=== PATIENT | male | born 1940 | race Caucasian/White ===

== ENCOUNTER 2023-12-21 13:23 | Outpatient (OUT) | payer MEDICARE, SELFPAY ==
[2023-12-21 14:40] LABS: Prostate Specific Antigen Dx <0.13 ng/mL (<=4.00)
== END 2023-12-21 13:24 | disposition home or self-care (01) ==
PROVIDERS: PCP Family Medicine; Visit Provider Physician Assistant
DX: Z85.46 Personal history of malignant neoplasm of prostate (principal)
CPT/HCPCS: 36415; 84153

== ENCOUNTER 2024-07-03 08:40 | Outpatient (OUT) | payer MEDICARE, SELFPAY ==
[2024-07-03 09:29] LABS: Anion Gap 13.4; Calcium 9.8 mg/dL (8.5-10.1); Carbon Dioxide 27.4 mmol/L (21.0-32.0); Chloride 106 mmol/L (98-107); Estimated GFR (African America >60 (>=60 mL/min/1.73m^2); Estimated GFR (Non-African Ame 51 (>=60 mL/min/1.73m^2); Glucose 110 mg/dL (74-106); Potassium 4.8 mmol/L (3.5-5.1); Sodium 142 mmol/L (136-145)
[2024-07-03 09:38] LABS: Hematocrit 43.1 % (42.0-54.0); Hemoglobin 14.5 g/dL (14.0-18.0); Mean Corpuscular HGB Conc 33.6 g/dL (29.9-35.2); Mean Corpuscular Volume 92.3 fL (80.0-94.0); Mean Platelet Volume 9.7 fL (9.5-13.5); Platelet Count 195 10^3/uL (150-450); Red Blood Count 4.67 10^6/uL (4.70-6.10); Red Cell Distribution Width 14.1 % (11.0-15.0); White Blood Count 3.1 10^3/uL (4.0-11.0)
[2024-07-03 11:38] LABS: Lymphocytes Absolute Manual 0.89 10^3/uL (1.20-3.80); Segmented Neut Absolute Manual 1.61 10^3/uL (1.4-6.5)
[2024-07-03 11:39] LABS: Basophils Abs Manual 0.06 10^3/uL (0.00-0.10); Eosinophils Absolute Manual 0.12 10^3/uL (0.00-0.70)
== END 2024-07-03 08:41 | disposition home or self-care (01) ==
LOC: LAB 08:41
PROVIDERS: PCP Family Medicine; Visit Provider Internal Medicine Interventional Cardiology
DX: I25.810 Atherosclerosis of coronary artery bypass graft(s) without angina pectoris (principal)
CPT/HCPCS: 36415; 80048; 85007; 85027

== ENCOUNTER 2024-07-11 12:47 | Outpatient (OUT) | payer MEDICARE, SELFPAY ==
--- NOTE | 2024-07-11 13:00 | CA_ITS ---
Patient Name: REJI POWELL MR#: [id number] : 1940 Exam Date: 07/11/2024 Ordering Doctor: RUSSEL ALBERTS CNP ECHOCARDIOGRAM REPORT PROCEDURE: CA ECHO LIMITED INDICATIONS: Chest pain, pericarditis, cardiac stents, CABGx3, hypertension, COPD COMPARISON: None. DESCRIPTION: Limited ECHOCARDIOGRAM Real-time transthoracic echocardiography with 2D and M-mode performed. QUALITY: Technical quality was adequate. Limited echocardiogram per physician order. LEFT VENTRICLE: Normal chamber size. Normal left ventricular wall thickness. Systolic function is at the lower limits of normal. LV EF: Lower limits of normal left ventricular ejection fraction, (50-55%). DIASTOLIC: ATRIAL SEPTUM: LEFT ATRIUM: Severe dilatation. RIGHT ATRIUM: Severe dilatation. RIGHT VENTRICLE: Mild dilatation. Normal systolic function. TRICUSPID VALVE: Normal mobility and thickness. MITRAL VALVE: Normal mobility and thickness. Mildly calcified tip of anterior mitral leaflet AORTIC VALVE: Normal trileaflet appearance. Mildly calcified aortic valve. Normal leaflet mobility. AORTIC ROOT: Aortic root is moderately dilated (4.5 cm). Ascending aorta is mildly dilated (3.9 cm). PULMONIC VALVE: Normal thickness and mobility. PERICARDIUM: No evidence of pericardial effusion. IVC: IVC is dilated (2.2 cm), does not full collapse. PLEURA: CONCLUSION: 1. Normal left ventricular size. Systolic function is at the lower limits of normal. LVEF is estimated at 50 to 55%. 2. Mildly dilated right ventricle with normal systolic function. 3. Severe biatrial dilatation. 4. Moderately dilated aortic root and mildly dilated ascending aorta. 5. No pericardial effusion. Adult Echocardiography Procedure Report Left Ventricle LVEDD (3.7 - 5.6 cm): 4.86 cm LVESD (2.2 - 4.0 cm): 3.71 cm LVIVS thickness (0.6 - 1.2 cm): 1.11 cm LVPW thickness (0.5 - 1.0 cm): 1.08 cm LVOT Diameter 2.53 cm Left Atrium LA Volume Index (2D A2C): 46.87 ml/m2 Left Atrium Systolic Dimension: 4.54 cm Mitral Valve Right Ventricle Aorta AO Root Diam: 4.51 cm Ascending Ao Diam: 3.87 cm Aortic Valve Tricuspid Valve Pulmonic Valve Right Atrium Right Atrium Systolic Pressure: 94.58 ml, 94.58 ml Dictated by: Eliezer Juarez M.D. on 07/11/2024 at 21:17 Approved by: Eliezer Juarez M.D. on 07/11/2024 at 21:20
[2024-07-11 13:36] LABS: Hematocrit 40.9 % (42.0-54.0); Hemoglobin 13.9 g/dL (14.0-18.0); Mean Corpuscular Hemoglobin 31.1 pg (25.9-34.0); Mean Corpuscular Volume 91.5 fL (80.0-94.0); Mean Platelet Volume 9.5 fL (9.5-13.5); Platelet Count 169 10^3/uL (150-450); Red Blood Count 4.47 10^6/uL (4.70-6.10); Red Cell Distribution Width 13.9 % (11.0-15.0); White Blood Count 3.3 10^3/uL (4.0-11.0)
[2024-07-11 13:54] LABS: Eosinophils Absolute Manual 0.13 10^3/uL (0.00-0.70); Lymphocytes Absolute Manual 0.59 10^3/uL (1.20-3.80); Monocytes Absolute Manual 0.52 10^3/uL (0.30-0.80); Segmented Neut Absolute Manual 2.04 10^3/uL (1.4-6.5)
[2024-07-11 14:04] LABS: Anion Gap 15.1; BUN Creatinine Ratio 11.4; Calcium 8.9 mg/dL (8.5-10.1); Carbon Dioxide 27.3 mmol/L (21.0-32.0); Chloride 108 mmol/L (98-107); Estimated GFR (African America >60 (>=60 mL/min/1.73m^2); Estimated GFR (Non-African Ame 52 (>=60 mL/min/1.73m^2); Glucose 94 mg/dL (74-106); Potassium 4.4 mmol/L (3.5-5.1); Sodium 146 mmol/L (136-145)
[2024-07-11 14:08] LABS: Erythrocyte Sedimentation Rate 20 mm/hr (<=20)
== END 2024-07-11 12:48 | disposition home or self-care (01) ==
LOC: LAB 12:49
PROVIDERS: PCP Family Medicine; Visit Provider Nurse Practitioner Family
DX: R07.9 Chest pain, unspecified (principal); I31.9 Disease of pericardium, unspecified
CPT/HCPCS: 36415; 80048; 85007; 85027; 85652; 86140; 93308

== ENCOUNTER 2025-04-15 12:49 | Outpatient (OUT) | payer MEDICARE, SELFPAY ==
--- OUTSIDE RECORDS SUMMARY | 2025-04-02 12:00 | XMS_ITS | Encounter Summary ---
Author Organization [facility] Address [address] [place] [address] Care Team Providers Care Marketing Research Intern Name Role Phone Nikko Bird MD Primary Care Provider [phone] System, Provider Not In Unavailable Unavaila ble Reason for Visit * Reason Comments Follow-up FU - WOUND CHECK - s /p R FEM-TIB BYPASS, 03/17 - APPT PER KULDEEP ZELAYA Encounter Details Date Type Department Care Team (Late st Contact Info) Description 04/02/2025 12:00 PM EDT Follow-Up [facility] [address] [phone] Gracy Millan MD [facility] [address] Critical lower limb ischemia (HCC) (Primary Dx) Social History Tobacco Use Types Packs/Day Years Used Date Smoking Tobacco: Never Smokeless Tobacco: Never Alcohol Use Standard Drinks/Week Comments Not Currently 0 (1 standard drink = 0.6 oz pur e alcohol) [facility] Utilities Answer Date Recorded In the past 12 months has th e electric, gas, oil, or water company threatened to shut off services in your home? No 03/14/2025 Humiliation, Afraid, Rape, and Kick questionnair e Answer Date Recorded Within the last year, have y ou been afraid of your partner or ex-partner? No 03/14/2025 Within the last year, have y ou been humiliated or emotionally abused in other ways by your partner or ex-partner? No Within the last year, have y ou been kicked, hit, slapped, or otherwise physically hurt by your partner or ex-partner? No 03/14/2025 Within the last year, have y ou been raped or forced to have any kind of sexual activity by your partner or ex-partner? No 03/14/2025 PHQ-2 Answer Date Recorded PHQ-2 Total Score 0 03/15/2025 Hunger Vital Sign Answer Date Recorded Within the past 12 months, y ou worried that your food would run out before you got the money to buy more. Never true 03/14/20 25 Within the past 12 months, t he food you bought just didn't last and you didn't have money to get more. Never true 03/14/2025 PRAPARE - Transportation Answer Date Re corded In the past 12 months, has l ack of transportation kept you from medical appointments or from getting medications? No 02/25 In the past 12 months, has l ack of transportation kept you from meetings, work, or from getting things needed for daily living? No 03/14/2025 Housing Stability Vital Sign Answer Michael e Recorded In the last 12 months, was t here a time when you were not able to pay the mortgage or rent on time? No 03/14/2025 In the past 12 months, how m any times have you moved where you were living? 1 03/14/2025 At any time in the past 12 m [facility], were you homeless or living in a nursing home (including now)? No 03/14/2025 Sex and Gender Information Value Date Recorded Sex Assigned at Not on file Legal Sex Male 2:37 PM EDT Gender Identity Male 09/04/2018 8:23 PM EST Sexual Orientation Straight 09/04/2018 8: 23 PM EST documented as of this encounter Last Filed Vital Signs Vital Sign Reading Time Taken Comments Blood Pressure 121/65 04/02/2025 11:54 AM EDT Pulse 68 04/02/2025 11:54 AM EDT Temperature - - Respiratory Rate 12 04/02/2025 11:54 AM EDT Oxygen Saturation 92% 04/02/2025 11:54 AM EDT Inhaled Oxygen Concentration - - Weight 109.8 kg (242 lb) 04/02/2025 11:54 AM EDT Height 188 cm (6' 2 ) 04/02/2025 11:54 AM EDT Body Mass Index 31.07 04/02/2025 11:54 AM EDT documented in this encounter Progress Notes * Gracy Millan MD - 04/02/2025 12:11 PM EDT I saw Mr. Gray today in office for a postoperative follow-up visit. He is an 85-year-old gentleman well-known to me in whom I recently did a right SFA to peroneal bypass using left cephalic vein. This was performed for chronic limb threatening ischemia with early ischemic changes to the hallux. His postoperative course was uncomplicated and he is pleased with his results he is no longer having rest pain and is slowly recovering sensation to the foot. He has a periungual right hallux ulcerationwhich she has been keeping a dry dressing on. He continues on his aspirin Xarelto and statin. BP 121/65 (BP Location: Right arm, Patient Position: Sitting, BP Cuff Size: X- large Adult) Pulse 68 Resp 12 Ht 6' 2 Wt 109.8 kg (242 lb) SpO2 92% BMI 31.07 kg/m?? NAD Breathing comfortably Surgical incisions all c/d/I Trace edema in the foot and ankle. Foot WWP Strong DP/PT doppler signals Toe painted with betadine and dry dressing A/P: f/u in 2-4 weeks with bilateral graft duplexes and ABIs. Continue with meticulous foot care and OMT. documented in this encounter Plan of Treatment Upcoming Encounters Date Type Department Care Team (Late st Contact Info) Description 04/23/2025 1:00 PM EDT Appointment [facility] [address] [place] [address] Gracy Millan MD [address] [facility] [address] [place] [address] 04/23/2025 2:00 PM EDT Appointment [facility] [address] [place] [address] Gracy Millan MD [address] [facility] [address] [place] [address] 04/23/2025 3:15 PM EDT Follow-Up [facility] [address] [facility] [address] [place] [phone] Gracy Millan MD [facility]5 [facility] [address] [place] [address] documented as of this encounter Visit Diagnoses Diagnosis Critical lower limb ischemia (HCC)- Primary Unspecified circulatory system disorder documented in this encounter Additional Health Concerns Assessment Noted Time PHQ-2 Depression Total Score: 0 03/15/20 25 8:30 PM EDT documented as of this encounter Care Teams Marketing Research Intern Relationship Specialty Start Date End Date Nikko Bird MD [address] [place] [id number] PCP - General Family Medicine 09/04/18 System, Provider Not In 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
--- OUTSIDE RECORDS SUMMARY | 2025-04-08 11:30 | XMS_ITS | Encounter Summary ---
Author Organization [facility] Healthcare Address [address] [place] [address] Care Team Providers Care Shuttleless Loom Weaver Name Role Phone Nikko Bird MD Unavailable Nikko Bird MD Primary Care Provider [phone] Elaine Saab LPN Unavailable Reason for Referral * Home Health (Stat) - Authorized Specialty Diagnoses / Procedures Referred By Jason christie Referred To Contact Home Health Services Diagnoses Ischemic toe ulcer, right, with 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) Zoë King PA [address] [facility] 110 [place] [address] Phone: tel: fax: [facility] [id number] [facility] [address] [place] [address] fax: Referral ID Status Reason Start Date Expiration Date Visits Requested Visits Authorized [id number] Authorized Specialty Services Required 04/08/2025 06/07/[phone] Scheduling Instructions Please call pt to schedule. Believes he is currently using [facility] (not currently for wound care) * Consultation (Stat) - Closed Specialty Diagnoses / Procedures Referred By Jason christie Referred To Contact Podiatry Diagnoses PVD (peripheral vascular disease) with claudication Ischemic toe ulcer, right, with 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) Procedures [place] OFFICE/OUTPATIENT NEW HIGH MDM 60 MINUTES Zoë King PA 112 [facility] 110 [place] [address] Phone: tel: fax: Emmanuel Gonzalez DPM 112 [facility] [address] [place] [address] Phone: tel: fax: Referral ID Status Reason Start Date Expiration Date V isits Requested Visits Authorized [id number] Closed Specialty Services Required 04/08/2025 10/05/2025 1 1 Scheduling Instructions Please call pt to schedule. Soonest appt preferred. Ok to change to [facility] if appointment available sooner. Encounter Details Date Type Department Care Team (Late st Contact Info) Description 04/08/2025 11:30 AM EDT Office Visit [facility] [place] 112 [facility] 110 [place] [id number] Zoë King PA 112 [facility] 110 [place] [address] PVD (peripheral vascular disease) with claudication (Primary [...] Recorded Patient Health Questionnaire-2 Score 0 04/08/2025 [facility] Occupat ional Health - [...] any time in the past 12 m [facility], were you homeless or living in a halfway (including now)? No 06/21/2024 Sex and Gender [...] Carotid artery disease Cataract 2014 Cellulitis 01/19/2022 [facility] Cellulitis LLE Colon polyps 2011 Critical lower limb ischemia ([facility]) 09/04/2018 Last Assessment & Plan: Pt s/p LLE angiogram with Dr Hahn who feels that the pt has no further endovascular options. He has consulted Dr. Millan for a possible tibial bypass. Pt s/p LLE critical limb ischemia Tyrrell class 4 rest pain with distal discoloration to histoes Gangrene of left foot (HCC) 10/04/2018 Groin hematoma 2014 RT Femoral groin Hematoma H/O myocardial perfusion scan 07/09/2019 LVEF 56% Myocardial perfusion imaging shows a defect in Apical wall Herpes zoster 09/04/2011 History of being hospitalized 12/06/2020 Strep Pneumonia, Resp. Failure - [facility] History of being hospitalized [place] [facility] 07/15/2021-07/16/2021 History of coronary angiogram [...] 2009 SOB (shortness of breath) Unstable angina ([facility]) 2013 XR 06/18/2019 XR shows impingement to [...] bowel prep Diverticulosis Dr. Rowe at [facility] COLONOSCOPY W/ POLYPECTOMY 2011 CORONARY ARTERY BYPASS [...] HISTORY 04/25/[address] Hahn [place] MEDICATION MANAGEMENT 11/2020 Multi resistant Strep Pneumonia, [...] Upcoming Encounters Date Type Department Care Team ([facility] st Contact Info) Description 04/24/2025 1:00 PM EDT Office Visit [facility] 112 [facility] 120 [place] [phone] Emmanuel Gonzalez DPM 3006 [facility] 5 [place] [address] Scheduled Orders Name Type Priority Associated Diagnoses [...] documented as of this encounter Care Teams Shuttleless Loom Weaver Relationship Specialty Start Date End Date Nikko Bird MD 112 [facility] 110 [place] [address] PCP - [employer] 08/28/17 Nikko Bird MD 112 [facility] 110 [place] [address] PCP - General Family Medicine 03/09/23 Elaine Saab LPN [address] [place] [address] 11/15/24 documented as of this encounter
--- OUTSIDE RECORDS SUMMARY | 2025-04-14 13:30 | XMS_ITS | Encounter Summary ---
Author Organization [facility] Address [address] [place] [address] Care Team Providers Care Supervisor Nurse Name Role Phone Nikko Bird MD Unavailable Nikko Bird MD Primary Care Provider [phone] Elaine Saab LPN Unavailable Reason for Referral * Imaging (Routine) - Closed Specialty Diagnoses / Procedures Referred By Contac t Referred To Contact Radiology Diagnoses Osteomyelitis of right foot, unspecified type (HCC) Procedures MR foot right wo IV contrast Nikko Bird MD [address] [facility] 110 [place] [address] Phone: tel: fax: [facility] [address] [facility] 130 [place] [address] Phone: tel: fax: Referral ID Status Reason Start Date Expiration Date Visits Re quested Visits Authorized [id number] Closed 04/14/2025 06/13/2025 1 1 Reason for Visit * Reason Comments Foot Ulcer Encounter Details Date Type Department Care Team (Late st Contact Info) Description 04/14/2025 1:30 PM EDT Office Visit [facility] [place] [address] [facility] 110 [place] [address] Nikko Bird MD [address] [facility] 110 [place] [address] PVD (peripheral vascular disease) with claudication (Primary [...] Recorded Patient Health Questionnaire-2 Score 0 04/14/2025 [facility] of Occupat ional Health - Occupational Stress [...] any time in the past 12 m [facility], were you homeless or living in a [...] Carotid artery disease Cataract 2014 Cellulitis 01/19/2022 [facility] Cellulitis LLE Colon polyps 2012 Critical lower limb ischemia ([facility]-H[facility]) 09/04/2018 Last Assessment & Plan: Pt s/p [...] Failure - [facility] History of being hospitalized [place] - [facility] 07/15/2021-07/16/2021 History of coronary angiogram [...] (HCC) 10/2016 Preinfarcation syndrome, CABGx3 Prostate cancer ([facility]) 2009 SOB (shortness of breath) Unstable angina ([facility]) 2014 XR 06/18/2019 XR shows impingement to [...] incomplete bowel prep Diverticulosis Dr. Rowe at [facility] COLONOSCOPY W/ POLYPECTOMY 2011 CORONARY ARTERY [...] HISTORY 04/25/[address] LE [address] Hahn [place] MEDICATION MANAGEMENT 11/2020 Multi resistant Strep Pneumonia, [...] PM EDT Office Visit [facility] [address] [facility] 120 [place] [address] Emmanuel Gonzalez DPM 3006 [facility] 5 [place] [address] documented as of this encounter Results * [...] documented as of this encounter Care Teams Supervisor Nurse Relationship Specialty Start Date End Date Nikko Bird MD [address] [facility] 110 [place] [address] PCP - [employer] 08/28/17 Nikko Bird MD [address] [facility] 110 [place] [address] PCP - General Family Medicine 03/09/23 Elaine Saab LPN [address] [facility] 110 [place] [address] 11/15/24 documented as of this encounter
--- OUTSIDE RECORDS SUMMARY | 2025-04-15 08:00 | XMS_ITS | Encounter Summary ---
Author Organization [facility] Address [address] [place] [address] Care Team Providers Care Ecommerce Merchandising Manager Name Role Phone Nikko Bird MD Unavailable Nikko Bird MD Primary Care Provider [phone] Elaine Saab LPN Unavailable Reason for Visit * Imaging (Routine) - Closed Specialty Diagnoses / Procedures Referred By Contac t Referred To Contact Radiology Diagnoses Osteomyelitis of right foot, unspecified type (HCC) Procedures MR foot right wo IV contrast Nikko Bird MD 112 [facility] [address] [place] [address] Phone: tel: fax: [facility] [address] [facility] 130 [place] [address] Phone: tel: fax: Referral ID Status Reason Start Date Expiration Date Visits Re quested Visits Authorized [id number] Closed 04/14/2025 06/13/2025 1 1 Encounter Details Date Type Department Care Team (Latest Contact Info) Description 04/15/2025 8:00 AM EDT Ancillary Procedure [facility] [address] [facility] [address] [place] [address] Osteomyelitis of right foot, unspecified type (HCC) [...] Recorded Patient Health Questionnaire-2 Score 0 04/14/2025 [facility] of Occupat ional [facility] - Occupational Stress Questionnaire Answer Date Recorded [...] the money to buy more. Never true 10/25/20 24 Within the past 12 months, t [...] any time in the past 12 m [facility], were you homeless or living in a half-way (including now)? No 06/21/2024 Sex and Gender Information Value Date Recorded Sex Assigned at Not on file Legal Sex Male 7:18 PM EDT Gender Identity Not on file Sexual Orientation Not on file documented as of this encounter Plan of Treatment Upcoming Encounters Date Type Department Care Team (Late st Contact Info) Description 04/24/2025 1:00 PM EDT Office Visit [facility] 112 [facility] 120 [place] [address] Emmanuel Gonzalez DPM 300 [facility] [address] [place] [address] documented as of this encounter Procedures Procedure Name Priority Date/Time Associated Diagnosis Comments MR FOOT RIGHT WO IV CONTRAST Routine 04/15/2025 8:44 AM EDT Osteomyelitis of right foot, unspecified type (HCC) documented in this encounter Results * MR foot right [...] excluded. ELECTRONICALLY SIGNED BY: Dom Ruiz DO us Nikko Bird MD IMG MRI PROCEDURES Final Result documented in this encounter Visit Diagnoses Diagnosis Osteomyelitis of right foot, unspecified type (HCC) documented in this encounter Additional Health Concerns Assessment Noted Time PHQ-9 Depression Total Score: 0 04/26/20 24 9:00 AM EDT documented as of this encounter Care Teams Ecommerce Merchandising Manager Relationship Specialty Start Date End Date Nikko Bird MD 112 [facility] 110 [place] [address] PCP - [facility] 08/28/17 Nikko Bird MD [address] [place] [facility] 110 [place] [address] PCP - General Family Medicine 03/09/23 Elaine Saab LPN [address] [place] [facility] 110 [place] [address] 11/15/24 documented as of this encounter
--- OUTSIDE RECORDS SUMMARY | 2025-04-15 12:55 | XMS_ITS | Encounter Summary ---
Author Organization [facility] Address [address] [place] [address] Care Team Providers Care Tin Plater Name Role Phone Nikko Bird MD Unavailable Nikko Bird MD Primary Care Provider [phone] Elaine Saab LPN Unavailable Encounter Details Date Type Department Care Team (Late st Contact Info) Description 03/12/2025 Abstract [facility] [place] [facility] [address] [facility] 110 [place] [address] Nikko Bird MD [address] [facility] 110 [place] [address] Social History Tobacco Use Types Packs/Day Years [...] Date Recorded Patient Health Questionnaire-2 Score 0 01/09/2025 [employer] of Occupat ional Health - Occupational Stress [...] any time in the past 12 m [facility], were you homeless or living [...] EDT Office Visit [facility] [address] [facility] 120 [place] [phone] Emmanuel Gonzalez DPM 3006 [facility] 5 [place] [address] documented as of this encounter Visit Diagnoses Not on filedocumented in this encounter Additional Health Concerns Assessment Noted Time PHQ-9 Depression Total Score: 0 04/26/20 24 9:00 AM EDT documented as of this encounter Care Teams Tin Plater Relationship Specialty Start Date End Date Nikko Bird MD [address] [facility] 110 [place] [address] PCP - [employer] 08/28/17 Nikko Bird MD [address] [facility] 110 [place] [address] PCP - General Family Medicine 03/09/23 Elaine Saab LPN [address] [facility] 110 [place] [address] 11/15/24 documented as of this encounter
--- OUTSIDE RECORDS SUMMARY | 2025-04-15 12:56 | XMS_ITS | Encounter Summary ---
Author Organization [facility] Address [address] [place] [address] Care Team Providers Care Field Artillery Targeting Technician Name Role Phone Nikko Bird MD Unavailable Nikko Bird MD Primary Care Provider [phone] Elaine Saab LPN Unavailable Encounter Details Date Type Department Care Team (Late st Contact Info) Description 04/10/2025 Abstract [facility] [place] [facility] [address] [facility] 110 [place] [address] Nikko Bird MD [address] [facility] 110 [place] [address] Social History Tobacco Use Types Packs/Day Years [...] Recorded Patient Health Questionnaire-2 Score 0 04/14/2025 [facility] of Occupat ional Health - Occupational Stress [...] any time in the past 12 m [facility], were you homeless or living in a longterm (including now)? No 06/21/2024 Sex and Gender [...] Visit [facility] [address] [facility] 120 [place] [phone] Emmanuel Gonzalez DPM 3006 [facility] 5 [place] [address] documented as of this encounter Visit Diagnoses Not on filedocumented in this encounter Additional Health Concerns Assessment Noted Time PHQ-9 Depression Total Score: 0 04/26/20 24 9:00 AM EDT documented as of this encounter Care Teams Field Artillery Targeting Technician Relationship Specialty Start Date End Date Nikko Bird MD [address] [facility] 110 [place] [address] PCP - [employer] 08/28/17 Nikko Bird MD [address] [facility] 110 [place] [address] PCP - General Family Medicine 03/09/23 Elaine Saab LPN [address] [facility] 110 [place] [address] 11/15/24 documented as of this encounter
--- OUTSIDE RECORDS SUMMARY | 2025-04-15 12:56 | XMS_ITS | Encounter Summary ---
Author Organization [facility] Address [address] [place] [address] Care Team Providers Care Funeral Pre Need Consultant Name Role Phone Nikko Bird MD Unavailable Nikko Bird MD Primary Care Provider [phone] Elaine Saab LPN Unavailable Encounter Details Date Type Department Care Team (Late st Contact Info) Description 04/09/2025 Telephone [facility] [address] [facility] 110 [place] [phone] Zoë King PA [address] [facility] 110 [place] [address] Social History Tobacco Use Types Packs/Day Years [...] Recorded Patient Health Questionnaire-2 Score 0 04/08/2025 [facility] of Occupat ional Health - [...] any time in the past 12 m [facility], were you homeless or living in a detention (including now)? No 06/21/2024 Sex and Gender Information Value Date Recorded Sex Assigned at Not on file Legal Sex Male 7:18 PM EDT Gender Identity Not on file Sexual Orientation Not on file documented as of this encounter Miscellaneous Notes * Telephone Encounter - LEONARDA Villavicencio - 04/09/2025 1:16 PM EDT The incorrect test was run through [facility]. They said they did not receive the order electronically and then entered in the wrong test. They will fax a correction form that I have to sign, then the correct test will be run. She stated he will only be charged for the test that I ordered, not the add onthat they ran in error. [facility] documented in this encounter Plan of Treatment Upcoming Encounters Date Type Department Care Team (Late st Contact Info) Description 04/24/2025 1:00 PM EDT Office Visit [facility] [address] [facility] 120 [place] [address] Emmanuel Gonzalez DPM 3006 [facility] 5 [place] [address] documented as of this encounter Visit Diagnoses Not on filedocumented in this encounter Additional Health Concerns Assessment Noted Time PHQ-9 Depression Total Score: 0 04/26/20 24 9:00 AM EDT documented as of this encounter Care Teams Funeral Pre Need Consultant Relationship Specialty Start Date End Date Nikko Bird MD [address] [facility] 110 [place] [address] PCP - [employer] 08/28/17 Nikko Bird MD [address] [facility] 110 [place] [address] PCP - General Family Medicine 03/09/23 Elaine Saab LPN 112 [facility] 110 [place] [address] 11/15/24 documented as of this encounter
--- OUTSIDE RECORDS SUMMARY | 2025-04-15 12:56 | XMS_ITS | Encounter Summary ---
Author Organization [facility] Address [address] [place] [address] Phone Care Team Providers Care Aircraft Painter Apprentice Name Role Phone Unavailable Primary Care Provider Unavailabl e Encounter Details Date Type Department Care Team (Late st Contact Info) Description 10/17/2023 Scanned Document [facility] [address] [place] [phone] Scanning, Generic Provider Social History Tobacco Use Types Packs/Day Years Used Date Smoking Tobacco: Never Assessed Sex and Gender Information Value Date Recorded Sex Assigned at Not on file Legal Sex Male 4:23 PM EST Gender Identity Not on file Sexual Orientation Not on file documented as of this encounter Plan of Treatment Not on file documented as of this encounter Procedures Procedure Name Priority Date/Time Associated Diagnosis Comments ECHOCARDIOGRAM 10/17/2023 documented in this encounter Results * ECHOCARDIOGRAM (10/17/2023) Narrative 10/17/2023 Ordered by an unspecified provider. us Generic Provider Scanning CV ECHO PROCEDURES Fin al Result documented in this encounter Visit Diagnoses Not on filedocumented in this encounter
--- OUTSIDE RECORDS SUMMARY | 2025-04-15 12:56 | XMS_ITS | Encounter Summary ---
Author Organization [facility] Address [address] [place] [address] Care Team Providers Care Sound Ranging Crewmember Name Role Phone Nikko Bird MD Unavailable Nikko Bird MD Primary Care Provider [phone] Elaine Saab LPN Unavailable Encounter Details Date Type Department Care Team ([facility] Contact Info) Description 04/10/2025 Abstract [facility] 112 [facility] 120 [place] [address] Emmanuel Gonzalez DPM 3005 [facility] 5 [place] [address] Social History Tobacco Use Types Packs/Day Years [...] Patient Health Questionnaire-2 Score 0 04/14/2025 [facility] of Occupat ional Health - [...] money to buy more. Never true 06/21/20 Within the past 12 months, t he [...] any time in the past 12 m [facility], were you homeless or living [...] Visit [facility] [address] [facility] 120 [place] [phone] Emmanuel Gonzalez DPM 3006 [facility] 5 [place] [address] documented as of this encounter Visit Diagnoses Not on filedocumented in this encounter Additional Health Concerns Assessment Noted Time PHQ-9 Depression Total Score: 0 04/26/20 24 9:00 AM EDT documented as of this encounter Care Teams Sound Ranging Crewmember Relationship Specialty Start Date End Date Nikko Bird MD [address] [facility] 110 [place] [address] PCP - [employer] 08/28/17 Nikko Bird MD [address] [facility] 110 [place] [address] PCP - General Family Medicine 03/09/23 Elaine Saab LPN [address] [facility] 110 [place] [address] 11/15/24 documented as of this encounter
--- OUTSIDE RECORDS SUMMARY | 2025-04-15 12:56 | XMS_ITS | Clinical Summary ---
Author Organization [facility] Address [address] [place] [address] Phone Care Team Providers Care Plant Senior Manager Name Role Phone Unavailable Primary Care Provider Unavailabl e Social History Tobacco Use Types Packs/Day Years Used Date Smoking Tobacco: Never Assessed Sex and Gender Information Value Date Recorded Sex Assigned at Not on file Legal Sex Male 4:23 PM EST Gender Identity Not on file Sexual Orientation Not on file Plan of Treatment Health Maintenance Due Date Last Done Comments Lipid Panel 1940 Medicare Annual Wellness Vis it (AWV) 1940 DTaP/Tdap/Td Vaccines (1 - Tdap) 1961 Pneumococcal Vaccine (1 of 1 - PCV) 1989 Zoster Vaccines (1 of 2) 1989 RSV High Risk: (Elderly (60+ ) or Population) (1 - 1-dose 75+ series) 2014 COVID-19 Vaccine ( - 2023-2 5 season) 2024 Influenza Vaccine (#1) 2025 HIB Vaccines Aged Out No longer eligi ble based on patient's age to complete this topic HPV Vaccines Aged Out No longer eligi ble based on patient's age to complete this topic Hepatitis A Vaccines Aged Out No long er eligible based on patient's age to complete this topic Hepatitis B Vaccines Aged Out No long er eligible based on patient's age to complete this topic IPV Vaccines Aged Out No longer eligi ble based on patient's age to complete this topic Meningococcal Vaccine Aged Out No alexandra shadi eligible based on patient's age to complete this topic Rotavirus Vaccines Aged Out No longer eligible based on patient's age to complete this topic Insurance [employer] GOLD CHOICE
--- OUTSIDE RECORDS SUMMARY | 2025-04-15 12:56 | XMS_ITS | Clinical Summary ---
Author Organization [employer] Address [id number] [address] [place] [address] Care Team Providers Care Cloth Layer Name Role Phone Nikko Bird MD Primary Care Provider [phone] Allergies Active Allergy Reactions Criticality Noted Date Comments Oxycodone Anaphylaxis High 11/24/2016 Medications amiodarone (PACERONE) 200 mg tablet Take by mouth. Active aspirin 81 mg Take 162 mg by mouth. Active ASPIRIN ORAL Take 81 mg by mouth. Active atorvastatin (LIPITOR) 40 mg tablet Take by mouth. Active GABAPENTIN ORAL Take 100 mg by mouth 3 (three) times a day. Active metoprolol tartrate 75 mg tablet every 12 (twelve) hours. Active OXYCODONE HCL (OXYCODONE ORAL) Take 5-325 mg by mouth. Active warfarin (COUMADIN) 2.5 mg tablet One tablet p.o. 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) use of a nticoagulants [Z79.01] 11/15/2016 12/09/2016 Atrial fibrillation (HCC) [I48.91] 11/15/2016 12/09/2016 Social History Tobacco Use Types Packs/Day Years Used Date Smoking Tobacco: Never Assessed Childcare Answer Date Recorded Childcare Unknown 02/06/2019 Employment Answer Date Recorded Employment Unknown 02/06/2019 Purpose - Life Answer Date Recorded Purpose and direction in life Unknown Sex and Gender Information Value Date Recorded Sex Assigned at Not on file Legal Sex Male 11:35 AM EDT Gender Identity Not on file Sexual Orientation Not on file Last Filed Vital Signs Vital Sign Reading Time Taken Comments Blood Pressure 128/68 11/24/2016 10:29 AM EDT Pulse 83 11/24/2016 10:29 AM EDT Temperature 36.7 C (98 F) 11/24/2016 10:29 AM EDT Respiratory Rate 18 11/24/2016 10:29 AM EDT Oxygen Saturation - - Inhaled Oxygen Concentration - - Weight 106.6 kg (235 lb) 11/24/2016 10:29 AM EDT Height - - Body Mass Index - - Plan of Treatment Health Maintenance Due Date Last Done Comments Depression Screening 1952 Tobacco Screening 1952 DTaP,Tdap and Td Vaccines (1 - Tdap) 1958 Zoster (Shingles) Vaccine (1 of 2) 1989 Fall Risk Screening 01/04/2004 Influenza Vaccine 04/28/2025 [employer] Not on file Insurance [employer] MEDICARE Care Teams Cloth Layer Relationship Specialty Start Date End Date Nikko Bird MD [facility] [place] [address] PCP - General 11/16/16
--- OUTSIDE RECORDS SUMMARY | 2025-04-15 12:56 | XMS_ITS | Encounter Summary ---
Author Organization [facility] Address [address] [facility] [place] [address] Care Team Providers Care Vp Packaging Name Role Phone Nikko Bird MD Unavailable Nikko Bird MD Primary Care Provider [phone], Mary INFUSION THERAPY NURSE Unavailable [phone], Mary INFUSION THERAPY NURSE Unavailable [phone] Lorraine Morgan RN Unavailable [phone] Elaine Saab INFUSION THERAPY NURSE Unavailable Encounter Details Date Type Department Care Team (Late st Contact Info) Description 01/25/2023 Orders Only [facility] [place] [facility] [address] [place] [phone] Nikko Bird MD [address] [place] [address] Social History Tobacco Use Types Packs/Day Years Used Date Smoking Tobacco: Never Assessed Sex and Gender Information Value Date Recorded Sex Assigned at Not on file Legal Sex Male 7:18 PM EDT Gender Identity Not on file Sexual Orientation Not on file documented as of this encounter Plan of Treatment Upcoming Encounters Date Type Department Care Team (Late Contact Info) Description 04/24/2025 1:00 PM EDT Office Visit [facility] [address] [place] [address] Emmanuel Gonzalez DPM 3006 [facility] 5 [place] [address] documented as of this encounter Procedures Procedure Name Priority Date/Time Associated Diagnosis Comments ECHOCARDIOGRAM Routine 11/06/2022 1:08 PM EDT documented in this encounter Results * ECHOCARDIOGRAM (11/06/2022 1:08 PM EDT) Anatomical Region Laterality Modality Other Nikko Bird MD [facility] Final Result documented in this encounter Visit Diagnoses Not on filedocumented in this encounter Care Teams Vp Packaging Relationship Specialty Start Date End Date Nikko Bird MD [address] [place] [address] PCP - [employer] 08/28/17 Nikko Bird MD [address] [place] [address] PCP - General Family Medicine 03/09/23MondayMary LPN [address] [place] [address] Licensed Practical Nurse Family Medicine 09/21/2309/21Mary LPN [address] [place] [address] Licensed Practical Nurse Family Medicine 06/21/24 Lorraine Morgan, RN [address] [place] [address] Licensed Practical Nurse Family Medicine 10/04/2411/15 Elaine Saab LPN [address] [place] [address] 11/15/24 documented as of this encounter
--- OUTSIDE RECORDS SUMMARY | 2025-04-15 12:56 | XMS_ITS | Encounter Summary ---
Author Organization [facility] Address [address] [place] [address] Care Team Providers Care Sales Mgr Name Role Phone Nikko Bird MD Unavailable Nikko Bird MD Primary Care Provider [phone] Elaine Saab LPN Unavailable Encounter Details Date Type Department Care Team (Latest Contact Info) Description 04/14/2025 Travel Social History Tobacco Use Types Packs/Day Years [...] Recorded Patient Health Questionnaire-2 Score 0 04/14/2025 [facility] of Occupat ional [facility] - Occupational Stress Questionnaire Answer Date Recorded [...] any time in the past 12 m [facility], were you homeless or living in a detention (including now)? No 06/21/2024 Sex and Gender Information Value Date Recorded Sex Assigned at Not on file Legal Sex Male 7:18 PM EDT Gender Identity Not on file Sexual Orientation Not on file documented as of this encounter Functional Status * Over the [...] [place] documented as of this encounter Plan of Treatment Upcoming Encounters Date Type Department Care Team (Late st Contact Info) Description 04/24/2025 1:00 PM EDT Office Visit [facility] [address] [facility] 120 [place] [address] Emmanuel Gonzalez DPM 3006 [facility] 5 [place] [address] documented as of this encounter Visit Diagnoses Not on filedocumented in this encounter Additional Health Concerns Assessment Noted Time PHQ-9 Depression Total Score: 0 04/26/20 9:00 AM EDT documented as of this encounter Care Teams Sales Mgr Relationship Specialty Start Date End Date Nikko Bird MD [address] [place] [facility] 110 [place] [address] PCP - [employer] 08/28/17 Nikko Bird MD [address] [facility] 110 [place] [address] PCP - General Family Medicine 03/09/23 Elaine Saab LPN [address] [facility] 110 [place] [address] 11/15/24 documented as of this encounter
--- OUTSIDE RECORDS SUMMARY | 2025-04-15 12:56 | XMS_ITS | Encounter Summary ---
Author Organization [facility] Address [address] [place] [address] Care Team Providers Care Buckle Coverer Name Role Phone Nikko Bird MD Unavailable Nikko Bird MD Primary Care Provider [phone] Elaine Saab LPN Unavailable Encounter Details Date Type Department Care Team (Late st Contact Info) Description 04/08/2025 Bamboo flowsheet [facility] [address] [place] [address] [place] [address] Zoë King PA [address] [facility] 110 [place] [address] Social History Tobacco Use Types Packs/Day Years [...] Recorded Patient Health Questionnaire-2 Score 0 04/08/2025 [facility] of Occupat ional Health - Occupational Stress [...] any time in the past 12 m [facility], were you homeless or living in a assisted (including now)? No 06/21/2024 Sex and Gender Information Value Date Recorded Sex Assigned at Not on file Legal Sex Male 7:18 PM EDT Gender Identity Not on file Sexual Orientation Not on file documented as of this encounter Plan of Treatment Upcoming Encounters Date Type Department Care Team (Late st Contact Info) Description 04/24/2025 1:00 PM EDT Office Visit [facility] [address] [facility] 120 [place] [phone] Emmanuel Gonzalez DPM 3006 [facility] 5 [place] [address] documented as of this encounter Visit Diagnoses Not on filedocumented in this encounter Additional Health Concerns Assessment Noted Time PHQ-9 Depression Total Score: 0 04/26/20 24 9:00 AM EDT documented as of this encounter Care Teams Buckle Coverer Relationship Specialty Start Date End Date Nikko Bird MD [address] [facility] 110 [place] [address] PCP - [employer] 08/28/17 Nikko Bird MD [address] [facility] 110 [place] [address] PCP - General Family Medicine 03/09/23 Elaine Saab LPN [address] [facility] [address] [place] [address] 11/15/24 documented as of this encounter
--- OUTSIDE RECORDS SUMMARY | 2025-04-15 12:56 | XMS_ITS | Encounter Summary ---
Author Organization [facility] Address [address] [place] [address] Care Team Providers Care Wire Repairer Name Role Phone Nikko Bird MD Unavailable Nikko Bird MD Primary Care Provider Elaine Saab LPN Unavailable Encounter Details Date Type Department Care Team (Late st Contact Info) Description 03/17/2025 Abstract [facility] [place] [facility] [address] [facility] 110 [place] [address] Nikko Bird MD [address] [facility] 110 [place] [address] Social History Tobacco Use Types Packs/Day Years [...] Recorded Patient Health Questionnaire-2 Score 0 01/09/2025 [facility] of Occupat ional Health - Occupational Stress [...] any time in the past 12 m [facility], were you homeless or living in a penitentiary (including now)? No 06/21/2024 Sex and Gender [...] Visit [facility] [address] [facility] 120 [place] [address] Emmanuel Gonzalez DPM 3006 [facility] 5 [place] [address] documented as of this encounter Visit Diagnoses Not on filedocumented in this encounter Additional Health Concerns Assessment Noted Time PHQ-9 Depression Total Score: 0 04/26/20 24 9:00 AM EDT documented as of this encounter Care Teams Wire Repairer Relationship Specialty Start Date End Date Nikko Bird MD [address] [facility] 110 [place] [address] PCP - [employer] 08/28/17 Nikko Bird MD [address] [facility] 110 [place] [address] PCP - General Family Medicine 03/09/23 Elaine Saab LPN [address] [facility] 110 [place] [address] 11/15/24 documented as of this encounter
--- OUTSIDE RECORDS SUMMARY | 2025-04-15 12:56 | XMS_ITS | Encounter Summary ---
Author Organization [facility] Healthcare Address [address] [place] [address] Care Team Providers Care Product Safety Expert Name Role Phone Nikko Bird MD Unavailable Nikko Bird MD Primary Care Provider [phone] Elaine Saab LPN Unavailable Encounter Details Date Type Department Care Team (Late st Contact Info) Description 04/07/2025 Patient Outreach [facility] [address] [place] [phone] Elaine Saab LPN [address] [facility] 110 [place] [address] Social History Tobacco Use Types Packs/Day Years [...] Recorded Patient Health Questionnaire-2 Score 0 04/08/2025 [facility] of Occupat ional Health - Occupational [...] any time in the past 12 m [facility], were you homeless or living in a fci (including now)? No 06/21/2024 Sex and Gender Information Value Date Recorded Sex Assigned at Not on file Legal Sex Male 7:18 PM EDT Gender Identity Not on file Sexual Orientation Not on file documented as of this encounter Progress Notes * Elaine Saab LPN - 04/07/2025 9:11 AM EDT Images from the original note were not included. Spoke with pt for weekly monitoring. Pt states he is doing ok. He shares that the nail has come offof his big toe. He was a bit worried about it the other day because it looked bad and had an odor. However he shares that it looks better and seems to be improving now. I remind pt to keep a close eye out for s/s of infection and to call and get an appt if he has any symptoms. Pt voices understanding. He states that Dr. Millan gave him iodine to put on toe and he has been doing that. Pt denies any needs or concerns at this time. Flowsheet Row Patient Outreach from 04/07/[address] [facility] with Elaine Saab LPN Week Number Call Week 2 Call Was patient contacted successfully? Yes Have you had any urgent care/ED/Hospital visits since discharge? No Any medication changes since last contact? No Have you visited your PCP since discharge? Yes Have you visited your specialist since discharge? Yes [Dr. Millan 04/02. Next appt 04/23] Does patient have home health? yes What [facility] What is the patient's perception of their health status since discharge? Improving Is the patient/caregiver able to teach back the hierarchy of who to call/visit for symptoms/problems? PCP, Specialist, Home Health nurse, Urgent Care, ED, 911 Yes documented in this encounter Plan of Treatment Upcoming Encounters Date Type Department Care Team (Late st Contact Info) Description 04/24/2025 1:00 PM EDT Office Visit [facility] [address] [facility] [address] [place] [address] Emmanuel Gonzalez DPM 3006 [facility] 5 [place] [address] documented as of this encounter Visit Diagnoses Diagnosis Chronic diastolic (congestive) heart failure (HCC)- Primary Chronic bronchitis, unspecified chronic bronchitis type (HCC) documented in this encounter Additional Health Concerns Assessment Noted Time PHQ-9 Depression Total Score: 0 04/26/20 24 9:00 AM EDT documented as of this encounter Care Teams Product Safety Expert Relationship Specialty Start Date End Date Nikko Bird MD [address] [facility] 110 [place] [address] PCP - [employer] 08/28/17 Nikko Bird MD [address] [facility] 110 [place] [address] PCP - General Family Medicine 03/09/23 Elaine Saab LPN [address] [facility] 110 [place] [address] 11/15/24 documented as of this encounter
--- OUTSIDE RECORDS SUMMARY | 2025-04-15 12:56 | XMS_ITS | Encounter Summary ---
Author Organization [facility] Address [address] [place] [address] Care Team Providers Care Heavy Equipment Diesel Mechanic Name Role Phone Nikko Bird MD Unavailable Nikko Bird MD Primary Care Provider [phone], Mary WRIGHTN Unavailable [phone], Mary PARTY HOST Unavailable [phone] Lorraine Morgan RN Unavailable [phone] Elaine Saab PARTY HOST Unavailable Encounter Details Date Type Department Care Team (Late st Contact Info) Description 04/15/2023 Abstract [facility] [place] [address] [facility] 110 [place] [address] Nikko Bird MD 112 [facility] 110 [place], [place] [address] Social History Tobacco Use Types Packs/Day Years Used Date Smoking Tobacco: Never Tobacco Cessation:Counseling Given: Not Answered Alcohol Use Standard Drinks/Week Comments Not Currently 0 (1 standard drink = 0.6 oz pur e alcohol) Coffee 1-2 cups per day Sex and Gender Information Value Date Recorded Sex Assigned at Not on file Legal Sex Male 7:18 PM EDT Gender Identity Not on file Sexual Orientation Not on file documented as of this encounter Plan of Treatment Upcoming Encounters Date Type Department Care Team (Late st Contact Info) Description 04/24/2025 1:00 PM EDT Office Visit [facility] [address] [facility] [address] [place] [address] Emmanuel Gonzalez DPM 3006 [facility] 5 [place] [address] documented as of this encounter Visit Diagnoses Not on filedocumented in this encounter Care Teams Heavy Equipment Diesel Mechanic Relationship Specialty Start Date End Date Nikko Bird MD [address] [place] [address] PCP - [employer] 08/28/17 Nikko Bird MD [address] [place] [address] PCP - General Family Medicine 03/09/23MondayMary LPN [address] [place] [address] Licensed Practical Nurse Family Medicine 09/21/2309/21Mary LPN [address] [place] [address] Licensed Practical Nurse Family Medicine 06/21/24 Lorraine Morgan, KULDEEP [address] [place] [address] Licensed Practical Nurse Family Medicine 10/04/2411/15 Elaine Saab LPN [address] [facility] 110 [place] [address] 11/15/24 documented as of this encounter
--- OUTSIDE RECORDS SUMMARY | 2025-04-15 12:56 | XMS_ITS | Encounter Summary ---
Author Organization [facility] Address [address] [place] [address] Care Team Providers Care Returns Processor Name Role Phone Nikko Bird MD Unavailable Nikko Bird MD Primary Care Provider [phone] Elaine Saab LPN Unavailable Encounter Details Date Type Department Care Team (Late st Contact Info) Description 04/08/2025 Abstract [facility] [place] [facility] [address] [facility] 110 [place] [address] Nikko Bird MD [address] [facility] 110 [place] [address] Social History Tobacco Use Types Packs/Day Years [...] Recorded Patient Health Questionnaire-2 Score 0 04/08/2025 [facility] of Occupat ional Health - Occupational [...] any time in the past 12 m [facility], were you homeless or living in [...] L PN documented as of this encounter Plan of Treatment Upcoming Encounters Date Type Department Care Team (Late st Contact Info) Description 04/24/2025 1:00 PM EDT Office Visit [facility] 112 [facility] 120 [place] [phone] Emmanuel Gonzalez DPM 3006 [facility] 5 [place] [address] documented as of this encounter Visit Diagnoses Not on filedocumented in this encounter Additional Health Concerns Assessment Noted Time PHQ-9 Depression Total Score: 0 04/26/20 9:00 AM EDT documented as of this encounter Care Teams Returns Processor Relationship Specialty Start Date End Date Nikko Bird MD [address] [facility] 110 [place], [place] [address] PCP - [employer] 08/28/17 Nikko Bird MD [address] [facility] 110 [place] [address] PCP - General Family Medicine 03/09/23 Elaine Saab LPN [address] [facility] 110 [place] [address] 11/15/24 documented as of this encounter
--- OUTSIDE RECORDS SUMMARY | 2025-04-15 12:56 | XMS_ITS | Encounter Summary ---
Author Organization [facility] Address [address] [place] [address] Care Team Providers Care Child And Family Counselor Name Role Phone Nikko Bird MD Unavailable Nikko Bird MD Primary Care Provider [phone], Mary CAPACITY PLANNING ENGINEER Unavailable [phone], Mary CAPACITY PLANNING ENGINEER Unavailable [phone] Lorraine Morgan RN Unavailable [phone] Elaine Saab CAPACITY PLANNING ENGINEER Unavailable Encounter Details Date Type Department Care Team (Late st Contact Info) Description 02/02/2023 Abstract [facility] [place] [facility] 112 [facility] 110 [place] [phone] Zoë King PA 112 [facility] 110 [place] [address] Social History Tobacco Use Types Packs/Day Years [...] [facility] [address] 120 [place] [address] Emmanuel Gonzalez DPM 3006 [facility] 5 [place] [address] documented as of this encounter Visit Diagnoses Not on filedocumented in this encounter Care Teams Child And Family Counselor Relationship Specialty Start Date End Date Nikko Bird MD [address] [place] [address] PCP - [employer] 08/28/17 Nikko Bird MD [address] [place] [address] PCP - General Family Medicine 03/09/23Monday, ISABELLA Hernandez [address] [place] [address] Licensed Practical Nurse Family Medicine 09/21/2309/21, ISABELLA Hernandez [address] [place] [address] Licensed Practical Nurse Family Medicine 06/21/24 Lorraine Morgan, RN [address] [place] [address] Licensed Practical Nurse Family Medicine 10/04/2411/15 Elaine Saab LPN [address] [place] [address] 11/15/24 documented as of this encounter
--- OUTSIDE RECORDS SUMMARY | 2025-04-15 12:56 | XMS_ITS | Encounter Summary ---
Author Organization [facility] Address [address] [place] [address] Care Team Providers Care Subgrade Tester Name Role Phone Nikko Bird MD Unavailable Nikko Bird MD Primary Care Provider Elaine Saab LPN Unavailable Encounter Details Date Type Department Care Team (Late st Contact Info) Description 04/09/2025 Abstract [facility] [place] [facility] [address] [facility] 110 [place] [address] Nikko Bird MD [address] [facility] 110 [place] [address] Social History Tobacco Use Types Packs/Day Years [...] Recorded Patient Health Questionnaire-2 Score 0 04/08/2025 [facility] of Occupat ional Health - [...] any time in the past 12 m [facility], were you homeless or living in a mcfp (including now)? No 06/21/2024 Sex and Gender [...] [address] [facility] 120 [place] [address] Emmanuel Gonzalez DPM 3006 [facility] 5 [place] [address] documented as of this encounter Visit Diagnoses Not on filedocumented in this encounter Additional Health Concerns Assessment Noted Time PHQ-9 Depression Total Score: 0 04/26/20 24 9:00 AM EDT documented as of this encounter Care Teams Subgrade Tester Relationship Specialty Start Date End Date Nikko Bird MD [address] [facility] 110 [place] [address] PCP - [employer] 08/28/17 Nikko Bird MD [address] [facility] 110 [place] [address] PCP - General Family Medicine 03/09/23 Elaine Saab LPN [address] [facility] 110 [place] [address] 11/15/24 documented as of this encounter
--- OUTSIDE RECORDS SUMMARY | 2025-04-15 12:56 | XMS_ITS | Encounter Summary ---
Author Organization [facility] Address [address] [place] [address] Care Team Providers Care Pipe Stress Engineer Name Role Phone Nikko Bird MD Unavailable Nikko Bird MD Primary Care Provider [phone] Elaine Saab LPN Unavailable Reason for Visit * Reason Onset Date Comments posible med interaction 04/10/2025 Encounter Details Date Type Department Care Team (Late st Contact Info) Description 04/10/2025 [facility] [address] [facility] 110 [place] [address] Zoë King, LEONARDA 112 [facility] 110 [place], [place] [phone] posible med interaction Social History Tobacco Use Types Packs/Day Years [...] Recorded Patient Health Questionnaire-2 Score 0 04/08/2025 [facility] - Occupational Stress Questionnaire Answer Date Recorded [...] any time in the past 12 m [facility], were you homeless or living in a senior living (including now)? No 06/21/2024 Sex and Gender Information Value Date Recorded Sex Assigned at Not on file Legal Sex Male 7:18 PM EDT Gender Identity Not on file Sexual Orientation Not on file documented as of this encounter Progress Notes * Elaine Saab LPN - 04/10/2025 10:46 AM EDT Called pt and updated pt on additional antibiotic he is to start. Let pt know to take a probiotic while on antibiotics and to take with food. Pt does not know what a probiotic is and I explain it to him and let him know he can pick this up over the counter when getting his prescription filled. Pt voices understanding. documented in this encounter Miscellaneous Notes * Telephone Encounter - LEONARDA Villavicencio - 04/10/2025 9:59 AM EDT Ok to continue the Bactrim. Please let pt know that his wound grew three different types of bacteria, one of which is MRSA, which Bactrim will cover. The other two are not as well covered by the Bactrim. I would like him to take a second antibiotic to make sure all of the bacteria is covered. It will be important for him to take a probiotic daily while he is on the antibiotics to decrease the chance of GI s/e. Needs to take the antibiotics with food. * Telephone Encounter - Mya Marley LPN - 04/10/2025 9:25 AM EDT [facility] called there is a possible interaction between the bactrim and losartan ( did notsay what the interaction was) but needed you okay to let him have these meds unless you need to change the abx call nurse back at [phone] documented in this encounter Plan of Treatment Upcoming Encounters Date Type Department Care Team (Late st Contact Info) Description 04/24/2025 1:00 PM EDT Office Visit [facility] [address] [facility] 120 [place] [address] Emmanuel Gonzalez, DPJenni 3006 [facility] 5 [place] [address] documented as of this encounter Visit Diagnoses Diagnosis Ischemic toe ulcer, right, with 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)- Primary Chronic diastolic (congestive) heart failure (HCC) Chronic bronchitis, unspecified chronic bronchitis type (HCC) documented in this encounter Additional Health Concerns Assessment Noted Time PHQ-9 Depression Total Score: 0 04/26/20 9:00 AM EDT documented as of this encounter Care Teams Pipe Stress Engineer Relationship Specialty Start Date End Date Nikko Bird MD [address] [facility] 110 [place] [address] PCP - [employer] 08/28/17 Nikko Bird MD [address] [facility] 110 [place] [address] PCP - General Family Medicine 03/09/23 Elaine Saab LPN [address] [facility] 110 [place] [address] 11/15/24 documented as of this encounter
--- OUTSIDE RECORDS SUMMARY | 2025-04-15 12:56 | XMS_ITS | Encounter Summary ---
Author Organization [facility] Address [address] [place] [address] Care Team Providers Care Hip Hop Dancer Name Role Phone Nikko Bird MD Unavailable Nikko Bird MD Primary Care Provider [phone] Elaine Saab LPN Unavailable Encounter Details Date Type Department Care Team (Late st Contact Info) Description 03/20/2025 Abstract [facility] [place] [facility] [address] [facility] 110 [place] [address] Nikko Bird MD [address] [facility] 110 [place] [address] Social History Tobacco Use Types Packs/Day Years [...] Recorded Patient Health Questionnaire-2 Score 0 01/09/2025 [facility] of Occupat ional Health - Occupational Stress [...] any time in the past 12 m [facility], were you homeless or living in [...] Visit [facility] [address] [facility] 120 [place] [address] Emmanuel Gonzalez DPM 3006 [facility] 5 [place] [address] documented as of this encounter Visit Diagnoses Not on filedocumented in this encounter Additional Health Concerns Assessment Noted Time PHQ-9 Depression Total Score: 0 04/26/20 24 9:00 AM EDT documented as of this encounter Care Teams Hip Hop Dancer Relationship Specialty Start Date End Date Nikko Bird MD [address] [facility] 110 [place] [address] PCP - Hum[employer] 08/28/17 Nikko Bird MD [address] [facility] 110 [place] [address] PCP - General Family Medicine 03/09/23 Elaine Saab LPN [address] [facility] 110 [place] [address] 11/15/24 documented as of this encounter
--- OUTSIDE RECORDS SUMMARY | 2025-04-15 12:56 | XMS_ITS | Encounter Summary ---
Author Organization [facility] Address [address] [place] [address] Care Team Providers Care Furnace Hand Name Role Phone Nikko Bird MD Unavailable Nikko Bidr MD Primary Care Provider [phone] Elaine Saab LPN Unavailable Encounter Details Date Type Department Care Team (Latest Contact Info) Description 04/08/2025 Travel Social History Tobacco Use Types Packs/Day [...] Recorded Patient Health Questionnaire-2 Score 0 04/08/2025 [facility]at [facility] - Occupational Stress Questionnaire Answer [...] time in the past 12 m [facility], were you homeless or living in a [...] Not at all 04/08/2025 11:20 AM EDT Jurgen Tubbsa, L PN Patient Health Questionnaire -2 Score 0 04/08/2025 11:20 AM EDT Wendy Tubbs L PN documented as of this encounter Plan of Treatment Upcoming Encounters Date Type Department Care Team ([facility] st Contact Info) Description 04/24/2025 1:00 PM EDT Office Visit [facility] [address] [facility] 120 [place] [address] Emmanuel Gonzalez DPM 3006 [facility] 5 [place] [address] documented as of this encounter Visit Diagnoses Not on filedocumented in this encounter Additional Health Concerns Assessment Noted Time PHQ-9 Depression Total Score: 0 04/26/20 9:00 AM EDT documented as of this encounter Care Teams Furnace Hand Relationship Specialty Start Date End Date Nikko Bird MD [address] [facility] 110 [place] [address] PCP - Hum[employer] 08/28/17 Nikko Bird MD [address] [facility] 110 [place] [address] PCP - General Family Medicine 03/09/23 Elaine Saab LPN [address] [facility] 110 [place] [address] 11/15/24 documented as of this encounter
--- OUTSIDE RECORDS SUMMARY | 2025-04-15 12:56 | XMS_ITS | Encounter Summary ---
Author Organization [facility] Address [address] [place] [address] Care Team Providers Care Heating And Ventilating Drafter Name Role Phone Nikko Bird MD Unavailable Nikko Bird MD Primary Care Provider [phone] Elaine Saab LPN Unavailable Reason for Visit * Reason Comments Med Refill Encounter Details Date Type Department Care Team (Late st Contact Info) Description 04/09/2025 Refill [facility] [place] [facility] [address] [facility] 110 [place] [address] Zoë King PA 112 [facility] 110 [place] [address] Paroxysmal atrial fibrillation (HCC) Social History Tobacco Use Types Packs/Day [...] Recorded Patient Health Questionnaire-2 Score 0 04/08/2025 [facility] - Occupational Stress Questionnaire Answer Date Recorded [...] any time in the past [address] [facility], were you homeless or living in a residential (including now)? No 06/21/2024 Sex and Gender [...] Visit [facility] [address] [facility] 120 [place] [address] Emmanuel Gonzalez DPJenni 3006 [facility] 5 [place] [address] documented as of this encounter Visit Diagnoses Diagnosis Paroxysmal atrial fibrillation (HCC) Atrial fibrillation documented in this encounter Additional Health Concerns Assessment Noted Time PHQ-9 Depression Total Score: 0 04/26/20 24 9:00 AM EDT documented as of this encounter Care Teams Heating And Ventilating Drafter Relationship Specialty Start Date End Date Nikko Bird MD [address] [facility] 110 [place] [address] PCP - [employer] 08/28/17 Nikko Bird MD [address] [facility] 110 [place] [address] PCP - General Family Medicine 03/09/23 Elaine Saab LPN [address] [facility] 110 [place] [address] 11/15/24 documented as of this encounter
--- OUTSIDE RECORDS SUMMARY | 2025-04-15 12:56 | XMS_ITS | Encounter Summary ---
Author Organization [facility] Healthcare Address [address] [place] [address] Care Team Providers Care Bean Picker Machine Operator Name Role Phone Nikko Bird MD Unavailable Nikko Bird MD Primary Care Provider [phone] Elaine Saab LPN Unavailable Encounter Details Date Type Department Care Team (Late st Contact Info) Description 04/14/2025 Patient Outreach [facility] POPULATION [facility] [address] [place] [phone] Elaine Saab LPN [address] [facility] 110 [place] [address] Social History Tobacco Use Types [...] Recorded Patient Health Questionnaire-2 Score 0 04/14/2025 [facility] of Occupat ional Health - Occupational Stress [...] time in the past 12 m [facility], were you homeless or living in a skilled nursing (including now)? No 06/21/2024 Sex and Gender Information Value Date Recorded Sex Assigned at Not on file Legal Sex Male 7:18 PM EDT Gender Identity Not on file Sexual Orientation Not on file documented as of this encounter Progress Notes * Elaine Saab LPN - 04/14/2025 9:20 AM EDT Images from the original note were not included. Spoke with pt for monitoring. Pt has appt this afternoon with PCP. Pt shares he was going to got [facility] ER but since he can get in today he not going. Pt states his toe seems worse. Pt has been putting peroxide and iodine on wound as he was told and he is talking both antibiotics as prescribed. Pt feels it is not getting better and feels it looks worse. Pt has no furthe needs or concerns at this time. Flowsheet Row Patient Outreach from 04/14/2025 in [facility] with Elaine Saab LPN Week Number Call Week 3 Call Was patient contacted successfully? Yes Have you had any urgent care/ED/Hospital visits since discharge? No Any medication changes since last contact? Yes [Augmentin added 04/10 for infection to toe] If yes, medications reconciled this encounter? Yes Is the patient taking all medications as directed? Yes Have you visited your PCP since discharge? Yes Have you visited your specialist since discharge? Yes Does patient have home health? no What is the home health agency? [facility] Has home health visited the patient within 72 hours of discharge? Yes What is the patient's perception of their health status since discharge? Worsening Is the patient/caregiver able to teach back the hierarchy of who to call/visit for symptoms/problems? PCP, Specialist, Home Health nurse, Urgent Care, ED, 911 Yes documented in this encounter Plan of Treatment Upcoming Encounters Date Type Department Care Team (Late st Contact Info) Description 04/24/2025 1:00 PM EDT Office Visit [facility] [address] [place] [address] [place] [address] Emmanuel Gonzalez DPM 3006 [facility] [place] 5 [place] [address] documented as of this encounter Visit Diagnoses Diagnosis Stage 3a chronic kidney disease (CMS-HCC)- Primary Chronic diastolic (congestive) heart failure (HCC) documented in this encounter Additional Health Concerns Assessment Noted Time PHQ-9 Depression Total Score: 0 04/26/20 24 9:00 AM EDT documented as of this encounter Care Teams Bean Picker Machine Operator Relationship Specialty Start Date End Date Nikko Bird MD 112 [facility] 110 [place] [address] PCP - [employer] 08/28/17 Nikko Bird MD 112 [facility] 110 [place] [address] PCP - General Family Medicine 03/09/23 Elaine Saab LPN 112 [facility] 110 [place] [address] 11/15/24 documented as of this encounter
--- OUTSIDE RECORDS SUMMARY | 2025-04-15 12:56 | XMS_ITS | Encounter Summary ---
Author Organization [facility] Address [address] [place] [address] Care Team Providers Care Yard Motor Operator Name Role Phone Nikko Bird MD Unavailable Nikko Bird MD Primary Care Provider [phone] Elaine Saab LPN Unavailable Encounter Details Date Type Department Care Team (Late st Contact Info) Description 03/24/2025 Abstract [facility] [place] [facility] [address] [facility] 110 [place] [address] Nikko Bird MD [address] [email or web address] 110 [place] [address] Social History Tobacco Use Types Packs/Day Years [...] Recorded Patient Health Questionnaire-2 Score 0 01/09/2025 [facility] of Occupat ional Health - Occupational Stress [...] any time in the past 12 m [facility], were you homeless or living in a nursing home (including now)? No 06/21/2024 Sex and Gender [...] Visit [facility] [address] [facility] 120 [place] [phone] Emmanuel Gonzalez DPM 3006 [facility] 5 [place] [address] documented as of this encounter Visit Diagnoses Not on filedocumented in this encounter Additional Health Concerns Assessment Noted Time PHQ-9 Depression Total Score: 0 04/26/20 24 9:00 AM EDT documented as of this encounter Care Teams Yard Motor Operator Relationship Specialty Start Date End Date Nikko Bird MD [address] [facility] [[email or web address] [address] [place] [address] PCP - [employer] 08/28/17 Nikko Bird MD [address] [facility] [[email or web address] [address] [place] [address] PCP - General Family Medicine 03/09/23 Elaine Saab LPN [address] [facility] [[email or web address] [address] [place] [address] 11/15/24 documented as of this encounter
--- OUTSIDE RECORDS SUMMARY | 2025-04-15 12:56 | XMS_ITS | Encounter Summary ---
Author Organization [facility] Address [address] [place] [address] Care Team Providers Care Drop Machine Operator Name Role Phone Nikko Bird MD Unavailable Nikko Bird MD Primary Care Provider [phone] Elaine Saab LPN Unavailable Encounter Details Date Type Department Care Team (Late st Contact Info) Description 04/08/2025 External Result Encounter [facility] External Department Unsolicited Zoë King, PA 112 [facility] 110 [place] [address] Social History Tobacco Use Types Packs/Day Years [...] Recorded Patient Health Questionnaire-2 Score 0 04/08/2025 [facility] of Occupat ional [facility] - Occupational Stress Questionnaire Answer Date [...] time in the past 12 m [facility], were you homeless or living in [...] EDT Office Visit [facility] 112 [facility] 120 [place] [address] Emmanuel Gonzalez DPM 3006 [facility] 5 [place] [address] documented as of this encounter Procedures Procedure Name Priority Date/Time Associated Diagnosis Comments MECA Routine 04/08/2025 12:00 AM EDT HERPES SIMPLEX VIRUS 1 Routine 04/08/2025 12:00 AM EDT documented in this encounter Results * (ABNORMAL) MECA (04/08/2025 12:00 AM EDT) MECA 25.731(A) 23.000 - 31.199 ppm 04/09/2025 1:18 PM EDT [facility] MECA Detected(A) 23.000 - 31.199 ppm 04/09/2025 1:18 PM EDT [facility] TET B, TET M 23.751(A) 23.000 - 27.778 ppm 04/09/2025 1:18 PM EDT [facility] TET B, TET M Detected(A) 23.000 - 27.778 ppm 04/09/2025 1:18 PM EDT [facility] ACINETOBACTER BAUMANNII (ACUTE WOUND) 0 19.961 - 24.689 ppm 04/09/2025 1:19 PM EDT [facility] ACINETOBACTER BAUMANNII (ACUTE WOUND) Not Detected 19.961 - 24.689 ppm 04/09/2025 1:19 PM EDT [facility] BACTEROIDES FRAGILIS, VULGATUS (ACUTE WOUND) 23.270(A) 19.961 - 24.689 ppm 04/09/2025 1:18 PM EDT [facility] BACTEROIDES FRAGILIS, VULGATUS (ACUTE WOUND) Detected(A) 19.961 - 24.689 ppm 04/09/2025 1:18 PM EDT [facility] CITROBACTER FREUNDII (ACUTE WOUND) 0 19.961 - 24.689 ppm 04/09/2025 1:19 PM EDT [facility] CITROBACTER FREUNDII (ACUTE WOUND) Not Detected 19.961 - 24.689 ppm 04/09/2025 1:19 PM EDT [facility] CLOSTRIDIUM PERFRINGENS, NOVYI, SEPTICUM (ACUTE WOUND) 0 19.961 - 24.689 ppm 04/09/2025 1:19 PM EDT [facility] CLOSTRIDIUM PERFRINGENS, NOVYI, SEPTICUM (ACUTE WOUND) Not Detected 19.961 - 24.689 ppm 04/09/2025 1:19 PM EDT [facility] ENTEROBACTER CLOACAE COMPLEX, KLEBSIELLA (ENTEROBACTER) AEROGENES ((A) 0 19.961 - 24.689 ppm 04/09/2025 1:19 PM EDT [facility] ENTEROBACTER CLOACAE COMPLEX, KLEBSIELLA (ENTEROBACTER) AEROGENES ((A) Not Detected 19.961 - 24.689 ppm 04/09/2025 1:19 PM EDT [facility] ENTEROCOCCUS FAECALIS, FAECIUM 0 19.961 - 24.689 ppm 04/09/2025 1:19 PM EDT [facility] ENTEROCOCCUS FAECALIS, FAECIUM Not Detected 19.961 - 24.689 ppm 04/09/2025 1:19 PM EDT [facility] ESCHERICHIA COLI (ACUTE WOUND) 0 19.961 - 24.689 ppm 04/09/2025 1:19 PM EDT [facility] ESCHERICHIA COLI (ACUTE WOUND) Not Detected 19.961 - 24.689 ppm 04/09/2025 1:19 PM EDT [facility] KLEBSIELLA PNEUMONIAE, OXYTOCA (ACUTE WOUND) 0 19.961 - 24.689 ppm 04/09/2025 1:19 PM EDT [facility] KLEBSIELLA PNEUMONIAE, OXYTOCA (ACUTE WOUND) Not Detected 19.961 - 24.689 ppm 04/09/2025 1:19 PM EDT [facility] PROTEUS MIRABILIS, VULGARIS (ACUTE WOUND) 22.966(A) 19.961 - 24.689 ppm 04/09/2025 1:18 PM EDT [facility] PROTEUS MIRABILIS, VULGARIS (ACUTE WOUND) Detected(A) 19.961 - 24.689 ppm 04/09/2025 1:18 PM EDT [facility] PSEUDOMONAS AERUGINOSA (ACUTE WOUND) 0 19.961 - 24.689 ppm 04/09/2025 1:19 PM EDT [facility] PSEUDOMONAS AERUGINOSA (ACUTE WOUND) Not Detected 19.961 - 24.689 ppm 04/09/2025 1:19 PM EDT [facility] SERRATIA MARCESCENS (ACUTE WOUND) 0 19.961 - 24.689 ppm 04/09/2025 1:19 PM EDT [facility] SERRATIA MARCESCENS (ACUTE WOUND) Not Detected 19.961 - 24.689 ppm 04/09/2025 1:19 PM EDT [facility] STAPHYLOCOCCUS AUREUS (ACUTE WOUND) 24.790(A) 19.961 - 24.689 ppm 04/09/2025 1:18 PM EDT [facility] STAPHYLOCOCCUS AUREUS (ACUTE WOUND) Detected(A) 19.961 - 24.689 ppm 04/09/2025 1:18 PM EDT [facility] STREPTOCOCCUS AGALACTIAE (GROUP B STREP) (ACUTE WOUND) 0 19.961 - 24.689 ppm 04/09/2025 1:19 PM EDT [facility] STREPTOCOCCUS AGALACTIAE (GROUP B STREP) (ACUTE WOUND) Not Detected 19.961 - 24.689 ppm 04/09/2025 1:19 PM EDT [facility] STREPTOCOCCUS PYOGENES (GROUP A STREP) (ACUTE WOUND) 0 19.961 - 24.689 ppm 04/09/2025 1:19 PM EDT [facility] STREPTOCOCCUS PYOGENES (GROUP A STREP) (ACUTE WOUND) Not Detected 19.961 - 24.689 ppm 04/09/2025 1:19 PM EDT [facility] VIBRIO CHOLERAE, PARAHAEMOLYTICUS, VULNIFICUS (ACUTE WOUND) 0 23.000 - 31.296 ppm 04/09/2025 1:19 PM EDT [facility] VIBRIO CHOLERAE, PARAHAEMOLYTICUS, VULNIFICUS (ACUTE WOUND) Not Detected 23.000 - 31.296 ppm 04/09/2025 1:19 PM EDT [facility] W[facility] 04/08/2025 04/09/2025 4:1 0 AM EDT us Zoë [facility] BLOOD ORDERABLES Edited Re sult - Final [facility] [address] [place] [address] * HERPES SIMPLEX VIRUS 1 (04/08/2025 12:00 AM EDT) [facility] HERPES SIMPLEX VIRUS 1 0 23.000 - 32.355 ppm 04/09/2025 11:32 AM EDT [facility] HERPES SIMPLEX VIRUS 1 Not Detected 23.000 - 32.355 ppm 04/09/2025 11:32 AM EDT [facility] HERPES SIMPLEX VIRUS 2 0 23.000 - 31.433 ppm 04/09/2025 11:32 AM EDT [facility] HERPES SIMPLEX VIRUS 2 Not Detected 23.000 - 31.433 ppm 04/09/2025 11:32 AM EDT [facility] HUMAN MONKEYPOX VIRUS 0 23.000 - 32.544 ppm 04/09/2025 11:37 AM EDT [facility] HUMAN MONKEYPOX VIRUS Not Detected 23.000 - 32.544 ppm 04/09/2025 11:37 AM EDT [facility] VARICELLA ZOSTER VIRUS (HUMAN HERPESVIRUS 3) 0 23.000 - 31.749 ppm 04/09/2025 11:32 AM EDT [facility] VARICELLA ZOSTER VIRUS (HUMAN HERPESVIRUS 3) Not Detected 23.000 - 31.749 ppm 04/09/2025 11:32 AM EDT [facility] Wound 04/08/2025 04/09/2025 4:1 0 AM EDT us Zoë [facility] BLOOD ORDERABLES Final Res ult [facility] [address] [place] [address] [place] [address] documented in this encounter Visit Diagnoses Not on filedocumented in this encounter Additional Health Concerns Assessment Noted Time PHQ-9 Depression Total Score: 0 04/26/20 24 9:00 AM EDT documented as of this encounter Care Teams Drop Machine Operator Relationship Specialty Start Date End Date Nikko Bird MD [address] [facility] 110 [place] [address] PCP - [employer] 08/28/17 Nikko Bird MD [address] [facility] 110 [place] [address] PCP - General Family Medicine 03/09/23 Elaine Saab LPN 112 [facility] 110 [place] [address] 11/15/24 documented as of this encounter
--- OUTSIDE RECORDS SUMMARY | 2025-04-15 12:56 | XMS_ITS | Encounter Summary ---
Author Organization [facility] Address [address] [place] [address] Care Team Providers Care Registration Manager Name Role Phone Nikko Bird MD Unavailable Nikko Bird MD Primary Care Provider Elaine Saab LPN Unavailable Encounter Details Date Type Department Care Team (Late st Contact Info) Description 03/11/2025 Abstract [facility] [place] [facility] 112 [facility] 110 [place] [phone] Nikko Bird MD [address] [facility] 110 [place] [address] Social History Tobacco Use Types Packs/Day Years [...] Recorded Patient Health Questionnaire-2 Score 0 01/09/2025 [facility] of Occupat ional Health - Occupational Stress [...] any time in the past 12 m [facility], were you homeless or living in a intermediate (including now)? No 06/21/2024 Sex and Gender [...] Visit [facility] [address] [facility] 120 [place] [address] Emmanuel Gonzalez DPM 3006 [facility] 5 [place] [address] documented as of this encounter Visit Diagnoses Not on filedocumented in this encounter Additional Health Concerns Assessment Noted Time PHQ-9 Depression Total Score: 0 04/26/20 24 9:00 AM EDT documented as of this encounter Care Teams Registration Manager Relationship Specialty Start Date End Date Nikko Bird MD [address] [facility] [address] [place] [address] PCP - [employer] 08/28/17 Nikko Bird MD [address] [facility] [address] [place] [address] PCP - General Family Medicine 03/09/23 Elaine Saab LPN [address] [facility] 110 [place] [address] 11/15/24 documented as of this encounter
--- OUTSIDE RECORDS SUMMARY | 2025-04-15 12:56 | XMS_ITS | Encounter Summary ---
Author Organization [facility] Address [address] [place] [address] Care Team Providers Care Loans Consultant Name Role Phone Nikko Bird MD Unavailable Nikko Bird MD Primary Care Provider [phone] Elaine Saab LPN Unavailable Encounter Details Date Type Department Care Team (Late st Contact Info) Description 04/03/2025 Refill [facility] [place] 100 [facility] 112 [facility] 100 [place] [address] Nikko Bird MD 112 [facility] 110 [place] [address] PVD (peripheral vascular disease) with claudication Social History Tobacco Use Types Packs/Day Years [...] Date Recorded Patient Health Questionnaire-2 Score 0 03/31/2025 [facility] of Occupat ional Health - [...] time in the past 12 m [facility], were you homeless or living in a fci (including now)? No 06/21/2024 Sex and Gender Information Value Date Recorded Sex Assigned at Not on file Legal Sex Male 7:18 PM EDT Gender Identity Not on file Sexual Orientation Not on file documented as of this encounter Miscellaneous Notes * Telephone Encounter - Lorraine Valdez MA - 04/03/2025 11:52 AM EDT Pt notified * Telephone Encounter - LEONARDA Villavicencio - 04/03/2025 11:38 AM EDT Ok to let him know that a 30 day supply sent in for him. My guess as to what happened was that he received 15 because he was due for an appointment, then after he was seen, the same quantity was loaded in a refill. Will resume previous 30 day supply dosing. * Telephone Encounter - Rubi Buchanan - 04/03/2025 10:46 AM EDT Tristin called asking to talk to a nurse. He states that when he was in on Monday, Dr. Bird only sent in 15 of his pain meds which only gets him a couple days. He states he doesn't understand why it was only sent for 15 because he usually gets a 30 day supply. He will be out soon and said he does not have enough to get him through the weekend. documented in this encounter Plan of Treatment Upcoming Encounters Date Type Department Care Team (Late st Contact Info) Description 04/24/2025 1:00 PM EDT Office Visit [facility] 112 [facility] 120 [place] [address] Emmanuel Gonzalez, DPJenni [address] [address] documented as of this encounter Visit Diagnoses Diagnosis PVD (peripheral vascular disease) with claudication Unspecified peripheral vascular disease documented in this encounter Additional Health Concerns Assessment Noted Time PHQ-9 Depression Total Score: 0 04/26/20 24 9:00 AM EDT documented as of this encounter Care Teams Loans Consultant Relationship Specialty Start Date End Date Nikko Bird MD 112 [facility] 110 [place] [address] PCP - [employer] 08/28/17 Nikko Bird MD 112 [facility] 110 [place] [address] PCP - General Family Medicine 03/09/23 Elaine Saab LPN 112 [facility] 110 [place] [address] 11/15/24 documented as of this encounter
--- OUTSIDE RECORDS SUMMARY | 2025-04-15 12:56 | XMS_ITS | Encounter Summary ---
Author Organization [facility] Address [address] [place] [address] Care Team Providers Care Monitoring Analyst Name Role Phone Nikko Bird MD Unavailable Nikko Bird MD Primary Care Provider [phone] Elaine Saab LPN Unavailable Encounter Details Date Type Department Care Team (Latest Contact Info) Description 04/15/2025 Travel Social History Tobacco Use Types Packs/Day [...] Recorded Patient Health Questionnaire-2 Score 0 04/14/2025 [facility] of Occupat ional [facility] - Occupational Stress Questionnaire Answer Date [...] Upcoming Encounters Date Type Department Care Team ([facility] st Contact Info) Description 04/24/2025 1:00 PM EDT Office Visit [facility] [address] [facility] 120 [place] [address] Emmanuel Gonzalez, SHIRLEY 3006 [facility] 5 [place] [address] documented as of this encounter Visit Diagnoses Not on filedocumented in this encounter Additional Health Concerns Assessment Noted Time PHQ-9 Depression Total Score: 0 04/26/20 9:00 AM EDT documented as of this encounter Care Teams Monitoring Analyst Relationship Specialty Start Date End Date Nikko Bird MD [address] [facility] [address] [place] [address] PCP - [employer] 08/28/17 Nikko Bird MD [address] [facility] 110 [place] [address] PCP - General Family Medicine 03/09/23 Elaine Saab LPN [address] [facility] 110 [place] [address] 11/15/24 documented as of this encounter
--- OUTSIDE RECORDS SUMMARY | 2025-04-15 12:57 | XMS_ITS | Encounter Summary ---
Author Organization [facility] Address [address] [place] [address] Care Team Providers Care Electric Knife Operator Name Role Phone Nikko Bird MD Unavailable Nikko Bird MD Primary Care Provider [phone] Mary GROOVER AND STRIPER OPERATOR Unavailable [phone] Lorraine Morgan RN Unavailable [phone] Saab, Elaine GROOVER AND STRIPER OPERATOR Unavailable Encounter Details Date Type Department Care Team (Late Contact Info) Description 05/13/2024 Abstract [facility] [place] [facility] [address] [facility] [address] [place] [address] Nikko Bird MD [address] [facility] [address] [place], [place] [address] Social History Tobacco Use Types Packs/Day Years Used Date Smoking Tobacco: Never Alcohol Use Standard Drinks/Week Comments Not Currently 0 (1 standard drink = 0.6 oz pur e alcohol) Coffee 1-2 cups per day PHQ-2 Answer Date Recorded Patient Health Questionnaire-2 Score 0 04/26/2024 Sex and Gender Information Value Date Recorded Sex Assigned at Not on file Legal Sex Male 7:18 PM EDT Gender Identity Not on file Sexual Orientation Not on file documented as of this encounter Plan of Treatment Upcoming Encounters Date Type Department Care Team (Late Contact Info) Description 04/24/2025 1:00 PM EDT Office Visit [facility] [address] [facility] [address] [place] [address] Emmanuel Gonzalez DPM 3006 [facility] 5 [place] [address] documented as of this encounter Visit Diagnoses Not on filedocumented in this encounter Additional Health Concerns Assessment Noted Time PHQ-9 Depression Total Score: 0 04/26/20 24 9:00 AM EDT documented as of this encounter Care Teams Electric Knife Operator Relationship Specialty Start Date End Date Nikko Bird MD [address] [facility] 110 [place] [address] PCP - [employer] 08/28/17 Nikko Bird MD [address] [facility] 110 [place] [address] PCP - General Family Medicine 03/09/23MondayMary LPN [address] [facility] 110 [place] [address] Licensed Practical Nurse Family Medicine 06/21/24 Lorraine Morgan, RN [address] [place] [address] Licensed Practical Nurse Family Medicine 10/04/2411/15 Elaine Saab LPN [address] [facility] 110 [place] [address] 11/15/24 documented as of this encounter
--- OUTSIDE RECORDS SUMMARY | 2025-04-15 12:57 | XMS_ITS | Encounter Summary ---
Author Organization [facility] Address [address] [place] [address] Care Team Providers Care Military Science Instructor Name Role Phone Nikko Bird MD Unavailable Nikko Bird MD Primary Care Provider [phone], Mary MECHANICAL DEVELOPER PROVER Unavailable [phone] Monday, Mary MECHANICAL DEVELOPER PROVER Unavailable [phone] Lorraine Morgan RN Unavailable Elaine Saab MECHANICAL DEVELOPER PROVER Unavailable Encounter Details Date Type Department Care Team (Late st Contact Info) Description 08/14/2023 Abstract [facility] [place] [facility] [address] [facility] 110 [place] [address] Nikko Bird MD [address] [facility] [address] [place] [id number] Social History Tobacco Use Types Packs/Day Years Used Date Smoking Tobacco: Never Alcohol Use Standard Drinks/Week Comments Not Currently 0 (1 standard drink = 0.6 oz pur e alcohol) Coffee 1-2 cups per day PHQ-2 Answer Date Recorded Patient Health Questionnaire-2 Score 0 06/06/2023 Sex and Gender Information Value Date Recorded Sex Assigned at Not on file Legal Sex Male 7:18 PM EDT Gender Identity Not on file Sexual Orientation Not on file documented as of this encounter Plan of Treatment Upcoming Encounters Date Type Department Care Team (Late st Contact Info) Description 04/24/2025 1:00 PM EDT Office Visit [facility] [address] [place] [address] Emmanuel Gonzalez, DPM 3006 [facility] 5 [place] [address] documented as of this encounter Visit Diagnoses Not on filedocumented in this encounter Care Teams Military Science Instructor Relationship Specialty Start Date End Date Nikko Bird MD [address] [place] [address] PCP - Humana 08/28/17 Nikko Bird MD [address] [place] [address] PCP - General Family Medicine 03/09/23MondayMary LPN [address] [place] [address] Licensed Practical Nurse Family Medicine 09/21/2309/21Mary LPN [address] [place] [address] Licensed Practical Nurse Family Medicine 06/21/24 Lorraine Morgan, RN [address] [place] [address] Licensed Practical Nurse Family Medicine 10/04/2411/15 Elaine Saab LPN [address] [place] [address] 11/15/24 documented as of this encounter
--- OUTSIDE RECORDS SUMMARY | 2025-04-15 12:57 | XMS_ITS | Encounter Summary ---
Author Organization [facility] Address [address] [place] [address] Care Team Providers Care Riveting Machine Operator Automatic Name Role Phone Nikko Bird MD Unavailable Nikko Bird MD Primary Care Provider [phone], Mary SECURITY SYSTEMS MANAGER Unavailable [phone] Lorraine Morgan RN Unavailable [phone] Saab, Elaine SECURITY SYSTEMS MANAGER Unavailable Encounter Details Date Type Department Care Team (Late Contact Info) Description 03/25/2024 Abstract [facility] [place] [facility] [address] [place] [address] Nikko Bird MD [address] [place], [place] [id number] Social History Tobacco Use Types Packs/Day Years [...] [facility] P[facility] [address] [place] [address] Emmanuel Gonzalez DPM [address] [facility] 5 [place] [address] documented as of this encounter Visit Diagnoses Not on filedocumented in this encounter Care Teams Riveting Machine Operator Automatic Relationship Specialty Start Date End Date Nikko Bird MD [address] [facility] 110 [place] [address] PCP - Humana 08/28/17 Nikko Bird MD [address] [facility] 110 [place] [address] PCP - General Family Medicine 03/09/23MondayMary LPN [address] [facility] 110 [place] [address] Licensed Practical Nurse Family Medicine 06/21/24 Lorraine Morgan, KULDEEP [address] [place] [address] Licensed Practical Nurse Family Medicine 10/04/2411/15 Elaine Saab LPN [address] [facility] 110 [place] [address] 11/15/24 documented as of this encounter
--- OUTSIDE RECORDS SUMMARY | 2025-04-15 12:57 | XMS_ITS | Encounter Summary ---
Author Organization [facility] Healthcare Address [address] [place] [address] Care Team Providers Care Interior Design Assistant Name Role Phone Nikko Bird MD Unavailable Nikko Bird MD Primary Care Provider [phone] Elaine Saab LPN Unavailable Encounter Details Date Type Department Care Team (Late st Contact Info) Description 04/15/2025 Patient Outreach [facility] POPULATION [facility] [address] [place] [address] Elaine Saab LPN [address] [facility] 110 [place] [address] Social History Tobacco Use Types [...] Recorded Patient Health Questionnaire-2 Score 0 04/14/2025 [facility] of Occupat ional Health - Occupational Stress [...] any time in the past 12 m [facility], were you homeless or living in a long-term (including now)? No 06/21/2024 Sex and Gender Information Value Date Recorded Sex Assigned at Not on file Legal Sex Male 7:18 PM EDT Gender Identity Not on file Sexual Orientation Not on file documented as of this encounter Progress Notes * Elaine Saab LPN - 04/15/2025 12:21 PM EDT Spoke to pt to inform pt of Dr Bird message as follows: Patient does have a bone infection. He willneed to Keep appointment with Dr. Feliz. Is uspect he will need senior care antibiotic. Dr. Feliz will probably do a debridement or partial amputtion. He may benefit from being admitted to a SNF for antibiotics. I go [facility] if that is the route that Dr. Feliz recommends. Pt voices understanding and is on way to Dr. Feliz appt now. Hisappt starts at 1300. documented in this encounter Plan of Treatment Upcoming Encounters Date Type Department Care Team ([facility] st Contact Info) Description 04/24/2025 1:00 PM EDT Office Visit [facility] 112 [facility] 120 [place] [address] Emmanuel Gonzalez DPM 3006 [facility] 5 [place] [address] documented as of this encounter Visit Diagnoses Diagnosis Stage 3a chronic kidney disease (CMS-HCC)- Primary Chronic diastolic (congestive) heart failure (HCC) documented in this encounter Additional Health Concerns Assessment Noted Time PHQ-9 Depression Total Score: 0 04/26/20 24 9:00 AM EDT documented as of this encounter Care Teams Interior Design Assistant Relationship Specialty Start Date End Date Nikko Bird MD 112 [facility] 110 [place] [address] PCP - Humana 08/28/17 Nikko Bird MD [address] [id number] PCP - General Family Medicine 03/09/23 lEaine Saab LPN [address] [address] 11/15/24 documented as of this encounter
--- OUTSIDE RECORDS SUMMARY | 2025-04-15 12:57 | XMS_ITS | Encounter Summary ---
Author Organization [facility] Address [address] [place] [address] Care Team Providers Care Power Distributor Name Role Phone Nikko Bird MD Unavailable Nikko Bird MD Primary Care Provider [phone], Mary RETAIL SUPPORT SPECIALIST Unavailable [phone] Lorraine Morgan RN Unavailable Saab, Elaine RETAIL SUPPORT SPECIALIST Unavailable Encounter Details Date Type Department Care Team (Late Contact Info) Description 05/22/2024 Abstract [facility] [place] [facility] [address] [place] [address] Nikko Bird MD [address] [place], [place] [id number] Social History Tobacco Use Types Packs/Day Years [...] [facility] P[facility] [address] [place] [address] Emmanuel Gonzalez DPM 3006 [facility] 5 [place] [address] documented as of this encounter Visit Diagnoses Not on filedocumented in this encounter Additional Health Concerns Assessment Noted Time PHQ-9 Depression Total Score: 0 04/26/20 24 9:00 AM EDT documented as of this encounter Care Teams Power Distributor Relationship Specialty Start Date End Date Nikko Bird MD [address] [facility] 110 [place] [address] PCP - Humana 08/28/17 Nikko Bird MD [address] [facility] 110 [place] [address] PCP - General Family Medicine 03/09/23MondayMary LPN [address] [facility] 110 [place] [address] Licensed Practical Nurse Family Medicine 06/21/24 Lorraine Morgan, RN [address] [place] [address] Licensed Practical Nurse Family Medicine 10/04/2411/15 Elaine Saab LPN [address] [facility] 110 [place] [address] 11/15/24 documented as of this encounter
--- OUTSIDE RECORDS SUMMARY | 2025-04-15 12:57 | XMS_ITS | Encounter Summary ---
Author Organization [facility] Address [address] [place] [address] Care Team Providers Care Immigration Investigator Name Role Phone Nikko Bird MD Unavailable Nikko Bird MD Primary Care Provider [phone], Mary PEDIATRIC PSYCHOLOGIST Unavailable [phone] Lorraine Morgan RN Unavailable Saab, Elaine PEDIATRIC PSYCHOLOGIST Unavailable Encounter Details Date Type Department Care Team (Late Contact Info) Description 05/01/2024 Abstract [facility] [place] [facility] [address] [place] [address] Nikko Bird MD [address] [place], [place] [id number] Social History Tobacco Use Types Packs/Day Years [...] [facility] P[facility] [address] [place] [address] Emmanuel Gonzalez DPM 3006 [facility] 5 [place] [address] documented as of this encounter Visit Diagnoses Not on filedocumented in this encounter Additional Health Concerns Assessment Noted Time PHQ-9 Depression Total Score: 0 04/26/20 24 9:00 AM EDT documented as of this encounter Care Teams Immigration Investigator Relationship Specialty Start Date End Date Nikko Bird MD [address] [facility] 110 [place] [address] PCP - Humana 08/28/17 Nikko Bird MD [address] [facility] 110 [place] [address] PCP - General Family Medicine 03/09/23MondayMary LPN [address] [facility] 110 [place] [address] Licensed Practical Nurse Family Medicine 06/21/24 Lorraine Morgan, RN [address] [place] [address] Licensed Practical Nurse Family Medicine 10/04/2411/15 Elaine Saab LPN [address] [facility] 110 [place] [address] 11/15/24 documented as of this encounter
--- OUTSIDE RECORDS SUMMARY | 2025-04-15 12:57 | XMS_ITS | Encounter Summary ---
Author Organization [facility] Address [address] [place] [address] Care Team Providers Care Vending Route Driver Name Role Phone Nikko Bird MD Unavailable Nikko Bird MD Primary Care Provider [phone], Mary ICER MACHINE OPERATOR Unavailable [phone] Lorraine Morgan RN Unavailable [phone] Saab, Elaine ICER MACHINE OPERATOR Unavailable Encounter Details Date Type Department Care Team (Late Contact Info) Description 05/13/2024 Abstract [facility] [place] [facility] [address] [place] [address] Nikko Bird MD [address] [place], [place] [id number] Social History Tobacco Use Types Packs/Day Years [...] [facility] [address] [place] [address] Emmanuel Gonzalez DPM 3006 [facility] 5 [place] [address] documented as of this encounter Visit Diagnoses Not on filedocumented in this encounter Additional Health Concerns Assessment Noted Time PHQ-9 Depression Total Score: 0 04/26/20 24 9:00 AM EDT documented as of this encounter Care Teams Vending Route Driver Relationship Specialty Start Date End Date Nikko Bird MD [address] [facility] 110 [place] [address] PCP - Humana 08/28/17 Nikko Bird MD [address] [facility] 110 [place] [address] PCP - General Family Medicine 03/09/23MondayMary LPN [address] [facility] 110 [place] [address] Licensed Practical Nurse Family Medicine 06/21/24 Lorraine Morgan, RN [address] [place] [address] Licensed Practical Nurse Family Medicine 10/04/2411/15 Elaine Saab LPN [address] [facility] 110 [place] [address] 11/15/24 documented as of this encounter
--- OUTSIDE RECORDS SUMMARY | 2025-04-15 12:57 | XMS_ITS | Clinical Summary ---
Author Organization [facility] Address [address] [place] [address] [place] [address] Care Team Providers Care Acupressure Therapist Name Role Phone Nikko Bird MD Primary Care Provider [phone] Allergies No known active allergies Medications metoprolol succinate 50 MG PO tablet XL Take 1 tablet by mouth 2 times daily. Active polyethylene glycol PO PACK take 1 Packet by mouth 2 times daily. 60 Packet 5 09/04/19 12 Active senna 8.6 MG PO TABS take 1 Tab by mouth daily. 30 Tab 5 09/04/19 12 Active gabapentin 100 MG Cap capsule Take 3 capsules by mouth 3 times daily. Active atorvastatin 40 MG Tab tablet Take 1 tablet by mouth 2 times daily. Takes 1/2 tab bid Active Rivaroxaban 20 MG tablet Take 2.5 mg by mouth 2 times daily. Start in 22 days after the 15mg dose is completed Active ASPIRIN 81 PO Take 81 mg by mouth. Active albuterol (2.5 MG/3ML) 0.083% inhalation solution albuterol sulfate 2.5 mg/3 mL (0.083 %) solution for nebulization Active losartan 50 MG tablet Take 0.5 tablets by mouth daily. Active zolpidem 5 MG tablet Take 2 tablets by mouth At bedtime as needed for Sleep. Active docusate 100 MG capsule Take 1 capsule by mouth 2 times daily. 60 capsule 07/15/20 Active Additional Information Patient not taking.Reported on 01/12/2022 therapeutic multivitamin-mine rals tablet Take 1 tablet by mouth at bedtime. 30 tablet 07/15/20 Active omeprazole [address] capsule Take 1 capsule by mouth daily. 30 capsule 07/15/20 Active Additional Information Patient not taking.Reported on 01/12/2022 acetaminophen 325 MG tablet Take 2 tablets by mouth every 4 hours as needed for Mild Pain. 50 tablet 1 07/15/20 Active oxyCODONE 5 MG tabletIndications :Acute postoperative pain of right hip Take 1-2 tabs po q 4-6 hours PRN pain. Wean as tolerated. 40 tablet 07/15/20 Active methylPREDNIsolon e 4 MG Tab Therapy Pack tablet Take 1 tablet by mouth As directed. follow package directions 21 tablet 11/25/19 Active Additional Information Patient not taking.Reported on 01/12/2022 celecoxib 200 MG capsule Take 1 capsule by mouth 2 times daily. 60 capsule 11/25/19 Active Additional Information Patient not taking.Reported on 01/12/2022 Active Problems Problem Noted Date Diagnosed Date Coronary artery disease invo lving ak chin coronary artery of ak chin heart without angina pectoris 07/15/2021 S/P transmetatarsal amputation of foot, left Mixed hyperlipidemia 07/15/2021 Peripheral arterial disease 07/15/2021 S/P total hip arthroplasty 07/15/2021 Obesity: body mass index of 30.0-34.9 08/10/2018 Assessment & Plan (08/30/2018 3:40 PM EST): Diet and lifestyle modifications strongly encouraged Follow up after discharged with PCP for further treatment options Claudication of left lower extremity 08/10/2018 Assessment & Plan (08/10/2018 11:36 AM EST): S/P Left Lower Extremity Angiogram with ballooning and stent 08/09/2018 Post op orders per surgeon DVT/GI prophylaxis Monitor labs, VS and telemetry as ordered Pain management Essential hypertension 08/10/2018 Assessment & Plan (08/30/2018 3:39 PM EST): Resume home medications as ordered Follow up after discharged with PCP Labetalol PRN for SBP> 160 Monitor VS as ordered Assessment & Plan (08/10/2018 11:36 AM EST): Resume home medications as ordered Follow up after discharged with PCP Labetalol PRN for SBP> 160 Monitor VS as ordered Pure hypercholesterolemia 08/10/2018 Assessment & Plan (08/30/2018 3:39 PM EST): Resume home medications Follow up after discharged with PCP Assessment & Plan (08/10/2018 11:37 AM EST): Resume home medications Follow up after discharged with PCP Lipid panel ordered Vascular disease, peripheral 08/10/2018 Assessment & Plan (08/10/2018 11:37 AM EST): S/P angiogram with Dr. Mayen Follow up after discharged as previously scheduled Claudication 08/08/2018 Overview (08/08/2018): Added automatically from request for surgery [id number] Assessment & Plan (08/30/2018 3:38 PM EST): Heparin drip initiated, pharmacy to manage per protocol ASA and Plavix started Cardiovascular surgeon consulted PT/OT evaluation and treatment Monitor labs, VS and telemetry as ordered Pain management Herpes zoster 09/04/2011 Pain of left lower extremity 09/04/2011 Avascular necrosis of bone of hip 09/04/2011 Overview (09/04/2011): Right hip Prostate cancer 09/04/2011 Resolved Problems Problem Noted Date Diagnosed Date Resolved Date Hip pain 09/04/2011 09/04/2011 Family History Medical History Relation Name Comments Prostate Cancer Brother No known problems Daughter Myocardial Infarction Father Coronary Artery Disease Maternal Grandmother Diabetes Mother Myocardial Infarction Mother Coronary Artery Disease Paternal Aunt Coronary Artery Disease Paternal Grandmother Coronary Artery Disease Paternal Uncle No known problems Sister No known problems Son Relation Name Status Comments Brother Daughter Father Maternal Grandmother Mother Paternal Aunt Paternal Grandmother Paternal Uncle Sister Son Social History Tobacco Use Types Packs/Day Years Used Date Smoking Tobacco: Never Smokeless Tobacco: Never Tobacco Cessation:Counseling Given: Not Answered Alcohol Use Standard Drinks/Week Comments No 0 (1 standard drink = 0.6 oz pur e alcohol) Sex and Gender Information Value Date Recorded Sex Assigned at Not on file Legal Sex Male 7:06 PM EST Gender Identity Male 07/16/2018 11:34 AM EST Sexual Orientation Not on file Last Filed Vital Signs Vital Sign Reading Time Taken Comments Blood Pressure 137/62 07/16/2021 12:45 PM EST Pulse 63 07/16/2021 12:45 PM EST Temperature 36.3 C (97.3 F) 07/14/2022 10:48 AM EST Respiratory Rate 16 07/16/2021 12:45 PM EST Oxygen Saturation 96% 07/16/2021 12:45 PM EST Inhaled Oxygen Concentration - - Weight 104.3 kg (230 lb) 08/10/2023 10:52 AM EST Height 188 cm (6' 2 ) 08/10/2023 10:52 AM EST Body Mass Index 29.53 08/10/2023 10:52 AM EST Plan of Treatment Health Maintenance Due Date Last Done Comments COLORECTAL CANCER SCREENING DISCUSSION 01/04/1984 ZOSTER (SHINGLES) VACCINE (1 of 2) 1989 RSV VACCINE (1 - 1-dose 75+ series) 2014 COVID-19 VACCINE ( season) 2024 09/09/2021, 09/09/2021, 10/28/2020, Additional history exists INFLUENZA VACCINE (#1) 2025 3, 05/31/2022, 06/21/2021, Additional history exists TETANUS 09/30/2029 09/30/2019, 09/30/2019 TDAP (ADULT) Completed 09/30/2019, 09/30/2019 PNEUMOCOCCAL VACCINE SERIES Completed 09/28, 05/28/2020, 05/18/2015 HEP B VACCINE Aged Out No longer elig ible based on patient's age to complete this topic Medical Devices Implanted Type Area Brick Loader Device Identifier Shelf Expiration Date Model / Serial / Lot Slemp Altrx Polyethylene Acetabular Liner Neutral 36mm Id 62mm Od Implanted:Qty: 1 on 07/15/2021 by Dashawn Silvestre MD at [employer] [facility] LOC Hip Joint Right: Hip 07/27/2025 / [id number] / [id number] Slemp Gription Acetabular Shell Sector 62mm Od Implanted:Qty: 1 on 07/15/2021 by Dashawn Silvestre MD at [employer] [facility] LOC Hip Joint Right: Hip 09/27/2029 / [id number] / [id number] Biolox Delta Ceramic Femoral Head +1.5 36mm Jaki 12/14 Taper Implanted:Qty: 1 on 07/15/2021 by Dashawn Silvestre MD at [facility] Hip Joint Right: Hip 04/27/2026 / [id number] / [id number] Hominy Femoral Stem 08/10 Taper Size 7 Mi 133mm Implanted:Qty: 1 on 07/15/2021 by Dashawn Silvestre MD at [facility] Hip Joint Right: Hip 10/25/2025 / [id number] / [id number] Cementralizer Stem Centralizer 12.0mm Cemented Implanted:Qty: 1 on 07/15/2021 by Dashawn Silvestre MD at [facility] Hip Joint Right: Hip 09/27/2025 / [id number] / [id number] Smart Flex [id number] - [id number] Implanted:Qty: 1 on 08/09/2018 by Isaias Mayen MD at [facility] LOC Left: Leg [employer] [id number] 03/06/2019 [id number] / / [id number] Smart Flex [id number] - [id number] Implanted:Qty: 1 on 08/09/2018 by Isaisa Mayen MD at [facility] Left: Leg [employer] [id number] 07/24/2019 [id number] / / [id number] Angio-Seal 6f Vip - [id number] Implanted:Qty: 1 on 08/09/2018 by Isaias Mayen MD at [facility] LOC Right: Groin [facility] [id number] 11/25/2018 [id number] / / [id number] Palacos R 1 X 40 Us - [id number] Implanted:Qty: 1 on 07/15/2021 by Dashawn Silvestre MD at [facility] LOC Right: Hip / / [id number] Palacos Lv 1x40 Single - [id number] Implanted:Qty: 2 on 07/15/2021 by Dashawn Silvestre MD at [facility] LOC Right: Hip H[employer] [id number] / / [id number] Insurance Medicare [employer] HMO PPO Advance Directives For more information, please contact: [phone] (7:30 AM - 6PM [facility], Monday-Monday) * Full Code (Latest Code Status on File) Date Activated Date Inactivated Comments 07/15/2021 2:40 PM * Full Code Date Activated Date Inactivated Comments 09/03/2018 11:29 AM 07/15/2021 2:40 PM * Full Code Date Activated Date Inactivated Comments 09/01/2011 7:48 AM 09/04/2011 4:13 PM Care Teams Acupressure Therapist Relationship Specialty Start Date End Date Nikko Bird MD [address] [place] [address] PCP - General Family Medicine 07/31/18
--- OUTSIDE RECORDS SUMMARY | 2025-04-15 12:57 | XMS_ITS | Encounter Summary ---
Author Organization [facility] Address [address] [place] [address] Care Team Providers Care Radial Router Operator Name Role Phone Nikko Lovelace MD Unavailable Nikko Lovelace MD Primary Care Provider [phone] Monday, Mary WRIGHTN Unavailable [phone] Lorraine Morgan RN Unavailable [phone] Elaine Saab DIRECTOR OF STRATEGY & MOBILE Unavailable Encounter Details Date Type Department Care Team (Late st Contact Info) Description 07/11/2024 Clinisync Result Encounter [facility] External Department Unsolicited Provider, Generic External Data Social History Tobacco Use Types Packs/Day Years [...] Recorded Patient Health Questionnaire-2 Score 0 04/26/2024 [facility] [...] any time in the past [address] [facility], were you homeless or living in a [...] EDT Office Visit [facility] [address] [facility] 120 [place] [address] Emmanuel Gonzalez DPM [address] [facility] 5 [place] [address] documented as of this encounter Procedures Procedure Name Priority Date/Time Associated Diagnosis Comments CARD ECHO LIMITED STUDY 07/11/2024 9:20 PM EST C-REACTIVE PROTEIN, CARDIAC Routine 07/11/2024 1:27 PM EST documented in this encounter Results * CARD ECHO LIMITED STUDY (07/11/2024 9:20 PM EST) Anatomical Region Laterality Modality Radiographic Leticia ging 07/11/2024 9:20 PM EST Narrative 07/11/2024 9:22 PM EST The [address] [address] Cardiology Report Signed Patient: REJI POWELL MR#: [id number] : 1940 Acct:[id number] Age/Sex: 84 / M ADM Date: 07/11/24 Loc: LAB Attending Dr: RUSSEL ALBERTS APRN Ordering Physician: RUSSEL ALBERTS APRN Date of Service: 07/11/24 Procedure(s): CA echo limited Accession Number(s): [id number] cc: NIKKO LOVELACE ; RUSSEL ALBERTS APRN Patient Name: REJI POWELL MR#: [id number] : 1940 Exam Date: 07/11/2024 Ordering Doctor: RUSSEL ALBERTS EDITOR DEPARTMENT ECHOCARDIOGRAM REPORT PROCEDURE: CA ECHO LIMITED INDICATIONS: Chest pain, pericarditis, cardiac stents, CABGx3, hypertension, COPD COMPARISON: None. DESCRIPTION: Limited ECHOCARDIOGRAM Real-time transthoracic echocardiography with 2D and M-mode performed. QUALITY: Technical quality was adequate. Limited echocardiogram per physician order. LEFT VENTRICLE: Normal chamber size. Normal left ventricular wall thickness. Systolic function is at the lower limits of normal. LV EF: Lower limits of normal left ventricular ejection fraction, (50-55%). DIASTOLIC: ATRIAL SEPTUM: LEFT ATRIUM: Severe dilatation. RIGHT ATRIUM: Severe dilatation. RIGHT VENTRICLE: Mild dilatation. Normal systolic function. TRICUSPID VALVE: Normal mobility and thickness. MITRAL VALVE: Normal mobility and thickness. Mildly calcified tip of anterior mitral leaflet AORTIC VALVE: Normal trileaflet appearance. Mildly calcified aortic valve. Normal leaflet mobility. AORTIC ROOT: Aortic root is moderately dilated (4.5 cm). Ascending aorta is mildly dilated (3.9 cm). PULMONIC VALVE: Normal thickness and mobility. PERICARDIUM: No evidence of pericardial effusion. IVC: IVC is dilated (2.2 cm), does not full collapse. PLEURA: CONCLUSION: 1. Normal left ventricular size. Systolic function is at the lower limits of normal. LVEF is estimated at 50 to 55%. 2. Mildly dilated right ventricle with normal systolic function. 3. Severe biatrial dilatation. 4. Moderately dilated aortic root and mildly dilated ascending aorta. 5. No pericardial effusion. Adult Echocardiography Procedure Report Left Ventricle LVEDD (3.7 - 5.6 cm): 4.86 cm LVESD (2.2 - 4.0 cm): 3.71 cm LVIVS thickness (0.6 - 1.2 cm): 1.11 cm LVPW thickness (0.5 - 1.0 cm): 1.08 cm LVOT Diameter 2.53 cm Left Atrium LA Volume Index (2D A2C): 46.87 ml/m2 Left Atrium Systolic Dimension: 4.54 cm Mitral Valve Right Ventricle Aorta AO Root Diam: 4.51 cm Ascending Ao Diam: 3.87 cm Aortic Valve Tricuspid Valve Pulmonic Valve Right Atrium Right Atrium Systolic Pressure: 94.58 ml, 94.58 ml Dictated by: Mohamud Juarez M.D. on 07/11/2024 at 21:17 Approved by: Mohamud Juarez M.D. on 07/11/2024 at 21:20 Dictated By: MOHAMUD JUAREZ Signed By: 07/11/242121 DD/ 19 TD/TT: Science Intern: Procedure Note Radiology, Radiologist, - 07/11/2024 [place] [address] Cardiology Report Signed Patient: REJI POWELLMR#: [id number] : 9Acct:[id number] Age/Sex: 84 / MADM Date: 07/11/24 Loc: LAB Attending Dr: RUSSEL ALBERTS APRN Ordering Physician: RUSSEL ALBERTS APRN Date of Service: 07/11/24 Procedure(s): CA echo limited Accession Number(s): [id number] cc: NIKKO LOVELACE ; RUSSEL ALBERTS APRN Patient Name: REJI POWELL MR#: [id number] : 1940 Exam Date: 07/11/2024 Ordering Doctor: RUSSEL ALBERTS EDITOR DEPARTMENT ECHOCARDIOGRAM REPORT PROCEDURE: CA ECHO LIMITED INDICATIONS: Chest pain, pericarditis, cardiac stents, CABGx3, hypertension, COPD COMPARISON: None. DESCRIPTION: Limited ECHOCARDIOGRAM Real-time transthoracic echocardiography with 2D and M-mode performed. QUALITY: Technical quality was adequate. Limited echocardiogram per physician order. LEFT VENTRICLE: Normal chamber size. Normal left ventricular wall thickness. Systolic function is at the lower limits of normal. LV EF: Lower limits of normal left ventricular ejection fraction, (50-55%). DIASTOLIC: ATRIAL SEPTUM: LEFT ATRIUM: Severe dilatation. RIGHT ATRIUM: Severe dilatation. RIGHT VENTRICLE: Mild dilatation. Normal systolic function. TRICUSPID VALVE: Normal mobility and thickness. MITRAL VALVE: Normal mobility and thickness. Mildly calcified tip of anterior mitral leaflet AORTIC VALVE: Normal trileaflet appearance. Mildly calcified aorticvalve. Normal leaflet mobility. AORTIC ROOT: Aortic root is moderately dilated (4.5 cm). Ascendingaorta is mildly dilated (3.9 cm). PULMONIC VALVE: Normal thickness and mobility. PERICARDIUM: No evidence of pericardial effusion. IVC: IVC is dilated (2.2 cm), does not full collapse. PLEURA: CONCLUSION: 1. Normal left ventricular size. Systolic function is at the lower limitsof normal. LVEF is estimated at 50 to 55%. 2. Mildly dilated right ventricle with normal systolic function. 3. Severe biatrial dilatation. 4. Moderately dilated aortic root and mildly dilated ascending aorta. 5. No pericardial effusion. Adult Echocardiography Procedure Report Left Ventricle LVEDD (3.7 - 5.6 cm): 4.86 cm LVESD (2.2 - 4.0 cm): 3.71 cm LVIVS thickness (0.6 - 1.2 cm): 1.11 cm LVPW thickness (0.5 - 1.0 cm): 1.08 cm LVOT Diameter 2.53 cm Left Atrium LA Volume Index (2D A2C): 46.87 ml/m2 Left Atrium Systolic Dimension: 4.54 cm Mitral Valve Right Ventricle Aorta AO Root Diam: 4.51 cm Ascending Ao Diam: 3.87 cm Aortic Valve Tricuspid Valve Pulmonic Valve Right Atrium Right Atrium Systolic Pressure: 94.58 ml, 94.58 ml Dictated by: Mohamud Juarez M.D. on 07/11/2024 at 21:17 Approved by: Mohamud Juarez M.D. on 07/11/2024 at 21:20 Dictated By: MOHAMUD JUAREZ Signed By:07/11/242121 DD/ 19 TD/TT: Science Intern: Generic External Data Provider IMG XR PROCEDURES Final Result * (ABNORMAL) C-REACTIVE PROTEIN, CARDIAC (07/11/2024 1:27 PM EST) C-REACTIVE PROTEIN, CARDIAC 9.50(A) 0.00 - 3.00 mg/L [facility] Comment: Relative Risk for Future Cardiovascular Event Low <1.00 Average 1.00 - 3.00 High >3.00 Performed at: [address] [id number] [employer] Supervisor: Jasper Jean Baptiste PhD, Phone: [phone] 07/11/2024 1:27 PM EST 07/11/2024 1:29 PM EST Narrative [facility] - 07/12/2024 4:07 AM EST us Generic External Data Provider LAB BLOOD ORDERAB LES Final Result [facility] documented in this encounter Visit Diagnoses Not on filedocumented in this encounter Additional Health Concerns Assessment Noted Time PHQ-9 Depression Total Score: 0 04/26/20 9:00 AM EDT documented as of this encounter Care Teams Radial Router Operator Relationship Specialty Start Date End Date Nikko Lovelace MD [address] [facility] 110 [place] [address] PCP - [employer] 08/28/17 Nikko Lovelace MD [address] [facility] 110 [place] [address] PCP - General Family Medicine 03/09/23MondayMary LPN [address] [facility] 110 [place] [address] Licensed Practical Nurse Family Medicine 06/21/24 Lorraine Morgan, RN [address] [place] [address] Licensed Practical Nurse Family Medicine 10/04/2411/15 Elaine Saab LPN [address] [facility] 110 [place] [address] 11/15/24 documented as of this encounter
--- OUTSIDE RECORDS SUMMARY | 2025-04-15 12:57 | XMS_ITS | Encounter Summary ---
Author Organization [facility] Address [address] [place] [address] Care Team Providers Care Tire Mold Tester Name Role Phone Nikko Bird MD Unavailable Nikko Bird MD Primary Care Provider [phone], Mary CHANGE MANAGEMENT SPECIALIST Unavailable [phone] Lorraine Morgan RN Unavailable Saab, Elaine CHANGE MANAGEMENT SPECIALIST Unavailable Encounter Details Date Type Department Care Team (Late Contact Info) Description 05/13/2024 Abstract [facility] [place] [facility] [address] [place] [address] Nikko Bird MD [address] [place], [place] [id number] Social History Tobacco Use Types Packs/Day Years [...] CI PODIATRY [address] [place] [address] Emmanuel Gonzalez DPM [facility] 5 [place] [address] documented as of this encounter Visit Diagnoses Not on filedocumented in this encounter Additional Health Concerns Assessment Noted Time PHQ-9 Depression Total Score: 0 04/26/20 24 9:00 AM EDT documented as of this encounter Care Teams Tire Mold Tester Relationship Specialty Start Date End Date Nikko Bird MD [address] [facility] 110 [place] [address] PCP - [employer] 08/28/17 Nikko Bird MD [address] [facility] 110 [place] [address] PCP - General Family Medicine 03/09/23MondayMary LPN [address] [facility] 110 [place] [address] Licensed Practical Nurse Family Medicine 06/21/24 Lorraine Morgan, RN [address] [place] [address] Licensed Practical Nurse Family Medicine 10/04/2411/15 Elaine Saab LPN [address] [facility] 110 [place] [address] 11/15/24 documented as of this encounter
--- OUTSIDE RECORDS SUMMARY | 2025-04-15 12:57 | XMS_ITS | Encounter Summary ---
Author Organization [facility] Address [address] [place] [address] Care Team Providers Care Inventory Associate And Driver Name Role Phone Nikko Bird MD Unavailable Nikko Bird MD Primary Care Provider [phone], Mary WRIGHTN Unavailable [phone] Monday, Mary SEMICONDUCTOR PACKAGES TESTER Unavailable [phone] Lorraine Morgan RN Unavailable Elaine Saab SEMICONDUCTOR PACKAGES TESTER Unavailable Encounter Details Date Type Department Care Team (Late st Contact Info) Description 06/14/2023 Abstract [facility] [place] [facility] [address] [facility] 110 [place] [address] Nikko Bird MD [address] [facility] 110 [place] [address] Social History Tobacco Use Types Packs/Day Years [...] [facility] [address] [place] [address] Emmanuel Gonzalez, DPJenni [address] [facility] 5 [place] [address] documented as of this encounter Visit Diagnoses Not on filedocumented in this encounter Care Teams Inventory Associate And Driver Relationship Specialty Start Date End Date Nikko Bird MD [address] [place] [address] PCP - [employer] 08/28/17 Nikko Bird MD [address] [place] [address] PCP - General Family Medicine 03/09/23MondayMary LPN [address] [place] [address] Licensed Practical Nurse Family Medicine 09/21/2309/21Mary LPN [address] [place] [address] Licensed Practical Nurse Family Medicine 06/21/24 Lorraine Morgan, RN [address] [place] [address] Licensed Practical Nurse Family Medicine 10/04/2411/15 Elaine Saab LPN [address] [place] [address] 11/15/24 documented as of this encounter
--- OUTSIDE RECORDS SUMMARY | 2025-04-15 12:57 | XMS_ITS | Clinical Summary ---
Author Organization [facility] Address [address] [facility] [place] [address] Care Team Providers Care Demand Manager Name Role Phone Nikko Bird MD Primary Care Provider [phone] Allergies No known active allergies Medications aspirin 81 MG EC tablet Take 1 tablet by mouth daily Active rivaroxaban (XARELTO) 2.5 MG TABS tablet Take 1 tablet by mouth 2 times daily Active losartan (COZAAR) 50 MG tablet Take 1 tablet by mouth daily Active atorvastatin (LIPITOR) 40 MG tablet Take 1 tablet by mouth daily Active oxyCODONE (ROXICODONE) 5 MG immediate release tablet Take 1 tablet by mouth every 4 hours as needed for Pain. Active omeprazole (PRILOSEC) 20 MG delayed release capsule Take 1 capsule by mouth daily Active albuterol (PROVENTIL) (2.5 MG/3ML) 0.083% nebulizer solution Take 3 mLs by nebulization every 6 hours as needed for Wheezing Active metoprolol succinate (TOPROL XL) 50 MG extended release tablet Take 1 tablet by mouth in the morning and at bedtime Active fluticasone (FLONASE) 50 MCG/ACT nasal spray 2 sprays by Each Nostril route daily 16 g 3 4 Active isosorbide mononitrate (IMDUR) 30 MG extended release tablet Take 1 tablet by mouth daily 30 tablet 3 4 Active Active Problems Problem Noted Date Diagnosed Date Chest pain in adult 05/13/2024 Arteriosclerosis of coronary artery 05/13/2024 Overview (05/13/2024): Dr. Cee [place], saw for clearance Triple bypass, 2017 [facility] Secondary hypercoagulable state 05/13/2024 Paroxysmal atrial fibrillation 05/13/2024 Chronic kidney disease due to hypertension 04/09 PVD (peripheral vascular disease) with claudicat ion 04/09/2023 Overview (05/13/2024): Last Assessment & Plan: Patient is complaining of worsening symptoms and has had 2 Vascular surgeons Coronary artery disease invo lving coronary bypass graft of benton heart without angina pectoris 09/05/2018 Overview (05/13/2024): Last Assessment & Plan: Patient with remote coronary artery bypass grafting to 3 vessels. Patient denies chest pain at this time. Peripheral arterial disease 08/10/2018 Overview (05/13/2024): Last Assessment & Plan: S/P angiogram with Dr. Mayen Follow up after discharged as previously scheduled Last Assessment & Plan: S/p L fem-peroneal (GSV) bypass per Dr. Millan in 2019 in the setting of CLI. S/p L TMA shortly thereafter which successfully healed. Established with Dr. Millan for ongoing surveillance of bypass graft. R YAMILE in March 2022 was known to be reduced (0.5) Atherosclerosis of coronary artery 08/30/2013 Benign essential hypertension 07/04/2008 Overview (05/13/2024): Last Assessment & Plan: Our specific goals, for your hypertension, is to keep your blood pressure less than 140/90, and the importance of weight control. We made recommendations on how to control your blood pressure, and minimize your risk of these copmplications. We also discussed your current barriers to a healthy living and importance of healthy diet and exercise. Prior to your visit today we have reviewed your chart and formed a plan to assist with providing you the best possible care. We reviewed the possible complications of hypertension including, stroke, heart failure and kidney impairment. In addition, we discussed your medications, the importance of taking them as prescribed. DASH diet handouts Social History Tobacco Use Types Packs/Day Years Used Date Smoking Tobacco: Never Smokeless Tobacco: Never Tobacco Cessation:Counseling Given: Not Answered Alcohol Use Standard Drinks/Week Comments Not Currently 0 (1 standard drink = 0.6 oz pur e alcohol) [facility] Utilities Answer Date Recorded In the past 12 months has th e electric, gas, oil, or water company threatened to shut off services in your home? No 05/13/2024 AUDIT-C Answer Date Recorded Q1: How often do you have a drink containing alcohol? Never 05/13/2024 Q2: How many drinks containi ng alcohol do you have on a typical day when you are drinking? Patient does not drink Q3: How often do you have si x or more drinks on one occasion? Never 05/13/2024 Hunger Vital Sign Answer Date Recorded Within the past 12 months, y ou worried that your food would run out before you got the money to buy more. Never true 05/13/20 24 Within the past 12 months, t he food you bought just didn't last and you didn't have money to get more. Never true 05/13/2024 PRAPARE - Transportation Answer Date Re corded In the past 12 months, has l ack of transportation kept you from medical appointments or from getting medications? No 04/28 In the past 12 months, has l ack of transportation kept you from meetings, work, or from getting things needed for daily living? No 05/13/2024 Housing Stability Vital Sign Answer Michael e Recorded In the last 12 months, was t here a time when you were not able to pay the mortgage or rent on time? No 05/13/2024 In the past 12 months, how m any times have you moved where you were living? 1 05/13/2024 At any time in the past 12 m [facility], were you homeless or living in a prison (including now)? No 05/13/2024 Food Insecurity Answer Date Recorded Within the past 12 months, y ou worried that your food would run out before you got the money to buy more. 1 05/13/2024 Within the past 12 months, t he food you bought just didn't last and you didn't have money to get more. 1 05/13/2024 Interpersonal Safety Domain Source: IP Abuse Scr eening Answer Date Recorded Physical abuse Denies 05/13/2024 Verbal abuse Denies 05/13/2024 Emotional abuse Denies 05/13/2024 Financial abuse Denies 05/13/2024 Sexual abuse Denies 05/13/2024 Sex and Gender Information Value Date Recorded Sex Assigned at Not on file Legal Sex Male 2:47 PM EST Gender Identity Not on file Sexual Orientation Not on file Last Filed Vital Signs Vital Sign Reading Time Taken Comments Blood Pressure 127/54 05/14/2024 8:46 AM EDT Pulse 69 05/14/2024 6:45 AM EDT Temperature 36.2 C (97.2 F) 05/14/2024 6:45 AM EDT Respiratory Rate 17 05/14/2024 6:45 AM EDT Oxygen Saturation 94% 05/14/2024 6:45 AM EDT Inhaled Oxygen Concentration - - Weight 107.5 kg (236 lb 15.9 oz) 05/14/2024 5:30 AM EDT Height 188 cm (6' 2.02 ) 05/13/2024 10: 33 AM EDT Body Mass Index 30.42 05/13/2024 10:33 AM EDT Plan of Treatment Health Maintenance Due Date Last Done Comments Depression Screen 1951 Prostate Specific Antigen (PSA) Screening or Monitoring 1979 Shingles vaccine (1 of 2) 1989 Respiratory Syncytial Virus (RSV) or age 60 yrs+ (1 - 1-dose 75+ series) 2014 COVID-19 Vaccine ( season) 2024 09/09/2021, 10/28/2020, 09/30/2020 Annual Wellness Visit (Medicare Advantage) 08/28/2024 Flu vaccine (#1) 03/28/2025 06/06/2023, 11/2021, 06/21/2021, Additional history exists Lipids 05/14/2025 05/14/2024 DTaP/Tdap/Td vaccine (2 - Td or Tdap) 09/30/2029 09/30/2019 Pneumococcal 50+ years Vaccine Completed 10/08/2020, 05/28/2020, 05/18/2015 Hepatitis A vaccine Aged Out No longe r eligible based on patient's age to complete this topic Hepatitis B vaccine Aged Out No longe r eligible based on patient's age to complete this topic Hib vaccine Aged Out No longer eligi ble based on patient's age to complete this topic Meningococcal (ACWY) vaccine Aged Out No longer eligible based on patient's age to complete this topic Meningococcal B vaccine Aged Out No l onger eligible based on patient's age to complete this topic Polio vaccine Aged Out No longer elig ible based on patient's age to complete this topic Procedures Procedure Name Priority Date/Time Associated Diagnosis Comments LIPID PANEL Routine 05/14/2024 6:13 AM EDT from Last 3 Months or Most Recently Relevant to Health Maintenance Results * Lipid Panel (05/14/2024 6:13 AM EDT) Cholesterol, Total 131 0 - 199 mg/dL 05/14/2024 6:13 AM EDT [facility] Comment: Cholesterol Guidelines: <200 Desirable 200-240 Borderline >240 Undesirable HDL 41 >40 mg/dL 05/14/2024 6:13 AM EDT [facility] Comment: HDL Guidelines: <40 Undesirable 40-59 Borderline >59 Desirable LDL Cholesterol 73 0 - 100 mg/dL 05/14/2024 6:13 AM EDT [facility] Comment: LDL Guidelines: <100 Desirable 100-129 Near to/above Desirable 130-159 Borderline >159 Undesirable Direct (measured) LDL and calculated LDL are not interchangeable tests. Chol/HDL Ratio 3.0 05/14/2024 6:13 AM EDT [facility] Triglycerides 85 <150 mg/dL 05/14/2024 6:13 AM EDT [facility] Comment: Triglyceride Guidelines: <150 Desirable 150-199 Borderline 200-499 High >499 Very high Based on AHA Guidelines for fasting triglyceride, May 2012. VLDL 17 mg/dL 05/14/2024 6:13 AM EDT [facility] Blood BLOOD SPECIMEN / Unknown 05/14/2024 6:13 AM EDT 05/14/2024 6:29 AM EDT us Danica Bang VP CONSTRUCTION - GYMNASTICS INSTRUCTOR CHEMISTRY ORDERABLES Fi nal Result [facility] [address] [place] [address], [facility] [phone] [facility] [place] [address], [facility] [phone] from Last 3 Months or Most Recently Relevant to Health Maintenance Insurance MEDICARE MEDICARE MEDICARE Advance Directives * Full Code (Latest Code Status on File) Date Activated Date Inactivated Comments 05/13/2024 1:14 AM 05/14/2024 5:07 PM Healthcare Agents on File Name Relationship Healthcare Agent [facility] p Communication Mckenzie Gray Child Primary Decision Maker Care Teams Demand Manager Relationship Specialty Start Date End Date Nikko Bird MD PCP - General 08/15/13
--- OUTSIDE RECORDS SUMMARY | 2025-04-15 12:57 | XMS_ITS | Encounter Summary ---
Author Organization [facility] Address [address] [place] [address] Care Team Providers Care Claim Processor Name Role Phone Nikko Bird MD Unavailable Nikko Bird MD Primary Care Provider [phone], Mary CERTIFIED SKI PATROLLER Unavailable [phone] Lorraine Morgan RN Unavailable Saab, Elaine CERTIFIED SKI PATROLLER Unavailable Encounter Details Date Type Department Care Team (Late Contact Info) Description 11/07/2023 Abstract [facility] [place] [facility] [address] [place] [address] Nikko Bird MD [address] [place], [place] [id number] Social History Tobacco Use Types Packs/Day Years [...] [facility] P[facility]AT[facility] [address] [place] [address] Emmanuel Gonzalez, TIFFANYM [address] [facility] 5 [place] [address] documented as of this encounter Visit Diagnoses Not on filedocumented in this encounter Care Teams Claim Processor Relationship Specialty Start Date End Date Nikko Bird MD [address] [facility] 110 [place] [address] PCP - [employer] 08/28/17 Nikko Bird MD [address] [facility] [address] [place] [address] PCP - General Family Medicine 03/09/23MondayMary LPN [address] [facility] 110 [place] [address] Licensed Practical Nurse Family Medicine 06/21/24 Lorraine Morgan, KULDEEP [address] [place] [address] Licensed Practical Nurse Family Medicine 10/04/2411/15 Elaine Saab LPN [address] [facility] 110 [place] [address] 11/15/24 documented as of this encounter
--- OUTSIDE RECORDS SUMMARY | 2025-04-15 12:57 | XMS_ITS | Encounter Summary ---
Author Organization [facility] Address [address] [place] [address] Care Team Providers Care Larry Car Operator Name Role Phone Nikko Bird MD Primary Care Provider [phone] System, Provider Not In Unavailable Unavaila ble Encounter Details Date Type Department Care Team (Latest Contact Info) Description 04/02/2025 Travel Social History Tobacco Use Types Packs/Day Years Used Date Smoking Tobacco: Never Smokeless Tobacco: Never Alcohol Use Standard Drinks/Week Comments Not Currently 0 (1 standard drink = 0.6 oz pur e alcohol) [facility] Utilities Answer Date Recorded In the past 12 months has e electric, gas, oil, or water company [...] any time in the past 12 m [facility], were you homeless or living in a assisted (including now)? No 03/14/2025 Sex and Gender Information Value Date Recorded Sex Assigned at Not on file Legal Sex Male 2:37 PM EDT Gender Identity Male 09/04/2018 8:23 PM EST Sexual Orientation Straight 09/04/2018 8: 23 PM EST documented as of this encounter Plan of Treatment Upcoming Encounters Date Type Department Care Team (Late st Contact Info) Description 04/23/2025 1:00 PM EDT Appointment [facility] [address] [place] [address] Gracy Millan MD [address] [place] [phone] 04/23/2025 2:00 PM EDT Appointment [facility] [address] [place] [place] [address] Gracy Millan MD [facility] [address] 04/23/2025 3:15 PM EDT Follow-Up [facility] [address] [place] [phone] Gracy Millan MD [address] [place] [address] documented as of this encounter Visit Diagnoses Not on filedocumented in this encounter Additional Health Concerns Assessment Noted Time PHQ-2 Depression Total Score: 0 03/15/20 25 8:30 PM EDT documented as of this encounter Care Teams Larry Car Operator Relationship Specialty Start Date End Date Nikko Bird MD [address] [place] [address] PCP - General Family Medicine 09/04/18 System, Provider Not In Sandblaster Paint Sprayer 11/09/22 documented as of this encounter
--- OUTSIDE RECORDS SUMMARY | 2025-04-15 12:57 | XMS_ITS | Encounter Summary ---
Author Organization [facility] Address [address] [place] [address] Care Team Providers Care Fill Manager Name Role Phone Nikko Bird MD Unavailable Nikko Bird MD Primary Care Provider [phone] Elaine Saab LPN Unavailable Encounter Details Date Type Department Care Team (Late st Contact Info) Description 04/15/2025 Results Follow-Up [facility] [address] [facility] [address] [place] [phone] Nikko Bird MD [address] [facility] [address] [place] [address] MR galindo right wo IV contrast Social History Tobacco Use Types Packs/Day Years [...] Recorded Patient Health Questionnaire-2 Score 0 04/14/2025 [facility] - Occupational Stress Questionnaire Answer Date Recorded [...] any time in the past 12 m [facility], were you homeless or living in a [place] health care facility (including now)? No 06/21/2024 Sex and Gender Information Value Date Recorded Sex Assigned at Not on file Legal Sex Male 7:18 PM EDT Gender Identity Not on file Sexual Orientation Not on file documented as of this encounter Miscellaneous Notes * Telephone Encounter - Mya Marley LPN - 04/15/2025 11:27 AM EDT ----- Message from Dr. Nikko Bird sent at 04/15/2025 10:51 AM EDT ----- Patient does have a bone infection. He will need to Keep appointment with Dr. Feliz. Is uspecthe will need group home antibiotic. Dr. Feliz will probably do a debridement or partial amputtion. He may benefit from being admitted to a SNF for antibiotics. I go to [facility] if that is the route that Dr. Feliz recommends ----- Message ----- From: Interface, Incoming Img Psone Background Sent: 04/15/2025 10:00 AM EDT To: Nikko Bird MD documented in this encounter Plan of Treatment Upcoming Encounters Date Type Department Care Team ([facility] st Contact Info) Description 04/24/2025 1:00 PM EDT Office Visit [facility] [address] [facility] [address] [place] [address] Emmanuel Gonzalez DPM [address] [facility] 5 [place] [address] documented as of this encounter Visit Diagnoses Not on filedocumented in this encounter Additional Health Concerns Assessment Noted Time PHQ-9 Depression Total Score: 0 04/26/20 9:00 AM EDT documented as of this encounter Care Teams Fill Manager Relationship Specialty Start Date End Date Nikko Bird MD [address] [facility] [address] [place] [address] PCP - [employer] 08/28/17 Nikko Bird MD [address] [facility] [address] [place] [address] PCP - General Family Medicine 03/09/23 Elaine Saab LPN [address] [facility] [address] [place] [address] 11/15/24 documented as of this encounter
--- OUTSIDE RECORDS SUMMARY | 2025-04-15 12:57 | XMS_ITS | Encounter Summary ---
Author Organization [facility] Address [address] [place] [address] Care Team Providers Care Roofing Foreman Name Role Phone Nikko Bird MD Unavailable Nikko Bird MD Primary Care Provider [phone] Mary WRIGHTN Unavailable [phone] Lorraine Morgan RN Unavailable [phone] Saab, Elaine GOVERNMENT RELATIONS DIRECTOR Unavailable Encounter Details Date Type Department Care Team (Late st Contact Info) Description 07/29/2024 Abstract [facility] [place] [facility] [address] [facility] 110 [place] [phone] Nikko Bird MD [address] [facility] 110 [place] [address] Social History Tobacco Use Types Packs/Day Years [...] Recorded Patient Health Questionnaire-2 Score 0 04/26/2024 [facility] - Occupational [...] any time in the past 12 m [facility], were you homeless or living [...] [facility] [address] [place] [phone] Emmanuel Gonzalez DPM [address] [facility] 5 [place] [address] documented as of this encounter Visit Diagnoses Not on filedocumented in this encounter Additional Health Concerns Assessment Noted Time PHQ-9 Depression Total Score: 0 04/26/20 9:00 AM EDT documented as of this encounter Care Teams Roofing Foreman Relationship Specialty Start Date End Date Nikko Bird MD [address] [place] [address] PCP - [employer] 08/28/17 Nikko Bird MD [address] [place] [address] PCP - General Family Medicine 03/09/23MondayMary LPN [address] [place] [address] Licensed Practical Nurse Family Medicine 06/21/24 Lorraine Morgan, KULDEEP [address] [place] [address] Licensed Practical Nurse Family Medicine 10/04/2411/15 Elaine Saab LPN [address] [facility] 110 [place] [address] 11/15/24 documented as of this encounter
--- OUTSIDE RECORDS SUMMARY | 2025-04-15 12:57 | XMS_ITS ---
Author Organization [facility] Address [address] [place] [address] Care Team Providers Care Chip Tester Name Role Phone Nikko Bird MD Unavailable Nikko Bird MD Primary Care Provider [phone] Elaine Saab LPN Unavailable Chronic Care Management (CCM) Status:Enrolled (Active) Start date:06/21/2024 Enrollment date:06/21/2024 Enrollment reason:Identified using hospital discharge data Overview 06/21/24, 9:45 AM - Marymonday, NETWORK PLANNER- Patient gives verbal consent to be enrolled in CCM Program and understands there could be a bill for this service. Case Team Name Relationship Phone Elaine Saab LPN(Responsible Staff) [phone] Continued Care and Services Coordination
--- OUTSIDE RECORDS SUMMARY | 2025-04-15 12:57 | XMS_ITS | Clinical Summary ---
Author Organization [facility] Healthcare Address [address] [place] [address] Care Team Providers Care Inspector Boiler Name Role Phone Nikko Bird MD Unavailable Nikko Bird MD Primary Care Provider [phone] Elaine Saab LPN Unavailable Allergies Active Allergy Reactions Criticality Noted Date Comments Doxycycline Unknown 04/09/2023 Gabapentin GI intolerance 03/14/2025 Medications ipratropium-albu terol (Duo-Neb) 0.5-2.5 mg/3 mL nebulizer solution Take 3 mL by nebulization in the morning and 3 mL in the evening and 3 mL before bedtime. 023 Active aspirin 81 MG EC tablet Take 81 mg by mouth in the morning. Active Menthol-Zinc Oxide (Calmoseptine) 0.44-20.6 % ointmentIndicati ons: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HCC) Apply 1 Application topically every 6 (six) hours if needed (Barrier Cream) 100 g 3 024 Active metoprolol tartrate (Lopressor) 50 MG tabletIndication s:Benign essential hypertension Take 1 tablet (50 mg) by mouth in the morning and 1 tablet (50 mg) before bedtime. 180 tablet 3 024 2024 Active losartan (Cozaar) 50 MG tabletIndication s:Benign essential hypertension Take 1 tablet (50 mg) by mouth Daily 100 tablet 3 024 Active atorvastatin (Lipitor) 80 MG tablet 024 Active furosemide (Lasix) 20 MG tabletIndication s:Benign essential hypertension TAKE 1 TABLET EVERY MORNING 90 tablet 3 025 Active fluticasone (Flonase) 50 MCG/ACT nasal sprayIndications :Seasonal allergic rhinitis due to pollen Administer 1 spray into each nostril Daily Shake gently. Before first use, prime pump. After use, clean tip and replace cap. 48 g 3 025 Active Azelastine HCl 137 MCG/SPRAY solutionIndicati ons:Seasonal allergic rhinitis due to pollen Administer 1 spray into affected nostril(s) in the morning and 1 spray before bedtime. Do all this for 14 days. 90 mL 3 025 Active albuterol HFA 90 mcg/act inhalerIndicatio ns:Sinusitis, unspecified chronicity, unspecified location Inhale 1 puff every 4 (four) hours if needed for wheezing or shortness of breath 76.5 Unspecified 3 025 Active omeprazole (PriLOSEC) [address] capsuleIndicatio ns:Heartburn TAKE 1 CAPSULE EVERY DAY 90 capsule 3 025 Active zolpidem (Ambien) 10 MG tabletIndication s:Primary insomnia Take 1 tablet (10 mg) by mouth as needed at bedtime for sleep 30 tablet 5 025 Active nitroglycerin (Nitrostat) 0.4 MG SL tabletIndication s:PVD (peripheral vascular disease) with claudication Place 1 tablet (0.4 mg) under the tongue every 5 (five) minutes if needed for chest pain 90 tablet 1 025 Active tamsulosin (Flomax) 0.4 MG 24 hr capsuleIndicatio ns:History of prostate cancer,Urinary hesitancy Take 1 capsule (0.4 mg) by mouth in the morning and 1 capsule (0.4 mg) before bedtime. 200 capsule 025 2024 Active oxyCODONE-acetam inophen (Percocet) 5-325 MG tabletIndication s:PVD (peripheral vascular disease) with claudication Take 1 tablet by mouth every 6 (six) hours if needed for severe pain or moderate pain 120 tablet 025 2024 Active sulfamethoxazole -trimethoprim (Bactrim DS) 800-160 MG per tabletIndication s:Ischemic toe ulcer, right, with 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) Take 1 tablet by mouth in the morning and 1 tablet before bedtime. Do all this for 7 days. 14 tablet 025 2024 Active rivaroxaban (Xarelto) 2.5 MG tabletIndication s:Paroxysmal atrial fibrillation (HCC) TAKE 1 TABLET TWICE DAILY 180 tablet 3 Active amoxicillin-clav ulanate (Augmentin) 875-125 MG tabletIndication s:Ischemic toe ulcer, right, with 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) Take 1 tablet (875 mg) by mouth in the morning and 1 tablet (875 mg) in the evening. Take with meals. Do all this for 7 days. 14 tablet 025 2024 Active nitroglycerin (Nitrostat) 0.[address] 0.4 mg under the tongue every 5 (five) minutes if needed for chest pain. 023 2024 Discontinued( Reorder) montelukast (Singulair) 10 MG tabletIndication s:Seasonal allergic rhinitis due to pollen Take 1 tablet (10 mg) by mouth at bedtime 30 tablet 11 024 2024 Discontinued( Other) rivaroxaban (Xarelto) 2.5 MG tabletIndication s:Paroxysmal atrial fibrillation (HCC) TAKE 1 TABLET TWICE DAILY 200 tablet 3 025 2024 Discontinued tamsulosin (Flomax) 0.4 MG 24 hr capsuleIndicatio ns:History of prostate cancer,Urinary hesitancy TAKE 1 CAPSULE BY MOUTH DAILY 30 capsule 1 025 2024 Discontinued( Reorder) oxyCODONE-acetam inophen (Percocet) 5-325 MG tablet Take 1 tablet by mouth every 6 (six) hours if needed for severe pain or moderate pain 2024 Discontinued( Reorder) ondansetron ODT (Zofran-ODT) 4 MG disintegrating tabletIndication s:Nausea and vomiting, unspecified vomiting type Take 1 tablet (4 mg) by mouth every 8 (eight) hours if needed for nausea or vomiting for up to 7 days 20 tablet 025 2024 oxyCODONE-acetam inophen (Percocet) 5-325 MG tabletIndication s:PVD (peripheral vascular disease) with claudication Take 1 tablet by mouth every 6 (six) hours if needed for severe pain or moderate pain 15 tablet 025 2024 Discontinued( Reorder) oxyCODONE-acetam inophen (Percocet) 5-325 MG tabletIndication s:PVD (peripheral vascular disease) with claudication Take 1 tablet by mouth every 6 (six) hours if needed for severe pain or moderate pain 15 tablet 025 2024 Discontinued( Reorder) Active Problems Problem Noted Date Diagnosed Date Ischemic toe ulcer, right, with fat layer expose d 04/14/2025 Assessment & Plan (04/14/2025 1:37 PM EDT): Needs to finish antibiotic and needs follow up with podiatry Osteomyelitis of right foot 04/14/2025 Assessment & Plan (04/14/2025 1:45 PM EDT): Will get stat MRI Will do stat Podiatry referral If worsens go to ER Currently no drainage Carotid stenosis, asymptomatic, bilateral 2024 Unspecified chronic bronchitis 11/04/2024 Acquired absence of left foot 11/04/2024 Assessment & Plan (11/04/2024 11:22 AM EDT): Has prosthesis 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 11/04/2024 Bronchiectasis, uncomplicated 11/04/2024 Assessment & Plan (11/04/2024 11:25 AM EDT): stable Acquired absence of left leg below knee 07/22/20 24 Assessment & Plan (11/04/2024 11:23 AM EDT): S/p amputation with prosthesis Other complications of amputation stump 07/22/20 24 Assessment & Plan (11/04/2024 11:22 AM EDT): resolved Hx of CABG 05/28/2024 Secondary hypercoagulable state ([facility]) 09/16/ 2024 Pulmonary hypertension, unspecified 04/26/2024 Assessment & Plan (11/04/2024 11:25 AM EDT): Has water pills From COPD Other thrombophilia ([facility]) 03/21/2024 Assessment & Plan (03/21/2024 3:10 PM EDT): Has blood thinner AAA (abdominal aortic aneurysm) 04/09/2023 Assessment & Plan (04/11/2023 11:31 AM EDT): Sees Cardiology Has follow up with cardiology and do 6 month regular US Abnormal radiographic examination 04/09/2023 Chronic obstructive pulmonary disease, unspecifi ed 04/09/2023 Assessment & Plan (11/04/2024 11:25 AM EDT): From second hand smoke Chronic diastolic (congestive) heart failure Assessment & Plan (11/04/2024 11:25 AM EDT): Foot swells Arthritis 04/09/2023 Asthmatic bronchitis 04/09/2023 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 Patient will continue to be required to be seen in our office at least every three months for monitoring. At each follow up visit I will reassess the patient's need for the medication. Patient is to have this medication prescribed only through this office. Failure to follow the rules and regulations will result in tapering and discontinuation of medications if applicable. Patient verbalized understanding. OARRS Report was reviewed for this patient. Paresthesia of skin 04/09/2023 Paroxysmal atrial fibrillation 04/09/2023 PVD (peripheral vascular disease) with claudicat ion 04/09/2023 Assessment & Plan (04/14/2025 1:37 PM EDT): Needs follow up with Vascular surgeon Assessment & Plan (03/31/2025 1:43 PM EDT): Medication choice and dosage is appropriate for patient's current medical conditions. Patient will continue to be required to be seen in our office at least every three months for monitoring. At each follow up visit I will reassess the patient's need for the medication. Patient is to have this medication prescribed only through this office. Failure to follow the rules and regulations will result in tapering and discontinuation of medications if applicable. Patient verbalized understanding. OARRS Report was reviewed for this patient. Assessment & Plan (09/19/2023 10:52 AM EST): Patient is complaining of worsening symptoms and has had 2 Vascular surgeons Assessment & Plan (06/06/2023 11:21 AM EDT): Sees vascular surgeon Still with coldness. Phantom limb syndrome with pain 04/09/2023 Assessment & Plan (11/04/2024 11:27 AM EDT): Medication choice and dosage is appropriate for patient's current medical conditions. Patient will continue to be required to be seen in our office at least every three months for monitoring. At each follow up visit I will reassess the patient's need for the medication. Patient is to have this medication prescribed only through this office. Failure to follow the rules and regulations will result in tapering and discontinuation of medications if applicable. Patient verbalized understanding. OARRS Report was reviewed for this patient. Assessment & Plan (08/12/2024 1:42 PM EST): Pain meds effective Polymyalgia rheumatica ([facility]) 04/09/2023 Primary osteoarthritis of right hip 04/09/2023 Seasonal allergic rhinitis 04/09/2023 Assessment & Plan (11/04/2024 11:23 AM EDT): Shelli Reyes Claritin Assessment & Plan (03/21/2024 3:09 PM EDT): D/W patient risks and benefits of steroid injection. Dimpling at site of injection, Increased sugars potentially if Diabetic, Avascular necrosis. Patient has had in past with no adverse reaction. Answered all questions about steroid shot. Assessment & Plan (02/05/2024 3:02 PM EDT): I discussed with patient that while on prednisone, do not take any NSAIDs like Ibuprofen, Naprosyn, Alleve or motrin. Watch for any side effects like abdominal pain and nausea. Take the prednisone with food or milk. Prednisone may increase appetite. While on prednisone, watch for any sugar elevations. Solitary pulmonary nodule 04/09/2023 Stage 3a chronic kidney disease 04/09/2023 Acquired absence of unspecified foot 04/09/2023 Assessment & Plan (11/04/2024 11:22 AM EDT): S/p amputation but has prosthesis Assessment & Plan (02/05/2024 3:03 PM EDT): Sees Vascular doctor this summer in March01/19/2023 Lumbosacral spondylosis without myelopathy 01/19 Assessment & Plan (04/11/2023 11:31 AM EDT): Medication choice and dosage is appropriate for patient's current medical conditions. Patient will continue to be required to be seen in our office at least every three months for monitoring. At each follow up visit I will reassess the patient's need for the medication. Patient is to have this medication prescribed only through this office. Failure to follow the rules and regulations will result in tapering and discontinuation of medications if applicable. Patient verbalized understanding. OARRS Report was reviewed for this patient. Mitral valve regurgitation 11/21/2022 Snoring 11/21/2022 Posterior tibial tendinitis of right leg 03/13/2 023 Thoracic aortic aneurysm without rupture 022 S/P total hip arthroplasty 07/15/2021 Aortic valve regurgitation 01/01/2021 Class 1 obesity with body ma ss index (BMI) of 31.0 to 31.9 in adult 09/05/2018 Overview (06/05/2023): Last Assessment & Plan: Patient with BMI greater than 30. Plan: Patient with BMI >30. According to the NIH and USPSTF, it is recommended that the patient lose weight utilizing a combination of dietary (reduction in calories of 500 to 1,000 kcal/day) and behavioral therapies, in addition to increasing physical activity (30 to 45 minutes for 3 to 5 days per week) for a goal BMI <30. Last Assessment & Plan: Patient with BMI greater than 30. Plan: Patient with BMI >30. According to the NIH and USPSTF, it is recommended that the patient lose weight utilizing a combination of dietary (reduction in calories of 500 to 1,000 kcal/day) and behavioral therapies, in addition to increasing physical activity (30 to 45 minutes for 3 to 5 days per week) for a goal BMI <30. Atherosclerosis of cheesh-na ar teries of extremities with rest pain, unspecified extremity 09/04/2018 Overview (06/05/2023): Last Assessment & Plan: Pt s/p LLE angiogram with Dr Hahn who feels that the pt has no further endovascular options. He has consulted Dr. Millan for a possible tibial bypass. Pt s/p LLE critical limb ischemia Deann class 4 rest pain with distal discoloration to his toes. Pt is s/p L pop angioplasty with stent placement 08/09 at [facility] in [place], [place]. Pt was placed on Xarelto and ASA. Pt represented to that hospiral 08/30 with increased LLE pain. On exam pt has palpable bilateral femoral pulses and popliteal pulses. Unable to obtain by doppler BLE R or L DP/PT pulses. LLE is discolored *see images in this note. Plan: Continue heparin at this time Continue Rooke boot to left lower extremity. Continue ASA, Plavix and high intensity statin medication. Will sign off Last Assessment & Plan: Pt s/p LLE angiogram with Dr Hahn who feels that the pt has no further endovascular options. He has consulted Dr. Millan for a possible tibial bypass. Pt s/p LLE critical limb ischemia Deann class 4 rest pain with distal discoloration to his toes. Pt is s/p L pop angioplasty with stent placement 08/09 at [facility] in [place], [place]. Pt was placed on Xarelto and ASA. Pt represented to that hospiral 08/30 with increased LLE pain. On exam pt has palpable bilateral femoral pulses and popliteal pulses. Unable to obtain by doppler BLE R or L DP/PT pulses. LLE is discolored *see images in this note. Plan: Continue heparin at this time Continue Rooke boot to left lower extremity. Continue ASA, Plavix and high intensity statin medication. Will sign off Assessment & Plan (11/04/2024 11:29 AM EDT): Sees Specialist in 6 months Has known blockage in right and is holding off as long as possible Claudication of right lower extremity 08/08/2018 Overview (06/05/2023): Added automatically from request for surgery [id number] Last Assessment & Plan: Heparin drip initiated, pharmacy to manage per protocol ASA and Plavix started Cardiovascular surgeon consulted PT/OT evaluation and treatment Monitor labs, VS and telemetry as ordered Pain management Last Assessment & Plan: S/P Left Lower Extremity Angiogram with ballooning and stent 08/09/2018 Post op orders per surgeon DVT/GI prophylaxis Monitor labs, VS and telemetry as ordered Pain management Added automatically from request for surgery [id number] Last Assessment & Plan: Heparin drip initiated, pharmacy to manage per protocol ASA and Plavix started Cardiovascular surgeon consulted PT/OT evaluation and treatment Monitor labs, VS and telemetry as ordered Pain management Last Assessment & Plan: S/P Left Lower Extremity Angiogram with ballooning and stent 08/09/2018 Post op orders per surgeon DVT/GI prophylaxis Monitor labs, VS and telemetry as ordered Pain management Orthopnea 03/31/2016 Disorder of lipid metabolism 11/21/2013 Heartburn 09/10/2013 Chest pain in adult 08/30/2013 Mixed hyperlipidemia 08/30/2013 Dyspnea 08/30/2013 Preinfarction syndrome 08/30/2013 Malignant neoplasm of prostate 01/19/2011 Assessment & Plan (11/04/2024 11:24 AM EDT): No longer sees urology. S/p seeds implant in 2009 Assessment & Plan (03/21/2024 3:10 PM EDT): Seen in November by Urologist and released from Care Benign essential hypertension 07/04/2008 Assessment & Plan (03/21/2024 3:04 PM EDT): Our specific goals, for your hypertension, is [...] taking them as prescribed. DASH diet handouts Assessment & Plan (09/19/2023 10:45 AM EST): Our specific goals, for your hypertension, is [...] the importance of taking them as prescribed. [employer] handouts Assessment & Plan (06/06/2023 11:20 AM EDT): Our specific goals, for your hypertension, is [...] the importance of taking them as prescribed. [employer] handouts Assessment & Plan (04/11/2023 11:30 AM EDT): Our specific goals, for your hypertension, is [...] the importance of taking them as prescribed. [employer] handouts Chronic ischemic heart disease 07/04/2008 Impotence of organic origin 07/04/2008 Resolved Problems Problem Noted Date Diagnosed Date Resolved Date Acute cystitis without hematuria 03/21/2024 04/26/2024 Assessment & Plan (03/21/2024 3:09 PM EDT): Add Probiotic to help replenish the good bacteria that are destroyed by the Antibiotics Florastor Florajen Align or try Activia in Yogurt Probiotics reduce the risk of antibiotic induced diarrhea Flu vaccine need 06/06/2023 04/26/2024 Routine general medical exam ination at health care facility 06/06/2023 04/26/2024 Assessment & Plan (06/06/2023 11:10 AM EDT): Colonoscopy every 10 years or Cologuard every 3 years ages 50-75 Flu Vaccine yearly Pneumovax and Prevnar Mammo yearly for women and PSA yearly for men Labs/Screening yearly to rule out Diabetes, Chronic Kidney disease and liver disease Hepatitis Screen forat risk populations Shingles vaccine after 65 if indicated Tetanus Vaccine every 10 years Lipids yearly under the age of 75 If Smoking history: one time CT scan of chest and Ultrasound of Aorta to screen for Anuerysm Nausea 06/06/2023 04/26/2024 Acute exacerbation of chroni c obstructive pulmonary disease 04/09/2023 04/26/2024 Cataract 04/09/2023 04/26/2024 Constipation 04/09/2023 04/26/2024 Pneumonia of both lungs due to infectious organism 04/09/2023 04/26/2024 Sinusitis 04/09/2023 04/26/2024 Assessment & Plan (09/19/2023 10:53 AM EST): I discussed with patient that while on prednisone, do not take any NSAIDs like Ibuprofen, Naprosyn, Alleve or motrin. Watch for any side effects like abdominal pain and nausea. Take the prednisone with food or milk. Prednisone may increase appetite. While on prednisone, watch for any sugar elevations. Inguinal pain 11/21/2022 04/26/2024 Hematoma of arm, left, initial encounter 11/04/2022 04/26/2024 Overview (06/05/2023): Last Assessment & Plan: 82 yo RHD male with left upper arm hematoma - will D/W Dr. Mackenzie - XR reviewed; negative for fracture or dislocation - VSS. Afebrile. WBC 8.06 / CRP 35.4 / ESR 30 - suspect hematoma in setting of xarelto. Biceps tendon appears intact - compartments soft and compressible. No indication for surgical intervention - recommend supportive care with rest, ice, compression, elevation as able - WBAT/ROMAT LUE - follow up with PCP or Dr. Messina as needed if symptoms persist Last Assessment & Plan: 82 yo RHD male with left upper arm hematoma - will D/W Dr. Mackenzie - XR reviewed; negative for fracture or dislocation - VSS. Afebrile. WBC 8.06 / CRP 35.4 / ESR 30 - suspect hematoma in setting of xarelto. Biceps tendon appears intact - compartments soft and compressible. No indication for surgical intervention - recommend supportive care with rest, ice, compression, elevation as able - WBAT/ROMAT LUE - follow up with PCP or Dr. Messina as needed if symptoms persist Cellulitis 01/18/2022 04/26/2024 Gangrene of left foot 10/04/20182023 Hypercholesteremia 09/05/2018 4 Overview (06/05/2023): Last Assessment & Plan: Patient with history of hypercholesteremia. Plan: Continue high intensity statin medication Risk factor modification. Last Assessment & Plan: Patient with history of hypercholesteremia. Plan: Continue high intensity statin medication Risk factor modification. Assessment & Plan (06/06/2023 11:11 AM EDT): This is a chronic medical condition that is stable since last assessment. No changes in treatment are suggested at this time. Our specific goals, for your hypertension, is [...] taking them as prescribed. DASH diet handouts Obesity (BMI 30.0-34.9) 08/10/201803/30 Overview (06/05/2023): Last Assessment & Plan: Diet and lifestyle modifications strongly encouraged Follow up after discharged with PCP for further treatment options Last Assessment & Plan: Diet and lifestyle modifications strongly encouraged Follow up after discharged with PCP for further treatment options Pure hypercholesterolemia 08/10/2018 Overview (06/05/2023): Last Assessment & Plan: Resume home medications Follow up after discharged with PCP Last Assessment & Plan: Resume home medications Follow up after discharged with PCP Contusion 07/15/2014 04/26/2024 Abdominal pain 07/11/2014 04/26/2024 Avascular necrosis of bone of hip 09/04/2011 04/26/2024 Overview (06/05/2023): Right hip Right hip Herpes zoster 09/04/2011 04/26/2024 Pain of left lower extremity 09/04/2011 04/26/2024 Overview (06/05/2023): Last Assessment & Plan: -Presented to [facility] 09/04/2018 as a transfer from [place] for second opinion regarding left lower extremity pain and discoloration that was present two days prior to admit there on 08/30. s/p LLE angio with stent placement 08/09 -NARx reviewed, patient prescribed Gabapentin 200 mg TID (last filled #540 tabs for 90 days 07/12/18) and Percocet 5/325 mg (#28 tabs for 7 days 08/23/18) written by Dr. Nikko Bird -Patient found lying in bed, writhing in pain -Reports pain is uncontrolled with PATCH FINISHER Dilaudid pump, and pain does not decrease even after he presses his button -Bypass Peroneal femoral, right saphenous vein harvest, completion angiogram on right planned for today (09/07/18) with Dr. Millan, still pending -Discontinue IV Dilaudid- pt feels this is not controlling his pain -Will start Ketamine drip- Start at 0.1mg/kg/hr. Please note that this is an opiate-sparing, sub anesthetic protocol. Protocol can run up to 5-7 days, but improved symptom control can be seen with much shorter use. Titrations are not to be made for a minimum of 24 hours after initiation with maximum upward titration of 0.3 mg/kg/hr after day 3. Low sub anesthetic doses of Ketamine can help produce analgesia and modulate central sensitization, hyperalgesia and opioid tolerance. Of note, Ketamine does not need to be weaned. It can be discontinued on day of discharge or 7 days after initiation, whichever comes first -Start Oxycodone 5-10 mg Q3H PRN for now, and for 24 hours following surgery -would reduce frequency to Q4H PRN thereafter -Increase Gabapentin from 300 mg BID to 400 mg TID -Will consider adding Movantik for opioid induced constipation, if needed -Discussed realistic expectations and goals. Being pain free is unlikely during this acute post op period -Will continue to follow and make adjustments as needed -Discussed with paradise Fernandez RN -Please call with questions Last Assessment & Plan: -Presented to [facility] 09/04/2018 as a transfer from [place] for second opinion regarding left lower extremity pain and discoloration that was present two days prior to admit there on 08/30. s/p LLE angio with stent placement 08/09 -NARx reviewed, patient prescribed Gabapentin 200 mg TID (last filled #540 tabs for 90 days 07/12/18) and Percocet 5/325 mg (#28 tabs for 7 days 08/23/18) written by Dr. Nikko Bird -Patient found lying in bed, writhing in pain -Reports pain is uncontrolled with PATCH FINISHER Dilaudid pump, and pain does not decrease even after he presses his button - Bypass Peroneal femoral, right saphenous vein harvest, completion angiogram on right planned for today (09/07/18) with Dr. Millan, still pending -Discontinue IV Dilaudid- pt feels this is not controlling his pain -Will start Ketamine drip- Start at 0.1mg/kg/hr. Please note that this is an opiate-sparing, sub anesthetic protocol. Protocol can run up to 5-7 days, but improved symptom control can be seen with much shorter use. Titrations are not to be made for a minimum of 24 hours after initiation with maximum upward titration of 0.3 mg/kg/hr after day 3. Low sub anesthetic doses of Ketamine can help produce analgesia and modulate central sensitization, hyperalgesia and opioid tolerance. Of note, Ketamine does not need to be weaned. It can be discontinued on day of discharge or 7 days after initiation, whichever comes first -Start Oxycodone 5-10 mg Q3H PRN for now, and for 24 hours following surgery - would reduce frequency to Q4H PRN thereafter -Increase Gabapentin from 300 mg BID to 400 mg TID -Will consider adding Movantik for opioid induced constipation, if needed -Discussed realistic expectations and goals. Being pain free is unlikely during this acute post op period -Will continue to follow and make adjustments as needed -Discussed with paradise Fernandez RN -Please call with questions Encounters Date Type Department Care Team Description 04/15/2025 8:00 AM EDT Ancillary Procedure [facility] [address] [place] [address] Osteomyelitis of right foot, unspecified type (HCC) 04/15/2025 Patient Outreach [facility] [address] [place] [address] Elaine Saab LPN 04/15/2025 Results Follow-Up [facility] [address] [place] [id number] Nikko Bird MD MR foot right wo IV contrast 04/15/2025 Travel 04/14/2025 1:30 PM EDT Office Visit [facility] [address] [place] [address] Nikko Bird MD PVD (peripheral vascular disease) with claudication (Primary Dx); Ischemic toe ulcer, right, with 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); Osteomyelitis of right foot, unspecified type (HCC) 04/14/2025 Travel 04/14/2025 Patient Outreach [facility] [address] [place] [address] Elaine Saab LPN 04/10/2025 Abstract [facility] [address] [facility] [address] [place] [address] Emmanuel Gonzalez DPM 04/10/2025 Telephone [facility] [address] [facility] [address] [place] [address] Zoë King PA posible med interaction 04/10/2025 Abstract [facility] [address] [facility] [address] [place] [address] Nikko Bird MD 04/09/2025 Abstract [facility] [address] [facility] [address] [place] [address] Nikko Bird MD 04/09/2025 Telephone [facility] Luis [facility] [address] [facility] [address] [place] [address] Zoë King PA 04/09/2025 Refill [facility] [address] [facility] [address] [place] [address] Zoë King PA Paroxysmal atrial fibrillation (HCC) 04/08/2025 11:30 AM EDT Office Visit [facility] Luis [facility] [address] [facility] [address] [place] [address] Zoë King PA PVD (peripheral vascular disease) with claudication (Primary Dx); Acquired absence of left foot (HCC); Ischemic toe ulcer, right, with 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) 04/08/2025 External Result Encounter [facility] External Department Unsolicited Zoë King PA 04/08/2025 Abstract [facility] [address] [facility] [address] [place] [address] Nikko Bird MD 04/08/2025 Bamboo flowsheet [facility] [address] [place] [address] Zoë King PA 04/08/2025 Travel 04/07/2025 [facility] [address] [place] [address] Elaine Saab LPN 04/03/2025 Refill [facility] [address] [facility] [address] [place] [address] Nikko Bird MD PVD (peripheral vascular disease) with claudication 03/31/2025 1:45 PM EDT Office Visit [facility] Luis [facility] [address] [facility] [address] [place] [address] Nikko Bird MD PVD (peripheral vascular disease) with claudication; History of prostate cancer; Urinary hesitancy 03/31/2025 Travel 03/31/2025 Patient Outreach [facility] [address] [place] [address] Elaine Saab LPN 03/24/2025 Telephone [facility] [address] [place] [address] Elaine Saab LPN 03/24/2025 [facility] [address] [place] [address] Elaine Saab LPN 03/24/2025 [facility] [address] [facility] [address] [place] [address] Nikko Bird MD 03/20/2025 [facility] [address] [facility] [address] [place] [address] Nikko Bird MD 03/17/2025 Abstract [facility] [address] [facility] [address] [place] [address] Nikko Bird MD 03/12/2025 Abstract [facility] [address] [place] [address] Nikko Bird MD 03/11/2025 Abstract [facility] [address] [place] [address] Nikko Bird MD 03/06/2025 Refill [facility] [address] [facility] [address] [place] [address] Mary Wilson, PROGRAM HOST History of prostate cancer; Urinary hesitancy 02/13/2025 Refill [facility] [address] [facility] [address] [place] [address] Nikko Bird MD Primary insomnia; Other chronic pain; Lumbosacral spondylosis without myelopathy 01/16/2025 Telephone [facility] [address] [facility] [address] [place] [address] Nikko Bird MD 01/15/2025 Refill [facility] [address] [facility] [address] [place] [address] Nikko Bird MD Heartburn from Last 3 Months Immunizations Immunization Administration Dates Next Due Influenza, High Dose Seasona l, Preservative Free 06/21/2021,06/02/2020,06/06/2018,05/18 Influenza, High-dose Seasona l, Quadrivalent, Preservative Free 08/12/2024,06/06/2023,05/31/2022,06/06 Influenza, injectable, quadrivalent 05/22/2017 Influenza, injectable, quadr ivalent, preservative free 07/11/2016 Influenza, seasonal, injectable 05/28/2020 Influenza, trivalent, adjuvanted 06/18/2019 Pneumococcal Conjugate PCV 13 05/28/2020, 015 Pneumococcal Polysaccharide PPSV23 10/08/2020 Tdap 09/30/2019 Family History Medical History Relation Name Comments Stroke Other Family history Relation Name Status Comments Father Mother Other Family history Sibling Sister from c ovid Social History Tobacco Use Types Packs/Day Years Used Date Smoking Tobacco: Never Smokeless Tobacco: Never Tobacco Cessation:Counseling Given: Yes Alcohol Use Standard Drinks/Week Comments Not Currently [...] Recorded Patient Health Questionnaire-2 Score 0 04/14/2025 [facility] [place] [facility] Occupat ional [facility] - Occupational Stress [...] any time in the past 12 m [facility], were you homeless or [...] PM EDT Temperature - - Respiratory Rate 18 04/08/2025 11:29 AM EDT Oxygen Saturation 96% 04/14/2025 1:27 PM EDT Inhaled Oxygen Concentration - - Weight 109 kg (241 lb) 04/14/2025 1:27 PM EDT Height 188 cm (6' 2 ) 04/14/2025 1:27 PM EDT Body Mass Index 30.94 04/14/2025 1:27 PM EDT Plan of Treatment Upcoming Encounters Date Type Department Care Team (Late st Contact Info) Description 04/24/2025 1:00 PM EDT Office Visit [facility] [address] [facility] [address] [place] [address] Emmanuel Gonzalez DPJenni [address] [facility] 5 [place] [address] Health Maintenance Due Date Last Done Comments Medicare Annual Wellness (AWV) 04/26/2025 04/26/2024 , 06/06/2023 Influenza Vaccine (#1) 2025 , 06/06/2023, 05/31/2022, Additional history exists Pneumococcal Vaccine: 65+ Years Completed 10/08/2020, 05/28/2020, 05/18/2015 Procedures Procedure Name Priority Date/Time Associated Diagnosis Comments MR FOOT RIGHT WO IV CONTRAST Routine 04/15/2025 8:44 AM EDT Osteomyelitis of right foot, unspecified type (HCC) MECA Routine 04/08/2025 12:00 AM EDT HERPES SIMPLEX VIRUS 1 Routine 04/08/2025 12:00 AM EDT CULTURE, URINE, ROUTINE Routine 01/17/2025 11:06 AM EDT Dysuria from Last 3 Months Results * MR foot right wo IV [...] Bird MD IM MRI PROCEDURES Final Result * (ABNORMAL) [facility] (04/08/2025 12:00 AM EDT) [facility]) 23.000 - 31.199 ppm 04/09/2025 1:18 PM EDT [facility] MECA Detected(A) 23.000 - 31.199 ppm 04/09/2025 1:18 PM EDT [facility] TET B, TET M 23.751(A) 23.000 - 27.778 ppm 04/09/2025 1:18 PM EDT [facility] TET B, TET M Detected(A) 23.000 - 27.778 ppm 04/09/2025 1:18 PM EDT [facility] ACINETOBACTER BAUMANNII (ACUTE WOUND) 0 19.961 - 24.689 ppm 04/09/2025 1:19 PM EDT [facility] ACINETOBACTER BAUMANNII (ACUTE WOUND) Not Detected 19.961 - 24.689 ppm 04/09/2025 1:19 PM EDT [facility] BACTEROIDES FRAGILIS, VULGATUS (ACUTE WOUND) 23.270(A) 19.961 - 24.689 ppm 04/09/2025 1:18 PM EDT [facility] BACTEROIDES FRAGILIS, VULGATUS (ACUTE WOUND) Detected(A) 19.961 - 24.689 ppm 04/09/2025 1:18 PM EDT [facility] CITROBACTER FREUNDII (ACUTE WOUND) 0 19.961 - 24.689 ppm 04/09/2025 1:19 PM EDT [facility] CITROBACTER FREUNDII (ACUTE WOUND) Not Detected 19.961 - 24.689 ppm 04/09/2025 1:19 PM EDT [facility] CLOSTRIDIUM PERFRINGENS, NOVYI, SEPTICUM (ACUTE WOUND) 0 19.961 - 24.689 ppm 04/09/2025 1:19 PM EDT [facility] CLOSTRIDIUM PERFRINGENS, NOVYI, SEPTICUM (ACUTE WOUND) Not Detected 19.961 - 24.689 ppm 04/09/2025 1:19 PM EDT [facility] ENTEROBACTER CLOACAE COMPLEX, KLEBSIELLA (ENTEROBACTER) AEROGENES ((A) 0 19.961 - 24.689 ppm 04/09/2025 1:19 PM EDT [facility] ENTEROBACTER CLOACAE COMPLEX, KLEBSIELLA (ENTEROBACTER) AEROGENES ((A) Not Detected 19.961 - 24.689 ppm 04/09/2025 1:19 PM EDT [facility] ENTEROCOCCUS FAECALIS, FAECIUM 0 19.961 - 24.689 ppm 04/09/2025 1:19 PM EDT [facility] ENTEROCOCCUS FAECALIS, FAECIUM Not Detected 19.961 - 24.689 ppm 04/09/2025 1:19 PM EDT [facility] ESCHERICHIA COLI (ACUTE WOUND) 0 19.961 - 24.689 ppm 04/09/2025 1:19 PM EDT [facility] ESCHERICHIA COLI (ACUTE WOUND) Not Detected 19.961 - 24.689 ppm 04/09/2025 1:19 PM EDT [facility] KLEBSIELLA PNEUMONIAE, OXYTOCA (ACUTE WOUND) 0 19.961 - 24.689 ppm 04/09/2025 1:19 PM EDT [facility] KLEBSIELLA PNEUMONIAE, OXYTOCA (ACUTE WOUND) Not Detected 19.961 - 24.689 ppm 04/09/2025 1:19 PM EDT [facility] PROTEUS MIRABILIS, VULGARIS (ACUTE WOUND) 22.966(A) 19.961 - 24.689 ppm 04/09/2025 1:18 PM EDT [facility] PROTEUS MIRABILIS, VULGARIS (ACUTE WOUND) Detected(A) 19.961 - 24.689 ppm 04/09/2025 1:18 PM EDT [facility] PSEUDOMONAS AERUGINOSA (ACUTE WOUND) 0 19.961 - 24.689 ppm 04/09/2025 1:19 PM EDT [facility] PSEUDOMONAS AERUGINOSA (ACUTE WOUND) Not Detected 19.961 - 24.689 ppm 04/09/2025 1:19 PM EDT [facility] SERRATIA MARCESCENS (ACUTE WOUND) 0 19.961 - 24.689 ppm 04/09/2025 1:19 PM EDT [facility] SERRATIA MARCESCENS (ACUTE WOUND) Not Detected 19.961 - 24.689 ppm 04/09/2025 1:19 PM EDT [facility] STAPHYLOCOCCUS AUREUS (ACUTE WOUND) 24.790(A) 19.961 - 24.689 ppm 04/09/2025 1:18 PM EDT [facility] STAPHYLOCOCCUS AUREUS (ACUTE WOUND) Detected(A) 19.961 - 24.689 ppm 04/09/2025 1:18 PM EDT [facility] STREPTOCOCCUS AGALACTIAE (GROUP B STREP) (ACUTE WOUND) 0 19.961 - 24.689 ppm 04/09/2025 1:19 PM EDT [facility] STREPTOCOCCUS AGALACTIAE (GROUP B STREP) (ACUTE WOUND) Not Detected 19.961 - 24.689 ppm 04/09/2025 1:19 PM EDT [facility] STREPTOCOCCUS PYOGENES (GROUP A STREP) (ACUTE WOUND) 0 19.961 - 24.689 ppm 04/09/2025 1:19 PM EDT [facility] STREPTOCOCCUS PYOGENES (GROUP A STREP) (ACUTE WOUND) Not Detected 19.961 - 24.689 ppm 04/09/2025 1:19 PM EDT [facility] VIBRIO CHOLERAE, PARAHAEMOLYTICUS, VULNIFICUS (ACUTE WOUND) 0 23.000 - 31.296 ppm 04/09/2025 1:19 PM EDT [facility] VIBRIO CHOLERAE, PARAHAEMOLYTICUS, VULNIFICUS (ACUTE WOUND) Not Detected 23.000 - 31.296 ppm 04/09/2025 1:19 PM EDT [facility] Wound 04/08/2025 04/09/2025 4:1 0 AM EDT us Zoë BROWER LAB BLOOD ORDERABLES Edited Re sult - Final [facility] [address] Carrero [facility] [place] [address] * HERPES SIMPLEX VIRUS 1 (04/08/2025 12:00 AM EDT) HERPES SIMPLEX VIRUS 1 0 23.000 - 32.355 ppm 04/09/2025 11:32 AM EDT [facility] HERPES SIMPLEX VIRUS 1 Not Detected 23.000 - 32.355 ppm 04/09/2025 11:32 AM EDT [facility] HERPES SIMPLEX VIRUS 2 0 23.000 - 31.433 ppm 04/09/2025 11:32 AM EDT [facility] HERPES SIMPLEX VIRUS 2 Not Detected 23.000 - 31.433 ppm 04/09/2025 11:32 AM EDT [facility] HUMAN MONKEYPOX VIRUS 0 23.000 - 32.544 ppm 04/09/2025 11:37 AM EDT [facility] HUMAN MONKEYPOX VIRUS Not Detected 23.000 - 32.544 ppm 04/09/2025 11:37 AM EDT [facility] VARICELLA ZOSTER VIRUS (HUMAN HERPESVIRUS 3) 0 23.000 - 31.749 ppm 04/09/2025 11:32 AM EDT [facility] VARICELLA ZOSTER VIRUS (HUMAN HERPESVIRUS 3) Not Detected 23.000 - 31.749 ppm 04/09/2025 11:32 AM EDT [facility] Wound 04/08/2025 04/09/2025 4:1 0 AM EDT us Zoë BROWER LAB BLOOD ORDERABLES Final Res ult [facility] [address] [place] [address] * Urine culture (clean catch) (01/17/2025 11:06 AM EDT) Pathologist [facility] MICRO NUMBER [id number] [facility] SPECIMEN QUALITY Adequate [facility] SOURCE: (QUEST) URINE [facility] STATUS FINAL [facility] RESULT SEE NOTE [facility] Comment: No Growth Urine Urine specimen obtained by clean catch procedure / Unknown 01/17/2025 11:06 AM EDT 01/17/2025 11:06 AM EDT Narrative Resulting Agency Comment Performing Organization Information Site ID: [id number] Name: [facility] Address: [address] [place] [address] Director: Gene Liang MD us Mary Wilson PROGRAM HOST LAB MICROBIOLOGY - GENERAL ORDER CAIT Final Result [facility] from Last 3 Months Insurance [employer] MED[employer]ARE [employer]VANTAGE Care Teams Inspector Boiler Relationship Specialty Start Date End Date Nikko Bird MD [address] [facility] [address] [place] [address] PCP - [employer] 08/28/17 Nikko Bird MD [address] [facility] [address] [place] [address] PCP - General Family Medicine 03/09/23 Elaine Saab LPN [address] [facility] [address] [place] [address] 11/15/24
--- OUTSIDE RECORDS SUMMARY | 2025-04-15 12:57 | XMS_ITS | Clinical Summary ---
Author Organization [facility] Address [address] [place] [address] Care Team Providers Care Deputy Clerk Of [address] Name Role Phone Nikko Bird MD Primary Care Provider [phone] System, Provider Not In Unavailable Unavaila ble Allergies Active Allergy Reactions Criticality Noted Date Comments Doxycycline 10/25/2018 Elevated blood pressure, GI intolerance/ nausea/vomiting Gabapentin GI Intolerance 03/14/2025 Medications metoprolol tartrate (LOPRESSOR) 50 MG tablet Take 1 (one) tablet (50 mg total) by mouth 2 (two) times a day . Active fluticasone (FLONASE) 50 mcg/actuation nasal spray 2 (two) sprays by Each Nare route daily . 16 g 12 10/12/19 19 Active polyethylene glycol (MIRALAX) 17 gram powder Take 17 (seventeen) g by mouth daily . 09/04/19 12 Active zolpidem (AMBIEN) 10 mg tablet Take 1 (one) tablet (10 mg total) by mouth nightly as needed . 09/30/19 20 Active aspirin 81 mg cap Take 1 (one) capsule (81 mg total) by mouth daily . 11/27/19 20 Active omeprazole (PRILOSEC) 20 MG capsule Take 1 (one) capsule (20 mg total) by mouth daily . 11/27/19 20 Active losartan (COZAAR) 50 MG tablet Take 1 (one) tablet (50 mg total) by mouth daily . Active rivaroxaban (XARELTO) 2.5 mg tablet Take 1 (one) tablet (2.5 mg total) by mouth 2 (two) times a day . 11/27/19 Active albuterol 90 mcg/actuation inhalerIndicati ons:Chronic obstructive pulmonary disease, unspecified COPD type (HCC) Inhale 2 (two) puffs every 4 (four) hours as needed for wheezing, shortness of breath or cough . 54 g 3 08/30/19 Active Calmoseptine 0.44-20.6 % Oint Apply 1 Application topically daily as needed . 06/27/20 Active nitroGLYCERIN (NITROSTAT) 0.[address] 1 tablet as needed by sublingual route. 12/08/19 Active furosemide (LASIX) 20 MG tabletIndicatio ns:edema Take 1 (one) tablet (20 mg total) by mouth daily as needed Reasons: visible water retention. Active tamsulosin (FLOMAX) 0.4 mg capsule Take 1 (one) capsule (0.4 mg total) by mouth daily . Active azelastine (ASTELIN) 137 mcg (0.1 %) nasal spray 1 (one) spray by Each Nare route daily . Active atorvastatin (LIPITOR) 80 MG tablet Take 1 (one) tablet (80 mg total) by mouth nightly . 30 tablet 03/21/20 25 Active naloxone (NARCAN) 4 mg/actuation [place] Administer 1 spray into one nostril for known or suspected opioid overdose. If patient worsens or does not respond, may repeat in 2-3 minutes. . 2 each 03/21/20 Active atorvastatin (LIPITOR) 80 MG tablet Take 0.5 (one-half) tablet (40 mg total) by mouth 2 (two) times a day 08/29 tab . 025 Discontinu ed(Stop Taking at Discharge) oxyCODONE-aceta minophen (PERCOCET) 5-325 mg per tablet Take 1 (one) tablet by mouth every 6 (six) hours as needed for pain . 01/19/20 025 Discontinu ed(Stop Taking at Discharge) oxyCODONE-aceta minophen (PERCOCET) 5-325 mg per tabletIndicatio ns:Acute pain of right lower extremity Take 1 (one) tablet by mouth every 6 (six) hours as needed for pain (Days supply per fill: 3) . 12 tablet 03/21/20 25 025 Active Problems Problem Noted Date Diagnosed Date Carotid stenosis, asymptomatic, bilateral 2024 Assessment & Plan (03/14/2025 3:32 PM EDT): Asymptomatic. No hx of CVA Non-invasive Studies: Carotid Duplex (04/2024): Left ICA with mild <50% stenosis of heterogenous plaque. Right ICA with moderate 50-69% stenosis of heterogenous plaque Posterior tibial tendinitis of right leg 023 11/07/2022 Hematoma of arm, left, initial encounter 023 Assessment & Plan (11/04/2022 7:47 AM EST): 82 yo RHD male with left upper arm hematoma - will D/W Dr. Mcakenzie - XR reviewed; negative for fracture or [...] Dr. Messina as needed if symptoms persist Community acquired pneumonia of left lower lobe of lung 11/03/2022 Pulmonary nodule 01/21/2022 PAD (peripheral artery disease) 01/21/2022 Assessment & Plan (03/14/2025 3:28 PM EDT): Longstanding, significant atherosclerotic disease with history of multiple endovascular and surgical interventions as outlined in the body of this note, please reference Plan: Continue ASA and statin therapies as prescribed. Assessment & Plan (11/04/2022 7:15 AM EST): S/p L fem-peroneal (GSV) bypass per Dr. Millan in 2019 in the setting of CLI. S/p L TMA shortly thereafter which successfully healed. Established with Dr. Millan for ongoing surveillance of bypass graft. R YAMILE in March 2022 was known to be reduced (0.5) Cellulitis 01/18/2022 Gangrene of left foot 10/04/2018 Acute pain of right lower extremity 09/06/2018 Assessment & Plan (09/07/2018 2:48 PM EST): -Presented to [facility] 09/04/2018 as a transfer from [place] for second opinion regarding left lower extremity [...] in pain -Reports pain is uncontrolled with DATABASE ENGINEER Dilaudid pump, and pain does not decrease [...] paradise Fernandez RN -Please call with questions Coronary artery disease invo lving coronary bypass graft of tolowa dee-ni' heart without angina pectoris 09/05/2018 Assessment & Plan (03/14/2025 3:30 PM EDT): S/p 3v CABG in 2017 Asymptomatic Assessment & Plan (09/05/2018 8:45 AM EST): Patient with remote coronary artery bypass grafting to 3 vessels. Patient denies chest pain at this time. Hypercholesteremia 09/05/2018 Assessment & Plan (09/05/2018 8:46 AM EST): Patient with history of hypercholesteremia. Plan: Continue high intensity statin medication Risk factor modification. Essential hypertension 09/05/2018 Assessment & Plan (09/05/2018 8:47 AM EST): Patient with history of hypertension. Blood pressure at this time 132/62. Plan: Continue medications as prescribed. Class 1 obesity with body ma ss index (BMI) of 31.0 to 31.9 in adult 09/05/2018 Assessment & Plan (09/05/2018 8:48 AM EST): Patient with BMI greater than 30. Plan: Patient with BMI >30. According to the NIH and USPSTF, it is recommended that the patient lose weight utilizing a combination of dietary (reduction in calories of 500 to 1,000 kcal/day) and behavioral therapies, in addition to increasing physical activity (30 to 45 minutes for 3 to 5 days per week) for a goal BMI <30. Critical lower limb ischemia 09/04/2018 Assessment & Plan (03/15/2025 9:12 AM EDT): Presents from Dr. 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 YAMILE (03/14/2025): Right 0.5, Left 0.55; TBIs 0.00 YAMILE (07/2023): Right 0.39, Left 0.89 LLE Bypass Graft duplex US (07/2023): Less than 50% stenosis in the left femoral-peroneal bypass graft YAMILE (03/2022): Right 0.59, Left 1.02 CTA Aorta with LE runoff (03/2022): Left common femoral to tibioperoneal trunk bypass graft is patent. Single-vessel runoff in the left lower extremity below the level of the anastomosis. Focal stenosis of the distal 3rd of the right SFA with occlusion of the right popliteal artery and single-vessel reconstitution of a small peroneal artery at the level of the right ankle. Severe aortic atherosclerosis without aneurysm or dissection. 2+ BL femoral and popliteal pulses. Unable to readily palpate either right or left PT pulses or right DP pulse. Biphasic doppler signals over BL PT pulses. Doppler signal over right AT. No doppler signal over right DP. Reduced sensorimotor function, erythema/dependent rubor, and edema of the right foot. Plantar surface: insensate to the arch. Dorsal surface: grossly insensate from toes to the ankle. R femoral artery access site dressing removed, band aid placed. No hematoma ecchymosis or drainage noted. Patient notes area is sore . R PT access site stable--no hematoma, ecchymosis or drainage noted. Plan: Continue to hold Xarelto for now. Heparin gtt if needed for hx of a.fib (not needed from a PV standpoint) Plan for RLE angio +/- intervention 03/17/25, with Dr. Madrigal Continue asa and Plavix therapies We will continue to monitor over the weekend Assessment & Plan (09/06/2018 7:40 AM EST): Pt s/p LLE angiogram with Dr Hahn who feels that the pt has no further endovascular options. He has consulted Dr. Millan for a possible tibial bypass. Pt s/p LLE critical limb ischemia Deann class 4 rest pain with distal discoloration to his toes. Pt is s/p L pop angioplasty with stent placement 08/09 at [facility] in [place], [place]. Pt was placed on Xarelto and ASA. Pt represented to that hospiral / with increased LLE pain. On exam pt has palpable bilateral femoral pulses and popliteal pulses. Unable to obtain by doppler BLE R or L DP/PT pulses. LLE is discolored *see images in this note. Plan: Continue heparin at this time Continue Rooke boot to left lower extremity. Continue ASA, Plavix and high intensity statin medication. Will sign off Encounters Date Type Department Care Team Description 04/02/2025 12:00 PM EDT Follow-Up [facility] [address] [place] [phone] Gracy Millan MD Critical lower limb ischemia (HCC) (Primary Dx) 04/02/2025 Travel 03/18/2025 Documentation [facility] [address] [place] [phone] Brenna Galloway RN 03/17/2025 12:20 PM EDT Anesthesia Event [facility] [address] [place] [address] Skyler Gil MD Reardon, Michael E., MD 03/17/2025 12:10 PM EDT - 03/17/2025 5:10 PM EDT Surgery [address] [address] Gracy Millan MD RIGHT FEMORAL TO TIBIAL BYPASS WITH ARM VEIN. Angiogram 03/14/2025 11:04 AM EDT - 03/21/2025 6:29 PM EDT Hospital Encounter [facility] [address] [phone] Elaine Macdonald MD Physicians, [facility] Gilbert Hernández DO Dooling, Patrick Cassidy, MD Discharge Disposition: Home 03/14/2025 10:00 AM EDT Office Visit [facility] [address] [place] [address] Gracy Millan MD Hoover, Elaine Kurtz, KAMARI Acute pain of right lower extremity (Primary Dx) 03/14/2025 7:30 AM EDT - 03/14/2025 11:59 PM EDT Hospital Encounter [facility] [address] [place] [phone] Gracy Millan MD Discharge Disposition: Home 03/14/2025 7:26 AM EDT - 03/14/2025 11:59 PM EDT Hospital Encounter [facility] [address] [place] [phone] Gracy Millan MD Discharge Disposition: Home 03/14/2025 Documentation [facility] [address] [place] [phone] Ludivina Garcia, RN 03/14/2025 Documentation [facility] [address] [facility] [address] [place] [phone] Ludivina Garcia, RN 03/14/2025 Travel 03/13/2025 Documentation [facility] [address] [place] [phone] Ludivina Garcia, RN from Last 3 Months Immunizations Immunization Administration Dates Next Due INFLUENZA IIV3 65+YO FLUAD 27002 06/18/2019 Influenza, Injectable, Quadrivalent 05/22/2017 Influenza, high dose seasonal 06/06/2018, 015 Pneumococcal Conjugate 13-Valent (Prevnar 13) Family History Medical History Relation Comments Prostate cancer Brother Heart disease Father No Known Problems Mother Cancer Paternal Aunt Relation Status Comments Brother Father Mother Paternal Aunt Social History Tobacco Use Types Packs/Day Years Used Date Smoking Tobacco: Never Smokeless Tobacco: Never Alcohol Use Standard Drinks/Week Comments Not Currently 0 (1 standard drink = 0.6 oz pur e alcohol) [facility] Utilities Answer Date Recorded In the past 12 months has [employer], gas, oil, or water [employer] threatened to shut off services in your [...] [place] [facility] (including now)? No 03/14/2025 Sex and Gender Information Value Date Recorded Sex Assigned at Not on file Legal Sex Male 2:37 PM EDT Gender Identity Male 09/04/2018 8:23 PM EST Sexual Orientation Straight 09/04/2018 8: 23 PM EST Last Filed Vital Signs Vital Sign Reading Time Taken Comments Blood Pressure 121/65 04/02/2025 11:54 AM EDT Pulse 68 04/02/2025 11:54 AM EDT Temperature 36.7 C (98.1 F) 03/21/2025 2:58 PM EDT Respiratory Rate 12 04/02/2025 11:54 AM EDT Oxygen Saturation 92% 04/02/2025 11:54 AM EDT Inhaled Oxygen Concentration - - Weight 109.8 kg (242 lb) 04/02/2025 11:54 AM EDT Height 188 cm (6' 2 ) 04/02/2025 11:54 AM EDT Body Mass Index 31.07 04/02/2025 11:54 AM EDT Plan of Treatment Upcoming Encounters Date Type Department Care Team (Late st Contact Info) Description 04/23/2025 1:00 PM EDT Appointment [facility] [address] [place] [phone] Gracy Millan MD [address] [place] [phone] 04/23/2025 2:00 PM EDT Appointment [facility] [address] [place] [phone] Gracy Millan MD [address] [place] [phone] 04/23/2025 3:15 PM EDT Follow-Up [facility] [address] [place] [phone] Gracy Millan MD [address] [place] [phone] Health Maintenance Due Date Last Done Comments Tetanus: Every 10yrs 1940 Zoster Vaccines (1 of 2) 1989 Falls Risk Assessment 01/04/2004 Respiratory Syncytial Virus Immunization: Risk, 60-74 Risk, or 75+ (1 - 1-dose 75+ series) 2014 Pneumococcal Vaccine: Age 50 + (2 of 2 - PPSV23, PCV20, or PCV21) 07/13/2015 05/18/2015 COVID-19 Vaccine (4 - 2023-2 5 season) 2024 09/09/2021, 10/28/2020, 09/30/2020 Medicare Wellness Visit 06/06/2024 06/06/2023 Influenza Vaccine (#1) 2025 9, 06/06/2018, 05/22/2017, Additional history exists Depression Screening/Follow- Up (PHQ-2/9) 03/15/2026 03/15/2025 Medical Devices Implanted Type Area Lamp Cleaner Device Identifier Shelf Expiration Date Model / Serial / Lot Hemostat 2 X 4in Surgicel Fibrillar - [id number] Implanted:Qty: 1 on 09/07/2018 by Gracy Millan MD at [facility] Left: Leg [employer] 02/24/20211961 / / [id number] Hemostat 2 X 4in Surgicel Fibrillar - Sna Implanted:Qty: 1 on 03/17/2025 by Gracy Millan MD at [facility] 05/27/20271961 / NA / [id number] Sealant 10ml Hemostatic Matrix Fast Prep Floseal W/Recothrom - [id number] Implanted:Qty: 1 on 03/17/2025 by Gracy Millan MD at [facility] Right: Arterial DEL CASTILLO BIO [id number] 10/30/2026 [id number] / / [id number] Procedures Procedure Name Priority Date/Time Associated Diagnosis Comments CBC Routine 03/21/2025 6:06 AM EDT MAGNESIUM LEVEL Routine 03/21/2025 6:06 AM EDT BASIC METABOLIC PANEL Routine 03/21/2025 6:06 AM EDT US ANKLE/BRACHIAL INDICES EXTREMITY LIMITED Routine 03/20/2025 9:00 AM EDT CBC Routine 03/20/2025 4:38 AM EDT MAGNESIUM LEVEL Routine 03/20/2025 4:38 AM EDT BASIC METABOLIC PANEL Routine 03/20/2025 4:38 AM EDT CBC Routine 03/19/2025 4:55 AM EDT MAGNESIUM LEVEL Routine 03/19/2025 4:55 AM EDT BASIC METABOLIC PANEL Routine 03/19/2025 4:55 AM EDT CBC Routine 03/18/2025 4:01 AM EDT MAGNESIUM LEVEL Routine 03/18/2025 4:01 AM EDT BASIC METABOLIC PANEL Routine 03/18/2025 4:01 AM EDT HEMOGLOBIN AND HEMATOCRIT STAT 2024 11:09 PM EDT XR OR ANGIO LOWER EXTREMITY RIGHT Routine 03/17/2025 4:13 PM EDT AN PERIPHERAL IV Routine 03/17/2025 12:4 0 PM EDT IA ARTL CATHJ/CANNULJ MNTR/TRANSFUSION SPX PRQ Routine 03/17/2025 12:40 PM EDT AIRWAY ETT Routine 03/17/2025 12:40 PM EDT IA BYP FEM-ANT TIBL PST TIBL PRONEAL ART/OTH DSTL 03/17/2025 11:59 AM EDT PERIPHERAL ARTERY DISEASE POC GLUCOSE - RALS Routine 03/17/2025 11 :01 AM EDT APTT Routine 03/17/2025 3:53 AM EDT CBC Routine 03/17/2025 3:53 AM EDT MAGNESIUM LEVEL Routine 03/17/2025 3:53 AM EDT BASIC METABOLIC PANEL Routine 03/17/2025 3:53 AM EDT APTT Timed 03/16/2025 7:20 PM EDT ECG 12-LEAD Routine 03/16/2025 11:44 AM EDT TYPE AND SCREEN STAT 03/16/2025 9:07 AM EDT PT/INR Add-On 03/16/2025 9:07 AM EDT APTT Timed 03/16/2025 9:07 AM EDT CBC Routine 03/16/2025 3:28 AM EDT MAGNESIUM LEVEL Routine 03/16/2025 3:28 AM EDT BASIC METABOLIC PANEL Routine 03/16/2025 3:28 AM EDT APTT Timed 03/16/2025 3:28 AM EDT APTT Routine 03/15/2025 7:52 PM EDT HEMOGLOBIN AND HEMATOCRIT Routine 2024 10:02 AM EDT CBC Routine 03/15/2025 3:05 AM EDT MAGNESIUM LEVEL Routine 03/15/2025 3:05 AM EDT BASIC METABOLIC PANEL Routine 03/15/2025 3:05 AM EDT US SAPHENOUS VEIN MAP KAJAL 03/14/2025 9:56 PM EDT US UE VEIN MAP KAJAL 03/14/2025 9:55 PM EDT ECG 12-LEAD STAT 03/14/2025 8:12 PM EDT ECG 12-LEAD Routine 03/14/2025 5:11 PM EDT CBC WITH AUTO DIFFERENTIAL STAT 03/14/2025 11:28 AM EDT PINK TOP STAT 03/14/2025 11:28 AM EDT CHAO TOP STAT 03/14/2025 11:28 AM EDT LIGHT GREEN TOP STAT 03/14/2025 11:28 AM EDT RAINBOW DRAW STAT 03/14/2025 11:28 AM EDT PT/INR STAT 03/14/2025 11:28 AM EDT CHEM 7 KAJAL 03/14/2025 11:28 AM EDT CBC AND DIFFERENTIAL STAT 03/14/2025 11:28 AM EDT US DUPLEX ARTERIAL LEG RIGHT Routine 03/14/2025 9:15 AM EDT PVD (peripheral vascular disease) US ANKLE/BRACHIAL INDICES EXTREMITY LIMITED Routine 03/14/2025 9:09 AM EDT PVD (peripheral vascular disease) ELECTROPHYSIOLOGY REPORT 03/12/2025 from Last 3 Months Results * (ABNORMAL) CBC (03/21/2025 6:06 AM EDT) Only the most recent of7 resultswithin the time period is included. WBC 4.33(L) 4.50 - 11.00 K/mcL 03/21/2025 6:41 AM EDT [facility] RBC 3.16(L) 4.50 - 5.90 M/mcL 03/21/2025 6:41 AM EDT [facility] Hemoglobin 10.5(L) 13.5 - 17.5 g/dL 03/21/2025 6:41 AM EDT [facility] Hematocrit 30.0(L) 41.0 - 53.0 % 03/21/2025 6:41 AM EDT [facility] MCV 94.9 80.0 - 100.0 fL 03/21/2025 6:41 AM EDT [facility] MCH 33.2 26.0 - 34.0 pg 03/21/2025 6:41 AM EDT [facility] MCHC 35.0 31.0 - 37.0 g/dL 03/21/2025 6:41 AM EDT [facility] Platelets 213 150 - 400 K/mcL 03/21/2025 6:41 AM [facility] RDW - CV 13.7 11.6 - 14.8 % 03/21/2025 6:41 AM EDT [facility] MPV 9.7 9.4 - 12.4 fL 03/21/2025 6:41 AM [facility] Nucleated RBC 0.0 % 03/21/2025 6:41 AM [facility] Nucleated RBC Abs 0.00 0.00 - 0.00 K/mcL 03/21/2025 6:41 AM [facility] Blood BLOOD SPECIMEN / Unknown Venipuncture / Unknown 03/21/2025 6:06 AM EDT 03/21/2025 6:20 AM EDT Skyler Otto MD LAB BLOOD ORDERABLES Final Result [facility] [address] [place] [address] * Magnesium (03/21/2025 6:06 AM EDT) Only the most recent of7 resultswithin the time period is included. Magnesium 2.1 1.6 - 2.4 mg/dL 03/21/2025 6:54 AM T [facility] Blood BLOOD SPECIMEN / Unknown Venipuncture / Unknown 03/21/2025 6:06 AM EDT 03/21/2025 6:20 AM EDT us Skyler Otto MD LAB BLOOD ORDERABLES Final Result [facility] [address] [place] [address] * (ABNORMAL) Basic Metabolic Panel (03/21/2025 6:06 AM EDT) Only the most recent of7 resultswithin the time period is included. Sodium 140 135 - 145 mmol/L 03/21/2025 6:54 AM [facility] Potassium 4.0 3.5 - 5.1 mmol/L 03/21/2025 6:54 AM [facility] Comment:Slightly Hemolyzed Chloride 108 98 - 108 mmol/L 03/21/2025 6:54 AM [facility] Bicarbonate 22 21 - 32 mmol/L 03/21/2025 6:54 AM [facility] Anion Gap 14 10 - 20 mmol/L 03/21/2025 6:54 AM [facility] Glucose 109(H) 65 - 99 mg/dL 03/21/2025 6:54 AM [facility] BUN 19 8 - 25 mg/dL 03/21/2025 6:54 AM [facility] Creatinine 0.98 0.80 - 1.30 mg/dL 03/21/2025 6:54 AM [facility] eGFR 75 >=60 mL/min/1.7 3 m2 03/21/2025 6:54 AM [facility] Comment:Estimated GFR was ca lculated using the 2020 CKD-EPI creatinine equation. BUN/Creatinine Ratio 19.4 10.0 - 20.0 03/21/2025 6:54 AM [facility] Calcium 9.4 8.4 - 10.2 mg/dL 03/21/2025 6:54 AM [facility] Blood BLOOD SPECIMEN / Unknown Venipuncture / Unknown 03/21/2025 6:06 AM EDT 03/21/2025 6:20 AM EDT Narrative [facility] - 03/21/2025 6:54 AM EDT [facility] has implemented the eGFR calculation approach that does not have a coefficient for race that conforms to the NKF-ASN Task Force Recommendations. us Skyler Otto MD LAB BLOOD ORDERABLES Final Result [facility] [address] [place] [address] * US Doppler ankle/brachial index (03/20/2025 9:00 AM EDT) Only the most recent of2 resultswithin the time period is included. 03/20/2025 8:42 AM EDT Narrative [facility] - 03/20/2025 9:40 AM EDT Patient Info Name: Tristin Gray Age: 85 years : 1940 Gender: Male Exam Date: 03/20/2025 8:42 AM Patient Status: INPATIENT Site Location: [facility] Indications I73.9 - Peripheral vascular disease, unspecified Procedure Description 42791 Limited bilateral noninvasive physiologic studies of upper or lower extremity arteries with bidirectional Doppler/PVR waveform analysis at 1-2 levels. Field Sales Consultant: Maggy Dempsey T Staff Ordering Physician: Alexei Salomon Conclusions * Right and left ankle brachial indices indicate moderate peripheral artery disease. Right YAMILE is 0.57. Left YAMILE is 0.41. * Moderate small vessel disease at the transmetatarsal level in the right foot. 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 * Right toe PPG waveform is absent. Toe brachial index is 0.0. * Left toe brachial index is not obtained due to amputation. * Unable to obtain left brachial artery pressure due to limb alert band. Risk Factors Patient with a history of PAD and hypertension. Segmental BP RIGHT Brachial A mmH RIGHT SAFETY AND OCCUPATIONAL HEALTH MANAGER mmH RIGHT SAFETY AND OCCUPATIONAL HEALTH MANAGER Index: 0.53 RIGHT DPA mmH RIGHT DPA Index: 0.57 RIGHT Digit mmH RIGHT YAMILE Index: 0.57 RIGHT TBI Index: 0.00 LEFT SAFETY AND OCCUPATIONAL HEALTH MANAGER Index: 0.36 LEFT SAFETY AND OCCUPATIONAL HEALTH MANAGER mmH LEFT DPA Index: 0.41 LEFT DPA mmH LEFT YAMILE Index: 0.41 Doppler RIGHT SAFETY AND OCCUPATIONAL HEALTH MANAGER Waveform: Monophasic RIGHT DPA Waveform: Monophasic LEFT SAFETY AND OCCUPATIONAL HEALTH MANAGER Waveform: Monophasic LEFT DPA Waveform: Monophasic , PVR RIGHT Ankle Grade: Abnormal RIGHT Transmetarsal Grade: Abnormal RIGHT Digit (PPG) Grade: Absent LEFT Ankle Grade: Abnormal Prior Interventions 03/17/2025 right femoral and tibial bypass graft-. 03/17/2025 right femoral and tibial Report Signatures Finalized by Sylvia Meyer MD, RPVI, FSIR on 03/20/2025 09:40 AM Procedure Note Sylvia Meyer MD - 03/20/2025 Patient Info Name: Tristin Gray Age: 85 years : 1940 Gender: Male Exam Date: 03/20/2025 8:42 AM Patient Status: INPATIENT Site Location: [facility] Indications I73.9 - Peripheral vascular disease, unspecified Procedure Description [id number] Limited bilateral noninvasive physiologic studies of upper orlower extremity arteries with bidirectional Doppler/PVR waveform analysis at1-2 levels. Field Sales Consultant: Maggy Dempsey T Staff Ordering Physician: Alexei Salomon Conclusions * Right and left ankle brachial indices indicate moderate peripheralartery disease. Right YAMILE is 0.57. Left YAMILE is 0.41. * Moderate small vessel disease at the transmetatarsal level in theright foot. 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 * Right toe PPG waveform is absent. Toe brachial index is 0.0. * Left toe brachial index is not obtained due to amputation. * Unable to obtain left brachial artery pressure due to limb alertband. Risk Factors Patient with a history of PAD and hypertension. Segmental BP RIGHT Brachial A mmH RIGHT SAFETY AND OCCUPATIONAL HEALTH MANAGER mmH RIGHT SAFETY AND OCCUPATIONAL HEALTH MANAGER Index: 0.53 RIGHT DPA mmH RIGHT DPA Index: 0.57 RIGHT Digit mmH RIGHT YAMILE Index: 0.57 RIGHT TBI Index: 0.00 LEFT SAFETY AND OCCUPATIONAL HEALTH MANAGER Index: 0.36 LEFT SAFETY AND OCCUPATIONAL HEALTH MANAGER mmH LEFT DPA Index: 0.41 LEFT DPA mmH LEFT YAMILE Index: 0.41 Doppler RIGHT SAFETY AND OCCUPATIONAL HEALTH MANAGER Waveform: Monophasic RIGHT DPA Waveform: Monophasic LEFT SAFETY AND OCCUPATIONAL HEALTH MANAGER Waveform: Monophasic LEFT DPA Waveform: Monophasic , PVR RIGHT Ankle Grade: Abnormal RIGHT Transmetarsal Grade: Abnormal RIGHT Digit (PPG) Grade: Absent LEFT Ankle Grade: Abnormal Prior Interventions 03/17/2025 right femoral and tibial bypass graft-. 03/17/2025 rightfemoral and tibial Report Signatures Finalized by Sylvia Meyer MD, RPVI, FSIR on 03/20/2025 09:40 AM us Alexei Salomon MD CV VASCULAR ORDERABLES Final R esult FUJI SYNAPSE CV * (ABNORMAL) Hemoglobin and Hematocrit (03/17/2025 11:09 PM EDT) Only the most recent of2 resultswithin the time period is included. Hemoglobin 11.2(L) 13.5 - 17.5 g/dL 03/17/2025 11:30 PM EDT [facility] Hematocrit 30.5(L) 41.0 - 53.0 % 03/17/2025 11:30 PM EDT [facility] Blood BLOOD SPECIMEN / Unknown Venipuncture / Unknown 03/17/2025 11:09 PM EDT 03/17/2025 11:26 PM EDT us Ana Luisa Murray MD LAB BLOOD ORDERABLES Final Resul t Performing Organization Address [facility] Co de Phone Number [facility] [place] [address] * XR OR Angio Lower Extremity Right (03/17/2025 4:13 PM EDT) Anatomical Region Laterality Modality Radio Fluoroscop y 03/18/2025 7:53 AM EDT Impressions 03/18/2025 10:04 AM EDT Fluoroscopy used for intraoperative angiogram. Refer to the operative report for details. MAY/edi Workstation ID: [id number] Narrative 03/18/2025 10:04 AM EDT EXAMINATION: XR OR ANGIO LOWER EXTREMITY RIGHT HISTORY: ORDERING SYSTEM PROVIDED HISTORY: Angiogram OR 21. TECHNOLOGIST PROVIDED HISTORY: Illness/Other. Reason for exam: Right leg bypass. Encounter Type: Unknown. Additional signs and symptoms: Sx. Fluoro dose in mGy: 7.18. ORDERING SYSTEM PROVIDED DIAGNOSIS CODES: I73.9 Claudication. M79.604 Right leg pain. I73.9 Peripheral artery disease. COMPARISON: None. TECHNIQUE: RADIATION EXPOSURE: Fluoro dose in Ka,r mGy: 7.18. FINDINGS: See impression. Procedure Note Sylvia Meyer MD - 03/18/2025 EXAMINATION: XR OR ANGIO LOWER EXTREMITY RIGHT HISTORY: ORDERING SYSTEM PROVIDED HISTORY: Angiogram OR 21. TECHNOLOGIST PROVIDED HISTORY: Illness/Other. Reason for exam: Right leg bypass. Encounter Type: Unknown. Additional signs and symptoms: Sx. Fluoro dose in mGy: 7.18. ORDERING SYSTEM PROVIDED DIAGNOSIS CODES: I73.9 Claudication. M79.604 Right leg pain. I73.9 Peripheral artery disease. COMPARISON: None. TECHNIQUE: RADIATION EXPOSURE: Fluoro dose in Ka,r mGy: 7.18. FINDINGS: See impression. IMPRESSION: Fluoroscopy used for intraoperative angiogram. Refer to the operativereport for details. JConteXtream/pji Workstation ID: [id number] us Gracy Millan MD IMG FLUOROSCOPY ORDERABLES Final Result * Peripheral IV (03/17/2025 12:40 PM EDT) Narrative Serjio Olivarez MD - 03/17/2025 12:40 PM EDT Serjio Olivarez MD 03/17/2025 12:40 PM Peripheral IV Related to anesthetic: yes Final size: 18 G Final orientation: right Final location: forearm Site prep: alcohol Local anesthetic: none Technique: ultrasound guidance Number of attempts: 1 us Serjio Olivarez MD IA ANESTHESIA Final Re sult * IA ARTL CATHJ/CANNULJ MNTR/TRANSFUSION SPX PRQ (03/17/2025 12:40 PM EDT) Narrative Serjio Olivarez MD - 03/17/2025 12:40 PM EDT Serjio Olivarez MD 03/17/2025 12:40 PM Arterial Line Patient location: OR Start time: 03/17/2025 12:31 PM End time: 03/17/2025 12:33 PM Staff Anesthesiologist: Serjio Olivarez MD Performed by: Anesthesiologist Preanesthetic Checklist Completed: patient identified, pre-op evaluation, risks and benefits discussed, informed consent obtained, monitors and equipment checked, IV checked and timeout performed Procedure Indications: hemodynamic monitoring and frequent blood draws Final orientation: right Final location: radial Monitoring: cardiac/vascular sonographer, pulse oximetry, heart rate and BP Sedation: general anesthesia (see MAR) Prep: ChloraPrep Local infiltration: lidocaine 1% Technique: landmarks (Palpation) Final needle: 22 G Final catheter: 20 G x 1 3/4'' Number of attempts: 1 Assessment: draws and flushes without difficulty Post procedure: taped, sterile dressing applied and EBL <10 mL Patient tolerance: patient tolerated the procedure well with no immediate complications Result [facility] Serjio Olivarez MD IA ANESTHESIA Final Re sult * ETT Airway (03/17/2025 12:40 PM EDT) Narrative Serjio Olivarez MD - 03/17/2025 12:40 PM EDT Serjio Olivarez MD 03/17/2025 12:40 PM ETT Airway Mask ventilation: ventilated by mask Technique: direct laryngoscopy Type: cuffed oral Tube size: 8 mm Final laryngoscope: Mac 3 Location: oral Final grade: 1 Insertion attempts: 1 Placement verification: auscultation, symmetrical chest wall movement and end tidal CO2 Secured at: 24 cm (measured from the teeth) Secured by: tape Bite block: none Lip/tooth/tongue trauma: no Result [facility] Serjio Olivarez MD IA ANESTHESIA Final Re sult * (ABNORMAL) POC Glucose (03/17/2025 11:01 AM EDT) Pathologist [facility] Glucose 105(H) 65 - 99 mg/dL 03/17/2025 11:02 AM EDT [facility] Blood BLOOD SPECIMEN / Unknown 03/17/2025 11:01 AM EDT 03/17/2025 11:02 AM EDT Result [facility] POCT ORDERABLES - DEV ICE Final Result Performing Organization Address City/[facility] Co de Phone Number [facility] [address] [place] [address] * (ABNORMAL) APTT Heparin Coverage (03/17/2025 3:53 AM EDT) Only the most recent of4 resultswithin the time period is included. APTT 92(H) 23 - 34 seconds 03/17/2025 5:14 AM EDT [facility] Blood BLOOD SPECIMEN / Unknown Venipuncture / Unknown 03/17/2025 3:53 AM EDT 03/17/2025 4:29 AM EDT Narrative [facility] - 03/17/2025 5:14 AM EDT Therapeutic range for APTT's is 68 - 104 seconds us Gracy Millan MD LAB BLOOD ORDERABLES Final Result Performing Organization Address [facility] Co de Phone Number [facility] [address] [place] [address] * ECG 12 Lead (03/16/2025 11:44 AM EDT) Only the most recent of3 resultswithin the time period is included. Ventricular Rate 63 BPM MUSE Atrial Rate 63 BPM MUSE P-R Interval 208 ms MUSE QRS Duration 102 ms MUSE Q-T Interval 454 ms MUSE QTC Calculation (Bezet) 464 ms MUSE P [place] 86 degrees MUSE R [place] 45 degrees MUSE T [place] 44 degrees MUSE 03/16/2025 11:4 4 AM EDT 03/17/2025 7:58 AM EDT Narrative MUSE - 03/17/2025 7:58 AM EDT Sinus rhythm with Premature supraventricular complexes Otherwise normal ECG Confirmed by MARY CARLTON ([id number]) on 03/17/2025 7:58:31 AM us Ana Luisa Murray MD ECG ORDERABLES Final Result Performing Organization Address City/[facility]/ZIP Co de Phone Number MUSE * (ABNORMAL) PT/INR (03/16/2025 9:07 AM EDT) Only the most recent of2 resultswithin the time period is included. [facility] Protime (PT) 14.7(H) 11.8 - 14.3 seconds 03/16/2025 10:22 AM EDT [facility] INR 1.1 0.8 - 1.1 03/16/2025 10:22 AM EDT [facility] Blood BLOOD SPECIMEN / Unknown Venipuncture / Unknown 03/16/2025 9:07 AM EDT 03/16/2025 9:48 AM EDT Narrative [facility] - 03/16/2025 10:22 AM EDT During the induction phase of oral anticoagulation, the INR may not reflect the anticoagulation status of the patient. Therapeutic ranges for INR's are: Most clinical situations: INR 2.0-3.0 Mechanical Prosthetic Valve: INR 2.5-3.5 Critical: INR >5.0 Alexei Salomon MD LAB BLOOD ORDERABLES Final Res ult [facility] [address] [place] [address] * Type and Screen (03/16/2025 9:07 AM EDT) [facility] ABORh O Positive 03/16/2025 10:37 AM EDT [facility] Antibody Screen Negative 03/16/2025 10:37 AM EDT [facility] Specimen Expires 03/19/2025 23:59 EST 03/16/2025 10:37 AM EDT [facility] Blood BLOOD SPECIMEN / Unknown Venipuncture / Unknown 03/16/2025 9:07 AM EDT 03/16/2025 9:48 AM EDT Alexei Salomon MD BLOOD BANK TEST ORDERABLES Fin al Result [facility] [address] [place] [address] * APTT (03/15/2025 7:52 PM EDT) [facility] APTT 33 23 - 34 seconds 03/15/2025 8:14 PM EDT [facility] Blood BLOOD SPECIMEN / Unknown Venipuncture / Unknown 03/15/2025 7:52 PM EDT 03/15/2025 7:56 PM EDT Narrative [facility] - 03/15/2025 8:14 PM EDT Therapeutic range for APTT's is 68 - 104 seconds us Mary Madrigal MD LAB BLOOD ORDERABLE S Final Result [facility] [address] [place] [address] * Ultrasound Saphenous vein mapping (03/14/2025 9:56 PM EDT) 03/14/2025 9:26 PM EDT Narrative FUJI SYNAPSE CV - 03/16/2025 11:15 AM EDT Patient Info Name: Tristin Gray Age: 85 years : 1940 Gender: Male Exam Date: 03/14/2025 9:26 PM Patient Status: INPATIENT Site Location: [facility] Indications Z01.810 - Encounter for preprocedural cardiovascular examination Procedure Description 88428 Duplex examination using B-mode, color and spectral Doppler of extremity veins including responses to compression and other maneuvers; complete bilateral study. Field Sales Consultant: Cristian Ellis RVT, [facility] Staff Ordering Physician: Alexei Salomon Conclusions * The right great saphenous vein is surgically absent. * The visualized portions of the left great saphenous vein are patent with measurements as listed. Unable to visualize the left great saphenous vein from mid thigh to proximal calf. * Right and left small saphenous veins are patent with measurements as listed. Superficial Veins RIGHT Prox SSV AP (mm): 4.2 RIGHT Mid SSV AP (mm): 2.6 RIGHT Distal SSV AP (mm): 2.4 LEFT Prox GSV (Thigh) AP (mm): 3.3 LEFT Mid GSV (Calf) AP (mm): 0.4 LEFT Distal GSV (Calf) AP (mm): 0.4 LEFT Prox SSV AP (mm): 2.8 LEFT Mid SSV AP (mm): 1.9 LEFT Distal SSV AP (mm): 2.0 Report Signatures Finalized by Aaron Hein MD, NATANAEL on 03/16/2025 11:15 AM Procedure Note Aaron Hein MD - 03/16/2025 Patient Info Name: Tristin Gray Age: 85 years : 1940 Gender: Male Exam Date: 03/14/2025 9:26 PM Patient Status: INPATIENT Site Location: [facility] Indications Z01.810 - Encounter for preprocedural cardiovascular examination Procedure Description 34403 Duplex examination using B-mode, color and spectral Doppler of extremity veins including responses to compression and other maneuvers; complete bilateral study. Field Sales Consultant: Cristian Ellis RVT, [facility] Staff Ordering Physician: Alexei Salomon Conclusions * The right great saphenous vein is surgically absent. * The visualized portions of the left great saphenous vein are patentwith measurements as listed. Unable to visualize the left great saphenous veinfrom mid thigh to proximal calf. * Right and left small saphenous veins are patent with measurements as listed. Superficial Veins RIGHT Prox SSV AP (mm): 4.2 RIGHT Mid SSV AP (mm): 2.6 RIGHT Distal SSV AP (mm): 2.4 LEFT Prox GSV (Thigh) AP (mm): 3.3 LEFT Mid GSV (Calf) AP (mm): 0.4 LEFT Distal GSV (Calf) AP (mm): 0.4 LEFT Prox SSV AP (mm): 2.8 LEFT Mid SSV AP (mm): 1.9 LEFT Distal SSV AP (mm): 2.0 Report Signatures Finalized by Aaron Hein MD, NATANAEL on 03/16/2025 11:15 AM us Alexei Salomon MD CV VASCULAR ORDERABLES Final R esult FUJI SYNAPSE CV * Upper extremity vein mapping (03/14/2025 9:55 PM EDT) 03/14/2025 9:20 PM EDT Narrative MARK SYNAPSE CV - 03/16/2025 11:14 AM EDT Patient Info Name: Tristin Gray Age: 85 years : 1940 Gender: Male Exam Date: 03/14/2025 9:20 PM Patient Status: INPATIENT Site Location: [facility] Indications Z01.810 - Encounter for preprocedural cardiovascular examination Procedure Description 13904 Duplex examination using B-mode, color and spectral Doppler of extremity veins including responses to compression and other maneuvers; complete bilateral study. Field Sales Consultant: Cristian Ellis RVT, [facility] Staff Ordering Physician: Alexei Salomon Conclusions * Right and left basilic and cephalic veins are patent with measurements as listed. Superficial Veins RIGHT Prox Basilic V (UA) AP (mm): 6.8 RIGHT Mid Basilic V (UA) AP (mm): 5.1 RIGHT Distal Basilic V (UA) AP (mm): 4.5 RIGHT Prox Basilic V (FA) AP (mm): 2.9 RIGHT Mid Basilic V (FA) AP (mm): 2.1 RIGHT Distal Basilic V (FA) AP (mm): 2.4 RIGHT Prox Cephalic V (UA) AP (mm): 4.8 RIGHT Mid Cephalic V (UA) AP (mm): 4.2 RIGHT Distal Cephalic V (UA) AP (mm): 9.7 RIGHT Prox Cephalic V (FA) AP (mm): 5.7 RIGHT Mid Cephalic V (FA) AP (mm): 1.0 RIGHT Distal Cephalic V (FA) AP (mm): 1.7 LEFT Prox Basilic V (UA) AP (mm): 4.9 LEFT Mid Basilic V (UA) AP (mm): 5.9 LEFT Distal Basilic V (UA) AP (mm): 3.8 LEFT Prox Basilic V (FA) AP (mm): 2.9 LEFT Mid Basilic V (FA) AP (mm): 2.7 LEFT Distal Basilic V (FA) AP (mm): 1.9 LEFT Prox Cephalic V (UA) AP (mm): 5.7 LEFT Mid Cephalic V (UA) AP (mm): 5.1 LEFT Distal Cephalic V (UA) AP (mm): 5.2 LEFT Prox Cephalic V (FA) AP (mm): 1.2 LEFT Mid Cephalic V (FA) AP (mm): 1.7 LEFT Distal Cephalic V (FA) AP (mm): 1.6 Report Signatures Finalized by Aaron Hein MD, RPVI on 03/16/2025 11:14 AM Procedure Note Aaron Hein MD - 03/16/2025 Patient Info Name: Tristin Gray Age: 85 years : 1940 Gender: Male Exam Date: 03/14/2025 9:20 PM Patient Status: INPATIENT Site Location: [facility] Indications Z01.810 - Encounter for preprocedural cardiovascular examination Procedure Description 48733 Duplex examination using B-mode, color and spectral Doppler of extremity veins including responses to compression and other maneuvers; complete bilateral study. Field Sales Consultant: Cristian Ellis RVT, [facility] Staff Ordering Physician: Alexei Salomon Conclusions * Right and left basilic and cephalic veins are patent with measurementsas listed. Superficial Veins RIGHT Prox Basilic V (UA) AP (mm): 6.8 RIGHT Mid Basilic V (UA) AP (mm): 5.1 RIGHT Distal Basilic V (UA) AP (mm): 4.5 RIGHT Prox Basilic V (FA) AP (mm): 2.9 RIGHT Mid Basilic V (FA) AP (mm): 2.1 RIGHT Distal Basilic V (FA) AP (mm): 2.4 RIGHT Prox Cephalic V (UA) AP (mm): 4.8 RIGHT Mid Cephalic V (UA) AP (mm): 4.2 RIGHT Distal Cephalic V (UA) AP (mm): 9.7 RIGHT Prox Cephalic V (FA) AP (mm): 5.7 RIGHT Mid Cephalic V (FA) AP (mm): 1.0 RIGHT Distal Cephalic V (FA) AP (mm): 1.7 LEFT Prox Basilic V (UA) AP (mm): 4.9 LEFT Mid Basilic V (UA) AP (mm): 5.9 LEFT Distal Basilic V (UA) AP (mm): 3.8 LEFT Prox Basilic V (FA) AP (mm): 2.9 LEFT Mid Basilic V (FA) AP (mm): 2.7 LEFT Distal Basilic V (FA) AP (mm): 1.9 LEFT Prox Cephalic V (UA) AP (mm): 5.7 LEFT Mid Cephalic V (UA) AP (mm): 5.1 LEFT Distal Cephalic V (UA) AP (mm): 5.2 LEFT Prox Cephalic V (FA) AP (mm): 1.2 LEFT Mid Cephalic V (FA) AP (mm): 1.7 LEFT Distal Cephalic V (FA) AP (mm): 1.6 Report Signatures Finalized by Aaron Hein MD, RPVI on 03/16/2025 11:14 AM us Alexei Salomon MD CV VASCULAR ORDERABLES Final R esult Performing Organization Address City/[facility]/ZIP Co de Phone Number FUJI SYNAPSE CV * Gold Top (03/14/2025 11:28 AM EDT) Extra Tube Hold for add-ons. 03/14/2025 3:59 PM EDT [facility] Comment:Auto resulted. Blood BLOOD SPECIMEN / Unknown Venipuncture / Unknown 03/14/2025 11:28 AM EDT 03/14/2025 11:32 AM EDT us Elaine Macdonald MD LAB BLOOD ORDERABLES Fin al Result [facility] [address] [place] [address] * Chao Top (03/14/2025 11:28 AM EDT) Extra Tube Hold for add-ons. 03/14/2025 1:58 PM EDT [facility] Comment:Auto resulted. Blood BLOOD SPECIMEN / Unknown Venipuncture / Unknown 03/14/2025 11:28 AM EDT 03/14/2025 11:32 AM EDT us Elaine Macdonald MD LAB BLOOD ORDERABLES Fin al Result [facility] [address] [place] [address] * [place] Top (03/14/2025 11:28 AM EDT) Blood BLOOD SPECIMEN / Unknown Venipuncture / Unknown 03/14/2025 11:28 AM EDT 03/14/2025 11:32 AM EDT Elaine Macdonald MD LAB BLOOD ORDERABLES Fin al Result [facility] [address] [place] [address] * (ABNORMAL) Chem 7 (03/14/2025 11:28 AM EDT) Sodium 139 135 - 145 mmol/L 03/14/2025 12:09 PM [facility] Potassium 3.8 3.5 - 5.1 mmol/L 03/14/2025 12:09 PM [facility] Chloride 102 98 - 108 mmol/L 03/14/2025 12:09 PM [facility] Bicarbonate 25 21 - 32 mmol/L 03/14/2025 12:09 PM [facility] Anion Gap 16 10 - 20 mmol/L 03/14/2025 12:09 PM [facility] Glucose 100(H) 65 - 99 mg/dL 03/14/2025 12:09 PM [facility] BUN 20 8 - 25 mg/dL 03/14/2025 12:09 PM [facility] Creatinine 1.12 0.80 - 1.30 mg/dL 03/14/2025 12:09 PM [facility] eGFR 64 >=60 mL/min/1.7 3 m2 03/14/2025 12:09 PM [facility] Comment:Estimated GFR was ca lculated using the 2020 CKD-EPI creatinine equation. BUN/Creatinine Ratio 17.9 10.0 - 20.0 03/14/2025 12:09 PM EDT [facility] Blood BLOOD SPECIMEN / Unknown Venipuncture / Unknown 03/14/2025 11:28 AM EDT 03/14/2025 11:32 AM EDT [facility] - 03/14/2025 12:09 PM EDT [facility] has implemented the eGFR calculation approach that does not have a coefficient for race that conforms to the NKF-ASN Task Force Recommendations. Dashawn Stallings PA-C LAB BLOOD ORDERABLES F inal Result [facility] [address] [place] [address] * (ABNORMAL) CBC Auto Differential (03/14/2025 11:28 AM EDT) WBC 3.50(L) 4.50 - 11.00 K/mcL 03/14/2025 12:15 PM EDT [facility] RBC 4.34(L) 4.50 - 5.90 M/mcL 03/14/2025 12:15 PM [facility] Hemoglobin 13.2(L) 13.5 - 17.5 g/dL 03/14/2025 12:15 PM [facility] Hematocrit 39.3(L) 41.0 - 53.0 % 03/14/2025 12:15 PM [facility] MCV 90.6 80.0 - 100.0 fL 03/14/2025 12:[facility] MCH 30.4 26.0 - 34.0 pg 03/14/2025 12:15 PM [facility] MCHC 33.6 31.0 - 37.0 g/dL 03/14/2025 12:15 PM [facility] Platelets 173 150 - 400 K/mcL 03/14/2025 12:15 PM [facility] RDW - CV 13.5 11.6 - 14.8 % 03/14/2025 12:15 PM [facility] MPV 9.3(L) 9.4 - 12.4 fL 03/14/2025 12:15 PM [facility] Neutrophils 54.0 % 03/14/2025 12:15 PM [facility] Comment:Peripheral smear rev iewed manually Lymphocytes 18.6 % 03/14/2025 12:15 PM [facility] Monocytes 23.1 % 03/14/2025 12:15 PM [facility] Eosinophils 3.4 % 03/14/2025 12:15 PM [facility] Basophils 0.6 % 03/14/2025 12:15 PM [facility] IG Percent 0.30 % 03/14/2025 12:15 PM [facility] Comment:The IG parameter is the percentage of metamyelocytes, myelocytes and promyelocytes. An immature granulocyte count (IG) of 1% or more suggests the possibility of infection, an IG count of 3% is very likely related to an infection. Neutrophils Abs 1.89 1.70 - 7.00 K/mcL 03/14/2025 12:15 PM [facility] Lymphocytes Abs 0.65(L) 0.90 - 4.00 K/mcL 03/14/2025 12:15 PM [facility] Monocytes Abs 0.81 0.30 - 0.90 K/mcL 03/14/2025 12:15 PM [facility] Eosinophils Abs 0.12 0.00 - 0.50 K/mcL 03/14/2025 12:15 PM [facility] Basophils Abs 0.02 0.00 - 0.30 K/mcL 03/14/2025 12:15 PM [facility] IG Absolute 0.01 0.00 - 0.30 K/mcL 03/14/2025 12:15 PM [facility] Nucleated RBC 0.0 % 03/14/2025 12:15 PM [facility] Nucleated RBC Abs 0.00 0.00 - 0.00 K/mcL 03/14/2025 12:15 PM [facility] Blood BLOOD SPECIMEN / Unknown Venipuncture / Unknown 03/14/2025 11:28 AM EDT 03/14/2025 11:32 AM EDT us Dashawn Stallings PA-C LAB BLOOD ORDERABLES F inal Result [facility] [address] [place] [address] * Ultrasound duplex arterial leg right (03/14/2025 9:15 AM EDT) 03/14/2025 8:20 AM EDT Narrative FUJI SYNAPSE CV - 03/14/2025 11:57 AM EDT Patient Info Name: Tristin Gray Age: 85 years : 1940 Gender: Male Exam Date: 03/14/2025 8:20 AM Patient Status: OUTPATIENT Site Location: [facility] Indications I73.9 - Peripheral vascular disease, unspecified Procedure Description 98865 Duplex scan of lower extremity arteries or arterial bypass grafts using B-mode, color and spectral Doppler; unilateral or limited study. Field Sales Consultant: Ernestina Campos RVT, [facility] Staff Ordering Physician: Gracy Millan MD, RPVI Conclusions * 50-99% stenosis in the right mid superficial femoral artery. * Unable to obtain right external iliac artery images due to bandaging from recent procedure. Risk Factors Patient with a history of hypertension, hyperlipidemia, CAD and PAD. Measurements RIGHT CLIENT ACCOUNT ASSISTANT PSV (cm/s): 115 RIGHT CLIENT ACCOUNT ASSISTANT EDV (cm/s): 7 RIGHT Prox PFA PSV (cm/s): 100 RIGHT Prox PFA EDV (cm/s): 4 RIGHT Prox SFA PSV (cm/s): 113 RIGHT Prox SFA EDV (cm/s): 0 RIGHT Mid SFA PSV (cm/s): 153 RIGHT Mid SFA EDV (cm/s): 0 RIGHT Mid SFA Pre-PSV (cm/s): 58 RIGHT Mid SFA Ratio: 2.6 RIGHT Distal SFA PSV (cm/s): 51 RIGHT Distal SFA EDV (cm/s): 3 RIGHT Prox Jessy PSV (cm/s): 43 RIGHT Prox Jessy EDV (cm/s): 7 RIGHT Distal Jessy PSV (cm/s): 25 RIGHT Distal Jessy EDV (cm/s): 1 RIGHT Prox LAUREL PSV (cm/s): 28 RIGHT Prox LAUREL EDV (cm/s): 4 RIGHT Mid LAUREL PSV (cm/s): 28 RIGHT Mid LAUREL EDV (cm/s): 10 RIGHT Distal LAUREL PSV (cm/s): 20 RIGHT Distal LAUREL EDV (cm/s): 6 RIGHT Prox SAFETY AND OCCUPATIONAL HEALTH MANAGER PSV (cm/s): 81 RIGHT Prox SAFETY AND OCCUPATIONAL HEALTH MANAGER EDV (cm/s): 14 RIGHT Mid SAFETY AND OCCUPATIONAL HEALTH MANAGER PSV (cm/s): 38 RIGHT Mid SAFETY AND OCCUPATIONAL HEALTH MANAGER EDV (cm/s): 6 RIGHT Distal SAFETY AND OCCUPATIONAL HEALTH MANAGER PSV (cm/s): 57 RIGHT Distal SAFETY AND OCCUPATIONAL HEALTH MANAGER EDV (cm/s): 20 RIGHT Prox Gabriela PSV (cm/s): 46 RIGHT Prox Gabriela EDV (cm/s): 12 RIGHT Mid Gabriela PSV (cm/s): 52 RIGHT Mid Gabriela EDV (cm/s): 18 RIGHT Distal Gabriela PSV (cm/s): 59 RIGHT Distal Gabriela EDV (cm/s): 20 Measurements RIGHT YAMILE Index: 0.50 LEFT YAMIEL Index: 0.55 Prior Interventions 09/07/2018 Bypass graft - Left femoral - peroneal. Report Signatures Finalized by Radha Lomas DO, RVT, NATANAEL, FS on 03/14/2025 11:57 AM Procedure Note Radha Lomas DO - 03/14/2025 Patient Info Name: Tristin Gray Age: 85 years : 1940 Gender: Male Exam Date: 03/14/2025 8:20 AM Patient Status: OUTPATIENT Site Location: [facility] Indications I73.9 - Peripheral vascular disease, unspecified Procedure Description 05022 Duplex scan of lower extremity arteries or arterial bypassgrafts using B-mode, color and spectral Doppler; unilateral or limited study. Field Sales Consultant: Ernestina Campos RVT, RDNC Staff Ordering Physician: Gracy Millan MD, RPLUIZA Conclusions * 50-99% stenosis in the right mid superficial femoral artery. * Unable to obtain right external iliac artery images due to bandagingfrom recent procedure. Risk Factors Patient with a history of hypertension, hyperlipidemia, CAD and PAD. Measurements RIGHT CLIENT ACCOUNT ASSISTANT PSV (cm/s): 115 RIGHT CLIENT ACCOUNT ASSISTANT EDV (cm/s): 7 RIGHT Prox PFA PSV (cm/s): 100 RIGHT Prox PFA EDV (cm/s): 4 RIGHT Prox SFA PSV (cm/s): 113 RIGHT Prox SFA EDV (cm/s): 0 RIGHT Mid SFA PSV (cm/s): 153 RIGHT Mid SFA EDV (cm/s): 0 RIGHT Mid SFA Pre-PSV (cm/s): 58 RIGHT Mid SFA Ratio: 2.6 RIGHT Distal SFA PSV (cm/s): 51 RIGHT Distal SFA EDV (cm/s): 3 RIGHT Prox Jessy PSV (cm/s): 43 RIGHT Prox Jessy EDV (cm/s): 7 RIGHT Distal Jessy PSV (cm/s): 25 RIGHT Distal Jessy EDV (cm/s): 1 RIGHT Prox LAUREL PSV (cm/s): 28 RIGHT Prox LUAREL EDV (cm/s): 4 RIGHT Mid LAUREL PSV (cm/s): 28 RIGHT Mid LAUREL EDV (cm/s): 10 RIGHT Distal LAUREL PSV (cm/s): 20 RIGHT Distal LAUREL EDV (cm/s): 6 RIGHT Prox SAFETY AND OCCUPATIONAL HEALTH MANAGER PSV (cm/s): 81 RIGHT Prox SAFETY AND OCCUPATIONAL HEALTH MANAGER EDV (cm/s): 14 RIGHT Mid SAFETY AND OCCUPATIONAL HEALTH MANAGER PSV (cm/s): 38 RIGHT Mid SAFETY AND OCCUPATIONAL HEALTH MANAGER EDV (cm/s): 6 RIGHT Distal SAFETY AND OCCUPATIONAL HEALTH MANAGER PSV (cm/s): 57 RIGHT Distal SAFETY AND OCCUPATIONAL HEALTH MANAGER EDV (cm/s): 20 RIGHT Prox Gabriela PSV (cm/s): 46 RIGHT Prox Gabriela EDV (cm/s): 12 RIGHT Mid Gabriela PSV (cm/s): 52 RIGHT Mid Gabriela EDV (cm/s): 18 RIGHT Distal Gabriela PSV (cm/s): 59 RIGHT Distal Gabriela EDV (cm/s): 20 Measurements RIGHT YAMILE Index: 0.50 LEFT YAMILE Index: 0.55 Prior Interventions 09/07/2018 Bypass graft - Left femoral - peroneal. Report Signatures Finalized by Radha Lomas DO, RVT, RPVI, FSVM on 07/18/481631:57 AM us Gracy Millan MD CV VASCULAR ORDERABLES Fin al Result FUJI SYNAPSE CV * ELECTROPHYSIOLOGY REPORT (03/12/2025) 03/12/2025 us Gracy Millan MD SCANNED ORDERS Final Resu lt from Last 3 Months Insurance [id number] (Home) [address] [place] [id number] [facility] ADVANTAGE CHOICE PPO Advance Directives For more information, please contact: [phone] Documents on File Type Date Recorded Patient Direct Response Consultant Expl anation Power of Blow Pit Helper 10/13/2018 9:03 PM RECEI SKIP 10/13/2018 * Full Code (Latest Code Status on File) Date Activated Date Inactivated Comments 03/14/2025 5:44 PM 03/21/2025 8:44 PM * Full Code Date Activated Date Inactivated Comments 03/14/2025 2:54 PM 03/14/2025 5:44 PM * Full Code Date Activated Date Inactivated Comments 11/03/2022 10:28 PM 11/08/2022 4:33 PM * Full Code - Unverified Date Activated Date Inactivated Comments 04/15/2022 12:22 AM 04/15/2022 10:55 PM * Full Code Date Activated Date Inactivated Comments 01/19/2022 12:09 AM 01/21/2022 5:56 PM Care Teams Deputy Clerk Of Superior Court Relationship Specialty Start Date End Date Nikko Bird MD [address] [place] [address] PCP - General Family Medicine 09/04/18 System, Provider Not In Veneer Sorter 11/09/22
--- OUTSIDE RECORDS SUMMARY | 2025-04-15 12:57 | XMS_ITS | Encounter Summary ---
Author Organization [facility] Address [address] [place] [address] Care Team Providers Care Medical Program Specialist Name Role Phone Nikko Bird MD Unavailable Nikko Bird MD Primary Care Provider [phone], Mary PODOPEDIATRICIAN Unavailable [phone] Lorraine Morgan RN Unavailable Saab, Elaine PODOPEDIATRICIAN Unavailable Encounter Details Date Type Department Care Team (Late Contact Info) Description 05/14/2024 Abstract [facility] [place] [facility] [address] [place] [address] Nikko Bird MD [address] [place], [place] [address] Social History Tobacco Use Types Packs/Day Years [...] CI PODIATRY [address] [place] [address] Emmanuel Gonzalez DPM 3006 [facility] 5 [place] [address] documented as of this encounter Visit Diagnoses Not on filedocumented in this encounter Additional Health Concerns Assessment Noted Time PHQ-9 Depression Total Score: 0 04/26/20 24 9:00 AM EDT documented as of this encounter Care Teams Medical Program Specialist Relationship Specialty Start Date End Date Nikko Bird MD [address] [facility] 110 [place] [address] PCP - Humana 08/28/17 Nikko Bird MD [address] [facility] 110 [place] [address] PCP - General Family Medicine 03/09/23MondayMary LPN [address] [facility] 110 [place] [address] Licensed Practical Nurse Family Medicine 06/21/24 Lorraine Morgan, RN [address] [place] [address] Licensed Practical Nurse Family Medicine 10/04/2411/15 Elaine Saab LPN [address] [facility] 110 [place] [address] 11/15/24 documented as of this encounter
--- OUTSIDE RECORDS SUMMARY | 2025-04-15 12:57 | XMS_ITS ---
Author Organization [facility] Address [address] [place] [address] Care Team Providers Care Laborer Ammunition Assembly Name Role Phone Nikko Bird MD Unavailable Nikko Bird MD Primary Care Provider [phone] Elaine Saab LPN Unavailable 30 Day Monitoring Program Status:Enrolled (Active) Start date:03/24/2025 Enrollment date:03/24/2025 Case Team Name Relationship Phone Elaine Saab LPN(Responsible Staff) [phone] Continued Care and Services Coordination
--- OUTSIDE RECORDS SUMMARY | 2025-04-15 12:57 | XMS_ITS | Encounter Summary ---
Author Organization [facility] Address [address] [place] [address] Care Team Providers Care Supervisor Fish Bait Processing Name Role Phone Nikko Bird MD Unavailable Nikko Bird MD Primary Care Provider [phone], Mary MUSEUM REGISTRAR Unavailable [phone] Lorraine Morgan RN Unavailable [phone] Saab, Elaine MUSEUM REGISTRAR Unavailable Encounter Details Date Type Department Care Team (Late Contact Info) Description 05/14/2024 Abstract [facility] [place] [facility] [address] [place] [address] Nikko Bird MD [address] [place], [place] [address] Social History Tobacco Use Types Packs/Day Years [...] CI PODIATRY [address] [place] [address] Emmanuel Gonzalez DPM 3006 [facility] 5 [place] [address] documented as of this encounter Visit Diagnoses Not on filedocumented in this encounter Additional Health Concerns Assessment Noted Time PHQ-9 Depression Total Score: 0 04/26/20 24 9:00 AM EDT documented as of this encounter Care Teams Supervisor Fish Bait Processing Relationship Specialty Start Date End Date Nikko Bird MD [address] [facility] 110 [place] [address] PCP - Humana 08/28/17 Nikko Bird MD [address] [facility] 110 [place] [address] PCP - General Family Medicine 03/09/23MondayMary LPN [address] [facility] 110 [place] [address] Licensed Practical Nurse Family Medicine 06/21/24 Lorraine Morgan, RN [address] [place] [address] Licensed Practical Nurse Family Medicine 10/04/2411/15 Elaine Saab LPN [address] [facility] 110 [place] [address] 11/15/24 documented as of this encounter
--- OUTSIDE RECORDS SUMMARY | 2025-04-15 12:57 | XMS_ITS | Encounter Summary ---
Author Organization [facility] Address [address] [place] [address] Care Team Providers Care Firestopper Technician Name Role Phone Nikko Bird MD Unavailable Nikko Bird MD Primary Care Provider [phone], Mary LOWER SCHOOL SPANISH TEACHER Unavailable [phone] Lorraine Morgan RN Unavailable [phone] Saab, Elaine LOWER SCHOOL SPANISH TEACHER Unavailable Encounter Details Date Type Department Care Team (Late Contact Info) Description 10/12/2023 Abstract [facility] [place] [facility] [address] [place] [address] Nikko Bird MD [address] [place], [place] [address] Social History Tobacco Use Types Packs/Day Years [...] CI PODIATRY [address] [place] [address] Emmanuel Gonzalez, TIFFANYM [address] [facility] 5 [place] [address] documented as of this encounter Visit Diagnoses Not on filedocumented in this encounter Care Teams Firestopper Technician Relationship Specialty Start Date End Date Nikko Bird MD [address] [facility] 110 [place] [address] PCP - Humana 08/28/17 Nikko Bird MD 112 [facility] 110 [place] [address] PCP - General Family Medicine 03/09/23MondayMary LPN [address] [facility] 110 [place] [address] Licensed Practical Nurse Family Medicine 06/21/24 Lorraine Morgan, KULDEEP [address] [place] [address] Licensed Practical Nurse Family Medicine 10/04/2411/15 Elaine Saab LPN 112 [facility] 110 [place] [address] 11/15/24 documented as of this encounter
--- OUTSIDE RECORDS SUMMARY | 2025-04-15 12:57 | XMS_ITS | Encounter Summary ---
Author Organization [facility] Address [address] [place] [address] Care Team Providers Care Identification Technician Name Role Phone Nikko Bird MD Unavailable Nikko Bird MD Primary Care Provider [phone], Mary WRIGHTN Unavailable [phone] Lorraine Morgan RN Unavailable [phone] Saab, Elaine PARAFFIN PLANT SWEATER OPERATOR Unavailable Encounter Details Date Type Department Care Team (Late st Contact Info) Description 07/10/2024 Abstract [facility] [place] [facility] [address] [facility] 110 [place] [address] Nikko Bird MD 112 [facility] 110 [place] [address] Social History Tobacco Use Types Packs/Day Years [...] Recorded Patient Health Questionnaire-2 Score 0 04/26/2024 [facility] of Occupat ional Health - Occupational [...] BRIGID PODIATRY [address] [place] [address] Emmanuel Gonzalez DPM 3006 [facility] 5 [place] [address] documented as of this encounter Visit Diagnoses Not on filedocumented in this encounter Additional Health Concerns Assessment Noted Time PHQ-9 Depression Total Score: 0 04/26/20 9:00 AM EDT documented as of this encounter Care Teams Identification Technician Relationship Specialty Start Date End Date Nikko Bird MD [address] [place] [address] PCP - Humana 08/28/17 Nikko Bird MD [address] [place] [address] PCP - General Family Medicine 03/09/23MondayMary LPN [address] [place] [address] Licensed Practical Nurse Family Medicine 06/21/24 Lorraine Morgan, KULDEEP [address] [place] [address] Licensed Practical Nurse Family Medicine 10/04/2411/15 Elaine Saab LPN 112 [facility] 110 [place] [address] 11/15/24 documented as of this encounter
--- OUTSIDE RECORDS SUMMARY | 2025-04-15 12:57 | XMS_ITS | Encounter Summary ---
Author Organization [facility] Address [address] [place] [address] Care Team Providers Care Back Tender Insulation Board Name Role Phone Nikko Bird MD Unavailable Nikko Bird MD Primary Care Provider [phone], Mary CORPORATE RECEPTIONIST Unavailable [phone], Mary CORPORATE RECEPTIONIST Unavailable [phone] Lorraine Morgan RN Unavailable Elaine Saab CORPORATE RECEPTIONIST Unavailable Encounter Details Date Type Department Care Team (Late st Contact Info) Description 06/26/2023 Abstract [facility] [place] [facility] [address] [facility] 110 [place] [address] Nikko Bird MD [address] [facility] 110 [place] [id number] Social History Tobacco Use Types Packs/Day Years [...] CI PODIATRY [address] [place] [address] Emmanuel Gonzalez, DPM 3006 [facility] 5 [place] [address] documented as of this encounter Visit Diagnoses Not on filedocumented in this encounter Care Teams Back Tender Insulation Board Relationship Specialty Start Date End Date Nikko Bird MD [address] [place] [address] PCP - Humana 08/28/17 Nikko Bird MD [address] [place] [address] PCP - General Family Medicine 03/09/23MondayMary LPN [address] [place] [address] Licensed Practical Nurse Family Medicine 09/21/2309/21Mary LPN [address] [place] [address] Licensed Practical Nurse Family Medicine 06/21/24 Lorraine Morgan, RN [address] [place] [address] Licensed Practical Nurse Family Medicine 10/04/2411/15 Elaine Saab LPN [address] [place] [address] 11/15/24 documented as of this encounter
== END 2025-04-15 12:50 | disposition home or self-care (01) ==
LOC: WC 12:49
PROVIDERS: PCP Family Medicine; Visit Provider Physician Assistant
DX: M86.171 Other acute osteomyelitis, right ankle and foot (principal); L97.519 Non-pressure chronic ulcer of other part of right foot with unspecified severity; M86.9 Osteomyelitis, unspecified; I70.261 Atherosclerosis of native arteries of extremities with gangrene, right leg; L97.516 Non-pressure chronic ulcer of other part of right foot with bone involvement without evidence of necrosis
CPT/HCPCS: 73630; G0463

== ENCOUNTER 2025-04-15 13:30 | Outpatient (OUT) | payer MEDICARE, SELFPAY ==
[2025-04-15 13:51] LABS: Hematocrit 35.1 % (42.0-54.0); Hemoglobin 11.8 g/dL (14.0-18.0); Immature Granulocytes Abs Auto 0.02 10^3/uL (0.00-0.03); Immature Granulocytes Pct Auto 0.6 % (0.0-0.5); Lymphocytes Absolute Auto 0.8 10^3/uL (1.2-3.8); Mean Corpuscular HGB Conc 33.6 g/dL (29.9-35.2); Mean Corpuscular Hemoglobin 31.2 pg (25.9-34.0); Mean Corpuscular Volume 92.9 fL (80.0-94.0); Platelet Count 158 10^3/uL (150-450); Red Blood Count 3.78 10^6/uL (4.70-6.10); White Blood Count 3.2 10^3/uL (4.0-11.0)
[2025-04-15 14:19] LABS: Anion Gap 10.4; Blood Urea Nitrogen 20.0 mg/dL (7.0-18.0); Calcium 9.2 mg/dL (8.5-10.1); Carbon Dioxide 26.1 mmol/L (21.0-32.0); Chloride 107 mmol/L (98-107); Estimated GFR (African America 55 (>=60 mL/min/1.73m^2); Estimated GFR (Non-African Ame 45 (>=60 mL/min/1.73m^2); Glucose 106 mg/dL (74-106); Potassium 4.5 mmol/L (3.5-5.1); Sodium 139 mmol/L (136-145)
== END 2025-04-15 13:31 | disposition home or self-care (01) ==
LOC: LAB 13:31
PROVIDERS: PCP Family Medicine; Visit Provider Physician Assistant
DX: M20.5X1 Other deformities of toe(s) (acquired), right foot (principal); M86.8X9 Other osteomyelitis, unspecified sites
CPT/HCPCS: 36415; 80048; 85025; 85652; 86140

== ENCOUNTER 2025-04-15 13:32 | Outpatient (OUT) | payer MEDICARE, SELFPAY ==
--- OUTSIDE RECORDS SUMMARY | 2025-04-02 12:00 | XMS_ITS | Encounter Summary ---
Author Organization [facility] Address [address] [place] [address] Care Team Providers Care Loan Closer Name Role Phone Nikko Bird MD Primary Care Provider [phone] System, Provider Not In Unavailable Unavaila ble Reason for Visit * Reason Comments Follow-up FU - WOUND CHECK - s /p R FEM-TIB BYPASS, 03/17 - APPT PER KULDEEP ZELAYA Encounter Details Date Type Department Care Team (Late st Contact Info) Description 04/02/2025 12:00 PM EDT Follow-Up [facility] [address] [phone] Gracy Millan MD [facility] [address] Critical lower limb ischemia (HCC) (Primary Dx) Social History Tobacco Use Types Packs/Day Years Used Date Smoking Tobacco: Never Smokeless Tobacco: Never Alcohol Use Standard Drinks/Week Comments Not Currently 0 (1 standard drink = 0.6 oz pur e alcohol) [facility] Utilities Answer Date Recorded In the past [...] any time in the past 12 m [facility], were you homeless or living in a longterm (including now)? No 03/14/2025 Sex and Gender [...] Info) Description 04/23/2025 1:00 PM EDT Appointment [facility] [address] [place] [address] Gracy Millan MD [address] [facility] [address] [place] [address] 04/23/2025 2:00 PM EDT Appointment [facility] [address] [place] [address] Gracy Millan MD [address] [facility] [address] [place] [address] 04/23/2025 3:15 PM EDT Follow-Up [facility] [address] [facility] [address] [place] [phone] Gracy Millan MD [facility]5 [facility] [address] [place] [address] documented as of this encounter Visit Diagnoses Diagnosis Critical lower limb ischemia (HCC)- Primary Unspecified circulatory system disorder documented in this encounter Additional Health Concerns Assessment Noted Time PHQ-2 Depression Total Score: 0 03/15/20 25 8:30 PM EDT documented as of this encounter Care Teams Loan Closer Relationship Specialty Start Date End Date Nikko Bird MD [address] [place] [id number] PCP - General Family Medicine 09/04/18 System, Provider Not In Integration Developer 11/09/22 documented as of this encounter
--- OUTSIDE RECORDS SUMMARY | 2025-04-08 11:30 | XMS_ITS | Encounter Summary ---
Author Organization [facility] Healthcare Address [address] [place] [address] Care Team Providers Care Manager Training Name Role Phone Nikko Bird MD Unavailable Nikko Bird MD Primary Care Provider [phone] Elaine Saab LPN Unavailable Reason for Referral * Home Health (Stat) - Authorized Specialty Diagnoses / Procedures Referred By Jason christie Referred To Contact Home Health Services Diagnoses Ischemic toe ulcer, right, with 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) Zoë King PA [address] [facility] [address] [place] [address] Phone: tel: fax: [facility] [phone] [facility] [address] [place] [address] fax: Referral ID Status Reason Start Date Expiration Date Visits Requested Visits Authorized [id number] Authorized Specialty Services Required 04/08/2025 06/07/[phone] Scheduling Instructions Please call pt to schedule. Believes he is currently using [facility] (not currently for wound care) * Consultation (Stat) - Closed Specialty Diagnoses / Procedures Referred By Jason christie Referred To Contact Podiatry Diagnoses PVD (peripheral vascular disease) with claudication Ischemic toe ulcer, right, with 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) Procedures OK OFFICE/OUTPATIENT NEW HIGH MDM 60 MINUTES Zoë King PA [address] [facility] [address] [place] [address] Phone: tel: fax: Emmanuel Gonzalez DPM [address] [facility] [address] [place] [address] Phone: tel: fax: Referral ID Status Reason Start Date Expiration Date V isits Requested Visits Authorized [id number] Closed Specialty Services Required 04/08/2025 10/05/2025 1 1 Scheduling Instructions Please call pt to schedule. Soonest appt preferred. Ok to change to [facility] if appointment available sooner. Encounter Details Date Type Department Care Team (Late st Contact Info) Description 04/08/2025 11:30 AM EDT Office Visit JAE [place] 112 [facility] [address] [place] [id number] Zoë King PA [address] [facility] [address] [place] [address] PVD (peripheral vascular disease) with claudication (Primary Dx); Acquired absence of left foot (HCC); Ischemic toe ulcer, right, with 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) Social History Tobacco Use Types Packs/Day Years Used Date Smoking Tobacco: Never Smokeless Tobacco: Never Alcohol Use Standard Drinks/Week Comments Not Currently 0 (1 standard drink = 0.6 oz pur e alcohol) Coffee 1-2 cups per day B1300 Health Literacy Answer Date Recor ded How often do you need to hav e someone help you when you read instructions, pamphlets, or other written material from your doctor or pharmacy? Rarely 06/21/2024 Humiliation, Afraid, Rape, and Kick questionnair e Answer Date Recorded Within the last year, have y ou been afraid of your partner or ex-partner? No 06/21/2024 Within the last year, have y ou been humiliated or emotionally abused in other ways by your partner or ex-partner? No Within the last year, have y ou been kicked, hit, slapped, or otherwise physically hurt by your partner or ex-partner? No 06/21/2024 Within the last year, have y ou been raped or forced to have any kind of sexual activity by your partner or ex-partner? No 06/21/2024 AUDIT-C Answer Date Recorded Q1: How often do you have a drink containing alcohol? Never 06/21/2024 Q2: How many drinks containi ng alcohol do you have on a typical day when you are drinking? Patient does not drink Q3: How often do you have si x or more drinks on one occasion? Never 06/21/2024 Overall Financial Resource Strain (CARDIA) Answe r Date Recorded How hard is it for you to pa y for the very basics like food, housing, medical care, and heating? Not hard at all 06/21/2024 PHQ-2 Answer Date Recorded Patient Health Questionnaire-2 Score 0 04/08/2025 [facility] - Occupational Stress Questionnaire Answer Date Recorded Do you feel stress - tense, restless, nervous, or anxious, or unable to sleep at night because your mind is troubled all the time - these days? Not at all 06/21/2024 Exercise Vital Sign Answer Date Recorde d On average, how many days pe r week do you engage in moderate to strenuous exercise (like a brisk walk)? 7 days 06/21/2024 On average, how many minutes do you engage in exercise at this level? 10 min 06/21/2024 Hunger Vital Sign Answer Date Recorded Within the past 12 months, y ou worried that your food would run out before you got the money to buy more. Never true 06/21/20 24 Within the past 12 months, t he food you bought just didn't last and you didn't have money to get more. Never true 06/21/2024 PRAPARE - Transportation Answer Date Re corded In the past 12 months, has l ack of transportation kept you from medical appointments or from getting medications? No 05/29 In the past 12 months, has l ack of transportation kept you from meetings, work, or from getting things needed for daily living? No 06/21/2024 Housing Stability Vital Sign Answer Michael e Recorded In the last 12 months, was t here a time when you were not able to pay the mortgage or rent on time? No 06/21/2024 In the past 12 months, how m any times have you moved where you were living? 0 06/21/2024 At any time in the past 12 m [facility], were you homeless or living in a jail (including now)? No 06/21/2024 Sex and Gender Information Value Date Recorded Sex Assigned at Not on file Legal Sex Male 7:18 PM EDT Gender Identity Not on file Sexual Orientation Not on file documented as of this encounter Last Filed Vital Signs Vital Sign Reading Time Taken Comments Blood Pressure 146/68 04/08/2025 11:29 AM EDT Pulse 70 04/08/2025 11:29 AM EDT Temperature - - Respiratory Rate 18 04/08/2025 11:29 AM EDT Oxygen Saturation 98% 04/08/2025 11:29 AM EDT Inhaled Oxygen Concentration - - Weight 111 kg (244 lb 3.2 oz) 04/08/2025 11:29 A M EDT Height 188 cm (6' 2 ) 04/08/2025 11:29 AM EDT Body Mass Index 31.35 04/08/2025 11:29 AM EDT documented in this encounter Functional Status * Over the past 2 weeks, how often have you been bothered by any of the following problems? Question Answer Date of Assessment Author Little interest or pleasure in doing things Not at all 04/08/2025 11:20 AM EDT Wendy Tubbs L PN Feeling down, depressed, or hopeless Not at all 04/08/2025 11:20 AM EDT Wendy Tubbs L PN Patient Health Questionnaire -2 Score 0 04/08/2025 11:20 AM EDT Wendy Tubbs L PN documented as of this encounter Progress Notes * LEONARDA Villavicencio - 04/08/2025 11:30 AM EDT Images from the original note were not included. Subjective Patient ID: Tristin Gray is a 85 y.o. male who presents for possible infected toe. Tristin is present today for evaluation of possible infected toe. Admits right foot great toe is red,swollen, painful. He states he went in for a vein bypass about 10 days ago in his right leg and when he came out of surgery his toe was blue and last Yang his toenail came off. He also has discoloration in his 3rd toenail also. States he feels it is improving since the toenail came off. States Gracy Millan did see his toe, but the toenail was still on at the time. Sees her next on the . Over the past 2 weeks, how often have you been bothered by any of the following problems? Little interest or pleasure in doing things: Not at all Feeling down, depressed, or hopeless: Not at all Patient Health Questionnaire-2 Score: 0 Current Outpatient Medications on File Prior to Visit Medication Sig Dispense Refill albuterol HFA 90 mcg/act inhaler Inhale 1 puff every 4 (four) hours if needed for wheezing or shortness of breath 76.5 Unspecified 3 aspirin 81 MG EC tablet Take 81 mg by mouth in the morning. atorvastatin (Lipitor) 80 MG tablet Azelastine HCl 137 MCG/SPRAY solution Administer 1 spray into affected nostril(s) in the morning and 1 spray before bedtime. Do all this for 14 days. 90 mL 3 fluticasone (Flonase) 50 MCG/ACT nasal spray Administer 1 spray into each nostril Daily Shake gently. Before first use, prime pump. After use, clean tip and replace cap. 48 g 3 furosemide (Lasix) 20 MG tablet TAKE 1 TABLET EVERY MORNING 90 tablet 3 ipratropium-albuterol (Duo-Neb) 0.5-2.5 mg/3 mL nebulizer solution Take 3 mL by nebulization in themorning and 3 mL in the evening and 3 mL before bedtime. losartan (Cozaar) 50 MG tablet Take 1 tablet (50 mg) by mouth Daily 100 tablet 3 Menthol-Zinc Oxide (Calmoseptine) 0.44-20.6 % ointment Apply 1 Application topically every 6 (six) hours if needed (Barrier Cream) 100 g 3 metoprolol tartrate (Lopressor) 50 MG tablet Take 1 tablet (50 mg) by mouth in the morning and 1 tablet (50 mg) before bedtime. 180 tablet 3 nitroglycerin (Nitrostat) 0.[address] 1 tablet (0.4 mg) under the tongue every 5 (five) minutes if needed for chest pain 90 tablet 1 omeprazole (PriLOSEC) [address] capsule TAKE 1 CAPSULE EVERY DAY 90 capsule 3 [] ondansetron ODT (Zofran-ODT) 4 MG disintegrating tablet Take 1 tablet (4 mg) by mouth every 8 (eight) hours if needed for nausea or vomiting for up to 7 days 20 tablet 0 oxyCODONE-acetaminophen (Percocet) 5-325 MG tablet Take 1 tablet by mouth every 6 (six) hours if needed for severe pain or moderate pain 120 tablet 0 rivaroxaban (Xarelto) 2.5 MG tablet TAKE 1 TABLET TWICE DAILY 200 tablet 3 tamsulosin (Flomax) 0.4 MG 24 hr capsule Take 1 capsule (0.4 mg) by mouth in the morning and 1 capsule (0.4 mg) before bedtime. 200 capsule 0 zolpidem (Ambien) 10 MG tablet Take 1 tablet (10 mg) by mouth as needed at bedtime for sleep 30 tablet 5 [DISCONTINUED] oxyCODONE-acetaminophen (Percocet) 5-325 MG tablet Take 1 tablet by mouth every 6 (six) hours if needed for severe pain or moderate pain 15 tablet 0 No current facility-administered medications on file prior to visit. I have reviewed and reconciled the history and medication list with the patient today. Allergies Allergen Reactions Doxycycline Unknown Gabapentin GI intolerance Social History Tobacco Use Smoking status: Never Smokeless tobacco: Never Vaping Use Vaping status: Never Used Substance Use Topics Alcohol use: Not Currently Comment: Coffee 1-2 cups per day Drug use: Never Family History Problem Relation Name Age of Onset Stroke Other Family history Past Medical History: Diagnosis Date Ankle fracture, left 2009 Avascular necrosis of bone of hip (HCC) 09/04/2011 Right hip Right hip CAD (coronary artery disease) 2013 Carotid artery disease Cataract 2014 Cellulitis 01/19/2022 [facility] Cellulitis LLE Colon polyps 2011 Critical lower limb ischemia ([facility]-HCC) 09/04/2018 Last Assessment & Plan: Pt s/p LLE angiogram with Dr Hahn who feels that the pt has no further endovascular options. He has consulted Dr. Millan for a possible tibial bypass. Pt s/p LLE critical limb ischemia Wilbarger class 4 rest pain with distal discoloration to histoes Gangrene of left foot (HCC) 10/04/2018 Groin hematoma 2014 RT Femoral groin Hematoma H/O myocardial perfusion scan 07/09/2019 LVEF 56% Myocardial perfusion imaging shows a defect in Apical wall Herpes zoster 09/04/2011 History of being hospitalized 12/06/2020 Strep Pneumonia, Resp. Failure - [facility] History of being hospitalized [place] - [facility] 07/15/2021-07/16/2021 History of coronary angiogram 01/19/2022 CT angiogram of aorta and Bilateral arteries: Right peroneal artery is now noted to be occluded proximally but reconstitutes and provides blood supply to right foot. Left Bypass patent, Stable subcentimeter hyperdense lesion seen in pancreatic tail History of CT scan of chest 01/05/2021 3.6 cm area of consolidation versus mass within the posterior left lung base, SMALLER than previously seen, no acute infiltrates, mild aneurysmal dilation of the ascending aorta History of CT scan of chest 02/08/2021 shows interval decrease insize of soft tissue attenuation in the medial basilar segment of the leftlower lobe. Scarring is favored. Recheck in [address] scan of chest 01/19/2022 New Irregular solid 1.6 cm lower lobe nodule that is suspicious for a developing lung cancer. Background emphysema. small to moderate sized hiatal hernia, mild fatty infiltration of liver History of Doppler ultrasound 04/14/2022 Venous Doppler Negative for DVT History of medical problems 01/07/2021 Normal Left ventricular systolic function, Grade II diastolic Dysfunction, mild aortic mitral and pulmonary regurgitation, severely dilated left atrium, normal right sided pressures History of medical problems 04/07/2021 No primary pharyngeal mucosal space mass or significant lymphadenopathy. No abscess formation History of medical problems 05/14/2021 Clearing of previously seen left lower opacity consistent with resolved infiltrate, chronic granulomatous disease, mild aneurysmal dilatation of the ascending aorta. History of medical problems 07/15/2021 Normal Ventricular Systolic Function, Grade !! DD, mild to moderate aortic regurgitation. Mild mitral, tricuspid and pulmonary regurgitation, mildly elevated right sided pressures, mild biatrial dilatation, mild right ventricular dilatation, mildly dilated aortic root. History of medical problems 01/31/2022 Mild Aneurysmal dilatation of the ascending aorta, 4.2 cm, Numerous calcified nodules-benign. Marked Atherosclerotic lung disease. 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 syndrome, CABGx3 Prostate cancer (HCC) 2009 SOB (shortness of breath) Unstable angina ([facility]) 2013 XR 06/18/2019 XR shows impingement to left shoulder with Osteophyte spur Past Surgical History: Procedure Laterality Date ANGIOPLASTY with stent ANGIOPLASTY 03/17/2025 SFA CARDIAC CATHETERIZATION CARDIAC SURGERY ECHO, Coronary Angiography, Percutaneous balloon angiography stent placement in LT & RT coronary artery CARPAL TUNNEL RELEASE Right 05/2020 CATARACT EXTRACTION W/ INTRAOCULAR LENS IMPLANT 2013 CERVICAL SPINE SURGERY 11/29/2019 julio huff COLONOSCOPY 03/16/2018 incomplete bowel prep Diverticulosis Dr. Rowe at [facility] COLONOSCOPY W/ POLYPECTOMY 2011 CORONARY ARTERY BYPASS GRAFT 11/09/2016 x3 CHAVEZ to diag, SVG to OM1, SVG to PDA CT ANGIOGRAM CHEST 12/17/2016 CT ANGIOGRAM CHEST 12/17/2016 FEMORAL BYPASS 09/07/2018 Left fem to peroneal bypass Dr. 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 Blockage OTHER SURGICAL HISTORY brachytherapy OTHER SURGICAL HISTORY open reduction internal fixation OTHER SURGICAL HISTORY 08/09/[address] Mayen OTHER SURGICAL HISTORY 04/25/2022 Diagnostic LE catheterization Dr. Hahn [place] MEDICATION MANAGEMENT 11/2020 Multi resistant Strep Pneumonia, susceptible Levaquin PROSTATE BIOPSY 2010 TOTAL HIP ARTHROPLASTY 07/15/2021 Direct anterior right total hip arthroplasty, periarticular injection, right hip fluoroscopy XA SPECIAL ANGIOGRAPHY PROCEDURE Bilateral 10/12/2023 Dr. Sanchez Visit Vitals BP 146/68 Pulse 70 Resp 18 Ht 6' 2 Wt 244 lb 3.2 oz SpO2 98% BMI 31.35 kg/m?? Smoking Status Never BSA 2.41 m?? Review of Systems Constitutional: Negative for chills, fatigue and fever. Respiratory: Negative for cough, shortness of breath and wheezing. Cardiovascular: Positive for leg swelling. Negative for chest pain and palpitations. Gastrointestinal: Negative for abdominal pain, constipation, diarrhea, nausea and vomiting. Musculoskeletal: Positive for arthralgias and gait problem. Skin: Positive for wound. Objective Physical Exam Constitutional: General: He is not in acute distress. Appearance: Normal appearance. HENT: Head: Normocephalic and atraumatic. Eyes: General: No scleral icterus. Cardiovascular: Rate and Rhythm: Normal rate and regular rhythm. Heart sounds: No murmur heard. Pulmonary: Effort: Pulmonary effort is normal. No respiratory distress. Breath sounds: Normal breath sounds. No wheezing, rhonchi or rales. Musculoskeletal: General: No swelling. Right lower le+ Pitting Edema present. Right foot: Swelling and tenderness present. Abnormal pulse (DP 1+, difficult to palpate due to pitting edema). Comments: Right foot with mild erythema. Skin: General: Skin is warm and dry. Findings: Erythema and wound present. Comments: Wound of right great toe, medial/distal aspect with exposed fat tissue, mild purulent drainage, surrounding erythema. See Photo. Right third toenail with underlying ecchymosis visible. Neurological: General: No focal deficit present. Mental Status: He is alert and oriented to person, place, and time. Psychiatric: Mood and Affect: Mood normal. Behavior: Behavior normal. Assessment/Plan Diagnoses and all orders for this visit: PVD (peripheral vascular disease) with claudication - Ambulatory referral to Podiatry; Future Encouraged pt to reach out to his vascular surgeon, Dr. Gracy Millan, to update her on what we discussed today at his appointment. Gave him notes regarding our plan of treatment. He will reach out to her office today. Acquired absence of left foot (HCC) Form completed for pt, All Purpose Vehicle Permit Application, for use of APV while hunting due to disability, impaired mobility. Ischemic toe ulcer, right, with 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) - Ambulatory referral to Podiatry; Future - Ambulatory referral to Home Health; Future - sulfamethoxazole-trimethoprim (Bactrim DS) 800-160 MG per tablet; Take 1 tablet by mouth in the morning and 1 tablet before bedtime. Do all this for 7 days. - SUPERFICIAL WOUND (HTRX); Future Provided pt with referral to Home Health for Wound Care, Podiatry for follow up, obtained a cultureof the wound today for send out, and also started him on Bactrim. Advised pt that he will be notified if the antibiotic needs to be changed based on results of the swab send out. Cautioned pt that if area worsens, if he develops fever/chills, vomiting, he is to go directly to the ER for further evaluation. Follow up in about 3 months (around 07/09/2025) for Medication Follow Up. documented in this encounter Plan of Treatment Upcoming Encounters Date Type Department Care Team ([facility] st Contact Info) Description 04/24/2025 1:00 PM EDT Office Visit [facility] [address] [facility] [address] [place] [phone] Emmanuel Gonzalez DPM [address] [facility] 5 [place] [address] Scheduled Orders Name Type Priority Associated Diagnoses Orde r Schedule SUPERFICIAL WOUND (HTRX) Lab Routine Ischemic toe ulcer, right, with 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) Expected: 04/08/2025 (Approximate), Expires: 04/08/2026 Scheduled Referrals Name Type Priority Associated Diagnoses Order Schedule Ambulatory referral to Podiatry Outpatient Referral STAT PVD (peripheral vascular disease) with claudication Ischemic toe ulcer, right, with 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) Expected: 04/08/2025 (Approximate), Expires: 10/09/2025 Ambulatory referral to Home Health Outpatient Referral STAT Ischemic toe ulcer, right, with 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) Expected: 04/08/2025 (Approximate), Expires: 10/09/2025 documented as of this encounter Visit Diagnoses Diagnosis PVD (peripheral vascular disease) with claudication- Primary Unspecified peripheral vascular disease Acquired absence of left foot (HCC) Ischemic toe ulcer, right, with 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) documented in this encounter Additional Health Concerns Assessment Noted Time PHQ-9 Depression Total Score: 0 04/26/20 24 9:00 AM EDT documented as of this encounter Care Teams Manager Training Relationship Specialty Start Date End Date Nikko Bird MD [address] [facility] [address] [place] [address] PCP - [employer] 08/28/17 Nikko Bird MD [address] [facility] [address] [place] [address] PCP - General Family Medicine 03/09/23 Elaine Saab LPN [address] [place] [address] 11/15/24 documented as of this encounter
--- OUTSIDE RECORDS SUMMARY | 2025-04-14 13:30 | XMS_ITS | Encounter Summary ---
Author Organization [facility] Address [address] [place] [address] Care Team Providers Care Data Analyst Report Writer Name Role Phone Nikko Bird MD Unavailable Nikko Bird MD Primary Care Provider [phone] Elaine Saab LPN Unavailable Reason for Referral * Imaging (Routine) - Closed Specialty Diagnoses / Procedures Referred By Contac t Referred To Contact Radiology Diagnoses Osteomyelitis of right foot, unspecified type (HCC) Procedures MR foot right wo IV contrast Nikko Bird MD [address] [facility] 110 [place] [address] Phone: tel: fax: [facility] [address] [facility] [address] [place] [address] Phone: tel: fax: Referral ID Status Reason Start Date Expiration Date Visits Re quested Visits Authorized [id number] Closed 04/14/2025 06/13/2025 1 1 Reason for Visit * Reason Comments Foot Ulcer Encounter Details Date Type Department Care Team (Late st Contact Info) Description 04/14/2025 1:30 PM EDT Office Visit [facility] [place] [address] [facility] 110 [place] [address] Nikko Bird MD [address] [facility] 110 [place] [address] PVD (peripheral vascular disease) with claudication (Primary Dx); Ischemic toe ulcer, right, with 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); Osteomyelitis of right foot, unspecified type (HCC) Social History Tobacco Use Types Packs/Day [...] Date Recorded Patient Health Questionnaire-2 Score 0 04/14/2025 [facility] of Occupat ional Health - Occupational Stress [...] any time in the past 12 m [facility], were you homeless or living in a fci (including now)? No 06/21/2024 Sex and Gender Information Value Date Recorded Sex Assigned at Not on file Legal Sex Male 7:18 PM EDT Gender Identity Not on file Sexual Orientation Not on file documented as of this encounter Last Filed Vital Signs Vital Sign Reading Time Taken Comments Blood Pressure 132/62 04/14/2025 1:27 PM EDT Pulse 70 04/14/2025 1:27 PM EDT Temperature - - Respiratory Rate - - Oxygen Saturation 96% 04/14/2025 1:27 PM EDT Inhaled Oxygen Concentration - - Weight 109 kg (241 lb) 04/14/2025 1:27 PM EDT Height 188 cm (6' 2 ) 04/14/2025 1:27 PM EDT Body Mass Index 30.94 04/14/2025 1:27 PM EDT documented in this encounter Functional Status * Over the past 2 weeks, how often have you been bothered by any of the following problems? Question Answer Date of Assessment Author Little interest or pleasure in doing things Not at all 04/14/2025 1:19 PM EDT Lorraine Valdez MA Feeling down, depressed, or hopeless Not at all 04/14/2025 1:19 PM EDT Lorraine Valdez MA Patient Health Questionnaire -2 Score 0 04/14/2025 1:19 PM EDT Lorraine Valdez MA documented as of this encounter Progress Notes * Nikko Bird MD - 04/14/2025 1:45 PM EDTAssociated Problem(s): Osteomyelitis of right foot (HCC) Will get stat MRI Will do stat Podiatry referral If worsens go to ER Currently no drainage * Nikko Bird MD - 04/14/2025 1:37 PM EDTAssociated Problem(s): Ischemic toe ulcer, right, with 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) Needs to finish antibiotic and needs follow up with podiatry * Nikko Bird MD - 04/14/2025 1:37 PM EDTAssociated Problem(s): PVD (peripheral vascular disease) with claudication Needs follow up with Vascular surgeon * Nikko Bird MD - 04/14/2025 1:30 PM EDT Images from the original note were not included. Attached media from the original note were not included. Subjective Patient ID: Tristin Gray is a 85 y.o. male who presents for Foot Ulcer. Tristin is present today for evaluation of possible infected toe. Admits right foot great toe is red,swollen, not as painful as it was last week . Pt sees dr gonzalez next week He does have a couple days left of abx Pt has also been using iodine and peroxide Over the past 2 weeks, how often [...] or shortness of breath 76.5 Unspecified 3 amoxicillin-clavulanate (Augmentin) 875-125 MG tablet Take 1 tablet (875 mg) by mouth in the morning and 1 tablet (875 mg) in the evening. Take with meals. Do all this for 7 days. 14 tablet 0 aspirin 81 MG EC tablet Take 81 [...] 1 CAPSULE EVERY DAY 90 capsule 3 oxyCODONE-acetaminophen (Percocet) 5-325 MG tablet Take 1 tablet by mouth every 6 (six) hours if needed for severe pain or moderate pain 120 tablet 0 rivaroxaban (Xarelto) 2.5 MG tablet TAKE 1 TABLET TWICE DAILY 180 tablet 3 sulfamethoxazole-trimethoprim (Bactrim DS) 800-160 MG per tablet Take 1 tablet by mouth in the morning and 1 tablet before bedtime. Do all this for 7 days. 14 tablet 0 tamsulosin (Flomax) 0.4 MG 24 hr capsule Take 1 capsule (0.4 mg) by mouth in the morning and 1 capsule (0.4 mg) before bedtime. 200 capsule 0 zolpidem (Ambien) 10 MG tablet Take 1 tablet (10 mg) by mouth as needed at bedtime for sleep 30 tablet 5 [DISCONTINUED] rivaroxaban (Xarelto) 2.5 MG tablet TAKE 1 TABLET TWICE DAILY 200 tablet 3 No current facility-administered medications on file prior [...] Carotid artery disease Cataract 2014 Cellulitis 01/19/2022 [facility] Cellulitis LLE Colon polyps 2012 Critical lower limb ischemia ([facility]) 09/04/2018 Last Assessment & Plan: Pt s/p LLE angiogram with Dr Hahn who feels that the pt has no further endovascular options. He has consulted Dr. Millan for a possible tibial bypass. 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 Failure - [facility] History of being hospitalized [place] - [facility] 07/15/2021-07/16/2021 History of coronary angiogram [...] (HCC) 10/2016 Preinfarcation syndrome, CABGx3 Prostate cancer ([facility] 2009 SOB (shortness of breath) Unstable angina ([facility]) 2014 XR 06/18/2019 XR shows impingement to left [...] incomplete bowel prep Diverticulosis Dr. Rowe at [facility] COLONOSCOPY W/ POLYPECTOMY 2011 CORONARY ARTERY [...] HISTORY 04/25/2022 Diagnostic LE catheterization Dr. Hahn [place] MEDICATION MANAGEMENT 11/2020 Multi resistant Strep Pneumonia, susceptible Levaquin PROSTATE BIOPSY 2009 TOTAL HIP ARTHROPLASTY 07/15/2021 Direct anterior right total hip arthroplasty, periarticular injection, right hip fluoroscopy XA SPECIAL ANGIOGRAPHY PROCEDURE Bilateral 10/12/2023 Dr. Sanchez Visit Vitals Smoking Status Never Review of Systems Objective Physical Exam Constitutional: General: He is [...] Affect: Mood normal. Behavior: Behavior normal. Assessment/Plan Problem List Items Addressed This Visit PVD (peripheral vascular disease) with claudication - Primary Needs follow up with Vascular surgeon Ischemic toe ulcer, right, with 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) Needs to finish antibiotic and needs follow up with podiatry Osteomyelitis of right foot (HCC) Relevant Orders MR foot right wo IV contrast No follow-ups on file. documented in this encounter Plan of Treatment Upcoming Encounters Date Type Department Care Team (Late st Contact Info) Description 04/24/2025 1:00 PM EDT Office Visit [facility] 112 [facility] 120 [place] [address] Emmanuel Gonzalez DPM 3006 [facility] 5 [place] [address] documented as of this encounter Results * MR foot right wo IV contrast (04/15/2025 8:44 AM EDT) Anatomical Region Laterality Modality Lower Extremities, Foot Right Magnetic Resonance 04/15/2025 9:53 AM EDT Impressions 04/15/2025 9:58 AM EDT Osteomyelitis of the distal phalanx of the great toe. Bone marrow edema of the proximal phalanx of the great toe may be reactive/degenerative however early osteomyelitis is not excluded. ELECTRONICALLY SIGNED BY: Dom Ruiz DO Narrative 04/15/2025 9:58 AM EDT EXAM: MR FOOT RIGHT WO IV CONTRAST HISTORY: Great toe wound. Osteomyelitis. COMPARISON : None available TECHNIQUE: Multiplanar multisequence MRI of the foot was performed without contrast. FINDINGS: There is hyperintense T2 signal within the distal phalanx of the great toe greatest at the distal tuft with corresponding hypointense T1 signal. There is mild hyperintense T2 signal within the first proximal phalanx without definitive corresponding hypointense T1 signal that may be degenerative however early osteomyelitis is not excluded. No evidence of recent fracture. Flexor and extensor tendons are intact. Hyperintense signal of the musculature of the foot is likely secondary to chronic denervation. Dorsal subcutaneous soft tissue edema. No loculated fluid collection to suggest abscess. Soft tissue wound of the great toe measures approximately 1.4 cm. Procedure Note Dom Ruiz DO - 04/15/2025 EXAM: MR FOOT RIGHT WO IV CONTRAST HISTORY: Great toe wound. Osteomyelitis. COMPARISON : None available TECHNIQUE: Multiplanar multisequence MRI of the foot was performed withoutcontrast. FINDINGS: There is hyperintense T2 signal within the distal phalanx of the great toegreatest at the distal tuft with corresponding hypointense T1 signal.There is mild hyperintense T2 signal within the first proximal phalanxwithout definitive corresponding hypointense T1 signal that may bedegenerative however early osteomyelitis is not excluded. No evidence ofrecent fracture. Flexor and extensor tendons are intact. Hyperintensesignal of the musculature of the foot is likely secondary to chronicdenervation. Dorsal subcutaneous soft tissue edema. No loculated fluidcollection to suggest abscess. Soft tissue wound of the great toe measuresapproximately 1.4 cm. 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 Bone marrow edema of the proximal phalanx of the great toe may bereactive/degenerative however early osteomyelitis is not excluded. ELECTRONICALLY SIGNED BY: Dom Ruiz DO Nikko Bird MD IM MRI PROCEDURES Final Result documented in this encounter Visit Diagnoses Diagnosis PVD (peripheral vascular disease) with claudication- Primary Unspecified peripheral vascular disease Ischemic toe ulcer, right, with 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) Osteomyelitis of right foot, unspecified type (HCC) Osteomyelitis of right foot, unspecified type (HCC) documented in this encounter Additional Health Concerns Assessment Noted Time PHQ-9 Depression Total Score: 0 04/26/20 24 9:00 AM EDT documented as of this encounter Care Teams Data Analyst Report Writer Relationship Specialty Start Date End Date Nikko Bird MD [address] [facility] 110 [place] [address] PCP - [employer] 08/28/17 Nikko Bird MD [address] [facility] 110 [place] [address] PCP - General Family Medicine 03/09/23 Elaine Saab LPN [address] [facility] 110 [place] [address] 11/15/24 documented as of this encounter
--- OUTSIDE RECORDS SUMMARY | 2025-04-15 08:00 | XMS_ITS | Encounter Summary ---
Author Organization [facility] Address [address] [place] [address] Care Team Providers Care Provider Relations Consultant Name Role Phone Nikko Bird MD Unavailable Nikko Bird MD Primary Care Provider [phone] Elaine Saab LPN Unavailable Reason for Visit * Imaging (Routine) - Closed Specialty Diagnoses / Procedures Referred By Contac t Referred To Contact Radiology Diagnoses Osteomyelitis of right foot, unspecified type (HCC) Procedures MR foot right wo IV contrast Nikko Bird MD 112 [facility] John [address] [place] [address] Phone: tel: fax: [facility] [address] [facility] [address] [place] [address] Phone: tel: fax: Referral ID Status Reason Start Date Expiration Date Visits Re quested Visits Authorized [id number] Closed 04/14/2025 06/13/2025 1 1 Encounter Details Date Type Department Care Team (Latest Contact Info) Description 04/15/2025 8:00 AM EDT Ancillary Procedure [facility] [address] [facility] JOHN [address] [place] [address] Osteomyelitis of right foot, unspecified [...] Recorded Patient Health Questionnaire-2 Score 0 04/14/2025 [facility] of Occupat ional [facility] - Occupational Stress Questionnaire Answer Date Recorded [...] any time in the past 12 m [facility], were you homeless or living in a fpc (including now)? No 06/21/2024 Sex and Gender Information Value Date Recorded Sex Assigned at Not on file Legal Sex Male 7:18 PM EDT Gender Identity Not on file Sexual Orientation Not on file documented as of this encounter Plan of Treatment Upcoming Encounters Date Type Department Care Team (Late st Contact Info) Description 04/24/2025 1:00 PM EDT Office Visit [facility] 112 [facility] 120 [place] [address] Emmanuel Gonzalez DPM 3003 [facility] 5 [place] [address] documented as of this encounter [...] documented as of this encounter Care Teams Provider Relations Consultant Relationship Specialty Start Date End Date Nikko Bird MD 112 [facility] 110 [place] [address] PCP - [facility] 08/28/17 Nikko Bird MD [address] [place] [facility] 110 [place] [address] PCP - General Family Medicine 03/09/23 Elaine Saab LPN [address] [facility] 110 [place] [address] 11/15/24 documented as of this encounter
--- OUTSIDE RECORDS SUMMARY | 2025-04-15 13:35 | XMS_ITS | Encounter Summary ---
Author Organization [facility] Address [address] [facility] [place] [address] Care Team Providers Care Practical Nurse Clinical Coordinator Name Role Phone Nikko Bird MD Unavailable Nikko Bird MD Primary Care Provider [phone], Mary DECORATING AND ASSEMBLY SUPERVISOR Unavailable [phone] Monday, Mary DECORATING AND ASSEMBLY SUPERVISOR Unavailable [phone] Lorraine Morgan RN Unavailable Elaine Saab DECORATING AND ASSEMBLY SUPERVISOR Unavailable Encounter Details Date Type Department Care Team (Late st Contact Info) Description 01/25/2023 Orders Only [facility] [place] [facility] [address] [place] [address] Nikko Bird MD [address] [place] [address] Social History Tobacco Use Types Packs/Day Years [...] BRIGID PODIATRY [address] [place] [address] Emmanuel Gonzalez DPM 3006 [facility] 5 [place] [address] documented as of this encounter Procedures Procedure Name Priority Date/Time Associated Diagnosis Comments ECHOCARDIOGRAM Routine 11/06/2022 1:08 PM EDT documented in this encounter Results * ECHOCARDIOGRAM (11/06/2022 1:08 PM EDT) Anatomical Region Laterality Modality Other Nikko Bird MD [facility] Final Result documented in this encounter Visit Diagnoses Not on filedocumented in this encounter Care Teams Practical Nurse Clinical Coordinator Relationship Specialty Start Date End Date Nikko Bird MD [address] [place] [address] PCP - Humana 08/28/17 Nikko Bird MD [address] [place] [address] PCP - General Family Medicine 03/09/23MondayMary LPN [address] [place] [address] Licensed Practical Nurse Family Medicine 09/21/2309/21Mary LPN [address] [place] [address] Licensed Practical Nurse Family Medicine 06/21/24 Lorraine Morgan, RN [address] [place] [address] Licensed Practical Nurse Family Medicine 10/04/2411/15 Elaine Saab LPN [address] [place] [address] 11/15/24 documented as of this encounter
--- OUTSIDE RECORDS SUMMARY | 2025-04-15 13:35 | XMS_ITS | Encounter Summary ---
Author Organization [facility] Address [address] [place] [address] Care Team Providers Care Paedodontist Name Role Phone Nikko Bird MD Unavailable Nikko Bird MD Primary Care Provider [phone] Elaine Saab LPN Unavailable Encounter Details Date Type Department Care Team (Late st Contact Info) Description 03/17/2025 Abstract [facility] [place] [facility] [address] [facility] 110 [place] [address] Nikko Bird MD [address] [facility] 110 [place] [address] Social History Tobacco Use Types Packs/Day Years [...] Recorded Patient Health Questionnaire-2 Score 0 01/09/2025 [facility] - Occupational [...] time in the past 12 m [facility], were you homeless or living in a chcf (including now)? No 06/21/2024 Sex and Gender [...] Visit [facility] PODIATRY [address] [facility] 120 [place] [address] Emmanuel Gonzalez DPM 3006 [facility] 5 [place] [address] documented as of this encounter Visit Diagnoses Not on filedocumented in this encounter Additional Health Concerns Assessment Noted Time PHQ-9 Depression Total Score: 0 04/26/20 24 9:00 AM EDT documented as of this encounter Care Teams Paedodontist Relationship Specialty Start Date End Date Nikko Bird MD [address] [facility] 110 [place] [address] PCP - Humana 08/28/17 Nikko Bird MD [address] [facility] 110 [place] [address] PCP - General Family Medicine 03/09/23 Elaine Saab LPN [address] [facility] 110 [place] [address] 11/15/24 documented as of this encounter
--- OUTSIDE RECORDS SUMMARY | 2025-04-15 13:35 | XMS_ITS | Encounter Summary ---
Author Organization [facility] Address [address] [place] [address] Care Team Providers Care Head Usher Name Role Phone Nikko Bird MD Unavailable Nikko Bird MD Primary Care Provider [phone] Elaine Saab LPN Unavailable Encounter Details Date Type Department Care Team (Late st Contact Info) Description 04/14/2025 Patient Outreach [facility] POPULATION [facility] [address] [place] [address] Elaine Saab LPN [address] [facility] 110 [place] [address] Social History Tobacco Use Types [...] Recorded Patient Health Questionnaire-2 Score 0 04/14/2025 [facility] ional [...] time in the past 12 m [facility], were you homeless or living in a alf (including now)? No 06/21/2024 Sex and Gender [...] Pt shares he was going to got [facility] but since he can get in [...] Row Patient Outreach from 04/14/2025 in [facility] with Elaine Saab LPN Week Number [...] no What is the home health agency? [facility] home care Has home health visited the [...] Description 04/24/2025 1:00 PM EDT Office Visit [facility] PODIATRY [address] [place] [address] Emmanuel Gonzalez DPM 3006 [facility] 5 [place] [address] documented as of this encounter Visit Diagnoses Diagnosis Stage 3a chronic kidney disease (CMS-HCC)- Primary Chronic diastolic (congestive) heart failure (HCC) documented in this encounter Additional Health Concerns Assessment Noted Time PHQ-9 Depression Total Score: 0 04/26/20 24 9:00 AM EDT documented as of this encounter Care Teams Head Usher Relationship Specialty Start Date End Date Nikko Bird MD 112 [facility] 110 [place] [address] PCP - Humana 08/28/17 Nikko Bird MD 112 [facility] 110 [place] [address] PCP - General Family Medicine 03/09/23 Elaine Saab LPN 112 [facility] 110 [place] [address] 11/15/24 documented as of this encounter
--- OUTSIDE RECORDS SUMMARY | 2025-04-15 13:35 | XMS_ITS | Encounter Summary ---
Author Organization [facility] Address [address] [place] [address] Care Team Providers Care Vinyl Dipper Name Role Phone Nikko Bird MD Unavailable Nikko Bird MD Primary Care Provider [phone] Elaine Saab LPN Unavailable Encounter Details Date Type Department Care Team (Late st Contact Info) Description 04/09/2025 Telephone [facility] [place] [facility] [address] [facility] 110 [place] [address] Zoë King PA [address] [facility] 110 [place] [address] Social History Tobacco Use Types Packs/Day Years [...] Recorded Patient Health Questionnaire-2 Score 0 04/08/2025 [facility] of Occupat ional Health - Occupational [...] EDT The incorrect test was run through [facility]. They said they did not receive the order electronically and then entered in the wrong test. They will fax a correction form that I have to sign, then the correct test will be run. She stated he will only be charged for the test that I ordered, not the add onthat they ran in error. [facility] documented in this encounter Plan of Treatment Upcoming Encounters Date Type Department Care Team (Late st Contact Info) Description 04/24/2025 1:00 PM EDT Office Visit [facility] [address] [facility] 120 [place] [address] Emmanuel Gonzalez DPM 3006 [facility] 5 [place] [address] documented as of this encounter Visit Diagnoses Not on filedocumented in this encounter Additional Health Concerns Assessment Noted Time PHQ-9 Depression Total Score: 0 04/26/20 24 9:00 AM EDT documented as of this encounter Care Teams Vinyl Dipper Relationship Specialty Start Date End Date Nikko Bird MD [address] [facility] 110 [place] [address] PCP - Humana 08/28/17 Nikko Bird MD [address] [facility] 110 [place] [address] PCP - General Family Medicine 03/09/23 Elaine Saab LPN 112 [facility] 110 [place] [address] 11/15/24 documented as of this encounter
--- OUTSIDE RECORDS SUMMARY | 2025-04-15 13:35 | XMS_ITS | Encounter Summary ---
Author Organization [facility] Address [address] [facility] [place] [address] Care Team Providers Care Cashiers Supervisor Name Role Phone Nikko Bird MD Unavailable Nikko Bird MD Primary Care Provider [phone], Mary STUMP SHOOTER Unavailable [phone] Monday, Mary STUMP SHOOTER Unavailable [phone] Lorraine Morgan RN Unavailable Elaine Saab STUMP SHOOTER Unavailable Encounter Details Date Type Department Care Team (Late st Contact Info) Description 02/02/2023 Abstract [facility] [place] [facility] [address] [facility] 110 [place] [address] Zoë King PA 112 [facility] 110 [place] [address] Social History Tobacco Use Types Packs/Day Years [...] BRIGID PODIATRY [address] [place] [address] Emmanuel Gonzalez DPM 3006 [facility] 5 [place] [address] documented as of this encounter Visit Diagnoses Not on filedocumented in this encounter Care Teams Cashiers Supervisor Relationship Specialty Start Date End Date Nikko Bird MD [address] [place] [address] PCP - Humana 08/28/17 Nikko Bird MD [address] [place] [address] PCP - General Family Medicine 03/09/23Monday, ISABELLA Hernandez [address] [place] [address] Licensed Practical Nurse Family Medicine 09/21/2309/21, ISABELLA Hernandez [address] [place] [address] Licensed Practical Nurse Family Medicine 06/21/24 Lorraine Morgan, RN [address] [place] [address] Licensed Practical Nurse Family Medicine 10/04/2411/15 Elaine Saab LPN [address] [place] [address] 11/15/24 documented as of this encounter
--- OUTSIDE RECORDS SUMMARY | 2025-04-15 13:35 | XMS_ITS | Encounter Summary ---
Author Organization [facility] Address [address] [place] [address] Care Team Providers Care Doll Repairer Name Role Phone Nikko Bird MD Unavailable Nikko Bird MD Primary Care Provider [phone] Elaine Saab LPN Unavailable Encounter Details Date Type Department Care Team (Late st Contact Info) Description 04/08/2025 External Result Encounter [facility] External Department Unsolicited Zoë King, PA 112 [facility] 110 [place] [address] Social History Tobacco Use Types Packs/Day Years [...] 0 04/08/2025 [facility] of Occupat ional [facility] - Occupational Stress Questionnaire Answer Date Recorded [...] time in the past 12 m [facility], were you homeless or living [...] EDT Office Visit [facility] 112 [facility] 120 [place] [address] Emmanuel Gonzalez DPM 3006 [facility] 5 [place] [address] documented as of this encounter Procedures Procedure Name Priority Date/Time Associated Diagnosis Comments MECA Routine 04/08/2025 12:00 AM EDT HERPES SIMPLEX VIRUS 1 Routine 04/08/2025 12:00 AM EDT documented in this encounter Results * (ABNORMAL) MECA (04/08/2025 12:00 AM EDT) MECA 25.731(A) 23.000 - 31.199 ppm 04/09/2025 1:18 PM EDT [facility] MECA Detected(A) 23.000 - 31.199 ppm 04/09/2025 1:18 PM EDT [facility] TET B, TET M 23.751(A) 23.000 - 27.778 ppm 04/09/2025 1:18 PM EDT [facility] TET B, TET M Detected(A) 23.000 - 27.778 ppm 04/09/2025 1:18 PM EDT [facility] ACINETOBACTER BAUMANNII (ACUTE WOUND) 0 19.961 - 24.689 ppm 04/09/2025 1:19 PM EDT [facility] ACINETOBACTER BAUMANNII (ACUTE WOUND) Not Detected 19.961 - 24.689 ppm 04/09/2025 1:19 PM EDT [facility] BACTEROIDES FRAGILIS, VULGATUS (ACUTE WOUND) 23.270(A) 19.961 - 24.689 ppm 04/09/2025 1:18 PM EDT [facility] BACTEROIDES FRAGILIS, VULGATUS (ACUTE WOUND) Detected(A) 19.961 - 24.689 ppm 04/09/2025 1:18 PM EDT [facility] CITROBACTER FREUNDII (ACUTE WOUND) 0 19.961 - 24.689 ppm 04/09/2025 1:19 PM EDT [facility] CITROBACTER FREUNDII (ACUTE WOUND) Not Detected 19.961 - 24.689 ppm 04/09/2025 1:19 PM EDT [facility] CLOSTRIDIUM PERFRINGENS, NOVYI, SEPTICUM (ACUTE WOUND) 0 19.961 - 24.689 ppm 04/09/2025 1:19 PM EDT [facility] CLOSTRIDIUM PERFRINGENS, NOVYI, SEPTICUM (ACUTE WOUND) Not Detected 19.961 - 24.689 ppm 04/09/2025 1:19 PM EDT [facility] ENTEROBACTER CLOACAE COMPLEX, KLEBSIELLA (ENTEROBACTER) AEROGENES ((A) 0 19.961 - 24.689 ppm 04/09/2025 1:19 PM EDT [facility] ENTEROBACTER CLOACAE COMPLEX, KLEBSIELLA (ENTEROBACTER) AEROGENES ((A) Not Detected 19.961 - 24.689 ppm 04/09/2025 1:19 PM EDT [facility] ENTEROCOCCUS FAECALIS, FAECIUM 0 19.961 - 24.689 ppm 04/09/2025 1:19 PM EDT [facility] ENTEROCOCCUS FAECALIS, FAECIUM Not Detected 19.961 - 24.689 ppm 04/09/2025 1:19 PM EDT [facility] ESCHERICHIA COLI (ACUTE WOUND) 0 19.961 - 24.689 ppm 04/09/2025 1:19 PM EDT [facility] ESCHERICHIA COLI (ACUTE WOUND) Not Detected 19.961 - 24.689 ppm 04/09/2025 1:19 PM EDT [facility] KLEBSIELLA PNEUMONIAE, OXYTOCA (ACUTE WOUND) 0 19.961 - 24.689 ppm 04/09/2025 1:19 PM EDT [facility] KLEBSIELLA PNEUMONIAE, OXYTOCA (ACUTE WOUND) Not Detected 19.961 - 24.689 ppm 04/09/2025 1:19 PM EDT [facility] PROTEUS MIRABILIS, VULGARIS (ACUTE WOUND) 22.966(A) 19.961 - 24.689 ppm 04/09/2025 1:18 PM EDT [facility] PROTEUS MIRABILIS, VULGARIS (ACUTE WOUND) Detected(A) 19.961 - 24.689 ppm 04/09/2025 1:18 PM EDT [facility] PSEUDOMONAS AERUGINOSA (ACUTE WOUND) 0 19.961 - 24.689 ppm 04/09/2025 1:19 PM EDT [facility] PSEUDOMONAS AERUGINOSA (ACUTE WOUND) Not Detected 19.961 - 24.689 ppm 04/09/2025 1:19 PM EDT [facility] SERRATIA MARCESCENS (ACUTE WOUND) 0 19.961 - 24.689 ppm 04/09/2025 1:19 PM EDT [facility] SERRATIA MARCESCENS (ACUTE WOUND) Not Detected 19.961 - 24.689 ppm 04/09/2025 1:19 PM EDT [facility] STAPHYLOCOCCUS AUREUS (ACUTE WOUND) 24.790(A) 19.961 - 24.689 ppm 04/09/2025 1:18 PM EDT [facility] STAPHYLOCOCCUS AUREUS (ACUTE WOUND) Detected(A) 19.961 - 24.689 ppm 04/09/2025 1:18 PM EDT [facility] STREPTOCOCCUS AGALACTIAE (GROUP B STREP) (ACUTE WOUND) 0 19.961 - 24.689 ppm 04/09/2025 1:19 PM EDT [facility] STREPTOCOCCUS AGALACTIAE (GROUP B STREP) (ACUTE WOUND) Not Detected 19.961 - 24.689 ppm 04/09/2025 1:19 PM EDT [facility] STREPTOCOCCUS PYOGENES (GROUP A STREP) (ACUTE WOUND) 0 19.961 - 24.689 ppm 04/09/2025 1:19 PM EDT [facility] STREPTOCOCCUS PYOGENES (GROUP A STREP) (ACUTE WOUND) Not Detected 19.961 - 24.689 ppm 04/09/2025 1:19 PM EDT [facility] VIBRIO CHOLERAE, PARAHAEMOLYTICUS, VULNIFICUS (ACUTE WOUND) 0 23.000 - 31.296 ppm 04/09/2025 1:19 PM EDT [facility] VIBRIO CHOLERAE, PARAHAEMOLYTICUS, VULNIFICUS (ACUTE WOUND) Not Detected 23.000 - 31.296 ppm 04/09/2025 1:19 PM EDT [facility] Wound 04/08/2025 04/09/2025 4:1 0 AM EDT us Zoë BROWER LAB BLOOD ORDERABLES Edited Re sult - Final [facility] [address] [place] [address] * HERPES SIMPLEX VIRUS 1 (04/08/2025 12:00 AM EDT) [facility] HERPES SIMPLEX VIRUS 1 0 23.000 - 32.355 ppm 04/09/2025 11:32 AM EDT [facility] HERPES SIMPLEX VIRUS 1 Not Detected 23.000 - 32.355 ppm 04/09/2025 11:32 AM EDT [facility] HERPES SIMPLEX VIRUS 2 0 23.000 - 31.433 ppm 04/09/2025 11:32 AM EDT [facility] HERPES SIMPLEX VIRUS 2 Not Detected 23.000 - 31.433 ppm 04/09/2025 11:32 AM EDT [facility] HUMAN MONKEYPOX VIRUS 0 23.000 - 32.544 ppm 04/09/2025 11:37 AM EDT [facility] HUMAN MONKEYPOX VIRUS Not Detected 23.000 - 32.544 ppm 04/09/2025 11:37 AM EDT [facility] VARICELLA ZOSTER VIRUS (HUMAN HERPESVIRUS 3) 0 23.000 - 31.749 ppm 04/09/2025 11:32 AM EDT [facility] VARICELLA ZOSTER VIRUS (HUMAN HERPESVIRUS 3) Not Detected 23.000 - 31.749 ppm 04/09/2025 11:32 AM EDT [facility] Wound 04/08/2025 04/09/2025 4:1 0 AM EDT us Zoë BROWER LAB BLOOD ORDERABLES Final Res ult [facility] [address] [place] [address] documented in this encounter Visit Diagnoses Not on filedocumented in this encounter Additional Health Concerns Assessment Noted Time PHQ-9 Depression Total Score: 0 04/26/20 24 9:00 AM EDT documented as of this encounter Care Teams Doll Repairer Relationship Specialty Start Date End Date Nikko Bird MD [address] [place] [address] [place] [address] PCP - [employer] 08/28/17 Nikko Bird MD [address] [place] [address] [place] [address] PCP - General Family Medicine 03/09/23 Elaine Saab LPN 112 [facility] 110 [place] [address] 11/15/24 documented as of this encounter
--- OUTSIDE RECORDS SUMMARY | 2025-04-15 13:35 | XMS_ITS | Encounter Summary ---
Author Organization [facility] Address [address] [place] [address] Care Team Providers Care Oxygen Therapist Name Role Phone Nikko Bird MD Unavailable Nikko Bird MD Primary Care Provider [phone] Elaine Saab LPN Unavailable Encounter Details Date [...] 0 04/14/2025 [facility] ional [facility] - Occupational Stress Questionnaire Answer Date [...] any time in the past 12 m [facility], were you homeless or living in a correction (including now)? No 06/21/2024 Sex and Gender Information Value Date Recorded Sex Assigned at Not on file Legal Sex Male 7:18 PM EDT Gender Identity Not on file Sexual Orientation Not on file documented as of this encounter Plan of Treatment Upcoming Encounters Date Type Department Care Team ([facility] st Contact Info) Description 04/24/2025 1:00 PM EDT Office Visit [facility] [address] [facility] 120 [place] [address] Emmanuel Gonzalez, SHIRLEY [address] [facility] 5 [place] [address] documented as of this encounter Visit Diagnoses Not on filedocumented in this encounter Additional Health Concerns Assessment Noted Time PHQ-9 Depression Total Score: 0 04/26/20 9:00 AM EDT documented as of this encounter Care Teams Oxygen Therapist Relationship Specialty Start Date End Date Nikko Bird MD [address] [facility] 110 [place] [address] PCP - [employer] 08/28/17 Nikko Bird MD [address] [facility] 110 [place] [address] PCP - General Family Medicine 03/09/23 Elaine Saab LPN [address] [facility] 110 [place] [address] 11/15/24 documented as of this encounter
--- OUTSIDE RECORDS SUMMARY | 2025-04-15 13:35 | XMS_ITS | Encounter Summary ---
Author Organization [facility] Address [address] [place] [address] Care Team Providers Care Associate Financial Analyst Name Role Phone Nikko Bird MD Unavailable Nikko Bird MD Primary Care Provider [phone] Elaine Saab LPN Unavailable Encounter Details Date [...] Recorded Patient Health Questionnaire-2 Score 0 04/14/2025 [facility] of Occupat ional [facility] - Occupational Stress Questionnaire Answer Date Recorded [...] time in the past 12 m [facility], were you homeless or living in [...] Office Visit [facility] [address] [facility] 120 [place] [address] Emmanuel Gonzalez DPM 3006 [facility] 5 [place] [address] documented as of this encounter Visit Diagnoses Not on filedocumented in this encounter Additional Health Concerns Assessment Noted Time PHQ-9 Depression Total Score: 0 04/26/20 9:00 AM EDT documented as of this encounter Care Teams Associate Financial Analyst Relationship Specialty Start Date End Date Nikko Bird MD [address] [facility] 110 [place] [address] PCP - [employer] 08/28/17 Nikko Bird MD [address] [facility] 110 [place] [address] PCP - General Family Medicine 03/09/23 Elaine Saab LPN [address] [facility] 110 [place] [address] 11/15/24 documented as of this encounter
--- OUTSIDE RECORDS SUMMARY | 2025-04-15 13:35 | XMS_ITS | Encounter Summary ---
Author Organization [facility] Address [address] [place] [address] Care Team Providers Care Tip Bander Name Role Phone Nikko Bird MD Unavailable Nikko Bird MD Primary Care Provider Elaine Saab LPN Unavailable Reason for Visit * Reason Comments Med Refill Encounter Details Date Type Department Care Team (Late st Contact Info) Description 04/09/2025 Refill [facility] [place] [facility] [address] [facility] 110 [place] [address] Zoë King PA 112 [facility] 110 [place] [address] Paroxysmal atrial fibrillation (HCC) Social History Tobacco [...] Questionnaire-2 Score 0 04/08/2025 [facility] - [...] in the past 12 m [facility], were you homeless or living [...] Visit [facility] [address] [facility] 120 [place] [address] Emmanuel Gonzalez DPJenni 3006 [facility] 5 [place] [address] documented as of this encounter Visit Diagnoses Diagnosis Paroxysmal atrial fibrillation (HCC) Atrial fibrillation documented in this encounter Additional Health Concerns Assessment Noted Time PHQ-9 Depression Total Score: 0 04/26/20 24 9:00 AM EDT documented as of this encounter Care Teams Tip Bander Relationship Specialty Start Date End Date Nikko Bird MD [address] [facility] 110 [place] [address] PCP - [employer] 08/28/17 Nikko Bird MD [address] [facility] 110 [place] [address] PCP - General Family Medicine 03/09/23 Elaine Saab LPN [address] [facility] 110 [place] [address] 11/15/24 documented as of this encounter
--- OUTSIDE RECORDS SUMMARY | 2025-04-15 13:35 | XMS_ITS | Encounter Summary ---
Author Organization [facility] Address [address] [place] [address] Care Team Providers Care Nca Certified Concierge Name Role Phone Nikko Bird MD Unavailable Nikko Bird MD Primary Care Provider [phone] Elaine Saab LPN Unavailable Encounter Details Date Type Department Care Team (Late st Contact Info) Description 03/24/2025 Abstract [facility] [place] [facility] [address] [facility] 110 [place] [address] Nikko Bird MD [address] [facility] 110 [place] [address] Social History Tobacco Use Types Packs/Day Years [...] Recorded Patient Health Questionnaire-2 Score 0 01/09/2025 [facility] of Occupat ional Health - [...] any time in the past 12 m [facility], were you homeless or living in a prison (including now)? No 06/21/2024 Sex and Gender [...] Visit [facility] [address] [facility] 120 [place] [address] Emmanuel Gonzalez DPM 3006 [facility] 5 [place] [address] documented as of this encounter Visit Diagnoses Not on filedocumented in this encounter Additional Health Concerns Assessment Noted Time PHQ-9 Depression Total Score: 0 04/26/20 24 9:00 AM EDT documented as of this encounter Care Teams Nca Certified Concierge Relationship Specialty Start Date End Date Nikko Bird MD [address] [facility] 110 [place] [address] PCP - [employer] 08/28/17 Nikko Bird MD [address] [facility] 110 [place] [address] PCP - General Family Medicine 03/09/23 Elaine Saab LPN [address] [facility] 110 [place] [address] 11/15/24 documented as of this encounter
--- OUTSIDE RECORDS SUMMARY | 2025-04-15 13:35 | XMS_ITS | Encounter Summary ---
Author Organization [facility] Address [address] [place] [address] Care Team Providers Care Sammying Machine Operator Name Role Phone Nikko Bird MD Unavailable Nikko Bird MD Primary Care Provider [phone] Elaine Saab LPN Unavailable Encounter Details Date Type Department Care Team (Late st Contact Info) Description 04/08/2025 Bamboo flowsheet [facility] [place] [facility] [address] [place] 110 [place] [address] Zoë King PA [address] [facility] 110 [place] [address] Social History Tobacco Use Types Packs/Day Years [...] Recorded Patient Health Questionnaire-2 Score 0 04/08/2025 [facility] [place] of Occupat ional Health - Occupational Stress [...] EDT Office Visit [facility] 112 [facility] 120 [place] [address] Emmanuel Gonzalez DPM 3006 [facility] 5 [place] [address] documented as of this encounter Visit Diagnoses Not on filedocumented in this encounter Additional Health Concerns Assessment Noted Time PHQ-9 Depression Total Score: 0 04/26/20 24 9:00 AM EDT documented as of this encounter Care Teams Sammying Machine Operator Relationship Specialty Start Date End Date Nikko Bird MD [address] [facility] 110 [place] [address] PCP - [employer] 08/28/17 Nikko Bird MD [address] [facility] 110 [place] [address] PCP - General Family Medicine 03/09/23 Elaine Saab LPN [address] [facility] 110 [place] [address] 11/15/24 documented as of this encounter
--- OUTSIDE RECORDS SUMMARY | 2025-04-15 13:35 | XMS_ITS | Encounter Summary ---
Author Organization [facility] Address [address] [place] [address] Care Team Providers Care Cash Register Operator Name Role Phone Nikko Bird MD Unavailable Nikko Bird MD Primary Care Provider [phone] Elaine Saab LPN Unavailable Encounter Details Date Type Department Care Team (Late st Contact Info) Description 04/03/2025 Refill [facility] [place] 100 [facility] 112 [facility] 100 [place] [address] Nikko Bird MD 112 [facility] 110 [place] [address] PVD (peripheral vascular disease) with claudication Social [...] Recorded Patient Health Questionnaire-2 Score 0 03/31/2025 [facility] of Occupat ional Health - [...] any time in the past 12 m [facility], were you homeless or living in a retirement (including now)? No 06/21/2024 Sex and Gender [...] PM EDT Office Visit [facility] 112 [facility] 120 [place] [address] Emmanuel Gonzalez, DPJenni [address] [address] documented as of this encounter Visit Diagnoses Diagnosis PVD (peripheral vascular disease) with claudication Unspecified peripheral vascular disease documented in this encounter Additional Health Concerns Assessment Noted Time PHQ-9 Depression Total Score: 0 04/26/20 24 9:00 AM EDT documented as of this encounter Care Teams Cash Register Operator Relationship Specialty Start Date End Date Nikko Bird MD [address] [facility] 110 [place] [address] PCP - [employer] 08/28/17 Nikko Bird MD [address] [facility] 110 [place] [address] PCP - General Family Medicine 03/09/23 Elaine Saab LPN [address] [facility] 110 [place] [address] 11/15/24 documented as of this encounter
--- OUTSIDE RECORDS SUMMARY | 2025-04-15 13:35 | XMS_ITS | Encounter Summary ---
Author Organization [facility] Address [address] [place] [address] Care Team Providers Care Adult Education Professional Name Role Phone Nikko Bird MD Unavailable Nikko Bird MD Primary Care Provider [phone] Elaine Saab LPN Unavailable Encounter Details Date Type Department Care Team ([facility] Contact Info) Description 04/10/2025 Abstract [facility] 112 [facility] 120 [place] [address] Emmanuel Gonzalez DPM 3004 [facility] 5 [place] [address] Social History Tobacco Use Types Packs/Day Years [...] Patient Health Questionnaire-2 Score 0 04/14/2025 [facility] of Occupat ional Health - Occupational [...] [facility] 120 [place] [address] Emmanuel Gonzalez DPM 3006 [facility] 5 [place] [address] documented as of this encounter Visit Diagnoses Not on filedocumented in this encounter Additional Health Concerns Assessment Noted Time PHQ-9 Depression Total Score: 0 04/26/20 24 9:00 AM EDT documented as of this encounter Care Teams Adult Education Professional Relationship Specialty Start Date End Date Nikko Bird MD [address] [facility] 110 [place] [address] PCP - [employer] 08/28/17 Nikko Bird MD [address] [facility] 110 [place] [address] PCP - General Family Medicine 03/09/23 Elaine Saab LPN [address] [facility] 110 [place] [address] 11/15/24 documented as of this encounter
--- OUTSIDE RECORDS SUMMARY | 2025-04-15 13:35 | XMS_ITS | Encounter Summary ---
Author Organization [facility] Address [address] [place] [address] Care Team Providers Care Mechanics Supervisor Name Role Phone Nikko Bird MD Unavailable Nikko Bird MD Primary Care Provider [phone], Mary WRIGHTN Unavailable [phone], Amry PATENT PROSECUTION PARALEGAL Unavailable [phone] Lorraine Morgan RN Unavailable [phone] Elaine Saab PATENT PROSECUTION PARALEGAL Unavailable Encounter Details Date Type Department Care Team (Late st Contact Info) Description 04/15/2023 Abstract [facility] [place] [address] [facility] 110 [place] [address] Nikko Bird MD 112 [facility] 110 [place], [place] [address] Social History Tobacco Use Types Packs/Day Years [...] [facility] [address] [facility] 120 [place] [address] Emmanuel Gonzalez DPM 3006 [facility] 5 [place] [address] documented as of this encounter Visit Diagnoses Not on filedocumented in this encounter Care Teams Mechanics Supervisor Relationship Specialty Start Date End Date Nikko Bird MD [address] [place] [address] [place] [address] PCP - [employer] 08/28/17 Nikko Bird MD [address] [place] [address] [place] [address] PCP - General Family Medicine 03/09/23MondayMary LPN [address] [place] [address] Licensed Practical Nurse Family Medicine 09/21/2309/21Mary LPN [address] [place] [address] Licensed Practical Nurse Family Medicine 06/21/24 Lorraine Morgan, KULDEEP [address] [place] [address] Licensed Practical Nurse Family Medicine 10/04/2411/15 Elaine Saab LPN [address] [facility] 110 [place] [address] 11/15/24 documented as of this encounter
--- OUTSIDE RECORDS SUMMARY | 2025-04-15 13:35 | XMS_ITS | Encounter Summary ---
Author Organization [facility] Address [address] [place] [address] Care Team Providers Care Learning And Development Director Name Role Phone Nikko Bird MD Unavailable Nikko Bird MD Primary Care Provider [phone] Elaine Saab LPN Unavailable Encounter Details Date Type Department Care Team (Late st Contact Info) Description 04/09/2025 Abstract [facility] [place] [facility] [address] [facility] 110 [place] [address] Nikko Bird MD [address] [facility] 110 [place] [address] Social History Tobacco Use Types Packs/Day Years [...] Recorded Patient Health Questionnaire-2 Score 0 04/08/2025 [facility] of Occupat ional Health - Occupational [...] time in the past [address] [facility], were you homeless or living in [...] [facility] [address] [facility] 120 [place] [address] Emmanuel Gonzalez DPM 3006 [facility] 5 [place] [address] documented as of this encounter Visit Diagnoses Not on filedocumented in this encounter Additional Health Concerns Assessment Noted Time PHQ-9 Depression Total Score: 0 04/26/20 24 9:00 AM EDT documented as of this encounter Care Teams Learning And Development Director Relationship Specialty Start Date End Date Nikko Bird MD [address] [facility] 110 [place] [address] PCP - [employer] 08/28/17 Nikko Bird MD [address] [facility] 110 [place] [address] PCP - General Family Medicine 03/09/23 Elaine Saab LPN [address] [facility] 110 [place] [address] 11/15/24 documented as of this encounter
--- OUTSIDE RECORDS SUMMARY | 2025-04-15 13:35 | XMS_ITS | Encounter Summary ---
Author Organization [facility] Address [address] [place] [address] Care Team Providers Care Operations Research Director Name Role Phone Nikko Bird MD Unavailable Nikko Bird MD Primary Care Provider [phone] Elaine Saab LPN Unavailable Encounter Details Date Type Department Care Team (Late st Contact Info) Description 04/08/2025 Abstract [facility] [address] [facility] 110 [place] [address] Nikko Bird MD [address] [facility] 110 [place] [address] Social History Tobacco Use Types Packs/Day Years [...] Recorded Patient Health Questionnaire-2 Score 0 04/08/2025 [facility] Occupat ional Health - Occupational [...] Visit [facility] 112 [facility] 120 [place] [phone] Emmanuel Gonzalez DPM 3006 [facility] 5 [place] [address] documented as of this encounter Visit Diagnoses Not on filedocumented in this encounter Additional Health Concerns Assessment Noted Time PHQ-9 Depression Total Score: 0 04/26/20 9:00 AM EDT documented as of this encounter Care Teams Operations Research Director Relationship Specialty Start Date End Date Nikko Bird MD [address] [facility] 110 [place], [place] [address] PCP - [employer] 08/28/17 Nikko Bird MD [address] [facility] 110 [place] [address] PCP - General Family Medicine 03/09/23 Elaien Saab LPN 112 [facility] 110 [place] [address] 11/15/24 documented as of this encounter
--- OUTSIDE RECORDS SUMMARY | 2025-04-15 13:35 | XMS_ITS | Encounter Summary ---
Author Organization [facility] Healthcare Address [address] [place] [address] Care Team Providers Care Bank Courier Name Role Phone Nikko Bird MD Unavailable Nikko Bird MD Primary Care Provider [phone] Elaine Saab LPN Unavailable Encounter Details Date Type Department Care Team (Late st Contact Info) Description 04/07/2025 Patient Outreach [facility] POPULATION [facility] [address] [place] [address] Elaine Saab LPN [address] [facility] 110 [place] [address] Social History Tobacco Use Types [...] Recorded Patient Health Questionnaire-2 Score 0 04/08/2025 [facility] of Occupat ional Health - Occupational Stress [...] time in the past 12 m [facility], were you homeless or living in a mcc (including now)? No 06/21/2024 Sex and Gender [...] Flowsheet Row Patient Outreach from 04/07/[address] [facility] with Elaine Saab LPN Week Number Call [...] yes What is the home health agency[facility] What is the patient's [...] Office Visit [facility] [address] [facility] 120 [place] [address] Emmanuel Gonzalez DPM 3006 [facility] 5 [place] [address] documented as of this encounter Visit Diagnoses Diagnosis Chronic diastolic (congestive) heart failure (HCC)- Primary Chronic bronchitis, unspecified chronic bronchitis type (HCC) documented in this encounter Additional Health Concerns Assessment Noted Time PHQ-9 Depression Total Score: 0 04/26/20 24 9:00 AM EDT documented as of this encounter Care Teams Bank Courier Relationship Specialty Start Date End Date Nikko Bird MD 112 [facility] 110 [place] [address] PCP - [employer] 08/28/17 Nikko Bird MD 112 [facility] 110 [place] [address] PCP - General Family Medicine 03/09/23 Elaine Saab LPN 112 [facility] 110 [place] [address] 11/15/24 documented as of this encounter
--- OUTSIDE RECORDS SUMMARY | 2025-04-15 13:35 | XMS_ITS | Encounter Summary ---
Author Organization [facility] Address [address] [place] [address] Care Team Providers Care Acid Splicer Name Role Phone Nikko Bird MD Unavailable Nikko Bird MD Primary Care Provider [phone] Elaine Saab LPN Unavailable Encounter Details Date Type Department Care Team (Late st Contact Info) Description 04/10/2025 Abstract [facility] [place] [facility] [address] [facility] 110 [place] [address] Nikko Bird MD [address] [facility] 110 [place] [address] Social History Tobacco Use Types Packs/Day Years [...] Recorded Patient Health Questionnaire-2 Score 0 04/14/2025 [facility] of Occupat ional Health - [...] in the past 12 m [facility], were you homeless or living in [...] Visit [facility] [address] [facility] 120 [place] [address] Emmanuel Gonzalez DPM 3006 [facility] 5 [place] [address] documented as of this encounter Visit Diagnoses Not on filedocumented in this encounter Additional Health Concerns Assessment Noted Time PHQ-9 Depression Total Score: 0 04/26/20 24 9:00 AM EDT documented as of this encounter Care Teams Acid Splicer Relationship Specialty Start Date End Date Nikko Bird MD [address] [facility] 110 [place] [address] PCP - [employer] 08/28/17 Nikko Bird MD [address] [facility] 110 [place] [address] PCP - General Family Medicine 03/09/23 Elaine Saab LPN [address] [facility] 110 [place] [address] 11/15/24 documented as of this encounter
--- OUTSIDE RECORDS SUMMARY | 2025-04-15 13:35 | XMS_ITS | Encounter Summary ---
Author Organization [facility] Address [address] [place] [address] Phone Care Team Providers Care Hospital Ward Clerk Name Role Phone Unavailable Primary Care Provider Unavailabl e Encounter Details Date Type Department Care Team (Late st Contact Info) Description 10/17/2023 Scanned Document [facility] [address] [place] [phone] Scanning, Generic Provider Social History Tobacco Use [...]
--- OUTSIDE RECORDS SUMMARY | 2025-04-15 13:35 | XMS_ITS | Clinical Summary ---
Author Organization [facility] Address [address] [place] [address] Phone Care Team Providers Care Salesforce Business Analyst Name Role Phone Unavailable Primary Care Provider [...]
--- OUTSIDE RECORDS SUMMARY | 2025-04-15 13:35 | XMS_ITS | Encounter Summary ---
Author Organization [facility] Address [address] [place] [address] Care Team Providers Care Civil Structural Designer Name Role Phone Nikko Bird MD Unavailable Nikko Bird MD Primary Care Provider [phone] Elaine Saab LPN Unavailable Encounter Details Date Type Department Care Team (Late st Contact Info) Description 03/20/2025 Abstract [facility] [place] [facility] [address] [facility] [facility] 110 [place] [address] Nikko Bird MD [address] [place] 110 [place] [address] Social History Tobacco Use Types Packs/Day Years [...] Recorded Patient Health Questionnaire-2 Score 0 01/09/2025 [facility] of Occupat ional Health - [...] in the past 12 m [facility], were you homeless or living in a [...] Visit [facility] [address] [facility] 120 [place] [address] Emmanuel Gonzalez DPM 3006 [facility] 5 [place] [address] documented as of this encounter Visit Diagnoses Not on filedocumented in this encounter Additional Health Concerns Assessment Noted Time PHQ-9 Depression Total Score: 0 04/26/20 24 9:00 AM EDT documented as of this encounter Care Teams Civil Structural Designer Relationship Specialty Start Date End Date Nikko Bird MD [address] [facility] [address] [place] [address] PCP - [employer] 08/28/17 Nikko Bird MD [address] [facility] 110 [place] [address] PCP - General Family Medicine 03/09/23 Elaine Saab LPN [address] [facility] 110 [place] [address] 11/15/24 documented as of this encounter
--- OUTSIDE RECORDS SUMMARY | 2025-04-15 13:35 | XMS_ITS | Encounter Summary ---
Author Organization [facility] Address [address] [place] [address] Care Team Providers Care Weasand Trimmer Name Role Phone Nikko Bird MD Unavailable Nikko Bird MD Primary Care Provider [phone] Elaine Saab LPN Unavailable Reason for Visit * Reason Onset Date Comments posible med interaction 04/10/2025 Encounter Details Date Type Department Care Team (Late st Contact Info) Description 04/10/2025 [facility]phone [facility] 112 [facility] 110 [place] [address] Zoë King, LEONARDA 112 [facility] 110 [place], [place] [id number] posible med interaction Social History Tobacco Use [...] Recorded Patient Health Questionnaire-2 Score 0 04/08/2025 [facility] - Occupational Stress Questionnaire Answer Date [...] any time in the past 12 m [facility], were you homeless or [...] Marley LPN - 04/10/2025 9:25 AM EDT [facility] called there is a possible interaction between the bactrim and losartan ( did notsay what the interaction was) but needed you okay to let him have these meds unless you need to change the abx call nurse back at [phone] documented in this encounter Plan of Treatment Upcoming Encounters Date Type Department Care Team (Late st Contact Info) Description 04/24/2025 1:00 PM EDT Office Visit [facility] [address] [facility] 120 [place] [address] Emmanuel Gonzalez, DPJenni 3006 [facility] 5 [place] [address] documented as of this encounter Visit Diagnoses Diagnosis Ischemic toe ulcer, right, with 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)- Primary Chronic diastolic (congestive) heart failure (HCC) Chronic bronchitis, unspecified chronic bronchitis type (HCC) documented in this encounter Additional Health Concerns Assessment Noted Time PHQ-9 Depression Total Score: 0 04/26/20 9:00 AM EDT documented as of this encounter Care Teams Weasand Trimmer Relationship Specialty Start Date End Date Nikko Bird MD [address] [facility] [facility] 110 [place] [address] PCP - [employer] 08/28/17 Nikko Bird MD [address] [facility] 110 [place] [address] PCP - General Family Medicine 03/09/23 Elaine Saab LPN [address] [facility] 110 [place] [address] 11/15/24 documented as of this encounter
--- OUTSIDE RECORDS SUMMARY | 2025-04-15 13:35 | XMS_ITS | Encounter Summary ---
Author Organization [facility] Address [address] [place] [address] Care Team Providers Care Water Plant Maintenance Mechanic Name Role Phone Nikko Bird MD Unavailable Nikko Bird MD Primary Care Provider [phone] Elaine Saab LPN Unavailable Encounter Details Date Type Department Care Team (Late st Contact Info) Description 03/11/2025 Abstract [facility] [place] [facility] [address] [facility] 110 [place] [address] Nikko Bird MD [address] [facility] 110 [place] [address] Social History Tobacco Use Types Packs/Day Years [...] Recorded Patient Health Questionnaire-2 Score 0 01/09/2025 [facility] of Occupat ional Health - Occupational [...] time in the past 12 m [facility], were you homeless or living in a [...] [facility] [address] [facility] 120 [place] [address] Emmanuel Gonzalez DPM 3006 [facility] 5 [place] [address] documented as of this encounter Visit Diagnoses Not on filedocumented in this encounter Additional Health Concerns Assessment Noted Time PHQ-9 Depression Total Score: 0 04/26/20 24 9:00 AM EDT documented as of this encounter Care Teams Water Plant Maintenance Mechanic Relationship Specialty Start Date End Date Nikko Bird MD [address] [facility] 110 [place] [address] PCP - [employer] 08/28/17 Nikko Bird MD [address] [facility] 110 [place] [address] PCP - General Family Medicine 03/09/23 Elaine Saab LPN [address] [facility] 110 [place] [address] 11/15/24 documented as of this encounter
--- OUTSIDE RECORDS SUMMARY | 2025-04-15 13:35 | XMS_ITS | Encounter Summary ---
Author Organization [facility] Address [address] [place] [address] Care Team Providers Care Director Of Automation Name Role Phone Nikko Bird MD Unavailable Nikko Bird MD Primary Care Provider [phone] Elaine Saab LPN Unavailable Encounter Details Date [...] Recorded Patient Health Questionnaire-2 Score 0 04/08/2025 [employer] of Occupat ional [facility] - Occupational Stress Questionnaire Answer Date [...] Encounters Date Type Department Care Team ([facility] st Contact Info) Description 04/24/2025 1:00 PM EDT Office Visit [facility] [address] [facility] 120 [place] [address] Emmanuel Gonzalez DPM 3006 [facility] 5 [place] [address] documented as of this encounter Visit Diagnoses Not on filedocumented in this encounter Additional Health Concerns Assessment Noted Time PHQ-9 Depression Total Score: 0 04/26/20 9:00 AM EDT documented as of this encounter Care Teams Director Of Automation Relationship Specialty Start Date End Date Nikko Bird MD [address] [facility] 110 [place] [address] PCP - [employer] 08/28/17 Nikko Bird MD [address] [facility] 110 [place] [address] PCP - General Family Medicine 03/09/23 Elaine Saab LPN [address] [facility] 110 [place] [address] 11/15/24 documented as of this encounter
--- OUTSIDE RECORDS SUMMARY | 2025-04-15 13:35 | XMS_ITS | Clinical Summary ---
Author Organization [facility] Address [id number] [address] 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
--- OUTSIDE RECORDS SUMMARY | 2025-04-15 13:36 | XMS_ITS | Encounter Summary ---
Author Organization [facility] Address [address] [place] [address] Care Team Providers Care Head End Desizing Machine Operator Name Role Phone Nikko Bird MD Unavailable Nikko Bird MD Primary Care Provider [phone], Mary FOOD SERVICE Unavailable [phone] Lorraine Morgan RN Unavailable [phone] Saab, Elaine FOOD SERVICE Unavailable Encounter Details Date Type Department Care Team (Late Contact Info) Description 05/22/2024 Abstract [facility] [place] [facility] [address] [facility] 110 [place] [address] Nikko Bird MD [address] [facility] 110 [place], [place] [address] Social History Tobacco Use Types Packs/Day Years [...] CI PODIATRY [address] [facility] 120 [place] [address] Emmanuel Gonzalez DPM 3006 [facility] 5 [place] [address] documented as of this encounter Visit Diagnoses Not on filedocumented in this encounter Additional Health Concerns Assessment Noted Time PHQ-9 Depression Total Score: 0 04/26/20 24 9:00 AM EDT documented as of this encounter Care Teams Head End Desizing Machine Operator Relationship Specialty Start Date End Date Nikko Bird MD [address] [facility] 110 [place] [address] PCP - [employer] 08/28/17 Nikko Bird MD [address] [facility] 110 [place] [address] PCP - General Family Medicine 03/09/23MondayMary LPN [address] [facility] 110 [place] [address] Licensed Practical Nurse Family Medicine 06/21/24 Lorraine Morgan, RN [address] [place] [address] Licensed Practical Nurse Family Medicine 10/04/2411/15 Elaine Saab LPN [address] [facility] 110 [place] [address] 11/15/24 documented as of this encounter
--- OUTSIDE RECORDS SUMMARY | 2025-04-15 13:36 | XMS_ITS | Encounter Summary ---
Author Organization [facility] Address [address] [place] [address] Care Team Providers Care Lead Enterprise Architect Name Role Phone Nikko Bird MD Unavailable Nikko Bird MD Primary Care Provider [phone], Mary TUBE WRAPPER Unavailable [phone] Lorraine Morgan RN Unavailable Saab, Elaine TUBE WRAPPER Unavailable Encounter Details Date Type Department Care Team (Late Contact Info) Description 05/13/2024 Abstract [facility] [place] [facility] [address] [facility] 110 [place] [address] Nikko Bird MD [address] [facility] 110 [place], [place] [address] Social History Tobacco Use Types Packs/Day Years [...] CI PODIATRY [address] [facility] 120 [place] [address] Emmanuel Gonzalez DPM 3006 [facility] 5 [place] [address] documented as of this encounter Visit Diagnoses Not on filedocumented in this encounter Additional Health Concerns Assessment Noted Time PHQ-9 Depression Total Score: 0 04/26/20 24 9:00 AM EDT documented as of this encounter Care Teams Lead Enterprise Architect Relationship Specialty Start Date End Date Nikko Bird MD [address] [facility] 110 [place] [address] PCP - [employer] 08/28/17 Nikko Bird MD [address] [facility] 110 [place] [address] PCP - General Family Medicine 03/09/23MondayMary LPN [address] [facility] 110 [place] [address] Licensed Practical Nurse Family Medicine 06/21/24 Lorraine Morgan, RN [address] [place] [address] Licensed Practical Nurse Family Medicine 10/04/[address]15 Elaine Saab LPN [address] [facility] 110 [place] [address] 11/15/24 documented as of this encounter
--- OUTSIDE RECORDS SUMMARY | 2025-04-15 13:36 | XMS_ITS | Encounter Summary ---
Author Organization [facility] Address [address] [place] [address] Care Team Providers Care Dye Range Operator Cloth Name Role Phone Nikko Bird MD Unavailable Nikko Bird MD Primary Care Provider [phone], Mary CYTOLOGY MANAGER Unavailable [phone] Lorraine Morgan RN Unavailable Saab, Elaine CYTOLOGY MANAGER Unavailable Encounter Details Date Type Department Care Team (Late Contact Info) Description 10/12/2023 Abstract [facility] [place] [facility] [address] [facility] 110 [place] [address] Nikko Bird MD [address] [facility] 110 [place], [place] [address] Social History Tobacco Use Types Packs/Day Years [...] CI PODIATRY [address] [facility] 120 [place] [address] Emmanuel Gonzalez, TIFFANYM 3006 [facility] 5 [place] [address] documented as of this encounter Visit Diagnoses Not on filedocumented in this encounter Care Teams Dye Range Operator Cloth Relationship Specialty Start Date End Date Nikko Bird MD [address] [facility] 110 [place] [address] PCP - [employer] 08/28/17 Nikko Bird MD [address] [facility] 110 [place] [address] PCP - General Family Medicine 03/09/23MondayMary LPN [address] [facility] 110 [place] [address] Licensed Practical Nurse Family Medicine 06/21/24 Lorraine Morgan, KULDEEP [address] [place] [address] Licensed Practical Nurse Family Medicine 10/04/2411/15 Elaine Saab LPN [address] [facility] 110 [place] [address] 11/15/24 documented as of this encounter
--- OUTSIDE RECORDS SUMMARY | 2025-04-15 13:36 | XMS_ITS ---
Author Organization [facility] Address [address] [place] [address] Care Team Providers Care Warehouse Unloader Name Role Phone Nikko Bird MD Unavailable Nikko Bird MD Primary Care Provider [phone] Elaine Saab LPN Unavailable 30 Day Monitoring Program Status:Enrolled (Active) Start date:03/24/2025 Enrollment date:03/24/2025 Case Team Name Relationship Phone Elaine Saab LPN(Responsible Staff) [phone] Continued Care and Services Coordination
--- OUTSIDE RECORDS SUMMARY | 2025-04-15 13:36 | XMS_ITS | Encounter Summary ---
Author Organization [facility] Address [address] [place] [address] Care Team Providers Care Booky Name Role Phone Nikko Lovelace MD Unavailable Nikko Lovelace MD Primary Care Provider [phone], Mary WRIGHTN Unavailable [phone] Lorraine Morgan RN Unavailable [phone] Elaine Saab SCREEN REPAIRER CRUSHER Unavailable Encounter Details Date Type Department Care [...] Recorded Patient Health Questionnaire-2 Score 0 04/26/2024 [facility] - [...] were you homeless or living in a custodial (including now)? No 06/21/2024 Sex and Gender Information Value Date Recorded Sex Assigned at Not on file Legal Sex Male 7:18 PM EDT Gender Identity Not on file Sexual Orientation Not on file documented as of this encounter Plan of Treatment Upcoming Encounters Date Type Department Care Team (Late st Contact Info) Description 04/24/2025 1:00 PM EDT Office Visit [facility] 112 [facility] 120 [place] [address] Emmanuel Gonzalez DPM 3006 [facility] 5 [place] [address] documented as of this encounter Procedures Procedure Name Priority Date/Time Associated Diagnosis Comments CARD ECHO LIMITED STUDY 07/11/2024 9:20 PM EST C-REACTIVE PROTEIN, CARDIAC Routine 07/11/2024 1:27 PM EST documented in this encounter Results * CARD ECHO LIMITED STUDY (07/11/2024 9:20 PM EST) Anatomical Region Laterality Modality Radiographic Leticia ging 07/11/2024 9:20 PM EST Narrative 07/11/2024 9:22 PM EST The [address] [address] Cardiology Report Signed Patient: REJI POWELL MR#: [id number] : 1940 Acct:[id number] Age/Sex: 84 / M ADM Date: 07/11/24 Loc: LAB Attending Dr: RUSSEL ALBERTS APRN Ordering Physician: RUSSEL ALBERTS APRN Date of Service: 07/11/24 Procedure(s): CA echo limited Accession Number(s): [id number] cc: NIKKO LOVELACE ; RUSSEL ALBERTS APRN Patient Name: REJI POWELL MR#: [id number] : 1940 Exam Date: 07/11/2024 Ordering Doctor: RUSSEL ALBERTS MARKETING SERVICES SPECIALIST ECHOCARDIOGRAM REPORT PROCEDURE: CA ECHO LIMITED INDICATIONS: [...] JUAREZ Signed By: 07/11/242121 DD/ 19 TD/TT: High School Assistant Principal: Procedure Note Radiology, Radiologist, - 07/11/2024 [place] [address] Cardiology Report Signed Patient: REJI POWELLMR#: [id number] : 9Acct:[id number] Age/Sex: 84 / MADM Date: 07/11/24 Loc: LAB Attending Dr: RUSSEL ALBERTS APRN Ordering Physician: RUSSEL ALBERTS APRN Date of Service: 07/11/24 Procedure(s): CA echo limited Accession Number(s): [id number] cc: NIKKO LOVELACE ; RUSSEL ALBERTS APRN Patient Name: REJI POWELL MR#: [id number] : 1940 Exam Date: 07/11/2024 Ordering Doctor: RUSSEL ALBERTS MARKETING SERVICES SPECIALIST ECHOCARDIOGRAM REPORT PROCEDURE: CA ECHO LIMITED INDICATIONS: [...] MOHAMUD JUAREZ Signed By:07/11/242121 DD/ 19 TD/TT: High School Assistant Principal: Generic External Data Provider IMG XR PROCEDURES Final Result * (ABNORMAL) C-REACTIVE PROTEIN, CARDIAC (07/11/2024 1:27 PM EST) C-REACTIVE PROTEIN, CARDIAC 9.50(A) 0.00 - 3.00 mg/L [facility] Comment: Relative Risk for Future Cardiovascular Event Low <1.00 Average 1.00 - 3.00 High >3.00 Performed at: [address] [id number] Cafe Or Restaurant Manager: Jasper Jean Baptiste PhD, Phone: [phone] 07/11/2024 1:27 PM EST 07/11/2024 1:29 PM EST Narrative [facility] - 07/12/2024 4:07 AM EST us Generic External Data Provider LAB BLOOD ORDERAB LES Final Result [facility] documented in this encounter Visit Diagnoses Not on filedocumented in this encounter Additional Health Concerns Assessment Noted Time PHQ-9 Depression Total Score: 0 04/26/20 9:00 AM EDT documented as of this encounter Care Teams Booky Relationship Specialty Start Date End Date Nikko Lovelace MD 112 [facility] 110 [place] [address] PCP - Hum[employer] 08/28/17 Nikko Lovelace MD 112 [facility] 110 [place] [address] PCP - General Family Medicine 03/09/23MondayMary LPN [address] [facility] 110 [place] [address] Licensed Practical Nurse Family Medicine 06/21/24 Lorraine Morgan, RN [address] [place] [address] Licensed Practical Nurse Family Medicine 10/04/2411/15 Elaine Saab LPN 112 [facility] 110 [place] [address] 11/15/24 documented as of this encounter
--- OUTSIDE RECORDS SUMMARY | 2025-04-15 13:36 | XMS_ITS | Encounter Summary ---
Author Organization [facility] Address [address] [place] [address] Care Team Providers Care Manufacturing Quality Engineer Name Role Phone Nikko Bird MD Unavailable Nikko Bird MD Primary Care Provider [phone], Mary MANUFACTURING MAINTENANCE MANAGER Unavailable [phone], Mary MANUFACTURING MAINTENANCE MANAGER Unavailable [phone] Lorraine Morgan RN Unavailable Elaine Saab MANUFACTURING MAINTENANCE MANAGER Unavailable Encounter Details Date Type Department Care Team (Late st Contact Info) Description 08/14/2023 Abstract [facility] [place] [facility] [address] [facility] [facility] 110 [place] [address] Nikko Bird MD [address] [facility] 110 [place] [id number] Social History Tobacco Use Types Packs/Day Years [...] CI PODIATRY [address] [place] [address] Emmanuel Gonzalez, DPM 3006 [facility] 5 [place] [address] documented as of this encounter Visit Diagnoses Not on filedocumented in this encounter Care Teams Manufacturing Quality Engineer Relationship Specialty Start Date End Date Nikko Bird MD [address] [place] [address] PCP - Humana 08/28/17 Nikko Bird MD [address] [place] [address] PCP - General Family Medicine 03/09/23MondayMary LPN [address] [place] [address] Licensed Practical Nurse Family Medicine 09/21/2309/21Mary LPN [address] [place] [address] Licensed Practical Nurse Family Medicine 06/21/24 Lorraine Morgan, RN [address] [place] [address] Licensed Practical Nurse Family Medicine 10/04/2411/15 Elaine Saab LPN [address] [place] [address] 11/15/24 documented as of this encounter
--- OUTSIDE RECORDS SUMMARY | 2025-04-15 13:36 | XMS_ITS | Encounter Summary ---
Author Organization [facility] Address [address] [place] [address] Care Team Providers Care Textile Machine Maintenance Mechanic Name Role Phone Nikko Bird MD Unavailable Nikko Bird MD Primary Care Provider [phone], Mary ANDROID SOFTWARE ENGINEER Unavailable [phone] Lorraine Morgan RN Unavailable Saab, Elaine ANDROID SOFTWARE ENGINEER Unavailable Encounter Details Date Type Department Care Team (Late Contact Info) Description 05/14/2024 Abstract [facility] [place] [facility] [address] [place] [address] Nikko Bird MD [address] [place], [place] [address] Social History Tobacco Use Types Packs/Day Years [...] CI PODIATRY [address] 120 [place] [address] Emmanuel Gonzalez DPM 3006 [facility] 5 [place] [address] documented as of this encounter Visit Diagnoses Not on filedocumented in this encounter Additional Health Concerns Assessment Noted Time PHQ-9 Depression Total Score: 0 04/26/20 24 9:00 AM EDT documented as of this encounter Care Teams Textile Machine Maintenance Mechanic Relationship Specialty Start Date End Date Nikko Bird MD [address] [facility] 110 [place] [address] PCP - Humana 08/28/17 Nikko Bird MD [address] [facility] 110 [place] [address] PCP - General Family Medicine 03/09/23MondayMary LPN [address] [facility] 110 [place] [address] Licensed Practical Nurse Family Medicine 06/21/24 Lorraine Morgan, RN [address] [place] [address] Licensed Practical Nurse Family Medicine 10/04/2411/15 Elaine Saab LPN [address] [facility] 110 [place] [address] 11/15/24 documented as of this encounter
--- OUTSIDE RECORDS SUMMARY | 2025-04-15 13:36 | XMS_ITS | Encounter Summary ---
Author Organization [facility] Address [address] [place] [address] Care Team Providers Care Criminal Lawyer Name Role Phone Nikko Bird MD Unavailable Nikko Bird MD Primary Care Provider [phone], Mary HYDRAULIC MINER BLASTING Unavailable [phone] Lorraine Morgan RN Unavailable [phone] Saab, Elaine HYDRAULIC MINER BLASTING Unavailable Encounter Details Date Type Department Care Team (Late Contact Info) Description 05/14/2024 Abstract [facility] [place] [facility] [address] [place] [address] Nikko Bird MD [address] [place], [place] [address] Social History Tobacco Use Types Packs/Day Years [...] CI PODIATRY [address] [place] [address] Emmanuel Gonzalez DPM 3006 [facility] 5 [place] [address] documented as of this encounter Visit Diagnoses Not on filedocumented in this encounter Additional Health Concerns Assessment Noted Time PHQ-9 Depression Total Score: 0 04/26/20 24 9:00 AM EDT documented as of this encounter Care Teams Criminal Lawyer Relationship Specialty Start Date End Date Nikko Bird MD [address] [facility] 110 [place] [address] PCP - Humana 08/28/17 Nikko Bird MD [address] [facility] 110 [place] [address] PCP - General Family Medicine 03/09/23MondayMary LPN [address] [facility] 110 [place] [address] Licensed Practical Nurse Family Medicine 06/21/24 Lorraine Morgan, RN [address] [place] [address] Licensed Practical Nurse Family Medicine 10/04/2411/15 Elaine Saab LPN [address] [facility] 110 [place] [address] 11/15/24 documented as of this encounter
--- OUTSIDE RECORDS SUMMARY | 2025-04-15 13:36 | XMS_ITS | Encounter Summary ---
Author Organization [facility] Address [address] [place] [address] Care Team Providers Care Nurses Assistant Name Role Phone Nikko Bird MD Unavailable Nikko Bird MD Primary Care Provider [phone] Elaine Saab LPN Unavailable Encounter Details Date Type Department Care Team (Late st Contact Info) Description 04/15/2025 Results Follow-Up [facility] [address] [facility] 110 [place] [address] Nikko Bird MD 112 [facility] 110 [place] [address] MR galindo right wo IV contrast Social [...] 0 04/14/2025 [facility] Occupat ional [facility] - Occupational Stress Questionnaire Answer Date [...] were you homeless or living in a snf (including now)? No 06/21/2024 Sex and Gender [...] with Dr. Feliz. Is uspecthe will need retirement antibiotic. Dr. Feliz will probably do a debridement or partial amputtion. He may benefit from being admitted to a SNF for antibiotics. I go to [facility] and [facility] if that is the route that Dr. Feliz recommends ----- Message ----- From: Interface, Incoming Img Psone Background Sent: 04/15/2025 10:00 AM EDT To: Nikko Bird MD documented in this encounter Plan of Treatment Upcoming Encounters Date Type Department Care Team ([facility] st Contact Info) Description 04/24/2025 1:00 PM EDT Office Visit [facility] 112 [facility] 120 [place] [address] Emmanuel Gonzalez DPM 0015 [facility] 5 [place] [address] documented as of this encounter Visit Diagnoses Not on filedocumented in this encounter Additional Health Concerns Assessment Noted Time PHQ-9 Depression Total Score: 0 04/26/20 9:00 AM EDT documented as of this encounter Care Teams Nurses Assistant Relationship Specialty Start Date End Date Nikko Bird MD 112 [facility] 110 [place] [address] PCP - Hum[employer] 08/28/17 Nikko Bird MD [address] [facility] 110 [place] [address] PCP - General Family Medicine 03/09/23 Elaine Saab LPN [address] [facility] 110 [place] [address] 11/15/24 documented as of this encounter
--- OUTSIDE RECORDS SUMMARY | 2025-04-15 13:36 | XMS_ITS | Clinical Summary ---
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 07/15/2021 S/P transmetatarsal [...] (08/08/2018): Added automatically from request for surgery [id number] Assessment & Plan (08/30/2018 3:38 PM EST): [...] this topic Medical Devices Implanted Type Area Patch Setter Device Identifier Shelf Expiration Date Model / Serial / Lot Brothers Altrx Polyethylene Acetabular Liner Neutral 36mm Id 62mm Od Implanted:Qty: 1 on 07/15/2021 by Dashawn Silvestre MD at [email or web address] REV LOC Hip Joint Right: Hip 07/27/2025 / [id number] / [id number] Gription Acetabular Shell Sector 62mm Od Implanted:Qty: 1 on 07/15/2021 by Dashawn Silvestre MD at [email or web address] REV LOC Hip Joint Right: Hip 09/27/2029 / [id number] / [id number] Biolox Delta Ceramic Femoral Head +1.5 36mm Jaki 12/14 Taper Implanted:Qty: 1 on 07/15/2021 by Dashawn Silvestre MD at [facility] Hip Joint Right: Hip 04/27/2026 / [id number] / [id number] [place] Femoral Stem 08/10 Taper Size 7 Mi 133mm Implanted:Qty: 1 on 07/15/2021 by Dashawn Silvestre MD at [facility] Hip Joint Right: Hip 10/25/2025 / [id number] / [id number] Cementralizer Stem Centralizer 12.0mm Cemented Implanted:Qty: 1 on 07/15/2021 by Dashawn Silvestre MD at [facility] Hip Joint Right: Hip 09/27/2025 / 1376-21-000 / [id number] Smart Flex [id number] - [id number] Implanted:Qty: 1 on 08/09/2018 by Isaias Mayen MD at [facility] LOC Left: Leg [employer]ORDIS[employer] [id number] 03/06/2019 [id number] / / [id number] Smart Flex [id number] - [id number] Implanted:Qty: 1 on 08/09/2018 by Isaias Mayen MD at [facility] Left: Leg CORD[employer] [id number] 07/24/2019 [id number] / / [id number] Angio-Seal 6f Vip - [id number] Implanted:Qty: 1 on 08/09/2018 by Isaias Mayen MD at [facility] LOC Right: Groin [facility] [id number] 11/25/2018 [id number] / / [id number] Palacos R 1 X 40 Us - [id number] Implanted:Qty: 1 on 07/15/2021 by Dashawn Silvestre MD at [facility] LOC Right: Hip / / [id number] Pal[place]os Lv 1x40 Single - [id number] Implanted:Qty: 2 on 07/15/2021 by Dashawn Silvestre MD at [facility] LOC Right: Hip HÉCTOR BIOMET [id number] / / [id number] Insurance Medicare [employer] HMO PPO Advance Directives For more information, please contact: [phone] (7:30 AM - 6PM [facility], Monday-Monday) * Full Code (Latest Code Status on File) Date Activated Date Inactivated Comments 07/15/2021 2:40 PM * Full Code Date Activated Date Inactivated Comments 09/03/2018 11:29 AM 07/15/2021 2:40 PM * Full Code Date Activated Date Inactivated Comments 09/01/2011 7:48 AM 09/04/2011 4:13 PM Care Teams Manager Of Radiology Relationship Specialty Start Date End Date Nikko Bird MD 3 [place] [address] PCP - General Family Medicine 07/31/18
--- OUTSIDE RECORDS SUMMARY | 2025-04-15 13:36 | XMS_ITS | Encounter Summary ---
Author Organization [facility] Healthcare Address [address] [place] [address] Care Team Providers Care Leguillon Debeader Name Role Phone Nikko Bird MD Unavailable Nikko Bird MD Primary Care Provider [phone] Elaine Saab LPN Unavailable Encounter Details Date Type Department Care Team (Late st Contact Info) Description 04/15/2025 Patient Outreach [facility] POPULATION [facility] [address] [place] [address] Elaine Saab LPN [address] [facility] 110 [place] [address] Social History Tobacco Use Types [...] 04/14/2025 [facility] of Occupat ional Health - [...] Dr. Feliz. Is uspect he will need penitentiary antibiotic. Dr. Feliz will probably do a debridement or partial amputtion. He may benefit from being admitted to a SNF for antibiotics. I go to [facility] and [facility] if that is the route that Dr. Feliz recommends. Pt voices understanding and is on way to Dr. Feliz appt now. Hisappt starts at 1300. documented in this encounter Plan of Treatment Upcoming Encounters Date Type Department Care Team ([facility] st Contact Info) Description 04/24/2025 1:00 PM EDT Office Visit [facility] 112 [facility] 120 [place] [address] Emmanuel Gonzalez DPM 3006 [facility] 5 [place] [address] documented as of this encounter Visit Diagnoses Diagnosis Stage 3a chronic kidney disease (CMS-HCC)- Primary Chronic diastolic (congestive) heart failure (HCC) documented in this encounter Additional Health Concerns Assessment Noted Time PHQ-9 Depression Total Score: 0 04/26/20 24 9:00 AM EDT documented as of this encounter Care Teams Leguillon Debeader Relationship Specialty Start Date End Date Nikko Bird MD 112 [facility] 110 [place] [address] PCP - Hum[employer] 08/28/17 Nikko Bird MD [address] [id number] PCP - General Family Medicine 03/09/23 Elaine Saab LPN [address] [address] 11/15/24 documented as of this encounter
--- OUTSIDE RECORDS SUMMARY | 2025-04-15 13:36 | XMS_ITS | Encounter Summary ---
Author Organization [facility] Address [address] [place] [address] Care Team Providers Care Manager Laundry Name Role Phone Nikko Bird MD Unavailable Nikko Bird MD Primary Care Provider [phone], Mary MECHANIC FIELD SERVICE Unavailable [phone] Lorraine Morgan RN Unavailable Saab, Elaine MECHANIC FIELD SERVICE Unavailable Encounter Details Date Type Department Care Team (Late Contact Info) Description 05/13/2024 Abstract [facility] [place] [facility] [address] [place] [address] Nikko Bird MD [address] [place], [place] [address] Social History Tobacco Use Types Packs/Day Years [...] CI PODIATRY [address] [place] [address] Emmanuel Gonzalez DPM 3006 [facility] 5 [place] [address] documented as of this encounter Visit Diagnoses Not on filedocumented in this encounter Additional Health Concerns Assessment Noted Time PHQ-9 Depression Total Score: 0 04/26/20 24 9:00 AM EDT documented as of this encounter Care Teams Manager Laundry Relationship Specialty Start Date End Date Nikko Bird MD [address] [facility] 110 [place] [address] PCP - Humana 08/28/17 Nikko Bird MD [address] [facility] 110 [place] [address] PCP - General Family Medicine 03/09/23MondayMary LPN [address] [facility] 110 [place] [address] Licensed Practical Nurse Family Medicine 06/21/24 Lorraine Morgan, RN [address] [place] [address] Licensed Practical Nurse Family Medicine 10/04/2411/15 Elaine Saab LPN [address] [facility] 110 [place] [address] 11/15/24 documented as of this encounter
--- OUTSIDE RECORDS SUMMARY | 2025-04-15 13:36 | XMS_ITS | Encounter Summary ---
Author Organization [facility] Address [address] [place] [address] Care Team Providers Care Compressed Gas Equipment Mechanic Name Role Phone Nikko Bird MD Primary Care Provider [phone] System, Provider Not In Unavailable Unavaila ble Encounter Details Date Type Department Care Team (Latest Contact Info) Description 04/02/2025 Travel Social History Tobacco Use Types Packs/Day Years Used Date Smoking Tobacco: Never Smokeless Tobacco: Never Alcohol Use Standard Drinks/Week Comments Not Currently 0 (1 standard drink = 0.6 oz pur e alcohol) [facility] Utilities Answer Date Recorded In [...] time in the past 12 m [facility], were you homeless or living in a custodial (including now)? No 03/14/2025 Sex and Gender Information Value Date Recorded Sex Assigned at Not on file Legal Sex Male 2:37 PM EDT Gender Identity Male 09/04/2018 8:23 PM EST Sexual Orientation Straight 09/04/2018 8: 23 PM EST documented as of this encounter Plan of Treatment Upcoming Encounters Date Type Department Care Team (Late st Contact Info) Description 04/23/2025 1:00 PM EDT Appointment [facility] [facility] [address] [place] [address] Gracy Millan MD [address] [place] [address] 04/23/2025 2:00 PM EDT Appointment [facility] [facility] [address] [place] [address] Gracy Millan MD [facility] [address] [address] 04/23/2025 3:15 PM EDT Follow-Up [facility] [address] [facility] [address] [place] [phone] Gracy Millan MD [address] [place] [address] documented as of this encounter Visit Diagnoses Not on filedocumented in this encounter Additional Health Concerns Assessment Noted Time PHQ-2 Depression Total Score: 0 03/15/20 25 8:30 PM EDT documented as of this encounter Care Teams Compressed Gas Equipment Mechanic Relationship Specialty Start Date End Date Nikko Bird MD [address] [place] [address] PCP - General Family Medicine 09/04/18 System, Provider Not In [employer] Worker 11/09/22 documented as of this encounter
--- OUTSIDE RECORDS SUMMARY | 2025-04-15 13:36 | XMS_ITS | Encounter Summary ---
Author Organization [facility] Address [address] [place] [address] Care Team Providers Care Cashier Or Checker Stock Clerk Name Role Phone Nikko Bird MD Unavailable Nikko Bird MD Primary Care Provider [phone], Mary PUBLIC HEALTH SANITARIAN TECHNICIAN Unavailable [phone] Lorraine Morgan RN Unavailable Saab, Elaine PUBLIC HEALTH SANITARIAN TECHNICIAN Unavailable Encounter Details Date Type Department Care Team (Late Contact Info) Description 05/01/2024 Abstract [facility] [place] [facility] [address] [place] [address] Nikko Bird MD [address] [place], [place] [address] Social History Tobacco Use Types Packs/Day Years [...] CI PODIATRY [address] [place] [address] Emmanuel Gonzalez DPM 3006 [facility] 5 [place] [address] documented as of this encounter Visit Diagnoses Not on filedocumented in this encounter Additional Health Concerns Assessment Noted Time PHQ-9 Depression Total Score: 0 04/26/20 24 9:00 AM EDT documented as of this encounter Care Teams Cashier Or Checker Stock Clerk Relationship Specialty Start Date End Date Nikko Bird MD [address] [facility] 110 [place] [address] PCP - Hum[employer] 08/28/17 Nikko Bird MD [address] [facility] 110 [place] [address] PCP - General Family Medicine 03/09/23MondayMary LPN [address] [facility] 110 [place] [address] Licensed Practical Nurse Family Medicine 06/21/24 Lorraine Morgan, RN [address] [place] [address] Licensed Practical Nurse Family Medicine 10/04/2411/15 Elaine Saab LPN [address] [facility] 110 [place] [address] 11/15/24 documented as of this encounter
--- OUTSIDE RECORDS SUMMARY | 2025-04-15 13:36 | XMS_ITS | Clinical Summary ---
Author Organization [facility] Address [address] [place] [address] Care Team Providers Care Director Of Field Sales Name Role Phone Nikko Bird MD Primary Care Provider [phone] System, Provider Not In Unavailable Unavaila ble [...] 03/21/20 25 Active naloxone (NARCAN) 4 mg/actuation Tightwad Administer 1 spray into one nostril for [...] Plan (09/07/2018 2:48 PM EST): -Presented to [facility] 09/04/2018 as a transfer from [place] for second opinion regarding left lower extremity [...] in pain -Reports pain is uncontrolled with ROOFER APPRENTICE Dilaudid pump, and pain does not decrease [...] 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 Pt was placed on Xarelto and [...] Team Description 04/02/2025 12:00 PM EDT Follow-Up [facility] [address] [place] [phone] Gracy Millan MD Critical lower limb ischemia (HCC) (Primary Dx) 04/02/2025 Travel 03/18/2025 Documentation [facility] [address] [place] [phone] Brenna Galloway RN 03/17/2025 12:20 PM EDT Anesthesia Event [facility] [address] [place] [address] Skyler Gil MD Reardon, Michael E., MD 03/17/2025 12:10 PM EDT - 03/17/2025 5:10 PM EDT Surgery [address] [address] Gracy Millan MD RIGHT FEMORAL TO TIBIAL BYPASS WITH ARM VEIN. Angiogram 03/14/2025 11:04 AM EDT - 03/21/2025 6:29 PM EDT Hospital Encounter [facility] Vascular Thoracic Surgery [address] [phone] Elaine Macdonald MD Physicians, [facility] Gilbert Hernández DO Dooling, Patrick Cassidy, MD Discharge Disposition: Home 03/14/2025 10:00 AM EDT Office Visit [facility] [address] [place] [phone] Gracy Millan MD Hoover, Elaine Kurtz, KAMARI Acute pain of right lower extremity (Primary Dx) 03/14/2025 7:30 AM EDT - 03/14/2025 11:59 PM EDT Hospital Encounter [facility] Peripheral Vascular Lab [address] [place] [phone] Gracy Millan MD Discharge Disposition: Home 03/14/2025 7:26 AM EDT - 03/14/2025 11:59 PM EDT Hospital Encounter [facility] [address] [place] [address] Gracy Millan MD Discharge Disposition: Home 03/14/2025 Documentation [facility] [address] [place] [phone] Ludivina Garcia, RN 03/14/2025 Documentation [facility] [address] [place] [phone] Ludivina Garcia, RN 03/14/2025 Travel 03/13/2025 Documentation [facility] [address] [place] [address] Ludivina Garcia, RN from Last 3 Months Immunizations Immunization Administration Dates Next Due INFLUENZA IIV3 65+YO FLUAD [id number] 06/18/2019 Influenza, Injectable, Quadrivalent 05/22/2017 Influenza, high [...] drink = 0.6 oz pur e alcohol) [facility] Utilities Answer Date Recorded In the past 12 months has [employer], gas, oil, or water [employer] threatened to shut off services in your [...] any time in the past 12 m [facility], were you homeless or living in a fci (including now)? No 03/14/2025 Sex and Gender [...] Info) Description 04/23/2025 1:00 PM EDT Appointment [facility] [address] [place] [address] Gracy Millan MD [address] [place] [id number] 04/23/2025 2:00 PM EDT Appointment [facility] [address] [place] [address] Gracy Millan MD [address] [place] [address] 04/23/2025 3:15 PM EDT Follow-Up [facility] [address] [place] [phone] Gracy Millan MD [address] [place] [id number] Health Maintenance Due Date Last Done Comments [...] 03/15/2026 03/15/2025 Medical Devices Implanted Type Area Python Engineer Device Identifier Shelf Expiration Date Model / Serial / Lot Hemostat 2 X 4in Surgicel Fibrillar - [id number] Implanted:Qty: 1 on 09/07/2018 by Gracy Millan MD at [facility] Left: Leg [employer] 02/24/20211961 / / [id number] Hemostat 2 X 4in Surgicel Fibrillar - Sna Implanted:Qty: 1 on 03/17/2025 by Gracy Millan MD at [facility] 05/27/20271961 / NA / [id number] Sealant 10ml Hemostatic Matrix Fast Prep Floseal W/Recothrom - [id number] Implanted:Qty: 1 on 03/17/2025 by Gracy Millan MD at [facility] Right: Arterial DEL CASTILLO BIO [id number] 10/30/2026 [id number] / / [id number] Procedures Procedure Name Priority Date/Time Associated Diagnosis [...] IV Routine 03/17/2025 12:4 0 PM EDT MS ARTL CATHJ/CANNULJ MNTR/TRANSFUSION SPX PRQ Routine 03/17/2025 12:40 PM EDT AIRWAY ETT Routine 03/17/2025 12:40 PM EDT MS BYP FEM-ANT TIBL PST TIBL PRONEAL ART/OTH [...] - 11.00 K/mcL 03/21/2025 6:41 AM EDT [facility] RBC 3.16(L) 4.50 - 5.90 M/mcL 03/21/2025 6:41 AM EDT [facility] Hemoglobin 10.5(L) 13.5 - 17.5 g/dL 03/21/2025 6:41 AM EDT [facility] Hematocrit 30.0(L) 41.0 - 53.0 % 03/21/2025 6:41 AM EDT [facility] MCV 94.9 80.0 - 100.0 fL 03/21/2025 6:41 AM EDT [facility] MCH 33.2 26.0 - 34.0 pg 03/21/2025 6:41 AM EDT [facility] MCHC 35.0 31.0 - 37.0 g/dL 03/21/2025 6:41 AM EDT [facility] Platelets 213 150 - 400 K/mcL 03/21/2025 6:41 AM [facility] RDW - CV 13.7 11.6 - 14.8 % 03/21/2025 6:41 AM EDT [facility] MPV 9.7 9.4 - 12.4 fL 03/21/2025 6:41 AM [facility] Nucleated RBC 0.0 % 03/21/2025 6:41 AM [facility] Nucleated RBC Abs 0.00 0.00 - 0.00 K/mcL 03/21/2025 6:41 AM [facility] Blood BLOOD SPECIMEN / Unknown Venipuncture / Unknown 03/21/2025 6:06 AM EDT 03/21/2025 6:20 AM EDT Skyler Otto MD LAB BLOOD ORDERABLES Final Result [facility] [address] [place] [address] * Magnesium (03/21/2025 6:06 AM EDT) Only the most recent of7 resultswithin the time period is included. Magnesium 2.1 1.6 - 2.4 mg/dL 03/21/2025 6:54 AM T [facility] Blood BLOOD SPECIMEN / Unknown Venipuncture / Unknown 03/21/2025 6:06 AM EDT 03/21/2025 6:20 AM EDT us Skyler Otto MD LAB BLOOD ORDERABLES Final Result [facility] [address] [place] [address] * (ABNORMAL) Basic Metabolic Panel (03/21/2025 6:06 AM EDT) Only the most recent of7 resultswithin the time period is included. Sodium 140 135 - 145 mmol/L 03/21/2025 6:54 AM [facility] Potassium 4.0 3.5 - 5.1 mmol/L 03/21/2025 6:54 AM [facility] Comment:Slightly Hemolyzed Chloride 108 98 - 108 mmol/L 03/21/2025 6:54 AM [facility] Bicarbonate 22 21 - 32 mmol/L 03/21/2025 6:54 AM [facility] Anion Gap 14 10 - 20 mmol/L 03/21/2025 6:54 AM [facility] Glucose 109(H) 65 - 99 mg/dL 03/21/2025 6:54 AM [facility] BUN 19 8 - 25 mg/dL 03/21/2025 6:54 AM [facility] Creatinine 0.98 0.80 - 1.30 mg/dL 03/21/2025 6:54 AM [facility] eGFR 75 >=60 mL/min/1.7 3 m2 03/21/2025 6:54 AM [facility] Comment:Estimated GFR was ca lculated using the 2020 CKD-EPI creatinine equation. BUN/Creatinine Ratio 19.4 10.0 - 20.0 03/21/2025 6:54 AM [facility] Calcium 9.4 8.4 - 10.2 mg/dL 03/21/2025 6:54 AM [facility] Blood BLOOD SPECIMEN / Unknown Venipuncture / Unknown 03/21/2025 6:06 AM EDT 03/21/2025 6:20 AM EDT Narrative [facility] - 03/21/2025 6:54 AM EDT [facility] Laboratory Services has implemented the eGFR calculation approach that does not have a coefficient for race that conforms to the NKF-ASN Task Force Recommendations. us Skyler Otto MD LAB BLOOD ORDERABLES Final Result [facility] [address] [place] [address] * US Doppler ankle/brachial index (03/20/2025 9:00 AM EDT) Only the most recent of2 resultswithin the time period is included. 03/20/2025 8:42 AM EDT Narrative MAUROI SYNAPSE CV - 03/20/2025 9:40 AM EDT Patient Info Name: Tristin Gray Age: 85 years : 1940 Gender: Male Exam Date: 03/20/2025 8:42 AM Patient Status: INPATIENT Site Location: [facility] Indications I73.9 - Peripheral vascular disease, unspecified Procedure Description 44446 Limited bilateral noninvasive physiologic studies of upper or lower extremity arteries with bidirectional Doppler/PVR waveform analysis at 1-2 levels. Manager Financial Services: Maggy Dempsey T Staff Ordering Physician: Alexei [...] Segmental BP RIGHT Brachial A mmH RIGHT DIRECTOR GLOBAL DEVELOPMENT mmH RIGHT DIRECTOR GLOBAL DEVELOPMENT Index: 0.53 RIGHT DPA mmH RIGHT DPA Index: 0.57 RIGHT Digit mmH RIGHT YAMILE Index: 0.57 RIGHT TBI Index: 0.00 LEFT DIRECTOR GLOBAL DEVELOPMENT Index: 0.36 LEFT DIRECTOR GLOBAL DEVELOPMENT mmH LEFT DPA Index: 0.41 LEFT DPA mmH LEFT YAMILE Index: 0.41 Doppler RIGHT DIRECTOR GLOBAL DEVELOPMENT Waveform: Monophasic RIGHT DPA Waveform: Monophasic LEFT DIRECTOR GLOBAL DEVELOPMENT Waveform: Monophasic LEFT DPA Waveform: Monophasic , [...] 8:42 AM Patient Status: INPATIENT Site Location: [facility] Indications I73.9 - Peripheral vascular disease, unspecified Procedure Description 00729 Limited bilateral noninvasive physiologic studies of upper orlower extremity arteries with bidirectional Doppler/PVR waveform analysis at1-2 levels. Manager Financial Services: Maggy Dempsey T Staff Ordering Physician: Alexei [...] Segmental BP RIGHT Brachial A mmH RIGHT DIRECTOR GLOBAL DEVELOPMENT mmH RIGHT DIRECTOR GLOBAL DEVELOPMENT Index: 0.53 RIGHT DPA mmH RIGHT DPA Index: 0.57 RIGHT Digit mmH RIGHT YAMILE Index: 0.57 RIGHT TBI Index: 0.00 LEFT DIRECTOR GLOBAL DEVELOPMENT Index: 0.36 LEFT DIRECTOR GLOBAL DEVELOPMENT mmH LEFT DPA Index: 0.41 LEFT DPA mmH LEFT YAMILE Index: 0.41 Doppler RIGHT DIRECTOR GLOBAL DEVELOPMENT Waveform: Monophasic RIGHT DPA Waveform: Monophasic LEFT DIRECTOR GLOBAL DEVELOPMENT Waveform: Monophasic LEFT DPA Waveform: Monophasic , [...] - 17.5 g/dL 03/17/2025 11:30 PM EDT [facility] Hematocrit 30.5(L) 41.0 - 53.0 % 03/17/2025 11:30 PM EDT [facility] Blood BLOOD SPECIMEN / Unknown Venipuncture / Unknown 03/17/2025 11:09 PM EDT 03/17/2025 11:26 PM EDT us Ana Luisa Murray MD LAB BLOOD ORDERABLES Final Resul t Performing Organization Address [facility] Co de Phone Number [facility] [place] [address] * XR OR Angio Lower Extremity Right [...] angiogram. Refer to the operativereport for details. [employer]pji Workstation ID: [id number] us Gracy Millan MD [...] of attempts: 1 us Serjio Olivarez MD MS ANESTHESIA Final Re sult * MS ARTL CATHJ/CANNULJ MNTR/TRANSFUSION SPX PRQ (03/17/2025 12:40 PM EDT) Narrative Serjio Olivarez MD - 03/17/2025 12:40 PM EDT Serjio Olivarez MD 03/17/2025 12:40 PM Arterial Line Patient location: OR Start time: 03/17/2025 12:31 PM End time: 03/17/2025 12:33 PM Staff Anesthesiologist: Serjio Olivarze MD Performed by: Anesthesiologist Preanesthetic Checklist Completed: patient identified, pre-op evaluation, risks and benefits discussed, informed consent obtained, monitors and equipment checked, IV checked and timeout performed Procedure Indications: hemodynamic monitoring and frequent blood draws Final orientation: right Final location: radial Monitoring: property assessment monitor, pulse oximetry, heart rate and BP Sedation: general anesthesia (see MAR) Prep: ChloraPrep Local infiltration: lidocaine 1% Technique: landmarks (Palpation) Final needle: 22 G Final catheter: 20 G x 1 3/4'' Number of attempts: 1 Assessment: draws and flushes without difficulty Post procedure: taped, sterile dressing applied and EBL <10 mL Patient tolerance: patient tolerated the procedure well with no immediate complications Result [facility] Serjio Olivarez MD MS ANESTHESIA Final Re sult * ETT Airway [...] Bite block: none Lip/tooth/tongue trauma: no Result [facility] Serjio Olivarez MD MS ANESTHESIA Final Re sult * (ABNORMAL) POC Glucose (03/17/2025 11:01 AM EDT) Pathologist [facility] [place] Glucose 105(H) 65 - 99 mg/dL 03/17/2025 11:02 AM EDT [facility] Blood BLOOD SPECIMEN / Unknown 03/17/2025 11:01 AM EDT 03/17/2025 11:02 AM EDT Result [facility] POCT ORDERABLES - DEV ICE Final Result Performing Organization Address City/[facility] Co de Phone Number [facility] [address] [place] [address] * (ABNORMAL) APTT Heparin Coverage (03/17/2025 3:53 AM EDT) Only the most recent of4 resultswithin the time period is included. APTT 92(H) 23 - 34 seconds 03/17/2025 5:14 AM EDT [facility] Blood BLOOD SPECIMEN / Unknown Venipuncture / Unknown 03/17/2025 3:53 AM EDT 03/17/2025 4:29 AM EDT Narrative [facility] - 03/17/2025 5:14 AM EDT Therapeutic range for APTT's is 68 - 104 seconds us Gracy Millan MD LAB BLOOD ORDERABLES Final Result Performing Organization Address [facility] Co de Phone Number [facility] [address] [place] [address] * ECG 12 Lead (03/16/2025 11:44 AM EDT) Only the most recent of3 resultswithin the time period is included. Ventricular Rate 63 BPM MUSE Atrial Rate 63 BPM MUSE P-R Interval 208 ms MUSE QRS Duration 102 ms MUSE Q-T Interval 454 ms MUSE QTC Calculation (Bezet) 464 ms MUSE P Foster 86 degrees MUSE R Foster 45 degrees MUSE T Foster 44 degrees MUSE 03/16/2025 11:4 4 AM EDT 03/17/2025 7:58 AM EDT Narrative MUSE - 03/17/2025 7:58 AM EDT Sinus rhythm with Premature supraventricular complexes Otherwise normal ECG Confirmed by MARY CARLTON ([id number]) on 03/17/2025 7:58:31 AM us Ana Luisa Murray MD ECG ORDERABLES Final Result Performing Organization Address City/[facility]/ZIP Co de Phone Number MUSE * (ABNORMAL) PT/INR (03/16/2025 9:07 AM EDT) Only the most recent of2 resultswithin the time period is included. [facility] Protime (PT) 14.7(H) 11.8 - 14.3 seconds 03/16/2025 10:22 AM EDT [facility] INR 1.1 0.8 - 1.1 03/16/2025 10:22 AM EDT [facility] Blood BLOOD SPECIMEN / Unknown Venipuncture / Unknown 03/16/2025 9:07 AM EDT 03/16/2025 9:48 AM EDT Narrative [facility] - 03/16/2025 10:22 AM EDT During the induction phase of oral anticoagulation, the INR may not reflect the anticoagulation status of the patient. Therapeutic ranges for INR's are: Most clinical situations: INR 2.0-3.0 Mechanical Prosthetic Valve: INR 2.5-3.5 Critical: INR >5.0 Alexei Salomon MD LAB BLOOD ORDERABLES Final Res ult [facility] [address] [place] [address] * Type and Screen (03/16/2025 9:07 AM EDT) [facility] ABORh O Positive 03/16/2025 10:37 AM EDT [facility] Antibody Screen Negative 03/16/2025 10:37 AM EDT [facility] Specimen Expires 03/19/2025 23:59 EST 03/16/2025 10:37 AM EDT [facility] Blood BLOOD SPECIMEN / Unknown Venipuncture / Unknown 03/16/2025 9:07 AM EDT 03/16/2025 9:48 AM EDT Alexei Salomon MD BLOOD BANK TEST ORDERABLES Fin al Result [facility] [address] [place] [address] * APTT (03/15/2025 7:52 PM EDT) [facility] APTT 33 23 - 34 seconds 03/15/2025 8:14 PM EDT [facility] Blood BLOOD SPECIMEN / Unknown Venipuncture / Unknown 03/15/2025 7:52 PM EDT 03/15/2025 7:56 PM EDT Narrative [facility] - 03/15/2025 8:14 PM EDT Therapeutic range for APTT's is 68 - 104 seconds us Mary Madrigal MD LAB BLOOD ORDERABLE S Final Result [facility] [address] [place] [address] * Ultrasound Saphenous vein mapping (03/14/2025 9:56 PM EDT) 03/14/2025 9:26 PM EDT Narrative FUJI SYNAPSE CV - 03/16/2025 11:15 AM EDT Patient Info Name: Tristin Gray Age: 85 years : 1940 Gender: Male Exam Date: 03/14/2025 9:26 PM Patient Status: INPATIENT Site Location: [facility] Indications Z01.810 - Encounter for preprocedural cardiovascular examination Procedure Description 44852 Duplex examination using B-mode, color and spectral Doppler of extremity veins including responses to compression and other maneuvers; complete bilateral study. Manager Financial Services: Cristian Ellis RVT, [facility] Staff Ordering Physician: Alexei Salomon Conclusions * [...] 9:26 PM Patient Status: INPATIENT Site Location: [facility] Indications Z01.810 - Encounter for preprocedural cardiovascular examination Procedure Description 89795 Duplex examination using B-mode, color and spectral Doppler of extremity veins including responses to compression and other maneuvers; complete bilateral study. Manager Financial Services: Cristian Ellis RVT, [facility] Staff Ordering Physician: Alexei Salomon Conclusions * [...] 9:20 PM Patient Status: INPATIENT Site Location: [facility] Indications Z01.810 - Encounter for preprocedural cardiovascular examination Procedure Description 20685 Duplex examination using B-mode, color and spectral Doppler of extremity veins including responses to compression and other maneuvers; complete bilateral study. Manager Financial Services: Cristian Ellis RVT, [facility] Staff Ordering Physician: Alexei Salomon Conclusions * [...] 9:20 PM Patient Status: INPATIENT Site Location: [facility] Indications Z01.810 - Encounter for preprocedural cardiovascular examination Procedure Description 05876 Duplex examination using B-mode, color and spectral Doppler of extremity veins including responses to compression and other maneuvers; complete bilateral study. Manager Financial Services: Cristian Ellis RVT, [facility] Staff Ordering Physician: Alexei Salomon Conclusions * [...] ORDERABLES Final R esult Performing Organization Address City/[facility]/ZIP Co de Phone Number FUJI SYNAPSE CV * Gold Top (03/14/2025 11:28 AM EDT) Extra Tube Hold for add-ons. 03/14/2025 3:59 PM EDT [facility] Comment:Auto resulted. Blood BLOOD SPECIMEN / Unknown Venipuncture / Unknown 03/14/2025 11:28 AM EDT 03/14/2025 11:32 AM EDT us Elaine Macdonald MD LAB BLOOD ORDERABLES Fin al Result [facility] [address] [place] [address] * Chao Top (03/14/2025 11:28 AM EDT) Extra Tube Hold for add-ons. 03/14/2025 1:58 PM EDT [facility] Comment:Auto resulted. Blood BLOOD SPECIMEN / Unknown Venipuncture / Unknown 03/14/2025 11:28 AM EDT 03/14/2025 11:32 AM EDT us Elaine Macdonald MD LAB BLOOD ORDERABLES Fin al Result [facility] [address] [place] [address] * [place] Top (03/14/2025 11:28 AM EDT) Blood BLOOD SPECIMEN / Unknown Venipuncture / Unknown 03/14/2025 11:28 AM EDT 03/14/2025 11:32 AM EDT Elaine Macdonald MD LAB BLOOD ORDERABLES Fin al Result [facility] [address] [place] [address] * (ABNORMAL) Chem 7 (03/14/2025 11:28 AM EDT) Sodium 139 135 - 145 mmol/L 03/14/2025 12:09 PM [facility] Potassium 3.8 3.5 - 5.1 mmol/L 03/14/2025 12:09 PM [facility] Chloride 102 98 - 108 mmol/L 03/14/2025 12:09 PM [facility] Bicarbonate 25 21 - 32 mmol/L 03/14/2025 12:09 PM [facility] Anion Gap 16 10 - 20 mmol/L 03/14/2025 12:09 PM [facility] Glucose 100(H) 65 - 99 mg/dL 03/14/2025 12:09 PM [facility] BUN 20 8 - 25 mg/dL 03/14/2025 12:09 PM [facility] Creatinine 1.12 0.80 - 1.30 mg/dL 03/14/2025 12:09 PM [facility] eGFR 64 >=60 mL/min/1.7 3 m2 03/14/2025 12:09 PM [facility] Comment:Estimated GFR was ca lculated using the 2020 CKD-EPI creatinine equation. BUN/Creatinine Ratio 17.9 10.0 - 20.0 03/14/2025 12:09 PM EDT [facility] Blood BLOOD SPECIMEN / Unknown Venipuncture / Unknown 03/14/2025 11:28 AM EDT 03/14/2025 11:32 AM EDT [facility] - 03/14/2025 12:09 PM EDT [facility] Laboratory Services has implemented the eGFR calculation approach that does not have a coefficient for race that conforms to the NKF-ASN Task Force Recommendations. Dashawn Stallings PA-C LAB BLOOD ORDERABLES F inal Result [facility] [address] [place] [address] * (ABNORMAL) CBC Auto Differential (03/14/2025 11:28 AM EDT) WBC 3.50(L) 4.50 - 11.00 K/mcL 03/14/2025 12:15 PM EDT [facility] RBC 4.34(L) 4.50 - 5.90 M/mcL 03/14/2025 12:15 PM [facility] Hemoglobin 13.2(L) 13.5 - 17.5 g/dL 03/14/2025 12:15 PM [facility] Hematocrit 39.3(L) 41.0 - 53.0 % 03/14/2025 12:15 PM [facility] MCV 90.6 80.0 - 100.0 fL 03/14/2025 12:[facility] MCH 30.4 26.0 - 34.0 pg 03/14/2025 12:15 PM [facility] MCHC 33.6 31.0 - 37.0 g/dL 03/14/2025 12:15 PM [facility] Platelets 173 150 - 400 K/mcL 03/14/2025 12:15 PM [facility] RDW - CV 13.5 11.6 - 14.8 % 03/14/2025 12:15 PM [facility] MPV 9.3(L) 9.4 - 12.4 fL 03/14/2025 12:15 PM [facility] Neutrophils 54.0 % 03/14/2025 12:15 PM [facility] Comment:Peripheral smear rev iewed manually Lymphocytes 18.6 % 03/14/2025 12:15 PM [facility] Monocytes 23.1 % 03/14/2025 12:15 PM [facility] Eosinophils 3.4 % 03/14/2025 12:15 PM [facility] Basophils 0.6 % 03/14/2025 12:15 PM [facility] IG Percent 0.30 % 03/14/2025 12:15 PM [facility] Comment:The IG parameter is the percentage of metamyelocytes, myelocytes and promyelocytes. An immature granulocyte count (IG) of 1% or more suggests the possibility of infection, an IG count of 3% is very likely related to an infection. Neutrophils Abs 1.89 1.70 - 7.00 K/mcL 03/14/2025 12:15 PM [facility] Lymphocytes Abs 0.65(L) 0.90 - 4.00 K/mcL 03/14/2025 12:15 PM [facility] Monocytes Abs 0.81 0.30 - 0.90 K/mcL 03/14/2025 12:15 PM [facility] Eosinophils Abs 0.12 0.00 - 0.50 K/mcL 03/14/2025 12:15 PM [facility] Basophils Abs 0.02 0.00 - 0.30 K/mcL 03/14/2025 12:15 PM [facility] IG Absolute 0.01 0.00 - 0.30 K/mcL 03/14/2025 12:15 PM [facility] Nucleated RBC 0.0 % 03/14/2025 12:15 PM [facility] Nucleated RBC Abs 0.00 0.00 - 0.00 K/mcL 03/14/2025 12:15 PM [facility] Blood BLOOD SPECIMEN / Unknown Venipuncture / Unknown 03/14/2025 11:28 AM EDT 03/14/2025 11:32 AM EDT us Dashawn Stallings PA-C LAB BLOOD ORDERABLES F inal Result [facility] [address] [place] [address] * Ultrasound duplex arterial leg right (03/14/2025 9:15 AM EDT) 03/14/2025 8:20 AM EDT Narrative FUJI SYNAPSE CV - 03/14/2025 11:57 AM EDT Patient Info Name: Tristin Gray Age: 85 years : 1940 Gender: Male Exam Date: 03/14/2025 8:20 AM Patient Status: OUTPATIENT Site Location: [facility] Indications I73.9 - Peripheral vascular disease, unspecified Procedure Description [id number] Duplex scan of lower extremity arteries or arterial bypass grafts using B-mode, color and spectral Doppler; unilateral or limited study. Manager Financial Services: Ernestina Campos RVT, [facility] Staff Ordering Physician: Gracy Millan MD, RPVI Conclusions * 50-99% stenosis in the right mid superficial femoral artery. * Unable to obtain right external iliac artery images due to bandaging from recent procedure. Risk Factors Patient with a history of hypertension, hyperlipidemia, CAD and PAD. Measurements RIGHT FIRE CONTROLMAN PSV (cm/s): 115 RIGHT FIRE CONTROLMAN EDV (cm/s): 7 RIGHT Prox PFA PSV [...] Distal LAUREL EDV (cm/s): 6 RIGHT Prox DIRECTOR GLOBAL DEVELOPMENT PSV (cm/s): 81 RIGHT Prox DIRECTOR GLOBAL DEVELOPMENT EDV (cm/s): 14 RIGHT Mid DIRECTOR GLOBAL DEVELOPMENT PSV (cm/s): 38 RIGHT Mid DIRECTOR GLOBAL DEVELOPMENT EDV (cm/s): 6 RIGHT Distal DIRECTOR GLOBAL DEVELOPMENT PSV (cm/s): 57 RIGHT Distal DIRECTOR GLOBAL DEVELOPMENT EDV (cm/s): 20 RIGHT Prox Gabriela PSV [...] 8:20 AM Patient Status: OUTPATIENT Site Location: [facility] Indications I73.9 - Peripheral vascular disease, unspecified Procedure Description [id number] Duplex scan of lower extremity arteries or arterial bypassgrafts using B-mode, color and spectral Doppler; unilateral or limited study. Manager Financial Services: Ernestina Campos RVT, RDID Staff Ordering Physician: Gracy Millan MD, RPLUIZA Conclusions * 50-99% stenosis in the right mid superficial femoral artery. * Unable to obtain right external iliac artery images due to bandagingfrom recent procedure. Risk Factors Patient with a history of hypertension, hyperlipidemia, CAD and PAD. Measurements RIGHT FIRE CONTROLMAN PSV (cm/s): 115 RIGHT FIRE CONTROLMAN EDV (cm/s): 7 RIGHT Prox PFA PSV [...] Distal LAUREL EDV (cm/s): 6 RIGHT Prox DIRECTOR GLOBAL DEVELOPMENT PSV (cm/s): 81 RIGHT Prox DIRECTOR GLOBAL DEVELOPMENT EDV (cm/s): 14 RIGHT Mid DIRECTOR GLOBAL DEVELOPMENT PSV (cm/s): 38 RIGHT Mid DIRECTOR GLOBAL DEVELOPMENT EDV (cm/s): 6 RIGHT Distal DIRECTOR GLOBAL DEVELOPMENT PSV (cm/s): 57 RIGHT Distal DIRECTOR GLOBAL DEVELOPMENT EDV (cm/s): 20 RIGHT Prox Gabriela PSV [...] Radha Lomas DO, RVT, RPVI, FSVM on 07/18/660318:57 AM us Gracy Millan MD CV VASCULAR ORDERABLES Fin al Result FUJI SYNAPSE CV * ELECTROPHYSIOLOGY REPORT (03/12/2025) 03/12/2025 us Gracy Millan MD SCANNED ORDERS Final Resu lt from Last 3 Months Insurance [id number] (Home) [address] [place] [id number] [facility] ADVANTAGE CHOICE PPO Advance Directives For more information, please contact: [phone] Documents on File Type Date Recorded Patient Tortilla Maker Expl anation Power of Cell Attendant 10/13/2018 9:03 PM RECEI SKIP 10/13/2018 * [...] 12:09 AM 01/21/2022 5:56 PM Care Teams Director Of Field Sales Relationship Specialty Start Date End Date Nikko Bird MD [address] [place] [address] PCP - General Family Medicine 09/04/18 System, Provider Not In Decontamination Worker 11/09/22
--- OUTSIDE RECORDS SUMMARY | 2025-04-15 13:36 | XMS_ITS | Encounter Summary ---
Author Organization [facility] Address [address] [place] [address] Care Team Providers Care Supervisor Boiler Repair Name Role Phone Nikko Bird MD Unavailable Nikko Bird MD Primary Care Provider [phone], Mary MANAGER STERILE PROCESSING Unavailable [phone], Mary MANAGER STERILE PROCESSING Unavailable [phone] Lorraine Morgan RN Unavailable Elaine Saab MANAGER STERILE PROCESSING Unavailable Encounter Details Date Type Department Care Team (Late st Contact Info) Description 06/26/2023 Abstract [facility] [place] [facility] [address] [facility] 110 [place] [address] Nikko Bird MD [address] [facility] [address] [place] [id number] Social History Tobacco Use Types Packs/Day Years [...] CI PODIATRY [address] [place] [address] Emmanuel Gonzalez, DPM [address] [facility] 5 [place] [address] documented as of this encounter Visit Diagnoses Not on filedocumented in this encounter Care Teams Supervisor Boiler Repair Relationship Specialty Start Date End Date Nikko Bird MD [address] [place] [address] PCP - [employer] 08/28/17 Nikko Bird MD [address] [place] [address] PCP - General Family Medicine 03/09/23MondayMary LPN [address] [place] [address] Licensed Practical Nurse Family Medicine 09/21/2309/21Mary LPN [address] [place] [address] Licensed Practical Nurse Family Medicine 06/21/24 Lorraine Morgan, RN [address] [place] [address] Licensed Practical Nurse Family Medicine 10/04/2411/15 Elaine Saab LPN [address] [place] [address] 11/15/24 documented as of this encounter
--- OUTSIDE RECORDS SUMMARY | 2025-04-15 13:36 | XMS_ITS | Encounter Summary ---
Author Organization [facility] Address [address] [place] [address] Care Team Providers Care Roof Painter Name Role Phone Nikko Bird MD Unavailable Nikko Bird MD Primary Care Provider [phone], Mary WRIGHTN Unavailable [phone], Mary CHISEL MORTISER OPERATOR Unavailable [phone] Lorraine Morgan RN Unavailable [phone] Elaine Saab CHISEL MORTISER OPERATOR Unavailable Encounter Details Date Type Department Care Team (Late st Contact Info) Description 06/14/2023 Abstract [facility] [place] [facility] [address] [facility] 110 [place] [address] Nikko Bird MD [address] [facility] 110 [place] [address] Social History Tobacco Use Types Packs/Day Years [...] PODIATRY [address] [place] [address] Emmanuel Gonzalez, DPJenni 3006 [facility] 5 [place] [address] documented as of this encounter Visit Diagnoses Not on filedocumented in this encounter Care Teams Roof Painter Relationship Specialty Start Date End Date Nikko Bird MD [address] [place] [address] PCP - [employer] 08/28/17 Nikko Bird MD [address] [place] [address] PCP - General Family Medicine 03/09/23MondayMary LPN [address] [place] [address] Licensed Practical Nurse Family Medicine 09/21/2309/21Mary LPN [address] [place] [address] Licensed Practical Nurse Family Medicine 06/21/24 Lorraine Morgan, RN [address] [place] [address] Licensed Practical Nurse Family Medicine 10/04/2411/15 Elaine Saab LPN [address] [place] [address] 11/15/24 documented as of this encounter
--- OUTSIDE RECORDS SUMMARY | 2025-04-15 13:36 | XMS_ITS | Encounter Summary ---
Author Organization [facility] Address [address] [place] [address] Care Team Providers Care Deck Engine Operator Name Role Phone Nikko Bird MD Unavailable Nikko Bird MD Primary Care Provider [phone], Mary WAISTLINE JOINER Unavailable [phone] Lorraine Morgan RN Unavailable [phone] Saab, Elaine WAISTLINE JOINER Unavailable Encounter Details Date Type Department Care Team (Late Contact Info) Description 05/13/2024 Abstract [facility] [place] [facility] [address] [place] [address] Nikko Bird MD [address] [place], [place] [address] Social History Tobacco Use Types Packs/Day Years [...] CI PODIATRY [address] [place] [address] Emmanuel Gonzalez DPM 3006 [facility] 5 [place] [address] documented as of this encounter Visit Diagnoses Not on filedocumented in this encounter Additional Health Concerns Assessment Noted Time PHQ-9 Depression Total Score: 0 04/26/20 24 9:00 AM EDT documented as of this encounter Care Teams Deck Engine Operator Relationship Specialty Start Date End Date Nikko Bird MD [address] [facility] 110 [place] [address] PCP - [employer] 08/28/17 Nikko Bird MD [address] [facility] [address] [place] [address] PCP - General Family Medicine 03/09/23MondayMary LPN [address] [facility] 110 [place] [address] Licensed Practical Nurse Family Medicine 06/21/24 Lorraine Morgan, RN [address] [place] [address] Licensed Practical Nurse Family Medicine 10/04/2411/15 Elaine Saab LPN [address] [facility] [address] [place] [address] 11/15/24 documented as of this encounter
--- OUTSIDE RECORDS SUMMARY | 2025-04-15 13:36 | XMS_ITS | Encounter Summary ---
Author Organization [facility] Address [address] [place] [address] Care Team Providers Care Assistant Offset Press Operator Name Role Phone Nikko Bird MD Unavailable Nikko Bird MD Primary Care Provider [phone], Mary WRIGHTN Unavailable [phone] Lorraine Morgan RN Unavailable [phone] Saab, Elaine ENGINEERING LIBRARIAN Unavailable Encounter Details Date Type Department Care Team (Late st Contact Info) Description 07/10/2024 Abstract [facility] 112 [facility] 110 [place] [address] Nikko Bird MD 112 [facility] 110 [place] [address] Social History Tobacco Use Types Packs/Day Years [...] Recorded Patient Health Questionnaire-2 Score 0 04/26/2024 [facility] - Occupational [...] the past 12 m [facility], were you homeless or living [...] BRIGID PODIATRY [address] [place] [address] Emmanuel Gonzalez DPM 3006 [facility] 5 [place] [address] documented as of this encounter Visit Diagnoses Not on filedocumented in this encounter Additional Health Concerns Assessment Noted Time PHQ-9 Depression Total Score: 0 04/26/20 9:00 AM EDT documented as of this encounter Care Teams Assistant Offset Press Operator Relationship Specialty Start Date End Date Nikko Bird MD [address] [place] [address] PCP - [employer] 08/28/17 Nikko Bird MD [address] [place] [address] PCP - General Family Medicine 03/09/23MondayMary LPN [address] [place] [address] Licensed Practical Nurse Family Medicine 06/21/24 Lorraine Morgan, KULDEEP [address] [place] [address] Licensed Practical Nurse Family Medicine 10/04/2411/15 Elaine Saab LPN 112 [facility] 110 [place] [address] 11/15/24 documented as of this encounter
--- OUTSIDE RECORDS SUMMARY | 2025-04-15 13:36 | XMS_ITS | Encounter Summary ---
Author Organization [facility] Address [address] [place] [address] Care Team Providers Care Air Crew Officer Name Role Phone Nikko Bird MD Unavailable Nikko Bird MD Primary Care Provider [phone], Mary WRIGHTN Unavailable [phone] Lorraine Morgan RN Unavailable [phone] Saab, Elaine BOARD CATCHER Unavailable Encounter Details Date Type Department Care Team (Late st Contact Info) Description 07/29/2024 Abstract [facility] [address] [facility] 110 [place] [address] Nikko Bird MD 112 [facility] 110 [place] [address] Social History Tobacco Use Types Packs/Day Years [...] Recorded Patient Health Questionnaire-2 Score 0 04/26/2024 [facility] - [...] BRIGID PODIATRY [address] [place] [address] Emmanuel Gonzalez DPM [address] [facility] 5 [place] [address] documented as of this encounter Visit Diagnoses Not on filedocumented in this encounter Additional Health Concerns Assessment Noted Time PHQ-9 Depression Total Score: 0 04/26/20 9:00 AM EDT documented as of this encounter Care Teams Air Crew Officer Relationship Specialty Start Date End Date Nikko Bird MD [address] [place] [address] PCP - [employer] 08/28/17 Nikko Bird MD [address] [place] [address] PCP - General Family Medicine 03/09/23MondayMary LPN [address] [place] [address] Licensed Practical Nurse Family Medicine 06/21/24 Lorraine Morgan, KULDEEP [address] [place] [address] Licensed Practical Nurse Family Medicine 10/04/2411/15 Elaine Saab LPN 112 [facility] 110 [place] [address] 11/15/24 documented as of this encounter
--- OUTSIDE RECORDS SUMMARY | 2025-04-15 13:36 | XMS_ITS | Encounter Summary ---
Author Organization [facility] Address [address] [place] [address] Care Team Providers Care Senior Project Leader/Team Lead Name Role Phone Nikko Bird MD Unavailable Nikko Bird MD Primary Care Provider [phone], Mary AUTOMOBILE UPHOLSTERY TRIM INSTALLER Unavailable [phone] Lorraine Morgan RN Unavailable Saab, Elaine AUTOMOBILE UPHOLSTERY TRIM INSTALLER Unavailable Encounter Details Date Type Department Care Team (Late Contact Info) Description 11/07/2023 Abstract [facility] [place] [facility] [address] [place] [address] Nikko Bird MD [address] [place], [place] [address] Social History Tobacco Use Types Packs/Day Years [...] CI PODIATRY [address] [place] [address] Emmanuel Gonzalez, TIFFANYM 3006 [facility] 5 [place] [address] documented as of this encounter Visit Diagnoses Not on filedocumented in this encounter Care Teams Senior Project Leader/Team Lead Relationship Specialty Start Date End Date Nikko Bird MD [address] [facility] 110 [place] [address] PCP - [employer] 08/28/17 Nikko Bird MD [address] [facility] 110 [place] [address] PCP - General Family Medicine 03/09/23MondayMary LPN [address] [facility] 110 [place] [address] Licensed Practical Nurse Family Medicine 06/21/24 Lorraine Morgan, KULDEEP [address] [place] [address] Licensed Practical Nurse Family Medicine 10/04/2411/15 Elaine Saab LPN [address] [facility] 110 [place] [address] 11/15/24 documented as of this encounter
--- OUTSIDE RECORDS SUMMARY | 2025-04-15 13:36 | XMS_ITS | Clinical Summary ---
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/28/2024 Secondary hypercoagulable state ([facility]) 09/16/ 2024 Pulmonary hypertension, unspecified 04/26/2024 Assessment & Plan (11/04/2024 11:25 AM EDT): Has water pills From COPD Other thrombophilia ([facility]) 03/21/2024 Assessment & Plan (03/21/2024 3:10 PM [...] bronchitis 04/09/2023 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 Atherosclerosis of ekuk ar teries of extremities with rest pain, [...] pop angioplasty with stent placement 08/09 at [facility] in [place], [place]. Pt was placed on Xarelto and [...] pop angioplasty with stent placement 08/09 at [facility] in [place], [place]. Pt was placed on Xarelto and [...] (06/05/2023): Added automatically from request for surgery [id number] Last Assessment & Plan: Heparin drip initiated, [...] management Added automatically from request for surgery [id number] Last Assessment & Plan: Heparin drip initiated, [...] the importance of taking them as prescribed. Zebtab handouts Assessment & Plan (06/06/2023 11:20 AM [...] the importance of taking them as prescribed. Zebtab handouts Assessment & Plan (04/11/2023 11:30 AM [...] the importance of taking them as prescribed. Zebtab handouts Chronic ischemic heart disease 07/04/2008 Impotence [...] (06/05/2023): Last Assessment & Plan: -Presented to [facility] 09/04/2018 as a transfer from [place] for second opinion regarding left lower extremity [...] in pain -Reports pain is uncontrolled with FLAME BRAZING MACHINE OPERATOR Dilaudid pump, and pain does not decrease [...] questions Last Assessment & Plan: -Presented to [facility] 09/04/2018 as a transfer from [place] for second opinion regarding left lower extremity [...] in pain -Reports pain is uncontrolled with FLAME BRAZING MACHINE OPERATOR Dilaudid pump, and pain does not decrease [...] Description 04/15/2025 8:00 AM EDT Ancillary Procedure [facility] [address] [place] [address] Osteomyelitis of right foot, unspecified type (HCC) 04/15/2025 Patient Outreach [facility] [address] [place] [address] Elaine Saab LPN 04/15/2025 Results Follow-Up [facility] [place] [facility] [address] [place] [id number] Nikko Bird MD MR foot right wo IV contrast 04/15/2025 Travel 04/14/2025 1:30 PM EDT Office Visit [facility] [place] [facility] [address] [place] [address] Nikko Bird MD PVD (peripheral vascular disease) with claudication (Primary Dx); Ischemic toe ulcer, right, with 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); Osteomyelitis of right foot, unspecified type (HCC) 04/14/2025 Travel 04/14/2025 Patient Outreach [facility] [address] [place] [address] Elaine Saab LPN 04/10/2025 Abstract [facility] [address] [facility] [address] [place] [address] Emmanuel Gonzalez DPM 04/10/2025 Telephone [facility] [place] [facility] [address] [facility] [address] [place] [address] Zoë King PA posible med interaction 04/10/2025 Abstract [facility] [place] [facility] [address] [facility] [address] [place] [address] Nikko Bird MD 04/09/2025 Abstract [facility] [place] [facility] [address] [facility] [address] [place] [address] Nikko Bird MD 04/09/2025 Telephone [facility] [place] [facility] [address] [facility] [address] [place] [address] Zoë King PA 04/09/2025 Refill [facility] [place] [facility] [address] [facility] [address] [place] [address] Zoë King PA Paroxysmal atrial fibrillation (HCC) 04/08/2025 11:30 AM EDT Office Visit [facility] [place] [facility] [address] [facility] [address] [place] [address] Zoë King PA PVD (peripheral vascular disease) with claudication (Primary Dx); Acquired absence of left foot (HCC); Ischemic toe ulcer, right, with 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) 04/08/2025 External Result Encounter [facility] External Department Unsolicited Zoë King PA 04/08/2025 Abstract [facility] [place] [facility] [address] [facility] [address] [place] [address] Nikko Bird MD 04/08/2025 Bamboo flowsheet [facility] [place] [facility] [address] [place] [address] Zoë King PA 04/08/2025 Travel 04/07/2025 [facility] [address] [place] [address] Elaine Saab LPN 04/03/2025 Refill [facility] [address] [facility] [address] [place] [address] Nikko Bird MD PVD (peripheral vascular disease) with claudication 03/31/2025 1:45 PM EDT Office Visit [facility] [place] [facility] 112 [facility] [address] [place] [address] Nikko Bird MD PVD (peripheral vascular disease) with claudication; History of prostate cancer; Urinary hesitancy 03/31/2025 Travel 03/31/2025 Patient Outreach [facility] [address] [place] [address] Elaine Saab LPN 03/24/2025 Telephone [facility] [address] [place] [address] Elaine Saab LPN 03/24/2025 [facility] [address] [place] [address] Elaine Saab LPN 03/24/2025 [facility] [address] [facility] [address] [place] [address] Nikko Bird MD 03/20/2025 [facility] [address] [facility] [address] [place] [address] Nikko Bird MD 03/17/2025 Abstract [facility] [place] [facility] [address] [facility] [address] [place] [address] Nikko Bird MD 03/12/2025 Abstract [facility] [place] [facility] [address] [place] [address] Nikko Bird MD 03/11/2025 Abstract [facility] [place] [facility] [address] [place] [address] Nikko Bird MD 03/06/2025 Refill [facility] [place] [facility] [address] [facility] [address] [place] [address] Mary Wilson, MANAGER EQUITY History of prostate cancer; Urinary hesitancy 02/13/2025 Refill [facility] [place] [facility] [address] [facility] [address] [place] [address] Nikko Bird MD Primary insomnia; Other chronic pain; Lumbosacral spondylosis without myelopathy 01/16/2025 Telephone [facility] [place] [facility] [address] [facility] [address] [place] [address] Nikko Bird MD 01/15/2025 Refill [facility] [place] [facility] [address] [facility] [address] [place] [address] Nikko Bird MD Heartburn from Last 3 [...] Recorded Patient Health Questionnaire-2 Score 0 04/14/2025 [facility] [place] of Occupat ional Health - Occupational Stress [...] EDT Office Visit [facility] 112 [facility] [address] [place] [address] Emmanuel Gonzalez DPJenni [address] [facility] 5 [place] [address] Health Maintenance Due Date Last [...] IM MRI PROCEDURES Final Result * (ABNORMAL) [facility] (04/08/2025 12:00 AM EDT) [facility].731(A) 23.000 - 31.199 ppm 04/09/2025 1:18 PM EDT [facility] MECA Detected(A) 23.000 - 31.199 ppm 04/09/2025 1:18 PM EDT [facility] TET B, TET M 23.751(A) 23.000 - 27.778 ppm 04/09/2025 1:18 PM EDT [facility] TET B, TET M Detected(A) 23.000 - 27.778 ppm 04/09/2025 1:18 PM EDT [facility] ACINETOBACTER BAUMANNII (ACUTE WOUND) 0 19.961 - 24.689 ppm 04/09/2025 1:19 PM EDT [facility] ACINETOBACTER BAUMANNII (ACUTE WOUND) Not Detected 19.961 - 24.689 ppm 04/09/2025 1:19 PM EDT [facility] BACTEROIDES FRAGILIS, VULGATUS (ACUTE WOUND) 23.270(A) 19.961 - 24.689 ppm 04/09/2025 1:18 PM EDT [facility] BACTEROIDES FRAGILIS, VULGATUS (ACUTE WOUND) Detected(A) 19.961 - 24.689 ppm 04/09/2025 1:18 PM EDT [facility] CITROBACTER FREUNDII (ACUTE WOUND) 0 19.961 - 24.689 ppm 04/09/2025 1:19 PM EDT [facility] CITROBACTER FREUNDII (ACUTE WOUND) Not Detected 19.961 - 24.689 ppm 04/09/2025 1:19 PM EDT [facility] CLOSTRIDIUM PERFRINGENS, NOVYI, SEPTICUM (ACUTE WOUND) 0 19.961 - 24.689 ppm 04/09/2025 1:19 PM EDT [facility] CLOSTRIDIUM PERFRINGENS, NOVYI, SEPTICUM (ACUTE WOUND) Not Detected 19.961 - 24.689 ppm 04/09/2025 1:19 PM EDT [facility] ENTEROBACTER CLOACAE COMPLEX, KLEBSIELLA (ENTEROBACTER) AEROGENES ((A) 0 19.961 - 24.689 ppm 04/09/2025 1:19 PM EDT [facility] ENTEROBACTER CLOACAE COMPLEX, KLEBSIELLA (ENTEROBACTER) AEROGENES ((A) Not Detected 19.961 - 24.689 ppm 04/09/2025 1:19 PM EDT [facility] ENTEROCOCCUS FAECALIS, FAECIUM 0 19.961 - 24.689 ppm 04/09/2025 1:19 PM EDT [facility] ENTEROCOCCUS FAECALIS, FAECIUM Not Detected 19.961 - 24.689 ppm 04/09/2025 1:19 PM EDT [facility] ESCHERICHIA COLI (ACUTE WOUND) 0 19.961 - 24.689 ppm 04/09/2025 1:19 PM EDT [facility] ESCHERICHIA COLI (ACUTE WOUND) Not Detected 19.961 - 24.689 ppm 04/09/2025 1:19 PM EDT [facility] KLEBSIELLA PNEUMONIAE, OXYTOCA (ACUTE WOUND) 0 19.961 - 24.689 ppm 04/09/2025 1:19 PM EDT [facility] KLEBSIELLA PNEUMONIAE, OXYTOCA (ACUTE WOUND) Not Detected 19.961 - 24.689 ppm 04/09/2025 1:19 PM EDT [facility] PROTEUS MIRABILIS, VULGARIS (ACUTE WOUND) 22.966(A) 19.961 - 24.689 ppm 04/09/2025 1:18 PM EDT [facility] PROTEUS MIRABILIS, VULGARIS (ACUTE WOUND) Detected(A) 19.961 - 24.689 ppm 04/09/2025 1:18 PM EDT [facility] PSEUDOMONAS AERUGINOSA (ACUTE WOUND) 0 19.961 - 24.689 ppm 04/09/2025 1:19 PM EDT [facility] PSEUDOMONAS AERUGINOSA (ACUTE WOUND) Not Detected 19.961 - 24.689 ppm 04/09/2025 1:19 PM EDT [facility] SERRATIA MARCESCENS (ACUTE WOUND) 0 19.961 - 24.689 ppm 04/09/2025 1:19 PM EDT [facility] SERRATIA MARCESCENS (ACUTE WOUND) Not Detected 19.961 - 24.689 ppm 04/09/2025 1:19 PM EDT [facility] STAPHYLOCOCCUS AUREUS (ACUTE WOUND) 24.790(A) 19.961 - 24.689 ppm 04/09/2025 1:18 PM EDT [facility] STAPHYLOCOCCUS AUREUS (ACUTE WOUND) Detected(A) 19.961 - 24.689 ppm 04/09/2025 1:18 PM EDT [facility] STREPTOCOCCUS AGALACTIAE (GROUP B STREP) (ACUTE WOUND) 0 19.961 - 24.689 ppm 04/09/2025 1:19 PM EDT [facility] STREPTOCOCCUS AGALACTIAE (GROUP B STREP) (ACUTE WOUND) Not Detected 19.961 - 24.689 ppm 04/09/2025 1:19 PM EDT [facility] STREPTOCOCCUS PYOGENES (GROUP A STREP) (ACUTE WOUND) 0 19.961 - 24.689 ppm 04/09/2025 1:19 PM EDT [facility] STREPTOCOCCUS PYOGENES (GROUP A STREP) (ACUTE WOUND) Not Detected 19.961 - 24.689 ppm 04/09/2025 1:19 PM EDT [facility] VIBRIO CHOLERAE, PARAHAEMOLYTICUS, VULNIFICUS (ACUTE WOUND) 0 23.000 - 31.296 ppm 04/09/2025 1:19 PM EDT [facility] VIBRIO CHOLERAE, PARAHAEMOLYTICUS, VULNIFICUS (ACUTE WOUND) Not Detected 23.000 - 31.296 ppm 04/09/2025 1:19 PM EDT [facility] Wound 04/08/2025 04/09/2025 4:1 0 AM EDT us Zoë [facility] LAB BLOOD ORDERABLES Edited Re sult - Final [facility] Virgen6 Hortensia Carrero [facility] [place] [address] * HERPES SIMPLEX VIRUS 1 (04/08/2025 12:00 AM EDT) HERPES SIMPLEX VIRUS 1 0 23.000 - 32.355 ppm 04/09/2025 11:32 AM EDT [facility] HERPES SIMPLEX VIRUS 1 Not Detected 23.000 - 32.355 ppm 04/09/2025 11:32 AM EDT [facility] HERPES SIMPLEX VIRUS 2 0 23.000 - 31.433 ppm 04/09/2025 11:32 AM EDT [facility] HERPES SIMPLEX VIRUS 2 Not Detected 23.000 - 31.433 ppm 04/09/2025 11:32 AM EDT [facility] HUMAN MONKEYPOX VIRUS 0 23.000 - 32.544 ppm 04/09/2025 11:37 AM EDT [facility] HUMAN MONKEYPOX VIRUS Not Detected 23.000 - 32.544 ppm 04/09/2025 11:37 AM EDT [facility] VARICELLA ZOSTER VIRUS (HUMAN HERPESVIRUS 3) 0 23.000 - 31.749 ppm 04/09/2025 11:32 AM EDT [facility] VARICELLA ZOSTER VIRUS (HUMAN HERPESVIRUS 3) Not Detected 23.000 - 31.749 ppm 04/09/2025 11:32 AM EDT [facility] Wound 04/08/2025 04/09/2025 4:1 0 AM EDT us Zoë [facility] BLOOD ORDERABLES Final Res ult [facility] [address] [place] [address] * Urine culture (clean catch) (01/17/2025 11:06 AM EDT) Pathologist [facility] MICRO NUMBER [id number] [facility] SPECIMEN QUALITY Adequate [facility] SOURCE: (QUEST) URINE [facility] STATUS FINAL [facility] RESULT SEE NOTE [facility] Comment: No Growth Urine Urine specimen obtained by clean catch procedure / Unknown 01/17/2025 11:06 AM EDT 01/17/2025 11:06 AM EDT Narrative Resulting Agency Comment Performing Organization Information Site ID: [id number] Name: [facility] Address: [address] [place] [address] Director: Gene Liang MD us Mary Wilson MANAGER [facility]QU[facility] LAB MICROBIOLOGY - GENERAL ORDER CAIT Final Result [facility] from Last 3 Months Insurance [employer] MEDICARE ADVANTAGE Care Teams A Class Lineman Relationship Specialty Start Date End Date Nikko Bird MD [address] [facility] [address] [place] [address] PCP - [employer] 08/28/17 Nikko Bird MD [address] [facility] [address] [place] [address] PCP - General Family Medicine 03/09/23 Elaine Saab LPN [address] [facility] [address] [place] [address] 11/15/24
--- OUTSIDE RECORDS SUMMARY | 2025-04-15 13:36 | XMS_ITS ---
Author Organization [facility] Address [address] [place] [address] Care Team Providers Care Research Methods Instructor Name Role Phone Nikko Bird MD Unavailable Nikko Bird MD Primary Care Provider [phone] Elaine Saab LPN Unavailable Chronic Care Management (CCM) Status:Enrolled (Active) Start date:06/21/2024 Enrollment date:06/21/2024 Enrollment reason:Identified using hospital discharge data Overview 06/21/24, 9:45 AM - Marymonday, FIGURE CLERK- Patient gives verbal consent to be enrolled in CCM Program and understands there could be a bill for this service. Case Team Name Relationship Phone Elaine Saab LPN(Responsible Staff) [phone] Continued Care and Services Coordination
--- OUTSIDE RECORDS SUMMARY | 2025-04-15 13:36 | XMS_ITS | Encounter Summary ---
Author Organization [facility] Address [address] [place] [address] Care Team Providers Care Harness Mender Name Role Phone Nikko Bird MD Unavailable Nikko Bird MD Primary Care Provider [phone], Mary POWER LINEMAN TECHNICIAN Unavailable [phone] Lorraine Morgan RN Unavailable [phone] Saab, Elaine POWER LINEMAN TECHNICIAN Unavailable Encounter Details Date Type Department Care Team (Late Contact Info) Description 03/25/2024 Abstract [facility] [place] [facility] [address] [place] [address] Nikko Bird MD [address] [place], [place] [id number] Social History Tobacco Use Types Packs/Day Years [...] [facility] [address] [place] [address] Emmanuel Gonzalez DPM [address] [facility] 5 [place] [address] documented as of this encounter Visit Diagnoses Not on filedocumented in this encounter Care Teams Harness Mender Relationship Specialty Start Date End Date Nikko Bird MD [address] [facility] [address] [place] [address] PCP - [employer] 08/28/17 Nikko Bird MD [address] [facility] [address] [place] [address] PCP - General Family Medicine 03/09/23MondayMary LPN [address] [facility] [address] [place] [address] Licensed Practical Nurse Family Medicine 06/21/24 Lorraine Morgan, KULDEEP [address] [place] [address] Licensed Practical Nurse Family Medicine 10/04/2411/15 Elaine Saab LPN [address] [facility] [address] [place] [address] 11/15/24 documented as of this encounter
--- OUTSIDE RECORDS SUMMARY | 2025-04-15 13:37 | XMS_ITS | Clinical Summary ---
Author Organization [facility] Address [address] [facility], [address] [place] [address] Care Team Providers Care Senior Functional Analyst Name Role Phone Nikko Bird MD Primary Care Provider [phone] Allergies No known active allergies Medications aspirin [...] coronary artery 05/13/2024 Overview (05/13/2024): Dr. Cee Haven, saw for clearance Triple bypass, 2017 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 No 05/13/2024 Food Insecurity Answer [...] - 199 mg/dL 05/14/2024 6:13 AM EDT [facility] Comment: Cholesterol Guidelines: <200 Desirable 200-240 Borderline >240 Undesirable HDL 41 >40 mg/dL 05/14/2024 6:13 AM EDT [facility] Comment: HDL Guidelines: <40 Undesirable 40-59 Borderline >59 Desirable LDL Cholesterol 73 0 - 100 mg/dL 05/14/2024 6:13 AM EDT [facility] Comment: LDL Guidelines: <100 Desirable 100-129 Near to/above Desirable 130-159 Borderline >159 Undesirable Direct (measured) LDL and calculated LDL are not interchangeable tests. Chol/HDL Ratio 3.0 05/14/2024 6:13 AM EDT [facility] Triglycerides 85 <150 mg/dL 05/14/2024 6:13 AM EDT [facility] Comment: Triglyceride Guidelines: <150 Desirable 150-199 Borderline 200-499 High >499 Very high Based on AHA Guidelines for fasting triglyceride, May 2012. 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 CHEMISTRY ORDERABLES Fi nal Result [facility] [address] [place] [address], [facility] [phone] [facility] [place] [address], [facility] [phone] from Last 3 Months or Most Recently Relevant to Health Maintenance Insurance MEDICARE MEDICARE MEDICARE Advance Directives * Full Code (Latest Code Status on File) Date Activated Date Inactivated Comments 05/13/2024 1:14 AM 05/14/2024 5:07 PM Healthcare Agents on File Name Relationship Healthcare Agent [facility] p Communication Mckenzie Gray Child Primary Decision Maker Care Teams Senior Functional Analyst Relationship Specialty Start Date End Date Nikko Bird MD PCP - General 08/15/13
--- NOTE | 2025-04-15 13:53 | XR_ITS ---
[place] [id number] Patient Name: REJI POWELL MRN: [id number] date: 1940 Sex: M Assigned Patient Location: [facility] Current Patient Location: Accession/Order Number: [id number] Exam Date: 04/16/2025 12:46 Report Date: 04/16/2025 12:49 At the request of: SAVANNA COLUNGA DPeJnni Procedure: XR foot RT min 3V 3 views right foot plain film with weightbearing COMPARISON:None HISTORY: Right great toe infection. ACUTE FINDINGS: Erosive changes of the medial portion of the tuft of the first toe. DEGENERATIVE CHANGE: Unremarkable SOFT TISSUE FINDINGS: Gauze on the first toe. Soft tissue swelling. No subcutaneous air. No radiodense foreign body. Ulceration. 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 Impression dictated by: Cristian Rodriguez M.D. 04/16/2025 12:49 PM Dictation Location: [place] [address] Electronically authenticated by: [id number] Y Date: 04/16/2025 12:49
== END 2025-04-15 13:33 | disposition home or self-care (01) ==
LOC: RAD 13:32
PROVIDERS: PCP Family Medicine; Visit Provider Podiatrist Foot & Ankle Surgery
DX: M86.171 Other acute osteomyelitis, right ankle and foot (principal); L97.519 Non-pressure chronic ulcer of other part of right foot with unspecified severity; M86.9 Osteomyelitis, unspecified
CPT/HCPCS: 73630

== ENCOUNTER 2025-04-16 10:48 | Outpatient (OUT) | payer MEDICARE, SELFPAY ==
--- OUTSIDE RECORDS SUMMARY | 2025-04-16 11:12 | XMS_ITS | CCD ---
Author Organization [facility] Care Team Providers Care Service Advisor Name Role Phone ELTAHAWY, EHAB A Unavailable Unavailable ELTAHAWY, EHAB A Unavailable Unavailable DAVON LOVELACEEN Unavailable Unavailable YANIRA PRESTON AM Unavailable Unavailable RIEGO, FILMORE A. Unavailable Unavailable MONIQUEEGO, FILMORE A. Unavailable Unavailable Flash Lovelace Primary Care Provider FLYNN MANN Attending Unavailabl e FLYNN MANN Referring Unavailabl e FLASH LOVELACE Primary Care Unavailable FLYNN MANN Admitting Unavailabl e [facility] Consulting Monisha MURO, SANTOSH YOUSIF Consulting Unavailable ISAIAS VOGT Attending Unavailable ISAIAS VOGT Referring Unavailable ISAIAS VOGT Attending Unavailable ISAIAS VOGT Referring Unavailable SHAYY WAY Attending Unavailable DUKE SANTOS Attending Unavailable DUKE SANTOS Referring Unavailable ANALIA FOX Attending Unavailable Flash Lovelace Primary Care Provider [phone] Flash Lovelace MD Primary Care Provider Flash Lovelace MD Primary Care Provider ILEANA KANG Attending Unavailable FLASH LOVELACE Primary Care Unavailable Flash Lovelace MD Primary Care Provider Cristian Beaver Unavailable MD Flash Lovelace Primary Care Provider MD Cristian Beaver Attending Provider [phone] WAGNER MOON Referring Unavaila WAGNER Vogt Attending Unavaila FLASH Newton Primary Care Unavailable Flash Lovelace MD Primary Care Provider Falsh Lovelace MD Primary Care Provider FLASH LOVELACE Primary Care Unavailable Dalila Arreguin Attending Unavailable FLASH LOVELACE Primary Care Physician [phone] Haven Malcolm Unavailable [place], DR VIDALES Primary Care Unavailable RUSSEL VALLEJO Admitting Unavailable RUSSEL VALLEJO Consulting Unavailable RUSSEL VALLEJO Attending Unavailable [place], DR VIDALES Primary Care Unavailable BHASKAR WILSON Admitting Unavailable BHASKAR WILSON Consulting Unavailable BHASKAR WILSON Attending Unavailable ALGHOELIZABETH BRAXTON Attending Unavailable [place], DR VIDALES Primary Care Unavailable ZIEBER, DR MIKEY Kwon Consulting Unavailable ALGHOTHANI, MOHAMAD Admitting Unavailable ALGHOTHANI, MOHAMAD Consulting Unavailable [place], DR VIDALES Primary Care Unavailable BRENNA MOSQUERA Admitting Unavailable BRENNA MOSQUERA Consulting Unavailable BRENNA MOSQUERA Attending Unavailable System, Provider Not In Unavailable UnavailMD Flash Gutiérrez Primary Care Provider [phone] BERTA Malcolm Attending Provider MD Cristian Beaver Attending Provider [phone] Flash Lovelace MD Primary Care Provider [phone] SCAR ORTEGA Referring Unavailable FLASH LOVELACE [facility] Care Unavailable SCAR ORTEGA Attending Unavailable FLASH LOVELACE [facility] Unavailable SELF, SELF Referring Unavailable SCAR ORTEGA Attending Unavailable MD Flash Lovelace Primary Care Provider [phone] MD Cristian Beaver Attending Provider MD Eliezer Carvalho V Attending Provider MD Duke Dunbar Referring Provider BRENNA MOSQUERA Attending Unavailable FLASH LOVELACE Primary Care Unavailable GISEL MANN Admitting Unavailable ARTURO HARPER Consulting Unavailable JUAN EARL Attending Unavailable Flash Lovelace MD Unavailable Flash Lovelace MD Primary Care Provider [phone] Monday S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, Mary Unavailable Flash Lovelace MD Primary Care Provider Lorraine Morgan RN Unavailable Saab S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, Elaine Unavailable Unavailable ELIEZER CARVALHO Admitting Unavailable ELIEZER CARVALHO Attending Unavailable RUSSEL VALLEJO Attending Unavailable ELIEZER CARVALHO Attending Unavailable ELIEZER CARVALHO Attending Unavailable RUSSEL VALLEJO Attending Unavailable Saab S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, Elaine Unavailable Flash Lovelace MD Primary Care Provider [phone] Cristian Beaver MD Attending Provider [phone] Cristian Beaver Admitting Unavailable Cristian Beaver Attending Unavailable [place], Rugen M Primary Care Unavailable Cristian Beaver Admitting Unavailable Cristian Beaver Attending Unavailable [place], Rugen M Primary Care Unavailable Cristian Beaver Attending Unavailable [place], Rugen M Primary Care Unavailable Cristian Beaver Admitting Unavailable MOHSEN SARABIA Attending Unavailable [place], RUGEN M Primary Care Unavailable WALKERMOHSEN Admitting Unavailable [place], RUGEN M Primary Care Unavailable KEN JOHNSON Attending Unavailable MOHSEN SARABIA Referring Unavailable WALKERMOHSEN Attending Unavailable [place], RUGEN M Primary Care Unavailable WALKERMOHSEN Referring Unavailable WALKERMOHSEN Attending Unavailable [place], RUGEN M Primary Care Unavailable WALKERMOHSEN Referring Unavailable WALKERMOHSEN Attending Unavailable [place], RUGEN M Primary Care Unavailable WALKERMOHSEN Consulting Unavailable URI VOSS Attending Unavailable [place], RUGEN M Primary Care Unavailable MUNA OTTO Admitting Unavail able [place], FLASH M Attending Unavailable BHASKAR WILSON Attending Unavailable [place], RUGSELAM M Attending Unavailable ZOË KING Attending Unavailable [place], FLASH M Attending Unavailable [place], RUGEN M Referring Unavailable HEMZOË BERNARD Attending Unavailable HEMZOË BERNARD Attending Unavailable [place], FLASH Arteaga Attending Unavailable Allergies Allergy Classification Reported Allergen(s) Allergy Type Date of Onset Reaction(s) Facility Doxycycline (2 sources) Doxycycline Drug Allergy 9 [facility] (1 source) 49962,00; Translations: [44142,00] Propensity to adverse reactions (disorder) 9 [facility] (11 sources) oxyCODONE; Translations: [oxycodone] Drug Allergy 7 Anaphylaxis, Anaphylaxis (disorder) [facility] (20 sources) Doxycycline; Translations: [DOXYCYCLINE] Drug Allergy 9 Unknown [facility] (18 sources) gabapentin; Translations: [GABAPENTIN] Drug Allergy 5 GI Intolerance [facility] Medications Current Medications Medication Drug Class(es) Dates Sig (Normalized) Sig (Original) acetaminophen 325 mg / oxyCODONE hydrochloride 5 mg oral tablet (20 sources) Opioid Agonist Start: 04-03-2025 End: 05-03-2025 take 1 tablet by mouth every six hours for pain oxyCODONE-acetamino phen (Percocet) 5-325 MG tablet Indications: PVD (peripheral vascular disease) with claudication Take 1 tablet by mouth every 6 (six) hours if needed for severe pain or moderate pain 120 tablet 04/03/2025 05/03/2025 Active Start: 03-31-2025 take 1 tablet by lucy th every six hours for pain oxyCODONE-acetaminophen (Percocet) 5-325 MG tablet Indications: PVD (peripheral vascular disease) with claudication Take 1 tablet by mouth every 6 (six) hours if needed for severe pain or moderate pain 15 tablet 03/31/2025 Active Start: 03-31-2025 take 1 tablet by lucy th every six hours for pain oxyCODONE-acetaminophen (Percocet) 5-325 MG tablet Indications: PVD (peripheral vascular disease) with claudication Take 1 tablet by mouth every 6 (six) hours if needed for severe pain or moderate pain 15 tablet 03/31/2025 Active Start: 11-04-2022 End: 11-08-2022 take 1 tablet by mouth every four hours as needed oxyCODONE-acetaminophen (PERCOCET) 5-325 mg per tablet 1 tablet Start: 01-18-2022 End: 04-02-2025 oxyCODONE-acetaminophen (PER COCET) 5-325 mg per tablet Indications: Acute pain of right lower extremity Take 1 (one) tablet by mouth every 6 (six) hours as needed for pain (Days supply per fill: 3) . 12 tablet 03/21/2025 04/02/2025 Active Start: 10-05-2021 take 1 tablet by lucy th every four hours for pain Percocet 2.5/325 oral tablet 1 tab(s), Oral, q4hr for pain, Refill(s) 0 Start Date: 10/05/21 Status: Ordered Start: 10-12-2018 End: 10-19-2018 take 1 tablet by mouth every four hours as needed, then take 7 tablets by mouth as needed oxyCODONE-acetaminophen (PERCOCET) 5-325 mg per tablet Indications: Acute post-operative pain Take 1 (one) tablet by mouth every 4 (four) hours as needed (december) (Days supply per fill: 7) . 20 tablet 0 10/12/2018 10/19/2018 Active Start: 10-05-2018 End: 10-12-2018 take 1 tablet by mouth every twenty-four hours as needed 1 tablet, Oral, Once as needed, Pain, Starting 10/08/18 at 0835, For 1 dose, PACU (only) While in PACU when tolerating orals. Use oral route first, if tolerated. Start: 05-12-2017 take 1 tablet by lucy th every four to six hours as needed for pain Oxycodone-Acetaminophen (Percocet) 5-325 mg Tablet Active 1 TAB PO EVERY 4-6 HOURS as needed for Pain May 12, 2017 12:00am Complies with drug therapy oxyCODONE-Acetam inophen 5-325 MG Oral for 10 Days Active albuterol 0.833 mg/ml / ipratropium bromide 0.167 mg/ml inhalation solution (20 sources) Anticholinergic, beta2-Adrenergic Agonist Start: 02-03-2023 ipratropium-albuterol (Duo-Neb) 0.5-2.5 mg/3 mL nebulizer solution Take 3 mL by nebulization in the morning and 3 mL in the evening and 3 mL before bedtime. 02/03/2023 Active Start: 11-03-2022 End: 11-08-2022 take 3 mL by inhalation every six hours 3 mL, Inhalation, Every 6 hours scheduled (RT), First dose on Prerna 11/03/22 at 2230 Start: 11-03-2022 End: 11-08-2022 take 3 mL by inhalation every four hours as needed 3 mL, Inhalation, Every 4 hours PRN (RT), shortness of breath, Starting on Prerna 11/03/22 at 2228 Start: 11-03-2022 End: 03-14-2025 ipratropium-albuteroL (DUO-N EB) 0.5-2.5 mg/3 ml nebulizer Take 3 mL by nebulization 3 (three) times a day . 11/03/2022 03/14/2025 Discontinued (Therapy completed) Start: 10-30-2022 ipratropium-al buterol (DUONEB) nebulizer solution 1 ampule amLODIPine 5 mg oral tablet (12 sources) Dihydropyridine Calcium Channel María Start: 04-24-2024 End: 04-24-2025 take 1 tablet by mouth in the morning amLODIPine (Norvasc) 5 MG tablet Take 5 mg by mouth in the morning. 04/24/2024 05/21/2024 Discontinued (Other) Start: 10-12-2023 take 1 tablet by lucy once daily Amlodipine 10 mg tablet Active 10 MG PO Daily October 12, 2023 1:00am Complies with drug therapy End: 08-09-2023 amLODIPine (NORVASC) 5 MG ta blet amoxicillin 875 mg / clavulanate 125 mg oral tablet (11 sources) Penicillin-class Antibacterial Start: 04-10-2025 End: 04-17-2025 take 1 tablet by mouth in the morning amoxicillin-clavulanate (Augmentin) 875-125 MG tablet Indications: Ischemic toe ulcer, right, with 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) Take 1 tablet (875 mg) by mouth in the morning and 1 tablet (875 mg) in the evening. Take with meals. Do all this for 7 days. 14 tablet 04/10/2025 04/17/2025 Active Start: 10-22-2018 End: 03-13-2019 take 1 tablet by mouth every twelve hours amoxicillin-clavulanate (AUGMENTIN) 875-125 mg per tablet Take 1 tablet by mouth every 12 (twelve) hours . 0 10/22/2018 03/13/2019 Discontinued (Therapy completed) atorvastatin 80 mg oral tablet (20 sources) HMG-CoA Reductase Inhibitor Start: 03-14-2025 End: 03-21-2025 take 80 mg by mouth once daily 80 mg, Oral, Nightly, First dose (after last modification) on Mon03/14/25 at 2130 Start: 07-09-2024 End: 04-20-2025 atorvastatin (Lipitor) 80 MG tablet 07/09/2024 Active Start: 11-08-2023 End: 08-12-2024 atorvastatin (Lipitor) 40 MG tablet Indications: Hypercholesteremia (CMS/HCC) TAKE 1 TABLET EVERY DAY 100 tablet 3 11/08/2023 08/12/2024 Discontinued (Other) Start: 11-04-2022 End: 11-08-2022 take 40 mg by mouth once daily 40 mg, Oral, Nightly, First dose on Mon11/04/22 at 2100 Start: 04-15-2022 End: 04-15-2022 take 40 mg by mouth once daily 40 mg, Oral, Daily, First dose on Mon04/15/22 at 0900 Start: 01-19-2022 End: 01-21-2022 take 40 mg by mouth once daily 40 mg, Oral, Daily, First dose on Mon01/19/22 at 0900 Start: 07-03-2019 atorvastatin S tart Date: 07/03/19 Status: Ordered Start: 10-05-2018 End: 10-12-2018 take 40 mg by mouth once daily 40 mg, Oral, Daily, First dose on Mon10/05/18 at 0900 Start: 09-05-2018 End: 09-13-2018 take 40 mg by mouth once daily 40 mg, Oral, Nightly, First dose on Mon09/05/18 at 2100 Start: 05-10-2017 take 2 tablets by [facility] once daily Atorvastatin 20 mg Tablet Active 40 MG PO Daily May 10, 2017 12:00am Complies with drug therapy Start: 05-10-2017 take 40 mg by mouth once daily Atorvastatin Active 40 MG PO Daily May 09, 2017 11:00pm Start: 05-10-2017 take 20 mg by mouth once daily Atorvastatin Active 20 MG PO Daily May 10, 2017 12:00am End: 03-21-2025 atorvastatin (LIPITOR) 80 MG tablet Take 0.5 (one-half) tablet (40 mg total) by mouth 2 (two) times a day 1/2 tab . 03/21/2025 Discontinued (Stop Taking at Discharge) atorvastatin (LI PITOR) 40 MG tablet Take 0.5 (one-half) tablet (20 mg total) by mouth 2 (two) times a day 1/2 tab . Active take 1 tablet by lucy th twice daily, then take 0.5 tablet by mouth twice daily atorvastatin 40 MG Tab tablet Take 1 tablet by mouth 2 times daily. Takes 1/2 tab bid 0 Active azithromycin 250 mg oral tablet (1 source) Macrolide Antimicrobial Start: 06-17-2024 End: 06-22-2024 take 1 tablet by mouth once daily azithromycin (Zithromax) 250 MG tablet Indications: Upper respiratory tract infection, unspecified type Take 1 tablet (250 mg) by mouth Daily for 5 days 6 tablet 06/17/2024 06/22/2024 Active celecoxib 200 mg oral capsule (9 sources) Nonsteroidal Anti-inflammatory Drug Start: 11-24-2021 End: 01-21-2022 take 1 capsule by mouth twice daily celecoxib 200 MG capsule Take 1 capsule by mouth 2 times daily. 60 capsule 0 11/24/2021 Active ciprofloxacin 500 mg oral tablet (2 sources) Quinolone Antimicrobial Start: 01-09-2025 End: 01-14-2025 take 0.5 tablet by mouth in the morning ciprofloxacin (Cipro) 500 MG tablet Indications: Dysuria Take 0.5 tablets (250 mg) by mouth in the morning and 0.5 tablets (250 mg) before bedtime. Do all this for 5 days. 5 tablet 01/09/2025 01/14/2025 Active docusate sodium 100 mg oral capsule (20 sources) Start: 07-15-2021 End: 11-08-2022 take 1 capsule by mouth twice daily docusate 100 MG capsule Take 1 capsule by mouth 2 times daily. 60 capsule 0 07/15/2021 Active Start: 09-04-2011 End: 03-13-2019 docusate sodium (COLACE) 100 MG capsule Take 100 mg by mouth . 0 09/04/2011 03/13/2019 Discontinued (Therapy completed) ergocalciferol 1.25 mg oral capsule (13 sources) Provitamin D2 Compound End: 05-21-2024 ergocalciferol (Vitamin D-2) 1.25 MG (55201 UT) capsule Take 50,000 Units by mouth every 7 (seven) days. 05/21/2024 Discontinued (Other) End: 08-09-2023 take 1 capsule by mouth every week ergocalciferol (ERGOCALCIFEROL) 1,250 mcg (50,000 unit) capsule Take 1 (one) capsule (50,000 Units total) by mouth once a week . 0 08/09/2023 Discontinued (Discontinued by another clinician) fluticasone propionate 0.05 mg/actuat metered dose nasal spray (20 sources) Corticosteroid Start: 03-11-2025 take 1 spray(s) nasal route once daily Fluticasone Propionate 50 mcg/actuation spray,suspension Active 2 SPRAY INTRANASAL Daily March 11, 2025 12:00am administer into each nostril Complies with drug therapy Start: 11-04-2024 take 1 spray(s) nasa l route once daily fluticasone (Flonase) 50 MCG/ACT nasal spray Indications: Seasonal allergic rhinitis due to pollen Administer 1 spray into each nostril Daily Shake gently. Before first use, prime pump. After use, clean tip and replace cap. 48 g 3 11/04/2024 Active Start: 05-21-2024 take 1 spray(s) nasa l route once daily fluticasone (Flonase) 50 MCG/ACT nasal spray Indications: Seasonal allergic rhinitis due to pollen Administer 1 spray into each nostril Daily Shake gently. Before first use, prime pump. After use, clean tip and replace cap. 48 g 3 05/21/2024 Active Start: 02-20-2024 End: 05-21-2024 take 1 spray(s) nasal route once daily in the morning fluticasone (Flonase) 50 MCG/ACT nasal spray Indications: Sinusitis, unspecified chronicity, unspecified location USE 1 SPRAY IN EACH NOSTRIL EVERY MORNING 32 g 3 02/20/2024 05/21/2024 Discontinued (Reorder) Start: 10-12-2018 End: 10-12-2019 fluticasone (FLONASE) 50 mcg/actuation nasal spray 2 (two) sprays by Each Nare route daily . 16 g 12 10/12/2018 Active Start: 10-12-2018 End: 10-12-2018 fluticasone (FLONASE) 50 mcg/actuation nasal spray 2 spray Fluticasone Prop ionate 50 MCG/ACT Nasal for 90 Days Active Fluticasone Prop ionate 50 MCG/ACT Nasal for 90 Days Active 24 hr isosorbide mononitrate 30 mg extended release oral tablet (3 sources) Nitrate Vasodilator Start: 05-14-2024 End: 05-21-2024 take 1 tablet by mouth once daily isosorbide mononitrate ER (Imdur) 30 MG 24 hr tablet Take 1 tablet by mouth Daily 05/14/2024 05/21/2024 Discontinued (Other) lanolin 0.157 mg/mg / menthol 0.0044 mg/mg / petrolatum 0.24 mg/mg / zinc oxide 0.206 mg/mg topical ointment (20 sources) Start: 04-26-2024 Menthol-Zinc O xide (Calmoseptine) 0.44-20.6 % ointment Indications: 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HCC) Apply 1 Application topically every 6 (six) hours if needed (Barrier Cream) 100 g 3 04/26/2024 Active Start: 06-27-2023 End: 04-26-2024 Calmoseptine 0.44-20.6 % oin tment 06/27/2023 04/26/2024 Discontinued (Reorder) levoFLOXacin 750 mg oral tablet (5 sources) Quinolone Antimicrobial Start: 11-09-2022 End: 11-14-2022 take 1 tablet by mouth once daily levoFLOXacin (LEVAQUIN) 750 MG tablet Take 1 (one) tablet (750 mg total) by mouth daily for 5 days Start: 11/09/22. 5 tablet 0 11/09/2022 11/14/2022 Active Start: 10-30-2022 End: 11-04-2022 take 1 tablet by mouth once daily levoFLOXacin (LEVAQUIN) 750 MG tablet Take 1 tablet by mouth daily for 5 days 5 tablet 0 10/30/2022 11/04/2022 Active End: 08-09-2023 levoFLOXacin (LEVAQUIN) 500 MG tablet Lisinopril (17 sources) Angiotensin Converting Enzyme Inhibitor Start: 07-03-2019 lisinopril Start Michael e: 07/03/19 Status: Ordered Start: 05-10-2017 End: 05-12-2017 take 1 tablet by mouth once daily Lisinopril 10 mg Tablet Discontinued 10 MG PO Daily May 10, 2017 12:00am May 12, 2017 11:03am End: 08-09-2023 take 1 tablet by mouth once daily lisinopriL (PRINIVIL,ZESTRIL) 5 MG tablet Take 1 (one) tablet (5 mg total) by mouth daily . 0 08/09/2023 Discontinued (Discontinued by another clinician) End: 10-09-2019 take 1 tablet by mouth once daily lisinopril (PRINIVIL,ZESTRIL) 40 MG tablet Take 40 mg by mouth daily . 0 10/09/2019 Discontinued (Therapy completed) losartan potassium 50 mg oral tablet (20 sources) Angiotensin 2 Receptor María Start: 07-29-2024 End: 03-21-2025 take 1 tablet by mouth once daily losartan (Cozaar) 50 MG tablet Indications: Benign essential hypertension Take 1 tablet (50 mg) by mouth Daily 100 tablet 3 07/29/2024 Active Start: 04-25-2022 End: 11-07-2022 take 1 tablet by mouth once daily losartan (Cozaar) 50 MG tablet Indications: Benign essential hypertension Take 1 tablet (50 mg) by mouth Daily 100 tablet 3 07/29/2024 Active Start: 04-15-2022 End: 04-15-2022 take 50 mg by mouth once daily 50 mg, Oral, Daily, Fir st dose on Mon04/15/22 at 0900 Start: 01-19-2022 End: 01-21-2022 take 50 mg by mouth once daily at lunch 50 mg, Oral, Daily with lunch, First dose on Mon01/19/22 at 1200 Start: 09-25-2019 End: 01-19-2022 take 1 mg by mouth once daily losartan 25 mg Tab mg ta b(s), Oral, Daily, Refills(s) 0 Start Date: 08/04/20 Status: Ordered take 0.5 tablet by m outh once daily losartan 50 MG tablet Take 0.5 tablets by mouth daily. 0 Active losartan 50 MG t ablet Take 25 mg by mouth daily. 0 Active menthol 0.0044 mg/mg / zinc oxide 0.206 mg/mg topical ointment (13 sources) Start: 06-27-2023 Calmoseptine 0 .44-20.6 % Oint Apply 1 Application topically daily as needed . 06/27/2023 Active Start: 06-27-2023 Calmoseptine 0 .44-20.6 % Oint 06/27/2023 Active methylPREDNISolone 125 mg injection (10 sources) Corticosteroid Start: 10-30-2022 methylPREDNISo lone sodium (SOLU-MEDROL) injection 125 mg Start: 11-24-2021 methylPREDNIso lone 4 MG Tab Therapy Pack tablet Take 1 tablet by mouth As directed. follow package directions 21 tablet 0 11/24/2021 Active metoprolol tartrate 50 mg oral tablet (20 sources) beta-Adrenergic María Start: 06-20-2024 End: 06-20-2025 take 1 tablet by mouth in the morning metoprolol tartrate (Lopressor) 50 MG tablet Indications: Benign essential hypertension Take 1 tablet (50 mg) by mouth in the morning and 1 tablet (50 mg) before bedtime. 180 tablet 3 06/20/2024 06/20/2025 Active Start: 01-19-2022 End: 01-21-2022 take 50 mg by mouth twice daily 50 mg, Oral, 2 times d aily, First dose on Mon01/19/22 at 0900 Start: 09-05-2018 End: 09-13-2018 take 50 mg by mouth once daily 50 mg, Oral, Daily, Fir st dose on Mon09/05/18 at 1700 DO NOT CRUSH OR CHEW. Start: 05-10-2017 End: 11-08-2022 take 50 mg by mouth twice daily Metoprolol Tartrate Ac tive 50 MG PO Twice daily May 10, 2017 12:00am Start: 05-10-2017 End: 06-20-2025 take 1 tablet by mouth in the morning metoprolol tartrate (Lopressor) 50 MG tablet Indications: Benign essential hypertension Take 1 tablet (50 mg) by mouth in the morning and 1 tablet (50 mg) before bedtime. 180 tablet 3 06/20/2024 06/20/2025 Active take 1 tablet by lucy th twice daily metoprolol succinate 50 MG PO tablet XL Take 1 tablet by mouth 2 times daily. 0 Active End: 09-13-2018 take 1 tablet by mouth every twenty-four hours metoprolol succinate (TOPROL-XL) 50 MG 24 hr tablet Take 50 mg by mouth . 0 09/13/2018 Discontinued montelukast 10 mg oral tablet (20 sources) Leukotriene Receptor Antagonist Start: 03-21-2024 End: 03-31-2025 take 1 tablet by mouth at bedtime montelukast (Singulair) 10 MG tablet Indications: Seasonal allergic rhinitis due to pollen Take 1 tablet (10 mg) by mouth at bedtime 30 tablet 11 03/21/2024 03/31/2025 Discontinued (Other) naloxone (NARCAN) 4 mg/actuation Vance (3 sources) Start: 03-21-2025 naloxone (NARC AN) 4 mg/actuation Vance Administer 1 spray into one nostril for known or suspected opioid overdose. If patient worsens or does not respond, may repeat in 2-3 minutes. . 2 each 03/21/2025 Active Start: 03-21-2025 naloxone (NARC AN) 4 mg/actuation Vance Administer 1 spray into one nostril for known or suspected opioid overdose. If patient worsens or does not respond, may repeat in 2-3 minutes. . 2 each 03/21/2025 nitroglycerin 0.4 mg sublingual tablet (20 sources) Nitrate Vasodilator Start: 12-07-2022 End: 03-31-2025 nitroglycerin (Nitrostat) 0.4 MG SL tablet Indications: PVD (peripheral vascular disease) with claudication Place 1 tablet (0.4 mg) under the tongue every 5 (five) minutes if needed for chest pain 90 tablet 1 03/31/2025 Active Start: 12-07-2022 nitroGLYCERIN (NITROSTAT) 0.[address] 1 tablet as needed by sublingual route. 12/07/2022 Active Start: 01-19-2022 End: 01-21-2022 0.4 mg, Sublingual, Every 5 min PRN, chest pain, Starting on Mon01/19/22 at 0335, For 3 doses Anginal pain, may repeat [id number] x3, then notify physician. DO NOT CRUSH OR CHEW. Start: 09-05-2018 End: 09-13-2018 nitroGLYCERIN (NITROSTAT) SL tablet 0.4 mg End: 01-21-2022 nitroGLYCERIN (NITROSTAT) 0. [address] under the tongue every 4 to 6 hours as needed . 0 01/21/2022 Discontinued (Stop Taking at Discharge) omeprazole 20 mg delayed release oral capsule (20 sources) Proton Pump Inhibitor Start: 04-25-2022 Omeprazole 40 mg Capsule,Delayed Release(Dr/Ec) Active 20 MG PO Daily April 25, 2022 12:00am Complies with drug therapy Start: 04-25-2022 take 20 mg by mouth once daily Omeprazole Active 20 MG PO Daily April 24, 2022 11:00pm Start: 04-25-2022 take 1 capsule by [facility] once daily Omeprazole (Prilosec) 40 mg Capsule,Delayed Release(Dr/Ec) Active 40 MG PO Daily April 25, 2022 12:00am Start: 11-27-2019 omeprazole (Pr iLOSEC) [address] capsule Indications: Heartburn TAKE 1 CAPSULE EVERY DAY 90 capsule 3 01/15/2025 Active ondansetron 4 mg disintegrating oral tablet (20 sources) Serotonin-3 Receptor Antagonist Start: 03-25-2025 End: 04-01-2025 take 1 tablet by mouth every eight hours for nausea ondansetron ODT (Zofran-ODT) 4 MG disintegrating tablet Indications: Nausea and vomiting, unspecified vomiting type Take 1 tablet (4 mg) by mouth every 8 (eight) hours if needed for nausea or vomiting for up to 7 days 20 tablet 03/25/2025 04/01/2025 Active Start: 03-17-2025 End: 03-17-2025 4 mg, Intravenous, Every 15 min PRN, nausea, vomiting, Starting on Mon03/17/25 at 1601, For 2 doses, PACU (only), Do not give more than 2 doses. Administer first as needed for nausea/vomiting, or as directed by anesthesia Start: 03-14-2025 End: 03-14-2025 4 mg, Intravenous, Once, On Mon03/14/25 at 1445, For 1 dose Start: 03-14-2025 End: 03-21-2025 take 4 mg intravenously every six hours as needed for nausea and vomiting 4 mg, Intravenous, Every 6 hours PRN, nausea, vomiting, Starting on Mon03/14/25 at 1441 Start: 06-06-2023 End: 03-14-2025 ondansetron (ZOFRAN) 4 MG ta blet 06/06/2023 03/14/2025 Discontinued (Therapy completed) Start: 01-18-2022 End: 01-18-2022 ondansetron (ZOFRAN) injecti on 4 mg Start: 10-08-2018 End: 10-08-2018 ondansetron (ZOFRAN) injecti on 4 mg Start: 09-13-2018 End: 09-13-2019 take 1 tablet by mouth every eight hours as needed ondansetron (ZOFRAN) 4 MG tablet Take 1 (one) tablet (4 mg total) by mouth every 8 (eight) hours as needed for nausea . 20 tablet 0 09/13/2018 03/13/2019 Discontinued (Therapy completed) povidone-iodine 100 mg/ml topical solution (2 sources) Antiseptic Start: 09-13-2018 End: 09-20-2018 povidone-iodine (BETADINE) 10 % external solution Apply topically as needed for wound care Apply daily to foot . 480 mL 0 09/13/2018 09/20/2018 Active rivaroxaban 2.5 mg oral tablet (20 sources) Factor Xa Inhibitor Start: 04-09-2025 rivaroxaban (Xarelto ) 2.5 MG tablet Indications: Paroxysmal atrial fibrillation (HCC) TAKE 1 TABLET TWICE DAILY 180 tablet 3 04/09/2025 Active Start: 04-25-2022 End: 11-08-2022 take 1 tablet by mouth once daily Rivaroxaban (Xarelto) 2.5 mg tablet Active 2.5 MG PO Daily April 25, 2022 12:00am Start: 11-27-2019 End: 03-21-2025 rivaroxaban (Xarelto) 2.5 MG tablet Indications: Paroxysmal atrial fibrillation (HCC) TAKE 1 TABLET TWICE DAILY 200 tablet 3 09/27/2024 Active Start: 07-03-2019 Xarelto Start Date: 07/03/19 Status: Ordered Start: 08-09-2018 End: 09-13-2018 take 2 tablets by mouth once daily XARELTO 15 mg Tab take 2 tablets by mouth once daily for 3 weeks 0 08/09/2018 09/13/2018 Discontinued Rivaroxaban 20 M G tablet Take 2.5 mg by mouth 2 times daily. Start in 22 days after the 15mg dose is completed 0 Active End: 01-19-2022 rivaroxaban (XARELTO) 20 mg Tab Take 20 mg by mouth . 0 01/19/2022 Discontinued sennosides, chcf 8.6 mg oral tablet (9 sources) Start: 09-04-2011 End: 01-21-2022 take 1 tablet by mouth once daily senna 8.6 MG PO TABS take 1 Tab by mouth daily. 30 Tab 5 09/04/2011 Active sulfamethoxazole 800 mg / trimethoprim 160 mg oral tablet (15 sources) Dihydrofolate Reductase Inhibitor Antibacterial, Sulfonamide Antimicrobial Start: 04-08-2025 End: 04-15-2025 take 1 tablet by mouth once in the morning, then take 1 tablet by mouth once at bedtime sulfamethoxazol e-trimethoprim (Bactrim DS) 800-160 MG per tablet Indications: Ischemic toe ulcer, right, with 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) Take 1 tablet by mouth in the morning and 1 tablet before bedtime. Do all this for 7 days. 14 tablet 04/08/2025 04/15/2025 Active Start: 01-29-2022 End: 01-21-2022 take 1 tablet by mouth twice daily sulfamethoxazole-trimethoprim (BACTRIM DS,SEPTRA DS) 800-160 mg per tablet Take 1 (one) tablet by mouth 2 (two) times a day for 3 days Start: 01/29/22. 6 tablet 0 01/29/2022 01/21/2022 Discontinued (Reorder) Start: 01-18-2022 End: 04-15-2022 take 1 tablet by mouth twice daily sulfamethoxazole-trimethoprim (BACTRIM DS,SEPTRA DS) 800-160 mg per tablet Take 1 tablet by mouth 2 (two) times a day . 0 01/18/2022 04/15/2022 Discontinued tamsulosin hydrochloride 0.4 mg oral capsule (20 sources) alpha-Adrenergic María Start: 03-31-2025 End: 07-09-2025 take 1 capsule by mouth every twenty-four hours in the morning tamsulosin (Flomax) 0.4 MG 24 hr capsule Indications: History of prostate cancer , Urinary hesitancy Take 1 capsule (0.4 mg) by mouth in the morning and 1 capsule (0.4 mg) before bedtime. 200 capsule 03/31/2025 07/09/2025 Active Start: 01-09-2025 End: 03-31-2025 take 1 capsule by mouth once daily tamsulosin (Flomax) 0.4 MG 24 hr capsule Indications: History of prostate cancer , Urinary hesitancy TAKE 1 CAPSULE BY MOUTH DAILY 30 capsule 1 03/07/2025 03/31/2025 Discontinued (Reorder) therapeutic multivitamin-minerals tablet (8 sources) Start: 07-15-2021 take 1 tablet by mouth at bedtime therapeutic multivitamin-minerals tablet Take 1 tablet by mouth at bedtime. 30 tablet 0 07/15/2021 Active Completed/Discontinued Medications Medication Drug Class(es) Dates Sig (Normalized) Sig (Original) acetaminophen 325 mg oral tablet (15 sources) Start: 03-14-2025 End: 03-21-2025 take 650 mg by mouth every four hours 650 mg, Oral, Every 4 hours while awake, First dose on Mon03/14/25 at 1500 Start: 04-15-2022 End: 04-15-2022 take 1 tablet by mouth every four hours as needed for pain and headache 650 mg, Oral, Every 4 hours PRN, mild pain, fever 100.4 F or greater, headaches, Starting on Mon04/15/22 at 0101 Start: 01-19-2022 End: 01-21-2022 take 1 tablet by mouth every four hours as needed for pain and headache acetaminophen (TYLENOL) tablet 650 mg Start: 01-18-2022 End: 01-19-2022 acetaminophen (TYLENOL) tabl et 975 mg Start: 07-15-2021 End: 01-21-2022 take 2 tablets by mouth every four hours as needed acetaminophen 325 MG tablet Take 2 tablets by mouth every 4 hours as needed for Mild Pain. 50 tablet 1 07/15/2021 Active Start: 10-09-2018 End: 10-12-2018 take 1 tablet by mouth every six hours as needed acetaminophen (TYLENOL) tablet 650 mg Start: 09-05-2018 End: 09-13-2018 take 1 tablet by mouth every four hours as needed 650 mg, Oral, Every 4 hours PRN, mild pain, fever 100.4 F or greater, headaches, Starting 09/05/18 at 1603 [id number] 200 actuat albuter ol 0.09 mg/actuat metered dose inhaler (20 sources) beta2-Adrenergic Agonist Start: 03-14-2025 End: 03-21-2025 Start: 03-11-2025 take 1 puff(s) by in halation every four to six hours as needed for wheezing Albuterol Sulfate 90 mcg/actuation HFA aerosol inhaler Active 2 PUFF INHALATION EVERY 4-6 HOURS as needed for shortness of breath or wheezing March 11, 2025 12:00am Complies with drug therapy Start: 01-30-2024 End: 12-26-2024 take 1 puff(s) by inhalation every four hours for wheezing albuterol HFA 90 mcg/act inhaler Indications: Sinusitis, unspecified chronicity, unspecified location Inhale 1 puff every 4 (four) hours if needed for wheezing or shortness of breath 76.5 Unspecified 3 11/26/2024 Active Start: 04-15-2022 End: 04-15-2022 take 2 puff(s) by inhalation every four hours as needed for wheezing 2 puff, Inhalation, Every 4 hours PRN, wheezing, shortness of breath, Starting on Mon04/15/22 at 0101 SPACER REQUIRED FOR ADMINISTRATION Start: 02-25-2022 End: 08-30-2023 take 2 puff(s) by inhalation every four hours as needed for cough albuterol 90 mcg/actuation inhaler Indications: Chronic obstructive pulmonary disease, unspecified COPD type (HCC) Inhale 2 (two) puffs every 4 (four) hours as needed for wheezing, shortness of breath or cough . 54 g 3 08/30/2022 Active Start: 01-21-2022 End: 03-14-2025 take 2.5 mg by inhalation every six hours as needed for wheezing albuterol (PROVENTIL) 2.5 mg /3 mL (0.083 %) nebulizer solution Take 3 mL (2.5 mg total) by nebulization every 6 (six) hours as needed for wheezing . 12 mL 2 01/21/2022 03/14/2025 Discontinued (Therapy completed) Albuterol Sulfat e HFA 108 (90 Base) MCG/ACT Inhalation for 50 Days Active albuterol (2.5 M G/3ML) 0.083% inhalation solution albuterol sulfate 2.5 mg/3 mL (0.083 %) solution for nebulization 0 Active Albuterol Sulfat e HFA 108 (90 Base) MCG/ACT Inhalation for 50 Days Active albuterol (PROVE NTIL) (2.5 MG/3ML) 0.083% nebulizer solution Take 2.5 mg by nebulization every 6 hours as needed for Wheezing 0 Active alprostadil 0.5 mg urethral suppository (1 source) Prostaglandin Analog, Prostaglandin E1 Agonist End: 08-09-2023 alprostadiL ([place]) 500 mcg pellet aluminum hydroxide 40 mg/ml / magnesium hydroxide 40 mg/ml / simethicone 4 mg/ml oral suspension (3 sources) Start: 03-14-2025 End: 03-21-2025 take 30 mL by mouth every four hours as needed Start: 11-03-2022 End: 11-08-2022 take 30 mL by mouth every four hours as needed 30 mL, Oral, Every 4 hours PRN, indigestion, Starting on Mon11/03/22 at 2228 Start: 10-10-2018 End: 10-12-2018 aluminum-magnesium hydroxide-simethicone (MAALOX PLUS) 200-200-20 mg/5 mL suspension 30 mL aspirin 81 mg delayed release oral tablet (20 sources) Platelet Aggregation Inhibitor, Nonsteroidal Anti-inflammatory Drug Start: 03-14-2025 End: 03-21-2025 take 81 mg by mouth once daily 81 mg, Oral, Daily, First dose on Mon03/14/25 at 1635, DO NOT CRUSH OR CHEW. Start: 11-04-2022 End: 11-08-2022 take 81 mg by mouth once daily 81 mg, Oral, Daily, [facility] dose on Mon11/04/22 at 0900 Start: 01-19-2022 End: 01-21-2022 take 81 mg by mouth once daily 81 mg, Oral, Daily, [facility] dose on Mon01/19/22 at 0900 Start: 11-27-2019 take 1 capsule by [facility] once daily aspirin 81 mg cap Take 1 (one) capsule (81 mg total) by mouth daily . 11/27/2019 Active Start: 07-03-2019 aspirin Start Date: 07/03/19 Status: Ordered Start: 09-05-2018 End: 09-06-2018 take 162 mg by mouth once daily 162 mg, Oral, Daily, F irst dose on Mon09/05/18 at 1700 DO NOT CRUSH OR CHEW. Start: 09-05-2018 End: 09-13-2018 aspirin chewable tablet 81 m g Start: 05-10-2017 End: 04-15-2022 take 1 tablet by mouth once daily Aspirin (Aspir-81) 8 1 mg Tablet,Delayed Release (Dr/Ec) Active 81 MG PO Daily May 10, 2017 12:00am Complies with drug therapy Baby Aspirin Act tatum 1 ml atropine sulfate 1 mg/ml injection (1 source) Anticholinergic, Cholinergic Muscarinic Antagonist Start: 09-05-2018 End: 09-13-2018 1 mg, Intravenous, As needed , SINGLE DOSE for bradycardia (HR less than 50), complete heart block, or escape rhythms with symptoms of hemodynamic compromise, Starting Mon09/05/18 at 1603 [] NOTIFY PHYSICIAN, and request patient transfer to cardiac unit if not already there. [] If patient has history of glaucoma, notify physician before administering Atropine, if condition allows. azelastine hydrochloride 0.137 mg/actuat metered dose nasal spray (20 sources) Histamine-1 Receptor Antagonist Start: 03-15-2025 End: 03-21-2025 1 spray, Each Nare, Daily, First dose on 03/15/25 at 0900 Start: 03-11-2025 take 1 spray(s) nasa l route twice daily Azelastine 137 mcg (0.1 %) spray,non-aerosol Active 1 SPRAY INTRANASAL Twice daily March 11, 2025 12:00am administer into each nostril Complies with drug therapy Start: 11-04-2024 take 1 spray(s) nasa l route in the morning Azelastine HCl 137 MCG/SPRAY solution Indications: Seasonal allergic rhinitis due to pollen Administer 1 spray into affected nostril(s) in the morning and 1 spray before bedtime. Do all this for 14 days. 90 mL 3 11/04/2024 Active Start: 05-21-2024 End: 12-30-2024 take 1 spray(s) nasal route in the morning Azelastine HCl 137 MCG/SPRAY solution Indications: Seasonal allergic rhinitis due to pollen Administer 1 spray into affected nostril(s) in the morning and 1 spray before bedtime. Do all this for 14 days. 30 mL 08/12/2024 Active benzonatate 100 mg oral capsule (13 sources) Non-narcotic Antitussive Start: 10-30-2022 End: 10-30-2022 benzonatate (TESSALON) capsule 100 mg Start: 10-30-2022 End: 11-08-2022 benzonatate (TESSALON) capsu le 100 mg End: 03-13-2019 take 1 capsule by mouth three times daily as needed for cough benzonatate (TESSALON) 100 MG capsule Take 100 mg by mouth 3 (three) times a day as needed for cough . 0 03/13/2019 Discontinued (Therapy completed) bisacodyl 10 mg rectal suppository (13 sources) Stimulant Laxative Start: 10-11-2018 End: 10-12-2018 bisacodyl (DULCOLAX) suppository 10 mg Start: 09-04-2018 End: 09-13-2018 take 5 mg by mouth once daily as needed for constipation 5 mg, Oral, Daily PRN, constipation, Starting Mon09/04/18 at 2247 DO NOT CRUSH OR CHEW. End: 03-13-2019 take 1 tablet by mouth twice daily as needed for constipation bisacodyl (DULCOLAX) 5 mg EC tablet Take 5 mg by mouth 2 (two) times a day as needed for constipation . 0 03/13/2019 Discontinued (Therapy completed) budesonide-formoteroL (SYMBICORT) 160-4.5 mcg/actuation inhaler 2 puff (1 source) Start: 11-03-2022 End: 11-08-2022 budesonide-formoteroL (SYMBICORT) 160-4.5 mcg/actuation inhaler 2 puff calcium carbonate 500 mg chewable tablet (1 source) Start: 03-14-2025 End: 03-21-2025 take 500 mg by mouth once daily as needed for gastroesophageal reflux disease 500 mg, Oral, Daily PRN, indigestion, heartburn, Starting on Mon03/14/25 at 6, Give with Food calcium chloride 0.001 meq/ml / glucose 50 mg/ml / potassium chloride 0.004 meq/ml / sodium chloride 0.103 meq/ml / sodium lactate 0.028 meq/ml injectable solution (1 source) Start: 09-07-2018 End: 09-08-2018 dextrose 5 % in lactated ringers infusion calcium chloride 0.0014 meq/ml / potassium chloride 0.004 meq/ml / sodium chloride 0.103 meq/ml / sodium lactate 0.028 meq/ml injectable solution (1 source) Start: 09-07-2018 End: 09-08-2018 lactated Ringers infusion cefdinir 300 mg oral capsule (1 source) Cephalosporin Antibacterial End: 08-09-2023 cefdinir (OMNICEF) 300 MG capsule cefepime 2000 mg injection (1 source) Cephalosporin Antibacterial Start: 11-04-2022 End: 11-08-2022 take 2000 mg intravenously every twelve hours cefePIMe-dextrose (MAXIPIME) 2 gram/50 mL IVPB 2,000 mg cefTRIAXone 2000 mg injection (2 sources) Cephalosporin Antibacterial Start: 11-03-2022 End: 11-03-2022 cefTRIAXone (ROCEPHIN) IVPB 2 g (premix) Start: 01-18-2022 End: 01-18-2022 cefTRIAXone (ROCEPHIN) IVPB 2 g (premix) cephalexin 500 mg oral capsule (6 sources) Cephalosporin Antibacterial Start: 01-18-2022 End: 04-15-2022 take 1 capsule by mouth three times daily cephALEXin (KEFLEX) 500 MG capsule Take 500 mg by mouth 3 (three) times a day . 0 01/18/2022 04/15/2022 Discontinued Start: 09-29-2018 End: 10-12-2018 take 1 capsule by mouth three times daily cephALEXin (KEFLEX) 500 MG capsule Take 500 mg by mouth 3 (three) times a day (for 7 days) . 0 09/29/2018 10/12/2018 Discontinued clopidogrel 75 mg oral tablet (20 sources) [id number] Platelet Inhibitor Start: 03-14-2025 End: 03-15-2025 Starting on Mon03/14/25 at 1702, For 1 dose, HERRERA BACK: nellat override Start: 09-05-2018 End: 10-25-2018 take 1 tablet by mouth once daily clopidogrel (PLAVIX) 75 mg tablet Take 1 (one) tablet (75 mg total) by mouth daily . 30 tablet 1 09/13/2018 10/13/2018 Active Start: 05-10-2017 End: 05-12-2017 take 1 tablet by mouth once daily Clopidogrel (Plavix) 75 mg Tablet Discontinued 75 MG PO Daily May 10, 2017 12:00am May 12, 2017 11:03am cyclobenzaprine hydrochloride 10 mg oral tablet (1 source) Muscle Relaxant Start: 03-17-2025 End: 03-20-2025 take 10 mg by mouth every eight hours 10 mg, Oral, Every 8 hours scheduled, First dose on Mon03/17/25 at 2200 dexamethasone 1 mg/ml / neomycin 3.5 mg/ml / polymyxin b [id number] unt/ml ophthalmic suspension (1 source) Aminoglycoside Antibacterial, Polymyxin-class Antibacterial, Corticosteroid End: 08-09-2023 neomycin-polymyxi n-dexamethasone (MAXITROL) 3.5mg/mL-10,000 unit/mL-0.1 % ophthalmic suspension docusate sodium 50 mg / sennosides, chcf 8.6 mg oral tablet (13 sources) Start: 03-14-2025 End: 03-21-2025 take 1 tablet by mouth once daily as needed for constipation 1 tablet, Oral, Daily PRN, constipation, Starting on Mon03/14/25 at 2025, Use as first line agent for constipation. Do Not Crush or Chew if administering orally due to bitter taste. May be crushed if given via tube. Start: 10-06-2018 End: 10-12-2018 senna-docusate (SENNA-S) 8.6 -50 mg per tablet 1 tablet Start: 09-13-2018 End: 10-13-2018 take 1 tablet by mouth twice daily senna-docusate (SENNA-S) 8.6-50 mg Take 1 (one) tablet by mouth 2 (two) times a day . 60 tablet 0 10/12/2018 10/12/2018 Discontinued Start: 09-11-2018 End: 09-13-2018 senna-docusate (SENNA-S) 8.6 -50 mg per tablet 2 tablet Start: 09-04-2018 End: 09-06-2018 take 1 tablet by mouth twice daily 1 tablet, Oral, 2 times daily, First dose on Mon09/04/18 at 2300 NOT for abdominal surgery patients. Hold for loose stools. Do Not Crush or Chew if administering orally due to bitter taste. May be crushed if given via tube. doxycycline hyclate 100 mg oral capsule (13 sources) Tetracycline-class Drug Start: 01-17-2022 End: 01-19-2022 take 1 capsule by mouth twice daily doxycycline hyclate (VIBRAMYCIN) 100 MG capsule Take 100 mg by mouth 2 (two) times a day . 0 01/17/2022 01/19/2022 Discontinued Start: 10-12-2018 End: 10-22-2018 take 1 tablet by mouth twice daily doxycycline hyclate (VIBRA-TABS) 100 MG tablet Take 1 (one) tablet (100 mg total) by mouth 2 (two) times a day for 10 days . 20 tablet 0 10/12/2018 10/22/2018 Active Start: 09-12-2018 End: 09-30-2018 take 1 tablet by mouth twice daily doxycycline hyclate (VIBRA-TABS) 100 MG tablet Take 1 (one) tablet (100 mg total) by mouth 2 (two) times a day for 10 days . 28 tablet 0 09/20/2018 09/30/2018 Active 0.4 ml enoxaparin sodium 100 mg/ml prefilled syringe (13 sources) Low Molecular Weight Heparin Start: 03-15-2025 End: 03-15-2025 inject 40 mg by subcutaneous injection once daily 40 mg, Subcutaneous, Daily, First dose on 03/15/25 at 0800, Administer in abdomen unless otherwise directed by prescriber. Notify physician if patient refuses., Indication: VTE Prophylaxis Start: 01-19-2022 End: 01-21-2022 enoxaparin (LOVENOX) syringe 40 mg Start: 10-12-2018 End: 11-11-2018 inject 0.4 mL by subcutaneous injection once daily enoxaparin (LOVENOX) 40 mg/0.4 mL Syrg Inject 0.4 mL (40 mg total) under the skin daily . 12 mL 0 10/12/2018 11/11/2018 Active Start: 10-11-2018 End: 10-12-2018 enoxaparin (LOVENOX) syringe 40 mg Start: 10-09-2018 End: 10-10-2018 enoxaparin (LOVENOX) syringe 40 mg Start: 10-05-2018 End: 10-07-2018 enoxaparin (LOVENOX) syringe 40 mg 1 ml fentaNYL 0.05 mg/ml injection (3 sources) Opioid Agonist Start: 03-17-2025 End: 03-17-2025 25 mcg, Intravenous, Every 5 min PRN, Pain, Starting on Mon03/17/25 at 1601, For 4 doses, PACU (only), [] Do not give more than 100 mcg while in PACU. Start: 04-14-2022 End: 04-14-2022 fentaNYL (SUBLIMAZE) injecti on 50 mcg Start: 09-07-2018 End: 09-08-2018 50 mcg, Intravenous, Every 5 min PRN, moderate to severe pain, Starting Mon09/07/18 at 1507, For 4 doses, PACU (only) 30 actuat fluticasone furoate 0.1 mg/actuat / umeclidinium 0.0625 mg/actuat / vilanterol 0.025 mg/actuat dry powder inhaler (5 sources) Anticholinergic, Corticosteroid, beta2-Adrenergic Agonist Start: 10-27-2022 End: 08-09-2023 kbloqomceif-jsyyysmhc-icebij er (Trelegy Ellipta) 100-62.5-25 mcg DsDv 1 puff every night at bedtime . 0 10/27/2022 08/09/2023 Discontinued (Discontinued by another clinician) furosemide 20 mg oral tablet (20 sources) Loop Diuretic Start: 03-15-2025 End: 03-21-2025 take 20 mg by mouth every other day 20 mg, Oral, Every other day, First dose on Mon03/15/25 at 0900 Start: 10-14-2024 furosemide (La six) 20 MG tablet Indications: Benign essential hypertension TAKE 1 TABLET EVERY MORNING 90 tablet 3 10/14/2024 Active Start: 10-12-2023 furosemide (La six) 20 MG tablet Indications: Benign essential hypertension (CMS/HCC) TAKE 1 TABLET EVERY MORNING 100 tablet 3 10/12/2023 Active Start: 11-08-2022 End: 08-09-2023 take 1 tablet by mouth once daily furosemide (LASIX) 20 MG tablet Take 1 (one) tablet (20 mg total) by mouth daily Start: 11/09/22. 30 tablet 0 11/09/2022 08/09/2023 Discontinued (Discontinued by another clinician) Start: 11-03-2022 End: 11-07-2022 furosemide (LASIX) injection 20 mg Start: 05-10-2017 End: 05-12-2017 take 1 tablet by mouth once daily Furosemide 20 mg Tablet Discontinued 20 MG PO Daily May 10, 2017 12:00am May 12, 2017 11:03am gabapentin 100 mg oral capsule (20 sources) Anti-epileptic Agent Start: 01-19-2022 End: 11-08-2022 take 100 mg by mouth every eight hours 100 mg, Oral, Every 8 hours scheduled, First dose on Mon04/15/22 at 0200 Start: 10-05-2021 take 1 capsule by [facility] three times daily gabapentin 300 mg Cap 300 mg = 1 cap(s), Oral, TID, # 270 cap(s), Refills(s) 0 Start Date: 10/05/21 Status: Ordered Start: 10-12-2018 End: 03-13-2019 gabapentin (NEURONTIN) 100 M G capsule Take 2 (two) capsules (200 mg total) by mouth every 8 (eight) hours (Days supply per fill: 30) . 180 capsule 0 10/12/2018 03/13/2019 Discontinued (Therapy completed) Start: 10-12-2018 End: 10-12-2018 gabapentin (NEURONTIN) capsu le 200 mg Start: 09-07-2018 End: 10-13-2018 take 1 capsule by mouth every eight hours gabapentin (NEURONTIN) 400 MG capsule Take 1 (one) capsule (400 mg total) by mouth every 8 (eight) hours . 90 capsule 1 09/13/2018 10/13/2018 Active Start: 09-04-2018 End: 09-07-2018 take 300 mg by mouth every twelve hours 300 mg, Oral, Every 12 hours scheduled, First dose on Mon09/04/18 at 2350 Start: 07-12-2018 End: 09-13-2018 take 3 capsules by mouth three times daily gabapentin (NEURONTIN) 100 MG capsule Take 300 mg by mouth 3 (three) times a day . 0 07/12/2018 09/13/2018 Discontinued End: 08-09-2023 take 1 capsule by mouth three times daily gabapentin (NEURONTIN) 100 MG capsule Take 1 capsule 3 times a day by oral route for 30 days. 0 08/09/2023 Discontinued (Discontinued by another clinician) Gabapentin Activ e gabapentin (NEUR ONTIN) 100 MG capsule Take 100 mg by mouth every 8 (eight) hours (Days supply per fill: {DAYS SUPPLY:61278}) . 0 Active 250 ml heparin sodium, porcine 100 unt/ml injection (4 sources) Unfractionated Heparin, Anti-coagulant Start: 03-15-2025 End: 03-17-2025 0-70 Units/kg/hr 110.2 kg (0-77.14 mL/hr, rounded to 0-77.1 mL/hr), Intravenous, Continuous, Starting on 03/15/25 at 1345, Choose one of the following protocols: Cardiac / Arterial, Bolus options: Protocol WITHOUT initial bolus only, For Downtime Calculator, use: Heparin Infusion Standard Start: 09-11-2018 End: 09-13-2018 heparin (porcine) injection 5,000 Units Start: 09-04-2018 End: 09-08-2018 heparin (porcine) 25,000 uni t/250 mL(100 unit/mL) in D5W infusion heparin bolus from bag 0-5,000 Units (3 sources) Start: 03-15-2025 End: 03-17-2025 0-5,000 Units, Intravenous, Continuous PRN, IF the MAR calculator for heparin infusion specifies a bolus from bag is to be administered, Starting on 03/15/25 at 1248, Choose one of the following protocols: Cardiac / Arterial, Bolus options: Protocol WITHOUT initial bolus only, For Downtime Calculator, use: Heparin Infusion Standard Start: 09-06-2018 End: 09-08-2018 heparin bolus from bag 0-5,0 00 Units Start: 09-04-2018 End: 09-05-2018 heparin bolus from bag 0-5,0 00 Units 1 ml hydrALAZINE hydrochloride 20 mg/ml injection (2 sources) Arteriolar Vasodilator Start: 03-17-2025 End: 03-17-2025 5 mg, Intravenous, Every 15 min PRN, SBP greater than 160 or DBP greater than 90, Starting on 03/17/25 at 1601, For 4 doses, PACU (only), Do not give more than 20 mg total. Hold for HR greater than 100. Administer if labetalol or metoprolol ineffective at maximum dose or not ordered. Start: 10-11-2018 End: 10-12-2018 take 5 mg intravenous route every four hours as needed hydrALAZINE (APRESOLINE) injection 5 mg 0.5 ml HYDROmorphone hydrochloride 1 mg/ml prefilled syringe (3 sources) Opioid Agonist Start: 03-17-2025 End: 03-19-2025 take 1 mg intravenously every three hours as needed 1 mg, Intravenous, Every 3 hours PRN, breakthru pain not controlled by PO, Starting on Mon03/17/25 at 1024 Start: 03-14-2025 End: 03-17-2025 take 0.5 mg intravenously every three hours as needed 0.5 mg, Intravenous, Every 3 hours PRN, breakthru pain not controlled by PO, Starting on Mon03/14/25 at 1413 Start: 03-14-2025 End: 03-14-2025 0.5 mg, Intravenous, Once, O n Mon03/14/25 at 1230, For 1 dose HYDROmorphone (DILAUDID) 0.5 mg/mL injection 0.25 mg (1 source) Start: 10-08-2018 End: 10-08-2018 0.25 mg, Intravenous, Every 5 min PRN, moderate to severe pain, Starting Mon10/08/18 at 0835, For 6 doses, PACU (only) [] Give if fentanyl not effective or not ordered. [] Do not give more than 1.5 mg total. HYDROmorphone (DILAUDID) 0.5 mg/mL injection 0.25-0.5 mg (1 source) Start: 09-04-2018 End: 09-06-2018 take 0.25-0.5 mg intravenous route every three hours as needed 0.25-0.5 mg, Intravenous, Every 3 hours PRN (may repeat), breakthrough pain, Starting Mon09/04/18 at 2336 [] Initiate with 0.25 mg IV every 3 hours prn moderate to severe pain. [] For unrelieved pain, may repeat 0.25 mg IV dose within 30 minutes of initial dose. [] If pain is RELIEVED after repeat dose, change to 0.5 mg IV every 3 hours prn moderate to severe pain. [] If pain is UNrelieved after repeat dose, or patient requires dose reduction, call physician. [] May use IV for breakthrough pain or if unable to tolerate oral route. HYDROmorphone (DILAUDID) 0.5 mg/mL injection 0.5 mg (2 sources) Start: 09-08-2018 End: 09-08-2018 0.5 mg, Intravenous, Every 10 min PRN, moderate to severe pain, Starting 09/08/18 at 0051, For 6 doses, PACU (only) [] Give if fentanyl not effective or not ordered. [] Do not give more than 3 mg total. Start: 09-04-2018 End: 09-04-2018 HYDROmorphone (DILAUDID) 0.5 mg/mL injection 0.5 mg HYDROmorphone (DILAUDID) 0.5 mg/mL injection 0.5-1.5 mg (1 source) Start: 09-05-2018 End: 09-05-2018 HYDROmorphone (DILAUDID) 0.5 mg/mL injection 0.5-1.5 mg HYDROmorphone (DILAUDID) 0.5 mg/mL injection 1 mg (1 source) Start: 09-05-2018 End: 09-05-2018 HYDROmorphone (DILAUDID) 0.5 mg/mL injection 1 mg HYDROmorphone (DILAUDID) injection 0.5 mg (1 source) Start: 03-17-2025 End: 03-17-2025 0.5 mg, Intravenous, Every 1 0 min PRN, Pain, Starting on Mon03/17/25 at 1601, For 6 doses, PACU (only), Give if fentanyl not effective or not ordered. Do not give more than 3 mg total. HYDROmorphone in 0.9 % NaCl (DILAUDID) 15 mg/30 mL (0.5 mg/mL) LAGGING MACHINE OPERATOR (1 source) Start: 09-06-2018 End: 09-07-2018 HYDROmorphone in 0.9 % NaCl (DILAUDID) 15 mg/30 mL (0.5 mg/mL) LAGGING MACHINE OPERATOR iopamidoL (ISOVUE-370) 370 m g iodine /mL (76 %) injection 75 mL (1 source) Start: 11-03-2022 End: 11-03-2022 iopamidoL (ISOVUE-370) 370 m g iodine /mL (76 %) injection 75 mL iopamidoL (ISOVUE-370) 76 % injection 125 mL (3 sources) Start: 04-14-2022 End: 04-14-2022 iopamidoL (ISOVUE-370) 76 % injection 125 mL Start: 01-19-2022 End: 01-19-2022 iopamidoL (ISOVUE-370) 76 % injection 125 mL Start: 10-21-2019 End: 10-21-2019 iopamidoL (ISOVUE-370) 76 % injection 125 mL iopamidoL (ISOVUE-370) 76 % injection 75 mL (1 source) Start: 04-14-2022 End: 04-15-2022 iopamidoL (ISOVUE-370) 76 % injection 75 mL 1 ml ketorolac tromethamine 30 mg/ml injection (2 sources) Nonsteroidal Anti-inflammatory Drug, Cyclooxygenase Inhibitor Start: 10-09-2018 End: 10-10-2018 take 15 mg intravenous route every six hours ketorolac (TORADOL) injection 15 mg End: 08-09-2023 ketorolac (ACULAR) 0.5 % oph thalmic solution 4 ml labetalol hydrochloride 5 mg/ml cartridge (1 source) beta-Adrenergic María Start: 03-17-2025 End: 03-17-2025 5 mg, Intravenous, Every 5 min PRN, SBP greater than 160 or DBP greater than 90, Starting on Mon03/17/25 at 1601, For 4 doses, PACU (only), Do not give more than 20 mg total. Hold for HR less than 50. ammonium lactate 120 mg/ml topical lotion (13 sources) Start: 12-28-2021 End: 12-28-2022 ammonium lactate (LAC-HYDRIN) 12 % lotion Apply topically 2 (two) times a day . 400 g 2 12/28/2021 11/08/2022 Discontinued (Stop Taking at Discharge) lactobacillus combo no.11 (PROBIOTIC) 15 billion cell CpSP (8 sources) End: 03-13-2019 lactobacillus combo no.11 (PROBIOTIC) 15 billion cell CpSP Take by mouth . 0 03/13/2019 Discontinued (Therapy completed) lactobacillus co mbo no.11 (PROBIOTIC) 15 billion cell CpSP Take by mouth . 0 Active lidocaine hydrochloride 0.02 mg/mg topical gel (1 source) Antiarrhythmic, Amide Local Anesthetic Start: 03-17-2025 End: 03-21-2025 1 Application, Intra-urethral, As needed, For insertion of Urinary Catheter, Starting on Mon03/17/25 at 2111, For 1 dose magnesium citrate 58.2 mg/ml oral solution (9 sources) Start: 09-13-2018 End: 10-12-2018 magnesium citrate solution Take 296 mL by mouth as needed (Take if no bowel movement for 2-3 days) . 296 mL 0 09/13/2018 10/12/2018 Discontinued Start: 09-05-2018 End: 09-05-2018 take 296 mL by mouth once 296 mL, Oral, Once, Wed at 1700, For 1 dose magnesium hydroxide 80 mg/ml oral suspension (1 source) Start: 01-19-2022 End: 01-21-2022 magnesium hydroxide (MOM) 40 0 mg/5 mL suspension 2,400 mg melatonin 5 mg oral tablet (2 sources) Start: 03-14-2025 End: 03-21-2025 Start: 01-19-2022 End: 01-21-2022 melatonin Tab 5 mg naloxegol 12.5 mg oral tablet (1 source) Opioid Antagonist Start: 09-12-2018 End: 09-13-2018 naloxegol (MOVANTIK) tablet 12.5 mg naloxone (NARCAN) injection 0.1 mg (6 sources) Start: 03-14-2025 End: 03-21-2025 naloxone (NARCAN) injection 0.1 mg Start: 11-04-2022 End: 11-08-2022 naloxone (NARCAN) injection 0.1 mg Start: 04-15-2022 End: 04-15-2022 naloxone (NARCAN) injection 0.1 mg Start: 01-19-2022 End: 01-21-2022 naloxone (NARCAN) injection 0.1 mg Start: 10-08-2018 End: 10-12-2018 naloxone (NARCAN) injection 0.1 mg Start: 09-07-2018 End: 09-13-2018 naloxone (NARCAN) injection 0.1 mg nepafenac 3 mg/ml ophthalmic suspension (1 source) Nonsteroidal Anti-inflammatory Drug End: 08-09-2023 nepafenac (Ilevro) 0.3 % DrpS ondansetron (ZOFRAN-ODT) disintegrating tablet 4 mg (4 sources) Start: 11-03-2022 End: 11-08-2022 take 1 tablet by mouth every six hours as needed for nausea and vomiting ondansetron (ZOFRAN-ODT) disintegrating tablet 4 mg Start: 04-15-2022 End: 04-15-2022 take 1 tablet by mouth every six hours as needed for nausea and vomiting ondansetron (ZOFRAN-ODT) disintegrating tablet 4 mg Start: 01-19-2022 End: 01-21-2022 take 1 tablet by mouth every six hours as needed for nausea and vomiting ondansetron (ZOFRAN-ODT) disintegrating tablet 4 mg Start: 10-08-2018 End: 10-12-2018 take 1 tablet by mouth every six hours as needed ondansetron (ZOFRAN-ODT) disintegrating tablet 4 mg oxyCODONE hydrochloride 5 mg oral tablet (14 sources) Opioid Agonist Start: 03-17-2025 End: 03-21-2025 take 5-10 mg by mouth every four hours as needed 5-10 mg, Oral, Every 4 hours PRN, moderate to severe pain, Starting on Mon03/17/25 at 2111, Initiate with 5 mg oral every 4 hours prn moderate to severe pain. For unrelieved pain, may repeat 5 mg within 60 minutes of initial dose. If pain is RELIEVED after repeat dose, change to 10 mg every 4 hours prn moderate to severe pain. If pain is UNrelieved after repeat dose, or patient requires dose reduction, call physician. Start: 07-15-2021 End: 01-21-2022 take 1-2 tablets by mouth every four to six hours as needed for pain oxyCODONE 5 MG tablet Indications: Acute postoperative pain of right hip Take 1-2 tabs po q 4-6 hours PRN pain. Wean as tolerated. 40 tablet 0 07/15/2021 Active Start: 09-07-2018 End: 09-20-2018 take 1 tablet by mouth every six hours as needed for pain oxyCODONE (ROXICODONE) 5 MG immediate release tablet Indications: Ischemic foot , Critical lower limb ischemia Take 1 (one) tablet (5 mg total) by mouth every 6 (six) hours as needed for pain . 28 tablet 0 09/13/2018 09/20/2018 Active Start: 09-04-2018 End: 09-06-2018 take 5-10 mg by mouth every four hours as needed 5-10 mg, Oral, Every 4 hours PRN (may repeat), moderate to severe pain, Starting 09/04/18 at 2336 Initiate with 5 mg oral every 4 hours prn moderate to severe pain. For unrelieved pain, may repeat 5 mg within 60 minutes of initial dose. If pain is RELIEVED after repeat dose, change to 10 mg every 4 hours prn moderate to severe pain. If pain is UNrelieved after repeat dose, or patient requires dose reduction, call physician. oxymetazoline hydrochloride 0.5 mg/ml nasal spray (2 sources) Start: 01-19-2022 End: 01-21-2022 oxymetazoline (AFRIN) 0.05 % nasal spray 2 spray End: 10-12-2018 oxymetazoline (AFRIN) 0.05 % nasal spray Instill 2 sprays into each nostril 2 (two) times a day as needed for congestion . 0 10/12/2018 Discontinued pantoprazole 40 mg delayed release oral tablet (16 sources) Proton Pump Inhibitor Start: 03-15-2025 End: 03-21-2025 take 40 mg by mouth once daily 40 mg, Oral, Daily, First dose on 03/15/25 at 0900, DO NOT CRUSH OR CHEW. Start: 11-03-2022 End: 11-08-2022 take 40 mg by mouth twice daily 40 mg, Oral, 2 times d aily, First dose on Prerna 11/03/22 at 2230 DO NOT CRUSH OR CHEW. Start: 04-15-2022 End: 04-15-2022 take 40 mg by mouth once daily 40 mg, Oral, Daily, Fir st dose on Mon04/15/22 at 0900 DO NOT CRUSH OR CHEW. Start: 01-19-2022 End: 01-21-2022 take 40 mg by mouth once daily 40 mg, Oral, Daily, Fir st dose on Mon01/19/22 at 0900 DO NOT CRUSH OR CHEW. Start: 10-12-2018 End: 03-13-2019 take 1 tablet by mouth once daily pantoprazole (PROTONIX) 40 MG tablet Take 1 (one) tablet (40 mg total) by mouth daily . 30 tablet 0 10/12/2018 03/13/2019 Discontinued (Therapy completed) Start: 10-09-2018 End: 10-12-2018 pantoprazole (PROTONIX) inje ction 40 mg perflutren lipid microsphere s (DEFINArbsource) 0.143 mg/mL solution 0-10 mL of mixture (2 sources) Start: 11-06-2022 End: 11-06-2022 perflutren lipid microsphere s (DEFINITY) 0.143 mg/mL solution 0-10 mL of mixture Start: 10-08-2018 End: 10-08-2018 perflutren lipid microsphere s (DEFINITY) 0.143 mg/mL solution 0-10 mL of mixture polyethylene glycol 3350 43225 mg powder for oral solution (20 sources) Osmotic Laxative Start: 09-04-2011 End: 03-21-2025 17 g, Oral, Daily, First dose on Mon03/15/25 at 0900 Start: 09-04-2011 take 1 dose by mouth twice daily polyethylene glycol PO PACK take 1 Packet by mouth 2 times daily. 60 Packet 5 09/04/2011 Active polyvinyl alcohol 0.014 ml/ml ophthalmic solution (1 source) Start: 03-14-2025 End: 03-21-2025 1 drop, Both Eyes, As needed, dry eyes, Starting on Mon03/14/25 at 2025 predniSONE 10 mg oral tablet (9 sources) Start: 05-10-2017 End: 04-25-2022 take 2 mg by mouth once daily Prednisone 10 mg Tablet Discontinued 2 MG PO Daily May 10, 2017 12:00am April 25, 2022 11:27am Start: 05-10-2017 End: 04-25-2022 take 2 mg by mouth once daily Prednisone Discontinued 2 MG PO Daily May 09, 2017 11:00pm April 25, 2022 10:27am End: 08-09-2023 predniSONE (DELTASONE) 10 MG tablet prochlorperazine 5 mg/ml injectable solution (2 sources) Phenothiazine Start: 03-18-2025 End: 03-21-2025 take 2.5 mg intravenously every six hours as needed for nausea 2.5 mg, Intravenous, Every 6 hours PRN, nausea, Starting on Mon03/18/25 at 0202, If IV, give slow IV push at a rate not exceeding 5 mg/minute and remain lying down for 30 minutes to reduce risk of hypotension. If IM, inject deep into outer buttocks quadrant. Start: 09-06-2018 End: 09-13-2018 take 5 mg intravenous route every six hours as needed prochlorperazine (COMPAZINE) injection 5 mg sildenafil 100 mg oral tablet (8 sources) Phosphodiesterase 5 Inhibitor Start: 05-10-2017 End: 10-12-2023 take 1 tablet by mouth once daily as needed Sildenafil 100 mg Tablet Discontinued 100 MG PO Daily as needed for Erectile Dysfunction May 10, 2017 12:00am October 12, 2023 9:54am 1000 ml sodium chloride 9 mg/ml injection (17 sources) Start: 03-17-2025 End: 03-21-2025 1,000 mL, Intra-catheter (arterial), Continuous, Starting on Mon03/17/25 at 2200, Maintain Arterial line at 300 mm Hg Start: 03-14-2025 End: 03-21-2025 1 spray, Each Nare, As wade d, irritation, Starting on Mon03/14/25 at 6, Upright delivers a spray; Horizontally a stream; Upside down a drop. Start: 03-14-2025 End: 03-21-2025 sodium chloride (PF) (NS) fl ush 5 mL Start: 11-05-2022 End: 11-08-2022 sodium chloride (OCEAN) 0.65 % nasal spray 1 spray Start: 11-03-2022 End: 11-08-2022 sodium chloride (PF) (NS) fl ush 5 mL Start: 11-03-2022 End: 11-08-2022 sodium chloride (PF) (NS) fl ush 5 mL Start: 04-15-2022 End: 04-15-2022 sodium chloride (PF) (NS) fl ush 5 mL Start: 04-14-2022 End: 04-15-2022 sodium chloride (PF) (NS) fl ush 5 mL Start: 01-19-2022 End: 01-21-2022 sodium chloride (PF) (NS) fl ush 5 mL Start: 01-18-2022 End: 01-18-2022 sodium chloride 0.9% (NS) bucky sheila 1,000 mL Start: 10-09-2018 End: 10-12-2018 sodium chloride 0.9% (NS) Start: 09-11-2018 End: 09-13-2018 sodium chloride 0.9% (NS) Start: 09-05-2018 End: 09-13-2018 take 125 mL intravenous route every hour 125 mL/hr, Intravenous, Continuous, Starting 09/05/18 at 1700, For 3 hours Start: 09-05-2018 End: 09-06-2018 sodium chloride 0.9% (NS) sodium chloride (PF) (NS) 0.9 % contrast line flush 10 mL (1 source) Start: 01-19-2022 End: 01-21-2022 sodium chloride (PF) (NS) 0.9 % contrast line flush 10 mL 10 actuat tiotropium 0.0025 mg/actuat inhalation spray (12 sources) Anticholinergic Start: 01-22-2022 End: 11-08-2022 take 2 puff(s) by inhalation once daily tiotropium bromide (SPIRIVA RESPIMAT) 2.5 mcg/actuation Mist Inhale 2 (two) puffs daily Start: 01/22/22. 4 g 2 01/22/2022 11/08/2022 Discontinued (Stop Taking at Discharge) Start: 01-22-2022 End: 02-21-2022 take 2 puff(s) by inhalation once daily tiotropium bromide (SPIRIVA RESPIMAT) 2.5 mcg/actuation Mist Inhale 2 (two) puffs daily Start: 01/22/22. 4 g 2 01/22/2022 Start: 01-19-2022 End: 01-21-2022 tiotropium bromide (SPIRIVA RESPIMAT) 2.5 mcg/actuation inhaler 2 puff traZODone hydrochloride 50 mg oral tablet (1 source) Serotonin Reuptake Inhibitor Start: 10-04-2018 End: 10-12-2018 traZODone (DESYREL) tablet 50 mg urea 400 mg/ml topical cream (10 sources) End: 03-14-2025 urea (CARMOL) 40 % Crea 03/14/2025 Discontinued (Therapy completed) 150 ml vancomycin 5 mg/ml injection (1 source) Glycopeptide Antibacterial Start: 11-04-2022 End: 11-04-2022 take 750 mg intravenously every twelve hours vancomycin (VANCOCIN) 750 mg in sodium chloride 0.9% (NS) 150 mL IVPB vancomycin (VANCOCIN) 1,500 mg in sodium chloride 0.9 % (NS) 500 mL IVPB (1 source) Start: 10-08-2018 End: 10-10-2018 take 1500 mg intravenous route every twelve hours vancomycin (VANCOCIN) 1,500 mg in sodium chloride 0.9 % (NS) 500 mL IVPB vancomycin (VANCOCIN) 1,750 mg in sodium chloride 0.9 % (NS) 500 mL IVPB (3 sources) Start: 10-12-2018 End: 10-12-2018 vancomycin (VANCOCIN) 1,750 mg in sodium chloride 0.9 % (NS) 500 mL IVPB Start: 10-11-2018 End: 10-11-2018 vancomycin (VANCOCIN) 1,750 mg in sodium chloride 0.9 % (NS) 500 mL IVPB Start: 10-04-2018 End: 10-08-2018 vancomycin (VANCOCIN) 1,750 mg in sodium chloride 0.9 % (NS) 500 mL IVPB vancomycin (VANCOCIN) 1750 mg in sodium chloride 0.9% (NS) 500 mL IVPB (1 source) Start: 01-20-2022 End: 01-21-2022 vancomycin (VANCOCIN) 1750 mg in sodium chloride 0.9% (NS) 500 mL IVPB vancomycin (VANCOCIN) 2,500 mg in sodium chloride 0.9 % (NS) 500 mL IVPB (1 source) Start: 11-03-2022 End: 11-04-2022 vancomycin (VANCOCIN) 2,500 mg in sodium chloride 0.9 % (NS) 500 mL IVPB vancomycin (VANCOCIN) 2000 mg in sodium chloride 0.9% 500 mL IVPB (1 source) Start: 01-18-2022 End: 01-19-2022 vancomycin (VANCOCIN) 2000 mg in sodium chloride 0.9% 500 mL IVPB zolpidem tartrate 5 mg oral tablet (20 sources) gamma-Aminobutyr ic Acid-ergic Agonist Start: 03-14-2025 End: 03-21-2025 take 10 mg by mouth once daily 10 mg, Oral, Nightly, First dose on Mon03/14/25 at 2200 Start: 09-30-2019 End: 02-13-2025 zolpidem (Ambien) 10 MG tabl et Indications: Primary insomnia Take 1 tablet (10 mg) by mouth as needed at bedtime for sleep 30 tablet 5 02/13/2025 Active Start: 05-12-2017 End: 10-12-2023 take 5 mg by mouth at bedtime as needed for sleep Zolpidem 10 mg Tablet Discontinued 5 MG PO Bedtime as needed for Sleep May 12, 2017 12:00am October 12, 2023 9:54am Start: 05-12-2017 End: 10-12-2023 take 5 mg by mouth at bedtime Zolpidem Discontinued 5 MG PO Bedtime May 11, 2017 11:00pm October 12, 2023 8:54am take 2 tablets by mo uth at bedtime as needed for sleep zolpidem 5 MG tablet Take 2 tablets by mouth At bedtime as needed for Sleep. 0 Active Problems Active Problems Problem Classification Problem Date Documented Date Episodic/Chronic Acute myocardial infarction (2 sources) Non-ST elevation (NSTEMI) myocardial infarction; Translations: [Non-ST elevation (NSTEMI) myocardial infarction] Onset: 4 Chronic Aortic; peripheral; and visceral artery aneurysms (20 sources) Thoracic aortic aneurysm, without rupture; Translations: [Abdominal aortic aneurysm] Onset: 2 04-09-2023 Chronic Asthma (20 sources) Asthmatic bronchitis; Translations: [Unspecified asthma, uncomplicated] Onset: 3 04-09-2023 Chronic Cancer of prostate (20 sources) Malignant tumor of prostate; Translations: [Malignant neoplasm of prostate] Onset: 1 07-15-2021 Chronic Cancer of prostate (9 sources) History of malignant neoplasm of prostate; Translations: [Personal history of malignant neoplasm of prostate] Onset: 3 07-04-2019 Episodic Cardiac dysrhythmias (20 sources) Paroxysmal atrial fibrillation; Translations: [Paroxysmal atrial fibrillation] Onset: 3 04-09-2023 Chronic Chronic kidney disease (20 sources) Chronic kidney disease stage 3A ; Translations: [Stage 3a chronic kidney disease (HCC)] Onset: 3 04-09-2023 Chronic Chronic obstructive pulmonary disease and bronchiectasis (20 sources) Chronic obstructive lung disease; Translations: [Chronic obstructive pulmonary disease, unspecified] Onset: 3 Resolved: 4 Chronic Chronic obstructive pulmonary disease and bronchiectasis (2 sources) Bronchitis, not specified as acute or chronic; Translations: [Bronchitis, not specified as acute or chronic] Onset: 9 Episodic Chronic ulcer of skin (12 sources) Ulcer of toe; Translations: [Ischemic ulcer of toe] Onset: 5 04-08-2025 Chronic Coagulation and hemorrhagic disorders (20 sources) Thrombophilia; Translations: [Other thrombophilia] Onset: 4 03-21-2024 Chronic Complication of device; implant or graft (20 sources) Arteriosclerosis of coronary artery bypass graft; Translations: [Atherosclerosis of coronary artery bypass graft(s) without angina pectoris] Onset: 9 09-05-2018 Chronic Complication of device; implant or graft (1 source) Joint pain; Translations: [Pain due to internal orthopedic prosthetic devices, implants and grafts, subsequent encounter] Episodic Conditions associated with dizziness or vertigo (1 source) Dizziness and giddiness; Translations: [Dizziness and giddiness] Onset: 4 Episodic Congestive heart failure; nonhypertensive (20 sources) Acute on chronic diastolic (congestive) heart failure; Translations: [Chronic heart failure co-occurrent with normal ejection fraction] Onset: 3 Chronic Coronary atherosclerosis and other heart disease (20 sources) Coronary atherosclerosis; Translations: [Atherosclerotic heart disease of [place] coronary artery without angina pectoris] Onset: 8 07-15-2021 Chronic Disorders of lipid metabolism (20 sources) Hypercholesterolemia; Translations: [Pure hypercholesterolemia, unspecified] Onset: 4 Resolved: 4 09-05-2018 Chronic Disorders of teeth and jaw (1 source) Arthralgia of bilateral temporomandibular joint; Translations: [Bilateral temporomandibular joint pain] Essential hypertension (20 sources) Essential hypertension; Translations: [Essential (primary) hypertension] Onset: 8 09-05-2018 Chronic Gangrene (14 sources) Gangrene of left foot; Translations: [Gangrene of left foot] Onset: 9 10-04-2018 Genitourinary symptoms and ill-defined conditions (9 sources) Nocturia; Translations: [Dysuria] 07-04-2019 Episodic Heart valve disorders (20 sources) Aortic valve regurgitation; Translations: [Nonrheumatic aortic (valve) insufficiency] Onset: 1 06-05-2023 Chronic Hyperplasia of prostate (9 sources) Benign prostatic hypertrophy with outflow obstruction; Translations: [Benign prostatic hyperplasia with lower urinary tract symptoms] Onset: 3 07-04-2019 Chronic Hypertension with complications and secondary hypertension (20 sources) Chronic kidney disease due to hypertension; Translations: [Hypertensive chronic kidney disease with stage 1 through stage 4 chronic kidney disease, or unspecified chronic kidney disease] Onset: 3 04-09-2023 Chronic Infective arthritis and osteomyelitis (except that caused by tuberculosis or sexually transmitted disease) (7 sources) Osteomyelitis of right foot; Translations: [Osteomyelitis, unspecified] Onset: 5 04-14-2025 Chronic Miscellaneous mental health disorders (5 sources) Primary insomnia; Translations: [Primary insomnia] 08-12-2024 Chronic Occlusion or stenosis of precerebral arteries (20 sources) Bilateral stenosis of carotid arteries; Translations: [Occlusion and stenosis of bilateral carotid arteries] Onset: 3 Chronic Occlusion or stenosis of precerebral arteries (2 sources) Bilateral carotid artery stenosis; Translations: [Bilateral carotid artery stenosis] Osteoarthritis (20 sources) Arthritis; Translations: [Unspecified osteoarthritis, unspecified site] Onset: 3 04-09-2023 Chronic Other and ill-defined heart disease (4 sources) Heart disease, unspecified; Translations: [HEART DISEASE UNSPECIFIED] Onset: 2 Chronic Other bone disease and musculoskeletal deformities (2 sources) History of amputation of foot; Translations: [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 (HCC)] Chronic Other bone disease and musculoskeletal deformities (12 sources) History of amputation of left foot; Translations: [Acquired absence of left foot] Onset: 1 07-15-2021 Chronic Other bone disease and musculoskeletal deformities (20 sources) Absence of lower limb; 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] Onset: 4 08-12-2024 Chronic Other circulatory disease (20 sources) Critical lower limb ischemia ; Translations: [Critical lower limb ischemia] Onset: 9 09-05-2018 Chronic Other circulatory disease (1 source) Other disorder of circulatory system; Translations: [Ischemic foot] Episodic Other circulatory disease (5 sources) History of arterial bypass of lower limb artery; Translations: [S/P bypass graft of extremity] Episodic Other circulatory disease (2 sources) Other specified symptoms and signs involving the circulatory and respiratory systems Episodic Other circulatory disease (1 source) Critical lower limb ischemia 03-21-2025 Episodic Other connective tissue disease (20 sources) History of total hip arthroplasty; Translations: [Presence of unspecified artificial hip joint] Onset: 1 07-15-2021 Chronic Other connective tissue disease (3 sources) History of total replacement of right hip joint; Translations: [Presence of right artificial hip joint] Chronic Other connective tissue disease (2 sources) Presence of right artificial hip joint; Translations: [Presence of right artificial hip joint] Onset: 3 Chronic Other connective tissue disease (20 sources) Polymyalgia rheumatica; Translations: [Polymyalgia rheumatica] Onset: 3 04-09-2023 Chronic Other connective tissue disease (2 sources) Pain in left foot; Translations: [Left foot pain] Episodic Other connective tissue disease (2 sources) Pain in left leg; Translations: [Pain in left leg] Onset: 9 Episodic Other connective tissue disease (2 sources) Pain in leg, unspecified; Translations: [Pain in leg, unspecified] Onset: 8 Episodic Other connective tissue disease (3 sources) Pain in right lower limb; Translations: [Pain in right leg] Episodic Other connective tissue disease (1 source) Pain in right foot; Translations: [Pain in right foot] Onset: 5 Episodic Other connective tissue disease (2 sources) Pain in right leg; Translations: [Pain in right leg] Onset: 5 Episodic Other connective tissue disease (2 sources) Posterior tibial tendinitis, right leg; Translations: [Posterior tibial tendinitis, right leg] Onset: 3 Episodic Other diseases of kidney and ureters (1 source) Urinary tract obstruction; Translations: [Other obstructive and reflux uropathy] Onset: 4 Episodic Other ear and sense organ disorders (1 source) Referred otalgia; Translations: [Referred otalgia of right ear] Episodic Other hematologic conditions (1 source) Raised cardiac enzyme or marker; Translations: [Other specified abnormalities of plasma proteins] Episodic Other lower respiratory disease (4 sources) Solitary pulmonary nodule; Translations: [Solitary pulmonary nodule] Onset: 2 Episodic Other male genital disorders (3 sources) Impotence 07-04-2019 Chronic Other male genital disorders (3 sources) Impotence of organic origin 07-03-2019 Chronic Other male genital disorders (2 sources) Male erectile dysfunction, unspecified; Translations: [Erectile dysfunction] Onset: 3 Chronic Other male genital disorders (20 sources) Secondary erectile dysfunction; Translations: [Male erectile dysfunction, unspecified] Onset: 8 04-09-2023 Chronic Other nervous system disorders (20 sources) Neuropathy; Translations: [Polyneuropathy, unspecified] Onset: 3 04-09-2023 Chronic Other nervous system disorders (20 sources) Chronic pain; Translations: [Other chronic pain] Onset: 3 04-09-2023 Chronic Other nervous system disorders (20 sources) Phantom limb syndrome with pain; Translations: [Phantom limb syndrome with pain] Onset: 3 04-09-2023 Chronic Other nervous system disorders (17 sources) 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; Translations: [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] Onset: 5 11-04-2024 Chronic Other nervous system disorders (1 source) Acute postoperative pain; Translations: [Acute post-operative pain] Episodic Other nervous system disorders (2 sources) Other acute postprocedural pain; Translations: [Other acute postprocedural pain] Onset: 9 Episodic Other nervous system disorders (1 source) Skin tenderness; Translations: [Other disturbances of skin sensation] Episodic Other nutritional; endocrine; and metabolic disorders (20 sources) Obesity; Translations: [Obesity, unspecified] Onset: 9 09-05-2018 Chronic Other nutritional; endocrine; and metabolic disorders (20 sources) Disorder of lipid metabolism; Translations: [Disorder of lipoprotein metabolism, unspecified] Onset: 4 06-05-2023 Chronic Other screening for suspected conditions (not mental disorders or infectious disease) (20 sources) Radiology result abnormal; Translations: [Abnormal findings on diagnostic imaging of other specified body structures] Onset: 3 04-09-2023 Chronic Other screening for suspected conditions (not mental disorders or infectious disease) (4 sources) Elevated C-reactive protein; Translations: [Elevated C-reactive protein (CRP)] Episodic Other skin disorders (1 source) Actinic keratosis; Translations: [Actinic keratosis] Episodic Other skin disorders (1 source) Seborrheic keratosis; Translations: [Other seborrheic keratosis] Episodic Other skin disorders (1 source) Inflamed seborrheic keratosis; Translations: [Inflamed seborrheic keratosis] Episodic Other skin disorders (1 source) Asteatosis cutis; Translations: [Xerosis cutis] Episodic Other upper respiratory disease (20 sources) Seasonal allergic rhinitis; Translations: [Other seasonal allergic rhinitis] Onset: 3 04-09-2023 Chronic Other upper respiratory disease (6 sources) Allergic rhinitis due to pollen; Translations: [Allergic rhinitis due to pollen] 08-12-2024 Chronic Other upper respiratory infections (1 source) Upper respiratory infection; Translations: [Acute upper respiratory infection, unspecified] 06-17-2024 Episodic Peripheral and visceral atherosclerosis (20 sources) Peripheral vascular disease; Translations: [Atherosclerosis of [place] arteries of the extremities] Onset: 8 Resolved: 2 Chronic Peripheral and visceral atherosclerosis (1 source) 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; Translations: [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)] Pulmonary heart disease (20 sources) Pulmonary hypertension; Translations: [Pulmonary hypertension, unspecified] Onset: 4 04-26-2024 Chronic Residual codes; unclassified (4 sources) Other specified postprocedural states Onset: 2 Resolved: 2 Episodic Residual codes; unclassified (1 source) Peripheral edema; Translations: [Edema, unspecified] Episodic Spondylosis; intervertebral disc disorders; other back problems (20 sources) Lumbosacral spondylosis without myelopathy; Translations: [Spondylosis without myelopathy or radiculopathy, lumbosacral region] Onset: 3 01-19-2023 Chronic Unclassified (2 sources) Unknown / UNK(Unknown) Onset: 7 Unclassified (3 sources) Asymptomatic microscopic hematuria 10-05-2021 Unclassified (3 sources) Drug therapy finding 07-04-2019 Unclassified (1 source) Aneurysm of the ascending aorta, without rupture; Translations: [Aneurysm of the ascending aorta, without rupture] Onset: 3 Unclassified (2 sources) call to schedule follow up with Dr. Beaver Unclassified (3 sources) Peripheral artery disease 03-21-2025 Unclassified (1 source) Hematoma of arm, left, initial encounter 03-21-2025 Past or Other Problems Problem Classification Problem Date Documented Da te Episodic/Chronic Abdominal pain (20 sources) Abdominal pain; Translations: [Unspecified abdominal pain] Onset: 07-11-2014 Resolved: 04-26-2024 04-26-2024 Episodic Administrative/social admission (2 sources) Patient encounter status; Translations: [Other specified counseling] 04-26-2024 Episodic Cataract (20 sources) Cataract; Translations: [Unspecified cataract] Onset: 04-09-2023 Resolved: 04-26-2024 04-26-2024 Chronic Complications of surgical procedures or medical care (20 sources) Late amputation stump complication; Translations: [Other complications of amputation stump] Onset: 07-22-2024 08-12-2024 Episodic Coronary atherosclerosis and other heart disease (2 sources) Presence of aortocoronary bypass graft; Translations: [Presence of aortocoronary bypass graft] Onset: 06-11-2024 Episodic Gangrene (20 sources) Gangrenous disorder; Translations: [Gangrene, not elsewhere classified] Onset: 10-04-2018 Resolved: 04-26-2024 10-04-2018 Episodic Immunizations and screening for infectious disease (20 sources) Needs influenza immunization; Translations: [Encounter for immunization] Onset: 06-06-2023 Resolved: 04-26-2024 04-26-2024 Episodic Mood disorders (20 sources) Mood disorders Onset: 04-26-2024 Resolved: 03-15-2025 04-26-2024 Nausea and vomiting (20 sources) Nausea; Translations: [Nausea] Onset: 06-06-2023 Resolved: 04-26-2024 04-26-2024 Episodic Nonspecific chest pain (20 sources) Other chest pain; Translations: [Chest pain, unspecified] Onset: 08-30-2013 Resolved: 04-26-2024 05-16-2024 Episodic Other bone disease and musculoskeletal deformities (20 sources) Avascular necrosis of bone of hip; 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] Onset: 09-04-2011 Resolved: 04-26-2024 04-26-2024 Chronic Other connective tissue disease (20 sources) Pain in left lower limb; Translations: [Pain in left leg] Onset: 09-04-2011 Resolved: 04-26-2024 09-06-2018 Episodic Other connective tissue disease (2 sources) Contracture of tendo achilles; Translations: [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, left] Episodic Other connective tissue disease (20 sources) Tendinitis of right posterior tibial tendon; Translations: [Posterior tibial tendinitis, right leg] Onset: 11-07-2022 11-30-2022 Episodic Other connective tissue disease (9 sources) Pain in lower limb; Translations: [Pain in right leg] Onset: 09-06-2018 03-14-2025 Episodic Other gastrointestinal disorders (20 sources) Slow transit constipation; Translations: [Slow transit constipation] Onset: 04-09-2023 04-09-2023 Episodic Other gastrointestinal disorders (20 sources) Heartburn; Translations: [Heartburn] Onset: 09-10-2013 06-05-2023 Episodic Other gastrointestinal disorders (20 sources) Constipation; Translations: [Constipation, unspecified] Onset: 04-09-2023 Resolved: 04-26-2024 04-26-2024 Episodic Other hematologic conditions (20 sources) ESR raised; Translations: [Elevated erythrocyte sedimentation rate] Onset: 04-09-2023 04-09-2023 Episodic Other injuries and conditions due to external causes (20 sources) Contusion; Translations: [Other injury of unspecified body region, initial encounter] Onset: 07-15-2014 Resolved: 04-26-2024 04-26-2024 Episodic Other lower respiratory disease (20 sources) Nodule of lung; Translations: [Solitary pulmonary nodule] Onset: 01-21-2022 Episodic Other lower respiratory disease (20 sources) Solitary nodule of lung; Translations: [Solitary pulmonary nodule] Onset: 04-09-2023 04-09-2023 Episodic Other lower respiratory disease (20 sources) Dyspnea; Translations: [Dyspnea, unspecified] Onset: 08-30-2013 06-05-2023 Episodic Other lower respiratory disease (20 sources) Orthopnea; Translations: [Orthopnea] Onset: 03-31-2016 06-05-2023 Episodic Other lower respiratory disease (20 sources) Snoring; Translations: [Snoring] Onset: 11-21-2022 06-05-2023 Episodic Other lower respiratory disease (2 sources) Dyspnea on exertion; Translations: [Other forms of dyspnea] 04-26-2024 Episodic Other nervous system disorders (20 sources) Paresthesia; Translations: [Paresthesia of skin] Onset: 04-09-2023 04-09-2023 Episodic Other non-traumatic joint disorders (8 sources) Hip pain; Translations: [Pain in unspecified hip] Onset: 09-04-2011 Resolved: 09-04-2011 Episodic Other nutritional; endocrine; and metabolic disorders (20 sources) Obese class I; Translations: [Obesity, unspecified] Onset: 08-10-2018 Resolved: 04-26-2024 07-15-2021 Chronic Other upper respiratory infections (20 sources) Sinusitis; Translations: [Chronic sinusitis, unspecified] Onset: 04-09-2023 Resolved: 04-26-2024 04-26-2024 Chronic Pneumonia (except that caused by tuberculosis or sexually transmitted disease) (20 sources) Pneumonia, unspecified organism; Translations: [Community acquired pneumonia] Onset: 03-05-2023 Resolved: 04-26-2024 Episodic Residual codes; unclassified (2 sources) Edema of lower extremity; Translations: [Lower extremity edema] Episodic Residual codes; unclassified (20 sources) Insomnia; Translations: [Insomnia, unspecified] Onset: 01-19-2023 01-19-2023 Episodic Skin and subcutaneous tissue infections (20 sources) Cellulitis of left lower limb; Translations: [Cellulitis of left lower limb] Onset: 01-18-2022 Resolved: 04-26-2024 Episodic Spondylosis; intervertebral disc disorders; other back problems (20 sources) Sciatica; Translations: [Sciatica, left side] Onset: 04-09-2023 04-09-2023 Episodic Superficial injury; contusion (20 sources) Contusion of upper limb; Translations: [Contusion of left upper arm, initial encounter] Onset: 11-04-2022 Resolved: 04-26-2024 Episodic Unclassified (1 source) Aneurysm of the ascending aorta, without rupture; Translations: [Aneurysm of the ascending aorta, without rupture] Onset: 12-18-2024 Urinary tract infections (20 sources) Acute cystitis; Translations: [Acute cystitis without hematuria] Onset: 03-21-2024 Resolved: 04-26-2024 04-26-2024 Episodic Viral infection (20 sources) Herpes zoster; Translations: [Zoster without complications] Onset: 09-04-2011 Resolved: 04-26-2024 04-26-2024 Episodic Results Test Name Value Interpretation Reference Range Facility ALL CBC WITH AUTO DIFFon BASOPHILS ABSOLUTE AUTO 0 [facility] Basophils/100 WBC (Bld) 0.6 % 0.2 - 2.0 % [facility] Eosinophils/100 WBC (Bld) 5.9 % 0.9 - 7.0 % [facility] Erythrocyte distribution width (RBC) [Ratio] 15.2 % High 11.0 - 15.0 % [facility] Hematocrit (Bld) [Volume fraction] 35.1 % Low 42.0 - 54.0 % [facility] Hemoglobin (Bld) [Mass/Vol] 11.8 g/dL Low 14.0 - 18.0 g/dL [facility] IMMATURE GRANULOCYTES ABS AUTO 0.02 [facility] Immature granulocytes/100 WBC (Bld) 0.6 % High 0.0 - 0.5 % [facility] Interpretation and review of laboratory results Abnormal [facility] LYMPHOCYTES ABSOLUTE AUTO 0.8 Low [facility] Lymphocytes/100 WBC (Bld) 24.1 % 20.5 - 60.0 % [facility] MCH (RBC) [Entitic mass] 31.2 pg 25.9 - 34.0 pg [facility] MCHC (RBC) [Mass/Vol] 33.6 g/dL 29.9 - 35.2 g/dL [facility] MCV (RBC) [Entitic vol] 92.9 fL 80.0 - 94.0 fL [facility] MONOCYTES ABSOLUTE AUTO 0.6 [facility] Monocytes/100 WBC (Bld) 18.9 % High 1.7 - 12.0 % [facility] NEUTROPHILS ABSOLUTE AUTO 1.6 [facility] Neutrophils/100 WBC (Bld) 49.9 % 43.0 - 75.0 % [facility] Platelet mean volume (Bld) [Entitic vol] 8.9 fL Low 9.5 - 13.5 fL [facility] TBH EO # 0.2 [facility]H PLT 158 [facility] RBC 3.78 Low [facility] WBC 3.2 Low [facility] MR FOOT RIGHT WO IV CONTRAST on 04-15-2025 MR FOOT RIGHT WO IV CONTRAST EXAM: MR FOOT RIGHT WO IV CONTRAST [...] the great toe measures approximately 1.4 cm. 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 Bone marrow edema of the proximal phalanx of the great toe may be reactive/degenerative however early osteomyelitis is not excluded. ELECTRONICALLY SIGNED BY: Dom Ruiz, DO Normal Not Available HERPES SIMPLEX VIRUS 1on HERPES SIMPLEX VIRUS 1 0 NO [facility] HERPES SIMPLEX VIRUS 1 Not detected [facility] HERPES SIMPLEX VIRUS 2 0 NO [facility] HERPES SIMPLEX VIRUS 2 Not detected [facility] HUMAN MONKEYPOX VIRUS 0 [facility] HUMAN MONKEYPOX VIRUS Not detected [facility] VARICELLA ZOSTER VIRUS (HUMAN HERPESVIRUS 3) 0 [facility] VARICELLA ZOSTER VIRUS (HUMAN HERPESVIRUS 3) Not detected [facility] BASIC METABOLIC PANELon 07-2 Anion gap [Moles/Vol] 14 mmol/L Normal 10-20 [facility] Comment on above: Order Comment: [facility] has implemented the eGFR calculation approach that does not have a coefficient for race that conforms to the NKF-ASN Task Force Recommendations. Performed By: #### [id number] #### [facility] [address] [place], [place] [id number] Emmanuel Plata M.D. [id number] Calcium [Mass/Vol] 9.4 mg/dL Normal 8.4-10.2 [facility] Comment on above: Order Comment: [facility] has implemented the eGFR calculation approach that does not have a coefficient for race that conforms to the NKF-ASN Task Force Recommendations. Performed By: #### [id number] #### [facility] [address] [place], [place] [id number] Emmanuel Plata M.D. [id number] Chloride [Moles/Vol] 108 mmol/L Normal 98-108 [facility] Comment on above: Order Comment: [facility] has implemented the eGFR calculation approach that does not have a coefficient for race that conforms to the NKF-ASN Task Force Recommendations. Performed By: #### [id number] #### [facility] [address] [place] [address] Emmanuel Plata M.D. [id number] Creatinine [Mass/Vol] 0.98 mg/dL Normal 0.80-1.30 [facility] Comment on above: Order Comment: [facility] has implemented the eGFR calculation approach that does not have a coefficient for race that conforms to the NKF-ASN Task Force Recommendations. Performed By: #### [id number] #### [facility] [address] [place] [address] Emmanuel Plata M.D. [id number] EGFR 75 mL/min/1.73 m2 Normal >=60 [facility] Comment on above: Order Comment: [facility] has implemented the eGFR calculation approach that does not have a coefficient for race that conforms to the NKF-ASN Task Force Recommendations. Result Comment: [place] mated GFR was calculated using the 2020 CKD-EPI creatinine equation. Performed By: #### [id number] #### [facility] [address] [place] [address] Emmanuel Plata M.D. [id number] Glucose [Mass/Vol] 109 mg/dL High 65-99 [facility] Comment on above: Order Comment: [facility] has implemented the eGFR calculation approach that does not have a coefficient for race that conforms to the NKF-ASN Task Force Recommendations. Performed By: #### [id number] #### [facility] [address] [place] [id number] Emmanuel Plata M.D. [id number] HCO3 (Bld) [Moles/Vol] 22 mmol/L Normal 21-32 [facility] Comment on above: Order Comment: [facility] has implemented the eGFR calculation approach that does not have a coefficient for race that conforms to the NKF-ASN Task Force Recommendations. Performed By: #### [id number] #### [facility] [address] [place] [address] Emmanuel Plata M.D. [id number] Potassium [Moles/Vol] 4.0 mmol/L Normal 3.5-5.1 [facility] Comment on above: Order Comment: [facility] has implemented the eGFR calculation approach that does not have a coefficient for race that conforms to the NKF-ASN Task Force Recommendations. Result Comment: Slig htly Hemolyzed Performed By: #### [id number] #### [facility] [address] [place] [address] Emmanuel Plata M.D. [id number] Sodium [Moles/Vol] 140 mmol/L Normal 135-145 [facility] Comment on above: Order Comment: [facility] has implemented the eGFR calculation approach that does not have a coefficient for race that conforms to the NKF-ASN Task Force Recommendations. Performed By: #### [id number] #### [facility] [address] [place] [address] Emmanuel Plata M.D. [id number] Urea nitrogen [Mass/Vol] 19 mg/dL Normal 8-25 [facility] Comment on above: Order Comment: [facility] has implemented the eGFR calculation approach that does not have a coefficient for race that conforms to the NKF-ASN Task Force Recommendations. Performed By: #### [id number] #### [facility] [address] [place] [address] Emmanuel Plata M.D. [id number] Urea nitrogen/Creatinine [Mass ratio] 19.4 mg/mg Normal 10.0-20.0 [facility] Comment on above: Order Comment: [facility] has implemented the eGFR calculation approach that does not have a coefficient for race that conforms to the NKF-ASN Task Force Recommendations. Performed By: #### [id number] #### [facility] [address] [place] [address] Emmanuel Plata M.D. [id number] Basic metabolic 2000 panelOr dered By: Beka Aiken on 03-21-2025 Anion gap [Moles/Vol] 14 mmol/L 10 - 2 0 mmol/L [facility] Calcium [Mass/Vol] 9.4 mg/dL 8.4 - 10. 2 mg/dL [facility] Chloride [Moles/Vol] 108 mmol/L 98 - 10 8 mmol/L [facility] Creatinine [Mass/Vol] 0.98 mg/dL 0.80 - 1.30 mg/dL [facility] GFR/1.73 sq M.predicted CKD-EPI (S/P/Bld) [Vol rate/Area] 75 - PINF [facility] Comment on above: Estimated GFR was ca lculated using the 2020 CKD-EPI creatinine equation. Glucose [Mass/Vol] 109 mg/dL High 65 - 99 mg/dL [facility] HCO3 [Moles/Vol] 22 mmol/L 21 - 32 mmol/L [facility] Interpretation and review of laboratory results Abnormal [facility] Potassium [Moles/Vol] 4 mmol/L 3.5 - 5.1 mmol/L [facility] Comment on above: Slightly Hemolyzed Sodium [Moles/Vol] 140 mmol/L 135 - 145 mmol/L [facility] Urea nitrogen [Mass/Vol] 19 mg/dL 8 - 25 mg/dL [facility] Urea nitrogen/Creatinine [Mass ratio] 19.4 mg/mg 10.0 - 20.0 [facility] has implemented the eGFR calculation approach that does not have a coefficient for race that conforms to the NKF-ASN Task Force Recommendations. [facility] CBCon 03-21-2025 AUTO NRBC 0.0 % Normal [facility] Comment on above: Performed By: #### [id number] #### [facility] [address] [place], [place] [id number] Emmanuel Plata M.D. [id number] AUTO NRBC ABS COUNT 0.00 K/mcL Normal 0.00-0.00 [facility] Comment on above: Performed By: #### [id number] #### [facility] [address] [place], [place] [address] Emmanuel Plata M.D. [id number] Erythrocyte distribution width (RBC) [Ratio] 13.7 % Normal 11.6-14.8 [facility] Comment on above: Performed By: #### [id number] #### [facility] [address] [place] [address] Emmanuel Plata M.D. [id number] Hematocrit (Bld) [Volume fraction] 30.0 % Low 41.0-53.0 [facility] Comment on above: Performed By: #### [id number] #### [facility] [address] [place], [place] [address] Emmanuel Plata M.D. [id number] Hemoglobin (Bld) [Mass/Vol] 10.5 g/dL Low 13.5-17.5 [facility] Comment on above: Performed By: #### [id number] #### [facility] [address] [place] [address] Emmanuel Plata M.D. [id number] MCH (RBC) [Entitic mass] 33.2 pg Normal 26.0-34.0 [facility] Comment on above: Performed By: #### [id number] #### [facility] [address] [place] [address] Emmanuel Plata M.D. [id number] MCV (RBC) [Entitic vol] 94.9 fL Normal 80.0-100.0 [facility] Comment on above: Performed By: #### [id number] #### [facility] [address] [place], [place] [address] Emmanuel Plata M.D. [id number] MEAN CORPUSCULAR HEMOGLOBIN CONC 35.0 g/dL Normal 31.0-37.0 [facility] Comment on above: Performed By: #### [id number] #### [facility] [address] [place], [place] [address] Emmanuel Plata M.D. [id number] Platelet mean volume (Bld) [Entitic vol] 9.7 fL Normal 9.4-12.4 [facility] Comment on above: Performed By: #### [id number] #### [facility] [address] [place], [place] [address] Emmanuel Plata M.D. [id number] Platelets (Bld) [#/Vol] 213 10*3/uL Normal 150-400 [facility] Comment on above: Performed By: #### [id number] #### [facility] [address] [place] [address] Emmanuel Plata M.D. [id number] RBC (Bld) [#/Vol] 3.16 10*6/uL Low 4.50-5.90 [facility] Comment on above: Performed By: #### [id number] #### [facility] [address] [place] [address] Emmanuel Plata M.D. [id number] WBC (Bld) [#/Vol] 4.33 10*3/uL Low 4.50-11.00 [facility] Comment on above: Performed By: #### [id number] #### [facility] [address] [place] [address] Emmanuel Plata M.D. [id number] CBC panel Auto (Bld)on 03-21 Erythrocyte distribution width (RBC) [Entitic vol] 13.7 % 11.6 - 14.8 % [facility] Hematocrit (Bld) [Volume fraction] 30 % Low 41.0 - 53.0 % [facility] Hemoglobin (Bld) [Mass/Vol] 10.5 g/dL Low 13.5 - 17.5 g/dL [facility] Interpretation and review of laboratory results Abnormal [facility] MCH (RBC) [Entitic mass] 33.2 pg 26.0 - 34.0 pg [facility] MCHC (RBC) [Mass/Vol] 35 g/dL 31.0 - 37.0 g/dL [facility] MCV (RBC) [Entitic vol] 94.9 fL 80.0 - 100.0 fL [facility] Nucleated RBC (Bld) [#/Vol] 0 10*3/uL [facility] Nucleated RBC/100 WBC (Bld) [Ratio] 0 % [facility] Platelet mean volume (Bld) [Entitic vol] 9.7 fL 9.4 - 12.4 fL [facility] Platelets (Bld) [#/Vol] 213 10*3/uL [facility] RBC (Bld) [#/Vol] 3.16 10*6/uL Low [facility] WBC (Bld) [#/Vol] 4.33 10*3/uL Low [facility] MAGNESIUM LEVELon 03-21-2025 Magnesium [Mass/Vol] 2.1 mg/dL Normal 1.6-2.4 [facility] Comment on above: Performed By: #### [id number] #### [facility] [address] [place] [address] Emmanuel Plata M.D. [id number] Magnesiumon 03-21-2025 Magnesium [Mass/Vol] 2.1 mg/dL 1.6 - 2 .4 mg/dL [facility] Magnesium [Mass/Vol]on 03-21 Interpretation and review of laboratory results Normal [facility] No Panel Informationon 03-21 [facility] Center BASIC METABOLIC PANELon 02-26 Anion gap [Moles/Vol] 14 mmol/L Normal 10-20 [facility] Comment on above: Order Comment: [facility] has implemented the eGFR calculation approach that does not have a coefficient for race that conforms to the NKF-ASN Task Force Recommendations. Performed By: #### 4 [id number] #### [facility] [address] [place] [address] 89675 Emmanuel Plata M.D. [id number] Calcium [Mass/Vol] 8.5 mg/dL Normal 8.4-10.2 [facility] Comment on above: Order Comment: [facility] has implemented the eGFR calculation approach that does not have a coefficient for race that conforms to the NKF-ASN Task Force Recommendations. Performed By: #### 4 [id number] #### [facility] [address] [place] [address] 95147 Emmanuel Plata M.D. [id number] Chloride [Moles/Vol] 107 mmol/L Normal 98-108 [facility] Comment on above: Order Comment: [facility] has implemented the eGFR calculation approach that does not have a coefficient for race that conforms to the NKF-ASN Task Force Recommendations. Performed By: #### 4 [id number] #### [facility] [address] [place] [address] 59716 Emmanuel Plata M.D. [id number] Creatinine [Mass/Vol] 0.97 mg/dL Normal 0.80-1.30 [facility] Comment on above: Order Comment: [facility] has implemented the eGFR calculation approach that does not have a coefficient for race that conforms to the NKF-ASN Task Force Recommendations. Performed By: #### 4 [id number] #### [facility] [address] [place] [address] 77373 Emmanuel Plata M.D. [id number] EGFR 76 mL/min/1.73 m2 Normal >=60 [facility] Comment on above: Order Comment: [facility] has implemented the eGFR calculation approach that does not have a coefficient for race that conforms to the NKF-ASN Task Force Recommendations. Result Comment: Maria Del Carmen mated GFR was calculated using the 2020 CKD-EPI creatinine equation. Performed By: #### 4 [id number] #### [facility] [address] [place] [address] 13910 Emmanuel Plata M.D. [id number] Glucose [Mass/Vol] 97 mg/dL Normal 65-99 [facility] Comment on above: Order Comment: [facility] has implemented the eGFR calculation approach that does not have a coefficient for race that conforms to the NKF-ASN Task Force Recommendations. Performed By: #### 4 [id number] #### [facility] [address] [place] [address] 82784 Emmanuel Plata M.D. [id number] HCO3 (Bld) [Moles/Vol] 22 mmol/L Normal 21-32 [facility] Comment on above: Order Comment: [facility] has implemented the eGFR calculation approach that does not have a coefficient for race that conforms to the NKF-ASN Task Force Recommendations. Performed By: #### 4 [id number] #### [facility] [address] [place] [address] 38162 Emmanuel Plata M.D. [id number] Potassium [Moles/Vol] 4.1 mmol/L Normal 3.5-5.1 [facility] Comment on above: Order Comment: [facility] has implemented the eGFR calculation approach that does not have a coefficient for race that conforms to the NKF-ASN Task Force Recommendations. Performed By: #### 4 [id number] #### [facility] [address] [place], [place] [address] Emmanuel Plata M.D. [id number] Sodium [Moles/Vol] 139 mmol/L Normal 135-145 [facility] Comment on above: Order Comment: [facility] has implemented the eGFR calculation approach that does not have a coefficient for race that conforms to the NKF-ASN Task Force Recommendations. Performed By: #### 4 [id number] #### [facility] [address] [place], [place] [address] Emmanuel Plata M.D. [id number] Urea nitrogen [Mass/Vol] 20 mg/dL Normal 8-25 [facility] Comment on above: Order Comment: [facility] has implemented the eGFR calculation approach that does not have a coefficient for race that conforms to the NKF-ASN Task Force Recommendations. Performed By: #### 4 [id number] #### [facility] [address] [place] [address] 50448 Emmanuel Plata M.D. [id number] Urea nitrogen/Creatinine [Mass ratio] 20.6 mg/mg High 10.0-20.0 [facility] Comment on above: Order Comment: [facility] has implemented the eGFR calculation approach that does not have a coefficient for race that conforms to the NKF-ASN Task Force Recommendations. Performed By: #### 4 [id number] #### [facility] [address] [place] [address] 59320 Emmanuel Plata M.D. [id number] Basic metabolic 2000 panelon 03-20-2025 Anion gap [Moles/Vol] 14 mmol/L 10 - 2 0 mmol/L [facility] Calcium [Mass/Vol] 8.5 mg/dL 8.4 - 10. 2 mg/dL [facility] Chloride [Moles/Vol] 107 mmol/L 98 - 10 8 mmol/L [facility] Creatinine [Mass/Vol] 0.97 mg/dL 0.80 - 1.30 mg/dL [facility] GFR/1.73 sq M.predicted CKD-EPI (S/P/Bld) [Vol rate/Area] 76 - PINF [facility] Comment on above: Estimated GFR was ca lculated using the 2020 CKD-EPI creatinine equation. Glucose [Mass/Vol] 97 mg/dL 65 - 99 mg/dL [facility] HCO3 [Moles/Vol] 22 mmol/L 21 - 32 mmol/L [facility] Interpretation and review of laboratory results Abnormal [facility] Potassium [Moles/Vol] 4.1 mmol/L 3.5 - 5.1 mmol/L [facility] Sodium [Moles/Vol] 139 mmol/L 135 - 145 mmol/L [facility] Urea nitrogen [Mass/Vol] 20 mg/dL 8 - 25 mg/dL [facility] Urea nitrogen/Creatinine [Mass ratio] 20.6 mg/mg High 10.0 - 20.0 [facility] has implemented the eGFR calculation approach that does not have a coefficient for race that conforms to the NKF-ASN Task Force Recommendations. [facility] CBCon 03-20-2025 AUTO NRBC 0.0 % Normal [facility] Comment on above: Performed By: #### 4 [id number] #### [facility] [address] [place], [place] [address] Emmanuel Plata M.D. [id number] AUTO NRBC ABS COUNT 0.00 K/mcL Normal 0.00-0.00 [facility] Comment on above: Performed By: #### 4 [id number] #### [facility] [address] [place], [place] [address] Emmanuel Plata M.D. [id number] Erythrocyte distribution width (RBC) [Ratio] 13.8 % Normal 11.6-14.8 [facility] Comment on above: Performed By: #### 4 [id number] #### [facility] [address] [place], [place] [address] Emmanuel Plata M.D. [id number] Hematocrit (Bld) [Volume fraction] 29.1 % Low 41.0-53.0 [facility] Comment on above: Performed By: #### 4 [id number] #### [facility] [address] [place] [address] Emmanuel Plata M.D. [id number] Hemoglobin (Bld) [Mass/Vol] 10.0 g/dL Low 13.5-17.5 [facility] Comment on above: Performed By: #### 4 [id number] #### [facility] [address] [place] [address] Emmanuel Plata M.D. [id number] MCH (RBC) [Entitic mass] 33.3 pg Normal 26.0-34.0 [facility] Comment on above: Performed By: #### 4 [id number] #### [facility] [address] [place] [address] Emmanuel Plata M.D. [id number] MCV (RBC) [Entitic vol] 97.0 fL Normal 80.0-100.0 [facility] Comment on above: Performed By: #### 4 [id number] #### [facility] [address] [place] [address] Emmanuel Plata M.D. [id number] MEAN CORPUSCULAR HEMOGLOBIN CONC 34.4 g/dL Normal 31.0-37.0 [facility] Comment on above: Performed By: #### 4 [id number] #### [facility] [address] [place], [place] [address] Emmanuel Plata M.D. [id number] Platelet mean volume (Bld) [Entitic vol] 9.8 fL Normal 9.4-12.4 [facility] Comment on above: Performed By: #### 4 [id number] #### [facility] [address] [place] [address] 59617 Emmanuel Plata M.D. [id number] Platelets (Bld) [#/Vol] 167 10*3/uL Normal 150-400 [facility] Comment on above: Performed By: #### 4 [id number] #### [facility] [address] [place] [address] 20314 Emmanuel Plata M.D. [id number] RBC (Bld) [#/Vol] 3.00 10*6/uL Low 4.50-5.90 [facility] Comment on above: Performed By: #### 4 [id number] #### [facility] [address] [place] [address] 43178 Emmanuel Plata M.D. [id number] WBC (Bld) [#/Vol] 4.86 10*3/uL Normal 4.50-11.00 [facility] Comment on above: Performed By: #### 4 [id number] #### [facility] [address] [place] [address] 85042 Emmanuel Plata M.D. [id number] CBC panel Auto (Bld)on 03-20 Erythrocyte distribution width (RBC) [Entitic vol] 13.8 % 11.6 - 14.8 % [facility] Hematocrit (Bld) [Volume fraction] 29.1 % Low 41.0 - 53.0 % [facility] Hemoglobin (Bld) [Mass/Vol] 10 g/dL Low 13.5 - 17.5 g/dL [facility] Interpretation and review of laboratory results Abnormal [facility] MCH (RBC) [Entitic mass] 33.3 pg 26.0 - 34.0 pg [facility] MCHC (RBC) [Mass/Vol] 34.4 g/dL 31.0 - 37.0 g/dL [facility] MCV (RBC) [Entitic vol] 97 fL 80.0 - 100.0 fL [facility] Nucleated RBC (Bld) [#/Vol] 0 10*3/uL [facility] Nucleated RBC/100 WBC (Bld) [Ratio] 0 % [facility] Platelet mean volume (Bld) [Entitic vol] 9.8 fL 9.4 - 12.4 fL [facility] Platelets (Bld) [#/Vol] 167 10*3/uL [facility] RBC (Bld) [#/Vol] 3 10*6/uL [facility] lth WBC (Bld) [#/Vol] 4.86 10*3/uL [facility] ealth [facility] MAGNESIUM LEVELon 03-20-2025 Magnesium [Mass/Vol] 2.2 mg/dL Normal 1.6-2.4 [facility] Comment on above: Performed By: #### 4 5113 #### [facility] [address] [place] [address] Emmanuel Plata M.D. [id number] Magnesiumon 03-20-2025 Magnesium [Mass/Vol] 2.2 mg/dL 1.6 - 2 .4 mg/dL [facility] Magnesium [Mass/Vol]on 03-20 Interpretation and review of laboratory results Normal [facility] No Panel Informationon 03-20 [facility] US ANKLE/BRACHIAL INDICES EX TREMITY LIMITEDon 03-20-2025 US ANKLE/BRACHIAL INDICES EXTREMITY LIMITED Patient Info Name: Tristin Powell Age: 85 years : 1940 Gender: Male Exam Date: 03/20/2025 8:42 AM Patient Status: INPATIENT Site Location: [facility] Indications I73.9 - Peripheral vascular disease, unspecified Procedure Description 82493 Limited bilateral noninvasive physiologic studies of upper or lower extremity arteries with bidirectional Doppler/PVR waveform analysis at 1-2 levels. Slinger Sequins: Maggy Dempsey T Staff Ordering Physician: Beena Barraza Conclusions * Right and left ankle brachial [...] Segmental BP RIGHT Brachial A mmH RIGHT CMO & PRESIDENT mmH RIGHT CMO & PRESIDENT Index: 0.53 RIGHT DPA mmH RIGHT DPA Index: 0.57 RIGHT Digit mmH RIGHT YAMILE Index: 0.57 RIGHT TBI Index: 0.00 LEFT CMO & PRESIDENT Index: 0.36 LEFT CMO & PRESIDENT mmH LEFT DPA Index: 0.41 LEFT DPA mmH LEFT YAMILE Index: 0.41 Doppler RIGHT CMO & PRESIDENT Waveform: Monophasic RIGHT DPA Waveform: Monophasic LEFT CMO & PRESIDENT Waveform: Monophasic LEFT DPA Waveform: Monophasic , PVR RIGHT Ankle Grade: Abnormal RIGHT Transmetarsal Grade: Abnormal RIGHT Digit (PPG) Grade: Absent LEFT Ankle Grade: Abnormal Prior Interventions 03/17/2025 right femoral and tibial bypass graft-. 03/17/2025 right femoral and tibial Report Signatures Finalized by Sylvia Meyer MD, RPVI, FSIR on 03/20/2025 09:40 AM [facility] [place] ANKLE/BRACHIAL INDICES EXTREMITY LIMITED Patient Info Name: Tristin Powell Age: 85 years : 1940 Gender: Male Exam Date: 03/20/2025 8:42 AM Patient Status: INPATIENT Site Location: [facility] Indications I73.9 - Peripheral vascular disease, unspecified Procedure Description 41436 Limited bilateral noninvasive physiologic studies of upper or lower extremity arteries with bidirectional Doppler/PVR waveform analysis at 1-2 levels. [place]linger Sequins: Maggy Dempsey T Staff Ordering Physician: Beena Barraza Conclusions * Right and left ankle brachial [...] Segmental BP RIGHT Brachial A mmH RIGHT CMO & PRESIDENT mmH RIGHT CMO & PRESIDENT Index: 0.53 RIGHT DPA mmH RIGHT DPA Index: 0.57 RIGHT Digit mmH RIGHT YAMILE Index: 0.57 RIGHT TBI Index: 0.00 LEFT CMO & PRESIDENT Index: 0.36 LEFT CMO & PRESIDENT mmH LEFT DPA Index: 0.41 LEFT DPA mmH LEFT YAMILE Index: 0.41 Doppler RIGHT CMO & PRESIDENT Waveform: Monophasic RIGHT DPA Waveform: Monophasic LEFT CMO & PRESIDENT Waveform: Monophasic LEFT DPA Waveform: Monophasic , PVR RIGHT Ankle Grade: Abnormal RIGHT Transmetarsal Grade: Abnormal RIGHT Digit (PPG) Grade: Absent LEFT Ankle Grade: Abnormal Prior Interventions 03/17/2025 right femoral and tibial bypass graft-. 03/17/2025 right femoral and tibial Report Signatures Finalized by Sylvia Meyer MD, RPVI, FSIR on 03/20/2025 09:40 AM Dictated by: Sylvia MEYER on MonMar 20, 2025 9:40:58 AM EDT Transcribed by: Sylvia MEYER on MonMar 20, 2025 9:40:58 AM EDT Finalized by: Sylvia MEYER on MonMar 20, 2025 9:40:[address] [facility] US Doppler ankle/brachial in dexon 03-20-2025 Patient Info Name: Tristin Powell Age: 85 years : 1940 Gender: Male Exam Date: 03/20/2025 8:42 AM Patient Status: INPATIENT Site Location: [facility] Indications I73.9 - Peripheral vascular disease, unspecified Procedure Description 85456 Limited bilateral noninvasive physiologic studies of upper or lower extremity arteries with bidirectional Doppler/PVR waveform analysis at 1-2 levels. [place]linger Sequins: Maggy Dempsey [facility] Staff Ordering Physician: Beena Barraza Conclusions * Right and left ankle brachial [...] Segmental BP RIGHT Brachial A mmH RIGHT CMO & PRESIDENT mmH RIGHT CMO & PRESIDENT Index: 0.53 RIGHT DPA mmH RIGHT DPA Index: 0.57 RIGHT Digit mmH RIGHT YAMILE Index: 0.57 RIGHT TBI Index: 0.00 LEFT CMO & PRESIDENT Index: 0.36 LEFT CMO & PRESIDENT mmH LEFT DPA Index: 0.41 LEFT DPA mmH LEFT YAMILE Index: 0.41 Doppler RIGHT CMO & PRESIDENT Waveform: Monophasic RIGHT DPA Waveform: Monophasic LEFT CMO & PRESIDENT Waveform: Monophasic LEFT DPA Waveform: Monophasic , PVR RIGHT Ankle Grade: Abnormal RIGHT Transmetarsal Grade: Abnormal RIGHT Digit (PPG) Grade: Absent LEFT Ankle Grade: Abnormal Prior Interventions 03/17/2025 right femoral and tibial bypass graft-. 03/17/2025 right femoral and tibial Report Signatures Finalized by Sylvia Meyer MD, RPVI, FSIR on 03/20/2025 09:40 AM FUJI SYNAPSE CV Sylvia Meyer MD - 03/20/2025 Patient Info Name: Tristin Powell Age: 85 years : 1940 Gender: Male Exam Date: 03/20/2025 8:42 AM Patient Status: INPATIENT Site Location: [facility] Indications I73.9 - Peripheral vascular disease, unspecified Procedure Description 70423 Limited bilateral noninvasive physiologic studies of upper or lower extremity arteries with bidirectional Doppler/PVR waveform analysis at 1-2 levels. Slinger Sequins: Maggy Dempsey T Staff Ordering Physician: Beena Barraza Conclusions * Right and left ankle brachial [...] Segmental BP RIGHT Brachial A mmH RIGHT CMO & PRESIDENT mmH RIGHT CMO & PRESIDENT Index: 0.53 RIGHT DPA mmH RIGHT DPA Index: 0.57 RIGHT Digit mmH RIGHT YAMILE Index: 0.57 RIGHT TBI Index: 0.00 LEFT CMO & PRESIDENT Index: 0.36 LEFT CMO & PRESIDENT mmH LEFT DPA Index: 0.41 LEFT DPA mmH LEFT YAMILE Index: 0.41 Doppler RIGHT CMO & PRESIDENT Waveform: Monophasic RIGHT DPA Waveform: Monophasic LEFT CMO & PRESIDENT Waveform: Monophasic LEFT DPA Waveform: Monophasic , PVR RIGHT Ankle Grade: Abnormal RIGHT Transmetarsal Grade: Abnormal RIGHT Digit (PPG) Grade: Absent LEFT Ankle Grade: Abnormal Prior Interventions 03/17/2025 right femoral and tibial bypass graft-. 03/17/2025 right femoral and tibial Report Signatures Finalized by Sylvia Meyer MD, RPVI, FSIR on 03/20/2025 09:40 AM [facility] BASIC METABOLIC PANELon 02-26 Anion gap [Moles/Vol] 13 mmol/L Normal 10-20 [facility] Comment on above: Order Comment: [facility] has implemented the eGFR calculation approach that does not have a coefficient for race that conforms to the NKF-ASN Task Force Recommendations. Performed By: #### 4 [id number] #### [facility] [address] [place], [place] [address] Emmanuel Plata M.D. [id number] Calcium [Mass/Vol] 9.0 mg/dL Normal 8.4-10.2 [facility] Comment on above: Order Comment: [facility] has implemented the eGFR calculation approach that does not have a coefficient for race that conforms to the NKF-ASN Task Force Recommendations. Performed By: #### 4 [id number] #### [facility] [address] [place], [place] [address] Emmanuel Plata M.D. [id number] Chloride [Moles/Vol] 108 mmol/L Normal 98-108 [facility] Comment on above: Order Comment: [facility] has implemented the eGFR calculation approach that does not have a coefficient for race that conforms to the NKF-ASN Task Force Recommendations. Performed By: #### 4 [id number] #### [facility] [address] [place] [address] 39163 Emmanuel Plata M.D. [id number] Creatinine [Mass/Vol] 1.12 mg/dL Normal 0.80-1.30 [facility] Comment on above: Order Comment: [facility] has implemented the eGFR calculation approach that does not have a coefficient for race that conforms to the NKF-ASN Task Force Recommendations. Performed By: #### 4 [id number] #### [facility] [address] [place] [address] 40527 Emmanuel Plata M.D. [id number] EGFR 64 mL/min/1.73 m2 Normal >=60 [facility] Comment on above: Order Comment: [facility] has implemented the eGFR calculation approach that does not have a coefficient for race that conforms to the NKF-ASN Task Force Recommendations. Result Comment: Maria Del Carmen mated GFR was calculated using the 2020 CKD-EPI creatinine equation. Performed By: #### 4 [id number] #### [facility] [address] [place] [address] 72593 Emmanuel Plata M.D. [id number] Glucose [Mass/Vol] 109 mg/dL High 65-99 [facility] Comment on above: Order Comment: [facility] has implemented the eGFR calculation approach that does not have a coefficient for race that conforms to the NKF-ASN Task Force Recommendations. Performed By: #### 4 [id number] #### [facility] [address] [place] [address] 89519 Emmanuel Plata M.D. [id number] HCO3 (Bld) [Moles/Vol] 24 mmol/L Normal 21-32 [facility] Comment on above: Order Comment: [facility] has implemented the eGFR calculation approach that does not have a coefficient for race that conforms to the NKF-ASN Task Force Recommendations. Performed By: #### 4 [id number] #### [facility] [address] [place] [address] 39698 Emmanuel Plata M.D. [id number] Potassium [Moles/Vol] 5.0 mmol/L Normal 3.5-5.1 [facility] Comment on above: Order Comment: [facility] has implemented the eGFR calculation approach that does not have a coefficient for race that conforms to the NKF-ASN Task Force Recommendations. Result Comment: Slig htly Hemolyzed Performed By: #### 4 [id number] #### [facility] [address] [place] [address] 59922 Emmanuel Plata M.D. [id number] Sodium [Moles/Vol] 140 mmol/L Normal 135-145 [facility] Comment on above: Order Comment: [facility] has implemented the eGFR calculation approach that does not have a coefficient for race that conforms to the NKF-ASN Task Force Recommendations. Performed By: #### 4 [id number] #### [facility] [address] [place] [address] 93033 Emmanuel Plata M.D. [id number] Urea nitrogen [Mass/Vol] 22 mg/dL Normal 8-25 [facility] Comment on above: Order Comment: [facility] has implemented the eGFR calculation approach that does not have a coefficient for race that conforms to the NKF-ASN Task Force Recommendations. Performed By: #### 4 [id number] #### [facility] [address] [place] [address] 52001 Emmanuel Plata M.D. [id number] Urea nitrogen/Creatinine [Mass ratio] 19.6 mg/mg Normal 10.0-20.0 [facility] Comment on above: Order Comment: [facility] has implemented the eGFR calculation approach that does not have a coefficient for race that conforms to the NKF-ASN Task Force Recommendations. Performed By: #### 4 [id number] #### [facility] [address] [place] [address] 69665 Emmanuel Plata M.D. [id number] Basic metabolic 2000 panelOr dered By: Larry Brady on 03-19-2025 Anion gap [Moles/Vol] 13 mmol/L 10 - 2 0 mmol/L [facility] Calcium [Mass/Vol] 9 mg/dL 8.4 - 10. 2 mg/dL [facility] Chloride [Moles/Vol] 108 mmol/L 98 - 10 8 mmol/L [facility] Creatinine [Mass/Vol] 1.12 mg/dL 0.80 - 1.30 mg/dL [facility] GFR/1.73 sq M.predicted CKD-EPI (S/P/Bld) [Vol rate/Area] 64 - PINF [facility] Comment on above: Estimated GFR was ca lculated using the 2020 CKD-EPI creatinine equation. Glucose [Mass/Vol] 109 mg/dL High 65 - 99 mg/dL [facility] HCO3 [Moles/Vol] 24 mmol/L 21 - 32 mmol/L [facility] Interpretation and review of laboratory results Abnormal [facility] Potassium [Moles/Vol] 5 mmol/L 3.5 - 5.1 mmol/L [facility] Comment on above: Slightly Hemolyzed Sodium [Moles/Vol] 140 mmol/L 135 - 145 mmol/L [facility] Urea nitrogen [Mass/Vol] 22 mg/dL 8 - 25 mg/dL [facility] Urea nitrogen/Creatinine [Mass ratio] 19.6 mg/mg 10.0 - 20.0 [facility] has implemented the eGFR calculation approach that does not have a coefficient for race that conforms to the NKF-ASN Task Force Recommendations. [facility] CBCon 03-19-2025 AUTO NRBC 0.0 % Normal [facility] Comment on above: Performed By: #### 4 [id number] #### [facility] [address] [place], [place] [address] Emmanuel Plata M.D. [id number] AUTO NRBC ABS COUNT 0.00 K/mcL Normal 0.00-0.00 [facility] Comment on above: Performed By: #### 4 [id number] #### [facility] [address] [place] [address] 46584 Emmanuel Plata M.D. [id number] Erythrocyte distribution width (RBC) [Ratio] 14.5 % Normal 11.6-14.8 [facility] Comment on above: Performed By: #### 4 [id number] #### [facility] [address] [place], [place] [address] Emmanuel Plata M.D. [id number] Hematocrit (Bld) [Volume fraction] 27.8 % Low 41.0-53.0 [facility] Comment on above: Performed By: #### 4 5163 #### [facility] [address] [place], [place] [address] Emmanuel Plata M.D. [id number] Hemoglobin (Bld) [Mass/Vol] 10.4 g/dL Low 13.5-17.5 [facility] Comment on above: Performed By: #### 4 8443 #### [facility] [address] [place] [address] Emmanuel Plata M.D. [id number] MCH (RBC) [Entitic mass] 36.1 pg High 26.0-34.0 [facility] Comment on above: Performed By: #### 4 3593 #### [facility] [address] [place] [address] Emmanuel Plata M.D. [id number] MCV (RBC) [Entitic vol] 96.5 fL Normal 80.0-100.0 [facility] Comment on above: Performed By: #### 4 5133 #### [facility] [address] [place] [address] Emmanuel Plata M.D. [id number] MEAN CORPUSCULAR HEMOGLOBIN CONC 37.4 g/dL High 31.0-37.0 [facility] Comment on above: Performed By: #### 4 1733 #### [facility] [address] [place], [place] [address] Emmanuel Plata M.D. [id number] Platelet mean volume (Bld) [Entitic vol] 9.6 fL Normal 9.4-12.4 [facility] Comment on above: Performed By: #### 4 7733 #### [facility] [address] [place], [place] [address]Nessa Plata M.D. [id number] Platelets (Bld) [#/Vol] 148 10*3/uL Low 150-400 [facility] Comment on above: Performed By: #### 4 5113 #### [facility] [address] [place] [address] Emmanuel Plata M.D. [id number] RBC (Bld) [#/Vol] 2.88 10*6/uL Low 4.50-5.90 [facility] Comment on above: Performed By: #### 4 5113 #### [facility] [address] [place] [address] Emmanuel Plata M.D. [id number] WBC (Bld) [#/Vol] 4.34 10*3/uL Low 4.50-11.00 [facility] Comment on above: Performed By: #### 4 5113 #### [facility] [address] [place] [address] 30[address] Emmanuel Plata M.D. [id number] CBC panel Auto (Bld)on 03-19 Erythrocyte distribution width (RBC) [Entitic vol] 14.5 % 11.6 - 14.8 % [facility] Hematocrit (Bld) [Volume fraction] 27.8 % Low 41.0 - 53.0 % [facility] Hemoglobin (Bld) [Mass/Vol] 10.4 g/dL Low 13.5 - 17.5 g/dL [facility] Interpretation and review of laboratory results Abnormal [facility] MCH (RBC) [Entitic mass] 36.1 pg High 26.0 - 34.0 pg [facility] MCHC (RBC) [Mass/Vol] 37.4 g/dL High 31.0 - 37.0 g/dL [facility] MCV (RBC) [Entitic vol] 96.5 fL 80.0 - 100.0 fL [facility] Nucleated RBC (Bld) [#/Vol] 0 10*3/uL [facility] Nucleated RBC/100 WBC (Bld) [Ratio] 0 % [facility] Platelet mean volume (Bld) [Entitic vol] 9.6 fL 9.4 - 12.4 fL [facility] Platelets (Bld) [#/Vol] 148 10*3/uL Low [facility] RBC (Bld) [#/Vol] 2.88 10*6/uL Low [facility] WBC (Bld) [#/Vol] 4.34 10*3/uL Low [facility] MAGNESIUM LEVELon 03-19-2025 Magnesium [Mass/Vol] 2.4 mg/dL Normal 1.6-2.4 [facility] Comment on above: Performed By: #### 4 6109 #### [facility] [address] [place] [address] Emmanuel Plata M.D. [id number] Magnesiumon 03-19-2025 Magnesium [Mass/Vol] 2.4 mg/dL 1.6 - 2 .4 mg/dL [facility] Magnesium [Mass/Vol]on 03-19 Interpretation and review of laboratory results Normal [facility] No Panel InformationOrdered By: Larry Brady on 03-19-2025 [facility] BASIC METABOLIC PANELon 02-26 Anion gap [Moles/Vol] 16 mmol/L Normal 10-20 [facility] Comment on above: Order Comment: [facility] has implemented the eGFR calculation approach that does not have a coefficient for race that conforms to the NKF-ASN Task Force Recommendations. Performed By: #### 4 6109 #### [facility] [address] [place], [place] [address] Emmanuel Plata M.D. [id number] Calcium [Mass/Vol] 8.2 mg/dL Low 8.4-10.2 [facility] Comment on above: Order Comment: [facility] has implemented the eGFR calculation approach that does not have a coefficient for race that conforms to the NKF-ASN Task Force Recommendations. Performed By: #### 4 6109 #### [facility] [address] [place] [address] 248[address] Emmanuel Plata M.D. [id number] Chloride [Moles/Vol] 109 mmol/L High 98-108 [facility] Comment on above: Order Comment: [facility] has implemented the eGFR calculation approach that does not have a coefficient for race that conforms to the NKF-ASN Task Force Recommendations. Performed By: #### 4 6109 #### [facility] [address] [place] [address] 16636 Emmanuel Plata M.D. [id number] Creatinine [Mass/Vol] 1.05 mg/dL Normal 0.80-1.30 [facility] Comment on above: Order Comment: [facility] has implemented the eGFR calculation approach that does not have a coefficient for race that conforms to the NKF-ASN Task Force Recommendations. Performed By: #### 4 6109 #### [facility] [address] [place], [place] [address] Emmanuel Plata M.D. [id number] EGFR 69 mL/min/1.73 m2 Normal >=60 [facility] Comment on above: Order Comment: [facility] has implemented the eGFR calculation approach that does not have a coefficient for race that conforms to the NKF-ASN Task Force Recommendations. Result Comment: Maria Del Carmen mated GFR was calculated using the 2020 CKD-EPI creatinine equation. Performed By: #### 4 6109 #### [facility] [address] [place] [address] Emmanuel Plata M.D. [id number] Glucose [Mass/Vol] 111 mg/dL High 65-99 [facility] Comment on above: Order Comment: [facility] has implemented the eGFR calculation approach that does not have a coefficient for race that conforms to the NKF-ASN Task Force Recommendations. Performed By: #### 4 6109 #### [facility] [address] [place] [address] Emmanuel Plata M.D. [id number] HCO3 (Bld) [Moles/Vol] 19 mmol/L Low 21-32 [facility] Comment on above: Order Comment: [facility] has implemented the eGFR calculation approach that does not have a coefficient for race that conforms to the NKF-ASN Task Force Recommendations. Performed By: #### 4 6109 #### [facility] [address] [place] [address] 60878 Emmanuel Plata M.D. [id number] Potassium [Moles/Vol] 4.1 mmol/L Normal 3.5-5.1 [facility] Comment on above: Order Comment: [facility] has implemented the eGFR calculation approach that does not have a coefficient for race that conforms to the NKF-ASN Task Force Recommendations. Result Comment: Slig htly Hemolyzed Performed By: #### 4 6109 #### [facility] [address] [place], [place] [address] Emmanuel Plata M.D. [id number] Sodium [Moles/Vol] 140 mmol/L Normal 135-145 [facility] Comment on above: Order Comment: [facility] has implemented the eGFR calculation approach that does not have a coefficient for race that conforms to the NKF-ASN Task Force Recommendations. Performed By: #### 4 6109 #### [facility] [address] [place] [address]32[address] Emmanuel Plata M.D. [id number] Urea nitrogen [Mass/Vol] 18 mg/dL Normal 8-25 [facility] Comment on above: Order Comment: [facility] has implemented the eGFR calculation approach that does not have a coefficient for race that conforms to the NKF-ASN Task Force Recommendations. Performed By: #### 4 6109 #### [facility] [address] [place] [address] 22529 Emmanuel Plata M.D. [id number] Urea nitrogen/Creatinine [Mass ratio] 17.1 mg/mg Normal 10.0-20.0 [facility] Comment on above: Order Comment: [facility] has implemented the eGFR calculation approach that does not have a coefficient for race that conforms to the NKF-ASN Task Force Recommendations. Performed By: #### 4 6109 #### [facility] [address] [place] [address] 360[address] Emmanuel Plata M.D. [id number] Basic metabolic 2000 panelOr dered By: Fred Hameed on 03-18-2025 Anion gap [Moles/Vol] 16 mmol/L 10 - 2 0 mmol/L [facility] Calcium [Mass/Vol] 8.2 mg/dL Low 8.4 - 10. 2 mg/dL [facility] Chloride [Moles/Vol] 109 mmol/L High 98 - 10 8 mmol/L [facility] Creatinine [Mass/Vol] 1.05 mg/dL 0.80 - 1.30 mg/dL [facility] GFR/1.73 sq M.predicted CKD-EPI (S/P/Bld) [Vol rate/Area] 69 - PINF [facility] Comment on above: Estimated GFR was ca lculated using the 2020 CKD-EPI creatinine equation. Glucose [Mass/Vol] 111 mg/dL High 65 - 99 mg/dL [facility] HCO3 [Moles/Vol] 19 mmol/L Low 21 - 32 mmol/L [facility] Interpretation and review of laboratory results Abnormal [facility] Potassium [Moles/Vol] 4.1 mmol/L 3.5 - 5.1 mmol/L [facility] Comment on above: Slightly Hemolyzed Sodium [Moles/Vol] 140 mmol/L 135 - 145 mmol/L [facility] Urea nitrogen [Mass/Vol] 18 mg/dL 8 - 25 mg/dL [facility] Urea nitrogen/Creatinine [Mass ratio] 17.1 mg/mg 10.0 - 20.0 [facility] has implemented the eGFR calculation approach that does not have a coefficient for race that conforms to the NKF-ASN Task Force Recommendations. [facility] CBCon 03-18-2025 AUTO NRBC 0.0 % Normal [facility] Comment on above: Performed By: #### 4 [id number] #### [facility] [address] [place] [address] 52272 Emmanuel Plata M.D. [id number] AUTO NRBC ABS COUNT 0.00 K/mcL Normal 0.00-0.00 [facility] Comment on above: Performed By: #### 4 [id number] #### [facility] [address] [place], [place] [address] Emmanuel Plata M.D. [id number] Erythrocyte distribution width (RBC) [Ratio] 13.3 % Normal 11.6-14.8 [facility] Comment on above: Performed By: #### 4 [id number] #### [facility] [address] [place] [address] Emmanuel Plata M.D. [id number] Hematocrit (Bld) [Volume fraction] 28.9 % Low 41.0-53.0 [facility] Comment on above: Performed By: #### 4 [id number] #### [facility] [address] [place] [address] Emmanuel Plata M.D. [id number] Hemoglobin (Bld) [Mass/Vol] 10.5 g/dL Low 13.5-17.5 [facility] Comment on above: Performed By: #### 4 [id number] #### [facility] [address] [place] [address] Emmanuel Plata M.D. [id number] MCH (RBC) [Entitic mass] 34.3 pg High 26.0-34.0 [facility] Comment on above: Performed By: #### 4 [id number] #### [facility] [address] [place], [place] [address] Emmanuel Plata M.D. [id number] MCV (RBC) [Entitic vol] 94.4 fL Normal 80.0-100.0 [facility] Comment on above: Performed By: #### 4 [id number] #### [facility] [address] [place], [place] [address] Emmanuel Plata M.D. [id number] MEAN CORPUSCULAR HEMOGLOBIN CONC 36.3 g/dL Normal 31.0-37.0 [facility] Comment on above: Performed By: #### 4 [id number] #### [facility] [address] [place] [address] 7[address]34 Emmanuel Plata M.D. [id number] Platelet mean volume (Bld) [Entitic vol] 9.7 fL Normal 9.4-12.4 [facility] Comment on above: Performed By: #### 4 [id number] #### [facility] [address] [place] [address] 63178 Emmanuel Plata M.D. [id number] Platelets (Bld) [#/Vol] 157 10*3/uL Normal 150-400 [facility] Comment on above: Performed By: #### 4 [id number] #### [facility] [address] [place] [address] Emmanuel Plata M.D. [id number] RBC (Bld) [#/Vol] 3.06 10*6/uL Low 4.50-5.90 [facility] Comment on above: Performed By: #### 4 [id number] #### [facility] [address] [place] [address] 52525 Emmanuel Plata M.D. [id number] WBC (Bld) [#/Vol] 5.05 10*3/uL Normal 4.50-11.00 [facility] Comment on above: Performed By: #### 4 [id number] #### [facility] [address] [place] [address] 15868 Emmanuel Plata M.D. [id number] CBC panel Auto (Bld)on 03-18 Erythrocyte distribution width (RBC) [Entitic vol] 13.3 % 11.6 - 14.8 % [facility] Hematocrit (Bld) [Volume fraction] 28.9 % Low 41.0 - 53.0 % [facility] Hemoglobin (Bld) [Mass/Vol] 10.5 g/dL Low 13.5 - 17.5 g/dL [facility] Interpretation and review of laboratory results Abnormal [facility] MCH (RBC) [Entitic mass] 34.3 pg High 26.0 - 34.0 pg [facility] MCHC (RBC) [Mass/Vol] 36.3 g/dL 31.0 - 37.0 g/dL [facility] MCV (RBC) [Entitic vol] 94.4 fL 80.0 - 100.0 fL [facility] Nucleated RBC (Bld) [#/Vol] 0 10*3/uL [facility] Nucleated RBC/100 WBC (Bld) [Ratio] 0 % [facility] Platelet mean volume (Bld) [Entitic vol] 9.7 fL 9.4 - 12.4 fL [facility] Platelets (Bld) [#/Vol] 157 10*3/uL [facility] RBC (Bld) [#/Vol] 3.06 10*6/uL Low [facility] WBC (Bld) [#/Vol] 5.05 10*3/uL [facility] MAGNESIUM LEVELon 03-18-2025 Magnesium [Mass/Vol] 2.1 mg/dL Normal 1.6-2.4 [facility] Comment on above: Performed By: #### 4 6109 #### [facility] [address] [place] [address] Emmanuel Plata M.D. [id number] Magnesiumon 03-18-2025 Magnesium [Mass/Vol] 2.1 mg/dL 1.6 - 2 .4 mg/dL [facility] Magnesium [Mass/Vol]on 03-18 Interpretation and review of laboratory results Normal [facility] No Panel Informationon 03-18 [facility] US Lower extremity vein - ri ton 03-18-2025 Fluoroscopy used for intraoperative angiogram. Refer to the operative report for details. [employer] Workstation ID: [id number] [facility] EXAMINATION: XR OR ANGIO LOWER EXTREMITY RIGHT [...] in Ka,r mGy: 7.18. FINDINGS: See impression. Sylvia Mora MD - 03/18/2025 EXAMINATION: XR OR ANGIO [...] report for details. MAY/edi Workstation ID: [id number] [facility] Lower extremity vein - ri ghtOrdered By: Sylvia Meyer on 03-18-2025 [facility] Work Phone: APTT HEPARIN COVERAGEon 02-26 aPTT Coag (Bld) [Time] 92 s High 23-34 [facility] Comment on above: Order Comment: Thera peutic range for APTT's is 68 - 104 seconds Performed By: #### 4 6109 #### [facility] [address] [place] [address] Emmanuel Plata M.D. [id number] APTT Heparin Coverageon 02-26 aPTT Coag (Bld) [Time] 92 s High [facility] Interpretation and review of laboratory results Abnormal [facility] Therapeutic range fo r APTT's is 68 - 104 seconds [facility] BASIC METABOLIC PANELon 02-26 Anion gap [Moles/Vol] 12 mmol/L Normal 10-20 [facility] Comment on above: Order Comment: Thera peutic range for APTT's is 68 - 104 seconds Performed By: #### 4 5113 #### [facility] [address] [place] [address] Emmanuel Plata M.D. [id number] Calcium [Mass/Vol] 8.5 mg/dL Normal 8.4-10.2 [facility] Comment on above: Order Comment: Thera peutic range for APTT's is 68 - 104 seconds Performed By: #### 4 5113 #### [facility] [address] [place], [place] [address] Emmanuel Plata M.D. [id number] Chloride [Moles/Vol] 106 mmol/L Normal 98-108 [facility] Comment on above: Order Comment: Thera peutic range for APTT's is 68 - 104 seconds Performed By: #### 4 5113 #### [facility] [address] [place], [place] [address] Emmanuel Plata M.D. [id number] Creatinine [Mass/Vol] 1.05 mg/dL Normal 0.80-1.30 [facility] Comment on above: Order Comment: Thera peutic range for APTT's is 68 - 104 seconds Performed By: #### 4 5113 #### [facility] [address] [place], [place] [address] Emmanuel Plata M.D. [id number] EGFR 69 mL/min/1.73 m2 Normal >=60 [facility] Comment on above: Order Comment: Thera peutic range for APTT's is 68 - 104 seconds Result Comment: Maria Del Carmen mated GFR was calculated using the 2020 CKD-EPI creatinine equation. Performed By: #### 4 5113 #### [facility] [address] [place], [place] [address] Emmanuel Plata M.D. [id number] Glucose [Mass/Vol] 90 mg/dL Normal 65-99 [facility] Comment on above: Order Comment: Thera peutic range for APTT's is 68 - 104 seconds Performed By: #### 4 5113 #### [facility] [address] [place], [place] [address] Emmanuel Plata M.D. [id number] HCO3 (Bld) [Moles/Vol] 24 mmol/L Normal 21-32 [facility] Comment on above: Order Comment: Thera peutic range for APTT's is 68 - 104 seconds Performed By: #### 4 5113 #### [facility] [address] [place] [address] Emmanuel Plata M.D. [id number] Potassium [Moles/Vol] 4.1 mmol/L Normal 3.5-5.1 [facility] Comment on above: Order Comment: Thera peutic range for APTT's is 68 - 104 seconds Performed By: #### 4 5113 #### [facility] [address] [place] [address] Emmanuel Plata M.D. [id number] Sodium [Moles/Vol] 138 mmol/L Normal 135-145 [facility] Comment on above: Order Comment: Thera peutic range for APTT's is 68 - 104 seconds Performed By: #### 4 5113 #### [facility] [address] [place] [address] Emmanuel Plata M.D. [id number] Urea nitrogen [Mass/Vol] 16 mg/dL Normal 8-25 [facility] Comment on above: Order Comment: Thera peutic range for APTT's is 68 - 104 seconds Performed By: #### 4 5113 #### [facility] [address] [place], [place] [address] Emmanuel Plata M.D. [id number] Urea nitrogen/Creatinine [Mass ratio] 15.2 mg/mg Normal 10.0-20.0 [facility] Comment on above: Order Comment: Thera peutic range for APTT's is 68 - 104 seconds Performed By: #### 4 5114 #### [facility] [address] [place] [address] Emmanuel Plata M.D. [id number] Basic metabolic 2000 panelon 03-17-2025 Anion gap [Moles/Vol] 12 mmol/L 10 - 2 0 mmol/L [facility] Calcium [Mass/Vol] 8.5 mg/dL 8.4 - 10. 2 mg/dL [facility] Chloride [Moles/Vol] 106 mmol/L 98 - 10 8 mmol/L [facility] Creatinine [Mass/Vol] 1.05 mg/dL 0.80 - 1.30 mg/dL [facility] GFR/1.73 sq M.predicted CKD-EPI (S/P/Bld) [Vol rate/Area] 69 - PINF [facility] Comment on above: Estimated GFR was ca lculated using the 2020 CKD-EPI creatinine equation. Glucose [Mass/Vol] 90 mg/dL 65 - 99 mg/dL [facility] HCO3 [Moles/Vol] 24 mmol/L 21 - 32 mmol/L [facility] Potassium [Moles/Vol] 4.1 mmol/L 3.5 - 5.1 mmol/L [facility] Sodium [Moles/Vol] 138 mmol/L 135 - 145 mmol/L [facility] Urea nitrogen [Mass/Vol] 16 mg/dL 8 - 25 mg/dL [facility] Urea nitrogen/Creatinine [Mass ratio] 15.2 mg/mg 10.0 - 20.0 [facility] has implemented the eGFR calculation approach that does not have a coefficient for race that conforms to the NKF-ASN Task Force Recommendations. [facility] CBCon 03-17-2025 AUTO NRBC 0.0 % Normal [facility] Comment on above: Performed By: #### 4 [id number] #### [facility] [address] [place], [place] [address] Emmanuel Plata M.D. [id number] AUTO NRBC ABS COUNT 0.00 K/mcL Normal 0.00-0.00 [facility] Comment on above: Performed By: #### 4 [id number] #### [facility] [address] [place], [place] [address] Emmanuel Plata M.D. [id number] Erythrocyte distribution width (RBC) [Ratio] 13.2 % Normal 11.6-14.8 [facility] Comment on above: Performed By: #### 4 [id number] #### [facility] [address] [place], [place] [address] Emmanuel Plata M.D. [id number] Hematocrit (Bld) [Volume fraction] 33.1 % Low 41.0-53.0 [facility] Comment on above: Result Comment: Repe ated AND verified Performed By: #### 4 [id number] #### [facility] [address] [place] [address] Emmanuel Plata M.D. [id number] Hemoglobin (Bld) [Mass/Vol] 11.0 g/dL Low 13.5-17.5 [facility] Comment on above: Performed By: #### 4 [id number] #### [facility] [address] [place] [address] Emmanuel Plata M.D. [id number] MCH (RBC) [Entitic mass] 29.8 pg Normal 26.0-34.0 [facility] Comment on above: Performed By: #### 4 [id number] #### [facility] [address] [place] [address] Emmanuel Plata M.D. [id number] MCV (RBC) [Entitic vol] 89.7 fL Normal 80.0-100.0 [facility] Comment on above: Performed By: #### 4 [id number] #### [facility] [address] [place] [address] Emmanuel Plata M.D. [id number] MEAN CORPUSCULAR HEMOGLOBIN CONC 33.2 g/dL Normal 31.0-37.0 [facility] Comment on above: Result Comment: Cold Agglutinin present Performed By: #### 4 5241 #### [facility] [address] [place] [address] Emmanuel Plata M.D. [id number] Platelet mean volume (Bld) [Entitic vol] 10.2 fL Normal 9.4-12.4 [facility] Comment on above: Performed By: #### 4 [id number] #### [facility] [address] [place] [address] 47[address] Emmanuel Plata M.D. [id number] Platelets (Bld) [#/Vol] 153 10*3/uL Normal 150-400 [facility] Comment on above: Performed By: #### 4 [id number] #### [facility] [address] [place] [address] 27197 Emmanuel Plata M.D. [id number] RBC (Bld) [#/Vol] 3.69 10*6/uL Low 4.50-5.90 [facility] Comment on above: Performed By: #### 4 [id number] #### [facility] [address] [place] [address] 02096 Emmanuel Plata M.D. [id number] WBC (Bld) [#/Vol] 3.29 10*3/uL Low 4.50-11.00 [facility] Comment on above: Performed By: #### 4 [id number] #### [facility] [address] [place] [address] 92604 Emmanuel Plata M.D. [id number] CBC panel Auto (Bld)on 03-17 Erythrocyte distribution width (RBC) [Entitic vol] 13.2 % 11.6 - 14.8 % [facility] Hematocrit (Bld) [Volume fraction] 33.1 % Low 41.0 - 53.0 % [facility] [facility] Comment on above: Repeated & verified Hemoglobin (Bld) [Mass/Vol] 11 g/dL Low 13.5 - 17.5 g/dL [facility] Interpretation and review of laboratory results Abnormal [facility] MCH (RBC) [Entitic mass] 29.8 pg 26.0 - 34.0 pg [facility] MCHC (RBC) [Mass/Vol] 33.2 g/dL 31.0 - 37.0 g/dL [facility] Comment on above: Cold Agglutinin pres ent MCV (RBC) [Entitic vol] 89.7 fL 80.0 - 100.0 fL [facility] Nucleated RBC (Bld) [#/Vol] 0 10*3/uL [facility] Nucleated RBC/100 WBC (Bld) [Ratio] 0 % [facility] Platelet mean volume (Bld) [Entitic vol] 10.2 fL 9.4 - 12.4 fL [facility] Platelets (Bld) [#/Vol] 153 10*3/uL [facility] RBC (Bld) [#/Vol] 3.69 10*6/uL Low [facility] WBC (Bld) [#/Vol] 3.29 10*3/uL Low [facility] ECG 12 Leadon 03-17-2025 Atrial Rate 63 BPM [facility] P [place] 86 degrees [facility] P-R Interval 208 ms [facility] Q-T Interval 454 ms [facility] QRS Duration 102 ms [facility] QTC Calculation (Bezet) 464 ms [facility] R [place] 45 degrees [facility] T [place] 44 degrees [facility] Ventricular Rate [address] [facility] Sinus rhythm with Premature supraventricular complexes Otherwise normal ECG Confirmed by MARY CARLTON ([id number]) on 03/17/2025 7:58:31 AM MUSE [facility] Glucose (Bld) [Mass/Vol]on 0 03-17-2025 Glucose [Mass/Vol] 105 mg/dL High 65 - 99 mg/dL [facility] Interpretation and review of laboratory results Abnormal [facility] HEMOGLOBIN AND HEMATOCRITon 03-17-2025 Hematocrit (Bld) [Volume fraction] 30.5 % Low 41.0-53.0 [facility] Comment on above: Performed By: #### 4 [id number] #### [facility] [address] [place], [place] [id number] Emmanuel Plata M.D. [id number] Hemoglobin (Bld) [Mass/Vol] 11.2 g/dL Low 13.5-17.5 [facility] Comment on above: Performed By: #### 4 [id number] #### [facility] [address] [place], [place] [address] Emmanuel Plata M.D. [id number] Hemoglobin and Hematocrit pa franklin (Bld)on 03-17-2025 Hematocrit (Bld) [Volume fraction] 30.5 % Low 41.0 - 53.0 % [facility] Hemoglobin (Bld) [Mass/Vol] 11.2 g/dL Low 13.5 - 17.5 g/dL [facility] Interpretation and review of laboratory results Abnormal [facility] MAGNESIUM LEVELon 03-17-2025 Magnesium [Mass/Vol] 2.1 mg/dL Normal 1.6-2.4 [facility] Comment on above: Performed By: #### 4 [id number] #### [facility] [address], [place] [address] Emmanuel Plata M.D. 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 POSTOPERATIVE DIAGNOSIS Chronic limb-threatening ischemia of the right foot with rest pain and early ischemic changes to the skin. PROCEDURE PERFORMED Right SFA to the peroneal bypass using left reverse cephalic vein. ANESTHESIA General endotracheal. INDICATIONS FOR PROCEDURE The patient is an 85-year-old man with known peripheral vascular disease in whom I had done a bypass on the left leg remotely. He presents now with rest pain and early gangrenous changes of the right foot and we took him today for the above-stated procedure. DESCRIPTION OF PROCEDURE IN DETAIL The patient was identified in the preoperative holding area. The risks, benefits, and alternatives were explained. He wished to proceed. He was, therefore, taken to the operating room, placed on the table in supine position. All pressure points padded where general endotracheal anesthesia was induced. Antibiotics were administered and an attending time-out was performed. His right groin and leg as well as his left arm were all prepped and draped in the usual sterile fashion. A medial calf incision was made in a longitudinal fashion and deepened through the subcutaneous tissue and muscle fascia using electrocautery. The gastrocnemius muscle was retracted posteriorly and the attachments of the soleus taken down off the tibia. The neurovascular bundle was identified and with slow, careful sharp dissection, we were ultimately able to identify the peroneal, which had a good Doppler signal. It was dissected free on its anterior surface. Next, a longitudinal incision was made on the distal thigh. This was deepened to subcutaneous tissue and muscle fascia using electrocautery. The sartorius muscle was retracted posteriorly to enter the above knee popliteal space. The neurovascular bundle was identified and the popliteal artery at this level circumferentially dissected out and controlled with a Silastic vessel loop. Finally, the cephalic vein was harvested from the left arm and fully mobilized. It was then ligated and divided both proximally and distally and passed off the field. An anatomic tunnel was created between the 2 leg incisions and the patient systemically heparinized. Vascular clamps were then used to occlude the popliteal artery proximally and distally. A longitudinal arteriotomy was made using 11 blade and extended using Perales scissors. A focal endarterectomy was performed and the vein brought up onto the field and spatulated and sewn onto the artery using a running 6-0 Prolene. Vascular control was then released and the vein graft flushed through. It was marked on its anterior surface under pressure and passed through the previously created tunnel taking care not to twist or kink. At this point, a pneumatic tourniquet was placed on the distal thigh and the limb exsanguinated and the tourniquet inflated. A longitudinal arteriotomy was made in the peroneal artery using a Super Sharp blade and extended using Perales scissors. The vein graft was trimmed to the appropriate length, beveled and sewn on to the artery using a running 7-0 Prolene. Prior to placing our final stitches, the tourniquet was released allowing the artery to flush through. Our final stitches placed and the suture tied down. There was good Doppler signal in the artery beyond our graft. However, we did elect to shoot an angiogram. A 23-Latvian butterfly needle was used to puncture the graft and multiple angiographic images were obtained which showed in-line flow via the peroneal to the level of the ankle where the posterior tibial was filling via the peroneal collaterals and good flow onto the heel, but it was difficult to see much flow into the forefoot. In any event, I did not think that there was anything further we could do so 50 of protamine was administered. Hemostasis was achieved in all the incisions, which were then closed using multiple layers of 2-0 and 3-0 Vicryl followed by skin closure using 4-0 Monocryl in a running subcuticular pattern. Sterile dressings were applied. The patient was awoken and taken to the PACU in good condition. He tolerated the procedure well with no complication. COUNTS All sponge needle counts were correct at the conclusion of the case. SPECIMENS There were no specimens. ESTIMATED BLOOD LOSS 200 cc. MOHSEN SARABIA MD D 03/17/2025 16:58 [id number] T 03/17/2025 23:17 JPW/MODL AUTHENTICATED BY MOHSEN SARABIA, ON 03/24/2025 10:13:[address] [facility] POC GLUCOSE - [facility] 025 Glucose [Mass/Vol] 105 mg/dL High 65-99 [facility] Comment on above: Performed By: #### 4 [id number] #### [facility] [address] [address] [id number] [facility] Lower extremity vein - ri [facility] 03-17-2025 Radiology Study observation (narrative) [facility] XR OR ANGIO LOWER EXTREMITY RIGHTon 03-17-2025 XR OR ANGIO LOWER EXTREMITY RIGHT EXAMINATION: XR OR ANGIO LOWER EXTREMITY RIGHT [...] report for details. MAY/edi Workstation ID: [id number] Dictated by: Sylvia MEYER on MonMar 18, 2025 7:54:33 AM EDT Transcribed by: ZENA NEGRETE on MonMar 18, 2025 8:58:15 AM EDT Finalized by: Sylvia MEYER on MonMar 18, 2025 10:04:[address] [facility] Comment on above: Order Comment: Injur y/Trauma or Illness?:Illness/Other How long have you had these symptoms (acute/chronic)?:Acute Reason for exam?:rt leg bypass Type of Exam?:Unknown Additional signs and symptoms?:sx Fluoro time in minutes:1.3 Fluoro dose in mGy?:7.18 APTT HEPARIN COVERAGEon 02-26 aPTT Coag (Bld) [Time] 85 s High 23-34 [facility] Comment on above: Order Comment: Thera peutic range for APTT's is 68 - 104 seconds Performed By: #### 4 [id number] ####[facility] [address] [place] [address] Emmanuel Plata M.D. [id number] aPTT Coag (Bld) [Time] 90 s High 23-34 [facility] Comment on above: Order Comment: Thera peutic range for APTT's is 68 - 104 seconds Performed By: #### 4 5113 #### [facility] [address] [place] [address] Emmanuel Plata M.D. [id number] aPTT Coag (Bld) [Time] 91 s High 23-34 [facility] Comment on above: Order Comment: Thera peutic range for APTT's is 68 - 104 seconds Performed By: #### 4 6109 #### [facility] [address] [place] [address] Emmanuel Plata M.D. [id number] APTT Heparin CoverageOrdered By: Remigio Hernandez on 03-16-2025 aPTT Coag (Bld) [Time] 85 s High [facility] Interpretation and review of laboratory results Abnormal [facility] Therapeutic range fo r APTT's is 68 - 104 seconds [facility] APTT Heparin CoverageOrdered By: Flory Pino on 03-16-2025 aPTT Coag (Bld) [Time] 90 s High [facility] Therapeutic range fo r APTT's is 68 - 104 seconds [facility] APTT Heparin CoverageOrdered By: Deena Escoto on 03-16-2025 aPTT Coag (Bld) [Time] 91 s High [facility] Interpretation and review of laboratory results Abnormal [facility] Therapeutic range fo r APTT's is 68 - 104 seconds [facility] BASIC METABOLIC PANELon 02-26 Anion gap [Moles/Vol] 15 mmol/L Normal 10-20 [facility] Comment on above: Order Comment: [facility] has implemented the eGFR calculation approach that does not have a coefficient for race that conforms to the NKF-ASN Task Force Recommendations. Performed By: #### 4 [id number] #### [facility] [address] [place], [place] [address] Emmanuel Plata M.D. [id number] Calcium [Mass/Vol] 9.0 mg/dL Normal 8.4-10.2 [facility] Comment on above: Order Comment: [facility] has implemented the eGFR calculation approach that does not have a coefficient for race that conforms to the NKF-ASN Task Force Recommendations. Performed By: #### 4 [id number] #### [facility] [address] [place], [place] [address] Emmanuel Plata M.D. [id number] Chloride [Moles/Vol] 106 mmol/L Normal 98-108 [facility] Comment on above: Order Comment: [facility] has implemented the eGFR calculation approach that does not have a coefficient for race that conforms to the NKF-ASN Task Force Recommendations. Performed By: #### 4 [id number] #### [facility] [address] [place] [address] Emmanuel Plata M.D. [id number] Creatinine [Mass/Vol] 1.11 mg/dL Normal 0.80-1.30 [facility] Comment on above: Order Comment: [facility] has implemented the eGFR calculation approach that does not have a coefficient for race that conforms to the NKF-ASN Task Force Recommendations. Performed By: #### 4 [id number] #### [facility] [address] [place] [address] Emmanuel Plata M.D. [id number] EGFR 65 mL/min/1.73 m2 Normal >=60 [facility] Comment on above: Order Comment: [facility] has implemented the eGFR calculation approach that does not have a coefficient for race that conforms to the NKF-ASN Task Force Recommendations. Result Comment: Maria [place]en mated GFR was calculated using the 2020 CKD-EPI creatinine equation. Performed By: #### 4 [id number] #### [facility] [address] [place], [place] [address] Emmanuel Plata M.D. [id number] Glucose [Mass/Vol] 105 mg/dL High 65-99 [facility] Comment on above: Order Comment: [facility] has implemented the eGFR calculation approach that does not have a coefficient for race that conforms to the NKF-ASN Task Force Recommendations. Performed By: #### 4 6109 #### [facility] [address] [place] [address] Emmanuel Plata M.D. [id number] HCO3 (Bld) [Moles/Vol] 24 mmol/L Normal 21-32 [facility] Comment on above: Order Comment: [facility] has implemented the eGFR calculation approach that does not have a coefficient for race that conforms to the NKF-ASN Task Force Recommendations. Performed By: #### 4 [id number] #### [facility] [address] [place] [address] Emmanuel Plata M.D. [id number] Potassium [Moles/Vol] 4.3 mmol/L Normal 3.5-5.1 [facility] Comment on above: Order Comment: [facility] has implemented the eGFR calculation approach that does not have a coefficient for race that conforms to the NKF-ASN Task Force Recommendations. Performed By: #### 4 6109 #### [facility] [address] [place] [address] Emmanuel Plata M.D. [id number] Sodium [Moles/Vol] 141 mmol/L Normal 135-145 [facility] Comment on above: Order Comment: [facility] has implemented the eGFR calculation approach that does not have a coefficient for race that conforms to the NKF-ASN Task Force Recommendations. Performed By: #### 4 6109 #### [facility] [address] [place] [address] Emmanuel Plata M.D. [id number] Urea nitrogen [Mass/Vol] 20 mg/dL Normal 8-25 [facility] Comment on above: Order Comment: [facility] has implemented the eGFR calculation approach that does not have a coefficient for race that conforms to the NKF-ASN Task Force Recommendations. Performed By: #### 4 6109 #### [facility] [address] [place] [address] Emmanuel Plata M.D. [id number] Urea nitrogen/Creatinine [Mass ratio] 18.0 mg/mg Normal 10.0-20.0 [facility] Comment on above: Order Comment: [facility] has implemented the eGFR calculation approach that does not have a coefficient for race that conforms to the NKF-ASN Task Force Recommendations. Performed By: #### 4 [id number] #### [facility] [address] [place] [address] Emmanuel Plata M.D. [id number] Basic metabolic 2000 panelon 03-16-2025 Anion gap [Moles/Vol] 15 mmol/L 10 - 2 0 mmol/L [facility] Calcium [Mass/Vol] 9 mg/dL 8.4 - 10. 2 mg/dL [facility] Chloride [Moles/Vol] 106 mmol/L 98 - 10 8 mmol/L [facility] Creatinine [Mass/Vol] 1.11 mg/dL 0.80 - 1.30 mg/dL [facility] GFR/1.73 sq M.predicted CKD-EPI (S/P/Bld) [Vol rate/Area] 65 - PINF [facility] Comment on above: Estimated GFR was ca lculated using the 2020 CKD-EPI creatinine equation. Glucose [Mass/Vol] 105 mg/dL High 65 - 99 mg/dL [facility] HCO3 [Moles/Vol] 24 mmol/L 21 - 32 mmol/L [facility] Interpretation and review of laboratory results Abnormal [facility] Potassium [Moles/Vol] 4.3 mmol/L 3.5 - 5.1 mmol/L [facility] Sodium [Moles/Vol] 141 mmol/L 135 - 145 mmol/L [facility] Urea nitrogen [Mass/Vol] 20 mg/dL 8 - 25 mg/dL [facility] Urea nitrogen/Creatinine [Mass ratio] 18 mg/mg 10.0 - 20.0 [facility] has implemented the eGFR calculation approach that does not have a coefficient for race that conforms to the NKF-ASN Task Force Recommendations. [facility] Blood type and Indirect anti body screen panel (Bld)on 03-16-2025 ABO and Rh group Nom (Bld) Blood group O Rh(D) positive [facility] Blood group antibody screen Ql Negative [facility] Specimen Expires 03/19/2025 23:59 EST [facility] CBCon 03-16-2025 AUTO NRBC 0.0 % Normal [facility] Comment on above: Performed By: #### 4 5239 #### [facility] [address] [place] [address] Emmanuel Plata M.D. [id number] AUTO NRBC ABS COUNT 0.00 K/mcL Normal 0.00-0.00 [facility] Comment on above: Performed By: #### 4 1278 #### [facility] [address] [place] [address] Emmanuel Plata M.D. [id number] Erythrocyte distribution width (RBC) [Ratio] 13.3 % Normal 11.6-14.8 [facility] Comment on above: Performed By: #### 4 0418 #### [facility] [address] [place], [place] [address] Emmanuel Plata M.D. [id number] Hematocrit (Bld) [Volume fraction] 36.7 % Low 41.0-53.0 [facility] Comment on above: Performed By: #### 4 [id number] #### [facility] [address] [place] [address] Emmanuel Plata M.D. [id number] Hemoglobin (Bld) [Mass/Vol] 12.0 g/dL Low 13.5-17.5 [facility] Comment on above: Performed By: #### 4 [id number] #### [facility] [address] [place] [address] Emmanuel Plata M.D. [id number] MCH (RBC) [Entitic mass] 29.9 pg Normal 26.0-34.0 [facility] Comment on above: Performed By: #### 4 [id number] #### [facility] [address] [place], [place] [address] Emmanuel Plata M.D. [id number] MCV (RBC) [Entitic vol] 91.3 fL Normal 80.0-100.0 [facility] Comment on above: Performed By: #### 4 [id number] #### [facility] [address] [place], [place] [address] Emmanuel Plata M.D. [id number] MEAN CORPUSCULAR HEMOGLOBIN CONC 32.7 g/dL Normal 31.0-37.0 [facility] Comment on above: Performed By: #### 4 [id number] #### [facility] [address] [place], [place] [address] Emmanuel Plata M.D. [id number] Platelet mean volume (Bld) [Entitic vol] 10.1 fL Normal 9.4-12.4 [facility] Comment on above: Performed By: #### 4 7018 #### [facility] [address] [place] [address] Emmanuel Plata M.D. [id number] Platelets (Bld) [#/Vol] 159 10*3/uL Normal 150-400 [facility] Comment on above: Performed By: #### 4 [id number] #### [facility] [address] [place] [address] Emmanuel Plata M.D. [id number] RBC (Bld) [#/Vol] 4.02 10*6/uL Low 4.50-5.90 [facility] Comment on above: Performed By: #### 4 [id number] #### [facility] [address] [place] [address] Emmanuel Plata M.D. [id number] WBC (Bld) [#/Vol] 4.27 10*3/uL Low 4.50-11.00 [facility] Comment on above: Performed By: #### 4 [id number] #### [facility] [address] [place] [address] Emmanuel Plata M.D. [id number] CBC panel Auto (Bld)on 03-16 Erythrocyte distribution width (RBC) [Entitic vol] 13.3 % 11.6 - 14.8 % [facility] Hematocrit (Bld) [Volume fraction] 36.7 % Low 41.0 - 53.0 % [facility] Hemoglobin (Bld) [Mass/Vol] 12 g/dL Low 13.5 - 17.5 g/dL [facility] Interpretation and review of laboratory results Abnormal [facility] MCH (RBC) [Entitic mass] 29.9 pg 26.0 - 34.0 pg [facility] MCHC (RBC) [Mass/Vol] 32.7 g/dL 31.0 - 37.0 g/dL [facility] MCV (RBC) [Entitic vol] 91.3 fL 80.0 - 100.0 fL [facility] Nucleated RBC (Bld) [#/Vol] 0 10*3/uL [facility] Nucleated RBC/100 WBC (Bld) [Ratio] 0 % [facility] Platelet mean volume (Bld) [Entitic vol] 10.1 fL 9.4 - 12.4 fL [facility] Platelets (Bld) [#/Vol] 159 10*3/uL [facility] RBC (Bld) [#/Vol] 4.02 10*6/uL Low [facility] eah WBC (Bld) [#/Vol] 4.27 10*3/uL Low [facility] INR Coag (PPP) [Relative abi e]on 03-16-2025 PT Coag (PPP) [Time] 14.7 s [facility] During the induction phase of oral anticoagulation, the INR may not reflect the anticoagulation status of the patient. Therapeutic ranges for INR's are: Most clinical situations: INR 2.0-3.0 Mechanical Prosthetic Valve: INR 2.5-3.5 Critical: INR >5.0 [facility] MAGNESIUM LEVELon 03-16-2025 Magnesium [Mass/Vol] 2.3 mg/dL Normal 1.6-2.4 [facility] Comment on above: Performed By: #### 4 [id number] #### [facility] [address] [place] [address] Emmanuel Plata M.D. [id number] Magnesiumon 03-16-2025 Magnesium [Mass/Vol] 2.3 mg/dL 1.6 - 2 .4 mg/dL [facility] Magnesium [Mass/Vol]on 03-16 Interpretation and review of laboratory results Normal [facility] No Panel InformationOrdered By: Flory Pino on 03-16-2025 Interpretation and review of laboratory results Abnormal [facility] No Panel Informationon 03-16 [facility] PT/INRon 03-16-2025 INR Coag (PPP) [Relative time] 1.1 {INR} 0.8 - 1.1 [facility] INR Coag (PPP) [Relative time] 1.1 {INR} Normal 0.8-1.1 [facility] Comment on above: Order Comment: Thera peutic range for APTT's is 68 - 104 seconds Performed By: #### 4 5116 #### [facility] [address] [place] [address] Emmanuel Plata M.D. [id number] PT Coag (PPP) [Time] 14.7 s High 11.8-14.3 [facility] Comment on above: Order Comment: Thera peutic range for APTT's is 68 - 104 seconds Performed By: #### 4 5113 #### [facility], [place] [address] Emmanuel Plata M.D. [id number] TYPE AND SCREENon 03-16-2025 TYPE AND SCREEN ABORH: O Positive AB SCREEN: Negative EXPIRATION DATE: 03/19/2025 23:[address] [facility] Comment on above: Performed By: #### 4 [id number] #### [facility] [address] [place] [address] Emmanuel Plata M.D. [id number] US SAPHENOUS VEIN MAPon 02-26 US SAPHENOUS VEIN MAP Patient Info Name: Tristin Powell Age: 85 years : 1940 Gender: Male Exam Date: 03/14/2025 9:26 PM Patient Status: INPATIENT Site Location: [facility] Indications Z01.810 - Encounter for preprocedural cardiovascular examination Procedure Description 28969 Duplex examination using B-mode, color and spectral Doppler of extremity veins including responses to compression and other maneuvers; complete bilateral study. Slinger Sequins: Cristian Ellis RVT, [facility] Staff Ordering Physician: Beena Barraza Conclusions * The right great saphenous vein [...] by Aaron Hein MD, RPVI on 03/16/2025 11:15 AM [facility] US UE VEIN MAPon 03-16-2025 US UE VEIN MAP Patient Info Name: Tristin Powell Age: 85 years : 1940 Gender: Male Exam Date: 03/14/2025 9:20 PM Patient Status: INPATIENT Site Location: [facility] Indications Z01.810 - Encounter for preprocedural cardiovascular examination Procedure Description 47442 Duplex examination using B-mode, color and spectral Doppler of extremity veins including responses to compression and other maneuvers; complete bilateral study. Slinger Sequins: Cristian Ellis RVT, [facility] Staff Ordering Physician: Beena Barraza Conclusions * Right and left basilic and [...] Report Signatures Finalized by Aaron Hein MD, RPLUIZA on 03/16/2025 11:[address] [facility] Ultrasound Saphenous vein ma luis manuel 03-16-2025 Patient Info Name: Tristin Powell Age: 85 years : 1940 Gender: Male Exam Date: 03/14/2025 9:26 PM Patient Status: INPATIENT Site Location: [facility] Indications Z01.810 - Encounter for preprocedural cardiovascular examination Procedure Description 15103 Duplex examination using B-mode, color and spectral Doppler of extremity veins including responses to compression and other maneuvers; complete bilateral study. Slinger Sequins: Cristian Ellis RVT, [facility] Staff Ordering Physician: Beena Barraza Conclusions * The right great saphenous vein [...] by Aaron Hein MD, RPVI on 03/16/2025 11:15 AM [facility] Aaron Guillen M D - 03/16/2025 Patient Info Name: Tristin Powell Age: 85 years : 1940 Gender: Male Exam Date: 03/14/2025 9:26 PM Patient Status: INPATIENT Site Location: [facility] Indications Z01.810 - Encounter for preprocedural cardiovascular examination Procedure Description 64802 Duplex examination using B-mode, color and spectral Doppler of extremity veins including responses to compression and other maneuvers; complete bilateral study. Slinger Sequins: Cristian Ellis RVT, [facility] Staff Ordering Physician: Beena Barraza Conclusions * The right great saphenous vein [...] by Aaron Hein MD, RPVI on 03/16/2025 11:15 AM [facility] Upper extremity vein mapping on 03-16-2025 Patient Info Name: Tristin Powell Age: 85 years : 1940 Gender: Male Exam Date: 03/14/2025 9:20 PM Patient Status: INPATIENT Site Location: [facility] Indications Z01.810 - Encounter for preprocedural cardiovascular examination Procedure Description 87904 Duplex examination using B-mode, color and spectral Doppler of extremity veins including responses to compression and other maneuvers; complete bilateral study. Slinger Sequins: Cristian Ellis RVT, [facility] Staff Ordering Physician: Beena Celis * Right and left basilic and cephalic [...] Hein MD, RPVI on 03/16/2025 11:14 AM Aaron Diaz M D - 03/16/2025 Patient Info Name: Tristin Powell Age: 85 years : 1940 Gender: Male Exam Date: 03/14/2025 9:20 PM Patient Status: INPATIENT Site Location: [facility] Indications Z01.810 - Encounter for preprocedural cardiovascular examination Procedure Description 10259 Duplex examination using B-mode, color and spectral Doppler of extremity veins including responses to compression and other maneuvers; complete bilateral study. Slinger Sequins: Cristian Ellis RVT, [facility] Staff Ordering Physician: Beena Celis * Right and left basilic and cephalic [...] Hein MD, RPVI on 03/16/2025 11:14 AM [facility] APTTon 03-15-2025 aPTT Coag (Bld) [Time] 33 s Oh [facility] aPTT Coag (Bld) [Time] 33 s Normal 23-34 [facility] Comment on above: Order Comment: Thera peutic range for APTT's is 68 - 104 seconds Performed By: #### 4 5113 #### [facility] [address] [place], [place] [id number] Emmanuel Plata M.D. [id number] BASIC METABOLIC PANELon 02-25 Anion gap [Moles/Vol] 13 mmol/L Normal 10-20 [facility] Comment on above: Order Comment: [facility] has implemented the eGFR calculation approach that does not have a coefficient for race that conforms to the NKF-ASN Task Force Recommendations. Performed By: #### 4 6109 #### [facility] [address] [place] [address] Emmanuel Plata M.D. [id number] Calcium [Mass/Vol] 8.9 mg/dL Normal 8.4-10.2 [facility] Comment on above: Order Comment: [facility] has implemented the eGFR calculation approach that does not have a coefficient for race that conforms to the NKF-ASN Task Force Recommendations. Performed By: #### 4 6109 #### [facility] [address] [place] [address] 224[address] Emmanuel Plata M.D. [id number] Chloride [Moles/Vol] 108 mmol/L Normal 98-108 [facility] Comment on above: Order Comment: [facility] has implemented the eGFR calculation approach that does not have a coefficient for race that conforms to the NKF-ASN Task Force Recommendations. Performed By: #### 4 6109 #### [facility] [address] [place], [place] [address] Emmanuel Plata M.D. [id number] Creatinine [Mass/Vol] 1.12 mg/dL Normal 0.80-1.30 [facility] Comment on above: Order Comment: [facility] has implemented the eGFR calculation approach that does not have a coefficient for race that conforms to the NKF-ASN Task Force Recommendations. Performed By: #### 4 6109 #### [facility] [address] [place] [address] 87863 Emmanuel Plata M.D. [id number] EGFR 64 mL/min/1.73 m2 Normal >=60 [facility] Comment on above: Order Comment: [facility] has implemented the eGFR calculation approach that does not have a coefficient for race that conforms to the NKF-ASN Task Force Recommendations. Result Comment: Maria Del Carmen mated GFR was calculated using the 2020 CKD-EPI creatinine equation. Performed By: #### 4 6109 #### [facility] [address] [place], [place] [address] Emmanuel Plata M.D. [id number] Glucose [Mass/Vol] 139 mg/dL High 65-99 [facility] Comment on above: Order Comment: [facility] has implemented the eGFR calculation approach that does not have a coefficient for race that conforms to the NKF-ASN Task Force Recommendations. Performed By: #### 4 6109 #### [facility] [address] [place] [address] Emmanuel Plata M.D. [id number] HCO3 (Bld) [Moles/Vol] 24 mmol/L Normal 21-32 [facility] Comment on above: Order Comment: [facility] has implemented the eGFR calculation approach that does not have a coefficient for race that conforms to the NKF-ASN Task Force Recommendations. Performed By: #### 4 6109 #### [facility] [address] [place] [address] Emmanuel Plata M.D. [id number] Potassium [Moles/Vol] 3.9 mmol/L Normal 3.5-5.1 [facility] Comment on above: Order Comment: [facility] has implemented the eGFR calculation approach that does not have a coefficient for race that conforms to the NKF-ASN Task Force Recommendations. Performed By: #### 4 6109 #### [facility] [address] [place] [address]77[address] Emmanuel Plata M.D. [id number] Sodium [Moles/Vol] 141 mmol/L Normal 135-145 [facility] Comment on above: Order Comment: [facility] has implemented the eGFR calculation approach that does not have a coefficient for race that conforms to the NKF-ASN Task Force Recommendations. Performed By: #### 4 6109 #### [facility] [address] [place] [address] Emmanuel Plata M.D. [id number] Urea nitrogen [Mass/Vol] 19 mg/dL Normal 8-25 [facility] Comment on above: Order Comment: [facility] has implemented the eGFR calculation approach that does not have a coefficient for race that conforms to the NKF-ASN Task Force Recommendations. Performed By: #### 4 6109 #### [facility] [address] [place] [address] 16657 Emmanuel Plata M.D. [id number] Urea nitrogen/Creatinine [Mass ratio] 17.0 mg/mg Normal 10.0-20.0 [facility] Comment on above: Order Comment: [facility] has implemented the eGFR calculation approach that does not have a coefficient for race that conforms to the NKF-ASN Task Force Recommendations. Performed By: #### 4 6109 #### [facility] [address] [place] [address] Emmanuel Plata M.D. [id number] Basic metabolic 2000 panelon 03-15-2025 Anion gap [Moles/Vol] 13 mmol/L 10 - 2 0 mmol/L [facility] Calcium [Mass/Vol] 8.9 mg/dL 8.4 - 10. 2 mg/dL [facility] Chloride [Moles/Vol] 108 mmol/L 98 - 10 8 mmol/L [facility] Creatinine [Mass/Vol] 1.12 mg/dL 0.80 - 1.30 mg/dL [facility] GFR/1.73 sq M.predicted CKD-EPI (S/P/Bld) [Vol rate/Area] 64 - PINF [facility] Comment on above: Estimated GFR was ca lculated using the 2020 CKD-EPI creatinine equation. Glucose [Mass/Vol] 139 mg/dL High 65 - 99 mg/dL [facility] HCO3 [Moles/Vol] 24 mmol/L 21 - 32 mmol/L [facility] Interpretation and review of laboratory results Abnormal [facility] Potassium [Moles/Vol] 3.9 mmol/L 3.5 - 5.1 mmol/L [facility] Sodium [Moles/Vol] 141 mmol/L 135 - 145 mmol/L [facility] Urea nitrogen [Mass/Vol] 19 mg/dL 8 - 25 mg/dL [facility] Urea nitrogen/Creatinine [Mass ratio] 17 mg/mg 10.0 - 20.0 [facility] has implemented the eGFR calculation approach that does not have a coefficient for race that conforms to the NKF-ASN Task Force Recommendations. [facility] CBCon 03-15-2025 AUTO NRBC 0.0 % Normal [facility] Comment on above: Performed By: #### 4 [id number] ####[facility] [address] [place] [address]263 Emmanuel Plata M.D. [id number] AUTO NRBC ABS COUNT 0.00 K/mcL Normal 0.00-0.00 [facility] Comment on above: Performed By: #### 4 [id number] ####[facility] [address] [place] [address] 21776 Emmanuel Plata M.D. [id number] Erythrocyte distribution width (RBC) [Ratio] 13.4 % Normal 11.6-14.8 [facility] Comment on above: Performed By: #### 4 [id number] ####[facility] [address] [place] [address] 96694 Emmanuel Plata M.D. [id number] Hematocrit (Bld) [Volume fraction] 34.9 % Low 41.0-53.0 [facility] Comment on above: Performed By: #### 4 [id number] ####[facility] [address] [place] [address] Emmanuel Plata M.D. [id number] Hemoglobin (Bld) [Mass/Vol] 11.7 g/dL Low 13.5-17.5 [facility] Comment on above: Performed By: #### 4 [id number] ####[facility] [address] [place] [address] Emmanuel Plata M.D. [id number] MCH (RBC) [Entitic mass] 30.4 pg Normal 26.0-34.0 [facility] Comment on above: Performed By: #### 4 [id number] ####[facility] [address] [place], [place] [address] Emmanuel Plata M.D. [id number] MCV (RBC) [Entitic vol] 90.6 fL Normal 80.0-100.0 [facility] Comment on above: Result Comment: Repe ated AND verified Performed By: #### 4 [id number] ####[facility] [address] [place] [address] Emmanuel Plata M.D. [id number] MEAN CORPUSCULAR HEMOGLOBIN CONC 33.5 g/dL Normal 31.0-37.0 [facility] Comment on above: Result Comment: Repe ated AND verified Performed By: #### 4 [id number] ####[facility] [address] [place], [place] [address] Emmanuel Plata M.D. [id number] Platelet mean volume (Bld) [Entitic vol] 9.9 fL Normal 9.4-12.4 [facility] Comment on above: Performed By: #### 4 0418 ####[facility] [address] [place] [address]687 Emmanuel Plata M.D. [id number] Platelets (Bld) [#/Vol] 144 10*3/uL Low 150-400 [facility] Comment on above: Performed By: #### 4 [id number] ####[facility] [address] [place] [address] 30366 Emmanuel Plata M.D. [id number] RBC (Bld) [#/Vol] 3.85 10*6/uL Low 4.50-5.90 [facility] Comment on above: Performed By: #### 4 [id number] ####[facility] [address] [place] [address] 60827 Emmanuel Plata M.D. [id number] WBC (Bld) [#/Vol] 3.23 10*3/uL Low 4.50-11.00 [facility] Comment on above: Performed By: #### 4 [id number] ####[facility] [address] [place] [address] 28539 Emmanuel Plata M.D. [id number] CBC panel Auto (Bld)on 03-15 Erythrocyte distribution width (RBC) [Entitic vol] 13.4 % 11.6 - 14.8 % [facility] Hematocrit (Bld) [Volume fraction] 34.9 % Low 41.0 - 53.0 % [facility] Hemoglobin (Bld) [Mass/Vol] 11.7 g/dL Low 13.5 - 17.5 g/dL [facility] Interpretation and review of laboratory results Abnormal [facility] MCH (RBC) [Entitic mass] 30.4 pg 26.0 - 34.0 pg [facility] MCHC (RBC) [Mass/Vol] 33.5 g/dL 31.0 - 37.0 g/dL [facility] Comment on above: Repeated & verified MCV (RBC) [Entitic vol] 90.6 fL 80.0 - 100.0 fL [facility] Comment on above: Repeated & verified Nucleated RBC (Bld) [#/Vol] 0 10*3/uL [facility] Nucleated RBC/100 WBC (Bld) [Ratio] 0 % [facility] Platelet mean volume (Bld) [Entitic vol] 9.9 fL 9.4 - 12.4 fL [facility] Platelets (Bld) [#/Vol] 144 10*3/uL Low [facility] RBC (Bld) [#/Vol] 3.85 10*6/uL Low [facility]alth WBC (Bld) [#/Vol] 3.23 10*3/uL Low [facility] 12 Leadon 03-15-2025 Atrial Rate 83 BPM [facility] P [place] 62 degrees [facility] P-R Interval 182 ms [facility] Q-T Interval 400 ms [facility] QRS Duration 92 ms [facility] QTC Calculation (Bezet) 470 ms [facility] R [place] 35 degrees [facility] T [place] 41 degrees [facility] Ventricular Rate [address] [facility] Sinus rhythm with Premature supraventricular complexes Otherwise normal ECG Confirmed by OTILIO MONTOYA M.D. ([id number]) on 03/15/2025 6:58:39 AM [facility] HEMOGLOBIN AND HEMATOCRITon 03-15-2025 Hematocrit (Bld) [Volume fraction] 31.0 % Low 41.0-53.0 [facility] Comment on above: Performed By: #### 4 [id number] #### [facility] [address] [place] [address] 36898 Emmanuel Plata M.D. [id number] Hemoglobin (Bld) [Mass/Vol] 12.4 g/dL Low 13.5-17.5 [facility] Comment on above: Performed By: #### 4 [id number] #### [facility] [address] [place] [address] 47656 Emmanuel Plata M.D. [id number] Hemoglobin and Hematocrit pa franklin (Bld)on 03-15-2025 Hematocrit (Bld) [Volume fraction] 31 % Low 41.0 - 53.0 % [facility] Hemoglobin (Bld) [Mass/Vol] 12.4 g/dL Low 13.5 - 17.5 g/dL [facility] Interpretation and review of laboratory results Abnormal [facility] MAGNESIUM LEVELon 03-15-2025 Magnesium [Mass/Vol] 2.2 mg/dL Normal 1.6-2.4 [facility] Comment on above: Performed By: #### 4 5113 #### [facility] [address] [address] Emmanuel Plata M.D. [id number] Magnesiumon 03-15-2025 Magnesium [Mass/Vol] 2.2 mg/dL 1.6 - 2 .4 mg/dL [facility] Magnesium [Mass/Vol]on 03-15 Interpretation and review of laboratory results Normal [facility] No Panel Informationon 03-15 [facility] Repeat EKGon 03-15-2025 Atrial Rate 93 BPM [facility] P-R Interval 170 ms [facility] Q-T Interval 404 ms [facility] QRS Duration 94 ms [facility] QTC Calculation (Bezet) 502 ms [facility] R [place] 49 degrees [facility] T [place] 44 degrees [facility] Ventricular Rate [address] [facility] Sinus rhythm with frequent Premature ventricular complexes Prolonged QT Abnormal ECG Confirmed by OTILIO MONTOYA M.D. ([id number]) on 03/15/2025 7:01:22 AM [facility] aPTT Coag (Bld) [Time]on Interpretation and review of laboratory results Normal [facility] Therapeutic range fo r APTT's is 68 - 104 seconds [facility] Basic metabolic 1998 panelOr dered By: Regina Dillon on 03-14-2025 Anion gap [Moles/Vol] 16 mmol/L 10 - 2 0 mmol/L [facility] Chloride [Moles/Vol] 102 mmol/L 98 - 10 8 mmol/L [facility] Creatinine [Mass/Vol] 1.12 mg/dL 0.80 - 1.30 mg/dL [facility] GFR/1.73 sq M.predicted CKD-EPI (S/P/Bld) [Vol rate/Area] 64 - PINF [facility] Comment on above: Estimated GFR was ca lculated using the 2020 CKD-EPI creatinine equation. Glucose [Mass/Vol] 100 mg/dL High 65 - 99 mg/dL [facility] HCO3 [Moles/Vol] 25 mmol/L 21 - 32 mmol/L [facility] Interpretation and review of laboratory results Abnormal [facility] Potassium [Moles/Vol] 3.8 mmol/L 3.5 - 5.1 mmol/L [facility] Sodium [Moles/Vol] 139 mmol/L 135 - 145 mmol/L [facility] Urea nitrogen [Mass/Vol] 20 mg/dL 8 - 25 mg/dL [facility] Urea nitrogen/Creatinine [Mass ratio] 17.9 mg/mg 10.0 - 20.0 [facility] has implemented the eGFR calculation approach that does not have a coefficient for race that conforms to the NKF-ASN Task Force Recommendations. [facility] CBC Auto Differentialon 02-25 Basophils (Bld) [#/Vol] 0.02 10*3/uL [facility] Basophils/100 WBC (Bld) 0.6 % [facility] Eosinophils (Bld) [#/Vol] 0.12 10*3/uL [facility] Eosinophils/100 WBC (Bld) 3.4 % [facility] Erythrocyte distribution width (RBC) [Entitic vol] 13.5 % 11.6 - 14.8 % [facility] Hematocrit (Bld) [Volume fraction] 39.3 % Low 41.0 - 53.0 % [facility] Hemoglobin (Bld) [Mass/Vol] 13.2 g/dL Low 13.5 - 17.5 g/dL [facility] Immature granulocytes (Bld) [#/Vol] 0.01 10*3/uL [facility] Immature granulocytes/100 WBC (Bld) 0.3 % [facility] Comment on above: The IG parameter is the percentage of metamyelocytes, myelocytes and promyelocytes. An immature granulocyte count (IG) of 1% or more suggests the possibility of infection, an IG count of 3% is very likely related to an infection. Interpretation and review of laboratory results Abnormal [facility] Lymphocytes (Bld) [#/Vol] 0.65 10*3/uL Low [facility] Lymphocytes/100 WBC (Bld) 18.6 % [facility] MCH (RBC) [Entitic mass] 30.4 pg 26.0 - 34.0 pg [facility] MCHC (RBC) [Mass/Vol] 33.6 g/dL 31.0 - 37.0 g/dL [facility] MCV (RBC) [Entitic vol] 90.6 fL 80.0 - 100.0 fL [facility] Monocytes (Bld) [#/Vol] 0.81 10*3/uL [facility] Monocytes/100 WBC (Bld) 23.1 % [facility] Neutrophils (Bld) [#/Vol] 1.89 10*3/uL [facility] Neutrophils/100 WBC (Bld) 54 % [facility] Comment on above: Peripheral smear rev iewed manually Nucleated RBC (Bld) [#/Vol] 0 10*3/uL [facility] Nucleated RBC/100 WBC (Bld) [Ratio] 0 % [facility] Platelet mean volume (Bld) [Entitic vol] 9.3 fL Low 9.4 - 12.4 fL [facility] Platelets (Bld) [#/Vol] 173 10*3/uL [facility] RBC (Bld) [#/Vol] 4.34 10*6/uL Low [facility]alth WBC (Bld) [#/Vol] 3.5 10*3/uL Low [facility] CBC WITH AUTO DIFFERENTIALon 03-14-2025 AUTO NRBC 0.0 % Normal [facility] Comment on above: Performed By: #### 4 1373 #### [facility] [address] [place] [address] Emmanuel Plata M.D. [id number] AUTO NRBC ABS COUNT 0.00 K/mcL Normal 0.00-0.00 [facility] Comment on above: Performed By: #### 4 [id number] #### [facility] [address] [place], [place] [address] Emmanuel Plata M.D. [id number] BASOPHILS ABSOLUTE COUNT 0.02 K/mcL Normal 0.00-0.30 [facility] Comment on above: Performed By: #### 4 5113 #### [facility] [address] [place], [place] [address] Emmanuel Plata M.D. [id number] Basophils/100 WBC (Bld) 0.6 % Normal [facility] Comment on above: Performed By: #### 4 8573 #### [facility] [address] [place], [place] [address] Emmanuel Plata M.D. [id number] Eosinophils (Bld) [#/Vol] 0.12 10*3/uL Normal 0.00-0.50 [facility] Comment on above: Performed By: #### 4 9773 #### [facility] [address] [place] [address] Emmanuel Plata M.D. [id number] Eosinophils/100 WBC (Bld) 3.4 % Normal [facility] Comment on above: Performed By: #### 4 5113 #### [facility] [address] [place] [address] Emmanuel Plata M.D. [id number] Erythrocyte distribution width (RBC) [Ratio] 13.5 % Normal 11.6-14.8 [facility] Comment on above: Performed By: #### 4 2713 #### [facility] [address] [place] [address] Emmanuel Plata M.D. [id number] Hematocrit (Bld) [Volume fraction] 39.3 % Low 41.0-53.0 [facility] Comment on above: Performed By: #### 4 7993 #### [facility] [address] [place] [address] Emmanuel Plata M.D. [id number] Hemoglobin (Bld) [Mass/Vol] 13.2 g/dL Low 13.5-17.5 [facility] Comment on above: Performed By: #### 4 5783 #### [facility] [address] [place] [address] Emmanuel Plata M.D. [id number] IG ABSOLUTE 0.01 K/mcL Normal 0.00-0.30 [facility] Comment on above: Performed By: #### 4 [id number] #### [facility] [address] [place] [address] Emmanuel Plata M.D. [id number] IG PERCENT 0.30 % Normal [facility] Comment on above: Result Comment: The IG parameter is the percentage of metamyelocytes, myelocytes and promyelocytes. An immature granulocyte count (IG) of 1% or more suggests the possibility of infection, an IG count of 3% is very likely related to an infection. Performed By: #### 4 [id number] #### [facility] [address] [place] [address] Emmanuel Plata M.D. [id number] Lymphocytes (Bld) [#/Vol] 0.65 10*3/uL Low 0.90-4.00 [facility] Comment on above: Performed By: #### 4 [id number] #### [facility] [address] [place] [address] Emmanuel Plata M.D. [id number] Lymphocytes/100 WBC (Bld) 18.6 % Normal [facility] Comment on above: Performed By: #### 4 [id number] #### [facility] [address] [place] [address] Emmanuel Plata M.D. [id number] MCH (RBC) [Entitic mass] 30.4 pg Normal 26.0-34.0 [facility] Comment on above: Performed By: #### 4 [id number] #### [facility] [address] [place] [address] Emmanuel Plata M.D. [id number] MCV (RBC) [Entitic vol] 90.6 fL Normal 80.0-100.0 [facility] Comment on above: Performed By: #### 4 [id number] #### [facility] [address] [place] [address] Emmanuel Plata M.D. [id number] MEAN CORPUSCULAR HEMOGLOBIN CONC 33.6 g/dL Normal 31.0-37.0 [facility] Comment on above: Performed By: #### 4 5083 #### [facility] [address] [place] [address] Emmanuel Plata M.D. [id number] Monocytes (Bld) [#/Vol] 0.81 10*3/uL Normal 0.30-0.90 [facility] Comment on above: Performed By: #### 4 [id number] #### [facility] [address] [place] [address] Emmanuel Plata M.D. [id number] Monocytes/100 WBC (Bld) 23.1 % Normal [facility] Comment on above: Performed By: #### 4 [id number] #### [facility] [address] [place] [address] Emmanuel Plata M.D. [id number] NEUTROPHILS ABSOLUTE COUNT 1.89 K/mcL Normal 1.70-7.00 [facility] Comment on above: Performed By: #### 4 0943 #### [facility] [address] [place], [place] [address] Emmanuel Plata M.D. [id number] Neutrophils/100 WBC (Bld) 54.0 % Normal [facility] Comment on above: Result Comment: Edna pheral smear reviewed manually Performed By: #### 4 2453 #### [facility] [address] [place] [address] Emmanuel Plata M.D. [id number] Platelet mean volume (Bld) [Entitic vol] 9.3 fL Low 9.4-12.4 [facility] Comment on above: Performed By: #### 4 2603 #### [facility] [address] [place] [address] Emmanuel Plata M.D. [id number] Platelets (Bld) [#/Vol] 173 10*3/uL Normal 150-400 [facility] Comment on above: Performed By: #### 4 3833 #### [facility] [address] [place] [address] Emmanuel Plata M.D. [id number] RBC (Bld) [#/Vol] 4.34 10*6/uL Low 4.50-5.90 [facility] Comment on above: Performed By: #### 4 5113 #### [facility] [address] [place] [address] Emmanuel Plata M.D. [id number] WBC (Bld) [#/Vol] 3.50 10*3/uL Low 4.50-11.00 [facility] Comment on above: Performed By: #### 4 5113 #### [facility] [address] [place] [address] Emmanuel Plata M.D. [id number] CHEM 703-14-2025 Anion gap [Moles/Vol] 16 mmol/L Normal 10-20 [facility] Comment on above: Order Comment: [facility] has implemented the eGFR calculation approach that does not have a coefficient for race that conforms to the NKF-ASN Task Force Recommendations. Performed By: #### 4 [id number] #### [facility] [address] [place] [address] Emmanuel Plata M.D. [id number] Chloride [Moles/Vol] 102 mmol/L Normal 98-108 [facility] Comment on above: Order Comment: [facility] has implemented the eGFR calculation approach that does not have a coefficient for race that conforms to the NKF-ASN Task Force Recommendations. Performed By: #### 4 [id number] #### [facility] [address] [place] [address] Emmanuel Plata M.D. [id number] Creatinine [Mass/Vol] 1.12 mg/dL Normal 0.80-1.30 [facility] Comment on above: Order Comment: [facility] has implemented the eGFR calculation approach that does not have a coefficient for race that conforms to the NKF-ASN Task Force Recommendations. Performed By: #### 4 [id number] #### [facility] [address] [place] [address] Emmanuel Plata M.D. [id number] EGFR 64 mL/min/1.73 m2 Normal >=60 [facility] Comment on above: Order Comment: [facility] has implemented the eGFR calculation approach that does not have a coefficient for race that conforms to the NKF-ASN Task Force Recommendations. Result Comment: Maria Del Carmen mated GFR was calculated using the 2020 CKD-EPI creatinine equation. Performed By: #### 4 [id number] #### [facility] [address] [place], [place] [address] Emmanuel Plata M.D. [id number] Glucose [Mass/Vol] 100 mg/dL High 65-99 [facility] Comment on above: Order Comment: [facility] has implemented the eGFR calculation approach that does not have a coefficient for race that conforms to the NKF-ASN Task Force Recommendations. Performed By: #### 4 [id number] #### [facility] [address] [place], [place] [address] Emmanuel Plata M.D. [id number] HCO3 (Bld) [Moles/Vol] 25 mmol/L Normal 21-32 [facility] Comment on above: Order Comment: [facility] has implemented the eGFR calculation approach that does not have a coefficient for race that conforms to the NKF-ASN Task Force Recommendations. Performed By: #### 4 [id number] #### [facility] [address] [place], [place] [address] Emmanuel Plata M.D. [id number] Potassium [Moles/Vol] 3.8 mmol/L Normal 3.5-5.1 [facility] Comment on above: Order Comment: [facility] has implemented the eGFR calculation approach that does not have a coefficient for race that conforms to the NKF-ASN Task Force Recommendations. Performed By: #### 4 [id number] #### [facility] [address] [place], [place] [address] Emmanuel Plata M.D. [id number] Sodium [Moles/Vol] 139 mmol/L Normal 135-145 [facility] Comment on above: Order Comment: [facility] has implemented the eGFR calculation approach that does not have a coefficient for race that conforms to the NKF-ASN Task Force Recommendations. Performed By: #### 4 [id number] #### [facility] [address] [place] [address] Emmanuel Plata M.D. [id number] Urea nitrogen [Mass/Vol] 20 mg/dL Normal 8-25 [facility] Comment on above: Order Comment: [facility] has implemented the eGFR calculation approach that does not have a coefficient for race that conforms to the NKF-ASN Task Force Recommendations. Performed By: #### 4 [id number] #### [facility] [address] [place] [address] Emmanuel Plata M.D. [id number] Urea nitrogen/Creatinine [Mass ratio] 17.9 mg/mg Normal 10.0-20.0 [facility] Comment on above: Order Comment: [facility] has implemented the eGFR calculation approach that does not have a coefficient for race that conforms to the NKF-ASN Task Force Recommendations. Performed By: #### 4 [id number] #### [facility] [address] [place] [address] Emmanuel Plata M.D. [id number] CONSULTon 03-14-2025 CONSULT -- Attestation signed by Ben Hahn MD at 03/14/2025 4:44 PM Interventional & Peripheral Vascular Cardiology Tristin Powell is a 85 y.o. male with a past medical history significant for CAD with prior CABG, hypertension, stage III CKD, hyperlipidemia, heart failure with preserved ejection fraction, paroxysmal atrial fibrillation, and advanced PAD who presents with Atkinson 4 critical limb threatening ischemia of the right lower extremity. I met the patient back in 2018 when he presented with left lower extremity pain with a known occlusion of his left SFA and popliteal artery. At that time he was referred for femoral-tibial bypass but unfortunately ultimately required a left transmetatarsal amputation which healed. He was known to have a total occlusion of his right popliteal artery at that time but unfortunately over the past 3 to 4 weeks, and even more intensely over the past 4 to 5 days he describes right lower extremity pain at rest. He underwent angiography 2 days ago in [place] where he was found to have progressive disease in his distal SFA and a known occlusion of his mid right popliteal artery with reconstitution of the peroneal vessel only. The SFA underwent balloon angioplasty to improve geniculate blood flow but unfortunately he remains extremely ischemic. His YAMILE 0.5 on the right lower extremity with flat transmetatarsal and toe waveforms. Past Medical History: Diagnosis Date Arthritis Avascular necrosis of bone of hip ([facility]) Claudication COPD (chronic obstructive pulmonary disease) ([facility]) Coronary artery disease Herpes zoster Hyperlipidemia Hypertension PAD (peripheral artery disease) ([facility]) 01/21/2022 Posterior tibial tendinitis of right leg 11/07/2022 Prostate cancer ([facility]) Vascular disease Allergies: Doxycycline and Gabapentin Current Medications[1] A&O x 3 NAD RRR no m/r/g CTAB S/NT/ND +BS Absent pedal pulses right lower extremity, ruborous and ischemic appearance, diminished sensation to touch but still with normal motor function ECG: Pending Outside angiogram: Reviewed by me, there is severe distal right SFA disease that was treated with angioplasty appropriately. The P2 segment of the popliteal artery is occluded which is chronic and there is faint reconstitution of the peroneal artery in the distal posterior tibial artery as it enters the foot. Impression: Atkinson 4 critical limb threatening ischemia Advanced peripheral artery disease Stage III CKD, stable Plan: I have reviewed his angiogram and YAMILE with our vascular team. Frankly, he has extremely poor options from the endovascular standpoint, and possibly even worse options surgically. The patient is already undergone minor amputation of the left lower extremity but unfortunately is clearly looking at major amputation of the right lower extremity without improvement in blood flow. He has a known thrombosed popliteal artery aneurysm which in 2021 by CTA appears to be around 10 to 12 mm in diameter. We discussed potential heroic attempt at revascularization which would almost certainly require direct access of the peroneal artery and retrograde wiring of his occluded popliteal artery. There is clearly a size discrepancy in the long-term durability is likely to be poor. All of this was discussed at length with the patient. He understands very well the generally poor options that we have before us. For now we will plan on bringing him into the hospital for admission and better pain control Continue unfractionated heparin for his paroxysmal atrial fibrillation We will discuss attempted revascularization early next week and further discussion with our vascular surgery colleagues I personally performed a [id number] diagnostic evaluation on this patient on the same calendar day as the YUE's evaluation (or within 24 hours of a resident's evaluation). I agree with the care plan documented by the YUE/resident with the following additions/comments provided above. Additionally, I have reviewed all relevant labs and studies related to this patient and provided my own interpretation of the relevant studies in my note above. Admitted with these risk variables:Chronic Kidney Disease. Please see assessment and plan for further details. [1] Current Facility-Administered Medications Medication Dose Route Frequency Provider Last Rate Last Admin acetaminophen (TYLENOL) tablet 650 mg 650 mg Oral Q4H While awake Muna Otto MD 650 mg at 03/14/25 1456 HYDROmorphone (DILAUDID) injection 0.5 mg 0.5 mg Intravenous Q3H PRN Muna Otto MD naloxone (NARCAN) injection 0.1 mg 0.1 mg Intravenous PRN Muna Otto MD And naloxone (NARCAN) injection 0.4 mg 0.4 mg Intravenous PRN Muna Otto MD ondansetron (ZOFRAN) injection 4 mg 4 mg Intravenous Q6H (more content not included)... Normal [facility] CONSULT -- Attestation signed by Mohsen Sarabia MD at 03/16/2025 10:33 AM Patient seen and examined. I have personally reviewed all pertinent labs, radiological studies and records. I have personally examined the patient and agree with resident/ARTIFICIAL [employer]OWER MAKER/PA assessment and plan with the following additional findings. Pt known to me with CLTI of the RLE with rest pain and early ischemic skin changes. Plan for R fem tib bypass on Monday for limb salvage VASCULAR SURGERY CONSULT Patient Name: Tristin Powell Reason for Consult: RLE rest pain ASSESSMENT AND PLAN Tristin Powell is a 85 y.o. male with history of arotic stenosis, HTN, dyslipidemia, HFpEF, ascending/thoracic aortic aneurysm (4.[address] dated 04/2024), CAD (NSTEMI; s/p 3v CABG), paroxysmal a.fib, aortic & mitral valve disease, COPD, CKD stage 3, PAD, s/p left fem to peroneal bypass (2018, [facility]), left TMA who presented to [facility] on 03/14/2025 with worsening RLE pain and discoloration. Arterial Duplex (03/14/25): 50-99% stenosis in the right mid SFA YAMILE's (03/14/25): Right YAMILE is 0.50. Left YAMILE is 0.55. CTLI IV Aortic Stenosis -Patient w/ notable history of PAD s/p left fem to peroneal bypass (2019, [facility]) p/w RLE rest pain x 3 days. Work up concerning for SFA stenosis, for which vascular surgery was consulted for. -Patient examined: HDS, AURELIANO, doppler signal present in R PT, foot warm, erythematous and swollen. -Imaging reviewed: As above. Rest of workup still pending. -Labs reviewed: WBC 3.5, Hgb 13.2 -Assessment: Patient's rest pain is likely due to underlying subacute worsening of his underlying PAD. Agree with medical admission, pain control and peripheral cardiology evaluation Plan -Admit to medicine -AC/AP per peripheral cardiology -No urgent surgical intervention indicated at this time -F/u PV cardiology c/s for angio -Vascular surgery will be available as needed -Further plans pending above work up -Discussed with Dr. Sarabia Beena Barraza MD General Surgery Resident, PGY-2 [facility] Please contact surgical editorial intern distribution designer 5PM-6AM and weekends - #[phone] VTS Pager - #[phone] Admitted with these risk variables:None. Please see assessment and plan for further details. HISTORY OF PRESENT ILLNESS Over last three weeks developed some numbness and burning in his right foot, which acutely worsened 5 days ago. It has since been constant, but very severe. Pain located in R foot and ankle. Patient also complains of redness from ankle down and blue/purple color changes in toes. Last dose of aspirin was 03/13/25 AM. Last dose of Xarelto was 03/13/25 AM, he was told to stop due to procedure and stopped afterward due to severe pain. Review of systems otherwise negative unless stated above. PAST MEDICAL, SURGICAL, FAMILY, SOCIAL HISTORY Past Medical History: Diagnosis Date Arthritis Avascular necrosis of bone of hip (H[facility]) Claudication COPD (chronic obstructive pulmonary disease) ([facility]) Coronary artery disease Herpes zoster Hyperlipidemia Hypertension PAD (peripheral artery disease) ([facility]) 01/21/2022 Posterior tibial tendinitis of right leg 11/07/2022 Prostate cancer ([facility]) Vascular disease Past Surgical History: Procedure Laterality Date 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/08/2018 Procedure: LEFT MIDFOOT AMPUTATION; Surgeon: Flynn Mann DPM; Location: [facility]; Service: Podiatry ANKLE SURGERY Left BYPASS PERONEAL FEMORAL Right 09/07/2018 Procedure: BYPASS PERONEAL FEMORAL, RIGHT SAPHENOUS VEIN HARVEST, COMPLETION ANGIOGRAM; Surgeon: Mohsen Sarabia MD; Location: [facility]; Service: Cardiovascular CARDIAC CATHETERIZATION Left 09/05/2018 Procedure: Angio Lower Extremity; Surgeon: Ben Hahn MD; 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; Service: Cardiovascular CARDIAC SURGERY 2017 triple bypass EGD N/A 10/10/2018 Procedure: ESOPHAGOGASTRODUODENOS COPY; Surgeon: Ben Jensen MD; Location: [facility]; Service: Gastroenterology EYE SURGERY Right 2015 FOOT SURGERY ORTHOPEDIC SURGERY STENT PLACEMENT Family History Problem Relation Age of Onset No Known Problems Mother Heart disease Father Prostate cancer Brother Cancer Paternal Aunt Social History [1] PHYSICAL EXAM VITALS BP (!) 159/69 (BP Location: Right arm, Patient Position: Sitting) Pulse 78 Temp 97.8 degrees F (36.6 degrees C) (Oral) Resp 18 Ht 6' 2 Wt 113.4 kg (250 lb) SpO2 94% BMI 32.10 kg/m PHYSICAL EXAM General: Awake and alert, no acute distress Head: Normocephalic, atraumatic Eyes: No scleral icterus, EOM grossly intact Neck: Trachea midline Cardiovascular: Hemodynamically stable, regular rate Pulmonary: Nonlabored breathing, equal chest rise Extremiti (more content not included)... Normal [facility] ED Prov Noteon 03-14-2025 ED Prov Note ED PROVIDER NOTE [facility] EMERGENCY DEPARTMENT Patient Name: Tristin Powell Age: 85 y.o. : 1940 ED Visit Date: 03/14/25 Chief Complaint Patient presents with - Leg Pain HPI / ROS 85-year-old male with history of peripheral artery disease and other medical problems who underwent bypass perineal femoral right saphenous vein with Dr. Sarabia in 2018 presents to the emergency department with complaints of right leg pain. He reports worsening pain to right lower extremity over the last 3 weeks. He has been taking Percocet with only minimal relief. He states it basically takes the edge off. He states this feels exactly like what went on with his left leg before he ended up requiring a midfoot amputation. He saw vascular surgery in office today and was referred down to the ED and advised to be hospitalized. He states he has been to be taking Xarelto but has only taken 1 dose in the last 3 days. He is also supposed be taking aspirin but admits he has not been taking that the last few days as well. He denies other acute complaints. MDM / ED Course On exam, patient is uncomfortable in appearance. IV was established and blood work sent to the lab. Patient was given Dilaudid for pain. Vascular surgery was consulted-they will come and evaluate the patient and determine whether he needs to be placed on heparin. They request that he be admitted to medical service. Laboratory studies include a chemistry significant only for glucose of 100. INR is 1.1. White count 3.5, hemoglobin 13.2 and platelets 175. ED Course as of 03/14/25 1327 MonMar 14, 2025 1326 Vascular surgery recommended PV cardiology consultation- I spoke with them in consult. They will see patient. [EK] ED Course User Index [EK] Elaine Macdonald MD [facility] Data: I saw and evaluated the patient. I reviewed the chief complaint, triage note, past medical/surgical, family, and social history. Discussed with staff/consultants. Shared decision making utilized. Social determinants of health impacted treatment/disposition. Clinical Impression: 1. Claudication 2. Right leg pain 3. Peripheral artery disease . ED Disposition ED Disposition Hospitalize Condition -- Comment Recommended Level of Care: Med Surg Phone call required?: No Patient's PCP: Flash Lovelace MD Follow-up Information Follow-up information has not been specified. Contact information for after-discharge care Follow-up information has not been specified. Physical Exam Patient Vitals for the past 24 hrs: BP Temp Temp src Pulse Resp SpO2 Height Weight 03/14/25 1110 129/64 97.7 degrees F (36.5 degrees C) Oral 75 16 95 % 6' 2 113.4 kg (250 lb) - Refer to [facility] section above for additional physical exam data. Physical Exam Vitals and nursing note reviewed. Constitutional: General: He is not in acute distress. Appearance: Normal appearance. He is normal weight. He is not ill-appearing or toxic-appearing. HENT: Head: Normocephalic and atraumatic. Musculoskeletal: General: Tenderness present. No swelling or deformity. Comments: AFO in place to left lower extremity. He reports transmetatarsal amputation to that foot. Right lower extremity with nonpalpable DP and PT pulse. I was able to Doppler a PT pulse that was faint. Unable to Doppler DP pulse. Patient with pain from knee down. Sensation diminished consistent with his history of neuropathy. Pulmonary: Effort: Pulmonary effort is normal. Skin: General: Skin is warm. Neurological: General: No focal deficit present. Mental Status: He is alert. Psychiatric: Mood and Affect: Mood normal. Review of Systems - Refer to HPI/ROS section above. - All systems reviewed and negative unless otherwise noted above. Past Medical, Surgical, Family, and Social History: Past Medical History: Diagnosis Date - Arthritis - Avascular necrosis of bone of hip ([facility]) - Claudication - COPD (chronic obstructive pulmonary disease) ([facility]) - Coronary artery disease - Herpes zoster - Hyperlipidemia - Hypertension - PAD (peripheral artery disease) ([facility]) 01/21/2022 - Posterior tibial tendinitis of right leg 11/07/2022 - Prostate cancer ([facility]) - Vascular disease Past Surgical History: Procedure Laterality Date - 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/08/2018 Procedure: LEFT MIDFOOT AMPUTATION; Surgeon: Flynn Mann DPM; Location: [facility]; Service: Podiatry - ANKLE SURGERY Left - BYPASS PERONEAL FEMORAL Right 09/07/2018 Procedure: BYPASS PERONEAL FEMORAL, RIGHT SAPHENOUS VEIN HARVEST, COMPLETION ANGIOGRAM; Surgeon: Mohsen Sarabia MD; Location: [facility]; Service: Cardiovascular - CARDIAC CATHETERIZATION Left 09/05/2018 Procedure: Angio Lower Extremity; Surgeon: Ben Hahn MD; 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 Normal [facility] 03-14-2025 Extra Tube Hold for add-ons. [facility] Comment on above: Auto resulted. [facility] 03-14-2025 Extra Tube Hold for add-ons. [facility] Comment on above: Auto resulted. INR Coag (PPP) [Relative abi e]on 03-14-2025 Interpretation and review of laboratory results Abnormal [facility] PT Coag (PPP) [Time] 14.6 s [facility] During the induction phase of oral anticoagulation, the INR may not reflect the anticoagulation status of the patient. Therapeutic ranges for INR's are: Most clinical situations: INR 2.0-3.0 Mechanical Prosthetic Valve: INR 2.5-3.5 Critical: INR >5.0 [facility] No Panel Informationon 03-14 [facility] PT/INRon 03-14-2025 INR Coag (PPP) [Relative time] 1.1 {INR} 0.8 - 1.1 [facility] INR Coag (PPP) [Relative time] 1.1 {INR} Normal 0.8-1.1 [facility] Comment on above: Order Comment: Rafita denise the induction phase of oral anticoagulation, the INR may not reflect the anticoagulation status of the patient. Therapeutic ranges for INR's are: Most clinical situations: INR 2.0-3.0 Mechanical Prosthetic Valve: INR 2.5-3.5 Critical: INR >5.0 Performed By: #### [id number] #### [facility] [address] [place] [id number] Emmanuel Plata M.D. [id number] PT Coag (PPP) [Time] 14.6 s High 11.8-14.3 [facility] Comment on above: Order Comment: Rafita denise the induction phase of oral anticoagulation, the INR may not reflect the anticoagulation status of the patient. Therapeutic ranges for INR's are: Most clinical situations: INR 2.0-3.0 Mechanical Prosthetic Valve: INR 2.5-3.5 Critical: INR >5.0 Performed By: #### [id number] #### [facility] [address] [place] [address] [id number] Emmanuel Plata M.D. [id number] US ANKLE/BRACHIAL INDICES EX TREMITY LIMITEDon 03-14-2025 US ANKLE/BRACHIAL INDICES EXTREMITY LIMITED Patient Info Name: Tristin Powell Age: 85 years : 1940 Gender: Male Exam Date: 03/14/2025 8:20 AM Patient Status: OUTPATIENT Site Location: [facility] Indications I73.9 - Peripheral vascular disease, unspecified Procedure Description 77633 Limited bilateral noninvasive physiologic studies of upper or lower extremity arteries with bidirectional Doppler/PVR waveform analysis at 1-2 levels. Slinger Sequins: Ernestina Campos RVT, RDMS Staff Ordering Physician: Mohsen Sarabia MD, RPVI Conclusions * Right and left ankle brachial indices indicate moderate peripheral artery disease. Right YAMILE is 0.50. Left YAMILE is 0.55. * Severe small vessel disease at the transmetatarsal level in the right foot. 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 * Right toe PPG waveform is absent. Toe brachial index is 0.0. Prior Study Date: 08/09/2023 Risk Factors Patient with a history of hypertension, hyperlipidemia, CAD and PAD. Segmental BP RIGHT Brachial A mmH RIGHT CMO & PRESIDENT mmH RIGHT CMO & PRESIDENT Index: 0.31 RIGHT DPA mmH RIGHT DPA Index: 0.50 RIGHT Digit mmH RIGHT YAMILE Index: 0.50 RIGHT TBI Index: 0.00 LEFT Brachial A mmH LEFT CMO & PRESIDENT Index: 0.40 LEFT CMO & PRESIDENT mmH LEFT DPA Index: 0.55 LEFT DPA mmH LEFT YAMILE Index: 0.55 Doppler RIGHT CMO & PRESIDENT Waveform: Monophasic RIGHT DPA Waveform: Monophasic LEFT CMO & PRESIDENT Waveform: Monophasic LEFT DPA Waveform: Biphasic , PVR RIGHT Ankle Grade: Abnormal RIGHT Transmetarsal Grade: Absent RIGHT Digit (PPG) Grade: Absent LEFT Ankle Grade: Abnormal Prior Interventions 09/07/2018 bypass graft- left fem-peroneal. Report Signatures Finalized by Radha Lomas DO, INOCENCIO, RPLUIZA, FSVM on 03/14/2025 11:55 AM [facility] [place] ANKLE/BRACHIAL INDICES EXTREMITY LIMITED Patient Info Name: Tristin Powell Age: 85 years : 1940 Gender: Male Exam Date: 03/14/2025 8:20 AM Patient Status: OUTPATIENT Site Location: [facility] Indications I73.9 - Peripheral vascular disease, unspecified Procedure Description 87274 Limited bilateral noninvasive physiologic studies of upper or lower extremity arteries with bidirectional Doppler/PVR waveform analysis at 1-2 levels. Slinger Sequins: Ernestina Campos RVT, [facility] Staff Ordering Physician: Mohsen Sarabia MD, RPLUIZA Conclusions * Right and left ankle brachial indices indicate moderate peripheral artery disease. Right YAMILE is 0.50. Left YAMILE is 0.55. * Severe small vessel disease at the transmetatarsal level in the right foot. 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 * Right toe PPG waveform is absent. Toe brachial index is 0.0. Prior Study Date: 08/09/2023 Risk Factors Patient with a history of hypertension, hyperlipidemia, CAD and PAD. Segmental BP RIGHT Brachial A mmH RIGHT CMO & PRESIDENT mmH RIGHT CMO & PRESIDENT Index: 0.31 RIGHT DPA mmH RIGHT DPA Index: 0.50 RIGHT Digit mmH RIGHT YAMILE Index: 0.50 RIGHT TBI Index: 0.00 LEFT Brachial A mmH LEFT CMO & PRESIDENT Index: 0.40 LEFT CMO & PRESIDENT mmH LEFT DPA Index: 0.55 LEFT DPA mmH LEFT YAMILE Index: 0.55 Doppler RIGHT CMO & PRESIDENT Waveform: Monophasic RIGHT DPA Waveform: Monophasic LEFT CMO & PRESIDENT Waveform: Monophasic LEFT DPA Waveform: Biphasic , PVR RIGHT Ankle Grade: Abnormal RIGHT Transmetarsal Grade: Absent RIGHT Digit (PPG) Grade: Absent LEFT Ankle Grade: Abnormal Prior Interventions 09/07/2018 bypass graft- left fem-peroneal. Report Signatures Finalized by Radha Lomas DO, INOCENCIO, RPVI, FS on 03/14/2025 11:55 AM Dictated by: RADHA SU on MonMar 14, 2025 11:55:02 AM EDT Transcribed by: RADHA SU on MonMar 14, 2025 11:55:02 AM EDT Finalized by: RADHA SU on MonMar 14, 2025 11:55:[address] [facility] US DUPLEX ARTERIAL LEG RIGHT on 03-14-2025 US DUPLEX ARTERIAL LEG RIGHT Patient Info Name: Tristin Powell Age: 85 years : 1940 Gender: Male Exam Date: 03/14/2025 8:20 AM Patient Status: OUTPATIENT Site Location: [facility] Indications I73.9 - Peripheral vascular disease, unspecified Procedure Description 50039 Duplex scan of lower extremity arteries or arterial bypass grafts using B-mode, color and spectral Doppler; unilateral or limited study. Slinger Sequins: Ernestina Campos RVT, RDAR Staff Ordering Physician: Mohsen Sarabia MD, RPLUIZA Conclusions * 50-99% stenosis in the right mid superficial femoral artery. * Unable to obtain right external iliac artery images due to bandaging from recent procedure. Risk Factors Patient with a history of hypertension, hyperlipidemia, CAD and PAD. Measurements RIGHT COMMERCIAL LOAN REVIEWER PSV (cm/s): 115 RIGHT COMMERCIAL LOAN REVIEWER EDV (cm/s): 7 RIGHT Prox PFA PSV [...] Distal LAUREL EDV (cm/s): 6 RIGHT Prox CMO & PRESIDENT PSV (cm/s): 81 RIGHT Prox CMO & PRESIDENT EDV (cm/s): 14 RIGHT Mid CMO & PRESIDENT PSV (cm/s): 38 RIGHT Mid CMO & PRESIDENT EDV (cm/s): 6 RIGHT Distal CMO & PRESIDENT PSV (cm/s): 57 RIGHT Distal CMO & PRESIDENT EDV (cm/s): 20 RIGHT Prox Gabriela PSV [...] Radha Lomas DO, RVT, RPVI, FSVM on 03/14/2025 11:57 AM [facility] US DUPLEX ARTERIAL LEG RIGHT Patient Info Name: Tristin Powell Age: 85 years : 1940 Gender: Male Exam Date: 03/14/2025 8:20 AM Patient Status: OUTPATIENT Site Location: [facility] Indications I73.9 - Peripheral vascular disease, unspecified Procedure Description 62861 Duplex scan of lower extremity arteries or arterial bypass grafts using B-mode, color and spectral Doppler; unilateral or limited study. Slinger Sequins: Ernestina Campos RVT, RDAR Staff Ordering Physician: Mohsen Sarabia MD, VI Conclusions * 50-99% stenosis in the right mid superficial femoral artery. * Unable to obtain right external iliac artery images due to bandaging from recent procedure. Risk Factors Patient with a history of hypertension, hyperlipidemia, CAD and PAD. Measurements RIGHT COMMERCIAL LOAN REVIEWER PSV (cm/s): 115 RIGHT COMMERCIAL LOAN REVIEWER EDV (cm/s): 7 RIGHT Prox PFA PSV [...] Distal LAUREL EDV (cm/s): 6 RIGHT Prox CMO & PRESIDENT PSV (cm/s): 81 RIGHT Prox CMO & PRESIDENT EDV (cm/s): 14 RIGHT Mid CMO & PRESIDENT PSV (cm/s): 38 RIGHT Mid CMO & PRESIDENT EDV (cm/s): 6 RIGHT Distal CMO & PRESIDENT PSV (cm/s): 57 RIGHT Distal CMO & PRESIDENT EDV (cm/s): 20 RIGHT Prox Gabriela PSV (cm/s): 46 RIGHT Prox Gabriela EDV (cm/s): 12 RIGHT Mid Gabriela PSV (cm/s): 52 RIGHT Mid Gabriela EDV (cm/s): 18 RIGHT Distal Gabriela PSV (cm/s): 59 RIGHT Distal Gabriela EDV (cm/s): 20 Measurements RIGHT YAMIEL Index: 0.50 LEFT YAMILE Index: 0.55 Prior Interventions 09/07/2018 Bypass graft - Left femoral - peroneal. Report Signatures Finalized by Radha Lomas DO, RVT, RPVI, FSVM on 03/14/2025 11:57 AM Dictated by: RADHA SU on MonMar 14, 2025 11:57:02 AM EDT Transcribed by: RADHA SU on MonMar 14, 2025 11:57:02 AM EDT Finalized by: RADHA SU on MonMar 14, 2025 11:57:[address] [facility] US SAPHENOUS VEIN MAPon 02-25 US SAPHENOUS VEIN MAP Patient Info Name: Tristin Powell Age: 85 years : 1940 Gender: Male Exam Date: 03/14/2025 9:26 PM Patient Status: INPATIENT Site Location: [facility] Indications Z01.810 - Encounter for preprocedural cardiovascular examination Procedure Description 16376 Duplex examination using B-mode, color and spectral Doppler of extremity veins including responses to compression and other maneuvers; complete bilateral study. Slinger Sequins: Cristian Ellis RVT, [facility] Staff Ordering Physician: Beena Barraza Conclusions * The right great saphenous vein [...] by Aaron Hein MD, RPVI on 03/16/2025 11:15 AM Dictated by: AARON HEIN on MonMar 16, 2025 11:15:31 AM EDT Transcribed by: AARON HEIN on MonMar 16, 2025 11:15:31 AM EDT Finalized by: AARON HEIN on MonMar 16, 2025 11:15:31 AM EDT [facility] US UE VEIN MAPon 03-14-2025 US UE VEIN MAP Patient Info Name: Tristin Powell Age: 85 years : 1940 Gender: Male Exam Date: 03/14/2025 9:20 PM Patient Status: INPATIENT Site Location: [facility] Z01.810 - Encounter for preprocedural cardiovascular examination Procedure Description 28363 Duplex examination using B-mode, color and spectral Doppler of extremity veins including responses to compression and other maneuvers; complete bilateral study. Slinger Sequins: Cristian Ellis RVLatricia, [facility] Staff Ordering Physician: Beena Barraza Conclusions * Right and left basilic and [...] Hein MD, RPVI on 03/16/2025 11:14 AM Dictated by: AARON HEIN on [place] Mar 16, 2025 11:14:40 AM EDT Transcribed by: AARON HEIN on [place] Mar 16, 2025 11:14:40 AM EDT Finalized by: AARON HEIN on [place] Mar 16, 2025 11:14:[address] [facility] Basic Metabolic Panelon 02-25 Creatinine Clr Calc Pharmacy 66.99 Normal [facility] Comment on above: Result Comment: PERF ORMED BY: [place] [id number] PATHOLOGIST TERMINOLOGIST MAXIM COELHO M.D. Performed By: #### B MP, CBC #### [facility] [address] [place] [address] GFR/1.73 sq M.predicted MDRD (S/P/Bld) [Vol rate/Area] mL/min/{1.73_m2} Normal [facility] Comment on above: Performed By: #### B MP, CBC #### [facility] [address] [place] [address] [place] Basophils [#/volume] in Bloo d by Automated countOrdered By: Duke Hector on 03-12-2025 Basophils (Bld) [#/Vol] 0.0 10*3/uL Normal 0.0-0.2 [facility] Comment on above: Result Comment: PERF ORMED BY: [place] [id number] PATHOLOGIST TERMINOLOGIST MAXIM COELHO M.D. Performed By: #### B MP, CBC #### [address] Basophils/100 leukocytes in Blood by Automated countOrdered By: Duke Hector on 03-12-2025 Basophils/100 WBC (Bld) 1.1 % Normal . [facility] Comment on above: Performed By: #### B MP, CBC #### [place] [address] [place] Calcium [Mass/volume] in Ser um or PlasmaOrdered By: Duke Hector on 03-12-2025 Calcium [Mass/Vol] 9.4 mg/dL Normal 8.6-10.3 [facility] Comment on above: Performed By: #### B MP, CBC #### [address] Carbon dioxide, total [Moles /volume] in Serum or PlasmaOrdered By: Duke Hector on 03-12-2025 CO2 [Moles/Vol] 26.4 mmol/L Normal 21.0-31.0 [facility] Comment on above: Performed By: #### B MP, CBC #### [place] [address] [place] Chloride [Moles/volume] in S roger or PlasmaOrdered By: Duke Hector on 03-12-2025 Chloride [Moles/Vol] 105 mmol/L Normal 98-107 [facility] Comment on above: Performed By: #### B MP, CBC #### [place] [address] [place] Complete Blood Count Auto Di ffon 03-12-2025 Mean Corpuscular HGB Conc 34.7 g/dL Normal 32.5-35.6 [facility] Comment on above: Performed By: #### B MP, CBC #### [address] [place] [address] [place] NRBC% 0.3 /100{WBC} Normal 0-0.5 [facility] Comment on above: Performed By: #### B MP, CBC #### [facility] [address] White Blood Count 2.4 [CFU]/mL Low 4.1-10.5 [facility] Comment on above: Performed By: #### B MP, CBC #### [address] Creatinine [Mass/volume] in Serum or PlasmaOrdered By: Duke Hector on 03-12-2025 Creatinine [Mass/Vol] 1.06 mg/dL Normal 0.70-1.30 [facility] Comment on above: Performed By: #### B MP, CBC #### [address] ECG 12 lead ECGon 03-12-2025 ECG 12 lead ECG [facility] [place] [address] [place] [address] Electrocardiograph Report Signed Patient: Tristin Powell MR#: [id number] : 1940 Acct:[id number] Age/Sex: 85 / M ADM Date: 03/12/25 Loc: [place] Room: Type: [facility] Attending Dr: Cristian Beaver MD Ordering Provider: Duke Hector MD Date of Service: 03/12/25 ECG/ECG 12 lead ECG: preop Copies to: Test Reason : Blood Pressure : */* mmHG Vent. Rate : 68 BPM Atrial Rate : 68 BPM P-R Int : 184 ms QRS Dur : 94 ms QT Int : 452 ms P-R-T Axes : 78 31 34 degrees QTcB Int : 480 ms Normal sinus rhythm Prolonged QT Abnormal ECG Confirmed by Mell Jackson ([id number]) on 03/13/2025 4:30:37 PM Referred By: Electronically Signed By: Mell Jackson Transcribed By: MUS Signed By Mell Jackson MD 5 1630 Normal [facility] Eosinophils [#/volume] in Bl ood by Automated countOrdered By: Duke Hector on 03-12-2025 Eosinophils (Bld) [#/Vol] 0.1 10*3/uL Normal 0.0-0.45 [facility] Comment on above: Performed By: #### B MP, CBC #### [facility] [address] Eosinophils/100 leukocytes i n Blood by Automated countOrdered By: Duke Hector on 03-12-2025 Eosinophils/100 WBC (Bld) 5.7 % Normal . [facility] Comment on above: Performed By: #### B MP, CBC #### [facility] [address] Erythrocyte distribution wid th [Ratio] by Automated countOrdered By: Duke Hector on 03-12-2025 Erythrocyte distribution width (RBC) [Ratio] 14.7 % Normal 12.0-14.8 [facility] Comment on above: Performed By: #### B MP, CBC #### [facility] [address] Erythrocytes [#/volume] in B lood by Automated countOrdered By: Duke Hector on 03-12-2025 RBC (Bld) [#/Vol] 4.29 10*6/uL Normal 3.90-5.60 [facility] Comment on above: Performed By: #### B MP, CBC #### [address] Glucose [Mass/volume] in Ser um or PlasmaOrdered By: Duke Hector on 03-12-2025 Glucose [Mass/Vol] 109 mg/dL High 70-100 [facility] Comment on above: ADA recommended refe rence rangeRandom Glucose Reference Range is dependent on time and content of last meal. Glucose of more than 200 mg/dL in a nonstressed, ambulatory subject supports the diagnosis of Diabetes Mellitus. Result Comment: [place] om Glucose Reference Range is dependent on time and content of last meal. Glucose of more than 200 mg/dL in a nonstressed, ambulatory subject supports the diagnosis of Diabetes Mellitus. ADA recommended reference range Performed By: #### B MP, CBC #### [facility] [address] Hematocrit [Volume Fraction] of Blood by Automated countOrdered By: Duke Hector on 03-12-2025 Hematocrit (Bld) [Volume fraction] 38.6 % Low 38.8-50.0 [facility] Comment on above: Performed By: #### B MP, CBC #### [facility] [address] Hemoglobin [Mass/volume] in BloodOrdered By: Duke Hector on 03-12-2025 Hemoglobin (Bld) [Mass/Vol] 13.4 g/dL Normal 13.0-17.0 [facility] Comment on above: Performed By: #### B MP, CBC #### [address] Leukocytes [#/volume] correc maximilian for nucleated erythrocytes in Blood by Automated counOrdered By: Duke Hector on 03-12-2025 WBC corrected for nucl RBC Auto (Bld) [#/Vol] 2.4 10*3/uL Low 4.1-10.5 [facility] Leukocytes [#/volume] in Blo od by Automated countOrdered By: Duke Hector on 03-12-2025 WBC (Bld) [#/Vol] 2.4 10*3/uL Low 4.1-10.5 [facility] Comment on above: Performed By: #### B MP, CBC #### [facility] [address] [place] [address] [place] Lymphocytes [#/volume] in Bl ood by Automated countOrdered By: Duke Hector on 03-12-2025 Lymphocytes (Bld) [#/Vol] 0.5 10*3/uL Low 1.00-4.8 [facility] Comment on above: Performed By: #### B MP, CBC #### [facility] [address] [place] [address] [place] Lymphocytes/100 leukocytes i n Blood by Automated countOrdered By: Duke Hector on 03-12-2025 Lymphocytes/100 WBC (Bld) 22.3 % Normal . [facility] Comment on above: Performed By: #### B MP, CBC #### [facility] [address] [place] [address] [place] MCH [Entitic mass] by Automa maximilian countOrdered By: Duke Hector on 03-12-2025 MCH (RBC) [Entitic mass] 31.2 pg Normal 27.5-35.2 [facility] Comment on above: Performed By: #### B MP, CBC #### [address] MCHC Auto (RBC) [Mass/Vol]Or dered By: Duke Hector on 03-12-2025 MCHC (RBC) [Mass/Vol] 34.7 g/dL 32.5-35.6 [facility] MCV [Entitic volume] by Auto mated countOrdered By: Duke Hector on 03-12-2025 MCV (RBC) [Entitic vol] 90.0 fL Normal 83.5-101 [facility] Comment on above: Performed By: #### B MP, CBC #### [place] [address] [place] Monocytes [#/volume] in Bloo d by Automated countOrdered By: Duke Hector on 03-12-2025 Monocytes (Bld) [#/Vol] 0.6 10*3/uL Normal 0.0-0.8 [facility] Comment on above: Performed By: #### B MP, CBC #### [place] [address] [place] Monocytes/100 leukocytes in Blood by Automated countOrdered By: Duke Hector on 03-12-2025 Monocytes/100 WBC (Bld) 23.1 % Normal . [facility] Comment on above: Performed By: #### B MP, CBC #### [place] [address] [place] Neutrophils [#/volume] in Bl ood by Automated countOrdered By: Duke Hector on 03-12-2025 Neutrophils (Bld) [#/Vol] 1.2 10*3/uL Low 1.8-7.7 [facility] Comment on above: Performed By: #### B MP, CBC #### [address] Neutrophils/100 leukocytes i n Blood by Automated countOrdered By: Duke Hector on 03-12-2025 Neutrophils/100 WBC (Bld) 47.8 % Normal . [facility] Comment on above: Performed By: #### B MP, CBC #### [address] No Panel InformationOrdered By: Duke Hector on 03-12-2025 Estimated GFR (CKD-EPI) > 60.0 mL/Min [facility] Creatinine Clearance (Chem 66.99 [facility] Nucleated erythrocytes [Pres ence] in Blood by Automated countOrdered By: Duke Hector on 03-12-2025 Nucleated RBC Auto Ql (Bld) 0.3 /100{WBC} 0-0.5 [facility] Platelet mean volume [Entiti c volume] in Blood by Automated countOrdered By: Duke Hector on 03-12-2025 Platelet mean volume (Bld) [Entitic vol] 7.6 fL Normal 6.6-10.1 [facility] Comment on above: Performed By: #### B MP, CBC #### [facility] [address] [place] [address] Platelets [#/volume] in Bloo d by Automated countOrdered By: Duke Hector on 03-12-2025 Platelets (Bld) [#/Vol] 166 10*3/uL Normal 150-450 [facility] Comment on above: Performed By: #### B MP, CBC #### [facility] [address] [place] [address] Potassium [Moles/volume] in Serum or PlasmaOrdered By: Duke Hector on 03-12-2025 Potassium [Moles/Vol] 4.4 mmol/L Normal 3.5-5.1 [facility] Comment on above: Performed By: #### B MP, CBC #### [address] Serum or plasma anion gap de terminationOrdered By: Duke Hector on 03-12-2025 Anion gap [Moles/Vol] 11.0 mmol/L Normal 6.0-15.0 [facility] Comment on above: Performed By: #### B MP, CBC #### [facility] [address] [place] [address] [place] Sodium [Moles/volume] in Ser um or PlasmaOrdered By: Duke Hector on 03-12-2025 Sodium [Moles/Vol] 138 mmol/L Normal 136-145 [facility] Comment on above: Performed By: #### B MP, CBC #### [facility] [address] [place] [id number] [place] Urea nitrogen [Mass/volume] in Serum or PlasmaOrdered By: Duke Hector on 03-12-2025 Urea nitrogen [Mass/Vol] 22 mg/dL Normal 7-25 [facility] Comment on above: Performed By: #### B MP, CBC #### [facility] [address] [place] [address] [place] CULTURE, URINE, ROUTINEon CULTURE, URINE, ROUTINE SEE NOTE Normal [facility] Comment on above: Result Comment: CULTURE, URINE, ROUTINE Micro Number: [id number] Test Status: Final Specimen Source: Urine Specimen Quality: Adequate Result: No Growth Performed By: #### 3 95 #### [facility] [address], [address] [place] [address] Antiquer: Gene Liang MD PSA, TOTALon 01-10-2025 PSA, TOTAL <0.04 Normal < OR = 4.00 [facility] Comment on above: Result Comment: The total PSA value from this assay system is standardized against the WHO standard. The test result will be approximately 20% lower when compared to the equimolar-standardized total PSA (Starr Dominguez). Comparison of serial PSA results should be interpreted with this fact in mind. This test was performed using the Siemens chemiluminescent method. Values obtained from different assay methods cannot be used interchangeably. PSA levels, regardless of value, should not be interpreted as absolute evidence of the presence or absence of disease. Performed By: #### 5 [id number] #### [facility] [address], [address] [place] [address] Antiquer: Gene Liang MD Urinalysis macro (dipstick) panel (U)on 01-09-2025 Bilirubin, UA Negative Negative - 4(70) +++ mg/dL [facility] Blood, UA Negative Negative - 50 Donovan/mcL [facility] Clarity, UA Clear [facility] Color, UA Light Yellow [facility] Glucose, UA Negative Negative - 1999(110) ++++ mg/dL [facility] Interpretation and review of laboratory results Normal [facility] Ketones, UA Negative Negative - 160(16) ++++ mg/dL [facility] Leukocytes, UA Negative Negative - 500+++ Adarsh/mcL [facility] Nitrite, UA Negative Negative - Positive [facility] pH, UA 7.5 5 - 9 [facility] Protein, UA Negative Negative - 1999(20) ++++ mg/dL [facility] Spec Grav, UA 1 1 - 1.03 [facility] Urobilinogen, UA 0.2 0.2 - 12 mg/dL [facility] [place] 12-18-2024 Follow-up visit [id number] Tristin Powell 1940 M Date Provider Department Center 12/18/2024 ELIEZER MIXON [facility] Te[facility] Family History Problem Relation Age of Onset Coronary artery disease Other Hyperlipidemia Other Hypertension Other Family Status - Relation Status Age at Other Level of Service:79827 CT OFFICE/OUTPATIENT ESTABLISHED LOW MDM 20 MIN Normal [facility] US ankle/arm indiceson 07-29 US ankle/[place] [address] Ultrasound Report Signed Patient: Tristin Powell MR#: [id number] : 1940 Acct:[id number] Age/Sex: 84 / M ADM Date: 07/29/24 Loc: [facility] Room: Type: [facility] Attending Dr: Cristian Beaver MD Ordering Provider: Cristian Beaver MD Date of Service: 07/29/24 US/US ankle/arm indices: I70.213 Copies to: Cristian Beaver MD LOWER EXTREMITY SEGMENTAL ARTERIAL DOPSCAN (PVR) INDICATION: Known peripheral vascular occlusive disease PROCEDURE: Right arm blood pressure is 171 , left is 158 . Pressures at the right ankle are 81 using the posterior tibial artery, and 96 using the dorsalis pedis artery with ankle-brachial index of 0.47 0.56 . Pressures at the left ankle are 144 using the posterior tibial artery, and 74 with ankle-brachial index of 0.84 0.43 . Wave forms by plethysmography are moderately blunted bilaterally US/US ankle/arm indices IMPRESSION: Moderate to severe peripheral vascular occlusive disease of the right lower extremity at rest. Mild to moderate peripheral vascular occlusive disease of the left lower extremity at rest. No significant change from prior studies of 2022 Impression dictated by: Cristian Beaver M.D.07/29/2024 11:33 AM Dictation Location: [place] [address] Tech: Vivianaalyssa Ríoser Transcribed By: VICENTE 07/29/24 1133 Dictated By: Cristian Beaver MD 07/29/24 1132 Signed By: 07/29/24 1133 Normal [facility] US arterial duplex [place] [address] 09-29-2023 US arterial duplex [facility] [address] [place] [address] Ultrasound Report Signed Patient: Tristin Powell MR#: [id number] : 1940 Acct:[id number] Age/Sex: 84 / M ADM Date: 07/29/24 Loc: [facility] Room: Type: [facility] Attending Dr: Cristian Beaver MD Ordering Provider: Cristian Beaver MD Date of Service: 07/29/24 US/US arterial duplex [facility]: I70.213 Copies to: Cristian Beaver MD Arterial duplex examination left leg bypass Indication for study: Follow-up femoral-popliteal bypass graft PROCEDURE: Color-flow duplex scanning is used to interrogate the patient's left lower extremity bypass graft. The inflow velocity in the left common femoral artery is 145 cm/s. The velocity of the proximal anastomosis is 155 cm/s. Velocities across the body the graft range from a low of 46 to a high of 102 cm/s and are biphasic or monophasic throughout. The graft is deep and difficult to interrogate especially in its distal component. No focal stenosis was noted. US/US arterial duplex LE LT IMPRESSION: Patent left femoral-popliteal bypass graft. Impression dictated by: Cristian Beaver M.D.07/29/2024 11:35 AM Dictation Location: [place] [address] Tech: Gaby Castro Transcribed By: VICENTE 07/29/24 1135 Dictated By: Cristian Beaver MD 07/29/24 1133 Signed By: 07/29/24 1135 Normal [facility] US carotid doppler BIon US carotid doppler BI [facility] [address] [place] [address] Ultrasound Report Signed Patient: Tristin Pwoell MR#: [id number] : 1940 Acct:[id number] Age/Sex: 84 / M ADM Date: 07/29/24 Loc: [facility] Room: Type: [facility] Attending Dr: Cristian Beaver MD Ordering Provider: Cristian Beaver MD Date of Service: 07/29/24 US/US carotid doppler BI: I65.23 Copies to: Cristian Beaver MD CAROTID DUPLEX INDICATION: Follow-up known carotid occlusive disease PROCEDURE: Color-flow duplex scanning is used to interrogate the extracranial carotid arterial system, as well as both vertebral arteries. Both carotid bifurcations show mild to moderate heterogeneous plaque formation. The proximal right internal carotid artery shows a highest peak systolic velocity of 166 cm/s with an end-diastolic velocity of 19.8 cm/s . The mid internal carotid artery measures 77.7 cm/s peak systolic and 16.2 cm/s end diastolic. The distal segment measures 80.8 cm/s peak systolic with an end diastolic velocity of 18 cm/s . The velocities of the right common carotid artery are 101 cm/s peak systolic and 11.8 cm/s end-diastolic proximally and 92.6 cm/s peak systolic and 8.08 cm/s end diastolic distally. The peak systolic velocity ratio of the internal to the common carotid artery is 1.79. The right external carotid artery measures 293 cm/s peak systolic. The right vertebral artery is patent at 70.8 cm/s with antegrade flow. The proximal left internal carotid artery shows a highest peak systolic velocity of 140 cm/s with an end-diastolic velocity of 32.9 cm/s . The mid internal carotid artery measures 117 cm/s peak systolic and 24.1 cm/s end diastolic. The distal segment measures 86.2 cm/s peak systolic with an end diastolic velocity of 16.5 cm/s . The velocities of the left common carotid artery are 88.2 cm/s peak systolic and 9.32 cm/s end-diastolic proximally and 77 cm/s peak systolic and 11.8 cm/s end diastolic distally. The peak systolic velocity ratio of the internal to the common carotid artery is 1.82 . The left external carotid artery measures 187 cm/s peak systolic. The left vertebral artery is patent at 57.8 cm/s with antegrade flow. US/US carotid doppler BI IMPRESSION: MILD TO MODERATE PLAQUE FORMATION IS NOTED BILATERAL EXTRACRANIAL CAROTID ARTERIES. MODERATE STENOSIS OF 50-69% WAS FOUND IN THE BILATERAL INTERNAL CAROTID ARTERIES. Impression dictated by: Cristian Beaver M.D.07/29/2024 11:31 AM Dictation Location: [id number] Tech: Gaby Castro Transcribed By: VICENTE 07/29/24 1131 Dictated By: Cristian Beaver MD 07/29/24 1130 Signed By: 07/29/24 1131 [facility]ician [facility] Office Visiton 07-22-2024 Follow-up visit [id number] Tristin Powell 1940 [facility] Provider Department [place] 07/22/2024 ELIEZER MIXON [facility] Family History Problem Relation Age of Onset Coronary artery disease Other Hyperlipidemia Other Hypertension Other Family Status - Relation Status Age at Other Level of Service:[address] CT OFFICE/OUTPATIENT ESTABLISHED LOW MDM 20 MIN [facility] 36on 07-18-2024 36 LM for patient to return my call. Normal [facility] 36on 07-17-2024 36 Please let him know his ECHO looked okay. Labs showed some mild elevation in inflammatory labs. Is he still experiencing chest pains? If so, we can try to start him on something short term to help. Thanks! Normal [facility] Telephoneon 07-17-2024 Telephone [id number] Tristin Powell 1940 M Date Provider Department Center 07/17/2024 [facility] Family History Problem Relation Age of Onset Coronary artery disease Other Hyperlipidemia Other Hypertension Other Family Status - Relation Status Age at Other Normal [facility] ALL BASIC METABOLIC PANELon 07-11-2024 Anion gap [Moles/Vol] 15.1 mmol/L [facility] Calcium [Mass/Vol] 8.9 mg/dL 8.5 - 10. 1 mg/dL [facility] Chloride [Moles/Vol] 108 mmol/L High 98 - 10 7 mmol/L [facility] CO2 [Moles/Vol] 27.3 mmol/L 21.0 - 32.0 mmol/L [facility] Creatinine [Mass/Vol] 1.32 mg/dL High 0.70 - 1.30 mg/dL [facility] GFR/1.73 sq M.predicted CKD-EPI (S/P/Bld) [Vol rate/Area] >60 >=60 mL/min/1.73m 2 [facility] Glucose [Mass/Vol] 94 mg/dL 74 - 106 mg/dL [facility] Interpretation and review of laboratory results Abnormal [facility] Potassium [Moles/Vol] 4.4 mmol/L 3.5 - 5.1 mmol/L [facility] Sodium [Moles/Vol] 146 mmol/L High 136 - 145 mmol/L [facility] TBH EGFR-NON AF FIJIAN 52 Low >=60 mL/min/1.73m 2 [facility] Urea nitrogen [Mass/Vol] 15 mg/dL 7.0 - 18.0 mg/dL [facility] Urea nitrogen/Creatinine [Mass ratio] 11.4 mg/mg [facility] CLINISYNC [facility] ALL CBC WITH AUTO DIFFon Erythrocyte distribution width (RBC) [Ratio] 13.9 % 11.0 - 15.0 % [facility] Hematocrit (Bld) [Volume fraction] 40.9 % Low 42.0 - 54.0 % [facility] Hemoglobin (Bld) [Mass/Vol] 13.9 g/dL Low 14.0 - 18.0 g/dL [facility] MCH (RBC) [Entitic mass] 31.1 pg 25.9 - 34.0 pg [facility] MCHC (RBC) [Mass/Vol] 34 g/dL 29.9 - 35.2 g/dL [facility] MCV (RBC) [Entitic vol] 91.5 fL 80.0 - 94.0 fL [facility] Platelet mean volume (Bld) [Entitic vol] 9.5 fL 9.5 - 13.5 fL [facility] TB PLT 169 [facility] TB RBC 4.47 Low [facility] TB WBC 3.3 Low [facility] ALL SED RATEon 07-11-2024 TBH SED RATE 20 NINF [facility] MHPT DIFFERENTIALon 07-11-20 24 BASOPHILS ABS MANUAL 0 [facility] BASOPHILS PERCENT MANUAL 0 % Low 0.2 - 2.0 % [facility] Eosinophils (Bld) [#/Vol] 0.13 10*3/uL [facility] EOSINOPHILS PERCENT MANUAL 4 % 0.9 - 7.0 % [facility] Lymphocytes (Bld) [#/Vol] 0.59 10*3/uL Low [facility] LYMPHOCYTES PERCENT MANUAL 18 % Low 20.5 - 60.0 % [facility] Monocytes (Bld) [#/Vol] 0.52 10*3/uL [facility] MONOCYTES PERCENT MANUAL 16 % High 1.7 - 12.0 % [facility] SEGMENTED NEUT ABSOLUTE MANUAL 2.04 [facility] SEGMENTED NEUTROPHILS % MANUAL 62 43.0 - 75.0 [facility] No Panel Informationon 07-11 Interpretation and review of laboratory results Abnormal [facility] HPon 07-10-2024 [facility] Cardiology Interv al Pre-procedural H&P H&P reviewed. The patient has been having episodes of chest pain and SOB. He refused stress test. Will proceed with RHC/Cors. The procedure was explained to the patient. The risks and benefits of the procedure were explained to the patient who showed understanding and with full capacity elected to proceed with the procedure. All questions were addressed and answered. Mabel Pino MD Project Administrative Assistant - PGY6 [facility] Subjective Tristin Powell is a 84 y.o. year old male patient being seen for 6 mo follow up CAD, PAD, AAA, HTN, and HLD. Had lipid panel Sep, 2023. [place] Problem [place] Patient Active Problem List Diagnosis Abdominal pain Chest pain Aortic valve regurgitation Mitral valve regurgitation Avascular necrosis of bone of hip (CMS/HCC) Community acquired pneumonia of left lower lobe of lung Contusion Hematoma of arm, left, initial encounter Coronary artery disease involving coronary bypass graft of [place] heart without angina pectoris Coronary artery disease involving [place] coronary artery of [place] heart without angina pectoris Coronary atherosclerosis Critical lower limb ischemia (CMS/HCC) Disorder of lipid metabolism Hypertensive disorder Herpes zoster Cellulitis Heartburn Gangrene of left foot (CMS/HCC) Peripheral arterial occlusive disease (CMS/HCC) Peripheral arterial disease (CMS/HCC) Inguinal pain Intermittent claudication (CMS/HCC) Hypercholesteremia Mixed hyperlipidemia Pure hypercholesterolemia Class 1 obesity with body mass index (BMI) of 31.0 to 31.9 in adult Obesity (BMI 30.0-34.9) Orthopnea Dyspnea Pain of left lower extremity Preinfarction syndrome (CMS/HCC) Prostate cancer (CMS/HCC) S/P total hip arthroplasty Pulmonary nodule S/P transmetatarsal amputation of foot, left (CMS/HCC) Snoring Thoracic aortic aneurysm without rupture (CMS/HCC) Posterior tibial tendinitis of right leg Insomnia Lumbosacral spondylosis without myelopathy AAA (abdominal aortic aneurysm) (CMS/HCC) Acute exacerbation of chronic obstructive pulmonary disease (CMS/HCC) Abnormal radiographic examination Acute on chronic heart failure with preserved ejection fraction (CMS/HCC) Arthritis Asthmatic bronchitis Carotid artery stenosis Cataract 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 Constipation Elevated erythrocyte sedimentation rate Flu vaccine need Impotence of organic origin Left sciatic nerve pain Neuropathy Other chronic pain Paresthesia of skin Paroxysmal atrial fibrillation (CMS/HCC) Phantom limb pain (CMS/HCC) Polymyalgia rheumatica (CMS/HCC) Primary osteoarthritis of right hip Routine general medical examination at health care facility Seasonal allergic rhinitis Sinusitis Stage 3a chronic kidney disease (CMS/HCC) Acute cystitis without hematuria Benign essential hypertension Other thrombophilia (CMS/HCC) Family History Family History Problem Relation Name Age of Onset Coronary artery disease Other Hyperlipidemia Other Hypertension Other Social History Social History Tobacco Use Smoking status: Never Smokeless tobacco: Never Substance Use Topics Alcohol use: Not Currently HPI Mr Powell is seen in follow up. He is a 83 yo man. He has history of CAD s/p multiple stenting in the past, last one in 04/2014 to the distal LAD instent restenosis. He then underwent CABG at [facility] in 2017 (CHAVEZ to diagonal, SVG to first OM, SVG to PDA), PAD s/p left femoral to Peroneal bypass 09/07/18 and s/p left midfoot amputation (2018) on Aspirin and Xarelto, Hypertension, HFpEF, COPD, and AAA. He has history of hypertension and hyperlipidemia on therapy. he has history of prostate cancer. today he is complaining of shortness of breath on exertion, NYHA class II symptoms. In addition he reports having had episodes of chest pain localized to the left side of the chest not related to exertion. In addition he had left shoulder pain as well as right shoulder pain that seems to have been related to upper extremity motion. He denies palpitations, syncope and significant lower extremity edema. His blood pressure is significantly elevated in the office repeated twice. He is possibly planned to undergo lower extremity bypass surgery due to severe peripheral vascular insufficiency. He will be undergoing venous mapping soon. 04/24/2024 His LAM is stable. Denies c/o chest pain. BP at home running 120-140s/60-70s. His vascular surgery was put on hold - he is unsure why. He tried amlodipine 10mg daily. He developed stomach pains and stopped taking and stomach pains resolved. He did not have lexiscan stress test done ordered by Dr. Carvalho as he reports having a bad reaction to his last stress test. We offered a dobutamine stress ECHO that could be (more content not included)... Normal [facility] NURSNOTEon 07-10-2024 ILIR Powell called stating he had a heart cath yesterday and he is having chest pain when he takes a deep breath and when he leans back. Chest pain is not severe. He asked if this was normal. Tia Vallejo CNP was notified. Per Tia Vallejo CNP. Lab orders of CBC, BMP, ESR and CRP. Limited Echo for chest pain R/O pericarditis. [facility] and labs done at [place]. Called Tristin Powell explaining need for echo and labs. Instructed to go to ER if chest pain worsens. Normal [facility] ALL BASIC METABOLIC PANELon 07-03-2024 Anion gap [Moles/Vol] 13.4 mmol/L [facility] Calcium [Mass/Vol] 9.8 mg/dL 8.5 - 10. 1 mg/dL [facility] Chloride [Moles/Vol] 106 mmol/L 98 - 10 7 mmol/L [facility] CO2 [Moles/Vol] 27.4 mmol/L 21.0 - 32.0 mmol/L [facility] Creatinine [Mass/Vol] 1.33 mg/dL High 0.70 - 1.30 mg/dL [facility] GFR/1.73 sq M.predicted CKD-EPI (S/P/Bld) [Vol rate/Area] >60 >=60 mL/min/1.73m 2 [facility] Glucose [Mass/Vol] 110 mg/dL High 74 - 106 mg/dL [facility] Interpretation and review of laboratory results Abnormal [facility] Potassium [Moles/Vol] 4.8 mmol/L 3.5 - 5.1 mmol/L [facility] Sodium [Moles/Vol] 142 mmol/L 136 - 145 mmol/L [facility] TBH EGFR-NON AF FIJIAN 51 Low >=60 mL/min/1.73m 2 [facility] Urea nitrogen [Mass/Vol] 16 mg/dL 7.0 - 18.0 mg/dL [facility] Urea nitrogen/Creatinine [Mass ratio] 12 mg/mg [facility] Orders Onlyon 07-02-2024 Orders Only [id number] Tristin Powell 1940 M Date Provider Department Center 07/02/2024 Beronica7-MAIA YE [facility] V[facility] Family History Problem Relation Age of Onset Coronary artery disease Other Hyperlipidemia Other Hypertension Other Family Status - Relation Status Age at Other Normal [facility] Orders Onlyon 06-11-2024 Orders Only [id number] Tristin Powell 1940 M Date Provider Department Center 06/11/2024 Jeannie-RUSSEL VALLEJO [facility] Family History Problem Relation Age of Onset Coronary artery disease Other Hyperlipidemia Other Hypertension Other Family Status - Relation Status Age at Other Normal [facility] 36on 05-31-2024 36 Please let him know that I discussed our plan with Dr. Carvalho, recommend proceeding with cardiac cath given the bump in his heart enzymes recently. We want to make sure nothing significant has changed. This will also help with planning any vascular surgery in the future. Thanks! Normal [facility] Telephoneon 05-31-2024 Telephone [id number] Tristin Powell 1940 M Date Provider Department Center 05/31/[address] Family History Problem Relation Age of Onset Coronary artery disease Other Hyperlipidemia Other Hypertension Other Family Status - Relation Status Age at Other Normal [facility] Office Visiton 05-28-2024 Follow-up visit [id number] Tristin Powell 1940 M Date Provider Department Center 05/28/2024 RUSSEL ADAIR Teodoro [facility] Family History Problem Relation Age of Onset Coronary artery disease Other Hyperlipidemia Other Hypertension Other Family Status - Relation Status Age at Other Level of Service:59642 CT OFFICE/OUTPATIENT ESTABLISHED MOD MDM 30 MIN Normal [facility] ALL MAGNESIUMon 05-14-2024 Magnesium [Mass/Vol] 2.1 mg/dL 1.6 - 2 .4 mg/dL [facility] Basic Metab w/rfx MGon 05-14 Anion gap [Moles/Vol] 10 mmol/L Normal 9-16 [facility] Comment on above: Performed By: #### T MARKI, CBC, MG, BMPX #### [facility] [address] [place] [address] [place] [address] Reel Cart Operator: Mary Astorga MD #### GLYHGB #### [facility] [address] [place] [address] [id number] Reel Cart Operator: Kale Orona MD BUN/CRE Ratio 16 Normal - [facility] Comment on above: Performed By: #### T MARKI, CBC, MG, BMPX #### [facility] [address] [place] [address] [place] [address] Reel Cart Operator: Mary Astorga MD #### GLYHGB #### [address] [id number] Reel Cart Operator: Kale Orona MD Calcium [Mass/Vol] 9.3 mg/dL Normal 8.6-10.4 [facility] Comment on above: Performed By: #### T ROPI, CBC, MG, BMPX #### [facility] [address] [address] Reel Cart Operator: Mary Astorga MD #### GLYHGB #### [address] [id number] Reel Cart Operator: Kale Orona MD Chloride [Moles/Vol] 106 mmol/L Normal 98-107 [facility] Comment on above: Performed By: #### T MARKI, CBC, MG, BMPX #### [facility] [address] [place] [address] [place] [address] Reel Cart Operator: Mary Astorga MD #### GLYHGB #### [address] [id number] Reel Cart Operator: Kale Orona MD CO2 [Moles/Vol] 23 mmol/L Normal 20-31 [facility] Comment on above: Performed By: #### T MARKI, CBC, MG, BMPX #### [address] [place] [address] Reel Cart Operator: Mary Astorga MD #### GLYHGB #### [address] [id number] Reel Cart Operator: Kale Orona MD Creatinine [Mass/Vol] 1.1 mg/dL Normal 0.70-1.20 [facility] Comment on above: Performed By: #### T ROPI, CBC, MG, BMPX #### [facility] [address] [place] [address] [place] [address] Reel Cart Operator: Mary Astorga MD #### GLYHGB #### [address] [id number] Reel Cart Operator: Kale Orona MD GFR/1.73 sq M.predicted among non-blacks MDRD (S/P/Bld) [Vol rate/Area] 65 mL/min/{1.73_m2} Normal >60 [facility] Comment on above: Result Comment: These results are not intended for use in patients <18 years of age. eGFR results are calculated without a race factor using the 2020 CKD-EPI equation. Careful clinical correlation is recommended, particularly when comparing to results calculated using previous equations. The CKD-EPI equation is less accurate in patients with extremes of muscle mass, extra-renal metabolism of creatine, excessive creatine ingestion, or following therapy that affects renal tubular secretion. Performed By: #### T YARIEL CBC, MG, BMPX #### [address] [place] [address] Reel Cart Operator: Mary Astorga MD #### GLYHGB #### [address] [address] Reel Cart Operator: Kale Orona MD Glucose [Mass/Vol] 90 mg/dL Normal 74-99 [facility] Comment on above: Performed By: #### NICOLE LEDEZMA, MG, BMPX #### [address] [place] [address] Reel Cart Operator: Mary Astorga MD #### GLYHGB #### [address] [id number] Reel Cart Operator: Kale Orona MD Potassium [Moles/Vol] 4.4 mmol/L Normal 3.7-5.3 [facility] Comment on above: Performed By: #### T NICOLE SALDIVAR, MG, BMPX #### [address] [place] [address] Reel Cart Operator: Mary Astorga MD #### GLYHGB #### [address] [id number] Reel Cart Operator: Kale Orona MD Sodium [Moles/Vol] 139 mmol/L Normal 136-145 [facility] Comment on above: Performed By: #### T YARIEL, CBC, MG, BMPX #### [facility] [address] [place], [place] [id number] Reel Cart Operator: Mary Astorga MD #### GLYHGB #### [address] [id number] Reel Cart Operator: Kale Orona MD Urea nitrogen [Mass/Vol] 18 mg/dL Normal 8-23 [facility] Comment on above: Performed By: #### T YARIEL, CBC, MG, BMPX #### [address] [place] [phone] Reel Cart Operator: Mary Astorga MD #### GLYHGB #### [place] [address] [place], [place] [id number] Reel Cart Operator: Kale Orona MD Brain Natri. Peptideon 05-14 Natriuretic peptide B (Bld) [Mass/Vol] 980 pg/mL High 0-450 [facility] Comment on above: Performed By: #### L IPR #### [address] [address] Reel Cart Operator: Kale Orona MD CBCon 05-14-2024 Erythrocyte distribution width (RBC) [Ratio] 14.8 % High 11.8-14.4 [facility] Comment on above: Performed By: #### T YARIEL, CBC, MG, BMPX #### [facility] [address] [place] [address] [place] [address] Reel Cart Operator: Mary Astorga MD #### GLYHGB #### [address] [address] Reel Cart Operator: Kale Orona MD Hematocrit (Bld) [Volume fraction] 38.8 % Low 40.7-50.3 [facility] Comment on above: Performed By: #### T ROPI, CBC, MG, BMPX #### [address] [place] [address] Reel Cart Operator: Mary Astorga MD #### GLYHGB #### [address] [id number] Reel Cart Operator: Kale Orona MD Hemoglobin (Bld) [Mass/Vol] 13.2 g/dL Normal 13.0-17.0 [facility] Comment on above: Performed By: #### T ROPI, CBC, MG, BMPX #### [address] [place] [address] Reel Cart Operator: Mary Astorga MD #### GLYHGB #### [address] [id number] Reel Cart Operator: Kale Orona MD MCH (RBC) [Entitic mass] 30.6 pg Normal 25.2-33.5 [facility] Comment on above: Performed By: #### T ROPI, CBC, MG, BMPX #### [address] [place] [address] Reel Cart Operator: Mary Astorga MD #### GLYHGB #### [address] [id number] Reel Cart Operator: Kale Orona MD MCHC (RBC) [Mass/Vol] 34.0 g/dL Normal 28.4-34.8 [facility] Comment on above: Performed By: #### T ROPI, CBC, MG, BMPX #### [address] [place] [address] Reel Cart Operator: Mary Astorga MD #### GLYHGB #### [address] [id number] Reel Cart Operator: Kale Orona MD MCV (RBC) [Entitic vol] 89.8 fL Normal 82.6-102.9 [facility] Comment on above: Performed By: #### T ROPI, CBC, MG, BMPX #### [address] [place] [address] Reel Cart Operator: Mary Astorga MD #### GLYHGB #### [place] [id number] Reel Cart Operator: Kale Orona MD NRBC Automated 0.0 per 100 WBC Normal 0.0 [facility] Comment on above: Performed By: #### T ROPI, CBC, MG, BMPX #### [address] [place] [address] Reel Cart Operator: Mary Astorga MD #### GLYHGB #### [place] [id number] Reel Cart Operator: Kale Orona MD Platelet mean volume (Bld) [Entitic vol] 9.8 fL Normal 8.1-13.5 [facility] Comment on above: Performed By: #### T MARKI, CBC, MG, BMPX #### [address] [place] [address] Reel Cart Operator: Mary Astorga MD #### GLYHGB #### [place] [id number] Reel Cart Operator: Kale Orona MD Platelets (Bld) [#/Vol] 153 10*3/uL Normal 138-453 [facility] Comment on above: Performed By: #### T ROPI, CBC, MG, BMPX #### [address] [place] [address] Reel Cart Operator: Mary Astorga MD #### GLYHGB #### [place] [id number] Reel Cart Operator: Kale Orona MD RBC (Bld) [#/Vol] 4.32 10*6/uL Normal 4.21-5.77 [facility] Comment on above: Performed By: #### T ROPI, CBC, MG, BMPX #### [facility] [address] [place] [address] Reel Cart Operator: Mary Astorga MD #### GLYHGB #### [facility] [address] [place], [place] [phone] Reel Cart Operator: Kale Orona MD WBC (Bld) [#/Vol] 4.0 10*3/uL Normal 3.5-11.3 [facility] Comment on above: Performed By: #### T MARKI, CBC, MG, BMPX #### [facility] [address] [place] [address] Reel Cart Operator: Mary Astorga MD #### GLYHGB #### [facility] [address] [place], [place] [phone] Reel Cart Operator: Kale Orona MD [facility] TROPONIN Ion 05-14-2024 Interpretation and review of laboratory results Abnormal [facility] TROPONIN, HIGH SENS 31 ng/L High 0 - 22 ng/L [facility] Comment on above: High Sensitivity Tro ponin values cannot be compared with other Troponin methodologies. [facility]HP BASIC METABOLIC PANEL R EFLEX MGon 05-14-2024 Anion gap [Moles/Vol] 10 mmol/L 9 - 16 mmol/L [facility] Calcium [Mass/Vol] 9.3 mg/dL 8.6 - 10. 4 mg/dL [facility] Chloride [Moles/Vol] 106 mmol/L 98 - 10 7 mmol/L [facility] CO2 [Moles/Vol] 23 mmol/L 20 - 31 mmol/L [facility] Creatinine [Mass/Vol] 1.1 mg/dL 0.70 - 1.20 mg/dL [facility] Glucose [Mass/Vol] 90 mg/dL 74 - 99 mg/dL [facility]IO 16 9 - 20 [facility] EGFR 65 - PINF [facility] Comment on above: These results are not intended for use in patients <18 years of age. eGFR results are calculated without a race factor using the 2020 CKD-EPI equation. Careful clinical correlation is recommended, particularly when comparing to results calculated using previous equations. The CKD-EPI equation is less accurate in patients with extremes of muscle mass, extra-renal metabolism of creatine, excessive creatine ingestion, or following therapy that affects renal tubular secretion. Potassium [Moles/Vol] 4.4 mmol/L 3.7 - 5.3 mmol/L [facility] Sodium [Moles/Vol] 139 mmol/L 136 - 145 mmol/L [facility] Urea nitrogen [Mass/Vol] 18 mg/dL 8 - 23 mg/dL [facility] Hemoglobin A1Con 05-14-2024 Glucose [Mass/Vol] 117 mg/dL Normal [facility] Comment on above: Result Comment: The ADA and AACC recommend providing the estimated average glucose result to permit better patient understanding of their HBA1c result. Performed By: #### T YARIEL, CBC, MG, BMPX #### [address] [place] [phone] Reel Cart Operator: Mary Astorga MD #### GLYHGB #### [place] [id number] [place] [address] Reel Cart Operator: Kale Orona MD HbA1c (Bld) [Mass fraction] 5.7 % Normal 4.0-6.0 [facility] Comment on above: Performed By: #### T YARIEL, CBC, MG, BMPX #### [address] [place] [phone] Reel Cart Operator: Mary Astorga MD #### GLYHGB #### [place] [id number] [place] [address] Reel Cart Operator: Kale Orona MD Lipid Profileon 05-14-2024 Cholesterol [Mass/Vol] 131 mg/dL Normal 0-199 [facility] Comment on above: Result Comment: Cholesterol Guidelines: <200 Desirable 200-240 Borderline >240 Undesirable Performed By: #### L IPR #### [facility] [address] [place] [address] Reel Cart Operator: Kale Orona MD Cholesterol in HDL [Mass/Vol] 41 mg/dL Normal >40 [facility] Comment on above: Result Comment: HDL Guidelines: <40 Undesirable 40-59 Borderline >59 Desirable Performed By: #### L IPR #### [facility] [address] [place] [address] Reel Cart Operator: Kale Orona MD Cholesterol in LDL [Mass/Vol] 73 mg/dL Normal 0-100 [facility] Comment on above: Result Comment: LDL Guidelines: <100 Desirable 100-129 Near to/above Desirable 130-159 Borderline >159 Undesirable Direct (measured) LDL and calculated LDL are not interchangeable tests. Performed By: #### L IPR #### [facility] [address] [place] [address] Reel Cart Operator: Kale Orona MD Cholesterol in VLDL [Mass/Vol] 17 mg/dL Normal [facility] Comment on above: Performed By: #### L IPR #### [facility] [address] [place] [address] Reel Cart Operator: Kale Orona MD Cholesterol.total/Chol esterol in HDL [Mass ratio] 3.0 {ratio} Normal [facility] Comment on above: Performed By: #### L IPR #### [facility] [address] [place] [address] Reel Cart Operator: Kale Orona MD Triglyceride [Mass/Vol] 85 mg/dL Normal <150 [facility] Comment on above: Result Comment: Triglyceride Guidelines: <150 Desirable 150-199 Borderline 200-499 High >499 Very high Based on AHA Guidelines for fasting triglyceride, May 2012. Performed By: #### L IPR #### [facility] [address] [place] [address] Reel Cart Operator: Kale Orona MD Magnesiumon 05-14-2024 Magnesium [Mass/Vol] 2.1 mg/dL Normal 1.6-2.4 [facility] Comment on above: Performed By: #### T ROPI, CBC, MG, BMPX #### [facility] [address] [place] [address] [place] [address] Reel Cart Operator: Mary Astorga MD #### GLYHGB #### [address] [id number] Reel Cart Operator: Kale Orona MD No Panel Informationon 05-14 Original Ordering Provider: RAFAELA Ontiveros CNP MELANI [facility] Troponinon 05-14-2024 Troponin, High Sens 28 ng/L High 0-22 [facility] Comment on above: Result Comment: High Sensitivity Troponin values cannot be compared with other Troponin methodologies. Performed By: #### L IPR #### [address] [phone] Reel Cart Operator: Kale Orona MD Troponin, High Sens 31 ng/L High 0-22 [facility] Comment on above: Result Comment: High Sensitivity Troponin values cannot be compared with other Troponin methodologies. Performed By: #### T ROPI, CBC, MG, BMPX #### [address] [place] [address] Reel Cart Operator: Mary Astorga MD #### GLYHGB #### [address] [phone] Reel Cart Operator: Kale Orona MD ALL PROTIME/INRon 05-13-2024 Interpretation and review of laboratory results Abnormal [facility] MHPT INR 1.2 [facility] Comment on above: Therapeutic Range: Moderate Anticoagulant Intensity: INR = 2.0-3.0 High Anticoagulant Intensity: INR = 2.5-3.5 [facility]PT PROTHROMBIN TIME 14.8 High [facility] Original Ordering Provider: RAFAELA Ontiveros CNP [facility] Basic Metab w/rfx MGon 05-13 Anion gap [Moles/Vol] 11 mmol/L Normal 9-16 [facility] Comment on above: Performed By: #### B MPX, PT, CBC #### [facility] [address] [place], [place] [phone] Reel Cart Operator: Mary Astorga MD BUN/CRE Ratio 16 Normal 9-20 [facility] Comment on above: Performed By: #### B MPX, PT, CBC #### [facility] [address] [place], [place] [phone] Reel Cart Operator: Mary Astorga MD Calcium [Mass/Vol] 9.5 mg/dL Normal 8.6-10.4 [facility] Comment on above: Performed By: #### B MPX, PT, CBC #### [facility] [address] [place], [place] [phone] Reel Cart Operator: Mary Astorga MD Chloride [Moles/Vol] 105 mmol/L Normal 98-107 [facility] Comment on above: Performed By: #### B MPX, PT, CBC #### [facility] [address] [place] [address] [place], [place] [phone] Reel Cart Operator: Mary Astorga MD CO2 [Moles/Vol] 23 mmol/L Normal 20-31 [facility] Comment on above: Performed By: #### B MPX, PT, CBC #### [facility] [address] [place] [address] [place]. [place], [place] [phone] Reel Cart Operator: Mary Astorga MD Creatinine [Mass/Vol] 1.0 mg/dL Normal 0.70-1.20 [facility] Comment on above: Performed By: #### B MPX, PT, CBC #### [facility] [address] [place], [place] [phone] Reel Cart Operator: Mary Astorga MD GFR/1.73 sq M.predicted among non-blacks MDRD (S/P/Bld) [Vol rate/Area] 73 mL/min/{1.73_m2} Normal >60 [facility] Comment on above: Result Comment: These results are not intended for use in patients <18 years of age. eGFR results are calculated without a race factor using the 2020 CKD-EPI equation. Careful clinical correlation is recommended, particularly when comparing to results calculated using previous equations. The CKD-EPI equation is less accurate in patients with extremes of muscle mass, extra-renal metabolism of creatine, excessive creatine ingestion, or following therapy that affects renal tubular secretion. Performed By: #### B MPX, PT, CBC #### [facility] [address] [place] [address] [place], [place] [phone] Reel Cart Operator: Mary Astorga MD Glucose [Mass/Vol] 96 mg/dL Normal 74-99 [facility] Comment on above: Performed By: #### B MPX, PT, CBC #### [address] [place], [place] [phone] Reel Cart Operator: Mary Astorga MD Potassium [Moles/Vol] 4.2 mmol/L Normal 3.7-5.3 [facility] Comment on above: Performed By: #### B MPX, PT, CBC #### [address] [place], [place] [phone] Reel Cart Operator: Mary Astorga MD Sodium [Moles/Vol] 139 mmol/L Normal 136-145 [facility] Comment on above: Performed By: #### B MPX, PT, CBC #### [address] [place], [place] [phone] Reel Cart Operator: Mary Astorga MD Urea nitrogen [Mass/Vol] 16 mg/dL Normal 8-23 [facility] Comment on above: Performed By: #### B MPX, PT, CBC #### [address] [place], [place] [phone] Reel Cart Operator: Mary Astorga MD CBCon 05-13-2024 Erythrocyte distribution width (RBC) [Ratio] 14.7 % High 11.8-14.4 [facility] Comment on above: Performed By: #### L IPR #### [address] [id number] Reel Cart Operator: Kale Orona MD Hematocrit (Bld) [Volume fraction] 40.3 % Low 40.7-50.3 [facility] Comment on above: Performed By: #### L IPR #### [address] [address] Reel Cart Operator: Kale Orona MD Hemoglobin (Bld) [Mass/Vol] 13.9 g/dL Normal 13.0-17.0 [facility] Comment on above: Performed By: #### L IPR #### [address] [address] Reel Cart Operator: Kale Orona MD MCH (RBC) [Entitic mass] 31.0 pg Normal 25.2-33.5 [facility] Comment on above: Performed By: #### L IPR #### [address] [address] Reel Cart Operator: Kale Orona MD MCHC (RBC) [Mass/Vol] 34.5 g/dL Normal 28.4-34.8 [facility] Comment on above: Performed By: #### L IPR #### [address] [address] Reel Cart Operator: Kale Orona MD MCV (RBC) [Entitic vol] 89.8 fL Normal 82.6-102.9 [facility] Comment on above: Performed By: #### L IPR #### [address] [address] Reel Cart Operator: Kale Orona MD NRBC Automated 0.0 per 100 WBC Normal 0.0 [facility] Comment on above: Performed By: #### L IPR #### [address] [address] Reel Cart Operator: Kale Orona MD Platelet mean volume (Bld) [Entitic vol] 9.8 fL Normal 8.1-13.5 [facility] Comment on above: Performed By: #### L IPR #### [place] [address] [place] [address] Reel Cart Operator: Kale Orona MD Platelets (Bld) [#/Vol] 154 10*3/uL Normal 138-453 [facility] Comment on above: Performed By: #### L IPR #### [facility] [address] [place] [address] Reel Cart Operator: Kale Orona MD RBC (Bld) [#/Vol] 4.49 10*6/uL Normal 4.21-5.77 [facility] Comment on above: Performed By: #### L IPR #### [address] [address] Reel Cart Operator: Kale Orona MD WBC (Bld) [#/Vol] 4.0 10*3/uL Normal 3.5-11.3 [facility] Comment on above: Performed By: #### L IPR #### [address] [address] Reel Cart Operator: Kale Orona MD PTon 05-13-2024 INR Coag (PPP) [Relative time] 1.2 {INR} Normal [facility] Comment on above: Result Comment: Therapeutic Range: Moderate Anticoagulant Intensity: INR = 2.0-3.0 High Anticoagulant Intensity: INR = 2.5-3.5 Performed By: #### B MPX, PT, CBC #### [facility] [address] [place] [address] [place] [address] Reel Cart Operator: Mary Astorga MD PT Coag (PPP) [Time] 14.8 s High 11.7-14.1 [facility] Comment on above: Performed By: #### B MPX, PT, CBC #### [facility] [address] [place] [address] Reel Cart Operator: Mary Astorga MD Troponinon 05-13-2024 Troponin, High Sens 26 ng/L High 0-22 [facility] Comment on above: Result Comment: High Sensitivity Troponin values cannot be compared with other Troponin methodologies. Performed By: #### T ROPI #### [facility] [address] [place] [address] Reel Cart Operator: Mary Astorga MD Brain Natri. Peptideon 05-12 Natriuretic peptide B (Bld) [Mass/Vol] 729 pg/mL High 0-450 [facility] Comment on above: Performed By: #### L IPR #### [address] [address] Reel Cart Operator: Kale Orona MD CBC with Diffon 05-12-2024 Abs. Basophil 0.03 k/uL Normal 0.00-0.20 [facility] Comment on above: Performed By: #### L IPR #### [address] [address] Reel Cart Operator: Kale Orona MD Abs.Imm.Granulocyte <0.03 Normal 0.00-0.30 [facility] Comment on above: Performed By: #### L IPR #### [address] [address] Reel Cart Operator: Kale Orona MD Abs.Neutrophil (Seg) 2.22 k/uL Normal 1.50-8.10 [facility] Comment on above: Performed By: #### L IPR #### [address] [address] Reel Cart Operator: Kale Orona MD Basophils/100 WBC (Bld) 1 % Normal 0-2 [facility] Comment on above: Performed By: #### L IPR #### [address] [address] Reel Cart Operator: Kale Orona MD Eosinophils (Bld) [#/Vol] 0.11 10*3/uL Normal 0.00-0.44 [facility] Comment on above: Performed By: #### L IPR #### [address] [address] Reel Cart Operator: Kale Orona MD Eosinophils/100 WBC (Bld) 3 % Normal 1-4 [facility] Comment on above: Performed By: #### L IPR #### [facility] [address] [place] [address] Reel Cart Operator: Kale Orona MD Erythrocyte distribution width (RBC) [Ratio] 14.7 % High 11.8-14.4 [facility] Comment on above: Performed By: #### L IPR #### [facility] [address] [place] [address] Reel Cart Operator: Kale Orona MD Hematocrit (Bld) [Volume fraction] 38.8 % Low 40.7-50.3 [facility] Comment on above: Performed By: #### L IPR #### [address] [address] Reel Cart Operator: Kale Orona MD Hemoglobin (Bld) [Mass/Vol] 13.3 g/dL Normal 13.0-17.0 [facility] Comment on above: Performed By: #### L IPR #### [facility] [address] [place] [address] Reel Cart Operator: Kale Orona MD Immature granulocytes/100 WBC (Bld) 1 % High 0 [facility] Comment on above: Performed By: #### L IPR #### [facility] [address] [place] [address] Reel Cart Operator: Kale Orona MD Lymphocytes (Bld) [#/Vol] 0.61 10*3/uL Low 1.10-3.70 [facility] Comment on above: Performed By: #### L IPR #### [facility] [address] [place] [address] Reel Cart Operator: Kale Orona MD Lymphocytes/100 WBC (Bld) 17 % Low 24-43 [facility] Comment on above: Performed By: #### L IPR #### [address] [address] Reel Cart Operator: Kale Orona MD MCH (RBC) [Entitic mass] 31.0 pg Normal 25.2-33.5 [facility] Comment on above: Performed By: #### L IPR #### [address] [address] Reel Cart Operator: Kale Orona MD MCHC (RBC) [Mass/Vol] 34.3 g/dL Normal 28.4-34.8 [facility] Comment on above: Performed By: #### L IPR #### [address] [address] Reel Cart Operator: Kale Orona MD MCV (RBC) [Entitic vol] 90.4 fL Normal 82.6-102.9 [facility] Comment on above: Performed By: #### L IPR #### [address] [address] Reel Cart Operator: Kale Orona MD Monocytes (Bld) [#/Vol] 0.59 10*3/uL Normal 0.10-1.20 [facility] Comment on above: Performed By: #### L IPR #### [address] [address] Reel Cart Operator: Kale Orona MD Monocytes/100 WBC (Bld) 17 % High 3-12 [facility] Comment on above: Performed By: #### L IPR #### [address] [address] Reel Cart Operator: Kale Orona MD Neutrophil (Seg) 61 % Normal 36-65 [facility] Comment on above: Performed By: #### L IPR #### [address] [address] Reel Cart Operator: Kale Orona MD NRBC Automated 0.0 per 100 WBC Normal 0.0 [facility] Comment on above: Performed By: #### L IPR #### [facility] [place] [address] Reel Cart Operator: Kale Orona MD Platelet mean volume (Bld) [Entitic vol] 9.3 fL Normal 8.1-13.5 [facility] Comment on above: Performed By: #### L IPR #### [facility] [address] [place] [address] Reel Cart Operator: Kale Orona MD Platelets (Bld) [#/Vol] 153 10*3/uL Normal 138-453 [facility] Comment on above: Performed By: #### L IPR #### [facility] [address] [place] [address] Reel Cart Operator: Kale Orona MD RBC (Bld) [#/Vol] 4.29 10*6/uL Normal 4.21-5.77 [facility] Comment on above: Performed By: #### L IPR #### [facility] [address] [place] [address] Reel Cart Operator: Kale Orona MD WBC (Bld) [#/Vol] 3.6 10*3/uL Normal 3.5-11.3 [facility] Comment on above: Performed By: #### L IPR #### [address] [address] Reel Cart Operator: Kale Orona MD CTA CHEST ABDOMEN PELVIS W [facility] 05-12-2024 CTA CHEST ABDOMEN PELVIS W CONTRAST EXAMINATION: CTA OF THE CHEST, ABDOMEN AND PELVIS WITH CONTRAST 05/12/2024 7:38 pm: TECHNIQUE: CTA of the chest, abdomen and pelvis was performed after the administration of intravenous contrast. Multiplanar reformatted images are provided for review. MIP images are provided for review. Automated exposure control, iterative reconstruction, and/or weight based adjustment of the mA/kV was utilized to reduce the radiation dose to as low as reasonably achievable. COMPARISON: None. HISTORY: ORDERING SYSTEM PROVIDED HISTORY: Chest pain suspect aortic dissection TECHNOLOGIST PROVIDED HISTORY: Chest pain suspect aortic dissection FINDINGS: CTA CHEST: Thoracic aorta: No evidence of thoracic aortic aneurysm or dissection. No acute abnormality of the aorta. Moderate aortic valvular calcification. Dilatation of the ascending thoracic aorta to 4.2 cm. Mediastinum: Scattered subcentimeter and pericentimeter short axis mediastinal lymph nodes.. The heart and pericardium demonstrate no acute abnormality. Status post CABG. Lungs/Pleura: The lungs are without acute process. No focal consolidation or pulmonary edema. No evidence of pleural effusion or pneumothorax. Mild emphysema. Part solid nodule of the left upper lobe measuring 1.2 cm with 0.6 cm solid component on series 3, image 43. Soft Tissues/Bones: No acute bone or soft tissue abnormality. CTA ABDOMEN/PELVIS: Abdominal aorta/Branches: No aneurysm or dissection. Organs: Liver is normal in contour and enhancement. Cholelithiasis. No biliary ductal dilatation. Pancreas, adrenals, kidneys, spleen are unremarkable. GI/Bowel: Colonic diverticulosis. Bowel is nondilated without wall thickening. Appendix is normal. Pelvis: Brachytherapy seeds throughout the prostate. Peritoneum/Retroperito neum: No free air, free fluid, organized fluid collection, lymphadenopathy. Bones/Soft Tissues: No acute bone or soft tissue abnormality. IMPRESSION: 1. No acute aortic syndrome. 2. Part solid nodule of the left upper lobe measuring 1.2 cm with 0.6 cm solid component. Recommendation below. 3. Cholelithiasis. RECOMMENDATIONS: Multiple pulmonary nodules. Most significant: Left part-solid pulmonary nodule within the upper lobe measuring 12 mm. Per Fleischner Society Guidelines, recommend a non-contrast Chest CT at 3-6 months. Subsequent management based on the most suspicious nodule(s). These guidelines do not apply to immunocompromised patients and patients with cancer. Follow up in patients with significant comorbidities as clinically warranted. For lung cancer screening, adhere to Lung-RADS guidelines. Reference: Radiology. 2017; 284(1):228-43. Interpreted by: Randall Almaraz MD Signed by: Randall Almaraz MD 05/12/24 Final result Normal [facility] Comp Metabolic Profon 2023 Albumin [Mass/Vol] 3.8 g/dL Normal 3.5-5.2 [facility] Comment on above: Performed By: #### L IPR #### [facility] [address] [place] [address] Reel Cart Operator: Kale Orona MD Albumin/Glob Ratio 1.5 Normal 1.0-2.5 [facility] Comment on above: Performed By: #### L IPR #### [address] [address] Reel Cart Operator: Kale Orona MD Alkaline Phos 92 U/L Normal 40-129 [facility] Comment on above: Performed By: #### L IPR #### [address] [address] Reel Cart Operator: Kale Orona MD ALT [Catalytic activity/Vol] 15 U/L Normal 10-50 [facility] Comment on above: Performed By: #### L IPR #### [address] [address] Reel Cart Operator: Kale Orona MD Anion gap [Moles/Vol] 11 mmol/L Normal 9-16 [facility] Comment on above: Performed By: #### L IPR #### [address] [address] Reel Cart Operator: Kale Orona MD AST [Catalytic activity/Vol] 24 U/L Normal 10-50 [facility] Comment on above: Performed By: #### L IPR #### [address] [address] Reel Cart Operator: Kale Orona MD Bilirubin [Mass/Vol] 0.6 mg/dL Normal 0.00-1.20 [facility] Comment on above: Performed By: #### L IPR #### [address] [address] Reel Cart Operator: Kale Orona MD BUN/CRE Ratio 17 Normal 9-20 [facility] Comment on above: Performed By: #### L IPR #### [address] [address] Reel Cart Operator: Kale Orona MD Calcium [Mass/Vol] 9.2 mg/dL Normal 8.6-10.4 [facility] Comment on above: Performed By: #### L IPR #### [facility] [place] [address] Reel Cart Operator: Kale Orona MD Chloride [Moles/Vol] 106 mmol/L Normal 98-107 [facility] Comment on above: Performed By: #### L IPR #### [facility] [address] [place] [address] Reel Cart Operator: Kale Orona MD CO2 [Moles/Vol] 22 mmol/L Normal 20-31 [facility] Comment on above: Performed By: #### L IPR #### [facility] [address] [place] [address] Reel Cart Operator: Kale Orona MD Creatinine [Mass/Vol] 1.1 mg/dL Normal 0.70-1.20 [facility] Comment on above: Performed By: #### L IPR #### [address] [address] Reel Cart Operator: Kale Orona MD GFR/1.73 sq M.predicted among non-blacks MDRD (S/P/Bld) [Vol rate/Area] 69 mL/min/{1.73_m2} Normal >60 [facility] Comment on above: Result Comment: These results are not intended for use in patients <18 years of age. eGFR results are calculated without a race factor using the 2020 CKD-EPI equation. Careful clinical correlation is recommended, particularly when comparing to results calculated using previous equations. The CKD-EPI equation is less accurate in patients with extremes of muscle mass, extra-renal metabolism of creatine, excessive creatine ingestion, or following therapy that affects renal tubular secretion. Performed By: #### L IPR #### [address] [address] Reel Cart Operator: Kale Orona MD Glucose [Mass/Vol] 127 mg/dL High 74-99 [facility] Comment on above: Performed By: #### L IPR #### [address] [place] [address] Reel Cart Operator: Kale Orona MD Potassium [Moles/Vol] 4.6 mmol/L Normal 3.7-5.3 [facility] Comment on above: Performed By: #### L IPR #### [facility] [address] [place] [address] Reel Cart Operator: Kale Orona MD Protein [Mass/Vol] 6.3 g/dL Low 6.6-8.7 [facility] Comment on above: Performed By: #### L IPR #### [facility] [address] [place] [address] Reel Cart Operator: Kale Orona MD Sodium [Moles/Vol] 139 mmol/L Normal 136-145 [facility] Comment on above: Performed By: #### L IPR #### [facility] [address] [place] [address] Reel Cart Operator: Kale Orona MD Urea nitrogen [Mass/Vol] 19 mg/dL Normal 8-23 [facility] Comment on above: Performed By: #### L IPR #### [facility] [address] [place] [address] Reel Cart Operator: Kale Orona MD Troponinon 05-12-2024 Troponin, High Sens 25 ng/L High 0-22 [facility] Comment on above: Result Comment: High Sensitivity Troponin values cannot be compared with other Troponin methodologies. Performed By: #### L IPR #### [facility] [address] [place] [address] Reel Cart Operator: Kale Orona MD Troponin, High Sens 26 ng/L High 0-22 [facility] Comment on above: Result Comment: High Sensitivity Troponin values cannot be compared with other Troponin methodologies. Performed By: #### L IPR #### [facility] [address] [place] [address] Reel Cart Operator: Kale Orona MD XR CHEST PORTABLEon 05-12-20 XR CHEST PORTABLE EXAMINATION: ONE XRAY VIEW OF THE CHEST 05/12/2024 5:34 pm COMPARISON: None. HISTORY: ORDERING SYSTEM PROVIDED HISTORY: chest pain TECHNOLOGIST PROVIDED HISTORY: chest pain FINDINGS: Status post median sternotomy. Mild bibasilar atelectasis, right slightly worse than left. The cardiac silhouette is within normal limits. No overt pulmonary edema. No other focal consolidation, pleural effusion or pneumothorax. The osseous structures are unremarkable. IMPRESSION: Mild bibasilar atelectasis. Interpreted by: Elyssa Pino MD Signed by: Elyssa Pino MD 05/12/24 Final result Normal [facility] Office Visiton 04-24-2024 Follow-up visit [id number] Tristin Powell 1940 M Date Provider Department Center 04/24/2024 [facility]SEL [facility] Family History Problem Relation Age of Onset Coronary artery disease Other Hyperlipidemia Other Hypertension Other Family Status - Relation Status Age at Other Level of Service:470[address] CT OFFICE/OUTPATIENT ESTABLISHED MOD MDM 30 MIN Normal [facility] Screenson 12-29-2023 Screens [id number] 0TIFF Normal [facility] Patient Educationon 12-26-19 Patient Education Oncology Prostate Cancer The prostate is a small gland that produces fluid that makes up semen (seminal fluid). It is located below the bladder in men, in front of the rectum. Prostate cancer is the abnormal growth of cells in the prostate gland. What are the causes? The exact cause of this condition is not known. What increases the risk? You are more likely to develop this condition if: ? You are 65 years of age or older. ? You have a family history of prostate cancer. ? You have a family history of breast and ovarian cancer. ? You have genes that are passed from parent to child (inherited), such as BRCA1 and BRCA2. ? You have Romero syndrome. men and men of descent are diagnosed with prostate cancer at higher rates than other men. The reasons for this are not well understood and are likely due to a combination of genetic and environmental factors. What are the signs or symptoms? Symptoms of this condition include: ? Problems with urination. This may include: ? A weak or interrupted flow of urine. ? Trouble starting or stopping urination. ? Trouble emptying the bladder all the way. ? The need to urinate more often, especially at night. ? Blood in urine or semen. ? Persistent pain or discomfort in the lower back, lower abdomen, or hips. ? Trouble getting an erection. ? Weakness or numbness in the legs or feet. How is this diagnosed? This condition can be diagnosed with: ? A digital rectal exam. For this exam, a health care provider inserts a gloved finger into the rectum to feel the prostate gland. ? A blood test called a prostate-specific antigen (PSA) test. ? A procedure in which a sample of tissue is taken from the prostate and checked under a microscope (prostate biopsy). ? An imaging test called transrectal ultrasonography. Once the condition is diagnosed, tests will be done to determine how far the cancer has spread. This is called staging the cancer. Staging may involve imaging tests, such as a bone scan, CT scan, PET scan, or MRI. Stages of prostate cancer The stages of prostate cancer are as follows: ? Stage 1 (I). At this stage, the cancer is found in the prostate only. The cancer is not visible on imaging tests, and it is usually found by accident, such as during prostate surgery. ? Stage 2 (II). At this stage, the cancer is more advanced than it is in stage 1, but the cancer has not spread outside the prostate. ? Stage 3 (III). At this stage, the cancer has spread beyond the outer layer of the prostate to nearby tissues. The cancer may be found in the seminal vesicles, which are near the bladder and the prostate. ? Stage 4 (IV). At this stage, the cancer has spread to other parts of the body, such as the lymph nodes, bones, bladder, rectum, liver, or lungs. Prostate cancer grading Prostate cancer is also graded according to how the cancer cells look under a microscope. This is called the Aleksandr score and the total score can range from 6?10, indicating how likely it is that the cancer will spread (metastasize) to other parts of the body. The higher the score, the greater the likelihood that the cancer will spread. ? Aleksandr 6 or lower: This indicates that the cancer cells look similar to normal prostate cells (well differentiated). ? [place] 7: This indicates that the cancer cells look somewhat similar to normal prostate cells (moderately differentiated). ? [place] 8, 9, or 10: This indicates that the cancer cells look very different than normal prostate cells (poorly differentiated). How is this treated? Treatment for this condition depends on several factors, including the stage of the cancer, your age, personal preferences, and your overall health. Talk with your health care provider about treatment options that are recommended for you. Common treatments include: ? Observation for early stage prostate cancer (active surveillance). This involves having exams, blood tests, and in some cases, more biopsies. For some men, this is the only treatment needed. ? Surgery. Types of surgeries include: ? Open surgery (radical prostatectomy). In this surgery, a larger incision is made to remove the prostate. ? A laparoscopic radical prostatectomy. This is a surgery to remove the prostate and lymph nodes through several small incisions. It is often referred to as a minimally invasive surgery. ? A robotic radical prostatectomy. This is laparoscopic surgery to remove the prostate and lymph nodes with the help of robotic arms that are controlled by the surgeon. ? Cryoablation. This is surgery to freeze and destroy cancer cells. ? Radiation treatment. Types of radiation treatment include: ? External beam radiation. This type aims beams of radiation from outside the body at the prostate to destroy cancerous cells. ? Brachytherapy. This type uses radioactive needles, seeds, wires, or tubes that are implanted into the prostate gland. Like external be (more content not included)... Normal [facility] Provider Letteron 12-26-2023 Provider Letter FLASH LOVELACE, [address] [place] [address] Re: TRISTIN POWELL Date of : [address] ALBANIA DIAZ, TRISTIN ALEMAN was evaluated at [facility] 12/26/2023 13:00:00 As this patient has been stable, they will be released back to your care. We request that you continue to check PSA annually due to history of prostate cancer treated with brachytherapy in 2009. Should the patient develop new symptoms, worsening condition, or abnormal imaging/labs in the future, do not hesitate to refer them back. Thanks! Provider Signature: Brenna Mosquera PA-C Physician Pollution Control Technician [facility] [address] [place] [address] Rey Briones [facility] Urology Office/Clinic Noteon 12-26-2023 Urology Office/Clinic Note Chief Complaint 1yr PSA HPI Staff 1yr PSA DX: Hx of Prostate Cancer, BPH & ED S/P Brachytherapy 2009 *No Uro Meds PSA 12/21/23- <0.13 1-2x/night. Ongoing for yrs. Not bothersome. Frequency during day varies with fluid intake. Denies complaints with urinary stream. No concerns at this time. Review of Systems PHQ Score Initial Depression Screen Score: 0 SCORE no fever, chills, malaise, myalgia. no rash/lesions. no chest pain, palpitations, or SOB. no abdominal pain, nausea, vomiting. no unilateral calf swelling, redness, pain Physical Exam Vitals & Measurements HR: 68(Peripheral) RR: 16 BP: 130/74 HT: 74 in HT: 188 cm WT: 108 kg WT: 237.6 lb BMI: 30.56 General: nontoxic, NAD Mouth: moist mucosa Lungs: normal respiratory effort Cardio: regular rate, good distal perfusion Abdomen: nondistended, no suprapubic distention or tenderness, no CVA tenderness Neurologic: Grossly normal Skin: No rashes or suspicious lesions Assessment/Plan UA completed in office today shows no microhematuria (trace-intact only. discussed this is often contamination. pt denies gross hematuria. does not wish to pursue additional eval at this time) or signs of infection. 1. H/O prostate cancer (Z85.46: Personal history of malignant neoplasm of prostate) s/p brachytherapy 2009 PSA 12/21/23 <0.13 which is low and stable. Ordered: Complex E&M Add on G2211 E&M of Est. Patient Low 20-29 Min 28329 Urnls Dip Stick Auto w/o Microscopy POC 14763 2. BPH with urinary obstruction (N40.1: Benign prostatic hyperplasia with lower urinary tract symptoms) IPSS 7 (5) QOL 1 Pt is currently taking no bladder/prostate medication and is highly satisfied with overall symptom control. No indication for treatment at this time. Continue to monitor. Ordered: Complex E&M Add on G2211 E&M of Est. Patient Low 20-29 Min 88806 3. Erectile dysfunction (N52.9: Male erectile dysfunction, unspecified) last ov: pt requesting sildenafil 100mg. was on it previously through another provider and worked well. 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 advised him to contact his warp tester and if they clear him then call us and I will prescribe it. today: pt never called after last ov. no concerns reported today. does not wish to pursue Sildenafil at this time. Ordered: Complex E&M Add on G2211 E&M of Est. Patient Low 20-29 Min 44410 Other obstructive and reflux uropathy (N13.8: Other obstructive and reflux uropathy) Offered continued scheduled follow up with our clinic vs following up PRN. Pt prefers the latter. We will ensure PCP continues to order annual PSA. Letter sent. Follow-up With When Contact Information BRENNA MOSQUERA PA-C, URL Only if needed [address] [place] [address] [facility] (1) Additional Instructions: Patient Education Prostate Cancer Problem List/Past Medical History Ongoing Anticoagulated Asymptomatic microscopic hematuria BPH with urinary obstruction Elevated PSA Erectile dysfunction H/O prostate cancer Hyperlipidemia Hypertension Nocturia Organic impotence Historical No qualifying data Procedure/Surgical History Cystoscope (10/05/2010), Brachytherapy (08/11/2010), Transrectal biopsy of prostate using ultrasound (US) guidance (06/25/2010), Amputation of left foot, Ankle Surgery, CABG - Coronary artery bypass graft, Placement of stent in cardiac conduit. Medications aspirin atorvastatin lisinopril losartan 25 mg Tab, Oral, Daily omeprazole 20 mg Cap-DR Percocet 2.5/325 oral tablet, 1 tab(s), Oral, q4hr, PRN Xarelto zolpidem 10 mg Tab, 10 mg= 1 tab(s), Oral, Once a day (at bedtime), PRN Allergies doxycycline (Unknown) oxyCODONE (Anaphylaxis) Social History Alcohol - Denies Alcohol Use, 07/04/2019 Tobacco Never (less than 100 in lifetime) Tobacco Use:. Never Smokeless Tobacco Use:. Household tobacco concerns: No. Yes, 12/26/2023 Family History Acute myocardial infarction: Mother and Father. Immunizations Vaccine Date Status Comments influenza virus vaccine, inactivated 06/06/2023 Recorded influenza virus vaccine, inactivated 05/31/2022 Recorded SARS-CoV-2 (COVID-19) mRNA-1273 vaccine 09/09/2021 Recorded influenza virus vaccine, inactivated 06/21/2021 Recorded SARS-CoV-2 (COVID-19) mRNA-1273 vaccine 10/28/2020 Recorded pneumococcal 23-valent vaccine 10/08/2020 Recorded SARS-CoV-2 (COVID-19) mRNA-1273 vaccine 09/30/2020 Recorded 2023-12-26: [id number] influenza virus vaccine, inactivated 06/02/2020 Recorded pneumococcal 13-valent vaccine 05/28/2020 Recorded influenza virus vaccine, inactivated 05/28/2020 Recorded diphtheria/pertussis, acel/tetanus adult 09/30/2019 Recorded influenza virus vaccine, inactivated 06/18/2019 Recorded influenza virus vaccine, inactivated 06/06/2018 Recorded influenza virus vaccine, inactivated 05/22/2017 Recorded pneumococcal 13-valent vaccine 05/18/2015 Recorded influenza virus vaccine, i (more content not included)... [facility] Comment on above: Result Comment: Elec tronically Signed By: BRENNA MOSQUERA PA-C\.br\Date and Time Signed: 12/26/23 13:33 EDT Lab Reportson 12-22-2023 Lab Reports [id number] 0TIFF [facility] Alanine aminotransferase [En zymatic activity/volume] in Serum or PlasmaOrdered By: Eliezer Carvalho on 10-17-2023 ALT [Catalytic activity/Vol] 15 U/L 7-52 [facility] Albumin [Mass/volume] in Ser um or Plasma by Bromocresol green (BCG) dye binding methoOrdered By: Eliezer Carvalho on 10-17-2023 Albumin BCG dye [Mass/Vol] 4.0 g/dL 3.5-5.7 [facility] Alkaline phosphatase [Enzyma tic activity/volume] in Serum or PlasmaOrdered By: Eliezer Carvalho on 10-17-2023 ALP [Catalytic activity/Vol] 72 U/L 34-104 [facility] Aspartate aminotransferase [ Enzymatic activity/volume] in Serum or PlasmaOrdered By: Eliezer Carvalho on 10-17-2023 AST [Catalytic activity/Vol] 21 U/L 13-39 [facility] Basophils Auto (Bld) [#/Vol] Ordered By: Eliezer Carvalho on 10-17-2023 Basophils (Bld) [#/Vol] 0.0 10*3/uL 0.0-0.2 [facility] Basophils/100 WBC Auto (Bld) Ordered By: Eliezer Carvalho on 10-17-2023 Basophils/100 WBC (Bld) 0.7 % . [facility] Bilirubin.total [Mass/volume ] in Serum or PlasmaOrdered By: Eliezer Carvalho on 10-17-2023 Bilirubin [Mass/Vol] 0.7 mg/dL 0.3-1.0 [facility] Calcium [Mass/volume] in Ser um or PlasmaOrdered By: Eliezer Carvalho on 10-17-2023 Calcium [Mass/Vol] 9.4 mg/dL 8.6-10.3 [facility] Carbon dioxide, total [Moles /volume] in Serum or PlasmaOrdered By: Eliezer Carvalho on 10-17-2023 CO2 [Moles/Vol] 24.6 mmol/L 21.0-31.0 [facility] Chloride [Moles/volume] in S roger or PlasmaOrdered By: Eliezer Carvalho on 10-17-2023 Chloride [Moles/Vol] 108 mmol/L 98-107 [facility] Cholesterol [Mass/volume] in Serum or PlasmaOrdered By: Eliezer Carvalho on 10-17-2023 Cholesterol [Mass/Vol] 142 mg/dL 140-200 [facility] Comment on above: Chol less than 200 m g/dl low riskChol 201-239 mg/dl borderline riskChol 240 mg/dl and greater high risk Cholesterol in LDL Calc [Mas s/Vol]Ordered By: Eliezer Carvalho on 10-17-2023 Cholesterol in LDL [Mass/Vol] 79 mg/dL 0-100 [facility] Comment on above: LDL ATP III CLASSIFI CATIONLDL less than 100 mg/dL OptimalLDL 100-129 mg/dL Near or above optimalLDL 130-159 mg/dL Borderline highLDL 160-189 mg/dL HighLDL greater than 189 mg/dL Very high Cholesterol in VLDL Calc [Ma ss/Vol]Ordered By: Eliezer Carvalho on 10-17-2023 Cholesterol in VLDL [Mass/Vol] 21 mg/dL [facility] Creatinine [Mass/volume] in Serum or PlasmaOrdered By: Eliezer Carvalho on 10-17-2023 Creatinine [Mass/Vol] 1.01 mg/dL 0.70-1.30 [facility] Eosinophils Auto (Bld) [#/Vo l]Ordered By: Eliezer Carvalho on 10-17-2023 Eosinophils (Bld) [#/Vol] 0.1 10*3/uL 0.0-0.45 [facility] Eosinophils/100 WBC Auto (Bl d)Ordered By: Eliezer Carvalho on 10-17-2023 Eosinophils/100 WBC (Bld) 3.4 % . [facility] Erythrocyte distribution wid th Auto (RBC) [Ratio]Ordered By: Eliezer Carvalho on 10-17-2023 Erythrocyte distribution width (RBC) [Ratio] 14.4 % 12.0-14.8 [facility] Globulin Calc (S) [Mass/Vol] Ordered By: Eliezer Carvalho on 10-17-2023 Globulin (S) [Mass/Vol] 2.6 g/dL [facility] Glucose [Mass/volume] in Ser um or PlasmaOrdered By: Eliezer Carvalho on 10-17-2023 Glucose [Mass/Vol] 82 mg/dL 70-100 [facility] Comment on above: ADA recommended refe rence rangeRandom Glucose Reference Range is dependent on time and content of last meal. Glucose of more than 200 mg/dL in a nonstressed, ambulatory subject supports the diagnosis of Diabetes Mellitus. Hematocrit Auto (Bld) [Volum e fraction]Ordered By: Eliezer Carvalho on 10-17-2023 Hematocrit (Bld) [Volume fraction] 39.3 % 38.8-50.0 [facility] Hemoglobin [Mass/volume] in BloodOrdered By: Eliezer Carvalho on 10-17-2023 Hemoglobin (Bld) [Mass/Vol] 13.5 g/dL 13.0-17.0 [facility] Leukocytes [#/volume] correc maximilian for nucleated erythrocytes in Blood by Automated counOrdered By: Eliezer Carvalho on 10-17-2023 WBC corrected for nucl RBC Auto (Bld) [#/Vol] 3.5 10*3/uL 4.1-10.5 [facility] Lymphocytes Auto (Bld) [#/Vo l]Ordered By: Eliezer Carvalho on 10-17-2023 Lymphocytes (Bld) [#/Vol] 0.8 10*3/uL 1.00-4.8 [facility] Lymphocytes/100 WBC Auto (Bl d)Ordered By: Eliezer Carvalho on 10-17-2023 Lymphocytes/100 WBC (Bld) 22.4 % . [facility] MCH Auto (RBC) [Entitic mass ]Ordered By: Eliezer Carvalho on 10-17-2023 MCH (RBC) [Entitic mass] 30.9 pg 27.5-35.2 [facility] MCHC Auto (RBC) [Mass/Vol]Or dered By: Eliezer Carvalho on 10-17-2023 MCHC (RBC) [Mass/Vol] 34.3 g/dL 32.5-35.6 [facility] MCV Auto (RBC) [Entitic vol] Ordered By: Eliezer Carvalho on 10-17-2023 MCV (RBC) [Entitic vol] 90.1 fL 83.5-101 [facility] Monocytes Auto (Bld) [#/Vol] Ordered By: Eliezer Carvalho on 10-17-2023 Monocytes (Bld) [#/Vol] 0.6 10*3/uL 0.0-0.8 [facility] Monocytes/100 WBC Auto (Bld) Ordered By: Eliezer Carvalho on 10-17-2023 Monocytes/100 WBC (Bld) 15.8 % . [facility] Neutrophils Auto (Bld) [#/Vo l]Ordered By: Eliezer Carvalho on 10-17-2023 Neutrophils (Bld) [#/Vol] 2.0 10*3/uL 1.8-7.7 [facility] Neutrophils/100 WBC Auto (Bl d)Ordered By: Eliezer Carvalho on 10-17-2023 Neutrophils/100 WBC (Bld) 57.7 % . [facility] No Panel InformationOrdered By: Eliezer Carvalho on 10-17-2023 Estimated GFR (CKD-EPI) > 60.0 mL/Min [facility] Creatinine Clearance (Chem N/A [facility] Nucleated erythrocytes [Pres ence] in Blood by Automated countOrdered By: Eliezer Carvalho on 10-17-2023 Nucleated RBC Auto Ql (Bld) 0.4 /100{WBC} 0-0.5 [facility] Platelet mean volume Auto (B ld) [Entitic vol]Ordered By: Eliezer Carvalho on 10-17-2023 Platelet mean volume (Bld) [Entitic vol] 7.8 fL 6.6-10.1 [facility] Platelets Auto (Bld) [#/Vol] Ordered By: Eliezer Carvalho on 10-17-2023 Platelets (Bld) [#/Vol] 170 10*3/uL 150-450 [facility] Potassium [Moles/volume] in Serum or PlasmaOrdered By: Eliezer Carvalho on 10-17-2023 Potassium [Moles/Vol] 4.7 mmol/L 3.5-5.1 [facility] Protein [Mass/volume] in Ser um or PlasmaOrdered By: Eliezer Carvalho on 10-17-2023 Protein [Mass/Vol] 6.6 g/dL 6.4-8.9 [facility] RBC Auto (Bld) [#/Vol]Ordere d By: Eliezer Carvalho on 10-17-2023 RBC (Bld) [#/Vol] 4.36 10*6/uL 3.90-5.60 [facility] Serum or plasma albumin/glob ulin mass ratioOrdered By: Eliezer Carvalho on 10-17-2023 Albumin/Globulin [Mass ratio] 1.5 {ratio} [facility] Serum or plasma anion gap de terminationOrdered By: Eliezer Carvalho on 10-17-2023 Anion gap [Moles/Vol] 11.1 mmol/L 6.0-15.0 [facility] Serum or plasma high density lipoprotein (HDL) cholesterol measurementOrdered By: Eliezer Carvalho on 10-17-2023 Cholesterol in HDL [Mass/Vol] 42 mg/dL 23-92 [facility] Comment on above: HDL CHOL ATP-III CLA SSIFICATION Cardiovascular RiskHDL > or equal to 60 mg/dL LOWHDL < 40 mg/dL HIGH Serum or plasma total choles terol/high density lipoprotein (HDL) cholesterol mass ratOrdered By: Eliezer Carvalho on 10-17-2023 Cholesterol.total/Chol esterol in HDL [Mass ratio] 3.4 {ratio} <5.0 [facility] Sodium [Moles/volume] in Ser um or PlasmaOrdered By: Eliezer Carvalho on 10-17-2023 Sodium [Moles/Vol] 139 mmol/L 136-145 [facility] Triglyceride [Mass/volume] i n Serum or PlasmaOrdered By: Eliezer Carvalho on 10-17-2023 Triglyceride [Mass/Vol] 105 mg/dL 0-149 [facility] Comment on above: TRIG ATP III CLASSIF ICATIONTRIG less than 150 mg/dL NormalTRIG 150-199 mg/dL Borderline highTRIG 200-500 mg/dL High TRIG greater than 500 mg/dL Very highStandard traceable to the Center for Disease Conrtrol and Prevention (CDC) test method. Urea nitrogen [Mass/volume] in Serum or PlasmaOrdered By: Eliezer Carvalho on 10-17-2023 Urea nitrogen [Mass/Vol] 15 mg/dL 7-25 [facility] WBC Auto (Bld) [#/Vol]Ordere d By: Eliezer Carvalho on 10-17-2023 WBC (Bld) [#/Vol] 3.5 10*3/uL 4.1-10.5 [facility] Creatinine [Mass/volume] in Serum or PlasmaOrdered By: Cristian Beaver on 10-12-2023 Creatinine [Mass/Vol] 1.11 mg/dL 0.70-1.30 [facility] No Panel InformationOrdered By: Cristian Beaver on 10-12-2023 Estimated GFR (CKD-EPI) > 60.0 mL/Min [facility] Creatinine Clearance (Chem 64.55 [facility] Urea nitrogen [Mass/volume] in Serum or PlasmaOrdered By: Cristian Beaver on 10-12-2023 Urea nitrogen [Mass/Vol] 18 mg/dL 7 [facility] PROF CHEM 8 (BAS METB)on Anion gap [Moles/Vol] 10.5 mmol/L Normal [facility] Comment on above: Performed By: #### B MP #### [facility] [address] [address] [address] Benedict Edmondson Calcium [Mass/Vol] 9.5 mg/dL Normal 8.5-10.1 [facility] Comment on above: Performed By: #### B MP #### [facility] Laboratory [address] [place] [address] Dr. Benedict Edmondson Chloride [Moles/Vol] 106 mmol/L Normal 98-107 [facility] Comment on above: Performed By: #### B MP #### [facility] [address] [address] [address] Benedict Edmondson CO2 [Moles/Vol] 28.8 mmol/L Normal 21.0-32.0 [facility] Comment on above: Performed By: #### B MP #### [facility] [address] [address] [address] Benedict Edmondson Creatinine [Mass/Vol] 1.28 mg/dL Normal 0.70-1.30 [facility] Comment on above: Performed By: #### B MP #### [facility] [address] [address] [address] Benedict Edmondson EGFR-AF FIJIAN >60 Normal >=60 [facility] Comment on above: Performed By: #### B MP #### [facility] [address] [address] [address] Benedict Edmondson EGFR-NON AF FIJIAN 54 mL/min/1.73m2 Critically low >=60 [facility] Comment on above: Performed By: #### B MP #### [facility] [address] [place] [address] Dr. Benedict Edmondson Glucose [Mass/Vol] 97 mg/dL Normal 74-106 [facility] Comment on above: Performed By: #### B MP #### [facility] [address] [address] [address] Benedict Edmondson Potassium [Moles/Vol] 4.3 mmol/L Normal 3.5-5.1 [facility] Comment on above: Performed By: #### B MP #### [facility] [address] [address] [address] Benedict Edmondson Sodium [Moles/Vol] 141 mmol/L Normal 136-145 [facility] Comment on above: Performed By: #### B MP #### [facility] [address] [address] [address] Benedict Edmondson Urea nitrogen [Mass/Vol] 17.0 mg/dL Normal 7.0-18.0 [facility] Comment on above: Performed By: #### B MP #### [facility] [address] [address] [address] Benedict Edmondson Urea nitrogen/Creatinine [Mass ratio] 13.3 mg/mg Normal [facility] Comment on above: Performed By: #### B MP #### [facility] [address] [address] [address] Benedict Edmondson PROF 14(COMP METB)on 023 Albumin [Mass/Vol] 3.1 g/dL Critically low 3.4-5.0 [facility] Comment on above: Performed By: #### C MP #### [facility] [address] [place] [address] Dr. Benedict Edmondson Albumin/Globulin [Mass ratio] 0.8 {ratio} Normal [facility] Comment on above: Performed By: #### C MP #### [facility] [address] [address] [address] Benedict Edmondson ALP [Catalytic activity/Vol] 83 U/L Normal 46-116 [facility] Comment on above: Performed By: #### C MP #### [facility] [address] [address] [address] Benedict Edmondson ALT [Catalytic activity/Vol] 29 U/L Normal 16-63 [facility] Comment on above: Performed By: #### C MP #### [facility] [address] [address] [address] Benedict Edmondson Anion gap [Moles/Vol] 12.9 mmol/L Normal Th [facility] Comment on above: Performed By: #### C MP #### [facility] [address] [address] [address] Benedict Edmondson AST [Catalytic activity/Vol] 31 U/L Normal 15-37 [facility] Comment on above: Performed By: #### C MP #### [facility] [address] [address] [address] Benedict Edmondson Bilirubin [Mass/Vol] 1.0 mg/dL Normal 0.2-1.0 [facility] Comment on above: Performed By: #### C MP #### [facility] [address] [address] [address] Benedict Edmondson Calcium [Mass/Vol] 9.2 mg/dL Normal 8.5-10.1 [facility] Comment on above: Performed By: #### C MP #### [facility] [address] [address] [address] Benedict Edmondson Chloride [Moles/Vol] 102 mmol/L Normal 98-107 [facility] Comment on above: Performed By: #### C MP #### [facility] [address] [address] [address] Benedict Edmondson CO2 [Moles/Vol] 27.0 mmol/L Normal 21.0-32.0 [facility] Comment on above: Performed By: #### C MP #### [facility] [address] [address] [address] Benedict Edmondson Creatinine [Mass/Vol] 2.03 mg/dL Critically high 0.70-1.30 [facility] Comment on above: Performed By: #### C MP #### [facility] [address] [address] [address] Benedict Edmondson EGFR-AF FIJIAN 38 mL/min/1.73m2 Critically low >=60 [facility] Comment on above: Performed By: #### C MP #### [facility] [address] [address] [address] Benedict Edmondson EGFR-NON AF FIJIAN 32 mL/min/1.73m2 Critically low >=60 [facility] Comment on above: Performed By: #### C MP #### [facility] [address] [address] [address] Benedict Edmondson Globulin (S) [Mass/Vol] 3.8 g/dL Normal [facility] Comment on above: Performed By: #### C MP #### [facility] [address] [address] [address] Benedict Edmondson Glucose [Mass/Vol] 94 mg/dL Normal 74-106 [facility] Comment on above: Performed By: #### C MP #### [facility] [address] [address] [address] Benedict Edmondson Potassium [Moles/Vol] 4.9 mmol/L Normal 3.5-5.1 [facility] Comment on above: Performed By: #### C MP #### [facility] [address] [address] [address] Benedict Edmondson Protein [Mass/Vol] 6.9 g/dL Normal 6.4-8.2 [facility] Comment on above: Performed By: #### C MP #### [facility] [address] [address] [address] Benedict Edmondson Sodium [Moles/Vol] 137 mmol/L Normal 136-145 [facility] Comment on above: Performed By: #### C MP #### [facility] [address] [address] [address] Benedict Edmondson Urea nitrogen [Mass/Vol] 34.0 mg/dL Critically high 7.0-18.0 [facility] Comment on above: Performed By: #### C MP #### [facility] [address] [address] [address] Benedict Edmondson Urea nitrogen/Creatinine [Mass ratio] 16.7 mg/mg Normal [facility] Comment on above: Performed By: #### C MP #### [facility] [address] [address] [address] Benedict Edmondson Bacteria identified Cx Nom ( Bld)on 11-08-2022 Interpretation and review of laboratory results Normal [facility] CBC Auto Differentialon 10-26 Basophils (Bld) [#/Vol] 0.02 10*3/uL [facility] Basophils/100 WBC (Bld) 0.4 % [facility] Eosinophils (Bld) [#/Vol] 0.21 10*3/uL [facility] Eosinophils/100 WBC (Bld) 3.9 % [facility] Erythrocyte distribution width (RBC) [Entitic vol] 13.4 % 11.6 - 14.8 % [facility] Hematocrit (Bld) [Volume fraction] 33.6 % Low 41.0 - 53.0 % [facility] Hemoglobin (Bld) [Mass/Vol] 11.5 g/dL Low 13.5 - 17.5 g/dL [facility] Immature granulocytes (Bld) [#/Vol] 0.02 10*3/uL [facility] Immature granulocytes/100 WBC (Bld) 0.40 % [facility] Comment on above: The IG parameter is the percentage of metamyelocytes, myelocytes and promyelocytes. An immature granulocyte count (IG) of 1% or more suggests the possibility of infection, an IG count of 3% is very likely related to an infection. Interpretation and review of laboratory results Abnormal [facility] Lymphocytes (Bld) [#/Vol] 0.62 10*3/uL Low [facility] Lymphocytes/100 WBC (Bld) 11.4 % [facility] MCH (RBC) [Entitic mass] 30.7 pg 26.0 - 34.0 pg [facility] MCHC (RBC) [Mass/Vol] 34.2 g/dL 31.0 - 37.0 g/dL [facility] MCV (RBC) [Entitic vol] 89.8 fL 80.0 - 100.0 fL [facility] Monocytes (Bld) [#/Vol] 0.78 10*3/uL [facility] Monocytes/100 WBC (Bld) 14.4 % [facility] Neutrophils (Bld) [#/Vol] 3.78 10*3/uL [facility] Neutrophils/100 WBC (Bld) 69.5 % [facility] Nucleated RBC (Bld) [#/Vol] 0.00 10*3/uL [facility] Nucleated RBC/100 WBC (Bld) [Ratio] 0.0 % [facility] Platelet mean volume (Bld) [Entitic vol] 9.7 fL 9.4 - 12.4 fL [facility] Platelets (Bld) [#/Vol] 170 10*3/uL [facility] RBC (Bld) [#/Vol] 3.74 10*6/uL Low [facility] ealth WBC (Bld) [#/Vol] 5.43 10*3/uL [facility] Laboratory - Microbiology an d Antimicrobial susceptibilityon 11-08-2022 Bacteria identified Cx Nom (Bld) No [facility] Magn[facility] Levelon 11-08-2022 Magnesium [Mass/Vol] 2.3 mg/dL 1.6 - 2 .4 mg/dL [facility] Magnesium [Mass/Vol]on 11-08 Interpretation and review of laboratory results Normal [facility] Renal function 2000 panelon 11-08-2022 Albumin [Mass/Vol] 3.3 g/dL 3.2 - 5.2 g/dL [facility] Anion gap [Moles/Vol] 13 mmol/L 10 - 2 0 mmol/L [facility] Calcium [Mass/Vol] 9.3 mg/dL 8.4 - 10. 2 mg/dL [facility] Chloride [Moles/Vol] 104 mmol/L 98 - 10 8 mmol/L [facility] Creatinine [Mass/Vol] 1.16 mg/dL 0.80 - 1.30 mg/dL [facility] GFR/1.73 sq M.predicted CKD-EPI (S/P/Bld) [Vol rate/Area] 62 - PINF [facility] Comment on above: Estimated GFR was ca lculated using the 2020 CKD-EPI creatinine equation. Glucose [Mass/Vol] 114 mg/dL High 65 - 99 mg/dL [facility] HCO3 [Moles/Vol] 24 mmol/L 21 - 32 mmol/L [facility] Interpretation and review of laboratory results Abnormal [facility] Phosphate [Mass/Vol] 2.7 mg/dL 2.3 - 3 .7 mg/dL [facility] Potassium [Moles/Vol] 4.1 mmol/L 3.5 - 5.1 mmol/L [facility] Sodium [Moles/Vol] 137 mmol/L 135 - 145 mmol/L [facility] Urea nitrogen [Mass/Vol] 24 mg/dL 8 - 25 mg/dL [facility] Urea nitrogen/Creatinine [Mass ratio] 20.7 mg/mg High 10.0 - 20.0 [facility] has implemented the eGFR calculation approach that does not have a coefficient for race that conforms to the NKF-ASN Task Force Recommendations. [facility] XR Chest 1 Viewon 11-08-2022 1. Prior median sternotomy from CABG as well as prior coronary artery stenting noted. Heart size is mildly enlarged. Changes from atherosclerosis are also again noted. 2. 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 3. Background sequela of old healed granulomatous disease with bilateral subcentimeter calcified granulomas also noted. 4. Architectural distortion with atelectatic/fibrotic changes in the distribution of the middle lobe, lingula and left lower lobe are noted. 5. No sizable effusion, dense consolidation, edema, failure, pneumothorax or acute osseous change otherwise suspected. [employer] Workstation ID: [id number] [employer] EXAMINATION: XR CHEST PA/AP 11/08/2022 8:22 AM HISTORY: ORDERING SYSTEM PROVIDED HISTORY: pneumonia, TECHNOLOGIST PROVIDED HISTORY: Illness/Other Reason for exam: pneumonia Cancer History: unk Surgery, RadiationHistory: YES Encounter Type: Unknown Additional signs and symptoms: ORDERING SYSTEM PROVIDED DIAGNOSIS CODES: J18.9 Community acquired pneumonia of left lower lobe of lung R77.8 Elevated troponin R60.9 Peripheral edema COMPARISON: CT pulmonary angiogram 11/03/2022. FINDINGS: A total of two images were obtained. [employer] Romulo Case M D - 11/08/2022 EXAMINATION: XR CHEST PA/AP 11/08/2022 8:22 AM HISTORY: ORDERING SYSTEM PROVIDED HISTORY: pneumonia, TECHNOLOGIST PROVIDED HISTORY: Illness/Other Reason for exam: pneumonia Cancer History: unk Surgery, RadiationHistory: YES Encounter Type: Unknown Additional signs and symptoms: ORDERING SYSTEM PROVIDED DIAGNOSIS CODES: J18.9 Community acquired pneumonia of left lower lobe of lung R77.8 Elevated troponin R60.9 Peripheral edema COMPARISON: CT pulmonary angiogram 11/03/2022. FINDINGS: A total of two images were obtained. IMPRESSION: 1. Prior median sternotomy from CABG as well as prior coronary artery stenting noted. Heart size is mildly enlarged. Changes from atherosclerosis are also again noted. 2. 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 3. Background sequela of old healed granulomatous disease with bilateral subcentimeter calcified granulomas also noted. 4. Architectural distortion with atelectatic/fibrotic changes in the distribution of the middle lobe, lingula and left lower lobe are noted. 5. No sizable effusion, dense consolidation, edema, failure, pneumothorax or acute osseous change otherwise suspected. [facility] Workstation ID: [id number] [facility] Radiology Study observation (narrative) [facility] XR Chest 1 ViewOrdered By: Larisa Case on 11-08-2022 [facility] Work Phone: CBC Auto Differentialon 10-26 Basophils (Bld) [#/Vol] 0.02 10*3/uL [facility] Basophils/100 WBC (Bld) 0.3 % [facility] Eosinophils (Bld) [#/Vol] 0.18 10*3/uL [facility] Eosinophils/100 WBC (Bld) 3.0 % [facility] Erythrocyte distribution width (RBC) [Entitic vol] 13.7 % 11.6 - 14.8 % [facility] Hematocrit (Bld) [Volume fraction] 34.1 % Low 41.0 - 53.0 % [facility] Hemoglobin (Bld) [Mass/Vol] 11.3 g/dL Low 13.5 - 17.5 g/dL [facility] Immature granulocytes (Bld) [#/Vol] 0.05 10*3/uL [facility] Immature granulocytes/100 WBC (Bld) 0.80 % [facility] Comment on above: The IG parameter is the percentage of metamyelocytes, myelocytes and promyelocytes. An immature granulocyte count (IG) of 1% or more suggests the possibility of infection, an IG count of 3% is very likely related to an infection. Interpretation and review of laboratory results Abnormal [facility] Lymphocytes (Bld) [#/Vol] 0.68 10*3/uL Low [facility] Lymphocytes/100 WBC (Bld) 11.4 % [facility] MCH (RBC) [Entitic mass] 30.1 pg 26.0 - 34.0 pg [facility] MCHC (RBC) [Mass/Vol] 33.1 g/dL 31.0 - 37.0 g/dL [facility] MCV (RBC) [Entitic vol] 90.9 fL 80.0 - 100.0 fL [facility] Monocytes (Bld) [#/Vol] 0.74 10*3/uL [facility] Monocytes/100 WBC (Bld) 12.4 % [facility] Neutrophils (Bld) [#/Vol] 4.31 10*3/uL [facility] Neutrophils/100 WBC (Bld) 72.1 % [facility] Nucleated RBC (Bld) [#/Vol] 0.00 10*3/uL [facility] Nucleated RBC/100 WBC (Bld) [Ratio] 0.0 % [facility] Platelet mean volume (Bld) [Entitic vol] 9.8 fL 9.4 - 12.4 fL [facility] Platelets (Bld) [#/Vol] 157 10*3/uL [facility] RBC (Bld) [#/Vol] 3.75 10*6/uL Low [facility] ealth WBC (Bld) [#/Vol] 5.98 10*3/uL [facility] eah [facility] ECG 12 Leadon 11-07-2022 Atrial Rate 83 BPM [facility] P-R Interval 192 ms [facility] Q-T Interval 398 ms [facility] QRS Duration 98 ms [facility] QTC Calculation (Bezet) 467 ms [facility] R [place] 30 degrees [facility] T [place] 20 degrees [facility] Ventricular Rate [address] [facility] Sinus rhythm with occasional Premature ventricular complexes and Premature atrial complexes Otherwise normal ECG Confirmed by YAW DIAZ, [facility] ([id number]) on 11/07/2022 11:37:24 AM MUSE [facility] Magnesium Levelon 11-07-2022 Magnesium [Mass/Vol] 2.1 mg/dL 1.6 - 2 .4 mg/dL [facility] Magnesium [Mass/Vol]on 11-07 Interpretation and review of laboratory results Normal [facility] Renal function 2000 panelon 11-07-2022 Albumin [Mass/Vol] 3.1 g/dL Low 3.2 - 5.2 g/dL [facility] Anion gap [Moles/Vol] 16 mmol/L 10 - 2 0 mmol/L [facility] Calcium [Mass/Vol] 8.8 mg/dL 8.4 - 10. 2 mg/dL [facility] Chloride [Moles/Vol] 101 mmol/L 98 - 10 8 mmol/L [facility] Creatinine [Mass/Vol] 1.34 mg/dL High 0.80 - 1.30 mg/dL [facility] GFR/1.73 sq M.predicted CKD-EPI (S/P/Bld) [Vol rate/Area] 53 Low - PINF [facility] Comment on above: Estimated GFR was ca lculated using the 2020 CKD-EPI creatinine equation. Glucose [Mass/Vol] 102 mg/dL High 65 - 99 mg/dL [facility] H[facility]3 [Moles/Vol] 23 mmol/L 21 - 32 mmol/L [facility] Interpretation and review of laboratory results Abnormal [facility] Phosphate [Mass/Vol] 3.1 mg/dL 2.3 - 3 .7 mg/dL [facility] Potassium [Moles/Vol] 3.8 mmol/L 3.5 - 5.1 mmol/L [facility] Sodium [Moles/Vol] 136 mmol/L 135 - 145 mmol/L [facility] Urea nitrogen [Mass/Vol] 26 mg/dL High 8 - 25 mg/dL [facility] Urea nitrogen/Creatinine [Mass ratio] 19.4 mg/mg 10.0 - 20.0 [facility] has implemented the eGFR calculation approach that does not have a coefficient for race that conforms to the NKF-ASN Task Force Recommendations. [facility] TSH DL <= 0.005 mIU/L Qnon 0 11-07-2022 Interpretation and review of laboratory results Normal [facility] TSH Qn 1.75 m[IU]/L [facility] Troponin x 2 (Now and Repeat in 3 hours)on 11-07-2022 Interp Troponin T Delta Change Probable non-acute cardiac injury or late presentation of acute injury. [facility] Interpretation and review of laboratory results Abnormal [facility] Troponin T 51 ng/L Critically high NINF - 22 ng/L [facility] Troponin T Delta % -7 % <20% of Baseline Troponin [facility] Troponin x 2 (Now and Repeat in 3 hours)Ordered By: Eloina Lama on 11-07-2022 Interpretation and review of laboratory results Abnormal [facility] Troponin T 55 ng/L Critically high NINF - 22 ng/L [facility] Troponin T Interpretation Possible acute cardiac injury. [facility] Bacteria identified Aer cx N om (Sput)Ordered By: Thania Tierney on 11-06-2022 Microscopic observation Gram stain Nom (Sput) Rare WBC [facility] Microscopic observation Gram stain Nom (Sput) Many Mixed Cameron [facility] Microscopic observation Gram stain Nom (Sput) Many Epithelial Cells [facility] CBC Auto Differentialon 10-26 Basophils (Bld) [#/Vol] 0.02 10*3/uL [facility] Basophils/100 WBC (Bld) 0.3 % [facility] Eosinophils (Bld) [#/Vol] 0.20 10*3/uL [facility] Eosinophils/100 WBC (Bld) 2.8 % [facility] Erythrocyte distribution width (RBC) [Entitic vol] 13.7 % 11.6 - 14.8 % [facility] Hematocrit (Bld) [Volume fraction] 37.7 % Low 41.0 - 53.0 % [facility] Hemoglobin (Bld) [Mass/Vol] 12.5 g/dL Low 13.5 - 17.5 g/dL [facility] Comment on above: Peripheral smear rev iewed manually Immature granulocytes (Bld) [#/Vol] 0.03 10*3/uL [facility] Immature granulocytes/100 WBC (Bld) 0.40 % [facility] Comment on above: The IG parameter is the percentage of metamyelocytes, myelocytes and promyelocytes. An immature granulocyte count (IG) of 1% or more suggests the possibility of infection, an IG count of 3% is very likely related to an infection. Interpretation and review of laboratory results Abnormal [facility] Lymphocytes (Bld) [#/Vol] 0.50 10*3/uL Low [facility] Lymphocytes/100 WBC (Bld) 7.1 % [facility] MCH (RBC) [Entitic mass] 29.9 pg 26.0 - 34.0 pg [facility] MCHC (RBC) [Mass/Vol] 33.2 g/dL 31.0 - 37.0 g/dL [facility] Comment on above: Cold Agglutinin pres ent MCV (RBC) [Entitic vol] 90.2 fL 80.0 - 100.0 fL [facility] Monocytes (Bld) [#/Vol] 0.66 10*3/uL [facility] Monocytes/100 WBC (Bld) 9.3 % [facility] Neutrophils (Bld) [#/Vol] 5.66 10*3/uL [facility] Neutrophils/100 WBC (Bld) 80.1 % [facility] Nucleated RBC (Bld) [#/Vol] 0.00 10*3/uL [facility] Nucleated RBC/100 WBC (Bld) [Ratio] 0.0 % [facility] Platelet mean volume (Bld) [Entitic vol] 9.9 fL 9.4 - 12.4 fL [facility] Platelets (Bld) [#/Vol] 156 10*3/uL [facility] RBC (Bld) [#/Vol] 4.18 10*6/uL Low [facility] WBC (Bld) [#/Vol] 7.07 10*3/uL [facility] Echocardi[facility] complete w co ntrastOrdered By: Obdulio Mack on 11-06-2022 EF 69.1148 % [facility] Work Phone: [facility] Work Phone: Echocardiogram complete w co ntraston 11-06-2022 Patient Info Name: TRISTIN POWELL Age: 82 years : 1940 Gender: Male Ht: 185 cm Wt: 113 kg BSA: 2.45 m2 HR: 85 bpm BP: 112 / 62 mmHg Technical Quality: Technically difficult Exam Date: 11/06/2022 11:02 AM Patient Status: Inpatient [place] [employer]: Jefferson Mckeon, DEMETRIS, [facility] Exam Type: ECHOCARDIOGRAM COMPLETE W CONTRAST Study Info Indications R06.00 - Dyspnea, unspecified - Evaluate LV function - Dyspnea Attending Physician: GARCIA, [facility] [id number] BMI: 32.98 kg/m2 Summary 1. Mild concentric LVH.. 2. Left ventricular systolic function is normal with an ejection fraction by Biplane Method of Discs of 69 %. 3. The left ventricular diastolic function is grade II diastolic dysfunction, consistent with midly elevated left atrial pressure. 4. The right ventricle is probably mildly dilated with mild systolic dysfunction. Not well-visualized.. 5. There is mild aortic valve regurgitation. 6. The aortic root is mildly dilated measuring 4.2 cm with an index of 1.7 cm/m2. 7. The proximal ascending aorta is mildly dilated measuring 4.0 cm with an index of 1.6 cm/m2. 8. Prior echo from 10/17/2018 showed normal EF with grade 1 diastolic dysfunction. History/Risk Factors Hypertension: Yes Dyslipidemia: Yes Peripheral Arterial Disease (PAD): Yes Coronary Artery Disease (CAD) Yes History/Risk Factors Patient has prior CABG. Prior Interventions CABG: Yes Procedure(s): Definity explained to patient. Patient verbalizes understanding and agrees to proceed. Definity 1.3ml/8.7ml normal sterile saline 2 ml total given IV over 30-60 seconds. Left Ventricle Left ventricular chamber dimension is normal. Left ventricular systolic function is normal with an ejection fraction by Biplane Method of Discs of 69 %. Mild concentric LVH.. Left ventricular segmental wall motion is normal. The left ventricular diastolic function is grade II diastolic dysfunction, consistent with midly elevated left atrial pressure. Right Ventricle Right ventricular chamber dimension is normal. The right ventricle is probably mildly dilated with mild systolic dysfunction. Not well-visualized.. Left Atria Left atrial chamber is mildly enlarged with a left atrial volume index of 38 ml/m2 by BP MOD. Right Atria Right atrial chamber dimension is normal. Aortic Valve The aortic valve is trileaflet. There is mild aortic valve sclerosis. There is no aortic valve stenosis. There is mild aortic valve regurgitation. Pulmonic Valve The pulmonic valve is normal. There is no pulmonic valve stenosis. There is mild pulmonic regurgitation. Mitral Valve The mitral valve has calcified leaflets. There is no mitral valve stenosis. There is no mitral valve regurgitation. Tricuspid Valve The tricuspid valve leaflets are normal. There is no significant tricuspid valve stenosis. There is trace tricuspid valve regurgitation. There is no pulmonary hypertension, estimated right ventricle systolic pressure is Empty. RV systolic pressure could not be accurately estimated. Pericardium/Pleural There is no pericardial effusion. Inferior Vena Cava Normal inferior vena cava with >50% collapse upon inspiration consistent with normal right atrial pressure. Aorta The aortic measurements are indexed to age and body surface area. The aortic root is mildly dilated measuring 4.2 cm with an index of 1.7 cm/m2. The proximal ascending aorta is mildly dilated measuring 4.0 cm with an index of 1.6 cm/m2. Left Ventricular Outflow Tract ---- Name Value Normal ---- LVOT 2D ---- LVOT Diameter 2.5 cm Mitral Valve ---- Name Value Normal ---- MV Doppler ---- MV PHT 52 ms MV Area (PHT) 4.2 cm2 4.0-5.0 MV Diastolic Function ---- MV E Peak Velocity 0.70 m/s MV A Peak Velocity 1.04 m/s MV E/A 0.7 MV Decel Time 180 ms MV Annular TDI (more content not included)... FUJI SYNAPSE CV Obdulio Mack MD - 11/06/2022 Patient Info Name: TRISTIN POWELL Age: 82 years : 1940 Gender: Male Ht: 185 cm Wt: 113 kg BSA: 2.45 m2 HR: 85 bpm BP: 112 / 62 mmHg Technical Quality: Technically difficult Exam Date: 11/06/2022 11:02 AM Patient Status: Inpatient [place] Sequins: Jefferson Mckeon MHA, KIRILL Exam Type: ECHOCARDIOGRAM COMPLETE W CONTRAST Study Info Indications R06.00 - Dyspnea, unspecified - Evaluate LV function - Dyspnea Attending Physician: [facility] [id number] BMI: 32.98 kg/m2 Summary 1. Mild concentric LVH.. 2. Left ventricular systolic function is normal with an ejection fraction by Biplane Method of Discs of 69 %. 3. The left ventricular diastolic function is grade II diastolic dysfunction, consistent with midly elevated left atrial pressure. 4. The right ventricle is probably mildly dilated with mild systolic dysfunction. Not well-visualized.. 5. There is mild aortic valve regurgitation. 6. The aortic root is mildly dilated measuring 4.2 cm with an index of 1.7 cm/m2. 7. The proximal ascending aorta is mildly dilated measuring 4.0 cm with an index of 1.6 cm/m2. 8. Prior echo from 10/17/2018 showed normal EF with grade 1 diastolic dysfunction. History/Risk Factors Hypertension: Yes Dyslipidemia: Yes Peripheral Arterial Disease (PAD): Yes Coronary Artery Disease (CAD) Yes History/Risk Factors Patient has prior CABG. Prior Interventions CABG: Yes Procedure(s): Definity explained to patient. Patient verbalizes understanding and agrees to proceed. Definity 1.3ml/8.7ml normal sterile saline 2 ml total given IV over 30-60 seconds. Left Ventricle Left ventricular chamber dimension is normal. Left ventricular systolic function is normal with an ejection fraction by Biplane Method of Discs of 69 %. Mild concentric LVH.. Left ventricular segmental wall motion is normal. The left ventricular diastolic function is grade II diastolic dysfunction, consistent with midly elevated left atrial pressure. Right Ventricle Right ventricular chamber dimension is normal. The right ventricle is probably mildly dilated with mild systolic dysfunction. Not well-visualized.. Left Atria Left atrial chamber is mildly enlarged with a left atrial volume index of 38 ml/m2 by BP MOD. Right Atria Right atrial chamber dimension is normal. Aortic Valve The aortic valve is trileaflet. There is mild aortic valve sclerosis. There is no aortic valve stenosis. There is mild aortic valve regurgitation. Pulmonic Valve The pulmonic valve is normal. There is no pulmonic valve stenosis. There is mild pulmonic regurgitation. Mitral Valve The mitral valve has calcified leaflets. There is no mitral valve stenosis. There is no mitral valve regurgitation. Tricuspid Valve The tricuspid valve leaflets are normal. There is no significant tricuspid valve stenosis. There is trace tricuspid valve regurgitation. There is no pulmonary hypertension, estimated right ventricle systolic pressure is Empty. RV systolic pressure could not be accurately estimated. Pericardium/Pleural There is no pericardial effusion. Inferior Vena Cava Normal inferior vena cava with >50% collapse upon inspiration consistent with normal right atrial pressure. Aorta The aortic measurements are indexed to age and body surface area. The aortic root is mildly dilated measuring 4.2 cm with an index of 1.7 cm/m2. The proximal ascending aorta is mildly dilated measuring 4.0 cm with an index of 1.6 cm/m2. Left Ventricular Outflow Tract ---- Name Value Normal ---- LVOT 2D ---- LVOT Diameter 2.5 cm Mitral Valve ---- Name Value Normal ---- MV Doppler ---- MV PHT 52 ms MV Area (PHT) 4.2 cm2 4.0-5.0 MV Diastolic Function ---- MV E Peak Velocity 0.70 m/s MV A Peak Velocity 1.04 m/s MV E/A 0.7 MV Decel Time 180 ms MV Annular TDI ---- MV Septal e' Velocity 3.8 cm/s >=8.0 MV E/e' (Septal) 18.4 <=8.0 MV Lateral e' Velocity 6.7 cm/s >=10.0 MV E/e' (Lateral) 10.5 <=8.0 MV e' Average 5.25 cm/s MV E/e' (Average) 14.5 Tricuspid Valve ---- Name Value Normal ----- (more content not included)... [facility] Radiology Study observation (narrative) [facility] Magnesium Levelon 11-06-2022 Magnesium [Mass/Vol] 2.0 mg/dL 1.6 - 2 .4 mg/dL [facility] Magnesium [Mass/Vol]on 11-06 Interpretation and review of laboratory results Normal [facility] Renal function 2000 panelon 11-06-2022 Albumin [Mass/Vol] 3.3 g/dL 3.2 - 5.2 g/dL [facility] Anion gap [Moles/Vol] 16 mmol/L 10 - 2 0 mmol/L [facility] Calcium [Mass/Vol] 8.9 mg/dL 8.4 - 10. 2 mg/dL [facility] Chloride [Moles/Vol] 102 mmol/L 98 - 10 8 mmol/L [facility] Creatinine [Mass/Vol] 1.34 mg/dL High 0.80 - 1.30 mg/dL [facility] GFR/1.73 sq M.predicted CKD-EPI (S/P/Bld) [Vol rate/Area] 53 Low - PINF [facility] Comment on above: Estimated GFR was ca lculated using the 2020 CKD-EPI creatinine equation. Glucose [Mass/Vol] 141 mg/dL High 65 - 99 mg/dL [facility] HCO3 [Moles/Vol] 24 mmol/L 21 - 32 mmol/L [facility] Interpretation and review of laboratory results Abnormal [facility] Phosphate [Mass/Vol] 3.6 mg/dL 2.3 - 3 .7 mg/dL [facility] Potassium [Moles/Vol] 3.9 mmol/L 3.5 - 5.1 mmol/L [facility] Sodium [Moles/Vol] 138 mmol/L 135 - 145 mmol/L [facility] Urea nitrogen [Mass/Vol] 26 mg/dL High 8 - 25 mg/dL [facility] Urea nitrogen/Creatinine [Mass ratio] 19.4 mg/mg 10.0 - 20.0 [facility] has implemented the eGFR calculation approach that does not have a coefficient for race that conforms to the NKF-ASN Task Force Recommendations. [facility] Sputum Aerobic CultureOrdere d By: Thania Tierney on 11-06-2022 Bacteria identified Aer cx Nom (Sput) Normal [place] After 48 Hours [facility] CBC Auto Differentialon 10-26 Basophils (Bld) [#/Vol] 0.02 10*3/uL [facility] Basophils/100 WBC (Bld) 0.3 % [facility] Eosinophils (Bld) [#/Vol] 0.18 10*3/uL [facility] Eosinophils/100 WBC (Bld) 2.7 % [facility] Erythrocyte distribution width (RBC) [Entitic vol] 13.8 % 11.6 - 14.8 % [facility] Hematocrit (Bld) [Volume fraction] 33.8 % Low 41.0 - 53.0 % [facility] Hemoglobin (Bld) [Mass/Vol] 12.1 g/dL Low 13.5 - 17.5 g/dL [facility] Immature granulocytes (Bld) [#/Vol] 0.06 10*3/uL [facility] Immature granulocytes/100 WBC (Bld) 0.90 % [facility] Comment on above: The IG parameter is the percentage of metamyelocytes, myelocytes and promyelocytes. An immature granulocyte count (IG) of 1% or more suggests the possibility of infection, an IG count of 3% is very likely related to an infection. Interpretation and review of laboratory results Abnormal [facility] Lymphocytes (Bld) [#/Vol] 0.62 10*3/uL Low [facility] Lymphocytes/100 WBC (Bld) 9.3 % [facility] MCH (RBC) [Entitic mass] 32.9 pg 26.0 - 34.0 pg [facility] MCHC (RBC) [Mass/Vol] 35.8 g/dL 31.0 - 37.0 g/dL [facility] MCV (RBC) [Entitic vol] 91.8 fL 80.0 - 100.0 fL [facility] Monocytes (Bld) [#/Vol] 0.74 10*3/uL [facility] Monocytes/100 WBC (Bld) 11.1 % [facility] Neutrophils (Bld) [#/Vol] 5.06 10*3/uL [facility] Neutrophils/100 WBC (Bld) 75.7 % [facility] Nucleated RBC (Bld) [#/Vol] 0.00 10*3/uL [facility] Nucleated RBC/100 WBC (Bld) [Ratio] 0.0 % [facility] Platelet mean volume (Bld) [Entitic vol] 9.5 fL 9.4 - 12.4 fL [facility] Platelets (Bld) [#/Vol] 164 10*3/uL [facility] RBC (Bld) [#/Vol] 3.68 10*6/uL Low [facility] WBC (Bld) [#/Vol] 6.68 10*3/uL [facility] Magnesium Levelon 11-05-2022 Magnesium [Mass/Vol] 2.2 mg/dL 1.6 - 2 .4 mg/dL [facility] Magnesium [Mass/Vol]on 11-05 Interpretation and review of laboratory results Normal [facility] Renal function 2000 panelon 11-05-2022 Albumin [Mass/Vol] 3.1 g/dL Low 3.2 - 5.2 g/dL [facility] Anion gap [Moles/Vol] 16 mmol/L 10 - 2 0 mmol/L [facility] Calcium [Mass/Vol] 8.6 mg/dL 8.4 - 10. 2 mg/dL [facility] Chloride [Moles/Vol] 101 mmol/L 98 - 10 8 mmol/L [facility] Creatinine [Mass/Vol] 1.20 mg/dL 0.80 - 1.30 mg/dL [facility] GFR/1.73 sq M.predicted CKD-EPI (S/P/Bld) [Vol rate/Area] 60 - PINF [facility] Comment on above: Estimated GFR was ca lculated using the 2020 CKD-EPI creatinine equation. Glucose [Mass/Vol] 114 mg/dL High 65 - 99 mg/dL [facility] HCO3 [Moles/Vol] 22 mmol/L 21 - 32 mmol/L [facility] Interpretation and review of laboratory results Abnormal [facility] Phosphate [Mass/Vol] 4.3 mg/dL High 2.3 - 3 .7 mg/dL [facility] Potassium [Moles/Vol] 3.7 mmol/L 3.5 - 5.1 mmol/L [facility] Sodium [Moles/Vol] 135 mmol/L 135 - 145 mmol/L [facility] Urea nitrogen [Mass/Vol] 22 mg/dL 8 - 25 mg/dL [facility] Urea nitrogen/Creatinine [Mass ratio] 18.3 mg/mg 10.0 - 20.0 [facility] has implemented the eGFR calculation approach that does not have a coefficient for race that conforms to the NKF-ASN Task Force Recommendations. [facility] CBC Auto Differentialon 10-26 Basophils (Bld) [#/Vol] 0.01 10*3/uL [facility] Basophils/100 WBC (Bld) 0.2 % [facility] Eosinophils (Bld) [#/Vol] 0.11 10*3/uL [facility] Eosinophils/100 WBC (Bld) 1.7 % [facility] Erythrocyte distribution width (RBC) [Entitic vol] 13.9 % 11.6 - 14.8 % [facility] Hematocrit (Bld) [Volume fraction] 36.9 % Low 41.0 - 53.0 % [facility] Hemoglobin (Bld) [Mass/Vol] 13.0 g/dL Low 13.5 - 17.5 g/dL [facility] Immature granulocytes (Bld) [#/Vol] 0.06 10*3/uL [facility] Immature granulocytes/100 WBC (Bld) 0.90 % [facility] Comment on above: The IG parameter is the percentage of metamyelocytes, myelocytes and promyelocytes. An immature granulocyte count (IG) of 1% or more suggests the possibility of infection, an IG count of 3% is very likely related to an infection. Interpretation and review of laboratory results Abnormal [facility] Lymphocytes (Bld) [#/Vol] 0.60 10*3/uL Low [facility] Lymphocytes/100 WBC (Bld) 9.2 % [facility] MCH (RBC) [Entitic mass] 32.8 pg 26.0 - 34.0 pg [facility] MCHC (RBC) [Mass/Vol] 35.2 g/dL 31.0 - 37.0 g/dL [facility] MCV (RBC) [Entitic vol] 93.2 fL 80.0 - 100.0 fL [facility] Monocytes (Bld) [#/Vol] 0.70 10*3/uL [facility] Monocytes/100 WBC (Bld) 10.7 % [facility] Neutrophils (Bld) [#/Vol] 5.06 10*3/uL [facility] Neutrophils/100 WBC (Bld) 77.3 % [facility] Nucleated RBC (Bld) [#/Vol] 0.00 10*3/uL [facility] Nucleated RBC/100 WBC (Bld) [Ratio] 0.0 % [facility] Platelet mean volume (Bld) [Entitic vol] 9.3 fL Low 9.4 - 12.4 fL [facility] Platelets (Bld) [#/Vol] 188 10*3/uL [facility] RBC (Bld) [#/Vol] 3.96 10*6/uL Low [facility] WBC (Bld) [#/Vol] 6.54 10*3/uL [facility] e[facility] COVID-19, MolecularOrdered B y: Elaine Robles on 11-04-2022 SARS-CoV-2 (COVID-19) RNA OREN+probe Ql (Resp) Not detected Not Detected [facility] Legionella Antigen, Urineon 11-04-2022 Interpretation and review of laboratory results Normal [facility] L. pneumophila Ag Ql (U) Negative Negative for Legionella antigen [facility] Comment on above: COMMENT: Results may be affected if patient is on diuretics. INTERPRETATION OF RESULTS: Test detects Legionella pneumophilia serogroup 1 antigens in urine. Legionnaires disease cannot be ruled out since other serogroups and species may also cause disease. [facility] MRSA DNA Amplified ProbeOrde red By: Joseluis Limon on 11-04-2022 MRSA DNA OREN+probe Ql (Unsp spec) Not detected Not Detected, MRSA NEGATIVE [facility] MRSA DNA OREN+probe Ql (Unsp spec)Ordered By: Joseluis Limon on 11-04-2022 Interpretation and review of laboratory results Normal [facility] Magnesium Levelon 11-04-2022 Magnesium [Mass/Vol] 2.0 mg/dL 1.6 - 2 .4 mg/dL [facility] Magnesium [Mass/Vol]on 11-04 Interpretation and review of laboratory results Normal [facility] Renal function 2000 panelon 11-04-2022 Albumin [Mass/Vol] 3.3 g/dL 3.2 - 5.2 g/dL [facility] Anion gap [Moles/Vol] 15 mmol/L 10 - 2 0 mmol/L [facility] Calcium [Mass/Vol] 9.2 mg/dL 8.4 - 10. 2 mg/dL [facility] Chloride [Moles/Vol] 105 mmol/L 98 - 10 8 mmol/L [facility] Creatinine [Mass/Vol] 0.97 mg/dL 0.80 - 1.30 mg/dL [facility] GFR/1.73 sq M.predicted CKD-EPI (S/P/Bld) [Vol rate/Area] 77 - PINF [facility] Comment on above: Estimated GFR was ca lculated using the 2020 CKD-EPI creatinine equation. Glucose [Mass/Vol] 103 mg/dL High 65 - 99 mg/dL [facility] HCO3 [Moles/Vol] 24 mmol/L 21 - 32 mmol/L [facility] Interpretation and review of laboratory results Abnormal [facility] Phosphate [Mass/Vol] 3.9 mg/dL High 2.3 - 3 .7 mg/dL [facility] Potassium [Moles/Vol] 4.4 mmol/L 3.5 - 5.1 mmol/L [facility] Sodium [Moles/Vol] 140 mmol/L 135 - 145 mmol/L [facility] Urea nitrogen [Mass/Vol] 18 mg/dL 8 - 25 mg/dL [facility] Urea nitrogen/Creatinine [Mass ratio] 18.6 mg/mg 10.0 - 20.0 [facility] has implemented the eGFR calculation approach that does not have a coefficient for race that conforms to the NKF-ASN Task Force Recommendations. [facility] Respiratory pathogens DNA an d RNA panel OREN+non-probe (Nph)Ordered By: Shanelle Garcia on 11-04-2022 Adenovirus DNA OREN+non-probe Ql (Nph) Not detected [facility]. parapertussis [id number] DNA OREN+non-probe Ql (Nph) Not detected [facility] B. pertussis toxin promoter region OREN+non-probe Ql (Nph) Not detected [facility] C. pneumoniae DNA OREN+non-probe Ql (Nph) Not detected Not Detected [facility] FLUAV RNA OREN+non-probe Ql (Nph) Not detected Not Detected [facility] FLUBV RNA OREN+non-probe Ql (Nph) Not detected Not Detected [facility] HCoV 229E RNA OREN+non-probe Ql (Nph) Not detected Not Detected [facility] HCoV HKU1 RNA OREN+non-probe Ql (Nph) Not detected Not Detected [facility] HCoV NL63 RNA OREN+non-probe Ql (Nph) Not detected Not Detected [facility] HCoV OC43 RNA OREN+non-probe Ql (Nph) Not detected Not Detected [facility] hMPV RNA OREN+non-probe Ql (Nph) Not detected Not Detected [facility] Interpretation and review of laboratory results Normal [facility] M. pneumoniae DNA OREN+non-probe Ql (Nph) Not detected Not Detected [facility] Parainfluenza virus 1 RNA OREN+non-probe Ql (Nph) Not detected Not Detected [facility] Parainfluenza virus 2 RNA OREN+non-probe Ql (Nph) Not detected Not Detected [facility] Parainfluenza virus 3 RNA OREN+non-probe Ql (Nph) Not detected Not Detected [facility] Parainfluenza virus 4 RNA OREN+non-probe Ql (Nph) Not detected Not Detected [facility] Rhinovirus+Enterovirus RNA OREN+non-probe Ql (Nph) Not detected Not Detected [facility] RSV RNA OREN+non-probe Ql (Nph) Not detected Not Detected [facility] SARS-CoV-2 (COVID-19) RNA OREN+non-probe Ql (Nph) Not detected Not Detected [facility] S. pneumoniae Urine AntigenO rdered By: Kezia Mercedes on 11-04-2022 Interpretation and review of laboratory results Normal [facility] S. pneumoniae Ag Ql (U) Negative Presumptive Negative for Pneumococcal pneumoniae [facility] Comment on above: A negative result santo ggests no current or recent pneumococcal infection. A negative result does not rule out Streptococcus pneumoniae infection since the antigen present in the sample may be below the detection limit of the test. [facility] SARS-CoV-2 (COVID-19) RNA NA A+probe Ql (Resp)Ordered By: Elaine Robles on 11-04-2022 Interpretation and review of laboratory results Normal [facility] This test was performed under the FDA's Emergency Use Authorization (EUA). Testing was performed using the Joao SARS-CoV-2 RT-PCR Test on the [employer] [facility]. This test has not been approved for use in asymptomatic patients and its performance in this patient population has not been evaluated. Negative results do not rule out the presence of SARS-CoV-2. Fact sheets for the EUA can be found at the following links: For Healthcare Providers: https://www.[facility].gov/ky wandy/812930/download For Patients: https://www.[facility].gov/ky wandy/664469/download [facility] XR Humerus Left 2+ Views (St andard)on 11-04-2022 1. Mineralization within normal limits. 2. No acute fractures or dislocations. No aggressive periosteal reaction or destructive osseous changes. 3. Moderate AC joint degeneration. 4. Moderate to large triceps enthesophyte. 5. Curvilinear left lower lung base scarring/atelectasis. Workstation ID: [id number] [employer] EXAMINATION: XR HUMERUS LEFT 2+ VIEWS (STANDARD) HISTORY: pain, swelling Injury/Trauma or Illness?:Illness/Other How long have you had these symptoms (acute/chronic)?:Acute Reason for exam?:pain, swelling History of cancer?:unk Surgeries, chemotherapy, or radiation?:YES J18.9 Community acquired pneumonia of left lower lobe of lung COMPARISON: None TECHNIQUE: Frontal and lateral views of the left humerus. FINDINGS: As below. [facility] Gustavo Muro MD - 11/04/2022 EXAMINATION: XR HUMERUS LEFT 2+ VIEWS (STANDARD) HISTORY: pain, swelling Injury/Trauma or Illness?:Illness/Other How long have you had these symptoms (acute/chronic)?:Acute Reason for exam?:pain, swelling History of cancer?:unk Surgeries, chemotherapy, or radiation?:YES J18.9 Community acquired pneumonia of left lower lobe of lung COMPARISON: None TECHNIQUE: Frontal and lateral views of the left humerus. FINDINGS: As below. IMPRESSION: 1. Mineralization within normal limits. 2. No acute fractures or dislocations. No aggressive periosteal reaction or destructive osseous changes. 3. Moderate AC joint degeneration. 4. Moderate to large triceps enthesophyte. 5. Curvilinear left lower lung base scarring/atelectasis. Workstation ID: [id number] [facility] Radiology Study observation (narrative) [facility] XR Humerus Left 2+ Views (St andard)Ordered By: Gustavo Muro on 11-04-2022 [facility] Work Phone: Basic metabolic 2000 panelon 11-03-2022 Anion gap [Moles/Vol] 14 mmol/L 10 - 2 0 mmol/L [facility] Calcium [Mass/Vol] 9.5 mg/dL 8.4 - 10. 2 mg/dL [facility] Chloride [Moles/Vol] 101 mmol/L 98 - 10 8 mmol/L [facility] Creatinine [Mass/Vol] 1.13 mg/dL 0.80 - 1.30 mg/dL [facility] GFR/1.73 sq M.predicted CKD-EPI (S/P/Bld) [Vol rate/Area] 64 - PINF [facility] Comment on above: Estimated GFR was ca lculated using the 2020 CKD-EPI creatinine equation. Glucose [Mass/Vol] 92 mg/dL 65 - 99 mg/dL [facility] HCO3 [Moles/Vol] 24 mmol/L 21 - 32 mmol/L [facility] Interpretation and review of laboratory results Normal [facility] Potassium [Moles/Vol] 4.3 mmol/L 3.5 - 5.1 mmol/L [facility] Sodium [Moles/Vol] 135 mmol/L 135 - 145 mmol/L [facility] Urea nitrogen [Mass/Vol] 20 mg/dL 8 - 25 mg/dL [facility] Urea nitrogen/Creatinine [Mass ratio] 17.7 mg/mg 10.0 - 20.0 [facility] has implemented the eGFR calculation approach that does not have a coefficient for race that conforms to the NKF-ASN Task Force Recommendations. [facility] CBC Auto Differentialon Basophils (Bld) [#/Vol] 0.03 10*3/uL [facility] Basophils/100 WBC (Bld) 0.4 % [facility] Eosinophils (Bld) [#/Vol] 0.18 10*3/uL [facility] Eosinophils/100 WBC (Bld) 2.2 % [facility] Erythrocyte distribution width (RBC) [Entitic vol] 14.3 % 11.6 - 14.8 % [facility] Hematocrit (Bld) [Volume fraction] 40.7 % Low 41.0 - 53.0 % [facility] Hemoglobin (Bld) [Mass/Vol] 13.4 g/dL Low 13.5 - 17.5 g/dL [facility] Immature granulocytes (Bld) [#/Vol] 0.06 10*3/uL [facility] Immature granulocytes/100 WBC (Bld) 0.70 % [facility] Comment on above: The IG parameter is the percentage of metamyelocytes, myelocytes and promyelocytes. An immature granulocyte count (IG) of 1% or more suggests the possibility of infection, an IG count of 3% is very likely related to an infection. Interpretation and review of laboratory results Abnormal [facility] Lymphocytes (Bld) [#/Vol] 0.70 10*3/uL Low [facility] Lymphocytes/100 WBC (Bld) 8.7 % [facility] MCH (RBC) [Entitic mass] 30.5 pg 26.0 - 34.0 pg [facility] MCHC (RBC) [Mass/Vol] 32.9 g/dL 31.0 - 37.0 g/dL [facility] Comment on above: Cold Agglutinin pres ent MCV (RBC) [Entitic vol] 92.7 fL 80.0 - 100.0 fL [facility] Monocytes (Bld) [#/Vol] 0.68 10*3/uL [facility] Monocytes/100 WBC (Bld) 8.4 % [facility] Neutrophils (Bld) [#/Vol] 6.41 10*3/uL [facility] Neutrophils/100 WBC (Bld) 79.6 % [facility] Nucleated RBC (Bld) [#/Vol] 0.00 10*3/uL [facility] Nucleated RBC/100 WBC (Bld) [Ratio] 0.0 % [facility] Platelet mean volume (Bld) [Entitic vol] 10.0 fL 9.4 - 12.4 fL [facility] Platelets (Bld) [#/Vol] 192 10*3/uL [facility] RBC (Bld) [#/Vol] 4.39 10*6/uL Low [facility] ealth WBC (Bld) [#/Vol] 8.06 10*3/uL [facility] CRP [Mass/Vol]on 11-03-2022 Interpretation and review of laboratory results Abnormal [facility] CRP, Inflammationon 11-04-19 23 CRP [Mass/Vol] 35.4 mg/L High 0.0 - 10.0 mg/L [facility] CT Pulmonary Arterieson No evidence for acute pulmonary embolism. Left lower lobe pneumonia. Workstation ID: [id number] [employer] EXAMINATION: CT PULMONARY ARTERIES HISTORY: ORDERING SYSTEM PROVIDED HISTORY: chest pain, SOB, TECHNOLOGIST PROVIDED HISTORY: Illness/Other Reason for exam: chest pain, SOB Encounter Type: Initial Additional signs and symptoms: chest pain, SOB ORDERING SYSTEM PROVIDED DIAGNOSIS CODES: COMPARISON: 05/11/2022. TECHNIQUE: CT angiogram with contrast performed of the chest including multi planar reformatted images and maximum intensity projection images.IOPAMIDOL 370 MG IODINE/ML (76 %) INTRAVENOUS SOLUTION - 75 mL, Dose reduction techniques were achieved by using automated exposure control and/or adjustment of mA and/or kV according to patient size and/or use of iterative reconstruction technique. FINDINGS: LOWER NECK AND AXILLA: No lymphadenopathy. MEDIASTINAL/HILAR LYMPH NODES: No lymphadenopathy.The esophagus is unremarkable. HEART/PERICARDIUM: Prior coronary artery bypass. The heart is enlarged.. The thoracic aorta appears unremarkable.No pulmonary arterial filling defects to suggest acute pulmonary embolism. LUNGS/AIRWAYS: Patchy left lower lobe airspace opacity posteriorly suggesting pneumonia. Mild dependent atelectasis at the right base. Scattered benign calcified granulomas. PLEURAL CAVITY: No pleural effusion or pneumothorax. VISUALIZED UPPER ABDOMEN: No acute findings. CHEST WALL: No acute abnormality. [facility] Silvio Dhillon MD - 11/03/2022 EXAMINATION: CT PULMONARY ARTERIES HISTORY: ORDERING SYSTEM PROVIDED HISTORY: chest pain, SOB, TECHNOLOGIST PROVIDED HISTORY: Illness/Other Reason for exam: chest pain, SOB Encounter Type: Initial Additional signs and symptoms: chest pain, SOB ORDERING SYSTEM PROVIDED DIAGNOSIS CODES: COMPARISON: 05/11/2022. TECHNIQUE: CT angiogram with contrast performed of the chest including multi planar reformatted images and maximum intensity projection images.IOPAMIDOL 370 MG IODINE/ML (76 %) INTRAVENOUS SOLUTION - 75 mL, Dose reduction techniques were achieved by using automated exposure control and/or adjustment of mA and/or kV according to patient size and/or use of iterative reconstruction technique. FINDINGS: LOWER NECK AND AXILLA: No lymphadenopathy. MEDIASTINAL/HILAR LYMPH NODES: No lymphadenopathy.The esophagus is unremarkable. HEART/PERICARDIUM: Prior coronary artery bypass. The heart is enlarged.. The thoracic aorta appears unremarkable.No pulmonary arterial filling defects to suggest acute pulmonary embolism. LUNGS/AIRWAYS: Patchy left lower lobe airspace opacity posteriorly suggesting pneumonia. Mild dependent atelectasis at the right base. Scattered benign calcified granulomas. PLEURAL CAVITY: No pleural effusion or pneumothorax. VISUALIZED UPPER ABDOMEN: No acute findings. CHEST WALL: No acute abnormality. IMPRESSION: No evidence for acute pulmonary embolism. Left lower lobe pneumonia. Workstation ID: [id number] [facility] Radiology Study observation (narrative) [facility] CT Pulmonary ArteriesOrdered By: Silvio Dhillon on 11-03-2022 [facility] Work Phone: EKG 12-leadon 11-03-2022 Atrial Rate 86 BPM [facility] P [place] 11 degrees [facility] P-R Interval 114 ms [facility] Q-T Interval 386 ms [facility] QRS Duration 88 ms [facility] QTC Calculation (Bezet) 461 ms [facility] R [place] 46 degrees [facility] T [place] 33 degrees [facility] Ventricular Rate [address] [facility] Normal sinus rhythm Normal ECG Confirmed by PIERCE MOREAU DO ([id number]) on 11/03/2022 4:55:18 PM [facility] ESR Westergren method (Bld) [Velocity]on 11-03-2022 ESR (Bld) [Velocity] 30 mm/h High [facility] Interpretation and review of laboratory results Abnormal [facility] Gold Topon 11-03-2022 Extra Tube Hold for add-ons. [facility] Comment on above: Auto resulted. NT Pro BNPon 11-03-2022 Natriuretic peptide.B prohormone N-Terminal [Mass/Vol] 429 pg/mL High 0 - 300 pg/mL [facility] Natriuretic peptide.B prohor mark N-Terminal [Mass/Vol]on 11-03-2022 Interpretation and review of laboratory results Abnormal [facility] Pride Study Cut-offs Rule In: < /= 50 Years >450 pg/mL 51 Years - 75 Years >900 pg/mL 76 Years - 99 Years >1800 pg/mL Rule Out: All patients <300 pg/mL [facility] No Panel Informationon 11-03 Extra Tube Hold for add-ons. [facility] Comment on above: Auto resulted. [facility] TroponinOrdered By: Randal souza on 11-03-2022 Interp Troponin T Delta Change Probable non-acute cardiac injury or late presentation of acute injury. [facility] Interpretation and review of laboratory results Abnormal [facility] Troponin T 119 ng/L Critically high NINF - 22 ng/L [facility] Troponin T Delta % 1 % <20% of Baseline Troponin [facility] TroponinOrdered By: Rhonda Bland on 11-03-2022 Interpretation and review of laboratory results Abnormal [facility] Troponin T 117 ng/L Critically high NINF - 22 ng/L [facility] Troponin T Interpretation Possible acute cardiac injury. [facility] UrinalysisOrdered By: [place]o [place] on 11-03-2022 Bacteria Auto Ql (U) None Seen None Se en /hpf [facility] Bilirubin Ql (U) Negative Negative [facility] th Clarity Refractometry automated (U) Clear Clear [facility] Color (U) Yellow Colorless, Yellow [facility] Glucose Auto test strip (U) [Mass/Vol] Negative Negative mg/dL [facility] Hemoglobin Auto test strip Ql (U) Negative Negative [facility] Interpretation and review of laboratory results Abnormal [facility] Ketones (U) [Mass/Vol] Negative Negat tatum mg/dL [facility] Leukocyte esterase Auto test strip Ql (U) Negative Negative [facility] h Mucus Auto (Urine sed) [#/Area] Rare None Seen, Rare /lpf [facility] Nitrite Auto test strip Ql (U) Negative Negative [facility] pH (U) 7.5 [pH] High 5.0 - 7.0 [facility] Protein (U) [Mass/Vol] Negative Negat tatum mg/dL [facility] RBC Auto (Urine sed) [#/Area] 2 [facility] Specific gravity (U) [Rel density] 1.020 1.005 - 1.025 [facility] Urobilinogen (U) [Mass/Vol] mg/dL NINF - 2.0 mg/dL [facility] Microscopic examination is performed on all urinalysis samples and only positive findings are reported. The test for blood on the chemical analytic portion of urinalysis may also be positive due to hemoglobinuria and myoglobinuria and if red blood cells are present they are quantified by microscopic examination. 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 Conclusions * No evidence of deep or superficial vein thrombosis in the right or left lower extremities. . 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 Conclusions * No evidence of deep or superficial vein thrombosis in the right or left lower extremities. . Report Signatures Finalized by Tera Meyer MD, RPLUIZA, FSIR on 11/03/2022 02:59 PM [facility] Radiology Study observation (narrative) [facility] Venous Doppler BILATERAL Low er ExtremitiesOrdered By: Sylvia Meyer on 11-03-2022 [facility] Work Phone: XR Chest 1 Viewon 11-03-2022 FINDINGS/ 1. Patient is status post sternotomy, somewhat rotated, lordotic. The visualized osseous structures appear intact. 2. The heart size seems normal. The aorta is tortuous, atherosclerotic. 3. There are some linear densities at lung bases, either scarring or discoid atelectatic changes. There are no focal infiltrates, pleural effusions, pulmonary edema, or pneumothorax. There are a few scattered calcified granulomas within the lungs. KKV/ads Workstation ID: [id number] [employer] EXAMINATION: AP UPRIGHT CHEST: 11/03/2022 AT 1536 HOURS HISTORY: Injury/Trauma or Illness?:Illness/Other How long have you had these symptoms (acute/chronic)?:Unkno wn sob COMPARISON FILMS: AP chest 10/09/2018 from [facility]. Cedric Albrecht MD - 11/03/2022 EXAMINATION: AP UPRIGHT CHEST: 11/03/2022 AT 1536 HOURS HISTORY: Injury/Trauma or Illness?:Illness/Other How long have you had these symptoms (acute/chronic)?:Unkno wn sob COMPARISON FILMS: AP chest 10/09/2018 from [facility]. IMPRESSION: FINDINGS/ 1. Patient is status post sternotomy, somewhat rotated, lordotic. The visualized osseous structures appear intact. 2. The heart size seems normal. The aorta is tortuous, atherosclerotic. 3. There are some linear densities at lung bases, either scarring or discoid atelectatic changes. There are no focal infiltrates, pleural effusions, pulmonary edema, or pneumothorax. There are a few scattered calcified granulomas within the lungs. KKV/ads Workstation ID: [id number] [facility] Radiology Study observation (narrative) [facility] XR Chest 1 ViewOrdered By: Red Emmanuel on 11-03-2022 [facility] Work Phone: XR Foot Left 3+ Views (Stand khalif)on 11-03-2022 Chronic findings without plain film evidence of acute osseous abnormalities. 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 No evidence of osseous erosion or lysis to suggest significant osseous infection. There is no acute fracture or acute subluxation. There is scattered soft tissue edema and vascular atherosclerotic calcification. 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 No evidence of osseous erosion or lysis to suggest significant osseous infection. There is no acute fracture or acute subluxation. There is scattered soft tissue edema and vascular atherosclerotic calcification. IMPRESSION: Chronic findings without plain film evidence of acute osseous abnormalities. Workstation ID: [id number] [facility] Radiology Study observation (narrative) [facility] XR Foot Left 3+ Views (Stand khalif)Ordered By: Rohit March on 11-03-2022 [facility] Work Phone: BNPon 10-30-2022 Natriuretic peptide B (Bld) [Mass/Vol] 93 pg/mL Normal 0-100 [facility] Comment on above: Performed By: #### B ARTIFICIAL FLOWER MAKER #### [place] [address] Ph. [phone] Complete Blood Count with Au to Diffon 10-30-2022 BASO# BASO#: 0.0 Normal 0.0-0.1 [facility] Comment on above: Order Comment: resut s after 30 minutes of incubation at 37degree C possible cold rbc agglutination Performed By: #### D IFF, CBCAD #### [place] [address] Ph. [phone] BASO% BASO%: 0 Normal 0-1 [facility] Comment on above: Order Comment: resut s after 30 minutes of incubation at 37degree C possible cold rbc agglutination Performed By: #### D IFF, CBCAD #### [place] [address] Ph. [phone] Eosinophils (Bld) [#/Vol] 0.2 10*3/uL Normal 0.0-0.5 [facility] Comment on above: Order Comment: resut s after 30 minutes of incubation at 37degree C possible cold rbc agglutination Performed By: #### D IFF, CBCAD #### [place] [address] Ph. [phone] Eosinophils/100 WBC (Bld) 2 % Normal 0-5 [facility] Comment on above: Order Comment: resut s after 30 minutes of incubation at 37degree C possible cold rbc agglutination Performed By: #### D IFF, CBCAD #### [place] [address] Ph. [phone] Erythrocyte distribution width (RBC) [Ratio] 13.8 % Normal 11.5-14.5 [facility] Comment on above: Order Comment: resut s after 30 minutes of incubation at 37degree C possible cold rbc agglutination Performed By: #### D IFF, CBCAD #### [place] [address] Ph. [phone] Hematocrit (Bld) [Volume fraction] 39.9 % Low 42.0-52.0 [facility] Comment on above: Order Comment: resut s after 30 minutes of incubation at 37degree C possible cold rbc agglutination Performed By: #### D IFF, CBCAD #### [place] [address] Ph. [phone] Hemoglobin (Bld) [Mass/Vol] 13.7 g/dL Normal 13.5-17.5 [facility] Comment on above: Order Comment: resut s after 30 minutes of incubation at 37degree C possible cold rbc agglutination Performed By: #### D IFF, CBCAD #### [place] [address] Ph. [phone] Lymphocytes (Bld) [#/Vol] 0.7 10*3/uL Low 1.0-4.0 [facility] Comment on above: Order Comment: resut s after 30 minutes of incubation at 37degree C possible cold rbc agglutination Performed By: #### D IFF, CBCAD #### [place] [address] Ph. [phone] Lymphocytes/100 WBC (Bld) 6 % Low 20-40 [facility] Comment on above: Order Comment: resut s after 30 minutes of incubation at 37degree C possible cold rbc agglutination Performed By: #### D IFF, CBCAD #### [place] [address] Ph. [phone] MCH (RBC) [Entitic mass] 31.3 pg Normal 27.0-35.0 [facility] Comment on above: Order Comment: resut s after 30 minutes of incubation at 37degree C possible cold rbc agglutination Performed By: #### D IFF, CBCAD #### [place] [address] Ph. [phone] MCHC (RBC) [Mass/Vol] 34.3 g/dL Normal 32.0-36.0 [facility] Comment on above: Order Comment: resut s after 30 minutes of incubation at 37degree C possible cold rbc agglutination Performed By: #### D IFF, CBCAD #### [place] [address] Ph. [phone] MCV (RBC) [Entitic vol] 91.1 fL Normal 80.0-100.0 [facility] Comment on above: Order Comment: resut s after 30 minutes of incubation at 37degree C possible cold rbc agglutination Performed By: #### D IFF, CBCAD #### [place] [address] Ph. [phone] Monocytes (Bld) [#/Vol] 0.8 10*3/uL Normal 0.3-1.0 [facility] Comment on above: Order Comment: resut s after 30 minutes of incubation at 37degree C possible cold rbc agglutination Performed By: #### D IFF, CBCAD #### [place] [address] Ph. [phone] Monocytes/100 WBC (Bld) 7 % Normal 1-15 [facility] Comment on above: Order Comment: resut s after 30 minutes of incubation at 37degree C possible cold rbc agglutination Performed By: #### D IFF, CBCAD #### [place] [id number] Ph. [phone] Neutrophils (Bld) [#/Vol] 9.8 10*3/uL High 1.8-7.7 [facility] Comment on above: Order Comment: resut s after 30 minutes of incubation at 37degree C possible cold rbc agglutination Performed By: #### D IFF, CBCAD #### [place] [address] Ph. [phone] Neutrophils/100 WBC (Bld) 84 % High 50-70 [facility] Comment on above: Order Comment: resut s after 30 minutes of incubation at 37degree C possible cold rbc agglutination Performed By: #### D IFF, CBCAD #### [place] [address] Ph. [phone] Platelet mean volume (Bld) [Entitic vol] 10.1 fL Normal 9.4-12.3 [facility] Comment on above: Order Comment: resut s after 30 minutes of incubation at 37degree C possible cold rbc agglutination Performed By: #### D IFF, CBCAD #### [place] [address] Ph. [phone] Platelets (Bld) [#/Vol] 180 10*3/uL Normal 150-450 [facility] Comment on above: Order Comment: resut s after 30 minutes of incubation at 37degree C possible cold rbc agglutination Performed By: #### D IFF, CBCAD #### [address] [address] Ph. [phone] RBC (Bld) [#/Vol] 4.38 10*6/uL Low 4.70-6.[address] [facility] Comment on above: Order Comment: resut s after 30 minutes of incubation at 37degree C possible cold rbc agglutination Performed By: #### D IFF, CBCAD #### [place] [address] Ph. [phone] WBC (Bld) [#/Vol] 11.6 10*3/uL High 3.7-11.[address] [facility] Comment on above: Order Comment: resut s after 30 minutes of incubation at 37degree C possible cold rbc agglutination Performed By: #### D IFF, CBCAD #### [address] [address] Ph. [phone] Comprehensive Metabolic Pane alexandra 10-30-2022 Albumin [Mass/Vol] 3.6 g/dL Normal 3.5-5.0 [facility] Comment on above: Performed By: #### C MP #### [address] [address] Ph. [phone] ALP [Catalytic activity/Vol] 85 U/L Normal 38-126 [facility] Comment on above: Performed By: #### C MP #### [address] [address] Ph. [phone] ALT [Catalytic activity/Vol] 70 U/L High 0-50 [facility] Comment on above: Performed By: #### C MP #### [address] [address] Ph. [phone] AST [Catalytic activity/Vol] 38 U/L Normal 17-59 [facility] Comment on above: Performed By: #### C MP #### [address] [address] Ph. [phone] Bilirubin [Mass/Vol] 0.9 mg/dL Normal 0.2-1.3 [facility] Comment on above: Performed By: #### C MP #### [address] [address] Ph. [phone] Calcium [Mass/Vol] 8.9 mg/dL Normal 8.4-10.2 [facility] Comment on above: Performed By: #### C MP #### [place] [id number] Ph. [phone] Chloride [Moles/Vol] 102 mmol/L Normal 98-107 [facility] Comment on above: Performed By: #### C MP #### [place] [id number] Ph. [phone] CO2 [Moles/Vol] 25 mmol/L Normal 22-32 [facility] Comment on above: Performed By: #### C MP #### [place] [address] Ph. [phone] Creatinine [Mass/Vol] 1.02 mg/dL Normal 0.66-1.25 [facility] Comment on above: Performed By: #### C MP #### [place] [address] Ph. [phone] GFR/1.73 sq M.predicted among non-blacks MDRD (S/P/Bld) [Vol rate/Area] 73 mL/min/{1.73_m2} Normal >60 [facility] Comment on above: Result Comment: GFR calculated using CKD-EPI (2020) formula.\X0D0A\Stage 1 Kidney damage (e.g., protein in the urine) with normal GFR >=90\X0D0A\Stage 2 Kidney damage with mild decrease in GFR 60-89\X0D0A\Stage 3a Moderate decrease in GFR 45-59\X0D0A\Stage 3b Moderate decrease in GFR 30-44\X0D0A\Stage 4 Severe reduction in GFR 15-29\X0D0A\Stage 5 Kidney failure <15 Performed By: #### C MP #### [place] [id number] Ph. [phone] Glucose [Mass/Vol] 103 mg/dL High 65-100 [facility] Comment on above: Performed By: #### C MP #### [place] [address] Ph. [phone] Potassium [Moles/Vol] 4.5 mmol/L Normal 3.6-5.0 [facility] Comment on above: Performed By: #### C MP #### [place] [address] Ph. [phone] Protein [Mass/Vol] 6.8 g/dL Normal 6.3-8.2 [facility] Comment on above: Performed By: #### C MP #### [place] [address] Ph. [phone] Sodium [Moles/Vol] 135 mmol/L Normal 135-145 [facility] Comment on above: Performed By: #### C MP #### [place] [address] Ph. [phone] Urea nitrogen [Mass/Vol] 23 mg/dL High 9-20 [facility] Comment on above: Performed By: #### C MP #### [place] [address] Ph. [phone] DIFF REVIEWon 10-30-2022 DIFF REVIEW DIFFCOM: see comments Normal [facility] Comment on above: Order Comment: slide review rbc agglutination noted Performed By: #### D IFF, CBCAD #### [place] [address] Ph. [phone] Laboratory - Chemistry and C hemistry - challengeon 10-30-2022 Natriuretic peptide B (Bld) [Mass/Vol] 93 pg/mL 0 - 100 pg/mL [facility] Albumin [Mass/Vol] 3.6 g/dL 3.5 - 5.0 g/dL [facility] ALP (Bld) [Catalytic activity/Vol] 85 U/L 38 - 126 U/L [facility] ALT [Catalytic activity/Vol] 70 U/L High 0 - 50 U/L [facility] AST [Catalytic activity/Vol] 38 U/L 17 - 59 U/L [facility] Bilirubin [Mass/Vol] 0.9 mg/dL 0.2 - 1 .3 mg/dL [facility] Calcium [Mass/Vol] 8.9 mg/dL 8.4 - 10. 2 mg/dL [facility] Chloride [Moles/Vol] 102 mmol/L [facility] CO2 [Moles/Vol] 25 mmol/L [facility] Creatinine [Mass/Vol] 1.02 mg/dL 0.66 - 1.25 mg/dL [facility] Glucose [Mass/Vol] 103 mg/dL High 65 - 100 mg/dL [facility] Potassium [Moles/Vol] 4.5 mmol/L [facility] Protein [Mass/Vol] 6.8 g/dL 6.3 - 8.2 g/dL [facility] Sodium [Moles/Vol] 135 mmol/L [facility] Urea nitrogen (BldV) [Mass/Vol] 23 mg/dL High 9 - 20 mg/dL [facility] Laboratory - Hematology and Cell countson 10-30-2022 Basophils (Bld) [#/Vol] 0.0 10*3/uL [facility] Basophils/100 WBC (Bld) 0 % 0 - 1 % [facility] Eosinophils/100 WBC (Bld) 2 % 0 - 5 % [facility] Erythrocyte distribution width (RBC) [Ratio] 13.8 % 11.5 - 14.5 % [facility] Hematocrit (Bld) [Volume fraction] 39.9 % Low 42.0 - 52.0 % [facility] Hemoglobin (Bld) [Mass/Vol] 13.7 g/dL 13.5 - 17.5 g/dL [facility] Lymphocytes/100 WBC (Bld) 6 % Low 20 - 40 % [facility] MCH (RBC) [Entitic mass] 31.3 pg 27.0 - 35.0 pg [facility] MCHC (RBC) [Mass/Vol] 34.3 g/dL 32.0 - 36.0 g/dL [facility] MCV (RBC) [Entitic vol] 91.1 fL 80.0 - 100.0 fL [facility] Monocytes/100 WBC (Bld) 7 % 1 - 15 % [facility] Neutrophils/100 WBC (Bld) 84 % High 50 - 70 % [facility] Platelet mean volume (Bld) [Entitic vol] 10.1 fL 9.4 - 12.3 fL [facility] Platelets (Bld) [#/Vol] 180 10*3/uL [facility] RBC (Bld) [#/Vol] 4.38 10*6/uL Low [facility] WBC (Bld) [#/Vol] 11.6 10*3/uL High [facility] Laboratory - Microbiology an d Antimicrobial susceptibilityon 10-30-2022 SARS-CoV-2 (COVID-19) RNA OREN+probe Ql (Unsp spec) Not detected Not Detected [facility] No Panel Informationon 10-30 Adenovirus by PCR Not detected Not Detected [facility] Bordetella Parapertussis ([id number]) Not detected Not Detected [facility] Bordetella Parapertussis (ptxP) Not detected Not Detected [facility] Chlamydia pneumoniae By PCR Not detected Not Detected [facility] Coronavirus 229E PCR Not detected Not Detected [facility] Coronavirus HKU1 PCR Not detected Not Detected [facility] Coronavirus NL63 by PCR Not detected Not Detected [facility] Coronavirus OC43 by PCR Not detected Not Detected [facility] Human Metapneumovirus PCR Not detected Not Detected [facility] Human Rhinovirus/Enterovirus by PCR Not detected Not Detected [facility] Influenza A by PCR Not detected Not Detected [facility] Influenza B by PCR Not detected Not Detected [facility] Mycoplasma pneumoniae by PCR Not detected Not Detected [facility] Parainfluenza Virus 1 by PCR Not detected Not Detected [facility] Parainfluenza Virus 2 by PCR Not detected Not Detected [facility] Parainfluenza Virus 3 by PCR Not detected Not Detected [facility] Parainfluenza Virus 4 by PCR Not detected Not Detected [facility] RSV by PCR Not detected Not Detected [facility] Diff Comment see comments [facility] slide review rbc agglutination noted [facility] Eosinophils Absolute 0.2 [facility] Interpretation and review of laboratory results Abnormal [facility] Lymphocytes Absolute 0.7 Low [facility] Monocytes Absolute 0.8 [facility] Neutrophils Absolute 9.8 High [facility] resuts after 30 minutes of incubation at 37degree C possible cold rbc agglutination [facility] 1. Questionable left infrahilar infiltrate. 2. Slight bibasilar atelectasis. 3. Chronic changes and findings of COPD. [facility] EXAM: XR CHEST PORTABLE HISTORY: TECH NOTES: Cough Fever Emesis Shortness of breath cough COMPARISON: Two-view chest from 12/28/2020. TECHNIQUE: Portable chest was done at 7:45 PM. FINDINGS: Trachea is midline. Mediastinum is not widened. Heart size unremarkable. Sternal wires indicate prior surgery. The lungs show hyperaeration with chronic changes without pneumothorax or nodule. Mild atelectasis noted in the lung bases. Questionable mild infiltrate in the left infrahilar region. Report electronically signed by: Dr. Dashawn Dai [facility] Dashawn Dai, DO - 10/30/2022 EXAM: XR CHEST PORTABLE HISTORY: TECH NOTES: Cough Fever Emesis Shortness of breath cough COMPARISON: Two-view chest from 12/28/2020. TECHNIQUE: Portable chest was done at 7:45 PM. FINDINGS: Trachea is midline. Mediastinum is not widened. Heart size unremarkable. Sternal wires indicate prior surgery. The lungs show hyperaeration with chronic changes without pneumothorax or nodule. Mild atelectasis noted in the lung bases. Questionable mild infiltrate in the left infrahilar region. Report electronically signed by: Dr. Dashawn Dai IMPRESSION: 1. Questionable left infrahilar infiltrate. 2. Slight bibasilar atelectasis. 3. Chronic changes and findings of COPD. Schedule Savvy Phone: GFR, Estimated 73 - PINF [facility] Comment on above: GFR calculated using CKD-EPI (2020) formula. Stage 1 Kidney damage (e.g., protein in the urine) with normal GFR >=90 Stage 2 Kidney damage with mild decrease in GFR 60-89 Stage 3a Moderate decrease in GFR 45-59 Stage 3b Moderate decrease in GFR 30-44 Stage 4 Severe reduction in GFR 15-29 Stage 5 Kidney failure <15 Interpretation and review of laboratory results Abnormal [facility] Radiology Study observation (narrative) Schedule Savvy Phone: No Panel InformationOrdered By: Dashawn Dai on 10-30-2022 Schedule Savvy Phone: Respiratory Panelon 10-31-19 23 Adenovirus Not detected Normal Not Detected [facility] Comment on above: Performed By: #### R ESPAN #### [address] [address] Ph. [phone] Bordetella Parapertussis ([id number]) Not detected Normal Not Detected [facility] Comment on above: Performed By: #### R ESPAN #### [address] [address] Ph. [phone] Bordetella Parapertussis (ptxP) Not detected Normal Not Detected [facility] Comment on above: Performed By: #### R ESPWILLIAMS #### [address] [address] Ph. [phone] Chlamydia Pneumoniae Not detected Normal Not Detected [facility] Comment on above: Performed By: #### R ESPWILLIAMS #### [address] [address] Ph. [phone] Coronavirus 229E Not detected Normal Not Detected [facility] Comment on above: Performed By: #### R ESPWILLIAMS #### [address] [address] Ph. [phone] Coronavirus HKU1 Not detected Normal Not Detected [facility] Comment on above: Performed By: #### R ESPWILLIAMS #### [address] [address] Ph. [phone] Coronavirus NL63 Not detected Normal Not Detected [facility] Comment on above: Performed By: #### R ESPAN #### [address] [address] Ph. [phone] Coronavirus OC43 Not detected Normal Not Detected [facility] Comment on above: Performed By: #### R ESPWILLIAMS #### [address] [address] Ph. [phone] COV-2 RP Not detected Normal Not Detected [facility] Comment on above: Performed By: #### R ESPAN #### [address] [address] Ph. [phone] Human Metapneumovirus Not detected Normal Not Detected [facility] Comment on above: Performed By: #### R ESPAN #### [address] [address] Ph. [phone] Human Rhinovirus/Enterovirus Not detected Normal Not Detected [facility] Comment on above: Performed By: #### R ESPAN #### [address] [address] Ph. [phone] Influenza A Not detected Normal Not Detected [facility] Comment on above: Performed By: #### R ESPWILLIAMS #### [address] [address] Ph. [phone] Influenza B Not detected Normal Not Detected [facility] Comment on above: Performed By: #### R ESPAN #### [address] [address] Ph. [phone] Mycoplasma Pneumoniae Not detected Normal Not Detected [facility] Comment on above: Performed By: #### R ESPWILLIAMS #### [address] [address] Ph. [phone] Parainfluenza Virus 1 Not detected Normal Not Detected [facility] Comment on above: Performed By: #### R ESPAN #### [address] [address] Ph. [phone] Parainfluenza Virus 2 Not detected Normal Not Detected [facility] Comment on above: Performed By: #### R ESPAN #### [address] [address] Ph. [phone] Parainfluenza Virus 3 Not detected Normal Not Detected [facility] Comment on above: Performed By: #### R ESPWILLIAMS #### [facility] [address] [place] [address] Ph. [phone] Parainfluenza Virus 4 Not detected Normal Not Detected [facility] Comment on above: Performed By: #### R ESPAN #### [facility] [address] [place] [address] Ph. [phone] Respiratory Syncytial Virus Not detected Normal Not Detected [facility] Comment on above: Performed By: #### R ESPAN #### [place] [id number] [place] [address] Ph. [phone] XR CHEST PORTABLEon 10-31-19 XR CHEST PORTABLE RADRPT EXAM: XR CHEST PORTABLE HISTORY: TECH NOTES: Cough Fever Emesis Shortness of breath cough COMPARISON: Two-view chest from 12/28/2020. TECHNIQUE: Portable chest was done at 7:45 PM. FINDINGS: Trachea is midline. Mediastinum is not widened. Heart size unremarkable. Sternal wires indicate prior surgery. The lungs show hyperaeration with chronic changes without pneumothorax or nodule. Mild atelectasis noted in the lung bases. Questionable mild infiltrate in the left infrahilar region. Report electronically signed by: Dr. Dashawn Dai IMPRESSION: 1. Questionable left infrahilar infiltrate. 2. Slight bibasilar atelectasis. 3. Chronic changes and findings of COPD. Cough Fever Emesis Shortness of breath Interpreted by: Dashawn Dai DO Signed by: Dashawn Dai DO 10/30/22 Final result Normal [facility] XR Chest 2 Views*on 10-28-19 XR Chest 2 Views* Findings: Median sternotomy. Cardiopericardial silhouette normal. Aorta calcified and tortuous. Pulmonary vasculature normal. Lungs hyperinflated. Scarring left lung base. Mild blunting right costophrenic angle. IMPRESSION: Small right pleural effusion versus pleural thickening. Emphysema. Report reported and signed by Joe Davis on 10/27/2022 1621 Normal [facility] CT CHEST WITHOUT CONTRASTon 05-11-2022 CT CHEST WITHOUT CONTRAST EXAMINATION: CT CHEST WITHOUT CONTRAST HISTORY: ORDERING SYSTEM PROVIDED HISTORY: Lung nodule, > 8mm, TECHNOLOGIST PROVIDED HISTORY: Illness/Other Reason for exam: lung nodule f/u- pt has no current complaints Encounter Type: Initial Additional signs and symptoms: n/a ORDERING SYSTEM PROVIDED DIAGNOSIS CODES: R91.1 Pulmonary nodule COMPARISON: CT chest January 28, 2022. TECHNIQUE: CT examination of the chest without IV contrast. Coronal and sagittal reformations were performed. Dose reduction techniques were achieved by using automated exposure control and/or adjustment of mA and/or kV according to patient size and/or use of iterative reconstruction technique. FINDINGS: Lungs/pleura: Previously noted suspicious medial basilar segment left lower lobe nodule is no longer visualized. All lobes of the lungs show scattered small calcified nodules compatible with remote granulomatous disease. No new/suspicious lung nodules. Stable changes of scattered bandlike parenchymal scars in both lower lungs. No development of ground-glass or consolidative infiltrates. No pleural effusion. Central airways are clear. Mediastinum: There are no pathologically enlarged mediastinal or appreciable hilar lymph nodes. There are again postoperative changes of median sternotomy surgery/CABG with stable heart size and no pericardial effusion. There is heavy atherosclerotic plaquing of the descending thoracic aorta. There is stable fusiform ectasia of the ascending thoracic aorta 4.3 cm tapering at the arch. Esophagus is nondistended with a small hiatal hernia again noted. Upper abdomen: Heavy atherosclerotic plaquing of the included abdominal aorta. No acute or significant interval findings. The adrenal glands are normal. There are punctate calcifications in the liver consistent with remote granulomatous disease. 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 Multilevel spinal degenerative changes are again seen. No acute osseous abnormality. IMPRESSION: 1. Resolution of the previously noted suspicious left lower lobe nodule. 2. Sequela of remote granulomatous disease. No suspicious lung nodules. 3. Stable fusiform ectasia of the ascending thoracic aorta 4.3 cm. Heavy atherosclerotic plaquing of the aorta. 4. Chronic bandlike scars in the lower lungs. No acute pulmonary findings. 5. No intrathoracic adenopathy. 6. Small sliding hiatal hernia. [employer] Workstation ID: [id number] Dictated by: CRISTIAN BURR on MonMay 12, 2022 1:59:45 PM EDT Transcribed by: CHARLIE PETERSEN on MonMay 12, 2022 2:42:35 PM EDT Finalized by: CRISTIAN BURR on MonMay 12, 2022 5:26:02 PM EDT Normal [facility] Comment on above: Order Comment: Injur y/Trauma or Illness?:Illness/Other How long have you had these symptoms (acute/chronic)?:Chronic Reason for exam?:lung nodule f/u- pt has no current complaints Type of Exam?:Initial Additional signs and symptoms?:n/a Creatinine and Glomerular fi ltration rate.predicted panel (S/P/Bld)Ordered By: Cristian Beaver on 04-25-2022 Creatinine [Mass/Vol] 1.16 mg/dL 0.64-1.27 [facility] Estimated glomerular filtrat ion rate (GFR) non- AmericanOrdered By: Cristian Beaver on 04-25-2022 GFR/1.73 sq M.predicted among non-blacks MDRD (S/P/Bld) [Vol rate/Area] 60 mL/Min [facility] No Panel InformationOrdered By: Cristian Beaver on 04-25-2022 Estimated GFR () > 60 mL/Min [facility] Comment on above: GFR estimated refere nce range: According to KDOQI guidelines, <60 ml/min/1.73m2 is sufficient to diagnose a patient with chronic kidney disease. Pharmacy Creatinine Clearance (Chem 64.62 [facility] Serum or plasma urea nitroge n measurement (mass/volume)Ordered By: Cristian Beaver on 04-25-2022 Urea nitrogen [Mass/Vol] 14 mg/dL 9-23 [facility] COVID-19, MolecularOrdered B y: Jamalo Quitayi on 04-15-2022 SARS-CoV-2 (COVID-19) RNA OREN+probe Ql (Resp) Not detected Not Detected [facility] CT Angiogram Abdominal Aorta With Lower Extremityon 04-15-2022 1. Overall no significant change from prior imaging in December. 2. Left common femoral to tibioperoneal trunk bypass graft is patent. Single-vessel runoff in the left lower extremity below the level of the anastomosis. 3. Focal stenosis of the distal 3rd of the right SFA with occlusion of the right popliteal artery and single-vessel reconstitution of a small peroneal artery at the level of the right ankle. 4. Severe aortic atherosclerosis without aneurysm or dissection. 5. Chronic findings including severe pancolonic diverticulosis. [employer]ll Workstation ID: [id number] [employer] EXAMINATION: CT ANGIOGRAM ABDOMINAL AORTA WITH LOWER EXTREMITY HISTORY: ORDERING SYSTEM PROVIDED HISTORY: Claudication or leg ischemia, TECHNOLOGIST PROVIDED HISTORY: Illness/Other Reason for exam: Claudication or leg ischemia Encounter Type: Initial Additional signs and symptoms: Claudication or leg ischemia ORDERING SYSTEM PROVIDED DIAGNOSIS CODES: COMPARISON: Patient had the same study on 01/19/2022. TECHNIQUE: Dose reduction techniques were achieved by using automated exposure control and/or adjustment of mA and/or kV according to patient size and/or use of iterative reconstruction technique. Coronal and sagittal MIP (maximum intensity projection) images were performed. CTA performed from the lung bases through the lower extremities with IV contrast. CONTRAST: IOPAMIDOL 76 % INTRAVENOUS SOLUTION - 125 mL, FINDINGS: There is subsegmental atelectasis in both lung bases. No pleural or pericardial fluid. No adrenal mass or adenopathy. No obstructive uropathy. Portal vein is patent. Kidneys are symmetrically enhancing. No bowel obstruction or inflammation. No pneumatosis or pneumoperitoneum. Severe pancolonic diverticulosis. Normal appendix. No pelvic adenopathy or ascites. 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 The abdominal aorta remains densely calcified. SMA and celiac arteries are patent. Renal arteries are patent. Bilateral common internal and external iliac arteries are calcified but patent. On the right side, there is extensive atheromatous disease in the SFA and profunda although the vessels appear patent. There is a focal 60% stenosis in the distal 3rd of the right SFA seen best on axial image 136 of sequence 6. Below this level there is normal flow in the distal SFA and proximal popliteal artery. The distal popliteal artery is occluded with extension to the trifurcation and tibioperoneal trunk. There is some minimal reconstitution of flow in the distal right peroneal artery. On the left side, there is normal flow in the left common femoral artery and profunda. The left [place] SFA is occluded with extension through the entire length of the stented left superficial femoral artery. 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 Below the level of the distal anastomosis, there is continuous flow in the peroneal artery with no identified flow in the anterior posterior tibial arteries. [employer] Chad Weathers MD - 04/15/2022 EXAMINATION: CT ANGIOGRAM ABDOMINAL AORTA WITH LOWER EXTREMITY HISTORY: ORDERING SYSTEM PROVIDED HISTORY: Claudication or leg ischemia, TECHNOLOGIST PROVIDED HISTORY: Illness/Other Reason for exam: Claudication or leg ischemia Encounter Type: Initial Additional signs and symptoms: Claudication or leg ischemia ORDERING SYSTEM PROVIDED DIAGNOSIS CODES: COMPARISON: Patient had the same study on 01/19/2022. TECHNIQUE: Dose reduction techniques were achieved by using automated exposure control and/or adjustment of mA and/or kV according to patient size and/or use of iterative reconstruction technique. Coronal and sagittal MIP (maximum intensity projection) images were performed. CTA performed from the lung bases through the lower extremities with IV contrast. CONTRAST: IOPAMIDOL 76 % INTRAVENOUS SOLUTION - 125 mL, FINDINGS: There is subsegmental atelectasis in both lung bases. No pleural or pericardial fluid. No adrenal mass or adenopathy. No obstructive uropathy. Portal vein is patent. Kidneys are symmetrically enhancing. No bowel obstruction or inflammation. No pneumatosis or pneumoperitoneum. Severe pancolonic diverticulosis. Normal appendix. No pelvic adenopathy or ascites. 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 The abdominal aorta remains densely calcified. SMA and celiac arteries are patent. Renal arteries are patent. Bilateral common internal and external iliac arteries are calcified but patent. On the right side, there is extensive atheromatous disease in the SFA and profunda although the vessels appear patent. There is a focal 60% stenosis in the distal 3rd of the right SFA seen best on axial image 136 of sequence 6. Below this level there is normal flow in the distal SFA and proximal popliteal artery. The distal popliteal artery is occluded with extension to the trifurcation and tibioperoneal trunk. There is some minimal reconstitution of flow in the distal right peroneal artery. On the left side, there is normal flow in the left common femoral artery and profunda. The left [place] SFA is occluded with extension through the entire length of the stented left superficial femoral artery. 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 Below the level of the distal anastomosis, there is continuous flow in the peroneal artery with no identified flow in the anterior posterior tibial arteries. IMPRESSION: 1. Overall no significant change from prior imaging in December. 2. Left common femoral to tibioperoneal trunk bypass graft is patent. Single-vessel runoff in the left lower extremity below the level of the anastomosis. 3. Focal stenosis of the distal 3rd of the right SFA with occlusion of the right popliteal artery and single-vessel reconstitution of a small peroneal artery at the level of the right ankle. 4. Severe aortic atherosclerosis without aneurysm or dissection. 5. Chronic findings including severe pancolonic diverticulosis. NELYD/karie Workstation ID: [id number] [facility] CT Angiogram Abdominal Aorta With Lower ExtremityOrdered By: Chad Lezama on 04-15-2022 [facility] Work Phone: SARS-CoV-2 (COVID-19) RNA NA A+probe Ql (Resp)Ordered By: Freddie Avila on 04-15-2022 Interpretation and review of laboratory results Normal [facility] This test was performed under the FDA's Emergency Use Authorization (EUA). Testing was performed using the Joao SARS-CoV-2 RT-PCR Test on the [employer] System. This test has not been approved for use in asymptomatic patients and its performance in this patient population has not been evaluated. Negative results do not rule out the presence of SARS-CoV-2. Fact sheets for the EUA can be found at the following links: For Healthcare Providers: https://www.fda.gov/ky wandy/692261/download For Patients: https://www.fda.gov/ky wandy/898180/download [facility] Basic metabolic 2000 panelon 04-14-2022 Anion gap [Moles/Vol] 16 mmol/L 10 - 2 0 mmol/L [facility] Calcium [Mass/Vol] 9.5 mg/dL 8.4 - 10. 2 mg/dL [facility] Chloride [Moles/Vol] 105 mmol/L 98 - 10 8 mmol/L [facility] Creatinine [Mass/Vol] 0.96 mg/dL 0.80 - 1.30 mg/dL [facility] GFR/1.73 sq M.predicted CKD-EPI (S/P/Bld) [Vol rate/Area] 78 - PINF [facility] Comment on above: Estimated GFR was ca lculated using the 2020 CKD-EPI creatinine equation. Glucose [Mass/Vol] 93 mg/dL 65 - 99 mg/dL [facility] HCO3 [Moles/Vol] 24 mmol/L 21 - 32 mmol/L [facility] Interpretation and review of laboratory results Normal [facility] Potassium [Moles/Vol] 4.2 mmol/L 3.5 - 5.1 mmol/L [facility] Sodium [Moles/Vol] 141 mmol/L 135 - 145 mmol/L [facility] Urea nitrogen [Mass/Vol] 13 mg/dL 8 - 25 mg/dL [facility] Urea nitrogen/Creatinine [Mass ratio] 13.5 mg/mg 10 - 20 [facility] has implemented the eGFR calculation approach that does not have a coefficient for race that conforms to the NKF-ASN Task Force Recommendations. [facility] CBC Auto Differentialon 03-28 Basophils (Bld) [#/Vol] 0.03 10*3/uL [facility] Basophils/100 WBC (Bld) 0.5 % [facility] Eosinophils (Bld) [#/Vol] 0.11 10*3/uL [facility] Eosinophils/100 WBC (Bld) 1.9 % [facility] Erythrocyte distribution width (RBC) [Entitic vol] 13.7 % 11.6 - 14.8 % [facility] Hematocrit (Bld) [Volume fraction] 41.7 % 41 - 53 % [facility] Hemoglobin (Bld) [Mass/Vol] 14.0 g/dL 13.5 - 17.5 g/dL [facility] Immature granulocytes (Bld) [#/Vol] 0.03 10*3/uL [facility] Immature granulocytes/100 WBC (Bld) 0.50 % [facility] Comment on above: The IG parameter is the percentage of metamyelocytes, myelocytes and promyelocytes. An immature granulocyte count (IG) of 1% or more suggests the possibility of infection, an IG count of 3% is very likely related to an infection. Interpretation and review of laboratory results Abnormal [facility] Lymphocytes (Bld) [#/Vol] 0.85 10*3/uL Low [facility] Lymphocytes/100 WBC (Bld) 14.9 % [facility] MCH (RBC) [Entitic mass] 31.3 pg 26 - 34 pg [facility] MCHC (RBC) [Mass/Vol] 33.6 g/dL 31 - 37 g/dL [facility] Comment on above: Cold Agglutinin pres ent MCV (RBC) [Entitic vol] 93.3 fL 80 - 100 fL [facility] Monocytes (Bld) [#/Vol] 0.66 10*3/uL [facility] Monocytes/100 WBC (Bld) 11.6 % [facility] Neutrophils (Bld) [#/Vol] 4.01 10*3/uL [facility] Neutrophils/100 WBC (Bld) 70.6 % [facility] Nucleated RBC (Bld) [#/Vol] 0.00 10*3/uL [facility] Nucleated RBC/100 WBC (Bld) [Ratio] 0.0 % [facility] Platelet mean volume (Bld) [Entitic vol] 10.6 fL 9.4 - 12.4 fL [facility] Platelets (Bld) [#/Vol] 179 10*3/uL [facility] RBC (Bld) [#/Vol] 4.47 10*6/uL Low [facility] ealt WBC (Bld) [#/Vol] 5.69 10*3/uL [facility] Abdominal Aorta With Lower Extremityon 04-14-2022 Radiology Study observation (narrative) [facility] INR Coag (PPP) [Relative abi e]on 04-14-2022 Interpretation and review of laboratory results Normal [facility] PT Coag (PPP) [Time] 13.7 s [facility] During the induction phase of oral anticoagulation, the INR may not reflect the anticoagulation status of the patient. Therapeutic ranges for INR's are: Most clinical situations: INR 2.0-3.0 Mechanical Prosthetic Valve: INR 2.5-3.5 Critical: INR >5.0 [facility] Lavender Topon 04-14-2022 Extra Tube Hold for add-ons. [facility] Comment on above: Auto resulted. [place] Topon 04-14-2022 Extra Tube Hold for add-ons. [facility] Comment on above: Auto resulted. [facility] No Panel Informationon 04-14 Extra Tube Hold for add-ons. [facility] Comment on above: Auto resulted. 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 Conclusions * Right ankle brachial index indicates moderate peripheral artery disease. YAMILE is 0.59. * Left ankle brachial index is normal. YAMILE is 1.02. * Mild small vessel disease at the transmetatarsal level in the right foot. * Left transmetatarsal level and left toe brachial index are not obtained due to amputation. * Right toe brachial index is abnormal. . Doppler Rt Posterior Tibial: Biphasic Rt Dorsalis Pedis: Biphasic Lt Posterior Tibial: Biphasic Lt Dorsalis Pedis: Monophasic PVR Rt Ankle: Abnormal Lt Ankle: Abnormal Rt Digit: Abnormal Rt Brachial: 179 Rt Posterior Tibial: 106 Rt Dorsalis Pedis: 86 Rt Digit: 40 0.59 0.48 0.22 Lt Brachial: 179 Lt Posterior Tibial: 178 Lt Dorsalis Pedis: 183 0.99 1.02 Prior Study Date: 04/23/2021 Risk Factors Patient has a history of PAD, CAD, hypertension and hyperlipidemia. . 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 Conclusions * Right ankle brachial index indicates moderate peripheral artery disease. YAMILE is 0.59. * Left ankle brachial index is normal. YAMILE is 1.02. * Mild small vessel disease at the transmetatarsal level in the right foot. * Left transmetatarsal level and left toe brachial index are not obtained due to amputation. * Right toe brachial index is abnormal. . Doppler Rt Posterior Tibial: Biphasic Rt Dorsalis Pedis: Biphasic Lt Posterior Tibial: Biphasic Lt Dorsalis Pedis: Monophasic PVR Rt Ankle: Abnormal Lt Ankle: Abnormal Rt Digit: Abnormal Rt Brachial: 179 Rt Posterior Tibial: 106 Rt Dorsalis Pedis: 86 Rt Digit: 40 0.59 0.48 0.22 Lt Brachial: 179 Lt Posterior Tibial: 178 Lt Dorsalis Pedis: 183 0.99 1.02 Prior Study Date: 04/23/2021 Risk Factors Patient has a history of PAD, CAD, hypertension and hyperlipidemia. . Report Signatures Finalized by Richard Proctor on 04/14/2022 10:23 PM [facility] Radiology Study observation (narrative) [facility] US Doppler ankle/brachial in dexOrdered By: Richard Proctor on 04-14-2022 [facility] Work Phone: US Venous, Unilat, Lower Ext Righton 04-14-2022 US Venous, Unilat, Lower Ext Right HISTORY: Pain, swelling. FINDINGS: The deep venous system of the right lower extremity exhibits full compressibility and normal flow augmentation. These specifically include the common femoral, superficial femoral, and popliteal veins. No evidence of deep venous thrombosis is present. No cystic or soft tissue mass in the popliteal fossa. IMPRESSION: No deep venous thrombosis. Report reported and signed by Nabor Beard on 04/14/2022 [id number] Normal [facility] Audio Visual Specialist CREATININEon 01-28-2022 Creatinine [Mass/Vol] 1.32 mg/dL Critically high 0.70-1.30 [facility] Comment on above: Performed By: #### C LOULOU #### [facility] [address] [address] [address] Benedict Edmondson EGFR-AF FIJIAN >60 Normal >=60 [facility] Comment on above: Performed By: #### C LOULOU #### [facility] [address] [place], [place] [address] Dr. Benedict Edmondson EGFR-NON AF FIJIAN >60 Normal >=60 [facility] Comment on above: Performed By: #### C LOULOU #### [facility] [id number] Benedict Edmondson CT CHEST WO W CONon 01-29-20 CT CHEST WO W CON EXAMINATION: CT CHES T W CON, 01/28/2022 8:39 AM EDT HISTORY: Thoracic aortic aneurysm without rupture COMPARISON: CT chest without contrast 01/19/2022 TECHNIQUE: CT scan of the chest was performed without and with IV contrast. CT dose reduction technique was used, including Automated Exposure Control. FINDINGS: LUNGS: Numerous small calcified nodules scattered throughout the lungs. 9 mm nodule within the medial left lung base, slightly smaller previously seen. Mild bronchiectasis and scarring within lung bases. PLEURA: No mass, effusion, or pneumothorax. VASCULATURE: No abnormality. EMIL: No mass or adenopathy. MEDIASTINUM: No mass or adenopathy. CARDIAC: Marked atherosclerotic coronary artery disease. No significant enlargement. No pericardial effusion. AORTA: Mild dilation of the ascending aorta, 4.2 cm. Mild-moderate atherosclerotic disease. CHEST WALL: No mass or axillary adenopathy. BONES: No bone lesion or fracture. LIMITED ABDOMEN: No suspicious findings. Limited images of the upper abdomen. OTHER: Negative. IMPRESSION: 1. Mild aneurysmal dilation of the ascending aorta, 4.2 cm. 2. Numerous calcified nodules within the lungs compatible with chronic granulomatous disease. Slight decrease in size and outline millimeter nodule within the left lung base which was new on prior study; most likely additional granulomatous reaction. Follow-up imaging in 6 months to document stability is recommended. 3. Marked atherosclerotic coronary artery disease. Electronically authenticated by: MIKEY CALDWELL Date: 2022-01-28 17:14 Normal [facility] CBC Auto Differentialon 12-27 Basophils (Bld) [#/Vol] 0.02 10*3/uL [facility] Basophils/100 WBC (Bld) 0.5 % [facility] Eosinophils (Bld) [#/Vol] 0.18 10*3/uL [facility] Eosinophils/100 WBC (Bld) 4.4 % [facility] Erythrocyte distribution width (RBC) [Entitic vol] 14.7 % 11.6 - 14.8 % [facility] Hematocrit (Bld) [Volume fraction] 35.0 % Low 41 - 53 % [facility] Hemoglobin (Bld) [Mass/Vol] 12.1 g/dL Low 13.5 - 17.5 g/dL [facility] Immature granulocytes (Bld) [#/Vol] 0.01 10*3/uL [facility] Immature granulocytes/100 WBC (Bld) 0.20 % [facility] Comment on above: The IG parameter is the percentage of metamyelocytes, myelocytes and promyelocytes. An immature granulocyte count (IG) of 1% or more suggests the possibility of infection, an IG count of 3% is very likely related to an infection. Interpretation and review of laboratory results Abnormal [facility] Lymphocytes (Bld) [#/Vol] 0.67 10*3/uL Low [facility] Lymphocytes/100 WBC (Bld) 16.4 % [facility] MCH (RBC) [Entitic mass] 32.5 pg 26 - 34 pg [facility] MCHC (RBC) [Mass/Vol] 34.6 g/dL 31 - 37 g/dL [facility] MCV (RBC) [Entitic vol] 94.1 fL 80 - 100 fL [facility] Monocytes (Bld) [#/Vol] 0.61 10*3/uL [facility] Monocytes/100 WBC (Bld) 15.0 % [facility] Neutrophils (Bld) [#/Vol] 2.59 10*3/uL [facility] Neutrophils/100 WBC (Bld) 63.5 % [facility] Nucleated RBC (Bld) [#/Vol] 0.00 10*3/uL [facility] Nucleated RBC/100 WBC (Bld) [Ratio] 0.0 % [facility] Platelet mean volume (Bld) [Entitic vol] 10.4 fL 9.4 - 12.4 fL [facility] Platelets (Bld) [#/Vol] 119 10*3/uL Low [facility] RBC (Bld) [#/Vol] 3.72 10*6/uL Low [facility] WBC (Bld) [#/Vol] 4.08 10*3/uL Low [facility] Basic metabolic 2000 panelon 01-20-2022 Anion gap [Moles/Vol] 13 mmol/L 10 - 2 0 mmol/L [facility] Calcium [Mass/Vol] 9.2 mg/dL 8.4 - 10. 2 mg/dL [facility] Chloride [Moles/Vol] 107 mmol/L 98 - 10 8 mmol/L [facility] Creatinine [Mass/Vol] 0.93 mg/dL 0.80 - 1.30 mg/dL [facility] GFR/1.73 sq M.predicted CKD-EPI (S/P/Bld) [Vol rate/Area] 76 - PINF [facility] Glucose [Mass/Vol] 89 mg/dL 65 - 99 mg/dL [facility] HCO3 [Moles/Vol] 25 mmol/L 21 - 32 mmol/L [facility] Interpretation and review of laboratory results Normal [facility] Potassium [Moles/Vol] 4.3 mmol/L 3.5 - 5.1 mmol/L [facility] Sodium [Moles/Vol] 141 mmol/L 135 - 145 mmol/L [facility] Urea nitrogen [Mass/Vol] 12 mg/dL 8 - 25 mg/dL [facility] Urea nitrogen/Creatinine [Mass ratio] 12.9 mg/mg 10 - 20 [facility] The eGFR should be used for monitoring renal function only and not for medication dosing. [facility] CBC Auto Differentialon 12-27 Basophils (Bld) [#/Vol] 0.02 10*3/uL [facility] Basophils/100 WBC (Bld) 0.4 % [facility] Eosinophils (Bld) [#/Vol] 0.18 10*3/uL [facility] Eosinophils/100 WBC (Bld) 3.8 % [facility] Erythrocyte distribution width (RBC) [Entitic vol] 15.0 % High 11.6 - 14.8 % [facility] Hematocrit (Bld) [Volume fraction] 41.6 % 41 - 53 % [facility] Hemoglobin (Bld) [Mass/Vol] 13.7 g/dL 13.5 - 17.5 g/dL [facility] Immature granulocytes (Bld) [#/Vol] 0.02 10*3/uL [facility] Immature granulocytes/100 WBC (Bld) 0.40 % [facility] Comment on above: The IG parameter is the percentage of metamyelocytes, myelocytes and promyelocytes. An immature granulocyte count (IG) of 1% or more suggests the possibility of infection, an IG count of 3% is very likely related to an infection. Interpretation and review of laboratory results Abnormal [facility] Lymphocytes (Bld) [#/Vol] 0.65 10*3/uL Low [facility] Lymphocytes/100 WBC (Bld) 13.7 % [facility] MCH (RBC) [Entitic mass] 31.5 pg 26 - 34 pg [facility] MCHC (RBC) [Mass/Vol] 32.9 g/dL 31 - 37 g/dL O [facility] Comment on above: Cold Agglutinin pres ent MCV (RBC) [Entitic vol] 95.6 fL 80 - 100 fL [facility] Monocytes (Bld) [#/Vol] 0.57 10*3/uL [facility] Monocytes/100 WBC (Bld) 12.0 % [facility] Neutrophils (Bld) [#/Vol] 3.32 10*3/uL [facility] Neutrophils/100 WBC (Bld) 69.7 % [facility] Nucleated RBC (Bld) [#/Vol] 0.00 10*3/uL [facility] Nucleated RBC/100 WBC (Bld) [Ratio] 0.0 % [facility] Platelet mean volume (Bld) [Entitic vol] 10.9 fL 9.4 - 12.4 fL [facility] Platelets (Bld) [#/Vol] 132 10*3/uL Low [facility] RBC (Bld) [#/Vol] 4.35 10*6/uL Low [facility] Comment on above: Peripheral smear rev iewed manually WBC (Bld) [#/Vol] 4.76 10*3/uL [facility] Basic metabolic 2000 panelon 01-19-2022 Anion gap [Moles/Vol] 15 mmol/L 10 - 2 0 mmol/L [facility] Calcium [Mass/Vol] 8.4 mg/dL 8.4 - 10. 2 mg/dL [facility] Chloride [Moles/Vol] 108 mmol/L 98 - 10 8 mmol/L [facility] Creatinine [Mass/Vol] 1.08 mg/dL 0.80 - 1.30 mg/dL [facility] GFR/1.73 sq M.predicted CKD-EPI (S/P/Bld) [Vol rate/Area] 63 - PINF [facility] Glucose [Mass/Vol] 90 mg/dL 65 - 99 mg/dL [facility] HCO3 [Moles/Vol] 22 mmol/L 21 - 32 mmol/L [facility] Interpretation and review of laboratory results Normal [facility] Potassium [Moles/Vol] 4.1 mmol/L 3.5 - 5.1 mmol/L [facility] Sodium [Moles/Vol] 141 mmol/L 135 - 145 mmol/L [facility] Urea nitrogen [Mass/Vol] 13 mg/dL 8 - 25 mg/dL [facility] Urea nitrogen/Creatinine [Mass ratio] 12.0 mg/mg 10 - 20 [facility] The eGFR should be used for monitoring renal function only and not for medication dosing. [facility] CBC Auto Differentialon 12-27 Basophils (Bld) [#/Vol] 0.02 10*3/uL [facility] Basophils/100 WBC (Bld) 0.4 % [facility] Eosinophils (Bld) [#/Vol] 0.11 10*3/uL [facility] Eosinophils/100 WBC (Bld) 2.1 % [facility] Erythrocyte distribution width (RBC) [Entitic vol] 15.1 % High 11.6 - 14.8 % [facility] Hematocrit (Bld) [Volume fraction] 36.8 % Low 41 - 53 % [facility] Hemoglobin (Bld) [Mass/Vol] 12.4 g/dL Low 13.5 - 17.5 g/dL [facility] Immature granulocytes (Bld) [#/Vol] 0.01 10*3/uL [facility] Immature granulocytes/100 WBC (Bld) 0.20 % [facility] Comment on above: The IG parameter is the percentage of metamyelocytes, myelocytes and promyelocytes. An immature granulocyte count (IG) of 1% or more suggests the possibility of infection, an IG count of 3% is very likely related to an infection. Interpretation and review of laboratory results Abnormal [facility] Lymphocytes (Bld) [#/Vol] 0.79 10*3/uL Low [facility] Lymphocytes/100 WBC (Bld) 14.8 % [facility] MCH (RBC) [Entitic mass] 31.4 pg 26 - 34 pg [facility] MCHC (RBC) [Mass/Vol] 33.7 g/dL 31 - 37 g/dL [facility] MCV (RBC) [Entitic vol] 93.2 fL 80 - 100 fL [facility] Monocytes (Bld) [#/Vol] 0.66 10*3/uL [facility] Monocytes/100 WBC (Bld) 12.4 % [facility] Neutrophils (Bld) [#/Vol] 3.75 10*3/uL [facility] Neutrophils/100 WBC (Bld) 70.1 % [facility] Nucleated RBC (Bld) [#/Vol] 0.00 10*3/uL [facility] Nucleated RBC/100 WBC (Bld) [Ratio] 0.0 % [facility] Platelet mean volume (Bld) [Entitic vol] 10.7 fL 9.4 - 12.4 fL [facility] Platelets (Bld) [#/Vol] 115 10*3/uL Low [facility] RBC (Bld) [#/Vol] 3.95 10*6/uL Low [facility] WBC (Bld) [#/Vol] 5.34 10*3/uL [facility] CT Angiogram Abdominal Aorta With Lower Extremityon 01-19-2022 Left common femoral to tibioperoneal trunk bypass graft is patent. Left lower extremity edema involving the foreleg, ankle and foot concerning for cellulitis. Right peroneal artery is now noted to be occluded proximally but reconstitutes and provides the dominant blood supply to the right foot. Otherwise essentially stable CTA of the abdomen and pelvis with detailed findings as described above. New left lower lobe 1.5 cm nodule. Recommend PET CT or tissue sampling. Stable small subcentimeter hyperdense lesion seen in the pancreatic tail may represent a calcification however a small neuroendocrine tumor is a consideration and clinical correlation is recommended. Other chronic non angiographic findings as described above. Workstation ID: [id number] [employer] EXAMINATION: CT ANGIOGRAM ABDOMINAL AORTA WITH LOWER EXTREMITY HISTORY: LLE severe erythema, warmth, not exactly fitting time-course for cellulitis, assess previous graft, hx RLE aneurysm Injury/Trauma or Illness?:Illness/Other How long have you had these symptoms (acute/chronic)?:Acute Reason for exam?:LLE severe erythema, warmth, not exactly fitting time-course for cellulitis, assess previous graft, hx RLE aneurysm Type of Exam?:Initial Additional signs and symptoms?:Leg Swelling; Leg Pain; Nausea L03.116 Left leg cellulitis COMPARISON: None. TECHNIQUE: CT angiography was obtained of the chest, abdomen and pelvis after the administration of contrast amount IOPAMIDOL 76 % INTRAVENOUS SOLUTION - 125 mL,. Dose reduction techniques were achieved by using automated exposure control and/or adjustment of mA and/or kV according to patient size and/or use of iterative reconstruction technique. FINDINGS: TUBES AND IMPLANTS: Right total hip arthroplasty. Status post left distal fibular ORIF. CHEST: Moderate emphysematous changes. New 1.5 cm left lower lobe nodule. Calcified granulomata seen bilaterally. Reticular opacities at both lung bases suggest scarring. Mild cardiomegaly. Status post coronary artery bypass graft. ABDOMEN/PELVIS: ABDOMINAL WALL AND SOFT TISSUES: Edema involving the left foreleg and foot. BONES: Moderate to severe multilevel degenerative changes of the spine. Right distal femoral enchondroma. AORTA/BRANCH VESSELS: Moderate aortic calcification without aneurysm. [id number] atherosclerosis involving the iliac vessels without aneurysm or significant stenosis. LLE: The left common femoral to tibioperoneal trunk bypass graft is patent. There is occlusion of the [place] left superficial femoral artery. Again seen is occlusion of the popliteal artery and occluded popliteal artery stent. The anterior tibial artery is occluded. Again seen is occlusion of the posterior to the artery along its proximal aspect with reconstitution in the foot via collaterals from the perennial artery. Peroneal artery remains widely patent providing the dominant blood supply to the left foot. RLE: The right superficial femoral artery demonstrates moderate stenosis distally, stable. 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 Anterior to the arteries occluded at its origin. The posterior tibial artery is occluded. The peroneal artery is occluded proximally but reconstitutes and provides the dominant blood supply to the left foot. VEINS: Incompletely evaluated due to phase of imaging. LYMPH NODES: Unremarkable. PERITONEUM/ RETROPERITONEUM: Unremarkable. BOWEL: No obstruction. Colonic diverticulosis without inflammation. APPENDIX: Unremarkable. LIVER: Unremarkable GALLBLADDER: Unremarkable. BILE DUCTS: Not dilated SPLEEN: Unremarkable PANCREAS: Stable small subcentimeter hyperdense lesion seen in the tail may represent a calcification. ADRENALS: Unremarkable. KIDNEYS/ URETERS: Unremarkable. REPRODUCTIVE ORGANS: Prostatic treatment beads are noted. URINARY BLADDER: Incompletely evaluated due to beam hardening artifact. [facility] Matilda Cheng MD - 01/19/2022 EXAMINATION: CT ANGIOGRAM ABDOMINAL AORTA WITH LOWER EXTREMITY HISTORY: LLE severe erythema, warmth, not exactly fitting time-course for cellulitis, assess previous graft, hx RLE aneurysm Injury/Trauma or Illness?:Illness/Other How long have you had these symptoms (acute/chronic)?:Acute Reason for exam?:LLE severe erythema, warmth, not exactly fitting time-course for cellulitis, assess previous graft, hx RLE aneurysm Type of Exam?:Initial Additional signs and symptoms?:Leg Swelling; Leg Pain; Nausea L03.116 Left leg cellulitis COMPARISON: None. TECHNIQUE: CT angiography was obtained of the chest, abdomen and pelvis after the administration of contrast amount IOPAMIDOL 76 % INTRAVENOUS SOLUTION - 125 mL,. Dose reduction techniques were achieved by using automated exposure control and/or adjustment of mA and/or kV according to patient size and/or use of iterative reconstruction technique. FINDINGS: TUBES AND IMPLANTS: Right total hip arthroplasty. Status post left distal fibular ORIF. CHEST: Moderate emphysematous changes. New 1.5 cm left lower lobe nodule. Calcified granulomata seen bilaterally. Reticular opacities at both lung bases suggest scarring. Mild cardiomegaly. Status post coronary artery bypass graft. ABDOMEN/PELVIS: ABDOMINAL WALL AND SOFT TISSUES: Edema involving the left foreleg and foot. BONES: Moderate to severe multilevel degenerative changes of the spine. Right distal femoral enchondroma. AORTA/BRANCH VESSELS: Moderate aortic calcification without aneurysm. [id number] atherosclerosis involving the iliac vessels without aneurysm or significant stenosis. LLE: The left common femoral to tibioperoneal trunk bypass graft is patent. There is occlusion of the [place] left superficial femoral artery. Again seen is occlusion of the popliteal artery and occluded popliteal artery stent. The anterior tibial artery is occluded. Again seen is occlusion of the posterior to the artery along its proximal aspect with reconstitution in the foot via collaterals from the perennial artery. Peroneal artery remains widely patent providing the dominant blood supply to the left foot. RLE: The right superficial femoral artery demonstrates moderate stenosis distally, stable. 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 Anterior to the arteries occluded at its origin. The posterior tibial artery is occluded. The peroneal artery is occluded proximally but reconstitutes and provides the dominant blood supply to the left foot. VEINS: Incompletely evaluated due to phase of imaging. LYMPH NODES: Unremarkable. PERITONEUM/ RETROPERITONEUM: Unremarkable. BOWEL: No obstruction. Colonic diverticulosis without inflammation. APPENDIX: Unremarkable. LIVER: Unremarkable GALLBLADDER: Unremarkable. BILE DUCTS: Not dilated SPLEEN: Unremarkable PANCREAS: Stable small subcentimeter hyperdense lesion seen in the tail may represent a calcification. ADRENALS: Unremarkable. KIDNEYS/ URETERS: Unremarkable. REPRODUCTIVE ORGANS: Prostatic treatment beads are noted. URINARY BLADDER: Incompletely evaluated due to beam hardening artifact. IMPRESSION: Left common femoral to tibioperoneal trunk bypass graft is patent. Left lower extremity edema involving the foreleg, ankle and foot concerning for cellulitis. Right peroneal artery is now noted to be occluded proximally but reconstitutes and provides the dominant blood supply to the right foot. Otherwise essentially stable CTA of the abdomen and pelvis with detailed findings as described above. New left lower lobe 1.5 cm nodule. Recommend PET CT or tissue sampling. Stable small subcentimeter hyperdense lesion seen in the pancreatic tail may represent a calcification however a small neuroendocrine tumor is a consideration and clinical correlation is recommended. Other chronic non angiographic findings as described above. Workstation ID: [id number] [facility] Radiology Study observation (narrative) [facility] CT Angiogram Abdominal Aorta With Lower ExtremityOrdered By: Matilda Cheng on 01-19-2022 [facility] Work Phone: CT Chest Without Contraston 01-19-2022 1. New irregular solid 1.6 cm left lower lobe pulmonary nodule, that is suspicious for a developing primary lung cancer. A PET-CT scan or tissue sampling is recommended. 2. Background emphysema, diffuse chronic inflammatory airways disease, focal bronchiectasis and volume loss in the right middle lobe/lingula, and chronic linear scarring in both lower lobes. Numerous calcified granulomas are also again noted. No acute pulmonary process is identified. 3. Postoperative changes from CABG; extensive atherosclerosis; stable ectasia of the ascending thoracic aorta, measuring 4.3 x 4.4 cm. 4. Mild fatty infiltration of the liver again noted. 5. Small to moderate-sized sliding hiatal hernia again noted. Solitary nodule size: >8 mm *either low or high risk patients *Consider follow-up CT at 3 months, and/or CT-PET, and/or biopsy Guidelines for Management of Incidental Pulmonary Nodules Detected on CT Images: From the Fleischner Society 2017. Laura Polo et al. January 2017. DSS/pji Workstation ID: [id number] [facility] EXAMINATION: CT CHEST WITHOUT CONTRAST - 01/19/2022 AT 10:24 A.M. COMPARISON: CT angiogram abdomen, pelvis with lower extremity runoff 01/19/2022 at 1:11 a.m.; CT chest examinations dated 05/14/2021 and 12/06/2020; CT angiogram abdomen and pelvis with lower extremity runoff 10/21/2019. ADDITIONAL HISTORY: ORDERING SYSTEM PROVIDED HISTORY: Abnormal xray - lung nodule, >= 1 cm; Hemoptysis. 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 Multiplanar reconstructions were created. Dose reduction techniques were achieved by using automated exposure control and/or adjustment of mA and/or kV according to patient size and/or use of iterative reconstruction technique. FINDINGS: Again seen is mild-moderate centrilobular emphysema in both lungs along with mild bronchial wall thickening, indicative of chronic inflammatory airways disease. Asymmetric, more pronounced bullous changes again noted in the left lower lobe. There is chronic focal bronchiectasis and volume loss involving medial and lateral segments of the right middle lobe and to a lesser degree inferior segment of the lingula. Linear bands of scarring are also again seen extending through the basilar segments of both lower lobes. Numerous calcified granulomas are again seen throughout both lungs. A solid, irregular noncalcified nodule has developed in the medial basilar segment of the left lower lobe, which measures 1.1 x 1.2 x 1.6 cm, which is centered within the asymmetric bullous emphysematous changes. No other nodule or mass has developed since the prior studies. The central airways are clear. Postoperative changes from CABG are again noted with dense calcifications seen throughout the [place] coronary arteries along with coronary arterial stents. The heart remains mildly enlarged, but unchanged. There is mild fatty infiltration of the interatrial septum. There is no pericardial effusion, pleural effusion, or pneumothorax. There is mild dilatation of the central pulmonary arteries. Moderate-severe atherosclerotic changes are seen in the thoracic aorta and upper abdominal aorta. There is stable ectasia of the ascending thoracic aorta, measuring 4.3 x 4.4 cm, previously measuring the same on the 05/14/2021 CT. No enlarged lymph nodes are noted in the emil, mediastinum, or axilla. There is a small- to moderate-sized sliding hiatal hernia. There is decreased attenuation of the hepatic parenchyma, compatible with mild fatty infiltration. [facility] OscarRajiv figueroa MD - 01/19/2022 EXAMINATION: CT CHEST WITHOUT CONTRAST - 01/19/2022 AT 10:24 A.M. COMPARISON: CT angiogram abdomen, pelvis with lower extremity runoff 01/19/2022 at 1:11 a.m.; CT chest examinations dated 05/14/2021 and 12/06/2020; CT angiogram abdomen and pelvis with lower extremity runoff 10/21/2019. ADDITIONAL HISTORY: ORDERING SYSTEM PROVIDED HISTORY: Abnormal xray - lung nodule, >= 1 cm; Hemoptysis. 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 Multiplanar reconstructions were created. Dose reduction techniques were achieved by using automated exposure control and/or adjustment of mA and/or kV according to patient size and/or use of iterative reconstruction technique. FINDINGS: Again seen is mild-moderate centrilobular emphysema in both lungs along with mild bronchial wall thickening, indicative of chronic inflammatory airways disease. Asymmetric, more pronounced bullous changes again noted in the left lower lobe. There is chronic focal bronchiectasis and volume loss involving medial and lateral segments of the right middle lobe and to a lesser degree inferior segment of the lingula. Linear bands of scarring are also again seen extending through the basilar segments of both lower lobes. Numerous calcified granulomas are again seen throughout both lungs. A solid, irregular noncalcified nodule has developed in the medial basilar segment of the left lower lobe, which measures 1.1 x 1.2 x 1.6 cm, which is centered within the asymmetric bullous emphysematous changes. No other nodule or mass has developed since the prior studies. The central airways are clear. Postoperative changes from CABG are again noted with dense calcifications seen throughout the [place] coronary arteries along with coronary arterial stents. The heart remains mildly enlarged, but unchanged. There is mild fatty infiltration of the interatrial septum. There is no pericardial effusion, pleural effusion, or pneumothorax. There is mild dilatation of the central pulmonary arteries. Moderate-severe atherosclerotic changes are seen in the thoracic aorta and upper abdominal aorta. There is stable ectasia of the ascending thoracic aorta, measuring 4.3 x 4.4 cm, previously measuring the same on the 05/14/2021 CT. No enlarged lymph nodes are noted in the emil, mediastinum, or axilla. There is a small- to moderate-sized sliding hiatal hernia. There is decreased attenuation of the hepatic parenchyma, compatible with mild fatty infiltration. IMPRESSION: 1. New irregular solid 1.6 cm left lower lobe pulmonary nodule, that is suspicious for a developing primary lung cancer. A PET-CT scan or tissue sampling is recommended. 2. Background emphysema, diffuse chronic inflammatory airways disease, focal bronchiectasis and volume loss in the right middle lobe/lingula, and chronic linear scarring in both lower lobes. Numerous calcified granulomas are also again noted. No acute pulmonary process is identified. 3. Postoperative changes from CABG; extensive atherosclerosis; stable ectasia of the ascending thoracic aorta, measuring 4.3 x 4.4 cm. 4. Mild fatty infiltration of the liver again noted. 5. Small to moderate-sized sliding hiatal hernia again noted. Solitary nodule size: >8 mm *either low or high risk patients *Consider follow-up CT at 3 months, and/or CT-PET, and/or biopsy Guidelines for Management of Incidental Pulmonary Nodules Detected on CT Images: From the Fleischner Society 2017. Laura Polo, et al. January 2017. [employer] Workstation ID: [id number] [facility] Radiology Study observation (narrative) [facility] CT Chest Without ContrastOrd ered By: Rajiv Oscar on 01-19-2022 [facility] Work Phone: ECG 12 Leadon 01-19-2022 Atrial Rate 76 BPM [facility] P [place] -12 degrees [facility] P-R Interval 172 ms [facility] Q-T Interval 410 ms [facility] QRS Duration 98 ms [facility] QTC Calculation (Bezet) 461 ms [facility] R [place] 39 degrees [facility] T [place] 22 degrees [facility] Ventricular Rate [address] [facility] Sinus rhythm with occasional Premature ventricular complexes Otherwise normal ECG Confirmed by Clark Donovan M.D. ([id number]) on 01/19/2022 10:38:16 AM MUSE [facility] EKGon 01-19-2022 Ordered by an unspecified provider. [facility] Ordered by an unspecified provider. [facility] Basic metabolic 2000 panelon 01-18-2022 Anion gap [Moles/Vol] 13 mmol/L 10 - 2 0 mmol/L [facility] Calcium [Mass/Vol] 9.2 mg/dL 8.4 - 10. 2 mg/dL [facility] Chloride [Moles/Vol] 103 mmol/L 98 - 10 8 mmol/L [facility] Creatinine [Mass/Vol] 1.10 mg/dL 0.80 - 1.30 mg/dL [facility] GFR/1.73 sq M.predicted CKD-EPI (S/P/Bld) [Vol rate/Area] 62 - PINF [facility] Glucose [Mass/Vol] 107 mg/dL High 65 - 99 mg/dL [facility] HCO3 [Moles/Vol] 26 mmol/L 21 - 32 mmol/L [facility] Potassium [Moles/Vol] 4.2 mmol/L 3.5 - 5.1 mmol/L [facility] Sodium [Moles/Vol] 138 mmol/L 135 - 145 mmol/L [facility] Urea nitrogen [Mass/Vol] 14 mg/dL 8 - 25 mg/dL [facility] Urea nitrogen/Creatinine [Mass ratio] 12.7 mg/mg 10 - 20 [facility] The eGFR should be used for monitoring renal function only and not for medication dosing. [facility] CBC Auto Differentialon 12-27 Basophils (Bld) [#/Vol] 0.02 10*3/uL [facility] Basophils/100 WBC (Bld) 0.3 % [facility] Eosinophils (Bld) [#/Vol] 0.14 10*3/uL [facility] Eosinophils/100 WBC (Bld) 2.1 % [facility] Erythrocyte distribution width (RBC) [Entitic vol] 15.3 % High 11.6 - 14.8 % [facility] Hematocrit (Bld) [Volume fraction] 39.2 % Low 41 - 53 % [facility] Hemoglobin (Bld) [Mass/Vol] 14.0 g/dL 13.5 - 17.5 g/dL [facility] Immature granulocytes (Bld) [#/Vol] 0.02 10*3/uL [facility] Immature granulocytes/100 WBC (Bld) 0.30 % [facility] Comment on above: The IG parameter is the percentage of metamyelocytes, myelocytes and promyelocytes. An immature granulocyte count (IG) of 1% or more suggests the possibility of infection, an IG count of 3% is very likely related to an infection. Interpretation and review of laboratory results Abnormal [facility] Lymphocytes (Bld) [#/Vol] 0.75 10*3/uL Low [facility] Lymphocytes/100 WBC (Bld) 11.1 % [facility] MCH (RBC) [Entitic mass] 33.3 pg 26 - 34 pg [facility] MCHC (RBC) [Mass/Vol] 35.7 g/dL 31 - 37 g/dL [facility] MCV (RBC) [Entitic vol] 93.1 fL 80 - 100 fL [facility] Monocytes (Bld) [#/Vol] 0.78 10*3/uL [facility] Monocytes/100 WBC (Bld) 11.5 % [facility] Neutrophils (Bld) [#/Vol] 5.05 10*3/uL [facility] Neutrophils/100 WBC (Bld) 74.7 % [facility] Nucleated RBC (Bld) [#/Vol] 0.00 10*3/uL [facility] Nucleated RBC/100 WBC (Bld) [Ratio] 0.0 % [facility] Platelet mean volume (Bld) [Entitic vol] 10.4 fL 9.4 - 12.4 fL [facility] Platelets (Bld) [#/Vol] 150 10*3/uL [facility] RBC (Bld) [#/Vol] 4.21 10*6/uL Low [facility] WBC (Bld) [#/Vol] 6.76 10*3/uL [facility] e[facility] CRP, Inflammationon 01-19-20 CRP [Mass/Vol] 63.5 mg/L High 0 - 10 mg/L [facility] ECG 12 Leadon 01-18-2022 Mikey Mcguire MD 01/18/2022 11:27 PM ECG 12 Lead Date/Time: 01/18/2022 11:27 PM Performed by: Mikey Mcguire MD Authorized by: Mikey Mcguire MD Interpreted by ED attending physician Rhythm: sinus rhythm BPM: 76 Ectopy: PVCs Conduction: conduction normal ST Segments: ST segments normal T Waves: T waves normal Clinical impression: non-specific ECG [facility] ESR Westergren method (Bld) [Velocity]on 01-18-2022 ESR (Bld) [Velocity] 18 mm/h [facility] Interpretation and review of laboratory results Normal [facility] Friedman Topon 01-18-2022 Extra Tube Hold for add-ons. [facility] Comment on above: Auto resulted. [facility] No Panel Informationon 01-18 Extra Tube Hold for add-ons. [facility] Comment on above: Auto resulted. [facility] Interpretation and review of laboratory results Abnormal [facility] POC Venous Blood Gases with Full PanelOrdered By: Elana Chavez on 01-18-2022 Base excess Calc (BldV) [Moles/Vol] 0.2 mmol/L -2 - 2 [facility] Calcium.ionized [Mass/Vol] 4.7 mg/dL 4.5 - 5.3 mg/dL [facility] Chloride [Moles/Vol] 104 mmol/L 98 - 10 8 mmol/L [facility] CO2 (BldV) [Partial pressure] 41.3 mm[Hg] [facility] CO2 [Moles/Vol] 25 mmol/L 21 - 32 mmol/L [facility] Creatinine [Mass/Vol] 1.35 mg/dL High 0.80 - 1.30 mg/dL [facility] GFR 48 Low - PINF [facility] Glucose [Mass/Vol] 98 mg/dL 65 - 99 mg/dL [facility] Hematocrit (Bld) [Volume fraction] 42 % 41 - 53 % [facility] Hemoglobin (Bld) [Mass/Vol] 14.4 g/dL 13.5 - 17.5 g/dL [facility] Interpretation and review of laboratory results Abnormal [facility] Lactate (Bld) [Mass/Vol] 1.0 mmol/L 0.6 - 2 mmol/L [facility] Oxygen (BldV) [Partial pressure] 51 mm[Hg] High [facility] Oxygen saturation in Venous blood 85.2 % High 40 - 70 % [facility] pH (BldV) 7.40 [pH] 7.32 - 7.42 [facility] Potassium [Moles/Vol] 4.0 mmol/L 3.5 - 5.1 mmol/L [facility] Sodium [Moles/Vol] 141 mmol/L 135 - 145 mmol/L [facility] Urea nitrogen [Mass/Vol] 14 mg/dL 8 - 25 mg/dL [facility] The eGFR should be used for monitoring renal function only and not for medication dosing. [facility] Carver Topon 01-18-2022 [facility] XR Ankle Left 3+ Views (Shekhar lombardi)on 01-18-2022 FINDINGS/ Distal fibula ORIF. 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 No acute periosteal reaction. Severe tibiotalar osteoarthritis. Diffuse soft tissue edema about the remainder of the foot. No soft tissue gas. Vascular atherosclerotic soft tissue calcifications. Workstation ID: [id number] [facility] EXAMINATION: XR ANKLE LEFT 3+ VIEWS (STANDARD) 01/18/2022 9:01 pm HISTORY: ORDERING SYSTEM PROVIDED HISTORY: left ankle/stump cellulitis, r/o osteo, TECHNOLOGIST PROVIDED HISTORY: Illness/Other Reason for exam: left ankle/stump cellulitis, r/o osteo Cancer History: unk Surgery, RadiationHistory: YES Encounter Type: Unknown Additional signs and symptoms: unk ORDERING SYSTEM PROVIDED DIAGNOSIS CODES: COMPARISON: 01/18/2022 [facility] Mikey Huerta MD - 01/18/2022 EXAMINATION: XR ANKLE LEFT 3+ VIEWS (STANDARD) 01/18/2022 9:01 pm HISTORY: ORDERING SYSTEM PROVIDED HISTORY: left ankle/stump cellulitis, r/o osteo, TECHNOLOGIST PROVIDED HISTORY: Illness/Other Reason for exam: left ankle/stump cellulitis, r/o osteo Cancer History: unk Surgery, RadiationHistory: YES Encounter Type: Unknown Additional signs and symptoms: unk ORDERING SYSTEM PROVIDED DIAGNOSIS CODES: COMPARISON: 01/18/2022 IMPRESSION: FINDINGS/ Distal fibula ORIF. 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 No acute periosteal reaction. Severe tibiotalar osteoarthritis. Diffuse soft tissue edema about the remainder of the foot. No soft tissue gas. Vascular atherosclerotic soft tissue calcifications. Workstation ID: [id number] [facility] Radiology Study observation (narrative) [facility] XR Tibia Fibula Left 2 Views on 01-18-2022 FINDINGS/ Distal fibular ORIF without evidence of hardware complication. No acute fracture identified. Tricompartmental osteophytes at the knee. No periosteal reaction. Moderate to severe tibiotalar osteoarthritis. Probable vascular stent in the popliteal fossa with several surrounding surgical clips. No soft tissue gas or obvious large fluid collection. Workstation ID: [id number] [facility] EXAMINATION: XR TIBIA FIBULA LEFT 2 VIEWS 01/18/2022 8:24 pm HISTORY: ORDERING SYSTEM PROVIDED HISTORY: infx r/o gas, TECHNOLOGIST PROVIDED HISTORY: Illness/Other Reason for exam: infx r/o gas Cancer History: unk Surgery, RadiationHistory: YES Encounter Type: Unknown Additional signs and symptoms: ORDERING SYSTEM PROVIDED DIAGNOSIS CODES: COMPARISON: 10/21/2019 Mikey Burgos MD - 01/18/2022 EXAMINATION: XR TIBIA FIBULA LEFT 2 VIEWS 01/18/2022 8:24 pm HISTORY: ORDERING SYSTEM PROVIDED HISTORY: infx r/o gas, TECHNOLOGIST PROVIDED HISTORY: Illness/Other Reason for exam: infx r/o gas Cancer History: unk Surgery, RadiationHistory: YES Encounter Type: Unknown Additional signs and symptoms: ORDERING SYSTEM PROVIDED DIAGNOSIS CODES: COMPARISON: 10/21/2019 IMPRESSION: FINDINGS/ Distal fibular ORIF without evidence of hardware complication. No acute fracture identified. Tricompartmental osteophytes at the knee. No periosteal reaction. Moderate to severe tibiotalar osteoarthritis. Probable vascular stent in the popliteal fossa with several surrounding surgical clips. No soft tissue gas or obvious large fluid collection. Workstation ID: [id number] [facility] Radiology Study observation (narrative) [facility] XR Tibia Fibula Left 2 Views Ordered By: Mikey Huerta on 01-18-2022 [facility] Work Phone: CBCon 07-16-2021 ABSOLUTE BAS 0.0 10*3/uL Normal 0.0-0.2 [facility] Comment on above: Result Comment: Test ing performed at [place] [address] Performed By: #### A CBC #### [place] [address] ABSOLUTE EOS 0.00 10*3/uL Normal 0.0-0.7 [facility] Comment on above: Performed By: #### A CBC #### [place] [address] ABSOLUTE NEUTROPHIL COUNT 8.7 10*3/uL High 1.4-6.5 [facility] Comment on above: Performed By: #### A CBC #### [place] [address] Basophils/100 WBC (Bld) 0.0 % Normal 0.0-2.0 [facility] Comment on above: Performed By: #### A CBC #### Testing performed at [address] [address] DTYPE AUTO DIFF Normal [facility] Comment on above: Performed By: #### A CBC #### Testing performed at [address] [address] Eosinophils/100 WBC (Bld) 0.0 % Normal 0.0-11.0 [facility] Comment on above: Performed By: #### A CBC #### Testing performed at [address] [address] Lymphocytes (Bld) [#/Vol] 0.40 10*3/uL Low 1.2-3.4 [facility] Comment on above: Performed By: #### A CBC #### Testing performed at [address] [address] Lymphocytes/100 WBC (Bld) 4.2 % Low 20.0-55.0 [facility] Comment on above: Performed By: #### A CBC #### Testing performed at [address] [address] Monocytes (Bld) [#/Vol] 0.9 10*3/uL High 0.0-0.7 [facility] Comment on above: Performed By: #### A CBC #### Testing performed at [address] [address] Monocytes/100 WBC (Bld) 8.9 % Normal 0.0-10.0 [facility] Comment on above: Performed By: #### A CBC #### Testing performed at [address] [address] Neutrophils/100 WBC (Bld) 86.9 % High 37.0-75.0 [facility] Comment on above: Performed By: #### A CBC #### Testing performed at [address] [address] Erythrocyte distribution width (RBC) [Ratio] 15.4 % High 11.5-14.5 [facility] Comment on above: Performed By: #### A CBC #### Testing performed at [place] [id number] Hematocrit (Bld) [Volume fraction] 34.2 % Low 42.0-52.0 [facility] Comment on above: Performed By: #### A CBC #### [place] [address] Hemoglobin (Bld) [Mass/Vol] 11.7 g/dL Low 14.0-18.0 [facility] Comment on above: Performed By: #### A CBC #### [place] [address] MCH (RBC) [Entitic mass] 31.4 pg Normal 26.0-35.0 [facility] Comment on above: Performed By: #### A CBC #### [place] [address] MCHC (RBC) [Mass/Vol] 34.3 g/dL Normal 27.0-37.0 [facility] Comment on above: Performed By: #### A CBC #### [place] [address] MCV (RBC) [Entitic vol] 91.6 fL Normal 80.0-100.0 [facility] Comment on above: Performed By: #### A CBC #### [place] [address] Platelet mean volume (Bld) [Entitic vol] 8.2 fL Normal 7.4-11.0 [facility] Comment on above: Result Comment: Test ing performed at [place] [address] Performed By: #### A CBC #### [place] [address] Platelets (Bld) [#/Vol] 127 10*3/uL Low 130.0-400.0 [facility] Comment on above: Performed By: #### A CBC #### [place] [address] RBC (Bld) [#/Vol] 3.73 10*6/uL Low 4.0-6.1 [facility] Comment on above: Performed By: #### A CBC #### [place] [address] WBC (Bld) [#/Vol] 10.0 10*3/uL Normal 3.6-11.0 [facility] Comment on above: Performed By: #### A CBC #### [place] [address] NOVEL CORONAVIRUSon 20 21 NARRATIVE This test was performed using isothermal OREN and has been approved as Emergency Use Authorization (EUA) for the qualitative detection [id number] nucleic acid. Normal [facility] Comment on above: Result Comment: Test ing performed at [place] [address] Performed By: #### C OVID #### [place] [address] SARS-CoV-2 (COVID-19) RNA OREN+probe Ql (Unsp spec) Not detected Normal NOT DETECTED [facility] Comment on above: Result Comment: Nega tive results do not preclude SARS-CoV-2 infection and should not be used as the sole basis for treatment or other patient management decisions. Optimum specimen types and timing for peak viral levels during infections caused by SARS-CoV-2 has not been determined. The possibility of a false negative result should especially be considered if the patient's recent exposures or clinical presentation suggest that SARS-CoV-2 infection is probable, and diagnostic tests for other causes of illness (e.g., other respiratory illness) are negative. Collection of a new specimen and re-testing may be necessary if the patient is critically ill or clinically deteriorating. Performed By: #### C OVID #### [place] [address] TYPE AND SCREEN CROSSMATCH C ONVERTIBLEon 07-15-2021 TYPE AND SCREEN CROSSMATCH CONVERTIBLE WORKUP EXPIRES 07/18/2021,2359 ABO/RH(D) O POSITIVE ANTIBODY SCREEN NEGATIVE ARM BAND NUMBER [id number] Testing performed at [place] [address] Normal [facility] Comment on above: Performed By: #### T SCC #### Testing performed at [place] [id number] Basic Metabolic Panelon 04-30 Calcium [Mass/Vol] 9.6 mg/dL Normal 8.5-10.6 [facility] Chloride [Moles/Vol] 105 mmol/L Normal 98-107 Moun t [facility] CO2 [Moles/Vol] 29 mmol/L Normal 21-32 [facility] Creatinine [Mass/Vol] 0.99 mg/dL Normal 0.70-1.30 [facility] Glucose [Mass/Vol] 92 mg/dL Normal 70-99 [facility] Potassium [Moles/Vol] 4.6 mmol/L Normal 3.5-5.1 [facility] Sodium [Moles/Vol] 142 mmol/L Normal 136-145 [facility] Urea nitrogen (BldV) [Mass/Vol] 15 mg/dL Normal 7.0-18.0 [facility] Urea nitrogen/Creatinine [Mass ratio] 15 mg/mg Normal [facility] CBC with Differentialon 04-30 Basophils (Bld) [#/Vol] 0.0 thou/mcL Normal 0.0-0.2 [facility] Basophils/100 WBC (Bld) 0.7 % Normal 0-3 [facility] Differential cell count method Nom (Bld) AUTOMATED DIFFERENTIAL Normal Mo [facility] Eosinophils (Bld) [#/Vol] 0.0 thou/mcL Normal 0.0-0.4 [facility] Eosinophils/100 WBC (Bld) 1.2 % Normal 0-7 [facility] Lymphocytes (Bld) [#/Vol] 0.6 thou/mcL Low 0.7-4.5 [facility] Lymphocytes/100 WBC (Bld) 18.3 % Normal 14-46 [facility] Monocytes (Bld) [#/Vol] 0.5 thou/mcL Normal 0.1-1.0 [facility] Monocytes/100 WBC (Bld) 13.2 % High 4-13 [facility] Neutrophils (Bld) [#/Vol] 2.3 thou/mcL Normal 1.5-7.8 [facility] Neutrophils/100 WBC (Bld) 66.6 % Normal 40-74 [facility] Erythrocyte distribution width (RBC) [Entitic vol] 16.1 % High 11.7-15.0 [facility] Hematocrit (Bld) [Volume fraction] 38.2 % Normal 34.0-50.0 [facility] Hemoglobin (Bld) [Mass/Vol] 13.6 g/dL Normal 11.5-17.0 [facility] MCH (RBC) [Entitic mass] 33.2 Picograms Normal 27.0-34.0 [facility] MCHC (RBC) [Mass/Vol] 35.6 g/dL Normal 32.0-36.0 [facility] MCV (RBC) [Entitic vol] 93.2 fL Normal 80-98 [facility] Platelet mean volume (Bld) [Entitic vol] 8.6 fL Normal 7.5-11.2 [facility] Platelets (Bld) [#/Vol] 179 thou/mcL Normal 140-415 [facility] Comment on above: Result Comment: Annetta fied by repeat analysis RBC (Bld) [#/Vol] 4.10 x(10)6/mcL Normal 3.80-5.60 Mo [facility] WBC (Bld) [#/Vol] 3.5 thou/mcL Low 4.0-10.5 [facility] Comment on above: Result Comment: ANNETTA ADAMEED BY SLIDE REVIEW Partial Thromboplastin Time (aPTT)on 05-27-2020 aPTT Coag (PPP) [Time] 27.4 Sec Normal 23.2-34.6 Mo [facility] Prothrombin Timeon 0 INR Coag (Bld) [Relative time] 1.1 {INR} Normal [facility] Comment on above: Result Comment: MAGALYS MUNOZ THE INDUCTION PHASE OF ORAL ANTICOAGULATION, THE INR MAY NOT REFLECT THE ANTICOAGULANT STATUS OF THE PATIENT. THERAPEUTIC RANGES FOR INR'S ARE: MOST CLINICAL SITUATIONS: INR 2.0-3.0 MECHANICAL PROSTHETIC VALVES: INR 2.5-3.5 CRITICAL: INR 5.0 PT Coag (PPP) [Time] 14.5 Sec Normal 11.9-14.6 Moun t [facility] US DOPPLER CAROTIDon 020 Non-Invasive Vascula r ____ Patient: SHERRY Bazan [facility] Rec#: [id number] (Age): 1940(80y) Study Date: 03/16/2020 Room#: Type: Outpatient Sex: M ____ Reading: Radha Su DO, RVT, NATAANEL, FSVM Referring: Mohsen Sarabia MD, NATANAEL Slinger Sequins: Wagner Giron RVT, RDAR Procedure Info: [id number]... Study Quality: ____ Diagnosis: I65.23 Occlusion and stenosis of bilateral carotid arteries Carotid Duplex (Previous study 03/18/2019 ) ____ Conclusions There was a 40-59% stenosis in the right internal carotid artery. The right vertebral artery was patent with antegrade flow. Unchanged compared to prior study There was a 40-59% stenosis in the left internal carotid artery. The left vertebral artery was patent with antegrade flow. Progression of disease compared to prior study. ____ Measurements Right Carotid PSV Name Value Units PCCA 122 cm/sec DCCA 84 cm/sec PICA 117 cm/sec BENNY 122 cm/sec DICA 80 cm/sec ECA 197 cm/sec Vertebral 53 cm/sec Right Carotid EDV Name Value Units PCCA 8 cm/sec DCCA 8 cm/sec PICA 22 cm/sec BENNY 18 cm/sec DICA 15 cm/sec ECA 0 cm/sec Vertebral 7 cm/sec Left Carotid PSV Name Value Units PCCA 107 cm/sec DCCA 81 cm/sec PICA 122 cm/sec BENNY 82 cm/sec DICA 75 cm/sec ECA 159 cm/sec Vertebral 61 cm/sec Left Carotid EDV Name Value Units PCCA 8 cm/sec DCCA 11 cm/sec PICA 26 cm/sec BENNY 18 cm/sec DICA 11 cm/sec ECA 0 cm/sec Vertebral 10 cm/sec Blood Pressures and Ratios Name Value Units R ICA/CCA 1.39 ratio L ICA/CCA 1.51 ratio Electronically signed at 03/16/2020 13:09:31 by: Radha Su DO, RVT, RPVI, FSVM [facility] Interface, Rad In [facility] - 03/16/2020 1:20 PM EDT Non-Invasive Vascular ____ Patient: SHERRY Bazan Med Rec#: [id number] (Age): 1940(80y) Study Date: 03/16/2020 Room#: Type: Outpatient Sex: M ____ Reading: Radha Su DO, RVT, NATANAEL, FSVM Referring: Mohsen Sarabia MD, NATANAEL Slinger Sequins: Wagner Giron RVT, RDMS Procedure Info: [id number]... Study Quality: ____ Diagnosis: I65.23 Occlusion and stenosis of bilateral carotid arteries Carotid Duplex (Previous study 03/18/2019 ) ____ Conclusions There was a 40-59% stenosis in the right internal carotid artery. The right vertebral artery was patent with antegrade flow. Unchanged compared to prior study There was a 40-59% stenosis in the left internal carotid artery. The left vertebral artery was patent with antegrade flow. Progression of disease compared to prior study. ____ Measurements Right Carotid PSV Name Value Units PCCA 122 cm/sec DCCA 84 cm/sec PICA 117 cm/sec BENNY 122 cm/sec DICA 80 cm/sec ECA 197 cm/sec Vertebral 53 cm/sec Right Carotid EDV Name Value Units PCCA 8 cm/sec DCCA 8 cm/sec PICA 22 cm/sec BENNY 18 cm/sec DICA 15 cm/sec ECA 0 cm/sec Vertebral 7 cm/sec Left Carotid PSV Name Value Units PCCA 107 cm/sec DCCA 81 cm/sec PICA 122 cm/sec BENNY 82 cm/sec DICA 75 cm/sec ECA 159 cm/sec Vertebral 61 cm/sec Left Carotid EDV Name Value Units PCCA 8 cm/sec DCCA 11 cm/sec PICA 26 cm/sec BENNY 18 cm/sec DICA 11 cm/sec ECA 0 cm/sec Vertebral 10 cm/sec Blood Pressures and Ratios Name Value Units R ICA/CCA 1.39 ratio L ICA/CCA 1.51 ratio Electronically signed at 03/16/2020 13:09:31 by: Radha Su DO, RVT, RPLUIZA, FSYVES [facility] Ultrasound ankle / brachial indices extremity completeon 03-16-2020 Non-Invasive Vascula r ____ Patient: SHERRY Bazan [facility] Rec#: [id number] (Age): 1940(80y) Study Date: 03/16/2020 Room#: Type: Outpatient Sex: M ____ Reading: Radha Su DO, RVT, NATANAEL, FSVM Referring: Mohsen Sarabia MD, NATANAEL Slinger Sequins: Wagner Giron RVT, RDMS Procedure Info: [id number] Study Quality: ____ Diagnosis: 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 No evidence of small vessel disease at the digital level in the right foot. Left ankle brachial index is normal. 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 No evidence of small vessel disease noted at the transmetatarsal level in the right foot. Unable to evaluate small vessels in the 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 ____ Finding Grids Lower PVR Waveforms Right Left Ankle B B Transmet B _ Harper --------- B = Abnormal Toe PPG Waveforms Right Left 1st Digit B _ Harper --------- B = Abnormal Doppler Waveforms Right Left Posterior Tibial B B Dorsalis Pedis B B Harper --------- B = Biphasic Measurements Right Pressures/Ratios Name Value Units Brachial 144 mmHg Ankle (Posterior Tibial) 77 mmHg Ankle (Dorsalis Pedis) 75 mmHg Toe 54 mmHg YAMILE 0.53 ratio TBI 0.38 ratio Left Pressures/Ratios Name Value Units Brachial 137 mmHg Ankle (Posterior Tibial) 102 mmHg Ankle (Dorsalis Pedis) 135 mmHg YAMILE 0.94 ratio Previous Procedures The patient had a previous bypass graft procedure to the left popliteal artery on 09/07/2018. History CAD. Hyperlipidemia. Hypertension. PAD. 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 No evidence of small vessel disease at the digital level in the right foot. Left ankle brachial index is normal. 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 No evidence of small vessel disease noted at the transmetatarsal level in the right foot. Unable to evaluate small vessels in the 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 ____ Finding Grids Lower PVR Waveforms Right Left Ankle B B Transmet B _ Harper --------- B = Abnormal Toe PPG Waveforms Right Left 1st Digit B _ Harper --------- B = Abnormal Doppler Waveforms Right Left Posterior Tibial B B Dorsalis Pedis B B Harper --------- B = Biphasic Measurements Right Pressures/Ratios Name Value Units Brachial 144 mmHg Ankle (Posterior Tibial) 77 mmHg Ankle (Dorsalis Pedis) 75 mmHg Toe 54 mmHg YAMILE 0.53 ratio TBI 0.38 ratio Left Pressures/Ratios Name Value Units Brachial 137 mmHg Ankle (Posterior Tibial) 102 mmHg Ankle (Dorsalis Pedis) 135 mmHg YAMILE 0.94 ratio Previous Procedures The patient had a previous bypass graft procedure to the left popliteal artery on 09/07/2018. History CAD. Hyperlipidemia. Hypertension. PAD. 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 Electronically signed at 03/16/2020 13:08:20 by: Radha Su DO, RVT, RPLUIZA, FSYVES [facility] Patient Portal Messageon Patient Portal Message --- --- --- --- - -- --- --- --- --- From: Hospital, Patient Summary Visit To: TRISTIN POWELL Sent: 11/30/19 01:31:27 AM EDT Subject: New Results Available A summary regarding your recent visit is available in the Documents section of your Health Record. Normal [facility] CBCon 11-29-2019 Erythrocyte distribution width (RBC) [Entitic vol] 14.3 % Normal 11.7-15.0 [facility] Hematocrit (Bld) [Volume fraction] 33.8 % Low 34.0-50.0 [facility] Hemoglobin (Bld) [Mass/Vol] 11.8 g/dL Normal 11.5-17.0 [facility] MCH (RBC) [Entitic mass] 31.4 Picograms Normal 27.0-34.0 [facility] MCHC (RBC) [Mass/Vol] 35.0 g/dL Normal 32.0-36.0 Lucy [facility] MCV (RBC) [Entitic vol] 89.8 fL Normal 80-98 [facility] Platelet mean volume (Bld) [Entitic vol] 8.7 fL Normal 7.5-11.2 [facility] Platelets (Bld) [#/Vol] 152 thou/mcL Normal 140-415 [facility] RBC (Bld) [#/Vol] 3.77 x(10)6/mcL Low 3.80-5.60 Mo unt [facility] WBC (Bld) [#/Vol] 10.2 thou/mcL Normal 4.0-10.5 Moun t [facility] OR Nursingon 11-29-2019 OR Nursing CO NA OR Nursing Record Summary Primary Physician: Ramana Cason MD Finalized Date/Time: 11/29/19 11:47:30 Pt. Name: TRISTIN POWELL/Sex: 1940 Male Med Rec #: [id number] Physician: Ramana Cason MD Financial #: [id number] Pt. Type: I Room/Bed: [address] [place] [address] Admit/Disch: 11/28/19 05:01:00 - Institution: [facility] NA OR Case Times Entry 1 Patient Times Patient In Room 11/28/19 06:30:00 Patient Out Room 11/28/19 09:18:00 Surgical Times Start Time 11/28/19 07:05:00 Stop Time 11/28/19 09:05:00 Last Modified By: Mary Kate Baptiste RN 11/28/19 09:16:34 CO NA OR Case Attendees Entry 1 Entry 2 Entry 3 Case Attendee Ramana Cason MD , Ben Samaniego MD , Nabor Role Performed Primary Surgeon Physician Pollution Control Technician Anesthesiologist Time In 11/28/19 06:30:00 11/28/19 06:55:00 11/28/19 06:30:00 Time Out 11/28/19 08:05:00 11/28/19 09:05:00 11/28/19 09:18:00 Procedure Fusion Cervical Post Fusion Cervical Post Fusion Cervical Post with with with Decompression(Cervical ) Decompression(Cervical ) Decompression(Cervical ) Attendee Comment Relief Reason Last Modified By: Emile RN , Mary Kate Baptiste RN , Mary Kate Baptiste RN , Mary Kate Arteaga 11/28/19 09:16:36 11/28/19 09:16:36 11/28/19 09:16:36 Entry 4 Entry 5 Entry 6 Case Attendee Emile RN , Mary Kate Quintana RN , Marichuy Montesinos Role Performed seal mixing operator seal mixing operator First Scrub Time In 11/28/19 06:30:00 11/28/19 06:30:00 11/28/19 06:30:00 Time Out 11/28/19 09:18:00 11/28/19 09:18:00 11/28/19 08:40:00 Procedure Fusion Cervical Post Fusion Cervical Post Fusion Cervical Post with with with Decompression(Cervical ) Decompression(Cervical ) Decompression(Cervical ) Attendee Comment orientation Relief Reason Last Modified By: Mack RN , Karen Baptiste RN , Mary Kate Baptiste RN , Mary Kate Sal 11/29/19 11:45:51 11/28/19 09:16:36 11/28/19 09:16:36 Entry 7 Entry 8 Entry 9 Case Attendee Terri Benedict Benjamin D Case, Attendee Other Role Performed First Scrub Assistive Personnel Assistive Personnel Time In 11/28/19 06:30:00 11/28/19 06:30:00 11/28/19 06:30:00 Time Out 11/28/19 09:18:00 11/28/19 09:18:00 11/28/19 09:18:00 Procedure Fusion Cervical Post Fusion Cervical Post Fusion Cervical Post with with with Decompression(Cervical ) Decompression(Cervical ) Decompression(Cervical ) Attendee Comment orientation jagruti vest Relief Reason Last Modified By: Emile RN , Mary Kate Baptiste RN , Mary Kate Baptiste RN , Mary Kate Arteaga 11/28/19 09:16:36 11/28/19 09:16:36 11/28/19 09:16:36 Entry 10 Entry 11 Entry 12 Case Attendee Case, Attendee Other Yang Zuniga MD , Ramana Ontiveros Role Performed Acoustical Tile Drill Press Operator Lead Simulation Modeling Engineer Surgeon Time In 11/28/19 07:02:00 11/28/19 07:20:00 11/28/19 08:13:00 Time Out 11/28/19 09:18:00 11/28/19 08:16:00 11/28/19 08:32:00 Procedure Fusion Cervical Post Fusion Cervical Post Fusion Cervical Post with with with Decompression(Cervical ) Decompression(Cervical ) Decompression(Cervical ) Attendee Comment pat hurto Relief Reason Last Modified By: Mary Kate Baptiste RN, RN, Veneva M Glover RN, Veneva M 11/28/19 09:16:36 11/28/19 09:16:36 11/28/19 09:16:36 CO NA OR General Case Pile Trimmer 1 OR CO NA 01 ASA Class 3 Case Wound Class Clean Specialty Orthopedic Surgery Case Level Spine Complex Diagnosis Preop Diagnosis M48.02 M54.12 Postop Same As Preop Yes Postop Diagnosis M48.02 M54.12 This is a down time No record. Last Modified By: Mary Kate Baptiste RN 11/28/19 06:34:53 CO NA OR Surgical Procedures Entry 1 Procedure Fusion Cervical Post Primary Procedure Yes with Decompression Modifiers Cervical Procedure Wound Clean Class Primary Surgeon Oscar DIAZ , Ramana Ontiveros Surgical Service Orthopedic Surgery Anesthesia Type General Procedure Performed C3-C6 POSTERIOR CERVICAL LAMINECTOMY, FUSION AND INSTRUMENTATION Start 11/28/19 07:05:00 Stop 11/28/19 09:05:00 Last Modified By: Mary Kate Baptiste RN 11/28/19 09:06:27 CO NA OR Catheters, Drains, and Tubes Entry 1 Device Type CO DRAIN ROUND SILICONE Present on Arrival? No NATALIE 15FR [id number] Location POSTERIOR NECK Inserted By Ben Saha at End of Case? No Last Modified By: Mary Kate Baptiste RN 11/28/19 07:16:29 CO NA OR Patient Positioning Entry 1 Abdomen Pre Soft Skin Condition Warm, Dry, Intact Procedure Before Body Position Prone Pressure Points Yes Assessed? Right Arm Position At side Left Arm Position At side Arm Secured Right, Left Positioning Device Foam, Frame Prone Positioning, Pillows Right Leg Position Flexed Left Leg Position Flexed Safety Strap Applied Yes Safety Strap Thighs Location Positioned By Joe Sims, Positioning Comment PATIENT POSITIONED Mary Kate Baptiste RN, PRONE ON OR BED WITH Ramana Cason MD, HARRIET FRAME; ARMS Ben Saha TUCKED AT SIDE WITH Lilian Huerta RN , Tanner Matos BEDSHEET AND TAPE; ARMS PROTECTED WITH FOAM; PRONEVIEW HEADREST WITH FOAM; KNEES PADDED WITH FOAM AND LEGS SLIGHTLY FLEXED WITH PILLOWS UNDER LOWER LEGS TO ELEVATE TOES Procedure Fusion Cervical Post with Decompression(Cervical ) Last Modified By: Mary Kate Baptiste RN 11/28/19 07:16:56 CO NA OR Antithrombolytic Devices Entry 1 IPC Intermittent Right, Left IPC Setting PRESET Pneumatic Compression IPC Size Knee Bariatric No MAXIMILIAN Hose Foot Pump Last Modified By: Mary Kate Baptiste RN 11/28/19 07:16:59 CO NA OR Skin Prep Entry 1 Hair Removal Method Clippers Site NAPE OF NECK Performed By Ramana Cason MD Skin Prep Prep Agents Chlorhexidine Gluconate Prep Site POSTERIOR NECK 2% w Alcohol Prep by Ramana Cason MD Procedure Fusion Cervical Post with Decompression(Cervical ) Last Modified By: Mary Kate Baptiste RN 11/28/19 07:17:21 CO NA OR Fire Risk Assessment Entry 1 Alcohol Based Prep Yes Solution Dry Time >3 Minutes or According to Manufactures Instructions. No Pooling Observed. (No Alcohol Prep used Select N/A) Fire Risk Factors Yes = 1, No or N/A = 0 Procedure Yes Open O2 Source No Site/Incision Above (Face Mask/Nasal Xyphoid Process Cannula) Ignition source Yes Fire Risk Total 2 (Cautery, Laser, Score Fiberoptic Light Source) Last Modified By: Mary Kate Baptiste RN 11/28/19 07:17:31 Post-Care Text: Standard Fire Safety precautions - Score 1 or 2 Prep drying time - minimum three minutes Protected heat source (i.e bovie blackwell) Standard draping procedure HIGH RISK FIRE PRACTICES - SCORE 3 *RN verbalizes to the team the presence of high-risk score and verifies the fire triangle *Write High Risk on the white board *Verbally confirm lowest effective setting on the heat source *Minimize 02 entrapment by proper draping of the patient *Encourage use of wet sponges *Available basin with sterile water and bulb syringe for suppression *Anesthesia Awareness and communication of oxygen flows/concentration *Allow for dispersion of 02 at least 1 minute before and during electrosurgical and laser use and communicate to surgeon *Use lowest tolerable concentration of 02 (less than 30% when able) CO NA OR Surgical Safety Checklist Entry 1 Entry 2 TIme Out Verified 11/28/19 07:05:00 11/28/19 08:13:00 At: Procedure Fusion Cervical Post Fusion Cervical Post with with Decompression(Cervical ) Decompression(Cervical ) Pre-Induction Patient confirms Patient confirms Additional identity, site and identity, site and Verification procedure, Anesthesia procedure, Anesthesia safety check complete, safety check complete, pulse ox on, Confirm pulse ox on, Confirm patient allergies, patient allergies, Patient aspiration risk Patient aspiration risk was assessed and was assessed and equipment/assistance equipment/assistance available if necessary, available if necessary, Blood loss assessment; Blood loss assessment; if risk of >500 mL if risk of >500 mL blood loss (7mL/kg in blood loss (7mL/kg in children) adequate IV children) adequate IV access, fluids and/or access, fluids and/or blood products planned, blood products planned, Implants, devices, Implants, devices, special equipment special equipment available and available and functioning functioning Before Introduction of Introduction of Incision/Suspend surgical team and/or surgical team and/or all Activities new members, Entire new members, Entire (Before surgical team verbally surgical team verbally Incision/Start of confirm patient, site, confirm patient, site, Procedure) procedure, Surgeon procedure, Surgeon reviews: what are the reviews: what are the critical or unexpected critical or unexpected steps, operative steps, operative duration, and duration, and anticipated blood anticipated blood loss?, Anesthesia loss?, Anesthesia reviews: are there any reviews: are there any patient-specific patient-specific concerns?, Nursing team concerns?, Nursing team reviews: has sterility reviews: has sterility been confirmed and are been confirmed and are there any there any patient-specific patient-specific concerns?, Antibiotic concerns?, Antibiotic infused/ing and infused/ing and redosing discussed if redosing discussed if applicable, Relevant applicable, Relevant images and results images and results properly labeled and properly labeled and correctly displayed if correctly displayed if applicable applicable Fire Risk Yes Yes Assessment Completed Last Modified By: Mary Kate Baptiste RN, RN, Veneva M 11/28/19 07:17:57 11/28/19 08:17:49 CO NA OR Cautery Entry 1 Entry 2 Cautery and Settings Type Bipolar Monopolar Unit ID Number [id number] Power Setting 30 Coagulation Setting 40 Cut Setting 40 Blend Setting Liter Flow Rate Grounding Pad Thigh left posterior Location Applied By Mary Kate Baptiste RN Last Modified By: Mary Kate Baptiste RN, RN, Veneva M 11/28/19 07:18:14 11/28/19 07:18:14 CO NA OR Medication Entry 1 Entry 2 Entry 3 Times Med Administered Medication SPONGE SURGIFOAM GEL SZ CO THROMBIN SPRAY KIT COS VANCOMYCIN 1 GM 50 1973 5000 UNITS 1 VIAL POWDER VANCOCIN POWDER TOPICAL [id number] Medication Dosage 1 sheet 5000 UNITS 1 g Route of TOPICAL TOPICAL TOPICAL Administration Meds Administered By Oscar DIAZ , Ramana Cason MD , Ramana BROWER , Ben Huerta Medication Comment Last Modified By: Mack LIGHT , Karen Giron RN , Mary Kate Strickland RN N 11/29/19 11:46:31 N 11/29/19 11:46:31 11/28/19 07:19:27 Entry 4 Times Med Administered Medication CO NAROPIN 0.5% 5MG/1ML 30ML ROPIVACAINE Medication Dosage 30 ML Route of Local Administration Meds Administered By Oscar DIAZ , Ramana Ontiveros Medication Comment Last Modified By: Mary Kate Baptiste RN 11/28/19 07:19:27 CO NA OR Irrigation Entry 1 Irrigant 0.9% Saline Irrigant Volume 1000 mL Last Modified By: Mary Kate Baptiste RN 11/28/19 07:20:22 CO NA OR Implants Entry 1 Entry 2 Entry 3 Procedure Fusion Cervical Post Fusion Cervical Post Fusion Cervical Post with with with Decompression(Cervical ) Decompression(Cervical ) Decompression(Cervical ) Implant/Explant Implant Implant Implant Wasted Reason Provided by Surgeon Implant Identification Description Lineum plugs [id number] Lineum screw 3.5x14mm BETHEL LINEUM PRE-CURVED Type1 Occipital [id number] CERVICAL [id number] Sewer Connector [employer] SPINE [employer] Catalog Number [id number] Lot Number na na na Serial Number na na na Implant Site cervical, C3-6 cervical, C3-6 cervical, C3-6 Quantity 8 8 2 Expiration Date No Expiration Date Yes Yes Yes Unique Device Indent (AVE) Human Readable Machine Readable Manufactured Date Tissue Tissue Implanted Yes Yes Yes Material Used to na na na Prepare/Process Tissue Processed By: RoffeMarichuy ann Danielle J Roffey, Danielle J Last Modified By: Mary Kate Baptiste RN, RN, Veneva M Glover RN, Veneva M 11/28/19 08:25:45 11/28/19 08:25:45 11/28/19 08:34:59 CO NA OR Counts Entry 1 Entry 2 Instrument Count N/A N/A Surgeon Notified of Yes Count Sponge Count Initial Count Done 1st count correct X-ray Taken No No Sharps/Miscellaneous Initial Count Done 1st count correct Count RN Performing Count Lilian RN , Tanner Cherry RN Count Performed with Marichuy Cohen Danielle J Comment Procedure Fusion Cervical Post Fusion Cervical Post with with Decompression(Cervical ) Decompression(Cervical ) Last Modified By: Mary Kate Baptiste RN, RN, Veneva M 11/28/19 07:20:39 11/28/19 07:20:39 CO NA OR Dressing/Packing Entry 1 Dressing Dressing/Packing OIL EMULSION, 4X4, AND Comment MEDIPORE TAPE, brace Last Modified By: Mary Kate Baptiste RN 11/28/19 09:06:05 CO NA OR Temperature Regulation Entry 1 Device CO UNIT YUKI HUGGER Unit ID 6 Site LOWER BODY Setting PER ANESTHESIA Warm blankets Last Modified By: Mary Kate Baptiste RN 11/28/19 07:22:23 CO NA OR Final Count Entry 1 Sponges Correct Yes Sharps/Miscellaneous Yes Correct Instruments Correct n/a Count Performed with Marichuy Cohen RN Performing Count Lilian LIGHT , Tanner Matos Surgeon Notified of Yes Count X-ray Taken No Comment WITH PA Procedure Fusion Cervical Post with Decompression(Cervical ) Last Modified By: Mary Kate Baptiste RN 11/28/19 07:22:51 CO NA OR PNDS Risk of Impaired Skin Entry 1 Interventions/Activi Identifies physical OUTCOME STATEMENTS: The patient is free ties: alterations that may from visible signs and affect symptoms of injury procedure-specific related to positioning, positioning., Positions immobilization, the patient., pressure and/or Implements protective shearing forces. measures to prevent skin or tissue injury due to thermal, chemical, or mechanical sources., Uses supplies and equipment within safe parameters., Evaluates for signs and symptoms of injury as a result of positioning, immobilization, pressure and/or shearing forces. Last Modified By: Mary Kate Baptiste RN 11/28/19 08:18:08 CO NA OR PNDS Risk of Altered Body Temp Entry 1 Interventions/Activi Monitors body OUTCOME STATEMENT: The patient is at or ties: temperature., returning to Implements normothermia at the thermoregulation conclusion of the measures., Evaluates operative period. response to thermoregulation. Last Modified By: Mary Kate Baptiste RN 11/28/19 07:23:44 CO NA OR PNDS Risk of Infection Entry 1 INTERVENTIONS/ACTIVI Implements aseptic OUTCOME STATEMENT: The patient is free of TIES: technique., Classifies signs and symptoms of surgical wound., infection at the Assesses susceptibility conclusion of the for infection., operative period. Performs skin preparations., Protects from cross-contamination., Monitors for signs and symptoms of infection., Minimizes the length of invasive procedure planning care., Administers prescribed prophylactic treatments., Initiates traffic control., Administers care to invasive device sites., Administers care to wound sites. Last Modified By: Mary Kate Baptiste RN 11/28/19 07:23:48 CO NA OR Patient Debriefing Entry 1 Patient Debriefing Verify name of Skin Assessment Unchanged from procedure(s) performed After Pre-Procedure including site/side, Sponge and needle counts are correct Abdomen Post Soft Procedure Last Modified By: Mary Kate Baptiste RN 11/28/19 07:25:47 CO NA OR PNDS Risk of Injury Entry 1 Interventions/Activi Implements protective OUTCOME STATEMENT: The patient is free ties: measures to prevent from visible signs and injury due to symptoms of injury electrical sources., related to electrical, Implements protective mechanical, radiation measures to prevent or laser. injury due to mechanical sources, Implements latex allergy precautions as needed, Records devices implanted during invasive procedure., Performs required counts., Evaluates for signs and symptoms of laser, electrical, mechanical and radiation injury. Last Modified By: Mary Kate Baptiste RN 11/28/19 07:25:33 CO NA OR Transport from OR Entry 1 Patient Status Awakening Post-op Destination PACU Phase I Via Bed Last Modified By: Mary Kate Baptiste RN 11/28/19 07:26:24 Case Comments Finalized By: Karen Giron RN Document Signatures Signed By: Mary Kate Baptiste RN 11/28/19 09:16 Karen Giron RN 11/29/19 11:47 Normal [facility] Patient Summaryon 11-29-2019 Patient Summary PATIENT DISCHARGE INSTRUCTIONS If you are having an emergency and are not able to reach your physician, CALL 911 or go to the nearest emergency room and take this document with you. [facility] 11/29/19 11:09 [address] [place] [address] PATIENT INFORMATION Name: SHERRY TRISTIN Hortensia Address: [address] [address] Age: 79 Years Phone: [phone] : 1940 12:00 MRN: [facility])-[id number] Sex: Male Race: White Ethnicity: Not Hispan/Lat Admitted From: Clinic or [facility] Medical Service: Orthopedic Surgery Nurse Unit/Bed: (CO) 2N 0208-01 Admit Date: 11/28/2019 05:01 PCP: Flash Lovelace MD PHYSICIANS INVOLVED WITH CARE ---- Attending Physicians: Ramana Cason MD - Orthopaedic Surg Admitting Physician: Ramana Cason MD - Orthopaedic Surg Primary Care Physician:Flash Lovelace MD,Family Practice, - Consults: IWONA Wren - Internal Medicine FOLLOW-UP APPOINTMENTS: Provider: Specialty: Address: Date: Ramana Cason MD Orthopaedic Surg [address] [facility] [phone] (1) Two Weeks Comment: Call for an Appointment Provider: Specialty: Address: Date: Flash Lovelace MD Family [address] [address] (1) Follow-up as needed ALLERGIES: No Known Medication Allergies MEASUREMENTS: Last Charted: Weight: 111.4 kg /245 lbs 9 oz ( 11/28/19 05:38:00 ) MEDICATIONS For: TRISTIN POWELL This is your list of medication(s). Keep it with you at all times. Your doctor may have changed doses, add, held or stopped some of your medications. Please share this information with your family doctor. Carry this list of medications with you in case of an emergency. Update it when medications are stopped, doses are changed, or new medications (including [id number] products) are added. Ask your doctor if you have any questions. THESE ARE THE MEDICATIONS YOU SHOULD BE TAKING aspirin 81 Milligram once a day. atorvastatin (atorvastatin 40 mg oral tablet) 1 Tab(s) By Mouth once a day. Freetext Medication NEW PRESCRIPTIONS: -OXYCODONE. gabapentin (gabapentin 100 mg oral capsule) 1 Capsule By Mouth Twice a day. losartan (losartan 25 mg oral tablet) 1 Tab(s) By Mouth once a day. metoprolol (metoprolol tartrate 50 mg oral tablet) 1 Tab(s) By Mouth Twice a day. omeprazole (PriLOSEC 20 mg oral enteric coated capsule) 1 Capsule By Mouth once a day. prn. rivaroxaban (Xarelto 2.5 mg oral tablet) 1 Tab(s) By Mouth Twice a day. MEDICATION CHANGE DETAILS (Not your Final Home Medication List) During the course of your visit, your home medication list was updated with the most current information. The details of those changes are shown below: NEW MEDICATIONS Other Medications Freetext Medication NEW PRESCRIPTIONS: -OXYCODONE. Comment ____ UPDATED MEDICATIONS None UNCHANGED MEDICATIONS Other Medications aspirin 81 Milligram once a day. Comment ____ atorvastatin (atorvastatin 40 mg oral tablet) 1 Tab(s) By Mouth once a day. Comment ____ gabapentin (gabapentin 100 mg oral capsule) 1 Capsule By Mouth Twice a day. Comment ____ losartan (losartan 25 mg oral tablet) 1 Tab(s) By Mouth once a day. Comment ____ metoprolol (metoprolol tartrate 50 mg oral tablet) 1 Tab(s) By Mouth Twice a day. Comment ____ omeprazole (PriLOSEC 20 mg oral enteric coated capsule) 1 Capsule By Mouth once a day. prn. Comment ____ rivaroxaban (Xarelto 2.5 mg oral tablet) 1 Tab(s) By Mouth Twice a day. Comment ____ STOP TAKING THESE MEDICATIONS None DO NOT TAKE UNTIL YOU TALK TO YOUR DOCTOR None NON-MEDICATION PRESCRIPTION SCHEDULING PHONE NUMBER: SELECTED LAB RESULTS ____ Lab Result Order Date Hemoglobin 11.8 gm/dL 11/29/2019 Hematocrit 33.8 % 11/29/2019 WBC Count 10.2 thou/mcL 11/29/2019 Platelet Count 152 thou/mcL 11/29/2019 Glucose Blood POCT 112 mg/dL ADVANCE DIRECTIVE/HEALTH CARE DECISIONS: Advance Directive/Health Care Decisions Executed by Patient: Yes Advance Directive/Health Care Decisions Type: Living Will Copy of Advance Directive/Health Care Decisions on Chart: Patient/Family asked to provide copy SUICIDE HOTLINE: Your mental and emotional well-being are important. If you are in a mental health crisis, or having thoughts of suicide, please call the nationwide suicide hotline, anytime day or night, at 4-013-904-LDQG. Important information about accessing your health information through the [place] [facility] patient portal If you initiated the self-registration process for [facility] during your stay, please check your personal email for an invitation to enroll in [facility] and complete the steps outlined in the email. If you would prefer to enroll while in the hospital, ask a member of your care team. We would be happy to assist you. If you have already enrolled in [facility], go to [email or web address] to login and access your health information. Thank you for choosing [facility]. PATIENT EDUCATION Incentive Spirometer An incentive spirometer is a tool that can help keep your lungs clear and active. This tool measures how well you are filling your lungs with each breath. Taking long, deep breaths may help reverse or decrease the chance of developing breathing (pulmonary) problems (especially infection) following: ???Surgery of the chest or abdomen. ???Surgery if you have a history of smoking or a lung problem. ???A long period of time when you are unable to move or be active. BEFORE THE PROCEDURE ???If the spirometer includes an indicator to show your best effort, your nurse or respiratory therapist will set it to a desired goal. ???If possible, sit up straight or lean slightly forward. Try not to slouch. ???Hold the incentive spirometer in an upright position. INSTRUCTIONS FOR USE 1.??Sit on the edge of your bed if possible, or sit up as far as you can in bed or on a chair. 2.??Hold the incentive spirometer in an upright position. 3.??Breathe out normally. 4.??Place the mouthpiece in your mouth and seal your lips tightly around it. 5.??Breathe in slowly and as deeply as possible, raising the piston or the ball toward the top of the column. 6.??Hold your breath for 3?5 seconds or for as long as possible. Allow the piston or ball to fall to the bottom of the column. 7.??Remove the mouthpiece from your mouth and breathe out normally. 8.??Rest for a few seconds and repeat Steps 1 through 7 at least 10 times every 1?2 hours when you are awake. Take your time and take a few normal breaths between deep breaths. 9.??The spirometer may include an indicator to show your best effort. Use the indicator as a goal to work toward during each repetition. 10.??After each set of 10 deep breaths, practice coughing to be sure your lungs are clear. If you have an incision (the cut made at the time of surgery), support your incision when coughing by placing a pillow or rolled-up towels firmly against it. Once you are able to get out of bed, walk around indoors and cough well. You may stop using the incentive spirometer when instructed by your caregiver. RISKS AND COMPLICATIONS ???Breathing too quickly may cause dizziness. At an extreme, this could cause you to pass out. Take your time so you do not get dizzy or light-headed. ???If you are in pain, you may need to take or ask for pain medication before doing incentive spirometry. It is harder to take a deep breath if you are having pain. AFTER USE ???Rest and breathe slowly and easily. ???It can be helpful to keep a log of your progress. Your caregiver can provide you with a simple table to help with this. If you are using the spirometer at home, follow these instructions: SEEK MEDICAL CARE IF: ???You are having difficultly using the spirometer. ???You have trouble using the spirometer as often as instructed. ???Your pain medication is not giving enough relief while using the spirometer. ???You develop fever of 100.5?F (38.1?C) or higher. SEEK IMMEDIATE MEDICAL CARE IF: ???You cough up bloody sputum that had not been present before. ???You develop fever of 102?F (38.9?C) or greater. ???You develop worsening pain at or near the incision site. MAKE SURE YOU: ???Understand these instructions. ???Will watch your condition. ???Will get help right away if you are not doing well or get worse. This information is not intended to replace advice given to you by your health care provider. Make sure you discuss any questions you have with your health care provider. Document Released: 12/25/2007 Document Revised: 09/04/2015 Document Reviewed: 03/23/2015 [employer] Interactive Patient Education ?2016 [employer] Venous Thromboembolism, Prevention A venous thromboembolism is a blood clot that forms in a vein. A blood clot in a deep vein is called a deep venous thrombosis (DVT). A blood clot in the lungs is called a pulmonary embolism (PE). Blood clots are dangerous and can cause . Blood clots can form in the: ???Lungs. ???Legs. ???Arms. CAUSES ???A blood clot can form in a vein from different conditions. A blood clot can develop due to: ???Blood flow within a vein that is sluggish or very slow. ???Medical conditions that make the blood clot easily. ???Vein damage. RISK FACTORS Risk factors can increase your risk of developing a blood clot. Risk factors can include: ???Smoking. ???Obesity. ???Age. ???Immobility or sedentary lifestyle. ???Sitting or standing for long periods of time. ???Chronic or long-term bedrest. ???Medical or past history of blood clots. ???Family history of blood clots. ???Hip, leg, or pelvis injury or trauma. ???Major surgery, especially surgery on the hip, knee, or abdomen. ??? and childbirth. ??? control pills and hormone replacement therapy. ???Medical conditions such as ???Peripheral vascular disease (PVD). ???Diabetes. ???Cancer. SYMPTOMS Symptoms of VTE can depend on where the clot is located and if the clot breaks off and travels to another organ. Sometimes, there may be no symptoms. ???DVT symptoms can include: ???Swelling of the leg or arm, especially on one side. ???Warmth and redness of the leg or arm, especially on one side. ???Pain in an arm or leg. Leg pain may be more noticeable or worse when standing or walking. ???PE symptoms can include: ???Shortness of breath. ???Coughing. ???Coughing up blood or blood-tinged mucus (hemoptysis). ???Chest pain or chest pain with deep breaths (pleuritic chest pain). ???Apprehension, anxiety, or a feeling of impending doom. ???Rapid heartbeat. PREVENTION ???Exercise regularly. Take a brisk 30 minute walk every day. Staying active and moving around can help prevent blood clots. ???Avoid sitting or lying in bed for long periods of time. Change your position often, especially during a long trip. ???Women, especially those over the age of 35, should consider the risks and benefits of taking estrogen medicines. This includes control pills and hormone replacement therapy. ???Do not smoke, especially if you take estrogen medicines. If you smoke, talk to your caregiver on how to quit. ???Eat plenty of fruits and vegetables. Ask your caregiver or dietitian if there are foods you should avoid. ???Maintain a weight as suggested by your caregiver. ???Wear loose-fitting clothing. Avoid constrictive or tight clothing around your legs or waist. ???Try not to bump or injure your legs. Avoid crossing your legs when you are sitting. ???Do not use pillows under your knees unless told by your caregiver. ???Take all medicines that your caregiver prescribes you. ???Wear special stockings (compression stockings or MAXIMILIAN hose) if your caregiver prescribes them. ???Wearing compression stockings (support hose) can make the leg veins more narrow. This increases blood flow in the legs and can help prevent blood clots. ???It is important to wear compression stockings correctly. Do not let them bunch up when you are wearing them. TRAVEL Long distance travel can increase the risk of a blood clot. To prevent a blood clot when traveling: ???You should exercise your legs by walking or by pumping your muscles every hour. To help prevent poor circulation on long trips, stand, stretch, and walk up and down the aisle of your airplane, train, or bus as often as possible to get the blood moving. ???Do squats if you are able. If you are unable to do squats, raise your foot on the balls of your feet and tighten your lower leg muscles (particularly the calve muscles) while seated. Pointing (flexing and extending) your toes while tightening your calves while seated are also good exercises to do every hour during long trips. They help increase blood flow and reduce risk of DVT. ???Stay well hydrated. Drink water regularly when traveling, especially when you are sitting or immobile for long periods of time. ???Use of drugs to prevent DVT during routine travel is not generally recommended. Before taking any drugs to reduce risk of DVT, consult your caregiver. SURGERY AND HOSPITALIZATION ???People who are at high risk for a blood clot may be given a blood thinning medicine (anticoagulant) when they are hospitalized even if they are not going to have surgery. ???A long trip prior to surgery can increase the risk of a clot for patients undergoing hip and knee replacements. Talk to your caregiver about travel plans before your surgery. ???After hip or knee surgery, your caregiver may give you anticoagulants to help prevent blood clots. ???Anticoagulants may be given to people at high risk of developing thromboembolism, before, during, or sometimes after surgery, including people with clotting disorders or with a history of past thromboembolism. TRAVEL AFTER SURGERY ???In orthopedic surgery, the cutting of bones prompts the body to increase clotting factors in the blood. Due to the size of the bones involved in hip and knee replacements, there is a higher risk of blood clotting than other orthopedic surgeries. ???There is a risk of clotting for up to 4?6 weeks after surgery. Flying or traveling long distances can increase your risk of a clot. As a result, those who travel long distances may need additional preventive measures after their procedure. ???Drink only non-alcoholic beverages during your flight, train, or car travel. Alcohol can dehydrate you and increase your risk of getting blood clots. SEEK IMMEDIATE MEDICAL CARE IF: ???You develop chest pain. ???You develop severe shortness of breath. ???You have breathing problems after traveling. ???You develop swelling or pain in the leg. ???You begin to cough up bloody mucus or phlegm (sputum). ???You feel dizzy or faint. This information is not intended to replace advice given to you by your health care provider. Make sure you discuss any questions you have with your health care provider. Document Released: 08/02/2010 Document Revised: 05/08/2013 Document Reviewed: 12/09/2015 [employer] Interactive Patient Education ?2016 [employer] Preventing Constipation After Surgery Constipation is when a person has fewer than 3 bowel movements a week; has difficulty having a bowel movement; or has stools that are dry, hard, or larger than normal. Many things can make constipation likely after surgery. They include: ???Medicines, especially numbing medicines (anesthetics) and very strong pain medicines called narcotics. ???Feeling stressed because of the surgery. ???Eating different foods than normal. ???Being less active. Symptoms of constipation include: ???Having fewer than 3 bowel movements a week. ???Straining to have a bowel movement. ???Having hard, dry, or gkfsyi-uvrt-bkxwdv stools. ???Feeling full or bloated. ???Having pain in the lower abdomen. ???Not feeling relief after having a bowel movement. HOME CARE INSTRUCTIONS Diet ???Eat foods that have a lot of fiber. These include fruits, vegetables, whole grains, and beans. Limit foods high in fat and processed sugars. These include kiswahili fries, hamburgers, cookies, and candy. ???Take a fiber supplement as directed. If you are not taking a fiber supplement and think that you are not getting enough fiber from foods, talk to your health care provider about adding a fiber supplement to your diet. ???Drink clear fluids, especially water. Avoid drinking alcohol, caffeine, and soda. These can make constipation worse. ???Drink enough fluids to keep your urine clear or pale yellow. Activity ???After surgery, return to your normal activities slowly or when your health care provider says it is okay. ???Start walking as soon as you can. Try to go a little farther each day. ???Once your health care provider approves, do some sort of regular exercise. This helps prevent constipation. Bowel Movements ???Go to the restroom when you have the urge to go. Do not hold it in. ???Try drinking something hot to get a bowel movement started. ???Keep track of how often you use the restroom. If you miss 2?3 bowel movements, talk to your health care provider about medicines that prevent constipation. Your health care provider may suggest a stool softener, laxative, or fiber supplement. ???Only take swfj-hiq-dpwzrds or prescription medicines as directed by your health care provider. ???Do not take other medicines without talking to your health care provider first. If you become constipated and take a medicine to make you have a bowel movement, the problem may get worse. Other kinds of medicine can also make the problem worse. SEEK MEDICAL CARE IF: ???You used stool softeners or laxatives and still have not had a bowel movement within 24?48 hours after using them. ???You have not had a bowel movement in 3 days. SEEK IMMEDIATE MEDICAL CARE IF: ???Your constipation lasts for more than 4 days or gets worse. ???You have bright red blood in your stool. ???You have abdominal or rectal pain. ???You have very bad cramping. ???You have thin, pencil-like stools. ???You have unexplained weight loss. ???You have a fever or persistent symptoms for more than 2?3 days. ???You have a fever and your symptoms suddenly get worse. This information is not intended to replace advice given to you by your health care provider. Make sure you discuss any questions you have with your health care provider. Document Released: 12/09/2013 Document Revised: 09/04/2015 Document Reviewed: 12/09/2013 [employer] Interactive Patient Education ?2016 [employer] Pain Medicine Instructions HOW CAN PAIN MEDICINE AFFECT ME? You were given a prescription for pain medicine. This medicine may make you tired or drowsy and may affect your ability to think clearly. Pain medicine may also affect your ability to drive or perform certain physical activities. It may not be possible to make all of your pain go away, but you should be comfortable enough to move, breathe, and take care of yourself. HOW OFTEN SHOULD I TAKE PAIN MEDICINE AND HOW MUCH SHOULD I TAKE?Take pain medicine only as directed by your health care provider and only as needed for pain. ???You do not need to take pain medicine if you are not having pain, unless directed by your health care provider. ???You can take less than the prescribed dose if you find that a smaller amount of medicine controls your pain. WHAT RESTRICTIONS DO I HAVE WHILE TAKING PAIN MEDICINE? Follow these instructions after you start taking pain medicine, while you are taking the medicine, and for 8 hours after you stop taking the medicine: ???Do not drive. ???Do not operate machinery. ???Do not operate power tools. ???Do not sign legal documents. ???Do not drink alcohol. ???Do not take sleeping pills. ???Do not supervise children by yourself. ???Do not participate in activities that require climbing or being in high places. ???Do not enter a body of water?such as a [place], river, ocean, spa, or swimming pool?without an adult nearby who can monitor and help you. HOW CAN I KEEP OTHERS SAFE WHILE I AM TAKING PAIN MEDICINE?Store your pain medicine as directed by your health care provider. Make sure that it is placed where children and pets cannot reach it. ???Never share your pain medicine with anyone. ???Do not save any leftover pills. If you have any leftover pain medicine, get rid of it or destroy it as directed by your health care provider. WHAT ELSE DO I NEED TO KNOW ABOUT TAKING PAIN MEDICINE?Use a stool softener if you become constipated from your pain medicine. Increasing your intake of fruits and vegetables will also help with constipation. ???Write down the times when you take your pain medicine. Look at the times before you take your next dose of medicine. It is easy to become confused while on pain medicine. Recording the times helps you to avoid an overdose. ???If your pain is severe, do not try to treat it yourself by taking more pills than instructed on your prescription. Contact your health care provider for help. ???You may have been prescribed a pain medicine that contains acetaminophen. Do not take any other acetaminophen while taking this medicine. An overdose of acetaminophen can result in severe liver damage. Acetaminophen is found in many retm-rol-dgmaecl (OTC) and prescription medicines. If you are taking any medicines in addition to your pain medicine, check the active ingredients on those medicines to see if acetaminophen is listed. WHEN SHOULD I CALL MY HEALTH CARE PROVIDER?Your medicine is not helping to make the pain go away. ???You vomit or have diarrhea shortly after taking the medicine. ???You develop new pain in areas that did not hurt before. ???You have an allergic reaction to your medicine. This may include: ???Itchiness. ???Swelling. ???Dizziness. ???Developing a new rash. WHEN SHOULD I CALL 911 OR GO TO THE EMERGENCY ROOM?You feel dizzy or you faint. ???You are very confused or disoriented. ???You repeatedly vomit. ???Your skin or lips turn pale or bluish in color. ???You have shortness of breath or you are breathing much more slowly than usual. ???You have a severe allergic reaction to your medicine. This includes: ???Developing tongue swelling. ???Having difficulty breathing. This information is not intended to replace advice given to you by your health care provider. Make sure you discuss any questions you have with your health care provider. Document Released: 11/20/2001 Document Revised: 12/29/2015 Document Reviewed: 06/18/2015 [employer] Interactive Patient Education ?2015 [employer] PATIENT DISCHARGE INSTRUCTION Signature Page for: TRISTIN POWELL Date/Time: 11/29/2019 11:09:09 A Clinician has explained the information on my discharge instructions and has provided me with a copy. My questions have been answered to my satisfaction. Patient Signature Date/Time Responsible Party Date/Time Relationship to Patient Clinician Signature Date/Time Normal [facility] Troponin Ion 11-29-2019 Troponin I.cardiac [Mass/Vol] 0.03 ng/mL Normal <0.06 [facility] Magnesium Levelon 11-28-2019 Magnesium [Mass/Vol] 2.3 mg/dL Normal 1.8-2.4 [facility] PACU I Nursingon 11-28-2019 PACU I Nursing CO NA PACU I Nursing Record Summary Primary Physician: Ramana Cason MD Finalized Date/Time: 11/28/19 10:38:07 Pt. Name: TRISTIN POWELL/Sex: 1940 Male Med Rec #: [id number] Physician: Ramana Cason MD Financial #: [id number] Pt. Type: I Room/Bed: / Admit/Disch: 11/28/19 05:01:00 - Institution: [facility] NA OR Main PACU I Case Times Entry 1 In PACU I 11/28/19 09:19:00 Ready for PACU I 11/28/19 10:12:00 Discharge Discharge from PACU 11/28/19 10:29:00 PACU I Discharge NA I Delay Reason Last Modified By: Richie Huerta RN 11/28/19 10:38:04 CO NA OR Main PACU I Case Attendees Entry 1 Entry 2 Case Attendee Bradley LIGHT , Richie Amin RN , Maxine Tripp RN, RN Last Modified By: Richie Huerta RN, RN, Christopher W 11/28/19 10:03:10 W 11/28/19 10:03:10 Finalized By: Richie Huerta RN Document Signatures Signed By: Richie Huerta RN 11/28/19 10:38 Normal [facility] PreOp Nursingon 11-28-2019 PreOp Nursing CO NA PreOp Nursing Record Summary Primary Physician: Ramana Cason MD Finalized Date/Time: 11/28/19 07:11:59 Pt. Name: TRISTIN POWELL/Sex: 1940 Male Med Rec #: [id number] Physician: Ramana Cason MD Financial #: [id number] Pt. Type: I Room/Bed: / Admit/Disch: 11/28/19 05:01:00 - Institution: CO NA OR PreOp Case Times Entry 1 PreOp Case Times In Room Time 11/28/19 05:12:00 Out Room Time 11/28/19 06:29:00 Last Modified By: Mary Kate Baptiste RN 11/28/19 07:11:57 CO NA OR PreOp Case Attendees Entry 1 Entry 2 Case Attendee Julien LIGHT , Francy Epstein RN , Izabel Tripp RN RN Last Modified By: Maggy Velarde RN, Lauren 11/28/19 05:17:12 11/28/19 05:37:49 Finalized By: Mary Kate Baptiste RN Document Signatures Signed By: Mary Kate Baptiste RN 11/28/19 07:11 Normal [facility] Troponin Ion 11-28-2019 Troponin I.cardiac [Mass/Vol] ng/mL Normal <0.06 [facility] Troponin I.cardiac [Mass/Vol] ng/mL Normal <0.06 [facility] Basic Metabolic Panelon 10-26 Calcium [Mass/Vol] 9.6 mg/dL Normal 8.5-10.6 [facility] Chloride [Moles/Vol] 105 mmol/L Normal 98-[address] [facility] CO2 [Moles/Vol] 28 mmol/L Normal 21-32 [facility] Creatinine [Mass/Vol] 1.12 mg/dL Normal 0.70-1.30 [facility] Glucose [Mass/Vol] 91 mg/dL Normal 70-99 [facility] Potassium [Moles/Vol] 4.9 mmol/L Normal 3.5-5.1 [facility] Sodium [Moles/Vol] 141 mmol/L Normal 136-145 [facility] Urea nitrogen (BldV) [Mass/Vol] 23 mg/dL High 7.0-18.0 [facility] Urea nitrogen/Creatinine [Mass ratio] 21 mg/mg Normal [facility] CBC with Differentialon 10-26 Basophils (Bld) [#/Vol] 0.0 thou/mcL Normal 0.0-0.2 [facility] Basophils/100 WBC (Bld) 0.9 % Normal 0-3 [facility] Differential cell count method Nom (Bld) AUTOMATED DIFFERENTIAL Normal Mo [facility] Eosinophils (Bld) [#/Vol] 0.1 thou/mcL Normal 0.0-0.4 [facility] Eosinophils/100 WBC (Bld) 2.1 % Normal 0-7 [facility] Lymphocytes (Bld) [#/Vol] 0.8 thou/mcL Normal 0.7-4.5 [facility] Lymphocytes/100 WBC (Bld) 19.7 % Normal 14-46 [facility] Monocytes (Bld) [#/Vol] 0.7 thou/mcL Normal 0.1-1.0 [facility] Monocytes/100 WBC (Bld) 16.0 % High 4-13 [facility] Neutrophils (Bld) [#/Vol] 2.5 thou/mcL Normal 1.5-7.8 [facility] Neutrophils/100 WBC (Bld) 61.3 % Normal 40-74 [facility] Erythrocyte distribution width (RBC) [Entitic vol] 14.2 % Normal 11.7-15.0 [facility] Hematocrit (Bld) [Volume fraction] 39.8 % Normal 34.0-50.0 [facility] Hemoglobin (Bld) [Mass/Vol] 13.8 g/dL Normal 11.5-17.0 [facility] MCH (RBC) [Entitic mass] 31.7 Picograms Normal 27.0-34.0 [facility] MCHC (RBC) [Mass/Vol] 34.6 g/dL Normal 32.0-36.0 [facility] MCV (RBC) [Entitic vol] 91.6 fL Normal 80-98 [facility] Platelet mean volume (Bld) [Entitic vol] 8.2 fL Normal 7.5-11.2 [facility] Platelets (Bld) [#/Vol] 191 thou/mcL Normal 140-415 [facility] RBC (Bld) [#/Vol] 4.34 x(10)6/mcL Normal 3.80-5.60 [facility] WBC (Bld) [#/Vol] 4.1 thou/mcL Normal 4.0-10.5 [facility] Comment on above: Result Comment: ANNETTA DORAN BY SLIDE REVIEW Partial Thromboplastin Time (aPTT)on 11-12-2019 aPTT Coag (PPP) [Time] 28.5 Sec Normal 23.2-34.6 [facility] Prothrombin Timeon 0 INR Coag (Bld) [Relative time] 1.1 {INR} Normal [facility] Comment on above: Result Comment: MAGALYS MUNOZ THE INDUCTION PHASE OF ORAL ANTICOAGULATION, THE INR MAY NOT REFLECT THE ANTICOAGULANT STATUS OF THE PATIENT. THERAPEUTIC RANGES FOR INR'S ARE: MOST CLINICAL SITUATIONS: INR 2.0-3.0 MECHANICAL PROSTHETIC VALVES: INR 2.5-3.5 CRITICAL: INR 5.0 PT Coag (PPP) [Time] 14.5 Sec Normal 11.9-14.[address] 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 Peripheral arterial disease in the right lower extremity as detailed above, primarily infrapopliteal with single-vessel runoff to the right foot via the peroneal artery. Emphysema Coronary artery disease. Mild to moderate hiatal hernia. Workstation ID: [id number] [facility] EXAMINATION: CTA (Angiogram) OF THE ABDOMEN, PELVIS, AND LOWER EXTREMITIES HISTORY: Peripheral arterial disease status post left femoral to popliteal bypass. COMPARISON: Left foot radiograph dated 10/08/2018 TECHNIQUE: Axial images were obtained through the abdomen, pelvis, and lower extremities after the administration of intravenous contrast per CT angiogram protocol. Coronal and sagittal reformatted images were obtained. On a separate workstation [id number] volumetric images were obtained. Dose reduction techniques were achieved by using automated exposure control and/or adjustment of mA and/or kV according to patient size and/or use of iterative reconstruction technique. CONTRAST: IOPAMIDOL 76 % INTRAVENOUS SOLUTION-125 mL, FINDINGS: CTA (angiogram) ABDOMEN AND PELVIS: Aorta: The aorta is normal in caliber Celiac artery: Widely patent. The celiac artery and its major side branches are normal in caliber. There is a replaced left hepatic artery off the left gastric artery, normal variant. SMA: Widely patent. Right renal artery: Single renal artery is present. Renal artery/arteries widely patent. Left renal artery:Single renal artery is present. There is ynad-jh-vswztzak, 50-70%, narrowing of the ostium of the left renal artery.. VIV: Plaque at the origin of the inferior mesenteric artery causes vessel narrowing.. CTA (angiogram) RIGHT LOWER EXTREMITY: Common iliac artery: Plaque causes mild, approximately 50%, narrowing of the proximal common iliac artery. Normal caliber. Internal iliac artery: Plaque causes intermittent vessel narrowing. Normal caliber. External iliac artery: Widely patent Common femoral artery: Scattered plaque without significant vessel narrowing Profunda femoris artery: Scattered plaque with intermittent mild vessel narrowing Superficial femoral artery: There is scattered plaque with intermittent mild to moderate vessel narrowing. There is more focal moderate narrowing at the distal aspect of the superficial femoral artery (series 2, image 295). Popliteal artery: There is aneurysmal dilation of the popliteal arteries maximum diameter of 16 mm there is scattered plaque within the popliteal artery without significant vessel narrowing Anterior tibial artery: Occluded at its origin. Tibioperoneal trunk: Moderate to severe vessel narrowing at the distal aspect. Other areas of moderate vessel narrowing. Posterior tibial artery: Occluded at its proximal aspect. There is reconstitution of the posterior tibial artery at the level of the ankle via collaterals from the peroneal artery. Peroneal artery: There is a focal area of stenosis at the proximal aspect. Otherwise, the peroneal artery is widely patent. This is the dominant supply to the right foot.. CTA (angiogram) LEFT LOWER EXTREMITY: Common iliac artery: Widely patent. Normal caliber. Internal iliac artery: Widely patent. Normal caliber. External iliac artery: Widely patent Common femoral artery: Widely patent Bypass graft: There is a common femoral to tibioperoneal trunk bypass graft which is widely patent. Profunda femoris artery: Widely patent Superficial femoral artery: There is occlusion of the [place] superficial femoral artery in its distal aspect Popliteal artery: Occluded. There is an occluded stent within the popliteal artery Anterior tibial artery: Occluded Tibioperoneal trunk: Widely patent Posterior tibial artery: Occluded at its proximal aspect. Reconstitution of the posterior tibial artery in the foot via collaterals from the peroneal artery. Peroneal artery: Widely patent. Dominant blood supply to the left foot.. CT ABDOMEN/PELVIS/LOWER EXTREMITIES: Lower chest: Dependent changes are present in the lung bases. There is emphysema.. There are coronary artery calcifications Liver: Homogeneous enhancement of the liver is present. The liver is normal in size and contour. There is no focal lesion. Gallbladder/bile ducts: No calcified gallstones. No bile duct dilatation. Spleen: Normal in size. Adrenals: Normal. Pancreas: No peripancreatic inflammatory changes. Kidneys: There is symmetric enhancement of the kidneys. There is no hydronephrosis. There is no focal lesion. GI tract/Peritoneum: Mild to moderate hiatal hernia. Bowel is normal in caliber without evidence of obstruction. There are multiple colonic diverticula without evidence of diverticulitis. The appendix is normal. No free peritoneal fluid or free peritoneal air. 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 Bladder: Unremarkable Soft Tissues: Unremarkable. Bones: Status post amputation of the left foot at the [place] joint. There is external fixation hardware in the left fibula. There is serpiginous sclerosis in the distal femur without aggressive features, bone [place] versus enchondroma. Moderate to severe degenerative changes are present in the hips. There also degenerative changes in the spine. [facility] Interface, Rad In Fu ji Speechq - 10/21/2019 2:57 PM EST EXAMINATION: CTA (Angiogram) OF THE ABDOMEN, PELVIS, AND LOWER EXTREMITIES HISTORY: Peripheral arterial disease status post left femoral to popliteal bypass. COMPARISON: Left foot radiograph dated 10/08/2018 TECHNIQUE: Axial images were obtained through the abdomen, pelvis, and lower extremities after the administration of intravenous contrast per CT angiogram protocol. Coronal and sagittal reformatted images were obtained. On a separate workstation [id number] volumetric images were obtained. Dose reduction techniques were achieved by using automated exposure control and/or adjustment of mA and/or kV according to patient size and/or use of iterative reconstruction technique. CONTRAST: IOPAMIDOL 76 % INTRAVENOUS SOLUTION-125 mL, FINDINGS: CTA (angiogram) ABDOMEN AND PELVIS: Aorta: The aorta is normal in caliber Celiac artery: Widely patent. The celiac artery and its major side branches are normal in caliber. There is a replaced left hepatic artery off the left gastric artery, normal variant. SMA: Widely patent. Right renal artery: Single renal artery is present. Renal artery/arteries widely patent. Left renal artery:Single renal artery is present. There is qpns-yh-zcfagevs, 50-70%, narrowing of the ostium of the left renal artery.. VIV: Plaque at the origin of the inferior mesenteric artery causes vessel narrowing.. CTA (angiogram) RIGHT LOWER EXTREMITY: Common iliac artery: Plaque causes mild, approximately 50%, narrowing of the proximal common iliac artery. Normal caliber. Internal iliac artery: Plaque causes intermittent vessel narrowing. Normal caliber. External iliac artery: Widely patent Common femoral artery: Scattered plaque without significant vessel narrowing Profunda femoris artery: Scattered plaque with intermittent mild vessel narrowing Superficial femoral artery: There is scattered plaque with intermittent mild to moderate vessel narrowing. There is more focal moderate narrowing at the distal aspect of the superficial femoral artery (series 2, image 295). Popliteal artery: There is aneurysmal dilation of the popliteal arteries maximum diameter of 16 mm there is scattered plaque within the popliteal artery without significant vessel narrowing Anterior tibial artery: Occluded at its origin. Tibioperoneal trunk: Moderate to severe vessel narrowing at the distal aspect. Other areas of moderate vessel narrowing. Posterior tibial artery: Occluded at its proximal aspect. There is reconstitution of the posterior tibial artery at the level of the ankle via collaterals from the peroneal artery. Peroneal artery: There is a focal area of stenosis at the proximal aspect. Otherwise, the peroneal artery is widely patent. This is the dominant supply to the right foot.. CTA (angiogram) LEFT LOWER EXTREMITY: Common iliac artery: Widely patent. Normal caliber. Internal iliac artery: Widely patent. Normal caliber. External iliac artery: Widely patent Common femoral artery: Widely patent Bypass graft: There is a common femoral to tibioperoneal trunk bypass graft which is widely patent. Profunda femoris artery: Widely patent Superficial femoral artery: There is occlusion of the [place] superficial femoral artery in its distal aspect Popliteal artery: Occluded. There is an occluded stent within the popliteal artery Anterior tibial artery: Occluded Tibioperoneal trunk: Widely patent Posterior tibial artery: Occluded at its proximal aspect. Reconstitution of the posterior tibial artery in the foot via collaterals from the peroneal artery. Peroneal artery: Widely patent. Dominant blood supply to the left foot.. CT ABDOMEN/PELVIS/LOWER EXTREMITIES: Lower chest: Dependent changes are present in the lung bases. There is emphysema.. There are coronary artery calcifications Liver: Homogeneous enhancement of the liver is present. The liver is normal in size and contour. There is no focal lesion. Gallbladder/bile ducts: No calcified gallstones. No bile duct dilatation. Spleen: Normal in size. Adrenals: Normal. Pancreas: No peripancreatic inflammatory changes. Kidneys: There is symmetric enhancement of the kidneys. There is no hydronephrosis. There is no focal lesion. GI tract/Peritoneum: Mild to moderate hiatal hernia. Bowel is normal in caliber without evidence of obstruction. There are multiple colonic diverticula without evidence of diverticulitis. The appendix is normal. No free peritoneal fluid or free peritoneal air. 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 Bladder: Unremarkable Soft Tissues: Unremarkable. Bones: Status post amputation of the left foot at the Chopart joint. There is external fixation hardware in the left fibula. There is serpiginous sclerosis in the distal femur without aggressive features, bone island versus enchondroma. Moderate to severe degenerative changes are present in the hips. There also degenerative changes in the spine. IMPRESSION: Patent left femoral to tibioperoneal trunk bypass graft which bypasses an occluded [place] distal superficial femoral artery. 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 Peripheral arterial disease in the right lower extremity as detailed above, primarily infrapopliteal with single-vessel runoff to the right foot via the peroneal artery. Emphysema Coronary artery disease. Mild to moderate hiatal hernia. Workstation ID: [id number] [facility] POC Creatinineon 10-21-2019 Creatinine [Mass/Vol] 1.1 mg/dL 0.8 - 1.3 mg/dL [facility] Interpretation and review of laboratory results Normal [facility] Ultrasound ankle / brachial indices extremity completeon 10-09-2019 Non-Invasive Vascula r ____ Patient: SHERRY Bazan Robert Rec#: [id number] (Age): 1940(79y) Study Date: 10/09/2019 Room#: Type: Outpatient Sex: M ____ Reading: Nemo Conner MD, PhD, RVT Referring: Mohsen Sarabia MD, RPVI Slinger Sequins: Andre Madrid RDCS/RVT Procedure Info: [id number] Study Quality: Lower Arterial Doppler: adequate ____ Diagnosis: I73.9 Peripheral vascular disease, unspecified Lower Arterial Doppler ____ Conclusions Right ankle brachial index indicates mild peripheral artery disease. Toe pressure is 86 mmHg. Left ankle brachial index indicates mild peripheral artery disease. 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 Mild small vessel disease noted at the transmetatarsal level in the right foot. Toe brachial index is abnormal. Unable to evaluate small vessels in the 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 ____ The procedure was explained to the patient. The patient voiced understanding. Finding Grids Lower PVR Waveforms Right Left Ankle B B Transmet B _ Harper --------- B = Abnormal Toe PPG Waveforms Right Left 1st Digit B _ Harper --------- B = Abnormal Measurements Right Pressures/Ratios Name Value Units Brachial 150 mmHg Ankle (Posterior Tibial) 119 mmHg Ankle (Dorsalis Pedis) 105 mmHg Toe 86 mmHg YAMILE 0.79 ratio TBI 0.57 ratio Left Pressures/Ratios Name Value Units Brachial 142 mmHg Ankle (Posterior Tibial) 129 mmHg Ankle (Dorsalis Pedis) 132 mmHg YAMILE 0.88 ratio History CAD. Hypertension. PAD. History Comments:Left transmetatarsal amputation. Electronically signed at 10/09/2019 15:10:46 by: Nemo Conner MD, PhD, RVT [facility] Interface, Rad In Heartlab Xper [facility] - 10/09/2019 4:01 PM EST Non-Invasive Vascular ____ Patient: SHERRY Bazan [facility] Rec#: [id number] (Age): 1940(79y) Study Date: 10/09/2019 Room#: Type: Outpatient Sex: M ____ Reading: Nemo Conner MD, PhD, RVT Referring: Mohsen Sarabia MD, RPVI Slinger Sequins: Andre Madrid RDCS/INOCENCIO Procedure Info: [id number] Study Quality: Lower Arterial Doppler: adequate ____ Diagnosis: I73.9 Peripheral vascular disease, unspecified Lower Arterial Doppler ____ Conclusions Right ankle brachial index indicates mild peripheral artery disease. Toe pressure is 86 mmHg. Left ankle brachial index indicates mild peripheral artery disease. 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 Mild small vessel disease noted at the transmetatarsal level in the right foot. Toe brachial index is abnormal. Unable to evaluate small vessels in the 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 ____ The procedure was explained to the patient. The patient voiced understanding. Finding Grids Lower PVR Waveforms Right Left Ankle B B Transmet B _ Harper --------- B = Abnormal Toe PPG Waveforms Right Left 1st Digit B _ Harper --------- B = Abnormal Measurements Right Pressures/Ratios Name Value Units Brachial 150 mmHg Ankle (Posterior Tibial) 119 mmHg Ankle (Dorsalis Pedis) 105 mmHg Toe 86 mmHg YAMILE 0.79 ratio TBI 0.57 ratio Left Pressures/Ratios Name Value Units Brachial 142 mmHg Ankle (Posterior Tibial) 129 mmHg Ankle (Dorsalis Pedis) 132 mmHg YAMILE 0.88 ratio History CAD. Hypertension. PAD. History Comments:Left transmetatarsal amputation. Electronically signed at 10/09/2019 15:10:46 by: Nemo Conner MD, PhD, T [facility] Ultrasound duplex arterial l eg lefton 10-09-2019 Non-Invasive Vascula r ____ Patient: SHERRY Bazan Med Rec#: [id number] (Age): 1940(79y) Study Date: 10/09/2019 Room#: Type: Outpatient Sex: M ____ Reading: Nemo Conner MD, PhD, RVT [facility] Slinger Sequins: Andre Madrid RDCS/RVT Procedure Info: [id number] Study Quality: Graft Duplex: adequate ____ Diagnosis: I73.9 Peripheral vascular disease, unspecified Graft Duplex ____ Conclusions Left: Patent femoral to peroneal artery bypass graft with no evidence of hemodynamically significant stenosis. ____ The procedure was explained to the patient. The patient voiced understanding. Measurements Left PSV Name Value Units EIA 151 cm/sec COMMERCIAL LOAN REVIEWER 115 cm/sec Left Graft #1 PSV Name Value Units Inflow Artery 76.8 cm/sec Prox Anastomosis 102 cm/sec Prox Graft 80.7 cm/sec Mid Graft 60.3 cm/sec Dist Graft 69.6 cm/sec Dist Anastomosis 44.1 cm/sec Outflow Artery 72.1 cm/sec History CAD. Hypertension. History Comments:Left transmetatarsal amputation. Electronically signed at 10/09/2019 15:14:54 by: Nemo Conner MD, PhD, RVT [facility] Interface, Rad In Heartlab [facility] - 10/09/2019 4:01 PM EST Non-Invasive Vascular ____ Patient: SHERRY Jones Rec#: [id number] (Age): 1940(79y) Study Date: 10/09/2019 Room#: Type: Outpatient Sex: M ____ Reading: Nemo Conner MD, PhD, RVT Referring: ALENA Slinger Sequins: Andre Madrid RDCS/RVT Procedure Info: [id number] Study Quality: Graft Duplex: adequate ____ Diagnosis: I73.9 Peripheral vascular disease, unspecified Graft Duplex ____ Conclusions Left: Patent femoral to peroneal artery bypass graft with no evidence of hemodynamically significant stenosis. ____ The procedure was explained to the patient. The patient voiced understanding. Measurements Left PSV Name Value Units EIA 151 cm/sec COMMERCIAL LOAN REVIEWER 115 cm/sec Left Graft #1 PSV Name Value Units Inflow Artery 76.8 cm/sec Prox Anastomosis 102 cm/sec Prox Graft 80.7 cm/sec Mid Graft 60.3 cm/sec Dist Graft 69.6 cm/sec Dist Anastomosis 44.1 cm/sec Outflow Artery 72.1 cm/sec History CAD. Hypertension. History Comments:Left transmetatarsal amputation. Electronically signed at 10/09/2019 15:14:54 by: Nemo Conner MD, PhD, RVT [facility] DOPPLER CAROTIDon 019 Non-Invasive Vascula r ____ Patient: SHERRY Bazan [facility] Rec#: [id number] (Age): 1940(79y) Study Date: 03/18/2019 Room#: Type: Outpatient Sex: M ____ Reading: Radha Su DO, RVT, RPVI, FSVM Referring: Mohsen aSrabia MD, RPVI Slinger Sequins: Wagner Giron RVT, RD Procedure Info: [id number]... Study Quality: ____ Diagnosis: I65.23 Occlusion and stenosis of bilateral carotid arteries Carotid Duplex ____ Conclusions There was a 40-59% stenosis in the right internal carotid artery. The right vertebral artery was patent with antegrade flow. There was a 20-39% stenosis in the left internal carotid artery. The left vertebral artery was patent with antegrade flow. ____ Findings The left common carotid artery contained a moderate amount of plaque, heterogeneous in consistency. The left internal carotid artery contained a small amount of plaque, heterogeneous in consistency. Measurements Right Carotid PSV Name Value Units PCCA 79 cm/sec DCCA 77 cm/sec PICA 121 cm/sec BENNY 77 cm/sec DICA 86 cm/sec ECA 197 cm/sec Vertebral 80 cm/sec Right Carotid EDV Name Value Units PCCA 4 cm/sec DCCA 6 cm/sec PICA 17 cm/sec BENNY 14 cm/sec DICA 19 cm/sec ECA 0 cm/sec Vertebral 9 cm/sec Left Carotid PSV Name Value Units PCCA 111 cm/sec DCCA 78 cm/sec PICA 96 cm/sec BENNY 76 cm/sec DICA 60 cm/sec ECA 120 cm/sec Vertebral 52 cm/sec Left Carotid EDV Name Value Units PCCA 4 cm/sec DCCA 5 cm/sec PICA 20 cm/sec BENNY 16 cm/sec DICA 14 cm/sec ECA 0 cm/sec Vertebral 7 cm/sec Blood Pressures and Ratios Name Value Units R ICA/CCA 1.57 ratio L ICA/CCA 1.23 ratio Electronically signed at 03/18/2019 10:28:46 by: Radha Su DO, INOCENCIO, RPVI, FSVM [facility], [facility] 03/18/2019 10:30 AM EDT Non-Invasive Vascular ____ Patient: SHERRY Bazan [facility] Rec#: [id number] (Age): 1940(79y) Study Date: 03/18/2019 Room#: Type: Outpatient Sex: M ____ Reading: Radha Su DO, RVT, NATANAEL, FSVM Referring: Mohsen Sarabia MD, NATANAEL Slinger Sequins: Wagner Giron RVT, [facility] Procedure Info: [id number]... Study Quality: ____ Diagnosis: I65.23 Occlusion and stenosis of bilateral carotid arteries Carotid Duplex ____ Conclusions There was a 40-59% stenosis in the right internal carotid artery. The right vertebral artery was patent with antegrade flow. There was a 20-39% stenosis in the left internal carotid artery. The left vertebral artery was patent with antegrade flow. ____ Findings The left common carotid artery contained a moderate amount of plaque, heterogeneous in consistency. The left internal carotid artery contained a small amount of plaque, heterogeneous in consistency. Measurements Right Carotid PSV Name Value Units PCCA 79 cm/sec DCCA 77 cm/sec PICA 121 cm/sec BENNY 77 cm/sec DICA 86 cm/sec ECA 197 cm/sec Vertebral 80 cm/sec Right Carotid EDV Name Value Units PCCA 4 cm/sec DCCA 6 cm/sec PICA 17 cm/sec BENNY 14 cm/sec DICA 19 cm/sec ECA 0 cm/sec Vertebral 9 cm/sec Left Carotid PSV Name Value Units PCCA 111 cm/sec DCCA 78 cm/sec PICA 96 cm/sec BENNY 76 cm/sec DICA 60 cm/sec ECA 120 cm/sec Vertebral 52 cm/sec Left Carotid EDV Name Value Units PCCA 4 cm/sec DCCA 5 cm/sec PICA 20 cm/sec BENNY 16 cm/sec DICA 14 cm/sec ECA 0 cm/sec Vertebral 7 cm/sec Blood Pressures and Ratios Name Value Units R ICA/CCA 1.57 ratio L ICA/CCA 1.23 ratio Electronically signed at 03/18/2019 10:28:46 by: Radha Su DO, INOCENCIO, RPVI, FSVM [facility] Ultrasound ankle / brachial indices extremity completeon 03-13-2019 Non-Invasive Vascula r ____ Patient: SHERRY Jones Rec#: [id number] (Age): 1940(79y) Study Date: 03/13/2019 Room#: Type: Outpatient Sex: M ____ Reading: Meir Aguillon MD, RPVI Reading: [place] Referring: Mohsen Sarabia MD, RPVI Slinger Sequins: Tiffany Millan RDCS,RVT Procedure Info: [id number] Study Quality: Lower Arterial Doppler: adequate ____ 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 Moderate small vessel disease at the digital level in the right foot. Toe pressure is 65 mmHg. Left ankle brachial index indicates mild peripheral artery disease. 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 Moderate small vessel disease noted at the transmetatarsal level in the right foot. Toe brachial index is abnormal. Unable to evaluate small vessels in the 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 ____ The procedure was explained to the patient. The patient voiced understanding. Finding Grids Lower PVR Waveforms Right Left Ankle B N Transmet B _ Harper --------- B = Abnormal N = Normal Toe PPG Waveforms Right Left 1st Digit B _ Harper --------- B = Abnormal Measurements Right Pressures/Ratios Name Value Units Brachial 147 mmHg Ankle (Posterior Tibial) 121 mmHg Ankle (Dorsalis Pedis) 91 mmHg Toe 65 mmHg YAMILE 0.8 ratio TBI 0.43 ratio Left Pressures/Ratios Name Value Units Brachial 152 mmHg Ankle (Posterior Tibial) 136 mmHg Ankle (Dorsalis Pedis) 117 mmHg YAMILE 0.89 ratio Electronically signed at 03/13/2019 12:54:02 by: Meir Aguillon MD, NATANAEL [facility] Interface, Rad In Heartlab Xper [facility] - 03/13/2019 1:02 PM EDT Non-Invasive Vascular ____ Patient: SHERRY Bazan [facility] Rec#: [id number] (Age): 1940(79y) Study Date: 03/13/2019 Room#: Type: Outpatient Sex: M ____ Reading: Meir Aguillon MD, NATANAEL Reading: [place] Referring: Mohsen Sarabia MD, NATANAEL Slinger Sequins: Tiffany Millan RDCSLatricia Procedure Info: [id number] Study Quality: Lower Arterial Doppler: adequate ____ 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 Moderate small vessel disease at the digital level in the right foot. Toe pressure is 65 mmHg. Left ankle brachial index indicates mild peripheral artery disease. 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 Moderate small vessel disease noted at the transmetatarsal level in the right foot. Toe brachial index is abnormal. Unable to evaluate small vessels in the 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 ____ The procedure was explained to the patient. The patient voiced understanding. Finding Grids Lower PVR Waveforms Right Left Ankle B N Transmet B _ Harper --------- B = Abnormal N = Normal Toe PPG Waveforms Right Left 1st Digit B _ Harper --------- B = Abnormal Measurements Right Pressures/Ratios Name Value Units Brachial 147 mmHg Ankle (Posterior Tibial) 121 mmHg Ankle (Dorsalis Pedis) 91 mmHg Toe 65 mmHg YAMILE 0.8 ratio TBI 0.43 ratio Left Pressures/Ratios Name Value Units Brachial 152 mmHg Ankle (Posterior Tibial) 136 mmHg Ankle (Dorsalis Pedis) 117 mmHg YAMILE 0.89 ratio Electronically signed at 03/13/2019 12:54:02 by: Meir Aguillon MD, [facility] BMP FASTINGon 10-31-2018 Anion gap molar conc 8 mmol/L Normal 8-16 [facility] Calcium mass conc 9.6 mg/dL Normal 8.4-10.2 [facility] Chloride molar conc 104 mmol/L Normal 98-107 [facility] Comment on above: Result Comment: Jenna phoenix note: Triglyceride levels of 600mg/dL or higher may positively bias chloride results by approximately 2.1 mmol CO2 molar conc 28 mmol/L Normal 22-30 [facility] Creatinine mass conc 0.8 mg/dL Normal 0.7-1.2 [facility] EST. GFR, >60 Normal [facility] EST. GFR,Non >60 Normal [facility] GFR/1.73 sq M predicted among non-blacks MDRD vol rate/area (S/P/Bld) Average GFR for 70+ years old = 75. 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 Kidney failure, GFR = <15. The GFR estimate is not adjusted for extreme body surface area or acute process, nor has it been validated for women or ethnic groups other than and . Glucose mass conc 95 mg/dL Normal 70-100 [facility] Comment on above: Result Comment: NORMAL <100 mg/dL PREDIABETES 101-126 mg/dL DIABETES 126 mg/dL or higher Potassium molar conc 4.2 mmol/L Normal 3.5-5.1 [facility] Sodium molar conc 140 mmol/L Normal 137-145 [facility] Urea nitrogen mass conc 10 mg/dL Normal 7-20 [facility] CBCon 10-31-2018 ABSOLUTE BAS 0.0 X10 Normal [facility] ABSOLUTE EOS 0.10 X10 Normal [facility] ABSOLUTE NEUTROPHIL COUNT 4.1 x10 Normal 1.0-7.0 [facility] Basophils/100 WBC (Bld) 0.5 % Normal 0.0-2.0 [facility] DTYPE AUTO DIFF Normal [facility] Eosinophils/100 WBC (Bld) 1.1 % Normal 0.0-11.0 [facility] Lymphocytes #/vol (Bld) 1.10 X10 Normal [facility] Lymphocytes/100 WBC (Bld) 18.3 % Low 20.0-55.0 [facility] Monocytes #/vol (Bld) 0.5 X10 Normal [facility] Monocytes/100 WBC (Bld) 9.2 % Normal 0.0-10.0 [facility] Neutrophils/100 WBC (Bld) 70.9 % Normal 37.0-75.0 [facility] Erythrocyte distribution width Ratio (RBC) 16.0 % High 11.5-14.5 [facility] Hematocrit Volume Fraction (Bld) 33.3 % Low 42.0-52.0 [facility] Hemoglobin mass conc (Bld) 11.4 g/dL Low 14.0-18.0 [facility] MCH Entitic mass (RBC) 30.8 pg Normal 26.0-35.0 [facility] MCHC mass conc (RBC) 34.2 g/dL Normal 27.0-37.0 [facility] MCV Entitic volume (RBC) 90.0 fL Normal 80.0-100.0 [facility] Platelet mean volume Entitic volume (Bld) 7.6 fL Normal 7.4-11.0 [facility] Platelets #/vol (Bld) 271 /cmm Normal 130.0-400.0 [facility] RBC #/vol (Bld) 3.69 /cmm Low 4.0-6.1 [facility] WBC #/vol (Bld) 5.8 /cmm Normal 3.6-11.0 [facility] ISTAT TROPONIN Ion 9 Troponin I.cardiac mass conc 0.02 ng/mL Normal 0-0.08 [facility] Troponin I.cardiac mass conc 0.03 ng/mL Normal 0-0.08 [facility] US Doppler ankle/brachial in dexon 10-31-2018 Amended Report Non-Invasive Vascular ____ Patient: SHERRY Bazan [facility] Rec#: [id number] (Age): 1940(78y) Study Date: 10/31/2018 Room#: Type: Outpatient Sex: M ____ Reading: Ben Hahn MD, LUIZA Reading: Campos Guerra M.D. Referring: Mohsen Sarabia MD, NATANAEL Slinger Sequins: Sussy Hardin RVT Procedure Info: [id number]... Study Quality: Lower Arterial Doppler: limited Study Limitations: Lower Arterial Doppler: The study was limited due to poor access because of contractures. ____ Diagnosis: I73.9 Peripheral vascular disease, unspecified Lower Arterial Doppler ____ Conclusions Right ankle brachial index indicates mild peripheral artery disease. Toe pressure is 100 mmHg. Left ankle brachial index is normal. 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 Mild small vessel disease noted at the transmetatarsal level in the right foot. Toe brachial index is abnormal. Unable to evaluate small vessels in the 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 ____ Finding Grids Lower PVR Waveforms Right Left Ankle B N Transmet N _ Harper --------- B = Abnormal N = Normal Toe PPG Waveforms Right Left 1st Digit B _ Harper --------- B = Abnormal Measurements Right Pressures/Ratios Name Value Units Brachial 174 mmHg Ankle (Posterior Tibial) 125 mmHg Ankle (Dorsalis Pedis) 119 mmHg Toe 100 mmHg YAMILE 0.71 ratio TBI 0.57 ratio Left Pressures/Ratios Name Value Units Brachial 176 mmHg Ankle (Posterior Tibial) 165 mmHg Ankle (Dorsalis Pedis) 175 mmHg YAMILE 0.99 ratio Electronically signed at 10/31/2018 12:01:15 by: Ben Hahn MD, NATANAEL [facility] Interface, Rad In Heartlab Xper [facility] - 10/31/2018 12:05 PM EST Amended Report Non-Invasive Vascular ____ Patient: SHERRY Bazan [facility] Rec#: [id number] (Age): 1940(78y) Study Date: 10/31/2018 Room#: Type: Outpatient Sex: M ____ Reading: Ben Hahn MD, NATANAEL Reading: Campos Guerra M.D. Referring: Mohsen Sarabia MD, NATANAEL Slinger Sequins: Sussy Hardin RVT Procedure Info: [id number]... Study Quality: Lower Arterial Doppler: limited Study Limitations: Lower Arterial Doppler: The study was limited due to poor access because of contractures. ____ Diagnosis: I73.9 Peripheral vascular disease, unspecified Lower Arterial Doppler ____ Conclusions Right ankle brachial index indicates mild peripheral artery disease. Toe pressure is 100 mmHg. Left ankle brachial index is normal. 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 Mild small vessel disease noted at the transmetatarsal level in the right foot. Toe brachial index is abnormal. Unable to evaluate small vessels in the 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 ____ Finding Grids Lower PVR Waveforms Right Left Ankle B N Transmet N _ Harper --------- B = Abnormal N = Normal Toe PPG Waveforms Right Left 1st Digit B _ Harper --------- B = Abnormal Measurements Right Pressures/Ratios Name Value Units Brachial 174 mmHg Ankle (Posterior Tibial) 125 mmHg Ankle (Dorsalis Pedis) 119 mmHg Toe 100 mmHg YAMILE 0.71 ratio TBI 0.57 ratio Left Pressures/Ratios Name Value Units Brachial 176 mmHg Ankle (Posterior Tibial) 165 mmHg Ankle (Dorsalis Pedis) 175 mmHg YAMILE 0.99 ratio Electronically signed at 10/31/2018 12:01:15 by: Ben Hahn MD, RPVI [facility] Ultrasound duplex arterial l eg lefton 10-31-2018 Non-Invasive Vascula r ____ Patient: SHERRY Bazan [facility] Rec#: [id number] (Age): 1940(78y) Study Date: 10/31/2018 Room#: Type: Outpatient Sex: M ____ Reading: Campos Guerra M.D. Referring: ALENA Slinger Sequins: Lashawn PAINTER Sussy Procedure Info: [id number] Study Quality: Graft Duplex: adequate ____ Diagnosis: I73.9 Peripheral vascular disease, unspecified Lower Arterial Duplex Graft Duplex ____ Conclusions Patent left femoral-peroneal bypass graft. Focal elevation of flow velocity at distal graft ( doubling ) which could be due to retained autologous vein graft valve. Outflow artery (peroneal a) is patent with less than 50% stenosis. External iliac and common femoral arteries are patent with less than 50% stenosis. 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 ____ Findings Left Graft #1 was an autologous vein graft, with proximal anastomosis at the COMMERCIAL LOAN REVIEWER and distal anastomosis at the peroneal artery. Measurements Left PSV Name Value Units EIA 128 cm/sec COMMERCIAL LOAN REVIEWER 111 cm/sec LAUREL - prox 0 cm/sec LAUREL - mid 0 cm/sec LAUREL - dist 0 cm/sec CMO & PRESIDENT - mid 0 cm/sec CMO & PRESIDENT - dist 0 cm/sec Peroneal - mid 113 cm/sec Peroneal - dist 141 cm/sec Left Graft #1 PSV Name Value Units Inflow Artery 103 cm/sec Prox Anastomosis 182 cm/sec Prox Graft 150 cm/sec Prox-Mid Graft 113 cm/sec Mid Graft 107 cm/sec Mid-Distal Graft 71 cm/sec Dist Graft 118 cm/sec Dist Anastomosis 81 cm/sec Outflow Artery 98 cm/sec Graft #1 Stenosis 54 cm/sec Graft #1 Prestenosis 118 cm/sec Graft #1 Stenosis Ratio 2.2 ratio History History Comments:Left femoral-peroneal bypass graft Electronically signed at 10/31/2018 12:07:19 by: Campos Guerra M.D. [facility] Interface, Rad In Heartlab Xper [facility] - 10/31/2018 12:09 PM EST Non-Invasive Vascular ____ Patient: SHERRY Bazan [facility] Rec#: [id number] (Age): 1940(78y) Study Date: 10/31/2018 Room#: Type: Outpatient Sex: M ____ Reading: Campos Guerra M.D. Referring: ALENA Slinger Sequins: Sussy Hardin RVT Procedure Info: [id number] Study Quality: Graft Duplex: adequate ____ Diagnosis: I73.9 Peripheral vascular disease, unspecified Lower Arterial Duplex Graft Duplex ____ Conclusions Patent left femoral-peroneal bypass graft. Focal elevation of flow velocity at distal graft ( doubling ) which could be due to retained autologous vein graft valve. Outflow artery (peroneal a) is patent with less than 50% stenosis. External iliac and common femoral arteries are patent with less than 50% stenosis. 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 ____ Findings Left Graft #1 was an autologous vein graft, with proximal anastomosis at the COMMERCIAL LOAN REVIEWER and distal anastomosis at the peroneal artery. Measurements Left PSV Name Value Units EIA 128 cm/sec [employer]VIEW[employer] 111 cm/sec LAUREL - prox 0 cm/sec LAUREL - mid 0 cm/sec LAUREL - dist 0 cm/sec CMO & PRESIDENT - mid 0 cm/sec CMO & PRESIDENT - dist 0 cm/sec Peroneal - mid 113 cm/sec Peroneal - dist 141 cm/sec Left Graft #1 PSV Name Value Units Inflow Artery 103 cm/sec Prox Anastomosis 182 cm/sec Prox Graft 150 cm/sec Prox-Mid Graft 113 cm/sec Mid Graft 107 cm/sec Mid-Distal Graft 71 cm/sec Dist Graft 118 cm/sec Dist Anastomosis 81 cm/sec Outflow Artery 98 cm/sec Graft #1 Stenosis 54 cm/sec Graft #1 Prestenosis 118 cm/sec Graft #1 Stenosis Ratio 2.2 ratio History History Comments:Left femoral-peroneal bypass graft Electronically signed at 10/31/2018 12:07:19 by: Campos Guerra M.D. [facility] XR CHEST PA 1 VIEWon 019 XR CHEST PA 1 VIEW XR CHEST PA 1 VIEW: HISTORY: Chest pain. COMPARISON: Chest 10/09/2018. FINDINGS: The cardiomediastinal silhouette appears normal. There are mid sternotomy wires consistent with CABG. There are a few scattered calcified granulomas in the lungs. There is mild bibasilar atelectasis and/or scarring. There is no focal consolidation, pleural effusion, or pneumothorax. The bones and soft tissues appear unremarkable. IMPRESSION: 1. No acute cardiopulmonary process. 2. Remote granulomatous disease. 3. Bibasilar atelectasis and/or scarring. Normal [facility] Creatinine, Serumon 10-12-19 19 Creatinine mass conc 0.79 mg/dL Low 0.8 - 1 .3 mg/dL [facility] GFR/1.73 sq M predicted among non-blacks MDRD vol rate/area (S/P/Bld) The eGFR should be used for monitoring renal function only and not for medication dosing. [facility] GFR/1.73 sq M.predicted CKD-EPI vol rate/area (S/P/Bld) 85 >=60 mL/min/1.73 m2 [facility] Interpretation and review of laboratory results Abnormal [facility] TISSUE EXAMon 10-12-2018 Case Report Surgical Pathology Report Case: [id number] Authorizing Provider: Ben Jensen, Collected: 10/10/2018 01:05 PM Ordering Location: [facility] Received: 10/11/2018 08:07 AM Endoscopy Pathologist: Carson Carroll MD Specimens: A) - Duodenum, Second Portion B) - Gastroesophageal Junction [facility] Clinical information o5qhrETzJEHhuTTbFwL yMD OlEDJhl3lbVJOqbZDcCcJr MzNcZnRuYmpcdWMxXGRlZm Rvh8fqx794nOAhs8pmVVEh ZdF2kIFmUZDicDRvH792z9 ccc7ctbwKxfZC3DRFyFNK4 KYultoKesiI0TWaicQYpYf B9DMlclrEnLHkclfNpagYm Fak9FUBpF692WLH0sNgei4 swMFH1ZOAbLUWzZeXaVr5e bGSaA228ZSZfXAJZOYQkkG t3JNRkuwQdafRupSQPx474 D833c1kmYVVzivMmkNkVxx plb1miT314TGErnEQwxtQh DhKpXAInuBWefCY0IJWqAY 3ymktfNhGtEL9lokajNtLd QF4tzsr0BXF4RAuuTHHaMw Z2VQMsrAWdZDHpeAqcRYut j681GCQ4MMots5ajo8iiuI WoAgz9RUMxNkXjXyuqQGhs p7Nme3vdOOBwmo4mFJK2tT EygAloh3T0dDXeFFWluTBw sePnLVAbBnO3FEnpFV6atm 32UPJxFJW2ft7fnFEkwBml moZzlDCmYOeyG8SjUCKtc7 80MPYgH8XuDGKie5Q1rwWu EbPoUXUaxHN4dcF7VLAdSN x8xVFtulM5azLlpTJdL2ln sW17ZeCgaDRpB0QebK49Yp JyqYLsN5JiyH9fYXXaIH2q hhlez5giKSJ4DKtvGKDoAF K9GnUpYRXho8AsyfzvXCZg q9GpE5GxuPhmR34ovKspM6 6fHGPjeOospI8ibPusyL3q ZjBcZnMyNFxxbFxwbGFpbl xmMFxmczIwXGxhbmcxMDMz MHpnA7faAvWtUOLfsRqmHA dgw3XrOOUcQWHfJiTnI7xl YmxlZWQuIFxwYXJccGFyIE NeNS3cQ63keBOxPdrtFBqb HgogTPdgEHHpDpywmUE9Hg ILVLWwx2XgiQ6vESCmul1= [facility] Pathology report final diagnosis Narrative z7qywYOqDALstXCgWjVuIW QkGYVqm5apVMGpiBYiVvIu MzNcZnRuYmpcdWMxXGRlZm Yak5yrf027tQJoa0jtGPBy EbT2bOEcNYVveHSeE894SC LgAQdyt8kwf2CnZJHtpLTs s2W4UAAEqhgvvDh3hDznZ0 5ri6S2NrcvH2fsTGWbQEVg N3FmVH6wZAYdPrp3BLN2RM V4XJNuPBOjP6VuYW9xYQKy zSWiINo2j0hsnRokHUVgAD K0b0etVOqryiPjTB0tfa5x uCp6c5kpdbBwUQUbFYPmdN DELMLyB5MikZvtUg2juIz7 pPifUkkbFYE3Grs3AM8dfi 32ywo0bFeoIJFozerzEdI0 PItaNSShctotQFf3DJkqQX JnbDcyMFxtYXJncjcyMFxt OBQynYD9QUIfrRYoM6OnDH BmOGzaAESwsfa7ViIlKy5t tDPpsJGpxe7nzn48ADC7z3 YccZiyBQD5HVW5YgGcFb2v qASdDXKqRK0sVvKpqSThKQ Jfmd88oPpiMZczegZcpV4u YmRiXGZldDRcYWVuZGRvY1 lmBiRdogEqT1acV8FgMWVt CIAqCMJkQpJxluNzy5Vso4 NbxMEegPp9c3dvMFGjLYZg yXuiw2koAAX6KABaE0P7dJ Uai5liEEadQJWqsKF9oitn USsjQVZytkL1qdyfNKvpRU JdaWX2tyU7NMRueKMgS5Pr kX5cDUWzYMnlQNDlchk0Dp JqBc9pkOFigZYph9LfcXPu QMohG59ut234LVNsovLpE7 xwbGFpblxwbGFpblxmMFxm brX7VBUjzoVmy6GxJWXxAA T4OIwcUGtewAQuOUEhdOaf m7ntR5JfhLVxAJEvSHzaBZ YxXGZzMjJcbGFuZzEwMzNc aGljaFxmMVxkYmNoXGYxXG jiJ2coGbDlH0NuRHVbIoSp uLVkY4ayZzYHHpSdnPvbjR 3bLvOgMiHiGlmdSB5jOQGy K7gabOJrCJTrACOaC9qaHq BrlE4etAeqYGiwUbCeUnWw QsyxIWZ2y7EsroWzJWOqQI KpcyNksE3luVvrnxpsfCIa j4UagAWibK5kf0ggdOcupF 4jLaUuCnGxXzvyEY0oFRMb H1vlnBZqTEHpZWSjI8luQa OpeD7xfYslNCokRnHzDfQt MlxsdHJjaFxiIDpccGFyXH BhciAgICAgIFxwbGFpblxm MVxmczIyXGxhbmcxMDMzXG kkH4soGiJmYCFdaVvpQRpr k8EoWTIqRILoHuwiusDzUH QdEN5onx9wcDGwfNWyZmMy pDzoHSAjye1yoHJjGQWbNK IrfAOkr2vazAYdsfyyWExq czIyXGxhbmcxMDMzXGhpY2 arPrIdUKGymVafBGsok1Kt DIPjDLOnDmdyzgFsEIx0ys NoXGJccGFyXHBsYWluXGYx XGZzMjJcbGFuZzEwMzNcaG ljaFxmMVxkYmNoXGYxXGxv Z5fnJiFvX3JrFQSiDiFoGi zgVYBwuUeycM0oAaNxDqMp RyfiDF2iXCPoX9oehURnGF XqIWEfN7pqGnYbmM6mzDmx MVxjZjJcZnMyMlxsdHJjaF meZSCncaCMIjIaaQvngJ3t PjEsRwHjZqkhVT5vBWXrU3 oksLClCWPqIYRvY1mzHgEf pB5cgIldEXbiUeDtTePcWv jbLDJln0LcHXz9tadyV9Qr fIDaOPWkoJygB2ZdkQAybB 7sqEnezjoyzGPii6YzrMGy kP8ed6zogOptvD3qYpKuRd QaDeeqOG3dOVWeZ8vbcYZr ERSdTAQdO6hmQnZcsO2rdC xmMVxjZjJcZnMyMlxsdHJj vRczYEsjmPsjnR5iQdUaDq AoOhhwUK0lGMCbK7wmeBZf VWXiHWPdD0tzFqMncR7ueV xmMVxjZjJcZnMyMlxiXHBh szpbWGZnNHDsSCIdL9R8KD 8uG92foX0yRAFowVOjc9Mc KMmswJjjhXScbU9qdZSwyJ Syy4KkcQPwnVRoNLcpSUVn ICAgICAgTmVnYXRpdmUgZm 8uPVdkhPKluGreHHzpjWF9 YXBsYXNpYVxwYXJ9 [facility] Pathology report gross observation Narrative m4zmhGMpFCOzsUXkVyWlQB CbNHOml5veELRfuGZbSmHn MzNcZnRuYmpcdWMxXGRlZm Ruw0vzs155rCDuh7mpWOSx IkO7jFXyFGXmdXTjT713AD CzDNqdgj0qRT5aBKXoyZIy v8G9YXEGtiriaOg0o2ltJl GhYbM4pIFxYPkkO2ybwvHv wVOwADQqINk1jRstWmKeDC Ehn5Uzts5nXEKeyNErs1B8 HDNDdgpsaUe4yDqtS74ag8 H9TqubJ7zcALYcXPubOOCy AJlqgIQbRWS4ANKeNAB5MQ ozelKvjdS8YDkwhIXhDeF1 IDtccmVkMjIxXGdyZWVuMj C2XXAtbLZrSEZdR470KKL3 xDpzv5yzKCA0JVCrZQEgHt FnIh4fnRLdI715TPMkYACL OUQbdRa6IVSnupSgofPjjZ QNv935H476x3nvILJqysEs eGcHumfbt1qkF822FDLgbC VydzEyMjQwXHBhcGVyaDE1 AAZmDE2iaaruWaWkTS2pke lyHdMdOC7wams2IHX5IJzl OGIvQnB4YSIfzQIeMHMueT kdTMmuy498MLW7BQhmv5vq i2tmpDCqQzf7NSDzVuEwRa qvYRxsh7Hxh0wzQUIzvr2s LHQ5xQJjwCltl5O8iNCzEK NwsNEfviQlIICsRqC5UZym JW5xIK2lCGLzhK4lwkbvPX BnYnJkcmhlYWRccGdicmRy Fk9kjPizEEQ2WOreW8gdwD 5iOvV6VJkiQ7kwcQ4fZVp1 OCuzjMH7LAUpmC5pLA7tsy jrt2qaWrXoHR3zzyezf7xf HcWeQS5figw7a7yiUYN8SV qoFACvXvX9skM4EDUumQPi ZPUxbYlyITvsb047IVO7FF xzYmtwYWdlXHBnbmNvbnRc cGduZGVjXHBsYWluXHBsYW luXGYwXGZzMjBccGFyZFxz d1OheaJodCgbXFMyQQl1zi WmwbhntIt9gLJeiKxiRIOj hLdlzR8nFrDaRqLbKWfvrB FpblxmMVxmczIwXGxhbmcx VIJoNOpoE9zrHjKgBDUbrV wcSWlau1MfUSOuYIAeZNvw mqLbOMk6smIeWLHgIWFrqU VuIEEuICBSZWNlaXZlZCBp xcClv6FiNHrjkvZxFJMlfO KkJFOlbItufX9fVrDrKcJd IHglOJ0yXOOgG0uvyMXeGV PrSXOaZ7shVgWnjR0cgGvf DdvsQtRaDxSpAJoyxm96DA N7b8bavNTuYFboHluptPCz fwR0EZzOYLZVDEoRGjBeVB 1lPUxJTktCRUdJTnwzODAw UVxtuFPRSDcKY9t1FNRTZO 4mWEmeZdk5XF69KGSjJPHt wBObDIdqE542VZVdSWksZU YyXGZzMjBcbGFuZzEwMzNc aGljaFxmMlxkYmNoXGYyXG xeW0upNaVkA2UtLUEcCsSu eIPjsMPzeXVQy0sgSTIWuN 1lciBFXHBsYWluXGYyXGZz MjBcbGFuZzEwMzNcaGljaF fnFkufSbCoBQZoLAxcH7mh JmOrO7GpADZuIrSiwRGmjI HghFuvQdqitSU6KRgdBcwo nT0luLADMMMULuuEOfqtjz VaYD7AUZ2DWQ0CqNW8DCLx rPX7IPWFJL9UuBnLQVSdYz IsLCwyfHwwfXtcZmxkcnNs uQZbQnSrfZ0gqKhllD1qEj UwOeNeIHvlSI2lXEYoH4eu oRWfNHAePLRlW7tfKzAicV 9jaFxmMVxjZjFcZnMyMFxs dHJjaCAiIGFuZCBkZXNpZ2 3wlRUcNUKbvQcrjW0bTuHh XkIhKGBFFxXQuC4qQZ43kD ErWMDwfqRonP8fcDawqonu bGFpblxmMVxmczIwXGxhbm ckNPRzDAldS2zkNoSlHCRl iLrgGNnvp0GjTLUsLKMeWO hyvvIhYXn1gcIpQFYiUJJb YWluXGYyXGZzMjAgYXJlIH S6eiM6NF7phA2gsBodoczc k31mo9MrIALtxRA7ABRiHK luXGYxXGZzMjBcbGFuZzEw MzNcaGljaFxmMVxkYmNoXG VdKVibX0saGoVhQ4UrKAXt CiGvlNDjD5ppCMMnLCJiVJ TcRPPtkGmywR9cXlYkKwLk MCAwLjQgeCAwLjMgeCAwLj SfnSgduH5tIoUjQeJlQPxn VV1nQNTrR4rzdHYxJPHsHV YsQ8bnRkGyvA6jdOmaDRkz ZjFcZnMyMFxsdHJjaCAgY2 6aoMswtC6xLfNsPhPjXZNa ZWFjaFxwbGFpblxmMVxmcz VhNMuiitacXBYvHOdvH6dh TpIoDQLcjOlvDBtyg7LoMY DtAGBuVAkgshJcLGo3isOp AK4yDAYyyKXuxWxfyN9rRd JcZnMyMCAyXHBsYWluXGYx XGZzMjBcbGFuZzEwMzNcaG ljaFxmMVxkYmNoXGYxXGxv J1tiElQfO8QaTGSlNbWlaY DbN8wyMcNyICWcVVzdHNPs XGZzMjBcbGFuZzEwMzNcaG hobYesM8otViAgLQGyFLgn I5zdYwDlD3TsUZJaNaPtp9 FywGZlREC1PtXgTBJcJDoz bGFpblxmMVxmczIwXGxhbm gxSTXjTHmgI8hhZlMkFABw wFiuJTlql3LtUKWqYXPkIZ bxvmWaPTq3jmLnLMVndcga bGFpblxmMlxmczIwXHBhcl xwbGFpblxmMVxmczIwXGxh tydaCHNjQKgxS6vpPrSgOK QqzMucXNiqq4OeHQUfBJGt YAenowUsNFu8qlXtVSDnFL NpbWVuIEIuICBSZWNlaXZl IZPpwjLsn0ImXOvnqqIbYQ PsvIRfIHGifEermW1cIuXp OoDoONfjKZ8zNYBoP7yhnF ZhMYKbUVRpO4hyTyOyiV7t aFxmMlxjZjFcZnMyMFxwcm 68MLI8r8ungMVgSCdoSkas lKAhxbR2SVhINUBNLWxFMw YaKR1xTCdMDlgKQQyQIovp OPZaGDlelZWZUHaRM6y7DI NURE4zBKcmFmh3XP74DTGb AOAfpQNzLVyzY418HKVrFP luXGYyXGZzMjBcbGFuZzEw MzNcaGljaFxmMlxkYmNoXG OrLWtlZ0zfLeEoK1ErQVVd QcSaaEOxxPJimGIDd7jzJW QNmX6bqjLRTIKzUZxqFWTb XGZzMjBcbGFuZzEwMzNcaG ljaFxmMlxkYmNoXGYyXGxv R3lsYgByD7ChIUGaHyVvjO EcdTJhwAyvXrjszEZ3LIqt SoorbH0elDTLDFAWMpjQUg gdiwZqPR0ARP6BIT7DqZQ5 JPBzsDK0UKZJQA4SfLyKIS QsLjIsLCwyfHwwfXtcZmxk dgFuwHLfZhVnhM8wjCnlzD 3yZdHpXbGiUYguPO8qFMTu I7kgySPnBPGlWNRyW5pfHy RucQ7vtTyqSPgqDcMrHlEs MFxsdHJjaCAiIGFuZCBkZX CcJ40byMXdLFNyaLqzrP0o AnZvPaPjNLYOIbOCMWU2jv 6lj75dhXEkAOBuKBx4nbL2 yO3pIESbRAbjWGYrTTQyIk BcbGFuZzEwMzNcaGljaFxm CDqjGeCnHSUbPOxxJ8ozLg AgD7TmFUUtIcChfSOqN0sn FtUewFkevE9oJdBoIbZyIK BpcyBvbmUgdGhpbiwgdGFu ZQUqdX6mkCkzHAHuZUYjhV ilhJ9bXwAnKwRsVGzuOH2v PBIrT0rgfJYhANCjHFHbV3 ehRcHugL6uhTmsDExhBmUf ZnMyMFxsdHJjaCAgcGllY2 UocyksIFxwbGFpblxmMlxm nwZdFOYeTGR5MOEdAdL5IL AuMVxwbGFpblxmMVxmczIw RExgandtVMBvUIunQ4hqWn XkVBNljDxuRKmmr3IkMGLl NKWrLVltoqUdMYb3lnJeUL AljU1iNLMepUOprSbkzL3p ZjJcZnMyMCAxXHBsYWluXG YxXGZzMjBcbGFuZzEwMzNc aGljaFxmMVxkYmNoXGYxXG nzS8hdQiHeG2MvBRYyCiQp wLEeL0euZpVjZMMrTYgiTF YzXGZzMjBcbGFuZzEwMzNc zVfdfStjM4fyMkUeIXEiCN uzX2ueYdOeO2ZdZJCiSsXg e4YsxAJeMPE3ReWqNPHgKZ fcHYYdnCKxDIQhuaXvo9Jw BOPuXEP0SWwoSHuhnFtcvF FpblxmMFxmczIwXHBsYWlu XGYzXGZzMjBcbGFuZzEwMz AdrUejtDocW2czTvRqBPHo JEqpL6dlGaZmD5TdFDDoLj Fzt7TvyIOeXFL7TkUaGJJs MlKQL2AHG3ukHGAinYNhAW BsYWluXGYyXGZzMjBccGFy HAeef9ArZXQ4OX3yfnU3wM 3bFFFcslHfaj8xHMIinQfo Rwt0SZZepNRaMU6fuUrwFA afyFRBm1DzrTSniWPvYQD9 FaTlC0tetrVmwhm1TSCqvc OzNUBuPDYcG73jgX4brAYl RL9IKHWsVhL5WCNqlt9= [facility] Pathology report microscopic observation Narrative Other stain l6uchARsRKXfjFKuXyEuDX EeBSEnh4xqMXQvmADgTrOs MzNcZnRuYmpcdWMxXGRlZm Tsr7qux766sJHtm7iyELBh ZxN3lASdTQKxfHJlZ829LT KxUKvhz0efj7MuGFWaxAZi w6L9NNGAeqjcrZv3gIskK2 2kp8J5MjxgO7urDHZkKULd O4RwUY0tNYEsXho2MIZ5KJ U7SDNePNDsQ6AhCP1jOVTz wMIlGTi1j9vtbSnyBJFfEC B1r0uqTQeqcyIbNN5qwr7e sMg9x1shecBkVHSwIADjnY KCLEXlA0DzgPbkSu0nxKm0 gJhiJqlxVUH7Cmk2LB0pko 38qag6lLgqQVGslhhvRfO0 CYznGNGoqnywMLu2KNqhMU TcdKE4ASQqhRHaH5GcUOJf BF0tklc9YXI0VOxuOZTrMz D0TKSqqRTkEMZpuDibRNgj c711ICH9DvBbMR1wT6Cyf5 P6pW6vvCAfFUUbpYDpZeVs EBEdra3reOBlJDzmd1OvEJ C9qcP4vVXcqJZqZHWcII07 Qfvlw4WfKnyiXMG7HWZfdy Irp6Gbn8mtFnBhtqNnN4tk A0PhDMIzHIRuABKsItDroy Ray9Vvv9XwxIEkgJi0c0jn HCMfKGDwfKldk1lyPNR9DR MpT5G2tWDwd7yvEZrgAPSr lKL2dhJ8KTTwrSBbM7DkrQ 6kNJDoHD6uxaw9x6ocTUL6 QKfeINVeOcM0gsM5ZKOvtM GcYGCaaAoeUOknh265YIL9 XbWbDSBsj4TrD1AjyQstZ2 9wdFhdD08vRWWusDdgqH4h tVlixZ1jDpIkQzTlMVrlvY xwbGFpblxmMVxmczIwXGxh ncijNIMjFLyyQ6ykRbMdOD YcaGqwGUdxg1JnBUDlJGQk IpGqOArecu5cI37efCVvQA iigRdyIRLly33uxCDkvUMa Pz4pnYYnWplvNSX5 [facility] Vancomycin Level, Randomon 0 10-12-2018 Vancomycin mass conc 18.4 mcg/mL [facility] No established reference range. [facility] CBCon 10-11-2018 Erythrocyte distribution width Entitic volume (RBC) 14.6 % 11.6 - 14.8 % [facility] Hematocrit Volume Fraction (Bld) 26.6 % Low 41 - 53 % [facility] Hemoglobin mass conc (Bld) 8.7 g/dL Low 13.5 - 17.5 g/dL [facility] Interpretation and review of laboratory results Abnormal [facility] MCH Entitic mass (RBC) 31.2 pg 26 - 34 pg [facility] MCHC mass conc (RBC) 32.7 g/dL 31 - 37 g/dL [facility] Comment on above: Cold Agglutinin pres ent MCV Entitic volume (RBC) 95.3 fL 80 - 100 fL [facility] Nucleated RBC #/vol (Bld) 0.00 10*3/uL [facility] Nucleated RBC/100 WBC Ratio (Bld) 0.0 % [facility] Platelet mean volume Entitic volume (Bld) 9.9 fL 9 - 15.5 fL [facility] Platelets #/vol (Bld) 160 10*3/uL [facility] RBC #/vol (Bld) 2.79 10*6/uL Low [facility] WBC #/vol (Bld) 4.58 10*3/uL [facility] Creatinine, Serumon 10-11-19 19 Creatinine mass conc 0.95 mg/dL 0.8 - 1 .3 mg/dL [facility] GFR/1.73 sq M predicted among non-blacks MDRD vol rate/area (S/P/Bld) The eGFR should be used for monitoring renal function only and not for medication dosing. [facility] GFR/1.73 sq M.predicted CKD-EPI vol rate/area (S/P/Bld) 76 >=60 mL/min/1.73 m2 [facility] Interpretation and review of laboratory results Normal [facility] TISSUE EXAMon 10-11-2018 Case Report Surgical Pathology Report Case: [id number] Authorizing Provider: Flynn Mann DPM Collected: 10/08/2018 07:43 AM Ordering Location: [facility] Received: 10/08/2018 01:42 PM Center Periop Pathologist: Shyanne Yoder MD Specimen: Amputation, Foot, Left, Left foot to pathology [facility] Clinical information s0audWGcCJNqqAGzGjD yMD WhNSFez1juTTNypBNpBfJp MzNcZnRuYmpcdWMxXGRlZm Ldu7wei306dLMie5tlEHHg HvW4mKFmHRCuaCAvY509q9 kbv9zjnpFadEA9UMKtJKK5 VOzhwsQugmM8YAleyRFjSk X9FBggvyTdCXthqoZmdoWn Got3DLZhD681AHS5eXynv8 iaURR9PGCcCZQgHrHqJl2k mWMvK874YHDbSOCICUTmuY x7VDVptpOtnzXwlKGVz200 P257i1myFQSpouCgySuXqr yov9mjX476GYJpfMDdpiXn GzIuMPScaEPbsZZ2EPZzRQ 1fbzqzSpBfTX2tfhsnZpDu HW6qgak1GAC7VUffNPKnYi S9GTKboDAlZPGdrFnuJMmd j865RRV3PRmdo3tdb1vbqQ LtGyy5BHFiLkQgLvdrHTra q1Dem8zjFNWxdj5cKAN1cA BzfYjua9O9tMLgKNKerZRy ckZwDZVmQfF5SDqnVP0gag 05MPIdXRW8xv1kvJZnwNjl awVjyLIeGQpgT4PvEPQcb7 14CQMgL5WqNQHbk7S3bkUj TyPwKPXrnJW7nlA8WRRyAI r8kGWjdyE8xeVplEQqP5lp bQ22JpMnaSLkY7VugX91Wo ZwvMBjD4KlwD6xQEVaHH1h hczzt2kfLVJ8JWuyTUJwLS N8IgOeVMWns2XheavjATQr u0WtJ5TvvJcjK26cyAsmQ2 4yGECafZrnwX2waGywcU3j ZjBcZnMyNFxxbFxwbGFpbl xmMFxmczIwXGxhbmcxMDMz GLjyW1dcOePrIPMrmCzfZZ vmt4CoYEMwPEXfUiWeKJLu wHWas600ZLxjoyrkSG0fDi xwYXJ9 [facility] Pathology report final diagnosis Narrative t3bvmQMuZMCwkFAgHrOpEK VyDWPqe1rjRVDhhRFfCdUb MzNcZnRuYmpcdWMxXGRlZm Bsi7dpq056mJQyf5paYUWw DqM0hKQvADPrnSQoE915AD IbMTyoz5khb4AuOLTnuTWg z7E7ZCGCglnclOw4zOgqO9 1ri3E9GtemD7vzQXNkSRze AMDcDOmwoKJlRQX9JDDeNV B0HKxmbhZzhiA9OAdwcGUk YuR3WZs1u2gupVfaAICuKP B0u1bmBMrpbcTfHS7eli2e mCf6d3rotwDtJEUrKWEvlT LMKVNrP4AzrYxsOz8cvNl5 mEdhDyroRDI5Lwv7AP3bkt 08ewz4aCieMYMtbogsViN5 ZLtnOVJfkqjaVOy3GQhhDD JnbDcyMFxtYXJncjcyMFxt ASMiuRU9TUNukUKmB1LvDP SeEEhqHRFwjbe0AiPnFe8h xAGybTFkqg7qwq01IUT8b4 AgrUggFBH7NPP8IzPhZm9j zKItXLRuMT2zUoEvfJIxPC Xeih33qOqyLYvqmiJdrC8u YmRiXGZldDRcYWVuZGRvY1 alPfYsjnZkF9exA3JyNRGb YOVhFWBhYjBgzvPrr4Vbu0 NqkBOtdGw1e4lyQQRqCFVg cPgri1meLCG9HJSmP9Q1aJ Wmj5fuFMgpNLWihYT4pvgj BXnfHZRqwvB2iykcRXevXK UrrXD3axA2OGHuvDNeY1Ym xL9hOVWbMKocLZZfevn9Dq FnUi1dgIHqoLDsy7OuhZDi XCvaI53ss975VSBzwrEpX0 xwbGFpblxwbGFpblxmMFxm ggZyQIPrnjScf9IwMJAxGT G3ZWocQKyznQFnERFerVtt g1yrH7LcvNWtHOCaIXtoHU LeTHDuFiJckBjrjU8pSnNs GnIxEYlkQE3oBMJaV8wsvI WuLHIhYHCuC2kbEjSjyS4y aFxmMVxjZjFcZnMyMFxiXH BhclxwbGFpblxmMVxmczIy ZTukmcigMTSqUHpbY0xhHk IuUKBcnFwkILzmk8LhESGw XGNmMVxmczIyXGIgTGVmdC Hml622ZYSbeIY4jIF2mL9g XHBsYWluXGYxXGZzMjJcbG FuZzEwMzNcaGljaFxmMVxk ObPwNXJlJFgeQ0psTzRxY2 MaSICdZzYzwDIgF0gpScW9 XHBsYWluXGYxXGZzMjJcbG FuZzEwMzNcaGljaFxmMVxk CqTqBHSiEXrkM1xmVfToM0 YxXGZzMjJcYlxwYXJccGFy HLUuwwRna9JdGHPoOFM9ET xzMFxxbFxwbGFpblxmMFxm czIwXHBsYWluXGYxXGZzMj JcbGFuZzEwMzNcaGljaFxm TNavOxHsQQZsXAboJ3kqZj QuS4SpFJPmJjRuDvNhXAVt EFLLpBFlhzIwieRoi03srK W5xEVpnDAnQU4dWEQtquKy ksOaby4jbMItPSWvcgqckB FpblxmMFxmczIwXHBhclxw YXJ9 [facility] Pathology report gross observation Narrative v2oeuGRvUTLewEDhYjAeTJ LnFYLxx1cfFEVkwHIyDdCb MzNcZnRuYmpcdWMxXGRlZm Rnd4sed445kHCio7apJEZb CgI4tSQjYYEenLYiK659CE AlIOxjvv1dTL1yVXWcmMWp a6B7EAQDqmyimSg0d7shYa RgGgK0lNRlDBusL7tuzsWu fPArVTFsBTd6gO55AWYdnE 9ydGJsIDtccmVkMFxncmVl pfJyTdn5SJKeX2geCQKuNS RwQ2YbTN1sBZEjNcl5JZV0 APG4TXJsVPKzDSezqtWtyx FjLEchzKCxNsJ5JGt7k5yd gKxbXSQaFLP0y0pzXVeabr GxJH7oov1stEw6j9rtzvIn ZYKbVBVktSVTTNLiU3XrpF znPh4buSr2yYizNhyxYEQ1 Emh7DH5oaj34nnp9tPzsEP YqbsbrGqU6KPtjFIKbmbdx VBy8UXdtNCEmqIlpFRdmZO HueowhOLozPJKlyIP7SARx jYKhX4KjRBClQVutAZKpzz b9YqAkCx3bqVTzyUYvdt7d tj13MUJ1a9DiiBavJCU6NA J4EqJuHk2kcAYsIOUmAB8o LkJswCLuFNMfpv80fIbpNH upuqZwuF7zZzNdLYZdkKCt HVUcHVLkN3bcDiIohuOqQ4 ydO9GgKUIcEPJnMOBdNhTw mkHxx7Fdl7FfvPXlqZk6q1 dpUBNzDZQjmCqsp1hxMOL5 EQCtI6J8yDYmm5kjTYzmHL UgvYC7uvzwFCgwUKYalcZ3 okssETofFWDddTT9lbY9CK KvxFUbJ2EocK9kXOKnMLki IDAzcwf1SwHrZf0prYJvhI Vva9RxzZGyRNygY86yn108 LQCubzJwB3vyjIAadpkspK FpblxmMFxmczIwXHFsXHBs YWluXGYwXGZzMjBccGxhaW 5xLqSzPxMiESkvWL3pVUWs O5wgcODoZXQoMCAiS4rkPk RjnG5akLjzFPlwDiHmNzLv MFxsdHJjaCBSZWNlaXZlZC DrknCbx1AdOOvqomPrDSUl gRHuKOPiaHvnsQ3tFyEkGh GnJElvZJ4lJCTmN3tcnDEt WUGrQQIwP0nyMjNngY2jcV vkTGqdWxVuHmLgJOpwcm39 LZM1g3gfaWXkNCegQvnwsW QihmE0KXgPQJJJDMdIMxKs XO5aQIsLFxbMCFjSOylcDO PnZXubkTBSXOoZI6a2CCMA NJ0hXLtpAkq6GP55CMJcLE IzcDFfSCnbH503VVKkZCxu XGYxXGZzMjBcbGFuZzEwMz NcaGljaFxmMVxkYmNoXGYx COykG9drVzNsR0JrIVSgRm KizDJoiHPfrICTo9nrZWWI oK0hetEPNEKmTHutKPZdFD ZzMjBcbGFuZzEwMzNcaGlj aFxmMVxkYmNoXGYxXGxvY2 nsWoHvR9YdISUnJwWkdCOn nOUtyPhuSmhjdBV3ZDraXd zdtK8dwKFJOTAZAvzRLoox yoXwJH4NIP4XPN2QsXJ0HE GmcRF0LIHRJH5LqJyNELTk LjIsLCwyfHwxfXtcZmxkcn RezGQpDiKjnY1kyYtrgU4t AfPxTkAzUSgsED7kUKFbM4 rokRXjRGAgYGIzP5kvEeUf yB1iwIpqYWugJcRlOqEtTY xsdHJjaCAiIGFuZCBkZXNp P15hrJKdLSKuxRdwwP3vMb ZuWuIsJZXfDWY3SZEey6Zo OH4esNBiuOutwwsusFVwcn xmMVxmczIwXGxhbmcxMDMz DDwqZ2nhDkHnZGKwvBqoOY dpq5WhIOOrJZPxCRtnhkQm UGx6mrSlWNHaqRxeqN1aVt JcZnMyMCAgaXMgYSBkaXNh qqXuR2JsYOHlOWCdDLY8MF OqpdRyw330NOZmILS4ZIfu TDY1QGVqQ20kKRGAbBQdh1 czvaCukaK6PK8ft8vqjHQq XBwfhJ4xkLYsSyEdVNchPI GyjK1yu09whFdqDNVhMLEn XN4fLKZjTIKodKT0XVejxD HrMmCiXhO5nGOoPY6ql5Sr ZBT1atWbA0Vhw3UrkKorXN Cyn5ZadAYlU6Hoi9HfbKMm dP2mkTPvLCZjSXTecUDjJM 9lYLFzvxHeCa5kHVahbIEq PQUkg4LcMl5rTEXufmOvYI bikUQdPQYlWMGejxQfOY12 HFUfAFMqITpsiRgjWXH0DE 4unD1ycPLhbB90FZM6uGvo k5AmFXCjqA8uodMkqB7gXI NlcGFyYXRlbHkgcmVjZWl2 ZWQgYXJlIHRoZSBmaXJzdC ikm2Ynz91mOMGgZEK7kSzc EJVihM6erUXtfn5dTc3pBS FyJS9vMEQnvAQvfcVgW2Wc OVWgvTGvhJWxTv1nDN7aCW DkLIQnfnGcW9HpOTBzc3Dj ZmFjZXMgYXJlIGdyYXktd2 nszROeWBRhz813cG8eEYor HPDmtJSjFIOuh9JpsDFtII R4nM8sexa1DAHIOT6nSNBt SGPszeVfjLr9LMVjm0iyIX Dmi4MzqTarylCsCTItsN9r PRJpSMLsXmYIJl2uSAUlFD UqfeJfqBy8NIHyWORkn2Fy OfHcqgXjUarpZ4xrFBSrwN DqXI2cTQOcz0gbZsJHRa7m q73tXWHaZBBikF8uTznuZ4 cauMnzP9hdjeNkOJUfjX4y JZCzA2IjC8tzpUHpGvUUAT 9aAPVeIRNvcaZvyJl3NXAx pDUfmFNrXl3yHRfkRGIaSE vnfGYkEYJ7SMW2HSLgjQPh e3XaxMI0nKFzCDXaeCLpQI D1tzTeAf4mbTDmu42kSYKh GQHawPFcAsgkDD6kDD3vVE 3lFQDgiangGRAhF5YSU2IB Nx7tgMskCRWvmdzwXXBvS9 Wcv2WkMAtgpEjoSNRih85q nIKlFh6gyQAyWUM2WpXAuV ThofWvYAZnKUU6hZ0jhUM0 HQwkh3ApmZScOR9oPmKmQT KAwLFgzMTqQ1kvDct6UMWq Wf2pHMKEv1g2tET5xiycK7 ggNDMyMTQuXHBhcn0= [facility] Pathology report microscopic observation Narrative Other stain p8aqoJUqPCRehMBmZzRdUK FmZIRca5ntDOGeoGBjRgJg MzNcZnRuYmpcdWMxXGRlZm Ntu8dsm967vJApn3cvEXEm GdS0jAXgFPPpxCMqW617XF BwRQore2zxo6OhYWRmzLJc z5L2FXFLxdzwmFu1vRxaG3 5kf6W6GyioI7ifDBSmVKHv R6YuER5mJGAdDfy8NVX0LE R0LYFpXRFrW8NqAB5uYJUd tHMdWRt3j3rbvYhgQIGeGL E3s4xtHOuxohSvHJ9jns4e zNa1d7osqoWvEYQwWXTyyW UDXLUzK1DzpDxsZk4gvJp8 nIjrDgfbISD1Mzj5TV4eqt 39auv6jVcyKOHyenaeRnH0 ZZfpLRUudkuoGEp9KAahLP QygGH1LNSqqJRkB6EzZRRj PI8dbri9VGN0HSrpBUBpWy C8MPHfmQSyCPRznEnfOWtm d251ZYM3NiTjEU7kN9Vpm1 F5wV8ctKSgHVBdgYOcYdMl KVFmga0ttBZpOOljx1OdJT Z2pjW2xZUynMNjQOCzLN38 Gcjab4RlJtohQPF8UGLyqf Aav9Bca7scNwNsepJfK1rn V8LtSSOfMEYiKBKjQmQmnk Udu5Bpa8MffXNftLs0l6in TWCkSGTwhUjkz7fbITZ4XM ZdJ1V6iVAyo3pxZRbzKUBb bTZ6joH0YTDmnVAbV9QjcT 3bNAWuAE9ozlq7j4mxOOH2 IPvkEYLxEsG7jzR0HSRmxU ZrSBNzaGglDRncq242QHE2 YlGxNJYlf4CbM5MloJetA6 6qqTczZ50bRMXhjEclmN4q tWwoiH2sIbLxZfWrIVvihK xwbGFpblxmMVxmczIwXGxh yvsdTKQjNUhwT1jjWmRnSH JawPeaZAtns7KdTKCkVMYm SjMqRYywfl8gX55iyHMzXK sucNvkZSUeu02vjCNtiNHu Fu1hjDXvEbvpCFD8 [facility] Vancomycin Level, Randomon 0 10-11-2018 Vancomycin mass conc 14.3 mcg/mL [facility] established reference range. [facility] XR Foot Left 2 Viewson 10-11 EXAMINATION: 2 XRAY VIEWS OF THE LEFT FOOT 10/08/2018 11:54 am COMPARISON: 10/04/2018. 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 Surgical drain is present. Evidence of remote ORIF of the lateral malleolus. Overlying casting obscures detail. 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 Surgical drain present. [employer]ASSANDRA/[employer] Workstation ID: [id number] [facility] Interface, Rad In Fu ji Speechq - 10/11/2018 8:39 AM EST EXAMINATION: 2 XRAY VIEWS OF THE LEFT FOOT 10/08/2018 11:54 am COMPARISON: 10/04/2018. 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 Surgical drain is present. Evidence of remote ORIF of the lateral malleolus. Overlying casting obscures detail. 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 Surgical drain present. [employer] Workstation ID: [id number] [facility] Creatinine, Serumon 10-10-19 19 Creatinine mass conc 1.06 mg/dL 0.8 - 1 .3 mg/dL [facility] GFR/1.73 sq M predicted among non-blacks MDRD vol rate/area (S/P/Bld) The eGFR should be used for monitoring renal function only and not for medication dosing. [facility] GFR/1.73 sq M.predicted CKD-EPI vol rate/area (S/P/Bld) 66 >=60 mL/min/1.73 m2 [facility] Interpretation and review of laboratory results Normal [facility] ECG 12-LEADon 10-10-2018 Atrial Rate 72 BPM [facility] P [place] -163 degrees [facility] P-R Interval 162 ms [facility] Q-T Interval 418 ms [facility] QRS Duration 98 ms [facility] QTC Calculation (Bezet) 457 ms [facility] R [place] 137 degrees [facility] T [place] 134 degrees [facility] Ventricular Rate 72 BPM [facility] th Suspect arm lead reversal, interpretation assumes no reversal Unusual P axis, possible ectopic atrial rhythm Lateral infarct , age undetermined Abnormal ECG When compared with ECG of 05-SEP-2018 13:28, Ectopic atrial rhythm has replaced Sinus rhythm QRS axis Shifted right Confirmed by Maxim Ward M.D. ([id number]) on 10/10/2018 1:34:17 PM [facility] Hemoglobin and Hematocriton 10-10-2018 Hematocrit Volume Fraction (Bld) 25.1 % Low 41 - 53 % [facility] Comment on above: PRE-WAMED FOR COLD A GGLUTININ Hemoglobin mass conc (Bld) 8.2 g/dL Low 13.5 - 17.5 g/dL [facility] Interpretation and review of laboratory results Abnormal [facility] Hematocrit Volume Fraction (Bld) 24.0 % Low 41 - 53 % [facility] Hemoglobin mass conc (Bld) 8.3 g/dL Low 13.5 - 17.5 g/dL [facility] Interpretation and review of laboratory results Abnormal [facility] Vancomycin Level, Troughon 0 10-10-2018 Interpretation and review of laboratory results Abnormal [facility] Vancomycin trough mass conc 27.4 ug/mL Critically high [facility] XR Chest 1 Viewon 10-10-2018 Interface, Rad In Baljit garcia Speechq - 10/10/2018 8:25 AM EST EXAMINATION: SINGLE XRAY VIEW OF THE CHEST 10/09/2018 1:58 pm COMPARISON: 09/07/2018. HISTORY: ORDERING SYSTEM PROVIDED HISTORY: Dyspnea; TECHNOLOGIST PROVIDED HISTORY: Reason for Exam: Dyspnea Illness/Other Acuity: Acute Cancer History: unk Surgery, Radiation History: YES Type of Encounter: Initial FINDINGS: Status post median sternotomy. Cardiac and mediastinal contours enlarged but unchanged. Hyperinflated lungs, with prominence of the interstitial lung markings. There are increased bibasilar pulmonary opacities. No significant pleural effusion within visualized lungs. Left costophrenic angle is partially imaged. No evidence of pneumothorax. No evidence of acute osseous abnormalities. IMPRESSION: 1. Increased bibasilar pulmonary opacities may represent atelectasis, pneumonia, and/or aspiration. Recommend radiographic follow-up to complete resolution. 2. Findings suggestive of underlying COPD. [employer] Workstation ID: [id number] [facility] 1. Increased bibasil ar pulmonary opacities may represent atelectasis, pneumonia, and/or aspiration. Recommend radiographic follow-up to complete resolution. 2. Findings suggestive of underlying COPD. [employer] Workstation ID: [id number] [facility] EXAMINATION: SINGLE XRAY VIEW OF THE CHEST 10/09/2018 1:58 pm COMPARISON: 09/07/2018. HISTORY: ORDERING SYSTEM PROVIDED HISTORY: Dyspnea; TECHNOLOGIST PROVIDED HISTORY: Reason for Exam: Dyspnea Illness/Other Acuity: Acute Cancer History: unk Surgery, Radiation History: YES Type of Encounter: Initial FINDINGS: Status post median sternotomy. Cardiac and mediastinal contours enlarged but unchanged. Hyperinflated lungs, with prominence of the interstitial lung markings. There are increased bibasilar pulmonary opacities. No significant pleural effusion within visualized lungs. Left costophrenic angle is partially imaged. No evidence of pneumothorax. No evidence of acute osseous abnormalities. [facility] Basic Metabolic Panelon 09-28 Anion gap molar conc 16 mmol/L 10 - 20 mmol/L [facility] Calcium mass conc 8.6 mg/dL 8.4 - 10.2 mg/dL [facility] Chloride molar conc 106 mmol/L 98 - 108 mmol/L [facility] Creatinine mass conc 0.90 mg/dL 0.8 - 1 .3 mg/dL [facility] GFR/1.73 sq M predicted among non-blacks MDRD vol rate/area (S/P/Bld) The eGFR should be used for monitoring renal function only and not for medication dosing. [facility] GFR/1.73 sq M.predicted CKD-EPI vol rate/area (S/P/Bld) 81 >=60 mL/min/1.73 m2 [facility] Glucose mass conc 111 mg/dL High 65 - 99 mg/dL [facility] HCO3 molar conc 23 mmol/L 21 - 32 mmol/L [facility] Interpretation and review of laboratory results Abnormal [facility] Potassium molar conc 4.2 mmol/L 3.5 - 5 .1 mmol/L [facility] Sodium molar conc 141 mmol/L 135 - 145 mmol/L [facility] Urea nitrogen mass conc 9 mg/dL 8 - 25 mg/dL [facility] Urea nitrogen/Creatinine mass ratio 10.0 mg/mg [facility] CBCon 10-09-2018 Erythrocyte distribution width Entitic volume (RBC) 15.3 % High 11.6 - 14.8 % [facility] Hematocrit Volume Fraction (Bld) 27.7 % Low 41 - 53 % [facility] Hemoglobin mass conc (Bld) 8.9 g/dL Low 13.5 - 17.5 g/dL [facility] Interpretation and review of laboratory results Abnormal [facility] MCH Entitic mass (RBC) 31.2 pg 26 - 34 pg [facility] MCHC mass conc (RBC) 32.1 g/dL 31 - 37 g/dL [facility] Comment on above: Cold Agglutinin pres ent MCV Entitic volume (RBC) 97.2 fL 80 - 100 fL [facility] Nucleated RBC #/vol (Bld) 0.00 10*3/uL [facility] Nucleated RBC/100 WBC Ratio (Bld) 0.0 % [facility] Platelet mean volume Entitic volume (Bld) 9.7 fL 9 - 15.5 fL [facility] Platelets #/vol (Bld) 187 10*3/uL [facility] RBC #/vol (Bld) 2.85 10*6/uL Low [facility] WBC #/vol (Bld) 5.18 10*3/uL [facility] Creatinine, Serumon 10-09-19 19 Creatinine mass conc 0.95 mg/dL 0.8 - 1 .3 mg/dL [facility] GFR/1.73 sq M predicted among non-blacks MDRD vol rate/area (S/P/Bld) The eGFR should be used for monitoring renal function only and not for medication dosing. [facility] GFR/1.73 sq M.predicted CKD-EPI vol rate/area (S/P/Bld) 76 >=60 mL/min/1.73 m2 [facility] Interpretation and review of laboratory results Normal [facility] Gastrocult Gastricon 019 Hemoglobin.gastrointes tinal Ql (Ciera fld) Positive Abnormal Negative for Occult Blood [facility] Interpretation and review of laboratory results Abnormal [facility] Hemoglobin and Hematocriton 10-09-2018 Hematocrit Volume Fraction (Bld) 23.2 % Low 41 - 53 % [facility] Hemoglobin mass conc (Bld) 8.6 g/dL Low 13.5 - 17.5 g/dL [facility] Interpretation and review of laboratory results Abnormal [facility] XR CHEST PA/APon 10-09-2018 XR CHEST PA/AP EXAMINATION: SINGLE XRAY VIEW OF THE CHEST 10/09/2018 1:58 pm COMPARISON: 09/07/2018. HISTORY: ORDERING SYSTEM PROVIDED HISTORY: Dyspnea; TECHNOLOGIST PROVIDED HISTORY: Reason for Exam: Dyspnea Illness/Other Acuity: Acute Cancer History: unk Surgery, Radiation History: YES Type of Encounter: Initial FINDINGS: Status post median sternotomy. Cardiac and mediastinal contours enlarged but unchanged. Hyperinflated lungs, with prominence of the interstitial lung markings. There are increased bibasilar pulmonary opacities. No significant pleural effusion within visualized lungs. Left costophrenic angle is partially imaged. No evidence of pneumothorax. No evidence of acute osseous abnormalities. IMPRESSION: 1. Increased bibasilar pulmonary opacities may represent atelectasis, pneumonia, and/or aspiration. Recommend radiographic follow-up to complete resolution. 2. Findings suggestive of underlying COPD. [employer] Workstation ID: [id number] Dictated by: MOJGAN PINO on MonOct 09, 2018 2:31:15 PM EST Transcribed by: MICHAEL ROBLES on MonOct 09, 2018 2:40:23 PM EST Finalized by: MOJGAN PINO on MonOct 10, 2018 8:22:38 AM EST [facility] Comment on above: Order Comment: Reaso n for exam?:Dyspnea Injury/Trauma or Illness?:Illness/Other How long have you had these symptoms (acute/chronic)?:Acute History of cancer?:unk Surgeries, chemotherapy, or radiation?:YES Type of Exam?:Initial Additional signs and symptoms?:na Basic Metabolic Panelon 09-28 Anion gap molar conc 16 mmol/L 10 - 20 mmol/L [facility] Calcium mass conc 9.1 mg/dL 8.4 - 10.2 mg/dL [facility] Chloride molar conc 108 mmol/L 98 - 108 mmol/L [facility] Creatinine mass conc 0.70 mg/dL Low 0.8 - 1 .3 mg/dL [facility] GFR/1.73 sq M predicted among non-blacks MDRD vol rate/area (S/P/Bld) The eGFR should be used for monitoring renal function only and not for medication dosing. [facility] GFR/1.73 sq M.predicted CKD-EPI vol rate/area (S/P/Bld) 90 >=60 mL/min/1.73 m2 [facility] Glucose mass conc 90 mg/dL 65 - 99 mg/dL [facility] HCO3 molar conc 23 mmol/L 21 - 32 mmol/L [facility] Interpretation and review of laboratory results Abnormal [facility] Potassium molar conc 3.8 mmol/L 3.5 - 5 .1 mmol/L [facility] Sodium molar conc 143 mmol/L 135 - 145 mmol/L [facility] Urea nitrogen mass conc 6 mg/dL Low 8 - 25 mg/dL [facility] Urea nitrogen/Creatinine mass ratio 8.6 mg/mg Low [facility] CBCon 10-08-2018 Erythrocyte distribution width Entitic volume (RBC) 15.5 % High 11.6 - 14.8 % [facility] Hematocrit Volume Fraction (Bld) 31.0 % Low 41 - 53 % [facility] Hemoglobin mass conc (Bld) 10.4 g/dL Low 13.5 - 17.5 g/dL [facility] Interpretation and review of laboratory results Abnormal [facility] MCH Entitic mass (RBC) 33.4 pg 26 - 34 pg [facility] MCHC mass conc (RBC) 33.5 g/dL 31 - 37 g/dL [facility] MCV Entitic volume (RBC) 99.7 fL 80 - 100 fL [facility] Nucleated RBC #/vol (Bld) 0.00 10*3/uL [facility] Nucleated RBC/100 WBC Ratio (Bld) 0.0 % [facility] Platelet mean volume Entitic volume (Bld) 9.7 fL 9 - 15.5 fL [facility] Platelets #/vol (Bld) 202 10*3/uL [facility] Comment on above: Platelets clumped on peripheral smear. Results may be affected RBC #/vol (Bld) 3.11 10*6/uL [facility] WBC #/vol (Bld) 3.86 10*3/uL [facility] ECHOCARDIOGRAM COMPLETEon ECHOCARDIOGRAM COMPLETE REPORT ____ Patient: SHERRY Bazan [facility] Rec#: [id number] (Age): 1940(78y) Height: 188(cm)/73(in) Study Date: 10/08/2018 Weight: 99(kg)/218(lbs) Room#: 2456 BSA: [id number] Type: Inpatient Loc: [facility] Echo Lab Sex: M ____ Reading: Emmanuel Connor MD F Referring: AARON CHOI DANIEL Shop Welder: Geovani Matson [facility], [facility] History: Hyperlipidemia Hypertension. Valvular disease. Diagnosis: ICD-10-PCS Encounter for preprocedural cardiovascular examination (Z01.810) Cardiac Complications, not classified (997.1) CPT Code(s): ECHO COMPLETE W/ DOPPLER (56657) HCPCS Code C8923 Echo Full w/ contrast. Study Quality The study quality is fair. Summary: Patient identity verified and ID band on (pause and confirm). Current HP present on patient chart. Procedure explained and patient verified understanding. Definity explained to patient. Patient verbalizes understanding and agrees to proceed. Definity 1.3ml/8.7ml normal sterile saline 2 ml total given IV over 30-60 seconds. Conclusions: There is normal left ventricular systolic function. Moderate concentric left ventricular hypertrophy is observed. The diastolic filling pattern is consistent with impaired relaxation and normal LA pressure (Mild diastolic dysfunction). The estimated ejection fraction is 55-60%. The left atrium is mildly dilated. The right ventricle is moderately dilated. The right ventricular global systolic function is moderately reduced. There is mild aortic regurgitation. There is mild mitral regurgitation. Findings Reason For Study: Pre-op cardiac evaluation. Left Ventricle: The left ventricular chamber size is normal. Moderate concentric left ventricular hypertrophy is observed. There is normal left ventricular systolic function. The estimated ejection fraction is 55-60%. The diastolic filling pattern is consistent with impaired relaxation and normal LA pressure (Mild diastolic dysfunction). Left Atrium: The left atrium is mildly dilated. Right Ventricle: The right ventricle is moderately dilated. The right ventricular global systolic function is moderately reduced. Right Atrium: The right atrium appears normal. Aortic Valve: The aortic valve is trileaflet. Moderate aortic cusp sclerosis is present. There is no hemodynamically significant stenosis. There is mild aortic regurgitation. Mitral Valve: The mitral valve leaflets are moderately thickened. Mild mitral leaflet calcification is visualized. Mitral valve leaflet mobility appears normal. There is mild mitral regurgitation. Tricuspid Valve: The tricuspid valve appears grossly normal in structure and function. There is mild tricuspid regurgitation. The right ventricular systolic pressure is 30.2 mmHg. Pulmonic Valve: The pulmonic valve appears grossly normal in structure and function. There is mild pulmonic regurgitation. Pericardium: There is no pericardial effusion. The pericardium appears grossly normal. Aorta: There is mild dilatation of the ascending aorta. There is plaque visualized in the ascending aorta. HR 77 BP 134/67 Measurements Chambers MM Name Value Normal Range AV cusp separation (MM) 1.9 cm none Chambers 2D Name Value Normal Range IVSd (2D) 1.46 cm none LVPWd (2D) 1.34 cm none IVS:LVPW ratio (2D) 1.09 ratio none LVIDd (2D) 4.56 cm none LVIDs (2D) 3.6 cm none LVIDd (2D) index 2.02 cm/m2 none LVIDs (2D) index 1.6 cm/m2 none LV FS (2D) 21.05 % none LV FS (Teichholz) (2D) 21.1 % none LV FS (cube) (2D) 21.1 % none EF Teichholz (2D) 42.92 % none Ao root diameter (2D) 4.4 cm none LA dimension (AP) 2D 4.2 cm none LA:Ao ratio (2D) 0.95 ratio none Aortic root diameter (2D) inde1.95 cm/m2 none LA dimension (2D) index 1.86 cm/m2 none Volumes/Mass Name Value Normal Range LA ESV SP 4CH (MOD) 64 ml none LA ESV SP 2CH (MOD) 64.6 ml none LA ESV BP (MOD) 66.5 ml none LA ESV BP (MOD) index 29.48 ml/m2 none LV EDV SP 4CH (MOD) 171 ml none LV ESV SP 4CH (MOD) 76.2 ml none EF SP 4CH (MOD) 55.44 % none LV EDV SP 2CH (MOD) 144 ml none LV ESV SP 2CH (MOD) 32.5 ml none EF SP 2CH (MOD) 77.43 % none LV EDV BP 161 ml none LV ESV BP 52.3 ml none BP EF (MOD) 67.52 % none LV EDV BP index 71.38 ml/m2 none LV ESV BP index 23.19 ml/m2 none LV mass (2D) 253.42 g none LV mass (2D) index 112.35 g/m2 none Diastolic/Systolic Function Name Value Normal Range MV E-wave Vmax 0.68 m/sec none MV deceleration time 236 msec none MV A-wave Vmax 1.05 m/sec none MV E:A ratio 0.64 ratio (1.1 - 1.5) LV E:e' septal ratio 12.7 ratio none LV E:e' lateral ratio 14.5 ratio none Aortic Valve Name Value Normal Range AV Vmax 1.01 m/sec (1 - 1.7) AV peak gradient 4.08 mmHg (Less Than 36) LVOT diameter 2.2 cm (1.7 - 2.5) LVOT Vmax 0.85 m/sec (0.7 - 1.1) LVOT peak gradient 3 mmHg none DOI (Vmax) 0.84 ratio none RAMIREZ (continuity Vmax) 3.21 cm2 none RAMIREZ (continuity Vmax) index 1.42 cm2/m2 none AR PHT 431 msec none AR peak gradient 50 mmHg none Ascending Ao 4.2 cm none Tricuspid Valve Name Value Normal Range TR Vmax 2.51 m/sec none TR peak gradient 25.2 mmHg none RAP 5 mmHg none RVSP 30.2 mmHg none Pulmonic Valve/Qp:Qs Name Value Normal Range PV Vmax 0.9 m/sec (0.6 - 0.9) PV peak gradient 3.[address] end-diastolic Vmax 1.41 m/sec none PA end-diastolic pressure 12.95 mmHg none PV acceleration time 77 msec none Electronically Signed at 10/08/2018 17:26:05 by: Emmanuel Connor MD [facility] REPORT ____ Patient: SHERRY Bazan [facility] Rec#: [id number] (Age): 1940(78y) Height: 188(cm)/73(in) Study Date: 10/08/2018 Weight: 99(kg)/218(lbs) Room#: 2456 BSA: [id number] Type: Inpatient Loc: [facility] Echo Lab Sex: M ____ Reading: Emmanuel Connor MD F Referring: AARON CHOI DANIEL Shop Welder: Geovani Matson RD, T History: Hyperlipidemia Hypertension. Valvular disease. Diagnosis: ICD-10-PCS Encounter for preprocedural cardiovascular examination (Z01.810) Cardiac Complications, not classified (997.1) CPT Code(s): ECHO COMPLETE W/ DOPPLER (00629) HCPCS Code C8923 Echo Full w/ contrast. Study Quality The study quality is fair. Summary: Patient identity verified and ID band on (pause and confirm). Current HP present on patient chart. Procedure explained and patient verified understanding. Definity explained to patient. Patient verbalizes understanding and agrees to proceed. Definity 1.3ml/8.7ml normal sterile saline 2 ml total given IV over 30-60 seconds. Conclusions: There is normal left ventricular systolic function. Moderate concentric left ventricular hypertrophy is observed. The diastolic filling pattern is consistent with impaired relaxation and normal LA pressure (Mild diastolic dysfunction). The estimated ejection fraction is 55-60%. The left atrium is mildly dilated. The right ventricle is moderately dilated. The right ventricular global systolic function is moderately reduced. There is mild aortic regurgitation. There is mild mitral regurgitation. Findings Reason For Study: Pre-op cardiac evaluation. Left Ventricle: The left ventricular chamber size is normal. Moderate concentric left ventricular hypertrophy is observed. There is normal left ventricular systolic function. The estimated ejection fraction is 55-60%. The diastolic filling pattern is consistent with impaired relaxation and normal LA pressure (Mild diastolic dysfunction). Left Atrium: The left atrium is mildly dilated. Right Ventricle: The right ventricle is moderately dilated. The right ventricular global systolic function is moderately reduced. Right Atrium: The right atrium appears normal. Aortic Valve: The aortic valve is trileaflet. Moderate aortic cusp sclerosis is present. There is no hemodynamically significant stenosis. There is mild aortic regurgitation. Mitral Valve: The mitral valve leaflets are moderately thickened. Mild mitral leaflet calcification is visualized. Mitral valve leaflet mobility appears normal. There is mild mitral regurgitation. Tricuspid Valve: The tricuspid valve appears grossly normal in structure and function. There is mild tricuspid regurgitation. The right ventricular systolic pressure is 30.2 mmHg. Pulmonic Valve: The pulmonic valve appears grossly normal in structure and function. There is mild pulmonic regurgitation. Pericardium: There is no pericardial effusion. The pericardium appears grossly normal. Aorta: There is mild dilatation of the ascending aorta. There is plaque visualized in the ascending aorta. HR 77 BP 134/67 Measurements Chambers MM Name Value Normal Range AV cusp separation (MM) 1.9 cm none Chambers 2D Name Value Normal Range IVSd (2D) 1.46 cm none LVPWd (2D) 1.34 cm none IVS:LVPW ratio (2D) 1.09 ratio none LVIDd (2D) 4.56 cm none LVIDs (2D) 3.6 cm none LVIDd (2D) index 2.02 cm/m2 none LVIDs (2D) index 1.6 cm/m2 none LV FS (2D) 21.05 % none LV FS (Teichholz) (2D) 21.1 % none LV FS (cube) (2D) 21.1 % none EF Teichholz (2D) 42.92 % none Ao root diameter (2D) 4.4 cm none LA dimension (AP) 2D 4.2 cm none LA:Ao ratio (2D) 0.95 ratio none Aortic root diameter (2D) inde1.95 cm/m2 none LA dimension (2D) index 1.86 cm/m2 none Volumes/Mass Name Value Normal Range LA ESV SP 4CH (MOD) 64 ml none LA ESV SP 2CH (MOD) 64.6 ml none LA ESV BP (MOD) 66.5 ml none LA ESV BP (MOD) index 29.48 ml/m2 none LV EDV SP 4CH (MOD) 171 ml none LV ESV SP 4CH (MOD) 76.2 ml none EF SP 4CH (MOD) 55.44 % none LV EDV SP 2CH (MOD) 144 ml none LV ESV SP 2CH (MOD) 32.5 ml none EF SP 2CH (MOD) 77.43 % none LV EDV BP 161 ml none LV ESV BP 52.3 ml none BP EF (MOD) 67.52 % none LV EDV BP index 71.38 ml/m2 none LV ESV BP index 23.19 ml/m2 none LV mass (2D) 253.42 g none LV mass (2D) index 112.35 g/m2 none Diastolic/Systolic Function Name Value Normal Range MV E-wave Vmax 0.68 m/sec none MV deceleration time 236 msec none MV A-wave Vmax 1.05 m/sec none MV E:A ratio 0.64 ratio (1.1 - 1.5) LV E:e' septal ratio 12.7 ratio none LV E:e' lateral ratio 14.5 ratio none Aortic Valve Name Value Normal Range AV Vmax 1.01 m/sec (1 - 1.7) AV peak gradient 4.08 mmHg (Less Than 36) LVOT diameter 2.2 cm (1.7 - 2.5) LVOT Vmax 0.85 m/sec (0.7 - 1.1) LVOT peak gradient 3 mmHg none DOI (Vmax) 0.84 ratio none RAMIREZ (continuity Vmax) 3.21 cm2 none RAMIREZ (continuity Vmax) index 1.42 cm2/m2 none AR PHT 431 msec none AR peak gradient 50 mmHg none Ascending Ao 4.2 cm none Tricuspid Valve Name Value Normal Range TR Vmax 2.51 m/sec none TR peak gradient 25.2 mmHg none RAP 5 mmHg none RVSP 30.2 mmHg none Pulmonic Valve/Qp:Qs Name Value Normal Range PV Vmax 0.9 m/sec (0.6 - 0.9) PV peak gradient 3.[address] end-diastolic Vmax 1.41 m/sec none PA end-diastolic pressure 12.95 mmHg none PV acceleration time 77 msec none Electronically Signed at 10/08/2018 17:26:05 by: Emmanuel Connor MD [facility] Interface, Rad In [facility] - 10/08/2018 5:27 PM EST REPORT ____ Patient: SHERRY Bazan [facility] Rec#: [id number] (Age): 1940(78y) Height: 188(cm)/73(in) Study Date: 10/08/2018 Weight: 99(kg)/218(lbs) Room#: 2456 BSA: [id number] Type: Inpatient Loc: [facility] Echo Lab Sex: M ____ Reading: Emmanuel Connor MD F Referring: AARON CHOI DANIEL Shop Welder: Geovani Matson [facility], T History: Hyperlipidemia Hypertension. Valvular disease. Diagnosis: ICD-10-PCS Encounter for preprocedural cardiovascular examination (Z01.810) Cardiac Complications, not classified (997.1) CPT Code(s): ECHO COMPLETE W/ DOPPLER (85422) HCPCS Code C8923 Echo Full w/ contrast. Study Quality The study quality is fair. Summary: Patient identity verified and ID band on (pause and confirm). Current HP present on patient chart. Procedure explained and patient verified understanding. Definity explained to patient. Patient verbalizes understanding and agrees to proceed. Definity 1.3ml/8.7ml normal sterile saline 2 ml total given IV over 30-60 seconds. Conclusions: There is normal left ventricular systolic function. Moderate concentric left ventricular hypertrophy is observed. The diastolic filling pattern is consistent with impaired relaxation and normal LA pressure (Mild diastolic dysfunction). The estimated ejection fraction is 55-60%. The left atrium is mildly dilated. The right ventricle is moderately dilated. The right ventricular global systolic function is moderately reduced. There is mild aortic regurgitation. There is mild mitral regurgitation. Findings Reason For Study: Pre-op cardiac evaluation. Left Ventricle: The left ventricular chamber size is normal. Moderate concentric left ventricular hypertrophy is observed. There is normal left ventricular systolic function. The estimated ejection fraction is 55-60%. The diastolic filling pattern is consistent with impaired relaxation and normal LA pressure (Mild diastolic dysfunction). Left Atrium: The left atrium is mildly dilated. Right Ventricle: The right ventricle is moderately dilated. The right ventricular global systolic function is moderately reduced. Right Atrium: The right atrium appears normal. Aortic Valve: The aortic valve is trileaflet. Moderate aortic cusp sclerosis is present. There is no hemodynamically significant stenosis. There is mild aortic regurgitation. Mitral Valve: The mitral valve leaflets are moderately thickened. Mild mitral leaflet calcification is visualized. Mitral valve leaflet mobility appears normal. There is mild mitral regurgitation. Tricuspid Valve: The tricuspid valve appears grossly normal in structure and function. There is mild tricuspid regurgitation. The right ventricular systolic pressure is 30.2 mmHg. Pulmonic Valve: The pulmonic valve appears grossly normal in structure and function. There is mild pulmonic regurgitation. Pericardium: There is no pericardial effusion. The pericardium appears grossly normal. Aorta: There is mild dilatation of the ascending aorta. There is plaque visualized in the ascending aorta. HR 77 BP 134/67 Measurements Chambers MM Name Value Normal Range AV cusp separation (MM) 1.9 cm none Chambers 2D Name Value Normal Range IVSd (2D) 1.46 cm none LVPWd (2D) 1.34 cm none IVS:LVPW ratio (2D) 1.09 ratio none LVIDd (2D) 4.56 cm none LVIDs (2D) 3.6 cm none LVIDd (2D) index 2.02 cm/m2 none LVIDs (2D) index 1.6 cm/m2 none LV FS (2D) 21.05 % none LV FS (Teichholz) (2D) 21.1 % none LV FS (cube) (2D) 21.1 % none EF Teichholz (2D) 42.92 % none Ao root diameter (2D) 4.4 cm none LA dimension (AP) 2D 4.2 cm none LA:Ao ratio (2D) 0.95 ratio none Aortic root diameter (2D) inde1.95 cm/m2 none LA dimension (2D) index 1.86 cm/m2 none Volumes/Mass Name Value Normal Range LA ESV SP 4CH (MOD) 64 ml none LA ESV SP 2CH (MOD) 64.6 ml none LA ESV BP (MOD) 66.5 ml none LA ESV BP (MOD) index 29.48 ml/m2 none LV EDV SP 4CH (MOD) 171 ml none LV ESV SP 4CH (MOD) 76.2 ml none EF SP 4CH (MOD) 55.44 % none LV EDV SP 2CH (MOD) 144 ml none LV ESV SP 2CH (MOD) 32.5 ml none EF SP 2CH (MOD) 77.43 % none LV EDV BP 161 ml none LV ESV BP 52.3 ml none BP EF (MOD) 67.52 % none LV EDV BP index 71.38 ml/m2 none LV ESV BP index 23.19 ml/m2 none LV mass (2D) 253.42 g none LV mass (2D) index 112.35 g/m2 none Diastolic/Systolic Function Name Value Normal Range MV E-wave Vmax 0.68 m/sec none MV deceleration time 236 msec none MV A-wave Vmax 1.05 m/sec none MV E:A ratio 0.64 ratio (1.1 - 1.5) LV E:e' septal ratio 12.7 ratio none LV E:e' lateral ratio 14.5 ratio none Aortic Valve Name Value Normal Range AV Vmax 1.01 m/sec (1 - 1.7) AV peak gradient 4.08 mmHg (Less Than 36) LVOT diameter 2.2 cm (1.7 - 2.5) LVOT Vmax 0.85 m/sec (0.7 - 1.1) LVOT peak gradient 3 mmHg none DOI (Vmax) 0.84 ratio none RAMIREZ (continuity Vmax) 3.21 cm2 none RAMIREZ (continuity Vmax) index 1.42 cm2/m2 none AR PHT 431 msec none AR peak gradient 50 mmHg none Ascending Ao 4.2 cm none Tricuspid Valve Name Value Normal Range TR Vmax 2.51 m/sec none TR peak gradient 25.2 mmHg none RAP 5 mmHg none RVSP 30.2 mmHg none Pulmonic Valve/Qp:Qs Name Value Normal Range PV Vmax 0.9 m/sec (0.6 - 0.9) PV peak gradient 3.[address] end-diastolic Vmax 1.41 m/sec none PA end-diastolic pressure 12.95 mmHg none PV acceleration time 77 msec none Electronically Signed at 10/08/2018 17:26:05 by: Emmanuel Connor MD [facility] PT/INRon 10-08-2018 INR Coag RelTime (PPP) 1.1 {INR} [facility] Interpretation and review of laboratory results Normal [facility] Prothrombin time (PT) Coag time (PPP) 13.9 s [facility] During the induction phase of oral anticoagulation, the INR may not reflect the anticoagulation status of the patient. Therapeutic ranges for INR's are: Most clinical situations: INR 2.0-3.0 Mechanical Prosthetic Valve: INR 2.5-3.5 Critical: INR >5.0 [facility] XR FOOT LEFT 2 VIEWSon 10-08 XR FOOT LEFT 2 VIEWS EXAMINATION: 2 XRAY VIEWS OF THE LEFT FOOT 10/08/2018 11:54 am COMPARISON: 10/04/2018. 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 Surgical drain is present. Evidence of remote ORIF of the lateral malleolus. Overlying casting obscures detail. 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 Surgical drain present. CASSANDRA/karie Workstation ID: [id number] Dictated by: NAT RHODES on MonOct 08, 2018 1:43:13 PM EST Transcribed by: JAK WATSON on MonOct 08, 2018 2:16:35 PM EST Finalized by: NAT RHODES on MonOct 11, 2018 8:36:46 AM EST Normal [facility] Comment on above: Order Comment: Reaso n for exam?:post-op foot / ankle Injury/Trauma or Illness?:Illness/Other How long have you had these symptoms (acute/chronic)?:Unknown History of cancer?:unk Surgeries, chemotherapy, or radiation?:YES Type of Exam?:Ongoing Additional signs and symptoms?:UNL Creatinine, Serumon 10-07-19 19 Creatinine mass conc 0.70 mg/dL Low 0.8 - 1 .3 mg/dL [facility] GFR/1.73 sq M predicted among non-blacks MDRD vol rate/area (S/P/Bld) The eGFR should be used for monitoring renal function only and not for medication dosing. [facility] GFR/1.73 sq M.predicted CKD-EPI vol rate/area (S/P/Bld) 90 >=60 mL/min/1.73 m2 [facility] Interpretation and review of laboratory results Abnormal [facility] Vancomycin Level, Troughon 0 10-07-2018 Interpretation and review of laboratory results Normal [facility] Vancomycin trough mass conc 10.9 ug/mL [facility] XR FOOT LEFT 3+ VIEWS (STAND KHALIF)on 10-06-2018 1. Limited evaluatio n due to overlying dressing material and diffuse osteopenia. No radiographic evidence of soft tissue gas. No radiographic evidence of new area of osseous destruction. 2. No acute osseous abnormalities identified. RECOMMENDATIONS: If further evaluation is clinically warranted, consider MRI or CT. TRP/dbg Workstation ID: [id number] [facility] Interface, Rad In Baljit ji Speechq - 10/06/2018 3:46 PM EST EXAMINATION: 3 XRAY VIEWS OF THE LEFT FOOT 10/04/2018 3:52 pm COMPARISON: 09/20/2018. HISTORY: ORDERING SYSTEM PROVIDED HISTORY: Left foot gangrene; TECHNOLOGIST PROVIDED HISTORY: Reason for Exam: Left foot gangrene Illness/Other Acuity: Unknown Cancer History: unk Surgery, Radiation History: unk Type of Encounter: Unknown Additional signs and symptoms: Left foot gangrene FINDINGS: Overlying dressing material somewhat limits evaluation. Diffuse osteopenia also limits evaluation. No convincing evidence of new osseous destruction. No convincing evidence of soft tissue gas. No acute fracture or dislocation. Plate and screw fixation of the distal tibia. IMPRESSION: 1. Limited evaluation due to overlying dressing material and diffuse osteopenia. No radiographic evidence of soft tissue gas. No radiographic evidence of new area of osseous destruction. 2. No acute osseous abnormalities identified. RECOMMENDATIONS: If further evaluation is clinically warranted, consider MRI or CT. [employer] Workstation ID: [id number] [facility] EXAMINATION: 3 XRAY VIEWS OF THE LEFT FOOT 10/04/2018 3:52 pm COMPARISON: 09/20/2018. HISTORY: ORDERING SYSTEM PROVIDED HISTORY: Left foot gangrene; TECHNOLOGIST PROVIDED HISTORY: Reason for Exam: Left foot gangrene Illness/Other Acuity: Unknown Cancer History: unk Surgery, Radiation History: unk Type of Encounter: Unknown Additional signs and symptoms: Left foot gangrene FINDINGS: Overlying dressing material somewhat limits evaluation. Diffuse osteopenia also limits evaluation. No convincing evidence of new osseous destruction. No convincing evidence of soft tissue gas. No acute fracture or dislocation. Plate and screw fixation of the distal tibia. [facility] Basic Metabolic Panelon 02-0 Anion gap molar conc 15 mmol/L 10 - 20 mmol/L [facility] Calcium mass conc 9.1 mg/dL 8.4 - 10.2 mg/dL [facility] Chloride molar conc 109 mmol/L High 98 - 108 mmol/L [facility] Creatinine mass conc 0.67 mg/dL Low 0.8 - 1 .3 mg/dL [facility] GFR/1.73 sq M predicted among non-blacks MDRD vol rate/area (S/P/Bld) The eGFR should be used for monitoring renal function only and not for medication dosing. [facility] GFR/1.73 sq M.predicted CKD-EPI vol rate/area (S/P/Bld) 91 >=60 mL/min/1.73 m2 [facility] Glucose mass conc 92 mg/dL 65 - 99 mg/dL [facility] HCO3 molar conc 23 mmol/L 21 - 32 mmol/L [facility] Interpretation and review of laboratory results Abnormal [facility] Potassium molar conc 4.2 mmol/L 3.5 - 5 .1 mmol/L [facility] Sodium molar conc 143 mmol/L 135 - 145 mmol/L [facility] Urea nitrogen mass conc 9 mg/dL 8 - 25 mg/dL [facility] Urea nitrogen/Creatinine mass ratio 13.4 mg/mg [facility] CBCon 10-05-2018 Comment PERIPHERAL SMEAR REVIEWED MANUALLY [facility] Erythrocyte distribution width Entitic volume (RBC) 15.5 % High 11.6 - 14.8 % [facility] Hematocrit Volume Fraction (Bld) 31.9 % Low 41 - 53 % [facility] Hemoglobin mass conc (Bld) 11.0 g/dL Low 13.5 - 17.5 g/dL [facility] Interpretation and review of laboratory results Abnormal [facility] MCH Entitic mass (RBC) 34.2 pg High 26 - 34 pg [facility] MCHC mass conc (RBC) 34.5 g/dL 31 - 37 g/dL [facility] MCV Entitic volume (RBC) 99.1 fL 80 - 100 fL [facility] Nucleated RBC #/vol (Bld) 0.00 10*3/uL [facility] Nucleated RBC/100 WBC Ratio (Bld) 0.0 % [facility] Platelet mean volume Entitic volume (Bld) 9.5 fL 9 - 15.5 fL [facility] Platelets #/vol (Bld) 237 10*3/uL [facility] RBC #/vol (Bld) 3.22 10*6/uL Low [facility] WBC #/vol (Bld) 3.95 10*3/uL Low [facility] Prewarmed Patient beck s cold agglutinin. [facility] CBC WITH AUTO DIFFERENTIALon 10-04-2018 Basophils #/vol (Bld) 0.03 10*3/uL [facility] Basophils/100 WBC (Bld) 0.6 % [facility] Eosinophils #/vol (Bld) 0.14 10*3/uL [facility] Eosinophils/100 WBC (Bld) 3.0 % [facility] Erythrocyte distribution width Entitic volume (RBC) 15.7 % High 11.6 - 14.8 % [facility] Hematocrit Volume Fraction (Bld) 32.7 % Low 41 - 53 % [facility] Hemoglobin mass conc (Bld) 11.3 g/dL Low 13.5 - 17.5 g/dL [facility] Immature granulocytes #/vol (Bld) 0.02 10*3/uL [facility] Immature granulocytes/100 WBC (Bld) 0.40 % [facility] Comment on above: The IG parameter is the percentage of metamyelocytes, myelocytes, and promyelocytes. Interpretation and review of laboratory results Abnormal [facility] Lymphocytes #/vol (Bld) 0.94 10*3/uL [facility] Lymphocytes/100 WBC (Bld) 20.3 % [facility] MCH Entitic mass (RBC) 33.6 pg 26 - 34 pg [facility] MCHC mass conc (RBC) 34.6 g/dL 31 - 37 g/dL [facility] MCV Entitic volume (RBC) 97.3 fL 80 - 100 fL [facility] Monocytes #/vol (Bld) 0.46 10*3/uL [facility] Monocytes/100 WBC (Bld) 10.0 % [facility] Neutrophils #/vol (Bld) 3.03 10*3/uL [facility] Neutrophils/100 WBC (Bld) 65.7 % [facility] Nucleated RBC #/vol (Bld) 0.00 10*3/uL [facility] Nucleated RBC/100 WBC Ratio (Bld) 0.0 % [facility] Platelet mean volume Entitic volume (Bld) 8.5 fL Low 9 - 15.5 fL [facility] Platelets #/vol (Bld) 248 10*3/uL [facility] RBC #/vol (Bld) 3.36 10*6/uL Low [facility] WBC #/vol (Bld) 4.62 10*3/uL [facility] CRP, Inflammationon 10-04-19 19 CRP mass conc 12.5 mg/L High 0 - 10 mg/L [facility] Interpretation and review of laboratory results Abnormal [facility] Comprehensive Metabolic Pane alexandra 10-04-2018 Albumin mass conc 3.5 g/dL 3.2 - 5.2 g/dL [facility] ALP enzyme act/vol 109 U/L 40 - 150 U/L [facility] ALT enzyme act/vol 25 U/L 0 - 40 U/L [facility]th Anion gap molar conc 16 mmol/L 10 - 20 mmol/L [facility] AST enzyme act/vol 25 U/L 0 - 45 U/L [facility] Bilirubin mass conc 0.5 mg/dL 0 - 1.3 mg/dL [facility] Calcium mass conc 9.3 mg/dL 8.4 - 10.2 mg/dL [facility] Chloride molar conc 104 mmol/L 98 - 108 mmol/L [facility] Creatinine mass conc 0.92 mg/dL 0.8 - 1 .3 mg/dL [facility] GFR/1.73 sq M predicted among non-blacks MDRD vol rate/area (S/P/Bld) The eGFR should be used for monitoring renal function only and not for medication dosing. [facility] GFR/1.73 sq M.predicted CKD-EPI vol rate/area (S/P/Bld) 79 >=60 mL/min/1.73 m2 [facility] Glucose mass conc 94 mg/dL 65 - 99 mg/dL [facility] HCO3 molar conc 26 mmol/L 21 - 32 mmol/L [facility] Interpretation and review of laboratory results Normal [facility] Potassium molar conc 4.6 mmol/L 3.5 - 5 .1 mmol/L [facility] Protein mass conc 6.9 g/dL 6 - 8 g/dL [facility] Sodium molar conc 141 mmol/L 135 - 145 mmol/L [facility] Urea nitrogen mass conc 12 mg/dL 8 - 25 mg/dL [facility] Urea nitrogen/Creatinine mass ratio 13.0 mg/mg [facility] Hemoglobin A1con 10-04-2018 Average glucose Estimated from glycated hemoglobin mass conc (Bld) 88 mg/dL 68 - 126 mg/dL [facility] Hemoglobin A1c/Hemoglobin.total mass fraction (Bld) 4.7 % 4.2 - 6 % [facility] Interpretation and review of laboratory results Normal [facility] Sedimentation Rateon 019 ESR Velocity (Bld) 9 mm/h [facility] Interpretation and review of laboratory results Normal [facility] XR FOOT LEFT 3+ VIEWS (STAND KHALIF)on 10-04-2018 XR FOOT LEFT 3+ VIEWS (STANDARD) EXAMINATION: 3 XRAY VIEWS OF THE LEFT FOOT 10/04/2018 3:52 pm COMPARISON: 09/20/2018. HISTORY: ORDERING SYSTEM PROVIDED HISTORY: Left foot gangrene; TECHNOLOGIST PROVIDED HISTORY: Reason for Exam: Left foot gangrene Illness/Other Acuity: Unknown Cancer History: unk Surgery, Radiation History: unk Type of Encounter: Unknown Additional signs and symptoms: Left foot gangrene FINDINGS: Overlying dressing material somewhat limits evaluation. Diffuse osteopenia also limits evaluation. No convincing evidence of new osseous destruction. No convincing evidence of soft tissue gas. No acute fracture or dislocation. Plate and screw fixation of the distal tibia. IMPRESSION: 1. Limited evaluation due to overlying dressing material and diffuse osteopenia. No radiographic evidence of soft tissue gas. No radiographic evidence of new area of osseous destruction. 2. No acute osseous abnormalities identified. RECOMMENDATIONS: If further evaluation is clinically warranted, consider MRI or CT. TRP/dbg Workstation ID: [id number] Dictated by: MOJGAN PINO on MonOct 04, 2018 7:30:36 PM EST Transcribed by: RACHEAL ARZATE on [facility] Oct 04, 2018 7:42:46 PM EST Finalized by: MOJGAN PINO on [facility] Oct 06, 2018 3:44:00 PM EST [facility] Comment on above: Order Comment: Reaso n for exam?:Left foot gangrene Injury/Trauma or Illness?:Illness/Other How long have you had these symptoms (acute/chronic)?:Unknown History of cancer?:unk Surgeries, chemotherapy, or radiation?:unk Type of Exam?:Unknown Additional signs and symptoms?:Left foot gangrene Albuminon 09-20-2018 Albumin mass conc 3.3 g/dL 3.2 - 5.2 g/dL [facility] Interpretation and review of laboratory results Normal [facility] Otheron 09-20-2018 No acute osseous abnormalities identified. Status post remote ORIF of the distal fibula. Extensive vascular calcifications. [email or web address] Workstation ID: [id number] [facility] EXAMINATION: XR FOOT LEFT 3+ VIEWS (STANDARD); XR ANKLE LEFT 3+ VIEWS (STANDARD) HISTORY: ORDERING SYSTEM PROVIDED HISTORY: Critical lower limb ischemia, TECHNOLOGIST PROVIDED HISTORY: Reason for exam: Critical lower limb ischemia Illness/Other Cancer History: unk Surgery, RadiationHistory: unk Encounter Type: Unknown Additional signs and symptoms: unk ORDERING SYSTEM PROVIDED DIAGNOSIS CODES: I99.8 Critical lower limb ischemia COMPARISON: None available. FINDINGS: Three nonweightbearing views of the left ankle and 3 nonweightbearing views of the left foot. No displaced acute fracture or dislocation. Lateral fixation plate projects over the distal fibula. No evidence of complication. Fragmentation of the distal tip of the medial malleolus, likely sequela of remote injury. Joint spaces are preserved. No aggressive osseous lesions or bony demineralization. Extensive vascular calcifications. [facility] Interface, Rad In Fu ji Speechq - 09/21/2018 12:01 AM EST EXAMINATION: XR FOOT LEFT 3+ VIEWS (STANDARD); XR ANKLE LEFT 3+ VIEWS (STANDARD) HISTORY: ORDERING SYSTEM PROVIDED HISTORY: Critical lower limb ischemia, TECHNOLOGIST PROVIDED HISTORY: Reason for exam: Critical lower limb ischemia Illness/Other Cancer History: unk Surgery, RadiationHistory: unk Encounter Type: Unknown Additional signs and symptoms: unk ORDERING SYSTEM PROVIDED DIAGNOSIS CODES: I99.8 Critical lower limb ischemia COMPARISON: None available. FINDINGS: Three nonweightbearing views of the left ankle and 3 nonweightbearing views of the left foot. No displaced acute fracture or dislocation. Lateral fixation plate projects over the distal fibula. No evidence of complication. Fragmentation of the distal tip of the medial malleolus, likely sequela of remote injury. Joint spaces are preserved. No aggressive osseous lesions or bony demineralization. Extensive vascular calcifications. IMPRESSION: No acute osseous abnormalities identified. Status post remote ORIF of the distal fibula. Extensive vascular calcifications. [employer] Workstation ID: [id number] [facility] Interpretation and review of laboratory results Abnormal [facility] Prealbuminon 09-20-2018 Prealbumin mass conc 16.7 mg/dL Low 20 - 40 mg/dL [facility] Protein,Totalon 09-20-2018 Protein mass conc 5.9 g/dL Low 6 - 8 g/dL [facility] Basic Metabolic Panelon 08-28 Anion gap molar conc 12 mmol/L 10 - 20 mmol/L [facility] Calcium mass conc 8.9 mg/dL 8.4 - 10.2 mg/dL [facility] Chloride molar conc 101 mmol/L 98 - 108 mmol/L [facility] Creatinine mass conc 0.56 mg/dL Low 0.8 - 1 .3 mg/dL [facility] GFR/1.73 sq M predicted among non-blacks MDRD vol rate/area (S/P/Bld) The eGFR should be used for monitoring renal function only and not for medication dosing. [facility] GFR/1.73 sq M.predicted CKD-EPI vol rate/area (S/P/Bld) 98 >=60 mL/min/1.73 m2 [facility] Glucose mass conc 117 mg/dL High 65 - 99 mg/dL [facility] HCO3 molar conc 24 mmol/L 21 - 32 mmol/L [facility] Interpretation and review of laboratory results Abnormal [facility] Potassium molar conc 4.0 mmol/L 3.5 - 5 .1 mmol/L [facility] Sodium molar conc 133 mmol/L Low 135 - 145 mmol/L [facility] Urea nitrogen mass conc 12 mg/dL 8 - 25 mg/dL [facility] Urea nitrogen/Creatinine mass ratio 21.4 mg/mg High [facility] CBCon 09-13-2018 Erythrocyte distribution width Entitic volume (RBC) 14.1 % 11.6 - 14.8 % [facility] Hematocrit Volume Fraction (Bld) 25.4 % Low 41 - 53 % [facility] Hemoglobin mass conc (Bld) 8.6 g/dL Low 13.5 - 17.5 g/dL [facility] Interpretation and review of laboratory results Abnormal [facility] MCH Entitic mass (RBC) 31.2 pg 26 - 34 pg [facility] MCHC mass conc (RBC) 33.9 g/dL 31 - 37 g/dL [facility] Comment on above: Cold Agglutinin pres ent MCV Entitic volume (RBC) 92.0 fL 80 - 100 fL [facility] Nucleated RBC #/vol (Bld) 0.00 10*3/uL [facility] Nucleated RBC/100 WBC Ratio (Bld) 0.0 % [facility] Platelet mean volume Entitic volume (Bld) 10.0 fL 9 - 15.5 fL [facility] Platelets #/vol (Bld) 258 10*3/uL [facility] RBC #/vol (Bld) 2.76 10*6/uL Low [facility] WBC #/vol (Bld) 9.14 10*3/uL [facility] Hemoglobin and Hematocriton 09-13-2018 Hematocrit Volume Fraction (Bld) 24.1 % Low 41 - 53 % [facility] Hemoglobin mass conc (Bld) 7.7 g/dL Low 13.5 - 17.5 g/dL [facility] Interpretation and review of laboratory results Abnormal [facility] PT/INRon 09-13-2018 INR Coag RelTime (PPP) 1.2 {INR} High [facility] Interpretation and review of laboratory results Abnormal [facility] Prothrombin time (PT) Coag time (PPP) 14.9 s [facility] During the induction phase of oral anticoagulation, the INR may not reflect the anticoagulation status of the patient. Therapeutic ranges for INR's are: Most clinical situations: INR 2.0-3.0 Mechanical Prosthetic Valve: INR 2.5-3.5 Critical: INR >5.0 [facility] Basic Metabolic Panelon 08-28 Anion gap molar conc 11 mmol/L 10 - 20 mmol/L [facility] Calcium mass conc 8.6 mg/dL 8.4 - 10.2 mg/dL [facility] Chloride molar conc 97 mmol/L Low 98 - 108 mmol/L [facility] Creatinine mass conc 0.78 mg/dL Low 0.8 - 1 .3 mg/dL [facility] GFR/1.73 sq M predicted among non-blacks MDRD vol rate/area (S/P/Bld) The eGFR should be used for monitoring renal function only and not for medication dosing. [facility] GFR/1.73 sq M.predicted CKD-EPI vol rate/area (S/P/Bld) 86 >=60 mL/min/1.73 m2 [facility] Glucose mass conc 142 mg/dL High 65 - 99 mg/dL [facility] HCO3 molar conc 26 mmol/L 21 - 32 mmol/L [facility] Interpretation and review of laboratory results Abnormal [facility] Potassium molar conc 4.7 mmol/L 3.5 - 5 .1 mmol/L [facility] Sodium molar conc 129 mmol/L Low 135 - 145 mmol/L [facility] Urea nitrogen mass conc 12 mg/dL 8 - 25 mg/dL [facility] Urea nitrogen/Creatinine mass ratio 15.4 mg/mg [facility] CBCon 09-12-2018 Erythrocyte distribution width Entitic volume (RBC) 13.8 % 11.6 - 14.8 % [facility] Hematocrit Volume Fraction (Bld) 25.6 % Low 41 - 53 % [facility] Hemoglobin mass conc (Bld) 8.9 g/dL Low 13.5 - 17.5 g/dL [facility] Interpretation and review of laboratory results Abnormal [facility] MCH Entitic mass (RBC) 31.4 pg 26 - 34 pg [facility] MCHC mass conc (RBC) 34.8 g/dL 31 - 37 g/dL [facility] Comment on above: Cold Agglutinin pres ent MCV Entitic volume (RBC) 90.5 fL 80 - 100 fL [facility] Nucleated RBC #/vol (Bld) 0.00 10*3/uL [facility] Nucleated RBC/100 WBC Ratio (Bld) 0.0 % [facility] Platelet mean volume Entitic volume (Bld) 10.0 fL 9 - 15.5 fL [facility] Platelets #/vol (Bld) 272 10*3/uL [facility] RBC #/vol (Bld) 2.83 10*6/uL Low [facility] WBC #/vol (Bld) 10.20 10*3/uL [facility] alth While on heparin [facility] Erythrocyte distribution width Entitic volume (RBC) 14.1 % 11.6 - 14.8 % [facility] Hematocrit Volume Fraction (Bld) 24.2 % Low 41 - 53 % [facility] Hemoglobin mass conc (Bld) 8.2 g/dL Low 13.5 - 17.5 g/dL [facility] Interpretation and review of laboratory results Abnormal [facility] MCH Entitic mass (RBC) 30.5 pg 26 - 34 pg [facility] MCHC mass conc (RBC) 33.9 g/dL 31 - 37 g/dL [facility] Comment on above: Cold Agglutinin pres ent MCV Entitic volume (RBC) 90.0 fL 80 - 100 fL [facility] Nucleated RBC #/vol (Bld) 0.00 10*3/uL [facility] Nucleated RBC/100 WBC Ratio (Bld) 0.0 % [facility] Platelet mean volume Entitic volume (Bld) 9.8 fL 9 - 15.5 fL [facility] Platelets #/vol (Bld) 246 10*3/uL [facility] RBC #/vol (Bld) 2.69 10*6/uL Low [facility] WBC #/vol (Bld) 9.04 10*3/uL [facility] Hemoglobin and Hematocriton 09-12-2018 Hematocrit Volume Fraction (Bld) 20.5 % Low 41 - 53 % [facility] Hemoglobin mass conc (Bld) 8.1 g/dL Low 13.5 - 17.5 g/dL [facility] Comment on above: Peripheral smear rev iewed manually Interpretation and review of laboratory results Abnormal [facility] PT/INRon 09-12-2018 INR Coag RelTime (PPP) 1.2 {INR} [facility] Interpretation and review of laboratory results Abnormal [facility] Prothrombin time (PT) Coag time (PPP) 14.6 s [facility] During the induction phase of oral anticoagulation, the INR may not reflect the anticoagulation status of the patient. Therapeutic ranges for INR's are: Most clinical situations: INR 2.0-3.0 Mechanical Prosthetic Valve: INR 2.5-3.5 Critical: INR >5.0 [facility] Basic Metabolic Panelon 08-28 Anion gap molar conc 15 mmol/L 10 - 20 mmol/L [facility] Calcium mass conc 8.9 mg/dL 8.4 - 10.2 mg/dL [facility] Chloride molar conc 95 mmol/L Low 98 - 108 mmol/L [facility] Creatinine mass conc 0.65 mg/dL Low 0.8 - 1 .3 mg/dL [facility] GFR/1.73 sq M predicted among non-blacks MDRD vol rate/area (S/P/Bld) The eGFR should be used for monitoring renal function only and not for medication dosing. [facility] GFR/1.73 sq M.predicted CKD-EPI vol rate/area (S/P/Bld) 93 >=60 mL/min/1.73 m2 [facility] Glucose mass conc 114 mg/dL High 65 - 99 mg/dL [facility] HCO3 molar conc 26 mmol/L 21 - 32 mmol/L [facility] Interpretation and review of laboratory results Abnormal [facility] Potassium molar conc 4.8 mmol/L 3.5 - 5 .1 mmol/L [facility] Comment on above: Slightly Hemolyzed Sodium molar conc 131 mmol/L Low 135 - 145 mmol/L [facility] Urea nitrogen mass conc 11 mg/dL 8 - 25 mg/dL [facility] Urea nitrogen/Creatinine mass ratio 16.9 mg/mg [facility] CBCon 09-11-2018 Erythrocyte distribution width Entitic volume (RBC) 13.3 % 11.6 - 14.8 % [facility] Hematocrit Volume Fraction (Bld) 24.4 % Low 41 - 53 % [facility] Hemoglobin mass conc (Bld) 8.1 g/dL Low 13.5 - 17.5 g/dL [facility] Interpretation and review of laboratory results Abnormal [facility] MCH Entitic mass (RBC) 30.5 pg 26 - 34 pg [facility] MCHC mass conc (RBC) 33.2 g/dL 31 - 37 g/dL [facility] Comment on above: Cold Agglutinin pres ent MCV Entitic volume (RBC) 91.7 fL 80 - 100 fL [facility] Nucleated RBC #/vol (Bld) 0.00 10*3/uL [facility] Nucleated RBC/100 WBC Ratio (Bld) 0.0 % [facility] Platelet mean volume Entitic volume (Bld) 9.8 fL 9 - 15.5 fL [facility] Platelets #/vol (Bld) 249 10*3/uL [facility] RBC #/vol (Bld) 2.66 10*6/uL Low [facility] WBC #/vol (Bld) 7.28 10*3/uL [facility] PREPARE RBCon 09-11-2018 ABO and Rh group Nom (Bld) O Pos [facility] ABO and Rh group Nom (Bld) 5100 [facility] Cross Match Compatible [facility] Protein mass conc Red Blood Cells [facility] Protein mass conc [id number] [facility] Status Info Transfused [facility] Unit Number [id number] [facility] PT/INRon 09-11-2018 INR Coag RelTime (PPP) 1.2 {INR} High [facility] Interpretation and review of laboratory results Abnormal [facility] Prothrombin time (PT) Coag time (PPP) 14.7 s High [facility] During the induction phase of oral anticoagulation, the INR may not reflect the anticoagulation status of the patient. Therapeutic ranges for INR's are: Most clinical situations: INR 2.0-3.0 Mechanical Prosthetic Valve: INR 2.5-3.5 Critical: INR >5.0 [facility] Type and Screenon 09-11-2018 ABO and Rh group Nom (Bld) O Positive [facility] Blood group antibody screen Ql Negative [facility] Specimen Expires 09/14/2018 23:59 EST [facility] Basic Metabolic Panelon 08-28 Anion gap molar conc 13 mmol/L 10 - 20 mmol/L [facility] Calcium mass conc 8.9 mg/dL 8.4 - 10.2 mg/dL [facility] Chloride molar conc 99 mmol/L 98 - 108 mmol/L [facility] Creatinine mass conc 0.67 mg/dL Low 0.8 - 1 .3 mg/dL [facility] GFR/1.73 sq M predicted among non-blacks MDRD vol rate/area (S/P/Bld) The eGFR should be used for monitoring renal function only and not for medication dosing. [facility] GFR/1.73 sq M.predicted CKD-EPI vol rate/area (S/P/Bld) 91 >=60 mL/min/1.73 m2 [facility] Glucose mass conc 116 mg/dL High 65 - 99 mg/dL [facility] HCO3 molar conc 27 mmol/L 21 - 32 mmol/L [facility] Interpretation and review of laboratory results Abnormal [facility] Potassium molar conc 4.6 mmol/L 3.5 - 5 .1 mmol/L [facility] Sodium molar conc 134 mmol/L Low 135 - 145 mmol/L [facility] Urea nitrogen mass conc 12 mg/dL 8 - 25 mg/dL [facility] Urea nitrogen/Creatinine mass ratio 17.9 mg/mg [facility] CBCon 09-10-2018 Erythrocyte distribution width Entitic volume (RBC) 13.2 % 11.6 - 14.8 % [facility] Hematocrit Volume Fraction (Bld) 22.2 % Low 41 - 53 % [facility] Hemoglobin mass conc (Bld) 7.6 g/dL Low 13.5 - 17.5 g/dL [facility] Interpretation and review of laboratory results Abnormal [facility] MCH Entitic mass (RBC) 32.5 pg 26 - 34 pg [facility] MCHC mass conc (RBC) 34.2 g/dL 31 - 37 g/dL [facility] MCV Entitic volume (RBC) 94.9 fL 80 - 100 fL [facility] Nucleated RBC #/vol (Bld) 0.00 10*3/uL [facility] Nucleated RBC/100 WBC Ratio (Bld) 0.0 % [facility] Platelet mean volume Entitic volume (Bld) 9.3 fL 9 - 15.5 fL [facility] Platelets #/vol (Bld) 246 10*3/uL [facility] RBC #/vol (Bld) 2.34 10*6/uL Low [facility] WBC #/vol (Bld) 7.13 10*3/uL [facility] While on heparin [facility] Erythrocyte distribution width Entitic volume (RBC) 13.2 % 11.6 - 14.8 % [facility] Hematocrit Volume Fraction (Bld) 22.0 % Low 41 - 53 % [facility] Hemoglobin mass conc (Bld) 7.5 g/dL Low 13.5 - 17.5 g/dL [facility] Interpretation and review of laboratory results Abnormal [facility] MCH Entitic mass (RBC) 32.1 pg 26 - 34 pg [facility] MCHC mass conc (RBC) 34.1 g/dL 31 - 37 g/dL [facility] MCV Entitic volume (RBC) 94.0 fL 80 - 100 fL [facility] Nucleated RBC #/vol (Bld) 0.00 10*3/uL [facility] Nucleated RBC/100 WBC Ratio (Bld) 0.0 % [facility] Platelet mean volume Entitic volume (Bld) 9.2 fL 9 - 15.5 fL [facility] Platelets #/vol (Bld) 234 10*3/uL [facility] RBC #/vol (Bld) 2.34 10*6/uL Low [facility] WBC #/vol (Bld) 7.34 10*3/uL [facility] EKGon 09-10-2018 Ordered by an unspecified provider. [facility] PT/INRon 09-10-2018 INR Coag RelTime (PPP) 1.2 {INR} High [facility] Interpretation and review of laboratory results Abnormal [facility] Prothrombin time (PT) Coag time (PPP) 14.4 s High [facility] During the induction phase of oral anticoagulation, the INR may not reflect the anticoagulation status of the patient. Therapeutic ranges for INR's are: Most clinical situations: INR 2.0-3.0 Mechanical Prosthetic Valve: INR 2.5-3.5 Critical: INR >5.0 [facility] US Doppler ankle/brachial in dexon 09-10-2018 Non-Invasive Vascula r ____ Patient: SHERRY Bazan [facility] Rec#: [id number] (Age): 1940(78y) Study Date: 09/10/2018 Room#: 8506 Type: Inpatient Sex: M ____ Reading: [place] Reading: Ben Hahn MD, RPVI Referring: Esau Alejandro Slinger Sequins: Andre Madrid RDCS/INOCENCIO Procedure Info: [id number] Study Quality: Lower Arterial Doppler: adequate ____ Diagnosis: I73.9 Peripheral vascular disease, unspecified Lower Arterial Doppler ____ Conclusions Right ankle brachial index indicates moderate peripheral artery disease. Toe pressure is 52 mmHg. Left ankle brachial index indicates mild peripheral artery disease. Toe pressure is 0 mmHg. No evidence of small vessel disease noted at the transmetatarsal level in the right foot. Toe brachial index is abnormal. Moderate small vessel disease noted at the transmetatarsal level in the left foot. Toe brachial index is abnormal. ____ The procedure was explained to the patient. The patient voiced understanding. Finding Grids Lower PVR Waveforms Right Left Ankle B B Transmet N B Harper --------- B = Abnormal N = Normal Toe PPG Waveforms Right Left 1st Digit N A Harper --------- N = Normal A = Absent Measurements Right Pressures/Ratios Name Value Units Brachial 154 mmHg Ankle (Posterior Tibial) 96 mmHg Ankle (Dorsalis Pedis) 93 mmHg Toe 52 mmHg YAMILE 0.62 ratio TBI 0.34 ratio Left Pressures/Ratios Name Value Units Brachial 150 mmHg Ankle (Posterior Tibial) 75 mmHg Ankle (Dorsalis Pedis) 116 mmHg Toe 0 mmHg YAMILE 0.75 ratio TBI 0 ratio History CAD. Hypertension. PAD. Electronically signed at 09/10/2018 17:30:46 by: Ben Hahn MD, RPVI [facility] Interface, Rad In [facility] Xper Echopacs - 09/10/2018 5:37 PM EST Non-Invasive Vascular ____ Patient: SHERRY Jones Rec#: [id number] (Age): 1940(78y) Study Date: 09/10/2018 Room#: 8506 Type: Inpatient Sex: M ____ Reading: [place] Reading: Ben Hahn MD, RPVI Referring: Esau Alejandro Slinger Sequins: Andre Madrid RDCS/INOCENCIO Procedure Info: [id number] Study Quality: Lower Arterial Doppler: adequate ____ Diagnosis: I73.9 Peripheral vascular disease, unspecified Lower Arterial Doppler ____ Conclusions Right ankle brachial index indicates moderate peripheral artery disease. Toe pressure is 52 mmHg. Left ankle brachial index indicates mild peripheral artery disease. Toe pressure is 0 mmHg. No evidence of small vessel disease noted at the transmetatarsal level in the right foot. Toe brachial index is abnormal. Moderate small vessel disease noted at the transmetatarsal level in the left foot. Toe brachial index is abnormal. ____ The procedure was explained to the patient. The patient voiced understanding. Finding Grids Lower PVR Waveforms Right Left Ankle B B Transmet N B Harper --------- B = Abnormal N = Normal Toe PPG Waveforms Right Left 1st Digit N A Harper --------- N = Normal A = Absent Measurements Right Pressures/Ratios Name Value Units Brachial 154 mmHg Ankle (Posterior Tibial) 96 mmHg Ankle (Dorsalis Pedis) 93 mmHg Toe 52 mmHg YAMILE 0.62 ratio TBI 0.34 ratio Left Pressures/Ratios Name Value Units Brachial 150 mmHg Ankle (Posterior Tibial) 75 mmHg Ankle (Dorsalis Pedis) 116 mmHg Toe 0 mmHg YAMILE 0.75 ratio TBI 0 ratio History CAD. Hypertension. PAD. Electronically signed at 09/10/2018 17:30:46 by: Ben Hahn MD, RPVI [facility] Basic Metabolic Panelon 08-28 Anion gap molar conc 12 mmol/L 10 - 20 mmol/L [facility] Calcium mass conc 8.9 mg/dL 8.4 - 10.2 mg/dL [facility] Chloride molar conc 99 mmol/L 98 - 108 mmol/L [facility] Creatinine mass conc 0.71 mg/dL Low 0.8 - 1 .3 mg/dL [facility] GFR/1.73 sq M predicted among non-blacks MDRD vol rate/area (S/P/Bld) The eGFR should be used for monitoring renal function only and not for medication dosing. [facility] GFR/1.73 sq M.predicted CKD-EPI vol rate/area (S/P/Bld) 89 >=60 mL/min/1.73 m2 [facility] Glucose mass conc 111 mg/dL High 65 - 99 mg/dL [facility] HCO3 molar conc 28 mmol/L 21 - 32 mmol/L [facility] Interpretation and review of laboratory results Abnormal [facility] Potassium molar conc 4.3 mmol/L 3.5 - 5 .1 mmol/L [facility] Sodium molar conc 135 mmol/L 135 - 145 mmol/L [facility] Urea nitrogen mass conc 13 mg/dL 8 - 25 mg/dL [facility] Urea nitrogen/Creatinine mass ratio 18.3 mg/mg [facility] CBCon 09-09-2018 Erythrocyte distribution width Entitic volume (RBC) 13.2 % 11.6 - 14.8 % [facility] Hematocrit Volume Fraction (Bld) 23.0 % Low 41 - 53 % [facility] Hemoglobin mass conc (Bld) 7.7 g/dL Low 13.5 - 17.5 g/dL [facility] Comment on above: Cold Agglutinin pres ent Interpretation and review of laboratory results Abnormal [facility] MCH Entitic mass (RBC) 30.4 pg 26 - 34 pg [facility] MCHC mass conc (RBC) 33.5 g/dL 31 - 37 g/dL [facility] MCV Entitic volume (RBC) 90.9 fL 80 - 100 fL [facility] Nucleated RBC #/vol (Bld) 0.00 10*3/uL [facility] Nucleated RBC/100 WBC Ratio (Bld) 0.0 % [facility] Platelet mean volume Entitic volume (Bld) 9.4 fL 9 - 15.5 fL [facility] Platelets #/vol (Bld) 207 10*3/uL [facility] RBC #/vol (Bld) 2.53 10*6/uL Low [facility] WBC #/vol (Bld) 6.48 10*3/uL [facility] Hemoglobin and Hematocriton 09-09-2018 Hematocrit Volume Fraction (Bld) 22.8 % Low 41 - 53 % [facility] Hemoglobin mass conc (Bld) 8.0 g/dL Low 13.5 - 17.5 g/dL [facility] Interpretation and review of laboratory results Abnormal [facility] Hematocrit Volume Fraction (Bld) 22.9 % Low 41 - 53 % [facility] Hemoglobin mass conc (Bld) 7.7 g/dL Low 13.5 - 17.5 g/dL [facility] Interpretation and review of laboratory results Abnormal [facility] PT/INRon 09-09-2018 INR Coag RelTime (PPP) 1.2 {INR} High [facility] Interpretation and review of laboratory results Abnormal [facility] Prothrombin time (PT) Coag time (PPP) 15.1 s [facility] During the induction phase of oral anticoagulation, the INR may not reflect the anticoagulation status of the patient. Therapeutic ranges for INR's are: Most clinical situations: INR 2.0-3.0 Mechanical Prosthetic Valve: INR 2.5-3.5 Critical: INR >5.0 [facility] Basic Metabolic Panelon 08-28 Anion gap molar conc 16 mmol/L 10 - 20 mmol/L [facility] Calcium mass conc 9.0 mg/dL 8.4 - 10.2 mg/dL [facility] Chloride molar conc 99 mmol/L 98 - 108 mmol/L [facility] Creatinine mass conc 0.56 mg/dL Low 0.8 - 1 .3 mg/dL [facility] GFR/1.73 sq M predicted among non-blacks MDRD vol rate/area (S/P/Bld) The eGFR should be used for monitoring renal function only and not for medication dosing. [facility] GFR/1.73 sq M.predicted CKD-EPI vol rate/area (S/P/Bld) 98 >=60 mL/min/1.73 m2 [facility] Glucose mass conc 189 mg/dL High 65 - 99 mg/dL [facility] HCO3 molar conc 23 mmol/L 21 - 32 mmol/L [facility] Interpretation and review of laboratory results Abnormal [facility] Potassium molar conc 4.5 mmol/L 3.5 - 5 .1 mmol/L [facility] Sodium molar conc 133 mmol/L Low 135 - 145 mmol/L [facility] Urea nitrogen mass conc 8 mg/dL 8 - 25 mg/dL [facility] Urea nitrogen/Creatinine mass ratio 14.3 mg/mg [facility] CBCon 09-08-2018 Erythrocyte distribution width Entitic volume (RBC) 12.9 % 11.6 - 14.8 % [facility] Hematocrit Volume Fraction (Bld) 29.9 % Low 41 - 53 % [facility] Hemoglobin mass conc (Bld) 10.0 g/dL Low 13.5 - 17.5 g/dL [facility] Interpretation and review of laboratory results Abnormal [facility] MCH Entitic mass (RBC) 30.3 pg 26 - 34 pg [facility] MCHC mass conc (RBC) 33.4 g/dL 31 - 37 g/dL [facility] Comment on above: Cold Agglutinin pres ent MCV Entitic volume (RBC) 90.6 fL 80 - 100 fL [facility] Nucleated RBC #/vol (Bld) 0.00 10*3/uL [facility] Nucleated RBC/100 WBC Ratio (Bld) 0.0 % [facility] Platelet mean volume Entitic volume (Bld) 10.5 fL 9 - 15.5 fL [facility] Platelets #/vol (Bld) 209 10*3/uL [facility] RBC #/vol (Bld) 3.30 10*6/uL [facility] #/vol (Bld) 11.23 10*3/uL High [facility] alth PT/INRon 09-08-2018 INR Coag RelTime (PPP) 1.2 {INR} [facility] Interpretation and review of laboratory results Abnormal [facility] Prothrombin time (PT) Coag time (PPP) 14.9 s [facility] During the induction phase of oral anticoagulation, the INR may not reflect the anticoagulation status of the patient. Therapeutic ranges for INR's are: Most clinical situations: INR 2.0-3.0 Mechanical Prosthetic Valve: INR 2.5-3.5 Critical: INR >5.0 [facility] XR Fluoroscopy Timeon 2018 This is an auto finalized result. Please refer to patient chart for further information. [facility] XR OR Angio Addon 09-08-2018 This is an auto finalized result. Please refer to patient chart for further information. [facility] APTTon 09-07-2018 aPTT Coag time (Bld) 74 s [facility] aPTT Coag time (Bld) Therapeutic range f or APTT's is 68 - 104 seconds [facility] Interpretation and review of laboratory results Abnormal [facility] aPTT Coag time (Bld) 47 s [facility] aPTT Coag time (Bld) Therapeutic range f or APTT's is 68 - 104 seconds [facility] aPTT Coag time (Bld) 38 s [facility] aPTT Coag time (Bld) Results checked. Therapeutic range for APTT's is 68 - 104 seconds [facility] Interpretation and review of laboratory results Abnormal [facility] Basic Metabolic Panelon 08-28 Anion gap molar conc 15 mmol/L 10 - 20 mmol/L [facility] Calcium mass conc 9.4 mg/dL 8.4 - 10.2 mg/dL [facility] Chloride molar conc 99 mmol/L 98 - 108 mmol/L [facility] Creatinine mass conc 0.69 mg/dL Low 0.8 - 1 .3 mg/dL [facility] GFR/1.73 sq M predicted among non-blacks MDRD vol rate/area (S/P/Bld) The eGFR should be used for monitoring renal function only and not for medication dosing. [facility] GFR/1.73 sq M.predicted CKD-EPI vol rate/area (S/P/Bld) 90 >=60 mL/min/1.73 m2 [facility] Glucose mass conc 110 mg/dL High 65 - 99 mg/dL [facility] HCO3 molar conc 25 mmol/L 21 - 32 mmol/L [facility] Interpretation and review of laboratory results Abnormal [facility] Potassium molar conc 4.0 mmol/L 3.5 - 5 .1 mmol/L [facility] Sodium molar conc 135 mmol/L 135 - 145 mmol/L [facility] Urea nitrogen mass conc 9 mg/dL 8 - 25 mg/dL [facility] Urea nitrogen/Creatinine mass ratio 13.0 mg/mg [facility] CBCon 09-07-2018 Erythrocyte distribution width Entitic volume (RBC) 12.9 % 11.6 - 14.8 % [facility] Hematocrit Volume Fraction (Bld) 31.6 % Low 41 - 53 % [facility] Hemoglobin mass conc (Bld) 10.8 g/dL Low 13.5 - 17.5 g/dL [facility] Interpretation and review of laboratory results Abnormal [facility] MCH Entitic mass (RBC) 30.9 pg 26 - 34 pg [facility] MCHC mass conc (RBC) 34.2 g/dL 31 - 37 g/dL [facility] Comment on above: Cold Agglutinin pres ent MCV Entitic volume (RBC) 90.3 fL 80 - 100 fL [facility] Nucleated RBC #/vol (Bld) 0.00 10*3/uL [facility] Nucleated RBC/100 WBC Ratio (Bld) 0.0 % [facility] Platelet mean volume Entitic volume (Bld) 10.1 fL 9 - 15.5 fL [facility] Platelets #/vol (Bld) 212 10*3/uL [facility] RBC #/vol (Bld) 3.50 10*6/uL Low [facility] WBC #/vol (Bld) 5.93 10*3/uL [facility] Otheron 09-07-2018 Interpretation and review of laboratory results Abnormal [facility] PT/INRon 09-07-2018 INR Coag RelTime (PPP) 1.2 {INR} [facility] Prothrombin time (PT) Coag time (PPP) 14.7 s [facility] During the induction phase of oral anticoagulation, the INR may not reflect the anticoagulation status of the patient. Therapeutic ranges for INR's are: Most clinical situations: INR 2.0-3.0 Mechanical Prosthetic Valve: INR 2.5-3.5 Critical: INR >5.0 [facility] XR Chest 1 Viewon 09-07-2018 Interface, Rad In Baljit garcia Speechq - 09/07/2018 9:53 AM EST EXAMINATION: AP CHEST HISTORY: Hypoxia. COMPARISON: 08/01/2018 from [facility]. 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 Coronary artery stents are visualized. Minimal linear scarring at the lung bases, unchanged. No pneumothorax. No definite pleural effusion no new opacities. IMPRESSION: Stable chest. No acute disease. [employer] Workstation ID: [id number] [facility] EXAMINATION: AP CHES T HISTORY: Hypoxia. COMPARISON: 08/01/2018 from [facility]. 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 Coronary artery stents are visualized. Minimal linear scarring at the lung bases, unchanged. No pneumothorax. No definite pleural effusion no new opacities. [facility] Stable chest. No acu te disease. [employer] Workstation ID: [id number] [facility] ABORH VERIFICATIONon 019 ABO and Rh group Nom (Bld) O Positive [facility] ABO and Rh group Nom (Bld) ABO/Rh Verification [facility] Patient's ABO/Rh is verified. [facility] Basic Metabolic Panelon 08-28 Anion gap molar conc 13 mmol/L 10 - 20 mmol/L [facility] Calcium mass conc 9.5 mg/dL 8.4 - 10.2 mg/dL [facility] Chloride molar conc 101 mmol/L 98 - 108 mmol/L [facility] Creatinine mass conc 0.68 mg/dL Low 0.8 - 1 .3 mg/dL [facility] GFR/1.73 sq M predicted among non-blacks MDRD vol rate/area (S/P/Bld) The eGFR should be used for monitoring renal function only and not for medication dosing. [facility] GFR/1.73 sq M.predicted CKD-EPI vol rate/area (S/P/Bld) 91 >=60 mL/min/1.73 m2 [facility] Glucose mass conc 98 mg/dL 65 - 99 mg/dL [facility] HCO3 molar conc 27 mmol/L 21 - 32 mmol/L [facility] Interpretation and review of laboratory results Abnormal [facility] Potassium molar conc 4.2 mmol/L 3.5 - 5 .1 mmol/L [facility] Sodium molar conc 137 mmol/L 135 - 145 mmol/L [facility] Urea nitrogen mass conc 9 mg/dL 8 - 25 mg/dL [facility] Urea nitrogen/Creatinine mass ratio 13.2 mg/mg [facility] CBCon 09-06-2018 Erythrocyte distribution width Entitic volume (RBC) 13.1 % 11.6 - 14.8 % [facility] Hematocrit Volume Fraction (Bld) 30.7 % Low 41 - 53 % [facility] Hemoglobin mass conc (Bld) 10.4 g/dL Low 13.5 - 17.5 g/dL [facility] Interpretation and review of laboratory results Abnormal [facility] MCH Entitic mass (RBC) 31.0 pg 26 - 34 pg [facility] MCHC mass conc (RBC) 33.9 g/dL 31 - 37 g/dL [facility] Comment on above: Cold Agglutinin pres ent MCV Entitic volume (RBC) 91.6 fL 80 - 100 fL [facility] Nucleated RBC #/vol (Bld) 0.00 10*3/uL [facility] Nucleated RBC/100 WBC Ratio (Bld) 0.0 % [facility] Platelet mean volume Entitic volume (Bld) 9.9 fL 9 - 15.5 fL [facility] Platelets #/vol (Bld) 209 10*3/uL [facility] RBC #/vol (Bld) 3.35 10*6/uL Low [facility] WBC #/vol (Bld) 6.34 10*3/uL [facility] While on heparin [facility] Erythrocyte distribution width Entitic volume (RBC) 12.6 % 11.6 - 14.8 % [facility] Hematocrit Volume Fraction (Bld) 32.0 % Low 41 - 53 % [facility] Hemoglobin mass conc (Bld) 10.7 g/dL Low 13.5 - 17.5 g/dL [facility] Comment on above: Peripheral smear rev iewed manually Interpretation and review of laboratory results Abnormal [facility] MCH Entitic mass (RBC) 29.9 pg 26 - 34 pg [facility] MCHC mass conc (RBC) 33.4 g/dL 31 - 37 g/dL [facility] Comment on above: Cold Agglutinin pres ent MCV Entitic volume (RBC) 89.4 fL 80 - 100 fL [facility] Nucleated RBC #/vol (Bld) 0.00 10*3/uL [facility] Nucleated RBC/100 WBC Ratio (Bld) 0.0 % [facility] Platelet mean volume Entitic volume (Bld) 9.6 fL 9 - 15.5 fL [facility] Platelets #/vol (Bld) 232 10*3/uL [facility] RBC #/vol (Bld) 3.58 10*6/uL Low [facility] WBC #/vol (Bld) 7.03 10*3/uL [facility] Saphenous vein mapping, chace thayer 09-06-2018 Interface, Rad In [facility] Xper Echopacs - 09/06/2018 11:52 AM EST Non-Invasive Vascular ____ Patient: SHERRY Bazan [facility] Rec#: [id number] (Age): 1940(78y) Study Date: 09/06/2018 Room#: 3386 Type: Inpatient Sex: M ____ Reading: Manuel Leonard MD, RPLUIZA, RVT Referring: ARISTEO Slinger Sequins: Conrad Jeffers RDCS, RVT Procedure Info: [id number] Study Quality: Lower Vein Map: limited Study Limitations: Lower Vein Map: The exam was technically difficult due to patient positioning. ____ Diagnosis: I73.9 Peripheral vascular disease, unspecified Lower Vein Map ____ Conclusions Patent and compressible great saphenous (GSV) vein bilaterally with measurements listed below. The left GSV from the proximal thigh to knee was previously harvested for CABG. ____ The procedure was explained to the patient. The patient voiced understanding. Measurements R Vein Measurements Name Value Units GSV Thigh - prox 4 mm GSV Thigh - mid 3.5 mm GSV Thigh - dist 5.6 mm GSV at Knee 5.7 mm GSV Calf - prox 4.8 mm GSV Calf - mid 3.3 mm GSV Calf - dist 3.6 mm GSV at Ankle 3.7 mm L Vein Measurements Name Value Units GSV Calf - prox 1.8 mm GSV Calf - mid 1.8 mm GSV Calf - dist 2.3 mm GSV at Ankle 1.5 mm Electronically signed at 09/06/2018 11:49:41 by: Manuel Leonard MD, INOCENCIO SANTOYO [facility] Non-Invasive Vascula r ____ Patient: SHERRY Bazan [facility] Rec#: [id number] (Age): 1940(78y) Study Date: 09/06/2018 Room#: 3386 Type: Inpatient Sex: M ____ Reading: Manuel Leonard MD, NATANAEL, RVT Referring: ARISTEO Slinger Sequins: Conrad Jeffers RDCS, RVT Procedure Info: [id number] Study Quality: Lower Vein Map: limited Study Limitations: Lower Vein Map: The exam was technically difficult due to patient positioning. ____ Diagnosis: I73.9 Peripheral vascular disease, unspecified Lower Vein Map ____ Conclusions Patent and compressible great saphenous (GSV) vein bilaterally with measurements listed below. The left GSV from the proximal thigh to knee was previously harvested for CABG. ____ The procedure was explained to the patient. The patient voiced understanding. Measurements R Vein Measurements Name Value Units GSV Thigh - prox 4 mm GSV Thigh - mid 3.5 mm GSV Thigh - dist 5.6 mm GSV at Knee 5.7 mm GSV Calf - prox 4.8 mm GSV Calf - mid 3.3 mm GSV Calf - dist 3.6 mm GSV at Ankle 3.7 mm L Vein Measurements Name Value Units GSV Calf - prox 1.8 mm GSV Calf - mid 1.8 mm GSV Calf - dist 2.3 mm GSV at Ankle 1.5 mm Electronically signed at 09/06/2018 11:49:41 by: Manuel Leonard MD, NATANAEL, RVT [facility] Type and Screenon 09-06-2018 ABO and Rh group Nom (Bld) O Positive [facility] Blood group antibody screen Ql Negative [facility] Specimen Expires 09/09/2018 23:59 EST [facility] APTTon 09-05-2018 aPTT Coag time (Bld) Therapeutic range f or APTT's is 68 - 104 seconds [facility] aPTT Coag time (Bld) 59 s High [facility] Interpretation and review of laboratory results Abnormal [facility] aPTT Coag time (Bld) 50 s High [facility] aPTT Coag time (Bld) Therapeutic range f or APTT's is 68 - 104 seconds [facility] Basic Metabolic Panelon Anion gap molar conc 14 mmol/L 10 - 20 mmol/L [facility] Calcium mass conc 9.3 mg/dL 8.4 - 10.2 mg/dL [facility] Chloride molar conc 102 mmol/L 98 - 108 mmol/L [facility] Creatinine mass conc 0.65 mg/dL Low 0.8 - 1 .3 mg/dL [facility] GFR/1.73 sq M predicted among non-blacks MDRD vol rate/area (S/P/Bld) The eGFR should be used for monitoring renal function only and not for medication dosing. [facility] GFR/1.73 sq M.predicted CKD-EPI vol rate/area (S/P/Bld) 93 >=60 mL/min/1.73 m2 [facility] Glucose mass conc 91 mg/dL 65 - 99 mg/dL [facility] HCO3 molar conc 25 mmol/L 21 - 32 mmol/L [facility] Potassium molar conc 3.9 mmol/L 3.5 - 5 .1 mmol/L [facility] Sodium molar conc 137 mmol/L 135 - 145 mmol/L [facility] Urea nitrogen mass conc 6 mg/dL Low 8 - 25 mg/dL [facility] Urea nitrogen/Creatinine mass ratio 9.2 mg/mg Low [facility] CARDIAC CATHETERIZATIONon Interface, Rad In [facility] Xper Echopacs - 09/05/2018 4:14 PM EST Patient Name: TRISTIN POWELL Date of : 1940 Procedure Date: 09/05/2018 Physician(s): Ben Hahn MD Cath #: [id number] Ref. Physician: PROCEDURE(S) PERFORMED: Ultrasound- guided vascular access Aortogram: Abdominal with runoff-bilateral Peripheral Angiography Lower Extremity Angiogram - Left Clinical History: Prior CABG: Yes Peripheral Arterial Disease: Yes, , with prior peripheral CMO & PRESIDENT. Dyslipidemia: Yes Hypertension: Yes Pre-OP Diagnosis/Indication: Atkinson Class/Limb Ischemia: 4 - Ischemic rest pain ASA status unchanged immediately prior to sedation administration. Heart, lungs, and airway assessed prior to sedation. The risks, benefits, and side effects related to alternative treatment options and the risks related to not receiving the proposed interventions and care were discussed with the patient. Following informed consent, the patient was brought to the procedure room in the fasting state. bilateral groins was prepped and draped in a sterile fashion. Local anesthesia was attained with 2% Lidocaine to the Right groin region. Using standard technique, sheath(s) were placed in the following site(s): exchanged into the right femoral artery - 6F 45cm Flexor Aashish 1 Sheath Catheters were advanced using standard guide wire technique. Multiple angiographic pictures were taken and appropriate pressures obtained. Hemodynamics: Time AIR REST AO 142/52 (86) SA 14:36:59 After review of the angiography and assurance of the patient's stability, the catheter was withdrawn from the sheath and Closure device placed by - Dr. 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 No reasonable endovascular options. PERIPHERAL RECOMMENDATIONS: Surgical procedure - tibial bypass vs major amputation COMMENTS: No Complications ____ Equipment: Sheath(s) [facility] 5F 10CM PINNACLE SHEATH Monitoring Division 6F 45CM .038 FLEXOR CHECKFLO ANSEL1 SHEATH Wire(s) [employer] .035 X 150CM FIXED J WIRE Catheter(s) [employer] 5F MP TEMPO AQUA CATHETER Other [employer] MEDICAL .035 CXI ANGLED SUPPORT CATHETERS SHER VASCULAR 6F PROGLIDE CLOSURE Peripheral Angiography: Access site: Femoral Right Retrograde arterial with ultrasound guidance Non Selective: Aorta with ilio-fem runoff Selective: Tibioperoneal artery, retrograde - left See Nursing Notes for further details Signed By Ben Hahn MD On 09/05/2018 3:50:45 PM Ben Hahn MD ____ [facility] Patient Name: TRISTIN POWELL Date of : 1940 Procedure Date: 09/05/2018 Physician(s): Ben Hahn MD Cath #: [id number] Ref. Physician: PROCEDURE(S) PERFORMED: Ultrasound- guided vascular access Aortogram: Abdominal with runoff-bilateral Peripheral Angiography Lower Extremity Angiogram - Left Clinical History: Prior CABG: Yes Peripheral Arterial Disease: Yes, , with prior peripheral CMO & PRESIDENT. Dyslipidemia: Yes Hypertension: Yes Pre-OP Diagnosis/Indication: Deann Class/Limb Ischemia: 4 - Ischemic rest pain ASA status unchanged immediately prior to sedation administration. Heart, lungs, and airway assessed prior to sedation. The risks, benefits, and side effects related to alternative treatment options and the risks related to not receiving the proposed interventions and care were discussed with the patient. Following informed consent, the patient was brought to the procedure room in the fasting state. bilateral groins was prepped and draped in a sterile fashion. Local anesthesia was attained with 2% Lidocaine to the Right groin region. Using standard technique, sheath(s) were placed in the following site(s): exchanged into the right femoral artery - 6F 45cm Flexor Aashish 1 Sheath Catheters were advanced using standard guide wire technique. Multiple angiographic pictures were taken and appropriate pressures obtained. Hemodynamics: Time AIR REST AO 142/52 (86) SA 14:36:59 After review of the angiography and assurance of the patient's stability, the catheter was withdrawn from the sheath and Closure device placed by - Dr. 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 No reasonable endovascular options. PERIPHERAL RECOMMENDATIONS: Surgical procedure - tibial bypass vs major amputation COMMENTS: No Complications ____ Equipment: Sheath(s) [facility] 5F 10CM PINNACLE SHEATH Monitoring Division 6F 45CM .038 FLEXOR CHECKFLO ANSEL1 SHEATH Wire(s) [employer] .035 X 150CM FIXED J WIRE Catheter(s) [employer] 5F MP TEMPO AQUA CATHETER Other Monitoring Division .035 CXI ANGLED SUPPORT CATHETERS SHER VASCULAR 6F PROGLIDE CLOSURE Peripheral Angiography: Access site: Femoral Right Retrograde arterial with ultrasound guidance Non Selective: Aorta with ilio-fem runoff Selective: Tibioperoneal artery, retrograde - left See Nursing Notes for further details Signed By Ben Hahn MD On 09/05/2018 3:50:45 PM Ben Hahn MD ____ [facility] CBCon 09-05-2018 Erythrocyte distribution width Entitic volume (RBC) 12.8 % 11.6 - 14.8 % [facility] Hematocrit Volume Fraction (Bld) 31.8 % Low 41 - 53 % [facility] Hemoglobin mass conc (Bld) 10.7 g/dL Low 13.5 - 17.5 g/dL [facility] Interpretation and review of laboratory results Abnormal [facility] MCH Entitic mass (RBC) 30.5 pg 26 - 34 pg [facility] MCHC mass conc (RBC) 33.6 g/dL 31 - 37 g/dL [facility] MCV Entitic volume (RBC) 90.6 fL 80 - 100 fL [facility] Nucleated RBC #/vol (Bld) 0.00 10*3/uL [facility] Nucleated RBC/100 WBC Ratio (Bld) 0.0 % [facility] Platelet mean volume Entitic volume (Bld) 9.2 fL 9 - 15.5 fL [facility] Platelets #/vol (Bld) 224 10*3/uL [facility] RBC #/vol (Bld) 3.51 10*6/uL Low [facility] WBC #/vol (Bld) 5.56 10*3/uL [facility] ECG 12-LEADon 09-05-2018 Atrial Rate 88 BPM [facility] P [place] 48 degrees [facility] P-R Interval 134 ms [facility] Q-T Interval 392 ms [facility] QRS Duration 98 ms [facility] QTC Calculation (Bezet) 474 ms [facility] [place] 50 degrees [facility] T [place] 61 degrees [facility] Ventricular Rate 88 BPM [facility] Normal sinus rhythm Nonspecific ST and T wave abnormality Abnormal ECG Confirmed by CHAYO TIDWELL MD ([id number]) on 09/05/2018 7:19:56 PM [facility] Atrial Rate 94 BPM [facility] P [place] 0 degrees [facility] P-R Interval 166 ms [facility] Q-T Interval 386 ms [facility] QRS Duration 94 ms [facility] QTC Calculation (Bezet) 482 ms [facility] R [place] 41 degrees [facility] T [place] 46 degrees [facility] Ventricular Rate 94 BPM [facility] Normal sinus rhythm Prolonged QT Abnormal ECG Confirmed by CHAYO TIDWELL MD ([id number]) on 09/05/2018 6:55:30 PM [facility] Otheron 09-05-2018 Interpretation and review of laboratory results Abnormal [facility] Ultrasound duplex arterial l eg lefton 09-05-2018 Non-Invasive Vascula r ____ Patient: SHERRY TRISTIN Hortensia [facility] Rec#: [id number] (Age): 1940(78y) Study Date: 09/05/2018 Room#: G93 Type: Inpatient Sex: M ____ Reading: Pierce Moreau DO, NATANAEL Referring: LEVY Slinger Sequins: Rima Celestin RDCS, RVT Slinger Sequins: Deena Pelayo RDCS RVT Procedure Info: [id number] Study Quality: Lower Arterial Duplex: adequate ____ Diagnosis: I73.9 Peripheral vascular disease, unspecified Lower Arterial Duplex ____ Conclusions Occluded stent noted in the left distal superficial femoral artery and popliteal artery. 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 Unable to adequately image runoff vessels due to patient's movement and intolerance to exam. ____ Findings Left external iliac artery: calcific plaque present. Left common femoral artery: heterogenous plaque present. The procedure was explained to the patient. The patient voiced understanding. Measurements Left PSV Name Value Units EIA 83.2 cm/sec [employer] REVIEWER 95.6 cm/sec Profunda 85.5 cm/sec SFA - prox -25 cm/sec SFA - mid -67.2 cm/sec SFA - dist 58.2 cm/sec Popliteal - dist 0 cm/sec CMO & PRESIDENT 6.8 cm/sec Pre Stenosis #1 9.3 cm/sec Within Stenosis #1 67.2 cm/sec Distal Stenois #1 58.2 cm/sec Left Stent #1 Name Value Units Pre 58.2 cm/sec Orig/Prox 0 cm/sec Mid 0 cm/sec Dist 0 cm/sec Distal To 6.8 cm/sec Electronically signed at 09/05/2018 11:55:51 by: Pierce Moreau DO, RPVI [facility], Rad In [facility] Xper Echopacs - 09/05/2018 12:10 PM EST Non-Invasive Vascular ____ Patient: SHERRY Bazan [facility] Rec#: [id number] (Age): 1940(78y) Study Date: 09/05/2018 Room#: G93 Type: Inpatient Sex: M ____ Reading: Pierce Moreau DO RPVI Referring: LEVY Slinger Sequins: Rima Celestin RDCS, RVT Slinger Sequins: Deena Pelayo RDCS RVT Procedure Info: [id number] Study Quality: Lower Arterial Duplex: adequate ____ Diagnosis: I73.9 Peripheral vascular disease, unspecified Lower Arterial Duplex ____ Conclusions Occluded stent noted in the left distal superficial femoral artery and popliteal artery. 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 Unable to adequately image runoff vessels due to patient's movement and intolerance to exam. ____ Findings Left external iliac artery: calcific plaque present. Left common femoral artery: heterogenous plaque present. The procedure was explained to the patient. The patient voiced understanding. Measurements Left PSV Name Value Units EIA 83.2 cm/sec COMMERCIAL LOAN REVIEWER 95.6 cm/sec Profunda 85.5 cm/sec SFA - prox -25 cm/sec SFA - mid -67.2 cm/sec SFA - dist 58.2 cm/sec Popliteal - dist 0 cm/sec CMO & PRESIDENT 6.8 cm/sec Pre Stenosis #1 9.3 cm/sec Within Stenosis #1 67.2 cm/sec Distal Stenois #1 58.2 cm/sec Left Stent #1 Name Value Units Pre 58.2 cm/sec Orig/Prox 0 cm/sec Mid 0 cm/sec Dist 0 cm/sec Distal To 6.8 cm/sec Electronically signed at 09/05/2018 11:55:51 by: Piecre Moreau DO, RPVI [facility] APTTon 09-04-2018 aPTT Coag time (Bld) 59 s [facility] aPTT Coag time (Bld) Therapeutic range f or APTT's is 68 - 104 seconds [facility] Interpretation and review of laboratory results Abnormal [facility] CBCon 09-04-2018 Erythrocyte distribution width Entitic volume (RBC) 12.8 % 11.6 - 14.8 % [facility] Hematocrit Volume Fraction (Bld) 33.3 % Low 41 - 53 % [facility] Hemoglobin mass conc (Bld) 11.2 g/dL Low 13.5 - 17.5 g/dL [facility] Interpretation and review of laboratory results Abnormal [facility] MCH Entitic mass (RBC) 30.2 pg 26 - 34 pg [facility] MCHC mass conc (RBC) 33.6 g/dL 31 - 37 g/dL [facility] Comment on above: Cold Agglutinin pres ent MCV Entitic volume (RBC) 89.8 fL 80 - 100 fL [facility] Nucleated RBC #/vol (Bld) 0.00 10*3/uL [facility] Nucleated RBC/100 WBC Ratio (Bld) 0.0 % [facility] Platelet mean volume Entitic volume (Bld) 10.1 fL 9 - 15.5 fL [facility] Platelets #/vol (Bld) 222 10*3/uL [facility] Comment on above: Peripheral smear rev iewed manually RBC #/vol (Bld) 3.71 10*6/uL Low [facility] WBC #/vol (Bld) 6.36 10*3/uL [facility] Otheron 09-04-2018 Extra Tube Hold for add-ons. [facility] lt Comment on above: Auto resulted. XR COMPARISON IMPORTon 09-04 This order has been auto-finalized and does not contain a result. [facility] Vital Signs Date Time Vital Sign Value Performing Clinician Facility 04-14-2025 13:27-0400 Body height 188 cm Flash Lovelace MD Work Phone: [facility] 04-14-2025 13:27-0400 Body mass index (BMI) [Ratio] 30.94 kg/m2 Flash Lovelace MD Work Phone: [facility] 04-14-2025 13:27-0400 Body weight 109.32 kg Flash Lovelace MD Work Phone: [facility] 04-14-2025 13:27-0400 Diastolic blood pressure 62 mm[Hg] Flash Lovelace MD Work Phone: [facility] 04-14-2025 13:27-0400 Heart rate 70 /min Flash Lovelace MD Work Phone: [facility] 04-14-2025 13:27-0400 SaO2% (BldA) [Mass fraction] 96 % Flash Lovelace MD Work Phone: [facility] 04-14-2025 13:27-0400 Systolic blood pressure 132 mm[Hg] Flash Lovelace MD Work Phone: [facility] 04-08-2025 11:29-0400 Body height 188 cm Zoë BROWER Work Phone: [facility] 04-08-2025 11:29-0400 Body mass index (BMI) [Ratio] 31.35 kg/m2 Zoë BROWER Work Phone: [facility] 04-08-2025 11:29-0400 Body weight 110.77 kg Zoë Hemmer PA Work Phone: [facility] 04-08-2025 11:29-0400 Diastolic blood pressure 68 mm[Hg] Zoë Hemmer PA Work Phone: [facility] 04-08-2025 11:29-0400 Heart rate 70 /min Zoë Hemmer PA Work Phone: [facility] 04-08-2025 11:29-0400 Respiratory rate 18 /min Zoë Hemmer PA Work Phone: [facility] 04-08-2025 11:29-0400 SaO2% (BldA) [Mass fraction] 98 % Zoë Hemmer PA Work Phone: [facility] 04-08-2025 11:29-0400 Systolic blood pressure 146 mm[Hg] Zoë Hemmer PA Work Phone: [facility] 04-02-2025 11:54-0400 Body height 188 cm Mohsen Sarabia MD Work Phone: [facility] 04-02-2025 11:54-0400 Body mass index (BMI) [Ratio] 31.07 kg/m2 Mohsen Sarabia MD Work Phone: [facility] 04-02-2025 11:54-0400 Body weight 109.77 kg Mohsen Sarabia MD Work Phone: [facility] 04-02-2025 11:54-0400 Diastolic blood pressure 65 mm[Hg] Mohsen Sarabia MD Work Phone: [facility] 04-02-2025 11:54-0400 Heart rate 68 /min Mohsen Sarabia MD Work Phone: [facility] 04-02-2025 11:54-0400 Respiratory rate 12 /min Mohsen Sarabia MD Work Phone: [facility] 04-02-2025 11:54-0400 SaO2% (BldA) [Mass fraction] 92 % Mohsen Sarabia MD Work Phone: [facility] 04-02-2025 11:54-0400 Systolic blood pressure 121 mm[Hg] Mohsen Sarabia MD Work Phone: [facility] 03-31-2025 13:24-0400 Body height 188 cm Flash Lovelace MD Work Phone: [facility] 03-31-2025 13:24-0400 Body mass index (BMI) [Ratio] 31.2 kg/m2 Flash Lovelace MD Work Phone: [facility] 03-31-2025 13:24-0400 Body weight 110.22 kg Flash Lovelace MD Work Phone: [facility] 03-31-2025 13:24-0400 Diastolic blood pressure 58 mm[Hg] Flash Lovelace MD Work Phone: [facility] 03-31-2025 13:24-0400 Heart rate 72 /min Flash Lovelace MD Work Phone: [facility] 03-31-2025 13:24-0400 SaO2% (BldA) [Mass fraction] 96 % Flash Lovelace MD Work Phone: [facility] 03-31-2025 13:24-0400 Systolic blood pressure 128 mm[Hg] Flash Lovelace MD Work Phone: [facility] 03-21-2025 14:58-0400 Body temperature 98.1 [degF] Uri Edgar DO Work Phone: [facility] 03-21-2025 14:58-0400 Diastolic blood pressure 73 mm[Hg] Uri Edgar DO Work Phone: [facility] 03-21-2025 14:58-0400 Heart rate 88 /min Uri Edgar DO Work Phone: [facility] 03-21-2025 14:58-0400 Respiratory rate 15 /min Uri Edgar DO Work Phone: [facility] 03-21-2025 14:58-0400 SaO2% (BldA) [Mass fraction] 96 % Uri Edgar DO Work Phone: [facility] 03-21-2025 14:58-0400 Systolic blood pressure 139 mm[Hg] Uri Edgar DO Work Phone: [facility] 03-14-2025 20:34-0400 Body height 188 cm Uri Edgar DO Work Phone: [facility] 03-14-2025 20:34-0400 Body mass index (BMI) [Ratio] 31.19 kg/m2 Uri Edgar DO Work Phone: [facility] 03-14-2025 20:34-0400 Body weight 110.2 kg Uri Voss DO Work Phone: [facility] 03-14-2025 09:55-0400 Diastolic blood pressure 90 mm[Hg] Ken Johnson CNP Work Phone: [facility] 03-14-2025 09:55-0400 Systolic blood pressure 147 mm[Hg] Ken Johnson CNP Work Phone: [facility] 03-14-2025 09:52-0400 Body height 185.4 cm Ken Johnson CNP Work Phone: [facility] 03-14-2025 09:52-0400 Body mass index (BMI) [Ratio] 32.98 kg/m2 Ken Johnson CNP Work Phone: [facility] 03-14-2025 09:52-0400 Body weight 113.4 kg Ken Johnson CNP Work Phone: [facility] 03-14-2025 09:52-0400 Heart rate 81 /min Ken Johnson CNP Work Phone: [facility] 03-14-2025 09:52-0400 SaO2% (BldA) [Mass fraction] 93 % Ken Johnson CNP Work Phone: [facility] 03-12-2025 18:50-0400 Diastolic blood pressure 83 mm[Hg] Flash Lovelace MD Work Phone: [facility] 03-12-2025 18:50-0400 Heart rate 83 /min Flash Lovelace MD Work Phone: [facility] 03-12-2025 18:50-0400 Respiratory rate 16 /min Flash Lovelace MD Work Phone: [facility] 03-12-2025 18:50-0400 SaO2% (BldA) [Mass fraction] 95 % Flash Lovelace MD Work Phone: [facility] 03-12-2025 18:50-0400 Systolic blood pressure 171 mm[Hg] Flash Lovelace MD Work Phone: [facility] 03-12-2025 17:05-0400 Inhaled oxygen flow rate 6 L/min Flash Lovelace MD Work Phone: [facility] 03-12-2025 13:05-0400 Body height 187.96 cm Flash Lovelace MD Work Phone: [facility] 03-12-2025 13:05-0400 Body temperature 98.1 [degF] Flash Lovelace MD Work Phone: [facility] 03-12-2025 13:05-0400 Body weight 113.39 kg Flash Lovelace MD Work Phone: [facility] 03-11-2025 11:34-0400 Body height 187.96 cm Flash Lovelace MD Work Phone: [facility] 03-11-2025 11:34-0400 Body mass index (BMI) [Ratio] 32.1 kg/m2 Flash Lovelace MD Work Phone: [facility] 03-11-2025 11:34-0400 Body temperature 98 [degF] Flash Lovelace MD Work Phone: [facility] 03-11-2025 11:34-0400 Body weight 113.39 kg Flash Lovelace MD Work Phone: [facility] 03-11-2025 11:34-0400 Diastolic blood pressure 72 mm[Hg] Flash Lovelace MD Work Phone: [facility] 03-11-2025 11:34-0400 Heart rate 77 /min Flash Lovelace MD Work Phone: [facility] 03-11-2025 11:34-0400 SaO2% (BldA) [Mass fraction] 98 % Flash Lovelace MD Work Phone: [facility] 03-11-2025 11:34-0400 Systolic blood pressure 160 mm[Hg] Flash Lovelace MD Work Phone: [facility] 01-09-2025 10:33-0400 Body height 188 cm Bhaskar Wilson [employer] Work Phone: [facility] 01-09-2025 10:33-0400 Body mass index (BMI) [Ratio] 32.23 kg/m2 Bhaskar Wilson [employer] Work Phone: [facility] 01-09-2025 10:33-0400 Body weight 113.85 kg Bhaskar Wilson [employer] Work Phone: [facility] 01-09-2025 10:33-0400 Diastolic blood pressure 74 mm[Hg] Bhaskar Wilson [employer] Work Phone: [facility] 01-09-2025 10:33-0400 Heart rate 83 /min Bhaskar Wilson [employer] Work Phone: [facility] 01-09-2025 10:33-0400 Respiratory rate 17 /min Bhaskar Wilson [employer] Work Phone: [facility] 01-09-2025 10:33-0400 SaO2% (BldA) [Mass fraction] 96 % Bhaskar Wilson [employer] Work Phone: [facility] 01-09-2025 10:33-0400 Systolic blood pressure 128 mm[Hg] Bhaskar Wilson [employer] Work Phone: [facility] 08-12-2024 13:21-0500 Body height 188 cm Flash Lovelace MD Work Phone: [facility] 08-12-2024 13:21-0500 Body mass index (BMI) [Ratio] 33 kg/m2 Flash Lovelace MD Work Phone: [facility] 08-12-2024 13:21-0500 Body weight 116.57 kg Flash Lovelace MD Work Phone: [facility] 08-12-2024 13:21-0500 Diastolic blood pressure 78 mm[Hg] Flash Lovelace MD Work Phone: [facility] 08-12-2024 13:21-0500 Heart rate 73 /min Flash Lovelace MD Work Phone: [facility] 08-12-2024 13:21-0500 SaO2% (BldA) [Mass fraction] 96 % Flash Lovelace MD Work Phone: [facility] 08-12-2024 13:21-0500 Systolic blood pressure 138 mm[Hg] Flash Lovelace MD Work Phone: [facility] 05-21-2024 13:07-0400 Body height 188 cm Zoë Hemmer PA Work Phone: [facility] 05-21-2024 13:07-0400 Body mass index (BMI) [Ratio] 31.38 kg/m2 Zoë Hemmer PA Work Phone: [facility] 05-21-2024 13:07-0400 Body weight 110.86 kg Zoë Hemmer PA Work Phone: [facility] 05-21-2024 13:07-0400 Diastolic blood pressure 84 mm[Hg] Zoë Hemmer PA Work Phone: [facility] 05-21-2024 13:07-0400 Heart rate 80 /min Zoë Hemmer PA Work Phone: [facility] 05-21-2024 13:07-0400 Respiratory rate 16 /min Zoë Hemmer PA Work Phone: [facility] 05-21-2024 13:07-0400 SaO2% (BldA) [Mass fraction] 98 % Zoë Hemmer PA Work Phone: [facility] 05-21-2024 13:07-0400 Systolic blood pressure 152 mm[Hg] Zoë Hemmer PA Work Phone: [facility] 04-26-2024 09:25-0400 Body height 188 cm Zoë Hemmer PA Work Phone: [facility] 04-26-2024 09:25-0400 Body mass index (BMI) [Ratio] 31.23 kg/m2 Zoë Hemmer PA Work Phone: [facility] 04-26-2024 09:25-0400 Body weight 110.31 kg Zoë Hemmer PA Work Phone: [facility] 04-26-2024 09:25-0400 Diastolic blood pressure 82 mm[Hg] Zoë Hemmer PA Work Phone: [facility] 04-26-2024 09:25-0400 Heart rate 70 /min Zoë Hemmer PA Work Phone: [facility] 04-26-2024 09:25-0400 Respiratory rate 16 /min Zoë Hemmer PA Work Phone: [facility] 04-26-2024 09:25-0400 SaO2% (BldA) [Mass fraction] 96 % Zoë Hemmer PA Work Phone: [facility] 04-26-2024 09:25-0400 Systolic blood pressure 132 mm[Hg] Zoë Hemmer PA Work Phone: [facility] 12-26-2023 13:07-0400 Blood Pressure Location BRENNA JAY [facility] 12-26-2023 13:07-0400 Diastolic blood pressure 74 mm[Hg] BRENNA JAY [facility] 12-26-2023 13:07-0400 Heart rate 68 /min BRENNA ROTHRY [facility] 12-26-2023 13:07-0400 Respiratory rate 16 /min BRENNA MOSQUERA [facility] 12-26-2023 13:07-0400 Systolic blood pressure 130 mm[Hg] BRENNA MOSQUERA [facility] 10-12-2023 15:13-0500 Diastolic blood pressure 77 mm[Hg] MD Flash Lovelace Work Phone: [facility] 10-12-2023 15:13-0500 Heart rate 67 /min MD Flash Lovelace Work Phone: [facility] 10-12-2023 15:13-0500 Respiratory rate 16 /min MD Flash Lovelace Work Phone: [facility] 10-12-2023 15:13-0500 SaO2% (BldA) [Mass fraction] 96 % MD Flash Lovelace Work Phone: [facility] 10-12-2023 15:13-0500 Systolic blood pressure 177 mm[Hg] MD Flash Lovelace Work Phone: [facility] 10-12-2023 08:43-0500 Body height 187.96 cm MD Flash Lovelace Work Phone: [facility] 10-12-2023 08:43-0500 Body weight 107 kg MD Flash Lovelace Work Phone: [facility] 10-03-2023 10:00-0500 Body height 187.96 cm Cristian Beaver Other [employer] [facility] [employer] Other 10-03-2023 10:00-0500 Body mass index (BMI) [Ratio] 30.55 kg/m2 Cristian Beaver Other [employer] [facility] [employer] Other 10-03-2023 10:00-0500 Body temperature 96.4 [degF] Cristian Beaver Other [employer] Other 10-03-2023 10:00-0500 Body weight 107.96 kg Cristian Beaver Other [employer] Other 10-03-2023 10:00-0500 Diastolic blood pressure 78 mm[Hg] Cristian Beaver Other [employer] Other 10-03-2023 10:00-0500 SaO2% (BldA) [Mass fraction] 94 % Cristian Beaver Other [employer] Other 10-03-2023 10:00-0500 Systolic blood pressure 150 mm[Hg] Cristian Beaver Other [employer] Other 08-10-2023 10:52-0500 Body height 188 cm Scar Nymirum HEALTH PHYSICIST[employer] IN[employer]ER Work Phone: [employer] 08-10-2023 10:52-0500 Body mass index (BMI) [Ratio] 29.53 kg/m2 Scar Nymirum HEALTH PHYSICIST[employer] IN[employer]ER Work Phone: [employer] 08-10-2023 10:52-0500 Body weight 104.33 kg Scar Nymirum HEALTH PHYSICIST[employer]ER Work Phone: [employer] 08-09-2023 12:29-0500 Diastolic blood pressure 80 mm[Hg] Mohsen Sarabia MD Work Phone: [facility] 08-09-2023 12:29-0500 Systolic blood pressure 135 mm[Hg] Mohsen Sarabia MD Work Phone: [facility] 08-09-2023 12:27-0500 Body height 185.4 cm Mohsen Sarabia MD Work Phone: [facility] 08-09-2023 12:27-0500 Body mass index (BMI) [Ratio] 30.34 kg/m2 Mohsen Sarabia MD Work Phone: [facility] 08-09-2023 12:27-0500 Body weight 104.33 kg Mohsen Sarabia MD Work Phone: [facility] 08-09-2023 12:27-0500 Heart rate 68 /min Mohsen Sarabia MD Work Phone: [facility] 08-09-2023 12:27-0500 Respiratory rate 12 /min Mohsen Sarabia MD Work Phone: [facility] 08-09-2023 12:27-0500 SaO2% (BldA) [Mass fraction] 93 % Mohsen Sarabia MD Work Phone: [facility] 06-12-2023 09:30-0400 Body height 187.96 cm Cristian Beaver Other [employer] Other 06-12-2023 09:30-0400 Body mass index (BMI) [Ratio] 30.55 kg/m2 Cristian Beaver Other [employer] Other 06-12-2023 09:30-0400 Body temperature 97.6 [degF] Cristian Beaver Other [employer] Other 06-12-2023 09:30-0400 Body weight 107.96 kg Cristian Beaver Other [employer] Other 06-12-2023 09:30-0400 Diastolic blood pressure 60 mm[Hg] Cristian Beaver Other [employer] Other 06-12-2023 09:30-0400 SaO2% (BldA) [Mass fraction] 97 % Cristian Beaver Other [employer] Other 06-12-2023 09:30-0400 Systolic blood pressure 138 mm[Hg] Cristian Buehrer Other [employer] Other 05-23-2023 10:45-0400 Body height 187.96 cm Cristian Buehrer Other [employer] Other 05-23-2023 10:45-0400 Body mass index (BMI) [Ratio] 30.55 kg/m2 Cristian Buehrer Other [employer] Other 05-23-2023 10:45-0400 Body temperature 97.8 [degF] Cristian Jonesehrer Other [employer] Other 05-23-2023 10:45-0400 Body weight 107.96 kg Cristian Jonesehrer Other [employer] Other 05-23-2023 10:45-0400 Diastolic blood pressure 78 mm[Hg] Cristian Buehrer Other [employer] Other 05-23-2023 10:45-0400 SaO2% (BldA) [Mass fraction] 98 % Cristian Buehrer Other [employer] Other 05-23-2023 10:45-0400 Systolic blood pressure 126 mm[Hg] Cristian Buehrer Other [employer] Other 11-14-2022 10:45-0400 Body height 187.96 cm Haven Malcolm Other [employer] Other 03-20-2023 10:45-0400 Body mass index (BMI) [Ratio] 31.45 kg/m2 Haven Malcolm Other [employer] Other 11-14-2022 10:45-0400 Body temperature 97.3 [degF] Haven Malcolm Other [employer] Other 11-14-2022 10:45-0400 Body weight 111.13 kg Haven Malcolm Other [employer] Other 11-14-2022 10:45-0400 Diastolic blood pressure 58 mm[Hg] Haven Malcolm Other [employer] Other 11-14-2022 10:45-0400 SaO2% (BldA) [Mass fraction] 94 % Haven Malcolm Other [employer] Other 11-14-2022 10:45-0400 Systolic blood pressure 130 mm[Hg] Haven Malcolm Other [employer] Other 11-08-2022 08:09-0400 Body temperature 97.5 [degF] Ronnie Montoya MD Work Phone: [facility] 11-08-2022 08:09-0400 Diastolic blood pressure 70 mm[Hg] Ronnie Montoya MD Work Phone: [facility] 11-08-2022 08:09-0400 Heart rate 81 /min Ronnie Montoya MD Work Phone: [facility] 11-08-2022 08:09-0400 Respiratory rate 16 /min Ronnie Montoya MD Work Phone: [facility] 11-08-2022 08:09-0400 SaO2% (BldA) [Mass fraction] 95 % Ronnie Montoya MD Work Phone: [facility] 11-08-2022 08:09-0400 Systolic blood pressure 122 mm[Hg] Ronnie Montoya MD Work Phone: [facility] 11-03-2022 13:29-0500 Body height 185.4 cm Ronnie Montoya MD Work Phone: [facility] 11-03-2022 13:29-0500 Body mass index (BMI) [Ratio] 32.98 kg/m2 Ronnie Montoya MD Work Phone: [facility] 11-03-2022 13:29-0500 Body weight 113.4 kg Ronnie Montoya MD Work Phone: [facility] 10-30-2022 21:30-0500 Diastolic blood pressure 70 mm[Hg] Dalila Arreguin MD [facility] Phone: [facility] 10-30-2022 21:30-0500 Heart rate 92 /min Dalila Arreguin MD Work Phone: [facility] 10-30-2022 21:30-0500 Respiratory rate 22 /min Dalila Arreguin MD Work Phone: [employer] 10-30-2022 21:30-0500 SaO2% (BldA) [Mass fraction] 90 % Dalila Arreguin MD Work Phone: [facility] 10-30-2022 21:30-0500 Systolic blood pressure 129 mm[Hg] Dalila Arreguin MD Work Phone: [facility] 10-30-2022 20:00-0500 Diastolic blood pressure 72 mm[Hg] Dalila Arreguin MD Work Phone: [employer] 10-30-2022 20:00-0500 Heart rate 90 /min Dalila Arreguin MD Work Phone: [employer] 10-30-2022 20:00-0500 Respiratory rate 7 /min Dalila Arreguin MD Work Phone: [facility] 10-30-2022 20:00-0500 SaO2% (BldA) [Mass fraction] 89 % Dalila Arreguin MD Work Phone: [employer] 10-30-2022 20:00-0500 Systolic blood pressure 157 mm[Hg] Dalila Arreguin MD Work Phone: [employer] 10-30-2022 19:34-0500 Body height 188 cm Dalila Arreguin MD Work Phone: [employer] 10-30-2022 19:34-0500 Body mass index (BMI) [Ratio] 32.1 kg/m2 Dalila Arreguin MD Work Phone: [employer] 10-30-2022 19:34-0500 Body weight 113.4 kg Dalila Arreguin MD Work Phone: [employer] 10-30-2022 19:06-0500 Body temperature 98.4 [degF] Dalila Arreguin MD Work Phone: [employer] 07-14-2022 10:48-0500 Body height 188 cm Scar Ortega HEALTH PHYSICIST-[employer] IN[employer]ER Work Phone: [employer] 07-14-2022 10:48-0500 Body mass index (BMI) [Ratio] 32.35 kg/m2 Scar Ortega HEALTH PHYSICIST[employer] IN[employer]ER Work Phone: [employer] 07-14-2022 10:48-0500 Body temperature 97.3 [degF] Scar Ortega HEALTH PHYSICIST[employer] INST[employer]ER Work Phone: [employer] 07-14-2022 10:48-0500 Body weight 114.31 kg Scar Ortega HEALTH PHYSICIST-[employer] INST[employer]ER Work Phone: [employer] 05-03-2022 13:00-0400 Body height 187.96 cm Cristian Beaver Other [employer] Other 05-03-2022 13:00-0400 Body mass index (BMI) [Ratio] 32.09 kg/m2 Cristian Beaver Other [employer] Other 05-03-2022 13:00-0400 Body temperature 97.2 [degF] Cristian Melendezwaldemar Other [employer] Other 05-03-2022 13:00-0400 Body weight 113.4 kg Cristian Beaver Other [employer] Other 05-03-2022 13:00-0400 Diastolic blood pressure 60 mm[Hg] Cristian Beaver Other [employer] Other 05-03-2022 13:00-0400 SaO2% (BldA) [Mass fraction] 96 % Cristian Beaver Other [employer] Other 05-03-2022 13:00-0400 Systolic blood pressure 142 mm[Hg] Cristian Smithradha Other [employer] Other 04-25-2022 16:45-0400 Diastolic blood pressure 67 mm[Hg] MD Flash Lovelace Work Phone: [facility] 04-25-2022 16:45-0400 Heart rate 67 /min MD Flash Lovelace Work Phone: [facility] 04-25-2022 16:45-0400 Respiratory rate 16 /min MD Flash Lovelace Work Phone: [facility] 04-25-2022 16:45-0400 SaO2% (BldA) [Mass fraction] 97 % MD Flash Lovelace Work Phone: [facility] 04-25-2022 16:45-0400 Systolic blood pressure 158 mm[Hg] MD Flash Lovelace Work Phone: [facility] 04-25-2022 11:24-0400 Body height 187.96 cm MD Flash Lovelace Work Phone: [facility] 04-25-2022 11:24-0400 Body weight 113.39 kg MD Flash Lovelace Work Phone: [facility] 04-19-2022 10:45-0400 Body height 187.96 cm Cristian Buehrer Other [facility] Other 04-19-2022 10:45-0400 Body mass index (BMI) [Ratio] 32.09 kg/m2 Cristian Buehrer Other [facility] Other 04-19-2022 10:45-0400 Body temperature 97.5 [degF] Cristian Buehrer Other [facility] Other 04-19-2022 10:45-0400 Body weight 113.4 kg Cristian Jonesehrer Other [facility] Other 04-19-2022 10:45-0400 Diastolic blood pressure 64 mm[Hg] Cristian Melendezrer Other [facility] Other 04-19-2022 10:45-0400 SaO2% (BldA) [Mass fraction] 97 % Cristian Jonesehrer Other [facility] Other 04-19-2022 10:45-0400 Systolic blood pressure 130 mm[Hg] Cristian Buehrer Other [facility] Other 04-15-2022 17:00-0400 Respiratory rate 16 /min Carson Brock MD Work Phone: [facility] 04-15-2022 15:28-0400 Body temperature 97.9 [degF] Carson Brock MD Work Phone: [facility] 04-15-2022 15:28-0400 Diastolic blood pressure 57 mm[Hg] Carson Brock MD Work Phone: [facility] 04-15-2022 15:28-0400 Heart rate 65 /min Carson Brock MD Work Phone: [facility] 04-15-2022 15:28-0400 SaO2% (BldA) [Mass fraction] 94 % Carson Brock MD Work Phone: [facility] 04-15-2022 15:28-0400 Systolic blood pressure 153 mm[Hg] Carson Brock MD Work Phone: [facility] 04-14-2022 19:35-0400 Body height 188 cm Carson Brock MD Work Phone: [facility] 04-14-2022 19:35-0400 Body mass index (BMI) [Ratio] 31.71 kg/m2 Carson Brock MD Work Phone: [facility] 04-14-2022 19:35-0400 Body weight 112.04 kg Carson Brock MD Work Phone: [facility] 02-25-2022 09:43-0400 Body height 188 cm Wagner Moon MD Work Phone: [facility] 02-25-2022 09:43-0400 Body mass index (BMI) [Ratio] 32.21 kg/m2 Wagner Moon MD Work Phone: [facility] 02-25-2022 09:43-0400 Body temperature 99.1 [degF] Wagner Moon MD Work Phone: [facility] 02-25-2022 09:43-0400 Body weight 113.81 kg Wagner Moon MD Work Phone: [facility] 02-25-2022 09:43-0400 Diastolic blood pressure 84 mm[Hg] Wagner Moon MD Work Phone: [facility] Comment on above: anxiety 02-25-2022 09:43-0400 Heart rate 66 /min Wagner Moon MD Work Phone: [facility] 02-25-2022 09:43-0400 Respiratory rate 16 /min Wagner Moon MD Work Phone: [facility] 02-25-2022 09:43-0400 SaO2% (BldA) [Mass fraction] 95 % Wagner Moon MD Work Phone: [facility] 02-25-2022 09:43-0400 Systolic blood pressure 181 mm[Hg] Wagner Moon MD Work Phone: [facility] Comment on above: anxiety 01-21-2022 14:15-0400 Respiratory rate 16 /min Mikey Mcguire MD Work Phone: [facility] 01-21-2022 07:53-0400 Body temperature 97.9 [degF] Mikey Mcguire MD Work Phone: [facility] 01-21-2022 07:53-0400 Diastolic blood pressure 73 mm[Hg] Mikey Mcguire MD Work Phone: [facility] 01-21-2022 07:53-0400 Heart rate 66 /min Mikey Mcguire MD Work Phone: [facility] 01-21-2022 07:53-0400 SaO2% (BldA) [Mass fraction] 91 % Mikey Mcguire MD Work Phone: [facility] 01-21-2022 07:53-0400 Systolic blood pressure 133 mm[Hg] Mikey Mcguire MD Work Phone: [facility] 01-18-2022 20:43-0400 Body height 188 cm Mikey Mcguire MD Work Phone: [facility] 01-18-2022 20:43-0400 Body mass index (BMI) [Ratio] 32.1 kg/m2 Mikey Mcguire MD Work Phone: [facility] 01-18-2022 20:43-0400 Body weight 113.4 kg Mikey Mcguire MD Work Phone: [facility] 01-12-2022 09:04-0400 Body height 188 cm Dashawn Silvestre MD Work Phone: [facility] 01-12-2022 09:04-0400 Body mass index (BMI) [Ratio] 32.38 kg/m2 Dashawn Silvestre MD Work Phone: [facility] 01-12-2022 09:04-0400 Body temperature 97.11 [degF] Dashawn Silvestre MD Work Phone: [facility] 01-12-2022 09:04-0400 Body weight 114.4 kg Dashawn Silvestre MD Work Phone: [facility] 11-24-2021 09:44-0400 Body height 188 cm Dashawn Silvestre MD Work Phone: [facility] 11-24-2021 09:44-0400 Body mass index (BMI) [Ratio] 31.07 kg/m2 Dashawn Silvestre MD Work Phone: [facility] 11-24-2021 09:44-0400 Body weight 109.77 kg Dashawn Silvestre MD Work Phone: [facility] 10-09-2019 14:17-0500 BMI (Body Mass Index) 31.46 kg/m2 [facility] 10-09-2019 14:17-0500 Body weight 111.13 kg [facility] 10-09-2019 14:17-0500 BP Diastolic 66 mm[Hg] [facility] 10-09-2019 14:17-0500 BP Systolic 135 mm[Hg] [facility] 10-09-2019 14:17-0500 Height 188 cm [facility] 10-09-2019 14:17-0500 Pulse (Heart Rate) 71 /min [facility] 10-09-2019 14:17-0500 Pulse Oximetry 95 % [facility] 03-13-2019 09:57-0400 BMI (Body Mass Index) 27.99 kg/m2 Mohsen Sarabia [facility] 03-13-2019 09:57-0400 Body weight 98.88 kg Mohsen [facility] 03-13-2019 09:57-0400 BP Diastolic 73 mm[Hg] Mohsen Sarabia [facility] 03-13-2019 09:57-0400 BP Systolic 156 mm[Hg] Mohsen Sarabia [facility] 03-13-2019 09:57-0400 Height 188 cm Mohsen Sarabia [facility] 03-13-2019 09:57-0400 Pulse (Heart Rate) 72 /min Mohsen Sarabia [facility] 03-13-2019 09:57-0400 Pulse Oximetry 98 % Mohsen Sarabia [facility] 03-13-2019 09:57-0400 Respiratory Rate 16 /min Mohsen Sarabia [facility] 10-25-2018 15:07-0500 Body Temperature 99.39 [degF] [facility] 10-25-2018 15:07-0500 BP Diastolic 74 mm[Hg] [facility] 10-25-2018 15:07-0500 BP Systolic 176 mm[Hg] [facility] 10-25-2018 15:07-0500 Pulse (Heart Rate) 96 /min [facility] 10-25-2018 15:07-0500 Respiratory Rate 16 /min [facility] 10-18-2018 15:29-0500 Body Temperature 98.4 [degF] [facility] 10-18-2018 15:29-0500 BP Diastolic 79 mm[Hg] [facility] 10-18-2018 15:29-0500 BP Systolic 137 mm[Hg] [facility] 10-18-2018 15:29-0500 Pulse (Heart Rate) 86 /min [facility] 10-18-2018 15:29-0500 Respiratory Rate 16 /min [facility] 10-12-2018 18:41-0500 BP Diastolic 64 mm[Hg] [facility] 10-12-2018 18:41-0500 BP Systolic 138 mm[Hg] [facility] 10-12-2018 12:17-0500 Body Temperature 98.2 [degF] [facility] 10-12-2018 12:17-0500 Pulse (Heart Rate) 72 /min [facility] 10-12-2018 12:17-0500 Pulse Oximetry 96 % [facility] 10-12-2018 12:17-0500 Respiratory Rate 14 /min [facility] 10-08-2018 06:20-0500 BMI (Body Mass Index) 27.99 kg/m2 [facility] 10-08-2018 06:20-0500 Height 188 cm [facility] 10-08-2018 06:20-0500 Weight 98.88 kg [facility] 10-04-2018 13:08-0500 Body Temperature 98.2 [degF] [facility] 10-04-2018 13:08-0500 BP Diastolic 80 mm[Hg] [facility] 10-04-2018 13:08-0500 BP Systolic 154 mm[Hg] [facility] 10-04-2018 13:08-0500 Pulse (Heart Rate) 87 /min [facility] 10-04-2018 13:08-0500 Respiratory Rate 16 /min [facility] 09-20-2018 14:15-0500 BMI (Body Mass Index) 30.3 kg/m2 [facility] 09-20-2018 14:15-0500 Body Temperature 97.9 [degF] [facility] 09-20-2018 14:15-0500 BP Diastolic 75 mm[Hg] [facility] 09-20-2018 14:15-0500 BP Systolic 136 mm[Hg] [facility] 09-20-2018 14:15-0500 Height 188 cm [facility] 09-20-2018 14:15-0500 Pulse (Heart Rate) 92 /min [facility] 09-20-2018 14:15-0500 Respiratory Rate 16 /min [facility] 09-20-2018 14:15-0500 Weight 107.05 kg [facility] 09-13-2018 10:30-0500 Respiratory Rate 20 /min [facility] 09-13-2018 07:36-0500 Body Temperature 99.3 [degF] [facility] 09-13-2018 07:36-0500 BP Diastolic 66 mm[Hg] [facility] 09-13-2018 07:36-0500 BP Systolic 147 mm[Hg] [facility] 09-13-2018 07:36-0500 Pulse (Heart Rate) 103 /min [facility] 09-13-2018 07:36-0500 [facility]ulse [facility] 92 [facility]-04-[facility] 19:09-0500 BMI (Body Mass Index) 31.58 kg/m2 Tiana Em [facility] 09-04-2018 19:09-0500 Height 188 cm Tiana Em [facility] 09-04-2018 19:09-0500 Weight 111.58 kg Tiana Em [facility] Encounters Encounter Date Encounter Type Care Provider Facility Start: 04-15-2025 End: 04-15-2025 Clinisync Result Encounter Generic External Data Provider [facility] External Department Unsolicited Start: 04-15-2025 End: 04-15-2025 Clinisync Result Encounter Generic External Data Provider [facility] External Department Unsolicited Start: 04-15-2025 ambulatory FLASH LOVELACE Not Availa ble Start: 04-14-2025 End: 04-14-2025 Office outpatient visit 25 minutes Flash Lovelace MD Work Phone: [facility] Comment on above: PVD (peripheral vasc ular disease) with claudication (Primary Dx); Ischemic toe ulcer, right, with 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); Osteomyelitis of right foot, unspecified type (HCC) Start: 04-14-2025 End: 04-14-2025 ambulatory FLASH LOVELACE Not Available Start: 04-09-2025 End: 04-09-2025 Telephone encounter Zoë BROWER Work Phone: [facility] Start: 04-08-2025 End: 04-08-2025 Bamboo flowsheet Zoë BROWER Work Phone: [facility] Start: 04-08-2025 End: 04-09-2025 Bamboo flowsheet Zoë BROWER Work Phone: [facility] Start: 04-08-2025 End: 04-09-2025 External Result Encounter Zoë BROWER Work Phone: [facility] External Department Unsolicited Start: 04-08-2025 End: 04-08-2025 Office outpatient visit 25 minutes Zoë BROWER Work Phone: [facility] Comment on above: PVD (peripheral vasc ular disease) with claudication (Primary Dx); Acquired absence of left foot (HCC); Ischemic toe ulcer, right, with 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) Start: 04-08-2025 End: 04-08-2025 ambulatory ZOË KING Not Available Start: 04-02-2025 End: 04-02-2025 Office outpatient visit 15 minutes Mohsen Sarabia MD Work Phone: [facility] Comment on above: Critical lower limb ischemia (HCC) (Primary Dx) Start: 04-02-2025 End: 04-02-2025 ambulatory MOHSEN SARABIA [facility] Start: 03-31-2025 End: 03-31-2025 Office outpatient visit 25 minutes Flash Lovelace MD Work Phone: [facility] [place] Comment on above: PVD (peripheral vasc ular disease) with claudication; History of prostate cancer; Urinary hesitancy Start: 03-31-2025 End: 03-31-2025 ambulatory FLASH LOVELACE Not Available Start: 03-26-2025 [facility] Start: 03-18-2025 End: 03-18-2025 Documentation procedure Brenna Galloway RN [facility] Start: 03-14-2025 End: 03-14-2025 Documentation procedure Ludivina Garcia RN [facility] Start: 03-14-2025 End: 03-21-2025 Evaluation and management of inpatient Elaine Macdonald MD Work Phone: [facility] Start: 03-14-2025 End: 03-14-2025 Postop follow up visit related to original px Mohsen Sarabia MD Work Phone: [facility] Comment on above: Acute pain of right lower extremity (Primary Dx) Start: 03-14-2025 End: 03-14-2025 ambulatory MOHSEN SARABIA [facility] Start: 03-14-2025 End: 03-14-2025 ambulatory MOHSEN DE OLIVEIRA CORNELL [facility] Start: 03-13-2025 End: 03-13-2025 Documentation procedure Ludivina Garcia RN [facility] Start: 03-12-2025 End: 03-12-2025 Admission to same day surgery center Cristian Beaver MD -[facility] [place] Start: 03-12-2025 End: 03-12-2025 ambulatory Flash Lovelace MD Work Phone: [facility] Work Phone: Start: 03-11-2025 End: 03-11-2025 ambulatory Flash Lovelace MD Work Phone: [facility] Work Phone: Start: 03-11-2025 End: 03-11-2025 Patient encounter procedure Cristian Beaver MD -[facility] Work Phone: Start: 02-13-2025 End: 02-13-2025 Refill Flash Lovelace MD Work Phone: [facility] Comment on above: Primary insomnia; Other chronic pain; Lumbosacral spondylosis without myelopathy Start: 01-09-2025 End: 01-09-2025 Bamboo flowsheet Bhaskar Wilson [employer] Work Phone: [facility] Start: 01-09-2025 End: 01-09-2025 Bamboo flowsheet Bhaskar Wilson [employer] Work Phone: [facility] Start: 01-09-2025 End: 01-09-2025 Office outpatient visit 25 minutes Bhaskar Wilson [employer] Work Phone: [facility] Comment on above: Dysuria (Primary Dx) ; History of prostate cancer; Urinary hesitancy; Right-sided low back pain without sciatica, unspecified chronicity Start: 01-09-2025 End: 01-09-2025 ambulatory BHASKAR WILSON Not Available Start: 01-02-2025 End: 01-02-2025 Refill Flash Lovelace MD Work Phone: [facility] Comment on above: Other chronic pain; Lumbosacral spondylosis without myelopathy Start: 12-18-2024 ambulatory ELIEZER COLÓNHARSHJAYDEN Sanjeev paul [facility] Start: 11-26-2024 End: 11-26-2024 Refill Flash Lovelace MD Work Phone: [facility] Comment on above: Other chronic pain ( Primary Dx); Sinusitis, unspecified chronicity, unspecified location; Lumbosacral spondylosis without myelopathy Start: 11-25-2024 End: 11-26-2024 ambulatory Elaine [facility] Start: 11-04-2024 End: 11-04-2024 ambulatory FLASH LOVELACE Not Available Start: 10-18-2024 End: 10-21-2024 Refill Lorraine Valdez MA [facility] Comment on above: Lumbosacral spondylo sis without myelopathy Start: 10-01-2024 ambulatory MOHSEN GARCIACK [facility] Start: 09-23-2024 End: 09-23-2024 Documentation procedure Ludivina Garcia RN [facility] Start: 09-12-2024 End: 09-13-2024 Refill Flash Lovelace MD Work Phone: [facility] Comment on above: Lumbosacral spondylo sis without myelopathy Start: 08-20-2024 End: 08-20-2024 Documentation procedure Ludivina Garcia RN [facility] Start: 08-12-2024 End: 08-12-2024 Office outpatient visit 25 minutes Flash Lovelace MD Work Phone: [facility] Comment on above: Other chronic pain ( Primary Dx); Primary insomnia; Seasonal allergic rhinitis due to pollen; Encounter for vaccination; Phantom limb pain (CMS/HCC) Start: 08-12-2024 End: 08-12-2024 ambulatory FLASH LOVELACE Not Available Start: 08-06-2024 End: 08-06-2024 Refill Flash Lovelace MD Work Phone: [facility] Comment on above: Lumbosacral spondylo sis without myelopathy Start: 08-01-2024 End: 08-01-2024 Orders Only Ludivina Garcia RN [facility] Comment on above: PVD (peripheral vasc ular disease) (HCC) (Primary Dx) Start: 07-29-2024 End: 07-29-2024 ambulatory [facility] Facility:[facility] Start: 07-22-2024 End: 07-22-2024 ambulatory [facility] Start: 07-11-2024 End: 07-11-2024 Clinisync Result Encounter Generic External Data Provider [facility] External Department Unsolicited Start: 07-11-2024 End: 07-11-2024 Clinisync Result Encounter Generic External Data Provider [facility] External Department Unsolicited Start: 07-10-2024 End: 07-10-2024 ambulatory [facility] Start: 07-05-2024 End: 07-05-2024 Refill Flash Lovelace MD Work Phone: [facility] Comment on above: Lumbosacral spondylo sis without myelopathy Start: 07-03-2024 End: 07-03-2024 Clinisync Result Encounter Generic External Data Provider [facility] External Department Unsolicited Start: 07-03-2024 End: 07-03-2024 Clinisync Result Encounter Generic External Data Provider [facility] External Department Unsolicited Start: 06-17-2024 End: 06-17-2024 Telephone encounter Flash Lovelace MD Work Phone: [facility] Start: 05-28-2024 End: 05-28-[address] [facility] Start: 05-21-2024 End: 05-21-2024 Bamboo flowssandro BROWER Work Phone: [facility] Start: 05-21-2024 End: 05-21-2024 Bamboo flowssandro BROWER Work Phone: [facility] Start: 05-21-2024 End: 05-21-2024 Office outpatient visit 25 minutes Zoë BROWER Work Phone: [facility] Comment on above: Chest pain in adult (Primary Dx); Lumbosacral spondylosis without myelopathy; 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CMS/HCC); Seasonal allergic rhinitis due to pollen Start: 05-21-2024 End: 05-21-2024 ambulatory OZË KING Not Available Start: 05-14-2024 End: 05-14-2024 Clinisync Result Encounter Generic External Data Provider [facility] External Department Unsolicited Start: 05-14-2024 End: 05-14-2024 Clinisync Result Encounter Generic External Data Provider [facility] External Department Unsolicited Start: 05-13-2024 End: 05-13-2024 Clinisync Result Encounter Generic External Data Provider [facility] External Department Unsolicited Start: 05-13-2024 End: 05-13-2024 Clinisync Result Encounter Generic External Data Provider [facility] External Department Unsolicited Start: 05-12-2024 End: 05-14-2024 ambulatory FLASH LOVELACE [facility] Start: 04-26-2024 End: 04-26-2024 Bamboo flowsheet Zoë BROWER Work Phone: [facility] Start: 04-26-2024 End: 04-26-2024 Bamboo flowsheet Zoë BROWER Work Phone: [facility] Start: 04-26-2024 End: 04-26-2024 Patient encounter procedure Zoë BROWER Work Phone: [facility] Comment on above: Medicare annual [facility] visit, subsequent (Primary Dx); ACP (advance care planning); Primary insomnia; Neuropathy; Other chronic pain; Paresthesia of skin; Phantom limb pain (CMS/HCC); Polymyalgia rheumatica (CMS/HCC); Mild persistent asthmatic bronchitis without complication (CMS/HCC); Chronic bronchitis, unspecified chronic bronchitis type (CMS/HCC); Dyspnea on exertion; Orthopnea; Snoring; Solitary pulmonary nodule; Abdominal aortic aneurysm (AAA) without rupture, unspecified part (CMS/HCC); Aortic valve insufficiency, etiology of cardiac valve disease unspecified; Atherosclerosis of [place] coronary artery of [place] heart without angina pectoris (CMS/HCC); Benign essential hypertension (CMS/HCC); Stenosis of right carotid artery; Chronic heart failure with preserved ejection fraction (CMS/HCC); Chronic ischemic heart disease (CMS/HCC); Mitral valve insufficiency, unspecified etiology; Paroxysmal atrial fibrillation (CMS/HCC); Preinfarction syndrome (CMS/HCC); PVD (peripheral vascular disease) with claudication (CMS/HCC); Thoracic aortic aneurysm without rupture, unspecified part (CMS/HCC); Heartburn; Slow transit constipation; 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); Impotence of organic origin; Malignant neoplasm of prostate (CMS/HCC); Stage 3a chronic kidney disease (HCC) (CMS/HCC); Arthritis; Status post total replacement of right hip; Claudication of right lower extremity (CMS/HCC); Lumbosacral spondylosis without myelopathy; Posterior tibial tendinitis of right leg; Primary osteoarthritis of right hip; Class 1 obesity with serious comorbidity and body mass index (BMI) of 31.0 to 31.9 in adult, unspecified obesity type; Elevated erythrocyte sedimentation rate; Other thrombophilia (CMS/HCC); Abnormal radiographic examination; Disorder of lipid metabolism (CMS/HCC); Left sciatic nerve pain; Mixed hyperlipidemia (CMS/HCC); Seasonal allergic rhinitis due to pollen; 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CMS/HCC); Atherosclerosis of [place] arteries of extremities with rest pain, unspecified extremity (CMS/HCC); Pulmonary hypertension, unspecified (CMS/HCC) Start: 04-26-2024 End: 04-26-2024 ambulatory ZOË KING Not Available Start: 04-24-2024 End: 04-24-[address] [facility] Start: 12-26-2023 End: 12-27-2023 ambulatory BRENNA MOSQUERA Facility:[facility] Start: 12-26-2023 End: 12-26-2023 Patient encounter procedure BRENNA MOSQUERA [facility] Start: 10-17-2023 End: 10-17-2023 ambulatory MD Flash Lovelace Work Phone: [facility] Work Phone: Start: 10-17-2023 End: 10-17-2023 Patient encounter procedure MD Flash Lovelace Work Phone: [facility]Electrodiagnostic [facility] Work Phone: Start: 10-12-2023 Non-patient / Non-visit MD Davon Lovelace Work Phone: [facility] Work Phone: Start: 10-12-2023 End: 10-12-2023 Admission to same day surgery center MD Flash Lovelace Work Phone: [facility]Interventional Radiology Work Phone: Start: 10-12-2023 End: 10-12-2023 ambulatory MD Flash Lovelace Work Phone: [facility] Work Phone: Start: 10-03-2023 End: 10-03-2023 ambulatory Cristian Beaver Other [facility] Other Start: 10-03-2023 Office outpatient vi sit 25 minutes Cristian Beaver [facility] Vascular Surgery Start: 08-10-2023 ambulatory SCAR ORTEGA [facility] Start: 08-10-2023 End: 08-10-2023 Office outpatient visit 15 minutes Scar MAOTS Work Phone: [facility] Comment on above: Hx of total hip arth roplasty, right (Primary Dx) Start: 08-10-2023 End: 08-10-2023 Subsequent hospital visit by physician Scar MATOS Work Phone: [facility] Radiology Start: 08-09-2023 End: 08-09-2023 Office outpatient visit 10 minutes Mohsen Sarabia MD Work Phone: [facility] Comment on above: Critical lower limb ischemia (HCC) (Primary Dx) Start: 06-20-2023 Documentation procedure Katie harman RN [facility] Start: 06-12-2023 Office outpatient vi sit 25 minutes Cristian Beaver [facility] Vascular Surgery Start: 06-12-2023 End: 06-12-2023 ambulatory MD Flash Lovelace Work Phone: [facility] Other Start: 06-12-2023 End: 06-12-2023 Patient encounter procedure MD Flash Lovelace Work Phone: [facility]Ultrasound [facility] Start: 06-06-2023 End: 04-26-2024 Assay of hemosiderin, tosha King PA Work Phone: [facility] Start: 05-23-2023 Office outpatient vi sit 25 minutes Haven Malcolm [facility] Vascular Surgery Start: 05-23-2023 End: 05-23-2023 ambulatory MD Flash Lovelace Work Phone: [facility] Start: 05-23-2023 End: 05-23-2023 Patient encounter procedure MD Flash Lovelace Work Phone: [facility]Ul[facility] Start: 05-15-2023 Orders Only Mohsen paris MD Work Phone: [facility] Comment on above: PAD (peripheral devyn ry disease) (HCC) (Primary Dx) Start: 12-20-2022 End: 12-20-2022 Patient encounter procedure BRENNA MOSQUERA [facility] Start: 12-07-2022 End: 12-08-[address] FLASH LOVELACE Facility: Start: 11-14-2022 End: 11-14-2022 ambulatory aHven Malcolm Other Path Other Start: 11-14-2022 Follow-up encounter Haven Tejeda PG Vascular Surgery Start: 11-10-2022 End: 11-11-[address] FLASH LOVELACE Facility:[facility]1 Start: 11-08-2022 End: 11-08-2022 Patient encounter procedure BRENNA Hortensia MOSQUERA [facility] Start: 11-03-2022 End: 11-08-2022 Evaluation and management of inpatient Ronnie Montoya MD Work Phone: [facility] Start: 10-30-2022 End: 10-30-2022 Emergency department patient visit FLASH ALCALA Work Phone: Comment on above: 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, unspecified part of lung (Primary Dx); COPD exacerbation (HCC) Start: 10-11-2022 End: 10-12-[address] FLASH LOVELACE Facility:[facility]1 Start: 09-20-2022 Documentation procedure Violetta Huerta [facility] Heart, Lung & Vascular Surgeons Start: 08-30-2022 Refill Carolee Avila LPN [facility] Pulmonary Physicians Comment on above: Chronic obstructive pulmonary disease, unspecified COPD type (HCC) Start: 07-14-2022 End: 07-14-2022 Office outpatient visit 15 minutes Scar Ortega APRN-CABINET INSTALLER Work Phone: [facility] Orthopedics Comment on above: Hx of total hip arth roplasty, right (Primary Dx) Start: 07-14-2022 End: 07-14-2022 Subsequent hospital visit by physician Scar Ortega APRN-CABINET INSTALLER Work Phone: [facility] Radiology Start: 05-25-2022 Orders Only Katie Anna RN [facility] Heart, Lung & Vascular Surgeons Comment on above: Bilateral carotid ar petra stenosis (Primary Dx) Start: 05-11-2022 End: 05-12-2022 ambulatory [facility] Start: 05-03-2022 End: 05-03-2022 ambulatory Cristian Beaver Other Path Other Start: 05-03-2022 Office outpatient vi sit 25 minutes Cristian Beaver [facility] Vascular Surgery Start: 04-25-2022 End: 04-25-2022 Admission to same day surgery center MD Flash Lovelace Work Phone: [facility] Rad[facility] Start: 04-19-2022 End: 04-19-2022 ambulatory Cristian Beaver Other [facility] [employer] Other Start: 04-19-2022 Office outpatient ne w 45 minutes Cristian Beaver [facility] Vascular Surgery Start: 04-16-2022 Documentation procedure Aaron Fenton DPM Work Phone: [facility] Start: 04-14-2022 End: 04-15-2022 Emergency department patient visit Carson Brock MD Work Phone: [facility] Medical Observation Start: 04-14-2022 Documentation procedure Katie harman RN [facility] Heart, Lung & Vascular Surgeons Start: 02-25-2022 End: 02-25-2022 Office outpatient new 45 minutes Muna Otto MD Work Phone: [facility] Pulmonary Physicians Comment on above: Chronic obstructive pulmonary disease, unspecified COPD type (HCC) (Primary Dx); Pulmonary nodule Start: 01-28-2022 End: 01-29-2022 ambulatory ELIZABETH LAI Facility:[facility]1 Start: 01-18-2022 End: 01-21-2022 Evaluation and management of inpatient Mikey Mcguire MD Work Phone: [facility] Start: 01-18-2022 Documentation procedure Katie harman RN [facility] Heart, Lung & Vascular Surgeons Start: 01-12-2022 End: 01-12-2022 Office outpatient visit 15 minutes Dashawn Silvestre MD Work Phone: [facility] Orthopedics Comment on above: Hx of total hip arth roplasty, right (Primary Dx) Start: 01-12-2022 End: 01-12-2022 Subsequent hospital visit by physician Dashawn Silvestre MD Work Phone: [facility] Radiology Start: 12-28-2021 End: 01-01-2022 ambulatory [facility] Start: 12-28-2021 End: 12-28-2021 Office outpatient new 30 minutes [facility] Work Phone: [facility] Dermatology Comment on above: Actinic keratosis (P rimary Dx); SK (seborrheic keratosis); Inflamed seborrheic keratosis; Skin tenderness; Xerosis cutis Start: 11-24-2021 End: 11-24-2021 Office outpatient visit 15 minutes Dashawn Silvestre MD Work Phone: [facility] Orthopedics Comment on above: Pain in prosthetic j oint, subsequent encounter (Primary Dx) Start: 11-24-2021 End: 11-24-2021 Subsequent hospital visit by physician Dashawn Silvestre MD Work Phone: [facility] Radiology Start: 04-06-2021 End: 04-06-2021 Orders Only Katie Anna RN [facility] Heart, Lung & Vascular Surgeons Comment on above: Bilateral carotid ar petra stenosis (Primary Dx); PAD (peripheral artery disease) (HCC) PAD (peripheral devyn ry disease) (HCC) (Primary Dx) Start: 09-11-2020 End: 09-11-2020 Orders Only Rhonda Oviedo Work Phone: [facility] Start: 03-16-2020 End: 03-16-2020 Subsequent hospital visit by physician Mohsen aSrabia Work Phone: 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 CT Comment on above: S/P bypass graft of extremity; PAD (peripheral artery disease) (HCC); Atherosclerosis of [place] arteries of the extremities with ulceration (HCC) Start: 10-09-2019 End: 10-09-2019 Office outpatient visit 25 minutes Rose Rosales Work Phone: [facility] Heart, Lung & Vascular Surgeons Comment on above: Pain of left lower e xtremity (Primary Dx) Start: 10-09-2019 End: 10-09-2019 Subsequent hospital visit by physician Mohsen Sarabia Work Phone: [facility] Comment on above: 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); S/P bypass graft of extremity Start: 03-18-2019 End: 03-18-2019 Subsequent hospital visit by physician Mohsen Sarabia Work Phone: [facility] Peripheral Vascular Lab Comment on above: Bilateral carotid ar petra stenosis Start: 03-13-2019 End: 03-13-2019 Office outpatient visit 10 minutes Mohsen Sarabia Work Phone: [facility] Heart, Lung & Vascular Surgeons Comment on above: Critical lower limb ischemia (Primary Dx) Start: 03-13-2019 End: 03-13-2019 Subsequent hospital visit by physician Mohsen Sarabia Work Phone: [facility] Comment on above: 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) Start: 12-17-2018 End: 12-17-2018 Office outpatient new 30 minutes Eugene Barnett Work Phone: [facility] ENT Comment on above: Referred otalgia of right ear (Primary Dx); Bilateral temporomandibular joint pain Start: 11-23-2018 Patient encounter procedure ANALIA FOX Facility[facility] Start: 10-31-2018 End: 10-31-2018 Emergency department patient visit SHAYY Deanna [facility] Start: 10-31-2018 End: 10-31-2018 Office outpatient visit 10 minutes Mohsen Sarabia Work Phone: [facility] Heart, Lung & Vascular Surgeons Comment on above: Gangrene of left eliseo t (HCC) (Primary Dx); Critical lower limb ischemia Start: 10-31-2018 End: 10-31-2018 Subsequent hospital visit by physician Mohsen Sarabia Work Phone: [facility] Comment on above: Atherosclerosis of n ative artery of left lower extremity with rest pain (HCC) ; S/P bypass graft of extremity; Atherosclerosis of [place] artery of left lower extremity with rest pain (HCC) Start: 10-31-2018 End: 10-31-2018 Patient encounter procedure Mohsen Sarabia Work Phone: [facility] Comment on above: 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) ; S/P bypass graft of extremity; 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) Start: 10-26-2018 Coordination of care plan [facility] & Care Coordination Start: 10-26-2018 End: 10-26-2018 [facility] Start: 10-25-2018 End: 10-25-2018 Postop follow up visit related to original px Flynn Beena Mehl Work Phone: 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 Wound Care Comment on above: Gangrene (HCC) (Prim katherine Dx); PVD (peripheral vascular disease) ([facility]); Left foot pain; Critical lower limb ischemia; Ulcer of toe of left foot, with necrosis of bone (HCC) Start: 09-27-2018 Coordination of care plan Mine Darrion [facility] & Care Coordination Start: 09-27-2018 End: 09-27-2018 Patient encounter procedure Mine Lew [facility] Start: 09-21-2018 End: 09-21-2018 Coordination of care plan [facility] Start: 09-21-2018 End: 09-21-2018 Patient encounter procedure Mine Lew [facility] Start: 09-20-2018 End: 09-20-2018 Patient encounter procedure Flynn Mann Work Phone: [facility] Fluoroscopy Comment on above: Critical lower limb ischemia Start: 09-20-2018 End: 09-20-2018 Office outpatient visit 15 minutes Flynn Mann Work Phone: [facility] Wound Care Comment on above: Critical lower limb ischemia (Primary Dx); Gangrene (HCC); PVD (peripheral vascular disease) (HCC); Left foot pain Start: 09-04-2018 End: 09-13-2018 Evaluation and management of inpatient Tiana Em Work Phone: [facility] Vascular Thoracic Surgery Comment on above: Ischemic foot (Prima ry Dx); PAD (peripheral artery disease) (HCC); Critical lower limb ischemia Start: 08-29-2018 Patient encounter procedure [facility] Start: 08-27-2018 Patient encounter procedure [facility] Start: 08-22-2018 Patient encounter procedure [facility] Start: 10-31-2016 End: 11-06-2016 Ambulatory EHAB Deanna TRUJILLO Facility:[facility] Start: 03-06-2014 End: 03-06-2014 Patient encounter [facility] Procedures Date Procedure Procedure Detail Performing Clinician Start: 04-15-2025 ALL CBC WITH AUTO DIFF Generic External Data Provider Start: 04-08-2025 HERPES SIMPLEX VIRUS 1 Zoë BROWER Work Phone: Start: 03-21-2025 Basic metabolic panel calcium total Muna Otto MD Work Phone: Start: 03-20-2025 Non-invas physiologic std extremity art 2 level Beena Barraza MD Work Phone: Start: 03-20-2025 Basic metabolic panel calcium total Muna Otto MD Work Phone: Start: 03-19-2025 Basic metabolic panel calcium total Muna Otto MD Work Phone: Start: 03-18-2025 Basic metabolic panel calcium total Muna Otto MD Work Phone: Start: 03-17-2025 Blood count hematocrit Ana Luisa Murray MD Work Phone: Start: 03-17-2025 Angiography extremity unilateral rs&i Mohsen Sarabia MD Work Phone: Start: 03-17-2025 End: 03-17-2025 Byp fem-ant tibl pst tibl proneal art/oth dstl Mohsen Sarabia MD Work Phone: Start: 03-17-2025 Glucose measurement [facility] Work Phone: Start: 03-17-2025 Basic metabolic panel calcium total Muna Otto MD Work Phone: Start: 03-16-2025 Thromboplastin time partial plasma/whole blood Ana Luisa Murray MD Work Phone: Start: 03-16-2025 Ecg routine ecg w/least 12 lds trcg only w/o i&r Ana Luisa Murray MD Work Phone: Start: 03-16-2025 Blood typing serologic abo Beena lyman MD Work Phone: Start: 03-16-2025 Prothrombin time Beena Barraza MD Work Phone: Start: 03-16-2025 Basic metabolic panel calcium total Muna Otto MD Work Phone: Start: 03-15-2025 Thromboplastin time partial plasma/whole blood Mary Mast MD Work Phone: Start: 03-15-2025 Blood count hematocrit Ana Luisa Murray MD Work Phone: Start: 03-15-2025 Basic metabolic panel calcium total Muna Otto MD Work Phone: Start: 03-14-2025 End: 03-14-2025 Dup-scan xtr veins unilateral/limited study Beena Barraza MD Work Phone: Start: 03-14-2025 Ecg routine ecg w/least 12 lds trcg only w/o i&r Muna Otto MD Work Phone: Start: 03-14-2025 Ecg routine ecg w/least 12 lds trcg only w/o i&r Demetrice Escobar CNP Work Phone: Start: 03-14-2025 Complete blood count with white cell differential, manual Dashawn Stallings PA-C Work Phone: Start: 03-14-2025 FRIEDMAN TOP Elaine Macdonald MD Work Phone: Start: 03-14-2025 LIGHT GREEN TOP Elaine Macdonald MD Work Phone: Start: 03-14-2025 PINK TOP Elaine Macdonald MD Work Phone: Start: 03-14-2025 Prothrombin time Dashawn Stallings PA-C Work Phone: Start: 03-14-2025 RAINBOW DRAW Elaine Macdonald MD Work Phone: Start: 03-14-2025 Follow-up visit Follow-up KEN JOHNSON Start: 03-12-2025 OR DSA (Angiogram) Right Leg Flash Lovelace MD Work Phone: Start: 03-12-2025 ELECTROPHYSIOLOGY REPORT Mohsen cifuentes MD Work Phone: Start: 01-09-2025 Urnls dip stick/tablet rgnt non-auto w/o micrscp Bhaskar Wilson NP Work Phone: Start: 11-04-2024 History of amputation of foot Acquired absence of left foot 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 [employer]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 Start: 07-11-2024 ALL BASIC METABOLIC PANEL Generic [employer] Equipment Installer al Data Provider Start: 07-11-2024 ALL CBC WITH AUTO DIFF Generic External Data Provider Start: 07-11-2024 ALL SED RATE Generic External Data Provider Start: 07-11-2024 MHPT DIFFERENTIAL Generic External Data Provider Start: 07-03-2024 ALL BASIC METABOLIC PANEL Generic Home [employer] Equipment Installer al Data Provider Start: 05-28-2024 History of coronary artery bypass grafting Hx of CABG Flash Lovelace MD Work Phone: Start: 05-14-2024 ALL MAGNESIUM Generic External Data Provider Start: 05-14-2024 [facility] TROPONIN I Generic External Data Provider Start: 05-14-2024 HMHP BASIC METABOLIC PANEL REFLEX MG Generic External Data Provider Start: 05-13-2024 ALL PROTIME/INR Generic External Data Provider Start: 10-12-2023 Angiography MD Flash Lovelace Work Phone: Start: 10-12-2023 Ultrasound (US) doppler flow mapping of vein of upper limb MD Flash Lovelace Work Phone: Start: 10-12-2023 US scan venography of lower limbs MD Flash Lovelace Work Phone: Start: 06-12-2023 Doppler ultrasonography of bilateral carotid arteries MD Flash Lovelace Work Phone: Start: 05-23-2023 Ankle brachial pressure index MD Flash mcgraw Work Phone: Start: 05-23-2023 Duplex scan of lower limb arteries MD Flash Lovelace Work Phone: Start: 04-09-2023 History of amputation of foot Status post amputation of foot Zoë BROWER Work Phone: Start: 11-08-2022 Radiologic exam chest single view Jose Escalona CABINET INSTALLER Work Phone: Start: 11-08-2022 Renal function panel Duke Claros MD Work Phone: Start: 11-07-2022 Assay of troponin quantitative Jass Barboza MD Work Phone: Start: 11-07-2022 Assay of troponin quantitative Jass Barboza MD Work Phone: Start: 11-07-2022 Ecg routine ecg w/least 12 lds trcg only w/o i&r Jass Barboza MD Work Phone: Start: 11-07-2022 Renal function panel Duke Claros MD Work Phone: Start: 11-06-2022 TTE w or wo fol wcon,Doppler Duke Claros MD Work Phone: Start: 11-06-2022 Renal function panel Duke Claros MD Work Phone: Start: 11-05-2022 Renal function panel Duke Claros MD Work Phone: Start: 11-04-2022 Radex humerus minimum 2 views Gustavo joseph CABINET INSTALLER Work Phone: Start: 11-04-2022 Renal function panel Duke Claros MD Work Phone: Start: 11-04-2022 End: 11-04-2022 Iaad ia mult step method nos each organism Duke Claros MD Work Phone: Start: 11-04-2022 Iadna s aureus methicillin resist amp probe tq Uri Downey PharmD Start: 11-04-2022 Polymerase chain reaction analysis Duke Claros MD Work Phone: Start: 11-04-2022 SARS-CoV-2 (COVID-19) RNA [Presence] in Respiratory specimen by OREN with probe detection Ronnie Montoya MD Work Phone: Start: 11-03-2022 Ct angiography chest w/contrast/noncontrast Sharron Khan PA-C Work Phone: Start: 11-03-2022 Assay of troponin quantitative Ronnie Montoya MD Work Phone: Start: 11-03-2022 Radiologic exam chest single view Aurelia Betancourtomis CABINET INSTALLER Work Phone: Start: 11-03-2022 Radex foot complete minimum 3 views Aurelia Betancourtomis CABINET INSTALLER Work Phone: Start: 11-03-2022 Dup-scan xtr veins complete bilateral study Aurelia Betancourtomis CABINET INSTALLER Work Phone: Start: 11-03-2022 Basic metabolic panel calcium total Aurelia Betancourtomis CABINET INSTALLER Work Phone: Start: 11-03-2022 C-reactive protein Aurelia Awilda Betancourtomis CABINET INSTALLER Work Phone: Start: 11-03-2022 FRIEDMAN TOP Triage Protocol Emergency MD Start: 11-03-2022 LIGHT BLUE TOP Triage Protocol Emergency MD Start: 11-03-2022 LIGHT GREEN TOP Triage Protocol Emergency MD Start: 11-03-2022 PINK TOP Triage Protocol Emergency MD Start: 11-03-2022 Ecg routine ecg w/least 12 lds trcg only w/o i&r Aurelia Kaiser Juana CABINET INSTALLER Work Phone: Start: 11-03-2022 End: 11-03-2022 RAINBOW DRAW Triage Protocol Emergency Start: 11-03-2022 URINE CONTAINER Triage Protocol Emergency Start: 11-03-2022 End: 11-03-2022 Urnls dip stick/tablet reagent auto microscopy Aurelia Tillman CABINET INSTALLER Work Phone: Start: 10-30-2022 Iadna respiratry probe & rev trnscr 12-25 target Dalila Arreguin MD Work Phone: Start: 10-30-2022 Radiologic exam chest single view Dalila Arreguin MD Work Phone: Start: 10-30-2022 DIFFERENTIAL Dalila Arreguin MD Work Phone: Start: 10-30-2022 End: 10-30-2022 Natriuretic peptide Dalila Arreguin MD Work Phone: Start: 10-11-[address] FLASH LOVELACE Comment on above: Performed By: #### PSAD #### [facility] [address] [place] [address] Dr. Benedict Edmondson Start: 04-25-2022 Ultrasound (US) doppler flow mapping of vein of upper limb MD Flash Lovelace Work Phone: Start: 04-25-2022 Ultrasound peripheral vascular flow study MD Flash Lovelace Work Phone: Start: 04-25-2022 Abdominal aortogram MD Flash Lovelace Work Phone: Start: 04-14-2022 SARS-CoV-2 (COVID-19) RNA [Presence] in Respiratory specimen by OREN with probe detection Carson Brock MD Work Phone: Start: 04-14-2022 Non-invas physiologic std extremity art 2 level Darrick Calixto DO Work Phone: Start: 04-14-2022 Cta abdl aorta&bi iliofem w/contrast&postp Darrick Calixto DO Work Phone: Start: 04-14-2022 Basic metabolic panel calcium total Mehnaz Rebecca Lamb PA-C Work Phone: Start: 04-14-2022 FRIEDMAN TOP Triage Protocol Emergency MD Start: 04-14-2022 LAVENDER TOP Triage Protocol Emergency MD Start: 04-14-2022 LIGHT GREEN TOP Triage Protocol Emergency MD Start: 04-14-2022 MINT GREEN TOP Triage Protocol Emergency MD Start: 04-14-2022 PINK TOP Triage Protocol Emergency MD Start: 04-14-2022 RAINBOW DRAW Triage Protocol Emergency MD Start: 01-21-2022 Blood count complete auto&auto difrntl wbc Parvez Mak MD Work Phone: Start: 01-20-2022 Basic metabolic panel calcium total Parvez Mak MD Work Phone: Start: 01-19-2022 Ct thorax w/o contrast material Parvez mullen MD Work Phone: Start: 01-19-2022 End: 01-19-2022 Electrocardiogram Provider Not In System Start: 01-19-2022 Basic metabolic panel calcium total Rodri Back DO Work Phone: Start: 01-19-2022 Cta abdl aorta&bi iliofem w/contrast&postp Rodri Arturo Back DO Work Phone: Start: 01-18-2022 Ecg routine ecg w/least 12 lds w/i&r Mikey Mcguire MD Work Phone: Start: 01-18-2022 End: 01-18-2022 Radex ankle complete minimum 3 views Amy BROWER-C Work Phone: Start: 01-18-2022 End: 01-18-2022 Basic metabolic panel calcium total Mehnaz BROWER-C Work Phone: Start: 01-18-2022 C-reactive protein Mehnaz Lamb PA-C Work Phone: Start: 01-18-2022 Culture bacterial blood aerobic w/id isolates Mehnaz Lamb PA-C Work Phone: Start: 01-18-2022 FRIEDMAN TOP Mikey Mcguire MD Work Phone: Start: 01-18-2022 LIGHT BLUE TOP Mikey Mcguire MD Work Phone: Start: 01-18-2022 LIGHT GREEN TOP Mikey Mcguire MD Work Phone: Start: 01-18-2022 OBTAIN VENOUS BLOOD GASES AND PERFORM Mehnaz Lamb PA-C Work Phone: Start: 01-18-2022 PINK TOP Mikey Mcguire MD Work Phone: Start: 01-18-2022 RAINBOW DRAW Mikey Mcguire MD Work Phone: Start: 01-18-2022 Ecg routine ecg w/least 12 lds w/i&r Sheet Metal Apprentice Generic Start: 03-16-2020 Carotid artery doppler assessment Mohsen Sarabia Work Phone: Start: 03-16-2020 Non-invas physiologic std extremity art 2 level Mohsen Sarabia Work Phone: Start: 10-21-2019 Cta abdl aorta&bi iliofem w/contrast&postp Mohsen Sarabia Work Phone: Start: 10-21-2019 Creatinine [Mass/volume] in Blood Mohsen Sarabia Work Phone: Start: 10-09-2019 Non-invas physiologic std extremity art 2 level Mohsen Sarabia Work Phone: Start: 10-09-2019 Dup-scan lxtr art/artl bpgs uni/lmtd study Mohsen Sarabia Work Phone: Start: 03-18-2019 Carotid artery doppler assessment Mohsen Sarabia Work Phone: Start: 03-13-2019 Non-invas physiologic std extremity art 2 level oMhsen Sarabia Work Phone: Start: 10-31-2018 Dup-scan lxtr art/artl bpgs uni/lmtd study Mohsen Sarabia Work Phone: Start: 10-31-2018 Non-invas physiologic std extremity art 2 level Mohsen Sarabia Work Phone: Start: 10-12-2018 Creatinine [Mass/volume] in Serum or Plasma Fatou Britton Start: 10-12-2018 Vancomycin [Mass/volume] in Serum or Plasma Edwina Browne Start: 10-11-2018 Vancomycin [Mass/volume] in Serum or Plasma Edwina Browne Start: 10-11-2018 Complete blood count (hemogram) panel - Blood by Automated count Stan Canseco Work Phone: Start: 10-11-2018 Creatinine [Mass/volume] in Serum or Plasma Fatou Britton Start: 10-10-2018 Esophagogastroduodenoscopy Ben Jensen Work Phone: Start: 10-10-2018 Procedure on tissue specimen Daniella Jensen Work Phone: Start: 10-10-2018 Endoscopy of esophagus Ben Jensen Work Phone: Start: 10-10-2018 Creatinine [Mass/volume] in Serum or Plasma Fatou Britton Start: 10-10-2018 Hemoglobin and Hematocrit panel - Blood Stan Canseco Work Phone: Start: 10-10-2018 Vancomycin [Mass/volume] in Serum or Plasma --trough Demetrice Gonzalezs Start: 10-10-2018 Hemoglobin and Hematocrit panel - Blood Stan Canseco Work Phone: Start: 10-10-2018 Hemoglobin and Hematocrit panel - Blood Stan Canseco Work Phone: Start: 10-09-2018 Radiologic exam chest single view Stan Canseco Work Phone: Start: 10-09-2018 Blood occult peroxidase actv qual other sources Stan Canseco Work Phone: Start: 10-09-2018 Complete blood count (hemogram) panel - Blood by Automated count Ofe Wood Work Phone: Start: 10-09-2018 Basic metabolic 2000 panel - Serum or Plasma Ofe Wood Work Phone: Start: 10-09-2018 Creatinine [Mass/volume] in Serum or Plasma Fatou Orlinski Start: 10-08-2018 Echocardiography Aaron Choi Work Phone: Start: 10-08-2018 Radiologic examination foot 2 views Ofe Wood Work Phone: Start: 10-08-2018 OXYGEN TITRATE Ofe Wood Work Phone: Start: 10-08-2018 Procedure on tissue specimen Flynn bragg [facility] [facility] Work Phone: Start: 10-08-2018 End: 10-08-2018 AMPUTATION TRANSMETATARSAL Flynn jasso [facility] Work Phone: Start: 10-08-2018 Basic metabolic 2000 panel - Serum or Plasma Ofe Wood Work Phone: Start: 10-08-2018 Complete blood count (hemogram) panel - Blood by Automated count Ofe Wood Work Phone: Start: 10-08-2018 INR in Platelet poor plasma by Coagulation assay Ofe Wood Work Phone: Start: 10-08-2018 Vancomycin [Mass/volume] in Serum or Plasma --trough Fatou Orlinski Start: 10-07-2018 Creatinine [Mass/volume] in Serum or Plasma Fatou Orlinski Start: 10-05-2018 Complete blood count (hemogram) panel - Blood by Automated count Lazaro Clifton Work Phone: Start: 10-05-2018 12 lead ECG Aaron Choi Work Phone: Start: 10-05-2018 Basic metabolic 2000 panel - Serum or Plasma Lzaaro Clifton Work Phone: Start: 10-04-2018 X-ray of left foot Lazaro Clifton Work Phone: Start: 10-04-2018 Complete blood count with white cell differential, automated Lazaro Clifton Work Phone: Start: 10-04-2018 Complete blood count with white cell differential, manual Lazaro Clifton Work Phone: Start: 10-04-2018 Erythrocyte sedimentation rate by Westergren method Lazaro Clifton Work Phone: Start: 10-04-2018 C reactive protein [Mass/volume] in Serum or Plasma Lazaro Clifton Work Phone: Start: 10-04-2018 Comprehensive metabolic 2000 panel - Serum or Plasma Lazaro Clifton Work Phone: Start: 10-04-2018 Hemoglobin A1c/Hemoglobin.total in Blood Lazaro Clifton Work Phone: Start: 09-20-2018 X-ray of left ankle Flynn Mann Work Phone: Start: 09-20-2018 X-ray of left foot Flynn Mann Work Phone: Start: 09-13-2018 Hemoglobin and Hematocrit panel - Blood Vianca Franco Work Phone: Start: 09-13-2018 Basic metabolic 2000 panel - Serum or Plasma Sanchovana B Rosalest Work Phone: Start: 09-13-2018 Complete blood count (hemogram) panel - Blood by Automated count Pacoa B Dianelyswat Work Phone: Start: 09-13-2018 INR in Platelet poor plasma by Coagulation assay Pacoa B Rosalest Work Phone: Start: 09-13-2018 Complete blood count (hemogram) panel - Blood by Automated count Tiana Em Work Phone: Start: 09-12-2018 Basic metabolic 2000 panel - Serum or Plasma Sanchovana B Saraswat Work Phone: Start: 09-12-2018 Complete blood count (hemogram) panel - Blood by Automated count Miryam Rincon Work Phone: Start: 09-12-2018 INR in Platelet poor plasma by Coagulation assay Miryam Rincon Work Phone: Start: 09-12-2018 Hemoglobin and Hematocrit panel - Blood Vianca Franco Work Phone: Start: 09-11-2018 Packed RBC preparation Miryam christie Work Phone: Start: 09-11-2018 Blood type and Indirect antibody screen panel - Blood Miryam Rincon Work Phone: Start: 09-11-2018 Basic metabolic 2000 panel - Serum or Plasma Miryam Rincon Work Phone: Start: 09-11-2018 Complete blood count (hemogram) panel - Blood by Automated count Miryam Rincon Work Phone: Start: 09-11-2018 INR in Platelet poor plasma by Coagulation assay Miryam Rincon Work Phone: Start: 09-11-2018 Complete blood count (hemogram) panel - Blood by Automated count Tiana Em Work Phone: Start: 09-10-2018 Electrocardiogram Provider Not In System Start: 09-10-2018 Non-invas physiologic std extremity art 2 level Esau Alejandro Work Phone: Start: 09-10-2018 Basic metabolic 2000 panel - Serum or Plasma Miryam Rincon Work Phone: Start: 09-10-2018 Complete blood count (hemogram) panel - Blood by Automated count Miryam Rincon Work Phone: Start: 09-10-2018 INR in Platelet poor plasma by Coagulation assay Miryam Rincon Work Phone: Start: 09-10-2018 Hemoglobin and Hematocrit panel - Blood Vianca Franco Work Phone: Start: 09-09-2018 Hemoglobin and Hematocrit panel - Blood Vianca Franco Work Phone: Start: 09-09-2018 Basic metabolic 2000 panel - Serum or Plasma Sanchovana B Dianelyswat Work Phone: Start: 09-09-2018 Complete blood count (hemogram) panel - Blood by Automated count Sanchovana B Dianelyswat Work Phone: Start: 09-09-2018 INR in Platelet poor plasma by Coagulation assay SanchoAI Merchanta B Rosalest Work Phone: Start: 09-08-2018 Basic metabolic 2000 panel - Serum or Plasma Nirvana B Dianelyswat Work Phone: Start: 09-08-2018 Complete blood count (hemogram) panel - Blood by Automated count SanchoAI Merchanta B Sergey Work Phone: Start: 09-08-2018 INR in Platelet poor plasma by Coagulation assay UB.a B Ziiosjeff Work Phone: Start: 09-08-2018 XR OR ANG ADD Mohsen Sarabia Work Phone: Start: 09-08-2018 Fluoroscopy up to 1 hour physician/qhp time Mohsne Sarabia Work Phone: Start: 09-07-2018 End: 09-08-2018 BYPASS PERONEAL FEMORAL Mohsen Hunt er Work Phone: Start: 09-07-2018 APTT - reference Vianca Franco Work Phone: Start: 09-07-2018 Radiologic exam chest single view Vianca Franco Work Phone: Start: 09-07-2018 APTT - reference Ben Hahn Work Phone: Start: 09-07-2018 Basic metabolic 2000 panel - Serum or Plasma Nirvana B Saraswat Work Phone: Start: 09-07-2018 Complete blood count (hemogram) panel - Blood by Automated count Miryam Rincon Work Phone: Start: 09-07-2018 INR in Platelet poor plasma by Coagulation assay Miryam Rincon Work Phone: Start: 09-07-2018 APTT - reference Vianca Rebeccahortensia Franco Work Phone: Start: 09-06-2018 Blood group typing Mohsen Sarabia Work Phone: Start: 09-06-2018 Complete blood count (hemogram) panel - Blood by Automated count Tiana Em Work Phone: Start: 09-06-2018 Blood type and Indirect antibody screen panel - Blood Miryam Rincon Work Phone: Start: 09-06-2018 Dup-scan xtr veins unilateral/limited study Esau Hortensia Flavia Work Phone: Start: 09-06-2018 Basic metabolic 2000 panel - Serum or Plasma Ben Hahn Work Phone: Start: 09-06-2018 Complete blood count (hemogram) panel - Blood by Automated count Ben Hahn Work Phone: Start: 09-05-2018 Cardiac catheterization Yasmeen Diaz Work Phone: Start: 09-05-2018 12 lead ECG Yasmeen Diaz Work Phone: Start: 09-05-2018 APTT - reference Tiana Em Work Phone: Start: 09-05-2018 Dup-scan lxtr art/artl bpgs uni/lmtd study Yasmeen Diaz Work Phone: Start: 09-05-2018 APTT - reference Tiana Em Work Phone: Start: 09-05-2018 Basic metabolic 2000 panel - Serum or Plasma Mirna Mckeon Work Phone: Start: 09-05-2018 Complete blood count (hemogram) panel - Blood by Automated count Mirna Mckeon Work Phone: Start: 09-05-2018 Radiographic imaging procedure Tiana Em Work Phone: Start: 09-05-2018 aPTT in Blood by Coagulation assay Tiana Jjer Work Phone: Start: 09-05-2018 Complete blood count (hemogram) panel - Blood by Automated count Tiana Jjer Work Phone: Start: 09-05-2018 FRIEDMAN TOP Tiana Jjer Work Phone: Start: 09-05-2018 LIGHT GREEN TOP Tiana Jjer Work Phone: Start: 09-05-2018 MINT GREEN TOP Tiana Jjer Work Phone: Start: 09-05-2018 PINK TOP Tiana Jjer Work Phone: Start: 09-05-2018 RAINBOW DRAW Tiana Jjer Work Phone: Start: 09-05-2018 12 lead ECG Tiana Em Work Phone: Start: 10-05-2010 Cystoscope, device (physical object) BRENNA MOSQUERA Start: 08-11-2010 Brachytherapy BRENNA MOSQUERA Start: 06-25-2010 Transrectal biopsy of prostate using ultrasound guidance BRENNA MOSQUERA Amputation of left foot SANDHYA PEREZ JAY Ankle Surgery BRENNA MOSQUERA Coronary artery bypass graft BRENNA MOSQUERA History of amputation of foot 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) Mikey Mcguire MD Work Phone: History of amputation of foot 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) Zoë BROWER Work Phone: Placement of stent i n cardiac conduit BRENNA JAY Comment on above: x7 Plan of Treatment Date Care Activity Detail Author Start: 09-30-2029 DTaP/Tdap/Td vaccine (2 - Td or Tdap) DTaP/Tdap/Td vaccine (2 - Td or Tdap) [facility] Start: 09-30-2029 Tetanus vaccination [facility] Start: 03-15-2026 Depression screening using PHQ-9 (Patient Health Questionnaire 9) score Depression Screening/Follow-Up (PHQ-2/9) [facility] Start: 04-28-2025 Influenza vaccination Influenza Vacc ine (#1) [facility] Start: 04-26-2025 Medicare Annual Well ness (AWV) Medicare Annual Wellness (AWV) [facility] Start: 04-24-2025 End: 04-24-2025 Patient encounter procedure 04/24/2025 1:00 PM EDT Office Visit [facility] [address] [facility] [address] [place] [address] Emmanuel Gonzalez, SHIRLEY [address] [facility] [address] [place] [address] [facility] Start: 04-14-2025 End: 04-14-2026 MR Foot - right WO contrast MR foot right wo IV contrast Imaging Routine Osteomyelitis of right foot, unspecified type (HCC) Expected: 04/14/2025, Expires: 04/14/2026 [facility] [employer] Work Phone: Comment on above: Expected: 04/14/2025 , Expires: 04/14/2026 Start: 04-08-2025 End: 04-08-2026 SUPERFICIAL WOUND (HTRX) SUPERFICIAL WOUND (HTRX) Lab Routine Ischemic toe ulcer, right, with 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) Expected: 04/08/2025 (Approximate), Expires: 04/08/2026 [facility] Work Phone: Comment on above: Expected: 04/08/2025 (Approximate), Expires: 04/08/2026 Start: 04-08-2025 End: 04-08-2025 Patient encounter procedure 04/08/2025 11:30 AM EDT Office Visit [facility] [address] [place] [address] Zoë King PA [address] [place] [address] Arrived [facility] Nadya Comment on above: Arrived Start: 03-14-2025 End: 03-14-[address] [facility] Start: 03-12-2025 [facility] Start: 03-12-2025 [facility] Start: 01-09-2025 End: 01-09-2026 Bacteria identified in Urine by Culture Urine culture (clean catch) Microbiology Routine Dysuria Expected: 01/09/2025 (Approximate), Expires: 01/09/2026 [facility] Comment on above: Expected: 01/09/2025 (Approximate), Expires: 01/09/2026 Start: 01-09-2025 End: 01-09-2026 Prostate specific Ag [Mass/volume] in Serum or Plasma PSA Lab Routine History of prostate cancer Expected: 01/09/2025 (Approximate), Expires: 01/09/2026 [facility] Work Phone: Comment on above: Expected: 01/09/2025 (Approximate), Expires: 01/09/2026 Start: 01-09-2025 End: 01-09-2025 Patient encounter procedure 01/09/2025 10:30 AM EDT Office Visit [facility] [address] [place] [id number] Bhaskar Wilson, [employer] [address] [place] [address] Arrived [facility] Comment on above: Arrived Start: 11-04-2024 End: 11-04-2024 Patient encounter procedure 11/04/2024 10:45 AM EDT Office Visit [facility] [address] [place] [address] Flash Lovelace MD [address] [place] [address] [facility] Start: 08-12-2024 End: 08-12-2024 Patient encounter procedure 08/12/2024 1:30 PM EST Office Visit [facility] [address] [place] [address] Flash Lovelace MD [address] [place] [address] [facility] Start: 07-29-2024 End: 07-29-2024 Patient encounter procedure 07/29/2024 10:00 AM EST Office Visit [facility] [address] [place] [address] Flash Lovelace MD [address] [place] [address] [facility] Start: 06-06-2024 History and physical examination, annual for health maintenance Wellness Visit [facility] Start: 06-06-2024 Medicare Annual Well ness (AWV) Medicare Annual Wellness (AWV) [facility] Start: 06-06-2024 Medicare Wellness Visit Medicare Wel lness Visit [facility] Start: 05-21-2024 End: 05-21-2024 Patient encounter procedure 05/21/2024 1:00 PM EDT Office Visit [facility] [address] [place] [address] Zoë King PA [address] [place] [address] Arrived [facility] Comment on above: Arrived Start: 04-28-2024 COVID-19 Vaccine ( season) COVID-19 Vaccine ( season) [facility] Start: 04-28-2024 Influenza vaccination Influenza Vacc ine (#1) [facility] Start: 04-26-2024 End: 04-26-2024 Patient encounter procedure 04/26/2024 9:30 AM EDT Office Visit [facility] [address] [facility] [address] [place] [address] Zoë King PA [address] [place] [address] Arrived [facility] Comment on above: Arrived Start: 10-12-2023 [facility] Start: 08-09-2023 End: 08-09-2023 Patient encounter procedure [facility] Start: 07-13-2023 End: 07-13-2023 Patient encounter procedure 07/13/2023 Office Visit Orthopaedics Scar Ortega, HEALTH PHYSICIST-CABINET INSTALLER [address] [place] [address] [facility] Start: 05-16-2023 End: 07-15-2024 Ultrasound ankle / brachial indices extremity complete Ultrasound ankle / brachial indices extremity complete Vascular Ultrasound Routine PAD (peripheral artery disease) ([facility]) Expected: 05/16/2023, Expires: 07/15/2024 [facility] Work Phone: Comment on above: Expected: 05/16/2023 , Expires: 07/15/2024 Start: 05-16-2023 End: 07-15-2024 US Duplex Bypass Graft Left LE US Duplex Bypass Graft Left LE Vascular Ultrasound Routine PAD (peripheral artery disease) (HCC) Expected: 05/16/2023, Expires: 07/15/2024 [facility] Comment on above: Expected: 05/16/2023 , Expires: 07/15/2024 Start: 04-28-2023 COVID-19 Vaccine ( season) COVID-19 Vaccine ( season) [facility] Start: 04-28-2023 COVID-19 VACCINE ( season) COVID-19 VACCINE ( season) [facility] Start: 04-28-2023 Influenza vaccination Sequenti al Influenza Vaccine (#1) [facility] Start: 10-30-2022 Annual Wellness Visi t (AWV) Annual Wellness Visit (AWV) [facility] Start: 07-14-2022 End: 07-14-2022 Patient encounter procedure 07/14/2022 Office Visit Orthopaedics Scar Ortega, HEALTH PHYSICIST-CABINET INSTALLER [address] [place] [address] [facility] Start: 05-25-2022 End: 07-25-2023 Carotid artery doppler assessment Carotid Duplex Vascular Ultrasound Routine Bilateral carotid artery stenosis Expected: 05/25/2022, Expires: 07/25/2023 [facility] Work Phone: Comment on above: Expected: 05/25/2022 , Expires: 07/25/2023 Start: 05-23-2022 End: 05-23-2022 Patient encounter procedure 05/23/2022 Office Visit Pulmonology Wagner Moon MD [address] [place] [address] [facility] Start: 05-11-2022 End: 02-25-2023 CT of chest without contrast CT Chest Without Contrast Imaging Routine Pulmonary nodule Expected: 05/11/2022, Expires: 02/25/2023 [facility] Work Phone: Comment on above: Expected: 05/11/2022 , Expires: 02/25/2023 Start: 05-11-2022 End: 05-11-2022 Patient encounter procedure 05/11/2022 Appointment Radiology Wagner Moon MD [address] [place] [address] [facility] CT Scan Start: 04-28-2022 Influenza vaccination Sequenti al Influenza Vaccine (#1) [facility] Start: 04-25-2022 [facility] Work Phone: Start: 01-19-2022 End: 01-19-[address] [facility] Start: 01-12-2022 End: 01-12-2022 Patient encounter procedure 01/12/2022 Office Visit Orthopaedics Dashawn Silvestre MD [address] [place] [address] [facility] Start: 11-29-2021 End: 11-29-2021 ambulatory 11/29/2021 Rehab Services Visit Physical Therapy Dashawn Silvestre MD [address] [place] [address] Andree Cronin, PT [address] [place] [address] [facility] [place] Start: 11-04-2021 COVID-19 Vaccine (4 - Booster for Moderna series) COVID-19 Vaccine (4 - Booster for Moderna series) [facility] Start: 11-04-2021 COVID-19 Vaccine (4 - Moderna series) COVID-19 Vaccine (4 - Moderna series) [facility] Start: 10-08-2021 History and physical examination, annual for health maintenance Wellness Visit [facility] Start: 04-28-2021 Influenza vaccination Sequenti al Influenza Vaccine (#1) [facility] Start: 04-06-2021 End: 06-06-2022 Carotid artery doppler assessment Carotid Duplex Vascular Ultrasound Routine Bilateral carotid artery stenosis Expected: 04/06/2021, Expires: 06/06/2022 [facility] Comment on above: Expected: 04/06/2021 , Expires: 06/06/2022 Start: 04-06-2021 End: 06-06-2022 Ultrasound ankle / brachial indices extremity complete Ultrasound ankle / brachial indices extremity complete Vascular Ultrasound Routine PAD (peripheral artery disease) ([facility]) Expected: 04/06/2021, Expires: 06/06/2022 [facility] Comment on above: Expected: 04/06/2021 , Expires: 06/06/2022 Start: 04-06-2021 End: 06-06-2022 Ultrasound duplex arterial leg left Ultrasound duplex arterial leg left Vascular Ultrasound Routine PAD (peripheral artery disease) (HCC) Expected: 04/06/2021, Expires: 06/06/2022 [facility] Comment on above: Expected: 04/06/2021 , Expires: 06/06/2022 Start: 03-30-2021 COVID-19 VACCINE (3 - Booster for Moderna series) COVID-19 VACCINE (3 - Booster for Moderna series) [facility] Start: 12-23-2020 COVID-19 Vaccine (3 - Booster for Moderna series) COVID-19 Vaccine (3 - Booster for Moderna series) [facility] Start: 09-30-2020 History and physical examination, annual for health maintenance Wellness Visit [facility] Start: 04-28-2020 Influenza vaccinatio n given Sequential Influenza Vaccine (#1) [facility] Start: 10-21-2019 End: 10-21-2019 Appointment 10/21/2019 Appointment Radiology Mohsen Sarabia MD [address] [facility] [address] [place] [address] [phone] [facility] [address] Start: 04-28-2019 Influenza vaccinatio n given SEQUENTIAL INFLUENZA VACCINE (#1) [facility] Start: 03-18-2019 End: 03-18-2019 Appointment 03/18/2019 Appointment Cardiology Mohsen Sarabia MD [address] [facility] [address] [place] [address] [phone] [facility] Start: 11-01-2018 End: 11-01-2018 Appointment [facility] Start: 10-31-2018 End: 10-31-2018 Appointment [facility] Start: 10-25-2018 End: 10-25-2018 Office Visit 10/25/2018 Office Visit Wound Care Flynn Mann, DPM [address] [place] [address] [phone] [facility] Start: 10-10-2018 End: 10-10-2018 Follow-Up 10/10/2018 Follow-Up Cardiothoracic Surgery Mohsen Sarabia MD [address] [facility] [address] [place] [address] [phone] [facility] Start: 10-04-2018 End: 10-04-2018 Office Visit 10/04/2018 Office Visit Wound Care Flynn Mann DPM [address] [place] [address] [phone] [facility] Start: 10-03-2018 End: 10-03-2018 Follow-Up 10/03/2018 Follow-Up Cardiothoracic Surgery Mohsen Sarabia MD [address] [facility] [address] [place] [address] [phone] [facility] Start: 09-20-2018 End: 09-20-2018 Office Visit 09/20/2018 Office Visit Wound Care Flynn aMnn DPM [address] [place] [address] [phone] [facility] Start: 04-28-2018 Influenza vaccinatio n given SEQUENTIAL INFLUENZA VACCINE (#1) [facility] Start: 05-18-2016 Pneumococcal vaccination PNEUM OCOCCAL VACCINE AGE 65+ (2 of 2 - PPSV23) [facility] Start: 07-13-2015 Pneumococcal Vaccine : Age 50+ (2 of 2 - PPSV23) Pneumococcal Vaccine: Age 50+ (2 of 2 - PPSV23) [facility] Start: 07-13-2015 Pneumococcal Vaccine : Age 50+ (2 of 2 - PPSV23, PCV20, or PCV21) Pneumococcal Vaccine: Age 50+ (2 of 2 - PPSV23, PCV20, or PCV21) [facility] Start: 07-13-2015 Pneumococcal Vaccine : Age 65+ (1 of 2 - PPSV23) Pneumococcal Vaccine: Age 65+ (1 of 2 - PPSV23) [facility] Start: 07-13-2015 Pneumococcal Vaccine : Age 65+ (2 - PPSV23 or PCV20) Pneumococcal Vaccine: Age 65+ (2 - PPSV23 or PCV20) [facility] Start: 07-13-2015 Pneumococcal Vaccine : Age 65+ (2 of 2 - PPSV23 or PCV20) Pneumococcal Vaccine: Age 65+ (2 of 2 - PPSV23 or PCV20) [facility] Start: 07-13-2015 Pneumococcal Vaccine : Age 65+ (2 of 2 - PPSV23) Pneumococcal Vaccine: Age 65+ (2 of 2 - PPSV23) [facility] Start: 2014 Respiratory Syncytia l Virus Immunization: Risk, 60-74 Risk, or 75+ (1 - 1-dose 75+ series) Respiratory Syncytial Virus Immunization: Risk, 60-74 Risk, or 75+ (1 - 1-dose 75+ series) [facility] Start: 01-04-2004 Fall risk assessment [facility] Start: 01-04-2004 Pneumococcal vaccination [facility] Start: 1989 Administration of he rpes zoster vaccine ZOSTER VACCINES (1 of 2) [facility] Start: 1989 Shingles vaccine (1 of 2) Shingles vaccine (1 of 2) [facility] Start: 1989 Zoster vaccine hzv l tatum for subcutaneous use ZOSTER (SHINGLES) VACCINE (1 of 2) [facility] Start: 01-04-1984 Colonoscopy COLORECTAL CAN CER SCREENING DISCUSSION [facility] Start: 01-04-1984 Screening for malign ant neoplasm of colon COLORECTAL CANCER SCREENING DISCUSSION [facility] Start: 1958 Third diphtheria, tetanus and acellular pertussis (DTaP) vaccination TDAP (ADULT) [facility] Start: 1957 Tetanus vaccination TETANUS [facility] Start: 1951 Adolescent depressio n screening assessment Depression Screening (PHQ9) [facility] Start: 1951 COVID-19 Vaccine (1) COVID-19 Vaccin e (1) [facility] Start: 1951 Depression Screen Depression Screen [facility] Start: 1951 Depression screening using PHQ-9 (Patient Health Questionnaire 9) score [facility] Start: 1949 Lipid panel Lipids [facility] Start: 1945 Pneumococcal vaccination PNEUM OCOCCAL VACCINE SERIES (1 - PCV) [facility] Start: 1942 History and physical examination, annual for health maintenance Wellness Visit [facility] Start: 1939 COVID-19 VACCINE (#1) COVID-19 VACCI NE (#1) [facility] Start: 1939 Fall risk assessment Falls Risk Asse ssment [facility] Start: 1939 Tetanus vaccination [facility] Bacteria identified in Blood by Culture Blood Culture Aerobic/Anaerobic Microbiology Routine 01/18/2022 9:05 PM EDT [facility] Work Phone: End: 01-08-2023 CT of chest without contrast CT Chest Without Contrast Imaging Routine Community acquired pneumonia of left lower lobe of lung 1 Occurrences starting 11/08/2022 until 01/08/2023 [facility] Work Phone: Comment on above: 1 Occurrences starti ng 11/08/2022 until 01/08/2023 Patient Education [facility] Work Phone: Patient referral [facility] Work Phone: Transfusion of red b lood cells Transfuse RBC STAT 09/11/2018 6:52 PM EST [facility] End: 09-20-2019 X-ray of left ankle XR Ankle Left 3+ Views (Standard) Routine Critical lower limb ischemia 1 Occurrences starting 09/20/2018 until 09/20/2019 [facility] Comment on above: 1 Occurrences starti ng 09/20/2018 until 09/20/2019 X-ray of left ankle XR Ankle Lef t 3+ Views (Standard) Routine Critical lower limb ischemia 09/20/2018 3:30 PM EST [facility] End: 09-20-2019 X-ray of left foot XR Foot Left 3+ Views (Standard) Routine Critical lower limb ischemia 1 Occurrences starting 09/20/2018 until 09/20/2019 [facility] Comment on above: 1 Occurrences starti ng 09/20/2018 until 09/20/2019 X-ray of left foot XR Foot Left 3+ Views (Standard) Routine Critical lower limb ischemia 09/20/2018 3:29 PM EST [facility] XR Pelvis and Hip - right Views XR HIP WITH PELVIS RIGHT Imaging Routine Pain in prosthetic joint, subsequent encounter 11/24/2021 9:21 AM [email or web address] Pel[facility] and [facility] - right Views XR HIP WITH PELVIS RIGHT Imaging Routine Hx of total hip arthroplasty, right 01/12/2022 8:59 AM EDT [employer] [facility] XR Pelvis and Hip - right Views XR HIP WITH PELVIS RIGHT Imaging Routine Hx of total hip arthroplasty, right 07/14/2022 10:44 AM EST [facility] XR Pelvis and Hip - right Views XR HIP WITH PELVIS RIGHT Imaging Routine Hx of total hip arthroplasty, right 08/10/2023 10:49 AM [facility] Immunizations Immunization Date Immunization Notes Care Provider Rolanda peter 08-12-2024 Influenza, High-dose Seasonal, Quadrivalent, Preservative Free Flash Lovelace MD Work Phone: [facility] 08-12-2024 influenza virus vacc ine, unspecified formulation Ludivina Garcia RN [facility] 06-06-2023 influenza virus vacc ine, unspecified formulation BRENNA JAY [facility] 06-06-2023 Influenza, High-dose Seasonal, Quadrivalent, Preservative Free Zoë Hemmer PA Work Phone: [facility] 05-31-2022 influenza virus vacc ine, unspecified formulation BRENNA JAY [facility] 05-31-2022 Influenza, High-dose Seasonal, Quadrivalent, Preservative Free Zoë Hemmer PA Work Phone: [facility] 09-09-2021 SARS-CoV-2 (COVID-19 ) [id number] vaccine BRENNA JAY [facility] 06-21-2021 influenza virus vacc ine, unspecified formulation BRENNA JAY [facility] 06-21-2021 influenza, high dose seasonal, preservative-free Zoë Hemmer PA Work Phone: [facility] 10-28-2020 SARS-CoV-2 (COVID-19 ) [id number] vaccine BRENNA JAY [facility] 10-08-2020 pneumococcal polysaccharide vaccine, 23 valent BRENNA MOSQUERA [facility] 09-30-2020 SARS-CoV-2 (COVID-19 ) [id number] vaccine BRENNA MOSQUERA [facility] Comment on above: Result Comment: 2023: [id number] 06-02-2020 influenza virus vacc ine, unspecified formulation BRENNA MOSQUERA [facility] 06-02-2020 influenza, high dose seasonal, preservative-free Zoë Hemmer PA Work Phone: [facility] 05-28-2020 influenza virus vacc ine, unspecified formulation BRENNA JAY [facility] 05-28-2020 influenza, seasonal, injectable Zoë Hemmer PA Work Phone: [facility] 05-28-2020 pneumococcal conjuga te vaccine, 13 valent BRENNA MOSQUERA [facility] 09-30-2019 tetanus toxoid, redu cole diphtheria toxoid, and acellular pertussis vaccine, adsorbed BRENNA MOSQUERA [facility] 06-18-2019 influenza virus vacc ine, unspecified formulation BRENNA JAY [facility] 06-18-2019 Seasonal trivalent influenza vaccine, adjuvanted, preservative free [facility] 06-06-2018 influenza virus vacc ine, unspecified formulation BRENNA JAY [facility] 06-06-2018 influenza, high dose seasonal, preservative-free Mohsen Walker [facility] 06-06-2018 Influenza, High-dose Seasonal, Quadrivalent, Preservative Free Zoë Hemmer PA Work Phone: [facility] 05-22-2017 influenza virus vacc ine, unspecified formulation BRENNA JAY [facility] 05-22-2017 influenza, injectabl e, quadrivalent, contains preservative Mohsen Sarabia [facility] 07-11-2016 influenza, injectabl e, quadrivalent, preservative free Zoë BROWER Work Phone: [facility] 05-18-2015 influenza virus vacc ine, unspecified formulation BRENNA MOSQUERA [facility] 05-18-2015 influenza, high dose seasonal, preservative-free Mohsen Sarabia [facility] 05-18-2015 pneumococcal conjuga te vaccine, 13 valent Mohsen Sarabia [facility] pneumococcal vaccine , unspecified formulation Mohsen Sarabia MD Work Phone: [facility] pneumococcal vaccine , unspecified formulation Uri Voss DO Work Phone: [facility] Payers Date Payer Category Payer Self-pay [id number] 2024 Unknown [id number] 2019 Private Health Insurance [id number] 2017 Medicare HUMANA MANAGED M [employer] HUMANA [facility] ADVANTAGE CHOICE PPO xxxxxxxxx 2017-Present xxxxxxxxx [id number] 2017 Medicare HUMANA MANAGED M [employer]NA [facility] ADVANTAGE CHOICE PPO [id number] 2017-Present [id number] [id number] 2017 Medicare [id number]. [id number] 2017 Medicare (Managed Care) HUMANA M EDICARE ADVANTAGE [id number] 2017 Medicare PPO [id number] [id number]. [id number] 1959 Unknown [id number] 1939 Unknown [id number] 2.16.840.1.975430.3.579. 2.90 1939 Unknown [id number] 2.16.840.1.810291.3.579. 2.902 1939 Unknown [id number] 2.16.840.1.760187.3.579. 2.90 1939 Unknown [id number] 2.16.840.1.058942.3.579. 2.903 1939 Unknown [id number] 2.16.840.1.737815.3.579. 2.754 1939 Unknown [id number] 2.16.840.1.100680.3.579. 2.593 1939 Unknown [id number] 2.16.840.1.752432.3.579. 2.593 1939 Unknown [id number] 2.16.840.1.192088.3.579. 2.593 1939 Unknown [id number] 2.16.840.1.830397.3.579. 2.59 1939 Unknown [id number] 2.16.840.1.446638.3.579. 2.983 1939 Unknown [id number] 2.16.840.1.045160.3.579. 2.98 1939 Unknown [id number] 2.16.840.1.677311.3.579. 2.727 1939 Unknown [id number] 2.16.840.1.383558.3.579. 2.173 1939 Unknown [id number] 2.16.840.1.818832.3.579. 2.903 1939 Unknown [id number] 2.16.840.1.837058.3.579. 2.903 1939 Unknown [id number] 2.16.840.1.858685.3.579. 2. 1939 Unknown [id number] 2.16.840.1.084509.3.579. 2.900 1939 Unknown [id number] 2.16.840.1.316432.3.579. 2.900 1939 Unknown [id number] 2.16.840.1.207528.3.579. 2.900 1939 Unknown [id number] 2.16.840.1.604984.3.579. 2.1258 1939 Unknown [id number] 2.16.840.1.936350.3.579. 2.1258 1939 Unknown [id number] 2.16.840.1.336260.3.579. 2.1258 1939 Unknown [id number] 2.16.840.1.248720.3.579. 2.1258 1939 Unknown [id number] 2.16.840.1.129836.3.579. 2.1258 1939 Unknown [id number] 2.16.840.1.060465.3.579. 2.1258 1939 Unknown [id number] 2.16.840.1.274587.3.579. 2.1258 1939 Unknown [id number] 2.16.840.1.642229.3.579. 2.1259 1939 Unknown [id number] 2..840.1.754501.3.579. 2.1259 Unknown HCAP/HFA/FAP Active [id number] Unknown [id number] 2..840.1.673943.3.579. 2.531 Unknown [id number] 2.840.1.942075.3.579. 2.531 Unknown [id number] 2.16.840.1.392440.3.579. 2.531 Social History Date Type Detail Facility Start: 09-10-2018 End: 06-21-2024 Tobacco smoking status NHIS Never smoker [facility] Start: 1940 Sex Assigned At Not on file [facility] Start: 10-09-2019 End: 04-14-2025 Alcohol intake Ex-drinker (finding) [facility] Start: 10-21-2019 End: 06-21-2024 Tobacco use and exposure Never used [facility] Start: 11-24-2021 End: 08-10-2023 Alcohol intake Current non-drinker of alcohol (finding) [facility] Start: 12-11-2021 End: 11-03-2022 Exposure to SARS-CoV-2 (event) Not sure [facility] Start: 09-04-2018 End: 06-21-2024 Cigarette pack-years [facility] Start: 11-30-2022 End: 06-21-2024 Sex Assigned At [facility] Start: 1940 Sex Assigned At Male [facility] Tobacco smoking status Never [facility] Start: 07-16-2018 Gender identity Identifies as [facility] (finding[facility] Start: 09-04-2018 Sexual orientation Heterosexual (finding) [facility] Start: 04-15-2023 Alcohol Comment Coffee 1-2 cups per day [facility] Within the last year , have you been afraid of your partner or ex-partner? No [facility] How often to you hav e a drink containing alcohol? Never [facility] Do you feel stress - tense, restless, nervous, or anxious, or unable to sleep at night because your mind is troubled all the time - these days [OSQ] Not at all [facility] (I/We) worried wheandrew er (my/our) food would run out before (I/we) got money to buy more. Never true [facility] Tobacco smoking stat [facility] Tobacco smoking consumption unknown [employer] Phone: Start: 10-31-2022 History SDOH Alcohol Frequency 1 [employer] Work Phone: Start: 10-31-2022 History SDOH Alcohol Std Drinks 0 [employer] Phone: How often do you nee d to have someone help you when you read instructions, pamphlets, or other written material from your doctor or pharmacy [SILS] Rarely [facility] Sex Male (finding) [facility] Medical Equipment Procedure Code Equipment Code Equipment Origin al Text Equipment Identifier Dates Hemostat 2 X 4in Surgicel Fibrillar - [id number] Start: 09-07-2018 Hemostat 2 X 4in Surgicel Fibrillar - [id number] Start: 09-07-2018 Hemostat 2 X 4in Surgicel Fibrillar - [id number] Start: 09-07-2018 Hemostat 2 X 4in Surgicel Fibrillar - [id number] Start: 09-07-2018 Hemostat 2 X 4in Surgicel Fibrillar - [id number] Start: 09-07-2018 Hemostat 2 X 4in Surgicel Fibrillar - [id number] Start: 09-07-2018 Hemostat 2 X 4in Surgicel Fibrillar - [id number] Start: 09-07-2018 Hemostat 2 X 4in Surgicel Fibrillar - [id number] Start: 09-07-2018 Hemostat 2 X 4in Surgicel Fibrillar - [id number] Start: 09-07-2018 Hemostat 2 X 4in Surgicel Fibrillar - [id number] Start: 09-07-2018 Hemostat 2 X 4in Surgicel Fibrillar - [id number] Start: 09-07-2018 Hemostat 2 X 4in Surgicel Fibrillar - [id number] Start: 09-07-2018 Hemostat 2 X 4in Surgicel Fibrillar - [id number] Start: 09-07-2018 Hemostat 2 X 4in Surgicel Fibrillar - [id number] Start: 09-07-2018 Hemostat 2 X 4in Surgicel Fibrillar - [id number] Start: 09-07-2018 Hemostat 2 X 4in Surgicel Fibrillar - [id number] Start: 09-07-2018 Hemostat 2 X 4in Surgicel Fibrillar - [id number] Start: 09-07-2018 Hemostat 2 X 4in Surgicel Fibrillar - [id number] Start: 09-07-2018 [place] Altrx Polyethylene Acetabular Liner Neutral 36mm Id 62mm Od [id number] Start: 07-15-2021 Angio-Seal 6f Vi p - [id number] FDA Start: 08-09-2018 [place] Lv 1x40 Single - [id number] Start: 07-15-2021 Hemostat 2 X 4in Surgicel Fibrillar - [id number] Start: 03-17-2025 Sealant 10ml Hemostatic Matrix Fast Prep Floseal W/Recothrom - [id number], [id number] FDA Start: 03-17-2025 Goals Date Patient Goal Desired Activity /State Comment on above: Formatting of this n ote might be different from the original. Short-Term: 1. The pt to report compliance and demonstrate independence with HEP to supplement PT intervention and achieve maximum rehabilitation potential. Long-Term: 2. The pt to report < 4/10 pain/discomfort with activities such as transfers, standing, ambulation, and bending to promote return to PLOF. 3. The pt to have 0 degrees R hip ext AROM to improve quality of standing posture and gait. 4. The pt to have at least 4+/5 strength of bilat hips to enable pt to perform all daily activities without difficulty or compensation. 5. The pt to ambulate all distances without antalgic deviations or compensations to promote return to PLOF. Functional Status Date Assessment Result Facility 04-14-2025 Patient Health Quest ionnaire 2 item (PHQ-2) [Reported] [facility] 04-08-2025 Patient Health Quest ionnaire 2 item (PHQ-2) [Reported] [facility] 03-31-2025 Patient Health Quest ionnaire 2 item (PHQ-2) [Reported] [facility] 01-09-2025 Patient Health Quest ionnaire 2 item (PHQ-2) [Reported] [facility] 12-26-2023 Functional Status N/A [facility] 12-20-2022 Functional Status N/A [facility] Clinical Notes 11-24-2021 to 04-14-2025 Flash Lovelace MD - 04/14/2025 1:45 PM EDHerberth Lovelace MD - 04/14/2025 1:37 PM Jeannie Lovelace MD - 04/14/2025 1:37 PM Jeannie Lovelace MD - 04/14/2025 1:30 PM EDTDischarge Instructions Note Date & Type Note Facility 04-14-2025 History of Present illness Narrative Associated Problem(s): Osteomyelitis of right foot (HCC) Will get stat MRI Will do stat Podiatry referral If worsens go to ER Currently no drainage Associated Problem(s): Ischemic toe ulcer, right, with 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) Needs to finish antibiotic and needs follow up with podiatry Associated Problem(s): PVD (peripheral vascular disease) with claudication Needs follow up with Vascular surgeon Images from the original note were not included. Attached media from the original note were not included. Subjective Patient ID: Tristin Powell is a 85 y.o. male who presents for Foot Ulcer. Tristin is present today for evaluation of possible infected toe. Admits right foot great toe is red, swollen, not as painful as it was last [...] Carotid artery disease Cataract 2014 Cellulitis 01/19/2022 [facility] Cellulitis LLE Colon polyps 2012 Critical lower limb ischemia ([facility]) 09/04/2018 Last Assessment & Plan: Pt s/p LLE angiogram with Dr Hahn who feels that the pt has no further endovascular options. He has consulted Dr. Sarabia for a possible tibial bypass. 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 Failure - [facility] History of being hospitalized [place] - [facility] 07/15/2021-07/16/2021 History of coronary angiogram [...] in the medial basilar segment of the left lower lobe. Scarring is favored. Recheck in 3 [...] 2009 SOB (shortness of breath) Unstable angina (HCC) 2014 XR 06/18/2019 XR shows impingement to left shoulder with Osteophyte spur Past Surgical History: Procedure Laterality Date ANGIOPLASTY with stent ANGIOPLASTY 03/17/2025 [facility]FA CARDIAC CATHETERIZATION CARDIAC SURGERY ECHO, Coronary Angiography, Percutaneous balloon angiography stent placement in LT & RT coronary artery CARPAL TUNNEL RELEASE Right 05/2020 CATARACT EXTRACTION W/ INTRAOCULAR LENS IMPLANT 2013 CERVICAL SPINE SURGERY 11/29/2019 julio cason COLONOSCOPY 03/16/2018 incomplete bowel prep Diverticulosis Dr. Rowe at [facility] COLONOSCOPY W/ POLYPECTOMY 2011 CORONARY ARTERY BYPASS GRAFT 11/09/2016 x3 CHAVEZ to diag, SVG to OM1, SVG to PDA CT ANGIOGRAM CHEST 12/17/2016 CT ANGIOGRAM CHEST 12/17/2016 FEMORAL BYPASS 09/07/2018 Left fem to peroneal bypass Dr. Sarabia FEMORAL BYPASS 03/14/2025 right SVG FOOT AMPUTATION Left 10/08/2018 mid foot HEART CATH 11/07/2016 Heart Cath. Blockage OTHER SURGICAL HISTORY brachytherapy OTHER SURGICAL HISTORY open reduction internal fixation OTHER SURGICAL HISTORY 08/09/[address] Vogt OTHER SURGICAL HISTORY 04/25/2022 Diagnostic LE catheterization Dr. Hahn CT MEDICATION MANAGEMENT 11/2020 Multi resistant Strep Pneumonia, [...] follow-ups on file. documented in this encounter [facility] 04-09-2025 Telephone encounter Note The incorrect test was run through [employer]. They said they did not receive the order electronically and then entered in the wrong test. They will fax a correction form that I have to sign, then the correct test will be run. She stated he will only be charged for the test that I ordered, not the add on that they ran in error. Spoke with Deena at [facility]. [facility] 04-09-2025 Miscellaneous Notes The incorrect test was run through [employer]. They said they did not receive the order electronically and then entered in the wrong test. They will fax a correction form that I have to sign, then the correct test will be run. She stated he will only be charged for the test that I ordered, not the add on that they ran in error. Spoke with Deena at [facility]. documented in this encounter [facility] 04-08-2025 History of Present illness Narrative Images from the original note were not included. Subjective Patient ID: Tristin Powell is a 85 y.o. male who presents for possible infected toe. Tristin is present today for evaluation of possible infected toe. Admits right foot great toe is red, swollen, painful. He states he went in for a vein bypass about 10 days ago in his right leg and when he came out of surgery his toe was blue and last Yang his toenail came off. He also has discoloration in his 3rd toenail also. States he feels it is improving since the toenail came off. States Mohsen Sarabia did see his toe, but the toenail [...] Carotid artery disease Cataract 2014 Cellulitis 01/19/2022 [facility] Cellulitis LLE Colon polyps 2012 Critical lower limb ischemia ([facility]) 09/04/2018 Last Assessment & Plan: Pt s/p LLE angiogram with Dr Hahn who feels that the pt has no further endovascular options. He has consulted Dr. Sarabia for a possible tibial bypass. Pt s/p LLE critical limb ischemia Atkinson class 4 rest pain with distal discoloration to his toes Gangrene of left foot ([facility]) 10/04/2018 Groin hematoma 2013 RT Femoral groin Hematoma H/O myocardial perfusion scan 07/09/2019 LVEF 56% Myocardial perfusion imaging shows a defect in Apical wall Herpes zoster 09/04/2011 History of being hospitalized 12/06/2020 Strep Pneumonia, Resp. Failure - [facility] History of being hospitalized [place] - [facility] 07/15/2021-07/16/2021 History of coronary angiogram [...] in the medial basilar segment of the left lower lobe. Scarring is favored. 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 syndrome, CABGx3 Prostate cancer ([facility]) 2009 SOB (shortness of breath) Unstable angina ([facility]) 2014 XR 06/18/2019 XR shows impingement to left shoulder with Osteophyte spur Past Surgical History: Procedure Laterality Date ANGIOPLASTY with stent ANGIOPLASTY 03/17/2025 SFA CARDIAC CATHETERIZATION CARDIAC SURGERY ECHO, Coronary Angiography, Percutaneous balloon angiography stent placement in LT & RT coronary artery CARPAL TUNNEL RELEASE Right 05/2020 CATARACT EXTRACTION W/ INTRAOCULAR LENS IMPLANT 2014 CERVICAL SPINE SURGERY 11/29/2019 julio cason COLONOSCOPY 03/16/2018 incomplete bowel prep Diverticulosis Dr. Rowe at [facility] COLONOSCOPY W/ POLYPECTOMY 2011 CORONARY ARTERY BYPASS GRAFT 11/09/2016 x3 CHAVEZ to diag, SVG to OM1, SVG to PDA CT ANGIOGRAM CHEST 12/17/2016 CT ANGIOGRAM CHEST 12/17/2016 FEMORAL BYPASS 09/07/2018 Left fem to peroneal bypass Dr. Sarabia FEMORAL BYPASS 03/14/2025 right SVG FOOT AMPUTATION Left 10/08/2018 mid foot HEART CATH 11/07/2016 Heart Cath. Blockage OTHER SURGICAL HISTORY brachytherapy OTHER SURGICAL HISTORY open reduction internal fixation OTHER SURGICAL HISTORY 08/09/[address] Vogt OTHER SURGICAL HISTORY 04/25/2022 Diagnostic LE catheterization Dr. Hahn CT MEDICATION MANAGEMENT 11/2020 Multi resistant Strep Pneumonia, susceptible Levaquin PROSTATE BIOPSY 2010 TOTAL HIP ARTHROPLASTY 07/15/2021 Direct anterior right total hip arthroplasty, periarticular injection, right hip fluoroscopy XA SPECIAL ANGIOGRAPHY PROCEDURE Bilateral 10/12/2023 Dr. Sanchez Visit Vitals BP 146/68 Pulse 70 Resp 18 Ht 6' 2 Wt 244 lb 3.2 oz SpO2 98% BMI 31.35 kg/m Smoking Status Never BSA 2.41 m Review of Systems Constitutional: Negative for chills, [...] reach out to his vascular surgeon, Dr. Mohsen Sarabia, to update her on what we discussed [...] Care, Podiatry for follow up, obtained a culture of the wound today for send out, and [...] Medication Follow Up. documented in this encounter [facility] 04-02-2025 Note I saw Mr. Powell today in office for a postoperative follow-up [...] foot. He has a periungual right hallux ulceration which she has been keeping a dry dressing on. He continues on his aspirin Xarelto and statin. BP 121/65 (BP Location: Right arm, Patient Position: Sitting, BP Cuff Size: X-large Adult) Pulse 68 Resp 12 Ht 6' 2 Wt 109.8 kg (242 lb) SpO2 92% BMI 31.07 kg/m NAD Breathing comfortably Surgical incisions all c/d/I Trace edema in the foot and ankle. Foot WWP Strong DP/PT doppler signals Toe painted with betadine and dry dressing A/P: f/u in 2-4 weeks with bilateral graft duplexes and ABIs. Continue with meticulous foot care and OMT. AUTHENTICATED BY MOHSEN SARABIA, ON 04/02/2025 12:15:56 [facility] 04-02-2025 History of Present illness Narrative I saw Mr. Powell today in office for a postoperative follow-up [...] foot. He has a periungual right hallux ulceration which she has been keeping a dry dressing on. He continues on his aspirin Xarelto and statin. BP 121/65 (BP Location: Right arm, Patient Position: Sitting, BP Cuff Size: X-large Adult) Pulse 68 Resp 12 Ht 6' 2 Wt 109.8 kg (242 lb) SpO2 92% BMI 31.07 kg/m NAD Breathing comfortably Surgical incisions all c/d/I Trace edema in the foot and ankle. Foot WWP Strong DP/PT doppler signals Toe painted with betadine and dry dressing A/P: f/u in 2-4 weeks with bilateral graft duplexes and ABIs. Continue with meticulous foot care and OMT. documented in this encounter [facility] 03-31-2025 History of Present illness Narrative Images from the original note were not included. Subjective Patient ID: Tristin Powell is a 85 y.o. male who presents for Hospital Follow-up. Pt had surgery on 03/12 then went to ER on the due to having foot pain he was then admitted till 03/21 Pt is getting better , pt does have HH and also will see the vascular dr on Monday Took Left cephalic vein. And did bypass. To Right leg. Overall getting better. Hospital Information ED, Hospital or [facility] Facility Discharge? Hospital Patient has been contacted within two business days of discharge Yes Diagnosis claudication, rightleg pain, PAD Discharge Date 03/21/25 Discharged To: Home Setting Discharge Hospital [facility] Engagement Call Start Time 1226 Admission Date 03/14/25 Medications Discharge medications reviewed and reconciled from hospital? Yes Is the patient having any side effects they believe may be caused by any medication additions or changes? No Does the patient have all medications ordered at discharge? Yes Is the patient taking all medications as directed (includes completed medication regime)? Yes Appointments Does the patient have a primary care provider? Yes [folloow up scheduled 03/31] Does the patient have any upcoming specialty appointments? No Self Management Does patient have home health? yes What is the home health agency? [facility] Has home health visited the patient within 72 hours of discharge? Yes Patient Teaching Does the patient have access to their discharge instructions? Yes What is the patient's perception of their health status since discharge? Improving Is the patient/caregiver able to teach back the hierarchy of who to call/visit for symptoms/problems? PCP, Specialist, Home Health nurse, Urgent Care, ED, 911 Yes Wrap Up Wrap Up Additional Comments pt had recent balloon angioplasty 03/12/2025,. presented to [facility] ED on 03/14/2025 from Vascular Surgery clinic with intractable right foot pain. Found to have critical right LE ischemia s/p distal SFA to peroneal bypass. Discharged home with outpatient therapy. Labs, U/S ankle, brachial, X-ray angio right lower extremity, U/S sephenous vein map, ECG, PT/INR Over the past 2 weeks, how often [...] (50 mg) before bedtime. 180 tablet 3 omeprazole (PriLOSEC) [address] capsule TAKE 1 CAPSULE EVERY DAY 90 capsule 3 ondansetron ODT (Zofran-ODT) 4 MG disintegrating tablet Take 1 tablet (4 mg) by mouth every 8 (eight) hours if needed for nausea or vomiting for up to 7 days 20 tablet 0 rivaroxaban (Xarelto) 2.5 MG tablet TAKE 1 TABLET TWICE DAILY 200 tablet 3 zolpidem (Ambien) 10 MG tablet Take 1 tablet (10 mg) by mouth as needed at bedtime for sleep 30 tablet 5 [DISCONTINUED] nitroglycerin (Nitrostat) 0.[address] 0.4 mg under the tongue every 5 (five) minutes if needed for chest pain. [DISCONTINUED] oxyCODONE-acetaminophen (Percocet) 5-325 MG tablet Take 1 tablet by mouth every 6 (six) hours if needed for severe pain or moderate pain 15 tablet 0 [DISCONTINUED] tamsulosin (Flomax) 0.4 MG 24 hr capsule TAKE 1 CAPSULE BY MOUTH DAILY 30 capsule 1 [DISCONTINUED] montelukast (Singulair) 10 MG tablet Take 1 tablet (10 mg) by mouth at bedtime (Patient not taking: Reported on 11/25/2024) 30 tablet 11 [DISCONTINUED] oxyCODONE-acetaminophen (Percocet) 5-325 MG tablet Take 1 tablet by mouth every 6 (six) hours if needed for severe pain or moderate pain No current facility-administered medications on file prior [...] 2009 Avascular necrosis of bone of hip ([facility]) 09/04/2011 Right hip Right hip CAD (coronary artery disease) 2013 Carotid artery disease Cataract 2014 Cellulitis 01/19/2022 [facility] Cellulitis LLE Colon polyps 2012 Critical lower limb ischemia ([facility]) 09/04/2018 Last Assessment & Plan: Pt s/p LLE angiogram with Dr Hahn who feels that the pt has no further endovascular options. He has consulted Dr. Sarabia for a possible tibial bypass. Pt s/p LLE critical limb ischemia Atkinson class 4 rest pain with distal discoloration to his toes Gangrene of left foot ([facility]) 10/04/2018 Groin hematoma 2014 RT Femoral groin Hematoma H/O myocardial perfusion scan 07/09/2019 LVEF 56% Myocardial perfusion imaging shows a defect in Apical wall Herpes zoster 09/04/2011 History of being hospitalized 12/06/2020 Strep Pneumonia, Resp. Failure - [facility] History of being hospitalized [place] - [facility] 07/15/2021-07/16/2021 History of coronary angiogram [...] in the medial basilar segment of the left lower lobe. Scarring is favored. Recheck in 3 [...] 2009 SOB (shortness of breath) Unstable angina (HCC) 2014 XR 06/18/2019 XR shows impingement to left shoulder with Osteophyte spur Past Surgical History: Procedure Laterality Date ANGIOPLASTY with stent ANGIOPLASTY 03/17/2025 SFA CARDIAC CATHETERIZATION CARDIAC SURGERY ECHO, Coronary Angiography, Percutaneous balloon angiography stent placement in LT & RT coronary artery CARPAL TUNNEL RELEASE Right 05/2020 CATARACT EXTRACTION W/ INTRAOCULAR LENS IMPLANT 2014 CERVICAL SPINE SURGERY 11/29/2019 julio cason COLONOSCOPY 03/16/2018 incomplete bowel prep Diverticulosis Dr. Rowe at [facility] COLONOSCOPY W/ POLYPECTOMY 2011 CORONARY ARTERY BYPASS GRAFT 11/09/2016 x3 CHAVEZ to diag, SVG to OM1, SVG to PDA CT ANGIOGRAM CHEST 12/17/2016 CT ANGIOGRAM CHEST 12/17/2016 FEMORAL BYPASS 09/07/2018 Left fem to peroneal bypass Dr. Sarabia FEMORAL BYPASS 03/14/2025 right SVG FOOT AMPUTATION Left 10/08/2018 mid foot HEART CATH 11/07/2016 Heart Cath. Blockage OTHER SURGICAL HISTORY brachytherapy OTHER SURGICAL HISTORY open reduction internal fixation OTHER SURGICAL HISTORY 08/09/[address] Vogt OTHER SURGICAL HISTORY 04/25/2022 Diagnostic LE catheterization Dr. Hahn CT MEDICATION MANAGEMENT 11/2020 Multi resistant Strep Pneumonia, susceptible Levaquin PROSTATE BIOPSY 2009 TOTAL HIP ARTHROPLASTY 07/15/2021 Direct anterior right total hip arthroplasty, periarticular injection, right hip fluoroscopy XA SPECIAL ANGIOGRAPHY PROCEDURE Bilateral 10/12/2023 Dr. Sanchez Visit Vitals BP 128/58 Pulse 72 Ht 6' 2 Wt 243 lb SpO2 96% BMI 31.20 kg/m Smoking Status Never BSA 2.4 m Review of Systems Constitutional: Negative. HENT: Negative. Eyes: Negative. Cardiovascular: Negative. Gastrointestinal: Negative. Genitourinary: Negative for decreased urine volume and dysuria. Difficulty starting a stream of urine, abd cramping feeling over bladder Skin: Negative. Neurological: Negative. Psychiatric/Behavioral: Negative. Endocrine: Negative. Allergic/Immunologic: Negative. Objective Physical Exam Vitals reviewed. Constitutional: Appearance: Normal appearance. HENT: Head: Normocephalic. Cardiovascular: Rate and Rhythm: Normal rate and regular rhythm. Pulses: Normal pulses. Pulmonary: Effort: Pulmonary effort is normal. Breath sounds: Normal breath sounds. Skin: Comments: Wounds from incisions healing nicely Neurological: General: No focal deficit present. Mental Status: He is alert and oriented to person, place, and time. Psychiatric: Mood and Affect: Mood normal. Assessment/Plan Problem List Items Addressed This Visit PVD (peripheral vascular disease) with claudication Medication choice and dosage is appropriate for [...] OARRS Report was reviewed for this patient. Relevant Medications nitroglycerin (Nitrostat) 0.4 MG SL tablet oxyCODONE-acetaminophen (Percocet) 5-325 MG tablet Other Visit Diagnoses History of prostate cancer Relevant Medications tamsulosin (Flomax) 0.4 MG 24 hr capsule Urinary hesitancy Relevant Medications tamsulosin (Flomax) 0.4 MG 24 hr capsule Follow up in about 3 months (around 07/01/2025) for Recheck, pain med f/u. Associated Problem(s): PVD (peripheral vascular disease) with claudication Medication choice and dosage is appropriate for [...] OARRS Report was reviewed for this patient. documented in this encounter [facility] 03-21-2025 History of Present illness Narrative Spiritual Care Progress Note Completed by: Froylan Higgins Person(s) Present During this Visit: Patient Time Spent in Direct Patient Care: 30 Narrative: This Expansion Envelope Maker Hand visited Tristin while rounding. 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 Expansion Envelope Maker Hand provided empathetic listening with supportive presence and compassionate care. Pt shared a narrative of illness and some life experiences. Pt expressed gratitude for scrap kettle tender's support and visit. Pt was informed about 20/03 availability of the Chaplains, and how to contact. Pastoral Care Team will remain available to provide emotional and spiritual care support PRN. Patients Response to Pastoral Care: Expressed Gratitude for Visit, Appeared to be well-engaged Planning for Future Visits: PRN Patient's Spiritual Needs Assessment 03/21/25 1600 Visit Background Visit With Patient Visit By Staff Expansion Envelope Maker Hand Visit Progression Introduction Visit Requested By Expansion Envelope Maker Hand Initiated Visit Source Expansion Envelope Maker Hand Initiated Visit Type Inpatient;Rounding Visit Circumstances and Events Routine Visit Visit Length (minutes) 30 Patient's Response to Pastoral Care Expressed Gratitude for Visit;Appeared to be well-engaged Visit Planning PRN Spiritual Assessment Assessed during this visit Confucianist Assessment Assessed during this visit Family assessment provided? Unable to asess during this visit Patient Spiritual Needs Assessment Sources of Connection Son;Daughter;Other (see comment) (family) Belief Practices Attends Confucianist Services Image of the Divine Answers Prayer;Comforter;Creator;Healer; Guide;Love;Listens Role of the Divine in Pt's Illness God's Will Spiritual Issues / Opportunities Seek Healing/Wholeness Expressed / Stated Feelings Expressed Gratitude;Expressed Hope Attitude Toward Illness Acceptance;Confidence Coping Mechanisms Trust in God/Higher Power;Family Support Caregive / Family Spiritual Issues Seek Healing/Wholeness Spiritual Diagnosis Awareness of the Sacred Facilitated Interventions Active Listening;Explored thoughts/feelings associated with current hospitalization Spiritual/Emotional Outcomes Acceptance;Appreciative Spiritual Plan of Care Focus on Wellness;Receive Comfort Patient Confucianist Needs Assessment Confucianist Connection Attends as Often as Able Confucianist Home Caodaism Adventist Connection Non-Adventist Place of Buddhist - Name [facility] [place] Confucianist Resources Hope/Trust in God;Prayer Confucianist Rituals [place];Prayer Expressed Outcome Expressed Gratitude;Expressed Hope Rev. Froylan Higgins MBA., Josephine, M.Div Staff Expansion Envelope Maker Hand, Pastoral Care [address] [address] Physical Therapy PHYSICAL THERAPY TREATMENT NOTE Skilled Therapy Needs After Discharge Anticipate Resolution of Current Assessment Limitations Including: Pain, Mechanical Barriers Are scale tester Therapy Services Needed After Discharge: Yes Intensity of scale tester Therapy: Up to 5 days per week Anticipated Duration of scale tester Therapy: Duration 7 - 10 days PT DME Recommendation: To be determined at next level of care Rehab Potential: Good, For goals Outcomes Measures Prior Function - Basic Mobility Raw Score: 24 Points Prior Function - Basic Mobility % Impaired: 0% AM-PAC Basic Mobility Raw Score: 18 Points AM-PAC Basic Mobility % Impaired: 40.47% Activity Tolerance Activity Tolerance: (40 minutes with rest breaks) Therapy Precautions Orthotic Devices: Yes Lower Extremity: AFO (Left leg) Weight Bearing Status: WFL General Rehab Precautions: Fall risk Balance Sitting Balance - Static: Independent, with back unsupported Sitting Balance - Dynamic: Modified independent, with unilateral LUE support, with back unsupported Sitting Balance Treatment: weight shifting anterior, weight shifting left, weight shifting right Skilled Intervention Provided: verbal cues, tactile cues, demonstration, facilitation, patient education For: efficient movement, postural alignment, sequencing of movement, weight shifting Resulting in: improved activity tolerance, improved awareness, improved balance reactions, improved functional independence, improved initiation, improved performance, decreased assistance required, decreased fall risk, decreased pain Standing Balance - Static: Contact guard assist, with device Careers Counsellor - Standing Static: wheeled walker Standing Balance - Dynamic: Contact guard assist, with device Careers Counsellor - Standing Dynamic: wheeled walker Skilled Intervention Provided: verbal cues, tactile cues, facilitation, patient education For: energy conservation, efficient movement, postural alignment, safe use of AD and/or equipment, sequencing of movement, weight shifting Resulting in: improved activity tolerance, improved awareness, improved balance reactions, improved functional independence, improved initiation, improved performance, improved safety, decreased fall risk, decreased pain, decreased reliance on device/support, reduced risk of secondary impairment(s) Bed Mobility Rolling: Supervision, Head of bed elevated Supine to Sit: Stand by assist, Head of bed elevated Sit to Supine: (Seated EOB post session with nursing notified) Careers Counsellor: bedrails, bed positioning mechanics Skilled Intervention Provided: verbal cues, provided step by step instructions, patient education For: LE management, LE positioning, UE positioning, efficient movement, proper body mechanics, weight shifting Resulting in: improved activity tolerance, improved balance, improved functional independence, improved performance, improved safety, decreased assistance required, decreased pain, reduced risk of secondary impairment(s) Transfers Sit to Stand: Minimal assist, Moderate assist (x3 from 2 surfaces) Bed to Chair: Contact guard assist Lateral Transfers: Contact guard assist, Minimal assist Careers Counsellor: wheeled walker Skilled Intervention Provided: verbal cues, tactile cues, demonstration, facilitation, monitoring patient response with activity, monitoring patient response with positional changes, provided step by step instructions, patient education For: LE positioning, UE positioning, controlled descent, efficient movement, fall prevention, postural alignment, proper body mechanics, safety during functional tasks, safe use of AD and/or equipment, sequencing of movement, weight shifting Resulting in: improved activity tolerance, improved awareness, improved balance, improved functional independence, improved performance, improved safety, decreasing fall risk, decreased reliance on device/support, reduced risk of secondary impairment(s) Car Transfers: Contact guard assist Careers Counsellor: wheeled walker Skilled Intervention Provided: verbal cues, tactile cues, demonstration, facilitation, monitoring patient response with activity, monitoring patient response with positional changes, provided step by step instructions, patient education For: LE management, LE positioning, UE positioning, controlled descent, energy conservation, postural alignment, safety during functional tasks, safe use of AD and/or equipment, sequencing of movement, weight shifting Resulting in: improved activity tolerance, improved balance, improved functional independence, improved performance, improved safety, decreased assistance required, decreased pain, decreased reliance on device/support, reduced risk of secondary impairment(s) Gait/Locomotion Gait Assistance: Contact guard assist, Minimal assist Assistive Device: wheeled walker Distance: 20 Feet Rest Breaks: Yes Rest Break Position: seated Rest Break Duration: 4 min (During trip to stairs) Additional Gait Trial 2: Yes Gait Assistance Trial 2: Minimal assist Assistive Device Trial 2: wheeled walker Distance Trial 2: 25 (Including stair navigation) Rest Breaks Trial 2: Yes Rest Break Position Trial 2: seated Rest Break Duration Trial 2: 3 min Additional Gait Trial 3: Yes Gait Assistance Trial 3: Contact guard assist, Minimal assist Assistive Device Trial 3: wheeled walker Distance Trial 3: 135 Rest Breaks Trial 3: Yes Rest Break Position Trial 3: seated Pattern: R impaired heel strike, L impaired heel strike, R decreased step length, L decreased step length, over reliance on upper extremities, forward flexed, decreased trunk rotation, shuffle, antalgic, decreased pamela (steps per minute) Gait Loss(es) of Balance: multidirectional, inconsistent, intermittent Environment/Terrain: open/community environment, multiple distractions Stair Management Technique: two rails, step-to pattern, forwards (Highly unsteady) Stair Management Assistance: Minimal assist, Moderate assist Number of Stairs: 3 Skilled Intervention Provided: verbal cues, tactile cues, demonstration, facilitation, provided step by step instructions, patient education For: device management and safe use of device, efficient movement, fall prevention, gait technique, improved posture, obstacle negotiation, proper body mechanics, weight shifting, stairs sequence/technique Resulting in: improved activity tolerance, improved awareness of gait impairments, improved efficiency, improved functional independence, increased insight into deficits, improved performance, improved safety, decreased assistance required, decreasing fall risk, decreased gait impairments, decreased pain, decreased reliance on device/support, reduced risk of secondary impairment(s) Exercise Additional Treatment Details Home Living Obtained Home Living and PLOF info from: Patient Lives With: (Brother. Brother is available to help as needed.) Type of Home: House Home Layout: One level Steps to enter home: Yes Rails to enter home: None Number of stairs to enter home: 1 Bathroom Shower/Tub: Tub/shower unit Bathroom Toilet: Raised Bathroom Equipment: Shower chair Mobility Equipment: (Reports no using AD but does own crutches, rollator and wheeled walker.) Prior Level of Function Level of [place] - Transfers/Ambulation/Mobility: Independent with functional transfers Level of [place] - ADLs: Independent Level of [place] - Homemaking: Independent Driving: Patient drives Vocational: Retired Leisure: Pt reported, enjoys fishing. For complete objective data, detailed plan of care and patient education refer to: PT Evaluation flowsheet, PT Evaluation and Treatment flowsheet, PT Treatment flowsheet, patient Plan of Care, Plan of Care progress note, and Patient Education. This note stands as the current Discharge Summary upon patient discharge from the hospital or completion of Physical Therapy Plan of Care. Cosigned by Naty Lopez PT at 03/21/2025 2:03 PM EDT Care Management Progress Note Date: 03/21/2025 Time: 8:56 AM Patient Name: Tristin Powell Date of : 1940 Discharge Plan: D/C Disposition: [facility] Facility Related to Current Admission?: Yes Plan A: Home Health Care Services Plan B: Home Discharging Transportation Plan: Transportation Type: Auto Discharge Plan Status: home vs SNF CM following for dc needs. Chart reviewed, patient last able to work with therapy 03/20, current recs are up to 5 with ampac of 19. Patient originally wanted to go home with [facility]. After discussion with attending physician, now open to snf placement. Patient walking 20 feet. Will obtain choices and send referrals. Patient will need precert once med ready. Patient nearing med readiness. If unable to secure SNF will plan for home going plan with [facility], will place hub order for therapy. Will continue to follow as patient progresses medically. Addendum [phone]: hub order placed for [facility] therapy. One accepted, likely plan for discharge later today once c accepted. Addendum 1551: patient now wanting OP therapy. Order placed, and updated liaison to cancel c order. Patient now med ready for discharge. Assessment and Background Information: Physical Therapy PHYSICAL THERAPY TREATMENT NOTE Skilled Therapy Needs After Discharge Anticipate Resolution of Current Assessment Limitations Including: Pain, Mechanical Barriers Are scale tester Therapy Services Needed After Discharge: Yes Intensity of scale tester Therapy: Up to 5 days per week Anticipated Duration of scale tester Therapy: Duration 7 - 10 days PT DME Recommendation: To be determined at next level of care Rehab Potential: Good, For goals Outcomes Measures Prior Function - Basic Mobility Raw Score: 24 Points Prior Function - Basic Mobility % Impaired: 0% AM-PAC Basic Mobility Raw Score: 19 Points AM-PAC Basic Mobility % Impaired: 36.99% Activity Tolerance Therapy Precautions Orthotic Devices: Yes Lower Extremity: AFO (Left leg) Weight Bearing Status: WFL General Rehab Precautions: Fall risk Balance Sitting Balance - Static: Independent Sitting Balance - Dynamic: Independent Standing Balance - Static: Contact guard assist, Minimal assist Careers Counsellor - Standing Static: wheeled walker Standing Balance - Dynamic: Contact guard assist, Minimal assist Careers Counsellor - Standing Dynamic: wheeled walker Skilled Intervention Provided: verbal cues, tactile cues, facilitation, patient education For: efficient movement, fall prevention, postural alignment Resulting in: increased insight into deficits, improved safety, reduced risk of secondary impairment(s), decreased fall risk Bed Mobility Rolling: Stand by assist, Head of bed elevated Supine to Sit: Stand by assist, Head of bed elevated Sit to Supine: (Pt ended session in recliner) Careers Counsellor: bedrails, bed positioning mechanics Transfers Sit to Stand: Moderate assist, 2 person assist (x1 from bed, x1 from toilet, x1 from recliner) Stand Pivot Transfers: Minimal assist Careers Counsellor: wheeled walker Skilled Intervention Provided: verbal cues, tactile cues, facilitation For: UE positioning, controlled descent, fall prevention, safe use of AD and/or equipment Resulting in: improved performance, improved safety, decreasing fall risk, reduced risk of secondary impairment(s) Toilet Transfers: Grab bars, Contact guard assist Gait/Locomotion Gait Assistance: Contact guard assist Assistive Device: wheeled walker Distance: 20 Feet (Limited by pain in RLE) Pattern: step through, forward flexed, decreased pamela (steps per minute) Skilled Intervention Provided: verbal cues, tactile cues, patient education For: device management and safe use of device, fall prevention, improved posture Resulting in: improved safety, decreasing fall risk, reduced risk of secondary impairment(s) Exercise Additional Treatment Details VSS with activity, activity limited by RLE pain. Home Living Obtained Home Living and PLOF info from: Patient Lives With: (Brother. Brother is available to help as needed.) Type of Home: House Home Layout: One level Steps to enter home: Yes Rails to enter home: None Number of stairs to enter home: 1 Bathroom Shower/Tub: Tub/shower unit Bathroom Toilet: Raised Bathroom Equipment: Shower chair Mobility Equipment: (Reports no using AD but does own crutches, rollator and wheeled walker.) Prior Level of Function Level of [place] - Transfers/Ambulation/Mobility: Independent with functional transfers Level of [place] - ADLs: Independent Level of [place] - Homemaking: Independent Driving: Patient drives Vocational: Retired Leisure: Pt reported, enjoys fishing. For complete objective data, detailed plan of care and patient education refer to: PT Evaluation flowsheet, PT Evaluation and Treatment flowsheet, PT Treatment flowsheet, patient Plan of Care, Plan of Care progress note, and Patient Education. This note stands as the current Discharge Summary upon patient discharge from the hospital or completion of Physical Therapy Plan of Care. Cosigned by Naty Lopez, PT at 03/21/2025 12:32 PM EDT [facility]/20/2025 Tristin Powell 1940 [id number] Assessment/Plan: Tristin Powell is a 85 y.o. male with a history of Peripheral Artery Disease s/p Bypass, Afib (Xarelto), Diastolic Heart Failure, Coronary Artery Disease s/p CABG, recent balloon angioplasty 03/12/2025,. presented to [facility] ED on 03/14/2025 from Vascular Surgery clinic with intractable right foot pain. Found to have critical right LE ischemia Critical right lower limb ischemia: History of PAD. Follows Dr. Beaver ([facility]) and Dr. Sarabia (Vascular Surgery) s/p left femoral to peroneal bypass using contralateral reverse greater saphenous vein and partial left foot amputation (09/07/2018 - Dr. Sarabia). S/p angiogram 03/12/25 (Dr. Beaver) with balloon of SFA. Arterial Duplex 03/14/25: 50-99% stenosis in the right mid superficial femoral artery. ABIs 03/14/25: With severe 1 small vessel disease of the right foot. Continued ASA, statin and heparin gtt. S/p Plavix. Resume home AC as able. S/p angiogram 03/17/25 with R SFA to peroneal bypass. Repeat ABIs 03/20/25 ordered. [facility] following. Acute on Chronic Pain Syndrome: with opiate dependence. Continued home Percocet with increased dose. S/p IV pain meds. CAD: Followed by [facility] s/p 3 vessel coronary artery bypass grafting in 2017 and 7 stents. Meds as above Chronic Diastolic Heart Failure: TTE 04/2024: LVEF 55% grade 1 diastolic dysfunction, moderate aortic regurgitation, moderate mitral regurgitation, mild tricuspid regurgitation. Appeared euvolemic on admission. Continued home losartan and lasix every other day. Paroxysmal Afib: Held home Xarelto on admit. Continued Lopressor. S/p heparin gtt, resumed xarelto. Valvular disease: Mild to moderate aortic valve regurg and mild to moderate mitral valve regurg, mild tricuspid and pulmonic valve regurg. Shown on echo 05/13/2024. Outpatient surveillance advised. Aortic root dilatation: 4.1 cm on echo. Patient surveillance Lymphopenia: Baseline WBC normal. WBC of 3.5 (ANC 1.9k) on 03/14/2025. WBC 4.27 03/16/2025 Prolonged QTc: 502-03/15/2025. Previously stable. Repeat 464. Monitor. CKD IIIa: Baseline SCr ~1.2, SCr 1.1 on 03/14/25. Monitored. Chronic Anemia: baseline Hgb ~11-13. Hgb of 13.2 (MCV 91) on 03/14/25. Asymptomatic bilateral carotid stenosis: No history of CVA. Shown on duplex 04/2024. AC/AP as above Insomnia: Continue zolpidem Prostate Cancer: s/p brachytherapy, reportedly in remission. COPD: no evidence of acute exacerbation on admit. Reduced Mobility: present prior to admission. PTOT. Class I Obesity: Body mass index is 32.1 kg/m . Recommended lifestyle changes. 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 Estimated discharge date: TBD pending placement Medically Ready for Discharge: no Subjective: Pt seen at bedside vitals reviewed. No acute events overnight. Doing well this morning. Pt still feeling weak and ongoing drowsiness. Will stop muscle relaxant to see if that helps. Discussed with pt and son bedside about dispo. He lives with his two brothers (in their 80s) and worried about mobility. Now agreeable to short SNF stay. Discussed with SW. Labs personally reviewed: BMP WNL, Hgb 10 Physical Exam: BP 139/69 (BP Location: Right arm, Patient Position: Lying) Pulse 87 Temp 98.1 F (36.7 C) (Oral) Resp (!) 22 Ht 6' 2 Wt 110.2 kg (242 lb 15.2 oz) SpO2 93% BMI 31.19 kg/m General: NAD Eyes: EOMI, sclera clear ENT: neck supple Cardiovascular: Regular rate, no murmur Respiratory: Clear to auscultation, symmetric air entry Gastrointestinal: Soft, non tender, non distended, positive bowel sounds Genitourinary: no CVA tenderness Musculoskeletal: no major joint deformity: RLE tired leg and comber tender to touch. Moving well with mild pain.: Decreased sensation in the foot. Warm. Left midfoot amputation Skin: warm, dry, no LE edema Neuro: Alert, oriented x3, no focal motor deficits Psych: Mood appropriate Current Medications: acetaminophen 650 mg Oral Q4H While awake aspirin 81 mg Oral Daily atorvastatin 80 mg Oral Nightly azelastine 1 spray Each Nare Daily cyclobenzaprine 10 mg Oral Q8H SADIA furosemide 20 mg Oral Every Other Day losartan 50 mg Oral Daily with lunch metoprolol tartrate 50 mg Oral BID pantoprazole 40 mg Oral Daily polyethylene glycol 17 g Oral Daily rivaroxaban 2.5 mg Oral BID tamsulosin 0.4 mg Oral After evening meal zolpidem 10 mg Oral Nightly Labs, Imaging and Studies reviewed: Results from last 7 days Lab Units 03/20/25 0438 03/19/25 0455 03/18/25 0401 WBC K/mcL 4.86 4.34* 5.05 HGB g/dL 10.0* 10.4* 10.5* HCT % 29.1* 27.8* 28.9* PLT K/mcL 167 148* 157 Results from last 7 days Lab Units 03/20/25 0438 03/19/25 0455 03/18/25 0401 SODIUM mmol/L 139 140 140 POTASSIUM mmol/L 4.1 5.0 4.1 CHLORIDE mmol/L 107 108 109* BICARB mmol/L 19* BUN mg/dL 18 CREATININE mg/dL 0.97 1.12 1.05 EGFR mL/min/1.73 m2 76 64 69 GLUCOSE mg/dL 97 109* 111* CALCIUM mg/dL 8.5 9.0 8.2* Results from last 7 days Lab Units 03/16/25 0907 03/14/25 1128 INR 1.1 1.1 VASCULAR SURGERY PROGRESS NOTE Patient Name: Tristin Powell Reason for Consult: RLE rest pain ASSESSMENT AND PLAN Tristin Powell is a 85 y.o. male with history of arotic stenosis, HTN, dyslipidemia, HFpEF, ascending/thoracic aortic aneurysm (4.[address] dated 04/2024), CAD (NSTEMI; s/p 3v CABG), paroxysmal a.fib, aortic & mitral valve disease, COPD, CKD stage 3, PAD, s/p left fem to peroneal bypass (2018, [facility]), left TMA who presented to [facility] on 03/14/2025 with worsening RLE pain and discoloration. Arterial Duplex (03/14/25): 50-99% stenosis in the right mid SFA YAMILE's (03/14/25): Right YAMILE is 0.50. Left YAMILE is 0.55. CTLI IV Aortic Stenosis -Admitted to medicine -s/p RLE distal SFA to peroneal bypass w/ reversed LUE cephalic vein, completion angio w/ diminutive runoff via peroneal (03/17, [facility]) -Regular diet -Continue to encourage UOOB, AAT, IS -Continue ASA 81 -Repeat ABIs this morning -Will discuss with Dr. Sarabia TREV COLEMAN MD General Surgery Resident, PGY-1 [facility] Please contact surgical editorial intern distribution designer 5PM-6AM and weekends - #[phone] VTS Pager - #[phone] Subjective NAEO. Has been ambulating. New bruising near R toe, discussed with patient that its likely a small clot that was dislodged during procedure, should slowly go away with AC. No other concerns. PHYSICAL EXAM VITALS BP 139/69 (BP Location: Right arm, Patient Position: Lying) Pulse 87 Temp 98.1 F (36.7 C) (Oral) Resp (!) 22 Ht 6' 2 Wt 110.2 kg (242 lb 15.2 oz) SpO2 93% BMI 31.19 kg/m PHYSICAL EXAM General: Awake and alert, no acute distress Head: Normocephalic, atraumatic Eyes: No scleral icterus, EOM grossly intact Neck: Trachea midline Cardiovascular: Hemodynamically stable, regular rate Pulmonary: Nonlabored breathing, equal chest rise Extremities: No obvious deformities. Doppler signal present in PT and peroneal of LLE. Motor and sensory intact Skin: Dry and intact, no obvious rash. R great toe with bruising on the medial surface and underneath the nail bed. Picture in chart. Neurological: LUU, no gross focal deficits GI: Abd soft, nondistended. IMAGING/LABS Interval imaging and laboratory results reviewed [facility] Progress Note 03/19/2025 Tristin Powell 1940 [id number] Assessment/Plan: Tristin Powell is a 85 y.o. male with a history of Peripheral Artery Disease s/p Bypass, Afib (Xarelto), Diastolic Heart Failure, Coronary Artery Disease s/p CABG, recent balloon angioplasty 03/12/2025,. presented to [facility] ED on 03/14/2025 from Vascular Surgery clinic with intractable right foot pain. Found to have critical right LE ischemia Critical right lower limb ischemia: History of PAD. Follows Dr. Beaver ([facility]) and Dr. Sarabia (Vascular Surgery) s/p left femoral to peroneal bypass using contralateral reverse greater saphenous vein and partial left foot amputation (09/07/2018 - Dr. Sarabia). S/p angiogram 03/12/25 (Dr. Beaver) with balloon of SFA. Arterial Duplex 03/14/25: 50-99% stenosis in the right mid superficial femoral artery. ABIs 03/14/25: With severe 1 small vessel disease of the right foot. Continued ASA, statin and heparin gtt. S/p Plavix. Resume home AC as able. S/p angiogram 03/17/25 with R SFA to peroneal bypass. Repeat ABIs pending, timing TBD. [facility] and Vascular Surgery following. Acute on Chronic Pain Syndrome: with opiate dependence. Continued home Percocet with increased dose. IV Dilaudid added, wean as able. CAD: Followed by [facility] s/p 3 vessel coronary artery bypass grafting in 2017 and 7 stents. Meds as above Chronic Diastolic Heart Failure: TTE 04/2024: LVEF 55% grade 1 diastolic dysfunction, moderate aortic regurgitation, moderate mitral regurgitation, mild tricuspid regurgitation. Appeared euvolemic on admission. Continued home losartan and lasix every other day. Paroxysmal Afib: Held home Xarelto on admit. Continued Lopressor. S/p heparin gtt, resumed xarelto. Valvular disease: Mild to moderate aortic valve regurg and mild to moderate mitral valve regurg, mild tricuspid and pulmonic valve regurg. Shown on echo 05/13/2024. Outpatient surveillance advised. Aortic root dilatation: 4.1 cm on echo. Patient surveillance Lymphopenia: Baseline WBC normal. WBC of 3.5 (ANC 1.9k) on 03/14/2025. WBC 4.27 03/16/2025 Prolonged QTc: 502-03/15/2025. Previously stable. Repeat 464 CKD IIIa: Baseline SCr ~1.2, SCr 1.1 on 03/14/25. Monitored. Chronic Anemia: baseline Hgb ~11-13. Hgb of 13.2 (MCV 91) on 03/14/25. Asymptomatic bilateral carotid stenosis: No history of CVA. Shown on duplex 04/2024. AC/AP as above Insomnia: Continue zolpidem Prostate Cancer: s/p brachytherapy, reportedly in remission. COPD: no evidence of acute exacerbation on admit. Reduced Mobility: present prior to admission. PTOT. Class I Obesity: Body mass index is 32.1 kg/m . Recommended lifestyle changes. Code Status: Full - confirmed with patient and son on admit DVT Prophylaxis: xarelto Medication Reconciliation: Reviewed using patient interview, paint laboratory technician Current living situation: home Expected Disposition: PT/OT rec up to 5 pt requesting home with [facility], following. Estimated discharge date: ~03/20/2025 Medically Ready for Discharge: no Subjective: Pt seen at bedside vitals reviewed. No acute events overnight. Got up with therapy yesterday, rec for SNF. Vascular planning repeat ABIs. Dose reduced IV pain meds. Pt declining SNF, wants home going plan, will continue to work with therapy. On high risk medication requiring frequent monitoring: IV pain meds Labs personally reviewed: BMP WNL, WBC 4.3, Hgb 10.4, Plt 148 Physical Exam: BP 133/62 (BP Location: Right arm, Patient Position: Lying) Pulse 94 Temp 98.6 F (37 C) (Oral) Resp 17 Ht 6' 2 Wt 110.2 kg (242 lb 15.2 oz) SpO2 95% BMI 31.19 kg/m General: NAD Eyes: EOMI, sclera clear ENT: neck supple Cardiovascular: Regular rate, no murmur Respiratory: Clear to auscultation, symmetric air entry Gastrointestinal: Soft, non tender, non distended, positive bowel sounds Genitourinary: no CVA tenderness Musculoskeletal: no major joint deformity: RLE tired leg and comber tender to touch. Moving well with mild pain.: Decreased sensation in the foot. Warm. Left midfoot amputation Skin: warm, dry, no LE edema Neuro: Alert, oriented x3, no focal motor deficits Psych: Mood appropriate Current Medications: acetaminophen 650 mg Oral Q4H While awake aspirin 81 mg Oral Daily atorvastatin 80 mg Oral Nightly azelastine 1 spray Each Nare Daily cyclobenzaprine 10 mg Oral Q8H SADIA furosemide 20 mg Oral Every Other Day losartan 50 mg Oral Daily with lunch metoprolol tartrate 50 mg Oral BID pantoprazole 40 mg Oral Daily polyethylene glycol 17 g Oral Daily rivaroxaban 2.5 mg Oral BID tamsulosin 0.4 mg Oral After evening meal zolpidem 10 mg Oral Nightly Labs, Imaging and Studies reviewed: Results from last 7 days Lab Units 03/19/25 0455 03/18/25 0401 03/17/25 2309 03/17/25 0353 WBC K/mcL 4.34* 5.05 -- 3.29* HGB g/dL 10.4* 10.5* 11.2* 11.0* HCT % 27.8* 28.9* 30.5* 33.1* PLT K/mcL 148* 157 -- 153 Results from last 7 days Lab Units 03/19/25 0455 03/18/25 0401 03/17/25 0353 SODIUM mmol/L 140 140 138 POTASSIUM mmol/L 5.0 4.1 4.1 CHLORIDE mmol/L 108 109* 106 BICARB mmol/L 24 19* 24 BUN mg/dL 22 18 16 CREATININE mg/dL 1.12 1.05 1.05 EGFR mL/min/1.73 m2 64 69 69 GLUCOSE mg/dL 109* 111* 90 CALCIUM mg/dL 9.0 8.2* 8.5 Results from last 7 days Lab Units 03/16/25 0907 03/14/25 1128 INR 1.1 1.1 VASCULAR SURGERY PROGRESS NOTE Patient Name: Tristin Powell Reason for Consult: RLE rest pain ASSESSMENT AND PLAN Tristin Powell is a 85 y.o. male with history of arotic stenosis, HTN, dyslipidemia, HFpEF, ascending/thoracic aortic aneurysm (4.[address] dated 04/2024), CAD (NSTEMI; s/p 3v CABG), paroxysmal a.fib, aortic & mitral valve disease, COPD, CKD stage 3, PAD, s/p left fem to peroneal bypass (2018, [facility]), left TMA who presented to [facility] on 03/14/2025 with worsening RLE pain and discoloration. Arterial Duplex (03/14/25): 50-99% stenosis in the right mid SFA YAMILE's (03/14/25): Right YAMILE is 0.50. Left YAMILE is 0.55. CTLI IV Aortic Stenosis -Admitted to medicine -s/p RLE distal SFA to peroneal bypass w/ reversed LUE cephalic vein, completion angio w/ diminutive runoff via peroneal (03/17, [facility]) -Regular diet -Continue to encourage UOOB, AAT, IS -Continue ASA 81 -Will discuss timing for repeat ABIs -Will discuss with Dr. Sarabia TREV COLEMAN MD General Surgery Resident, PGY-1 [facility] Please contact surgical editorial intern distribution designer 5PM-6AM and weekends - #[phone] VTS Pager - #[phone] Subjective NAEO. Was able to get up and moving yesterday, no other concerns. PHYSICAL EXAM VITALS BP 133/62 (BP Location: Right arm, Patient Position: Lying) Pulse 94 Temp 98.6 F (37 C) (Oral) Resp 17 Ht 6' 2 Wt 110.2 kg (242 lb 15.2 oz) SpO2 95% BMI 31.19 kg/m PHYSICAL EXAM General: Awake and alert, no acute distress Head: Normocephalic, atraumatic Eyes: No scleral icterus, EOM grossly intact Neck: Trachea midline Cardiovascular: Hemodynamically stable, regular rate Pulmonary: Nonlabored breathing, equal chest rise Extremities: No obvious deformities. Doppler signal present in PT and peroneal of LLE. Motor and sensory intact Skin: Dry and intact, no obvious rash Neurological: LUU, no gross focal deficits GI: Abd soft, nondistended. IMAGING/LABS Interval imaging and laboratory results reviewed Anesthesia Progress Note 1 Day Post-Op Procedure(s): RIGHT FEMORAL TO TIBIAL BYPASS WITH ARM VEIN. Angiogram Assessment / Plan Comment: In no acute distress. Awake and alert. Denies post-op nausea, vomiting or sore throat. Questions addressed. Temp: [36.4 C-37.7 C] 36.8 C Heart Rate: [64-91] 86 Resp: [11-24] 18 BP: (120-166)/(46-88) 136/56 Arterial Line BP: (107-182)/(32-61) 127/36 SpO2: [96 %-100 %] 98 % Physical Therapy PHYSICAL THERAPY RE-EVALUATION and TREATMENT NOTE PHYSICAL THERAPY RE-EVALUATION Physical Therapy Assessment A Physical Therapy Re-Evaluation was performed today due to a change in patient's condition requiring an updated plan of care. Patient now s/p vascular sx requiring new goals d/t current deficits. Please refer to the Physical Therapy Plan of Care for updates to previously established goals. Skilled Therapy Needs After Discharge Anticipate Resolution of Current Assessment Limitations Including: Mechanical Barriers, Social Support Are scale tester Therapy Services Needed After Discharge: Yes Intensity of scale tester Therapy: Up to 5 days per week Anticipated Duration of scale tester Therapy: Duration 10 - 30 days PT DME Recommendation: To be determined at next level of care Rehab Potential: Good, For goals Outcomes Measures Prior Function - Basic Mobility Raw Score: 24 Points Prior Function - Basic Mobility % Impaired: 0% AM-PAC Basic Mobility Raw Score: 10 Points AM-PAC Basic Mobility % Impaired: 71.92% Activity Tolerance Activity Tolerance: Tolerates 10 - 20 min activity with multiple rests Therapy Precautions Orthotic Devices: Yes Lower Extremity: Prosthesis (L foot with lower leg component, previous foot amp) Weight Bearing Status: WFL General Rehab Precautions: Fall risk Balance Assessment Sitting Balance - Static: Stand by assist Sitting Balance - Dynamic: Stand by assist, Contact guard assist Standing Balance - Static: (unable to assess) Bed Mobility Rolling: Contact guard assist, Head of bed elevated Supine to Sit: Minimal assist, Head of bed elevated Sit to Supine: Minimal assist, Head of bed flat Careers Counsellor: bedrails, patient slide sheet / friction-reducing device, bed positioning mechanics Transfers Sit to Stand: (unable) Home Living Obtained Home Living and PLOF info from: Patient Lives With: (Brother. Brother is available to help as needed.) Type of Home: House Home Layout: One level Steps to enter home: Yes Rails to enter home: None Number of stairs to enter home: 1 Bathroom Shower/Tub: Tub/shower unit Bathroom Toilet: Raised Bathroom Equipment: Shower chair Mobility Equipment: (Reports no using AD but does own crutches, rollator and wheeled walker.) Prior Level of Function Level of [place] - Transfers/Ambulation/Mobility: Independent with community ambulation, Independent with household ambulation, Independent with functional transfers Level of [place] - ADLs: Independent Level of [place] - Homemaking: Independent Driving: Patient drives Vocational: Retired PHYSICAL THERAPY TREATMENT NOTE Total Treatment Time (Total Session Time): 20 Minutes Total Timed Code Treatment Minutes: 10 Minutes Neuromuscular Reeducation Sitting Balance Treatment: weight shifting anterior, weight shifting posterior, maintaining midline orientation, upright gaze (attempts at scooting) Skilled Intervention Provided: verbal cues, tactile cues, environmental setup/modification, patient education For: attention to task, UE positioning, efficient movement, initiation of tasks, postural alignment, midline orientation Resulting in: improved initiation, improved safety, improved attention, improved awareness Therapeutic Activities Bed Mobility Skilled Intervention Provided: verbal cues, tactile cues, monitoring patient response with activity, monitoring patient response with positional changes, provided step by step instructions, patient education For: UE positioning, attention to task, LE positioning, efficient movement, initiation of task, postural alignment, proper body mechanics Resulting in: improved performance, improved safety, increased initiation in mobility task(s) Therapeutic Exercises Seated Exercises: some ADLs and ther ex while seated EOB - limited RLE mobility d/t pain Skilled Intervention Provided: verbal cues, instruction on proper technique/alignment, patient education For: attention to task, frequency of exercise(s), efficient movement, energy conservation, postural alignment, midline orientation Resulting in: improved initiation, improved safety, improved performance Additional Treatment Details Pt cooperative but hesitant to mobility d/t RLE pain. Discussed benefits of therapy and progession of rehab post sx. VSS on room air. Pt able to tolerate sitting EOB ~10 mins, however, when preparing to stand with walker, pt declining to progress stating his pain was too bad. Pt also unable to scoot laterally d/t pain in RLE. Past Medical History: Diagnosis Date Arthritis Avascular necrosis of bone of hip ([facility]) Claudication COPD (chronic obstructive pulmonary disease) ([facility]) Coronary artery disease Herpes zoster Hyperlipidemia Hypertension PAD (peripheral artery disease) ([facility]) 01/21/2022 Posterior tibial tendinitis of right leg 11/07/2022 Prostate cancer ([facility]) Vascular disease Past Surgical History: Procedure Laterality Date 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/08/2018 Procedure: LEFT MIDFOOT AMPUTATION; Surgeon: Flynn Mann DPM; Location: [facility]; Service: Podiatry ANKLE SURGERY Left BYPASS FEMOROTIBIAL REPAIR/GRAFT Right 03/17/2025 Procedure: RIGHT FEMORAL TO TIBIAL BYPASS WITH ARM VEIN. 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 This note stands as the current Discharge Summary upon patient discharge from the hospital or completion of Physical Therapy Plan. [facility] Progress Note 03/18/2025 Tristin Powell 1940 [id number] Assessment/Plan: Tristin Powell is a 85 y.o. male with a history of Peripheral Artery Disease s/p Bypass, Afib (Xarelto), Diastolic Heart Failure, Coronary Artery Disease s/p CABG, recent balloon angioplasty 03/12/2025,. presented to [facility] ED on 03/14/2025 from Vascular Surgery clinic with intractable right foot pain. Found to have critical right LE ischemia Critical right lower limb ischemia: History of PAD. Follows Dr. Beaver ([facility]) and Dr. Sarabia (Vascular Surgery) s/p left femoral to peroneal bypass using contralateral reverse greater saphenous vein and partial left foot amputation (09/07/2018 - Dr. Sarabia). S/p angiogram 03/12/25 (Dr. Beaver) with balloon of SFA. Arterial Duplex 03/14/25: 50-99% stenosis in the right mid superficial femoral artery. ABIs 03/14/25: With severe 1 small vessel disease of the right foot. Continued ASA, statin and heparin gtt. S/p Plavix. Resume home AC as able. S/p angiogram 03/17/25 with R SFA to peroneal bypass. Peripheral Vascular Cardiology and Vascular Surgery following. Acute on Chronic Pain Syndrome: with opiate dependence. Continued home Percocet with increased dose. IV Dilaudid added. CAD: Followed by [facility] s/p 3 vessel coronary artery bypass grafting in 2017 and 7 stents. Meds as above Chronic Diastolic Heart Failure: TTE 04/2024: LVEF 55% grade 1 diastolic dysfunction, moderate aortic regurgitation, moderate mitral regurgitation, mild tricuspid regurgitation. Appeared euvolemic on admission. Continued home losartan and lasix every other day. Paroxysmal Afib: Held home Xarelto. Continued Lopressor. Initiated heparin gtt Valvular disease: Mild to moderate aortic valve regurg and mild to moderate mitral valve regurg, mild tricuspid and pulmonic valve regurg. Shown on echo 05/13/2024. Outpatient surveillance advised. Aortic root dilatation: 4.1 cm on echo. Patient surveillance Lymphopenia: Baseline WBC normal. WBC of 3.5 (ANC 1.9k) on 03/14/2025. WBC 4.27 03/16/2025 Prolonged QTc: 502-03/15/2025. Previously stable. Repeat 464 CKD IIIa: Baseline SCr ~1.2, SCr 1.1 on 03/14/25. Monitored. Chronic Anemia: baseline Hgb ~11-13. Hgb of 13.2 (MCV 91) on 03/14/25. Asymptomatic bilateral carotid stenosis: No history of CVA. Shown on duplex 04/2024. AC/AP as above Insomnia: Continue zolpidem Prostate Cancer: s/p brachytherapy, reportedly in remission. COPD: no evidence of acute exacerbation on admit. Reduced Mobility: present prior to admission. PTOT. Class I Obesity: Body mass index is 32.1 kg/m . Recommended lifestyle changes. 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 Estimated discharge date: ~03/20/2025 Medically Ready for Discharge: no Subjective: Pt seen at bedside new to me. Vitals reviewed. No acute events overnight. S/p revascularization yesterday. Doing well since procedure. Pain controlled. Denies new sensation changes. Planned to work with PT/OT today. Likely need for placement. On high risk medication requiring frequent monitoring: IV pain meds Physical Exam: BP (!) 147/57 Pulse 84 Temp 99.7 F (37.6 C) (Oral) Resp 15 Ht 6' 2 Wt 110.2 kg (242 lb 15.2 oz) SpO2 93% BMI 31.19 kg/m General: NAD Eyes: EOMI, sclera clear ENT: neck supple Cardiovascular: Regular rate, no murmur Respiratory: Clear to auscultation, symmetric air entry Gastrointestinal: Soft, non tender, non distended, positive bowel sounds Genitourinary: no CVA tenderness Musculoskeletal: no major joint deformity: RLE tired leg and comber tender to touch. Moving well with mild pain.: Decreased sensation in the foot. Warm. Left midfoot amputation Skin: warm, dry, no LE edema Neuro: Alert, oriented x3, no focal motor deficits Psych: Mood appropriate Current Medications: acetaminophen 650 mg Oral Q4H While awake aspirin 81 mg Oral Daily atorvastatin 80 mg Oral Nightly azelastine 1 spray Each Nare Daily cyclobenzaprine 10 mg Oral Q8H SADIA furosemide 20 mg Oral Every Other Day losartan 50 mg Oral Daily with lunch metoprolol tartrate 50 mg Oral BID pantoprazole 40 mg Oral Daily polyethylene glycol 17 g Oral Daily tamsulosin 0.4 mg Oral After evening meal zolpidem 10 mg Oral Nightly Labs, Imaging and Studies reviewed: Results from last 7 days Lab Units 03/18/25 0401 03/17/25 2309 03/17/25 0353 03/16/25 0328 WBC K/mcL 5.05 -- 3.29* 4.27* HGB g/dL 10.5* 11.2* 11.0* 12.0* HCT % 28.9* 30.5* 33.1* 36.7* PLT K/mcL 157 -- 153 159 Results from last 7 days Lab Units 03/18/25 0401 03/17/25 0353 03/16/25 0328 SODIUM mmol/L 140 138 141 POTASSIUM mmol/L 4.1 4.1 4.3 CHLORIDE mmol/L 109* 106 106 BICARB mmol/L 19* 24 24 BUN mg/dL 18 16 20 CREATININE mg/dL 1.05 1.05 1.11 EGFR mL/min/1.73 m2 69 69 65 GLUCOSE mg/dL 111* 90 105* CALCIUM mg/dL 8.2* 8.5 9.0 Results from last 7 days Lab Units 03/16/25 0907 03/14/25 1128 INR 1.1 1.1 ORTHO SOFT GOODS NOTE Rooke boots Item not provided by [facility] staff. Obtain from [facility], nursing to place VASCULAR SURGERY PROGRESS NOTE Patient Name: Tristin Powell Reason for Consult: RLE rest pain ASSESSMENT AND PLAN Tristin Powell is a 85 y.o. male with history of arotic stenosis, HTN, dyslipidemia, HFpEF, ascending/thoracic aortic aneurysm (4.[address] dated 04/2024), CAD (NSTEMI; s/p 3v CABG), paroxysmal a.fib, aortic & mitral valve disease, COPD, CKD stage 3, PAD, s/p left fem to peroneal bypass (2019, [facility]), left TMA who presented to [facility] on 03/14/2025 with worsening RLE pain and discoloration. Arterial Duplex (03/14/25): 50-99% stenosis in the right mid SFA YAMILE's (03/14/25): Right YAMILE is 0.50. Left YAMILE is 0.55. CTLI IV Aortic Stenosis -Admitted to medicine -s/p RLE distal SFA to peroneal bypass w/ reversed LUE cephalic vein, completion angio w/ diminutive runoff via peroneal (03/17, [facility]) -Diet as tolerated -Discontinue qureshiyoly -UOOB, AAT, IS -Continue ASA 81 -Will discuss with Dr. Sarabia TREV COLEMAN MD General Surgery Resident, PGY-2 [facility] Please contact surgical editorial intern distribution designer 5PM-6AM and weekends - #[phone] VTS Pager - #[phone] Subjective NAEO. Feels good this morning. Wants to try to walk. PHYSICAL EXAM VITALS BP (!) 147/57 Pulse 78 Temp 99.7 F (37.6 C) (Oral) Resp (!) 20 Ht 6' 2 Wt 110.2 kg (242 lb 15.2 oz) SpO2 93% BMI 31.19 kg/m PHYSICAL EXAM General: Awake and alert, no acute distress Head: Normocephalic, atraumatic Eyes: No scleral icterus, EOM grossly intact Neck: Trachea midline Cardiovascular: Hemodynamically stable, regular rate Pulmonary: Nonlabored breathing, equal chest rise Extremities: No obvious deformities. Doppler signal present in PT and peroneal of LLE. Motor and sensory intact Skin: Dry and intact, no obvious rash Neurological: LUU, no gross focal deficits GI: Abd soft, nondistended. IMAGING/LABS Interval imaging and laboratory results reviewed VASCULAR SURGERY PROGRESS NOTE Patient Name: Tristin Powell ASSESSMENT AND PLAN Tristin Powell is a 85 y.o. male with history of arotic stenosis, HTN, dyslipidemia, HFpEF, ascending/thoracic aortic aneurysm (4.[address] dated 04/2024), CAD (NSTEMI; s/p 3v CABG), paroxysmal a.fib, aortic & mitral valve disease, COPD, CKD stage 3, PAD, s/p left fem to peroneal bypass ([facility], [facility]), left TMA who presented to [facility] on 03/14/2025 with worsening RLE pain and discoloration. Now s/p Right SFA to the peroneal bypass using left reverse cephalic vein on 03/[address] Sarabia. CTLI IV Aortic Stenosis - s/p RLE distal SFA to peroneal bypass w/ reversed LUE cephalic vein, completion angio w/ diminutive runoff via peroneal - Diet: Clear liquids, advance as tolerated -As needed pain and nausea control -Rooke boot to RLE -Bedrest tonight -Maintain qureshi overnight -Continue to elevate LUE Abi Walker MD General Surgery Please contact surgical editorial intern distribution designer 5PM-6AM and weekends VTS Pager - #[phone] SUBJECTIVE Patient is resting in bed with LUE elevated. Reports some pain at his right hip. Denies Numbness or tingling in his lower extremity. Denies nausea or vomiting currently. PHYSICAL EXAM VITALS BP (!) 165/63 (BP Location: Right arm, Patient Position: Lying) Pulse 88 Temp 99.9 F (37.7 C) (Oral) Resp 18 Ht 6' 2 Wt 110.2 kg (242 lb 15.2 oz) SpO2 96% BMI 31.19 kg/m PHYSICAL EXAM General: Awake and alert, no acute distress Head: Normocephalic, atraumatic Eyes: No scleral icterus, EOM grossly intact Neck: Trachea midline, soft Cardiovascular: Hemodynamically stable, regular rate, RLE DP and peroneal pulses are dopplerable Pulmonary: Nonlabored breathing, equal chest rise Extremities: No obvious deformities, warm and well perfused Skin: Dry and intact, no obvious rash Neurological: LUU, no gross focal deficits GI: Abd soft, no abdominal TTP, non-distended, no peritoneal signs Wound: Incisions C/D/I, RLE and LUE coverlets clean and dry IMAGING/LABS Recent diagnostic imaging/reports reviewed. Pertinent findings may be listed below. Please correlate with formal radiology reads. Care Management Progress Note Date: 03/17/2025 Time: 10:23 AM Patient Name: Tristin Powell Date of : 1940 Discharge Plan: D/C Disposition: Home Health Care Services Related to Current Admission?: Yes Plan A: Home Health Care Services Plan B: Home Discharging Transportation Plan: Transportation Type: Auto Discharge Plan Status: Care management following. Rvwd chart. OT recs pending at this time. Pt agreeable to C if recommended and has no agency preference. Per Vasc Surg, pt scheduled for OR today for LLE fem-tib bypass today. Continuing to follow as medical plan evolves. [facility] and [facility] Tristin Powell 1940 [id number] Assessment/Plan: Tristin Powell is a 85 y.o. male with a history of Peripheral Artery Disease s/p Bypass, Afib (Xarelto), Diastolic Heart Failure, Coronary Artery Disease s/p CABG, recent balloon angioplasty 03/12/2025,. presented to [facility] ED on 03/14/2025 from Vascular Surgery clinic with intractable right foot pain. Found to have critical right LE ischemia Critical right lower limb ischemia: History of PAD. Follows Dr. Beaver ([facility]) and Dr. Sarabia (Vascular Surgery) s/p left femoral to peroneal bypass using contralateral reverse greater saphenous vein and partial left foot amputation (09/07/2018 - Dr. Sarabia). S/p angiogram 03/12/25 (Dr. Beaver) with balloon of SFA. Arterial Duplex 03/14/25: 50-99% stenosis in the right mid superficial femoral artery. ABIs 03/14/25: With severe 1 small vessel disease of the right foot. Continued aspirin, statin and heparin gtt. S/p Plavix. Resume home AC as able. Angiogram planned 03/17/25. Peripheral Vascular Cardiology and Vascular Surgery following. Preop clearance: CABG history with A-fib. Referred to [facility] cardiology. Acute on Chronic Pain Syndrome: with opiate dependence. Continued home Percocet with increased dose. IV Dilaudid added. CAD: Followed by [facility] s/p 3 vessel coronary artery bypass grafting in 2017 and 7 stents. Meds as above Chronic Diastolic Heart Failure: TTE 04/2024: LVEF 55% grade 1 diastolic dysfunction, moderate aortic regurgitation, moderate mitral regurgitation, mild tricuspid regurgitation. Appeared euvolemic on admission. Continued home losartan and lasix every other day. Paroxysmal Afib:: Held home Xarelto. Continued Lopressor. Initiated heparin gtt Valvular disease: Mild to moderate aortic valve regurg and mild to moderate mitral valve regurg, mild tricuspid and pulmonic valve regurg. Shown on echo 05/13/2024. Outpatient surveillance advised. Aortic root dilatation: 4.1 cm on echo. Patient surveillance Lymphopenia: Baseline WBC normal. WBC of 3.5 (ANC 1.9k) on 03/14/2025. WBC 4.27 03/16/2025 Prolonged QTc: 502-03/15/2025. Previously stable. Repeat 464 CKD IIIa: Baseline SCr ~1.2, SCr 1.1 on 03/14/25. Monitored. Chronic Anemia: baseline Hgb ~11-13. Hgb of 13.2 (MCV 91) on 03/14/25. Asymptomatic bilateral carotid stenosis: No history of CVA. Shown on duplex 04/2024. AC/AP as above Insomnia: Continue zolpidem Prostate Cancer: s/p brachytherapy, reportedly in remission. COPD: no evidence of acute exacerbation on admit. Reduced Mobility: present prior to admission. PTOT. Class I Obesity: Body mass index is 32.1 kg/m . Recommended lifestyle changes. 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 Estimated discharge date: 03/20/2025 Medically Ready for Discharge: no - needs revascularization plan *Alonzo (son) updated at bedside 03/15/25 Subjective: Seen at bedside. Reports that pain has worsened and is requiring more medications EKG tracing personally reviewed Qtc 464 Hb dropped to 11 from 12 On hep gtt-high risk medication. Needs closer monitoring. Planning revascularization today. Discussed with cardiology's physician personally about preop clearance. They will be doing it shortly. No official cardiology consult needed. On IV Dilaudid. High risk medication. Needs closer monitoring-Percocet and IV Dilaudid dose increased Physical Exam: BP 136/65 (BP Location: Right arm, Patient Position: Lying) Pulse 68 Temp 98.1 F (36.7 C) (Oral) Resp 16 Ht 6' 2 Wt 110.2 kg (242 lb 15.2 oz) SpO2 92% BMI 31.19 kg/m General: NAD Eyes: EOMI, sclera clear ENT: neck supple Cardiovascular: Regular rate, no murmur Respiratory: Clear to auscultation, symmetric air entry Gastrointestinal: Soft, non tender, non distended, positive bowel sounds Genitourinary: no CVA tenderness Musculoskeletal: no major joint deformity: RLE tired leg and comber tender to touch. Moving well with mild pain.: Decreased sensation in the foot. Warm. Left midfoot amputation Skin: warm, dry, no LE edema Neuro: Alert, oriented x3, no focal motor deficits Psych: Mood appropriate Current Medications: acetaminophen 650 mg Oral Q4H While awake aspirin 81 mg Oral Daily atorvastatin 80 mg Oral Nightly azelastine 1 spray Each Nare Daily furosemide 20 mg Oral Every Other Day losartan 50 mg Oral Daily with lunch metoprolol tartrate 50 mg Oral BID pantoprazole 40 mg Oral Daily polyethylene glycol 17 g Oral Daily tamsulosin 0.4 mg Oral After evening meal zolpidem 10 mg Oral Nightly Labs, Imaging and Studies reviewed: Results from last 7 days Lab Units 03/17/25 0353 03/16/25 0328 03/15/25 1002 03/15/25 0305 WBC K/mcL 3.29* 4.27* -- 3.23* HGB g/dL 11.0* 12.0* 12.4* 11.7* HCT % 33.1* 36.7* 31.0* 34.9* PLT K/mcL 153 159 -- 144* Results from last 7 days Lab Units 03/17/25 0353 03/16/25 0328 03/15/25 0305 SODIUM mmol/L 138 141 141 POTASSIUM mmol/L 4.1 4.3 3.9 CHLORIDE mmol/L 106 106 108 BICARB mmol/L 24 24 24 BUN mg/dL 16 20 19 CREATININE mg/dL 1.05 1.11 1.12 EGFR mL/min/1.73 m2 69 65 64 GLUCOSE mg/dL 90 105* 139* CALCIUM mg/dL 8.5 9.0 8.9 Results from last 7 days Lab Units 03/16/25 0907 03/14/25 1128 INR 1.1 1.1 ORTHO SOFT GOODS NOTE Heel/Rooke boot Item not provided by [facility] staff. Obtain from [facility], nursing to place VASCULAR SURGERY PROGRESS NOTE Patient Name: Tristin Powell Reason for Consult: RLE rest pain ASSESSMENT AND PLAN Tristin Powell is a 85 y.o. male with history of arotic stenosis, HTN, dyslipidemia, HFpEF, ascending/thoracic aortic aneurysm (4.[address] dated 04/2024), CAD (NSTEMI; s/p 3v CABG), paroxysmal a.fib, aortic & mitral valve disease, COPD, CKD stage 3, PAD, s/p left fem to peroneal bypass (2019, [facility]), left TMA who presented to [facility] on 03/14/2025 with worsening RLE pain and discoloration. Arterial Duplex (03/14/25): 50-99% stenosis in the right mid SFA YAMILE's (03/14/25): Right YAMILE is 0.50. Left AYMILE is 0.55. CTLI IV Aortic Stenosis -Admitted to medicine -Patient added on for LLE fem-tib bypass w/ Dr. Sarabia tomorrow -Okay for diet as tolerated, NPO mn -Will pause heparin gtt OCTOR -Continue ASA 81, do not restart plavix -ABX OCTOR, PT/INR and T&S -D/w Dr. Sarabia Beena Barraza MD General Surgery Resident, PGY-2 [facility] Please contact surgical editorial intern distribution designer 5PM-6AM and weekends - #[phone] VTS Pager - #[phone] Subjective NAEO. Is ready for surgery tomorrow, all questions and concerns attended to PHYSICAL EXAM VITALS BP (!) 142/65 (BP Location: Right arm, Patient Position: Lying) Pulse 71 Temp 97.7 F (36.5 C) (Oral) Resp 18 Ht 6' 2 Wt 110.2 kg (242 lb 15.2 oz) SpO2 94% BMI 31.19 kg/m PHYSICAL EXAM General: Awake and alert, no acute distress Head: Normocephalic, atraumatic Eyes: No scleral icterus, EOM grossly intact Neck: Trachea midline Cardiovascular: Hemodynamically stable, regular rate Pulmonary: Nonlabored breathing, equal chest rise Extremities: LLE with evidence of TMA. RLE foot and distal ankle appear red and swollen. Doppler signal present in PT of LLE. No gangrene. Motor and sensory intact Skin: Dry and intact, no obvious rash Neurological: LUU, no gross focal deficits GI: Abd soft, nondistended. IMAGING/LABS Interval imaging and laboratory results reviewed Endovascular team note: I have seen and examined the patient, reviewed the chart, reviewed both recent and remote angiograms and interventional films from outside through a link that was provided to Demetrice Escobar and Dr. Hahn, and have discussed the case with the patient, his son Richard who is at bedside, with Dr. Hahn, Dr. Sarabia, and Mirna. 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 This has been known since 2019 when he was seen by Dr. Hahn, and he had undergone a prior TMA on the left. He has had significant worsening with severe right foot pain at rest and rubor. 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 Importantly this has been chronic since 2019 on prior angiography. Angioplasty was performed the right SFA to try to improve geniculate collateral flow. With this he has had worsening severe rest pain and discomfort as well as color change. He has YAMILE of 0.5 but flat metatarsal and toe waveforms. He underwent vein mapping studies. Dr. Sarabia feels that he has venous conduit (from arm possibly) that can be used for a femoral tibial bypass operation. In collaborative vascular discussions with [facility] Butler, the family, myself this is felt to be the most predictable option for complete revascularization (at least 6 years of occlusion, with significant risk of embolization even if we are able to cross this into single-vessel runoff), as well as a most durable solution. Dr. Sarabia had spoken with the patient yesterday, and the team will see the patient today, with tentative plans for bypass operation tomorrow under her direction. The patient has ongoing rest pain but is stable with no major progression. Both the patient and son understand the collaborative process on the patient's behalf, and the plan for bypass operation as the best option. [facility] Inpatient Progress Note 03/16/2025 Tristin Powell 1940 [id number] Assessment/Plan: Tristin Powell is a 85 y.o. male with a history of Peripheral Artery Disease s/p Bypass, Afib (Xarelto), Diastolic Heart Failure, Coronary Artery Disease s/p CABG, Hypertension, CKD III, COPD, Prostate Cancer, and Insomnia. Patient had outpatient angiogram 03/12/25 with balloon angioplasty. He presented to [facility] ED on 03/14/2025 from Vascular Surgery clinic with intractable right foot pain. In ED: right YAMILE 0.5; 50-99% stenosis in right mid superficial femoral artery; WBC 3.5. Course prolonged due to need for angiogram and Xarelto washout. Peripheral Artery Disease: Followed by Dr. Beaver ([facility]) and Dr. Sarabia (Vascular Surgery) s/p left femoral to peroneal bypass using contralateral reverse greater saphenous vein and partial left foot amputation (09/07/2018 - Dr. Sarabia). S/p angiogram 03/12/25 (Dr. Beaver) with balloon of SFA. Arterial Duplex 03/14/25: 50-99% stenosis in the right mid superficial femoral artery. ABIs 03/14/25: right YAMILE 0.50; left YAMILE is 0.55; severe small vessel disease in right foot. Continued home aspirin and statin. S/p Plavix. Held home Xarelto for procedure. Angiogram planned 03/17/25. Peripheral Vascular Cardiology and Vascular Surgery following. Acute on Chronic Pain Syndrome: with opiate dependence. Reviewed NARx: filled Percocet 5-325mg (#120, 30d supply) last on 02/13/25; continued with additional for acute pain. CAD: Followed by [facility] s/p 3 vessel coronary artery bypass grafting in 2017 and 7 stents. Chronic Diastolic Heart Failure: TTE 04/2024: LVEF 55% grade 1 diastolic dysfunction, moderate aortic regurgitation, moderate mitral regurgitation, mild tricuspid regurgitation. Appeared euvolemic on admission. Continued home losartan and lasix every other day. Paroxysmal Afib:: Held home Xarelto. Continued on Lopressor. Initiated heparin gtt Lymphopenia: Baseline WBC normal. WBC of 3.5 (ANC 1.9k) on 03/14/2025. WBC 4.27 03/16/2025 Coagulopathy: Baseline PT normal. PT 14.6, INR 1.1 on 03/14/2025. Prolonged QTc: 502-03/15/2025. Previously stable. Repeat pending 03/16/2025 CKD IIIa: Baseline SCr ~1.2, SCr 1.1 on 03/14/25. Monitored. Chronic Anemia: baseline Hgb ~11-13. Hgb of 13.2 (MCV 91) on 03/14/25. Insomnia: reviewed NARx report, consistent fills of zolpidem 10mg (#30, 30d supply) with last fill 02/13/25. Continued. Prostate Cancer: s/p brachytherapy, reportedly in remission. COPD: no evidence of acute exacerbation on admit. Reduced Mobility: present prior to admission. PTOT. Class I Obesity: Body mass index is 32.1 kg/m . Recommended lifestyle changes. 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 Estimated discharge date: 03/18/2025 Medically Ready for Discharge: no - needs revascularization plan *Alonzo (son) updated at bedside 03/15/25 Subjective: Seen at bedside. Reports pain is controlled with medications but without medication that hurts. On heparin GTT. High risk medication. Needs closer monitoring. Possible revascularization procedure tomorrow. Hemoglobin stable at 12. Repeat EKG pending to assess QTc Physical Exam: BP (!) 142/65 (BP Location: Right arm, Patient Position: Lying) Pulse 71 Temp 97.7 F (36.5 C) (Oral) Resp 18 Ht 6' 2 Wt 110.2 kg (242 lb 15.2 oz) SpO2 94% BMI 31.19 kg/m General: NAD Eyes: EOMI, sclera clear ENT: neck supple Cardiovascular: Regular rate, no murmur Respiratory: Clear to auscultation, symmetric air entry Gastrointestinal: Soft, non tender, non distended, positive bowel sounds Genitourinary: no CVA tenderness Musculoskeletal: no major joint deformity: RLE tired leg and comber tender to touch. Moving well with mild pain.: Decreased sensation in the foot. Warm. Left midfoot amputation Skin: warm, dry, no LE edema Neuro: Alert, oriented x3, no focal motor deficits Psych: Mood appropriate Current Medications: acetaminophen 650 mg Oral Q4H While awake aspirin 81 mg Oral Daily atorvastatin 80 mg Oral Nightly azelastine 1 spray Each Nare Daily furosemide 20 mg Oral Every Other Day losartan 50 mg Oral Daily with lunch metoprolol tartrate 50 mg Oral BID pantoprazole 40 mg Oral Daily polyethylene glycol 17 g Oral Daily tamsulosin 0.4 mg Oral After evening meal zolpidem 10 mg Oral Nightly Labs, Imaging and Studies reviewed: Results from last 7 days Lab Units 03/16/25 0328 03/15/25 1002 03/15/25 0305 03/14/25 1128 WBC K/mcL 4.27* -- 3.23* 3.50* HGB g/dL 12.0* 12.4* 11.7* 13.2* HCT % 36.7* 31.0* 34.9* 39.3* PLT K/mcL 159 -- 144* 173 Results from last 7 days Lab Units 03/16/25 0328 03/15/25 0305 03/14/25 1128 SODIUM mmol/L 141 141 139 POTASSIUM mmol/L 4.3 3.9 3.8 CHLORIDE mmol/L 106 108 102 BICARB mmol/L 24 24 25 BUN mg/dL 20 19 20 CREATININE mg/dL 1.11 1.12 1.12 EGFR mL/min/1.73 m2 65 64 64 GLUCOSE mg/dL 105* 139* 100* CALCIUM mg/dL 9.0 8.9 -- Results from last 7 days Lab Units 03/16/25 0907 03/14/25 1128 INR 1.1 1.1 [facility] Tristin Powell 1940 [id number] Assessment/Plan: Tristin Powell is a 85 y.o. male with a history of Peripheral Artery Disease s/p Bypass, Afib (Xarelto), Diastolic Heart Failure, Coronary Artery Disease s/p CABG, Hypertension, CKD III, COPD, Prostate Cancer, and Insomnia. Patient had outpatient angiogram 03/12/25 with balloon angioplasty. He presented to [facility] ED on 03/14/2025 from Vascular Surgery clinic with intractable right foot pain. In ED: right YAMILE 0.5; 50-99% stenosis in right mid superficial femoral artery; WBC 3.5. Course prolonged due to need for angiogram and Xarelto washout. Peripheral Artery Disease: Followed by Dr. Beaver ([facility]) and Dr. Sarabia (Vascular Surgery) s/p left femoral to peroneal bypass using contralateral reverse greater saphenous vein and partial left foot amputation (09/07/2018 - Dr. Sarabia). S/p angiogram 03/12/25 (Dr. Beaver) with balloon of SFA. Arterial Duplex 03/14/25: 50-99% stenosis in the right mid superficial femoral artery. ABIs 03/14/25: right YAMILE 0.50; left YAMILE is 0.55; severe small vessel disease in right foot. Continued home aspirin and statin. Held home Xarelto for procedure. Started Plavix. Angiogram planned 03/17/25. Peripheral Vascular Cardiology and Vascular Surgery following. Acute on Chronic Pain Syndrome: with opiate dependence. Reviewed NARx: filled Percocet 5-325mg (#120, 30d supply) last on 02/13/25; continued with additional for acute pain. CAD: Followed by [facility] s/p 3 vessel coronary artery bypass grafting in 2017 and 7 stents. Chronic Diastolic Heart Failure: TTE 04/2024: LVEF 55% grade 1 diastolic dysfunction, moderate aortic regurgitation, moderate mitral regurgitation, mild tricuspid regurgitation. Appeared euvolemic on admission. Continued home losartan and lasix every other day. Paroxysmal Afib:: Held home Xarelto. Continued on Lopressor. Initiated heparin gtt Lymphopenia: Baseline WBC normal. WBC of 3.5 (ANC 1.9k) on 03/14/2025. Coagulopathy: Baseline PT normal. PT 14.6, INR 1.1 on 03/14/2025. Prolonged QTc: 502-03/15/2025. Previously stable. Repeat pending 03/16/2025 CKD IIIa: Baseline SCr ~1.2, SCr 1.1 on 03/14/25. Monitored. Chronic Anemia: baseline Hgb ~11-13. Hgb of 13.2 (MCV 91) on 03/14/25. Insomnia: reviewed NARx report, consistent fills of zolpidem 10mg (#30, 30d supply) with last fill 02/13/25. Continued. Prostate Cancer: s/p brachytherapy, reportedly in remission. COPD: no evidence of acute exacerbation on admit. Reduced Mobility: present prior to admission. PTOT. Class I Obesity: Body mass index is 32.1 kg/m . Recommended lifestyle changes. 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 Estimated discharge date: 03/18/2025 Medically Ready for Discharge: no - needs revascularization plan *Alonzo (son) updated at bedside 03/15/25 Subjective: Seen at bedside. Denies any complaints. Son at bedside. Updated plan of care. HB dropped to 11.7 from 13.2 yesterday but improved to 12.4. Heparin GTT not needed for PAD but has history of A-fib. Heparin GTT started. on heparin GTT. High risk medication. Needs closer monitoring Repeat pending EKG tracing personally reviewed. Sinus rhythm with PVCs. Heart rate 93. QTc 502 Physical Exam: BP 131/62 (BP Location: Right arm, Patient Position: Lying) Pulse 84 Temp 99 F (37.2 C) (Oral) Resp 16 Ht 6' 2 Wt 110.2 kg (242 lb 15.2 oz) SpO2 91% BMI 31.19 kg/m General: NAD Eyes: EOMI, sclera clear ENT: neck supple Cardiovascular: Regular rate, no murmur Respiratory: Clear to auscultation, symmetric air entry Gastrointestinal: Soft, non tender, non distended, positive bowel sounds Genitourinary: no CVA tenderness Musculoskeletal: no major joint deformity: RLE tired leg and comber tender to touch. Moving well with mild pain.: Left midfoot amputation Skin: warm, dry, no LE edema Neuro: Alert, oriented x3, no focal motor deficits Psych: Mood appropriate Current Medications: acetaminophen 650 mg Oral Q4H While awake aspirin 81 mg Oral Daily atorvastatin 80 mg Oral Nightly azelastine 1 spray Each Nare Daily enoxaparin (LOVENOX) injection 40 mg Subcutaneous Daily furosemide 20 mg Oral Every Other Day losartan 50 mg Oral Daily with lunch metoprolol tartrate 50 mg Oral BID pantoprazole 40 mg Oral Daily polyethylene glycol 17 g Oral Daily tamsulosin 0.4 mg Oral After evening meal zolpidem 10 mg Oral Nightly Labs, Imaging and Studies reviewed: Results from last 7 days Lab Units 03/15/25 0305 03/14/25 1128 WBC K/mcL 3.23* 3.50* HGB g/dL 11.7* 13.2* HCT % 34.9* 39.3* PLT K/mcL 144* 173 Results from last 7 days Lab Units 03/15/25 0305 03/14/25 1128 SODIUM mmol/L 141 139 POTASSIUM mmol/L 3.9 3.8 CHLORIDE mmol/L 108 102 BICARB mmol/L 24 25 BUN mg/dL 19 20 CREATININE mg/dL 1.12 1.12 EGFR mL/min/1.73 m2 64 64 GLUCOSE mg/dL 139* 100* CALCIUM mg/dL 8.9 -- Results from last 7 days Lab Units 03/14/25 1128 INR 1.1 Peripheral Vascular Cardiology Inpatient Follow-up Heart & Vascular [facility] 03/15/[address] [facility] Patient: Tristin Powell Date of : 1940 (85 y.o.) PCP: Flash Lovelace MD Assessment/Plan: Carotid stenosis, asymptomatic, bilateral Assessment & Plan Asymptomatic. No hx of CVA Non-invasive Studies: Carotid Duplex (04/2024): Left ICA with mild <50% stenosis of heterogenous plaque. Right ICA with moderate 50-69% stenosis of heterogenous plaque Coronary artery disease involving coronary bypass graft of [place] heart without angina pectoris Assessment & Plan S/p 3v CABG in 2017 Asymptomatic Critical lower limb ischemia (HCC) Assessment & Plan Presents from Dr. 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 Plan for RLE angio +/- intervention 03/17/25, with Dr. Mast Continue asa and Plavix therapies We will continue to monitor over the weekend * PAD (peripheral artery disease) ([facility]) Assessment & Plan Longstanding, significant atherosclerotic disease with history of multiple endovascular and surgical interventions as outlined in the body of this note, please reference Plan: Continue ASA and statin therapies as prescribed. Subjective No acute events noted overnight. He is resting in bed comfortably. His exam remains stable. Repeat EKG Final Result by Interface, Lab Results In [place] [employer] (03/15/2025 0701) Echocardiogram complete w contrast Final Result by Obdulio Mack MD (11/06/2022 1315) Echocardiogram complete Final Result by Emmanuel Connor MD (10/08/2018 1726) Cardiac Catheterization Final Result by Ben Hahn MD (09/05/2018 1614) LASTCCTADATE@@ Review of Systems: The following system(s) were reviewed and negative. Pertinent positive and negative findings are noted in the HPI. [x] Const [x] Eyes [x] ENT [x] Resp [] CV [x] GI [x] [x] Neuro [x] Musc [x] Skin [x] Psych [x] Endo [x] Allergy [x] Heme/Lymph Current Medications[1] Objective: Physical Examination: BP 131/62 (BP Location: Right arm, Patient Position: Lying) Pulse 84 Temp 99 F (37.2 C) (Oral) Resp 16 Ht 6' 2 Wt 110.2 kg (242 lb 15.2 oz) SpO2 91% BMI 31.19 kg/m Constitutional: Alert, not in distress.? Eyes: Conjunctivae/corneas clear. Lungs: Clear to auscultation, no wheezes, rales or rhonchi. Cardiovascular: Normal rate and regular rhythm Abdomen: Soft, nontender with normal active bowel sounds; no masses or organomegaly. Skin: Normal coloration and turgor; no rashes or lesions. Musculoskeletal: Normal Range of Motion (ROM) Psych: Oriented to time, person, and place; appropriate mood. No results found for: CHOL , LDLCALC , LDLDIRECT , TRIG , HDL Serum creatinine: 1.12 mg/dL 03/15/25 0305 Estimated creatinine clearance: 55 mL/min [1] Current Facility-Administered Medications Medication Dose Route Frequency Provider Last Rate Last Admin acetaminophen (TYLENOL) tablet 650 mg 650 mg Oral Q4H While awake Muna Otto MD 650 mg at 03/14/25 1456 albuterol inhaler 2 puff 2 puff Inhalation Q4H PRN [place]una perez MD aluminum-magnesium hydroxide-simethicone (MAALOX PLUS) 200-200-20 mg/5 mL suspension 30 mL 30 mL Oral Q4H PRN [place]una perez MD aspirin EC tablet 81 mg 81 mg Oral Daily Demetrice Escobar, KAMARI 81 mg at 03/14/25 170 atorvastatin (LIPITOR) tablet 80 mg 80 mg Oral Nightly [place]Muna denise MD 80 mg at 03/14/252109 azelastine (ASTELIN) 137 mcg (0.1 %) nasal spray 1 spray 1 spray Each Nare Daily Muna Otto MD calcium carbonate (TUMS) chewable tablet 500 mg 500 mg Oral Daily PRN Muna Otto MD enoxaparin (LOVENOX) syringe 40 mg 40 mg Subcutaneous Daily Muna Otto MD furosemide (LASIX) tablet 20 mg 20 mg Oral Every Other Day Muna Otto MD HYDROmorphone (DILAUDID) injection 0.5 mg 0.5 mg Intravenous Q3H PRN Muna Otto MD 0.5 mg at 03/14/252109 losartan (COZAAR) tablet 50 mg 50 mg Oral Daily with lunch [place]una denise MD melatonin Tab 5 mg 5 mg Oral Nightly PRN Muna Otto MD metoprolol tartrate (LOPRESSOR) tablet 50 mg 50 mg Oral BID [place]una perez MD 50 mg at 03/14/252109 naloxone (NARCAN) injection 0.1 mg 0.1 mg Intravenous PRN Muna Otto MD And naloxone (NARCAN) injection 0.4 mg 0.4 mg Intravenous PRN Muna Otto MD ondansetron (ZOFRAN) injection 4 mg 4 mg Intravenous Q6H PRN Muna Otto MD 4 mg at 03/14/252241 oxyCODONE-acetaminophen (PERCOCET) 5-325 mg per tablet 1 tablet 1 tablet Oral Q6H PRN Muna Otto MD pantoprazole (PROTONIX) EC tablet 40 mg 40 mg Oral Daily Muna Otto MD polyethylene glycol (MIRALAX) powder 17 g 17 g Oral Daily [place]una perez MD polyvinyl alcohol (LIQUIFILM TEARS) 1.4 % ophthalmic solution 1 drop 1 drop Both Eyes PRN Muna Otto MD senna-docusate (SENNA-S) 8.6-50 mg per tablet 1 tablet 1 tablet Oral Daily PRN Muna Otto MD sodium chloride (OCEAN) 0.65 % nasal spray 1 spray 1 spray Each Nare PRN Muna Otto MD sodium chloride (PF) (NS) flush 5 mL 5 mL Intravenous PRN Dashawn Stallings PA-C 5 mL at 03/14/25 2112 And sodium chloride 0.9% (NS) 0-150 mL/hr Intravenous PRN Dashawn Stallings PA-C tamsulosin (FLOMAX) 24 hr capsule 0.4 mg 0.4 mg Oral After evening meal Muna Otto MD zolpidem (AMBIEN) tablet 10 mg 10 mg Oral Nightly [place]una perez MD 10 mg at 03/14/256 documented in this encounter [facility] 03-21-2025 Note MEDONE DISCHARGE Tristin Thakkar Account: [id number] Admitted: 03/14/2025 Discharge Date/Time: 03/21/25 / 3:57 PM ___ Handoff to PCP Routine hospital follow up Outpatient follow-up with vascular surgery. Continued Xarelto. Clinical Summary Tristin Powell is a 85 y.o. male with a history of Peripheral Artery Disease s/p Bypass, Afib (Xarelto), Diastolic Heart Failure, Coronary Artery Disease s/p CABG, recent balloon angioplasty 03/12/2025,. presented to [facility] ED on 03/14/2025 from Vascular Surgery clinic with intractable right foot pain. Found to have critical right LE ischemia s/p distal SFA to peroneal bypass. Discharged home with outpatient therapy. Critical right lower limb ischemia: History of PAD. Follows Dr. Beaver ([facility]) and Dr. Sarabia (Vascular Surgery) s/p left femoral to peroneal bypass using contralateral reverse greater saphenous vein and partial left foot amputation (09/07/2018 - Dr. Sarabia). S/p angiogram 03/12/25 (Dr. Beaver) with balloon of SFA. Arterial Duplex 03/14/25: 50-99% stenosis in the right mid superficial femoral artery. ABIs 03/14/25: With severe 1 small vessel disease of the right foot. Continued ASA, statin and heparin gtt. S/p Plavix. Resume resumed home AC. S/p angiogram 03/17/25 with R SFA to peroneal bypass. Repeat ABIs 03/20/25. PV Cardiology and Vascular Surgery followed. Acute on Chronic Pain Syndrome: with opiate dependence. Continued home Percocet with increased dose. S/p IV pain meds. CAD: Followed by [facility] s/p 3 vessel coronary artery bypass grafting in 2017 and 7 stents. Meds as above Chronic Diastolic Heart Failure: TTE 04/2024: LVEF 55% G1DD, moderate AR, moderate MR, mild TR. Euvolemic. Continued home losartan and lasix Paroxysmal Afib: Held home Xarelto on admit. Continued Lopressor. S/p heparin gtt, resumed xarelto. Valvular disease: Mild to moderate aortic valve regurg and mild to moderate mitral valve regurg, mild tricuspid and pulmonic valve regurg. Shown on echo 05/13/2024. Outpatient surveillance advised. Aortic root dilatation: 4.1 cm on echo. Patient surveillance OP. Lymphopenia: Baseline WBC normal. WBC of 3.5 (ANC 1.9k) on 03/14/2025. Monitor. Prolonged QTc: 502-03/15/2025. Previously stable. Repeat 464. CKD IIIa: Baseline SCr ~1.2, SCr 1.1 on 03/14/25. Monitored. Chronic Anemia: baseline Hgb ~11-13. Hgb of 13.2 (MCV 91) on 03/14/25. Asymptomatic bilateral carotid stenosis: No history of CVA. Shown on duplex 04/2024. AC/AP as above Insomnia: Continue zolpidem Prostate Cancer: s/p brachytherapy, reportedly in remission. COPD: no evidence of acute exacerbation on admit. Reduced Mobility: present prior to admission. PTOT. Class I Obesity: Body mass index is 32.1 kg/m . Recommended lifestyle changes. Code Status: Full - confirmed with patient and son on admit Reports feeling better today and making improvements. Was able to work with therapy yesterday and was able to ambulate 20 feet. Yesterday we discussed possible SNF but now he is requesting that he wants to go home. Requesting to be set up with outpatient therapy and does not want people in his house. Social work discussed options and OP therapy was set up. Plan for DC home today and okay with vascular surgery. Discharge Medications Discharge Medications New Medications Details naloxone 4 mg/actuation Vance Commonly known as: NARCAN Administer 1 spray into one nostril for known or suspected opioid overdose. If patient worsens or does not respond, may repeat in 2-3 minutes. . Quantity: 2 each Modified Medications Details atorvastatin 80 MG tablet Commonly known as: LIPITOR What changed: how much to take when to take this additional instructions Take 1 (one) tablet (80 mg total) by mouth nightly . Quantity: 30 tablet oxyCODONE-acetaminophen 5-325 mg per tablet Commonly known as: PERCOCET What changed: additional instructions Take 1 (one) tablet by mouth every 6 (six) hours as needed for pain (Days supply per fill: 3) . Quantity: 12 tablet Medications To Continue Details albuterol 90 mcg/actuation inhaler Inhale 2 (two) puffs every 4 (four) hours as needed for wheezing, shortness of breath or cough . Quantity: 54 g aspirin 81 mg Cap Take 1 (one) capsule (81 mg total) by mouth daily . azelastine 137 mcg (0.1 %) nasal spray Commonly known as: ASTELIN 1 (one) spray by Each Nare route daily . Calmoseptine 0.44-20.6 % Oint Generic drug: menthol-zinc oxide Apply 1 Application topically daily as needed . fluticasone propionate 50 mcg/actuation nasal spray Commonly known as: FLONASE 2 (two) sprays by Each Nare route daily . Quantity: 16 g furosemide 20 MG tablet Commonly known as: LASIX Take 1 (one) tablet (20 mg total) by mouth daily as needed Reasons: visible water re (more content not included)... [facility] 03-21-2025 Hospital course Narrative MEDONE DISCHARGE SUMMARY Tristin Powell Account: [id number] Admitted: 03/14/2025 Discharge Date/Time: 03/21/25 3:57 PM ___ Handoff to PCP Routine hospital follow up Outpatient follow-up with vascular surgery. Continued Xarelto. Clinical Summary Tristin Powell is a 85 y.o. male with a history of Peripheral Artery Disease s/p Bypass, Afib (Xarelto), Diastolic Heart Failure, Coronary Artery Disease s/p CABG, recent balloon angioplasty 03/12/2025,. presented to [facility] ED on 03/14/2025 from Vascular Surgery clinic with intractable right foot pain. Found to have critical right LE ischemia s/p distal SFA to peroneal bypass. Discharged home with outpatient therapy. Critical right lower limb ischemia: History of PAD. Follows Dr. Beaver ([facility]) and Dr. Sarabia (Vascular Surgery) s/p left femoral to peroneal bypass using contralateral reverse greater saphenous vein and partial left foot amputation (09/07/2018 - Dr. Sarabia). S/p angiogram 03/12/25 (Dr. Beaver) with balloon of SFA. Arterial Duplex 03/14/25: 50-99% stenosis in the right mid superficial femoral artery. ABIs 03/14/25: With severe 1 small vessel disease of the right foot. Continued ASA, statin and heparin gtt. S/p Plavix. Resume resumed home AC. S/p angiogram 03/17/25 with R SFA to peroneal bypass. Repeat ABIs 03/20/25. Cardiology and Vascular Surgery followed. Acute on Chronic Pain Syndrome: with opiate dependence. Continued home Percocet with increased dose. S/p IV pain meds. CAD: Followed by [facility] s/p 3 vessel coronary artery bypass grafting in 2017 and 7 stents. Meds as above Chronic Diastolic Heart Failure: TTE 04/2024: LVEF 55% G1DD, moderate AR, moderate MR, mild TR. Euvolemic. Continued home losartan and lasix Paroxysmal Afib: Held home Xarelto on admit. Continued Lopressor. S/p heparin gtt, resumed xarelto. Valvular disease: Mild to moderate aortic valve regurg and mild to moderate mitral valve regurg, mild tricuspid and pulmonic valve regurg. Shown on echo 05/13/2024. Outpatient surveillance advised. Aortic root dilatation: 4.1 cm on echo. Patient surveillance OP. Lymphopenia: Baseline WBC normal. WBC of 3.5 (ANC 1.9k) on 03/14/2025. Monitor. Prolonged QTc: 502-03/15/2025. Previously stable. Repeat 464. CKD IIIa: Baseline SCr ~1.2, SCr 1.1 on 03/14/25. Monitored. Chronic Anemia: baseline Hgb ~11-13. Hgb of 13.2 (MCV 91) on 03/14/25. Asymptomatic bilateral carotid stenosis: No history of CVA. Shown on duplex 04/2024. AC/AP as above Insomnia: Continue zolpidem Prostate Cancer: s/p brachytherapy, reportedly in remission. COPD: no evidence of acute exacerbation on admit. Reduced Mobility: present prior to admission. PTOT. Class I Obesity: Body mass index is 32.1 kg/m . Recommended lifestyle changes. Code Status: Full - confirmed with patient and son on admit Reports feeling better today and making improvements. Was able to work with therapy yesterday and was able to ambulate 20 feet. Yesterday we discussed possible SNF but now he is requesting that he wants to go home. Requesting to be set up with outpatient therapy and does not want people in his house. Social work discussed options and OP therapy was set up. Plan for DC home today and okay with vascular surgery. Discharge Medications Discharge Medications New Medications Details naloxone 4 mg/actuation Vance Commonly known as: NARCAN Administer 1 spray into one nostril for known or suspected opioid overdose. If patient worsens or does not respond, may repeat in 2-3 minutes. . Quantity: 2 each Modified Medications Details atorvastatin 80 MG tablet Commonly known as: LIPITOR What changed: how much to take when to take this additional instructions Take 1 (one) tablet (80 mg total) by mouth nightly . Quantity: 30 tablet oxyCODONE-acetaminophen 5-325 mg per tablet Commonly known as: PERCOCET What changed: additional instructions Take 1 (one) tablet by mouth every 6 (six) hours as needed for pain (Days supply per fill: 3) . Quantity: 12 tablet Medications To Continue Details albuterol 90 mcg/actuation inhaler Inhale 2 (two) puffs every 4 (four) hours as needed for wheezing, shortness of breath or cough . Quantity: 54 g aspirin 81 mg Cap Take 1 (one) capsule (81 mg total) by mouth daily . azelastine 137 mcg (0.1 %) nasal spray Commonly known as: ASTELIN 1 (one) spray by Each Nare route daily . Calmoseptine 0.44-20.6 % Oint Generic drug: menthol-zinc oxide Apply 1 Application topically daily as needed . fluticasone propionate 50 mcg/actuation nasal spray Commonly known as: FLONASE 2 (two) sprays by Each Nare route daily . Quantity: 16 g furosemide 20 MG tablet Commonly known as: LASIX Take 1 (one) tablet (20 mg total) by mouth daily as needed Reasons: visible water retention. losartan 50 MG tablet Commonly known as: COZAAR Take 1 (one) tablet (50 mg total) by mouth daily . metoprolol tartrate 50 MG tablet Commonly known as: LOPRESSOR Take 1 (one) tablet (50 mg total) by mouth 2 (two) times a day . nitroGLYCERIN 0.4 MG SL tablet Commonly known as: NITROSTAT Place 1 tablet as needed by sublingual route. omeprazole 20 MG capsule Commonly known as: PRILOSEC Take 1 (one) capsule (20 mg total) by mouth daily . polyethylene glycol 17 gram powder Commonly known as: MIRALAX Take 17 (seventeen) g by mouth daily . rivaroxaban 2.5 mg tablet Commonly known as: XARELTO Take 1 (one) tablet (2.5 mg total) by mouth 2 (two) times a day . tamsulosin 0.4 mg capsule Commonly known as: FLOMAX Take 1 (one) capsule (0.4 mg total) by mouth daily . zolpidem 10 mg tablet Commonly known as: AMBIEN Take 1 (one) tablet (10 mg total) by mouth nightly as needed . Physician(s) Family: Flash Lovelace MD, , Address: [address] [address] Follow Up: Physicians, [facility] [address] [place] [address] Follow up Thank you for allowing us to participate in your care. Please follow up with your vascular surgery team after discharge. Please call our office with any questions or concerns. OTHER - NOT IN LIST [place] [address] Additional Information: Patient seen and examined day of discharge. For more information regarding patient's care, including complete radiology reports, please contact [facility] at Patient instructions, including activity, were given to the patient/family at discharge. Please see the After Visit Summary in the medical record for details. Time spent on discharge: > 30 minutes Completed by: Uri Voss DO on 03/21/25, 3:57 PM documented in this encounter [facility] 03-21-2025 Hospital Discharge instructions Beena Barraza MD - 03/21/2025 1:12 PM EDT Vascular Surgery Postoperative Instructions & Groin Wound Care Pain Control: You should take Tylenol (acetaminophen) 500 mg around the clock every 6 hours for the first few days after surgery. Do not exceed 4000 mg of Tylenol (acetaminophen) in 24 hours. Use oxycodone as needed for breakthrough/severe pain or nighttime pain. Do not drive or operate heavy machinery while taking oxycodone. You do not need to take these medications if you are not having pain. Medications: It is very important you continue taking your antiplatelet or blood thinner medication(s) Xarelto (rivaroxaban) and Aspirin 81 mg as prescribed. This medication is especially important after your recent surgery, to prevent complications and make sure your treatment plan works effectively. Continue taking your other medications as prescribed in your discharge summary sheet. Wound Care: You have an incision in your groin after your recent vascular surgery. The groin areas is where the legs meet the belly and the skin folds to make a crease. Moisture in this area can lead to an infection. Your incision is closed with stitches or maral, and may sometimes be covered with a vacuum/suction dressing. You will leave the hospital before your groin incision fully heals. You should clean your groin incision every day until seen in office at your postoperative visit. How to Clean Your Groin Incision: Gently clean the wound and groin with mild soap and water. Do not scrub the incision. Pat the incision dry with a towel to completely dry the groin. Do not use any lotions, alcohols, powders, or oils on your incision Cover the wound with dry gauze and paper tape. Change as needed if soiled or loose Bathing: You can shower at home and get the incisions wet in the shower. Let water run off the incisions. Do NOT scrub your incisions. Do not swim or soak in a bathtub or hot tub for at least 2 weeks after surgery so that your wound can fully heal. Signs of Infection: Look at your wound every day. Call the office if you notice any of these signs of infection: - Increased redness or warmth at the incision site(s) - New foul-smelling, cloudy, yellow, or green drainage from the wound - Bulging or increased swelling at the incision site - Continued bleeding from the wound - Fever over 101 degrees for two readings taken by mouth 4 hours apart - Sudden increase in pain at the wound that is not relieved by pain medicine Tobacco Cessation: If you are a tobacco user, it's never too late to quit smoking. Quitting smoking now improves your health and reduces your risk of heart disease, cancer, lung disease, and other smoking-related illnesses. The following resources are available if you need help quitting smoking: call 8-106-SOKN-NOW ( ) or visit Smokefree.gov for more information. Who to Call: [facility] Vascular [facility] [place] [facility] Please call the office number at [phone] to confirm your follow-up appointment, or if you have any questions or concerns. documented in this encounter [facility] 03-21-2025 Consult note Associated Order (s): IP CONSULT TO HOME HEALTH HUB HOME HEALTH CARE DISCHARGE PLAN Consulted for [facility] services: PT, OT Agency preference: [facility] If discharge needs change, please reach out to liaison assigned on treatment team as hub is not notified of new consults once team is following. Thank you. Patients needing wound care or infusions (IVs or enteral feeds) should not discharge until [facility] is completely set up. AddendUm 1056: Rec'd call from Larisa, referral accepted. AVS updated. Addendum 9321: Rec'd msg from Richie MARIO, pt elects outpt therapy. [facility] discontinued and update sent to [facility]. Is [facility] plan complete or pending? Pt elects outpt tx Name of accepting [facility] agency: [facility] - notified Referrals sent to: (names of agencies) Please be advised that agencies have 24 hours to respond to referrals. [facility] - [facility] (did not send) Any [facility] (orders) placed? discontinued Verify demographics (discharge address) [address] [address] [employer] What is the primary phone number? [phone] Who is your primary care physician? Flash Lovelace MD Following physician will be: (first & last name) Mohsen Sarabia MD Do you have a teachable caregiver (TCG)? (name & phone #) lives w/ brother Are there any special precautions or safety concerns (isolation precautions, etc)? no Estimated Discharge Date (MIKE): 03/21/25 For non-infusion pts: If home health care is not arranged at time of discharge, liaison will follow up on referral(s) for 24 to 48 hours post-discharge to attempt securing home health care services. If home care is not arranged within that time, liaison will notify patient/family of need to follow up with PCP for home care assistance. Please note: for patients without a PCP and are scheduled a [facility] appointment, [facility] will not arrange home health care. ARHH = Ambulatory Referral for Home Health DC = Discharge MIKE = Estimated Discharge Date HHC = Home Health Care IP = Infusion Pharmacy OON = Out of Network OOSA = Out of Service Area LEX = Resumption of Care SOC = Start of Care TCG = Teachable Mammalogist [facility] 03-21-2025 Consult note Associated Order (s): IP CONSULT TO HOME HEALTH HUB HOME HEALTH CARE DISCHARGE PLAN Consulted for [facility] services: PT, OT Agency preference: [place] If discharge needs change, please reach out to liaison assigned on treatment team as hub is not notified of new consults once team is following. Thank you. Patients needing wound care or infusions (IVs or enteral feeds) should not discharge until [facility] is completely set up. AddendUm [id number]: Rec'd call from Any, referral accepted. AVS updated. Addendum [id number]: Rec'd msg from Richie MARIO, pt elects outpt therapy. ARHH discontinued and update sent to [facility]. Is [facility] plan complete or pending? Pt elects outpt tx Name of accepting [facility] agency: [facility] - notified Referrals sent to: (names of agencies) Please be advised that agencies have 24 hours to respond to referrals. [facility] (did not send) [facility] Living [facility] (orders) placed? discontinued Verify demographics (discharge address) [address] [facility] [address] [employer] What is the primary phone number? [phone] Who is your primary care physician? Flash Lovelace MD Following physician will be: (first & last name) Mohsen Sarabia MD Do you have a teachable caregiver (TCG)? (name & phone #) lives w/ brother Are there any special precautions or safety concerns (isolation precautions, etc)? no Estimated Discharge Date (MIKE): 03/21/25 For non-infusion pts: If home health care is not arranged at time of discharge, liaison will follow up on referral(s) for 24 to 48 hours post-discharge to attempt securing home health care services. If home care is not arranged within that time, liaison will notify patient/family of need to follow up with PCP for home care assistance. Please note: for patients without a PCP and are scheduled a [facility] appointment, [facility] will not arrange home health care. ARHH = Ambulatory Referral for Home Health DC = Discharge MIKE = Estimated Discharge Date HHC = Home Health Care IP = Infusion Pharmacy OON = Out of Network OOSA = Out of Service Area LEX = Resumption of Care SOC = Start of Care TCG = Teachable Mammalogist Associated Order(s): IP CONSULT TO CARE MANAGEMENT; IP CONSULT TO CARE MANAGEMENT Care Management Progress Note Date: 03/19/2025 Time: 8:58 AM Patient Name: Tristin Powell Date of : 1940 Discharge Plan: D/C Disposition: Home Health Care Services Related to Current Admission?: Yes Plan A: Home Health Care Services Plan B: Home Discharging Transportation Plan: Transportation Type: Auto Discharge Plan Status: home vs faciltiy CM following and reconsulted for dc needs. Chart reviewed, patient last able to work with therapy 03/18, current recs are up to 5 with ampac of 10. Per previous [facility] note, patient was agreeable to [facility] services prior to OR 03/17. Patient was independent prior to admission, hopeful for progression with therapy to proceed with home going plan. Otherwise will explore facility route if interested. If agreeable to facility, will need precert. Will continue to follow as patient progresses medically. Addendum 1355: spoke with patient at bedside. Patient only wants home going plan. Will still plan for [facility] once ready for discharge. Assessment and Background Information: Occupational Therapy OCCUPATIONAL THERAPY EVALUATION AND TREATMENT NOTE OCCUPATIONAL THERAPY EVALUATION Skilled Therapy Needs After Discharge Anticipate Resolution of Current Assessment Limitations Including: Pain, Mechanical Barriers Are OT Skilled Therapy Services Needed After Discharge: Yes Intensity of OT Skilled Therapy: Up to 5 days per week Anticipated Duration of OT Skilled Therapy: Duration 7 - 10 days OT DME Recommendation: To be determined at next level of care Rehab Potential: Good Outcomes Measures Prior Function Daily Activity Raw Score: 24 Prior Function Daily Activity % Impaired: 0% AM-PAC Daily Activity Raw Score: 17 AM-PAC Daily Activity % Impaired: 50.11% Occupational Therapy Assessment The patient's current functional participation deficits are grooming, UE dressing, LE dressing, bathing, toileting, home management, hobbies, functional mobility, driving. This reduced independence will limit their life roles of premorbid level individual, parent, family member, community member. The patient's co morbidities do affect patient performance in the above activities and roles. The performance deficits are a result of musculoskeletal, vascular impairment(s) in generalized debility, lower extremity, global systems including acitvity tolerance, pain, insight, safety, and knowledge deficit, pain intolerance. The patient's home setup is a geek squad manager for return to prior level of function. The patient's compliance is a barrier, awareness of own capacity and performance is a geek squad manager to return to prior level of function. During the assessment, minimal to moderate modification of task was required and several treatment options were identified in the plan of care. This consultation required expanded review of the medical and therapy history. Activity Tolerance Activity Tolerance: Tolerates 20 - 30 min activity with multiple rests Therapy Precautions Orthotic Devices: Yes Lower Extremity: Prosthesis, AFO (Prior L-foot amputation.) Weight Bearing Status: WFL General Rehab Precautions: Fall risk Cognition Overall Cognitive Status: Within Functional Limits Arousal/Alertness: Appropriate responses to stimuli Orientation Level: Oriented X4 Executive functioning: WFL Safety Judgment: Decreased awareness of need for assistance, Decreased awareness of need for safety Problem Solving: Assistance required to identify errors made, Assistance required to generate solutions Attention: Attends to quiet environment Hearing Status: WFL Social Interaction: Appropriate, Cooperative, Impulsive Comments: Pt able to follow 1-2 commands. Pt demonstrated ability to follow higher complex tasks, improving activity tolerance in recliner w/ sink-level ADLs. Pt required Mod VC's on safety precautions during sit to stand utilizing AE. ADL Grooming: Set-up, Stand by assist Upper Body Bathing: Set-up, Stand by assist Lower Body Bathing: Set-up Upper Body Dressing: Set-up, Minimal assist Toileting: Set-up, Maximal assist Functional Mobility: Contact guard assist, Minimal assist Bed Mobility Rolling: Supervision, Stand by assist Supine to Sit: Supervision, Stand by assist Sit to Supine: (Post-session Pt left in EOB position.) Careers Counsellor: bedrails Functional Transfers Sit to Stand: Minimal assist, Moderate assist, 2 person assist Careers Counsellor: wheeled walker Additional Functional Transfer Trial 2: Yes Sit to Stand Trial 2: Contact guard assist, Minimal assist Bed to Chair Trial 2: Contact guard assist, Minimal assist Careers Counsellor Trial 2: wheeled walker Home Living Obtained Home Living and PLOF info from: Patient Lives With: (Brother. Brother is available to help as needed.) Type of Home: House Home Layout: One level Steps to enter home: Yes Rails to enter home: None Number of stairs to enter home: 1 Bathroom Shower/Tub: Tub/shower unit Bathroom Toilet: Raised Bathroom Equipment: Shower chair Mobility Equipment: (Reports no using AD but does own crutches, rollator and wheeled walker.) Prior Level of Function Level of [place] - Transfers/Ambulation/Mobility: Independent with functional transfers Level of [place] - ADLs: Independent Level of [place] - Homemaking: Independent Driving: Patient drives Vocational: Retired Leisure: Pt reported, enjoys fishing. OCCUPATIONAL THERAPY TREATMENT NOTE Total Treatment Time (Total Session Time): 40 Minutes Total Timed Code Treatment Minutes: 25 Minutes Cognitive Skills Development Skilled Intervention Provided: verbal cues, facilitation, grading task, task breakdown/simplification, environmental setup/modification For: compensatory techniques, preparing for self-care tasks Resulting In: improved activity tolerance, increased insight into deficits, increased safety awareness Self-Care / ADL Grooming - Skilled Intervention Provided: verbal cues, environmental setup/modification, facilitation, monitored patient's safety and tolerance Grooming - For: compensatory strategies, efficient movement, task simplification/modification Grooming - Resulting In: improved activity tolerance, improved functional independence, improved performance with ADLs, improved safety, increased upright tolerance for functional tasks Upper Body Bathing - Skilled Intervention Provided: environmental setup/modification, facilitation, monitored patient's safety & tolerance Upper Body Bathing - For: compensatory strategies, efficient movement, safe bathing techniques, task simplification/modification, LE management, UE management Upper Body Bathing - Resulting In: improved activity tolerance, improved functional independence, improved performance with ADLs, improved safety, increased insight into deficits Lower Body Bathing - Skilled Intervention Provided: environmental setup/modification, facilitation, monitored patient's safety & tolerance Lower Body Bathing - For: LE management, compensatory strategies, efficient movement, safe bathing techniques, task simplification/modification Lower Body Bathing - Resulting In: improved activity tolerance, improved functional independence, improved performance with ADLs, improved safety, increased insight into deficits Upper Body Dressing - Skilled Intervention Provided: verbal cues, environmental setup/modification, facilitation, monitored patient's safety & tolerance Upper Body Dressing - For: UE management, compensatory strategies, self-monitoring, task simplification/modification, efficient movement Upper Body Dressing - Resulting In: improved activity tolerance, improved functional independence, improved performance with ADLs, improved safety, increased insight into deficits, increased upright tolerance for functional tasks Toileting - Skilled Intervention Provided: verbal cues, environmental setup/modification, facilitation, monitored patient's safety and tolerance Toileting - For: compensatory strategies, task simplification/modification Toileting - Resulting In: improved activity tolerance, improved safety, increased insight into deficits Functional Mobility - Skilled Intervention Provided: verbal cues, environmental setup/modification, facilitation, monitoring patient response with activity, provided step by step instructions Functional Mobility - For: compensatory strategies, efficient movement, fall prevention, safety during functional task(s), increased participation in mobility task Functional Mobility - Resulting In: improved activity tolerance, improved functional independence, increased initiation/participation in mobility task(s), improved safety, increased insight into deficits, increased upright tolerance for functional task(s), decreasing fall risk Therapeutic Activities Bed Mobility Skilled Intervention Provided: verbal cues, environmental setup/modification, facilitation, monitoring patient response with activity, monitoring patient response with positional changes For: LE management, UE management, compensatory strategies, safety during functional task(s), efficient movement Resulting In: improved activity tolerance, improved safety, increased initiation in mobility task(s), increased insight into deficits, increased upright tolerance for functional tasks Functional Transfers Skilled Intervention Provided: verbal cues, environmental setup/modification, facilitation, monitoring patient response with activity, provided step by step instructions For: LE management, UE management, compensatory strategies, efficient movement, fall prevention, increased participation in mobility task, safe use of AD and/or equipment, safety during functional task(s) Resulting In: improved activity tolerance, improved functional independence, increased initiation/participation in mobility task(s), improved safety, increased insight into deficits, increased upright tolerance for functional task(s), decreasing fall risk Additional Treatment Details Education provided on intiiating breaks/pace during functional tasks to improve activity tolerance. Pt demonstrated difficulty with self-awareness of safety when changing positions sit to stand. Pt required Mod VC's for redirection. Pt would benefit from continued education on utilizing AE. Past Medical History: Diagnosis Date Arthritis Avascular necrosis of bone of hip ([facility]) Claudication COPD (chronic obstructive pulmonary disease) ([facility]) Coronary artery disease Herpes zoster Hyperlipidemia Hypertension PAD (peripheral artery disease) ([facility]) 01/21/2022 Posterior tibial tendinitis of right leg 11/07/2022 Prostate cancer ([facility]) Vascular disease Past Surgical History: Procedure Laterality Date 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/08/2018 Procedure: LEFT MIDFOOT AMPUTATION; Surgeon: Flynn Mann DPM; Location: [facility]; Service: Podiatry ANKLE SURGERY Left BYPASS FEMOROTIBIAL REPAIR/GRAFT Right 03/17/2025 Procedure: RIGHT FEMORAL TO TIBIAL BYPASS WITH ARM VEIN. 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 This note stands as the current Discharge Summary upon patient discharge from the hospital or completion of Occupational Therapy Plan of Care. Cosigned by Francy Alcantara OT at 03/19/2025 4:38 PM EDT Associated Order(s): IP CONSULT TO CARE MANAGEMENT Care Management Consult Note Date: 03/15/2025 Time: 12:32 PM Patient Name: Tristin Powell Date of : 1940 Reason for Consult: Discharge Plan: D/C Disposition: Home Health Care Services Related to Current Admission?: Yes Plan A: Home Health Care Services Plan B: Home Discharging Transportation Plan: Transportation Type: Auto Discharge Plan Status: SIGN PAINTER HELPER consulted for discharge needs. PT recommending therapy 2-3 days per week. OT pending. SIGN PAINTER HELPER met with pt at bedside to discuss C level of care. Pt agreeable HHC. Pt with no [preference of agency. Pt's son will be primary caregiver upon discharge and will transport pt home when medically ready. SIGN PAINTER HELPER confirmed pt demographics including address on file, active PCP and insurance coverage Will send home fabio consult once OT recommendations are placed. Will continue to follow. Assessment and Background Information: Living Arrangements: Family members Caregiver Identified: No Support Systems: Children Assistance Needed: no Type of Residence: Private residence Prior to Admission Home Care Services: No Type of Current Home Care Services: Home health care Current Home Equipment: Wheel chair Holistic Assessment Medication adherence problem:: No History of falls in last 6 months:: No Family aware of the patient's advance care planning wishes:: Yes Do you have any cultural/spiritual connections or beliefs that would impact how we deliver your care?: No Physical Therapy PHYSICAL THERAPY EVALUATION and TREATMENT NOTE PHYSICAL THERAPY EVALUATION Skilled Therapy Needs After Discharge Anticipate Resolution of Current Assessment Limitations Including: Mechanical Barriers, Pain Are scale tester Therapy Services Needed After Discharge: Yes Intensity of scale tester Therapy: 2-3 days per week Anticipated Duration of scale tester Therapy: Duration 10 - 30 days PT DME Recommendation: None Rehab Potential: Good Outcomes Measures Prior Function - Basic Mobility Raw Score: 24 Points Prior Function - Basic Mobility % Impaired: 0% AM-PAC Basic Mobility Raw Score: 17 Points AM-PAC Basic Mobility % Impaired: 43.83% Physical Therapy Assessment History: The following factors influence the patient's participation in the PT plan of care: Personal Factors: Body Habitus, Social Barriers, Age, Education Level, Decreased Insight, Limited Baseline Mobility Environmental Factors: Steps to enter home The following co-morbidities (from this admission or prior) influence the patient's participation in this plan of care: Peripheral Artery Disease s/p Bypass, Afib (Xarelto), Diastolic Heart Failure, Coronary Artery Disease s/p CABG, Hypertension, CKD III, COPD, Prostate Cancer, and Insomnia Number of History elements affecting this patient's PT plan of care: 3 or more Examination of Body Systems: The patient presents with: Musculoskeletal impairments: Strength, Pain, Functional Endurance Neurologic Impairments: Balance, Pain Cardiopulmonary Impairments: Activity Tolerance Vascular Impairments: Amputation. These impairments result in limitations of Gait, Stair-Climbing, Safety, Safety Awareness, Activity Tolerance, Insight. These impairments result in restrictions of Community mobility, Leisure activities. Number of Body Systems elements affecting this patient's PT plan of care: 4 or more. Clinical Presentation: The patient's clinical presentation for this PT evaluation is evolving with changing characteristics as evidenced by current PT documentation. Activity Tolerance Activity Tolerance: Tolerates less than 10 min activity, no significant change in vital signs Therapy Precautions Orthotic Devices: Yes Lower Extremity: AFO (left leg. present in room) Weight Bearing Status: WFL General Rehab Precautions: Fall risk Balance Assessment Sitting Balance - Static: Supervision Sitting Balance - Dynamic: Supervision Standing Balance - Static: Contact guard assist Careers Counsellor - Standing Static: wheeled walker Standing Balance - Dynamic: Contact guard assist Careers Counsellor - Standing Dynamic: same first aid director used for static standing tasks Bed Mobility Rolling: Supervision Supine to Sit: Supervision Sit to Supine: (patient sitting EOB) Careers Counsellor: bedrails Transfers Sit to Stand: Contact guard assist Careers Counsellor: wheeled walker Gait/Locomotion Gait Assistance: Contact guard assist Assistive Device: wheeled walker Distance: 100 Feet Pattern: decreased pamela (steps per minute), forward flexed Gait Loss(es) of Balance: multidirectional (Intermittent moment of left shoe hitting the ground with swing phase, requiring min A to maintain upright posture) Home Living Obtained Home Living and PLOF info from: Patient Lives With: (Brother. Brother is available to help as needed.) Type of Home: House Home Layout: One level Steps to enter home: Yes Rails to enter home: None Number of stairs to enter home: 1 Bathroom Shower/Tub: Tub/shower unit Bathroom Toilet: Raised Bathroom Equipment: Shower chair Mobility Equipment: (Reports no using AD but does own crutches, rollator and wheeled walker.) Prior Level of Function Level of [place] - Transfers/Ambulation/Mobility: Independent with community ambulation, Independent with household ambulation, Independent with functional transfers Level of [place] - ADLs: Independent Level of [place] - Homemaking: Independent Driving: Patient drives Vocational: Retired Subjective Impression - Prior Function: Pt reports independence with all activities. PHYSICAL THERAPY TREATMENT NOTE Total Treatment Time (Total Session Time): 16 Minutes Total Timed Code Treatment Minutes: 8 Minutes Neuromuscular Reeducation Gait Training Therapeutic Activities Bed Mobility Skilled Intervention Provided: verbal cues, monitoring patient response with positional changes, monitoring patient response with activity, patient education For: fall prevention, postural alignment Resulting in: improved activity tolerance, improved safety, improved performance Transfers Skilled Intervention Provided: verbal cues, monitoring patient response with activity, patient education For: postural alignment, efficient movement Resulting in: improved activity tolerance, improved safety, improved performance Functional Transfers (Car and/or Toilet Transfers) Therapeutic Exercises Additional Treatment Details Nursing clearance obtained prior to session. Patient demonstrated one moment of left shoe hitting the floor, requiring min A to maintain upright posture. Patient in bed at end of session, call light within reach and nurse present. Past Medical History: Diagnosis Date Arthritis Avascular necrosis of bone of hip ([facility]) Claudication COPD (chronic obstructive pulmonary disease) ([facility]) Coronary artery disease Herpes zoster Hyperlipidemia Hypertension PAD (peripheral artery disease) ([facility]) 01/21/2022 Posterior tibial tendinitis of right leg 11/07/2022 Prostate cancer ([facility]) Vascular disease Past Surgical History: Procedure Laterality Date 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/08/2018 Procedure: LEFT MIDFOOT AMPUTATION; Surgeon: Flynn Mann DPM; Location: [facility]; Service: Podiatry ANKLE SURGERY Left BYPASS PERONEAL FEMORAL Right 09/07/2018 Procedure: BYPASS PERONEAL FEMORAL, RIGHT SAPHENOUS VEIN HARVEST, COMPLETION ANGIOGRAM; Surgeon: Mohsen Sarabia MD; Location: [facility]; Service: Cardiovascular CARDIAC CATHETERIZATION Left 09/05/2018 Procedure: Angio Lower Extremity; Surgeon: Ben Hahn MD; 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 This note stands as the current Discharge Summary upon patient discharge from the hospital or completion of Physical Therapy Plan. Associated Order(s): IP CONSULT TO CARDIOLOGY - PERIPHERAL VASC DISEASE Images from the original note were not included. Peripheral Vascular Cardiology Inpatient Consult Heart & Vascular [facility] 03/14/2025 Demetrice Escobar, CABINET INSTALLER [facility] [address] Patient: Tristin Powell Date of : 1940 (85 y.o.) Referring Provider: No ref. provider found PCP: Flash Lovelace MD Assessment & Plan Coronary Artery Disease S/p 3v CABG in 2017 Asymptomatic BL Carotid Stenosis Asymptomatic. No hx of CVA Non-invasive Studies: Carotid Duplex (04/2024): Left ICA with mild <50% stenosis of heterogenous plaque. Right ICA with moderate 50-69% stenosis of heterogenous plaque PAD (peripheral artery disease) (HCC) Longstanding, significant atherosclerotic disease with history of multiple endovascular and surgical interventions as outlined in the body of this note, please reference Plan: Continue ASA and statin therapies as prescribed. Critical lower limb ischemia (HCC) Presents from Dr. 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 2+ BL femoral and popliteal pulses.Unable to readily palpate either right or left PT pulses or right DP pulse. Biphasic doppler signals over BL PT pulses. Doppler signal over right AT. No doppler signal over right PT. Reduced sensorimotor function, erythema/dependent rubor, and edema of the right foot. Dorsal surface: insensate to until the arch. Plantar surface: insensate from toes to the ankle. Plan: Continue to hold Xarelto for now. Heparin gtt if needed for hx of a.fib (not needed from a PV standpoint) Received images from RLE angiograms dated 03/12/25 and 10/12/23 from [facility]. Will review non-invasive studies as obtained earlier today as well as [facility] RLE angiograms with PV attending. Final disposition relative to request for repeat RLE angio +/- intervention to follow in PV attending attestation. Reason for consult: Leg Pain HPI: History of Present Illness: Tristin Powell is a 85 y.o. male with a PMHx most notable for carotid stenosis, HTN, dyslipidemia, HFpEF, ascending/thoracic aortic aneurysm (4.[address] dated 04/2024), CAD (NSTEMI; s/p 3v CABG), paroxysmal a.fib, aortic & mitral valve disease, COPD, CKD stage 3, and left transmetatarsal amputation who presented to an outpatient Vas Surg Admission requested by Dr. Long, Vas Surg, based on outpatient visit conducted earlier today in view of complaints of excruciating right foot pain (particularly right hallux) and concerns for discoloration and digital ischemia. Pain NOT relieved with opioids. Per ED MD, no surgical options, PV consult recommended by Vasc Surg for consideration of LE angio. By chart review, recently underwent formal LE angio on 03/12/25 via [facility]. Follows with Dr. Carvalho, cardiology, at [facility]. Last OV 11/2024. Son is present at bedside. He relates to longstanding RLE claudication within the calf and foot which has slowly progressed over the last 6 months, most intensely - to the point of non-weight bearing and/or limited weight bearing + discoloration over the last week. He has been off of his rivaroxaban (Xarelto) for the last 4-5 days in preparation for the angio he just underwent 2 days ago. He admits to ischemic rest pain overnight x several months with minimal improvement when the leg is placed in a dependent position. He adds the right foot will look white if elevated long enough. His son adds that his father has been experiencing pain with greater intensity that he articulates over the last 3 weeks as he has received several calls wherein his father is in tears because of the pain. He has no wounds. He received his LLE prosthesis in 06/2024. With regard to his recent angio, he relates they told me I was open to about the knee then they hit a block they couldn't get through. His son articulates the pain has impeded his balance and he is concerned about falls. He also states we don't want him to lose that foot too because this is exactly how the left foot started before he lost it - and everything was drawn out. Relevant Vascular History: 06/2024: C demonstrating stable coronary artery disease. Patent 3 out of 3 bypass grafts. Normal left filling pressures. Normal right filling pressures. Mild pulmonary hypertension. Normal cardiac output and cardiac index. Controlled systemic hypertension. 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 Aortic root 4.1-4.5 cm. 09/2018: Left transmetatarsal amputation 08/2018: left femoral-peroneal bypass per Dr. Sarabia on 09/15 following diagnostic LLE angio per Dr. Hahn on 09/05: LLE angio with laser atherectomy of the SFA, pop, TP trunk, and peroneal arteries and stents to SFA/pop/TP trunk per Dr. Vogt on 08/09: 3v CABG (CHAVEZ to diag, SVT to OM1, SVG to PDA) via [facility] 10/2007: [facility] with MARIA ESTHER to LAD and LCx Objective Imaging: I independently reviewed the non-invasive vascular studies and agree with the interpretation(s) ECG 12 Lead Final Result by Interface, Lab Results In [facility] (11/07/2022 1139) Echocardiogram complete w contrast Final Result by Obdulio Mack MD (11/06/2022 1315) Echocardiogram complete Final Result by Emmanuel Connor MD (10/08/2018 1726) Cardiac Catheterization Final Result by Ben Hahn MD (09/05/2018 1614) Review of Systems: The following system(s) were reviewed and negative. Pertinent positive and negative findings are noted in the HPI. [x] Const [x] Eyes [x] ENT [x] Resp [x] CV [x] GI [x] [x] Neuro [x] Musc [] Skin [x] Psych [x] Endo [x] Allergy [x] Heme/Lymph Past Medical History: Diagnosis Date Arthritis Avascular necrosis of bone of hip ([facility]) Claudication COPD (chronic obstructive pulmonary disease) ([facility]) Coronary artery disease Herpes zoster Hyperlipidemia Hypertension PAD (peripheral artery disease) ([facility]) 01/21/2022 Posterior tibial tendinitis of right leg 11/07/2022 Prostate cancer (HCC) Vascular disease Past Surgical History: Procedure Laterality Date 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/08/2018 Procedure: LEFT MIDFOOT AMPUTATION; Surgeon: Flynn Mann DPM; Location: [facility]; Service: Podiatry ANKLE SURGERY Left BYPASS PERONEAL FEMORAL Right 09/07/2018 Procedure: BYPASS PERONEAL FEMORAL, RIGHT SAPHENOUS VEIN HARVEST, COMPLETION ANGIOGRAM; Surgeon: Mohsen Sarabia MD; Location: [facility] OR; Service: Cardiovascular CARDIAC CATHETERIZATION Left 09/05/2018 Procedure: Angio Lower Extremity; Surgeon: Ben Hahn MD; 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; Service: Cardiovascular CARDIAC SURGERY 2017 triple bypass EGD N/A 10/10/2018 Procedure: ESOPHAGOGASTRODUODENOSCOPY; Surgeon: Ben Jensen MD; Location: [facility]; Service: Gastroenterology EYE SURGERY Right 2015 FOOT SURGERY ORTHOPEDIC SURGERY STENT PLACEMENT Family History Problem Relation Age of Onset No Known Problems Mother Heart disease Father Prostate cancer Brother Cancer Paternal Aunt Tobacco Use History[1] Additional History Comments: None Allergies: Doxycycline and Gabapentin HOME Medications: Patient's Medications New Prescriptions No medications on file Previous Medications ALBUTEROL (PROVENTIL) 2.5 MG /3 ML (0.083 %) NEBULIZER SOLUTION Take 3 mL (2.5 mg total) by nebulization every 6 (six) hours as needed for wheezing . ALBUTEROL 90 MCG/ACTUATION INHALER Inhale 2 (two) puffs every 4 (four) hours as needed for wheezing, shortness of breath or cough . ASPIRIN 81 MG CAP Take 1 (one) capsule (81 mg total) by mouth daily . ATORVASTATIN (LIPITOR) 80 MG TABLET Take 0.5 (one-half) tablet (40 mg total) by mouth 2 (two) times a day 1/2 tab . AZELASTINE (ASTELIN) 137 MCG (0.1 %) NASAL SPRAY 1 (one) spray by Each Nare route daily . CALMOSEPTINE 0.44-20.6 % OINT Apply 1 Application topically daily as needed . FLUTICASONE (FLONASE) 50 MCG/ACTUATION NASAL SPRAY 2 (two) sprays by Each Nare route daily . FUROSEMIDE (LASIX) 20 MG TABLET Take 1 (one) tablet (20 mg total) by mouth daily as needed Reasons: visible water retention. IPRATROPIUM-ALBUTEROL (DUO-NEB) 0.5-2.5 MG/3 ML NEBULIZER Take 3 mL by nebulization 3 (three) times a day . LOSARTAN (COZAAR) 50 MG TABLET Take 1 (one) tablet (50 mg total) by mouth daily . METOPROLOL TARTRATE (LOPRESSOR) 50 MG TABLET Take 1 (one) tablet (50 mg total) by mouth 2 (two) times a day . NITROGLYCERIN (NITROSTAT) 0.[address] 1 tablet as needed by sublingual route. OMEPRAZOLE (PRILOSEC) 20 MG CAPSULE Take 1 (one) capsule (20 mg total) by mouth daily . ONDANSETRON (ZOFRAN) 4 MG TABLET OXYCODONE-ACETAMINOPHEN (PERCOCET) 5-325 MG PER TABLET Take 1 (one) tablet by mouth every 6 (six) hours as needed for pain . PNEUMOCOCCAL CONJ. 13-VALENT (PREVNAR 13, PF,) 0.5 ML VACCINE POLYETHYLENE GLYCOL (MIRALAX) 17 GRAM POWDER Take 17 (seventeen) g by mouth daily . RIVAROXABAN (XARELTO) 2.5 MG TABLET Take 1 (one) tablet (2.5 mg total) by mouth 2 (two) times a day . TAMSULOSIN (FLOMAX) 0.4 MG CAPSULE Take 1 (one) capsule (0.4 mg total) by mouth daily . UREA (CARMOL) 40 % CREA ZOLPIDEM (AMBIEN) 10 MG TABLET Take 1 (one) tablet (10 mg total) by mouth nightly as needed . Modified Medications No medications on file Discontinued Medications No medications on file Vital Signs: BP (!) 159/69 (BP Location: Right arm, Patient Position: Sitting) Pulse 78 Temp 97.8 F (36.6 C) (Oral) Resp 18 Ht 6' 2 Wt 113.4 kg (250 lb) SpO2 94% BMI 32.10 kg/m General Appearance: Alert, well appearing, and in no acute distress. HEENT: Head - Normocephalic, atraumatic. Eyes - MAR bilaterally and EOMI. Ears - normal external appearance, hearing intact. Nose - normal, no erythema. Throat - mucous membranes moist, pharynx without lesions. Neck: Supple, trachea midline. No carotid or subclavian bruits. Cardiovascular: S1, S2 normal. No murmurs, rubs, clicks or gallops appreciated. Pluses: 2+ BL radial pulses. 2+ BL femoral and popliteal pulses.Unable to Readily palpate either right or left PT pulses or right DP pulse. Biphasic doppler Signals over BL PT pulses. Doppler signal over right AT. No doppler signal over right PT Respiratory: Lungs clear to auscultation, no wheezes, rales or rhonchi heard. Abdomen: Soft, non-tender, normal bowel sounds, non-distended, no masses or organomegaly appreciated. No aortic or iliac bruits. Neurological: Reduced sensorimotor function, erythema/dependent rubor, and edema of the right foot. Dorsal surface: insensate to until the arch. Plantar surface: insensate from toes to the ankle. Musculoskeletal: No joint tenderness, deformity or swelling. Skin: Normal coloration and turgor. No rashes. See photo Right femoral access site without hematoma Psych: Alert, oriented x 3. Normal mood and affect. No results found for: CHOL , LDLCALC , LDLDIRECT , TRIG , HDL Serum creatinine: 1.12 mg/dL 03/14/25 1128 Estimated creatinine clearance: 55 mL/min Thank you for allowing me to participate in Tristin Powell's care. Should you have any questions regarding their management please do not hesitate to contact me, my mobile number is [phone]. Respectfully, Demetrice Martinez APRN [facility] [1] Social History Tobacco Use Smoking Status Never Smokeless Tobacco Never Cosigned by Ben Hahn MD at 03/14/2025 4:44 PM EDT Associated attestation - Ben Hahn MD - 03/14/2025 4:44 PM EDT Interventional & Peripheral Vascular Cardiology Tristin Powell is a 85 y.o. male with a past medical history significant for CAD with prior CABG, hypertension, stage III CKD, hyperlipidemia, heart failure with preserved ejection fraction, paroxysmal atrial fibrillation, and advanced PAD who presents with Deann 4 critical limb threatening ischemia of the right lower extremity. I met the patient back in 2019 when he presented with left lower extremity pain with a known occlusion of his left SFA and popliteal artery. At that time he was referred for femoral-tibial bypass but unfortunately ultimately required a left transmetatarsal amputation which healed. He was known to have a total occlusion of his right popliteal artery at that time but unfortunately over the past 3 to 4 weeks, and even more intensely over the past 4 to 5 days he describes right lower extremity pain at rest. He underwent angiography 2 days ago in [place] where he was found to have progressive disease in his distal SFA and a known occlusion of his mid right popliteal artery with reconstitution of the peroneal vessel only. The SFA underwent balloon angioplasty to improve geniculate blood flow but unfortunately he remains extremely ischemic. His YAMILE 0.5 on the right lower extremity with flat transmetatarsal and toe waveforms. Past Medical History: Diagnosis Date Arthritis Avascular necrosis of bone of hip ([facility]) Claudication COPD (chronic obstructive pulmonary disease) ([facility]) Coronary artery disease Herpes zoster Hyperlipidemia Hypertension PAD (peripheral artery disease) ([facility]) 01/21/2022 Posterior tibial tendinitis of right leg 11/07/2022 Prostate cancer ([facility]) Vascular disease Allergies: Doxycycline and Gabapentin Current Medications[1] A&O x 3 NAD RRR no m/r/g CTAB S/NT/ND +BS Absent pedal pulses right lower extremity, ruborous and ischemic appearance, diminished sensation to touch but still with normal motor function ECG: Pending Outside angiogram: Reviewed by me, there is severe distal right SFA disease that was treated with angioplasty appropriately. The P2 segment of the popliteal artery is occluded which is chronic and there is faint reconstitution of the peroneal artery in the distal posterior tibial artery as it enters the foot. Impression: Atkinson 4 critical limb threatening ischemia Advanced peripheral artery disease Stage III CKD, stable Plan: I have reviewed his angiogram and YAMILE with our vascular team. Frankly, he has extremely poor options from the endovascular standpoint, and possibly even worse options surgically. The patient is already undergone minor amputation of the left lower extremity but unfortunately is clearly looking at major amputation of the right lower extremity without improvement in blood flow. He has a known thrombosed popliteal artery aneurysm which in 2021 by CTA appears to be around 10 to 12 mm in diameter. We discussed potential heroic attempt at revascularization which would almost certainly require direct access of the peroneal artery and retrograde wiring of his occluded popliteal artery. There is clearly a size discrepancy in the long-term durability is likely to be poor. All of this was discussed at length with the patient. He understands very well the generally poor options that we have before us. For now we will plan on bringing him into the hospital for admission and better pain control Continue unfractionated heparin for his paroxysmal atrial fibrillation We will discuss attempted revascularization early next week and further discussion with our vascular surgery colleagues I personally performed a [id number] diagnostic evaluation on this patient on the same calendar day as the YUE's evaluation (or within 24 hours of a resident's evaluation). I agree with the care plan documented by the YUE/resident with the following additions/comments provided above. Additionally, I have reviewed all relevant labs and studies related to this patient and provided my own interpretation of the relevant studies in my note above. Admitted with these risk variables:Chronic Kidney Disease. Please see assessment and plan for further details. [1] Current Facility-Administered Medications Medication Dose Route Frequency Provider Last Rate Last Admin acetaminophen (TYLENOL) tablet 650 mg 650 mg Oral Q4H While awake Muna Otto MD 650 mg at 03/14/25 1456 HYDROmorphone (DILAUDID) injection 0.5 mg 0.5 mg Intravenous Q3H PRN Muna Otto MD naloxone (NARCAN) injection 0.1 mg 0.1 mg Intravenous PRN Muna Otto MD And naloxone (NARCAN) injection 0.4 mg 0.4 mg Intravenous PRN Muna Otto MD ondansetron (ZOFRAN) injection 4 mg 4 mg Intravenous Q6H PRN Muna Otto MD oxyCODONE-acetaminophen (PERCOCET) 5-325 mg per tablet 1 tablet 1 tablet Oral Q6H PRN Muna Otto MD sodium chloride (PF) (NS) flush 5 mL 5 mL Intravenous PRN Dashawn Stallings PA-C And sodium chloride 0.9% (NS) 0-150 mL/hr Intravenous PRN Dashawn Stallings PA-C Current Outpatient Medications Medication Sig Dispense Refill albuterol 90 mcg/actuation inhaler Inhale 2 (two) puffs every 4 (four) hours as needed for wheezing, shortness of breath or cough . 54 g 3 aspirin 81 mg cap Take 1 (one) capsule (81 mg total) by mouth daily . atorvastatin (LIPITOR) 80 MG tablet Take 0.5 (one-half) tablet (40 mg total) by mouth 2 (two) times a day / tab . azelastine (ASTELIN) 137 mcg (0.1 %) nasal spray 1 (one) spray by Each Nare route daily . Calmoseptine 0.44-20.6 % Oint Apply 1 Application topically daily as needed . fluticasone (FLONASE) 50 mcg/actuation nasal spray 2 (two) sprays by Each Nare route daily . 16 g 12 furosemide (LASIX) 20 MG tablet Take 1 (one) tablet (20 mg total) by mouth daily as needed Reasons: visible water retention. losartan (COZAAR) 50 MG tablet Take 1 (one) tablet (50 mg total) by mouth daily . metoprolol tartrate (LOPRESSOR) 50 MG tablet Take 1 (one) tablet (50 mg total) by mouth 2 (two) times a day . omeprazole (PRILOSEC) 20 MG capsule Take 1 (one) capsule (20 mg total) by mouth daily . oxyCODONE-acetaminophen (PERCOCET) 5-325 mg per tablet Take 1 (one) tablet by mouth every 6 (six) hours as needed for pain . polyethylene glycol (MIRALAX) 17 gram powder Take 17 (seventeen) g by mouth daily . rivaroxaban (XARELTO) 2.5 mg tablet Take 1 (one) tablet (2.5 mg total) by mouth 2 (two) times a day . tamsulosin (FLOMAX) 0.4 mg capsule Take 1 (one) capsule (0.4 mg total) by mouth daily . zolpidem (AMBIEN) 10 mg tablet Take 1 (one) tablet (10 mg total) by mouth nightly as needed . albuterol (PROVENTIL) 2.5 mg /3 mL (0.083 %) nebulizer solution Take 3 mL (2.5 mg total) by nebulization every 6 (six) hours as needed for wheezing . 12 mL 2 ipratropium-albuteroL (DUO-NEB) 0.5-2.5 mg/3 ml nebulizer Take 3 mL by nebulization 3 (three) times a day . nitroGLYCERIN (NITROSTAT) 0.[address] 1 tablet as needed by sublingual route. ondansetron (ZOFRAN) 4 MG tablet pneumococcal conj. 13-valent (Prevnar 13, PF,) 0.5 mL vaccine urea (CARMOL) 40 % Crea VASCULAR SURGERY CONSULT Patient Name: Tristin Powell Reason for Consult: RLE rest pain ASSESSMENT AND PLAN Tristin Powell is a 85 y.o. male with history of arotic stenosis, HTN, dyslipidemia, HFpEF, ascending/thoracic aortic aneurysm (4.[address] dated 04/2024), CAD (NSTEMI; s/p 3v CABG), paroxysmal a.fib, aortic & mitral valve disease, COPD, CKD stage 3, PAD, s/p left fem to peroneal bypass (2018, [facility]), left TMA who presented to [facility] on 03/14/2025 with worsening RLE pain and discoloration. Arterial Duplex (03/14/25): 50-99% stenosis in the right mid SFA YAMILE's (03/14/25): Right YAMILE is 0.50. Left YAMILE is 0.55. CTLI IV Aortic Stenosis -Patient w/ notable history of PAD s/p left fem to peroneal bypass (2018, [facility]) p/w RLE rest pain x 3 days. Work up concerning for SFA stenosis, for which vascular surgery was consulted for. -Patient examined: HDS, AURELIANO, doppler signal present in R PT, foot warm, erythematous and swollen. -Imaging reviewed: As above. Rest of workup still pending. -Labs reviewed: WBC 3.5, Hgb 13.2 -Assessment: Patient's rest pain is likely due to underlying subacute worsening of his underlying PAD. Agree with medical admission, pain control and peripheral cardiology evaluation Plan -Admit to medicine -AC/AP per peripheral cardiology -No urgent surgical intervention indicated at this time -F/u PV cardiology c/s for angio -Vascular surgery will be available as needed -Further plans pending above work up -Discussed with Dr. Sarabia Beena Barraza MD General Surgery Resident, PGY-2 [facility] Please contact surgical editorial intern distribution designer 5PM-6AM and weekends - #[phone] VTS Pager - #[phone] Admitted with these risk variables:None. Please see assessment and plan for further details. HISTORY OF PRESENT ILLNESS Over last three weeks developed some numbness and burning in his right foot, which acutely worsened 5 days ago. It has since been constant, but very severe. Pain located in R foot and ankle. Patient also complains of redness from ankle down and blue/purple color changes in toes. Last dose of aspirin was 03/13/25 AM. Last dose of Xarelto was 03/13/25 AM, he was told to stop due to procedure and stopped afterward due to severe pain. Review of systems otherwise negative unless stated above. PAST MEDICAL, SURGICAL, FAMILY, SOCIAL HISTORY Past Medical History: Diagnosis Date Arthritis Avascular necrosis of bone of hip ([facility]) Claudication COPD (chronic obstructive pulmonary disease) ([facility]) Coronary artery disease Herpes zoster Hyperlipidemia Hypertension PAD (peripheral artery disease) ([facility]) 01/21/2022 Posterior tibial tendinitis of right leg 11/07/2022 Prostate cancer ([facility]) Vascular disease Past Surgical History: Procedure Laterality Date 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/08/2018 Procedure: LEFT MIDFOOT AMPUTATION; Surgeon: Flynn Mann DPM; Location: [facility]; Service: Podiatry ANKLE SURGERY Left BYPASS PERONEAL FEMORAL Right 09/07/2018 Procedure: BYPASS PERONEAL FEMORAL, RIGHT SAPHENOUS VEIN HARVEST, COMPLETION ANGIOGRAM; Surgeon: Mohsen Sarabia MD; Location: [facility]; Service: Cardiovascular CARDIAC CATHETERIZATION Left 09/05/2018 Procedure: Angio Lower Extremity; Surgeon: Ben Hahn MD; 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; Service: Cardiovascular CARDIAC SURGERY 2017 triple bypass EGD N/A 10/10/2018 Procedure: ESOPHAGOGASTRODUODENOSCOPY; Surgeon: Ben Jensen MD; Location: [facility]; Service: Gastroenterology EYE SURGERY Right 2015 FOOT SURGERY ORTHOPEDIC SURGERY STENT PLACEMENT Family History Problem Relation Age of Onset No Known Problems Mother Heart disease Father Prostate cancer Brother Cancer Paternal Aunt Social History [1] PHYSICAL EXAM VITALS BP (!) 159/69 (BP Location: Right arm, Patient Position: Sitting) Pulse 78 Temp 97.8 F (36.6 C) (Oral) Resp 18 Ht 6' 2 Wt 113.4 kg (250 lb) SpO2 94% BMI 32.10 kg/m PHYSICAL EXAM General: Awake and alert, no acute distress Head: Normocephalic, atraumatic Eyes: No scleral icterus, EOM grossly intact Neck: Trachea midline Cardiovascular: Hemodynamically stable, regular rate Pulmonary: Nonlabored breathing, equal chest rise Extremities: LLE with evidence of TMA. RLE foot and distal ankle appear red and swollen. Doppler signal present in PT of LLE. No gangrene. Motor and sensory intact Skin: Dry and intact, no obvious rash Neurological: LUU, no gross focal deficits GI: Abd soft, nondistended. IMAGING/LABS Interval imaging and laboratory results reviewed [1] Social History Socioeconomic History Marital status: Tobacco Use Smoking status: Never Smokeless tobacco: Never Vaping Use Vaping status: Never Used Substance and Sexual Activity Alcohol use: Not Currently Drug use: Never Sexual activity: Not Currently Social Drivers of Health Financial Resource Strain: Low Risk (06/21/2024) Received from [facility] Overall Financial Resource Strain (CARDIA) Difficulty of Paying Living Expenses: Not hard at all Food Insecurity: No Food Insecurity (06/21/2024) Received from [facility] Hunger Vital Sign Worried About Running Out of Food in the Last Year: Never true Ran Out of Food in the Last Year: Never true Transportation Needs: No Transportation Needs (06/21/2024) Received from [facility] PRAPARE - Transportation Lack of Transportation (Medical): No Lack of Transportation (Non-Medical): No Physical Activity: Insufficiently Active (06/21/2024) [facility] from [facility] [facility] Exercise Vital Sign Days of Exercise per Week: 7 days Minutes of Exercise per Session: 10 min Stress: No Stress Concern Present (06/21/2024) Received from [facility] Citizen Of [place] of Occupational Health - Occupational Stress Questionnaire Feeling of Stress : Not at all Housing Stability: Low Risk (06/21/2024) Received from [facility] Housing Stability Vital Sign Unable to Pay for Housing in the Last Year: No Number of Times Moved in the Last Year: 0 Homeless in the Last Year: No Cosigned by Mohsen Sarabia MD at 03/16/2025 10:33 AM EDT Associated attestation - Mohsen Sarabia MD - 03/16/2025 10:33 AM EDT Patient seen and examined. I have personally reviewed all pertinent labs, radiological studies and records. I have personally examined the patient and agree with resident/ARTIFICIAL FLOWER MAKER/PA assessment and plan with the following additional findings. Pt known to me with CLTI of the RLE with rest pain and early ischemic skin changes. Plan for R fem tib bypass on Monday for limb salvage documented in this encounter [facility] 03-21-2025 Plan of care note Problem: Actual or potential alteration in health Goal: Absence of healthcare acquired conditions Outcome: Partially Met Goal: Knowledge of Interdisciplinary Plan of Care Outcome: Partially Met Goal: Knowledge of Enviroment Outcome: Partially Met Problem: Pain Goal: Reduced pain sensation Outcome: Partially Met Goal: Control of acute pain to acceptable level Outcome: Partially Met Goal: Able to cope with pain Outcome: Partially Met Goal: Able to achieve maximum level of physical functioning Outcome: Partially Met Goal: Able to achieve maximum level of psychosocial functioning Outcome: Partially Met Problem: Falls, Risk of Goal: Absence of falls Outcome: Partially Met Goal: Absence of physical injury Outcome: Partially Met Problem: Pressure Injury, Risk of Goal: Absence of pressure injury Outcome: Partially Met [facility] 03-21-2025 Miscellaneous Notes Problem: Actual or potential alteration in health Goal: Absence of healthcare acquired conditions Outcome: Partially Met Goal: Knowledge of Interdisciplinary Plan of Care Outcome: Partially Met Goal: Knowledge of Enviroment Outcome: Partially Met Problem: Pain Goal: Reduced pain sensation Outcome: Partially Met Goal: Control of acute pain to acceptable level Outcome: Partially Met Goal: Able to cope with pain Outcome: Partially Met Goal: Able to achieve maximum level of physical functioning Outcome: Partially Met Goal: Able to achieve maximum level of psychosocial functioning Outcome: Partially Met Problem: Falls, Risk of Goal: Absence of falls Outcome: Partially Met Goal: Absence of physical injury Outcome: Partially Met Problem: Pressure Injury, Risk of Goal: Absence of pressure injury Outcome: Partially Met 03/20/2025: Nutrition Note Reason for visit: Dietitian Screen Nutrition Diagnosis: Increased energy and protein needs related to wound healing as evidenced by estimated needs. Nutrition Intervention/Plan: Continue diet as ordered Nutrition Prescription: Diet Regular; Regular Oral nutrition supplement: Boost Plus (360kcaks, 14g protein) at breakfast Nutrition Goals: Tolerate diet with intake of meals/supplements >50% Start Date:03/20/2025 Expected End Date:03/26/2025 Nutrition Education: Pt/family education: Learner: Patient Educated on: Increased need for protein intake to promote healing and reviewed foods that provide protein. Also discussed the need to limit salt intake due to chronic diastolic heart failure and CKD. Readiness: accepting Method: verbal discussion Response: Patient expresses understanding about the need to increase protein intake while healing. He limits how much salt he uses but otherwise is not interested in altering his diet. Assessment: Pertinent clinical information: 85 y.o. male with a history of Peripheral Artery Disease s/p Bypass, Afib (Xarelto), Diastolic Heart Failure, Coronary Artery Disease s/p CABG, recent balloon angioplasty 03/12/2025,. presented to [facility] ED on 03/14/2025 from Vascular Surgery clinic with intractable right foot pain. Found to have critical right LE ischemia. S/p angiogram 03/17/25 with R SFA to peroneal bypass. Past Medical History: Diagnosis Date Arthritis Avascular necrosis of bone of hip ([facility]) Claudication COPD (chronic obstructive pulmonary disease) ([facility]) Coronary artery disease Herpes zoster Hyperlipidemia Hypertension PAD (peripheral artery disease) ([facility]) 01/21/2022 Posterior tibial tendinitis of right leg 11/07/2022 Prostate cancer ([facility]) Vascular disease Past Surgical History: Procedure Laterality Date 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/08/2018 Procedure: LEFT MIDFOOT AMPUTATION; Surgeon: Flynn Mann DPM; Location: [facility]; Service: Podiatry ANKLE SURGERY Left BYPASS FEMOROTIBIAL REPAIR/GRAFT Right 03/17/2025 Procedure: RIGHT FEMORAL TO TIBIAL BYPASS WITH ARM VEIN. 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 He has some pizza at bedside that he ate for lunch. He usually eats 2-3 meals per day at home. He lives with his two brothers and has help with meals as needed. Per son, patient routinely eats meat products, vegetables and fruits. Wt: Current Weight: 110.2 kg (242 lb 15.2 oz), Height: 6' 2 Current BMI: Body mass index is 31.19 kg/m . BMI Classification: Obesity Class I (BMI 30-34.9) Weight History: Wt Readings from Last 5 Encounters: 03/14/25 110.2 kg (242 lb 15.2 oz) 03/14/25 113.4 kg (250 lb) 08/09/23 104.3 kg (230 lb) 11/03/22 113.4 kg (250 lb) 05/23/22 113.9 kg (251 lb) Estimated Energy Needs Total Energy Estimated Needs: 2207-2649kcal Method for Estimating Needs: 25-30kcal/kg on BMI 25(88.3kg) Total Protein Estimated Needs: 106-132g Method for Estimating Needs: 1.2-1.5g/kg on BMI 25(88.3kg) Current diet order: Regular ONS: n/a Recent intake: 75-100% x 2 meals, 50-75% x 2 meals Current intake likely meets estimated needs. Nutrition Related Allergies/Intolerances: No Nutrition Related Allergies noted Cultural or Confucianist Dietary Needs :No Cultural or Confucianist Dietary needs noted Difficulty Chewing or Swallowing: No Skin Integrity: incision right leg, incision left leg, acute sacral wound GI Function: LBM 7/20 per flowsheets Edema: generalized edema, per flowsheet Nutrition-Focused Physical Exam: no overt s/sx of fat/muscle loss on visual exam; appears to have age related changes Labs: Recent Labs 03/18/25 0401 03/19/25 0455 03/20/25 0438 NA 140 140 139 K 4.1 5.0 4.1 BICARB 19* 24 22 CL 109* 108 107 GLUCOSE 111* 109* 97 BUN 18 22 20 CREATININE 1.05 1.12 0.97 MG 2.1 2.4 2.2 Recent Labs 03/18/25 0401 03/19/25 0455 03/20/25 0438 GLUCOSE 111* 109* 97 Lab Results Component Value Date HGBA1C 4.7 10/04/2018 Home Medications Reviewed: Yes Pertinent home meds: Lipitor, Miralax, Lasix Scheduled Meds: acetaminophen 650 mg Oral Q4H While awake aspirin 81 mg Oral Daily atorvastatin 80 mg Oral Nightly azelastine 1 spray Each Nare Daily furosemide 20 mg Oral Every Other Day losartan 50 mg Oral Daily with lunch metoprolol tartrate 50 mg Oral BID pantoprazole 40 mg Oral Daily polyethylene glycol 17 g Oral Daily rivaroxaban 2.5 mg Oral BID tamsulosin 0.4 mg Oral After evening meal zolpidem 10 mg Oral Nightly Continuous Infusions: sodium chloride Serenity Wilson RD,LD,[facility] Vocera or in AVOB Secure Chat Problem: Actual or potential alteration in health Goal: Absence of healthcare acquired conditions Outcome: Partially Met Goal: Knowledge of Interdisciplinary Plan of Care Outcome: Partially Met Goal: Knowledge of Enviroment Outcome: Partially Met Problem: Pain Goal: Reduced pain sensation Outcome: Partially Met Goal: Control of acute pain to acceptable level Outcome: Partially Met Goal: Able to cope with pain Outcome: Partially Met Goal: Able to achieve maximum level of physical functioning Outcome: Partially Met Goal: Able to achieve maximum level of psychosocial functioning Outcome: Partially Met Problem: Falls, Risk of Goal: Absence of falls Outcome: Partially Met Goal: Absence of physical injury Outcome: Partially Met Problem: Pressure Injury, Risk of Goal: Absence of pressure injury Outcome: Partially Met Problem: Actual or potential alteration in health Goal: Absence of healthcare acquired conditions Outcome: Partially Met Goal: Knowledge of Interdisciplinary Plan of Care Outcome: Partially Met Goal: Knowledge of Enviroment Outcome: Partially Met Problem: Pain Goal: Reduced pain sensation Outcome: Partially Met Goal: Control of acute pain to acceptable level Outcome: Partially Met Goal: Able to cope with pain Outcome: Partially Met Goal: Able to achieve maximum level of physical functioning Outcome: Partially Met Goal: Able to achieve maximum level of psychosocial functioning Outcome: Partially Met Problem: Falls, Risk of Goal: Absence of falls Outcome: Partially Met Goal: Absence of physical injury Outcome: Partially Met Problem: Pressure Injury, Risk of Goal: Absence of pressure injury Outcome: Partially Met Brief Post Operative Note Patient Name: Tristin Powell : 1940 (85 y.o.) Date of Service: 03/17/2025 CSN: [id number] Procedure(s): RIGHT FEMORAL TO TIBIAL BYPASS WITH ARM VEIN. Angiogram Pre-Operative Diagnoses: * PERIPHERAL ARTERY DISEASE Post-Operative Diagnoses: same Surgeons and Role: * Mohsen Sarabia MD - Primary * Karina Orozco MD - Resident - Assisting Anesthesiologist: Serjio Olivarez MD; Muna Gil MD SPRINKLER DRIVER: Viviana Dhillon CRNA Stranding Supervisor: Lori Diaz RN Medical Radiation Tech: Jose C Ambrose, TECHNOLOGIST Stranding Supervisor Relief: Millicent Cedeño RN; Arlene Watson RN Scrub Person Relief: Izabel Bosch RN Stranding Supervisor Orientee: Kaylie Jason RN Stranding Supervisor Preceptor: Izabel Bosch RN Scrub Person Preceptor: Lorraine Zhao ST Scrub Person Orientee: Juan Edmonds RN Operative findings: RLE distal SFA to peroneal bypass w/ reversed LUE cephalic vein, completion angio w/ diminutive runoff via peroneal Intra and immediate post-operative complications: none Type of anesthesia used: General Estimated blood loss: 50 mL Estimated urine output: Specimen(s): * No specimens in log * Implant(s): Implant Name Type Inv. Item Serial No. Sewer Connector Lot No. [id number] No. Used Action HEMOSTAT 2 X 4IN SURGICEL FIBRILLAR - SNA HEMOSTAT 2 X 4IN SURGICEL FIBRILLAR NA ETHICON [id number] Right 1 Implanted SEALANT 10ML HEMOSTATIC MATRIX FAST PREP FLOSEAL W/RECOTHROM - [id number] SEALANT 10ML HEMOSTATIC MATRIX FAST PREP FLOSEAL W/RECOTHROM [employer] BIO [id number] Right 1 Implanted Drain(s): Urethral Catheter Non-latex;Straight-tip 16 Fr. (Active) Wound(s): Wound 11/04/22 Chronic Ankle;BKA;Other: Anterior;Left (Active) Wound 03/14/25 Acute Sacral Left (Active) Reassessment Unchd 03/16/25 1818 Dressing Status Open to air 03/16/252000 Drainage Amount None 03/14/25 2100 Drainage Description None 03/14/25 2100 Odor None 03/14/25 2100 Primary Dressing Bordered Foam (e.g. mepilex) 03/16/25 0840 Wound 03/17/25 1 Incision Upper Arm Anterior;Left (Active) Wound Closure Sutures 03/14/25 0007 Wound 03/17/25 2 Incision Pre-tibial Proximal;Right (Active) Wound Closure Sutures 03/14/25 0007 Wound 03/17/25 1 Incision Upper Leg Distal;Right;Medial (Active) Wound Closure Approximated;Sutures 03/14/256 [REMOVED] Wound 11/04/22 Buttock Left (Removed) Dressing Status Applied 03/14/252099 Drainage Amount None 03/14/252099 Drainage Description None 03/14/252099 Primary Dressing Bordered Foam (e.g. mepilex) 03/14/252099 Did the case consist of ANY colon or uterine surgery? NO Karina Orozco MD 03/17/2025 4:30 PM Asked to provide cardiac risk stratification for upcoming vascular surgery. Patient with history of CABG in 2017 and ECHO within the last year (04/2024). He has preserved EF with no clinical signs of heart failure. He denies angina. Discussed case collaboratively with Dr. Mast. Ok to proceed for vascular surgery at acceptable cardiac risk without additional cardiac testing. Cosigned by Mary Mast MD at 03/17/2025 7:03 PM EDT Associated attestation - Mary Mast MD - 03/17/2025 7:03 PM EDT I have discussed the case in detail the patient and with Catina, and agree with her note. The patient has normal left ventricular function by echocardiography within the last year, had revascularization with CABG, and has no symptoms of chest pain or anginal equivalent symptoms or symptoms or findings of heart failure. He has critical limb ischemia. In this setting, I believe he is an acceptable risk from a cardiovascular standpoint, and should proceed without further testing. I do not believe any further testing or procedures would improve his cardiovascular risk and may unnecessarily delay his procedure. Again from our standpoint is okay to proceed with cardiac clearance provided. We will be available as needed for any cardiac issues. PHYSICAL THERAPY VISIT VARIANCE NOTE Attempted to see patient at this time, but unable secondary to: Awaiting Medical Clearance (comment) (scheduled for OR today). Will follow up as appropriate. OCCUPATIONAL THERAPY VISIT VARIANCE NOTE Attempted to see patient at this time, but unable secondary to: Awaiting Medical Clearance (Pending OR today). Will follow up as appropriate. Bedside report was completed including the discussion of the following, if applicable: Electronic Medical Record Review Deterioration Index (DI) Score Physician orders - active & held orders MAR - overdue & held meds Infusing medications/fluids HAND OFF COMPLETED IN OCT Peripheral IVs IV dressing clean, dry, and intact IV tubing changed less than 96 hours IV tubing dated, initialed, labeled IV changed less than equal to 96 hours Skin Integrity Turning schedule and last turned Dressings clean, dry, and intact Skin Assessment completed - Falls Fall risk score Intervention Bundle (check all in place) Door sign Bed/Chair Alarm on Fall Risk band Non-skid socks Patient centered interventions TELE Leads connected Tele Box on and working appropriately Verified by note author and KULDEEP Jean. Added to supervisor labor gang schedule for 03/17/25, with Dr. Mast for a RLE angio +/- intervention. Orders placed. Consent signed and given to supervisor labor gang. ASA and clopidogrel initiated. Again, no heparin gtt required unless needed in the setting of hx of paroxysmal a.fib (historically on Xarelto; however, has been held over the past week 2/2 RLE angio at [facility] as performed on 03/12/25). Additionally, please accept the corrections to my initial consult note (A/P & P/E sections) as listed below as I am unable to attend the original document post attestation: 2+ BL femoral and popliteal pulses. Unable [...] grossly insensate from toes to the ankle. This nurse was able to get RLE angiogram from March 12, 2025 from [facility] sent electronically. This was sent to Juana Escobar NP. She was able to open and view. Images sent to appropriate staff per Juana Escobar CNP. Called and notified the patient's daughter that she does not have to get the disc from [place] and bring to [facility]. Associated Problem(s): Carotid stenosis, asymptomatic, bilateral Asymptomatic. No hx of CVA Non-invasive Studies: Carotid Duplex (04/2024): Left ICA with mild <50% stenosis of heterogenous plaque. Right ICA with moderate 50-69% stenosis of heterogenous plaque Associated Problem(s): Coronary artery disease involving coronary bypass graft of [place] heart without angina pectoris S/p 3v CABG in 2017 Asymptomatic Associated Problem(s): Critical lower limb ischemia (HCC) Presents from Dr. 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 Mast Continue asa and Plavix therapies We will continue to monitor over the weekend Associated Problem(s): PAD (peripheral artery disease) (HCC) Longstanding, significant atherosclerotic disease with history of multiple endovascular and surgical interventions as outlined in the body of this note, please reference Plan: Continue ASA and statin therapies as prescribed. documented in this encounter [facility] 03-20-2025 Initial evaluation note 03/20/2025: Nutrition Note Reason for visit: Dietitian Screen Nutrition Diagnosis: Increased energy and protein needs related to wound healing as evidenced by estimated needs. Nutrition Intervention/Plan: Continue diet as ordered Nutrition Prescription: Diet Regular; Regular Oral nutrition supplement: Boost Plus (360kcaks, 14g protein) at breakfast Nutrition Goals: Tolerate diet with intake of meals/supplements >50% Start Date:03/20/2025 Expected End Date:03/26/2025 Nutrition Education: Pt/family education: Learner: Patient Educated on: Increased need for protein intake to promote healing and reviewed foods that provide protein. Also discussed the need to limit salt intake due to chronic diastolic heart failure and CKD. Readiness: accepting Method: verbal discussion Response: Patient expresses understanding about the need to increase protein intake while healing. He limits how much salt he uses but otherwise is not interested in altering his diet. Assessment: Pertinent clinical information: 85 y.o. male with a history of Peripheral Artery Disease s/p Bypass, Afib (Xarelto), Diastolic Heart Failure, Coronary Artery Disease s/p CABG, recent balloon angioplasty 03/12/2025,. presented to [facility] ED on 03/14/2025 from Vascular Surgery clinic with intractable right foot pain. Found to have critical right LE ischemia. S/p angiogram 03/17/25 with R SFA to peroneal bypass. Past Medical History: Diagnosis Date Arthritis Avascular necrosis of bone of hip ([facility]) Claudication COPD (chronic obstructive pulmonary disease) ([facility]) Coronary artery disease Herpes zoster Hyperlipidemia Hypertension PAD (peripheral artery disease) ([facility]) 01/21/2022 Posterior tibial tendinitis of right leg 11/07/2022 Prostate cancer ([facility]) Vascular disease Past Surgical History: Procedure Laterality Date 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/08/2018 Procedure: LEFT MIDFOOT AMPUTATION; Surgeon: Flynn Mann DPM; Location: [facility]; Service: Podiatry ANKLE SURGERY Left BYPASS FEMOROTIBIAL REPAIR/GRAFT Right 03/17/2025 Procedure: RIGHT FEMORAL TO TIBIAL BYPASS WITH ARM VEIN. 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 He has some pizza at bedside that he ate for lunch. He usually eats 2-3 meals per day at home. He lives with his two brothers and has help with meals as needed. Per son, patient routinely eats meat products, vegetables and fruits. Wt: Current Weight: 110.2 kg (242 lb 15.2 oz), Height: 6' 2 Current BMI: Body mass index is 31.19 kg/m . BMI Classification: Obesity Class I (BMI 30-34.9) Weight History: Wt Readings from Last 5 Encounters: 03/14/25 110.2 kg (242 lb 15.2 oz) 03/14/25 113.4 kg (250 lb) 08/09/23 104.3 kg (230 lb) 11/03/22 113.4 kg (250 lb) 05/23/22 113.9 kg (251 lb) Estimated Energy Needs Total Energy Estimated Needs: 2207-2649kcal Method for Estimating Needs: 25-30kcal/kg on BMI 25(88.3kg) Total Protein Estimated Needs: 106-132g Method for Estimating Needs: 1.2-1.5g/kg on BMI 25(88.3kg) Current diet order: Regular ONS: n/a Recent intake: 75-100% x 2 meals, 50-75% x 2 meals Current intake likely meets estimated needs. Nutrition Related Allergies/Intolerances: No Nutrition Related Allergies noted Cultural or Confucianist Dietary Needs :No Cultural or Confucianist Dietary needs noted Difficulty Chewing or Swallowing: No Skin Integrity: incision right leg, incision left leg, acute sacral wound GI Function: LBM 7/20 per flowsheets Edema: generalized edema, per flowsheet Nutrition-Focused Physical Exam: no overt s/sx of fat/muscle loss on visual exam; appears to have age related changes Labs: Recent Labs 03/18/25 0401 03/19/25 0455 03/20/25 0438 NA 140 140 139 K 4.1 5.0 4.1 BICARB 19* 24 22 CL 109* 108 107 GLUCOSE 111* 109* 97 BUN 18 20 CREATININE 1.05 1.12 0.97 MG 2.1 2.4 2.2 Recent Labs 03/18/25 0401 03/19/25 0455 03/20/25 0438 GLUCOSE 111* 109* 97 Lab Results Component Value Date HGBA1C 4.7 10/04/2018 Home Medications Reviewed: Yes Pertinent home meds: Lipitor, Miralax, Lasix Scheduled Meds: acetaminophen 650 mg Oral Q4H While awake aspirin 81 mg Oral Daily atorvastatin 80 mg Oral Nightly azelastine 1 spray Each Nare Daily furosemide 20 mg Oral Every Other Day losartan 50 mg Oral Daily with lunch metoprolol tartrate 50 mg Oral BID pantoprazole 40 mg Oral Daily polyethylene glycol 17 g Oral Daily rivaroxaban 2.5 mg Oral BID tamsulosin 0.4 mg Oral After evening meal zolpidem 10 mg Oral Nightly Continuous Infusions: sodium chloride Serenity Wilson RD,LD,[facility] Vocfort worth or in AVOB Secure Chat [facility] 03-20-2025 Note [facility] Note 03/20/2025 Tristin Bazan Sherry 1940 [id number] Assessment/Plan: Tristin Powell is a 85 y.o. male with a history of Peripheral Artery Disease s/p Bypass, Afib (Xarelto), Diastolic Heart Failure, Coronary Artery Disease s/p CABG, recent balloon angioplasty 03/12/2025,. presented to [facility] ED on 03/14/2025 from Vascular Surgery clinic with intractable right foot pain. Found to have critical right LE ischemia Critical right lower limb ischemia: History of PAD. Follows Dr. Beaver ([facility]) and Dr. Sarabia (Vascular Surgery) s/p left femoral to peroneal bypass using contralateral reverse greater saphenous vein and partial left foot amputation (09/07/2018 - Dr. Sarabia). S/p angiogram 03/12/25 (Dr. Beaver) with balloon of SFA. Arterial Duplex 03/14/25: 50-99% stenosis in the right mid superficial femoral artery. ABIs 03/14/25: With severe 1 small vessel disease of the right foot. Continued ASA, statin and heparin gtt. S/p Plavix. Resume home AC as able. S/p angiogram 03/17/25 with R SFA to peroneal bypass. Repeat ABIs 03/20/25 ordered. [facility] following. Acute on Chronic Pain Syndrome: with opiate dependence. Continued home Percocet with increased dose. S/p IV pain meds. CAD: Followed by [facility] s/p 3 vessel coronary artery bypass grafting in 2017 and 7 stents. Meds as above Chronic Diastolic Heart Failure: TTE 04/2024: LVEF 55% grade 1 diastolic dysfunction, moderate aortic regurgitation, moderate mitral regurgitation, mild tricuspid regurgitation. Appeared euvolemic on admission. Continued home losartan and lasix every other day. Paroxysmal Afib: Held home Xarelto on admit. Continued Lopressor. S/p heparin gtt, resumed xarelto. Valvular disease: Mild to moderate aortic valve regurg and mild to moderate mitral valve regurg, mild tricuspid and pulmonic valve regurg. Shown on echo 05/13/2024. Outpatient surveillance advised. Aortic root dilatation: 4.1 cm on echo. Patient surveillance Lymphopenia: Baseline WBC normal. WBC of 3.5 (ANC 1.9k) on 03/14/2025. WBC 4.27 03/16/2025 Prolonged QTc: 502-03/15/2025. Previously stable. Repeat 464. Monitor. CKD IIIa: Baseline SCr ~1.2, SCr 1.1 on 03/14/25. Monitored. Chronic Anemia: baseline Hgb ~11-13. Hgb of 13.2 (MCV 91) on 03/14/25. Asymptomatic bilateral carotid stenosis: No history of CVA. Shown on duplex 04/2024. AC/AP as above Insomnia: Continue zolpidem Prostate Cancer: s/p brachytherapy, reportedly in remission. COPD: no evidence of acute exacerbation on admit. Reduced Mobility: present prior to admission. PTOT. Class I Obesity: Body mass index is 32.1 kg/m . Recommended lifestyle changes. 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 Estimated discharge date: TBD pending placement Medically Ready for Discharge: no Subjective: Pt seen at bedside vitals reviewed. No acute events overnight. Doing well this morning. Pt still feeling weak and ongoing drowsiness. Will stop muscle relaxant to see if that helps. Discussed with pt and son bedside about dispo. He lives with his two brothers (in their 80s) and worried about mobility. Now agreeable to short SNF stay. Discussed with SW. Labs personally reviewed: BMP WNL, Hgb 10 Physical Exam: BP 139/69 (BP Location: Right arm, Patient Position: Lying) Pulse 87 Temp 98.1 degrees F (36.7 degrees C) (Oral) Resp (!) 22 Ht 6' 2 Wt 110.2 kg (242 lb 15.2 oz) SpO2 93% BMI 31.19 kg/m General: NAD Eyes: EOMI, sclera clear ENT: neck supple Cardiovascular: Regular rate, no murmur Respiratory: Clear to auscultation, symmetric air entry Gastrointestinal: Soft, non tender, non distended, positive bowel sounds Genitourinary: no CVA tenderness Musculoskeletal: no major joint deformity: RLE tired leg and comber tender to touch. Moving well with mild pain.: Decreased sensation in the foot. Warm. Left midfoot amputation Skin: warm, dry, no LE edema Neuro: Alert, oriented x3, no focal motor deficits Psych: Mood appropriate Current Medications: acetaminophen 650 mg Oral Q4H While awake aspirin 81 mg Oral Daily atorvastatin 80 mg Oral Nightly azelastine 1 spray Each Nare Daily cyclobenzaprine 10 mg Oral Q8H SADIA furosemide 20 mg Oral Every Other Day losartan 50 mg Oral Daily with lunch metoprolol tartrate 50 mg Oral BID pantoprazole 40 mg Oral Daily polyethylene glycol 17 g Oral Daily rivaroxaban 2.5 mg Oral BID tamsulosin 0.4 mg Oral After evening meal zolpidem 10 mg Oral Nightly Labs, Imaging and Studies reviewed: Results from last 7 days Lab Units 03/20/25 0438 03/19/25 0455 03/18/25 0401 WBC K/mcL 4.86 4.34* 5.05 HG (more content not included)... [facility] 03-20-2025 Note VASCULAR SURGERY PRO LUCY NOTE Patient Name: Tristin Powell Reason for Consult: RLE rest pain ASSESSMENT AND PLAN Tristin Powell is a 85 y.o. male with history of arotic stenosis, HTN, dyslipidemia, HFpEF, ascending/thoracic aortic aneurysm (4.[address] dated 04/2024), CAD (NSTEMI; s/p 3v CABG), paroxysmal a.fib, aortic & mitral valve disease, COPD, CKD stage 3, PAD, s/p left fem to peroneal bypass ([facility], [facility]), left TMA who presented to [facility] on 03/14/2025 with worsening RLE pain and discoloration. Arterial Duplex (03/14/25): 50-99% stenosis in the right mid SFA YAMILE's (03/14/25): Right YAMILE is 0.50. Left YAMILE is 0.55. CTLI IV Aortic Stenosis -Admitted to medicine -s/p RLE distal SFA to peroneal bypass w/ reversed LUE cephalic vein, completion angio w/ diminutive runoff via peroneal (03/17, [facility]) -Regular diet -Continue to encourage UOOB, AAT, IS -Continue ASA 81 -Repeat ABIs this morning -Will discuss with Dr. Sarabia TREV COLEMAN MD General Surgery Resident, PGY-1 [facility] Please contact surgical editorial intern distribution designer 5PM-6AM and weekends - #[phone] VTS Pager - #[phone] Subjective NAEO. Has been ambulating. New bruising near R toe, discussed with patient that its likely a small clot that was dislodged during procedure, should slowly go away with AC. No other concerns. PHYSICAL EXAM VITALS BP 139/69 (BP Location: Right arm, Patient Position: Lying) Pulse 87 Temp 98.1 degrees F (36.7 degrees C) (Oral) Resp (!) 22 Ht 6' 2 Wt 110.2 kg (242 lb 15.2 oz) SpO2 93% BMI 31.19 kg/m PHYSICAL EXAM General: Awake and alert, no acute distress Head: Normocephalic, atraumatic Eyes: No scleral icterus, EOM grossly intact Neck: Trachea midline Cardiovascular: Hemodynamically stable, regular rate Pulmonary: Nonlabored breathing, equal chest rise Extremities: No obvious deformities. Doppler signal present in PT and peroneal of LLE. Motor and sensory intact Skin: Dry and intact, no obvious rash. R great toe with bruising on the medial surface and underneath the nail bed. Picture in chart. Neurological: LUU, no gross focal deficits GI: Abd soft, nondistended. IMAGING/LABS Interval imaging and laboratory results reviewed AUTHENTICATED BY TREV COLEMAN ON 03/20/2025 07:05:30 [facility] 03-20-2025 Plan of care note Problem: Actual or potential alteration in health Goal: Absence of healthcare acquired conditions Outcome: Partially Met Goal: Knowledge of Interdisciplinary Plan of Care Outcome: Partially Met Goal: Knowledge of Enviroment Outcome: Partially Met Problem: Pain Goal: Reduced pain sensation Outcome: Partially Met Goal: Control of acute pain to acceptable level Outcome: Partially Met Goal: Able to cope with pain Outcome: Partially Met Goal: Able to achieve maximum level of physical functioning Outcome: Partially Met Goal: Able to achieve maximum level of psychosocial functioning Outcome: Partially Met Problem: Falls, Risk of Goal: Absence of falls Outcome: Partially Met Goal: Absence of physical injury Outcome: Partially Met Problem: Pressure Injury, Risk of Goal: Absence of pressure injury Outcome: Partially Met [facility] 03-19-2025 Consult note Associated Order (s): IP CONSULT TO CARE MANAGEMENT; IP CONSULT TO CARE MANAGEMENT Care Management Progress Note Date: 03/19/2025 Time: 8:58 AM Patient Name: Tristin Powell Date of : 1940 Discharge Plan: D/C Disposition: Home Health Care Services Related to Current Admission?: Yes Plan A: Home Health Care Services Plan B: Home Discharging Transportation Plan: Transportation Type: Auto Discharge Plan Status: home vs faciltiy CM following and reconsulted for dc needs. Chart reviewed, patient last able to work with therapy 03/18, current recs are up to 5 with ampac of 10. Per previous [facility] note, patient was agreeable to [facility] services prior to OR 03/17. Patient was independent prior to admission, hopeful for progression with therapy to proceed with home going plan. Otherwise will explore facility route if interested. If agreeable to facility, will need precert. Will continue to follow as patient progresses medically. Addendum 1355: spoke with patient at bedside. Patient only wants home going plan. Will still plan for [facility] once ready for discharge. Assessment and Background Information: [facility] 03-19-2025 Consult note Formatting of th is note is different from the original. Occupational Therapy OCCUPATIONAL THERAPY EVALUATION AND TREATMENT NOTE OCCUPATIONAL THERAPY EVALUATION Skilled Therapy Needs After Discharge Anticipate Resolution of Current Assessment Limitations Including: Pain, Mechanical Barriers Are OT Skilled Therapy Services Needed After Discharge: Yes Intensity of OT Skilled Therapy: Up to 5 days per week Anticipated Duration of OT Skilled Therapy: Duration 7 - 10 days OT DME Recommendation: To be determined at next level of care Rehab Potential: Good Outcomes Measures Prior Function Daily Activity Raw Score: 24 Prior Function Daily Activity % Impaired: 0% AM-PAC Daily Activity Raw Score: 17 AM-PAC Daily Activity % Impaired: 50.11% Occupational Therapy Assessment The patient's current functional participation deficits are grooming, UE dressing, LE dressing, bathing, toileting, home management, hobbies, functional mobility, driving. This reduced independence will limit their life roles of premorbid level individual, parent, family member, community member. The patient's co morbidities do affect patient performance in the above activities and roles. The performance deficits are a result of musculoskeletal, vascular impairment(s) in generalized debility, lower extremity, global systems including acitvity tolerance, pain, insight, safety, and knowledge deficit, pain intolerance. The patient's home setup is a geek squad manager for return to prior level of function. The patient's compliance is a barrier, awareness of own capacity and performance is a geek squad manager to return to prior level of function. During the assessment, minimal to moderate modification of task was required and several treatment options were identified in the plan of care. This consultation required expanded review of the medical and therapy history. Activity Tolerance Activity Tolerance: Tolerates 20 - 30 min activity with multiple rests Therapy Precautions Orthotic Devices: Yes Lower Extremity: Prosthesis, AFO (Prior L-foot amputation.) Weight Bearing Status: WFL General Rehab Precautions: Fall risk Cognition Overall Cognitive Status: Within Functional Limits Arousal/Alertness: Appropriate responses to stimuli Orientation Level: Oriented X4 Executive functioning: WFL Safety Judgment: Decreased awareness of need for assistance, Decreased awareness of need for safety Problem Solving: Assistance required to identify errors made, Assistance required to generate solutions Attention: Attends to quiet environment Hearing Status: [facility] Social Interaction: Appropriate, Cooperative, Impulsive Comments: Pt able to follow 1-2 commands. Pt demonstrated ability to follow higher complex tasks, improving activity tolerance in recliner w/ sink-level ADLs. Pt required Mod VC's on safety precautions during sit to stand utilizing AE. ADL Grooming: Set-up, Stand by assist Upper Body Bathing: Set-up, Stand by assist Lower Body Bathing: Set-up Upper Body Dressing: Set-up, Minimal assist Toileting: Set-up, Maximal assist Functional Mobility: Contact guard assist, Minimal assist Bed Mobility Rolling: Supervision, Stand by assist Supine to Sit: Supervision, Stand by assist Sit to Supine: (Post-session Pt left in EOB position.) Careers Counsellor: bedrails Functional Transfers Sit to Stand: Minimal assist, Moderate assist, 2 person assist Careers Counsellor: wheeled walker Additional Functional Transfer Trial 2: Yes Sit to Stand Trial 2: Contact guard assist, Minimal assist Bed to Chair Trial 2: Contact guard assist, Minimal assist Careers Counsellor Trial 2: wheeled walker Home Living Obtained Home Living and PLOF info from: Patient Lives With: (Brother. Brother is available to help as needed.) Type of Home: House Home Layout: One level Steps to enter home: Yes Rails to enter home: None Number of stairs to enter home: 1 Bathroom Shower/Tub: Tub/shower unit Bathroom Toilet: Raised Bathroom Equipment: Shower chair Mobility Equipment: (Reports no using AD but does own crutches, rollator and wheeled walker.) Prior Level of Function Level of [place] - Transfers/Ambulation/Mobility: Independent with functional transfers Level of [place] - ADLs: Independent Level of [place] - Homemaking: Independent Driving: Patient drives Vocational: Retired Leisure: Pt reported, enjoys fishing. OCCUPATIONAL THERAPY TREATMENT NOTE Total Treatment Time (Total Session Time): 40 Minutes Total Timed Code Treatment Minutes: 25 Minutes Cognitive Skills Development Skilled Intervention Provided: verbal cues, facilitation, grading task, task breakdown/simplification, environmental setup/modification For: compensatory techniques, preparing for self-care tasks Resulting In: improved activity tolerance, increased insight into deficits, increased safety awareness Self-Care / ADL Grooming - Skilled Intervention Provided: verbal cues, environmental setup/modification, facilitation, monitored patient's safety and tolerance Grooming - For: compensatory strategies, efficient movement, task simplification/modification Grooming - Resulting In: improved activity tolerance, improved functional independence, improved performance with ADLs, improved safety, increased upright tolerance for functional tasks Upper Body Bathing - Skilled Intervention Provided: environmental setup/modification, facilitation, monitored patient's safety & tolerance Upper Body Bathing - For: compensatory strategies, efficient movement, safe bathing techniques, task simplification/modification, LE management, UE management Upper Body Bathing - Resulting In: improved activity tolerance, improved functional independence, improved performance with ADLs, improved safety, increased insight into deficits Lower Body Bathing - Skilled Intervention Provided: environmental setup/modification, facilitation, monitored patient's safety & tolerance Lower Body Bathing - For: LE management, compensatory strategies, efficient movement, safe bathing techniques, task simplification/modification Lower Body Bathing - Resulting In: improved activity tolerance, improved functional independence, improved performance with ADLs, improved safety, increased insight into deficits Upper Body Dressing - Skilled Intervention Provided: verbal cues, environmental setup/modification, facilitation, monitored patient's safety & tolerance Upper Body Dressing - For: UE management, compensatory strategies, self-monitoring, task simplification/modification, efficient movement Upper Body Dressing - Resulting In: improved activity tolerance, improved functional independence, improved performance with ADLs, improved safety, increased insight into deficits, increased upright tolerance for functional tasks Toileting - Skilled Intervention Provided: verbal cues, environmental setup/modification, facilitation, monitored patient's safety and tolerance Toileting - For: compensatory strategies, task simplification/modification Toileting - Resulting In: improved activity tolerance, improved safety, increased insight into deficits Functional Mobility - Skilled Intervention Provided: verbal cues, environmental setup/modification, facilitation, monitoring patient response with activity, provided step by step instructions Functional Mobility - For: compensatory strategies, efficient movement, fall prevention, safety during functional task(s), increased participation in mobility task Functional Mobility - Resulting In: improved activity tolerance, improved functional independence, increased initiation/participation in mobility task(s), improved safety, increased insight into deficits, increased upright tolerance for functional task(s), decreasing fall risk Therapeutic Activities Bed Mobility Skilled Intervention Provided: verbal cues, environmental setup/modification, facilitation, monitoring patient response with activity, monitoring patient response with positional changes For: LE management, UE management, compensatory strategies, safety during functional task(s), efficient movement Resulting In: improved activity tolerance, improved safety, increased initiation in mobility task(s), increased insight into deficits, increased upright tolerance for functional tasks Functional Transfers Skilled Intervention Provided: verbal cues, environmental setup/modification, facilitation, monitoring patient response with activity, provided step by step instructions For: LE management, UE management, compensatory strategies, efficient movement, fall prevention, increased participation in mobility task, safe use of AD and/or equipment, safety during functional task(s) Resulting In: improved activity tolerance, improved functional independence, increased initiation/participation in mobility task(s), improved safety, increased insight into deficits, increased upright tolerance for functional task(s), decreasing fall risk Additional Treatment Details Education provided on intiiating breaks/pace during functional tasks to improve activity tolerance. Pt demonstrated difficulty with self-awareness of safety when changing positions sit to stand. Pt required Mod VC's for redirection. Pt would benefit from continued education on utilizing AE. Past Medical History: Diagnosis Date Arthritis Avascular necrosis of bone of hip ([facility]) Claudication COPD (chronic obstructive pulmonary disease) ([facility]) Coronary artery disease Herpes zoster Hyperlipidemia Hypertension PAD (peripheral artery disease) ([facility]) 01/21/2022 Posterior tibial tendinitis of right leg 11/07/2022 Prostate cancer ([facility]) Vascular disease Past Surgical History: Procedure Laterality Date 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/08/2018 Procedure: LEFT MIDFOOT AMPUTATION; Surgeon: Flynn Mann DPM; Location: [facility]; Service: Podiatry ANKLE SURGERY Left BYPASS FEMOROTIBIAL REPAIR/GRAFT Right 03/17/2025 Procedure: RIGHT FEMORAL TO TIBIAL BYPASS WITH ARM VEIN. 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 This note stands as the current Discharge Summary upon patient discharge from the hospital or completion of Occupational Therapy Plan of Care. Cosigned by Francy Alcantara OT at 03/19/2025 4:38 PM EDT [facility] 03-19-2025 Note [facility] Inpatient Pro lucy Note 03/19/2025 Tristin Powell 1940 [id number] Assessment/Plan: Tristin Powell is a 85 y.o. male with a history of Peripheral Artery Disease s/p Bypass, Afib (Xarelto), Diastolic Heart Failure, Coronary Artery Disease s/p CABG, recent balloon angioplasty 03/12/2025,. presented to [facility] ED on 03/14/2025 from Vascular Surgery clinic with intractable right foot pain. Found to have critical right LE ischemia Critical right lower limb ischemia: History of PAD. Follows Dr. Beaver ([facility]) and Dr. Sarabia (Vascular Surgery) s/p left femoral to peroneal bypass using contralateral reverse greater saphenous vein and partial left foot amputation (09/07/2018 - Dr. Sarabia). S/p angiogram 03/12/25 (Dr. Beaver) with balloon of SFA. Arterial Duplex 03/14/25: 50-99% stenosis in the right mid superficial femoral artery. ABIs 03/14/25: With severe 1 small vessel disease of the right foot. Continued ASA, statin and heparin gtt. S/p Plavix. Resume home AC as able. S/p angiogram 03/17/25 with R SFA to peroneal bypass. Repeat ABIs pending, timing TBD. [facility] following. Acute on Chronic Pain Syndrome: with opiate dependence. Continued home Percocet with increased dose. IV Dilaudid added, wean as able. CAD: Followed by [facility] s/p 3 vessel coronary artery bypass grafting in 2017 and 7 stents. Meds as above Chronic Diastolic Heart Failure: TTE 04/2024: LVEF 55% grade 1 diastolic dysfunction, moderate aortic regurgitation, moderate mitral regurgitation, mild tricuspid regurgitation. Appeared euvolemic on admission. Continued home losartan and lasix every other day. Paroxysmal Afib: Held home Xarelto on admit. Continued Lopressor. S/p heparin gtt, resumed xarelto. Valvular disease: Mild to moderate aortic valve regurg and mild to moderate mitral valve regurg, mild tricuspid and pulmonic valve regurg. Shown on echo 05/13/2024. Outpatient surveillance advised. Aortic root dilatation: 4.1 cm on echo. Patient surveillance Lymphopenia: Baseline WBC normal. WBC of 3.5 (ANC 1.9k) on 03/14/2025. WBC 4.27 03/16/2025 Prolonged QTc: 502-03/15/2025. Previously stable. Repeat 464 CKD IIIa: Baseline SCr ~1.2, SCr 1.1 on 03/14/25. Monitored. Chronic Anemia: baseline Hgb ~11-13. Hgb of 13.2 (MCV 91) on 03/14/25. Asymptomatic bilateral carotid stenosis: No history of CVA. Shown on duplex 04/2024. AC/AP as above Insomnia: Continue zolpidem Prostate Cancer: s/p brachytherapy, reportedly in remission. COPD: no evidence of acute exacerbation on admit. Reduced Mobility: present prior to admission. PTOT. Class I Obesity: Body mass index is 32.1 kg/m . Recommended lifestyle changes. Code Status: Full - confirmed with patient and son on admit DVT Prophylaxis: xarelto Medication Reconciliation: Reviewed using patient interview, paint laboratory technician Current living situation: home Expected Disposition: PT/OT rec up to 5 pt requesting home with [facility], [facility] following. Estimated discharge date: ~03/20/2025 Medically Ready for Discharge: no Subjective: Pt seen at bedside vitals reviewed. No acute events overnight. Got up with therapy yesterday, rec for SNF. Vascular planning repeat ABIs. Dose reduced IV pain meds. Pt declining SNF, wants home going plan, will continue to work with therapy. On high risk medication requiring frequent monitoring: IV pain meds Labs personally reviewed: BMP WNL, WBC 4.3, Hgb 10.4, Plt 148 Physical Exam: BP 133/62 (BP Location: Right arm, Patient Position: Lying) Pulse 94 Temp 98.6 degrees F (37 degrees C) (Oral) Resp 17 Ht 6' 2 Wt 110.2 kg (242 lb 15.2 oz) SpO2 95% BMI 31.19 kg/m General: NAD Eyes: EOMI, sclera clear ENT: neck supple Cardiovascular: Regular rate, no murmur Respiratory: Clear to auscultation, symmetric air entry Gastrointestinal: Soft, non tender, non distended, positive bowel sounds Genitourinary: no CVA tenderness Musculoskeletal: no major joint deformity: RLE tired leg and comber tender to touch. Moving well with mild pain.: Decreased sensation in the foot. Warm. Left midfoot amputation Skin: warm, dry, no LE edema Neuro: Alert, oriented x3, no focal motor deficits Psych: Mood appropriate Current Medications: acetaminophen 650 mg Oral Q4H While awake aspirin 81 mg Oral Daily atorvastatin 80 mg Oral Nightly azelastine 1 spray Each Nare Daily cyclobenzaprine 10 mg Oral Q8H SADIA furosemide 20 mg Oral Every Other Day losartan 50 mg Oral Daily with lunch metoprolol tartrate 50 mg Oral BID pantoprazole 40 mg Oral Daily polyethylene glycol 17 g Oral Daily rivaroxaban 2.5 mg Oral BID tamsulosin 0.4 mg Oral After evening meal zolpidem 10 mg Oral Nightly Labs, Imaging and Studies reviewed: Results from last 7 days Lab Units 03/19/25 0455 03/18/25 0401 03/17/25 2309 03/17/25 0353 WBC K/mcL 4.34* 5 (more content not included)... [facility] 03-19-2025 Note VASCULAR SURGERY PRO LUCY NOTE Patient Name: Tristin Powell Reason for Consult: RLE rest pain ASSESSMENT AND PLAN Tristin Powell is a 85 y.o. male with history of arotic stenosis, HTN, dyslipidemia, HFpEF, ascending/thoracic aortic aneurysm (4.[address] dated 04/2024), CAD (NSTEMI; s/p 3v CABG), paroxysmal a.fib, aortic & mitral valve disease, COPD, CKD stage 3, PAD, s/p left fem to peroneal bypass (2019, [facility]), left TMA who presented to [facility] on 03/14/2025 with worsening RLE pain and discoloration. Arterial Duplex (03/14/25): 50-99% stenosis in the right mid SFA YAMILE's (03/14/25): Right YAMILE is 0.50. Left YAMILE is 0.55. CTLI IV Aortic Stenosis -Admitted to medicine -s/p RLE distal SFA to peroneal bypass w/ reversed LUE cephalic vein, completion angio w/ diminutive runoff via peroneal (03/17, [facility]) -Regular diet -Continue to encourage UOOB, AAT, IS -Continue ASA 81 -Will discuss timing for repeat ABIs -Will discuss with Dr. Sarabia TREV COLEMAN MD General Surgery Resident, PGY-1 [facility] Please contact surgical editorial intern distribution designer 5PM-6AM and weekends - #[phone] VTS Pager - #[phone] Subjective NAEO. Was able to get up and moving yesterday, no other concerns. PHYSICAL EXAM VITALS BP 133/62 (BP Location: Right arm, Patient Position: Lying) Pulse 94 Temp 98.6 degrees F (37 degrees C) (Oral) Resp 17 Ht 6' 2 Wt 110.2 kg (242 lb 15.2 oz) SpO2 95% BMI 31.19 kg/m PHYSICAL EXAM General: Awake and alert, no acute distress Head: Normocephalic, atraumatic Eyes: No scleral icterus, EOM grossly intact Neck: Trachea midline Cardiovascular: Hemodynamically stable, regular rate Pulmonary: Nonlabored breathing, equal chest rise Extremities: No obvious deformities. Doppler signal present in PT and peroneal of LLE. Motor and sensory intact Skin: Dry and intact, no obvious rash Neurological: LUU, no gross focal deficits GI: Abd soft, nondistended. IMAGING/LABS Interval imaging and laboratory results reviewed AUTHENTICATED BY TREV COLEMAN, ON 03/19/2025 07:06:48 [facility] 03-18-2025 Note [facility] Inpatient Pro lucy Note 03/18/2025 Tristin Powell 1940 [id number] Assessment/Plan: Tristin Powell is a 85 y.o. male with a history of Peripheral Artery Disease s/p Bypass, Afib (Xarelto), Diastolic Heart Failure, Coronary Artery Disease s/p CABG, recent balloon angioplasty 03/12/2025,. presented to [facility] ED on 03/14/2025 from Vascular Surgery clinic with intractable right foot pain. Found to have critical right LE ischemia Critical right lower limb ischemia: History of PAD. Follows Dr. Beaver ([facility]) and Dr. Sarabia (Vascular Surgery) s/p left femoral to peroneal bypass using contralateral reverse greater saphenous vein and partial left foot amputation (09/07/2018 - Dr. Sarabia). S/p angiogram 03/12/25 (Dr. Beaver) with balloon of SFA. Arterial Duplex 03/14/25: 50-99% stenosis in the right mid superficial femoral artery. ABIs 03/14/25: With severe 1 small vessel disease of the right foot. Continued ASA, statin and heparin gtt. S/p Plavix. Resume home AC as able. S/p angiogram 03/17/25 with R SFA to peroneal bypass. Peripheral Vascular Cardiology and Vascular Surgery following. Acute on Chronic Pain Syndrome: with opiate dependence. Continued home Percocet with increased dose. IV Dilaudid added. CAD: Followed by [facility] s/p 3 vessel coronary artery bypass grafting in 2017 and 7 stents. Meds as above Chronic Diastolic Heart Failure: TTE 04/2024: LVEF 55% grade 1 diastolic dysfunction, moderate aortic regurgitation, moderate mitral regurgitation, mild tricuspid regurgitation. Appeared euvolemic on admission. Continued home losartan and lasix every other day. Paroxysmal Afib: Held home Xarelto. Continued Lopressor. Initiated heparin gtt Valvular disease: Mild to moderate aortic valve regurg and mild to moderate mitral valve regurg, mild tricuspid and pulmonic valve regurg. Shown on echo 05/13/2024. Outpatient surveillance advised. Aortic root dilatation: 4.1 cm on echo. Patient surveillance Lymphopenia: Baseline WBC normal. WBC of 3.5 (ANC 1.9k) on 03/14/2025. WBC 4.27 03/16/2025 Prolonged QTc: 502-03/15/2025. Previously stable. Repeat 464 CKD IIIa: Baseline SCr ~1.2, SCr 1.1 on 03/14/25. Monitored. Chronic Anemia: baseline Hgb ~11-13. Hgb of 13.2 (MCV 91) on 03/14/25. Asymptomatic bilateral carotid stenosis: No history of CVA. Shown on duplex 04/2024. AC/AP as above Insomnia: Continue zolpidem Prostate Cancer: s/p brachytherapy, reportedly in remission. COPD: no evidence of acute exacerbation on admit. Reduced Mobility: present prior to admission. PTOT. Class I Obesity: Body mass index is 32.1 kg/m . Recommended lifestyle changes. 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 Estimated discharge date: ~03/20/2025 Medically Ready for Discharge: no Subjective: Pt seen at bedside new to me. Vitals reviewed. No acute events overnight. S/p revascularization yesterday. Doing well since procedure. Pain controlled. Denies new sensation changes. Planned to work with PT/OT today. Likely need for placement. On high risk medication requiring frequent monitoring: IV pain meds Physical Exam: BP (!) 147/57 Pulse 84 Temp 99.7 degrees F (37.6 degrees C) (Oral) Resp 15 Ht 6' 2 Wt 110.2 kg (242 lb 15.2 oz) SpO2 93% BMI 31.19 kg/m General: NAD Eyes: EOMI, sclera clear ENT: neck supple Cardiovascular: Regular rate, no murmur Respiratory: Clear to auscultation, symmetric air entry Gastrointestinal: Soft, non tender, non distended, positive bowel sounds Genitourinary: no CVA tenderness Musculoskeletal: no major joint deformity: RLE tired leg and comber tender to touch. Moving well with mild pain.: Decreased sensation in the foot. Warm. Left midfoot amputation Skin: warm, dry, no LE edema Neuro: Alert, oriented x3, no focal motor deficits Psych: Mood appropriate Current Medications: acetaminophen 650 mg Oral Q4H While awake aspirin 81 mg Oral Daily atorvastatin 80 mg Oral Nightly azelastine 1 spray Each Nare Daily cyclobenzaprine 10 mg Oral Q8H SADIA furosemide 20 mg Oral Every Other Day losartan 50 mg Oral Daily with lunch metoprolol tartrate 50 mg Oral BID pantoprazole 40 mg Oral Daily polyethylene glycol 17 g Oral Daily tamsulosin 0.4 mg Oral After evening meal zolpidem 10 mg Oral Nightly Labs, Imaging and Studies reviewed: Results from last 7 days Lab Units 03/18/25 0401 03/17/25 2309 03/17/25 0353 03/16/25 0328 WBC K/mcL 5.05 -- 3.29* 4.27* HGB g/dL 10.5* 11.2* 11.0* 12.0* HCT % 28.9* 30.5* 33.1* 36.7* PLT K/mcL 157 -- 153 159 Results from last 7 days Lab Units 03/18/25 04 (more content not included)... [facility] 03-18-2025 Note VASCULAR SURGERY PRO LUCY NOTE Patient Name: Tristin Powell Reason for Consult: RLE rest pain ASSESSMENT AND PLAN Tristin Powell is a 85 y.o. male with history of arotic stenosis, HTN, dyslipidemia, HFpEF, ascending/thoracic aortic aneurysm (4.[address] dated 04/2024), CAD (NSTEMI; s/p 3v CABG), paroxysmal a.fib, aortic & mitral valve disease, COPD, CKD stage 3, PAD, s/p left fem to peroneal bypass (2019, [facility]), left TMA who presented to [facility] on 03/14/2025 with worsening RLE pain and discoloration. Arterial Duplex (03/14/25): 50-99% stenosis in the right mid SFA YAMILE's (03/14/25): Right YAMILE is 0.50. Left YAMILE is 0.55. CTLI IV Aortic Stenosis -Admitted to medicine -s/p RLE distal SFA to peroneal bypass w/ reversed LUE cephalic vein, completion angio w/ diminutive runoff via peroneal (03/17, [facility]) -Diet as tolerated -Discontinue qureshi yoly -UOOB, AAT, IS -Continue ASA 81 -Will discuss with Dr. Sarabia TREV COLEMAN MD General Surgery Resident, PGY-2 [facility] Please contact surgical editorial intern distribution designer 5PM-6AM and weekends - #[phone] VTS Pager - #[phone] Subjective NAEO. Feels good this morning. Wants to try to walk. PHYSICAL EXAM VITALS BP (!) 147/57 Pulse 78 Temp 99.7 degrees F (37.6 degrees C) (Oral) Resp (!) 20 Ht 6' 2 Wt 110.2 kg (242 lb 15.2 oz) SpO2 93% BMI 31.19 kg/m PHYSICAL EXAM General: Awake and alert, no acute distress Head: Normocephalic, atraumatic Eyes: No scleral icterus, EOM grossly intact Neck: Trachea midline Cardiovascular: Hemodynamically stable, regular rate Pulmonary: Nonlabored breathing, equal chest rise Extremities: No obvious deformities. Doppler signal present in PT and peroneal of LLE. Motor and sensory intact Skin: Dry and intact, no obvious rash Neurological: LUU, no gross focal deficits GI: Abd soft, nondistended. IMAGING/LABS Interval imaging and laboratory results reviewed AUTHENTICATED BY TREV COLEMAN, ON 03/18/2025 06:35:17 [facility] 03-18-2025 History of Present illness Narrative Pt seen by PV cardiology while at [facility]. Per Catina Calixto CNP, no PV cardiology follow up needed, pt to f/u with vascular surgery. documented in this encounter [facility] 03-18-2025 Plan of care note Problem: Actual or potential alteration in health Goal: Absence of healthcare acquired conditions Outcome: Partially Met Goal: Knowledge of Interdisciplinary Plan of Care Outcome: Partially Met Goal: Knowledge of Enviroment Outcome: Partially Met Problem: Pain Goal: Reduced pain sensation Outcome: Partially Met Goal: Control of acute pain to acceptable level Outcome: Partially Met Goal: Able to cope with pain Outcome: Partially Met Goal: Able to achieve maximum level of physical functioning Outcome: Partially Met Goal: Able to achieve maximum level of psychosocial functioning Outcome: Partially Met Problem: Falls, Risk of Goal: Absence of falls Outcome: Partially Met Goal: Absence of physical injury Outcome: Partially Met Problem: Pressure Injury, Risk of Goal: Absence of pressure injury Outcome: Partially Met [facility] 03-17-2025 Note VASCULAR SURGERY PRO LUCY NOTE [id number] ASSESSMENT AND PLAN Tristin Powell is a 85 y.o. male with history of arotic stenosis, HTN, dyslipidemia, HFpEF, ascending/thoracic aortic aneurysm (4.[address] dated 04/2024), CAD (NSTEMI; s/p 3v CABG), paroxysmal a.fib, aortic & mitral valve disease, COPD, CKD stage 3, PAD, s/p left fem to peroneal bypass (2019, [facility]), left TMA who presented to [facility] on 03/14/2025 with worsening RLE pain and discoloration. Now s/p Right SFA to the peroneal bypass using left reverse cephalic vein on 03/[address] Sarabia. CTLI IV Aortic Stenosis - s/p RLE distal SFA to peroneal bypass w/ reversed LUE cephalic vein, completion angio w/ diminutive runoff via peroneal - Diet: Clear liquids, advance as tolerated -As needed pain and nausea control -Rooke boot to RLE -Bedrest tonight -Maintain qureshi overnight -Continue to elevate LUE Abi Walker MD General Surgery Please contact surgical editorial intern distribution designer 5PM-6AM and weekends VTS Pager - #[phone] SUBJECTIVE Patient is resting in bed with LUE elevated. Reports some pain at his right hip. Denies Numbness or tingling in his lower extremity. Denies nausea or vomiting currently. PHYSICAL EXAM VITALS BP (!) 165/63 (BP Location: Right arm, Patient Position: Lying) Pulse 88 Temp 99.9 degrees F (37.7 degrees C) (Oral) Resp 18 Ht 6' 2 Wt 110.2 kg (242 lb 15.2 oz) SpO2 96% BMI 31.19 kg/m PHYSICAL EXAM General: Awake and alert, no acute distress Head: Normocephalic, atraumatic Eyes: No scleral icterus, EOM grossly intact Neck: Trachea midline, soft Cardiovascular: Hemodynamically stable, regular rate, RLE DP and peroneal pulses are dopplerable Pulmonary: Nonlabored breathing, equal chest rise Extremities: No obvious deformities, warm and well perfused Skin: Dry and intact, no obvious rash Neurological: LUU, no gross focal deficits GI: Abd soft, no abdominal TTP, non-distended, no peritoneal signs Wound: Incisions C/D/I, RLE and LUE coverlets clean and dry IMAGING/LABS Recent diagnostic imaging/reports reviewed. Pertinent findings may be listed below. Please correlate with formal radiology reads. AUTHENTICATED BY ABI WALKER ON 03/18/2025 03:54:39 [facility] 03-17-2025 Procedure note Brief Post Operative Note Patient Name: Tristin Powell : 1940 (85 y.o.) Date of Service: 03/17/2025 CSN: [id number] Procedure(s): RIGHT FEMORAL TO TIBIAL BYPASS WITH ARM VEIN. Angiogram Pre-Operative Diagnoses: * PERIPHERAL ARTERY DISEASE Post-Operative Diagnoses: same Surgeons and Role: * Mohsen Sarabia MD - Primary * Karina Orozco MD - Resident - Assisting Anesthesiologist: Serjio Olivarez MD; Muna Gil MD SPRINKLER DRIVER: Viviana Dhillon CRNA Stranding Supervisor: Lori Diaz RN Medical Radiation Tech: Jose C Ambrose TECHNOLOGIST Stranding Supervisor Relief: Millicent Cedeño RN; Arlene Watson RN Scrub Person Relief: Izabel Bosch RN Stranding Supervisor Orientee: Kaylie Jason RN Stranding Supervisor Preceptor: Izabel Bosch RN Scrub Person Preceptor: Lorraine Zhao ST Scrub Person Orientee: Juan Edmonds RN Operative findings: RLE distal SFA to peroneal bypass w/ reversed LUE cephalic vein, completion angio w/ diminutive runoff via peroneal Intra and immediate post-operative complications: none Type of anesthesia used: General Estimated blood loss: 50 mL Estimated urine output: Specimen(s): * No specimens in log * Implant(s): Implant Name Type Inv. Item Serial No. Sewer Connector Lot No. LRB No. Used Action HEMOSTAT 2 X 4IN SURGICEL FIBRILLAR - SNA HEMOSTAT 2 X 4IN SURGICEL FIBRILLAR NA ETHICON [id number] Right 1 Implanted SEALANT 10ML HEMOSTATIC MATRIX FAST PREP FLOSEAL W/RECOTHROM - [id number] SEALANT 10ML HEMOSTATIC MATRIX FAST PREP FLOSEAL W/RECOTHROM Collisionable [id number] Right 1 Implanted Drain(s): Urethral Catheter Non-latex;Straight-tip 16 Fr. (Active) Wound(s): Wound 11/04/22 Chronic Ankle;BKA;Other: Anterior;Left (Active) Wound 03/14/25 Acute Sacral Left (Active) Reassessment Unchd 03/16/25 181 Dressing Status Open to air 03/16/252000 Drainage Amount None 03/14/25 2100 Drainage Description None 03/14/25 2100 Odor None 03/14/25 2100 Primary Dressing Bordered Foam (e.g. mepilex) 03/16/25 0840 Wound 03/17/25 1 Incision Upper Arm Anterior;Left (Active) Wound Closure Sutures 03/14/25 0007 Wound 03/17/25 2 Incision Pre-tibial Proximal;Right (Active) Wound Closure Sutures 03/14/25 0007 Wound 03/17/25 1 Incision Upper Leg Distal;Right;Medial (Active) Wound Closure Approximated;Sutures 03/14/25 0007 [REMOVED] Wound 11/04/22 Buttock Left (Removed) Dressing Status Applied 03/14/25 2100 Drainage Amount None 03/14/25 2100 Drainage Description None 03/14/25 2100 Primary Dressing Bordered Foam (e.g. mepilex) 03/14/25 2100 Did the case consist of ANY colon or uterine surgery? NO Karina Orozco MD 03/17/2025 4:30 PM [facility] Work Phone: 03-17-2025 Attending History and physical note INTERVAL HISTORY AND PHYSICAL Patient Name: Tristin Powell Admit Date: [id number] MR #: [id number] : 1940 The H&P has been reviewed and the patient has been examined. I concur with the findings of the H&P. There are no significant changes. It is appropriate to proceed with the planned procedure. Mohsen Sarabia MD 03/17/2025 11:36 AM Source Note - Beena Barraza MD - 03/14/2025 11:56 AM EDT VASCULAR SURGERY CONSULT Patient Name: Tristin Powell Reason for Consult: RLE rest pain ASSESSMENT AND PLAN Tristin Powell is a 85 y.o. male with history of arotic stenosis, HTN, dyslipidemia, HFpEF, ascending/thoracic aortic aneurysm (4.[address] dated 04/2024), CAD (NSTEMI; s/p 3v CABG), paroxysmal a.fib, aortic & mitral valve disease, COPD, CKD stage 3, PAD, s/p left fem to peroneal bypass (2018, [facility]), left TMA who presented to [facility] on 03/14/2025 with worsening RLE pain and discoloration. Arterial Duplex (03/14/25): 50-99% stenosis in the right mid SFA YAMILE's (03/14/25): Right YAMILE is 0.50. Left YAMILE is 0.55. CTLI IV Aortic Stenosis -Patient w/ notable history of PAD s/p left fem to peroneal bypass (2018, [facility]) p/w RLE rest pain x 3 days. Work up concerning for SFA stenosis, for which vascular surgery was consulted for. -Patient examined: HDS, AURELIANO, doppler signal present in R PT, foot warm, erythematous and swollen. -Imaging reviewed: As above. Rest of workup still pending. -Labs reviewed: WBC 3.5, Hgb 13.2 -Assessment: Patient's rest pain is likely due to underlying subacute worsening of his underlying PAD. Agree with medical admission, pain control and peripheral cardiology evaluation Plan -Admit to medicine -AC/AP per peripheral cardiology -No urgent surgical intervention indicated at this time -F/u PV cardiology c/s for angio -Vascular surgery will be available as needed -Further plans pending above work up -Discussed with Dr. Sarabia Beena Barraza MD General Surgery Resident, PGY-2 [facility] Please contact surgical editorial intern distribution designer 5PM-6AM and weekends - #[phone] VTS Pager - #[phone] Admitted with these risk variables:None. Please see assessment and plan for further details. HISTORY OF PRESENT ILLNESS Over last three weeks developed some numbness and burning in his right foot, which acutely worsened 5 days ago. It has since been constant, but very severe. Pain located in R foot and ankle. Patient also complains of redness from ankle down and blue/purple color changes in toes. Last dose of aspirin was 03/13/25 AM. Last dose of Xarelto was 03/13/25 AM, he was told to stop due to procedure and stopped afterward due to severe pain. Review of systems otherwise negative unless stated above. PAST MEDICAL, SURGICAL, FAMILY, SOCIAL HISTORY Past Medical History: Diagnosis Date Arthritis Avascular necrosis of bone of hip ([facility]) Claudication COPD (chronic obstructive pulmonary disease) ([facility]) Coronary artery disease Herpes zoster Hyperlipidemia Hypertension PAD (peripheral artery disease) ([facility]) 01/21/2022 Posterior tibial tendinitis of right leg 11/07/2022 Prostate cancer ([facility]) Vascular disease Past Surgical History: Procedure Laterality Date 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/08/2018 Procedure: LEFT MIDFOOT AMPUTATION; Surgeon: Flynn Mann DPM; Location: [facility]; Service: Podiatry ANKLE SURGERY Left BYPASS PERONEAL FEMORAL Right 09/07/2018 Procedure: BYPASS PERONEAL FEMORAL, RIGHT SAPHENOUS VEIN HARVEST, COMPLETION ANGIOGRAM; Surgeon: Mohsen Sarabia MD; Location: [facility] NEURO OR; Service: Cardiovascular CARDIAC CATHETERIZATION Left 09/05/2018 Procedure: Angio Lower Extremity; Surgeon: Ben Hahn MD; 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; Service: Cardiovascular CARDIAC SURGERY 2017 triple bypass EGD N/A 10/10/2018 Procedure: ESOPHAGOGASTRODUODENOSCOPY; Surgeon: Ben Jensen MD; Location: [facility]; Service: Gastroenterology EYE SURGERY Right 2015 FOOT SURGERY ORTHOPEDIC SURGERY STENT PLACEMENT Family History Problem Relation Age of Onset No Known Problems Mother Heart disease Father Prostate cancer Brother Cancer Paternal Aunt Social History [1] PHYSICAL EXAM VITALS BP (!) 159/69 (BP Location: Right arm, Patient Position: Sitting) Pulse 78 Temp 97.8 F (36.6 C) (Oral) Resp 18 Ht 6' 2 Wt 113.4 kg (250 lb) SpO2 94% BMI 32.10 kg/m PHYSICAL EXAM General: Awake and alert, no acute distress Head: Normocephalic, atraumatic Eyes: No scleral icterus, EOM grossly intact Neck: Trachea midline Cardiovascular: Hemodynamically stable, regular rate Pulmonary: Nonlabored breathing, equal chest rise Extremities: LLE with evidence of TMA. RLE foot and distal ankle appear red and swollen. Doppler signal present in PT of LLE. No gangrene. Motor and sensory intact Skin: Dry and intact, no obvious rash Neurological: LUU, no gross focal deficits GI: Abd soft, nondistended. IMAGING/LABS Interval imaging and laboratory results reviewed [1] Social History Socioeconomic History Marital status: Tobacco Use Smoking status: Never Smokeless tobacco: Never Vaping Use Vaping status: Never Used Substance and Sexual Activity Alcohol use: Not Currently Drug use: Never Sexual activity: Not Currently Social Drivers of Health Financial Resource Strain: Low Risk (06/21/2024) Received from [facility] Overall Financial Resource Strain (CARDIA) Difficulty of Paying Living Expenses: Not hard at all Food Insecurity: No Food Insecurity (06/21/2024) Received from [facility] Hunger Vital Sign Worried About Running Out of Food in the Last Year: Never true Ran Out of Food in the Last Year: Never true Transportation Needs: No Transportation Needs (06/21/2024) Received from [facility] PRAPARE - Transportation Lack of Transportation (Medical): No Lack of Transportation (Non-Medical): No Physical Activity: Insufficiently Active (06/21/2024) Received from [facility] Exercise Vital Sign Days of Exercise per Week: 7 days Minutes of Exercise per Session: 10 min Stress: No Stress Concern Present (06/21/2024) Received from [facility] Citizen Of [place] of Occupational Health - Occupational Stress Questionnaire Feeling of Stress : Not at all Housing Stability: Low Risk (06/21/2024) Received from [facility] Housing Stability Vital Sign Unable to Pay for Housing in the Last Year: No Number of Times Moved in the Last Year: 0 Homeless in the Last Year: No Cosigned by Mohsen Sarabia MD at 03/16/2025 10:33 AM EDT [facility] Work Phone: 03-17-2025 History and physical note INTERVAL HISTORY AND PHYSICAL Patient Name: Tristin Powell Admit Date: [id number] MR #: [id number] : 1940 The H&P has been reviewed and the patient has been examined. I concur with the findings of the H&P. There are no significant changes. It is appropriate to proceed with the planned procedure. Mohsen Sarabia MD 03/17/2025 11:36 AM Source Note - Beena Barraza MD - 03/14/2025 11:56 AM EDT VASCULAR SURGERY CONSULT Patient Name: Tristin Powell Reason for Consult: RLE rest pain ASSESSMENT AND PLAN Tristin Powell is a 85 y.o. male with history of arotic stenosis, HTN, dyslipidemia, HFpEF, ascending/thoracic aortic aneurysm (4.[address] dated 04/2024), CAD (NSTEMI; s/p 3v CABG), paroxysmal a.fib, aortic & mitral valve disease, COPD, CKD stage 3, PAD, s/p left fem to peroneal bypass (2019, [facility]), left TMA who presented to [facility] on 03/14/2025 with worsening RLE pain and discoloration. Arterial Duplex (03/14/25): 50-99% stenosis in the right mid SFA YAMILE's (03/14/25): Right YAMILE is 0.50. Left YAMILE is 0.55. CTLI IV Aortic Stenosis -Patient w/ notable history of PAD s/p left fem to peroneal bypass (2019, [facility]) p/w RLE rest pain x 3 days. Work up concerning for SFA stenosis, for which vascular surgery was consulted for. -Patient examined: HDS, AURELIANO, doppler signal present in R PT, foot warm, erythematous and swollen. -Imaging reviewed: As above. Rest of workup still pending. -Labs reviewed: WBC 3.5, Hgb 13.2 -Assessment: Patient's rest pain is likely due to underlying subacute worsening of his underlying PAD. Agree with medical admission, pain control and peripheral cardiology evaluation Plan -Admit to medicine -AC/AP per peripheral cardiology -No urgent surgical intervention indicated at this time -F/u PV cardiology c/s for angio -Vascular surgery will be available as needed -Further plans pending above work up -Discussed with Dr. Sarabia Beena Barraza MD General Surgery Resident, PGY-2 [facility] Please contact surgical editorial intern distribution designer 5PM-6AM and weekends - #[phone] VTS Pager - #[phone] Admitted with these risk variables:None. Please see assessment and plan for further details. HISTORY OF PRESENT ILLNESS Over last three weeks developed some numbness and burning in his right foot, which acutely worsened 5 days ago. It has since been constant, but very severe. Pain located in R foot and ankle. Patient also complains of redness from ankle down and blue/purple color changes in toes. Last dose of aspirin was 03/13/25 AM. Last dose of Xarelto was 03/13/25 AM, he was told to stop due to procedure and stopped afterward due to severe pain. Review of systems otherwise negative unless stated above. PAST MEDICAL, SURGICAL, FAMILY, SOCIAL HISTORY Past Medical History: Diagnosis Date Arthritis Avascular necrosis of bone of hip (HCC) Claudication COPD (chronic obstructive pulmonary disease) (HCC) Coronary artery disease Herpes zoster Hyperlipidemia Hypertension PAD (peripheral artery disease) ([facility]) 01/21/2022 Posterior tibial tendinitis of right leg 11/07/2022 Prostate cancer ([facility]) Vascular disease Past Surgical History: Procedure Laterality Date 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/08/2018 Procedure: LEFT MIDFOOT AMPUTATION; Surgeon: Flynn Mann DPM; Location: [facility]; Service: Podiatry ANKLE SURGERY Left BYPASS PERONEAL FEMORAL Right 09/07/2018 Procedure: BYPASS PERONEAL FEMORAL, RIGHT SAPHENOUS VEIN HARVEST, COMPLETION ANGIOGRAM; Surgeon: Mohsen Sarabia MD; Location: [facility]; Service: Cardiovascular CARDIAC CATHETERIZATION Left 09/05/2018 Procedure: Angio Lower Extremity; Surgeon: Ben Hahn MD; 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; Service: Cardiovascular CARDIAC SURGERY 2017 triple bypass EGD N/A 10/10/2018 Procedure: ESOPHAGOGASTRODUODENOSCOPY; Surgeon: Ben Jensen MD; Location: [facility]; Service: Gastroenterology EYE SURGERY Right 2015 FOOT SURGERY ORTHOPEDIC SURGERY STENT PLACEMENT Family History Problem Relation Age of Onset No Known Problems Mother Heart disease Father Prostate cancer Brother Cancer Paternal Aunt Social History [1] PHYSICAL EXAM VITALS BP (!) 159/69 (BP Location: Right arm, Patient Position: Sitting) Pulse 78 Temp 97.8 F (36.6 C) (Oral) Resp 18 Ht 6' 2 Wt 113.4 kg (250 lb) SpO2 94% BMI 32.10 kg/m PHYSICAL EXAM General: Awake and alert, no acute distress Head: Normocephalic, atraumatic Eyes: No scleral icterus, EOM grossly intact Neck: Trachea midline Cardiovascular: Hemodynamically stable, regular rate Pulmonary: Nonlabored breathing, equal chest rise Extremities: LLE with evidence of TMA. RLE foot and distal ankle appear red and swollen. Doppler signal present in PT of LLE. No gangrene. Motor and sensory intact Skin: Dry and intact, no obvious rash Neurological: LUU, no gross focal deficits GI: Abd soft, nondistended. IMAGING/LABS Interval imaging and laboratory results reviewed [1] Social History Socioeconomic History Marital status: Tobacco Use Smoking status: Never Smokeless tobacco: Never Vaping Use Vaping status: Never Used Substance and Sexual Activity Alcohol use: Not Currently Drug use: Never Sexual activity: Not Currently Social Drivers of Health Financial Resource Strain: Low Risk (06/21/2024) Received from [facility] Overall Financial Resource Strain (CARDIA) Difficulty of Paying Living Expenses: Not hard at all Food Insecurity: No Food Insecurity (06/21/2024) Received from [facility] Hunger Vital Sign Worried About Running Out of Food in the Last Year: Never true Ran Out of Food in the Last Year: Never true Transportation Needs: No Transportation Needs (06/21/2024) Received from [facility] PRAPARE - Transportation Lack of Transportation (Medical): No Lack of Transportation (Non-Medical): No Physical Activity: Insufficiently Active (06/21/2024) Received from [facility] Exercise Vital Sign Days of Exercise per Week: 7 days Minutes of Exercise per Session: 10 min Stress: No Stress Concern Present (06/21/2024) Received from [facility] Citizen [place] of Occupational Health - Occupational Stress Questionnaire Feeling of Stress : Not at all Housing Stability: Low Risk (06/21/2024) Received from [facility] Housing Stability Vital Sign Unable to Pay for Housing in the Last Year: No Number of Times Moved in the Last Year: 0 Homeless in the Last Year: No Cosigned by Mohsen Sarabia MD at 03/16/2025 10:33 AM EDT [facility] History and Physical Note 03/14/25 Tristin Powell 1940 [id number] Assessment/Plan: Tristin Powell is a 85 y.o. male with a history of Peripheral Artery Disease s/p Bypass, Afib (Xarelto), Diastolic Heart Failure, Coronary Artery Disease s/p CABG, Hypertension, CKD III, COPD, Prostate Cancer, and Insomnia. Patient had outpatient angiogram 03/12/25 with balloon angioplasty. He presented to [facility] ED on 03/14/2025 from Vascular Surgery clinic with intractable right foot pain. In ED: right YAMILE 0.5; 50-99% stenosis in right mid superficial femoral artery; WBC 3.5. Course prolonged due to need for angiogram and Xarelto washout. Peripheral Artery Disease: Followed by Dr. Beaver ([facility]) and Dr. Sarabia (Vascular Surgery) s/p left femoral to peroneal bypass using contralateral reverse greater saphenous vein and partial left foot amputation (09/07/2018 - Dr. Sarabia). S/p angiogram 03/12/25 (Dr. Beaver) with balloon of SFA. Arterial Duplex 03/14/25: 50-99% stenosis in the right mid superficial femoral artery. ABIs 03/14/25: right YAMILE 0.50; left YAMILE is 0.55; severe small vessel disease in right foot. Continued home aspirin and statin. Held home Xarelto for procedure. Started Plavix. Angiogram planned 03/17/25. Peripheral Vascular Cardiology and Vascular Surgery following. Acute on Chronic Pain Syndrome: with opiate dependence. Reviewed NARx: filled Percocet 5-325mg (#120, 30d supply) last on 02/13/25; continued with additional for acute pain. CAD: Followed by [facility] s/p 3 vessel coronary artery bypass grafting in 2017 and 7 stents. Chronic Diastolic Heart Failure: TTE 04/2024: LVEF 55% grade 1 diastolic dysfunction, moderate aortic regurgitation, moderate mitral regurgitation, mild tricuspid regurgitation. Appeared euvolemic on admission. Continued home losartan and lasix every other day. Paroxysmal Afib: [id number] of 5. Xarelto as above (no indication for edna-procedural bridging with heparin drip). Continued home lopressor. Lymphopenia: Baseline WBC normal. WBC of 3.5 (ANC 1.9k) on 03/14/2025. Coagulopathy: Baseline PT normal. PT 14.6, INR 1.1 on 03/14/2025. CKD IIIa: Baseline SCr ~1.2, SCr 1.1 on 03/14/25. Monitored. Chronic Anemia: baseline Hgb ~11-13. Hgb of 13.2 (MCV 91) on 03/14/25. Insomnia: reviewed NARx report, consistent fills of zolpidem 10mg (#30, 30d supply) with last fill 02/13/25. Continued. Prostate Cancer: s/p brachytherapy, reportedly in remission. COPD: no evidence of acute exacerbation on admit. Reduced Mobility: present prior to admission. PTOT. Class I Obesity: Body mass index is 32.1 kg/m . Recommended lifestyle changes. Code Status: Full - confirmed with patient and son on admit DVT Prophylaxis: Mingo score of 6, lovenox. 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 Estimated discharge date: 03/18/2025 Medically Ready for Discharge: no - needs revascularization plan *Alonzo (son) updated at bedside 03/14/2025 Admitted with these risk variables:Valve Disease, CHF, Coagulation Defect, Chronic Kidney Disease, and Chronic Fatigue/Reduced Mobility . Please see assessment and plan for further details. Chief Complaint: Right-sided foot pain History of Present Illness: For the last year, patient slowing down a little more. Usually does pretty active stuff, able to go out [employer] hunting. In last 1-2 months getting more slow and trouble doing stuff. Had angiogram 03/12/25 but they ran into a bunch of blockages and were unable to intervene. Over last three weeks developed some numbness and burning in his right foot. Pain got severe in last 4-5 days. Pain has plateau now, so bad to the point of tears it's so painful. Pain goes from 4-5 cm above ankle down into right foot. Feels like a softball in the bottom of his foot. Some redness from ankle down. Some blueness to toes. It was purple for last week. Patient's son reports this is very similar to when he last had left foot problems and amputation. Last dose of aspirin was 03/13/25 AM. Last dose of Xarelto was 03/13/25 AM, he was told to stop due to procedure and stopped afterward due to severe pain. He denies chest pressure, abdominal pain, diarrhea/constipation. He had some nausea from pain medication. He has some normal shortness of breath, stable. No fevers/chills. No headache or vision changes. I personally reviewed the following labs: Chem, CBC, LA. Of note, patient is on IV dilaudid which is a high-risk medication and requires careful monitoring and titration. I personally discussed with Juana (Peripheral Vascular Cardiology CABINET INSTALLER) and Dr. Barraza (Vascular Surgery) - likely angiogram on Monday; no surgical intervention. ROS: 10 systems were reviewed and negative, except as noted above. Past Medical, Surgical, Social, Family History: Past Medical History: Diagnosis Date Arthritis Avascular necrosis of bone of hip ([facility]) Claudication COPD (chronic obstructive pulmonary disease) ([facility]) Coronary artery disease Herpes zoster Hyperlipidemia Hypertension PAD (peripheral artery disease) ([facility]) 01/21/2022 Posterior tibial tendinitis of right leg 11/07/2022 Prostate cancer ([facility]) Vascular disease Past Surgical History: Procedure Laterality Date 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/08/2018 Procedure: LEFT MIDFOOT AMPUTATION; Surgeon: Flynn Mann DPM; Location: [facility]; Service: Podiatry ANKLE SURGERY Left BYPASS PERONEAL FEMORAL Right 09/07/2018 Procedure: BYPASS PERONEAL FEMORAL, RIGHT SAPHENOUS VEIN HARVEST, COMPLETION ANGIOGRAM; Surgeon: Mohsen Sarabia MD; Location: [facility]; Service: Cardiovascular CARDIAC CATHETERIZATION Left 09/05/2018 Procedure: Angio Lower Extremity; Surgeon: Ben Hahn MD; 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; Service: Cardiovascular CARDIAC SURGERY 2017 triple bypass EGD N/A 10/10/2018 Procedure: ESOPHAGOGASTRODUODENOSCOPY; Surgeon: Ben Jensen MD; Location: [facility]; Service: Gastroenterology EYE SURGERY Right 2015 FOOT SURGERY ORTHOPEDIC SURGERY STENT PLACEMENT Social History [1] Family History Problem Relation Age of Onset No Known Problems Mother Heart disease Father Prostate cancer Brother Cancer Paternal Aunt Home Medications: Active Home Medications Medication Sig Take Last Dose On Take Morning of Surgery Comment(s) albuterol (PROVENTIL) 2.5 mg /3 mL (0.083 %) nebulizer solution Take 3 mL (2.5 mg total) by nebulization every 6 (six) hours as needed for wheezing . albuterol 90 mcg/actuation inhaler Inhale 2 (two) puffs every 4 (four) hours as needed for wheezing, shortness of breath or cough . aspirin 81 mg cap Take 1 (one) capsule (81 mg total) by mouth daily . atorvastatin (LIPITOR) 40 MG tablet Take 0.5 (one-half) tablet (20 mg total) by mouth 2 (two) times a day 1/2 tab . Calmoseptine 0.44-20.6 % Oint (Patient not taking: Reported on 03/14/2025) fluticasone (FLONASE) 50 mcg/actuation nasal spray 2 (two) sprays by Each Nare route daily . ipratropium-albuteroL (DUO-NEB) 0.5-2.5 mg/3 ml nebulizer Take 3 mL by nebulization 3 (three) times a day . losartan (COZAAR) 50 MG tablet Take 1 (one) tablet (50 mg total) by mouth daily . metoprolol tartrate (LOPRESSOR) 50 MG tablet Take 1 (one) tablet (50 mg total) by mouth 2 (two) times a day . nitroGLYCERIN (NITROSTAT) 0.[address] 1 tablet as needed by sublingual route. omeprazole (PRILOSEC) 20 MG capsule Take 1 (one) capsule (20 mg total) by mouth daily . ondansetron (ZOFRAN) 4 MG tablet oxyCODONE-acetaminophen (PERCOCET) 5-325 mg per tablet Take 1 (one) tablet by mouth every 6 (six) hours as needed for pain . pneumococcal conj. 13-valent (Prevnar 13, PF,) 0.5 mL vaccine polyethylene glycol (MIRALAX) 17 gram powder Take 17 (seventeen) g by mouth daily . rivaroxaban (XARELTO) 2.5 mg tablet Take 1 (one) tablet (2.5 mg total) by mouth 2 (two) times a day . urea (CARMOL) 40 % Crea zolpidem (AMBIEN) 10 mg tablet Take 1 (one) tablet (10 mg total) by mouth nightly as needed . Physical Exam: BP (!) 159/69 (BP Location: Right arm, Patient Position: Sitting) Pulse 78 Temp 97.8 F (36.6 C) (Oral) Resp 18 Ht 6' 2 Wt 113.4 kg (250 lb) SpO2 94% BMI 32.10 kg/m General: no acute distress Eyes: EOMI, anicteric ENT: neck supple Cardiovascular: Regular rate. Respiratory: Clear to auscultation, symmetric chest rise Gastrointestinal: Soft, non tender, non distended Genitourinary: no suprapubic tenderness Musculoskeletal: No edema Skin: warm, dry Neuro: Alert. Oriented. Moves all extremities. Psych: Mood appropriate. Labs, Imaging, and Studies reviewed: Results from last 7 days Lab Units 03/14/25 1128 WBC K/mcL 3.50* HGB g/dL 13.2* HCT % 39.3* PLT K/mcL 173 Results from last 7 days Lab Units 03/14/25 1128 SODIUM mmol/L 139 POTASSIUM mmol/L 3.8 CHLORIDE mmol/L 102 BICARB mmol/L 25 BUN mg/dL 20 CREATININE mg/dL 1.12 EGFR mL/min/1.73 m2 64 GLUCOSE mg/dL 100* Results from last 7 days Lab Units 03/14/25 1128 INR 1.1 Portions of this note were dictated using dictation software. Attempts were made to proofread however errors might still exist. Please do not hesitate to contact me via the [facility] Directory if any error has made critical portions of the note difficult to interpret. [1] Social History Socioeconomic History Marital status: Tobacco Use Smoking status: Never Smokeless tobacco: Never Vaping Use Vaping status: Never Used Substance and Sexual Activity Alcohol use: Not Currently Drug use: Never Sexual activity: Not Currently Social Drivers of Health Financial Resource Strain: Low Risk (06/21/2024) Received from [facility] Overall Financial Resource Strain (CARDIA) Difficulty of Paying Living Expenses: Not hard at all Food Insecurity: No Food Insecurity (06/21/2024) Received from [facility] Hunger Vital Sign Worried About Running Out of Food in the Last Year: Never true Ran Out of Food in the Last Year: Never true Transportation Needs: No Transportation Needs (06/21/2024) Received from [facility] PRAPARE - Transportation Lack of Transportation (Medical): No Lack of Transportation (Non-Medical): No Physical Activity: Insufficiently Active (06/21/2024) Received from [facility] Exercise Vital Sign Days of Exercise per Week: 7 days Minutes of Exercise per Session: 10 min Stress: No Stress Concern Present (06/21/2024) Received from [facility] Citizen [place] of Occupational Health - Occupational Stress Questionnaire Feeling of Stress : Not at all Housing Stability: Low Risk (06/21/2024) Received from [facility] Housing Stability Vital Sign Unable to Pay for Housing in the Last Year: No Number of Times Moved in the Last Year: 0 Homeless in the Last Year: No documented in this encounter [facility] 03-17-2025 Progress note Formatting of t his note might be different from the original. Asked to provide cardiac risk stratification for upcoming vascular surgery. Patient with history of CABG in 2017 and ECHO within the last year (04/2024). He has preserved EF with no clinical signs of heart failure. He denies angina. Discussed case collaboratively with Dr. Mast. Ok to proceed for vascular surgery at acceptable cardiac risk without additional cardiac testing. Cosigned by Mary Mast MD at 03/17/2025 7:03 PM EDT Associated attestation - Mary Mast MD - 03/17/2025 7:03 PM EDT I have discussed the case in detail the patient and with Catina, and agree with her note. The patient has normal left ventricular function by echocardiography within the last year, had revascularization with CABG, and has no symptoms of chest pain or anginal equivalent symptoms or symptoms or findings of heart failure. He has critical limb ischemia. In this setting, I believe he is an acceptable risk from a cardiovascular standpoint, and should proceed without further testing. I do not believe any further testing or procedures would improve his cardiovascular risk and may unnecessarily delay his procedure. Again from our standpoint is okay to proceed with cardiac clearance provided. We will be available as needed for any cardiac issues. [facility] 03-17-2025 Note [facility] Inpatient Pro lucy Note 03/17/2025 Tristin Powell 1940 [id number] Assessment/Plan: Tristin Powell is a 85 y.o. male with a history of Peripheral Artery Disease s/p Bypass, Afib (Xarelto), Diastolic Heart Failure, Coronary Artery Disease s/p CABG, recent balloon angioplasty 03/12/2025,. presented to [facility] ED on 03/14/2025 from Vascular Surgery clinic with intractable right foot pain. Found to have critical right LE ischemia Critical right lower limb ischemia: History of PAD. Follows Dr. Beaver ([facility]) and Dr. Sarabia (Vascular Surgery) s/p left femoral to peroneal bypass using contralateral reverse greater saphenous vein and partial left foot amputation (09/07/2018 - Dr. Sarabia). S/p angiogram 03/12/25 (Dr. Beaver) with balloon of SFA. Arterial Duplex 03/14/25: 50-99% stenosis in the right mid superficial femoral artery. ABIs 03/14/25: With severe 1 small vessel disease of the right foot. Continued aspirin, statin and heparin gtt. S/p Plavix. Resume home AC as able. Angiogram planned 03/17/25. Peripheral Vascular Cardiology and Vascular Surgery following. Preop clearance: CABG history with A-fib. Referred to PV cardiology. Acute on Chronic Pain Syndrome: with opiate dependence. Continued home Percocet with increased dose. IV Dilaudid added. CAD: Followed by [facility] s/p 3 vessel coronary artery bypass grafting in 2017 and 7 stents. Meds as above Chronic Diastolic Heart Failure: TTE 04/2024: LVEF 55% grade 1 diastolic dysfunction, moderate aortic regurgitation, moderate mitral regurgitation, mild tricuspid regurgitation. Appeared euvolemic on admission. Continued home losartan and lasix every other day. Paroxysmal Afib:: Held home Xarelto. Continued Lopressor. Initiated heparin gtt Valvular disease: Mild to moderate aortic valve regurg and mild to moderate mitral valve regurg, mild tricuspid and pulmonic valve regurg. Shown on echo 05/13/2024. Outpatient surveillance advised. Aortic root dilatation: 4.1 cm on echo. Patient surveillance Lymphopenia: Baseline WBC normal. WBC of 3.5 (ANC 1.9k) on 03/14/2025. WBC 4.27 03/16/2025 Prolonged QTc: 502-03/15/2025. Previously stable. Repeat 464 CKD IIIa: Baseline SCr ~1.2, SCr 1.1 on 03/14/25. Monitored. Chronic Anemia: baseline Hgb ~11-13. Hgb of 13.2 (MCV 91) on 03/14/25. Asymptomatic bilateral carotid stenosis: No history of CVA. Shown on duplex 04/2024. AC/AP as above Insomnia: Continue zolpidem Prostate Cancer: s/p brachytherapy, reportedly in remission. COPD: no evidence of acute exacerbation on admit. Reduced Mobility: present prior to admission. PTOT. Class I Obesity: Body mass index is 32.1 kg/m . Recommended lifestyle changes. 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 Estimated discharge date: 03/20/2025 Medically Ready for Discharge: no - needs revascularization plan *Alonzo (son) updated at bedside 03/15/25 Subjective: Seen at bedside. Reports that pain has worsened and is requiring more medications EKG tracing personally reviewed Qtc 464 Hb dropped to 11 from 12 On hep gtt-high risk medication. Needs closer monitoring. Planning revascularization today. Discussed with cardiology's physician personally about preop clearance. They will be doing it shortly. No official cardiology consult needed. On IV Dilaudid. High risk medication. Needs closer monitoring-Percocet and IV Dilaudid dose increased Physical Exam: BP 136/65 (BP Location: Right arm, Patient Position: Lying) Pulse 68 Temp 98.1 degrees F (36.7 degrees C) (Oral) Resp 16 Ht 6' 2 Wt 110.2 kg (242 lb 15.2 oz) SpO2 92% BMI 31.19 kg/m General: NAD Eyes: EOMI, sclera clear ENT: neck supple Cardiovascular: Regular rate, no murmur Respiratory: Clear to auscultation, symmetric air entry Gastrointestinal: Soft, non tender, non distended, positive bowel sounds Genitourinary: no CVA tenderness Musculoskeletal: no major joint deformity: RLE tired leg and comber tender to touch. Moving well with mild pain.: Decreased sensation in the foot. Warm. Left midfoot amputation Skin: warm, dry, no LE edema Neuro: Alert, oriented x3, no focal motor deficits Psych: Mood appropriate Current Medications: acetaminophen 650 mg Oral Q4H While awake aspirin 81 mg Oral Daily atorvastatin 80 mg Oral Nightly azelastine 1 spray Each Nare Daily furosemide 20 mg Oral Every Other Day losartan 50 mg Oral Daily with lunch metoprolol tartrate 50 mg Oral BID pantoprazole 40 mg Oral Daily polyethylene glycol 17 g Oral Daily tamsulosin 0.4 mg Oral After evening (more content not included)... [facility] 03-17-2025 Note Formatting of this n ote might be different from the original. PHYSICAL THERAPY VISIT VARIANCE NOTE Attempted to see patient at this time, but unable secondary to: Awaiting Medical Clearance (comment) (scheduled for OR today). Will follow up as appropriate. [facility] 03-17-2025 Note Formatting of this n ote might be different from the original. OCCUPATIONAL THERAPY VISIT VARIANCE NOTE Attempted to see patient at this time, but unable secondary to: Awaiting Medical Clearance (Pending OR today). Will follow up as appropriate. [facility] 03-16-2025 Note VASCULAR SURGERY PRO LUCY NOTE Patient Name: Tristin Powell Reason for Consult: RLE rest pain ASSESSMENT AND PLAN Tristin Powell is a 85 y.o. male with history of arotic stenosis, HTN, dyslipidemia, HFpEF, ascending/thoracic aortic aneurysm (4.[address] dated 04/2024), CAD (NSTEMI; s/p 3v CABG), paroxysmal a.fib, aortic & mitral valve disease, COPD, CKD stage 3, PAD, s/p left fem to peroneal bypass ([facility], [facility]), left TMA who presented to [facility] on 03/14/2025 with worsening RLE pain and discoloration. Arterial Duplex (03/14/25): 50-99% stenosis in the right mid SFA YAMILE's (03/14/25): Right YAMILE is 0.50. Left YAMILE is 0.55. CTLI IV Aortic Stenosis -Admitted to medicine -Patient added on for LLE fem-tib bypass w/ Dr. Sarabia tomorrow -Okay for diet as tolerated, NPO mn -Will pause heparin gtt OCTOR -Continue ASA 81, do not restart plavix -ABX OCTOR, PT/INR and T&S -D/w Dr. Sarabia Beena Barraza MD General Surgery Resident, PGY-2 [facility] Please contact surgical editorial intern distribution designer 5PM-6AM and weekends - #[phone] VTS Pager - #[phone] Subjective NAEO. Is ready for surgery tomorrow, all questions and concerns attended to PHYSICAL EXAM VITALS BP (!) 142/65 (BP Location: Right arm, Patient Position: Lying) Pulse 71 Temp 97.7 degrees F (36.5 degrees C) (Oral) Resp 18 Ht 6' 2 Wt 110.2 kg (242 lb 15.2 oz) SpO2 94% BMI 31.19 kg/m PHYSICAL EXAM General: Awake and alert, no acute distress Head: Normocephalic, atraumatic Eyes: No scleral icterus, EOM grossly intact Neck: Trachea midline Cardiovascular: Hemodynamically stable, regular rate Pulmonary: Nonlabored breathing, equal chest rise Extremities: LLE with evidence of TMA. RLE foot and distal ankle appear red and swollen. Doppler signal present in PT of LLE. No gangrene. Motor and sensory intact Skin: Dry and intact, no obvious rash Neurological: LUU, no gross focal deficits GI: Abd soft, nondistended. IMAGING/LABS Interval imaging and laboratory results reviewed AUTHENTICATED BY BEENA BARRAZA, ON 03/16/2025 11:03:23 [facility] 03-16-2025 Note Endovascular team no te: I have seen and examined the patient, reviewed the chart, reviewed both recent and remote angiograms and interventional films from outside through a link that was provided to Demetrice Escobar and Dr. Hahn, and have discussed the case with the patient, his son Richard who is at bedside, with Dr. Hahn, Dr. Sarabia, and Mirna. 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 This has been known since 2019 when he was seen by Dr. Hahn, and he had undergone a prior TMA on the left. He has had significant worsening with severe right foot pain at rest and rubor. 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 Importantly this has been chronic since 2019 on prior angiography. Angioplasty was performed the right SFA to try to improve geniculate collateral flow. With this he has had worsening severe rest pain and discomfort as well as color change. He has YAMILE of 0.5 but flat metatarsal and toe waveforms. He underwent vein mapping studies. Dr. Sarabia feels that he has venous conduit (from arm possibly) that can be used for a femoral tibial bypass operation. In collaborative vascular discussions with Cornell Butler, the family, myself this is felt to be the most predictable option for complete revascularization (at least 6 years of occlusion, with significant risk of embolization even if we are able to cross this into single-vessel runoff), as well as a most durable solution. Dr. Sarabia had spoken with the patient yesterday, and the team will see the patient today, with tentative plans for bypass operation tomorrow under her direction. The patient has ongoing rest pain but is stable with no major progression. Both the patient and son understand the collaborative process on the patient's behalf, and the plan for bypass operation as the best option. AUTHENTICATED BY MARY MAST, ON 03/16/2025 10:52:42 [facility] 03-16-2025 Note [facility] 03/16/2025 Tristin Powell 1940 [id number] Assessment/Plan: Tristin Powell is a 85 y.o. male with a history of Peripheral Artery Disease s/p Bypass, Afib (Xarelto), Diastolic Heart Failure, Coronary Artery Disease s/p CABG, Hypertension, CKD III, COPD, Prostate Cancer, and Insomnia. Patient had outpatient angiogram 03/12/25 with balloon angioplasty. He presented to [facility] ED on 03/14/2025 from Vascular Surgery clinic with intractable right foot pain. In ED: right YAMILE 0.5; 50-99% stenosis in right mid superficial femoral artery; WBC 3.5. Course prolonged due to need for angiogram and Xarelto washout. Peripheral Artery Disease: Followed by Dr. Beaver ([facility]) and Dr. Sarabia (Vascular Surgery) s/p left femoral to peroneal bypass using contralateral reverse greater saphenous vein and partial left foot amputation (09/07/2018 - Dr. Sarabia). S/p angiogram 03/12/25 (Dr. Beaver) with balloon of SFA. Arterial Duplex 03/14/25: 50-99% stenosis in the right mid superficial femoral artery. ABIs 03/14/25: right YAMILE 0.50; left YAMILE is 0.55; severe small vessel disease in right foot. Continued home aspirin and statin. S/p Plavix. Held home Xarelto for procedure. Angiogram planned 03/17/25. Peripheral Vascular Cardiology and Vascular Surgery following. Acute on Chronic Pain Syndrome: with opiate dependence. Reviewed NARx: filled Percocet 5-325mg (#120, 30d supply) last on 02/13/25; continued with additional for acute pain. CAD: Followed by [facility] s/p 3 vessel coronary artery bypass grafting in 2017 and 7 stents. Chronic Diastolic Heart Failure: TTE 04/2024: LVEF 55% grade 1 diastolic dysfunction, moderate aortic regurgitation, moderate mitral regurgitation, mild tricuspid regurgitation. Appeared euvolemic on admission. Continued home losartan and lasix every other day. Paroxysmal Afib:: Held home Xarelto. Continued on Lopressor. Initiated heparin gtt Lymphopenia: Baseline WBC normal. WBC of 3.5 (ANC 1.9k) on 03/14/2025. WBC 4.27 03/16/2025 Coagulopathy: Baseline PT normal. PT 14.6, INR 1.1 on 03/14/2025. Prolonged QTc: 502-03/15/2025. Previously stable. Repeat pending 03/16/2025 CKD IIIa: Baseline SCr ~1.2, SCr 1.1 on 03/14/25. Monitored. Chronic Anemia: baseline Hgb ~11-13. Hgb of 13.2 (MCV 91) on 03/14/25. Insomnia: reviewed NARx report, consistent fills of zolpidem 10mg (#30, 30d supply) with last fill 02/13/25. Continued. Prostate Cancer: s/p brachytherapy, reportedly in remission. COPD: no evidence of acute exacerbation on admit. Reduced Mobility: present prior to admission. PTOT. Class I Obesity: Body mass index is 32.1 kg/m . Recommended lifestyle changes. 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 Estimated discharge date: 03/18/2025 Medically Ready for Discharge: no - needs revascularization plan *Alonzo (son) updated at bedside 03/15/25 Subjective: Seen at bedside. Reports pain is controlled with medications but without medication that hurts. On heparin GTT. High risk medication. Needs closer monitoring. Possible revascularization procedure tomorrow. Hemoglobin stable at 12. Repeat EKG pending to assess QTc Physical Exam: BP (!) 142/65 (BP Location: Right arm, Patient Position: Lying) Pulse 71 Temp 97.7 degrees F (36.5 degrees C) (Oral) Resp 18 Ht 6' 2 Wt 110.2 kg (242 lb 15.2 oz) SpO2 94% BMI 31.19 kg/m General: NAD Eyes: EOMI, sclera clear ENT: neck supple Cardiovascular: Regular rate, no murmur Respiratory: Clear to auscultation, symmetric air entry Gastrointestinal: Soft, non tender, non distended, positive bowel sounds Genitourinary: no CVA tenderness Musculoskeletal: no major joint deformity: RLE tired leg and comber tender to touch. Moving well with mild pain.: Decreased sensation in the foot. Warm. Left midfoot amputation Skin: warm, dry, no LE edema Neuro: Alert, oriented x3, no focal motor deficits Psych: Mood appropriate Current Medications: acetaminophen 650 mg Oral Q4H While awake aspirin 81 mg Oral Daily atorvastatin 80 mg Oral Nightly azelastine 1 spray Each Nare Daily furosemide 20 mg Oral Every Other Day losartan 50 mg Oral Daily with lunch metoprolol tartrate 50 mg Oral BID pantoprazole 40 mg Oral Daily polyethylene glycol 17 g Oral Daily tamsulosin 0.4 mg Oral After evening meal zolpidem 10 mg Oral Nightly Labs, Imaging and Studies reviewed: Results from last 7 days Lab Units 03/16/25 0328 03/15/25 1002 03/15/25 0305 03/14/25 1128 WBC K/mcL 4.27* -- 3.23* 3.50* HGB g/dL 12.0* 12.4* 11.7* 13.2* HCT % 36.7* 31.0* 34.9* 39.3* PLT K/mcL 159 -- 144* (more content not included)... [facility] 03-15-2025 Progress note Formatting of t his note might be different from the original. Bedside report was completed including the discussion of the following, if applicable: Electronic Medical Record Review Deterioration Index (DI) Score Physician orders - active & held orders OCT - overdue & held meds Infusing medications/fluids HAND OFF COMPLETED IN OCT Peripheral IVs IV dressing clean, dry, and intact IV tubing changed less than 96 hours IV tubing dated, initialed, labeled IV changed less than equal to 96 hours Skin Integrity Turning schedule and last turned Dressings clean, dry, and intact Skin Assessment completed - Falls Fall risk score Intervention Bundle (check all in place) Door sign Bed/Chair Alarm on Fall Risk band Non-skid socks Patient centered interventions TELE Leads connected Tele Box on and working appropriately Verified by note author and KULDEEP Jean. [facility] 03-15-2025 Consult note Associated Order (s): IP CONSULT TO CARE MANAGEMENT Care Management Consult Note Date: 03/15/2025 Time: 12:32 PM Patient Name: Tristin Powell Date of : 1940 Reason for Consult: Discharge Plan: D/C Disposition: Home Health Care Services Related to Current Admission?: Yes Plan A: Home Health Care Services Plan B: Home Discharging Transportation Plan: Transportation Type: Auto Discharge Plan Status: SIGN PAINTER HELPER consulted for discharge needs. PT recommending therapy 2-3 days per week. OT pending. SIGN PAINTER HELPER met with pt at bedside to discuss HHC level of care. Pt agreeable HHC. Pt with no [preference of agency. Pt's son will be primary caregiver upon discharge and will transport pt home when medically ready. SIGN PAINTER HELPER confirmed pt demographics including address on file, active PCP and insurance coverage Will send home fabio consult once OT recommendations are placed. Will continue to follow. Assessment and Background Information: Living Arrangements: Family members Caregiver Identified: No Support Systems: Children Assistance Needed: no Type of Residence: Private residence Prior to Admission Home Care Services: No Type of Current Home Care Services: Home health care Current Home Equipment: Wheel chair Holistic Assessment Medication adherence problem:: No History of falls in last 6 months:: No Family aware of the patient's advance care planning wishes:: Yes Do you have any cultural/spiritual connections or beliefs that would impact how we deliver your care?: No [facility] 03-15-2025 Note [facility] Inpatient Pro lucy Note 03/15/2025 Tristin Powell 1940 [id number] Assessment/Plan: Tristin Powell is a 85 y.o. male with a history of Peripheral Artery Disease s/p Bypass, Afib (Xarelto), Diastolic Heart Failure, Coronary Artery Disease s/p CABG, Hypertension, CKD III, COPD, Prostate Cancer, and Insomnia. Patient had outpatient angiogram 03/12/25 with balloon angioplasty. He presented to [facility] ED on 03/14/2025 from Vascular Surgery clinic with intractable right foot pain. In ED: right YAMILE 0.5; 50-99% stenosis in right mid superficial femoral artery; WBC 3.5. Course prolonged due to need for angiogram and Xarelto washout. Peripheral Artery Disease: Followed by Dr. Beaver ([facility]) and Dr. Sarabia (Vascular Surgery) s/p left femoral to peroneal bypass using contralateral reverse greater saphenous vein and partial left foot amputation (09/07/2018 - Dr. Sarabia). S/p angiogram 03/12/25 (Dr. Beaver) with balloon of SFA. Arterial Duplex 03/14/25: 50-99% stenosis in the right mid superficial femoral artery. ABIs 03/14/25: right YAMILE 0.50; left YAMILE is 0.55; severe small vessel disease in right foot. Continued home aspirin and statin. Held home Xarelto for procedure. Started Plavix. Angiogram planned 03/17/25. Peripheral Vascular Cardiology and Vascular Surgery following. Acute on Chronic Pain Syndrome: with opiate dependence. Reviewed NARx: filled Percocet 5-325mg (#120, 30d supply) last on 02/13/25; continued with additional for acute pain. CAD: Followed by [facility] s/p 3 vessel coronary artery bypass grafting in 2017 and 7 stents. Chronic Diastolic Heart Failure: TTE 04/2024: LVEF 55% grade 1 diastolic dysfunction, moderate aortic regurgitation, moderate mitral regurgitation, mild tricuspid regurgitation. Appeared euvolemic on admission. Continued home losartan and lasix every other day. Paroxysmal Afib:: Held home Xarelto. Continued on Lopressor. Initiated heparin gtt Lymphopenia: Baseline WBC normal. WBC of 3.5 (ANC 1.9k) on 03/14/2025. Coagulopathy: Baseline PT normal. PT 14.6, INR 1.1 on 03/14/2025. Prolonged QTc: 502-03/15/2025. Previously stable. Repeat pending 03/16/2025 CKD IIIa: Baseline SCr ~1.2, SCr 1.1 on 03/14/25. Monitored. Chronic Anemia: baseline Hgb ~11-13. Hgb of 13.2 (MCV 91) on 03/14/25. Insomnia: reviewed NARx report, consistent fills of zolpidem 10mg (#30, 30d supply) with last fill 02/13/25. Continued. Prostate Cancer: s/p brachytherapy, reportedly in remission. COPD: no evidence of acute exacerbation on admit. Reduced Mobility: present prior to admission. PTOT. Class I Obesity: Body mass index is 32.1 kg/m . Recommended lifestyle changes. 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 Estimated discharge date: 03/18/2025 Medically Ready for Discharge: no - needs revascularization plan *Alonzo (son) updated at bedside 03/15/25 Subjective: Seen at bedside. Denies any complaints. Son at bedside. Updated plan of care. HB dropped to 11.7 from 13.2 yesterday but improved to 12.4. Heparin GTT not needed for PAD but has history of A-fib. Heparin GTT started. on heparin GTT. High risk medication. Needs closer monitoring Repeat pending EKG tracing personally reviewed. Sinus rhythm with PVCs. Heart rate 93. QTc 502 Physical Exam: BP 131/62 (BP Location: Right arm, Patient Position: Lying) Pulse 84 Temp 99 degrees F (37.2 degrees C) (Oral) Resp 16 Ht 6' 2 Wt 110.2 kg (242 lb 15.2 oz) SpO2 91% BMI 31.19 kg/m General: NAD Eyes: EOMI, sclera clear ENT: neck supple Cardiovascular: Regular rate, no murmur Respiratory: Clear to auscultation, symmetric air entry Gastrointestinal: Soft, non tender, non distended, positive bowel sounds Genitourinary: no CVA tenderness Musculoskeletal: no major joint deformity: RLE tired leg and comber tender to touch. Moving well with mild pain.: Left midfoot amputation Skin: warm, dry, no LE edema Neuro: Alert, oriented x3, no focal motor deficits Psych: Mood appropriate Current Medications: acetaminophen 650 mg Oral Q4H While awake aspirin 81 mg Oral Daily atorvastatin 80 mg Oral Nightly azelastine 1 spray Each Nare Daily enoxaparin (LOVENOX) injection 40 mg Subcutaneous Daily furosemide 20 mg Oral Every Other Day losartan 50 mg Oral Daily with lunch metoprolol tartrate 50 mg Oral BID pantoprazole 40 mg Oral Daily polyethylene glycol 17 g Oral Daily tamsulosin 0.4 mg Oral After evening meal zolpidem 10 mg Oral Nightly Labs, Imaging and Studies reviewed: Results from last 7 days Lab Units 03/15/25 0305 03/14/25 1128 WBC K/mcL 3.23* 3.50* HGB g/dL 11.7* 13.2* (more content not included)... [facility] 03-15-2025 Consult note Formatting of th is note is different from the original. Physical Therapy PHYSICAL THERAPY EVALUATION and TREATMENT NOTE PHYSICAL THERAPY EVALUATION Skilled Therapy Needs After Discharge Anticipate Resolution of Current Assessment Limitations Including: Mechanical Barriers, Pain Are scale tester Therapy Services Needed After Discharge: Yes Intensity of scale tester Therapy: 2-3 days per week Anticipated Duration of scale tester Therapy: Duration 10 - 30 days PT DME Recommendation: None Rehab Potential: Good Outcomes Measures Prior Function - Basic Mobility Raw Score: 24 Points Prior Function - Basic Mobility % Impaired: 0% AM-PAC Basic Mobility Raw Score: 17 Points AM-PAC Basic Mobility % Impaired: 43.83% Physical Therapy Assessment History: The following factors influence the patient's participation in the PT plan of care: Personal Factors: Body Habitus, Social Barriers, Age, Education Level, Decreased Insight, Limited Baseline Mobility Environmental Factors: Steps to enter home The following co-morbidities (from this admission or prior) influence the patient's participation in this plan of care: Peripheral Artery Disease s/p Bypass, Afib (Xarelto), Diastolic Heart Failure, Coronary Artery Disease s/p CABG, Hypertension, CKD III, COPD, Prostate Cancer, and Insomnia Number of History elements affecting this patient's PT plan of care: 3 or more Examination of Body Systems: The patient presents with: Musculoskeletal impairments: Strength, Pain, Functional Endurance Neurologic Impairments: Balance, Pain Cardiopulmonary Impairments: Activity Tolerance Vascular Impairments: Amputation. These impairments result in limitations of Gait, Stair-Climbing, Safety, Safety Awareness, Activity Tolerance, Insight. These impairments result in restrictions of Community mobility, Leisure activities. Number of Body Systems elements affecting this patient's PT plan of care: 4 or more. Clinical Presentation: The patient's clinical presentation for this PT evaluation is evolving with changing characteristics as evidenced by current PT documentation. Activity Tolerance Activity Tolerance: Tolerates less than 10 min activity, no significant change in vital signs Therapy Precautions Orthotic Devices: Yes Lower Extremity: AFO (left leg. present in room) Weight Bearing Status: WFL General Rehab Precautions: Fall risk Balance Assessment Sitting Balance - Static: Supervision Sitting Balance - Dynamic: Supervision Standing Balance - Static: Contact guard assist Careers Counsellor - Standing Static: wheeled walker Standing Balance - Dynamic: Contact guard assist Careers Counsellor - Standing Dynamic: same first aid director used for static standing tasks Bed Mobility Rolling: Supervision Supine to Sit: Supervision Sit to Supine: (patient sitting EOB) Careers Counsellor: bedrails Transfers Sit to Stand: Contact guard assist Careers Counsellor: wheeled walker Gait/Locomotion Gait Assistance: Contact guard assist Assistive Device: wheeled walker Distance: 100 Feet Pattern: decreased pamela (steps per minute), forward flexed Gait Loss(es) of Balance: multidirectional (Intermittent moment of left shoe hitting the ground with swing phase, requiring min A to maintain upright posture) Home Living Obtained Home Living and PLOF info from: Patient Lives With: (Brother. Brother is available to help as needed.) Type of Home: House Home Layout: One level Steps to enter home: Yes Rails to enter home: None Number of stairs to enter home: 1 Bathroom Shower/Tub: Tub/shower unit Bathroom Toilet: Raised Bathroom Equipment: Shower chair Mobility Equipment: (Reports no using AD but does own crutches, rollator and wheeled walker.) Prior Level of Function Level of [place] - Transfers/Ambulation/Mobility: Independent with community ambulation, Independent with household ambulation, Independent with functional transfers Level of [place] - ADLs: Independent Level of [place] - Homemaking: Independent Driving: Patient drives Vocational: Retired Subjective Impression - Prior Function: Pt reports independence with all activities. PHYSICAL THERAPY TREATMENT NOTE Total Treatment Time (Total Session Time): 16 Minutes Total Timed Code Treatment Minutes: 8 Minutes Neuromuscular Reeducation Gait Training Therapeutic Activities Bed Mobility Skilled Intervention Provided: verbal cues, monitoring patient response with positional changes, monitoring patient response with activity, patient education For: fall prevention, postural alignment Resulting in: improved activity tolerance, improved safety, improved performance Transfers Skilled Intervention Provided: verbal cues, monitoring patient response with activity, patient education For: postural alignment, efficient movement Resulting in: improved activity tolerance, improved safety, improved performance Functional Transfers (Car and/or Toilet Transfers) Therapeutic Exercises Additional Treatment Details Nursing clearance obtained prior to session. Patient demonstrated one moment of left shoe hitting the floor, requiring min A to maintain upright posture. Patient in bed at end of session, call light within reach and nurse present. Past Medical History: Diagnosis Date Arthritis Avascular necrosis of bone of hip ([facility]) Claudication COPD (chronic obstructive pulmonary disease) ([facility]) Coronary artery disease Herpes zoster Hyperlipidemia Hypertension PAD (peripheral artery disease) ([facility]) 01/21/2022 Posterior tibial tendinitis of right leg 11/07/2022 Prostate cancer ([facility]) Vascular disease Past Surgical History: Procedure Laterality Date 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/08/2018 Procedure: LEFT MIDFOOT AMPUTATION; Surgeon: Flynn Mann DPM; Location: [facility]; Service: Podiatry ANKLE SURGERY Left BYPASS PERONEAL FEMORAL Right 09/07/2018 Procedure: BYPASS PERONEAL FEMORAL, RIGHT SAPHENOUS VEIN HARVEST, COMPLETION ANGIOGRAM; Surgeon: Mohsen Sarabia MD; Location: [facility] NEURO OR; Service: Cardiovascular CARDIAC CATHETERIZATION Left 09/05/2018 Procedure: Angio Lower Extremity; Surgeon: Ben Hahn MD; 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 This note stands as the current Discharge Summary upon patient discharge from the hospital or completion of Physical Therapy Plan. [facility] 03-15-2025 Note Peripheral Vascular Cardiology Inpatient Follow-up Heart & Vascular [facility] Physician Group 03/15/2025 Mirna F[facility] Patient: Tristin Powell Date of : 1940 (85 y.o.) PCP: Flash Lovelace MD Assessment/Plan: Carotid stenosis, asymptomatic, bilateral Assessment & Plan Asymptomatic. No hx of CVA Non-invasive Studies: Carotid Duplex (04/2024): Left ICA with mild <50% stenosis of heterogenous plaque. Right ICA with moderate 50-69% stenosis of heterogenous plaque Coronary artery disease involving coronary bypass graft of [place] heart without angina pectoris Assessment & Plan S/p 3v CABG in 2016 Asymptomatic Critical lower limb ischemia (HCC) Assessment & Plan Presents from Dr. 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 Plan for RLE angio +/- intervention 03/17/25, with Dr. Mast Continue asa and Plavix therapies We will continue to monitor over the weekend * PAD (peripheral artery disease) (HCC) Assessment & Plan Longstanding, significant atherosclerotic disease with history of multiple endovascular and surgical interventions as outlined in the body of this note, please reference Plan: Continue ASA and statin therapies as prescribed. Subjective No acute events noted overnight. He is resting in bed comfortably. His exam remains stable. Repeat EKG Final Result by Interface, [facility]01[facility] Echocardiogram complete w contrast Final Result by Obdulio Mack MD (11/06/2022 1315) Echocardiogram complete Final Result by Emmanuel Connor MD (10/08/2018 1726) Cardiac Catheterization Final Result by Ben Hahn MD (09/05/2018 1614) LASTCCTADATE@@ Review of Systems: The following system(s) were reviewed and negative. Pertinent positive and negative findings are noted in the HPI. [x] Const [x] Eyes [x] ENT [x] Resp [] CV [x] GI [x] [x] Neuro [x] Musc [x] Skin [x] Psych [x] Endo [x] Allergy [x] Heme/Lymph Current Medications[1] Objective: Physical Examination: BP 131/62 (BP Location: Right arm, Patient Position: Lying) Pulse 84 Temp 99 degrees F (37.2 degrees C) (Oral) Resp 16 Ht 6' 2 Wt 110.2 kg (242 lb 15.2 oz) SpO2 91% BMI 31.19 kg/m Constitutional: Alert, not in distress.? Eyes: Conjunctivae/corneas clear. Lungs: Clear to auscultation, no wheezes, rales or rhonchi. Cardiovascular: Normal rate and regular rhythm Abdomen: Soft, nontender with normal active bowel sounds; no masses or organomegaly. Skin: Normal coloration and turgor; no rashes or lesions. Musculoskeletal: Normal Range of Motion (ROM) Psych: Oriented to time, person, and place; appropriate mood. No results found for: CHOL , LDLCALC , LDLDIRECT , TRIG , HDL Serum creatinine: 1.12 mg/dL 03/15/25 0305 Estimated creatinine clearance: 55 mL/min [1] Current Facility-Administered Medications Medication Dose Route Frequency Provider Last Rate Last Admin acetaminophen (TYLENOL) tablet 650 mg 650 mg Oral Q4H While a (more content not included)... [facility] 03-14-2025 Emergency department Note Pt placed on 2L NC now [facility] 03-14-2025 Emergency department Note Pt placed on 2L NC now [facility] to write admission orders [id number] ED PROVIDER NOTE [facility] EMERGENCY DEPARTMENT Patient Name: Tristin Powell Age: 85 y.o. : 1940 ED Visit Date: 03/14/25 Chief Complaint Patient presents with Leg Pain HPI / ROS 85-year-old male with history of peripheral artery disease and other medical problems who underwent bypass perineal femoral right saphenous vein with Dr. Sarabia in 2019 presents to the emergency department with complaints of right leg pain. He reports worsening pain to right lower extremity over the last 3 weeks. He has been taking Percocet with only minimal relief. He states it basically takes the edge off. He states this feels exactly like what went on with his left leg before he ended up requiring a midfoot amputation. He saw vascular surgery in office today and was referred down to the ED and advised to be hospitalized. He states he has been to be taking Xarelto but has only taken 1 dose in the last 3 days. He is also supposed be taking aspirin but admits he has not been taking that the last few days as well. He denies other acute complaints. MDM / ED Course On exam, patient is uncomfortable in appearance. IV was established and blood work sent to the lab. Patient was given Dilaudid for pain. Vascular surgery was consulted-they will come and evaluate the patient and determine whether he needs to be placed on heparin. They request that he be admitted to medical service. Laboratory studies include a chemistry significant only for glucose of 100. INR is 1.1. White count 3.5, hemoglobin 13.2 and platelets 175. ED Course as of 03/14/25 1327 MonMar 14, 2025 1326 Vascular surgery recommended PV cardiology consultation- I spoke with them in consult. They will see patient. [EK] ED Course User Index [EK] Elaine Macdonald MD [facility] Data: I saw and evaluated the patient. I reviewed the chief complaint, triage note, past medical/surgical, family, and social history. Discussed with staff/consultants. Shared decision making utilized. Social determinants of health impacted treatment/disposition. Clinical Impression: 1. Claudication 2. Right leg pain 3. Peripheral artery disease . ED Disposition ED Disposition Hospitalize Condition -- Comment Recommended Level of Care: Med Surg Phone call required?: No Patient's PCP: Flash Lovelace MD Follow-up Information Follow-up information has not been specified. Contact information for after-discharge care Follow-up information has not been specified. Physical Exam Patient Vitals for the past 24 hrs: BP Temp Temp src Pulse Resp SpO2 Height Weight 03/14/25 1110 129/64 97.7 F (36.5 C) Oral 75 16 95 % 6' 2 113.4 kg (250 lb) - Refer to [facility] section above for additional physical exam data. Physical Exam Vitals and nursing note reviewed. Constitutional: General: He is not in acute distress. Appearance: Normal appearance. He is normal weight. He is not ill-appearing or toxic-appearing. HENT: Head: Normocephalic and atraumatic. Musculoskeletal: General: Tenderness present. No swelling or deformity. Comments: AFO in place to left lower extremity. He reports transmetatarsal amputation to that foot. Right lower extremity with nonpalpable DP and PT pulse. I was able to Doppler a PT pulse that was faint. Unable to Doppler DP pulse. Patient with pain from knee down. Sensation diminished consistent with his history of neuropathy. Pulmonary: Effort: Pulmonary effort is normal. Skin: General: Skin is warm. Neurological: General: No focal deficit present. Mental Status: He is alert. Psychiatric: Mood and Affect: Mood normal. Review of Systems - Refer to HPI/ROS section above. - All systems reviewed and negative unless otherwise noted above. Past Medical, Surgical, Family, and Social History: Past Medical History: Diagnosis Date Arthritis Avascular necrosis of bone of hip ([facility]) Claudication COPD (chronic obstructive pulmonary disease) ([facility]) Coronary artery disease Herpes zoster Hyperlipidemia Hypertension PAD (peripheral artery disease) ([facility]) 01/21/2022 Posterior tibial tendinitis of right leg 11/07/2022 Prostate cancer ([facility]) Vascular disease Past Surgical History: Procedure Laterality Date 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/08/2018 Procedure: LEFT MIDFOOT AMPUTATION; Surgeon: Flynn Mann DPM; Location: [facility]; Service: Podiatry ANKLE SURGERY Left BYPASS PERONEAL FEMORAL Right 09/07/2018 Procedure: BYPASS PERONEAL FEMORAL, RIGHT SAPHENOUS VEIN HARVEST, COMPLETION ANGIOGRAM; Surgeon: Mohsen Sarabia MD; Location: [facility] OR; Service: Cardiovascular CARDIAC CATHETERIZATION Left 09/05/2018 Procedure: Angio Lower Extremity; Surgeon: Ben Hahn MD; 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; Service: Cardiovascular CARDIAC SURGERY 2017 triple bypass EGD N/A 10/10/2018 Procedure: ESOPHAGOGASTRODUODENOSCOPY; Surgeon: Ben Jensen MD; Location: [facility]; Service: Gastroenterology EYE SURGERY Right 2015 FOOT SURGERY ORTHOPEDIC SURGERY STENT PLACEMENT Family History Problem Relation Age of Onset No Known Problems Mother Heart disease Father Prostate cancer Brother Cancer Paternal Aunt Social History [1] Allergies and Medications: Allergies[2] Patient's Medications New Prescriptions No medications on file Previous Medications ALBUTEROL (PROVENTIL) 2.5 MG /3 ML (0.083 %) NEBULIZER SOLUTION Take 3 mL (2.5 mg total) by nebulization every 6 (six) hours as needed for wheezing . ALBUTEROL 90 MCG/ACTUATION INHALER Inhale 2 (two) puffs every 4 (four) hours as needed for wheezing, shortness of breath or cough . ASPIRIN 81 MG CAP Take 1 (one) capsule (81 mg total) by mouth daily . ATORVASTATIN (LIPITOR) 40 MG TABLET Take 0.5 (one-half) tablet (20 mg total) by mouth 2 (two) times a day 1/2 tab . CALMOSEPTINE 0.44-20.6 % OINT FLUTICASONE (FLONASE) 50 MCG/ACTUATION NASAL SPRAY 2 (two) sprays by Each Nare route daily . IPRATROPIUM-ALBUTEROL (DUO-NEB) 0.5-2.5 MG/3 ML NEBULIZER Take 3 mL by nebulization 3 (three) times a day . LOSARTAN (COZAAR) 50 MG TABLET Take 1 (one) tablet (50 mg total) by mouth daily . METOPROLOL TARTRATE (LOPRESSOR) 50 MG TABLET Take 1 (one) tablet (50 mg total) by mouth 2 (two) times a day . NITROGLYCERIN (NITROSTAT) 0.[address] 1 tablet as needed by sublingual route. OMEPRAZOLE (PRILOSEC) 20 MG CAPSULE Take 1 (one) capsule (20 mg total) by mouth daily . ONDANSETRON (ZOFRAN) 4 MG TABLET OXYCODONE-ACETAMINOPHEN (PERCOCET) 5-325 MG PER TABLET Take 1 (one) tablet by mouth every 6 (six) hours as needed for pain . PNEUMOCOCCAL CONJ. 13-VALENT (PREVNAR 13, PF,) 0.5 ML VACCINE POLYETHYLENE GLYCOL (MIRALAX) 17 GRAM POWDER Take 17 (seventeen) g by mouth daily . RIVAROXABAN (XARELTO) 2.5 MG TABLET Take 1 (one) tablet (2.5 mg total) by mouth 2 (two) times a day . UREA (CARMOL) 40 % CREA ZOLPIDEM (AMBIEN) 10 MG TABLET Take 1 (one) tablet (10 mg total) by mouth nightly as needed . Modified Medications No medications on file Discontinued Medications No medications on file Laboratory and Imaging Results (if any during ED visit) Results for orders placed or performed during the hospital encounter of 03/14/25 Chem 7 Result Value Ref Range Sodium 139 135 - 145 mmol/L Potassium 3.8 3.5 - 5.1 mmol/L Chloride 102 98 - 108 mmol/L Bicarbonate 25 21 - 32 mmol/L Anion Gap 16 10 - 20 mmol/L Glucose 100 (H) 65 - 99 mg/dL BUN 20 8 - 25 mg/dL Creatinine 1.12 0.80 - 1.30 mg/dL eGFR 64 >=60 mL/min/1.73 m2 BUN/Creatinine Ratio 17.9 10.0 - 20.0 PT/INR Result Value Ref Range Protime (PT) 14.6 (H) 11.8 - 14.3 seconds INR 1.1 0.8 - 1.1 CBC Auto Differential Result Value Ref Range WBC 3.50 (L) 4.50 - 11.00 K/mcL RBC 4.34 (L) 4.50 - 5.90 M/mcL Hemoglobin 13.2 (L) 13.5 - 17.5 g/dL Hematocrit 39.3 (L) 41.0 - 53.0 % MCV 90.6 80.0 - 100.0 fL MCH 30.4 26.0 - 34.0 pg MCHC 33.6 31.0 - 37.0 g/dL Platelets 173 150 - 400 K/mcL RDW - CV 13.5 11.6 - 14.8 % MPV 9.3 (L) 9.4 - 12.4 fL Neutrophils 54.0 % Lymphocytes 18.6 % Monocytes 23.1 % Eosinophils 3.4 % Basophils 0.6 % IG Percent 0.30 % Neutrophils Abs 1.89 1.70 - 7.00 K/mcL Lymphocytes Abs 0.65 (L) 0.90 - 4.00 K/mcL Monocytes Abs 0.81 0.30 - 0.90 K/mcL Eosinophils Abs 0.12 0.00 - 0.50 K/mcL Basophils Abs 0.02 0.00 - 0.30 K/mcL IG Absolute 0.01 0.00 - 0.30 K/mcL Nucleated RBC 0.0 % Nucleated RBC Abs 0.00 0.00 - 0.00 K/mcL No orders to display (All imaging is interpreted by radiologist) Procedures (if any during ED visit) Procedures -Elaine Macdonald MD 03/14/25 Note: Appropriate PPE utilized throughout this patient's ED course. Also, in an effort to expedite correspondence this note was partially generated by [employer] voice recognition software and is inherently subject to errors including those of syntax and sound-alike substitutions which may escape proofreading. In such instances, original meaning may be extrapolated by contextual derivation. Elaine Macdonald MD 03/14/25 1305 [1] Social History Socioeconomic History Marital status: Tobacco Use Smoking status: Never Smokeless tobacco: Never Vaping Use Vaping status: Never Used Substance and Sexual Activity Alcohol use: Not Currently Drug use: Never Sexual activity: Not Currently Social Drivers of Health Financial Resource Strain: Low Risk (06/21/2024) Received from [facility] Overall Financial Resource Strain (CARDIA) Difficulty of Paying Living Expenses: Not hard at all Food Insecurity: No Food Insecurity (06/21/2024) Received from [facility] Hunger Vital Sign Worried About Running Out of Food in the Last Year: Never true Ran Out of Food in the Last Year: Never true Transportation Needs: No Transportation Needs (06/21/2024) Received from [facility] PRAPARE - Transportation Lack of Transportation (Medical): No Lack of Transportation (Non-Medical): No Physical Activity: Insufficiently Active (06/21/2024) Received from [facility] Exercise Vital Sign Days of Exercise per Week: 7 days Minutes of Exercise per Session: 10 min Stress: No Stress Concern Present (06/21/2024) Received from [facility] - Occupational Stress Questionnaire Feeling of Stress : Not at all Housing Stability: Low Risk (06/21/2024) Received from [facility] Housing Stability Vital Sign Unable to Pay for Housing in the Last Year: No Number of Times Moved in the Last Year: 0 Homeless in the Last Year: No [2] Allergies Allergen Reactions Doxycycline Elevated blood pressure, GI intolerance/ nausea/vomiting Gabapentin GI Intolerance Images from the original note were not included. Pt presents to ED from OP appointment for concern of small vessel disease in RLE. Please see transfer note below: Ken Johnson CNP Nurse Practitioner Specialty: Cardiothoracic Surgery Progress Notes Sign when Signing Visit Encounter Date: 03/14/2025 Creation Time: 03/14/2025 7:56 AM Sign when Signing Visit Expand All Collapse All Patient Name: Tristin Powell MR #: [id number] Subjective: office nurse received call from daughter who expressed concern about patient losing his foot- he is in dire pain and his toes on his right foot are turning purple. Dr. Sarabia requested US Duplex Arterial RLE and ABIs, and here for office visit today documented in this encounter [facility] 03-14-2025 Progress note Formatting of t his note might be different from the original. Added to supervisor labor gang schedule for 03/17/25, with Dr. Mast for a RLE angio +/- intervention. Orders placed. Consent signed and given to supervisor labor gang. ASA and clopidogrel initiated. Again, no heparin gtt required unless needed in the setting of hx of paroxysmal a.fib (historically on Xarelto; however, has been held over the past week 2/2 RLE angio at [facility] as performed on 03/12/25). Additionally, please accept the corrections to my initial consult note (A/P & P/E sections) as listed below as I am unable to attend the original document post attestation: 2+ BL femoral and popliteal pulses. Unable [...] grossly insensate from toes to the ankle. [facility] 03-14-2025 Progress note Formatting of t his note might be different from the original. This nurse was able to get RLE angiogram from March 12, 2025 from [facility] sent electronically. This was sent to Juana Escobar NP. She was able to open and view. Images sent to appropriate staff per Juana Escobar CNP. Called and notified the patient's daughter that she does not have to get the disc from [place] and bring to [facility]. [facility] 03-14-2025 Evaluation + Plan note Associated Problem(s): Carotid stenosis, asymptomatic, bilateral Asymptomatic. No hx of CVA Non-invasive Studies: Carotid Duplex (04/2024): Left ICA with mild <50% stenosis of heterogenous plaque. Right ICA with moderate 50-69% stenosis of heterogenous plaque [facility] 03-14-2025 Evaluation + Plan note Associated Problem(s): Coronary artery disease involving coronary bypass graft of [place] heart without angina pectoris S/p 3v CABG in 2017 Asymptomatic [facility] 03-14-2025 Evaluation + Plan note Associated Problem(s): Critical lower limb ischemia (HCC) Presents from Dr. 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 Rohan Continue asa and Plavix therapies We will continue to monitor over the weekend [facility] 03-14-2025 Evaluation + Plan note Associated Problem(s): PAD (peripheral artery disease) (HCC) Longstanding, significant atherosclerotic disease with history of multiple endovascular and surgical interventions as outlined in the body of this note, please reference Plan: Continue ASA and statin therapies as prescribed. [facility] 03-14-2025 Consult note Associated Order (s): IP CONSULT TO CARDIOLOGY - PERIPHERAL VASC DISEASE Images from the original note were not included. Peripheral Vascular Cardiology Inpatient Consult Heart & Vascular [facility] 03/14/2025 Demetrice Escobar, CABINET INSTALLER [address] [address] Patient: Tristin Powell Date of : 1940 (85 y.o.) Referring Provider: No ref. provider found PCP: Flash Lovelace MD Assessment & Plan Coronary Artery Disease S/p 3v CABG in 2017 Asymptomatic BL Carotid Stenosis Asymptomatic. No hx of CVA Non-invasive Studies: Carotid Duplex (04/2024): Left ICA with mild <50% stenosis of heterogenous plaque. Right ICA with moderate 50-69% stenosis of heterogenous plaque PAD (peripheral artery disease) (HCC) Longstanding, significant atherosclerotic disease with history of multiple endovascular and surgical interventions as outlined in the body of this note, please reference Plan: Continue ASA and statin therapies as prescribed. Critical lower limb ischemia (HCC) Presents from Dr. 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 2+ BL femoral and popliteal pulses.Unable to readily palpate either right or left PT pulses or right DP pulse. Biphasic doppler signals over BL PT pulses. Doppler signal over right AT. No doppler signal over right PT. Reduced sensorimotor function, erythema/dependent rubor, and edema of the right foot. Dorsal surface: insensate to until the arch. Plantar surface: insensate from toes to the ankle. Plan: Continue to hold Xarelto for now. Heparin gtt if needed for hx of a.fib (not needed from a PV standpoint) Received images from RLE angiograms dated 03/12/25 and 10/12/23 from [facility]. Will review non-invasive studies as obtained earlier today as well as [facility] RLE angiograms with PV attending. Final disposition relative to request for repeat RLE angio +/- intervention to follow in PV attending attestation. Reason for consult: Leg Pain HPI: History of Present Illness: Tristin Powell is a 85 y.o. male with a PMHx most notable for carotid stenosis, HTN, dyslipidemia, HFpEF, ascending/thoracic aortic aneurysm (4.[address] dated 04/2024), CAD (NSTEMI; s/p 3v CABG), paroxysmal a.fib, aortic & mitral valve disease, COPD, CKD stage 3, and left transmetatarsal amputation who presented to an outpatient Vasc Surg Admission requested by Dr. Camacho al, Vasc Surg, based on outpatient visit conducted earlier today in view of complaints of excruciating right foot pain (particularly right hallux) and concerns for discoloration and digital ischemia. Pain NOT relieved with opioids. Per ED MD, no surgical options, PV consult recommended by Vasc Surg for consideration of LE angio. By chart review, recently underwent formal LE angio on 03/12/25 via [facility]. Follows with Dr. Carvalho, cardiology, at [facility]. Last OV 11/2024. Son is present at bedside. He relates to longstanding RLE claudication within the calf and foot which has slowly progressed over the last 6 months, most intensely - to the point of non-weight bearing and/or limited weight bearing + discoloration over the last week. He has been off of his rivaroxaban (Xarelto) for the last 4-5 days in preparation for the angio he just underwent 2 days ago. He admits to ischemic rest pain overnight x several months with minimal improvement when the leg is placed in a dependent position. He adds the right foot will look white if elevated long enough. His son adds that his father has been experiencing pain with greater intensity that he articulates over the last 3 weeks as he has received several calls wherein his father is in tears because of the pain. He has no wounds. He received his LLE prosthesis in 06/2024. With regard to his recent angio, he relates they told me I was open to about the knee then they hit a block they couldn't get through. His son articulates the pain has impeded his balance and he is concerned about falls. He also states we don't want him to lose that foot too because this is exactly how the left foot started before he lost it - and everything was drawn out. Relevant Vascular History: 06/2024: [facility] demonstrating stable coronary artery disease. Patent 3 out of 3 bypass grafts. Normal left filling pressures. Normal right filling pressures. Mild pulmonary hypertension. Normal cardiac output and cardiac index. Controlled systemic hypertension. 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 Aortic root 4.1-4.5 cm. 09/2018: Left transmetatarsal amputation 08/2018: left femoral-peroneal bypass per Dr. Sarabia on 09/15 following diagnostic LLE angio per Dr. Hahn on 09/05: LLE angio with laser atherectomy of the SFA, pop, TP trunk, and peroneal arteries and stents to SFA/pop/TP trunk per Dr. Vogt on 08/09: 3v CABG (CHAVEZ to diag, SVT to OM1, SVG to PDA) via [facility] 10/2007: [facility] with MARIA ESTHER to LAD and LCx Objective Imaging: I independently reviewed the non-invasive vascular studies and agree with the interpretation(s) ECG 12 Lead Final Result by Interface, Lab Results In [facility] (11/07/2022 1139) Echocardiogram complete w contrast Final Result by Obdulio Mack MD (11/06/2022 1315) Echocardiogram complete Final Result by Emmanuel Connor MD (10/08/2018 1726) Cardiac Catheterization Final Result by Ben Hahn MD (09/05/2018 1614) Review of Systems: The following system(s) were reviewed and negative. Pertinent positive and negative findings are noted in the HPI. [x] Const [x] Eyes [x] ENT [x] Resp [x] CV [x] GI [x] [x] Neuro [x] Musc [] Skin [x] Psych [x] Endo [x] Allergy [x] Heme/Lymph Past Medical History: Diagnosis Date Arthritis Avascular necrosis of bone of hip ([facility]) Claudication COPD (chronic obstructive pulmonary disease) ([facility]) Coronary artery disease Herpes zoster Hyperlipidemia Hypertension PAD (peripheral artery disease) ([facility]) 01/21/2022 Posterior tibial tendinitis of right leg 11/07/2022 Prostate cancer ([facility]) Vascular disease Past Surgical History: Procedure Laterality Date 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/08/2018 Procedure: LEFT MIDFOOT AMPUTATION; Surgeon: Flynn Mann DPM; Location: [facility]; Service: Podiatry ANKLE SURGERY Left BYPASS PERONEAL FEMORAL Right 09/07/2018 Procedure: BYPASS PERONEAL FEMORAL, RIGHT SAPHENOUS VEIN HARVEST, COMPLETION ANGIOGRAM; Surgeon: Mohsen Sarabia MD; Location: [facility]; Service: Cardiovascular CARDIAC CATHETERIZATION Left 09/05/2018 Procedure: Angio Lower Extremity; Surgeon: Ben Hahn MD; 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; Service: Cardiovascular CARDIAC SURGERY 2017 triple bypass EGD N/A 10/10/2018 Procedure: ESOPHAGOGASTRODUODENOSCOPY; Surgeon: Ben Jensen MD; Location: [facility]; Service: Gastroenterology EYE SURGERY Right 2015 FOOT SURGERY ORTHOPEDIC SURGERY STENT PLACEMENT Family History Problem Relation Age of Onset No Known Problems Mother Heart disease Father Prostate cancer Brother Cancer Paternal Aunt Tobacco Use History[1] Additional History Comments: None Allergies: Doxycycline and Gabapentin HOME Medications: Patient's Medications New Prescriptions No medications on file Previous Medications ALBUTEROL (PROVENTIL) 2.5 MG /3 ML (0.083 %) NEBULIZER SOLUTION Take 3 mL (2.5 mg total) by nebulization every 6 (six) hours as needed for wheezing . ALBUTEROL 90 MCG/ACTUATION INHALER Inhale 2 (two) puffs every 4 (four) hours as needed for wheezing, shortness of breath or cough . ASPIRIN 81 MG CAP Take 1 (one) capsule (81 mg total) by mouth daily . ATORVASTATIN (LIPITOR) 80 MG TABLET Take 0.5 (one-half) tablet (40 mg total) by mouth 2 (two) times a day /2 tab . AZELASTINE (ASTELIN) 137 MCG (0.1 %) NASAL SPRAY 1 (one) spray by Each Nare route daily . CALMOSEPTINE 0.44-20.6 % OINT Apply 1 Application topically daily as needed . FLUTICASONE (FLONASE) 50 MCG/ACTUATION NASAL SPRAY 2 (two) sprays by Each Nare route daily . FUROSEMIDE (LASIX) 20 MG TABLET Take 1 (one) tablet (20 mg total) by mouth daily as needed Reasons: visible water retention. IPRATROPIUM-ALBUTEROL (DUO-NEB) 0.5-2.5 MG/3 ML NEBULIZER Take 3 mL by nebulization 3 (three) times a day . LOSARTAN (COZAAR) 50 MG TABLET Take 1 (one) tablet (50 mg total) by mouth daily . METOPROLOL TARTRATE (LOPRESSOR) 50 MG TABLET Take 1 (one) tablet (50 mg total) by mouth 2 (two) times a day . NITROGLYCERIN (NITROSTAT) 0.[address] 1 tablet as needed by sublingual route. OMEPRAZOLE (PRILOSEC) 20 MG CAPSULE Take 1 (one) capsule (20 mg total) by mouth daily . ONDANSETRON (ZOFRAN) 4 MG TABLET OXYCODONE-ACETAMINOPHEN (PERCOCET) 5-325 MG PER TABLET Take 1 (one) tablet by mouth every 6 (six) hours as needed for pain . PNEUMOCOCCAL CONJ. 13-VALENT (PREVNAR 13, PF,) 0.5 ML VACCINE POLYETHYLENE GLYCOL (MIRALAX) 17 GRAM POWDER Take 17 (seventeen) g by mouth daily . RIVAROXABAN (XARELTO) 2.5 MG TABLET Take 1 (one) tablet (2.5 mg total) by mouth 2 (two) times a day . TAMSULOSIN (FLOMAX) 0.4 MG CAPSULE Take 1 (one) capsule (0.4 mg total) by mouth daily . UREA (CARMOL) 40 % CREA ZOLPIDEM (AMBIEN) 10 MG TABLET Take 1 (one) tablet (10 mg total) by mouth nightly as needed . Modified Medications No medications on file Discontinued Medications No medications on file Vital Signs: BP (!) 159/69 (BP Location: Right arm, Patient Position: Sitting) Pulse 78 Temp 97.8 F (36.6 C) (Oral) Resp 18 Ht 6' 2 Wt 113.4 kg (250 lb) SpO2 94% BMI 32.10 kg/m General Appearance: Alert, well appearing, and in no acute distress. HEENT: Head - Normocephalic, atraumatic. Eyes - MAR bilaterally and EOMI. Ears - normal external appearance, hearing intact. Nose - normal, no erythema. Throat - mucous membranes moist, pharynx without lesions. Neck: Supple, trachea midline. No carotid or subclavian bruits. Cardiovascular: S1, S2 normal. No murmurs, rubs, clicks or gallops appreciated. Pluses: 2+ BL radial pulses. 2+ BL femoral and popliteal pulses.Unable to Readily palpate either right or left PT pulses or right DP pulse. Biphasic doppler Signals over BL PT pulses. Doppler signal over right AT. No doppler signal over right PT Respiratory: Lungs clear to auscultation, no wheezes, rales or rhonchi heard. Abdomen: Soft, non-tender, normal bowel sounds, non-distended, no masses or organomegaly appreciated. No aortic or iliac bruits. Neurological: Reduced sensorimotor function, erythema/dependent rubor, and edema of the right foot. Dorsal surface: insensate to until the arch. Plantar surface: insensate from toes to the ankle. Musculoskeletal: No joint tenderness, deformity or swelling. Skin: Normal coloration and turgor. No rashes. See photo Right femoral access site without hematoma Psych: Alert, oriented x 3. Normal mood and affect. No results found for: CHOL , LDLCALC , LDLDIRECT , TRIG , HDL Serum creatinine: 1.12 mg/dL 03/14/25 1128 Estimated creatinine clearance: 55 mL/min Thank you for allowing me to participate in Tristin Powell's care. Should you have any questions regarding their management please do not hesitate to contact me, my mobile number is [phone]. Respectfully, Demetrice Martinez APRN [facility] [1] Social History Tobacco Use Smoking Status Never Smokeless Tobacco Never Cosigned by Ben Hahn MD at 03/14/2025 4:44 PM EDT Associated attestation - Ben Hahn MD - 03/14/2025 4:44 PM EDT Interventional & Peripheral Vascular Cardiology Tristin Powell is a 85 y.o. male with a past medical history significant for CAD with prior CABG, hypertension, stage III CKD, hyperlipidemia, heart failure with preserved ejection fraction, paroxysmal atrial fibrillation, and advanced PAD who presents with Deann 4 critical limb threatening ischemia of the right lower extremity. I met the patient back in 2018 when he presented with left lower extremity pain with a known occlusion of his left SFA and popliteal artery. At that time he was referred for femoral-tibial bypass but unfortunately ultimately required a left transmetatarsal amputation which healed. He was known to have a total occlusion of his right popliteal artery at that time but unfortunately over the past 3 to 4 weeks, and even more intensely over the past 4 to 5 days he describes right lower extremity pain at rest. He underwent angiography 2 days ago in [place] where he was found to have progressive disease in his distal SFA and a known occlusion of his mid right popliteal artery with reconstitution of the peroneal vessel only. The SFA underwent balloon angioplasty to improve geniculate blood flow but unfortunately he remains extremely ischemic. His YAMILE 0.5 on the right lower extremity with flat transmetatarsal and toe waveforms. Past Medical History: Diagnosis Date Arthritis Avascular necrosis of bone of hip ([facility]) Claudication COPD (chronic obstructive pulmonary disease) ([facility]) Coronary artery disease Herpes zoster Hyperlipidemia Hypertension PAD (peripheral artery disease) ([facility]) 01/21/2022 Posterior tibial tendinitis of right leg 11/07/2022 Prostate cancer ([facility]) Vascular disease Allergies: Doxycycline and Gabapentin Current Medications[1] A&O x 3 NAD RRR no m/r/g CTAB S/NT/ND +BS Absent pedal pulses right lower extremity, ruborous and ischemic appearance, diminished sensation to touch but still with normal motor function ECG: Pending Outside angiogram: Reviewed by me, there is severe distal right SFA disease that was treated with angioplasty appropriately. The P2 segment of the popliteal artery is occluded which is chronic and there is faint reconstitution of the peroneal artery in the distal posterior tibial artery as it enters the foot. Impression: Atkinson 4 critical limb threatening ischemia Advanced peripheral artery disease Stage III CKD, stable Plan: I have reviewed his angiogram and YAMILE with our vascular team. Frankly, he has extremely poor options from the endovascular standpoint, and possibly even worse options surgically. The patient is already undergone minor amputation of the left lower extremity but unfortunately is clearly looking at major amputation of the right lower extremity without improvement in blood flow. He has a known thrombosed popliteal artery aneurysm which in 2021 by CTA appears to be around 10 to 12 mm in diameter. We discussed potential heroic attempt at revascularization which would almost certainly require direct access of the peroneal artery and retrograde wiring of his occluded popliteal artery. There is clearly a size discrepancy in the long-term durability is likely to be poor. All of this was discussed at length with the patient. He understands very well the generally poor options that we have before us. For now we will plan on bringing him into the hospital for admission and better pain control Continue unfractionated heparin for his paroxysmal atrial fibrillation We will discuss attempted revascularization early next week and further discussion with our vascular surgery colleagues I personally performed a [id number] diagnostic evaluation on this patient on the same calendar day as the YUE's evaluation (or within 24 hours of a resident's evaluation). I agree with the care plan documented by the YUE/resident with the following additions/comments provided above. Additionally, I have reviewed all relevant labs and studies related to this patient and provided my own interpretation of the relevant studies in my note above. Admitted with these risk variables:Chronic Kidney Disease. Please see assessment and plan for further details. [1] Current Facility-Administered Medications Medication Dose Route Frequency Provider Last Rate Last Admin acetaminophen (TYLENOL) tablet 650 mg 650 mg Oral Q4H While awake Muna Otto MD 650 mg at 03/14/25 1456 HYDROmorphone (DILAUDID) injection 0.5 mg 0.5 mg Intravenous Q3H PRN Muna Otto MD naloxone (NARCAN) injection 0.1 mg 0.1 mg Intravenous PRN Muna Otto MD And naloxone (NARCAN) injection 0.4 mg 0.4 mg Intravenous PRN Fam, Muna Bhatti MD ondansetron (ZOFRAN) injection 4 mg 4 mg Intravenous Q6H PRN Muna Otto MD oxyCODONE-acetaminophen (PERCOCET) 5-325 mg per tablet 1 tablet 1 tablet Oral Q6H PRN Muna Otto MD sodium chloride (PF) (NS) flush 5 mL 5 mL Intravenous PRN Dashawn Stallings PA-C And sodium chloride 0.9% (NS) 0-150 mL/hr Intravenous PRN Dashawn Stallings PA-C Current Outpatient Medications Medication Sig Dispense Refill albuterol 90 mcg/actuation inhaler Inhale 2 (two) puffs every 4 (four) hours as needed for wheezing, shortness of breath or cough . 54 g 3 aspirin 81 mg cap Take 1 (one) capsule (81 mg total) by mouth daily . atorvastatin (LIPITOR) 80 MG tablet Take 0.5 (one-half) tablet (40 mg total) by mouth 2 (two) times a day 1/2 tab . azelastine (ASTELIN) 137 mcg (0.1 %) nasal spray 1 (one) spray by Each Nare route daily . Calmoseptine 0.44-20.6 % Oint Apply 1 Application topically daily as needed . fluticasone (FLONASE) 50 mcg/actuation nasal spray 2 (two) sprays by Each Nare route daily . 16 g 12 furosemide (LASIX) 20 MG tablet Take 1 (one) tablet (20 mg total) by mouth daily as needed Reasons: visible water retention. losartan (COZAAR) 50 MG tablet Take 1 (one) tablet (50 mg total) by mouth daily . metoprolol tartrate (LOPRESSOR) 50 MG tablet Take 1 (one) tablet (50 mg total) by mouth 2 (two) times a day . omeprazole (PRILOSEC) 20 MG capsule Take 1 (one) capsule (20 mg total) by mouth daily . oxyCODONE-acetaminophen (PERCOCET) 5-325 mg per tablet Take 1 (one) tablet by mouth every 6 (six) hours as needed for pain . polyethylene glycol (MIRALAX) 17 gram powder Take 17 (seventeen) g by mouth daily . rivaroxaban (XARELTO) 2.5 mg tablet Take 1 (one) tablet (2.5 mg total) by mouth 2 (two) times a day . tamsulosin (FLOMAX) 0.4 mg capsule Take 1 (one) capsule (0.4 mg total) by mouth daily . zolpidem (AMBIEN) 10 mg tablet Take 1 (one) tablet (10 mg total) by mouth nightly as needed . albuterol (PROVENTIL) 2.5 mg /3 mL (0.083 %) nebulizer solution Take 3 mL (2.5 mg total) by nebulization every 6 (six) hours as needed for wheezing . 12 mL 2 ipratropium-albuteroL (DUO-NEB) 0.5-2.5 mg/3 ml nebulizer Take 3 mL by nebulization 3 (three) times a day . nitroGLYCERIN (NITROSTAT) 0.[address] 1 tablet as needed by sublingual route. ondansetron (ZOFRAN) 4 MG tablet pneumococcal conj. 13-valent (Prevnar 13, PF,) 0.5 mL vaccine urea (CARMOL) 40 % Crea [facility] 03-14-2025 [facility] 03/14/25 Tristin Powell 1940 [id number] Assessment/Plan: Tristin Powell is a 85 y.o. male with a history of Peripheral Artery Disease s/p Bypass, Afib (Xarelto), Diastolic Heart Failure, Coronary Artery Disease s/p CABG, Hypertension, CKD III, COPD, Prostate Cancer, and Insomnia. Patient had outpatient angiogram 03/12/25 with balloon angioplasty. He presented to [facility] ED on 03/14/2025 from Vascular Surgery clinic with intractable right foot pain. In ED: right YAMILE 0.5; 50-99% stenosis in right mid superficial femoral artery; WBC 3.5. Course prolonged due to need for angiogram and Xarelto washout. Peripheral Artery Disease: Followed by Dr. Beaver ([facility]) and Dr. Sarabia (Vascular Surgery) s/p left femoral to peroneal bypass using contralateral reverse greater saphenous vein and partial left foot amputation (09/07/2018 - Dr. Sarabia). S/p angiogram 03/12/25 (Dr. Beaver) with balloon of SFA. Arterial Duplex 03/14/25: 50-99% stenosis in the right mid superficial femoral artery. ABIs 03/14/25: right YAMILE 0.50; left YAMILE is 0.55; severe small vessel disease in right foot. Continued home aspirin and statin. Held home Xarelto for procedure. Started Plavix. Angiogram planned 03/17/25. Peripheral Vascular Cardiology and Vascular Surgery following. Acute on Chronic Pain Syndrome: with opiate dependence. Reviewed NARx: filled Percocet 5-325mg (#120, 30d supply) last on 02/13/25; continued with additional for acute pain. CAD: Followed by [facility] s/p 3 vessel coronary artery bypass grafting in 2017 and 7 stents. Chronic Diastolic Heart Failure: TTE 04/2024: LVEF 55% grade 1 diastolic dysfunction, moderate aortic regurgitation, moderate mitral regurgitation, mild tricuspid regurgitation. Appeared euvolemic on admission. Continued home losartan and lasix every other day. Paroxysmal Afib: [id number] of 5. Xarelto as above (no indication for edna-procedural bridging with heparin drip). Continued home lopressor. Lymphopenia: Baseline WBC normal. WBC of 3.5 (ANC 1.9k) on 03/14/2025. Coagulopathy: Baseline PT normal. PT 14.6, INR 1.1 on 03/14/2025. CKD IIIa: Baseline SCr ~1.2, SCr 1.1 on 03/14/25. Monitored. Chronic Anemia: baseline Hgb ~11-13. Hgb of 13.2 (MCV 91) on 03/14/25. Insomnia: reviewed NARx report, consistent fills of zolpidem 10mg (#30, 30d supply) with last fill 02/13/25. Continued. Prostate Cancer: s/p brachytherapy, reportedly in remission. COPD: no evidence of acute exacerbation on admit. Reduced Mobility: present prior to admission. PTOT. Class I Obesity: Body mass index is 32.1 kg/m . Recommended lifestyle changes. Code Status: Full - confirmed with patient and son on admit DVT Prophylaxis: Mingo score of 6, lovenox. 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 Estimated discharge date: 03/18/2025 Medically Ready for Discharge: no - needs revascularization plan *Alonzo (son) updated at bedside 03/14/2025 Admitted with these risk variables:Valve Disease, CHF, Coagulation Defect, Chronic Kidney Disease, and Chronic Fatigue/Reduced Mobility . Please see assessment and plan for further details. Chief Complaint: Right-sided foot pain History of Present Illness: For the last year, patient slowing down a little more. Usually does pretty active stuff, able to go out [employer] hunting. In last 1-2 months getting more slow and trouble doing stuff. Had angiogram 03/12/25 but they ran into a bunch of blockages and were unable to intervene. Over last three weeks developed some numbness and burning in his right foot. Pain got severe in last 4-5 days. Pain has plateau now, so bad to the point of tears it's so painful. Pain goes from 4-5 cm above ankle down into right foot. Feels like a softball in the bottom of his foot. Some redness from ankle down. Some blueness to toes. It was purple for last week. Patient's son reports this is very similar to when he last had left foot problems and amputation. Last dose of aspirin was 03/13/25 AM. Last dose of Xarelto was 03/13/25 AM, he was told to stop due to procedure and stopped afterward due to severe pain. He denies chest pressure, abdominal pain, diarrhea/constipation. He had some nausea from pain medication. He has some normal shortness of breath, stable. No fevers/chills. No headache or vision changes. I personally reviewed the following labs: Chem, CBC, LA. Of note, patient is on IV dilaudid which is a high-risk medication and requires careful monitoring and titration. I personally discussed with Juana (Peripheral Vascular Cardiology CABINET INSTALLER) and Dr. Barraza (Vascular Surgery) - likely angiogram on Monday; no surgical intervention. ROS: 10 systems were reviewed and negative, except as noted above. Past Medical, Surgical, Social, Family History: Past Medical History: Diagnosis Date Arthritis Avascular necrosis of bone of hip ([facility]) Claudication COPD (chronic obstructive pulmonary disease) ([facility]) Coronary artery disease Herpes zoster Hyperlipidemia Hypertension PAD (peripheral artery disease) ([facility]) 01/21/2022 Posterior tibial tendinitis of right leg 11/07/2022 Prostate cancer ([facility]) Vascular disease Past Surgical History: Procedure Laterality Date 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/08/2018 Procedure: LEFT MIDFOOT AMPUTATION; Surgeon: Flynn Mann DPM; Location: [facility]; Service: Podiatry ANKLE SURGERY Left BYPASS PERONEAL FEMORAL Right 09/07/2018 Procedure: BYPASS PERONEAL FEMORAL, RIGHT SAPHENOUS VEIN HARVEST, COMPLETION ANGIOGRAM; Surgeon: Mohsen Sarabia MD; Location: [facility]URO OR; Service: Cardiovascular CARDIAC CATHETERIZATION Left 09/05/2018 Procedure: Angio Lower Extremity; Surgeon: Ben Hahn MD; 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; Service: Cardiovascular CARDIAC SURGERY 2017 triple bypass EGD N/A 10/10/2018 Procedure: ESOPHAGOGASTRODUODENOSCOPY; Surgeon: Ben Jensen MD; Location: [facility]; Service: Gastroenterology EYE SURGERY Right 2015 FOOT SURGERY ORTHOPEDIC SURGERY STENT PLACEMENT Social History [1] Family History Problem Relation Age of Onset No Known Problems Mother Heart disease Father Prostate cancer Brother Cancer Paternal Aunt Home Medications: Active Home Medications Medication Sig Take Last Dose On Take Morning of Surgery Comment(s) albuterol (PROVENTIL) 2.5 mg /3 mL (0.083 %) nebulizer solution Take 3 mL (2.5 mg total) by nebulization every 6 (six) hours as needed for wheezing . albuterol 90 mcg/actuation inhaler Inhale 2 (two) puffs every 4 (four) hours as needed for wheezing, shortness of breath or cough . aspirin 81 mg cap Take 1 (one) capsule (81 mg total) by mouth daily . atorvastatin (LIPITOR) 40 MG tablet Take 0.5 (one-half) tablet (20 mg total) by mouth 2 (two) times a day 1/2 tab . Calmoseptine 0.44-20.6 % Oint (Patient not taking: Reported on 03/14/2025) fluticasone (FLONASE) 50 mcg/actuation nasal spray 2 (two) sprays by Each Nare route daily . ipratropium-albuteroL (DUO-NEB) 0.5-2.5 mg/3 ml nebulizer Take 3 mL by nebulization 3 (three) times a day . losartan (COZAAR) 50 MG tablet Take 1 (one) tablet (50 mg total) by mouth daily . metoprolol tartrate (LOPRESSOR) 50 MG tablet Take 1 (one) tablet (50 mg total) by mouth 2 (two) times a day . nitroGLYCERIN (NITROSTAT) 0.[address] 1 tablet as needed by sublingual route. omeprazole (PRILOSEC) 20 MG capsule Take 1 (one) capsule (20 mg total) by mouth daily . ondansetron (ZOFRAN) 4 MG tablet oxyCODONE-acetaminophen (PERCOCET) 5-325 mg per tablet Take 1 (one) tablet by mouth every 6 (six) hours as needed for pain . pneumococcal conj. 13-valent (Prevnar 13, PF,) 0.5 mL vaccine polyethylene glycol (MIRALAX) 17 gram powder Take 17 (seventeen) g by mouth daily . rivaroxaban (XARELTO) 2.5 mg tablet Take 1 (one) tablet (2.5 mg total) by mouth 2 (two) times a day . urea (CARMOL) 40 % Crea zolpidem (AMBIEN) 10 mg tablet Take 1 (one) tablet (10 mg total) by mouth nightly as needed . Physical Exam: BP (!) 159/69 (BP Location: Right arm, Patient Position: Sitting) Pulse 78 Temp 97.8 F (36.6 C) (Oral) Resp 18 Ht 6' 2 Wt 113.4 kg (250 lb) SpO2 94% BMI 32.10 kg/m General: no acute distress Eyes: EOMI, anicteric ENT: neck supple Cardiovascular: Regular rate. Respiratory: Clear to auscultation, symmetric chest rise Gastrointestinal: Soft, non tender, non distended Genitourinary: no suprapubic tenderness Musculoskeletal: No edema Skin: warm, dry Neuro: Alert. Oriented. Moves all extremities. Psych: Mood appropriate. Labs, Imaging, and Studies reviewed: Results from last 7 days Lab Units 03/14/25 1128 WBC K/mcL 3.50* HGB g/dL 13.2* HCT % 39.3* PLT K/mcL 173 Results from last 7 days Lab Units 03/14/25 1128 SODIUM mmol/L 139 POTASSIUM mmol/L 3.8 CHLORIDE mmol/L 102 BICARB mmol/L 25 BUN mg/dL 20 CREATININE mg/dL 1.12 EGFR mL/min/1.73 m2 64 GLUCOSE mg/dL 100* Results from last 7 days Lab Units 03/14/25 1128 INR 1.1 Portions of this note were dictated using dictation software. Attempts were made to proofread however errors might still exist. Please do not hesitate to contact me via the [facility] Directory if any error has made critical portions of the note difficult to interpret. [1] Social History Socioeconomic History Marital status: Tobacco Use Smoking status: Never Smokeless tobacco: Never Vaping Use Vaping status: Never Used Substance and Sexual Activity Alcohol use: Not Currently Drug use: Never Sexual activity: Not Currently Social Drivers of Health Financial Resource Strain: Low Risk (06/21/2024) Received from [facility] Overall Financial Resource Strain (CARDIA) Difficulty of Paying Living Expenses: Not hard at all Food Insecurity: No Food Insecurity (06/21/2024) Received from [facility] Hunger Vital Sign Worried About Running Out of Food in the Last Year: Never true Ran Out of Food in the Last Year: Never true Transportation Needs: No Transportation Needs (06/21/2024) Received from [facility] PRAPARE - Transportation Lack of Transportation (Medical): No Lack of Transportation (Non-Medical): No Physical Activity: Insufficiently Active (06/21/2024) Received from [facility] Exercise Vital Sign Days of Exercise per Week: 7 days Minutes of Exercise per Session: 10 min Stress: No Stress Concern Present (06/21/2024) Received from [facility] Citizen Of [place] of Occupational Health - Occupational Stress Questionnaire Feeling of Stress : Not at all Housing Stability: Low Risk (06/21/2024) Received from [facility] Housing Stability Vital Sign Unable to Pay for Housing in the Last Year: No Number of Times Moved in the Last Year: 0 Homeless in the Last Year: No [facility] 03-14-2025 Note [facility] History and P hysical Note 03/14/25 Tristin Powell 1940 [id number] Assessment/Plan: Tristin Powell is a 85 y.o. male with a history of Peripheral Artery Disease s/p Bypass, Afib (Xarelto), Diastolic Heart Failure, Coronary Artery Disease s/p CABG, Hypertension, CKD III, COPD, Prostate Cancer, and Insomnia. Patient had outpatient angiogram 03/12/25 with balloon angioplasty. He presented to [facility] ED on 03/14/2025 from Vascular Surgery clinic with intractable right foot pain. In ED: right YAMILE 0.5; 50-99% stenosis in right mid superficial femoral artery; WBC 3.5. Course prolonged due to need for angiogram and Xarelto washout. Peripheral Artery Disease: Followed by Dr. Beaver ([facility]) and Dr. Sarabia (Vascular Surgery) s/p left femoral to peroneal bypass using contralateral reverse greater saphenous vein and partial left foot amputation (09/07/2018 - Dr. Sarabia). S/p angiogram 03/12/25 (Dr. Beaver) with balloon of SFA. Arterial Duplex 03/14/25: 50-99% stenosis in the right mid superficial femoral artery. ABIs 03/14/25: right YAMILE 0.50; left YAMILE is 0.55; severe small vessel disease in right foot. Continued home aspirin and statin. Held home Xarelto for procedure. Started Plavix. Angiogram planned 03/17/25. Peripheral Vascular Cardiology and Vascular Surgery following. Acute on Chronic Pain Syndrome: with opiate dependence. Reviewed NARx: filled Percocet 5-325mg (#120, 30d supply) last on 02/13/25; continued with additional for acute pain. CAD: Followed by [facility] s/p 3 vessel coronary artery bypass grafting in 2017 and 7 stents. Chronic Diastolic Heart Failure: TTE 04/2024: LVEF 55% grade 1 diastolic dysfunction, moderate aortic regurgitation, moderate mitral regurgitation, mild tricuspid regurgitation. Appeared euvolemic on admission. Continued home losartan and lasix every other day. Paroxysmal Afib: [id number] of 5. Xarelto as above (no indication for edna-procedural bridging with heparin drip). Continued home lopressor. Lymphopenia: Baseline WBC normal. WBC of 3.5 (ANC 1.9k) on 03/14/2025. Coagulopathy: Baseline PT normal. PT 14.6, INR 1.1 on 03/14/2025. CKD IIIa: Baseline SCr ~1.2, SCr 1.1 on 03/14/25. Monitored. Chronic Anemia: baseline Hgb ~11-13. Hgb of 13.2 (MCV 91) on 03/14/25. Insomnia: reviewed NARx report, consistent fills of zolpidem 10mg (#30, 30d supply) with last fill 02/13/25. Continued. Prostate Cancer: s/p brachytherapy, reportedly in remission. COPD: no evidence of acute exacerbation on admit. Reduced Mobility: present prior to admission. PTOT. Class I Obesity: Body mass index is 32.1 kg/m . Recommended lifestyle changes. Code Status: Full - confirmed with patient and son on admit DVT Prophylaxis: Mingo score of 6, lovenox. 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 Estimated discharge date: 03/18/2025 Medically Ready for Discharge: no - needs revascularization plan *Alonzo (son) updated at bedside 03/14/2025 Admitted with these risk variables:Valve Disease, CHF, Coagulation Defect, Chronic Kidney Disease, and Chronic Fatigue/Reduced Mobility . Please see assessment and plan for further details. Chief Complaint: Right-sided foot pain History of Present Illness: For the last year, patient slowing down a little more. 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 In last 1-2 months getting more slow and trouble doing stuff. Had angiogram 03/12/25 but they ran into a bunch of blockages and were unable to intervene. Over last three weeks developed some numbness and burning in his right foot. Pain got severe in last 4-5 days. Pain has plateau now, so bad to the point of tears it's so painful. Pain goes from 4-5 cm above ankle down into right foot. Feels like a softball in the bottom of his foot. Some redness from ankle down. Some blueness to toes. It was purple for last week. Patient's son reports this is very similar to when he last had left foot problems and amputation. Last dose of aspirin was 03/13/25 AM. Last dose of Xarelto was 03/13/25 AM, he was told to stop due to procedure and stopped afterward due to severe pain. He denies chest pressure, abdominal pain, diarrhea/constipation. He had some nausea from pain medication. He has some normal shortness of breath, stable. No fevers/chills. No headache or vision changes. I personally reviewed the following labs: Chem, CBC, LA. Of note, patient is on IV dilaudid which is a high-risk medication and requires careful monitoring and titration. I personally discussed with Juana (Peripheral Vascular Cardiology CABINET INSTALLER) and Dr. Barraza (Vascular Surgery) - likely angiogram on Monday; no surgical intervention. ROS: 10 systems were reviewed and negative, (more content not included)... [facility] 03-14-2025 Emergency department Note [employer] to write admission orders [id number] [facility] 03-14-2025 Physician Emergency department Note ED PROVIDER NOTE [facility] EMERGENCY DEPARTMENT Patient Name: Tristin Powell Age: 85 y.o. : 1940 ED Visit Date: 03/14/25 Chief Complaint Patient presents with Leg Pain HPI / ROS 85-year-old male with history of peripheral artery disease and other medical problems who underwent bypass perineal femoral right saphenous vein with Dr. Sarabia in 2019 presents to the emergency department with complaints of right leg pain. He reports worsening pain to right lower extremity over the last 3 weeks. He has been taking Percocet with only minimal relief. He states it basically takes the edge off. He states this feels exactly like what went on with his left leg before he ended up requiring a midfoot amputation. He saw vascular surgery in office today and was referred down to the ED and advised to be hospitalized. He states he has been to be taking Xarelto but has only taken 1 dose in the last 3 days. He is also supposed be taking aspirin but admits he has not been taking that the last few days as well. He denies other acute complaints. MDM / ED Course On exam, patient is uncomfortable in appearance. IV was established and blood work sent to the lab. Patient was given Dilaudid for pain. Vascular surgery was consulted-they will come and evaluate the patient and determine whether he needs to be placed on heparin. They request that he be admitted to medical service. Laboratory studies include a chemistry significant only for glucose of 100. INR is 1.1. White count 3.5, hemoglobin 13.2 and platelets 175. ED Course as of 03/14/25 1327 MonMar 14, 2025 1326 Vascular surgery recommended PV cardiology consultation- I spoke with them in consult. They will see patient. [EK] ED Course User Index [EK] Elaine Macdonald MD [facility] Data: I saw and evaluated the patient. I reviewed the chief complaint, triage note, past medical/surgical, family, and social history. Discussed with staff/consultants. Shared decision making utilized. Social determinants of health impacted treatment/disposition. Clinical Impression: 1. Claudication 2. Right leg pain 3. Peripheral artery disease . ED Disposition ED Disposition Hospitalize Condition -- Comment Recommended Level of Care: Med Surg Phone call required?: No Patient's PCP: Flash Lovelace MD Follow-up Information Follow-up information has not been specified. Contact information for after-discharge care Follow-up information has not been specified. Physical Exam Patient Vitals for the past 24 hrs: BP Temp Temp src Pulse Resp SpO2 Height Weight 03/14/25 1110 129/64 97.7 F (36.5 C) Oral 75 16 95 % 6' 2 113.4 kg (250 lb) - Refer to [facility] section above for additional physical exam data. Physical Exam Vitals and nursing note reviewed. Constitutional: General: He is not in acute distress. Appearance: Normal appearance. He is normal weight. He is not ill-appearing or toxic-appearing. HENT: Head: Normocephalic and atraumatic. Musculoskeletal: General: Tenderness present. No swelling or deformity. Comments: AFO in place to left lower extremity. He reports transmetatarsal amputation to that foot. Right lower extremity with nonpalpable DP and PT pulse. I was able to Doppler a PT pulse that was faint. Unable to Doppler DP pulse. Patient with pain from knee down. Sensation diminished consistent with his history of neuropathy. Pulmonary: Effort: Pulmonary effort is normal. Skin: General: Skin is warm. Neurological: General: No focal deficit present. Mental Status: He is alert. Psychiatric: Mood and Affect: Mood normal. Review of Systems - Refer to HPI/ROS section above. - All systems reviewed and negative unless otherwise noted above. Past Medical, Surgical, Family, and Social History: Past Medical History: Diagnosis Date Arthritis Avascular necrosis of bone of hip ([facility]) Claudication COPD (chronic obstructive pulmonary disease) ([facility]) Coronary artery disease Herpes zoster Hyperlipidemia Hypertension PAD (peripheral artery disease) ([facility]) 01/21/2022 Posterior tibial tendinitis of right leg 11/07/2022 Prostate cancer ([facility]) Vascular disease Past Surgical History: Procedure Laterality Date 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/08/2018 Procedure: LEFT MIDFOOT AMPUTATION; Surgeon: Flynn Mann DPM; Location: [facility]; Service: Podiatry ANKLE SURGERY Left BYPASS PERONEAL FEMORAL Right 09/07/2018 Procedure: BYPASS PERONEAL FEMORAL, RIGHT SAPHENOUS VEIN HARVEST, COMPLETION ANGIOGRAM; Surgeon: Mohsen Sarabia MD; Location: [facility]; Service: Cardiovascular CARDIAC CATHETERIZATION Left 09/05/2018 Procedure: Angio Lower Extremity; Surgeon: Ben Hahn MD; 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; Service: Cardiovascular CARDIAC SURGERY 2017 triple bypass EGD N/A 10/10/2018 Procedure: ESOPHAGOGASTRODUODENOSCOPY; Surgeon: Ben Jensen MD; Location: [facility]; Service: Gastroenterology EYE SURGERY Right 2015 FOOT SURGERY ORTHOPEDIC SURGERY STENT PLACEMENT Family History Problem Relation Age of Onset No Known Problems Mother Heart disease Father Prostate cancer Brother Cancer Paternal Aunt Social History [1] Allergies and Medications: Allergies[2] Patient's Medications New Prescriptions No medications on file Previous Medications ALBUTEROL (PROVENTIL) 2.5 MG /3 ML (0.083 %) NEBULIZER SOLUTION Take 3 mL (2.5 mg total) by nebulization every 6 (six) hours as needed for wheezing . ALBUTEROL 90 MCG/ACTUATION INHALER Inhale 2 (two) puffs every 4 (four) hours as needed for wheezing, shortness of breath or cough . ASPIRIN 81 MG CAP Take 1 (one) capsule (81 mg total) by mouth daily . ATORVASTATIN (LIPITOR) 40 MG TABLET Take 0.5 (one-half) tablet (20 mg total) by mouth 2 (two) times a day 08/29 tab . CALMOSEPTINE 0.44-20.6 % OINT FLUTICASONE (FLONASE) 50 MCG/ACTUATION NASAL SPRAY 2 (two) sprays by Each Nare route daily . IPRATROPIUM-ALBUTEROL (DUO-NEB) 0.5-2.5 MG/3 ML NEBULIZER Take 3 mL by nebulization 3 (three) times a day . LOSARTAN (COZAAR) 50 MG TABLET Take 1 (one) tablet (50 mg total) by mouth daily . METOPROLOL TARTRATE (LOPRESSOR) 50 MG TABLET Take 1 (one) tablet (50 mg total) by mouth 2 (two) times a day . NITROGLYCERIN (NITROSTAT) 0.[address] 1 tablet as needed by sublingual route. OMEPRAZOLE (PRILOSEC) 20 MG CAPSULE Take 1 (one) capsule (20 mg total) by mouth daily . ONDANSETRON (ZOFRAN) 4 MG TABLET OXYCODONE-ACETAMINOPHEN (PERCOCET) 5-325 MG PER TABLET Take 1 (one) tablet by mouth every 6 (six) hours as needed for pain . PNEUMOCOCCAL CONJ. 13-VALENT (PREVNAR 13, PF,) 0.5 ML VACCINE POLYETHYLENE GLYCOL (MIRALAX) 17 GRAM POWDER Take 17 (seventeen) g by mouth daily . RIVAROXABAN (XARELTO) 2.5 MG TABLET Take 1 (one) tablet (2.5 mg total) by mouth 2 (two) times a day . UREA (CARMOL) 40 % CREA ZOLPIDEM (AMBIEN) 10 MG TABLET Take 1 (one) tablet (10 mg total) by mouth nightly as needed . Modified Medications No medications on file Discontinued Medications No medications on file Laboratory and Imaging Results (if any during ED visit) Results for orders placed or performed during the hospital encounter of 03/14/25 Chem 7 Result Value Ref Range Sodium 139 135 - 145 mmol/L Potassium 3.8 3.5 - 5.1 mmol/L Chloride 102 98 - 108 mmol/L Bicarbonate 25 21 - 32 mmol/L Anion Gap 16 10 - 20 mmol/L Glucose 100 (H) 65 - 99 mg/dL BUN 20 8 - 25 mg/dL Creatinine 1.12 0.80 - 1.30 mg/dL eGFR 64 >=60 mL/min/1.73 m2 BUN/Creatinine Ratio 17.9 10.0 - 20.0 PT/INR Result Value Ref Range Protime (PT) 14.6 (H) 11.8 - 14.3 seconds INR 1.1 0.8 - 1.1 CBC Auto Differential Result Value Ref Range WBC 3.50 (L) 4.50 - 11.00 K/mcL RBC 4.34 (L) 4.50 - 5.90 M/mcL Hemoglobin 13.2 (L) 13.5 - 17.5 g/dL Hematocrit 39.3 (L) 41.0 - 53.0 % MCV 90.6 80.0 - 100.0 fL MCH 30.4 26.0 - 34.0 pg MCHC 33.6 31.0 - 37.0 g/dL Platelets 173 150 - 400 K/mcL RDW - CV 13.5 11.6 - 14.8 % MPV 9.3 (L) 9.4 - 12.4 fL Neutrophils 54.0 % Lymphocytes 18.6 % Monocytes 23.1 % Eosinophils 3.4 % Basophils 0.6 % IG Percent 0.30 % Neutrophils Abs 1.89 1.70 - 7.00 K/mcL Lymphocytes Abs 0.65 (L) 0.90 - 4.00 K/mcL Monocytes Abs 0.81 0.30 - 0.90 K/mcL Eosinophils Abs 0.12 0.00 - 0.50 K/mcL Basophils Abs 0.02 0.00 - 0.30 K/mcL IG Absolute 0.01 0.00 - 0.30 K/mcL Nucleated RBC 0.0 % Nucleated RBC Abs 0.00 0.00 - 0.00 K/mcL No orders to display (All imaging is interpreted by radiologist) Procedures (if any during ED visit) Procedures -Elaine Macdonald MD 03/14/25 Note: Appropriate PPE utilized throughout this patient's ED course. Also, in an effort to expedite correspondence this note was partially generated by [employer] voice recognition software and is inherently subject to errors including those of syntax and sound-alike substitutions which may escape proofreading. In such instances, original meaning may be extrapolated by contextual derivation. Elaine Macdonald MD 03/14/25 1305 [1] Social History Socioeconomic History Marital status: Tobacco Use Smoking status: Never Smokeless tobacco: Never Vaping Use Vaping status: Never Used Substance and Sexual Activity Alcohol use: Not Currently Drug use: Never Sexual activity: Not Currently Social Drivers of Health Financial Resource Strain: Low Risk (06/21/2024) Received from [facility] Overall Financial Resource Strain (CARDIA) Difficulty of Paying Living Expenses: Not hard at all Food Insecurity: No Food Insecurity (06/21/2024) Received from [facility] Hunger Vital Sign Worried About Running Out of Food in the Last Year: Never true Ran Out of Food in the Last Year: Never true Transportation Needs: No Transportation Needs (06/21/2024) Received from [facility] PRAPARE - Transportation Lack of Transportation (Medical): No Lack of Transportation (Non-Medical): No Physical Activity: Insufficiently Active (06/21/2024) Received from [facility] Exercise Vital Sign Days of Exercise per Week: 7 days Minutes of Exercise per Session: 10 min Stress: No Stress Concern Present (06/21/2024) Received from [facility] Citizen Of [place] of Occupational Health - Occupational Stress Questionnaire Feeling of Stress : Not at all Housing Stability: Low Risk (06/21/2024) Received from [facility] Housing Stability Vital Sign Unable to Pay for Housing in the Last Year: No Number of Times Moved in the Last Year: 0 Homeless in the Last Year: No [2] Allergies Allergen Reactions Doxycycline Elevated blood pressure, GI intolerance/ nausea/vomiting Gabapentin GI Intolerance [facility] 03-14-2025 History of Present illness Narrative STAT Medical Records Release form faxed to [phone]. Fax confirmation received. documented in this encounter [facility] 03-14-2025 Consult note Formatting of th is note is different from the original. VASCULAR SURGERY CONSULT Patient Name: Tristin Powell Reason for Consult: RLE rest pain ASSESSMENT AND PLAN Tristin Powell is a 85 y.o. male with history of arotic stenosis, HTN, dyslipidemia, HFpEF, ascending/thoracic aortic aneurysm (4.[address] dated 04/2024), CAD (NSTEMI; s/p 3v CABG), paroxysmal a.fib, aortic & mitral valve disease, COPD, CKD stage 3, PAD, s/p left fem to peroneal bypass (2018, [facility]), left TMA who presented to [facility] on 03/14/2025 with worsening RLE pain and discoloration. Arterial Duplex (03/14/25): 50-99% stenosis in the right mid SFA YAMILE's (03/14/25): Right YAMILE is 0.50. Left YAMILE is 0.55. CTLI IV Aortic Stenosis -Patient w/ notable history of PAD s/p left fem to peroneal bypass (2018, [facility]) p/w RLE rest pain x 3 days. Work up concerning for SFA stenosis, for which vascular surgery was consulted for. -Patient examined: HDS, AURELIANO, doppler signal present in R PT, foot warm, erythematous and swollen. -Imaging reviewed: As above. Rest of workup still pending. -Labs reviewed: WBC 3.5, Hgb 13.2 -Assessment: Patient's rest pain is likely due to underlying subacute worsening of his underlying PAD. Agree with medical admission, pain control and peripheral cardiology evaluation Plan -Admit to medicine -AC/AP per peripheral cardiology -No urgent surgical intervention indicated at this time -F/u PV cardiology c/s for angio -Vascular surgery will be available as needed -Further plans pending above work up -Discussed with Dr. Sarabia Beena Barraza MD General Surgery Resident, PGY-2 [facility] Please contact surgical editorial intern distribution designer 5PM-6AM and weekends - #[phone] Pager - #[phone] Admitted with these risk variables:None. Please see assessment and plan for further details. HISTORY OF PRESENT ILLNESS Over last three weeks developed some numbness and burning in his right foot, which acutely worsened 5 days ago. It has since been constant, but very severe. Pain located in R foot and ankle. Patient also complains of redness from ankle down and blue/purple color changes in toes. Last dose of aspirin was 03/13/25 AM. Last dose of Xarelto was 03/13/25 AM, he was told to stop due to procedure and stopped afterward due to severe pain. Review of systems otherwise negative unless stated above. PAST MEDICAL, SURGICAL, FAMILY, SOCIAL HISTORY Past Medical History: Diagnosis Date Arthritis Avascular necrosis of bone of hip ([facility]) Claudication COPD (chronic obstructive pulmonary disease) ([facility]) Coronary artery disease Herpes zoster Hyperlipidemia Hypertension PAD (peripheral artery disease) ([facility]) 01/21/2022 Posterior tibial tendinitis of right leg 11/07/2022 Prostate cancer ([facility]) Vascular disease Past Surgical History: Procedure Laterality Date 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/08/2018 Procedure: LEFT MIDFOOT AMPUTATION; Surgeon: Flynn Mann DPM; Location: [facility]; Service: Podiatry ANKLE SURGERY Left BYPASS PERONEAL FEMORAL Right 09/07/2018 Procedure: BYPASS PERONEAL FEMORAL, RIGHT SAPHENOUS VEIN HARVEST, COMPLETION ANGIOGRAM; Surgeon: Mohsen Sarabia MD; Location: [facility]; Service: Cardiovascular CARDIAC CATHETERIZATION Left 09/05/2018 Procedure: Angio Lower Extremity; Surgeon: Ben Hahn MD; 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; Service: Cardiovascular CARDIAC SURGERY 2017 triple bypass EGD N/A 10/10/2018 Procedure: ESOPHAGOGASTRODUODENOSCOPY; Surgeon: Ben Jensen MD; Location: [facility]; Service: Gastroenterology EYE SURGERY Right 2015 FOOT SURGERY ORTHOPEDIC SURGERY STENT PLACEMENT Family History Problem Relation Age of Onset No Known Problems Mother Heart disease Father Prostate cancer Brother Cancer Paternal Aunt Social History [1] PHYSICAL EXAM VITALS BP (!) 159/69 (BP Location: Right arm, Patient Position: Sitting) Pulse 78 Temp 97.8 F (36.6 C) (Oral) Resp 18 Ht 6' 2 Wt 113.4 kg (250 lb) SpO2 94% BMI 32.10 kg/m PHYSICAL EXAM General: Awake and alert, no acute distress Head: Normocephalic, atraumatic Eyes: No scleral icterus, EOM grossly intact Neck: Trachea midline Cardiovascular: Hemodynamically stable, regular rate Pulmonary: Nonlabored breathing, equal chest rise Extremities: LLE with evidence of TMA. RLE foot and distal ankle appear red and swollen. Doppler signal present in PT of LLE. No gangrene. Motor and sensory intact Skin: Dry and intact, no obvious rash Neurological: LUU, no gross focal deficits GI: Abd soft, nondistended. IMAGING/LABS Interval imaging and laboratory results reviewed [1] Social History Socioeconomic History Marital status: Tobacco Use Smoking status: Never Smokeless tobacco: Never Vaping Use Vaping status: Never Used Substance and Sexual Activity Alcohol use: Not Currently Drug use: Never Sexual activity: Not Currently Social Drivers of Health Financial Resource Strain: Low Risk (06/21/2024) Received from [facility] Overall Financial Resource Strain (CARDIA) Difficulty of Paying Living Expenses: Not hard at all Food Insecurity: No Food Insecurity (06/21/2024) Received from [facility] Hunger Vital Sign Worried About Running Out of Food in the Last Year: Never true Ran Out of Food in the Last Year: Never true Transportation Needs: No Transportation Needs (06/21/2024) Received from [facility] PRAPARE - Transportation Lack of Transportation (Medical): No Lack of Transportation (Non-Medical): No Physical Activity: Insufficiently Active (06/21/2024) Received from [facility] Exercise Vital Sign Days of Exercise per Week: 7 days Minutes of Exercise per Session: 10 min Stress: No Stress Concern Present (06/21/2024) Received from [facility] Citizen [place] of Occupational Health - Occupational Stress Questionnaire Feeling of Stress : Not at all Housing Stability: Low Risk (06/21/2024) Received from [facility] Housing Stability Vital Sign Unable to Pay for Housing in the Last Year: No Number of Times Moved in the Last Year: 0 Homeless in the Last Year: No Cosigned by Mohsen Sarabia MD at 03/16/2025 10:33 AM EDT Associated attestation - Mohsen Sarabia MD - 03/16/2025 10:33 AM EDT Patient seen and examined. I have personally reviewed all pertinent labs, radiological studies and records. I have personally examined the patient and agree with resident/ARTIFICIAL FLOWER MAKER/PA assessment and plan with the following additional findings. Pt known to me with CLTI of the RLE with rest pain and early ischemic skin changes. Plan for R fem tib bypass on Monday for limb salvage [facility] 03-14-2025 History of Present illness Narrative Spoke with Edwina from Medical Records from [facility] to obtain RLE Angiogram from 03/12/25. This Nurse was informed that for imaging if daughter is not POA that the patient would need to sign a release form and have the patient's sign it. She explained to this Nurse that the form will be faxed to [phone]. Edwina also informed this Nurse that they will fax the report for the RLE Angiogram once it is signed. This Nurse verbalized understanding and explained to Edwina that our office will reach out to the daughter to have her pickle processor the disc for the imaging of RLE Angiogram. Edwina verbalized understanding. All questions answered. documented in this encounter [facility] 03-14-2025 Emergency department Triage note Images from the original note were not included. Pt presents to ED from OP appointment for concern of small vessel disease in RLE. Please see transfer note below: Ken Johnson CNP Nurse Practitioner Specialty: Cardiothoracic Surgery Progress Notes Sign when Signing Visit Encounter Date: 03/14/2025 Creation Time: 03/14/2025 7:56 AM Sign when Signing Visit Expand All Collapse All Patient Name: Tristin Powell MR #: [id number] Subjective: office nurse received call from daughter who expressed concern about patient losing his foot- he is in dire pain and his toes on his right foot are turning purple. Dr. Sarabia requested US Duplex Arterial RLE and ABIs, and here for office visit today [facility] 03-14-2025 History of Present illness Narrative Patient Name: Tristin Powell MR #: [id number] Subjective: office nurse received call from daughter who expressed concern about patient losing his foot- he is in dire pain and his toes on his right foot are turning purple. Dr. Sarabia requested US Duplex Arterial RLE and ABIs, and here for office visit today Patient with excruciating pain in the right foot/worse in the right great toe. He has taken 2 percocet this am with little relief. Reports that this has been bad for the past 3 weeks. He was seeing Dr. Beaver and had a right angiogram attempted at the [facility] on Monday03/12/2025 but was told they could not complete the test. He had no further information. He was seen by Dr. Sarabia in the past and called the office for further evaluation as the pain was unbearable. He is very concerned since this is the same type of pain he had when he lost partial left foot. Vital Signs last 24 hours: BP (!) 147/90 Pulse 81 Ht 6' 1 Wt 113.4 kg (250 lb) SpO2 93% BMI 32.98 kg/m Surgery: 09/07/[address] Mohsen Sarabia Left femoral to peroneal bypass using contralateral reverse greater saphenous vein. 03/14/2025 Ultrasound duplex arterial leg right * 50-99% stenosis in the right mid superficial femoral artery. * Unable to obtain right external iliac artery images due to bandaging from recent procedure. 03/14/2025: US Doppler ankle/brachial index * Right and left ankle brachial indices indicate moderate peripheral artery disease. Right YAMILE is 0.50. Left YAMILE is 0.55. * Severe small vessel disease at the transmetatarsal level in the right foot. 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 * Right toe PPG waveform is absent. Toe brachial index is 0.0. Plan: Discussed with Dr. Sarabia. She is agreeable to admission due to unrelenting pain that is unrelieved with opiods. Patient is agreeable to admission and further evaluation Will plan for admit to medicine with Vascular team on consult; She will be unavailable next week and patient is aware of this Will attempt to get angiogram from [facility] from 03/12/2025; may need to repeat angiogram Labs: Lab Results Component Value Date HGBA1C 4.7 10/04/2018 HGB 11.5 (L) 11/08/2022 PLT 170 11/08/2022 CREATININE 1.16 11/08/2022 Medications: Outpatient Medications as of 03/14/2025 Medication Sig albuterol (PROVENTIL) 2.5 mg /3 mL (0.083 %) nebulizer solution Take 3 mL (2.5 mg total) by nebulization every 6 (six) hours as needed for wheezing . albuterol 90 mcg/actuation inhaler Inhale 2 (two) puffs every 4 (four) hours as needed for wheezing, shortness of breath or cough . aspirin 81 mg cap Take 1 (one) capsule (81 mg total) by mouth daily . atorvastatin (LIPITOR) 40 MG tablet Take 0.5 (one-half) tablet (20 mg total) by mouth 2 (two) times a day 1/2 tab . fluticasone (FLONASE) 50 mcg/actuation nasal spray 2 (two) sprays by Each Nare route daily . ipratropium-albuteroL (DUO-NEB) 0.5-2.5 mg/3 ml nebulizer Take 3 mL by nebulization 3 (three) times a day . losartan (COZAAR) 50 MG tablet Take 1 (one) tablet (50 mg total) by mouth daily . metoprolol tartrate (LOPRESSOR) 50 MG tablet Take 1 (one) tablet (50 mg total) by mouth 2 (two) times a day . nitroGLYCERIN (NITROSTAT) 0.[address] 1 tablet as needed by sublingual route. omeprazole (PRILOSEC) 20 MG capsule Take 1 (one) capsule (20 mg total) by mouth daily . ondansetron (ZOFRAN) 4 MG tablet oxyCODONE-acetaminophen (PERCOCET) 5-325 mg per tablet Take 1 (one) tablet by mouth every 6 (six) hours as needed for pain . polyethylene glycol (MIRALAX) 17 gram powder Take 17 (seventeen) g by mouth daily . rivaroxaban (XARELTO) 2.5 mg tablet Take 1 (one) tablet (2.5 mg total) by mouth 2 (two) times a day . urea (CARMOL) 40 % Crea zolpidem (AMBIEN) 10 mg tablet Take 1 (one) tablet (10 mg total) by mouth nightly as needed . Calmoseptine 0.44-20.6 % Oint (Patient not taking: Reported on 03/14/2025) pneumococcal conj. 13-valent (Prevnar 13, PF,) 0.5 mL vaccine Physical Examination: Neuro: Alert and oriented, speech clear, no focal deficits noted Pulmonary: unlabored respirations Cardiovascular: Regular rate and rhythm; no murmur noted Pulses: DP- Right - absent PT- Right - weak doppler Abdomen: non-distended Musculoskeletal: No evidence of joint effusions Extremities: right mid foot and toes are fire engine red; very painful to even light touch; difficulty walking due to pain Skin: warm, dry Punctures: post tib dsg removed; intact with no bleeding; right groin dsg intact Ken Johnson CNP 03/14/2025 documented in this encounter [facility] 03-14-2025 Note Patient Name: Tristin Powell MR #: [id number] Subjective: office nurse received call from daughter who expressed concern about patient losing his foot- he is in dire pain and his toes on his right foot are turning purple. Dr. Sarabia requested US Duplex Arterial RLE and ABIs, and here for office visit today Patient with excruciating pain in the right foot/worse in the right great toe. He has taken 2 percocet this am with little relief. Reports that this has been bad for the past 3 weeks. He was seeing Dr. Beaver and had a right angiogram attempted at the [facility] on Monday03/12/2025 but was told they could not complete the test. He had no further information. He was seen by Dr. Sarabia in the past and called the office for further evaluation as the pain was unbearable. He is very concerned since this is the same type of pain he had when he lost partial left foot. Vital Signs last 24 hours: BP (!) 147/90 Pulse 81 Ht 6' 1 Wt 113.4 kg (250 lb) SpO2 93% BMI 32.98 kg/m Surgery: 09/07/[address] Mohsen Sarabia Left femoral to peroneal bypass using contralateral reverse greater saphenous vein. 03/14/2025 Ultrasound duplex arterial leg right * 50-99% stenosis in the right mid superficial femoral artery. * Unable to obtain right external iliac artery images due to bandaging from recent procedure. 03/14/2025: US Doppler ankle/brachial index * Right and left ankle brachial indices indicate moderate peripheral artery disease. Right YAMILE is 0.50. Left YAMILE is 0.55. * Severe small vessel disease at the transmetatarsal level in the right foot. 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 * Right toe PPG waveform is absent. Toe brachial index is 0.0. Plan: Discussed with Dr. Sarabia. She is agreeable to admission due to unrelenting pain that is unrelieved with opiods. Patient is agreeable to admission and further evaluation Will plan for admit to medicine with Vascular team on consult; She will be unavailable next week and patient is aware of this Will attempt to get angiogram from [facility] from 03/12/2025; may need to repeat angiogram Labs: Lab Results Component Value Date HGBA1C 4.7 10/04/2018 HGB 11.5 (L) 11/08/2022 PLT 170 11/08/2022 CREATININE 1.16 11/08/2022 Medications: Outpatient Medications as of 03/14/2025 Medication Sig albuterol (PROVENTIL) 2.5 mg /3 mL (0.083 %) nebulizer solution Take 3 mL (2.5 mg total) by nebulization every 6 (six) hours as needed for wheezing . albuterol 90 mcg/actuation inhaler Inhale 2 (two) puffs every 4 (four) hours as needed for wheezing, shortness of breath or cough . aspirin 81 mg cap Take 1 (one) capsule (81 mg total) by mouth daily . atorvastatin (LIPITOR) 40 MG tablet Take 0.5 (one-half) tablet (20 mg total) by mouth 2 (two) times a day 1/2 tab . fluticasone (FLONASE) 50 mcg/actuation nasal spray 2 (two) sprays by Each Nare route daily . ipratropium-albuteroL (DUO-NEB) 0.5-2.5 mg/3 ml nebulizer Take 3 mL by nebulization 3 (three) times a day . losartan (COZAAR) 50 MG tablet Take 1 (one) tablet (50 mg total) by mouth daily . metoprolol tartrate (LOPRESSOR) 50 MG tablet Take 1 (one) tablet (50 mg total) by mouth 2 (two) times a day . nitroGLYCERIN (NITROSTAT) 0.[address] 1 tablet as needed by sublingual route. omeprazole (PRILOSEC) 20 MG capsule Take 1 (one) capsule (20 mg total) by mouth daily . ondansetron (ZOFRAN) 4 MG tablet oxyCODONE-acetaminophen (PERCOCET) 5-325 mg per tablet Take 1 (one) tablet by mouth every 6 (six) hours as needed for pain . polyethylene glycol (MIRALAX) 17 gram powder Take 17 (seventeen) g by mouth daily . rivaroxaban (XARELTO) 2.5 mg tablet Take 1 (one) tablet (2.5 mg total) by mouth 2 (two) times a day . urea (CARMOL) 40 % Crea zolpidem (AMBIEN) 10 mg tablet Take 1 (one) tablet (10 mg total) by mouth nightly as needed . Calmoseptine 0.44-20.6 % Oint (Patient not taking: Reported on 03/14/2025) pneumococcal conj. 13-valent (Prevnar 13, PF,) 0.5 mL vaccine Physical Examination: Neuro: Alert and oriented, speech clear, no focal deficits noted Pulmonary: unlabored respirations Cardiovascular: Regular rate and rhythm; no murmur noted Pulses: DP- Right - absent PT- Right - weak doppler Abdomen: non-distended Musculoskeletal: No evidence of joint effusions Extremities: right mid foot and toes are fire engine red; very painful to even light touch; difficulty walking due to pain Skin: warm, dry Punctures: post tib dsg removed; intact with no bleeding; right groin dsg intact Ken Johnosn CNP 03/14/2025 AUTHENTICATED BY KEN JOHNSON, ON 03/14/2025 11:47:35 [facility] 03-13-2025 History of Present illness Narrative Received vm from daughter who expressed concern about patient losing his foot. Spoke with daughter and she explained to this Nurse that the patient is in dire pain and his toes on his right foot are turning purple. Patient s/p left femoral to peroneal bypass using contralateral reverse greater saphenous vein on 09/07/[address] Mohsen Sarabia. This Nurse explained to daughter that per Dr. Sarabia patient needs an US Duplex Arterial RLE, ABIs, and to see Ken Johnson CNP. Informed daughter that patient's US Duplex Arterial RLE will be tomorrow at 8 AM with a 7:45 AM arrival time in the [place] on the garden level. His ABIs will follow at 9 AM. Then his office visit with Ken Johnson CNP will be at 10 AM on the 5th floor of the [facility], [address]. Instructions provided for how to get to testing and office visit. Daughter verbalized understanding and expressed appreciation. All questions answered. documented in this encounter [facility] 03-11-2025 Evaluation note Diagnosis Onset Date Resolution Peripheral vascular disease acute March 11, 2025 11:20am [facility] Work Phone: [phone] 114-679106-19-2025 Telephone encounter Note* Telephone Encounter - Megan Douglass - 02/13/2025 3:28 PM EDT zolpidem (Ambien) 10 MG tablet Hydrocodone 5-352 [place] [facility] [id number] Miscellaneous Notes* Telephone Encounter - Megan Douglass - 02/13/2025 3:28 PM EDT zolpidem (Ambien) 10 MG tablet Hydrocodone 5-352 [place] documented in this encounterUniversity [facility] [id number] History of Present illness Narrative* Bhaskar Wilson, [employer] - 01/09/2025 10:30 AM EDT Images from the original note were not included. Subjective Patient ID: Tristin Powell is a 85 y.o. male who presents for No chief complaint on file.. Tristin presents today for urin issues with when he took a water pill and he isn't going the bathroomlike he should be. He his having some Rt side back pain and burning with urination. This has been going on for a week. He also has a few skin spots on his neck and back that will not go away. Saw derm 3 yrs ago. Current Outpatient Medications on File Prior to [...] (50 mg) before bedtime. 180 tablet 3 montelukast (Singulair) 10 MG tablet Take 1 tablet (10 mg) by mouth at bedtime (Patient not taking:Reported on 11/25/2024) 30 tablet 11 nitroglycerin (Nitrostat) 0.[address] 0.4 mg under the tongue every 5 (five) minutes if needed for chest pain. omeprazole (PriLOSEC) [address] capsule Take 1 capsule (20 mg) by mouth Daily 100 capsule 3 oxyCODONE-acetaminophen (Percocet) 5-325 MG tablet Take 1 tablet by mouth every 6 (six) hours if needed for severe pain 120 tablet 0 rivaroxaban (Xarelto) 2.5 MG tablet TAKE 1 TABLET TWICE DAILY 200 tablet 3 zolpidem (Ambien) 10 MG tablet Take 1 tablet (10 mg) by mouth as needed at bedtime for sleep 30 tablet 5 No current facility-administered medications on file prior to visit. I have reviewed and reconciled the history and medication list with the patient today. Allergies Allergen Reactions Doxycycline Unknown Social History Tobacco Use Smoking status: Never Smokeless tobacco: Never Vaping Use Vaping status: Never Used Substance Use Topics Alcohol use: Not Currently Comment: Coffee 1-2 cups per day Drug use: Never Family History Problem Relation Name Age of Onset Stroke Other Family history Past Medical History: Diagnosis Date Ankle fracture, left 2009 Avascular necrosis of bone of hip ([facility]) 09/04/2011 Right hip Right hip CAD (coronary artery disease) ([facility]) 2014 Carotid artery disease ([facility]) Cataract 2014 Cellulitis 01/19/2022 [facility] Cellulitis LLE Colon polyps 2012 Critical lower limb ischemia ([facility]) 09/04/2018 Last Assessment & Plan: Pt s/p LLE angiogram with Dr Hahn who feels that the pt has no further endovascular options. He has consulted Dr. Sarabia for a possible tibial bypass. Pt s/p LLE critical limb ischemia Deann class 4 rest pain with distal discoloration to histoes Gangrene of left foot (CMS/HCC) 10/04/2018 Groin hematoma 2014 RT Femoral groin Hematoma H/O myocardial perfusion scan 07/09/2019 LVEF 56% Myocardial perfusion imaging shows a defect in Apical wall Herpes zoster 09/04/2011 History of being hospitalized 12/06/2020 Strep Pneumonia, Resp. Failure - [facility] History of being hospitalized [place] - [facility] 07/15/2021-07/16/2021 History of coronary angiogram [...] stenosis above the common femoral artery Hypertension (CMS/HCC) Pneumonia of both lungs due to infectious organism 04/09/2023 Preinfarction syndrome (CMS/HCC) 10/2016 Preinfarcation syndrome, CABGx3 Prostate cancer (CMS/HCC) 2009 SOB (shortness of breath) Unstable angina (CMS/HCC) 2014 XR 06/18/2019 XR shows impingement to left shoulder with Osteophyte spur Past Surgical History: Procedure Laterality Date ANGIOPLASTY with stent CARDIAC CATHETERIZATION CARDIAC SURGERY ECHO, Coronary Angiography, Percutaneous balloon angiography stent placement in LT & RT coronary artery CARPAL TUNNEL RELEASE Right 05/2020 CATARACT EXTRACTION W/ INTRAOCULAR LENS IMPLANT 2013 CERVICAL SPINE SURGERY 11/29/2019 julio cason COLONOSCOPY 03/16/2018 incomplete bowel prep Diverticulosis Dr. Rowe at [facility] COLONOSCOPY W/ POLYPECTOMY 2011 CORONARY ARTERY BYPASS GRAFT 11/09/2016 x3 CHAVEZ to diag, SVG to OM1, SVG to PDA CT ANGIOGRAM CHEST 12/17/2016 CT ANGIOGRAM CHEST 12/17/2016 FEMORAL BYPASS 09/07/2018 Left fem to peroneal bypass Dr. Sarabia FOOT AMPUTATION Left 10/08/2018 mid foot HEART CATH 11/07/2016 Heart Cath. Blockage OTHER SURGICAL HISTORY brachytherapy OTHER SURGICAL HISTORY open reduction internal fixation OTHER SURGICAL HISTORY 08/09/[address] Vogt OTHER SURGICAL HISTORY 04/25/2022 Diagnostic LE catheterization Dr. Hahn CT MEDICATION MANAGEMENT 11/2020 Multi resistant Strep Pneumonia, susceptible Levaquin PROSTATE BIOPSY 2009 TOTAL HIP ARTHROPLASTY 07/15/2021 Direct anterior right total hip arthroplasty, periarticular injection, right hip fluoroscopy XA SPECIAL ANGIOGRAPHY PROCEDURE Bilateral 10/12/2023 Dr. Sanchez Visit Vitals Smoking Status Never Review of Systems Constitutional: Negative. HENT: Negative. Eyes: Negative. Cardiovascular: Negative. Gastrointestinal: Negative. Genitourinary: Positive for decreased urine volume and dysuria. Difficulty starting a stream of urine, abd cramping feeling over bladder Skin: Negative. Neurological: Negative. Psychiatric/Behavioral: Negative. Endocrine: Negative. Allergic/Immunologic: Negative. Objective Physical Exam Vitals reviewed. Constitutional: Appearance: Normal appearance. HENT: Head: Normocephalic and atraumatic. Right Ear: External ear normal. Left Ear: External ear normal. Nose: Nose normal. Mouth/Throat: Pharynx: Oropharynx is clear. Eyes: Conjunctiva/sclera: Conjunctivae normal. Cardiovascular: Rate and Rhythm: Normal rate and regular rhythm. Heart sounds: Normal heart sounds. Pulmonary: Effort: Pulmonary effort is normal. Breath sounds: Normal breath sounds. Abdominal: Palpations: Abdomen is soft. Genitourinary: Comments: No pain or discomfort with palpation over the bladder Musculoskeletal: General: Normal range of motion. Cervical back: Normal range of motion and neck supple. Skin: General: Skin is warm and dry. Neurological: General: No focal deficit present. Mental Status: He is alert and oriented to person, place, and time. Psychiatric: Mood and Affect: Mood normal. Behavior: Behavior normal. Thought Content: Thought content normal. Judgment: Judgment normal. Assessment/Plan 1. Dysuria (Primary) Discussed urinalysis results with the pt today. His urine will be sent for culture. Discussed use of cipro and its most common side effects. He is advised that we may stop this if culture shows negative. He verbalizes understanding today. - ciprofloxacin (Cipro) 500 MG tablet; Take 0.5 tablets (250 mg) by mouth in the morning and 0.5 tablets (250 mg) before bedtime. Do all this for 5 days. Dispense: 5 tablet; Refill: 0 - Urine culture (clean catch); Future - Urine culture (clean catch) 2. History of prostate cancer The pt presents with difficulty starting a stream of urine. He reports taking the lasix in order dean able to go to the bathroom. We discussed his past history of prostate ca and the use of flomax today. He is in agreement with trying and does want to repeat his PSA. He reports that he was being followed per Dr. Gordon in Urology but no longer sees her for this. He had his last level done in 2022.This is reordered today. Ref Range & Units 2 yr ago (10/11/22) 2 yr ago (01/28/22) 3 yr ago (09/28/21) 4 yr ago (12/06/20) 4 yr ago (12/06/20) 4 yr ago (12/06/20) 4 yr ago (12/06/20) 4 yr ago (12/06/20) 4 yr ago (12/06/20) 4 yr ago (12/06/20) 4 yr ago (12/06/20) 4 yr ago (12/06/20) 4 yr ago (12/06/20) PSA <=4.00 <0.13 <0.05 - tamsulosin (Flomax) 0.4 MG 24 hr capsule; Take 1 capsule (0.4 mg) by mouth Daily Dispense: 30 capsule; Refill: 1 - PSA; Future - PSA 3. Urinary hesitancy - tamsulosin (Flomax) 0.4 MG 24 hr capsule; Take 1 capsule (0.4 mg) by mouth Daily Dispense: 30 capsule; Refill: 1 4. Right-sided low back pain without sciatica, unspecified chronicity Discussed urinalysis result with the pt today. His urine will be sent for culture. - POCT Urinalysis dipstick No follow-ups on file. documented in this [facility]05-08-2025 Telephone encounter Note* Telephone Encounter - Megan Douglass - 01/02/2025 10:43 AM EDT oxyCODONE-acetaminophen (Percocet) 5-325 MG tablet [ [place] [facility] [id number] Miscellaneous Notes* Telephone Encounter - Megan Douglass - 01/02/2025 10:43 AM EDT oxyCODONE-acetaminophen (Percocet) 5-325 MG tablet [ [place] documented in this [facility]04-23-2025 NoteUT Cardiology - [facility] Reginaldo Tristin Powell is a 84 y.o. year old male patient being seen for 6 mo follow up CAD, diastolic heart failure, and AAA. No labs or imaging since the last visit in Jun 2024. Continues to take lasix only PRN, which he states not too often - but the RLE has been swollen lately he's noticed. Says his claudication remains unchanged. Denies chest pain. Says sometimes his SOB with ambulation is sometimes good and sometimes bad . Patient Active Problem List Diagnosis Abdominal pain Chest pain Aortic valve regurgitation Mitral valve regurgitation Avascular necrosis of bone of hip (CMS/HCC) Community acquired pneumonia of left lower lobe of lung Contusion Hematoma of arm, left, initial encounter Coronary artery disease involving coronary bypass graft of [place] heart without angina pectoris Coronary artery disease involving [place] coronary artery of [place] heart without angina pectoris Coronary atherosclerosis Critical lower limb ischemia (CMS/HCC) Disorder of lipid metabolism Hypertensive disorder Herpes zoster Cellulitis Heartburn Gangrene of left foot (CMS/HCC) Peripheral arterial occlusive disease Peripheral arterial disease Inguinal pain Intermittent claudication Hypercholesteremia Mixed hyperlipidemia Pure hypercholesterolemia Class 1 obesity with body mass index (BMI) of 31.0 to 31.9 in adult Obesity (BMI 30.0-34.9) Orthopnea Dyspnea Pain of left lower extremity Preinfarction syndrome (CMS/HCC) Prostate cancer (CMS/HCC) S/P total hip arthroplasty Pulmonary nodule S/P transmetatarsal amputation of foot, left (CMS/HCC) Snoring Thoracic aortic aneurysm without rupture Posterior tibial tendinitis of right leg Insomnia Lumbosacral spondylosis without myelopathy AAA (abdominal aortic aneurysm) Acute exacerbation of chronic obstructive pulmonary disease (CMS/HCC) Abnormal radiographic examination Acute on chronic heart failure with preserved ejection fraction (CMS/HCC) Arthritis Asthmatic bronchitis Carotid artery stenosis Cataract 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 Constipation Elevated erythrocyte sedimentation rate Flu vaccine need Impotence of organic origin Left sciatic nerve pain Neuropathy Other chronic pain Paresthesia of skin Paroxysmal atrial fibrillation (CMS/HCC) Phantom limb pain (CMS/HCC) Polymyalgia rheumatica Primary osteoarthritis of right hip Routine general medical examination at health care facility Seasonal allergic rhinitis Sinusitis Stage 3a chronic kidney disease (CMS/HCC) Acute cystitis without hematuria Benign essential hypertension Other thrombophilia NSTEMI (non-ST elevated myocardial infarction) (CMS/HCC) Hx of CABG Coronary artery disease 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 He is a 84 yo man. He has history of CAD s/p multiple stenting in the past, last one in 04/2014 to the distal LAD instent restenosis. He then underwent CABG at [facility] in 2017 (CHAVEZ to diagonal, SVG to first OM, SVG to PDA), PAD s/p left femoral to Peroneal bypass 09/07/18 and s/p left midfoot amputation (2018) on Aspirin and Xarelto, Hypertension, HFpEF, COPD, and AAA. He has history of hypertension and hyperlipidemia on therapy. He did not tolerate ezetimibe in the past. he has history of prostate cancer. I saw him on 10/09/2023 and due to potential upcoming vascular surgery and symptoms of shortness of breath on exertion I ordered a stress test. He did not want to proceed with a stress test. He then developed stabbing chest pain after being stung by a yellow jacket and he went to [facility] for evaluation. He had mildly elevated high-sensitivity troponin. Following that I proceeded with cardiac catheterization on 07/10/2024 that showed stable coronary artery disease appropriate for medical therapy. Few days after the procedure he complained of some chest discomfort and he underwent a limited echocardiogram that showed stable findings. He also underwent blood testing that was nonrevealing outside of some elevation of the CRP and his ESR was normal. Today he reports that he has been doing well since then with no chest discomfort. He has no shortness of breath on exertion. He has mild leg swelling and claudication that are stable. No issues today and he feels good. Cuca (more content not included)...[facility] 11-26-2024 Telephone encounter Note* Telephone Encounter - LEONARDA Villavicencio - 11/26/2024 1:04 PM EDT OARRS reviewed, Rx sent into patient's pharmacy. Albuterol also sent. [facility] [id number] Miscellaneous Notes* Telephone Encounter - LEONARDA Villavicencio - 11/26/2024 1:04 PM EDT OARRS reviewed, Rx sent into patient's pharmacy. Albuterol also sent. * Telephone Encounter - Megan Douglass - 11/26/2024 10:31 AM EDT oxyCODONE-acetaminophen (Percocet) 5-325 MG tablet [place] documented in this encounterUniversity Health [facility] Medical [id number] Telephone encounter Note* Telephone Encounter - Megan Douglass - 11/26/2024 10:31 AM EDT oxyCODONE-acetaminophen (Percocet) 5-325 MG tablet [place] [facility] [id number] History of Present illness Narrative* Elaine Saab LPN - 11/25/2024 9:54 AM EDT Spoke with pt for outreach and to introduce self to pt. Pt given direct number and encouraged to call with any needs or concerns. Pt states doing ok. We talk about past experience of amputation and pt worried d/t right leg having issues. Does have appt with a specialist for this. Pt requests refil on Oxycodone -acet 5-325. [facility] [place] [place]. States all other prescriptions go to [facility] pharmacy. Medications reconciled with pt. Pt also needs refill on albuterol HFA 90 mcg/act inhaler. This is to be sent to [facility]. * LEONARDA Villavicencio - 11/25/2024 9:54 AM EDT Will send meds in for pt. documented in this encounterUniversity Health Truman Medical [id number] Telephone encounter Note* Telephone Encounter - Megan Douglass - 10/21/2024 9:32 AM EST Pt scheduled NOMS [id number] Miscellaneous Notes* Telephone Encounter - Megan Douglass - 10/21/2024 9:32 AM EST Pt scheduled * Telephone Encounter - LEONARDA Villavicencio - 10/18/2024 12:38 PM EST Please help pt get set up with Dr. Lovelace for medication follow up appointment in October. OARRS reviewed, Rx sent into patient's pharmacy. documented in this encounterUniversity Health Truman Medical [id number] Telephone encounter Note* Telephone Encounter - LEONARDA Villavicencio - 10/18/2024 12:38 PM EST Please help pt get set up with Dr. Lovelace for medication follow up appointment in October. OARRS reviewed, Rx sent into patient's pharmacy. [facility] [id number] History of Present illness Narrative* Ludivina Garcia RN - 09/23/2024 1:09 PM EST Spoke with Nurse from Dr. Beaver's office with [facility] and requested reports for ABIs and US Duplex Bypass Graft LLE be faxed to [phone]. Staff verbalized understanding. All questions answered. documented in this [id number] Telephone encounter Note* Telephone Encounter - LEONARDA Villavicencio - 09/13/2024 12:11 PM EST OARRS reviewed, Rx sent into patient's pharmacy. [facility] [id number] Miscellaneous Notes* Telephone Encounter - LEONARDA Villavicencio - 09/13/2024 12:11 PM EST OARRS reviewed, Rx sent into patient's pharmacy. * Telephone Encounter - Cindi Oscar - 09/12/2024 1:32 PM EST oxyCODONE-acetaminophen (Percocet) 5-325 MG tablet to sebastien dougherty documented in this encounterUniversity Health Truman Medical [id number] Telephone encounter Note* Telephone Encounter - Cindi Oscar - 09/12/2024 1:32 PM EST oxyCODONE-acetaminophen (Percocet) 5-325 MG tablet to sebastien sainir [facility] [id number] History of Present illness Narrative* Ludivina Garcia RN - 08/20/2024 12:50 PM EST Lvm for staff at [facility] with Dr. Beaver's office to clarify if patient already completed his ABIs and US Duplex Bypass Graft LLE. Left direct number for call back. documented in this [id number] History of Present illness Narrative* Flash Lovelace MD - 08/12/2024 1:42 PM ESTAssociated Problem(s): Phantom limb pain (CMS/HCC) Pain meds effective * Flash Lovelace MD - 08/12/2024 1:41 PM ESTAssociated Problem(s): Other chronic pain Medication choice and dosage is appropriate for patient's current medical conditions. Patient will continue to be required to be seen in our office at least every three months for monitoring. At eachfollow up visit I will reassess the patient's need for the medication. Patient is to have this medication prescribed only through this office. Failure to follow the rules and regulations will result in tapering and discontinuation of medications if applicable. Patient verbalized understanding. OARRS Report was reviewed for this patient. * Flash Lovelace MD - 08/12/2024 1:30 PM EST Images from the original note were not included. Subjective Patient ID: Tristin Powell is a 84 y.o. male who presents for Hypertension. Saw Dr. Mayberry a week ago Saw Cardiology a week ago Hypertension This is a chronic problem. The current episode started more than 1 year ago. The problem is unchanged. The problem is controlled. Pertinent negatives include no anxiety, blurred vision, chest pain, headaches, orthopnea, PND or shortness of breath. There are no associated agents to hypertension. Risk factors for coronary artery disease include male gender and dyslipidemia. Past treatments include RIO inhibitors and beta blockers. The current treatment provides significant improvement. There are no compliance problems. Hypertensive end- organ damage includes PVD. There is no history of CAD/HI orCVA. There is no history of a hypertension causing med or sleep apnea. Current Outpatient Medications on File Prior to Visit Medication Sig Dispense Refill atorvastatin (Lipitor) 80 MG tablet albuterol HFA 90 mcg/act inhaler Inhale 1 puff every 4 (four) hours if needed for wheezing or shortness of breath 18 g 0 aspirin 81 MG EC tablet Take 81 mg by mouth in the morning. Azelastine HCl 137 MCG/SPRAY solution Administer 1 spray into affected nostril(s) in the morning and 1 spray before bedtime. Do all this for 14 days. 30 mL 0 fluticasone (Flonase) 50 MCG/ACT nasal spray Administer 1 spray into each nostril Daily Shake gently. Before first use, prime pump. After use, clean tip and replace cap. 48 g 3 furosemide (Lasix) 20 MG tablet TAKE 1 TABLET EVERY MORNING (Patient taking differently: Take 20 mgby mouth in the morning. PRN.) 100 tablet 3 ipratropium-albuterol (Duo-Neb) 0.5-2.5 mg/3 mL [...] (50 mg) before bedtime. 180 tablet 3 montelukast (Singulair) 10 MG tablet Take 1 tablet (10 mg) by mouth at bedtime 30 tablet 11 nitroglycerin (Nitrostat) 0.[address] 0.4 mg under the tongue every 5 (five) minutes if needed for chest pain. omeprazole (PriLOSEC) [address] capsule Take 1 capsule (20 mg) by mouth Daily 100 capsule 3 oxyCODONE-acetaminophen (Percocet) 5-325 MG tablet Take 1 tablet by mouth every 6 (six) hours if needed for moderate pain or severe pain 120 tablet 0 rivaroxaban (Xarelto) 2.5 MG tablet TAKE 1 TABLET TWICE DAILY 200 tablet 3 zolpidem (Ambien) 10 MG tablet Take 1 tablet (10 mg) by mouth as needed at bedtime for sleep 30 tablet 5 [DISCONTINUED] atorvastatin (Lipitor) 40 MG tablet TAKE 1 TABLET EVERY DAY 100 tablet 3 [DISCONTINUED] oxyCODONE-acetaminophen (Percocet) 5-325 MG tablet Take 1 tablet by mouth every 6 (six) hours if needed for moderate pain or severe pain 120 tablet 0 No current facility-administered medications on file prior to visit. I have reviewed and reconciled the history and medication list with the patient today. Allergies Allergen Reactions Doxycycline Unknown Social History Tobacco Use Smoking status: Never Smokeless tobacco: Never Substance Use Topics Alcohol use: Not Currently Comment: Coffee 1-2 cups per day Drug use: Never Family History Problem Relation Name Age of Onset Stroke Other Family history Past Medical History: Diagnosis Date Ankle fracture, left 2009 Avascular necrosis of bone of hip ([facility]) 09/04/2011 Right hip Right hip CAD (coronary artery disease) ([facility]) 2013 Carotid artery disease ([facility]) Cataract 2013 Cellulitis 01/19/2022 [facility] Cellulitis LLE Colon polyps 2011 Critical lower limb ischemia ([facility]) 09/04/2018 Last Assessment & Plan: Pt s/p LLE angiogram with Dr Hahn who feels that the pt has no further endovascular options. He has consulted Dr. Sarabia for a possible tibial bypass. Pt s/p LLE critical limb ischemia Deann class 4 rest pain with distal discoloration to histoes Gangrene of left foot ([facility]) 10/04/2018 Groin hematoma 2013 RT Femoral groin Hematoma H/O myocardial perfusion scan 07/09/2019 LVEF 56% Myocardial perfusion imaging shows a defect in Apical wall Herpes zoster 09/04/2011 History of being hospitalized 12/06/2020 Strep Pneumonia, Resp. Failure - [facility] History of being hospitalized [place] - [facility] 07/15/2021-07/16/2021 History of coronary angiogram [...] stenosis above the common femoral artery Hypertension (CMS/HCC) Pneumonia of both lungs due to infectious organism 04/09/2023 Preinfarction syndrome (CMS/HCC) 10/2016 Preinfarcation syndrome, CABGx3 Prostate cancer (CMS/HCC) 2009 SOB (shortness of breath) Unstable angina (CMS/HCC) 2013 XR 06/18/2019 XR shows impingement to left shoulder with Osteophyte spur Past Surgical History: Procedure Laterality Date ANGIOPLASTY with stent CARDIAC CATHETERIZATION CARDIAC SURGERY ECHO, Coronary Angiography, Percutaneous balloon angiography stent placement in LT & RT coronary artery CARPAL TUNNEL RELEASE Right 05/2020 CATARACT EXTRACTION W/ INTRAOCULAR LENS IMPLANT 2014 CERVICAL SPINE SURGERY 11/29/2019 julio cason COLONOSCOPY 03/16/2018 incomplete bowel prep Diverticulosis Dr. Rowe at [facility] COLONOSCOPY W/ POLYPECTOMY 2011 CORONARY ARTERY BYPASS GRAFT 11/09/2016 x3 CHAVEZ to diag, SVG to OM1, SVG to PDA CT ANGIOGRAM CHEST 12/17/2016 CT ANGIOGRAM CHEST 12/17/2016 FEMORAL BYPASS 09/07/2018 Left fem to peroneal bypass Dr. Sarabia FOOT AMPUTATION Left 10/08/2018 mid foot HEART CATH 11/07/2016 Heart Cath. Blockage OTHER SURGICAL HISTORY brachytherapy OTHER SURGICAL HISTORY open reduction internal fixation OTHER SURGICAL HISTORY 08/09/[address] Vogt OTHER SURGICAL HISTORY 04/25/2022 Diagnostic LE catheterization Dr. Hahn CT MEDICATION MANAGEMENT 11/2020 Multi resistant Strep Pneumonia, susceptible Levaquin PROSTATE BIOPSY 2009 TOTAL HIP ARTHROPLASTY 07/15/2021 Direct anterior right total hip arthroplasty, periarticular injection, right hip fluoroscopy XA SPECIAL ANGIOGRAPHY PROCEDURE Bilateral 10/12/2023 Dr. Sanchez Visit Vitals Smoking Status Never Review of Systems Constitutional: Negative for chills and fever. HENT: Positive for sinus pressure and sinus pain. Eyes: Negative for blurred vision. Respiratory: Negative for shortness of breath. Cardiovascular: Negative for chest pain, orthopnea and PND. Neurological: Negative for headaches. Objective Physical Exam Vitals reviewed. Constitutional: Appearance: Normal appearance. HENT: Head: Normocephalic. Cardiovascular: Rate and Rhythm: Normal rate and regular rhythm. Pulses: Normal pulses. Pulmonary: Effort: Pulmonary effort is normal. Breath sounds: Normal breath sounds. Musculoskeletal: Legs: Comments: prosthesis Neurological: General: No focal deficit present. Mental Status: He is alert and oriented to person, place, and time. Psychiatric: Mood and Affect: Mood normal. Assessment/Plan Problem List Items Addressed This Visit Insomnia Relevant Medications zolpidem (Ambien) 10 MG tablet Seasonal allergic rhinitis Relevant Medications Azelastine HCl 137 MCG/SPRAY solution Other Visit Diagnoses Encounter for vaccination Relevant Orders Influenza, high-dose seasonal, quadrivalent, PF (PZK146) (Fluzone High Dose [place] 0.7mL dose) (Completed) No follow-ups on file. documented in this encounterUniversity Health Truman Medical [id number] Telephone encounter Note* Telephone Encounter - Megan Douglass - 08/06/2024 2:54 PM EST oxyCODONE-acetaminophen (Percocet) 5-325 MG tablet zolpidem (Ambien) 10 MG tablet [employer] [facility] [id number] Miscellaneous Notes* Telephone Encounter - Megan Douglass - 08/06/2024 2:54 PM EST oxyCODONE-acetaminophen (Percocet) 5-325 MG tablet zolpidem (Ambien) 10 MG tablet [employer] documented in this encounterUniversity Health Truman Medical [id number] NoteUT Cardiology - [facility] Subjective Tristin Powell is a 84 y.o. year old male patient being seen for follow up heart cath on 07/10/2024. He had labs and limited echo per Raiza Vallejo CNP last week to r/o pericarditis. Patient says chest pain and SOB has resolved. Patient Active Problem List Diagnosis Abdominal pain Chest pain Aortic valve regurgitation Mitral valve regurgitation Avascular necrosis of bone of hip (CMS/HCC) Community acquired pneumonia of left lower lobe of lung Contusion Hematoma of arm, left, initial encounter Coronary artery disease involving coronary bypass graft of [place] heart without angina pectoris Coronary artery disease involving [place] coronary artery of [place] heart without angina pectoris Coronary atherosclerosis Critical lower limb ischemia (CMS/HCC) Disorder of lipid metabolism Hypertensive disorder Herpes zoster Cellulitis Heartburn Gangrene of left foot (CMS/HCC) Peripheral arterial occlusive disease (CMS/HCC) Peripheral arterial disease (CMS/HCC) Inguinal pain Intermittent claudication (CMS/HCC) Hypercholesteremia Mixed hyperlipidemia Pure hypercholesterolemia Class 1 obesity with body mass index (BMI) of 31.0 to 31.9 in adult Obesity (BMI 30.0-34.9) Orthopnea Dyspnea Pain of left lower extremity Preinfarction syndrome (CMS/HCC) Prostate cancer (CMS/HCC) S/P total hip arthroplasty Pulmonary nodule S/P transmetatarsal amputation of foot, left (CMS/HCC) Snoring Thoracic aortic aneurysm without rupture (CMS/HCC) Posterior tibial tendinitis of right leg Insomnia Lumbosacral spondylosis without myelopathy AAA (abdominal aortic aneurysm) (CMS/HCC) Acute exacerbation of chronic obstructive pulmonary disease (CMS/HCC) Abnormal radiographic examination Acute on chronic heart failure with preserved ejection fraction (CMS/HCC) Arthritis Asthmatic bronchitis Carotid artery stenosis Cataract 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 Constipation Elevated erythrocyte sedimentation rate Flu vaccine need Impotence of organic origin Left sciatic nerve pain Neuropathy Other chronic pain Paresthesia of skin Paroxysmal atrial fibrillation (CMS/HCC) Phantom limb pain (CMS/HCC) Polymyalgia rheumatica (CMS/HCC) Primary osteoarthritis of right hip Routine general medical examination at health care facility Seasonal allergic rhinitis Sinusitis Stage 3a chronic kidney disease (CMS/HCC) Acute cystitis without hematuria Benign essential hypertension Other thrombophilia (CMS/HCC) NSTEMI (non-ST elevated myocardial infarction) (CMS/HCC) Hx of CABG Coronary artery disease 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 He is a 84 yo man. He has history of CAD s/p multiple stenting in the past, last one in 04/2014 to the distal LAD instent restenosis. He then underwent CABG at [facility] in 2017 (CHAVEZ to diagonal, SVG to first OM, SVG to PDA), PAD s/p left femoral to Peroneal bypass 09/07/18 and s/p left midfoot amputation (2018) on Aspirin and Xarelto, Hypertension, HFpEF, COPD, and AAA. He has history of hypertension and hyperlipidemia on therapy. He did not tolerate ezetimibe in the past. he has history of prostate cancer. I saw him on 10/09/2023 and due to potential upcoming vascular surgery and symptoms of shortness of breath on exertion I ordered a stress test. He did not want to proceed with a stress test. He then developed stabbing chest pain after being stung by a yellow jacket and he went to [facility] for evaluation. He had mildly elevated high-sensitivity troponin. Following that I proceeded with cardiac catheterization on 07/10/2024 that showed stable coronary artery disease appropriate for medical therapy. Few days after the procedure he complained of some chest discomfort and he underwent a limited echocardiogram that showed stable findings. He also underwent blood testing that was nonrevealing outside of some elevation of the CRP and his ESR was normal. Today he reports that he has been doing well since then with no recurrence of any chest discomfort. He has no shortness of breath on exertion. He has mild leg swelling and claudication that are stable. No issues today and he feels good. Review of Systems Cardiovascular: Positive for claudication and leg swelling. Hematologic/Lymphatic: Bruises/bleeds easily. Musculoskeletal: Positive for arthritis, back pain, joint pain, myalgias and (more content not included)...[facility]11-13-2024 Note Patient: Tirstin Powell Procedure Information Date/Time: 07/10/24929 Procedure: Coronary angiography - PC APPROVED Location: 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 / [facility] (Cath) Providers: Eliezer Carvalho MD Clinical information reviewed: Allergies Meds Physical Exam Airway Mallampati: III TM distance: >3 FB Neck ROM: full Cardiovascular Rhythm: regular Rate: normal Dental Pulmonary Abdominal Anesthesia Plan ASA 3 (Conscious sedation) Anesthetic plan and risks discussed with patient. Use of blood products discussed with patient who. Plan discussed with attending. Additional Equipment [facility]sUnSt[facility]-2024 Telephone encounter Note* Telephone Encounter - LEONARDA Villavicencio - 07/05/2024 9:35 AM EST OARRS reviewed, Rx sent into patient's pharmacy. [facility] [id number] Miscellaneous Notes* Telephone Encounter - LEONARDA Villavicencio - 07/05/2024 9:35 AM EST OARRS reviewed, Rx sent into patient's pharmacy. * Telephone Encounter - Cindi Oscar - 07/05/2024 9:18 AM EST oxyCODONE-acetaminophen (Percocet) 5-325 MG tablet to [employer] documented in this encounterUniversity Health Truman Medical [id number] Telephone encounter Note* Telephone Encounter - Cindi Oscar - 07/05/2024 9:18 AM EST oxyCODONE-acetaminophen (Percocet) 5-325 MG tablet to [employer] [facility] [id number] Telephone encounter Note* Telephone Encounter - Megan Douglass - 06/17/2024 10:04 AM EDT Patient called requesting a zpack due to a cold. He asked something to be sent into [facility] in [place]. [facility] [id number] Miscellaneous Notes* Telephone Encounter - Megan Douglass - 06/17/2024 10:04 AM EDT Patient called requesting a zpack due to a cold. He asked something to be sent into [facility] in [place]. documented in this encounterUniversity Health Truman Medical [id number] NoteUT Cardiology [facility] Reginaldo Tristin Powell is a 84 y.o. year old male patient being seen for 6 mo follow up CAD, PAD, AAA, HTN, and HLD. Had lipid panel Sep, 2023. He is now seeing vascular surgery in [place], Dr. Beaver. Patient Active Problem List Diagnosis Abdominal pain Chest pain Aortic valve regurgitation Mitral valve regurgitation Avascular necrosis of bone of hip (CMS/HCC) Community acquired pneumonia of left lower lobe of lung Contusion Hematoma of arm, left, initial encounter Coronary artery disease involving coronary bypass graft of [place] heart without angina pectoris Coronary artery disease involving [place] coronary artery of [place] heart without angina pectoris Coronary atherosclerosis Critical lower limb ischemia (CMS/HCC) Disorder of lipid metabolism Hypertensive disorder Herpes zoster Cellulitis Heartburn Gangrene of left foot (CMS/HCC) Peripheral arterial occlusive disease (CMS/HCC) Peripheral arterial disease (CMS/HCC) Inguinal pain Intermittent claudication (CMS/HCC) Hypercholesteremia Mixed hyperlipidemia Pure hypercholesterolemia Class 1 obesity with body mass index (BMI) of 31.0 to 31.9 in adult Obesity (BMI 30.0-34.9) Orthopnea Dyspnea Pain of left lower extremity Preinfarction syndrome (CMS/HCC) Prostate cancer (CMS/HCC) S/P total hip arthroplasty Pulmonary nodule S/P transmetatarsal amputation of foot, left (CMS/HCC) Snoring Thoracic aortic aneurysm without rupture (CMS/HCC) Posterior tibial tendinitis of right leg Insomnia Lumbosacral spondylosis without myelopathy AAA (abdominal aortic aneurysm) (CMS/HCC) Acute exacerbation of chronic obstructive pulmonary disease (CMS/HCC) Abnormal radiographic examination Acute on chronic heart failure with preserved ejection fraction (CMS/HCC) Arthritis Asthmatic bronchitis Carotid artery stenosis Cataract 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 Constipation Elevated erythrocyte sedimentation rate Flu vaccine need Impotence of organic origin Left sciatic nerve pain Neuropathy Other chronic pain Paresthesia of skin Paroxysmal atrial fibrillation (CMS/HCC) Phantom limb pain (CMS/HCC) Polymyalgia rheumatica (CMS/HCC) Primary osteoarthritis of right hip Routine general medical examination at health care facility Seasonal allergic rhinitis Sinusitis Stage 3a chronic kidney disease (CMS/HCC) Acute cystitis without hematuria Benign essential hypertension Other thrombophilia (CMS/HCC) Family History Problem Relation Name Age of Onset Coronary artery disease Other Hyperlipidemia Other Hypertension Other Social History Tobacco Use Smoking status: Never Smokeless tobacco: Never Substance Use Topics Alcohol use: Not Currently HPI Mr Powell is seen in follow up. He is a 83 yo man. He has history of CAD s/p multiple stenting in the past, last one in 04/2014 to the distal LAD instent restenosis. He then underwent CABG at [facility] in 2016 (CHAVEZ to diagonal, SVG to first OM, SVG to PDA), PAD s/p left femoral to Peroneal bypass 09/07/18 and s/p left midfoot amputation (2018) on Aspirin and Xarelto, Hypertension, HFpEF, COPD, and AAA. He has history of hypertension and hyperlipidemia on therapy. he has history of prostate cancer. today he is complaining of shortness of breath on exertion, NYHA class II symptoms. In addition he reports having had episodes of chest pain localized to the left side of the chest not related to exertion. In addition he had left shoulder pain as well as right shoulder pain that seems to have been related to upper extremity motion. He denies palpitations, syncope and significant lower extremity edema. His blood pressure is significantly elevated in the office repeated twice. He is possibly planned to undergo lower extremity bypass surgery due to severe peripheral vascular insufficiency. He will be undergoing venous mapping soon. 04/24/2024 His LAM is stable. Denies c/o chest pain. BP at home running 120-140s/60-70s. His vascular surgery was put on hold - he is unsure why. He tried amlodipine 10mg daily. He developed stomach pains and stopped taking and stomach pains resolved. He did not have lexiscan stress test done ordered by Dr. Carvalho as he reports having a bad reaction to his last stress test. We offered a dobutamine stress ECHO that could be done at [facility]. He has not had this done yet as he notes his vascular surgery is on hold at the moment and they are monitoring things. 05/28/2024 Since last seen, pt presented to [facility] with c/o chest pain. He was stung by a yellow jacket. 4 hours later he developed sharp stabbing chest pains that lasted seconds. This happened again 2 hours later. He went to [facility] for further evaluation. He has had no further episodes of chest pain. Review of Systems Cardiovascular (more content not included)...[facility] 05-28-2024 NotePt is here for a follow up after being in [facility]. Pt has HLD, HNT, and CAD. Pt denies chest pain, sob, dizziness. Review of Systems Cardiovascular: Positive for claudication and leg swelling. Respiratory: Positive for wheezing. Hematologic/Lymphatic: Bruises/bleeds easily. Musculoskeletal: Positive for arthritis, back pain, joint pain, myalgias and neck pain. All other systems reviewed and are negative.[facility] 09-24-2024 History of Present illness Narrative* LEONARDA Villavicencio - 05/21/2024 1:00 PM EDT HPI Med Refill Additional comments: Oxycodone Last edited by Wendy Tubbs LPN on 05/21/2024 1:07 PM. Subjective Patient ID: Tristin Powell is a 84 y.o. male who presents for hospital follow up. Flowsheet Row Patient Outreach from 05/16/2024 in [facility] with Mary ISABELLA Hospital Information Discharged To: Home Setting Discharge Hospital [facility] Diagnosis Chest pain, HTN, CAD, paroximal A-Fib Discharge Date 05/14/24 Engagement Call Start Time 920 Admission Date 05/12/24 Medications Discharge medications reviewed and reconciled from hospital? Yes Is the patient having any side effects they believe may be caused by any medication additions or changes? Yes [complaining of headache each night he took the medication.] Does the patient have all medications ordered at discharge? Yes [for now, he does not like having headache after taking the one, he may not continue it.] Is the patient taking all medications as directed (includes completed medication regime)? Yes Appointments Does the patient have a primary care provider? Yes Has the patient kept scheduled appointments due by today? Yes Self Management Patient Teaching Does the patient have access to their discharge instructions? Yes What is the patient's perception of their health status since discharge? Improving Is the patient/caregiver able to teach back the hierarchy of who to call/visit for symptoms/problems? PCP, Specialist, Home Health nurse, Urgent Care, ED, 911 Yes Wrap Up Is the patient/caregiver familiar with Advance Care Planning? Yes Would the patient like more information on Advance Care Planning? No Wrap Up Additional Comments Pt shares he was stung by a yellowjacket and about 4-5 hours after, he had chest pain. After a couple different times of this happening, he decided to go to the ER. At hospital, he had multiple tests done, UA, ECHO, vascular duplex carotid bilateral, CTA abdomen/Pelvis, Chest XR. The CTA did show nodule that suggests repeat CT scan to monitor and I do speak with him about this, he states this happened once before and he went to a lung specialist down in [place] and after the repeat test was told he needed not to come back by the specialist. He shares the medication they gave him to help get his blood pressure better but he has taken it two nights in a row and has had headache and is not really sure he will be continuing it. I let him know after the KWAME is completed that I will be calling him weekly for a month to check in and be sure he is continuing to get better and he is agreeable to this. He shares he does not mind at all. He also comments that he is getting a tooth pulled later today and that when he was a child, his dad was stung by a bee and if they would have been half hour longer getting him to the hospital, he would have , that is why he is not convinced the yellow-jacket sting did not have some play in all of this. Call End Time 0945 Pt states he is feeling much better and he thinks the yellowjacket sting is what caused him all theproblems. BP runs 120-140 for systolic at home. BP is better when he eats plenty of vegetables. Current Outpatient Medications on File Prior to Visit Medication Sig Dispense Refill albuterol HFA 90 mcg/act inhaler Inhale 1 puff every 4 (four) hours if needed for wheezing or shortness of breath 18 g 0 aspirin 81 MG EC tablet Take 81 mg by mouth in the morning. atorvastatin (Lipitor) 40 MG tablet TAKE 1 TABLET EVERY DAY 100 tablet 3 furosemide (Lasix) 20 MG tablet TAKE 1 TABLET EVERY MORNING (Patient taking differently: Take 20 mgby mouth in the morning. PRN.) 100 tablet 3 ipratropium-albuterol (Duo-Neb) 0.5-2.5 mg/3 mL nebulizer solution Take 3 mL by nebulization in themorning and 3 mL in the evening and 3 mL before bedtime. losartan (Cozaar) 50 MG tablet TAKE 1 TABLET EVERY DAY 100 tablet 3 Menthol-Zinc Oxide (Calmoseptine) 0.44-20.6 % ointment Apply 1 Application topically every 6 (six) hours if needed (Barrier Cream) 100 g 3 metoprolol tartrate (Lopressor) 50 MG tablet Take 1 tablet (50 mg) by mouth in the morning and 1 tablet (50 mg) before bedtime. 720 tablet 0 montelukast (Singulair) 10 MG tablet Take 1 tablet (10 mg) by mouth at bedtime 30 tablet 11 nitroglycerin (Nitrostat) 0.[address] 0.4 mg under the tongue every 5 (five) minutes if needed for chest pain. omeprazole (PriLOSEC) [address] capsule Take 1 capsule (20 mg) by mouth Daily 100 capsule 3 rivaroxaban (Xarelto) 2.5 MG tablet TAKE 1 TABLET TWICE DAILY 200 tablet 3 zolpidem (Ambien) 10 MG tablet Take 1 tablet (10 mg) by mouth as needed at bedtime for sleep 30 tablet 5 [DISCONTINUED] amLODIPine (Norvasc) 5 MG tablet Take 5 mg by mouth in the morning. [DISCONTINUED] ergocalciferol (Vitamin D-2) 1.25 MG (49336 UT) capsule Take 50,000 Units by mouth every 7 (seven) days. [DISCONTINUED] fluticasone (Flonase) 50 MCG/ACT nasal spray USE 1 SPRAY IN EACH NOSTRIL EVERY MORNING 32 g 3 [DISCONTINUED] isosorbide mononitrate ER (Imdur) 30 MG 24 hr tablet Take 1 tablet by mouth Daily [DISCONTINUED] oxyCODONE-acetaminophen (Percocet) 5-325 MG tablet Take 1 tablet by mouth every 6 (six) hours if needed for moderate pain or severe pain 120 tablet 0 No current facility-administered medications on file prior to visit. I have reviewed and reconciled the history and medication list with the patient today. Allergies Allergen Reactions Doxycycline Unknown Social History Tobacco Use Smoking status: Never Substance Use Topics Alcohol use: Not Currently Comment: Coffee 1-2 cups per day Drug use: Never Family History Problem Relation Name Age of Onset Stroke Other Family history Past Medical History: Diagnosis Date Ankle fracture, left 2008 Avascular necrosis of bone of hip ([facility]) 09/04/2011 Right hip Right hip CAD (coronary artery disease) ([facility]) 2013 Carotid artery disease ([facility]) Cataract 2014 Cellulitis 01/19/2022 [facility] Cellulitis LLE Colon polyps 2012 Critical lower limb ischemia ([facility]) 09/04/2018 Last Assessment & Plan: Pt s/p LLE angiogram with Dr Hahn who feels that the pt has no further endovascular options. He has consulted Dr. Sarabia for a possible tibial bypass. Pt s/p LLE critical limb ischemia Atkinson class 4 rest pain with distal discoloration to histoes Gangrene of left foot (CMS/HCC) 10/04/2018 Groin hematoma 2014 RT Femoral groin Hematoma H/O myocardial perfusion scan 07/09/2019 LVEF 56% Myocardial perfusion imaging shows a defect in Apical wall Herpes zoster 09/04/2011 History of being hospitalized 12/06/2020 Strep Pneumonia, Resp. Failure - [facility] History of being hospitalized [place] - [facility] 07/15/2021-07/16/2021 History of coronary angiogram [...] stenosis above the common femoral artery Hypertension (CMS/HCC) Pneumonia of both lungs due to infectious organism 04/09/2023 Preinfarction syndrome (CMS/HCC) 10/2016 Preinfarcation syndrome, CABGx3 Prostate cancer (CMS/HCC) 2009 SOB (shortness of breath) Unstable angina (CMS/HCC) 2014 XR 06/18/2019 XR shows impingement to left shoulder with Osteophyte spur Past Surgical History: Procedure Laterality Date ANGIOPLASTY with stent CARDIAC CATHETERIZATION CARDIAC SURGERY ECHO, Coronary Angiography, Percutaneous balloon angiography stent placement in LT & RT coronary artery CARPAL TUNNEL RELEASE Right 05/2020 CATARACT EXTRACTION W/ INTRAOCULAR LENS IMPLANT 2013 CERVICAL SPINE SURGERY 11/29/2019 julio cason COLONOSCOPY 03/16/2018 incomplete bowel prep Diverticulosis Dr. Rowe at [facility] COLONOSCOPY W/ POLYPECTOMY 2011 CORONARY ARTERY BYPASS GRAFT 11/09/2016 x3 CHAVEZ to diag, SVG to OM1, SVG to PDA CT ANGIOGRAM CHEST 12/17/2016 CT ANGIOGRAM CHEST 12/17/2016 FEMORAL BYPASS 09/07/2018 Left fem to peroneal bypass Dr. Sarabia FOOT AMPUTATION Left 10/08/2018 mid foot HEART CATH 11/07/2016 Heart Cath. Blockage OTHER SURGICAL HISTORY brachytherapy OTHER SURGICAL HISTORY open reduction internal fixation OTHER SURGICAL HISTORY 08/09/[address] Vogt OTHER SURGICAL HISTORY 04/25/2022 Diagnostic LE catheterization Dr. Hahn CT MEDICATION MANAGEMENT 11/2020 Multi resistant Strep Pneumonia, susceptible Levaquin PROSTATE BIOPSY 2010 TOTAL HIP ARTHROPLASTY 07/15/2021 Direct anterior right total hip arthroplasty, periarticular injection, right hip fluoroscopy XA SPECIAL ANGIOGRAPHY PROCEDURE Bilateral 10/12/2023 Dr. Sanchez Visit Vitals BP 152/84 Pulse 80 Resp 16 Ht 6' 2 Wt 244 lb 6.4 oz SpO2 98% BMI 31.38 kg/m Smoking Status Never BSA 2.41 m Review of Systems Constitutional: Negative for chills, fatigue and fever. HENT: Positive for congestion and postnasal drip. Respiratory: Negative for cough, shortness of breath and wheezing. Cardiovascular: Negative for chest pain, palpitations and leg swelling. Gastrointestinal: Negative for abdominal pain, constipation, diarrhea, nausea and vomiting. Skin: Negative for rash. Objective Physical Exam Constitutional: General: He is not in acute distress. Appearance: He is obese. HENT: Head: Normocephalic and atraumatic. Eyes: General: No scleral icterus. Cardiovascular: Rate and Rhythm: Normal rate and regular rhythm. Heart sounds: No murmur heard. Pulmonary: Effort: Pulmonary effort is normal. No respiratory distress. Breath sounds: Normal breath sounds. No wheezing, rhonchi or rales. Musculoskeletal: General: No swelling. Comments: Brace in place on left ankle. S/p partial amputation of left foot Skin: General: Skin is warm and dry. Neurological: General: No focal deficit present. Mental Status: He is alert and oriented to person, place, and time. Psychiatric: Mood and Affect: Mood normal. Behavior: Behavior normal. Assessment/Plan Diagnoses and all orders for this visit: Chest pain in adult Symptoms have resolved. Lumbosacral spondylosis without myelopathy - oxyCODONE-acetaminophen (Percocet) 5-325 MG tablet; Take 1 tablet by mouth every 6 (six) hours ifneeded for moderate pain or severe pain Medication choice and dosage is appropriate for patient's current medical conditions. Patient will continue to be required to be seen in our office at least every three months for monitoring. At eachfollow up visit I will reassess the patient's need for the medication. Patient is to have this medication prescribed only through this office. Failure to follow the rules and regulations will result in tapering and discontinuation of medications if applicable. Patient verbalized understanding. OARRS Report was reviewed for this patient. 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[facility]) The patient is seeing a medical imaging tech for this condition, treatment is deferred to that specialist. Correspondence from that specialist and any available testing were reviewed during today's visit. Seasonal allergic rhinitis due to pollen - fluticasone (Flonase) 50 MCG/ACT nasal spray; Administer 1 spray into each nostril Daily Shake gently. Before first use, prime pump. After use, clean tip and replace cap. - Azelastine HCl 137 MCG/SPRAY solution; Administer 1 spray into affected nostril(s) in the morningand 1 spray before bedtime. Do all this for 14 days. Continue Flonase and Singulair as prescribed. Will add Azelastine nasal spray to see if it will provide additional relief from the PND and congestion. The patient was seen today in follow up of recent hospital stay. All available hospital records were reviewed and discussed with the patient. Hospital discharge meds were reviewed. Any changes are noted above. Follow up for Appointment As Scheduled. documented in this encounterUniversity Health Truman Medical [id number] History of Present illness Narrative* LEONARDA Villavicencio - 04/26/2024 9:30 AM EDT Images from the original note were not included. HPI Med Refill Additional comments: Calmoheptadine, Zolpidem Last edited by Wendy Tubbs LPN on 04/26/2024 9:23 AM. Subjective : Chief Complaint: Tristin Powell is an 84 y.o. male here for an annual wellness visit. I have reviewed and reconciled the history and medication list with the patient today. Current Outpatient Medications on File Prior to Visit Medication Sig Dispense Refill amLODIPine (Norvasc) 5 MG tablet Take 5 mg by mouth in the morning. albuterol HFA 90 mcg/act inhaler Inhale 1 puff every 4 (four) hours if needed for wheezing or shortness of breath 18 g 0 aspirin 81 MG EC tablet Take 81 mg by mouth in the morning. atorvastatin (Lipitor) 40 MG tablet TAKE 1 TABLET EVERY DAY 100 tablet 3 Calmoseptine 0.44-20.6 % ointment ergocalciferol (Vitamin D-2) 1.25 MG (43949 UT) capsule Take 50,000 Units by mouth every 7 (seven) days. fluticasone (Flonase) 50 MCG/ACT nasal spray USE 1 SPRAY IN EACH NOSTRIL EVERY MORNING 32 g 3 furosemide (Lasix) 20 MG tablet TAKE 1 TABLET EVERY MORNING 100 tablet 3 ipratropium-albuterol (Duo-Neb) 0.5-2.5 mg/3 mL nebulizer solution Take 3 mL by nebulization in themorning and 3 mL in the evening and 3 mL before bedtime. losartan (Cozaar) 50 MG tablet TAKE 1 TABLET EVERY DAY 100 tablet 3 metoprolol tartrate (Lopressor) 50 MG tablet Take 1 tablet (50 mg) by mouth in the morning and 1 tablet (50 mg) before bedtime. 720 tablet 0 montelukast (Singulair) 10 MG tablet Take 1 tablet (10 mg) by mouth at bedtime 30 tablet 11 nitroglycerin (Nitrostat) 0.[address] 0.4 mg under the tongue every 5 (five) minutes if needed for chest pain. omeprazole (PriLOSEC) [address] capsule Take 1 capsule (20 mg) by mouth Daily 100 capsule 3 oxyCODONE-acetaminophen (Percocet) 5-325 MG tablet Take 1 tablet by mouth every 6 (six) hours if needed for moderate pain or severe pain 120 tablet 0 rivaroxaban (Xarelto) 2.5 MG tablet TAKE 1 TABLET TWICE DAILY 200 tablet 3 zolpidem (Ambien) 10 MG tablet Take 1 tablet (10 mg) by mouth as needed at bedtime for sleep 30 tablet 0 No current facility-administered medications on file prior to visit. Allergies Allergen Reactions Doxycycline Unknown Social History Tobacco Use Smoking status: Never Substance Use Topics Alcohol use: Not Currently Comment: Coffee 1-2 cups per day Drug use: Never Family History Problem Relation Name Age of Onset Stroke Other Family history Past Medical History: Diagnosis Date Ankle fracture, left 2009 CAD (coronary artery disease) (CMS/HCC) 2013 Carotid artery disease ([facility]) Cataract 2014 Cellulitis 01/19/2022 [facility] Cellulitis LLE Colon polyps 2011 Groin hematoma 2013 RT Femoral groin Hematoma H/O myocardial perfusion scan 07/09/2019 LVEF 56% Myocardial perfusion imaging shows a defect in Apical wall History of being hospitalized 12/06/2020 Strep Pneumonia, Resp. Failure - [facility] History of being hospitalized [place] - [facility] 07/15/2021-07/16/2021 History of coronary angiogram [...] stenosis above the common femoral artery Hypertension (CMS/HCC) Preinfarction syndrome (CMS/HCC) 10/2016 Preinfarcation syndrome, CABGx3 Prostate cancer (CMS/HCC) 2009 SOB (shortness of breath) Unstable angina (CMS/HCC) 2013 XR 06/18/2019 XR shows impingement to left shoulder with Osteophyte spur Past Surgical History: Procedure Laterality Date ANGIOPLASTY with stent CARDIAC CATHETERIZATION CARDIAC SURGERY ECHO, Coronary Angiography, Percutaneous balloon angiography stent placement in LT & RT coronary artery CARPAL TUNNEL RELEASE Right 05/2020 CATARACT EXTRACTION W/ INTRAOCULAR LENS IMPLANT 2014 CERVICAL SPINE SURGERY 11/29/2019 julio cason COLONOSCOPY 03/16/2018 incomplete bowel prep Diverticulosis Dr. Rowe at [facility] COLONOSCOPY W/ POLYPECTOMY 2011 CORONARY ARTERY BYPASS GRAFT 11/09/2016 x3 CHAVEZ to diag, SVG to OM1, SVG to PDA CT ANGIOGRAM CHEST 12/17/2016 CT ANGIOGRAM CHEST 12/17/2016 FEMORAL BYPASS 09/07/2018 Left fem to peroneal bypass Dr. Sarabia FOOT AMPUTATION Left 10/08/2018 mid foot HEART CATH 11/07/2016 Heart Cath. Blockage OTHER SURGICAL HISTORY brachytherapy OTHER SURGICAL HISTORY open reduction internal fixation OTHER SURGICAL HISTORY 08/09/[address] Vogt OTHER SURGICAL HISTORY 04/25/2022 Diagnostic LE catheterization Dr. Hahn CT MEDICATION MANAGEMENT 11/2020 Multi resistant Strep Pneumonia, susceptible Levaquin PROSTATE BIOPSY 2009 TOTAL HIP ARTHROPLASTY 07/15/2021 Direct anterior right total hip arthroplasty, periarticular injection, right hip fluoroscopy XA SPECIAL ANGIOGRAPHY PROCEDURE Bilateral 10/12/2023 Dr. Sanchez Review of Systems Constitutional: Negative for chills, fatigue and fever. HENT: Negative for congestion, ear pain, rhinorrhea, sinus pressure and sore throat. Eyes: Negative for pain, discharge and redness. Respiratory: Positive for wheezing. Negative for cough and shortness of breath. Cardiovascular: Negative for chest pain, palpitations and leg swelling. Gastrointestinal: Negative for abdominal pain, constipation, diarrhea, nausea and vomiting. Genitourinary: Negative for dysuria, frequency and urgency. Musculoskeletal: Positive for arthralgias, back pain, gait problem, myalgias and neck pain. Skin: Negative for rash. Neurological: Negative for dizziness, numbness and headaches. Psychiatric/Behavioral: Negative for confusion, dysphoric mood and sleep disturbance. Hematological: Bruises/bleeds easily. List of current healthcare providers: Patient Care Team: Flash Lovelace MD as PCP - General (Family Medicine) Flash Lovelace MD as PCP - [employer] Annual Visit Over the past 2 weeks, how often have you been bothered by any of the following problems? Little interest or pleasure in doing things: Not at all Feeling down, depressed, or hopeless: Not at all Patient Health Questionnaire-2 Score: 0 Over the past 2 weeks, how often have you been bothered by any of the following problems? Trouble falling or staying asleep, or sleeping too much: Not at all Feeling tired or having little energy: Not at all Poor appetite or overeating: Not at all Feeling bad about yourself - or that you are a failure or have let yourself or your family down: Not at all Trouble concentrating on things, such as reading the newspaper or watching television: Not at all Moving or speaking so slowly that other people could have noticed? Or the opposite - being so fidgety or restless that you have been moving around a lot more than usual.: Not at all Thoughts that you would be better off or hurting yourself in some way: Not at all Patient Health Questionnaire-9 Score: 0 Hawkins Fall Risk History of Falling, Immediate or Within 3 Months: No Health Risk Assessment Form Do you need help eating, bathing, using the toilet, dressing, or getting around your home?: No Can you prepare your own meals?: Yes Can you do your own housework without help?: Yes Can you shop for groceries or clothes without help?: Yes Do you exercise for about 20 minutes 3 or more days a week?: Yes How confident are you that you can control and manage most of your health problems?: Very confident Can you mange your money, credit cards and accounts, pay bills and taxes?: Yes Vision Screening: Yes, no gross abnormalities Hearing Screening: Yes, no gross abnormalities Cognitive Screening Self Assessment: No overt cognitive deficiency is apparent by direct observation Three Word Registration: Leader, Season, Table Clock Drawing: Normal Clock - 2 Three Word Recall: All 3 words correct - 3 Total Score (0-5 Points): 5 Pain Assessment Pain Score: 6 Advance Care Planning Do you have a living will?: Yes Do you have a medical power of deputy attorney general?: Yes Objective : BP 132/82 Pulse 70 Resp 16 Ht 6' 2 Wt 243 lb 3.2 oz SpO2 96% BMI 31.23 kg/m No results found. Physical Exam Constitutional: General: He is not in acute distress. Appearance: He is obese. HENT: Head: Normocephalic and atraumatic. Right Ear: Tympanic membrane and ear canal normal. Left Ear: Tympanic membrane and ear canal normal. Nose: Nose normal. Mouth/Throat: Mouth: Mucous membranes are moist. Pharynx: Oropharynx is clear. Eyes: General: No scleral icterus. Extraocular Movements: Extraocular movements intact. Conjunctiva/sclera: Conjunctivae normal. Pupils: Pupils are equal, round, and reactive to light. Neck: Vascular: No carotid bruit. Cardiovascular: Rate and Rhythm: Normal rate and regular rhythm. Pulses: Normal pulses. Pulmonary: Effort: Pulmonary effort is normal. Breath sounds: Normal breath sounds. No wheezing, rhonchi or rales. Abdominal: General: Bowel sounds are normal. There is no distension. Palpations: Abdomen is soft. Tenderness: There is no abdominal tenderness. There is no guarding. Musculoskeletal: General: Deformity (Arthritic changes noted of multiple joints) present. No swelling, tenderness orsigns of injury. Normal range of motion. Cervical back: Normal range of motion. No tenderness. Comments: H/o left foot amputation with brace in place on left Lymphadenopathy: Cervical: No cervical adenopathy. Skin: General: Skin is warm and dry. Findings: No erythema. Neurological: General: No focal deficit present. Mental Status: He is alert and oriented to person, place, and time. Cranial Nerves: No cranial nerve deficit. Sensory: No sensory deficit. Motor: No weakness. Coordination: Coordination normal. Gait: Gait abnormal. Psychiatric: Mood and Affect: Mood normal. Behavior: Behavior normal. Thought Content: Thought content normal. Judgment: Judgment normal. Assessment/Plan : The following health maintenance schedule was reviewed with the patient and provided in printed form in the after visit summary: Health Maintenance Topic Date Due Influenza Vaccine (1) 04/28/2024 Medicare Annual Wellness (AWV) 06/06/2024 Pneumococcal Vaccine: 65+ Years Completed Advance Care Planning Has ACP in place. 1. Medicare annual wellness visit, subsequent Reviewed all relevant preventative screenings with the patient in detail. Medicare Wellness form completed and will be scanned into patient's chart. All needed testing was ordered. Will continue withyearly Medicare Wellness exams. 2. ACP (advance care planning) Patient willing to discuss ACP. Pt has Living Will and DPOA in place. 3. Primary insomnia Medication choice and dosage is appropriate for patient's current medical conditions. Patient will continue to be required to be seen in our office regularly for monitoring. At each follow up visit Iwill reassess the patient's need for the medication. Patient is to have this medication prescribed only through this office. Failure to follow the rules and regulations will result in tapering and discontinuation of medications if applicable. Patient verbalized understanding. OARRS Report was reviewed for this patient. - zolpidem (Ambien) 10 MG tablet; Take 1 tablet (10 mg) by mouth as needed at bedtime for sleep Dispense: 30 tablet; Refill: 5 4. Neuropathy This is a chronic medical condition that is stable since last assessment. No changes in treatment are suggested at this time. 5. Other chronic pain Medication choice and dosage is appropriate for patient's current medical conditions. Patient will continue to be required to be seen in our office at least every three months for monitoring. At eachfollow up visit I will reassess the patient's need for the medication. Patient is to have this medication prescribed only through this office. Failure to follow the rules and regulations will result in tapering and discontinuation of medications if applicable. Patient verbalized understanding. OARRS Report was reviewed for this patient. 6. Paresthesia of skin This is a chronic medical condition that is stable since last assessment. No changes in treatment are suggested at this time. 7. Phantom limb pain (CMS/HCC) This is a chronic medical condition that is stable since last assessment. No changes in treatment are suggested at this time. 8. Polymyalgia rheumatica (CMS/HCC) This is a chronic medical condition that is stable since last assessment. No changes in treatment are suggested at this time. 9. Mild persistent asthmatic bronchitis without complication (CMS/HCC) This is a chronic medical condition that is stable since last assessment. No changes in treatment are suggested at this time. 10. Chronic bronchitis, unspecified chronic bronchitis type (CMS/HCC) This is a chronic medical condition that is stable since last assessment. No changes in treatment are suggested at this time. 11. Dyspnea on exertion The patient is seeing a medical imaging tech for this condition, treatment is deferred to that specialist. Correspondence from that specialist and any available testing were reviewed during today's visit. 12. Orthopnea The patient is seeing a medical imaging tech for this condition, treatment is deferred to that specialist. Correspondence from that specialist and any available testing were reviewed during today's visit. 13. Snoring This is a chronic medical condition that is stable since last assessment. No changes in treatment are suggested at this time. 14. Solitary pulmonary nodule This is a chronic medical condition that is stable since last assessment. No changes in treatment are suggested at this time. 15. Abdominal aortic aneurysm (AAA) without rupture, unspecified part ([facility]) The patient is seeing a medical imaging tech for this condition, treatment is deferred to that specialist. Correspondence from that specialist and any available testing were reviewed during today's visit. 16. Aortic valve insufficiency, etiology of cardiac valve disease unspecified The patient is seeing a medical imaging tech for this condition, treatment is deferred to that specialist. Correspondence from that specialist and any available testing were reviewed during today's visit. 17. Atherosclerosis of [place] coronary artery of [place] heart without angina pectoris ([facility]) The patient is seeing a medical imaging tech for this condition, treatment is deferred to that specialist. Correspondence from that specialist and any available testing were reviewed during today's visit. 18. Benign essential hypertension ([facility]) Patient's blood pressure is currently well controlled. Continue with current medications and I willcontinue to monitor. 19. Stenosis of right carotid artery The patient is seeing a medical imaging tech for this condition, treatment is deferred to that specialist. Correspondence from that specialist and any available testing were reviewed during today's visit. 20. Chronic heart failure with preserved ejection fraction ([facility]) The patient is seeing a medical imaging tech for this condition, treatment is deferred to that specialist. Correspondence from that specialist and any available testing were reviewed during today's visit. 21. Chronic ischemic heart disease ([facility]) The patient is seeing a medical imaging tech for this condition, treatment is deferred to that specialist. Correspondence from that specialist and any available testing were reviewed during today's visit. 22. Mitral valve insufficiency, unspecified etiology The patient is seeing a medical imaging tech for this condition, treatment is deferred to that specialist. Correspondence from that specialist and any available testing were reviewed during today's visit. 23. Paroxysmal atrial fibrillation ([facility]) The patient is seeing a medical imaging tech for this condition, treatment is deferred to that specialist. Correspondence from that specialist and any available testing were reviewed during today's visit. 24. Preinfarction syndrome ([facility]) The patient is seeing a medical imaging tech for this condition, treatment is deferred to that specialist. Correspondence from that specialist and any available testing were reviewed during today's visit. 25. PVD (peripheral vascular disease) with claudication ([facility]) The patient is seeing a medical imaging tech for this condition, treatment is deferred to that specialist. Correspondence from that specialist and any available testing were reviewed during today's visit. 26. Thoracic aortic aneurysm without rupture, unspecified part ([facility]) The patient is seeing a medical imaging tech for this condition, treatment is deferred to that specialist. Correspondence from that specialist and any available testing were reviewed during today's visit. 27. Heartburn This is a chronic medical condition that is stable since last assessment. No changes in treatment are suggested at this time. 28. Slow transit constipation This is a chronic medical condition that is stable since last assessment. No changes in treatment are suggested at this time. 29. Chronic kidney disease due to hypertension ([facility]) This is a chronic medical condition that is stable since last assessment. No changes in treatment are suggested at this time. 30. Impotence of organic origin This is a chronic medical condition that is stable since last assessment. No changes in treatment are suggested at this time. 31. Malignant neoplasm of prostate ([facility]) The patient is seeing a medical imaging tech for this condition, treatment is deferred to that specialist. Correspondence from that specialist and any available testing were reviewed during today's visit. 32. Stage 3a chronic kidney disease (HCC) ([facility]) This is a chronic medical condition that is stable since last assessment. No changes in treatment are suggested at this time. 33. Arthritis This is a chronic medical condition that is stable since last assessment. No changes in treatment are suggested at this time. 34. Status post total replacement of right hip This is a chronic medical condition that is stable since last assessment. No changes in treatment are suggested at this time. 35. Claudication of right lower extremity ([facility]) The patient is seeing a medical imaging tech for this condition, treatment is deferred to that specialist. Correspondence from that specialist and any available testing were reviewed during today's visit. 36. Lumbosacral spondylosis without myelopathy This is a chronic medical condition that is stable since last assessment. No changes in treatment are suggested at this time. 37. Posterior tibial tendinitis of right leg This is a chronic medical condition that is stable since last assessment. No changes in treatment are suggested at this time. 38. Primary osteoarthritis of right hip This is a chronic medical condition that is stable since last assessment. No changes in treatment are suggested at this time. 39. Class 1 obesity with serious comorbidity and body mass index (BMI) of 31.0 to 31.9 in adult, unspecified obesity type Encouraged portion control, decrease simple sugars and carbohydrates, gradually increase activity level. Aim for gradual steady weight loss. 40. Elevated erythrocyte sedimentation rate This is a chronic medical condition that is stable since last assessment. No changes in treatment are suggested at this time. 41. Other thrombophilia (CMS/HCC) This is a chronic medical condition that is stable since last assessment. No changes in treatment are suggested at this time. 42. Abnormal radiographic examination The patient is seeing a medical imaging tech for this condition, treatment is deferred to that specialist. Correspondence from that specialist and any available testing were reviewed during today's visit. 43. Disorder of lipid metabolism (CMS/HCC) The patient is seeing a medical imaging tech for this condition, treatment is deferred to that specialist. Correspondence from that specialist and any available testing were reviewed during today's visit. 44. Left sciatic nerve pain This is a chronic medical condition that is stable since last assessment. No changes in treatment are suggested at this time. 45. Mixed hyperlipidemia (CMS/HCC) The patient is seeing a medical imaging tech for this condition, treatment is deferred to that specialist. Correspondence from that specialist and any available testing were reviewed during today's visit. 46. Seasonal allergic rhinitis due to pollen This is a chronic medical condition that is stable since last assessment. No changes in treatment are suggested at this time. 47. 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CMS/HCC) This is a chronic medical condition that is stable since last assessment. No changes in treatment are suggested at this time. - Menthol-Zinc Oxide (Calmoseptine) 0.44-20.6 % ointment; Apply 1 Application topically every 6 (six) hours if needed (Barrier Cream) Dispense: 100 g; Refill: 3 48. Atherosclerosis of [place] arteries of extremities with rest pain, unspecified extremity (CMS/HCC) The patient is seeing a medical imaging tech for this condition, treatment is deferred to that specialist. Correspondence from that specialist and any available testing were reviewed during today's visit. 49. Pulmonary hypertension, unspecified (CMS/HCC) The patient is seeing a medical imaging tech for this condition, treatment is deferred to that specialist. Correspondence from that specialist and any available testing were reviewed during today's visit. Follow up in about 3 months (around 07/27/2024) for Medication Follow Up. Electronically signed by LEONARDA Villavicencio on April 26, 2024 documented in this encounterUniversity Health Truman Medical [id number] NotePt is here for a six month follow up. Pt has hyperlipidemia, hypertension, PAD. Pt denies sob, chest pain, palpitations Review of Systems Cardiovascular: Positive for claudication. Respiratory: Positive for wheezing. Hematologic/Lymphatic: Bruises/bleeds easily. Musculoskeletal: Positive for arthritis, back pain, joint pain, myalgias and neck pain. All other systems reviewed and are negative.[facility] 04-24-2024 NoteUT Cardiology - [facility] Subjective Tristin Powell is a 84 y.o. year old male patient being seen for 6 mo follow up CAD, PAD, AAA, HTN, and HLD. Had lipid panel Sep, 2023. He is now seeing vascular surgery in [place], Dr. Beaver. Patient Active Problem List Diagnosis Abdominal pain Chest pain Aortic valve regurgitation Mitral valve regurgitation Avascular necrosis of bone of hip (CMS/HCC) Community acquired pneumonia of left lower lobe of lung Contusion Hematoma of arm, left, initial encounter Coronary artery disease involving coronary bypass graft of [place] heart without angina pectoris Coronary artery disease involving [place] coronary artery of [place] heart without angina pectoris Coronary atherosclerosis Critical lower limb ischemia (CMS/HCC) Disorder of lipid metabolism Hypertensive disorder Herpes zoster Cellulitis Heartburn Gangrene of left foot (CMS/HCC) Peripheral arterial occlusive disease (CMS/HCC) Peripheral arterial disease (CMS/HCC) Inguinal pain Intermittent claudication (CMS/HCC) Hypercholesteremia Mixed hyperlipidemia Pure hypercholesterolemia Class 1 obesity with body mass index (BMI) of 31.0 to 31.9 in adult Obesity (BMI 30.0-34.9) Orthopnea Dyspnea Pain of left lower extremity Preinfarction syndrome (CMS/HCC) Prostate cancer (CMS/HCC) S/P total hip arthroplasty Pulmonary nodule S/P transmetatarsal amputation of foot, left (CMS/HCC) Snoring Thoracic aortic aneurysm without rupture (CMS/HCC) Posterior tibial tendinitis of right leg Insomnia Lumbosacral spondylosis without myelopathy AAA (abdominal aortic aneurysm) (CMS/HCC) Acute exacerbation of chronic obstructive pulmonary disease (CMS/HCC) Abnormal radiographic examination Acute on chronic heart failure with preserved ejection fraction (CMS/HCC) Arthritis Asthmatic bronchitis Carotid artery stenosis Cataract 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 Constipation Elevated erythrocyte sedimentation rate Flu vaccine need Impotence of organic origin Left sciatic nerve pain Neuropathy Other chronic pain Paresthesia of skin Paroxysmal atrial fibrillation (CMS/HCC) Phantom limb pain (CMS/HCC) Polymyalgia rheumatica (CMS/HCC) Primary osteoarthritis of right hip Routine general medical examination at health care facility Seasonal allergic rhinitis Sinusitis Stage 3a chronic kidney disease (CMS/HCC) Acute cystitis without hematuria Benign essential hypertension Other thrombophilia (CMS/HCC) Family History Problem Relation Name Age of Onset Coronary artery disease Other Hyperlipidemia Other Hypertension Other Social History Tobacco Use Smoking status: Never Smokeless tobacco: Never Substance Use Topics Alcohol use: Not Currently HPI Mr Powell is seen in follow up. He is a 83 yo man. He has history of CAD s/p multiple stenting in the past, last one in 04/2014 to the distal LAD instent restenosis. He then underwent CABG at [facility] in 2016 (CHAVEZ to diagonal, SVG to first OM, SVG to PDA), PAD s/p left femoral to Peroneal bypass 09/07/18 and s/p left midfoot amputation (2018) on Aspirin and Xarelto, Hypertension, HFpEF, COPD, and AAA. He has history of hypertension and hyperlipidemia on therapy. he has history of prostate cancer. today he is complaining of shortness of breath on exertion, NYHA class II symptoms. In addition he reports having had episodes of chest pain localized to the left side of the chest not related to exertion. In addition he had left shoulder pain as well as right shoulder pain that seems to have been related to upper extremity motion. He denies palpitations, syncope and significant lower extremity edema. His blood pressure is significantly elevated in the office repeated twice. He is possibly planned to undergo lower extremity bypass surgery due to severe peripheral vascular insufficiency. He will be undergoing venous mapping soon. 04/24/2024 His LAM is stable. Denies c/o chest pain. BP at home running 120-140s/60-70s. His vascular surgery was put on hold - he is unsure why. He tried amlodipine 10mg daily. He developed stomach pains and stopped taking and stomach pains resolved. He did not have lexiscan stress test done ordered by Dr. Carvalho as he reports having a bad reaction to his last stress test. We offered a dobutamine stress ECHO that could be done at [facility]. He has not had this done yet as he notes his vascular surgery is on hold at the moment and they are monitoring things. Review of Systems Cardiovascular: Positive for claudication and leg swelling. Respiratory: Positive for wheezing. Hematologic/Lymphatic: Bruises/bleeds easily. Musculoskeletal: Positive for arthritis, back pain, joint pain, myalgias and neck pain. All other systems reviewed and are negative. Objective Visit Vitals BP 145/69 (BP Location: Right arm (more content not included)...[facility]04-30-2024 Hospital Discharge instructions Patient Education 12/26/2023 13:31:34 Prostate Cancer Prostate Cancer The prostate is a small gland that produces fluid that makes up semen (seminal fluid). It is located below the bladder in men, in front of the rectum. Prostate cancer is the abnormal growth of cells in the prostate gland. What are the causes? The exact cause of this condition is not known. What increases the risk? You are more likely to develop this condition if: You are 65 years of age or older. You have a family history of prostate cancer. You have a family history of breast and ovarian cancer. You have genes that are passed from parent to child (inherited), such as BRCA1 and BRCA2. You have Romero syndrome. men and men of descent are diagnosed with prostate cancer at higher rates than other men. The reasons for this are not well understood and are likely due to a combination of genetic and environmental factors. What are the signs or symptoms? Symptoms of this condition include: Problems with urination. This may include: ?A weak or interrupted flow of urine. ?Trouble starting or stopping urination. ?Trouble emptying the bladder all the way. ?The need to urinate more often, especially at night. Blood in urine or semen. Persistent pain or discomfort in the lower back, lower abdomen, or hips. Trouble getting an erection. Weakness or numbness in the legs or feet. How is this diagnosed? This condition can be diagnosed with: A digital rectal exam. For this exam, a health care provider inserts a gloved finger into the rectum to feel the prostate gland. A blood test called a prostate-specific antigen (PSA) test. A procedure in which a sample of tissue is taken from the prostate and checked under a microscope (prostate biopsy). An imaging test called transrectal ultrasonography. Once the condition is diagnosed, tests will be done to determine how far the cancer has spread. This is called staging the cancer. Staging may involve imaging tests, such as a bone scan, CT scan, PETscan, or MRI. Stages of prostate cancer The stages of prostate cancer are as follows: Stage 1 (I). At this stage, the cancer is found in the prostate only. The cancer is not visible on imaging tests, and it is usually found by accident, such as during prostate surgery. Stage 2 (II). At this stage, the cancer is more advanced than it is in stage 1, but the cancer has not spread outside the prostate. Stage 3 (III). At this stage, the cancer has spread beyond the outer layer of the prostate to nearby tissues. The cancer may be found in the seminal vesicles, which are near the bladder and the prostate. Stage 4 (IV). At this stage, the cancer has spread to other parts of the body, such as the lymph nodes, bones, bladder, rectum, liver, or lungs. Prostate cancer grading Prostate cancer is also graded according to how the cancer cells look under a microscope. This is called the [place] score and the total score can range from 6 10, indicating how likely it is that the cancer will spread (metastasize) to other parts of the body. The higher the score, the greater thelikelihood that the cancer will spread. [place] 6 or lower: This indicates that the cancer cells look similar to normal prostate cells (well differentiated). [place] 7: This indicates that the cancer cells look somewhat similar to normal prostate cells (moderately differentiated). Aleksandr 8, 9, or 10: This indicates that the cancer cells look very different than normal prostate cells (poorly differentiated). How is this treated? Treatment for this condition depends on several factors, including the stage of the cancer, your age, personal preferences, and your overall health. Talk with your health care provider about treatment options that are recommended for you. Common treatments include: Observation for early stage prostate cancer (active surveillance). This involves having exams, blood tests, and in some cases, more biopsies. For some men, this is the only treatment needed. Surgery. Types of surgeries include: ?Open surgery (radical prostatectomy). In this surgery, a larger incision is made to remove the prostate. ?A laparoscopic radical prostatectomy. This is a surgery to remove the prostate and lymph nodes through several small incisions. It is often referred to as a minimally invasive surgery. ?A robotic radical prostatectomy. This is laparoscopic surgery to remove the prostate and lymph nodes with the help of robotic arms that are controlled by the surgeon. ?Cryoablation. This is surgery to freeze and destroy cancer cells. Radiation treatment. Types of radiation treatment include: ?External beam radiation. This type aims beams of radiation from outside the body at the prostate to destroy cancerous cells. ?Brachytherapy. This type uses radioactive needles, seeds, wires, or tubes that are implanted into the prostate gland. Like external beam radiation, brachytherapy destroys cancerous cells. An advantage is that this type of radiation limits the damage to surrounding tissue and has fewer side effects. Chemotherapy. This treatment kills cancer cells or stops them from multiplying. It kills both cancer cells and normal cells. Targeted therapy. This treatment uses medicines to kill cancer cells without damaging normal cells. Hormone treatment. This treatment involves taking medicines that act on testosterone, one of the male hormones, by: ?Stopping your body from producing testosterone. ?Blocking testosterone from reaching cancer cells. Follow these instructions at home: Lifestyle Do not use any products that contain nicotine or tobacco. These products include cigarettes, chewing tobacco, and vaping devices, such as e-cigarettes. If you need help quitting, ask your health careprovider. Eat a healthy diet. To do this: ?Eat foods that are high in fiber. These include beans, whole grains, and fresh fruits and vegetables. ?Limit foods that are high in fat and sugar. These include fried or sweet foods. Treatment for prostate cancer may affect sexual function. If you have a partner, continue to have intimate moments. This may include touching, holding, hugging, and caressing your partner. Get plenty of sleep. Consider joining a support group for men who have prostate cancer. Meeting with a support group mayhelp you learn to manage the stress of having cancer. General instructions Take rmtl-nzi-[id number] and prescription medicines only as told by your health care provider. If you have to go to the hospital, notify your cancer specialist (oncologist). Keep all follow-up visits. This is important. Where to find more information [place] [employer]: www.cancer.org [place] [employer]: www.cancer.net National Cancer [place]: www.cancer.gov Contact a health care provider if: You have new or increasing trouble urinating. You have new or increasing blood in your urine. You have new or increasing pain in your hips, back, or chest. Get help right away if: You have weakness or numbness in your legs. You cannot control urination or your bowel movements (incontinence). You have chills or a fever. Summary The prostate is a small gland that is involved in the production of semen. It is located below a man's bladder, in front of the rectum. Prostate cancer is the abnormal growth of cells in the prostate gland. Treatment for this condition depends on the stage of the cancer, your age, personal preferences, and your overall health. Talk with your health care provider about treatment options that are recommended for you. Consider joining a support group for men who have prostate cancer. Meeting with a support group mayhelp you learn to manage the stress of having cancer. This information is not intended to replace advice given to you by your health care provider. Make sure you discuss any questions you have with your health care provider. Document Revised: 11/10/2021 Document Reviewed: 11/10/2021 [employer] Patient Education 2022 Pocketbook. Follow Up Care 12/20/2022 14:56:06 With:JAY CARRANZA, BRENNA Bazan, URL Address: [address] [place] [address]. [place] [address] Business (1) When: only if needed [facility] 02-06-2024 Evaluation note* Encounter Date Diagnosis Assessment Notes Treatment Notes Treatment Clinical Notes Sep, Peripheral vascular occlusive disease (ICD-10 - I73.9) Sep, Other Peripheral devyn rial occlusive disease with ischemic rest pain right foot We will repeat his diagnostic arteriogram to assess his current anatomy. Previously he did not have good targets for endovascular intervention. Vein mapping will be obtained to look for potential conduit for reconstruction. He understands and is agreement with that plan Path Other 12-14-2023 History of Present illness Narrative* Dahiana Coelho - 08/10/2023 11:40 AM EST Ortho Nurse - Established Patient Intake Room#: 4 Date: 08/10/2023 10:53 AM Patient: Tristin Powell Sr. MR#: [id number] : 1940 Age: 83 y.o. 2yr R SHANNON Pt stated he is doing alright denies any pain at this time. Referring Physician: Self, Self Insurance: Payor: MEDICARE [employer] PPO / Plan: MEDICARE [employer] HMO PPO / Product Type: *No Product type* / Chief Complaint Patient presents with Right Hip - Follow-up Visit Vitals Ht 1.88 m (6' 2 ) Wt 104.3 kg (230 lb) BMI 29.53 kg/m Pain Recent Labs Lab Results Component Value Date CRP 1.39 09/01/2011 Lab Results Component Value Date SEDRATE 4 09/02/2011 Lab Results Component Value Date WBC 10.0 07/16/2021 HGB 11.7 (L) 07/16/2021 HCT 34.2 (L) 07/16/2021 PLATELET 127 (L) 07/16/2021 MCV 91.6 07/16/2021 History Past Medical History: Diagnosis Date Arthritis CAD (coronary artery disease) 3 stents placed COPD (chronic obstructive pulmonary disease) Essential hypertension, benign GERD (gastroesophageal reflux disease) Hyperlipidemia Prostate cancer Vascular disease Past Surgical History: Procedure Laterality Date ARTHROPLASTY HIP TOTAL ANTERIOR APPROACH Right 07/15/2021 Laterality: Right; Surgeon: Dashawn Silvestre MD; Location: [facility] PERIPHERAL ANGIOPLASTY N/A 08/09/2018 Laterality: N/A; Surgeon: Isaias Vogt MD; Location: [facility] PERIPHERAL STENT PLACEMENT N/A 08/09/2018 Laterality: N/A; Surgeon: Isaias Vogt MD; Location: [facility] ATHERECTOMY PERIPHERAL N/A 08/09/2018 Laterality: N/A; Surgeon: Isaias Vogt MD; Location: [facility] CORONARY STENT PLACEMENT 2007 x3 total of 7 AMPUTATION front of left toes ANKLE FRACTURE SURGERY Left plate placed in L ankle CORONARY ARTERY BYPASS GRAFT 3 vessel RADIO/SURGICAL IMPLANT INDEX jul 2010-november 2010 radioactive seeds implanted prostate Family History: His family history includes Coronary Artery Disease in his maternal grandmother, paternal aunt, paternal grandmother, and paternal uncle; Diabetes in his mother; Myocardial Infarctionin his father and mother; No known problems in his daughter, sister, and son; Prostate Cancer in his brother. Social History: His reports that he has never smoked. He has never used smokeless tobacco. He reports that he does not drink alcohol and does not use drugs. Outpatient Medications Prior to Visit Medication Sig Dispense Refill acetaminophen 325 MG tablet Take 2 tablets by mouth every 4 hours as needed for Mild Pain. 50 tablet 1 albuterol (2.5 MG/3ML) 0.083% inhalation solution albuterol sulfate 2.5 mg/3 mL (0.083 %) solution for nebulization ASPIRIN 81 PO Take 81 mg by mouth. atorvastatin 40 MG Tab tablet Take 1 tablet by mouth 2 times daily. Takes 1/2 tab bid gabapentin 100 MG Cap capsule Take 3 capsules by mouth 3 times daily. losartan 50 MG tablet Take 0.5 tablets by mouth daily. metoprolol succinate 50 MG PO tablet XL Take 1 tablet by mouth 2 times daily. polyethylene glycol PO PACK take 1 Packet by mouth 2 times daily. 60 Packet 5 Rivaroxaban 20 MG tablet Take 2.5 mg by mouth 2 times daily. Start in 22 days after the 15mg dose is completed senna 8.6 MG PO TABS take 1 Tab by mouth daily. 30 Tab 5 therapeutic multivitamin-minerals tablet Take 1 tablet by mouth at bedtime. 30 tablet 0 zolpidem 5 MG tablet Take 2 tablets by mouth At bedtime as needed for Sleep. celecoxib 200 MG capsule Take 1 capsule by mouth 2 times daily. (Patient not taking: Reported on 01/12/2022) 60 capsule 0 docusate 100 MG capsule Take 1 capsule by mouth 2 times daily. (Patient not taking: Reported on 01/12/2022) 60 capsule 0 methylPREDNIsolone 4 MG Tab Therapy Pack tablet Take 1 tablet by mouth As directed. follow package directions (Patient not taking: Reported on 01/12/2022) 21 tablet 0 omeprazole [address] capsule Take 1 capsule by mouth daily. (Patient not taking: Reported on 01/12/2022) 30 capsule 0 oxyCODONE 5 MG tablet Take 1-2 tabs po q 4-6 hours PRN pain. Wean as tolerated. 40 tablet 0 No facility-administered medications prior to visit. Current Outpatient Medications: acetaminophen 325 MG tablet, Take 2 tablets by mouth every 4 hours as needed for Mild Pain., Disp: 50 tablet, Rfl: 1 albuterol (2.5 MG/3ML) 0.083% inhalation solution, albuterol sulfate 2.5 mg/3 mL (0.083 %) solutionfor nebulization, Disp: , Rfl: ASPIRIN 81 PO, Take 81 mg by mouth., Disp: , Rfl: atorvastatin 40 MG Tab tablet, Take 1 tablet by mouth 2 times daily. Takes 1/2 tab bid, Disp: , Rfl: gabapentin 100 MG Cap capsule, Take 3 capsules by mouth 3 times daily., Disp: , Rfl: losartan 50 MG tablet, Take 0.5 tablets by mouth daily., Disp: , Rfl: metoprolol succinate 50 MG PO tablet XL, Take 1 tablet by mouth 2 times daily., Disp: , Rfl: polyethylene glycol PO PACK, take 1 Packet by mouth 2 times daily., Disp: 60 Packet, Rfl: 5 Rivaroxaban 20 MG tablet, Take 2.5 mg by mouth 2 times daily. Start in 22 days after the 15mg dose is completed, Disp: , Rfl: senna 8.6 MG PO TABS, take 1 Tab by mouth daily., Disp: 30 Tab, Rfl: 5 therapeutic multivitamin-minerals tablet, Take 1 tablet by mouth at bedtime., Disp: 30 tablet, Rfl:0 zolpidem 5 MG tablet, Take 2 tablets by mouth At bedtime as needed for Sleep., Disp: , Rfl: celecoxib 200 MG capsule, Take 1 capsule by mouth 2 times daily. (Patient not taking: Reported on 01/12/2022), Disp: 60 capsule, Rfl: 0 docusate 100 MG capsule, Take 1 capsule by mouth 2 times daily. (Patient not taking: Reported on 01/12/2022), Disp: 60 capsule, Rfl: 0 methylPREDNIsolone 4 MG Tab Therapy Pack tablet, Take 1 tablet by mouth As directed. follow packagedirections (Patient not taking: Reported on 01/12/2022), Disp: 21 tablet, Rfl: 0 omeprazole [address] capsule, Take 1 capsule by mouth daily. (Patient not taking: Reported on 01/12/2022), Disp: 30 capsule, Rfl: 0 oxyCODONE 5 MG tablet, Take 1-2 tabs po q 4-6 hours PRN pain. Wean as tolerated., Disp: 40 tablet, Rfl: 0 Allergies: He has No Known Allergies. * CARLO Evans - 08/10/2023 11:40 AM EST HPI: Patient is here today for evaluation of their operative hip. He is status post total hip arthroplasty. He is about 2 year out, reports that he is doing well and is pleased with the outcome of the intervention. The hip feels better now than itdid before, and he is not having any new symptoms with it. PHYSICAL EXAM: The bilateral lower extremities were evaluated. The operative lower extremity is soft, nontender with full and supple motion of the hip. No pain, no impingement. No instability. The contralateral extremity has full motion, normal stability, no tenderness. Bilateral lower extremities have normal neurovascular status. Skin otherwise intact. DIAGNOSTIC STUDIES/INTERPRETATION: Plain film radiographs reviewed. He has a total hip arthroplastyin good position and alignment. No evidence of prosthetic implant loosening or migration. ExtensiveHO formation essentially unchanged from previous. IMPRESSION: Stable status post total hip arthroplasty, doing well. PLAN: I am pleased with the outcome of intervention. He has made an excellent recovery. I expect continued improvement in strength and mobility moving forward. I recommend followup in 2 years for repeat clinical and radiographic examination or sooner if any new symptoms develop. Tylenol may be usedto manage any occasional aches and pains. He will call with any questions or concerns in the meantime. Greater than 20 minutes time was spent in review of the medical records, review of previous imaging, and more than 50% of that time was spent on face to face time with patient. CARLO Evans I have reviewed the findings of my clinical staff below and agree with their assessment. Ortho Nurse - Established Patient Intake Room#: 4 Date: 08/10/2023 10:53 AM Patient: Tristin Powell Sr. MR#: [id number] : 1940 Age: 83 y.o. 2yr R SHANNON Pt stated he is doing alright denies any pain at this time. Referring Physician: Self, Self Insurance: Payor: MEDICARE [employer] O PPO / Plan: MEDICARE [employer] O PPO / Product Type: *No Product type* / Chief Complaint Patient presents with Right Hip - Follow-up Visit Vitals Ht 1.88 m (6' 2 ) Wt 104.3 kg (230 lb) BMI 29.53 kg/m Pain Recent Labs Lab Results Component Value Date CRP 1.39 09/01/2011 Lab Results Component Value Date SEDRATE 4 09/02/2011 Lab Results Component Value Date WBC 10.0 07/16/2021 HGB 11.7 (L) 07/16/2021 HCT 34.2 (L) 07/16/2021 PLATELET 127 (L) 07/16/2021 MCV 91.6 07/16/2021 History Past Medical History: Diagnosis Date Arthritis CAD (coronary artery disease) 3 stents placed COPD (chronic obstructive pulmonary disease) Essential hypertension, benign GERD (gastroesophageal reflux disease) Hyperlipidemia Prostate cancer Vascular disease Past Surgical History: Procedure Laterality Date ARTHROPLASTY HIP TOTAL ANTERIOR APPROACH Right 07/15/2021 Laterality: Right; Surgeon: Dashawn Silvestre MD; Location: [facility] PERIPHERAL ANGIOPLASTY N/A 08/09/2018 Laterality: N/A; Surgeon: Isaias Vogt MD; Location: [facility] PERIPHERAL STENT PLACEMENT N/A 08/09/2018 Laterality: N/A; Surgeon: Isaias Vogt MD; Location: [facility] ATHERECTOMY PERIPHERAL N/A 08/09/2018 Laterality: N/A; Surgeon: Isaias Vogt MD; Location: [facility] CORONARY STENT PLACEMENT 2007 x3 total of 7 AMPUTATION front of left toes ANKLE FRACTURE SURGERY Left plate placed in L ankle CORONARY ARTERY BYPASS GRAFT 3 vessel RADIO/SURGICAL IMPLANT INDEX jul 2010-november 2010 radioactive seeds implanted prostate Family History: His family history includes Coronary Artery Disease in his maternal grandmother, paternal aunt, paternal grandmother, and paternal uncle; Diabetes in his mother; Myocardial Infarctionin his father and mother; No known problems in his daughter, sister, and son; Prostate Cancer in his brother. Social History: His reports that he has never smoked. He has never used smokeless tobacco. He reports that he does not drink alcohol and does not use drugs. Outpatient Medications Prior to Visit Medication Sig Dispense Refill acetaminophen 325 MG tablet Take 2 tablets by mouth every 4 hours as needed for Mild Pain. 50 tablet 1 albuterol (2.5 MG/3ML) 0.083% inhalation solution albuterol sulfate 2.5 mg/3 mL (0.083 %) solution for nebulization ASPIRIN 81 PO Take 81 mg by mouth. atorvastatin 40 MG Tab tablet Take 1 tablet by mouth 2 times daily. Takes 1/2 tab bid gabapentin 100 MG Cap capsule Take 3 capsules by mouth 3 times daily. losartan 50 MG tablet Take 0.5 tablets by mouth daily. metoprolol succinate 50 MG PO tablet XL Take 1 tablet by mouth 2 times daily. polyethylene glycol PO PACK take 1 Packet by mouth 2 times daily. 60 Packet 5 Rivaroxaban 20 MG tablet Take 2.5 mg by mouth 2 times daily. Start in 22 days after the 15mg dose is completed senna 8.6 MG PO TABS take 1 Tab by mouth daily. 30 Tab 5 therapeutic multivitamin-minerals tablet Take 1 tablet by mouth at bedtime. 30 tablet 0 zolpidem 5 MG tablet Take 2 tablets by mouth At bedtime as needed for Sleep. celecoxib 200 MG capsule Take 1 capsule by mouth 2 times daily. (Patient not taking: Reported on 01/12/2022) 60 capsule 0 docusate 100 MG capsule Take 1 capsule by mouth 2 times daily. (Patient not taking: Reported on 01/12/2022) 60 capsule 0 methylPREDNIsolone 4 MG Tab Therapy Pack tablet Take 1 tablet by mouth As directed. follow package directions (Patient not taking: Reported on 01/12/2022) 21 tablet 0 omeprazole [address] capsule Take 1 capsule by mouth daily. (Patient not taking: Reported on 01/12/2022) 30 capsule 0 oxyCODONE 5 MG tablet Take 1-2 tabs po q 4-6 hours PRN pain. Wean as tolerated. 40 tablet 0 No facility-administered medications prior to visit. Current Outpatient Medications: acetaminophen 325 MG tablet, Take 2 tablets by mouth every 4 hours as needed for Mild Pain., Disp: 50 tablet, Rfl: 1 albuterol (2.5 MG/3ML) 0.083% inhalation solution, albuterol sulfate 2.5 mg/3 mL (0.083 %) solutionfor nebulization, Disp: , Rfl: ASPIRIN 81 PO, Take 81 mg by mouth., Disp: , Rfl: atorvastatin 40 MG Tab tablet, Take 1 tablet by mouth 2 times daily. Takes 1/2 tab bid, Disp: , Rfl: gabapentin 100 MG Cap capsule, Take 3 capsules by mouth 3 times daily., Disp: , Rfl: losartan 50 MG tablet, Take 0.5 tablets by mouth daily., Disp: , Rfl: metoprolol succinate 50 MG PO tablet XL, Take 1 tablet by mouth 2 times daily., Disp: , Rfl: polyethylene glycol PO PACK, take 1 Packet by mouth 2 times daily., Disp: 60 Packet, Rfl: 5 Rivaroxaban 20 MG tablet, Take 2.5 mg by mouth 2 times daily. Start in 22 days after the 15mg dose is completed, Disp: , Rfl: senna 8.6 MG PO TABS, take 1 Tab by mouth daily., Disp: 30 Tab, Rfl: 5 therapeutic multivitamin-minerals tablet, Take 1 tablet by mouth at bedtime., Disp: 30 tablet, Rfl:0 zolpidem 5 MG tablet, Take 2 tablets by mouth At bedtime as needed for Sleep., Disp: , Rfl: celecoxib 200 MG capsule, Take 1 capsule by mouth 2 times daily. (Patient not taking: Reported on 01/12/2022), Disp: 60 capsule, Rfl: 0 docusate 100 MG capsule, Take 1 capsule by mouth 2 times daily. (Patient not taking: Reported on 01/12/2022), Disp: 60 capsule, Rfl: 0 methylPREDNIsolone 4 MG Tab Therapy Pack tablet, Take 1 tablet by mouth As directed. follow packagedirections (Patient not taking: Reported on 01/12/2022), Disp: 21 tablet, Rfl: 0 omeprazole [address] capsule, Take 1 capsule by mouth daily. (Patient not taking: Reported on 01/12/2022), Disp: 30 capsule, Rfl: 0 oxyCODONE 5 MG tablet, Take 1-2 tabs po q 4-6 hours PRN pain. Wean as tolerated., Disp: 40 tablet, Rfl: 0 Allergies: He has No Known Allergies. documented in this [facility]12-13-2023 History of Present illness Narrative* Mohsen Sarabia MD - 08/09/2023 12:29 PM EST I saw Mr Powell for a follow up visit today. 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 He continues on ASA, statin and low dose xarelto. BP 135/80 (BP Location: Left arm, Patient Position: Sitting, BP Cuff Size: X- large Adult) Pulse 68 Resp 12 Ht 6' 1 Wt 104.3 kg (230 lb) SpO2 93% BMI 30.34 kg/m NAD Breathing comfortably Feet WWP Dopp peroneal and PT bilaterally YAMIEL R 0.39 / L 0.89 No flow limiting stenosis of the L bypass graft A/P: I offered to refer him to a pain clinic who might be able to better help with his neuropathic symptoms. He is not interested at this time. F/u in one year with repeat testing. documented in this [id number] History of Present illness Narrative* Katie Anna RN - 06/20/2023 4:45 PM EDT Patient is s/p Left femoral to peroneal bypass using contralateral reverse greater saphenous vein on 09/07/[address] Mohsen Sarabia. Patient was scheduled for follow up vascular imaging studies and officevisit with Dr. Sarabia on 06-14-23 and cancelled these appointments. Dr. Sarabia updated. Per chart review, the following reasons for cancellation were noted: Cancel Rsn: Patient/Cancelled (pt will call back to reschedule if he decides to do them) Cancel Rsn: Patient/Cancelled (per patient needed to cancel appt and felt there was no need to reschedule appt at this time) Cancel Rsn: Patient/Cancelled (pt will call back to reschedule if he decides to do them) Also per chart review, patient is due for follow up Carotid Duplex and had previous study done at [facility] in Apr [address] Maxim Beaver. This Nurse will obtain records and submit to Dr. Sarabia for review. documented in this [id number] Evaluation note* Encounter Date Diagnosis Assessment Notes Treatment Notes Treatment Clinical Notes May, Bilateral carotid artery stenosis without cerebral infarction (ICD-10 - I65.23) May, Other Carotid bruit He has moderate carotid occlusive disease. He has no symptoms and is on good medical therapy. I will repeat his carotid duplex examination in 1 year. At that time he will also be due for his next graft flow scan to follow his bypass. He is made aware that should he did suffer any significant symptoms including numbness, weakness, blindness, difficulty with speech that he should seek attention. Path Other 09-26-2023 Evaluation note* Encounter Date Diagnosis Assessment Notes Treatment Notes Treatment Clinical Notes Apr, Peripheral vascular disease, unspecified (ICD-10 - I73.9) Apr, Other specified postprocedural states (ICD-10 - Z98.890) Apr, Left carotid bruit (ICD-10 - R09.89) Apr, Other Peripheral vasc ular occlusive disease I will continue to follow him with annual duplex examination of his left lower extremity bypass graft which is 2 years old. There are no focal areas of stenosis or impending failure today. The velocities are somewhat lower than expected due to the poor runoff target. He does not have anatomy amenable to further endovascular or open operative reconstruction for his left leg and the only thing we can offer him for pain relief would be below-knee amputation. Left carotid bruit I do not recall hearing a bruit before and he has not had a carotid duplex examination here. He will undergo carotid duplex and I will see him back at that time to go over the results with him. Path Other 09-26-2023 Evaluation note* Encounter Date Diagnosis Assessment Notes Treatment Notes Treatment Clinical Notes Apr, Peripheral vascular disease, unspecified (ICD-10 - I73.9) Apr, Other specified postprocedural states (ICD-10 - Z98.890) Apr, Left carotid bruit (ICD-10 - R09.89) Path Other 04-25-2023 Hospital Discharge instructions Patient Education 12/20/2022 16:51:51 Erectile Dysfunction Erectile Dysfunction Erectile dysfunction (ED) is the inability to get or keep an erection in order to have sexual intercourse. ED is considered a symptom of an underlying disorder and is not considered a disease. ED mayinclude: Inability to get an erection. Lack of enough hardness of the erection to allow penetration. Loss of erection before sex is finished. What are the causes? This condition may be caused by: Physical causes, such as: ?Artery problems. This may include heart disease, high blood pressure, atherosclerosis, and diabetes. ?Hormonal problems, such as low testosterone. ?Obesity. ?Nerve problems. This may include back or pelvic injuries, multiple sclerosis, Parkinson's disease,spinal cord injury, and stroke. Certain medicines, such as: ?Pain relievers. ?Antidepressants. ?Blood pressure medicines and water pills (diuretics). ?Cancer medicines. ?Antihistamines. ?Muscle relaxants. Lifestyle factors, such as: ?Use of drugs such as marijuana, cocaine, or opioids. ?Excessive use of alcohol. ?Smoking. ?Lack of physical activity or exercise. Psychological causes, such as: ?Anxiety or stress. ?Sadness or depression. ?Exhaustion. ?Fear about sexual performance. ?Guilt. What are the signs or symptoms? Symptoms of this condition include: Inability to get an erection. Lack of enough hardness of the erection to allow penetration. Loss of the erection before sex is finished. Sometimes having normal erections, but with frequent unsatisfactory episodes. Low sexual satisfaction in either partner due to erection problems. A curved penis occurring with erection. The curve may cause pain, or the penis may be too curved toallow for intercourse. Never having nighttime or morning erections. How is this diagnosed? This condition is often diagnosed by: Performing a physical exam to find other diseases or specific problems with the penis. Asking you detailed questions about the problem. Doing tests, such as: ?Blood tests to check for diabetes mellitus or high cholesterol, or to measure hormone levels. ?Other tests to check for underlying health conditions. ?An ultrasound exam to check for scarring. ?A test to check blood flow to the penis. Doing a sleep study at home to measure nighttime erections. How is this treated? This condition may be treated by: Medicines, such as: ?Medicine taken by mouth to help you achieve an erection (oral medicine). ?Hormone replacement therapy to replace low testosterone levels. ?Medicine that is injected into the penis. Your health care provider may instruct you how to give yourself these injections at home. ?Medicine that is delivered with a short applicator tube. The tube is inserted into the opening at the tip of the penis, which is the opening of the urethra. A tiny pellet of medicine is put in the urethra. The pellet dissolves and enhances erectile function. This is also called MUSE (medicated urethral system for erections) therapy. Vacuum pump. This is a pump with a ring on it. The pump and ring are placed on the penis and used to create pressure that helps the penis become erect. Penile implant surgery. In this procedure, you may receive: ?An inflatable implant. This consists of cylinders, a pump, and a reservoir. The cylinders can be inflated with a fluid that helps to create an erection, and they can be deflated after intercourse. ?A semi-rigid implant. This consists of two silicone rubber rods. The rods provide some rigidity. They are also flexible, so the penis can both curve downward in its normal position and become straight for sexual intercourse. Blood vessel surgery to improve blood flow to the penis. During this procedure, a blood vessel froma different part of the body is placed into the penis to allow blood to flow around (bypass) damaged or blocked blood vessels. Lifestyle changes, such as exercising more, losing weight, and quitting smoking. Follow these instructions at home: Medicines Take [id number] and prescription medicines only as told by your health care provider. Do not increase the dosage without first discussing it with your health care provider. If you are using self-injections, do injections as directed by your health care provider. Make sureyou avoid any veins that are on the surface of the penis. After giving an injection, apply pressureto the injection site for 5 minutes. Talk to your health care provider about how to prevent headaches while taking ED medicines. These medicines may cause a sudden headache due to the increase in blood flow in your body. General instructions Exercise regularly, as directed by your health care provider. Work with your health care provider to lose weight, if needed. Do not use any products that contain nicotine or tobacco. These products include cigarettes, chewing tobacco, and vaping devices, such as e-cigarettes. If you need help quitting, ask your health careprovider. Before using a vacuum pump, read the instructions that come with the pump and discuss any questionswith your health care provider. Keep all follow-up visits. This is important. Contact a health care provider if: You feel nauseous. You are vomiting. You get sudden headaches while taking ED medicines. You have any concerns about your sexual health. Get help right away if: You are taking oral or injectable medicines and you have an erection that lasts longer than 4 hours. If your health care provider is unavailable, go to the nearest emergency room for evaluation. An erection that lasts much longer than 4 hours can result in permanent damage to your penis. You have severe pain in your groin or abdomen. You develop redness or severe swelling of your penis. You have redness spreading at your groin or lower abdomen. You are unable to urinate. You experience chest pain or a rapid heartbeat (palpitations) after taking oral medicines. These symptoms may represent a serious problem that is an emergency. Do not wait to see if the symptoms will go away. Get medical help right away. Call your local emergency services (911 in the [place] Do not drive yourself to the hospital. Summary Erectile dysfunction (ED) is the inability to get or keep an erection during sexual intercourse. This condition is diagnosed based on a physical exam, your symptoms, and tests to determine the cause. Treatment varies depending on the cause and may include medicines, hormone therapy, surgery, or a vacuum pump. You may need follow-up visits to make sure that you are using your medicines or devices correctly. Get help right away if you are taking or injecting medicines and you have an erection that lasts longer than 4 hours. This information is not intended to replace advice given to you by your health care provider. Make sure you discuss any questions you have with your health care provider. Document Revised: 11/10/2021 Document Reviewed: 11/10/2021 [employer] Patient Education 2022 [employer] Follow Up Care 11/21/2022 15:38:53 With:BRENNA MOSQUERA PA-C, CHON Address: When:1 year [facility] 03-20-2023 Evaluation note* Encounter Date Diagnosis Assessment Notes Treatment Notes Treatment Clinical Notes Oct, PAD (peripheral artery disease) (ICD-10 - I73.9) Patient remains stable of his peripheral vascular occlusive disease and on good medical therapy with use of aspirin and statin medications daily. He currently has tissue loss and he has no rest pain. We do not have any studies today. A year ago we did have left leg arterial duplex which showed patent bypass graft and he had previous arteriogram which showed right leg has severe tibial level occlusive disease with no good options for conduit except upper arm cephalic vein bilaterally. For now, he remains stable with no ischemic rest pain and no open sores or ulcers. We will continue to follow along and see him again in 6 months with repeat graft flow scan of the left leg and repeat ABIs. He knows to call us in the meantime with any worsening symptoms or concerns. Path Other 03-14-2023 History of Present illness Narrative* Camila Bland, CMO & PRESIDENT - 11/08/2022 12:08 PM EDT Physical Therapy PHYSICAL THERAPY TREATMENT NOTE Skilled Therapy Needs After Discharge Anticipate Resolution of Current Assessment Limitations Including: Pain, Mechanical Barriers, Social Support Are Skilled Therapy Services Needed After Discharge: No DME Recommendation: None Rehab Potential: Good Outcomes Measures Prior Function - Basic Mobility Raw Score: 24 Points Prior Function - Basic Mobility % Impaired: 0% AM-PAC Basic Mobility Raw Score: 20 Points AM-PAC Basic Mobility % Impaired: 33.32% Orourke Balance Scale performed. Pt scored 43 Out of a Possible 56 indicating a Low Fall Risk (41-56) Activity Tolerance Activity Tolerance: Tolerates 10 - 20 min activity with multiple rests Therapy Precautions Orthotic Devices: Yes Lower Extremity: Left, AFO Weight Bearing Status: X LUE: Wt bearing as tolerated General Rehab Precautions: Fall risk Balance Sitting Balance - Static: Independent Sitting Balance - Dynamic: Independent Standing Balance - Static: Stand by assist Standing Balance - Dynamic: Stand by assist Standing Balance Treatment: postural re-education, tandem stance, single leg stance (OROURKE) Skilled Intervention Provided: verbal cues, demonstration, patient education For: balance recovery, fall prevention, initiation of tasks Resulting in: improved functional independence, increased self-management of symptoms and impairments Bed Mobility Rolling: Modified independent, Head of bed elevated Supine to Sit: Supervision, Head of bed elevated Careers Counsellor: bed positioning mechanics, bedrails Skilled Intervention Provided: verbal cues, patient education, monitoring patient response with activity For: logroll technique, proper body mechanics, self-monitoring during activity Resulting in: improved functional independence Transfers Sit to Stand: Stand by assist Stand Pivot Transfers: Stand by assist Careers Counsellor: BUE Skilled Intervention Provided: verbal cues, neuromuscular re-education, patient education For: fall prevention, initiation of task, proper body mechanics Resulting in: improved balance, improved functional independence, decreased assistance required Gait/Locomotion Exercise Additional Treatment Details Completed OROURKE EoB with verbal cues and demonstration. Limited progression d/t pt deferring ambulation with expected d/c this afternoon. Home Living Obtained Home Living and PLOF info from: Patient Lives With: Alone Type of Home: House Home Layout: One level Steps to enter home: Yes Rails to enter home: 2 rails Number of stairs to enter home: 2 Bathroom Shower/Tub: Walk-in shower Bathroom Equipment: Shower chair, Hand-held showerhead Mobility Equipment: Wheeled walker, Cane, Crutches, Wheelchair - manual Additional Objective Details - Home Living: Patient reports ambulating independently without AD when L AFO / prothesis donned; otherwise, using man w/c for mobility. Reports decreased mobility secondary to illness recently Prior Level of Function Level of [place] - Transfers/Ambulation/Mobility: Independent with household ambulation, Independent with community ambulation Level of [place] - ADLs: Independent Level of [place] - Homemaking: Independent Driving: Patient drives For complete objective data, detailed plan of care and patient education refer to: PT Evaluation flowsheet, PT Evaluation and Treatment flowsheet, PT Treatment flowsheet, patient Plan of Care, Plan of Care progress note, and Patient Education. This note stands as the current Discharge Summary upon patient discharge from the hospital or completion of Physical Therapy Plan of Care. * Vickey Dawn MD - 11/08/2022 6:57 AM EDT [facility] Progress Note 11/08/2022 Tristin Bazan Sherry 1940 [id number] Assessment/Plan: Tristin Powell is an 82 year old male with a history of Prostate Cancer, CAD, PAD (left foot amputation 2018), Hypertension, HFpEF who presented to [facility] 11/03/2022 with persistent pneumonia despite #2 rounds of PO antibiotics, as well as diffuse bilateral LE edema and swelling. Troponin 117, BNP 429, CRP 36. CT-PE: no pulmonary embolism, dense LLL consolidation. Abnormal CT Chest: initially diagnosed ~10/19/22 and did not improve with #2 courses of PO antibiotics (initially on Azithromycin/Cefuroxime and then Levaquin since 10/30/22) Admit CT-PE: dense consolidation. MRSA swab, urine Strep/Legionella negative, sputum culture normal cameron. Broadened to Cefepime and Vancomycin on admit. Vancomycin discontinued 11/04/22 as MRSA negative. Pulmonary consulted as unclear if truly PNA. Acute on Chronic HFpEF: Last TTE 09/2018: EF 55% with grade-1 diastolic dysfunction. volume up on admit, not on diuretic at baseline. Added IV Lasix twice daily and repeat TTE 11/06/22 with EF 69%. Cardiology followed, TTE 11/06/22 with EF 69% and grade II DD. Back to PO Lasix 11/08. Left Upper Arm Swelling: initial concern for left biceps tendon rupture or hematoma. Ortho evaluated. Imaging as mentioned. Supportive care. Pain control. MARCO: Cr 1.34 on 11/06/22 and 11/07/22. Likely pre-renal. Baseline Cr within normal limits Held ARB on11/07/22. Resolved 11/08. Hypertension: Continued home Betablocker. Resume ARB on discharge. Severe PAD/Pain Left Lower Extremity: with history of left femoral to Peroneal bypass 09/07/18 and s/p left midfoot amputation (2018) with known diffuse PAD in both legs. Left midfoot amputation (2018), Continued home ASA, Xarelto 2.5mg. PV-Cardiology evaluation not needed at this time. Follow up asoutpatient. Due to increasing pain left leg and partial foot area, consulted Podiatry 11/05/22. Evaluated by Dr. Fenton (Podiatry). Diagnosed with Posterior Tibial Tendinitis on the left due to rubbing effect. Recommended to go to [facility] for adjustment to prevent valgus deformity in the heel from getting worse; arch support on the right. Follow up with Dr. Dashawn Orosco DPM (closer to home). CAD: history of CABG x3 (2017). On ASA, Betablocker, statin. Endorsed left sided cheat pain on taking deep breath 11/07/22. Related to pneumonia/cough. Cardiology followed, no plans for ischemic evaluation. Left Buttock Pressure Injury: Stage unknown, present on admit. Wound team following.. Elevated Troponin: Likely demand ischemia in setting of persistent pneumonia. COPD: no acute exacerbation on admit. Continued home inhaler equivalents. AAA: echo 11/06/22 showed aortic root mildly dilated measuring 4.2 cm with an index of 1.7cm/m2; proximal ascending aorta mildly dilated measuring 4.0 cm with an index of 1.6 cm/m2. BP control. Outpatient surveillance. Constipation: takes Miralax daily at home; resumed. Prostate Cancer: s/p Brachytherapy, reportedly in remission. Code status: Full code. VTE Prophylaxis: Xarelto. Current living situation: Home Expected Disposition: same. Estimated discharge date: pending Pulmonary. Subjective: Patient is new to me today. Today I personally did a review of prior medical records and have summarized my findings in my assessment and plan as noted above. Today I also reviewed recent labs, diagnostics, vitals including pulse ox, and sap consultant/other provider recommendations. VSS. Troponin with negative downtrend. TTE with EF 69%, grade 2 DD. Doing well today,still has a cough, recent antibiotics x2. Discussed Pulmonary consult. Labs stable. Physical Exam: BP (!) 142/67 (BP Location: Right arm, Patient Position: Lying) Pulse 84 Temp 98.4 F (36.9 C) (Oral) Resp 16 Ht 6' 1 Wt 113.4 kg (250 lb) SpO2 90% BMI 32.98 kg/m General: NAD. Eyes: EOMI. ENT: Neck supple. Cardiovascular: Regular rate. Respiratory: Clear to auscultation. Gastrointestinal: Soft, non tender. Genitourinary: No suprapubic tenderness. Musculoskeletal: No edema. Skin: Warm, dry. Neuro: Alert. Psych: Mood appropriate. Current Medications: aspirin 81 mg Oral Daily atorvastatin 40 mg Oral Nightly benzonatate 100 mg Oral TID budesonide-formoteroL 2 puff Inhalation BID And tiotropium bromide 2 puff Inhalation Daily cefePIMe (MAXIPIME) IVPB 2,000 mg Intravenous Q12H docusate sodium 100 mg Oral Daily furosemide 20 mg Oral Daily ipratropium-albuteroL 3 mL Inhalation Q6H [facility] metoprolol tartrate 50 mg Oral BID pantoprazole 40 mg Oral BID polyethylene glycol 17 g Oral Daily rivaroxaban 2.5 mg Oral BID sodium chloride 1 spray Each Nare BID sodium chloride (PF) 5 mL Intravenous Q8H [facility] Labs, Imaging and Studies reviewed: Results from last 7 days Lab Units 11/07/22 0629 11/06/22 1001 11/05/22 0558 WBC K/mcL 5.98 7.07 6.68 HGB g/dL 11.3* 12.5* 12.1* HCT % 34.1* 37.7* 33.8* PLT K/mcL 157 156 164 Results from last 7 days Lab Units 11/07/22 0629 11/06/22 1001 11/05/22 0558 SODIUM mmol/L 136 138 135 POTASSIUM mmol/L 3.8 3.9 3.7 CHLORIDE mmol/L 101 102 101 BICARB mmol/L 23 24 22 BUN mg/dL 26* 26* 22 CREATININE mg/dL 1.34* 1.34* 1.20 EGFR mL/min/1.73 m2 53* 53* 60 GLUCOSE mg/dL 102* 141* 114* CALCIUM mg/dL 8.8 8.9 8.6 PHOSPHORUS mg/dL 3.1 3.6 4.3* * Andree Espitia, PT - 11/07/2022 12:56 PM EDT Physical Therapy PHYSICAL THERAPY TREATMENT NOTE Skilled Therapy Needs After Discharge Anticipate Resolution of Current Assessment Limitations Including: Pain, Mechanical Barriers, Social Support Are Skilled Therapy Services Needed After Discharge: No DME Recommendation: None Rehab Potential: Good Outcomes Measures Prior Function - Basic Mobility Raw Score: 24 Points Prior Function - Basic Mobility % Impaired: 0% AM-PAC Basic Mobility Raw Score: 20 Points AM-PAC Basic Mobility % Impaired: 33.32% Activity Tolerance Activity Tolerance: Tolerates 10 - 20 min activity with multiple rests (LAM noted) Therapy Precautions Orthotic Devices: Yes Lower Extremity: Left, AFO Weight Bearing Status: X LUE: Wt bearing as tolerated General Rehab Precautions: Fall risk Balance Sitting Balance - Static: Independent Sitting Balance - Dynamic: Independent Standing Balance - Static: Stand by assist Careers Counsellor - Standing Static: (none) Standing Balance - Dynamic: Stand by assist, Contact guard assist Careers Counsellor - Standing Dynamic: (none) Skilled Intervention Provided: verbal cues, patient education For: self-monitoring during activity, safe use of AD and/or equipment Resulting in: improved functional independence Bed Mobility Supine to Sit: (N/A Pt sitting edge of bed upon arrival) Sit to Supine: (N/A Pt sitting edge of bed at end of session) Transfers Sit to Stand: Stand by assist Careers Counsellor: (none) Skilled Intervention Provided: verbal cues For: breathing techniques, controlled descent, safety during functional tasks Resulting in: improved functional independence Gait/Locomotion Gait Assistance: Stand by assist, Contact guard assist Assistive Device: (none) Distance: 200 Feet Pattern: antalgic, L decreased step length, R decreased step length, R impaired heel strike, L impaired heel strike (unsteady, no overt LOB) Stair Management Technique: two rails Stair Management Assistance: Contact guard assist Number of Stairs: 4 Skilled Intervention Provided: verbal cues, patient education For: gait sequence, gait technique, improved posture, self-monitoring during activity, proper body mechanics, stairs sequence/technique Resulting in: improved functional independence Home Living Obtained Home Living and PLOF info from: Patient Lives With: Alone Type of Home: House Home Layout: One level Steps to enter home: Yes Rails to enter home: 2 rails Number of stairs to enter home: 2 Bathroom Shower/Tub: Walk-in shower Bathroom Equipment: Shower chair, Hand-held showerhead Mobility Equipment: Wheeled walker, Cane, Crutches, Wheelchair - manual Additional Objective Details - Home Living: Patient reports ambulating independently without AD when L AFO / prothesis donned; otherwise, using man w/c for mobility. Reports decreased mobility secondary to illness recently Prior Level of Function Level of [place] - Transfers/Ambulation/Mobility: Independent with household ambulation, Independent with community ambulation Level of [place] - ADLs: Independent Level of [place] - Homemaking: Independent Driving: Patient drives For complete objective data, detailed plan of care and patient education refer to: PT Evaluation flowsheet, PT Evaluation and Treatment flowsheet, PT Treatment flowsheet, patient Plan of Care, Plan of Care progress note, and Patient Education. This note stands as the current Discharge Summary upon patient discharge from the hospital or completion of Physical Therapy Plan of Care. * Jass Barboza MD - 11/07/2022 7:39 AM EDT [facility] Progress Note 11/07/2022 Tristin Powell 1940 [id number] Assessment/Plan: Tristin Powell is an 82 year old male with a history of Prostate Cancer, CAD, PAD (left foot amputation 2018), Hypertension, HFpEF who presented to [facility] 11/03/2022 with persistent pneumonia despite #2 rounds of PO antibiotics, as well as diffuse bilateral LE edema and swelling. Troponin 117, BNP 429, CRP 36. CT-PE: no pulmonary embolism, dense LLL consolidation. Persistent Pneumonia: initially diagnosed ~10/19/22 and did not improve with #2 courses of PO antibiotics (initially on Azithromycin/Cefuroxime and then Levaquin since 10/30/22) Admit CT-PE: dense consolidation. MRSA swab, urine Strep/Legionella negative, sputum culture normal cameron. Broadened to Cefepime and Vancomycin on admit. Vancomycin discontinued 11/04/22 as MRSA negative. Acute on Chronic HFpEF: Last TTE 09/2018: EF 55% with grade-1 diastolic dysfunction. volume up on admit, not on diuretic at baseline. Added IV Lasix twice daily and repeat TTE 11/06/22 with EF 69%. Left Upper Arm Swelling: initial concern for left biceps tendon rupture or hematoma. Ortho evaluated. Imaging as mentioned. Supportive care. Pain control. MARCO: Cr 1.34 on 11/06/22 and 11/07/22. Likely pre-renal. Baseline Cr within normal limits Held ARB on11/07/22. Avoid nephrotoxins. Monitor. Hypertension: Continued home ARB, Betablocker. Severe PAD/Pain Left Lower Extremity: with history of left femoral to Peroneal bypass 09/07/18 and s/p left midfoot amputation (2018) with known diffuse PAD in both legs. Left midfoot amputation (2019), Continued home ASA, Xarelto 2.5mg. PV-Cardiology evaluation not needed at this time. Follow up asoutpatient. Due to increasing pain left leg and partial foot area, consulted Podiatry 11/05/22. Evaluated by Dr. Fenton (Podiatry). Diagnosed with Posterior Tibial Tendinitis on the left due to rubbing effect. Recommended to go to [facility] for adjustment to prevent valgus deformity in the heel from getting worse; arch support on the right. Follow up with Dr. Dashawn Orosco DPM (closer to home). CAD: history of CABG x3 (2017). On ASA, Betablocker, statin. Endorsed left sided cheat pain on taking deep breath 11/07/22. Could be related to pneumonia/cough but due to cardiac history, will need toevaluate further. Ordered Stat ECG 11/07/22 (SR 83 with PACs and PVCs); Troponin T x2. Echo as mentioned. TSH ordered 11/07/22. Mg++ within normal limits. Cardiology consulted. Monitor on tele (ordered). Left Buttock Pressure Injury: Stage unknown, present on admit. Wound team following.. Elevated Troponin: Likely demand ischemia in setting of persistent pneumonia. COPD: no acute exacerbation on admit. Continued home inhaler equivalents. AAA: echo 11/06/22 showed aortic root mildly dilated measuring 4.2 cm with an index of 1.7cm/m2; proximal ascending aorta mildly dilated measuring 4.0 cm with an index of 1.6 cm/m2. BP control. Outpatient surveillance. Constipation: takes Miralax daily at home; resumed. Prostate Cancer: s/p Brachytherapy, reportedly in remission. Code status: Full code. VTE Prophylaxis: Xarelto. Current living situation: Home Expected Disposition: TBD Estimated discharge date: TBD Subjective: Tristin seen this morning. Feeling rough. Left sided chest pain, lightheadedness, nausea. Foot pain better. Reviewed chart. Discussed with staff. ECG non ischemic but PACs and PVCs. Consulted Cardiology for recommendations. MARCO. ARB held. Physical Exam: BP 103/62 Pulse 86 Temp 99 F (37.2 C) (Oral) Resp 16 Ht 6' 1 Wt 113.4 kg (250 lb) AsZ128% BMI 32.98 kg/m General: NAD Eyes: EOMI ENT: neck supple Cardiovascular: Regular rate. Respiratory: diminished Gastrointestinal: Soft, non tender Genitourinary: no suprapubic tenderness Musculoskeletal: No edema. Skin: warm, dry. Ecchymosis on left arm; left TMA Neuro: Alert. Psych: Mood appropriate. Current Medications: aspirin 81 mg Oral Daily atorvastatin 40 mg Oral Nightly benzonatate 100 mg Oral TID budesonide-formoteroL 2 puff Inhalation BID And tiotropium bromide 2 puff Inhalation Daily cefePIMe (MAXIPIME) IVPB 2,000 mg Intravenous Q12H furosemide 20 mg Intravenous BID AC ipratropium-albuteroL 3 mL Inhalation Q6H [facility] losartan 50 mg Oral Daily with lunch metoprolol tartrate 50 mg Oral BID pantoprazole 40 mg Oral BID polyethylene glycol 17 g Oral Daily rivaroxaban 2.5 mg Oral BID sodium chloride (PF) 5 mL Intravenous Q8H [facility] Labs, Imaging and Studies reviewed: Results from last 7 days Lab Units 11/07/22 0629 11/06/22 1001 11/05/22 0558 WBC K/mcL 5.98 7.07 6.68 HGB g/dL 11.3* 12.5* 12.1* HCT % 34.1* 37.7* 33.8* PLT K/mcL 157 156 164 Results from last 7 days Lab Units 11/06/22 1001 11/05/22 0558 11/04/22 0626 SODIUM mmol/L 138 135 140 POTASSIUM mmol/L 3.9 3.7 4.4 CHLORIDE mmol/L 102 101 105 BICARB mmol/L 24 22 24 BUN mg/dL 26* 22 18 CREATININE mg/dL 1.34* 1.20 0.97 EGFR mL/min/1.73 m2 53* 60 77 GLUCOSE mg/dL 141* 114* 103* CALCIUM mg/dL 8.9 8.6 9.2 PHOSPHORUS mg/dL 3.6 4.3* 3.9* * Jass Barboza MD - 11/06/2022 10:11 AM EDT [facility] Progress Note 11/06/2022 Tristin Powell 1940 [id number] Assessment/Plan: Tristin Powell is an 82 year old male with a history of Prostate Cancer, CAD, PAD (left foot amputation 2018), Hypertension, HFpEF who presented to [facility] 11/03/2022 with persistent pneumonia despite #2 rounds of PO antibiotics, as well as diffuse bilateral LE edema and swelling. Troponin 117, BNP 429, CRP 36. CT-PE: no pulmonary embolism, dense LLL consolidation. Persistent Pneumonia: initially diagnosed ~10/19/22 and did not improve with #2 courses of PO antibiotics (initially on Azithromycin/Cefuroxime and then Levaquin since 10/30/22) Admit CT-PE: dense consolidation. MRSA swab, urine Strep/Legionella negative, sputum culture normal cameron. Broadened to Cefepime and Vancomycin on admit. Vancomycin discontinued 11/04/22 as MRSA negative. Acute on Chronic HFpEF: Last TTE 09/2018: EF 55% with grade-1 diastolic dysfunction. volume up on admit, not on diuretic at baseline. Added IV Lasix twice daily and repeat TTE ordered, pending as of this date. Left Upper Arm Swelling: initial concern for left biceps tendon rupture or hematoma. Ortho evaluated. Imaging as mentioned. Supportive care. Pain control. Hypertension: Continued home ARB, Betablocker. Severe PAD: with history of left femoral to Peroneal bypass 09/07/18 and s/p left midfoot amputation(2018) with known diffuse PAD in both legs. Left midfoot amputation (2018), Continued home ASA, Xarelto 2.5mg. PV-Cardiology evaluation not needed at this time. Follow up as outpatient. Due to increasing pain left partial foot area, consulted Podiatry 11/05/22. CAD: history of CABG x3 (2017). Left Buttock Pressure Injury: Stage unknown, present on admit. Wound team following.. Elevated Troponin: Likely demand ischemia in setting of persistent pneumonia. COPD: no acute exacerbation on admit. Continued home inhaler equivalents. Constipation: takes Miralax daily at home; resumed. Prostate Cancer: s/p Brachytherapy, reportedly in remission. Code status: Full code. VTE Prophylaxis: Xarelto. Current living situation: Home Expected Disposition: TBD Estimated discharge date: TBD Subjective: Tristin seen this morning. Overall feeling better. Reviewed chart. Physical Exam: BP 112/62 Pulse 93 Temp 98.5 F (36.9 C) (Oral) Resp 14 Ht 6' 1 Wt 113.4 kg (250 lb) SpO2 95% BMI 32.98 kg/m General: NAD Eyes: EOMI ENT: neck supple Cardiovascular: Regular rate. Respiratory: diminished Gastrointestinal: Soft, non tender Genitourinary: no suprapubic tenderness Musculoskeletal: No edema. Skin: warm, dry. Ecchymosis on left arm; left TMA Neuro: Alert. Psych: Mood appropriate. Current Medications: aspirin 81 mg Oral Daily atorvastatin 40 mg Oral Nightly benzonatate 100 mg Oral TID budesonide-formoteroL 2 puff Inhalation BID And tiotropium bromide 2 puff Inhalation Daily cefePIMe (MAXIPIME) IVPB 2,000 mg Intravenous Q12H furosemide 20 mg Intravenous BID AC ipratropium-albuteroL 3 mL Inhalation Q6H [facility] losartan 50 mg Oral Daily with lunch metoprolol tartrate 50 mg Oral BID pantoprazole 40 mg Oral BID polyethylene glycol 17 g Oral Daily rivaroxaban 2.5 mg Oral BID sodium chloride (PF) 5 mL Intravenous Q8H [facility] Labs, Imaging and Studies reviewed: Results from last 7 days Lab Units 11/05/22 0558 11/04/22 0611/03/22 1353 WBC K/mcL 6.68 6.54 8.06 HGB g/dL 12.1* 13.0* 13.4* HCT % 33.8* 36.9* 40.7* PLT K/mcL 164 188 192 Results from last 7 days Lab Units 11/05/22 0558 11/04/22 0611/03/22 1353 SODIUM mmol/L 135 140 135 POTASSIUM mmol/L 3.7 4.4 4.3 CHLORIDE mmol/L 101 105 101 BICARB mmol/L 22 24 24 BUN mg/dL 22 18 20 CREATININE mg/dL 1.20 0.97 1.13 EGFR mL/min/1.73 m2 60 77 64 GLUCOSE mg/dL 114* 103* 92 CALCIUM mg/dL 8.6 9.2 9.5 PHOSPHORUS mg/dL 4.3* 3.9* -- * Sheng Sweet, PT - 11/05/2022 2:59 PM EST Physical Therapy PHYSICAL THERAPY TREATMENT NOTE Skilled Therapy Needs After Discharge Anticipate Resolution of Current Assessment Limitations Including: Pain, Mechanical Barriers, Social Support Are Skilled Therapy Services Needed After Discharge: No DME Recommendation: None Rehab Potential: Good Outcomes Measures Prior Function - Basic Mobility Raw Score: 24 Points Prior Function - Basic Mobility % Impaired: 0% AM-PAC Basic Mobility Raw Score: 20 Points AM-PAC Basic Mobility % Impaired: 33.32% Activity Tolerance Activity Tolerance: Tolerates 20 - 30 min activity with multiple rests Therapy Precautions Orthotic Devices: Yes Lower Extremity: Left, AFO Weight Bearing Status: X LUE: Wt bearing as tolerated General Rehab Precautions: Fall risk Balance Sitting Balance - Static: Independent Sitting Balance - Dynamic: Modified independent Sitting Balance Treatment: weight shifting anterior, weight shifting posterior, weight shifting left, weight shifting right, upright gaze Skilled Intervention Provided: verbal cues, patient education For: attention to affected UE/LE, sequencing of movement Resulting in: improved performance, improved functional independence Standing Balance - Static: Contact guard assist Careers Counsellor - Standing Static: other (comment) (none) Standing Balance - Dynamic: Contact guard assist Careers Counsellor - Standing Dynamic: (none) Loss of Balance- Standing Dynamic: intermittent (mild LOB able to recover without assist) Standing Balance Treatment: weight shifting anterior, weight shifting posterior, weight shifting left, weight shifting right, upright gaze Skilled Intervention Provided: verbal cues, tactile cues, patient education For: balance recovery, compensatory strategies, efficient movement, energy conservation Resulting in: improved activity tolerance, improved performance, improved awareness Bed Mobility Rolling: Modified independent Supine to Sit: Modified independent Skilled Intervention Provided: verbal cues For: UE positioning, LE positioning, efficient movement Resulting in: improved performance Transfers Sit to Stand: Contact guard assist Stand Pivot Transfers: Contact guard assist Careers Counsellor: other (comment) (none) Skilled Intervention Provided: verbal cues, tactile cues, monitoring patient vital signs at rest/during/after activity, monitoring patient response with activity For: UE positioning, LE positioning, controlled descent, breathing techniques Resulting in: improved activity tolerance, improved performance, increased insight into deficits Gait/Locomotion Gait Assistance: Contact guard assist Assistive Device: other (comment) (none) Distance: 135 Feet Pattern: L decreased step length, R decreased step length, L decreased stance time, path deviation Gait Loss(es) of Balance: intermittent (able to recover without assist) Skilled Intervention Provided: verbal cues, tactile cues For: breathing techniques, gait technique, improved posture Resulting in: improved activity tolerance, improved performance, increased insight into deficits Exercise Hip Flexion: x15 Hip Abduction: x15 Long Arc Quad: x15 Seated Exercises: x15 Breathing Training: Diaphragmatic breathing, Rib cage expansion Skilled Intervention Provided: verbal cues, tactile cues, instruction on proper technique/alignment, monitoring patient response with exercise, patient education For: achieving full ROM as tolerated, breath control/breathing pattern with exercise, efficient movement, energy conservation, muscle activation Resulting in: improved activity tolerance, improved performance, improved functional strength/ROM Additional Treatment Details patient reports fatigue and increased dyspnea with ambualtion, pain in left foot (residual limb) difficult to ambulate long distances due to pain, educated and encouraged patient to continue to use inspiromeeter to improve lung function Home Living Obtained Home Living and PLOF info from: Patient Lives With: Alone Type of Home: House Home Layout: One level Steps to enter home: Yes Rails to enter home: 2 rails Number of stairs to enter home: 2 Bathroom Shower/Tub: Walk-in shower Bathroom Equipment: Shower chair, Hand-held showerhead Mobility Equipment: Wheeled walker, Cane, Crutches, Wheelchair - manual Additional Objective Details - Home Living: Patient reports ambulating independently without AD when L AFO / prothesis donned; otherwise, using man w/c for mobility. Reports decreased mobility secondary to illness recently Prior Level of Function Level of [place] - Transfers/Ambulation/Mobility: Independent with household ambulation, Independent with community ambulation Level of [place] - ADLs: Independent Level of [place] - Homemaking: Independent Driving: Patient drives For complete objective data, detailed plan of care and patient education refer to: PT Evaluation flowsheet, PT Evaluation and Treatment flowsheet, PT Treatment flowsheet, patient Plan of Care, Plan of Care progress note, and Patient Education. This note stands as the current Discharge Summary upon patient discharge from the hospital or completion of Physical Therapy Plan of Care. * Jass Barboza MD - 11/05/2022 9:53 AM EST [facility] Inpatient Progress Note 11/05/2022 Tristin Powell 1940 [id number] Assessment/Plan: Tristin Powell is an 82 year old male with a history of Prostate Cancer, CAD, PAD (left foot amputation 2018), Hypertension, HFpEF who presented to [facility] 11/03/2022 with persistent pneumonia despite #2 rounds of PO antibiotics, as well as diffuse bilateral LE edema and swelling. Troponin 117, BNP 429, CRP 36. CT-PE: no pulmonary embolism, dense LLL consolidation. Persistent Pneumonia: initially diagnosed ~10/19/22 and did not improve with #2 courses of PO antibiotics (initially on Azithromycin/Cefuroxime and then Levaquin since 10/30/22) Admit CT-PE: dense consolidation. MRSA swab, urine Strep/Legionella negative, sputum culture pending. Broadened to Cefepime and Vancomycin on admit. Vancomycin discontinued 11/04/22 as MRSA negative. Acute on Chronic HFpEF: Last TTE 09/2018: EF 55% with grade-1 diastolic dysfunction. volume up on admit, not on diuretic at baseline. Added IV Lasix twice daily and repeat TTE ordered. Left Upper Arm Swelling: initial concern for left biceps tendon rupture or hematoma. Ortho evaluated. Imaging as mentioned. Supportive care. Pain control. Hypertension: Continued home ARB, Betablocker. Severe PAD: with history of left femoral to Peroneal bypass 09/07/18 and s/p left midfoot amputation(2018) with known diffuse PAD in both legs. Left midfoot amputation (2018), Continued home ASA, Xarelto 2.5mg. PV-Cardiology evaluation not needed at this time. Follow up as outpatient. Due to increasing pain left partial foot area, consulted Podiatry 11/05/22. CAD: history of CABG x3 (2017). Left Buttock Pressure Injury: Stage unknown, present on admit. Wound team following.. Elevated Troponin: Likely demand ischemia in setting of persistent pneumonia. COPD: no acute exacerbation on admit. Continued home inhaler equivalents. Prostate Cancer: s/p Brachytherapy, reportedly in remission. Code status: Full code. VTE Prophylaxis: Xarelto. Current living situation: Home Expected Disposition: TBD Estimated discharge date: TBD Subjective: Patient seen this morning. Cough is better. Severe pain left foot area. Nasal irritation. ConsultedPodiatry. Prescribed [place] Saline nasal spray. Reviewed chart. Physical Exam: BP 128/65 Pulse 75 Temp 98.8 F (37.1 C) (Oral) Resp 14 Ht 6' 1 Wt 113.4 kg (250 lb) SpO2 94% BMI 32.98 kg/m General: NAD Eyes: EOMI ENT: neck supple Cardiovascular: Regular rate. Respiratory: diminished Gastrointestinal: Soft, non tender Genitourinary: no suprapubic tenderness Musculoskeletal: No edema. Skin: warm, dry. Ecchymosis on left arm; left TMA Neuro: Alert. Psych: Mood appropriate. Current Medications: aspirin 81 mg Oral Daily atorvastatin 40 mg Oral Nightly benzonatate 100 mg Oral TID budesonide-formoteroL 2 puff Inhalation BID And tiotropium bromide 2 puff Inhalation Daily cefePIMe (MAXIPIME) IVPB 2,000 mg Intravenous Q12H furosemide 20 mg Intravenous BID AC ipratropium-albuteroL 3 mL Inhalation Q6H SADIA losartan 50 mg Oral Daily with lunch metoprolol tartrate 50 mg Oral BID pantoprazole 40 mg Oral BID rivaroxaban 2.5 mg Oral BID sodium chloride (PF) 5 mL Intravenous Q8H SADIA Labs, Imaging and Studies reviewed: Results from last 7 days Lab Units 11/05/22 0558 11/04/22 0611/03/22 1353 WBC K/mcL 6.68 6.54 8.06 HGB g/dL 12.1* 13.0* 13.4* HCT % 33.8* 36.9* 40.7* PLT K/mcL 164 188 192 Results from last 7 days Lab Units 11/05/22 0558 11/04/22 0626 11/03/22 1353 SODIUM mmol/L 135 140 135 POTASSIUM mmol/L 3.7 4.4 4.3 CHLORIDE mmol/L 101 105 101 BICARB mmol/L 22 24 24 BUN mg/dL 22 18 20 CREATININE mg/dL 1.20 0.97 1.13 EGFR mL/min/1.73 m2 60 77 64 GLUCOSE mg/dL 114* 103* 92 CALCIUM mg/dL 8.6 9.2 9.5 PHOSPHORUS mg/dL 4.3* 3.9* -- * Maxine Summers RN - 11/04/2022 3:14 PM EST WOC/ET RN consult/evaluation note: Evaluated Tristin Powell for wound located on left buttock. Description of wound/Recommendation: Responding to a wound care consult for assessment of a wound to the left buttock. Upon assessment he has a small brown scab. The surrounding area is pink and soft. Clearaid was applied - Recommend Clear Aid protective ointment to coccyx and buttocks twice daily and as needed after cleansing. Thank you for the consult. Orders have been place. These orders fall within the realm of bedside nursing. I will sign off at this time. Please do not hesitate to re consult with any further issues orconcerns. Wilder Score: 18 Recommend pressure reduction techniques including frequent repositioning, minimizing elevation of the head of the bed, and encouraging patient to be out of bed as much as possible (use pressure reducing chair cushion when sitting in chair) unless medically contraindicated. Surface: Low air loss Wound documentation : 11/04/22 1500 Wound 11/04/22 Buttock Left Date First Assessed/Time First Assessed: 11/04/22222 Present on Hospital Admission: Yes Primary Wound Type: (c) Location: Buttock Wound Location Orientation: Left Dressing Status Open to air Wound Length (cm) 0.3 cm Wound Width (cm) 0.3 cm Wound Surface Area (cm^2) 0.09 cm^2 Area % Change 0 Drainage Amount None Odor None Wound Bed Characteristics Scab Edna-wound Assessment Painful;Carver Treatments Skin barrier cream/paste Cleansed Soap and water RN notified of assessment and plan. Maxine Summers RN * Stan Toro, PT - 11/04/2022 1:45 PM EST Physical Therapy PHYSICAL THERAPY EVALUATION Skilled Therapy Needs After Discharge Anticipate Resolution of Current Assessment Limitations Including: Social Support Are Skilled Therapy Services Needed After Discharge: No DME Recommendation: None Rehab Potential: Good Outcomes Measures Prior Function - Basic Mobility Raw Score: 24 Points Prior Function - Basic Mobility % Impaired: 0% AM-PAC Basic Mobility Raw Score: 20 Points AM-PAC Basic Mobility % Impaired: 33.32% Physical Therapy Assessment History: The following factors influence the patient's participation in the PT plan of care: Personal Factors: Age, Social Barriers Environmental Factors: Lives alone, Steps to enter home The following co-morbidities (from this admission or prior) influence the patient's participation in this plan of care: persistent pneumonia, acute on chronic HFpEF, L UE swelling, HTN, Severe PAD, CAD, L buttock pressure injury, elevated troponin, COPD ,prostate cancer Number of History elements affecting this patient's PT plan of care: 3 or more Examination of Body Systems: The patient presents with: Musculoskeletal impairments: Functional Endurance, Pain Neurologic Impairments: Balance, Sensation Cardiopulmonary Impairments: Activity Tolerance Vascular Impairments: Amputation, Edema. These impairments result in limitations of Gait, Functional Transfers, Stair- Climbing, Safety, Activity Tolerance. These impairments result in restrictions of Household mobility, Community mobility, Leisure activities. Number of Body Systems elements affecting this patient's PT plan of care: 4 or more. Clinical Presentation: The patient's clinical presentation for this PT evaluation is evolving with changing characteristics as evidenced by current PT documentation. Activity Tolerance Activity Tolerance: Tolerates 10 - 20 min activity with multiple rests (SPO2 96% on RA) Therapy Precautions Orthotic Devices: Yes Lower Extremity: Left, AFO, Prosthesis Weight Bearing Status: X LUE: Wt bearing as tolerated (ROMAT) General Rehab Precautions: Fall risk Balance Assessment Sitting Balance - Static: Modified independent Sitting Balance - Dynamic: Modified independent Standing Balance - Static: Contact guard assist, Stand by assist Standing Balance - Dynamic: Contact guard assist Bed Mobility Rolling: Modified independent Supine to Sit: Modified independent Sit to Supine: (Pt. remains sitting in chair at end of therapy session.) Transfers Sit to Stand: Contact guard assist Stand Pivot Transfers: Contact guard assist Gait/Locomotion Gait Assistance: Contact guard assist, Stand by assist Assistive Device: (none) Distance: 125 Feet Pattern: step through, L impaired heel strike, R decreased step length, L decreased step length, forward flexed, antalgic Gait Loss(es) of Balance: (No overt LOB noted with functional mobility) Additional Assessment Details Patient educated and instructed on incentive inspirometer and L UE WBAT / ROM AT precautions -verbalized understanding. Home Living Obtained Home Living and PLOF info from: Patient Lives With: Alone Type of Home: House Home Layout: One level Steps to enter home: Yes Rails to enter home: 2 rails Number of stairs to enter home: 2 Bathroom Shower/Tub: Walk-in shower Bathroom Equipment: Shower chair, Hand-held showerhead Mobility Equipment: Wheeled walker, Cane, Crutches, Wheelchair - manual Additional Objective Details - Home Living: Patient reports ambulating independently without AD when L AFO / prothesis donned; otherwise, using man w/c for mobility. Reports decreased mobility secondary to illness recently Prior Level of Function Level of [place] - Transfers/Ambulation/Mobility: Independent with household ambulation, Independent with community ambulation Level of [place] - ADLs: Independent Level of [place] - Homemaking: Independent Driving: Patient drives Past Medical History: Diagnosis Date Arthritis Avascular necrosis of bone of hip (HCC) Claudication (HCC) Coronary artery disease Herpes zoster Hyperlipidemia Hypertension PAD (peripheral artery disease) ([facility]) 01/21/2022 Prostate cancer (HCC) Vascular disease Past Surgical History: Procedure Laterality Date 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/08/2018 Procedure: LEFT MIDFOOT AMPUTATION; Surgeon: Flynn Mann DPM; Location: [facility]; Service: Podiatry ANKLE SURGERY Left BYPASS PERONEAL FEMORAL Right 09/07/2018 Procedure: BYPASS PERONEAL FEMORAL, RIGHT SAPHENOUS VEIN HARVEST, COMPLETION ANGIOGRAM; Surgeon: Mohsen Sarabia MD; Location: [facility] NEURO OR; Service: Cardiovascular CARDIAC CATHETERIZATION Left 09/05/2018 Procedure: Angio Lower Extremity; Surgeon: Ben Hahn MD; 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 This note stands as the current Discharge Summary upon patient discharge from the hospital or completion of Physical Therapy Plan. * Jass Barboza MD - 11/04/2022 10:58 AM EST [facility] Progress Note 11/04/2022 Tristin Powell 1940 [id number] Assessment/Plan: Tristin Powell is an 82 year old male with a history of Prostate Cancer, CAD, PAD (left foot amputation 2018), Hypertension, HFpEF who presented to [facility] 11/03/2022 with persistent pneumonia despite #2 rounds of PO antibiotics, as well as diffuse bilateral LE edema and swelling. Troponin 117, BNP 429, CRP 36. CT-PE: no pulmonary embolism, dense LLL consolidation. Persistent Pneumonia: initially diagnosed ~10/19/22 and did not improve with #2 courses of PO antibiotics (initially on Azithromycin/Cefuroxime and then Levaquin since 10/30/22) Admit CT-PE: dense consolidation. MRSA swab, urine Strep/Legionella negative, sputum culture pending. Broadened to Cefepime and Vancomycin on admit. Vancomycin discontinued 11/04/22 as MRSA negative. Acute on Chronic HFpEF: Last TTE 09/2018: EF 55% with grade-1 diastolic dysfunction. volume up on admit, not on diuretic at baseline. Added IV Lasix twice daily and repeat TTE ordered. Left Upper Arm Swelling: initial concern for left biceps tendon rupture or hematoma. Ortho evaluated. Imaging as mentioned. Supportive care. Pain control. Hypertension: Continued home ARB, Betablocker. Severe PAD: with history of left femoral to Peroneal bypass 09/07/18 and s/p left midfoot amputation(2018) with known diffuse PAD in both legs. Left midfoot amputation (2019), Continued home ASA, Xarelto 2.5mg. PV-Cardiology evaluation not needed at this time. Follow up as outpatient. CAD: history of CABG x3 (2017). Left Buttock Pressure Injury: Stage unknown, present on admit. Wound team consulted. Elevated Troponin: Likely demand ischemia in setting of persistent pneumonia. COPD: no acute exacerbation on admit. Continued home inhaler equivalents. Prostate Cancer: s/p Brachytherapy, reportedly in remission. Code status: Full code. VTE Prophylaxis: Xarelto. Current living situation: Home Expected Disposition: TBD Estimated discharge date: TBD Subjective: Tristin sitting up in bed.complains of cough. Tessalon Perles helps, so scheduled. Complains of pain left foot area and left arm. Takes Percocet PRN, ordered. Reviewed chart. Secure chatted withy Pharmacist- that as MRSA negative, will discontinue Vanco. Labs: 6.54>13.0<188 36.9 140 I 105 I 18 / 103 4.4 I 24 I 0.97 \ X-ray Left Humerus: moderate AC joint degeneration; moderate to large triceps enthesophyte Physical Exam: BP 123/72 Pulse 90 Temp 97.5 F (36.4 C) (Oral) Resp 16 Ht 6' 1 Wt 113.4 kg (250 lb) SpO2 90% BMI 32.98 kg/m General: NAD Eyes: EOMI ENT: neck supple Cardiovascular: Regular rate. Respiratory: diminished Gastrointestinal: Soft, non tender Genitourinary: no suprapubic tenderness Musculoskeletal: No edema. Skin: warm, dry. Ecchymosis on left arm; left TMA Neuro: Alert. Psych: Mood appropriate. Current Medications: aspirin 81 mg Oral Daily atorvastatin 40 mg Oral Nightly benzonatate 100 mg Oral TID budesonide-formoteroL 2 puff Inhalation BID And tiotropium bromide 2 puff Inhalation Daily cefePIMe (MAXIPIME) IVPB 2,000 mg Intravenous Q12H furosemide 20 mg Intravenous BID AC ipratropium-albuteroL 3 mL Inhalation Q6H SADIA losartan 50 mg Oral Daily with lunch metoprolol tartrate 50 mg Oral BID pantoprazole 40 mg Oral BID rivaroxaban 2.5 mg Oral BID sodium chloride (PF) 5 mL Intravenous Q8H SADIA vancomycin 750 mg Intravenous Q12H Labs, Imaging and Studies reviewed: Results from last 7 days Lab Units 11/04/22 0626 11/03/22 1353 WBC K/mcL 6.54 8.06 HGB g/dL 13.0* 13.4* HCT % 36.9* 40.7* PLT K/mcL 188 192 Results from last 7 days Lab Units 11/04/22 0626 11/03/22 1353 SODIUM mmol/L 140 135 POTASSIUM mmol/L 4.4 4.3 CHLORIDE mmol/L 105 101 BICARB mmol/L 24 24 BUN mg/dL 18 20 CREATININE mg/dL 0.97 1.13 EGFR mL/min/1.73 m2 77 64 GLUCOSE mg/dL 103* 92 CALCIUM mg/dL 9.2 9.5 PHOSPHORUS mg/dL 3.9* -- * El Owen RPh,PharmD - 11/03/2022 10:20 PM EST PHARMACOTHERAPY NOTE: Antimicrobial Therapy Initiation Assessment / Plan: Tristin Powell is a 82 y.o. male initiated on antimicrobial therapy for pneumonia. Patient will be initiated on a one time loading dose of Vancomycin 2500mg, followed by a maintenance dose of 750mg q12h Vancomycin goal AUC is 400-600 mcg h/mL. Current regimen will produce a predicted AUC of 441 mcg h/mL with trough of 15.5 mcg/mL. Pharmacy will continue to follow, monitor serum creatinine levels and urine output (if available) daily, order levels, and make adjustments as clinically appropriate. Please call pharmacy with questions. Other antimicrobial regimens: cefepime Subjective/Objective: Ht Readings from Last 1 Encounters: 11/03/22 6' 1 (185.4 cm) Wt Readings from Last 1 Encounters: 11/03/22 113.4 kg (250 lb) [place] body weight: 79.9 kg (176 lb 2.4 oz) Adjusted ideal body weight: 93.3 kg (205 lb 11 oz) Labs include: WBC (K/mcL) Date Value 11/03/2022 8.06 Creatinine (mg/dL) Date Value 11/03/2022 1.13 10/21/2019 1.1 Estimated Creatinine Clearance: 56 mL/min (by C-G formula based on SCr of 1.13 mg/dL). Patient Tmax (last 24 hours): 98.2 F Micro: Procedure Component Value Units Date/Time Sputum Aerobic Culture [[id number]] Order Status: Sent Specimen: Sputum, Expectorated S. pneumoniae Urine Antigen [[id number]] Order Status: Sent Specimen: Urine, Random Legionella Antigen, Urine [[id number]] Order Status: Sent Specimen: Urine, Random MRSA DNA Amplified Probe [[id number]] Order Status: Sent Specimen: Swab from Nasal Blood Culture Aerobic/Anaerobic [[id number]] (Normal) Collected: 11/03/22 135 Order Status: Completed Specimen: Blood, Peripheral Updated: 11/03/221558 Culture In Progress; No Growth to Date Blood Culture Aerobic/Anaerobic [[id number]] (Normal) Collected: 11/03/22 135 Order Status: Completed Specimen: Blood, Peripheral Updated: 11/03/221558 Culture In Progress; No Growth to Date Pharmacist: El Owen RPh,PharmD Contact Number: documented in this [id number] Hospital Discharge instructions * Discharge Instructions* Vickey Dawn MD - 11/08/2022 11:41 AM EDT You were hospitalized for pneumonia and heart failure. You were seen by Cardiology and Pulmonary. Complete your antibiotics and follow-up with your specialists. You were also started on a water pill to help keep fluid from building up. * Discharge Instr - AVS First Page* Vickey Dawn MD - 11/08/2022 11:23 AM EDT You were hospitalized for pneumonia and heart failure. You were seen by Cardiology and Pulmonary. Complete your antibiotics and follow-up with your specialists. You were also started on a water pill to help keep fluid from building up. * Attachments The following attachments cannot be sent through Care Everywhere. * Heart Failure: Avoiding Triggers ([place]) * Heart Failure: Limiting Sodium ([place]) * Heart Failure: Restricting Fluids: General Info ([place]) * Low Sodium Diet ([place]) documented in this [id number] Hospital course Narrative* Vickey Dawn MD - 11/08/2022 11:18 AM EDT Images from the original note were not included. MEDONE DISCHARGE SUMMARY Tristin Powell Account: [id number] Admitted: 11/03/2022 Discharge Date/Time: 11/08/22 11:30 AM Handoff to PCP PCP to address the following - BMP in 1 week given started on Lasix Follow-up with Cardiology, discharged on Lasix Follow-up with Pulmonary, discharged on additional 5 days of Levaquin for total 10d course (received cefepime x5d in-house) Clinical Summary Tristin Powell is an 82 year old male with a history of Prostate Cancer, CAD, PAD (left foot amputation 2018), Hypertension, HFpEF who presented to [facility] 11/03/2022 with persistent pneumonia despite #2 rounds of PO antibiotics, as well as diffuse bilateral LE edema and swelling. Troponin 117, BNP 429, CRP 36. CT-PE: no pulmonary embolism, dense LLL consolidation. Received IV antibiotics and diuresis. Recurrent CAP: initially diagnosed ~10/19/22 and did not improve with #2 courses of PO antibiotics (initially on Azithromycin/Cefuroxime and then Levaquin since 10/30/22) Admit CT-PE: dense consolidation. MRSA swab, urine Strep/Legionella negative, sputum culture normal cameron. Broadened to Cefepime and Vancomycin on admit. Vancomycin discontinued 11/04/22 as MRSA negative. Pulmonary followed, discharged on additional 5 days of Levaquin for total 10d course (received cefepime x5d in-house) and otherwise outpatient f/u with CT in 4-6 weeks with Pulmonary. Acute on Chronic HFpEF: Last TTE 09/2018: EF 55% with grade-1 diastolic dysfunction. volume up on admit, not on diuretic at baseline. Added IV Lasix twice daily and repeat TTE 11/06/22 with EF 69%. Cardiology followed, TTE 11/06/22 with EF 69% and grade II DD. Back to PO Lasix 11/08. Follow-up outpatient. Left Upper Arm Swelling: initial concern for left biceps tendon rupture or hematoma. Ortho evaluated. Imaging as mentioned. Supportive care. Pain control. MARCO: Cr 1.34 on 11/06/22 and 11/07/22. Likely pre-renal. Baseline Cr within normal limits Held ARB on11/07/22. Resolved 11/08. BMP in 1 week Hypertension: Continued home Betablocker. Resumed ARB on discharge. Severe PAD/Pain Left Lower Extremity: with history of left femoral to Peroneal bypass 09/07/18 and s/p left midfoot amputation (2018) with known diffuse PAD in both legs. Left midfoot amputation (2018), Continued home ASA, Xarelto 2.5mg. PV-Cardiology evaluation not needed at this time. Follow up asoutpatient. Due to increasing pain left leg and partial foot area, consulted Podiatry 11/05/22. Evaluated by Dr. Fenton (Podiatry). Diagnosed with Posterior Tibial Tendinitis on the left due to rubbing effect. Recommended to go to [facility] for adjustment to prevent valgus deformity in the heel from getting worse; arch support on the right. Follow up with Dr. Dashawn Orosco DPM (closer to home). CAD: history of CABG x3 (2017). On ASA, Betablocker, statin. Endorsed left sided cheat pain on taking deep breath 11/07/22. Related to pneumonia/cough. Cardiology followed, no plans for ischemic evaluation. Left Buttock Pressure Injury: Stage unknown, present on admit. Wound team following.. Elevated Troponin: Likely demand ischemia in setting of persistent pneumonia. COPD: no acute exacerbation on admit. Continued home inhaler equivalents. AAA: echo 11/06/22 showed aortic root mildly dilated measuring 4.2 cm with an index of 1.7cm/m2; proximal ascending aorta mildly dilated measuring 4.0 cm with an index of 1.6 cm/m2. BP control. Outpatient surveillance. Constipation: takes Miralax daily at home; resumed. Prostate Cancer: s/p Brachytherapy, reportedly in remission. Code status: Full code. Disposition: Home. Discussed with Pulmonary stable for discharge on Levaquin for total 10d course of antibiotics and outpatient follow-up. Discharge Medications Medication List START taking these medications furosemide 20 MG tablet Commonly known as: LASIX Take 1 (one) tablet (20 mg total) by mouth daily Start: 11/09/22. Start taking on: November 09, 2022 levoFLOXacin 750 MG tablet Commonly known as: LEVAQUIN Take 1 (one) tablet (750 mg total) by mouth daily for 5 days Start: 11/09/22. Start taking on: November 09, 2022 CONTINUE taking these medications * albuterol 2.5 mg /3 mL (0.083 %) nebulizer solution Commonly known as: PROVENTIL Take 3 mL (2.5 mg total) by nebulization every 6 (six) hours as needed for wheezing . * albuterol 90 mcg/actuation inhaler Inhale 2 (two) puffs every 4 (four) hours as needed for wheezing, shortness of breath or cough . aspirin 81 mg Cap atorvastatin 40 MG tablet Commonly known as: LIPITOR ergocalciferol 1,250 mcg (50,000 unit) capsule Commonly known as: ERGOCALCIFEROL fluticasone propionate 50 mcg/actuation nasal spray Commonly known as: FLONASE 2 (two) sprays by Each Nare route daily . ipratropium-albuteroL 0.5-2.5 mg/3 ml nebulizer Commonly known as: DUO-NEB losartan 50 MG tablet Commonly known as: COZAAR metoprolol tartrate 50 MG tablet Commonly known as: LOPRESSOR omeprazole 20 MG capsule Commonly known as: PRILOSEC oxyCODONE-acetaminophen 5-325 mg per tablet Commonly known as: PERCOCET polyethylene glycol 17 gram powder Commonly known as: MIRALAX rivaroxaban 2.5 mg tablet Commonly known as: XARELTO Trelegy Ellipta 100-62.5-25 mcg Dsdv Generic drug: waqogqnnhuk-bzqgtbzlf-oxtwhfqv zolpidem 10 mg tablet Commonly known as: AMBIEN * This list has 2 medication(s) that are the same as other medications prescribed for you. Read thedirections carefully, and ask your doctor or other care provider to review them with you. STOP taking these medications ammonium lactate 12 % lotion Commonly known as: LAC-HYDRIN gabapentin 100 MG capsule Commonly known as: NEURONTIN tiotropium bromide 2.5 mcg/actuation Mist Commonly known as: SPIRIVA RESPIMAT Where to Get Your Medications These medications were sent to [facility] [id number] [facility] [address] [facility] [address] [id number] furosemide 20 MG tablet levoFLOXacin 750 MG tablet Physician(s) Family: Flash Lovelace MD, , Address: [address] [place] [address] / [facility] [id number] Follow Up: Dashawn Orosco DPM [address] [place] [address] Dr [address] [phone] Schedule an appointment as soon as possible for a visit in 1 week(s) [facility] [address] [facility] [address] [place] [address] Follow up Thank you for allowing us to participate in your care. Schedule an appt with your established warp tester in [place]. Call us with any questions. Wagner Moon MD [address] [place] [address] [address] Call in 4 week(s) Call in 4-6 weeks after follow up CT chest Additional Information: Patient seen and examined day of discharge. For more information regarding patient's care, including complete radiology reports, please contact [facility] at Patient instructions, including activity, were given to the patient/family at discharge. Please seethe After Visit Summary in the medical record for details. Time spent on discharge: > 30 minutes Completed by: Vickey Dawn on 11/08/22, 11:30 AM documented in this [id number] Consult note* Monica Vázquez RN - 11/07/2022 12:15 PM EDTAssociated Order(s): IP CONSULT TO CARDIAC REHAB HEART FAILURE EDUCATION - Completed LEARNER: Patient METHOD: Face to face interaction at bedside EF: 69 % NT Pro BNP: 429 PERTINENT CLINICAL INFORMATION: Acute diastolic congestive heart failure. Trigger- suspect hypertension not adequately controlled EDUCATION POINTS: Heart Failure disease process and contributing factors affecting heart function. Heart Failure signs and symptoms; importance of early recognition and report to their warp tester,PCP or health care provider. Daily weight monitoring and reporting weight gain of 2-3 lbs in 24 hours or 5 lbs in 5-7 days. Encouraged to follow up with their health care providers. Encouraged medication compliance; use of an organized system such as a pillbox. Lifestyle changes encouraged such as increasing activity as able, moderation of alchohol intake; cessation of tobacco and substance abuse. Low sodium diet, label reading, food to limit and avoid, ways to flavor food without salt. Patient stated he is a big salt person . Salts food, eats half a loaf of bread/day, eats luncheon meats often. Adherence to 2 liter daily fluid restriction and how to measure fluid intake. Drinks x4 12oz of water and 2 cups of coffee a day. RESPONSE: Patient receptive, stated understanding of topics discussed and voiced intent to comply with instructions and make the needed diet, fluid and lifestyle changes. MATERIALS, RESOURCES GIVEN: [facility] Guide to Living with Heart Failure book, 5 day low sodium+ Diabetic sample menu. Clinical references attached to AVS. [id number] Consult note* Monica Vázquez RN - 11/07/2022 12:15 PM EDTAssociated Order(s): IP CONSULT TO CARDIAC REHAB HEART FAILURE EDUCATION - Completed LEARNER: Patient METHOD: Face to face interaction at bedside EF: 69 % NT Pro BNP: 429 PERTINENT CLINICAL INFORMATION: Acute diastolic congestive heart failure. Trigger- suspect hypertension not adequately controlled EDUCATION POINTS: Heart Failure disease process and contributing factors affecting heart function. Heart Failure signs and symptoms; importance of early recognition and report to their warp tester,PCP or health care provider. Daily weight monitoring and reporting weight gain of 2-3 lbs in 24 hours or 5 lbs in 5-7 days. Encouraged to follow up with their health care providers. Encouraged medication compliance; use of an organized system such as a pillbox. Lifestyle changes encouraged such as increasing activity as able, moderation of alchohol intake; cessation of tobacco and substance abuse. Low sodium diet, label reading, food to limit and avoid, ways to flavor food without salt. Patient stated he is a big salt person . Salts food, eats half a loaf of bread/day, eats luncheon meats often. Adherence to 2 liter daily fluid restriction and how to measure fluid intake. Drinks x4 12oz of water and 2 cups of coffee a day. RESPONSE: Patient receptive, stated understanding of topics discussed and voiced intent to comply with instructions and make the needed diet, fluid and lifestyle changes. MATERIALS, RESOURCES GIVEN: [facility] Guide to Living with Heart Failure book, 5 day low sodium+ Diabetic sample menu. Clinical references attached to AVS. * Kory Mei, KAMARI - 11/07/2022 10:11 AM EDTAssociated Order(s): IP CONSULT TO CARDIOLOGY General Cardiology Inpatient Consult Heart & Vascular [facility] 11/07/[address] 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 Localized left sided chest pain with deep breath only in setting of pneumonia/cough D-dimer not checked EKG without acute ischemic changes. Admit echo with preserved left ventricular systolic function and no wall motion abnormalities Secondary causes for troponin elevation could include: renal insufficiency Coronary artery disease history as below Rec: -No plan for ischemic evaluation Orthostatic lightheadedness Experienced today with walking to bathroom Mildly hypotensive Cr bumped 11/06 In setting of over diuresis with IV Lasix Rec: -Stop IV Lasix Acute diastolic congestive heart failure Trigger: suspect hypertension not adequately controlled NTproBNP 429 Echocardiogram 11/06/22: EF 69%, grade 2 diastolic dysfunction, no LV wall motion abnormalities, RV probably mildly dilated with mildly reduced RVSF, mild aortic regurgitation CXR shows no pleural effusion/pulmonary vascular congestion. Appears fairly euvolemic on exam after IV Lasix 20mg BID x 8 doses Cr bump /12 from admit 1.13-->1.34 and now mildly hypotensive Loop diuretic naive Rec: -Diuretic: Stop IV Lasix; transition to PO Lasix 20mg daily starting 11/08 -2gm Na diet and 2L fluid restriction. HF nurse educator consulted. -Follow up with PCP or personal warp tester in 1-2 weeks Coronary artery disease History of multiple stents and subsequent coronary artery bypass graft x 3 (CHAVEZ to Diag, SVG to OM1, SVG to PDA) at [facility] in [place] 10/2016 Left heart catheterization prior to coronary artery bypass graft noted for ISR Cx stent, occluded/ISR LAD, and high grade RCA stenosis Preserved left ventricular systolic function No ischemic evaluation since coronary artery bypass graft Denies anginal chest pain that he had prior to stents/coronary artery bypass graft Rec: -Continue low dose ASA, statin Essential hypertension Occasionally elevated, now borderline hypotensive this morning suspect in setting of over diuresis Home regimen: losartan 50mg daily - held today Has been diuresed with IV Lasix since admit Rec: -Agree with holding losartan today; plan on resuming prior to discharge Dr. Jeffries to see patient and final recommendations to follow. Subjective Reason for Consultation: Asked to see for chest pain and lightheadedness History of Present Illness: Tristin Powell is a 82 y.o. male with a history of chronic pain, COPD, prostate cancer s/p seed implantation, right carpal tunnel release, GERD, hypertension, hypercholesterolemia, HFpEF, coronary arterydisease s/p multiple stents with subsequent coronary artery bypass graft x 3 in 2016, and peripheral arterial disease s/p left fem-pop 2018 with associated left mid foot amputation who presents to [facility] 11/03/22 with persistent pneumonia despite 2 rounds of PO antibiotics, as well as diffuse BLLE edema and swelling. On admit diuresed with IV Lasix. Complained of chest pain and orthostatic lightheadedness 11/07 for which cardiology was consulted. Patient treated as outpatient for pneumonia and seen at [facility] ED on 10/30 for fever, persistent frequent cough with associated chest pain, n/v, decrease appetite, weakness, and mild dyspnea. Per patient was told by PCP that there was also Fluid on his lungs . Normal BNP at [facility] ED. Discharged on ATB. Since admit he feels better but still not at baseline. His presenting bilateral LE pretibial edema that he has had for ~ 4-6 months has resolved. This morning he got up to walk to bathroom and was mildly lightheaded. Noted localized left side chest pain today reproducible with deep breath. Denies any anginal chest pain that he had prior to stents/coronary artery bypass graft. Not following routinely with his warp tester. Imaging: I independently reviewed the EKG and agree with the interpretation(s) with the following comments. SR, isolated flat T wave lead III; ECG today with chest pain: Sr with occasional PVC, TWA lead III,aVF EKG 12-lead Final Result by Interface, Lab Results In [place] [facility] (11/03/2022 1658) Echocardiogram complete w contrast Final Result by Obdulio Mack MD (11/06/2022 1315) Echocardiogram complete Final Result by Emmanuel Connor MD (10/08/2018 1726) Cardiac Catheterization Final Result by Ben Hahn MD (09/05/2018 1614) Review of Systems: The following system(s) were reviewed and negative. Pertinent positive and negative findings are noted in the HPI. [x] Const [x] Eyes [x] ENT [x] Resp [] CV [x] GI [x] [x] Neuro [x] Musc [x] Skin [x] Psych [x] Endo [x] Allergy [x] Heme/Lymph Past Medical History: Diagnosis Date Arthritis Avascular necrosis of bone of hip (HCC) Claudication (HCC) Coronary artery disease Herpes zoster Hyperlipidemia Hypertension PAD (peripheral artery disease) ([facility]) 01/21/2022 Prostate cancer (HCC) Vascular disease Past Surgical History: Procedure Laterality Date 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/08/2018 Procedure: LEFT MIDFOOT AMPUTATION; Surgeon: Flynn Mann DPM; Location: [facility]; Service: Podiatry ANKLE SURGERY Left BYPASS PERONEAL FEMORAL Right 09/07/2018 Procedure: BYPASS PERONEAL FEMORAL, RIGHT SAPHENOUS VEIN HARVEST, COMPLETION ANGIOGRAM; Surgeon: Mohsen Sarabia MD; Location: [facility]; Service: Cardiovascular CARDIAC CATHETERIZATION Left 09/05/2018 Procedure: Angio Lower Extremity; Surgeon: Ben Hahn MD; 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; Service: Cardiovascular CARDIAC SURGERY 2017 triple bypass EGD N/A 10/10/2018 Procedure: ESOPHAGOGASTRODUODENOSCOPY; Surgeon: Ben Jensen MD; Location: [facility]; Service: Gastroenterology EYE SURGERY Right 2015 FOOT SURGERY ORTHOPEDIC SURGERY STENT PLACEMENT Family History Problem Relation Age of Onset No Known Problems Mother Heart disease Father Prostate cancer Brother Cancer Paternal Aunt Social History Tobacco Use Smoking Status Never Smokeless Tobacco Never Allergies: Doxycycline Current Facility-Administered Medications Medication Dose Route Frequency Provider Last Rate Last Admin aluminum-magnesium hydroxide-simethicone (MAALOX PLUS) 200-200-20 mg/5 mL suspension 30 mL 30 mL Oral Q4H PRN Duke Claros MD aspirin chewable tablet 81 mg 81 mg Oral Daily Duke Claros MD 81 mg at 11/07/22 0859 atorvastatin (LIPITOR) tablet 40 mg 40 mg Oral Nightly Duke Claros MD 40 mg at 11/06/222019 benzonatate (TESSALON) capsule 100 mg 100 mg Oral TID Jass Barboza MD 100 mg at 11/07/22 0859 budesonide-formoteroL (SYMBICORT) 160-4.5 mcg/actuation inhaler 2 puff 2 puff Inhalation BID Duke Claros MD 2 puff at 11/07/22 0904 And tiotropium bromide (SPIRIVA RESPIMAT) 2.5 mcg/actuation inhaler 2 puff 2 puff Inhalation Daily Duke Claros MD 2 puff at 11/07/22 0904 cefePIMe-dextrose (MAXIPIME) 2 gram/50 mL IVPB 2,000 mg 2,000 mg Intravenous Q12H Duke Claros MD Stopped at 11/06/22 2319 [START ON 11/08/2022] furosemide (LASIX) tablet 20 mg 20 mg Oral Daily Kory Mei, KAMARI ipratropium-albuteroL (DUO-NEB) 0.5-2.5 mg/3 ml nebulizer solution 3 mL 3 mL Inhalation Q6H SADIA Duke Claros MD 3 mL at 11/07/22 0828 ipratropium-albuteroL (DUO-NEB) 0.5-2.5 mg/3 ml nebulizer solution 3 mL 3 mL Inhalation Q4H PRN Duke Claros MD 3 mL at 11/04/222128 metoprolol tartrate (LOPRESSOR) tablet 50 mg 50 mg Oral BID Duke Claros MD 50 mg at naloxone (NARCAN) injection 0.1 mg 0.1 mg Intravenous PRN Jass Barboza MD And naloxone (NARCAN) injection 0.4 mg 0.4 mg Intravenous PRN Jass Barboza MD ondansetron (ZOFRAN-ODT) disintegrating tablet 4 mg 4 mg Oral Q6H PRN Duke Claros MD 4 mg at11/07/22 0712 Or ondansetron (ZOFRAN) injection 4 mg 4 mg Intravenous Q6H PRN Duke Claros MD 4 mg at oxyCODONE-acetaminophen (PERCOCET) 5-325 mg per tablet 1 tablet 1 tablet Oral Q4H PRN Jass Barboza MD 1 tablet at 11/06/22 2242 pantoprazole (PROTONIX) EC tablet 40 mg 40 mg Oral BID Duke Claros MD 40 mg at 11/07/22 0859 polyethylene glycol (MIRALAX) powder 17 g 17 g Oral Daily Jass Barboza MD 17 g at 11/07/22 0900 rivaroxaban (XARELTO) tablet 2.5 mg 2.5 mg Oral BID Duke Claros MD 2.5 mg at 11/07/22 0859 sodium chloride (OCEAN) 0.65 % nasal spray 1 spray 1 spray Each Nare PRN Jass Barboza MD 1 sprayat 11/06/22 0835 sodium chloride (PF) (NS) flush 5 mL 5 mL Intravenous PRN Aurelia Tillman CNP And sodium chloride 0.9% (NS) 0-150 mL/hr Intravenous PRN Aurelia Tillman CNP Stopped at 11/05/22 2324 sodium chloride (PF) (NS) flush 5 mL 5 mL Intravenous PRN Duke Claros MD And sodium chloride (PF) (NS) flush 5 mL 5 mL Intravenous Q8H SADIA Duke Claros MD 5 mL at 11/07/22 0625 And sodium chloride 0.9% (NS) 0-150 mL/hr Intravenous PRN Duke Claros MD Stopped at 11/04/22 1115 zolpidem (AMBIEN) tablet 10 mg 10 mg Oral Nightly PRN Meir Ward MD 10 mg at 11/05/22 2135 Objective: Physical Examination: BP 100/62 Pulse 87 Temp 99.4 F (37.4 C) (Oral) Resp 16 Ht 6' 1 Wt 113.4 kg (250 lb) SpO2 96% BMI 32.98 kg/m Constitutional: Alert, acutely ill appearing, not in distress.? Eyes: Conjunctivae/corneas clear. Lungs: Clear to auscultation but mildly diminished, no wheezes, rales or rhonchi. Cardiovascular: Normal rate and regular rhythm, S1 and S2 normal, no murmurs noted, trace right ankle edema, no JVD. Abdomen: Soft, nontender Skin: Warm and dry Musculoskeletal: Mild generalized weakness Psych: Oriented to time, person, and place; appropriate mood. No results found for: CHOL, LDLCALC, LDLDIRECT, TRIG, HDL Serum creatinine: 1.34 mg/dL (H) 11/07/22 0629 Estimated creatinine clearance: 47.2 mL/min (A) Associated attestation - Mervin, Juvencio Dawn MD - 11/07/2022 11:17 AM EDT Images from the original note were not included. The patient was seen and examined by me, and all findings documented by the Nurse Practitioner below were verified. The diagnostic testing results, relevant laboratory data, and relevant radiology images were reviewed, and I independently reviewed the ECG tracings. In addition, for this patient I re viewed the following supplementary information: prior progress notes and consultations, prior cardiac testing results, and independent review of telemetry tracings. My total involvement accounted forthe majority of time devoted to this consultation. I agree with assessment and plans below. He has been admitted for several days and then developed transient chest tightness which is nonspecific. Overall flat troponin elevation which is down trending. He does have underlying pneumonia. Recommend: There is really no evidence of acute syndrome, I would attribute his discomfort to his pneumonia and just continue medical therapy for his known CAD. His orthostatic lightheadedness may be due to overdiuresis, so agree with transitioning IV Lasix back to oral dosing. Agree with holding home losartan and resuming 1 to 2 days if BP improves. All questions were answered. We will be happy to reevaluate the patient as needed for any recurrent cardiac issues or concerns. Jaziel Jeffries MD, [facility] Inpatient Rounding [phone] Office [phone] * Aaron Fenton DPM - 11/07/2022 7:07 AM EDTAssociated Order(s): IP CONSULT TO PODIATRY Critical Limb Care Consult Note Tristin Powell AGE: 82 y.o. GENDER: male : 1940 EPISODE DATE: 11/03/2022 Assessment/Plan: Tristin Powell is an 82 year old male with a history of Prostate Cancer, CAD, PAD (left foot amputation 2018), Hypertension, HFpEF who presented to [facility] 11/03/2022 with persistent pneumonia despite #2 rounds of PO antibiotics, as well as diffuse bilateral LE edema and swelling. Troponin 117, BNP 429, CRP 36. CT-PE: no pulmonary embolism, dense LLL consolidation. Posterior tibial tendinitis right: pt seen and evaluated. 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 He has some rubbing along the medial ankle and pressure build up on the lateral ankle. He will need to go to [facility] for an adjustment to help prevent the valgus deformity in the heel from getting worse. The right side pain is due to similar issues and will need arch support to address this. He did have some inserts but did not wear them due to tightness inthe shoe. Educated him on how to make more room in the shoe for his insert. He will try this as well. I did refer him to Dashawn Orosco DPM for f/u as he is closer to patient's home. Pt can call with any issues as well. Subjective: Chief Complaint Patient presents with Foot Injury Shortness of Breath HISTORY of PRESENT ILLNESS HPI Tristin Powell is a 82 y.o. male who is seen today for evaluation of right and left foot pain. Pain Timing/Severity: constant, during ambulation and with shoe/brace use. Quality of pain: aching and sharp Severity of pain: 5 / 10 Modifying Factors: PAD Associated Signs/Symptoms: none PAST MEDICAL HISTORY Past Medical History: Diagnosis Date Arthritis Avascular necrosis of bone of hip (HCC) Claudication (HCC) Coronary artery disease Herpes zoster Hyperlipidemia Hypertension PAD (peripheral artery disease) (HCC) 01/21/2022 Prostate cancer (HCC) Vascular disease PAST SURGICAL HISTORY Past Surgical History: Procedure Laterality Date 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/08/2018 Procedure: LEFT MIDFOOT AMPUTATION; Surgeon: Flynn Mann DPM; Location: [facility]; Service: Podiatry ANKLE SURGERY Left BYPASS PERONEAL FEMORAL Right 09/07/2018 Procedure: BYPASS PERONEAL FEMORAL, RIGHT SAPHENOUS VEIN HARVEST, COMPLETION ANGIOGRAM; Surgeon: Mohsen Sarabia MD; Location: [facility]; Service: Cardiovascular CARDIAC CATHETERIZATION Left 09/05/2018 Procedure: Angio Lower Extremity; Surgeon: Ben Hahn MD; 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; Service: Cardiovascular CARDIAC SURGERY 2017 triple bypass EGD N/A 10/10/2018 Procedure: ESOPHAGOGASTRODUODENOSCOPY; Surgeon: Ben Jensen MD; Location: [facility]; Service: Gastroenterology EYE SURGERY Right 2015 FOOT SURGERY ORTHOPEDIC SURGERY STENT PLACEMENT FAMILY HISTORY Family History Problem Relation Age of Onset No Known Problems Mother Heart disease Father Prostate cancer Brother Cancer Paternal Aunt SOCIAL HISTORY Social History Tobacco Use Smoking status: Never Smokeless tobacco: Never Vaping Use Vaping Use: Never used Substance Use Topics Alcohol use: Not Currently Drug use: Never ALLERGIES Allergies Allergen Reactions Doxycycline Elevated blood pressure, GI intolerance/ nausea/vomiting MEDICATIONS No current facility-administered medications on file prior to encounter. Current Outpatient Medications on File Prior to Encounter Medication Sig Dispense Refill albuterol (PROVENTIL) 2.5 mg /3 mL (0.083 %) nebulizer solution Take 3 mL (2.5 mg total) by nebulization every 6 (six) hours as needed for wheezing . 12 mL 2 albuterol 90 mcg/actuation inhaler Inhale 2 (two) puffs every 4 (four) hours as needed for wheezing, shortness of breath or cough . 54 g 3 aspirin 81 mg cap Take 1 (one) capsule (81 mg total) by mouth daily . atorvastatin (LIPITOR) 40 MG tablet Take 0.5 (one-half) tablet (20 mg total) by mouth 2 (two) timesa day 1/2 tab . ergocalciferol (ERGOCALCIFEROL) 1,250 mcg (50,000 unit) capsule Take 1 (one) capsule (50,000 Units total) by mouth once a week . fluticasone (FLONASE) 50 mcg/actuation nasal spray 2 (two) sprays by Each Nare route daily . 16 g 12 frdsuertaxb-zmksvrqpo-qzvdikjx (Trelegy Ellipta) 100-62.5-25 mcg DsDv 1 puff every night at bedtime. ipratropium-albuteroL (DUO-NEB) 0.5-2.5 mg/3 ml nebulizer Take 3 mL by nebulization 3 (three) timesa day . losartan (COZAAR) 50 MG tablet Take 1 (one) tablet (50 mg total) by mouth daily . metoprolol tartrate (LOPRESSOR) 50 MG tablet Take 1 (one) tablet (50 mg total) by mouth 2 (two) times a day . omeprazole (PRILOSEC) 20 MG capsule Take 1 (one) capsule (20 mg total) by mouth daily . oxyCODONE-acetaminophen (PERCOCET) 5-325 mg per tablet Take 1 (one) tablet by mouth every 6 (six) hours as needed for pain . polyethylene glycol (MIRALAX) 17 gram powder Take 17 (seventeen) g by mouth daily . rivaroxaban (XARELTO) 2.5 mg tablet Take 1 (one) tablet (2.5 mg total) by mouth 2 (two) times a day. ammonium lactate (LAC-HYDRIN) 12 % lotion Apply topically 2 (two) times a day . 400 g 2 gabapentin (NEURONTIN) 100 MG capsule Take 1 (one) capsule (100 mg total) by mouth every 8 (eight) hours . tiotropium bromide (SPIRIVA RESPIMAT) 2.5 mcg/actuation Mist Inhale 2 (two) puffs daily Start: 01/22/22. (Patient not taking: Reported on 02/25/2022 .) 4 g 2 zolpidem (AMBIEN) 10 mg tablet Take 1 (one) tablet (10 mg total) by mouth nightly as needed . REVIEW OF SYSTEMS Pertinent items are noted in HPI. Objective: BP 103/62 Pulse 86 Temp 99 F (37.2 C) (Oral) Resp 16 Ht 6' 1 Wt 113.4 kg (250 lb) AcA136% BMI 32.98 kg/m PHYSICAL EXAM General: The patient is in no acute distress. Mental status: Patient is appropriate, is oriented to place and plan of care. Vascular: Tibialis posterior pulse: dopplerable and Dorsalis pedis pulse: dopplerable Neurological: alert, oriented, normal speech, no focal findings or movement disorder noted Dermatologic exam: Visual inspection of the periwound skin reveals: discoloration and edema M/S: ROM decreased to b/l ankles with contracture noted. There is a valgus deformity b/l with pes planus deformity to the right side. Decreased PT function noted on right. Small blister formation to the left medial posterior medial malleolar area. Superficial. All active wounds listed below with today's date are evaluated Electronically signed by Aaron Fenton DPM 11/07/2022 at 7:08 AM ote * Lyn Cerrato, OT - 11/04/2022 1:51 PM EST Occupational Therapy OCCUPATIONAL THERAPY EVALUATION Skilled Therapy Needs After Discharge Anticipate Resolution of Current Assessment Limitations Including: Pain, Mechanical Barriers Are Skilled Therapy Services Needed After Discharge: No DME Recommendation: None Rehab Potential: Excellent Outcomes Measures Prior Function Daily Activity Raw Score: 24 Prior Function Daily Activity % Impaired: 0% AM-PAC Daily Activity Raw Score: 21 AM-PAC Daily Activity % Impaired: 32.79% Occupational Therapy Assessment The patient's current functional participation deficits are LE dressing, bathing, toileting, driving, functional mobility, home management, meal preparation. This reduced independence will limit their life roles of premorbid level individual, community member, family member. The patient's co morbidities do affect patient performance in the above activities and roles. The performance deficits are a result of musculoskeletal, cardiopulmonary impairment(s) in generalized debility, global systems including balance, acitvity tolerance, pain, (no), and pain intolerance. 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 The patient's awareness of own capacity and performance is a geek squad manager to return to prior level of function. During the assessment, minimal to moderate modification of task was required and limited treatment options were identified in the plan of care. This consultation required expanded review of the medical and therapy history. Activity Tolerance Activity Tolerance: Tolerates 10 - 20 min activity with multiple rests (SPO2 96% on RA) Therapy Precautions Orthotic Devices: Yes Lower Extremity: Left, AFO, Prosthesis Weight Bearing Status: X LUE: Wt bearing as tolerated (ROMAT) General Rehab Precautions: Fall risk (mild) Cognition Overall Cognitive Status: Within Functional Limits Arousal/Alertness: Appropriate responses to stimuli Orientation Level: Oriented X4 Executive functioning: WFL Safety Judgment: Good awareness of safety precautions Problem Solving: Able to problem solve independently Attention: Attends to distracted environment, Attends to quiet environment Hearing Status: WFL Social Interaction: Cooperative, Appropriate Comments: pt with no command following deficits ADL Lower Body Dressing: Supervision (to don shoes and orthosis sitting EOB) Functional Mobility: Stand by assist, Contact guard assist (no device, in saab) Bed Mobility Supine to Sit: Modified independent, Head of bed elevated Sit to Supine: (pt sitting EOB at end of session) Functional Transfers Sit to Stand: Contact guard assist (from EOB) Additional Assessment Details pt reporting decreased endurance with activity. pt reports no lightheadedness or dizziness throughout. pt exhibiting some SOB with activity, SPO2 WNL. pt wishing to sit EOB as opposed to in chair at end of session. Home Living Obtained Home Living and PLOF info from: Patient Lives With: Alone Type of Home: House Home Layout: One level Steps to enter home: Yes Rails to enter home: 2 rails Number of stairs to enter home: 2 Bathroom Shower/Tub: Walk-in shower Bathroom Equipment: Shower chair, Hand-held showerhead Mobility Equipment: Wheeled walker, Cane, Crutches, Wheelchair - manual Additional Objective Details - Home Living: Patient reports ambulating independently without AD when L AFO / prothesis donned; otherwise, using man w/c for mobility. Reports decreased mobility secondary to illness recently Prior Level of Function Level of [place] - Transfers/Ambulation/Mobility: Independent with household ambulation, Independent with community ambulation Level of [place] - ADLs: Independent Level of [place] - Homemaking: Independent Driving: Patient drives Past Medical History: Diagnosis Date Arthritis Avascular necrosis of bone of hip ([facility]) Claudication ([facility]) Coronary artery disease Herpes zoster Hyperlipidemia Hypertension PAD (peripheral artery disease) ([facility]) 01/21/2022 Prostate cancer ([facility]) Vascular disease Past Surgical History: Procedure Laterality Date 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/08/2018 Procedure: LEFT MIDFOOT AMPUTATION; Surgeon: Flynn Mann DPM; Location: [facility]; Service: Podiatry ANKLE SURGERY Left BYPASS PERONEAL FEMORAL Right 09/07/2018 Procedure: BYPASS PERONEAL FEMORAL, RIGHT SAPHENOUS VEIN HARVEST, COMPLETION ANGIOGRAM; Surgeon: Mohsen Sarabia MD; Location: [facility] OR; Service: Cardiovascular CARDIAC CATHETERIZATION Left 09/05/2018 Procedure: Angio Lower Extremity; Surgeon: Ben Hahn MD; 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 This note stands as the current Discharge Summary upon patient discharge from the hospital or completion of Occupational Therapy Plan of Care. * Neetu Thompson RN - 11/04/2022 11:08 AM ESTAssociated Order(s): IP CONSULT TO CARDIOLOGY - PERIPHERAL VASC DISEASE Information only. Cardiology consult completed by Aminah Calixto CNP 3... See note for details. * Gustavo Macdonald CNP - 11/04/2022 6:50 AM ESTAssociated Order(s): IP CONSULT TO ORTHOPEDIC SURGERY CONSULT NOTE Patient Name: Tristin Powell Admit Date: [id number] MR #: [id number] : 1940 Physicians: Flash Lovelace MD (Family); No ref. provider found (Referring) Dr. Harris Messina (orthopedic surgery) Assessment and Plan: Other Hematoma of arm, left, initial encounter Assessment & Plan 82 yo RHD male with left upper arm hematoma - D/W Dr. Mackenzie - XR reviewed; negative for fracture or dislocation - VSS. Afebrile. WBC 8.06 / CRP 35.4 / ESR 30 - suspect hematoma in setting of xarelto. Biceps tendon appears intact on clinical exam - compartments soft and compressible. No indication for surgical intervention - recommend supportive care with rest, ice, compression, elevation as able - WBAT/ROMAT LUE - follow up with PCP or Dr. Messina as needed if symptoms persist Chief Complaint/Reason for Visit: possible left biceps tendon rupture vs hematoma History of Present Illness: Tristin Powell is a 82 y.o. right hand dominant male with pmh of PAD on xarelto, CAD, HLD, HTN, prostate cancer presenting to [facility] 11/03 with CAP. Patient also reports left upperarm pain. He states that he was pushing a small table with his left arm ~3 days ago when he felt a twist in his upper arm. He didn't think much of it initially until several hours later when he deve loped pain and swelling, followed by bruising over his left biceps. He reports the pain as mild andendorses some improvement in the swelling. He denies any additional falls or trauma. He denies numbness or tingling. He denies any additional orthopedic concerns/complaints at this time. History: Past Medical History: Diagnosis Date Arthritis Avascular necrosis of bone of hip ([facility]) Claudication ([facility]) Coronary artery disease Herpes zoster Hyperlipidemia Hypertension PAD (peripheral artery disease) ([facility]) 01/21/2022 Prostate cancer ([facility]) Vascular disease Past Surgical History: Procedure Laterality Date 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/08/2018 Procedure: LEFT MIDFOOT AMPUTATION; Surgeon: Flynn Mann DPM; Location: [facility]; Service: Podiatry ANKLE SURGERY Left BYPASS PERONEAL FEMORAL Right 09/07/2018 Procedure: BYPASS PERONEAL FEMORAL, RIGHT SAPHENOUS VEIN HARVEST, COMPLETION ANGIOGRAM; Surgeon: Mohsen Sarabia MD; Location: [facility]; Service: Cardiovascular CARDIAC CATHETERIZATION Left 09/05/2018 Procedure: Angio Lower Extremity; Surgeon: Ben Hahn MD; 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; Service: Cardiovascular CARDIAC SURGERY 2017 triple bypass EGD N/A 10/10/2018 Procedure: ESOPHAGOGASTRODUODENOSCOPY; Surgeon: Ben Jensen MD; Location: [facility]; Service: Gastroenterology EYE SURGERY Right 2015 FOOT SURGERY ORTHOPEDIC SURGERY STENT PLACEMENT Family History Problem Relation Age of Onset No Known Problems Mother Heart disease Father Prostate cancer Brother Cancer Paternal Aunt Social History Socioeconomic History Marital status: Tobacco Use Smoking status: Never Smokeless tobacco: Never Vaping Use Vaping Use: Never used Substance and Sexual Activity Alcohol use: Not Currently Drug use: Never Sexual activity: Not Currently Allergy Information: I have reviewed the patient's allergies. Doxycycline Home Medications: Outpatient Medications as of 11/04/2022 Medication Sig albuterol (PROVENTIL) 2.5 mg /3 mL (0.083 %) nebulizer solution Take 3 mL (2.5 mg total) by nebulization every 6 (six) hours as needed for wheezing . albuterol 90 mcg/actuation inhaler Inhale 2 (two) puffs every 4 (four) hours as needed for wheezing, shortness of breath or cough . aspirin 81 mg cap Take 1 (one) capsule (81 mg total) by mouth daily . atorvastatin (LIPITOR) 40 MG tablet Take 0.5 (one-half) tablet (20 mg total) by mouth 2 (two) timesa day 1/ tab . ergocalciferol (ERGOCALCIFEROL) 1,250 mcg (50,000 unit) capsule Take 1 (one) capsule (50,000 Units total) by mouth once a week . fluticasone (FLONASE) 50 mcg/actuation nasal spray 2 (two) sprays by Each Nare route daily . lcnrlicgfsp-arbldawyv-xccooqtm (Trelegy Ellipta) 100-62.5-25 mcg DsDv 1 puff every night at bedtime. losartan (COZAAR) 50 MG tablet Take 1 (one) tablet (50 mg total) by mouth daily . metoprolol tartrate (LOPRESSOR) 50 MG tablet Take 1 (one) tablet (50 mg total) by mouth 2 (two) times a day . omeprazole (PRILOSEC) 20 MG capsule Take 1 (one) capsule (20 mg total) by mouth daily . oxyCODONE-acetaminophen (PERCOCET) 5-325 mg per tablet Take 1 (one) tablet by mouth every 6 (six) hours as needed for pain . polyethylene glycol (MIRALAX) 17 gram powder Take 17 (seventeen) g by mouth daily . rivaroxaban (XARELTO) 2.5 mg tablet Take 1 (one) tablet (2.5 mg total) by mouth 2 (two) times a day. ammonium lactate (LAC-HYDRIN) 12 % lotion Apply topically 2 (two) times a day . gabapentin (NEURONTIN) 100 MG capsule Take 1 (one) capsule (100 mg total) by mouth every 8 (eight) hours . zolpidem (AMBIEN) 10 mg tablet Take 1 (one) tablet (10 mg total) by mouth nightly as needed . Review of Systems: The following system(s) were reviewed and pertinent findings noted: Constitutional: negative fevers, negative chills MSK: positive left upper arm pain Neuro: negative numbness, negative tingling Physical Examination: Vital Signs: BP (!) 162/74 (BP Location: Right arm, Patient Position: Sitting) Pulse 93 Temp 98.1 F (36.7 C)(Oral) Resp (!) 19 Ht 6' 1 Wt 113.4 kg (250 lb) SpO2 93% BMI 32.98 kg/m Constitutional: Appears well, no distress Cardiovascular: 2+ radial pulse with BCR to all fingers in left upper extremity Neurological: LUE: SILT to all fingers. R/U/M/Ax nerves all grossly intact Integumentary: ecchymosis to distal biceps/upper arm. Skin otherwise intact over shoulder, elbow, and wrist with no open wounds. Musculoskeletal: LUE: Able to wiggle all fingers. Full aROM left elbow. Negative hook test. Mild swelling and TTP over left distal biceps. Compartments soft and compressible Associated attestation - Harris Messina MD - 11/04/2022 1:28 PM EST I saw and evaluated the patient on 11/04/2022. I have reviewed the orthopedic consultation as well as the relevant radiographic studies. I have been asked to see this patient by Dr.William Oscar Claros MD. He sustained a injury to his left upper arm 3 days ago. He does have some swelling and bruising.His compartments are soft. There are no fractures or dislocations. It does not appear as though he has an obvious distal biceps rupture. Regardless, at his age group I would not recommend definitive fixation. He may use his arm as he tolerates. He should follow-up with his primary care physician. documented in this [id number] Consult note* Kory Mei CNP - 11/07/2022 10:11 AM EDTAssociated Order(s): IP CONSULT TO CARDIOLOGY General Cardiology Inpatient Consult Heart & Vascular [facility] 11/07/[address] 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 Localized left sided chest pain with deep breath only in setting of pneumonia/cough D-dimer not checked EKG without acute ischemic changes. Admit echo with preserved left ventricular systolic function and no wall motion abnormalities Secondary causes for troponin elevation could include: renal insufficiency Coronary artery disease history as below Rec: -No plan for ischemic evaluation Orthostatic lightheadedness Experienced today with walking to bathroom Mildly hypotensive Cr bumped 11/06 In setting of over diuresis with IV Lasix Rec: -Stop IV Lasix Acute diastolic congestive heart failure Trigger: suspect hypertension not adequately controlled NTproBNP 429 Echocardiogram 11/06/22: EF 69%, grade 2 diastolic dysfunction, no LV wall motion abnormalities, RV probably mildly dilated with mildly reduced RVSF, mild aortic regurgitation CXR shows no pleural effusion/pulmonary vascular congestion. Appears fairly euvolemic on exam after IV Lasix 20mg BID x 8 doses Cr bump 11/06 from admit 1.13-->1.34 and now mildly hypotensive Loop diuretic naive Rec: -Diuretic: Stop IV Lasix; transition to PO Lasix 20mg daily starting 11/08 -2gm Na diet and 2L fluid restriction. HF nurse educator consulted. -Follow up with PCP or personal warp tester in 1-2 weeks Coronary artery disease History of multiple stents and subsequent coronary artery bypass graft x 3 (CHAVEZ to Diag, SVG to OM1, SVG to PDA) at [facility] 10/2016 Left heart catheterization prior to coronary artery bypass graft noted for ISR Cx stent, occluded/ISR LAD, and high grade RCA stenosis Preserved left ventricular systolic function No ischemic evaluation since coronary artery bypass graft Denies anginal chest pain that he had prior to stents/coronary artery bypass graft Rec: -Continue low dose ASA, statin Essential hypertension Occasionally elevated, now borderline hypotensive this morning suspect in setting of over diuresis Home regimen: losartan 50mg daily - held today Has been diuresed with IV Lasix since admit Rec: -Agree with holding losartan today; plan on resuming prior to discharge Dr. Jeffries to see patient and final recommendations to follow. Subjective Reason for Consultation: Asked to see for chest pain and lightheadedness History of Present Illness: Tristin Powell is a 82 y.o. male with a history of chronic pain, COPD, prostate cancer s/p seed implantation, right carpal tunnel release, GERD, hypertension, hypercholesterolemia, HFpEF, coronary arterydisease s/p multiple stents with subsequent coronary artery bypass graft x 3 in 2016, and peripheral arterial disease s/p left fem-pop 2018 with associated left mid foot amputation who presents to [facility] 11/03/22 with persistent pneumonia despite 2 rounds of PO antibiotics, as well as diffuse BLLE edema and swelling. On admit diuresed with IV Lasix. Complained of chest pain and orthostatic lightheadedness 11/07 for which cardiology was consulted. Patient treated as outpatient for pneumonia and seen at [facility] on 10/30 for fever, persistent frequent cough with associated chest pain, n/v, decrease appetite, weakness, and mild dyspnea. Per patient was told by PCP that there was also Fluid on his lungs . Normal BNP at [facility] ED. Discharged on ATB. Since admit he feels better but still not at baseline. His presenting bilateral LE pretibial edema that he has had for ~ 4-6 months has resolved. This morning he got up to walk to bathroom and was mildly lightheaded. Noted localized left side chest pain today reproducible with deep breath. Denies any anginal chest pain that he had prior to stents/coronary artery bypass graft. Not following routinely with his warp tester. Imaging: I independently reviewed the EKG and agree with the interpretation(s) with the following comments. SR, isolated flat T wave lead III; ECG today with chest pain: Sr with occasional PVC, TWA lead III,aVF EKG 12-lead Final Result by Interface, Lab Results In [place] [facility] (11/03/2022 1658) Echocardiogram complete w contrast Final Result by Obdulio Mack MD (11/06/2022 1315) Echocardiogram complete Final Result by Emmanuel Connor MD (10/08/2018 1726) Cardiac Catheterization Final Result by Ben Hahn MD (09/05/2018 1614) Review of Systems: The following system(s) were reviewed and negative. Pertinent positive and negative findings are noted in the HPI. [x] Const [x] Eyes [x] ENT [x] Resp [] CV [x] GI [x] [x] Neuro [x] Musc [x] Skin [x] Psych [x] Endo [x] Allergy [x] Heme/Lymph Past Medical History: Diagnosis Date Arthritis Avascular necrosis of bone of hip ([facility]) Claudication ([facility]) Coronary artery disease Herpes zoster Hyperlipidemia Hypertension PAD (peripheral artery disease) ([facility]) 01/21/2022 Prostate cancer ([facility]) Vascular disease Past Surgical History: Procedure Laterality Date 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/08/2018 Procedure: LEFT MIDFOOT AMPUTATION; Surgeon: Flynn Mann DPM; Location: [facility]; Service: Podiatry ANKLE SURGERY Left BYPASS PERONEAL FEMORAL Right 09/07/2018 Procedure: BYPASS PERONEAL FEMORAL, RIGHT SAPHENOUS VEIN HARVEST, COMPLETION ANGIOGRAM; Surgeon: Mohsen Sarabia MD; Location: [facility]; Service: Cardiovascular CARDIAC CATHETERIZATION Left 09/05/2018 Procedure: Angio Lower Extremity; Surgeon: Ben Hahn MD; 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; Service: Cardiovascular CARDIAC SURGERY 2017 triple bypass EGD N/A 10/10/2018 Procedure: ESOPHAGOGASTRODUODENOSCOPY; Surgeon: Ben Jensen MD; Location: [facility]; Service: Gastroenterology EYE SURGERY Right 2015 FOOT SURGERY ORTHOPEDIC SURGERY STENT PLACEMENT Family History Problem Relation Age of Onset No Known Problems Mother Heart disease Father Prostate cancer Brother Cancer Paternal Aunt Social History Tobacco Use Smoking Status Never Smokeless Tobacco Never Allergies: Doxycycline Current Facility-Administered Medications Medication Dose Route Frequency Provider Last Rate Last Admin aluminum-magnesium hydroxide-simethicone (MAALOX PLUS) 200-200-20 mg/5 mL suspension 30 mL 30 mL Oral Q4H PRN Duke Claros MD aspirin chewable tablet 81 mg 81 mg Oral Daily Duke Claros MD 81 mg at 11/07/22 08 atorvastatin (LIPITOR) tablet 40 mg 40 mg Oral Nightly Duke Claros MD 40 mg at 11/06/222019 benzonatate (TESSALON) capsule 100 mg 100 mg Oral TID Jass Barboza MD 100 mg at 11/07/22 08 budesonide-formoteroL (SYMBICORT) 160-4.5 mcg/actuation inhaler 2 puff 2 puff Inhalation BID Duke Claros MD 2 puff at 11/07/22 0904 And tiotropium bromide (SPIRIVA RESPIMAT) 2.5 mcg/actuation inhaler 2 puff 2 puff Inhalation Daily Duke Claros MD 2 puff at 11/07/22 0904 cefePIMe-dextrose (MAXIPIME) 2 gram/50 mL IVPB 2,000 mg 2,000 mg Intravenous Q12H Duke Claros MD Stopped at 11/06/22 2319 [START ON 11/08/2022] furosemide (LASIX) tablet 20 mg 20 mg Oral Daily Kory Mei, KAMARI ipratropium-albuteroL (DUO-NEB) 0.5-2.5 mg/3 ml nebulizer solution 3 mL 3 mL Inhalation Q6H SADIA Duke Claros MD 3 mL at 11/07/22 0828 ipratropium-albuteroL (DUO-NEB) 0.5-2.5 mg/3 ml nebulizer solution 3 mL 3 mL Inhalation Q4H PRN Duke Claros MD 3 mL at 11/04/229 metoprolol tartrate (LOPRESSOR) tablet 50 mg 50 mg Oral BID Duke Claros MD 50 mg at naloxone (NARCAN) injection 0.1 mg 0.1 mg Intravenous PRN Jass Barboza MD And naloxone (NARCAN) injection 0.4 mg 0.4 mg Intravenous PRN Jass Barboza MD ondansetron (ZOFRAN-ODT) disintegrating tablet 4 mg 4 mg Oral Q6H PRN Duke Claros MD 4 mg at11/07/22 0712 Or ondansetron (ZOFRAN) injection 4 mg 4 mg Intravenous Q6H PRN Duke Claros MD 4 mg at oxyCODONE-acetaminophen (PERCOCET) 5-325 mg per tablet 1 tablet 1 tablet Oral Q4H PRN Jass Barboza MD 1 tablet at 11/06/22 2242 pantoprazole (PROTONIX) EC tablet 40 mg 40 mg Oral BID Duke Claros MD 40 mg at 11/07/22 0859 polyethylene glycol (MIRALAX) powder 17 g 17 g Oral Daily Jass Barboza MD 17 g at 11/07/22 0900 rivaroxaban (XARELTO) tablet 2.5 mg 2.5 mg Oral BID Duke Claros MD 2.5 mg at 11/07/22 0859 sodium chloride (OCEAN) 0.65 % nasal spray 1 spray 1 spray Each Nare PRN Jass Barboza MD 1 sprayat 11/06/22 0835 sodium chloride (PF) (NS) flush 5 mL 5 mL Intravenous PRN Aurelia Tillman CNP And sodium chloride 0.9% (NS) 0-150 mL/hr Intravenous PRN Aurelia Tillman CABINET INSTALLER Stopped at 11/05/22 2324 sodium chloride (PF) (NS) flush 5 mL 5 mL Intravenous PRN Duke Claros MD And sodium chloride (PF) (NS) flush 5 mL 5 mL Intravenous Q8H SADIA Duke Claros MD 5 mL at 11/07/22 0625 And sodium chloride 0.9% (NS) 0-150 mL/hr Intravenous PRN Duke Claros MD Stopped at 11/04/22 1115 zolpidem (AMBIEN) tablet 10 mg 10 mg Oral Nightly PRN Meir Ward MD 10 mg at 11/05/22 2135 Objective: Physical Examination: BP 100/62 Pulse 87 Temp 99.4 F (37.4 C) (Oral) Resp 16 Ht 6' 1 Wt 113.4 kg (250 lb) SpO2 96% BMI 32.98 kg/m Constitutional: Alert, acutely ill appearing, not in distress.? Eyes: Conjunctivae/corneas clear. Lungs: Clear to auscultation but mildly diminished, no wheezes, rales or rhonchi. Cardiovascular: Normal rate and regular rhythm, S1 and S2 normal, no murmurs noted, trace right ankle edema, no JVD. Abdomen: Soft, nontender Skin: Warm and dry Musculoskeletal: Mild generalized weakness Psych: Oriented to time, person, and place; appropriate mood. No results found for: CHOL, LDLCALC, LDLDIRECT, TRIG, HDL Serum creatinine: 1.34 mg/dL (H) 11/07/22 0629 Estimated creatinine clearance: 47.2 mL/min (A) Associated attestation - Juvencio Jeffries MD - 11/07/2022 11:17 AM EDT Images from the original note were not included. The patient was seen and examined by me, and all findings documented by the Nurse Practitioner below were verified. The diagnostic testing results, relevant laboratory data, and relevant radiology images were reviewed, and I independently reviewed the ECG tracings. In addition, for this patient I re viewed the following supplementary information: prior progress notes and consultations, prior cardiac testing results, and independent review of telemetry tracings. My total involvement accounted forthe majority of time devoted to this consultation. I agree with assessment and plans below. He has been admitted for several days and then developed transient chest tightness which is nonspecific. Overall flat troponin elevation which is down trending. He does have underlying pneumonia. Recommend: There is really no evidence of acute syndrome, I would attribute his discomfort to his pneumonia and just continue medical therapy for his known CAD. His orthostatic lightheadedness may be due to overdiuresis, so agree with transitioning IV Lasix back to oral dosing. Agree with holding home losartan and resuming 1 to 2 days if BP improves. All questions were answered. We will be happy to reevaluate the patient as needed for any recurrent cardiac issues or concerns. Jaziel Jeffries MD, [facility] Inpatient Rounding [phone] Office [phone] [facility] Work Phone: [phone] Consult note* Aaron Fenton DPM - 11/07/2022 7:07 AM EDTAssociated Order(s): IP CONSULT TO PODIATRY Critical Limb Care Consult Note Tristin Powell AGE: 82 y.o. GENDER: male : 1940 EPISODE DATE: 11/03/2022 Assessment/Plan: Tristin Powell is an 82 year old male with a history of Prostate Cancer, CAD, PAD (left foot amputation 2018), Hypertension, HFpEF who presented to [facility] 11/03/2022 with persistent pneumonia despite #2 rounds of PO antibiotics, as well as diffuse bilateral LE edema and swelling. Troponin 117, BNP 429, CRP 36. CT-PE: no pulmonary embolism, dense LLL consolidation. Posterior tibial tendinitis right: pt seen and evaluated. 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 He has some rubbing along the medial ankle and pressure build up on the lateral ankle. He will need to go to [facility] for an adjustment to help prevent the valgus deformity in the heel from getting worse. The right side pain is due to similar issues and will need arch support to address this. He did have some inserts but did not wear them due to tightness inthe shoe. Educated him on how to make more room in the shoe for his insert. He will try this as well. I did refer him to Dashawn Orosco DPM for f/u as he is closer to patient's home. Pt can call with any issues as well. Subjective: Chief Complaint Patient presents with Foot Injury Shortness of Breath HISTORY of PRESENT ILLNESS HPI Tristin Powell is a 82 y.o. male who is seen today for evaluation of right and left foot pain. Pain Timing/Severity: constant, during ambulation and with shoe/brace use. Quality of pain: aching and sharp Severity of pain: 5 / 10 Modifying Factors: PAD Associated Signs/Symptoms: none PAST MEDICAL HISTORY Past Medical History: Diagnosis Date Arthritis Avascular necrosis of bone of hip ([facility]) Claudication ([facility]) Coronary artery disease Herpes zoster Hyperlipidemia Hypertension PAD (peripheral artery disease) ([facility]) 01/21/2022 Prostate cancer ([facility]) Vascular disease PAST SURGICAL HISTORY Past Surgical History: Procedure Laterality Date 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/08/2018 Procedure: LEFT MIDFOOT AMPUTATION; Surgeon: Flynn Mann DPM; Location: [facility]; Service: Podiatry ANKLE SURGERY Left BYPASS PERONEAL FEMORAL Right 09/07/2018 Procedure: BYPASS PERONEAL FEMORAL, RIGHT SAPHENOUS VEIN HARVEST, COMPLETION ANGIOGRAM; Surgeon: Mohsen Sarabia MD; Location: [facility] NEURO OR; Service: Cardiovascular CARDIAC CATHETERIZATION Left 09/05/2018 Procedure: Angio Lower Extremity; Surgeon: Ben Hahn MD; 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; Service: Cardiovascular CARDIAC SURGERY 2017 triple bypass EGD N/A 10/10/2018 Procedure: ESOPHAGOGASTRODUODENOSCOPY; Surgeon: Ben eJnsen MD; Location: [facility]; Service: Gastroenterology EYE SURGERY Right 2015 FOOT SURGERY ORTHOPEDIC SURGERY STENT PLACEMENT FAMILY HISTORY Family History Problem Relation Age of Onset No Known Problems Mother Heart disease Father Prostate cancer Brother Cancer Paternal Aunt SOCIAL HISTORY Social History Tobacco Use Smoking status: Never Smokeless tobacco: Never Vaping Use Vaping Use: Never used Substance Use Topics Alcohol use: Not Currently Drug use: Never ALLERGIES Allergies Allergen Reactions Doxycycline Elevated blood pressure, GI intolerance/ nausea/vomiting MEDICATIONS No current facility-administered medications on file prior to encounter. Current Outpatient Medications on File Prior to Encounter Medication Sig Dispense Refill albuterol (PROVENTIL) 2.5 mg /3 mL (0.083 %) nebulizer solution Take 3 mL (2.5 mg total) by nebulization every 6 (six) hours as needed for wheezing . 12 mL 2 albuterol 90 mcg/actuation inhaler Inhale 2 (two) puffs every 4 (four) hours as needed for wheezing, shortness of breath or cough . 54 g 3 aspirin 81 mg cap Take 1 (one) capsule (81 mg total) by mouth daily . atorvastatin (LIPITOR) 40 MG tablet Take 0.5 (one-half) tablet (20 mg total) by mouth 2 (two) timesa day 1/2 tab . ergocalciferol (ERGOCALCIFEROL) 1,250 mcg (50,000 unit) capsule Take 1 (one) capsule (50,000 Units total) by mouth once a week . fluticasone (FLONASE) 50 mcg/actuation nasal spray 2 (two) sprays by Each Nare route daily . 16 g 12 kdbwpcgiile-ztztqmyur-cvbozftx (Trelegy Ellipta) 100-62.5-25 mcg DsDv 1 puff every night at bedtime. ipratropium-albuteroL (DUO-NEB) 0.5-2.5 mg/3 ml nebulizer Take 3 mL by nebulization 3 (three) timesa day . losartan (COZAAR) 50 MG tablet Take 1 (one) tablet (50 mg total) by mouth daily . metoprolol tartrate (LOPRESSOR) 50 MG tablet Take 1 (one) tablet (50 mg total) by mouth 2 (two) times a day . omeprazole (PRILOSEC) 20 MG capsule Take 1 (one) capsule (20 mg total) by mouth daily . oxyCODONE-acetaminophen (PERCOCET) 5-325 mg per tablet Take 1 (one) tablet by mouth every 6 (six) hours as needed for pain . polyethylene glycol (MIRALAX) 17 gram powder Take 17 (seventeen) g by mouth daily . rivaroxaban (XARELTO) 2.5 mg tablet Take 1 (one) tablet (2.5 mg total) by mouth 2 (two) times a day. ammonium lactate (LAC-HYDRIN) 12 % lotion Apply topically 2 (two) times a day . 400 g 2 gabapentin (NEURONTIN) 100 MG capsule Take 1 (one) capsule (100 mg total) by mouth every 8 (eight) hours . tiotropium bromide (SPIRIVA RESPIMAT) 2.5 mcg/actuation Mist Inhale 2 (two) puffs daily Start: 01/22/22. (Patient not taking: Reported on 02/25/2022 .) 4 g 2 zolpidem (AMBIEN) 10 mg tablet Take 1 (one) tablet (10 mg total) by mouth nightly as needed . REVIEW OF SYSTEMS Pertinent items are noted in HPI. Objective: BP 103/62 Pulse 86 Temp 99 F (37.2 C) (Oral) Resp 16 Ht 6' 1 Wt 113.4 kg (250 lb) [id number]% BMI 32.98 kg/m PHYSICAL EXAM General: The patient is in no acute distress. Mental status: Patient is appropriate, is oriented to place and plan of care. Vascular: Tibialis posterior pulse: dopplerable and Dorsalis pedis pulse: dopplerable Neurological: alert, oriented, normal speech, no focal findings or movement disorder noted Dermatologic exam: Visual inspection of the periwound skin reveals: discoloration and edema M/S: ROM decreased to b/l ankles with contracture noted. There is a valgus deformity b/l with pes planus deformity to the right side. Decreased PT function noted on right. Small blister formation to the left medial posterior medial malleolar area. Superficial. All active wounds listed below with today's date are evaluated Electronically signed by Aaron Fenton DPM 11/07/2022 at 7:08 AM ote [facility] Work Phone: [phone] Note* Plan of Care - Alma Delia Page RN - 11/05/2022 7:07 PM EST Problem: Pressure Ulcer - Risk of Goal: Absence of pressure ulcer Outcome: Partially Met Problem: Pain Goal: Manage acute pain Outcome: Partially Met Goal: Manage chronic pain Outcome: Partially Met Goal: Reduced pain sensation Outcome: Partially Met Goal: Achievement of comfort function goal Outcome: Partially Met Problem: Actual or potential alteration in health Goal: Absence of healthcare acquired conditions Outcome: Completed Goal: Knowledge of Interdisciplinary Plan of Care Outcome: Completed Goal: Knowledge of Enviroment Outcome: Completed [id number] Miscellaneous Notes* Plan of Care - Alma Delia Page RN - 11/05/2022 7:07 PM EST Problem: Pressure Ulcer - Risk of Goal: Absence of pressure ulcer Outcome: Partially Met Problem: Pain Goal: Manage acute pain Outcome: Partially Met Goal: Manage chronic pain Outcome: Partially Met Goal: Reduced pain sensation Outcome: Partially Met Goal: Achievement of comfort function goal Outcome: Partially Met Problem: Actual or potential alteration in health Goal: Absence of healthcare acquired conditions Outcome: Completed Goal: Knowledge of Interdisciplinary Plan of Care Outcome: Completed Goal: Knowledge of Enviroment Outcome: Completed * Quick Note - Rojelio Mackenzie DO - 11/04/2022 10:08 AM EST I evaluated the patient independent of the YUE. I reviewed all pertinent history, physical, laboratory, and radiographic findings. Subjective: This is a 82 year old male with PMHx of prostate cancer, CAD, PAD, HTN, COPD, CHF who is admitted for persistent pneumonia and was noticed to have swelling and ecchymosis to the left distal arm. Patient states on Monday he was moving a table when he felt a tweak in his left biceps muscle. He didn't think much of it and then noticed swelling and bruising in the area. Has some pain now. No numbness or tingling. Is on Xarelto. No other complaints. Objective: Alert and oriented. No acute distress. Physical Exam: left upper extremity TTP over the distal biceps muscle MSK: full ROM of the elbow, 5/5 strength with biceps testing, negative hook test, no obvious deformity, cardinal hand movements intact Neuro: sensation intact to light touch throughout the LUE Compartments: soft and compressible Pulses: DP/PT pulses 2+ with good cap refill Skin: there is some swelling and ecchymosis just proximal to the antecubital fossa, no open wounds No other orthopedic injuries identified on secondary exam. Imaging: X-rays of the left humerus are negative for any fracture or other abnormality. Assessment: This is a 82 year old male with a biceps muscle strain. No concern for biceps tendon rupture. Plan: No plan for orthopedic intervention at this time WBAT LUE Ice and anti-inflammatories Pain control Ok to eat from an ortho standpoint No need for ortho follow-up Rojelio Mackenzie, PGY-4 Orthopedic Surgery Resident * Quick Note - Catina Calixto CNP - 11/04/2022 8:06 AM EST Received consult for patient with chronic PAD s/p L fem-peroneal (GSV) bypass per Dr. Sarabia in 2018. He has no acute issues or lower extremity wounds and denies BLE claudication. No indication for additional inpatient work up/resting. Patient can follow up with Dr. Sarabia as an outpatient. * Assessment & Plan Note - Catina Calixto CNP - 11/04/2022 7:13 AM EST Associated Problem(s): PAD (peripheral artery disease) (HCC) S/p L fem-peroneal (GSV) bypass per Dr. Sarabia in 2019 in the setting of CLI. S/p L TMA shortly thereafter which successfully healed. Established with Dr. Sarabia for ongoing surveillance of bypass graft. R YAMILE in March 2022 was known to be reduced (0.5) * Assessment & Plan Note - Gustavo Macdonald CNP - 11/04/2022 6:51 AM ESTAssociated Problem(s): Hematoma of arm, left, initial encounter 82 yo RHD male with left upper [...] Dr. Messina as needed if symptoms persist * Plan of Care - Deisi Gimenez RN - 11/04/2022 3:01 AM EST Problem: Actual or potential alteration in health Goal: Absence of healthcare acquired conditions Outcome: Partially Met Goal: Knowledge of Interdisciplinary Plan of Care Outcome: Partially Met Goal: Knowledge of Enviroment Outcome: Partially Met Problem: Pressure Ulcer - Risk of Goal: Absence of pressure ulcer Outcome: Partially Met * ED Attestation Note - Ronnie Montoya MD - 11/03/2022 6:42 PM EST This visit was performed by both a physician and an APC. I personally evaluated and examined the patient. I performed all aspects of the MDM as documented. Patient is an 82-year-old male who presents with several complaints. One is that he started on October 10 with a cough. He has been seen by his primary physician and has actually been to the ER twice for it over this last month. He has been treated with 2 different course of antibiotics. Currently, he is on Levaquin for it, started just a few days ago. At one point in time his x-ray they said showed some fluid and at one point in time they thought his x-ray showed some pneumonia at these outside facilities. Daughter says that he has had a temperature up to 101.5 degrees intermittently throughout this time, but not consistently. Patient says mostly it is just that he has had a cough. He says the cough is worse if he tries to lie down, better if he is up, but he coughs all day long. Deniesany specific chest pain. Then, they have also noted that his legs have been swollen over the last actually several months but slowly getting worse, and he is not on any type of diuretic. He does havea previous history of peripheral vascular disease, and he has had a previous amputation of his left forefoot, and then there was 1 spot on his left forefoot where it opened and he has been leaking some clear fluid from. The patient also complained of some pain in his left biceps area that started. He said he went to get up out of the chair and he felt something, but then it did not swell until later in the day. This was a few days ago. He is on Xarelto for his peripheral artery disease. PHYSICAL EXAM Respiratory: Shows that his lungs actually have bilateral breath sounds, which are clear. Cardiovascular: Regular rate and rhythm. Left Upper Extremity: Appears to have some bruising over the anterior biceps area, and it appears that this most likely seems to be a muscle hematoma. There is no posterior arm swelling in the triceps area, only over the lower anterior biceps, but the biceps muscle itself is intact. Abdomen: Soft and nontender. Lower Extremities: Do have edema noted in both lower extremities to approximately the ipt-lt-wlfxa calf area bilaterally, but there are no signs of infection. There is no redness. documented in this [id number] Consult note* Lyn Cerrato, OT - 11/04/2022 1:51 PM EST Occupational Therapy OCCUPATIONAL THERAPY EVALUATION Skilled Therapy Needs After Discharge Anticipate Resolution of Current Assessment Limitations Including: Pain, Mechanical Barriers Are Skilled Therapy Services Needed After Discharge: No DME Recommendation: None Rehab Potential: Excellent Outcomes Measures Prior Function Daily Activity Raw Score: 24 Prior Function Daily Activity % Impaired: 0% AM-PAC Daily Activity Raw Score: 21 AM-PAC Daily Activity % Impaired: 32.79% Occupational Therapy Assessment The patient's current functional participation deficits are LE dressing, bathing, toileting, driving, functional mobility, home management, meal preparation. This reduced independence will limit their life roles of premorbid level individual, community member, family member. The patient's co morbidities do affect patient performance in the above activities and roles. The performance deficits are a result of musculoskeletal, cardiopulmonary impairment(s) in generalized debility, global systems including balance, acitvity tolerance, pain, (no), and pain intolerance. 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 The patient's awareness of own capacity and performance is a geek squad manager to return to prior level of function. During the assessment, minimal to moderate modification of task was required and limited treatment options were identified in the plan of care. This consultation required expanded review of the medical and therapy history. Activity Tolerance Activity Tolerance: Tolerates 10 - 20 min activity with multiple rests (SPO2 96% on RA) Therapy Precautions Orthotic Devices: Yes Lower Extremity: Left, AFO, Prosthesis Weight Bearing Status: X LUE: Wt bearing as tolerated (ROMAT) General Rehab Precautions: Fall risk (mild) Cognition Overall Cognitive Status: Within Functional Limits Arousal/Alertness: Appropriate responses to stimuli Orientation Level: Oriented X4 Executive functioning: WFL Safety Judgment: Good awareness of safety precautions Problem Solving: Able to problem solve independently Attention: Attends to distracted environment, Attends to quiet environment Hearing Status: WFL Social Interaction: Cooperative, Appropriate Comments: pt with no command following deficits ADL Lower Body Dressing: Supervision (to don shoes and orthosis sitting EOB) Functional Mobility: Stand by assist, Contact guard assist (no device, in saab) Bed Mobility Supine to Sit: Modified independent, Head of bed elevated Sit to Supine: (pt sitting EOB at end of session) Functional Transfers Sit to Stand: Contact guard assist (from EOB) Additional Assessment Details pt reporting decreased endurance with activity. pt reports no lightheadedness or dizziness throughout. pt exhibiting some SOB with activity, SPO2 WNL. pt wishing to sit EOB as opposed to in chair at end of session. Home Living Obtained Home Living and PLOF info from: Patient Lives With: Alone Type of Home: House Home Layout: One level Steps to enter home: Yes Rails to enter home: 2 rails Number of stairs to enter home: 2 Bathroom Shower/Tub: Walk-in shower Bathroom Equipment: Shower chair, Hand-held showerhead Mobility Equipment: Wheeled walker, Cane, Crutches, Wheelchair - manual Additional Objective Details - Home Living: Patient reports ambulating independently without AD when L AFO / prothesis donned; otherwise, using man w/c for mobility. Reports decreased mobility secondary to illness recently Prior Level of Function Level of [place] - Transfers/Ambulation/Mobility: Independent with household ambulation, Independent with community ambulation Level of [place] - ADLs: Independent Level of [place] - Homemaking: Independent Driving: Patient drives Past Medical History: Diagnosis Date Arthritis Avascular necrosis of bone of hip ([facility]) Claudication ([facility]) Coronary artery disease Herpes zoster Hyperlipidemia Hypertension PAD (peripheral artery disease) ([facility]) 01/21/2022 Prostate cancer ([facility]) Vascular disease Past Surgical History: Procedure Laterality Date 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/08/2018 Procedure: LEFT MIDFOOT AMPUTATION; Surgeon: Flynn Mann DPM; Location: [facility]; Service: Podiatry ANKLE SURGERY Left BYPASS PERONEAL FEMORAL Right 09/07/2018 Procedure: BYPASS PERONEAL FEMORAL, RIGHT SAPHENOUS VEIN HARVEST, COMPLETION ANGIOGRAM; Surgeon: Mohsen Sarabia MD; Location: [facility] OR; Service: Cardiovascular CARDIAC CATHETERIZATION Left 09/05/2018 Procedure: Angio Lower Extremity; Surgeon: Ben Hahn MD; 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 This note stands as the current Discharge Summary upon patient discharge from the hospital or completion of Occupational Therapy Plan of Care. [id number] Consult note* Neetu Thompson RN - 11/04/2022 11:08 AM EST Associated Order(s): IP CONSULT TO CARDIOLOGY - PERIPHERAL VASC DISEASE Information only. Cardiology consult completed by Aminah Calixto CNP 3.10.23. See note for details. [id number] Note* Quick Note - Rojelio Mackenzie DO - 11/04/2022 10:08 AM EST I evaluated the patient independent of the YUE. I reviewed all pertinent history, physical, laboratory, and radiographic findings. Subjective: This is a 82 year old male with PMHx of prostate cancer, CAD, PAD, HTN, COPD, CHF who is admitted for persistent pneumonia and was noticed to have swelling and ecchymosis to the left distal arm. Patient states on Monday he was moving a table when he felt a tweak in his left biceps muscle. He didn't think much of it and then noticed swelling and bruising in the area. Has some pain now. No numbness or tingling. Is on Xarelto. No other complaints. Objective: Alert and oriented. No acute distress. Physical Exam: left upper extremity TTP over the distal biceps muscle MSK: full ROM of the elbow, 5/5 strength with biceps testing, negative hook test, no obvious deformity, cardinal hand movements intact Neuro: sensation intact to light touch throughout the LUE Compartments: soft and compressible Pulses: DP/PT pulses 2+ with good cap refill Skin: there is some swelling and ecchymosis just proximal to the antecubital fossa, no open wounds No other orthopedic injuries identified on secondary exam. Imaging: X-rays of the left humerus are negative for any fracture or other abnormality. Assessment: This is a 82 year old male with a biceps muscle strain. No concern for biceps tendon rupture. Plan: No plan for orthopedic intervention at this time WBAT LUE Ice and anti-inflammatories Pain control Ok to eat from an ortho standpoint No need for ortho follow-up Rojelio Mackenzie, PGY-[address] [facility] Work Phone: [phone] 693-674503-10-2023 Note* Quick Note - Catina Calixto CNP - 11/04/2022 8:06 AM EST Received consult for patient with chronic PAD s/p L fem-peroneal (GSV) bypass per Dr. Sarabia in 2019. He has no acute issues or lower extremity wounds and denies BLE claudication. No indication for additional inpatient work up/resting. Patient can follow up with Dr. Sarabia as an outpatient. [id number] Evaluation + Plan note* Assessment & Plan Note - Catina Calixto CNP - 11/04/2022 7:13 AM ESTAssociated Problem(s): PAD (peripheral artery disease) (HCC) S/p L fem-peroneal (GSV) bypass per Dr. Sarabia in 2019 in the setting of CLI. S/p L TMA shortly thereafter which successfully healed. Established with Dr. Sarabia for ongoing surveillance of bypass graft. R YAMILE in March 2022 was known to be reduced (0.5) [id number] Evaluation + Plan note* Assessment & Plan Note - Gustavo Macdonald CNP - 11/04/2022 6:51 AM ESTAssociated Problem(s): Hematoma of arm, left, initial encounter 82 yo RHD male with left upper [...] Dr. Messina as needed if symptoms persist [id number] Consult note* Gustavo Macdonald, KAMARI - 11/04/2022 6:50 AM EST Associated Order(s): IP CONSULT TO ORTHOPEDIC SURGERY CONSULT NOTE Patient Name: Tristin Powell Admit Date: [id number] MR #: [id number] : 1940 Physicians: Flash Lovelace MD (Family); No ref. provider found (Referring) Dr. Harris Messina (orthopedic surgery) Assessment and Plan: Other Hematoma of arm, left, initial encounter Assessment & Plan 82 yo RHD male with left upper arm hematoma - D/W Dr. Mackenzie - XR reviewed; negative for fracture or dislocation - VSS. Afebrile. WBC 8.06 / CRP 35.4 / ESR 30 - suspect hematoma in setting of xarelto. Biceps tendon appears intact on clinical exam - compartments soft and compressible. No indication for surgical intervention - recommend supportive care with rest, ice, compression, elevation as able - WBAT/ROMAT LUE - follow up with PCP or Dr. Messina as needed if symptoms persist Chief Complaint/Reason for Visit: possible left biceps tendon rupture vs hematoma History of Present Illness: Tristin Powell is a 82 y.o. right hand dominant male with pmh of PAD on xarelto, CAD, HLD, HTN, prostate cancer presenting to [facility] 11/03 with CAP. Patient also reports left upperarm pain. He states that he was pushing a small table with his left arm ~3 days ago when he felt a twist in his upper arm. He didn't think much of it initially until several hours later when he deve loped pain and swelling, followed by bruising over his left biceps. He reports the pain as mild andendorses some improvement in the swelling. He denies any additional falls or trauma. He denies numbness or tingling. He denies any additional orthopedic concerns/complaints at this time. History: Past Medical History: Diagnosis Date Arthritis Avascular necrosis of bone of hip (HCC) Claudication (HCC) Coronary artery disease Herpes zoster Hyperlipidemia Hypertension PAD (peripheral artery disease) (HCC) 01/21/2022 Prostate cancer (HCC) Vascular disease Past Surgical History: Procedure Laterality Date 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/08/2018 Procedure: LEFT MIDFOOT AMPUTATION; Surgeon: Flynn Mann DPM; Location: [facility]; Service: Podiatry ANKLE SURGERY Left BYPASS PERONEAL FEMORAL Right 09/07/2018 Procedure: BYPASS PERONEAL FEMORAL, RIGHT SAPHENOUS VEIN HARVEST, COMPLETION ANGIOGRAM; Surgeon: Mohsen Sarabia MD; Location: [facility]; Service: Cardiovascular CARDIAC CATHETERIZATION Left 09/05/2018 Procedure: Angio Lower Extremity; Surgeon: Ben Hahn MD; 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; Service: Cardiovascular CARDIAC SURGERY 2017 triple bypass EGD N/A 10/10/2018 Procedure: ESOPHAGOGASTRODUODENOSCOPY; Surgeon: Ben Jensen MD; Location: [facility]; Service: Gastroenterology EYE SURGERY Right 2015 FOOT SURGERY ORTHOPEDIC SURGERY STENT PLACEMENT Family History Problem Relation Age of Onset No Known Problems Mother Heart disease Father Prostate cancer Brother Cancer Paternal Aunt Social History Socioeconomic History Marital status: Tobacco Use Smoking status: Never Smokeless tobacco: Never Vaping Use Vaping Use: Never used Substance and Sexual Activity Alcohol use: Not Currently Drug use: Never Sexual activity: Not Currently Allergy Information: I have reviewed the patient's allergies. Doxycycline Home Medications: Outpatient Medications as of 11/04/2022 Medication Sig albuterol (PROVENTIL) 2.5 mg /3 mL (0.083 %) nebulizer solution Take 3 mL (2.5 mg total) by nebulization every 6 (six) hours as needed for wheezing . albuterol 90 mcg/actuation inhaler Inhale 2 (two) puffs every 4 (four) hours as needed for wheezing, shortness of breath or cough . aspirin 81 mg cap Take 1 (one) capsule (81 mg total) by mouth daily . atorvastatin (LIPITOR) 40 MG tablet Take 0.5 (one-half) tablet (20 mg total) by mouth 2 (two) timesa day 1/2 tab . ergocalciferol (ERGOCALCIFEROL) 1,250 mcg (50,000 unit) capsule Take 1 (one) capsule (50,000 Units total) by mouth once a week . fluticasone (FLONASE) 50 mcg/actuation nasal spray 2 (two) sprays by Each Nare route daily . dzaskmalfsw-sakpcphkl-plpniqmp (Trelegy Ellipta) 100-62.5-25 mcg DsDv 1 puff every night at bedtime. losartan (COZAAR) 50 MG tablet Take 1 (one) tablet (50 mg total) by mouth daily . metoprolol tartrate (LOPRESSOR) 50 MG tablet Take 1 (one) tablet (50 mg total) by mouth 2 (two) times a day . omeprazole (PRILOSEC) 20 MG capsule Take 1 (one) capsule (20 mg total) by mouth daily . oxyCODONE-acetaminophen (PERCOCET) 5-325 mg per tablet Take 1 (one) tablet by mouth every 6 (six) hours as needed for pain . polyethylene glycol (MIRALAX) 17 gram powder Take 17 (seventeen) g by mouth daily . rivaroxaban (XARELTO) 2.5 mg tablet Take 1 (one) tablet (2.5 mg total) by mouth 2 (two) times a day. ammonium lactate (LAC-HYDRIN) 12 % lotion Apply topically 2 (two) times a day . gabapentin (NEURONTIN) 100 MG capsule Take 1 (one) capsule (100 mg total) by mouth every 8 (eight) hours . zolpidem (AMBIEN) 10 mg tablet Take 1 (one) tablet (10 mg total) by mouth nightly as needed . Review of Systems: The following system(s) were reviewed and pertinent findings noted: Constitutional: negative fevers, negative chills MSK: positive left upper arm pain Neuro: negative numbness, negative tingling Physical Examination: Vital Signs: BP (!) 162/74 (BP Location: Right arm, Patient Position: Sitting) Pulse 93 Temp 98.1 F (36.7 C)(Oral) Resp (!) 19 Ht 6' 1 Wt 113.4 kg (250 lb) SpO2 93% BMI 32.98 kg/m Constitutional: Appears well, no distress Cardiovascular: 2+ radial pulse with BCR to all fingers in left upper extremity Neurological: LUE: SILT to all fingers. R/U/M/Ax nerves all grossly intact Integumentary: ecchymosis to distal biceps/upper arm. Skin otherwise intact over shoulder, elbow, and wrist with no open wounds. Musculoskeletal: LUE: Able to wiggle all fingers. Full aROM left elbow. Negative hook test. Mild swelling and TTP over left distal biceps. Compartments soft and compressible Associated attestation - Harris Messina MD - 11/04/2022 1:28 PM EST I saw and evaluated the patient on 11/04/2022. I have reviewed the orthopedic consultation as well as the relevant radiographic studies. I have been asked to see this patient by Dr.William Oscar Claros MD. He sustained a injury to his left upper arm 3 days ago. He does have some swelling and bruising.His compartments are soft. There are no fractures or dislocations. It does not appear as though he has an obvious distal biceps rupture. Regardless, at his age group I would not recommend definitive fixation. He may use his arm as he tolerates. He should follow-up with his primary care physician. [id number] Note* Plan of Care - Deisi Gimenez RN - 11/04/2022 3:01 AM EST Problem: Actual or potential alteration in health Goal: Absence of healthcare acquired conditions Outcome: Partially Met Goal: Knowledge of Interdisciplinary Plan of Care Outcome: Partially Met Goal: Knowledge of Enviroment Outcome: Partially Met Problem: Pressure Ulcer - Risk of Goal: Absence of pressure ulcer Outcome: Partially Met [id number] History and physical note* Duke Calros MD - 11/03/2022 9:58 PM EST [facility] History and Physical Note 11/03/22 Tristin Powell 1940 [id number] Assessment/Plan: Tristin Powell is a 82 y.o. male with a history of Prostate Cancer, CAD, PAD (left foot amputation 2018) HTN, HFpEF who presented to [facility] 11/03/2022 with persistent pneumonia despite #2 rounds of PO antibiotics, as well as diffuse BLLE edema and swelling. Troponin 117, BNP 429, CRP 36. CT-PE: no pulmonary embolism, dense LLL consolidation. Persistent Pneumonia: initially diagnosed ~10/19/22 and did not improve with #2 courses of PO antibiotics (initially on Azithromycin/Cefuroxime and then Levaquin since 10/30/22) Admit CT-PE: dense consolidation , ordered MRSA swab, urine strep/legionella, sputum culture. Broadened to Cefepime and Vancomycin on admit Acute on Chronic HFpEF: Last TTE 09/2018: EF 55% with grade-1 diastolic dysfunction. volume up on admit, not on diuretic at baseline. Added IV Lasix BID and repeat TTE ordered Left Upper Arm Swelling: concern for left biceps tendon rupture or hematoma. Ortho consulted. HTN: Continued home ARB, BB Severe PAD: with hx of left femoral to peroneal bypass 09/07/18 and s/p left midfoot amputation (2018) with known diffuse PAD in both legs. Left midfoot amputation (2019), Continued home ASA, Xarelto 2.5mg. PV-Cardiology consulted CAD: Hx of CABG x3 (2016) Left Buttock Pressure Ulcer: Stage unknown, present on admit. Wound team consulted. Elevated Troponin: Likely demand ischemia in setting of persistent pneumonia. COPD: no acute exacerbation on admit. Continued home inhaler equivalents Prostate Cancer: s/p Brachytherapy, reportedly in remission. Code status: FULL DVT Prophylaxis: Xarelto 2.5mg BID Current living situation: Home Expected Disposition: TBD Estimated discharge date: TBD Admitted with these risk variables:Viral Pneumonia and CHF. Please see assessment and plan for further details. Chief Complaint: coughing History of Present Illness: Tristin Powell is a 82 y.o. male with a history of Prostate Cancer, CAD, PAD (left foot amputation 2018) HTN, HFpEF who presented to [facility] 11/03/2022 with persistent pneumonia despite #2 rounds of PO antibiotics and right leg swelling. Troponin 117, BNP 429, CRP 36. CT-PE: no pulmonary embolism, dense LLL consolidation. Patient was diagnosed with CAP by PCP on ~10/17/22 and started on prednisone and azithromycin and cefuroxime which she took for approximately 5 to 7 days without significant improvement. Patient was hoping the cold will go away on its own after that but when his productive cough and periods of persistent coughing did not improve him back to PCP and started Levaquin on 10/31/2022. When the second round of antibiotics did not seem to make any meaningful improvement patient came to the ED. Patient typically has coughing spells which are worse at night, worse when he lays down and are productive at times. Patient has limited mobility due to his left foot amputation and has been sitting and laying in bed a lot more than he typically does. His daughter is worried that he is developing a pressure ulcer on his left buttocks from having to sleep more up right. Also of note several days ago patient was reaching down when he heard a pop and then noticed that my left bicep looks a lot better than my right patient has minimal pain in the area but has profound irregularity and a palpable density in the left biceps region compared to the right with a small amount of bruising. Patient seen and examined. I personally reviewed CT-PE: my impression is dense LLL consolidation without evidence of pulmonary edema or pulmonary embolism. Patient's daughter at bedside to provide additional clinical history and information regarding his PAD, left midfoot amputation. I also reviewed Troponin, BMP, BNP, CBC, ROS: 10 systems were reviewed and negative, except as noted above. Past Medical, Surgical, Social, Family History: Past Medical History: Diagnosis Date Arthritis Avascular necrosis of bone of hip ([facility]) Claudication ([facility]) Coronary artery disease Herpes zoster Hyperlipidemia Hypertension PAD (peripheral artery disease) ([facility]) 01/21/2022 Prostate cancer ([facility]) Vascular disease Past Surgical History: Procedure Laterality Date 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/08/2018 Procedure: LEFT MIDFOOT AMPUTATION; Surgeon: Flynn Mann DPM; Location: [facility]; Service: Podiatry ANKLE SURGERY Left BYPASS PERONEAL FEMORAL Right 09/07/2018 Procedure: BYPASS PERONEAL FEMORAL, RIGHT SAPHENOUS VEIN HARVEST, COMPLETION ANGIOGRAM; Surgeon: Mohsen Sarabia MD; Location: [facility]; Service: Cardiovascular CARDIAC CATHETERIZATION Left 09/05/2018 Procedure: Angio Lower Extremity; Surgeon: Ben Hahn MD; 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; Service: Cardiovascular CARDIAC SURGERY 2017 triple bypass EGD N/A 10/10/2018 Procedure: ESOPHAGOGASTRODUODENOSCOPY; Surgeon: Ben Jensen MD; Location: [facility]; Service: Gastroenterology EYE SURGERY Right 2015 FOOT SURGERY ORTHOPEDIC SURGERY STENT PLACEMENT Social History Socioeconomic History Marital status: Tobacco Use Smoking status: Never Smokeless tobacco: Never Vaping Use Vaping Use: Never used Substance and Sexual Activity Alcohol use: Not Currently Drug use: Never Sexual activity: Not Currently Family History Problem Relation Age of Onset No Known Problems Mother Heart disease Father Prostate cancer Brother Cancer Paternal Aunt Home Medications: Outpatient Medications as of 11/03/2022 Medication Sig albuterol (PROVENTIL) 2.5 mg /3 mL (0.083 %) nebulizer solution Take 3 mL (2.5 mg total) by nebulization every 6 (six) hours as needed for wheezing . albuterol 90 mcg/actuation inhaler Inhale 2 (two) puffs every 4 (four) hours as needed for wheezing, shortness of breath or cough . ammonium lactate (LAC-HYDRIN) 12 % lotion Apply topically 2 (two) times a day . aspirin 81 mg cap Take 81 mg by mouth daily . atorvastatin (LIPITOR) 40 MG tablet Take 20 mg by mouth 2 (two) times a day / tab . fluticasone (FLONASE) 50 mcg/actuation nasal spray 2 (two) sprays by Each Nare route daily . gabapentin (NEURONTIN) 100 MG capsule Take 100 mg by mouth every 8 (eight) hours . losartan (COZAAR) 50 MG tablet Take 1 (one) tablet (50 mg total) by mouth daily . metoprolol tartrate (LOPRESSOR) 50 MG tablet Take 50 mg by mouth 2 (two) times a day . omeprazole (PRILOSEC) 20 MG capsule Take 20 mg by mouth daily . oxyCODONE-acetaminophen (PERCOCET) 5-325 mg per tablet Take 1 tablet by mouth every 6 (six) hours as needed for pain . polyethylene glycol (MIRALAX) 17 gram powder Take 17 (seventeen) g by mouth daily . rivaroxaban (XARELTO) 2.5 mg tablet Take 1 tablet by mouth 2 (two) times a day . tiotropium bromide (SPIRIVA RESPIMAT) 2.5 mcg/actuation Mist Inhale 2 (two) puffs daily Start: 01/22/22. (Patient not taking: No sig reported) zolpidem (AMBIEN) 10 mg tablet Take 1 (one) tablet (10 mg total) by mouth nightly as needed . Physical Exam: BP 138/70 (BP Location: Right arm, Patient Position: Sitting) Pulse 80 Temp 98.2 F (36.8 C) (Oral) Resp 18 Ht 6' 1 Wt 113.4 kg (250 lb) SpO2 95% BMI 32.98 kg/m General: chronically ill appearing elderly man, tall Eyes: EOMI ENT: neck supple Cardiovascular: Regular rate. Respiratory: no wheezing, productive cough at times, diminished in both lung bases Gastrointestinal: Soft, non tender Musculoskeletal: hard density in left upper biceps region with bruising compared to right, 2+ edemain both legs to level of knee bilaterally, edema in left stump with some seepage Skin: warm, dry Neuro: Alert. Hard of hearing, no focal deficits Psych: Mood appropriate. Labs, Imaging, and Studies reviewed: Results from last 7 days Lab Units 11/03/22 1353 WBC K/mcL 8.06 HGB g/dL 13.4* HCT % 40.7* PLT K/mcL 192 Results from last 7 days Lab Units 11/03/22 1353 SODIUM mmol/L 135 POTASSIUM mmol/L 4.3 CHLORIDE mmol/L 101 BICARB mmol/L 24 BUN mg/dL 20 CREATININE mg/dL 1.13 EGFR mL/min/1.73 m2 64 GLUCOSE mg/dL 92 CALCIUM mg/dL 9.5 [id number] History and physical note* Duke Claros MD - 11/03/2022 9:58 PM EST [facility] History and Physical Note 11/03/22 Tristin Powell 1940 [id number] Assessment/Plan: Tristin Powell is a 82 y.o. male with a history of Prostate Cancer, CAD, PAD (left foot amputation 2018) HTN, HFpEF who presented to [facility] 11/03/2022 with persistent pneumonia despite #2 rounds of PO antibiotics, as well as diffuse BLLE edema and swelling. Troponin 117, BNP 429, CRP 36. CT-PE: no pulmonary embolism, dense LLL consolidation. Persistent Pneumonia: initially diagnosed ~10/19/22 and did not improve with #2 courses of PO antibiotics (initially on Azithromycin/Cefuroxime and then Levaquin since 10/30/22) Admit CT-PE: dense consolidation , ordered MRSA swab, urine strep/legionella, sputum culture. Broadened to Cefepime and Vancomycin on admit Acute on Chronic HFpEF: Last TTE 09/2018: EF 55% with grade-1 diastolic dysfunction. volume up on admit, not on diuretic at baseline. Added IV Lasix BID and repeat TTE ordered Left Upper Arm Swelling: concern for left biceps tendon rupture or hematoma. Ortho consulted. HTN: Continued home ARB, BB Severe PAD: with hx of left femoral to peroneal bypass 09/07/18 and s/p left midfoot amputation (2019) with known diffuse PAD in both legs. Left midfoot amputation (2019), Continued home ASA, Xarelto 2.5mg. PV-Cardiology consulted CAD: Hx of CABG x3 (2017) Left Buttock Pressure Ulcer: Stage unknown, present on admit. Wound team consulted. Elevated Troponin: Likely demand ischemia in setting of persistent pneumonia. COPD: no acute exacerbation on admit. Continued home inhaler equivalents Prostate Cancer: s/p Brachytherapy, reportedly in remission. Code status: FULL DVT Prophylaxis: Xarelto 2.5mg BID Current living situation: Home Expected Disposition: TBD Estimated discharge date: TBD Admitted with these risk variables:Viral Pneumonia and CHF. Please see assessment and plan for further details. Chief Complaint: coughing History of Present Illness: Tristin Powell is a 82 y.o. male with a history of Prostate Cancer, CAD, PAD (left foot amputation 2018) HTN, HFpEF who presented to [facility] 11/03/2022 with persistent pneumonia despite #2 rounds of PO antibiotics and right leg swelling. Troponin 117, BNP 429, CRP 36. CT-PE: no pulmonary embolism, dense LLL consolidation. Patient was diagnosed with CAP by PCP on ~10/17/22 and started on prednisone and azithromycin and cefuroxime which she took for approximately 5 to 7 days without significant improvement. Patient was hoping the cold will go away on its own after that but when his productive cough and periods of persistent coughing did not improve him back to PCP and started Levaquin on 10/31/2022. When the second round of antibiotics did not seem to make any meaningful improvement patient came to the ED. Patient typically has coughing spells which are worse at night, worse when he lays down and are productive at times. Patient has limited mobility due to his left foot amputation and has been sitting and laying in bed a lot more than he typically does. His daughter is worried that he is developing a pressure ulcer on his left buttocks from having to sleep more up right. Also of note several days ago patient was reaching down when he heard a pop and then noticed that my left bicep looks a lot better than my right patient has minimal pain in the area but has profound irregularity and a palpable density in the left biceps region compared to the right with a small amount of bruising. Patient seen and examined. I personally reviewed CT-PE: my impression is dense LLL consolidation without evidence of pulmonary edema or pulmonary embolism. Patient's daughter at bedside to provide additional clinical history and information regarding his PAD, left midfoot amputation. I also reviewed Troponin, BMP, BNP, CBC, ROS: 10 systems were reviewed and negative, except as noted above. Past Medical, Surgical, Social, Family History: Past Medical History: Diagnosis Date Arthritis Avascular necrosis of bone of hip (HCC) Claudication (HCC) Coronary artery disease Herpes zoster Hyperlipidemia Hypertension PAD (peripheral artery disease) ([facility]) 01/21/2022 Prostate cancer ([facility]) Vascular disease Past Surgical History: Procedure Laterality Date 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/08/2018 Procedure: LEFT MIDFOOT AMPUTATION; Surgeon: Flynn Mann DPM; Location: [facility]; Service: Podiatry ANKLE SURGERY Left BYPASS PERONEAL FEMORAL Right 09/07/2018 Procedure: BYPASS PERONEAL FEMORAL, RIGHT SAPHENOUS VEIN HARVEST, COMPLETION ANGIOGRAM; Surgeon: Mohsen Sarabia MD; Location: [facility]; Service: Cardiovascular CARDIAC CATHETERIZATION Left 09/05/2018 Procedure: Angio Lower Extremity; Surgeon: Ben Hahn MD; 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; Service: Cardiovascular CARDIAC SURGERY 2017 triple bypass EGD N/A 10/10/2018 Procedure: ESOPHAGOGASTRODUODENOSCOPY; Surgeon: Ben Jensen MD; Location: [facility]; Service: Gastroenterology EYE SURGERY Right 2015 FOOT SURGERY ORTHOPEDIC SURGERY STENT PLACEMENT Social History Socioeconomic History Marital status: Tobacco Use Smoking status: Never Smokeless tobacco: Never Vaping Use Vaping Use: Never used Substance and Sexual Activity Alcohol use: Not Currently Drug use: Never Sexual activity: Not Currently Family History Problem Relation Age of Onset No Known Problems Mother Heart disease Father Prostate cancer Brother Cancer Paternal Aunt Home Medications: Outpatient Medications as of 11/03/2022 Medication Sig albuterol (PROVENTIL) 2.5 mg /3 mL (0.083 %) nebulizer solution Take 3 mL (2.5 mg total) by nebulization every 6 (six) hours as needed for wheezing . albuterol 90 mcg/actuation inhaler Inhale 2 (two) puffs every 4 (four) hours as needed for wheezing, shortness of breath or cough . ammonium lactate (LAC-HYDRIN) 12 % lotion Apply topically 2 (two) times a day . aspirin 81 mg cap Take 81 mg by mouth daily . atorvastatin (LIPITOR) 40 MG tablet Take 20 mg by mouth 2 (two) times a day 1/2 tab . fluticasone (FLONASE) 50 mcg/actuation nasal spray 2 (two) sprays by Each Nare route daily . gabapentin (NEURONTIN) 100 MG capsule Take 100 mg by mouth every 8 (eight) hours . losartan (COZAAR) 50 MG tablet Take 1 (one) tablet (50 mg total) by mouth daily . metoprolol tartrate (LOPRESSOR) 50 MG tablet Take 50 mg by mouth 2 (two) times a day . omeprazole (PRILOSEC) 20 MG capsule Take 20 mg by mouth daily . oxyCODONE-acetaminophen (PERCOCET) 5-325 mg per tablet Take 1 tablet by mouth every 6 (six) hours as needed for pain . polyethylene glycol (MIRALAX) 17 gram powder Take 17 (seventeen) g by mouth daily . rivaroxaban (XARELTO) 2.5 mg tablet Take 1 tablet by mouth 2 (two) times a day . tiotropium bromide (SPIRIVA RESPIMAT) 2.5 mcg/actuation Mist Inhale 2 (two) puffs daily Start: 01/22/22. (Patient not taking: No sig reported) zolpidem (AMBIEN) 10 mg tablet Take 1 (one) tablet (10 mg total) by mouth nightly as needed . Physical Exam: BP 138/70 (BP Location: Right arm, Patient Position: Sitting) Pulse 80 Temp 98.2 F (36.8 C) (Oral) Resp 18 Ht 6' 1 Wt 113.4 kg (250 lb) SpO2 95% BMI 32.98 kg/m General: chronically ill appearing elderly man, tall Eyes: EOMI ENT: neck supple Cardiovascular: Regular rate. Respiratory: no wheezing, productive cough at times, diminished in both lung bases Gastrointestinal: Soft, non tender Musculoskeletal: hard density in left upper biceps region with bruising compared to right, 2+ edemain both legs to level of knee bilaterally, edema in left stump with some seepage Skin: warm, dry Neuro: Alert. Hard of hearing, no focal deficits Psych: Mood appropriate. Labs, Imaging, and Studies reviewed: Results from last 7 days Lab Units 11/03/22 1353 WBC K/mcL 8.06 HGB g/dL 13.4* HCT % 40.7* PLT K/mcL 192 Results from last 7 days Lab Units 11/03/22 1353 SODIUM mmol/L 135 POTASSIUM mmol/L 4.3 CHLORIDE mmol/L 101 BICARB mmol/L 24 BUN mg/dL 20 CREATININE mg/dL 1.13 EGFR mL/min/1.73 m2 64 GLUCOSE mg/dL 92 CALCIUM mg/dL 9.5 documented in this [id number] Emergency department Note* MIGUE Berumen - 11/03/2022 9:35 PM EST [facility] to write admission orders. [id number]. [id number] Emergency department Note* MIGUE Berumen - 11/03/2022 9:35 PM EST [facility] to write admission orders. [id number]. * Sharron Khan PA-C - 11/03/2022 5:46 PM EST Images from the original note were not included. HPI/ROS History obtained by: Patient, daughter, medical records, triage note This patient is a 82 y.o. male with past medical history of CAD, COPD, HLD, HTN, and PAD with left foot amputation who presents to the emergency department with family members with chief complaint ofshortness of breath for the past month. Daughter states he began coughing on 10/10/2022. His cough is productive of mucus. He was initially seen on 10/17/2022 by his PCP for this cough and chest congestion and was started on azithromycin, cefuroxime, and prednisone. He improved some and then seen again on 10/27/2022 by PCP, started on cough syrup with codeine, and had a chest x-ray ordered. PCP called him the next day with chest x-ray results and states that he had fluid on the lungs and that if his symptoms worsen he should go to the ED. Patient felt worse on 10/30/2022 so he went to the ED in [facility]. He had a repeat chest x-ray at this ED that showed a questionable left infrahilar infiltrate. He had a respiratory panel which was completely negative that day. He was discharged on Levaquin and Tessalon Perles which he has been taking, however family is concerned because he is still symptomatic. He also now is endorsing intermittent chest pain for the past 2 weeks approximately. States it is amild discomfort on the left side of his chest. This pain occurs with coughing. Additionally patienthad his left foot amputated in 2019 and lately it has been more swollen than normal and a small area has started to drain fluid. Also states his right foot has been more swollen than baseline. Deniesusing supplemental oxygen at home. He is on Xarelto and 81 mg aspirin. Denies hemoptysis, abdominalpain, nausea, vomiting, fevers, chills, urinary complaints, constipation, or diarrhea. Medical Decision Making I saw and evaluated the patient. I have reviewed the chief complaint, triage note, past medical/surgical, family, and social history. This is an 82-year-old male with COPD and PAD who [facility] with shortness of breath and cough for approximately 1 month. His vital signs are unremarkable. On exam he is nontoxic and resting comfortably. Heart regular rate and rhythm. Decr eased breath sounds bilaterally. Patient wheezes while coughing and coughs frequently during my exam. Abdomen soft and protuberant but nontender to palpation. Left foot amputation with less than 1 cmopen wound draining a small mount of clear fluid. Swelling to the left lower extremity without overlying skin changes. Right foot with pitting edema as well. Unable to manually palpate dorsalis pedispulse. See photo below. Mild anemia present. No leukocytosis or platelet abnormalities. Sed rate of 30 and CRP 35.4. BNP of429, not highly concerning for this patient with age 82. BMP without electrolyte or renal abnormalities. Urinalysis unremarkable. Blood cultures were obtained. Initial troponin elevated at 117 and repeat troponin elevated at 119. Chest x-ray demonstrated linear densities at lung bases, otherwise overall unremarkable. X-ray of the left foot demonstrated chronic findings without evidence of acute osseous abnormalities. Venous Doppler of the bilateral lower extremities demonstrated no evidence of deep or superficial venous thrombosis. EKG interpreted by ED attending physician demonstrated normal sinus rhythm at [address] of the pulmonary arteries demonstrated no PE and left lower lobe pneumonia. Patient started on azithromycin, Rocephin, and given 20 mg Lasix for his peripheral edema. He was admitted to medicine for his community-acquired pneumonia with elevated troponin and peripheral edema. Heart score of 6. Differential Diagnoses: Pneumonia, PE, stable angina, ACS, DVT, sepsis, osteomyelitis 1. Community acquired pneumonia of left lower lobe of lung 2. Elevated troponin 3. Peripheral edema MDM Data MDM Data: External Documents/Labs Reviewed, X-ray interpretation reviewed, CT interpretation reviewed, Ultrasound interpretation reviewed, and Shared decision making utilized Decision Scores: HEART Score, PERC Rule, Wells Criteria DVT, and Wells Criteria PE Physical Exam Vital signs reviewed. CONSTITUTIONAL: Overall non toxic and resting comfortably EYES: No conjunctival injection. No icterus. HENT: External ears normal, external nose normal. NECK: Trachea midline RESPIRATORY: Wheezes with coughing, coughing frequently on exam. Decreased breath sounds bilaterally CHEST: Equal chest expansion, no tenderness, no crepitus CARDIOVASCULAR: Regular rate and regular rhythm. GASTROINTESTINAL: Abdomen soft, protuberant, non-tender, no guarding rebound or rigidity NEUROLOGICAL: Awake, alert and oriented. CN grossly intact. PSYCHOLOGICAL: The patient's mood and manner are appropriate. INTEGUMENTARY: Warm and dry. MUSCULOSKELETAL: Left foot amputation with less than 1 cm open wound draining a small mount of clear fluid. Swelling to the left lower extremity without overlying skin changes. Right foot with pitting edema as well. Unable to manually palpate dorsalis pedis pulse. Will have RN attempt to Doppler. See photo below Radiographic Imaging (if any) During ED Visit CT Pulmonary Arteries Final Result No evidence for acute pulmonary embolism. Left lower lobe pneumonia. Workstation ID: [id number] XR Chest 1 View Final Result FINDINGS/ 1. Patient is status post sternotomy, somewhat rotated, lordotic. The visualized osseous structuresappear intact. 2. The heart size seems normal. The aorta is tortuous, atherosclerotic. 3. There are some linear densities at lung bases, either scarring or discoid atelectatic changes. There are no focal infiltrates, pleural effusions, pulmonary edema, or pneumothorax. There are a few scattered calcified granulomas within the lungs. KKV/ads Workstation ID: [id number] XR Foot Left 3+ Views (Standard) Final Result Chronic findings without plain film evidence of acute osseous abnormalities. Workstation ID: [id number] Venous Doppler BILATERAL Lower Extremities Final Result SOCIAL: Social History Tobacco Use Smoking status: Never Smokeless tobacco: Never Vaping Use Vaping Use: Never used Substance Use Topics Alcohol use: Not Currently Drug use: Never Past Medical History Nursing triage notes/past medical, social, and family hx reviewed by me and I agree except where documented above. Past Medical History: Diagnosis Date Arthritis Avascular necrosis of bone of hip (HCC) Claudication (HCC) Coronary artery disease Herpes zoster Hyperlipidemia Hypertension PAD (peripheral artery disease) (HCC) 01/21/2022 Prostate cancer (HCC) Vascular disease Labs Reviewed NT PRO BNP - Abnormal; Notable for the following components: Result Value NT-Pro BNP 429 (*) All other components within normal limits Narrative: Pride Study Cut-offs Rule In: < /= 50 Years >450 pg/mL 51 Years - 75 Years >900 pg/mL 76 Years - 99 Years >1800 pg/mL Rule Out: All patients <300 pg/mL SEDIMENTATION RATE - Abnormal; Notable for the following components: Sed Rate 30 (*) All other components within normal limits CRP, INFLAMMATION - Abnormal; Notable for the following components: CRP(Inflammation) 35.4 (*) All other components within normal limits TROPONIN - Abnormal; Notable for the following components: Troponin T 117 (*) All other components within normal limits URINALYSIS - Abnormal; Notable for the following components: pH, Urine 7.5 (*) All other components within normal limits Narrative: Microscopic examination is performed on all urinalysis samples and only positive findings are reported. The test for blood on the chemical analytic portion of urinalysis may also be positive due to hemoglobinuria and myoglobinuria and if red blood cells are present they are quantified by microscopic examination. TROPONIN - Abnormal; Notable for the following components: Troponin T 119 (*) All other components within normal limits CBC WITH AUTO DIFFERENTIAL - Abnormal; Notable for the following components: RBC 4.39 (*) Hemoglobin 13.4 (*) Hematocrit 40.7 (*) Lymphocytes Abs 0.70 (*) All other components within normal limits BLOOD CULTURE AEROBIC/ANAEROBIC - Normal BLOOD CULTURE AEROBIC/ANAEROBIC - Normal BASIC METABOLIC PANEL - Normal Narrative: [facility] has implemented the eGFR calculation approach that does not have a coefficient for race that conforms to the NKF-ASN Task Force Recommendations. CBC AND DIFFERENTIAL Narrative: The following orders were created for panel order CBC w/ Diff. Procedure Abnormality Status --------- ------ CBC Auto Differential[[id number]] Abnormal Final result Please view results for these tests on the individual orders. Laboratory results have been reviewed by me. Procedures Allergies Allergies Allergen Reactions Doxycycline Elevated blood pressure, GI intolerance/ nausea/vomiting Medications Previous Medications Medication Sig albuterol (PROVENTIL) 2.5 mg /3 mL (0.083 %) nebulizer solution Take 3 mL (2.5 mg total) by nebulization every 6 (six) hours as needed for wheezing . albuterol 90 mcg/actuation inhaler Inhale 2 (two) puffs every 4 (four) hours as needed for wheezing, shortness of breath or cough . ammonium lactate (LAC-HYDRIN) 12 % lotion Apply topically 2 (two) times a day . aspirin 81 mg cap Take 81 mg by mouth daily . atorvastatin (LIPITOR) 40 MG tablet Take 20 mg by mouth 2 (two) times a day 1/2 tab . fluticasone (FLONASE) 50 mcg/actuation nasal spray 2 (two) sprays by Each Nare route daily . gabapentin (NEURONTIN) 100 MG capsule Take 100 mg by mouth every 8 (eight) hours . losartan (COZAAR) 50 MG tablet Take 1 (one) tablet (50 mg total) by mouth daily . metoprolol tartrate (LOPRESSOR) 50 MG tablet Take 50 mg by mouth 2 (two) times a day . omeprazole (PRILOSEC) 20 MG capsule Take 20 mg by mouth daily . oxyCODONE-acetaminophen (PERCOCET) 5-325 mg per tablet Take 1 tablet by mouth every 6 (six) hours as needed for pain . polyethylene glycol (MIRALAX) 17 gram powder Take 17 (seventeen) g by mouth daily . rivaroxaban (XARELTO) 2.5 mg tablet Take 1 tablet by mouth 2 (two) times a day . tiotropium bromide (SPIRIVA RESPIMAT) 2.5 mcg/actuation Mist Inhale 2 (two) puffs daily Start: 01/22/22. (Patient not taking: No sig reported) zolpidem (AMBIEN) 10 mg tablet Take 1 (one) tablet (10 mg total) by mouth nightly as needed . (Computer voice recognition was used in this documentation, there is a possibility of [id number] errors inherent to this technology that may be missed during proofreading.) Sharron Khan PA-C 11/03/222150 * Aimee Owens RN - 11/03/2022 12:43 PM EST Pt arrives to the ED with multiple complaints. Per daughter patient has fluid on his lungs and there is concern for pneumonia. Daughter also states that there is concern for infection in his foot amputation from 2019. documented in this [id number] Note* ED Attestation Note - Ronnie Montoya MD - 11/03/2022 6:42 PM EST This visit was performed by both a physician and an APC. I personally evaluated and examined the patient. I performed all aspects of the MDM as documented. Patient is an 82-year-old male who presents with several complaints. One is that he started on October 10 with a cough. He has been seen by his primary physician and has actually been to the ER twice for it over this last month. He has been treated with 2 different course of antibiotics. Currently, he is on Levaquin for it, started just a few days ago. At one point in time his x-ray they said showed some fluid and at one point in time they thought his x-ray showed some pneumonia at these outside facilities. Daughter says that he has had a temperature up to 101.5 degrees intermittently throughout this time, but not consistently. Patient says mostly it is just that he has had a cough. He says the cough is worse if he tries to lie down, better if he is up, but he coughs all day long. Deniesany specific chest pain. Then, they have also noted that his legs have been swollen over the last actually several months but slowly getting worse, and he is not on any type of diuretic. He does havea previous history of peripheral vascular disease, and he has had a previous amputation of his left forefoot, and then there was 1 spot on his left forefoot where it opened and he has been leaking some clear fluid from. The patient also complained of some pain in his left biceps area that started. He said he went to get up out of the chair and he felt something, but then it did not swell until later in the day. This was a few days ago. He is on Xarelto for his peripheral artery disease. PHYSICAL EXAM Respiratory: Shows that his lungs actually have bilateral breath sounds, which are clear. Cardiovascular: Regular rate and rhythm. Left Upper Extremity: Appears to have some bruising over the anterior biceps area, and it appears that this most likely seems to be a muscle hematoma. There is no posterior arm swelling in the triceps area, only over the lower anterior biceps, but the biceps muscle itself is intact. Abdomen: Soft and nontender. Lower Extremities: Do have edema noted in both lower extremities to approximately the [id number] calf area bilaterally, but there are no signs of infection. There is no redness. [employer] Work Phone: [phone] Physician Emergency department Note* Sharron Khan PA-C - 11/03/2022 5:46 PM EST Images from the original note were not included. HPI/ROS History obtained by: Patient, daughter, medical records, triage note This patient is a 82 y.o. male with past medical history of CAD, COPD, HLD, HTN, and PAD with left foot amputation who presents to the emergency department with family members with chief complaint ofshortness of breath for the past month. Daughter states he began coughing on 10/10/2022. His cough is productive of mucus. He was initially seen on 10/17/2022 by his PCP for this cough and chest congestion and was started on azithromycin, cefuroxime, and prednisone. He improved some and then seen again on 10/27/2022 by PCP, started on cough syrup with codeine, and had a chest x-ray ordered. PCP called him the next day with chest x-ray results and states that he had fluid on the lungs and that if his symptoms worsen he should go to the ED. Patient felt worse on 10/30/2022 so he went to the ED in [facility]. He had a repeat chest x-ray at this ED that showed a questionable left infrahilar infiltrate. He had a respiratory panel which was completely negative that day. He was discharged on Levaquin and Tessalon Perles which he has been taking, however family is concerned because he is still symptomatic. He also now is endorsing intermittent chest pain for the past 2 weeks approximately. States it is amild discomfort on the left side of his chest. This pain occurs with coughing. Additionally patienthad his left foot amputated in 2019 and lately it has been more swollen than normal and a small area has started to drain fluid. Also states his right foot has been more swollen than baseline. Deniesusing supplemental oxygen at home. He is on Xarelto and 81 mg aspirin. Denies hemoptysis, abdominalpain, nausea, vomiting, fevers, chills, urinary complaints, constipation, or diarrhea. Medical Decision Making I saw and evaluated the patient. I have reviewed the chief complaint, triage note, past medical/surgical, family, and social history. This is an 82-year-old male with COPD and PAD [facility] with shortness of breath and cough for approximately 1 month. His vital signs are unremarkable. On exam he is nontoxic and resting comfortably. Heart regular rate and rhythm. Decreased breath sounds bilaterally. Patient wheezes while coughing and coughs frequently during my exam. Abdomen soft and protuberant but nontender to palpation. Left foot amputation with less than 1 cmopen wound draining a small mount of clear fluid. Swelling to the left lower extremity without overlying skin changes. Right foot with pitting edema as well. Unable to manually palpate dorsalis pedispulse. See photo below. Mild anemia present. No leukocytosis or platelet abnormalities. Sed rate of 30 and CRP 35.4. BNP of429, not highly concerning for this patient with age 82. BMP without electrolyte or renal abnormalities. Urinalysis unremarkable. Blood cultures were obtained. Initial troponin elevated at 117 and repeat troponin elevated at 119. Chest x-ray demonstrated linear densities at lung bases, otherwise overall unremarkable. X-ray of the left foot demonstrated chronic findings without evidence of acute osseous abnormalities. Venous Doppler of the bilateral lower extremities demonstrated no evidence of deep or superficial venous thrombosis. EKG interpreted by ED attending physician demonstrated normal sinus rhythm at [address] of the pulmonary arteries demonstrated no PE and left lower lobe pneumonia. Patient started on azithromycin, Rocephin, and given 20 mg Lasix for his peripheral edema. He was admitted to medicine for his community-acquired pneumonia with elevated troponin and peripheral edema. Heart score of 6. Differential Diagnoses: Pneumonia, PE, stable angina, ACS, DVT, sepsis, osteomyelitis 1. Community acquired pneumonia of left lower lobe of lung 2. Elevated troponin 3. Peripheral edema MDM Data MDM Data: External Documents/Labs Reviewed, X-ray interpretation reviewed, CT interpretation reviewed, Ultrasound interpretation reviewed, and Shared decision making utilized Decision Scores: HEART Score, PERC Rule, Wells Criteria DVT, and Wells Criteria PE Physical Exam Vital signs reviewed. CONSTITUTIONAL: Overall non toxic and resting comfortably EYES: No conjunctival injection. No icterus. HENT: External ears normal, external nose normal. NECK: Trachea midline RESPIRATORY: Wheezes with coughing, coughing frequently on exam. Decreased breath sounds bilaterally CHEST: Equal chest expansion, no tenderness, no crepitus CARDIOVASCULAR: Regular rate and regular rhythm. GASTROINTESTINAL: Abdomen soft, protuberant, non-tender, no guarding rebound or rigidity NEUROLOGICAL: Awake, alert and oriented. CN grossly intact. PSYCHOLOGICAL: The patient's mood and manner are appropriate. INTEGUMENTARY: Warm and dry. MUSCULOSKELETAL: Left foot amputation with less than 1 cm open wound draining a small mount of clear fluid. Swelling to the left lower extremity without overlying skin changes. Right foot with pitting edema as well. Unable to manually palpate dorsalis pedis pulse. Will have RN attempt to Doppler. See photo below Radiographic Imaging (if any) During ED Visit CT Pulmonary Arteries Final Result No evidence for acute pulmonary embolism. Left lower lobe pneumonia. Workstation ID: [id number] XR Chest 1 View Final Result FINDINGS/ 1. Patient is status post sternotomy, somewhat rotated, lordotic. The visualized osseous structuresappear intact. 2. The heart size seems normal. The aorta is tortuous, atherosclerotic. 3. There are some linear densities at lung bases, either scarring or discoid atelectatic changes. There are no focal infiltrates, pleural effusions, pulmonary edema, or pneumothorax. There are a few scattered calcified granulomas within the lungs. KKV/ads Workstation ID: [id number] XR Foot Left 3+ Views (Standard) Final Result Chronic findings without plain film evidence of acute osseous abnormalities. Workstation ID: [id number] Venous Doppler BILATERAL Lower Extremities Final Result SOCIAL: Social History Tobacco Use Smoking status: Never Smokeless tobacco: Never Vaping Use Vaping Use: Never used Substance Use Topics Alcohol use: Not Currently Drug use: Never Past Medical History Nursing triage notes/past medical, social, and family hx reviewed by me and I agree except where documented above. Past Medical History: Diagnosis Date Arthritis Avascular necrosis of bone of hip (HCC) Claudication (HCC) Coronary artery disease Herpes zoster Hyperlipidemia Hypertension PAD (peripheral artery disease) (HCC) 01/21/2022 Prostate cancer (HCC) Vascular disease Labs Reviewed NT PRO BNP - Abnormal; Notable for the following components: Result Value NT-Pro BNP 429 (*) All other components within normal limits Narrative: Pride Study Cut-offs Rule In: < /= 50 Years >450 pg/mL 51 Years - 75 Years >900 pg/mL 76 Years - 99 Years >1800 pg/mL Rule Out: All patients <300 pg/mL SEDIMENTATION RATE - Abnormal; Notable for the following components: Sed Rate 30 (*) All other components within normal limits CRP, INFLAMMATION - Abnormal; Notable for the following components: CRP(Inflammation) 35.4 (*) All other components within normal limits TROPONIN - Abnormal; Notable for the following components: Troponin T 117 (*) All other components within normal limits URINALYSIS - Abnormal; Notable for the following components: pH, Urine 7.5 (*) All other components within normal limits Narrative: Microscopic examination is performed on all urinalysis samples and only positive findings are reported. The test for blood on the chemical analytic portion of urinalysis may also be positive due to hemoglobinuria and myoglobinuria and if red blood cells are present they are quantified by microscopic examination. TROPONIN - Abnormal; Notable for the following components: Troponin T 119 (*) All other components within normal limits CBC WITH AUTO DIFFERENTIAL - Abnormal; Notable for the following components: RBC 4.39 (*) Hemoglobin 13.4 (*) Hematocrit 40.7 (*) Lymphocytes Abs 0.70 (*) All other components within normal limits BLOOD CULTURE AEROBIC/ANAEROBIC - Normal BLOOD CULTURE AEROBIC/ANAEROBIC - Normal BASIC METABOLIC PANEL - Normal Narrative: [facility] has implemented the eGFR calculation approach that does not have a coefficient for race that conforms to the NKF-ASN Task Force Recommendations. CBC AND DIFFERENTIAL Narrative: The following orders were created for panel order CBC w/ Diff. Procedure Abnormality Status --------- ------ CBC Auto Differential[[id number]] Abnormal Final result Please view results for these tests on the individual orders. Laboratory results have been reviewed by me. Procedures Allergies Allergies Allergen Reactions Doxycycline Elevated blood pressure, GI intolerance/ nausea/vomiting Medications Previous Medications Medication Sig albuterol (PROVENTIL) 2.5 mg /3 mL (0.083 %) nebulizer solution Take 3 mL (2.5 mg total) by nebulization every 6 (six) hours as needed for wheezing . albuterol 90 mcg/actuation inhaler Inhale 2 (two) puffs every 4 (four) hours as needed for wheezing, shortness of breath or cough . ammonium lactate (LAC-HYDRIN) 12 % lotion Apply topically 2 (two) times a day . aspirin 81 mg cap Take 81 mg by mouth daily . atorvastatin (LIPITOR) 40 MG tablet Take 20 mg by mouth 2 (two) times a day /2 tab . fluticasone (FLONASE) 50 mcg/actuation nasal spray 2 (two) sprays by Each Nare route daily . gabapentin (NEURONTIN) 100 MG capsule Take 100 mg by mouth every 8 (eight) hours . losartan (COZAAR) 50 MG tablet Take 1 (one) tablet (50 mg total) by mouth daily . metoprolol tartrate (LOPRESSOR) 50 MG tablet Take 50 mg by mouth 2 (two) times a day . omeprazole (PRILOSEC) 20 MG capsule Take 20 mg by mouth daily . oxyCODONE-acetaminophen (PERCOCET) 5-325 mg per tablet Take 1 tablet by mouth every 6 (six) hours as needed for pain . polyethylene glycol (MIRALAX) 17 gram powder Take 17 (seventeen) g by mouth daily . rivaroxaban (XARELTO) 2.5 mg tablet Take 1 tablet by mouth 2 (two) times a day . tiotropium bromide (SPIRIVA RESPIMAT) 2.5 mcg/actuation Mist Inhale 2 (two) puffs daily Start: 01/22/22. (Patient not taking: No sig reported) zolpidem (AMBIEN) 10 mg tablet Take 1 (one) tablet (10 mg total) by mouth nightly as needed . (Computer voice recognition was used in this documentation, there is a possibility of [id number] errors inherent to this technology that may be missed during proofreading.) Sharron Khan PA-C 11/03/222150 [facility] Work Phone: [phone] Emergency department Triage note* Aimee Owens RN - 11/03/2022 12:43 PM EST Pt arrives to the ED with multiple complaints. Per daughter patient has fluid on his lungs and there is concern for pneumonia. Daughter also states that there is concern for infection in his foot amputation from 2019. [id number] History of Present illness Narrative* Violetta Borjas MA - 09/20/2022 11:[address] Sarabia has ordered a carotid duplex. An attempt was made by phone and a letter was mailed with no response. Patient is due for testing for PAD 05/20. documented in this [id number] History of Present illness Narrative* Dahiana Coelho - 07/14/2022 11:00 AM EST Ortho Nurse - Established Patient Intake Room#: 5 Date: 07/14/2022 10:49 AM Patient: Tristin Powell Sr. MR#: [id number] : 1940 Age: 82 y.o. 1yr R SHANNON Pt stated he is still stiff and can't bend over to put his sock on and has pain when doing that.7-8/10 on the pain scale. Pt stated he doesn't having pain when walking and sitting. Referring Physician: Self, Self Insurance: Payor: MEDICARE HU[employer]NA HMO PPO / Plan: MEDICARE HU[employer]NA HMO PPO / Product Type: *No Product type* / Chief Complaint Patient presents with Right Hip - Follow-up Visit Vitals Temp 97.3 F (36.3 C) (Temporal) Ht 1.88 m (6' 2 ) Wt 114.3 kg (252 lb) BMI 32.35 kg/m Pain Recent Labs Lab Results Component Value Date CRP 1.39 09/01/2011 Lab Results Component Value Date SEDRATE 4 09/02/2011 Lab Results Component Value Date WBC 10.0 07/16/2021 HGB 11.7 (L) 07/16/2021 HCT 34.2 (L) 07/16/2021 PLATELET 127 (L) 07/16/2021 MCV 91.6 07/16/2021 History Past Medical History: Diagnosis Date Arthritis CAD (coronary artery disease) 3 stents placed COPD (chronic obstructive pulmonary disease) Essential hypertension, benign GERD (gastroesophageal reflux disease) Hyperlipidemia Prostate cancer Vascular disease Past Surgical History: Procedure Laterality Date ARTHROPLASTY HIP TOTAL ANTERIOR APPROACH Right 07/15/2021 Laterality: Right; Surgeon: Dashawn Silvestre MD; Location: [facility] PERIPHERAL ANGIOPLASTY N/A 08/09/2018 Laterality: N/A; Surgeon: Isaisa Vogt MD; Location[facility] PERIPHERAL STENT PLACEMENT N/A 08/09/2018 Laterality: N/A; Surgeon: Isaias Vogt MD; Location[facility] ATHERECTOMY PERIPHERAL N/A 08/09/2018 Laterality: N/A; Surgeon: Isaias Vogt MD; Location: [facility] CORONARY STENT PLACEMENT 2007 x3 total of 7 AMPUTATION front of left toes ANKLE FRACTURE SURGERY Left plate placed in L ankle CORONARY ARTERY BYPASS GRAFT 3 vessel RADIO/SURGICAL IMPLANT INDEX jul 2010-november 2010 radioactive seeds implanted prostate Family History: His family history includes Coronary Artery Disease in his maternal grandmother, paternal aunt, paternal grandmother, and paternal uncle; Diabetes in his mother; Myocardial Infarctionin his father and mother; No known problems in his daughter, sister, and son; Prostate Cancer in his brother. Social History: His reports that he has never smoked. He has never used smokeless tobacco. He reports that he does not drink alcohol and does not use drugs. Outpatient Medications Prior to Visit Medication Sig Dispense Refill acetaminophen 325 MG tablet Take 2 tablets by mouth every 4 hours as needed for Mild Pain. 50 tablet 1 albuterol (2.5 MG/3ML) 0.083% inhalation solution albuterol sulfate 2.5 mg/3 mL (0.083 %) solution for nebulization ASPIRIN 81 PO Take 81 mg by mouth. atorvastatin 40 MG Tab tablet Take 40 mg by mouth 2 times daily. Takes 1/2 tab bid gabapentin 100 MG Cap capsule Take 300 mg by mouth 3 times daily. losartan 50 MG tablet Take 25 mg by mouth daily. metoprolol succinate 50 MG PO tablet XL Take 50 mg by mouth 2 times daily. polyethylene glycol PO PACK take 1 Packet by mouth 2 times daily. 60 Packet 5 Rivaroxaban 20 MG tablet Take 2.5 mg by mouth 2 times daily. Start in 22 days after the 15mg dose is completed zolpidem 5 MG tablet Take 10 mg by mouth At bedtime as needed for Sleep. celecoxib 200 MG capsule Take 1 capsule by mouth 2 times daily. (Patient not taking: Reported on 01/12/2022) 60 capsule 0 docusate 100 MG capsule Take 1 capsule by mouth 2 times daily. (Patient not taking: Reported on 01/12/2022) 60 capsule 0 methylPREDNIsolone 4 MG Tab Therapy Pack tablet Take 1 tablet by mouth As directed. follow package directions (Patient not taking: Reported on 01/12/2022) 21 tablet 0 omeprazole [address] capsule Take 1 capsule by mouth daily. (Patient not taking: Reported on 01/12/2022) 30 capsule 0 oxyCODONE 5 MG tablet Take 1-2 tabs po q 4-6 hours PRN pain. Wean as tolerated. 40 tablet 0 senna 8.6 MG PO TABS take 1 Tab by mouth daily. (Patient not taking: Reported on 01/12/2022) 30 Tab 5 therapeutic multivitamin-minerals tablet Take 1 tablet by mouth at bedtime. (Patient not taking: Reported on 01/12/2022) 30 tablet 0 No facility-administered medications prior to visit. Current Outpatient Medications: acetaminophen 325 MG tablet, Take 2 tablets by mouth every 4 hours as needed for Mild Pain., Disp: 50 tablet, Rfl: 1 albuterol (2.5 MG/3ML) 0.083% inhalation solution, albuterol sulfate 2.5 mg/3 mL (0.083 %) solutionfor nebulization, Disp: , Rfl: ASPIRIN 81 PO, Take 81 mg by mouth., Disp: , Rfl: atorvastatin 40 MG Tab tablet, Take 40 mg by mouth 2 times daily. Takes 1/2 tab bid, Disp: , Rfl: gabapentin 100 MG Cap capsule, Take 300 mg by mouth 3 times daily. , Disp: , Rfl: losartan 50 MG tablet, Take 25 mg by mouth daily. , Disp: , Rfl: metoprolol succinate 50 MG PO tablet XL, Take 50 mg by mouth 2 times daily., Disp: , Rfl: polyethylene glycol PO PACK, take 1 Packet by mouth 2 times daily., Disp: 60 Packet, Rfl: 5 Rivaroxaban 20 MG tablet, Take 2.5 mg by mouth 2 times daily. Start in 22 days after the 15mg dose is completed, Disp: , Rfl: zolpidem 5 MG tablet, Take 10 mg by mouth At bedtime as needed for Sleep., Disp: , Rfl: celecoxib 200 MG capsule, Take 1 capsule by mouth 2 times daily. (Patient not taking: Reported on 01/12/2022), Disp: 60 capsule, Rfl: 0 docusate 100 MG capsule, Take 1 capsule by mouth 2 times daily. (Patient not taking: Reported on 01/12/2022), Disp: 60 capsule, Rfl: 0 methylPREDNIsolone 4 MG Tab Therapy Pack tablet, Take 1 tablet by mouth As directed. follow packagedirections (Patient not taking: Reported on 01/12/2022), Disp: 21 tablet, Rfl: 0 omeprazole [address] capsule, Take 1 capsule by mouth daily. (Patient not taking: Reported on 01/12/2022), Disp: 30 capsule, Rfl: 0 oxyCODONE 5 MG tablet, Take 1-2 tabs po q 4-6 hours PRN pain. Wean as tolerated., Disp: 40 tablet, Rfl: 0 senna 8.6 MG PO TABS, take 1 Tab by mouth daily. (Patient not taking: Reported on 01/12/2022), Disp:30 Tab, Rfl: 5 therapeutic multivitamin-minerals tablet, Take 1 tablet by mouth at bedtime. (Patient not taking: Reported on 01/12/2022), Disp: 30 tablet, Rfl: 0 Allergies: He has No Known Allergies. * CARLO Evans - 07/14/2022 11:00 AM EST HPI: Patient is here today for evaluation of their operative hip. He is status post total hip arthroplasty. He is about a year out, reports that he is doing well and is pleased with the outcome of the intervention. The hip feels better now than itdid before, and he is not having any new symptoms with it. He does have problems bending over to put sock on but most every day things are pain free. PHYSICAL EXAM: The bilateral lower extremities were evaluated. The operative lower extremity is soft, nontender with full and supple motion of the hip. No pain, no impingement. No instability. The contralateral extremity has full motion, normal stability, no tenderness. Bilateral lower extremities have normal neurovascular status. Skin otherwise intact. Mild pain with external rotation. DIAGNOSTIC STUDIES/INTERPRETATION: Plain film radiographs reviewed. He has a total hip arthroplastyin good position and alignment. No evidence of prosthetic implant loosening or migration. Large HO burden is unchanged from previous imaging. IMPRESSION: Stable status post total hip arthroplasty, doing well. Moderated HO right hip. PLAN: I am pleased with the outcome of intervention. He has made an excellent recovery. I expect continued improvement in strength and mobility moving forward. I recommend followup in 1 years for repeat clinical and radiographic examination or sooner if any new symptoms develop. Tylenol may be usedto manage any occasional aches and pains. He will call with any questions or concerns in the meantime. We have talked extensively about the HO. He is able to manage everyday things without pain. May need HO excision if pain persist. Greater than 20 minutes time was spent in review of the medical records, review of previous imaging, and more than 50% of that time was spent on face to face time with patient. CARLO [facility] I have reviewed the findings of my clinical staff below and agree with their assessment. Ortho Nurse - Established Patient Intake Room#: 5 Date: 07/14/2022 10:49 AM Patient: Tristin Powell Sr. MR#: [id number] : 1940 Age: 82 y.o. 1yr R SHANNON Pt stated he is still stiff and can't bend over to put his sock on and has pain when doing that.7-8/10 on the pain scale. Pt stated he doesn't having pain when walking and sitting. Referring Physician: Self, Self Insurance: Payor: MEDICARE HUMANA HMO PPO / Plan: MEDICARE [employer] PPO / Product Type: *No Product type* / Chief Complaint Patient presents with Right Hip - Follow-up Visit Vitals Temp 97.3 F (36.3 C) (Temporal) Ht 1.88 m (6' 2 ) Wt 114.3 kg (252 lb) BMI 32.35 kg/m Pain Recent Labs Lab Results Component Value Date CRP 1.39 09/01/2011 Lab Results Component Value Date SEDRATE 4 09/02/2011 Lab Results Component Value Date WBC 10.0 07/16/2021 HGB 11.7 (L) 07/16/2021 HCT 34.2 (L) 07/16/2021 PLATELET 127 (L) 07/16/2021 MCV 91.6 07/16/2021 History Past Medical History: Diagnosis Date Arthritis CAD (coronary artery disease) 3 stents placed COPD (chronic obstructive pulmonary disease) Essential hypertension, benign GERD (gastroesophageal reflux disease) Hyperlipidemia Prostate cancer Vascular disease Past Surgical History: Procedure Laterality Date ARTHROPLASTY HIP TOTAL ANTERIOR APPROACH Right 07/15/2021 Laterality: Right; Surgeon: Dashawn Silvestre MD; Location: [facility] PERIPHERAL ANGIOPLASTY N/A 08/09/2018 Laterality: N/A; Surgeon: Isaias Vogt MD; Location[facility] PERIPHERAL STENT PLACEMENT N/A 08/09/2018 Laterality: N/A; Surgeon: Isaias Vogt MD; Location[facility] ATHERECTOMY PERIPHERAL N/A 08/09/2018 Laterality: N/A; Surgeon: Isaias Vogt MD; Location: [facility] CORONARY STENT PLACEMENT 2007 x3 total of 7 AMPUTATION front of left toes ANKLE FRACTURE SURGERY Left plate placed in L ankle CORONARY ARTERY BYPASS GRAFT 3 vessel RADIO/SURGICAL IMPLANT INDEX jul 2010-november 2010 radioactive seeds implanted prostate Family History: His family history includes Coronary Artery Disease in his maternal grandmother, paternal aunt, paternal grandmother, and paternal uncle; Diabetes in his mother; Myocardial Infarctionin his father and mother; No known problems in his daughter, sister, and son; Prostate Cancer in his brother. Social History: His reports that he has never smoked. He has never used smokeless tobacco. He reports that he does not drink alcohol and does not use drugs. Outpatient Medications Prior to Visit Medication Sig Dispense Refill acetaminophen 325 MG tablet Take 2 tablets by mouth every 4 hours as needed for Mild Pain. 50 tablet 1 albuterol (2.5 MG/3ML) 0.083% inhalation solution albuterol sulfate 2.5 mg/3 mL (0.083 %) solution for nebulization ASPIRIN 81 PO Take 81 mg by mouth. atorvastatin 40 MG Tab tablet Take 40 mg by mouth 2 times daily. Takes 1/2 tab bid gabapentin 100 MG Cap capsule Take 300 mg by mouth 3 times daily. losartan 50 MG tablet Take 25 mg by mouth daily. metoprolol succinate 50 MG PO tablet XL Take 50 mg by mouth 2 times daily. polyethylene glycol PO PACK take 1 Packet by mouth 2 times daily. 60 Packet 5 Rivaroxaban 20 MG tablet Take 2.5 mg by mouth 2 times daily. Start in 22 days after the 15mg dose is completed zolpidem 5 MG tablet Take 10 mg by mouth At bedtime as needed for Sleep. celecoxib 200 MG capsule Take 1 capsule by mouth 2 times daily. (Patient not taking: Reported on 01/12/2022) 60 capsule 0 docusate 100 MG capsule Take 1 capsule by mouth 2 times daily. (Patient not taking: Reported on 01/12/2022) 60 capsule 0 methylPREDNIsolone 4 MG Tab Therapy Pack tablet Take 1 tablet by mouth As directed. follow package directions (Patient not taking: Reported on 01/12/2022) 21 tablet 0 omeprazole [address] capsule Take 1 capsule by mouth daily. (Patient not taking: Reported on 01/12/2022) 30 capsule 0 oxyCODONE 5 MG tablet Take 1-2 tabs po q 4-6 hours PRN pain. Wean as tolerated. 40 tablet 0 senna 8.6 MG PO TABS take 1 Tab by mouth daily. (Patient not taking: Reported on 01/12/2022) 30 Tab 5 therapeutic multivitamin-minerals tablet Take 1 tablet by mouth at bedtime. (Patient not taking: Reported on 01/12/2022) 30 tablet 0 No facility-administered medications prior to visit. Current Outpatient Medications: acetaminophen 325 MG tablet, Take 2 tablets by mouth every 4 hours as needed for Mild Pain., Disp: 50 tablet, Rfl: 1 albuterol (2.5 MG/3ML) 0.083% inhalation solution, albuterol sulfate 2.5 mg/3 mL (0.083 %) solutionfor nebulization, Disp: , Rfl: ASPIRIN 81 PO, Take 81 mg by mouth., Disp: , Rfl: atorvastatin 40 MG Tab tablet, Take 40 mg by mouth 2 times daily. Takes 1/2 tab bid, Disp: , Rfl: gabapentin 100 MG Cap capsule, Take 300 mg by mouth 3 times daily. , Disp: , Rfl: losartan 50 MG tablet, Take 25 mg by mouth daily. , Disp: , Rfl: metoprolol succinate 50 MG PO tablet XL, Take 50 mg by mouth 2 times daily., Disp: , Rfl: polyethylene glycol PO PACK, take 1 Packet by mouth 2 times daily., Disp: 60 Packet, Rfl: 5 Rivaroxaban 20 MG tablet, Take 2.5 mg by mouth 2 times daily. Start in 22 days after the 15mg dose is completed, Disp: , Rfl: zolpidem 5 MG tablet, Take 10 mg by mouth At bedtime as needed for Sleep., Disp: , Rfl: celecoxib 200 MG capsule, Take 1 capsule by mouth 2 times daily. (Patient not taking: Reported on 01/12/2022), Disp: 60 capsule, Rfl: 0 docusate 100 MG capsule, Take 1 capsule by mouth 2 times daily. (Patient not taking: Reported on 01/12/2022), Disp: 60 capsule, Rfl: 0 methylPREDNIsolone 4 MG Tab Therapy Pack tablet, Take 1 tablet by mouth As directed. follow packagedirections (Patient not taking: Reported on 01/12/2022), Disp: 21 tablet, Rfl: 0 omeprazole [address] capsule, Take 1 capsule by mouth daily. (Patient not taking: Reported on 01/12/2022), Disp: 30 capsule, Rfl: 0 oxyCODONE 5 MG tablet, Take 1-2 tabs po q 4-6 hours PRN pain. Wean as tolerated., Disp: 40 tablet, Rfl: 0 senna 8.6 MG PO TABS, take 1 Tab by mouth daily. (Patient not taking: Reported on 01/12/2022), Disp:30 Tab, Rfl: 5 therapeutic multivitamin-minerals tablet, Take 1 tablet by mouth at bedtime. (Patient not taking: Reported on 01/12/2022), Disp: 30 tablet, Rfl: 0 Allergies: He has No Known Allergies. documented in this [facility]09-06-2022 Evaluation note* Encounter Date Diagnosis Assessment Notes Treatment Notes Treatment Clinical Notes Apr, Peripheral vascular disease, unspecified (ICD-10 - I73.9) Apr, Other specified postprocedural states (ICD-10 - Z98.890) Apr, Other Peripheral vasc ular occlusive disease I reviewed the arteriographic findings with the patient and talked about his current symptoms. His left leg has a patent bypass graft and does not have further options for reconstruction. His right leg has severe tibial level occlusive disease and by ultrasound examination he does not have good conduit with the exception of some upper arm cephalic vein bilaterally. There is also potentially usable basilic vein. Given his current findings and complaints with no open wounds or ulceration I believe he should be followed medically. I have reviewed the films with the patient so that he can understand the nature of his occlusive disease and how we arrived at that decision. We will keep a close eye on him as he is at risk for tissue loss and we will see him back in 6 months. [facility] 08-23-2022 Evaluation note* Encounter Date Diagnosis Assessment Notes Treatment Notes Treatment Clinical Notes Mar, Peripheral vascular disease, unspecified (ICD-10 - I73.9) Mar, Other specified postprocedural states (ICD-10 - Z98.890) Mar, Other Peripheral arterial occlusive disease It seems likely that he has a failed left lower extremity bypass resulting in new rest pain in his left foot and has severe peripheral vascular occlusive disease of his right lower extremity with rest pain. He will undergo diagnostic arteriogram to define his anatomy and look at options for reconstruction. He understands and agrees with that plan. [facility] Other 08-22-2022 History of Present illness Narrative* Aaron Fenton DPM - 04/18/2022 5:23 PM EDT Refer to note during admission documented in this [id number] Hospital course Narrative* Alexander Pascual MD - 04/15/2022 6:51 PM EDT Images from the original note were not included. [facility] DISCHARGE SUMMARY Tristin Powell Account: [id number] Admitted: 04/14/2022 Discharge Date/Time: 04/15/22 7:44 PM Clinical Summary Handoff to PCP Routine hospital follow up Tristin Powell is a 82 y.o. male with a history of HTN, HFpEF, PAD with bypass/stenting/amputation, CAD who recently discharged 01/21/22 after cellulitis L ankle who presented to [facility] Observation 04/14/2022 with worsening R leg pain and outpatient u/s showing stenois of superficial femoral artery and occlusion of popliteal artery. Vascular surgery consulted and requested [facility] obs admission. Ct angiowith lower extrem with no change since 12/2021. He was discharged home. PAD: R leg pain, known PAD. YAMILE 04/14/22 with 0.59 showing mild small vessel disease transmetarsal Rfoot. CT angio aorta with runoff 04/14/22 with no change since 12/2021, L common femoral to tibioperoneal trunk bypass graft patent with single vessel runoff to L lower extremity below level of anastomosis. Focal stenosis distal 3rd of R SFA with occlusion of R popliteal and single vessel reconstitution of small peroneal artery at level of R ankle. YAMILE with mod PAD in R YAMILE. Aspirin, xarelto, statin continued. Dr. Sarabia of vascular surgery recommended no further PAD workup. Podiatry also saw pt. Discharge Medications Medication List CONTINUE taking these medications * albuterol 2.5 mg /3 mL (0.083 %) nebulizer solution Commonly known as: PROVENTIL Take 3 mL (2.5 mg total) by nebulization every 6 (six) hours as needed for wheezing . * albuterol 90 mcg/actuation inhaler Inhale 2 (two) puffs every 4 (four) hours as needed for wheezing, shortness of breath or cough . ammonium lactate 12 % lotion Commonly known as: LAC-HYDRIN Apply topically 2 (two) times a day . aspirin 81 mg Cap atorvastatin 40 MG tablet Commonly known as: LIPITOR fluticasone propionate 50 mcg/actuation nasal spray Commonly known as: FLONASE 2 (two) sprays by Each Nare route daily . gabapentin 100 MG capsule Commonly known as: NEURONTIN losartan 50 MG tablet Commonly known as: COZAAR metoprolol tartrate 50 MG tablet Commonly known as: LOPRESSOR omeprazole 20 MG capsule Commonly known as: PRILOSEC oxyCODONE-acetaminophen 5-325 mg per tablet Commonly known as: PERCOCET polyethylene glycol 17 gram powder Commonly known as: MIRALAX rivaroxaban 2.5 mg tablet Commonly known as: XARELTO tiotropium bromide 2.5 mcg/actuation Mist Commonly known as: SPIRIVA RESPIMAT Inhale 2 (two) puffs daily Start: 01/22/22. zolpidem 10 mg tablet Commonly known as: AMBIEN * This list has 2 medication(s) that are the same as other medications prescribed for you. Read thedirections carefully, and ask your doctor or other care provider to review them with you. Physician(s) Family: Flash Lovelace MD, , Address: [address] [place] [id number] Follow Up: Mohsen Sarabia MD [id number] [facility] [address] [place] [id number] Follow up Call office to schedule followup appointment in ~2 weeks Flash Lovelace MD [address] [facility] [id number] Follow up As needed [facility] Additional Information: Patient seen and examined day of discharge. For more information regarding patient's care, including complete radiology reports, please contact [facility] at Patient instructions, including activity, were given to the patient/family at discharge. Please seethe After Visit Summary in the medical record for details. Completed by: Alexander Pascual on 04/15/22, 7:44 PM documented in this [id number] Note* Plan of Care - Lizz Damon RN - 04/15/2022 6:18 PM EDT Problem: Falls, Risk of Goal: Absence of falls Outcome: Partially Met Problem: Pain Goal: Manage acute pain Outcome: Partially Met Goal: Manage chronic pain Outcome: Partially Met Goal: Reduced pain sensation Outcome: Partially Met Goal: Achievement of comfort function goal Outcome: Partially Met Problem: Actual or potential alteration in health Goal: Absence of healthcare acquired conditions Outcome: Partially Met Goal: Knowledge of Interdisciplinary Plan of Care Outcome: Partially Met Goal: Knowledge of Enviroment Outcome: Partially Met Problem: Falls, Risk of Goal: Absence of falls Outcome: Partially Met [id number] Miscellaneous Notes* Plan of Care - Lizz Damon RN - 04/15/2022 6:18 PM EDT Problem: Falls, Risk of Goal: Absence of falls Outcome: Partially Met Problem: Pain Goal: Manage acute pain Outcome: Partially Met Goal: Manage chronic pain Outcome: Partially Met Goal: Reduced pain sensation Outcome: Partially Met Goal: Achievement of comfort function goal Outcome: Partially Met Problem: Actual or potential alteration in health Goal: Absence of healthcare acquired conditions Outcome: Partially Met Goal: Knowledge of Interdisciplinary Plan of Care Outcome: Partially Met Goal: Knowledge of Enviroment Outcome: Partially Met Problem: Falls, Risk of Goal: Absence of falls Outcome: Partially Met documented in this [id number] History of Present illness Narrative* Rima Huff Bryce, DO - 04/15/2022 1:01 PM EDT [facility] Tristin Powell 1940 [id number] Assessment/Plan: Tristin Powell is a 82 y.o. male with a history of HTN, HFpEF, PAD with bypass/stenting/amputation, CAD who recently discharged 01/21/22 after cellulitis L ankle who presented to [facility] Observation 04/14/2022 with worsening R leg pain and outpatient u/s showing stenois of superficial femoral artery and occlusion of popliteal artery. Vascular surgery consulted and requested [facility] obs admission. Ct angiowith lower extrem with no change since 12/2021. PAD: R leg pain, known PAD. YAMILE 04/14/22 with 0.59 showing mild small vessel disease transmetarsal Rfoot. CT angio aorta with runoff 04/14/22 with no change since 12/2021, L common femoral to tibioperoneal trunk bypass graft patent with single vessel runoff to L lower extremity below level of anastomosis. Focal stenosis distal 3rd of R SFA with occlusion of R popliteal and single vessel reconstitution of small peroneal artery at level of R ankle. YAMILE with mod PAD in R YAMILE. Aspirin xarelto statin continued. Dr. Sarabia of vascular surgery recommended podiatry consult, but no further PAD workup. HTN: Home meds HFpEF: Hx Echo 09/2018 ef 55-60%. Not on diuretics. CAD: CABG 2016. TTE 09/2018 EF 55-60% reduced RV function LV hypertrophy and diastolic dysfunction. BB aspirin statin xarelto. Carotid stenosis: Hx 50-69% bilateral in 03/2021. As above. Code Status: Full unv Current Living Situation: Home Estimated discharge date:04/15/22 Subjective: Patient new to [place], seen and examined, with labs/imaging reviewed and summarized above in the assessment and plan. Denies cp, sob, n/v/c/f/n/v/abd pain, GI or complaints. Denies headache, new neuro changes including weakness, change in sensation, dizziness, lightheadedness. Concerned about his pain. Assured no acute PAD issues per imaging and surgery. Physical Exam: BP (!) 163/72 Pulse 63 Temp 97.9 F (36.6 C) (Oral) Resp 16 Ht 6' 2 Wt 112 kg (247 lb) SpO2 94% BMI 31.71 kg/m General: NAD Eyes: EOMI ENT: neck supple Cardiovascular: Regular rate. Respiratory: Clear to auscultation Gastrointestinal: Soft, non tender Genitourinary: no suprapubic tenderness Musculoskeletal: No edema. Skin: warm, dry Neuro: Alert. Psych: Mood appropriate. Labs, Imaging and Studies reviewed: Lab Results Component Value Date GLUCOSE 93 04/14/2022 CALCIUM 9.5 04/14/2022 NA 141 04/14/2022 K 4.2 04/14/2022 CL 105 04/14/2022 BUN 13 04/14/2022 CREATININE 0.96 04/14/2022 Lab Results Component Value Date WBC 5.69 04/14/2022 HGB 14.0 04/14/2022 HCT 41.7 04/14/2022 MCV 93.3 04/14/2022 PLT 179 04/14/2022 Lab Results Component Value Date ALT 25 10/04/2018 AST 25 10/04/2018 ALKPHOS 109 10/04/2018 BILITOT 0.5 10/04/2018 Lab Results Component Value Date INR 1.1 04/14/2022 documented in this [id number] Consult note* Darrick Calixto DO - 04/15/2022 2:37 AM EDTAssociated Order(s): IP CONSULT TO VASCULAR SURGERY VASCULAR SURGERY CONSULT Patient Name: Tristin Powell Reason for Consult: PAD ASSESSMENT AND PLAN Tristin Powell is a 82 y.o. male with history of PAD, s/p L transmetatarsal amputation (2019, Dr. Mann), s/p peroneal femoral bypass R saphenous vein harvest (2019, Dr. Sarabia), CAD s/p CABG x3 who presented to [facility] on 04/14/2022 with CLI of RLE. 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 Sarabia to eval in am - Discussed with Dr. Cornell Calixto, DO General Surgery PGY-2 Please contact surgical editorial intern distribution designer 5PM-6AM and weekends - #[phone] VTS Pager - #[phone] HISTORY OF PRESENT ILLNESS Tristin Powell is a 82 y.o. male with history of PAD, s/p L transmetatarsal amputation (2019, Dr. Mann), s/p peroneal femoral bypass R saphenous vein harvest (2019, Dr. Sarabia), CAD s/p CABG x3 who presented to [facility] on 04/14/2022 with CLI of RLE. Patient presenting with 6 weeks of worsened right lower extremity pain. Patient is limited in his mobility due to his left-sided TMA. Patient reports increasing numbness and pain in his foot as well as claudication symptoms while ambulating. Patient was directed to [place] by his PCP for evaluation. Per discussion with patient and his son, his lower extremity changes are chronic in nature and he does not have an acute surgical emergency. Patient given the option of outpatient follow-up given these nonacute changes however patient request to stay until the morning to see Dr. Sarabia for evaluation as he lives an hour and in a snf and has difficulty getting here to see her. Review of Systems Constitutional: no fever, no weight loss Eyes: No diplopia ENT: No sinus drainage CV: No chest pain. No ankle swelling Resp: No dyspnea. No wheezing GI: no abd pain, no diarrhea, no N/V : No dysuria Neuro: No headache Integumentary: No skin rash MuscSkel: No arthralgias Endo: No polyuria PAST MEDICAL, SURGICAL, FAMILY, SOCIAL HISTORY Past Medical History: Diagnosis Date Arthritis Avascular necrosis of bone of hip (HCC) Claudication (HCC) Coronary artery disease Herpes zoster Hyperlipidemia Hypertension PAD (peripheral artery disease) ([facility]) 01/21/2022 Prostate cancer ([facility]) Vascular disease Past Surgical History: Procedure Laterality Date 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/08/2018 Procedure: LEFT MIDFOOT AMPUTATION; Surgeon: Flynn Mann DPM; Location: [facility]; Service: Podiatry ANKLE SURGERY Left BYPASS PERONEAL FEMORAL Right 09/07/2018 Procedure: BYPASS PERONEAL FEMORAL, RIGHT SAPHENOUS VEIN HARVEST, COMPLETION ANGIOGRAM; Surgeon: Mohsen Sarabia MD; Location: [facility] NEURO OR; Service: Cardiovascular CARDIAC CATHETERIZATION Left 09/05/2018 Procedure: Angio Lower Extremity; Surgeon: Ben Hahn MD; 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; Service: Cardiovascular CARDIAC SURGERY 2017 triple bypass EGD N/A 10/10/2018 Procedure: ESOPHAGOGASTRODUODENOSCOPY; Surgeon: Ben Jensen MD; Location: [facility]; Service: Gastroenterology EYE SURGERY Right 2015 FOOT SURGERY ORTHOPEDIC SURGERY STENT PLACEMENT Family History Problem Relation Age of Onset No Known Problems Mother Heart disease Father Prostate cancer Brother Cancer Paternal Aunt Social History Socioeconomic History Marital status: Tobacco Use Smoking status: Never Smokeless tobacco: Never Vaping Use Vaping Use: Never used Substance and Sexual Activity Alcohol use: Not Currently Drug use: Never Sexual activity: Not Currently PHYSICAL EXAM VITALS PACU Vitals 04/15/22 0126 BP: Pulse: Resp: 16 Temp: SpO2: PHYSICAL EXAM General: Awake and alert, no acute distress Head: Normocephalic, atraumatic Eyes: No scleral icterus, EOM grossly intact Neck: Trachea midline, soft Cardiovascular: Hemodynamically stable, reg rate Pulmonary: Nonlabored breathing, equal chest rise Extremities: L TMA, b/l legs warm, no non-healing wounds, R AT/PT signals, L DP/PT signals Skin: Dry and intact, no obvious rash Neurological: LUU, no gross focal deficits GI: Abd soft, nTTP, n-distended, no peritoneal signs IMAGING/LABS Interval imaging and laboratory results reviewed Associated attestation - Mohsen Sarabia MD - 04/15/2022 7:54 AM EDT Patient seen and examined. I have personally reviewed all pertinent labs, radiological studies and records. I have personally examined the patient and agree with resident/ARTIFICIAL FLOWER MAKER/PA assessment and plan with the following additional findings. Pt describes a several week history of swelling in the foot and ankle, the ankle feeling tight , and pain with weight bearing. He also describes numbness in the foot and feeling like there are rocksunder the ball of his foot. On my exam the foot is WWP with doppler signals. ABIs are not drastically changed from one year prior and CTA is unchanged from one done back in December. His symptoms are not consistent with arterial ischemia and given that his perfusion has not changed, I believe other causes of foot pain should be investigated: neuropathy, gout, etc. We will ask podiatry to evaluate as well. In any case I do not think there is anything limb threatening which would require inpatient admission. If further work up is needed it can be done as an outpatient. [employer] Work Phone: [phone] Consult note* Darrick Calixto, - 04/15/2022 2:37 AM EDTAssociated Order(s): IP CONSULT TO VASCULAR SURGERY VASCULAR SURGERY CONSULT Patient Name: Tristin Powell Reason for Consult: PAD ASSESSMENT AND PLAN Tristin Powell is a 82 y.o. male with history of PAD, s/p L transmetatarsal amputation (2019, Dr. Mann), s/p peroneal femoral bypass R saphenous vein harvest (2019, Dr. Sarabia), CAD s/p CABG x3 who presented to [facility] on 04/14/2022 with CLI of RLE. 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 Sarabia to eval in am - Discussed with Dr. Cornell Calixto, DO General Surgery PGY-2 Please contact surgical editorial intern distribution designer 5PM-6AM and weekends - #[phone] CAS Pager - #[phone] HISTORY OF PRESENT ILLNESS Tristin Powell is a 82 y.o. male with history of PAD, s/p L transmetatarsal amputation (2019, Dr. Mann), s/p peroneal femoral bypass R saphenous vein harvest (2019, Dr. Sarabia), CAD s/p CABG x3 who presented to [facility] on 04/14/2022 with CLI of RLE. Patient presenting with 6 weeks of worsened right lower extremity pain. Patient is limited in his mobility due to his left-sided TMA. Patient reports increasing numbness and pain in his foot as well as claudication symptoms while ambulating. Patient was directed to [place] by his PCP for evaluation. Per discussion with patient and his son, his lower extremity changes are chronic in nature and he does not have an acute surgical emergency. Patient given the option of outpatient follow-up given these nonacute changes however patient request to stay until the morning to see Dr. Sarabia for evaluation as he lives an hour and in a snf and has difficulty getting here to see her. Review of Systems Constitutional: no fever, no weight loss Eyes: No diplopia ENT: No sinus drainage CV: No chest pain. No ankle swelling Resp: No dyspnea. No wheezing GI: no abd pain, no diarrhea, no N/V : No dysuria Neuro: No headache Integumentary: No skin rash MuscSkel: No arthralgias Endo: No polyuria PAST MEDICAL, SURGICAL, FAMILY, SOCIAL HISTORY Past Medical History: Diagnosis Date Arthritis Avascular necrosis of bone of hip (HCC) Claudication (HCC) Coronary artery disease Herpes zoster Hyperlipidemia Hypertension PAD (peripheral artery disease) ([facility]) 01/21/2022 Prostate cancer (HCC) Vascular disease Past Surgical History: Procedure Laterality Date 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/08/2018 Procedure: LEFT MIDFOOT AMPUTATION; Surgeon: Flynn Mann DPM; Location: [facility]; Service: Podiatry ANKLE SURGERY Left BYPASS PERONEAL FEMORAL Right 09/07/2018 Procedure: BYPASS PERONEAL FEMORAL, RIGHT SAPHENOUS VEIN HARVEST, COMPLETION ANGIOGRAM; Surgeon: Mohsen Sarabia MD; Location: [facility]UR[facility] OR; Service: Cardiovascular CARDIAC CATHETERIZATION Left 09/05/2018 Procedure: Angio Lower Extremity; Surgeon: Ben Hahn MD; 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; Service: Cardiovascular CARDIAC SURGERY 2017 triple bypass EGD N/A 10/10/2018 Procedure: ESOPHAGOGASTRODUODENOSCOPY; Surgeon: Ben Jensen MD; Location: [facility]; Service: Gastroenterology EYE SURGERY Right 2015 FOOT SURGERY ORTHOPEDIC SURGERY STENT PLACEMENT Family History Problem Relation Age of Onset No Known Problems Mother Heart disease Father Prostate cancer Brother Cancer Paternal Aunt Social History Socioeconomic History Marital status: Tobacco Use Smoking status: Never Smokeless tobacco: Never Vaping Use Vaping Use: Never used Substance and Sexual Activity Alcohol use: Not Currently Drug use: Never Sexual activity: Not Currently PHYSICAL EXAM VITALS PACU Vitals 04/15/22 0126 BP: Pulse: Resp: 16 Temp: SpO2: PHYSICAL EXAM General: Awake and alert, no acute distress Head: Normocephalic, atraumatic Eyes: No scleral icterus, EOM grossly intact Neck: Trachea midline, soft Cardiovascular: Hemodynamically stable, reg rate Pulmonary: Nonlabored breathing, equal chest rise Extremities: L TMA, b/l legs warm, no non-healing wounds, R AT/PT signals, L DP/PT signals Skin: Dry and intact, no obvious rash Neurological: LUU, no gross focal deficits GI: Abd soft, nTTP, n-distended, no peritoneal signs IMAGING/LABS Interval imaging and laboratory results reviewed Associated attestation - Mohsen Sarabia MD - 04/15/2022 7:54 AM EDT Patient seen and examined. I have personally reviewed all pertinent labs, radiological studies and records. I have personally examined the patient and agree with resident/ARTIFICIAL FLOWER MAKER/PA assessment and plan with the following additional findings. Pt describes a several week history of swelling in the foot and ankle, the ankle feeling tight , and pain with weight bearing. He also describes numbness in the foot and feeling like there are rocksunder the ball of his foot. On my exam the foot is WWP with doppler signals. ABIs are not drastically changed from one year prior and CTA is unchanged from one done back in December. His symptoms are not consistent with arterial ischemia and given that his perfusion has not changed, I believe other causes of foot pain should be investigated: neuropathy, gout, etc. We will ask podiatry to evaluate as well. In any case I do not think there is anything limb threatening which would require inpatient admission. If further work up is needed it can be done as an outpatient. documented in this [id number] Emergency department Note* Rose Bautista RN - 04/15/2022 12:13 AM EDT Patient moved into hospital bed [id number] Emergency department Note* Rose Bautista RN - 04/15/2022 12:13 AM EDT Patient moved into hospital bed * MIGUE Berumen - 04/14/2022 11:24 PM EDT [facility] to write admission orders [phone]. * Carson Brock MD - 04/14/2022 8:24 PM EDT [facility] EMERGENCY DEPARTMENT PCP - Flash Lovelace MD Chief Complaint Patient presents with Leg Swelling HPI MEDICAL DECISION MAKING 82-year-old male presents to [facility] emergency department chief complaint of right leg pain. Patient has a history of underlying arterial disease to his lower extremities. He is actually required amputation to his left foot before. Patient reports over the past 5 to6 weeks he has developed some increasing pain to his right leg noting primarily from the villeda downwards. Patient reports that it seems to have worsened over the past 1 week and he brought it up to family member. He had an ultrasound ordered by his doctor at [facility] with findings concerningfor stenosis to the superficial femoral artery as well as an occlusion of his popliteal artery. His primary doctor recommended he present here for evaluation from his vascular surgeon Dr. Sarabia and patient presents here via triage. Patient reports compliance with home medications including anticoagulation with Xarelto and aspirin. 82-year-old male presents to [facility] emergency department chief plaint of right foot pain. On examination patient is resting comfortably. He is noted to be hypertensive. His heart is regularrate and rhythm his lungs appear clear. His abdomen is soft and nontender. Extremities demonstrate partial amputation of his left foot. He demonstrates some tenderness at his right lower leg from themid lower leg downwards. He has no palpable posterior tibial pulses however he has dopplerable dorsalis pedis pulse to his right leg as well as dopplerable posterior tibial pulse. He has a dopplerable posterior tibial pulse as well to his left foot however it appears more prominent to his right side. He does have a cap refill less than 3 seconds throughout. At this time patient is had laboratory studies performed base metabolic with a creatinine 0.96. His I paged out spoke with the vascular surgery service. At this time given his established history with Dr. Sarabia with vascular surgery will defer additional imaging to their service patient with most recent CT angio of the abdominal aorta with right lower extremity runoff from December reviewed demonstrating right peroneal artery occluded proximally but reconstituted flow and provides down of blood supply to the right foot. Vascular surgery has been consulted at this time. At this time they are requesting patient be hospitalized to medical observation bed. Patient is otherwise resting comfortably at this time. He will be admitted to the [facility] observation unit. CLINICAL IMPRESSION 1. PAD (peripheral artery disease) (HCC) 2. Pain of right lower extremity 3. Hypertension, unspecified type Follow-up Information Follow-up information has not been specified. Contact information for after-discharge care Follow-up information has not been specified. . Labs Reviewed CBC WITH AUTO DIFFERENTIAL - Abnormal; Notable for the following components: Result Value RBC 4.47 (*) Lymphocytes Abs 0.85 (*) All other components within normal limits BASIC METABOLIC PANEL - Normal Narrative: [facility] has implemented the eGFR calculation approach that does not have a coefficient for race that conforms to the NKF-ASN Task Force Recommendations. PT/INR - Normal Narrative: During the induction phase of oral anticoagulation, the INR may not reflect the anticoagulation status of the patient. Therapeutic ranges for INR's are: Most clinical situations: INR 2.0-3.0 Mechanical Prosthetic Valve: INR 2.5-3.5 Critical: INR >5.0 COVID-19, MOLECULAR CBC AND DIFFERENTIAL Narrative: The following orders were created for panel order CBC w/ Diff. Procedure Abnormality Status --------- ------ CBC Auto Differential[[id number]] Abnormal Final result Please view results for these tests on the individual orders. Radiographic Imaging (if any) During ED Visit US Doppler ankle/brachial index Final Result CT Angiogram Abdominal Aorta With Lower Extremity Preliminary Result 1. Overall no significant change from prior imaging in December. 2. Left common femoral to tibioperoneal trunk bypass graft is patent. Single- vessel runoff in the left lower extremity below the level of the anastomosis. 3. Focal stenosis of the distal 3rd of the right SFA with occlusion of the right popliteal artery and single-vessel reconstitution of a small peroneal artery at the level of the right ankle. 4. Severe aortic atherosclerosis without aneurysm or dissection. 5. Chronic findings including severe pancolonic diverticulosis. [employer] Workstation ID: [id number] Medications Ordered/Given During ED Visit Medications sodium chloride (PF) (NS) flush 5 mL (has no administration in time range) And sodium chloride 0.9% (NS) (has no administration in time range) iopamidoL (ISOVUE-370) 76 % injection 75 mL (has no administration in time range) sodium chloride (PF) (NS) 0.9 % contrast line flush 10 mL (10 mL Intravenous Given 04/14/222131) And sodium chloride (PF) (NS) 0.9 % contrast line flush 80 mL (80 mL Intravenous Given 04/14/222130) iopamidoL (ISOVUE-370) 76 % injection 125 mL (125 mL Intravenous Contrast Administered 04/14/222129) fentaNYL (SUBLIMAZE) injection 50 mcg (50 mcg Intravenous Given 04/14/222119) PROCEDURES (if any, during ED visit): Procedures Review of Systems Constitutional: No fevers, no unexpected weight change Skin: No color changes Eyes: No discharge ENMT: No drooling Respiratory: No stridor Genitourinary: No dysuria Endocrine: No polyphagia Neurologic: No new face asymmetry Psychiatric: No self injury Hematologic/Lymphatic: No new easy bruising Allergic/Immunologic: No urticaria All systems reviewed negative except as mentioned above. Review of Systems Constitutional: Negative for fatigue and fever. Respiratory: Negative for cough and wheezing. Cardiovascular: Negative for chest pain, palpitations and leg swelling. Gastrointestinal: Negative for abdominal pain, nausea and vomiting. Genitourinary: Negative for flank pain. Musculoskeletal: Positive for myalgias. Skin: Negative for color change, pallor, rash and wound. Neurological: Negative for weakness, numbness and headaches. Physical Exam Vital Signs During ED Visit (as charted by nursing) Patient Vitals for the past 24 hrs: BP Temp Temp src Pulse Resp SpO2 Height Weight 04/14/22 2215 (!) 179/75 -- -- 77 16 -- -- -- 04/14/22 2120 -- -- -- -- 16 -- -- -- 04/14/22 2100 (!) 161/77 -- -- 77 12 96 % -- -- 04/14/222006 (!) 180/71 -- -- 81 18 97 % -- -- 04/14/22 1935 (!) 200/95 98.4 F (36.9 C) Oral 70 15 95 % 6' 2 112 kg (247 lb) Physical Exam Vitals and nursing note reviewed. Constitutional: General: He is not in acute distress. Appearance: Normal appearance. He is well-developed and normal weight. He is not ill-appearing, toxic-appearing or diaphoretic. HENT: Head: Normocephalic and atraumatic. Right Ear: External ear normal. Left Ear: External ear normal. Nose: Nose normal. Eyes: General: No scleral icterus. Right eye: No discharge. Left eye: No discharge. Conjunctiva/sclera: Conjunctivae normal. Neck: Vascular: No JVD. Trachea: No tracheal deviation. Cardiovascular: Rate and Rhythm: Normal rate and regular rhythm. Pulses: Normal pulses. Heart sounds: Normal heart sounds. Pulmonary: Effort: Pulmonary effort is normal. No respiratory distress. Breath sounds: Normal breath sounds. No stridor. No wheezing, rhonchi or rales. Chest: Chest wall: No tenderness. Abdominal: General: There is no distension. Palpations: Abdomen is soft. There is no mass. Tenderness: There is no abdominal tenderness. There is no guarding or rebound. Hernia: No hernia is present. Musculoskeletal: General: No swelling, tenderness, deformity or signs of injury. Normal range of motion. Cervical back: Normal range of motion. No rigidity or tenderness. Right lower leg: Edema (trace RLE) present. Left lower leg: No edema. Comments: Patient with dopplerable dorsalis pedis as well as posterior tibial pulses on the right lower extremity. Patient with less prominent dopplerable pulse to left lower extremity. 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 Trace edema to the right lower extremity slightly more prominent than that to the left on examination. Skin: General: Skin is warm. Capillary Refill: Capillary refill takes less than 2 seconds. Coloration: Skin is not jaundiced or pale. Findings: No bruising, erythema, lesion or rash. Neurological: General: No focal deficit present. Mental Status: He is alert and oriented to person, place, and time. Mental status is at baseline. Cranial Nerves: No cranial nerve deficit. Sensory: No sensory deficit. Motor: No weakness. Past Medical History Past Medical History: Diagnosis Date Arthritis Avascular necrosis of bone of hip (HCC) Claudication (HCC) Herpes zoster Hyperlipidemia Hypertension PAD (peripheral artery disease) (HCC) 01/21/2022 Prostate cancer (HCC) Vascular disease Past Surgical History Past Surgical History: Procedure Laterality Date 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/08/2018 Procedure: LEFT MIDFOOT AMPUTATION; Surgeon: Flynn Mann DPM; Location: [facility]; Service: Podiatry ANKLE SURGERY Left BYPASS PERONEAL FEMORAL Right 09/07/2018 Procedure: BYPASS PERONEAL FEMORAL, RIGHT SAPHENOUS VEIN HARVEST, COMPLETION ANGIOGRAM; Surgeon: Mohsen Sarabia MD; Location: [facility]; Service: Cardiovascular CARDIAC CATHETERIZATION Left 09/05/2018 Procedure: Angio Lower Extremity; Surgeon: Ben Hahn MD; 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; Service: Cardiovascular CARDIAC SURGERY 2017 triple bypass EGD N/A 10/10/2018 Procedure: ESOPHAGOGASTRODUODENOSCOPY; Surgeon: Ben Jensen MD; Location: [facility]; Service: Gastroenterology EYE SURGERY Right 2015 FOOT SURGERY ORTHOPEDIC SURGERY STENT PLACEMENT Family History Family History Problem Relation Age of Onset Prostate cancer Brother No Known Problems Mother No Known Problems Father Social History Social History Socioeconomic History Marital status: Tobacco Use Smoking status: Never Smokeless tobacco: Never Vaping Use Vaping Use: Never used Substance and Sexual Activity Alcohol use: Not Currently Drug use: Never Sexual activity: Not Currently Allergies Allergies Allergen Reactions Doxycycline Elevated blood pressure, GI intolerance/ nausea/vomiting Medications Previous Medications Medication Sig albuterol (PROVENTIL) 2.5 mg /3 mL (0.083 %) nebulizer solution Take 3 mL (2.5 mg total) by nebulization every 6 (six) hours as needed for wheezing . albuterol 90 mcg/actuation inhaler Inhale 2 (two) puffs every 4 (four) hours as needed for wheezing, shortness of breath or cough . ammonium lactate (LAC-HYDRIN) 12 % lotion Apply topically 2 (two) times a day . aspirin 81 mg cap Take 81 mg by mouth daily . atorvastatin (LIPITOR) 40 MG tablet Take 40 mg by mouth daily . cephALEXin (KEFLEX) 500 MG capsule Take 500 mg by mouth 3 (three) times a day . fluticasone (FLONASE) 50 mcg/actuation nasal spray 2 (two) sprays by Each Nare route daily . gabapentin (NEURONTIN) 100 MG capsule Take 100 mg by mouth every 8 (eight) hours . losartan (COZAAR) 50 MG tablet Take 1 tablet by mouth daily . metoprolol tartrate (LOPRESSOR) 50 MG tablet Take 50 mg by mouth 2 (two) times a day . omeprazole (PRILOSEC) 20 MG capsule Take 20 mg by mouth daily . oxyCODONE-acetaminophen (PERCOCET) 5-325 mg per tablet Take 1 tablet by mouth every 6 (six) hours as needed for pain . polyethylene glycol (MIRALAX) 17 gram powder Take 17 g by mouth . rivaroxaban (XARELTO) 2.5 mg tablet Take 1 tablet by mouth 2 (two) times a day . sulfamethoxazole-trimethoprim (BACTRIM DS,SEPTRA DS) 800-160 mg per tablet Take 1 tablet by mouth 2(two) times a day . tiotropium bromide (SPIRIVA RESPIMAT) 2.5 mcg/actuation Mist Inhale 2 (two) puffs daily Start: 01/22/22. (Patient not taking: Reported on 02/25/2022 .) zolpidem (AMBIEN) 10 mg tablet Take 10 mg by mouth nightly . IMPRESSION: 1. PAD (peripheral artery disease) (HCC) 2. Pain of right lower extremity 3. Hypertension, unspecified type *Management decisions made amidst COVID-19 public health emergency* *Please note that portions of this note were created using [employer] voice recognition software.* Carson Brock MD 04/14/22 232 * Amairani Bucio RN - 04/14/2022 7:29 PM EDT Patient arrives in a wheelchair with a cc of right leg swelling. The patient was at [facility] and they told him he has a blood clot in the right leg and he needs to come down to [facility] to see hisvascular surgeon that he sees here. documented in this [id number] History and physical note* Jagruti Moore Jr., MD - 04/14/2022 11:51 PM EDT Images from the original note were not included. [facility] History and Physical Note 04/15/22 Tristin Powell 1940 [id number] Assessment/Plan: Tristin Powell is a 82 y.o. male with a history of HTN, HFpEF, PAD with bypass/stenting/amputation, CAD who recently discharged 01/21/22 after cellulitis L ankle who presented to [facility] Observation 04/14/2022 with worsening R leg pain and outpatient u/s showing stenois of superficial femoral artery and occlusion of popliteal artery. Vascular surgery consulted and requested [facility] obs admission. Ct angiowith lower extrem with no change since 12/2021. PAD: R leg pain, known PAD. YAMILE 04/14/22 with 0.59 showing mild small vessel disease transmetarsal Rfoot. CT angio aorta with runoff 04/14/22 with no change since 12/2021, L common femoral to tibioperoneal trunk bypass graft patent with single vessel runoff to L lower extremity below level of anastomosis. Focal stenosis distal 3rd of R SFA with occlusion of R popliteal and single vessel reconstitution of small peroneal artery at level of R ankle. Follows with Dr Sarabia (vasc surg) who is consulted. Aspirin xarelto statin continued. Defer pletal to vascular. Could consider increase in gabapentin. HTN: Home meds HFpEF: Hx Echo 09/2018 ef 55-60%. Not on diuretics. CAD: CABG 2017. TTE 09/2018 EF 55-60% reduced RV function LV hypertrophy and diastolic dysfunction. BB aspirin statin xarelto. Carotid stenosis: Hx 50-69% bilateral in 03/2021. As above. Code Status: Full unv Current Living Situation: Home Estimated discharge date: TBD Chief Complaint: R leg pain and abnormal ultrasound. History of Present Illness: Here with R lower extremity pain from half way down villeda down to foot. Worsening pain and numbness.Been there about 5 weeks. Slowly progressing/worsening. Present all the time but worse with activity. No fevers chills shortness of breath out of ordinary. Some nausea today no emesis. He came in today as he had a pcp appt and mentioned th pain and swelling to R leg and had arterial doppler than had abnormalities that caused him to come in. No recent falls or injuries. ROS: 10 systems were reviewed and negative, except as noted above. Past Medical, Surgical, Social, Family History: Past Medical History: Diagnosis Date Arthritis Avascular necrosis of bone of hip ([facility]) Claudication ([facility]) Coronary artery disease Herpes zoster Hyperlipidemia Hypertension PAD (peripheral artery disease) ([facility]) 01/21/2022 Prostate cancer ([facility]) Vascular disease Past Surgical History: Procedure Laterality Date 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/08/2018 Procedure: LEFT MIDFOOT AMPUTATION; Surgeon: Flynn Mann DPM; Location: [facility]; Service: Podiatry ANKLE SURGERY Left BYPASS PERONEAL FEMORAL Right 09/07/2018 Procedure: BYPASS PERONEAL FEMORAL, RIGHT SAPHENOUS VEIN HARVEST, COMPLETION ANGIOGRAM; Surgeon: Mohsen Sarabia MD; Location: [facility] NEUR[facility] OR; Service: Cardiovascular CARDIAC CATHETERIZATION Left 09/05/2018 Procedure: Angio Lower Extremity; Surgeon: Ben Hahn MD; 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; Service: Cardiovascular CARDIAC SURGERY 2017 triple bypass EGD N/A 10/10/2018 Procedure: ESOPHAGOGASTRODUODENOSCOPY; Surgeon: Ben Jensen MD; Location: [facility]; Service: Gastroenterology EYE SURGERY Right 2015 FOOT SURGERY ORTHOPEDIC SURGERY STENT PLACEMENT Social History Socioeconomic History Marital status: Tobacco Use Smoking status: Never Smokeless tobacco: Never Vaping Use Vaping Use: Never used Substance and Sexual Activity Alcohol use: Not Currently Drug use: Never Sexual activity: Not Currently Family History Problem Relation Age of Onset No Known Problems Mother Heart disease Father Prostate cancer Brother Cancer Paternal Aunt Home Medications: Home Medication Instructions Prior to Surgery TAKE these medications Take last dose on Take the morning of surgery Comment(s) * albuterol 2.5 mg /3 mL (0.083 %) nebulizer solution Take 3 mL (2.5 mg total) by nebulization every 6 (six) hours as needed for wheezing . Commonly known as: PROVENTIL * albuterol 90 mcg/actuation inhaler Inhale 2 (two) puffs every 4 (four) hours as needed for wheezing, shortness of breath or cough . ammonium lactate 12 % lotion Apply topically 2 (two) times a day . Commonly known as: LAC-HYDRIN aspirin 81 mg Cap Take 81 mg by mouth daily . atorvastatin 40 MG tablet Take 20 mg by mouth 2 (two) times a day 1/2 tab . Commonly known as: LIPITOR fluticasone propionate 50 mcg/actuation nasal spray 2 (two) sprays by Each Nare route daily . Commonly known as: FLONASE gabapentin 100 MG capsule Take 100 mg by mouth every 8 (eight) hours . Commonly known as: NEURONTIN losartan 50 MG tablet Take 1 (one) tablet (50 mg total) by mouth daily . Commonly known as: COZAAR metoprolol tartrate 50 MG tablet Take 50 mg by mouth 2 (two) times a day . Commonly known as: LOPRESSOR omeprazole 20 MG capsule Take 20 mg by mouth daily . Commonly known as: PRILOSEC oxyCODONE-acetaminophen 5-325 mg per tablet Take 1 tablet by mouth every 6 (six) hours as needed for pain . Commonly known as: PERCOCET polyethylene glycol 17 gram powder Take 17 (seventeen) g by mouth daily . Commonly known as: MIRALAX rivaroxaban 2.5 mg tablet Take 1 tablet by mouth 2 (two) times a day . Commonly known as: XARELTO tiotropium bromide 2.5 mcg/actuation Mist Inhale 2 (two) puffs daily Start: 01/22/22. Commonly known as: SPIRIVA RESPIMAT zolpidem 10 mg tablet Take 1 (one) tablet (10 mg total) by mouth nightly as needed . Commonly known as: AMBIEN * This list has 2 medication(s) that are the same as other medications prescribed for you. Read thedirections carefully, and ask your doctor or other care provider to review them with you. Physical Exam: BP (!) 165/78 Pulse 75 Temp 98.4 F (36.9 C) (Oral) Resp 18 Ht 6' 2 Wt 112 kg (247 lb) SpO2 96% BMI 31.71 kg/m General: NAD Eyes: EOMI ENT: neck supple Cardiovascular: Regular rate. Respiratory: Clear to auscultation Gastrointestinal: Soft, non tender Genitourinary: no suprapubic tenderness Musculoskeletal: No edema, L forefot amputation, R foot with decreased hair, cool but perfused, +movement. Skin: warm, dry Neuro: Alert. Psych: Mood appropriate. Labs, Imaging, and Studies reviewed: Lab Results Component Value Date GLUCOSE 93 04/14/2022 CALCIUM 9.5 04/14/2022 NA 141 04/14/2022 K 4.2 04/14/2022 CL 105 04/14/2022 BUN 13 04/14/2022 CREATININE 0.96 04/14/2022 Lab Results Component Value Date WBC 5.69 04/14/2022 HGB 14.0 04/14/2022 HCT 41.7 04/14/2022 MCV 93.3 04/14/2022 PLT 179 04/14/2022 Lab Results Component Value Date ALT 25 10/04/2018 AST 25 10/04/2018 ALKPHOS 109 10/04/2018 BILITOT 0.5 10/04/2018 Lab Results Component Value Date INR 1.1 04/14/2022 [id number] History and physical note* Jagruti Moore Jr., MD - 04/14/2022 11:51 PM EDT Images from the original note were not included. [facility] History and Physical Note 04/15/22 Tristin Powell 1940 [id number] Assessment/Plan: Tristin Powell is a 82 y.o. male with a history of HTN, HFpEF, PAD with bypass/stenting/amputation, CAD who recently discharged 01/21/22 after cellulitis L ankle who presented to [facility] Observation 04/14/2022 with worsening R leg pain and outpatient u/s showing stenois of superficial femoral artery and occlusion of popliteal artery. Vascular surgery consulted and requested [facility] obs admission. Ct angiowith lower extrem with no change since 12/2021. PAD: R leg pain, known PAD. YAMILE 04/14/22 with 0.59 showing mild small vessel disease transmetarsal Rfoot. CT angio aorta with runoff 04/14/22 with no change since 12/2021, L common femoral to tibioperoneal trunk bypass graft patent with single vessel runoff to L lower extremity below level of anastomosis. Focal stenosis distal 3rd of R SFA with occlusion of R popliteal and single vessel reconstitution of small peroneal artery at level of R ankle. Follows with Dr Sarabia (vasc surg) who is consulted. Aspirin xarelto statin continued. Defer pletal to vascular. Could consider increase in gabapentin. HTN: Home meds HFpEF: Hx Echo 09/2018 ef 55-60%. Not on diuretics. CAD: CABG 2016. TTE 09/2018 EF 55-60% reduced RV function LV hypertrophy and diastolic dysfunction. BB aspirin statin xarelto. Carotid stenosis: Hx 50-69% bilateral in 03/2021. As above. Code Status: Full unv Current Living Situation: Home Estimated discharge date: TBD Chief Complaint: R leg pain and abnormal ultrasound. History of Present Illness: Here with R lower extremity pain from half way down villeda down to foot. Worsening pain and numbness.Been there about 5 weeks. Slowly progressing/worsening. Present all the time but worse with activity. No fevers chills shortness of breath out of ordinary. Some nausea today no emesis. He came in today as he had a pcp appt and mentioned th pain and swelling to R leg and had arterial doppler than had abnormalities that caused him to come in. No recent falls or injuries. ROS: 10 systems were reviewed and negative, except as noted above. Past Medical, Surgical, Social, Family History: Past Medical History: Diagnosis Date Arthritis Avascular necrosis of bone of hip (HCC) Claudication (HCC) Coronary artery disease Herpes zoster Hyperlipidemia Hypertension PAD (peripheral artery disease) (HCC) 01/21/2022 Prostate cancer (HCC) Vascular disease Past Surgical History: Procedure Laterality Date 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/08/2018 Procedure: LEFT MIDFOOT AMPUTATION; Surgeon: Flynn Mann DPM; Location: [facility]; Service: Podiatry ANKLE SURGERY Left BYPASS PERONEAL FEMORAL Right 09/07/2018 Procedure: BYPASS PERONEAL FEMORAL, RIGHT SAPHENOUS VEIN HARVEST, COMPLETION ANGIOGRAM; Surgeon: Mohsen Sarabia MD; Location: [facility] OR; Service: Cardiovascular CARDIAC CATHETERIZATION Left 09/05/2018 Procedure: Angio Lower Extremity; Surgeon: Ben Hhan MD; 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; Service: Cardiovascular CARDIAC SURGERY 2017 triple bypass EGD N/A 10/10/2018 Procedure: ESOPHAGOGASTRODUODENOSCOPY; Surgeon: Ben Jensen MD; Location: [facility]; Service: Gastroenterology EYE SURGERY Right 2015 FOOT SURGERY ORTHOPEDIC SURGERY STENT PLACEMENT Social History Socioeconomic History Marital status: Tobacco Use Smoking status: Never Smokeless tobacco: Never Vaping Use Vaping Use: Never used Substance and Sexual Activity Alcohol use: Not Currently Drug use: Never Sexual activity: Not Currently Family History Problem Relation Age of Onset No Known Problems Mother Heart disease Father Prostate cancer Brother Cancer Paternal Aunt Home Medications: Home Medication Instructions Prior to Surgery TAKE these medications Take last dose on Take the morning of surgery Comment(s) * albuterol 2.5 mg /3 mL (0.083 %) nebulizer solution Take 3 mL (2.5 mg total) by nebulization every 6 (six) hours as needed for wheezing . Commonly known as: PROVENTIL * albuterol 90 mcg/actuation inhaler Inhale 2 (two) puffs every 4 (four) hours as needed for wheezing, shortness of breath or cough . ammonium lactate 12 % lotion Apply topically 2 (two) times a day . Commonly known as: LAC-HYDRIN aspirin 81 mg Cap Take 81 mg by mouth daily . atorvastatin 40 MG tablet Take 20 mg by mouth 2 (two) times a day / tab . Commonly known as: LIPITOR fluticasone propionate 50 mcg/actuation nasal spray 2 (two) sprays by Each Nare route daily . Commonly known as: FLONASE gabapentin 100 MG capsule Take 100 mg by mouth every 8 (eight) hours . Commonly known as: NEURONTIN losartan 50 MG tablet Take 1 (one) tablet (50 mg total) by mouth daily . Commonly known as: COZAAR metoprolol tartrate 50 MG tablet Take 50 mg by mouth 2 (two) times a day . Commonly known as: LOPRESSOR omeprazole 20 MG capsule Take 20 mg by mouth daily . Commonly known as: PRILOSEC oxyCODONE-acetaminophen 5-325 mg per tablet Take 1 tablet by mouth every 6 (six) hours as needed for pain . Commonly known as: PERCOCET polyethylene glycol 17 gram powder Take 17 (seventeen) g by mouth daily . Commonly known as: MIRALAX rivaroxaban 2.5 mg tablet Take 1 tablet by mouth 2 (two) times a day . Commonly known as: XARELTO tiotropium bromide 2.5 mcg/actuation Mist Inhale 2 (two) puffs daily Start: 01/22/22. Commonly known as: SPIRIVA RESPIMAT zolpidem 10 mg tablet Take 1 (one) tablet (10 mg total) by mouth nightly as needed . Commonly known as: AMBIEN * This list has 2 medication(s) that are the same as other medications prescribed for you. Read thedirections carefully, and ask your doctor or other care provider to review them with you. Physical Exam: BP (!) 165/78 Pulse 75 Temp 98.4 F (36.9 C) (Oral) Resp 18 Ht 6' 2 Wt 112 kg (247 lb) SpO2 96% BMI 31.71 kg/m General: NAD Eyes: EOMI ENT: neck supple Cardiovascular: Regular rate. Respiratory: Clear to auscultation Gastrointestinal: Soft, non tender Genitourinary: no suprapubic tenderness Musculoskeletal: No edema, L forefot amputation, R foot with decreased hair, cool but perfused, +movement. Skin: warm, dry Neuro: Alert. Psych: Mood appropriate. Labs, Imaging, and Studies reviewed: Lab Results Component Value Date GLUCOSE 93 04/14/2022 CALCIUM 9.5 04/14/2022 NA 141 04/14/2022 K 4.2 04/14/2022 CL 105 04/14/2022 BUN 13 04/14/2022 CREATININE 0.96 04/14/2022 Lab Results Component Value Date WBC 5.69 04/14/2022 HGB 14.0 04/14/2022 HCT 41.7 04/14/2022 MCV 93.3 04/14/2022 PLT 179 04/14/2022 Lab Results Component Value Date ALT 25 10/04/2018 AST 25 10/04/2018 ALKPHOS 109 10/04/2018 BILITOT 0.5 10/04/2018 Lab Results Component Value Date INR 1.1 04/14/2022 documented in this [id number] Emergency department Note* MIGUE Berumen - 04/14/2022 11:24 PM EDT [facility] to write admission orders [id number]. [id number] Physician Emergency department Note* Carson Brock MD - 04/14/2022 8:24 PM EDT [facility] EMERGENCY DEPARTMENT PCP - Flash Lovelace MD Chief Complaint Patient presents with Leg Swelling HPI MEDICAL DECISION MAKING 82-year-old male presents to [facility] emergency department chief complaint of right leg pain. Patient has a history of underlying arterial disease to his lower extremities. He is actually required amputation to his left foot before. Patient reports over the past 5 to6 weeks he has developed some increasing pain to his right leg noting primarily from the villeda downwards. Patient reports that it seems to have worsened over the past 1 week and he brought it up to family member. He had an ultrasound ordered by his doctor at [facility] with findings concerningfor stenosis to the superficial femoral artery as well as an occlusion of his popliteal artery. His primary doctor recommended he present here for evaluation from his vascular surgeon Dr. Sarabia and patient presents here via triage. Patient reports compliance with home medications including anticoagulation with Xarelto and aspirin. 82-year-old male presents to [facility] emergency department chief plaint of right foot pain. On examination patient is resting comfortably. He is noted to be hypertensive. His heart is regularrate and rhythm his lungs appear clear. His abdomen is soft and nontender. Extremities demonstrate partial amputation of his left foot. He demonstrates some tenderness at his right lower leg from themid lower leg downwards. He has no palpable posterior tibial pulses however he has dopplerable dorsalis pedis pulse to his right leg as well as dopplerable posterior tibial pulse. He has a dopplerable posterior tibial pulse as well to his left foot however it appears more prominent to his right side. He does have a cap refill less than 3 seconds throughout. At this time patient is had laboratory studies performed base metabolic with a creatinine 0.96. His I paged out spoke with the vascular surgery service. At this time given his established history with Dr. Sarabia with vascular surgery will defer additional imaging to their service patient with most recent CT angio of the abdominal aorta with right lower extremity runoff from December reviewed demonstrating right peroneal artery occluded proximally but reconstituted flow and provides down of blood supply to the right foot. Vascular surgery has been consulted at this time. At this time they are requesting patient be hospitalized to medical observation bed. Patient is otherwise resting comfortably at this time. He will be admitted to the [facility] observation unit. CLINICAL IMPRESSION 1. PAD (peripheral artery disease) (HCC) 2. Pain of right lower extremity 3. Hypertension, unspecified type Follow-up Information Follow-up information has not been specified. Contact information for after-discharge care Follow-up information has not been specified. . Labs Reviewed CBC WITH AUTO DIFFERENTIAL - Abnormal; Notable for the following components: Result Value RBC 4.47 (*) Lymphocytes Abs 0.85 (*) All other components within normal limits BASIC METABOLIC PANEL - Normal Narrative: [facility] has implemented the eGFR calculation approach that does not have a coefficient for race that conforms to the NKF-ASN Task Force Recommendations. PT/INR - Normal Narrative: During the induction phase of oral anticoagulation, the INR may not reflect the anticoagulation status of the patient. Therapeutic ranges for INR's are: Most clinical situations: INR 2.0-3.0 Mechanical Prosthetic Valve: INR 2.5-3.5 Critical: INR >5.0 COVID-19, MOLECULAR CBC AND DIFFERENTIAL Narrative: The following orders were created for panel order CBC w/ Diff. Procedure Abnormality Status --------- ------ CBC Auto Differential[[id number]] Abnormal Final result Please view results for these tests on the individual orders. Radiographic Imaging (if any) During ED Visit US Doppler ankle/brachial index Final Result CT Angiogram Abdominal Aorta With Lower Extremity Preliminary Result 1. Overall no significant change from prior imaging in December. 2. Left common femoral to tibioperoneal trunk bypass graft is patent. Single- vessel runoff in the left lower extremity below the level of the anastomosis. 3. Focal stenosis of the distal 3rd of the right SFA with occlusion of the right popliteal artery and single-vessel reconstitution of a small peroneal artery at the level of the right ankle. 4. Severe aortic atherosclerosis without aneurysm or dissection. 5. Chronic findings including severe pancolonic diverticulosis. [employer] Workstation ID: [id number] Medications Ordered/Given During ED Visit Medications sodium chloride (PF) (NS) flush 5 mL (has no administration in time range) And sodium chloride 0.9% (NS) (has no administration in time range) iopamidoL (ISOVUE-370) 76 % injection 75 mL (has no administration in time range) sodium chloride (PF) (NS) 0.9 % contrast line flush 10 mL (10 mL Intravenous Given 04/14/222131) And sodium chloride (PF) (NS) 0.9 % contrast line flush 80 mL (80 mL Intravenous Given 04/14/222130) iopamidoL (ISOVUE-370) 76 % injection 125 mL (125 mL Intravenous Contrast Administered 04/14/222129) fentaNYL (SUBLIMAZE) injection 50 mcg (50 mcg Intravenous Given 04/14/222119) PROCEDURES (if any, during ED visit): Procedures Review of Systems Constitutional: No fevers, no unexpected weight change Skin: No color changes Eyes: No discharge ENMT: No drooling Respiratory: No stridor Genitourinary: No dysuria Endocrine: No polyphagia Neurologic: No new face asymmetry Psychiatric: No self injury Hematologic/Lymphatic: No new easy bruising Allergic/Immunologic: No urticaria All systems reviewed negative except as mentioned above. Review of Systems Constitutional: Negative for fatigue and fever. Respiratory: Negative for cough and wheezing. Cardiovascular: Negative for chest pain, palpitations and leg swelling. Gastrointestinal: Negative for abdominal pain, nausea and vomiting. Genitourinary: Negative for flank pain. Musculoskeletal: Positive for myalgias. Skin: Negative for color change, pallor, rash and wound. Neurological: Negative for weakness, numbness and headaches. Physical Exam Vital Signs During ED Visit (as charted by nursing) Patient Vitals for the past 24 hrs: BP Temp Temp src Pulse Resp SpO2 Height Weight 04/14/22 2215 (!) 179/75 -- -- 77 16 -- -- -- 04/14/220 -- -- -- -- 16 -- -- -- 04/14/22 2100 (!) 161/77 -- -- 77 12 96 % -- -- 04/14/222006 (!) 180/71 -- -- 81 18 97 % -- -- 04/14/22 1935 (!) 200/95 98.4 F (36.9 C) Oral 70 15 95 % 6' 2 112 kg (247 lb) Physical Exam Vitals and nursing note reviewed. Constitutional: General: He is not in acute distress. Appearance: Normal appearance. He is well-developed and normal weight. He is not ill-appearing, toxic-appearing or diaphoretic. HENT: Head: Normocephalic and atraumatic. Right Ear: External ear normal. Left Ear: External ear normal. Nose: Nose normal. Eyes: General: No scleral icterus. Right eye: No discharge. Left eye: No discharge. Conjunctiva/sclera: Conjunctivae normal. Neck: Vascular: No JVD. Trachea: No tracheal deviation. Cardiovascular: Rate and Rhythm: Normal rate and regular rhythm. Pulses: Normal pulses. Heart sounds: Normal heart sounds. Pulmonary: Effort: Pulmonary effort is normal. No respiratory distress. Breath sounds: Normal breath sounds. No stridor. No wheezing, rhonchi or rales. Chest: Chest wall: No tenderness. Abdominal: General: There is no distension. Palpations: Abdomen is soft. There is no mass. Tenderness: There is no abdominal tenderness. There is no guarding or rebound. Hernia: No hernia is present. Musculoskeletal: General: No swelling, tenderness, deformity or signs of injury. Normal range of motion. Cervical back: Normal range of motion. No rigidity or tenderness. Right lower leg: Edema (trace RLE) present. Left lower leg: No edema. Comments: Patient with dopplerable dorsalis pedis as well as posterior tibial pulses on the right lower extremity. Patient with less prominent dopplerable pulse to left lower extremity. 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 Trace edema to the right lower extremity slightly more prominent than that to the left on examination. Skin: General: Skin is warm. Capillary Refill: Capillary refill takes less than 2 seconds. Coloration: Skin is not jaundiced or pale. Findings: No bruising, erythema, lesion or rash. Neurological: General: No focal deficit present. Mental Status: He is alert and oriented to person, place, and time. Mental status is at baseline. Cranial Nerves: No cranial nerve deficit. Sensory: No sensory deficit. Motor: No weakness. Past Medical History Past Medical History: Diagnosis Date Arthritis Avascular necrosis of bone of hip (HCC) Claudication (HCC) Herpes zoster Hyperlipidemia Hypertension PAD (peripheral artery disease) (HCC) 01/21/2022 Prostate cancer (HCC) Vascular disease Past Surgical History Past Surgical History: Procedure Laterality Date 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/08/2018 Procedure: LEFT MIDFOOT AMPUTATION; Surgeon: Flynn Mann DPM; Location: [facility]; Service: Podiatry ANKLE SURGERY Left BYPASS PERONEAL FEMORAL Right 09/07/2018 Procedure: BYPASS PERONEAL FEMORAL, RIGHT SAPHENOUS VEIN HARVEST, COMPLETION ANGIOGRAM; Surgeon: Mohsen Sarabia MD; Location: [facility] OR; Service: Cardiovascular CARDIAC CATHETERIZATION Left 09/05/2018 Procedure: Angio Lower Extremity; Surgeon: Ben Hahn MD; 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; Service: Cardiovascular CARDIAC SURGERY 2017 triple bypass EGD N/A 10/10/2018 Procedure: ESOPHAGOGASTRODUODENOSCOPY; Surgeon: Ben Jensen MD; Location: [facility]; Service: Gastroenterology EYE SURGERY Right 2015 FOOT SURGERY ORTHOPEDIC SURGERY STENT PLACEMENT Family History Family History Problem Relation Age of Onset Prostate cancer Brother No Known Problems Mother No Known Problems Father Social History Social History Socioeconomic History Marital status: Tobacco Use Smoking status: Never Smokeless tobacco: Never Vaping Use Vaping Use: Never used Substance and Sexual Activity Alcohol use: Not Currently Drug use: Never Sexual activity: Not Currently Allergies Allergies Allergen Reactions Doxycycline Elevated blood pressure, GI intolerance/ nausea/vomiting Medications Previous Medications Medication Sig albuterol (PROVENTIL) 2.5 mg /3 mL (0.083 %) nebulizer solution Take 3 mL (2.5 mg total) by nebulization every 6 (six) hours as needed for wheezing . albuterol 90 mcg/actuation inhaler Inhale 2 (two) puffs every 4 (four) hours as needed for wheezing, shortness of breath or cough . ammonium lactate (LAC-HYDRIN) 12 % lotion Apply topically 2 (two) times a day . aspirin 81 mg cap Take 81 mg by mouth daily . atorvastatin (LIPITOR) 40 MG tablet Take 40 mg by mouth daily . cephALEXin (KEFLEX) 500 MG capsule Take 500 mg by mouth 3 (three) times a day . fluticasone (FLONASE) 50 mcg/actuation nasal spray 2 (two) sprays by Each Nare route daily . gabapentin (NEURONTIN) 100 MG capsule Take 100 mg by mouth every 8 (eight) hours . losartan (COZAAR) 50 MG tablet Take 1 tablet by mouth daily . metoprolol tartrate (LOPRESSOR) 50 MG tablet Take 50 mg by mouth 2 (two) times a day . omeprazole (PRILOSEC) 20 MG capsule Take 20 mg by mouth daily . oxyCODONE-acetaminophen (PERCOCET) 5-325 mg per tablet Take 1 tablet by mouth every 6 (six) hours as needed for pain . polyethylene glycol (MIRALAX) 17 gram powder Take 17 g by mouth . rivaroxaban (XARELTO) 2.5 mg tablet Take 1 tablet by mouth 2 (two) times a day . sulfamethoxazole-trimethoprim (BACTRIM DS,SEPTRA DS) 800-160 mg per tablet Take 1 tablet by mouth 2(two) times a day . tiotropium bromide (SPIRIVA RESPIMAT) 2.5 mcg/actuation Mist Inhale 2 (two) puffs daily Start: 01/22/22. (Patient not taking: Reported on 02/25/2022 .) zolpidem (AMBIEN) 10 mg tablet Take 10 mg by mouth nightly . IMPRESSION: 1. PAD (peripheral artery disease) (HCC) 2. Pain of right lower extremity 3. Hypertension, unspecified type *Management decisions made amidst COVID-19 public health emergency* *Please note that portions of this note were created using Bit[employer] voice recognition software.* Carson Brock MD 04/14/222320 [facility] Work Phone: [phone] Emergency department Triage note* Amairani Bucio RN - 04/14/2022 7:29 PM EDT Patient arrives in a wheelchair with a cc of right leg swelling. The patient was at [facility] and they told him he has a blood clot in the right leg and he needs to come down to [facility] to see hisvascular surgeon that he sees here. [id number] History of Present illness Narrative* Katie Anna RN - 04/14/2022 5:54 PM EDT Vascular Resident paged twice, awaiting response Dr. Sarabia notified that patient is coming to [facility] ED for further evaluation. documented in this [id number] NoteFINDINGS: ARTERIAL EVALUATION RIGHT LEFT VELOCITIES PHASICITY VELOCITIES PHASICITY 99 BiCommon femoral 93 BiProximal SFA 111 MonoMid SFA 119 MonoDistal SFA 37 MonoPopliteal 22 MonoATA 63 MonoPTA 14 MonoPeroneal artery RIGHT LOWER EXTREMITY: Severe stenosis distal to the superficial femoral artery extending through the infrapopliteal region. Common femoral waveform analysis suggests proximal stenosis above this level. IMPRESSION: 1.Severe distal SFA stenosis with infrapopliteal occlusion. 2. Probable significant inflow stenosis above the common femoral artery. Report reported and signed by Nabor Beard on 04/14/2022 1551[facility]n [facility]07-01-2022 History of Present illness Narrative* Wagner Moon MD - 02/25/2022 10:00 AM EDT PULMONOLOGY CONSULT 02/25/2022 Patient: Tristin Powell Date of : 1940 Site: [facility] Referring Provider: Refer to consult order in electronic medical record Provider: Wagner Moon MD ASSESSMENT/PLAN: Tristin Powell 82 y.o. male with history of CAD s/p CABG, PAD/PVD, COPD, GERD, chronic pain referred for abnormal chest CT. Abnormal Chest CT. I personally reviewed the CT chest images from 01/19/22. There is an irregular left lower lobe nodule which is >1.5cm. This nodule is concerning for primary lung malignancy. It'slocation will make IR biopsy difficult as it will be high risk for pneumothorax. Could consider short-term follow up CT imaging vs PET vs direct referral to IR. This was discussed with the patient and he elects to proceed with the conservative option - we will plan to repeat chest CT in mid April and see patient back in clinic following that scan. If the nodule is enlarging will plan for referral to OR for biopsy. Emphysema - noted on CT chest images. Consider OP PFTs. Ordered PRN albuterol inhaler. Patient is hesitant to start daily controller meds. CAD s/p CABG, PAD/PVD - management per primary care Assessment & plan notes cannot be loaded without a specified hospital service. SUBJECTIVE: Chief Complaint/Reason for Visit: Abnormal chest CT History of Present Illness: Tristin Powell is a 82 y.o. male presenting from home with complaint of abnormal chest CT. He reports he had severe pneumonia in the spring requiring multiple rounds ofantibiotics. 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 He reports no unintentional weight loss or night sweats. Intermittent dyspnea on exertion. Primary complaint is phantom left foot pain. We discussed the scan findings and the risk of waiting for biopsy (possible cancer progression) vs the risk of biopsy (pneumothorax) and he elects to proceed with the conservative option and pursue serial imaging. If the nodule grows he is then willing to be referred for biopsy. Interpretation of Testing: I personally reviewed the chest CT and agree with the interpretation(s) with the following comments. I personally reviewed the images as above Review of Systems: Constitutional:No fever, no weight loss Eyes:No diplopia ENT:No sinus drainage GI:No abdominal pain.No abdominal distention :No dysuria Neuro:No headache All other systems reviewed and negative other than HPI Past Medical History: Diagnosis Date Arthritis Avascular necrosis of bone of hip (HCC) Claudication (HCC) Herpes zoster Hyperlipidemia Hypertension PAD (peripheral artery disease) (HCC) 01/21/2022 Prostate cancer (HCC) Vascular disease Past Surgical History: Procedure Laterality Date 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/08/2018 Procedure: LEFT MIDFOOT AMPUTATION; Surgeon: Flynn Mann DPM; Location: [facility]; Service: Podiatry ANKLE SURGERY Left BYPASS PERONEAL FEMORAL Right 09/07/2018 Procedure: BYPASS PERONEAL FEMORAL, RIGHT SAPHENOUS VEIN HARVEST, COMPLETION ANGIOGRAM; Surgeon: Mohsen Sarabia MD; Location: [facility]; Service: Cardiovascular CARDIAC CATHETERIZATION Left 09/05/2018 Procedure: Angio Lower Extremity; Surgeon: Ben Hahn MD; 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; Service: Cardiovascular CARDIAC SURGERY 2017 triple bypass EGD N/A 10/10/2018 Procedure: ESOPHAGOGASTRODUODENOSCOPY; Surgeon: Ben Jensen MD; Location: [facility]; Service: Gastroenterology EYE SURGERY Right 2015 FOOT SURGERY ORTHOPEDIC SURGERY STENT PLACEMENT Family History Problem Relation Age of Onset Prostate cancer Brother No Known Problems Mother No Known Problems Father Social History Tobacco Use Smoking Status Never Smokeless Tobacco Never Allergies: Doxycycline Current Outpatient Medications Medication Sig Dispense Refill albuterol (PROVENTIL) 2.5 mg /3 mL (0.083 %) nebulizer solution Take 3 mL (2.5 mg total) by nebulization every 6 (six) hours as needed for wheezing . 12 mL 2 ammonium lactate (LAC-HYDRIN) 12 % lotion Apply topically 2 (two) times a day . 400 g 2 aspirin 81 mg cap Take 81 mg by mouth daily . atorvastatin (LIPITOR) 40 MG tablet Take 40 mg by mouth daily . cephALEXin (KEFLEX) 500 MG capsule Take 500 mg by mouth 3 (three) times a day . fluticasone (FLONASE) 50 mcg/actuation nasal spray 2 (two) sprays by Each Nare route daily . 16 g 12 gabapentin (NEURONTIN) 100 MG capsule Take 100 mg by mouth every 8 (eight) hours . losartan (COZAAR) 50 MG tablet Take 1 tablet by mouth daily . metoprolol tartrate (LOPRESSOR) 50 MG tablet Take 50 mg by mouth 2 (two) times a day . omeprazole (PRILOSEC) 20 MG capsule Take 20 mg by mouth daily . oxyCODONE-acetaminophen (PERCOCET) 5-325 mg per tablet Take 1 tablet by mouth every 6 (six) hours as needed for pain . polyethylene glycol (MIRALAX) 17 gram powder Take 17 g by mouth . rivaroxaban (XARELTO) 2.5 mg tablet Take 1 tablet by mouth 2 (two) times a day . sulfamethoxazole-trimethoprim (BACTRIM DS,SEPTRA DS) 800-160 mg per tablet Take 1 tablet by mouth 2(two) times a day . tiotropium bromide (SPIRIVA RESPIMAT) 2.5 mcg/actuation Mist Inhale 2 (two) puffs daily Start: 01/22/22. 4 g 2 zolpidem (AMBIEN) 10 mg tablet Take 10 mg by mouth nightly . No current facility-administered medications for this visit. OBJECTIVE: Physical Examination: Blood pressure (!) 181/84, pulse 66, temperature 99.1 F (37.3 C), temperature source Temporal, resp. rate 16, height 6' 2 , weight 113.8 kg (250 lb 14.4 oz), SpO2 95 %. Vital Signs Reviewed. Gen: Alert and oriented x 3, In no apparent distress HEENT: Head: Normocephalic, no lesions, without obvious abnormality. Pharynx: Dental Hygiene adequate. Normal buccal mucosa. Normal pharynx. Neck: full range of motion Cardio: regular rate and rhythm Resp: distant breath sounds bilaterally, no wheezes or crackles, no tachypnea or accessory muscle use Abd: soft, nontender, nondistended, no hepatosplenomegaly, no mass, normal bowel sounds MSK: Moves all four extremities spontaneously. Neuro: Grossly normal without focal findings Skin: no rashes, no jaundice, left LL amputation Labs and Imaging: reviewed Laboratory and Additional Data Reviewed: Reviewed 02/25/22 7:41 AM: Laboratory, Microbiology, Radiology, Cardiology, and Medications documented in this [id number] History of Present illness Narrative* Alma Delia Page RN - 01/21/2022 2:58 PM EDT This RN went over discharge instructions and prescriptions with the patient. Pt verbalized understanding. All questions were answered. IV was removed. All personal belongings sent home with patient. PT was taken down by wheelchair to [facility] main entrance. * Gustavo Gonzalez, DO - 01/21/2022 7:01 AM EDT [facility] Tristin Powell 1940 [id number] Assessment/Plan: Tristin Powell is a 82 y.o. male with a history of HTN, CAD, PVD who presented to [facility] 01/18/2022 with progressive left ankle pain, redness, swelling not improved with oral antibiotics. Admit XR non-acute, temp 100.7, CRP 63.5, WBC 6.76, ESR 18. Cultures with no growth to date. LLE Cellulitis: Per chart, hx MRSA in 2019. Presented progressive severe left ankle pain, edema, warmth, tenderness x 3 days CMO & PRESIDENT not improved with keflex/bactrim. Admit temp 100.7, has remained afebrile ever since. No leukocytosis. Admit blood cultures NGTD. Admit CTA/runoff with no evidence of deeper infection, LLE graft patent. Continue vancomycin, will plan to transition to PO Bactrim on 01/21.Continue pain control. Recommend outpatient follow-up with [facility] in [place]. Bilateral PAD: Per history. LLE angio w/ balloon/stent 08/09/18. 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 Left femoral to peroneal bypass 09/07/18 (Dr. Sarabia, vascular surgery). 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 Mann, podiatry). Right YAMILE 0.March. Continued aspirin and Xarelto 2.5mg BID. Dr. Sarabia ordered outpatient YAMILE and bypass graft duplex prior to admit. CTA/lower extremity runoff results with patent left bypass graft and new occlusion in right peroneal artery however distal blood flow still present. No role for vascular consult at this time, will continue to monitor closely. Acute Hypoxemic Respiratory Failure: No home O2. Placed on O2 in the ER. SpO2 99% on 2L NC. Weaned to room air in the ER, no additional oxygen needed since. Abnormal CT, Left Lower Lobe nodule: CT Chest 01/19 with incidental finding of new 1.6 cm irregular and solid left lower lobe nodule, severe emphysema. Pulm followed, plan for outpatient follow-up PETCT, initiation of Spiriva with PRN Albuterol on discharge. HTN: Per history. Continued home losartan, BB. Adjust PRN. CAD: Per history, remote heart stents and CABG x 3 in 2016. TTE Sep 2018: LV EF 55-60%, reduced right ventricular function, LV hypertrophy, diastolic LV dysfunction. No clear history of acute CHF. Continued aspirin, statin, BB, xarelto. Carotid Stenosis: Duplex March 2021 shoed 50-69% stenosis in bilateral carotid arteries, unchangedsince prior. Continued aspirin, xarelto, statin on admit. Code status: Full, discussed with patient on admit DVT Prophylaxis: Lovenox (home xarelto is at PVD/CAD dose) Current living situation: Home Expected Disposition: Home Estimated discharge date: 01/21/22 Gustavo Gonzalez , See attending attestation for corrections to above note Please call Resident assigned in treatment team for first contact, then second year on service. After hours please call Over night resident signed into treatment team. Subjective: No acute events overnight. Resting comfortably on room air. Pain continues to be well controlled, remains much improved since being admitted. No acute complaints. Denies any fevers, chills, night sweats, shortness of breath. Last BM yesterday morning. Plan for discharge hopefully today, will transition to PO Bactrim to complete total course of 14 days of Antibiotics (vancomycin started on 01/18) Physical Exam: BP (!) 145/66 Pulse 69 Temp 98.8 F (37.1 C) (Oral) Resp 15 Ht 6' 2 Wt 113.4 kg (250 lb) SpO2 94% BMI 32.10 kg/m General: NAD Eyes: EOMI ENT: neck supple Cardiovascular: Regular rate, rhythm Respiratory: Clear to auscultation, no increased respiratory effort. Gastrointestinal: Soft, non tender, non-distended. Genitourinary: no suprapubic tenderness Musculoskeletal: No edema. Skin: warm, dry, left lower extremity with improved edema, erythema, tenderness, mid-foot amputation present Neuro: Alert, oriented, no focal neurologic deficits. Psych: Mood appropriate. Current Medications: aspirin 81 mg Oral Daily atorvastatin 40 mg Oral Daily docusate sodium 100 mg Oral BID enoxaparin (LOVENOX) injection 40 mg Subcutaneous Daily gabapentin 100 mg Oral Q8H SADIA losartan 50 mg Oral Daily with lunch metoprolol tartrate 50 mg Oral BID pantoprazole 40 mg Oral Daily sodium chloride (PF) 5 mL Intravenous Q8H SADIA tiotropium bromide 2 puff Inhalation Daily vancomycin 1,750 mg Intravenous Q18H Labs, Imaging and Studies reviewed: Results from last 7 days Lab Units 01/21/22 0604 01/20/22 0823 01/19/22 0336 WBC K/mcL 4.08* 4.76 5.34 HGB g/dL 12.1* 13.7 12.4* HCT % 35.0* 41.6 36.8* PLT K/mcL 119* 132* 115* Results from last 7 days Lab Units 01/20/22 0823 01/19/22 0336 01/18/227 01/18/22 2105 SODIUM mmol/L 141 141 -- 138 POTASSIUM mmol/L 4.3 4.1 -- 4.2 CHLORIDE mmol/L 107 108 -- 103 BICARB mmol/L 25 22 -- 26 BUN mg/dL 12 13 -- 14 POC BUN mg/dL -- -- 14 -- CREATININE mg/dL 0.93 1.08 -- 1.10 POC CREATININE (EPOC) mg/dL -- -- 1.35* -- EGFR mL/min/1.73 m2 76 63 -- 62 GLUCOSE mg/dL 89 90 -- 107* CALCIUM mg/dL 9.2 8.4 -- 9.2 Associated attestation - Fam, Muna Bhatti MD - 01/21/2022 11:27 AM EDT Plan for discharge today. He will complete the antibiotics he already has at home (8 days keflex/bactrim). We gave him 3 days of additional bactrim to complete 14d course. He will follow up with Pulmonary for PFTs and PET scan. He will follow up with PCP for further monitoring of pancreatic lesion.He will follow up with his php developer and [facility] in [place] to determine if his prothesis could be causing some skin breakdown that lead to infection. He will also follow up his vascular surgeon (Dr. Sarabia) as planned. I offered him home health care but he reported doing well at home and declined further assistance. He will get ride home with daughter. * Carson Banks MD - 01/20/2022 1:01 PM EDT Resident Progress Note Patient Name: Tristin Powell : 1940 Admit Date: [id number] Assessment and Plan 82 y.o. male presenting with a past medical history that includes HTN, CAD, PVD. He presented on 01/18/2022 with progressive left ankle pain, redness, swelling not improved with oral antibiotics. Pulmonology consulted to evaluated lung nodule found on chest CT. Lung nodule -Overall relatively low concern for malignancy given imaging findings and lack of significant risk factors -No smoking history. 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 Background emphysema, focal bronchiectasis. Several calcified granulomas. -Solitary lung nodule malignancy risk ([place]) score: 17.6% -Recommend PET as an outpatient and follow up with Refining Engineer closer to home. Possible biopsy iffindings persist. COPD -Patient notes prior diagnosis of COPD -No history of formal PFT's -CT chest 01/19/22: Background emphysema, focal bronchiectasis. Several calcified granulomas. -Recommend PFT's as an outpatient. Spiriva, Afrin x 2-3 days. Acute hypoxemic respiratory failure, resolved -Likely component of emphysema contributing to respiratory status -No history of home oxygen -Initially requiring 2L nasal cannula in the ED, but successfully weaned to room air All care and management plans will be discussed with the attending on service. Carson Banks MD 1:01 PM 01/20/22 Pager: [phone] Chief Complaint Chief Complaint Patient presents with Leg Swelling Leg Pain Nausea Subjective Patient seen and examined this morning. Resting comfortably in bed. Pleasant. No acute events overnight. Denies chest pain or shortness of breath. Patient Review of Systems Review of Systems Constitutional: Negative for chills and fever. Respiratory: Negative for cough and shortness of breath. Cardiovascular: Negative for chest pain and leg swelling. Gastrointestinal: Negative for abdominal pain, nausea and vomiting. Genitourinary: Negative for decreased urine volume, difficulty urinating and dysuria. Skin: Negative for color change and rash. Neurological: Negative for dizziness and headaches. Physical Exam Vital Signs: BP (!) 158/68 Pulse 69 Temp 98 F (36.7 C) (Oral) Resp 16 Ht 6' 2 Wt 113.4 kg (250 lb) SpO2 94% BMI 32.10 kg/m Physical Exam Vitals reviewed. Constitutional: General: He is not in acute distress. Appearance: He is normal weight. HENT: Head: Normocephalic. Mouth/Throat: Mouth: Mucous membranes are moist. Eyes: Conjunctiva/sclera: Conjunctivae normal. Cardiovascular: Rate and Rhythm: Normal rate and regular rhythm. Pulses: Normal pulses. Heart sounds: Normal heart sounds. Pulmonary: Effort: Pulmonary effort is normal. Breath sounds: Normal breath sounds. Abdominal: General: Abdomen is flat. Bowel sounds are normal. Musculoskeletal: General: Normal range of motion. Cervical back: Normal range of motion. Skin: General: Skin is warm. Neurological: Mental Status: He is alert and oriented to person, place, and time. Psychiatric: Mood and Affect: Mood normal. Behavior: Behavior normal. Additional Data I have independently reviewed the following: Active Medications, Radiology, Cardiology, Labs, and Notes Associated attestation - Ananda Mirza DO - 01/20/2022 2:56 PM EDT The patient was seen and examined with the house staff. I personally reviewed the radiographic images and laboratory data. I agree with the history, physical exam, and assessment and plan with the following comments. Reason for visit/chief complaint: Pulmonary nodule, COPD Review of Systems: [] All other systems were reviewed and negative except for those as specified in History of Presentillness. [] Unable to obtain history or ROS secondary to clinical circumstances Assessment/Plan: Pulmonary nodule: Incidentally found 1.2 cm pulmonary nodule noted in the medial aspect of the leftlower lobe as well as several calcified micronodular changes consistent with old granulomatous disease, lower lobe predominant emphysematous changes, and scattered scarlike opacities. Nodule appears to be low to intermittent risk for underlying lung malignancy. -Recommended outpatient follow-up in the pulmonary medicine clinic close to home with PET CT scan as an outpatient. -Patient is okay to follow-up close to home and recommend this to be done at [facility] with either Drs. Carson Gallagher or Wagner Moon. Please place referral to either their clinics at discharge. COPD: Suspected diagnosis with significant emphysematous changes noted on CT likely due to occupational exposures. -Start Spiriva and as needed albuterol moving forward as well as follow-up in the pulmonary medicine clinic close to home for formal PFTs. DVT Prophylaxis: Xarelto Please call with any further questions or concerns. Dr. Ananda Mirza DO Pulmonary and Critical Care Medicine 2:56 PM 01/20/22 * Rossana Fernandez RPh,PharmD - 01/20/2022 11:23 AM EDT PHARMACOTHERAPY KINETICS QUICK NOTE Due to decrease in serum creatinine, vancomycin will be changed to 1750mg Q18H. Will plan for next vancomycin level 01/23 at 1200. Pharmacist: Rossana Fernandez RPh,PharmD Contact Number: [phone] ([employer]) or secure chat * Gustavo Gonzalez DO - 01/20/2022 7:01 AM EDT [facility] [place] [facility]22 Tristin Powell 1940 [id number] Assessment/Plan: Tristin Powell is a 82 y.o. male with a history of HTN, CAD, PVD who [facility] [facility] 01/[facility]/2022 with progressive left ankle pain, redness, swelling not improved with oral antibiotics. Admit XR non-acute, temp 100.7, CRP 63.5, WBC 6.76, ESR 18. LLE Cellulitis: Per chart, hx MRSA in 2018. Presented progressive severe left ankle pain, edema, warmth, tenderness x 3 days CMO & PRESIDENT not improved with keflex/bactrim. Admit temp 100.7, has remained afebrile ever since. No leukocytosis. Admit blood cultures NGTD. Admit CTA/runoff with no evidence of deeper infection, LLE graft patent. Continue vancomycin, will plan to transition to PO Bactrim on 01/21.Continue pain control. Recommend outpatient follow-up with [facility] in [place]. Bilateral PAD: Per history. LLE angio w/ balloon/stent 08/09/18. 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 Left femoral to peroneal bypass 09/07/18 (Dr. Sarabia, vascular surgery). 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 Mann, podiatry). Right YAMILE 0.March. Continued aspirin and Xarelto 2.5mg BID. Dr. Sarabia ordered outpatient YAMILE and bypass graft duplex prior to admit. CTA/lower extremity runoff results with patent left bypass graft and new occlusion in right peroneal artery however distal blood flow still present. No role for vascular consult at this time, will continue to monitor closely. Acute Hypoxemic Respiratory Failure: No home O2. Placed on O2 in the ER. SpO2 99% on 2L NC. Weaned to room air in the ER, no additional oxygen needed since. Abnormal CT, Left Lower Lobe nodule: CT Chest 01/19 with incidental finding of new 1.6 cm irregular and solid left lower lobe nodule, severe emphysema. Pulm followed, plan for outpatient follow-up PETCT, initiation of Spiriva with PRN Albuterol on discharge. HTN: Per history. Continued home losartan, BB. Adjust PRN. CAD: Per history, remote heart stents and CABG x 3 in 2016. TTE Sep 2018: LV EF 55-60%, reduced right ventricular function, LV hypertrophy, diastolic LV dysfunction. No clear history of acute CHF. Continued aspirin, statin, BB, xarelto. Carotid Stenosis: Duplex March 2021 shoed 50-69% stenosis in bilateral carotid arteries, unchangedsince prior. Continued aspirin, xarelto, statin on admit. Code status: Full, discussed with patient on admit DVT Prophylaxis: Lovenox (home xarelto is at PVD/CAD dose) Current living situation: Home Expected Disposition: Likely home pending PT/OT recommendations Estimated discharge date: 01/21/22 Gustavo Gonzalez , See attending attestation for corrections to above note Please call Resident assigned in treatment team for first contact, then second year on service. After hours please call Over night resident signed into treatment team. Subjective: No acute events overnight. Resting comfortably on room air. States his pain has been well controlled, much improved since being admitted. No acute complaints. Denies any fevers, chills, night sweats,shortness of breath. Last BM this morning. Physical Exam: BP (!) 105/59 Pulse 66 Temp 98.3 F (36.8 C) (Oral) Resp 14 Ht 6' 2 Wt 113.4 kg (250 lb) SpO2 91% BMI 32.10 kg/m General: NAD Eyes: EOMI ENT: neck supple Cardiovascular: Regular rate, rhythm Respiratory: Clear to auscultation, no increased respiratory effort. Gastrointestinal: Soft, non tender, non-distended. Genitourinary: no suprapubic tenderness Musculoskeletal: No edema. Skin: warm, dry, left lower extremity edematous, erythematous, tenderness, mid- foot amputation present Neuro: Alert, oriented, no focal neurologic deficits. Psych: Mood appropriate. Current Medications: aspirin 81 mg Oral Daily atorvastatin 40 mg Oral Daily docusate sodium 100 mg Oral BID enoxaparin (LOVENOX) injection 40 mg Subcutaneous Daily gabapentin 100 mg Oral Q8H [facility] losartan 50 mg Oral Daily with lunch metoprolol tartrate 50 mg Oral BID pantoprazole 40 mg Oral Daily sodium chloride (PF) 5 mL Intravenous Q8H [facility] tiotropium bromide 2 puff Inhalation Daily vancomycin 1,750 mg Intravenous Q36H Labs, Imaging and Studies reviewed: Results from last 7 days Lab Units 01/19/22 0336 01/18/22211601/18/22 2105 WBC K/mcL 5.34 -- 6.76 HGB g/dL 12.4* -- 14.0 HCT % 36.8* -- 39.2* HEMATOCRITPOC % -- 42 -- PLT K/mcL 115* -- 150 Results from last 7 days Lab Units 01/19/22 0336 01/18/22 2117 01/18/22 2105 SODIUM mmol/L 141 -- 138 POTASSIUM mmol/L 4.1 -- 4.2 CHLORIDE mmol/L 108 -- 103 BICARB mmol/L 22 -- 26 BUN mg/dL 13 -- 14 POC BUN mg/dL -- 14 -- CREATININE mg/dL 1.08 -- 1.10 POC CREATININE (EPOC) mg/dL -- 1.35* -- EGFR mL/min/1.73 m2 63 -- 62 GLUCOSE mg/dL 90 -- 107* CALCIUM mg/dL 8.4 -- 9.2 Associated attestation - Muna Otto MD - 01/20/2022 2:13 PM EDT Attending Attestation (GC) Tristin Powell is a 82 y.o. male with a history of HTN, HFpEF, PAD complicated by Bypass, Stenting, and L Foot Amputation, CAD who presented to [facility] on 01/18/22 with 3-4 days of progressive L ankle redness, warmth, pain. PCP gave Atbx (Keflex/Bactrim) but no improvement after two doses. Admitted for left lower extremity cellulitis, course complicated by pulmonary nodule and new diagnosis of chronic obstructive pulmonary disease. Hemodynamically stable overnight, afebrile, blood pressure low-normal. Notable new labs/imaging include WBC 4. Patient reports feeling a little better, less pain. He had little to no swelling in leg when he woke up (on left) but with legs dangling while eating breakfast and while mobilizing to bathroom some swelling in left lower extremity stump now. No fevers or chills, otherwise feels well. Discussed this could've been related to his stump prothesis. A/P: LLE Cellulitis: History of MRSA infection 2019. CTA Runoff 01/18/22: no significant vascular change,good flow with collaterals, 1.5cm LLL nodule. Vanc continued for 48h, suspect adjust to PO bactrim on discharge if improving. Discussed he should follow up with [facility] in [place] to further explore if his stump prothesis could've caused abrasion that led to infection. Could also follow up with Dr. Mann (Podiatry). Lung Nodule: CT Chest 01/19/22: 1.6cm LLL nodule, emphysema, atherosclerosis, hiatal hernia, fatty liver. Pulmonary followed and felt low-risk, recommended 3 month repeat scan to monitor for stability. Newly Diagnosed COPD: Spiriva started. Recommended outpatient formal PFTs. Pancreatic Lesion: <1cm in pancreatic tail. No b-symptoms. Follow up outpatient. Current living situation: Home Expected Disposition: PTOT pending Estimated discharge date: 01/21/22? - pending cellulitis, swelling, and mobility I saw and examined Tristin Powell independently reviewing labs, imaging, and consultation notes on 01/20/2022. I was physically present for the harper portions of the services provided. I agree with the plan and documentation as noted by the Resident Physician with the above mentioned additions and exceptions. Patient is known to me from this admission. See note below for assessment and plan of additional medical problems. On exam: No acute distress; EOMI; neck supple; heart RRR; lungs clear; belly soft, NTND; lower extremity without swelling in right, mild pitting edema left lower extremity; skin with redness, slightly improved? (see photo); alert and oriented, no focal deficits; mood appropriate. * Alma Delia Rosas MD - 01/19/2022 6:43 AM EDT [facility] [place]19/2022 Tristin Bazan Sherry 1940 [id number] Assessment/Plan: Tristin Powell is a 82 y.o. male with a history of HTN, CAD, PVD who presented to [facility] 01/18/2022 with progressive left ankle pain, redness, swelling not improved with oral antibiotics. Admit XR non-acute, temp 100.7, CRP 63.5, WBC 6.76, ESR 18. LLE Cellulitis: Per chart, hx MRSA in 2019. Presented progressive severe left ankle pain, edema, warmth, tenderness x 3 days CMO & PRESIDENT not improved with keflex/bactrim. Admit temp 100.7. Admit blood cultures NGTD. Admit CTA/runoff with no evidence of deeper infection, LLE graft patent. Continue antibiotics, vancomycin, will change ceftriaxone to unasyn today. Pain control. May consider podiatry consultthis admission. Bilateral PAD: Per history. LLE angio w/ balloon/stent 08/09/18. 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 Left femoral to peroneal bypass 09/07/18 (Dr. Sarabia, vascular surgery). 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 Mann, podiatry). Right YAMILE 0.March. Continued aspirin and Xarelto 2.5mg BID. Dr. Sarabia ordered outpatient YAMILE and bypass graft duplex prior to admit. CTA/lower extremity runoff results with patent left bypass graft and new occlusion in right peroneal artery however distal blood flow still present. No role for vascular consult at this time, will continue to monitor closely. Acute Hypoxemic Respiratory Failure: No home O2. Placed on O2 in the ER. SpO2 99% on 2L NC. Weaned to room air in the ER with SpO2 96% on room air. HTN: Per history. Continued home losartan, BB. Adjust PRN. CAD: Per history, remote heart stents and CABG x 3 in 2017. TTE Sep 2018: LV EF 55-60%, reduced right ventricular function, LV hypertrophy, diastolic LV dysfunction. No clear history of acute CHF. Continued aspirin, statin, BB, xarelto. Carotid Stenosis: Duplex March 2021 shoed 50-69% stenosis in bilateral carotid arteries, unchangedsince prior. Continued aspirin, xarelto, statin on admit. Code status: Full, discussed with patient on admit DVT Prophylaxis: Lovenox (home xarelto is at PVD/CAD dose) Current living situation: Home Expected Disposition: TBD Estimated discharge date: TBD Alma Delia Rosas , See attending attestation for corrections to above note Please call Resident assigned in treatment team for first contact, then second year on service. After hours please call Over night resident signed into treatment team. Subjective: Patient admitted overnight. He has been afebrile since his initial fever on admit, however was given one dose of tylenol overnight. He had a CT angiogram which showed that his LLE graft patent, evidence of cellulitis. Images thus far have not shown evidence of osteomyelitis. Patient states that hisLLE still hurts however it has improved since he came in. He denies any extension of the pain, tenderness, erythema up his leg. He is able to move his foot now without severe pain. Denies any fevers,chills, night sweats. Physical Exam: BP (!) 132/50 Pulse 68 Temp 98.8 F (37.1 C) (Oral) Resp 16 Ht 6' 2 Wt 113.4 kg (250 lb) SpO2 96% BMI 32.10 kg/m General: NAD Eyes: EOMI ENT: neck supple Cardiovascular: Regular rate, rhythm Respiratory: Clear to auscultation, no increased respiratory effort. Gastrointestinal: Soft, non tender, non-distended. Genitourinary: no suprapubic tenderness Musculoskeletal: No edema. Skin: warm, dry, left lower extremity edematous, erythematous, tenderness, mid- foot amputation present Neuro: Alert, oriented, no focal neurologic deficits. Psych: Mood appropriate. Current Medications: cefTRIAXone (ROCEPHIN) IVPB 2,000 mg Intravenous Q24H enoxaparin (LOVENOX) injection 40 mg Subcutaneous Daily gabapentin 100 mg Oral Q8H [facility] metoprolol tartrate 50 mg Oral BID rivaroxaban 2.5 mg Oral BID sodium chloride (PF) 5 mL Intravenous Q8H [facility] [START ON 01/20/2022] vancomycin 1,750 mg Intravenous Q36H Labs, Imaging and Studies reviewed: Results from last 7 days Lab Units 01/19/22 0336 01/18/22211601/18/222104 WBC K/mcL 5.34 -- 6.76 HGB g/dL 12.4* -- 14.0 HCT % 36.8* -- 39.2* HEMATOCRITPOC % -- 42 -- PLT K/mcL 115* -- 150 Results from last 7 days Lab Units 01/19/22 0336 01/18/22211601/18/222104 SODIUM mmol/L 141 -- 138 POTASSIUM mmol/L 4.1 -- 4.2 CHLORIDE mmol/L 108 -- 103 BICARB mmol/L 22 -- 26 BUN mg/dL 13 -- 14 POC BUN mg/dL -- 14 -- CREATININE mg/dL 1.08 -- 1.10 POC CREATININE (EPOC) mg/dL -- 1.35* -- EGFR mL/min/1.73 m2 63 -- 62 GLUCOSE mg/dL 90 -- 107* CALCIUM mg/dL 8.4 -- 9.2 Associated attestation - Muna Otto MD - 01/20/2022 6:38 AM EDT Attending Attestation (GC) Tristin Powell is a 82 y.o. male with a history of HTN, HFpEF, PAD complicated by Bypass, Stenting, and L Foot Amputation, CAD who presented to [facility] on 01/18/22 with 3-4 days of progressive L ankle redness, warmth, pain. PCP gave Atbx (Keflex/Bactrim) but no improvement after two doses. In ED: CRP 64, WBC 7, Temp 100.7F. Course complicated by finding of lung nodule. Hemodynamically stable overnight, on/off oxygen, doesn't wear at home. Notable new labs/imaging include CT as below. Patient reports feeling left foot/ankle is improved, less painful and less red. Onexam: No acute distress; EOMI; neck supple; heart RRR; lungs clear; belly soft, NTND; lower extremities without swelling; skin with redness (see photo); alert and oriented, no focal deficits; mood appropriate. A/P: LLE Cellulitis: History of MRSA infection 2019. CTA Runoff 01/18/22: no significant vascular change,good flow with collaterals, 1.5cm LLL nodule. Vanc. Consider podiatry consult if not improving. Lung Nodule: CT Chest 01/19/22: 1.6cm LLL nodule, emphysema, atherosclerosis, hiatal hernia, fatty liver. Pulmonary followed and felt low-risk, recommended 3 month repeat scan to monitor for stability. Pancreatic Lesion: <1cm in pancreatic tail. No b-symptoms. Follow up outpatient. Current living situation: Home Expected Disposition: Home? Estimated discharge date: TBD I saw and examined Tristin Powell independently reviewing labs, imaging, and consultation notes on 01/19/2022. I was physically present for the harper portions of the services provided. I agree with the plan and documentation as noted by the Resident Physician with the above mentioned additions and exceptions. Patient is new to me today. See note below for assessment and plan of additional medical problems. * El Owen RPh,PharmD - 01/19/2022 2:14 AM EDT PHARMACOTHERAPY NOTE: Antimicrobial Therapy Initiation Assessment / Plan: Tristin Powell is a 82 y.o. male initiated on antimicrobial therapy for skin/soft tissue infection. Patient initiated on vancomycin 1750mg q36h Vancomycin trough goal is 10-15 mcg/mL. Will obtain level when at steady state or when clinically appropriate. Will monitor serum creatinine levels and urine output (if available) daily.vancomyicin / aminoglycoside recommendations:[id number]:s} Pharmacy will continue to follow, order levels, and make adjustments as needed. Please call pharmacy with questions. Current antibiotic regimen includes: ceftriaxone 2000mg q24h Objective: Ht Readings from Last 1 Encounters: 01/18/22 6' 2 (188 cm) Wt Readings from Last 1 Encounters: 01/18/22 113.4 kg (250 lb) [place] body weight: 82.2 kg (181 lb 3.5 oz) Adjusted ideal body weight: 94.7 kg (208 lb 11.7 oz) Labs include: WBC (K/mcL) Date Value 01/18/2022 6.76 Creatinine (mg/dL) Date Value 01/18/2022 1.35 (H) 01/18/2022 1.10 10/21/2019 1.1 Estimated Creatinine Clearance: 48.2 mL/min (A) (by C-G formula based on SCr of 1.35 mg/dL (H)). Patient Tmax (last 24 hours): 100.7 F . Micro: Procedure Component Value Units Date/Time Blood Culture Aerobic/Anaerobic [[id number]] (Normal) Collected: 01/18/222104 Order Status: Completed Specimen: Blood, Peripheral Updated: 01/18/222357 Culture In Progress; No Growth to Date Blood Culture Aerobic/Anaerobic [[id number]] (Normal) Collected: 01/18/222104 Order Status: Completed Specimen: Blood, Peripheral Updated: 01/18/222357 Culture In Progress; No Growth to Date Pharmacist: El Owen RPh,PharmD Contact Number: documented in this [id number] Hospital course Narrative* Muna Otto MD - 01/21/2022 2:32 PM EDT Images from the original note were not included. MEDONE DISCHARGE SUMMARY Tristin Powell Account: [id number] Admitted: 01/18/2022 PCP: Flash Lovelace MD Discharge Date/Time: 01/21/22 2:32 PM Handoff to PCP PCP to follow up 1) Pulmonary nodule - workup with PET with Pulmonary 2) Pancreatic lesion - follow up, consider repeat imaging and/or referral to GI (concern for IPMN) 3) PFTs outpatient Clinical Summary Tristin Powell is a 82 y.o. male with a history of HTN, HFpEF, PAD complicated by Bypass, Stenting, and L Foot Amputation, CAD who presented to [facility] on 01/18/22 with 3-4 days of progressive L ankle redness, warmth, pain. PCP gave Atbx (Keflex/Bactrim) but no improvement after two doses. Admitted for left lower extremity cellulitis, course complicated by pulmonary nodule and new diagnosis of chronic obstructive pulmonary disease. Patient ultimately diagnosed with (1) LLE Cellulitis; (2) New COPD; (3) Pulmonary Nodule; (4) Pancreatic lesion. He will complete the antibiotics he already has at home (8 days keflex/bactrim). We gave him 3 daysof additional bactrim to complete 14d course. He will follow up with Pulmonary for PFTs and PET scan. He will follow up with PCP for further monitoring of pancreatic lesion. He will follow up with his php developer (Dr. Mann) and [facility] in [place] to determine if his prothesis could be causing some skin breakdown that lead to infection. He will also follow up his vascular surgeon (Dr. Sarabia) as planned. Patient discharged to home with family. I offered him home health care but he reported doing well at home and declined further assistance. On day of discharge, alert, oriented full name, location, and year. Moving around with wheelchair, didn't have prothesis. Aware of follow up plan for lung nodule and pancreatic lesion. I saw and examined Tristin Powell independently reviewing labs, imaging, and consultation notes on 01/21/2022. I was physically present for the harper portions of the services provided. I agree with the plan and documentation as noted by the Resident Physician with the above mentioned additions and exceptions. Patient is known to me from this admission. See note below for assessment and plan of additional medical problems. Time spent on discharge: > 30 minutes. Exam: No acute distress; EOMI; neck supple; heart RRR; lungs clear; belly soft, NTND; lower extremity without swelling in right, mild pitting edema left lower extremity; skin with redness (improved, see photo); alert and oriented, no focal deficits; mood appropriate Discharge Medications Medication List START taking these medications albuterol 2.5 mg /3 mL (0.083 %) nebulizer solution Commonly known as: PROVENTIL Take 3 mL (2.5 mg total) by nebulization every 6 (six) hours as needed for wheezing . tiotropium bromide 2.5 mcg/actuation Mist Commonly known as: SPIRIVA RESPIMAT Inhale 2 (two) puffs daily Start: 01/22/22. Start taking on: January 22, 2022 CHANGE how you take these medications * sulfamethoxazole-trimethoprim 800-160 mg per tablet Commonly known as: BACTRIM DS,SEPTRA DS What changed: Another medication with the same name was added. Make sure you understand how and when to take each. * sulfamethoxazole-trimethoprim 800-160 mg per tablet Commonly known as: BACTRIM DS,SEPTRA DS Take 1 (one) tablet by mouth 2 (two) times a day for 3 days Start: 01/29/22. Start taking on: January 29, 2022 What changed: You were already taking a medication with the same name, and this prescription was added. Make sure you understand how and when to take each. * This list has 2 medication(s) that are the same as other medications prescribed for you. Read thedirections carefully, and ask your doctor or other care provider to review them with you. CONTINUE taking these medications ammonium lactate 12 % lotion Commonly known as: LAC-HYDRIN Apply topically 2 (two) times a day . aspirin 81 mg Cap atorvastatin 40 MG tablet Commonly known as: LIPITOR cephALEXin 500 MG capsule Commonly known as: KEFLEX fluticasone propionate 50 mcg/actuation nasal spray Commonly known as: FLONASE 2 (two) sprays by Each Nare route daily . gabapentin 100 MG capsule Commonly known as: NEURONTIN losartan 50 MG tablet Commonly known as: COZAAR metoprolol tartrate 50 MG tablet Commonly known as: LOPRESSOR omeprazole 20 MG capsule Commonly known as: PRILOSEC oxyCODONE-acetaminophen 5-325 mg per tablet Commonly known as: PERCOCET polyethylene glycol 17 gram powder Commonly known as: MIRALAX rivaroxaban 2.5 mg tablet Commonly known as: XARELTO zolpidem 10 mg tablet Commonly known as: AMBIEN STOP taking these medications acetaminophen 325 MG tablet Commonly known as: TYLENOL celecoxib 200 MG capsule Commonly known as: CELEBREX docusate sodium 100 MG capsule Commonly known as: COLACE nitroGLYCERIN 0.4 MG SL tablet Commonly known as: NITROSTAT Where to Get Your Medications These medications were sent to [facility] [id number] [facility] [address] [facility] [address] [facility] [address] [facility] [address] albuterol 2.5 mg /3 mL (0.083 %) nebulizer solution sulfamethoxazole-trimethoprim 800-160 mg per tablet tiotropium bromide 2.5 mcg/actuation Mist Physician(s) Family: Flash Lovelace MD, , Address: [address] [place] [address] / [place] [id number] Follow Up: Flash Lovelace MD [address] [facility] [address] Follow up Carson Gallagher MD [address] [place] [address] [facility] [address] [facility] [address] Follow up Please call to set up appointment to follow up on your lung nodule and newly diagnosed COPD (chronic obstructive pulmonary disease) Flynn Mann DPM [address] [facility] [address] [facility] [address] Schedule an appointment as soon as possible for a visit Additional Information: Patient seen and examined day of discharge. For more information regarding patient's care, including complete radiology reports, please contact [facility] at Patient instructions, including activity, were given to the patient/family at discharge. Please seethe After Visit Summary in the medical record for details. Time spent on discharge: > 30 minutes Completed by: Muna Otot on 01/21/22, 2:32 PM documented in this [id number] Hospital Discharge instructions * Discharge Instr - AVS First Page* Muna Otto MD - 01/21/2022 11:26 AM EDT Dear Mr. Powell, You came to [facility] for left ankle pain, redness, and swelling found to be dueto Cellulitis. While you were here we treated you with antibiotics and pain medications. You were also found to have a lung nodule was were seen by pulmonology, but with no further interventions planned while you are in the hospital. You also met with the following specialists and they have the following recommendations: - Pulmonology, recommend follow-up outpatient for further imaging of your lung nodule and pulmonaryfunction tests for your COPD. Start Spiriva and Albuterol inhalers. You had the following procedures or imaging done: - Xrays of left ankle and foot which showed no signs of bone infection. - CT angiogram which showed that you left leg bypass was open with no clots, and also showed a leftlung nodule, and also showed a small pancreatic nodule - CT chest which further mentioned left lung nodule and severe emphysema. We made the following changes to your medications: - Re-start and complete the remainder of you Bactrim and Keflex antibiotics tomorrow 01/22. - Once the remainder of your Bactrim is finished, take the 3 additional days of Bactrim that were prescribed - Start taking Spiriva 2 puffs daily, and Albuterol as needed Please continue to take all of your other home medications the same. Please follow up with the following providers: - Pulmonology - PCP for routine care - PCP to discuss further pancreatic workup - [facility] in [place], [place] to discuss your prosthetics. Thank you for letting us be a part of your care team, [facility] * Attachments The following attachments cannot be sent through Care Everywhere. * Cellulitis ([place]) * Pulmonary Nodules: General Info ([place]) documented in this [id number] Consult note* Leeanna Melgoza, OT - 01/21/2022 8:20 AM EDT Occupational Therapy OCCUPATIONAL THERAPY EVALUATION AND DISCHARGE NOTE No OT indicated Skilled Therapy Needs After Discharge Anticipate Resolution of Current Assessment Limitations Including: Pain Are Skilled Therapy Services Needed After Discharge: No DME Recommendation: None Rehab Potential: Excellent Outcomes Measures Prior Function Daily Activity Raw Score: 24 Prior Function Daily Activity % Impaired: 0% AM-PAC Daily Activity Raw Score: 23 AM-PAC Daily Activity % Impaired: 15.86% Occupational Therapy Assessment The patient's current functional participation deficits are LE dressing. This reduced independence will limit their life roles of parent, family member, community member. The patient's co morbiditiesdo affect patient performance in the above activities and roles. The performance deficits are a result of musculoskeletal, vascular impairment(s) in left, lower extremity including pain, safety, and knowledge deficit. 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 The patient's compliance is a geek squad manager to return to prior level of function. During the assessment, no modification of task was required and limited treatment options were identified in the plan of care. This consultation required expanded review of the medical and therapy history. Activity Tolerance Activity Tolerance: Endurance does not limit participation in activity Therapy Precautions Orthotic Devices: Yes Lower Extremity: Prosthesis, Left Weight Bearing Status: X RUE: Non Wt bearing (Pt keeps NWB) General Rehab Precautions: Fall risk Cognition Arousal/Alertness: Appropriate responses to stimuli Orientation Level: Oriented X4 Executive functioning: Insight, Min impairment Safety Judgment: Decreased awareness of need for assistance, Decreased awareness of need for safety Problem Solving: Able to problem solve independently Attention: Attends to quiet environment Hearing Status: WFL Social Interaction: Appropriate, Cooperative, Impulsive ADL Grooming: Independent Upper Body Bathing: Independent Lower Body Bathing: Independent Upper Body Dressing: Independent Lower Body Dressing: Stand by assist (without prosthesis) Toileting: Independent (urinal) IADL Bed Mobility Supine to Sit: Independent Sit to Supine: Independent Functional Transfers Sit to Stand: Supervision Additional Assessment Details Pt able to stand and pull pants over hips with SBA; balanced and stable on right foot only Home Living Obtained Home Living and PLOF info from: Patient Lives With: Alone Type of Home: House Home Layout: One level Steps to enter home: Ramped entrance Rails to enter home: 2 rails Number of stairs to enter home: 2 Bathroom Shower/Tub: Tub/shower unit Bathroom Toilet: Standard Bathroom Equipment: Grab bars in shower, Shower chair, Hand-held showerhead Bathroom Accessibility: Accessible via wheelchair Mobility Equipment: Wheeled walker, Lift chair ADL Equipment: (none; denied after SHANNON) Additional Objective Details - Home Living: Only occasionally uses walker and cane at baseline. Prior Level of Function Receives Help From: Family Level of [place] - Transfers/Ambulation/Mobility: Independent with functional transfers, Independent with household ambulation, Independent with community ambulation Level of [place] - ADLs: Independent Level of [place] - Homemaking: Independent Driving: Patient drives Vocational: Retired Subjective Impression - Prior Function: Pt goes out with brother frequently to [place] to fish; children nearby and supportive 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 Procedure: LEFT MIDFOOT AMPUTATION; Surgeon: Flynn Mann DPM; Location: [facility]; Service: Podiatry ANKLE SURGERY Left BYPASS PERONEAL FEMORAL Right 09/07/2018 Procedure: BYPASS PERONEAL FEMORAL, RIGHT SAPHENOUS VEIN HARVEST, COMPLETION ANGIOGRAM; Surgeon: Mohsen Sarabia MD; Location: [facility]; Service: Cardiovascular CARDIAC CATHETERIZATION Left 09/05/2018 Procedure: Angio Lower Extremity; Surgeon: Ben Hahn MD; 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 This note stands as the current Discharge Summary upon patient discharge from the hospital or completion of Occupational Therapy Plan of Care. [id number] Consult note* Leeanna Melgoza OT - 01/21/2022 8:20 AM EDT Occupational Therapy OCCUPATIONAL THERAPY EVALUATION AND DISCHARGE NOTE No OT indicated Skilled Therapy Needs After Discharge Anticipate Resolution of Current Assessment Limitations Including: Pain Are Skilled Therapy Services Needed After Discharge: No DME Recommendation: None Rehab Potential: Excellent Outcomes Measures Prior Function Daily Activity Raw Score: 24 Prior Function Daily Activity % Impaired: 0% AM-PAC Daily Activity Raw Score: 23 AM-PAC Daily Activity % Impaired: 15.86% Occupational Therapy Assessment The patient's current functional participation deficits are LE dressing. This reduced independence will limit their life roles of parent, family member, community member. The patient's co morbiditiesdo affect patient performance in the above activities and roles. The performance deficits are a result of musculoskeletal, vascular impairment(s) in left, lower extremity including pain, safety, and knowledge deficit. 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 The patient's compliance is a geek squad manager to return to prior level of function. During the assessment, no modification of task was required and limited treatment options were identified in the plan of care. This consultation required expanded review of the medical and therapy history. Activity Tolerance Activity Tolerance: Endurance does not limit participation in activity Therapy Precautions Orthotic Devices: Yes Lower Extremity: Prosthesis, Left Weight Bearing Status: X RUE: Non Wt bearing (Pt keeps NWB) General Rehab Precautions: Fall risk Cognition Arousal/Alertness: Appropriate responses to stimuli Orientation Level: Oriented X4 Executive functioning: Insight, Min impairment Safety Judgment: Decreased awareness of need for assistance, Decreased awareness of need for safety Problem Solving: Able to problem solve independently Attention: Attends to quiet environment Hearing Status: WFL Social Interaction: Appropriate, Cooperative, Impulsive ADL Grooming: Independent Upper Body Bathing: Independent Lower Body Bathing: Independent Upper Body Dressing: Independent Lower Body Dressing: Stand by assist (without prosthesis) Toileting: Independent (urinal) IADL Bed Mobility Supine to Sit: Independent Sit to Supine: Independent Functional Transfers Sit to Stand: Supervision Additional Assessment Details Pt able to stand and pull pants over hips with SBA; balanced and stable on right foot only Home Living Obtained Home Living and PLOF info from: Patient Lives With: Alone Type of Home: House Home Layout: One level Steps to enter home: Ramped entrance Rails to enter home: 2 rails Number of stairs to enter home: 2 Bathroom Shower/Tub: Tub/shower unit Bathroom Toilet: Standard Bathroom Equipment: Grab bars in shower, Shower chair, Hand-held showerhead Bathroom Accessibility: Accessible via wheelchair Mobility Equipment: Wheeled walker, Lift chair ADL Equipment: (none; denied after SHANNON) Additional Objective Details - Home Living: Only occasionally uses walker and cane at baseline. Prior Level of Function Receives Help From: Family Level of [place] - Transfers/Ambulation/Mobility: Independent with functional transfers, Independent with household ambulation, Independent with community ambulation Level of [place] - ADLs: Independent Level of [place] - Homemaking: Independent Driving: Patient drives Vocational: Retired Subjective Impression - Prior Function: Pt goes out with brother frequently to [place] to fish; children nearby and supportive 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 Procedure: LEFT MIDFOOT AMPUTATION; Surgeon: Flynn Mann DPM; Location: [facility]; Service: Podiatry ANKLE SURGERY Left BYPASS PERONEAL FEMORAL Right 09/07/2018 Procedure: BYPASS PERONEAL FEMORAL, RIGHT SAPHENOUS VEIN HARVEST, COMPLETION ANGIOGRAM; Surgeon: Mohsen Sarabia MD; Location: [facility]; Service: Cardiovascular CARDIAC CATHETERIZATION Left 09/05/2018 Procedure: Angio Lower Extremity; Surgeon: Ben Hahn MD; 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 This note stands as the current Discharge Summary upon patient discharge from the hospital or completion of Occupational Therapy Plan of Care. * Jay Cutler, PT - 01/20/2022 3:59 PM EDT Physical Therapy PHYSICAL THERAPY EVALUATION and TREATMENT NOTE PHYSICAL THERAPY EVALUATION Skilled Therapy Needs After Discharge Anticipate Resolution of Current Assessment Limitations Including: Mechanical Barriers, Social Support Are Skilled Therapy Services Needed After Discharge: Yes Intensity of Skilled Therapy: 2-3 days per week (Pt's current AMPac score is low mostly because he did not have his ankle foot prosthesis with him.) Anticipated Duration of Skilled Therapy: Duration 7 - 10 days DME Recommendation: None (Pt has all needed mobility DME at home.) Rehab Potential: Good Outcomes Measures Prior Function - Basic Mobility Raw Score: 24 Points Prior Function - Basic Mobility % Impaired: 0% AM-PAC Basic Mobility Raw Score: 13 Points AM-PAC Basic Mobility % Impaired: 57.65 Physical Therapy Assessment History: The following factors influence the patient's participation in the PT plan of care: Personal Factors: Age, Limited Baseline Mobility Environmental Factors: Steps to enter home, Lives alone The following co-morbidities (from this admission or prior) influence the patient's participation in this plan of care: Hx of Left Transmetatarsal Amputation, Ankle Surgery, Prostate Cancer, VascularDisease, Arthritis Number of History elements affecting this patient's PT plan of care: 3 or more Examination of Body Systems: The patient presents with: Musculoskeletal impairments: Strength, Functional Endurance, Pain Neurologic Impairments: Balance Cardiopulmonary Impairments: Activity Tolerance Vascular Impairments: Edema, Amputation, Foot / Leg ulcer. These impairments result in limitations of Functional Transfers, Gait, Activity Tolerance, Stair-Climbing. These impairments result in restrictions of Household mobility. Number of Body Systems elements affecting this patient's PT plan of care: 4 or more. Clinical Presentation: The patient's clinical presentation for this PT evaluation is evolving with changing characteristics as evidenced by current PT documentation. Activity Tolerance Therapy Precautions Orthotic Devices: Yes Lower Extremity: Prosthesis (Pt uses Ankle foot Prosthesis at baseline. Did not bring to hospital.) Weight Bearing Status: X LLE: (Pt keeps LLE NWB due to pain and not having prosthesis with him in the hospital.) General Rehab Precautions: Fall risk (Pt reports having Right SHANNON-Anterior Approach in Jun 2021.) Balance Assessment Sitting Balance - Static: Modified independent Sitting Balance - Dynamic: Modified independent Standing Balance - Dynamic: Stand by assist, Contact guard assist (when in stand-scoot posture.) Careers Counsellor - Standing Dynamic: BUE (wheelchair; and NWB on LLE.) Loss of Balance- Standing Dynamic: intermittent Bed Mobility Rolling: Modified independent Supine to Sit: Modified independent Sit to Supine: Modified independent Careers Counsellor: bedrails, bed positioning mechanics Transfers Squat Pivot Transfers: Stand by assist, Contact guard assist Careers Counsellor: wheelchair Additional Transfer Trial 2: Yes Squat Pivot Transfers Trial 2: Stand by assist, Contact guard assist Careers Counsellor Trial 2: wheeled walker Gait/Locomotion Wheelchair Mobility: Contact guard assist Wheelchair distance: 150 Feet Wheelchair Environment/Terrain: open/community environment, multiple distractions Home Living Obtained Home Living and PLOF info from: Patient Lives With: Alone Type of Home: House Home Layout: One level Steps to enter home: Yes Rails to enter home: 2 rails Number of stairs to enter home: 2 Bathroom Shower/Tub: Walk-in shower Mobility Equipment: Wheelchair - manual, Wheeled walker, Cane Additional Objective Details - Home Living: Only occasionally uses walker and cane at baseline. Prior Level of Function Level of [place] - Transfers/Ambulation/Mobility: Independent with functional transfers, Independent with household ambulation Level of [place] - ADLs: Independent Subjective Impression - Prior Function: Pt reports he is independent at baseline with or without his prosthesis. He does wheelchair transfers when not using his prosthesis. PHYSICAL THERAPY TREATMENT NOTE Total Treatment Time (Total Session Time): 31 Minutes Total Timed Code Treatment Minutes: 19 Minutes Neuromuscular Reeducation Gait Training Skilled Intervention Provided: tactile cues, patient education For: wheelchair propulsion technique (especially during turns and navigating around obstacles.) Resulting in: improved activity tolerance, improved performance, increased insight into deficits, improved functional independence Therapeutic Activities Bed Mobility Skilled Intervention Provided: verbal cues, tactile cues, facilitation, patient education For: safe use of bedrails and/or equipment, safety during functional tasks Resulting in: improved activity tolerance, improved performance, improved functional independence Transfers Skilled Intervention Provided: verbal cues, monitoring patient response with activity, monitoring patient response with positional changes, patient education For: fall prevention, efficient movement, proper body mechanics Resulting in: improved activity tolerance, improved awareness, decreasing fall risk, improved performance Functional Transfers (Car and/or Toilet Transfers) Therapeutic Exercises Additional Treatment Details Pt's daughter was at bedside throughout therapy session . 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 Procedure: LEFT MIDFOOT AMPUTATION; Surgeon: Flynn Mann DPM; Location: [facility]; Service: Podiatry ANKLE SURGERY Left BYPASS PERONEAL FEMORAL Right 09/07/2018 Procedure: BYPASS PERONEAL FEMORAL, RIGHT SAPHENOUS VEIN HARVEST, COMPLETION ANGIOGRAM; Surgeon: Mohsen Sarabia MD; Location: [facility]; Service: Cardiovascular CARDIAC CATHETERIZATION Left 09/05/2018 Procedure: Angio Lower Extremity; Surgeon: Ben Hahn MD; 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 This note stands as the current Discharge Summary upon patient discharge from the hospital or completion of Physical Therapy Plan. * Carson Banks MD - 01/19/2022 2:40 PM EDTAssociated Order(s): IP CONSULT TO PULMONOLOGY Pulmonary and Critical Care Consult Note Impression and Recommendations Tristin Powell is a 82 y.o. male with a past medical history that includes HTN, CAD, PVD. He presented on 01/18/2022 with progressive left ankle pain, redness, swelling not improved with oral antibiotics. Pulmonology consulted to evaluated lung nodule found on chest CT. Lung nodule -Overall relatively low concern for malignancy given imaging findings and lack of significant risk factors -No smoking history. 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 Background emphysema, focal bronchiectasis. Several calcified granulomas. -Solitary lung nodule malignancy risk ([place]) score: 17.6% -Recommend PET as an outpatient and follow up with Refining Engineer closer to home. Possible biopsy iffindings persist. COPD -Patient notes prior diagnosis of COPD -No history of formal PFT's -CT chest 01/19/22: Background emphysema, focal bronchiectasis. Several calcified granulomas. -Recommend PFT's as an outpatient. Recommend bronchodilators, Spiriva. Will also give Afrin, no greater than 2 days duration to avoid rhinitis medicamentosa Acute hypoxemic respiratory failure -Likely component of emphysema contributing to respiratory status -No history of home oxygen -Initially requiring 2L nasal cannula in the ED, but successfully weaned to room air Assessment and plan to be discussed with attending on service, Dr. Mirza. Final plans per attending attestation. DVT Prophylaxis: Ngoc Banks MD Preliminary Medicine PGY1 Pager: [phone] Reason for Consultation: Suspicious Pulm nodule with emphysema and bronchiectasis, difficult location for biopsy History of Presenting Illness: Patient presenting for left ankle cellulitis. Recent left midfoot amputation with tendon lengthening. CT Scan of abdominal aorta noted some abnormality of the lung, follow up CT Chest was obtained that showed a solid 1.6cm left lower lobe pulm nodule with background emphysema, chronic diffuse inflammatory airway, and focal bronchiectasis and volume loss in the RML and chronic linear scarring withseveral calcified granulomas. Patient denies any personal history of smoking but does endorse secondhand smoke exposure. Notes occupational exposure of inhaling wood dust over the years while working in [employer]. Denies recent weight loss. Notes a few episodes of hemoptysis a few weeks ago. Review of Systems: [x] All other systems were reviewed and negative except for those as specified in History of Present illness. [] Unable to obtain history or ROS secondary to clinical circumstances Past Medical, Surgical, Family, and Social History: 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 Procedure: LEFT MIDFOOT AMPUTATION; Surgeon: Flynn Mann DPM; Location: [facility]; Service: Podiatry ANKLE SURGERY Left BYPASS PERONEAL FEMORAL Right 09/07/2018 Procedure: BYPASS PERONEAL FEMORAL, RIGHT SAPHENOUS VEIN HARVEST, COMPLETION ANGIOGRAM; Surgeon: Mohsen Sarabia MD; Location: [facility]; Service: Cardiovascular CARDIAC CATHETERIZATION Left 09/05/2018 Procedure: Angio Lower Extremity; Surgeon: Ben Hahn MD; 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; Service: Cardiovascular CARDIAC SURGERY 2017 triple bypass EGD N/A 10/10/2018 Procedure: ESOPHAGOGASTRODUODENOSCOPY; Surgeon: Ben Jensne MD; Location: [facility]; Service: Gastroenterology EYE SURGERY Right 2015 FOOT SURGERY ORTHOPEDIC SURGERY STENT PLACEMENT Family History Problem Relation Age of Onset Prostate cancer Brother No Known Problems Mother No Known Problems Father Social History Socioeconomic History Marital status: Tobacco Use Smoking status: Never Smokeless tobacco: Never Vaping Use Vaping Use: Never used Substance and Sexual Activity Alcohol use: Not Currently Drug use: Never Sexual activity: Not Currently Allergies and Medications: Allergies: Allergies Allergen Reactions Doxycycline Elevated blood pressure, GI intolerance/ nausea/vomiting Current meds: aspirin 81 mg Oral Daily atorvastatin 40 mg Oral Daily docusate sodium 100 mg Oral BID enoxaparin (LOVENOX) injection 40 mg Subcutaneous Daily gabapentin 100 mg Oral Q8H SADIA losartan 50 mg Oral Daily with lunch metoprolol tartrate 50 mg Oral BID pantoprazole 40 mg Oral Daily rivaroxaban 2.5 mg Oral BID sodium chloride (PF) 5 mL Intravenous Q8H SADIA [START ON 01/20/2022] vancomycin 1,750 mg Intravenous Q36H Data: Laboratory Data: [x] Pertinent lab data reviewed Radiology: [x] Images personally reviewed Microbiology: [x] Pertinent microbiology data reviewed No results for input(s): PHART, FRJ8YUK, PO2ART, I6VAXWPQ, RESPRATE, TIDALVOL, PEEP, [id number] in the last 72 hours. Recent Labs 01/18/22210401/19/22 0336 WBC 6.76 5.34 HGB 14.0 12.4* PLT 150 115* Recent Labs 01/18/22210401/18/22211601/19/22 0336 NA 138 -- 141 K 4.2 -- 4.1 CL 103 -- 108 BICARB 26 -- 22 BUN 14 14 13 CREATININE 1.10 1.35* 1.08 GLUCOSE 107* -- 90 DENISHA -- 4.7 -- CALCIUM 9.2 -- 8.4 No results for input(s): INR, PTT in the last 72 hours. Physical Exam: Temp: [98.8 F (37.1 C)-100.7 F (38.2 C)] 98.8 F (37.1 C) Heart Rate: [61-79] 71 Resp: [12-22] 16 BP: (115-171)/(47-96) 171/67 No intake or output data in the 24 hours ending 01/19/22 1441 GENERAL: Alert, oriented and in no acute distress. Appears stated age. Daughter at bedside. HEENT: EYES: Pupils equal, round and reactive, extraocular muscles intact. MOUTH: moist and pink with no exudates. NECK: is supple HEART: regular rate and rhythm. No murmurs, rubs or gallops. LUNGS: Clear to auscultation bilaterally. No wheezing, rhonchi or rales. ABDOMEN: Positive bowel sounds, soft, nontender, non-distended. EXTREMITIES: No cyanosis, clubbing or edema in all 4 extremities. Peripheral pulses intact. Left mid-foot amputation noted. NEURO: non-focal, grossly intact. SKIN: grossly free of rash Associated attestation - Ananda Mirza DO - 01/19/2022 5:27 PM EDT The patient was seen and examined with the house staff. I personally reviewed the radiographic images and laboratory data. I agree with the history, physical exam, and assessment and plan with the following comments. Reason for visit/chief complaint: Pulmonary nodule, COPD Mr. Powell is an 82-year-old male with past medical history of hypertension, peripheral vascular disease, CAD who presented with progressive left lower extremity redness, swelling, and pain. Currently being treated for cellulitis with broad-spectrum antibiotics. Incidentally, patient was found to have abnormal lung cuts on CTA of the abdomen/aorta. Dedicated CT chest was then obtained. Patient notes minimal chronic exertional dyspnea. No wheezing. 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 Review of Systems: [x] All other systems were reviewed and negative except for those as specified in History of Present illness. [] Unable to obtain history or ROS secondary to clinical circumstances Assessment/Plan: Pulmonary nodule: Incidentally found 1.2 cm pulmonary nodule noted in the medial aspect of the leftlower lobe as well as several calcified micronodular changes consistent with old granulomatous disease, lower lobe predominant emphysematous changes, and scattered scarlike opacities. Patient is a non-smoker. Nodule appears to be low to intermittent risk for underlying lung malignancy. Appears to be in a very difficult location regarding any biopsy potential in the future, this is not targetable with navigational approach nor any associated lymphadenopathy noted. Also very difficult CT-guided approach given the central position and admixed emphysema. -Recommended outpatient follow-up in the pulmonary medicine clinic close to home with PET CT scan as an outpatient. If lesion is found to be PET avid and given the biopsy limitations as outlined above, possible course would include a EBUS to rule out occult mediastinal disease and possible empiric SBRT to follow. -Patient is okay to follow-up close to home and recommend this to be done at [facility] with either Drs. Carson Gallagher or Wagner Moon. Please place referral to either their clinics at discharge. COPD: Suspected diagnosis with significant emphysematous changes noted on CT likely due to occupational exposures. -Recommend Spiriva and as needed albuterol moving forward as well as follow-up in the pulmonary medicine clinic close to home for formal PFTs. DVT Prophylaxis: Ngoc Mirza DO Pulmonary and Critical Care Medicine 5:26 PM 01/19/22 documented in this [id number] Consult note* Jay Tarango, PT - 01/20/2022 3:59 PM EDT Physical Therapy PHYSICAL THERAPY EVALUATION and TREATMENT NOTE PHYSICAL THERAPY EVALUATION Skilled Therapy Needs After Discharge Anticipate Resolution of Current Assessment Limitations Including: Mechanical Barriers, Social Support Are Skilled Therapy Services Needed After Discharge: Yes Intensity of Skilled Therapy: 2-3 days per week (Pt's current AMPac score is low mostly because he did not have his ankle foot prosthesis with him.) Anticipated Duration of Skilled Therapy: Duration 7 - 10 days DME Recommendation: None (Pt has all needed mobility DME at home.) Rehab Potential: Good Outcomes Measures Prior Function - Basic Mobility Raw Score: 24 Points Prior Function - Basic Mobility % Impaired: 0% AM-PAC Basic Mobility Raw Score: 13 Points AM-PAC Basic Mobility % Impaired: 57.65 Physical Therapy Assessment History: The following factors influence the patient's participation in the PT plan of care: Personal Factors: Age, Limited Baseline Mobility Environmental Factors: Steps to enter home, Lives alone The following co-morbidities (from this admission or prior) influence the patient's participation in this plan of care: Hx of Left Transmetatarsal Amputation, Ankle Surgery, Prostate Cancer, VascularDisease, Arthritis Number of History elements affecting this patient's PT plan of care: 3 or more Examination of Body Systems: The patient presents with: Musculoskeletal impairments: Strength, Functional Endurance, Pain Neurologic Impairments: Balance Cardiopulmonary Impairments: Activity Tolerance Vascular Impairments: Edema, Amputation, Foot / Leg ulcer. These impairments result in limitations of Functional Transfers, Gait, Activity Tolerance, Stair-Climbing. These impairments result in restrictions of Household mobility. Number of Body Systems elements affecting this patient's PT plan of care: 4 or more. Clinical Presentation: The patient's clinical presentation for this PT evaluation is evolving with changing characteristics as evidenced by current PT documentation. Activity Tolerance Therapy Precautions Orthotic Devices: Yes Lower Extremity: Prosthesis (Pt uses Ankle foot Prosthesis at baseline. Did not bring to hospital.) Weight Bearing Status: X LLE: (Pt keeps LLE NWB due to pain and not having prosthesis with him in the hospital.) General Rehab Precautions: Fall risk (Pt reports having Right SHANNON-Anterior Approach in Jun 2021.) Balance Assessment Sitting Balance - Static: Modified independent Sitting Balance - Dynamic: Modified independent Standing Balance - Dynamic: Stand by assist, Contact guard assist (when in stand-scoot posture.) Careers Counsellor - Standing Dynamic: BUE (wheelchair; and NWB on LLE.) Loss of Balance- Standing Dynamic: intermittent Bed Mobility Rolling: Modified independent Supine to Sit: Modified independent Sit to Supine: Modified independent Careers Counsellor: bedrails, bed positioning mechanics Transfers Squat Pivot Transfers: Stand by assist, Contact guard assist Careers Counsellor: wheelchair Additional Transfer Trial 2: Yes Squat Pivot Transfers Trial 2: Stand by assist, Contact guard assist Careers Counsellor Trial 2: wheeled walker Gait/Locomotion Wheelchair Mobility: Contact guard assist Wheelchair distance: 150 Feet Wheelchair Environment/Terrain: open/community environment, multiple distractions Home Living Obtained Home Living and PLOF info from: Patient Lives With: Alone Type of Home: House Home Layout: One level Steps to enter home: Yes Rails to enter home: 2 rails Number of stairs to enter home: 2 Bathroom Shower/Tub: Walk-in shower Mobility Equipment: Wheelchair - manual, Wheeled walker, Cane Additional Objective Details - Home Living: Only occasionally uses walker and cane at baseline. Prior Level of Function Level of [place] - Transfers/Ambulation/Mobility: Independent with functional transfers, Independent with household ambulation Level of [place] - ADLs: Independent Subjective Impression - Prior Function: Pt reports he is independent at baseline with or without his prosthesis. He does wheelchair transfers when not using his prosthesis. PHYSICAL THERAPY TREATMENT NOTE Total Treatment Time (Total Session Time): 31 Minutes Total Timed Code Treatment Minutes: 19 Minutes Neuromuscular Reeducation Gait Training Skilled Intervention Provided: tactile cues, patient education For: wheelchair propulsion technique (especially during turns and navigating around obstacles.) Resulting in: improved activity tolerance, improved performance, increased insight into deficits, improved functional independence Therapeutic Activities Bed Mobility Skilled Intervention Provided: verbal cues, tactile cues, facilitation, patient education For: safe use of bedrails and/or equipment, safety during functional tasks Resulting in: improved activity tolerance, improved performance, improved functional independence Transfers Skilled Intervention Provided: verbal cues, monitoring patient response with activity, monitoring patient response with positional changes, patient education For: fall prevention, efficient movement, proper body mechanics Resulting in: improved activity tolerance, improved awareness, decreasing fall risk, improved performance Functional Transfers (Car and/or Toilet Transfers) Therapeutic Exercises Additional Treatment Details Pt's daughter was at bedside throughout therapy session . 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 Procedure: LEFT MIDFOOT AMPUTATION; Surgeon: Flynn Mann DPM; Location: [facility]; Service: Podiatry ANKLE SURGERY Left BYPASS PERONEAL FEMORAL Right 09/07/2018 Procedure: BYPASS PERONEAL FEMORAL, RIGHT SAPHENOUS VEIN HARVEST, COMPLETION ANGIOGRAM; Surgeon: Mohsen Sarabia MD; Location: [facility]; Service: Cardiovascular CARDIAC CATHETERIZATION Left 09/05/2018 Procedure: Angio Lower Extremity; Surgeon: Ben Hahn MD; 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 This note stands as the current Discharge Summary upon patient discharge from the hospital or completion of Physical Therapy Plan. [id number] Note* Sign Off Note - David Christy MD - 01/20/2022 12:38 PM EDT Pulmonary Medicine Sign-Off Medications: Bronchodilators: Recommend initiating Spiriva with PRN Albuterol on dsicharge Home Respiratory Equipment: N/A Follow-up: Imaging: Follow up PET/CT Scan KAJAL in outpatient setting. Please set up at [facility] with Dr Carson Cm or Wagner Moon with referral Pulmonary Function Testing: For diagnosis of COPD Patient with suspicious lung nodule and severe emphysema changes. Also uses Afrin, this should be limited to 2-3 days use at most at a time. Please call with questions David Christy M.D. Internal Medicine PGY-3 Pager: [phone] [address] Work Phone: [phone] Miscellaneous Notes* Sign Off Note - David Christy MD - 01/20/2022 12:38 PM EDT Pulmonary Medicine Sign-Off Medications: Bronchodilators: Recommend initiating Spiriva with PRN Albuterol on dsicharge Home Respiratory Equipment: N/A Follow-up: Imaging: Follow up PET/CT Scan KAJAL in outpatient setting. Please set up at [facility] with Dr Carson Cm or Wagner Moon with referral Pulmonary Function Testing: For diagnosis of COPD Patient with suspicious lung nodule and severe emphysema changes. Also uses Afrin, this should be limited to 2-3 days use at most at a time. Please call with questions David Christy M.D. Internal Medicine PGY-3 Pager: [phone] * ED Procedure Note - Mikey Mcguire MD - 01/18/2022 11:27 PM EDTAssociated Order(s): ECG 12 Lead ECG 12 Lead Date/Time: 01/18/2022 11:27 PM Performed by: Mikey Mcguire MD Authorized by: Mikey Mcguire MD Interpreted by ED attending physician Rhythm: sinus rhythm BPM: 76 Ectopy: PVCs Conduction: conduction normal ST Segments: ST segments normal T Waves: T waves normal Clinical impression: non-specific ECG * ED Attestation Note - Mikey Mcguire MD - 01/18/2022 10:20 PM EDT ED Attestation: I have reviewed the non physician practitioner's documentation, personally taken the patient's history, performed an exam and agree with the physical findings, clinical impression andmanagement plan ADDENDUM TO ATTESTATION An 82-year-old gentleman with previous transmetatarsal amputation by Dr. Mann of Critical Limb. He has had also vascular issues and follows with Dr. Sarabia. He has been having a red streak on his legearlier in the week, was put on antibiotics, seen by Dr. Mann. It became more red over the last 24 hours. Now he is having chills and fever, was advised to come in for IV antibiotics. He has been on oral antibiotics without improvement. On exam, he has marked erythema and tenderness of his ankle and tib-fib area. The stump itself looks fine. There is no soft tissue gas. It is warm. The patient has good popliteal pulse. He will not tolerate me touching his ankle, but it is hot and warm, not cold. X- rays are negative for soft tissue gas or obvious osteomyelitis. He has an elevated CRP. I will go ahead and admit him for IV antibiotics and Critical Limb consultation. documented in this [id number] Consult note* Carson Banks MD - 01/19/2022 2:40 PM EDTAssociated Order(s): IP CONSULT TO PULMONOLOGY Pulmonary and Critical Care Consult Note Impression and Recommendations Tristin Powell is a 82 y.o. male with a past medical history that includes HTN, CAD, PVD. He presented on 01/18/2022 with progressive left ankle pain, redness, swelling not improved with oral antibiotics. Pulmonology consulted to evaluated lung nodule found on chest CT. Lung nodule -Overall relatively low concern for malignancy given imaging findings and lack of significant risk factors -No smoking history. 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 Background emphysema, focal bronchiectasis. Several calcified granulomas. -Solitary lung nodule malignancy risk ([place]) score: 17.6% -Recommend PET as an outpatient and follow up with [facility] closer to home. Possible biopsy iffindings persist. COPD -Patient notes prior diagnosis of COPD -No history of formal PFT's -CT chest 01/19/22: Background emphysema, focal bronchiectasis. Several calcified granulomas. -Recommend PFT's as an outpatient. Recommend bronchodilators, Spiriva. Will also give Afrin, no greater than 2 days duration to avoid rhinitis medicamentosa Acute hypoxemic respiratory failure -Likely component of emphysema contributing to respiratory status -No history of home oxygen -Initially requiring 2L nasal cannula in the ED, but successfully weaned to room air Assessment and plan to be discussed with attending on service, Dr. Mirza. Final plans per attending attestation. DVT Prophylaxis: Ngoc Banks MD Preliminary Medicine PGY1 Pager: [phone] Reason for Consultation: Suspicious Pulm nodule with emphysema and bronchiectasis, difficult location for biopsy History of Presenting Illness: Patient presenting for left ankle cellulitis. Recent left midfoot amputation with tendon lengthening. CT Scan of abdominal aorta noted some abnormality of the lung, follow up CT Chest was obtained that showed a solid 1.6cm left lower lobe pulm nodule with background emphysema, chronic diffuse inflammatory airway, and focal bronchiectasis and volume loss in the RML and chronic linear scarring withseveral calcified granulomas. Patient denies any personal history of smoking but does endorse secondhand smoke exposure. Notes occupational exposure of inhaling wood dust over the years while working in [employer]. Denies recent weight loss. Notes a few episodes of hemoptysis a few weeks ago. Review of Systems: [x] All other systems were reviewed and negative except for those as specified in History of Present illness. [] Unable to obtain history or ROS secondary to clinical circumstances Past Medical, Surgical, Family, and Social History: 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 Procedure: LEFT MIDFOOT AMPUTATION; Surgeon: Flynn Mann DPM; Location: [facility]; Service: Podiatry ANKLE SURGERY Left BYPASS PERONEAL FEMORAL Right 09/07/2018 Procedure: BYPASS PERONEAL FEMORAL, RIGHT SAPHENOUS VEIN HARVEST, COMPLETION ANGIOGRAM; Surgeon: Mohsen Sarabia MD; Location: [facility]; Service: Cardiovascular CARDIAC CATHETERIZATION Left 09/05/2018 Procedure: Angio Lower Extremity; Surgeon: Ben Hahn MD; 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; Service: Cardiovascular CARDIAC SURGERY 2017 triple bypass EGD N/A 10/10/2018 Procedure: ESOPHAGOGASTRODUODENOSCOPY; Surgeon: Ben Jensen MD; Location: [facility]; Service: Gastroenterology EYE SURGERY Right 2015 FOOT SURGERY ORTHOPEDIC SURGERY STENT PLACEMENT Family History Problem Relation Age of Onset Prostate cancer Brother No Known Problems Mother No Known Problems Father Social History Socioeconomic History Marital status: Tobacco Use Smoking status: Never Smokeless tobacco: Never Vaping Use Vaping Use: Never used Substance and Sexual Activity Alcohol use: Not Currently Drug use: Never Sexual activity: Not Currently Allergies and Medications: Allergies: Allergies Allergen Reactions Doxycycline Elevated blood pressure, GI intolerance/ nausea/vomiting Current meds: aspirin 81 mg Oral Daily atorvastatin 40 mg Oral Daily docusate sodium 100 mg Oral BID enoxaparin (LOVENOX) injection 40 mg Subcutaneous Daily gabapentin 100 mg Oral Q8H SADIA losartan 50 mg Oral Daily with lunch metoprolol tartrate 50 mg Oral BID pantoprazole 40 mg Oral Daily rivaroxaban 2.5 mg Oral BID sodium chloride (PF) 5 mL Intravenous Q8H SADIA [START ON 01/20/2022] vancomycin 1,750 mg Intravenous Q36H Data: Laboratory Data: [x] Pertinent lab data reviewed Radiology: [x] Images personally reviewed Microbiology: [x] Pertinent microbiology data reviewed No results for input(s): PHART, JDW6DOG, PO2ART, Y7KHINDN, RESPRATE, TIDALVOL, PEEP, K7HDEEMQ in the last 72 hours. Recent Labs 01/18/22210401/19/22 0336 WBC 6.76 5.34 HGB 14.0 12.4* PLT 150 115* Recent Labs 01/18/22210401/18/22211601/19/22 0336 NA 138 -- 141 K 4.2 -- 4.1 CL 103 -- 108 BICARB BUN 14 14 13 CREATININE 1.10 1.35* 1.08 GLUCOSE 107* -- 90 DENISHA -- 4.7 -- CALCIUM 9.2 -- 8.4 No results for input(s): INR, PTT in the last 72 hours. Physical Exam: Temp: [98.8 F (37.1 C)-100.7 F (38.2 C)] 98.8 F (37.1 C) Heart Rate: [61-79] 71 Resp: [12-22] 16 BP: (115-171)/(47-96) 171/67 No intake or output data in the 24 hours ending 01/19/22 1441 GENERAL: Alert, oriented and in no acute distress. Appears stated age. Daughter at bedside. HEENT: EYES: Pupils equal, round and reactive, extraocular muscles intact. MOUTH: moist and pink with no exudates. NECK: is supple HEART: regular rate and rhythm. No murmurs, rubs or gallops. LUNGS: Clear to auscultation bilaterally. No wheezing, rhonchi or rales. ABDOMEN: Positive bowel sounds, soft, nontender, non-distended. EXTREMITIES: No cyanosis, clubbing or edema in all 4 extremities. Peripheral pulses intact. Left mid-foot amputation noted. NEURO: non-focal, grossly intact. SKIN: grossly free of rash Associated attestation - Ananda Mirza DO - 01/19/2022 5:27 PM EDT The patient was seen and examined with the house staff. I personally reviewed the radiographic images and laboratory data. I agree with the history, physical exam, and assessment and plan with the following comments. Reason for visit/chief complaint: Pulmonary nodule, COPD Mr. Powell is an 82-year-old male with past medical history of hypertension, peripheral vascular disease, CAD who presented with progressive left lower extremity redness, swelling, and pain. Currently being treated for cellulitis with broad-spectrum antibiotics. Incidentally, patient was found to have abnormal lung cuts on CTA of the abdomen/aorta. Dedicated CT chest was then obtained. Patient notes minimal chronic exertional dyspnea. No wheezing. 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 Review of Systems: [x] All other systems were reviewed and negative except for those as specified in History of Present illness. [] Unable to obtain history or ROS secondary to clinical circumstances Assessment/Plan: Pulmonary nodule: Incidentally found 1.2 cm pulmonary nodule noted in the medial aspect of the leftlower lobe as well as several calcified micronodular changes consistent with old granulomatous disease, lower lobe predominant emphysematous changes, and scattered scarlike opacities. Patient is a non-smoker. Nodule appears to be low to intermittent risk for underlying lung malignancy. Appears to be in a very difficult location regarding any biopsy potential in the future, this is not targetable with navigational approach nor any associated lymphadenopathy noted. Also very difficult CT-guided approach given the central position and admixed emphysema. -Recommended outpatient follow-up in the pulmonary medicine clinic close to home with PET CT scan as an outpatient. If lesion is found to be PET avid and given the biopsy limitations as outlined above, possible course would include a EBUS to rule out occult mediastinal disease and possible empiric SBRT to follow. -Patient is okay to follow-up close to home and recommend this to be done at [facility] with either Drs. Carson Gallagher or Wagner Moon. Please place referral to either their clinics at discharge. COPD: Suspected diagnosis with significant emphysematous changes noted on CT likely due to occupational exposures. -Recommend Spiriva and as needed albuterol moving forward as well as follow-up in the pulmonary medicine clinic close to home for formal PFTs. DVT Prophylaxis: Ngoc Mirza DO Pulmonary and Critical Care Medicine 5:26 PM 01/19/22 [id number] Emergency department Note* Violetta Stuart RN - 01/19/2022 2:35 PM EDT Patient provided with warm blanket and coffee. Denies any further needs at this time, visitor at bedside. [id number] Emergency department Note* Violetta Stuart RN - 01/19/2022 2:35 PM EDT Patient provided with warm blanket and coffee. Denies any further needs at this time, visitor at bedside. * Violetta Stuart RN - 01/19/2022 1:15 PM EDT Patient provided with lunch tray. * Maude Vallejo RN - 01/19/2022 10:13 AM EDT patient visited at this time. comfort needs addressed. updated on plan of care. MEAL TRAY DELIVERED AT THIS TIME * Richie Vallecillo - 01/18/2022 11:29 PM EDT Med one to write orders for admission [phone]...checkout complete * Amy Ojeda PA-C - 01/18/2022 11:14 PM EDT Images from the original note were not included. ED PROVIDER NOTE [facility] EMERGENCY DEPARTMENT NAME: Tristin Powell AGE: 82 y.o. : 1940 VISIT DATE: 01/18/2022 CSN: [id number] PCP: Flash Lovelace MD Chief Complaint Patient presents with Leg Swelling Leg Pain Nausea HPI Patient is a 82-year-old male with past medical history of avascular necrosis of hip, claudication,hyperlipidemia, hypertension, prostate cancer, vascular disease who presents today with cellulitis of left leg. Patient has a history of left midfoot amputation in 09/2018. Patient states that proximately 48 hours ago he noticed that there was some erythema of his left foot stump. States that he wasplaced on Keflex. Patient noticed that the swelling and erythema in his left foot has been getting worse. Was seen today by PCP and switched to Bactrim. PCP advised patient to come into the emergencyroom if he had any fever or chills. His family tried to schedule him appointment with his vascular doctor but was only able to get in tomorrow. Patient states that he started feeling chills earlier today. Denies fever. States that the erythema still progressively getting worse and he has significant pain in his left foot/stump area. Denies history of diabetes. Patient also endorses nausea but no vomiting. Denies abdominal pain. 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 Procedure: LEFT MIDFOOT AMPUTATION; Surgeon: Flynn Mann DPM; Location: [facility]; Service: Podiatry ANKLE SURGERY Left BYPASS PERONEAL FEMORAL Right 09/07/2018 Procedure: BYPASS PERONEAL FEMORAL, RIGHT SAPHENOUS VEIN HARVEST, COMPLETION ANGIOGRAM; Surgeon: Mohsen Sarabia MD; Location: [facility]; Service: Cardiovascular CARDIAC CATHETERIZATION Left 09/05/2018 Procedure: Angio Lower Extremity; Surgeon: Ben Hahn MD; 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; Service: Cardiovascular CARDIAC SURGERY 2017 triple bypass EGD N/A 10/10/2018 Procedure: ESOPHAGOGASTRODUODENOSCOPY; Surgeon: Ben Jensen MD; Location: [facility]; Service: Gastroenterology EYE SURGERY Right 2015 FOOT SURGERY ORTHOPEDIC SURGERY STENT PLACEMENT Family History Problem Relation Age of Onset Prostate cancer Brother No Known Problems Mother No Known Problems Father Social History Socioeconomic History Marital status: Tobacco Use Smoking status: Never Smokeless tobacco: Never Vaping Use Vaping Use: Never used Substance and Sexual Activity Alcohol use: Not Currently Drug use: Never Sexual activity: Not Currently Allergies Allergen Reactions Doxycycline Elevated blood pressure, GI intolerance/ nausea/vomiting Review of Systems Constitutional: Positive for chills. Negative for fever. HENT: Negative for congestion. Eyes: Negative for redness. Respiratory: Negative for shortness of breath. Cardiovascular: Negative for chest pain. Gastrointestinal: Positive for nausea. Negative for abdominal pain and vomiting. Genitourinary: Negative for dysuria. Musculoskeletal: Negative for back pain. Positive for left foot pain. Skin: Positive for color change. Neurological: Negative for light-headedness and headaches. Psychiatric/Behavioral: Negative for agitation and confusion. Patient Vitals for the past 24 hrs: BP Temp Temp src Pulse Resp SpO2 Height Weight 01/19/22 0000 (!) 143/57 -- -- 74 18 93 % -- -- 01/18/22 2249 136/69 98.8 F (37.1 C) Oral 69 18 96 % -- -- 01/18/22 2247 -- -- -- -- 16 -- -- -- 01/18/22 2130 (!) 143/74 -- -- 79 18 96 % -- -- 01/18/222100 -- -- -- -- -- 94 % -- -- 01/18/222042 (!) 144/72 (!) 100.7 F (38.2 C) Oral 65 18 90 % 6' 2 113.4 kg (250 lb) Physical Exam Constitutional: General: He is not in acute distress. Appearance: Normal appearance. HENT: Head: Normocephalic and atraumatic. Nose: Nose normal. Mouth/Throat: Pharynx: Oropharynx is clear. Eyes: Extraocular Movements: Extraocular movements intact. Conjunctiva/sclera: Conjunctivae normal. Cardiovascular: Rate and Rhythm: Normal rate and regular rhythm. Pulses: Posterior tibial pulses are 2+ on the right side and 2+ on the left side. Heart sounds: Normal heart sounds. No murmur heard. Pulmonary: Effort: Pulmonary effort is normal. Breath sounds: Normal breath sounds. No wheezing or rhonchi. Abdominal: Palpations: Abdomen is soft. Tenderness: There is no abdominal tenderness. Musculoskeletal: Cervical back: No tenderness. Comments: Patient has left midfoot amputation. Edema of left ankle and left foot. Tenderness to palpation over erythematous area. Skin: General: Skin is warm and dry. Capillary Refill: Capillary refill takes less than 2 seconds. Findings: Erythema present. Comments: Erythema, edema, warmth noted over left and foot with erythema extending up left leg. Please see image below for further detail. Neurological: Mental Status: He is alert and oriented to person, place, and time. Psychiatric: Mood and Affect: Mood normal. Behavior: Behavior normal. Laboratory & Radiographic Imaging (if done): Results for orders placed or performed during the hospital encounter of 01/18/22 Blood Culture Aerobic/Anaerobic Specimen: Blood, Peripheral Result Value Ref Range Culture In Progress; No Growth to Date Blood Culture Aerobic/Anaerobic Specimen: Blood, Peripheral Result Value Ref Range Culture In Progress; No Growth to Date BMP Result Value Ref Range Sodium 138 135 - 145 mmol/L Potassium 4.2 3.5 - 5.1 mmol/L Chloride 103 98 - 108 mmol/L Bicarbonate 26 21 - 32 mmol/L Anion Gap 13 10 - 20 mmol/L Glucose 107 (H) 65 - 99 mg/dL BUN 14 8 - 25 mg/dL Creatinine 1.10 0.80 - 1.30 mg/dL eGFR 62 >=60 mL/min/1.73 m2 BUN/Creatinine Ratio 12.7 10.0 - 20.0 Calcium 9.2 8.4 - 10.2 mg/dL Sedimentation Rate Result Value Ref Range Sed Rate 18 0 - 20 mm/hr CRP, Inflammation Result Value Ref Range CRP(Inflammation) 63.5 (H) 0.0 - 10.0 mg/L Gold Top Result Value Ref Range Extra Tube Hold for add-ons. Light Blue Top Result Value Ref Range Extra Tube Hold for add-ons. Friedman Top Result Value Ref Range Extra Tube Hold for add-ons. POC Venous Blood Gases with Full Panel Result Value Ref Range pH, Venous 7.40 7.32 - 7.42 pCO2, Jake 41.3 41.0 - 51.0 mm Hg pO2, Jake 51 (H) 25 - 40 mm Hg Base Excess, Jake 0.2 -2.0 - 2.0 O2 Sat, Jake 85.2 (H) 40.0 - 70.0 % Hemoglobin, Calculated 14.4 13.5 - 17.5 g/dL Hematocrit 42 41 - 53 % Glucose 98 65 - 99 mg/dL BUN 14 8 - 25 mg/dL Creatinine 1.35 (H) 0.80 - 1.30 mg/dL GFR 48 (L) >=60 mL/min/1.73 m2 Sodium 141 135 - 145 mmol/L Potassium 4.0 3.5 - 5.1 mmol/L Chloride 104 98 - 108 mmol/L TCO2 25 21 - 32 mmol/L Lactate 1.0 0.6 - 2.0 mmol/L Ionized Calcium 4.7 4.5 - 5.3 mg/dL CBC Auto Differential Result Value Ref Range WBC 6.76 4.50 - 11.00 K/mcL RBC 4.21 (L) 4.50 - 5.90 M/mcL Hemoglobin 14.0 13.5 - 17.5 g/dL Hematocrit 39.2 (L) 41.0 - 53.0 % MCV 93.1 80.0 - 100.0 fL MCH 33.3 26.0 - 34.0 pg MCHC 35.7 31.0 - 37.0 g/dL Platelets 150 150 - 400 K/mcL RDW - CV 15.3 (H) 11.6 - 14.8 % MPV 10.4 9.4 - 12.4 fL Neutrophils 74.7 % Lymphocytes 11.1 % Monocytes 11.5 % Eosinophils 2.1 % Basophils 0.3 % IG Percent 0.30 % Neutrophils Abs 5.05 1.70 - 7.00 K/mcL Lymphocytes Abs 0.75 (L) 0.90 - 4.00 K/mcL Monocytes Abs 0.78 0.30 - 0.90 K/mcL Eosinophils Abs 0.14 0.00 - 0.50 K/mcL Basophils Abs 0.02 0.00 - 0.30 K/mcL IG Absolute 0.02 0.00 - 0.30 K/mcL Nucleated RBC 0.0 % Nucleated RBC Abs 0.00 0.00 - 0.00 K/mcL XR Ankle Left 3+ Views (Standard) Final Result FINDINGS/ Distal fibula ORIF. 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 No acute periosteal reaction. Severe tibiotalar osteoarthritis. Diffuse soft tissue edema about the remainder of the foot. No soft tissue gas. Vascular atherosclerotic soft tissue calcifications. Workstation ID: [id number] XR Tibia Fibula Left 2 Views Final Result FINDINGS/ Distal fibular ORIF without evidence of hardware complication. No acute fracture identified. Tricompartmental osteophytes at the knee. No periosteal reaction. Moderate to severe tibiotalar osteoarthritis. Probable vascular stent in the popliteal fossa with several surrounding surgical clips. No soft tissue gas or obvious large fluid collection. 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 Patient was given outpatient management after being on Keflex and Bactrim with worsening of cellulitis. Patient has erythema, swelling, warmth without purulent drainage to left ankle/stump. Please see physical exam with image for further detail. Patient states that he came in today because he started having chills. Temperature of 100.7 F on arrival. Sed rate 18. CRP elevated at 63.5. CBC relatively unremarkable. No leukocytosis. BMP relatively unremarkable. VBG relatively unremarkable. Blood culture obtained. Patient started on IV vancomycin andRocephin due to unsure if patient has osteomyelitis. X-ray of left tibia fibula showed distal fibula ORIF without acute fracture. Unable to examine area of cellulitis with this x-ray. X-ray of the left ankle was then ordered. Left ankle x-ray showed distal fibula ORIF and status post amputation through the level of the midfoot with no acute periosteal reaction. Severe tibiotalar osteoarthritis with diffuse soft tissue edema of the remainder of the foot without soft tissue gas. Patient also given IV fluids and pain and nausea medication. Plan for patient is admission for further treatment of cellulitis. I discussed this patient with my attending physician who agrees with the plan. . Clinical Impression: 1. Left leg cellulitis 2. 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 Elevated C-reactive protein (CRP) ED Disposition ED Disposition Hospitalize Condition -- Comment Reason for inpatient over two midnights: workup Follow-up Information Follow-up information has not been specified. Contact information for after-discharge care Follow-up information has not been specified. Discontinued Medications Disp Refills Start End doxycycline hyclate (VIBRAMYCIN) 100 MG capsule 01/17/2022 01/19/2022 Class: Historical Med aspirin 81 MG EC tablet 01/19/2022 Class: Historical Med Amy Ojeda PA-C 01/19/22 0028 * Gregory Alvarado LPN - 01/18/2022 8:37 PM EDT Pt arrives to the ED with c/o redness and swelling to left amputated foot. Redness and swelling noted a couple days ago. Pt states he's nauseous, chills documented in this [id number] Emergency department Note* Violetta Stuart RN - 01/19/2022 1:15 PM EDT Patient provided with lunch tray. [id number] Emergency department Note* Maude Vallejo RN - 01/19/2022 10:13 AM EDT patient visited at this time. comfort needs addressed. updated on plan of care. MEAL TRAY DELIVERED AT THIS TIME [id number] History and physical note* Rodri Back, - 01/18/2022 11:54 PM EDT Images from the original note were not included. [facility] History and Physical Note 01/19/22 Tristin Powell 1940 [id number] Assessment/Plan: Tristin Powell is a 82 y.o. male with a history of HTN, CAD, PVD who presented to [facility] 01/18/2022 with progressive left ankle pain, redness, swelling not improved with oral antibiotics. Admit XR non-acute, temp 100.7, CRP 63.5, WBC 6.76, ESR 18. LLE Cellulitis: Per chart, hx MRSA in 2018. Presented progressive severe left ankle pain, edema, warmth, tenderness x 3 days CMO & PRESIDENT not improved with keflex/bactrim. Admit temp 100.7. Admit blood cultures pending. Continued ceftriaxone/vancomycin on admit. Pain control. Admit CTA/runoff pending to asse ss for deeper infection and vasculature given hx PVD. Consider vascular/podiatry consult pending results. Bilateral PAD: Per history. LLE angio w/ balloon/stent 08/09/18. 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 Left femoral to peroneal bypass 09/07/18 (Dr. Sarabia, vascular surgery). 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 Mann, podiatry). Right YAMILE 0.March. Continued aspirin and Xarelto 2.5mg BID. Dr. Sarabia ordered outpatient YAMILE and bypass graft duplex prior to admit. CTA/lower extremity runoff ordered on admit. Acute Hypoxemic Respiratory Failure: No home O2. Placed on O2 in the ER. SpO2 99% on 2L NC. Weaned to room air in the ER with SpO2 96% on room air. HTN: Per history. Continued home losartan, BB. Adjust PRN. CAD: Per history, remote heart stents and CABG x 3 in 2017. TTE Sep 2018: LV EF 55-60%, reduced right ventricular function, LV hypertrophy, diastolic LV dysfunction. No clear history of acute CHF. Continued aspirin, statin, BB, xarelto. Carotid Stenosis: Duplex March 2021 shoed 50-69% stenosis in bilateral carotid arteries, unchangedsince prior. Continued aspirin, xarelto, statin on admit. Code status: Full, discussed with patient on admit DVT Prophylaxis: Lovenox (home xarelto is at PVD/CAD dose) The following Vizient risk variables were noted and present on admission: Acute Respiratory Failure Please see assessment and plan for further details. Current living situation: Home Expected Disposition: TBD Estimated discharge date: TBD Chief Complaint: Progressive left ankle pain, redness, swelling not improved with oral antibiotics History of Present Illness: Tristin Powell is a 82 y.o. male with a history of HTN, CAD, PVD who presented to [facility] 01/18/2022 with progressive left ankle pain, redness, swelling not improved with oral antibiotics. Admit XR non-acute, temp 100.7, CRP 63.5, WBC 6.76, ESR 18. Patient states that he was in his usual state of health on Monday. Over the weekend, he was sittingin his armchair and when he got up, he noticed notable pain in his left foot and ankle. This pain quickly progressed with new redness, warmth over the weekend. He states that he was given antibioticsstarting a few days ago, but was unable to tell me the exact doses, name, or when this was started.At some point, he thinks that he was switched on antibiotic. Patient had some intermittent chills but no fevers. He has not noticed any draining of the wound. Today, he went to his PCPs office who recommended him to go on the hospital for IV antibiotics. Patient also states that his daughter had called Dr. Sarabia's office and an appointment was made for tomorrow. Per the chart review, it appears that some vascular imaging studies were ordered for the outpatient setting. Patient denies any other significant symptoms. No chest pain, shortness breath, lightheadedness. Nofevers or sweats. No abdominal pain, nausea, vomiting, diarrhea, constipation. No issues with the right leg. No notable numbness or tingling in the left lower extremity on the left foot at the stump area. ROS: 10 systems were reviewed and negative, except as noted above. Past Medical, Surgical, Social, Family History: 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 Procedure: LEFT MIDFOOT AMPUTATION; Surgeon: Flynn Mann DPM; Location: [facility]; Service: Podiatry ANKLE SURGERY Left BYPASS PERONEAL FEMORAL Right 09/07/2018 Procedure: BYPASS PERONEAL FEMORAL, RIGHT SAPHENOUS VEIN HARVEST, COMPLETION ANGIOGRAM; Surgeon: Mohsen Sarabia MD; Location: [facility] OR; Service: Cardiovascular CARDIAC CATHETERIZATION Left 09/05/2018 Procedure: Angio Lower Extremity; Surgeon: Ben Hahn MD; 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; Service: Cardiovascular CARDIAC SURGERY 2017 triple bypass EGD N/A 10/10/2018 Procedure: ESOPHAGOGASTRODUODENOSCOPY; Surgeon: Ben Jensen MD; Location: [facility]; Service: Gastroenterology EYE SURGERY Right 2015 FOOT SURGERY ORTHOPEDIC SURGERY STENT PLACEMENT Social History Socioeconomic History Marital status: Tobacco Use Smoking status: Never Smokeless tobacco: Never Vaping Use Vaping Use: Never used Substance and Sexual Activity Alcohol use: Not Currently Drug use: Never Sexual activity: Not Currently Family History Problem Relation Age of Onset Prostate cancer Brother No Known Problems Mother No Known Problems Father Home Medications: Outpatient Medications as of 01/18/2022 Medication Sig acetaminophen (TYLENOL) 325 MG tablet Take 650 mg by mouth every 4 (four) hours as needed . ammonium lactate (LAC-HYDRIN) 12 % lotion Apply topically 2 (two) times a day . aspirin 81 mg cap Take 81 mg by mouth daily . atorvastatin (LIPITOR) 40 MG tablet Take 40 mg by mouth daily . celecoxib (CELEBREX) 200 MG capsule Take 200 mg by mouth 2 (two) times a day . cephALEXin (KEFLEX) 500 MG capsule Take 500 mg by mouth 3 (three) times a day . fluticasone (FLONASE) 50 mcg/actuation nasal spray 2 (two) sprays by Each Nare route daily . gabapentin (NEURONTIN) 100 MG capsule Take 100 mg by mouth every 8 (eight) hours . losartan (COZAAR) 50 MG tablet Take 1 tablet by mouth daily . metoprolol tartrate (LOPRESSOR) 50 MG tablet Take 50 mg by mouth 2 (two) times a day . omeprazole (PRILOSEC) 20 MG capsule Take 20 mg by mouth daily . oxyCODONE-acetaminophen (PERCOCET) 5-325 mg per tablet Take 1 tablet by mouth every 6 (six) hours as needed for pain . polyethylene glycol (MIRALAX) 17 gram powder Take 17 g by mouth . rivaroxaban (XARELTO) 2.5 mg tablet Take 1 tablet by mouth 2 (two) times a day . sulfamethoxazole-trimethoprim (BACTRIM DS,SEPTRA DS) 800-160 mg per tablet Take 1 tablet by mouth 2(two) times a day . zolpidem (AMBIEN) 10 mg tablet Take 10 mg by mouth nightly . docusate sodium (COLACE) 100 MG capsule Take 100 mg by mouth 2 (two) times a day . nitroGLYCERIN (NITROSTAT) 0.[address] under the tongue every 4 to 6 hours as needed . Physical Exam: BP (!) 143/57 (BP Location: Right arm, Patient Position: Lying) Pulse 74 Temp 98.8 F (37.1 C) (Oral) Resp 18 Ht 6' 2 Wt 113.4 kg (250 lb) SpO2 93% BMI 32.10 kg/m General: NAD Eyes: EOMI HENT: Normocephalic Cardiovascular: Normal rate, regular rhythm Respiratory: Clear to auscultation bilaterally. Non-labored Gastrointestinal: Soft, non tender. Genitourinary: no suprapubic tenderness. Musculoskeletal: Severe tenderness to palpation, mild warmth, and notable erythema in the left footand ankle as noted in the photo below. Difficult to assess for pulses those the entire foot is warmto the touch and no evidence of cyanosis or mottling. Skin: Warm, dry, and intact. Neuro: Awake, alert. CN II-XII grossly intact. All extremities moving spontaneously. Sensation to light touch intact bilateral upper/lower extremities. No facial asymmetry. Psych: Appropriate affect and behavior. Labs, Imaging, and Studies reviewed: Results from last 7 days Lab Units 01/18/22211601/18/222104 WBC K/mcL -- 6.76 HGB g/dL -- 14.0 HCT % -- 39.2* HEMATOCRITPOC % 42 -- PLT K/mcL -- 150 Results from last 7 days Lab Units 01/18/22211601/18/222104 SODIUM mmol/L -- 138 POTASSIUM mmol/L -- 4.2 CHLORIDE mmol/L -- 103 BICARB mmol/L -- 26 BUN mg/dL -- 14 POC BUN mg/dL 14 -- CREATININE mg/dL -- 1.10 POC CREATININE (EPOC) mg/dL 1.35* -- EGFR mL/min/1.73 m2 -- 62 GLUCOSE mg/dL -- 107* CALCIUM mg/dL -- 9.2 [id number] History and physical note* Rodri Back DO - 01/18/2022 11:54 PM EDT Images from the original note were not included. [facility] History and Physical Note 01/19/22 Tristin Powell 1940 [id number] Assessment/Plan: Tristin Powell is a 82 y.o. male with a history of HTN, CAD, PVD who presented to [facility] 01/18/2022 with progressive left ankle pain, redness, swelling not improved with oral antibiotics. Admit XR non-acute, temp 100.7, CRP 63.5, WBC 6.76, ESR 18. LLE Cellulitis: Per chart, hx MRSA in 2019. Presented progressive severe left ankle pain, edema, warmth, tenderness x 3 days CMO & PRESIDENT not improved with keflex/bactrim. Admit temp 100.7. Admit blood cultures pending. Continued ceftriaxone/vancomycin on admit. Pain control. Admit CTA/runoff pending to asse ss for deeper infection and vasculature given hx PVD. Consider vascular/podiatry consult pending results. Bilateral PAD: Per history. LLE angio w/ balloon/stent 08/09/18. 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 Left femoral to peroneal bypass 09/07/18 (Dr. Sarabia, vascular surgery). 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 Mann, podiatry). Right YAMILE 0.March. Continued aspirin and Xarelto 2.5mg BID. Dr. Sarabia ordered outpatient YAMILE and bypass graft duplex prior to admit. CTA/lower extremity runoff ordered on admit. Acute Hypoxemic Respiratory Failure: No home O2. Placed on O2 in the ER. SpO2 99% on 2L NC. Weaned to room air in the ER with SpO2 96% on room air. HTN: Per history. Continued home losartan, BB. Adjust PRN. CAD: Per history, remote heart stents and CABG x 3 in 2016. TTE Sep 2018: LV EF 55-60%, reduced right ventricular function, LV hypertrophy, diastolic LV dysfunction. No clear history of acute CHF. Continued aspirin, statin, BB, xarelto. Carotid Stenosis: Duplex March 2021 shoed 50-69% stenosis in bilateral carotid arteries, unchangedsince prior. Continued aspirin, xarelto, statin on admit. Code status: Full, discussed with patient on admit DVT Prophylaxis: Lovenox (home xarelto is at PVD/CAD dose) The following Vizient risk variables were noted and present on admission: Acute Respiratory Failure Please see assessment and plan for further details. Current living situation: Home Expected Disposition: TBD Estimated discharge date: TBD Chief Complaint: Progressive left ankle pain, redness, swelling not improved with oral antibiotics History of Present Illness: Tristin Powell is a 82 y.o. male with a history of HTN, CAD, PVD who presented to [facility] 01/18/2022 with progressive left ankle pain, redness, swelling not improved with oral antibiotics. Admit XR non-acute, temp 100.7, CRP 63.5, WBC 6.76, ESR 18. Patient states that he was in his usual state of health on Monday. Over the weekend, he was sittingin his armchair and when he got up, he noticed notable pain in his left foot and ankle. This pain quickly progressed with new redness, warmth over the weekend. He states that he was given antibioticsstarting a few days ago, but was unable to tell me the exact doses, name, or when this was started.At some point, he thinks that he was switched on antibiotic. Patient had some intermittent chills but no fevers. He has not noticed any draining of the wound. Today, he went to his PCPs office who recommended him to go on the hospital for IV antibiotics. Patient also states that his daughter had called Dr. Sarabia's office and an appointment was made for tomorrow. Per the chart review, it appears that some vascular imaging studies were ordered for the outpatient setting. Patient denies any other significant symptoms. No chest pain, shortness breath, lightheadedness. Nofevers or sweats. No abdominal pain, nausea, vomiting, diarrhea, constipation. No issues with the right leg. No notable numbness or tingling in the left lower extremity on the left foot at the stump area. ROS: 10 systems were reviewed and negative, except as noted above. Past Medical, Surgical, Social, Family History: 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 Procedure: LEFT MIDFOOT AMPUTATION; Surgeon: Flynn Mann DPM; Location: [facility]; Service: Podiatry ANKLE SURGERY Left BYPASS PERONEAL FEMORAL Right 09/07/2018 Procedure: BYPASS PERONEAL FEMORAL, RIGHT SAPHENOUS VEIN HARVEST, COMPLETION ANGIOGRAM; Surgeon: Mohsen Sarabia MD; Location: [facility]; Service: Cardiovascular CARDIAC CATHETERIZATION Left 09/05/2018 Procedure: Angio Lower Extremity; Surgeon: Ben Hahn MD; 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; Service: Cardiovascular CARDIAC SURGERY 2017 triple bypass EGD N/A 10/10/2018 Procedure: ESOPHAGOGASTRODUODENOSCOPY; Surgeon: Ben Jensen MD; Location: [facility]; Service: Gastroenterology EYE SURGERY Right 2015 FOOT SURGERY ORTHOPEDIC SURGERY STENT PLACEMENT Social History Socioeconomic History Marital status: Tobacco Use Smoking status: Never Smokeless tobacco: Never Vaping Use Vaping Use: Never used Substance and Sexual Activity Alcohol use: Not Currently Drug use: Never Sexual activity: Not Currently Family History Problem Relation Age of Onset Prostate cancer Brother No Known Problems Mother No Known Problems Father Home Medications: Outpatient Medications as of 01/18/2022 Medication Sig acetaminophen (TYLENOL) 325 MG tablet Take 650 mg by mouth every 4 (four) hours as needed . ammonium lactate (LAC-HYDRIN) 12 % lotion Apply topically 2 (two) times a day . aspirin 81 mg cap Take 81 mg by mouth daily . atorvastatin (LIPITOR) 40 MG tablet Take 40 mg by mouth daily . celecoxib (CELEBREX) 200 MG capsule Take 200 mg by mouth 2 (two) times a day . cephALEXin (KEFLEX) 500 MG capsule Take 500 mg by mouth 3 (three) times a day . fluticasone (FLONASE) 50 mcg/actuation nasal spray 2 (two) sprays by Each Nare route daily . gabapentin (NEURONTIN) 100 MG capsule Take 100 mg by mouth every 8 (eight) hours . losartan (COZAAR) 50 MG tablet Take 1 tablet by mouth daily . metoprolol tartrate (LOPRESSOR) 50 MG tablet Take 50 mg by mouth 2 (two) times a day . omeprazole (PRILOSEC) 20 MG capsule Take 20 mg by mouth daily . oxyCODONE-acetaminophen (PERCOCET) 5-325 mg per tablet Take 1 tablet by mouth every 6 (six) hours as needed for pain . polyethylene glycol (MIRALAX) 17 gram powder Take 17 g by mouth . rivaroxaban (XARELTO) 2.5 mg tablet Take 1 tablet by mouth 2 (two) times a day . sulfamethoxazole-trimethoprim (BACTRIM DS,SEPTRA DS) 800-160 mg per tablet Take 1 tablet by mouth 2(two) times a day . zolpidem (AMBIEN) 10 mg tablet Take 10 mg by mouth nightly . docusate sodium (COLACE) 100 MG capsule Take 100 mg by mouth 2 (two) times a day . nitroGLYCERIN (NITROSTAT) 0.[address] under the tongue every 4 to 6 hours as needed . Physical Exam: BP (!) 143/57 (BP Location: Right arm, Patient Position: Lying) Pulse 74 Temp 98.8 F (37.1 C) (Oral) Resp 18 Ht 6' 2 Wt 113.4 kg (250 lb) SpO2 93% BMI 32.10 kg/m General: NAD Eyes: EOMI HENT: Normocephalic Cardiovascular: Normal rate, regular rhythm Respiratory: Clear to auscultation bilaterally. Non-labored Gastrointestinal: Soft, non tender. Genitourinary: no suprapubic tenderness. Musculoskeletal: Severe tenderness to palpation, mild warmth, and notable erythema in the left footand ankle as noted in the photo below. Difficult to assess for pulses those the entire foot is warmto the touch and no evidence of cyanosis or mottling. Skin: Warm, dry, and intact. Neuro: Awake, alert. CN II-XII grossly intact. All extremities moving spontaneously. Sensation to light touch intact bilateral upper/lower extremities. No facial asymmetry. Psych: Appropriate affect and behavior. Labs, Imaging, and Studies reviewed: Results from last 7 days Lab Units 01/18/22211601/18/222104 WBC K/mcL -- 6.76 HGB g/dL -- 14.0 HCT % -- 39.2* HEMATOCRITPOC % 42 -- PLT K/mcL -- 150 Results from last 7 days Lab Units 01/18/22211601/18/222104 SODIUM mmol/L -- 138 POTASSIUM mmol/L -- 4.2 CHLORIDE mmol/L -- 103 BICARB mmol/L -- 26 BUN mg/dL -- 14 POC BUN mg/dL 14 -- CREATININE mg/dL -- 1.10 POC CREATININE (EPOC) mg/dL 1.35* -- EGFR mL/min/1.73 m2 -- 62 GLUCOSE mg/dL -- 107* CALCIUM mg/dL -- 9.2 documented in this [id number] Emergency department Note* Richie Vallecillo - 01/18/2022 11:29 PM EDT Med one to write orders for admission [phone]...checkout complete [id number] Note* ED Procedure Note - Mikey Mcguire MD - 01/18/2022 11:27 PM EDTAssociated Order(s): ECG 12 Lead ECG 12 Lead Date/Time: 01/18/2022 11:27 PM Performed by: Mikey Mcguire MD Authorized by: Mikey Mcguire MD Interpreted by ED attending physician Rhythm: sinus rhythm BPM: 76 Ectopy: PVCs Conduction: conduction normal ST Segments: ST segments normal T Waves: T waves normal Clinical impression: non-specific ECG [employer] Work Phone: [phone] Physician Emergency department Note* Amy Ojeda PA-C - 01/18/2022 11:14 PM EDT Images from the original note were not included. ED PROVIDER NOTE [facility] EMERGENCY DEPARTMENT NAME: Tristin Powell AGE: 82 y.o. : 1940 VISIT DATE: 01/18/2022 CSN: [id number] PCP: Flash Lovelace MD Chief Complaint Patient presents with Leg Swelling Leg Pain Nausea HPI Patient is a 82-year-old male with past medical history of avascular necrosis of hip, claudication,hyperlipidemia, hypertension, prostate cancer, vascular disease who presents today with cellulitis of left leg. Patient has a history of left midfoot amputation in 09/2018. Patient states that proximately 48 hours ago he noticed that there was some erythema of his left foot stump. States that he wasplaced on Keflex. Patient noticed that the swelling and erythema in his left foot has been getting worse. Was seen today by PCP and switched to Bactrim. PCP advised patient to come into the emergencyroom if he had any fever or chills. His family tried to schedule him appointment with his vascular doctor but was only able to get in tomorrow. Patient states that he started feeling chills earlier today. Denies fever. States that the erythema still progressively getting worse and he has significant pain in his left foot/stump area. Denies history of diabetes. Patient also endorses nausea but no vomiting. Denies abdominal pain. 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 Procedure: LEFT MIDFOOT AMPUTATION; Surgeon: Flynn Mann DPM; Location: [facility]; Service: Podiatry ANKLE SURGERY Left BYPASS PERONEAL FEMORAL Right 09/07/2018 Procedure: BYPASS PERONEAL FEMORAL, RIGHT SAPHENOUS VEIN HARVEST, COMPLETION ANGIOGRAM; Surgeon: Mohsen Sarabia MD; Location: [facility] NEURO OR; Service: Cardiovascular CARDIAC CATHETERIZATION Left 09/05/2018 Procedure: Angio Lower Extremity; Surgeon: Ben Hahn MD; 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; Service: Cardiovascular CARDIAC SURGERY 2017 triple bypass EGD N/A 10/10/2018 Procedure: ESOPHAGOGASTRODUODENOSCOPY; Surgeon: Ben Jensen MD; Location: [facility]; Service: Gastroenterology EYE SURGERY Right 2015 FOOT SURGERY ORTHOPEDIC SURGERY STENT PLACEMENT Family History Problem Relation Age of Onset Prostate cancer Brother No Known Problems Mother No Known Problems Father Social History Socioeconomic History Marital status: Tobacco Use Smoking status: Never Smokeless tobacco: Never Vaping Use Vaping Use: Never used Substance and Sexual Activity Alcohol use: Not Currently Drug use: Never Sexual activity: Not Currently Allergies Allergen Reactions Doxycycline Elevated blood pressure, GI intolerance/ nausea/vomiting Review of Systems Constitutional: Positive for chills. Negative for fever. HENT: Negative for congestion. Eyes: Negative for redness. Respiratory: Negative for shortness of breath. Cardiovascular: Negative for chest pain. Gastrointestinal: Positive for nausea. Negative for abdominal pain and vomiting. Genitourinary: Negative for dysuria. Musculoskeletal: Negative for back pain. Positive for left foot pain. Skin: Positive for color change. Neurological: Negative for light-headedness and headaches. Psychiatric/Behavioral: Negative for agitation and confusion. Patient Vitals for the past 24 hrs: BP Temp Temp src Pulse Resp SpO2 Height Weight 01/19/22 0000 (!) 143/57 -- -- 74 18 93 % -- -- 01/18/222248 136/69 98.8 F (37.1 C) Oral 69 18 96 % -- -- 01/18/22 2247 -- -- -- -- 16 -- -- -- 01/18/22 2130 (!) 143/74 -- -- 79 18 96 % -- -- 01/18/22 2101 -- -- -- -- -- 94 % -- -- 01/18/222042 (!) 144/72 (!) 100.7 F (38.2 C) Oral 65 18 90 % 6' 2 113.4 kg (250 lb) Physical Exam Constitutional: General: He is not in acute distress. Appearance: Normal appearance. HENT: Head: Normocephalic and atraumatic. Nose: Nose normal. Mouth/Throat: Pharynx: Oropharynx is clear. Eyes: Extraocular Movements: Extraocular movements intact. Conjunctiva/sclera: Conjunctivae normal. Cardiovascular: Rate and Rhythm: Normal rate and regular rhythm. Pulses: Posterior tibial pulses are 2+ on the right side and 2+ on the left side. Heart sounds: Normal heart sounds. No murmur heard. Pulmonary: Effort: Pulmonary effort is normal. Breath sounds: Normal breath sounds. No wheezing or rhonchi. Abdominal: Palpations: Abdomen is soft. Tenderness: There is no abdominal tenderness. Musculoskeletal: Cervical back: No tenderness. Comments: Patient has left midfoot amputation. Edema of left ankle and left foot. Tenderness to palpation over erythematous area. Skin: General: Skin is warm and dry. Capillary Refill: Capillary refill takes less than 2 seconds. Findings: Erythema present. Comments: Erythema, edema, warmth noted over left and foot with erythema extending up left leg. Please see image below for further detail. Neurological: Mental Status: He is alert and oriented to person, place, and time. Psychiatric: Mood and Affect: Mood normal. Behavior: Behavior normal. Laboratory & Radiographic Imaging (if done): Results for orders placed or performed during the hospital encounter of 01/18/22 Blood Culture Aerobic/Anaerobic Specimen: Blood, Peripheral Result Value Ref Range Culture In Progress; No Growth to Date Blood Culture Aerobic/Anaerobic Specimen: Blood, Peripheral Result Value Ref Range Culture In Progress; No Growth to Date BMP Result Value Ref Range Sodium 138 135 - 145 mmol/L Potassium 4.2 3.5 - 5.1 mmol/L Chloride 103 98 - 108 mmol/L Bicarbonate 26 21 - 32 mmol/L Anion Gap 13 10 - 20 mmol/L Glucose 107 (H) 65 - 99 mg/dL BUN 14 8 - 25 mg/dL Creatinine 1.10 0.80 - 1.30 mg/dL eGFR 62 >=60 mL/min/1.73 m2 BUN/Creatinine Ratio 12.7 10.0 - 20.0 Calcium 9.2 8.4 - 10.2 mg/dL Sedimentation Rate Result Value Ref Range Sed Rate 18 0 - 20 mm/hr CRP, Inflammation Result Value Ref Range CRP(Inflammation) 63.5 (H) 0.0 - 10.0 mg/L Gold Top Result Value Ref Range Extra Tube Hold for add-ons. Light Blue Top Result Value Ref Range Extra Tube Hold for add-ons. Friedman Top Result Value Ref Range Extra Tube Hold for add-ons. POC Venous Blood Gases with Full Panel Result Value Ref Range pH, Venous 7.40 7.32 - 7.42 pCO2, Jake 41.3 41.0 - 51.0 mm Hg pO2, Jake 51 (H) 25 - 40 mm Hg Base Excess, Jake 0.2 -2.0 - 2.0 O2 Sat, Jake 85.2 (H) 40.0 - 70.0 % Hemoglobin, Calculated 14.4 13.5 - 17.5 g/dL Hematocrit 42 41 - 53 % Glucose 98 65 - 99 mg/dL BUN 14 8 - 25 mg/dL Creatinine 1.35 (H) 0.80 - 1.30 mg/dL GFR 48 (L) >=60 mL/min/1.73 m2 Sodium 141 135 - 145 mmol/L Potassium 4.0 3.5 - 5.1 mmol/L Chloride 104 98 - 108 mmol/L TCO2 25 21 - 32 mmol/L Lactate 1.0 0.6 - 2.0 mmol/L Ionized Calcium 4.7 4.5 - 5.3 mg/dL CBC Auto Differential Result Value Ref Range WBC 6.76 4.50 - 11.00 K/mcL RBC 4.21 (L) 4.50 - 5.90 M/mcL Hemoglobin 14.0 13.5 - 17.5 g/dL Hematocrit 39.2 (L) 41.0 - 53.0 % MCV 93.1 80.0 - 100.0 fL MCH 33.3 26.0 - 34.0 pg MCHC 35.7 31.0 - 37.0 g/dL Platelets 150 150 - 400 K/mcL RDW - CV 15.3 (H) 11.6 - 14.8 % MPV 10.4 9.4 - 12.4 fL Neutrophils 74.7 % Lymphocytes 11.1 % Monocytes 11.5 % Eosinophils 2.1 % Basophils 0.3 % IG Percent 0.30 % Neutrophils Abs 5.05 1.70 - 7.00 K/mcL Lymphocytes Abs 0.75 (L) 0.90 - 4.00 K/mcL Monocytes Abs 0.78 0.30 - 0.90 K/mcL Eosinophils Abs 0.14 0.00 - 0.50 K/mcL Basophils Abs 0.02 0.00 - 0.30 K/mcL IG Absolute 0.02 0.00 - 0.30 K/mcL Nucleated RBC 0.0 % Nucleated RBC Abs 0.00 0.00 - 0.00 K/mcL XR Ankle Left 3+ Views (Standard) Final Result FINDINGS/ Distal fibula ORIF. 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 No acute periosteal reaction. Severe tibiotalar osteoarthritis. Diffuse soft tissue edema about the remainder of the foot. No soft tissue gas. Vascular atherosclerotic soft tissue calcifications. Workstation ID: [id number] XR Tibia Fibula Left 2 Views Final Result FINDINGS/ Distal fibular ORIF without evidence of hardware complication. No acute fracture identified. Tricompartmental osteophytes at the knee. No periosteal reaction. Moderate to severe tibiotalar osteoarthritis. Probable vascular stent in the popliteal fossa with several surrounding surgical clips. No soft tissue gas or obvious large fluid collection. 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 Patient was given outpatient management after being on Keflex and Bactrim with worsening of cellulitis. Patient has erythema, swelling, warmth without purulent drainage to left ankle/stump. Please see physical exam with image for further detail. Patient states that he came in today because he started having chills. Temperature of 100.7 F on arrival. Sed rate 18. CRP elevated at 63.5. CBC relatively unremarkable. No leukocytosis. BMP relatively unremarkable. VBG relatively unremarkable. Blood culture obtained. Patient started on IV vancomycin andRocephin due to unsure if patient has osteomyelitis. X-ray of left tibia fibula showed distal fibula ORIF without acute fracture. Unable to examine area of cellulitis with this x-ray. X-ray of the left ankle was then ordered. Left ankle x-ray showed distal fibula ORIF and status post amputation through the level of the midfoot with no acute periosteal reaction. Severe tibiotalar osteoarthritis with diffuse soft tissue edema of the remainder of the foot without soft tissue gas. Patient also given IV fluids and pain and nausea medication. Plan for patient is admission for further treatment of cellulitis. I discussed this patient with my attending physician who agrees with the plan. . Clinical Impression: 1. Left leg cellulitis 2. 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 Elevated C-reactive protein (CRP) ED Disposition ED Disposition Hospitalize Condition -- Comment Reason for inpatient over two midnights: workup Follow-up Information Follow-up information has not been specified. Contact information for after-discharge care Follow-up information has not been specified. Discontinued Medications Disp Refills Start End doxycycline hyclate (VIBRAMYCIN) 100 MG capsule 01/17/2022 01/19/2022 Class: Historical Med aspirin 81 MG EC tablet 01/19/2022 Class: Historical Med Amy Ojeda PA-C 01/19/22 0028 [employer] Work Phone: [phone] Note* ED Attestation Note - Mikey Mcguire MD - 01/18/2022 10:20 PM EDT ED Attestation: I have reviewed the non physician practitioner's documentation, personally taken the patient's history, performed an exam and agree with the physical findings, clinical impression andmanagement plan ADDENDUM TO ATTESTATION An 82-year-old gentleman with previous transmetatarsal amputation by Dr. Mann of Critical Limb. He has had also vascular issues and follows with Dr. Sarabia. He has been having a red streak on his legearlier in the week, was put on antibiotics, seen by Dr. Mann. It became more red over the last 24 hours. Now he is having chills and fever, was advised to come in for IV antibiotics. He has been on oral antibiotics without improvement. On exam, he has marked erythema and tenderness of his ankle and tib-fib area. The stump itself looks fine. There is no soft tissue gas. It is warm. The patient has good popliteal pulse. He will not tolerate me touching his ankle, but it is hot and warm, not cold. X- rays are negative for soft tissue gas or obvious osteomyelitis. He has an elevated CRP. I will go ahead and admit him for IV antibiotics and Critical Limb consultation. [id number] Emergency department Triage note* Gregory Alvarado LPN - 01/18/2022 8:37 PM EDT Pt arrives to the ED with c/o redness and swelling to left amputated foot. Redness and swelling noted a couple days ago. Pt states he's nauseous, chills [id number] History of Present illness Narrative* Katie Anna RN - 01/18/2022 4:21 PM EDT Received progress note and images of left lower extremity dated 01-18-[address] Flash Webb. See scanned document in Media. documented in this [id number] History of Present illness Narrative* Светлана Briones LPN - 01/12/2022 9:20 AM EDT Ortho Nurse - Established Patient Intake Room#: 2----Visit today for 6 week follow up of Right hip. He had a right SHANNON done 07-15-21. He hashad this pain since surgery. The pain happens with certain movement. He did PT and took prednisone . This did not help. His pain today is a 5. Date: 01/12/2022 9:08 AM Patient: Tristin Powell . MR#: [id number] : 1940 Age: 82 y.o. Referring Physician: Self, Self Insurance: Payor: MEDICARE HU[employer] HMO PPO / Plan: MEDICARE HU[employer] HMO PPO / Product Type: *No Product type* / Chief Complaint Patient presents with Right Hip - Pain, Condition Update Visit Vitals Temp 97.1 F (36.2 C) (Temporal) Ht 1.88 m (6' 2 ) Wt 114.4 kg (252 lb 3.2 oz) BMI 32.38 kg/m Pain Presence of Pain: complains of pain/discomfort Pain Location: hip, right Select Pain Scale: DVPRS (Defense and Veterans Pain Rating Scale) (Adult- Cognitively Intact) Pain Location: hip, right Select Pain Scale: DVPRS (Defense and Veterans Pain Rating Scale) (Adult- Cognitively Intact) Recent Labs Lab Results Component Value Date CRP 1.39 09/01/2011 Lab Results Component Value Date SEDRATE 4 09/02/2011 Lab Results Component Value Date WBC 10.0 07/16/2021 HGB 11.7 (L) 07/16/2021 HCT 34.2 (L) 07/16/2021 PLATELET 127 (L) 07/16/2021 MCV 91.6 07/16/2021 History Past Medical History: Diagnosis Date Arthritis CAD (coronary artery disease) 3 stents placed COPD (chronic obstructive pulmonary disease) Essential hypertension, benign GERD (gastroesophageal reflux disease) Hyperlipidemia Prostate cancer Vascular disease Past Surgical History: Procedure Laterality Date ARTHROPLASTY HIP TOTAL ANTERIOR APPROACH Right 07/15/2021 Laterality: Right; Surgeon: Dashawn Silvestre MD; Location: [facility] PERIPHERAL ANGIOPLASTY N/A 08/09/2018 Laterality: N/A; Surgeon: Isaias Vogt MD; Location: [facility] PERIPHERAL STENT PLACEMENT N/A 08/09/2018 Laterality: N/A; Surgeon: Isaias Vogt MD; Location: [facility] ATHERECTOMY PERIPHERAL N/A 08/09/2018 Laterality: N/A; Surgeon: Isaias Vogt MD; Location: [facility]ATH[facility]EP [facility] CORONARY STENT PLACEMENT 2007 x3 total of 7 AMPUTATION front of left toes ANKLE FRACTURE SURGERY Left plate placed in L ankle CORONARY ARTERY BYPASS GRAFT 3 vessel RADIO/SURGICAL IMPLANT INDEX jul 2010-november 2010 radioactive seeds implanted prostate Family History: His family history includes Coronary Artery Disease in his maternal grandmother, paternal aunt, paternal grandmother, and paternal uncle; Diabetes in his mother; Myocardial Infarctionin his father and mother; No known problems in his daughter, sister, and son; Prostate Cancer in his brother. Social History: His reports that he has never smoked. He has never used smokeless tobacco. He reports that he does not drink alcohol and does not use drugs. Outpatient Medications Prior to Visit Medication Sig Dispense Refill acetaminophen 325 MG tablet Take 2 tablets by mouth every 4 hours as needed for Mild Pain. 50 tablet 1 albuterol (2.5 MG/3ML) 0.083% inhalation solution albuterol sulfate 2.5 mg/3 mL (0.083 %) solution for nebulization ASPIRIN 81 PO Take 81 mg by mouth. atorvastatin 40 MG Tab tablet Take 40 mg by mouth 2 times daily. Takes 1/2 tab bid gabapentin 100 MG Cap capsule Take 300 mg by mouth 3 times daily. losartan 50 MG tablet Take 25 mg by mouth daily. metoprolol succinate 50 MG PO tablet XL Take 50 mg by mouth 2 times daily. polyethylene glycol PO PACK take 1 Packet by mouth 2 times daily. 60 Packet 5 Rivaroxaban 20 MG tablet Take 2.5 mg by mouth 2 times daily. Start in 22 days after the 15mg dose is completed zolpidem 5 MG tablet Take 10 mg by mouth At bedtime as needed for Sleep. celecoxib 200 MG capsule Take 1 capsule by mouth 2 times daily. (Patient not taking: Reported on 01/12/2022) 60 capsule 0 docusate 100 MG capsule Take 1 capsule by mouth 2 times daily. (Patient not taking: Reported on 01/12/2022) 60 capsule 0 methylPREDNIsolone 4 MG Tab Therapy Pack tablet Take 1 tablet by mouth As directed. follow package directions (Patient not taking: Reported on 01/12/2022) 21 tablet 0 omeprazole [address] capsule Take 1 capsule by mouth daily. (Patient not taking: Reported on 01/12/2022) 30 capsule 0 oxyCODONE 5 MG tablet Take 1-2 tabs po q 4-6 hours PRN pain. Wean as tolerated. 40 tablet 0 senna 8.6 MG PO TABS take 1 Tab by mouth daily. (Patient not taking: Reported on 01/12/2022) 30 Tab 5 therapeutic multivitamin-minerals tablet Take 1 tablet by mouth at bedtime. (Patient not taking: Reported on 01/12/2022) 30 tablet 0 No facility-administered medications prior to visit. Allergies: He has No Known Allergies. * Dashawn Silvestre MD - 01/12/2022 9:20 AM EDT HPI: Tristin is here today for evaluation of his operative hip. He is status post right total hip arthroplasty on 07/15/21. He was last seen on 11/24/21 with complaints of increased radiating pain of 8/10. Heterotopic bone was demonstrated on radiographs. He was given a course of PT, medrol dose pack with transition to Celebrex. He states he was not able to take the Celebrex due to heart physican recommendation. He states he is still having pain with certain movements but states he has experienced slight improvements since last visit. His pain is a 5/10 upon exam today. He is here today for a 6 week follow-up. PHYSICAL EXAM: The bilateral lower extremities were evaluated. The operative lower extremity is soft with internal rotation of 15, normal flexion with stiffness over the anterior joint. No instability. The contralateral extremity has full motion, normal stability, no tenderness. Bilateral lower extremities have normal neurovascular status. DIAGNOSTIC STUDIES/INTERPRETATION: Plain film radiographs reviewed. He has a right total hip arthroplasty in good position and alignment. No evidence of prosthetic implant loosening or migration. Interval heterotopic bone growth have formed, No changes when compared to films on 11/24/21/ IMPRESSION: 1.) Stable status post right total hip arthroplasty. 2.) Heterotopic bone growth, rightprosthetic hip. PLAN: I reviewed my findings with Tristin. We reviewed this diagnosis and treatment options together.We discussed the effects of heterotopic bone growth as well as his inability to take Celebrex. We then discussed his unchanged imaging with no additional bone growth compared with films 6 weeks ago. Given the unchanged imaging, I suspect the bone growth has slowed down, however his active area is mostly likely what is causing his discomfort. At this time, there is no recommended treatment, just allow time to take its course. I suggested Voltaren gel but given deep location of hip joint, he understands this may not be effective. I also advise against additional steroids at this time. He fully u nderstands. I would expect slow and steady improvements every month. If he does not experience thisby the end of summer or should his symptoms get worse, he will call my office. Otherwise, I will see him back at his 1 year evaluation. All questions were answered. He has no further questions. I have reviewed the findings of my clinical staff below and agree with their assessment. Ortho Nurse - Established Patient Intake Room#: 2----Visit today for 6 week follow up of Right hip. He had a right SHANNON done 07-15-21. He hashad this pain since surgery. The pain happens with certain movement. He did PT and took prednisone . This did not help. His pain today is a 5. Date: 01/12/2022 9:08 AM Patient: Tristin Powell Sr. MR#: [id number] : 1940 Age: 82 y.o. Referring Physician: Self, Self Insurance: Payor: MEDICARE HU[employer]NA HMO PPO / Plan: MEDICARE HU[employer] HMO PPO / Product Type: *No Product type* / Chief Complaint Patient presents with Right Hip - Pain, Condition Update Visit Vitals Temp 97.1 F (36.2 C) (Temporal) Ht 1.88 m (6' 2 ) Wt 114.4 kg (252 lb 3.2 oz) BMI 32.38 kg/m Pain Presence of Pain: complains of pain/discomfort Pain Location: hip, right Select Pain Scale: DVPRS (Defense and Veterans Pain Rating Scale) (Adult- Cognitively Intact) Pain Location: hip, right Select Pain Scale: DVPRS (Defense and Veterans Pain Rating Scale) (Adult- Cognitively Intact) Recent Labs Lab Results Component Value Date CRP 1.39 09/01/2011 Lab Results Component Value Date SEDRATE 4 09/02/2011 Lab Results Component Value Date WBC 10.0 07/16/2021 HGB 11.7 (L) 07/16/2021 HCT 34.2 (L) 07/16/2021 PLATELET 127 (L) 07/16/2021 MCV 91.6 07/16/2021 History Past Medical History: Diagnosis Date Arthritis CAD (coronary artery disease) 3 stents placed COPD (chronic obstructive pulmonary disease) Essential hypertension, benign GERD (gastroesophageal reflux disease) Hyperlipidemia Prostate cancer Vascular disease Past Surgical History: Procedure Laterality Date ARTHROPLASTY HIP TOTAL ANTERIOR APPROACH Right 07/15/2021 Laterality: Right; Surgeon: Dashawn Silvestre MD; Location: [facility] PERIPHERAL ANGIOPLASTY N/A 08/09/2018 Laterality: N/A; Surgeon: Isaias Vogt MD; Location: [facility] PERIPHERAL STENT PLACEMENT N/A 08/09/2018 Laterality: N/A; Surgeon: Isaias Vogt MD; Location: [facility] ATHERECTOMY PERIPHERAL N/A 08/09/2018 Laterality: N/A; Surgeon: Isaias Vogt MD; Location: [facility] CORONARY STENT PLACEMENT 2007 x3 total of 7 AMPUTATION front of left toes ANKLE FRACTURE SURGERY Left plate placed in L ankle CORONARY ARTERY BYPASS GRAFT 3 vessel RADIO/SURGICAL IMPLANT INDEX jul 2010-november 2010 radioactive seeds implanted prostate Family History: His family history includes Coronary Artery Disease in his maternal grandmother, paternal aunt, paternal grandmother, and paternal uncle; Diabetes in his mother; Myocardial Infarctionin his father and mother; No known problems in his daughter, sister, and son; Prostate Cancer in his brother. Social History: His reports that he has never smoked. He has never used smokeless tobacco. He reports that he does not drink alcohol and does not use drugs. Outpatient Medications Prior to Visit Medication Sig Dispense Refill acetaminophen 325 MG tablet Take 2 tablets by mouth every 4 hours as needed for Mild Pain. 50 tablet 1 albuterol (2.5 MG/3ML) 0.083% inhalation solution albuterol sulfate 2.5 mg/3 mL (0.083 %) solution for nebulization ASPIRIN 81 PO Take 81 mg by mouth. atorvastatin 40 MG Tab tablet Take 40 mg by mouth 2 times daily. Takes 1/2 tab bid gabapentin 100 MG Cap capsule Take 300 mg by mouth 3 times daily. losartan 50 MG tablet Take 25 mg by mouth daily. metoprolol succinate 50 MG PO tablet XL Take 50 mg by mouth 2 times daily. polyethylene glycol PO PACK take 1 Packet by mouth 2 times daily. 60 Packet 5 Rivaroxaban 20 MG tablet Take 2.5 mg by mouth 2 times daily. Start in 22 days after the 15mg dose is completed zolpidem 5 MG tablet Take 10 mg by mouth At bedtime as needed for Sleep. celecoxib 200 MG capsule Take 1 capsule by mouth 2 times daily. (Patient not taking: Reported on 01/12/2022) 60 capsule 0 docusate 100 MG capsule Take 1 capsule by mouth 2 times daily. (Patient not taking: Reported on 01/12/2022) 60 capsule 0 methylPREDNIsolone 4 MG Tab Therapy Pack tablet Take 1 tablet by mouth As directed. follow package directions (Patient not taking: Reported on 01/12/2022) 21 tablet 0 omeprazole [address] capsule Take 1 capsule by mouth daily. (Patient not taking: Reported on 01/12/2022) 30 capsule 0 oxyCODONE 5 MG tablet Take 1-2 tabs po q 4-6 hours PRN pain. Wean as tolerated. 40 tablet 0 senna 8.6 MG PO TABS take 1 Tab by mouth daily. (Patient not taking: Reported on 01/12/2022) 30 Tab 5 therapeutic multivitamin-minerals tablet Take 1 tablet by mouth at bedtime. (Patient not taking: Reported on 01/12/2022) 30 tablet 0 No facility-administered medications prior to visit. Allergies: He has No Known Allergies. documented in this [facility]05-03-2022 History of Present illness Narrative* Ileana Kang Jr., DO - 12/28/2021 10:45 AM EDT Tristin Powell is a 81 y.o. male who presents for Chief Complaint Skin Lesion The patient is here today for the evaluation of multiple brown bumps on his chest and back that aredry and flaky and have continued to spread. He also has a red scaling bump of his right ear that istender and flaky. It has continued to grow and brown to red scaling bumps on his back. PHYSICAL EXAMINATION He has an erythematous scaling macule of his right ear with 4 red to brown crusted partially avulsed papules of his back with desquamating scale and brown crusted papules of his chest, back and arms. ASSESSMENT AND PLAN 1.Actinic keratosis of his right ear. I have treated this 1 actinic keratosis today with cryosurgery x2 freeze-thaw cycles. We discussed home care instructions, side effects and blistering. This was done after verbal consent was obtained. 2.Inflamed seborrheic keratosis of the back and abdomen. I treated these 5 inflamed seborrheic keratoses with cryosurgery x2 freeze-thaw cycles due to the partial avulsion, pain, and bleeding. We discussed home care instructions, side effects, and blistering. 3.Xerosis cutis of the chest and back. I recommended using Lac-Hydrin moisturizer to help with dryness and flaking. I have given him a prescription today. Past Medical History: Diagnosis Date Arthritis Avascular necrosis of bone of hip ([facility]) Claudication ([facility]) Herpes zoster Hyperlipidemia Hypertension Prostate cancer ([facility]) Vascular disease Past Medical History Pertinent Negatives: Diagnosis Date Noted Anemia 10/08/2018 Angina pectoris ([facility]) 10/08/2018 Anxiety 10/08/2018 Arrhythmia 10/08/2018 Asthma 10/08/2018 Atrial fibrillation ([facility]) 10/08/2018 Back pain 10/08/2018 Bladder problem 10/08/2018 Bleeding disorder ([facility]) 10/08/2018 Cataract 10/08/2018 CHF (congestive heart failure) ([facility]) 10/08/2018 Cholelithiasis 10/08/2018 Chronic kidney disease (CKD) 10/08/2018 Chronic pain disorder 10/08/2018 Clostridium difficile infection 10/08/2018 Complication of anesthesia 10/08/2018 COPD (chronic obstructive pulmonary disease) ([facility]) 10/08/2018 Crohn's disease ([facility]) 10/08/2018 Deep vein thrombosis ([facility]) 10/08/2018 Dermatitis 10/08/2018 Diabetes mellitus type I ([facility]) 10/08/2018 Diabetes mellitus, type 2 ([facility]) 10/08/2018 Diverticulosis 10/08/2018 Emphysema of lung ([facility]) 10/08/2018 Fibromyalgia, primary 10/08/2018 Hard to intubate 10/08/2018 Headache 10/08/2018 HIV disease ([facility]) 10/08/2018 Infectious viral hepatitis 10/08/2018 MRSA (methicillin resistant Staphylococcus aureus) 10/08/2018 Neck pain 10/08/2018 Nephrolithiasis 10/08/2018 Osteoporosis 10/08/2018 Overactive bladder 10/08/2018 PAD (peripheral artery disease) ([facility]) 10/08/2018 Parkinson's disease ([facility]) 10/08/2018 Peripheral neuropathy 10/08/2018 Postoperative retention of urine 10/08/2018 Problem with Qureshi catheter ([facility]) 10/08/2018 Rheumatoid arthritis ([facility]) 10/08/2018 Seizures ([facility]) 10/08/2018 Sleep apnea, obstructive 10/08/2018 Stroke (HCC) 10/08/2018 Thrombophlebitis 10/08/2018 TIA (transient ischemic attack) 10/08/2018 Tuberculosis 10/08/2018 Family History Cancer-related family history includes Prostate cancer in his brother. Review of Systems Constitutional: Malaise: No Skin: Other new or changing growths on skin: No Physical Examination Physical Exam The following areas were within normal limits except as noted otherwise in this note: Upper body: Oriented x 3/ alert; development/nourishment; mood/affect; scalp/hair; face; eyes/eyelids; lips; neck; digits/nails; right arm; left arm; chest; abdomen; back. Pertinent positive PE findings can be found below Assessment and Plan Ileana Kang DO 12/28/2021 documented in this [id number] History of Present illness Narrative* Hill Marquez LPN - 11/24/2021 9:50 AM EDT Ortho Nurse - Established Patient Intake Room#: 2 4 month Right SHANNON D/A, about 10 days ago for no reason he started having radiating pain upto an 8, no pain when sitting, was doing fine before this Date: 11/24/2021 9:46 AM Patient: Tristin Powell Sr. MR#: [id number] : 1940 Age: 81 y.o. Referring Physician: Self, Self Insurance: Payor: MEDICARE HU[employer]NA O PPO / Plan: MEDICARE [employer] HMO PPO / Product Type: *No Product type* / Chief Complaint Patient presents with Right Hip - Post Op Visit Visit Vitals Ht 1.88 m (6' 2 ) Wt 109.8 kg (242 lb) BMI 31.07 kg/m Pain Presence of Pain: complains of pain/discomfort Pain Location: hip, right Select Pain Scale: DVPRS (Defense and Veterans Pain Rating Scale) (Adult- Cognitively Intact) Pain Location: hip, right Select Pain Scale: DVPRS (Defense and Veterans Pain Rating Scale) (Adult- Cognitively Intact) Recent Labs Lab Results Component Value Date CRP 1.39 09/01/2011 Lab Results Component Value Date SEDRATE 4 09/02/2011 Lab Results Component Value Date WBC 10.0 07/16/2021 HGB 11.7 (L) 07/16/2021 HCT 34.2 (L) 07/16/2021 PLATELET 127 (L) 07/16/2021 MCV 91.6 07/16/2021 History Past Medical History: Diagnosis Date Arthritis CAD (coronary artery disease) 3 stents placed COPD (chronic obstructive pulmonary disease) Essential hypertension, benign GERD (gastroesophageal reflux disease) Hyperlipidemia Prostate cancer Vascular disease Past Surgical History: Procedure Laterality Date ARTHROPLASTY HIP TOTAL ANTERIOR APPROACH Right 07/15/2021 Laterality: Right; Surgeon: Dashawn Silvestre MD; Location: [facility] PERIPHERAL ANGIOPLASTY N/A 08/09/2018 Laterality: N/A; Surgeon: Isaias Vogt MD; Location: [facility] PERIPHERAL STENT PLACEMENT N/A 08/09/2018 Laterality: N/A; Surgeon: Isaias Vogt MD; Location: [facility] ATHERECTOMY PERIPHERAL N/A 08/09/2018 Laterality: N/A; Surgeon: Isaias Vogt MD; Location: [facility] CORONARY STENT PLACEMENT 2007 x3 total of 7 AMPUTATION front of left toes ANKLE FRACTURE SURGERY Left plate placed in L ankle CORONARY ARTERY BYPASS GRAFT 3 vessel RADIO/SURGICAL IMPLANT INDEX jul 2010-november 2010 radioactive seeds implanted prostate Family History: His family history includes Coronary Artery Disease in his maternal grandmother, paternal aunt, paternal grandmother, and paternal uncle; Diabetes in his mother; Myocardial Infarctionin his father and mother; No known problems in his daughter, sister, and son; Prostate Cancer in his brother. Social History: His reports that he has never smoked. He has never used smokeless tobacco. He reports that he does not drink alcohol and does not use drugs. Outpatient Medications Prior to Visit Medication Sig Dispense Refill acetaminophen 325 MG tablet Take 2 tablets by mouth every 4 hours as needed for Mild Pain. 50 tablet 1 albuterol (2.5 MG/3ML) 0.083% inhalation solution albuterol sulfate 2.5 mg/3 mL (0.083 %) solution for nebulization ASPIRIN 81 PO Take 81 mg by mouth. atorvastatin 40 MG Tab tablet Take 40 mg by mouth 2 times daily. Takes 1/2 tab bid docusate 100 MG capsule Take 1 capsule by mouth 2 times daily. 60 capsule 0 gabapentin 100 MG Cap capsule Take 300 mg by mouth 3 times daily. losartan 50 MG tablet Take 25 mg by mouth daily. metoprolol succinate 50 MG PO tablet XL Take 50 mg by mouth 2 times daily. omeprazole [address] capsule Take 1 capsule by mouth daily. 30 capsule 0 Rivaroxaban 20 MG tablet Take 2.5 mg by mouth 2 times daily. Start in 22 days after the 15mg dose is completed therapeutic multivitamin-minerals tablet Take 1 tablet by mouth at bedtime. 30 tablet 0 zolpidem 5 MG tablet Take 10 mg by mouth At bedtime as needed for Sleep. oxyCODONE 5 MG tablet Take 1-2 tabs po q 4-6 hours PRN pain. Wean as tolerated. 40 tablet 0 polyethylene glycol PO PACK take 1 Packet by mouth 2 times daily. 60 Packet 5 senna 8.6 MG PO TABS take 1 Tab by mouth daily. 30 Tab 5 No facility-administered medications prior to visit. Current Outpatient Medications: acetaminophen 325 MG tablet, Take 2 tablets by mouth every 4 hours as needed for Mild Pain., Disp: 50 tablet, Rfl: 1 albuterol (2.5 MG/3ML) 0.083% inhalation solution, albuterol sulfate 2.5 mg/3 mL (0.083 %) solutionfor nebulization, Disp: , Rfl: ASPIRIN 81 PO, Take 81 mg by mouth., Disp: , Rfl: atorvastatin 40 MG Tab tablet, Take 40 mg by mouth 2 times daily. Takes 1/2 tab bid, Disp: , Rfl: docusate 100 MG capsule, Take 1 capsule by mouth 2 times daily., Disp: 60 capsule, Rfl: 0 gabapentin 100 MG Cap capsule, Take 300 mg by mouth 3 times daily. , Disp: , Rfl: losartan 50 MG tablet, Take 25 mg by mouth daily. , Disp: , Rfl: metoprolol succinate 50 MG PO tablet XL, Take 50 mg by mouth 2 times daily., Disp: , Rfl: omeprazole [address] capsule, Take 1 capsule by mouth daily., Disp: 30 capsule, Rfl: 0 Rivaroxaban 20 MG tablet, Take 2.5 mg by mouth 2 times daily. Start in 22 days after the 15mg dose is completed, Disp: , Rfl: therapeutic multivitamin-minerals tablet, Take 1 tablet by mouth at bedtime., Disp: 30 tablet, Rfl:0 zolpidem 5 MG tablet, Take 10 mg by mouth At bedtime as needed for Sleep., Disp: , Rfl: oxyCODONE 5 MG tablet, Take 1-2 tabs po q 4-6 hours PRN pain. Wean as tolerated., Disp: 40 tablet, Rfl: 0 polyethylene glycol PO PACK, take 1 Packet by mouth 2 times daily., Disp: 60 Packet, Rfl: 5 senna 8.6 MG PO TABS, take 1 Tab by mouth daily., Disp: 30 Tab, Rfl: 5 Allergies: He has No Known Allergies. * Dashawn Silvestre MD - 11/24/2021 9:50 AM EDT HPI: Tristin is here today for evaluation of his operative hip. He is status post right total hip arthroplasty. He is about 4 months out and reports he begun suffering from increased radiating pain up to a 8/10. He states he had no pain prior and was doing well in his recovery. He denies accidents, injuries, fevers or chills. He is here today for a peace of mind evaluation as well as his routinely 4 month evaluation. PHYSICAL EXAM: The bilateral lower extremities were evaluated. The operative lower extremity is soft, nontender with full and supple motion of the hip. No pain, no impingement. No instability. The contralateral extremity has full motion, normal stability, no tenderness. Bilateral lower extremities have normal neurovascular status. DIAGNOSTIC STUDIES/INTERPRETATION: Plain film radiographs reviewed. He has a right total hip arthroplasty in good position and alignment. No evidence of prosthetic implant loosening or migration. Interval heterotopic bone growth have formed, otherwise no additional changes from immediate postop films. IMPRESSION: 1.) Stable status post right total hip arthroplasty. 2.) Heterotopic bone growth, rightprosthetic hip. PLAN: I reviewed my findings with Tristin. We discussed the diagnosis and treatment options. We discussed the stages of healing along with what symptoms he can expect at each stage. We also reviewed his radiographs which demonstrated increased heterotopic bone growth. We then discussed the various reasons behind heterotopic bone growth. At this time, I will start a medrol dose pack to be completed first and then transition to a course of Celebrex along with a formal script of physical therapy. Heis in agreement with plan of care. I will see him back in 6 weeks for repeat evaluation. All questions were answered. He has no further questions. I have reviewed the findings of my clinical staff below and agree with their assessment. Ortho Nurse - Established Patient Intake Room#: 2 4 month Right SHANNON D/A, about 10 days ago for no reason he started having radiating pain upto an 8, no pain when sitting, was doing fine before this Date: 11/24/2021 9:46 AM Patient: Tristin Powell Sr. MR#: [id number] : 1940 Age: 81 y.o. Referring Physician: Self, Self Insurance: Payor: MEDICARE HU[employer]NA HMO PPO / Plan: MEDICARE HU[employer] HMO PPO / Product Type: *No Product type* / Chief Complaint Patient presents with Right Hip - Post Op Visit Visit Vitals Ht 1.88 m (6' 2 ) Wt 109.8 kg (242 lb) BMI 31.07 kg/m Pain Presence of Pain: complains of pain/discomfort Pain Location: hip, right Select Pain Scale: DVPRS (Defense and Veterans Pain Rating Scale) (Adult- Cognitively Intact) Pain Location: hip, right Select Pain Scale: DVPRS (Defense and Veterans Pain Rating Scale) (Adult- Cognitively Intact) Recent Labs Lab Results Component Value Date CRP 1.39 09/01/2011 Lab Results Component Value Date SEDRATE 4 09/02/2011 Lab Results Component Value Date WBC 10.0 07/16/2021 HGB 11.7 (L) 07/16/2021 HCT 34.2 (L) 07/16/2021 PLATELET 127 (L) 07/16/2021 MCV 91.6 07/16/2021 History Past Medical History: Diagnosis Date Arthritis CAD (coronary artery disease) 3 stents placed COPD (chronic obstructive pulmonary disease) Essential hypertension, benign GERD (gastroesophageal reflux disease) Hyperlipidemia Prostate cancer Vascular disease Past Surgical History: Procedure Laterality Date ARTHROPLASTY HIP TOTAL ANTERIOR APPROACH Right 07/15/2021 Laterality: Right; Surgeon: Dashawn Silvestre MD; Location: [facility] PERIPHERAL ANGIOPLASTY N/A 08/09/2018 Laterality: N/A; Surgeon: Isaias Vogt MD; Location: [facility] PERIPHERAL STENT PLACEMENT N/A 08/09/2018 Laterality: N/A; Surgeon: Isaias Vogt MD; Location: [facility] CATH[facility]EP [facility] ATHERECTOMY PERIPHERAL N/A 08/09/2018 Laterality: N/A; Surgeon: Isaias Vogt MD; Location: [facility] CATH[facility]EP LAB CORONARY STENT PLACEMENT 2007 x3 total of 7 AMPUTATION front of left toes ANKLE FRACTURE SURGERY Left plate placed in L ankle CORONARY ARTERY BYPASS GRAFT 3 vessel RADIO/SURGICAL IMPLANT INDEX jul 2010-november 2010 radioactive seeds implanted prostate Family History: His family history includes Coronary Artery Disease in his maternal grandmother, paternal aunt, paternal grandmother, and paternal uncle; Diabetes in his mother; Myocardial Infarctionin his father and mother; No known problems in his daughter, sister, and son; Prostate Cancer in his brother. Social History: His reports that he has never smoked. He has never used smokeless tobacco. He reports that he does not drink alcohol and does not use drugs. Outpatient Medications Prior to Visit Medication Sig Dispense Refill acetaminophen 325 MG tablet Take 2 tablets by mouth every 4 hours as needed for Mild Pain. 50 tablet 1 albuterol (2.5 MG/3ML) 0.083% inhalation solution albuterol sulfate 2.5 mg/3 mL (0.083 %) solution for nebulization ASPIRIN 81 PO Take 81 mg by mouth. atorvastatin 40 MG Tab tablet Take 40 mg by mouth 2 times daily. Takes 1/2 tab bid docusate 100 MG capsule Take 1 capsule by mouth 2 times daily. 60 capsule 0 gabapentin 100 MG Cap capsule Take 300 mg by mouth 3 times daily. losartan 50 MG tablet Take 25 mg by mouth daily. metoprolol succinate 50 MG PO tablet XL Take 50 mg by mouth 2 times daily. omeprazole [address] capsule Take 1 capsule by mouth daily. 30 capsule 0 Rivaroxaban 20 MG tablet Take 2.5 mg by mouth 2 times daily. Start in 22 days after the 15mg dose is completed therapeutic multivitamin-minerals tablet Take 1 tablet by mouth at bedtime. 30 tablet 0 zolpidem 5 MG tablet Take 10 mg by mouth At bedtime as needed for Sleep. oxyCODONE 5 MG tablet Take 1-2 tabs po q 4-6 hours PRN pain. Wean as tolerated. 40 tablet 0 polyethylene glycol PO PACK take 1 Packet by mouth 2 times daily. 60 Packet 5 senna 8.6 MG PO TABS take 1 Tab by mouth daily. 30 Tab 5 No facility-administered medications prior to visit. Current Outpatient Medications: acetaminophen 325 MG tablet, Take 2 tablets by mouth every 4 hours as needed for Mild Pain., Disp: 50 tablet, Rfl: 1 albuterol (2.5 MG/3ML) 0.083% inhalation solution, albuterol sulfate 2.5 mg/3 mL (0.083 %) solutionfor nebulization, Disp: , Rfl: ASPIRIN 81 PO, Take 81 mg by mouth., Disp: , Rfl: atorvastatin 40 MG Tab tablet, Take 40 mg by mouth 2 times daily. Takes 1/2 tab bid, Disp: , Rfl: docusate 100 MG capsule, Take 1 capsule by mouth 2 times daily., Disp: 60 capsule, Rfl: 0 gabapentin 100 MG Cap capsule, Take 300 mg by mouth 3 times daily. , Disp: , Rfl: losartan 50 MG tablet, Take 25 mg by mouth daily. , Disp: , Rfl: metoprolol succinate 50 MG PO tablet XL, Take 50 mg by mouth 2 times daily., Disp: , Rfl: omeprazole [address] capsule, Take 1 capsule by mouth daily., Disp: 30 capsule, Rfl: 0 Rivaroxaban 20 MG tablet, Take 2.5 mg by mouth 2 times daily. Start in 22 days after the 15mg dose is completed, Disp: , Rfl: therapeutic multivitamin-minerals tablet, Take 1 tablet by mouth at bedtime., Disp: 30 tablet, Rfl:0 zolpidem 5 MG tablet, Take 10 mg by mouth At bedtime as needed for Sleep., Disp: , Rfl: oxyCODONE 5 MG tablet, Take 1-2 tabs po q 4-6 hours PRN pain. Wean as tolerated., Disp: 40 tablet, Rfl: 0 polyethylene glycol PO PACK, take 1 Packet by mouth 2 times daily., Disp: 60 Packet, Rfl: 5 senna 8.6 MG PO TABS, take 1 Tab by mouth daily., Disp: 30 Tab, Rfl: 5 Allergies: He has No Known Allergies. [facility] No data available for this section [facility] evaluation + Plan note Future Appointments Appointment Date:12/26/2023 01:00:00 PM Scheduled Provider:BRENNA MOSQUERA PA-C Location:[facility] Appointment Type:URO Office Visit Diagnostic Tests Pending * PSA Total 12/20/[address] [facility] evalqnvllk note* Diagnosis Bilateral carotid artery stenosis- Primary Occlusion and stenosis of carotid artery without mention of cerebral infarction PAD (peripheral artery disease) (HCC) Unspecified peripheral vascular disease [facility] PAD (peripheral artery disease) (HCC)- Primary Unspecified peripheral vascular disease [facility]* Diagnosis [facility] in [facility] joint, subsequent encounter- [facility] Actinic keratosis- Primary SK (seborrheic keratosis) Other seborrheic keratosis Inflamed seborrheic keratosis Skin tenderness Disturbance of skin sensation Xerosis cutis Other specified disease of sebaceous glands [facility]* Diagnosis Hx of total hip arthroplasty, right- Primary [facility] Diagnosis Cellulitis- Primary Cellulitis and abscess of unspecified site Left leg cellulitis 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) Elevated C-reactive protein (CRP) Pulmonary nodule Other diseases of lung, not elsewhere classified Essential hypertension Unspecified essential hypertension PAD (peripheral artery disease) (HCC) Unspecified peripheral vascular disease [facility]* Diagnosis Chronic obstructive pulmonary disease, unspecified COPD type (HCC)- Primary Pulmonary nodule Other diseases of lung, not elsewhere classified [facility]* Diagnosis PAD (peripheral artery disease) (HCC)- Primary Unspecified peripheral vascular disease Pain of right lower extremity Hypertension, unspecified type [facility] Work Phone: Evaluliwp[facility] note* Diagnosis Bilateral carotid artery stenosis- Primary Occlusion and stenosis of carotid artery without mention of cerebral infarction [facility]* Diagnosis Hx of total hip arthroplasty, right- Primary [facility] Diagnosis Chronic obstructive pulmonary disease, unspecified COPD type (HCC) [facility] Diagnosis Community acquired pneumonia of left lower lobe of lung- Primary Community acquired pneumonia of left lower lobe of lung Elevated troponin Other abnormal blood chemistry Peripheral edema Edema Hematoma of arm, left, initial encounter PAD (peripheral artery disease) (HCC) Unspecified peripheral vascular disease [facility]* Diagnosis PAD (peripheral artery disease) (HCC)- Primary Unspecified peripheral vascular disease [facility]* Diagnosis Critical lower limb ischemia (HCC)- Primary Unspecified circulatory system disorder [facility]* Diagnosis Hx of total hip arthroplasty, right- Primary [facility]* Diagnosis Phantom limb pain (CMS/HCC)- Primary Phantom limb (syndrome) Lumbosacral spondylosis without myelopathy Abdominal aortic aneurysm (AAA) without rupture, unspecified part (CMS/HCC) Benign essential hypertension (CMS/HCC) Essential hypertension, benign Routine general medical examination at health care facility- Primary Routine general medical examination at a health care facility Hypercholesteremia (CMS/HCC) Pure hypercholesterolemia Flu vaccine need Benign essential hypertension (CMS/HCC) Essential hypertension, benign Nausea Nausea alone Stenosis of right carotid artery Occlusion and stenosis of carotid artery without mention of cerebral infarction Peripheral arterial disease (CMS/HCC) Unspecified peripheral vascular disease Benign essential hypertension (CMS/HCC)- Primary Essential hypertension, benign Sinusitis, unspecified chronicity, unspecified location Heartburn Claudication of right lower extremity (CMS/HCC) PVD (peripheral vascular disease) with claudication (CMS/HCC) Unspecified peripheral vascular disease Seasonal allergic rhinitis due to pollen- Primary Heartburn 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CMS/HCC) Lumbosacral spondylosis without myelopathy Chronic obstructive pulmonary disease, unspecified COPD type (CMS/HCC) Acute cystitis without hematuria- Primary Seasonal allergic rhinitis due to pollen Other thrombophilia (CMS/HCC) Malignant neoplasm of prostate (CMS/HCC) Malignant neoplasm of prostate Benign essential hypertension (CMS/HCC) Essential hypertension, benign Upper respiratory tract infection, unspecified type- [facility] Phantom limb pain (CMS/HCC)- Primary Phantom limb (syndrome) Lumbosacral spondylosis without myelopathy Abdominal aortic aneurysm (AAA) without rupture, unspecified part (CMS/HCC) Benign essential hypertension (CMS/HCC) Essential hypertension, benign Routine general medical examination at health care facility- Primary Routine general medical examination at a health care facility Hypercholesteremia (CMS/HCC) Pure hypercholesterolemia Flu vaccine need Benign essential hypertension (CMS/HCC) Essential hypertension, benign Nausea Nausea alone Stenosis of right carotid artery Occlusion and stenosis of carotid artery without mention of cerebral infarction Peripheral arterial disease (CMS/HCC) Unspecified peripheral vascular disease Benign essential hypertension (CMS/HCC)- Primary Essential hypertension, benign Sinusitis, unspecified chronicity, unspecified location Heartburn Claudication of right lower extremity (CMS/HCC) PVD (peripheral vascular disease) with claudication (CMS/HCC) Unspecified peripheral vascular disease Seasonal allergic rhinitis due to pollen- Primary Heartburn 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CMS/HCC) Lumbosacral spondylosis without myelopathy Chronic obstructive pulmonary disease, unspecified COPD type (CMS/HCC) Acute cystitis without hematuria- Primary Seasonal allergic rhinitis due to pollen Other thrombophilia (CMS/HCC) Malignant neoplasm of prostate (CMS/HCC) Malignant neoplasm of prostate Benign essential hypertension (CMS/HCC) Essential hypertension, benign Lumbosacral spondylosis without myelopathy documented in this encounter [facility]* Diagnosis Ischemic foot- Primary PAD (peripheral artery disease) (HCC) Unspecified peripheral vascular disease Critical lower limb ischemia (HCC) Unspecified circulatory system disorder Critical lower limb ischemia (HCC) Unspecified circulatory system disorder Coronary artery disease involving coronary bypass graft of [place] heart without angina pectoris Hypercholesteremia Pure hypercholesterolemia Class 1 obesity with body mass index (BMI) of 31.0 to 31.9 in adult Pain of left lower extremity Community acquired pneumonia of left lower lobe of lung- Primary Community acquired pneumonia of left lower lobe of lung Elevated troponin Other abnormal blood chemistry Peripheral edema Edema Hematoma of arm, left, initial encounter PAD (peripheral artery disease) (HCC) Unspecified peripheral vascular disease PVD (peripheral vascular disease) ([facility])- Primary Unspecified peripheral vascular disease [facility] Phantom limb pain (CMS/HCC)- Primary Phantom limb (syndrome) Lumbosacral spondylosis without myelopathy Abdominal aortic aneurysm (AAA) without rupture, unspecified part (CMS/HCC) Benign essential hypertension (CMS/HCC) Essential hypertension, benign Routine general medical examination at health care facility- Primary Routine general medical examination at a health care facility Hypercholesteremia (CMS/HCC) Pure hypercholesterolemia Flu vaccine need Benign essential hypertension (CMS/HCC) Essential hypertension, benign Nausea Nausea alone Stenosis of right carotid artery Occlusion and stenosis of carotid artery without mention of cerebral infarction Peripheral arterial disease (CMS/HCC) Unspecified peripheral vascular disease Benign essential hypertension (CMS/HCC)- Primary Essential hypertension, benign Sinusitis, unspecified chronicity, unspecified location Heartburn Claudication of right lower extremity (CMS/HCC) PVD (peripheral vascular disease) with claudication (CMS/HCC) Unspecified peripheral vascular disease Seasonal allergic rhinitis due to pollen- Primary Heartburn 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CMS/HCC) Lumbosacral spondylosis without myelopathy Chronic obstructive pulmonary disease, unspecified COPD type (CMS/HCC) Acute cystitis without hematuria- Primary Seasonal allergic rhinitis due to pollen Other thrombophilia (CMS/HCC) Malignant neoplasm of prostate (CMS/HCC) Malignant neoplasm of prostate Benign essential hypertension (CMS/HCC) Essential hypertension, benign Lumbosacral spondylosis without myelopathy documented in this encounter [facility]* Diagnosis Community acquired pneumonia of left lung, unspecified part of lung- Primary COPD exacerbation (HCC) Obstructive chronic bronchitis with exacerbation documented in this encounter [employer]: evaluation note* Diagnosis Community acquired pneumonia of left lung, unspecified part of lung- Primary COPD exacerbation (HCC) Obstructive chronic bronchitis with exacerbation documented in this encounter [employer]: evaluation note* Diagnosis Phantom limb pain (CMS/HCC)- Primary Phantom limb (syndrome) Lumbosacral spondylosis without myelopathy Abdominal aortic aneurysm (AAA) without rupture, unspecified part (CMS/HCC) Benign essential hypertension (CMS/HCC) Essential hypertension, benign Routine general medical examination at health care facility- Primary Routine general medical examination at a health care facility Hypercholesteremia (CMS/HCC) Pure hypercholesterolemia Flu vaccine need Benign essential hypertension (CMS/HCC) Essential hypertension, benign Nausea Nausea alone Stenosis of right carotid artery Occlusion and stenosis of carotid artery without mention of cerebral infarction Peripheral arterial disease (CMS/HCC) Unspecified peripheral vascular disease Benign essential hypertension (CMS/HCC)- Primary Essential hypertension, benign Sinusitis, unspecified chronicity, unspecified location Heartburn Claudication of right lower extremity (CMS/HCC) PVD (peripheral vascular disease) with claudication (CMS/HCC) Unspecified peripheral vascular disease Seasonal allergic rhinitis due to pollen- Primary Heartburn 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CMS/HCC) Lumbosacral spondylosis without myelopathy Chronic obstructive pulmonary disease, unspecified COPD type (CMS/HCC) Acute cystitis without hematuria- Primary Seasonal allergic rhinitis due to pollen Other thrombophilia (CMS/HCC) Malignant neoplasm of prostate (CMS/HCC) Malignant neoplasm of prostate Benign essential hypertension (CMS/HCC) Essential hypertension, benign Other chronic pain- Primary Primary insomnia Persistent disorder of initiating or maintaining sleep Seasonal allergic rhinitis due to pollen Encounter for vaccination Phantom limb pain (CMS/HCC) Phantom limb (syndrome) documented in this encounter [facility]* Diagnosis Medicare annual wellness visit, subsequent- Primary ACP (advance care planning) Other specified counseling Primary insomnia Persistent disorder of initiating or maintaining sleep Neuropathy Mononeuritis of unspecified site Other chronic pain Paresthesia of skin Phantom limb pain (CMS/HCC) Phantom limb (syndrome) Polymyalgia rheumatica ([facility]/HCC) Polymyalgia rheumatica Mild persistent asthmatic bronchitis without complication (CMS/HCC) Chronic bronchitis, unspecified chronic bronchitis type (CMS/HCC) Dyspnea on exertion Other dyspnea and respiratory abnormality Orthopnea Snoring Other dyspnea and respiratory abnormality Solitary pulmonary nodule Abdominal aortic aneurysm (AAA) without rupture, unspecified part (CMS/HCC) Aortic valve insufficiency, etiology of cardiac valve disease unspecified Atherosclerosis of [place] coronary artery of [place] heart without angina pectoris (CMS/HCC) Benign essential hypertension (CMS/HCC) Essential hypertension, benign Stenosis of right carotid artery Occlusion and stenosis of carotid artery without mention of cerebral infarction Chronic heart failure with preserved ejection fraction (CMS/HCC) Chronic ischemic heart disease (CMS/HCC) Unspecified chronic ischemic heart disease Mitral valve insufficiency, unspecified etiology Paroxysmal atrial fibrillation (CMS/HCC) Atrial fibrillation Preinfarction syndrome (CMS/HCC) Intermediate coronary syndrome PVD (peripheral vascular disease) with claudication (CMS/HCC) Unspecified peripheral vascular disease Thoracic aortic aneurysm without rupture, unspecified part (CMS/HCC) Heartburn 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 Malignant neoplasm of prostate (CMS/HCC) Malignant neoplasm of prostate Stage 3a chronic kidney disease (HCC) (CMS/HCC) Arthritis Unspecified arthropathy, site unspecified Status post total replacement of right hip Claudication of right lower extremity (CMS/HCC) Lumbosacral spondylosis without myelopathy Posterior tibial tendinitis of right leg Primary osteoarthritis of right hip Class 1 obesity with serious comorbidity and body mass index (BMI) of 31.0 to 31.9 in adult, unspecified obesity type Elevated erythrocyte sedimentation rate Elevated sedimentation rate Other thrombophilia (CMS/HCC) Abnormal radiographic examination Other nonspecific (abnormal) findings on radiological and other examinations of body structure Disorder of lipid metabolism (CMS/HCC) Unspecified disorder of lipoid metabolism Left sciatic nerve pain Mixed hyperlipidemia (CMS/HCC) Mixed hyperlipidemia Seasonal allergic rhinitis due to pollen 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CMS/HCC) Atherosclerosis of [place] arteries of extremities with rest pain, unspecified extremity (CMS/HCC) Pulmonary hypertension, unspecified (CMS/HCC) documented in this encounter [facility]* Diagnosis Chest pain in adult- Primary Lumbosacral spondylosis 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) Seasonal allergic rhinitis due to pollen documented in this encounter [facility]* Diagnosis Phantom limb pain (CMS/HCC)- Primary Phantom limb (syndrome) Lumbosacral spondylosis without myelopathy Abdominal aortic aneurysm (AAA) without rupture, unspecified part (CMS/HCC) Benign essential hypertension (CMS/HCC) Essential hypertension, benign Routine general medical examination at health care facility- Primary Routine general medical examination at a health care facility Hypercholesteremia (CMS/HCC) Pure hypercholesterolemia Flu vaccine need Benign essential hypertension (CMS/HCC) Essential hypertension, benign Nausea Nausea alone Stenosis of right carotid artery Occlusion and stenosis of carotid artery without mention of cerebral infarction Peripheral arterial disease (CMS/HCC) Unspecified peripheral vascular disease Benign essential hypertension (CMS/HCC)- Primary Essential hypertension, benign Sinusitis, unspecified chronicity, unspecified location Heartburn Claudication of right lower extremity (CMS/HCC) PVD (peripheral vascular disease) with claudication (CMS/HCC) Unspecified peripheral vascular disease Seasonal allergic rhinitis due to pollen- Primary Heartburn 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CMS/HCC) Lumbosacral spondylosis without myelopathy Chronic obstructive pulmonary disease, unspecified COPD type (CMS/HCC) Acute cystitis without hematuria- Primary Seasonal allergic rhinitis due to pollen Other thrombophilia (CMS/HCC) Malignant neoplasm of prostate (CMS/HCC) Malignant neoplasm of prostate Benign essential hypertension (CMS/HCC) Essential hypertension, benign Other chronic pain- Primary Primary insomnia Persistent disorder of initiating or maintaining sleep Seasonal allergic rhinitis due to pollen Encounter for vaccination Phantom limb pain (CMS/HCC) Phantom limb (syndrome) Lumbosacral spondylosis without myelopathy documented in this encounter [facility]* Diagnosis Phantom limb pain (CMS/HCC)- Primary Phantom limb (syndrome) Lumbosacral spondylosis without myelopathy Abdominal aortic aneurysm (AAA) without rupture, unspecified part (CMS/HCC) Benign essential hypertension (CMS/HCC) Essential hypertension, benign Routine general medical examination at health care facility- Primary Routine general medical examination at a health care facility Hypercholesteremia (CMS/HCC) Pure hypercholesterolemia Flu vaccine need Benign essential hypertension (CMS/HCC) Essential hypertension, benign Nausea Nausea alone Stenosis of right carotid artery Occlusion and stenosis of carotid artery without mention of cerebral infarction Peripheral arterial disease (CMS/HCC) Unspecified peripheral vascular disease Benign essential hypertension (CMS/HCC)- Primary Essential hypertension, benign Sinusitis, unspecified chronicity, unspecified location Heartburn Claudication of right lower extremity (CMS/HCC) PVD (peripheral vascular disease) with claudication (CMS/HCC) Unspecified peripheral vascular disease Seasonal allergic rhinitis due to pollen- Primary Heartburn 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CMS/HCC) Lumbosacral spondylosis without myelopathy Chronic obstructive pulmonary disease, unspecified COPD type (CMS/HCC) Acute cystitis without hematuria- Primary Seasonal allergic rhinitis due to pollen Other thrombophilia (CMS/HCC) Malignant neoplasm of prostate (CMS/HCC) Malignant neoplasm of prostate Benign essential hypertension (CMS/HCC) Essential hypertension, benign Other chronic pain- Primary Primary insomnia Persistent disorder of initiating or maintaining sleep Seasonal allergic rhinitis due to pollen Encounter for vaccination Phantom limb pain (CMS/HCC) Phantom limb (syndrome) Lumbosacral spondylosis without myelopathy documented in this encounter [facility]* Diagnosis Phantom limb pain (CMS/HCC)- Primary Phantom limb (syndrome) Lumbosacral spondylosis without myelopathy Abdominal aortic aneurysm (AAA) without rupture, unspecified part (CMS/HCC) Benign essential hypertension (CMS/HCC) Essential hypertension, benign Routine general medical examination at health care facility- Primary Routine general medical examination at a health care facility Hypercholesteremia (CMS/HCC) Pure hypercholesterolemia Flu vaccine need Benign essential hypertension (CMS/HCC) Essential hypertension, benign Nausea Nausea alone Stenosis of right carotid artery Occlusion and stenosis of carotid artery without mention of cerebral infarction Peripheral arterial disease (CMS/HCC) Unspecified peripheral vascular disease Benign essential hypertension (CMS/HCC)- Primary Essential hypertension, benign Sinusitis, unspecified chronicity, unspecified location Heartburn Claudication of right lower extremity (CMS/HCC) PVD (peripheral vascular disease) with claudication (CMS/HCC) Unspecified peripheral vascular disease Seasonal allergic rhinitis due to pollen- Primary Heartburn 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CMS/HCC) Lumbosacral spondylosis without myelopathy Chronic obstructive pulmonary disease, unspecified COPD type (CMS/HCC) Acute cystitis without hematuria- Primary Seasonal allergic rhinitis due to pollen Other thrombophilia Malignant neoplasm of prostate (CMS/HCC) Malignant neoplasm of prostate Benign essential hypertension (CMS/HCC) Essential hypertension, benign Other chronic pain- Primary Primary insomnia Persistent disorder of initiating or maintaining sleep Seasonal allergic rhinitis due to pollen Encounter for vaccination Phantom limb pain (CMS/HCC) Phantom limb (syndrome) Seasonal allergic rhinitis due to pollen Unspecified chronic bronchitis (CMS/HCC) Unspecified chronic bronchitis Chronic diastolic (congestive) heart failure Atherosclerosis of [place] arteries of extremities with rest pain, unspecified extremity (CMS/HCC) Other complications of amputation stump Acquired absence of left foot (CMS/HCC) Acquired absence of unspecified foot (CMS/HCC) 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) 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 (CMS/HCC) Bronchiectasis, uncomplicated (CMS/HCC) Phantom limb syndrome with pain (CMS/HCC) Phantom limb (syndrome) Chronic obstructive pulmonary disease, unspecified Malignant neoplasm of prostate (CMS/HCC) Malignant neoplasm of prostate Pulmonary hypertension, unspecified (CMS/HCC) Benign essential hypertension (CMS/HCC)- Primary Essential hypertension, benign Stage 3a chronic kidney disease (HCC) (CMS/HCC) documented in this encounter [facility]* Diagnosis Phantom limb pain (CMS/HCC)- Primary Phantom limb (syndrome) Lumbosacral spondylosis without myelopathy Abdominal aortic aneurysm (AAA) without rupture, unspecified part (CMS/HCC) Benign essential hypertension (CMS/HCC) Essential hypertension, benign Routine general medical examination at health care facility- Primary Routine general medical examination at a health care facility Hypercholesteremia (CMS/HCC) Pure hypercholesterolemia Flu vaccine need Benign essential hypertension (CMS/HCC) Essential hypertension, benign Nausea Nausea alone Stenosis of right carotid artery Occlusion and stenosis of carotid artery without mention of cerebral infarction Peripheral arterial disease (CMS/HCC) Unspecified peripheral vascular disease Benign essential hypertension (CMS/HCC)- Primary Essential hypertension, benign Sinusitis, unspecified chronicity, unspecified location Heartburn Claudication of right lower extremity (CMS/HCC) PVD (peripheral vascular disease) with claudication (CMS/HCC) Unspecified peripheral vascular disease Seasonal allergic rhinitis due to pollen- Primary Heartburn 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CMS/HCC) Lumbosacral spondylosis without myelopathy Chronic obstructive pulmonary disease, unspecified COPD type (CMS/HCC) Acute cystitis without hematuria- Primary Seasonal allergic rhinitis due to pollen Other thrombophilia Malignant neoplasm of prostate (CMS/HCC) Malignant neoplasm of prostate Benign essential hypertension (CMS/HCC) Essential hypertension, benign Other chronic pain- Primary Primary insomnia Persistent disorder of initiating or maintaining sleep Seasonal allergic rhinitis due to pollen Encounter for vaccination Phantom limb pain (CMS/HCC) Phantom limb (syndrome) Seasonal allergic rhinitis due to pollen Unspecified chronic bronchitis (CMS/HCC) Unspecified chronic bronchitis Chronic diastolic (congestive) heart failure Atherosclerosis of [place] arteries of extremities with rest pain, unspecified extremity (CMS/HCC) Other complications of amputation stump Acquired absence of left foot (CMS/HCC) Acquired absence of unspecified foot (CMS/HCC) 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) 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 (CMS/HCC) Bronchiectasis, uncomplicated (CMS/HCC) Phantom limb syndrome with pain (CMS/HCC) Phantom limb (syndrome) Chronic obstructive pulmonary disease, unspecified Malignant neoplasm of prostate (CMS/HCC) Malignant neoplasm of prostate Pulmonary hypertension, unspecified (CMS/HCC) Other chronic pain- Primary Sinusitis, unspecified chronicity, unspecified location Lumbosacral spondylosis without myelopathy documented in this encounter [facility]* Diagnosis Phantom limb pain (CMS/HCC)- Primary Phantom limb (syndrome) Lumbosacral spondylosis without myelopathy Abdominal aortic aneurysm (AAA) without rupture, unspecified part (CMS/HCC) Benign essential hypertension (CMS/HCC) Essential hypertension, benign Routine general medical examination at health care facility- Primary Routine general medical examination at a health care facility Hypercholesteremia (CMS/HCC) Pure hypercholesterolemia Flu vaccine need Benign essential hypertension (CMS/HCC) Essential hypertension, benign Nausea Nausea alone Stenosis of right carotid artery Occlusion and stenosis of carotid artery without mention of cerebral infarction Peripheral arterial disease (CMS/HCC) Unspecified peripheral vascular disease Benign essential hypertension (CMS/HCC)- Primary Essential hypertension, benign Sinusitis, unspecified chronicity, unspecified location Heartburn Claudication of right lower extremity (CMS/HCC) PVD (peripheral vascular disease) with claudication (CMS/HCC) Unspecified peripheral vascular disease Seasonal allergic rhinitis due to pollen- Primary Heartburn 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CMS/HCC) Lumbosacral spondylosis without myelopathy Chronic obstructive pulmonary disease, unspecified COPD type (CMS/HCC) Acute cystitis without hematuria- Primary Seasonal allergic rhinitis due to pollen Other thrombophilia Malignant neoplasm of prostate (CMS/HCC) Malignant neoplasm of prostate Benign essential hypertension (CMS/HCC) Essential hypertension, benign Other chronic pain- Primary Primary insomnia Persistent disorder of initiating or maintaining sleep Seasonal allergic rhinitis due to pollen Encounter for vaccination Phantom limb pain (CMS/HCC) Phantom limb (syndrome) Seasonal allergic rhinitis due to pollen Unspecified chronic bronchitis (CMS/HCC) Unspecified chronic bronchitis Chronic diastolic (congestive) heart failure Atherosclerosis of [place] arteries of extremities with rest pain, unspecified extremity (CMS/HCC) Other complications of amputation stump Acquired absence of left foot (CMS/HCC) Acquired absence of unspecified foot (CMS/HCC) 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) 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 (CMS/HCC) Bronchiectasis, uncomplicated (CMS/HCC) Phantom limb syndrome with pain (CMS/HCC) Phantom limb (syndrome) Chronic obstructive pulmonary disease, unspecified Malignant neoplasm of prostate (CMS/HCC) Malignant neoplasm of prostate Pulmonary hypertension, unspecified (CMS/HCC) Other chronic pain Lumbosacral spondylosis without myelopathy documented in this encounter [facility]Evaluation [facility]* Diagnosis Phantom limb pain (CMS/HCC)- Primary Phantom limb (syndrome) Lumbosacral spondylosis without myelopathy Abdominal aortic aneurysm (AAA) without rupture, unspecified part (CMS/HCC) Benign essential hypertension (CMS/HCC) Essential hypertension, benign Routine general medical examination at health care facility- Primary Routine general medical examination at a health care facility Hypercholesteremia (CMS/HCC) Pure hypercholesterolemia Flu vaccine need Benign essential hypertension (CMS/HCC) Essential hypertension, benign Nausea Nausea alone Stenosis of right carotid artery Occlusion and stenosis of carotid artery without mention of cerebral infarction Peripheral arterial disease (CMS/HCC) Unspecified peripheral vascular disease Benign essential hypertension (CMS/HCC)- Primary Essential hypertension, benign Sinusitis, unspecified chronicity, unspecified location Heartburn Claudication of right lower extremity (CMS/HCC) PVD (peripheral vascular disease) with claudication (CMS/HCC) Unspecified peripheral vascular disease Seasonal allergic rhinitis due to pollen- Primary Heartburn 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CMS/HCC) Lumbosacral spondylosis without myelopathy Chronic obstructive pulmonary disease, unspecified COPD type (CMS/HCC) Acute cystitis without hematuria- Primary Seasonal allergic rhinitis due to pollen Other thrombophilia Malignant neoplasm of prostate (CMS/HCC) Malignant neoplasm of prostate Benign essential hypertension (CMS/HCC) Essential hypertension, benign Other chronic pain- Primary Primary insomnia Persistent disorder of initiating or maintaining sleep Seasonal allergic rhinitis due to pollen Encounter for vaccination Phantom limb pain (CMS/HCC) Phantom limb (syndrome) Seasonal allergic rhinitis due to pollen Unspecified chronic bronchitis (CMS/HCC) Unspecified chronic bronchitis Chronic diastolic (congestive) heart failure Atherosclerosis of [place] arteries of extremities with rest pain, unspecified extremity (CMS/HCC) Other complications of amputation stump Acquired absence of left foot (CMS/HCC) Acquired absence of unspecified foot (CMS/HCC) 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) 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 (CMS/HCC) Bronchiectasis, uncomplicated (CMS/HCC) Phantom limb syndrome with pain (CMS/HCC) Phantom limb (syndrome) Chronic obstructive pulmonary disease, unspecified Malignant neoplasm of prostate (CMS/HCC) Malignant neoplasm of prostate Pulmonary hypertension, unspecified (CMS/HCC) Dysuria- Primary History of prostate cancer Personal history of malignant neoplasm of prostate Urinary hesitancy Right-sided low back pain without sciatica, unspecified chronicity documented in this encounter [facility] HealthcareEvaluation note* Diagnosis Phantom limb pain (HCC)- Primary Phantom limb (syndrome) Lumbosacral spondylosis without myelopathy Abdominal aortic aneurysm (AAA) without rupture, unspecified part Benign essential hypertension Essential hypertension, benign Routine general medical examination at health care facility- Primary Routine general medical examination at a health care facility Hypercholesteremia Pure hypercholesterolemia Flu vaccine need Benign essential hypertension Essential hypertension, benign Nausea Nausea alone Stenosis of right carotid artery Occlusion and stenosis of carotid artery without mention of cerebral infarction Peripheral arterial disease Unspecified peripheral vascular disease Benign essential hypertension- Primary Essential hypertension, benign Sinusitis, unspecified chronicity, unspecified location Heartburn Claudication of right lower extremity PVD (peripheral vascular disease) with claudication Unspecified peripheral vascular disease Seasonal allergic rhinitis due to pollen- Primary Heartburn 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HCC) Lumbosacral spondylosis without myelopathy Chronic obstructive pulmonary disease, unspecified COPD type (HCC) Acute cystitis without hematuria- Primary Seasonal allergic rhinitis due to pollen Other thrombophilia (HHS-HCC) Malignant neoplasm of prostate (HCC) Malignant neoplasm of prostate Benign essential hypertension Essential hypertension, benign Other chronic pain- Primary Primary insomnia Persistent disorder of initiating or maintaining sleep Seasonal allergic rhinitis due to pollen Encounter for vaccination Phantom limb pain (HCC) Phantom limb (syndrome) Seasonal allergic rhinitis due to pollen Unspecified chronic bronchitis (HCC) Unspecified chronic bronchitis Chronic diastolic (congestive) heart failure (HCC) Atherosclerosis of [place] arteries of extremities with rest pain, unspecified extremity (CMS-HCC) Other complications of amputation stump (HCC) Acquired absence of left foot (HCC) Acquired absence of unspecified foot (HCC) 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) 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 (HCC) Bronchiectasis, uncomplicated (HCC) Phantom limb syndrome with pain (HCC) Phantom limb (syndrome) Chronic obstructive pulmonary disease, unspecified (HCC) Malignant neoplasm of prostate (HCC) Malignant neoplasm of prostate Pulmonary hypertension, unspecified (HCC) Primary insomnia Persistent disorder of initiating or maintaining sleep Other chronic pain Lumbosacral spondylosis without myelopathy documented in this encounter [facility] HealthcareEvaluation note* Diagnosis Ischemic foot- Primary PAD (peripheral artery disease) (HCC) Unspecified peripheral vascular disease Critical lower limb ischemia (HCC) Unspecified circulatory system disorder Critical lower limb ischemia (HCC) Unspecified circulatory system disorder Coronary artery disease involving coronary bypass graft of [place] heart without angina pectoris Hypercholesteremia Pure hypercholesterolemia Class 1 obesity with body mass index (BMI) of 31.0 to 31.9 in adult Pain of left lower extremity Community acquired pneumonia of left lower lobe of lung- Primary Community acquired pneumonia of left lower lobe of lung Elevated troponin Other abnormal blood chemistry Peripheral edema Edema Hematoma of arm, left, initial encounter PAD (peripheral artery disease) (HCC) Unspecified peripheral vascular disease PVD (peripheral vascular disease)- Primary Unspecified peripheral vascular disease [facility] Diagnosis Ischemic foot- Primary PAD (peripheral artery disease) (HCC) Unspecified peripheral vascular disease Critical lower limb ischemia (HCC) Unspecified circulatory system disorder Critical lower limb ischemia (HCC) Unspecified circulatory system disorder Coronary artery disease involving coronary bypass graft of [place] heart without angina pectoris Hypercholesteremia Pure hypercholesterolemia Class 1 obesity with body mass index (BMI) of 31.0 to 31.9 in adult Community acquired pneumonia of left lower lobe of lung- Primary Community acquired pneumonia of left lower lobe of lung Elevated troponin Other abnormal blood chemistry Peripheral edema Edema Hematoma of arm, left, initial encounter PAD (peripheral artery disease) ([facility]) Unspecified peripheral vascular disease Acute pain of right lower extremity- Primary [facility] Diagnosis Ischemic foot- Primary PAD (peripheral artery disease) ([facility]) Unspecified peripheral vascular disease Critical lower limb ischemia (HCC) Unspecified circulatory system disorder Hypercholesteremia Pure hypercholesterolemia Class 1 obesity with body mass index (BMI) of 31.0 to 31.9 in adult Community acquired pneumonia of left lower lobe of lung- Primary Community acquired pneumonia of left lower lobe of lung Elevated troponin Other abnormal blood chemistry Peripheral edema Edema Hematoma of arm, left, initial encounter PAD (peripheral artery disease) ([facility])- Primary Unspecified peripheral vascular disease Claudication Unspecified peripheral vascular disease Right leg pain Pain in soft tissues of limb Peripheral artery disease PAD (peripheral artery disease) ([facility]) Unspecified peripheral vascular disease Carotid stenosis, asymptomatic, bilateral Posterior tibial tendinitis of right leg Hematoma of arm, left, initial encounter Community acquired pneumonia of left lower lobe of lung Pulmonary nodule Other diseases of lung, not elsewhere classified Gangrene of left foot (HCC) Acute pain of right lower extremity Essential hypertension Unspecified essential hypertension Hypercholesteremia Pure hypercholesterolemia Coronary artery disease involving coronary bypass graft of [place] heart without angina pectoris Critical lower limb ischemia (HCC) Unspecified circulatory system disorder Critical lower limb ischemia (HCC) Unspecified circulatory system disorder Coronary artery disease involving coronary bypass graft of [place] heart without angina pectoris Carotid stenosis, asymptomatic, bilateral [facility] Diagnosis Phantom limb pain (HCC)- Primary Phantom limb (syndrome) Lumbosacral spondylosis without myelopathy Abdominal aortic aneurysm (AAA) without rupture, unspecified part Benign essential hypertension Essential hypertension, benign Routine general medical examination at health care facility- Primary Routine general medical examination at a health care facility Hypercholesteremia Pure hypercholesterolemia Flu vaccine need Benign essential hypertension Essential hypertension, benign Nausea Nausea alone Stenosis of right carotid artery Occlusion and stenosis of carotid artery without mention of cerebral infarction Peripheral arterial disease Unspecified peripheral vascular disease Benign essential hypertension- Primary Essential hypertension, benign Sinusitis, unspecified chronicity, unspecified location Heartburn Claudication of right lower extremity PVD (peripheral vascular disease) with claudication Unspecified peripheral vascular disease Seasonal allergic rhinitis due to pollen- Primary Heartburn 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HCC) Lumbosacral spondylosis without myelopathy Chronic obstructive pulmonary disease, unspecified COPD type (HCC) Acute cystitis without hematuria- Primary Seasonal allergic rhinitis due to pollen Other thrombophilia ([facility]) Malignant neoplasm of prostate (HCC) Malignant neoplasm of prostate Benign essential hypertension Essential hypertension, benign Other chronic pain- Primary Primary insomnia Persistent disorder of initiating or maintaining sleep Seasonal allergic rhinitis due to pollen Encounter for vaccination Phantom limb pain (HCC) Phantom limb (syndrome) Seasonal allergic rhinitis due to pollen Unspecified chronic bronchitis (HCC) Unspecified chronic bronchitis Chronic diastolic (congestive) heart failure (HCC) Atherosclerosis of [place] arteries of extremities with rest pain, unspecified extremity (CMS-HCC) Other complications of amputation stump (HCC) Acquired absence of left foot (HCC) Acquired absence of unspecified foot (HCC) 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) 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 (HCC) Bronchiectasis, uncomplicated (HCC) Phantom limb syndrome with pain (HCC) Phantom limb (syndrome) Chronic obstructive pulmonary disease, unspecified (HCC) Malignant neoplasm of prostate (HCC) Malignant neoplasm of prostate Pulmonary hypertension, unspecified (HCC) PVD (peripheral vascular disease) with claudication Unspecified peripheral vascular disease History of prostate cancer Personal history of malignant neoplasm of prostate Urinary hesitancy documented in this encounter [facility] HealthcareEvaluation note* Diagnosis Ischemic foot- Primary PAD (peripheral artery disease) (HCC) Unspecified peripheral vascular disease Critical lower limb ischemia (HCC) Unspecified circulatory system disorder Hypercholesteremia Pure hypercholesterolemia Class 1 obesity with body mass index (BMI) of 31.0 to 31.9 in adult Community acquired pneumonia of left lower lobe of lung- Primary Community acquired pneumonia of left lower lobe of lung Elevated troponin Other abnormal blood chemistry Peripheral edema Edema Hematoma of arm, left, initial encounter PAD (peripheral artery disease) (HCC)- Primary Unspecified peripheral vascular disease Claudication Unspecified peripheral vascular disease Right leg pain Pain in soft tissues of limb Peripheral artery disease PAD (peripheral artery disease) (HCC) Unspecified peripheral vascular disease Carotid stenosis, asymptomatic, bilateral Posterior tibial tendinitis of right leg Hematoma of arm, left, initial encounter Community acquired pneumonia of left lower lobe of lung Pulmonary nodule Other diseases of lung, not elsewhere classified Gangrene of left foot (HCC) Acute pain of right lower extremity Essential hypertension Unspecified essential hypertension Hypercholesteremia Pure hypercholesterolemia Coronary artery disease involving coronary bypass graft of [place] heart without angina pectoris Critical lower limb ischemia (HCC) Unspecified circulatory system disorder Critical lower limb ischemia (HCC) Unspecified circulatory system disorder Coronary artery disease involving coronary bypass graft of [place] heart without angina pectoris Carotid stenosis, asymptomatic, bilateral Critical lower limb ischemia (HCC)- Primary Unspecified circulatory system disorder [facility] Diagnosis Phantom limb pain (HCC)- Primary Phantom limb (syndrome) Lumbosacral spondylosis without myelopathy Abdominal aortic aneurysm (AAA) without rupture, unspecified part Benign essential hypertension Essential hypertension, benign Routine general medical examination at health care facility- Primary Routine general medical examination at a health care facility Hypercholesteremia Pure hypercholesterolemia Flu vaccine need Benign essential hypertension Essential hypertension, benign Nausea Nausea alone Stenosis of right carotid artery Occlusion and stenosis of carotid artery without mention of cerebral infarction Peripheral arterial disease Unspecified peripheral vascular disease Benign essential hypertension- Primary Essential hypertension, benign Sinusitis, unspecified chronicity, unspecified location Heartburn Claudication of right lower extremity PVD (peripheral vascular disease) with claudication Unspecified peripheral vascular disease Seasonal allergic rhinitis due to pollen- Primary Heartburn 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HCC) Lumbosacral spondylosis without myelopathy Chronic obstructive pulmonary disease, unspecified COPD type (HCC) Acute cystitis without hematuria- Primary Seasonal allergic rhinitis due to pollen Other thrombophilia ([facility]HS-HCC) Malignant neoplasm of prostate (HCC) Malignant neoplasm of prostate Benign essential hypertension Essential hypertension, benign Other chronic pain- Primary Primary insomnia Persistent disorder of initiating or maintaining sleep Seasonal allergic rhinitis due to pollen Encounter for vaccination Phantom limb pain (HCC) Phantom limb (syndrome) Seasonal allergic rhinitis due to pollen Unspecified chronic bronchitis (HCC) Unspecified chronic bronchitis Chronic diastolic (congestive) heart failure (HCC) Atherosclerosis of [place] arteries of extremities with rest pain, unspecified extremity (CMS-HCC) Other complications of amputation stump (HCC) Acquired absence of left foot (HCC) Acquired absence of unspecified foot (HCC) 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) 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 (HCC) Bronchiectasis, uncomplicated (HCC) Phantom limb syndrome with pain (HCC) Phantom limb (syndrome) Chronic obstructive pulmonary disease, unspecified (HCC) Malignant neoplasm of prostate (HCC) Malignant neoplasm of prostate Pulmonary hypertension, unspecified (HCC) PVD (peripheral vascular disease) with claudication Unspecified peripheral vascular disease History of prostate cancer Personal history of malignant neoplasm of prostate Urinary hesitancy PVD (peripheral vascular disease) with claudication- Primary Unspecified peripheral vascular disease Acquired absence of left foot (HCC) Ischemic toe ulcer, right, with 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) documented in this encounter [facility] HealthcareEvaluation note* Diagnosis Phantom limb pain (HCC)- Primary Phantom limb (syndrome) Lumbosacral spondylosis without myelopathy Abdominal aortic aneurysm (AAA) without rupture, unspecified part Benign essential hypertension Essential hypertension, benign Routine general medical examination at health care facility- Primary Routine general medical examination at a health care facility Hypercholesteremia Pure hypercholesterolemia Flu vaccine need Benign essential hypertension Essential hypertension, benign Nausea Nausea alone Stenosis of right carotid artery Occlusion and stenosis of carotid artery without mention of cerebral infarction Peripheral arterial disease Unspecified peripheral vascular disease Benign essential hypertension- Primary Essential hypertension, benign Sinusitis, unspecified chronicity, unspecified location Heartburn Claudication of right lower extremity PVD (peripheral vascular disease) with claudication Unspecified peripheral vascular disease Seasonal allergic rhinitis due to pollen- Primary Heartburn 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HCC) Lumbosacral spondylosis without myelopathy Chronic obstructive pulmonary disease, unspecified COPD type (HCC) Acute cystitis without hematuria- Primary Seasonal allergic rhinitis due to pollen Other thrombophilia (HHS-HCC) Malignant neoplasm of prostate (HCC) Malignant neoplasm of prostate Benign essential hypertension Essential hypertension, benign Other chronic pain- Primary Primary insomnia Persistent disorder of initiating or maintaining sleep Seasonal allergic rhinitis due to pollen Encounter for vaccination Phantom limb pain (HCC) Phantom limb (syndrome) Seasonal allergic rhinitis due to pollen Unspecified chronic bronchitis (HCC) Unspecified chronic bronchitis Chronic diastolic (congestive) heart failure (HCC) Atherosclerosis of [place] arteries of extremities with rest pain, unspecified extremity (CMS-HCC) Other complications of amputation stump (HCC) Acquired absence of left foot (HCC) Acquired absence of unspecified foot (HCC) 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) 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 (HCC) Bronchiectasis, uncomplicated (HCC) Phantom limb syndrome with pain (HCC) Phantom limb (syndrome) Chronic obstructive pulmonary disease, unspecified (HCC) Malignant neoplasm of prostate (HCC) Malignant neoplasm of prostate Pulmonary hypertension, unspecified (HCC) PVD (peripheral vascular disease) with claudication Unspecified peripheral vascular disease History of prostate cancer Personal history of malignant neoplasm of prostate Urinary hesitancy PVD (peripheral vascular disease) with claudication- Primary Unspecified peripheral vascular disease Ischemic toe ulcer, right, with 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) Osteomyelitis of right foot, unspecified type (HCC) documented in [facility] encounter [facility] N[facility] - Reported* Type Description Date Medical History PAD Medical History hypertension Medical History This 82-year-old irina bazan has a long history of peripheral vascular occlusive disease but has never been seen by us in the past. In 2019 he presented with limb threatening ischemia of his left leg and was initially treated in [place]. When he was offered left above-knee amputation he got a second opinion in [place] and had a bypass on his left leg using contralateral right greater saphenous vein. He then had a very high midfoot amputation which went on to heal. He has always had some neuropathic pain in the left foot but recently this is worsened. He has difficulty taking Neurontin which causes him blurred vision. He has not had any recent follow-up for his left leg bypass in over a year. His right foot for the past several months has been hurting more and he now describes early ischemic rest pain. He feels like there is a ball underneath his foot and there is constant pain. This wakes him up at night. He does not have any open wounds of the right foot at this time. He remains on a baby aspirin and low-dose Xarelto. Risk factors for vascular disease include hypertension, hypercholesterolemia, coronary artery disease with previous coronary bypass graft in 2017 using his left leg vein after 7 prior coronary stents. He had prostate cancer in the past treated with seed implantation with a good outcome. He has had a cervical spine fusion in the past. He had a right total hip replacement. Surgical History heart bypass surgery Surgical History Neck Surgery Surgical History carpal tunnel releaseRIGHT Surgical History cataract removal Surgical History prostate biopsy Surgical History right hip replacement Surgical History LEFT METARSAL AMPUTATION Hospitalization History See Above Path Other Hospital Discharge instructions No data available for this section [facility] Hospital Discharge instructions* Attachments The following attachments cannot be sent through Care Everywhere. * Pneumonia ([place]) [facility]: Hospital Discharge instructions* Attachments The following attachments cannot be sent through Care Everywhere. * Pneumonia ([place]) [facility]: Hospital Discharge instructions Additional Instructions DISCHARGE INSTRUCTIONS FOR ANGIOGRAM, ANGIOPLASTY, STENT PLACEMENT FIRST TWO (2) DAYS AFTER DISCHARGE: -Take it easy at home, no strenuous activity. -Do not lift or pull objects over 10 pounds, including children and groceries (10 pounds = 1 gallon milk). -May shower tomorrow. -No excessive scrubbing of affected groin or arm. -May drive car unless you had sedation for the procedure, then you cannot drive for 24 hours. CALL [name at #] OR [facility] AT [phone]: -If excessive bleeding should occur from the puncture site, immediately apply pressure to the site and call 911. -Report any fever, redness, drainage, increased swelling, or firmness at catheter site insertion. Some bruising or slight swelling may be present and this is normal. -Should the arm or leg become cold, numb, white, or blue - go to the nearest emergency room. MEDICATIONS -Follow instructions on the discharge medication sheet regarding your medications. -[Do NOT take any Metformin containing medications for the next two days: ActoPlusMet, ActoPlusMet XR, Avandamet, Fortamet, Glucophage, Glucophage XR, Glucovance, Glumetza, Janumet, Janumet XR, Jentadueto, Kombiglyze XR, Metaglip, Metformin, PrandiMet, Riomet.] FOLLOW UP/OTHER INSTRUCTIONS [ ][facility] Work Phone: Progress note No data available for this section [facility] reason for referral (narrative)No reason for referral information [facility] Work [facility]: Summary Purpose Family History Relationship Condition Age at Onset Recorded Date/T markell father Heart disease Unknown Unknown family member Unknown Not Specified Unknown Heart disease Unknown Relationship Condition Age at Onset Recorded Date/T markell father Heart disease Unknown Unknown family member Unknown mother Unknown Heart disease Unknown Advance Directives Latest Code Status on File Code Status Date Activated Date Inactivated Comments Full Code 09/05/2018 3:43 PM Full Code 09/05/2018 11:32 AM 09/05/2018 3:43 PM Full Code 09/04/2018 9:18 PM 09/05/2018 11:32 AM Latest Code Status on File Code Status Date Activated Date Inactivated Comments Full Code 09/05/2018 3:43 PM Full Code 09/05/2018 11:32 AM 09/05/2018 3:43 PM Full Code 09/04/2018 9:18 PM 09/05/2018 11:32 AM Latest Code Status on File Code Status Date Activated Date Inactivated Comments Full Code - Unverified 10/04/2018 3:40 PM Full Code 09/05/2018 3:43 PM 10/04/2018 3:00 PM Latest Code Status on File Code Status Date Activated Date Inactivated Comments Full Code - Unverified 10/08/2018 8:41 AM Full Code - Unverified 10/04/2018 3:40 PM 10/08/2018 8:41 AM Full Code 09/05/2018 3:43 PM 10/04/2018 3:00 PM Latest Code Status on File Code Status Date Activated Date Inactivated Comments Full Code - Unverified 10/08/2018 8:41 AM Full Code - Unverified 10/04/2018 3:40 PM 10/08/2018 8:41 AM Documents on File Type Date Recorded Patient Building Supervisor Expl anation Advance Directives and Living Will 03/18/2019 9:27 AM LW only Power of Seconds Inspector 10/13/2018 9:03 PM RECEI SKIP 10/13/2018 Documents on File Type Date Recorded Patient Building Supervisor Expl anation Advance Directives and Living Will 03/18/2019 9:27 AM LW only Power of Seconds Inspector 10/13/2018 9:03 PM RECEI SKIP 10/13/2018 Documents on File Type Date Recorded Patient Building Supervisor Expl anation Advance Directives and Living Will 10/21/2019 1:25 PM LW only Power of Seconds Inspector 10/13/2018 9:03 PM RECEI SKIP 10/13/2018 Documents on File Type Date Recorded Patient Building Supervisor Expl anation Advance Directives and Living Will 10/21/2019 1:25 PM LW only Power of Seconds Inspector 10/13/2018 9:03 PM RECEI SKIP 10/13/2018 Documents on File Type Date Recorded Patient Building Supervisor Expl anation Advance Directives and Living Will 03/13/2019 10:08 AM LW only Power of Seconds Inspector 10/13/2018 9:03 PM RECEI SKIP 10/13/2018 Documents on File Type Date Recorded Patient Building Supervisor Expl anation Advance Directives and Living Will 03/13/2019 10:08 AM LW only Power of Seconds Inspector 10/13/2018 9:03 PM RECEI SKIP 10/13/2018 Latest Code Status on File Code Status Date Activated Date Inactivated Comments Full Code 07/15/2021 2:40 PM Full Code 09/03/2018 11:29 AM 07/15/2021 2:40 PM Full Code 09/01/2011 7:48 AM 09/04/2011 4:13 PM Documents on File Type Date Recorded Patient Building Supervisor Expl anation Power of Seconds Inspector 10/13/2018 9:03 PM RECEI SKIP 10/13/2018 Documents on File Type Date Recorded Patient Building Supervisor Expl anation Power of Seconds Inspector 10/13/2018 9:03 PM RECEI SKIP 10/13/2018 Latest Code Status on File Code Status Date Activated Date Inactivated Comments Full Code 01/19/2022 12:09 AM 01/21/2022 5:56 PM Full Code - Unverified 10/08/2018 8:41 AM 01/18/2022 8:3 7 PM Latest Code Status on File Date Activated Date Inactivated Comments 01/19/2022 12:09 AM 01/21/2022 5:56 PM Full Code - Unverified Date Activated Date Inactivated Comments 10/08/2018 8:41 AM 01/18/2022 8:37 PM Full Code - Unverified Date Activated Date Inactivated Comments 10/04/2018 3:40 PM 10/08/2018 8:41 AM Full Code Date Activated Date Inactivated Comments 09/05/2018 3:43 PM 10/04/2018 3:00 PM Full Code Date Activated Date Inactivated Comments 09/05/2018 11:32 AM 09/05/2018 3:43 PM Latest Code Status on File Date Activated Date Inactivated Comments 04/15/2022 12:22 AM 04/15/2022 10:55 PM Full Code Date Activated Date Inactivated Comments 01/19/2022 12:09 AM 01/21/2022 5:56 PM Advance Directive Response Recorded Date/ Time Advance Directives No April 25, 2017 12:36pm Latest Code Status on File Date Activated Date Inactivated Comments 04/15/2022 12:22 AM 04/15/2022 10:55 PM Full Code Date Activated Date Inactivated Comments 01/19/2022 12:09 AM 01/21/2022 5:56 PM Full Code - Unverified Date Activated Date Inactivated Comments 10/08/2018 8:41 AM 01/18/2022 8:37 PM Full Code - Unverified Date Activated Date Inactivated Comments 10/04/2018 3:40 PM 10/08/2018 8:41 AM Full Code Date Activated Date Inactivated Comments 09/05/2018 3:43 PM 10/04/2018 3:00 PM Latest Code Status on File Code Status Date Activated Date Inactivated Comments Full Code 07/15/2021 2:40 PM Code Status History Code Status Date Activated Date Inactivated Comments Full Code 09/03/2018 11:29 AM 07/15/2021 2:40 PM Full Code 09/01/2011 7:48 AM 09/04/2011 4:13 PM Latest Code Status on File Code Status Date Activated Date Inactivated Comments Full Code - Unverified 04/15/2022 12:22 AM 04/15/2022 10 :55 PM Code Status History Code Status Date Activated Date Inactivated Comments Full Code 01/19/2022 12:09 AM 01/21/2022 5:56 PM Full Code - Unverified 10/08/2018 8:41 AM 01/18/2022 8:3 7 PM Full Code - Unverified 10/04/2018 3:40 PM 10/08/2018 8:41 AM Full Code 09/05/2018 3:43 PM 10/04/2018 3:00 PM Latest Code Status on File Code Status Date Activated Date Inactivated Comments Full Code 11/03/2022 10:28 PM 11/08/2022 4:33 PM Code Status History Code Status Date Activated Date Inactivated Comments Full Code - Unverified 04/15/2022 12:22 AM 04/15/2022 10 :55 PM Full Code 01/19/2022 12:09 AM 01/21/2022 5:56 PM Full Code - Unverified 10/08/2018 8:41 AM 01/18/2022 8:3 7 PM Full Code - Unverified 10/04/2018 3:40 PM 10/08/2018 8:41 AM Latest Code Status on File Code Status Date Activated Date Inactivated Comments Full Code 11/03/2022 10:28 PM 11/08/2022 4:33 PM Code Status History Code Status Date Activated Date Inactivated Comments Full Code - Unverified 04/15/2022 12:22 AM 04/15/2022 10 :55 PM Full Code 01/19/2022 12:09 AM 01/21/2022 5:56 PM Full Code - Unverified 10/08/2018 8:41 AM 01/18/2022 8:3 7 PM Full Code - Unverified 10/04/2018 3:40 PM 10/08/2018 8:41 AM Advance Directive Response Recorded Date/ Time Advance Directives No April 25, 2017 11:36am Date Activated Date Inactivated Comments 11/03/2022 10:28 PM 11/08/2022 4:33 PM Date Activated Date Inactivated Comments 04/15/2022 12:22 AM 04/15/2022 10:55 PM Date Activated Date Inactivated Comments 01/19/2022 12:09 AM 01/21/2022 5:56 PM Date Activated Date Inactivated Comments 10/08/2018 8:41 AM 01/18/2022 8:37 PM Date Activated Date Inactivated Comments 10/04/2018 3:40 PM 10/08/2018 8:41 AM Date Activated Date Inactivated Comments 11/03/2022 10:28 PM 11/08/2022 4:33 PM Date Activated Date Inactivated Comments 04/15/2022 12:22 AM 04/15/2022 10:55 PM Date Activated Date Inactivated Comments 01/19/2022 12:09 AM 01/21/2022 5:56 PM Date Activated Date Inactivated Comments 10/08/2018 8:41 AM 01/18/2022 8:37 PM Date Activated Date Inactivated Comments 10/04/2018 3:40 PM 10/08/2018 8:41 AM Advance Directive Response Recorded Date/ Time Advance Directives No July 29, 2024 12:45pm Date Activated Date Inactivated Comments 03/14/2025 2:54 PM Date Activated Date Inactivated Comments 11/03/2022 10:28 PM 11/08/2022 4:33 PM Date Activated Date Inactivated Comments 04/15/2022 12:22 AM 04/15/2022 10:55 PM Date Activated Date Inactivated Comments 01/19/2022 12:09 AM 01/21/2022 5:56 PM Date Activated Date Inactivated Comments 10/08/2018 8:41 AM 01/18/2022 8:37 PM Date Activated Date Inactivated Comments 03/14/2025 5:44 PM Date Activated Date Inactivated Comments 03/14/2025 2:54 PM 03/14/2025 5:44 PM Date Activated Date Inactivated Comments 11/03/2022 10:28 PM 11/08/2022 4:33 PM Date Activated Date Inactivated Comments 04/15/2022 12:22 AM 04/15/2022 10:55 PM Date Activated Date Inactivated Comments 01/19/2022 12:09 AM 01/21/2022 5:56 PM Date Activated Date Inactivated Comments 03/14/2025 5:44 PM 03/21/2025 8:44 PM Date Activated Date Inactivated Comments 03/14/2025 2:54 PM 03/14/2025 5:44 PM Date Activated Date Inactivated Comments 11/03/2022 10:28 PM 11/08/2022 4:33 PM Date Activated Date Inactivated Comments 04/15/2022 12:22 AM 04/15/2022 10:55 PM Date Activated Date Inactivated Comments 01/19/2022 12:09 AM 01/21/2022 5:56 PM Date Activated Date Inactivated Comments 03/14/2025 5:44 PM 03/21/2025 8:44 PM Reason for Referral Status Reason Specialty Diagnoses / Procedures Referred By Contact Referred To Contact [facility] Diagnoses Ischemic foot Critical lower limb ischemia Rojelio Woody MD [address] [facility] Tim John [address] [place] [address] Status Reason Specialty Diagnoses / Procedures Referred By Contact Referred To Contact Pending Review Cardiology Diagnoses 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) S/P bypass graft of extremity Procedures US Doppler ankle/brachial index Segmental doppler lower extremity arterial Walker, Mohsen De Oliveira MD [address] [place], [place] [address] [address] [place] [phone] Status Reason Specialty Diagnoses / Procedures Referred By Contact Referred To Contact Pending Review Cardiology Diagnoses Bilateral carotid artery stenosis Procedures Carotid Duplex Mohsen Saarbia MD [address] [place] [address] [place] [address] Status Reason Specialty Diagnoses / Procedures Referred By Contact Referred To Contact Pending Review Cardiology Diagnoses Atherosclerosis of [place] arteries of the extremities with ulceration (HCC) S/P bypass graft of extremity Procedures Ultrasound ankle / brachial indices extremity complete Mohsen Sarabia MD [address] [place] [address] [place] [address] Status Reason Specialty Diagnoses / Procedures Referre d By Contact Referred To Contact Closed Radiology Diagnoses S/P bypass graft of extremity PAD (peripheral artery disease) (HCC) Atherosclerosis of [place] arteries of the extremities with ulceration (HCC) Procedures CT Angiogram Abdominal Aorta With Lower Extremity Mohsen Sarabia MD [address] [place] [address] [place] [address] Status Reason Specialty Diagnoses / Procedures Referred By Contact Referred To Contact Closed Cardiology Diagnoses Bilateral carotid artery stenosis Procedures Carotid Duplex Mohsen Sarabia MD [address] [place], [place] [id number] Status Reason Specialty Diagnoses / Procedures Referre d By Contact Referred To Contact Closed Cardiology Diagnoses Atherosclerosis of [place] arteries of the extremities with ulceration (HCC) Procedures Ultrasound ankle / brachial indices extremity complete Mohsen Sarabia MD [address] [place] [address] [place] [address] Status Reason Specialty Diagnoses / Procedures Referred By Contact Referred To Contact Pending Review Cardiology Diagnoses Atherosclerosis of [place] artery of left lower extremity with rest pain (HCC) S/P bypass graft of extremity Procedures Ultrasound duplex arterial leg left Mohsen Sarabia MD [address] [facility] [address] [place] [address] Status Reason Specialty Diagnoses / Procedures Referred By Contact Referred To Contact Authorized Cardiology Diagnoses Bilateral carotid artery stenosis Procedures Carotid Duplex Mohsen Sarabia MD 35[address] [facility] [address] [place] [address] Status Reason Specialty Diagnoses / Procedures Referred By Contact Referred To Contact Authorized Cardiology Diagnoses PAD (peripheral artery disease) ([facility]) Procedures Ultrasound ankle / brachial indices extremity complete Mohsen Sarabia MD [facility] [address] [place] [id number] Status Reason Specialty Diagnoses / Procedures Referred By Contact Referred To Contact Authorized Cardiology Diagnoses PAD (peripheral artery disease) ([facility]) Procedures Ultrasound duplex arterial leg left Mohsen Sarabia MD [facility]5 [facility] [address] [place] [address] Specialty Diagnoses / Procedures Referred By Contac t Referred To Contact Physical Therapy Diagnoses Pain in prosthetic joint, subsequent encounter Dashawn Silvestre MD [address] [place] [address] [facility] [address] [address] Referral ID Status Reason Start Date Expiration Date V isits Requested Visits Authorized [id number] New Request 11/24/2021 12/19/2022 1 1 Specialty Diagnoses / Procedures Referred By Contac t Referred To Contact Diagnoses Pain in prosthetic joint, subsequent encounter Procedures XR HIP WITH PELVIS RIGHT Dashawn Silvestre MD [address] [place] [address] Referral ID Status Reason Start Date Expiration Date V isits Requested Visits Authorized [id number] New Request 11/19/2021 12/14/2022 1 1 Specialty Diagnoses / Procedures Referred By Contac t Referred To Contact Diagnoses Hx of total hip arthroplasty, right Procedures XR HIP WITH PELVIS RIGHT Dashawn Silvestre MD [address] [place] [address] Referral ID Status Reason Start Date Expiration Date V isits Requested Visits Authorized [id number] New Request 01/05/2022 01/30/2023 1 1 Specialty Diagnoses / Procedures Referred By Contac t Referred To Contact Pulmonary Disease / Pulmonology Diagnoses Pulmonary nodule Muna Otto MD [address] [facility] [address] [place] [address] Carson Gallagher MD [address] [address] Referral ID Status Reason Start Date Expiration Date Visits Requested Visits Authorized [id number] Pending Review Specialty Services Required/Lucia gonzalez's Best Interest 01/20/2022 01/20/2023 1 1 Specialty Diagnoses / Procedures Referred By Contac t Referred To Contact Radiology Diagnoses Pulmonary nodule Procedures CT Chest Without Contrast Wagner Moon MD [address] [address] Referral ID Status Reason Start Date Expiration Date V isits Requested Visits Authorized [id number] New Request 05/11/2022 05/11/2023 1 1 Specialty Diagnoses / Procedures Referred By Contac t Referred To Contact Cardiology Diagnoses Bilateral carotid artery stenosis Procedures Carotid Duplex Mohsen Sarabia MD [address] [facility] [address] [place] [address] Referral ID Status Reason Start Date Expiration Date V isits Requested Visits Authorized [id number] Authorized 05/25/2022 05/25/2023 1 1 Specialty Diagnoses / Procedures Referred By Contac t Referred To Contact Diagnoses Hx of total hip arthroplasty, right Procedures XR HIP WITH PELVIS RIGHT Scar Ortega, HEALTH PHYSICIST[facility] [address] [place] [address] Referral ID Status Reason Start Date Expiration Date V isits Requested Visits Authorized [id number] New Request 07/06/2022 07/31/2023 1 1 Specialty Diagnoses / Procedures Referred By Contac t Referred To Contact Radiology Diagnoses Community acquired pneumonia of left lower lobe of lung Procedures CT Chest Without Contrast Jose Escalona CNP [address] [place] [address] Referral ID Status Reason Start Date Expiration Date V isits Requested Visits Authorized [id number] New Request 11/08/2022 11/08/2023 1 1 Specialty Diagnoses / Procedures Referred By Contac t Referred To Contact Cardiology Diagnoses PAD (peripheral artery disease) (HCC) Procedures US Duplex Bypass Graft Left LE Mohsen Sarabia MD [address] [place] [address] Referral ID Status Reason Start Date Expiration Date V isits Requested Visits Authorized [id number] Authorized 05/16/2023 05/15/2024 1 1 Specialty Diagnoses / Procedures Referred By Contac t Referred To Contact Cardiology Diagnoses PAD (peripheral artery disease) (HCC) Procedures Ultrasound ankle / brachial indices extremity complete Mohsen Sarabia MD [address] [place] [address] Referral ID Status Reason Start Date Expiration Date V isits Requested Visits Authorized [id number] Authorized 05/16/2023 05/15/2024 1 1 Referral ID Status Reason Start Date Expiration Date V isits Requested Visits Authorized [id number] New Request 08/01/2023 08/25/2024 1 1 Specialty Diagnoses / Procedures Referred By Contac t Referred To Contact Diagnoses Seasonal allergic rhinitis due to pollen Zoë King PA [address] [address] Referral ID Status Reason Start Date Expiration Date V isits Requested Visits Authorized [id number] Pending Review 05/21/2024 11/17/2024 1 1 Hospital Course Note CLINICAL SUMMARY Please take this summary document to your follow up appointments. [facility] 11/29/19 11:09 [address] [facility], [place]. [address] PATIENT INFORMATION Name: TRISTIN POWELL Address: [address] [address] Age: 79 Years Phone: [phone] : 1940 12:[birth year] MRN: [facility])-[id number] Sex: Male Race: White Ethnicity: Not Hispan/Lat Admitted From: Clinic or [facility] Medical Service: Orthopedic Surgery Nurse Unit/Bed: (UT) 2N 0208-01 Admit Date: 11/28/2019 05:01 PCP: Flash Lovelace MD PHYSICIANS INVOLVED WITH CARE Attending Physicians: Ramana Cason MD - Orthopaedic Surg Admitting Physician: Ramana Cason MD - Orthopaedic Surg Primary Care Physician:Flash Lovelace MD,[facility], - Consults: IWONA Wren - Internal Medicine Problems Active Neck pain PVD (peripheral vascula (more content not included)... Discharge Instructions * Discharge Instr - Other Orders* Catalina Woodson RN - 09/05/2018 4:17 PM EST 09-05-18 PROCEDURE(S) PERFORMED: Ultrasound- guided vascular access Aortogram: Abdominal with runoff-bilateral Peripheral Angiography Lower Extremity Angiogram - Left * Discharge Instr - Wound* Maxine Summers RN - 09/10/2018 11:36 AM EST Cleanse the foot with soap and water, patting dry. Apply Adaptic guaze over the main wound and 4th toe. Wrap with a Guaze roll. Change every 2 days and PRN * Discharge [facility] - PHARMACY* Lydia Davis CPhT - 09/04/2018 9:16 PM EST There may be medications on your list that you were prescribed or previously taking but you said you are no longer taking. These medications may still be important for your health. Please discuss these with the person who prescribed the medication(s) to you. * Additional Instructions* Esau Alejandro MD - 09/12/2018 Femoral-Peroneal Bypass Surgery: What to Expect at Home Your Recovery Femoral-tibial bypass is surgery to bypass diseased blood vessels in the lower leg or foot. You will have some pain from the cuts (incisions) the doctor made. The pain usually gets better after about 1 week. Your doctor will give you pain medicine. You can expect your leg to be swollen at first. This is a normal part of recovery and may last 2 or 3 months. You may need to stay in the hospital for 3 to 5 days. You will need to take it easy for 2 to 6 weeks at home. It may take 6 to 12 weeks to fully recover. You will need to have regular checkups with your doctor to make sure the graft is working. This care sheet gives you a general idea about how long it will take for you to recover. But each person recovers at a different pace. Follow the steps below to get better as quickly as possible. How can you care for yourself at home? Activity Rest when you feel tired. Getting enough sleep will help you recover. Try to walk each day or as often as your doctor tells you. Start by walking a little more than you did the day before. Bit by bit, increase the amount you walk. Walking boosts blood flow and helps prevent pneumonia and constipation. Avoid strenuous activities, such as bicycle riding, jogging, weight lifting, or aerobic exercise. Your doctor will tell you when it's okay to do strenuous activity. Ask your doctor when you can drive again. You will probably need to take 2 to 6 weeks off from work. It depends on the type of work you do and how you feel. You may shower, if your doctor okays it. Do not take a bath for the first 2 weeks, or until your doctor tells you it is okay. Diet You can eat your normal diet. If your stomach is upset, try bland, low-fat foods like plain rice, broiled chicken, toast, and yogurt. Drink plenty of fluids (unless your doctor tells you not to). You may notice that your bowel movements are not regular right after your surgery. This is common. You may want to take a fiber supplement every day. If you have not had a bowel movement after a couple of days, ask your doctor about taking a mild laxative. Medicines Your doctor will tell you if and when you can restart your medicines. He or she will also give you instructions about taking any new medicines. If you take blood thinners, such as warfarin (Coumadin), clopidogrel (Plavix), or aspirin, be sure to talk to your doctor. He or she will tell you if and when to start taking those medicines again. Make sure that you understand exactly what your doctor wants you to do. Take your medicines exactly as prescribed. Call your doctor if you think you are having a problem with your medicine. Your doctor may prescribe a blood thinner, such as aspirin, when you go home. This helps prevent blood clots. Be safe with medicines. Take pain medicines exactly as directed. ? If the doctor gave you a prescription medicine for pain, take it as prescribed. ? If you are not taking a prescription pain medicine, ask your doctor if you can take an vzor-bxj-whicdyo medicine. If you think your pain medicine is making you sick to your stomach: ? Take your medicine after meals (unless your doctor has told you not to). ? Ask your doctor for a different pain medicine. If your doctor prescribed antibiotics, take them as directed. Do not stop taking them just because you feel better. You need to take the full course of antibiotics. Incision care If you have bandages on the incisions, follow your doctor's instructions about changing them. If you have strips of tape on the cut (incision) the doctor made, leave the tape on for a week or until it falls off. Wash the area daily with water and pat it dry. Don't use hydrogen peroxide or alcohol, which can slow healing. You may cover the area with a gauze bandage if it weeps or rubs against clothing. Changethe bandage every day. Elevation Prop up your leg on a pillow anytime you sit or lie down during the next 3 days. Try to keep it above the level of your heart. This will help reduce swelling. Follow-up care is a harper part of your treatment and safety. Be sure to make and go to all appointments, and call your doctor if you are having problems. It's also a good idea to know your test resultsand keep a list of the medicines you take. When should you call for help? Call 911 anytime you think you may need emergency care. For example, call if: You passed out (lost consciousness). You have trouble breathing. Call your doctor now or seek immediate medical care if: You have severe pain in your leg, or it becomes cold, pale, blue, tingly, or numb. You have pain that does not get better after you take pain medicine. You have loose stitches, or your incisions come open. You are bleeding a lot from the incisions. You have signs of infection, such as: ? Increased pain, swelling, warmth, or redness. ? Red streaks leading from the incision. ? Pus draining from the incision. ? A fever. You are sick to your stomach or cannot keep fluids down. Watch closely for any changes in your health, and be sure to contact your doctor if: You do not get better as expected. Where can you learn more? Log into your personal health record on [email or web address] and enter H742 in the Education box to learn more about Femoral-Tibial Bypass Surgery: What to Expect at Home. Current as of: March 18, 2018 Content Version: 11.9 4282-9059 [employer]. Care instructions adapted under license by your healthcare professional. If you have questions about a medical condition or this instruction, always ask your healthcare professional. [employer] disclaims any warranty or liability for your use of this information. * Attachments The following attachments cannot be sent through Care Everywhere. * Angiogram: General: Post-op ([place]) in this encounter* Discharge Instr - Other Orders* Kristi Grossman RN - 10/12/2018 6:09 PM EST Printed MAR sent to facility to show last admin times for lovenox and percocet. * Discharge Instr - Care Coordination* Rubi Dominguez LSW - 10/05/2018 6:46 AM EST [employer] P: [phone] F: [phone] * Additional Instructions* Gilbert Guerra DPM - 10/12/2018 FOOT SURGERY, HOME CARE INSTRUCTIONS Keep Dressing Clean, Dry and Intact to the left lower extremity. NON WEIGHTBEARING with assistive device. Please follow these instructions to help minimize swelling and to help insure good healing. Foot and Ankle Care -Go directly home and elevate your feet on the way if possible. -Do not sit with your feet down or crossed for any length of time. This causes the feet to swell and become painful. -Elevate your feet about 6 inches above hip level. Support your feet and legs with pillows. -Before standing, dangle your feet and legs for one full minute over the edge of the chair. This helps to avoid discomfort and dizziness when you rise. -If you have been given a surgical shoe, it is imperative that you wear it whenever you walk. Even to the bathroom. -If you have a SPLINT do not bear any weight on that splint. Use your crutches or walker as directed. -Keep your bandages clean and dry. Do not remove the bandages or inspect the wound. A small amount of blood on the bandage is normal. Comfort and Activity -The amount of discomfort will vary from one patient to another. -Do not use ice if you have neuroplasty unless instructed by your doctor. -Exercise your legs by bending your knees to help circulation. -Have your prescription filled the day of the procedure. Take all medication as directed. If you get a stomach upset, headache, rash or other reaction, discontinue use and call our office right away. -Get plenty of rest with the foot elevated. Drink plenty of fluids. Eat your regular well balanced diet. -Do not use alcohol and tobacco products. They slow healing. Managing Your Pain Safely -Pain medicine and good pain control is important and helps your comfort level while your body heals. It may take days, weeks or even months for your pain to go away completely. -Take pain medicine before your pain becomes severe so you can have better pain relief -For 2 or 3 days, it may help to take pain medicine as often as ordered to keep your pain under better control. Then begin to take less medicine each day until no longer needed. -Do not drive, operate heavy machinery, ride motorcycles or ATV s, drink alcohol, or take other medication that make you tired or sleepy while you are taking narcotic pain medications. -Do not do any dangerous activities while taking pain medicines. They may decrease your ability to make safe decisions. -Do not take pain medications on an empty stomach. This may lead to nausea and vomiting. -Pain medicines often cause constipation. If you have problems with constipation, call your doctor for advice. To Help Prevent a Surgical Site Infection -If you are prescribed antibiotics, take as instructed and do not stop taking the medicine until itis gone. -Washing your hands is very important to prevent the spread of infection! Wash your hands often. You and all your visitors should wash your hands after using the restroom, before and after eating, and before touching any of your incisions. -Wash your hands using soap and warm water for at least 15 seconds. Rub your palms, fingernails, inbetween your fingers, and the backs of your hands. -Keep incision clean and dry Call your doctor right away if: -You should bump or injure your foot -You develop a temperature of greater than 100*F -Your medication does not stop the discomfort -If bandages become tight and/or your toes turn blue -Active drainage arises from the bandages with your foot elevated -Questions or concern * Attachments The following attachments cannot be sent through Care Everywhere. * Foot: Amputation: Post-op ([place]) in this encounter History of Present Illness * Esau Alejandro MD - 09/13/2018 9:03 AM EST VASCULAR SURGERY PROGRESS NOTE 09/13/18 Patient Name: Tristin Powell : 1940 MR #: [id number] Admit Date: [id number] Assessment and Plan: Tristin Powell is a 78 y.o. male with a PMH of PVD s/p LLE angio with stent placement 08/09, prostatecancer, PVD, CAD, HTN and a PSH of L ankle ORIF and thriple CABG in october 2016 with L saphenous vein harvested who presented to [facility] 09/04/2018 as a transfer from [place] for second opinion regarding left lower extremity pain and discoloration Chronic LLE ischemia S/p peroneal femoral bypass 09/07/18 - Regular diet - Rooke boot LLE - ET following, adaptik and gauze EOD - Podiatry following, betadine paint while waitin for demarcation. - Pain and N control - Patient refusing SNF - Podiatry recs doxy for 10 days on d/c, f/u info in AVS - Plan for d/c today - Discussed with Dr. Cornell MARTINEZ. Having persistent foot pain Physical Examination: Vital Signs: BP 147/66 (BP Location: Right arm, Patient Position: Lying) Pulse (!) 103 Temp 99.3 F (37.4 C) (Oral) Resp (!) 19 Ht 6' 2 Wt 111.6 kg (246 lb) SpO2 92% BMI 31.58 kg/m General: awake and alert, no acute distress Head: normocephalic, atraumatic Eyes: no scleral icterus, pupils equal and round Neck: trachea midline, soft Cardiovascular: hemodynamically stable Pulmonary: nonlabored breathing, equal chest rise Abdomen: soft, non-tender, non-distended, no peritoneal signs Extremities: Doppler (+) R PT/DP, L PT Skin: warm, dry and intact Neurological: Sensation improved to LLE but still decreased, motor intact to B/L LE Laboratory and Additional Data Reviewed: Lab Results Component Value Date WBC 9.14 09/13/2018 HGB 8.6 (L) 09/13/2018 HCT 25.4 (L) 09/13/2018 MCV 92.0 09/13/2018 PLT 258 09/13/2018 Lab Results Component Value Date GLUCOSE 117 (H) 09/13/2018 CALCIUM 8.9 09/13/2018 NA 133 (L) 09/13/2018 K 4.0 09/13/2018 CL 101 09/13/2018 BUN 12 09/13/2018 CREATININE 0.56 (L) 09/13/2018 No results found for: ALT, AST, GGT, ALKPHOS, BILITOT Lab Results Component Value Date INR 1.2 (H) 09/13/2018 INR 1.2 (H) 09/12/2018 INR 1.2 (H) 09/11/2018 PROTIME 14.9 (H) 09/13/2018 PROTIME 14.6 (H) 09/12/2018 PROTIME 14.7 (H) 09/11/2018 Imaging Reviewed: US Doppler ankle/brachial index Final Result XR OR Angio Add Final Result XR Fluoroscopy Time Final Result XR Chest 1 View Final Result Stable chest. No acute disease. [facility] Workstation ID: [id number] Saphenous vein mapping, limited Final Result Cardiac Catheterization Final Result Ultrasound duplex arterial leg left Final Result XR Comparison Import Final Result Us Doppler Ankle/brachial Index Result Date: 09/10/2018 Non-Invasive Vascular Patient: SHERRY Bazan [facility] Rec#: [id number] (Age): 1940(78y) Study Date: 09/10/2018 Room#: 8506 Type: Inpatient Sex: M Reading: [place] Reading: Ben Hahn MD, RPVI Referring: Esau Alejandro her: Andre Madrid RDCS/RVT Procedure Info: [id number] Study Quality: Lower Arterial Doppler: adequate __ Diagnosis: I73.9 Peripheral vascular disease, unspecified Lower Arterial Doppler Conclusions Right ankle brachial index indicates moderate peripheral artery dis ease. Toe pressure is 52 mmHg. Left ankle brachial index indicates mild peripheral artery disease. Toe pressure is 0 mmHg. No evidence of small vessel disease noted at the transmetatarsal level in the right foot. Toe brachial index is abnormal. Moderate small vessel disease noted at the transmetatarsal level in the left foot. Toe brachial index is abnormal. The procedure was explained to the patient. The patient voiced understanding. Finding Grids Lower PVR Waveforms Right Left Ankle B B Transmet N B Harper --------- B = Abnormal N = Normal Toe PPG Waveforms Right Left 1st Digit N A Harper --------- N = Normal A = Absent Measurements Right Pressures/Ratios Name Value Units Brachial 154 mmHg Ankle (Posterior Tibial) 96 mmHg Ankle (Dorsalis Pedis) 93 mmHg Toe 52 mmHg YAMILE 0.62 ratio TBI 0.34 ratio Left Pressures/Ratios Name Va lue Units Brachial 150 mmHg Ankle (Posterior Tibial) 75 mmHg Ankle (Dorsalis Pedis) 116 mmHg Toe 0 mmHg YAMILE 0.75 ratio TBI 0 ratio History CAD. Hypertension. PAD. Electronically signed at 09/10/2018 17:30:46 by: Ben Hahn MD, RPVI Esau Alejandro MD General Surgery PGY-1 Pager [phone] *After 5pm, or on weekends, page [phone]* * Rojelio Woody MD - 09/13/2018 8:52 AM EST [facility] 09/13/2018 Tristin Powell 1940 [id number] Assessment/Plan: Tristin Powell is a 78 y.o. male with a history of PVD s/p LLE angio with stent placement 08/09, prostate cancer, PVD, CAD, HTN who presented to [facility] 09/04/2018 as a transfer from [place] for second opinion regarding left lower extremity pain and discoloration that was present two days prior to admit there on 08/30/18. On admit his exam was notable for cool mottled left foot. He was admitted for further work up. 1. Critical LLE Ischemia: Underwent LLE Popliteal stent 08/09/18 in [place], discharged on ASA and xarelto. Returned with worsening ischemia, transferred for second opinion. LLE angiogram 09/05/18 with occluded stent, infrapopliteal stenosis, and severe ASPVD with occluded stent which appeared markedly undersized. No enovascular options therefore s/p left fem to peroneal bypass 09/07/[address] Sarabia (Vascular Surgery). Dr. Mann (critical li/mb) recommended 10 days of doxycyline for underlying cellulitis, follow up in clinic for demarcation prior to planned amputation. Recommended ongoing statin, aspirin and plavix 2. Acute LLE Pain: in the setting of acute limb ischemia. Pain management folllowed. PO pain control with reduced gabapentin, oxycodone 5 mg q6 prn. 3. Opioid induced constipation: No bowel movement since 08/28/18. On narcotics for acute pain. Bowel regimen initiated. Resolved with Mag citrate on admission, worsened and next BM after Movantik. Senthome on bowel regimen. 4. Acute on Chronic Anemia: Unknown baseline. Normocytic. Hb 11.2 on admit. Suspect blood loss frombypass surgery. Hb 7.5 on 09/10/18 s/p 1 unit pRBC on 09/11/18. Hgb stable at 8.1. 5. HTN: per history. Titrate prn. 6. CAD: s/p stents per history. DAPT, high intensity statin and BB continued 7. Obesity: BMI 31, diet and exercise encouraged. 8. DVT Prophylaxis: Heparin SC Current living situation: home, alone Expected Disposition: Up to 5 days, refused rehab. Patient and family request home discharge Estimated discharge date: 09/13/18 Updated family at bedside 09/13/18 Subjective: No acute events overnight, no pain medications yesterday afternoon. Doing well this morning, sleeping but had restless like (likely from being asleep most of yesterday morning. Went over plan of care with daughter at bedside including wound care (as discussed by wound care and critical limb), medications, follow up. All questions answered to the best of my ability. Physical Exam: BP 147/66 (BP Location: Right arm, Patient Position: Lying) Pulse (!) 103 Temp 99.3 F (37.4 C)(Oral) Resp (!) 19 Ht 6' 2 Wt 111.6 kg (246 lb) SpO2 92% BMI 31.58 kg/m General: NAD, resting in bed Eyes: EOMI ENT: neck supple Cardiovascular: Regular rhythm, tachycardic Respiratory: Clear to auscultation, no rhonchi wheezes or rales Gastrointestinal: Soft, non tender Genitourinary: no suprapubic tenderness Musculoskeletal: LLE supportive boot, (rooke boot on side table, patient complaints of it being toohot and painful) Skin: warm Neuro: Awake and alert. No focal deficits. Psych: Mood calm, cooperative Current Medications: aspirin 81 mg Oral Daily atorvastatin 40 mg Oral Nightly clopidogrel 75 mg Oral Daily gabapentin 400 mg Oral Q8H SADIA heparin (porcine) 5,000 Units Subcutaneous Q8H [facility] metoprolol succinate 50 mg Oral Daily naloxegol 12.5 mg Oral Daily polyethylene glycol 17 g Oral Daily senna-docusate 2 tablet Oral BID Labs, Imaging and Studies reviewed: Results from last 7 days Lab Units 09/13/18 0350 09/12/18202009/12/18 1108 WBC K/mcL 9.14 10.20 9.04 HGB g/dL 8.6* 8.9* 8.2* HCT % 25.4* 25.6* 24.2* PLT K/mcL 258 272 246 Results from last 7 days Lab Units 09/13/18 0350 09/12/18 1108 09/11/18 0738 SODIUM mmol/L 133* 129* 131* POTASSIUM mmol/L 4.0 4.7 4.8 CHLORIDE mmol/L 101 97* 95* BICARB mmol/L 24 26 26 BUN mg/dL 12 12 11 CREATININE mg/dL 0.56* 0.78* 0.65* EGFR mL/min/1.73 m2 98 86 93 GLUCOSE mg/dL 117* 142* 114* CALCIUM mg/dL 8.9 8.6 8.9 Results from last 7 days Lab Units 09/13/18 0350 09/12/18 1108 09/11/18 0738 INR 1.2* 1.2* 1.2* * Jagruti Mooney, CMO & PRESIDENT - 09/12/2018 1:57 PM EST Physical Therapy PHYSICAL THERAPY TREATMENT NOTE Skilled Therapy Needs After Discharge Outcomes Measures Prior Function - Basic Mobility Raw Score: 24 Points Prior Function - Basic Mobility % Impaired: AM-PAC - Basic Mobility Raw Score: 10 Points AM-PAC - Basic Mobility % Impaired: 71.92% functionally impaired Activity Tolerance Therapy Precautions Orthotic Devices: Yes Lower Extremity: Left(Rooke boot) Weight Bearing Status: WFL General Rehab Precautions: Fall risk Balance Skilled Intervention: Patient followed 1 step commands 100%. Pt's daughter entered room after patient had already transfered to bedside chair. Pt educated in the benefit of increased upright siting. Pt cued for increased upright posture and maintaining proper body position within walker during stand pivot to chair. Bed Mobility Rolling: Min, Two person assist Supine to Sit: Min, 2 person assist Sit to Supine: (Not assessed, Pt in chair following session.) Skilled Intervention: Step by step sequencing of log roll technique instucted to facilitate increased efficiency and left foot protection. Pt demonstrated modified log roll with assist. Pt moaned in pain throughout motion which increased once patient achieved upright sitting position on EOB. Transfers Sit to Stand: Mod, Two person assist Bed to Chair: Mod, Two person assist Stand Pivot Transfers: Mod, Two person assist Careers Counsellor: Wheeled walker, 2 people, Gait belt Skilled Intervention: Verbal cueing/assist provided for proper hand placement, lateral weight shifting and maintaining left foot NWB during scoot to edge of surface. Pt was able to maintain LLE NWB however c/o increased pain in foot with sitting. During stand pivot from bed to chair the Pt was cuedfor increased upright posture, maintaing body position within walker, LLE extension to limited weight bearing and reaching back for armrest to complete controlled eccentric motion. Upon sitting the patient was reclined with stated decrease of left foot pain. Gait/Locomotion Gait Assistance: Mod, Two person assist Assistive Device: Wheeled walker Distance: 2 Feet Pattern: Step to, L impaired heel strike, L decreased step length, Over reliance on upper extremities, Forward flexed(RLE hope to pattern during sidestepping from bed to chair.) Skilled Intervention: Cueing provided to facilitate increased efficiency, safety and pain management during side stepping from bed to chair with focus on LLE extension, increased upright posture and UE support, walker management and maintaining body position within walker. Exercise Ankle Pumps: x10 BLE Straight Leg Raise: x10 BLE Quad Sets: x10 BLE Glute Sets: x10 BLE Skilled Intervention: Patient instruced for BLE therapeutic exercise in sitting to facilitate increased strength and progression to greaty independence of fuctional activity. 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 This note stands as the current Discharge Summary upon patient discharge from the hospital or completion of Physical Therapy Plan of Care. * Ronnie Warren MD - 09/12/2018 1:41 PM EST Progress Note: [facility] PAIN SERVICE Date: 09/12/2018 Patient name: Tristin Powell Date Of : 1940 Assessment/Plan: Pain of left lower extremity Assessment & Plan -Patient states pain improving, but remains with constipation -Continue Oxycodone 5-10 mg Q4H PRN into this evening and then decrease to Q6H PRN overnight in preparation for DC tomorrow per patient -Continue Gabapentin 400 mg TID -Continue Movantik for opioid induced constipation and hold all other laxatives at that time. Discharge Recommendations -Oxycodone 5-10 mg Q6H PRN for up to a week -Gabapentin 400 mg TID -Miralax daily -Senna 2 tabs BID -Discussed realistic expectations and goals. Being pain free is unlikely during this acute post op period -Will continue to follow and make adjustments as needed -Please call with questions -Presented to [facility] 09/04/2018 as a transfer from [place] for second opinion regarding left lower extremity pain and discoloration that was present two days prior to admit there on 08/30. s/p LLE angio withstent placement 08/09 -NARx reviewed, patient prescribed Gabapentin 200 mg TID (last filled #540 tabs for 90 days 07/12/18) and Percocet 5/325 mg (#28 tabs for 7 days 08/23/18) written by Dr. Flash Lovelace -s/p Peroneal Femoral Bypass 09/07/[address] Sarabia Subjective/Objective: Perpetual Assessment: Tristin Powell is a 78 y.o. y/o male on hospital day 8 as transfer from [place] for second opinion for LLE pain and discoloration. S/p LLE angio with stent placement 08/09/18. HPI: Patient lying in bed appears comfortable, with brother at bedside. States pains are better controlled today and he did have normal stool today. Plans to be discharged tomorrow to home. Discusseddecreasing his Oxycodone. Denies side effects/sedation from current regimen. Chief Complaint: SNOMED CT(R) 1. Ischemic foot ISCHEMIC FOOT 2. PAD (peripheral artery disease) (HCC) PERIPHERAL VASCULAR DISEASE 3. Critical lower limb ischemia CRITICAL LOWER LIMB ISCHEMIA Patient Active Problem List Diagnosis SNOMED CT(R) Critical lower limb ischemia CRITICAL LOWER LIMB ISCHEMIA Coronary artery disease involving coronary bypass graft of [place] heart without angina pectoris ARTERIOSCLEROSIS OF CORONARY ARTERY BYPASS GRAFT Hypercholesteremia HYPERCHOLESTEROLEMIA Essential hypertension ESSENTIAL HYPERTENSION Class 1 obesity with body mass index (BMI) of 31.0 to 31.9 in adult OBESITY Pain of left lower extremity PAIN IN LEFT LOWER LIMB Length of stay: 8 Review of Systems: The following system(s) were reviewed: All other systems reviewed and negative other than HPI. Physical Examination: BP (!) 132/53 (BP Location: Right arm, Patient Position: Sitting) Pulse 97 Temp 98.4 F (36.9 C)(Oral) Resp 16 Ht 6' 2 Wt 111.6 kg (246 lb) SpO2 97% BMI 31.58 kg/m Constitutional: Alert, appears to be comfortable, appears stated age Eyes: conjunctiva/corneas clear, EOM's intact Ears, Nose, Mouth and Throat: No masses, mucosal membrane intact Neck: Symmetrical, trachea midline Respiratory: Respirations unlabored,normal respiratory effort Cardiovascular: Regular rate and rhythm Chest : No tenderness or deformity Gastrointestinal (Abdomen): Soft, non-tender Genitourinary: Not examined Back: Symmetric, no curvature, ROM limited Skin: Skin color, texture wnl, no rashes or lesions Musculoskeletal: LUU x 4, Left foot cool to touch with discoloration of toes Neurologic: Sensation intact, no tremors noted throughout Psych: Pleasant, appropriate affect Intake/Output last 3 shifts: I/O last 3 completed shifts: In: 700 [P.O.:400; Blood:300] Out: 875 [Urine:875] Results/Medications Reviewed 09/12/18 1:41 PM: Laboratory, Microbiology, Cardiology, Medications and Transcriptions Medications: Scheduled Meds: aspirin 81 mg Oral Daily atorvastatin 40 mg Oral Nightly clopidogrel 75 mg Oral Daily gabapentin 400 mg Oral Q8H [facility] heparin (porcine) 5,000 Units Subcutaneous Q8H [facility] metoprolol succinate 50 mg Oral Daily naloxegol 12.5 mg Oral Daily polyethylene glycol 17 g Oral Daily senna-docusate 2 tablet Oral BID Continuous Infusions: PRN Meds: acetaminophen, atropine, bisacodyl, nalOXone AND Notify physician AND naloxone, nitroGLYCERIN, oxyCODONE, oxyCODONE, prochlorperazine (COMPAZINE) injection, sodium chloride 0.9%, sodium chloride 0.9 % LABS: Reviewed Results from last 7 days Lab Units 09/12/18 1108 09/11/18 2331 09/11/18 0738 09/10/18200609/10/18 0610 09/09/18 0746 09/07/18 1431 09/07/18 0758 09/06/18 2219 WBC K/mcL 9.04 -- 7.28 7.13 7.34 -- 6.48 < > -- 5.93 -- HGB g/dL 8.2* 8.1* 8.1* 7.6* 7.5* < > 7.7* < > -- 10.8* -- HCT % 24.2* 20.5* 24.4* 22.2* 22.0* < > 23.0* < > -- 31.6* -- PLT K/mcL 246 -- 249 246 234 -- 207 < > -- 212 -- INR -- -- 1.2* -- 1.2* -- 1.2* < > -- 1.2* -- PTT seconds -- -- -- -- -- -- -- -- 74* 47* 38* SODIUM mmol/L 129* -- 131* -- 134* -- 135 < > -- 135 -- POTASSIUM mmol/L 4.7 -- 4.8 -- 4.6 -- 4.3 < > -- 4.0 -- CHLORIDE mmol/L 97* -- 95* -- 99 -- 99 < > -- 99 -- BUN mg/dL 12 -- 11 -- 12 -- 13 < > -- 9 -- CREATININE mg/dL 0.78* -- 0.65* -- 0.67* -- 0.71* < > -- 0.69* -- GLUCOSE mg/dL 142* -- 114* -- 116* -- 111* < > -- 110* -- CALCIUM mg/dL 8.6 -- 8.9 -- 8.9 -- 8.9 < > -- 9.4 -- < > = values in this interval not displayed. Assessment Detail: The total time spent for this visit was 30 minutes. Greater than 50% of the time was spent in counseling and coordination of care regarding pain and plan of care. * Cara Reagan RN - 09/12/2018 12:03 PM EST COMPLEX DISCHARGE Date: 09/12/2018 Time: 12:03 PM Patient Name: Tristin Powell Date of : 1940 Sex: Male Discharge Plan Shared UM/CC and RN Source of Information: Chart Living Arrangements: Family members Support Systems: Family members Functional Status: Minimum assistance Type of Residence: Private residence Prior to Admission Home Care Services: No Current Home Equipment: Walker, Wheel chair, Cane Insurance Coverage for Prescriptions: Yes Anticipated Discharge Plan Anticipated Home Care Needs: Home health care Potential for Readmission Potential for Readmission: No Discharge Readiness Expected Discharge Date: 09/13/18 [facility] Disposition D/C Disposition: Home Health Care Services Related to Current Admission?: Yes Agency/Destination: [facility] Home Care Needs : Home health care Met with pt's dtr to discuss dschg plan. They wish to have referral sent to [facility]. Sent order for HHCfor RN, PT, OT. Sent referral to [facility]. Notified [facility] of referral. Updated AVS. * Rojelio Woody MD - 09/12/2018 11:37 AM EST [facility] Inpatient Progress Note 09/12/2018 Tristin Powell 1940 [id number] Assessment/Plan: Tristin Powell is a 78 y.o. male with a history of PVD s/p LLE angio with stent placement 08/09, prostate cancer, PVD, CAD, HTN who presented to [facility] 09/04/2018 as a transfer from [place] for second opinion regarding left lower extremity pain and discoloration that was present two days prior to admit there on 08/30/18. On admit his exam was notable for cool mottled left foot. He was admitted for further work up. 1. Critical LLE Ischemia: Underwent LLE Popliteal stent 08/09/18 in [place], discharged on ASA and xarelto. Returned with worsening ischemia, transferred for second opinion. LLE angiogram 09/05/18 with occluded stent, infrapopliteal stenosis, and severe ASPVD with occluded stent which appeared markedly undersized. No enovascular options therefore s/p left fem to peroneal bypass 09/07/[address] Sarabia (Vascular Surgery). Dr. Mann (critical li/mb) following for demarcation prior to planned amputation, this may be followed as an outpatient. Recommended ongoing statin, aspirin and plavix 2. Acute LLE Pain: in the setting of acute limb ischemia. Pain management folllowed. PO pain control, persistent sedation, falls asleep mid sentence, daughter concerned for sedation. Will discuss with pain management. 3. Opioid induced constipation: No bowel movement since 08/28/18. On narcotics for acute pain. Bowel regimen initiated. Resolved with Mag citrate on admission, worsened and next BM after Movantik 4. Acute on Chronic Anemia: Unknown baseline. Normocytic. Hb 11.2 on admit. Suspect blood loss frombypass surgery. Hb 7.5 on 09/10/18 s/p 1 unit pRBC on 09/11/18. Hgb stable at 8.1. Transfuse for Hb<7. 5. HTN: per history. Titrate prn. 6. CAD: s/p stents per history. DAPT, high intensity statin and BB continued 7. Obesity: BMI 31, diet and exercise encouraged. 8. DVT Prophylaxis: Heparin SC Current living situation: home, alone Expected Disposition: Up to 5 days, refused rehab. Patient and family request home discharge Estimated discharge date: 09/13/18 Updated family at bedside 09/12/18 Subjective: No acute events overnight, hgb 8.1 yesterday in AM, received 1 unit pRBC and repeat hgb 8.1. Discussed with CTS regarding clearance for discharge today, request for 10 days of doxycycline per podiatry. However on my exam, patient very drowsy, unable to stay awake. Seemed the same way yesterday, thought it was just related to time of day I met him. His daughter at bedside is concerned about over sedation. Will discuss with pain medicine regarding dose reduction of medication. Patient does not feel safe going home today, plan on D/C tomorrow early in AM unless patient awakens and agreeable to discharge this afternoon Physical Exam: BP 142/70 (BP Location: Right arm, Patient Position: Lying) Pulse 95 Temp 99.6 F (37.6 C) (Oral) Resp 16 Ht 6' 2 Wt 111.6 kg (246 lb) SpO2 92% BMI 31.58 kg/m General: NAD, resting in bed Eyes: EOMI ENT: neck supple Cardiovascular: Regular rhythm, tachycardic Respiratory: Clear to auscultation, no rhonchi wheezes or rales Gastrointestinal: Soft, non tender Genitourinary: no suprapubic tenderness Musculoskeletal: LLE supportive boot, (rooke boot on side table, patient complaints of it being toohot and painful) Skin: warm Neuro: Awake and alert. No focal deficits. Psych: Mood calm, cooperative Current Medications: aspirin 81 mg Oral Daily atorvastatin 40 mg Oral Nightly clopidogrel 75 mg Oral Daily gabapentin 400 mg Oral Q8H SADIA heparin (porcine) 5,000 Units Subcutaneous Q8H SADIA metoprolol succinate 50 mg Oral Daily naloxegol 12.5 mg Oral Daily polyethylene glycol 17 g Oral Daily senna-docusate 2 tablet Oral BID Labs, Imaging and Studies reviewed: Results from last 7 days Lab Units 09/11/18 2331 09/11/1838 09/10/18200609/10/18 0610 WBC K/mcL -- 7.28 7.13 7.34 HGB g/dL 8.1* 8.1* 7.6* 7.5* HCT % 20.5* 24.4* 22.2* 22.0* PLT K/mcL -- 249 246 234 Results from last 7 days Lab Units 09/11/18 0738 09/10/18 0609/09/18 0746 SODIUM mmol/L 131* 134* 135 POTASSIUM mmol/L 4.8 4.6 4.3 CHLORIDE mmol/L 95* 99 99 BICARB mmol/L 26 27 28 BUN mg/dL 11 12 13 CREATININE mg/dL 0.65* 0.67* 0.71* EGFR mL/min/1.73 m2 93 91 89 GLUCOSE mg/dL 114* 116* 111* CALCIUM mg/dL 8.9 8.9 8.9 Results from last 7 days Lab Units 09/11/18 0738 09/10/1860909/09/18 0746 INR 1.2* 1.2* 1.2* * Vivi Gonzalez, RD - 09/12/2018 10:21 AM EST Nutrition Care Follow Up Monitoring and Evaluation: PO intake was less than 75% at most meals Nutrition Diagnosis: New Dx: Increased nutrient needs r/t wound healing AEB chronic LE wounds, surgery Nutrition Intervention: Initiate Medical Food Supplement Nutrition Prescription: Diet: regular Oral nutrition supplement: Boost Plus TID (str) Nutrition Goals: PO intake > 50% most meals, supplement Monitoring of above goal will occur: Start Date:09/12/2018 Expected End Date:09/18/2018 Nutrition Education: Pt/family education: Learner: patient, family member Educated on: increased needs for wd healing, reviewed protein sources Readiness: acceptance Method: explanation Response: pt needs reinforcement Assessment: Pertinent clinical information: LLE ischemia, s/p peroneal fem bypass 09/07, possible foot amp in future Patient/family comments: Pt states appetite is improving, family reports he has not been eating much at meals, they have been giving him much encouragement Height: 6' 2 Current weight: 111.6 kg (246 lb) BMI Body mass index is 31.58 kg/m . Weight hx: Wt Readings from Last 5 Encounters: 09/04/18 111.6 kg (246 lb) Current diet order: regular Recent intake: 25-50% reported by staff Current intake Likely does not meet estimated needs. Difficulty Chewing/Swallowing: No Skin Integrity: Surgical incision, LLE wound GI Function: LBM 09/07 Labs: Recent Labs 09/11/18 0738 NA 131* K 4.8 BICARB 26 CL 95* GLUCOSE 114* BUN 11 CREATININE 0.65* Scheduled Meds: aspirin 81 mg Oral Daily atorvastatin 40 mg Oral Nightly clopidogrel 75 mg Oral Daily gabapentin 400 mg Oral Q8H SADIA heparin (porcine) 5,000 Units Subcutaneous Q8H SADIA metoprolol succinate 50 mg Oral Daily naloxegol 12.5 mg Oral Daily polyethylene glycol 17 g Oral Daily senna-docusate 2 tablet Oral BID Continuous Infusions: none Estimated Energy Needs Total Energy Estimated Needs: 7062-6907 kcal Method for Estimating Needs: MSJ + 20% Total Protein Estimated Needs: 88-106 g Method for Estimating Needs: 1-1.2 g/kg IBW (BMI 24.9) * Esau Alejandro MD - 09/12/2018 9:17 AM EST VASCULAR SURGERY PROGRESS NOTE 09/12/18 Patient Name: Tristin Powell : 1940 MR #: [id number] Admit Date: 1070905 Assessment and Plan: Tristin Powell is a 78 y.o. male with a PMH of PVD s/p LLE angio with stent placement 08/09, prostatecancer, PVD, CAD, HTN and a PSH of L ankle ORIF and thriple CABG in october 2016 with L saphenous vein harvested who presented to [facility] 09/04/2018 as a transfer from [place] for second opinion regarding left lower extremity pain and discoloration Chronic LLE ischemia S/p peroneal femoral bypass 09/07/18 - Regular diet - Rooke boot LLE - ET following, adaptik and gauze EOD - Podiatry following, betadine paint while waitin for demarcation. - Pain and N control - Patient refusing SNF - Podiatry recs doxy for 10 days on d/c, f/u info in AVS - Plan for d/c today - Discussed with Dr. Cornell DAVID. Having persistent foot pain Physical Examination: Vital Signs: BP 142/70 (BP Location: Right arm, Patient Position: Lying) Pulse 95 Temp 99.6 F (37.6 C) (Oral) Resp 14 Ht 6' 2 Wt 111.6 kg (246 lb) SpO2 92% BMI 31.58 kg/m General: awake and alert, no acute distress Head: normocephalic, atraumatic Eyes: no scleral icterus, pupils equal and round Neck: trachea midline, soft Cardiovascular: hemodynamically stable Pulmonary: nonlabored breathing, equal chest rise Abdomen: soft, non-tender, non-distended, no peritoneal signs Extremities: Doppler (+) R PT/DP, L PT Skin: warm, dry and intact Neurological: Sensation improved to LLE but still decreased, motor intact to B/L LE Laboratory and Additional Data Reviewed: Lab Results Component Value Date WBC 7.28 09/11/2018 HGB 8.1 (L) 09/11/2018 HCT 20.5 (L) 09/11/2018 MCV 91.7 09/11/2018 PLT 249 09/11/2018 Lab Results Component Value Date GLUCOSE 114 (H) 09/11/2018 CALCIUM 8.9 09/11/2018 NA 131 (L) 09/11/2018 K 4.8 09/11/2018 CL 95 (L) 09/11/2018 BUN 11 09/11/2018 CREATININE 0.65 (L) 09/11/2018 No results found for: ALT, AST, GGT, ALKPHOS, BILITOT Lab Results Component Value Date INR 1.2 (H) 09/11/2018 INR 1.2 (H) 09/10/2018 INR 1.2 (H) 09/09/2018 PROTIME 14.7 (H) 09/11/2018 PROTIME 14.4 (H) 09/10/2018 PROTIME 15.1 (H) 09/09/2018 Imaging Reviewed: US Doppler ankle/brachial index Final Result XR OR Angio Add Final Result XR Fluoroscopy Time Final Result XR Chest 1 View Final Result Stable chest. No acute disease. [facility] Workstation ID: [id number] Saphenous vein mapping, limited Final Result Cardiac Catheterization Final Result Ultrasound duplex arterial leg left Final Result XR Comparison Import Final Result Us Doppler Ankle/brachial Index Result Date: 09/10/2018 Non-Invasive Vascular Patient: SHERRY Bazan [facility] Rec#: [id number] (Age): 1940(78y) Study Date: 09/10/2018 Room#: 8506 Type: Inpatient Sex: M Reading: [place] Reading: Ben Hahn MD, RPVI Referring: Esau Alejandro her: Julius, Andre RDCS/RVT Procedure Info: [id number] Study Quality: Lower Arterial Doppler: adequate __ Diagnosis: I73.9 Peripheral vascular disease, unspecified Lower Arterial Doppler Conclusions Right ankle brachial index indicates moderate peripheral artery dis ease. Toe pressure is 52 mmHg. Left ankle brachial index indicates mild peripheral artery disease. Toe pressure is 0 mmHg. No evidence of small vessel disease noted at the transmetatarsal level in the right foot. Toe brachial index is abnormal. Moderate small vessel disease noted at the transmetatarsal level in the left foot. Toe brachial index is abnormal. The procedure was explained to the patient. The patient voiced understanding. Finding Grids Lower PVR Waveforms Right Left Ankle B B Transmet N B Harper --------- B = Abnormal N = Normal Toe PPG Waveforms Right Left 1st Digit N A Harper --------- N = Normal A = Absent Measurements Right Pressures/Ratios Name Value Units Brachial 154 mmHg Ankle (Posterior Tibial) 96 mmHg Ankle (Dorsalis Pedis) 93 mmHg Toe 52 mmHg YAMILE 0.62 ratio TBI 0.34 ratio Left Pressures/Ratios Name Va lue Units Brachial 150 mmHg Ankle (Posterior Tibial) 75 mmHg Ankle (Dorsalis Pedis) 116 mmHg Toe 0 mmHg YAMILE 0.75 ratio TBI 0 ratio History CAD. Hypertension. PAD. Electronically signed at 09/10/2018 17:30:46 by: Ben Hahn MD, RPVI Esau Alejandro MD General Surgery PGY-1 Pager [phone] *After 5pm, or on weekends, page [phone]* * Maranda Meléndez, CABINET INSTALLER - 09/11/2018 3:45 PM EST Progress Note: [facility] PAIN SERVICE Date: 09/11/2018 Patient name: Tristin Powell Date Of : 1940 Assessment/Plan: Pain of left lower extremity Assessment & Plan -Patient states pain improving, but remains with constipation -Continue Oxycodone 5-10 mg Q4H PRN for now -Continue Gabapentin 400 mg TID -Start Movantik for opioid induced constipation, tomorrow 09/12/18, and hold all other laxatives at that time -Discussed realistic expectations and goals. Being pain free is unlikely during this acute post op period -Will continue to follow and make adjustments as needed -Please call with questions -Presented to [facility] 09/04/2018 as a transfer from [place] for second opinion regarding left lower extremity pain and discoloration that was present two days prior to admit there on 08/30. s/p LLE angio withstent placement 08/09 -NARx reviewed, patient prescribed Gabapentin 200 mg TID (last filled #540 tabs for 90 days 07/12/18) and Percocet 5/325 mg (#28 tabs for 7 days 08/23/18) written by Dr. Flash Lovelace -s/p Peroneal Femoral Bypass 09/07/[address] Saarbia Subjective/Objective: Perpetual Assessment: Tristin Powell is a 78 y.o. y/o male on hospital day 7 as transfer from [place] for second opinion for LLE pain and discoloration. S/p LLE angio with stent placement 08/09/18. HPI: Patient lying in bed appears comfortable, daughter at bedside. States pain much better controlled today. Daughter feels he has been a little sleepy lately, will monitor. Notes some gas today, but nothing more, and unable to pass stool since 09/05/18. Discussed adding Movantik to help, and patient agreeable. Denies side effects/sedation from current regimen. Chief Complaint: SNOMED CT(R) 1. Ischemic foot ISCHEMIC FOOT 2. PAD (peripheral artery disease) (HCC) PERIPHERAL VASCULAR DISEASE Patient Active Problem List Diagnosis SNOMED CT(R) Critical lower limb ischemia CRITICAL LOWER LIMB ISCHEMIA Coronary artery disease involving coronary bypass graft of [place] heart without angina pectoris ARTERIOSCLEROSIS OF CORONARY ARTERY BYPASS GRAFT Hypercholesteremia HYPERCHOLESTEROLEMIA Essential hypertension ESSENTIAL HYPERTENSION Class 1 obesity with body mass index (BMI) of 31.0 to 31.9 in adult OBESITY Pain of left lower extremity PAIN IN LEFT LOWER LIMB Length of stay: 7 Review of Systems: The following system(s) were reviewed: All other systems reviewed and negative other than HPI. Physical Examination: BP (!) 136/59 (BP Location: Right arm, Patient Position: Lying) Pulse 96 Temp 98.8 F (37.1 C) (Oral) Resp 14 Ht 6' 2 Wt 111.6 kg (246 lb) SpO2 100% BMI 31.58 kg/m Constitutional: Alert, appears to be comfortable, appears stated age Eyes: conjunctiva/corneas clear, EOM's intact Ears, Nose, Mouth and Throat: No masses, mucosal membrane intact Neck: Symmetrical, trachea midline Respiratory: Respirations unlabored,normal respiratory effort Cardiovascular: Regular rate and rhythm Chest : No tenderness or deformity Gastrointestinal (Abdomen): Soft, non-tender Genitourinary: Not examined Back: Symmetric, no curvature, ROM limited Skin: Skin color, texture wnl, no rashes or lesions Musculoskeletal: LUU x 4, Left foot cool to touch with discoloration Neurologic: Sensation intact, no tremors noted throughout Psych: Pleasant, appropriate affect Intake/Output last 3 shifts: I/O last 3 completed shifts: In: 400 [P.O.:400] Out: 1924 [Urine:1924] Results/Medications Reviewed 09/11/18 4:53 PM: Laboratory, Microbiology, Cardiology, Medications and Transcriptions Medications: Scheduled Meds: aspirin 81 mg Oral Daily atorvastatin 40 mg Oral Nightly clopidogrel 75 mg Oral Daily gabapentin 400 mg Oral Q8H SADIA heparin (porcine) 5,000 Units Subcutaneous Q8H SADIA metoprolol succinate 50 mg Oral Daily [START ON 09/12/2018] naloxegol 12.5 mg Oral Daily polyethylene glycol 17 g Oral Daily senna-docusate 2 tablet Oral BID Continuous Infusions: sodium chloride 0.9 % PRN Meds: acetaminophen, atropine, bisacodyl, nalOXone AND Notify physician AND naloxone, nitroGLYCERIN, oxyCODONE, prochlorperazine (COMPAZINE) injection, sodium chloride 0.9%, sodium chloride 0.9 % LABS: Reviewed Results from last 7 days Lab Units 09/11/18 0738 09/10/18200609/10/18 0610 09/09/18 0746 09/07/18 1431 09/07/18 0758 09/06/18 2219 WBC K/mcL 7.28 7.13 7.34 -- 6.48 < > -- 5.93 -- HGB g/dL 8.1* 7.6* 7.5* < > 7.7* < > -- 10.8* -- HCT % 24.4* 22.2* 22.0* < > 23.0* < > -- 31.6* -- PLT K/mcL 249 246 234 -- 207 < > -- 212 -- INR 1.2* -- 1.2* -- 1.2* < > -- 1.2* -- PTT seconds -- -- -- -- -- -- 74* 47* 38* SODIUM mmol/L 131* -- 134* -- 135 < > -- 135 -- POTASSIUM mmol/L 4.8 -- 4.6 -- 4.3 < > -- 4.0 -- CHLORIDE mmol/L 95* -- 99 -- 99 < > -- 99 -- BUN mg/dL 11 -- 12 -- 13 < > -- 9 -- CREATININE mg/dL 0.65* -- 0.67* -- 0.71* < > -- 0.69* -- GLUCOSE mg/dL 114* -- 116* -- 111* < > -- 110* -- CALCIUM mg/dL 8.9 -- 8.9 -- 8.9 < > -- 9.4 -- < > = values in this interval not displayed. Assessment Detail: The total time spent for this visit was 30 minutes. Greater than 50% of the time was spent in counseling and coordination of care regarding pain and plan of care. * Rojelio Woody MD - 09/11/2018 1:53 PM EST [facility] 09/11/2018 Tristin Powell 1940 [id number] Assessment/Plan: Tristin Powell is a 78 y.o. male with a history of PVD s/p LLE angio with stent placement 08/09, prostate cancer, PVD, CAD, HTN who presented to [facility] 09/04/2018 as a transfer from [place] for second opinion regarding left lower extremity pain and discoloration that was present two days prior to admit there on 08/30/18. On admit his exam was notable for cool mottled left foot. He was admitted for further work up. Labs prior to transfer notable for Cr 0.7. 1. Critical LLE Ischemia: s/p LLE angiogram 08/09/18 with popliteal balooning and stent in [place], Discharged on ASA and xarelto. Returned to the [facility] with worsening pain and discoloration of his foot. Transferred for second opinion. Exam on admit notable for cool mottled foot. DAPT, high intensity statin and Heparin gtt continued. PV recommended LLE rooke boot with offloading at all times. LLE duplex with occluded stent noted in the left distal superficial femoral artery and popliteal artery. 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 PV recommended DAPT. S/p peroneal femoral bypass 09/07/[address] Sarabia (Vascular Surgery). Dr. Mann (critical limb) following for demarcation prior to planned amputation, this may be followed as an outpatient. 2. Acute LLE Pain: in the setting of acute limb ischemia. Pain management folllowed. PO pain control, monitor for resp. Depression. Improved. 3. Opioid induced constipation: No bowel movement since 08/28/18. On narcotics for acute pain. Bowel regimen initiated. Resolved. 4. Acute on Chronic Anemia: Unknown baseline. Normocytic. Hb 11.2 on admit. Suspect blood loss frombypass surgery. Hb 7.5 09/10/18. No sites of bruising/bleeding noted. H&H q12h. Transfuse for Hb<7. 5. HTN: per history. Titrate prn. 6. CAD: s/p stents per history. DAPT, high intensity statin and BB continued 7. Obesity: BMI 31, diet and exercise encouraged. 8. DVT Prophylaxis: resume chemical ppx when okay per vascular surgery Current living situation: home, alone Expected Disposition: Up to 5 days Estimated discharge date: 09/13/18 Updated family at bedside 09/11/18 Subjective: New patient to me, reviewed chart, discussed case with nurse. Patient complains of constipation again, will continue with bowel regimen. Hgb 8.1 this morning, appearing to have orders for pRBC transfusion. Physical Exam: BP 130/63 (BP Location: Right arm, Patient Position: Lying) Pulse (!) 118 Temp 99 F (37.2 C) (Oral) Resp (!) 27 Ht 6' 2 Wt 111.6 kg (246 lb) SpO2 92% BMI 31.58 kg/m General: NAD, resting in bed Eyes: EOMI ENT: neck supple Cardiovascular: Regular rhythm, tachycardic Respiratory: Clear to auscultation, no rhonchi wheezes or rales Gastrointestinal: Soft, non tender Genitourinary: no suprapubic tenderness Musculoskeletal: LLE in rooke boot Skin: warm Neuro: Awake and alert. No focal deficits. Psych: Mood calm, cooperative Current Medications: aspirin 81 mg Oral Daily atorvastatin 40 mg Oral Nightly clopidogrel 75 mg Oral Daily docusate sodium 100 mg Oral Daily gabapentin 400 mg Oral Q8H [facility] heparin (porcine) 5,000 Units Subcutaneous Q8H [facility] metoprolol succinate 50 mg Oral Daily polyethylene glycol 17 g Oral Daily Labs, Imaging and Studies reviewed: Results from last 7 days Lab Units 09/11/18 0738 09/10/18200609/10/18 0610 WBC K/mcL 7.28 7.13 7.34 HGB g/dL 8.1* 7.6* 7.5* HCT % 24.4* 22.2* 22.0* PLT K/mcL 249 246 234 Results from last 7 days Lab Units 09/11/18 0738 09/10/18 0610 09/09/18 0746 SODIUM mmol/L 131* 134* 135 POTASSIUM mmol/L 4.8 4.6 4.3 CHLORIDE mmol/L 95* 99 99 BICARB mmol/L 26 27 28 BUN mg/dL 11 12 13 CREATININE mg/dL 0.65* 0.67* 0.71* EGFR mL/min/1.73 m2 93 91 89 GLUCOSE mg/dL 114* 116* 111* CALCIUM mg/dL 8.9 8.9 8.9 Results from last 7 days Lab Units 09/11/18 0738 09/10/1810 09/09/18 0746 INR 1.2* 1.2* 1.2* * Esau Alejandro MD - 09/11/2018 10:38 AM EST VASCULAR SURGERY PROGRESS NOTE 09/11/18 Patient Name: Tristin Powell : 1940 MR #: [id number] Admit Date: 1070905 Assessment and Plan: Tristin Powell is a 78 y.o. male with a PMH of PVD s/p LLE angio with stent placement 08/09, prostatecancer, PVD, CAD, HTN and a PSH of L ankle ORIF and thriple CABG in october 2016 with L saphenous vein harvested who presented to [facility] 09/04/2018 as a transfer from [place] for second opinion regarding left lower extremity pain and discoloration Chronic LLE ischemia S/p peroneal femoral bypass 09/07/18 - Regular diet - Rooke boot LLE - ET following, adaptik and gauze EOD - Podiatry following, betadine paint while waitin for demarcation. - Pain and N control - PT/OT, recommending SNF - Consult placed to case management - Discussed with Dr. Walker Subjective NAEO. No new complaints Physical Examination: Vital Signs: BP (!) 131/52 (BP Location: Right arm, Patient Position: Lying) Pulse 95 Temp 99.2 F (37.3 C) (Oral) Resp 16 Ht 6' 2 Wt 111.6 kg (246 lb) SpO2 95% BMI 31.58 kg/m General: awake and alert, no acute distress Head: normocephalic, atraumatic Eyes: no scleral icterus, pupils equal and round Neck: trachea midline, soft Cardiovascular: hemodynamically stable Pulmonary: nonlabored breathing, equal chest rise Abdomen: soft, non-tender, non-distended, no peritoneal signs Extremities: Doppler (+) R PT/DP, L PT Skin: warm, dry and intact Neurological: Sensation improved to LLE but still decreased, motor intact to B/L LE Laboratory and Additional Data Reviewed: Lab Results Component Value Date WBC 7.28 09/11/2018 HGB 8.1 (L) 09/11/2018 HCT 24.4 (L) 09/11/2018 MCV 91.7 09/11/2018 PLT 249 09/11/2018 Lab Results Component Value Date GLUCOSE 114 (H) 09/11/2018 CALCIUM 8.9 09/11/2018 NA 131 (L) 09/11/2018 K 4.8 09/11/2018 CL 95 (L) 09/11/2018 BUN 11 09/11/2018 CREATININE 0.65 (L) 09/11/2018 No results found for: ALT, AST, GGT, ALKPHOS, BILITOT Lab Results Component Value Date INR 1.2 (H) 09/11/2018 INR 1.2 (H) 09/10/2018 INR 1.2 (H) 09/09/2018 PROTIME 14.7 (H) 09/11/2018 PROTIME 14.4 (H) 09/10/2018 PROTIME 15.1 (H) 09/09/2018 Imaging Reviewed: US Doppler ankle/brachial index Final Result XR OR Angio Add Final Result XR Fluoroscopy Time Final Result XR Chest 1 View Final Result Stable chest. No acute disease. [facility] Workstation ID: [id number] Saphenous vein mapping, limited Final Result Cardiac Catheterization Final Result Ultrasound duplex arterial leg left Final Result XR Comparison Import Final Result Us Doppler Ankle/brachial Index Result Date: 09/10/2018 Non-Invasive Vascular Patient: SHERRY Jones Rec#: [id number] (Age): 1940(78y) Study Date: 09/10/2018 Room#: 8506 Type: Inpatient Sex: M Reading: [place] Reading: Ben Hahn MD, RPVI Referring: Esau Alejandro her: Andre Madrid RDCS/RVT Procedure Info: [id number] Study Quality: Lower Arterial Doppler: adequate __ Diagnosis: I73.9 Peripheral vascular disease, unspecified Lower Arterial Doppler Conclusions Right ankle brachial index indicates moderate peripheral artery dis ease. Toe pressure is 52 mmHg. Left ankle brachial index indicates mild peripheral artery disease. Toe pressure is 0 mmHg. No evidence of small vessel disease noted at the transmetatarsal level in the right foot. Toe brachial index is abnormal. Moderate small vessel disease noted at the transmetatarsal level in the left foot. Toe brachial index is abnormal. The procedure was explained to the patient. The patient voiced understanding. Finding Grids Lower PVR Waveforms Right Left Ankle B B Transmet N B Harper --------- B = Abnormal N = Normal Toe PPG Waveforms Right Left 1st Digit N A Harper --------- N = Normal A = Absent Measurements Right Pressures/Ratios Name Value Units Brachial 154 mmHg Ankle (Posterior Tibial) 96 mmHg Ankle (Dorsalis Pedis) 93 mmHg Toe 52 mmHg YAMILE 0.62 ratio TBI 0.34 ratio Left Pressures/Ratios Name Va lue Units Brachial 150 mmHg Ankle (Posterior Tibial) 75 mmHg Ankle (Dorsalis Pedis) 116 mmHg Toe 0 mmHg YAMILE 0.75 ratio TBI 0 ratio History CAD. Hypertension. PAD. Electronically signed at 09/10/2018 17:30:46 by: Ben Hahn MD, RPVI Esau Alejandro MD General Surgery PGY-1 Pager [phone] *After 5pm, or on weekends, page [phone]* Associated attestation - Mohsen Sarabia MD - 09/11/2018 5:05 PM EST Patient seen and examined. I have personally reviewed all pertinent labs, radiological studies and records. I have personally examined the patient and agree with resident/ARTIFICIAL FLOWER MAKER/PA assessment and plan. * Flynn Mann DPM - 09/11/2018 8:09 AM EST Patient Name: Tristin Powell MR #: [id number] : 1940 Physicians: Flash Lovelace MD (Family); Dann Chairez, * (Referring) Progress Note: Tristin Powell is a 78 y.o. male This patient presents for a followup consultation for the left lower extremity ischemic disease, status post recent bypass surgery with Dr. Sarabia. Patient denies any new problems. He still has some pain in lower extremity. He has been attempted ambulatory and transfers recently for the bathroom without difficulty or problems. Patient is seen at bedside with Dr. Sarabia as well as with his family. Labs: Lab Results Component Value Date WBC 7.13 09/10/2018 HGB 7.6 (L) 09/10/2018 HCT 22.2 (L) 09/10/2018 MCV 94.9 09/10/2018 PLT 246 09/10/2018 No results found for: [id number] results found for: SEDRATE No results found for: CRP Physical Examination: Vital Signs: BP (!) 131/52 (BP Location: Right arm, Patient Position: Lying) Pulse 95 Temp 99.2 F (37.3 C) (Oral) Resp 16 Ht 6' 2 Wt 111.6 kg (246 lb) SpO2 95% BMI 31.58 kg/m General: Patient is alert and oriented x3, in no acute distress. He is pleasant and conversive today. Lower Extremity: No significant clinical change. There is stability at the previous bullous lesion measuring about 4-5 cm at the dorsal left foot at the metatarsal level. There is still some taut shiny skin and a tissue paper quality to the skin at the dorsal midfoot. A little bit of tenderness adjacent to the area, but no fluctuance, crepitus, or detectable abscess clinically. There is still some warmth and erythema diffusely throughout the left rearfoot and midfoot. No other progressive gangrene changes at digital level. Assessment and Plan: Patient Active Problem List Diagnosis SNOMED CT(R) Critical lower limb ischemia CRITICAL LOWER LIMB ISCHEMIA Coronary artery disease involving coronary bypass graft of [place] heart without angina pectoris ARTERIOSCLEROSIS OF CORONARY ARTERY BYPASS GRAFT Hypercholesteremia HYPERCHOLESTEROLEMIA Essential hypertension ESSENTIAL HYPERTENSION Class 1 obesity with body mass index (BMI) of 31.0 to 31.9 in adult OBESITY Pain of left lower extremity PAIN IN LEFT LOWER LIMB All treatments were discussed in detail with the patient today. At this point, we will continue to monitor for clinical changes, demarcation of any level of necrosis that might occur in the left lower extremity. The patient likely to require some level of amputation of the foot, including possible a midfoot amputation or Lisfranc level amputation. Clinical margins are difficult to assess at this point. I will allow for several more days of demarcation. The patient may be followed as outpatient if fill discharge criterion prior to time of demarcation. He may be [facility] with Dr. Mann at [phone] [address] [place]. Case discussed with Dr. Sarabia. Consider home going antibiotics for coverage of any residual cellulitis. Clinical area of warmth and erythema could be due to reperfusion, but cannot rule out of residual cellulitis as well. Flynn Mann DPM, FACFAS Electronically signed by the above physician 09/11/18 * Ronnie Warren MD - 09/10/2018 12:04 PM EST Progress Note: [facility] PAIN SERVICE Date: 09/10/2018 Patient name: Tristin Powell Date Of : 1940 Assessment/Plan: Pain of left lower extremity Assessment & Plan -Patient states pain much better tolerated this morning and Oxycodone helps -Decrease Oxycodone 5-10 mg to Q4H PRN for now -Continue Gabapentin 400 mg TID -Will consider adding Movantik for opioid induced constipation, if constipation returns, appears last stool 09/07/18 -Discussed realistic expectations and goals. Being pain free is unlikely during this acute post op period -Will continue to follow and make adjustments as needed -Please call with questions -Presented to [facility] 09/04/2018 as a transfer from [place] for second opinion regarding left lower extremity pain and discoloration that was present two days prior to admit there on 08/30. s/p LLE angio withstent placement 08/09 -NARx reviewed, patient prescribed Gabapentin 200 mg TID (last filled #540 tabs for 90 days 07/12/18) and Percocet 5/325 mg (#28 tabs for 7 days 08/23/18) written by Dr. Flash Lovelace -s/p Peroneal Femoral Bypass 09/07/[address] Sarabia Subjective/Objective: Perpetual Assessment: Tristin Powell is a 78 y.o. y/o male on hospital day 6 as transfer from [place] for second opinion for LLE pain and discoloration. S/p LLE angio with stent placement 08/09/18. HPI: Patient lying in bed appears comfortable. States pain much better controlled today. Notes increased movement in legs today. Denies side effects/sedation from current regimen. Chief Complaint: SNOMED CT(R) 1. Ischemic foot ISCHEMIC FOOT 2. PAD (peripheral artery disease) (HCC) PERIPHERAL VASCULAR DISEASE Patient Active Problem List Diagnosis SNOMED CT(R) Critical lower limb ischemia CRITICAL LOWER LIMB ISCHEMIA Coronary artery disease involving coronary bypass graft of [place] heart without angina pectoris ARTERIOSCLEROSIS OF CORONARY ARTERY BYPASS GRAFT Hypercholesteremia HYPERCHOLESTEROLEMIA Essential hypertension ESSENTIAL HYPERTENSION Class 1 obesity with body mass index (BMI) of 31.0 to 31.9 in adult OBESITY Pain of left lower extremity PAIN IN LEFT LOWER LIMB Length of stay: 6 Review of Systems: The following system(s) were reviewed: All other systems reviewed and negative other than HPI. Physical Examination: BP 141/65 (BP Location: Left arm, Patient Position: Lying) Pulse 93 Temp 98.9 F (37.2 C) (Oral) Resp 18 Ht 6' 2 Wt 111.6 kg (246 lb) SpO2 96% BMI 31.58 kg/m Constitutional: Alert, appears to be comfortable, appears stated age Eyes: conjunctiva/corneas clear, EOM's intact Ears, Nose, Mouth and Throat: No masses, mucosal membrane intact Neck: Symmetrical, trachea midline Respiratory: Respirations unlabored,normal respiratory effort Cardiovascular: Regular rate and rhythm Chest : No tenderness or deformity Gastrointestinal (Abdomen): Soft, non-tender Genitourinary: Not examined Back: Symmetric, no curvature, ROM limited Skin: Skin color, texture wnl, no rashes or lesions Musculoskeletal: LUU x 4, Left foot cool to touch with discoloration Neurologic: Sensation intact, no tremors noted throughout Psych: Pleasant, appropriate affect Intake/Output last 3 shifts: I/O last 3 completed shifts: In: 400 [P.O.:400] Out: 1800 [Urine:1800] Results/Medications Reviewed 09/10/18 12:04 PM: Laboratory, Microbiology, Cardiology, Medications and Transcriptions Medications: Scheduled Meds: aspirin 81 mg Oral Daily atorvastatin 40 mg Oral Nightly clopidogrel 75 mg Oral Daily docusate sodium 100 mg Oral Daily gabapentin 400 mg Oral Q8H SADIA metoprolol succinate 50 mg Oral Daily polyethylene glycol 17 g Oral Daily Continuous Infusions: PRN Meds: acetaminophen, atropine, bisacodyl, nalOXone AND Notify physician AND naloxone, nitroGLYCERIN, oxyCODONE, prochlorperazine (COMPAZINE) injection, sodium chloride 0.9% LABS: Reviewed Results from last 7 days Lab Units 09/10/18 0610 09/09/18 2211 09/09/18 1122 09/09/18 0746 09/08/18 0259 09/07/18 1431 09/07/18 0758 09/06/182218 WBC K/mcL 7.34 -- -- 6.48 11.23* -- 5.93 -- -- HGB g/dL 7.5* 8.0* 7.7* 7.7* 10.0* -- 10.8* -- -- HCT % 22.0* 22.8* 22.9* 23.0* 29.9* -- 31.6* -- -- PLT K/mcL 234 -- -- 207 209 -- 212 -- -- INR 1.2* -- -- 1.2* 1.2* -- 1.2* < > -- PTT seconds -- -- -- -- -- 74* 47* -- 38* SODIUM mmol/L 134* -- -- 135 133* -- 135 -- -- POTASSIUM mmol/L 4.6 -- -- 4.3 4.5 -- 4.0 -- -- CHLORIDE mmol/L 99 -- -- 99 99 -- 99 -- -- BUN mg/dL 12 -- -- 13 8 -- 9 -- -- CREATININE mg/dL 0.67* -- -- 0.71* 0.56* -- 0.69* -- -- GLUCOSE mg/dL 116* -- -- 111* 189* -- 110* -- -- CALCIUM mg/dL 8.9 -- -- 8.9 9.0 -- 9.4 -- -- < > = values in this interval not displayed. Assessment Detail: The total time spent for this visit was 35 minutes. Greater than 50% of the time was spent in counseling and coordination of care regarding pain and plan of care. * Maxine Summers RN - 09/10/2018 11:21 AM EST WOC/ET RN consult/evaluation note: Evaluated Tristin Powell for wound located on left foot. Description of wound/Recommendation: Responding to a wound care consult for assessment of left footwounds. Dressing was removed. He has two wounds to the dorsal aspect of his left foot and a fluid-filled bullae to his 4th anterior toe. The rest toes are cool to touch. I was unable to feel a pulse.Spoke with his RN who stated that a doppler is needed to obtain a pulse. The largest of the 2 wounds was a large bullae that ruptured. The wound bed is pink and painful to touch. There is a smaller wound to the medial side which has an intact scab. The foot was cleansed with soap and water, pattingdry. Adaptic guaze was applied over the main wound and 4th toe. This was then wrapped with a Guaze roll. Change every 2 days and PRN Wilder Score: 20 Surface: Sport low air loss Wound documentation : 09/10/18 1100 Wound (Inpatient and Home Care Only) Foot (mid);Foot (proximal);Fourth Toe;Great Toe Anterior;Left;Plantar No Date First Assessed or Time First Assessed found. Primary Wound Type: Soft Tissue Necrosis Location: Foot (mid);Foot (proximal);Fourth Toe;Great Toe Wound Location Orientation: Anterior;Left;Plantar Wound Bed Characteristics Non-granulating;Painful;Red Drainage Amount None Odor None Primary/Secondary Dressing Non adherent;Gauze roll Wound Length (cm) 6 cm Wound Width (cm) 5.2 cm Wound Surface Area (cm^2) 31.2 cm^2 Wound Margin Attached to wound base;Well defined [place]-wound Assessment Clean;Dry;Intact;Cool Slough Description None Slough % None Eschar % None Treatments/Cleansing Cleansed;Soap and water RN notified of assessment and plan. Maxine Summers RN * Esau Alejandro MD - 09/10/2018 10:29 AM EST VASCULAR SURGERY PROGRESS NOTE 09/10/18 Patient Name: Tristin Powell : 1940 MR #: [id number] Admit Date: [id number] Assessment and Plan: Tristin Powell is a 78 y.o. male with a PMH of PVD s/p LLE angio with stent placement 08/09, prostatecancer, PVD, CAD, HTN and a PSH of L ankle ORIF and thriple CABG in october 2016 with L saphenous vein harvested who presented to [facility] 09/04/2018 as a transfer from [place] for second opinion regarding left lower extremity pain and discoloration Chronic LLE ischemia S/p peroneal femoral bypass 09/07/18 - Regular diet - Rooke boot LLE - ET consult for skin blistering - Pain and N control - PT/OT, OOB, Encourage IS - D/C qureshi today - Discussed with Dr. Cornell DAVID. No new complaints Physical Examination: Vital Signs: BP (!) 134/49 (BP Location: Left arm, Patient Position: Lying) Pulse 97 Temp 98.9 F (37.2 C) (Oral) Resp (!) 20 Ht 6' 2 Wt 111.6 kg (246 lb) SpO2 93% BMI 31.58 kg/m General: awake and alert, no acute distress Head: normocephalic, atraumatic Eyes: no scleral icterus, pupils equal and round Neck: trachea midline, soft Cardiovascular: hemodynamically stable Pulmonary: nonlabored breathing, equal chest rise Abdomen: soft, non-tender, non-distended, no peritoneal signs Extremities: Doppler (+) R PT/DP, L PT Skin: warm, dry and intact Neurological: Sensation improved to LLE but still decreased, motor intact to B/L LE Laboratory and Additional Data Reviewed: Lab Results Component Value Date WBC 7.34 09/10/2018 HGB 7.5 (L) 09/10/2018 HCT 22.0 (L) 09/10/2018 MCV 94.0 09/10/2018 PLT 234 09/10/2018 Lab Results Component Value Date GLUCOSE 116 (H) 09/10/2018 CALCIUM 8.9 09/10/2018 NA 134 (L) 09/10/2018 K 4.6 09/10/2018 CL 99 09/10/2018 BUN 12 09/10/2018 CREATININE 0.67 (L) 09/10/2018 No results found for: ALT, AST, GGT, ALKPHOS, BILITOT Lab Results Component Value Date INR 1.2 (H) 09/10/2018 INR 1.2 (H) 09/09/2018 INR 1.2 (H) 09/08/2018 PROTIME 14.4 (H) 09/10/2018 PROTIME 15.1 (H) 09/09/2018 PROTIME 14.9 (H) 09/08/2018 Imaging Reviewed: XR OR Angio Add Final Result XR Fluoroscopy Time Final Result XR Chest 1 View Final Result Stable chest. No acute disease. [facility] Workstation ID: [id number] Saphenous vein mapping, limited Final Result Cardiac Catheterization Final Result Ultrasound duplex arterial leg left Final Result XR Comparison Import Final Result Xr Fluoroscopy Time Result Date: 09/08/2018 This is an auto finalized result. Please refer to patient chart for further information. Xr Or Angio Add Result Date: 09/08/2018 This is an auto finalized result. Please refer to patient chart for further information. Esau Alejandro MD General Surgery PGY-1 Pager [phone] *After 5pm, or on weekends, page [phone]* * Vianca Franco DO - 09/10/2018 7:57 AM EST [facility] Inpatient Progress Note 09/10/2018 Tristin Powell 1940 [id number] Assessment/Plan: Tristin Powell is a 78 y.o. male with a history of PVD s/p LLE angio with stent placement 08/09, prostate cancer, PVD, CAD, HTN who presented to [facility] 09/04/2018 as a transfer from [place] for second opinion regarding left lower extremity pain and discoloration that was present two days prior to admit there on 08/30/18. On admit his exam was notable for cool mottled left foot. He was admitted for further work up. Labs prior to transfer notable for Cr 0.7. 1. Critical LLE Ischemia: s/p LLE angiogram 08/09/18 with popliteal balooning and stent in [place], Discharged on ASA and xarelto. Returned to the [facility] with worsening pain and discoloration of his foot. Transferred for second opinion. Exam on admit notable for cool mottled foot. DAPT, high intensity statin and Heparin gtt continued. PV recommended LLE rooke boot with offloading at all times. LLE duplex with occluded stent noted in the left distal superficial femoral artery and popliteal artery. 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 PV recommended DAPT. S/p peroneal femoral bypass 09/07/[address] Sarabia (Vascular Surgery). 2. Acute LLE Pain: in the setting of acute limb ischemia. Pain management folllowed. PO pain control, monitor for resp. Depression. Improved. 3. Opioid induced constipation: No bowel movement since 08/28/18. On narcotics for acute pain. Bowel regimen initiated. Resolved. 4. Acute on Chronic Anemia: Unknown baseline. Normocytic. Hb 11.2 on admit. Suspect blood loss frombypass surgery. Hb 7.5 09/10/18. No sites of bruising/bleeding noted. H&H q12h. Transfuse for Hb<7. 5. HTN: per history. Titrate prn. 6. CAD: s/p stents per history. DAPT, high intensity statin and BB continued 7. Obesity: BMI 31, diet and exercise encouraged. 8. DVT Prophylaxis: resume chemical ppx when okay per vascular surgery Current living situation: home, alone Expected Disposition: TBD. PT/OT Estimated discharge date: TBD Updated family at bedside 09/09/18 Subjective: Pt without pain today. He feels well. Discussed monitoring Hb as it has dropped since admission. Denies active bleeding/bruising. Nursing staff notes no active bleeding. Physical Exam: BP (!) 134/49 (BP Location: Left arm, Patient Position: Lying) Pulse 97 Temp 98.9 F (37.2 C) (Oral) Resp (!) 20 Ht 6' 2 Wt 111.6 kg (246 lb) SpO2 93% BMI 31.58 kg/m General: NAD, resting in bed Eyes: EOMI ENT: neck supple Cardiovascular: Regular rhythm, tachycardic Respiratory: Clear to auscultation, no rhonchi wheezes or rales Gastrointestinal: Soft, non tender Genitourinary: no suprapubic tenderness Musculoskeletal: LLE in rooke boot Skin: warm Neuro: Awake and alert. No focal deficits. Psych: Mood calm, cooperative Current Medications: aspirin 81 mg Oral Daily atorvastatin 40 mg Oral Nightly clopidogrel 75 mg Oral Daily docusate sodium 100 mg Oral Daily gabapentin 400 mg Oral Q8H SADIA metoprolol succinate 50 mg Oral Daily polyethylene glycol 17 g Oral Daily Labs, Imaging and Studies reviewed: Results from last 7 days Lab Units 09/10/18 0610 09/09/18 2211 09/09/18 1122 09/09/18 0746 09/08/18 0259 WBC K/mcL 7.34 -- -- 6.48 11.23* HGB g/dL 7.5* 8.0* 7.7* 7.7* 10.0* HCT % 22.0* 22.8* 22.9* 23.0* 29.9* PLT K/mcL 234 -- -- 207 209 Results from last 7 days Lab Units 09/10/18 0610 09/09/18 0746 09/08/18 0259 SODIUM mmol/L 134* 135 133* POTASSIUM mmol/L 4.6 4.3 4.5 CHLORIDE mmol/L 99 99 99 BICARB mmol/L 27 28 23 BUN mg/dL 12 13 8 CREATININE mg/dL 0.67* 0.71* 0.56* EGFR mL/min/1.73 m2 91 89 98 GLUCOSE mg/dL 116* 111* 189* CALCIUM mg/dL 8.9 8.9 9.0 Results from last 7 days Lab Units 09/10/18 0610 09/09/18 0746 09/08/18 0259 INR 1.2* 1.2* 1.2* * Vianca Franco DO - 09/09/2018 9:18 AM EST [facility] Inpatient Progress Note 09/09/2018 Tristin Powell 1940 [id number] Assessment/Plan: Tristin Hortensia Sherry is a 78 y.o. male with a history of PVD s/p LLE angio with stent placement 08/09, prostate cancer, PVD, CAD, HTN who presented to [facility] 09/04/2018 as a transfer from [place] for second opinion regarding left lower extremity pain and discoloration that was present two days prior to admit there on 08/30/18. On admit his exam was notable for cool mottled left foot. He was admitted for further work up. Labs prior to transfer notable for Cr 0.7. 1. Critical LLE Ischemia: s/p LLE angiogram 08/09/18 with popliteal balooning and stent in [place], Discharged on ASA and xarelto. Returned to the [facility] with worsening pain and discoloration of his foot. Transferred for second opinion. Exam on admit notable for cool mottled foot. DAPT, high intensity statin and Heparin gtt continued. PV recommended LLE rooke boot with offloading at all times. LLE duplex with occluded stent noted in the left distal superficial femoral artery and popliteal artery. 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 PV recommended DAPT. S/p peroneal femoral bypass 09/07/[address] Sarabia (Vascular Surgery). 2. Acute LLE Pain: in the setting of acute limb ischemia. Pain management folllowed. PO pain control, monitor for resp. Depression. Improved. 3. Opioid induced constipation: No bowel movement since 08/28/18. On narcotics for acute pain. Bowel regimen initiated. Resolved. 4. Acute on Chronic Anemia: Unknown baseline. Normocytic. Hb 11.2 on admit. Suspect blood loss frombypass surgery. Hb 10.0 09/09/18. Monitor. Transfuse for Hb<7. 5. Leukocytosis: WBCs 11 09/08/18. Likely reactive from surgery. Monitor. 6. HTN: per history. Titrate prn. 7. CAD: s/p stents per history. DAPT, high intensity statin and BB continued 8. Obesity: BMI 31, diet and exercise encouraged. 9. DVT Prophylaxis: resume chemical ppx when okay per vascular surgery Current living situation: home, alone Expected Disposition: TBD. PT/OT Estimated discharge date: TBD Updated family at bedside 09/09/18 Subjective: Pt has improved LLE pain since bypass surgery. Admits to some left heel pain today while in Rooke boot. Otherwise no acute overnight events. Physical Exam: BP 138/60 (BP Location: Left arm, Patient Position: Lying) Pulse 94 Temp 98.3 F (36.8 C) (Oral) Resp 14 Ht 6' 2 Wt 111.6 kg (246 lb) SpO2 97% BMI 31.58 kg/m General: NAD, resting in bed Eyes: EOMI ENT: neck supple Cardiovascular: Regular rate Respiratory: Clear to auscultation, no rhonchi wheezes or rales Gastrointestinal: Soft, non tender Genitourinary: no suprapubic tenderness Musculoskeletal: LLE in rooke boot Skin: warm Neuro: Awake and alert. No focal deficits. Psych: Mood calm, cooperative Current Medications: aspirin 81 mg Oral Daily atorvastatin 40 mg Oral Nightly clopidogrel 75 mg Oral Daily docusate sodium 100 mg Oral Daily gabapentin 400 mg Oral Q8H SADIA metoprolol succinate 50 mg Oral Daily polyethylene glycol 17 g Oral Daily Labs, Imaging and Studies reviewed: Results from last 7 days Lab Units 09/08/18 0259 09/07/18 0758 09/06/18 1834 WBC K/mcL 11.23* 5.93 6.34 HGB g/dL 10.0* 10.8* 10.4* HCT % 29.9* 31.6* 30.7* PLT K/mcL 209 212 209 Results from last 7 days Lab Units 09/09/18 0746 09/08/18 0259 09/07/18 0758 SODIUM mmol/L 135 133* 135 POTASSIUM mmol/L 4.3 4.5 4.0 CHLORIDE mmol/L 99 99 99 BICARB mmol/L 28 23 25 BUN mg/dL 13 8 9 CREATININE mg/dL 0.71* 0.56* 0.69* EGFR mL/min/1.73 m2 89 98 90 GLUCOSE mg/dL 111* 189* 110* CALCIUM mg/dL 8.9 9.0 9.4 Results from last 7 days Lab Units 09/09/18 0746 09/08/18 0259 09/07/18 0758 INR 1.2* 1.2* 1.2* * Miryam Rincon MD - 09/09/2018 8:40 AM EST VASCULAR SURGERY PROGRESS NOTE 09/09/18 Patient Name: Tristin Powell : 1940 MR #: [id number] Admit Date: 1070905 Assessment and Plan: Tristin Powell is a 78 y.o. male with a PMH of PVD s/p LLE angio with stent placement 08/09, prostatecancer, PVD, CAD, HTN and a PSH of L ankle ORIF and thriple CABG in october 2016 with L saphenous vein harvested who presented to [facility] 09/04/2018 as a transfer from [place] for second opinion regarding left lower extremity pain and discoloration Chronic LLE ischemia S/p peroneal femoral bypass 09/07/18 - 2 Days Post-Op - Regular diet - Rooke boot LLE - ET consult for skin blistering - Pain and N control - PT/OT, OOB, Encourage IS - Discussed with Dr. Cornell Hair [facility]. No new complaints Physical Examination: Vital Signs: BP 138/60 (BP Location: Left arm, Patient Position: Lying) Pulse 94 Temp 98.3 F (36.8 C) (Oral) Resp 14 Ht 6' 2 Wt 111.6 kg (246 lb) SpO2 97% BMI 31.58 kg/m General: awake and alert, no acute distress Head: normocephalic, atraumatic Eyes: no scleral icterus, pupils equal and round Neck: trachea midline, soft Cardiovascular: hemodynamically stable Pulmonary: nonlabored breathing, equal chest rise Abdomen: soft, non-tender, non-distended, no peritoneal signs Extremities: Doppler (+) R PT/DP, L DP Skin: warm, dry and intact Neurological: Sensation improved to LLE but still decreased, motor intact to B/L LE Laboratory and Additional Data Reviewed: Lab Results Component Value Date WBC 11.23 (H) 09/08/2018 HGB 10.0 (L) 09/08/2018 HCT 29.9 (L) 09/08/2018 MCV 90.6 09/08/2018 PLT 209 09/08/2018 Lab Results Component Value Date GLUCOSE 111 (H) 09/09/2018 CALCIUM 8.9 09/09/2018 NA 135 09/09/2018 K 4.3 09/09/2018 CL 99 09/09/2018 BUN 13 09/09/2018 CREATININE 0.71 (L) 09/09/2018 No results found for: ALT, AST, GGT, ALKPHOS, BILITOT Lab Results Component Value Date INR 1.2 (H) 09/08/2018 INR 1.2 (H) 09/07/2018 PROTIME 14.9 (H) 09/08/2018 PROTIME 14.7 (H) 09/07/2018 Imaging Reviewed: XR OR Angio Add Final Result XR Fluoroscopy Time Final Result XR Chest 1 View Final Result Stable chest. No acute disease. [employer] Workstation ID: [id number] Saphenous vein mapping, limited Final Result Cardiac Catheterization Final Result Ultrasound duplex arterial leg left Final Result XR Comparison Import Final Result Xr Chest 1 View Result Date: 09/07/2018 EXAMINATION: AP CHEST HISTORY: Hypoxia. COMPARISON: 08/01/2018 from [facility]. 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 Coronary artery stents are visualized. Minimal linear scarring at the lung bases, unchanged. No pneumothorax. No definite pleural ef fusion no new opacities. Stable chest. No acute disease. [employer] Workstation ID: [id number] Xr Fluoroscopy Time Result Date: 09/08/2018 This is an auto finalized result. Please refer to patient chart for further information. Saphenous Vein Mapping, Limited Result Date: 09/06/2018 Non-Invasive Vascular Patient: SHERRY TRISTIN Hortensia Robert Rec#: [id number] (Age): 1940(78y) Study Date: 09/06/2018 Room#: 3386 Type: Inpatient Sex: M Reading: Manuel Leonard MD, NATANAEL, RVT Referring: ARISTEO Slinger Sequins: Tom Jeffers RDCS, INOCENCIO Procedure Info: 00670 Study Quality: Lower Vein Map: limited Study Limitations: Lower Vein Map: The exam was technically difficult due to patient positioning. Diagnosis: I73.9 Peripheral vascular disease, unspecified Lower Vein Map Conclusio ns Patent and compressible great saphenous (GSV) vein bilaterally with measurements listed below. The left GSV from the proximal thigh to knee was previously harvested for CABG. The procedure was explained to the patient. The patient voiced understanding. Measurements R Vein Measurements Name Value Units GSV Thigh - prox 4 mm GSV Thigh - mid 3.5 mm GSV Thigh - dist 5.6 mm GSV at Knee 5.7 mm GSV Calf - prox 4.8 mm GSV Calf - mid 3.3 mm GSV Calf - dist 3.6 mm GSV at Ankle 3.7 mm L Vein Measurements Name Value Units GSV Calf - prox 1.8 mm GSV Calf - mid 1.8 mm GSV Calf - dist 2.3 mm GSV at Ankle 1.5 mm Electronically signedat 09/06/2018 11:49:41 by: Manuel Leonard MD, RPVI, RVT Xr Or Angio Add Result Date: 09/08/2018 This is an auto finalized result. Please refer to patient chart for further information. Miryam Rincon MD PGY-2 Surgery [phone] After 5pm and on Weekends, please page [phone] (Surgery Audiometrist electronics engineer) * Joi Vaughan, RN - 09/08/2018 10:53 AM EST Anesthesia Progress Note 1 Day Post-Op Procedure(s): BYPASS PERONEAL FEMORAL, RIGHT SAPHENOUS VEIN HARVEST, COMPLETION ANGIOGRAM Assessment / Plan In no acute distress. Awake and alert, LOC x 3. TISH x 4. Denies post-op nausea, vomiting or sore throat. Questions addressed. Temp: [36.3 C (97.4 F)-37.1 C (98.8 F)] 37.1 C (98.8 F) Heart Rate: [85-100] 96 Resp: [12-22] 20 BP: (133-169)/(62-78) 133/62 SpO2: [93 %-100 %] 100 % * Mohsen Sarabia MD - 09/08/2018 9:48 AM EST POD#1 from L fem to peroneal bypass using contralateral GSV for subacute limb ischemia. Foot feels better this morning. Has burning sensation in foot and incisional pain. BP 133/62 (BP Location: Left arm, Patient Position: Lying) Pulse 96 Temp 98.8 F (37.1 C) (Oral) Resp (!) 20 Ht 6' 2 Wt 111.6 kg (246 lb) SpO2 95% BMI 31.58 kg/m NAD Breathing comfortably All incisions covered c/d/i L foot with dopp PT, peroneal Forefoot still cool with early gangrenous changes of the toes, and bullae -bedrest for today -reg diet -sliv -rooke boot to L foot -wound care consult for foot care, dry dressings and pressure offlaoding for now. * Vianca Franco, DO - 09/08/2018 9:38 AM EST [facility] Tristin Powell 1940 [id number] Assessment/Plan: Tristin Powell is a 78 y.o. male with a history of PVD s/p LLE angio with stent placement 08/09, prostate cancer, PVD, CAD, HTN who presented to [facility] 09/04/2018 as a transfer from [place] for second opinion regarding left lower extremity pain and discoloration that was present two days prior to admit there on 08/30/18. On admit his exam was notable for cool mottled left foot. He was admitted for further work up. Labs prior to transfer notable for Cr 0.7. 1. Critical LLE Ischemia: s/p LLE angiogram 08/09/18 with popliteal balooning and stent in [place], Discharged on ASA and xarelto. Returned to the [facility] with worsening pain and discoloration of his foot. Transferred for second opinion. Exam on admit notable for cool mottled foot. DAPT, high intensity statin and Heparin gtt continued. PV recommended LLE rooke boot with offloading at all times. LLE duplex with occluded stent noted in the left distal superficial femoral artery and popliteal artery. 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 PV recommended DAPT. S/p peroneal femoral bypass 09/07/[address] Sarabia (Vascular Surgery). 2. Acute LLE Pain: in the setting of acute limb ischemia. Pain management folllowed. PO pain control, monitor for resp. Depression. 3. Opioid induced constipation: No bowel movement since 08/28/18. On narcotics for acute pain. Bowel regimen initiated. Resolved. 4. Leukocytosis: WBCs 11 09/08/18. Likely reactive from surgery. Monitor. 5. HTN: per history. Titrate prn. 6. CAD: s/p stents per history. DAPT, high intensity statin and BB continued 7. Obesity: BMI 31, diet and exercise encouraged. 8. DVT Prophylaxis: resume chemical ppx when okay per vascular surgery Current living situation: home, alone Expected Disposition: TBD. PT/OT Estimated discharge date: TBD Updated daughter at bedside 09/05/18 Subjective: Pt has LLE bypass surgery yesterday. Pt somnolent this AM. No family or friends present at bedside. Physical Exam: BP 133/62 (BP Location: Left arm, Patient Position: Lying) Pulse 96 Temp 98.8 F (37.1 C) (Oral) Resp 16 Ht 6' 2 Wt 111.6 kg (246 lb) SpO2 95% BMI 31.58 kg/m General: NAD, resting in bed Eyes: EOMI ENT: neck supple Cardiovascular: Regular rate Respiratory: Clear to auscultation, no rhonchi wheezes or rales Gastrointestinal: Soft, non tender Genitourinary: no suprapubic tenderness Musculoskeletal: No edema Skin: warm Neuro: Somnolent Psych: unable to assess mood as pt sleeping Current Medications: aspirin 81 mg Oral Daily atorvastatin 40 mg Oral Nightly clopidogrel 75 mg Oral Daily docusate sodium 100 mg Oral Daily gabapentin 400 mg Oral Q8H SADIA metoprolol succinate 50 mg Oral Daily polyethylene glycol 17 g Oral Daily Labs, Imaging and Studies reviewed: Results from last 7 days Lab Units 09/08/1825809/07/1875709/06/18 1834 WBC K/mcL 11.23* 5.93 6.34 HGB g/dL 10.0* 10.8* 10.4* HCT % 29.9* 31.6* 30.7* PLT K/mcL 209 212 209 Results from last 7 days Lab Units 09/08/1825809/07/188 09/06/18 0545 SODIUM mmol/L 133* 135 137 POTASSIUM mmol/L 4.5 4.0 4.2 CHLORIDE mmol/L 99 99 101 BICARB mmol/L 23 25 27 BUN mg/dL 8 9 9 CREATININE mg/dL 0.56* 0.69* 0.68* EGFR mL/min/1.73 m2 98 90 91 GLUCOSE mg/dL 189* 110* 98 CALCIUM mg/dL 9.0 9.4 9.5 Results from last 7 days Lab Units 09/08/1825809/07/18 0758 INR 1.2* 1.2* * Esau Alejandro MD - 09/08/2018 9:37 AM EST VASCULAR SURGERY PROGRESS NOTE 09/08/18 Patient Name: Tristin Powell : 1940 MR #: [id number] Admit Date: [id number] Assessment and Plan: Tristin Powell is a 78 y.o. male with a PMH of PVD s/p LLE angio with stent placement 08/09, prostatecancer, PVD, CAD, HTN and a PSH of L ankle ORIF and thriple CABG in october 2016 with L saphenous vein harvested who presented to [facility] 09/04/2018 as a transfer from [place] for second opinion regarding left lower extremity pain and discoloration Chronic LLE ischemia S/p peroneal femoral bypass 09/07/18 - Patient underwent LLE angiogram with popliteal ballooning and stent 08/09/2018 in [place], sent onaspirin and xarelto - Angiography 09/05/18 showed Infrapopliteal Artery Stenosis Left , severe ASPVD with occluded stent.No reasonable endovascular options. - Diet as tolerated, HLIV - Rooke boot LLE - ET consult for skin blistering - Pain and N control - Continue P/O care - Discussed with Dr. Cornell Hair [facility] Physical Examination: Vital Signs: BP 133/62 (BP Location: Left arm, Patient Position: Lying) Pulse 96 Temp 98.8 F (37.1 C) (Oral) Resp 16 Ht 6' 2 Wt 111.6 kg (246 lb) SpO2 95% BMI 31.58 kg/m General: awake and alert, no acute distress Head: normocephalic, atraumatic Eyes: no scleral icterus, pupils equal and round Neck: trachea midline, soft Cardiovascular: hemodynamically stable Pulmonary: nonlabored breathing, equal chest rise Abdomen: soft, non-tender, non-distended, no peritoneal signs Extremities:Dopplerable pulses bilateral DT/PT Skin: warm, dry and intact Neurological: Sensation improved to LLE but still decreased Laboratory and Additional Data Reviewed: Lab Results Component Value Date WBC 11.23 (H) 09/08/2018 HGB 10.0 (L) 09/08/2018 HCT 29.9 (L) 09/08/2018 MCV 90.6 09/08/2018 PLT 209 09/08/2018 Lab Results Component Value Date GLUCOSE 189 (H) 09/08/2018 CALCIUM 9.0 09/08/2018 NA 133 (L) 09/08/2018 K 4.5 09/08/2018 CL 99 09/08/2018 BUN 8 09/08/2018 CREATININE 0.56 (L) 09/08/2018 No results found for: ALT, AST, GGT, ALKPHOS, BILITOT Lab Results Component Value Date INR 1.2 (H) 09/08/2018 INR 1.2 (H) 09/07/2018 PROTIME 14.9 (H) 09/08/2018 PROTIME 14.7 (H) 09/07/2018 Imaging Reviewed: XR OR Angio Add Final Result XR Fluoroscopy Time Final Result XR Chest 1 View Final Result Stable chest. No acute disease. [facility] Workstation ID: [id number] Saphenous vein mapping, limited Final Result Cardiac Catheterization Final Result Ultrasound duplex arterial leg left Final Result XR Comparison Import Final Result Cardiac Catheterization Result Date: 09/05/2018 Patient Name: TRISTIN POWELL Date of : 1940 Procedure Date: 09/05/2018 Physician(s): Ben Hahn MD Cath #: [id number] Ref. Physician: PROCEDURE(S) PERFORMED: Ultrasound- guided vascular access Aortogram: Abdominal with runoff-bilateral Peripheral Angiography Lower Extremity Angiogram - Left Clinical History: Prior CABG: Yes Peripheral Arterial Disease: Yes, , with prior peripheral CMO & PRESIDENT. Dyslipidemia: Yes Hypertension: Yes Pre-OP Diagnosis/Indication: Atkinson Class/Limb Ischemia: 4 - Ischemic rest pain ASA status unchangedimmediately prior to sedation administration. Heart, lungs, and airway assessed prior to sedation. The risks, benefits, and side effects related to alternative treatment options and the risks relatedto not receiving the proposed interventions and care were discussed with the patient. Following informed consent, the patient was brought to the procedure room in the fasting state. bilateral groins was prepped and draped in a sterile fashion. Local anesthesia was attained with 2% Lidocaine to the Right groin region. Using standard technique, sheath(s) were placed in the following site(s): exchanged into the right femoral artery - 6F 45cm Flexor Aashish 1 Sheath Catheters were advanced using standard guide wire technique. Multiple angiographic pictures were taken and appropriate pressures obtained. Hemodynamics: Time AIR REST AO 142/52 (86) SA 14:36:59 After review of the angiography and assurance of the patient's stability, the catheter was withdrawn from the sheath and Closure device placed by - Dr. 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 No reasonable endovascular options. PERIPHERAL RECOMMENDATIONS: Surgical procedure - tibial bypass vs major amputation COMMENTS: No Complications ____ Equipment: Sheath(s) [facility] 5F 10CM PINNACLE SHEATH [employer] MEDICAL 6F 45CM .038 FLEXOR CHECKFLO ANSEL1 SHEATH Wire(s) [employer] .035 X 150CM FIXED J WIRE Catheter(s) [employer] 5F MP TEMPO AQUA CATHETER [employer] .035 CXI ANGLED SUPPORT CATHETERS SHER VASCULAR 6F PROGLIDE CLOSURE Peripheral Angiography: Access site: Femoral Right Retrograde arterial with ultrasound guidance Non Selective: Aorta with ilio-fem runoff Selective: Tibioperoneal artery, retrograde - left See Nursing Notes for further details Signed By Ben Hahn MD On 09/05/20183:50:45 PM Ben Hahn MD ____ Xr Chest 1 View Result Date: 09/07/2018 EXAMINATION: AP CHEST HISTORY: Hypoxia. COMPARISON: 08/01/2018 from [facility]. 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 Coronary artery stents are visualized. Minimal linear scarring at the lung bases, unchanged. No pneumothorax. No definite pleural ef fusion no new opacities. Stable chest. No acute disease. [employer] Workstation ID: [id number] Xr Fluoroscopy Time Result Date: 09/08/2018 This is an auto finalized result. Please refer to patient chart for further information. Saphenous Vein Mapping, Limited Result Date: 09/06/2018 Non-Invasive Vascular Patient: SHERRY Bazan Med Rec#: [id number] (Age): 1940(78y) Study Date: 09/06/2018 Room#: 3386 Type: Inpatient Sex: M Reading: Manuel Leonard MD, NATANAEL, RVT Referring: ARISTEO Slinger Sequins: Tom Jeffers RDCS, INOCENCIO Procedure Info: 92029 Study Quality: Lower Vein Map: limited Study Limitations: Lower Vein Map: The exam was technically difficult due to patient positioning. Diagnosis: I73.9 Peripheral vascular disease, unspecified Lower Vein Map Conclusio ns Patent and compressible great saphenous (GSV) vein bilaterally with measurements listed below. The left GSV from the proximal thigh to knee was previously harvested for CABG. The procedure was explained to the patient. The patient voiced understanding. Measurements R Vein Measurements Name Value Units GSV Thigh - prox 4 mm GSV Thigh - mid 3.5 mm GSV Thigh - dist 5.6 mm GSV at Knee 5.7 mm GSV Calf - prox 4.8 mm GSV Calf - mid 3.3 mm GSV Calf - dist 3.6 mm GSV at Ankle 3.7 mm L Vein Measurements Name Value Units GSV Calf - prox 1.8 mm GSV Calf - mid 1.8 mm GSV Calf - dist 2.3 mm GSV at Ankle 1.5 mm Electronically signedat 09/06/2018 11:49:41 by: Manuel Leonard MD, RPVI, RVT Xr Or Angio Add Result Date: 09/08/2018 This is an auto finalized result. Please refer to patient chart for further information. Esau Alejandro MD General Surgery PGY-1 Pager [phone] *After 5pm, or on weekends, page [phone]* * Sirisha Doshi, RD - 09/07/2018 2:26 PM EST Nutrition Care Initial Assessment Reason for Completion: Dietitian Screen (LOS) Nutrition Diagnosis: No nutrition diagnosis at this time. Nutrition Intervention/Recommendations: - Resume cardiac diet after procedure. - Nutrition Education: No needs at this time Nutrition Prescription: Diet: Diet NPO Except: SIPS WITH MEDS Nutrition Goals: PO intake > 75% most meals Start Date:09/07/2018 Expected End Date:09/13/2018 Assessment: Pertinent Clinical Information: Admitted with LLE critical limb ischemia. Plan for vein mapping andfem-pop bypass today, hopeful for limb salvage. Past Medical History: Diagnosis Date Avascular necrosis of bone of hip (HCC) Claudication (HCC) Herpes zoster Hyperlipidemia Hypertension Prostate cancer (HCC) Vascular disease Pt/family comments: Attempted to visit, prepping for surgery, deferred. Current ht:6' 2 Current wt:.111.6 kg (246 lb) Body mass index is 31.58 kg/m . BMI Classification: Class I Obesity (30-34.9) Wt hx: Wt Readings from Last 5 Encounters: 09/04/18 111.6 kg (246 lb) Appetite: good per flowsheet Recent intake: 75-100% x1 recorded per flowsheet - Current intake likely meets estimated needs. Edema: generalized nonpitting per flowsheet Skin Integrity: LLE venous ulcer per flowsheet GI Function: LBM 09/07 per flowsheet Nutrition-Focused Physical Exam: MARYANN Labs: Recent Labs 09/07/18 0758 NA 135 K 4.0 BICARB 25 CL 99 GLUCOSE 110* BUN 9 CREATININE 0.69* No results found for: HGBA1C? Scheduled Meds: aspirin 81 mg Oral Daily atorvastatin 40 mg Oral Nightly clopidogrel 75 mg Oral Daily docusate sodium 100 mg Oral Daily gabapentin 600 mg Oral Q12H SADIA metoprolol succinate 50 mg Oral Daily polyethylene glycol 17 g Oral Daily Continuous Infusions: dextrose 5% lactated ringers 50 mL/hr (09/07/18 0153) heparin infusion (weight based dosing) 13 Units/kg/hr (09/07/18 1042) ketamine (KETALAR) infusion Estimated Needs: Estimated Energy Needs Total Energy Estimated Needs: 3829-5258 kcal Method for Estimating Needs: MSJ + 20% Total Protein Estimated Needs: 88-106 g Method for Estimating Needs: 1-1.2 g/kg IBW (BMI 24.9) Assessed By: Sirisha Doshi RD, LD * Maranda Meléndez CNP - 09/07/2018 1:15 PM EST Progress Note: [facility] PAIN SERVICE Date: 09/07/2018 Patient name: Tristin Powell Date Of : 1940 Assessment/Plan: Pain of left lower extremity Assessment & Plan -Presented to [facility] 09/04/2018 as a transfer from [place] for second opinion regarding left lower extremity pain and discoloration that was present two days prior to admit there on 08/30. s/p LLE angio withstent placement 08/09 -NARx reviewed, patient prescribed Gabapentin 200 mg TID (last filled #540 tabs for 90 days 07/12/18) and Percocet 5/325 mg (#28 tabs for 7 days 08/23/18) written by Dr. Flash Lovelace -Patient found lying in bed, writhing in pain -Reports pain is uncontrolled with LAGGING MACHINE OPERATOR Dilaudid pump, and pain does not decrease even after he presses his button -Bypass Peroneal femoral, right saphenous vein harvest, completion angiogram on right planned for today (09/07/18) with Dr. Sarabia, still pending -Discontinue IV Dilaudid- pt feels [...] sensitization, hyperalgesia and opioid tolerance. Of note, Ketaminedoes not need to be weaned. It can [...] paradise Fernandez RN -Please call with questions Subjective/Objective: Perpetual Assessment: Tristin Powell is a 78 y.o. y/o male on hospital day 3 as transfer from [place] for second opinion for LLE pain and discoloration. S/p LLE angio with stent placement 08/09/18. HPI: Patient found writhing in bed, holding his left leg; family members at bedside. He is alert and oriented, and appears extremely uncomfortable. Patient states he needs something for his pain now;LAGGING MACHINE OPERATOR Dilaudid drip still in place. Family asking when his surgery will occur, as he is just sitting in severe pain. Discussed that we anticipate his pain to improve following the procedure, but are unaware of the time for surgery. When asked if his IV Dilaudid has been helpful, Mr. Powell replies, no.Discussed adding continuous drip to help with pain, as he and his family have been monitoring heavily the time in which he is allowed to push the button. Patient begins pleading to have something given to him for pain relief. Denies side effects/sedation from current regimen. Chief Complaint: SNOMED CT(R) 1. Ischemic foot ISCHEMIC FOOT 2. PAD (peripheral artery disease) (HCC) PERIPHERAL VASCULAR DISEASE Patient Active Problem List Diagnosis SNOMED CT(R) Critical lower limb ischemia CRITICAL LOWER LIMB ISCHEMIA Coronary artery disease involving coronary bypass graft of [place] heart without angina pectoris ARTERIOSCLEROSIS OF CORONARY ARTERY BYPASS GRAFT Hypercholesteremia HYPERCHOLESTEROLEMIA Essential hypertension ESSENTIAL HYPERTENSION Class 1 obesity with body mass index (BMI) of 31.0 to 31.9 in adult OBESITY Pain of left lower extremity PAIN IN LEFT LOWER LIMB Length of stay: 3 Review of Systems: The following system(s) were reviewed: All other systems reviewed and negative other than HPI. Physical Examination: BP 148/72 (BP Location: Left arm, Patient Position: Sitting) Pulse 89 Temp 98.7 F (37.1 C) (Oral) Resp 16 Ht 6' 2 Wt 111.6 kg (246 lb) SpO2 95% BMI 31.58 kg/m Constitutional: Alert, appears to be extremely uncomfortable, restless in pain, appears stated age Eyes: conjunctiva/corneas clear, EOM's intact Ears, Nose, Mouth and Throat: No masses, mucosal membrane intact Neck: Symmetrical, trachea midline Respiratory: Respirations unlabored,normal respiratory effort Cardiovascular: Regular rate and rhythm Chest : No tenderness or deformity Gastrointestinal (Abdomen): Soft, non-tender Genitourinary: Not examined Back: Symmetric, no curvature, ROM Skin: Skin color, texture wnl, no rashes or lesions Musculoskeletal: LUU x 4, Left foot cool to touch with discoloration Neurologic: Sensation intact, no tremors noted throughout Psych: Anxious, Tearful Intake/Output last 3 shifts: I/O last 3 completed shifts: In: 910.4 [P.O.:420; I.V.:490.4] Out: 550 [Urine:550] Results/Medications Reviewed 09/07/18 2:48 PM: Laboratory, Microbiology, Cardiology, Medications and Transcriptions Medications: Scheduled Meds: aspirin 81 mg Oral Daily atorvastatin 40 mg Oral Nightly clopidogrel 75 mg Oral Daily docusate sodium 100 mg Oral Daily gabapentin 400 mg Oral Q8H SADIA metoprolol succinate 50 mg Oral Daily polyethylene glycol 17 g Oral Daily Continuous Infusions: dextrose 5% lactated ringers 50 mL/hr (09/07/18 0153) heparin infusion (weight based dosing) 13 Units/kg/hr (09/07/18 1042) ketamine (KETALAR) infusion PRN Meds: acetaminophen, atropine, bisacodyl, heparin, nitroGLYCERIN, oxyCODONE, prochlorperazine (COMPAZINE) injection, sodium chloride 0.9% LABS: Reviewed Results from last 7 days Lab Units 09/07/18 0758 09/06/18 2219 09/06/18 1834 09/06/18 0545 09/05/18 0957 09/05/18 0321 WBC K/mcL 5.93 -- 6.34 7.03 -- 5.56 HGB g/dL 10.8* -- 10.4* 10.7* -- 10.7* HCT % 31.6* -- 30.7* 32.0* -- 31.8* PLT K/mcL 212 -- 209 232 -- 224 INR 1.2* -- -- -- -- -- PTT seconds 47* 38* -- -- 59* 50* SODIUM mmol/L 135 -- -- 137 -- 137 POTASSIUM mmol/L 4.0 -- -- 4.2 -- 3.9 CHLORIDE mmol/L 99 -- -- 101 -- 102 BUN mg/dL 9 -- -- 9 -- 6* CREATININE mg/dL 0.69* -- -- 0.68* -- 0.65* GLUCOSE mg/dL 110* -- -- 98 -- 91 CALCIUM mg/dL 9.4 -- -- 9.5 -- 9.3 Assessment Detail: The total time spent for this visit was 35 minutes. Greater than 50% of the time was spent in counseling and coordination of care regarding pain and plan of care. * Vianca Franco DO - 09/07/2018 10:15 AM EST [facility]/07/2018 Tristin Hortensia Sherry 1940 [id number] Assessment/Plan: Tristin Hortensia Powell is a 78 y.o. male with a history of PVD s/p LLE angio with stent placement 08/09, prostate cancer, PVD, CAD, HTN who presented to [facility] 09/04/2018 as a transfer from [place] for second opinion regarding left lower extremity pain and discoloration that was present two days prior to admit there on 08/30. On admit his exam was notable for cool mottled left foot. He was admitted for further work up. Labs prior to transfer notable for Cr 0.7. 1. Critical LLE Ischemia: s/p LLE angio 08/09, Discharged on xeralto. Returned to the [facility] with worsening pain and discoloration of his foot. Transferred for second opinion. Exam on admit notable for cool mottled foot. DAPT, high intensity statin and Heparin gtt continued. PV recommended LLE rooke boot with offloading at all times. LLE duplex with occluded stent noted in the left distal superficial femoral artery and popliteal artery. 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 PV recommended DAPT. CTS recommended stat b/l LE vein mapping and possible LLE bypass. Bypass surgery 09/07/18 per CTS. 2. Acute LLE Pain: in the setting of acute limb ischemia.On dilaudid LAGGING MACHINE OPERATOR per pain management. 3. Opioid induced constipation: No bowel movement since 08/28/18. On narcotics for acute pain. Bowel regimen initiated. Resolved. 4. HTN: per history. Titrate prn. 5. CAD: s/p stents per history. DAPT, high intensity statin and BB continued 6. Obesity: BMI 31, diet and exercise encouraged. 7. DVT Prophylaxis: chemical ppx for possible bypass surgery Current living situation: home, alone Expected Disposition: TBD. PT/OT Estimated discharge date: TBD Updated daughter at bedside 09/05/18 Subjective: Nursing concerned this AM that pt has uncontrolled LLE pain. Currently on Dilaudid LAGGING MACHINE OPERATOR pump and pt is maxing his dose at 1.5mg q1h. Pt states he has continued pain in LLE. Instructed nursing staff tocontact pain management for updated pain plan/LAGGING MACHINE OPERATOR titration. Plan for bypass surgery today. Physical Exam: BP (!) 191/70 (BP Location: Left arm, Patient Position: Lying) Pulse 91 Temp 98.6 F (37 C) (Oral) Resp 16 Ht 6' 2 Wt 111.6 kg (246 lb) SpO2 96% BMI 31.58 kg/m General: NAD, obese, resting in bed Eyes: EOMI ENT: neck supple Cardiovascular: Regular rate Respiratory: Clear to auscultation, no rhonchi wheezes or rales Gastrointestinal: Soft, non tender Genitourinary: no suprapubic tenderness Musculoskeletal: No edema Skin: LLE in rooke boot Neuro: Alert and awake. No focal deficits. Psych: Mood calm, cooperative Current Medications: aspirin 81 mg Oral Daily atorvastatin 40 mg Oral Nightly clopidogrel 75 mg Oral Daily docusate sodium 100 mg Oral Daily gabapentin 300 mg Oral Q12H SADIA HYDROmorphone 1 mg Intravenous Once magnesium citrate 296 mL Oral Once metoprolol 5 mg Intravenous Once metoprolol succinate 50 mg Oral Daily polyethylene glycol 17 g Oral Daily senna-docusate 1 tablet Oral BID Labs, Imaging and Studies reviewed: Results from last 7 days Lab Units 09/07/18 0758 09/06/18 1834 09/06/18 0545 WBC K/mcL 5.93 6.34 7.03 HGB g/dL 10.8* 10.4* 10.7* HCT % 31.6* 30.7* 32.0* PLT K/mcL 212 209 232 Results from last 7 days Lab Units 09/07/18 0758 09/06/18 0545 09/05/18 0321 SODIUM mmol/L 135 137 137 POTASSIUM mmol/L 4.0 4.2 3.9 CHLORIDE mmol/L 99 101 102 BICARB mmol/L 25 27 25 BUN mg/dL 9 9 6* CREATININE mg/dL 0.69* 0.68* 0.65* EGFR mL/min/1.73 m2 90 91 93 GLUCOSE mg/dL 110* 98 91 CALCIUM mg/dL 9.4 9.5 9.3 Results from last 7 days Lab Units 09/07/18 0758 INR 1.2* * Vianca Franco DO - 09/06/2018 11:35 AM EST [facility]/06/2018 Tristin Hortensia Sherry 1940 [id number] Assessment/Plan: Tristin Hortensia Powell is a 78 y.o. male with a history of PVD s/p LLE angio with stent placement 08/09, prostate cancer, PVD, CAD, HTN who presented to [facility] 09/04/2018 as a transfer from [place] for second opinion regarding left lower extremity pain and discoloration that was present two days prior to admit there on 08/30. On admit his exam was notable for cool mottled left foot. He was admitted for further work up. Labs prior to transfer notable for Cr 0.7. 1. Critical LLE Ischemia: s/p LLE angio 08/09, Discharged on xeralto. Returned to the [facility] with worsening pain and discoloration of his foot. Transferred for second opinion. Exam on admit notable for cool mottled foot. DAPT, high intensity statin and Heparin gtt continued. PV recommended LLE rooke boot with offloading at all times. LLE duplex with occluded stent noted in the left distal superficial femoral artery and popliteal artery. 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 PV recommended DAPT. CTS recommended stat b/l LE vein mapping and possible LLE bypass. 2. Acute LLE Pain: in the setting of acute limb ischemia. IV/PO pain medications ordered. Pain management consulted. 3. Opioid induced constipation: No bowel movement since 08/28/18. On narcotics for acute pain. Bowel regimen initiated. 4. HTN: per history. Titrate prn. 5. CAD: s/p stents per history. DAPT, high intensity statin and BB continued 6. Obesity: BMI 31, diet and exercise encouraged. 7. DVT Prophylaxis: chemical ppx for possible bypass surgery Current living situation: home, alone Expected Disposition: TBD. PT/OT Estimated discharge date: TBD Updated daughter at bedside 09/05/18 Subjective: Pt had no endovascular options available to him per PV yesterday. Pt complaining of persistent LLE pain. Still has not had a BM. Discussed plan for LLE vein mapping and possible bypass surgery. Pt agreeable. Physical Exam: BP 133/73 (BP Location: Left arm, Patient Position: Lying) Pulse 87 Temp 98.8 F (37.1 C) (Oral) Resp 16 Ht 6' 2 Wt 111.6 kg (246 lb) SpO2 96% BMI 31.58 kg/m General: NAD, obese, sitting up at side of bed Eyes: EOMI ENT: neck supple Cardiovascular: Regular rate Respiratory: Clear to auscultation, no rhonchi wheezes or rales Gastrointestinal: Soft, non tender Genitourinary: no suprapubic tenderness Musculoskeletal: No edema Skin: dry left foot cool to touch with areas of cyanosis unable to palpate pulse non tender to touch Neuro: Alert and awake. No focal deficits. Psych: Mood calm, cooperative Current Medications: aspirin 81 mg Oral Daily aspirin 162 mg Oral Daily atorvastatin 40 mg Oral Nightly clopidogrel 75 mg Oral Daily docusate sodium 100 mg Oral Daily gabapentin 300 mg Oral Q12H SADIA metoprolol succinate 50 mg Oral Daily polyethylene glycol 17 g Oral Daily senna-docusate 1 tablet Oral BID Labs, Imaging and Studies reviewed: Results from last 7 days Lab Units 09/06/18 0545 09/05/18 0321 09/04/18 1930 WBC K/mcL 7.03 5.56 6.36 HGB g/dL 10.7* 10.7* 11.2* HCT % 32.0* 31.8* 33.3* PLT K/mcL 232 224 222 Results from last 7 days Lab Units 09/06/18 0545 09/05/18 0321 SODIUM mmol/L 137 137 POTASSIUM mmol/L 4.2 3.9 CHLORIDE mmol/L 101 102 BICARB mmol/L 27 25 BUN mg/dL 9 6* CREATININE mg/dL 0.68* 0.65* EGFR mL/min/1.73 m2 91 93 GLUCOSE mg/dL 98 91 CALCIUM mg/dL 9.5 9.3 * Yasmeen Diaz CNP - 09/06/2018 7:37 AM EST [facility] Heart & Vascular Cardiology Daily Progress Note Name: Tristin Powell Age: 78 y.o. Date: September 06, 2018 ASSESSMENT & PLAN: Critical lower limb ischemia Assessment & Plan Pt s/p LLE angiogram with Dr Hahn who feels that the pt has no further endovascular options. He has consulted Dr. Sarabia for a possible tibial bypass. Pt s/p LLE critical limb ischemia Atkinson class 4 rest pain with distal discoloration to his toes. Pt is s/p L pop angioplasty with stent placement 08/09 at [facility] in [place], [place]. Ptwas placed on Xarelto and ASA. Pt represented to that hospiral 08/30 with increased LLE pain. On exampt has palpable bilateral femoral pulses and popliteal pulses. Unable to obtain by doppler BLE R orL DP/PT pulses. LLE is discolored *see images in this note. Plan: Continue heparin at this time Continue Rooke boot to left lower extremity. Continue ASA, Plavix and high intensity statin medication. Will sign off Coronary artery disease involving coronary bypass graft of [place] heart without angina pectoris Assessment & Plan Patient with remote coronary artery bypass grafting to 3 vessels. Patient denies chest pain at thistime. Hypercholesteremia Assessment & Plan Patient with history of hypercholesteremia. Plan: Continue high intensity statin medication Risk factor modification. Essential hypertension Assessment & Plan Patient with history of hypertension. Blood pressure at this time 132/62. Plan: Continue medications as prescribed. Class 1 obesity with body mass index (BMI) of 31.0 to 31.9 in adult Assessment & Plan Patient with BMI greater than 30. Plan: Patient with BMI >30. According to the NIH and USPSTF, it is recommended that the patient lose weight utilizing a combination of dietary (reduction in calories of 500 to 1,000 kcal/day) and behavioral therapies, in addition to increasing physical activity (30 to 45 minutes for 3 to 5 days per week) for a goal BMI <30. SUBJECTIVE: No new subjective & objective note has been filed under this hospital service since the last note was generated. ALLERGIES: I have reviewed the patient's allergies. Patient has no known allergies. CURRENT MEDICATIONS: Current Facility-Administered Medications Medication Dose Route Frequency Provider Last Rate Last Dose acetaminophen (TYLENOL) tablet 650 mg 650 mg Oral Q4H PRN Mirna Mckeon MD aspirin chewable tablet 81 mg 81 mg Oral Daily Yasmeen Diaz CNP 81 mg at 09/05/18 09 aspirin EC tablet 162 mg 162 mg Oral Daily Mirna Mckeon MD 162 mg at 09/05/18 175 atorvastatin (LIPITOR) tablet 40 mg 40 mg Oral Nightly Mirna Mckeon MD 40 mg at 09/05/182030 atropine injection 1 mg 1 mg Intravenous PRN Ben Hahn MD bisacodyl (DULCOLAX) EC tablet 5 mg 5 mg Oral Daily PRN Mirna Mckeon MD clopidogrel (PLAVIX) tablet 75 mg 75 mg Oral Daily Mirna Mckeon MD 75 mg at 09/05/18 0951 docusate sodium (COLACE) capsule 100 mg 100 mg Oral Daily Mirna Mckeon MD 100 mg at 952 gabapentin (NEURONTIN) capsule 300 mg 300 mg Oral Q12H SAIDA Mirna Mckeon MD 300 mg at 09/05/18 2031 heparin (porcine) 25,000 unit/250 mL(100 unit/mL) in D5W infusion 0-70 Units/kg/hr (Order-Specific)Intravenous Continuous Tianapankaj Em, Stopped at 09/05/18 1542 HYDROmorphone (DILAUDID) 0.5 mg/mL injection 0.25-0.5 mg 0.25-0.5 mg Intravenous Q3H PRN Mirna Mckeon MD 0.5 mg at 09/06/18 0442 metoprolol succinate (TOPROL-XL) 24 hr tablet 50 mg 50 mg Oral Daily Mirna Mckeon MD 50 mg at 09/05/18 1754 naloxone (NARCAN) injection 0.1 mg 0.1 mg Intravenous PRN Mirna Mckeon MD And naloxone (NARCAN) injection 0.4 mg 0.4 mg Intravenous PRN Mirna Mckeon MD nitroGLYCERIN (NITROSTAT) SL tablet 0.4 mg 0.4 mg Sublingual Q5 Min PRN Yasmeen Diaz CNP ondansetron (ZOFRAN-ODT) disintegrating tablet 4 mg 4 mg Oral Q6H PRN Mirna Mckeon MD Or ondansetron (ZOFRAN) injection 4 mg 4 mg Intravenous Q6H PRN Mirna Mckeon MD 4 mg at 09/05/18 2205 ondansetron (ZOFRAN-ODT) disintegrating tablet 4 mg 4 mg Oral Q6H PRN Ben Hanh MD 4 mg at 09/05/18 1905 Or ondansetron (ZOFRAN) injection 4 mg 4 mg Intravenous Q6H PRN Ben Hahn MD oxyCODONE (ROXICODONE) immediate release tablet 5-10 mg 5-10 mg Oral Q4H PRN Mirna Mckeon MD5 mg at 09/06/18 0328 polyethylene glycol (MIRALAX) powder 17 g 17 g Oral Daily Mirna Mckeon MD prochlorperazine (COMPAZINE) injection 5 mg 5 mg Intravenous Q6H PRN Leida Matos MD senna-docusate (SENNA-S) 8.6-50 mg per tablet 1 tablet 1 tablet Oral BID Mirna Mckeon MD 1 tablet at 09/05/182030 sodium chloride 0.9% (NS) bolus 250 mL 250 mL Intravenous PRN Ben Hahn MD sodium chloride 0.9% (NS) 20 mL/hr Intravenous Continuous Yasmeen Diaz CNP 20 mL/hr at 09/06/18 0029 20 mL/hr at 09/06/18 0029 Review of Systems Constitution: Negative for chills, fever, weakness and malaise/fatigue. HENT: Negative for congestion and ear pain. Eyes: Negative for blurred vision and visual disturbance. Cardiovascular: Negative for chest pain, claudication, dyspnea on exertion, irregular heartbeat andpalpitations. Respiratory: Negative for cough and shortness of breath. Endocrine: Negative for cold intolerance and heat intolerance. Hematologic/Lymphatic: Negative for bleeding problem. Skin: Positive for color change. Negative for flushing. Musculoskeletal: Negative for back pain, muscle weakness and myalgias. Gastrointestinal: Negative for abdominal pain and change in bowel habit. Genitourinary: Negative for frequency and urgency. Neurological: Negative for dizziness, headaches, light-headedness, loss of balance, numbness and paresthesias. Psychiatric/Behavioral: Negative for altered mental status. PHYSICAL EXAMINATION: Vital Signs: BP 116/66 (BP Location: Left arm, Patient Position: Lying) Pulse (!) 102 Temp 98.5 F (36.9 C) (Oral) Resp 14 Ht 6' 2 Wt 111.6 kg (246 lb) SpO2 92% BMI 31.58 kg/m General: Alert, cooperative, no distress, appears stated age Head: Normocephalic, without obvious abnormality, atraumatic Eyes: PERRL, conjunctiva/corneas clear, EOM's intact, fundi benign both eyes Throat: Lips, mucosa, and tongue normal; teeth and gums normal Neck: Supple, symmetrical, trachea midline, no adenopathy; thyroid: no enlargement/tenderness/nodules; no carotid bruit or JVD Back: Symmetric, no curvature, ROM normal, no CVA tenderness Lungs: Clear to auscultation bilaterally, respirations unlabored,normal respiratory effort Chest Wall: No tenderness or deformity Cardiovascular: Regular rate and rhythm, S1 and S2 normal, no murmur, rub or gallop Abdomen: Soft, non-tender, bowel sounds active all four quadrants,no masses, no organomegaly Extremities: Normal, atraumatic, no cyanosis or edema Skin: *see images Musculoskeletal: Full range of motion of all extremities; no joint edema Neurologic: CNII-XII intact; normal strength, sensation and reflexes throughout Psych: Mood and affect appropriate LABS: No results found for: CHOL, TRIG, HDL, LDLDIRECT Lab Results Component Value Date NA 137 09/06/2018 K 4.2 09/06/2018 CL 101 09/06/2018 BUN 9 09/06/2018 CREATININE 0.68 (L) 09/06/2018 GLUCOSE 98 09/06/2018 CALCIUM 9.5 09/06/2018 Lab Results Component Value Date WBC 7.03 09/06/2018 HGB 10.7 (L) 09/06/2018 HCT 32.0 (L) 09/06/2018 MCV 89.4 09/06/2018 PLT 232 09/06/2018 No results found for: CKTOTAL, CKMB, TROPONINI, TROPONINT Yasmeen Diaz, MSN, [employer] Nurse Practitioner 09/06/2018 * Vianca Franco DO - 09/05/2018 11:11 AM EST [facility]2018 Tristin Powell 1940 [id number] Assessment/Plan: Tristin Powell is a 78 y.o. male with a history of PVD s/p LLE angio with stent placement 08/09, prostate cancer, PVD, CAD, HTN who presented to [facility] 09/04/2018 as a transfer from [place] for second opinion regarding left lower extremity pain and discoloration that was present two days prior to admit there on 08/30. On admit his exam was notable for cool mottled left foot. He was admitted for further work up. Labs prior to transfer notable for Cr 0.7. 1. Claudication in the setting of PVD: s/p LLE angio 08/09, Discharged on xeralto. [facility]ed to the [facility] with worsening pain and discoloration of his foot. Transferred for second opinion. Exam on admitnotable for cool mottled foot. DAPT, high intensity statin and Heparin gtt continued. PV recommended LLE rooke boot with offloading at all times. LLE duplex with occluded stent noted in the left distal superficial femoral artery and popliteal artery. LLE angiogram ordered with plan for urgent revascularization 09/05/18. PV following. 2. Acute LLE Pain: in the setting of acute limb ischemia. IV/PO pain medications ordered. 3. Opioid induced constipation: No bowel movement since 08/28/18. On narcotics for acute pain. Bowel regimen initiated. 4. HTN: per history. Titrate prn. 5. CAD: s/p stents per history. DAPT, high intensity statin and BB continued 6. Obesity: BMI 31, diet and exercise encouraged. 7. DVT Prophylaxis: Heparin gtt Current living situation: home, alone Expected Disposition: TBD. PT/OT Estimated discharge date: TBD Updated daughter at bedside 09/05/18 Subjective: Patient new to me. I reviewed prior medical records and history in EMR and have summarized my findings in the assessment and plan above. Pt sleeping upon entering the room this AM. Pt's daughter present at bedside. Pt complaining of constipation since 08/28/18 and requests laxatives. Discussed my concern for LLE and need for vascular toevaluate. Pt's daughter agitated and stating pt is in severe pain and needs IV pain medications. Physical Exam: BP (!) 161/78 (BP Location: Right arm, Patient Position: Lying) Pulse 94 Temp 98.6 F (37 C) (Oral) Resp (!) 19 Ht 6' 2 Wt 111.6 kg (246 lb) SpO2 96% BMI 31.58 kg/m General: NAD, obese, resting comfortably in bed Eyes: EOMI ENT: neck supple Cardiovascular: Regular rate Respiratory: Clear to auscultation, no rhonchi wheezes or rales Gastrointestinal: Soft, non tender Genitourinary: no suprapubic tenderness Musculoskeletal: No edema Skin: dry left foot cool to touch with areas of cyanosis unable to palpate pulse non tender to touch Neuro: Alert and awake. No focal deficits. Psych: Mood agitated Current Medications: aspirin 81 mg Oral Daily atorvastatin 40 mg Oral Nightly clopidogrel 75 mg Oral Daily docusate sodium 100 mg Oral Daily gabapentin 300 mg Oral Q12H SADIA polyethylene glycol 17 g Oral Daily senna-docusate 1 tablet Oral BID Labs, Imaging and Studies reviewed: Results from last 7 days Lab Units 09/05/18 0321 09/04/18 1930 WBC K/mcL 5.56 6.36 HGB g/dL 10.7* 11.2* HCT % 31.8* 33.3* PLT K/mcL 224 222 Results from last 7 days Lab Units 09/05/18 0321 SODIUM mmol/L 137 POTASSIUM mmol/L 3.9 CHLORIDE mmol/L 102 BICARB mmol/L 25 BUN mg/dL 6* CREATININE mg/dL 0.65* EGFR mL/min/1.73 m2 93 GLUCOSE mg/dL 91 CALCIUM mg/dL 9.3 in this encounter* Flynn Mann DPM - 09/20/2018 5:54 PM EST Patient Name: Tristin Powell MR #: [id number] : 1940 Physicians: Flash Lovelace MD (Family); No ref. provider found (Referring) History of Present Illness: Tristin Powell is a 78 y.o. male Dictation on: 09/20/2018 5:58 PM by: FLYNN MANN [[id number]] History: The following portions of the patient's history were reviewed and updated as appropriate: allergies, current medications, past family history, past medical history, past social history, past surgicalhistory and problem list. Allergy Information: I have reviewed the patient's allergies. Oxycodone Home Medications: Current Outpatient Medications Medication Sig Dispense Refill aspirin 81 MG EC tablet Take 81 mg by mouth daily . atorvastatin (LIPITOR) 40 MG tablet Take by mouth . clopidogrel (PLAVIX) 75 mg tablet Take 1 (one) tablet (75 mg total) by mouth daily . 30 tablet 1 doxycycline hyclate (VIBRA-TABS) 100 MG tablet Take 1 (one) tablet (100 mg total) by mouth 2 (two) times a day for 10 days . 20 tablet 0 gabapentin (NEURONTIN) 400 MG capsule Take 1 (one) capsule (400 mg total) by mouth every 8 (eight) hours . 90 capsule 1 magnesium citrate solution Take 296 mL by mouth as needed (Take if no bowel movement for 2-3 days) . 296 mL 0 metoprolol tartrate (LOPRESSOR) 50 MG tablet Take 50 mg by mouth 2 (two) times a day . ondansetron (ZOFRAN) 4 MG tablet Take 1 (one) tablet (4 mg total) by mouth every 8 (eight) hours asneeded for nausea . 20 tablet 0 oxyCODONE (ROXICODONE) 5 MG immediate release tablet Take 1 (one) tablet (5 mg total) by mouth every 6 (six) hours as needed for pain . 28 tablet 0 polyethylene glycol (MIRALAX) 17 gram powder Take 17 (seventeen) g by mouth daily for 7 days . 255 g 0 povidone-iodine (BETADINE) 10 % external solution Apply topically as needed for wound care Apply daily to foot . 480 mL 0 senna-docusate (SENNA-S) 8.6-50 mg Take 2 (two) tablets by mouth 2 (two) times a day . 120 tablet 0 No current facility-administered medications for this visit. Review of Systems: The following system(s) were reviewed and pertinent findings noted: Constitutional: negative Cardiovascular: positive for left LE PAD and CLI Integumentary: ulceration Musculoskeletal:negative Neurological: negative Physical Examination: Vital Signs: BP 136/75 Pulse 92 Temp 97.9 F (36.6 C) (Oral) Resp 16 Ht 6' 2 Wt 107 kg (236 lb) BMI 30.30 kg/m Wound (Outpatient Only) 09/20/18 1 Foot Left (Active) Wound Image 09/20/2018 2:00 PM Wound Length (cm) 14 cm 09/20/2018 2:00 PM Wound Width (cm) 13.5 cm 09/20/2018 2:00 PM Wound Depth (cm) 0.1 cm 09/20/2018 2:00 PM Wound Surface Area (cm^2) 189 cm^2 09/20/2018 2:00 PM Wound Volume (cm^3) 18.9 cm^3 09/20/2018 2:00 PM Area % Change 0 09/20/2018 2:00 PM Volume % Change 0 09/20/2018 2:00 PM Wound Encounter Initial 09/20/2018 2:00 PM Wound Progress Initial exam 09/20/2018 2:00 PM Non-staged Wound Description Full thickness 09/20/2018 2:00 PM Drainage Amount Scant 09/20/2018 2:00 PM Drainage Description Serous 09/20/2018 2:00 PM Odor None 09/20/2018 2:00 PM Wound Margin Undefined 09/20/2018 2:00 PM Adherent Yellow Slough % 1-25% 09/20/2018 2:00 PM Moist Yellow Slough % None 09/20/2018 2:00 PM Dry Black Eschar % 76-100% 09/20/2018 2:00 PM Moist Black Eschar % None 09/20/2018 2:00 PM Epithelialization % None 09/20/2018 2:00 PM Granulation % 1-25% 09/20/2018 2:00 PM Exposed Structure None 09/20/2018 2:00 PM Wound Bed Characteristics Black;Yellow;Red;Carver 09/20/2018 2:00 PM Edna-wound Assessment Dry;Ecchymosis 09/20/2018 2:00 PM Treatments Not Applicable 09/20/2018 2:00 PM Hemostasis Not applicable 09/20/2018 2:00 PM Cleansed Sterile saline 09/20/2018 2:00 PM Primary Dressing Betadine;Impregnated gauze 09/20/2018 2:00 PM Secondary Dressing Dry gauze dressing;Gauze roll;Gauze pad 09/20/2018 2:00 PM Compression Dressing Not Applicable 09/20/2018 2:00 PM Dictation on: 09/20/2018 5:59 PM by: FLYNN MANN [[id number]] Assessment and Plan: SNOMED CT(R) 1. Critical lower limb ischemia CRITICAL LOWER LIMB ISCHEMIA Prealbumin Albumin Protein,Total XR Foot Left 3+ Views (Standard) XR Ankle Left 3+ Views (Standard) 2. Gangrene (HCC) GANGRENOUS DISORDER 3. PVD (peripheral vascular disease) (HCC) PERIPHERAL VASCULAR DISEASE 4. Left foot pain PAIN IN LEFT FOOT Dictation on: 09/20/2018 6:00 PM by: FLYNN MANN [[id number]] Flynn Mann DPM, FACFAS Electronically signed by the above physician 09/20/18 * Lori Velez RN - 09/20/2018 2:29 PM EST Patient arrived to wound clinic for assessment of left foot. Patient is 2 weeks post bypass tomorrow 09/21/18. Patient is complaining of tightness and pain 7/10 in the posterior leg from mid thigh to mid calf. Patient is scheduled with Dr. Sarabia on 10/03/18. Considering 2 weeks until patient sees , this RN contacted her office. Dr. Sarabia did stop up in clinic to see patient. encouraged a light rio wrap to area with concern for hematoma post op d/t acute event. Left DP and PT pulses audible on doppler with Dr. Sarabia present. Dr. Sarabia also suggested a warm compress or ice,whichever feels better to the patient. Patient is scheduled with Dr. Sarabia on 10/03/18 and will f/u with her then. in this encounter* Mine Lew LISW - 09/27/2018 10:35 AM EST [facility] faxed signed orders from pt's 09/20/18 clinic visit to pt's [facility] [place]. [facility] previously faxed same on 09/20/18 but now signed by physician. in this encounter* Radha Parker RN - 10/04/2018 4:59 PM EST Patient was admitted to [facility] for surgery. * Flynn Mann DPM - 10/04/2018 4:50 PM EST Patient Name: Tristin Powell MR #: [id number] : 1940 Physicians: Flash Lovelace MD (Family); No ref. provider found (Referring) History of Present Illness: Tristin Powell is a 78 y.o. male This patient presents for followup with a history of a left forefoot critical limb ischemia with peripheral arterial disease with a gangrenous left forefoot and midfoot. Patient still reports pain inthe lower extremity, but it is under a little better control now. No acute nausea, vomiting, fever,chills, or night sweats. He is status post bypass surgery with Dr. Sarabia at [facility] on 09/07/2018. No new complaints per patient. He presents for discussion about definitive treatment for the left forefoot necrosis. History: The following portions of the patient's history were reviewed and updated as appropriate: allergies, current medications, past family history, past medical history, past social history, past surgicalhistory and problem list. Allergy Information: I have reviewed the patient's allergies. Oxycodone Home Medications: No current facility-administered medications for this visit. No current outpatient medications on file. Review of Systems: The following system(s) were reviewed and pertinent findings noted: Constitutional: negative Cardiovascular: positive for PAD and CLI with left foot gangrene Integumentary: ulceration Musculoskeletal:negative Neurological: negative Physical Examination: Vital Signs: BP (!) 154/80 Pulse 87 Temp 98.2 F (36.8 C) (Oral) Resp 16 Wound (Outpatient Only) 09/20/18 1 Foot Left (Active) Wound Image 09/20/2018 2:00 PM Wound Length (cm) 11 cm 10/04/2018 1:00 PM Wound Width (cm) 11 cm 10/04/2018 1:00 PM Wound Depth (cm) 0.1 cm 10/04/2018 1:00 PM Wound Surface Area (cm^2) 121 cm^2 10/04/2018 1:00 PM Wound Volume (cm^3) 12.1 cm^3 10/04/2018 1:00 PM Area % Change -35.98 10/04/2018 1:00 PM Volume % Change 0 10/04/2018 1:00 PM Wound Encounter Subsequent 10/04/2018 1:00 PM Wound Progress Improving 10/04/2018 1:00 PM Non-staged Wound Description Eschar covered 10/04/2018 1:00 PM Drainage Amount None 10/04/2018 1:00 PM Drainage Description Serous 09/20/2018 2:00 PM Odor None 10/04/2018 1:00 PM Wound Margin Undefined 10/04/2018 1:00 PM Adherent Yellow Slough % None 10/04/2018 1:00 PM Moist Yellow Slough % None 10/04/2018 1:00 PM Dry Black Eschar % 76-100% 10/04/2018 1:00 PM Moist Black Eschar % None 10/04/2018 1:00 PM Epithelialization % None 10/04/2018 1:00 PM Granulation % None 10/04/2018 1:00 PM Exposed Structure None 10/04/2018 1:00 PM Wound Bed Characteristics Black 10/04/2018 1:00 PM Edna-wound Assessment Dry;Dark edges 10/04/2018 1:00 PM Treatments Not Applicable 10/04/2018 1:00 PM Hemostasis Not applicable 10/04/2018 1:00 PM Cleansed Sterile saline 09/20/2018 2:00 PM Primary Dressing Betadine;Impregnated gauze 09/20/2018 2:00 PM Secondary Dressing Gauze roll 10/04/2018 4:04 PM Compression Dressing Not Applicable 09/20/2018 2:00 PM The patient is alert and oriented x3, in acute distress. He is pleasant and conversive today. Neurovascular status is unchanged to the bilateral lower extremities. Zone of demarcation is much more distinct now with the necrosis being at the midfoot level at the level of the proximal metatarsal or Lisfranc level at the tarsometatarsal joint. There is dry gangrene at this location and more distal to this with mummification of all digits 1 through 5 at the left forefoot and at the metatarsal distal level. The rearfoot appears to be intact with good viable skin. There is a dusky area of erythema of 1 cm margin at the zone of transition. No other fluctuance or crepitus or abscess. There is some s kin slough going on with underlying intact epithelium. Assessment and Plan: SNOMED CT(R) 1. Gangrene (HCC) GANGRENOUS DISORDER 2. PVD (peripheral vascular disease) (HCC) PERIPHERAL VASCULAR DISEASE 3. Left foot pain PAIN IN LEFT FOOT 4. Critical lower limb ischemia CRITICAL LOWER LIMB ISCHEMIA 5. Ulcer of toe of left foot, with necrosis of bone (HCC) ULCER OF TOE All treatments were discussed in detail with the patient and the patient's family today. The zone of demarcation at the necrosis of the left forefoot is becoming much more distinct at this point. He is becoming much closer to a definitive treatment protocol at this point. We offered continued observation with the potential for further granulation at the midfoot to allow for a more distal level ofamputation; however, this might take at least 3-6 months and is not without complication of possible infection causing risk of limb loss or life. At this point, the patient has elected for more definitive treatment, which would be admission to the hospital with midfoot incision and drainage with amputation and either primary or delayed revision with closure at the Lisfranc level, or even a Chopart level amputation, depending on the viable skin margins. We will admit the patient to [facility] today, and he will receive IV antibiotic therapy. We will maintain medical and cardiac clearance as appropriate and have the patient have IV antibiotic therapy to optimize the soft tissue windows at least 48 hours prior to the surgical endeavor, which might take place on October 08.Consider I and D with delayed primary closure later next week if clinical margin is not free of infection with IV antibiotic therapy for 2 days. The indications, risks/benefits, alternative treatments, potential complications, and postoperative course were all discussed in detail with the patient. Will likely require SNF placement after surgery. Patient will be followed postoperatively. All the patient's questions were answered to their satisfaction. No guarantees as to outcome were offered or implied. Patient will be followed during hospital admission. Flynn Mann DPM, FACFAS Electronically signed by the above physician 10/04/18 * Flynn Mann DPM - 10/04/2018 4:50 PM EST Procedures in this encounter* Stan Canseco MD - 10/12/2018 9:44 AM EST [facility] DAILY PROGRESS NOTE Assessment and Plan 78 y.o. male patient of Flash Lovelace MD with history of PAD, CAD and HTN that presented to [facility] with need for left foot partial amputation. 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 Sarabia Resume DAPT 10/11 if HGB stable Upper GI bleeding Plavix, ASA and Lovenox stopped GI has seen and EGD 10/10 without acute findings Protonix started Transfuse for Hgb less than 8 (currently 8.3 10/10 and repeat pending) CAD S/p 3 vessel bipass in 2017 Continue plavix, Statin and BB initially ASA on hold for surgery, and would like to resume when ok with Dr. Mann DAPT held 10/09 for GI bleeding but likely resume 10/11 HTN Continue BB Insomnia Holding home Ambien Can start trazodone if needed Quality Measures DVT Prophylaxis: lovenox Qureshi Catheter: none Disposition Discharge Location: [facility] Estimated Discharge Date: Medically stable to discharge Outpatient Testing: none Subjective Resting comfortably. Had BM. Feels his Neurontin is a little too much. Having some stuffy nose Review of Systems The following system(s) were reviewed: All other systems reviewed and negative, other than HPI. Objective BP (!) 158/68 (BP Location: Left arm, Patient Position: Lying) Pulse 82 Temp 98 F (36.7 C) (Oral) Resp 14 Ht 6' 2 Wt 98.9 kg (218 lb) SpO2 96% BMI 27.99 kg/m Physical Examination General Appearance: alert, cooperative, in no acute distress. HEENT: Head- normocephalic; Eyes- PERRLA, EOMI; Ears- external auditory canals clear, hearing intact; Nose- no nasal discharge; Throat- oropharynx normal Cardiovascular: regular rate and rhythm; normal S1, S2; no murmurs, rubs, clicks or gallops; no peripheral edema. Respiratory: lungs clear to auscultation; without wheezes, rales or rhonchi Abdomen: soft, non-tender, non-distended; positive bowel sounds Neurological: alert, oriented, normal speech; no focal findings or movement disorder noted Musculoskeletal: no significant deformity or tenderness to palpation Skin: normal coloration, texture and turgor; no lesions or eruptions Results/Medications Reviewed 10/12/18 9:44 AM Laboratory, Microbiology, Pathology, Radiology, Cardiology, Medications and Transcriptions * Edwina Browne, Sandie,PharmD - 10/12/2018 9:26 AM EST PHARMACOTHERAPY NOTE: Vancomycin Follow-up Assessment / Plan: 1. Patient initiated on vancomycin for gangrene now s/p midfoot amputation and DEREK . 2. Vancomycin trough goal is 15-20 mcg/mL. 3. Based on drug level of 18.4 mcg/mL, will schedule vancomycin 1,750 mg Q18H (17 mg/kg). Mr. Powell's renal function has improved to the point that I feel comfortable scheduling his vancomycin doses. I believe that a Q18H interval should get our vancomycin trough between 10-20 mcg/mL which I feel isappropriate now that the patient is s/p amputation. 4. Will monitor serum creatinine levels daily. 5. Pharmacy will continue to follow, order levels, and make adjustments/recommendations as needed. Subjective/Objective: Labs include: WBC (K/mcL) Date Value 10/11/2018 4.58 BUN (mg/dL) Date Value 10/09/2018 9 Creatinine (mg/dL) Date Value 10/12/2018 0.79 (L) Micro: none Therapeutic Drug Monitoring: Last vancomycin dose administered 10/11 @ 1428 Vancomyicin drug level 10/12 @ 0500 : 18.4 mcg/mL 14.5-hour post-dose level Pharmacist: Edwina Browne RPh,PharmD, [facility] Contact Number: Vocera OR pharmacist * Monica Moore PT - 10/12/2018 8:49 AM EST Physical Therapy PHYSICAL THERAPY TREATMENT NOTE Skilled Therapy Needs After Discharge Are Skilled Therapy Services Needed After Discharge: Yes Intensity of Skilled Therapy: Up to 5 days per week Anticipated Duration of Skilled Therapy: Duration 10 - 30 days DME Recommendation: None Rehab Potential: Good Outcomes Measures Prior Function - Basic Mobility Raw Score: 24 Points Prior Function - Basic Mobility % Impaired: 0% functionally impaired AM-PAC - Basic Mobility Raw Score: 17 Points AM-PAC - Basic Mobility % Impaired: 43.83% functionally impaired Therapy Precautions Orthotic Devices: No Weight Bearing Status: X RLE: Wt bearing as tolerated LLE: Non Wt bearing General Rehab Precautions: Fall risk Bed Mobility Sit to Supine: Independent Transfers Sit to Stand: Contact guard Careers Counsellor: Wheeled walker Skilled Intervention: cont. to reinforce safe hand placement & maintain awareness of lines during this activity Gait/Locomotion Gait Assistance: Contact guard Assistive Device: Wheeled walker Distance: 6 Feet Pattern: R decreased step length Weight Bearing Status: Able to maintain, Non-weight bearing Skilled Intervention: cued for slower pamela for safety ena. during turns & to maintain LLE NWB Later ambulated an additional 20 feet from bathroom with CGA Exercise Straight Leg Raise: x 10 Hip Abduction: x 10 Short Arc Quad: x 10 Skilled Intervention: cued for technique to maintain knee extension during ex to maximize quad recruitment Home Living Type of Home: House Home Layout: One level Bathroom Shower/Tub: Tub/shower unit Bathroom Toilet: Standard Bathroom Equipment: Shower chair Home Equipment: Walker, Wheeled Walker, Wheelchair-electric Prior Level of Function Level of [place]: Independent with ADLs and functional transfers, Independent with homemaking with ambulation Lives With: Alone Receives Help From: Family For complete objective data, detailed plan of care and patient education refer to: PT EVALUATION flow sheet, PT TREATMENT flow sheet, patient Plan of Care, Plan of Care progress note, and Patient Education. This note stands as the current Discharge Summary upon patient discharge from the hospital or completion of Physical Therapy Plan of Care. * Nabor Hamilton DPM - 10/12/2018 6:33 AM EST Podiatry Progress Note IMPRESSION & PLAN: Tristin Powell is a 78 y.o. male with PMHx PVD (s/p bypass), HTN, HLD, Triple bypass and prior stent placement in heart, Prostate cancer presents with Left forefoot gangrene with local infection, now s/p left midfoot amputation and DEREK (10/08/18). -Patient evaluated at bedside. -Afebrile, labs reviewed. -Empiric IV Vancomycin. -Radiographs reviewed. -[facility] c'sed for medical management. -WBAT to LLE -DVT ppx lovenox. -Patient discussed with Dr. Mann who agrees with assessment and plan. Patient had bypass surgery ofLLE at [place] in August. Pt now s/p left midfoot amputation and DEREK. Awaiting SNF placement. Awaiting consulting services clearance prior to DC. Further plan per Dr. Mann SUBJECTIVE Pt seen and evaluated at bedside. Resting comfortably, minimal pain. Denies any overnight events orany n/v/f/c/sob or chest pain. No new pedal complaints. PHYSICAL EXAM Vital Signs BP (!) 162/68 (BP Location: Left arm, Patient Position: Lying) Pulse 75 Temp 98.5 F (36.9 C) (Oral) Resp 14 Ht 6' 2 Wt 98.9 kg (218 lb) SpO2 94% BMI 27.99 kg/m Wt Readings from Last 25 Encounters: 10/08/18 98.9 kg (218 lb) 09/20/18 107 kg (236 lb) 09/04/18 111.6 kg (246 lb) Ins & Outs Intake/Output Summary (Last 24 hours) at 10/12/2018 0633 Last data filed at 10/12/2018 0456 Gross per 24 hour Intake 2299.95 ml Output 1700 ml Net 599.95 ml General: No acute distress, resting comfortably in bed. LE Physical Exam: Posterior splint CDI to LLE, see below for previous VASCULAR: DP/PT pulses faintly palpable bilaterally. CFT immediate to RLE, absent 2/2 to gangrene LLE NEUROLOGICAL: Light touch sensation decreased Distal to Midfoot. DERMATOLOGICAL: Dry gangrene with mummification of entire forefoot (digits 1-5) extending to the level of the metatarsals. Demarcation appreciated proximal to the gangrene with fibro-granular base. Betadine dressingwas in place, minimal drainage. No malodor appreciated. Mild erythema proximal to area of demarcation. No fluctuance, crepitus, proximal streaking. No open wounds, no erythema, no ecchymosis, no rashes to right lower extremity. MUSCULOSKELETAL: Muscle strength differed. Dry gangrene of left foot. LABS Lab Results Component Value Date WBC 4.58 10/11/2018 HGB 8.7 (L) 10/11/2018 HCT 26.6 (L) 10/11/2018 MCV 95.3 10/11/2018 PLT 160 10/11/2018 Lab Results Component Value Date GLUCOSE 111 (H) 10/09/2018 CALCIUM 8.6 10/09/2018 NA 141 10/09/2018 K 4.2 10/09/2018 CL 106 10/09/2018 BUN 9 10/09/2018 CREATININE 0.79 (L) 10/12/2018 XR Foot Left 2 Views Final Result Postsurgical changes status post amputation of the left foot at the level of the midfoot Chopart articulations. Surgical drain present. VK/mll Workstation ID: [id number] XR Chest 1 View Final Result 1. Increased bibasilar pulmonary opacities may represent atelectasis, pneumonia, and/or aspiration.Recommend radiographic follow-up to complete resolution. 2. Findings suggestive of underlying COPD. TRP/jw Workstation ID: [id number] Echocardiogram complete Final Result XR Foot Left 3+ Views (Standard) Final Result 1. Limited evaluation due to overlying dressing material and diffuse osteopenia. No radiographic evidence of soft tissue gas. No radiographic evidence of new area of osseous destruction. 2. No acute osseous abnormalities identified. RECOMMENDATIONS: If further evaluation is clinically warranted, consider MRI or CT. TRP/dbg Workstation ID: [id number] * Jeanette Ramirez RN - 10/11/2018 4:13 PM EST VM from Jose Manuel @ the [facility] requesting final Iv atb orders. Return call to Jose Manuel noting one more random Vanco level in AM, then final dose to be determined. Jose Manuel asks we communicate with Andrew tomorrow in Jose Manuel's absence. * Maggy Valenzuela OTA - 10/11/2018 4:01 PM EST Occupational Therapy OCCUPATIONAL THERAPY PROGRESS REPORT Skilled Therapy Needs After Discharge Anticipate Resolution of Current Assessment Limitations Including: Pain Are Skilled Therapy Services Needed After Discharge: Yes Intensity of Skilled Therapy: Up to 5 days per week Anticipated Duration of Skilled Therapy: Duration 10 - 30 days DME Recommendation: Elevated toilet seat DME Rationale: Patient's condition prevents him/her from accomplishing ADL without recommended equipment, Patient's condition creates an increased risk of safety hazard without recommended equipment Rehab Potential: Good Outcomes Measures Prior Function Daily Activity: Raw Score: 24 Prior Function Daily Activity % Impaired: 0% functionally impaired AM-PAC Daily Activity: Raw Score: 20 AM-PAC Daily Activity % Impaired: 38.32% functionally impaired Activity Tolerance Therapy Precautions Orthotic Devices: No Weight Bearing Status: X RLE: Non Wt bearing General Rehab Precautions: Fall risk Cognition Overall Cognitive Status: Within Functional Limits Arousal/Alertness: Appropriate responses to stimuli Orientation Level: Oriented X4 Executive functioning: WFL Safety Judgment: Good awareness of safety precautions Problem Solving: Able to problem solve independently Attention: Attends to quiet environment Hearing Status: WFL Social Interaction: Cooperative, Appropriate(multi step command follow ) ADL/IADL Grooming : Stand by assistance(standing) LE Dressing: Modified independence Toileting : Independent Skilled Intervention: Educated to use jonathan technique (don impaired side first) during lower body dressing. Cued to correct standing position during groom task, as pt was reaching too far outside baseof support; cued to stand inside w/w close to task area. Educated w/w carry devices. Bed Mobility Supine to Sit: Modified independence Sit to Supine: Modified [place] Functional Transfers Sit to Stand: Contact guard Toilet Transfers: Contact Guard, Grab bars Skilled Intervention: Cued to maintain contact with w/w throughout standing turns and to safely locate toilet LE first then reach for grab bar. Good demo NWB LLE during functional ambulation Exercise Interventions Home Living Type of Home: House Home Layout: One level Bathroom Shower/Tub: Tub/shower unit Bathroom Toilet: Standard Bathroom Equipment: Shower chair Home Equipment: Walker, Wheeled Walker, Wheelchair-electric Prior Level of Function Level of [place]: Independent with ADLs and functional transfers, Independent with homemaking with ambulation Lives With: Alone Receives Help From: Family For complete objective data, detailed plan of care and patient education refer to: OT EVALUATION flow sheet, OT TREATMENT flow sheet, patient Plan of Care, Plan of Care progress note, and Patient Education. This note stands as the current Discharge Summary upon patient discharge from the hospital or completion of Occupational Therapy Plan of Care. * Edwina Browne RPh,PharmD - 10/11/2018 3:04 PM EST PHARMACOTHERAPY NOTE: Antimicrobial Therapy Follow-up Assessment / Plan: 1. Patient initiated on vancomycin for gangrene now s/p midfoot amputation and DEREK . 2. Vancomycin trough goal is 15-20 mcg/mL. Probably could consider a lower trough goal at this point, and even potentially discuss if antibiotics are still clinically necessary. 3. Based on a 36 hour random vancomycin concentration of 14.3 mcg/mL , will give a one time dose ofvancomycin 1,750 mg (17 mg/kg). Will continue pulse dosing at least for one more day and check a vanc random with AM labs to determine course of action. 4. Will monitor serum creatinine levels and urine output (if available) daily. 5. Pharmacy will continue to follow, order levels, and make adjustments/recommendations as needed. Subjective/Objective: Labs include: WBC (K/mcL) Date Value 10/11/2018 4.58 BUN (mg/dL) Date Value 10/09/2018 9 Creatinine (mg/dL) Date Value 10/11/2018 0.95 Therapeutic Drug Monitoring: Last vancomycin dose administered 10/09 @ 2328 Vancomyicin drug level 10/11 @ 1059 : 14.3 mcg/mL 36-hour post-dose level Pharmacist: Edwina Browne RPh,PharmD, [facility] Contact Number: Vocera OR pharmacist * Jeanette Ramirez RN - 10/11/2018 1:03 PM EST Call from daughter Monica Zaidi requesting update on pre-cert and possible transport needs. Advised Monica we do not yet have pre-cert and we plan to notify her of the same once we obtain it. She requests to transport her father to [facility]. She relates they have been transporting him CMO & PRESIDENT and are aware of his limited gait and transferring capabilities. Monica plans to arrive here 10/12 after an AM meeting. Plan to contact Monica once pre-cert is obtained # [phone]. * Alice Delvalle, CMO & PRESIDENT - 10/11/2018 11:33 AM EST Physical Therapy PHYSICAL THERAPY TREATMENT NOTE Skilled Therapy Needs After Discharge Are Skilled Therapy Services Needed After Discharge: Yes Intensity of Skilled Therapy: Up to 5 days per week Anticipated Duration of Skilled Therapy: Duration 10 - 30 days DME Recommendation: None Rehab Potential: Good Outcomes Measures Prior Function - Basic Mobility Raw Score: 24 Points Prior Function - Basic Mobility % Impaired: 0% functionally impaired AM-PAC - Basic Mobility Raw Score: 17 Points AM-PAC - Basic Mobility % Impaired: 43.83% functionally impaired Therapy Precautions Orthotic Devices: No Weight Bearing Status: X RLE: Non Wt bearing General Rehab Precautions: Fall risk Balance Sitting Balance - Static: Sits without support for more than 30 seconds Sitting Balance - Dynamic: Moves / returns trunkal midpoint more than 2 inches in all planes Standing Balance - Static: Supports self independantly with both upper extremities Standing Balance - Dynamic: Moves / returns trunkal midpoint more than 2 inches in all planes Skilled Intervention: cued pt on UE sequencing to stand Bed Mobility Supine to Sit: Stand by assistance Sit to Supine: (not observed - pt to chair) Skilled Intervention: min cueing needed for bed mobility as pt demonstrates good use of BUEs Transfers Sit to Stand: Contact guard Bed to Chair: (x 2 for line management) Careers Counsellor: Wheeled walker Skilled Intervention: cued to achieve balance before ambulation; pt slightly impulsive Gait/Locomotion Gait Assistance: Contact guard Assistive Device: Wheeled walker Distance: 10 Feet(to bathroom door and then to chair) Weight Bearing Status: Able to maintain Skilled Intervention: pt demonstrates hopping pattern; cued to remaining NWBing on RLE w/pt able to maintain; pt demonstrates good strength; slightly impulsive w/ plopping into chair after ambulation; Home Living Type of Home: House Home Layout: One level Bathroom Shower/Tub: Tub/shower unit Bathroom Toilet: Standard Bathroom Equipment: Shower chair Home Equipment: Walker, Wheeled Walker, Wheelchair-electric Prior Level of Function Level of [place]: Independent with ADLs and functional transfers, Independent with homemaking with ambulation Lives With: Alone Receives Help From: Family For complete objective data, detailed plan of care and patient education refer to: PT EVALUATION flow sheet, PT TREATMENT flow sheet, patient Plan of Care, Plan of Care progress note, and Patient Education. This note stands as the current Discharge Summary upon patient discharge from the hospital or completion of Physical Therapy Plan of Care. * Stan Canseco MD - 10/11/2018 10:43 AM EST [facility] DAILY PROGRESS NOTE Assessment and Plan 78 y.o. male patient of lFash Lovelace MD with history of PAD, CAD and HTN that presented to [facility] with need for left foot partial amputation. 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 Sarabia Resume DAPT 10/11 if HGB stable Upper GI bleeding Plavix, ASA and Lovenox stopped GI has seen and EGD 10/10 without acute findings Protonix started Transfuse for Hgb less than 8 (currently 8.3 10/10 and repeat pending) CAD S/p 3 vessel bipass in 2017 Continue plavix, Statin and BB initially ASA on hold for surgery, and would like to resume when ok with Dr. Mann DAPT held 10/09 for GI bleeding but likely resume 10/11 HTN Continue BB Insomnia Holding home Ambien Can start trazodone if needed Quality Measures DVT Prophylaxis: lovenox Qureshi Catheter: none Disposition Discharge Location: [facility] Estimated Discharge Date: Pending Hgb stability Outpatient Testing: none Subjective Resting comfortably. No BM Review of Systems The following system(s) were reviewed: All other systems reviewed and negative, other than HPI. Objective BP (!) 163/78 (BP Location: Left arm, Patient Position: Lying) Pulse 90 Temp 98.8 F (37.1 C) (Oral) Resp 18 Ht 6' 2 Wt 98.9 kg (218 lb) SpO2 94% BMI 27.99 kg/m Physical Examination General Appearance: alert, cooperative, in no acute distress. HEENT: Head- normocephalic; Eyes- PERRLA, EOMI; Ears- external auditory canals clear, hearing intact; Nose- no nasal discharge; Throat- oropharynx normal Cardiovascular: regular rate and rhythm; normal S1, S2; no murmurs, rubs, clicks or gallops; no peripheral edema. Respiratory: lungs clear to auscultation; without wheezes, rales or rhonchi Abdomen: soft, non-tender, non-distended; positive bowel sounds Neurological: alert, oriented, normal speech; no focal findings or movement disorder noted Musculoskeletal: no significant deformity or tenderness to palpation Skin: normal coloration, texture and turgor; no lesions or eruptions Results/Medications Reviewed 10/11/18 10:43 AM Laboratory, Microbiology, Pathology, Radiology, Cardiology, Medications and Transcriptions * Nabor Hamilton DPM - 10/11/2018 6:59 AM EST Podiatry Progress Note IMPRESSION & PLAN: Tristin Powell is a 78 y.o. male with PMHx PVD (s/p bypass), HTN, HLD, Triple bypass and prior stent placement in heart, Prostate cancer presents with Left forefoot gangrene with local infection, now s/p left midfoot amputation and DEREK (10/08/18). -Patient evaluated at bedside. -Afebrile, labs reviewed. -Empiric IV Vancomycin. -Radiographs reviewed. -[facility] c'sed for medical management. -WBAT to LLE -DVT ppx lovenox. -Patient discussed with Dr. Mann who agrees with assessment and plan. [facility] Pt now s/p left midfoot amputation and DEREK. Awaiting SNF placement. Awaiting consulting services clearance prior to DC. Further plan per Dr. Mann SUBJECTIVE Pt seen and evaluated at bedside. Resting comfortably, minimal pain. Denies any overnight events orany n/v/f/c/sob or chest pain. No new pedal complaints. PHYSICAL EXAM Vital Signs BP 147/72 (BP Location: Left arm, Patient Position: Lying) Pulse 76 Temp 98.8 F (37.1 C) (Oral) Resp 15 Ht 6' 2 Wt 98.9 kg (218 lb) SpO2 92% BMI 27.99 kg/m Wt Readings from Last 25 Encounters: 10/08/18 98.9 kg (218 lb) 09/20/18 107 kg (236 lb) 09/04/18 111.6 kg (246 lb) Ins & Outs Intake/Output Summary (Last 24 hours) at 10/11/2018 0700 Last data filed at 10/11/2018 0509 Gross per 24 hour Intake 912.29 ml Output 700 ml Net 212.29 ml General: No acute distress, resting comfortably in bed. LE Physical Exam: Posterior splint CDI to LLE, see below for previous VASCULAR: DP/PT pulses faintly palpable bilaterally. CFT immediate to RLE, absent 2/2 to gangrene LLE NEUROLOGICAL: Light touch sensation decreased Distal to Midfoot. DERMATOLOGICAL: Dry gangrene with mummification of entire forefoot (digits 1-5) extending to the level of the metatarsals. Demarcation appreciated proximal to the gangrene with fibro-granular base. Betadine dressingwas in place, minimal drainage. No malodor appreciated. Mild erythema proximal to area of demarcation. No fluctuance, crepitus, proximal streaking. No open wounds, no erythema, no ecchymosis, no rashes to right lower extremity. MUSCULOSKELETAL: Muscle strength differed. Dry gangrene of left foot. LABS Lab Results Component Value Date WBC 5.18 10/09/2018 HGB 8.2 (L) 10/10/2018 HCT 25.1 (L) 10/10/2018 MCV 97.2 10/09/2018 PLT 187 10/09/2018 Lab Results Component Value Date GLUCOSE 111 (H) 10/09/2018 CALCIUM 8.6 10/09/2018 NA 141 10/09/2018 K 4.2 10/09/2018 CL 106 10/09/2018 BUN 9 10/09/2018 CREATININE 0.95 10/11/2018 XR Chest 1 View Final Result 1. Increased bibasilar pulmonary opacities may represent atelectasis, pneumonia, and/or aspiration.Recommend radiographic follow-up to complete resolution. 2. Findings suggestive of underlying COPD. TRP/jw Workstation ID: [id number] Echocardiogram complete Final Result XR Foot Left 2 Views Preliminary Result Postsurgical changes status post amputation of the left foot at the level of the midfoot Chopart articulations. Surgical drain present. VK/mll Workstation ID: [id number] XR Foot Left 3+ Views (Standard) Final Result 1. Limited evaluation due to overlying dressing material and diffuse osteopenia. No radiographic evidence of soft tissue gas. No radiographic evidence of new area of osseous destruction. 2. No acute osseous abnormalities identified. RECOMMENDATIONS: If further evaluation is clinically warranted, consider MRI or CT. TRP/dbg Workstation ID: [id number] * Rubi Dominguez LSW - 10/10/2018 4:16 PM EST Reason For Consult: SNF placement Situation/Background: 78 y.o. male patient of Flash Lovelace MD with history of PAD, CAD and HTN that presented to [facility] with need for left foot partial amputation. Action: AUDREY met with pt who requests referral to [facility]. SW educated pt on referral/PC process. Pt states understanding. Referral faxed. Recommendation: awaiting acceptance. * Nabor Hamilton DPM - 10/10/2018 10:33 AM EST Podiatry Progress Note IMPRESSION & PLAN: Tristin Powell is a 78 y.o. male with PMHx PVD (s/p bypass), HTN, HLD, Triple bypass and prior stent placement in heart, Prostate cancer presents with Left forefoot gangrene with local infection, now s/p left midfoot amputation and DEREK (10/08/18). -Patient evaluated at bedside. -Afebrile, labs reviewed. -Empiric IV Vancomycin. -Radiographs reviewed. -[facility] c'sed for medical management. -WBAT to LLE -DVT ppx lovenox. -Patient discussed with Dr. Mann who agrees with assessment and plan. [facility] [place] [facility] Pt now s/p left midfoot amputation and DEREK. Patient to have EGD with GI. Awaiting SNF placement. Awaiting consulting services clearance prior to DC. Further plan per Dr. Mann SUBJECTIVE Pt seen and evaluated at bedside. Resting comfortably, minimal pain. Denies any overnight events orany n/v/f/c/sob or chest pain. No new pedal complaints. PHYSICAL EXAM Vital Signs BP 126/62 (BP Location: Left arm, Patient Position: Lying) Pulse 76 Temp 97.6 F (36.4 C) (Oral) Resp 14 Ht 6' 2 Wt 98.9 kg (218 lb) SpO2 96% BMI 27.99 kg/m Wt Readings from Last 25 Encounters: 10/08/18 98.9 kg (218 lb) 09/20/18 107 kg (236 lb) 09/04/18 111.6 kg (246 lb) Ins & Outs Intake/Output Summary (Last 24 hours) at 10/10/2018 1033 Last data filed at 10/10/2018 0800 Gross per 24 hour Intake 2212.03 ml Output 900 ml Net 1312.03 ml General: No acute distress, resting comfortably in bed. LE Physical Exam: Posterior splint CDI to LLE, see below for previous VASCULAR: DP/PT pulses faintly palpable bilaterally. CFT immediate to RLE, absent 2/2 to gangrene LLE NEUROLOGICAL: Light touch sensation decreased Distal to Midfoot. DERMATOLOGICAL: Dry gangrene with mummification of entire forefoot (digits 1-5) extending to the level of the metatarsals. Demarcation appreciated proximal to the gangrene with fibro-granular base. Betadine dressingwas in place, minimal drainage. No malodor appreciated. Mild erythema proximal to area of demarcation. No fluctuance, crepitus, proximal streaking. No open wounds, no erythema, no ecchymosis, no rashes to right lower extremity. MUSCULOSKELETAL: Muscle strength differed. Dry gangrene of left foot. LABS Lab Results Component Value Date WBC 5.18 10/09/2018 HGB 8.3 (L) 10/10/2018 HCT 24.0 (L) 10/10/2018 MCV 97.2 10/09/2018 PLT 187 10/09/2018 Lab Results Component Value Date GLUCOSE 111 (H) 10/09/2018 CALCIUM 8.6 10/09/2018 NA 141 10/09/2018 K 4.2 10/09/2018 CL 106 10/09/2018 BUN 9 10/09/2018 CREATININE 1.06 10/10/2018 XR Chest 1 View Final Result 1. Increased bibasilar pulmonary opacities may represent atelectasis, pneumonia, and/or aspiration.Recommend radiographic follow-up to complete resolution. 2. Findings suggestive of underlying COPD. TRP/jw Workstation ID: [id number] Echocardiogram complete Final Result XR Foot Left 2 Views Preliminary Result Postsurgical changes status post amputation of the left foot at the level of the midfoot Chopart articulations. Surgical drain present. VK/mll Workstation ID: [id number] XR Foot Left 3+ Views (Standard) Final Result 1. Limited evaluation due to overlying dressing material and diffuse osteopenia. No radiographic evidence of soft tissue gas. No radiographic evidence of new area of osseous destruction. 2. No acute osseous abnormalities identified. RECOMMENDATIONS: If further evaluation is clinically warranted, consider MRI or CT. TRP/dbg Workstation ID: [id number] * Stan Canseco MD - 10/10/2018 9:37 AM EST [facility] DAILY PROGRESS NOTE Assessment and Plan 78 y.o. male patient of Flash Lovelace MD with history of PAD, CAD and HTN that presented to [facility] with need for left foot partial amputation. 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 Sarabia Resume DAPT when ok from GI Upper GI bleeding Plavix, ASA and Lovenox stopped GI has seen and plan for EGD 10/10 Protonix started Transfuse for Hgb less than 8 (currently 8.3) CAD S/p 3 vessel bipass in 2017 Continue plavix, Statin and BB initially ASA on hold for surgery, and would like to resume when ok with Dr. Mann DAPT held 10/09 for GI bleeding HTN Continue BB Insomnia Holding home Ambien Can start trazodone if needed Quality Measures DVT Prophylaxis: per primary Qureshi Catheter: none Disposition Discharge Location: [facility] Estimated Discharge Date: Pending Hgb stability Outpatient Testing: none Subjective Resting comfortably. No new complaints. Worked well with PT Review of Systems The following system(s) were reviewed: All other systems reviewed and negative, other than HPI. Objective BP 126/62 (BP Location: Left arm, Patient Position: Lying) Pulse 76 Temp 97.6 F (36.4 C) (Oral) Resp 14 Ht 6' 2 Wt 98.9 kg (218 lb) SpO2 96% BMI 27.99 kg/m Physical Examination General Appearance: alert, cooperative, in no acute distress. HEENT: Head- normocephalic; Eyes- PERRLA, EOMI; Ears- external auditory canals clear, hearing intact; Nose- no nasal discharge; Throat- oropharynx normal Cardiovascular: regular rate and rhythm; normal S1, S2; no murmurs, rubs, clicks or gallops; no peripheral edema. Respiratory: lungs clear to auscultation; without wheezes, rales or rhonchi Abdomen: soft, non-tender, non-distended; positive bowel sounds Neurological: alert, oriented, normal speech; no focal findings or movement disorder noted Musculoskeletal: no significant deformity or tenderness to palpation Skin: normal coloration, texture and turgor; no lesions or eruptions Results/Medications Reviewed 10/10/18 9:37 AM Laboratory, Microbiology, Pathology, Radiology, Cardiology, Medications and Transcriptions * Jeanette Ramirez RN - 10/10/2018 8:26 AM EST COMPLEX DISCHARGE Date: 10/10/2018 Time: 8:26 AM Patient Name: Tristin Powell Date of : 1940 Sex: Male Patient Information Primary Caregiver: Self Accompanied by/Relationship: none Confucianist/Cultural Factors: none Legal Documentation Advance Directives: (none) Resuscitation Status: Resuscitate Resources Financial Resources: Other (Comment)([employer] Medicare insurance confirmed) Community Resources: Other (Comment)(PCP Dr. Lovelace [phone]) Discharge Plan Shared UM/CC and RN Source of Information: Patient Contact Phone Number: emergency contact Amina Zaidi p:[phone] Living Arrangements: Children Support Systems: Children Functional Status: Independent Type of Residence: Private residence Prior to Admission Home Care Services: Yes Type of Current Home Care Services: Home health care Current Agency Name: [facility] Current Home Equipment: Walker, Wheeled walker, Toilet seat hog operator, Tub/Shower chair Insurance Coverage for Prescriptions: Yes Anticipated Discharge Plan Anticipated HME: None Anticipated Home Care Needs: Home health care Anticipated Facility Type: Home care Potential for Readmission Potential for Readmission: No Discharge Readiness Expected Discharge Date: 10/11/18 Barriers to Discharge: Other (Comment)(EGD 10/10) * Gaye Carver RD - 10/09/2018 12:44 PM EST Nutrition Care Initial Assessment Reason for visit: Dietitian Screen Nutrition Diagnosis: Increased nutrient needs related to protein as evidenced by L mid-foot amputation. Nutrition Intervention: Continue current diet as tolerated Initiate ONS w/ meals Nutrition Prescription: Diet: continue regular diet Oral nutrition supplement: recommend beneprotein w/ meals Tube Feeding: N/A Nutrition Goals: PO intake > 65% most meals Start Date:10/09/2018 Expected End Date:10/15/2018 Nutrition Education: RD will monitor diet education needs Assessment: Pertinent clinical information: L foot gangrene, PVD, POD #1 s/p L mid-foot amputation per podiatry Past Medical History: Diagnosis Date Arthritis Avascular necrosis of bone of hip (HCC) Claudication (HCC) Herpes zoster Hyperlipidemia Hypertension Prostate cancer (HCC) Vascular disease Height: 6' 2 Current weight: 98.9 kg (218 lb) BMI Body mass index is 27.99 kg/m . Weight hx: see below Wt Readings from Last 5 Encounters: 10/08/18 98.9 kg (218 lb) 09/20/18 107 kg (236 lb) 09/04/18 111.6 kg (246 lb) Current diet order: regular Recent intake: 75-100% Current intake likely meets estimated needs. Patient/family comments: N/A Difficulty Chewing/Swallowing: No Skin Integrity: N/A GI Function: WNL Physical Appearance: appears well nourished Labs: Recent Labs 10/09/18 0416 NA 141 K 4.2 BICARB 23 CL 106 GLUCOSE 111* BUN 9 CREATININE 0.90 0.95 Scheduled Meds: aspirin 81 mg Oral Daily atorvastatin 40 mg Oral Daily clopidogrel 75 mg Oral Daily enoxaparin (LOVENOX) injection 40 mg Subcutaneous Daily gabapentin 400 mg Oral Q8H SADIA ketorolac 15 mg Intravenous Q6H metoprolol tartrate 50 mg Oral BID senna-docusate 1 tablet Oral BID vancomycin 1,500 mg Intravenous Q12H Continuous Infusions: Estimated Energy Needs Total Energy Estimated Needs: 0682-3074 kcal Method for Estimating Needs: 25-30 kcal/kg Total Protein Estimated Needs: 95-144 gm Method for Estimating Needs: 1.0-1.2 gm/kg Assessed by: Gaye Carver RD,LD Phone #: [phone] Pager #: [phone] * Stan Canseco MD - 10/09/2018 11:01 AM EST [facility] DAILY PROGRESS NOTE Assessment and Plan 78 y.o. male patient of Flash Lovelace MD with history of PAD, CAD and HTN that presented to [facility] with need for left foot partial amputation. 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 Sarabia Continue plavix and statin ASA on hold for surgery CAD S/p 3 vessel bipass in 2017 Continue plavix, Statin and BB ASA on hold for surgery, and would like to resume when ok with Dr. Mann HTN Continue BB Insomnia Holding home Ambien Can start trazodone if needed Quality Measures DVT Prophylaxis: per primary Qureshi Catheter: none Disposition Discharge Location: [facility] Estimated Discharge Date: Medically stable to al home Outpatient Testing: none Subjective Resting comfortably. No new complaints. Review of Systems The following system(s) were reviewed: All other systems reviewed and negative, other than HPI. Objective BP (!) 99/59 (BP Location: Left arm, Patient Position: Lying) Pulse 78 Temp 98.1 F (36.7 C) (Oral) Resp 15 Ht 6' 2 Wt 98.9 kg (218 lb) SpO2 93% BMI 27.99 kg/m Physical Examination General Appearance: alert, cooperative, in no acute distress. HEENT: Head- normocephalic; Eyes- PERRLA, EOMI; Ears- external auditory canals clear, hearing intact; Nose- no nasal discharge; Throat- oropharynx normal Cardiovascular: regular rate and rhythm; normal S1, S2; no murmurs, rubs, clicks or gallops; no peripheral edema. Respiratory: lungs clear to auscultation; without wheezes, rales or rhonchi Abdomen: soft, non-tender, non-distended; positive bowel sounds Neurological: alert, oriented, normal speech; no focal findings or movement disorder noted Musculoskeletal: no significant deformity or tenderness to palpation Skin: normal coloration, texture and turgor; no lesions or eruptions Results/Medications Reviewed 10/09/18 11:01 AM Laboratory, Microbiology, Pathology, Radiology, Cardiology, Medications and Transcriptions * Ofe Wood DPM - 10/09/2018 4:29 AM EST Podiatry Progress Note IMPRESSION & PLAN: Tristin Powell is a 78 y.o. male with PMHx PVD (s/p bypass), HTN, HLD, Triple bypass and prior stent placement in heart, Prostate cancer presents with Left forefoot gangrene with local infection, now s/p left midfoot amputation and DEREK (10/08/18). -Patient evaluated at bedside. Posterior splint CDI with drain intact -Afebrile, labs reviewed. -Empiric IV Vancomycin. -Radiographs reviewed. -[facility] c'sed for medical management. -WBAT to LLE -DVT ppx lovenox. -Patient discussed with Dr. Mann who agrees with assessment and plan. [facility] [place] [facility] Pt now s/p left midfoot amputation and DEREK with closed suction drain. Will plan to pull drain today. PT/OT to evaluate, appreciate assistance. May need SNF upon discharge. Further plan per Dr. Mann SUBJECTIVE Pt seen and evaluated at bedside. Resting comfortably, minimal pain. Denies any overnight events orany n/v/f/c/sob or chest pain. No new pedal complaints. PHYSICAL EXAM Vital Signs BP (!) 154/72 Pulse 96 Temp 100 F (37.8 C) (Oral) Resp 16 Ht 6' 2 Wt 98.9 kg (218 lb) SpO2 93% BMI 27.99 kg/m Wt Readings from Last 25 Encounters: 10/08/18 98.9 kg (218 lb) 09/20/18 107 kg (236 lb) 09/04/18 111.6 kg (246 lb) Ins & Outs Intake/Output Summary (Last 24 hours) at 10/09/2018 0429 Last data filed at 10/09/2018 0117 Gross per 24 hour Intake 2540.51 ml Output 950 ml Net 1590.51 ml General: No acute distress, resting comfortably in bed. LE Physical Exam: Posterior splint CDI to LLE, see below for previous VASCULAR: DP/PT pulses faintly palpable bilaterally. CFT immediate to RLE, absent 2/2 to gangrene LLE NEUROLOGICAL: Light touch sensation decreased Distal to Midfoot. DERMATOLOGICAL: Dry gangrene with mummification of entire forefoot (digits 1-5) extending to the level of the metatarsals. Demarcation appreciated proximal to the gangrene with fibro-granular base. Betadine dressingwas in place, minimal drainage. No malodor appreciated. Mild erythema proximal to area of demarcation. No fluctuance, crepitus, proximal streaking. No open wounds, no erythema, no ecchymosis, no rashes to right lower extremity. MUSCULOSKELETAL: Muscle strength differed. Dry gangrene of left foot. LABS Lab Results Component Value Date WBC 3.86 (L) 10/08/2018 HGB 10.4 (L) 10/08/2018 HCT 31.0 (L) 10/08/2018 MCV 99.7 10/08/2018 PLT 202 10/08/2018 Lab Results Component Value Date GLUCOSE 90 10/08/2018 CALCIUM 9.1 10/08/2018 NA 143 10/08/2018 K 3.8 10/08/2018 CL 108 10/08/2018 BUN 6 (L) 10/08/2018 CREATININE 0.70 (L) 10/08/2018 Echocardiogram complete Final Result XR Foot Left 2 Views Preliminary Result Postsurgical changes status post amputation of the left foot at the level of the midfoot Chopart articulations. Surgical drain present. VK/karie Workstation ID: [id number] XR Foot Left 3+ Views (Standard) Final Result 1. Limited evaluation due to overlying dressing material and diffuse osteopenia. No radiographic evidence of soft tissue gas. No radiographic evidence of new area of osseous destruction. 2. No acute osseous abnormalities identified. RECOMMENDATIONS: If further evaluation is clinically warranted, consider MRI or CT. TRP/dbg Workstation ID: [id number] Associated attestation - Marichuy Sutton DPM - 10/09/2018 7:08 AM EST Patient seen bedside this am resting comfortably - AD. Pain controlled better this am - waiting PT eval. Plan for SNF placement -- Final plan per Dr. Mann. * Stan Canseco MD - 10/08/2018 10:45 AM EST [facility] DAILY PROGRESS NOTE Assessment and Plan 78 y.o. male patient of Flash Lovelace MD with history of PAD, CAD and HTN that presented to [facility] with need for left foot partial amputation. 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 Sarabia Continue plavix and statin ASA on hold for surgery CAD S/p 3 vessel bipass in 2017 Continue plavix, Statin and BB ASA on hold for surgery, and would like to resume when ok with Dr. Mann HTN Continue BB Insomnia Holding home Ambien Can start trazodone if needed Quality Measures DVT Prophylaxis: per primary Qureshi Catheter: none Disposition Discharge Location: TBD Estimated Discharge Date: TBD - surgery Monday Outpatient Testing: none Subjective Doing well in PACU. No complaints now that pain is controlled Review of Systems The following system(s) were reviewed: All other systems reviewed and negative, other than HPI. Objective BP (!) 118/58 (BP Location: Left arm, Patient Position: Lying) Pulse 70 Temp 98 F (36.7 C) (Temporal) Resp 13 Ht 6' 2 Wt 98.9 kg (218 lb) SpO2 96% BMI 27.99 kg/m Physical Examination General Appearance: alert, cooperative, in no acute distress. HEENT: Head- normocephalic; Eyes- PERRLA, EOMI; Ears- external auditory canals clear, hearing intact; Nose- no nasal discharge; Throat- oropharynx normal Cardiovascular: regular rate and rhythm; normal S1, S2; no murmurs, rubs, clicks or gallops; no peripheral edema. Respiratory: lungs clear to auscultation; without wheezes, rales or rhonchi Abdomen: soft, non-tender, non-distended; positive bowel sounds Neurological: alert, oriented, normal speech; no focal findings or movement disorder noted Musculoskeletal: no significant deformity or tenderness to palpation Skin: normal coloration, texture and turgor; no lesions or eruptions Results/Medications Reviewed 10/08/18 10:45 AM Laboratory, Microbiology, Pathology, Radiology, Cardiology, Medications and Transcriptions * Ofe Wood DPM - 10/08/2018 4:21 AM EST Podiatry Progress Note IMPRESSION & PLAN: Tristin Powell is a 78 y.o. male with PMHx PVD (s/p bypass), HTN, HLD, Triple bypass and prior stent placement in heart, Prostate cancer presents with Left forefoot gangrene with local infection and plans for midfoot amputation. -Patient evaluated at bedside. Stable gangrene. Dressed with betadine soaked 4x4, dry 4x4, Kerlix. -Afebrile, labs reviewed. -Empiric IV Vancomycin. Monitor local erythema -Radiographs reviewed: No acute abnormalities or ST gas -[facility] c'sed for medical management and preoperative clearance. -WBAT to LLE -DVT ppx lovenox. -Patient discussed with Dr. Mann who agrees with assessment and plan. Pt with mummification and drygangrene of left forefoot, patient had bypass surgery of LLE at [place] in August. Pt with some local erythema will monitor response to Abx. Continue daily betadine dressing changes. Plan for OR today (10/08/18) for left midfoot amputation (Open vs. Closed) at 7am. Consent obtained, NPO since midnight. Further plan per Dr. Mann SUBJECTIVE Pt seen and evaluated at bedside. Resting comfortably, minimal pain. Denies any overnight events orany n/v/f/c/sob or chest pain. No new pedal complaints. PHYSICAL EXAM Vital Signs BP 134/70 Pulse 85 Temp 98.1 F (36.7 C) (Oral) Resp 16 Ht 6' 2 Wt 99.1 kg (218 lb 7.6 oz) SpO2 94% BMI 28.05 kg/m Wt Readings from Last 25 Encounters: 10/04/18 99.1 kg (218 lb 7.6 oz) 09/20/18 107 kg (236 lb) 09/04/18 111.6 kg (246 lb) Ins & Outs Intake/Output Summary (Last 24 hours) at 10/08/2018 0421 Last data filed at 10/08/2018 0330 Gross per 24 hour Intake 2801.6 ml Output 300 ml Net 2501.6 ml General: No acute distress, resting comfortably in bed. LE Physical Exam: Exam stable. VASCULAR: DP/PT pulses faintly palpable bilaterally. CFT immediate to RLE, absent 2/2 to gangrene LLE NEUROLOGICAL: Light touch sensation decreased Distal to Midfoot. DERMATOLOGICAL: Dry gangrene with mummification of entire forefoot (digits 1-5) extending to the level of the metatarsals. Demarcation appreciated proximal to the gangrene with fibro-granular base. Betadine dressingwas in place, minimal drainage. No malodor appreciated. Mild erythema proximal to area of demarcation. No fluctuance, crepitus, proximal streaking. No open wounds, no erythema, no ecchymosis, no rashes to right lower extremity. MUSCULOSKELETAL: Muscle strength differed. Dry gangrene of left foot. LABS Lab Results Component Value Date WBC 3.95 (L) 10/05/2018 HGB 11.0 (L) 10/05/2018 HCT 31.9 (L) 10/05/2018 MCV 99.1 10/05/2018 PLT 237 10/05/2018 Lab Results Component Value Date GLUCOSE 92 10/05/2018 CALCIUM 9.1 10/05/2018 NA 143 10/05/2018 K 4.2 10/05/2018 CL 109 (H) 10/05/2018 BUN 9 10/05/2018 CREATININE 0.70 (L) 10/07/2018 XR Foot Left 3+ Views (Standard) Final Result 1. Limited evaluation due to overlying dressing material and diffuse osteopenia. No radiographic evidence of soft tissue gas. No radiographic evidence of new area of osseous destruction. 2. No acute osseous abnormalities identified. RECOMMENDATIONS: If further evaluation is clinically warranted, consider MRI or CT. TRP/dbg Workstation ID: [id number] Echocardiogram complete (Results Pending) * Demetrice Lomeli RPh,PharmD - 10/08/2018 12:15 AM EST Pharmacokinetic Consult Vancomycin Dosing Tristin Powell is a 78 y.o. male who has been consulted for vancomycin dosing for Left forefoot gangrene with local infection and plans for midfoot amputation. Relevant clinical data and objective history reviewed: Creatinine Date Value Ref Range Status 10/07/2018 0.70 (L) 0.80 - 1.30 mg/dL Final 10/05/2018 0.67 (L) 0.80 - 1.30 mg/dL Final 10/04/2018 0.92 0.80 - 1.30 mg/dL Final BUN Date Value Ref Range Status 10/05/2018 9 8 - 25 mg/dL Final 10/04/2018 12 8 - 25 mg/dL Final 09/13/2018 12 8 - 25 mg/dL Final Estimated Creatinine Clearance: 99.5 mL/min (A) (by C-G formula based on SCr of 0.7 mg/dL (L)). I/O last 3 completed shifts: In: 2501.6 [P.O.:1500; IV Piggyback:1001.6] Out: - Lab Results Component Value Date/Time WBC 3.95 (L) 10/05/2018 11:50 AM HGB 11.0 (L) 10/05/2018 11:50 AM HCT 31.9 (L) 10/05/2018 11:50 AM MCV 99.1 10/05/2018 11:50 AM PLT 237 10/05/2018 11:50 AM Temp Readings from Last 3 Encounters: 10/07/18 98.2 F (36.8 C) (Oral) 10/04/18 98.2 F (36.8 C) (Oral) 09/20/18 97.9 F (36.6 C) (Oral) Assessment/Plan 1. Vancomycin trough drawn before the fifith dose of therapy is sub-therapeutic at 10.9 mcg/mL (goal 15-20 mcg/mL). It was drawn ~17.5 hours after the previous dose (Q18H interval). 2. Scr is back to baseline. There was a slight elevation in the SCr on at admission at 0.92 mg/dL. Continue daily Scr monitoring while on vancomycin. 3. Will increase the vancomycin regimen to a Q12H interval. The dose will be adjusted down to 1500 mg (~15.1 mg/kg) so as to not change the total daily dose too aggressively considering the patient'wu and risk for nephrotoxicity (24 hour dose on the 1750 mg Q18H regimen was 2333.3 mg; now adjusted to 3000 mg in 24 hours). 4. Trough to be drawn before the 5th dose of this regimen, Tuesday 10/10 @ 10:00. Please call with questions. Thank you for the opportunity to participate in this patient's care. Demetrice Lomeli, PharmD, [facility] Vocera: ED Pharmacy * Aaorn Choi MD - 10/07/2018 11:56 AM EST [facility] DAILY PROGRESS NOTE Assessment and Plan 78 y.o. male patient of Flash Lovelace MD with history of PAD, CAD and HTN that presented to [facility] with need for left foot partial amputation. Left foot gangrene Plan for left midfoot amputation on 10/08/18 Management per podiatry Pre-op clearance Planned low risk podiatric procedure tentatively scheduled 10/08/18. He has known history of CAD with 3 vessel CABG in 2017 Denies typical angina with no active heart failure. METS > 4; RCRI = 1 Low risk patient for low risk procedure May proceed with his upcoming surgery with a low risk of perioperative cardiovascular complicationswith EKG and echocardiogram PVD LLE angiogram 09/05/18 with occluded stent, infrapopliteal stenosis, and severe ASPVD No enovascular options therefore s/p left fem to peroneal bypass 09/07/[address] Sarabia Continue plavix and statin ASA on hold for surgery CAD S/p 3 vessel bipass in 2017 Continue plavix, Statin and BB ASA on hold for surgery HTN Continue BB Insomnia Holding home Ambien Can start trazodone if needed Quality Measures DVT Prophylaxis: per primary Qureshi Catheter: none Disposition Discharge Location: TBD Estimated Discharge Date: TBD - surgery Monday Outpatient Testing: none Subjective Doing well. No complaints Review of Systems The following system(s) were reviewed: All other systems reviewed and negative, other than HPI. Objective BP 148/72 (BP Location: Left arm, Patient Position: Lying) Pulse 79 Temp 98.1 F (36.7 C) (Oral) Resp 16 Ht 6' 2 Wt 99.1 kg (218 lb 7.6 oz) SpO2 96% BMI 28.05 kg/m Physical Examination General Appearance: alert, cooperative, in no acute distress. HEENT: Head- normocephalic; Eyes- PERRLA, EOMI; Ears- external auditory canals clear, hearing intact; Nose- no nasal discharge; Throat- oropharynx normal Cardiovascular: regular rate and rhythm; normal S1, S2; no murmurs, rubs, clicks or gallops; no peripheral edema. Respiratory: lungs clear to auscultation; without wheezes, rales or rhonchi Abdomen: soft, non-tender, non-distended; positive bowel sounds Neurological: alert, oriented, normal speech; no focal findings or movement disorder noted Musculoskeletal: no significant deformity or tenderness to palpation Skin: normal coloration, texture and turgor; no lesions or eruptions Results/Medications Reviewed 10/07/18 11:56 AM Laboratory, Microbiology, Pathology, Radiology, Cardiology, Medications and Transcriptions * Ofe Wood DPM - 10/07/2018 10:09 AM EST Podiatry Progress Note IMPRESSION & PLAN: Tristin Powell is a 78 y.o. male with PMHx PVD (s/p bypass), HTN, HLD, Triple bypass and prior stent placement in heart, Prostate cancer presents with Left forefoot gangrene with local infection and plans for midfoot amputation. -Patient evaluated at bedside. Stable gangrene. Dressed with betadine soaked 4x4, dry 4x4, Kerlix. -Afebrile, labs reviewed. -Empiric IV Vancomycin. Monitor local erythema -Radiographs reviewed: No acute abnormalities or ST gas -[facility] c'sed for medical management and preoperative clearance. -WBAT to LLE -DVT ppx lovenox. -Patient discussed with Dr. Mann who agrees with assessment and plan. Pt with mummification and drygangrene of left forefoot, patient had bypass surgery of LLE at [place] in August. Pt with some local erythema will monitor response to Abx. Continue daily betadine dressing changes. Plan for OR on Monday (10/08/18) for left midfoot amputation (Open vs. Closed) at 7am. Consent obtained. [facility] consulted for medical management. Patient will require preoperative risk stratification. Appreciate [facility] assistance. Further plan per Dr. Mann SUBJECTIVE Pt seen and evaluated at bedside. Resting comfortably, minimal pain. Denies any overnight events orany n/v/f/c/sob or chest pain. Anxious about procedure this morning, but knows it must be done. No new pedal complaints. PHYSICAL EXAM Vital Signs BP 148/72 (BP Location: Left arm, Patient Position: Lying) Pulse 79 Temp 98.1 F (36.7 C) (Oral) Resp 16 Ht 6' 2 Wt 99.1 kg (218 lb 7.6 oz) SpO2 96% BMI 28.05 kg/m Wt Readings from Last 25 Encounters: 10/04/18 99.1 kg (218 lb 7.6 oz) 09/20/18 107 kg (236 lb) 09/04/18 111.6 kg (246 lb) Ins & Outs Intake/Output Summary (Last 24 hours) at 10/07/2018 1010 Last data filed at 10/07/2018 0752 Gross per 24 hour Intake 1701.57 ml Output Net 1701.57 ml General: No acute distress, resting comfortably in bed. LE Physical Exam: Exam stable. VASCULAR: DP/PT pulses faintly palpable bilaterally. CFT immediate to RLE, absent 2/2 to gangrene LLE NEUROLOGICAL: Light touch sensation decreased Distal to Midfoot. DERMATOLOGICAL: Dry gangrene with mummification of entire forefoot (digits 1-5) extending to the level of the metatarsals. Demarcation appreciated proximal to the gangrene with fibro-granular base. Betadine dressingwas in place, minimal drainage. No malodor appreciated. Mild erythema proximal to area of demarcation. No fluctuance, crepitus, proximal streaking. No open wounds, no erythema, no ecchymosis, no rashes to right lower extremity. MUSCULOSKELETAL: Muscle strength differed. Dry gangrene of left foot. LABS Lab Results Component Value Date WBC 3.95 (L) 10/05/2018 HGB 11.0 (L) 10/05/2018 HCT 31.9 (L) 10/05/2018 MCV 99.1 10/05/2018 PLT 237 10/05/2018 Lab Results Component Value Date GLUCOSE 92 10/05/2018 CALCIUM 9.1 10/05/2018 NA 143 10/05/2018 K 4.2 10/05/2018 CL 109 (H) 10/05/2018 BUN 9 10/05/2018 CREATININE 0.70 (L) 10/07/2018 XR Foot Left 3+ Views (Standard) Final Result 1. Limited evaluation due to overlying dressing material and diffuse osteopenia. No radiographic evidence of soft tissue gas. No radiographic evidence of new area of osseous destruction. 2. No acute osseous abnormalities identified. RECOMMENDATIONS: If further evaluation is clinically warranted, consider MRI or CT. [facility]/dbg Workstation ID: [id number] Echocardiogram complete (Results Pending) * Aaron Choi MD - 10/06/2018 10:50 AM EST [facility] DAILY PROGRESS NOTE Assessment and Plan 78 y.o. male patient of Flash Lovelace MD with history of PAD, CAD and HTN that presented to [facility] with need for left foot partial amputation. Left foot gangrene Plan for left midfoot amputation on 10/08/18 Management per podiatry Pre-op clearance Planned low risk podiatric procedure tentatively scheduled 10/08/18. He has known history of CAD with 3 vessel CABG in 2017 Denies typical angina with no active heart failure. METS > 4; RCRI = 1 Low risk patient for low risk procedure May proceed with his upcoming surgery with a low risk of perioperative cardiovascular complicationswith EKG and echocardiogram PVD LLE angiogram 09/05/18 with occluded stent, infrapopliteal stenosis, and severe ASPVD No enovascular options therefore s/p left fem to peroneal bypass 09/07/[address] Sarabia Continue plavix and statin ASA on hold for surgery CAD S/p 3 vessel bipass in 2017 Continue plavix, Statin and BB ASA on hold for surgery HTN Continue BB Insomnia Holding home Ambien Can start trazodone if needed Quality Measures DVT Prophylaxis: per primary Qureshi Catheter: none Disposition Discharge Location: TBD Estimated Discharge Date: TBD - surgery Monday Outpatient Testing: none Subjective Doing well. No complaints Review of Systems The following system(s) were reviewed: All other systems reviewed and negative, other than HPI. Objective BP 131/66 (BP Location: Left arm, Patient Position: Lying) Pulse 80 Temp 99.1 F (37.3 C) (Oral) Resp 15 Ht 6' 2 Wt 99.1 kg (218 lb 7.6 oz) SpO2 96% BMI 28.05 kg/m Physical Examination General Appearance: alert, cooperative, in no acute distress. HEENT: Head- normocephalic; Eyes- PERRLA, EOMI; Ears- external auditory canals clear, hearing intact; Nose- no nasal discharge; Throat- oropharynx normal Cardiovascular: regular rate and rhythm; normal S1, S2; no murmurs, rubs, clicks or gallops; no peripheral edema. Respiratory: lungs clear to auscultation; without wheezes, rales or rhonchi Abdomen: soft, non-tender, non-distended; positive bowel sounds Neurological: alert, oriented, normal speech; no focal findings or movement disorder noted Musculoskeletal: no significant deformity or tenderness to palpation Skin: normal coloration, texture and turgor; no lesions or eruptions Results/Medications Reviewed 10/06/18 10:51 AM Laboratory, Microbiology, Pathology, Radiology, Cardiology, Medications and Transcriptions * Ofe Wood DPM - 10/06/2018 8:21 AM EST Podiatry Progress Note IMPRESSION & PLAN: Tristin Powell is a 78 y.o. male with PMHx PVD (s/p bypass), HTN, HLD, Triple bypass and prior stent placement in heart, Prostate cancer presents with Left forefoot gangrene with local infection and plans for midfoot amputation. -Patient evaluated at bedside. Stable gangrene. Dressed with betadine soaked 4x4, dry 4x4, Kerlix. -Afebrile, labs reviewed. ESR 9 -Empiric IV Vancomycin. Monitor local erythema -Radiographs reviewed: No acute abnormalities or ST gas -[facility] c'sed for medical management and preoperative clearance. -WBAT to LLE -DVT ppx lovenox. -Patient discussed with Dr. Mann who agrees with assessment and plan. Pt with mummification and drygangrene of left forefoot, patient had bypass surgery of LLE at [place] in August. Pt with some local erythema will monitor response to Abx. Continue daily betadine dressing changes. Plan for OR on Monday (10/08/18) for left midfoot amputation (Open vs. Closed) at 7am. Consent to be obtained. [facility]. Patient will require preoperative risk stratification. [facility] assistance. Further plan per Dr. Mann SUBJECTIVE Pt seen and evaluated at bedside. Resting comfortably, minimal pain. Denies any overnight events orany n/v/f/c/sob or chest pain. No new pedal complaints. PHYSICAL EXAM Vital Signs BP 131/66 (BP Location: Left arm, Patient Position: Lying) Pulse 80 Temp 99.1 F (37.3 C) (Oral) Resp 15 Ht 6' 2 Wt 99.1 kg (218 lb 7.6 oz) SpO2 96% BMI 28.05 kg/m Wt Readings from Last 25 Encounters: 10/04/18 99.1 kg (218 lb 7.6 oz) 09/20/18 107 kg (236 lb) 09/04/18 111.6 kg (246 lb) Ins & Outs Intake/Output Summary (Last 24 hours) at 10/06/2018 0821 Last data filed at 10/06/2018 0401 Gross per 24 hour Intake 400 ml Output 750 ml Net -350 ml General: No acute distress, resting comfortably in bed. LE Physical Exam: Exam stable. VASCULAR: DP/PT pulses faintly palpable bilaterally. CFT immediate to RLE, absent 2/2 to gangrene LLE NEUROLOGICAL: Light touch sensation decreased Distal to Midfoot. DERMATOLOGICAL: Dry gangrene with mummification of entire forefoot (digits 1-5) extending to the level of the metatarsals. Demarcation appreciated proximal to the gangrene with fibro-granular base. Betadine dressingwas in place, minimal drainage. No malodor appreciated. Mild erythema proximal to area of demarcation. No fluctuance, crepitus, proximal streaking. No open wounds, no erythema, no ecchymosis, no rashes to right lower extremity. MUSCULOSKELETAL: Muscle strength differed. Dry gangrene of left foot. LABS Lab Results Component Value Date WBC 3.95 (L) 10/05/2018 HGB 11.0 (L) 10/05/2018 HCT 31.9 (L) 10/05/2018 MCV 99.1 10/05/2018 PLT 237 10/05/2018 Lab Results Component Value Date GLUCOSE 92 10/05/2018 CALCIUM 9.1 10/05/2018 NA 143 10/05/2018 K 4.2 10/05/2018 CL 109 (H) 10/05/2018 BUN 9 10/05/2018 CREATININE 0.67 (L) 10/05/2018 XR Foot Left 3+ Views (Standard) Preliminary Result Limited evaluation due to overlying dressing material and diffuse osteopenia. No radiographic evidence of soft tissue gas. No radiographic evidence of new area of osseous destruction. No acute osseous abnormalities identified. RECOMMENDATIONS: If further evaluation is clinically warranted, consider MRI. [facility]/dbg Workstation ID: [id number] Echocardiogram complete (Results Pending) * Lazaro Clifton DPM - 10/05/2018 6:40 AM EST Podiatry Progress Note IMPRESSION & PLAN: Tristin Powell is a 78 y.o. male with PMHx PVD (s/p bypass), HTN, HLD, Triple bypass and prior stent placement in heart, Prostate cancer presents with Left forefoot gangrene with local infection and plans for midfoot amputation. -Patient evaluated at bedside. Stable gangrene. Dressed with betadine soaked 4x4, dry 4x4, Kerlix. -Afebrile, labs reviewed. ESR 9 -Empiric IV Vancomycin. Monitor local erythema -Radiographs reviewed: No acute abnormalities or ST gas -[facility] c'sed for medical management and preoperative clearance. -WBAT to LLE -DVT ppx lovenox. -Patient discussed with Dr. Mann who agrees with assessment and plan. Pt with mummification and drygangrene of left forefoot, patient had bypass surgery of LLE at [place] in August. Pt with some local erythema will monitor response to Abx. Continue daily betadine dressing changes. Plan for OR on Monday (10/08/18) for left midfoot amputation (Open vs. Closed). [facility] consulted for medical management. Patient will require preoperative risk stratification. Appreciate [facility] assistance. Further plan per Dr. Mann SUBJECTIVE Pt seen and evaluated at bedside. Resting comfortably, minimal pain. Denies any overnight events orany n/v/f/c/sob or chest pain. No new pedal complaints. PHYSICAL EXAM Vital Signs BP 147/66 (BP Location: Left arm, Patient Position: Lying) Pulse 90 Temp 99 F (37.2 C) (Oral) Resp 14 Ht 6' 2 Wt 99.1 kg (218 lb 7.6 oz) SpO2 93% BMI 28.05 kg/m Wt Readings from Last 25 Encounters: 10/04/18 99.1 kg (218 lb 7.6 oz) 09/20/18 107 kg (236 lb) 09/04/18 111.6 kg (246 lb) Ins & Outs Intake/Output Summary (Last 24 hours) at 10/05/2018 0641 Last data filed at 10/05/2018 0401 Gross per 24 hour Intake 350 ml Output 800 ml Net -450 ml General: No acute distress, resting comfortably in bed. LE Physical Exam: Exam stable. VASCULAR: DP/PT pulses faintly palpable bilaterally. CFT immediate to RLE, absent 2/2 to gangrene LLE NEUROLOGICAL: Light touch sensation decreased Distal to Midfoot. DERMATOLOGICAL: Dry gangrene with mummification of entire forefoot (digits 1-5) extending to the level of the metatarsals. Demarcation appreciated proximal to the gangrene with fibro-granular base. Betadine dressingwas in place, minimal drainage. No malodor appreciated. Mild erythema proximal to area of demarcation. No fluctuance, crepitus, proximal streaking. No open wounds, no erythema, no ecchymosis, no rashes to right lower extremity. MUSCULOSKELETAL: Muscle strength differed. Dry gangrene of left foot. LABS Lab Results Component Value Date WBC 4.62 10/04/2018 HGB 11.3 (L) 10/04/2018 HCT 32.7 (L) 10/04/2018 MCV 97.3 10/04/2018 PLT 248 10/04/2018 Lab Results Component Value Date GLUCOSE 92 10/05/2018 CALCIUM 9.1 10/05/2018 NA 143 10/05/2018 K 4.2 10/05/2018 CL 109 (H) 10/05/2018 BUN 9 10/05/2018 CREATININE 0.67 (L) 10/05/2018 XR Foot Left 3+ Views (Standard) Preliminary Result Limited evaluation due to overlying dressing material and diffuse osteopenia. No radiographic evidence of soft tissue gas. No radiographic evidence of new area of osseous destruction. No acute osseous abnormalities identified. RECOMMENDATIONS: If further evaluation is clinically warranted, consider MRI. [facility]/dbg Workstation ID: [id number] Associated attestation - Flynn Mann DPM - 10/05/2018 12:36 PM EST The patient was seen and evaluated at the bedside with the resident. The note was reviewed and agree with the findings and the plan. Plan for OR Monday for left midfoot amputation and left DEREK. Closure of the surgical wound at that time is pending the viability of the adjacent soft tissue envelop. Consider delayed primary closure as indicated. Will follow. Flynn Mann DPM, FACFAS Electronically signed by the above physician 10/05/18 in this encounter* Flynn Mann DPM - 10/18/2018 6:10 PM EST Patient Name: Tristin Powell MR #: [id number] : 1940 Physicians: Flash Lovelace MD (Family); No ref. provider found (Referring) History of Present Illness: Tristin Powell is a 78 y.o. male Dictation on: 10/18/2018 6:12 PM by: FLYNN MANN [[id number]] History: The following portions of the patient's history were reviewed and updated as appropriate: allergies, current medications, past family history, past medical history, past social history, past surgicalhistory and problem list. Allergy Information: I have reviewed the patient's allergies. Patient has no known allergies. Home Medications: Current Outpatient Medications Medication Sig Dispense Refill aspirin 81 MG EC tablet Take 81 mg by mouth daily . atorvastatin (LIPITOR) 40 MG tablet Take 40 mg by mouth daily . bisacodyl (DULCOLAX) 5 mg EC tablet Take 5 mg by mouth 2 (two) times a day as needed for constipation . doxycycline hyclate (VIBRA-TABS) 100 MG tablet Take 1 (one) tablet (100 mg total) by mouth 2 (two) times a day for 10 days . 20 tablet 0 enoxaparin (LOVENOX) 40 mg/0.4 mL Syrg Inject 0.4 mL (40 mg total) under the skin daily . 12 mL 0 fluticasone (FLONASE) 50 mcg/actuation nasal spray 2 (two) sprays by Each Nare route daily . 16 g 12 gabapentin (NEURONTIN) 100 MG capsule Take 2 (two) capsules (200 mg total) by mouth every 8 (eight)hours (Days supply per fill: 30) . 180 capsule 0 metoprolol tartrate (LOPRESSOR) 50 MG tablet Take 50 mg by mouth 2 (two) times a day . ondansetron (ZOFRAN) 4 MG tablet Take 1 (one) tablet (4 mg total) by mouth every 8 (eight) hours asneeded for nausea . 20 tablet 0 oxyCODONE-acetaminophen (PERCOCET) 5-325 mg per tablet Take 1 (one) tablet by mouth every 4 (four) hours as needed (may repeat) (Days supply per fill: 7) . 20 tablet 0 pantoprazole (PROTONIX) 40 MG tablet Take 1 (one) tablet (40 mg total) by mouth daily . 30 tablet 0 clopidogrel (PLAVIX) 75 mg tablet Take 1 (one) tablet (75 mg total) by mouth daily . 30 tablet 1 No current facility-administered medications for this visit. Review of Systems: The following system(s) were reviewed and pertinent findings noted: Constitutional: negative Cardiovascular: positive for PAD and CLI Integumentary: ulceration Musculoskeletal:negative Neurological: negative Physical Examination: Vital Signs: BP 137/79 Pulse 86 Temp 98.4 F (36.9 C) (Oral) Resp 16 Dictation on: 10/18/2018 6:13 PM by: FLYNN MANN [[id number]] Assessment and Plan: SNOMED CT(R) 1. Gangrene (HCC) GANGRENOUS DISORDER 2. 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 (HCC) HISTORY OF AMPUTATION OF FOOT 3. PVD (peripheral vascular disease) (HCC) PERIPHERAL VASCULAR DISEASE Dictation on: 10/18/2018 6:14 PM by: FLYNN MANN [[id number]] Flynn Mann DPM, FACFAS Electronically signed by the above physician 10/18/18 * Maia Duvall RN - 10/18/2018 4:16 PM EST Dressing changed by Dr Mann. Betadine, 4x4's, ABD pad, specialist cast padding, splint, rio bandages * Maia Duvall RN - 10/18/2018 3:39 PM EST in this encounter* Mine Lew LISW - 10/19/2018 8:38 AM EST Pt was seen in clinic 10/18/18. [facility] faxed signed d/c orders/instructions to pt's SNF, [facility]. in this encounter* Mine Lew LISW - 10/26/2018 9:19 AM EST Pt was seen in wound clinic 10/25/18. [facility] faxed signed orders/instructions to pt's [facility], [facility]. in this encounter* Radha Parker RN - 10/31/2018 4:45 PM EST Opened in error. in this encounter* Eugene Barnett MD - 12/17/2018 9:57 PM EDT [facility] [address] [place] [address] FAX [phone] Tristin Powell 1940 male MD Flash Peña MD [phone] Chief Complaint Patient presents with Cerumen Impaction HPI: 78-year-old male patient comes to have his ears checked. He has noticed clicking on his TMJ area for the last few years. He went to his dentist who performed a mouthguard that he uses at night. That seems to help his clicking. When he stops using the mouthguard he starts noticing the clicking again and sometimes also some pain and pressure in that ear. Lately has been noticing more fullness and pressure in the right ear and more pain. He wears a partial dentures which seems to be somewhat worn. His hearing has not changed. He has taken prednisone for this and he does help to some extent.He wonders if this is an ear issue or a wax problem. Never had problems with his he was before. Allergies: Doxycycline Current Outpatient Medications: amoxicillin-clavulanate (AUGMENTIN) 875-125 mg per tablet, Take 1 tablet by mouth every 12 (twelve)hours ., Disp: , Rfl: 0 aspirin 81 MG EC tablet, Take 81 mg by mouth daily ., Disp: , Rfl: atorvastatin (LIPITOR) 40 MG tablet, Take 40 mg by mouth daily ., Disp: , Rfl: benzonatate (TESSALON) 100 MG capsule, Take 100 mg by mouth 3 (three) times a day as needed for cough ., Disp: , Rfl: bisacodyl (DULCOLAX) 5 mg EC tablet, Take 5 mg by mouth 2 (two) times a day as needed for constipation ., Disp: , Rfl: docusate sodium (COLACE) 100 MG capsule, Take 100 mg by mouth ., Disp: , Rfl: fluticasone (FLONASE) 50 mcg/actuation nasal spray, 2 (two) sprays by Each Nare route daily ., Disp: 16 g, Rfl: 12 lactobacillus combo no.11 (PROBIOTIC) 15 billion cell CpSP, Take by mouth ., Disp: , Rfl: metoprolol tartrate (LOPRESSOR) 50 MG tablet, Take 50 mg by mouth 2 (two) times a day ., Disp: , Rfl: ondansetron (ZOFRAN) 4 MG tablet, Take 1 (one) tablet (4 mg total) by mouth every 8 (eight) hours as needed for nausea ., Disp: 20 tablet, Rfl: 0 polyethylene glycol (MIRALAX) 17 gram powder, Take 17 g by mouth ., Disp: , Rfl: rivaroxaban (XARELTO) 20 mg Tab, Take 20 mg by mouth ., Disp: , Rfl: gabapentin (NEURONTIN) 100 MG capsule, Take 2 (two) capsules (200 mg total) by mouth every 8 (eight) hours (Days supply per fill: 30) ., Disp: 180 capsule, Rfl: 0 pantoprazole (PROTONIX) 40 MG tablet, Take 1 (one) tablet (40 mg total) by mouth daily ., Disp: 30 tablet, Rfl: 0 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 Procedure: LEFT MIDFOOT AMPUTATION; Surgeon: Flynn Mann DPM; Location: [facility]; Service: Podiatry ANKLE SURGERY Left BYPASS PERONEAL FEMORAL Right 09/07/2018 Procedure: BYPASS PERONEAL FEMORAL, RIGHT SAPHENOUS VEIN HARVEST, COMPLETION ANGIOGRAM; Surgeon: Mohsen Sarabia MD; Location: [facility] NEURO OR; Service: Cardiovascular CARDIAC CATHETERIZATION Left 09/05/2018 Procedure: Angio Lower Extremity; Surgeon: Ben Hahn MD; 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; Service: Cardiovascular CARDIAC SURGERY 2017 triple bypass EGD N/A 10/10/2018 Procedure: ESOPHAGOGASTRODUODENOSCOPY; Surgeon: Ben Jensen MD; Location: [facility]; Service: Gastroenterology EYE SURGERY Right 2015 FOOT SURGERY ORTHOPEDIC SURGERY STENT PLACEMENT Social History Socioeconomic History Marital status: Spouse name: Not on file Number of children: Not on file Years of education: Not on file Highest education level: Not on file Social Needs Financial resource strain: Not on file Food insecurity - worry: Not on file Food insecurity - inability: Not on file Transportation needs - medical: Not on file Transportation needs - non-medical: Not on file Occupational History Not on file Tobacco Use Smoking status: Never Smoker Smokeless tobacco: Never Used Substance and Sexual Activity Alcohol use: Not Currently Drug use: Never Sexual activity: Not Currently Other Topics Concern Not on file Social History Narrative Not on file Family History Problem Relation Age of Onset Prostate cancer Brother No Known Problems Mother No Known Problems Father ROS: Review of Systems Constitutional: Negative for fever. HENT: Positive for congestion and ear pain. Negative for sore throat and trouble swallowing. Respiratory: Negative. Cardiovascular: Negative. Gastrointestinal: Negative. Endocrine: Negative. Musculoskeletal: Positive for arthralgias. Neurological: Negative. Physical Exam: Physical Exam Constitutional: He appears well-developed and well-nourished. HENT: Head: Normocephalic and atraumatic. Right Ear: Tympanic membrane, external ear and ear canal normal. No drainage. Tympanic membrane is not perforated and not erythematous. No middle ear effusion. Decreased hearing is noted. Left Ear: Tympanic membrane, external ear and ear canal normal. No drainage. Tympanic membrane is not perforated and not erythematous. No middle ear effusion. Decreased hearing is noted. Nose: No mucosal edema, nasal deformity or septal deviation. Mouth/Throat: Uvula is midline, oropharynx is clear and moist and mucous membranes are normal. He has dentures (Partial dentures. They seemed to be somewhat worn out.). No oral lesions. No trismus (Clicking on the TMJ area bilaterally) in the jaw. Abnormal dentition (Several teeth missing). No poste rior oropharyngeal erythema. Neck: Trachea normal, normal range of motion and phonation normal. Neck supple. Normal carotid pulses present. No tracheal tenderness and no muscular tenderness present. No thyroid mass present. No swelling of the salivary glands. Lymphadenopathy: He has no cervical adenopathy. Neurological: He is alert. No facial nerve deficit. Impression/Plan: Problem List Items Addressed This Visit None Visit Diagnoses Referred otalgia of right ear - Primary Bilateral temporomandibular joint pain I explained to him that there were no signs of infection in his ears or wax impaction. The pressurein his ears as well as the pain that he is having on and off are very likely secondary to TMJ problems and referred pain to the ears. He can apply heat to the area and use Motrin or Advil. I gave himinformation for him to see Dr. Braun to help him with the TMJ problem. Follow up: Return if symptoms worsen or fail to improve. 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 Sarabia, agrees with above recommendation, Dr. Sarabia to review results once performed. KULDEEP Morales to order patient testing, track results. Physicians: Flash Lovelace MD (Family); No ref. provider found (Referring) Chief Complaint/Reason for Visit: PAD, History of Present Illness: Tristin Powell is a 79 y.o. male with history of PAD, left foot partial amputation, comes in for routine follow-up. He is complaining of some edema, coolness and pain to rightfoot. ABIs on right 0.79, TBI 0.57. Mention of popliteal aneurysm on angiogram with increased symptoms, will obtain a CTA with runoff, patient and family are very interested in pursuing evaluation ofthis right leg. Measurements Right Pressures/Ratios Name Value Units Brachial 150 mmHg Ankle (Posterior Tibial) 119 mmHg Ankle (Dorsalis Pedis) 105 mmHg Toe 86 mmHg YAMILE 0.79 ratio TBI 0.57 ratio Left Pressures/Ratios Name Value Units Brachial 142 mmHg Ankle (Posterior Tibial) 129 mmHg Ankle (Dorsalis Pedis) 132 mmHg YAMILE 0.88 ratio History: 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 Procedure: LEFT MIDFOOT AMPUTATION; Surgeon: Flynn Mann DPM; Location: [facility]; Service: Podiatry ANKLE SURGERY Left BYPASS PERONEAL FEMORAL Right 09/07/2018 Procedure: BYPASS PERONEAL FEMORAL, RIGHT SAPHENOUS VEIN HARVEST, COMPLETION ANGIOGRAM; Surgeon: Mohsen Sarabia MD; Location: [facility]UR[facility] OR; Service: Cardiovascular CARDIAC CATHETERIZATION Left 09/05/2018 Procedure: Angio Lower Extremity; Surgeon: Ben Hahn MD; 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; Service: Cardiovascular CARDIAC SURGERY 2017 triple bypass EGD N/A 10/10/2018 Procedure: ESOPHAGOGASTRODUODENOSCOPY; Surgeon: Ben Jensen MD; Location: [facility]; Service: Gastroenterology EYE SURGERY Right 2015 FOOT SURGERY ORTHOPEDIC SURGERY STENT PLACEMENT Family History Problem Relation Age of Onset Prostate cancer Brother No Known Problems Mother No Known Problems Father Social History Socioeconomic History Marital status: Spouse name: Not on file Number of children: Not on file Years of education: Not on file Highest education level: Not on file Occupational History Not on file Social Needs Financial resource strain: Not on file Food insecurity Worry: Not on file Inability: Not on file Transportation needs Medical: Not on file Non-medical: Not on file Tobacco Use Smoking status: Never Smoker Smokeless tobacco: Never Used Substance and Sexual Activity Alcohol use: Not Currently Drug use: Never Sexual activity: Not Currently Lifestyle Physical activity Days per week: Not on file Minutes per session: Not on file Stress: Not on file Relationships Social connections Talks on phone: Not on file Gets together: Not on file Attends roman catholic service: Not on file Active member of club or organization: Not on file Attends meetings of clubs or organizations: Not on file Relationship status: Not on file Other Topics Concern Not on file Social History Narrative Not on file Allergy Information: I have reviewed the patient's allergies. Doxycycline Home Medications: Outpatient Medications as of 10/09/2019 Medication Sig aspirin 81 MG EC tablet Take 81 mg by mouth daily . atorvastatin (LIPITOR) 40 MG tablet Take 40 mg by mouth daily . fluticasone (FLONASE) 50 mcg/actuation nasal spray 2 (two) sprays by Each Nare route daily . losartan (COZAAR) 25 MG tablet Take 25 mg by mouth daily . metoprolol tartrate (LOPRESSOR) 50 MG tablet Take 50 mg by mouth 2 (two) times a day . polyethylene glycol (MIRALAX) 17 gram powder Take 17 g by mouth . rivaroxaban (XARELTO) 20 mg Tab Take 20 mg by mouth . zolpidem (AMBIEN) 10 mg tablet Take 10 mg by mouth nightly . Tristin Powell Home Medication Instructions Prior to Surgery LOLA: Printed on:10/09/19 9730 Medication Information Take last dose on Take the morning of surgery Comment(s) aspirin 81 MG EC tablet Take 81 mg by mouth daily . atorvastatin (LIPITOR) 40 MG tablet Take 40 mg by mouth daily . fluticasone (FLONASE) 50 mcg/actuation nasal spray 2 (two) sprays by Each Nare route daily . losartan (COZAAR) 25 MG tablet Take 25 mg by mouth daily . metoprolol tartrate (LOPRESSOR) 50 MG tablet Take 50 mg by mouth 2 (two) times a day . nitroGLYCERIN (NITROSTAT) 0.[address] under the tongue every 4 to 6 hours as needed . polyethylene glycol (MIRALAX) 17 gram powder Take 17 g by mouth . rivaroxaban (XARELTO) 20 mg Tab Take 20 mg by mouth . zolpidem (AMBIEN) 10 mg tablet Take 10 mg by mouth nightly . Review of Systems: The following system(s) were reviewed and negative. Pertinent positive and negative findings are noted in the HPI. [x] Const [x] Eyes [x] ENT [x] Resp [] CV [x] GI [x] [x] Neuro [x] Musc [x] Skin [x] Psych [x] Endo [x] Allergy [x] Heme/Lymph Physical Examination: Vital Signs: BP 135/66 (BP Location: Right arm, Patient Position: Sitting, BP Cuff Size: Adult) Pulse 71 Ht 6' 2 Wt 111.1 kg (245 lb) SpO2 95% BMI 31.46 kg/m General: Vital signs as above; normal development; well groomed; appears stated age Head: Normocephalic, without obvious abnormality, atraumatic Eyes: PERRL, conjunctiva/corneas clear Mouth/Throat: Lips, mucosa, and tongue normal Neck: Supple, symmetrical, trachea midline Lungs: Clear to auscultation bilaterally, respirations unlabored; normal respiratory effort Chest Wall: No tenderness or deformity Cardiovascular: Regular rate and rhythm, S1 and S2 normal, no murmur, rub or gallop; right foot with + doppler signals per DP and PT Abdomen: Soft, non-tender, non-distended; bowel sounds active all four quadrants, no masses, no organomegaly Skin: Skin color, texture normal, no rashes or lesions Musculoskeletal: Partial foot amputation on left, right foot with pain on movement, some edema Neurologic: Complains of neuropathic pain to left foot, phantom pain Psych: Mood and affect appropriate Lab Results Component Value Date HGBA1C 4.7 10/04/2018 Laboratory and Additional Data Reviewed: Laboratory 10/09/19 5:08 PM Microbiology 10/09/19 5:08 PM Pathology 10/09/19 5:08 PM Radiology independently reviewed 10/09/19 5:08 PM Cardiology 10/09/19 5:08 PM Medications 10/09/19 5:08 PM Transcriptions 10/09/19 5:08 PM The total time spent for this visit was 50 minutes. Greater than 50%of the time being spent on counseling and coordination of care regarding the diagnosis & follow-upneeds. Rose Rosales CNP [phone] documented in this encounter* Flynn Mann DPM - 10/25/2018 6:03 PM EST Patient Name: Tristin Powell MR #: [id number] : 1940 Physicians: Flash Lovelace MD (Family); No ref. provider found (Referring) History of Present Illness: Tristin Powell is a 78 y.o. male Dictation on: 10/25/2018 6:03 PM by: FLYNN MANN [[id number]] History: The following portions of the patient's history were reviewed and updated as appropriate: allergies, current medications, past family history, past medical history, past social history, past surgicalhistory and problem list. Allergy Information: I have reviewed the patient's allergies. Doxycycline Home Medications: Current Outpatient Medications Medication Sig Dispense Refill benzonatate (TESSALON) 100 MG capsule Take 100 mg by mouth 3 (three) times a day as needed for cough . docusate sodium (COLACE) 100 MG capsule Take 100 mg by mouth . lactobacillus combo no.11 (PROBIOTIC) 15 billion cell CpSP Take by mouth . polyethylene glycol (MIRALAX) 17 gram powder Take 17 g by mouth . amoxicillin-clavulanate (AUGMENTIN) 875-125 mg per tablet Take 1 tablet by mouth every 12 (twelve) hours . 0 aspirin 81 MG EC tablet Take 81 mg by mouth daily . atorvastatin (LIPITOR) 40 MG tablet Take 40 mg by mouth daily . bisacodyl (DULCOLAX) 5 mg EC tablet Take 5 mg by mouth 2 (two) times a day as needed for constipation . enoxaparin (LOVENOX) 40 mg/0.4 mL Syrg Inject 0.4 mL (40 mg total) under the skin daily . 12 mL 0 fluticasone (FLONASE) 50 mcg/actuation nasal spray 2 (two) sprays by Each Nare route daily . 16 g 12 gabapentin (NEURONTIN) 100 MG capsule Take 2 (two) capsules (200 mg total) by mouth every 8 (eight)hours (Days supply per fill: 30) . 180 capsule 0 metoprolol tartrate (LOPRESSOR) 50 MG tablet Take 50 mg by mouth 2 (two) times a day . ondansetron (ZOFRAN) 4 MG tablet Take 1 (one) tablet (4 mg total) by mouth every 8 (eight) hours asneeded for nausea . 20 tablet 0 pantoprazole (PROTONIX) 40 MG tablet Take 1 (one) tablet (40 mg total) by mouth daily . 30 tablet 0 rivaroxaban (XARELTO) 20 mg Tab Take 20 mg by mouth . No current facility-administered medications for this visit. Review of Systems: The following system(s) were reviewed and pertinent findings noted: Constitutional: negative Cardiovascular: negative Integumentary: ulceration Musculoskeletal:negative Neurological: negative Physical Examination: Vital Signs: BP (!) 176/74 Pulse 96 Temp 99.4 F (37.4 C) (Oral) Resp 16 Dictation on: 10/25/2018 6:04 PM by: FLYNN MANN [[id number]] Assessment and Plan: SNOMED CT(R) 1. 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 Gangrene (HCC) GANGRENOUS DISORDER 3. PVD (peripheral vascular disease) (HCC) PERIPHERAL VASCULAR DISEASE 4. 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 Lower extremity edema EDEMA OF LOWER EXTREMITY Dictation on: 10/25/2018 6:04 PM by: FLYNN MANN [[id number]] Flynn Mann DPM, FACFAS Electronically signed by the above physician 10/25/18 * Lori Velez RN - 10/25/2018 3:46 PM EST in this encounter* Mine Lew LISW - 09/21/2018 8:27 AM EST Pt was seen in clinic 09/20/18. [facility] faxed signed d/c orders/instructions to pt's [facility], [facility] [place]. in this encounter* Mohsen Sarabia MD - 10/31/2018 4:09 PM EST I saw Mr Powell for a follow up visit today. He underwent left fem to peroneal bypass on 09/07 for gangrene of the left forefoot. He subsequently underwent left chopart amputation. He has been doing well and podiatry is happy with how it is healing. He is scheduled to begin bearing weight with a cam walker soon. NAd breathing comfortably in a wheelchair. Left foot with bulky dressing to the knee, not taken down Left Graft #1 PSV Name Value Units Inflow Artery 103 cm/sec Prox Anastomosis 182 cm/sec Prox Graft 150 cm/sec Prox-Mid Graft 113 cm/sec Mid Graft 107 cm/sec Mid-Distal Graft 71 cm/sec Dist Graft 118 cm/sec Dist Anastomosis 81 cm/sec Outflow Artery 98 cm/sec Graft #1 Stenosis 54 cm/sec Graft #1 Prestenosis 118 cm/sec Graft #1 Stenosis Ratio 2.2 ratio Measurements Right Pressures/Ratios Name Value Units Brachial 174 mmHg Ankle (Posterior Tibial) 125 mmHg Ankle (Dorsalis Pedis) 119 mmHg Toe 100 mmHg YAMILE 0.71 ratio TBI 0.57 ratio Left Pressures/Ratios Name Value Units Brachial 176 mmHg Ankle (Posterior Tibial) 165 mmHg Ankle (Dorsalis Pedis) 175 mmHg YAMILE 0.99 ratio A/p:: 78yo man s/p left fem tib bypass and healing choparts amputation, no elevated velocities on graft ultrasound, YAMILE normal. Will see back in another 3mo for repeat graft U/S and ABIs in this encounter* Mohsen Sarabia MD - 03/13/2019 9:57 AM EDT I saw Mr Powell for a follow up visit today. He underwent left fem to peroneal bypass on 09/07 for gangrene of the left forefoot. 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 He continues to have pain in the bottom of the foot and shooting pain down the leg. He feels that his prosthetic does not fit quite right and wishes to see a new prostetist. Of note, he has known carotid disease which has not had any surveillance for a while. He wishes to have this studied. He continues on his xarelto and Asa BP (!) 156/73 Pulse 72 Resp 16 Ht 6' 2 Wt 98.9 kg (218 lb) SpO2 98% BMI 27.99 kg/m NAD Breathing comfortably Bilateral leg incisions all well healed Chopart's well healed. Foot WWP YAMILE 0.89 No flow limiting stenosis of the bypass graft I will order carotid duplex and review and we will also see him back in 6mo with noninvasive testing for graft surveillance. documented in this encounter Assessments Note CONSULTATION DICTATED BY: DO MOI DAVIS MD DATE OF SERVICE: 11/12/2019 NAME: TRISTIN POWELL DATE OF : 1940 AMENDED TO CORRECT FIN NUMBER SURGERY DATE: 11/28/2019 REFERRING PHYSICIAN: Ramana Cason MD ADMISSION DIAGNOSIS: Cervical disk disease and stenosis. CHIEF COMPLAINT: Preoperative medical risk stratification. HISTORY OF PRESENT ILLNESS: This is a pleasant 79-year-old male, and he has had trouble with his neck for about 8 months. He has right shoulder and left shoulder symptoms as well. He has some numbness and also decreased mobility. The pain is occasionally severe and worse with activity. These symptoms have failed to respond to conservative measures. The patient saw Dr. Cason and was deemed a good candidate for a posterior cervical fusion procedure. This is a preoperative medical evaluation at the request of Dr. Cason for the above-named procedure. Please note that the patient does well with anesthesia. His chronic medical conditions including coronary artery dise (more content not included)... 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 Posterior cervical fusion. Dr. Cason. Plan Stable medically POD #1. I reviewed the labs today. EBL = 50 Deep Vein Thrombosis prophylaxis per surgery team. Please follow the 2012 ACCP guidelines. He was on aspirin and Xarelto preoperatively. I ordered all of the home medications for the floor. I also ordered the pain regimen which included IV Dilaudid. The regimen will also include oral Tylenol scheduled and as needed oxycodone and flexeril. He was on gabapentin preoperatively. Pain is well controlled today. CAD(I25.10) - Will start home medications, metoprolol and will order telemetry, serial cardiac enzymes and EKG's. He was on aspirin and Xarelto as above. ECG read independently and is unchanged. Telemetry reviewed and troponins are negativ (more content not included)... Diagnosis Ischemic foot- Primary PAD (peripheral artery disease) (HCC) Unspecified peripheral vascular disease Critical lower limb ischemia Unspecified circulatory system disorder Coronary artery disease involving coronary bypass graft of [place] heart without angina pectoris Hypercholesteremia Pure hypercholesterolemia Essential hypertension Unspecified essential hypertension Class 1 obesity with body mass index (BMI) of 31.0 to 31.9 in adult Pain of left lower extremity Diagnosis Critical lower limb ischemia- Primary Unspecified circulatory system disorder Gangrene (HCC) Gangrene PVD (peripheral vascular disease) (HCC) Unspecified peripheral vascular disease Left foot pain Pain in soft tissues of limb Diagnosis Critical lower limb ischemia Unspecified circulatory system disorder Diagnosis Gangrene (HCC)- Primary Gangrene PVD (peripheral vascular disease) ([facility]) Unspecified peripheral vascular disease Left foot pain Pain in soft tissues of limb Critical lower limb ischemia Unspecified circulatory system disorder Ulcer of toe of left foot, with necrosis of bone ([facility]) Diagnosis Acute post-operative pain- Primary Gangrene of left foot (HCC) Diagnosis Gangrene (HCC)- Primary Gangrene 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 (HCC) PVD (peripheral vascular disease) ([facility]) Unspecified peripheral vascular disease Lower extremity edema Edema 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, left Diagnosis 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 ([facility]) S/P bypass graft of extremity Diagnosis Referred otalgia of right ear- Primary Bilateral temporomandibular joint pain Diagnosis Bilateral carotid artery stenosis Occlusion and stenosis of carotid artery without mention of cerebral infarction Diagnosis Atherosclerosis of [place] arteries of the extremities with ulceration ([facility]) S/P bypass graft of extremity Diagnosis Atherosclerosis of [place] arteries of the extremities with ulceration ([facility]) S/P bypass graft of extremity Diagnosis Pain of left lower extremity Diagnosis S/P bypass graft of extremity PAD (peripheral artery disease) ([facility]) Unspecified peripheral vascular disease Atherosclerosis of [place] arteries of the extremities with ulceration ([facility]) Diagnosis Bilateral carotid artery stenosis Occlusion and stenosis of carotid artery without mention of cerebral infarction Diagnosis Atherosclerosis of [place] arteries of the extremities with ulceration ([facility]) Diagnosis 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 ([facility])- Primary Gangrene ([facility]) Gangrene PVD (peripheral vascular disease) ([facility]) Unspecified peripheral vascular disease 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, left Lower extremity edema Edema Diagnosis Gangrene of left foot ([facility])- Primary Critical lower limb ischemia Unspecified circulatory system disorder Diagnosis Atherosclerosis of [place] arteries of the extremities with ulceration ([facility]) Diagnosis Critical lower limb ischemia- Primary Unspecified circulatory system disorder Diagnosis Atherosclerosis of [place] artery of left lower extremity with rest pain ([facility]) S/P bypass graft of extremity Instructions * Patient Instructions* Lori Velez RN - 09/20/2018 2:[address] Sarabia has suggested a light RIO wrap to your left upper calf and lower thigh where the swelling is. Dr. Sarabia is also suggesting a warm compress or ice, whichever feels better. Keep the ice or warmth away from the incision line. Home Health to change dressings daily. X-rays were taken of your left ankle and foot after your visit today. Blood work was also obtained.You will be contacted if any changes to your treatment need to made. Otherwise, the results will bereviewed at your next appointment. Dr. Mann has also written for additional doxycycline. Please pick this up from your pharmacy. Wound Care Instructions: Wound location: Left foot Clean with mild soap and water or saline. Do not soak your wound or rub too hard.Gently pat dry before applying a clean dressing. May not shower Apply adaptic to dorsal foot Apply Betadine. Apply a thin layer to the wound. Please also apply betadine in between toes. Avoid getting on skin around the wound. Cover with dry dressing Change dressing every day(s). May reinforce or change gauze sooner if it becomes soiled or saturated. Watch for bleeding. If your wound continues to bleed after your appointment, apply direct pressure to the wound with a clean cloth or dressing for 10-20 minutes. If the bleeding does not stop, call [facility] at [phone] or go to the Emergency Room. Signs/Symptoms of infection: If you have any fever, chills, nausea, vomiting or increased odor, drainage, pain or redness to thewound, call [facility] at [phone]. If after hours, contactyour family physician or go to the Emergency Room. Edema Control Instructions: Elevate legs above the level of your heart whenever you are sitting. Avoid standing for long periods and do not sit with your legs dangling. Diet: Increase the lean protein in your diet. Foods high in protein are lean cuts of meat, fish, dairy foods, peanut butter and eggs. Limit your salt/sodium. Choose fresh fruits, vegetables and lean cuts of meat. Do not add salt to food during or after cooking. Season food with herbs and spices instead of salt. Avoid salty snacks, fast foods, deli meats and pre- packaged foods. Read food labels carefully. Tobacco Use: No smoking or tobacco products because they can slow or even stop wound healing. Return Appointment: Should you experience any significant changes in your wound(s) or have any questions regarding your home care instructions please contact [facility] at [phone]. If after hours, contact your primary care physician or go to the hospital emergency room. Please call 24 hours prior to your scheduled appointment if you need to cancel or reschedule. in this encounter* Patient Instructions* Radha Parker RN - 10/04/2018 1:14 PM EST You are being admitted to [facility] for surgery possibly Monday. Go to [facility]. in this encounter* Patient Instructions* Maia Duvall RN - 10/18/2018 3:40 PM EST LEAVE DRESSINGS IN PLACE UNTIL NEXT CLINIC VISIT. DRESSING CHANGED BY DR MANN ONLY!!! PATIENT MAY BE DISCHARGED FROM FACILITY AND RETURN HOME PER DR MANN. Edema Control Instructions: Elevate legs above the level of your heart whenever you are sitting. Avoid standing for long periods and do not sit with your legs dangling. Watch for bleeding. If your wound continues to bleed after your appointment, apply direct pressure to the wound with a clean cloth or dressing for 10-20 minutes. If the bleeding does not stop, call [facility] at [phone] or go to the Emergency Room. Signs/Symptoms of infection: If you have any fever, chills, nausea, vomiting or increased odor, drainage, pain or redness to thewound, call [facility] at [phone]. If after hours, contactyour family physician or go to the Emergency Room. Diet: Increase the lean protein in your diet. Foods high in protein are lean cuts of meat, fish, dairy foods, peanut butter and eggs. Limit your salt/sodium. Choose fresh fruits, vegetables and lean cuts of meat. Do not add salt to food during or after cooking. Season food with herbs and spices instead of salt. Avoid salty snacks, fast foods, deli meats and pre- packaged foods. Read food labels carefully. Tobacco Use: No smoking or tobacco products because they can slow or even stop wound healing. Return Appointment: Should you experience any significant changes in your wound(s) or have any questions regarding your home care instructions please contact [facility] at [phone]. If after hours, contact your primary care physician or go to the hospital emergency room. Please call 24 hours prior to your scheduled appointment if you need to cancel or reschedule. in this encounter* Patient Instructions* Lori Velez RN - 10/25/2018 4:24 PM EST LEAVE DRESSINGS IN PLACE UNTIL NEXT CLINIC VISIT. DRESSING CHANGED BY DR MANN ONLY!!! Edema Control Instructions: Elevate legs above the level of your heart whenever you are sitting. Avoid standing for long periods and do not sit with your legs dangling. Watch for bleeding. If your wound continues to bleed after your appointment, apply direct pressure to the wound with a clean cloth or dressing for 10-20 minutes. If the bleeding does not stop, call [facility] at [phone] or go to the Emergency Room. Signs/Symptoms of infection: If you have any fever, chills, nausea, vomiting or increased odor, drainage, pain or redness to thewound, call [facility] [facility] at [phone]. If after hours, contactyour family physician or go to the Emergency Room. Diet: Increase the lean protein in your diet. Foods high in protein are lean cuts of meat, fish, dairy foods, peanut butter and eggs. Limit your salt/sodium. Choose fresh fruits, vegetables and lean cuts of meat. Do not add salt to food during or after cooking. Season food with herbs and spices instead of salt. Avoid salty snacks, fast foods, deli meats and pre- packaged foods. Read food labels carefully. Tobacco Use: No smoking or tobacco products because they can slow or even stop wound healing. Return Appointment: Should you experience any significant changes in your wound(s) or have any questions regarding your home care instructions please contact [facility] at [phone]. If after hours, contact your primary care physician or go to the hospital emergency room. Please call 24 hours prior to your scheduled appointment if you need to cancel or reschedule. in this encounter Procedure Findings Note Patient: TRISTIN POWELL MRN: [id number] Age: 79 years Sex: Male : 1940 Associated Diagnoses: None Author: Nabor Samaniego MD Supervising Physician Comments Documentation By: Consulting Physician. Subjective Subjective: Patient participated in the evaluation: Yes. Nausea: not present. Vomiting: not present. Pain: acceptable pain control. Objective Objective: Vital Signs: Last Charted Vital Signs Temperature: 96.8 (11/27 10:44) Pulse: 81 (11/27 10:44) Respiration: 16 (11/27 10:44) BP: 138/77 (11/27 10:44) Pulse Ox: 97 (11/27 10:44) Oxygen Delivery: Nasal cannula (11/27 10:19) O2 Device Flow: Pain Score: 9 (11/27 10:19) . Mental Status: alert and oriented. Postoperative hydration: adequate. Assessment Assessment: Post anesthetic condition: no anesthetic complications. Airway patent: yes. Plan Plan: Postanesthesia Plan: post anesthetic surveillance concluded. Note DICTATED BY:RAMANA CASON MD SERVICE DATE:11/28/2019 PREOPERATIVE DIAGNOSES: 1. Cervical stenosis. 2. Cervical radiculopathy. POSTOPERATIVE DIAGNOSES: 1. Cervical stenosis. 2. Cervical radiculopathy. FINDINGS: The patient had moderate foraminal stenosis bilaterally at C3-4, C4-5 and C5-6. In addition to this, we did monitor continuous EMG as well as SSEP and MEP. These were stable throughout the case. There was no motors able to be elucidated in the lower extremities presurgical or postsurgical. The upper extremities remained stable throughout. PROCEDURES: 1. Posterior cervical laminectomy C3-4, C4-5, C5-6 with bilateral partial facetectomies and foraminotomies. 2. Posterolateral fusion C3 to C6. 3. Posterior segmental instrumentation with Biomet Lineum instrumentation, C3, C4, C5 and C6 bilaterally. 4. Insertion of morcellized autograft for spinal fusion. SURGEON: Ramana Cason MD IRS AGENT: LEONARDA Selby ANESTHESIA: General. SPECIMENS: There were no specimens removed. COMPLICA (more content not included)... Note CLINICAL SUMMARY Please take this summary document to your follow up appointments. [facility] 11/29/19 11:09 [address] [facility], [place]. [address] PATIENT INFORMATION Name: TRISTIN POWELL Address: [address] [address] Age: 79 Years Phone: [phone] : 1940 12:00 MRN: [id number] Sex: Male Race: White Ethnicity: Not Hispan/Lat Admitted From: Clinic or [facility] Medical Service: Orthopedic Surgery Nurse Unit/Bed: (UT) 2N 0208-01 Admit Date: 11/28/2019 05:01 PCP: Flash Lovelace MD PHYSICIANS INVOLVED WITH CARE Attending Physicians: Ramana Cason MD - Orthopaedic Surg Admitting Physician: Ramana Cason MD Orthopaedic Surg Primary Care Physician:Flash Lovelace MD,[facility], - Consults: I[place] - Internal Medicine Problems Active Neck pain PVD (peripheral vascula (more content not included)... Note CONSULTATION DICTATED BY: DO MOI DAVIS MD DATE OF SERVICE: 11/12/2019 NAME: TRISTIN POWELL DATE OF : 1940 AMENDED TO CORRECT FIN NUMBER SURGERY DATE: 11/28/2019 REFERRING PHYSICIAN: Ramana Cason MD ADMISSION DIAGNOSIS: Cervical disk disease and stenosis. CHIEF COMPLAINT: Preoperative medical risk stratification. HISTORY OF PRESENT ILLNESS: This is a pleasant 79-year-old male, and he has had trouble with his neck for about 8 months. He has right shoulder and left shoulder symptoms as well. He has some numbness and also decreased mobility. The pain is occasionally severe and worse with activity. These symptoms have failed to respond to conservative measures. The patient saw Dr. Cason and was deemed a good candidate for a posterior cervical fusion procedure. This is a preoperative medical evaluation at the request of Dr. Cason for the above-named procedure. Please note that the patient does well with anesthesia. His chronic medical conditions including coronary artery dise (more content not included)... Note Patient: TRISTIN POWELL MRN: [id number] Age: 79 years Sex: Male : 1940 Associated Diagnoses: None Author: Jose C Davis MD Assessment Assessment Diagnosis: Osteoarthritis ([id number] M47.892, Working, Medical). Posterior cervical fusion. Dr. Cason. Plan Stable medically POD #1. I reviewed the labs today. EBL = 50 Deep Vein Thrombosis prophylaxis per surgery team. Please follow the 2012 ACCP guidelines. He was on aspirin and Xarelto preoperatively. I ordered all of the home medications for the floor. I also ordered the pain regimen which included IV Dilaudid. The regimen will also include oral Tylenol scheduled and as needed oxycodone and flexeril. He was on gabapentin preoperatively. Pain is well controlled today. CAD(I25.10) - Will start home medications, metoprolol and will order telemetry, serial cardiac enzymes and EKG's. He was on aspirin and Xarelto as above. ECG read independently and is unchanged. Telemetry reviewed and troponins are negativ (more content not included)... Chief Complaint and Reason for Visit Chief Complaint PAD Chief Complaint i70.213 Chief Complaint i70.213 l carotid bruit Chief Complaint PVD Peripheral vascular disease Chief Complaint PVD Peripheral vascular disease chest pain preoperative for non coronary cardiac s Chief Complaint Admit Date RT foot pain, swell, with sore February 11:20am Chief Complaint Admit Date RT foot pain, swell, with sore February 11:20am PAD w/Claudication, Non Heeling Wound Ju ly 2024 12:29pm Reason for Visit Admit Date Peripheral vascular disease March 11, 2 025 11:20am Additional Source Comments (unrecognized sect ion and content) No Status Records FoundNo Status Records FoundNo Status Records FoundNo Status Records FoundNo Status Records FoundNo Status Records FoundNo Status Records FoundNo Status Records FoundNo Status Records FoundNo Status Records FoundNo Status Records FoundNo Status Records FoundNo Status Records FoundNo Status Records FoundNo Status Records FoundNo Status Records FoundNo Status Records FoundNo Status Records FoundNo Status Records FoundNo Status Records FoundNo Status Records Found INFORMATION SOURCE (unrecogn ized section and content) DATE CREATED AUTHOR 02/16/[address] [facility] DATE CREATED AUTHOR AUTHOR'S ORGANIZ ATION 09/07/2018 [facility] DATE CREATED AUTHOR AUTHOR'S ORGANIZ ATION 11/01/2018 [facility] DATE CREATED AUTHOR AUTHOR'S ORGANIZ ATION 11/02/2018 [facility] DATE CREATED AUTHOR AUTHOR'S ORGANIZ ATION 11/12/2018 [facility] DATE CREATED AUTHOR AUTHOR'S ORGANIZ ATION 05/28/2020 [facility] DATE CREATED AUTHOR AUTHOR'S ORGANIZ ATION 07/21/2021 [facility] DATE CREATED AUTHOR AUTHOR'S ORGANIZ ATION 01/02/2022 [facility] DATE CREATED AUTHOR AUTHOR'S ORGANIZ ATION 05/24/2022 [facility] DATE CREATED AUTHOR AUTHOR'S ORGANIZ ATION 10/29/2022 [facility] DATE CREATED AUTHOR AUTHOR'S ORGANIZ ATION 11/01/2022 [facility] DATE CREATED AUTHOR AUTHOR'S ORGANIZ ATION 12/08/2022 [facility] DATE CREATED AUTHOR AUTHOR'S ORGANIZ ATION 08/15/2023 [facility] DATE CREATED AUTHOR AUTHOR'S ORGANIZ ATION 12/31/2023 [facility] DATE CREATED AUTHOR AUTHOR'S ORGANIZ ATION 05/15/2024 [facility] DATE CREATED AUTHOR AUTHOR'S ORGANIZ ATION 12/22/2024 [facility] DATE CREATED AUTHOR AUTHOR'S ORGANIZ ATION 01/24/2025 [facility] DATE CREATED AUTHOR AUTHOR'S ORGANIZ ATION 03/26/2025 [facility] DATE CREATED AUTHOR AUTHOR'S ORGANIZ ATION 04/05/2025 [facility] DATE CREATED AUTHOR AUTHOR'S ORGANIZ ATION 04/12/2025 [facility] DATE CREATED AUTHOR AUTHOR'S ORGANIZ ATION 04/15/2025 [facility] dical Specialists EPIC Reason for Visit (unrecogniz ed section and content) Reason Comments Blood Clot Status Reason Specialty Diagnoses / Procedures Referre d By Contact Referred To Contact Diagnoses LLE claudication Procedures Angio Lower Extremity Reason Comments Wound Check Status Reason Specialty Diagnoses / Procedures Referre d By Contact Referred To Contact Diagnoses left foot gangrenous osteomyolitis Status Reason Specialty Diagnoses / Procedures Referred By Contact Referred To Contact Pending Review Cardiology Diagnoses 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) S/P bypass graft of extremity Procedures US Doppler ankle/brachial index Segmental doppler lower extremity arterial Mohsen Sarabia MD [address] [place], [place] [address] [place] [address] Reason Comments Cerumen Impaction Status Reason Specialty Diagnoses / Procedures Referred By Contact Referred To Contact Pending Review Cardiology Diagnoses Bilateral carotid artery stenosis Procedures Carotid Duplex Mohsen Sarabia MD [address] [place], [place] [address] [place] [address] Reason Comments Follow-up S/P PERONEAL- FEMORA L BYPASS 09/07/18 Status Reason Specialty Diagnoses / Procedures Referre d By Contact Referred To Contact Closed Radiology Diagnoses S/P bypass graft of extremity PAD (peripheral artery disease) (HCC) Atherosclerosis of [place] arteries of the extremities with ulceration (HCC) Procedures CT Angiogram Abdominal Aorta With Lower Extremity Mohsen Sarabia MD [address] [facility] [address] [place] [address] Status Reason Specialty Diagnoses / Procedures Referred By Contact Referred To Contact Closed Cardiology Diagnoses Bilateral carotid artery stenosis Procedures Carotid Duplex [facility] [address] [place] [address] Status Reason Specialty Diagnoses / Procedures Referre d By Contact Referred To Contact Closed Cardiology Diagnoses Atherosclerosis of [place] arteries of the extremities with ulceration (HCC) Procedures Ultrasound ankle / brachial indices extremity complete Mohsen Sarabia MD [address] [facility] [address] [place] [address] Reason Comments Follow-up Fem-Peron. bypass gr aft 09/09 Reason Comments Follow-up 6mo per-fem bypass g raft Status Reason Specialty Diagnoses / Procedures Referred By Contact Referred To Contact Pending Review Cardiology Diagnoses Atherosclerosis of [place] artery of left lower extremity with rest pain (HCC) S/P bypass graft of extremity Procedures Ultrasound duplex arterial leg left Mohsen Sarabia MD [address] [place], [place] [address] [facility] [address] [place] [id number] Reason Comments Post Op Visit Specialty Diagnoses / Procedures Referred By Contac t Referred To Contact Diagnoses Pain in prosthetic joint, subsequent encounter Procedures XR HIP WITH PELVIS RIGHT Dashawn Silvestre MD [address] [place] [address] Referral ID Status Reason Start Date Expiration Date V isits Requested Visits Authorized [id number] New Request 11/19/2021 12/14/2022 1 1 Reason Comments Skin Lesion Specialty Diagnoses / Procedures Referred By Contac t Referred To Contact Diagnoses Hx of total hip arthroplasty, right Procedures XR HIP WITH PELVIS RIGHT Dashawn Silvestre MD [address] [place] [address] Referral ID Status Reason Start Date Expiration Date V isits Requested Visits Authorized [id number] New Request 01/05/2022 01/30/2023 1 1 Reason Comments Pain Condition Update Reason Comments Leg Swelling Leg Pain Nausea Specialty Diagnoses / Procedures Referred By Contac t Referred To Contact Diagnoses Cellulitis Referral ID Status Reason Start Date Expiration Date Visits Re quested Visits Authorized [id number] 1 1 Reason Comments Consult Lung nodule and CT f /u Specialty Diagnoses / Procedures Referred By Contac t Referred To Contact Pulmonary Disease / Pulmonology Diagnoses Pulmonary nodule Muna Otto MD [address] [place] [address] [address] [place] [address] Carson Gallagher MD [address] [place] [id number] Referral ID Status Reason Start Date Expiration Date Visits Requested Visits Authorized [id number] Pending Review Specialty Services Required/Pat ient's Best Interest 01/20/2022 01/20/2023 1 1 Reason Comments Leg Swelling Specialty Diagnoses / Procedures Referred By Contac t Referred To Contact Diagnoses PAD (peripheral artery disease) ([facility]) Referral ID Status Reason Start Date Expiration Date Visits Re quested Visits Authorized [id number] 1 1 Specialty Diagnoses / Procedures Referred By Contac t Referred To Contact Diagnoses Hx of total hip arthroplasty, right Procedures XR HIP WITH PELVIS RIGHT Scar Ortega, HEALTH PHYSICIST-CABINET INSTALLER [address] [place] [address] Referral ID Status Reason Start Date Expiration Date V isits Requested Visits Authorized [id number] New Request 07/06/2022 07/31/2023 1 1 Reason Comments Follow-up Reason Onset Date Comments Medication Refill 08/30/2022 Reason Comments Foot Injury Shortness of Breath Specialty Diagnoses / Procedures Referred By Contac t Referred To Contact Diagnoses Peripheral edema Elevated troponin Community acquired pneumonia of left lower lobe of lung Referral ID Status Reason Start Date Expiration Date Visits Re quested Visits Authorized [id number] 1 1 Reason Comments Follow-up [id number] LT FEM-PERONEAL BYPASS 09/07/18, (YAMILE AND DUPLEX BYPASS GRAFT PRIOR TODAY). Patient complains of bilateral leg pain. Referral ID Status Reason Start Date Expiration Date V isits Requested Visits Authorized [id number] New Request 08/01/2023 08/25/2024 1 1 Reason Onset Date Comments Med Refill 08/06/2024 Reason Comments Cough Shortness of Breath Emesis Fever Reason Comments Hypertension Reason Comments Med Refill Calmoheptadine, Zolp idem Reason Comments Med Refill Oxycodone Reason Onset Date Comments Med Refill 10/18/2024 Reason Onset Date Comments Med Refill 11/26/2024 Reason Onset Date Comments Med Refill 01/02/2025 Reason Comments Follow-up Pain and R Toe color Change,S/P Peroneal Femoral Bypass Graft 09/07/2018 Reason Comments Leg Pain Specialty Diagnoses / Procedures Referred By Jason christie Referred To Contact Diagnoses Claudication Right leg pain PAD (peripheral artery disease) (HCC) Peripheral artery disease Referral ID Status Reason Start Date Expiration Date Visits Re quested Visits Authorized [id number] 1 1 Reason Comments Hospital Follow-up Reason Comments Follow-up FU - WOUND CHECK - s /p R FEM-TIB BYPASS, 03/17 - APPT GONZALEZ ZELAYA RN Reason Comments Foot Ulcer Ben Jiang MD - 09/07/2018 3:18 PM Miryam Mederos MD - 09/06/2018 9:17 AM Mirna Blackman MD - 09/04/2018 8:41 PM Ofe Best DPM - 10/08/2018 6:16 AM EST H&P Notes (unrecognized sect ion and content) INTERVAL HISTORY AND PHYSICAL Patient Name: Tristin Powell Admit Date: 1070905 MR #: [id number] : 1940 The H&P has been reviewed and the patient has been examined. I concur with the findings of the H&P. There are no significant changes. It is appropriate to proceed with the planned procedure. Ben Jiang MD 09/07/2018 3:18 PM VASCULAR SURGERY CONSULT NOTE 09/06/18 Patient Name: Tristin Powell : 1940 MR #: [id number] Admit Date: 1070905 ----- Nicolas Addendum As below, 78 y.o. male with a h/o PAD, HTN, HLD, CAD s/p cardiac stent (x7, 3667-0530), CABG (x3vv, 2017; L SVH), L ankle ORIF who p/w acute on chronic critical limb ischemia and claudication. Patient states he has been having claudication symptoms in bilateral lower extremities for the past 2-3 years. Patient states that although he has been active the past several months, his symptoms have progressively worsened. In June, the patient visited a php developer to evaluate his left foot, in which he had noted some decreased sensation, increased pain, and occasional cyanosis. No intervention conducted at the time, however the patient presented to [facility] in mid July for acutely worsened left lower extremity pain and underwent angioplasty with left superficial femoral artery and popliteal artery stent placement 07/30; he was started on Xarelto at this time. The patient states that his pain never improved after placement of the stent, in fact he reports daily rest pain since then. Over the past month the patient has been unable to ambulate more than a few steps with the help of a walker, and has noticed worsening sensory and motor function. For the past 1 week, the patient reports his left great toe has been consistently cyanotic. On exam, the patient is able to slightly move his toes and can weakly dorsi and plantar flex his left ankle, although the range of motion is limited secondary to prior surgery. His left foot is cool and lacks sensation to light touch distal to the midfoot. Poor capillary refill, and (-) Doppler signals in DP/PT. The patient has a palpable popliteal pulse on the left. Dopplerable signals in the right DP and PT. Angiogram without intervention conducted by cardiology yesterday, with the finding of occlusion of the popliteal stent; retrograde fill demonstrates probable patent lumen of tibioperoneal trunk, however this is without antegrade flow. Mapping demonstrates adequate right saphenous vein. Will discuss the utility of a femoral tibial bypass. Will discuss with Dr. aSrabia. Miryam Rincon MD PGY-2 Surgery [phone] After 5pm and on Weekends, please page [phone] (Surgery Audiometrist distribution designer) ----- Assessment and Plan: Tristin Powell is a 78 y.o. male with a PMH of PVD s/p LLE angio with stent placement 08/09, prostate cancer, PVD, CAD, HTN and a PSH of L ankle ORIF and thriple CABG in october 2016 with L saphenous vein harvested who presented to [facility] 09/04/2018 as a transfer from [place] for second opinion regarding left lower extremity pain and discoloration Chronic LLE ischemia - Patient underwent LLE angiogram with popliteal ballooning and stent 08/09/2018 in [place], sent on aspirin and xarelto - Angiography 09/05/18 showed Infrapopliteal Artery Stenosis Left , severe ASPVD with occluded stent. No reasonable endovascular options. - STAT vein mapping bilateral LE ordered - Will obtain and review angio images with Dr. Sarabia to assess possibility of bypass based on distal target Chief Complaint/Reason for Visit: LLE pain History of Present Illness: Tristin Powell is a 78 y.o. male with history of PAD, CAD, prostate cancer presents as a transfer from [place] for concerns for left lower extremity pain and discoloration that has progressivley worsened. He has had pain and claudication symptoms for years which prompted him to to be seen 08/09 were he had ballooning and stent placement to left popliteal. He represented 1/3 with increased LLE pain that was never really helped by the stent. Pain doesn't allow him sleep. While at the [facility] he was planned to undego intervention the day of transfer but requested [facility] transfer for second opinion. Review of Systems: The following system(s) were reviewed. Pertinent positive and negative findings are noted in the HPI. [x] Const [x] Eyes [x] ENT [x] Resp [x] CV [x] GI [x] [] Neuro [x] Musc [x] Skin [] Psych [x] Endo [x] Allergy [x] Heme/Lymph History: Past Medical History: Diagnosis Date Avascular necrosis of bone of hip (HCC) Claudication (HCC) Herpes zoster Hyperlipidemia Hypertension Prostate cancer (HCC) Vascular disease Past Surgical History: Procedure Laterality Date ANKLE SURGERY Left CARDIAC SURGERY STENT PLACEMENT Family History Problem Relation Age of Onset Prostate cancer Brother Social History Social History Marital status: Spouse name: N/A Number of children: N/A Years of education: N/A Occupational History Not on file. Social History Main Topics Smoking status: Never Smoker Smokeless tobacco: Never Used Alcohol use No Drug use: No Sexual activity: Not on file Other Topics Concern Not on file Social History Narrative No narrative on file Allergy Information: I have reviewed the patient's allergies. Patient has no known allergies. Home Medications: Outpatient Prescriptions as of 09/06/2018 Medication Sig gabapentin (NEURONTIN) 100 MG capsule Take 300 mg by mouth 3 (three) times a day . XARELTO 15 mg Tab take 2 tablets by mouth once daily for 3 weeks Inpatient Medications: Scheduled: aspirin 81 mg Oral Daily aspirin 162 mg Oral Daily atorvastatin 40 mg Oral Nightly clopidogrel 75 mg Oral Daily docusate sodium 100 mg Oral Daily gabapentin 300 mg Oral Q12H SADIA metoprolol succinate 50 mg Oral Daily polyethylene glycol 17 g Oral Daily senna-docusate 1 tablet Oral BID Continuous: heparin infusion (weight based dosing) Stopped (09/05/18 1542) sodium chloride 0.9 % 20 mL/hr (09/06/18 0029) PRN:acetaminophen, atropine, bisacodyl, HYDROmorphone, nalOXone AND Notify physician AND naloxone, nitroGLYCERIN, ondansetron OR ondansetron, ondansetron OR ondansetron, oxyCODONE, prochlorperazine (COMPAZINE) injection, sodium chloride 0.9% Physical Examination: Vital Signs: BP 136/68 (BP Location: Left arm, Patient Position: Sitting) Pulse 91 Temp 98.5 F (36.9 C) (Oral) Resp 16 Ht 6' 2 Wt 111.6 kg (246 lb) SpO2 95% BMI 31.58 kg/m General: awake and alert, no acute distress Head: normocephalic, atraumatic Eyes: no scleral icterus, pupils equal and round Neck: trachea midline, soft Cardiovascular: hemodynamically stable Pulmonary: nonlabored breathing, equal chest rise Abdomen: soft, non-tender, non-distended, no peritoneal signs Extremities: cool, cyanotic, and mottled L foot. No DP or PT pulse signals on L. Palpable popliteal pulse on the L. RLE with dopplerable DP and PT Skin: warm, dry and intact Neurological: Decreased motor function to L foot and ankle. Loss of sensation midfoot down on the L Laboratory and Additional Data Reviewed: Lab Results Component Value Date WBC 7.03 09/06/2018 HGB 10.7 (L) 09/06/2018 HCT 32.0 (L) 09/06/2018 MCV 89.4 09/06/2018 PLT 232 09/06/2018 Lab Results Component Value Date GLUCOSE 98 09/06/2018 CALCIUM 9.5 09/06/2018 NA 137 09/06/2018 K 4.2 09/06/2018 CL 101 09/06/2018 BUN 9 09/06/2018 CREATININE 0.68 (L) 09/06/2018 No results found for: ALT, AST, GGT, ALKPHOS, BILITOT No results found for: INR, PROTIME Imaging Reviewed: Cardiac Catheterization Final Result Ultrasound duplex arterial leg left Final Result XR Comparison Import Final Result Saphenous vein mapping, bilateral (Results Pending) Cardiac Catheterization Result Date: 09/05/2018 Patient Name: TRISTIN POWELL Date of : 1940 Procedure Date: 09/05/2018 Physician(s): Ben Hahn MD Cath #: [id number] Ref. Physician: PROCEDURE(S) PERFORMED: Ultrasound- guided vascular access Aortogram: Abdominal with runoff-bilateral Peripheral Angiography Lower Extremity Angiogram - Left Clinical History: Prior CABG: Yes Peripheral Arterial Disease: Yes, , with prior peripheral CMO & PRESIDENT. Dyslipidemia: Yes Hypertension: Yes Pre-OP Diagnosis/Indication: [place] Class/Limb Ischemia: 4 - Ischemic rest pain ASA status unchanged immediately prior to sedation administration. Heart, lungs, and airway assessed prior to sedation. The risks, benefits, and side effects related to alternative treatment options and the risks related to not receiving the proposed interventions and care were discussed with the patient. Following informed consent, the patient was brought to the procedure room in the fasting state. bilateral groins was prepped and draped in a sterile fashion. Local anesthesia was attained with 2% Lidocaine to the Right groin region. Using standard technique, sheath(s) were placed in the following site(s): exchanged into the right femoral artery - 6F 45cm Flexor Aashish 1 Sheath Catheters were advanced using standard guide wire technique. Multiple angiographic pictures were taken and appropriate pressures obtained. Hemodynamics: Time AIR REST AO 142/52 (86) SA 14:36:59 After review of the angiography and assurance of the patient's stability, the catheter was withdrawn from the sheath and Closure device placed by - Dr. 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 No reasonable endovascular options. PERIPHERAL RECOMMENDATIONS: Surgical procedure - tibial bypass vs major amputation COMMENTS: No Complications ____ Equipment: Sheath(s) [facility] 5F 10CM PINNACLE SHEATH Monitoring Division 6F 45CM .038 FLEXOR CHECKFLO ANSEL1 SHEATH Wire(s) [employer] .035 X 150CM FIXED J WIRE Catheter(s) [employer] 5F MP TEMPO AQUA CATHETER Other Monitoring Division .035 CXI ANGLED SUPPORT CATHETERS SHER VASCULAR 6F PROGLIDE CLOSURE Peripheral Angiography: Access site: Femoral Right Retrograde arterial with ultrasound guidance Non Selective: Aorta with ilio-fem runoff Selective: Tibioperoneal artery, retrograde - left See Nursing Notes for further details Signed By Ben Hahn A MD On 09/05/2018 3:50:45 PM Hiltonia, Ben Huerta MD ____ Ultrasound Duplex Arterial Leg Left Result Date: 09/05/2018 Non-Invasive Vascular Patient: SHERRY Bazan [facility] Rec#: [id number] (Age): 1940(78y) Study Date: 09/05/2018 Room#: G93 Type: Inpatient Sex: M Reading: Peirce Moreau DO, RPVI Referring: LEVY Slinger Sequins: Rima Celestin RDCS, RVT Slinger Sequins: Deena Pelayo RDCS RVT Procedure Info: [id number] Study Quality: Lower Arterial Duplex: adequate Diagnosis: I73.9 Peripheral vascular disease, unspecified Lower Arterial Duplex Conclusions Occluded stent noted in the left distal superficial femoral artery and popliteal artery. 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 Unable to adequately image runoff vessels due to patient's movement and intolerance to exam. Findings Left external iliac artery: calcific plaque present. Left common femoral artery: heterogenous plaque present. The procedure was explained to the patient. The patient voiced understanding. Measurements Left PSV Name Value Units EIA 83.2 cm/sec COMMERCIAL LOAN REVIEWER 95.6 cm/sec Profunda 85.5 cm/sec SFA - prox -25 cm/sec SFA - mid -67.2 cm/sec SFA - dist 58.2 cm/sec Popliteal - dist 0 cm/sec CMO & PRESIDENT 6.8 cm/sec Pre Stenosis #1 9.3 cm/sec Within Stenosis #1 67.2 cm/sec Distal Stenois #1 58.2 cm/sec Left Stent #1 Name Value Units Pre 58.2 cm/sec Orig/Prox 0 cm/sec Mid 0 cm/sec Dist 0 cm/sec Distal To 6.8 cm/sec Electronically signed at 09/05/2018 11:55:51 by: Pierce Moreau DO, RPVI Xr Comparison Import Result Date: 09/04/2018 This order has been auto-finalized and does not contain a result. Esau Alejandro MD General Surgery PGY-1 Pager [phone] *After 5pm, or on weekends, page [phone]* Associated attestation - Mohsen Sarabia MD - 09/06/2018 4:46 PM EST Patient seen and examined. I have personally reviewed all pertinent labs, radiological studies and records. I have personally examined the patient and agree with resident/ARTIFICIAL FLOWER MAKER/PA assessment and plan with the following additional findings. Pt has acute on chronic critical limb ischemia with severe rest pain and early tissue loss with purple discoloration of the toes with bullae and mottling of the entire foot. He has good vein in the right leg and a peroneal target. There is very poor run off past the ankle. I spoke with the patient and the family at length regarding bypass and the fact that it has a winnie risk of not working; however, he was very functional prior to this and he wants to try to save the foot. Bypass is his only option for limb salvage and he wishes to give it a try. We will add him on for tomorrow. Please resume heparin in the meantime. [facility] 09/04/18 Tristin Powell 1940 [id number] Assessment/Plan: Tristin Powell is a 78 y.o. male with a history of PVD s/p LLE angio with stent placement 08/09, prostate cancer, PVD, CAD, HTN who presented to [facility] 09/04/2018 as a transfer from [place] for second opinion regarding left lower extremity pain and discoloration that was present two days prior to admit there on 08/30. On admit his exam was notable for cool mottled left foot. He was admitted for further work up. Labs prior to transfer notable for Cr 0.7. 1. Claudication in the setting of PVD: s/p LLE angio 08/09, Discharged on xeralto. Returned to the [facility] with worsening pain and discoloration of his foot. Transferred for second opinion. Exam on admit notable for cool mottled foot. ASA and plavix continued. Heparin gtt continued. Edna Vasc consulted. 2. Acute Pain: in the setting of acute limb. IV/PO pain medications ordered. Vitals monitored. Bowel regimen as discussed. 3. Opioid constipation: No bowel movement since 08/28. On narcotics for acute pain. Bowel regimen titrated. 4. HTN: per history. Medications titrated. 5. CAD:s/p stents per history. ASA and BB continued 6. Non morbid obesity: BMI greater then 30, diet and exercise encouraged. 7. DVT Prophylaxis: Heparin gtt Current living situation: home alone Expected Disposition: TBD Estimated discharge date: TBD Chief Complaint: Left Leg Pain History of Present Illness: Tristin Powell is a 78 y.o. male with history of PAD s/p recent stent to the left lower extremity, CAD, prostate cancer presents as a transfer from [place] for concerns for left lower extremity pain and discoloration that was worse for two days. HE has had pain since 08/09 were he had left foot pain and had angioplasty with stent placement to left popliteal . Noted from RN at [facility] to have no No DP pulses by palpation or doppler. Positive popliteal pulse noted.blue/reddish color for the past 2 days . Pain doesn't allow him sleep. While at the [facility] he was planned to undego intervention the day of transfer but requested [facility] transfer for second opinion. [facility] records reviewed as above Patient currently reporting no pain at the moment he states the pain comes and goes rates at a 10 when it comes better with pain medication. No chest pain, dyspnea. No BM since the 08/28. Reports lower abdominal discomfort. No vomiting. ROS: 10 systems were reviewed and negative, except as noted above. Past Medical, Surgical, Social, Family History: Past Medical History: Diagnosis Date Avascular necrosis of bone of hip (HCC) Claudication (HCC) Herpes zoster Hyperlipidemia Hypertension Prostate cancer (HCC) Vascular disease Past Surgical History: Procedure Laterality Date ANKLE SURGERY Left CARDIAC SURGERY STENT PLACEMENT Social History Social History Marital status: Spouse name: N/A Number of children: N/A Years of education: N/A Occupational History Not on file. Social History Main Topics Smoking status: Never Smoker Smokeless tobacco: Never Used Alcohol use No Drug use: No Sexual activity: Not on file Other Topics Concern Not on file Social History Narrative No narrative on file Family History Problem Relation Age of Onset Prostate cancer Brother Home Medications: Tristin Powell Medication Instructions Prior to Surgery [id number] Printed on:09/04/188 Medication Information Take last dose on Take the morning of surgery Comment(s) aspirin 81 MG EC tablet Take 162 mg by mouth . atorvastatin (LIPITOR) 40 MG tablet Take by mouth . gabapentin (NEURONTIN) 100 MG capsule metoprolol succinate (TOPROL-XL) 50 MG 24 hr tablet Take 50 mg by mouth . rivaroxaban (XARELTO) 20 mg Tab Take 20 mg by mouth . XARELTO 15 mg Tab take 2 tablets by mouth once daily for 3 weeks Physical Exam: BP (!) 117/91 (BP Location: Right arm) Pulse 83 Temp 98.6 F (37 C) (Oral) Resp 12 Ht 6' 2 Wt 111.6 kg (246 lb) SpO2 94% BMI 31.58 kg/m General: NAD obese Eyes: EOMI ENT: neck supple Cardiovascular: Regular rate. Respiratory: Clear to auscultation Gastrointestinal: Soft, non tender Genitourinary: no suprapubic tenderness Musculoskeletal: No edema Skin: warm, dry left foot cool to touch unable to palpate pulse non tender to touch Neuro: Alert. Psych: Mood appropriate. Labs, Imaging, and Studies reviewed: Results from last 7 days Lab Units 09/04/180 WBC K/mcL 6.36 HGB g/dL 11.2* HCT % 33.3* PLT K/mcL 222 Invalid input(s): MAG LESVIA in this encounter INTERVAL HISTORY AND PHYSICAL Patient Name: Tristin Powell Admit Date: [id number] MR #: [id number] : 1940 The H&P has been reviewed and the patient has been examined. I concur with the findings of the H&P. There are no significant changes. It is appropriate to proceed with the planned procedure. Ofe Wood DPM 10/08/2018 6:16 AM Associated attestation - Flynn Mann DPM - 10/08/2018 7:08 AM EST The H&P has been reviewed and the patient has been examined. I concur with the findings of the H&P. There are no significant changes. It is appropriate to proceed with the procedure. Flynn Mann, DPM, FACFAS Electronically signed by the above physician 10/08/18 [facility] DAILY PROGRESS NOTE Assessment and Plan 78 y.o. male patient of Flash Lovelace MD with history of PAD, CAD and HTN that presented to [place] with need for left foot partial amputation. Left foot gangrene Plan for left midfoot amputation on 10/08/18 Management per podiatry Pre-op clearance Planned low risk podiatric procedure tentatively scheduled 10/08/18. He has known history of CAD with 3 vessel CABG in 2017 Denies typical angina with no active heart failure. METS > 4; RCRI = 1 Low risk patient for low risk procedure May proceed with his upcoming surgery with a low risk of perioperative cardiovascular complications with EKG and echocardiogram PVD LLE angiogram 09/05/18 with occluded stent, infrapopliteal stenosis, and severe ASPVD No enovascular options therefore s/p left fem to peroneal bypass 09/07/[address] Sarabia Continue plavix and statin ASA on hold for surgery CAD S/p 3 vessel bipass in 2017 Continue plavix, Statin and BB ASA on hold for surgery HTN Continue BB Insomnia Holding home Ambien Can start trazodone if needed Quality Measures DVT Prophylaxis: per primary Qureshi Catheter: none Disposition Discharge Location: TBD Estimated Discharge Date: TBD - surgery Monday Outpatient Testing: none Subjective Doing well. No complaints Review of Systems The following system(s) were reviewed: All other systems reviewed and negative, other than HPI. Objective BP 148/72 (BP Location: Left arm, Patient Position: Lying) Pulse 79 Temp 98.1 F (36.7 C) (Oral) Resp 16 Ht 6' 2 Wt 99.1 kg (218 lb 7.6 oz) SpO2 96% BMI 28.05 kg/m Physical Examination General Appearance: alert, cooperative, in no acute distress. HEENT: Head- normocephalic; Eyes- PERRLA, EOMI; Ears- external auditory canals clear, hearing intact; Nose- no nasal discharge; Throat- oropharynx normal Cardiovascular: regular rate and rhythm; normal S1, S2; no murmurs, rubs, clicks or gallops; no peripheral edema. Respiratory: lungs clear to auscultation; without wheezes, rales or rhonchi Abdomen: soft, non-tender, non-distended; positive bowel sounds Neurological: alert, oriented, normal speech; no focal findings or movement disorder noted Musculoskeletal: no significant deformity or tenderness to palpation Skin: normal coloration, texture and turgor; no lesions or eruptions Results/Medications Reviewed 10/07/18 11:56 AM Laboratory, Microbiology, Pathology, Radiology, Cardiology, Medications and Transcriptions Podiatry H&P Note Chief Complaint Left foot gangrene IMPRESSION & PLAN: Tristin Powell is a 78 y.o. male with PMHx PVD (s/p bypass), HTN, HLD, Triple bypass and prior stent placement in heart, Prostate cancer presents with Left forefoot gangrene with local infection and plans for midfoot amputation. -Patient evaluated at bedside. Dry gangrene, nothing of value to culture. Dressed with betadine soaked 4x4, dry 4x4, Kerlix. -Afebrile, labs reviewed. WBC 4.62, Hgb 11.3, Cr 0.92, glucose 94, albumin 3.5, CRP 12.5, ESR pending, HA1C -Nothing of value to culture, will begin empiric IV Vancomycin. Monitor local erythema -Radiographs pending -[facility] c'sed for medical management and preoperative clearance. -WBAT to LLE -DVT ppx lovenox. -Patient discussed with Dr. Mann who agrees with assessment and plan. Pt with mummification and dry gangrene of left forefoot, patient had bypass surgery of LLE at [place] in August. Pt with some local erythema will monitor response to Abx. Plan for OR on Monday (10/08/18) for left midfoot amputation. [facility] consulted for medical management. Patient will require preoperative risk stratification. Appreciate [facility] assistance. Further plan per Dr. Mann HISTORY OF PRESENT ILLNESS Tristin Powell is a 78 y.o. 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 Pt was seen by Dr. Mann at the wound care clinic earlier and was admitted for IV antibiotics and surgical intervention. Pt recently underwent bypass surgery at [facility] and has had improved blood flow and demarcation of gangrene since then. Pt does state that he has a cardiac history of triple bypass and stenting but has had no recent cardiac events, does follow with a warp tester. Pt denies any active lung disease. Pt states gangrene began about 2 months ago and has progressed to the point it is now. Pt denies any n/v/f/sob/cp/chills. No other pedal complaints. Review of Systems Denies fevers, chills, chest pain, shortness of breath, nausea, vomiting, hematemesis, diarrhea, constipation. Past Medical History: Diagnosis Date Avascular necrosis of bone of hip (HCC) Claudication (HCC) Herpes zoster Hyperlipidemia Hypertension Prostate cancer (HCC) Vascular disease Past Surgical History: Procedure Laterality Date ANKLE SURGERY Left BYPASS PERONEAL FEMORAL Right 09/07/2018 Procedure: BYPASS PERONEAL FEMORAL, RIGHT SAPHENOUS VEIN HARVEST, COMPLETION ANGIOGRAM; Surgeon: Mohsen Sarabia MD; Location: [facility] NEURO OR; Service: Cardiovascular CARDIAC CATHETERIZATION Left 09/05/2018 Procedure: Angio Lower Extremity; Surgeon: Ben Hahn MD; 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 Prior to Admission medications Medication Sig Start Date End Date Taking? Authorizing Provider aspirin 81 MG EC tablet Take 81 mg by mouth daily . Historical Provider, atorvastatin (LIPITOR) 40 MG tablet Take by mouth . Historical Provider, clopidogrel (PLAVIX) 75 mg tablet Take 1 (one) tablet (75 mg total) by mouth daily . 09/13/18 10/13/18 Rojelio Woody MD gabapentin (NEURONTIN) 400 MG capsule Take 1 (one) capsule (400 mg total) by mouth every 8 (eight) hours . 09/13/18 10/13/18 Rojelio Woody MD magnesium citrate solution Take 296 mL by mouth as needed (Take if no bowel movement for 2-3 days) . 09/13/18 Rojelio Woody MD metoprolol tartrate (LOPRESSOR) 50 MG tablet Take 50 mg by mouth 2 (two) times a day . Historical Provider, MD ondansetron (ZOFRAN) 4 MG tablet Take 1 (one) tablet (4 mg total) by mouth every 8 (eight) hours as needed for nausea . 09/13/18 09/20/18 Rojelio Woody MD senna-docusate (SENNA-S) 8.6-50 mg Take 2 (two) tablets by mouth 2 (two) times a day . 09/13/18 10/13/18 Rojelio Woody MD Allergies Allergies Allergen Reactions Oxycodone Anaphylaxis Patients states he is unaware of this allergy and is currently taking oxycodone with no adverse reactions Social History Socioeconomic History Marital status: Spouse name: Not on file Number of children: Not on file Years of education: Not on file Highest education level: Not on file Social Needs Financial resource strain: Not on file Food insecurity - worry: Not on file Food insecurity - inability: Not on file Transportation needs - medical: Not on file Transportation needs - non-medical: Not on file Occupational History Not on file Tobacco Use Smoking status: Never Smoker Smokeless tobacco: Never Used Substance and Sexual Activity Alcohol use: No Drug use: No Sexual activity: Not on file Other Topics Concern Not on file Social History Narrative Not on file Social History Tobacco Use Smoking Status Never Smoker Smokeless Tobacco Never Used Social History Substance and Sexual Activity Alcohol Use No Social History Substance and Sexual Activity Drug Use No Family History Problem Relation Age of Onset Prostate cancer Brother Vital Signs BP (!) 158/81 (BP Location: Left arm) Pulse 77 Temp 97.5 F (36.4 C) (Oral) Resp 15 Ht 6' 2 Wt 99.1 kg (218 lb 7.6 oz) BMI 28.05 kg/m Wt Readings from Last 25 Encounters: 10/04/18 99.1 kg (218 lb 7.6 oz) 09/20/18 107 kg (236 lb) 09/04/18 111.6 kg (246 lb) No intake or output data in the 24 hours ending 10/04/18 1705 PHYSICAL EXAM General: No acute distress, resting comfortably in bed. LE Physical Exam: VASCULAR: DP/PT pulses faintly palpable bilaterally. CFT immediate to RLE, absent 2/2 to gangrene LLE NEUROLOGICAL: Light touch sensation decreased Distal to Midfoot. DERMATOLOGICAL: Dry gangrene with mummification of entire forefoot (digits 1-5) extending to the level of the metatarsals. Demarcation appreciated proximal to the gangrene with fibro-granular base. Betadine dressing was in place, minimal drainage. No malodor appreciated. Mild erythema proximal to area of demarcation. No fluctuance, crepitus, proximal streaking. No open wounds, no erythema, no ecchymosis, no rashes to right lower extremity. MUSCULOSKELETAL: Muscle strength differed. Dry gangrene of left foot. LABS: Lab Results Component Value Date WBC 4.62 10/04/2018 HGB 11.3 (L) 10/04/2018 MCV 97.3 10/04/2018 PLT 248 10/04/2018 HGBA1C 4.7 10/04/2018 CRP 12.5 (H) 10/04/2018 ALBUMIN 3.5 10/04/2018 PREALBUMIN 16.7 (L) 09/20/2018 Lab Results Component Value Date GLUCOSE 94 10/04/2018 CALCIUM 9.3 10/04/2018 NA 141 10/04/2018 K 4.6 10/04/2018 CL 104 10/04/2018 BUN 12 10/04/2018 CREATININE 0.92 10/04/2018 XR Foot Left 3+ Views (Standard) (Results Pending) Associated attestation - Flynn Mann DPM - 10/04/2018 6:50 PM EST The patient was seen and evaluated at the bedside in clinic on 10-04-18, discussed with the resident. The note was reviewed and agree with the findings and the plan. [facility] consulted for medical management and clearance for anticipated left foot TMA and DEREK on Monday. Patient known to Dr. Sarabia, vascular surgery at [facility], and will follow with her next week after discharge. We will start IV antibiotics for soft tissue margin optimization for anticipated surgical endeavor on Monday. Consider I&D with amputation packed open with delayed closure later next week if soft tissue margins do not allow for closure of left TMA on Monday. The indications, risk/benefits, alternative treatments, potential complications, anticipated post-operative course were discussed in detail with the patient. No guarantees as to outcome were offered or implied. The patient understands and is in agreement with the plan. The patient will be followed post-operatively. Flynn Mann, SHIRLEY, FACFAS Electronically signed by the above physician 10/04/18 in this encounter Sakshi Gamboa LSW - 09/11/2018 4:19 PM Flynn Alvarez DPM - 09/10/2018 5:03 PM ESTChrystal Aguilar S - 09/10/2018 3:28 PM Marsha Leon, KAELYN - 09/10/2018 3:25 PM EST Consult Notes (unrecognized section and content) Associated Order(s): IP CONSULT TO CARE MANAGEMENT COMPLEX DISCHARGE Date: 09/11/2018 Time: 4:19 PM Patient Name: Tristin Powell Date of : 1940 Sex: Male SIGN PAINTER HELPER met w/pt and daughter at bedside to discuss d/c recommendations. Daughter reports pt will be going home with 24 hour care from his 7 children. Pt requested a SNF list and will keep his options open. SIGN PAINTER HELPER provided list and pt will notify SIGN PAINTER HELPER with choice of SNF or home tomorrow. SIGN PAINTER HELPER notified pt that she will not be in tomorrow but another SW will and can assist. Discharge Plan Shared UM/CC and RN Source of Information: Patient, Family Living Arrangements: Family members Support Systems: Family members Functional Status: Minimum assistance Type of Residence: Private residence Prior to Admission Home Care Services: No Current Home Equipment: Walker, Wheel chair, Cane Insurance Coverage for Prescriptions: Yes Potential for Readmission Potential for Readmission: No Associated Order(s): IP CONSULT TO PODIATRY Patient Name: Tristin Powell MR #: [id number] : 1940 Physicians: Flash Lovelace MD (Family); Dann Chairez, * (Referring) Chief complaint: Tristin Powell is a 78 y.o. male This patient presents for consultation for left lower extremity arterial insufficiency with a progressive gangrene and necrosis, left lower extremity. Patient has a complicated history with what he reports to being as several years of progressive ischemic disease lower extremity. He eventually underwent intervention in the [place], [place] area in June and July of 2018. Patient, patient's family present at bedside, both say that things deteriorated clinically after the recent intervention in June 2018 with stent placed at the left lower extremity at the popliteal distribution. Patient reports progressive discoloration and pain lower extremity. He did present for second opinion. He had angiogram with Dr. Hahn, which did show no endovascular options for repair of a stent occlusion at the left lower extremity. Patient underwent left lower extremity peroneal femoral bypass surgery with Dr. Sarabia of vascular surgery on 09/07/2018. Patient now has progressive gangrene changes to lower extremity with violaceous coloration left lower extremity. Patient reports tenderness with direct pressure, but otherwise rest pain appears to be improved per patient report. No systemic complaints at this time. No nausea, vomiting, fever, chills, or night sweats. We were consulted for evaluation of possible amputation level determined at the left lower extremity including digital and foot level. History: I have reviewed the patient's past medical history, past surgical history, family history, social history. Past Medical History: Diagnosis Date Avascular necrosis of bone of hip (HCC) Claudication (HCC) Herpes zoster Hyperlipidemia Hypertension Prostate cancer (HCC) Vascular disease Past Surgical History: Procedure Laterality Date ANKLE SURGERY Left BYPASS PERONEAL FEMORAL Right 09/07/2018 Procedure: BYPASS PERONEAL FEMORAL, RIGHT SAPHENOUS VEIN HARVEST, COMPLETION ANGIOGRAM; Surgeon: Mohsen Sarabia MD; Location: [facility] NEURO OR; Service: Cardiovascular CARDIAC CATHETERIZATION Left 09/05/2018 Procedure: Angio Lower Extremity; Surgeon: Ben Hahn MD; 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; Service: Cardiovascular CARDIAC SURGERY STENT PLACEMENT Family History Problem Relation Age of Onset Prostate cancer Brother Social History Socioeconomic History Marital status: Spouse name: Not on file Number of children: Not on file Years of education: Not on file Highest education level: Not on file Social Needs Financial resource strain: Not on file Food insecurity - worry: Not on file Food insecurity - inability: Not on file Transportation needs - medical: Not on file Transportation needs - non-medical: Not on file Occupational History Not on file Tobacco Use Smoking status: Never Smoker Smokeless tobacco: Never Used Substance and Sexual Activity Alcohol use: No Drug use: No Sexual activity: Not on file Other Topics Concern Not on file Social History Narrative Not on file Medications: I have reviewed the patient's medications. Scheduled Meds: aspirin 81 mg Oral Daily atorvastatin 40 mg Oral Nightly clopidogrel 75 mg Oral Daily docusate sodium 100 mg Oral Daily gabapentin 400 mg Oral Q8H SADIA metoprolol succinate 50 mg Oral Daily polyethylene glycol 17 g Oral Daily Allergy Information: I have reviewed the patient's allergies. Patient has no known allergies. Review of Systems: The following system(s) were reviewed and pertinent findings noted: Constitutional: negative Cardiovascular: positive for CLI and PAD left LE Integumentary: ulceration Musculoskeletal:negative Neurological: negative Labs: Lab Results Component Value Date WBC 7.34 09/10/2018 HGB 7.5 (L) 09/10/2018 HCT 22.0 (L) 09/10/2018 MCV 94.0 09/10/2018 PLT 234 09/10/2018 No results found for: [id number] results found for: SEDRATE No results found for: CRP Radiology: No foot and ankle films or MRI examination of lower extremity during this hospitalization. Physical Examination: Vital Signs: BP 143/66 (BP Location: Left arm, Patient Position: Lying) Pulse 93 Temp 98.9 F (37.2 C) (Oral) Resp 16 Ht 6' 2 Wt 111.6 kg (246 lb) SpO2 96% BMI 31.58 kg/m The patient is alert and oriented x3, in no acute distress. He is pleasant and conversive, seen at bedside with a 3 family members and friends. Lower extremities: Right side pedal pulses difficult to palpate but no acute cyanosis or gangrene of the right lower extremity. No acute vascular ischemic disease of the right lower extremity. Skin is atrophic and taut, shiny, right side. Left side has more progressive ischemic changes from the ankle distal. There is multiple well- healed incisions at the bilateral legs for target distribution at the calf and thigh. There is cyanosis and gangrene at the left midfoot to forefoot as well with just the earliest of mummification gangrene occurring at the distal aspect of the left great toe. This is not seen at the lesser digits at this time. There is a small bullous lesion measuring 2 cm x 1 cm at the left lateral 4th toe and 1 ruptured bullous lesion apparent with partial-thickness skin ulceration at 4 cm x 4 cm at the left dorsal midfoot but no other adjacent erythema or red streaking I. There is a little bit of erythema at the left lateral rear foot, but no other red streaking at this level. No fluctuance, crepitus, or abscess at this time. No focal warmth. Skin is cool to dry to touch. No wet gangrene at this point. Interdigital spaces not significantly macerated. No deep probing or tunneling ulcerations. No evidence for foreign body. No odor. There is tenderness with examination. Assessment and Plan: Patient Active Problem List Diagnosis SNOMED CT(R) Critical lower limb ischemia CRITICAL LOWER LIMB ISCHEMIA Coronary artery disease involving coronary bypass graft of [place] heart without angina pectoris ARTERIOSCLEROSIS OF CORONARY ARTERY BYPASS GRAFT Hypercholesteremia HYPERCHOLESTEROLEMIA Essential hypertension ESSENTIAL HYPERTENSION Class 1 obesity with body mass index (BMI) of 31.0 to 31.9 in adult OBESITY Pain of left lower extremity PAIN IN LEFT LOWER LIMB All treatments were discussed in detail with the patient and the patient's family today. I also discussed the case with the Cardiothoracic Service staff and resident. At this point we will observe for margin demarcation at the left lower extremity. There are still levels of undetermined cyanosis and gangrene at the left forefoot without specific demarcation to a full mummified gangrene versus revascularization at times actually allowing for some rejuvenation of epithelium at the distal ankle and proximal foot level. If margins allow for midfoot or forefoot level amputation, I will consider this once demarcation is more specific as seen clinically. Otherwise, in the meantime, consider surgical intervention more urgently if abscess or significant infection or leukocytosis should develop as a source of the foot. Otherwise, foot is stable for now despite pain management issues. Pain Management note reviewed. We will paint with topical Betadine to prevent progression from dry gangrene to wet gangrene and a drop of gauze for sterility and will follow loosely. Will follow as an inpatient. If patient establishes a stable criterion for discharge, then we will follow as an outpatient prior to any level of amputation. Flynn Mann DPM, FACFAS Electronically signed by the above physician 09/10/18 Physical Therapy PHYSICAL THERAPY EVALUATION NOTE Skilled Therapy Needs After Discharge Anticipate Resolution of Current Assessment Limitations Including: Mechanical Barriers Are Skilled Therapy Services Needed After Discharge: Yes Intensity of Skilled Therapy: Up to 5 days per week Anticipated Duration of Skilled Therapy: Duration 7 - 10 days DME Recommendation: Wheeled walker DME Rationale: Patient's condition creates an increased risk of safety hazard without recommended equipment Rehab Potential: Good, For goals Outcomes Measures Prior Function - Basic Mobility Raw Score: 24 Points Prior Function - Basic Mobility % Impaired: 0% functionally impaired AM-PAC - Basic Mobility Raw Score: 10 Points AM-PAC - Basic Mobility % Impaired: 71.92% functionally impaired Physical Therapy Assessment History: The following factors influence the patient's participation in the PT plan of care: Personal factors: limited baseline mobility, impulsive behavior, age and body habitus Environmental factors: steps to enter home and lives alone The following co-morbidities (from this admission or prior) influence the patient's participation in this plan of care: PVD with claudication, HTN, CAD, opioid constipation, non-morbid obesity. S/p peroneal-femoral bypass and R saphenous vein harvest 09/08. Number of History elements affecting this patient's PT plan of care: 3 or more Examination of Body Systems: The patient presents with impairments of strength, pain, functional endurance, balance, sensation, pain, activity tolerance, blood pressure regulation with activity, O2 saturation regulation with activity, heart rhythm, heart rate control with activity, foot/leg ulcer, sensation, active wound, tissue healing, skin integrity. These impairments result in limitations of gait, functional transfers, stair-climbing, safety, safety awareness and activity tolerance. These impairments result in restrictions of household mobility, community mobility and leisure activities. Number of Body Systems elements affecting this patient's PT plan of care: 4 or more Clinical Presentation: The patient's clinical presentation for this PT evaluation is evolving as evidenced by current PT documentation. Activity Tolerance Activity Tolerance: Tolerates 10 - 20 min activity with multiple rests Therapy Precautions Orthotic Devices: Yes Lower Extremity: Left(Rooke boot) Weight Bearing Status: WFL General Rehab Precautions: Fall risk Balance Sitting Balance - Static: Sits without support for more than 30 seconds Sitting Balance - Dynamic: Moves / returns trunkal midpoint 1-2 inches in multiple planes Standing Balance - Static: (modA x2 with WW) Standing Balance - Dynamic: Moves / returns trunkal midpoint 1-2 inches in multiple planes(ModA x2 with WW ) Bed Mobility Rolling: Mod, Two person assist Supine to Sit: Mod, 2 person assist Sit to Supine: Mod, 2 person assist Transfers Sit to Stand: Mod, Two person assist(x2 trials with FWW) Careers Counsellor: Wheeled walker, 2 people, Gait belt Gait/Locomotion Gait Assistance: Mod, Two person assist Assistive Device: Wheeled walker Distance: 2 Feet(side steps at EOB ) Pattern: Step to, Over reliance on upper extremities, Forward flexed(did not tolerate weight on LLE ) Exercise Home Living Type of Home: House Home Layout: Stairs to enter with rails, One level(1 john) Bathroom Shower/Tub: Tub/shower unit Bathroom Equipment: Grab bars in shower, Shower chair, Commode Home Equipment: Wheeled Walker, Wheelchair-manual, Wheelchair-electric, Cane(all equipment was 's, unsure of proper sizing ) Additional Comments: drives, manages own medications Prior Level of Function Level of [place]: Independent with ADLs and functional transfers, Independent with homemaking with ambulation Lives With: Alone 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) Comments: planning to provide 20/03 assist from 7 kids Past Medical History: Diagnosis Date Avascular necrosis of bone of hip (HCC) Claudication (HCC) Herpes zoster Hyperlipidemia Hypertension Prostate cancer (HCC) Vascular disease Past Surgical History: Procedure Laterality Date ANKLE SURGERY Left BYPASS PERONEAL FEMORAL Right 09/07/2018 Procedure: BYPASS PERONEAL FEMORAL, RIGHT SAPHENOUS VEIN HARVEST, COMPLETION ANGIOGRAM; Surgeon: Mohsen Sarabia MD; Location: [facility]UR[facility] OR; Service: Cardiovascular CARDIAC CATHETERIZATION Left 09/05/2018 Procedure: Angio Lower Extremity; Surgeon: Ben Hahn MD; 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; Service: Cardiovascular CARDIAC SURGERY STENT PLACEMENT For complete objective data, detailed plan of care and patient education refer to: PT EVALUATION flow sheet, PT TREATMENT flow sheet, patient Plan of Care, Plan of Care progress note, and Patient Education. This note stands as the current Discharge Summary upon patient discharge from the hospital or completion of Physical Therapy Plan of Care. Occupational Therapy OCCUPATIONAL THERAPY EVALUATION NOTE Skilled Therapy Needs After Discharge Anticipate Resolution of Current Assessment Limitations Including: Mechanical Barriers Are Skilled Therapy Services Needed After Discharge: Yes Intensity of Skilled Therapy: Up to 5 days per week Anticipated Duration of Skilled Therapy: Duration 10 - 30 days DME Recommendation: None Rehab Potential: Good, For goals Outcomes Measures Prior Function Daily Activity: Raw Score: 24 Prior Function Daily Activity % Impaired: 0% functionally impaired AM-PAC Daily Activity: Raw Score: 15 AM-PAC Daily Activity % Impaired: 56.46% functionally impaired Occupational Therapy Assessment The patient presents with musculoskeletal, vascular and integumentary impairment(s) in generalized debility left lower extremity which create performance deficits including strength, range of motion, balance, coordination, sensation, activity tolerance and pain, problem solving, sequencing, insight and safety These performance impairments limit participation in grooming, LE dressing, bathing, toileting, home management, job duties and functional mobility in the chosen occupational roles of premorbid level individual. The patient's co morbidities do affect patient performance in the above activities and roles. The patient's home setup is a geek squad manager and family/caregiver support is a geek squad manager for return to prior level of function. The patient's compliance is a geek squad manager and awareness of own capacity and performance is a barrier to return to prior level of function. During the assessment, minimal to moderate modification of task was required and several treatment options were identified in the plan of care. This consultation required expanded review of the medical and therapy history. Activity Tolerance Activity Tolerance: Tolerates 10 - 20 min activity with multiple rests Therapy Precautions Orthotic Devices: Yes Lower Extremity: Left(Rooke boot) Weight Bearing Status: WFL General Rehab Precautions: Fall risk Cognition Overall Cognitive Status: Within Functional Limits Arousal/Alertness: Appropriate responses to stimuli Orientation Level: Oriented X4, With cues(cues for exact date) Executive functioning: Insight, Sequencing, Planning / Organizing, Min impairment Safety Judgment: Decreased awareness of need for safety, Decreased awareness of need for assistance Problem Solving: Assistance required to identify errors made, Assistance required to generate solutions Attention: Attends to quiet environment Hearing Status: WFL Social Interaction: Cooperative, Appropriate Comments: pt follows commands appropriately. Pt daughter present in room throughout ADL/IADL Grooming : Stand by assistance LE Dressing: Dependent Bed Mobility Supine to Sit: Mod, 2 person assist Sit to Supine: Mod, 2 person assist Functional Transfers Sit to Stand: Mod, Two person assist(x2 trials with FWW) Bed to Chair Transfers: Mod, Two person assist(side steps toward HOB) Home Living Type of Home: House Home Layout: Stairs to enter with rails, One level(1 john) Bathroom Shower/Tub: Tub/shower unit Bathroom Equipment: Grab bars in shower, Shower chair, Commode Home Equipment: Wheeled Walker, Wheelchair-manual, Wheelchair-electric, Cane Additional Comments: drives, manages own medications Prior Level of Function Level of [place]: Independent with ADLs and functional transfers, Independent with homemaking with ambulation Lives With: Alone 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) Comments: planning to provide 20/03 assist from 7 kids Past Medical History: Diagnosis Date Avascular necrosis of bone of hip (HCC) Claudication (HCC) Herpes zoster Hyperlipidemia Hypertension Prostate cancer (HCC) Vascular disease Past Surgical History: Procedure Laterality Date ANKLE SURGERY Left BYPASS PERONEAL FEMORAL Right 09/07/2018 Procedure: BYPASS PERONEAL FEMORAL, RIGHT SAPHENOUS VEIN HARVEST, COMPLETION ANGIOGRAM; Surgeon: Mohsen Sarabia MD; Location: [facility]UR[facility] OR; Service: Cardiovascular CARDIAC CATHETERIZATION Left 09/05/2018 Procedure: Angio Lower Extremity; Surgeon: Ben Hahn MD; 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; Service: Cardiovascular CARDIAC SURGERY STENT PLACEMENT For complete objective data, detailed plan of care and patient education refer to: OT EVALUATION flow sheet, OT TREATMENT flow sheet, patient Plan of Care, Plan of Care progress note, and Patient Education. This note stands as the current Discharge Summary upon patient discharge from the hospital or completion of Occupational Therapy Plan of Care. Associated Order(s): IP CONSULT TO PAIN TEAM ANCILLARY Original consult done by Dr. Pang yesterday. Patient seen in follow up by CABINET INSTALLER. See progress note. Associated Order(s): IP CONSULT TO PAIN TEAM ANCILLARY CONSULT NOTE Patient Name: Tristin Powell Admit Date: 1070905 MR #: [id number] : 1940 Consulting Physicians: [facility] Pain Service Assessment and Plan: Pain of left lower extremity Assessment & Plan . The patient did note that he becomes somewhat fatigued after taking medication, but he has not really been sleeping well. At this point, I think would be appropriate, since he has a plan for the operating room tomorrow, to put him on an opioid naive LAGGING MACHINE OPERATOR. We will continue to monitor. I did talk extensively with the family about LAGGING MACHINE OPERATOR safety and only allowing him to push the button. He does have quite a doting family and they all seem to be on board, understanding the safety concerns that this might present in the event that the patient is to sleep and someone is to press the button for him. We would see how his pain syndrome develops after surgery, but LAGGING MACHINE OPERATOR is probably the appropriate treatment. I would consider Movantik in the event that his opioid-induced chronic constipation is difficult for him to control, especially since he is likely to be using more medication as his postoperative pattern unfolds. - OARRS reviewed -Will continue to follow and make adjustments as needed -Call with questions Chief Complaint/Reason for Visit: SNOMED CT(R) 1. Ischemic foot ISCHEMIC FOOT 2. PAD (peripheral artery disease) (HCC) PERIPHERAL VASCULAR DISEASE History of Present Illness: Tristin Powell is a 78 y.o. y/o male presenting with c/o Left leg pain that has been going on for the last 6-8 weeks. He states that the medications that he has been using, the oxycodone, has helped, does make him a little drowsy, but does not seem to last more than an hour or two. He denies any fevers or chills. He denies any other symptoms or complaints with the exception that his foot is quite painful. It braxton at times, it does have some deepening of the purple hue of his skin on his toes and has, through the workup, been found to have an ischemic foot. He is planned for the operating room tomorrow. He had issues with constipation until last night, after taking opioids. This is something we will continue to watch with respect to having him on a bowel regimen. History: Past Medical History: Diagnosis Date Avascular necrosis of bone of hip (HCC) Claudication (HCC) Herpes zoster Hyperlipidemia Hypertension Prostate cancer (HCC) Vascular disease Past Surgical History: Procedure Laterality Date ANKLE SURGERY Left CARDIAC SURGERY STENT PLACEMENT Family History Problem Relation Age of Onset Prostate cancer Brother Social History Social History Marital status: Spouse name: N/A Number of children: N/A Years of education: N/A Occupational History Not on file. Social History Main Topics Smoking status: Never Smoker Smokeless tobacco: Never Used Alcohol use No Drug use: No Sexual activity: Not on file Other Topics Concern Not on file Social History Narrative No narrative on file Allergy Information: I have reviewed the patient's allergies. Patient has no known allergies. Home Medications: Outpatient Prescriptions as of 09/06/2018 Medication Sig gabapentin (NEURONTIN) 100 MG capsule Take 300 mg by mouth 3 (three) times a day . XARELTO 15 mg Tab take 2 tablets by mouth once daily for 3 weeks Review of Systems: The following system(s) were reviewed and pertinent findings noted: All other systems reviewed and negative other than HPI Physical Examination: Vital Signs: BP (!) 152/75 (BP Location: Left arm, Patient Position: Lying) Pulse 86 Temp 98.6 F (37 C) (Oral) Resp 16 Ht 6' 2 Wt 111.6 kg (246 lb) SpO2 95% BMI 31.58 kg/m General: Alert, cooperative, no distress, appears stated age Head: Normocephalic, without obvious abnormality, atraumatic Eyes: conjunctiva/corneas clear, Throat: Lips, mucosa, and tongue normal; teeth and gums normal Neck: Symmetrical, trachea midline Back: Symmetric, no curvature, ROM Lungs: Respirations unlabored,normal respiratory effort Chest Wall: No tenderness or deformity Cardiovascular: Regular rate and rhythm, Abdomen: Soft, non-tender, bowel sounds active all four quadrants, Extremities: Normal, atraumatic, no cyanosis or edema, LUU x 4 Skin: Skin color, texture wnl, no rashes or lesions Musculoskeletal: no joint edema Neurologic: normal strength, sensation intact throughout Psych: Mood and affect appropriate Laboratory and Additional Data Reviewed: Laboratory 09/06/18 4:28 PM Microbiology 09/06/18 4:28 PM Pathology 09/06/18 4:28 PM Radiology 09/06/18 4:28 PM Cardiology 09/06/18 4:28 PM Medications 09/06/18 4:28 PM Transcriptions 09/06/18 4:28 PM Assessment Detail: The total time spent for this visit was 50 minutes. Greater than 50% of the time was spent in counseling and coordination of care regarding pain, medications and plan of care. Please note that plan to help manage symptoms will include maximizing adjunctive agents and developing a multi-modal treatment plan. If opiate based medications are being used, we have talked about the risk and benefits of using this class of medication. Discussed with patient that there is a risk that opioid addiction could occur, meaning that he/she might become psychologically dependent on the medication and also discussed possible side effects/adverse events associated with narcotics Goal will be to use opiates at lowest effective doses for shortest period of time to help manage acute pain Associated Order(s): IP CONSULT TO VASCULAR SURGERY VASCULAR SURGERY CONSULT NOTE 09/06/18 Patient Name: Tristin Powell : 1940 MR #: [id number] Admit Date: 1070905 ----- Nicolas Addendum As below, 78 y.o. male with a h/o PAD, HTN, HLD, CAD s/p cardiac stent (x7, [id number]), CABG (x3vv, 2017; L SV), L ankle ORIF who p/w acute on chronic critical limb ischemia and claudication. Patient states he has been having claudication symptoms in bilateral lower extremities for the past 2-3 years. Patient states that although he has been active the past several months, his symptoms have progressively worsened. In June, the patient visited a php developer to evaluate his left foot, in which he had noted some decreased sensation, increased pain, and occasional cyanosis. No intervention conducted at the time, however the patient presented to OS in mid July for acutely worsened left lower extremity pain and underwent angioplasty with left superficial femoral artery and popliteal artery stent placement 07/30; he was started on Xarelto at this time. The patient states that his pain never improved after placement of the stent, in fact he reports daily rest pain since then. Over the past month the patient has been unable to ambulate more than a few steps with the help of a walker, and has noticed worsening sensory and motor function. For the past 1 week, the patient reports his left great toe has been consistently cyanotic. On exam, the patient is able to slightly move his toes and can weakly dorsi and plantar flex his left ankle, although the range of motion is limited secondary to prior surgery. His left foot is cool and lacks sensation to light touch distal to the midfoot. Poor capillary refill, and (-) Doppler signals in DP/PT. The patient has a palpable popliteal pulse on the left. Dopplerable signals in the right DP and PT. Angiogram without intervention conducted by cardiology yesterday, with the finding of occlusion of the popliteal stent; retrograde fill demonstrates probable patent lumen of tibioperoneal trunk, however this is without antegrade flow. Mapping demonstrates adequate right saphenous vein. Will discuss the utility of a femoral tibial bypass. Will discuss with Dr. Sarabia. Miryam Rincon MD PGY-2 Surgery [phone] After 5pm and on Weekends, please page [phone] (Surgery Audiometrist distribution designer) ----- Assessment and Plan: Tristin Powell is a 78 y.o. male with a PMH of PVD s/p LLE angio with stent placement 08/09, prostate cancer, PVD, CAD, HTN and a PSH of L ankle ORIF and thriple CABG in october 2016 with L saphenous vein harvested who presented to [facility] 09/04/2018 as a transfer from [place] for second opinion regarding left lower extremity pain and discoloration Chronic LLE ischemia - Patient underwent LLE angiogram with popliteal ballooning and stent 08/09/2018 in [place], sent on aspirin and xarelto - Angiography 09/05/18 showed Infrapopliteal Artery Stenosis Left , severe ASPVD with occluded stent. No reasonable endovascular options. - STAT vein mapping bilateral LE ordered - Will obtain and review angio images with Dr. Sarabia to assess possibility of bypass based on distal target Chief Complaint/Reason for Visit: LLE pain History of Present Illness: Tristin Powell is a 78 y.o. male with history of PAD, CAD, prostate cancer presents as a transfer from [place] for concerns for left lower extremity pain and discoloration that has progressivley worsened. He has had pain and claudication symptoms for years which prompted him to to be seen 08/09 were he had ballooning and stent placement to left popliteal. He represented 1/3 with increased LLE pain that was never really helped by the stent. Pain doesn't allow him sleep. While at the [facility] he was planned to undego intervention the day of transfer but requested [facility] transfer for second opinion. Review of Systems: The following system(s) were reviewed. Pertinent positive and negative findings are noted in the HPI. [x] Const [x] Eyes [x] ENT [x] Resp [x] CV [x] GI [x] [] Neuro [x] Musc [x] Skin [] Psych [x] Endo [x] Allergy [x] Heme/Lymph History: Past Medical History: Diagnosis Date Avascular necrosis of bone of hip (HCC) Claudication (HCC) Herpes zoster Hyperlipidemia Hypertension Prostate cancer (HCC) Vascular disease Past Surgical History: Procedure Laterality Date ANKLE SURGERY Left CARDIAC SURGERY STENT PLACEMENT Family History Problem Relation Age of Onset Prostate cancer Brother Social History Social History Marital status: Spouse name: N/A Number of children: N/A Years of education: N/A Occupational History Not on file. Social History Main Topics Smoking status: Never Smoker Smokeless tobacco: Never Used Alcohol use No Drug use: No Sexual activity: Not on file Other Topics Concern Not on file Social History Narrative No narrative on file Allergy Information: I have reviewed the patient's allergies. Patient has no known allergies. Home Medications: Outpatient Prescriptions as of 09/06/2018 Medication Sig gabapentin (NEURONTIN) 100 MG capsule Take 300 mg by mouth 3 (three) times a day . XARELTO 15 mg Tab take 2 tablets by mouth once daily for 3 weeks Inpatient Medications: Scheduled: aspirin 81 mg Oral Daily aspirin 162 mg Oral Daily atorvastatin 40 mg Oral Nightly clopidogrel 75 mg Oral Daily docusate sodium 100 mg Oral Daily gabapentin 300 mg Oral Q12H SADIA metoprolol succinate 50 mg Oral Daily polyethylene glycol 17 g Oral Daily senna-docusate 1 tablet Oral BID Continuous: heparin infusion (weight based dosing) Stopped (09/05/18 1542) sodium chloride 0.9 % 20 mL/hr (09/06/18 0029) PRN:acetaminophen, atropine, bisacodyl, HYDROmorphone, nalOXone AND Notify physician AND naloxone, nitroGLYCERIN, ondansetron OR ondansetron, ondansetron OR ondansetron, oxyCODONE, prochlorperazine (COMPAZINE) injection, sodium chloride 0.9% Physical Examination: Vital Signs: BP 136/68 (BP Location: Left arm, Patient Position: Sitting) Pulse 91 Temp 98.5 F (36.9 C) (Oral) Resp 16 Ht 6' 2 Wt 111.6 kg (246 lb) SpO2 95% BMI 31.58 kg/m General: awake and alert, no acute distress Head: normocephalic, atraumatic Eyes: no scleral icterus, pupils equal and round Neck: trachea midline, soft Cardiovascular: hemodynamically stable Pulmonary: nonlabored breathing, equal chest rise Abdomen: soft, non-tender, non-distended, no peritoneal signs Extremities: cool, cyanotic, and mottled L foot. No DP or PT pulse signals on L. Palpable popliteal pulse on the L. RLE with dopplerable DP and PT Skin: warm, dry and intact Neurological: Decreased motor function to L foot and ankle. Loss of sensation midfoot down on the L Laboratory and Additional Data Reviewed: Lab Results Component Value Date WBC 7.03 09/06/2018 HGB 10.7 (L) 09/06/2018 HCT 32.0 (L) 09/06/2018 MCV 89.4 09/06/2018 PLT 232 09/06/2018 Lab Results Component Value Date GLUCOSE 98 09/06/2018 CALCIUM 9.5 09/06/2018 NA 137 09/06/2018 K 4.2 09/06/2018 CL 101 09/06/2018 BUN 9 09/06/2018 CREATININE 0.68 (L) 09/06/2018 No results found for: ALT, AST, GGT, ALKPHOS, BILITOT No results found for: INR, PROTIME Imaging Reviewed: Cardiac Catheterization Final Result Ultrasound duplex arterial leg left Final Result XR Comparison Import Final Result Saphenous vein mapping, bilateral (Results Pending) Cardiac Catheterization Result Date: 09/05/2018 Patient Name: TRISTIN POWELL Date of : 1940 Procedure Date: 09/05/2018 Physician(s): Ben Hahn MD Cath #: [id number] Ref. Physician: PROCEDURE(S) PERFORMED: Ultrasound- guided vascular access Aortogram: Abdominal with runoff-bilateral Peripheral Angiography Lower Extremity Angiogram - Left Clinical History: Prior CABG: Yes Peripheral Arterial Disease: Yes, , with prior peripheral CMO & PRESIDENT. Dyslipidemia: Yes Hypertension: Yes Pre-OP Diagnosis/Indication: Deann Class/Limb Ischemia: 4 - Ischemic rest pain ASA status unchanged immediately prior to sedation administration. Heart, lungs, and airway assessed prior to sedation. The risks, benefits, and side effects related to alternative treatment options and the risks related to not receiving the proposed interventions and care were discussed with the patient. Following informed consent, the patient was brought to the procedure room in the fasting state. bilateral groins was prepped and draped in a sterile fashion. Local anesthesia was attained with 2% Lidocaine to the Right groin region. Using standard technique, sheath(s) were placed in the following site(s): exchanged into the right femoral artery - 6F 45cm Flexor Aashish 1 Sheath Catheters were advanced using standard guide wire technique. Multiple angiographic pictures were taken and appropriate pressures obtained. Hemodynamics: Time AIR REST AO 142/52 (86) SA 14:36:59 After review of the angiography and assurance of the patient's stability, the catheter was withdrawn from the sheath and Closure device placed by - Dr. 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 No reasonable endovascular options. PERIPHERAL RECOMMENDATIONS: Surgical procedure - tibial bypass vs major amputation COMMENTS: No Complications ____ Equipment: Sheath(s) [facility] 5F 10CM PINNACLE SHEATH [employer] MEDICAL 6F 45CM .038 FLEXOR CHECKFLO ANSEL1 SHEATH Wire(s) [employer] .035 X 150CM FIXED J WIRE Catheter(s) [employer] 5F MP TEMPO AQUA CATHETER Other [employer] .035 CXI ANGLED SUPPORT CATHETERS SHER VASCULAR 6F PROGLIDE CLOSURE Peripheral Angiography: Access site: Femoral Right Retrograde arterial with ultrasound guidance Non Selective: Aorta with ilio-fem runoff Selective: Tibioperoneal artery, retrograde - left See Nursing Notes for further details Signed By Ben Hahn MD On 09/05/2018 3:50:45 PM Ben Hahn MD ____ Ultrasound Duplex Arterial Leg Left Result Date: 09/05/2018 Non-Invasive Vascular Patient: SHERRY Bazan [facility] Rec#: [id number] (Age): 1940(78y) Study Date: 09/05/2018 Room#: G93 Type: Inpatient Sex: M Reading: Pierce Moreau DO, RPVI Referring: LEVY Slinger Sequins: Rima Celestin RDCS, RVT Slinger Sequins: Deena Pelayo RDCS RVT Procedure Info: [id number] Study Quality: Lower Arterial Duplex: adequate Diagnosis: I73.9 Peripheral vascular disease, unspecified Lower Arterial Duplex Conclusions Occluded stent noted in the left distal superficial femoral artery and popliteal artery. 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 Unable to adequately image runoff vessels due to patient's movement and intolerance to exam. Findings Left external iliac artery: calcific plaque present. Left common femoral artery: heterogenous plaque present. The procedure was explained to the patient. The patient voiced understanding. Measurements Left PSV Name Value Units EIA 83.2 cm/sec COMMERCIAL LOAN REVIEWER 95.6 cm/sec Profunda 85.5 cm/sec SFA - prox -25 cm/sec SFA - mid -67.2 cm/sec SFA - dist 58.2 cm/sec Popliteal - dist 0 cm/sec CMO & PRESIDENT 6.8 cm/sec Pre Stenosis #1 9.3 cm/sec Within Stenosis #1 67.2 cm/sec Distal Stenois #1 58.2 cm/sec Left Stent #1 Name Value Units Pre 58.2 cm/sec Orig/Prox 0 cm/sec Mid 0 cm/sec Dist 0 cm/sec Distal To 6.8 cm/sec Electronically signed at 09/05/2018 11:55:51 by: Pierce Moreau DO, RPVI Xr Comparison Import Result Date: 09/04/2018 This order has been auto-finalized and does not contain a result. Esau Alejandro MD General Surgery PGY-1 Pager [phone] *After 5pm, or on weekends, page [phone]* Associated attestation - Mohsen Sarabia MD - 09/06/2018 4:46 PM EST Patient seen and examined. I have personally reviewed all pertinent labs, radiological studies and records. I have personally examined the patient and agree with resident/ARTIFICIAL FLOWER MAKER/PA assessment and plan with the following additional findings. Pt has acute on chronic critical limb ischemia with severe rest pain and early tissue loss with purple discoloration of the toes with bullae and mottling of the entire foot. He has good vein in the right leg and a peroneal target. There is very poor run off past the ankle. I spoke with the patient and the family at length regarding bypass and the fact that it has a winnie risk of not working; however, he was very functional prior to this and he wants to try to save the foot. Bypass is his only option for limb salvage and he wishes to give it a try. We will add him on for tomorrow. Please resume heparin in the meantime. Associated Order(s): IP CONSULT TO CARDIOLOGY [facility] Heart & Vascular Physicians Name: Tristin Powell Age: 78 y.o. Date: September 05, 2018 ASSESSMENT & PLAN: Critical lower limb ischemia Assessment & Plan Pt s/p LLE critical limb ischemia Atkinson class 4 rest pain with distal discoloration to his toes. Pt is s/p L pop angioplasty with stent placement 08/09 at [facility] in [place], [place]. Pt was placed on Xarelto and ASA. Pt represented to that hospiral 08/30 with increased LLE pain. On exam pt has palpable bilateral femoral pulses and popliteal pulses. Unable to obtain by doppler BLE R or L DP/PT pulses. LLE is discolored *see images in this note. Pt is moaning in pain. Will order a stat dose of IV pain medicine at this time prior to his imaging. Plan: Continue heparin at this time Will order an arterial duplex as well as YAMILE. Please apply Rooke boot to left lower extremity. Continue ASA, Plavix and high intensity statin medication. Coronary artery disease involving coronary bypass graft of [place] heart without angina pectoris Assessment & Plan Patient with remote coronary artery bypass grafting to 3 vessels. Patient denies chest pain at this time. Hypercholesteremia Assessment & Plan Patient with history of hypercholesteremia. Plan: Continue high intensity statin medication Risk factor modification. Essential hypertension Assessment & Plan Patient with history of hypertension. Blood pressure at this time 132/62. Plan: Continue medications as prescribed. Class 1 obesity with body mass index (BMI) of 31.0 to 31.9 in adult Assessment & Plan Patient with BMI greater than 30. Plan: Patient with BMI >30. According to the NIH and USPSTF, it is recommended that the patient lose weight utilizing a combination of dietary (reduction in calories of 500 to 1,000 kcal/day) and behavioral therapies, in addition to increasing physical activity (30 to 45 minutes for 3 to 5 days per week) for a goal BMI <30. CHIEF COMPLAINT: LLE ischemia HISTORY OF PRESENT ILLNESS: Tristin Powell is a 78 y.o. 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 Pt s/p LLE critical limb ischemia Atkinson class 4 rest pain. Pt is s/p L pop angioplasty with stent placement 08/09 at [facility] in [facility] with Dr. Vogt. Pt was placed on Xarelto and ASA. Pt represented to [facility] 08/30 with increased LLE pain. Pt was scheduled to have a vascular surgical procedure at [facility] in [facility] and requested to be tx to [facility]. PAST MEDICAL HISTORY: Past Medical History: Diagnosis Date Avascular necrosis of bone of hip (HCC) Claudication (HCC) Herpes zoster Hyperlipidemia Hypertension Prostate cancer (HCC) Vascular disease Past Surgical History: Procedure Laterality Date ANKLE SURGERY Left CARDIAC SURGERY STENT PLACEMENT Family History Problem Relation Age of Onset Prostate cancer Brother Social History Social History Marital status: Spouse name: N/A Number of children: N/A Years of education: N/A Occupational History Not on file. Social History Main Topics Smoking status: Never Smoker Smokeless tobacco: Never Used Alcohol use No Drug use: No Sexual activity: Not on file Other Topics Concern Not on file Social History Narrative No narrative on file ALLERGIES: I have reviewed the patient's allergies. Patient has no known allergies. HOME MEDICATIONS: Prior to Admission medications Medication Sig Start Date End Date Taking? Authorizing Provider aspirin 81 MG EC tablet Take 81 mg by mouth daily . Yes Historical Provider, atorvastatin (LIPITOR) 40 MG tablet Take by mouth . Yes Historical Provider, gabapentin (NEURONTIN) 100 MG capsule Take 300 mg by mouth 3 (three) times a day . 07/12/18 Yes Historical Provider, metoprolol tartrate (LOPRESSOR) 50 MG tablet Take 50 mg by mouth 2 (two) times a day . Yes Historical Provider, oxyCODONE-acetaminophen (PERCOCET) 5-325 mg per tablet Take 1 tablet by mouth every 6 (six) hours as needed for pain . Yes Historical Provider, metoprolol succinate (TOPROL-XL) 50 MG 24 hr tablet Take 50 mg by mouth . Historical Provider, rivaroxaban (XARELTO) 20 mg Tab Take 20 mg by mouth . Historical Provider, XARELTO 15 mg Tab take 2 tablets by mouth once daily for 3 weeks 08/09/18 Historical Provider, REVIEW OF SYSTEMS: The following system(s) were reviewed and pertinent findings noted: General No fever, chills, weight loss, fatigue HEENT No H/A, blurred/double vision, hoarseness, epistaxis Cardiovascular No palpitations, chest pain/pressure Respiratory No SOB, LAM, wheezing, cough GI No N/V/D/C or abdominal pain. No hematochezia No hematuria, dysuria Skin No rashes/lesions Neuro No dizziness, CVA/TIA-like symptoms PHYSICAL EXAMINATION: Vital Signs: BP (!) 161/68 (BP Location: Right arm, Patient Position: Lying) Pulse 95 Temp 98.6 F (37 C) (Oral) Resp 15 Ht 6' 2 Wt 111.6 kg (246 lb) SpO2 95% BMI 31.58 kg/m General: Alert, cooperative, no distress, appears stated age Head: Normocephalic, without obvious abnormality, atraumatic Eyes: PERRL, conjunctiva/corneas clear, EOM's intact, fundi benign both eyes Throat: Lips, mucosa, and tongue normal; teeth and gums normal Neck: Supple, symmetrical, trachea midline, no adenopathy; thyroid: no enlargement/tenderness/nodules; no carotid bruit or JVD Back: Symmetric, no curvature, ROM normal, no CVA tenderness Lungs: Clear to auscultation bilaterally, respirations unlabored,normal respiratory effort Chest Wall: No tenderness or deformity Cardiovascular: Regular rate and rhythm, S1 and S2 normal, no murmur, rub or gallop; Abdomen: Soft, non-tender, bowel sounds active all four quadrants,no masses, no organomegaly Extremities: Normal, atraumatic, no cyanosis or edema Skin: Skin color, texture, turgor normal, no rashes or lesions Musculoskeletal: Full range of motion of all extremities; no joint edema Neurologic: CNII-XII intact; normal strength, sensation and reflexes throughout Psych: Mood and affect appropriate LABS: No results found for: CHOL, TRIG, HDL, LDLDIRECT Thank you for allowing me to participate in Tristin Powell's care. Should you have any questions regarding their management please do not hesitate to contact me. Respectfully, Yasmeen Diaz, MSN, ARTIFICIAL FLOWER MAKER-C [facility] Heart and Vascular Physicians Associated attestation - Campos Guerra MD - 09/05/2018 11:01 AM EST [facility] Heart & Vascular Physicians Vascular Staff: I saw and evaluated the patient with vascular team during inpatient rounds. I discussed the harper findings and I agree with assessment and plan as documented by our vascular CABINET INSTALLER. Mr. Tristin Powell is a 78 y.o. with male left lower extremity acute on chronic limb ischemia (Atkinson grade 1 viable limb): Patient is a status post recent revascularization at an outside hospital about 6 weeks ago (SFA stenting in the setting of lifestyle limiting claudication and rest pain). Arterial duplex of the left lower extremity obtained today (I reviewed all images), demonstrate distal SFA occluded stent, popliteal artery occlusion along with infrapopliteal tibioperoneal occlusion with minimal collateral circulation. Patient presented with worsening left lower extremity pain, evident cholesterol emboli in the distal toes. Mild numbness of the left foot is reported. However, sensory and motor functions are preserved. Left foot and leg are cold, without any evidence of tissue loss, skin necrosis or gangrenous changes. Continue unfractionated heparin infusion, and optimal medical care including antiplatelet therapy, high intensity statin, and optimal hypertension control. Keep the left lower extremity in Rooke boot and offloaded at all times. Will proceed with urgent revascularization/angiogram today. I am not certain if patient would response to thrombolytic therapy. Discussed with my partner Dr. Ben Hahn who will perform the angiogram. Thank you for consulting vascular. Raulito Guerra MD [facility] Vascular Medicine [facility] Heart and Vascular 09/05/18 10:54 AM in this encounter Physical Therapy PHYSICAL THERAPY EVALUATION NOTE Skilled Therapy Needs After Discharge Are Skilled Therapy Services Needed After Discharge: Yes Intensity of Skilled Therapy: Up to 5 days per week Anticipated Duration of Skilled Therapy: Duration 10 - 30 days DME Recommendation: None Rehab Potential: Good Outcomes Measures Prior Function - Basic Mobility Raw Score: 24 Points Prior Function - Basic Mobility % Impaired: 0% functionally impaired AM-PAC - Basic Mobility Raw Score: 17 Points AM-PAC - Basic Mobility % Impaired: 43.83% functionally impaired Physical Therapy Assessment History: The following factors influence the patient's participation in the PT plan of care: Personal factors: age Environmental factors: lives alone The following co-morbidities (from this admission or prior) influence the patient's participation in this plan of care: OA Number of History elements affecting this patient's PT plan of care: 3 or more Examination of Body Systems: The patient presents with impairments of pain, functional endurance, RLE NWB. These impairments result in limitations of gait, functional transfers and activity tolerance. These impairments result in restrictions of household mobility, community mobility, work-related activities and leisure activities. Number of Body Systems elements affecting this patient's PT plan of care: 4 or more Clinical Presentation: The patient's clinical presentation for this PT evaluation is unstable as evidenced by current PT documentation. Activity Tolerance Activity Tolerance: Tolerates 10 - 20 min activity with multiple rests Therapy Precautions Orthotic Devices: No(post. splint) Weight Bearing Status: X RLE: Non Wt bearing General Rehab Precautions: Fall risk Balance CGA for safety Bed Mobility Supine to Sit: Stand by assistance Transfers Sit to Stand: Contact guard Careers Counsellor: Wheeled walker Gait/Locomotion Gait Assistance: Contact guard Assistive Device: Wheeled walker Distance: 5 Feet Pattern: L decreased step length Weight Bearing Status: Able to maintain, Non-weight bearing Home Living Type of Home: House Home Layout: One level Home Equipment: Walker, Wheeled Walker, Wheelchair-electric Prior Level of Function Level of [place]: Independent with ADLs and functional transfers, Independent with homemaking with ambulation Lives With: Alone Receives Help From: Family 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 Procedure: LEFT MIDFOOT AMPUTATION; Surgeon: Flynn Mann DPM; Location: [facility]; Service: Podiatry ANKLE SURGERY Left BYPASS PERONEAL FEMORAL Right 09/07/2018 Procedure: BYPASS PERONEAL FEMORAL, RIGHT SAPHENOUS VEIN HARVEST, COMPLETION ANGIOGRAM; Surgeon: Mohsen Sarabia MD; Location: [facility] NEURO OR; Service: Cardiovascular CARDIAC CATHETERIZATION Left 09/05/2018 Procedure: Angio Lower Extremity; Surgeon: Ben Hahn MD; 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 This note stands as the current Discharge Summary upon patient discharge from the hospital or completion of Physical Therapy Plan of Care. Occupational Therapy OCCUPATIONAL THERAPY EVALUATION NOTE Skilled Therapy Needs After Discharge Anticipate Resolution of Current Assessment Limitations Including: Pain Are Skilled Therapy Services Needed After Discharge: Yes Intensity of Skilled Therapy: Up to 5 days per week Anticipated Duration of Skilled Therapy: Duration 10 - 30 days DME Recommendation: Elevated toilet seat DME Rationale: Patient's condition prevents him/her from accomplishing ADL without recommended equipment, Patient's condition creates an increased risk of safety hazard without recommended equipment Rehab Potential: Good Outcomes Measures Prior Function Daily Activity: Raw Score: 24 Prior Function Daily Activity % Impaired: 0% functionally impaired AM-PAC Daily Activity: Raw Score: 17 AM-PAC Daily Activity % Impaired: 38.32% functionally impaired Occupational Therapy Assessment The patient presents with musculoskeletal impairment(s) in left lower extremity which create performance deficits including strength, range of motion, balance, coordination, activity tolerance and pain, sequencing and safety, and pain intolerance and knowledge deficit. These performance impairments limit participation in grooming, LE dressing, bathing, toileting, home management and functional mobility in the chosen occupational roles of premorbid level individual, parent, spouse, family member and community member. The patient's co morbidities do affect patient performance in the above activities and roles. The patient's home setup is a geek squad manager and family/caregiver support is a geek squad manager for return to prior level of function. The patient's compliance is a geek squad manager and awareness of own capacity and performance is a geek squad manager to return to prior level of function. During the assessment, minimal to moderate modification of task was required and several treatment options were identified in the plan of care. This consultation required expanded review of the medical and therapy history. Activity Tolerance Activity Tolerance: Tolerates 10 - 20 min activity with multiple rests Therapy Precautions Orthotic Devices: No Weight Bearing Status: X RLE: Non Wt bearing General Rehab Precautions: Fall risk Cognition Overall Cognitive Status: Within Functional Limits Arousal/Alertness: Appropriate responses to stimuli Orientation Level: Oriented X4 Executive functioning: WFL Safety Judgment: Good awareness of safety precautions Problem Solving: Able to problem solve independently Attention: Attends to distracted environment Social Interaction: Appropriate, Cooperative Skilled Intervention: 100% 2 step command following ADL/IADL Feeding: Independent UE Dressing: Stand by assistance LE Dressing: Mod Bed Mobility Sit to Supine: Min, 2 person assist Functional Transfers Sit to Stand: Min, Contact guard Skilled Intervention: functional ambulation: CGA w/AD Exercise Interventions Home Living Type of Home: House Home Layout: One level Bathroom Shower/Tub: Tub/shower unit Bathroom Toilet: Standard Bathroom Equipment: Shower chair Home Equipment: Walker, Wheeled Walker, Wheelchair-electric Prior Level of Function Level of [place]: Independent with ADLs and functional transfers, Independent with homemaking with ambulation Lives With: Alone Receives Help From: Family 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 Procedure: LEFT MIDFOOT AMPUTATION; Surgeon: Flynn Mann DPM; Location: [facility]; Service: Podiatry ANKLE SURGERY Left BYPASS PERONEAL FEMORAL Right 09/07/2018 Procedure: BYPASS PERONEAL FEMORAL, RIGHT SAPHENOUS VEIN HARVEST, COMPLETION ANGIOGRAM; Surgeon: Mohsen Sarabia MD; Location: [facility]; Service: Cardiovascular CARDIAC CATHETERIZATION Left 09/05/2018 Procedure: Angio Lower Extremity; Surgeon: Ben Hahn MD; 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 This note stands as the current Discharge Summary upon patient discharge from the hospital or completion of Occupational Therapy Plan of Care. Associated Order(s): IP CONSULT TO GASTROENTEROLOGY CONSULT NOTE Patient Name: Tristin Powell Admit Date: [id number] MR #: [id number] : 1940 Physicians: Flash Lovelace MD (Family); Flynn Mann, * (Referring) Chief Complaint/Reason for Visit: Upper GI Bleeding Assessment and Plan: Upper GI Bleeding 1. Monitor Hgb, keep >8 2. Continue to hold ASA and Plavix 3. EGD 10/10 -Plavix & ASA placed on hold on 10/09 Further recommendations to come pending staffing with GI attending. History of Present Illness: Tristin Powell is a 78 y.o. y/o male presenting from home with c/o needing left foot partial amputation which was completed on 10/08. We have now been consulted due to concern of GI Bleeding. Currently his Plavix and his ASA is hold hold due to recent surgery. It was report that he had EBL of 150 mls during his surgery at his current visit. On admission, 10/04 his H/H was 11.3/32.7, however 3 weeks ago his H/H was 7.7/24.1 at which time he was in [facility]. At that time he was found to have Acute on Chronic anemia and at that time on admission had a Hgb of 11.2 which decreased to 7.5 but was up to 8.1 on discharge which they related to blood loss from bypass surgery. He was only given 1 PRBC while there. He had a gastrocult completed yesterday that was positive. H/H 8.3/24 Gastrocult + PT/INR 13.9/1.1 History: 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 Procedure: LEFT MIDFOOT AMPUTATION; Surgeon: Flynn Mann DPM; Location: [facility]; Service: Podiatry ANKLE SURGERY Left BYPASS PERONEAL FEMORAL Right 09/07/2018 Procedure: BYPASS PERONEAL FEMORAL, RIGHT SAPHENOUS VEIN HARVEST, COMPLETION ANGIOGRAM; Surgeon: Mohsen Sarabia MD; Location: [facility]; Service: Cardiovascular CARDIAC CATHETERIZATION Left 09/05/2018 Procedure: Angio Lower Extremity; Surgeon: Ben Hahn MD; 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; Service: Cardiovascular CARDIAC SURGERY 2017 triple bypass EYE SURGERY Right 2014 FOOT SURGERY ORTHOPEDIC SURGERY STENT PLACEMENT Family History Problem Relation Age of Onset Prostate cancer Brother Social History Socioeconomic History Marital status: Spouse name: Not on file Number of children: Not on file Years of education: Not on file Highest education level: Not on file Social Needs Financial resource strain: Not on file Food insecurity - worry: Not on file Food insecurity - inability: Not on file Transportation needs - medical: Not on file Transportation needs - non-medical: Not on file Occupational History Not on file Tobacco Use Smoking status: Never Smoker Smokeless tobacco: Never Used Substance and Sexual Activity Alcohol use: Not Currently Drug use: Never Sexual activity: Not Currently Other Topics Concern Not on file Social History Narrative Not on file Allergy Information: I have reviewed the patient's allergies. Patient has no known allergies. Home Medications: Prior to Admission medications Medication Sig Start Date End Date Taking? Authorizing Provider aspirin 81 MG EC tablet Take 81 mg by mouth daily . Yes Historical Provider, atorvastatin (LIPITOR) 40 MG tablet Take 40 mg by mouth daily . Yes Historical Provider, bisacodyl (DULCOLAX) 5 mg EC tablet Take 5 mg by mouth 2 (two) times a day as needed for constipation . Yes Historical Provider, cephALEXin (KEFLEX) 500 MG capsule Take 500 mg by mouth 3 (three) times a day (for 7 days) . 09/29/18 Yes Historical Provider, clopidogrel (PLAVIX) 75 mg tablet Take 1 (one) tablet (75 mg total) by mouth daily . 09/13/18 10/13/18 Yes Rojelio Woody MD gabapentin (NEURONTIN) 400 MG capsule Take 1 (one) capsule (400 mg total) by mouth every 8 (eight) hours . 09/13/18 10/13/18 Yes Rojelio Woody MD metoprolol tartrate (LOPRESSOR) 50 MG tablet Take 50 mg by mouth 2 (two) times a day . Yes Historical Provider, ondansetron (ZOFRAN) 4 MG tablet Take 1 (one) tablet (4 mg total) by mouth every 8 (eight) hours as needed for nausea . 09/13/18 09/13/19 Yes Rojelio Woody MD oxyCODONE-acetaminophen (PERCOCET) 5-325 mg per tablet Take 1 tablet by mouth every 6 (six) hours as needed for pain ( . Yes Historical Provider, oxymetazoline (AFRIN) 0.05 % nasal spray Instill 2 sprays into each nostril 2 (two) times a day as needed for congestion . Yes Historical Provider, zolpidem (AMBIEN) 10 mg tablet Take 10 mg by mouth nightly as needed for sleep . Yes Historical Provider, magnesium citrate solution Take 296 mL by mouth as needed (Take if no bowel movement for 2-3 days) . 09/13/18 Rojelio Woody MD senna-docusate (SENNA-S) 8.6-50 mg Take 2 (two) tablets by mouth 2 (two) times a day . 09/13/18 10/13/18 Rojelio Woody MD Review of Systems: The following system(s) were reviewed and pertinent findings noted: All other systems reviewed and negative other than HPI Physical Examination: Vital Signs: BP (!) 151/78 (BP Location: Left arm, Patient Position: Lying) Pulse 86 Temp 98.1 F (36.7 C) (Oral) Resp 14 Ht 6' 2 Wt 98.9 kg (218 lb) SpO2 92% BMI 27.99 kg/m General: Alert, cooperative, no distress, appears stated age Head: Normocephalic, without obvious abnormality, atraumatic Eyes: PERRL, conjunctiva clear Throat: Lips, mucosa, and tongue normal; teeth and gums normal Neck: Supple, symmetrical, trachea midline Back: Symmetric, no curvature, ROM normal, no CVA tenderness Lungs: Clear to auscultation bilaterally, respirations unlabored,normal respiratory effort Chest Wall: No tenderness or deformity Cardiovascular: Regular rate and rhythm, S1 and S2 normal Abdomen: Soft, RUQ tender, bowel sounds active all four quadrants,no masses, no organomegaly Extremities: Normal, atraumatic Skin: Skin color, texture, turgor normal Musculoskeletal: Full range of motion of all extremities except left due to splint Neurologic: Normal strength Psych: Mood and affect appropriate Laboratory and Additional Data Reviewed: Laboratory 10/10/18 8:05 AM Radiology 10/10/18 8:05 AM Medications 10/10/18 8:05 AM Lab Results Component Value Date INR 1.1 10/08/2018 INR 1.2 (H) 09/13/2018 INR 1.2 (H) 09/12/2018 PROTIME 13.9 10/08/2018 PROTIME 14.9 (H) 09/13/2018 PROTIME 14.6 (H) 09/12/2018 Lab Results Component Value Date ALT 25 10/04/2018 AST 25 10/04/2018 ALKPHOS 109 10/04/2018 BILITOT 0.5 10/04/2018 Lab Results Component Value Date WBC 5.18 10/09/2018 HGB 8.3 (L) 10/10/2018 HCT 24.0 (L) 10/10/2018 MCV 97.2 10/09/2018 PLT 187 10/09/2018 Lab Results Component Value Date GLUCOSE 111 (H) 10/09/2018 CALCIUM 8.6 10/09/2018 NA 141 10/09/2018 K 4.2 10/09/2018 CL 106 10/09/2018 BUN 9 10/09/2018 CREATININE 0.95 10/09/2018 CREATININE 0.90 10/09/2018 Xr Chest 1 View Result Date: 10/09/2018 EXAMINATION: SINGLE XRAY VIEW OF THE CHEST 10/09/2018 1:58 pm COMPARISON: 09/07/2018. HISTORY: ORDERING SYSTEM PROVIDED HISTORY: Dyspnea; TECHNOLOGIST PROVIDED HISTORY: Reason for Exam: Dyspnea Illness/Other Acuity: Acute Cancer History: unk Surgery, Radiation History: YES Type of Encounter: Initial FINDINGS: Status post median sternotomy. Cardiac and mediastinal contours enlarged but unchanged. Hyperinflated lungs, with prominence of the interstitial lung markings. There are increased bibasilar pulmonary opacities. No significant pleural effusion within visualized lungs. Left costophrenic angle is partially imaged. No evidence of pneumothorax. No evidence of acute osseous abnormalities. Increased bibasilar pulmonary opacities may represent atelectasis, pneumonia, and/or aspiration. Recommend radiographic follow-up to complete resolution. Findings suggestive of underlying COPD. TRP/jw Workstation ID: [id number] Doppler Ankle/brachial Index Result Date: 09/10/2018 Non-Invasive Vascular Patient: SHERRY Bazan [facility] Rec#: [id number] (Age): 1940(78y) Study Date: 09/10/2018 Room#: 8506 Type: Inpatient Sex: M Reading: [place] Reading: Ben Hahn MD, RPVI Referring: Esau Alejandro Slinger Sequins: Andre Madrid RDCS/INOCENCIO Procedure Info: [id number] Study Quality: Lower Arterial Doppler: adequate Diagnosis: I73.9 Peripheral vascular disease, unspecified Lower Arterial Doppler Conclusions Right ankle brachial index indicates moderate peripheral artery disease. Toe pressure is 52 mmHg. Left ankle brachial index indicates mild peripheral artery disease. Toe pressure is 0 mmHg. No evidence of small vessel disease noted at the transmetatarsal level in the right foot. Toe brachial index is abnormal. Moderate small vessel disease noted at the transmetatarsal level in the left foot. Toe brachial index is abnormal. The procedure was explained to the patient. The patient voiced understanding. Finding Grids Lower PVR Waveforms Right Left Ankle B B Transmet N B Harper --------- B = Abnormal N = Normal Toe PPG Waveforms Right Left 1st Digit N A Harper --------- N = Normal A = Absent Measurements Right Pressures/Ratios Name Value Units Brachial 154 mmHg Ankle (Posterior Tibial) 96 mmHg Ankle (Dorsalis Pedis) 93 mmHg Toe 52 mmHg YAMILE 0.62 ratio TBI 0.34 ratio Left Pressures/Ratios Name Value Units Brachial 150 mmHg Ankle (Posterior Tibial) 75 mmHg Ankle (Dorsalis Pedis) 116 mmHg Toe 0 mmHg YAMILE 0.75 ratio TBI 0 ratio History CAD. Hypertension. PAD. Electronically signed at 09/10/2018 17:30:46 by: Ben Hahn MD, RPVI Echocardiogram Complete Result Date: 10/08/2018 REPORT Patient: SHERRY Bazan [facility] Rec#: [id number] (Age): 1940(78y) Height: 188(cm)/73(in) Study Date: 10/08/2018 Weight: 99(kg)/218(lbs) Room#: [facility] BSA: [id number] Type: Inpatient Loc: [facility] Echo Lab Sex: M Reading: Emmanuel Connor MD F Referring: AARON CHOI DANIEL Shop Welder: Geovani Matson RDCS, RVT History: Hyperlipidemia Hypertension. Valvular disease. Diagnosis: ICD-10-PCS Encounter for preprocedural cardiovascular examination (Z01.810) Cardiac Complications, not classified (997.1) CPT Code(s): ECHO COMPLETE W/ DOPPLER (01760) HCPCS Code C8923 Echo Full w/ contrast. Study Quality The study quality is fair. Summary: Patient identity verified and ID band on (pause and confirm). Current HP present on patient chart. Procedure explained and patient verified understanding. Definity explained to patient. Patient verbalizes understanding and agrees to proceed. Definity 1.3ml/8.7ml normal sterile saline 2 ml total given IV over 30- 60 seconds. Conclusions: There is normal left ventricular systolic function. Moderate concentric left ventricular hypertrophy is observed. The diastolic filling pattern is consistent with impaired relaxation and normal LA pressure (Mild diastolic dysfunction). The estimated ejection fraction is 55-60%. The left atrium is mildly dilated. The right ventricle is moderately dilated. The right ventricular global systolic function is moderately reduced. There is mild aortic regurgitation. There is mild mitral regurgitation. Findings Reason For Study: Pre-op cardiac evaluation. Left Ventricle: The left ventricular chamber size is normal. Moderate concentric left ventricular hypertrophy is observed. There is normal left ventricular systolic function. The estimated ejection fraction is 55-60%. The diastolic filling pattern is consistent with impaired relaxation and normal LA pressure (Mild diastolic dysfunction). Left Atrium: The left atrium is mildly dilated. Right Ventricle: The right ventricle is moderately dilated. The right ventricular global systolic function is moderately reduced. Right Atrium: The right atrium appears normal. Aortic Valve: The aortic valve is trileaflet. Moderate aortic cusp sclerosis is present. There is no hemodynamically significant stenosis. There is mild aortic regurgitation. Mitral Valve: The mitral valve leaflets are moderately thickened. Mild mitral leaflet calcification is visualized. Mitral valve leaflet mobility appears normal. There is mild mitral regurgitation. Tricuspid Valve: The tricuspid valve appears grossly normal in structure and function. There is mild tricuspid regurgitation. The right ventricular systolic pressure is 30.2 mmHg. Pulmonic Valve: The pulmonic valve appears grossly normal in structure and function. There is mild pulmonic regurgitation. Pericardium: There is no pericardial effusion. The pericardium appears grossly normal. Aorta: There is mild dilatation of the ascending aorta. There is plaque visualized in the ascending aorta. HR 77 BP 134/67 Measurements Chambers MM Name Value Normal Range AV cusp separation (MM) 1.9 cm none Chambers 2D Name Value Normal Range IVSd (2D) 1.46 cm none LVPWd (2D) 1.34 cm none IVS:LVPW ratio (2D) 1.09 ratio none LVIDd (2D) 4.56 cm none LVIDs (2D) 3.6 cm none LVIDd (2D) index 2.02 cm/m2 none LVIDs (2D) index 1.6 cm/m2 none LV FS (2D) 21.05 % none LV FS (Teichholz) (2D) 21.1 % none LV FS (cube) (2D) 21.1 % none EF Teichholz (2D) 42.92 % none Ao root diameter (2D) 4.4 cm none LA dimension (AP) 2D 4.2 cm none LA:Ao ratio (2D) 0.95 ratio none Aortic root diameter (2D) inde1.95 cm/m2 none LA dimension (2D) index 1.86 cm/m2 none Volumes/Mass Name Value Normal Range LA ESV SP 4CH (MOD) 64 ml none LA ESV SP 2CH (MOD) 64.6 ml none LA ESV BP (MOD) 66.5 ml none LA ESV BP (MOD) index 29.48 ml/m2 none LV EDV SP 4CH (MOD) 171 ml none LV ESV SP 4CH (MOD) 76.2 ml none EF SP 4CH (MOD) 55.44 % none LV EDV SP 2CH (MOD) 144 ml none LV ESV SP 2CH (MOD) 32.5 ml none EF SP 2CH (MOD) 77.43 % none LV EDV BP 161 ml none LV ESV BP 52.3 ml none BP EF (MOD) 67.52 % none LV EDV BP index 71.38 ml/m2 none LV ESV BP index 23.19 ml/m2 none LV mass (2D) 253.42 g none LV mass (2D) index 112.35 g/m2 none Diastolic/Systolic Function Name Value Normal Range MV E-wave Vmax 0.68 m/sec none MV deceleration time 236 msec none MV A-wave Vmax 1.05 m/sec none MV E:A ratio 0.64 ratio (1.1 - 1.5) LV E:e' septal ratio 12.7 ratio none LV E:e' lateral ratio 14.5 ratio none Aortic Valve Name Value Normal Range AV Vmax 1.01 m/sec (1 - 1.7) AV peak gradient 4.08 mmHg (Less Than 36) LVOT diameter 2.2 cm (1.7 - 2.5) LVOT Vmax 0.85 m/sec (0.7 - 1.1) LVOT peak gradient 3 mmHg none DOI (Vmax) 0.84 ratio none RAMIREZ (continuity Vmax) 3.21 cm2 none RAMIREZ (continuity Vmax) index 1.42 cm2/m2 none AR PHT 431 msec none AR peak gradient 50 mmHg none Ascending Ao 4.2 cm none Tricuspid Valve Name Value Normal Range TR Vmax 2.51 m/sec none TR peak gradient 25.2 mmHg none RAP 5 mmHg none RVSP 30.2 mmHg none Pulmonic Valve/Qp:Qs Name Value Normal Range PV Vmax 0.9 m/sec (0.6 - 0.9) PV peak gradient 3.[address] end-diastolic Vmax 1.41 m/sec none PA end-diastolic pressure 12.95 mmHg none PV acceleration time 77 msec none Electronically Signed at 10/08/2018 17:26:05 by: Emmanuel Connor MD [facility] Xr Ankle Left 3+ Views (standard) Result Date: 09/20/2018 EXAMINATION: XR FOOT LEFT 3+ VIEWS (STANDARD); XR ANKLE LEFT 3+ VIEWS (STANDARD) HISTORY: ORDERING SYSTEM PROVIDED HISTORY: Critical lower limb ischemia, TECHNOLOGIST PROVIDED HISTORY: Reason for exam: Critical lower limb ischemia Illness/Other Cancer History: unk Surgery, RadiationHistory: unk Encounter Type: Unknown Additional signs and symptoms: k ORDERING SYSTEM PROVIDED DIAGNOSIS CODES: I99.8 Critical lower limb ischemia COMPARISON: None available. FINDINGS: Three nonweightbearing views of the left ankle and 3 nonweightbearing views of the left foot. No displaced acute fracture or dislocation. Lateral fixation plate projects over the distal fibula. No evidence of complication. Fragmentation of the distal tip of the medial malleolus, likely sequela of remote injury. Joint spaces are preserved. No aggressive osseous lesions or bony demineralization. Extensive vascular calcifications. No acute osseous abnormalities identified. Status post remote ORIF of the distal fibula. Extensive vascular calcifications. WTW/vrs Workstation ID: [id number] Xr Foot Left 2 Views Result Date: 10/08/2018 EXAMINATION: 2 XRAY VIEWS OF THE LEFT FOOT 10/08/2018 11:54 am COMPARISON: 10/04/2018. 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 Surgical drain is present. Evidence of remote ORIF of the lateral malleolus. Overlying casting obscures detail. Postsurgical changes status post amputation of the left foot at the level of the midfoot Chopart articulations. Surgical drain present. VK/mll Workstation ID: [id number] Xr Foot Left 3+ Views (standard) Result Date: 10/06/2018 EXAMINATION: 3 XRAY VIEWS OF THE LEFT FOOT 10/04/2018 3:52 pm COMPARISON: 09/20/2018. HISTORY: ORDERING SYSTEM PROVIDED HISTORY: Left foot gangrene; TECHNOLOGIST PROVIDED HISTORY: Reason for Exam: Left foot gangrene Illness/Other Acuity: Unknown Cancer History: unk Surgery, Radiation History: unk Type of Encounter: Unknown Additional signs and symptoms: Left foot gangrene FINDINGS: Overlying dressing material somewhat limits evaluation. Diffuse osteopenia also limits evaluation. No convincing evidence of new osseous destruction. No convincing evidence of soft tissue gas. No acute fracture or dislocation. Plate and screw fixation of the distal tibia. 1. Limited evaluation due to overlying dressing material and diffuse osteopenia. No radiographic evidence of soft tissue gas. No radiographic evidence of new area of osseous destruction. 2. No acute osseous abnormalities identified. RECOMMENDATIONS: If further evaluation is clinically warranted, consider MRI or CT. TRP/dbg Workstation ID: [id number] Xr Foot Left 3+ Views (standard) Result Date: 09/20/2018 EXAMINATION: XR FOOT LEFT 3+ VIEWS (STANDARD); XR ANKLE LEFT 3+ VIEWS (STANDARD) HISTORY: ORDERING SYSTEM PROVIDED HISTORY: Critical lower limb ischemia, TECHNOLOGIST PROVIDED HISTORY: Reason for exam: Critical lower limb ischemia Illness/Other Cancer History: unk Surgery, RadiationHistory: unk Encounter Type: Unknown Additional signs and symptoms: unk ORDERING SYSTEM PROVIDED DIAGNOSIS CODES: I99.8 Critical lower limb ischemia COMPARISON: None available. FINDINGS: Three nonweightbearing views of the left ankle and 3 nonweightbearing views of the left foot. No displaced acute fracture or dislocation. Lateral fixation plate projects over the distal fibula. No evidence of complication. Fragmentation of the distal tip of the medial malleolus, likely sequela of remote injury. Joint spaces are preserved. No aggressive osseous lesions or bony demineralization. Extensive vascular calcifications. No acute osseous abnormalities identified. Status post remote ORIF of the distal fibula. Extensive vascular calcifications. [employer] Workstation ID: [id number] Assessment Detail: Associated attestation - Ben Jensen MD - 10/10/2018 1:16 PM EST Pt. seen and examined by myself. I agree with the assessment and plan of the nurse practioner. Drop in Hb in postoperative setting x 2 requiring transfusions. No signs of acutre gib. Gastrocult+ which is non-specific. He is on ASA/Plavix at home. Plan EGD today to eval further. Associated Order(s): IP CONSULT TO HOSPITALIST [facility] CONSULTATION NOTE Patient Name: Tristin Powell : 1940 MR #: [id number] Admit Date: [id number] Physicians: Flash Lovelace MD (Family); Flynn Mann, Torres (Referring) Tristin Powell is a 78 y.o. male patient of Flash Lovelace MD with history of PAD, CAD and HTN that presented to [facility] with need for left foot partial amputation. Left foot gangrene Plan for left midfoot amputation on 10/08/18 Management per podiatry Pre-op clearance Planned low risk podiatric procedure tentatively scheduled 10/08/18. He has known history of CAD with 3 vessel CABG in 2017 Denies typical angina with no active heart failure. METS > 4; RCRI = 1 Low risk patient for low risk procedure May proceed with his upcoming surgery with a low risk of perioperative cardiovascular complications with EKG and echocardiogram PVD LLE angiogram 09/05/18 with occluded stent, infrapopliteal stenosis, and severe ASPVD No enovascular options therefore s/p left fem to peroneal bypass 09/07/[address] Sarabia Continue plavix and statin ASA on hold for surgery CAD S/p 3 vessel bipass in 2017 Continue plavix, Statin and BB ASA on hold for surgery HTN Continue BB Insomnia Holding home Ambien Can start trazodone if needed Medication Reconciliation: Verified Quality Measures DVT Prophylaxis: per primary Qureshi Catheter: none Disposition Discharge Location: TBD Estimated Discharge Date: D Outpatient Testing: none Chief Complaint: [facility] consulted by Flynn Mann DPM for medical management History of Present Illness: This is a 78 y/o male with past medical history of PAD, CAD and HTN that presented to [facility] with need for left foot partial amputation. According to pre-op records, patient has history of critical limb ischemia of the left foot and gangrenous left forefoot. Patient doing well with no acute complaints about his foot. Past Medical History: Past Medical History: Diagnosis Date Avascular necrosis of bone of hip (HCC) Claudication (HCC) Herpes zoster Hyperlipidemia Hypertension Prostate cancer (HCC) Vascular disease Past Surgical History: Past Surgical History: Procedure Laterality Date ANKLE SURGERY Left BYPASS PERONEAL FEMORAL Right 09/07/2018 Procedure: BYPASS PERONEAL FEMORAL, RIGHT SAPHENOUS VEIN HARVEST, COMPLETION ANGIOGRAM; Surgeon: Mohsen Sarabia MD; [facility] [facility] NEURO OR; Service: Cardiovascular CARDIAC CATHETERIZATION Left 09/05/2018 Procedure: Angio Lower Extremity; Surgeon: Ben Hahn MD; 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 Patient has no known allergies. Home Medications: Home medications were reviewed. ROS: All systems have been reviewed and are negative except as noted in HPI or below Constitutional:No fever, no weight loss Eyes:No diplopia ENT:No sinus drainage CV:No chest pain. No ankle swelling Resp:No dyspnea. No wheezing GI:No abdominal pain.No abdominal distention :No dysuria Neuro:No headache Integumentary:No skin rash. PHYSICAL EXAMINATION: BP 124/68 (BP Location: Left arm, Patient Position: Lying) Pulse 96 Temp 98.1 F (36.7 C) (Oral) Resp 14 Ht 6' 2 Wt 99.1 kg (218 lb 7.6 oz) SpO2 94% BMI 28.05 kg/m General Appearance: alert, well appearing, and in no acute distress. HEENT: Head- normocephalic; Eyes- PERRLA, EOMI; Ears- external auditory canals clear, hearing intact; Nose- no nasal discharge; Throat- oropharynx normal Cardiovascular: regular rate and rhythm; normal S1, S2; no murmurs, rubs, clicks or gallops; no peripheral edema. Respiratory: lungs clear to auscultation; without wheezes, rales or rhonchi Abdomen: soft, non-tender, non-distended; positive bowel sounds Neurological: alert, oriented x 3, normal speech; no focal findings or movement disorder noted Musculoskeletal: no significant deformity or tenderness to palpation Skin: normal coloration, texture and turgor; no lesions or eruptions Psych: normal mood and affect Laboratory and Additional Data Reviewed: Laboratory 10/05/18 10:38 AM Microbiology 10/05/18 10:38 AM Pathology 10/05/18 10:38 AM Radiology 10/05/18 10:38 AM Cardiology 10/05/18 10:38 AM Medications 10/05/18 10:38 AM Transcriptions 10/05/18 10:38 AM Expected Discharge/Time Spent: Based on current clinical information, the expected discharge date is: day after tomorrow (10/07/2018) COMPLEX DISCHARGE Date: 10/05/2018 Time: 6:48 AM Patient Name: Tristin Powell Date of : 1940 Sex: Male Patient Information Primary Caregiver: Self Accompanied by/Relationship: none Confucianist/Cultural Factors: none Legal Documentation Advance Directives: (none) Resuscitation Status: Resuscitate Resources Financial Resources: Other (Comment)([employer] Medicare insurance confirmed) Community Resources: Other (Comment)(PCP Dr. Lovelace [phone]) Discharge Plan Shared UM/CC and RN Source of Information: Patient Contact Phone Number: emergency contact Amina Zaidi p:[phone] Living Arrangements: Alone Support Systems: Family members Functional Status: Independent Type of Residence: Private residence(1 floor plan) Prior to Admission Home Care Services: Yes Type of Current Home Care Services: Home health care Current Agency Name: [facility] Current Home Equipment: Walker, Wheeled walker, Toilet seat hog operator, Tub/Shower chair Insurance Coverage for Prescriptions: Yes Anticipated Discharge Plan Anticipated HME: None Anticipated Home Care Needs: Home health care Anticipated Facility Type: Home care Potential for Readmission Potential for Readmission: No Discharge Readiness Expected Discharge Date: 10/09/18 Barriers to Discharge: Other (Comment)(OR on Monday (10/08/18) for left midfoot amputation ) Spoke with patient in the room. Patient states that family can transport him home when he is ready for discharge. Patient states that he is current with [facility] and would like to continue with the agency if he needs HH services for discharge. [facility] kristy Reid ph# [phone] / fx# [phone] Called agency and left a message requesting a return phone call to [phone] to confirm services. Faxed HH bundle to agency. Will need Amb HH order placed for physician to co-sign when final discharge needs are known. [id number] Received call from [facility]. Patient is current with them for PT/OT/RN services. in this encounter Machelle Cole RN - 09/05/2018 8:46 AM Machelle Robb RN - 09/05/2018 7:50 AM Donya More RN - 09/05/2018 7:15 AM Nasreen Castillo RN - 09/05/2018 1:29 AM EST ED Notes (unrecognized secti on and content) PATIENT TO CVL Patient sleeping at this time. To to cvl for yamile at 830. No distress noted pt appears to be sleeping comfortably. Patient is resting comfortably. Call light within reach. Patient updated on continued plan of care. Patient has been medicated for pain. Tolerating well, does desat to 89% room air while sleeping. 3 L NC added , patient sats 96%. Patient sleeping. Has daughter cartside. Call light in reach . Patient on monitor. Patient calls RN To room, states pain is not decreased. Patient moaning, rocking back and forth. Family concerned patient not receiving enough pain medication. Patient Is currently NPO. Call placed to covering hospitalist regarding pain control . See new orders. Associated Order(s): ECG 12-LEAD ED PROVIDER NOTE [facility] EMERGENCY DEPARTMENT NAME: Tristin Powell AGE: 78 y.o. : 1940 VISIT DATE: 09/04/2018 CSN: [id number] PCP: Flash Lovelace MD Chief Complaint Patient presents with Blood Clot HPI Patient transferred from [facility] for left leg peripheral arterial disease and claudication. Known peripheral arterial disease in bilateral lower extremities, told was 50% in the right leg and most of the left leg. Had significant foot pain on August 09, with angioplasty and stent placement at that time in the left popliteal. Started on Xarelto and aspirin. Patient reports his pain never really got significantly better but has been significantly worse now for the last 2 weeks, and more so in the last several days. Return to the outside facility on August 30, with significant worsening foot and leg pain, no palpable pulses. Had been admitted to the hospital, started on heparin drip. Foot is documented to have been cold, mottled vertically over the last 2 days. However he had been ambulating on the foot, can move his toe, states that he has some tingling but sensation is still there. Has been taking Dilaudid and Percocet for pain. Was scheduled for surgery today, however immediately prior to the patient and the family requested to be transferred to [place] for a second opinion. Accepted by the medicine service with cardiology consulting to the ED. Patient does report his pain had been fairly well controlled with his culmination medication but is reporting some increasing pain. Worse with movement. Largely of the top of his foot and states there is an area around his heel that is tender. Has tingling in his toes but notes that he can still feel his toes. He does not think that the discoloration of his foot is significantly different today than it was yesterday. No trauma. No chest pain or shortness of breath. Denies pain anywhere else. Past Medical History: Diagnosis Date Avascular necrosis of bone of hip (HCC) Claudication (HCC) Herpes zoster Hyperlipidemia Hypertension Prostate cancer (HCC) Vascular disease Past Surgical History: Procedure Laterality Date ANKLE SURGERY Left CARDIAC SURGERY STENT PLACEMENT History reviewed. No pertinent family history. Social History Social History Marital status: Spouse name: N/A Number of children: N/A Years of education: N/A Occupational History Not on file. Social History Main Topics Smoking status: Never Smoker Smokeless tobacco: Never Used Alcohol use No Drug use: No Sexual activity: Not on file Other Topics Concern Not on file Social History Narrative No narrative on file Previous Medications No medications on file No Known Allergies Review of Systems Constitutional: Negative for fever. Eyes: Negative for visual disturbance. Respiratory: Negative for shortness of breath. Cardiovascular: Negative for chest pain. Gastrointestinal: Negative for abdominal pain. Musculoskeletal: Positive for myalgias. Skin: Positive for color change. Allergic/Immunologic: Negative for immunocompromised state. Neurological: Negative for weakness. Tingling Hematological: Bruises/bleeds easily. Patient Vitals for the past 24 hrs: BP Temp Temp src Pulse Resp SpO2 Height Weight 09/04/181999 138/61 - - 79 13 95 % - - 09/04/18 1909 147/67 98.6 F (37 C) Oral 93 18 95 % 6' 2 111.6 kg (246 lb) Physical Exam Constitutional: He is oriented to person, place, and time. He appears well- developed. HENT: Head: Atraumatic. Mouth/Throat: Oropharynx is clear and moist. Eyes: Conjunctivae and EOM are normal. Neck: Neck supple. Cardiovascular: Normal rate and regular rhythm. Palpable L popliteal pulse, ? Faintly Dopplerable L PT but no DP with Doppler Pulmonary/Chest: Effort normal. No respiratory distress. Abdominal: Soft. There is no tenderness. Musculoskeletal: Mild dorsal edema b/l feet, compartments soft Neurological: He is oriented to person, place, and time. Skin: L foot cool and mottled Psychiatric: He has a normal mood and affect. His behavior is normal. Nursing note and vitals reviewed. ED COURSE Laboratory Results Results for orders placed or performed during the hospital encounter of 09/04/18 APTT Result Value Ref Range APTT 59 (H) 23 - 34 seconds Imaging Results XR Comparison Import Final Result Medications Ordered/Administered During ED Visit Medications heparin (porcine) 25,000 unit/250 mL(100 unit/mL) in D5W infusion (9 Units/kg/hr 111.6 kg (Order-Specific) Intravenous New Bag 09/04/181949) heparin bolus from bag 0-5,000 Units (0 Units Intravenous Not Given 09/04/182008) HYDROmorphone (DILAUDID) 0.5 mg/mL injection 0.5 mg (0.5 mg Intravenous Given 09/04/181952) EKG 12-lead Date/Time: 09/04/2018 8:16 PM Performed by: TIANA EM Authorized by: TIANA EM Interpreted by ED attending physician Rhythm: sinus rhythm BPM: 88 Ectopy comments: none Conduction: conduction normal ST Segments: ST segments normal QRS axis: normal normal CT interval normal QRS interval QT Interval: 474 MDM Patient transferred for evaluation of left lower extremity ischemia with known peripheral arterial disease as described above. Question if there is a very faintly dopplerable PT pulse but certainly no dopplerable DP. Vital signs stable. Heparin infusion was continued. Pain medication ordered. I discussed with Dr. Aguillon, who was aware of the patient from the transfer center. Recommended continuing the patient on heparin, admitting to the medicine service, and will be seen in consultation by the cardiology team. Will be admitted to the [facility] service as accepted in transfer. Clinical Impression: SNOMED CT(R) 1. Ischemic foot ISCHEMIC FOOT 2. PAD (peripheral artery disease) (HCC) PERIPHERAL VASCULAR DISEASE ED Disposition ED Disposition Condition Comment Hospitalize Phone call required?: No Tiana Em DO 09/04/182027 Patient resting comfortably on cot. Reports he has hx of claudication bilateral lower ext. Patient reports the pain in LLE has been going on Wks. Patient reports he did have surgery on this extremity in the past. This RN unable to obtain doppler pedal, pt pulses. LLE is cool red/blue color, patient reports numb Referral note: Call from Dann Chairez MD [phone] Contact Role: Referring Provider Entered By: KULDEEP Bailey Dr states patient admitted 08/30 for left claudication and threatened limb. States patient was seen 08/09 for left foot pain and had angioplasty with stent placement to left popliteal. Pt started on Xarelto and ASA and discharged. Returned / for increased left foot and leg pain. No pulses. Pt was to have gone for vascular procedure today, but patient and family are now requesting transfer to a larger hospital and are requesting [place]. Call to KULDEEP Reynolds [phone] Contact Role: Nurse Entered By: KULDEEP Bailey RN states pt and family requesting transfer for second opinion. Pt was to have had a stent placed by vascular surgeon Dr. Olea today, but pt and family declined and wants transferred. Pt is NPO. No DP pulses by palpation or doppler. Positive popliteal pulse noted. Left foot is cold, blue/reddish color for the past 2 days. Pt able to move foot and has been ambulatory at home. Heparin drip infusing. Pt taking Dilaudid and Percocet around the clock per RN. No BM for 6 days. Bed: 93 Expected date: 09/04/18 Expected time: 6:54 PM Means of arrival: Ambulance Comments: Life Support/ referral SHERRY/ [facility] in this encounter Plan of Care - China Stern RN - 09/11/2018 1:20 AM ESTOp Note - Mohsen Sarabia MD - 09/09/2018 2:42 PM ESTBrief Op Note - Mohsen Sarabia MD - 09/08/2018 1:11 AM EST Miscellaneous Notes (unrecog nized section and content) Partially Met Pain Manage acute pain 09/11/2018115 - Partially Met by China Stern RN Note Patient complaints of left foot pain. Burning/sharp/intermittent. Patient with PVD history, surgery 09/07. PRN pain medications given per order. Foot elevated on pillow. Patient states some relief of pain with interventions. Will continue to monitor. Pressure Ulcer - Risk of Absence of pressure ulcer 09/11/2018115 - Partially Met by China Stern RN Note Patient able to turn self in bed. Sat on side of bed earlier in shift. Ambulates with x2 assistance, walker, gaitbelt. Trouble bearing weight on left. No evidence of pressure ulcer at this time. Infection - Risk of, Surgical Site Infection Absence of surgical site infection 09/11/2018115 - Partially Met by China Stern RN Note Multiple surgical sites from 09/07. 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 Intact, approximated incisions. Temperature WNL. Will continue to monitor. TRISTIN POWELL [id number] 1940 DATE 09/07/2018 OPERATIVE REPORT SURGEON MOHSEN SARABIA MD IRS AGENT BEN JIANG MD PREOPERATIVE DIAGNOSIS Subacute limb ischemia of the left lower extremity. POSTOPERATIVE DIAGNOSIS Subacute limb ischemia of the left lower extremity. PROCEDURE PERFORMED Left femoral to peroneal bypass using contralateral reverse greater saphenous vein. IRS AGENT There was no qualified resident available to assist with the surgery. ANESTHESIA General endotracheal. INDICATIONS FOR PROCEDURE The patient is a 78-year-old man with minimal medical comorbidities and a known popliteal aneurysm of the left leg, which had been treated previously with an endovascular stent. Unfortunately, the stent and aneurysm have thrombosed, and the patient now has compromised runoff. He presented to us with a several week history of pain in the left foot and early gangrenous changes of the toes. He was having extreme rest pain. He had previously undergone an angiogram, which showed a peroneal target in the lower leg, which basically occluded at the ankle. There was very poor runoff onto the foot. I spoke with the family at length regarding the high-risk nature of this bypass, however, the patient was very functional prior to this event and very much wanted to try for limb salvage. DESCRIPTION OF PROCEDURE The patient was identified in the preoperative holding area where the risks, benefits, and alternatives were explained, and he wished to proceed. He was, therefore, taken to the operating room and placed on the table in supine position with all pressure points padded where general endotracheal anesthesia was induced. Antibiotics were administered, and an attending time-out was performed. His bilateral legs and groins were then prepped and draped in the usual sterile fashion. Dr. Jiang and myself worked simultaneously. Dr. Jiang began by harvesting the vein from the right leg, which was known to be of adequate caliber based on preoperative vein mapping. He began by making a longitudinal incision in the right groin which was carried through the subcutaneous tissues using electrocautery until the saphenous vein was identified. This was traced down in a caudal direction, extending the incision as we went, circumferentially dissecting the vein and taking care to clip and ligate all the small branches. A small skip incision was made, one in the thigh and one near the knee, and, ultimately, the entire vein was dissected down to the mid-calf. Once it was completely free, it was ligated at the saphenofemoral junction. The vein was then inspected, and several small repair stitches were needed in the vein, however, it appeared healthy, and it was passed off the field. Simultaneously, the left-sided targets were exposed. The common femoral artery was exposed by making an oblique incision in the left groin. It was carried down through the subcutaneous tissues using electrocautery. The inguinal ligament was identified, and the femoral sheath was opened sharply. The common femoral artery was identified and circumferentially dissected. The SFA and profunda arteries were controlled separately using silastic vessel loops. The artery was soft healthy at this level. Finally, the peroneal target was identified by making a medial longitudinal calf incision approximately 8 cm long. This was again carried down through subcutaneous tissues using electrocautery. The muscle fascia was incised, and the gastrocnemius muscle was retracted posteriorly. The soleus muscle was taken down off the tibial attachment through multiple crossing veins at this level that were clipped and ligated. The posterior tibial artery was identified and then, as we carried the dissection more laterally, the peroneal artery was identified. This was dissected free from the surrounding veins proximally and distally. It appeared soft and of good caliber. We then elected to create our tunnel from the calf incision. A 6 mm tunneling device was used to create an anatomic tunnel on the lower incision up to the groin. At this point, the patient was systemically heparinized with 10,000 units of heparin. Vascular clamps were used to control the common femoral, as well as the profunda and superficial femoral arteries. The common femoral artery was opened using an 11 blade, and the arteriotomy extended using Perales scissors. The vein was then re-introduced onto the field, and in a reverse fashion, the vein was spatulated, sewn into place using a 5-0 Prolene in a running fashion. At this point, the vascular clamps were removed and the vein flushed. At this point, a marking pen was used to juan the anterior surface of the vein graft, which was then passed through the tunnel down to the lower incision, taking care not to create any twists or kinks. At this point, a plastic bulldog was placed on the vein graft, and a pneumatic tourniquet was placed around the thigh. The leg was exsanguinated and the tourniquet inflated to 250 mmHg. Arteriotomy was made on the peroneal target sharply using an 11 blade. This was extended proximally and distally using Perales scissors. The vein graft was then trimmed to the appropriate size and sewn into place using a 6-0 Prolene in a parachute running fashion. Prior to placing our final stitches, the tourniquet was released, and the vein graft flushed through. Our final stiches were then placed and the suture tied down. The suture line appeared hemostatic and did not need any repair stitches. At this point, there was a good signal in the peroneal artery distal to our vein graft, which disappeared with clamping of the vein graft. We did elect to shoot an angiogram to identify the runoff onto the foot, so a 22 gauge butterfly needle was placed in the common femoral artery above our vein graft, and angiographic images were obtained from the groin to the foot. The vein graft appeared patent with brisk flow and no kinking or stenosis. It quickly filled the peroneal artery. It was difficult to opacify the vessels onto the foot, however, there did appear to be some collateral filling of the posterior tibial artery. At this point, we felt there was nothing more that we could do from a surgical perspective so 50 of protamine was administered, and hemostasis was achieved in each of the wounds, which were then closed in multiple layers of 2-0 and 3-0 Vicryl, and all the skin incisions were closed using 4-0 Monocryl in a running subcuticular fashion. Sterile dressings were applied, and the patient was awoken and taken to the PACU in good condition. He tolerated the procedure well without complication. All sponge and needle counts were correct at the conclusion of the case. There were no specimens. Estimated blood loss was 250 cc. MOHSEN SARABIA MD D 09/09/2018 10:46 [id number] T 09/09/2018 14:36 JPW/MODL Brief Post Operative Note Patient Name: Tristin Powell : 1940 (78 y.o.) Date of Service: 09/04/2018 - 09/08/2018 CSN: [id number] Procedure(s): BYPASS PERONEAL FEMORAL, RIGHT SAPHENOUS VEIN HARVEST, COMPLETION ANGIOGRAM Pre-Operative Diagnoses: * acute left lower extremity ischemia Post-Operative Diagnoses: * Same as Pre-Op Diagnosis Surgeon(s) and Role: * Mohsen Sarabia MD - Primary * Ben Jiang MD - Assisting Anesthesiologist: Natalie Vieira MD; Andrew Topete MD Stranding Supervisor: Megan Arguelles RN; Odessa Cuellar RN Stranding Supervisor Relief: Sakshi Silvestre RN; Ben Calvillo RN; Niesha Levin RN Scrub Person: ST Ricki Scrub Person Assist: ST Patrice Nurse Float: Andrew Pappas RN Operative findings: L Fem to peroneal Bypass using contralateral GSV, dopp peroneal and PT at ankle at conclusion Intra and immediate post-operative complications: none Type of anesthesia used: General Estimated blood loss: 150 mL Estimated urine output: 700 mL Specimen(s): * No specimens in log * Implant(s): Implant Name Type Inv. Item Serial No. Sewer Connector Lot No. [id number] No. Used Action HEMOSTAT 2 X 4IN SURGICEL FIBRILLAR - [id number] HEMOSTAT 2 X 4IN SURGICEL FIBRILLAR ETHICON [id number] Left 1 Implanted Drain(s): Urethral Catheter Non-latex;Straight-tip 16 Fr. (Active) Wound(s): Wound (Inpatient and Home Care Only) 09/05/18 Leg Left (Active) Dressing Status Other (comment) 09/07/2018 8:20 AM Wound Bed Characteristics Dry 09/07/2018 8:20 AM Drainage Amount Scant 09/07/2018 8:20 AM Drainage Description Clear 09/07/2018 8:20 AM Odor None 09/07/2018 8:20 AM Primary/Secondary Dressing Other (Comment) 09/07/2018 8:20 AM Incision 09/08/18 Leg Left;Right (Active) Wound Bed Characteristics MARYANN (Unable to assess) 09/08/2018 12:55 AM Edna-wound Assessment Temperature WNL;Dry;Intact 09/08/2018 12:55 AM Drainage Amount None 09/08/2018 12:55 AM Dressing Status Dry;Intact 09/08/2018 12:55 AM Primary Dressing Coverlet 09/08/2018 12:55 AM Incision 09/08/18 Groin Left;Right (Active) Wound Bed Characteristics MARYANN (Unable to assess) 09/08/2018 12:55 AM Edna-wound Assessment Temperature WNL;Dry;Intact 09/08/2018 12:55 AM Drainage Amount None 09/08/2018 12:55 AM Dressing Status Dry;Intact 09/08/2018 12:55 AM Primary Dressing Coverlet 09/08/2018 12:55 AM Mohsen Sarabia MD 09/08/2018 1:11 AM 13ml of hydromorphone wasted.Waste witnessed by Carson Gonzalez(Charged nurse). OCCUPATIONAL THERAPY VISIT VARIANCE NOTE Attempted to see patient at this time, but unable secondary to: OT Visit Variance: Awaiting Medical Clearance (Pt is surgery today for bypass ischemic foot). Will follow up as appropriate. PHYSICAL THERAPY VISIT VARIANCE NOTE Attempted to see patient at this time, but unable secondary to: PT Visit Variance: Awaiting Medical Clearance (plan for OR for LE bypass). Will follow up as appropriate. Associated Problem(s): Pain of left lower extremity -Presented to [facility] 09/04/2018 as a transfer from [place] for second opinion regarding left lower extremity pain and discoloration that was present two days prior to admit there on 08/30. s/p LLE angio with stent placement 08/09 -NARx reviewed, patient prescribed Gabapentin 200 mg TID (last filled #540 tabs for 90 days 07/12/18) and Percocet 5/325 mg (#28 tabs for 7 days 08/23/18) written by Dr. Flash Lovelace -Patient found lying in bed, writhing in pain -Reports pain is uncontrolled with LAGGING MACHINE OPERATOR Dilaudid pump, and pain does not decrease even after he presses his button -Bypass Peroneal femoral, right saphenous vein harvest, completion angiogram on right planned for today (09/07/18) with Dr. Sarabia, still pending -Discontinue IV Dilaudid- pt feels [...] paradise Fernandez RN -Please call with questions OCCUPATIONAL THERAPY VISIT VARIANCE NOTE Attempted to see patient at this time, but unable secondary to: OT Visit Variance: Unable to Participate (await ischemic limb work-up). Will follow up as appropriate. Please stop heparin Peripheral Vascular Sign-Off Conditions Treated: Critical Limb Ischemia (PAD) Procedures Performed (This Admission): Diagnostic angiogram. Recommended Discharge Medications: ASA 81 mg daily clopidogrel 75 mg daily heparin Discharge Plan/Procedure: CTS consult for tibial bypass Follow-up Appointments: CTS consult for tibial bypass Please call [phone] for questions (available 20/03) Discussed pt with Dr. Guerra, set pt for a LLE angiogram due to occluded LLE stent. Consent signed and placed at Charge nurses desk. Risks and benefits reviewed with pt. Pt agrees to proceed with scheduled procedure Associated Problem(s): Class 1 obesity with body mass index (BMI) of 31.0 to 31.9 in adult Patient with BMI greater than 30. Plan: Patient with BMI >30. According to the NIH and USPSTF, it is recommended that the patient lose weight utilizing a combination of dietary (reduction in calories of 500 to 1,000 kcal/day) and behavioral therapies, in addition to increasing physical activity (30 to 45 minutes for 3 to 5 days per week) for a goal BMI <30. Associated Problem(s): Essential hypertension Patient with history of hypertension. Blood pressure at this time 132/62. Plan: Continue medications as prescribed. Associated Problem(s): Hypercholesteremia Patient with history of hypercholesteremia. Plan: Continue high intensity statin medication Risk factor modification. Associated Problem(s): Coronary artery disease involving coronary bypass graft of [place] heart without angina pectoris Patient with remote coronary artery bypass grafting to 3 vessels. Patient denies chest pain at this time. Associated Problem(s): Critical lower limb ischemia Pt s/p LLE angiogram with Dr Hahn who feels that the pt has no further endovascular options. He has consulted Dr. Sarabia for a possible tibial bypass. Pt s/p LLE critical limb ischemia Deann class 4 rest pain with distal discoloration to his toes. Pt is s/p L pop angioplasty with stent placement 08/09 at [facility] in [place], [place]. Pt was placed on Xarelto and [...] high intensity statin medication. Will sign off in this encounter Reviewed AVS and CDC opioid handout with patient and answered all questions. Provide paperwork packet including paper prescriptions for percocet, lovenox and doxcycline. Helped patient dress and pack all belongings. Wheeled patient and all belongings to front [facility] to daughter's vehicle. Daughter to transport patient to the [facility] at [place]. Called report to Chelsea Salinas RN at the [facility] [place]. Patient to follow-up GI outpatient. Patients pain well controlled on percocet. Patient having bowel movements and voiding spontaneously. S/P EGD 10/10-Z-line irregular, at the gastroesophageal junction. Biopsied. Normal stomach. Normal examined duodenum. Biopsied. Impression: - Await pathology results. Should not delay hospital discharge. Will notify patient if abnormal - He had a recent failed colonoscopy due to a poor prep and has been rescheduled in his hometown to have a repeat. - OK to re-start ASA/Plavix. - Will sign off, call if needed. POC went over and updated, will continue to monitor. The patient was seen and evaluated at the bedside, discussed with the resident. The note was reviewed and agree with the findings and the plan. Patient is s/p day #1 left midfoot amputation and DEREK with closed suction drain. Will plan to pull drain today. PT/OT to evaluate for SNF upon discharge. Will follow with Dr. Mann as out-patient at [facility] at [phone] next 10-18-18. Flynn Mann DPM, FACFAS Electronically signed by the above physician 10/09/18 POC went over and updated, will continue to monitor. TRISTIN POWELL [id number] 1940 DATE 10/08/2018 OPERATIVE REPORT SURGEON FLYNN MANN DPM IRS AGENT OFE WOOD DPM, RESIDENT ANESTHESIOLOGIST MACHELLE SARABIA MD PREOPERATIVE DIAGNOSIS Left foot gangrene. POSTOPERATIVE DIAGNOSIS Left foot gangrene. PROCEDURES 1. Left midfoot amputation at [facility] level 2. Left Tendo-Achilles lengthening 3. Left lower extremity posterior splint Diaz compression dressing application ANESTHESIA General. HEMOSTASIS Ankle tourniquet, not inflated throughout case. ESTIMATED BLOOD LOSS 150 mL. MATERIALS One closed suction drain. INJECTABLES 20 cc of 0.5% Marcaine plain. COMPLICATIONS None. INDICATIONS FOR PROCEDURE The patient is a 78-year-old patient of Dr. Mann, presenting with left foot gangrene and dysvascular changes to the left forefoot. The patient has exhausted all conservative measures at this time and has elected to undergo the above-mentioned surgical intervention. Risks, benefits, indications, and complications were discussed at length with the patient. Consent was signed and placed in the chart. PROCEDURE IN DETAIL Patient was brought from the preoperative holding area to the OR and placed on the OR table in a secure supine position. The above-mentioned anesthesia was administered per the anesthesia team. A time-out was performed and all were in agreement. The left lower extremity was then prepped and draped, utilizing a normal sterile fashion and a Betadine Scrub. Procedure #1: Tendo-Achilles lengthening. Attention was directed to the posterior aspect of the left foot where the Achilles tendon was visualized. Three stab incisions were made along the Achilles tendon, utilizing 2 medial stab incisions and 1 laterally. On active dorsiflexion of the ankle, it was noted that adequate lengthening was achieved. The skin was then closed with 4-0 nylon. Procedure #2: Left mid foot amputation. Attention was then directed to the left mid foot where a 10 blade was utilized to make incisions circumferentially around the midfoot. The incision was carried down through subcutaneous tissue and down to bone. At this point, the soft tissue was then reflected off the mid foot to visualize the midfoot joints. At this time, the midfoot was disarticulated at the navicular cuneiform joint and the 4th and 5th tarsometatarsal joint. Once the midfoot was removed, the cuboid was then sectioned and removed. It was noted that the partial resection of the cuboid was flush with the talonavicular joint. At this time, any bleeders were either cauterized or tied off using Vicryl. The plantar flap was then debulked and it was noted to have adequate skin coverage to flap dorsally. Once adequate hemostasis was achieved, the flap was then closed dorsally with Vicryl for deep closure and nylon was used to close the skin. A close suction drain was then placed in the left foot. The incision site was then dressed with Betadine-soaked Adaptic, 4 x 4 gauze, ABD pad, Kerlix, and Webril and followed by a well-padded posterior splint. The patient tolerated the procedure and anesthesia well without complications. Patient was transferred from the OR to PACU with vital signs stable and vascular status unchanged to the left foot. The patient is to be readmitted to the floor per PACU protocol. The patient will be nonweightbearing to the left lower extremity. Dictated by OFE WOOD DPM, RESIDENT FLYNN MANN DPM D 10/08/2018 08:53 [id number] T 10/08/2018 09:15 /ADAL Brief Post Operative Note Patient Name: Tristin Powell : 1940 (78 y.o.) Date of Service: 10/08/2018 CSN: [id number] Procedure(s): 1. TENDO ACHILLES LENGTHENING, LEFT 2. LEFT MIDFOOT AMPUTATION Pre-Operative Diagnoses: * LEFT FOOT GANGRENE Post-Operative Diagnoses: * SAME Surgeon(s) and Role: * Flynn Mann DPM - Primary * Ofe Wood DPM - Resident - Assisting Anesthesiologist: Machelle Sarabia MD SPRINKLER DRIVER: Nikia Mcdermott CRNA Stranding Supervisor: Sussy Hoskins RN Relief Scrub: Wagner Qureshi RN Scrub Person: ST Gisselle Anesthesia Specialist: Gt Zaldivar Operative findings: Dry gangrene to left forefoot Intra and immediate post-operative complications: none Type of anesthesia used: General Estimated blood loss: 150 mL Estimated urine output: 0 mL Specimen(s): ID Type Source Tests Collected by Time Destination A : Left foot to pathology Tissue Amputation, Foot, Left TISSUE EXAM Flynn Mann DPM 10/08/2018 0743 Implant(s): * No implants in log * Drain(s): Closed/Suction Drain Left Foot 10 Fr. (Active) Wound(s): Wound (Outpatient Only) 09/20/18 1 Foot Left (Active) Wound Image 10/04/2018 1:00 PM Wound Length (cm) 11 cm 10/04/2018 1:00 PM Wound Width (cm) 11 cm 10/04/2018 1:00 PM Wound Depth (cm) 0.1 cm 10/04/2018 1:00 PM Wound Surface Area (cm^2) 121 cm^2 10/04/2018 1:00 PM Wound Volume (cm^3) 12.1 cm^3 10/04/2018 1:00 PM Area % Change -35.98 10/04/2018 1:00 PM Volume % Change 0 10/04/2018 1:00 PM Wound Encounter Subsequent 10/04/2018 1:00 PM Wound Progress Improving 10/04/2018 1:00 PM Pressure Injury Stage 1 10/08/2018 5:30 AM Non-staged Wound Description Eschar covered 10/04/2018 1:00 PM Drainage Amount None 10/07/2018 8:03 PM Odor None 10/07/2018 8:03 PM Wound Margin Undefined 10/04/2018 1:00 PM Adherent Yellow Slough % None 10/04/2018 1:00 PM Moist Yellow Slough % None 10/04/2018 1:00 PM Dry Black Eschar % 76-100% 10/04/2018 1:00 PM Moist Black Eschar % None 10/04/2018 1:00 PM Epithelialization % None 10/04/2018 1:00 PM Granulation % None 10/04/2018 1:00 PM Exposed Structure None 10/04/2018 1:00 PM Wound Bed Characteristics MARYANN (Unable to assess) 10/07/2018 8:29 AM Wound Closure Other (Comment) 10/07/2018 8:03 PM Edna-wound Assessment Temperature WNL 10/07/2018 8:03 PM Treatments Not Applicable 10/04/2018 1:00 PM Hemostasis Not applicable 10/04/2018 1:00 PM Cleansed Not Applicable 10/04/2018 1:00 PM Primary Dressing Betadine 10/04/2018 1:00 PM Secondary Dressing Gauze roll;Dry gauze dressing 10/07/2018 8:03 PM Compression Dressing Other (Comment) 10/05/2018 9:00 AM Wound (Inpatient and Home Care Only) 09/05/18 Leg Left (Active) Wound (Inpatient and Home Care Only) Foot (mid);Foot (proximal);Fourth Toe;Great Toe Anterior;Left;Plantar (Active) Incision 09/08/18 Leg Left;Right (Active) Incision 09/08/18 Groin Left;Right (Active) Incision 10/08/18 Foot Left (Active) Ofe Wood DPM 10/08/2018 8:37 AM POC went over and updated, will continue to monitor. Patient was labeled as pre-op but transport was cancelled for patient not ready . (6:45am), 10-06-18. TW. Will try again later today if able or Monday. in this encounter Care Teams (unrecognized sec tion and content) Team Status: Active Member Role Status Dates Flash Lovelace MD Primary Care Provider Active Team Status: Inactive Member Role Status Dates Flash Lovelace MD Primary Care Provider Active Haven Malcolm NP-C Attending Provider Active Service Advisor Relationship Specialty Start Date End Date Flash Lovelace MD [address] [place], [place] [id number] PCP - General Family Medicine 07/31/18 Service Advisor Relationship Specialty Start Date End Date Flash Lovelace MD [address] [place] [address] PCP - General Family Medicine 07/31/18 Service Advisor Relationship Specialty Start Date End Date Flash Lovelace MD [address] [place] [address] PCP - General Family Medicine 09/04/18 Service Advisor Relationship Specialty Start Date End Date Flash Lovelace MD [address] [place] [address] PCP - General Family Medicine 07/31/18 Service Advisor Relationship Specialty Start Date End Date Flash Lovelace MD [address] [place] [address], [place] [address] PCP - General Family Medicine 09/04/18 Service Advisor Relationship Specialty Start Date End Date Flash Lovelace MD [address] [place] [address], [place] [address] PCP - General Family Medicine 09/04/18 Service Advisor Relationship Specialty Start Date End Date Flash Lovelace MD [address] [place] [address], [place] [address] PCP - General Family Medicine 09/04/18 Service Advisor Relationship Specialty Start Date End Date Flash Lovelace MD [address] [place] [address], [place] [address] PCP - General Family Medicine 09/04/18 Service Advisor Relationship Specialty Start Date End Date Flash Lovelace MD [address] [place] [address], [place] [address] PCP - General Family Medicine 09/04/18 Team Status: Inactive Member Role Status Dates Flash Lovelace MD Primary Care Provider Active Cristian Beaver MD Attending Provider Active Service Advisor Relationship Specialty Start Date End Date Flash Lovelace MD [address] [place] [address], [place] [address] PCP - General Family Medicine 09/04/18 Service Advisor Relationship Specialty Start Date End Date Flash Lovelace MD [address] [place] [address], [place] [address] PCP - General Family Medicine 07/31/18 Service Advisor Relationship Specialty Start Date End Date Flash Lovelace MD [address] [place] [address], [place] [address] PCP - General Family Medicine 07/31/18 Service Advisor Relationship Specialty Start Date End Date Flash Lovelace MD [address] [place] [address] PCP - General Family Medicine 09/04/18 Service Advisor Relationship Specialty Start Date End Date Flash Lovelace MD [address] [place] [address] PCP - General Family Medicine 09/04/18 Service Advisor Relationship Specialty Start Date End Date Flash Lovelace MD [address] [place] [address], [place] [address] PCP - General Family Medicine 09/04/18 System, Provider Not In Sheet Metal Apprentice 11/09/22 Service Advisor Relationship Specialty Start Date End Date Flash Lovelace MD [address] [place] [address] PCP - General Family Medicine 09/04/18 System, Provider Not In Sheet Metal Apprentice 11/09/22 Service Advisor Relationship Specialty Start Date End Date Flash Lovelace MD [address] [place] [address] PCP - General Family Medicine 09/04/18 System, Provider Not In Sheet Metal Apprentice 11/09/22 Service Advisor Relationship Specialty Start Date End Date Flash Lovelace MD [address] [place] [address] PCP - General Family Medicine 07/31/18 Service Advisor Relationship Specialty Start Date End Date Flash Lovelace MD [address] [place] [address] PCP - General Family Medicine 07/31/18 Team Status: Inactive Member Role Status Dates Flash Lovelace MD Primary Care Provider Active S tart: October 12, 2023 End: October 12, 2023 Cristian Beaver MD Attending Provider Active S tart: October 12, 2023 End: October 12, 2023 Team Status: Active Member Role Status Dates Flash Lovelace MD Primary Care Provider Active S tart: October 12, 2023 Cristian Beaver MD Attending Provider, Other Provider Active Start: October 12, 2023 Team Status: Inactive Member Role Status Dates Flash Lovelace MD Primary Care Provider Active S tart: October 17, 2023 End: October 17, 2023 Eliezer Carvalho MD Attending Provider Active Start: October 17, 2023 End: October 17, 2023 Duke Dunbar MD Referring Provider Active Start: October 17, 2023 End: October 17, 2023 Service Advisor Relationship Specialty Start Date End Date Flash Lovelace MD [address] [place] [address] PCP - [employer] 08/28/17 Flash Lovelace MD [address] [place] [address] PCP - General Family Medicine 03/09/23 Service Advisor Relationship Specialty Start Date End Date Flash Lovelace MD [address] [place] [address] PCP - [employer] 08/28/17 Flash Lovelace MD [address] [place] [address] PCP - General Family Medicine 03/09/23MondayMary LPN [address] [place] [address] Licensed Practical Nurse Family Medicine 06/21/24 Service Advisor Relationship Specialty Start Date End Date Flash Lovelace MD [address] [facility] [address] [place] [address] PCP - Hum[employer] 08/28/17 Flash Lovelace MD [address] [place] [address] PCP - General Family Medicine 03/09/23MondayMary LPN [address] [place] [address] Licensed Practical Nurse Family Medicine 06/21/24 Service Advisor Relationship Specialty Start Date End Date Flash Lovelace MD [address] [place] [address] PCP - General Family Medicine 09/04/18 System, Provider Not In Sheet Metal Apprentice 11/09/22 Service Advisor Relationship Specialty Start Date End Date Flash Lovelace MD [address] [place] [address] PCP - Hum[employer] 08/28/17 Flash Lovelace MD [address] [place] [address] PCP - General Family Medicine 03/09/23 Service Advisor Relationship Specialty Start Date End Date Flash Lovelace MD [address] [place] [address] PCP - Hum[employer] 08/28/17 Flash Lovelace MD [address] [place] [address] PCP - General Family Medicine 03/09/23 Service Advisor Relationship Specialty Start Date End Date Flash Lovelace MD [address] [place] [address] PCP - Hum[employer] 08/28/17 Flash Lovelace MD [address] [place] [address] PCP - General Family Medicine 03/09/23Monday, Mary, S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 [address] [place] [address] Licensed Practical Nurse Family Medicine 06/21/24 Service Advisor Relationship Specialty Start Date End Date Flash Lovelace MD [address] [place] [address] PCP - General 08/15/13 Service Advisor Relationship Specialty Start Date End Date Flash Lovelace MD [address] [place] [address] PCP - General 08/15/13 Service Advisor Relationship Specialty Start Date End Date Flash Lovelace MD [address] [place] [address] PCP - Hum[employer] 08/28/17 Flash Lovelace MD [address] [place] [address] PCP - General Family Medicine 03/09/23Monday, ISABELLA Hernandez [address] [place] [address] Licensed Practical Nurse Family Medicine 06/21/24 Service Advisor Relationship Specialty Start Date End Date Flash Lovelace MD [address] [place] [address] PCP - Hum[employer] 08/28/17 Flash Lovelace MD [address] [place] [address] PCP - General Family Medicine 03/09/23 Service Advisor Relationship Specialty Start Date End Date Flash Lovelace MD [address] [place] [address] PCP - Hum[employer] 08/28/17 Flash Lovelace MD [address] [place] [address] PCP - General Family Medicine 03/09/23 Service Advisor Relationship Specialty Start Date End Date Flash Lovelace MD [address] [place] [address] PCP - Humana 08/28/17 Flash Lovelace MD [address] [place] [address] PCP - General Family Medicine 03/09/23 Service Advisor Relationship Specialty Start Date End Date Flash Lovelace MD [address] [place] [address] PCP - General Family Medicine 09/04/18 System, Provider Not In Sheet Metal Apprentice 11/09/22 Service Advisor Relationship Specialty Start Date End Date Flash Lovelace MD [address] [place] [address] PCP - Hum[employer] 08/28/17 Flash Lovelace MD [address] [place] [address] PCP - General Family Medicine 03/09/23MondayMary LPN [address] [place] [address] Licensed Practical Nurse Family Medicine 06/21/24 Service Advisor Relationship Specialty Start Date End Date Flash Lovelace MD [address] [place] [address] PCP - Humana 08/28/17 Flash Lovelace MD [address] [place] [address] PCP - General Family Medicine 03/09/23 Lorraine Morgan RN Licensed Practical Nurse Family Medicine 10/04/24 Service Advisor Relationship Specialty Start Date End Date Flash Lovelace MD [address] [place] [address] PCP - Hum[employer] 08/28/17 Flash Lovelace MD [address] [place] [address] PCP - General Family Medicine 03/09/23 Elaine Saab S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 11/15/24 Service Advisor Relationship Specialty Start Date End Date Flash Lovelace MD [address] [place] [address] PCP - Hum[employer] 08/28/17 Flash Lovelace MD [address] [place] [address] PCP - General Family Medicine 03/09/23 Elaine Saab LPN 11/15/24 Service Advisor Relationship Specialty Start Date End Date Flash Lovelace MD [address] [place] [address] PCP - Hum[employer] 08/28/17 Flash Lovelace MD [address] [place] [address] PCP - General Family Medicine 03/09/23 Elaine Saab [facility] 11/15/24 Service Advisor Relationship Specialty Start Date End Date Flash Lovelace MD [address] [place] [address] PCP - Hum[employer] 08/28/17 Flash Lovelace MD [address] [place] [address] PCP - General Family Medicine 03/09/23 Elaine Saab S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 11/15/24 Service Advisor Relationship Specialty Start Date End Date Flash Lovelace MD [address] [place] [address] PCP - Hum[employer] 08/28/17 Flash Lovelace MD [address] [place] [address] PCP - General Family Medicine 03/09/23 Elaine Saab [facility] 11/15/24 Service Advisor Relationship Specialty Start Date End Date Flash Lovelace MD [address] [place] [address] PCP - Hum[employer] 08/28/17 Flash Lovelace MD [address] [place] [address] PCP - General Family Medicine 03/09/23 Elaine Saab [facility] [address] [place] [address] 11/15/24 Team Status: Inactive Member Role Status Dates Flsah Lovelace MD Primary Care Provider Active S tart: March 11, 2025 End: March 11, 2025 Cristian Beaver MD Attending Provider Active S tart: March 11, 2025 End: March 11, 2025 Team Status: Inactive Member Role Status Dates Flash Lovelace MD Primary Care Provider Active S tart: March 12, 2025 End: March 12, 2025 Cristian Beaver MD Attending Provider Active S tart: March 12, 2025 End: March 12, 2025 Service Advisor Relationship Specialty Start Date End Date Flash Lovelace MD [address] [place] [address] PCP - General Family Medicine 09/04/18 System, Provider Not In Sheet Metal Apprentice 11/09/22 Service Advisor Relationship Specialty Start Date End Date Flash Lovelace MD [address] [place] [address] PCP - General Family Medicine 09/04/18 System, Provider Not In Sheet Metal Apprentice 11/09/22 Service Advisor Relationship Specialty Start Date End Date Flash Lovelace MD [address] [place] [address] PCP - General Family Medicine 09/04/18 System, Provider Not In Sheet Metal Apprentice 11/09/22 Service Advisor Relationship Specialty Start Date End Date Flash Lovelace MD [address] [place] [address] PCP - General Family Medicine 09/04/18 System, Provider Not In Sheet Metal Apprentice 11/09/22 Service Advisor Relationship Specialty Start Date End Date Flash Lovelace MD [address] [place] [address] PCP - [employer] 08/28/17 Flash Lovelace MD [address] [place] [address] PCP - General Family Medicine 03/09/23 Elaine Saab LPN [address] [place] [address] 11/15/24 Service Advisor Relationship Specialty Start Date End Date Flash Lovelace MD [address] [place] [address] PCP - General Family Medicine 09/04/18 System, Provider Not In Sheet Metal Apprentice 11/09/22 Service Advisor Relationship Specialty Start Date End Date Flash Lovelace MD [address] [place] [address] PCP - Hum[employer] 08/28/17 Flash Lovelace MD [address] [place] [address] PCP - General Family Medicine 03/09/23 Elaine Saab LPN [address] [place] [address] 11/15/24 Service Advisor Relationship Specialty Start Date End Date Flash Lovelace MD [address] [place] [address] PCP - [employer] 08/28/17 Flash Lovelace MD [address] [place] [address] PCP - General Family Medicine 03/09/23 Elaine Saab LPN [address] [place] [address] 11/15/24 Service Advisor Relationship Specialty Start Date End Date Flash Lovelace MD [address] [place] [address] PCP - [employer] 08/28/17 Flash Lovelace MD [address] [place] [address] PCP - General Family Medicine 03/09/23 Elaine Saab LPN [address] [place] [address] 11/15/24 Service Advisor Relationship Specialty Start Date End Date Flash Lovelace MD [address] [place] [address] PCP - [employer] 08/28/17 Flash Lovelace MD [address] [place] [address] PCP - General Family Medicine 03/09/23 Elaine Saab LPN [address] [facility] [address] [place] [address] 11/15/24 Service Advisor Relationship Specialty Start Date End Date Flash Lovelace MD [address] [facility] [address] [place] [address] PCP - [employer] 08/28/17 Flash Lovelace MD [address] [facility] [address] [place] [address] PCP - General Family Medicine 03/09/23 Elaine Saab LPN [address] [facility] [address] [place] [address] 11/15/24 Scheduled Active and Recently Administ ered Medications (unrecognized section and content) Medication Order 01/19/2022 01/20/2022 01/21/2022 acetaminophen (TYLENOL) tablet 975 mg (COMPLETED) 975 mg, Oral, Once, On Mon01/18/22 at 2330, For 1 dose 0026 (Given - Provider: Mary Robles RN) aspirin chewable tablet 81 mg 81 mg, Oral, Daily, First dose on Mon01/19/22 at 0900 0951 (Given - Provider: Maude Vallejo RN) 0932 (Given - Provider: Rafaela Negron RN) 0950 (Given - Provider: Alma Delia Page RN) atorvastatin (LIPITOR) tablet 40 mg 40 mg, Oral, Daily, First dose on Mon01/19/22 at 0900 0951 (Given - Provider: Maude Vallejo RN) 0932 (Given - Provider: Rafaela Negron RN) 0950 (Given - Provider: Alma Delia Page RN) docusate sodium (COLACE) capsule 100 mg 100 mg, Oral, 2 times daily, First dose on Mon01/19/22 at 0900, Hold for loose stools DO NOT CRUSH OR CHEW. 0951 (Given - Provider: Maude Vallejo RN)2020 (Given - Provider: Kiesha Mosquera RN) 0932 (Given - Provider: Rafaela Negron RN)2030 (Given - Provider: Kiesha Mosquera RN) 0950 (Given - Provider: Alma Delia Page RN) enoxaparin (LOVENOX) syringe 40 mg 40 mg, Subcutaneous, Daily, First dose on Mon01/19/22 at 0900, Administer in abdomen unless otherwise directed by prescriber. Notify physician if patient refuses., Indication: VTE Prophylaxis 0952 (Given - Provider: Maude Vallejo RN) 0932 (Given - Provider: Rafaela Negron RN) 0950 (Given - Provider: Alma Delia Page RN) gabapentin (NEURONTIN) capsule 100 mg 100 mg, Oral, Every 8 hours scheduled, First dose on Mon01/19/22 at 0600 0951 (Given - Provider: Maude Vallejo RN)1338 (Given - Provider: Violetta Stuart RN)2220 (Given - Provider: Kiesha Mosquera RN) 0640 (Given - Provider: Kiesha Mosquera RN)1407 (Given - Provider: Rafaela Negron RN)2233 (Given - Provider: Kiesha Mosquera RN) 0614 (Given - Provider: Kiesha Mosquera RN)1415 (Given - Provider: Alma Delia Page, KULDEEP) losartan (COZAAR) tablet 50 mg 50 mg, Oral, Daily with lunch, First dose on Mon01/19/22 at 1200 1224 (Given - Provider: Violetta Stuart RN) 1218 (Given - Provider: Rafaela Negron, KULDEEP) 1235 (Given - Provider: Alma Delia Page RN) metoprolol tartrate (LOPRESSOR) tablet 50 mg 50 mg, Oral, 2 times daily, First dose on Mon01/19/22 at 0900 0951 (Given - Provider: Maude Vallejo RN)202 (Given - Provider: Kiesha Mosquera RN) 0932 (Given - Provider: Rafaela Negron RN)203 (Given - Provider: Kiesha Mosquera RN) 0950 (Given - Provider: Alma Delia Page RN) pantoprazole (PROTONIX) EC tablet 40 mg 40 mg, Oral, Daily, First dose on Mon01/19/22 at 0900, DO NOT CRUSH OR CHEW. 0951 (Given - Provider: Maude Vallejo RN) 0932 (Given - Provider: Rafaela Negron RN) 0950 (Given - Provider: Alma Delia Page RN) sodium chloride (PF) (NS) flush 5 mL(Linked Group 1) 5 mL, Intravenous, Every 8 hours scheduled, First dose on Mon01/19/22 at 0010, Saline lock 0010 (Given - Provider: Mary Robles RN)0600 (Not Given - Provider: Maude Vallejo RN - Reason: Order parameters not met)1340 (Given - Provider: Violetta Stuart RN)2222 (Given - Provider: Kiesha Mosquera RN) 0600 (Due)1400 (Canceled Entry - Provider: Rafaela Negron RN)2233 (Given - Provider: Kiesha Mosquera RN) 0615 (Given - Provider: iKesha Mosquera RN)1400 (Not Given - Provider: Alma Delia Page RN - Reason: Contraindicated) tiotropium bromide (SPIRIVA RESPIMAT) 2.5 mcg/actuation inhaler 2 puff 2 puff, Inhalation, Daily (RT), First dose on Mon01/19/22 at 1900 2220 (Given - Provider: Kiesha Mosquera, RN) 0932 (Given - Provider: Rafaela Negron, KULDEEP) 0951 (Given - Provider: Alma Delia Page RN) vancomycin (VANCOCIN) 1750 mg in sodium chloride 0.9% (NS) 500 mL IVPB 1,750 mg, Intravenous, at 250 mL/hr, Every 18 hours, First dose (after last modification) on Prerna 01/20/22 at 1215, Indication: Cellulitis Not Responding to Beta-lactams 1223 (New Bag - Provider: Rafaela Negorn, RN)1430 (Stopped - Provider: Rafaela Negron, KULDEEP) 0726 (New Bag - Provider: Kiesha Mosquera RN) PRN Medication Order 01/19/2022 01/20/2022 01/21/2022 acetaminophen (TYLENOL) tablet 650 mg 650 mg, Oral, Every 4 hours PRN, mild pain, fever 100.4 F or greater, headaches, Starting on Mon01/19/22 at 0008 2020 (Given - Provider: Kiesha Mosquera, KULDEEP) iopamidoL (ISOVUE-370) 76 % injection 125 mL (COMPLETED) 125 mL, Intravenous, Once in imaging, contrast, Starting on Mon01/19/22 at 0048, For 1 dose 0110 (Contrast Administered - Provider: Mirna Wynn, TECHNOLOGIST) magnesium hydroxide (MOM) 400 mg/5 mL suspension 2,400 mg 2,400 mg (30 mL), Oral, Daily PRN, constipation, Starting on Mon01/19/22 at 0008, If no bowel movement in 24 hours after Sennosides (SENNA) administration. melatonin Tab 5 mg 5 mg, Oral, Nightly PRN, Sleep, Starting on Mon01/19/22 at 0009 2235 (Given - Provider: Kiesha Mosquera RN) naloxone (NARCAN) injection 0.1 mg(Linked Group 2) 0.1 mg, Intravenous, As needed, opioid reversal, For respiratory rate less than or equal to 8 per minute., Starting on Mon01/19/22 at 0335, Mix nalOXone (NARCAN) 0.4 mg (1mL) with 9 mL of Normal Saline to total 10 mL. Administer 0.1 mg (2.5mL) IV Push every 2 minutes until respiratory rate is 10 or greater. naloxone (NARCAN) injection 0.4 mg(Linked Group 2) 0.4 mg, Intravenous, As needed, opioid reversal, patient is pulseless, breathless, and unresponsive, Starting on Mon01/19/22 at 0335, Call a code first, then administer naloxone dose undiluted IV Push over 30 seconds. nitroGLYCERIN (NITROSTAT) SL tablet 0.4 mg 0.4 mg, Sublingual, Every 5 min PRN, chest pain, Starting on Mon01/19/22 at 0335, For 3 doses, Anginal pain, may repeat [id number] x3, then notify physician. DO NOT CRUSH OR CHEW. ondansetron (ZOFRAN) injection 4 mg(Linked Group 3) 4 mg, Intravenous, Every 6 hours PRN, nausea, vomiting, Starting on Mon01/19/22 at 0008, Use oral route first, if tolerated. 1216 (Given - Provider: Rafaela Negron RN) ondansetron (ZOFRAN-ODT) disintegrating tablet 4 mg(Linked Group 3) 4 mg, Oral, Every 6 hours PRN, nausea, vomiting, Starting on Mon01/19/22 at 0008, Use oral route first, if tolerated. Formulation requires tablet remain in sealed package until immediately prior to dose being administered. 1216 (See Alternative - Provider: Rafaela Negron RN) oxyCODONE (ROXICODONE) immediate release tablet 5 mg 5 mg, Oral, Every 6 hours PRN, moderate to severe pain, Starting on Mon01/19/22 at 0335 1646 (Given - Provider: Violetta Stuart RN)2220 (Given - Provider: Kiesha Mosquera, KULDEEP) 0658 (Given - Provider: Kiesha Mosquera, KULDEEP)1218 (Given - Provider: Rafaela Negron RN)2111 (Given - Provider: Kiesha Mosquera, KULDEEP) oxymetazoline (AFRIN) 0.05 % nasal spray 2 spray 2 spray, Each Nare, 2 times daily PRN, congestion, Starting on Mon01/19/22 at 1900, For 2 days senna (SENOKOT) tablet 8.6 mg 8.6 mg (1 tablet), Oral, 2 times daily PRN, constipation, Starting on Mon01/19/22 at 0008 sodium chloride (PF) (NS) 0.9 % contrast line flush 10 mL(Linked Group 4) 10 mL, Intravenous, Once in imaging, contrast, Per adjunct psychology faculty member (Radiology) for line patency check prior to contrast administration, Starting on Mon01/19/22 at 0048, For 1 dose sodium chloride (PF) (NS) 0.9 % contrast line flush 80 mL(Linked Group 4) 80 mL, Intravenous, Once in imaging, contrast, Per adjunct psychology faculty member (Radiology), Starting on Mon01/19/22 at 0048, For 1 dose, 30 mL BEFORE contrast administration 50 mL AFTER contrast administration sodium chloride (PF) (NS) flush 5 mL(Linked Group 1) 5 mL, Intravenous, As needed, line care, Starting on Mon01/19/22 at 0007 sodium chloride 0.9% (NS)(Linked Group 1) 0-150 mL/hr, Intravenous, As needed, To flush line after IV infusions when no maintenance IV ordered or a compatibility issue. Infuse 20ml at the same rate as the secondary infusion, Starting on Mon01/19/22 at 0007, Run as Primary IV. NOT intended for KVO. Linked Groups Order Group 1: Saline lock IV (CANCELED) Routine, Continuous, Starting on Mon01/19/22 at 0010, Until Specified And sodium chloride (PF) (NS) flush 5 mLJump to med 5 mL, Intravenous, As needed, line care, Starting on Mon01/19/22 at 0007 And sodium chloride (PF) (NS) flush 5 mLJump to med 5 mL, Intravenous, Every 8 hours scheduled, First dose on Mon01/19/22 at 0010
Saline lock
And sodium chloride 0.9% (NS)Jump to med 0-150 mL/hr, Intravenous, As needed, To flush line after IV infusions when no maintenance IV ordered or a compatibility issue. Infuse 20ml at the same rate as the secondary infusion, Starting on Mon01/19/22 at 0007
Run as Primary IV. NOT intended for KVO.
Group 2: naloxone (NARCAN) injection 0.1 mgJump to med 0.1 mg, Intravenous, As needed, opioid reversal, For respiratory rate less than or equal to 8 per minute., Starting on Mon01/19/22 at 0335
Mix nalOXone (NARCAN) 0.4 mg (1mL) with 9 mL of Normal Saline to total 10 mL. Administer 0.1 mg (2.5mL) IV Push every 2 minutes until respiratory rate is 10 or greater.
And Notify physician (CANCELED) STAT, Until discontinued, Starting on Mon01/19/22 at 0340, Until Specified
Respiratory rate less than: 8
For respiratory rate less than or equal to 8, notify physician and/or appropriate staff for additional orders. And naloxone (NARCAN) injection 0.4 mgJump to med 0.4 mg, Intravenous, As needed, opioid reversal, patient is pulseless, breathless, and unresponsive, Starting on Mon01/19/22 at 0335
Call a code first, then administer naloxone dose undiluted IV Push over 30 seconds.
Group 3: ondansetron (ZOFRAN-ODT) disintegrating tablet 4 mgJump to med 4 mg, Oral, Every 6 hours PRN, nausea, vomiting, Starting on Mon01/19/22 at 0008
Use oral route first, if tolerated. Formulation requires tablet remain in sealed package until immediately prior to dose being administered.
Or ondansetron (ZOFRAN) injection 4 mgJump to med 4 mg, Intravenous, Every 6 hours PRN, nausea, vomiting, Starting on Mon01/19/22 at 0008
Use oral route first, if tolerated.
Group 4: sodium chloride (PF) (NS) 0.9 % contrast line flush 10 mLJump to med 10 mL, Intravenous, Once in imaging, contrast, Per adjunct psychology faculty member (Radiology) for line patency check prior to contrast administration, Starting on Mon01/19/22 at 0048, For 1 dose And sodium chloride (PF) (NS) 0.9 % contrast line flush 80 mLJump to med 80 mL, Intravenous, Once in imaging, contrast, Per adjunct psychology faculty member (Radiology), Starting on Mon01/19/22 at 0048, For 1 dose
30 mL BEFORE contrast administration 50 mL AFTER contrast administration
Scheduled Medication Order 04/13/2022 04/14/2022 04/15/2022 aspirin EC tablet 81 mg 81 mg, Oral, Daily, First dose on Mon04/15/22 at 0900, DO NOT CRUSH OR CHEW. 1014 (Given - Provid er: Mirta Huerta RN) atorvastatin (LIPITOR) tablet 40 mg 40 mg, Oral, Daily, First dose on Mon04/15/22 at 0900 1015 (Given - Provid er: Mirta Huerta RN) fentaNYL (SUBLIMAZE) injection 50 mcg (COMPLETED) 50 mcg, Intravenous, Once, On Prerna 04/14/22 at 2120, For 1 dose 2119 (Given - Provider: Rose Bautista RN) gabapentin (NEURONTIN) capsule 100 mg 100 mg, Oral, Every 8 hours scheduled, First dose on Mon04/15/22 at 0200 0200 (Not Given - Provider: Mane Akins RN - Reason: Patient/family refused)0614 (Given - Provider: Mane Akins RN)1419 (Given - Provider: Mirta Huerta RN) losartan (COZAAR) tablet 50 mg 50 mg, Oral, Daily, First dose on Mon04/15/22 at 0900 1014 (Given - Provid er: Mirta Huerta RN) metoprolol tartrate (LOPRESSOR) tablet 50 mg 50 mg, Oral, 2 times daily, First dose on Mon04/15/22 at 0900 1015 (Given - Provid er: Mirta Huerta RN) pantoprazole (PROTONIX) EC tablet 40 mg 40 mg, Oral, Daily, First dose on Mon04/15/22 at 0900, DO NOT CRUSH OR CHEW. 1015 (Given - Provid er: Mirta Huerta RN) polyethylene glycol (MIRALAX) powder 17 g 17 g, Oral, Daily, First dose on Mon04/15/22 at 0900 1014 (Given - Provid er: Mirta Huerta RN) rivaroxaban (XARELTO) tablet 2.5 mg 2.5 mg, Oral, 2 times daily, First dose on Mon04/15/22 at 0200, Must be given with food. Notify physician if patient refuses. If feeding tube administration, give only via tubes placed in the stomach., Indication: CAD/PAD 0200 (Not Given - Provider: Mane Akins RN - Reason: Patient/family refused)1017 (Given - Provider: Mirta Huerta, RN) sodium chloride (PF) (NS) flush 5 mL(Linked Group 1) 5 mL, Intravenous, Every 8 hours scheduled, First dose on Mon04/15/22 at 0200, Saline lock 0200 (Canceled Entry - Provider: Mane Akins RN)0600 (Canceled Entry - Provider: Mane Akins, KULDEEP)1014 (Given - Provider: Mirta Huerta, RN)1400 (Not Given - Provider: Mirta Huerta, RN - Reason: Other) PRN Medication Order 04/13/2022 04/14/2022 04/15/2022 acetaminophen (TYLENOL) tablet 650 mg 650 mg, Oral, Every 4 hours PRN, mild pain, fever 100.4 F or greater, headaches, Starting on Mon04/15/22 at 010 albuterol inhaler 2 puff 2 puff, Inhalation, Every 4 hours PRN, wheezing, shortness of breath, Starting on Mon04/15/22 at 010, SPACER REQUIRED FOR ADMINISTRATION iopamidoL (ISOVUE-370) 76 % injection 125 mL (COMPLETED) 125 mL, Intravenous, Once in imaging, contrast, Starting on Mon04/14/22 at 2110, For 1 dose 2129 (Contrast Administered - Provider: Beena Yates, TECHNOLOGIST) iopamidoL (ISOVUE-370) 76 % injection 75 mL 75 mL, Intravenous, Once in imaging, contrast, Starting on Mon04/14/22 at 2110, For 1 dose naloxone (NARCAN) injection 0.1 mg(Linked Group 2) 0.1 mg, Intravenous, As needed, opioid reversal, For respiratory rate less than or equal to 8 per minute., Starting on Mon04/15/22 at 0101, Mix nalOXone (NARCAN) 0.4 mg (1mL) with 9 mL of Normal Saline to total 10 mL. Administer 0.1 mg (2.5mL) IV Push every 2 minutes until respiratory rate is 10 or greater. naloxone (NARCAN) injection 0.4 mg(Linked Group 2) 0.4 mg, Intravenous, As needed, opioid reversal, patient is pulseless, breathless, and unresponsive, Starting on Mon04/15/22 at 0101, Call a code first, then administer naloxone dose undiluted IV Push over 30 seconds. ondansetron (ZOFRAN) injection 4 mg(Linked Group 3) 4 mg, Intravenous, Every 6 hours PRN, nausea, vomiting, Starting on Mon04/15/22 at 0101, Use oral route first, if tolerated. 0614 (See Alternativ e - Provider: Mane Akins RN)1422 (See Alternative - Provider: Mirta Huerta, RN)1910 (See Alternative - Provider: Lizz Damon, RN) ondansetron (ZOFRAN-ODT) disintegrating tablet 4 mg(Linked Group 3) 4 mg, Oral, Every 6 hours PRN, nausea, vomiting, Starting on Mon04/15/22 at 0101, Use oral route first, if tolerated. Formulation requires tablet remain in sealed package until immediately prior to dose being administered. 0614 (Given - Provid er: Mane Akins RN)142 (Given - Provider: Mirta Huerta, RN)1910 (Given - Provider: Lizz Damon, KULDEEP) oxyCODONE-acetaminophen (PERCOCET) 5-325 mg per tablet 1 tablet 1 tablet, Oral, Every 6 hours PRN, moderate to severe pain, Starting on Mon04/15/22 at 0101 012 (Given - Provid er: Mane Akins RN) sodium chloride (PF) (NS) 0.9 % contrast line flush 10 mL (COMPLETED) 10 mL, Intravenous, Once in imaging, contrast, Per adjunct psychology faculty member (Radiology) for line patency check prior to contrast administration, Starting on Mon04/14/22 at 2110, For 1 dose 2131 (Given - Provider: Beena Yates TECHNANKUR) sodium chloride (PF) (NS) 0.9 % contrast line flush 80 mL (COMPLETED) 80 mL, Intravenous, Once in imaging, contrast, Per adjunct psychology faculty member (Radiology), Starting on Mon04/14/22 at 2110, For 1 dose, 30 mL BEFORE contrast administration 50 mL AFTER contrast administration 2130 (Given - Provider: TECHNOLOGIST Johanny) sodium chloride (PF) (NS) flush 5 mL(Linked Group 4) 5 mL, Intravenous, As needed, line care, Starting on Prerna 04/14/22 at 1942 sodium chloride (PF) (NS) flush 5 mL(Linked Group 1) 5 mL, Intravenous, As needed, line care, Starting on Mon04/15/22 at 0101 sodium chloride 0.9% (NS)(Linked Group 4) 0-150 mL/hr, Intravenous, As needed, To flush line after IV infusions when no maintenance IV ordered or a compatibility issue. Infuse 20ml at the same rate as the secondary infusion, Starting on Prerna 04/14/22 at 1942, Run as Primary IV. NOT intended for KVO. sodium chloride 0.9% (NS)(Linked Group 1) 0-150 mL/hr, Intravenous, As needed, To flush line after IV infusions when no maintenance IV ordered or a compatibility issue. Infuse 20ml at the same rate as the secondary infusion, Starting on Mon04/15/22 at 0101, Run as Primary IV. NOT intended for KVO. zolpidem (AMBIEN) tablet 10 mg 10 mg, Oral, Nightly PRN, sleep, Starting on Mon04/15/22 at 0101 Linked Groups Order Group 1: Saline lock IV (CANCELED) Routine, Continuous, Starting on Mon04/15/22 at 0102, Until Specified And sodium chloride (PF) (NS) flush 5 mLJump to med 5 mL, Intravenous, As needed, line care, Starting on Mon04/15/22 at 0101 And sodium chloride (PF) (NS) flush 5 mLJump to med 5 mL, Intravenous, Every 8 hours scheduled, First dose on Mon04/15/22 at 0200
Saline lock
And sodium chloride 0.9% (NS)Jump to med 0-150 mL/hr, Intravenous, As needed, To flush line after IV infusions when no maintenance IV ordered or a compatibility issue. Infuse 20ml at the same rate as the secondary infusion, Starting on Mon04/15/22 at 0101
Run as Primary IV. NOT intended for KVO.
Group 2: naloxone (NARCAN) injection 0.1 mgJump to med 0.1 mg, Intravenous, As needed, opioid reversal, For respiratory rate less than or equal to 8 per minute., Starting on Mon04/15/22 at 0101
Mix nalOXone (NARCAN) 0.4 mg (1mL) with 9 mL of Normal Saline to total 10 mL. Administer 0.1 mg (2.5mL) IV Push every 2 minutes until respiratory rate is 10 or greater.
And Notify physician (CANCELED) STAT, Until discontinued, Starting on Mon04/15/22 at 0102, Until Specified
Respiratory rate less than: 8
For respiratory rate less than or equal to 8, notify physician and/or appropriate staff for additional orders. And naloxone (NARCAN) injection 0.4 mgJump to med 0.4 mg, Intravenous, As needed, opioid reversal, patient is pulseless, breathless, and unresponsive, Starting on Mon04/15/22 at 0101
Call a code first, then administer naloxone dose undiluted IV Push over 30 seconds.
Group 3: ondansetron (ZOFRAN-ODT) disintegrating tablet 4 mgJump to med 4 mg, Oral, Every 6 hours PRN, nausea, vomiting, Starting on Mon04/15/22 at 0101
Use oral route first, if tolerated. Formulation requires tablet remain in sealed package until immediately prior to dose being administered.
Or ondansetron (ZOFRAN) injection 4 mgJump to med 4 mg, Intravenous, Every 6 hours PRN, nausea, vomiting, Starting on Mon04/15/22 at 0101
Use oral route first, if tolerated.
Group 4: Insert peripheral IV (COMPLETED) KAJAL, Once, On Mon04/14/22 at 1945, For 1 occurrence And Saline lock IV (CANCELED) KAJAL, Once, On Mon04/14/22 at 194, For 1 occurrence And sodium chloride (PF) (NS) flush 5 mLJump to med 5 mL, Intravenous, As needed, line care, Starting on Mon04/14/22 at 1942 And sodium chloride 0.9% (NS)Jump to med 0-150 mL/hr, Intravenous, As needed, To flush line after IV infusions when no maintenance IV ordered or a compatibility issue. Infuse 20ml at the same rate as the secondary infusion, Starting on Mon04/14/22 at 1942
Run as Primary IV. NOT intended for KVO.
Scheduled Medication Order 11/06/2022 11/07/2022 11/08/2022 aspirin chewable tablet 81 mg 81 mg, Oral, Daily, First dose on Mon11/04/22 at 0900 0834 (Given - Provider: Terri Mackenzie, KULDEEP) 0859 (Given - Provider: Cara Dorado, KULDEEP) 0928 (Given - Provider: Andree Agarwal, KULDEEP) atorvastatin (LIPITOR) tablet 40 mg 40 mg, Oral, Nightly, First dose on Mon11/04/22 at 2100 2020 (Given - Provider: Meir Nath, KULDEEP) 2022 (Given - Provider: Meir Nath, KULDEEP) benzonatate (TESSALON) capsule 100 mg 100 mg, Oral, 3 times daily, First dose (after last reorder) on Mon11/04/22 at 1045, DO NOT CRUSH OR CHEW. 0834 (Given - Provider: Terri Mackenzie RN)1659 (Given - Provider: Terri Mackenzie RN)2019 (Given - Provider: Meir Nath, KULDEEP) 0859 (Given - Provider: Cara Dorado, KULDEEP)1556 (Given - Provider: Cara Dorado RN)2022 (Given - Provider: Meir Nath RN) 0928 (Given - Provider: Andree Agarwal, KULDEEP) budesonide-formoteroL (SYMBICORT) 160-4.5 mcg/actuation inhaler 2 puff(Linked Group 1) 2 puff, Inhalation, 2 times daily (RT), First dose on Mon11/03/22 at 2230 0836 (Given - Provider: Terri Mackenzie, KULDEEP)2019 (Given - Provider: Meir Nath, KULDEEP) 0904 (Given - Provider: Cara Dorado, KULDEEP)2023 (Given - Provider: Meir Nath, KULDEEP) 0929 (Given - Provider: Andree Agarwal, KULDEEP) cefePIMe-dextrose (MAXIPIME) 2 gram/50 mL IVPB 2,000 mg 2,000 mg, Intravenous, at 100 mL/hr, Every 12 hours, First dose on Mon11/04/22 at 1000, Indication: HAP/VAP 1138 (New Bag - Provider: Terri Mackenzie, RN)2247 (New Bag - Provider: Meir Nath, RN)2252 (Paused - Provider: Meir Nath, RN)225 (Restarted - Provider: Meir Nath, RN)2319 (Stopped - Provider: Meir Nath, RN) 1139 (New Bag - Provider: Cara Dorado, KULDEEP)2138 (New Bag - Provider: Meir Nath, RN) 1037 (New Bag - Provider: Andree Agarwal, KULDEEP) docusate sodium (COLACE) capsule 100 mg 100 mg, Oral, Daily, First dose on Mon11/07/22 at 1900, Hold for loose stools DO NOT CRUSH OR CHEW. 1835 (Given - Provider: Cara Dorado, KULDEEP) 0928 (Given - Provider: Andree Agarwal, KULDEEP) furosemide (LASIX) injection 20 mg (CANCELED) 20 mg, Intravenous, 2 times daily before meals, First dose on Mon11/04/22 at 0730 0833 (Given - Provider: Terri Mackenzie RN)1659 (Given - Provider: Terri Mackenzie RN) 0900 (Given - Provider: Cara Dorado, KULDEEP) furosemide (LASIX) tablet 20 mg 20 mg, Oral, Daily, First dose on Mon11/08/22 at 0900 0928 (Given - Provider: Andree Agarwal, KULDEEP) ipratropium-albuteroL (DUO-NEB) 0.5-2.5 mg/3 ml nebulizer solution 3 mL 3 mL, Inhalation, Every 6 hours scheduled (RT), First dose on Mon11/03/22 at 2230 0345 (Not Given - Provider: Gisella Pyle, ARMHOLE RAISER LOCKSTITCH - Reason: Patient/family refused - Comment: Patient doesn't want his treatment throughout the night)0800 (Not Given - Provider: Sussy Rocha, ARMHOLE RAISER LOCKSTITCH - Reason: Patient not available)1515 (Given - Provider: Andrew Milan, OIL FIRE SPECIALIST)2012 (Given - Provider: Claire Ireland, ARMHOLE RAISER LOCKSTITCH) 0200 (Not Given - Provider: Claire Ireland, ARMHOLE RAISER LOCKSTITCH - Reason: Patient/family refused)0828 (Given - Provider: Sussy Rocha, ARMHOLE RAISER LOCKSTITCH)1400 (Given - Provider: Sussy Rocha, ARCHANA)2024 (Given - Provider: Claire Ireland, ARMHOLE RAISER LOCKSTITCH) 0200 (Not Given - Provider: Claire Ireland, ARCHANA - Reason: Patient/family refused)0800 (Not Given - Provider: Jesse Ferraro RRT - Reason: Other - Comment: patient wanted to eat/wait till next round)1400 (Due) losartan (COZAAR) tablet 50 mg (CANCELED) 50 mg, Oral, Daily with lunch, First dose on Mon11/04/22 at 1200 1351 (Given - Provider: Terri Mackenzie RN) metoprolol tartrate (LOPRESSOR) tablet 50 mg 50 mg, Oral, 2 times daily, First dose on Prerna 11/03/22 at 2230 0833 (Given - Provider: Terri Mackenzie RN)2020 (Given - Provider: Meir Nath RN) 0900 (Given - Provider: Cara Dorado, KULDEEP)2022 (Given - Provider: Meir Nath RN) 0928 (Given - Provider: Andree Agarwal, KULDEEP) pantoprazole (PROTONIX) EC tablet 40 mg 40 mg, Oral, 2 times daily, First dose on Mon11/03/22 at 2230, DO NOT CRUSH OR CHEW. 0833 (Given - Provider: Terri Mackenzie RN)2019 (Given - Provider: Meir Nath RN) 0859 (Given - Provider: Cara Dorado, KULDEEP)2022 (Given - Provider: Meir Nath RN) 0928 (Given - Provider: Andree Agarwal RN) perflutren lipid microspheres (DEFINITY) 0.143 mg/mL solution 0-10 mL of mixture (COMPLETED) 0-10 mL of mixture, Intravenous, Once, On 11/06/22 at 1215, For 1 dose, Prepare syringe by withdrawing 1.3 mL of perflutren (DEFINITY) from the 2ml vial. Further dilute the 1.3 mL of perflutren with Sodium Chloride (NS) 0.9% to total volume of 10 ml. Chart total ML OF MIXTURE given to patient. 1119 (Given - Provider: Peyman Rubio RN) polyethylene glycol (MIRALAX) powder 17 g 17 g, Oral, Daily, First dose on 3/12/23 at 0900 1136 (Given - Provider: Terri Mackenzie, RN) 0900 (Given - Provider: Cara Dorado, KULDEEP) 0929 (Given - Provider: Andree Agarwal, KUDLEEP) rivaroxaban (XARELTO) tablet 2.5 mg 2.5 mg, Oral, 2 times daily, First dose (after last modification) on Mon11/04/22 at 0800, Must be given with food. Notify physician if patient refuses. If feeding tube administration, give only via tubes placed in the stomach., Indication: CAD/PAD 0833 (Given - Provider: Terri Mackenzie, RN)2020 (Given - Provider: Meir Nath, KULDEEP) 0859 (Given - Provider: Cara Dorado, KULDEEP)2022 (Given - Provider: Meir Nath, KULDEEP) 09 (Given - Provider: Andree Agarwal, RN) sodium chloride (OCEAN) 0.65 % nasal spray 1 spray 1 spray, Each Nare, 2 times daily, First dose (after last modification) on Mon11/07/22 at 2100, Upright delivers a spray; Horizontally a stream; Upside down a drop. 2100 (Not Given - Provider: Mier Nath RN - Reason: Patient/family refused) 0900 (Not Given - Provider: Andree Agarwal RN - Reason: Other - Comment: pt states he uses as needed) sodium chloride (PF) (NS) flush 5 mL(Linked Group 2) 5 mL, Intravenous, Every 8 hours scheduled, First dose on Prer[place] 11/03/22 at 2230, Saline lock 0527 (Given - Provider: Misty Ponce RN)1659 (Given - Provider: Terri Mackenzie, KULDEEP)2200 (Canceled Entry - Provider: Meir Nath, KULDEEP) 0625 (Given - Provider: Meir Nath, KULDEEP)1400 (Canceled Entry - Provider: Cara Dorado, KULDEEP)2138 (Given - Provider: Meir Nath, KULDEEP) 0615 (Given - Provider: Meir Nath, KULDEEP)1400 (Due) tiotropium bromide (SPIRIVA RESPIMAT) 2.5 mcg/actuation inhaler 2 puff(Linked Group 1) 2 puff, Inhalation, Daily (RT), First dose on Mon11/04/22 at 0900 0835 (Given - Provider: Terri Mackenzie, RN) 0904 (Given - Provider: Cara Dorado, KULDEEP) 0929 (Given - Provider: Andree Agarwal, KULDEEP) PRN Medication Order 11/06/2022 11/07/2022 11/08/2022 aluminum-magnesium hydroxide-simethicone (MAALOX PLUS) 200-200-20 mg/5 mL suspension 30 mL 30 mL, Oral, Every 4 hours PRN, indigestion, Starting on Mon11/03/22 at 2228 ipratropium-albuteroL (DUO-NEB) 0.5-2.5 mg/3 ml nebulizer solution 3 mL 3 mL, Inhalation, Every 4 hours PRN (RT), shortness of breath, Starting on Mon11/03/22 at 2228 naloxone (NARCAN) injection 0.1 mg(Linked Group 3) 0.1 mg, Intravenous, As needed, opioid reversal, For respiratory rate less than or equal to 8 per minute., Starting on Mon11/04/22 at 1000, Mix nalOXone (NARCAN) 0.4 mg (1mL) with 9 mL of Normal Saline to total 10 mL. Administer 0.1 mg (2.5mL) IV Push every 2 minutes until respiratory rate is 10 or greater. naloxone (NARCAN) injection 0.4 mg(Linked Group 3) 0.4 mg, Intravenous, As needed, opioid reversal, patient is pulseless, breathless, and unresponsive, Starting on Mon11/04/22 at 1000, Call a code first, then administer naloxone dose undiluted IV Push over 30 seconds. ondansetron (ZOFRAN) injection 4 mg(Linked Group 4) 4 mg, Intravenous, Every 6 hours PRN, nausea, vomiting, Starting on Mon11/03/22 at 2227, Use oral route first, if tolerated. 0712 (See Alternative - Provider: Meir Nath RN) ondansetron (ZOFRAN-ODT) disintegrating tablet 4 mg(Linked Group 4) 4 mg, Oral, Every 6 hours PRN, nausea, vomiting, Starting on Mon11/03/22 at 2227, Use oral route first, if tolerated. Formulation requires tablet remain in sealed package until immediately prior to dose being administered. 07 (Given - Provider: Meir Nath, KULDEEP) oxyCODONE-acetaminophen (PERCOCET) 5-325 mg per tablet 1 tablet 1 tablet, Oral, Every 4 hours PRN, moderate to severe pain, Starting on Mon11/04/22 at 1000 0525 (Given - Provider: Misty Ponce, RN)1253 (Given - Provider: Terri Mackenzie, RN)2242 (Given - Provider: Meir Nath, KULDEEP) sodium chloride (OCEAN) 0.65 % nasal spray 1 spray (CANCELED) 1 spray, Each Nare, As needed, irritation, Starting on 11/05/22 at 1130, Upright delivers a spray; Horizontally a stream; Upside down a drop. 0835 (Given - Provider: Terri Mackenzie RN) sodium chloride (PF) (NS) flush 5 mL(Linked Group 5) 5 mL, Intravenous, As needed, line care, Starting on Prerna 11/03/22 at 1326 sodium chloride (PF) (NS) flush 5 mL(Linked Group 2) 5 mL, Intravenous, As needed, line care, Starting on Mon11/03/22 at 2228 sodium chloride 0.9% (NS)(Linked Group 5) 0-150 mL/hr, Intravenous, As needed, To flush line after IV infusions when no maintenance IV ordered or a compatibility issue. Infuse 20ml at the same rate as the secondary infusion, Starting on Mon11/03/22 at 1326, Run as Primary IV. NOT intended for KVO. sodium chloride 0.9% (NS)(Linked Group 2) 0-150 mL/hr, Intravenous, As needed, To flush line after IV infusions when no maintenance IV ordered or a compatibility issue. Infuse 20ml at the same rate as the secondary infusion, Starting on Prerna 11/03/22 at 2228, Run as Primary IV. NOT intended for KVO. zolpidem (AMBIEN) tablet 10 mg 10 mg, Oral, Nightly PRN, sleep, Starting on Mon11/04/22 at 2341 Linked Groups Order Group 1: budesonide-formoteroL (SYMBICORT) 160-4.5 mcg/actuation inhaler 2 puffJump to med 2 puff, Inhalation, 2 times daily (RT), First dose on Mon11/03/22 at 2230 And tiotropium bromide (SPIRIVA RESPIMAT) 2.5 mcg/actuation inhaler 2 puffJump to med 2 puff, Inhalation, Daily (RT), First dose on Mon11/04/22 at 0900 Group 2: Saline lock IV (CANCELED) Routine, Continuous, Starting on Mon11/03/22 at 2230, Until Specified And sodium chloride (PF) (NS) flush 5 mLJump to med 5 mL, Intravenous, As needed, line care, Starting on Mon11/03/22 at 2228 And sodium chloride (PF) (NS) flush 5 mLJump to med 5 mL, Intravenous, Every 8 hours scheduled, First dose on Mon11/03/22 at 2230
Saline lock
And sodium chloride 0.9% (NS)Jump to med 0-150 mL/hr, Intravenous, As needed, To flush line after IV infusions when no maintenance IV ordered or a compatibility issue. Infuse 20ml at the same rate as the secondary infusion, Starting on Mon11/03/22 at 2228
Run as Primary IV. NOT intended for KVO.
Group 3: naloxone (NARCAN) injection 0.1 mgJump to med 0.1 mg, Intravenous, As needed, opioid reversal, For respiratory rate less than or equal to 8 per minute., Starting on Mon11/04/22 at 1000
Mix nalOXone (NARCAN) 0.4 mg (1mL) with 9 mL of Normal Saline to total 10 mL. Administer 0.1 mg (2.5mL) IV Push every 2 minutes until respiratory rate is 10 or greater.
And Notify physician (CANCELED) STAT, Until discontinued, Starting on Mon11/04/22 at 1001, Until Specified
Respiratory rate less than: 8
For respiratory rate less than or equal to 8, notify physician and/or appropriate staff for additional orders. And naloxone (NARCAN) injection 0.4 mgJump to med 0.4 mg, Intravenous, As needed, opioid reversal, patient is pulseless, breathless, and unresponsive, Starting on Mon11/04/22 at 1000
Call a code first, then administer naloxone dose undiluted IV Push over 30 seconds.
Group 4: ondansetron (ZOFRAN-ODT) disintegrating tablet 4 mgJump to med 4 mg, Oral, Every 6 hours PRN, nausea, vomiting, Starting on Prerna 11/03/22 at 2227
Use oral route first, if tolerated. Formulation requires tablet remain in sealed package until immediately prior to dose being administered.
Or ondansetron (ZOFRAN) injection 4 mgJump to med 4 mg, Intravenous, Every 6 hours PRN, nausea, vomiting, Starting on Prerna 11/03/22 at 2227
Use oral route first, if tolerated.
Group 5: Insert peripheral IV (COMPLETED) KAJAL, Once, On Prerna 11/03/22 at 1330, For 1 occurrence And Saline lock IV (CANCELED) KAJAL, Once, On Prerna 11/03/22 at 1330, For 1 occurrence And sodium chloride (PF) (NS) flush 5 mLJump to med 5 mL, Intravenous, As needed, line care, Starting on Prerna 11/03/22 at 1326 And sodium chloride 0.9% (NS)Jump to med 0-150 mL/hr, Intravenous, As needed, To flush line after IV infusions when no maintenance IV ordered or a compatibility issue. Infuse 20ml at the same rate as the secondary infusion, Starting on Prerna 11/03/22 at 1326
Run as Primary IV. NOT intended for KVO.
Scheduled Medication Order 10/28/2022 10/29/2022 10/30/2022 benzonatate (TESSALON) capsule 100 mg (COMPLETED) 100 mg, Oral, NOW, 1 dose, On Bowie 10/30/22 at 2145 2143 (Given - Provid er: Jose Panchal RN) ipratropium-albuterol (DUONEB) nebulizer solution 1 ampule 1 ampule, Inhalation, EVERY 4 HOURS WHILE AWAKE, First dose on Bowie 10/30/22 at 2000, Until Discontinued, Initiate RT Bronchodilator Protocol: No 1946 (Given - Provid er: Norma Fitzgerald RCP) methylPREDNISolone sodium (SOLU-MEDROL) injection 125 mg 125 mg, IntraVENous, DAILY, First dose on Bowie 10/30/22 at 1945 1940 (Given - Provid er: Jose Panchal, KULDEEP) Scheduled Medication Order 10/28/2022 10/29/2022 10/30/2022 ipratropium-albuterol (DUONEB) nebulizer solution 1 ampule 1 ampule, Inhalation, EVERY 4 HOURS WHILE AWAKE, First dose on Mon10/30/22 at 2000, Until Discontinued, Initiate RT Bronchodilator Protocol: No 1946 (Given - Provid er: Norma Fitzgerald RCP) methylPREDNISolone sodium (SOLU-MEDROL) injection 125 mg 125 mg, IntraVENous, DAILY, First dose on Mon10/30/22 at 194 1940 (Given - Provid er: Jose Panchal, KULDEEP) Scheduled Medication Order 03/19/2025 03/20/2025 03/21/2025 acetaminophen (TYLENOL) tablet 650 mg 650 mg, Oral, Every 4 hours while awake, First dose on Mon03/14/25 at 1500 0614 (Given - Provider: Jeremy Merchant RN)1126 (Given - Provider: Dashawn Cano RN)1431 (Given - Provider: Dashawn Cano RN)1816 (Given - Provider: Dashawn Cano RN)2117 (Given - Provider: Zenobia Clay, KULDEEP) 0536 (Given - Provider: Zenobia Clay RN)1118 (Given - Provider: Kaylie Denny RN)1400 (Hold - Provider: Kaylie Denny RN - Reason: Other - Comment: patient sleeping)1751 (Given - Provider: Kaylie Denny, KULDEEP)2157 (Given - Provider: China Negro RN) 0550 (Given - Provider: China Negro RN)1111 (Given - Provider: Katie Pino, KULDEEP)1400 (Not Given - Provider: Katie Pino, KULDEEP - Reason: Order parameters not met)1800 (Due) aspirin EC tablet 81 mg 81 mg, Oral, Daily, First dose on Mon03/14/25 at 1635, DO NOT CRUSH OR CHEW. 0837 (Given - Provider: Dashawn Cano RN) 0815 (Given - Provider: Kaylie Denny, KULDEEP) 0831 (Given - Provider: Katie Pino, KULDEEP) atorvastatin (LIPITOR) tablet 80 mg 80 mg, Oral, Nightly, First dose (after last modification) on Mon03/14/25 at 2130 2117 (Given - Provider: Zenobia Clay RN) 215 (Given - Provider: China Negro RN) azelastine (ASTELIN) 137 mcg (0.1 %) nasal spray 1 spray 1 spray, Each Nare, Daily, First dose on Mon03/15/25 at 0900 0839 (Given - Provider: Dashawn Cano RN) 0813 (Given - Provider: Kaylie Denny, KULDEEP) 0832 (Given - Provider: Katie Pino, RN) cyclobenzaprine (FLEXERIL) tablet 10 mg (CANCELED) 10 mg, Oral, Every 8 hours scheduled, First dose on Mon03/17/25 at 2200 0614 (Given - Provider: Jeremy Merchant, KULDEEP)1431 (Given - Provider: Dashawn Cano, KULDEEP)2117 (Given - Provider: Zenobia Clay RN) 0536 (Given - Provider: Zenobia Clay RN)1400 (Hold - Provider: Kaylie Denny RN - Reason: Patient/family refused - Comment: states makes him feel loopy asn asks to hold/discontinue order) furosemide (LASIX) tablet 20 mg 20 mg, Oral, Every other day, First dose on Mon03/15/25 at 0900 0838 (Given - Provider: Dashawn Cano RN) 0831 (Given - Provider: Katie Pino, KULDEEP) losartan (COZAAR) tablet 50 mg 50 mg, Oral, Daily with lunch, First dose on Mon03/15/25 at 1200, Please hold if mean arterial pressure (MAP) is less than 65 1126 (Not Given - Provider: Dashawn Cano RN - Reason: Order parameters not met - Comment: MAP 64) 1118 (Given - Provider: Kaylie Denny, KULDEEP) 1111 (Given - Provider: Katie Pino, KULDEEP) metoprolol tartrate (LOPRESSOR) tablet 50 mg 50 mg, Oral, 2 times daily, First dose on Mon03/14/25 at 2200, Please hold if mean arterial pressure (MAP) is less than 65 and/or HR is less than 60 0837 (Given - Provider: Dashawn Cano RN)2117 (Given - Provider: Zenobia Clay RN - Comment: BP 134/44, MAP 67, HR 88) 811 (Given - Provider: Kaylie Denny, KULDEEP)2156 (Given - Provider: China Negro RN) 0831 (Given - Provider: Katie Pino, KULDEEP) pantoprazole (PROTONIX) EC tablet 40 mg 40 mg, Oral, Daily, First dose on Mon03/15/25 at 0900, DO NOT CRUSH OR CHEW. 0838 (Given - Provider: Dashawn Cano RN) 0812 (Given - Provider: Kaylie Denny, KULDEEP) 0831 (Given - Provider: Katie Pino, KULDEEP) polyethylene glycol (MIRALAX) powder 17 g 17 g, Oral, Daily, First dose on Mon03/15/25 at 0900 0837 (Given - Provider: Dashawn Cano RN) 0900 (Hold - Provider: Kaylie Denny RN - Reason: Patient/family refused) 0831 (Given - Provider: Katie Pino RN) rivaroxaban (XARELTO) tablet 2.5 mg 2.5 mg, Oral, 2 times daily, First dose on Mon03/18/25 at 1300, Give with food if possible. Notify physician if patient refuses. If feeding tube administration, give only via tubes placed in the stomach., Indication: CAD/PAD 0839 (Given - Provider: Dashawn Cano RN)1918 (Given - Provider: Zenobia Clay RN) 0812 (Given - Provider: Kaylie Denny, KULDEEP)1937 (Given - Provider: China Negro RN) 0831 (Given - Provider: Katie Pino RN) tamsulosin (FLOMAX) 24 hr capsule 0.4 mg 0.4 mg, Oral, After evening meal, First dose on Mon03/15/25 at 1800, DO NOT CRUSH OR CHEW. Give 30 minutes after the same meal daily. Monitor for orthostasis due to potential risk of syncope. 1815 (Given - Provider: Dashawn Cano RN) 175 (Given - Provider: Kaylie Denny, KULDEEP) 1800 (Due) zolpidem (AMBIEN) tablet 10 mg 10 mg, Oral, Nightly, First dose on Mon03/14/25 at 2200 2117 (Given - Provider: Zenobia Clay, RN) 2156 (Given - Provider: China Negro, KULDEEP) Continuous Medication Order 03/19/2025 03/20/2025 03/21/2025 sodium chloride 0.9% for pressurized line 1,000 mL, Intra-catheter (arterial), Continuous, Starting on Mon03/17/25 at 2200, Maintain Arterial line at 300 mm Hg PRN Medication Order 03/19/2025 03/20/2025 03/21/2025 albuterol inhaler 2 puff 2 puff, Inhalation, Every 4 hours PRN (RT), shortness of breath, wheezing, Starting on Mon03/14/25 at 2026, SPACER REQUIRED FOR ADMINISTRATION aluminum-magnesium hydroxide-simethicone (MAALOX PLUS) 200-200-20 mg/5 mL suspension 30 mL 30 mL, Oral, Every 4 hours PRN, indigestion, Starting on Mon03/14/25 at 2025 calcium carbonate (TUMS) chewable tablet 500 mg 500 mg, Oral, Daily PRN, indigestion, heartburn, Starting on Mon03/14/25 at 2025, Give with Food 1938 (Given - Provider: China Negro, KULDEEP) HYDROmorphone (DILAUDID) injection 1 mg (CANCELED) 1 mg, Intravenous, Every 3 hours PRN, breakthru pain not controlled by PO, Starting on Mon03/17/25 at 1024 0631 (Given - Provider: Jeremy Merchant, KULDEEP) lidocaine HCL (UROJET/GLYDO) 2 % applicator 1 Application(Linked Group 1) 1 Application, Intra-urethral, As needed, For insertion of Urinary Catheter, Starting on Mon03/17/25 at 2111, For 1 dose melatonin Tab 5 mg 5 mg, Oral, Nightly PRN, Sleep, Starting on Mon03/14/25 at 2025 naloxone (NARCAN) injection 0.1 mg(Linked Group 2) 0.1 mg, Intravenous, As needed, opioid reversal, For respiratory rate less than or equal to 8 per minute., Starting on Mon03/14/25 at 1413, Mix nalOXone (NARCAN) 0.4 mg (1mL) with 9 mL of Normal Saline to total 10 mL. Administer 0.1 mg (2.5mL) IV Push every 2 minutes until respiratory rate is 10 or greater. naloxone (NARCAN) injection 0.4 mg(Linked Group 2) 0.4 mg, Intravenous, As needed, opioid reversal, patient is pulseless, breathless, and unresponsive, Starting on Mon03/14/25 at 1413, Call a code first, then administer naloxone dose undiluted IV Push over 30 seconds. ondansetron (ZOFRAN) injection 4 mg 4 mg, Intravenous, Every 6 hours PRN, nausea, vomiting, Starting on Mon03/14/25 at 1441 oxyCODONE (ROXICODONE) immediate release tablet 5-10 mg 5-10 mg, Oral, Every 4 hours PRN, moderate to severe pain, Starting on Mon03/17/25 at 2111, Initiate with 5 mg oral every 4 hours prn moderate to severe pain. For unrelieved pain, may repeat 5 mg within 60 minutes of initial dose. If pain is RELIEVED after repeat dose, change to 10 mg every 4 hours prn moderate to severe pain. If pain is UNrelieved after repeat dose, or patient requires dose reduction, call physician. 0105 (Given - Provider: Jeremy Merchant, KULDEEP)1919 (Given - Provider: Zenobia Clay, KULDEEP) 0812 (Given - Provider: Kaylie Denny, KULDEEP)1753 (Given - Provider: Kaylie Denny, KULDEEP) 1149 (Given - Provider: Katie Pino RN) polyvinyl alcohol (LIQUIFILM TEARS) 1.4 % ophthalmic solution 1 drop 1 drop, Both Eyes, As needed, dry eyes, Starting on Mon03/14/25 at 2025 prochlorperazine (COMPAZINE) injection 2.5 mg 2.5 mg, Intravenous, Every 6 hours PRN, nausea, Starting on Mon03/18/25 at 0202, If IV, give slow IV push at a rate not exceeding 5 mg/minute and remain lying down for 30 minutes to reduce risk of hypotension. If IM, inject deep into outer buttocks quadrant. senna-docusate (SENNA-S) 8.6-50 mg per tablet 1 tablet 1 tablet, Oral, Daily PRN, constipation, Starting on Mon03/14/25 at 2025, Use as first line agent for constipation. Do Not Crush or Chew if administering orally due to bitter taste. May be crushed if given via tube. 1751 (Given - Provider: Kaylie Denny RN) sodium chloride (OCEAN) 0.65 % nasal spray 1 spray 1 spray, Each Nare, As needed, irritation, Starting on Mon03/14/25 at 2026, Upright delivers a spray; Horizontally a stream; Upside down a drop. sodium chloride (PF) (NS) flush 5 mL(Linked Group 3) 5 mL, Intravenous, As needed, line care, Starting on Mon03/14/25 at 1124 sodium chloride 0.9% (NS)(Linked Group 3) 0-150 mL/hr, Intravenous, As needed, To flush line after IV infusions when no maintenance IV ordered or a compatibility issue. Infuse 20ml at the same rate as the secondary infusion, Starting on Mon03/14/25 at 1124, Run as Primary IV. NOT intended for KVO. Linked Groups Order Group 1: Maintain and Assess Indwelling Urethral Catheter (CANCELED) Routine, Every 12 hours, First occurrence on Mon03/18/25 at 0800, Removal Guidance: DO NOT REMOVE And lidocaine HCL (UROJET/GLYDO) 2 % applicator 1 ApplicationJump to med 1 Application, Intra-urethral, As needed, For insertion of Urinary Catheter, Starting on Mon03/17/25 at 2111, For 1 dose Group 2: naloxone (NARCAN) injection 0.1 mgJump to med 0.1 mg, Intravenous, As needed, opioid reversal, For respiratory rate less than or equal to 8 per minute., Starting on Mon03/14/25 at 1413, Mix nalOXone (NARCAN) 0.4 mg (1mL) with 9 mL of Normal Saline to total 10 mL. Administer 0.1 mg (2.5mL) IV Push every 2 minutes until respiratory rate is 10 or greater. And Notify physician (CANCELED) STAT, Until discontinued, Starting on Mon03/14/25 at 1415, Until Specified, Respiratory rate less than: 8, For respiratory rate less than or equal to 8, notify physician and/or appropriate staff for additional orders. And naloxone (NARCAN) injection 0.4 mgJump to med 0.4 mg, Intravenous, As needed, opioid reversal, patient is pulseless, breathless, and unresponsive, Starting on Mon03/14/25 at 1413, Call a code first, then administer naloxone dose undiluted IV Push over 30 seconds. Group 3: Insert peripheral IV (COMPLETED) KAJAL, Once, On Mon03/14/25 at 1125, For 1 occurrence And Saline lock IV (CANCELED) KAJAL, Once, On Mon03/14/25 at 1125, For 1 occurrence And sodium chloride (PF) (NS) flush 5 mLJump to med 5 mL, Intravenous, As needed, line care, Starting on Mon03/14/25 at 1124 And sodium chloride 0.9% (NS)Jump to med 0-150 mL/hr, Intravenous, As needed, To flush line after IV infusions when no maintenance IV ordered or a compatibility issue. Infuse 20ml at the same rate as the secondary infusion, Starting on Mon03/14/25 at 1124, Run as Primary IV. NOT intended for KVO. Goals (unrecognized section and content) Goals may be documented in a n alternate section Ordered Prescriptions (unrec ognized section and content) Prescription Sig Dispensed Refills Start Date End Da te benzonatate (TESSALON) 100 MG capsule Take 1 capsule by mouth 3 times daily as needed for Cough 15 capsule 0 10/30/2022 11/04/2022 levoFLOXacin (LEVAQUIN) 750 MG tablet Take 1 tablet by mouth daily for 5 days 5 tablet 0 10/30/2022 11/04/2022 Prescription Sig Dispensed Refills Start Date End Da te benzonatate (TESSALON) 100 MG capsule Take 1 capsule by mouth 3 times daily as needed for Cough 15 capsule 0 10/30/2022 11/04/2022 levoFLOXacin (LEVAQUIN) 750 MG tablet Take 1 tablet by mouth daily for 5 days 5 tablet 0 10/30/2022 11/04/2022 FOR RECORDS PERTAINING TO PATIENTS WHO ARE OR HAVE BEEN ENROLLED IN A CHEMICAL DEPENDENCY/SUBSTANCEABUSE PROGRAM, SOME INFORMATION MAY BE OMITTED. This clinical summary was aggregated from multiple sources. Caution should be exercised in using it in the provision of clinical care. This summary normalizes information from multiple sources, and as a consequence, information in this document may materially change the coding, format and clinical context of patient data. In addition, data may be omitted in some cases. CLINICAL DECISIONS SHOULD BE BASED ON THE PRIMARY CLINICAL RECORDS. [employer] [facility] [facility]. provides no warranty or guarantee of the accuracy or completeness of information in this document.
== END 2025-04-16 10:49 | disposition home or self-care (01) ==
LOC: WC 10:49
PROVIDERS: PCP Family Medicine; Visit Provider Podiatrist Foot & Ankle Surgery
DX: I70.261 Atherosclerosis of native arteries of extremities with gangrene, right leg (principal); L97.516 Non-pressure chronic ulcer of other part of right foot with bone involvement without evidence of necrosis
CPT/HCPCS: G0463

== ENCOUNTER 2025-04-30 09:37 | Outpatient (OUT) | payer MEDICARE, SELFPAY ==
--- OUTSIDE RECORDS SUMMARY | 2025-04-23 12:25 | XMS_ITS | Encounter Summary ---
Author Organization [facility] Address [address] [place] [address] Care Team Providers Care Small Parts Shaper Operator Name Role Phone Nikko Bird MD Primary Care Provider [phone] System, Provider Not In Unavailable Unavaila ble Reason for Referral * Cardio (Routine) - Pending Review Specialty Diagnoses / Procedures Referred By Jason christie Referred To Contact Cardiology Diagnoses PVD (peripheral vascular disease) Critical lower limb ischemia (HCC) Procedures US Duplex Bypass Graft LE Bilateral Gracy Millan MD [address] [place] [address] Phone: tel: fax: Referral ID Status Reason Start Date Expiration Date V isits Requested Visits Authorized [id number] Pending Review 04/03/2025 04/03/2026 1 1 Reason for Visit * Cardio (Routine) - Pending Review Specialty Diagnoses / Procedures Referred By Jason christie Referred To Contact Cardiology Diagnoses PVD (peripheral vascular disease) Critical lower limb ischemia (HCC) Procedures US Duplex Bypass Graft LE Bilateral Gracy Millan MD [address] [place], [place] [id number] Phone: tel: fax: Referral ID Status Reason Start Date Expiration Date V isits Requested Visits Authorized [id number] Pending Review 04/03/2025 04/03/2026 1 1 Encounter Details Date Type Department Care Team (Late st Contact Info) Description 04/23/2025 12:25 PM EDT - 04/23/2025 11:59 PM EDT Hospital Encounter [facility] [address] [place] [address] Gracy Millan MD [address] [place] [address] Discharge Disposition: Home Social History Tobacco Use Types Packs/Day Years Used Date Smoking Tobacco: Never Smokeless Tobacco: Never Alcohol Use Standard Drinks/Week Comments Not Currently 0 (1 standard drink = 0.6 oz pur e alcohol) [facility] Utilities Answer Date Recorded In the [...] any time in the past 12 m [facility], were you homeless or living in a correction (including now)? No 03/14/2025 Sex and Gender Information Value Date Recorded Sex Assigned at Not on file Legal Sex Male 2:37 PM EDT Gender Identity Male 09/04/2018 8:23 PM EST Sexual Orientation Straight 09/04/2018 8: 23 PM EST documented as of this encounter Medications at Time of Discharge amoxicillin-clav ulanate (AUGMENTIN) 500-125 mg per tablet 04/16/2025 aspirin 81 mg cap Take 1 (one) capsule (81 mg total) by mouth daily . 11/27/2019 azelastine (ASTELIN) 137 mcg (0.1 %) nasal spray 1 (one) spray by Each Nare route daily . Calmoseptine 0.44-20.6 % Oint Apply 1 Application topically daily as needed . 06/27/2023 furosemide (LASIX) 20 MG tabletIndication s:edema Take 1 (one) tablet (20 mg total) by mouth daily as needed Reasons: visible water retention. losartan (COZAAR) 50 MG tablet Take 1 (one) tablet (50 mg total) by mouth daily . metoprolol tartrate (LOPRESSOR) 50 MG tablet Take 1 (one) tablet (50 mg total) by mouth 2 (two) times a day . naloxone (NARCAN) 4 mg/actuation [place] Administer 1 spray into one nostril for known or suspected opioid overdose. If patient worsens or does not respond, may repeat in 2-3 minutes. . 2 each 03/21/2025 nitroGLYCERIN (NITROSTAT) 0.[address] 1 tablet as needed by sublingual route. 12/07/2022 omeprazole (PRILOSEC) 20 MG capsule Take 1 (one) capsule (20 mg total) by mouth daily . 11/27/2019 ondansetron (ZOFRAN) 4 MG tablet 04/21/2025 oxyCODONE-acetam inophen (PERCOCET) 5-325 mg per tablet Take 1 (one) tablet by mouth every 6 (six) hours as needed for pain . 04/03/2025 polyethylene glycol (MIRALAX) 17 gram powder Take 17 (seventeen) g by mouth daily . 09/04/2011 rivaroxaban (XARELTO) 2.5 mg tablet Take 1 (one) tablet (2.5 mg total) by mouth 2 (two) times a day . 11/27/2019 SantyL ointment 04/21/2025 sulfamethoxazole -trimethoprim (BACTRIM,SEPTRA) 400-80 mg per tablet 04/16/2025 tamsulosin (FLOMAX) 0.4 mg capsule Take 1 (one) capsule (0.4 mg total) by mouth daily . zolpidem (AMBIEN) 10 mg tablet Take 1 (one) tablet (10 mg total) by mouth nightly as needed . 09/30/2019 documented as of this encounter Plan of Treatment Not on file documented as of this encounter Procedures Procedure Name Priority Date/Time Associated Diagnosis Comments US DUPLEX LE BYPASS GRAFT COMPL BILAT Routine 04/23/2025 2:18 PM EDT PVD (peripheral vascular disease) Critical lower limb ischemia (HCC) documented in this encounter Results * US Duplex Bypass Graft LE Bilateral (04/23/2025 2:18 PM EDT) 04/23/2025 12:5 3 PM EDT Narrative FUJI SYNAPSE CV - 04/23/2025 2:41 PM EDT Patient Info Name: Tristin Gray Age: 85 years : 1940 Gender: Male Exam Date: 04/23/2025 12:53 PM Patient Status: OP SERIES Site Location: [facility] Indications I73.9 - Peripheral vascular disease, unspecified I70.229 - Atherosclerosis of [place] arteries of extremities with rest pain, unspecified extremity Procedure Description 43054 Duplex scan of lower extremity arteries or arterial bypass grafts using B-mode, color and spectral Doppler; unilateral or limited study. Maintenance Supervisor 2Nd Shift: Jigna Vera RDMS, RVT Staff Ordering Physician: Gracy Millan MD, RPVI Conclusions * Right. * Less than 50% stenosis in the right femoral-peroneal bypass graft. * Low velocities noted in the right inflow artery and bypass graft. * Left. * Less than 50% stenosis in the left femoral-peroneal bypass graft. * A left proximal calf, mixed echogenic, non-vascular lesion measuring 5.1x3.4 cm noted. Correlate clinically. Prior Study Date: 03/14/2025 Measurements RIGHT YAMILE Index: 0.96 LEFT YAMILE Index: 0.61 Graft Measurements RIGHT Inflow Artery PSV: 47 RIGHT Inflow Artery EDV: 0 RIGHT Inflow Artery Segment: SFA RIGHT Prox Anastomosis PSV: 24 RIGHT Prox Anastomosis EDV: 0 RIGHT Prox Graft PSV: 24 RIGHT Prox Graft EDV: 4 RIGHT Mid Graft PSV: 37 RIGHT Mid Graft EDV: 0 RIGHT Distal Graft PSV: 50 RIGHT Distal Graft EDV: 6 RIGHT Distal Anastomosis PSV: 57 RIGHT Distal Anastomosis EDV: 8 RIGHT Outflow Artery PSV: 79 RIGHT Outflow Artery EDV: 11 RIGHT Outflow Artery Segment: Gabriela LEFT Inflow Artery Segment: MANAGER FILE LEFT Inflow Artery PSV: 126 LEFT Inflow Artery EDV: 0 LEFT Prox Anastomosis PSV: 152 LEFT Prox Anastomosis EDV: 0 LEFT Prox Graft PSV: 109 LEFT Prox Graft EDV: 0 LEFT Mid Graft PSV: 62 LEFT Mid Graft EDV: 0 LEFT Distal Graft PSV: 56 LEFT Distal Graft EDV: 6 LEFT Distal Anastomosis PSV: 73 LEFT Distal Anastomosis EDV: 8 LEFT Outflow Artery Segment: Gabriela LEFT Outflow Artery PSV: 75 LEFT Outflow Artery EDV: 11 Report Signatures Finalized by Manuel Leonard MD, RPVI, RVT on 04/23/2025 02:41 PM Procedure Note Manuel Leonard MD - 04/23/2025 Patient Info Name: Tristin Gray Age: 85 years : 1940 Gender: Male Exam Date: 04/23/2025 12:53 PM Patient Status: OP SERIES Site Location: [facility] Indications I73.9 - Peripheral vascular disease, unspecified I70.229 - Atherosclerosis of [place] arteries of extremities withrest pain, unspecified extremity Procedure Description 25950 Duplex scan of lower extremity arteries or arterial bypassgrafts using B-mode, color and spectral Doppler; unilateral or limited study. Maintenance Supervisor 2Nd Shift: Jigna Vera RDMS, RVT Staff Ordering Physician: Gracy Millan MD, [place] Conclusions * Right. * Less than 50% stenosis in the right femoral-peroneal bypass graft. * Low velocities noted in the right inflow artery and bypass graft. * Left. * Less than 50% stenosis in the left femoral-peroneal bypass graft. * A left proximal calf, mixed echogenic, non-vascular lesion measuring 5.1x3.4 cm noted. Correlate clinically. Prior Study Date: 03/14/2025 Measurements RIGHT YAMILE Index: 0.96 LEFT YAMILE Index: 0.61 Graft Measurements RIGHT Inflow Artery PSV: 47 RIGHT Inflow Artery EDV: 0 RIGHT Inflow Artery Segment: SFA RIGHT Prox Anastomosis PSV: 24 RIGHT Prox Anastomosis EDV: 0 RIGHT Prox Graft PSV: 24 RIGHT Prox Graft EDV: 4 RIGHT Mid Graft PSV: 37 RIGHT Mid Graft EDV: 0 RIGHT Distal Graft PSV: 50 RIGHT Distal Graft EDV: 6 RIGHT Distal Anastomosis PSV: 57 RIGHT Distal Anastomosis EDV: 8 RIGHT Outflow Artery PSV: 79 RIGHT Outflow Artery EDV: 11 RIGHT Outflow Artery Segment: Gabriela LEFT Inflow Artery Segment: MANAGER FILE LEFT Inflow Artery PSV: 126 LEFT Inflow Artery EDV: 0 LEFT Prox Anastomosis PSV: 152 LEFT Prox Anastomosis EDV: 0 LEFT Prox Graft PSV: 109 LEFT Prox Graft EDV: 0 LEFT Mid Graft PSV: 62 LEFT Mid Graft EDV: 0 LEFT Distal Graft PSV: 56 LEFT Distal Graft EDV: 6 LEFT Distal Anastomosis PSV: 73 LEFT Distal Anastomosis EDV: 8 LEFT Outflow Artery Segment: Gabriela LEFT Outflow Artery PSV: 75 LEFT Outflow Artery EDV: 11 Report Signatures Finalized by Manuel Leonard MD, RPVI, RVT on 04/23/2025 02:41 PM us Gracy Millan MD CV VASCULAR ORDERABLES Fin al Result FUJI SYNAPSE CV documented in this encounter Visit Diagnoses Diagnosis PVD (peripheral vascular disease) Unspecified peripheral vascular disease Critical lower limb ischemia (HCC) Unspecified circulatory system disorder documented in this encounter Additional Health Concerns Assessment Noted Time PHQ-2 Depression Total Score: 0 03/15/20 25 8:30 PM EDT documented as of this encounter Care Teams Small Parts Shaper Operator Relationship Specialty Start Date End Date Nikko Bird MD [address] [place] [address] PCP - General Family Medicine 09/04/18 System, Provider Not In Cardroom Drawing Runner 11/09/22 documented as of this encounter
--- OUTSIDE RECORDS SUMMARY | 2025-04-23 12:25 | XMS_ITS | Encounter Summary ---
Author Organization [facility] Address [address] [place] [address] Care Team Providers Care Travel Counselor Name Role Phone Nikko Bird MD Primary Care Provider [phone] System, Provider Not In Unavailable Unavaila ble Reason for Referral * Cardio (Routine) - Pending Review Specialty Diagnoses / Procedures Referred By Contac t Referred To Contact Cardiology Diagnoses PVD (peripheral vascular disease) Critical lower limb ischemia (HCC) Procedures US Doppler ankle/brachial index Gracy Millan MD [address] [place] [address] Phone: tel: fax: Referral ID Status Reason Start Date Expiration Date V isits Requested Visits Authorized [id number] Pending Review 04/03/2025 04/03/2026 1 1 Reason for Visit * Cardio (Routine) - Pending Review Specialty Diagnoses / Procedures Referred By Contac t Referred To Contact Cardiology Diagnoses PVD (peripheral vascular disease) Critical lower limb ischemia (HCC) Procedures US Doppler ankle/brachial index Gracy Millan MD [address] [place], [place] [id number] Phone: tel: fax: Referral ID Status Reason Start Date Expiration Date V isits Requested Visits Authorized [id number] Pending Review 04/03/2025 04/03/2026 1 1 Encounter Details Date Type Department Care Team (Late st Contact Info) Description 04/23/2025 12:25 PM EDT - 04/23/2025 11:59 PM EDT Hospital Encounter [facility] [address] [place] [address] Gracy Millan MD [address] [place] [address] Discharge Disposition: Home Social History Tobacco Use Types Packs/Day Years Used Date Smoking Tobacco: Never Smokeless Tobacco: Never Alcohol Use Standard Drinks/Week Comments Not Currently 0 (1 standard drink = 0.6 oz pur e alcohol) [facility] Utilities Answer Date Recorded In the [...] a day . naloxone (NARCAN) 4 mg/actuation [place] Administer 1 spray into one nostril for [...] 12:53 PM Patient Status: OUTPATIENT Site Location: [facility] Indications I73.9 - Peripheral vascular disease, unspecified I70.229 - Atherosclerosis of [place] arteries of extremities with rest pain, unspecified extremity Procedure Description 22608 Limited bilateral noninvasive physiologic studies of upper or lower extremity arteries with bidirectional Doppler/PVR waveform analysis at 1-2 levels. Promotional Marketing Agent: Ying Fiore RDCS, T Staff Ordering Physician: [...] Segmental BP RIGHT Brachial A mmH RIGHT PANTOGRAPH ENGRAVER mmH RIGHT PANTOGRAPH ENGRAVER Index: 0.96 RIGHT DPA mmH RIGHT DPA Index: 0.92 RIGHT YAMILE Index: 0.96 LEFT Brachial A mmH LEFT PANTOGRAPH ENGRAVER Index: 0.48 LEFT PANTOGRAPH ENGRAVER mmH LEFT DPA Index: 0.61 LEFT DPA mmH LEFT YAMILE Index: 0.61 Doppler RIGHT PANTOGRAPH ENGRAVER Waveform: Multiphasic RIGHT DPA Waveform: Multiphasic LEFT PANTOGRAPH ENGRAVER Waveform: Monophasic LEFT DPA Waveform: Monophasic , PVR RIGHT Ankle Grade: Abnormal RIGHT Transmetarsal Grade: Abnormal LEFT Ankle Grade: Abnormal Report Signatures Finalized by Nemo Conner MD, PHD, RVT on 04/23/2025 02:41 PM Procedure Note Nemo Conner MD - 04/23/2025 Patient Info Name: Tristin Gray Age: 85 years : 1940 Gender: Male Exam Date: 04/23/2025 12:53 PM Patient Status: OUTPATIENT Site Location: [facility] Indications I73.9 - Peripheral vascular disease, unspecified I70.229 - Atherosclerosis of [place] arteries of extremities withrest pain, unspecified extremity Procedure Description 51417 Limited bilateral noninvasive physiologic studies of upper orlower extremity arteries with bidirectional Doppler/PVR waveform analysis at1-2 levels. Promotional Marketing Agent: Ying Fiore RDCS, RVT Staff Ordering Physician: [...] Segmental BP RIGHT Brachial A mmH RIGHT PANTOGRAPH ENGRAVER mmH RIGHT PANTOGRAPH ENGRAVER Index: 0.96 RIGHT DPA mmH RIGHT DPA Index: 0.92 RIGHT YAMILE Index: 0.96 LEFT Brachial A mmH LEFT PANTOGRAPH ENGRAVER Index: 0.48 LEFT PANTOGRAPH ENGRAVER mmH LEFT DPA Index: 0.61 LEFT DPA mmH LEFT YAMILE Index: 0.61 Doppler RIGHT PANTOGRAPH ENGRAVER Waveform: Multiphasic RIGHT DPA Waveform: Multiphasic LEFT PANTOGRAPH ENGRAVER Waveform: Monophasic LEFT DPA Waveform: Monophasic , [...] documented as of this encounter Care Teams Travel Counselor Relationship Specialty Start Date End Date Nikko Bird MD [address] [place] [id number] PCP - General Family Medicine 09/04/18 System, Provider Not In Transmitter Engineer In Charge 11/09/22 documented as of this encounter
--- OUTSIDE RECORDS SUMMARY | 2025-04-23 15:15 | XMS_ITS | Encounter Summary ---
Author Organization [facility] Address [address] [place] [address] Care Team Providers Care Field Specialist Name Role Phone Nikko Bird MD Primary Care Provider [phone] System, Provider Not In Unavailable Unavaila ble Reason for Visit * Reason Comments Wound Check POST-OP - FU - WOUND CHECK - S/P R FEM-TIB BYPASS, 03/17 - BLE DUPLEX GRAFT, YAMILE'S PRIOR APPT TODAY - APPT PER KULDEEP BOX Encounter Details Date Type Department Care Team (Late st Contact Info) Description 04/23/2025 3:15 PM EDT Follow-Up [facility] [id number] [place] [phone] Gracy Millan MD [facility] [address] [address] Critical lower limb ischemia (HCC) (Primary Dx) Social History Tobacco Use Types Packs/Day Years Used Date Smoking Tobacco: Never Smokeless Tobacco: Never Alcohol Use Standard Drinks/Week Comments Not Currently 0 (1 standard drink = 0.6 oz pur e alcohol) [facility] Utilities Answer Date Recorded In [...] any time in the past 12 m [facility], were you homeless or living in a alf (including now)? No 03/14/2025 Sex and Gender Information Value Date Recorded Sex Assigned at Not on file Legal Sex Male 2:37 PM EDT Gender Identity Male 09/04/2018 8:23 PM EST Sexual Orientation Straight 09/04/2018 8: 23 PM EST documented as of this encounter Last Filed Vital Signs Vital Sign Reading Time Taken Comments Blood Pressure 162/72 04/23/2025 2:36 PM EDT Pulse 64 04/23/2025 2:36 PM EDT Temperature - - Respiratory Rate 16 04/23/2025 2:30 PM EDT Oxygen Saturation 97% 04/23/2025 2:30 PM EDT Inhaled Oxygen Concentration - - Weight 111.1 kg (245 lb) 04/23/2025 2:30 PM EDT Height 188 cm (6' 2 ) 04/23/2025 2:30 PM EDT Body Mass Index 31.46 04/23/2025 2:30 PM EDT documented in this encounter Progress Notes * Gracy Millan MD - 04/23/2025 3:00 PM EDT I saw Mr. Gray in office today for a follow-up visit. He is an 85-year-old gentleman well-known to me in whom I did a right SFA to peroneal bypass using left cephalic vein about 1mo ago. L fem tib remotely by me for similar circumstance. 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 He is now on oral abx, doing wound care under the care of a resume specialist. He is on his ASA, xarelto and statin. BP (!) 162/72 (BP Location: Left arm, Patient Position: Sitting, BP Cuff Size: X-large Adult) Pulse 64 Resp 16 Ht 6' 2 Wt 111.1 kg (245 lb) SpO2 97% BMI 31.46 kg/m?? NAD Breathing comfortably Feet WWP R hallux with fibrinous based ulcer and exposed bone, rim of pink granulation tissue. YAMILE R 0.95 No flow limiting stenosis in either bypass A/P: Ok to undergo toe amp which might be the best path forward for him in light of everything. Cont OMT and surveillance with YAMILE and R bypass in 3mo. Ok to have done close to home. documented in this encounter Plan of Treatment Not on file documented as of this encounter Visit Diagnoses Diagnosis Critical lower limb ischemia (HCC)- Primary Unspecified circulatory system disorder documented in this encounter Additional Health Concerns Assessment Noted Time PHQ-2 Depression Total Score: 0 03/15/20 25 8:30 PM EDT documented as of this encounter Care Teams Field Specialist Relationship Specialty Start Date End Date [place], Rugen M, MD [address] [place] [address] PCP - General Family Medicine 09/04/18 System, Provider Not In Hot Pipe Gauger 11/09/22 documented as of this encounter
--- OUTSIDE RECORDS SUMMARY | 2025-04-30 09:40 | XMS_ITS ---
Author Organization [facility] Address [address] [place] [address] Care Team Providers Care Pulp Press Tender Name Role Phone Nikko Bird MD Primary Care Provider [phone] Active Problems Problem Noted Date Diagnosed Date Bronchiectasis, uncomplicated 11/04/2024 Acquired absence of left leg below knee 07/22/20 24 Other complications of amputation stump 07/22/20 24 Coronary artery disease 06/11/2024 NSTEMI (non-ST elevated myocardial infarction) 1 Hx of CABG 05/28/2024 Secondary hypercoagulable state 05/13/2024 Pulmonary hypertension, unspecified 04/26/2024 Acute cystitis without hematuria 03/21/2024 Overview (04/22/2024): Last Assessment & Plan: Add Probiotic to help replenish the good bacteria that are destroyed by the Antibiotics Florastor Florajen Align or try Activia in Yogurt Probiotics reduce the risk of antibiotic induced diarrhea Other thrombophilia 03/21/2024 Overview (04/22/2024): Last Assessment & Plan: Has blood thinner Flu vaccine need 06/06/2023 10/09/2023 Routine general medical examination at [facility] 06/06/2023 10/09/2023 Overview (10/09/2023): Last Assessment & Plan: Colonoscopy every 10 years or Cologuard every [...] Ultrasound of Aorta to screen for Anuerysm AAA (abdominal aortic aneurysm) 04/09/2023 10/09/2023 Overview (10/09/2023): Last Assessment & Plan: Sees Cardiology Has follow up with cardiology and do 6 month regular US Acute exacerbation of chronic obstructive pulmon katherine disease 04/09/2023 10/09/2023 Abnormal radiographic examination 04/09/2023 10/09/2023 Acute on chronic heart failu re with preserved ejection fraction 04/09/2023 10/09/2023 Arthritis 04/09/2023 10/09/2023 Asthmatic bronchitis 04/09/2023 10/09/2023 Carotid artery stenosis 04/09/2023 10/09/19 24 Overview (10/09/2023): Last Assessment & Plan: Getting Carotid dopplers Cataract 04/09/2023 10/09/2023 Chronic kidney disease due to hypertension 04/0910/09/2023 Constipation 04/09/2023 10/09/2023 Elevated erythrocyte sedimentation rate 04/09/20 23 10/09/2023 Left sciatic nerve pain 04/09/2023 10/09/19 24 Neuropathy 04/09/2023 10/09/2023 Other chronic pain 04/09/2023 10/09/2023 Paresthesia of skin 04/09/2023 10/09/2023 Paroxysmal atrial fibrillation 04/09/2023 0 10/09/2023 Phantom limb pain 04/09/2023 10/09/2023 Polymyalgia rheumatica 04/09/2023 Primary osteoarthritis of right hip 04/09/2023 10/09/2023 Seasonal allergic rhinitis 04/09/202310/09 Sinusitis 04/09/2023 10/09/2023 Overview (10/09/2023): Last Assessment & Plan: I discussed with patient that while on prednisone, do not take any NSAIDs like Ibuprofen, Naprosyn, Alleve or motrin. Watch for any side effects like abdominal pain and nausea. Take the prednisone with food or milk. Prednisone may increase appetite. While on prednisone, watch for any sugar elevations. Stage 3a chronic kidney disease 04/09/2023 10/09/2023 Chronic diastolic (congestive) heart failure Insomnia 01/19/2023 04/04/2023 Lumbosacral spondylosis without myelopathy 01/1904/04/2023 Mitral valve regurgitation 11/21/2022 Inguinal pain 11/21/2022 Snoring 11/21/2022 Posterior tibial tendinitis of right leg 023 Hematoma of arm, left, initial encounter 023 Overview (11/21/2022): Last Assessment & Plan: 82 yo RHD [...] lobe of lung 11/03/2022 Pulmonary nodule 01/21/2022 Cellulitis 01/18/2022 Thoracic aortic aneurysm without rupture 022 Coronary artery disease invo lving [place] coronary artery of [place] heart without angina pectoris 07/15/2021 S/P total hip arthroplasty 07/15/2021 S/P transmetatarsal amputation of foot, left Aortic valve regurgitation 01/01/2021 Peripheral arterial occlusive disease 01/09/2019 Gangrene of left foot 10/04/2018 Coronary artery disease invo lving coronary bypass graft of [place] heart without angina pectoris 09/05/2018 Overview (11/21/2022): Last Assessment & Plan: Patient with remote coronary artery bypass grafting to 3 vessels. Patient denies chest pain at this time. Hypercholesteremia 09/05/2018 Overview (11/21/2022): Last Assessment & Plan: Patient with history of hypercholesteremia. Plan: Continue high intensity statin medication Risk factor modification. Class 1 obesity with body ma ss index (BMI) of 31.0 to 31.9 in adult 09/05/2018 Overview (11/21/2022): Last Assessment & Plan: Patient with BMI [...] BMI <30. Critical lower limb ischemia 09/04/2018 Overview (11/21/2022): Last Assessment & Plan: Pt s/p LLE angiogram with Dr Hahn who feels that the pt has no further endovascular options. He has consulted Dr. Millan for a possible tibial bypass. Pt s/p LLE critical limb ischemia [place] class 4 rest pain with distal discoloration to his toes. Pt is s/p L pop angioplasty with stent placement 08/09 at [facility] in [place], [place]. Pt was placed on Xarelto and [...] high intensity statin medication. Will sign off Peripheral arterial disease 08/10/2018 Overview (11/21/2022): Last Assessment & Plan: S/P angiogram with [...] 2022 was known to be reduced (0.5) Pure hypercholesterolemia 08/10/2018 Overview (11/21/2022): Last Assessment & Plan: Resume home medications Follow up after discharged with PCP Obesity (BMI 30.0-34.9) 08/10/2018 Overview (11/21/2022): Last Assessment & Plan: Diet and lifestyle modifications strongly encouraged Follow up after discharged with PCP for further treatment options Intermittent claudication 08/08/2018 Overview (11/21/2022): Added automatically from request for surgery [id number] Last Assessment & Plan: Heparin drip initiated, [...] telemetry as ordered Pain management Orthopnea 03/31/2016 Contusion 07/15/2014 Abdominal pain 07/11/2014 Hypertensive disorder 05/19/2014 Overview (11/21/2022): Last Assessment & Plan: Resume home medications as ordered Follow up after discharged with PCP Labetalol PRN for SBP> 160 Monitor VS as ordered Last Assessment & Plan: Patient with history of hypertension. Blood pressure at this time 132/62. Plan: Continue medications as prescribed. Disorder of lipid metabolism 11/21/2013 Heartburn 09/10/2013 Chest pain 08/30/2013 Coronary atherosclerosis 08/30/2013 Mixed hyperlipidemia 08/30/2013 Dyspnea 08/30/2013 Preinfarction syndrome 08/30/2013 Avascular necrosis of bone of hip 09/04/2011 Overview (11/21/2022): Right hip Herpes zoster 09/04/2011 Pain of left lower extremity 09/04/2011 Overview (11/21/2022): Last Assessment & Plan: -Presented to [facility] 09/04/2018 as a transfer from [place] for second opinion regarding left lower extremity [...] in pain -Reports pain is uncontrolled with HIV/AIDS CARE NURSE Dilaudid pump, and pain does not decrease [...] paradise Fernandez RN -Please call with questions Prostate cancer 09/04/2011 Chronic ischemic heart disease 07/04/2008 0 10/09/2023 Impotence of organic origin 07/04/200809/28 Benign essential hypertension 07/04/2008 Overview (04/22/2024): Last Assessment & Plan: Our specific goals, [...] taking them as prescribed. DASH diet handouts Current Treatment and Therapy Plans No current plan information found. Past Treatment and Therapy Plans No past plan information found. Lifetime Dose Tracking * Chemical Lifetime Dose Automatic Entry Manual Entr y Fluoro Time 18.04 minutes 0 minutes 18.04 minutes Air Kerma 1,177.89 mGy 0 mGy 1,177.89 mGy
--- OUTSIDE RECORDS SUMMARY | 2025-04-30 09:40 | XMS_ITS | Clinical Summary ---
Author Organization [facility] Address [address] [place] [address] Care Team Providers Care Internet Programmer Name Role Phone Nikko Bird MD Primary Care Provider [phone] Allergies Active Allergy Reactions Criticality Noted Date Comments Doxycycline 10/25/2018 Elevated blood pressure, GI intolerance/ nausea/vomiting Oxycodone Anaphylaxis High 11/24/2016 Medications albuterol 90 mcg/actuation inhaler 3 Active rivaroxaban (Xarelto) 2.5 mg tablet Take 2.5 mg by mouth in the morning and 2.5 mg in the evening. 0 Active losartan (Cozaar) 50 mg tablet Take 50 mg by mouth in the morning. Active aspirin 81 mg EC tablet Take 81 mg by mouth. Active oxyCODONE-acetamin ophen (Percocet) 5-325 mg tablet 3 Active ipratropium-albute roL (Duo-Neb) 0.5-2.5 mg/3 mL nebulizer solution 3 Active metoprolol tartrate (Lopressor) 50 mg tablet Take 50 mg by mouth in the morning and at bedtime. 3 Active zolpidem (Ambien) 10 mg tablet Take 10 mg by mouth if needed each day. 4 Active omeprazole (PriLOSEC) [address] capsule Take 20 mg by mouth in the morning. 4 Active montelukast (Singulair) 10 mg tablet Take 10 mg by mouth at bedtime. Active nitroglycerin (Nitrostat) 0.4 mg SL tabletIndications: Coronary artery disease involving inaja coronary artery of inaja heart without angina pectoris Place 1 tablet (0.4 mg) under the tongue every 5 (five) minutes if needed for chest pain. May repeat dose every 5 minutes for up to 3 doses total. 25 tablet 3 4 Active fluticasone (Flonase) 50 mcg/actuation nasal spray Administer 1 spray into each nostril in the morning. Shake gently. Before first use, prime pump. After use, clean tip and replace cap. Active furosemide (Lasix) 20 mg tablet Take 20 mg by mouth if needed. Active azelastine (Astelin) 137 mcg (0.1 %) nasal spray Administer 1 spray into each nostril two times daily. 5 Active atorvastatin (Lipitor) 80 mg tabletIndications: Mixed hyperlipidemia TAKE 1 TABLET EVERY MORNING 90 tablet 3 5 Active Active Problems Problem Noted Date Diagnosed [...] 06/06/2023 10/09/2023 [facility] 10/09/2023 Overview (10/09/2023): Last Assessment & [...] rupture 022 Coronary artery disease invo lving inaja coronary artery of inaja heart without angina pectoris 07/15/2021 S/P total hip arthroplasty 07/15/2021 S/P transmetatarsal amputation of foot, left Aortic valve regurgitation 01/01/2021 Peripheral arterial occlusive disease 01/09/2019 Gangrene of left foot 10/04/2018 Coronary artery disease invo lving coronary bypass graft of inaja heart without angina pectoris 09/05/2018 Overview (11/21/2022): [...] bypass. Pt s/p LLE critical limb ischemia [place] class 4 rest pain with distal discoloration to his toes. Pt is s/p L pop angioplasty with stent placement 08/09 at [facility] in [place], [place]. Pt was placed on Xarelto and [...] (11/21/2022): Added automatically from request for surgery [id number] Last Assessment & Plan: Heparin drip initiated, [...] (11/21/2022): Last Assessment & Plan: -Presented to [facility] 09/04/2018 as a transfer from [place] for second opinion regarding left lower extremity [...] in pain -Reports pain is uncontrolled with [employer] Dilaudid pump, and pain does not decrease [...] taking them as prescribed. DASH diet handouts Encounters Date Type Department Care Team Description 03/11/[address] [facility] [place] [address] [place] [address] Kassandra Vallejo CNP Mixed hyperlipidemia from Last 3 Months Immunizations Immunization Administration Dates Next Due Influenza, High Dose Seasona l, Preservative Free 06/21/2021,06/02/2020,06/06/2018,05/18 Influenza, High-dose Seasona l, Quadrivalent, Preservative Free 05/31/2022 Influenza, injectable, quadrivalent 05/22/2017 Influenza, trivalent, adjuvanted 06/18/2019 Moderna SARS-CoV-2 Vaccination 09/09/2021,2020,09/30/2020 Pneumococcal Conjugate PCV 13 05/28/2020, 015 Pneumococcal Polysaccharide PPV23 10/08/2020 Tdap 09/30/2019 Family History Medical History Relation Name Comments Coronary artery disease Other Hyperlipidemia Other Hypertension Other Relation Name Status Comments Other Social History Tobacco Use Types Packs/Day Years Used Date Smoking Tobacco: Never Smokeless Tobacco: Never Tobacco Cessation:Counseling Given: Not Answered Alcohol Use Standard Drinks/Week Comments Not Currently 0 (1 standard drink = 0.6 oz pur e alcohol) [place] Safety & Environment Answer Date Rec orded Fear of Current or Ex-Partner Not on file Emotionally Abused Not on file 10/19/2023 Physically Abused Not on file 10/19/2023 Sexually Abused Not on file 10/19/2023 Physically or Sexually Abused Not on file Sex and Gender Information Value Date Recorded Sex Assigned at Not on file Legal Sex Male 9:56 PM EDT Gender Identity Not on file Sexual Orientation Not on file Last Filed Vital Signs Vital Sign Reading Time Taken Comments Blood Pressure 156/76 12/18/2024 1:22 PM EDT Pulse 79 12/18/2024 1:22 PM EDT Temperature - - Respiratory Rate 16 07/10/2024 12:15 PM EST Oxygen Saturation 96% 12/18/2024 1:22 PM EDT Inhaled Oxygen Concentration - - Weight 112 kg (248 lb) 12/18/2024 1:22 PM EDT Height 188 cm (6' 2 ) 12/18/2024 1:22 PM EDT Body Mass Index 31.84 12/18/2024 1:22 PM EDT Plan of Treatment Health Maintenance Due Date Last Done Comments Medicare Annual Wellness (AWV) 1940 Depression Screening 1951 Zoster Vaccines (1 of 2) 1989 Fall Risk Screening 01/04/2004 COVID-19 Vaccine ( season) 2024 09/09/2021, 09/09/2021, 10/28/2020, Additional history exists Influenza Vaccine (#1) 2025 4, 06/06/2023, 05/31/2022, Additional history exists Adult Tetanus 09/30/2029 09/30/2019 Pneumococcal Vaccine: 50+ Years Completed 10/08/2020, 05/28/2020, 05/18/2015 HIB Vaccines Aged Out No longer eligi ble based on patient's age to complete this topic HPV Vaccines Aged Out No longer eligi ble based on patient's age to complete this topic IPV Vaccines Aged Out No longer eligi ble based on patient's age to complete this topic Meningococcal B Vaccine Aged Out No l onger eligible based on patient's age to complete this topic Meningococcal Vaccine Aged Out No alexandra shadi eligible based on patient's age to complete this topic Rotavirus Vaccines Aged Out No longer eligible based on patient's age to complete this topic Insurance [facility] MEDICARE ADVANTAGE Care Teams Internet Programmer Relationship Specialty Start Date End Date Nikko Bird MD [address] [place] [address] PCP - General 11/21/22
--- OUTSIDE RECORDS SUMMARY | 2025-04-30 09:40 | XMS_ITS | Encounter Summary ---
Author Organization [facility] Address [address] [place] [address] Care Team Providers Care Pbx Teacher Name Role Phone Nikko Bird MD Unavailable Nikko Bird MD Primary Care Provider [phone] Elaine Saab LPN Unavailable Encounter Details Date Type Department Care Team (Late st Contact Info) Description 04/21/2025 Patient Outreach [facility] [address] [place] [phone] Elaine Saab LPN [address] [facility] [address] [place] [address] Social History Tobacco Use Types [...] Recorded Patient Health Questionnaire-2 Score 0 04/14/2025 [facility] - Occupational [...] Progress Notes * Elaine Saab LPN - 04/21/2025 9:10 AM EDT Spoke with pt for week;y monitoring. Pt states doing ok. Says toe is looking a little better. Dr. Feliz ordered Thera-honey for area and pt states he thinks its helping. He shares his insurance won't pay for this and they say he has to contact Dr. Garcia office to do something so that it can be approved. He plans on doing this today. Pt has sample right now, but it won't last. Pt lets me know he goes to see Vascular Dr, Dr. Millan on Monday. Pt states his only problem right now is that he has nausea at times still and is out of nausea medication. I let him know I will ask PCP if he may have refill for this. Pt denies and further needs or concerns. Flowsheet Row Patient Outreach from 04/21/[address] [facility] with Elaine Saab LPN Week Number Call Week 4 Call Was patient contacted successfully? Yes Have you had any urgent care/ED/Hospital visits since discharge? No Any medication changes since last contact? No Is the patient taking all medications as directed? Yes Have you visited your PCP since discharge? Yes Have you visited your specialist since discharge? Yes Does patient have home health? no What is the patient's perception of their health status since discharge? Improving Is the patient/caregiver able to teach back the hierarchy of who to call/visit for symptoms/problems? PCP, Specialist, Home Health nurse, Urgent Care, ED, 911 Yes documented in this encounter Plan of Treatment Not on file documented as of this encounter Visit Diagnoses Diagnosis Chronic diastolic (congestive) heart failure (HCC)- Primary Stage 3a chronic kidney disease (CMS-HCC) documented in this encounter Additional Health Concerns Assessment Noted Time PHQ-9 Depression Total Score: 0 04/26/20 24 9:00 AM EDT documented as of this encounter Care Teams Pbx Teacher Relationship Specialty Start Date End Date Nikko Bird MD [address] [facility] [address] [place] [address] PCP - [employer] 08/28/17 Nikko Bird MD [address] [facility] [address] [place] [address] PCP - General Family Medicine 03/09/23 Elaine Saab LPN [address] [facility] [address] [place] [address] 11/15/24 documented as of this encounter
--- OUTSIDE RECORDS SUMMARY | 2025-04-30 09:40 | XMS_ITS | Clinical Summary ---
Author Organization [facility] Healthcare Address [address] [place] [address] Care Team Providers Care Belt Worker Name Role Phone Nikko Lovelace MD Unavailable Nikko Lovelace MD Primary Care Provider [phone] Elaine Saab LPN Unavailable Allergies Active Allergy [...] (Barrier Cream) 100 g 3 024 Active losartan (Cozaar) 50 MG tabletIndication s:Benign [...] moderate pain 120 tablet 025 2024 Active rivaroxaban (Xarelto) 2.5 MG tabletIndication s:Paroxysmal atrial fibrillation (HCC) TAKE 1 TABLET TWICE DAILY 180 tablet 3 025 Active azithromycin (Zithromax) 250 MG tabletIndication s:Acute non-recurrent sinusitis, unspecified location Take 2 tablets (500 mg) by mouth Daily for 1 day, THEN 1 tablet (250 mg) Daily for 4 days. 6 tablet 025 2024 Active metoprolol tartrate (Lopressor) 50 MG tabletIndication s:Benign essential hypertension TAKE 1 TABLET IN THE MORNING AND 1 TABLET BEFORE BEDTIME. 180 tablet 3 025 Active metoprolol tartrate (Lopressor) 50 MG tabletIndication s:Benign essential hypertension Take 1 tablet (50 mg) by mouth in the morning and 1 tablet (50 mg) before bedtime. 180 tablet 3 024 2024 Discontinued rivaroxaban (Xarelto) 2.5 MG tabletIndication s:Paroxysmal atrial fibrillation (HCC) TAKE 1 TABLET TWICE DAILY 200 tablet 3 025 2024 Discontinued ondansetron ODT (Zofran-ODT) 4 MG disintegrating tabletIndication [...] pain 15 tablet 025 2024 Discontinued( Reorder) sulfamethoxazole -trimethoprim (Bactrim DS) 800-160 MG per tabletIndication s:Ischemic toe ulcer, right, with 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) Take 1 tablet by mouth in the morning and 1 tablet before bedtime. Do all this for 7 days. 14 tablet 025 2024 amoxicillin-clav ulanate (Augmentin) 875-125 MG tabletIndication s:Ischemic toe ulcer, right, with 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) Take 1 tablet (875 mg) by mouth in the morning and 1 tablet (875 mg) in the evening. Take with meals. Do all this for 7 days. 14 tablet 025 2024 ondansetron (Zofran) 4 MG tabletIndication s:Nausea and vomiting, unspecified vomiting type Take 1 tablet (4 mg) by mouth every 8 (eight) hours if needed for nausea or vomiting for up to 7 days 20 tablet 025 2024 Active Problems Problem Noted Date Diagnosed Date [...] absence of left leg below knee 07/22/20 Assessment & Plan (11/04/2024 11:23 AM EDT): S/p amputation with prosthesis Other complications of amputation stump 07/22/20 Assessment & Plan (11/04/2024 11:22 AM EDT): resolved Hx of CABG 05/28/2024 Secondary hypercoagulable state ([facility]) 2023 Pulmonary hypertension, unspecified 04/26/2024 Assessment & Plan (11/04/2024 11:25 AM EDT): Has water pills From COPD Other thrombophilia ([facility]) 03/21/2024 Assessment & Plan (03/21/2024 [...] bronchitis 04/09/2023 Atherosclerotic heart diseas e of [place] coronary artery without angina pectoris 04/09/2023 Carotid [...] PM EST): Pain meds effective Polymyalgia rheumatica ([facility]) 04/09/2023 Primary osteoarthritis of right hip 04/09/2023 [...] Posterior tibial tendinitis of right leg 023 Thoracic aortic aneurysm without rupture 022 [...] for a goal BMI <30. 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 He has consulted Dr. Millan for a possible tibial bypass. Pt s/p LLE critical limb ischemia [place] class 4 rest pain with distal discoloration to his toes. Pt is s/p L pop angioplasty with stent placement 08/09 at [facility] in [place], [place]. Pt was placed on Xarelto and [...] bypass. Pt s/p LLE critical limb ischemia [place] class 4 rest pain with distal discoloration to his toes. Pt is s/p L pop angioplasty with stent placement 08/09 at [facility] in [place], [place]. Pt was placed on Xarelto and [...] (06/05/2023): Added automatically from request for surgery [id number] Last Assessment & Plan: Heparin drip initiated, [...] management Added automatically from request for surgery [id number] Last Assessment & Plan: Heparin drip initiated, [...] the importance of taking them as prescribed. [employer] diet handouts Assessment & Plan (09/19/2023 10:45 [...] prescribed. DASH diet handouts Assessment & Plan (06/06/2023 11:20 AM [...] prescribed. DASH diet handouts Assessment & Plan (04/11/2023 11:30 AM [...] taking them as prescribed. DASH diet handouts Chronic ischemic heart disease 07/04/2008 Impotence [...] Gangrene of left foot 10/04/20182023 Hypercholesteremia 09/05/2018 Overview (06/05/2023): Last Assessment & Plan: [...] (06/05/2023): Last Assessment & Plan: -Presented to [facility] 09/04/2018 as a transfer from [place] for second opinion regarding left lower extremity pain and discoloration that was present two days prior to admit there on 08/30. s/p LLE angio with stent placement 08/09 -[facility] reviewed, patient prescribed Gabapentin 200 mg TID (last filled #540 tabs for 90 days 07/12/18) and Percocet 5/325 mg (#28 tabs for 7 days 08/23/18) written by Dr. Nikko Lovelace -Patient found lying in bed, writhing in pain -Reports pain is uncontrolled with C[employer] HISTORIAN Dilaudid pump, and pain does not decrease [...] questions Last Assessment & Plan: -Presented to [facility] 09/04/2018 as a transfer from [place] for second opinion regarding left lower extremity pain and discoloration that was present two days prior to admit there on 08/30. s/p LLE angio with stent placement 08/09 -[facility] reviewed, patient prescribed Gabapentin 200 mg TID (last filled #540 tabs for 90 days 07/12/18) and Percocet 5/325 mg (#28 tabs for 7 days 08/23/18) written by Dr. Nikko Lovelace -Patient found lying in bed, writhing in pain -Reports pain is uncontrolled with CULTURAL HISTORIAN Dilaudid pump, and pain does not decrease [...] Encounters Date Type Department Care Team Description 04/29/2025 Refill [facility] [address] [place] [address] Nikko Lovelace MD Benign essential hypertension 04/29/2025 Telephone [facility] [address] [place] [address] Sheree Murrell Medication Question (Has a terrible cold and runny nose wanted to know if you could zuly in a z-pack for him.) 04/21/2025 Telephone [facility] [address] [place] [address] Elaine Saab LPN 04/21/2025 Patient Outreach [facility] [address] [place] [address] Elaine Saab LPN 04/16/2025 Clinisync Result Encounter [facility] External Department Unsolicited Provider, Generic External Data 04/15/2025 8:00 AM EDT Ancillary Procedure [facility] [address] [place] [address] Osteomyelitis of right foot, unspecified type (HCC) 04/15/2025 Clinisync Result Encounter [facility] External Department Unsolicited Provider, Generic External Data 04/15/2025 Patient Outreach [facility] [address] [place] [phone] Elaine Saab LPN 04/15/2025 Results Follow-Up [facility] [address] [place] [address] Nikko Lovelace MD MR foot right wo IV contrast 04/15/2025 Travel 04/14/2025 1:30 PM EDT Office Visit [facility] [address] [place] [address] Nikko Lovelace MD PVD (peripheral vascular disease) with claudication (Primary Dx); Ischemic toe ulcer, right, with 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); Osteomyelitis of right foot, unspecified type (HCC) 04/14/2025 Travel 04/14/2025 Patient Outreach [facility] [address] [place] [phone] Elaine Saab LPN 04/10/2025 Abstract [facility] [address] [place] [address] Emmanuel Gonzalez DPM 04/10/2025 Telephone [facility] [address] [place] [address] Zoë King PA posible med interaction 04/10/2025 Abstract [facility] [address] [place] [address] Nikko Lovelace MD 04/09/2025 Abstract [facility] [address] [place] [address] Nikko Lovelace MD 04/09/2025 Telephone [facility] [address] [place] [address] Zoë King PA 04/09/2025 Refill [facility] [address] [place] [address] Zoë King PA Paroxysmal atrial fibrillation (HCC) 04/08/2025 11:30 AM EDT Office Visit [facility] [address] [place] [address] Zoë King PA PVD (peripheral vascular disease) with claudication (Primary Dx); Acquired absence of left foot (HCC); Ischemic toe ulcer, right, with 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) 04/08/2025 External Result Encounter [facility]S External Department Unsolicited Zoë King PA 04/08/2025 Abstract [facility] [address] [place] [address] Nikko Lovelace MD 04/08/2025 Bamboo flowsheet [facility] [address] [place] [address] Zoë King PA 04/08/2025 Travel 04/07/2025 Patient Outreach [facility] [address] [place] [phone] Elaine Saab LPN 04/03/2025 Refill [facility] [address] [place] [address] Nikko Lovelace MD PVD (peripheral vascular disease) with claudication 03/31/2025 1:45 PM EDT Office Visit [facility] [address] [place] [address] Nikko Lovelace MD PVD (peripheral vascular disease) with claudication; History of prostate cancer; Urinary hesitancy 03/31/2025 Travel 03/31/2025 Patient Outreach [facility] [address] [place] [address] Elaine Saab LPN 03/24/2025 Telephone [facility] [address] [place] [phone] Elaine Saab LPN 03/24/2025 Patient Outreach [facility] [place] [phone] Elaine Saab LPN 03/24/2025 Abstract [facility] [address] [facility] [address] [place] [address] Nikko Lovelace MD 03/20/2025 Abstract [facility] [address] [place] [address] Nikko Lovelace MD 03/17/2025 Abstract [facility] [address] [place] [address] Nikko Lovelace MD 03/12/2025 Abstract [facility] [address] [facility] [address] [place] [address] Nikko Lovelace MD 03/11/2025 Abstract [facility] [address] [place] [address] Nikko Lovelace MD 03/06/2025 Refill [facility] [address] [facility] [address] [place] [address] Mary Wilson, PIOTR History of prostate cancer; Urinary hesitancy 02/13/2025 [facility]ill [facility] [address] [facility] [address] [place] [address] Nikko Lovelace MD Primary insomnia; Other chronic pain; Lumbosacral spondylosis without myelopathy from Last 3 Months Immunizations Immunization Administration [...] Recorded Patient Health Questionnaire-2 Score 0 04/14/2025 [facility] [place] [facility] - Occupational Stress [...] any time in the past 12 m [facility], were you homeless or living in [...] 04/14/2025 1:27 PM EDT Plan of Treatment Health Maintenance Due Date Last Done Comments Medicare Annual Wellness (AWV) 04/26/2025 04/26/2024 , 06/06/2023 Influenza Vaccine (#1) 2025 , 06/06/2023, 05/31/2022, Additional history exists Pneumococcal Vaccine: 65+ Years Completed 10/08/2020, 05/28/2020, 05/18/2015 Procedures Procedure Name Priority Date/Time Associated Diagnosis Comments XR FOOT RT MIN 3V 04/16/2025 12: 49 PM EDT ALL C REACTIVE PROTEIN Routine 04/15/2025 1:47 PM EDT ALL BASIC METABOLIC PANEL Routine 04/15/2025 1:47 PM EDT ALL SED RATE Routine 04/15/2025 1:47 PM EDT ALL CBC WITH AUTO DIFF Routine 04/15/2025 1:47 PM EDT MR FOOT RIGHT WO IV CONTRAST Routine 04/15/2025 8:44 AM EDT Osteomyelitis of right foot, unspecified type (HCC) MECA Routine 04/08/2025 12:00 AM EDT HERPES SIMPLEX VIRUS 1 Routine 04/08/2025 12:00 AM EDT from Last 3 Months Results * XR FOOT RT MIN 3V (04/16/2025 12:49 PM EDT) Anatomical Region Laterality Modality Other 04/16/2025 12:4 9 PM EDT Narrative 04/16/2025 12:52 PM EDT The [address] [address] XRay Report Signed Patient: TRISTIN GRAY MR#: [id number] : 1940 Acct:[id number] Age/Sex: 85 / M ADM Date: 04/15/25 Loc: RAD Attending Dr: Savanna Feliz D.P.M. Ordering Physician: Savanna Feliz D.P.M. Date of Service: 04/15/25 Procedure(s): XR foot RT min 3V Accession Number(s): [id number] cc: NIKKO LOVELACE ; Savanna Feliz D.P.M. The [place] [address] Patient Name: TRISTIN GRAY MRN: [facility]:[id number] date: 1940 Sex: M Assigned Patient Location: [facility] Current Patient Location: Accession/Order Number: [id number] Exam Date: 04/16/2025 12:46 Report Date: 04/16/2025 12:49 At the request of: SAVANNA FELIZ DPJenni Procedure: XR foot RT min 3V 3 views right foot plain film with weightbearing COMPARISON:None HISTORY: Right great toe infection. ACUTE FINDINGS: Erosive changes of the medial portion of the tuft of the first toe. DEGENERATIVE CHANGE: Unremarkable SOFT TISSUE FINDINGS: Gauze on the first toe. Soft tissue swelling. No subcutaneous air. No radiodense foreign body. Ulceration. 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 Impression dictated by: Cristian Rodriguez M.D. 04/16/2025 12:49 PM Dictation Location: [place] [address] Electronically authenticated by: [id number] Y Date: 04/16/2025 12:49 Dictated By: Cristian Rodriguez D.O. Signed By: 04/16/25 1252 DD/ 1249 TD/TT: Scanner Operator: Procedure Note Radiology, Radiologist, - 04/16/2025 [place] [address] XRay Report Signed Patient: TRISTIN GRAYMR#: [id number] : 1940cct:[id number] Age/Sex: 85 / MADM Date: 04/15/25 Loc: RAD Attending Dr: Savanna Feliz D.P.M. Ordering Physician: Savanna Feliz D.P.M. Date of Service: 04/15/25 Procedure(s): XR foot RT min 3V Accession Number(s): [id number] cc: NIKKO LOVELACE ; Savanna Feliz D.P.M. [place] [address] Patient Name: TRISTIN GRAY MRN: [facility]:[id number] date: 1940 Sex: M Assigned Patient Location: [facility] Current Patient Location: Accession/Order Number: [id number] Exam Date: 04/16/2025 12:46 Report Date: 04/16/2025 12:49 At the request of: SAVANNA FELIZ DPJenni Procedure: XR foot RT min 3V 3 views right foot plain film with weightbearing COMPARISON:None HISTORY: Right great toe infection. ACUTE FINDINGS: Erosive changes of the medial portion of the tuft of thefirst toe. DEGENERATIVE CHANGE: Unremarkable SOFT TISSUE FINDINGS: Gauze on the first toe. Soft tissue swelling. No subcutaneous air. No radiodense foreign body. Ulceration. JOINT EFFUSION: None POSTOP CHANGES: None BONE MINERALIZATION: Adequate XR/XR foot RT min 3V IMPRESSION: Osteomyelitis of the medial aspect of the tuft of the firsttoe. Impression dictated by: Cristian Rodriguez M.D. 04/16/2025 12:49 PM Dictation Location: [place] [address] Electronically authenticated by: [id number] Y Date: 2:49 Dictated By: Cristian Rodriguez D.O. Signed By:04/16/25 1252 DD/ 1249 TD/TT: Scanner Operator: us Generic External Data Provider [facility] Final Result * (ABNORMAL) ALL SED RATE (04/15/2025 1:47 PM EDT) TBH SED RATE 53(H) <=20 mm/hr TBH 04/15/2025 1:47 PM EDT 04/15/2025 1:48 PM EDT Narrative [facility] - 04/15/2025 2:12 PM EDT us Generic External Data Provider [facility] F [facility]al Result [facility] * (ABNORMAL) ALL CBC WITH AUTO DIFF (04/15/2025 1:47 PM EDT) TB WBC 3.2(L) 4.0 - 11.0 10 3/uL TBH TBH RBC 3.78(L) 4.70 - 6.10 10 6/uL TBH TBH HGB 11.8(L) 14.0 - 18.0 g/dL TBH TBH HCT 35.1(L) 42.0 - 54.0 % TBH TBH MCV 92.9 80.0 - 94.0 fL TBH TBH MCH 31.2 25.9 - 34.0 pg TBH TBH MCHC 33.6 29.9 - 35.2 g/dL TBH TBH RDW 15.2(H) 11.0 - 15.0 % TBH TBH PLT 158 150 - 450 10 3/uL TBH TBH MPV 8.9(L) 9.5 - 13.5 fL TBH NEUTROPHILS PERCENT AUTO 49.9 43.0 - 75.0 % TBH LYMPHOCYTES PERCENT AUTO 24.1 20.5 - 60.0 % TBH MONOCYTES PERCENT AUTO 18.9(H) 1.7 - 12.0 % TBH TBH EO % 5.9 0.9 - 7.0 % TBH BASOPHILS PERCENT AUTO 0.6 0.2 - 2.0 % TBH IMMATURE GRANULOCYTES PCT AUTO 0.6(H) 0.0 - 0.5 % TBH NEUTROPHILS ABSOLUTE AUTO 1.6 1.4 - 6.5 10 3/uL TBH LYMPHOCYTES ABSOLUTE AUTO 0.8(L) 1.2 - 3.8 10 3/uL TBH MONOCYTES ABSOLUTE AUTO 0.6 0.3 - 0.8 10 3/uL TBH TBH EO # 0.2 0.0 - 0.7 10 3/uL TBH BASOPHILS ABSOLUTE AUTO 0.0 0.0 - 0.1 10 3/uL TBH IMMATURE GRANULOCYTES ABS AUTO 0.02 0.00 - 0.03 10 3/uL TBH 04/15/2025 1:47 PM EDT 04/15/2025 1:48 PM EDT Narrative [facility] - 04/15/2025 1:58 PM EDT Generic External Data Provider [facility] F inal Result Performing Organization Address [facility]/ZIP Co de Phone Number [facility] TB * (ABNORMAL) ALL C REACTIVE PROTEIN (04/15/2025 1:47 PM EDT) Pathologist [facility] C REACTIVE PROTEIN 0.64(H) <=0.50 mg/dL TBH 04/15/2025 1:47 PM EDT 04/15/2025 1:48 PM EDT Narrative [facility] - 04/15/2025 2:20 PM EDT Generic External Data Provider [facility] F inal Result Performing Organization Address [facility] de Phone Number [facility] TB * (ABNORMAL) ALL BASIC METABOLIC PANEL (04/15/2025 1:47 PM EDT) SODIUM 139 136 - 145 mmol/L TBH POTASSIUM 4.5 3.5 - 5.1 mmol/L TBH CHLORIDE 107 98 - 107 mmol/L TBH CARBON DIOXIDE 26.1 21.0 - 32.0 mmol/L TBH ANION GAP 10.4 TBH GLUCOSE 106 74 - 106 mg/dL TBH BLOOD UREA NITROGEN 20.0(H) 7.0 - 18.0 mg/dL TBH CREATININE 1.47(H) 0.70 - 1.30 mg/dL TBH TBH EGFR-AF CZECH 55(L) >=60 mL/min/1.7 3m 2 TBH TBH EGFR-NON AF CZECH 45(L) >=60 mL/min/1.7 3m 2 TBH BUN CREATININE RATIO 13.6 TBH CALCIUM 9.2 8.5 - 10.1 mg/dL TBH 04/15/2025 1:47 PM EDT 04/15/2025 1:48 PM EDT Narrative [facility]IDNC - 04/15/2025 2:20 PM EDT us Generic External Data Provider [facility] F inal Result ALVARO [facility] * MR foot right wo IV contrast [...] ELECTRONICALLY SIGNED BY: Dom Ruiz DO Nikko Lovelace MD IMG MRI PROCEDURES Final Result * (ABNORMAL) [facility] (04/08/2025 12:00 AM EDT) MECA 25.731(A) 23.000 - 31.199 ppm 04/09/2025 1:18 PM EDT [facility] MECA Detected(A) 23.000 - 31.199 ppm 04/09/2025 1:18 PM EDT [facility] TET B, TET M 23.751(A) 23.000 - 27.778 ppm 04/09/2025 1:18 PM EDT [facility] TET B, TET M Detected(A) 23.000 - 27.778 ppm 04/09/2025 1:18 PM EDT [facility] ACINETOBACTER BAUMANNII (ACUTE WOUND) 0 19.961 - 24.689 ppm 04/09/2025 1:19 PM EDT [facility] ACINETOBACTER BAUMANNII (ACUTE WOUND) Not Detected 19.961 - 24.689 ppm 04/09/2025 1:19 PM EDT [facility] BACTEROIDES FRAGILIS, VULGATUS (ACUTE WOUND) 23.270(A) 19.961 - 24.689 ppm 04/09/2025 1:18 PM EDT [facility] BACTEROIDES FRAGILIS, VULGATUS (ACUTE WOUND) Detected(A) 19.961 - 24.689 ppm 04/09/2025 1:18 PM EDT [facility] CITROBACTER FREUNDII (ACUTE WOUND) 0 19.961 - 24.689 ppm 04/09/2025 1:19 PM EDT [facility] CITROBACTER FREUNDII (ACUTE WOUND) Not Detected 19.961 - 24.689 ppm 04/09/2025 1:19 PM EDT [facility] CLOSTRIDIUM PERFRINGENS, NOVYI, SEPTICUM (ACUTE WOUND) 0 19.961 - 24.689 ppm 04/09/2025 1:19 PM EDT [facility] CLOSTRIDIUM PERFRINGENS, NOVYI, SEPTICUM (ACUTE WOUND) Not Detected 19.961 - 24.689 ppm 04/09/2025 1:19 PM EDT [facility] ENTEROBACTER CLOACAE COMPLEX, KLEBSIELLA (ENTEROBACTER) AEROGENES ((A) 0 19.961 - 24.689 ppm 04/09/2025 1:19 PM EDT [facility] ENTEROBACTER CLOACAE COMPLEX, KLEBSIELLA (ENTEROBACTER) AEROGENES ((A) Not Detected 19.961 - 24.689 ppm 04/09/2025 1:19 PM EDT [facility] ENTEROCOCCUS FAECALIS, FAECIUM 0 19.961 - 24.689 ppm 04/09/2025 1:19 PM EDT [facility] ENTEROCOCCUS FAECALIS, FAECIUM Not Detected 19.961 - 24.689 ppm 04/09/2025 1:19 PM EDT [facility] ESCHERICHIA COLI (ACUTE WOUND) 0 19.961 - 24.689 ppm 04/09/2025 1:19 PM EDT [facility] ESCHERICHIA COLI (ACUTE WOUND) Not Detected 19.961 - 24.689 ppm 04/09/2025 1:19 PM EDT [facility] KLEBSIELLA PNEUMONIAE, OXYTOCA (ACUTE WOUND) 0 19.961 - 24.689 ppm 04/09/2025 1:19 PM EDT [facility] KLEBSIELLA PNEUMONIAE, OXYTOCA (ACUTE WOUND) Not Detected 19.961 - 24.689 ppm 04/09/2025 1:19 PM EDT [facility] PROTEUS MIRABILIS, VULGARIS (ACUTE WOUND) 22.966(A) 19.961 - 24.689 ppm 04/09/2025 1:18 PM EDT [facility] PROTEUS MIRABILIS, VULGARIS (ACUTE WOUND) Detected(A) 19.961 - 24.689 ppm 04/09/2025 1:18 PM EDT [facility] PSEUDOMONAS AERUGINOSA (ACUTE WOUND) 0 19.961 - 24.689 ppm 04/09/2025 1:19 PM EDT [facility] PSEUDOMONAS AERUGINOSA (ACUTE WOUND) Not Detected 19.961 - 24.689 ppm 04/09/2025 1:19 PM EDT [facility] SERRATIA MARCESCENS (ACUTE WOUND) 0 19.961 - 24.689 ppm 04/09/2025 1:19 PM EDT [facility] SERRATIA MARCESCENS (ACUTE WOUND) Not Detected 19.961 - 24.689 ppm 04/09/2025 1:19 PM EDT [facility] STAPHYLOCOCCUS AUREUS (ACUTE WOUND) 24.790(A) 19.961 - 24.689 ppm 04/09/2025 1:18 PM EDT [facility] STAPHYLOCOCCUS AUREUS (ACUTE WOUND) Detected(A) 19.961 - 24.689 ppm 04/09/2025 1:18 PM EDT [facility] STREPTOCOCCUS AGALACTIAE (GROUP B STREP) (ACUTE WOUND) 0 19.961 - 24.689 ppm 04/09/2025 1:19 PM EDT [facility] STREPTOCOCCUS AGALACTIAE (GROUP B STREP) (ACUTE WOUND) Not Detected 19.961 - 24.689 ppm 04/09/2025 1:19 PM EDT [facility] STREPTOCOCCUS PYOGENES (GROUP A STREP) (ACUTE WOUND) 0 19.961 - 24.689 ppm 04/09/2025 1:19 PM EDT [facility] STREPTOCOCCUS PYOGENES (GROUP A STREP) (ACUTE WOUND) Not Detected 19.961 - 24.689 ppm 04/09/2025 1:19 PM EDT [facility] VIBRIO CHOLERAE, PARAHAEMOLYTICUS, VULNIFICUS (ACUTE WOUND) 0 23.000 - 31.296 ppm 04/09/2025 1:19 PM EDT [facility] VIBRIO CHOLERAE, PARAHAEMOLYTICUS, VULNIFICUS (ACUTE WOUND) Not Detected 23.000 - 31.296 ppm 04/09/2025 1:19 PM EDT [facility] Wound 04/08/2025 04/09/2025 4:1 0 AM EDT us Zoë BROWER LAB BLOOD ORDERABLES Edited Re sult - Final [facility] [address] [place] [address] [place] [address] * HERPES SIMPLEX VIRUS 1 (04/08/2025 12:00 AM EDT) [facility] HERPES SIMPLEX VIRUS 1 0 23.000 - 32.355 ppm 04/09/2025 11:32 AM EDT [facility] HERPES SIMPLEX VIRUS 1 Not Detected 23.000 - 32.355 ppm 04/09/2025 11:32 AM EDT [facility] HERPES SIMPLEX VIRUS 2 0 23.000 - 31.433 ppm 04/09/2025 11:32 AM EDT [facility] HERPES SIMPLEX VIRUS 2 Not Detected 23.000 - 31.433 ppm 04/09/2025 11:32 AM EDT [facility] HUMAN MONKEYPOX VIRUS 0 23.000 - 32.544 ppm 04/09/2025 11:37 AM EDT [facility] HUMAN MONKEYPOX VIRUS Not Detected 23.000 - 32.544 ppm 04/09/2025 11:37 AM EDT [facility] VARICELLA ZOSTER VIRUS (HUMAN HERPESVIRUS 3) 0 23.000 - 31.749 ppm 04/09/2025 11:32 AM EDT [facility] VARICELLA ZOSTER VIRUS (HUMAN HERPESVIRUS 3) Not Detected 23.000 - 31.749 ppm 04/09/2025 11:32 AM EDT [facility] Wound 04/08/2025 04/09/2025 4:1 0 AM EDT us Zoë BROWER LAB BLOOD ORDERABLES Final Res ult [facility] [facility] [address] [place] [address] from Last 3 Months Insurance [employer] MEDICARE ADVANTAGE Care Teams Belt Worker Relationship Specialty Start Date End Date Nikko Lovelace MD [address] [facility] 110 [place] [address] PCP - Hum[employer] 08/28/17 Nikko Lovelace MD [address] [facility] 110 [place] [address] PCP - General Family Medicine 03/09/23 Elaine Saab LPN [address] [facility] 110 [place] [address] 11/15/24
--- OUTSIDE RECORDS SUMMARY | 2025-04-30 09:40 | XMS_ITS | Encounter Summary ---
Author Organization [facility] Address [address] [place] [address] Care Team Providers Care Boiler Service Technician Name Role Phone Nikko Bird MD Unavailable Nikko Bird MD Primary Care Provider [phone] Elaine Saab LPN Unavailable Reason for Visit * Reason Onset Date Comments Medication Question 04/29/2025 Has a terrib le cold and runny nose wanted to know if you could zuly in a z-pack for him. Encounter Details Date Type Department Care Team (Late st Contact Info) Description 04/29/2025 Telephone [facility] [address] [facility] 110 [place] [address] Sheree Murrell Medication Question (Has a terrible cold and runny nose wanted to know if you could zuly in a z-pack for him.) Social History Tobacco Use Types Packs/Day Years [...] Patient Health Questionnaire-2 Score 0 04/14/2025 [facility] - Occupational Stress Questionnaire Answer [...] any time in the past 12 m [facility], were you homeless or living in a prison (including now)? No 06/21/2024 Sex and Gender Information Value Date Recorded Sex Assigned at Not on file Legal Sex Male 7:18 PM EDT Gender Identity Not on file Sexual Orientation Not on file documented as of this encounter Plan of Treatment Not on file documented as of this encounter Visit Diagnoses Diagnosis Acute non-recurrent sinusitis, unspecified location- Primary documented in this encounter Additional Health Concerns Assessment Noted Time PHQ-9 Depression Total Score: 0 04/26/20 24 9:00 AM EDT documented as of this encounter Care Teams Boiler Service Technician Relationship Specialty Start Date End Date Nikko Bird MD [address] [facility] 110 [place] [address] PCP - Humana 08/28/17 Nikko Bird MD [address] [facility] 110 [place] [address] PCP - General Family Medicine 03/09/23 Elaine Saab LPN [address] [facility] 110 [place] [address] 11/15/24 documented as of this encounter
--- OUTSIDE RECORDS SUMMARY | 2025-04-30 09:40 | XMS_ITS | Clinical Summary ---
Author Organization [facility] Address [id number] [address] 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
--- OUTSIDE RECORDS SUMMARY | 2025-04-30 09:40 | XMS_ITS | Patient Health Record ---
Author Organization [facility] Symptom R [facility] Address [address] [place] [address] Support Name Relationship Address Phone Tristin Gray Guarantor Unknown [phone] Reason For Referral No Information Problems Problem Type SNOMED Code ICD Code Onset Dates Problem Status W/U Status Risk Notes Problem Pain in limb (71492957) Pain of left lower extremity (M79.605) Active confirmed Plan Of Treatment No Information Insurance Providers Payer Name Payer Address Payer Phone Subscriber Number Group Number Insured Name Patient Relationship to Insured Coverage Start Date Coverage End Date Humana Managed Medicare [address] [address] [place] [address] [id number] Tristin Gray Self - patient is the insured
--- OUTSIDE RECORDS SUMMARY | 2025-04-30 09:40 | XMS_ITS | Encounter Summary ---
Author Organization [facility] Address [address] [place] [address] Care Team Providers Care Fine Craft Artist Name Role Phone Nikko Bird MD Unavailable Nikko Bird MD Primary Care Provider [phone], Mary WRIGHTN Unavailable [phone] Monday, Mary DELIVERY ANALYST Unavailable [phone] Lorraine Morgan RN Unavailable [phone] Elaine Saab DELIVERY ANALYST Unavailable Encounter Details Date Type Department Care Team (Late st Contact Info) Description 01/25/2023 Orders Only [facility] [place] [facility] [address] [facility] 110 [place] [address] Nikko Bird MD [address] [place] [address] Social History Tobacco Use Types Packs/Day Years [...] on filedocumented in this encounter Care Teams Fine Craft Artist Relationship Specialty Start Date End Date Nikko Bird MD [address] [place] [address] PCP - Humana 08/28/17 Nikko Bird MD [address] [place] [address] PCP - General Family Medicine 03/09/23Monday, ISABELLA Hernandez [address] [place] [address] Licensed Practical Nurse Family Medicine 09/21/2309/21Mary LPN [address] [place] [address] Licensed Practical Nurse Family Medicine 06/21/24 Lorraine Morgan, RN [address] [place] [address] Licensed Practical Nurse Family Medicine 10/04/2411/15 Elaine Saab LPN [address] [place] [address] 11/15/24 documented as of this encounter
--- OUTSIDE RECORDS SUMMARY | 2025-04-30 09:40 | XMS_ITS | Encounter Summary ---
Author Organization [facility] Address [address] [place] [address] Care Team Providers Care Typewriter Assembly And Parts Inspector Name Role Phone Nikko Bird MD Unavailable Nikko Bird MD Primary Care Provider [phone], Mary ELECTRIC ARC WELDER Unavailable [phone], Mary ELECTRIC ARC WELDER Unavailable [phone] Lorraine Morgan RN Unavailable [phone] Elaine Saab ELECTRIC ARC WELDER Unavailable Encounter Details Date Type Department Care Team (Late st Contact Info) Description 04/15/2023 Abstract [facility] [place] 112 [facility] 110 [place] [address] Nikko Bird MD 112 [facility] 110 [place], [place] [address] Social History Tobacco Use Types Packs/Day Years [...] on filedocumented in this encounter Care Teams Typewriter Assembly And Parts Inspector Relationship Specialty Start Date End Date Nikko Bird MD 112 [facility] 110 [place] [id number] PCP - Humana 08/28/17 Nikko Bird MD [address] [place] [address] PCP - General Family Medicine 03/09/23Monday, ISABELLA Hernandez [address] [place] [address] Licensed Practical Nurse Family Medicine 09/21/2309/21, ISABELLA Hernandez [address] [place] [address] Licensed Practical Nurse Family Medicine 06/21/24 Lorraine Morgan, RN [address] [place] [address] Licensed Practical Nurse Family Medicine 10/04/2411/15 Elaine Saab LPN [address] [place] [address] 11/15/24 documented as of this encounter
--- OUTSIDE RECORDS SUMMARY | 2025-04-30 09:40 | XMS_ITS | Encounter Summary ---
Author Organization [facility] Address [address] [place] [address] Care Team Providers Care Machine Clothing Worker Name Role Phone Nikko Bird MD Unavailable Nikko Bird MD Primary Care Provider [phone] Elaine Saab LPN Unavailable Reason for Visit * Reason Comments Med Refill Encounter Details Date Type Department Care Team (Late st Contact Info) Description 04/29/2025 Refill [facility] [address] [place] [address] Nikko Bird MD [address] [facility] 110 [place] [address] Benign essential hypertension Social History Tobacco Use Types Packs/Day Years [...] Recorded Patient Health Questionnaire-2 Score 0 04/14/2025 [facility] of Occupat ional Health - Occupational [...] any time in the past 12 m [facility], were you homeless or living in a care home (including now)? No 06/21/2024 Sex and Gender Information Value Date Recorded Sex Assigned at Not on file Legal Sex Male 7:18 PM EDT Gender Identity Not on file Sexual Orientation Not on file documented as of this encounter Miscellaneous Notes * Telephone Encounter - LEONARDA Villavicencio - 04/29/2025 9:54 PM EDT Metoprolol sent. documented in this encounter Plan of Treatment Not on file documented as of this encounter Visit Diagnoses Diagnosis Benign essential hypertension Essential hypertension, benign documented in this encounter Additional Health Concerns Assessment Noted Time PHQ-9 Depression Total Score: 0 04/26/20 24 9:00 AM EDT documented as of this encounter Care Teams Machine Clothing Worker Relationship Specialty Start Date End Date Nikko Bird MD [address] [facility] 110 [place] [address] PCP - Humana 08/28/17 Nikko Bird MD [address] [facility] 110 [place] [address] PCP - General Family Medicine 03/09/23 Elaine Saab LPN [address] [facility] 110 [place] [address] 11/15/24 documented as of this encounter
--- OUTSIDE RECORDS SUMMARY | 2025-04-30 09:40 | XMS_ITS | Encounter Summary ---
Author Organization [facility] Address [address] [place] [address] Care Team Providers Care Developer Support Engineer Name Role Phone Nikko Bird MD Primary Care Provider [phone] System, Provider Not In Unavailable Unavaila ble Encounter Details Date Type Department Care Team (Latest Contact Info) Description 04/23/2025 Travel Social History Tobacco Use Types Packs/Day Years Used Date Smoking Tobacco: Never Smokeless Tobacco: Never Alcohol Use Standard Drinks/Week Comments Not Currently 0 (1 standard drink = 0.6 oz pur e alcohol) [facility] Utilities Answer Date Recorded In the [...] in the past 12 m [facility], were you homeless or living in a usp (including now)? No 03/14/2025 Sex and Gender [...] documented as of this encounter Care Teams Developer Support Engineer Relationship Specialty Start Date End Date Nikko Bird MD [address] [place] [address] PCP - General Family Medicine 09/04/18 System, Provider Not In Business Office Associate 11/09/22 documented as of this encounter
--- OUTSIDE RECORDS SUMMARY | 2025-04-30 09:40 | XMS_ITS | Encounter Summary ---
Author Organization [facility] Address [address] [place] [address] Care Team Providers Care Petrophysical Engineer Name Role Phone Nikko Bird MD Unavailable Nikko Bird MD Primary Care Provider [phone] Elaine Saab LPN Unavailable Encounter Details Date Type Department Care Team (Late st Contact Info) Description 04/15/2025 Results Follow-Up JAE Gr[facility] [address] [facility] 110 [place] [address] Nikko Bird MD 112 [facility] 110 [place] [address] MR galindo right wo IV contrast Social [...] 0 04/14/2025 [facility] ional [facility] - Occupational [...] with Dr. Feliz. Is uspecthe will need residential antibiotic. Dr. Feliz will probably do a debridement or partial amputtion. He may benefit from being admitted to a SNF for antibiotics. I go to [facility] and [facility] if that is the route that [...] documented as of this encounter Care Teams Petrophysical Engineer Relationship Specialty Start Date End Date Nikko Bird MD [address] [facility] 110 [place] [address] PCP - Humana 08/28/17 Nikko Bird MD [address] [facility] 110 [place] [address] PCP - General Family Medicine 03/09/23 Elaine Saab LPN 112 [facility] 110 [place] [address] 11/15/24 documented as of this encounter
--- OUTSIDE RECORDS SUMMARY | 2025-04-30 09:40 | XMS_ITS | Clinical Summary ---
Author Organization [facility] Address [address] [place] [address] [place] [address] Care Team Providers Care Electric Meter Installer Helper Name Role Phone Nikko Bird MD Primary Care Provider [phone] Allergies No known active allergies Medications metoprolol [...] Diagnosed Date Coronary artery disease invo lving [place] coronary artery of [place] heart without angina pectoris 07/15/2021 S/P transmetatarsal [...] (08/08/2018): Added automatically from request for surgery [id number] Assessment & Plan (08/30/2018 3:38 PM EST): [...] 75+ series) 2014 COVID-19 VACCINE ( season) 2025 09/09/2021, 09/09/2021, 10/28/2020, Additional history exists INFLUENZA VACCINE (#1) 2025 3, 05/31/2022, 06/21/2021, Additional history exists TETANUS 09/30/2029 09/30/2019, 09/30/2019 TDAP (ADULT) Completed 09/30/2019, 09/30/2019 PNEUMOCOCCAL VACCINE SERIES Completed 09/28, 05/28/2020, 05/18/2015 HEP B VACCINE Aged Out No longer elig ible based on patient's age to complete this topic Medical Devices Implanted Type Area Assistant Boiler Operator Device Identifier Shelf Expiration Date Model / Serial / Lot Paradox Altrx Polyethylene Acetabular Liner Neutral 36mm Id 62mm Od Implanted:Qty: 1 on 07/15/2021 by Dashawn Silvestre MD at [employer] RE[facility] LOC Hip Joint Right: Hip 07/27/2025 / [id number] / [id number] Paradox Gription Acetabular Shell Sector 62mm Od Implanted:Qty: 1 on 07/15/2021 by Dashawn Silvestre MD at [employer] [facility] LOC Hip Joint Right: Hip 09/27/2029 / [id number] / [id number] Biol[employer] Delta Ceramic Femoral Head +1.5 36mm Jaki 12/14 Taper Implanted:Qty: 1 on 07/15/2021 by Dashawn Silvestre MD at [facility] Hip Joint Right: Hip 04/27/2026 / [id number] / [id number] [employer] Femoral Stem 08/10 Taper Size 7 Mi 133mm Implanted:Qty: 1 on 07/15/2021 by Dashawn Silvestre MD at [facility] Hip Joint Right: Hip 10/25/2025 / [id number] / [id number] Cementralizer Stem Centralizer 12.0mm Cemented Implanted:Qty: 1 on 07/15/2021 by Dashawn Silvestre MD at [facility] Hip Joint Right: Hip 09/27/2025 / 1376-21-000 / [id number] Smart Flex [id number] - [id number] Implanted:Qty: 1 on 08/09/2018 by Isaias Mayen MD at [facility] LOC Left: Leg [employer] [id number] 03/06/2019 [id number] / / [id number] Smart Flex [id number] - [id number] Implanted:Qty: 1 on 08/09/2018 by Isaias Mayen MD at [facility] Left: Leg [employer] [id number] 07/24/2019 [id number] / / [id number] Angio-Seal 6f Vip - [id number] Implanted:Qty: 1 on 08/09/2018 by Isaias Mayen MD at [facility] LOC Right: Groin [facility] [id number] 11/25/2018 [id number] / / [id number] Palacos R 1 X 40 Us - [id number] Implanted:Qty: 1 on 07/15/2021 by Dashawn Silvestre MD at [facility] LOC Right: Hip / / [id number] Palacos Lv 1x40 Single - [id number] Implanted:Qty: 2 on 07/15/2021 by Dashawn Silvestre MD at [facility] LOC Right: Hip HÉCTOR BIOMET [id number] / / [id number] Insurance Medicare Hum[employer] HMO PPO Advance Directives For more information, please contact: [phone] (7:30 AM - 6PM [facility], Monday-Monday) * Full Code (Latest Code Status on File) Date Activated Date Inactivated Comments 07/15/2021 2:40 PM * Full Code Date Activated Date Inactivated Comments 09/03/2018 11:29 AM 07/15/2021 2:40 PM * Full Code Date Activated Date Inactivated Comments 09/01/2011 7:48 AM 09/04/2011 4:13 PM Care Teams Electric Meter Installer Helper Relationship Specialty Start Date End Date Nikko Bird MD [address] [place] [address] PCP - General Family Medicine 07/31/18
--- OUTSIDE RECORDS SUMMARY | 2025-04-30 09:40 | XMS_ITS | Encounter Summary ---
Author Organization [facility] Address [address] [place] [address] Care Team Providers Care Gem Setter Name Role Phone Nikko Bird MD Unavailable Nikko Bird MD Primary Care Provider [phone] Elaine Saab LPN Unavailable Encounter Details Date Type Department Care Team (Late st Contact Info) Description 04/21/[address] [facility] [address] [place] [address] Elaine Saab LPN [address] [facility] 110 [place] [address] Social History Tobacco Use Types [...] Recorded Patient Health Questionnaire-2 Score 0 04/14/2025 [facility] of Occupat ional Health - [...] encounter Miscellaneous Notes * Telephone Encounter - Nikko Bird MD - 04/21/2025 1:31 PM EDT Patient requests Zofran refilled documented in this encounter Plan of Treatment Not on file documented as of this encounter Visit Diagnoses Diagnosis Nausea and vomiting, unspecified vomiting type- Primary documented in this encounter Additional Health Concerns Assessment Noted Time PHQ-9 Depression Total Score: 0 04/26/20 24 9:00 AM EDT documented as of this encounter Care Teams Gem Setter Relationship Specialty Start Date End Date Nikko Bird MD [address] [facility] 110 [place] [address] PCP - Hum[employer] 08/28/17 Nikko Bird MD [address] [facility] 110 [place] [address] PCP - General Family Medicine 03/09/23 Elaine Saab LPN [address] [facility] 110 [place] [address] 11/15/24 documented as of this encounter
--- OUTSIDE RECORDS SUMMARY | 2025-04-30 09:40 | XMS_ITS | Encounter Summary ---
Author Organization [facility] Address [address] [place] [address] Care Team Providers Care Willow Specialists Name Role Phone Nikko Lovelace MD Unavailable Nikko Lovelace MD Primary Care Provider [phone] Elaine Saab LPN Unavailable Encounter Details Date Type Department Care Team (Late st Contact Info) Description 04/16/2025 Clinisync Result Encounter N[facility] External Department [...] 04/14/2025 [facility] of Occupat ional Health - Occupational Stress [...] in the past 12 m [facility], were you homeless or living in a group home (including now)? No 06/21/2024 Sex and [...] MIN 3V 04/16/2025 12: 49 PM EDT documented in this encounter Results * XR FOOT RT MIN 3V (04/16/2025 12:49 PM EDT) Anatomical Region Laterality Modality Other 04/16/2025 12:4 9 PM EDT Narrative 04/16/2025 12:52 [place] [address] XRay Report Signed Patient: REJI POWELL MR#: [id number] : 1940 Acct:[id number] Age/Sex: 85 / M ADM Date: 04/15/25 Loc: RAD Attending Dr: Wilman Feliz D.P.M. Ordering Physician: Wilman Feliz D.P.M. Date of Service: 04/15/25 Procedure(s): XR foot RT min 3V Accession Number(s): [id number] cc: NIKKO LOVELACE ; Wilman Feliz D.P.M. [place] [address] Patient Name: REJI POWELL MRN: [id number] date: 1940 Sex: M Assigned Patient Location: [facility] Current Patient Location: Accession/Order Number: [id number] Exam Date: 04/16/2025 12:46 Report Date: 04/16/2025 12:49 At the request of: WILMAN FELIZ DPJenni Procedure: XR foot RT min [...] Rodriguez M.D. 04/16/2025 12:49 PM Dictation Location: [place] [address] Electronically authenticated by: [id number] Y Date: 04/16/2025 12:49 Dictated By: Cristian Rodriguez D.O. Signed By: 04/16/25 1252 DD/ 1249 TD/TT: Service Advisor: Procedure Note Radiology, Radiologist, MD - 04/16/2025 [place] [address] XRay Report Signed Patient: REJI POWELLMR#: [id number] : 1940cct:[id number] Age/Sex: 85 / MADM Date: 04/15/25 Loc: RAD Attending Dr: Wilman Feliz D.P.M. Ordering Physician: Wilman Feliz D.P.M. Date of Service: 04/15/25 Procedure(s): XR foot RT min 3V Accession Number(s): [id number] cc: NIKKO LOVELACE ; Wilman Feliz D.P.M. [place] [address] Patient Name: REJI POWELL MRN: [facility]:[id number] date: 1940 Sex: M Assigned Patient Location: [facility] Current Patient Location: Accession/Order Number: [id number] Exam Date: 04/16/2025 12:46 Report Date: 04/16/2025 12:49 At the request of: WILMAN FELIZ DPJenni Procedure: XR foot RT min [...] Rodriguez M.D. 04/16/2025 12:49 PM Dictation Location: [place] [address] Electronically authenticated by: [id number] Y Date: 2:49 Dictated By: Cristian Rodriguez D.O. Signed By:04/16/25 1252 DD/ 1249 TD/TT: Service Advisor: us Generic External Data Provider [facility] Final Result documented in this encounter Visit Diagnoses Not on filedocumented in this encounter Additional Health Concerns Assessment Noted Time PHQ-9 Depression Total Score: 0 04/26/20 24 9:00 AM EDT documented as of this encounter Care Teams Willow Specialists Relationship Specialty Start Date End Date Nikko Lovelace MD [address] [address] PCP - [employer] 08/28/17 Nikko Lovelace MD [address] [facility] 110 [place] [address] PCP - General Family Medicine 03/09/23 Elaine Saab LPN [address] [address] 11/15/24 documented as of this encounter
--- OUTSIDE RECORDS SUMMARY | 2025-04-30 09:40 | XMS_ITS | Encounter Summary ---
Author Organization [facility] Address [address] [place] [address] Care Team Providers Care Transcription Specialist Name Role Phone Nikko Bird MD Unavailable Nikko Bird MD Primary Care Provider [phone], Mary COLLAR BAND CREASER Unavailable [phone], Mary COLLAR BAND CREASER Unavailable [phone] Lorraine Morgan RN Unavailable Elaine Saab COLLAR BAND CREASER Unavailable Encounter Details Date Type Department Care Team (Late st Contact Info) Description 02/02/2023 Abstract [facility] [place] [facility] [address] [facility] 110 [place] [address] Zoë King PA [address] [facility] 110 [place] [address] Social History Tobacco Use Types Packs/Day Years [...] on filedocumented in this encounter Care Teams Transcription Specialist Relationship Specialty Start Date End Date Nikko Bird MD [address] [facility] 110 [place] [address] PCP - [employer] 08/28/17 Nikko Bird MD [address] [place] [address] PCP - General Family Medicine 03/09/23MondayMary LPN [address] [place] [address] Licensed Practical Nurse Family Medicine 09/21/2309/21Mary LPN [address] [facility] 110 [place] [address] Licensed Practical Nurse Family Medicine 06/21/24 Lorraine Morgan, RN [address] [place], [place] [address] Licensed Practical Nurse Family Medicine 10/04/2411/15 Elaine Saab LPN [address] [facility] 110 [place] [address] 11/15/24 documented as of this encounter
--- OUTSIDE RECORDS SUMMARY | 2025-04-30 09:41 | XMS_ITS | Encounter Summary ---
Author Organization [facility] Address [address] [place] [address] Care Team Providers Care Bank Advisor Name Role Phone Nikko Bird MD Unavailable Nikko Bird MD Primary Care Provider [phone], Mary RN TEAM LEADER Unavailable [phone] Lorraine Morgan RN Unavailable [phone] Elaine Saab RN TEAM LEADER Unavailable Encounter Details Date Type Department Care Team (Late st Contact Info) Description 05/01/2024 Abstract [facility] [place] [facility] 112 [facility] 110 [place] [address] Nikko Bird MD 112 [facility] 110 [place] [address] Social History Tobacco Use Types Packs/Day Years [...] as of this encounter Care Teams Bank Advisor Relationship Specialty Start Date End Date Nikko Bird MD [address] [facility] 110 [place] [address] PCP - [employer] 08/28/17 Nikko Bird MD [address] [facility] 110 [place] [address] PCP - General Family Medicine 03/09/23MondayMary LPN [address] [facility] 110 [place] [address] Licensed Practical Nurse Family Medicine 06/21/24 Lorraine Morgan, KULDEEP [address] [place], [place] [address] Licensed Practical Nurse Family Medicine 10/04/2411/15 Elaine Saab LPN [address] [facility] 110 [place] [address] 11/15/24 documented as of this encounter
--- OUTSIDE RECORDS SUMMARY | 2025-04-30 09:41 | XMS_ITS | Encounter Summary ---
Author Organization [facility] Address [address] [place] [address] Care Team Providers Care Manufacturing Sales Representative Name Role Phone Nikko Bird MD Unavailable Nikko Bird MD Primary Care Provider [phone], Mary WRIGHTN Unavailable [phone] Lorraine Morgan RN Unavailable [phone] Saab, Elaine CLINICAL RN LIAISON Unavailable Encounter Details Date Type Department Care Team (Late st Contact Info) Description 07/29/2024 Abstract [facility] [place] [facility] 112 [facility] 110 [place] [address] Nikko Bird MD 112 [facility] 110 [place] [address] Social History Tobacco Use Types Packs/Day Years [...] Recorded Patient Health Questionnaire-2 Score 0 04/26/2024 [facility] - Occupational [...] documented as of this encounter Care Teams Manufacturing Sales Representative Relationship Specialty Start Date End Date Nikko Bird MD [address] [place] [address] PCP - [employer] 08/28/17 Nikko Bird MD [address] 110 [place] [address] PCP - General Family Medicine 03/09/23MondayMary LPN [address] [place] [address] Licensed Practical Nurse Family Medicine 06/21/24 Lorraine Morgan, RN [address] [place] [address] Licensed Practical Nurse Family Medicine 10/04/2411/15 Elaine Saab LPN [address] 110 [place] [address] 11/15/24 documented as of this encounter
--- OUTSIDE RECORDS SUMMARY | 2025-04-30 09:41 | XMS_ITS | Encounter Summary ---
Author Organization [facility] Address [address] [place] [address] Care Team Providers Care Fruit Buying Grader Name Role Phone Nikko Bird MD Unavailable Nikko Bird MD Primary Care Provider [phone] Elaine Saab LPN Unavailable Encounter Details Date Type Department Care Team (Late st Contact Info) Description 03/20/2025 Abstract [facility] [place] [facility] 112 [facility] [facility] 110 [place] [address] Nikko Bird MD [address] [facility] 110 [place] [address] Social History Tobacco Use Types Packs/Day Years [...] Recorded Patient Health Questionnaire-2 Score 0 01/09/2025 [facility] Occupat ional Health - [...] time in the past [address] [facility], were you homeless [...] documented as of this encounter Care Teams Fruit Buying Grader Relationship Specialty Start Date End Date Nikko Bird MD [address] [address] PCP - Hum[employer] 08/28/17 Nikko Bird MD [address] [facility] 110 [place] [address] PCP - General Family Medicine 03/09/23 Elaine Saab LPN [address] [address] 11/15/24 documented as of this encounter
--- OUTSIDE RECORDS SUMMARY | 2025-04-30 09:41 | XMS_ITS | Encounter Summary ---
Author Organization [facility] Address [address] [place] [address] Care Team Providers Care Workplace Rehabilitation Officer Name Role Phone Nikko Bird MD Unavailable Nikko Bird MD Primary Care Provider [phone] Elaine Saab LPN Unavailable Encounter Details Date Type Department Care Team ([facility] Contact Info) Description 04/10/2025 [facility] 112 [facility] 120 [place] [address] Emmanuel Gonzalez DPM 3002 [facility] 5 [place] [address] Social History Tobacco Use Types Packs/Day Years [...] documented as of this encounter Care Teams Workplace Rehabilitation Officer Relationship Specialty Start Date End Date Nikko Bird MD [address] [place] [address] [address] PCP - Hum[employer] 08/28/17 Nikko Bird MD [address] [facility] 110 [place] [address] PCP - General Family Medicine 03/09/23 Elaine Saab LPN [address] [address] 11/15/24 documented as of this encounter
--- OUTSIDE RECORDS SUMMARY | 2025-04-30 09:41 | XMS_ITS | Encounter Summary ---
Author Organization [facility] Address [address] [place] [address] Care Team Providers Care Shell Maker Lockstitch Name Role Phone Nikko Bird MD Unavailable Nikko Bird MD Primary Care Provider [phone], Mary MULCHER OPERATOR Unavailable [phone] Lorraine Morgan RN Unavailable [phone] Elaine Saab MULCHER OPERATOR Unavailable Encounter Details Date Type Department Care Team (Late st Contact Info) Description 05/13/2024 Abstract [facility] [place] [facility] 112 [facility] 110 [place] [address] Nikko Bird MD 112 [facility] 110 [place] [address] Social History Tobacco Use Types Packs/Day Years [...] documented as of this encounter Care Teams Shell Maker Lockstitch Relationship Specialty Start Date End Date Nikko Bird MD [address] [facility] 110 [place] [address] PCP - Humana 08/28/17 Nikko Bird MD [address] [facility] 110 [place] [address] PCP - General Family Medicine 03/09/23MondayMary LPN [address] [facility] 110 [place] [address] Licensed Practical Nurse Family Medicine 06/21/24 Lorraine Morgan, KULDEEP [address] [place], [place] [address] Licensed Practical Nurse Family Medicine 10/04/2411/15 Elaine Saab LPN [address] [facility] 110 [place] [address] 11/15/24 documented as of this encounter
--- OUTSIDE RECORDS SUMMARY | 2025-04-30 09:41 | XMS_ITS | Encounter Summary ---
Author Organization [facility] Address [address] [place] [address] Care Team Providers Care Auto Design Checker Name Role Phone Nikko Bird MD Unavailable Nikko Bird MD Primary Care Provider [phone] Elaine Saab LPN Unavailable Encounter Details Date Type Department Care Team (Late st Contact Info) Description 04/08/2025 Abstract [facility] [place] [facility] 112 [address] [facility] 110 [place] [address] Nikko Bird MD [address] [facility] 110 [place] [address] Social History Tobacco Use Types Packs/Day Years [...] Recorded Patient Health Questionnaire-2 Score 0 04/08/2025 [facility] of Occupat ional Health - [...] documented as of this encounter Care Teams Auto Design Checker Relationship Specialty Start Date End Date Nikko Bird MD [address] [address] PCP - [employer] 08/28/17 Nikko Bird MD [address] [facility] 110 [place] [address] PCP - General Family Medicine 03/09/23 Elaine Saab LPN [address] [facility] 110 [place] [address] 11/15/24 documented as of this encounter
--- OUTSIDE RECORDS SUMMARY | 2025-04-30 09:41 | XMS_ITS | Encounter Summary ---
Author Organization [facility] Address [address] [place] [address] Care Team Providers Care Binding End Stitcher Name Role Phone Nikko Lovelace MD Unavailable Nikko Lovelace MD Primary Care Provider [phone] Monday, Mary WRIGHTN Unavailable [phone] Lorraine Morgan RN Unavailable [phone] Elaine Saab BOX GLUER Unavailable Encounter Details Date Type Department Care [...] Recorded Patient Health Questionnaire-2 Score 0 04/26/2024 [facility] of Occupat ional [...] time in the past 12 m [facility], were you homeless or living in a [...] PM EST Narrative 07/11/2024 9:22 [place] [address] Cardiology Report Signed Patient: TRISTIN POWELL MR#: [id number] : 1940 Acct:[id number] Age/Sex: 84 / M ADM Date: 07/11/24 Loc: LAB Attending Dr: RUSSEL ALBERTS APRN Ordering Physician: RUSSEL ALBERTS APRN Date of Service: 07/11/24 Procedure(s): CA echo limited Accession Number(s): [id number] cc: NIKKO LOVELACE ; RUSSEL ALBERTS APRN Patient Name: TRISTIN POWELL MR#: [id number] : 1940 Exam Date: 07/11/2024 Ordering Doctor: RUSSEL ALBERTS ARC FURNACE OPERATOR ECHOCARDIOGRAM REPORT PROCEDURE: CA ECHO LIMITED INDICATIONS: [...] JUAREZ Signed By: 07/11/242121 DD/ 19 TD/TT: Self Propelled Dredge Operator: Procedure Note Radiology, Radiologist, - 07/11/[address] [address] Cardiology Report Signed Patient: TRISTIN POWELLMR#: [id number] : 1940cct:[id number] Age/Sex: 84 / MADM Date: 07/11/24 Loc: LAB Attending Dr: RUSSEL ALBERTS APRN Ordering Physician: RUSSEL ALBERTS APRN Date of Service: 07/11/24 Procedure(s): CA echo limited Accession Number(s): [id number] cc: NIKKO LOVELACE ; RUSSEL ALBERTS APRN Patient Name: TRISTIN POWELL MR#: [id number] : 1940 Exam Date: 07/11/2024 Ordering Doctor: RUSSEL ALBERTS ARC FURNACE OPERATOR ECHOCARDIOGRAM REPORT PROCEDURE: CA ECHO LIMITED INDICATIONS: [...] MOHAMUD JUAREZ Signed By:07/11/242121 DD/ 19 TD/TT: Self Propelled Dredge Operator: Generic External Data Provider IMG XR PROCEDURES Final Result * (ABNORMAL) C-REACTIVE PROTEIN, CARDIAC (07/11/2024 1:27 PM EST) C-REACTIVE PROTEIN, CARDIAC 9.50(A) 0.00 - 3.00 mg/L [facility] Comment: Relative Risk for Future Cardiovascular Event Low <1.00 Average 1.00 - 3.00 High >3.00 Performed at: [address] [id number] Staff Development Educator: Jasper Jean Baptiste PhD, Phone: [phone] 07/11/2024 1:27 PM EST 07/11/2024 1:29 PM EST Narrative [facility] - 07/12/2024 4:07 AM EST us Generic External Data Provider LAB BLOOD ORDERAB LES Final Result [facility] documented in this encounter Visit Diagnoses Not on filedocumented in this encounter Additional Health Concerns Assessment Noted Time PHQ-9 Depression Total Score: 0 04/26/20 9:00 AM EDT documented as of this encounter Care Teams Binding End Stitcher Relationship Specialty Start Date End Date Nikko Lovelaec MD [address] [place] [address] PCP - Humana 08/28/17 Nikko Lovelace MD [address] [facility] 110 [place] [address] PCP - General Family Medicine 03/09/23MondayMary LPN [address] [place] [address] Licensed Practical Nurse Family Medicine 06/21/24 Lorraine Morgan, RN [address] [place] [address] Licensed Practical Nurse Family Medicine 10/04/2411/15 Elaine Saab LPN [address] [facility] 110 [place] [address] 11/15/24 documented as of this encounter
--- OUTSIDE RECORDS SUMMARY | 2025-04-30 09:41 | XMS_ITS | Clinical Summary ---
Author Organization [facility] Address [address] [place] [address] Phone Care Team Providers Care Toy Assembler Name Role Phone Unavailable Primary Care Provider [...]
--- OUTSIDE RECORDS SUMMARY | 2025-04-30 09:41 | XMS_ITS ---
Author Organization [facility] Address [address] [place] [address] Care Team Providers Care Customs Consultant Name Role Phone Nikko Bird MD Unavailable Nikko iBrd MD Primary Care Provider [phone] Elaine Saab LPN Unavailable Chronic Care Management (CCM) Status:Enrolled (Active) Start date:06/21/2024 Enrollment date:06/21/2024 Enrollment reason:Identified using hospital discharge data Overview 06/21/24, 9:45 AM - Marymonday, COMMUNICATIONS PROFESSOR- Patient gives verbal consent to be enrolled in CCM Program and understands there could be a bill for this service. Case Team Name Relationship Phone Elaine Saab LPN(Responsible Staff) [phone] Continued Care and Services Coordination
--- OUTSIDE RECORDS SUMMARY | 2025-04-30 09:41 | XMS_ITS | Encounter Summary ---
Author Organization [facility] Address [address] [place] [address] Care Team Providers Care Quality Assurance Supervisor Trim Name Role Phone Nikko Bird MD Unavailable Nikko Bird MD Primary Care Provider [phone] Monday, Mary NUTRITIONALIST Unavailable [phone] Lorraine Morgan RN Unavailable Saab, Elaine NUTRITIONALIST Unavailable Encounter Details Date Type Department Care Team (Late st Contact Info) Description 10/12/2023 Abstract [facility] [place] [facility] 112 [address] [facility] 110 [place] [address] Nikko Bird MD [address] [facility] 110 [place] [address] Social History Tobacco Use Types Packs/Day Years [...] on filedocumented in this encounter Care Teams Quality Assurance Supervisor Trim Relationship Specialty Start Date End Date Nikko Bird MD [address] [facility] 110 [place], [place] [address] PCP - Hum[employer] 08/28/17 Nikko Bird MD [address] [place] [address] PCP - General Family Medicine 03/09/23Monday, ISABELLA Hernandez [address] [place] [address] Licensed Practical Nurse Family Medicine 06/21/24 Lorraine Morgan, RN [address] [place] [address] Licensed Practical Nurse Family Medicine 10/04/2411/15 Elaine Saab LPN [address] [facility] 110 [place] [address] 11/15/24 documented as of this encounter
--- OUTSIDE RECORDS SUMMARY | 2025-04-30 09:41 | XMS_ITS ---
Author Organization [facility] Address [address] [place] [address] Care Team Providers Care Supervisor Particleboard Name Role Phone Nikko Bird MD Unavailable Nikko Bird MD Primary Care Provider [phone] Elaine Saab LPN Unavailable 30 Day Monitoring Program Status:Closed (Closed) Start date:03/24/2025 Enrollment date:03/24/2025 End date:04/22/2025 Close reason:Actively enrolled in CCM Continued Care and Services Coordination
--- OUTSIDE RECORDS SUMMARY | 2025-04-30 09:41 | XMS_ITS | Encounter Summary ---
Author Organization [facility] Address [address] [place] [address] Care Team Providers Care Seat Cover Cutter Name Role Phone Nikko Bird MD Unavailable Nikko Bird MD Primary Care Provider [phone] Elaine Saab LPN Unavailable Encounter Details Date Type Department Care Team (Late st Contact Info) Description 03/24/2025 Abstract [facility] [place] [facility] 112 [address] [facility] 110 [place] [address] Nikko Bird MD [address] [facility] 110 [place] [address] Social History Tobacco Use Types Packs/Day Years [...] any time in the past 12 m [facility], were you homeless or living in a [...] documented as of this encounter Care Teams Seat Cover Cutter Relationship Specialty Start Date End Date Nikko Bird MD [address] [address] PCP - Humana 08/28/17 Nikko Bird MD [address] [facility] 110 [place] [address] PCP - General Family Medicine 03/09/23 Elaine Saab LPN [address] [address] 11/15/24 documented as of this encounter
--- OUTSIDE RECORDS SUMMARY | 2025-04-30 09:41 | XMS_ITS | Encounter Summary ---
Author Organization [facility] Address [address] [place] [address] Care Team Providers Care Breast Splitter Name Role Phone Nikko Bird MD Unavailable Nikko Bird MD Primary Care Provider [phone] Monday, Mary WEBSPHERE ARCHITECT Unavailable [phone] Lorraine Morgan RN Unavailable [phone] Saab, Elaine WEBSPHERE ARCHITECT Unavailable Encounter Details Date Type Department Care Team (Late st Contact Info) Description 11/07/2023 Abstract [facility] [place] [facility] 112 [facility] [facility] 110 [place] [address] Nikko Bird MD [address] [facility] 110 [place] [address] Social History Tobacco Use Types Packs/Day Years [...] on filedocumented in this encounter Care Teams Breast Splitter Relationship Specialty Start Date End Date Nikko Bird MD [address] [facility] 110 [place], [place] [address] PCP - Humana 08/28/17 Nikko Bird MD [address] [place] [address] PCP - General Family Medicine 03/09/23Monday, ISABELLA Hernandez [address] [place] [address] Licensed Practical Nurse Family Medicine 06/21/24 Lorraine Morgan, RN [address] [place] [address] Licensed Practical Nurse Family Medicine 10/04/2411/15 Elaine Saab LPN [address] [facility] 110 [place] [address] 11/15/24 documented as of this encounter
--- OUTSIDE RECORDS SUMMARY | 2025-04-30 09:41 | XMS_ITS | Encounter Summary ---
Author Organization [facility] Address [address] [place] [address] Care Team Providers Care Clinical Support Manager Name Role Phone Nikko Bird MD Unavailable Nikko Bird MD Primary Care Provider [phone], Mary PUBLIC HEALTH DOCTOR Unavailable [phone] Lorraine Morgan RN Unavailable [phone] Elaine Saab PUBLIC HEALTH DOCTOR Unavailable Encounter Details Date Type Department Care Team (Late st Contact Info) Description 05/14/2024 Abstract [facility] [place] [facility] [address] [facility] 110 [place] [address] Nikko Bird MD 112 [facility] 110 [place] [address] Social History Tobacco Use Types Packs/Day Years [...] documented as of this encounter Care Teams Clinical Support Manager Relationship Specialty Start Date End Date Nikko Bird MD [address] [facility] 110 [place] [address] PCP - Humana 08/28/17 Nikko Bird MD [address] [facility] 110 [place] [address] PCP - General Family Medicine 03/09/23MondayMary LPN [address] [facility] 110 [place] [address] Licensed Practical Nurse Family Medicine 06/21/24 Lorraine Morgan, KULDEEP [address] [place], [place] [address] Licensed Practical Nurse Family Medicine 10/04/2411/15 Elaine Saab LPN [address] [facility] 110 [place] [address] 11/15/24 documented as of this encounter
--- OUTSIDE RECORDS SUMMARY | 2025-04-30 09:41 | XMS_ITS | Encounter Summary ---
Author Organization [facility] Address [address] [place] [address] Care Team Providers Care Drag Out Man Name Role Phone Nikko Bird MD Unavailable Nikko Bird MD Primary Care Provider [phone] Elaine Saab LPN Unavailable Encounter Details Date Type Department Care Team (Late st Contact Info) Description 04/10/2025 Abstract [facility] [place] [facility] 112 [address] [facility] 110 [place] [address] Nikko Bird MD [address] [facility] 110 [place] [address] Social History Tobacco Use Types Packs/Day Years [...] Recorded Patient Health Questionnaire-2 Score 0 04/14/2025 [facility] of Occupat ional Health - Occupational Stress [...] any time in the past 12 m [facility], were you homeless or living in a [...] documented as of this encounter Care Teams Drag Out Man Relationship Specialty Start Date End Date Nikko Bird MD [address] [address] PCP - [employer] 08/28/17 Nikko Bird MD [address] [facility] 110 [place] [address] PCP - General Family Medicine 03/09/23 Elaine Saab LPN [address] [address] 11/15/24 documented as of this encounter
--- OUTSIDE RECORDS SUMMARY | 2025-04-30 09:41 | XMS_ITS | Encounter Summary ---
Author Organization [facility] Address [address] [place] [address] Care Team Providers Care Embossing Press Operator Name Role Phone Nikko Bird MD Unavailable Nikko Bird MD Primary Care Provider [phone] Monday, Mary PAPER DELIVERER Unavailable [phone] Lorraine Morgan RN Unavailable [phone] Saab, Elaine PAPER DELIVERER Unavailable Encounter Details Date Type Department Care Team (Late st Contact Info) Description 03/25/2024 Abstract [facility] [place] Family [facility] 112 [address] [facility] 110 [place] [address] Nikko Bird MD [address] [facility] 110 [place] [address] Social History Tobacco Use Types Packs/Day Years [...] on filedocumented in this encounter Care Teams Embossing Press Operator Relationship Specialty Start Date End Date Nikko Bird MD [address] [facility] 110 [place], [place] [address] PCP - Hum[employer] 08/28/17 Nikko Bird MD [address] [place] [address] PCP - General Family Medicine 03/09/23Monday, ISABELLA Hernandez [address] [place] [address] Licensed Practical Nurse Family Medicine 06/21/24 Lorraine Morgan, RN [address] [place] [address] Licensed Practical Nurse Family Medicine 10/04/2411/15 Elaine Saab LPN [address] [facility] 110 [place] [address] 11/15/24 documented as of this encounter
--- OUTSIDE RECORDS SUMMARY | 2025-04-30 09:41 | XMS_ITS | Clinical Summary ---
Author Organization [facility] Address [address] [place] [address] Care Team Providers Care Beamer Operator Name Role Phone Nikko Bird MD Primary Care Provider [phone] System, Provider Not In Unavailable Unavaila ble [...] Nare route daily . 16 g 12 9 Active polyethylene glycol (MIRALAX) 17 gram powder Take 17 (seventeen) g by mouth daily . 2 Active zolpidem (AMBIEN) 10 mg tablet Take 1 (one) tablet (10 mg total) by mouth nightly as needed . 0 Active aspirin 81 mg cap Take 1 (one) capsule (81 mg total) by mouth daily . 0 Active omeprazole (PRILOSEC) 20 MG capsule Take 1 (one) capsule (20 mg total) by mouth daily . 0 Active losartan (COZAAR) 50 MG tablet Take 1 (one) tablet (50 mg total) by mouth daily . Active rivaroxaban (XARELTO) 2.5 mg tablet Take 1 (one) tablet (2.5 mg total) by mouth 2 (two) times a day . 0 Active albuterol 90 mcg/actuation inhalerIndicati ons:Chronic obstructive pulmonary disease, unspecified COPD type (HCC) Inhale 2 (two) puffs every 4 (four) hours as needed for wheezing, shortness of breath or cough . 54 g 3 3 Active Calmoseptine 0.44-20.6 % Oint Apply 1 Application topically daily as needed . 3 Active nitroGLYCERIN (NITROSTAT) 0.[address] 1 tablet as needed by sublingual route. 3 Active furosemide (LASIX) 20 MG tabletIndicatio ns:edema [...] total) by mouth nightly . 30 tablet 5 Active naloxone (NARCAN) 4 mg/actuation [place]-Lyndora Administer 1 spray into one nostril for known or suspected opioid overdose. If patient worsens or does not respond, may repeat in 2-3 minutes. . 2 each 5 Active Additional Information Patient not taking.Reported on 04/23/2025 amoxicillin-cla vulanate (AUGMENTIN) 500-125 mg per tablet 5 Active SantyL ointment 5 Active ondansetron (ZOFRAN) 4 MG tablet 5 Active oxyCODONE-aceta minophen (PERCOCET) 5-325 mg per tablet Take 1 (one) tablet by mouth every 6 (six) hours as needed for pain . 5 Active sulfamethoxazol e-trimethoprim (BACTRIM,SEPTRA ) 400-80 mg per tablet 5 Active oxyCODONE-aceta minophen (PERCOCET) 5-325 mg per tabletIndicatio ns:Acute pain of right lower extremity Take 1 (one) tablet by mouth every 6 (six) hours as needed for pain (Days supply per fill: 3) . 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 Pt was placed on Xarelto and [...] Encounters Date Type Department Care Team Description 04/23/2025 3:15 PM EDT Follow-Up [facility] [address] [facility] [address] [place] [phone] Gracy Millan MD Critical lower limb ischemia (HCC) (Primary Dx) 04/23/2025 12:25 PM EDT - 04/23/2025 11:59 PM EDT Hospital Encounter [facility] [address] [place] [address] Gracy Millan MD Discharge Disposition: Home 04/23/2025 12:25 PM EDT - 04/23/2025 11:59 PM EDT Hospital Encounter [facility] [address] [place] [address] Gracy Millan MD Discharge Disposition: Home 04/23/2025 Travel 04/02/2025 12:00 PM EDT Follow-Up [facility] [address] [facility] [address] [place] [phone] Gracy Millan MD Critical lower limb ischemia (HCC) (Primary Dx) 04/02/2025 Travel 03/18/2025 Documentation [facility] [address] [facility] [place] [address] Brenna Galloway RN 03/17/2025 12:20 PM EDT Anesthesia Event [facility] [address] [place] [address] Skyler Gil MD Reardon, Michael E., MD 03/17/2025 12:10 PM EDT - 03/17/2025 5:10 PM EDT Surgery [facility] [address] [place] [phone] Gracy Millan MD RIGHT FEMORAL TO TIBIAL BYPASS WITH ARM VEIN. Angiogram 03/14/2025 11:04 AM EDT - 03/21/2025 6:29 PM EDT Hospital Encounter [facility] Vascular Thoracic Surgery [address] [place], [place] [phone] Elaine Macdonald MD [facility] DO Dooling, Patrick Cassidy, MD Discharge Disposition: Home 03/14/2025 10:00 AM EDT Office Visit [facility] [address] [place] [address] [address] [place] [phone] Gracy Millan MD Hoover, Ashly Swan, KAMARI Acute pain of right lower extremity (Primary Dx) 03/14/2025 7:30 AM EDT - 03/14/2025 11:59 PM EDT Hospital Encounter [facility] Peripheral Vascular Lab [address] [place] [address] Gracy Millan MD Discharge Disposition: Home 03/14/2025 7:26 AM EDT - 03/14/2025 11:59 PM EDT Hospital Encounter [facility] [address] [place] [address] Gracy Millan MD Discharge Disposition: Home 03/14/2025 Documentation [facility] [address] [facility] [address] [place] [phone] Ludivina Garcia RN 03/14/2025 Documentation [facility] [address] [facility] [address] [place] [phone] Ludivina Garcia RN 03/14/2025 Travel 03/13/2025 Documentation [facility] Non-Invasive [facility] [place] [phone] Ludivina Garcia, RN from Last 3 Months Immunizations Immunization Administration Dates Next Due INFLUENZA IIV3 65+YO FLUAD [address] 06/18/2019 Influenza, Injectable, Quadrivalent 05/22/2017 Influenza, high [...] drink = 0.6 oz pur e alcohol) [facility] Utilities Answer Date Recorded In the past 12 months has [facility] [employer], [employer], oil, or water [employer] threatened to shut off services in your [...] living in a intermediate (including now)? No 03/14/2025 Sex and Gender Information Value Date Recorded Sex Assigned at Not on file Legal Sex Male 2:37 PM EDT Gender Identity Male 09/04/2018 8:23 PM EST Sexual Orientation Straight 09/04/2018 8: 23 PM EST Last Filed Vital Signs Vital Sign Reading Time Taken Comments Blood Pressure 162/72 04/23/2025 2:36 PM EDT Pulse 64 04/23/2025 2:36 PM EDT Temperature 36.7 C (98.1 F) 03/21/2025 2:58 PM EDT Respiratory Rate 16 04/23/2025 2:30 PM EDT Oxygen Saturation 97% 04/23/2025 2:30 PM EDT Inhaled Oxygen Concentration - - Weight 111.1 kg (245 lb) 04/23/2025 2:30 PM EDT Height 188 cm (6' 2 ) 04/23/2025 2:30 PM EDT Body Mass Index 31.46 04/23/2025 2:30 PM EDT Plan of Treatment Health Maintenance Due Date Last Done Comments Tetanus: Every 10yrs 1940 Zoster Vaccines (1 of 2) 1989 Falls Risk Assessment 01/04/2004 Respiratory Syncytial Virus Immunization: Risk, 60-74 Risk, or 75+ (1 - 1-dose 75+ series) 2014 Pneumococcal Vaccine: Age 50 + (2 of 2 - PPSV23, PCV20, or PCV21) 07/13/2015 05/18/2015 Medicare Wellness Visit 06/06/2024 06/06/2023 COVID-19 Vaccine (2024-2 6 season) 2025 09/09/2021, 10/28/2020, 09/30/2020 Influenza Vaccine (#1) 2025 9, 06/06/2018, 05/22/2017, Additional history exists Depression Screening/Follow- Up (PHQ-2/9) 03/15/2026 03/15/2025 Medical Devices Implanted Type Area Juke Box Servicer Device Identifier Shelf Expiration Date Model / Serial / Lot Hemostat 2 X 4in Surgicel Fibrillar - [id number] Implanted:Qty: 1 on 09/07/2018 by Gracy Millan MD at [facility] Left: Leg [facility] 02/24/20211961 / / [id number] Hemostat 2 X 4in Surgicel Fibrillar - Sna Implanted:Qty: 1 on 03/17/2025 by Gracy Millan MD at [facility] 05/27/20271961 / NA / [id number] Sealant 10ml Hemostatic Matrix Fast Prep Floseal W/Recothrom - [id number] Implanted:Qty: 1 on 03/17/2025 by Gracy Millan MD at [facility] Right: Arterial DEL CASTILLO BIO [id number] 10/30/2026 [id number] / / [id number] Procedures Procedure Name Priority Date/Time Associated Diagnosis Comments US ANKLE/BRACHIAL INDICES EXTREMITY LIMITED Routine 04/23/2025 2:18 PM EDT PVD (peripheral vascular disease) Critical lower limb ischemia (HCC) US DUPLEX LE BYPASS GRAFT COMPL BILAT Routine 04/23/2025 2:18 PM EDT PVD (peripheral vascular disease) Critical lower limb ischemia (HCC) CBC Routine 03/21/2025 6:06 AM EDT MAGNESIUM [...] IV Routine 03/17/2025 12:4 0 PM EDT [place] ARTL CATHJ/CANNULJ MNTR/TRANSFUSION SPX PRQ Routine 03/17/2025 12:40 PM EDT AIRWAY ETT Routine 03/17/2025 12:40 PM EDT [place] BYP FEM-ANT TIBL PST TIBL PRONEAL ART/OTH [...] 03/12/2025 from Last 3 Months Results * US Doppler ankle/brachial index (04/23/2025 2:18 PM EDT) Only the most recent of3 resultswithin the time period is included. 04/23/2025 12:5 3 PM EDT Narrative FUJI SYNAPSE CV - 04/23/2025 2:41 PM EDT Patient Info Name: Tristin Gray Age: 85 years : 1940 Gender: Male Exam Date: 04/23/2025 12:53 PM Patient Status: OUTPATIENT Site Location: [facility] Indications I73.9 - Peripheral vascular disease, unspecified I70.229 - Atherosclerosis of eastern [place] arteries of extremities with rest pain, unspecified extremity Procedure Description 92303 Limited bilateral noninvasive physiologic studies of upper or lower extremity arteries with bidirectional Doppler/PVR waveform analysis at 1-2 levels. Shipboard Intelligence Analyst: Ying Fiore [facility], RVT Staff Ordering Physician: Gracy Millan MD, VI Conclusions * Right. * Right ankle brachial [...] Segmental BP RIGHT Brachial A mmH RIGHT SYSTEMS SOFTWARE DESIGNER mmH RIGHT SYSTEMS SOFTWARE DESIGNER Index: 0.96 RIGHT DPA mmH RIGHT DPA Index: 0.92 RIGHT YAMILE Index: 0.96 LEFT Brachial A mmH LEFT SYSTEMS SOFTWARE DESIGNER Index: 0.48 LEFT SYSTEMS SOFTWARE DESIGNER mmH LEFT DPA Index: 0.61 LEFT DPA mmH LEFT YAMILE Index: 0.61 Doppler RIGHT SYSTEMS SOFTWARE DESIGNER Waveform: Multiphasic RIGHT DPA Waveform: Multiphasic LEFT SYSTEMS SOFTWARE DESIGNER Waveform: Monophasic LEFT DPA Waveform: Monophasic , PVR RIGHT Ankle Grade: Abnormal RIGHT Transmetarsal Grade: Abnormal LEFT Ankle Grade: Abnormal Report Signatures Finalized by Nemo Conner MD, PHD, RVT on 04/23/2025 02:41 PM Procedure Note Nemo Conner MD - 04/23/2025 Patient Info Name: Tristin Gray Age: 85 years : 1940 Gender: Male Exam Date: 04/23/2025 12:53 PM Patient Status: OUTPATIENT Site Location: [facility] Indications I73.9 - Peripheral vascular disease, unspecified I70.229 - Atherosclerosis of eastern [place] arteries of extremities withrest pain, unspecified extremity Procedure Description 83108 Limited bilateral noninvasive physiologic studies of upper orlower extremity arteries with bidirectional Doppler/PVR waveform analysis at1-2 levels. Shipboard Intelligence Analyst: Ying Fiore RD, RVT Staff Ordering Physician: Gracy Millan MD, [...] Segmental BP RIGHT Brachial A mmH RIGHT SYSTEMS SOFTWARE DESIGNER mmH RIGHT SYSTEMS SOFTWARE DESIGNER Index: 0.96 RIGHT DPA mmH RIGHT DPA Index: 0.92 RIGHT YAMILE Index: 0.96 LEFT Brachial A mmH LEFT SYSTEMS SOFTWARE DESIGNER Index: 0.48 LEFT SYSTEMS SOFTWARE DESIGNER mmH LEFT DPA Index: 0.61 LEFT DPA mmH LEFT YAMILE Index: 0.61 Doppler RIGHT SYSTEMS SOFTWARE DESIGNER Waveform: Multiphasic RIGHT DPA Waveform: Multiphasic LEFT SYSTEMS SOFTWARE DESIGNER Waveform: Monophasic LEFT DPA Waveform: Monophasic , PVR RIGHT Ankle Grade: Abnormal RIGHT Transmetarsal Grade: Abnormal LEFT Ankle Grade: Abnormal Report Signatures Finalized by Nemo Conner MD, PHD, RVT on 04/23/2025 02:41 PM us Gracy Millan MD CV VASCULAR ORDERABLES Fin al Result MARK Dynis LILIANA * Duplex Bypass Graft LE Bilateral (04/23/2025 2:18 PM EDT) 04/23/2025 12:5 3 PM EDT Narrative MARK RAINEY CV - 04/23/2025 2:41 PM EDT Patient Info Name: Tristin Gray Age: 85 years : 1940 Gender: Male Exam Date: 04/23/2025 12:53 PM Patient Status: OP SERIES Site Location: [facility] Indications I73.9 - Peripheral vascular disease, unspecified I70.229 - Atherosclerosis of eastern shosh[place] arteries of extremities with rest pain, unspecified extremity Procedure Description 08179 Duplex scan of lower extremity arteries or arterial bypass grafts using B-mode, color and spectral Doppler; unilateral or limited study. Shipboard Intelligence Analyst: Jigna Vera RDMS, RVT Staff Ordering Physician: [...] Artery Segment: Gabriela LEFT Inflow Artery Segment: INTERNET PROGRAMMER LEFT Inflow Artery PSV: 126 LEFT [...] PM Patient Status: OP SERIES Site Location: [facility] Indications I73.9 - Peripheral vascular disease, unspecified I70.229 - Atherosclerosis of [place] arteries of extremities withrest pain, unspecified extremity Procedure Description 12525 Duplex scan of lower extremity arteries or arterial bypassgrafts using B-mode, color and spectral Doppler; unilateral or limited study. Shipboard Intelligence Analyst: Jigna Vera RDMS, RVT Staff Ordering Physician: [...] Artery Segment: Gabriela LEFT Inflow Artery Segment: INTERNET PROGRAMMER LEFT Inflow Artery PSV: 126 LEFT [...] Fin al Result FUJI SYNAPSE CV * (ABNORMAL) CBC (03/21/2025 6:06 AM EDT) Only the most recent of7 resultswithin the time period is included. WBC 4.33(L) 4.50 - 11.00 K/mcL 03/21/2025 6:41 AM T [facility] RBC 3.16(L) 4.50 - 5.90 M/mcL 03/21/2025 6:41 AM [facility] Hemoglobin 10.5(L) 13.5 - 17.5 g/dL 03/21/2025 6:41 AM [facility] Hematocrit 30.0(L) 41.0 - 53.0 % 03/21/2025 6:41 AM [facility] MCV 94.9 80.0 - 100.0 fL 03/21/2025 6:41 AM [facility] MCH 33.2 26.0 - 34.0 pg 03/21/2025 6:41 AM [facility] MCHC 35.0 31.0 - 37.0 g/dL 03/21/2025 6:41 AM [facility] Platelets 213 150 - 400 K/mcL 03/21/2025 6:41 AM [facility] RDW - CV 13.7 11.6 - 14.8 % 03/21/2025 6:41 AM [facility] MPV 9.7 9.4 - 12.4 fL 03/21/2025 6:41 AM [facility] Nucleated RBC 0.0 % 03/21/2025 6:41 AM [facility] Nucleated RBC Abs 0.00 0.00 - 0.00 K/mcL 03/21/2025 6:41 AM [facility] Blood BLOOD SPECIMEN / Unknown Venipuncture / Unknown 03/21/2025 6:06 AM EDT 03/21/2025 6:20 AM EDT Skyler Otto MD LAB BLOOD ORDERABLES Final Result [facility] [address] [place] [id number] * Magnesium (03/21/2025 6:06 AM EDT) Only the most recent of7 resultswithin the time period is included. Magnesium 2.1 1.6 - 2.4 mg/dL 03/21/2025 6:54 AM T [facility] Blood BLOOD SPECIMEN / Unknown Venipuncture / Unknown 03/21/2025 6:06 AM EDT 03/21/2025 6:20 AM EDT Skyler Otto MD LAB BLOOD ORDERABLES Final Result Performing Organization Address [facility] Co de Phone Number [facility] [address] [place] [phone] * (ABNORMAL) Basic Metabolic Panel (03/21/2025 6:06 AM EDT) Only the most recent of7 resultswithin the time period is included. Sodium 140 135 - 145 mmol/L 03/21/2025 6:54 AM [facility] Potassium 4.0 3.5 - 5.1 mmol/L 03/21/2025 6:54 AM [facility] Comment:Slightly Hemolyzed Chloride 108 98 - 108 mmol/L 03/21/2025 6:54 AM [facility] Bicarbonate 22 21 - 32 mmol/L 03/21/2025 6:54 AM [facility] Anion Gap 14 10 - 20 mmol/L 03/21/2025 6:54 AM [facility] Glucose 109(H) 65 - 99 mg/dL 03/21/2025 6:54 AM [facility] BUN 19 8 - 25 mg/dL 03/21/2025 6:54 AM [facility] Creatinine 0.98 0.80 - 1.30 mg/dL 03/21/2025 6:54 AM EDT [facility] eGFR 75 >=60 mL/min/1.7 3 m2 03/21/2025 6:54 AM EDT [facility] Comment:Estimated GFR was ca lculated using the 2020 CKD-EPI creatinine equation. BUN/Creatinine Ratio 19.4 10.0 - 20.0 03/21/2025 6:54 AM EDT [facility] Calcium 9.4 8.4 - 10.2 mg/dL 03/21/2025 6:54 AM EDT [facility] Blood BLOOD SPECIMEN / Unknown Venipuncture / Unknown 03/21/2025 6:06 AM EDT 03/21/2025 6:20 AM EDT Narrative [facility] - 03/21/2025 6:54 AM EDT [facility] has implemented the eGFR calculation approach that does not have a coefficient for race that conforms to the NKF-ASN Task Force Recommendations. us Skyler Otto MD LAB BLOOD ORDERABLES Final Result [facility] [address] [place] [address] * (ABNORMAL) Hemoglobin and Hematocrit (03/17/2025 11:09 PM EDT) Only the most recent of2 resultswithin the time period is included. Hemoglobin 11.2(L) 13.5 - 17.5 g/dL 03/17/2025 11:30 PM EDT [facility] Hematocrit 30.5(L) 41.0 - 53.0 % 03/17/2025 11:30 PM EDT [facility] Blood BLOOD SPECIMEN / Unknown Venipuncture / Unknown 03/17/2025 11:09 PM EDT 03/17/2025 11:26 PM EDT Ana Luisa Murray MD LAB BLOOD ORDERABLES Final Resul t [facility] [address] [place] [phone] * XR OR Angio Lower Extremity Right (03/17/2025 4:13 PM EDT) Anatomical Region Laterality Modality Radio Fluoroscop y 03/18/2025 7:53 AM EDT Impressions 03/18/2025 10:04 AM EDT Fluoroscopy used for intraoperative angiogram. Refer to the operative report for details. [facility]/[employer] Workstation ID: [id number] Narrative 03/18/2025 10:04 AM [...] 7.18. FINDINGS: See impression. Procedure Note Sylvia Rivera MD - 03/18/2025 EXAMINATION: XR OR ANGIO [...] angiogram. Refer to the operativereport for details. [facility]/[employer] Workstation ID: [id number] us Gracy Millan MD IMG FLUOROSCOPY ORDERABLES Final Result * Peripheral IV (03/17/2025 12:40 PM EDT) Narrative Serjio Olivarez MD - 03/17/2025 12:40 PM EDT Serjio Olivarez MD 03/17/2025 12:40 PM Peripheral IV Related to anesthetic: yes Final size: 18 G Final orientation: right Final location: forearm Site prep: alcohol Local anesthetic: none Technique: ultrasound guidance Number of attempts: 1 Result [facility] Serjio Olivarez MD [place] ANESTHESIA Final Re sult * [place] ARTL CATHJ/CANNULJ MNTR/TRANSFUSION SPX PRQ (03/17/2025 12:40 [...] Final orientation: right Final location: radial Monitoring: leather roller, pulse oximetry, heart rate and BP Sedation: general anesthesia (see MAR) Prep: ChloraPrep Local infiltration: lidocaine 1% Technique: landmarks (Palpation) Final needle: 22 G Final catheter: 20 G x 1 3/4'' Number of attempts: 1 Assessment: draws and flushes without difficulty Post procedure: taped, sterile dressing applied and EBL <10 mL Patient tolerance: patient tolerated the procedure well with no immediate complications Result [facility] Serjio Olivarez MD [place] ANESTHESIA Final Re sult * ETT Airway [...] tape Bite block: none Lip/tooth/tongue trauma: no Serjio Olivarez MD [place] ANESTHESIA Final Re sult * (ABNORMAL) POC Glucose (03/17/2025 11:01 AM EDT) Glucose 105(H) 65 - 99 mg/dL 03/17/2025 11:02 AM EDT [facility] Blood BLOOD SPECIMEN / Unknown 03/17/2025 11:01 AM EDT 03/17/2025 11:02 AM EDT [facility] POCT ORDERABLES - DEV ICE Final Result [facility] [address] [place] [address] * (ABNORMAL) APTT Heparin Coverage (03/17/2025 3:53 AM EDT) Only the most recent of4 resultswithin the time period is included. APTT 92(H) 23 - 34 seconds 03/17/2025 5:14 AM EDT [facility] Blood BLOOD SPECIMEN / Unknown Venipuncture / Unknown 03/17/2025 3:53 AM EDT 03/17/2025 4:29 AM EDT Narrative [facility] - 03/17/2025 5:14 AM EDT Therapeutic range for APTT's is 68 - 104 seconds Gracy Millan MD LAB BLOOD ORDERABLES Final Result [facility] [address] [place] [address] * ECG 12 Lead (03/16/2025 11:44 AM EDT) Only the most recent of3 resultswithin the time period is included. Ventricular Rate 63 BPM MUSE Atrial Rate 63 BPM MUSE P-R Interval 208 ms MUSE QRS Duration 102 ms MUSE Q-T Interval 454 ms MUSE QTC Calculation (Bezet) 464 ms MUSE P [place] 86 degrees MUSE R [place] 45 degrees MUSE T [place] 44 degrees MUSE 03/16/2025 11:4 4 AM EDT 03/17/2025 7:58 AM EDT Narrative MUSE - 03/17/2025 7:58 AM EDT Sinus rhythm with Premature supraventricular complexes Otherwise normal ECG Confirmed by MARY CARLTON ([id number]) on 03/17/2025 7:58:31 AM us Ana Luisa Murray MD ECG ORDERABLES Final Result MUSE * (ABNORMAL) PT/INR (03/16/2025 9:07 AM EDT) Only the most recent of2 resultswithin the time period is included. Protime (PT) 14.7(H) 11.8 - 14.3 seconds 03/16/2025 10:22 AM EDT [facility] INR 1.1 0.8 - 1.1 03/16/2025 10:22 AM EDT [facility] Blood BLOOD SPECIMEN / Unknown Venipuncture / Unknown 03/16/2025 9:07 AM EDT 03/16/2025 9:48 AM EDT Narrative [facility] - 03/16/2025 10:22 AM EDT During the induction phase of oral anticoagulation, the INR may not reflect the anticoagulation status of the patient. Therapeutic ranges for INR's are: Most clinical situations: INR 2.0-3.0 Mechanical Prosthetic Valve: INR 2.5-3.5 Critical: INR >5.0 us Alexei Salomon MD LAB BLOOD ORDERABLES Final Res ult [facility] [address] [place] [address] * Type and Screen (03/16/2025 9:07 AM EDT) ABORh O Positive 03/16/2025 10:37 AM EDT [facility] Antibody Screen Negative 03/16/2025 10:37 AM EDT [facility] Specimen Expires 03/19/2025 23:59 EST 03/16/2025 10:37 AM EDT [facility] Blood BLOOD SPECIMEN / Unknown Venipuncture / Unknown 03/16/2025 9:07 AM EDT 03/16/2025 9:48 AM EDT us Alexei Salomon MD BLOOD BANK TEST ORDERABLES Fin al Result Performing Organization Address City/[facility]/ZIP Co de Phone Number [facility] [address] [place], [place] [id number] * APTT (03/15/2025 7:52 PM EDT) APTT 33 23 - 34 seconds 03/15/2025 8:14 PM EDT [facility] Blood BLOOD SPECIMEN / Unknown Venipuncture / Unknown 03/15/2025 7:52 PM EDT 03/15/2025 7:56 PM EDT Narrative [facility] - 03/15/2025 8:14 PM EDT Therapeutic range for APTT's is 68 - 104 seconds us Mary Madrigal MD LAB BLOOD ORDERABLE S Final Result Performing Organization Address City/[facility] Co de Phone Number [facility] [address] [place], [place] [phone] * Ultrasound Saphenous vein mapping (03/14/2025 9:56 PM EDT) 03/14/2025 9:26 PM EDT Narrative FUJI SYNAPSE CV - 03/16/2025 11:15 AM EDT Patient Info Name: Tristin Gray Age: 85 years : 1940 Gender: Male Exam Date: 03/14/2025 9:26 PM Patient Status: INPATIENT Site Location: [facility] Indications Z01.810 - Encounter for preprocedural cardiovascular examination Procedure Description 76315 Duplex examination using B-mode, color and spectral Doppler of extremity veins including responses to compression and other maneuvers; complete bilateral study. Shipboard Intelligence Analyst: Cristian Ellis RVT, [facility] Staff Ordering Physician: Alexei [...] Hein MD, RPVI on 03/16/2025 11:15 AM Procedure Note Aaron Hein MD - 03/16/2025 Patient Info Name: Tristin Gray Age: 85 years : 1940 Gender: Male Exam Date: 03/14/2025 9:26 PM Patient Status: INPATIENT Site Location: [facility] Indications Z01.810 - Encounter for preprocedural cardiovascular examination Procedure Description 17520 Duplex examination using B-mode, color and spectral Doppler of extremity veins including responses to compression and other maneuvers; complete bilateral study. Shipboard Intelligence Analyst: Cristian Ellis RVT, [facility] Staff Ordering Physician: Alexei [...] Hein MD, RPVI on 03/16/2025 11:15 AM us Alexei Salomon MD CV VASCULAR ORDERABLES Final R esult [employer] CV * Upper extremity vein mapping (03/14/2025 9:55 PM EDT) 03/14/2025 9:20 PM EDT Narrative algranoMilan Dynis CV - 03/16/2025 11:14 AM EDT Patient Info Name: Tristin Gray Age: 85 years : 1940 Gender: Male Exam Date: 03/14/2025 9:20 PM Patient Status: INPATIENT Site Location: [facility] Indications Z01.810 - Encounter for preprocedural cardiovascular examination Procedure Description 67210 Duplex examination using B-mode, color and spectral Doppler of extremity veins including responses to compression and other maneuvers; complete bilateral study. Shipboard Intelligence Analyst: Cristian Ellis RVT, [facility] Staff Ordering Physician: Alexei [...] PM Patient Status: INPATIENT Site Location: [facility] Indications Z01.810 - Encounter for preprocedural cardiovascular examination Procedure Description 14457 Duplex examination using B-mode, color and spectral Doppler of extremity veins including responses to compression and other maneuvers; complete bilateral study. Shipboard Intelligence Analyst: Cristian Ellis RVT, [facility] Staff Ordering Physician: Alexei [...] ORDERABLES Final R esult Performing Organization Address City/State/[facility] Co de Phone Number FUJI SYNAPSE CV * [facility] (03/14/2025 11:28 AM EDT) Extra Tube Hold for add-ons. 03/14/2025 3:59 PM EDT [facility] Comment:Auto resulted. Blood BLOOD SPECIMEN / Unknown Venipuncture / Unknown 03/14/2025 11:28 AM EDT 03/14/2025 11:32 AM EDT us Elaine Macdonald MD LAB BLOOD ORDERABLES Fin al Result [facility] [address] [place] [address] * [place] (03/14/2025 11:28 AM EDT) Extra Tube Hold for add-ons. 03/14/2025 1:58 PM EDT [facility] Comment:Auto resulted. Blood BLOOD SPECIMEN / Unknown Venipuncture / Unknown 03/14/2025 11:28 AM EDT 03/14/2025 11:32 AM EDT Elaine Macdonald MD LAB BLOOD ORDERABLES Fin al Result Performing Organization Address City/[facility]/ZIP Co de Phone Number [facility] [address] [place] [address] * [place] (03/14/2025 11:28 AM EDT) Blood BLOOD SPECIMEN / Unknown Venipuncture / Unknown 03/14/2025 11:28 AM EDT 03/14/2025 11:32 AM EDT Elaine Macdonald MD LAB BLOOD ORDERABLES Fin al Result Performing Organization Address [facility]/ZIP Co de Phone Number [facility] [address] [place] [address] * (ABNORMAL) Chem 7 (03/14/2025 11:28 AM EDT) Sodium 139 135 - 145 mmol/L 03/14/2025 12:09 PM EDT [facility] Potassium 3.8 3.5 - 5.1 mmol/L 03/14/2025 12:09 PM EDT [facility] Chloride 102 98 - 108 mmol/L 03/14/2025 12:09 PM EDT [facility] Bicarbonate 25 21 - 32 mmol/L 03/14/2025 12:09 PM EDT [facility] Anion Gap 16 10 - 20 mmol/L 03/14/2025 12:09 PM EDT [facility] Glucose 100(H) 65 - 99 mg/dL 03/14/2025 12:09 PM EDT [facility] BUN 20 8 - 25 mg/dL 03/14/2025 12:09 PM T [facility] Creatinine 1.12 0.80 - 1.30 mg/dL 03/14/2025 12:09 PM EDT [facility] eGFR 64 >=60 mL/min/1.7 3 m2 03/14/2025 12:09 PM [facility] Comment:Estimated GFR was ca lculated using the 2020 CKD-EPI creatinine equation. BUN/Creatinine Ratio 17.9 10.0 - 20.0 03/14/2025 12:09 PM T [facility] Blood BLOOD SPECIMEN / Unknown Venipuncture / Unknown 03/14/2025 11:28 AM EDT 03/14/2025 11:32 AM EDT [facility] - 03/14/2025 12:09 PM EDT [facility] has implemented the eGFR calculation approach that does not have a coefficient for race that conforms to the NKF-ASN Task Force Recommendations. Dashawn Stallings PA-C LAB BLOOD ORDERABLES F inal Result [facility] [address] [place] [address] * (ABNORMAL) CBC Auto Differential (03/14/2025 11:28 AM EDT) WBC 3.50(L) 4.50 - 11.00 K/mcL 03/14/2025 12:15 PM [facility] RBC 4.34(L) 4.50 - 5.90 M/mcL 03/14/2025 12:15 PM [facility] Hemoglobin 13.2(L) 13.5 - 17.5 g/dL 03/14/2025 12:15 PM T [facility] Hematocrit 39.3(L) 41.0 - 53.0 % 03/14/2025 12:15 PM [facility] MCV 90.6 80.0 - 100.0 fL 03/14/2025 12:15 PM EDT [facility] MCH 30.4 26.0 - 34.0 pg 03/14/2025 12:15 PM [facility] MCHC 33.6 31.0 - 37.0 g/dL 03/14/2025 12:15 PM [facility] Platelets 173 150 - 400 K/mcL 03/14/2025 12:15 PM [facility] RDW - CV 13.5 11.6 - 14.8 % 03/14/2025 12:15 PM [facility] MPV 9.3(L) 9.4 - 12.4 fL 03/14/2025 12:15 PM [facility] Neutrophils 54.0 % 03/14/2025 12:15 PM [facility] Comment:Peripheral smear rev iewed manually Lymphocytes 18.6 % 03/14/2025 12:15 PM [facility] Monocytes 23.1 % 03/14/2025 12:15 PM [facility] Eosinophils 3.4 % 03/14/2025 12:15 PM [facility] Basophils 0.6 % 03/14/2025 12:15 PM [facility] IG Percent 0.30 % 03/14/2025 12:15 PM [facility] Comment:The IG parameter is the percentage of metamyelocytes, myelocytes and promyelocytes. An immature granulocyte count (IG) of 1% or more suggests the possibility of infection, an IG count of 3% is very likely related to an infection. Neutrophils Abs 1.89 1.70 - 7.00 K/mcL 03/14/2025 12:15 PM [facility] Lymphocytes Abs 0.65(L) 0.90 - 4.00 K/mcL 03/14/2025 12:15 PM [facility] Monocytes Abs 0.81 0.30 - 0.90 K/mcL 03/14/2025 12:15 PM [facility] Eosinophils Abs 0.12 0.00 - 0.50 K/mcL 03/14/2025 12:15 PM [facility] Basophils Abs 0.02 0.00 - 0.30 K/mcL 03/14/2025 12:15 PM EDT [facility] IG Absolute 0.01 0.00 - 0.30 K/mcL 03/14/2025 12:15 PM EDT [facility] Nucleated RBC 0.0 % 03/14/2025 12:15 PM EDT [facility] Nucleated RBC Abs 0.00 0.00 - 0.00 K/mcL 03/14/2025 12:15 PM EDT [facility] Blood BLOOD SPECIMEN / Unknown Venipuncture / Unknown 03/14/2025 11:28 AM EDT 03/14/2025 11:32 AM EDT Dashawn Stallings PA-C LAB BLOOD ORDERABLES F inal Result [facility] [address] [place] [address] * Ultrasound duplex arterial leg right (03/14/2025 9:15 AM EDT) 03/14/2025 8:20 AM EDT Narrative FUJI SYNAPSE CV - 03/14/2025 11:57 AM EDT Patient Info Name: Tristin Gray Age: 85 years : 1940 Gender: Male Exam Date: 03/14/2025 8:20 AM Patient Status: OUTPATIENT Site Location: [facility] Indications I73.9 - Peripheral vascular disease, unspecified Procedure Description 60405 Duplex scan of lower extremity arteries or arterial bypass grafts using B-mode, color and spectral Doppler; unilateral or limited study. Shipboard Intelligence Analyst: Ernestina Campos RVT, RDMS Staff Ordering Physician: Gracy Millan MD, RPVI Conclusions * 50-99% stenosis in the right mid superficial femoral artery. * Unable to obtain right external iliac artery images due to bandaging from recent procedure. Risk Factors Patient with a history of hypertension, hyperlipidemia, CAD and PAD. Measurements RIGHT INTERNET PROGRAMMER PSV (cm/s): 115 RIGHT INTERNET PROGRAMMER EDV (cm/s): 7 RIGHT Prox PFA PSV [...] Distal LAUREL EDV (cm/s): 6 RIGHT Prox SYSTEMS SOFTWARE DESIGNER PSV (cm/s): 81 RIGHT Prox SYSTEMS SOFTWARE DESIGNER EDV (cm/s): 14 RIGHT Mid SYSTEMS SOFTWARE DESIGNER PSV (cm/s): 38 RIGHT Mid SYSTEMS SOFTWARE DESIGNER EDV (cm/s): 6 RIGHT Distal SYSTEMS SOFTWARE DESIGNER PSV (cm/s): 57 RIGHT Distal SYSTEMS SOFTWARE DESIGNER EDV (cm/s): 20 RIGHT Prox Gabriela PSV [...] RVT, RPVI, FSVM on 03/14/2025 11:57 AM Procedure Note Radah Lomas DO - 03/14/2025 Patient Info Name: Tristin Gray Age: 85 years : 1940 Gender: Male Exam Date: 03/14/2025 8:20 AM Patient Status: OUTPATIENT Site Location: [facility] Indications I73.9 - Peripheral vascular disease, unspecified Procedure Description 42024 Duplex scan of lower extremity arteries or arterial bypassgrafts using B-mode, color and spectral Doppler; unilateral or limited study. Shipboard Intelligence Analyst: Ernestina Campos RVLatricia, [facility] Staff Ordering Physician: Gracy Millan MD, VI Conclusions * 50-99% stenosis in the right mid superficial femoral artery. * Unable to obtain right external iliac artery images due to bandagingfrom recent procedure. Risk Factors Patient with a history of hypertension, hyperlipidemia, CAD and PAD. Measurements RIGHT INTERNET PROGRAMMER PSV (cm/s): 115 RIGHT INTERNET PROGRAMMER EDV (cm/s): 7 RIGHT Prox PFA PSV [...] Distal LAUREL EDV (cm/s): 6 RIGHT Prox SYSTEMS SOFTWARE DESIGNER PSV (cm/s): 81 RIGHT Prox SYSTEMS SOFTWARE DESIGNER EDV (cm/s): 14 RIGHT Mid SYSTEMS SOFTWARE DESIGNER PSV (cm/s): 38 RIGHT Mid SYSTEMS SOFTWARE DESIGNER EDV (cm/s): 6 RIGHT Distal SYSTEMS SOFTWARE DESIGNER PSV (cm/s): 57 RIGHT Distal SYSTEMS SOFTWARE DESIGNER EDV (cm/s): 20 RIGHT Prox Gabriela PSV [...] Radha Lomas DO, RVT, RPVI, FSVM on 511:57 AM us Gracy Millan MD CV VASCULAR ORDERABLES Fin al Result FUJI SYNAPSE CV * ELECTROPHYSIOLOGY REPORT (03/12/2025) 03/12/2025 us Gracy Millan MD SCANNED ORDERS Final Resu lt from Last 3 Months Insurance [id number] (Home) [address] [place] [id number] [facility] ADVANTAGE CHOICE PPO Advance Directives For more information, please contact: [phone] Documents on File Type Date Recorded Patient Calculus Tutor Expl anation Power of Appliance Technician 10/13/2018 9:03 PM RECEI SKIP 10/13/2018 * [...] 12:09 AM 01/21/2022 5:56 PM Care Teams Beamer Operator Relationship Specialty Start Date End Date Nikko Bird MD [address] [place], [place] [id number] PCP - General Family Medicine 09/04/18 System, Provider Not In Radiation Safety Officer 11/09/22
--- OUTSIDE RECORDS SUMMARY | 2025-04-30 09:41 | XMS_ITS | Encounter Summary ---
Author Organization [facility] Address [address] [place] [address] Care Team Providers Care Can Stacker Name Role Phone Nikko Bird MD Unavailable Nikko Bird MD Primary Care Provider [phone], Mary SHOP MECHANIC Unavailable [phone] Lorraine Morgan RN Unavailable Elaine Saab SHOP MECHANIC Unavailable Encounter Details Date Type Department Care Team (Late st Contact Info) Description 05/13/2024 Abstract [facility] [place] [facility] [address] [facility] 110 [place] [id number] Nikko Bird MD 112 [facility] 110 [place] [address] Social History Tobacco Use Types Packs/Day Years [...] documented as of this encounter Care Teams Can Stacker Relationship Specialty Start Date End Date Nikko Bird MD [address] [facility] 110 [place] [address] PCP - [employer] 08/28/17 Nikko Bird MD [address] [facility] 110 [place] [address] PCP - General Family Medicine 03/09/23MondayMary LPN [address] [facility] 110 [place] [address] Licensed Practical Nurse Family Medicine 06/21/24 Lorraine Morgan, KULDEEP [address] [place], [place] [id number] Licensed Practical Nurse Family Medicine 10/04/2411/15 Elaine Saab LPN [address] [facility] 110 [place] [address] 11/15/24 documented as of this encounter
--- OUTSIDE RECORDS SUMMARY | 2025-04-30 09:41 | XMS_ITS | Encounter Summary ---
Author Organization [facility] Address [address] [place] [address] Care Team Providers Care Physician Office Assistant Name Role Phone Nikko Bird MD Unavailable Nikko Bird MD Primary Care Provider [phone], Mary WILDLIFE BIOLOGY TECHNICIAN Unavailable [phone], Mary WILDLIFE BIOLOGY TECHNICIAN Unavailable [phone] Lorraine Morgan RN Unavailable [phone] Elaine Saab WILDLIFE BIOLOGY TECHNICIAN Unavailable Encounter Details Date Type Department Care Team (Late st Contact Info) Description 06/14/2023 Abstract [facility] [place] [facility] 112 [facility] 110 [place] [address] Nikko Bird MD 112 [facility] 110 [place], [place] [id number] Social History Tobacco Use Types Packs/Day Years [...] on filedocumented in this encounter Care Teams Physician Office Assistant Relationship Specialty Start Date End Date Nikko Bird MD [address] [facility] [address] [place] [address] PCP - [employer] 08/28/17 Nikko Bird MD [address] [facility] [address] [place] [address] PCP - General Family Medicine 03/09/23Monday, ISABELLA Hernandez [address] [place] [address] Licensed Practical Nurse Family Medicine 09/21/2309/21, ISABELLA Hernandez [address] [place] [address] Licensed Practical Nurse Family Medicine 06/21/24 Lorraine Morgan, RN [address] [place] [address] Licensed Practical Nurse Family Medicine 10/04/2411/15 Elaine Saab LPN [address] [facility] 110 [place] [address] 11/15/24 documented as of this encounter
--- OUTSIDE RECORDS SUMMARY | 2025-04-30 09:41 | XMS_ITS | Encounter Summary ---
Author Organization [facility] Address [address] [place] [address] Care Team Providers Care Box Shook Patcher Name Role Phone Nikko Bird MD Unavailable Nikko Bird MD Primary Care Provider [phone], Mary DYE CAN OPERATOR Unavailable [phone], Mary DYE CAN OPERATOR Unavailable [phone] Lorraine Morgan RN Unavailable [phone] Elaine Saab DYE CAN OPERATOR Unavailable Encounter Details Date Type Department Care Team (Late st Contact Info) Description 06/26/2023 [facility] [place] [facility] 112 [facility] 110 [place] [address] Nikko Bird MD 112 [facility] 110 [place] [address] Social History Tobacco Use Types Packs/Day Years [...] on filedocumented in this encounter Care Teams Box Shook Patcher Relationship Specialty Start Date End Date Nikko Bird MD [address] [place] [address] PCP - [employer] 08/28/17 Nikko Bird MD [address] [facility] [address] [place] [address] PCP - General Family Medicine 03/09/23Monday, ISABELLA Hernandez [address] [place] [address] Licensed Practical Nurse Family Medicine 09/21/2309/21, ISABELLA Hernandez [address] [place] [address] Licensed Practical Nurse Family Medicine 06/21/24 Lorraine Morgan, RN [address] [place] [address] Licensed Practical Nurse Family Medicine 10/04/2411/15 Elaine Saab LPN [address] [facility] 110 [place] [address] 11/15/24 documented as of this encounter
--- OUTSIDE RECORDS SUMMARY | 2025-04-30 09:41 | XMS_ITS | Patient Health Record ---
Author Organization [facility] Address [address] [place] [address] Care Team Providers Care Community Development Aide Name Role Phone Nikko Bird MD Primary Care Provider Dashawn Mendoza Unavailable [phone] Allergies No Known Allergies Reason For Referral No Information Medications Medication SIG (Take, Route, Frequency, Duration) Notes Start Date End Date Status aspirin Active atorvastatin Active Xarelto Active Oxycodone and Acetaminophen Active losartan Active fluticasone nasal Ac tive metoprolol Active Social History Tobacco Use: Social History Observation Description Date Details (start date - stop date) Never Smoker NA - NA Smoking History Question Answer Notes Smoking Status NonSmoker Problems Problem Type SNOMED Code ICD Code Onset Dates Problem Status W/U Status Risk Notes Problem 349090163 Peripheral vascular disease (I73.9) Active confirmed Problem 080306855 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 Problem [id number] 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
--- OUTSIDE RECORDS SUMMARY | 2025-04-30 09:41 | XMS_ITS | Encounter Summary ---
Author Organization [facility] Address [address] [place] [address] Care Team Providers Care Operations Professional Name Role Phone Nikko Bird MD Unavailable Nikko Bird MD Primary Care Provider [phone], Mary COMMUNICATIONS MARKETING INTERN Unavailable [phone] Lorraine Morgan RN Unavailable [phone] Elaine Saab COMMUNICATIONS MARKETING INTERN Unavailable Encounter Details Date Type Department Care Team (Late st Contact Info) Description 05/14/2024 Abstract [facility] [place] [facility] [address] [facility] 110 [place] [phone] Nikko Bird MD 112 [facility] 110 [place] [address] Social History Tobacco Use Types Packs/Day Years [...] as of this encounter Care Teams Operations Professional Relationship Specialty Start Date End Date Nikko Bird MD [address] [facility] 110 [place] [address] PCP - [employer] 08/28/17 Nikko Bird MD [address] [facility] 110 [place] [address] PCP - General Family Medicine 03/09/23MondayMary LPN [address] [facility] 110 [place] [address] Licensed Practical Nurse Family Medicine 06/21/24 Lorraine Morgan, KULDEEP [address] [place], [place] [id number] Licensed Practical Nurse Family Medicine 10/04/2411/15 Elaine Saab LPN [address] [facility] 110 [place] [address] 11/15/24 documented as of this encounter
--- OUTSIDE RECORDS SUMMARY | 2025-04-30 09:41 | XMS_ITS | Encounter Summary ---
Author Organization [facility] Address [address] [place] [address] Care Team Providers Care Single End Sewer Name Role Phone Nikko Bird MD Unavailable Nikko Bird MD Primary Care Provider [phone] Elaine Saab LPN Unavailable Encounter Details Date Type Department Care Team (Late st Contact Info) Description 04/09/2025 Abstract [facility] [place] [facility] 112 [facility] 110 [place] [address] Nkiko Bird MD [address] [facility] 110 [place] [address] Social History Tobacco Use Types Packs/Day Years [...] Recorded Patient Health Questionnaire-2 Score 0 04/08/2025 [facility] - [...] any time in the past 12 m [facility], were you homeless or [...] documented as of this encounter Care Teams Single End Sewer Relationship Specialty Start Date End Date Nikko Bird MD [address] [address] PCP - [employer] 08/28/17 Nikko Bird MD [address] [facility] 110 [place] [address] PCP - General Family Medicine 03/09/23 Elaine Saab LPN [address] [address] 11/15/24 documented as of this encounter
--- OUTSIDE RECORDS SUMMARY | 2025-04-30 09:41 | XMS_ITS | Encounter Summary ---
Author Organization [facility] Address [address] [place] [address] Care Team Providers Care Environmental Epidemiologist Name Role Phone Nikko Bird MD Unavailable Nikko Bird MD Primary Care Provider [phone] Elaine Saab LPN Unavailable Encounter Details Date Type Department Care Team (Late st Contact Info) Description 03/17/2025 Abstract [facility] [place] [facility] 112 [facility] 110 [place] [address] Nikko Bird MD [address] [facility] 110 [place] [address] Social History Tobacco Use Types Packs/Day Years [...] Recorded Patient Health Questionnaire-2 Score 0 01/09/2025 [facility] - Occupational [...] any time in the past 12 m [facility], were you homeless or living [...] documented as of this encounter Care Teams Environmental Epidemiologist Relationship Specialty Start Date End Date Nikko Bird MD [address] [address] PCP - [employer] 08/28/17 Nikko Bird MD [address] [facility] 110 [place] [address] PCP - General Family Medicine 03/09/23 Elaine Saab LPN [address] [address] 11/15/24 documented as of this encounter
--- OUTSIDE RECORDS SUMMARY | 2025-04-30 09:41 | XMS_ITS | Encounter Summary ---
Author Organization [facility] Address [address] [place] [address] Care Team Providers Care Television Cabinet Finisher Name Role Phone Nikko Bidr MD Unavailable Nikko Bird MD Primary Care Provider [phone] Mary PLAYGROUND OFFICIAL Unavailable [phone], Mary PLAYGROUND OFFICIAL Unavailable [phone] Lorraine Morgan RN Unavailable [phone] Elaine Saab PLAYGROUND OFFICIAL Unavailable Encounter Details Date Type Department Care Team (Late st Contact Info) Description 08/14/2023 Abstract [facility] [place] [facility] 112 [facility] 110 [place] [address] Nikko Bird MD 112 [facility] 110 [place] [address] Social History Tobacco Use Types Packs/Day Years [...] on filedocumented in this encounter Care Teams Television Cabinet Finisher Relationship Specialty Start Date End Date Nikko Bird MD [address] [place] [address] PCP - [employer] 08/28/17 Nikko Bird MD [address] [place] [address] PCP - General Family Medicine 03/09/23Monday, ISABELLA Hernandez [address] [place] [address] Licensed Practical Nurse Family Medicine 09/21/2309/21, ISABELLA Hernandez [address] [place] [address] Licensed Practical Nurse Family Medicine 06/21/24 Lorraine Morgan, RN [address] [place] [address] Licensed Practical Nurse Family Medicine 10/04/2411/15 Elaine Saab LPN [address] [facility] 110 [place] [address] 11/15/24 documented as of this encounter
--- OUTSIDE RECORDS SUMMARY | 2025-04-30 09:41 | XMS_ITS | Clinical Summary ---
Author Organization [facility] Address [address], [address] [place] [address] Care Team Providers Care Rhia Name Role Phone Nikko Bird MD Primary Care Provider [phone] Allergies No known active allergies Medications aspirin [...] coronary artery 05/13/2024 Overview (05/13/2024): Dr. 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 No 05/13/2024 Food Insecurity Answer [...] - 199 mg/dL 05/14/2024 6:13 AM EDT [facility] Comment: Cholesterol Guidelines: <200 Desirable 200-240 Borderline >240 Undesirable HDL 41 >40 mg/dL 05/14/2024 6:13 AM EDT [facility] Comment: HDL Guidelines: <40 Undesirable 40-59 Borderline >59 Desirable LDL Cholesterol 73 0 - 100 mg/dL 05/14/2024 6:13 AM EDT [facility] Comment: LDL Guidelines: <100 Desirable 100-129 Near to/above Desirable 130-159 Borderline >159 Undesirable Direct (measured) LDL and calculated LDL are not interchangeable tests. Chol/HDL Ratio 3.0 05/14/2024 6:13 AM EDT [facility] Triglycerides 85 <150 mg/dL 05/14/2024 6:13 AM EDT [facility] Comment: Triglyceride Guidelines: <150 Desirable 150-199 Borderline 200-499 High >499 Very high Based on AHA Guidelines for fasting triglyceride, May 2012. VLDL 17 mg/dL 05/14/2024 6:13 AM EDT [facility] Blood BLOOD SPECIMEN / Unknown 05/14/2024 6:13 AM EDT 05/14/2024 6:29 AM EDT us Danica Bang CELLOPHANE WORKER - QUALITY CONTROL ANALYST CHEMISTRY ORDERABLES Fi nal Result [facility] [address] [place] [address], [facility] [phone] [facility] [address] [place] [address], [facility] [phone] from Last 3 Months or Most Recently Relevant to Health Maintenance Insurance MEDICARE MEDICARE MEDICARE Advance Directives * Full Code (Latest Code Status on File) Date Activated Date Inactivated Comments 05/13/2024 1:14 AM 05/14/2024 5:07 PM Healthcare Agents on File Name Relationship Healthcare Agent [facility] p Communication Mckenzie Gray Child Primary Decision Maker Care Teams Rhia Relationship Specialty Start Date End Date Nikko Bird MD PCP - General 08/15/13
--- OUTSIDE RECORDS SUMMARY | 2025-04-30 09:41 | XMS_ITS | Encounter Summary ---
Author Organization [facility] Address [address] [place] [address] Care Team Providers Care Casting Room Helper Name Role Phone Nikko Bird MD Unavailable Nikko Bird MD Primary Care Provider [phone], Mary HEARING AIDE TECHNICIAN Unavailable [phone] Lorraine Morgan RN Unavailable Elaine Saab HEARING AIDE TECHNICIAN Unavailable Encounter Details Date Type Department Care Team (Late st Contact Info) Description 05/22/2024 Abstract [facility] [place] [facility] 112 [facility] 110 [place] [id number] Nikko Bird MD 112 [facility] 110 [place] [address] Social History Tobacco Use Types Packs/Day Years [...] documented as of this encounter Care Teams Casting Room Helper Relationship Specialty Start Date End Date Nikko Bird MD [address] [facility] 110 [place] [address] PCP - [employer] 08/28/17 Nikko Bird MD [address] [facility] 110 [place] [address] PCP - General Family Medicine 03/09/23MondayMary LPN [address] [facility] 110 [place] [address] Licensed Practical Nurse Family Medicine 06/21/24 Lorraine Morgan, KULDEEP [address] [place], [place] [address] Licensed Practical Nurse Family Medicine 10/04/2411/15 Elaine Saab LPN [address] [facility] 110 [place] [address] 11/15/24 documented as of this encounter
--- OUTSIDE RECORDS SUMMARY | 2025-04-30 09:41 | XMS_ITS | Encounter Summary ---
Author Organization [facility] Address [address] [place] [address] Care Team Providers Care Academic Support Specialist Name Role Phone Nikko Bird MD Unavailable Nikko Bird MD Primary Care Provider [phone] Elaine Saab LPN Unavailable Encounter Details Date Type Department Care Team (Late st Contact Info) Description 03/12/2025 Abstract [facility] [place] [facility] [address] [facility] 110 [place] [address] Nikko Bird MD [address] [facility] 110 [place] [address] Social History Tobacco Use Types Packs/Day Years [...] Recorded Patient Health Questionnaire-2 Score 0 01/09/2025 [facility] of Occupat ional Health - [...] any time in the past 12 m [facility], were you homeless or living [...] documented as of this encounter Care Teams Academic Support Specialist Relationship Specialty Start Date End Date Nikko Bird MD [address] [address] PCP - [employer] 08/28/17 Nikko Bird MD [address] [facility] 110 [place] [address] PCP - General Family Medicine 03/09/23 Elaine Saab LPN [address] [address] 11/15/24 documented as of this encounter
--- OUTSIDE RECORDS SUMMARY | 2025-04-30 09:41 | XMS_ITS | Encounter Summary ---
Author Organization [facility] Address [address] [place] [address] Care Team Providers Care Meat Market Manager Name Role Phone Nikko Bird MD Unavailable Nikko Bird MD Primary Care Provider [phone], Mary WRIGHTN Unavailable [phone] Lorraine Morgan RN Unavailable [phone] Saab, Elaine FINANCIAL INSTITUTION BRANCH MANAGER Unavailable Encounter Details Date Type Department Care Team (Late st Contact Info) Description 07/10/2024 Abstract [facility] [place] [facility] 112 [facility] 110 [place] [address] Nikko Bird MD 112 [facility] 110 [place] [address] Social History Tobacco Use Types Packs/Day Years [...] Recorded Patient Health Questionnaire-2 Score 0 04/26/2024 [facility] of Occupat ional Health - Occupational [...] documented as of this encounter Care Teams Meat Market Manager Relationship Specialty Start Date End Date Nikko Bird MD [address] [place] [address] PCP - [employer] 08/28/17 Nikko Bird MD [address] 110 [place] [address] PCP - General Family Medicine 03/09/23MondayMary LPN [address] [place] [address] Licensed Practical Nurse Family Medicine 06/21/24 Lorraine Morgan, RN [address] [place] [address] Licensed Practical Nurse Family Medicine 10/04/2411/15 Elaine Saab LPN [address] [place] [address] 11/15/24 documented as of this encounter
--- OUTSIDE RECORDS SUMMARY | 2025-04-30 09:41 | XMS_ITS | Encounter Summary ---
Author Organization [facility] Address [address] [place] [address] Care Team Providers Care Road Tester Name Role Phone Nikko Bird MD Unavailable Nikko Bird MD Primary Care Provider [phone], Mary PEDIATRICS TEACHER Unavailable [phone] Lorraine Morgan RN Unavailable Elaine Saab PEDIATRICS TEACHER Unavailable Encounter Details Date Type Department Care Team (Late st Contact Info) Description 05/13/2024 Abstract [facility] [place] [facility] 112 [facility] 110 [place] [phone] Nikko Bird MD 112 [facility] 110 [place] [address] Social History Tobacco Use Types Packs/Day Years [...] documented as of this encounter Care Teams Road Tester Relationship Specialty Start Date End Date Nikko Bird MD [address] [email or web address] 110 [place] [address] PCP - [employer] 08/28/17 Nikko Bird MD [address] [email or web address] 110 [place] [address] PCP - General Family Medicine 03/09/23MondayMary LPN [address] [facility] 110 [place] [address] Licensed Practical Nurse Family Medicine 06/21/24 Lorraine Morgan, KULDEEP [address] [place], [place] [address] Licensed Practical Nurse Family Medicine 10/04/2411/15 Elaine Saab LPN [address] [facility] 110 [place] [address] 11/15/24 documented as of this encounter
--- OUTSIDE RECORDS SUMMARY | 2025-04-30 09:41 | XMS_ITS | Encounter Summary ---
Author Organization [facility] Address [address] [place] [address] Phone Care Team Providers Care Chemistry Department Chair Name Role Phone Unavailable Primary Care Provider Unavailabl e Encounter Details Date Type Department Care Team (Late st Contact Info) Description 10/17/2023 Scanned Document [facility] [address] [place] [id number] Scanning, Generic Provider Social History Tobacco Use [...]
--- OUTSIDE RECORDS SUMMARY | 2025-04-30 09:41 | XMS_ITS | Encounter Summary ---
Author Organization [facility] Address [address] [place] [address] Care Team Providers Care Silver Miner Name Role Phone Nikko Bird MD Unavailable Nikko Bird MD Primary Care Provider [phone] Elaine Saab LPN Unavailable Encounter Details Date Type Department Care Team (Late st Contact Info) Description 03/11/2025 Abstract [facility] [place] [facility] 112 [address] [facility] 110 [place] [address] Nikko Bird MD [address] [facility] 110 [place] [address] Social History Tobacco Use Types Packs/Day Years [...] Recorded Patient Health Questionnaire-2 Score 0 01/09/2025 [facility] of Occupat ional [...] documented as of this encounter Care Teams Silver Miner Relationship Specialty Start Date End Date Nikko Bird MD [address] [address] PCP - [employer] 08/28/17 Nikko Bird MD [address] [facility] 110 [place] [address] PCP - General Family Medicine 03/09/23 Elaine Saab LPN [address] [address] 11/15/24 documented as of this encounter
--- OUTSIDE RECORDS SUMMARY | 2025-04-30 11:03 | XMS_ITS | CCD ---
Author Organization [facility] Care Team Providers Care Top Lift Compresser Name Role Phone ELTAHAWY, EHAB A Unavailable Unavailable ELTAHAWY, EHAB A Unavailable Unavailable DAVON LOVELACEEN Unavailable Unavailable YANIRA PRESTON AM Unavailable Unavailable RIEGO, FILMORE A. Unavailable Unavailable MONIQUEEGO, FILMORE A. Unavailable Unavailable Flash Lovelace Primary Care Provider [phone] FLYNN MANN Attending Unavailabl e FLYNN MANN Referring Unavailabl e FLASH LOVELACE Primary Care Unavailable FLYNN MANN Admitting Unavailabl e [facility] Consulting Monisha MURO, SANTOSH YOUSIF Consulting Unavailable ISAIAS VOGT Attending Unavailable ISAIAS VOGT Referring Unavailable ISAIAS VOGT Attending Unavailable ISAIAS VOGT Referring Unavailable SHAYY WAY Attending Unavailable DUKE SANTOS Attending Unavailable DUKE SANTOS Referring Unavailable ANALIA FOX Attending Unavailable Flash Lovelace Primary Care Provider Flash Lovelace MD Primary Care Provider Flash Lovelace MD Primary Care Provider ILEANA KANG Attending Unavailable FLASH LOVELACE Primary Care Unavailable Flash Lovelace MD Primary Care Provider [phone] Cristian Beaver Unavailable MD Flash Lovelace Primary Care Provider MD Cristian Beaver Attending Provider WAGNER MOON Referring Unavaila WAGNER Vogt Attending Unavaila FLASH Newton Primary Care Unavailable Flash Lovelace MD Primary Care Provider [phone] Flash Lovelace MD Primary Care Provider [phone] FLASH LOVELACE Primary Care Unavailable Dalila Arreguin Attending Unavailable FLASH LOVELACE Primary Care Physician Haven Malcolm Unavailable [place], DR VIDALES Primary [...] Unavailable UnavailMD Flash Gutiérrez Primary Care Provider BERTA Malcolm Attending Provider MD Cristian Beaver Attending Provider Flash Lovelace MD Primary Care Provider SCAR ORTEGA Referring Unavailable FLASH LOVELACE [facility] Care Unavailable SCAR ORTEGA Attending Unavailable FLASH LOVELACE [facility] Unavailable SELF, SELF Referring Unavailable SCAR ORTEGA Attending Unavailable MD Flash Lovelace Primary Care Provider MD Cristian Beaver Attending Provider MD Eliezer Carvalho V Attending Provider MD Duke Dunbar Referring Provider BRENNA MOSQUERA Attending Unavailable FLASH LOVELACE Primary Care Unavailable GISEL MANN Admitting Unavailable FLACO HARPER Consulting Unavailable JUAN EARL Attending Unavailable Flash Lovelace MD Unavailable Flash Lovelace MD Primary Care Provider [phone] Monday INSTRUCTOR DANCING, Mary Unavailable Flash Lovelace MD Primary Care Provider Lorraine Morgan RN Unavailable Saab INSTRUCTOR DANCING, Elaine Unavailable Unavailable MODAJA, ELIEZER Admitting Unavailable ELIEZER CARVALHO Attending Unavailable RUSSEL VALLEJO Attending Unavailable DEVEN, ELIEZER Attending Unavailable ELIEZER CARVALHO Attending Unavailable RUSSEL VALLEJO Attending Unavailable Saab INSTRUCTOR DANCING, Elaine Unavailable Flash Lovelace MD Primary Care Provider [phone] Cristian Beaver MD Attending Provider [phone] Cristian Beaver Admitting Unavailable Crsitian Beaver Attending Unavailable [place], Rugen M Primary Care Unavailable Cristian Beaver Admitting Unavailable Cristian Beaver Attending Unavailable [place], Rugen M Primary Care Unavailable Cristian Beaver Attending Unavailable [place], Rugen M Primary Care Unavailable Cristian Beaver Admitting Unavailable [place], RUGEN M Attending Unavailable BHASKAR WILSON Attending Unavailable ALBANIAFLASH Attending Unavailable ZOË KING Attending Unavailable ALBANIAFLASH M Attending Unavailable [place], RUGEN M Referring Unavailable HEMZOË BERNARD Attending Unavailable HEMZOË BERNARD Attending Unavailable [place] RUGSELAM Arteaga Attending Unavailable [place], RUGEN M Primary Care Unavailable MOHSEN SARABIA Attending Unavailable WALKERMOHSEN Referring Unavailable WALKERMOHSEN Attending Unavailable [place], RUGEN M Primary Care Unavailable WALKERMOHSEN Referring Unavailable [place], RUGEN M Primary Care Unavailable WALKERMOHSEN Attending Unavailable WALKERMOHSEN Referring Unavailable [place], RUGEN M Primary Care Unavailable MOHSEN SARABIA Attending Unavailable MOHSEN SARABIA Referring Unavailable MUNA OTTO Admitting Unavail able [place], RUGEN M Primary Care Unavailable URI VOSS Attending Unavailable MOHSEN SARABIA Consulting Unavailable MOHSEN SARABIA Referring Unavailable WALKERMOHSEN Admitting Unavailable [place], RUGEN M Primary Care Unavailable KEN JOHNSON Attending Unavailable MOHSEN SARABIA Attending Unavailable FLASH LOVELACE Primary Care Unavailable MOHSEN SARABIA Attending Unavailable FLASH LOVELACE Primary Care Unavailable MOHSEN SARABIA Attending Unavailable FLASH LOVELACE Primary Care Unavailable Allergies Allergy Classification Reported Allergen(s) Allergy Type Date of Onset Reaction(s) Facility Doxycycline (2 sources) Doxycycline Drug Allergy 9 [facility] (1 source) 11557,00; Translations: [37514,00] Propensity to adverse reactions (disorder) 9 [facility] (11 sources) oxyCODONE; Translations: [oxycodone] Drug Allergy 7 Anaphylaxis, Anaphylaxis (disorder) [facility] (20 sources) Doxycycline; Translations: [DOXYCYCLINE] Drug Allergy 9 Unknown [facility] (20 sources) gabapentin; Translations: [GABAPENTIN] Drug Allergy 5 GI Intolerance [facility] Medications Current Medications Medication Drug [...] 6 hours scheduled (RT), First dose on [facility] 11/03/22 at 2230 Start: 11-03-2022 End: 11-08-2022 take 3 mL by inhalation every four hours as needed 3 mL, Inhalation, Every 4 hours PRN (RT), shortness of breath, Starting on [facility] 11/03/22 at 2228 Start: 11-03-2022 End: 03-14-2025 [...] amLODIPine (NORVASC) 5 MG ta blet amoxicillin 500 mg / clavulanate 125 mg oral tablet (13 sources) Penicillin-class Antibacterial Start: 04-16-2025 amoxicillin-clavulanate (AUGMENTIN) 500-125 mg per tablet 04/16/2025 Active Start: 04-10-2025 End: 04-17-2025 take 1 tablet [...] 2100 Start: 05-10-2017 take 2 tablets by mo [facility] once daily Atorvastatin 20 mg Tablet Active [...] tab . Active take 1 tablet by [facility] twice daily, then take 0.5 tablet by mouth twice daily atorvastatin 40 MG Tab tablet Take 1 tablet by mouth 2 times daily. Takes 1/2 tab bid 0 Active azithromycin 250 mg oral tablet (3 sources) Macrolide Antimicrobial Start: 04-29-2025 End: 05-04-2025 take 2 tablets by mouth once daily, then take 1 tablet by mouth once daily azithromycin (Zithromax) 250 MG tablet Indications: Acute non-recurrent sinusitis, unspecified location Take 2 tablets (500 mg) by mouth Daily for 1 day, THEN 1 tablet (250 mg) Daily for 4 days. 6 tablet 04/29/2025 05/04/2025 Active Start: 06-17-2024 End: 06-22-2024 take 1 tablet [...] 5 days. 5 tablet 01/09/2025 01/14/2025 Active collagenase 0.25 unt/mg topical ointment (1 source) Collagen-specific Enzyme Start: 04-21-2025 SantyL ointment 04/21/2025 Active docusate sodium 100 mg oral capsule [...] End: 05-21-2024 ergocalciferol (Vitamin D-2) 1.25 MG (74197 UT) capsule Take 50,000 Units by mouth [...] / zinc oxide 0.206 mg/mg topical ointment (14 sources) Start: 06-27-2023 Calmoseptine 0 .44-20.6 % [...] sources) beta-Adrenergic María Start: 06-20-2024 End: 06-20-2025 metoprolol tartrate (Lopressor) 50 MG tablet Indications: Benign essential hypertension TAKE 1 TABLET IN THE MORNING AND 1 TABLET BEFORE BEDTIME. 180 tablet 3 04/29/2025 Active Start: 01-19-2022 End: 01-21-2022 take 50 [...] 03/31/2025 Discontinued (Other) naloxone (NARCAN) 4 mg/actuation [place] (4 sources) Start: 03-21-2025 naloxone (NARC AN) 4 mg/actuation [place] Administer 1 spray into one nostril for known or suspected opioid overdose. If patient worsens or does not respond, may repeat in 2-3 minutes. . 2 each 03/21/2025 Active Start: 03-21-2025 naloxone (NARC AN) 4 mg/actuation [place] Administer 1 spray into one nostril for [...] For 3 doses Anginal pain, may repeat [id number] x3, then notify physician. DO NOT CRUSH [...] 11:00pm Start: 04-25-2022 take 1 capsule by [facility] once daily Omeprazole (Prilosec) 40 mg Capsule,Delayed Release(Dr/Ec) Active 40 MG PO Daily April 25, 2022 12:00am Start: 11-27-2019 omeprazole (Pr iLOSEC) [address] capsule Indications: Heartburn TAKE 1 CAPSULE EVERY DAY 90 capsule 3 01/15/2025 Active ondansetron 4 mg oral tablet (20 sources) Serotonin-3 Receptor Antagonist Start: 04-21-2025 End: 04-28-2025 ondansetron (ZOFRAN) 4 MG tablet 04/21/2025 Active Start: 03-25-2025 End: 04-01-2025 take 1 tablet [...] tablet 0 09/13/2018 03/13/2019 Discontinued (Therapy completed) polyethylene glycol 3350 29116 mg powder for oral solution (20 sources) Osmotic Laxative Start: 09-04-2011 End: 03-21-2025 polyethylene glycol (MIRALAX) 17 gram powder Take 17 (seventeen) g by mouth daily . 09/04/2011 Active Start: 09-04-2011 take 1 dose by mouth twice daily polyethylene glycol PO PACK take 1 Packet by mouth 2 times daily. 60 Packet 5 09/04/2011 Active povidone-iodine 100 mg/ml topical solution (2 sources) [...] DAILY 180 tablet 3 04/09/2025 Active Start: 07-03-2019 Xarelto Start Date: 07/03/19 [...] by mouth . 0 01/19/2022 Discontinued sennosides, custodial 8.6 mg oral tablet (9 sources) Start: 09-04-2011 End: 01-21-2022 take 1 tablet by mouth once daily senna 8.6 MG PO TABS take 1 Tab by mouth daily. 30 Tab 5 09/04/2011 Active sulfamethoxazole 400 mg / trimethoprim 80 mg oral tablet (16 sources) Dihydrofolate Reductase Inhibitor Antibacterial, Sulfonamide Antimicrobial Start: 04-16-2025 sulfamethoxazole -trimethoprim (BACTRIM,SEPTRA) 400-80 mg per tablet 04/16/2025 Active Start: 04-08-2025 End: 04-15-2025 take 1 tablet by mouth once in the morning, then take 1 tablet by mouth once at bedtime sulfamethoxazole-trimethoprim (Bactrim D S) 800-160 MG per tablet Indications: Ischemic toe [...] fever 100.4 F or greater, headaches, Starting Mon09/05/18 at 1603 [id number] 200 actuat albuter ol 0.09 mg/actuat metered [...] Analog, Prostaglandin E1 Agonist End: 08-09-2023 alprostadiL (Matthews) 500 mcg pellet aluminum hydroxide 40 mg/ml [...] 0900 Start: 11-27-2019 take 1 capsule by mo uth once daily aspirin 81 mg cap Take [...] rhythms with symptoms of hemodynamic compromise, Starting 09/05/18 at 1603 [] NOTIFY PHYSICIAN, and request [...] mL 3 11/04/2024 Active Start: 05-21-2024 End: 08-26-2024 take 1 spray(s) nasal route in the [...] (TESSALON) capsule 100 mg Start: 10-30-2022 End: 03-14-2023 benzonatate (TESSALON) capsu le 100 mg End: [...] at 1702, For 1 dose, HERRERA BACK: paulie override Start: 09-05-2018 End: 10-25-2018 take 1 [...] (1 source) Muscle Relaxant Start: 03-17-2025 End: 07-24-2025 take 10 mg by mouth every eight hours 10 mg, Oral, Every 8 hours scheduled, First dose on Mon03/17/25 at 2200 dexamethasone 1 mg/ml / neomycin 3.5 mg/ml / polymyxin b 62256 unt/ml ophthalmic suspension (1 source) Aminoglycoside Antibacterial, Polymyxin-class Antibacterial, Corticosteroid End: 08-09-2023 neomycin-polymyxi n-dexamethasone (MAXITROL) 3.5mg/mL-10,000 unit/mL-0.1 % ophthalmic suspension docusate sodium 50 mg / sennosides, custodial 8.6 mg oral tablet (13 sources) Start: [...] 40 mg, Subcutaneous, Daily, First dose on Mon03/15/25 at 0800, Administer in abdomen unless otherwise [...] min PRN, moderate to severe pain, Starting 09/07/18 at 1507, For 4 doses, PACU (only) 30 actuat fluticasone furoate 0.1 mg/actuat / umeclidinium 0.0625 mg/actuat / vilanterol 0.025 mg/actuat dry powder inhaler (5 sources) Anticholinergic, Corticosteroid, beta2-Adrenergic Agonist Start: 10-27-2022 End: 08-09-2023 hsmhzlznotx-wwimirpym-uhnqwb er (Trelegy Ellipta) 100-62.5-25 mcg DsDv 1 puff every night at bedtime . 0 10/27/2022 08/09/2023 Discontinued (Discontinued by another clinician) furosemide 20 mg oral tablet (20 sources) Loop Diuretic Start: 03-15-2025 End: 03-21-2025 take 20 mg by mouth every other day 20 mg, Oral, Every other day, First dose on 03/15/25 at 0900 Start: 10-14-2024 furosemide (La six) [...] 0200 Start: 10-05-2021 take 1 capsule by [facility] three times daily gabapentin 300 mg Cap [...] (eight) hours (Days supply per fill: {DAYS SUPPLY:33049}) . 0 Active 250 ml heparin sodium, [...] NaCl (DILAUDID) 15 mg/30 mL (0.5 mg/mL) CLAY GRINDER (1 source) Start: 09-06-2018 End: 09-07-2018 HYDROmorphone in 0.9 % NaCl (DILAUDID) 15 mg/30 mL (0.5 mg/mL) CLAY GRINDER iopamidoL (ISOVUE-370) 370 m g iodine /mL [...] ction 40 mg perflutren lipid microsphere s (DEFINITY) 0.143 mg/mL solution 0-10 mL of mixture (2 sources) Start: 11-06-2022 End: 11-06-2022 perflutren lipid microsphere s (DEFINITY) 0.143 mg/mL solution 0-10 mL of mixture Start: 10-08-2018 End: 10-08-2018 perflutren lipid microsphere s (DEFINITY) 0.143 mg/mL solution 0-10 mL of mixture polyvinyl alcohol 0.014 ml/ml ophthalmic solution (1 [...] End: 03-21-2025 1 spray, Each Nare, As neede d, irritation, Starting on Mon03/14/25 at 2025, Upright delivers a spray; Horizontally a stream; [...] every hour 125 mL/hr, Intravenous, Continuous, Starting Mon09/05/18 at 1700, For 3 hours Start: 09-05-2018 [...] Onset: 9 Episodic Chronic ulcer of skin (16 sources) Ulcer of toe; Translations: [Ischemic ulcer [...] Coronary atherosclerosis; Translations: [Atherosclerotic heart disease of eyak coronary artery without angina pectoris] Onset: 8 [...] caused by tuberculosis or sexually transmitted disease) (11 sources) Osteomyelitis of right foot; Translations: [Osteomyelitis, [...] system disorders (20 sources) 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; Translations: [...] pollen] 08-12-2024 Chronic Other upper respiratory infections (2 sources) Upper respiratory infection; Translations: [Acute upper respiratory infection, unspecified] 06-17-2024 Episodic Peripheral and visceral atherosclerosis (20 sources) Peripheral vascular disease; Translations: [Atherosclerosis of eyak arteries of the extremities] Onset: 8 Resolved: 2 Chronic Peripheral and visceral atherosclerosis (1 source) 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; Translations: [Atherosclerosis of eyak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 leg with ulceration of [...] of the ascending aorta, without rupture] Onset: Unclassified (2 sources) call to schedule follow [...] 11-07-2022 11-30-2022 Episodic Other connective tissue disease (10 sources) Pain in lower limb; Translations: [Pain [...] unspecified organism; Translations: [Community acquired pneumonia] Onset: 10-30-2022 Resolved: 04-26-2024 Episodic Residual codes; unclassified (2 [...] Test Name Value Interpretation Reference Range Facility US ANKLE/BRACHIAL INDICES EX TREMITY LIMITEDon 04-23-2025 US ANKLE/BRACHIAL INDICES EXTREMITY LIMITED Patient Info Name: Tristin Powell Age: 85 years : 1940 Gender: Male Exam Date: 04/23/2025 12:53 PM Patient Status: OUTPATIENT Site Location: [facility] Indications I73.9 - Peripheral vascular disease, unspecified I70.229 - 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, unspecified extremity Procedure Description 93082 Limited bilateral noninvasive physiologic studies of upper or lower extremity arteries with bidirectional Doppler/PVR waveform analysis at 1-2 levels. Binder Technician: Ying Fiore RDCS, RVT Staff Ordering Physician: Mohsen Sarabia MD, RPVI Conclusions * Right. * Right [...] Segmental BP RIGHT Brachial A mmH RIGHT NEWS CONTENT SPECIALIST mmH RIGHT NEWS CONTENT SPECIALIST Index: 0.96 RIGHT DPA mm[facility] RIGHT DPA Index: 0.92 RIGHT YAMILE Index: 0.96 LEFT Brachial A mm[facility] LEFT NEWS CONTENT SPECIALIST Index: 0.48 LEFT NEWS CONTENT SPECIALIST mmH LEFT DPA Index: 0.61 LEFT DPA mmH LEFT YAMILE Index: 0.61 Doppler RIGHT NEWS CONTENT SPECIALIST Waveform: Multiphasic RIGHT DPA Waveform: Multiphasic LEFT NEWS CONTENT SPECIALIST Waveform: Monophasic LEFT DPA Waveform: Monophasic , PVR RIGHT Ankle Grade: Abnormal RIGHT Transmetarsal Grade: Abnormal LEFT Ankle Grade: Abnormal Report Signatures Finalized by Nemo Conner MD, PHD, RVT on 04/23/2025 02:41 PM Normal [facility] DUPLEX LE BYPASS GRAFT CO MPL BILATon 04-23-2025 DUPLEX LE BYPASS GRAFT COMPL BILAT Patient Info Name: Tristin Powell Age: 85 years : 1940 Gender: Male Exam Date: 04/23/2025 12:53 PM Patient Status: OP SERIES Site Location: [facility] Indications I73.9 - Peripheral vascular disease, unspecified I70.229 - 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, unspecified extremity Procedure Description 09141 Duplex scan of lower extremity arteries or arterial bypass grafts using B-mode, color and spectral Doppler; unilateral or limited study. Binder Technician: Jigna Vera RDMS, RVT Staff Ordering Physician: Mohsen Sarabia MD, RPVI Conclusions * Right. * Less [...] Artery Segment: Gabriela LEFT Inflow Artery Segment: INSPECTOR MOTOR VEHICLES LEFT Inflow Artery PSV: 126 LEFT Inflow [...] MD, RPVI, RVT on 04/23/2025 02:41 PM [facility] XR FOOT RT MIN 3Von 04-16-20 [place] [address] XRay Report Signed Patient: TRISTIN POWELL MR#: [id number] : 1940 Acct:[id number] Age/Sex: 85 / M ADM Date: 04/15/25 Loc: RAD Attending Dr: Savanna Feliz D.P.M. Ordering Physician: Savanna Feliz D.P.M. Date of Service: 04/15/25 Procedure(s): XR foot RT min 3V Accession Number(s): [id number] cc: FLASH LOVELACE ; Savanna Feliz D.P.M. [place] [address] Patient Name: TRISTIN POWELL MRN: [id number] date: 1940 Sex: M Assigned Patient Location: [facility] Current Patient Location: Accession/Order Number: [id number] Exam Date: 04/16/2025 12:46 Report Date: 04/16/2025 [...] Rodriguez M.D. 04/16/2025 12:49 PM Dictation Location: [place] [address] Electronically authenticated by: [id number] Y Date: 04/16/2025 12:49 Dictated By: Cristian Rodriguez D.O. Signed By: 04/16/25 1252 DD/ 1249 TD/TT: Inspector Radar [employer] Electronics: [facility] Radiology, Radiologist, - 04/16/2025 [place] [address] XRay Report Signed Patient: TRISTIN POWELL MR#: [id number] : 1940 Acct:[id number] Age/Sex: 85 / M ADM Date: 04/15/25 Loc: RAD Attending Dr: Savanna Feliz D.P.M. Ordering Physician: Savanna Feliz D.P.M. Date of Service: 04/15/25 Procedure(s): XR foot RT min 3V Accession Number(s): [id number] cc: FLASH LOVELACE ; Savanna Feliz D.P.M. The [place] [address] Patient Name: TRISTIN POWELL MRN: [facility]:[id number] date: 1940 Sex: M Assigned Patient Location: [facility] Current Patient Location: Accession/Order Number: [id number] Exam Date: 04/16/2025 12:46 Report Date: 04/16/2025 [...] Rodriguez M.D. 04/16/2025 12:49 PM Dictation Location: [facility] Electronically authenticated by: [id number] Y Date: 04/16/2025 12:49 Dictated By: Cristian Rodriguez D.O. Signed By: 04/16/25 1251 DD/ 1244 TD/TT: Inspector Radar [employer]: [facility] Radiology Study observation (narrative) [facility] XR FOOT RT MIN 3VOrdered By: Radiologist Radiology on 04-16-2025 [facility] Work Phone: ALL CBC WITH AUTO DIFFon BASOPHILS ABSOLUTE AUTO 0 [facility] Basophils/100 WBC (Bld) 0.6 % 0.2 - 2.0 % [facility] Eosinophils/100 WBC (Bld) 5.9 % 0.9 - 7.0 % [facility] Erythrocyte distribution width (RBC) [Ratio] 15.2 % High 11.0 - 15.0 % [facility] Hematocrit (Bld) [Volume fraction] 35.1 % Low 42.0 - 54.0 % [facility] Hemoglobin (Bld) [Mass/Vol] 11.8 g/dL Low 14.0 - 18.0 g/dL [facility] IMMATURE GRANULOCYTES ABS AUTO 0.02 [facility] Immature granulocytes/100 WBC (Bld) 0.6 % High 0.0 - 0.5 % [facility] Interpretation and review of laboratory results Abnormal [facility] LYMPHOCYTES ABSOLUTE AUTO 0.8 Low [facility] Lymphocytes/100 WBC (Bld) 24.1 % 20.5 - 60.0 % [facility] MCH (RBC) [Entitic mass] 31.2 pg 25.9 - 34.0 pg [facility] MCHC (RBC) [Mass/Vol] 33.6 g/dL 29.9 - 35.2 g/dL [facility] MCV (RBC) [Entitic vol] 92.9 fL 80.0 - 94.0 fL [facility] MONOCYTES ABSOLUTE AUTO 0.6 [facility] Monocytes/100 WBC (Bld) 18.9 % High 1.7 - 12.0 % [facility] NEUTROPHILS ABSOLUTE AUTO 1.6 [facility] Neutrophils/100 WBC (Bld) 49.9 % 43.0 - 75.0 % [facility] Platelet mean volume (Bld) [Entitic vol] 8.9 fL Low 9.5 - 13.5 fL [facility]H EO # 0.2 [facility] [address] [facility] RBC 3.78 Low [facility] WBC 3.2 Low [facility] MR FOOT RIGHT WO IV CONTRAST on [...] 1on HERPES SIMPLEX VIRUS 1 0 NO [facility] HERPES SIMPLEX VIRUS 1 Not detected [facility] HERPES SIMPLEX VIRUS 2 0 NO [facility] HERPES SIMPLEX VIRUS 2 Not detected [facility] HUMAN MONKEYPOX VIRUS 0 [facility] HUMAN MONKEYPOX VIRUS Not detected N [facility] VARICELLA ZOSTER VIRUS (HUMAN HERPESVIRUS 3) 0 [facility] VARICELLA ZOSTER VIRUS (HUMAN HERPESVIRUS 3) Not detected [facility] BASIC METABOLIC PANELon 02-26 Anion gap [Moles/Vol] 14 mmol/L Normal 10-20 [facility] Comment on above: Order Comment: [facility] has implemented the eGFR calculation approach that does not have a coefficient for race that conforms to the NKF-ASN Task Force Recommendations. Performed By: #### [id number] ####[facility] [address] [place] [address] Emmanuel Plata M.D. [id number] Calcium [Mass/Vol] 9.4 mg/dL Normal 8.4-10.2 [facility] Comment on above: Order Comment: [facility] has implemented the eGFR calculation approach that does not have a coefficient for race that conforms to the NKF-ASN Task Force Recommendations. Performed By: #### 4 [id number] ####[facility] [address] [place] [address] Emmanuel Plata M.D. [id number] Chloride [Moles/Vol] 108 mmol/L Normal 98-108 [facility] Comment on above: Order Comment: [facility] has implemented the eGFR calculation approach that does not have a coefficient for race that conforms to the NKF-ASN Task Force Recommendations. Performed By: #### 4 [id number] ####[facility] [address] [place] [address] Emmanuel Plata M.D. [id number] Creatinine [Mass/Vol] 0.98 mg/dL Normal 0.80-1.30 [facility] Comment on above: Order Comment: [facility] has implemented the eGFR calculation approach that does not have a coefficient for race that conforms to the NKF-ASN Task Force Recommendations. Performed By: #### [id number] ####[facility] [address] [place] [address] Emmanuel Plata M.D. [id number] EGFR 75 mL/min/1.73 m2 Normal >=60 [facility] Comment on above: Order Comment: [facility] has implemented the eGFR calculation approach that does not have a coefficient for race that conforms to the NKF-ASN Task Force Recommendations. Result Comment: Maria Del Carmen mated GFR was calculated using the 2020 CKD-EPI creatinine equation. Performed By: #### [id number] ####[facility] [address] [place] [address] Emmanuel Plata M.D. [id number] Glucose [Mass/Vol] 109 mg/dL High 65-99 [facility] Comment on above: Order Comment: [facility] has implemented the eGFR calculation approach that does not have a coefficient for race that conforms to the NKF-ASN Task Force Recommendations. Performed By: #### 4 [id number] ####[facility] [address] [place] [address] Emmanuel Plata M.D. [id number] HCO3 (Bld) [Moles/Vol] 22 mmol/L Normal 21-32 [facility] Comment on above: Order Comment: [facility] has implemented the eGFR calculation approach that does not have a coefficient for race that conforms to the NKF-ASN Task Force Recommendations. Performed By: #### 4 [id number] ####[facility] [address] [place] [address] Emmanuel Plata M.D. [id number] Potassium [Moles/Vol] 4.0 mmol/L Normal 3.5-5.1 [facility] Comment on above: Order Comment: [facility] has implemented the eGFR calculation approach that does not have a coefficient for race that conforms to the NKF-ASN Task Force Recommendations. Result Comment: Slig htly Hemolyzed Performed By: #### 4 [id number] ####[facility] [address] [place], [place] [id number] Emmanuel Plata M.D. [id number] Sodium [Moles/Vol] 140 mmol/L Normal 135-145 [facility] Comment on above: Order Comment: [facility] has implemented the eGFR calculation approach that does not have a coefficient for race that conforms to the NKF-ASN Task Force Recommendations. Performed By: #### 4 [id number] ####[facility] [address] [place] [address] Emmanuel Plata M.D. [id number] Urea nitrogen [Mass/Vol] 19 mg/dL Normal 8-25 [facility] Comment on above: Order Comment: [facility] has implemented the eGFR calculation approach that does not have a coefficient for race that conforms to the NKF-ASN Task Force Recommendations. Performed By: #### 4 [id number] ####[facility] [place], [place] [address] Emmanuel Plata M.D. [id number] Urea nitrogen/Creatinine [Mass ratio] 19.4 mg/mg Normal 10.0-20.0 [facility] Comment on above: Order Comment: [facility] has implemented the eGFR calculation approach that does not have a coefficient for race that conforms to the NKF-ASN Task Force Recommendations. Performed By: #### 4 [id number] ####[facility] [place], [place] [address] Emmanuel Plata M.D. [id number] Basic metabolic 2000 panelOr dered By: Beka Aiken on 03-21-2025 Anion gap [Moles/Vol] 14 mmol/L 10 - 2 0 mmol/L [facility] Calcium [Mass/Vol] 9.4 mg/dL 8.4 - 10. 2 mg/dL [facility] Chloride [Moles/Vol] 108 mmol/L 98 - 10 8 mmol/L [facility] Creatinine [Mass/Vol] 0.98 mg/dL 0.80 - 1.30 mg/dL [facility] GFR/1.73 sq M.predicted CKD-EPI (S/P/Bld) [Vol rate/Area] 75 - PINF [facility] Comment on above: Estimated GFR was ca lculated using the 2020 CKD-EPI creatinine equation. Glucose [Mass/Vol] 109 mg/dL High 65 - 99 mg/dL [facility] HCO3 [Moles/Vol] 22 mmol/L 21 - 32 mmol/L [facility] Interpretation and review of laboratory results Abnormal [facility] Potassium [Moles/Vol] 4 mmol/L 3.5 - 5.1 mmol/L [facility] Comment on above: Slightly Hemolyzed Sodium [Moles/Vol] 140 mmol/L 135 - 145 mmol/L [facility] Urea nitrogen [Mass/Vol] 19 mg/dL 8 - 25 mg/dL [facility] Urea nitrogen/Creatinine [Mass ratio] 19.4 mg/mg 10.0 - 20.0 [facility] has implemented the eGFR calculation approach that does not have a coefficient for race that conforms to the NKF-ASN Task Force Recommendations. [facility] CBCon 03-21-2025 AUTO NRBC 0.0 % Normal [facility] Comment on above: Performed By: #### 4 [id number] #### [facility] [address] [place], [place] [id number] Emmanuel Plata M.D. [id number] AUTO NRBC ABS COUNT 0.00 K/mcL Normal 0.00-0.00 [facility] Comment on above: Performed By: #### 4 [id number] #### [facility] [address] [place] [address] Emmanuel Plata M.D. [id number] Erythrocyte distribution width (RBC) [Ratio] 13.7 % Normal 11.6-14.8 [facility] Comment on above: Performed By: #### 4 [id number] #### [facility] [address] [place] [address] Emmanuel Plata M.D. [id number] Hematocrit (Bld) [Volume fraction] 30.0 % Low 41.0-53.0 [facility] Comment on above: Performed By: #### 4 [id number] #### [facility] [address] [place], [place] [id number] Emmanuel Plata M.D. [id number] Hemoglobin (Bld) [Mass/Vol] 10.5 g/dL Low 13.5-17.5 [facility] Comment on above: Performed By: #### 4 [id number] #### [facility] [address] [place], [place] [id number] Emmanuel Plata M.D. [id number] MCH (RBC) [Entitic mass] 33.2 pg Normal 26.0-34.0 [facility] Comment on above: Performed By: #### 4 [id number] #### [facility] [address] [place] [address] Emmanuel Plata M.D. [id number] MCV (RBC) [Entitic vol] 94.9 fL Normal 80.0-100.0 [facility] Comment on above: Performed By: #### 4 [id number] #### [facility] [address] [place], [place] [id number] Emmanuel Plata M.D. [id number] MEAN CORPUSCULAR HEMOGLOBIN CONC 35.0 g/dL Normal 31.0-37.0 [facility] Comment on above: Performed By: #### 4 [id number] #### [facility] [address] [place] [address] Emmanuel Plata M.D. [id number] Platelet mean volume (Bld) [Entitic vol] 9.7 fL Normal 9.4-12.4 [facility] Comment on above: Performed By: #### 4 [id number] #### [facility] [address] [place], [place] [id number] Emmanuel Plata M.D. [id number] Platelets (Bld) [#/Vol] 213 10*3/uL Normal 150-400 [facility] Comment on above: Performed By: #### 4 [id number] #### [facility] [address] [place], [place] [id number] Emmanuel Plata M.D. [id number] RBC (Bld) [#/Vol] 3.16 10*6/uL Low 4.50-5.90 [facility] Comment on above: Performed By: #### 4 [id number] #### [facility] [address] [place], [place] [id number] Emmanuel Plata M.D. [id number] WBC (Bld) [#/Vol] 4.33 10*3/uL Low 4.50-11.00 [facility] Comment on above: Performed By: #### 4 [id number] #### [facility] [address] [place], [place] [id number] Emmanuel Plata M.D. [id number] CBC panel Auto (Bld)on 03-21 Erythrocyte distribution width (RBC) [Entitic vol] 13.7 % 11.6 - 14.8 % [facility] Hematocrit (Bld) [Volume fraction] 30 % Low 41.0 - 53.0 % [facility] Hemoglobin (Bld) [Mass/Vol] 10.5 g/dL Low 13.5 - 17.5 g/dL [facility] Interpretation and review of laboratory results Abnormal [facility] MCH (RBC) [Entitic mass] 33.2 pg 26.0 - 34.0 pg [facility] MCHC (RBC) [Mass/Vol] 35 g/dL 31.0 - 37.0 g/dL [facility] MCV (RBC) [Entitic vol] 94.9 fL 80.0 - 100.0 fL [facility] Nucleated RBC (Bld) [#/Vol] 0 10*3/uL [facility] Nucleated RBC/100 WBC (Bld) [Ratio] 0 % [facility] Platelet mean volume (Bld) [Entitic vol] 9.7 fL 9.4 - 12.4 fL [facility] Platelets (Bld) [#/Vol] 213 10*3/uL [facility] RBC (Bld) [#/Vol] 3.16 10*6/uL Low [facility] (Bld) [#/Vol] 4.33 10*3/uL Low [facility] eah [facility] MAGNESIUM LEVELon 03-21-2025 Magnesium [Mass/Vol] 2.1 mg/dL Normal 1.6-2.4 [facility] Comment on above: Performed By: #### 4 [id number] #### [facility] [address] [place] [address] Emmanuel Plata M.D. [id number] Magnesiumon 03-21-2025 Magnesium [Mass/Vol] 2.1 mg/dL 1.6 - 2 .4 mg/dL [facility] Magnesium [Mass/Vol]on 03-21 Interpretation and review of laboratory results Normal [facility] No Panel Informationon 03-21 [facility] BASIC METABOLIC PANELon 02-26 Anion gap [Moles/Vol] 14 mmol/L Normal 10-20 [facility] Comment on above: Order Comment: [facility] has implemented the eGFR calculation approach that does not have a coefficient for race that conforms to the NKF-ASN Task Force Recommendations. Performed By: #### 4 [id number] #### [facility] [address] [place] [address] Emmanuel Plata M.D. [id number] Calcium [Mass/Vol] 8.5 mg/dL Normal 8.4-10.2 [facility] Comment on above: Order Comment: [facility] has implemented the eGFR calculation approach that does not have a coefficient for race that conforms to the NKF-ASN Task Force Recommendations. Performed By: #### 4 [id number] #### [facility] [address] [place], [place] [id number] Emmanuel Plata M.D. [id number] Chloride [Moles/Vol] 107 mmol/L Normal 98-108 [facility] Comment on above: Order Comment: [facility] has implemented the eGFR calculation approach that does not have a coefficient for race that conforms to the NKF-ASN Task Force Recommendations. Performed By: #### 4 [id number] #### [facility] [address] [place] [address] Emmanuel Plata M.D. [id number] Creatinine [Mass/Vol] 0.97 mg/dL Normal 0.80-1.30 [facility] Comment on above: Order Comment: [facility] has implemented the eGFR calculation approach that does not have a coefficient for race that conforms to the NKF-ASN Task Force Recommendations. Performed By: #### 4 [id number] #### [facility] [address] [place] [address] Emmanuel Plata M.D. [id number] EGFR 76 mL/min/1.73 m2 Normal >=60 [facility] Comment on above: Order Comment: [facility] has implemented the eGFR calculation approach that does not have a coefficient for race that conforms to the NKF-ASN Task Force Recommendations. Result Comment: Maria Del [place]en mated GFR was calculated using the 2020 CKD-EPI creatinine equation. Performed By: #### 4 [id number] #### [facility] [address] [place] [address] Emmanuel Plata M.D. [id number] Glucose [Mass/Vol] 97 mg/dL Normal 65-99 [facility] Comment on above: Order Comment: [facility] has implemented the eGFR calculation approach that does not have a coefficient for race that conforms to the NKF-ASN Task Force Recommendations. Performed By: #### 4 [id number] #### [facility] [address] [place] [address]14[address] Emmanuel Plata M.D. [id number] HCO3 (Bld) [Moles/Vol] 22 mmol/L Normal 21-32 [facility] Comment on above: Order Comment: [facility] has implemented the eGFR calculation approach that does not have a coefficient for race that conforms to the NKF-ASN Task Force Recommendations. Performed By: #### 4 [id number] #### [facility] [address] [place] [address] Emmanuel Plata M.D. [id number] Potassium [Moles/Vol] 4.1 mmol/L Normal 3.5-5.1 [facility] Comment on above: Order Comment: [facility] has implemented the eGFR calculation approach that does not have a coefficient for race that conforms to the NKF-ASN Task Force Recommendations. Performed By: #### 4 [id number] #### [facility] [address] [place] [address] Emmanuel Plata M.D. [id number] Sodium [Moles/Vol] 139 mmol/L Normal 135-145 [facility] Comment on above: Order Comment: [facility] has implemented the eGFR calculation approach that does not have a coefficient for race that conforms to the NKF-ASN Task Force Recommendations. Performed By: #### 4 [id number] #### [facility] [address] [place] [address] Emmanuel Plata M.D. [id number] Urea nitrogen [Mass/Vol] 20 mg/dL Normal 8-25 [facility] Comment on above: Order Comment: [facility] has implemented the eGFR calculation approach that does not have a coefficient for race that conforms to the NKF-ASN Task Force Recommendations. Performed By: #### 4 [id number] #### [facility] [address] [place] [address] Emmanuel Plata M.D. [id number] Urea nitrogen/Creatinine [Mass ratio] 20.6 mg/mg High 10.0-20.0 [facility] Comment on above: Order Comment: [facility] has implemented the eGFR calculation approach that does not have a coefficient for race that conforms to the NKF-ASN Task Force Recommendations. Performed By: #### 4 [id number] #### [facility] [address] [place] [address]83[address] Emmanuel Plata M.D. [id number] Basic metabolic 2000 panelon 03-20-2025 Anion gap [Moles/Vol] 14 mmol/L 10 - 2 0 mmol/L [facility] Calcium [Mass/Vol] 8.5 mg/dL 8.4 - 10. 2 mg/dL [facility] Chloride [Moles/Vol] 107 mmol/L 98 - 10 8 mmol/L [facility] Creatinine [Mass/Vol] 0.97 mg/dL 0.80 - 1.30 mg/dL [facility] GFR/1.73 sq M.predicted CKD-EPI (S/P/Bld) [Vol rate/Area] 76 - PINF [facility] Comment on above: Estimated GFR was ca lculated using the 2020 CKD-EPI creatinine equation. Glucose [Mass/Vol] 97 mg/dL 65 - 99 mg/dL [facility] HCO3 [Moles/Vol] 22 mmol/L 21 - 32 mmol/L [facility] Interpretation and review of laboratory results Abnormal [facility] Potassium [Moles/Vol] 4.1 mmol/L 3.5 - 5.1 mmol/L [facility] Sodium [Moles/Vol] 139 mmol/L 135 - 145 mmol/L [facility] Urea nitrogen [Mass/Vol] 20 mg/dL 8 - 25 mg/dL [facility] Urea nitrogen/Creatinine [Mass ratio] 20.6 mg/mg High 10.0 - 20.0 [facility] has implemented the eGFR calculation approach that does not have a coefficient for race that conforms to the NKF-ASN Task Force Recommendations. [facility] CBCon 03-20-2025 AUTO NRBC 0.0 % Normal [facility] Comment on above: Performed By: #### 4 [id number] #### [facility] [address] [place] [address] Emmanuel Plata M.D. [id number] AUTO NRBC ABS COUNT 0.00 K/mcL Normal 0.00-0.00 [facility] Comment on above: Performed By: #### 4 [id number] #### [facility] [address] [place] [address] Emmanuel Plata M.D. [id number] Erythrocyte distribution width (RBC) [Ratio] 13.8 % Normal 11.6-14.8 [facility] Comment on above: Performed By: #### 4 [id number] #### [facility] [address] [place], [place] [address] Emmanuel Plata M.D. [id number] Hematocrit (Bld) [Volume fraction] 29.1 % Low 41.0-53.0 [facility] Comment on above: Performed By: #### 4 [id number] #### [facility] [address] [place], [place] [address] Emmanuel Plata M.D. [id number] Hemoglobin (Bld) [Mass/Vol] 10.0 g/dL Low 13.5-17.5 [facility] Comment on above: Performed By: #### 4 [id number] #### [facility] [address] [place], [place] [address] Emmanuel Plata M.D. [id number] MCH (RBC) [Entitic mass] 33.3 pg Normal 26.0-34.0 [facility] Comment on above: Performed By: #### 4 [id number] #### [facility] [address] [place], [place] [address] Emmanuel Plata M.D. [id number] MCV (RBC) [Entitic vol] 97.0 fL Normal 80.0-100.0 [facility] Comment on above: Performed By: #### 4 [id number] #### [facility] [address] [place] [address] Emmanuel Plata M.D. [id number] MEAN CORPUSCULAR HEMOGLOBIN CONC 34.4 g/dL Normal 31.0-37.0 [facility] Comment on above: Performed By: #### 4 [id number] #### [facility] [address] [place] [address] Emmanuel Plata M.D. [id number] Platelet mean volume (Bld) [Entitic vol] 9.8 fL Normal 9.4-12.4 [facility] Comment on above: Performed By: #### 4 [id number] #### [facility] [address] [place], [place] [id number] Emmanuel Plata M.D. [id number] Platelets (Bld) [#/Vol] 167 10*3/uL Normal 150-400 [facility] Comment on above: Performed By: #### 4 [id number] #### [facility] [address] [place], [place] [address] Emmanuel Plata M.D. [id number] RBC (Bld) [#/Vol] 3.00 10*6/uL Low 4.50-5.90 [facility] Comment on above: Performed By: #### 4 [id number] #### [facility] [address] [place], [place] [address] Emmanuel Plata M.D. [id number] WBC (Bld) [#/Vol] 4.86 10*3/uL Normal 4.50-11.00 [facility] Comment on above: Performed By: #### 4 [id number] #### [facility] [address] [place], [place] [id number] Emmanuel Plata M.D. [id number] CBC panel Auto (Bld)on 03-20 Erythrocyte distribution width (RBC) [Entitic vol] 13.8 % 11.6 - 14.8 % [facility] Hematocrit (Bld) [Volume fraction] 29.1 % Low 41.0 - 53.0 % [facility] Hemoglobin (Bld) [Mass/Vol] 10 g/dL Low 13.5 - 17.5 g/dL [facility] Interpretation and review of laboratory results Abnormal [facility] MCH (RBC) [Entitic mass] 33.3 pg 26.0 - 34.0 pg [facility] MCHC (RBC) [Mass/Vol] 34.4 g/dL 31.0 - 37.0 g/dL [facility] MCV (RBC) [Entitic vol] 97 fL 80.0 - 100.0 fL [facility] Nucleated RBC (Bld) [#/Vol] 0 10*3/uL [facility] Nucleated RBC/100 WBC (Bld) [Ratio] 0 % [facility] Platelet mean volume (Bld) [Entitic vol] 9.8 fL 9.4 - 12.4 fL [facility] Platelets (Bld) [#/Vol] 167 10*3/uL [facility] RBC (Bld) [#/Vol] 3 10*6/uL Low [facility] WBC (Bld) [#/Vol] 4.86 10*3/uL [facility] MAGNESIUM LEVELon 03-20-2025 Magnesium [Mass/Vol] 2.2 mg/dL Normal 1.6-2.4 [facility] Comment on above: Performed By: #### 4 [id number] #### [facility] [address] [place] [address] 47751 Emmanuel Plata M.D. [id number] Magnesiumon 03-20-2025 Magnesium [Mass/Vol] 2.2 mg/dL 1.6 - 2 .4 mg/dL [facility] Magnesium [Mass/Vol]on 03-20 Interpretation and review of laboratory results Normal [facility] No Panel Informationon 03-20 [facility] US ANKLE/BRACHIAL INDICES EX TREMITY LIMITEDon 03-20-2025 US ANKLE/BRACHIAL INDICES EXTREMITY LIMITED Patient Info Name: Tristin Powell Age: 85 years : 1940 Gender: Male Exam Date: 03/20/2025 8:42 AM Patient Status: INPATIENT Site Location: [facility] Indications I73.9 - Peripheral vascular disease, unspecified Procedure Description 34821 Limited bilateral noninvasive physiologic studies of upper or lower extremity arteries with bidirectional Doppler/PVR waveform analysis at 1-2 levels. Binder Technician: Maggy Dempsey T Staff Ordering Physician: Beena [...] Segmental BP RIGHT Brachial A mmH RIGHT NEWS CONTENT SPECIALIST mmH RIGHT NEWS CONTENT SPECIALIST Index: 0.53 RIGHT DPA mmH RIGHT DPA Index: 0.57 RIGHT Digit mmH RIGHT YAMILE Index: 0.57 RIGHT TBI Index: 0.00 LEFT NEWS CONTENT SPECIALIST Index: 0.36 LEFT NEWS CONTENT SPECIALIST mmH LEFT DPA Index: 0.41 LEFT DPA mmH LEFT YAMILE Index: 0.41 Doppler RIGHT NEWS CONTENT SPECIALIST Waveform: Monophasic RIGHT DPA Waveform: Monophasic LEFT NEWS CONTENT SPECIALIST Waveform: Monophasic LEFT DPA Waveform: Monophasic , PVR RIGHT Ankle Grade: Abnormal RIGHT Transmetarsal Grade: Abnormal RIGHT Digit (PPG) Grade: Absent LEFT Ankle Grade: Abnormal Prior Interventions 03/17/2025 right femoral and tibial bypass graft-. 03/17/2025 right femoral and tibial Report Signatures Finalized by Sylvia Meyer MD, RPVI, FSIR on 03/20/2025 09:40 AM Normal [facility] US ANKLE/BRACHIAL INDICES EXTREMITY LIMITED Patient Info Name: Tristin Powell Age: 85 years : 1940 Gender: Male Exam Date: 03/20/2025 8:42 AM Patient Status: INPATIENT Site Location: [facility] Indications I73.9 - Peripheral vascular disease, unspecified Procedure Description 58066 Limited bilateral noninvasive physiologic studies of upper or lower extremity arteries with bidirectional Doppler/PVR waveform analysis at 1-2 levels. Binder Technician: Maggy Dempsey T Staff Ordering Physician: Beena [...] Segmental BP RIGHT Brachial A mmH RIGHT NEWS CONTENT SPECIALIST mmH RIGHT NEWS CONTENT SPECIALIST Index: 0.53 RIGHT DPA mmH RIGHT DPA Index: 0.57 RIGHT Digit mmH RIGHT YAMILE Index: 0.57 RIGHT TBI Index: 0.00 LEFT NEWS CONTENT SPECIALIST Index: 0.36 LEFT NEWS CONTENT SPECIALIST mmH LEFT DPA Index: 0.41 LEFT DPA mmH LEFT YAMILE Index: 0.41 Doppler RIGHT NEWS CONTENT SPECIALIST Waveform: Monophasic RIGHT DPA Waveform: Monophasic LEFT NEWS CONTENT SPECIALIST Waveform: Monophasic LEFT DPA Waveform: Monophasic , [...] MonMar 20, 2025 9:40:58 AM EDT Normal [facility] US Doppler ankle/brachial in dexon 03-20-2025 Patient Info Name: Tristin Powell Age: 85 years : 1940 Gender: Male Exam Date: 03/20/2025 8:42 AM Patient Status: INPATIENT Site Location: [facility] Indications I73.9 - Peripheral vascular disease, unspecified Procedure Description 15702 Limited bilateral noninvasive physiologic studies of upper or lower extremity arteries with bidirectional Doppler/PVR waveform analysis at 1-2 levels. Binder Technician: Maggy Dempsey RVT Staff Ordering Physician: Beena Barraza Conclusions * [...] Segmental BP RIGHT Brachial A mmH RIGHT NEWS CONTENT SPECIALIST mmH RIGHT NEWS CONTENT SPECIALIST Index: 0.53 RIGHT DPA mmH RIGHT DPA Index: 0.57 RIGHT Digit mmH RIGHT YAMILE Index: 0.57 RIGHT TBI Index: 0.00 LEFT NEWS CONTENT SPECIALIST Index: 0.36 LEFT NEWS CONTENT SPECIALIST mmH LEFT DPA Index: 0.41 LEFT DPA mmH LEFT YAMILE Index: 0.41 Doppler RIGHT NEWS CONTENT SPECIALIST Waveform: Monophasic RIGHT DPA Waveform: Monophasic LEFT NEWS CONTENT SPECIALIST Waveform: Monophasic LEFT DPA Waveform: Monophasic , [...] 8:42 AM Patient Status: INPATIENT Site Location: [facility] Indications I73.9 - Peripheral vascular disease, unspecified Procedure Description 80454 Limited bilateral noninvasive physiologic studies of upper or lower extremity arteries with bidirectional Doppler/PVR waveform analysis at 1-2 levels. Binder Technician: Maggy Dempsey T Staff Ordering Physician: Beena [...] Segmental BP RIGHT Brachial A mmH RIGHT NEWS CONTENT SPECIALIST mmH RIGHT NEWS CONTENT SPECIALIST Index: 0.53 RIGHT DPA mmH RIGHT DPA Index: 0.57 RIGHT Digit mmH RIGHT YAMILE Index: 0.57 RIGHT TBI Index: 0.00 LEFT NEWS CONTENT SPECIALIST Index: 0.36 LEFT NEWS CONTENT SPECIALIST mmH LEFT DPA Index: 0.41 LEFT DPA mmH LEFT YAMILE Index: 0.41 Doppler RIGHT NEWS CONTENT SPECIALIST Waveform: Monophasic RIGHT DPA Waveform: Monophasic LEFT NEWS CONTENT SPECIALIST Waveform: Monophasic LEFT DPA Waveform: Monophasic , PVR RIGHT Ankle Grade: Abnormal RIGHT Transmetarsal Grade: Abnormal RIGHT Digit (PPG) Grade: Absent LEFT Ankle Grade: Abnormal Prior Interventions 03/17/2025 right femoral and tibial bypass graft-. 03/17/2025 right femoral and tibial Report Signatures Finalized by Sylvia Meyer MD, RPVI, FSIR on 03/20/2025 09:40 AM [facility] BASIC METABOLIC PANELon - Anion gap [Moles/Vol] 13 mmol/L Normal 10-20 [facility] [facility] Comment on above: Order Comment: Thera peutic range for APTT's is 68 - 104 seconds Performed By: #### 4 [id number] #### [facility] [address] [place] [address] Emmanuel Plata M.D. [id number] Calcium [Mass/Vol] 9.0 mg/dL Normal 8.4-10.2 [facility] Comment on above: Order Comment: Thera peutic range for APTT's is 68 - 104 seconds Performed By: #### 4 6848 #### [facility] [address] [place], [place] [id number] Emmanuel Plata M.D. [id number] Chloride [Moles/Vol] 108 mmol/L Normal 98-108 [facility] Comment on above: Order Comment: Thera peutic range for APTT's is 68 - 104 seconds Performed By: #### 4 6894 #### [facility] [address] [place], [place] [id number] Emmanuel Plata M.D. [id number] Creatinine [Mass/Vol] 1.12 mg/dL Normal 0.80-1.30 [facility] Comment on above: Order Comment: Thera peutic range for APTT's is 68 - 104 seconds Performed By: #### 4 6843 #### [facility] [address] [place], [place] [id number] Emamnuel Plata M.D. [id number] EGFR 64 mL/min/1.73 m2 Normal >=60 [facility] Comment on above: Order Comment: Thera peutic range for APTT's is 68 - 104 seconds Result Comment: Maria Del Carmen mated GFR was calculated using the 2020 CKD-EPI creatinine equation. Performed By: #### 4 6879 #### [facility] [address] [place], [place] [id number] Emmanuel Plata M.D. [id number] Glucose [Mass/Vol] 109 mg/dL High 65-99 [facility] Comment on above: Order Comment: Thera peutic range for APTT's is 68 - 104 seconds Performed By: #### 4 6829 #### [facility] [address] [place], [place] [id number] Emmanuel Plata M.D. [id number] HCO3 (Bld) [Moles/Vol] 24 mmol/L Normal 21-32 [facility] Comment on above: Order Comment: Thera peutic range for APTT's is 68 - 104 seconds Performed By: #### 4 6855 #### [facility] [address] [place], [place] [id number] Emmanuel Plata M.D. [id number] Potassium [Moles/Vol] 5.0 mmol/L Normal 3.5-5.1 [facility] Comment on above: Order Comment: Thera peutic range for APTT's is 68 - 104 seconds Result Comment: Slig htly Hemolyzed Performed By: #### 4 9804 #### [facility] [address] [place] [address] Emmanuel lPata M.D. [id number] Sodium [Moles/Vol] 140 mmol/L Normal 135-145 [facility] Comment on above: Order Comment: Thera peutic range for APTT's is 68 - 104 seconds Performed By: #### 4 9482 #### [facility] [address] [place], [place] [id number] Emmanuel Plata M.D. [id number] Urea nitrogen [Mass/Vol] 22 mg/dL Normal 8-25 [facility] Comment on above: Order Comment: Thera peutic range for APTT's is 68 - 104 seconds Performed By: #### 4 0116 #### [facility] [address] [place], [place] [id number] Emmanuel Plata M.D. [id number] Urea nitrogen/Creatinine [Mass ratio] 19.6 mg/mg Normal 10.0-20.0 [facility] Comment on above: Order Comment: Thera peutic range for APTT's is 68 - 104 seconds Performed By: #### 4 0859 #### [facility] [address] [place], [place] [id number] Emmanuel Plata M.D. [id number] Basic metabolic 2000 panelOr dered By: Larry Brady on 03-19-2025 Anion gap [Moles/Vol] 13 mmol/L 10 - 2 0 mmol/L [facility] Calcium [Mass/Vol] 9 mg/dL 8.4 - 10. 2 mg/dL [facility] Chloride [Moles/Vol] 108 mmol/L 98 - 10 8 mmol/L [facility] Creatinine [Mass/Vol] 1.12 mg/dL 0.80 - 1.30 mg/dL [facility] GFR/1.73 sq M.predicted CKD-EPI (S/P/Bld) [Vol rate/Area] 64 - PINF [facility] Comment on above: Estimated GFR was ca lculated using the 2020 CKD-EPI creatinine equation. Glucose [Mass/Vol] 109 mg/dL High 65 - 99 mg/dL [facility] HCO3 [Moles/Vol] 24 mmol/L 21 - 32 mmol/L [facility] Interpretation and review of laboratory results Abnormal [facility] Potassium [Moles/Vol] 5 mmol/L 3.5 - 5.1 mmol/L [facility] Comment on above: Slightly Hemolyzed Sodium [Moles/Vol] 140 mmol/L 135 - 145 mmol/L [facility] Urea nitrogen [Mass/Vol] 22 mg/dL 8 - 25 mg/dL [facility] Urea nitrogen/Creatinine [Mass ratio] 19.6 mg/mg 10.0 - 20.0 [facility] has implemented the eGFR calculation approach that does not have a coefficient for race that conforms to the NKF-ASN Task Force Recommendations. [facility] CBCon 03-19-2025 AUTO NRBC 0.0 % Normal [facility] Comment on above: Performed By: #### 4 [id number] #### [facility] [address] [place] [address] Emmanuel Plata M.D. [id number] AUTO NRBC ABS COUNT 0.00 K/mcL Normal 0.00-0.00 [facility] Comment on above: Performed By: #### 4 [id number] #### [facility] [address] [place], [place] [id number] Emmanuel Plata M.D. [id number] Erythrocyte distribution width (RBC) [Ratio] 14.5 % Normal 11.6-14.8 [facility] Comment on above: Performed By: #### 4 [id number] #### [facility] [address] [place], [place] [id number] Emmanuel Plata M.D. [id number] Hematocrit (Bld) [Volume fraction] 27.8 % Low 41.0-53.0 [facility] Comment on above: Performed By: #### 4 [id number] #### [facility] [address] [place] [address] Emmanuel Plata M.D. [id number] Hemoglobin (Bld) [Mass/Vol] 10.4 g/dL Low 13.5-17.5 [facility] Comment on above: Performed By: #### 4 [id number] #### [facility] [address] [place] [address] Emamnuel Plata M.D. [id number] MCH (RBC) [Entitic mass] 36.1 pg High 26.0-34.0 [facility] Comment on above: Performed By: #### 4 [id number] #### [facility] [address] [place], [place] [id number] Emmanuel Plata M.D. [id number] MCV (RBC) [Entitic vol] 96.5 fL Normal 80.0-100.0 [facility] Comment on above: Performed By: #### 4 [id number] #### [facility] [address] [place] [address] Emmanuel Plata M.D. [id number] MEAN CORPUSCULAR HEMOGLOBIN CONC 37.4 g/dL High 31.0-37.0 [facility] Comment on above: Performed By: #### 4 [id number] #### [facility] [address] [place] [address] Emmanuel Plata M.D. [id number] Platelet mean volume (Bld) [Entitic vol] 9.6 fL Normal 9.4-12.4 [facility] Comment on above: Performed By: #### 4 [id number] #### [facility] [address] [place] [address] Emmanuel Plata M.D. [id number] Platelets (Bld) [#/Vol] 148 10*3/uL Low 150-400 [facility] Comment on above: Performed By: #### 4 [id number] #### [facility] [address] [place] [address] Emmanuel Plata M.D. [id number] RBC (Bld) [#/Vol] 2.88 10*6/uL Low 4.50-5.90 [facility] Comment on above: Performed By: #### 4 [id number] #### [facility] [address] [place] [address] Emmanuel Plata M.D. [id number] WBC (Bld) [#/Vol] 4.34 10*3/uL Low 4.50-11.00 [facility] Comment on above: Performed By: #### 4 [id number] #### [facility] [address] [place] [address] Emmanuel Plata M.D. [id number] CBC panel Auto (Bld)on 03-19 Erythrocyte distribution width (RBC) [Entitic vol] 14.5 % 11.6 - 14.8 % [facility] Hematocrit (Bld) [Volume fraction] 27.8 % Low 41.0 - 53.0 % [facility] Hemoglobin (Bld) [Mass/Vol] 10.4 g/dL Low 13.5 - 17.5 g/dL [facility] Interpretation and review of laboratory results Abnormal [facility] MCH (RBC) [Entitic mass] 36.1 pg High 26.0 - 34.0 pg [facility] MCHC (RBC) [Mass/Vol] 37.4 g/dL High 31.0 - 37.0 g/dL [facility] MCV (RBC) [Entitic vol] 96.5 fL 80.0 - 100.0 fL [facility] Nucleated RBC (Bld) [#/Vol] 0 10*3/uL [facility] Nucleated RBC/100 WBC (Bld) [Ratio] 0 % [facility] Platelet mean volume (Bld) [Entitic vol] 9.6 fL 9.4 - 12.4 fL [facility] Platelets (Bld) [#/Vol] 148 10*3/uL Low [facility] RBC (Bld) [#/Vol] 2.88 10*6/uL Low [facility] WBC (Bld) [#/Vol] 4.34 10*3/uL Low [facility] MAGNESIUM LEVELon 03-19-2025 Magnesium [Mass/Vol] 2.4 mg/dL Normal 1.6-2.4 [facility] Comment on above: Performed By: #### 4 6109 #### [facility] [address] [place] [address] Emmanuel Plata M.D. [id number] Magnesiumon 03-19-2025 Magnesium [Mass/Vol] 2.4 mg/dL 1.6 - 2 .4 mg/dL [facility] Magnesium [Mass/Vol]on 03-19 Interpretation and review of laboratory results Normal [facility] No Panel InformationOrdered By: Larry Brady on 03-19-2025 [facility] BASIC METABOLIC PANELon 02-26 Anion gap [Moles/Vol] 16 mmol/L Normal 10-20 [facility] Comment on above: Order Comment: [facility] has implemented the eGFR calculation approach that does not have a coefficient for race that conforms to the NKF-ASN Task Force Recommendations. Performed By: #### 4 [id number] #### [facility] [address] [place] [address] Emmanuel Plata M.D. [id number] Calcium [Mass/Vol] 8.2 mg/dL Low 8.4-10.2 [facility] Comment on above: Order Comment: [facility] has implemented the eGFR calculation approach that does not have a coefficient for race that conforms to the NKF-ASN Task Force Recommendations. Performed By: #### 4 [id number] #### [facility] [address] [place] [address] Emmanuel Plata M.D. [id number] Chloride [Moles/Vol] 109 mmol/L High 98-108 [facility] Comment on above: Order Comment: [facility] has implemented the eGFR calculation approach that does not have a coefficient for race that conforms to the NKF-ASN Task Force Recommendations. Performed By: #### 4 [id number] #### [facility] [address] [place] [address] Emmanuel Plata M.D. [id number] Creatinine [Mass/Vol] 1.05 mg/dL Normal 0.80-1.30 [facility] Comment on above: Order Comment: [facility] has implemented the eGFR calculation approach that does not have a coefficient for race that conforms to the NKF-ASN Task Force Recommendations. Performed By: #### 4 [id number] #### [facility] [address] [place] [address] Emmanuel Plata M.D. [id number] EGFR 69 mL/min/1.73 m2 Normal >=60 [facility] Comment on above: Order Comment: [facility] has implemented the eGFR calculation approach that does not have a coefficient for race that conforms to the NKF-ASN Task Force Recommendations. Result Comment: Maria Del Carmen mated GFR was calculated using the 2020 CKD-EPI creatinine equation. Performed By: #### 4 [id number] #### [facility] [address] [place] [address] Emmanuel Plata M.D. [id number] Glucose [Mass/Vol] 111 mg/dL High 65-99 [facility] Comment on above: Order Comment: [facility] has implemented the eGFR calculation approach that does not have a coefficient for race that conforms to the NKF-ASN Task Force Recommendations. Performed By: #### 4 [id number] #### [facility] [address] [place] [address] Emmanuel Plata M.D. [id number] HCO3 (Bld) [Moles/Vol] 19 mmol/L Low 21-32 [facility] Comment on above: Order Comment: [facility] has implemented the eGFR calculation approach that does not have a coefficient for race that conforms to the NKF-ASN Task Force Recommendations. Performed By: #### 4 [id number] #### [facility] [address] [place] [address] Emmanuel Plata M.D. [id number] Potassium [Moles/Vol] 4.1 mmol/L Normal 3.5-5.1 [facility] Comment on above: Order Comment: [facility] has implemented the eGFR calculation approach that does not have a coefficient for race that conforms to the NKF-ASN Task Force Recommendations. Result Comment: Slig htly Hemolyzed Performed By: #### 4 [id number] #### [facility] [address] [place] [address] Emmanuel Plata M.D. [id number] Sodium [Moles/Vol] 140 mmol/L Normal 135-145 [facility] Comment on above: Order Comment: [facility] has implemented the eGFR calculation approach that does not have a coefficient for race that conforms to the NKF-ASN Task Force Recommendations. Performed By: #### 4 [id number] #### [facility] [address] [place] [address] Emmanuel Plata M.D. [id number] Urea nitrogen [Mass/Vol] 18 mg/dL Normal 8-25 [facility] Comment on above: Order Comment: [facility] has implemented the eGFR calculation approach that does not have a coefficient for race that conforms to the NKF-ASN Task Force Recommendations. Performed By: #### 4 [id number] #### [facility] [address] [place], [place] [address] Emmanuel Plata M.D. [id number] Urea nitrogen/Creatinine [Mass ratio] 17.1 mg/mg Normal 10.0-20.0 [facility] Comment on above: Order Comment: [facility] has implemented the eGFR calculation approach that does not have a coefficient for race that conforms to the NKF-ASN Task Force Recommendations. Performed By: #### 4 [id number] #### [facility] [address] [place], [place] [address] Emmanuel Plata M.D. [id number] Basic metabolic 2000 panelOr dered By: Fred Hameed on 03-18-2025 Anion gap [Moles/Vol] 16 mmol/L 10 - 2 0 mmol/L [facility] Calcium [Mass/Vol] 8.2 mg/dL Low 8.4 - 10. 2 mg/dL [facility] Chloride [Moles/Vol] 109 mmol/L High 98 - 10 8 mmol/L [facility] Creatinine [Mass/Vol] 1.05 mg/dL 0.80 - 1.30 mg/dL [facility] GFR/1.73 sq M.predicted CKD-EPI (S/P/Bld) [Vol rate/Area] 69 - PINF [facility] Comment on above: Estimated GFR was ca lculated using the 2020 CKD-EPI creatinine equation. Glucose [Mass/Vol] 111 mg/dL High 65 - 99 mg/dL [facility] HCO3 [Moles/Vol] 19 mmol/L Low 21 - 32 mmol/L [facility] Interpretation and review of laboratory results Abnormal [facility] Potassium [Moles/Vol] 4.1 mmol/L 3.5 - 5.1 mmol/L [facility] Comment on above: Slightly Hemolyzed Sodium [Moles/Vol] 140 mmol/L 135 - 145 mmol/L [facility] Urea nitrogen [Mass/Vol] 18 mg/dL 8 - 25 mg/dL [facility] Urea nitrogen/Creatinine [Mass ratio] 17.1 mg/mg 10.0 - 20.0 [facility] has implemented the eGFR calculation approach that does not have a coefficient for race that conforms to the NKF-ASN Task Force Recommendations. [facility] CBCon 03-18-2025 AUTO NRBC 0.0 % Normal [facility] Comment on above: Performed By: #### 4 [id number] #### [facility] [address] [place], [place] [id number] Emmanuel Plata M.D. [id number] AUTO NRBC ABS COUNT 0.00 K/mcL Normal 0.00-0.00 [facility] Comment on above: Performed By: #### 4 [id number] #### [facility] [address] [place] [address] Emmanuel Plata M.D. [id number] Erythrocyte distribution width (RBC) [Ratio] 13.3 % Normal 11.6-14.8 [facility] Comment on above: Performed By: #### 4 [id number] #### [facility] [address] [place], [place] [address] Emmanuel Plata M.D. [id number] Hematocrit (Bld) [Volume fraction] 28.9 % Low 41.0-53.0 [facility] Comment on above: Performed By: #### 4 [id number] #### [facility] [address] [place], [place] [address] Emmanuel Plata M.D. [id number] Hemoglobin (Bld) [Mass/Vol] 10.5 g/dL Low 13.5-17.5 [facility] Comment on above: Performed By: #### 4 [id number] #### [facility] [address] [place], [place] [id number] Emmanuel Plata M.D. [id number] MCH (RBC) [Entitic mass] 34.3 pg High 26.0-34.0 [facility] Comment on above: Performed By: #### 4 [id number] #### [facility] [address] [place] [address] Emmanuel Plata M.D. [id number] MCV (RBC) [Entitic vol] 94.4 fL Normal 80.0-100.0 [facility] Comment on above: Performed By: #### 4 [id number] #### [facility] [address] [place] [address] Emmanuel Plata M.D. [id number] MEAN CORPUSCULAR HEMOGLOBIN CONC 36.3 g/dL Normal 31.0-37.0 [facility] Comment on above: Performed By: #### 4 [id number] #### [facility] [address] [place] [address] Emmanuel Plata M.D. [id number] Platelet mean volume (Bld) [Entitic vol] 9.7 fL Normal 9.4-12.4 [facility] Comment on above: Performed By: #### 4 [id number] #### [facility] [address] [place] [address] Emmanuel Plata M.D. [id number] Platelets (Bld) [#/Vol] 157 10*3/uL Normal 150-400 [facility] Comment on above: Performed By: #### 4 [id number] #### [facility] [address] [place], [place] [id number] Emmanuel Plata M.D. [id number] RBC (Bld) [#/Vol] 3.06 10*6/uL Low 4.50-5.90 [facility] Comment on above: Performed By: #### 4 [id number] #### [facility] [address] [place] [address] 60705Nessa Plata M.D. [id number] WBC (Bld) [#/Vol] 5.05 10*3/uL Normal 4.50-11.00 [facility] Comment on above: Performed By: #### 4 [id number] #### [facility] [address] [place] [address] 60173Nessa Plata M.D. [id number] CBC panel Auto (Bld)on 03-18 Erythrocyte distribution width (RBC) [Entitic vol] 13.3 % 11.6 - 14.8 % [facility] Hematocrit (Bld) [Volume fraction] 28.9 % Low 41.0 - 53.0 % [facility] Hemoglobin (Bld) [Mass/Vol] 10.5 g/dL Low 13.5 - 17.5 g/dL [facility] Interpretation and review of laboratory results Abnormal [facility] MCH (RBC) [Entitic mass] 34.3 pg High 26.0 - 34.0 pg [facility] MCHC (RBC) [Mass/Vol] 36.3 g/dL 31.0 - 37.0 g/dL [facility] MCV (RBC) [Entitic vol] 94.4 fL 80.0 - 100.0 fL [facility] Nucleated RBC (Bld) [#/Vol] 0 10*3/uL [facility] Nucleated RBC/100 WBC (Bld) [Ratio] 0 % [facility] Platelet mean volume (Bld) [Entitic vol] 9.7 fL 9.4 - 12.4 fL [facility] Platelets (Bld) [#/Vol] 157 10*3/uL [facility] RBC (Bld) [#/Vol] 3.06 10*6/uL Low [facility] WBC (Bld) [#/Vol] 5.05 10*3/uL [facility] MAGNESIUM LEVELon 03-18-2025 Magnesium [Mass/Vol] 2.1 mg/dL Normal 1.6-2.4 [facility] Comment on above: Performed By: #### 4 [id number] #### [facility] [address] [place] [address] Emmanuel Plata M.D. [id number] Magnesiumon 03-18-2025 Magnesium [Mass/Vol] 2.1 mg/dL 1.6 - 2 .4 mg/dL [facility] Magnesium [Mass/Vol]on 03-18 Interpretation and review of laboratory results Normal [facility] No Panel Informationon 03-18 [facility] US Lower extremity vein - ri ghton 03-18-2025 Fluoroscopy used for intraoperative angiogram. Refer to the operative report for details. [employer] Workstation ID: [id number] [facility] EXAMINATION: XR OR ANGIO LOWER [...] Refer to the operative report for details. [employer] Workstation ID: [id number] [facility] Lower extremity vein - ri ghtOrdered By: Sylvia Meyer on 03-18-2025 [facility] Work Phone: APTT HEPARIN COVERAGEon 02-26 aPTT Coag (Bld) [Time] 92 s High 23-34 [facility] Comment on above: Order Comment: Thera peutic range for APTT's is 68 - 104 seconds Performed By: #### 4 [id number] #### [facility] [address] [place] [address] Emmanuel Plata M.D. [id number] APTT Heparin Coverageon 02-26 aPTT Coag (Bld) [Time] 92 s High [facility] Interpretation and review of laboratory results Abnormal [facility] Therapeutic range fo r APTT's is 68 - 104 seconds [facility] BASIC METABOLIC PANELon 02-26 Anion gap [Moles/Vol] 12 mmol/L Normal 10-20 [facility] Comment on above: Order Comment: [facility] has implemented the eGFR calculation approach that does not have a coefficient for race that conforms to the NKF-ASN Task Force Recommendations. Performed By: #### 4 6109 #### [facility] [address] [place] [address] Emmanuel Plata M.D. [id number] Calcium [Mass/Vol] 8.5 mg/dL Normal 8.4-10.2 [facility] Comment on above: Order Comment: [facility] has implemented the eGFR calculation approach that does not have a coefficient for race that conforms to the NKF-ASN Task Force Recommendations. Performed By: #### 4 6109 #### [facility] [address] [place] [address]162 Emmanuel Plata M.D. [id number] Chloride [Moles/Vol] 106 mmol/L Normal 98-108 [facility] Comment on above: Order Comment: [facility] has implemented the eGFR calculation approach that does not have a coefficient for race that conforms to the NKF-ASN Task Force Recommendations. Performed By: #### 4 6109 #### [facility] [address] [place], [place] [id number] Emmanuel Plata M.D. [id number] Creatinine [Mass/Vol] 1.05 mg/dL Normal 0.80-1.30 [facility] Comment on above: Order Comment: [facility] has implemented the eGFR calculation approach that does not have a coefficient for race that conforms to the NKF-ASN Task Force Recommendations. Performed By: #### 4 6109 #### [facility] [address] [place] [address] 47319 Emmanuel Plata M.D. [id number] EGFR 69 mL/min/1.73 m2 Normal >=60 [facility] Comment on above: Order Comment: [facility] has implemented the eGFR calculation approach that does not have a coefficient for race that conforms to the NKF-ASN Task Force Recommendations. Result Comment: Maria Del Carmen mated GFR was calculated using the 2020 CKD-EPI creatinine equation. Performed By: #### 4 [id number] #### [facility] [address] [place] [address] 41743 Emmanuel Plata M.D. [id number] Glucose [Mass/Vol] 90 mg/dL Normal 65-99 [facility] Comment on above: Order Comment: [facility] has implemented the eGFR calculation approach that does not have a coefficient for race that conforms to the NKF-ASN Task Force Recommendations. Performed By: #### 4 [id number] #### [facility] [address] [place] [address] 23052 Emmanuel Plata M.D. [id number] HCO3 (Bld) [Moles/Vol] 24 mmol/L Normal 21-32 [facility] Comment on above: Order Comment: [facility] has implemented the eGFR calculation approach that does not have a coefficient for race that conforms to the NKF-ASN Task Force Recommendations. Performed By: #### 4 [id number] #### [facility] [address] [place] [id number] Emmanuel Plata M.D. [id number] Potassium [Moles/Vol] 4.1 mmol/L Normal 3.5-5.1 [facility] Comment on above: Order Comment: [facility] has implemented the eGFR calculation approach that does not have a coefficient for race that conforms to the NKF-ASN Task Force Recommendations. Performed By: #### 4 [id number] #### [facility] [address] [place] [address] Emmanuel Plata M.D. [id number] Sodium [Moles/Vol] 138 mmol/L Normal 135-145 [facility] Comment on above: Order Comment: [facility] has implemented the eGFR calculation approach that does not have a coefficient for race that conforms to the NKF-ASN Task Force Recommendations. Performed By: #### 4 6109 #### [facility] [address] [place] [address] 59[address] Emmanuel Plata M.D. [id number] Urea nitrogen [Mass/Vol] 16 mg/dL Normal 8-25 [facility] Comment on above: Order Comment: [facility] has implemented the eGFR calculation approach that does not have a coefficient for race that conforms to the NKF-ASN Task Force Recommendations. Performed By: #### 4 6109 #### [facility] [address] [place] [address] 566[address] Emmanuel Plata M.D. [id number] Urea nitrogen/Creatinine [Mass ratio] 15.2 mg/mg Normal 10.0-20.0 [facility] Comment on above: Order Comment: [facility] has implemented the eGFR calculation approach that does not have a coefficient for race that conforms to the NKF-ASN Task Force Recommendations. Performed By: #### 4 [id number] #### [facility] [address] [place] [address] 60527 Emmanuel Plata M.D. [id number] Basic metabolic 2000 panelon 03-17-2025 Anion gap [Moles/Vol] 12 mmol/L 10 - 2 0 mmol/L [facility] Calcium [Mass/Vol] 8.5 mg/dL 8.4 - 10. 2 mg/dL [facility] Chloride [Moles/Vol] 106 mmol/L 98 - 10 8 mmol/L [facility] Creatinine [Mass/Vol] 1.05 mg/dL 0.80 - 1.30 mg/dL [facility] GFR/1.73 sq M.predicted CKD-EPI (S/P/Bld) [Vol rate/Area] 69 - PINF [facility] Comment on above: Estimated GFR was ca lculated using the 2020 CKD-EPI creatinine equation. Glucose [Mass/Vol] 90 mg/dL 65 - 99 mg/dL [facility] HCO3 [Moles/Vol] 24 mmol/L 21 - 32 mmol/L [facility] Potassium [Moles/Vol] 4.1 mmol/L 3.5 - 5.1 mmol/L [facility] Sodium [Moles/Vol] 138 mmol/L 135 - 145 mmol/L [facility] Urea nitrogen [Mass/Vol] 16 mg/dL 8 - 25 mg/dL [facility] Urea nitrogen/Creatinine [Mass ratio] 15.2 mg/mg 10.0 - 20.0 [facility] has implemented the eGFR calculation approach that does not have a coefficient for race that conforms to the NKF-ASN Task Force Recommendations. [facility] CBCon 03-17-2025 AUTO NRBC 0.0 % Normal [facility] Comment on above: Performed By: #### 4 7682 #### [facility] [address] [place] [address] Emmanuel Plata M.D. [id number] AUTO NRBC ABS COUNT 0.00 K/mcL Normal 0.00-0.00 [facility] Comment on above: Performed By: #### 4 7861 #### [facility] [address] [place], [place] [id number] Emmanuel Plata M.D. [id number] Erythrocyte distribution width (RBC) [Ratio] 13.2 % Normal 11.6-14.8 [facility] Comment on above: Performed By: #### 3 2722 #### [facility] [address] [place], [place] [id number] Emmanuel Plata M.D. [id number] Hematocrit (Bld) [Volume fraction] 33.1 % Low 41.0-53.0 [facility] Comment on above: Result Comment: Repe ated AND verified Performed By: #### 8 7650 #### [facility] [address] [place], [place] [id number] Emmanuel Plata M.D. [id number] Hemoglobin (Bld) [Mass/Vol] 11.0 g/dL Low 13.5-17.5 [facility] Comment on above: Performed By: #### 3 0058 #### [facility] [address] [place], [place] [id number] Emmanuel Plata M.D. [id number] MCH (RBC) [Entitic mass] 29.8 pg Normal 26.0-34.0 [facility] Comment on above: Performed By: #### 4 5885 #### [facility] [address] [place], [place] [id number] Emmanuel Plata M.D. [id number] MCV (RBC) [Entitic vol] 89.7 fL Normal 80.0-100.0 [facility] Comment on above: Performed By: #### 4 8103 #### [facility] [address] [place] [address] Emmanuel Plata M.D. [id number] MEAN CORPUSCULAR HEMOGLOBIN CONC 33.2 g/dL Normal 31.0-37.0 [facility] Comment on above: Result Comment: Cold Agglutinin present Performed By: #### 4 6054 #### [facility] [address] [place] [address] Emmanuel Plata M.D. [id number] Platelet mean volume (Bld) [Entitic vol] 10.2 fL Normal 9.4-12.4 [facility] Comment on above: Performed By: #### 4 8674 #### [facility] [address] [place], [place] [id number] Emmanuel Plata M.D. [id number] Platelets (Bld) [#/Vol] 153 10*3/uL Normal 150-400 [facility] Comment on above: Performed By: #### 4 1074 #### [facility] [address] [place], [place] [id number] Emmanuel Plata M.D. [id number] RBC (Bld) [#/Vol] 3.69 10*6/uL Low 4.50-5.90 [facility] Comment on above: Performed By: #### 4 1770 #### [facility] [address] [place] [address] Emmanuel Plata M.D. [id number] WBC (Bld) [#/Vol] 3.29 10*3/uL Low 4.50-11.00 [facility] Comment on above: Performed By: #### 4 6848 #### [facility] [address] [place], [place] [address] Emmanuel Plata M.D. [id number] CBC panel Auto (Bld)on 03-17 Erythrocyte distribution width (RBC) [Entitic vol] 13.2 % 11.6 - 14.8 % [facility] Hematocrit (Bld) [Volume fraction] 33.1 % Low 41.0 - 53.0 % [facility] Comment on above: Repeated & verified Hemoglobin (Bld) [Mass/Vol] 11 g/dL Low 13.5 - 17.5 g/dL [facility] Interpretation and review of laboratory results Abnormal [facility] MCH (RBC) [Entitic mass] 29.8 pg 26.0 - 34.0 pg [facility] MCHC (RBC) [Mass/Vol] 33.2 g/dL 31.0 - 37.0 g/dL [facility] Comment on above: Cold Agglutinin pres ent MCV (RBC) [Entitic vol] 89.7 fL 80.0 - 100.0 fL [facility] Nucleated RBC (Bld) [#/Vol] 0 10*3/uL [facility] Nucleated RBC/100 WBC (Bld) [Ratio] 0 % [facility] Platelet mean volume (Bld) [Entitic vol] 10.2 fL 9.4 - 12.4 fL [facility] Platelets (Bld) [#/Vol] 153 10*3/uL [facility] RBC (Bld) [#/Vol] 3.69 10*6/uL Low [facility] (Bld) [#/Vol] 3.29 10*3/uL Low [facility] eah [facility] ECG 12 Leadon 03-17-2025 Atrial Rate 63 BPM [facility] P [place] 86 degrees [facility] P-R Interval 208 ms [facility] Q-T Interval 454 ms [facility] QRS Duration 102 ms [facility] QTC Calculation (Bezet) 464 ms [facility] R [place] 45 degrees [facility] T [place] 44 degrees [facility] Ventricular Rate 63 BPM [facility] Sinus rhythm with Premature supraventricular complexes Otherwise normal ECG Confirmed by MARY CARLTON ([id number]) on 03/17/2025 7:58:31 AM MUSE [facility] Glucose (Bld) [Mass/Vol]on 0 03-17-2025 Glucose [Mass/Vol] 105 mg/dL High 65 - 99 mg/dL [facility] Interpretation and review of laboratory results Abnormal [facility] HEMOGLOBIN AND HEMATOCRITon 03-17-2025 Hematocrit (Bld) [Volume fraction] 30.5 % Low 41.0-53.0 [facility] Comment on above: Performed By: #### 4 6109 #### [facility] [address] [place] [address] 335[address] Emmanuel Plata M.D. [id number] Hemoglobin (Bld) [Mass/Vol] 11.2 g/dL Low 13.5-17.5 [facility] Comment on above: Performed By: #### 4 6109 #### [facility] [address] [place] [address] 29746 Emmanuel Plata M.D. [id number] Hemoglobin and Hematocrit pa franklin (Bld)on 03-17-2025 Hematocrit (Bld) [Volume fraction] 30.5 % Low 41.0 - 53.0 % [facility] Hemoglobin (Bld) [Mass/Vol] 11.2 g/dL Low 13.5 - 17.5 g/dL [facility] Interpretation and review of laboratory results Abnormal [facility] MAGNESIUM LEVELon 03-17-2025 Magnesium [Mass/Vol] 2.1 mg/dL Normal 1.6-2.4 [facility] Comment on above: Performed By: #### 4 6109 #### [facility] [address] [place] [address] Emmanuel Plata M.D. [id number] Magnesiumon 03-17-2025 Magnesium [Mass/Vol] 2.1 mg/dL 1.6 - 2 .4 mg/dL [facility] No Panel Informationon 03-17 Interpretation and review of laboratory results Normal [facility] OP NOTEon 03-17-2025 OP NOTE TRISTIN [id number] DATE 03/17/2025 OPERATIVE REPORT SURGEON MOHSEN SARABIA MD FILTERATION OPERATOR FAUSTINA OROZCO, RESIDENT PREOPERATIVE DIAGNOSIS Chronic limb-threatening [...] did elect to shoot an angiogram. A 23-Gib[place] butterfly needle was used to puncture the [...] no specimens. ESTIMATED BLOOD LOSS 200 cc. MD Carlo GUNN 03/17/2025 16:58 [id number] T 03/17/2025 23:17 JPW/MODL AUTHENTICATED BY MOHSEN SARABIA, ON 03/24/2025 10:13:39 Normal [facility] P[facility] 025 Glucose [Mass/Vol] 105 mg/dL High 65-99 [facility] Comment on above: Performed By: #### 4 6932 #### [facility] [address] [place] [address] [id number] [facility] US Lower extremity vein - ri ash 03-17-2025 Radiology Study [facility]narrative[facility] ANGIO LOWER EXTREMITY RIGHTon 03-17-2025 [...] Refer to the operative report for details. 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 [id number] aPTT Coag (Bld) [Time] 90 s High 23-34 [facility] Comment on above: Order Comment: Thera peutic range for APTT's is 68 - 104 seconds Performed By: #### 4 6109 #### [facility] [address] [place] [address] Emmanuel Plata M.D. [id number] aPTT Coag (Bld) [Time] 91 s High 23-34 [facility] Comment on above: Order Comment: Thera peutic range for APTT's is 68 - 104 seconds Performed By: #### 4 6109 #### [facility] [address] [place], [place] [id number] Emmanuel Plata M.D. [id number] APTT Heparin CoverageOrdered By: Remigio Hernandez on 03-16-2025 aPTT Coag (Bld) [Time] 85 s High [facility] Interpretation and review of laboratory results Abnormal [facility] Therapeutic range fo r APTT's is 68 - 104 seconds [facility] APTT Heparin CoverageOrdered By: Flory Pino on 03-16-2025 aPTT Coag (Bld) [Time] 90 s High [facility] Therapeutic range fo r APTT's is 68 - 104 seconds [facility] APTT Heparin CoverageOrdered By: Deena Escoto on 03-16-2025 aPTT Coag (Bld) [Time] 91 s High [facility] Interpretation and review of laboratory results Abnormal [facility] Therapeutic range fo r APTT's is 68 - 104 seconds [facility] BASIC METABOLIC PANELon 02-26 Anion gap [Moles/Vol] 15 mmol/L Normal -20 [facility] Comment on above: Order Comment: [facility] has implemented the eGFR calculation approach that does not have a coefficient for race that conforms to the NKF-ASN Task Force Recommendations. Performed By: #### 4 [id number] #### [facility] [address] [place], [place] [id number] Emmanuel Plata M.D. [id number] Calcium [Mass/Vol] 9.0 mg/dL Normal 8.4-10.2 [facility] Comment on above: Order Comment: [facility] has implemented the eGFR calculation approach that does not have a coefficient for race that conforms to the NKF-ASN Task Force Recommendations. Performed By: #### 4 [id number] #### [facility] [address] [place] [address] 20231 Emmanuel Plata M.D. [id number] Chloride [Moles/Vol] 106 mmol/L Normal 98-108 [facility] Comment on above: Order Comment: [facility] has implemented the eGFR calculation approach that does not have a coefficient for race that conforms to the NKF-ASN Task Force Recommendations. Performed By: #### 4 [id number] #### [facility] [address] [place], [place] [address] Emmanuel Plata M.D. [id number] Creatinine [Mass/Vol] 1.11 mg/dL Normal 0.80-1.30 [facility] Comment on above: Order Comment: [facility] has implemented the eGFR calculation approach that does not have a coefficient for race that conforms to the NKF-ASN Task Force Recommendations. Performed By: #### 4 [id number] #### [facility] [address] [place] [address] 26909 Emmanuel Plata M.D. [id number] EGFR 65 mL/min/1.73 m2 Normal >=60 [facility] Comment on above: Order Comment: [facility] has implemented the eGFR calculation approach that does not have a coefficient for race that conforms to the NKF-ASN Task Force Recommendations. Result Comment: Maria [place]en mated GFR was calculated using the 2020 CKD-EPI creatinine equation. Performed By: #### 4 [id number] #### [facility] [address] [place] [address] 20038 Emmanuel Plata M.D. [id number] Glucose [Mass/Vol] 105 mg/dL High 65-99 [facility] Comment on above: Order Comment: [facility] has implemented the eGFR calculation approach that does not have a coefficient for race that conforms to the NKF-ASN Task Force Recommendations. Performed By: #### 4 [id number] #### [facility] [address] [place] [address] 45054 Emmanuel Plata M.D. [id number] HCO3 (Bld) [Moles/Vol] 24 mmol/L Normal 21-32 [facility] Comment on above: Order Comment: [facility] has implemented the eGFR calculation approach that does not have a coefficient for race that conforms to the NKF-ASN Task Force Recommendations. Performed By: #### 4 [id number] #### [facility] [address] [place] [address] 21283 Emmanuel Plata M.D. [id number] Potassium [Moles/Vol] 4.3 mmol/L Normal 3.5-5.1 [facility] Comment on above: Order Comment: [facility] has implemented the eGFR calculation approach that does not have a coefficient for race that conforms to the NKF-ASN Task Force Recommendations. Performed By: #### 4 [id number] #### [facility] [address] [place] [address] 34316 Emmanuel Plata M.D. [id number] Sodium [Moles/Vol] 141 mmol/L Normal 135-145 [facility] Comment on above: Order Comment: [facility] has implemented the eGFR calculation approach that does not have a coefficient for race that conforms to the NKF-ASN Task Force Recommendations. Performed By: #### 4 [id number] #### [facility] [address] [place] [address] 41226 Emmanuel Plata M.D. [id number] Urea nitrogen [Mass/Vol] 20 mg/dL Normal 8-25 [facility] Comment on above: Order Comment: [facility] has implemented the eGFR calculation approach that does not have a coefficient for race that conforms to the NKF-ASN Task Force Recommendations. Performed By: #### 4 [id number] #### [facility] [address] [place] [address] 22686 Emmanuel Plata M.D. [id number] Urea nitrogen/Creatinine [Mass ratio] 18.0 mg/mg Normal 10.0-20.0 [facility] Comment on above: Order Comment: [facility] has implemented the eGFR calculation approach that does not have a coefficient for race that conforms to the NKF-ASN Task Force Recommendations. Performed By: #### 4 [id number] #### [facility] [address] [place] [address] 01895 Emmanuel Plata M.D. [id number] Basic metabolic 2000 panelon 03-16-2025 Anion gap [Moles/Vol] 15 mmol/L 10 - 2 0 mmol/L [facility] Calcium [Mass/Vol] 9 mg/dL 8.4 - 10. 2 mg/dL [facility] Chloride [Moles/Vol] 106 mmol/L 98 - 10 8 mmol/L [facility] Creatinine [Mass/Vol] 1.11 mg/dL 0.80 - 1.30 mg/dL [facility] GFR/1.73 sq M.predicted CKD-EPI (S/P/Bld) [Vol rate/Area] 65 - PINF [facility] Comment on above: Estimated GFR was ca lculated using the 2020 CKD-EPI creatinine equation. Glucose [Mass/Vol] 105 mg/dL High 65 - 99 mg/dL [facility] HCO3 [Moles/Vol] 24 mmol/L 21 - 32 mmol/L [facility] Interpretation and review of laboratory results Abnormal [facility] Potassium [Moles/Vol] 4.3 mmol/L 3.5 - 5.1 mmol/L [facility] Sodium [Moles/Vol] 141 mmol/L 135 - 145 mmol/L [facility] Urea nitrogen [Mass/Vol] 20 mg/dL 8 - 25 mg/dL [facility] Urea nitrogen/Creatinine [Mass ratio] 18 mg/mg 10.0 - 20.0 [facility] has implemented the eGFR calculation approach that does not have a coefficient for race that conforms to the NKF-ASN Task Force Recommendations. [facility] Blood type and Indirect anti body screen panel (Bld)on 03-16-2025 ABO and Rh group Nom (Bld) Blood group O Rh(D) positive [facility] Blood group antibody screen Ql Negative [facility] Specimen Expires 03/19/2025 23:59 EST [facility] CBCon 03-16-2025 AUTO NRBC 0.0 % Normal [facility] Comment on above: Performed By: #### 3 0322 #### [facility] [address] [place], [place] [address] Emmanuel Plata M.D. [id number] AUTO NRBC ABS COUNT 0.00 K/mcL Normal 0.00-0.00 [facility] Comment on above: Performed By: #### 4 2825 #### [facility] [address] [place] [address] Emmanuel Plata M.D. [id number] Erythrocyte distribution width (RBC) [Ratio] 13.3 % Normal 11.6-14.8 [facility] Comment on above: Performed By: #### 0 8648 #### [facility] [address] [place], [place] [address] Emmanuel Plata M.D. [id number] Hematocrit (Bld) [Volume fraction] 36.7 % Low 41.0-53.0 [facility] Comment on above: Performed By: #### 5 0123 #### [facility] [address] [place], [place] [address] Emmanuel Plata M.D. [id number] Hemoglobin (Bld) [Mass/Vol] 12.0 g/dL Low 13.5-17.5 [facility] Comment on above: Performed By: #### 8 7197 #### [facility] [address] [place], [place] [address] Emmanuel Plata M.D. [id number] MCH (RBC) [Entitic mass] 29.9 pg Normal 26.0-34.0 [facility] Comment on above: Performed By: #### 4 2165 #### [facility] [address] [place] [address] 33662 Emmanuel Plata M.D. [id number] MCV (RBC) [Entitic vol] 91.3 fL Normal 80.0-100.0 [facility] Comment on above: Performed By: #### 4 6109 #### [facility] [address] [place] [address] 67807 Emmanuel Plata M.D. [id number] MEAN CORPUSCULAR HEMOGLOBIN CONC 32.7 g/dL Normal 31.0-37.0 [facility] Comment on above: Performed By: #### 4 4336 #### [facility] [address] [place], [place] [address] Emmanuel Plata M.D. [id number] Platelet mean volume (Bld) [Entitic vol] 10.1 fL Normal 9.4-12.4 [facility] Comment on above: Performed By: #### 4 9378 #### [facility] [address] [place] [address] 40456 Emmanuel Plata M.D. [id number] Platelets (Bld) [#/Vol] 159 10*3/uL Normal 150-400 [facility] Comment on above: Performed By: #### 4 1581 #### [facility] [address] [place] [address] 92837 Emmanuel Plata M.D. [id number] RBC (Bld) [#/Vol] 4.02 10*6/uL Low 4.50-5.90 [facility] Comment on above: Performed By: #### 4 1712 #### [facility] [address] [place], [place] [id number] Emmanuel Plata M.D. [id number] WBC (Bld) [#/Vol] 4.27 10*3/uL Low 4.50-11.00 [facility] Comment on above: Performed By: #### 4 6848 #### [facility] [address] [address] Emmanuel Plata M.D. [id number] CBC panel Auto (Bld)on 03-16 Erythrocyte distribution width (RBC) [Entitic vol] 13.3 % 11.6 - 14.8 % [facility] Hematocrit (Bld) [Volume fraction] 36.7 % Low 41.0 - 53.0 % [facility] Hemoglobin (Bld) [Mass/Vol] 12 g/dL Low 13.5 - 17.5 g/dL [facility] Interpretation and review of laboratory results Abnormal [facility] MCH (RBC) [Entitic mass] 29.9 pg 26.0 - 34.0 pg [facility] MCHC (RBC) [Mass/Vol] 32.7 g/dL 31.0 - 37.0 g/dL [facility] MCV (RBC) [Entitic vol] 91.3 fL 80.0 - 100.0 fL [facility] Nucleated RBC (Bld) [#/Vol] 0 10*3/uL [facility] Nucleated RBC/100 WBC (Bld) [Ratio] 0 % [facility] Platelet mean volume (Bld) [Entitic vol] 10.1 fL 9.4 - 12.4 fL [facility] Platelets (Bld) [#/Vol] 159 10*3/uL [facility] RBC (Bld) [#/Vol] 4.02 10*6/uL Low [facility] WBC (Bld) [#/Vol] 4.27 10*3/uL Low [facility] INR Coag (PPP) [Relative abi e]on 03-16-2025 PT Coag (PPP) [Time] 14.7 s [facility] During the induction phase of oral anticoagulation, the INR may not reflect the anticoagulation status of the patient. Therapeutic ranges for INR's are: Most clinical situations: INR 2.0-3.0 Mechanical Prosthetic Valve: INR 2.5-3.5 Critical: INR >5.0 [facility] MAGNESIUM LEVELon 03-16-2025 Magnesium [Mass/Vol] 2.3 mg/dL Normal 1.6-2.4 [facility] Comment on above: Performed By: #### 4 [id number] #### [facility] [address] [place] [address] 01369 Emmanuel Plata M.D. [id number] Magnesiumon 03-16-2025 Magnesium [Mass/Vol] 2.3 mg/dL 1.6 - 2 .4 mg/dL [facility] Magnesium [Mass/Vol]on 03-16 Interpretation and review of laboratory results Normal [facility] No Panel InformationOrdered By: Flory Pino on 03-16-2025 Interpretation and review of laboratory results Abnormal [facility] No Panel Informationon 03-16 [facility] PT/INRon 03-16-2025 INR Coag (PPP) [Relative time] 1.1 {INR} 0.8 - 1.1 [facility] INR Coag (PPP) [Relative time] 1.1 {INR} Normal 0.8-1.1 [facility] Comment on above: Order Comment: Rafita denise the induction phase of oral anticoagulation, the INR may not reflect the anticoagulation status of the patient. Therapeutic ranges for INR's are:Most clinical situations: INR 2.0-3.0Mechanical Prosthetic Valve: INR 2.5-3.5Critical: INR >5.0 Performed By: #### 4 [id number] ####[facility] [address] [place] [address] 109[address] Emmanuel Plata M.D. [id number] PT Coag (PPP) [Time] 14.7 s High 11.8-14.3 [facility] Comment on above: Order Comment: Rafita denise the induction phase of oral anticoagulation, the INR may not reflect the anticoagulation status of the patient. Therapeutic ranges for INR's are:Most clinical situations: INR 2.0-3.0Mechanical Prosthetic Valve: INR 2.5-3.5Critical: INR >5.0 Performed By: #### 4 6391 ####[facility] [address] [place] [address] 18599 Emmanuel Plata M.D. [id number] TYPE AND SCREENon 03-16-2025 TYPE AND SCREEN ABORH: O Positive AB SCREEN: Negative EXPIRATION DATE: 03/19/2025 23:59 EST Normal [facility] Comment on above: Performed By: #### 4 [id number] #### [facility] [address] Emmanuel Plata M.D. [id number] US SAPHENOUS VEIN MAPon 02-26 US SAPHENOUS VEIN MAP Patient Info Name: Tristin Powell Age: 85 years : 1940 Gender: Male Exam Date: 03/14/2025 9:26 PM Patient Status: INPATIENT Site Location: [facility] Indications Z01.810 - Encounter for preprocedural cardiovascular examination Procedure Description 84543 Duplex examination using B-mode, color and spectral Doppler of extremity veins including responses to compression and other maneuvers; complete bilateral study. Binder Technician: Cristian Ellis RVT, [facility] Staff Ordering Physician: Beena Barraza Conclusions * [...] Hein MD, RPVI on 03/16/2025 11:15 AM [facility] US UE VEIN MAPon 03-16-2025 US UE VEIN MAP Patient Info Name: Tristin Powell Age: 85 years : 1940 Gender: Male Exam Date: 03/14/2025 9:20 PM Patient Status: INPATIENT Site Location: [facility] Indications Z01.810 - Encounter for preprocedural cardiovascular examination Procedure Description 43896 Duplex examination using B-mode, color and spectral Doppler of extremity veins including responses to compression and other maneuvers; complete bilateral study. Binder Technician: Cristian Ellis RVT, [facility] Staff Ordering Physician: Beena Celis * Right [...] by Aaron Hein MD, NATANAEL on 03/16/2025 11:14 AM [facility] Ultrasound Saphenous vein ma ppingon 03-16-2025 Patient Info Name: Tristin Powell Age: 85 years : 1940 Gender: Male Exam Date: 03/14/2025 9:26 PM Patient Status: INPATIENT Site Location: [facility] Indications Z01.810 - Encounter for preprocedural cardiovascular examination Procedure Description 23620 Duplex examination using B-mode, color and spectral Doppler of extremity veins including responses to compression and other maneuvers; complete bilateral study. Binder Technician: Cristian Ellis RVT, [facility] Staff Ordering Physician: Beena Barraza Conclusions * [...] Hein MD, NATANAEL on 03/16/2025 11:15 AM [facility] Aaron Guillen M D - 03/16/2025 Patient Info Name: Tristin Powell Age: 85 years : 1940 Gender: Male Exam Date: 03/14/2025 9:26 PM Patient Status: INPATIENT Site Location: [facility] Indications Z01.810 - Encounter for preprocedural cardiovascular examination Procedure Description 30480 Duplex examination using B-mode, color and spectral Doppler of extremity veins including responses to compression and other maneuvers; complete bilateral study. Binder Technician: Cristian Ellis RVT, [facility] Staff Ordering Physician: Beena Barraza Conclusions * [...] RPVI on 03/16/2025 11:15 AM [facility] Upper extremity vein mapping on 03-16-2025 Patient Info Name: Tristin Powell Age: 85 years : 1940 Gender: Male Exam Date: 03/14/2025 9:20 PM Patient Status: INPATIENT Site Location: [facility] Indications Z01.810 - Encounter for preprocedural cardiovascular examination Procedure Description 99256 Duplex examination using B-mode, color and spectral Doppler of extremity veins including responses to compression and other maneuvers; complete bilateral study. Binder Technician: Cristian Ellis RVT, [facility] Staff Ordering Physician: Beena Barraza Conclusions * [...] Hein MD, RPVI on 03/16/2025 11:14 AM [facility] Aaron Esposito M D - 03/16/2025 Patient Info Name: Tristin Powell Age: 85 years : 1940 Gender: Male Exam Date: 03/14/2025 9:20 PM Patient Status: INPATIENT Site Location: [facility] Indications Z01.810 - Encounter for preprocedural cardiovascular examination Procedure Description 43126 Duplex examination using B-mode, color and spectral Doppler of extremity veins including responses to compression and other maneuvers; complete bilateral study. Binder Technician: Cristian Ellis RVT, [facility] Staff Ordering Physician: Beena Barraza Conclusions * [...] RPVI on 03/16/2025 11:14 AM [facility] APTTon 03-15-2025 aPTT Coag (Bld) [Time] 33 s [facility] aPTT Coag (Bld) [Time] 33 s Normal 23-34 [facility] Comment on above: Order Comment: Thera peutic range for APTT's is 68 - 104 seconds Performed By: #### 4 5113 ####[facility] [address] [place] [address] 42864 Emmanuel Plata M.D. [id number] BASIC METABOLIC PANELon 02-25 Anion gap [Moles/Vol] 13 mmol/L Normal 10-20 [facility] Comment on above: Order Comment: [facility] has implemented the eGFR calculation approach that does not have a coefficient for race that conforms to the NKF-ASN Task Force Recommendations. Performed By: #### 4 [id number] #### [facility] [address] [place] [address] 47319 Emmanuel Plata M.D. [id number] Calcium [Mass/Vol] 8.9 mg/dL Normal 8.4-10.2 [facility] Comment on above: Order Comment: [facility] has implemented the eGFR calculation approach that does not have a coefficient for race that conforms to the NKF-ASN Task Force Recommendations. Performed By: #### 4 [id number] #### [facility] [address] [place] [address] 59[address] Emmanuel Plata M.D. [id number] Chloride [Moles/Vol] 108 mmol/L Normal 98-108 [facility] Comment on above: Order Comment: [facility] has implemented the eGFR calculation approach that does not have a coefficient for race that conforms to the NKF-ASN Task Force Recommendations. Performed By: #### 4 [id number] #### [facility] [address] [place] [address] 46328 Emmanuel Plata M.D. [id number] Creatinine [Mass/Vol] 1.12 mg/dL Normal 0.80-1.30 [facility] Comment on above: Order Comment: [facility] has implemented the eGFR calculation approach that does not have a coefficient for race that conforms to the NKF-ASN Task Force Recommendations. Performed By: #### 4 [id number] #### [facility] [address] [place] [address] 65[address] Emmanuel Plata M.D. [id number] EGFR 64 mL/min/1.73 m2 Normal >=60 [facility] Comment on above: Order Comment: [facility] has implemented the eGFR calculation approach that does not have a coefficient for race that conforms to the NKF-ASN Task Force Recommendations. Result Comment: Maria Del Carmen mated GFR was calculated using the 2020 CKD-EPI creatinine equation. Performed By: #### 4 [id number] #### [facility] [address] [place] [address] 45068 Emmanuel Plata M.D. [id number] Glucose [Mass/Vol] 139 mg/dL High 65-99 [facility] Comment on above: Order Comment: [facility] has implemented the eGFR calculation approach that does not have a coefficient for race that conforms to the NKF-ASN Task Force Recommendations. Performed By: #### 4 [id number] #### [facility] [address] [place] [address] 18396 Emmanuel Plata M.D. [id number] HCO3 (Bld) [Moles/Vol] 24 mmol/L Normal 21-32 [facility] Comment on above: Order Comment: [facility] has implemented the eGFR calculation approach that does not have a coefficient for race that conforms to the NKF-ASN Task Force Recommendations. Performed By: #### 4 [id number] #### [facility] [address] [place] [address] 65[address] Emmanuel Plata M.D. [id number] Potassium [Moles/Vol] 3.9 mmol/L Normal 3.5-5.1 [facility] Comment on above: Order Comment: [facility] has implemented the eGFR calculation approach that does not have a coefficient for race that conforms to the NKF-ASN Task Force Recommendations. Performed By: #### 4 [id number] #### [facility] [address] [place] [address] 601[address] Emmanuel Plata M.D. [id number] Sodium [Moles/Vol] 141 mmol/L Normal 135-145 [facility] Comment on above: Order Comment: [facility] has implemented the eGFR calculation approach that does not have a coefficient for race that conforms to the NKF-ASN Task Force Recommendations. Performed By: #### 4 [id number] #### [facility] [address] [place] [address] 97[address] Emmanuel Plata M.D. [id number] Urea nitrogen [Mass/Vol] 19 mg/dL Normal 8-25 [facility] Comment on above: Order Comment: [facility] has implemented the eGFR calculation approach that does not have a coefficient for race that conforms to the NKF-ASN Task Force Recommendations. Performed By: #### 4 [id number] #### [facility] [address] [place] [address] 62866 Emmanuel Plata M.D. [id number] Urea nitrogen/Creatinine [Mass ratio] 17.0 mg/mg Normal 10.0-20.0 [facility] Comment on above: Order Comment: [facility] has implemented the eGFR calculation approach that does not have a coefficient for race that conforms to the NKF-ASN Task Force Recommendations. Performed By: #### 4 [id number] #### [facility] [address] [place] [address] 13653 Emmanuel Plata M.D. [id number] Basic metabolic 2000 panelon 03-15-2025 Anion gap [Moles/Vol] 13 mmol/L 10 - 2 0 mmol/L [facility] Calcium [Mass/Vol] 8.9 mg/dL 8.4 - 10. 2 mg/dL [facility] Chloride [Moles/Vol] 108 mmol/L 98 - 10 8 mmol/L [facility] Creatinine [Mass/Vol] 1.12 mg/dL 0.80 - 1.30 mg/dL [facility] GFR/1.73 sq M.predicted CKD-EPI (S/P/Bld) [Vol rate/Area] 64 - PINF [facility] Comment on above: Estimated GFR was ca lculated using the 2020 CKD-EPI creatinine equation. Glucose [Mass/Vol] 139 mg/dL High 65 - 99 mg/dL [facility] HCO3 [Moles/Vol] 24 mmol/L 21 - 32 mmol/L [facility] Interpretation and review of laboratory results Abnormal [facility] Potassium [Moles/Vol] 3.9 mmol/L 3.5 - 5.1 mmol/L [facility] Sodium [Moles/Vol] 141 mmol/L 135 - 145 mmol/L [facility] Urea nitrogen [Mass/Vol] 19 mg/dL 8 - 25 mg/dL [facility] Urea nitrogen/Creatinine [Mass ratio] 17 mg/mg 10.0 - 20.0 [facility] has implemented the eGFR calculation approach that does not have a coefficient for race that conforms to the NKF-ASN Task Force Recommendations. [facility] CBCon 03-15-2025 AUTO NRBC 0.0 % Normal [facility] Comment on above: Performed By: #### 4 [id number] #### [facility] [address] [place], [place] [id number] Emmanuel Plata M.D. [id number] AUTO NRBC ABS COUNT 0.00 K/mcL Normal 0.00-0.00 [facility] Comment on above: Performed By: #### 4 [id number] #### [facility] [address] [place], [place] [id number] Emmanuel Plata M.D. [id number] Erythrocyte distribution width (RBC) [Ratio] 13.4 % Normal 11.6-14.8 [facility] Comment on above: Performed By: #### 4 6109 #### [facility] [address] [place], [place] [id number] Emmanuel Plata M.D. [id number] Hematocrit (Bld) [Volume fraction] 34.9 % Low 41.0-53.0 [facility] Comment on above: Performed By: #### 4 [id number] #### [facility] [address] [place], [place] [id number] Emmanuel Plata M.D. [id number] Hemoglobin (Bld) [Mass/Vol] 11.7 g/dL Low 13.5-17.5 [facility] Comment on above: Performed By: #### 4 [id number] #### [facility] [address] [place], [place] [id number] Emmanuel Plata M.D. [id number] MCH (RBC) [Entitic mass] 30.4 pg Normal 26.0-34.0 [facility] Comment on above: Performed By: #### 4 [id number] #### [facility] [address] [place] [address] Emmanuel Plata M.D. [id number] MCV (RBC) [Entitic vol] 90.6 fL Normal 80.0-100.0 [facility] Comment on above: Result Comment: Repe ated AND verified Performed By: #### 4 [id number] #### [facility] [address] [place] [address] Emmanuel Plata M.D. [id number] MEAN CORPUSCULAR HEMOGLOBIN CONC 33.5 g/dL Normal 31.0-37.0 [facility] Comment on above: Result Comment: Repe ated AND verified Performed By: #### 4 [id number] #### [facility] [address] [place], [place] [id number] Emmanuel Plata M.D. [id number] Platelet mean volume (Bld) [Entitic vol] 9.9 fL Normal 9.4-12.4 [facility] Comment on above: Performed By: #### 4 [id number] #### [facility] [address] [place], [place] [id number] Emmanuel Plata M.D. [id number] Platelets (Bld) [#/Vol] 144 10*3/uL Low 150-400 [facility] Comment on above: Performed By: #### 4 [id number] #### [facility] [address] [place], [place] [id number] Emmanuel Plata M.D. [id number] RBC (Bld) [#/Vol] 3.85 10*6/uL Low 4.50-5.90 [facility] Comment on above: Performed By: #### 4 [id number] #### [facility] [address] [place] [address] 69259 Emmanuel Plata M.D. [id number] WBC (Bld) [#/Vol] 3.23 10*3/uL Low 4.50-11.00 [facility] Comment on above: Performed By: #### 4 [id number] #### [facility] [address] [place] [address] 48837 Emmanuel Plata M.D. [id number] CBC panel Auto (Bld)on 03-15 Erythrocyte distribution width (RBC) [Entitic vol] 13.4 % 11.6 - 14.8 % [facility] Hematocrit (Bld) [Volume fraction] 34.9 % Low 41.0 - 53.0 % [facility] Hemoglobin (Bld) [Mass/Vol] 11.7 g/dL Low 13.5 - 17.5 g/dL [facility] Interpretation and review of laboratory results Abnormal [facility] MCH (RBC) [Entitic mass] 30.4 pg 26.0 - 34.0 pg [facility] MCHC (RBC) [Mass/Vol] 33.5 g/dL 31.0 - 37.0 g/dL [facility] Comment on above: Repeated & verified MCV (RBC) [Entitic vol] 90.6 fL 80.0 - 100.0 fL [facility] Comment on above: Repeated & verified Nucleated RBC (Bld) [#/Vol] 0 10*3/uL [facility] Nucleated RBC/100 WBC (Bld) [Ratio] 0 % [facility] Platelet mean volume (Bld) [Entitic vol] 9.9 fL 9.4 - 12.4 fL [facility] Platelets (Bld) [#/Vol] 144 10*3/uL Low [facility] RBC (Bld) [#/Vol] 3.85 10*6/uL Low [facility] ealth WBC (Bld) [#/Vol] 3.23 10*3/uL Low [facility] eah [facility] ECG 12 Leadon 03-15-2025 Atrial Rate 83 BPM [facility] P [place] 62 degrees [facility] P-R Interval 182 ms [facility] Q-T Interval 400 ms [facility] QRS Duration 92 ms [facility] QTC Calculation (Bezet) 470 ms [facility] R [place] 35 degrees [facility] T [place] 41 degrees [facility] Ventricular Rate 83 BPM [facility] Sinus rhythm with Premature supraventricular complexes Otherwise normal ECG Confirmed by OTILIO MONTOYA M.D. ([id number]) on 03/15/2025 6:58:39 AM [facility] HEMOGLOBIN AND HEMATOCRITon 03-15-2025 Hematocrit (Bld) [Volume fraction] 31.0 % Low 41.0-53.0 [facility] Comment on above: Performed By: #### 4 [id number] #### [facility] [address] [place] [address] 87049 Emmanuel Plata M.D. [id number] Hemoglobin (Bld) [Mass/Vol] 12.4 g/dL Low 13.5-17.5 [facility] Comment on above: Performed By: #### 4 [id number] #### [facility] [address] [place] [address] 79917 Emmanuel Plata M.D. [id number] Hemoglobin and Hematocrit pa franklin (Bld)on 03-15-2025 Hematocrit (Bld) [Volume fraction] 31 % Low 41.0 - 53.0 % [facility] Hemoglobin (Bld) [Mass/Vol] 12.4 g/dL Low 13.5 - 17.5 g/dL [facility] Interpretation and review of laboratory results Abnormal [facility] MAGNESIUM LEVELon 03-15-2025 Magnesium [Mass/Vol] 2.2 mg/dL Normal 1.6-2.4 [facility] Comment on above: Performed By: #### 4 [id number] #### [facility] [address] [place] [address] 94516 Emmanuel Plata M.D. [id number] Magnesiumon 03-15-2025 Magnesium [Mass/Vol] 2.2 mg/dL 1.6 - 2 .4 mg/dL [facility] Magnesium [Mass/Vol]on 03-15 Interpretation and review of laboratory results Normal [facility] No Panel Informationon 03-15 [facility] Repeat EKGon 03-15-2025 Atrial Rate 93 BPM [facility] P-R Interval 170 ms [facility] Q-T Interval 404 ms [facility] QRS Duration 94 ms [facility] QTC Calculation (Bezet) 502 ms [facility] R [place] 49 degrees [facility] T [place] 44 degrees [facility] Ventricular Rate 93 BPM [facility] Sinus rhythm with frequent Premature ventricular complexes Prolonged QT Abnormal ECG Confirmed by OTILIO MONTOYA M.D. ([id number]) on 03/15/2025 7:01:22 AM MUSE [facility] aPTT Coag (Bld) [Time]on Interpretation and review of laboratory results Normal [facility] Therapeutic range fo r APTT's is 68 - 104 seconds [facility] Basic metabolic 1998 panelOr dered By: Regina Dillon on 03-14-2025 Anion gap [Moles/Vol] 16 mmol/L 10 - 2 0 mmol/L [facility] Chloride [Moles/Vol] 102 mmol/L 98 - 10 8 mmol/L [facility] Creatinine [Mass/Vol] 1.12 mg/dL 0.80 - 1.30 mg/dL [facility] GFR/1.73 sq M.predicted CKD-EPI (S/P/Bld) [Vol rate/Area] 64 - PINF [facility] Comment on above: Estimated GFR was ca lculated using the 2020 CKD-EPI creatinine equation. Glucose [Mass/Vol] 100 mg/dL High 65 - 99 mg/dL [facility] HCO3 [Moles/Vol] 25 mmol/L 21 - 32 mmol/L [facility] Interpretation and review of laboratory results Abnormal [facility] Potassium [Moles/Vol] 3.8 mmol/L 3.5 - 5.1 mmol/L [facility] Sodium [Moles/Vol] 139 mmol/L 135 - 145 mmol/L [facility] Urea nitrogen [Mass/Vol] 20 mg/dL 8 - 25 mg/dL [facility] Urea nitrogen/Creatinine [Mass ratio] 17.9 mg/mg 10.0 - 20.0 [facility] has implemented the eGFR calculation approach that does not have a coefficient for race that conforms to the NKF-ASN Task Force Recommendations. [facility] CBC Auto Differentialon 02-25 Basophils (Bld) [#/Vol] 0.02 10*3/uL [facility] Basophils/100 WBC (Bld) 0.6 % [facility] Eosinophils (Bld) [#/Vol] 0.12 10*3/uL [facility] Eosinophils/100 WBC (Bld) 3.4 % [facility] Erythrocyte distribution width (RBC) [Entitic vol] 13.5 % 11.6 - 14.8 % [facility] Hematocrit (Bld) [Volume fraction] 39.3 % Low 41.0 - 53.0 % [facility] Hemoglobin (Bld) [Mass/Vol] 13.2 g/dL Low 13.5 - 17.5 g/dL [facility] Immature granulocytes (Bld) [#/Vol] 0.01 10*3/uL [facility] Immature granulocytes/100 WBC (Bld) 0.3 % [facility] Comment on above: The IG parameter is the percentage of metamyelocytes, myelocytes and promyelocytes. An immature granulocyte count (IG) of 1% or more suggests the possibility of infection, an IG count of 3% is very likely related to an infection. Interpretation and review of laboratory results Abnormal [facility] Lymphocytes (Bld) [#/Vol] 0.65 10*3/uL Low [facility] Lymphocytes/100 WBC (Bld) 18.6 % [facility] MCH (RBC) [Entitic mass] 30.4 pg 26.0 - 34.0 pg [facility] MCHC (RBC) [Mass/Vol] 33.6 g/dL 31.0 - 37.0 g/dL [facility] MCV (RBC) [Entitic vol] 90.6 fL 80.0 - 100.0 fL [facility] Monocytes (Bld) [#/Vol] 0.81 10*3/uL [facility] Monocytes/100 WBC (Bld) 23.1 % [facility] Neutrophils (Bld) [#/Vol] 1.89 10*3/uL [facility] Neutrophils/100 WBC (Bld) 54 % [facility] Comment on above: Peripheral smear rev iewed manually Nucleated RBC (Bld) [#/Vol] 0 10*3/uL [facility] Nucleated RBC/100 WBC (Bld) [Ratio] 0 % [facility] Platelet mean volume (Bld) [Entitic vol] 9.3 fL Low 9.4 - 12.4 fL [facility] Platelets (Bld) [#/Vol] 173 10*3/uL [facility] RBC (Bld) [#/Vol] 4.34 10*6/uL Low [facility] ealth WBC (Bld) [#/Vol] 3.5 10*3/uL Low [place] [facility] CBC WITH AUTO DIFFERENTIALon 03-14-2025 AUTO NRBC 0.0 % Normal [facility] Comment on above: Performed By: #### 4 [id number] #### [facility] [address] [place] [address] Emmanuel Plata M.D. [id number] AUTO NRBC ABS COUNT 0.00 K/mcL Normal 0.00-0.00 [facility] Comment on above: Performed By: #### 4 [id number] #### [facility] [address] [place] [address] Emmanuel Plata M.D. [id number] BASOPHILS ABSOLUTE COUNT 0.02 K/mcL Normal 0.00-0.30 [facility] Comment on above: Performed By: #### 4 [id number] #### [facility] [address] [place] [address] Emmanuel Plata M.D. [id number] Basophils/100 WBC (Bld) 0.6 % Normal [facility] Comment on above: Performed By: #### 4 [id number] #### [facility] [address] [place] [address] Emmanuel Plata M.D. [id number] Eosinophils (Bld) [#/Vol] 0.12 10*3/uL Normal 0.00-0.50 [facility] [facility] Comment on above: Performed By: #### 4 [id number] #### [facility] [address] [place] [address] Emmanuel Plata M.D. [id number] Eosinophils/100 WBC (Bld) 3.4 % [facility] Comment on above: Performed By: #### 4 [id number] #### [facility] [address] [place] [address] Emmanuel Plata M.D. [id number] Erythrocyte distribution width (RBC) [Ratio] 13.5 % Normal 11.6-14.8 [facility] Comment on above: Performed By: #### 4 [id number] #### [facility] [address] [place] [address] Emmanuel Plata M.D. [id number] Hematocrit (Bld) [Volume fraction] 39.3 % Low 41.0-53.0 [facility] Comment on above: Performed By: #### 4 [id number] #### [facility] [address] [place] [address] Emmanuel Plata M.D. [id number] Hemoglobin (Bld) [Mass/Vol] 13.2 g/dL Low 13.5-17.5 [facility] Comment on above: Performed By: #### 4 [id number] #### [facility] [address] [place] [address] Emmanuel Plata M.D. [id number] IG ABSOLUTE 0.01 K/mcL Normal 0.00-0.30 [facility] Comment on above: Performed By: #### 4 [id number] #### [facility] [address] [place] [address] Emmanuel Plata M.D. [id number] IG PERCENT 0.30 % Normal [facility] Comment on above: Result Comment: The IG parameter is the percentage of metamyelocytes, myelocytes and promyelocytes. An immature granulocyte count (IG) of 1% or more suggests the possibility of infection, an IG count of 3% is very likely related to an infection. Performed By: #### 4 [id number] #### [facility] [address] [place] [address] Emmanuel Plata M.D. [id number] Lymphocytes (Bld) [#/Vol] 0.65 10*3/uL Low 0.90-4.00 [facility] Comment on above: Performed By: #### 4 6109 #### [facility] [address] [place], [place] [id number] Emmanuel Plata M.D. [id number] Lymphocytes/100 WBC (Bld) 18.6 % Normal [facility] Comment on above: Performed By: #### 4 [id number] #### [facility] [address] [place] [address] Emmanuel Plata M.D. [id number] MCH (RBC) [Entitic mass] 30.4 pg Normal 26.0-34.0 [facility] Comment on above: Performed By: #### 4 [id number] #### [facility] [address] [place] [address] Emmanuel Plata M.D. [id number] MCV (RBC) [Entitic vol] 90.6 fL Normal 80.0-100.0 [facility] Comment on above: Performed By: #### 4 [id number] #### [facility] [address] [place], [place] [id number] Emmanuel Plata M.D. [id number] MEAN CORPUSCULAR HEMOGLOBIN CONC 33.6 g/dL Normal 31.0-37.0 [facility] Comment on above: Performed By: #### 4 [id number] #### [facility] [address] [place], [place] [id number] Emmanuel Plata M.D. [id number] Monocytes (Bld) [#/Vol] 0.81 10*3/uL Normal 0.30-0.90 [facility] Comment on above: Performed By: #### 4 6102 #### [facility] [address] [place], [place] [id number] Emmanuel Plata M.D. [id number] Monocytes/100 WBC (Bld) 23.1 % Normal [facility] Comment on above: Performed By: #### 4 6106 #### [facility] [address] [place] [address] Emmanuel Plata M.D. [id number] NEUTROPHILS ABSOLUTE COUNT 1.89 K/mcL Normal 1.70-7.00 [facility] Comment on above: Performed By: #### 4 6109 #### [facility] [address] [place] [address] Emmanuel Plata M.D. [id number] Neutrophils/100 WBC (Bld) 54.0 % Normal [facility] Comment on above: Result Comment: Edna pheral smear reviewed manually Performed By: #### 4 [id number] #### [facility] [address] [place], [place] [id number] Emmanuel Plata M.D. [id number] Platelet mean volume (Bld) [Entitic vol] 9.3 fL Low 9.4-12.4 [facility] Comment on above: Performed By: #### 4 [id number] #### [facility] [address] [place], [place] [id number] Emmanuel Plata M.D. [id number] Platelets (Bld) [#/Vol] 173 10*3/uL Normal 150-400 [facility] Comment on above: Performed By: #### 4 [id number] #### [facility] [address] [place] [address] Emmanuel Plata M.D. [id number] RBC (Bld) [#/Vol] 4.34 10*6/uL Low 4.50-5.90 [facility] Comment on above: Performed By: #### 4 6109 #### [facility] [address] [place] [address] Emmanuel Plata M.D. [id number] WBC (Bld) [#/Vol] 3.50 10*3/uL Low 4.50-11.00 [facility] Comment on above: Performed By: #### 4 6109 #### [facility] [address] [place] [address] Emmanuel Plata M.D. [id number] CHEM 03-14-2025 Anion gap [Moles/Vol] 16 mmol/L Normal 10-20 [facility] Comment on above: Order Comment: [facility] has implemented the eGFR calculation approach that does not have a coefficient for race that conforms to the NKF-ASN Task Force Recommendations. Performed By: #### 4 [id number] #### [facility] [address] [place] [address] Emmanuel Plata M.D. [id number] Chloride [Moles/Vol] 102 mmol/L Normal 98-108 [facility] Comment on above: Order Comment: [facility] has implemented the eGFR calculation approach that does not have a coefficient for race that conforms to the NKF-ASN Task Force Recommendations. Performed By: #### 4 [id number] #### [facility] [address] [place] [address] Emmanuel Plata M.D. [id number] Creatinine [Mass/Vol] 1.12 mg/dL Normal 0.80-1.30 [facility] Comment on above: Order Comment: [facility] has implemented the eGFR calculation approach that does not have a coefficient for race that conforms to the NKF-ASN Task Force Recommendations. Performed By: #### 4 [id number] #### [facility] [address] [place] [address] Emmanuel Plata M.D. [id number] EGFR 64 mL/min/1.73 m2 Normal >=60 [facility] Comment on above: Order Comment: [facility] has implemented the eGFR calculation approach that does not have a coefficient for race that conforms to the NKF-ASN Task Force Recommendations. Result Comment: Maria Del Carmen mated GFR was calculated using the 2020 CKD-EPI creatinine equation. Performed By: #### 4 [id number] #### [facility] [address] [place] [address] Emmanuel Plata M.D. [id number] Glucose [Mass/Vol] 100 mg/dL High 65-99 [facility] Comment on above: Order Comment: [facility] has implemented the eGFR calculation approach that does not have a coefficient for race that conforms to the NKF-ASN Task Force Recommendations. Performed By: #### 4 [id number] #### [facility] [address] [place] [address] Emmanuel Plata M.D. [id number] HCO3 (Bld) [Moles/Vol] 25 mmol/L Normal 21-32 [facility] Comment on above: Order Comment: [facility] has implemented the eGFR calculation approach that does not have a coefficient for race that conforms to the NKF-ASN Task Force Recommendations. Performed By: #### 4 [id number] #### [facility] [address] [place], [place] [id number] Emmanuel Plata M.D. [id number] Potassium [Moles/Vol] 3.8 mmol/L Normal 3.5-5.1 [facility] Comment on above: Order Comment: [facility] has implemented the eGFR calculation approach that does not have a coefficient for race that conforms to the NKF-ASN Task Force Recommendations. Performed By: #### 4 [id number] #### [facility] [address] [place] [address] Emmanuel Plata M.D. [id number] Sodium [Moles/Vol] 139 mmol/L Normal 135-145 [facility] Comment on above: Order Comment: [facility] has implemented the eGFR calculation approach that does not have a coefficient for race that conforms to the NKF-ASN Task Force Recommendations. Performed By: #### 4 [id number] #### [facility] [address] [place] [address] Emmanuel Plata M.D. [id number] Urea nitrogen [Mass/Vol] 20 mg/dL Normal 8-25 [facility] Comment on above: Order Comment: [facility] has implemented the eGFR calculation approach that does not have a coefficient for race that conforms to the NKF-ASN Task Force Recommendations. Performed By: #### 4 [id number] #### [facility] [address] [place], [place] [address] Emmanuel Plata M.D. [id number] Urea nitrogen/Creatinine [Mass ratio] 17.9 mg/mg Normal 10.0-20.0 [facility] Comment on above: Order Comment: [facility] has implemented the eGFR calculation approach that does not have a coefficient for race that conforms to the NKF-ASN Task Force Recommendations. Performed By: #### 4 [id number] #### [facility] [address] [place], [place] [address] Emmanuel Plata M.D. [id number] CONSULTon 03-14-2025 CONSULT -- Attestation signed by Ben Hahn MD at 03/14/2025 4:44 PM Interventional & Peripheral Vascular Cardiology Tristin Powell is a 85 y.o. male with a past medical history significant for CAD with prior CABG, hypertension, stage III CKD, hyperlipidemia, heart failure with preserved ejection fraction, paroxysmal atrial fibrillation, and advanced PAD who presents with [place] 4 critical limb threatening ischemia of the [...] He underwent angiography 2 days ago in [place] where he was found to have progressive [...] Arthritis Avascular necrosis of bone of hip ([facility]) Claudication COPD (chronic obstructive pulmonary disease) ([facility]) Coronary artery disease Herpes zoster Hyperlipidemia Hypertension PAD (peripheral artery disease) ([facility]) 01/21/2022 Posterior tibial tendinitis of right leg 11/07/2022 Prostate cancer ([facility]) Vascular disease Allergies: Doxycycline and Gabapentin Current [...] artery as it enters the foot. Impression: Deann 4 critical limb threatening ischemia Advanced peripheral [...] vascular surgery colleagues I personally performed a [id number]-[id number] diagnostic evaluation on this patient on the [...] 0.5 mg 0.5 mg Intravenous Q3H PRN ChaseMuna perez MD naloxone (NARCAN) injection 0.1 mg 0.1 mg Intravenous PRN ChaseMuna denise MD And naloxone (NARCAN) injection 0.4 mg 0.4 mg Intravenous PRN ChaseMuna MD ondansetron (ZOFRAN) injection 4 mg 4 mg Intravenous Q6H (more content not included)... Normal [facility] CONSULT -- Attestation signed by Mohsen Sarabia MD at 03/16/2025 10:33 AM Patient seen and examined. I have personally reviewed all pertinent labs, radiological studies and records. I have personally examined the patient and agree with resident/SHRUB GROWER/PA assessment and plan with the following additional [...] s/p left fem to peroneal bypass (2019, Monty), left TMA who presented to [facility] on 03/14/2025 with worsening RLE pain and discoloration. Arterial Duplex (03/14/25): 50-99% stenosis in the right mid SFA YAMILE's (03/14/25): Right YAMILE is 0.50. Left YAMILE is 0.55. CTLI IV Aortic Stenosis -Patient w/ notable history of PAD s/p left fem to peroneal bypass (2019, Monty) p/w RLE rest pain x 3 days. [...] Beena Barraza MD General Surgery Resident, PGY-2 [facility] Please contact surgical general internal medicine doctor physician compensation analyst 5PM-6AM and weekends - #[phone] AZS Pager - #[phone] Admitted with these risk variables:None. Please see [...] Arthritis Avascular necrosis of bone of hip ([facility]) Claudication COPD (chronic obstructive pulmonary disease) ([facility]) Coronary artery disease Herpes zoster Hyperlipidemia Hypertension PAD (peripheral artery disease) ([facility]) 01/21/2022 Posterior tibial tendinitis of right leg 11/07/2022 Prostate cancer ([facility]) Vascular disease Past Surgical History: Procedure Laterality Date 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/08/2018 Procedure: LEFT MIDFOOT AMPUTATION; Surgeon: Flynn Mann DPM; Location: [facility] OR; Service: Podiatry ANKLE SURGERY Left BYPASS PERONEAL FEMORAL Right 09/07/2018 Procedure: BYPASS PERONEAL FEMORAL, RIGHT SAPHENOUS VEIN HARVEST, COMPLETION ANGIOGRAM; Surgeon: Mohsen Sarabia MD; Location: [facility] NEURO OR; Service: Cardiovascular CARDIAC CATHETERIZATION Left 09/05/2018 Procedure: Angio Lower Extremity; Surgeon: Ben Hahn MD; Location: [facility] TELEVISION CABINET FINISHER; Service: Cardiovascular CARDIAC SURGERY 2017 triple bypass EGD N/A 10/10/2018 Procedure: ESOPHAGOGASTRODUODENOS COPY; Surgeon: Ben Jensen MD; [place] [facility] [place] Service: Gastroenterology EYE SURGERY Right 2015 [...] rise Extremiti (more content not included)... Normal [facility] ED Prov Noteon 03-14-2025 ED Prov Note ED PROVIDER NOTE [facility] Patient Name: Tristin Powell Age: [...] Course User Index [EK] Elaine Macdonald MD MDM Data: I saw and evaluated the patient. [...] 113.4 kg (250 lb) - Refer to [facility] section above for additional physical exam data. [...] - Avascular necrosis of bone of hip (HCC) - Claudication - COPD (chronic obstructive pulmonary disease) ([facility]) - Coronary artery disease - Herpes zoster - Hyperlipidemia - Hypertension - PAD (peripheral artery disease) ([facility]) 01/21/2022 - Posterior tibial tendinitis of right leg 11/07/2022 - Prostate cancer (HCC) - Vascular disease Past Surgical History: Procedure Laterality Date - 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/08/2018 Procedure: LEFT MIDFOOT AMPUTATION; Surgeon: Flynn Mann DPM; Location: [facility] OR; Service: Podiatry - ANKLE SURGERY Left - BYPASS PERONEAL FEMORAL Right 09/07/2018 Procedure: BYPASS PERONEAL FEMORAL, RIGHT SAPHENOUS VEIN HARVEST, COMPLETION ANGIOGRAM; Surgeon: Mohsen Sarabia MD; Location: [facility] NEURO OR; Service: Cardiovascular - CARDIAC CATHETERIZATION Left 09/05/2018 Procedure: Angio Lower Extremity; Surgeon: Ben Hahn MD; Location: [facility] TELEVISION CABINET FINISHER; Service: Cardiovascular - CARDIAC SURGERY 2017 triple bypass - EGD N/A 10/10/2018 Procedure: ESOPHAGOGASTRODUODENO (more content not included)... Normal [facility] Gold Topo 03-14-2025 Extra Tube Hold for add-ons. [facility] Comment on above: Auto resulted. [facility] Friedman Topon 03-14-2025 Extra Tube Hold for add-ons. [facility] Comment on above: Auto resulted. INR Coag (PPP) [Relative abi e]on 03-14-2025 Interpretation and review of laboratory results Abnormal [facility] PT Coag (PPP) [Time] 14.6 s [facility] During the induction phase of oral anticoagulation, the INR may not reflect the anticoagulation status of the patient. Therapeutic ranges for INR's are: Most clinical situations: INR 2.0-3.0 Mechanical Prosthetic Valve: INR 2.5-3.5 Critical: INR >5.0 [facility] No Panel Informationon 03-14 [facility] PT/INRon 03-14-2025 INR Coag (PPP) [Relative time] 1.1 {INR} 0.8 - 1.1 [facility] INR Coag (PPP) [Relative time] 1.1 {INR} Normal 0.8-1.1 [facility] Comment on above: Order Comment: Thera peutic range for APTT's is 68 - 104 seconds Performed By: #### 4 [id number] #### [facility] [address] [place] [address] Emmanuel Plata M.D. [id number] PT Coag (PPP) [Time] 14.6 s High 11.8-14.3 [facility] Comment on above: Order Comment: Thera peutic range for APTT's is 68 - 104 seconds Performed By: #### 4 [id number] #### [facility] [address] [address] Emmanuel Plata M.D. [id number] US ANKLE/BRACHIAL INDICES EX TREMITY LIMITEDon 03-14-2025 US ANKLE/BRACHIAL INDICES EXTREMITY LIMITED Patient Info Name: Tristin Powell Age: 85 years : 1940 Gender: Male Exam Date: 03/14/2025 8:20 AM Patient Status: OUTPATIENT Site Location: [facility] Indications I73.9 - Peripheral vascular disease, unspecified Procedure Description 59993 Limited bilateral noninvasive physiologic studies of upper or lower extremity arteries with bidirectional Doppler/PVR waveform analysis at 1-2 levels. Binder Technician: Ernestina Campos RVT, [facility] Staff Ordering Physician: Mohsen Sarabia MD, RPVI [...] Segmental BP RIGHT Brachial A mmH RIGHT NEWS CONTENT SPECIALIST mmH RIGHT NEWS CONTENT SPECIALIST Index: 0.31 RIGHT DPA mmH RIGHT DPA Index: 0.50 RIGHT Digit mmH RIGHT YAMILE Index: 0.50 RIGHT TBI Index: 0.00 LEFT Brachial A mmH LEFT NEWS CONTENT SPECIALIST Index: 0.40 LEFT NEWS CONTENT SPECIALIST mmH LEFT DPA Index: 0.55 LEFT DPA mmH LEFT YAMILE Index: 0.55 Doppler RIGHT NEWS CONTENT SPECIALIST Waveform: Monophasic RIGHT DPA Waveform: Monophasic LEFT NEWS CONTENT SPECIALIST Waveform: Monophasic LEFT DPA Waveform: Biphasic , PVR RIGHT Ankle Grade: Abnormal RIGHT Transmetarsal Grade: Absent RIGHT Digit (PPG) Grade: Absent LEFT Ankle Grade: Abnormal Prior Interventions 09/07/2018 bypass graft- left fem-peroneal. Report Signatures Finalized by Radha Lomas DO, RVT, SAMANTA SANTOYO on 03/14/2025 11:55 AM Normal [facility] US ANKLE/BRACHIAL INDICES EXTREMITY LIMITED Patient Info Name: Tristin Powell Age: 85 years : 1940 Gender: Male Exam Date: 03/14/2025 8:20 AM Patient Status: OUTPATIENT Site Location: [facility] Indications I73.9 - Peripheral vascular disease, unspecified Procedure Description 89302 Limited bilateral noninvasive physiologic studies of upper or lower extremity arteries with bidirectional Doppler/PVR waveform analysis at 1-2 levels. Binder Technician: Ernestina Campos RVT, [facility] Staff Ordering Physician: Mohsen Sarabia MD, NATANAEL Conclusions * Right and left ankle brachial [...] Segmental BP RIGHT Brachial A mmH RIGHT NEWS CONTENT SPECIALIST mmH RIGHT NEWS CONTENT SPECIALIST Index: 0.31 RIGHT DPA mmH RIGHT DPA Index: 0.50 RIGHT Digit mmH RIGHT YAMILE Index: 0.50 RIGHT TBI Index: 0.00 LEFT Brachial A mmH LEFT NEWS CONTENT SPECIALIST Index: 0.40 LEFT NEWS CONTENT SPECIALIST mmH LEFT DPA Index: 0.55 LEFT DPA mmH LEFT YAMILE Index: 0.55 Doppler RIGHT NEWS CONTENT SPECIALIST Waveform: Monophasic RIGHT DPA Waveform: Monophasic LEFT NEWS CONTENT SPECIALIST Waveform: Monophasic LEFT DPA Waveform: Biphasic , PVR RIGHT Ankle Grade: Abnormal RIGHT Transmetarsal Grade: Absent RIGHT Digit (PPG) Grade: Absent LEFT Ankle Grade: Abnormal Prior Interventions 09/07/2018 bypass graft- left fem-peroneal. Report Signatures Finalized by Radha Lomas DO, RVT, RPLUIZA, FSYVES on 03/14/2025 11:55 AM Dictated by: RADHA SU on MonMar 14, 2025 11:55:02 AM EDT Transcribed by: RADHA SU on MonMar 14, 2025 11:55:02 AM EDT Finalized by: RADHA SU on MonMar 14, 2025 11:55:02 AM EDT [facility] US DUPLEX ARTERIAL LEG RIGHT on 03-14-2025 US DUPLEX ARTERIAL LEG RIGHT Patient Info Name: Tristin Powell Age: 85 years : 1940 Gender: Male Exam Date: 03/14/2025 8:20 AM Patient Status: OUTPATIENT Site Location: [facility] Indications I73.9 - Peripheral vascular disease, unspecified Procedure Description 69865 Duplex scan of lower extremity arteries or arterial bypass grafts using B-mode, color and spectral Doppler; unilateral or limited study. Binder Technician: Ernestina Campos RVT, [facility] Staff Ordering Physician: Mohsen Sarabia MD, VI Conclusions * 50-99% stenosis in the right mid superficial femoral artery. * Unable to obtain right external iliac artery images due to bandaging from recent procedure. Risk Factors Patient with a history of hypertension, hyperlipidemia, CAD and PAD. Measurements RIGHT INSPECTOR MOTOR VEHICLES PSV (cm/s): 115 RIGHT INSPECTOR MOTOR VEHICLES EDV (cm/s): 7 RIGHT Prox PFA PSV [...] Distal LAUREL EDV (cm/s): 6 RIGHT Prox NEWS CONTENT SPECIALIST PSV (cm/s): 81 RIGHT Prox NEWS CONTENT SPECIALIST EDV (cm/s): 14 RIGHT Mid NEWS CONTENT SPECIALIST PSV (cm/s): 38 RIGHT Mid NEWS CONTENT SPECIALIST EDV (cm/s): 6 RIGHT Distal NEWS CONTENT SPECIALIST PSV (cm/s): 57 RIGHT Distal NEWS CONTENT SPECIALIST EDV (cm/s): 20 RIGHT Prox Gabriela PSV (cm/s): 46 RIGHT Prox Gabriela EDV (cm/s): 12 RIGHT Mid Gabirela PSV (cm/s): 52 RIGHT Mid Gabriela EDV (cm/s): 18 RIGHT Distal Gabriela PSV (cm/s): 59 RIGHT Distal Gabriela EDV (cm/s): 20 Measurements RIGHT YAMILE Index: 0.50 LEFT YAMILE Index: 0.55 Prior Interventions 09/07/2018 Bypass graft - Left femoral - peroneal. Report Signatures Finalized by Radha Lomas DO, INOCENCIO, RPLUIZA, FSVM on 03/14/2025 11:57 AM [facility] US DUPLEX ARTERIAL LEG RIGHT Patient Info Name: Tristin Powell Age: 85 years : 1940 Gender: Male Exam Date: 03/14/2025 8:20 AM Patient Status: OUTPATIENT Site Location: [facility] Indications I73.9 - Peripheral vascular disease, unspecified Procedure Description 04913 Duplex scan of lower extremity arteries or arterial bypass grafts using B-mode, color and spectral Doppler; unilateral or limited study. Binder Technician: Ernestina Campos RVT, [facility] Staff Ordering Physician: Mohsen Sarabia MD, NATANAEL Conclusions * 50-99% stenosis in the right mid superficial femoral artery. * Unable to obtain right external iliac artery images due to bandaging from recent procedure. Risk Factors Patient with a history of hypertension, hyperlipidemia, CAD and PAD. Measurements RIGHT INSPECTOR MOTOR VEHICLES PSV (cm/s): 115 RIGHT INSPECTOR MOTOR VEHICLES EDV (cm/s): 7 RIGHT Prox PFA PSV [...] Distal LAUREL EDV (cm/s): 6 RIGHT Prox NEWS CONTENT SPECIALIST PSV (cm/s): 81 RIGHT Prox NEWS CONTENT SPECIALIST EDV (cm/s): 14 RIGHT Mid NEWS CONTENT SPECIALIST PSV (cm/s): 38 RIGHT Mid NEWS CONTENT SPECIALIST EDV (cm/s): 6 RIGHT Distal NEWS CONTENT SPECIALIST PSV (cm/s): 57 RIGHT Distal NEWS CONTENT SPECIALIST EDV (cm/s): 20 RIGHT Prox Gabriela PSV [...] on MonMar 14, 2025 11:57:02 AM EDT [facility] [place] [facility] SAPHENOUS VEIN MAPon 02-25 US SAPHENOUS VEIN MAP Patient Info Name: Tristin E Sherry Age: 85 years : 1940 Gender: Male Exam Date: 03/14/2025 9:26 PM Patient Status: INPATIENT Site Location: [facility] Indications Z01.810 - Encounter for preprocedural cardiovascular examination Procedure Description 16299 Duplex examination using B-mode, color and spectral Doppler of extremity veins including responses to compression and other maneuvers; complete bilateral study. Binder Technician: Cristian Ellis Latricia, [facility] Staff Ordering Physician: Beena Barraza Conclusions * [...] on MonMar 16, 2025 11:15:31 AM EDT [facility] [place] [facility] UE VEIN MAPon 03-14-2025 UE VEIN MAP Patient Info Name: Tristin Powell Age: 85 years : 1940 Gender: Male Exam Date: 03/14/2025 9:20 PM Patient Status: INPATIENT Site Location: [facility] Indications Z01.810 - Encounter for preprocedural cardiovascular examination Procedure Description 00797 Duplex examination using B-mode, color and spectral Doppler of extremity veins including responses to compression and other maneuvers; complete bilateral study. Binder Technician: Cristian Ellis RVT, [facility] Staff Ordering Physician: Beena Celis * Right [...] by Aaron Hein MD, NATANAEL on 03/16/2025 11:14 AM Dictated by: AARON HEIN on MonMar 16, 2025 11:14:40 AM EDT Transcribed by: AARON HEIN on [place] Mar 16, 2025 11:14:40 AM EDT Finalized by: AARON HEIN on [place] Mar 16, 2025 11:14:40 AM EDT [facility] Basic Metabolic Panelon 02-25 Creatinine Clr Calc Pharmacy 66.99 Normal [facility] Comment on above: Result Comment: PERF ORMED BY: [place] [address] PATHOLOGIST TONE CABINET ASSEMBLER MAXIM COELHO M.D. Performed By: #### B MP, CBC #### [place] [address] [place] GFR/1.73 sq M.predicted MDRD (S/P/Bld) [Vol rate/Area] mL/min/{1.73_m2} Normal [facility] Comment on above: Performed By: #### B MP, CBC #### [place] [address] [place] Basophils [#/volume] in Bloo d by Automated countOrdered By: Duke Hector on 03-12-2025 Basophils (Bld) [#/Vol] 0.0 10*3/uL Normal 0.0-0.2 [facility] Comment on above: Result Comment: PERF ORMED BY: [place] [address] PATHOLOGIST TONE CABINET ASSEMBLER MAXIM COELHO M.D. Performed By: #### B MP, CBC #### [place] [address] [place] Basophils/100 leukocytes in Blood by Automated countOrdered By: Duke Hector on 03-12-2025 Basophils/100 WBC (Bld) 1.1 % Normal . [facility] Comment on above: Performed By: #### B MP, CBC #### [place] [address] [place] Calcium [Mass/volume] in Ser um or PlasmaOrdered By: Duke Hector on 03-12-2025 Calcium [Mass/Vol] 9.4 mg/dL Normal 8.6-10.3 [facility] Comment on above: Performed By: #### B MP, CBC #### [address] Carbon dioxide, total [Moles /volume] in Serum or PlasmaOrdered By: Duke Hector on 03-12-2025 CO2 [Moles/Vol] 26.4 mmol/L Normal 21.0-31.0 [facility] Comment on above: Performed By: #### B MP, CBC #### [address] Chloride [Moles/volume] in S roger or PlasmaOrdered By: Duke Hector on 03-12-2025 Chloride [Moles/Vol] 105 mmol/L Normal 98-107 [facility] Comment on above: Performed By: #### B MP, CBC #### [address] Complete Blood Count Auto Di ffon 03-12-2025 Mean Corpuscular HGB Conc 34.7 g/dL Normal 32.5-35.6 [facility] Comment on above: Performed By: #### B MP, CBC #### [address] NRBC% 0.3 /100{WBC} Normal 0-0.5 [facility] Comment on above: Performed By: #### B MP, CBC #### [address] White Blood Count 2.4 [CFU]/mL Low 4.1-10.5 [facility] Comment on above: Performed By: #### B MP, CBC #### [address] Creatinine [Mass/volume] in Serum or PlasmaOrdered By: Duke Hector on 03-12-2025 Creatinine [Mass/Vol] 1.06 mg/dL Normal 0.70-1.30 [facility] Comment on above: Performed By: #### B MP, CBC #### [address] ECG 12 lead ECGon 03-12-2025 ECG 12 lead ECG [facility] [address] [place] [address] Electrocardiograph Report Signed Patient: Tristin Powell MR#: [id number] : 1940 Acct:[id number] Age/Sex: 85 / M ADM Date: 03/12/25 Loc: [place] Room: Type: [facility] Attending Dr: Cristian Beaver MD Ordering Provider: [...] QT Abnormal ECG Confirmed by Mell Jackson ([id number]) on 03/13/2025 4:30:37 PM Referred By: Electronically Signed By: Mell Jackson Transcribed By: MUS Signed By Mell Jackson MD 5 1630 Normal [facility] Eosinophils [#/volume] in Bl ood by Automated countOrdered By: Duke Hector on 03-12-2025 Eosinophils (Bld) [#/Vol] 0.1 10*3/uL Normal 0.0-0.45 [facility] Comment on above: Performed By: #### B MP, CBC #### [facility] [address] [place] [address] [place] Eosinophils/100 leukocytes i n Blood by Automated countOrdered By: Duke Hector on 03-12-2025 Eosinophils/100 WBC (Bld) 5.7 % Normal . [facility] Comment on above: Performed By: #### B MP, CBC #### [facility] [address] [place] [address] [place] Erythrocyte distribution wid th [Ratio] by Automated countOrdered By: Duke Hector on 03-12-2025 Erythrocyte distribution width (RBC) [Ratio] 14.7 % Normal 12.0-14.8 [facility] Comment on above: Performed By: #### B MP, CBC #### [facility] [address] [place] [address] [place] Erythrocytes [#/volume] in B lood by Automated countOrdered By: Duke Hector on 03-12-2025 RBC (Bld) [#/Vol] 4.29 10*6/uL Normal 3.90-5.60 [facility] Comment on above: Performed By: #### B MP, CBC #### [facility] [address] Glucose [Mass/volume] in Ser um or PlasmaOrdered By: Duke Hector on 03-12-2025 Glucose [Mass/Vol] 109 mg/dL High 70-100 [facility] Comment on above: ADA recommended refe rence rangeRandom Glucose Reference Range is dependent on time and content of last meal. Glucose of more than 200 mg/dL in a nonstressed, ambulatory subject supports the diagnosis of Diabetes Mellitus. Result Comment: [place] om Glucose Reference Range is dependent on time and content of last meal. Glucose of more than 200 mg/dL in a nonstressed, ambulatory subject supports the diagnosis of Diabetes Mellitus. ADA recommended reference range Performed By: #### B MP, CBC #### [address] Hematocrit [Volume Fraction] of Blood by Automated countOrdered By: Duke Hector on 03-12-2025 Hematocrit (Bld) [Volume fraction] 38.6 % Low 38.8-50.0 [facility] Comment on above: Performed By: #### B MP, CBC #### [facility] [address] Hemoglobin [Mass/volume] in BloodOrdered By: Duke Hector on 03-12-2025 Hemoglobin (Bld) [Mass/Vol] 13.4 g/dL Normal 13.0-17.0 [facility] Comment on above: Performed By: #### B MP, CBC #### [facility] [address] [place] [address] [place] Leukocytes [#/volume] correc maximilian for nucleated erythrocytes in Blood by Automated counOrdered By: Duke Hector on 03-12-2025 WBC corrected for nucl RBC Auto (Bld) [#/Vol] 2.4 10*3/uL Low 4.1-10.5 [facility] Leukocytes [#/volume] in Blo od by Automated countOrdered By: Duke Hector on 03-12-2025 WBC (Bld) [#/Vol] 2.4 10*3/uL Low 4.1-10.5 [facility] Comment on above: Performed By: #### B MP, CBC #### [facility] [address] Lymphocytes [#/volume] in Bl ood by Automated countOrdered By: Duke Hector on 03-12-2025 Lymphocytes (Bld) [#/Vol] 0.5 10*3/uL Low 1.00-4.8 [facility] Comment on above: Performed By: #### B MP, CBC #### [facility] [address] [place] [address] [place] Lymphocytes/100 leukocytes i n Blood by Automated countOrdered By: Duke Hector on 03-12-2025 Lymphocytes/100 WBC (Bld) 22.3 % Normal . [facility] Comment on above: Performed By: #### B MP, CBC #### [facility] [address] [place] [address] MCH [Entitic mass] by Automa maximilian countOrdered By: Duke Hector on 03-12-2025 MCH (RBC) [Entitic mass] 31.2 pg Normal 27.5-35.2 [facility] Comment on above: Performed By: #### B MP, CBC #### [facility] [address] [place] [address] MCHC Auto (RBC) [Mass/Vol]Or dered By: Duke Hector on 03-12-2025 MCHC (RBC) [Mass/Vol] 34.7 g/dL 32.5-35.6 [facility] MCV [Entitic volume] by Auto mated countOrdered By: Duke Hector on 03-12-2025 MCV (RBC) [Entitic vol] 90.0 fL Normal 83.5-101 [facility] Comment on above: Performed By: #### B MP, CBC #### [facility] [address] [place] [address] [place] Monocytes [#/volume] in Bloo d by Automated countOrdered By: Duke Hector on 03-12-2025 Monocytes (Bld) [#/Vol] 0.6 10*3/uL Normal 0.0-0.8 [facility] Comment on above: Performed By: #### B MP, CBC #### [facility] [address] [place] [address] [place] Monocytes/100 leukocytes in Blood by Automated countOrdered By: Duke Hector on 03-12-2025 Monocytes/100 WBC (Bld) 23.1 % Normal . [facility] Comment on above: Performed By: #### B MP, CBC #### [facility] [address] [place] [address] Neutrophils [#/volume] in Bl ood by Automated countOrdered By: Duke Hector on 03-12-2025 Neutrophils (Bld) [#/Vol] 1.2 10*3/uL Low 1.8-7.7 [facility] Comment on above: Performed By: #### B MP, CBC #### [facility] [address] [place] [address] Neutrophils/100 leukocytes i n Blood by Automated countOrdered By: Duke Hector on 03-12-2025 Neutrophils/100 WBC (Bld) 47.8 % Normal . [facility] Comment on above: Performed By: #### B MP, CBC #### [facility] [address] [place] [address] No Panel InformationOrdered By: Duke Hector on 03-12-2025 Estimated GFR (CKD-EPI) > 60.0 mL/Min [facility] Creatinine Clearance (Chem 66.99 [facility] Nucleated erythrocytes [Pres ence] in Blood by Automated countOrdered By: Duke Hector on 03-12-2025 Nucleated RBC Auto Ql (Bld) 0.3 /100{WBC} 0-0.5 [facility] Platelet mean volume [Entiti c volume] in Blood by Automated countOrdered By: Duke Hector on 03-12-2025 Platelet mean volume (Bld) [Entitic vol] 7.6 fL Normal 6.6-10.1 [facility] Comment on above: Performed By: #### B MP, CBC #### [facility] [address] Platelets [#/volume] in Bloo d by Automated countOrdered By: Duke Hector on 03-12-2025 Platelets (Bld) [#/Vol] 166 10*3/uL Normal 150-450 [facility] Comment on above: Performed By: #### B MP, CBC #### [address] Potassium [Moles/volume] in Serum or PlasmaOrdered By: Duke Hector on 03-12-2025 Potassium [Moles/Vol] 4.4 mmol/L Normal 3.5-5.1 [facility] Comment on above: Performed By: #### B MP, CBC #### [address] Serum or plasma anion gap de terminationOrdered By: Duke Hector on 03-12-2025 Anion gap [Moles/Vol] 11.0 mmol/L Normal 6.0-15.0 [facility] Comment on above: Performed By: #### B MP, CBC #### [address] Sodium [Moles/volume] in Ser um or PlasmaOrdered By: Duke Hector on 03-12-2025 Sodium [Moles/Vol] 138 mmol/L Normal 136-145 [facility] Comment on above: Performed By: #### B MP, CBC #### [place] [address] [place] Urea nitrogen [Mass/volume] in Serum or PlasmaOrdered By: Duke Hector on 03-12-2025 Urea nitrogen [Mass/Vol] 22 mg/dL Normal 7-25 [facility] Comment on above: Performed By: #### B MP, CBC #### [address] CULTURE, URINE, ROUTINEon CULTURE, URINE, ROUTINE SEE NOTE Normal [facility] Comment on above: Result Comment: CULTURE, URINE, ROUTINE Micro Number: [id number] Test Status: Final Specimen Source: Urine Specimen Quality: Adequate Result: No Growth Performed By: #### 3 95 #### [facility] [address], [address] [place], [place] [id number] Cottonseed Meat Presser: Gene Liang MD PSA, TOTALon 01-10-2025 PSA, TOTAL <0.04 Normal < OR = 4.00 [facility] Comment on above: Result Comment: The total PSA value from this assay system is standardized against the WHO standard. The test result will be approximately 20% lower when compared to the equimolar-standardized total PSA (Starr Cranbury). Comparison of serial PSA results should be interpreted with this fact in mind. This test was performed using the Siemens chemiluminescent method. Values obtained from different assay methods cannot be used interchangeably. PSA levels, regardless of value, should not be interpreted as absolute evidence of the presence or absence of disease. Performed By: #### 5 363 #### [facility] [address], [address] [place], [place] [phone] [employer] Presser: Gene Liang MD Urinalysis macro (dipstick) panel (U)on 01-09-2025 Bilirubin, UA Negative Negative - 4(70) +++ mg/dL [facility] Blood, UA Negative Negative - 50 Donovan/mcL [facility] Clarity, UA Clear [facility] Color, UA Light Yellow [facility] Glucose, UA Negative Negative - 1999(110) ++++ mg/dL [facility] Interpretation and review of laboratory results Normal [facility] Ketones, UA Negative Negative - 160(16) ++++ mg/dL [facility] Leukocytes, UA Negative Negative - 500+++ Adarsh/mcL [facility] Nitrite, UA Negative Negative - Positive [facility] pH, UA 7.5 5 - 9 [facility] Protein, UA Negative Negative - 1999(20) ++++ mg/dL [facility] Spec Grav, UA 1 1 - 1.03 [facility] Urobilinogen, UA 0.2 0.2 - 12 mg/dL [facility] Office Visiton 12-18-2024 Follow-up visit [id number] Tristin Powell 1940 M Date Provider Department Center 12/18/2024 ELIEZER MIXON BENOIT Teodoro Minoo Family History Problem Relation Age of Onset Coronary artery disease Other Hyperlipidemia Other Hypertension Other Family Status - Relation Status Age at Other Level of Service:[address] [place] OFFICE/OUTPATIENT ESTABLISHED LOW MDM 20 MIN Normal [facility] US ankle/arm indiceson 07-29 US ankle/arm indices [facility] [address] [place] [address] Ultrasound Report Signed Patient: Tristin Powell MR#: [id number] : 1940 Acct:[id number] Age/Sex: 84 / M ADM Date: 07/29/24 Loc: [facility] Room: Type: [facility] Attending Dr: Cristian Beaver MD Ordering Provider: [...] Cristian Beaver M.D.07/29/2024 11:33 AM Dictation Location: [id number] Tech: Vivinaa Stewart Transcribed By: VICENTE 07/29/24 1133 Dictated By: Cristian Beaver MD 07/29/24 1132 Signed By: 07/29/24 1133 Normal [facility] US arterial duplex LE LTon 1 09-29-2023 US arterial duplex LE LT [facility] [address] [place] [address] Ultrasound Report Signed Patient: Tristin Powell MR#: [id number] : 1940 Acct:[id number] Age/Sex: 84 / M ADM Date: 07/29/24 Loc: [facility] Room: Type: REG CLI Attending Dr: Cristian Beaver MD Ordering Provider: Cristian Beaver MD Date of Service: 07/29/24 US/US arterial duplex LE LT: I70.213 Copies to: Cristian Beaver MD Arterial [...] Cristian Beaver M.D.07/29/2024 11:35 AM Dictation Location: [place] [address] Tech: Gaby Castro Transcribed By: VICENTE 07/29/24 1135 Dictated By: Cristian Beaver MD 07/29/24 1133 Signed By: 07/29/24 1135 Normal [facility] US carotid doppler BIon - US carotid doppler BI [facility] [address] [place], [place] [address] Ultrasound Report Signed Patient: Tristin Powell MR#: [id number] : 1940 Acct:[id number] Age/Sex: 84 / M ADM Date: 07/29/24 Loc: [facility] Room: Type: REG CLI Attending Dr: Cristian Beaver MD Ordering Provider: [...] Cristian Beaver M.D.07/29/2024 11:31 AM Dictation Location: [place] [address] Tech: Gaby Castro Transcribed By: VICENTE 07/29/24 1131 Dictated By: Cristian Beaver MD 07/29/24 1130 Signed By: 07/29/24 1131 Normal [facility] Office Visiton 07-22-2024 Follow-up visit [id number] Tristin Powell 1940 M [facility] Provider Department Center 07/22/2024 ELIEZER MIXON BENOIT [facility] Family History Problem Relation Age of Onset Coronary artery disease Other Hyperlipidemia Other Hypertension Other Family Status - Relation Status Age at Other Level of Service:[address] [place] OFFICE/OUTPATIENT ESTABLISHED LOW MDM 20 MIN Normal [facility] 36on 07-18-2024 36 LM for patient to return my call. Normal [facility] 36on 07-17-2024 36 Please let him know his ECHO looked okay. Labs showed some mild elevation in inflammatory labs. Is he still experiencing chest pains? If so, we can try to start him on something short term to help. Thanks! Normal [facility] Telephoneon 07-17-2024 Telephone [id number] Tristin Powell 1940 M [facility] Provider Department Center 07/17/2024 RUSSEL ADAIRaren . Family History Problem Relation Age of Onset Coronary artery disease Other Hyperlipidemia Other Hypertension Other Family Status - Relation Status Age at Other Normal [facility] ALL BASIC METABOLIC PANELon 07-11-2024 Anion gap [Moles/Vol] 15.1 mmol/L [facility] Calcium [Mass/Vol] 8.9 mg/dL 8.5 - 10. 1 mg/dL [facility] Chloride [Moles/Vol] 108 mmol/L High 98 - 10 7 mmol/L [facility] CO2 [Moles/Vol] 27.3 mmol/L 21.0 - 32.0 mmol/L [facility] Creatinine [Mass/Vol] 1.32 mg/dL High 0.70 - 1.30 mg/dL [facility] GFR/1.73 sq M.predicted CKD-EPI (S/P/Bld) [Vol rate/Area] >60 >=60 mL/min/1.73m 2 [facility] Glucose [Mass/Vol] 94 mg/dL 74 - 106 mg/dL [facility] Interpretation and review of laboratory results Abnormal [facility] Potassium [Moles/Vol] 4.4 mmol/L 3.5 - 5.1 mmol/L [facility] Sodium [Moles/Vol] 146 mmol/L High 136 - 145 mmol/L [facility] EGFR-NON AF MALTESE 52 Low >=60 mL/min/1.73m 2 [facility] Urea nitrogen [Mass/Vol] 15 mg/dL 7.0 - 18.0 mg/dL [facility] Urea nitrogen/Creatinine [Mass ratio] 11.4 mg/mg [facility] WITH AUTO DIFFon Erythrocyte distribution width (RBC) [Ratio] 13.9 % 11.0 - 15.0 % [facility] Hematocrit (Bld) [Volume fraction] 40.9 % Low 42.0 - 54.0 % [facility] Hemoglobin (Bld) [Mass/Vol] 13.9 g/dL Low 14.0 - 18.0 g/dL [facility] MCH (RBC) [Entitic mass] 31.1 pg 25.9 - 34.0 pg [facility] MCHC (RBC) [Mass/Vol] 34 g/dL 29.9 - 35.2 g/dL [facility] MCV (RBC) [Entitic vol] 91.5 fL 80.0 - 94.0 fL [facility] Platelet mean volume (Bld) [Entitic vol] 9.5 fL 9.5 - 13.5 fL [facility] TB PLT 169 [facility] RBC 4.47 Low [facility] WBC 3.3 Low [facility] ALL SED RATEon 07-11-2024 TBH SED RATE 20 NINF [facility] MHPT DIFFERENTIALon 07-11-20 24 BASOPHILS ABS MANUAL 0 [facility] BASOPHILS PERCENT MANUAL 0 % Low 0.2 - 2.0 % [facility] Eosinophils (Bld) [#/Vol] 0.13 10*3/uL [facility] EOSINOPHILS PERCENT MANUAL 4 % 0.9 - 7.0 % [facility] Lymphocytes (Bld) [#/Vol] 0.59 10*3/uL Low [facility] LYMPHOCYTES PERCENT MANUAL 18 % Low 20.5 - 60.0 % [facility] Monocytes (Bld) [#/Vol] 0.52 10*3/uL [facility] MONOCYTES PERCENT MANUAL 16 % High 1.7 - 12.0 % [facility] SEGMENTED NEUT ABSOLUTE MANUAL 2.04 [facility] SEGMENTED NEUTROPHILS % MANUAL 62 43.0 - 75.0 [facility] No Panel Informationon 07-11 Interpretation and review of laboratory results Abnormal [facility] Healthcare HPon 07-10-2024 [facility] Cardiology Interv al Pre-procedural H&P H&P reviewed. [...] were addressed and answered. Mabel Pino MD Internet Merchant - PGY6 [facility] Tristin Powell is a 84 y.o. year old male patient being seen for 6 mo follow up CAD, PAD, AAA, HTN, and HLD. Had lipid panel Sep, 2023. He is now seeing vascular surgery in [place], Dr. Beaevr. Problem List Patient Active Problem List Diagnosis Abdominal pain Chest pain Aortic valve regurgitation Mitral valve regurgitation Avascular necrosis of bone of hip (CMS/HCC) Community acquired pneumonia of left lower lobe of lung Contusion Hematoma of arm, left, initial encounter Coronary artery disease involving coronary bypass graft of eyak heart without angina pectoris Coronary artery disease involving eyak coronary artery of eyak heart without angina pectoris Coronary atherosclerosis Critical [...] instent restenosis. He then underwent CABG at [facility] in 2017 (CHAVEZ to diagonal, SVG [...] could be (more content not included)... Normal [facility] NURSNOTEon 07-10-2024 NURSZEINA Powell called stating he had a heart cath yesterday and he is having chest pain when he takes a deep breath and when he leans back. Chest pain is not severe. He asked if this was normal. Tia Vallejo CNP was notified. Per Tia Vallejo CNP. Lab orders of CBC, BMP, ESR and CRP. Limited Echo for chest pain R/O pericarditis. Notified [facility] to have echo and labs done at [place]. Called Tristin Powell explaining need for echo and labs. Instructed to go to ER if chest pain worsens. Normal [facility] ALL BASIC METABOLIC PANELon 07-03-2024 Anion gap [Moles/Vol] 13.4 mmol/L [facility] Calcium [Mass/Vol] 9.8 mg/dL 8.5 - 10. 1 mg/dL [facility] Chloride [Moles/Vol] 106 mmol/L 98 - 10 7 mmol/L [facility] CO2 [Moles/Vol] 27.4 mmol/L 21.0 - 32.0 mmol/L [facility] Creatinine [Mass/Vol] 1.33 mg/dL High 0.70 - 1.30 mg/dL [facility] GFR/1.73 sq M.predicted CKD-EPI (S/P/Bld) [Vol rate/Area] >60 >=60 mL/min/1.73m 2 [facility] Glucose [Mass/Vol] 110 mg/dL High 74 - 106 mg/dL [facility] Interpretation and review of laboratory results Abnormal [facility] Potassium [Moles/Vol] 4.8 mmol/L 3.5 - 5.1 mmol/L [facility] Sodium [Moles/Vol] 142 mmol/L 136 - 145 mmol/L [facility] TBH EGFR-NON AF MALTESE 51 Low >=60 mL/min/1.73m 2 [facility] Urea nitrogen [Mass/Vol] 16 mg/dL 7.0 - 18.0 mg/dL [facility] Urea nitrogen/Creatinine [Mass ratio] 12 mg/mg [facility] Orders Onlyon 07-02-2024 Orders Only [id number] Tristin Powell 1940 [facility] Provider Department Center 07/02/2024 Beronica7-MAIA [facility] Heart[facility]AS Family History Problem Relation Age of Onset Coronary artery disease Other Hyperlipidemia Other Hypertension Other Family Status - Relation Status Age at Other [facility] Orders Onlyon 06-11-2024 Orders Only [id number] Tristin Powell 1940 [facility] Provider Department [place] 06/11/2024 RUSSEL ADAIR Family History Problem Relation Age of Onset Coronary artery disease Other Hyperlipidemia Other Hypertension Other Family Status - Relation Status Age at Other [facility] 36on 05-31-2024 36 Please let him know that I discussed our plan with Dr. Carvalho, recommend proceeding with cardiac cath given the bump in his heart enzymes recently. We want to make sure nothing significant has changed. This will also help with planning any vascular surgery in the future. Thanks! [facility] Telephoneon 05-31-2024 Telephone [id number] Tristin Powell 1940 [facility] Provider Department Center 05/31/2024 RUSSEL ADAIR Family History Problem Relation Age of Onset Coronary artery disease Other Hyperlipidemia Other Hypertension Other Family Status - Relation Status Age at Other [facility] Office Visiton 05-28-2024 Follow-up visit [id number] Tristin Powell 1940 [facility] Department [place] 05/28/2024 RUSSEL ADAIR Family History Problem Relation Age of Onset Coronary artery disease Other Hyperlipidemia Other Hypertension Other Family Status - Relation Status Age at Other Level of Service:17869 [place] OFFICE/OUTPATIENT ESTABLISHED MOD MDM 30 MIN [facility] ALL MAGNESIUMon 05-14-2024 Magnesium [Mass/Vol] 2.1 mg/dL 1.6 - 2 .4 mg/dL [facility] Basic Metab w/rfx MGon 05-14 Anion gap [Moles/Vol] 10 mmol/L Normal 9-16 [facility] Comment on above: Performed By: #### T ROPI, CBC, MG, BMPX #### [facility] [address] [place] [address] Drainage Inspector: Mary Astorga MD #### GLYHGB #### [facility] [address] [place] [address] Drainage Inspector: Kale Orona MD BUN/CRE Ratio 16 Normal 9-20 [facility] Comment on above: Performed By: #### T ROPI, CBC, MG, BMPX #### [facility] [address] [place] [address] [place] [address] Drainage Inspector: Mary Astorga MD #### GLYHGB #### [place] [id number] [place], [place] [id number] Drainage Inspector: Kale Orona MD Calcium [Mass/Vol] 9.3 mg/dL Normal 8.6-10.4 [facility] Comment on above: Performed By: #### T ROPI, CBC, MG, BMPX #### [address] [place] [address] Drainage Inspector: Mary Astorga MD #### GLYHGB #### [place] [id number] [place] [address] Drainage Inspector: Kale Orona MD Chloride [Moles/Vol] 106 mmol/L Normal 98-107 [facility] Comment on above: Performed By: #### T ROPI, CBC, MG, BMPX #### [facility] [address] [place] [address] Drainage Inspector: Mary Astorga MD #### GLYHGB #### [facility] [address] [place], [place] [id number] Drainage Inspector: Kale Orona MD CO2 [Moles/Vol] 23 mmol/L Normal 20-31 [facility] [facility] Comment on above: Performed By: #### T ROPI, CBC, MG, BMPX #### [facility] [address] [place] [address] [place] [address] Drainage Inspector: Mary Astorga MD #### GLYHGB #### [id number] [place], [place] 1152008 Drainage Inspector: Kale Orona MD Creatinine [Mass/Vol] 1.1 mg/dL Normal 0.70-1.20 [facility] Comment on above: Performed By: #### T ROPI, CBC, MG, BMPX #### [address] [place] [address] Drainage Inspector: Mary Astorga MD #### GLYHGB #### [id number] [place], [place] [phone] Drainage Inspector: Kale Orona MD GFR/1.73 sq M.predicted among non-blacks MDRD (S/P/Bld) [Vol rate/Area] 65 mL/min/{1.73_m2} Normal >60 [facility] Comment on above: Result Comment: These [...] renal tubular secretion. Performed By: #### T ROPI, CBC, MG, BMPX #### [address] [place] [address] Drainage Inspector: Mary Astorga MD #### GLYHGB #### [id number] [place] [address] Drainage Inspector: Kale Orona MD Glucose [Mass/Vol] 90 mg/dL Normal 74-99 [facility] Comment on above: Performed By: #### T ROPI, CBC, MG, BMPX #### [facility] [address] [place] [address] [place], [place] [phone] Drainage Inspector: Mary Astorga MD #### GLYHGB #### [address] [address] Drainage Inspector: Kale Orona MD Potassium [Moles/Vol] 4.4 mmol/L Normal 3.7-5.3 [facility] Comment on above: Performed By: #### T ROPI, CBC, MG, BMPX #### [address] [place] [id number] Drainage Inspector: Mary Astorga MD #### GLYHGB #### [id number] [place], [place] [id number] Drainage Inspector: Kale Orona MD Sodium [Moles/Vol] 139 mmol/L Normal 136-145 [facility] Comment on above: Performed By: #### T ROPI, CBC, MG, BMPX #### [address] [place] [address] Drainage Inspector: Mary Astorga MD #### GLYHGB #### [address] [id number] Drainage Inspector: Kale Orona MD Urea nitrogen [Mass/Vol] 18 mg/dL Normal 8-23 [facility] Comment on above: Performed By: #### T ROPI, CBC, MG, BMPX #### [address] [place], [place] [id number] Drainage Inspector: Mary Astorga MD #### GLYHGB #### [address] [address] Drainage Inspector: Kale Orona MD Brain Natri. Peptideon 05-14 Natriuretic peptide B (Bld) [Mass/Vol] 980 pg/mL High 0-450 [facility] Comment on above: Performed By: #### L IPR #### [address] [address] Drainage Inspector: Kale Orona MD [facility] Erythrocyte distribution width (RBC) [Ratio] 14.8 % High 11.8-14.4 [facility] Comment on above: Performed By: #### T YARIEL, CBC, MG, BMPX #### [address] [place] [address] Drainage Inspector: Mary Astorga MD #### GLYHGB #### [address] [address] Drainage Inspector: Kale Orona MD Hematocrit (Bld) [Volume fraction] 38.8 % Low 40.7-50.3 [facility] Comment on above: Performed By: #### T YARIEL, CBC, MG, BMPX #### [address] [place] [address] Drainage Inspector: Mary Astorga MD #### GLYHGB #### [address] [address] Drainage Inspector: Kale Orona MD Hemoglobin (Bld) [Mass/Vol] 13.2 g/dL Normal 13.0-17.0 [facility] Comment on above: Performed By: #### T YARIEL, CBC, MG, BMPX #### [facility] [address] [place] [address] [place] [address] Drainage Inspector: Mary Astorga MD #### GLYHGB #### [address] [address] Drainage Inspector: Kale Orona MD MCH (RBC) [Entitic mass] 30.6 pg Normal 25.2-33.5 [facility] Comment on above: Performed By: #### T ROPI, CBC, MG, BMPX #### [address] [place] [phone] Drainage Inspector: Mary Astorga MD #### GLYHGB #### [id number] Drainage Inspector: Kale Orona MD MCHC (RBC) [Mass/Vol] 34.0 g/dL Normal 28.4-34.8 [facility] Comment on above: Performed By: #### T ROPI, CBC, MG, BMPX #### [address] [place] [phone] Drainage Inspector: Mary Astorga MD #### GLYHGB #### [place] [address] Drainage Inspector: Kale Orona MD MCV (RBC) [Entitic vol] 89.8 fL Normal 82.6-102.9 [facility] Comment on above: Performed By: #### T ROPI, CBC, MG, BMPX #### [address] [place] [phone] Drainage Inspector: Mary Astorga MD #### GLYHGB #### [id number] Drainage Inspector: Kale Orona MD NRBC Automated 0.0 per 100 WBC Normal 0.0 [facility] Comment on above: Performed By: #### T ROPI, CBC, MG, BMPX #### [address] [place] [phone] Drainage Inspector: Mary Astorga MD #### GLYHGB #### [address] [place] [address] Drainage Inspector: Kale Orona MD Platelet mean volume (Bld) [Entitic vol] 9.8 fL Normal 8.1-13.5 [facility] Comment on above: Performed By: #### T ROPI, CBC, MG, BMPX #### [address] [place] [phone] Drainage Inspector: Mary Astorga MD #### GLYHGB #### [address] [address] Drainage Inspector: Kale Orona MD Platelets (Bld) [#/Vol] 153 10*3/uL Normal 138-453 [facility] Comment on above: Performed By: #### T ROPI, CBC, MG, BMPX #### [address] [place] [address] Drainage Inspector: Mary Astorga MD #### GLYHGB #### [place] [address] Drainage Inspector: Kale Orona MD RBC (Bld) [#/Vol] 4.32 10*6/uL Normal 4.21-5.77 [facility] Comment on above: Performed By: #### T ROPI, CBC, MG, BMPX #### [address] [place] [phone] Drainage Inspector: Mary Astorga MD #### GLYHGB #### [address] [address] Drainage Inspector: Kale Orona MD WBC (Bld) [#/Vol] 4.0 10*3/uL Normal 3.5-11.3 [facility] Comment on above: Performed By: #### T ROPI, CBC, MG, BMPX #### [address] [place] [phone] Drainage Inspector: Mary Astorga MD #### GLYHGB #### [facility] [employer] [facility] [place] [address] Drainage Inspector: Kale Orona MD [facility] TROPONIN Ion 05-14-2024 Interpretation and review of laboratory results Abnormal [facility] TROPONIN, HIGH SENS 31 ng/L High 0 - 22 ng/L [facility] Comment on above: High Sensitivity Tro ponin values cannot be compared with other Troponin methodologies. [facility] BASIC METABOLIC PANEL R EFLEX MGon 05-14-2024 Anion gap [Moles/Vol] 10 mmol/L 9 - 16 mmol/L [facility] Calcium [Mass/Vol] 9.3 mg/dL 8.6 - 10. 4 mg/dL [facility] Chloride [Moles/Vol] 106 mmol/L 98 - 10 7 mmol/L [facility] CO2 [Moles/Vol] 23 mmol/L 20 - 31 mmol/L [facility] Creatinine [Mass/Vol] 1.1 mg/dL 0.70 - 1.20 mg/dL [facility] Glucose [Mass/Vol] 90 mg/dL 74 - 99 mg/dL [facility] BUN/CRE RATIO 16 9 - 20 [facility] EGFR 65 - PINF [facility] Comment on above: These results are not [...] [Moles/Vol] 4.4 mmol/L 3.7 - 5.3 mmol/L [facility] Sodium [Moles/Vol] 139 mmol/L 136 - 145 mmol/L [facility] Urea nitrogen [Mass/Vol] 18 mg/dL 8 - 23 mg/dL [facility] Hemoglobin A1Con 05-14-2024 Glucose [Mass/Vol] 117 mg/dL Normal [facility] Comment on above: Result Comment: The ADA and AACC recommend providing the estimated average glucose result to permit better patient understanding of their HBA1c result. Performed By: #### T ROPI, CBC, MG, BMPX #### [facility] [address] [place], [place] [phone] Drainage Inspector: Mary Astorga MD #### GLYHGB #### [address] [address] Drainage Inspector: Kale Orona MD HbA1c (Bld) [Mass fraction] 5.7 % Normal 4.0-6.0 [facility] Comment on above: Performed By: #### T YARIEL, CBC, MG, BMPX #### [facility] [address] [place] [address] Drainage Inspector: Mary Astorga MD #### GLYHGB #### [address] [address] Drainage Inspector: Kale Orona MD Lipid Profileon 05-14-2024 Cholesterol [Mass/Vol] 131 mg/dL Normal 0-199 [facility] Comment on above: Result Comment: Cholesterol Guidelines: <200 Desirable 200-240 Borderline >240 Undesirable Performed By: #### L IPR #### [address] [address] Drainage Inspector: Kale Orona MD Cholesterol in HDL [Mass/Vol] 41 mg/dL Normal >40 [facility] Comment on above: Result Comment: HDL Guidelines: <40 Undesirable 40-59 Borderline >59 Desirable Performed By: #### L IPR #### [address] [address] Drainage Inspector: Kale Orona MD Cholesterol in LDL [Mass/Vol] 73 mg/dL Normal 0-100 [facility] Comment on above: Result Comment: LDL Guidelines: <100 Desirable 100-129 Near to/above Desirable 130-159 Borderline >159 Undesirable Direct (measured) LDL and calculated LDL are not interchangeable tests. Performed By: #### L IPR #### [address] [address] Drainage Inspector: Kale Orona MD Cholesterol in VLDL [Mass/Vol] 17 mg/dL Normal [facility] Comment on above: Performed By: #### L IPR #### [address] [address] Drainage Inspector: Kale Orona MD Cholesterol.total/Chol esterol in HDL [Mass ratio] 3.0 {ratio} Normal [facility] Comment on above: Performed By: #### L IPR #### [address] [address] Drainage Inspector: Kale Orona MD Triglyceride [Mass/Vol] 85 mg/dL Normal <150 [facility] Comment on above: Result Comment: Triglyceride Guidelines: <150 Desirable 150-199 Borderline 200-499 High >499 Very high Based on AHA Guidelines for fasting triglyceride, May 2012. Performed By: #### L IPR #### [address] [address] Drainage Inspector: Kale Orona MD Magnesiumon 05-14-2024 Magnesium [Mass/Vol] 2.1 mg/dL Normal 1.6-2.4 [facility] Comment on above: Performed By: #### T ROPI, CBC, MG, BMPX #### [facility] [address] [place] [address] Drainage Inspector: Mary Astorga MD #### GLYHGB #### [address] [address] Drainage Inspector: Kale Orona MD No Panel Informationon 05-14 Original Ordering Provider: RAFAELA Ontiveros CNP MELANI [facility] Troponinon 05-14-2024 Troponin, High Sens 28 ng/L High 0-22 [facility] Comment on above: Result Comment: High Sensitivity Troponin values cannot be compared with other Troponin methodologies. Performed By: #### L IPR #### [address] [address] Drainage Inspector: Kale Orona MD Troponin, High Sens 31 ng/L High 0-22 [facility] Comment on above: Result Comment: High Sensitivity Troponin values cannot be compared with other Troponin methodologies. Performed By: #### T ROPI, CBC, MG, BMPX #### [facility] [address] [place] [address] Drainage Inspector: Mary Astorga MD #### GLYHGB #### [id number] [place] [address] Drainage Inspector: Kale Orona MD ALL PROTIME/INRon 05-13-2024 Interpretation and review of laboratory results Abnormal [facility] MHPT INR 1.2 [facility] Comment on above: Therapeutic Range: Moderate Anticoagulant Intensity: INR = 2.0-3.0 High Anticoagulant Intensity: INR = 2.5-3.5 MHPT PROTHROMBIN TIME 14.[address] [facility] Original Ordering Provider: RAFAELA JOHN [facility] Basic Metab w/rfx MGon 05-13 Anion gap [Moles/Vol] 11 mmol/L Normal 9-16 [facility] Comment on above: Performed By: #### B MPX, PT, CBC #### [facility] [address] [place] [address] Drainage Inspector: Mary Astorga MD BUN/CRE Ratio 16 Normal 9-20 [facility] Comment on above: Performed By: #### B MPX, PT, CBC #### [facility] [address] [place] [address] Drainage Inspector: Mary Astorga MD Calcium [Mass/Vol] 9.5 mg/dL Normal 8.6-10.4 [facility] Comment on above: Performed By: #### B MPX, PT, CBC #### [facility] [address] [place] [address] Drainage Inspector: Mary Astorga MD Chloride [Moles/Vol] 105 mmol/L Normal 98-107 [facility] Comment on above: Performed By: #### B MPX, PT, CBC #### [facility] [address] [place] [address] Drainage Inspector: Mary Astorga MD CO2 [Moles/Vol] 23 mmol/L Normal 20-31 [facility] Comment on above: Performed By: #### B MPX, PT, CBC #### [facility] [address] [place] [address] Drainage Inspector: Mary Astorga MD Creatinine [Mass/Vol] 1.0 mg/dL Normal 0.70-1.20 [facility] Comment on above: Performed By: #### B MPX, PT, CBC #### [facility] [address] [place] [address] Drainage Inspector: Mary Astorga MD GFR/1.73 sq M.predicted among non-blacks MDRD (S/P/Bld) [Vol rate/Area] 73 mL/min/{1.73_m2} Normal >60 [facility] Comment on above: Result Comment: These [...] By: #### B MPX, PT, CBC #### [facility] [address] [place] [address] Drainage Inspector: Mary Astorga MD Glucose [Mass/Vol] 96 mg/dL Normal 74-99 [facility] Comment on above: Performed By: #### B MPX, PT, CBC #### [facility] [address] [place] [address] Drainage Inspector: Mary Astorga MD Potassium [Moles/Vol] 4.2 mmol/L Normal 3.7-5.3 [facility] Comment on above: Performed By: #### B MPX, PT, CBC #### [facility] [address] [place], [place] [phone] Drainage Inspector: Mary Astorga MD Sodium [Moles/Vol] 139 mmol/L Normal 136-145 [facility] Comment on above: Performed By: #### B MPX, PT, CBC #### [facility] [address] [place], [place] [id number] Drainage Inspector: Mary Astorga MD Urea nitrogen [Mass/Vol] 16 mg/dL Normal 8-23 [facility] Comment on above: Performed By: #### B MPX, PT, CBC #### [facility] [address] [place] [address] Drainage Inspector: Mary Astorga MD CBCon 05-13-2024 Erythrocyte distribution width (RBC) [Ratio] 14.7 % High 11.8-14.4 [facility] Comment on above: Performed By: #### L IPR #### [address] [address] Drainage Inspector: Kale Orona MD Hematocrit (Bld) [Volume fraction] 40.3 % Low 40.7-50.3 [facility] Comment on above: Performed By: #### L IPR #### [address] [address] Drainage Inspector: Kale Orona MD Hemoglobin (Bld) [Mass/Vol] 13.9 g/dL Normal 13.0-17.0 [facility] Comment on above: Performed By: #### L IPR #### [address] [address] Drainage Inspector: Kale Orona MD MCH (RBC) [Entitic mass] 31.0 pg Normal 25.2-33.5 [facility] Comment on above: Performed By: #### L IPR #### [address] [address] Drainage Inspector: Kale Orona MD MCHC (RBC) [Mass/Vol] 34.5 g/dL Normal 28.4-34.8 [facility] Comment on above: Performed By: #### L IPR #### [address] [address] Drainage Inspector: Kale Orona MD MCV (RBC) [Entitic vol] 89.8 fL Normal 82.6-102.9 [facility] Comment on above: Performed By: #### L IPR #### [address] [address] Drainage Inspector: Kale Orona MD NRBC Automated 0.0 per 100 WBC Normal 0.0 [facility] Comment on above: Performed By: #### L IPR #### [address] [address] Drainage Inspector: Kale Orona MD Platelet mean volume (Bld) [Entitic vol] 9.8 fL Normal 8.1-13.5 [facility] Comment on above: Performed By: #### L IPR #### [address] [address] Drainage Inspector: Kale Orona MD Platelets (Bld) [#/Vol] 154 10*3/uL Normal 138-453 [facility] Comment on above: Performed By: #### L IPR #### [address] [address] Drainage Inspector: Kale Orona MD RBC (Bld) [#/Vol] 4.49 10*6/uL Normal 4.21-5.77 [facility] Comment on above: Performed By: #### L IPR #### [address] [address] Drainage Inspector: Kale Orona MD WBC (Bld) [#/Vol] 4.0 10*3/uL Normal 3.5-11.3 [facility] Comment on above: Performed By: #### L IPR #### [facility] [address] [place], [place] [phone] Drainage Inspector: Kale Orona MD PTon 05-13-2024 INR Coag (PPP) [Relative time] 1.2 {INR} Normal [facility] Comment on above: Result Comment: Therapeutic Range: Moderate Anticoagulant Intensity: INR = 2.0-3.0 High Anticoagulant Intensity: INR = 2.5-3.5 Performed By: #### B MPX, PT, CBC #### [facility] [address] [place], [place] 0143083 Drainage Inspector: Mary Astorga MD PT Coag (PPP) [Time] 14.8 s High 11.7-14.1 [facility] Comment on above: Performed By: #### B MPX, PT, CBC #### [facility] [address] [place] [address] [place], [place] [phone] Drainage Inspector: Mary Atsorga MD Troponinon 05-13-2024 Troponin, High Sens 26 ng/L High 0-22 [facility] Comment on above: Result Comment: High Sensitivity Troponin values cannot be compared with other Troponin methodologies. Performed By: #### T ROPI #### [facility] [address] [place] [address] [place], [place] [phone] Drainage Inspector: Mary Astorga MD Brain Natri. Peptideon 05-12 Natriuretic peptide B (Bld) [Mass/Vol] 729 pg/mL High 0-450 [facility] Comment on above: Performed By: #### L IPR #### [facility] [address] [place], [place] 1073508 Drainage Inspector: Kale Orona MD CBC with Diffon 05-12-2024 Abs. Basophil 0.03 k/uL Normal 0.00-0.20 [facility] Comment on above: Performed By: #### L IPR #### [facility] [address] [place] [address] Drainage Inspector: Kale Orona MD Abs.Imm.Granulocyte <0.03 Normal 0.00-0.30 [facility] Comment on above: Performed By: #### L IPR #### [address] [address] Drainage Inspector: Kale Orona MD Abs.Neutrophil (Seg) 2.22 k/uL Normal 1.50-8.10 [facility] Comment on above: Performed By: #### L IPR #### [address] [address] Drainage Inspector: Kale Orona MD Basophils/100 WBC (Bld) 1 % Normal 0-2 [facility] Comment on above: Performed By: #### L IPR #### [address] [address] Drainage Inspector: Kale Orona MD Eosinophils (Bld) [#/Vol] 0.11 10*3/uL Normal 0.00-0.44 [facility] Comment on above: Performed By: #### L IPR #### [address] [address] Drainage Inspector: Kale Orona MD Eosinophils/100 WBC (Bld) 3 % Normal 1-4 [facility] Comment on above: Performed By: #### L IPR #### [address] [address] Drainage Inspector: Kale Orona MD Erythrocyte distribution width (RBC) [Ratio] 14.7 % High 11.8-14.4 [facility] Comment on above: Performed By: #### L IPR #### [address] [address] Drainage Inspector: Kale Orona MD Hematocrit (Bld) [Volume fraction] 38.8 % Low 40.7-50.3 [facility] Comment on above: Performed By: #### L IPR #### [address] [place] [address] Drainage Inspector: Kale Orona MD Hemoglobin (Bld) [Mass/Vol] 13.3 g/dL Normal 13.0-17.0 [facility] Comment on above: Performed By: #### L IPR #### [address] [address] Drainage Inspector: Kale Orona MD Immature granulocytes/100 WBC (Bld) 1 % High 0 [facility] Comment on above: Performed By: #### L IPR #### [address] [address] Drainage Inspector: Kale Orona MD Lymphocytes (Bld) [#/Vol] 0.61 10*3/uL Low 1.10-3.70 [facility] Comment on above: Performed By: #### L IPR #### [address] [address] Drainage Inspector: Kale Orona MD Lymphocytes/100 WBC (Bld) 17 % Low 24-43 [facility] Comment on above: Performed By: #### L IPR #### [address] [address] Drainage Inspector: Kale Orona MD MCH (RBC) [Entitic mass] 31.0 pg Normal 25.2-33.5 [facility] Comment on above: Performed By: #### L IPR #### [address] [address] Drainage Inspector: Kale Orona MD MCHC (RBC) [Mass/Vol] 34.3 g/dL Normal 28.4-34.8 [facility] Comment on above: Performed By: #### L IPR #### [address] [address] Drainage Inspector: Kale Orona MD MCV (RBC) [Entitic vol] 90.4 fL Normal 82.6-102.9 [facility] Comment on above: Performed By: #### L IPR #### [address] [address] Drainage Inspector: Kale Orona MD Monocytes (Bld) [#/Vol] 0.59 10*3/uL Normal 0.10-1.20 [facility] Comment on above: Performed By: #### L IPR #### [address] [address] Drainage Inspector: Kale Orona MD Monocytes/100 WBC (Bld) 17 % High 3-12 [facility] Comment on above: Performed By: #### L IPR #### [address] [address] Drainage Inspector: Kale Orona MD Neutrophil (Seg) 61 % Normal 36-65 [facility] Comment on above: Performed By: #### L IPR #### [address] [address] Drainage Inspector: Kale Orona MD NRBC Automated 0.0 per 100 WBC Normal 0.0 [facility] Comment on above: Performed By: #### L IPR #### [address] [address] Drainage Inspector: Kale Orona MD Platelet mean volume (Bld) [Entitic vol] 9.3 fL Normal 8.1-13.5 [facility] Comment on above: Performed By: #### L IPR #### [address] [address] Drainage Inspector: Kale Orona MD Platelets (Bld) [#/Vol] 153 10*3/uL Normal 138-453 [facility] Comment on above: Performed By: #### L IPR #### [address] [address] Drainage Inspector: Kale Orona MD RBC (Bld) [#/Vol] 4.29 10*6/uL Normal 4.21-5.77 [facility] Comment on above: Performed By: #### L IPR #### [employer] [address] [place] [address] Drainage Inspector: Kale Orona MD WBC (Bld) [#/Vol] 3.6 10*3/uL Normal 3.5-11.3 [facility] Comment on above: Performed By: #### L IPR #### [employer] [address] [place] [address] Drainage Inspector: Kale Orona MD CTA CHEST ABDOMEN PELVIS W C ONTRASTon 05-12-2024 CTA CHEST ABDOMEN PELVIS W CONTRAST [...] Randall Almaraz MD 05/12/24 Final result Normal [facility] Comp Metabolic Profon 2023 Albumin [Mass/Vol] 3.8 g/dL Normal 3.5-5.2 [facility] Comment on above: Performed By: #### L IPR #### [facility] [employer] [facility] [place] [address] Drainage Inspector: Kale Orona MD Albumin/Glob Ratio 1.5 Normal 1.0-2.5 [facility] Comment on above: Performed By: #### L IPR #### [facility] [employer] [address] [place], [place] [id number] Drainage Inspector: Kale Orona MD Alkaline Phos 92 U/L Normal 40-129 [facility] Comment on above: Performed By: #### L IPR #### [facility] [employer] [address] [place], [place] [id number] Drainage Inspector: Kale Orona MD ALT [Catalytic activity/Vol] 15 U/L Normal 10-50 [facility] Comment on above: Performed By: #### L IPR #### [facility] [employer] [address] [place], [place] [id number] Drainage Inspector: Kale Orona MD Anion gap [Moles/Vol] 11 mmol/L Normal 9-16 [facility] Comment on above: Performed By: #### L IPR #### [facility] [place] [address] Drainage Inspector: Kale Orona MD AST [Catalytic activity/Vol] 24 U/L Normal 10-50 [facility] Comment on above: Performed By: #### L IPR #### [address] [address] Drainage Inspector: Kale Orona MD Bilirubin [Mass/Vol] 0.6 mg/dL Normal 0.00-1.20 [facility] Comment on above: Performed By: #### L IPR #### [address] [address] Drainage Inspector: Kale Orona MD BUN/CRE Ratio 17 Normal 9-20 [facility] Comment on above: Performed By: #### L IPR #### [address] [address] Drainage Inspector: Kale Orona MD Calcium [Mass/Vol] 9.2 mg/dL Normal 8.6-10.4 [facility] Comment on above: Performed By: #### L IPR #### [address] [address] Drainage Inspector: Kale Orona MD Chloride [Moles/Vol] 106 mmol/L Normal 98-107 [facility] Comment on above: Performed By: #### L IPR #### [facility] [employer] [address] [place] [address] Drainage Inspector: Kale Orona MD CO2 [Moles/Vol] 22 mmol/L Normal 20-31 [facility] Comment on above: Performed By: #### L IPR #### [facility] [address] [place] [address] Drainage Inspector: Kale Orona MD Creatinine [Mass/Vol] 1.1 mg/dL Normal 0.70-1.20 [facility] Comment on above: Performed By: #### L IPR #### [employer] [address] [place] [address] Drainage Inspector: Kale Orona MD GFR/1.73 sq M.predicted among non-blacks MDRD (S/P/Bld) [Vol rate/Area] 69 mL/min/{1.73_m2} Normal >60 [facility] Comment on above: Result Comment: These [...] secretion. Performed By: #### L IPR #### [employer] [address] [place] [address] Drainage Inspector: Kale Orona MD Glucose [Mass/Vol] 127 mg/dL High 74-99 [facility] Comment on above: Performed By: #### L IPR #### [facility] [address] [place] [address] Drainage Inspector: Kale Orona MD Potassium [Moles/Vol] 4.6 mmol/L Normal 3.7-5.3 [facility] Comment on above: Performed By: #### L IPR #### [employer] [address] [place] [id number] Drainage Inspector: Kale Orona MD Protein [Mass/Vol] 6.3 g/dL Low 6.6-8.7 [facility] Comment on above: Performed By: #### L IPR #### [employer] [address] [place] [address] Drainage Inspector: Kale Orona MD Sodium [Moles/Vol] 139 mmol/L Normal 136-145 [facility] Comment on above: Performed By: #### L IPR #### [employer] [address] [place] [address] Drainage Inspector: Kale Orona MD Urea nitrogen [Mass/Vol] 19 mg/dL Normal 04-19 [facility] Comment on above: Performed By: #### L IPR #### [facility] [address] [place] [address] Drainage Inspector: Kale Orona MD Troponinon 05-12-2024 Troponin, High Sens 25 ng/L High 0- [facility] Comment on above: Result Comment: High Sensitivity Troponin values cannot be compared with other Troponin methodologies. Performed By: #### L IPR #### [facility] [employer] [address] [place] [address] Drainage Inspector: Kale Orona MD Troponin, High Sens 26 ng/L High [facility] Comment on above: Result Comment: High Sensitivity Troponin values cannot be compared with other Troponin methodologies. Performed By: #### L IPR #### [facility] [employer] [address] [place] [address] Drainage Inspector: Kale Orona MD XR CHEST PORTABLEon 05-12-20 [...] Elyssa Pino MD 05/12/24 Final result Normal [facility] Office Visiton 04-24-2024 Follow-up visit [id number] Tristin Powell 1940 M Date Provider Department Center 04/24/2024 RUSSEL ADAIR [facility] Family History Problem Relation Age of Onset Coronary artery disease Other Hyperlipidemia Other Hypertension Other Family Status - Relation Status Age at Other Level of Service:[address] [place] OFFICE/OUTPATIENT ESTABLISHED MOD MDM 30 MIN Normal [facility] Screenson 12-29-2023 Screens [id number] 0TIFF Normal [facility] Patient Educationon 12-26-19 24 Patient Education Oncology Prostate Cancer The prostate [...] to normal prostate cells (well differentiated). ? Aleksandr 7: This indicates that the cancer cells look somewhat similar to normal prostate cells (moderately differentiated). ? Timewell 8, 9, or 10: This indicates that [...] external be (more content not included)... Normal [facility] Provider Letteron 12-26-2023 Provider Letter FLASH LOVELACE, [address] [place] [address] Re: TRISTIN POWELL Date of : [address] ALBANIA DIAZ, TRISTIN ALEMAN was evaluated at [facility] 12/26/2023 13:00:00 As this patient has been [...] Thanks! Provider Signature: Brenna Mosquera PA-C Physician [employer] [address] [place] [address] Normal [facility] Office/Clinic Noteon 12-26-2023 Urology Office/Clinic Note [...] E&M of Est. Patient Low 20-29 Min 77573 Urnls Dip Stick Auto w/o Microscopy POC 79716 2. BPH with urinary obstruction (N40.1: Benign prostatic hyperplasia with lower urinary tract symptoms) IPSS 7 (5) QOL 1 Pt is currently taking no bladder/prostate medication and is highly satisfied with overall symptom control. No indication for treatment at this time. Continue to monitor. Ordered: Complex E&M Add on G2211 E&M of Est. Patient Low 20-29 Min 57041 3. Erectile dysfunction (N52.9: Male erectile dysfunction, unspecified) last ov: pt requesting sildenafil 100mg. was on it previously through another provider and worked well. 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 advised him to contact his shoe clerk and if they clear him then call us and I will prescribe it. today: pt never called after last ov. no concerns reported today. does not wish to pursue Sildenafil at this time. Ordered: Complex E&M Add on G2211 E&M of Est. Patient Low 20-29 Min 92684 Other obstructive and reflux uropathy (N13.8: Other obstructive and reflux uropathy) Offered continued scheduled follow up with our clinic vs following up PRN. Pt prefers the latter. We will ensure PCP continues to order annual PSA. Letter sent. Follow-up With When Contact Information BRENNA MOSQUERA PA-C, URL Only if needed [address] [place] [address] Business (1) Additional Instructions: Patient Education Prostate Cancer [...] virus vaccine, i (more content not included)... Normal [facility] Comment on above: Result Comment: Elec tronically Signed By: BRENNA MOSQUERA PA-C\Date and Time Signed: 12/26/23 13:33 EDT Lab Reportson 12-22-2023 Lab Reports [id number] 0TIFF Normal [facility] Alanine aminotransferase [En zymatic activity/volume] in Serum or PlasmaOrdered By: Eliezer Carvalho on 10-17-2023 ALT [Catalytic activity/Vol] 15 U/L 7-52 [facility] Albumin [Mass/volume] in Ser um or Plasma by Bromocresol green (BCG) dye binding methoOrdered By: Eliezer Carvalho on 10-17-2023 Albumin BCG dye [Mass/Vol] 4.0 g/dL 3.5-5.7 [facility] Alkaline phosphatase [Enzyma tic activity/volume] in Serum or PlasmaOrdered By: Eliezer Carvalho on 10-17-2023 ALP [Catalytic activity/Vol] 72 U/L 34-104 [facility] Aspartate aminotransferase [ Enzymatic activity/volume] in Serum or PlasmaOrdered By: Eliezer Carvalho on 10-17-2023 AST [Catalytic activity/Vol] 21 U/L 13-39 [facility] Basophils Auto (Bld) [#/Vol] Ordered By: Eliezer Carvalho on 10-17-2023 Basophils (Bld) [#/Vol] 0.0 10*3/uL 0.0-0.2 [facility] Basophils/100 WBC Auto (Bld) Ordered By: Eliezer Carvalho on 10-17-2023 Basophils/100 WBC (Bld) 0.7 % . [facility] Bilirubin.total [Mass/volume ] in Serum or PlasmaOrdered By: Eliezer Carvalho on 10-17-2023 Bilirubin [Mass/Vol] 0.7 mg/dL 0.3-1.0 [facility] Calcium [Mass/volume] in Ser um or PlasmaOrdered By: Eliezer Carvalho on 10-17-2023 Calcium [Mass/Vol] 9.4 mg/dL 8.6-10.3 [facility] Carbon dioxide, total [Moles /volume] in Serum or PlasmaOrdered By: Eliezer Carvalho on 10-17-2023 CO2 [Moles/Vol] 24.6 mmol/L 21.0-31.0 [facility] Chloride [Moles/volume] in S roger or PlasmaOrdered By: Eliezer Carvalho on 10-17-2023 Chloride [Moles/Vol] 108 mmol/L 98-107 [facility] Cholesterol [Mass/volume] in Serum or PlasmaOrdered By: Eliezer Carvalho on 10-17-2023 Cholesterol [Mass/Vol] 142 mg/dL 140-200 [facility] Comment on above: Chol less than 200 m g/dl low riskChol 201-239 mg/dl borderline riskChol 240 mg/dl and greater high risk Cholesterol in LDL Calc [Mas s/Vol]Ordered By: Eliezer Carvalho on 10-17-2023 Cholesterol in LDL [Mass/Vol] 79 mg/dL 0-100 [facility] Comment on above: LDL ATP III CLASSIFI CATIONLDL less than 100 mg/dL OptimalLDL 100-129 mg/dL Near or above optimalLDL 130-159 mg/dL Borderline highLDL 160-189 mg/dL HighLDL greater than 189 mg/dL Very high Cholesterol in VLDL Calc [Ma ss/Vol]Ordered By: Eliezer Carvalho on 10-17-2023 Cholesterol in VLDL [Mass/Vol] 21 mg/dL [facility] Creatinine [Mass/volume] in Serum or PlasmaOrdered By: Eliezer Carvalho on 10-17-2023 Creatinine [Mass/Vol] 1.01 mg/dL 0.70-1.30 [facility] Eosinophils Auto (Bld) [#/Vo l]Ordered By: Eliezer Carvalho on 10-17-2023 Eosinophils (Bld) [#/Vol] 0.1 10*3/uL 0.0-0.45 [facility] Eosinophils/100 WBC Auto (Bl d)Ordered By: Eliezer Carvalho on 10-17-2023 Eosinophils/100 WBC (Bld) 3.4 % . [facility] Erythrocyte distribution wid th Auto (RBC) [Ratio]Ordered By: Eliezer Carvalho on 10-17-2023 Erythrocyte distribution width (RBC) [Ratio] 14.4 % 12.0-14.8 [facility] Globulin Calc (S) [Mass/Vol] Ordered By: Eliezer Carvalho on 10-17-2023 Globulin (S) [Mass/Vol] 2.6 g/dL [facility] Glucose [Mass/volume] in Ser um or PlasmaOrdered By: Eliezer Carvalho on 10-17-2023 Glucose [Mass/Vol] 82 mg/dL 70-100 [facility] Comment on above: ADA recommended refe rence rangeRandom Glucose Reference Range is dependent on time and content of last meal. Glucose of more than 200 mg/dL in a nonstressed, ambulatory subject supports the diagnosis of Diabetes Mellitus. Hematocrit Auto (Bld) [Volum e fraction]Ordered By: Eliezer Carvalho on 10-17-2023 Hematocrit (Bld) [Volume fraction] 39.3 % 38.8-50.0 [facility] Hemoglobin [Mass/volume] in BloodOrdered By: Eliezer Carvalho on 10-17-2023 Hemoglobin (Bld) [Mass/Vol] 13.5 g/dL 13.0-17.0 [facility] Leukocytes [#/volume] correc maximilian for nucleated erythrocytes in Blood by Automated counOrdered By: Eliezer Carvalho on 10-17-2023 WBC corrected for nucl RBC Auto (Bld) [#/Vol] 3.5 10*3/uL 4.1-10.5 [facility] Lymphocytes Auto (Bld) [#/Vo l]Ordered By: Eliezer Carvalho on 10-17-2023 Lymphocytes (Bld) [#/Vol] 0.8 10*3/uL 1.00-4.8 [facility] Lymphocytes/100 WBC Auto (Bl d)Ordered By: Eliezer Carvalho on 10-17-2023 Lymphocytes/100 WBC (Bld) 22.4 % . [facility] MCH Auto (RBC) [Entitic mass ]Ordered By: Eliezer Carvalho on 10-17-2023 MCH (RBC) [Entitic mass] 30.9 pg 27.5-35.2 [facility] MCHC Auto (RBC) [Mass/Vol]Or dered By: Eliezer Carvalho on 10-17-2023 MCHC (RBC) [Mass/Vol] 34.3 g/dL 32.5-35.6 [facility] MCV Auto (RBC) [Entitic vol] Ordered By: Eliezer Carvalho on 10-17-2023 MCV (RBC) [Entitic vol] 90.1 fL 83.5-101 [facility] Monocytes Auto (Bld) [#/Vol] Ordered By: Eliezer Carvalho on 10-17-2023 Monocytes (Bld) [#/Vol] 0.6 10*3/uL 0.0-0.8 [facility] Monocytes/100 WBC Auto (Bld) Ordered By: Eliezer Carvalho on 10-17-2023 Monocytes/100 WBC (Bld) 15.8 % . [facility] Neutrophils Auto (Bld) [#/Vo l]Ordered By: Eliezer Carvalho on 10-17-2023 Neutrophils (Bld) [#/Vol] 2.0 10*3/uL 1.8-7.7 [facility] Neutrophils/100 WBC Auto (Bl d)Ordered By: Eliezer Carvalho on 10-17-2023 Neutrophils/100 WBC (Bld) 57.7 % . [facility] No Panel InformationOrdered By: Eliezer Carvalho on 10-17-2023 Estimated GFR (CKD-EPI) > 60.0 mL/Min [facility] Creatinine Clearance (Chem N/A [facility] Nucleated erythrocytes [Pres ence] in Blood by Automated countOrdered By: Eliezer Carvalho on 10-17-2023 Nucleated RBC Auto Ql (Bld) 0.4 /100{WBC} 0-0.5 [facility] Platelet mean volume Auto (B ld) [Entitic vol]Ordered By: Eliezer Carvalho on 10-17-2023 Platelet mean volume (Bld) [Entitic vol] 7.8 fL 6.6-10.1 [facility] Platelets Auto (Bld) [#/Vol] Ordered By: Eliezer Carvalho on 10-17-2023 Platelets (Bld) [#/Vol] 170 10*3/uL 150-450 [facility] Potassium [Moles/volume] in Serum or PlasmaOrdered By: Eliezer Carvalho on 10-17-2023 Potassium [Moles/Vol] 4.7 mmol/L 3.5-5.1 [facility] Protein [Mass/volume] in Ser um or PlasmaOrdered By: Eliezer Carvalho on 10-17-2023 Protein [Mass/Vol] 6.6 g/dL 6.4-8.9 [facility] RBC Auto (Bld) [#/Vol]Ordere d By: Elieezr Carvalho on 10-17-2023 RBC (Bld) [#/Vol] 4.36 10*6/uL 3.90-5.60 [facility] Serum or plasma albumin/glob ulin mass ratioOrdered By: Eliezer Carvalho on 10-17-2023 Albumin/Globulin [Mass ratio] 1.5 {ratio} [facility] Serum or plasma anion gap de terminationOrdered By: Eliezer Carvalho on 10-17-2023 Anion gap [Moles/Vol] 11.1 mmol/L 6.0-15.0 [facility] Serum or plasma high density lipoprotein (HDL) cholesterol measurementOrdered By: Eliezer Carvalho on 10-17-2023 Cholesterol in HDL [Mass/Vol] 42 mg/dL 23-92 [facility] Comment on above: HDL CHOL ATP-III CLA SSIFICATION Cardiovascular RiskHDL > or equal to 60 mg/dL LOWHDL < 40 mg/dL HIGH Serum or plasma total choles terol/high density lipoprotein (HDL) cholesterol mass ratOrdered By: Eliezer Carvalho on 10-17-2023 Cholesterol.total/Chol esterol in HDL [Mass ratio] 3.4 {ratio} <5.0 [facility] Sodium [Moles/volume] in Ser um or PlasmaOrdered By: Eliezer Carvalho on 10-17-2023 Sodium [Moles/Vol] 139 mmol/L 136-145 [facility] Triglyceride [Mass/volume] i n Serum or PlasmaOrdered By: Eliezer Carvalho on 10-17-2023 Triglyceride [Mass/Vol] 105 mg/dL 0-149 [facility] Comment on above: TRIG ATP III CLASSIF ICATIONTRIG less than 150 mg/dL NormalTRIG 150-199 mg/dL Borderline highTRIG 200-500 mg/dL High TRIG greater than 500 mg/dL Very highStandard traceable to the Center for Disease Conrtrol and Prevention (CDC) test method. Urea nitrogen [Mass/volume] in Serum or PlasmaOrdered By: Eliezer Carvalho on 10-17-2023 Urea nitrogen [Mass/Vol] 15 mg/dL 03-21 [facility] WBC Auto (Bld) [#/Vol]Ordere d By: Eliezer Carvalho on 10-17-2023 WBC (Bld) [#/Vol] 3.5 10*3/uL 4.1-10.5 [facility] Creatinine [Mass/volume] in Serum or PlasmaOrdered By: Cristian Beaver on 10-12-2023 Creatinine [Mass/Vol] 1.11 mg/dL 0.70-1.30 [facility] No Panel InformationOrdered By: Cristian Beaver on 10-12-2023 Estimated GFR (CKD-EPI) > 60.0 mL/Min [facility] Creatinine Clearance (Chem 64.55 [facility] Urea nitrogen [Mass/volume] in Serum or PlasmaOrdered By: Cristian Beaver on 10-12-2023 Urea nitrogen [Mass/Vol] 18 mg/dL 03-21 [facility] PROF CHEM 8 (BAS METB)on Anion gap [Moles/Vol] 10.5 mmol/L Normal [facility] Comment on above: Performed By: #### B MP #### [facility] [address] [address] [address] Benedict Edmondson Calcium [Mass/Vol] 9.5 mg/dL Normal 8.5-10.1 [facility] Comment on above: Performed By: #### B MP #### [facility] [address] [address] [address] Benedict Edmondson Chloride [Moles/Vol] 106 mmol/L Normal 98-107 [facility] Comment on above: Performed By: #### B MP #### [facility] [address] [address] [address] Benedict Edmondson CO2 [Moles/Vol] 28.8 mmol/L Normal 21.0-32.0 [facility] Comment on above: Performed By: #### B MP #### [facility] [address] [address] [address] Benedict Edmondson Creatinine [Mass/Vol] 1.28 mg/dL Normal 0.70-1.30 [facility] Comment on above: Performed By: #### B MP #### [facility] [address] [address] [address] Benedict Edmondson EGFR-AF MALTESE >60 Normal >=60 [facility] Comment on above: Performed By: #### B MP #### [facility] [address] [place] [address] Dr. Benedict Edmondson EGFR-NON AF MALTESE 54 mL/min/1.73m2 Critically low >=60 [facility] Comment on above: Performed By: #### B MP #### [facility] [address] [address] [address] Benedict Edmondson Glucose [Mass/Vol] 97 mg/dL Normal 74-106 [facility] Comment on above: Performed By: #### B MP #### [facility] [address] [place] [address] Dr. Benedict Edmondson Potassium [Moles/Vol] 4.3 mmol/L Normal 3.5-5.1 [facility] Comment on above: Performed By: #### B MP #### [facility] [address] [place] [address] Dr. Benedict Edmondson Sodium [Moles/Vol] 141 mmol/L Normal 136-145 [facility] Comment on above: Performed By: #### B MP #### [facility] [address] [address] [address] Benedict Edmondson Urea nitrogen [Mass/Vol] 17.0 mg/dL Normal 7.0-18.0 [facility] Comment on above: Performed By: #### B MP #### [facility] [address] [address] [address] Benedict Edmondson Urea nitrogen/Creatinine [Mass ratio] 13.3 mg/mg Normal [facility] Comment on above: Performed By: #### B MP #### [facility] [address] [place] [address] Dr. Benedict Edmondson PROF 14(COMP METB)on 023 Albumin [Mass/Vol] 3.1 g/dL Critically low 3.4-5.0 [facility] Comment on above: Performed By: #### C MP #### [facility] [address] [place] [address] Dr. Benedict Edmondson Albumin/Globulin [Mass ratio] 0.8 {ratio} Normal [facility] Comment on above: Performed By: #### C MP #### [facility] [address] [place] [address] Dr. Benedict Edmondson ALP [Catalytic activity/Vol] 83 U/L Normal 46-116 [facility] Comment on above: Performed By: #### C MP #### [facility] [address] [place] [address] Dr. Benedict Edmondson ALT [Catalytic activity/Vol] 29 U/L Normal 16-63 [facility] Comment on above: Performed By: #### C MP #### [facility] [address] [place] [address] Dr. Benedict Edmondson Anion gap [Moles/Vol] 12.9 mmol/L Normal [facility] Comment on above: Performed By: #### C MP #### [facility] [address] [place] [address] Dr. Benedict Edmondson AST [Catalytic activity/Vol] 31 U/L Normal 15-37 [facility] Comment on above: Performed By: #### C MP #### [facility] [address] [place] [address] Dr. Benedict Edmondson Bilirubin [Mass/Vol] 1.0 mg/dL Normal 0.2-1.0 [facility] Comment on above: Performed By: #### C MP #### [facility] [address] [place] [address] Dr. Benedict Edmondson Calcium [Mass/Vol] 9.2 mg/dL Normal 8.5-10.1 [facility] Comment on above: Performed By: #### C MP #### [facility] [address] [address] [address] Benedict Edmondson Chloride [Moles/Vol] 102 mmol/L Normal 98-107 [facility] Comment on above: Performed By: #### C MP #### [facility] [address] [address] [address] Benedict Edmondson CO2 [Moles/Vol] 27.0 mmol/L Normal 21.0-32.0 [facility] Comment on above: Performed By: #### C MP #### [facility] [address] [address] [address] Benedict Edmondson Creatinine [Mass/Vol] 2.03 mg/dL Critically high 0.70-1.30 [facility] Comment on above: Performed By: #### C MP #### [facility] [address] [address] [address] Benedict Edmondson EGFR-AF MALTESE 38 mL/min/1.73m2 Critically low >=60 [facility] Comment on above: Performed By: #### C MP #### [facility] [address] [address] [address] Benedict Edmondson EGFR-NON AF MALTESE 32 mL/min/1.73m2 Critically low >=60 [facility] Comment on above: Performed By: #### C MP #### [facility] [address] [address] [address] Benedict Edmondson Globulin (S) [Mass/Vol] 3.8 g/dL Normal [facility] Comment on above: Performed By: #### C MP #### [facility] [address] [address] [address] Benedict Edmondson Glucose [Mass/Vol] 94 mg/dL Normal 74-106 [facility] Comment on above: Performed By: #### C MP #### [facility] [address] [address] [address] Benedict Edmondson Potassium [Moles/Vol] 4.9 mmol/L Normal 3.5-5.1 [facility] Comment on above: Performed By: #### C MP #### [facility] [address] [address] [address] Benedict Edmondson Protein [Mass/Vol] 6.9 g/dL Normal 6.4-8.2 [facility] Comment on above: Performed By: #### C MP #### [facility] [address] [address] [address] Benedict Edmondson Sodium [Moles/Vol] 137 mmol/L Normal 136-145 [facility] Comment on above: Performed By: #### C MP #### [facility] [address] [address] [address] Benedict Edmondson Urea nitrogen [Mass/Vol] 34.0 mg/dL Critically high 7.0-18.0 [facility] Comment on above: Performed By: #### C MP #### [facility] [address] [place] [address] Dr. Benedict Edmondson Urea nitrogen/Creatinine [Mass ratio] 16.7 mg/mg Normal [facility] Comment on above: Performed By: #### C MP #### [facility] [address] [place] [address] Dr. Benedict Edmondson Bacteria identified Cx Nom ( Bld)on 11-08-2022 Interpretation and review of laboratory results Normal [facility] CBC Auto Differentialon 10-26 Basophils (Bld) [#/Vol] 0.02 10*3/uL [facility] Basophils/100 WBC (Bld) 0.4 % [facility] Eosinophils (Bld) [#/Vol] 0.21 10*3/uL [facility] Eosinophils/100 WBC (Bld) 3.9 % [facility] Erythrocyte distribution width (RBC) [Entitic vol] 13.4 % 11.6 - 14.8 % [facility] Hematocrit (Bld) [Volume fraction] 33.6 % Low 41.0 - 53.0 % [facility] Hemoglobin (Bld) [Mass/Vol] 11.5 g/dL Low 13.5 - 17.5 g/dL [facility] Immature granulocytes (Bld) [#/Vol] 0.02 10*3/uL [facility] Immature granulocytes/100 WBC (Bld) 0.40 % [facility] Comment on above: The IG parameter is the percentage of metamyelocytes, myelocytes and promyelocytes. An immature granulocyte count (IG) of 1% or more suggests the possibility of infection, an IG count of 3% is very likely related to an infection. Interpretation and review of laboratory results Abnormal [facility] Lymphocytes (Bld) [#/Vol] 0.62 10*3/uL Low [facility] Lymphocytes/100 WBC (Bld) 11.4 % [facility] MCH (RBC) [Entitic mass] 30.7 pg 26.0 - 34.0 pg [facility] MCHC (RBC) [Mass/Vol] 34.2 g/dL 31.0 - 37.0 g/dL [facility] MCV (RBC) [Entitic vol] 89.8 fL 80.0 - 100.0 fL [facility] Monocytes (Bld) [#/Vol] 0.78 10*3/uL [facility] Monocytes/100 WBC (Bld) 14.4 % [facility] Neutrophils (Bld) [#/Vol] 3.78 10*3/uL [facility] Neutrophils/100 WBC (Bld) 69.5 % [facility] Nucleated RBC (Bld) [#/Vol] 0.00 10*3/uL [facility] Nucleated RBC/100 WBC (Bld) [Ratio] 0.0 % [facility] Platelet mean volume (Bld) [Entitic vol] 9.7 fL 9.4 - 12.4 fL [facility] Platelets (Bld) [#/Vol] 170 10*3/uL [facility] RBC (Bld) [#/Vol] 3.74 10*6/uL Low [facility] WBC (Bld) [#/Vol] 5.43 10*3/uL [facility] - Microbiology an d Antimicrobial susceptibilityon 11-08-2022 Bacteria identified Cx Nom (Bld) No Growth After 5 Days [facility] h Magnesium Levelon 11-08-2022 Magnesium [Mass/Vol] 2.3 mg/dL 1.6 - 2 .4 mg/dL [facility] Magnesium [Mass/Vol]on 11-08 Interpretation and review of laboratory results Normal [facility] Renal function 2000 panelon 11-08-2022 Albumin [Mass/Vol] 3.3 g/dL 3.2 - 5.2 g/dL [facility] Anion gap [Moles/Vol] 13 mmol/L 10 - 2 0 mmol/L [facility] Calcium [Mass/Vol] 9.3 mg/dL 8.4 - 10. 2 mg/dL [facility] Chloride [Moles/Vol] 104 mmol/L 98 - 10 8 mmol/L [facility] Creatinine [Mass/Vol] 1.16 mg/dL 0.80 - 1.30 mg/dL [facility] GFR/1.73 sq M.predicted CKD-EPI (S/P/Bld) [Vol rate/Area] 62 - PINF [facility] Comment on above: Estimated GFR was ca lculated using the 2020 CKD-EPI creatinine equation. Glucose [Mass/Vol] 114 mg/dL High 65 - 99 mg/dL [facility] HCO3 [Moles/Vol] 24 mmol/L 21 - 32 mmol/L [facility] Interpretation and review of laboratory results Abnormal [facility] Phosphate [Mass/Vol] 2.7 mg/dL 2.3 - 3 .7 mg/dL [facility] Potassium [Moles/Vol] 4.1 mmol/L 3.5 - 5.1 mmol/L [facility] Sodium [Moles/Vol] 137 mmol/L 135 - 145 mmol/L [facility] Urea nitrogen [Mass/Vol] 24 mg/dL 8 - 25 mg/dL [facility] Urea nitrogen/Creatinine [Mass ratio] 20.7 mg/mg High 10.0 - 20.0 [facility] has implemented the eGFR calculation approach that does not have a coefficient for race that conforms to the NKF-ASN Task Force Recommendations. [facility] XR Chest 1 Viewon 11-08-2022 1. Prior [...] pneumothorax or acute osseous change otherwise suspected. [facility] Workstation ID: [id number] GE RIS EXAMINATION: XR CHEST PA/AP 11/08/2022 8:22 AM [...] A total of two images were obtained. [place] RIS Romulo Case M D - 11/08/2022 EXAMINATION: [...] pneumothorax or acute osseous change otherwise suspected. [facility] Workstation ID: [id number] [facility] Radiology Study observation (narrative) [facility] XR Chest 1 ViewOrdered By: Larisa Case on 11-08-2022 [facility] Work Phone: CBC Auto Differentialon 10-26 Basophils (Bld) [#/Vol] 0.02 10*3/uL [facility] Basophils/100 WBC (Bld) 0.3 % [facility] Eosinophils (Bld) [#/Vol] 0.18 10*3/uL [facility] Eosinophils/100 WBC (Bld) 3.0 % [facility] Erythrocyte distribution width (RBC) [Entitic vol] 13.7 % 11.6 - 14.8 % [facility] Hematocrit (Bld) [Volume fraction] 34.1 % Low 41.0 - 53.0 % [facility] Hemoglobin (Bld) [Mass/Vol] 11.3 g/dL Low 13.5 - 17.5 g/dL [facility] Immature granulocytes (Bld) [#/Vol] 0.05 10*3/uL [facility] Immature granulocytes/100 WBC (Bld) 0.80 % [facility] Comment on above: The IG parameter is the percentage of metamyelocytes, myelocytes and promyelocytes. An immature granulocyte count (IG) of 1% or more suggests the possibility of infection, an IG count of 3% is very likely related to an infection. Interpretation and review of laboratory results Abnormal [facility] Lymphocytes (Bld) [#/Vol] 0.68 10*3/uL Low [facility] Lymphocytes/100 WBC (Bld) 11.4 % [facility] MCH (RBC) [Entitic mass] 30.1 pg 26.0 - 34.0 pg [facility] MCHC (RBC) [Mass/Vol] 33.1 g/dL 31.0 - 37.0 g/dL [facility] MCV (RBC) [Entitic vol] 90.9 fL 80.0 - 100.0 fL [facility] Monocytes (Bld) [#/Vol] 0.74 10*3/uL [facility] Monocytes/100 WBC (Bld) 12.4 % [facility] Neutrophils (Bld) [#/Vol] 4.31 10*3/uL [facility] Neutrophils/100 WBC (Bld) 72.1 % [facility] Nucleated RBC (Bld) [#/Vol] 0.00 10*3/uL [facility] Nucleated RBC/100 WBC (Bld) [Ratio] 0.0 % [facility] Platelet mean volume (Bld) [Entitic vol] 9.8 fL 9.4 - 12.4 fL [facility] Platelets (Bld) [#/Vol] 157 10*3/uL [facility] RBC (Bld) [#/Vol] 3.75 10*6/uL Low [facility] eah WBC (Bld) [#/Vol] 5.98 10*3/uL [facility] 12 Leadon 11-07-2022 Atrial Rate 83 BPM [facility] P-R Interval 192 ms [facility] Q-T Interval 398 ms [facility] QRS Duration 98 ms [facility] QTC Calculation (Bezet) 467 ms [facility] R [place] 30 degrees [facility] T [place] 20 degrees [facility] Ventricular Rate 83 BPM [facility] Sinus rhythm with occasional Premature ventricular complexes and Premature atrial complexes Otherwise normal ECG Confirmed by YAW DIAZ, [facility] ([id number]) on 11/07/2022 11:37:24 AM MUSE [facility] Magnesium Levelon 11-07-2022 Magnesium [Mass/Vol] 2.1 mg/dL 1.6 - 2 .4 mg/dL [facility] Magnesium [Mass/Vol]on 11-07 Interpretation and review of laboratory results Normal [facility] Renal function 2000 panelon 11-07-2022 Albumin [Mass/Vol] 3.1 g/dL Low 3.2 - 5.2 g/dL [facility] Anion gap [Moles/Vol] 16 mmol/L 10 - 2 0 mmol/L [facility] Calcium [Mass/Vol] 8.8 mg/dL 8.4 - 10. 2 mg/dL [facility] Chloride [Moles/Vol] 101 mmol/L 98 - 10 8 mmol/L [facility] Creatinine [Mass/Vol] 1.34 mg/dL High 0.80 - 1.30 mg/dL [facility] GFR/1.73 sq M.predicted CKD-EPI (S/P/Bld) [Vol rate/Area] 53 Low - PINF [facility] Comment on above: Estimated GFR was ca lculated using the 2020 CKD-EPI creatinine equation. Glucose [Mass/Vol] 102 mg/dL High 65 - 99 mg/dL [facility] HCO3 [Moles/Vol] 23 mmol/L 21 - 32 mmol/L [facility] Interpretation and review of laboratory results Abnormal [facility] Phosphate [Mass/Vol] 3.1 mg/dL 2.3 - 3 .7 mg/dL [facility] Potassium [Moles/Vol] 3.8 mmol/L 3.5 - 5.1 mmol/L [facility] Sodium [Moles/Vol] 136 mmol/L 135 - 145 mmol/L [facility] Urea nitrogen [Mass/Vol] 26 mg/dL High 8 - 25 mg/dL [facility] Urea nitrogen/Creatinine [Mass ratio] 19.4 mg/mg 10.0 - 20.0 [facility] has implemented the eGFR calculation approach that does not have a coefficient for race that conforms to the NKF-ASN Task Force Recommendations. [facility] TSH DL <= 0.005 mIU/L Qnon 0 11-07-2022 Interpretation and review of laboratory results Normal [facility] TSH Qn 1.75 m[IU]/L [facility] Troponin x 2 (Now and Repeat in 3 hours)on 11-07-2022 Interp Troponin T Delta Change Probable non-acute cardiac injury or late presentation of acute injury. [facility] Interpretation and review of laboratory results Abnormal [facility] Troponin T 51 ng/L Critically high NINF - 22 ng/L [facility] Troponin T Delta % -7 % <20% of Baseline Troponin [facility] Troponin x 2 (Now and Repeat in 3 hours)Ordered By: Eloina Lama on 11-07-2022 Interpretation and review of laboratory results Abnormal [facility] Troponin T 55 ng/L Critically high NINF - 22 ng/L [facility] Troponin T Interpretation Possible acute cardiac injury. [facility] Bacteria identified Aer cx N om (Sput)Ordered By: Thania Tierney on 11-06-2022 Microscopic observation Gram stain Nom (Sput) Rare WBC [facility] Microscopic observation Gram stain Nom (Sput) Many Mixed [place] [facility] Microscopic observation Gram stain Nom (Sput) Many Epithelial Cells [facility] CBC Auto Differentialon 10-26 Basophils (Bld) [#/Vol] 0.02 10*3/uL [facility] Basophils/100 WBC (Bld) 0.3 % [facility] Eosinophils (Bld) [#/Vol] 0.20 10*3/uL [facility] Eosinophils/100 WBC (Bld) 2.8 % [facility] Erythrocyte distribution width (RBC) [Entitic vol] 13.7 % 11.6 - 14.8 % [facility] Hematocrit (Bld) [Volume fraction] 37.7 % Low 41.0 - 53.0 % [facility] Hemoglobin (Bld) [Mass/Vol] 12.5 g/dL Low 13.5 - 17.5 g/dL [facility] Comment on above: Peripheral smear rev iewed manually Immature granulocytes (Bld) [#/Vol] 0.03 10*3/uL [facility] Immature granulocytes/100 WBC (Bld) 0.40 % [facility] Comment on above: The IG parameter is the percentage of metamyelocytes, myelocytes and promyelocytes. An immature granulocyte count (IG) of 1% or more suggests the possibility of infection, an IG count of 3% is very likely related to an infection. Interpretation and review of laboratory results Abnormal [facility] Lymphocytes (Bld) [#/Vol] 0.50 10*3/uL Low [facility] Lymphocytes/100 WBC (Bld) 7.1 % [facility] MCH (RBC) [Entitic mass] 29.9 pg 26.0 - 34.0 pg [facility] MCHC (RBC) [Mass/Vol] 33.2 g/dL 31.0 - 37.0 g/dL [facility] Comment on above: Cold Agglutinin pres ent MCV (RBC) [Entitic vol] 90.2 fL 80.0 - 100.0 fL [facility] Monocytes (Bld) [#/Vol] 0.66 10*3/uL [facility] Monocytes/100 WBC (Bld) 9.3 % [facility] Neutrophils (Bld) [#/Vol] 5.66 10*3/uL [facility] Neutrophils/100 WBC (Bld) 80.1 % [facility] Nucleated RBC (Bld) [#/Vol] 0.00 10*3/uL [facility] Nucleated RBC/100 WBC (Bld) [Ratio] 0.0 % [facility] Platelet mean volume (Bld) [Entitic vol] 9.9 fL 9.4 - 12.4 fL [facility] Platelets (Bld) [#/Vol] 156 10*3/uL [facility] RBC (Bld) [#/Vol] 4.18 10*6/uL Low [facility] eah WBC (Bld) [#/Vol] 7.07 10*3/uL [facility] Echocardiogram complete w co ntrastOrdered By: Obdulio Mack on 11-06-2022 EF 69.1148 % [facility] Work Phone: [facility] Work Phone: Echocardiogram complete w co ntraston 11-06-2022 Patient Info Name: TRISTIN POWELL Age: 82 years : 1940 Gender: Male Ht: 185 cm Wt: 113 kg BSA: 2.45 m2 HR: 85 bpm BP: 112 / 62 mmHg Technical Quality: Technically difficult Exam Date: 11/06/2022 11:02 AM Patient Status: Inpatient Binder Technician: Jefferson Mckeon, DEMETRIS, KIRILL Exam Type: ECHOCARDIOGRAM COMPLETE W CONTRAST Study Info Indications R06.00 - Dyspnea, unspecified - Evaluate LV function - Dyspnea Attending Physician: GARCIA, [facility] [id number] BMI: 32.98 kg/m2 Summary 1. Mild concentric [...] TDI (more content not included)... FUJI SYNAPSE Obdulio Serrano MD - 11/06/2022 Patient Info Name: TRISTIN POEWLL Age: 82 years : 1940 Gender: Male Ht: 185 cm Wt: 113 kg BSA: 2.45 m2 HR: 85 bpm BP: 112 / 62 mmHg Technical Quality: Technically difficult Exam Date: 11/06/2022 11:02 AM Patient Status: Inpatient Binder Technician: Jefferson Mckeon MHA, KIRILL Exam Type: ECHOCARDIOGRAM COMPLETE W CONTRAST Study Info Indications R06.00 - Dyspnea, unspecified - Evaluate LV function - Dyspnea Attending Physician: [facility] [id number] BMI: 32.98 kg/m2 Summary 1. Mild concentric [...] ----- (more content not included)... [facility] Radiology Study observation (narrative) [facility] Magnesium Levelon 11-06-2022 Magnesium [Mass/Vol] 2.0 mg/dL 1.6 - 2 .4 mg/dL [facility] Magnesium [Mass/Vol]on 11-06 Interpretation and review of laboratory results Normal [facility] Renal function 2000 panelon 11-06-2022 Albumin [Mass/Vol] 3.3 g/dL 3.2 - 5.2 g/dL [facility] Anion gap [Moles/Vol] 16 mmol/L 10 - 2 0 mmol/L [facility] Calcium [Mass/Vol] 8.9 mg/dL 8.4 - 10. 2 mg/dL [facility] Chloride [Moles/Vol] 102 mmol/L 98 - 10 8 mmol/L [facility] Creatinine [Mass/Vol] 1.34 mg/dL High 0.80 - 1.30 mg/dL [facility] GFR/1.73 sq M.predicted CKD-EPI (S/P/Bld) [Vol rate/Area] 53 Low - PINF [facility] Comment on above: Estimated GFR was ca lculated using the 2020 CKD-EPI creatinine equation. Glucose [Mass/Vol] 141 mg/dL High 65 - 99 mg/dL [facility] HCO3 [Moles/Vol] 24 mmol/L 21 - 32 mmol/L [facility] Interpretation and review of laboratory results Abnormal [facility] Phosphate [Mass/Vol] 3.6 mg/dL 2.3 - 3 .7 mg/dL [facility] Potassium [Moles/Vol] 3.9 mmol/L 3.5 - 5.1 mmol/L [facility] Sodium [Moles/Vol] 138 mmol/L 135 - 145 mmol/L [facility] Urea nitrogen [Mass/Vol] 26 mg/dL High 8 - 25 mg/dL [facility] Urea nitrogen/Creatinine [Mass ratio] 19.4 mg/mg 10.0 - 20.0 [facility] has implemented the eGFR calculation approach that does not have a coefficient for race that conforms to the NKF-ASN Task Force Recommendations. [facility] Sputum Aerobic CultureOrdere d By: Thania Tierney on 11-06-2022 Bacteria identified Aer cx Nom (Sput) Normal [place] After 48 Hours [facility] CBC Auto Differentialon 10-26 Basophils (Bld) [#/Vol] 0.02 10*3/uL [facility] Basophils/100 WBC (Bld) 0.3 % [facility] Eosinophils (Bld) [#/Vol] 0.18 10*3/uL [facility] Eosinophils/100 WBC (Bld) 2.7 % [facility] Erythrocyte distribution width (RBC) [Entitic vol] 13.8 % 11.6 - 14.8 % [facility] Hematocrit (Bld) [Volume fraction] 33.8 % Low 41.0 - 53.0 % [facility] Hemoglobin (Bld) [Mass/Vol] 12.1 g/dL Low 13.5 - 17.5 g/dL [facility] Immature granulocytes (Bld) [#/Vol] 0.06 10*3/uL [facility] Immature granulocytes/100 WBC (Bld) 0.90 % [facility] Comment on above: The IG parameter is the percentage of metamyelocytes, myelocytes and promyelocytes. An immature granulocyte count (IG) of 1% or more suggests the possibility of infection, an IG count of 3% is very likely related to an infection. Interpretation and review of laboratory results Abnormal [facility] Lymphocytes (Bld) [#/Vol] 0.62 10*3/uL Low [facility] Lymphocytes/100 WBC (Bld) 9.3 % [facility] MCH (RBC) [Entitic mass] 32.9 pg 26.0 - 34.0 pg [facility] MCHC (RBC) [Mass/Vol] 35.8 g/dL 31.0 - 37.0 g/dL [facility] MCV (RBC) [Entitic vol] 91.8 fL 80.0 - 100.0 fL [facility] Monocytes (Bld) [#/Vol] 0.74 10*3/uL [facility] Monocytes/100 WBC (Bld) 11.1 % [facility] Neutrophils (Bld) [#/Vol] 5.06 10*3/uL [facility] Neutrophils/100 WBC (Bld) 75.7 % [facility] Nucleated RBC (Bld) [#/Vol] 0.00 10*3/uL [facility] Nucleated RBC/100 WBC (Bld) [Ratio] 0.0 % [facility] Platelet mean volume (Bld) [Entitic vol] 9.5 fL 9.4 - 12.4 fL [facility] Platelets (Bld) [#/Vol] 164 10*3/uL [facility] RBC (Bld) [#/Vol] 3.68 10*6/uL Low [facility] WBC (Bld) [#/Vol] 6.68 10*3/uL [facility] Magnesium Levelon 03-11-2023 Magnesium [Mass/Vol] 2.2 mg/dL 1.6 - 2 .4 mg/dL [facility] Magnesium [Mass/Vol]on 11-05 Interpretation and review of laboratory results Normal [facility] Renal function 2000 panelon 11-05-2022 Albumin [Mass/Vol] 3.1 g/dL Low 3.2 - 5.2 g/dL [facility] Anion gap [Moles/Vol] 16 mmol/L 10 - 2 0 mmol/L [facility] Calcium [Mass/Vol] 8.6 mg/dL 8.4 - 10. 2 mg/dL [facility] Chloride [Moles/Vol] 101 mmol/L 98 - 10 8 mmol/L [facility] Creatinine [Mass/Vol] 1.20 mg/dL 0.80 - 1.30 mg/dL [facility] GFR/1.73 sq M.predicted CKD-EPI (S/P/Bld) [Vol rate/Area] 60 - PINF [facility] Comment on above: Estimated GFR was ca lculated using the 2020 CKD-EPI creatinine equation. Glucose [Mass/Vol] 114 mg/dL High 65 - 99 mg/dL [facility] HCO3 [Moles/Vol] 22 mmol/L 21 - 32 mmol/L [facility] Interpretation and review of laboratory results Abnormal [facility] Phosphate [Mass/Vol] 4.3 mg/dL High 2.3 - 3 .7 mg/dL [facility] Potassium [Moles/Vol] 3.7 mmol/L 3.5 - 5.1 mmol/L [facility] Sodium [Moles/Vol] 135 mmol/L 135 - 145 mmol/L [facility] Urea nitrogen [Mass/Vol] 22 mg/dL 8 - 25 mg/dL [facility] Urea nitrogen/Creatinine [Mass ratio] 18.3 mg/mg 10.0 - 20.0 [facility] has implemented the eGFR calculation approach that does not have a coefficient for race that conforms to the NKF-ASN Task Force Recommendations. [facility] CBC Auto Differentialon 10-26 Basophils (Bld) [#/Vol] 0.01 10*3/uL [facility] Basophils/100 WBC (Bld) 0.2 % [facility] Eosinophils (Bld) [#/Vol] 0.11 10*3/uL [facility] Eosinophils/100 WBC (Bld) 1.7 % [facility] Erythrocyte distribution width (RBC) [Entitic vol] 13.9 % 11.6 - 14.8 % [facility] Hematocrit (Bld) [Volume fraction] 36.9 % Low 41.0 - 53.0 % [facility] Hemoglobin (Bld) [Mass/Vol] 13.0 g/dL Low 13.5 - 17.5 g/dL [facility] Immature granulocytes (Bld) [#/Vol] 0.06 10*3/uL [facility] Immature granulocytes/100 WBC (Bld) 0.90 % [facility] Comment on above: The IG parameter is the percentage of metamyelocytes, myelocytes and promyelocytes. An immature granulocyte count (IG) of 1% or more suggests the possibility of infection, an IG count of 3% is very likely related to an infection. Interpretation and review of laboratory results Abnormal [facility] Lymphocytes (Bld) [#/Vol] 0.60 10*3/uL Low [facility] Lymphocytes/100 WBC (Bld) 9.2 % [facility] MCH (RBC) [Entitic mass] 32.8 pg 26.0 - 34.0 pg [facility] MCHC (RBC) [Mass/Vol] 35.2 g/dL 31.0 - 37.0 g/dL [facility] MCV (RBC) [Entitic vol] 93.2 fL 80.0 - 100.0 fL [facility] Monocytes (Bld) [#/Vol] 0.70 10*3/uL [facility] Monocytes/100 WBC (Bld) 10.7 % [facility] Neutrophils (Bld) [#/Vol] 5.06 10*3/uL [facility] Neutrophils/100 WBC (Bld) 77.3 % [facility] Nucleated RBC (Bld) [#/Vol] 0.00 10*3/uL [facility] Nucleated RBC/100 WBC (Bld) [Ratio] 0.0 % [facility] Platelet mean volume (Bld) [Entitic vol] 9.3 fL Low 9.4 - 12.4 fL [facility] Platelets (Bld) [#/Vol] 188 10*3/uL [facility] RBC (Bld) [#/Vol] 3.96 10*6/uL Low [facility] WBC (Bld) [#/Vol] 6.54 10*3/uL [facility] COVID-19, MolecularOrdered B y: Elaine Robles on 11-04-2022 SARS-CoV-2 (COVID-19) RNA OREN+probe Ql (Resp) Not detected Not Detected [facility] Legionella Antigen, Urineon 11-04-2022 Interpretation and review of laboratory results Normal [facility] L. pneumophila Ag Ql (U) Negative Negative for Legionella antigen [facility] Comment on above: COMMENT: Results may be affected if patient is on diuretics. INTERPRETATION OF RESULTS: Test detects Legionella pneumophilia serogroup 1 antigens in urine. Legionnaires disease cannot be ruled out since other serogroups and species may also cause disease. [facility] MRSA DNA Amplified ProbeOrde red By: Joseluis Limon on 11-04-2022 MRSA DNA OREN+probe Ql (Unsp spec) Not detected Not Detected, MRSA NEGATIVE [facility] MRSA DNA OREN+probe Ql (Unsp spec)Ordered By: Joseluis Limon on 11-04-2022 Interpretation and review of laboratory results Normal [facility] Magnesium Levelon 11-04-2022 Magnesium [Mass/Vol] 2.0 mg/dL 1.6 - 2 .4 mg/dL [facility] Magnesium [Mass/Vol]on 11-04 Interpretation and review of laboratory results Normal [facility] Renal function 2000 panelon 11-04-2022 Albumin [Mass/Vol] 3.3 g/dL 3.2 - 5.2 g/dL [facility] Anion gap [Moles/Vol] 15 mmol/L 10 - 2 0 mmol/L [facility] Calcium [Mass/Vol] 9.2 mg/dL 8.4 - 10. 2 mg/dL [facility] Chloride [Moles/Vol] 105 mmol/L 98 - 10 8 mmol/L [facility] Creatinine [Mass/Vol] 0.97 mg/dL 0.80 - 1.30 mg/dL [facility] GFR/1.73 sq M.predicted CKD-EPI (S/P/Bld) [Vol rate/Area] 77 - PINF [facility] Comment on above: Estimated GFR was ca lculated using the 2020 CKD-EPI creatinine equation. Glucose [Mass/Vol] 103 mg/dL High 65 - 99 mg/dL [facility] HCO3 [Moles/Vol] 24 mmol/L 21 - 32 mmol/L [facility] Interpretation and review of laboratory results Abnormal [facility] Phosphate [Mass/Vol] 3.9 mg/dL High 2.3 - 3 .7 mg/dL [facility] Potassium [Moles/Vol] 4.4 mmol/L 3.5 - 5.1 mmol/L [facility] Sodium [Moles/Vol] 140 mmol/L 135 - 145 mmol/L [facility] Urea nitrogen [Mass/Vol] 18 mg/dL 8 - 25 mg/dL [facility] Urea nitrogen/Creatinine [Mass ratio] 18.6 mg/mg 10.0 - 20.0 [facility] has implemented the eGFR calculation approach that does not have a coefficient for race that conforms to the NKF-ASN Task Force Recommendations. [facility] Respiratory pathogens DNA an d RNA panel OREN+non-probe (Nph)Ordered By: Shanelle Garcia on 11-04-2022 Adenovirus DNA OREN+non-probe Ql (Nph) Not detected Not Detected [facility] B. parapertussis [id number] DNA OREN+non-probe Ql (Nph) Not detected Not Detected [facility] B. pertussis toxin promoter region OREN+non-probe Ql (Nph) Not detected Not Detected [facility] C. pneumoniae DNA OREN+non-probe Ql (Nph) Not detected Not Detected [facility] FLUAV RNA OREN+non-probe Ql (Nph) Not detected Not Detected [facility] FLUBV RNA OREN+non-probe Ql (Nph) Not detected Not Detected [facility] HCoV 229E RNA OREN+non-probe Ql (Nph) Not detected Not Detected [facility] HCoV HKU1 RNA OREN+non-probe Ql (Nph) Not detected Not Detected [facility] HCoV NL63 RNA OREN+non-probe Ql (Nph) Not detected Not Detected [facility] HCoV OC43 RNA OREN+non-probe Ql (Nph) Not detected Not Detected [facility] hMPV RNA OREN+non-probe Ql (Nph) Not detected Not Detected [facility] Interpretation and review of laboratory results Normal [facility] M. pneumoniae DNA OREN+non-probe Ql (Nph) Not detected Not Detected [facility] Parainfluenza virus 1 RNA OREN+non-probe Ql (Nph) Not detected Not Detected [facility] Parainfluenza virus 2 RNA OREN+non-probe Ql (Nph) Not detected Not Detected [facility] Parainfluenza virus 3 RNA OREN+non-probe Ql (Nph) Not detected Not Detected [facility] Parainfluenza virus 4 RNA OREN+non-probe Ql (Nph) Not detected Not Detected [facility] Rhinovirus+Enterovirus RNA OREN+non-probe Ql (Nph) Not detected Not Detected [facility] RSV RNA OREN+non-probe Ql (Nph) Not detected Not Detected [facility] SARS-CoV-2 (COVID-19) RNA OREN+non-probe Ql (Nph) Not detected Not Detected [facility] S. pneumoniae Urine AntigenO rdered By: Kezia Mercedes on 11-04-2022 Interpretation and review of laboratory results Normal [facility] S. pneumoniae Ag Ql (U) Negative Presumptive Negative for Pneumococcal pneumoniae [facility] Comment on above: A negative result santo ggests no current or recent pneumococcal infection. A negative result does not rule out Streptococcus pneumoniae infection since the antigen present in the sample may be below the detection limit of the test. [facility] SARS-CoV-2 (COVID-19) RNA NA A+probe Ql (Resp)Ordered By: Elaine Robles on 11-04-2022 Interpretation and review of laboratory results Normal [facility] This test was performed under [...] at the following links: For Healthcare Providers: https://www.[facility].gov/md wandy/445044/download For Patients: https://www.fda.gov/md wandy/545630/download [facility] XR Humerus Left 2+ Views (St andard)on 11-04-2022 1. Mineralization within normal limits. 2. No acute fractures or dislocations. No aggressive periosteal reaction or destructive osseous changes. 3. Moderate AC joint degeneration. 4. Moderate to large triceps enthesophyte. 5. Curvilinear left lower lung base scarring/atelectasis. Workstation ID: [id number] GE RIS EXAMINATION: XR HUMERUS LEFT 2+ VIEWS (STANDARD) HISTORY: pain, swelling Injury/Trauma or Illness?:Illness/Other How long have you had these symptoms (acute/chronic)?:Acute Reason for exam?:pain, swelling History of cancer?:unk Surgeries, chemotherapy, or radiation?:YES J18.9 Community acquired pneumonia of left lower lobe of lung COMPARISON: None TECHNIQUE: Frontal and lateral views of the left humerus. FINDINGS: As below. Gustavo Alvarez MD - 11/04/2022 EXAMINATION: XR HUMERUS LEFT [...] base scarring/atelectasis. Workstation ID: [id number] [facility] Radiology Study observation (narrative) [facility] XR Humerus Left 2+ Views (St andard)Ordered By: Gustavo Muro on 11-04-2022 [facility] Work Phone: Basic metabolic 2000 panelon 11-03-2022 Anion gap [Moles/Vol] 14 mmol/L 10 - 2 0 mmol/L [facility] Calcium [Mass/Vol] 9.5 mg/dL 8.4 - 10. 2 mg/dL [facility] Chloride [Moles/Vol] 101 mmol/L 98 - 10 8 mmol/L [facility] Creatinine [Mass/Vol] 1.13 mg/dL 0.80 - 1.30 mg/dL [facility] GFR/1.73 sq M.predicted CKD-EPI (S/P/Bld) [Vol rate/Area] 64 - PINF [facility] Comment on above: Estimated GFR was ca lculated using the 2020 CKD-EPI creatinine equation. Glucose [Mass/Vol] 92 mg/dL 65 - 99 mg/dL [facility] HCO3 [Moles/Vol] 24 mmol/L 21 - 32 mmol/L [facility] Interpretation and review of laboratory results Normal [facility] Potassium [Moles/Vol] 4.3 mmol/L 3.5 - 5.1 mmol/L [facility] Sodium [Moles/Vol] 135 mmol/L 135 - 145 mmol/L [facility] Urea nitrogen [Mass/Vol] 20 mg/dL 8 - 25 mg/dL [facility] Urea nitrogen/Creatinine [Mass ratio] 17.7 mg/mg 10.0 - 20.0 [facility] y Services has implemented the eGFR calculation approach that does not have a coefficient for race that conforms to the NKF-ASN Task Force Recommendations. [facility] CBC Auto Differentialon 030 Basophils (Bld) [#/Vol] 0.03 10*3/uL [facility] Basophils/100 WBC (Bld) 0.4 % [facility] Eosinophils (Bld) [#/Vol] 0.18 10*3/uL [facility] Eosinophils/100 WBC (Bld) 2.2 % [facility] Erythrocyte distribution width (RBC) [Entitic vol] 14.3 % 11.6 - 14.8 % [facility] Hematocrit (Bld) [Volume fraction] 40.7 % Low 41.0 - 53.0 % [facility] Hemoglobin (Bld) [Mass/Vol] 13.4 g/dL Low 13.5 - 17.5 g/dL [facility] Immature granulocytes (Bld) [#/Vol] 0.06 10*3/uL [facility] Immature granulocytes/100 WBC (Bld) 0.70 % [facility] Comment on above: The IG parameter is the percentage of metamyelocytes, myelocytes and promyelocytes. An immature granulocyte count (IG) of 1% or more suggests the possibility of infection, an IG count of 3% is very likely related to an infection. Interpretation and review of laboratory results Abnormal [facility] Lymphocytes (Bld) [#/Vol] 0.70 10*3/uL Low [facility] Lymphocytes/100 WBC (Bld) 8.7 % [facility] MCH (RBC) [Entitic mass] 30.5 pg 26.0 - 34.0 pg [facility] MCHC (RBC) [Mass/Vol] 32.9 g/dL 31.0 - 37.0 g/dL [facility] Comment on above: Cold Agglutinin pres ent MCV (RBC) [Entitic vol] 92.7 fL 80.0 - 100.0 fL [facility] Monocytes (Bld) [#/Vol] 0.68 10*3/uL [facility] Monocytes/100 WBC (Bld) 8.4 % [facility] Neutrophils (Bld) [#/Vol] 6.41 10*3/uL [facility] Neutrophils/100 WBC (Bld) 79.6 % [facility] Nucleated RBC (Bld) [#/Vol] 0.00 10*3/uL [facility] Nucleated RBC/100 WBC (Bld) [Ratio] 0.0 % [facility] Platelet mean volume (Bld) [Entitic vol] 10.0 fL 9.4 - 12.4 fL [facility] Platelets (Bld) [#/Vol] 192 10*3/uL [facility] RBC (Bld) [#/Vol] 4.39 10*6/uL Low [facility] eah WBC (Bld) [#/Vol] 8.06 10*3/uL [facility] CRP [Mass/Vol]on 11-03-2022 Interpretation and review of laboratory results Abnormal [facility] CRP, Inflammationon 11-04-19 CRP [Mass/Vol] 35.4 mg/L High 0.0 - 10.0 mg/L [facility] CT Pulmonary Arterieson No evidence for acute pulmonary embolism. Left lower lobe pneumonia. Workstation ID: [id number] [employer] EXAMINATION: CT PULMONARY ARTERIES HISTORY: ORDERING SYSTEM [...] acute findings. CHEST WALL: No acute abnormality. [facility] Silvio Dhillon MD - 11/03/2022 EXAMINATION: CT [...] lobe pneumonia. Workstation ID: [id number] [facility] Radiology Study observation (narrative) [facility] CT Pulmonary ArteriesOrdered By: Silvio Dhillon on 11-03-2022 [facility] Work Phone: EKG 12-leadon 11-03-2022 Atrial Rate 86 BPM [facility] P [place] 11 degrees [facility] P-R Interval 114 ms [facility] Q-T Interval 386 ms [facility] QRS Duration 88 ms [facility] QTC Calculation (Bezet) 461 ms [facility] R [place] 46 degrees [facility] T [place] 33 degrees [facility] Ventricular Rate 86 BPM [facility] th Normal sinus rhythm Normal ECG Confirmed by PIERCE MOREAU DO ([id number]) on 11/03/2022 4:55:18 PM [facility] ESR Westergren method (Bld) [Velocity]on 11-03-2022 ESR (Bld) [Velocity] 30 mm/h High [facility] Interpretation and review of laboratory results Abnormal [facility] Gold Topon 11-03-2022 Extra Tube Hold for add-ons. [facility] Comment on above: Auto resulted. NT Pro BNPon 11-03-2022 Natriuretic peptide.B prohormone N-Terminal [Mass/Vol] 429 pg/mL High 0 - 300 pg/mL [facility] Natriuretic peptide.B prohor mark N-Terminal [Mass/Vol]on 11-03-2022 Interpretation and review of laboratory results Abnormal [facility] Pride Study Cut-offs Rule In: < /= 50 Years >450 pg/mL 51 Years - 75 Years >900 pg/mL 76 Years - 99 Years >1800 pg/mL Rule Out: All patients <300 pg/mL [facility] No Panel Informationon 11-03 Extra Tube Hold for add-ons. [facility] Comment on above: Auto resulted. [facility] TroponinOrdered By: Randal souza on 11-03-2022 Interp Troponin T Delta Change Probable non-acute cardiac injury or late presentation of acute injury. [facility] Interpretation and review of laboratory results Abnormal [facility] Troponin T 119 ng/L Critically high NINF - 22 ng/L [facility] Troponin T Delta % 1 % <20% of Baseline Troponin [facility] TroponinOrdered By: Rhonda Bland on 11-03-2022 Interpretation and review of laboratory results Abnormal [facility] Troponin T 117 ng/L Critically high NINF - 22 ng/L [facility] Troponin T Interpretation Possible acute cardiac injury. [facility] UrinalysisOrdered By: Calixto Pino on 11-03-2022 Bacteria Auto Ql (U) None Seen None Se en /hpf [facility] Bilirubin Ql (U) Negative Negative [facility] Clarity Refractometry automated (U) Clear Clear [facility] Color (U) Yellow Colorless, Yellow [facility] Glucose Auto test strip (U) [Mass/Vol] Negative Negative mg/dL [facility] Hemoglobin Auto test strip Ql (U) Negative Negative [facility] Interpretation and review of laboratory results Abnormal [facility] Ketones (U) [Mass/Vol] Negative Negat tatum mg/dL [facility] Leukocyte esterase Auto test strip Ql (U) Negative Negative [facility] h Mucus Auto (Urine sed) [#/Area] Rare None Seen, Rare /lpf [facility] Nitrite Auto test strip Ql (U) Negative Negative [facility] pH (U) 7.5 [pH] High 5.0 - 7.0 [facility] Protein (U) [Mass/Vol] Negative Negat tatum mg/dL [facility] RBC Auto (Urine sed) [#/Area] 2 [facility] Specific gravity (U) [Rel density] 1.020 1.005 - 1.025 [facility] Urobilinogen (U) [Mass/Vol] mg/dL NINF - 2.0 mg/dL [facility] Microscopic examination is performed on all urinalysis samples and only positive findings are reported. The test for blood on the chemical analytic portion of urinalysis may also be positive due to hemoglobinuria and myoglobinuria and if red blood cells are present they are quantified by microscopic examination. [facility] Urine Containeron 11-03-2022 [facility] Venous Doppler BILATERAL Low er Extremitieson 11-03-2022 Patient Info Name: TRISTIN POWELL Age: 82 years : 1940 Gender: Male Exam Date: 11/03/2022 1:57 PM Patient Status: Emergency [employer] Pastor: Maggy Dempsey RVT Referring Physician: JUANA Horowitz; Indications R60.9 - Edema, unspecified Procedure Description 99223 Duplex examination using B-mode, color and spectral Doppler of extremity veins including responses to compression and other maneuvers; complete bilateral study. Conclusions * No evidence of deep or superficial vein thrombosis in the right or left lower extremities. . Report Signatures Finalized by Tera Meyer MD, RPVI, FSIR on 11/03/2022 02:59 PM FUJI SYNAPSE CV Sylvia Meyer MD - 11/03/2022 Patient Info Name: TRISTIN POWELL Age: 82 years : 1940 Gender: Male Exam Date: 11/03/2022 1:57 PM Patient Status: Emergency [employer] Pastor: Maggy Dempsey RVT Referring Physician: JUANA Horowitz; Indications R60.9 - Edema, unspecified Procedure Description 58239 Duplex examination using B-mode, color and spectral Doppler of extremity veins including responses to compression and other maneuvers; complete bilateral study. Conclusions * No evidence of deep or superficial vein thrombosis in the right or left lower extremities. . Report Signatures Finalized by Tera Meyer MD, RPVI, FSIR on 11/03/2022 02:59 PM [facility] Radiology Study observation (narrative) [facility] Venous Doppler BILATERAL Low er ExtremitiesOrdered By: Sylvia Meyer on 11-03-2022 [facility] Work Phone: XR Chest 1 [...] few scattered calcified granulomas within the lungs. [employer] Workstation ID: [id number] [employer] EXAMINATION: AP UPRIGHT CHEST: 11/03/2022 AT 1536 HOURS HISTORY: Injury/Trauma or Illness?:Illness/Other How long have you had these symptoms (acute/chronic)?:Unkno wn sob COMPARISON FILMS: AP chest 10/09/[address] [facility]. RIS Cedric Emmanuel MD - 11/03/2022 EXAMINATION: AP UPRIGHT CHEST: 11/03/2022 AT 1536 HOURS HISTORY: Injury/Trauma or Illness?:Illness/Other How long have you had these symptoms (acute/chronic)?:Unkno wn sob COMPARISON FILMS: AP chest 10/09/[address] [facility]. IMPRESSION: FINDINGS/ 1. Patient is status post [...] few scattered calcified granulomas within the lungs. [employer] Workstation ID: [id number] [facility] Radiology Study observation (narrative) [facility] XR Chest 1 ViewOrdered By: Red Emmanuel on 11-03-2022 [facility] Work Phone: XR Foot Left 3+ Views (Stand khalif)on 11-03-2022 Chronic findings without plain film evidence of acute osseous abnormalities. Workstation ID: [id number] [facility] EXAMINATION: XR FOOT LEFT 3+ VIEWS (STANDARD) [...] soft tissue edema and vascular atherosclerotic calcification. [facility] Rohit March MD - 11/03/2022 EXAMINATION: XR FOOT LEFT [...] osseous abnormalities. Workstation ID: [id number] [facility] Radiology Study observation (narrative) [facility] XR Foot Left 3+ Views (Stand khalif)Ordered By: Rohit March on 11-03-2022 [facility] Work Phone: BNPon 10-30-2022 Natriuretic peptide B (Bld) [Mass/Vol] 93 pg/mL Normal 0-100 [facility] Comment on above: Performed By: #### B SHRUB GROWER #### [place] [address] Ph. [phone] Complete Blood Count with Au to Diffon 10-30-2022 BASO# BASO#: 0.0 Normal 0.0-0.1 [facility] Comment on above: Order Comment: resut s after 30 minutes of incubation at 37degree C possible cold rbc agglutination Performed By: #### D IFF, CBCAD #### [place] [address] Ph. [phone] BASO% BASO%: 0 Normal 0-1 [facility] Comment on above: Order Comment: resut s after 30 minutes of incubation at 37degree C possible cold rbc agglutination Performed By: #### D IFF, CBCAD #### [place] [address] Ph. [phone] Eosinophils (Bld) [#/Vol] 0.2 10*3/uL Normal 0.0-0.5 [facility] Comment on above: Order Comment: resut s after 30 minutes of incubation at 37degree C possible cold rbc agglutination Performed By: #### D IFF, CBCAD #### [place] [address] Ph. [phone] Eosinophils/100 WBC (Bld) 2 % Normal 0-5 [facility] Comment on above: Order Comment: resut s after 30 minutes of incubation at 37degree C possible cold rbc agglutination Performed By: #### D IFF, CBCAD #### [place] [address] Ph. [phone] Erythrocyte distribution width (RBC) [Ratio] 13.8 % Normal 11.5-14.5 [facility] Comment on above: Order Comment: resut s after 30 minutes of incubation at 37degree C possible cold rbc agglutination Performed By: #### D IFF, CBCAD #### [place] [address] Ph. [phone] Hematocrit (Bld) [Volume fraction] 39.9 % Low 42.0-52.0 [facility] Comment on above: Order Comment: resut s after 30 minutes of incubation at 37degree C possible cold rbc agglutination Performed By: #### D IFF, CBCAD #### [place] [address] Ph. [phone] Hemoglobin (Bld) [Mass/Vol] 13.7 g/dL Normal 13.5-17.5 [facility] Comment on above: Order Comment: resut s after 30 minutes of incubation at 37degree C possible cold rbc agglutination Performed By: #### D IFF, CBCAD #### [place] [address] Ph. [phone] Lymphocytes (Bld) [#/Vol] 0.7 10*3/uL Low 1.0-4.0 [facility] Comment on above: Order Comment: resut s after 30 minutes of incubation at 37degree C possible cold rbc agglutination Performed By: #### D IFF, CBCAD #### [place] [address] Ph. [phone] Lymphocytes/100 WBC (Bld) 6 % Low 20-40 [facility] Comment on above: Order Comment: resut s after 30 minutes of incubation at 37degree C possible cold rbc agglutination Performed By: #### D IFF, CBCAD #### [place] [address] Ph. [phone] MCH (RBC) [Entitic mass] 31.3 pg Normal 27.0-35.0 [facility] Comment on above: Order Comment: resut s after 30 minutes of incubation at 37degree C possible cold rbc agglutination Performed By: #### D IFF, CBCAD #### [place] [address] Ph. [phone] MCHC (RBC) [Mass/Vol] 34.3 g/dL Normal 32.0-36.0 [facility] Comment on above: Order Comment: resut s after 30 minutes of incubation at 37degree C possible cold rbc agglutination Performed By: #### D IFF, CBCAD #### [place] [address] Ph. [phone] MCV (RBC) [Entitic vol] 91.1 fL Normal 80.0-100.0 [facility] Comment on above: Order Comment: resut s after 30 minutes of incubation at 37degree C possible cold rbc agglutination Performed By: #### D IFF, CBCAD #### [place] [address] Ph. [phone] Monocytes (Bld) [#/Vol] 0.8 10*3/uL Normal 0.3-1.0 [facility] Comment on above: Order Comment: resut s after 30 minutes of incubation at 37degree C possible cold rbc agglutination Performed By: #### D IFF, CBCAD #### [place] [address] Ph. [phone] Monocytes/100 WBC (Bld) 7 % Normal 1-15 [facility] Comment on above: Order Comment: resut s after 30 minutes of incubation at 37degree C possible cold rbc agglutination Performed By: #### D IFF, CBCAD #### [place] [address] Ph. [phone] Neutrophils (Bld) [#/Vol] 9.8 10*3/uL High 1.8-7.7 [facility] Comment on above: Order Comment: resut s after 30 minutes of incubation at 37degree C possible cold rbc agglutination Performed By: #### D IFF, CBCAD #### [place] [address] Ph. [phone] Neutrophils/100 WBC (Bld) 84 % High 50-70 [facility] Comment on above: Order Comment: resut s after 30 minutes of incubation at 37degree C possible cold rbc agglutination Performed By: #### D IFF, CBCAD #### [place] [address] Ph. [phone] Platelet mean volume (Bld) [Entitic vol] 10.1 fL Normal 9.4-12.3 [facility] Comment on above: Order Comment: resut s after 30 minutes of incubation at 37degree C possible cold rbc agglutination Performed By: #### D IFF, CBCAD #### [address] [address] Ph. [phone] Platelets (Bld) [#/Vol] 180 10*3/uL Normal 150-450 [facility] Comment on above: Order Comment: resut s after 30 minutes of incubation at 37degree C possible cold rbc agglutination Performed By: #### D IFF, CBCAD #### [place] [address] Ph. [phone] RBC (Bld) [#/Vol] 4.38 10*6/uL Low 4.70-6.10 [facility] Comment on above: Order Comment: resut s after 30 minutes of incubation at 37degree C possible cold rbc agglutination Performed By: #### D IFF, CBCAD #### [address] [address] Ph. [phone] WBC (Bld) [#/Vol] 11.6 10*3/uL High 3.7-11.0 [facility] Comment on above: Order Comment: resut s after 30 minutes of incubation at 37degree C possible cold rbc agglutination Performed By: #### D IFF, CBCAD #### [address] [address] Ph. [phone] Comprehensive Metabolic Pane alexandra 10-30-2022 Albumin [Mass/Vol] 3.6 g/dL Normal 3.5-5.0 [facility] Comment on above: Performed By: #### C MP #### [address] [address] Ph. [phone] ALP [Catalytic activity/Vol] 85 U/L Normal 38-126 [facility] Comment on above: Performed By: #### C MP #### [place] [address] Ph. [phone] ALT [Catalytic activity/Vol] 70 U/L High 0-50 [facility] Comment on above: Performed By: #### C MP #### [place] [address] Ph. [phone] AST [Catalytic activity/Vol] 38 U/L Normal 17-59 [facility] Comment on above: Performed By: #### C MP #### [place] [address] Ph. [phone] Bilirubin [Mass/Vol] 0.9 mg/dL Normal 0.2-1.3 [facility] Comment on above: Performed By: #### C MP #### [place] [address] Ph. [phone] Calcium [Mass/Vol] 8.9 mg/dL Normal 8.4-10.2 [facility] Comment on above: Performed By: #### C MP #### [place] [address] Ph. [phone] Chloride [Moles/Vol] 102 mmol/L Normal 98-107 [facility] Comment on above: Performed By: #### C MP #### [place] [address] Ph. [phone] CO2 [Moles/Vol] 25 mmol/L Normal 22-32 [facility] Comment on above: Performed By: #### C MP #### [place] [address] Ph. [phone] Creatinine [Mass/Vol] 1.02 mg/dL Normal 0.66-1.25 [facility] Comment on above: Performed By: #### C MP #### [place] [address] Ph. [phone] GFR/1.73 sq M.predicted among non-blacks MDRD (S/P/Bld) [Vol rate/Area] 73 mL/min/{1.73_m2} Normal >60 [facility] Comment on above: Result Comment: GFR calculated using CKD-EPI (2020) formula.\X0D0A\Stage 1 Kidney damage (e.g., protein in the urine) with normal GFR >=90\X0D0A\Stage 2 Kidney damage with mild decrease in GFR 60-89\X0D0A\Stage 3a Moderate decrease in GFR 45-59\X0D0A\Stage 3b Moderate decrease in GFR 30-44\X0D0A\Stage 4 Severe reduction in GFR 15-29\X0D0A\Stage 5 Kidney failure <15 Performed By: #### C MP #### [place] [address] Ph. [phone] Glucose [Mass/Vol] 103 mg/dL High 65-100 [facility] Comment on above: Performed By: #### C MP #### [place] [address] Ph. [phone] Potassium [Moles/Vol] 4.5 mmol/L Normal 3.6-5.0 [facility] Comment on above: Performed By: #### C MP #### [place] [address] Ph. [phone] Protein [Mass/Vol] 6.8 g/dL Normal 6.3-8.2 [facility] Comment on above: Performed By: #### C MP #### [place] [address] Ph. [phone] Sodium [Moles/Vol] 135 mmol/L Normal 135-145 [facility] Comment on above: Performed By: #### C MP #### [address] [place] [address] Ph. [phone] Urea nitrogen [Mass/Vol] 23 mg/dL High 9-20 [facility] Comment on above: Performed By: #### C MP #### [address] [place] [address] Ph. [phone] DIFF REVIEWon 10-30-2022 DIFF REVIEW DIFFCOM: see comments Normal [facility] Comment on above: Order Comment: slide review rbc agglutination noted Performed By: #### D IFF, CBCAD #### [place] [address] Ph. [phone] Laboratory - Chemistry and C hemistry - challengeon 10-30-2022 Natriuretic peptide B (Bld) [Mass/Vol] 93 pg/mL 0 - 100 pg/mL [facility] Albumin [Mass/Vol] 3.6 g/dL 3.5 - 5.0 g/dL [facility] ALP (Bld) [Catalytic activity/Vol] 85 U/L 38 - 126 U/L [facility] ALT [Catalytic activity/Vol] 70 U/L High 0 - 50 U/L [facility] AST [Catalytic activity/Vol] 38 U/L 17 - [...] detected Not Detected [facility] Bordetella Parapertussis ([id number]) Not detected Not Detected [facility] Bordetella Parapertussis [...] comments [facility] slide review rbc agglutination noted [facility] [place] Eosinophils Absolute 0.2 [facility] Interpretation and review of laboratory results Abnormal [facility] Lymphocytes Absolute 0.7 Low [facility] Monocytes Absolute 0.8 [facility] T Neutrophils Absolute 9.8 High [facility] resuts after 30 minutes of incubation at 37degree C possible cold rbc agglutination [facility] 1. Questionable left infrahilar infiltrate. 2. Slight bibasilar atelectasis. 3. Chronic changes and findings of COPD. [facility] EXAM: XR CHEST PORTABLE HISTORY: [...] Report electronically signed by: Dr. Dashawn Dai [facility] Dashawn Dai, DO - 10/30/2022 [...] 3. Chronic changes and findings of COPD. [employer] Phone: GFR, Estimated 73 - PINF [facility] Comment on above: GFR calculated using CKD-EPI [...] Interpretation and review of laboratory results Abnormal [facility] Radiology Study observation (narrative) [email or web address] Work Phone: No Panel InformationOrdered By: Dashawn Dai on 10-30-2022 [employer] Phone: Respiratory Panelon 10-31-19 23 Adenovirus Not detected Normal Not Detected [facility] Comment on above: Performed By: #### R ESPAN #### [place] [address] Ph. [phone] Bordetella Parapertussis ([id number]) Not detected Normal Not Detected [facility] Comment on above: Performed By: #### R ESPAN #### [place] [address] Ph. [phone] Bordetella Parapertussis (ptxP) Not detected Normal Not Detected [facility] Comment on above: Performed By: #### R ESPAN #### [place] [address] Ph. [phone] Chlamydia Pneumoniae Not detected Normal Not Detected [facility] Comment on above: Performed By: #### R ESPAN #### [address] [place] [address] Ph. [phone] Coronavirus 229E Not detected Normal Not Detected [facility] Comment on above: Performed By: #### R EDVIN #### [address] [place] [address] Ph. [phone] Coronavirus HKU1 Not detected Normal Not Detected [facility] Comment on above: Performed By: #### R EDVIN #### [address] [address] Ph. [phone] Coronavirus NL63 Not detected Normal Not Detected [facility] Comment on above: Performed By: #### R EDVIN #### [address] [address] Ph. [phone] Coronavirus OC43 Not detected Normal Not Detected [facility] Comment on above: Performed By: #### Radha PARDO #### [address] [address] Ph. [phone] COV-2 RP Not detected Normal Not Detected [facility] Comment on above: Performed By: #### Radha PARDO #### [address] [address] Ph. [phone] Human Metapneumovirus Not detected Normal Not Detected [facility] Comment on above: Performed By: #### Radha PARDO #### [address] [address] Ph. [phone] Human Rhinovirus/Enterovirus Not detected Normal Not Detected [facility] Comment on above: Performed By: #### R EDVIN #### [address] [address] Ph. [phone] Influenza A Not detected Normal Not Detected [facility] Comment on above: Performed By: #### Radha PARDO #### [address] [address] Ph. [phone] Influenza B Not detected Normal Not Detected [facility] Comment on above: Performed By: #### R EDVIN #### [address] [address] Ph. [phone] Mycoplasma Pneumoniae Not detected Normal Not Detected [facility] Comment on above: Performed By: #### R EDVIN #### [address] [address] Ph. [phone] Parainfluenza Virus 1 Not detected Normal Not Detected [facility] Comment on above: Performed By: #### R EDVIN #### [address] [address] Ph. [phone] Parainfluenza Virus 2 Not detected Normal Not Detected [facility] Comment on above: Performed By: #### Radha PARDO #### [place] [address] Ph. [phone] Parainfluenza Virus 3 Not detected Normal Not Detected [facility] Comment on above: Performed By: #### Radha PARDO #### [address] [address] Ph. [phone] Parainfluenza Virus 4 Not detected Normal Not Detected [facility] Comment on above: Performed By: #### Radha PARDO #### [address] [address] Ph. [phone] Respiratory Syncytial Virus Not detected Normal Not Detected [facility] Comment on above: Performed By: #### Radha PARDO #### [address] [address] Ph. [phone] XR CHEST PORTABLEon 10-31-19 XR CHEST PORTABLE [...] Dashawn Dai DO 10/30/22 Final result Normal [facility] XR Chest 2 Views*on 10-28-19 XR Chest 2 Views* Findings: Median sternotomy. Cardiopericardial silhouette normal. Aorta calcified and tortuous. Pulmonary vasculature normal. Lungs hyperinflated. Scarring left lung base. Mild blunting right costophrenic angle. IMPRESSION: Small right pleural effusion versus pleural thickening. Emphysema. Report reported and signed by Joe Davis on 10/27/2022 1621 Normal [facility] CT CHEST WITHOUT CONTRASTon 05-11-2022 CT CHEST [...] intrathoracic adenopathy. 6. Small sliding hiatal hernia. [employer] Workstation ID: [id number] Dictated by: CRISTIAN BURR on MonMay 12, 2022 1:59:45 PM EDT Transcribed by: CHARLIE PETERSEN on MonMay 12, 2022 2:42:35 PM EDT Finalized by: CRISTIAN BURR on MonMay 12, 2022 5:26:02 PM EDT Normal [facility] Comment on above: Order Comment: Injur y/Trauma or Illness?:Illness/Other How long have you had these symptoms (acute/chronic)?:Chronic Reason for exam?:lung nodule f/u- pt has no current complaints Type of Exam?:Initial Additional signs and symptoms?:n/a Creatinine and Glomerular fi ltration rate.predicted panel (S/P/Bld)Ordered By: Cristian Beaver on 04-25-2022 Creatinine [Mass/Vol] 1.16 mg/dL 0.64-1.27 [facility] Estimated glomerular filtrat ion rate (GFR) non- AmericanOrdered By: Cristian Beaver on 04-25-2022 GFR/1.73 sq M.predicted among non-blacks MDRD (S/P/Bld) [Vol rate/Area] 60 mL/Min [facility] No Panel InformationOrdered By: Cristian Beaver on 04-25-2022 Estimated GFR () > 60 mL/Min [facility] Comment on above: GFR estimated refere nce range: According to KDOQI guidelines, <60 ml/min/1.73m2 is sufficient to diagnose a patient with chronic kidney disease. Pharmacy Creatinine Clearance (Chem 64.62 [facility] Serum or plasma urea nitroge n measurement (mass/volume)Ordered By: Cristian Beaver on 04-25-2022 Urea nitrogen [Mass/Vol] 14 mg/dL 05-20 [facility] COVID-19, MolecularOrdered B y: Freddie Avila on 04-15-2022 SARS-CoV-2 (COVID-19) RNA OREN+probe Ql (Resp) Not detected Not Detected [facility] CT Angiogram Abdominal Aorta With [...] severe pancolonic diverticulosis. SZD/mll Workstation ID: [id number] [facility] EXAMINATION: CT ANGIOGRAM ABDOMINAL AORTA WITH LOWER [...] common femoral artery and profunda. 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 Below the level of the distal anastomosis, there is continuous flow in the peroneal artery with no identified flow in the anterior posterior tibial arteries. [facility] Chad Lezama MD - 04/15/2022 EXAMINATION: CT ANGIOGRAM ABDOMINAL [...] common femoral artery and profunda. The left eyak SFA is occluded with extension through the [...] diverticulosis. NELYD/karie Workstation ID: [id number] [facility] CT Angiogram Abdominal Aorta With Lower ExtremityOrdered By: Chad Lezama on 04-15-2022 [facility] Work Phone: SARS-CoV-2 (COVID-19) RNA NA A+probe Ql (Resp)Ordered By: Freddie Avila on 04-15-2022 Interpretation and review of laboratory results Normal [facility] This test was performed under [...] at the following links: For Healthcare Providers: https://www.[facility].gov/md wandy/674465/download For Patients: https://www.[facility].gov/md wandy/641234/download [facility] Basic metabolic 2000 panelon 04-14-2022 Anion gap [Moles/Vol] 16 mmol/L 10 - 2 0 mmol/L [facility] Calcium [Mass/Vol] 9.5 mg/dL 8.4 - 10. 2 mg/dL [facility] Chloride [Moles/Vol] 105 mmol/L 98 - 10 8 mmol/L [facility] Creatinine [Mass/Vol] 0.96 mg/dL 0.80 - 1.30 mg/dL [facility] GFR/1.73 sq M.predicted CKD-EPI (S/P/Bld) [Vol rate/Area] 78 - PINF [facility] Comment on above: Estimated GFR was ca lculated using the 2020 CKD-EPI creatinine equation. Glucose [Mass/Vol] 93 mg/dL 65 - 99 mg/dL [facility] HCO3 [Moles/Vol] 24 mmol/L 21 - 32 mmol/L [facility] Interpretation and review of laboratory results Normal [facility] Potassium [Moles/Vol] 4.2 mmol/L 3.5 - 5.1 mmol/L [facility] Sodium [Moles/Vol] 141 mmol/L 135 - 145 mmol/L [facility] Urea nitrogen [Mass/Vol] 13 mg/dL 8 - 25 mg/dL [facility] Urea nitrogen/Creatinine [Mass ratio] 13.5 mg/mg 10 - 20 [facility] has implemented the eGFR calculation approach that does not have a coefficient for race that conforms to the NKF-ASN Task Force Recommendations. [facility] CBC Auto Differentialon 03-28 Basophils (Bld) [#/Vol] 0.03 10*3/uL [facility] Basophils/100 WBC (Bld) 0.5 % [facility] Eosinophils (Bld) [#/Vol] 0.11 10*3/uL [facility] Eosinophils/100 WBC (Bld) 1.9 % [facility] Erythrocyte distribution width (RBC) [Entitic vol] 13.7 % 11.6 - 14.8 % [facility] Hematocrit (Bld) [Volume fraction] 41.7 % 41 - 53 % [facility] Hemoglobin (Bld) [Mass/Vol] 14.0 g/dL 13.5 - 17.5 g/dL [facility] Immature granulocytes (Bld) [#/Vol] 0.03 10*3/uL [facility] Immature granulocytes/100 WBC (Bld) 0.50 % [facility] Comment on above: The IG parameter is the percentage of metamyelocytes, myelocytes and promyelocytes. An immature granulocyte count (IG) of 1% or more suggests the possibility of infection, an IG count of 3% is very likely related to an infection. Interpretation and review of laboratory results Abnormal [facility] Lymphocytes (Bld) [#/Vol] 0.85 10*3/uL Low [facility] Lymphocytes/100 WBC (Bld) 14.9 % [facility] MCH (RBC) [Entitic mass] 31.3 pg 26 - 34 pg [facility] MCHC (RBC) [Mass/Vol] 33.6 g/dL 31 - 37 g/dL [facility] Comment on above: Cold Agglutinin pres ent MCV (RBC) [Entitic vol] 93.3 fL 80 - 100 fL [facility] Monocytes (Bld) [#/Vol] 0.66 10*3/uL [facility] Monocytes/100 WBC (Bld) 11.6 % [facility] Neutrophils (Bld) [#/Vol] 4.01 10*3/uL [facility] Neutrophils/100 WBC (Bld) 70.6 % [facility] Nucleated RBC (Bld) [#/Vol] 0.00 10*3/uL [facility] Nucleated RBC/100 WBC (Bld) [Ratio] 0.0 % [facility] Platelet mean volume (Bld) [Entitic vol] 10.6 fL 9.4 - 12.4 fL [facility] Platelets (Bld) [#/Vol] 179 10*3/uL [facility] RBC (Bld) [#/Vol] 4.47 10*6/uL Low [facility] WBC (Bld) [#/Vol] 5.69 10*3/uL [facility] CT Angiogram Abdominal Aorta With Lower Extremityon 08-18-2022 Radiology Study observation (narrative) [facility] INR Coag (PPP) [Relative abi e]on 04-14-2022 Interpretation and review of laboratory results Normal [facility] PT Coag (PPP) [Time] 13.7 s [facility] During the induction phase of oral anticoagulation, the INR may not reflect the anticoagulation status of the patient. Therapeutic ranges for INR's are: Most clinical situations: INR 2.0-3.0 Mechanical Prosthetic Valve: INR 2.5-3.5 Critical: INR >5.0 [facility] Lavender Topon 04-14-2022 Extra Tube Hold for add-ons. [facility] Comment on above: Auto resulted. [place] Topon 04-14-2022 Extra Tube Hold for add-ons. [facility] Comment on above: Auto resulted. [facility] No Panel Informationon 04-14 Extra Tube Hold for add-ons. [facility] Comment on above: Auto resulted. [facility] PT/INRon 04-14-2022 INR Coag (PPP) [Relative time] 1.1 {INR} 0.8 - 1.1 [facility] US Doppler ankle/brachial in dexon 04-14-2022 Patient Info Name: TRISTIN POWELL Age: 82 years : 1940 Gender: Male Exam Date: 04/14/2022 9:45 PM Patient Status: Emergency [employer] Pastor: Justyna Keita RVT, RDMS Attending Physician: CARSON BROCK Indications I73.9 - Peripheral vascular disease, unspecified Procedure Description 02665 Limited bilateral noninvasive physiologic studies of upper [...] by Richard Proctor on 04/14/2022 10:23 PM [facility] [place] Proctor, DO - 04/14/2022 Patient Info Name: TRISTIN POWELL Age: 82 years : 1940 Gender: Male Exam Date: 04/14/2022 9:45 PM Patient Status: Emergency [employer] Pastor: Justyna Keita RVT, RDMS Attending Physician: CARSON BROCK Indications I73.9 - Peripheral vascular disease, unspecified Procedure Description 40462 Limited bilateral noninvasive physiologic studies of upper [...] Proctor on 04/14/2022 10:23 PM [facility] Radiology Study observation (narrative) [facility] Doppler ankle/brachial in dexOrdered By: Richard Proctor on 04-14-2022 [facility] Work Phone: US Venous, Unilat, [...] by Nabor Beard on 04/14/2022 1546 Normal [facility] Specialist CREATININEon 01-28-2022 Creatinine [Mass/Vol] 1.32 mg/dL Critically high 0.70-1.30 [facility] Comment on above: Performed By: #### C LOULOU #### [facility] [address] [place] [address] Dr. Benedict Edmondson EGFR-AF MALTESE >60 Normal >=60 [facility] Comment on above: Performed By: #### C LOULOU #### [facility] [address] [address] [address] Benedict Edmondson EGFR-NON AF MALTESE >60 Normal >=60 [facility] Comment on above: Performed By: #### C LOULOU #### [facility] [address] [place] [address] CHEST WO W CONon 01-29-20 CT CHEST WO W CON EXAMINATION: CT CHES T WO W CON, 01/28/2022 8:39 AM EDT HISTORY: [...] by: MIKEY CALDWELL Date: 2022-01-28 17:14 Normal [facility] CBC Auto Differentialon 12-27 Basophils (Bld) [#/Vol] 0.02 10*3/uL [facility] Basophils/100 WBC (Bld) 0.5 % [facility] Eosinophils (Bld) [#/Vol] 0.18 10*3/uL [facility] Eosinophils/100 WBC (Bld) 4.4 % [facility] Erythrocyte distribution width (RBC) [Entitic vol] 14.7 % 11.6 - 14.8 % [facility] Hematocrit (Bld) [Volume fraction] 35.0 % Low 41 - 53 % [facility] Hemoglobin (Bld) [Mass/Vol] 12.1 g/dL Low 13.5 - 17.5 g/dL [facility] Immature granulocytes (Bld) [#/Vol] 0.01 10*3/uL [facility] Immature granulocytes/100 WBC (Bld) 0.20 % [facility] Comment on above: The IG parameter is the percentage of metamyelocytes, myelocytes and promyelocytes. An immature granulocyte count (IG) of 1% or more suggests the possibility of infection, an IG count of 3% is very likely related to an infection. Interpretation and review of laboratory results Abnormal [facility] Lymphocytes (Bld) [#/Vol] 0.67 10*3/uL Low [facility] Lymphocytes/100 WBC (Bld) 16.4 % [facility] MCH (RBC) [Entitic mass] 32.5 pg 26 - 34 pg [facility] MCHC (RBC) [Mass/Vol] 34.6 g/dL 31 - 37 g/dL [facility] MCV (RBC) [Entitic vol] 94.1 fL 80 - 100 fL [facility] Monocytes (Bld) [#/Vol] 0.61 10*3/uL [facility] Monocytes/100 WBC (Bld) 15.0 % [facility] Neutrophils (Bld) [#/Vol] 2.59 10*3/uL [facility] Neutrophils/100 WBC (Bld) 63.5 % [facility] Nucleated RBC (Bld) [#/Vol] 0.00 10*3/uL [facility] Nucleated RBC/100 WBC (Bld) [Ratio] 0.0 % [facility] Platelet mean volume (Bld) [Entitic vol] 10.4 fL 9.4 - 12.4 fL [facility] Platelets (Bld) [#/Vol] 119 10*3/uL Low [facility] RBC (Bld) [#/Vol] 3.72 10*6/uL Low [facility] ealth WBC (Bld) [#/Vol] 4.08 10*3/uL Low [facility] Basic metabolic 2000 panelon 01-20-2022 Anion gap [Moles/Vol] 13 mmol/L 10 - 2 0 mmol/L [facility] Calcium [Mass/Vol] 9.2 mg/dL 8.4 - 10. 2 mg/dL [facility] Chloride [Moles/Vol] 107 mmol/L 98 - 10 8 mmol/L [facility] Creatinine [Mass/Vol] 0.93 mg/dL 0.80 - 1.30 mg/dL [facility] GFR/1.73 sq M.predicted CKD-EPI (S/P/Bld) [Vol rate/Area] 76 - PINF [facility] Glucose [Mass/Vol] 89 mg/dL 65 - 99 mg/dL [facility] HCO3 [Moles/Vol] 25 mmol/L 21 - 32 mmol/L [facility] Interpretation and review of laboratory results Normal [facility] Potassium [Moles/Vol] 4.3 mmol/L 3.5 - 5.1 mmol/L [facility] Sodium [Moles/Vol] 141 mmol/L 135 - 145 mmol/L [facility] Urea nitrogen [Mass/Vol] 12 mg/dL 8 - 25 mg/dL [facility] Urea nitrogen/Creatinine [Mass ratio] 12.9 mg/mg 10 - 20 [facility] The eGFR should be used for monitoring renal function only and not for medication dosing. [facility] CBC Auto Differentialon 12-27 Basophils (Bld) [#/Vol] 0.02 10*3/uL [facility] Basophils/100 WBC (Bld) 0.4 % [facility] Eosinophils (Bld) [#/Vol] 0.18 10*3/uL [facility] Eosinophils/100 WBC (Bld) 3.8 % [facility] Erythrocyte distribution width (RBC) [Entitic vol] 15.0 % High 11.6 - 14.8 % [facility] Hematocrit (Bld) [Volume fraction] 41.6 % 41 - 53 % [facility] Hemoglobin (Bld) [Mass/Vol] 13.7 g/dL 13.5 - 17.5 g/dL [facility] Immature granulocytes (Bld) [#/Vol] 0.02 10*3/uL [facility] Immature granulocytes/100 WBC (Bld) 0.40 % [facility] Comment on above: The IG parameter is the percentage of metamyelocytes, myelocytes and promyelocytes. An immature granulocyte count (IG) of 1% or more suggests the possibility of infection, an IG count of 3% is very likely related to an infection. Interpretation and review of laboratory results Abnormal [facility] Lymphocytes (Bld) [#/Vol] 0.65 10*3/uL Low [facility] Lymphocytes/100 WBC (Bld) 13.7 % [facility] MCH (RBC) [Entitic mass] 31.5 pg 26 - 34 pg [facility] MCHC (RBC) [Mass/Vol] 32.9 g/dL 31 - 37 g/dL [facility] Comment on above: Cold Agglutinin pres ent MCV (RBC) [Entitic vol] 95.6 fL 80 - 100 fL [facility] Monocytes (Bld) [#/Vol] 0.57 10*3/uL [facility] Monocytes/100 WBC (Bld) 12.0 % [facility] Neutrophils (Bld) [#/Vol] 3.32 10*3/uL [facility] Neutrophils/100 WBC (Bld) 69.7 % [facility] Nucleated RBC (Bld) [#/Vol] 0.00 10*3/uL [facility] Nucleated RBC/100 WBC (Bld) [Ratio] 0.0 % [facility] Platelet mean volume (Bld) [Entitic vol] 10.9 fL 9.4 - 12.4 fL [facility] Platelets (Bld) [#/Vol] 132 10*3/uL Low [facility] RBC (Bld) [#/Vol] 4.35 10*6/uL Low [facility] Comment on above: Peripheral smear rev iewed manually WBC (Bld) [#/Vol] 4.76 10*3/uL [facility] Basic metabolic 2000 panelon 01-19-2022 Anion gap [Moles/Vol] 15 mmol/L 10 - 2 0 mmol/L [facility] Calcium [Mass/Vol] 8.4 mg/dL 8.4 - 10. 2 mg/dL [facility] Chloride [Moles/Vol] 108 mmol/L 98 - 10 8 mmol/L [facility] Creatinine [Mass/Vol] 1.08 mg/dL 0.80 - 1.30 mg/dL [facility] GFR/1.73 sq M.predicted CKD-EPI (S/P/Bld) [Vol rate/Area] 63 - PINF [facility] Glucose [Mass/Vol] 90 mg/dL 65 - 99 mg/dL [facility] HCO3 [Moles/Vol] 22 mmol/L 21 - 32 mmol/L [facility] Interpretation and review of laboratory results Normal [facility] Potassium [Moles/Vol] 4.1 mmol/L 3.5 - 5.1 mmol/L [facility] Sodium [Moles/Vol] 141 mmol/L 135 - 145 mmol/L [facility] Urea nitrogen [Mass/Vol] 13 mg/dL 8 - 25 mg/dL [facility] Urea nitrogen/Creatinine [Mass ratio] 12.0 mg/mg 10 - 20 [facility] The eGFR should be used for monitoring renal function only and not for medication dosing. [facility] CBC Auto Differentialon 12-27 Basophils (Bld) [#/Vol] 0.02 10*3/uL [facility] Basophils/100 WBC (Bld) 0.4 % [facility] Eosinophils (Bld) [#/Vol] 0.11 10*3/uL [facility] Eosinophils/100 WBC (Bld) 2.1 % [facility] Erythrocyte distribution width (RBC) [Entitic vol] 15.1 % High 11.6 - 14.8 % [facility] Hematocrit (Bld) [Volume fraction] 36.8 % Low 41 - 53 % [facility] Hemoglobin (Bld) [Mass/Vol] 12.4 g/dL Low 13.5 - 17.5 g/dL [facility] Immature granulocytes (Bld) [#/Vol] 0.01 10*3/uL [facility] Immature granulocytes/100 WBC (Bld) 0.20 % [facility] Comment on above: The IG parameter is the percentage of metamyelocytes, myelocytes and promyelocytes. An immature granulocyte count (IG) of 1% or more suggests the possibility of infection, an IG count of 3% is very likely related to an infection. Interpretation and review of laboratory results Abnormal [facility] Lymphocytes (Bld) [#/Vol] 0.79 10*3/uL Low [facility] Lymphocytes/100 WBC (Bld) 14.8 % [facility] MCH (RBC) [Entitic mass] 31.4 pg 26 - 34 pg [facility] MCHC (RBC) [Mass/Vol] 33.7 g/dL 31 - 37 g/dL [facility] MCV (RBC) [Entitic vol] 93.2 fL 80 - 100 fL [facility] Monocytes (Bld) [#/Vol] 0.66 10*3/uL [facility] Monocytes/100 WBC (Bld) 12.4 % [facility] Neutrophils (Bld) [#/Vol] 3.75 10*3/uL [facility] Neutrophils/100 WBC (Bld) 70.1 % [facility] Nucleated RBC (Bld) [#/Vol] 0.00 10*3/uL [facility] Nucleated RBC/100 WBC (Bld) [Ratio] 0.0 % [facility] Platelet mean volume (Bld) [Entitic vol] 10.7 fL 9.4 - 12.4 fL [facility] Platelets (Bld) [#/Vol] 115 10*3/uL Low [facility] RBC (Bld) [#/Vol] 3.95 10*6/uL Low [facility] WBC (Bld) [#/Vol] 5.34 10*3/uL [facility] CT Angiogram Abdominal Aorta With Lower [...] findings as described above. Workstation ID: [id number] [employer] EXAMINATION: CT ANGIOGRAM ABDOMINAL AORTA WITH LOWER [...] AORTA/BRANCH VESSELS: Moderate aortic calcification without aneurysm. Nqzq-xt-khvoerij atherosclerosis involving the iliac vessels without aneurysm or significant stenosis. LLE: The left common femoral to tibioperoneal trunk bypass graft is patent. 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 Again seen is [...] Incompletely evaluated due to beam hardening artifact. [facility] Matilda Xavier MD - 01/19/2022 EXAMINATION: CT ANGIOGRAM ABDOMINAL [...] AORTA/BRANCH VESSELS: Moderate aortic calcification without aneurysm. Qimq-nt-yngnhjke atherosclerosis involving the iliac vessels without aneurysm or significant stenosis. LLE: The left common femoral to tibioperoneal trunk bypass graft is patent. 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 Again seen is [...] described above. Workstation ID: [id number] [facility] Radiology Study observation (narrative) [facility] CT Angiogram Abdominal Aorta With Lower ExtremityOrdered By: Matilda Cheng on 01-19-2022 [facility] Work Phone: CT Chest Without [...] 2017. Laura Polo et al. January 2017. [employer] Workstation ID: [id number] [facility] RIS EXAMINATION: CT CHEST WITHOUT CONTRAST - 01/19/2022 [...] noted with dense calcifications seen throughout the eyak coronary arteries along with coronary arterial stents. [...] hepatic parenchyma, compatible with mild fatty infiltration. [facility], Rajiv Tamez MD - 01/19/2022 EXAMINATION: CT CHEST WITHOUT [...] noted with dense calcifications seen throughout the eyak coronary arteries along with coronary arterial stents. [...] al. January 2017. [employer] Workstation ID: [id number] [facility] Radiology Study observation (narrative) [facility] CT Chest Without ContrastOrd ered By: Rajiv Oscar on 01-19-2022 [facility] Work Phone: ECG 12 Leadon 01-19-2022 Atrial Rate 76 BPM [facility] P [place] -12 degrees [facility] P-R Interval 172 ms [facility] Q-T Interval 410 ms [facility] QRS Duration 98 ms [facility] QTC Calculation (Bezet) 461 ms [facility] R [place] 39 degrees [facility] T [place] 22 degrees [facility] Ventricular Rate 76 BPM [facility] Sinus rhythm with occasional Premature ventricular complexes Otherwise normal ECG Confirmed by Clark Donovan M.D. ([id number]) on 01/19/2022 10:38:16 AM MUSE [facility] EKGon 01-19-2022 Ordered by an unspecified provider. [facility] Ordered by an unspecified provider. [facility] Basic metabolic 2000 panelon 01-18-2022 Anion gap [Moles/Vol] 13 mmol/L 10 - 2 0 mmol/L [facility] Calcium [Mass/Vol] 9.2 mg/dL 8.4 - 10. 2 mg/dL [facility] Chloride [Moles/Vol] 103 mmol/L 98 - 10 8 mmol/L [facility] Creatinine [Mass/Vol] 1.10 mg/dL 0.80 - 1.30 mg/dL [facility] GFR/1.73 sq M.predicted CKD-EPI (S/P/Bld) [Vol rate/Area] 62 - PINF [facility] Glucose [Mass/Vol] 107 mg/dL High 65 - 99 mg/dL [facility] HCO3 [Moles/Vol] 26 mmol/L 21 - 32 mmol/L [facility] Potassium [Moles/Vol] 4.2 mmol/L 3.5 - 5.1 mmol/L [facility] Sodium [Moles/Vol] 138 mmol/L 135 - 145 mmol/L [facility] Urea nitrogen [Mass/Vol] 14 mg/dL 8 - 25 mg/dL [facility] Urea nitrogen/Creatinine [Mass ratio] 12.7 mg/mg 10 - 20 [facility] The eGFR should be used for monitoring renal function only and not for medication dosing. [facility] CBC Auto Differentialon 12-27 Basophils (Bld) [#/Vol] 0.02 10*3/uL [facility] Basophils/100 WBC (Bld) 0.3 % [facility] Eosinophils (Bld) [#/Vol] 0.14 10*3/uL [facility] Eosinophils/100 WBC (Bld) 2.1 % [facility] Erythrocyte distribution width (RBC) [Entitic vol] 15.3 % High 11.6 - 14.8 % [facility] Hematocrit (Bld) [Volume fraction] 39.2 % Low 41 - 53 % [facility] Hemoglobin (Bld) [Mass/Vol] 14.0 g/dL 13.5 - 17.5 g/dL [facility] Immature granulocytes (Bld) [#/Vol] 0.02 10*3/uL [facility] Immature granulocytes/100 WBC (Bld) 0.30 % [facility] Comment on above: The IG parameter is the percentage of metamyelocytes, myelocytes and promyelocytes. An immature granulocyte count (IG) of 1% or more suggests the possibility of infection, an IG count of 3% is very likely related to an infection. Interpretation and review of laboratory results Abnormal [facility] Lymphocytes (Bld) [#/Vol] 0.75 10*3/uL Low [facility] Lymphocytes/100 WBC (Bld) 11.1 % [facility] MCH (RBC) [Entitic mass] 33.3 pg 26 - 34 pg [facility] MCHC (RBC) [Mass/Vol] 35.7 g/dL 31 - 37 g/dL [facility] MCV (RBC) [Entitic vol] 93.1 fL 80 - 100 fL [facility] Monocytes (Bld) [#/Vol] 0.78 10*3/uL [facility] Monocytes/100 WBC (Bld) 11.5 % [facility] Neutrophils (Bld) [#/Vol] 5.05 10*3/uL [facility] Neutrophils/100 WBC (Bld) 74.7 % [facility] Nucleated RBC (Bld) [#/Vol] 0.00 10*3/uL [facility] Nucleated RBC/100 WBC (Bld) [Ratio] 0.0 % [facility] Platelet mean volume (Bld) [Entitic vol] 10.4 fL 9.4 - 12.4 fL [facility] Platelets (Bld) [#/Vol] 150 10*3/uL [facility] RBC (Bld) [#/Vol] 4.21 10*6/uL Low [facility] ealt WBC (Bld) [#/Vol] 6.76 10*3/uL [facility] CRP, Inflammationon 01-19-20 CRP [Mass/Vol] 63.5 mg/L High 0 - 10 mg/L [facility] h ECG 12 Leadon 01-18-2022 Mikey Mcguire MD 01/18/2022 11:27 PM ECG 12 Lead Date/Time: 01/18/2022 11:27 PM Performed by: Mikey Mcguire MD Authorized by: Mikey Mcguire MD Interpreted by ED attending physician Rhythm: sinus rhythm BPM: 76 Ectopy: PVCs Conduction: conduction normal ST Segments: ST segments normal T Waves: T waves normal Clinical impression: non-specific ECG [facility] ESR Westergren method (Bld) [Velocity]on 01-18-2022 ESR (Bld) [Velocity] 18 mm/h [facility] Interpretation and review of laboratory results Normal [facility] Friedman Topon 01-18-2022 Extra Tube Hold for add-ons. [facility] Comment on above: Auto resulted. [facility] No Panel Informationon 01-18 Extra Tube Hold for add-ons. [facility] Comment on above: Auto resulted. [facility] Interpretation and review of laboratory results Abnormal [facility] POC Venous Blood Gases with Full PanelOrdered By: Elana Chavez on 01-18-2022 Base excess Calc (BldV) [Moles/Vol] 0.2 mmol/L -2 - 2 [facility] Calcium.ionized [Mass/Vol] 4.7 mg/dL 4.5 - 5.3 mg/dL [facility] Chloride [Moles/Vol] 104 mmol/L 98 - 10 8 mmol/L [facility] CO2 (BldV) [Partial pressure] 41.3 mm[Hg] [facility] CO2 [Moles/Vol] 25 mmol/L 21 - 32 mmol/L [facility] Creatinine [Mass/Vol] 1.35 mg/dL High 0.80 - 1.30 mg/dL [facility] GFR 48 Low - PINF [facility] Glucose [Mass/Vol] 98 mg/dL 65 - 99 mg/dL [facility] Hematocrit (Bld) [Volume fraction] 42 % 41 - 53 % [facility] Hemoglobin (Bld) [Mass/Vol] 14.4 g/dL 13.5 - 17.5 g/dL [facility] Interpretation and review of laboratory results Abnormal [facility] Lactate (Bld) [Mass/Vol] 1.0 mmol/L 0.6 - 2 mmol/L [facility] Oxygen (BldV) [Partial pressure] 51 mm[Hg] High [facility] Oxygen saturation in Venous blood 85.2 % High 40 - 70 % [facility] pH (BldV) 7.40 [pH] 7.32 - 7.42 [facility] Potassium [Moles/Vol] 4.0 mmol/L 3.5 - 5.1 mmol/L [facility] Sodium [Moles/Vol] 141 mmol/L 135 - 145 mmol/L [facility] Urea nitrogen [Mass/Vol] 14 mg/dL 8 - 25 mg/dL [facility] The eGFR should be used for monitoring renal function only and not for medication dosing. [facility] [place] Topon 01-18-2022 [facility] XR Ankle Left 3+ Views (Shekhar dard)on 01-18-2022 FINDINGS/ Distal fibula ORIF. 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 No acute periosteal reaction. Severe tibiotalar osteoarthritis. Diffuse soft tissue edema about the remainder of the foot. No soft tissue gas. Vascular atherosclerotic soft tissue calcifications. Workstation ID: [id number] [employer] EXAMINATION: XR ANKLE LEFT 3+ VIEWS (STANDARD) 01/18/2022 9:01 pm HISTORY: ORDERING SYSTEM PROVIDED HISTORY: left ankle/stump cellulitis, r/o osteo, TECHNOLOGIST PROVIDED HISTORY: Illness/Other Reason for exam: left ankle/stump cellulitis, r/o osteo Cancer History: unk Surgery, RadiationHistory: YES Encounter Type: Unknown Additional signs and symptoms: unk ORDERING SYSTEM PROVIDED DIAGNOSIS CODES: COMPARISON: 01/18/2022 [facility] Mikey Mares MD - 01/18/2022 EXAMINATION: XR ANKLE LEFT [...] atherosclerotic soft tissue calcifications. Workstation ID: [id number] [facility] Radiology Study observation (narrative) [facility] XR Tibia Fibula Left 2 Views on 01-18-2022 FINDINGS/ Distal fibular ORIF without evidence of hardware complication. No acute fracture identified. Tricompartmental osteophytes at the knee. No periosteal reaction. Moderate to severe tibiotalar osteoarthritis. Probable vascular stent in the popliteal fossa with several surrounding surgical clips. No soft tissue gas or obvious large fluid collection. Workstation ID: [id number] [facility] EXAMINATION: XR TIBIA FIBULA LEFT 2 VIEWS 01/18/2022 8:24 pm HISTORY: ORDERING SYSTEM PROVIDED HISTORY: infx r/o gas, TECHNOLOGIST PROVIDED HISTORY: Illness/Other Reason for exam: infx r/o gas Cancer History: unk Surgery, RadiationHistory: YES Encounter Type: Unknown Additional signs and symptoms: ORDERING SYSTEM PROVIDED DIAGNOSIS CODES: COMPARISON: 10/21/2019 [facility] Mikey Huerta MD - 01/18/2022 EXAMINATION: XR TIBIA FIBULA [...] fluid collection. Workstation ID: [id number] [facility] Radiology Study observation (narrative) [facility] XR Tibia Fibula Left 2 Views Ordered By: Mikey Huerta on 01-18-2022 [facility] Work Phone: CBCon 07-16-2021 ABSOLUTE BAS 0.0 10*3/uL Normal 0.0-0.2 [facility] Comment on above: Result Comment: Test ing performed at [place] [address] Performed By: #### A CBC #### [place] [address] ABSOLUTE EOS 0.00 10*3/uL Normal 0.0-0.7 [facility] Comment on above: Performed By: #### A CBC #### [place] [address] ABSOLUTE NEUTROPHIL COUNT 8.7 10*3/uL High 1.4-6.5 [facility] Comment on above: Performed By: #### A CBC #### [place] [address] Basophils/100 WBC (Bld) 0.0 % Normal 0.0-2.0 [facility] Comment on above: Performed By: #### A CBC #### [place] [address] DTYPE AUTO DIFF Normal [facility] Comment on above: Performed By: #### A CBC #### [place] [address] Eosinophils/100 WBC (Bld) 0.0 % Normal 0.0-11.0 [facility] Comment on above: Performed By: #### A CBC #### Testing performed at [place] [id number] Lymphocytes (Bld) [#/Vol] 0.40 10*3/uL Low 1.2-3.4 [facility] Comment on above: Performed By: #### A CBC #### Testing performed at [place] [address] Lymphocytes/100 WBC (Bld) 4.2 % Low 20.0-55.0 [facility] Comment on above: Performed By: #### A CBC #### Testing performed at [address] [address] Monocytes (Bld) [#/Vol] 0.9 10*3/uL High 0.0-0.7 [facility] Comment on above: Performed By: #### A CBC #### Testing performed at [place] [address] Monocytes/100 WBC (Bld) 8.9 % Normal 0.0-10.0 [facility] Comment on above: Performed By: #### A CBC #### Testing performed at [place] [address] Neutrophils/100 WBC (Bld) 86.9 % High 37.0-75.0 [facility] Comment on above: Performed By: #### A CBC #### Testing performed at [place] [address] Erythrocyte distribution width (RBC) [Ratio] 15.4 % High 11.5-14.5 [facility] Comment on above: Performed By: #### A CBC #### Testing performed at [address] [address] Hematocrit (Bld) [Volume fraction] 34.2 % Low 42.0-52.0 [facility] Comment on above: Performed By: #### A CBC #### Testing performed at [address] [address] Hemoglobin (Bld) [Mass/Vol] 11.7 g/dL Low 14.0-18.0 [facility] Comment on above: Performed By: #### A CBC #### Testing performed at [address] [address] MCH (RBC) [Entitic mass] 31.4 pg Normal 26.0-35.0 [facility] Comment on above: Performed By: #### A CBC #### Testing performed at [place] [id number] MCHC (RBC) [Mass/Vol] 34.3 g/dL Normal 27.0-37.0 [facility] Comment on above: Performed By: #### A CBC #### [place] [address] MCV (RBC) [Entitic vol] 91.6 fL Normal 80.0-100.0 [facility] Comment on above: Performed By: #### A CBC #### [place] [address] Platelet mean volume (Bld) [Entitic vol] 8.2 fL Normal 7.4-11.0 [facility] Comment on above: Result Comment: Test ing performed at [place] [address] Performed By: #### A CBC #### [place] [address] Platelets (Bld) [#/Vol] 127 10*3/uL Low 130.0-400.0 [facility] Comment on above: Performed By: #### A CBC #### [place] [address] RBC (Bld) [#/Vol] 3.73 10*6/uL Low 4.0-6.1 [facility] Comment on above: Performed By: #### A CBC #### [place] [address] WBC (Bld) [#/Vol] 10.0 10*3/uL Normal 3.6-11.0 [facility] Comment on above: Performed By: #### A CBC #### [place] [address] NOVEL CORONAVIRUSon -18-20 21 NARRATIVE This test was performed using isothermal OREN and has been approved as Emergency Use Authorization (EUA) for the qualitative detection [id number] nucleic acid. Normal [facility] Comment on above: Result Comment: Test ing performed at [place] [address] Performed By: #### C OVID #### Testing performed at [place] [address] SARS-CoV-2 (COVID-19) RNA OREN+probe Ql (Unsp spec) Not detected Normal NOT DETECTED [facility] Comment on above: Result Comment: Nega [...] #### C OVID #### [place] [address] TYPE AND SCREEN CROSSMATCH C ONVERTIBLEon 07-15-2021 TYPE AND SCREEN CROSSMATCH CONVERTIBLE WORKUP EXPIRES 07/18/2021,2359 ABO/RH(D) O POSITIVE ANTIBODY SCREEN NEGATIVE ARM BAND NUMBER [id number] Testing performed at [place] [address] Normal [facility] Comment on above: Performed By: #### T SCC #### Testing performed at [place] [id number] Basic Metabolic Panelon 09-3 0-2020 Calcium [Mass/Vol] 9.6 mg/dL Normal 8.5-10.6 [facility] Chloride [Moles/Vol] 105 mmol/L Normal 98-107 Moun [facility] CO2 [Moles/Vol] 29 mmol/L Normal 21-32 [facility] Creatinine [Mass/Vol] 0.99 mg/dL Normal 0.70-1.30 [facility] Glucose [Mass/Vol] 92 mg/dL Normal 70-99 [facility] Potassium [Moles/Vol] 4.6 mmol/L Normal 3.5-5.1 [facility] Sodium [Moles/Vol] 142 mmol/L Normal 136-145 [facility] Urea nitrogen (BldV) [Mass/Vol] 15 mg/dL Normal 7.0-18.0 [facility] Urea nitrogen/Creatinine [Mass ratio] 15 mg/mg Normal [facility] CBC with Differentialon -3 0-2020 Basophils (Bld) [#/Vol] 0.0 thou/mcL Normal 0.0-0.2 [facility] Basophils/100 WBC (Bld) 0.7 % Normal 0-3 [facility] Differential cell count method Nom (Bld) AUTOMATED DIFFERENTIAL Normal [facility] Eosinophils (Bld) [#/Vol] 0.0 thou/mcL Normal 0.0-0.4 [facility] Eosinophils/100 WBC (Bld) 1.2 % Normal 0-7 [facility] Lymphocytes (Bld) [#/Vol] 0.6 thou/mcL Low 0.7-4.5 [facility] Lymphocytes/100 WBC (Bld) 18.3 % Normal 14-46 [facility] Monocytes (Bld) [#/Vol] 0.5 thou/mcL Normal 0.1-1.0 [facility] Monocytes/100 WBC (Bld) 13.2 % High 4-13 [facility] Neutrophils (Bld) [#/Vol] 2.3 thou/mcL Normal 1.5-7.8 [facility] Neutrophils/100 WBC (Bld) 66.6 % Normal 40-74 [facility] Erythrocyte distribution width (RBC) [Entitic vol] 16.1 % High 11.7-15.0 [facility] Hematocrit (Bld) [Volume fraction] 38.2 % Normal 34.0-50.0 [facility] Hemoglobin (Bld) [Mass/Vol] 13.6 g/dL Normal 11.5-17.0 [facility] MCH (RBC) [Entitic mass] 33.2 Picograms Normal 27.0-34.0 [facility] MCHC (RBC) [Mass/Vol] 35.6 g/dL Normal 32.0-36.0 [facility] MCV (RBC) [Entitic vol] 93.2 fL Normal 80-98 [facility] Platelet mean volume (Bld) [Entitic vol] 8.6 fL Normal 7.5-11.2 [facility] Platelets (Bld) [#/Vol] 179 thou/mcL Normal 140-415 [facility] Comment on above: Result Comment: Annetta shirley by repeat analysis RBC (Bld) [#/Vol] 4.10 x(10)6/mcL Normal 3.80-5.60 [facility] WBC (Bld) [#/Vol] 3.5 thou/mcL Low 4.0-10.5 [facility] Comment on above: Result Comment: ANNETTA SHIRLEY BY SLIDE REVIEW Partial Thromboplastin Time (aPTT)on 05-27-2020 aPTT Coag (PPP) [Time] 27.4 Sec Normal 23.2-34.6 [facility] Prothrombin Timeon 0 INR Coag (Bld) [Relative time] 1.1 {INR} Normal [facility] Comment on above: Result Comment: MAGALYS MUNOZ THE INDUCTION PHASE OF ORAL ANTICOAGULATION, THE INR MAY NOT REFLECT THE ANTICOAGULANT STATUS OF THE PATIENT. THERAPEUTIC RANGES FOR INR'S ARE: MOST CLINICAL SITUATIONS: INR 2.0-3.0 MECHANICAL PROSTHETIC VALVES: INR 2.5-3.5 CRITICAL: INR 5.0 PT Coag (PPP) [Time] 14.5 Sec Normal 11.9-14.6 [facility] US DOPPLER CAROTIDon 020 Non-Invasive Vascula r ____ Patient: SHERRY Bazan Med Rec#: [id number] (Age): 1940(80y) Study Date: 03/16/2020 Room#: Type: Outpatient Sex: M ____ Reading: Radha Su DO, RVT, RPVI, FSVM Referring: Mohsen Sarabia MD, NATANAEL Binder Technician: Wanger Giron RVT, RDPR Procedure Info: [id number]... Study Quality: ____ Diagnosis: I65.23 Occlusion and [...] 03/16/2020 13:09:31 by: Radha Su DO, RVT, NATANAEL, FSYVES [facility] Interface, Rad In Heartlab Xper Echopacs - 03/16/2020 1:20 PM EDT Non-Invasive Vascular ____ Patient: SHERRY Bazan [facility] Rec#: [id number] (Age): 1940(80y) Study Date: 03/16/2020 Room#: Type: Outpatient Sex: M ____ Reading: Radha Su DO, RVT, NATANAEL, FSVM Referring: Mohsen Sarabia MD, NATANAEL Binder Technician: Wagner Giron RVT, RDMS Procedure Info: [id number]... 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 Normal [facility] CBCon 11-29-2019 Erythrocyte distribution width (RBC) [Entitic vol] 14.3 % Normal 11.7-15.0 [facility] Hematocrit (Bld) [Volume fraction] 33.8 % Low 34.0-50.0 [facility] Hemoglobin (Bld) [Mass/Vol] 11.8 g/dL Normal 11.5-17.0 [facility] MCH (RBC) [Entitic mass] 31.4 Picograms Normal 27.0-34.0 [facility] MCHC (RBC) [Mass/Vol] 35.0 g/dL Normal 32.0-36.0 [facility] MCV (RBC) [Entitic vol] 89.8 fL Normal 80-98 [facility] Platelet mean volume (Bld) [Entitic vol] 8.7 fL Normal 7.5-11.2 [facility] Platelets (Bld) [#/Vol] 152 thou/mcL Normal 140-415 [facility] RBC (Bld) [#/Vol] 3.77 x(10)6/mcL Low 3.80-5.60 [facility] WBC (Bld) [#/Vol] 10.2 thou/mcL Normal 4.0-10.5 Moun [facility] OR Nursingon 11-29-2019 OR Nursing CO NA OR Nursing Record Summary Primary Physician: Oscra DIAZ , Ramana Ontiveros Finalized Date/Time: 11/29/19 11:47:30 Pt. Name: TRISTIN POWELL D.O.B./Sex: 1940 Male Med Rec #: [id number] Physician: Ramana Cason MD Financial #: [id number] Pt. Type: I Room/Bed: Admit/Disch: 11/28/19 05:01:00 - Institution: [place] NA OR Case Times Entry 1 Patient Times Patient In Room 11/28/19 06:30:00 Patient Out Room 11/28/19 09:18:00 Surgical Times Start Time 11/28/19 07:05:00 Stop Time 11/28/19 09:05:00 Last Modified By: Mary Kate Baptiste RN 11/28/19 09:16:34 CO NA OR Case Attendees Entry 1 Entry 2 Entry 3 Case Attendee Oscar DIAZ , Ramana BROWER , Nabor Jenkins MD Role Performed Primary Surgeon Physician Upsetter Anesthesiologist Time In 11/28/19 06:30:00 11/28/19 06:55:00 11/28/19 06:30:00 Time Out 11/28/19 08:05:00 11/28/19 09:05:00 11/28/19 09:18:00 Procedure Fusion Cervical Post Fusion Cervical Post Fusion Cervical Post with with with Decompression(Cervical ) Decompression(Cervical ) Decompression(Cervical ) Attendee Comment Relief Reason Last Modified By: Emile RN , Mary Kate Baptiste RN , Mary Kate Danielle RN 11/28/19 09:16:36 11/28/19 09:16:36 11/28/19 09:16:36 Entry 4 Entry 5 Entry 6 Case Attendee Emile LIGHT , Mary Kate Quintana RN , Marichuy Montesinos Role Performed business intelligence reporting analyst business intelligence reporting analyst First Scrub Time In 11/28/19 06:30:00 11/28/19 06:30:00 11/28/19 06:30:00 Time Out 11/28/19 09:18:00 11/28/19 09:18:00 11/28/19 08:40:00 Procedure Fusion Cervical Post Fusion Cervical Post Fusion Cervical Post with with with Decompression(Cervical ) Decompression(Cervical ) Decompression(Cervical ) Attendee Comment orientation Relief Reason Last Modified By: Mack RN , Karen BaptisteMary Kate champion RN, RN, Veneva M N 11/29/19 11:45:51 11/28/19 09:16:36 11/28/19 09:16:36 Entry [...] jagruti vest Relief Reason Last Modified By: Mary Kate Baptiste RN, RN, Veneva M Glover RN, Veneva M 11/28/19 09:16:36 11/28/19 09:16:36 11/28/19 09:16:36 Entry 10 Entry 11 Entry 12 Case Attendee Case, Attendee Other Yang Zuniga MD , Ramana Ontiveros Role Performed Dray Truck Driver Java Architect Surgeon Time In 11/28/19 07:02:00 11/28/19 07:20:00 [...] 11/28/19 09:16:36 CO NA OR General Case Edge Inker Uppers 1 OR CO NA 01 ASA Class [...] SILICONE Present on Arrival? No NATALIE 15FR [id number] Location POSTERIOR NECK Inserted By Ben Saha [...] Ben Saha TUCKED AT SIDE WITH Lilian Heurta RN , Tanner Matos BEDSHEET AND TAPE; [...] UNITS 1 VIAL POWDER VANCOCIN POWDER TOPICAL 86832-239-01 Medication Dosage 1 sheet 5000 UNITS 1 g Route of TOPICAL TOPICAL TOPICAL Administration Meds Administered By Oscar DIAZ , Ramana Cason MD , Ramana BROWER , Ben Huerta Medication Comment Last Modified By: Mack RN , Karen Giron RN , Mary Kate Strickland RN N 11/29/19 11:46:31 N 11/29/19 11:46:31 11/28/19 07:19:27 Entry 4 Times Med Administered Medication CO NAROPIN 0.5% 5MG/1ML 30ML ROPIVACAINE Medication Dosage 30 ML Route of Local Administration Meds Administered By Ramana Cason MD Medication Comment Last Modified By: Mary Kate [...] by Surgeon Implant Identification Description Lineum plugs [id number] Lineum screw 3.5x14mm BETHEL LINEUM PRE-CURVED Type1 Occipital [id number] CERVICAL [id number] 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 [employer] Catalog Number [id number] Lot Number na na na Serial Number na na na Implant Site cervical, C3-6 cervical, C3-6 cervical, C3-6 Quantity 8 8 2 Expiration Date No Expiration Date Yes Yes Yes Unique Device Indent (AVE) Human Readable Machine Readable Manufactured Date Tissue Tissue Implanted Yes Yes Yes Material Used to na na na Prepare/Process Tissue Processed By: Marichuy Cohen Danielle J Roffey, Danielle J Last Modified [...] count correct Count RN Performing Count Lilian LIGHT , Tanner Quintana RN , Tanner Matos Count Performed with Marichuy Cohen Danielle J [...] Regulation Entry 1 Device CO UNIT YUKI ULLOA Unit ID 6 Site LOWER BODY Setting PER ANESTHESIA Warm blankets Last Modified By: Mary Kate Baptiste RN 11/28/19 07:22:23 CO NA OR Final Count Entry 1 Sponges Correct Yes Sharps/Miscellaneous Yes Correct Instruments Correct n/a Count Performed with Marichuy Cohen RN Performing Count Tanner Quintana RN Surgeon Notified of Yes Count X-ray Taken [...] 09:16 Karen Giron RN 11/29/19 11:47 Normal [facility] Patient Summaryon 11-29-2019 Patient Summary PATIENT DISCHARGE INSTRUCTIONS If you are having an emergency and are not able to reach your physician, CALL 911 or go to the nearest emergency room and take this document with you. [facility] 11/29/19 11:09 [address] [place] [address] PATIENT INFORMATION Name: TRISTIN POWELL Address: [address] [address] Age: 79 Years Phone: [phone] : 1940 12:00 MRN: [id number] Sex: Male Race: White Ethnicity: Not Hispan/Lat Admitted From: Clinic or [facility] Medical Service: Orthopedic Surgery Nurse Unit/Bed: (ELSY) 2NWILLIAMS 0208-01 Admit Date: 11/28/2019 05:01 PCP: Flash Lovelace MD PHYSICIANS INVOLVED WITH CARE ---- Attending Physicians: Ramana Cason MD - Orthopaedic Surg Admitting Physician: Ramana Cason MD - Orthopaedic Surg Primary Care Physician:Flash Lovelace MD,[facility], - Consults: IWONA Wren - Internal Medicine FOLLOW-UP APPOINTMENTS: Provider: Specialty: Address: Date: Ramana Cason MD Orthopaedic Surg [address] [place], [place] [id number] (1) Two Weeks Comment: Call for an Appointment Provider: Specialty: Address: Date: Flash Lovelace MD [facility] [address] [place] [address] (1) Follow-up as needed ALLERGIES: No Known [...] doses are changed, or new medications (including fyqe-clk-wzknhkp products) are added. Ask your doctor if [...] suicide hotline, anytime day or night, at 7-626-853-OFES. Important information about accessing your health information through the [facility] [employer] patient portal If you initiated the self-registration process for [employer] during your stay, please check your personal email for an invitation to enroll in [employer] and complete the steps outlined in the email. If you would prefer to enroll while in the hospital, ask a member of your care team. We would be happy to assist you. If you have already enrolled in [employer], go to [email or web address] to login and access your health information. Thank you for choosing [facility] [employer]. PATIENT EDUCATION Incentive Spirometer An incentive spirometer [...] 12/25/2007 Document Revised: 09/04/2015 Document Reviewed: 03/23/2015 [employer] Interactive Patient Education ?2016 [employer] Venous Thromboembolism, Prevention A venous thromboembolism [...] 08/02/2010 Document Revised: 05/08/2013 Document Reviewed: 12/09/2015 [employer]Me Interactive Patient Education ?2016 [employer] Preventing Constipation After Surgery Constipation is [...] a bowel movement. ???Having hard, dry, or ukpwgh-hhbi-dnhuxv stools. ???Feeling full or bloated. ???Having pain in the lower abdomen. ???Not feeling relief after having a bowel movement. HOME CARE INSTRUCTIONS Diet ???Eat foods that have a lot of fiber. These include fruits, vegetables, whole grains, and beans. Limit foods high in fat and processed sugars. These include kyrgyz fries, hamburgers, cookies, and candy. ???Take a [...] softener, laxative, or fiber supplement. ???Only take yutt-tbp-jjbwopg or prescription medicines as directed by your [...] 12/09/2013 Document Revised: 09/04/2015 Document Reviewed: 12/09/2013 [employer] Interactive Patient Education ?2016 [employer]. Pain Medicine Instructions HOW CAN PAIN MEDICINE [...] liver damage. Acetaminophen is found in many eqad-mzk-roysawo (OTC) and prescription medicines. If you are [...] Document Reviewed: 06/18/2015 Elsevier Interactive Patient Education ?2016 [employer]. PATIENT DISCHARGE INSTRUCTION Signature Page for: TRISTIN POWELL Date/Time: 11/29/2019 11:09:09 A Clinician has explained the information on my discharge instructions and has provided me with a copy. My questions have been answered to my satisfaction. Patient Signature Date/Time Responsible Party Date/Time Relationship to Patient Clinician Signature Date/Time Normal [facility] Troponin Ion 11-29-2019 Troponin I.cardiac [Mass/Vol] 0.03 ng/mL Normal <0.06 [facility] Magnesium Levelon 11-28-2019 Magnesium [Mass/Vol] 2.3 mg/dL Normal 1.8-2.4 [facility] PACU I Nursingon 11-28-2019 PACU I Nursing CO NA PACU I Nursing Record Summary Primary Physician: Ramana Cason MD Finalized Date/Time: 11/28/19 10:38:07 Pt. Name: TRISTIN POWELL/Sex: 1940 Male Med Rec #: [id number] Physician: Ramana Cason MD Financial #: [id number] Pt. Type: I Room/Bed: / Admit/Disch: 11/28/19 05:01:00 - Institution: [facility] OR Main PACU I Case Times Entry 1 In PACU I 11/28/19 09:19:00 Ready for PACU I 11/28/19 10:12:00 Discharge Discharge from PACU 11/28/19 10:29:00 PACU I Discharge NA I Delay Reason Last Modified By: Richie Huerta RN 11/28/19 10:38:04 CO NA OR Main PACU I Case Attendees Entry 1 Entry 2 Case Attendee Bradley LIGHT , Richie Amin RN , Maxine Role Performed RN RN Last Modified By: Richie Huerta RN, RN, Christopher W 11/28/19 10:03:10 W 11/28/19 10:03:10 Finalized By: Richie Huerta RN Document Signatures Signed By: Richie Huerta RN 11/28/19 10:38 Normal [facility] PreOp Nursingon 11-28-2019 PreOp Nursing CO NA PreOp Nursing Record Summary Primary Physician: Ramana Cason MD Finalized Date/Time: 11/28/19 07:11:59 Pt. Name: TRISTIN POWELL/Sex: 1940 Male Med Rec #: [id number] Physician: Ramana Cason MD Financial #: [id number] Pt. Type: I Room/Bed: / Admit/Disch: 11/28/19 05:01:00 - Institution: [place] NA OR PreOp Case Times Entry 1 PreOp Case Times In Room Time 11/28/19 05:12:00 Out Room Time 11/28/19 06:29:00 Last Modified By: Mary Kate Baptiste RN 11/28/19 07:11:57 CO NA OR PreOp Case Attendees Entry 1 Entry 2 Case Attendee Julien LIGHT , Francy Epstein RN , Izabel Role Performed RN RN Last Modified By: Maggy Velarde RN, Lauren 11/28/19 05:17:12 11/28/19 05:37:49 Finalized By: Mary Kate Baptiste RN Document Signatures Signed By: Mary Kate Baptiste RN 11/28/19 07:11 Normal [facility] Troponin Ion 11-28-2019 Troponin I.cardiac [Mass/Vol] ng/mL Normal <0.06 [facility] Troponin I.cardiac [Mass/Vol] ng/mL Normal <0.06 [facility] Basic Metabolic Panelon 10-26 Calcium [Mass/Vol] 9.6 mg/dL Normal 8.5-10.6 [facility] Chloride [Moles/Vol] 105 mmol/L Normal 98-107 [facility] CO2 [Moles/Vol] 28 mmol/L Normal 21-32 [facility] Creatinine [Mass/Vol] 1.12 mg/dL Normal 0.70-1.30 [facility] Glucose [Mass/Vol] 91 mg/dL Normal 70-99 [facility] Potassium [Moles/Vol] 4.9 mmol/L Normal 3.5-5.1 [facility] Sodium [Moles/Vol] 141 mmol/L Normal 136-145 [facility] Urea nitrogen (BldV) [Mass/Vol] 23 mg/dL High 7.0-18.0 [facility] Urea nitrogen/Creatinine [Mass ratio] 21 mg/mg Normal [facility] CBC with Differentialon 10-26 Basophils (Bld) [#/Vol] 0.0 thou/mcL Normal 0.0-0.2 [facility] Basophils/100 WBC (Bld) 0.9 % Normal 0-3 [facility] Differential cell count method Nom (Bld) AUTOMATED DIFFERENTIAL Normal [facility] Eosinophils (Bld) [#/Vol] 0.1 thou/mcL Normal 0.0-0.4 [facility] Eosinophils/100 WBC (Bld) 2.1 % Normal 0-7 [facility] Lymphocytes (Bld) [#/Vol] 0.8 thou/mcL Normal 0.7-4.5 [facility] Lymphocytes/100 WBC (Bld) 19.7 % Normal 14-46 [facility] Monocytes (Bld) [#/Vol] 0.7 thou/mcL Normal 0.1-1.0 [facility] Monocytes/100 WBC (Bld) 16.0 % High 4-13 [facility] Neutrophils (Bld) [#/Vol] 2.5 thou/mcL Normal 1.5-7.8 [facility] Neutrophils/100 WBC (Bld) 61.3 % Normal 40-74 [facility] Erythrocyte distribution width (RBC) [Entitic vol] 14.2 % Normal 11.7-15.0 [facility] Hematocrit (Bld) [Volume fraction] 39.8 % Normal 34.0-50.0 [facility] Hemoglobin (Bld) [Mass/Vol] 13.8 g/dL Normal 11.5-17.0 [facility] MCH (RBC) [Entitic mass] 31.7 Picograms Normal 27.0-34.0 [facility] MCHC (RBC) [Mass/Vol] 34.6 g/dL Normal 32.0-36.0 Lucy nt [facility] MCV (RBC) [Entitic vol] 91.6 fL Normal 80-98 [facility] Platelet mean volume (Bld) [Entitic vol] 8.2 fL Normal 7.5-11.2 [facility] Platelets (Bld) [#/Vol] 191 thou/mcL Normal 140-415 [facility] RBC (Bld) [#/Vol] 4.34 x(10)6/mcL Normal 3.80-5.60 [facility] WBC (Bld) [#/Vol] 4.1 thou/mcL Normal 4.0-10.5 [facility] Comment on above: Result Comment: ANNETTA SHIRLEY BY SLIDE REVIEW Partial Thromboplastin Time (aPTT)on 11-12-2019 aPTT Coag (PPP) [Time] 28.5 Sec Normal 23.2-34.6 [facility] Prothrombin Timeon 0 INR Coag (Bld) [Relative time] 1.1 {INR} Normal [facility] Comment on above: Result Comment: MAGALYS MUNOZ THE INDUCTION PHASE OF ORAL ANTICOAGULATION, THE INR MAY NOT REFLECT THE ANTICOAGULANT STATUS OF THE PATIENT. THERAPEUTIC RANGES FOR INR'S ARE: MOST CLINICAL SITUATIONS: INR 2.0-3.0 MECHANICAL PROSTHETIC VALVES: INR 2.5-3.5 CRITICAL: INR 5.0 PT Coag (PPP) [Time] 14.5 Sec Normal 11.9-14.6 Moun [facility] CT Angiogram Abdominal Aorta With Lower Extremityon 10-21-2019 Patent left femoral to tibioperoneal trunk bypass graft which bypasses an occluded eyak distal superficial femoral artery. Infrapopliteal peripheral arterial [...] hiatal hernia. Workstation ID: [id number] [facility] EXAMINATION: CTA (Angiogram) OF THE [...] artery:Single renal artery is present. There is yevh-ci-vgntommn, 50-70%, narrowing of the ostium of the [...] femoral artery: There is occlusion of the eyak superficial femoral artery in its distal aspect [...] There also degenerative changes in the spine. [facility], Rad In Fu ji Speechq - 10/21/2019 [...] artery:Single renal artery is present. There is hask-es-ufiwzhyi, 50-70%, narrowing of the ostium of the [...] femoral artery: There is occlusion of the eyak superficial femoral artery in its distal aspect [...] trunk bypass graft which bypasses an occluded eyak distal superficial femoral artery. Infrapopliteal peripheral arterial [...] hiatal hernia. Workstation ID: [id number] [facility] POC Creatinineon 10-21-2019 Creatinine [Mass/Vol] 1.1 mg/dL 0.8 - 1.3 mg/dL [facility] Interpretation and review of laboratory results Normal [facility] Ultrasound ankle / brachial indices extremity completeon 10-09-2019 Non-Invasive Vascula r ____ Patient: SHERRY MENDOZA Hortensia [facility] Rec#: [id number] (Age): 1940(79y) Study Date: 10/09/2019 Room#: Type: Outpatient Sex: M ____ Reading: Nemo Conner MD, PhD, RVT Referring: Mohsen Sarabia MD, RPVI Binder Technician: Andre Madrid RDCS/RVT Procedure Info: [id number] Study Quality: Lower Arterial Doppler: adequate ____ [...] Nemo Conner MD, PhD, RVT [facility] Interface, Rad In Heartlab Xper Echopacs - 10/09/2019 4:01 PM EST Non-Invasive Vascular ____ Patient: SHERRY Bazan [facility] Rec#: [id number] (Age): 1940(79y) Study Date: 10/09/2019 Room#: Type: Outpatient Sex: M ____ Reading: Nemo Conner MD, PhD, RVT Referring: Mohsen Sarabia MD, RPVI Binder Technician: Andre Madrid RDCS/RVT Procedure Info: [id number] Study Quality: Lower Arterial Doppler: adequate ____ [...] Nemo Conner MD, PhD, RVT [facility] Ultrasound duplex arterial l eg lefton 10-09-2019 Non-Invasive Vascula r ____ Patient: SHERRY MENDOZA [facility] Rec#: [id number] (Age): 1940(79y) Study Date: 10/09/2019 Room#: Type: Outpatient Sex: M ____ Reading: Nemo Conner MD, PhD, RVT Referring: ALENA Binder Technician: Andre Madrid RDCS/RVT Procedure Info: [id number] Study Quality: Graft Duplex: adequate ____ Diagnosis: I73.9 Peripheral vascular disease, unspecified Graft Duplex ____ Conclusions Left: Patent femoral to peroneal artery bypass graft with no evidence of hemodynamically significant stenosis. ____ The procedure was explained to the patient. The patient voiced understanding. Measurements Left PSV Name Value Units EIA 151 cm/sec INSPECTOR MOTOR VEHICLES 115 cm/sec Left Graft #1 PSV Name Value Units Inflow Artery 76.8 cm/sec Prox Anastomosis 102 cm/sec Prox Graft 80.7 cm/sec Mid Graft 60.3 cm/sec Dist Graft 69.6 cm/sec Dist Anastomosis 44.1 cm/sec Outflow Artery 72.1 cm/sec History CAD. Hypertension. History Comments:Left transmetatarsal amputation. Electronically signed at 10/09/2019 15:14:54 by: Nemo Connre MD, PhD, T [facility] Interface, Rad In Heartlab er [facility] - 10/09/2019 4:01 PM EST Non-Invasive Vascular ____ Patient: SHERRY TRISTIN Bazan Med Rec#: [id number] (Age): 1940(79y) Study Date: 10/09/2019 Room#: Type: Outpatient Sex: M ____ Reading: Nemo Conner MD, PhD, RVT Referring: ALENA Binder Technician: Andre Madrid RDCS/RVT Procedure Info: [id number] Study Quality: Graft Duplex: adequate ____ Diagnosis: I73.9 Peripheral vascular disease, unspecified Graft Duplex ____ Conclusions Left: Patent femoral to peroneal artery bypass graft with no evidence of hemodynamically significant stenosis. ____ The procedure was explained to the patient. The patient voiced understanding. Measurements Left PSV Name Value Units EIA 151 cm/sec INSPECTOR MOTOR VEHICLES 115 cm/sec Left Graft #1 PSV Name Value Units Inflow Artery 76.8 cm/sec Prox Anastomosis 102 cm/sec Prox Graft 80.7 cm/sec Mid Graft 60.3 cm/sec Dist Graft 69.6 cm/sec Dist Anastomosis 44.1 cm/sec Outflow Artery 72.1 cm/sec History CAD. Hypertension. History Comments:Left transmetatarsal amputation. Electronically signed at 10/09/2019 15:14:54 by: Nemo Conner MD, PhD, RVT [facility] US DOPPLER CAROTIDon 07-22-2 019 Non-Invasive Vascula r ____ Patient: SHERRY Jones Rec#: [id number] (Age): 1940(79y) Study Date: 03/18/2019 Room#: Type: Outpatient Sex: M ____ Reading: Radha Su DO, RVT, NATANAEL, FSVM Referring: NATANAEL Manuel MD Binder Technician: Wagner Giron RVT, RDMS Procedure Info: [id number]... Study Quality: ____ Diagnosis: I65.23 Occlusion and [...] at 03/18/2019 10:28:46 by: Radha Su DO, RVT, RPLUIZA, FSVM [facility], Rad In Heartlab [facility] - 03/18/2019 10:30 AM EDT Non-Invasive Vascular ____ Patient: SHERRY Bazan [facility] Rec#: [id number] (Age): 1940(79y) Study Date: 03/18/2019 Room#: Type: Outpatient Sex: M ____ Reading: Radha Su DO, RVT, RPVI, FSVM Referring: Mohsen Sarabia MD, RPVI Binder Technician: Wagner Giron RVT, RDMS Procedure Info: [id number]... Study Quality: ____ Diagnosis: I65.23 Occlusion and [...] at 03/18/2019 10:28:46 by: Radha Su DO, RVT, NATANAEL, FSYVES [facility] Ultrasound ankle / brachial indices extremity completeon 03-13-2019 Non-Invasive Vascula r ____ Patient: SHERRY Bazan [facility] Rec#: [id number] (Age): 1940(79y) Study Date: 03/13/2019 Room#: Type: Outpatient Sex: M ____ Reading: Meir Aguillon MD, NATANAEL Reading: [facility] Referring: Mohsen Sarabia MD, NATANAEL Binder Technician: Tiffany Millan RDCS, RVT Procedure Info: [id number] Study Quality: Lower Arterial Doppler: adequate ____ 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 Lower [...] at 03/13/2019 12:54:02 by: Meir Aguillon MD, RPVI [facility] Interface, Rad In Heartlab Xper [facility] - 03/13/2019 1:02 PM EDT Non-Invasive Vascular ____ Patient: SHERRY Bazan [facility] Rec#: [id number] (Age): 1940(79y) Study Date: 03/13/2019 Room#: Type: Outpatient Sex: M ____ Reading: Meir Aguillon MD, RPVI Reading: [facility] Referring: Mohsen Sarabia MD, RPVI Binder Technician: Tiffany Millan RDCS,RVT Procedure Info: [id number] Study Quality: Lower Arterial Doppler: adequate ____ 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 Lower [...] at 03/13/2019 12:54:02 by: Meir Aguillon MD, [facility] FASTINGon 10-31-2018 Anion gap molar conc 8 mmol/L Normal 8-16 [facility] Calcium mass conc 9.6 mg/dL Normal 8.4-10.2 [facility] Chloride molar conc 104 mmol/L Normal 98-107 [facility] Comment on above: Result Comment: Jenna phoenix note: Triglyceride levels of 600mg/dL or higher may positively bias chloride results by approximately 2.1 mmol CO2 molar conc 28 mmol/L Normal 22-30 [facility] Creatinine mass conc 0.8 mg/dL Normal 0.7-1.2 [facility] EST. GFR, >60 Normal [facility] EST. GFR,Non >60 Normal [facility] GFR/1.73 sq M predicted among non-blacks MDRD vol rate/area (S/P/Bld) Average GFR for 70+ years old = 75. 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 Kidney failure, GFR = <15. The GFR estimate is not adjusted for extreme body surface area or acute process, nor has it been validated for women or ethnic groups other than and . Glucose mass conc 95 mg/dL Normal 70-100 [facility] Comment on above: Result Comment: NORMAL <100 mg/dL PREDIABETES 101-126 mg/dL DIABETES 126 mg/dL or higher Potassium molar conc 4.2 mmol/L Normal 3.5-5.1 [facility] Sodium molar conc 140 mmol/L Normal 137-145 [facility] Urea nitrogen mass conc 10 mg/dL Normal 7-20 [facility] CBCon 10-31-2018 ABSOLUTE BAS 0.0 X10 Normal [facility] ABSOLUTE EOS 0.10 X10 Normal [facility] ABSOLUTE NEUTROPHIL COUNT 4.1 x10 Normal 1.0-7.0 [facility] Basophils/100 WBC (Bld) 0.5 % Normal 0.0-2.0 [facility] DTYPE AUTO DIFF Normal [facility] Eosinophils/100 WBC (Bld) 1.1 % Normal 0.0-11.0 [facility] Lymphocytes #/vol (Bld) 1.10 X10 Normal [facility] Lymphocytes/100 WBC (Bld) 18.3 % Low 20.0-55.0 [facility] Monocytes #/vol (Bld) 0.5 X10 Normal [facility] Monocytes/100 WBC (Bld) 9.2 % Normal 0.0-10.0 [facility] Neutrophils/100 WBC (Bld) 70.9 % Normal 37.0-75.0 [facility] Erythrocyte distribution width Ratio (RBC) 16.0 % High 11.5-14.5 [facility] Hematocrit Volume Fraction (Bld) 33.3 % Low 42.0-52.0 [facility] Hemoglobin mass conc (Bld) 11.4 g/dL Low 14.0-18.0 [facility] MCH Entitic mass (RBC) 30.8 pg Normal 26.0-35.0 [facility] MCHC mass conc (RBC) 34.2 g/dL Normal 27.0-37.0 [facility] MCV Entitic volume (RBC) 90.0 fL Normal 80.0-100.0 [facility] Platelet mean volume Entitic volume (Bld) 7.6 fL Normal 7.4-11.0 [facility] Platelets #/vol (Bld) 271 /cmm Normal 130.0-400.0 [facility] RBC #/vol (Bld) 3.69 /cmm Low 4.0-6.1 [facility] WBC #/vol (Bld) 5.8 /cmm Normal 3.6-11.0 [facility] ISTAT TROPONIN Ion 9 Troponin I.cardiac mass conc 0.02 ng/mL Normal 0-0.08 [facility] Troponin I.cardiac mass conc 0.03 ng/mL Normal 0-0.08 [facility] US Doppler ankle/brachial in dexon 10-31-2018 Amended Report Non-Invasive Vascular ____ Patient: SHERRY Bazan [facility] Rec#: [id number] (Age): 1940(78y) Study Date: 10/31/2018 Room#: Type: Outpatient Sex: M ____ Reading: Ben Hahn MD, NATANAEL Reading: Campos Guerra M.D. Referring: Mohsen Sarabia MD, NATANAEL Binder Technician: Sussy Hardin RVT Procedure Info: [id number]... Study Quality: Lower Arterial Doppler: limited Study [...] by: Ben Hahn MD, RPVI [facility] Interface, Rad In Heartlab Xper Echopacs - 10/31/2018 12:05 PM EST Amended Report Non-Invasive Vascular ____ Patient: SHERRY Bazan [facility] Rec#: [id number] (Age): 1940(78y) Study Date: 10/31/2018 Room#: Type: Outpatient Sex: M ____ Reading: Ben Hahn MD, VI Reading: Campos Guerra M.D. Referring: Mohsen Sarabia MD, LUIZA Binder Technician: Lashawn PAINTER Sussy Procedure Info: [id number]... Study Quality: Lower Arterial Doppler: limited Study [...] at 10/31/2018 12:01:15 by: Ben Hahn MD, [facility] Ultrasound duplex arterial l eg lefton 10-31-2018 Non-Invasive Vascula r ____ Patient: SHERRY Bazan [facility] Rec#: [id number] (Age): 1940(78y) Study Date: 10/31/2018 Room#: Type: Outpatient Sex: M ____ Reading: Campos Guerra M.D. Referring: ALENA Binder Technician: Sussy Hardin RVT Procedure Info: [id number] Study Quality: Graft Duplex: adequate ____ Diagnosis: [...] vein graft, with proximal anastomosis at the INSPECTOR MOTOR VEHICLES and distal anastomosis at the peroneal artery. Measurements Left PSV Name Value Units EIA 128 cm/sec INSPECTOR MOTOR VEHICLES 111 cm/sec LAUREL - prox 0 cm/sec LAUREL - mid 0 cm/sec LAUREL - dist 0 cm/sec NEWS CONTENT SPECIALIST - mid 0 cm/sec NEWS CONTENT SPECIALIST - dist 0 cm/sec Peroneal - mid [...] at 10/31/2018 12:07:19 by: Campos Guerra M.D. [facility], Rad In Heartlab Xper [facility] - 10/31/2018 12:09 PM EST Non-Invasive Vascular ____ Patient: SHERRY Bazan [facility] Rec#: [id number] (Age): 1940(78y) Study Date: 10/31/2018 Room#: Type: Outpatient Sex: M ____ Reading: Campos Guerra M.D. Referring: ALENA Binder Technician: Sussy Hardin RVT Procedure Info: [id number] Study Quality: Graft Duplex: adequate ____ Diagnosis: [...] vein graft, with proximal anastomosis at the INSPECTOR MOTOR VEHICLES and distal anastomosis at the peroneal artery. Measurements Left PSV Name Value Units EIA 128 cm/sec INSPECTOR MOTOR VEHICLES 111 cm/sec LAUREL - prox 0 cm/sec LAUREL - mid 0 cm/sec LAUREL - dist 0 cm/sec NEWS CONTENT SPECIALIST - mid 0 cm/sec NEWS CONTENT SPECIALIST - dist 0 cm/sec Peroneal - mid [...] 12:07:19 by: Campos Guerra M.D. [facility] XR CHEST PA 1 VIEWon [...] disease. 3. Bibasilar atelectasis and/or scarring. Normal [facility] Creatinine, Serumon 10-12-19 19 Creatinine mass conc 0.79 mg/dL Low 0.8 - 1 .3 mg/dL [facility] GFR/1.73 sq M predicted among non-blacks MDRD vol rate/area (S/P/Bld) The eGFR should be used for monitoring renal function only and not for medication dosing. [facility] GFR/1.73 sq M.predicted CKD-EPI vol rate/area (S/P/Bld) 85 >=60 mL/min/1.73 m2 [facility] Interpretation and review of laboratory results Abnormal [facility] TISSUE EXAMon 10-12-2018 Case Report Surgical Pathology Report Case: [id number] Authorizing Provider: Ben Jensen, Collected: 10/10/2018 01:05 PM Ordering Location: [facility] Received: 10/11/2018 08:07 AM Endoscopy Pathologist: Carson Carroll MD Specimens: A) - Duodenum, Second Portion B) - Gastroesophageal Junction [facility] Clinical information x1bvoEOnGHAbdJDcHmS yMD VeNDLkh6mkKMIcnUAhEmGa MzNcZnRuYmpcdWMxXGRlZm Lst9acs323sHWvt9yeCPXg HbV9qMSxYXVxfXWaL008s2 nrs7rwbbPndZY6LWOhGTN0 FFvrntWilrY5UYiwdLMnEw C7BVzjtcOvFMixbgWutkTj Yqv9YXGxZ716NER0aYlrg6 rnUCI0EXKmSKPuHxDtCb2m iURrS401MQMiHFYQYTKgtK d3JASjvrWxqyVbhFVIn448 C009b7eiTRIbjcWldFaVau ywv4meJ498MQKwhMScsmFr LzMxMQGezIUqvPY0WUIeKF 5vpekpUwDoYA4gvzkfFkSu EQ1hqlr3ZQC2ULcpFZPpGh P6AVGeeUNcMLDwuEupFNaa s711MXI1KUdgo1gyg6uxdV RoMoi3DSHbQgQdMkyoECxl e8Ghq9vdSTYuwr1iHVP0dB KtzFzzg3H1zIJoOMLmfKBt okNeNTDsMaS5XZtvZS7qaj 26NRYsSIK2vl0qwIYfwCzp bjHvvXQeOLaqQ9TvAIOqg2 72XJUjI8PdZBOee7E2mcKb UqFgPFKezRW1ztJ2MLDdIG o0iHDjmcY9itFkdDMbV2zc aH69ZwHwdGMiQ8NjnW97Bs SauHZkB2KqzQ5rMYVtHF0d ncthb3boYZW4TNspYWPlWH X7CkEsQKCnl0GomnsfMMNp u3WlM3KriGpwO94tcWpoY9 0zUZRcgAiboE6pvDlypX1p ZjBcZnMyNFxxbFxwbGFpbl xmMFxmczIwXGxhbmcxMDMz AJooI1elAkJcBWUimUvgQC qui5XySWTjZFWcDiJhK3oe YmxlZWQuIFxwYXJccGFyIE JhQI3zC61oqNXvDmfqJUph YsvxYXfhPBZvQvwllWU4Rh GJKLRuf0GmgS6nHSBfao3= [facility] Pathology report final diagnosis Narrative j8patPSbGOUodZOeKtVlFS PnBRZwr4roOJAofGDiPkLn MzNcZnRuYmpcdWMxXGRlZm Hmu3xtz145yIUpq9rcXQSg GcS3eHZhDWMthFEbH604TM IjBIcue2pfh0NbPGFjySZi f8M7VQVRnjdkbQg4oMnpH8 6ze6S5KvscH4siDMNtMRWb V8QoJV3gVXYqWdc8HBO8JJ P8PXWgRSFxC8SiTZ6fDQGz rJHjFZg2q7vqyRbzCVKaCJ I8a9yvNZztynFrCW3hym5h qUt8y7gamvHbMAQvOVMckF KVWVHvQ9ZtwJyxJw9wnMw6 pWroXcptOAB2Fwe2RX7rom 19hpy3bJiePNFqpzbrGzK1 UHsnTTRmcwyxDNy1NThdDJ JnbDcyMFxtYXJncjcyMFxt XJPwfXL0PGWacPHdL0FtBN PkJGuxLEOmanb2KtTtJo1p aJIikXJvab6nbv18TEF4n8 OegMslAVQ8IPI1SnKwSm8g sCRvEHFmIO7wKiVbrJIdBE Usnc39jVjmTGilvbSodP0r YmRiXGZldDRcYWVuZGRvY1 vfWhDfzsVmZ0yuP5WkTKUn OKEtYSIxKcNgfrVgg9Fqa9 LslNJrdUy8r5ssJBIwQNRc dSgtz3dmYSN3HUGlC3B4mL Qrj5fjPUecCJGqqFQ0rhlx BDptKCGydeC5mzbpMVcnQP TvpGP6trH5NXOucGTwB7Mx fJ4tOBZpJUhlCJIwtyb9Br RqWq5ghPVflAObk8ZjdXXg TIchF80ng734YLBzwbGwA8 xwbGFpblxwbGFpblxmMFxm kjH2HSUbnkQhf7OvTIIxAK I2RDmeMFaoyZYgNTFifEax k0uhA0EkgQSgIFJzSKecWD YxXGZzMjJcbGFuZzEwMzNc aGljaFxmMVxkYmNoXGYxXG tgS0cyReQkH6OvHQEvHuPe kRLvW3czEoNZStItrPggnC 4oAfCwBnMuUhclXC8xSUIm K0yixKWyCZUqDMMjU3cvNt YblS3yrPsmJQywTeTnOlHo CbqlBUX2c9WpaxZeDRVfED SzuhFjxI4yzNykkexkiQTi b0YpoFRjpT9db8obtFqvjJ 3aOmXlKpZyFcamWZ8oBWKk V9tmjMBcOFNwXEQwU0thHm IfaV8pgJxbKRfoUoBgRkYj MlxsdHJjaFxiIDpccGFyXH BhciAgICAgIFxwbGFpblxm MVxmczIyXGxhbmcxMDMzXG wiU5wfEvVfBXOasIlwMTih d0MhCNTnPPMqOjlznxJlND AdVW4muk0fnLKcyYCpRjWx gTxiFBRkal7hdOCpSKXjDJ EqmBSje7gyqHUpfsfcSUsw czIyXGxhbmcxMDMzXGhpY2 fsMxHvITCofCpiYJlxo5Pp ULVqEMHfYktpppVfPDp3my NoXGJccGFyXHBsYWluXGYx XGZzMjJcbGFuZzEwMzNcaG ljaFxmMVxkYmNoXGYxXGxv M7okDsBiH9FaBTGiWiCqVu czSILpuBcqjH1dKkNcIcYi BpajYI1jCYDsK8brnREqLW BqHRWuV1yeTkHhmW9fyCpl MVxjZjJcZnMyMlxsdHJjaF rmFOZtzpNEBtJckPfkfK6h FtSdQkIzQqfsOX3mBUOnZ7 elxGVgQTIgMJSmT8ewFgWv sE8rkOlqIWplJuVaTgFcBf nuAGUjm7MpJSj0egbtK8Ch jDHrPJJkgQvoM9ObiVEdnW 6awWgreumaaEYdj0YxiIQt mJ7iu9xcnLmslH8nVrWsNw ZbUwqzAY3xYLNdW4cmhFZd EFEeAWUoU0ehIrPlkB0rbD xmMVxjZjJcZnMyMlxsdHJj rNguHQfnuIhssP1aJiAdFd YzHtfcDU4hUSWbZ8btpQPp GEBlIOWzF8lxDsNlhA9bpQ xmMVxjZjJcZnMyMlxiXHBh jjroVCZcDFPnWLFeU1S3SQ 2fG12dsV5wAKLhhULkg4Bv CUhwdDvaqVDqdE2frQZawA Vco3HxgJTriJWaXDgvNROt ICAgICAgTmVnYXRpdmUgZm 0wCIlgnOHowKbjADlptYE8 YXBsYXNpYVxwYXJ9 [facility] Pathology report gross observation Narrative c5sydOKiOPAhiOIuCxTbFI XaRGSpb5fmOYAubVNkCvOs MzNcZnRuYmpcdWMxXGRlZm Dbr1nge366sEQie3dqDGZk ScJ4sIJhTQPyoECsY182SK GmJBliql7nLM1mKBQojIEw x9B0EAQPlcffuRe2h9maIw PrRrC9vOFdRGgeX9igyoTk fFCwCFOuTJq9jFkwCxVgQW Xjb9Hvgp6iTAZpsOUoy6N2 GDJJdjpjkZb2jVmuF43dz9 X6UeizQ8vnFTAtCCulGUFp DTntxDCmBRJ6HOXdDYN7KH beuoTifuO4FZrmjIMlWzQ9 IDtccmVkMjIxXGdyZWVuMj S2ADAxlVUvTVLoU432VTR1 iOtrp4hrMED4NITaPINcSs YcCv8fcJQjW499OIWuMETS KNOogZe1TRParvWpohNplI CUt373D959j9lqDVGstuKm cRkXntjec5exE078GSAqiO VydzEyMjQwXHBhcGVyaDE1 KRDqLZ3dydhtRzJhPQ6stm lsSlUgOW5drdx9UUC3TXtb VIDsTrL8CAPlsZBoVHOfrX fjZXmao932TVA4TTxns3qi p7gucZQoXwc6IOLiWeLiHx khBPihi2Tdy2oaSNTwfn9w ARC4jDGseBnax1S7fMPlBJ ZfoHZgqrUeMHXhGkE9SCea RQ0qCX1kLFSfwX2xvcdoWV BnYnJkcmhlYWRccGdicmRy Nh9jlXxkAPL5OOyfO8ogbS 7kYfV6DQqoW4tsxZ2rPLz2 ESiegWW4SMZcqN3dFT4uja rzo7yoWwZcNS3axvqkj0qc LiRfYK6zqtf6j6vlDLI2VX ufIHLjWeW3doA0PTFfiMOh IXYiaOoxOMvmc692STY1RP xzYmtwYWdlXHBnbmNvbnRc cGduZGVjXHBsYWluXHBsYW luXGYwXGZzMjBccGFyZFxz s3MibpXfxDboRQTcFIo8ok QpsxiqqCh0yALcgTwaKGFn rBcixK1fCaVpQvZgVIopxD FpblxmMVxmczIwXGxhbmcx ZCZpHBktQ8xkNbSlKRCqzX dfQGkui8CdQLOmMWTxKSbw zkKvUIk2kyHxGSJhWHHxfH VuIEEuICBSZWNlaXZlZCBp biYoe7YdIEbqcwRfICOgzL AmSVCguTcqpB3cRtIaDzYm WKjfYQ9lGHRnP0juuTSzUZ LtFYQlR8jkWvWcsC2jhEnq PuujKyZlYlCiOTzhqy31NA G2y0ywmPKgQYxjOrndnZKm zzJ1QAeNESGAVJxRXdQlMT 1lPUxJTktCRUdJTnwzODAw OZqhwJYWHStIN2r4KTINYM 7sHFbjHif2KO18RNGoUAEd tHFrKTqtA147IZCmEBsvZL YyXGZzMjBcbGFuZzEwMzNc aGljaFxmMlxkYmNoXGYyXG hoS6zlRiYyS8RxOPMgHvFa dZGqfXGivSCWk1yuNRNMpL 1lciBFXHBsYWluXGYyXGZz MjBcbGFuZzEwMzNcaGljaF rsMlvcVlMaANKyCUrqT0tf SxDiA3SfOAAuMaIbcNWuzT VsyUnpEzewtVL8JEorGfur aU3hdPFBJXHVWlxXSgxcht UuDQ4BXG9MKQ8NmMR1EMSa wTY5HIITZV6HzWtMQHKhNm IsLCwyfHwwfXtcZmxkcnNs tISaZgIjhN7ycChvvX6iUi JoLjAcLUjpLQ9fQHCcE9pt nFLdTDQvXBNiZ5jsXvKekO 9jaFxmMVxjZjFcZnMyMFxs dHJjaCAiIGFuZCBkZXNpZ2 7jbOOsCALofUjpqK4uOsKo AcYvJBNFEzMBdV2vED27uG VsEWWcfrLncT7ryLkspepe bGFpblxmMVxmczIwXGxhbm saLVPqLHtzN0chOjXuUJQn tOucFGywr7AoORLlLGGiKL qumeVxBDv7fzKcGTPeORNu YWluXGYyXGZzMjAgYXJlIH Y6ofI8CY3qjH3jpHtygmzc q47dl9LwSLKyxJW3ZSIdTZ luXGYxXGZzMjBcbGFuZzEw MzNcaGljaFxmMVxkYmNoXG JrPXldT8tsQwRyG3SeICIt RqHskBRqY1dsHHIwCENmZB MzVBYlzGuepM2cOmVhItKn MCAwLjQgeCAwLjMgeCAwLj TwgOiwoO0sXtXrVkVmJFnv ZZ9eDEYpI4rskUHpAEUcRO EmM0ioIiXsnY9usIcjZOdb ZjFcZnMyMFxsdHJjaCAgY2 1luCuezV8hXuGlEcJcYROm ZWFjaFxwbGFpblxmMVxmcz MrDGtqnixlQLViVXgwN3hw SdIqPPSxwKujHNrzk1EwXE XrJSShQUbqkxGzETx8qqIn EY9dQKHzvELiqAnvbX4dVr JcZnMyMCAyXHBsYWluXGYx XGZzMjBcbGFuZzEwMzNcaG ljaFxmMVxkYmNoXGYxXGxv J9gvSjSuH9HeZRHtVpHpmW CyH7chHoAiZSErKLdtFHHs XGZzMjBcbGFuZzEwMzNcaG rpgHzvZ1xmYoRlZOIdYPhd Q7zoVrUpD5PaMLOrOzBey9 IroTUgJMQ3FbCtPYWiBDre bGFpblxmMVxmczIwXGxhbm jwRSLyFVlgH3hiCpQpLMSh sTjvZFeap7SoXEKgORPxBL jthtRqYAx4kwJoKZUvyjwm bGFpblxmMlxmczIwXHBhcl xwbGFpblxmMVxmczIwXGxh ppwwXQQtGSmiO9czUzYtSM AggYgzWHwpy0SaXPZpNLJt NUmhuhCmKSg7uqZqEHBwPL NpbWVuIEIuICBSZWNlaXZl DWXttwVys2VuGZesxoLoKT FaaQIhQGErkHwsiX4dOrLv OmZnIChcRY5fQSSmN1hgeE NrAZChQZDkQ6rzWoWceD2u aFxmMlxjZjFcZnMyMFxwcm 15TGG4n8rxyCDnXBdfWezk eNGujsW9IGtQUFMOQBdLVv HpAN5lQQqQLdeNPZeMDycx QTDdFQaflIQADRiNT2c5MB ZSRR9mTAstThm3FQ98LYJd GTCjdVRdARzpT079NQDhYA luXGYyXGZzMjBcbGFuZzEw MzNcaGljaFxmMlxkYmNoXG RfSQbyE2qlNjArW5NnUFSn KhElbXVwvQCbtRQOi1szLS QEyH9izsQXJZNhPUpjGZJs XGZzMjBcbGFuZzEwMzNcaG ljaFxmMlxkYmNoXGYyXGxv L3cjHyAvS7BzFBPaJlTdiX HikMCepFvzMwdciVD5ZYsb SeecsX8gvBUUIAZXWjdXWp eqktPqYV7CJJ4CTU5XyVM0 RSNvfXQ2TBNRFQ0MsNlTOL QsLjIsLCwyfHwwfXtcZmxk ooLmmRPcJePgaD4orMrodR 2dYkUfSiXvLUidGU4yXLWk Y1gejBIiWBVyOLIqA7jsWe FdaU9ajFtwCLmqEtReUkCf MFxsdHJjaCAiIGFuZCBkZX YdP79gtMWvDMCpbPjgnC2c IiHxXpHsBMEMGhYTZLM2iu 8bz58mvKPvAMMxGUf4heH7 jE2wFGAlPZspSULpGDBvKv BcbGFuZzEwMzNcaGljaFxm IYnzZmJoURHvGYqwE5hkCk TaG9ZsVHYgFoZpbIZbS3ck QtXyaVaieH1xHjVfIqAzDC BpcyBvbmUgdGhpbiwgdGFu PBIydP3jrDukSLOoLGMeiR xpdB7nZjZfWiIhWJnhHE9a HTCxR4odwNYeDZYvMQBiA3 vpNdMggL4kwZmhHTzeAdZt ZnMyMFxsdHJjaCAgcGllY2 UocyksIFxwbGFpblxmMlxm keNuWFFeOLI4EXGxVsH8MD AuMVxwbGFpblxmMVxmczIw GJoabetgWEYlWBwqY0teXz AcZYXvrWyzNYllu1WcKLAv DPEdIZlhfqYcSJh8jxQtHZ UiyQ4kPXVjgCRakPhjeH6u ZjJcZnMyMCAxXHBsYWluXG YxXGZzMjBcbGFuZzEwMzNc aGljaFxmMVxkYmNoXGYxXG zpI5kmOyQwG4TqEMRjHhLy zNOiZ9oqRdMsNRZzVByaTX YzXGZzMjBcbGFuZzEwMzNc oNsjuVnbF1rjPrJnANLqCK gzD3erYvOsI5CwWOLkGdXa r7BlvUGlTWO1FfRbDDLpQR unBCQmrDIfVEBvpdZpr7Pr VOVzGRN1NGqzFVowrEqfaP FpblxmMFxmczIwXHBsYWlu XGYzXGZzMjBcbGFuZzEwMz SrpEhfnYuwE4ypHfBoIEPm VGavU2gdKcZpL9YqCILnOy Nkm4XxaWDkOKM5WkQyNJVt GaKTH7QFT2hqLXSjfNGpMR BsYWluXGYyXGZzMjBccGFy ADbfv9KmCZV2OR8gjmP0eK 8xQALljbFlkc4uMZBufQum Azz3KGMzgAQtPG5qnZniMK vduMUHa4ZgwKXtoTHtXHL5 BdQsP0yasbSbvzl3GHJsoc RpMIZwIOOjK85qvO1emDCw BX9BZAJhKlS4QHRrpk4= [facility] Pathology report microscopic observation Narrative Other stain f2cjkBJsSHSowHQbEvGvGH SzZUKlu5vqWPUfbTKsVqVd MzNcZnRuYmpcdWMxXGRlZm Eka5eqi088aZXxg6wyTDEw ClN5nVFiWBYoiDSjD024YX HxTZkdz0xtq3WtUMDaoOLu e6S9HCRCphnrbRr3aOpgL4 5xo4J6ZivuM1qlFJEyWUTs N4IsHK9yFWTsBkk2FNI4VP I6SRJrFIQtA0EoDL2jAVXr oHFaISc0v2henXwoQUIhHE K1x6qrRGwkibYtAE5sem2y yGz5g0myvcAjHHZjKKGgsL TNKBCaF2LqrPvxMx7buSu9 hNcdJzwjYLV1Tbo1RH4uep 46jcx0lMydWRDhawzdOfU5 QHreEBLebuzsHYr8HDcoIJ FjyDC5JZNbwZKwA0NfDXGj LU2lgcz6AEW6WDrnCLDiUo V5FXGhhBZtXMRrsKksZPos t459FKI1JrXoUT7vC4Niz6 J7iN7ykDIqRGUloQJeOnCd FYJrwu2lnNRuJXxyd5YtAL U4yfL9zXHsgXLhVJBdQN70 Vejrg8OgPaasNIT6JKDwbl Pez1Byd0rtDgCyhpMfV6ug C7OxRTVuNPEbONGhHwTzzf Qug2Gjn5IonIOflRo9v1cn DGArJRDmhHusb2daQBU4XJ KoW8N0yGWir2daPXeaTUWe mYJ9oxX2SNYqfIDlA4DelT 9wGWGgWE9trov4a9vzKQS7 LYhrDQYeTeH3lsE2PREdiL DkEDGiwJriGZcta975FCW7 SiWhHTNuy6RvW8SojVvvS5 5zkRmdZ22kNSWxkMswkO5g vJfacO4mErAsYgGqRPfjuM xwbGFpblxmMVxmczIwXGxh rutuYAQfTCjcS5nrNwYrMA HmdOokBCobj3AtGXEnCXKl CwLpWNyxls8iN27qkFIqWG erbElmFWHqd01kaACahZQh Vr8wgYAmMokoXSP2 [facility] Vancomycin Level, Randomon 0 10-12-2018 Vancomycin mass conc 18.4 mcg/mL [facility] No established reference range. [facility] CBCon 10-11-2018 Erythrocyte distribution width Entitic volume (RBC) 14.6 % 11.6 - 14.8 % [facility] Hematocrit Volume Fraction (Bld) 26.6 % Low 41 - 53 % [facility] Hemoglobin mass conc (Bld) 8.7 g/dL Low 13.5 - 17.5 g/dL [facility] Interpretation and review of laboratory results Abnormal [facility] MCH Entitic mass (RBC) 31.2 pg 26 - 34 pg [facility] MCHC mass conc (RBC) 32.7 g/dL 31 - 37 g/dL [facility] Comment on above: Cold Agglutinin pres ent MCV Entitic volume (RBC) 95.3 fL 80 - 100 fL [facility] Nucleated RBC #/vol (Bld) 0.00 10*3/uL [facility] Nucleated RBC/100 WBC Ratio (Bld) 0.0 % [facility] Platelet mean volume Entitic volume (Bld) 9.9 fL 9 - 15.5 fL [facility] Platelets #/vol (Bld) 160 10*3/uL [facility] RBC #/vol (Bld) 2.79 10*6/uL Low [facility] WBC #/vol (Bld) 4.58 10*3/uL [facility] Creatinine, Serumon 10-11-19 Creatinine mass conc 0.95 mg/dL 0.8 - 1 .3 mg/dL [facility] GFR/1.73 sq M predicted among non-blacks MDRD vol rate/area (S/P/Bld) The eGFR should be used for monitoring renal function only and not for medication dosing. [facility] GFR/1.73 sq M.predicted CKD-EPI vol rate/area (S/P/Bld) 76 >=60 mL/min/1.73 m2 [facility] Interpretation and review of laboratory results Normal [facility] TISSUE EXAMon 10-11-2018 Case Report Surgical Pathology Report Case: [id number] Authorizing Provider: Flynn Mann DPM Collected: 10/08/2018 07:43 AM Ordering Location: [facility] Received: 10/08/2018 01:42 PM Center Periop Pathologist: Shyanne Yoder MD Specimen: Amputation, Foot, Left, Left foot to pathology [facility] Clinical information n6tfoSSbHPXgsMLfXrE yMD BnUHHxt4oyMBLqsZJdCnHq MzNcZnRuYmpcdWMxXGRlZm Ttn3qvb307oCAop3vxNOEt BoR3zEJfYBSjxGPdH482g9 dub4gvyrUpuHG5FMMyDOF0 KXcchoKsxqI1HSbpsELaXw B3IDbqbsSnZEikzlRyxeSt Hcz2DZSjL549DBR2fGqoj5 wbPEQ1OEAxPQQqMsQiSb6t sLGsO803VGOwTTAOFGAiuF v5TRAzotQhepYeoGAVs231 T472p6qeYTVyluGhdXdOdf scx5afI661CIEamAHorbWf VfEcELCblGEsfSE8JORkKG 2hppqdQhBvJI0kytheHkRn HT2ujim0GFA4TChoLDTmVa U3BGHkqUUfDWXzoKmaFYcj r548LVR4JIatn0mfy9yspM OsHih5YJEvQmJqHqnjWAvl v1Qus5atRYWoyo7wLCQ1rL WqeRuzm7H5tBKmZNBjbIDi bxYrLKRjDbN8KHbhBW8ier 74MKEwYAM3yi9qsRDnbDcc wiOeuZCdBYesG6WwHDWup5 93HOLsU1SiVQJsa4B3bcLh LiQoINNosUX9iqR2AUWbJO y2kWUmlvH9dqXjaDZeM2ia qW81HnCicHAbW8DynP31Go RywKSjO8EjkH8uPZRzUG9z fipep9mqDMB7YBaxUFZbTS C2QmZaLIDwt6MrmmncWZUv u3NpO0HcfStwO58uhKhlW7 5eFPVlbLfoaR9ueIrztW2b ZjBcZnMyNFxxbFxwbGFpbl xmMFxmczIwXGxhbmcxMDMz UKwoU5gvXnOeJSYarPkoXZ hdy4NdTEYcXTBmOfKyFAAh nBLks849JXeigtjmRI7yAy xwYXJ9 [facility] Pathology report final diagnosis Narrative h4rfyOTmTPAcwJOlDyHkLM JuCPRav3kiKQIqfHWhBvEd MzNcZnRuYmpcdWMxXGRlZm Qrj5lum739dSWgs0ccWHYz AgY4eLDvSNDjxLYcP860XL PfXXszl3pkl4NeHYHwcJMz v0U3DKVYrgivkTf1rIckY0 1ue9C8UjpoX4bdBLQwCRkt XRLqKFmncQSlDBO8DTVjYI V7LQdxmoBcwqI3NOusnLHm KmQ6AVe6q1ajjDscYQGoJL F9v2obMFiymyFfKN2vkq7x aTv9e3wmihYkCOWjIESngC GHJCEcN3RfdYrgOv4zzIr3 gQpnOiqsXSH3Rmm0ZJ0clq 18slv3sHxyTQXldjpmQjI1 CSmkPIMtffjmVEx9KCucUR JnbDcyMFxtYXJncjcyMFxt GFWfnTG8TWObcRNyE3EyZE OkYXofSHXlimp8SkLqOi1k yWNrhFCvkw0mbz31XBR0l0 TchWloBMD2LEY1DdTbEl3n yTMmDKHtFQ2iEyDqpIMcZJ Uovz87bWqmWFpxfvGeoX2h YmRiXGZldDRcYWVuZGRvY1 deRbFhcwYyN9lbU4FrFCPs CJIxBIMoPnPyuvDbe3Rgf1 TsuCZdgEy7k9ogMMSeUDCy nDyfg0xjTSX8XMFmR9J2lM Qng0fiOAewEFCqoDY5hkuf PSphIBIitoG8qhstXFtgKL EguYR0mqU0IEAfgTNuJ4Kr fJ9zBLCpAQauBFOdgro3Ww SgBv9ltWBggJXfb1KwoEMs VZuoF63zr259ZXTpgyGgI8 xwbGFpblxwbGFpblxmMFxm gaRfVXVkkiXkx7FpRKWiXK J1YHpnMXljpAToDVAnxKiq o7vgZ0EyfUDuFINzRYchII JwEWMyBhMuzOygyW9lCzJp YmFnFAqdMA2nCZPvI3oeiJ CtRTFgIDWzP5gnAsLnmU4c aFxmMVxjZjFcZnMyMFxiXH BhclxwbGFpblxmMVxmczIy TTuqjcxsJFUaQMngX7guMn TwOTOklSaeONysg4QrMDKf XGNmMVxmczIyXGIgTGVmdC Yxn767YWRbvEJ8zAA1uQ6s XHBsYWluXGYxXGZzMjJcbG FuZzEwMzNcaGljaFxmMVxk IpNjKQBqVPjpN7cwDeMsZ4 ThJMUyUbNlfHWcP9ucHeN0 XHBsYWluXGYxXGZzMjJcbG FuZzEwMzNcaGljaFxmMVxk PcXnJEYxWMbtV2zpUkSwG9 YxXGZzMjJcYlxwYXJccGFy RNTihaDah7LpBAWaVRG3AT xzMFxxbFxwbGFpblxmMFxm czIwXHBsYWluXGYxXGZzMj JcbGFuZzEwMzNcaGljaFxm LBffJtInASYcPTveD9gbMd XmZ1JsYVRxLnWuIzCnOJOw RPHZmIYzynHhcoYnx26cmV Z7oBNszBBrCF5fZFNxilSc jiXskk3whRCwZGPqcizhxT FpblxmMFxmczIwXHBhclxw YXJ9 [facility] Pathology report gross observation Narrative f6hndDOhYCGpdHMrHuEkTT EtATTil2kaMJQpuYZlNhLo MzNcZnRuYmpcdWMxXGRlZm Apg6vij905xZRmp4dmUECq FnK7tNJnUKXtbMJaL474VG FsPTlvly8eZR5dIQNrhDYm n8F7GRKMklehtYc0u2eeYf UpDdP8lVRqSWljU8wonuMy lMPcIKIxHCi9aN81BARedW 9ydGJsIDtccmVkMFxncmVl xfAhYqd5GVSzT0tiVDClGB AhJ5AtGO0uQWQjLxa7HML7 YDR5NJNcJKLgNIpbeuOjkl JvTMznsHJyPsC2DAo8b2bn bUorABKdSZR2t5ojSQjovg DpEG7bdw7mxCk9c2vishGe IPKxBQIzmFISZRCaR1BcuL nyAl5ixVv0zHbzFxznGQY5 Myw7GK1ykv27bta7kNzmBE FppvlmTbG7NYlmMDNhexfr VXr0UMrgYBLecVyrLNjvGS RleztzBVixBAAudNA7AZZs aQJdD5IyUCOwCCwsHGQbyo o7IjQvTf7itNRdlZWhwt2p pp87DHN1n3YdyPkdVYI0WD C0TwRyQe6loCReSJJuIW3q CrFciQGtKBDgiz43dEajYF schfBqwT6cQvHhRKNznCIp CRYjPFEhA5ftQgLzuaTbW7 nqR3YpRNShESYtOIRxGxJx mdTdd2Gpx2IklKQfkHj2j3 wvWORdCFPekYiox5qgBCS2 ZUPxM7M9rLGqo7vlRBbdYR SckDH7puafLIevFTInnhT8 ciedCQrmCBExvOK1azT9VZ ClsQZrN3NjfL1tMDIkPCkd MWHxqzn6QmClFs7idMBftO Smx4UgaLFoNFzmW24zt945 NZWrouOlX9wccAFcvfpzkJ FpblxmMFxmczIwXHFsXHBs YWluXGYwXGZzMjBccGxhaW 2dRmPdNvLhKHvoQC3hGRVr X4nzjVOkFXTcAXHbN8brCx FszD1okXhhGJswNfYgNeVu MFxsdHJjaCBSZWNlaXZlZC AkwcLab3CeKTxnnuNiREFw bWGiQAJgdRoixL3oGlKnKa MsJZghUY9qZKGeJ9ihsKSb PHMbHPTwQ5oiDwUfyU2pfP rrWWdmQhWhFyQkQFqpaw52 IVR8p9ncpBZjVSkzGfibuV GjhaP6NMkNQXGHAUvRPnRt SS8cBYnNRikOEYvKIbpeIL WvHEtvoWCONVtCM5i0HXTQ UB3zITsoHva2RT31GOKfVA NuyAObGDuuF163OWRhKVmz XGYxXGZzMjBcbGFuZzEwMz NcaGljaFxmMVxkYmNoXGYx OTvcR7maQsDfZ2UtLHSoDy IkkHFcwXSnbXSQc0ulBYLB sV9vkmSPYHQlZYenNQYuHI ZzMjBcbGFuZzEwMzNcaGlj aFxmMVxkYmNoXGYxXGxvY2 avWaWqT2KzEEGbJwWjaNCm nQXwoNmdOzwdmLL5LKfrVc kxxS1reSFLYBJTAvsSBiwz taNeFB1KIJ9IRE5XwTC4SU AsjVJ4DSBFXH6SsQlYGKBf LjIsLCwyfHwxfXtcZmxkcn FncXFuNwGkfG4msLxgaZ9w KsVzSlJtBAliZI0sPTCrQ6 wmwFRtPRFaQJFmA2cvLlIg rK3wdOlfAAwsQlHiMbZgFN xsdHJjaCAiIGFuZCBkZXNp E41hnHItCHKrtSnozU6mAz XoWoThXCUoGTK6LXIia3Yj KK5miMWaiWvcnlnagBJwpb xmMVxmczIwXGxhbmcxMDMz LLdqS1dnIzGeXBQmyJwpKO gha4HrJLYuTXWhHPbkrzAo PAd7egBhMPTjjAgxcE2kPs JcZnMyMCAgaXMgYSBkaXNh kvXlG4LcHEWoWITkRKK9ZI FsyhHqh720KGJpNEB8SAdc XYH2DOGfQ32aPFBCmUKap1 sxfpQonrM8VL2tr0bvsSGc YEpraM6ipNAnErBcVDclPM RusY1ue29yjBwuDRJyQBTd WK7jVVYlLMBdlCR1GXjmgN QbOdRfSvA1xJVfFF8uy7Sv OZH6xdUjW5Dpr1LfvYwaFS Kln6WakZClD4Wkd2JlaLQh sT3qfUSdODItLKGoySJlIT 5eXGVfguMsUr8aQPuhtOPx PUQqc9OcJp6vLWRicjWnGD ihgGVmTRJeQQUqjcCiGW70 NELoGHVgMIsaqVgiHIY9NT 9jzV3fyIZhsF35RHU3cLjh s2OwMDLvrT7ennXjdI6nWR NlcGFyYXRlbHkgcmVjZWl2 ZWQgYXJlIHRoZSBmaXJzdC vsu9Quj04oLUMrEWT3lZar NBLduO7eeHFicv0pYr0dON EqUF4gJAUhnBMzioCkP0He LTTdkJDrqQDbZx5xYV2hUX GtKVRnqcXvR2TiDBAyq6Gr ZmFjZXMgYXJlIGdyYXktd2 zkbTXiJYOta221sP3nRMom BFJqqKSgNFZwj1IgjNViGW N6iT6vltj1JXBKHH8cANDn QSExbvYrmFu8DBUnv0peEI Atx9SrtCpxfgNoKGMrrA8i REIxTOTyBbJQUi7dKDZmAA YtvmKikPk7YBUqHBZpw4Av NqObtzYrFlygQ8btEFSypY GxMM9hCLZdf6xnWcWSUg9d e10jIKQhFFLpmY6bBdhtR4 anmXfqH1wnxfPoMYSbeC1h GLCgZ8XoO5caiBKkFaWOCE 9tDWCdEGUvqmPkbVy3TOPz jZGgwZZdNw0zZIldBMBqAQ dgjYVlZYX5NDR7APRneMMt z6KatDB1yMZtDIExgFUkZB V4kkRoBt9gmSIrz90hVSCv TCAumSKlJgfoLO5hFL2jUW 9pEDDdlktkNURcH4YVQ8WY Cd7wkXayMEDaxogmJJVhO3 Gcp8HjXSlaiJnnRHXxt06z cLDeNg1dpNKuVNK5VgGIjL OzbqYrTHCpLEA3uQ4fsYG7 SOnlh7LgsEUiSR6sHsXiBP FKjZQqoNAvV9lbIbd4LGVe Xu8jUJRKk7a8uDP6okrcH0 ggNDMyMTQuXHBhcn0= [facility] Pathology report microscopic observation Narrative Other stain o0ufqVLuZOOjwYFnOvRgRF YhICVrh5yeRCDflXHhXwVt MzNcZnRuYmpcdWMxXGRlZm Mhx5vjv313iXMrp6rcEKHt EkL2eLBsBDBnpPXzD787OG JjMBgpr0kuu4MaSLLchBZm k2I6DBDFbynyrDi1dTpbK0 6mz6I2PjndD7jnVZLaIXYx N7KrZM1dLDEkAce8DTW8KE R2MASvYHYrT8NdJQ9cBZCx uGBuEFx1n8ltoIshJPUhYN N3k0ujAXgomvAkDP4mpa4i xTf2s6irmiOuNDBzZWAawU JUALGrA8DibZgrDq7tmKx5 hYwfTaicHYN5Vuo1TY5apz 52lnv9tLnjZSYasnhkTdV2 EOlbZXReqezgZBd9LOwmEE PviMM1MUYqpXNkK4QsRXFg GX5yndr0OLP7QFijTJIgYb Y5MZJrrFNiRNYjvScdWHjg y922VMB9XjIeCL5fM7Pos9 R8zH9slSRsJWOkwXRkVsJd LLVhaa7ueTZiWHkby1LcFW F3bbW0yZYkpRFuMJPeWR06 Seyaf3YbEsjfDFC1AQXoum Zlr2Vln6bdLwHoakJvY1re R7UuEAHrIBWeWFFbDyIbey Kow2Oiv2IerYQitKo6p3ni YMJvYVEhmXjpv4rgCXH8OG XdZ7J1mAUkj2mvOVxqTXWc kNE2cfW5MOLlcSTwO3XorJ 4iQRWqQJ7rghu0j1biQVK0 HWarIPUqMeY6qfR0WLRdiG LxEZFygDiqICaka009QEV0 GhMkFLIjg2ZfC3IehEymS1 5smTzbE57pBVPopMyhgA5i uQfkmB4yFnEcCrOsYIuktI xwbGFpblxmMVxmczIwXGxh mpnhVMClMWvvL4tjLtJoDV CogYepCRqot0XcGQUcEPVo QePwQQzqgo2rP97qiWFlEA yoaHrsXJRsm99nuGIogSYn Hz1hvYEvEuubVEY0 [facility] Vancomycin Level, Randomon 0 - Vancomycin mass conc 14.3 mcg/mL [facility] No established reference range. [facility] XR Foot Left 2 Viewson [...] malleolus. Overlying casting obscures detail. 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 Surgical drain present. [employer] Workstation ID: [id number] [facility] Interface, Rad In Fu ji [...] the midfoot Chopart articulations. Surgical drain present. [employer] Workstation ID: [id number] [facility] Creatinine, Serumon 10-10-19 19 Creatinine mass conc 1.06 mg/dL 0.8 - 1 .3 mg/dL [facility] GFR/1.73 sq M predicted among non-blacks MDRD vol rate/area (S/P/Bld) The eGFR should be used for monitoring renal function only and not for medication dosing. [facility] GFR/1.73 sq M.predicted CKD-EPI vol rate/area (S/P/Bld) 66 >=60 mL/min/1.73 m2 [facility] Interpretation and review of laboratory results Normal [facility] ECG 12-LEADon 10-10-2018 Atrial Rate 72 BPM [facility] P [place] -163 degrees [facility] P-R Interval 162 ms [facility] Q-T Interval 418 ms [facility] QRS Duration 98 ms [facility] QTC Calculation (Bezet) 457 ms [facility] R [place] 137 degrees [facility] T [place] 134 degrees [facility] Ventricular Rate 72 BPM [facility] th Suspect arm lead reversal, interpretation assumes no reversal Unusual P axis, possible ectopic atrial rhythm Lateral infarct , age undetermined Abnormal ECG When compared with ECG of 05-SEP-2018 13:28, Ectopic atrial rhythm has replaced Sinus rhythm QRS axis Shifted right Confirmed by Maxim Ward M.D. ([id number]) on 10/10/2018 1:34:17 PM [facility] Hemoglobin and Hematocriton 10-10-2018 Hematocrit Volume Fraction (Bld) 25.1 % Low 41 - 53 % [facility] Comment on above: PRE-WAMED FOR COLD A GGLUTININ Hemoglobin mass conc (Bld) 8.2 g/dL Low 13.5 - 17.5 g/dL [facility] Interpretation and review of laboratory results Abnormal [facility] Hematocrit Volume Fraction (Bld) 24.0 % Low 41 - 53 % [facility] Hemoglobin mass conc (Bld) 8.3 g/dL Low 13.5 - 17.5 g/dL [facility] Interpretation and review of laboratory results Abnormal [facility] Vancomycin Level, Troughon 0 10-10-2018 Interpretation and review of laboratory results Abnormal [facility] Vancomycin trough mass conc 27.4 ug/mL Critically high [facility] XR Chest 1 Viewon 10-10-2018 Interface, Rad In Fu ji Speechq - 10/10/2018 8:25 AM EST EXAMINATION: [...] of underlying COPD. TRP/jw Workstation ID: [id number] [facility] 1. Increased bibasil ar pulmonary opacities may represent atelectasis, pneumonia, and/or aspiration. Recommend radiographic follow-up to complete resolution. 2. Findings suggestive of underlying COPD. TRP/jw Workstation ID: [id number] [facility] EXAMINATION: SINGLE XRAY VIEW OF [...] evidence of acute osseous abnormalities. [facility] Basic Metabolic Panelon 09-28 Anion gap molar conc 16 mmol/L 10 - 20 mmol/L [facility] Calcium mass conc 8.6 mg/dL 8.4 - 10.2 mg/dL [facility] Chloride molar conc 106 mmol/L 98 - 108 mmol/L [facility] Creatinine mass conc 0.90 mg/dL 0.8 - 1 .3 mg/dL [facility] GFR/1.73 sq M predicted among non-blacks MDRD vol rate/area (S/P/Bld) The eGFR should be used for monitoring renal function only and not for medication dosing. [facility] GFR/1.73 sq M.predicted CKD-EPI vol rate/area (S/P/Bld) 81 >=60 mL/min/1.73 m2 [facility] Glucose mass conc 111 mg/dL High 65 - 99 mg/dL [facility] HCO3 molar conc 23 mmol/L 21 - 32 mmol/L [facility] Interpretation and review of laboratory results Abnormal [facility] Potassium molar conc 4.2 mmol/L 3.5 - 5 .1 mmol/L [facility] Sodium molar conc 141 mmol/L 135 - 145 mmol/L [facility] Urea nitrogen mass conc 9 mg/dL 8 - 25 mg/dL [facility] Urea nitrogen/Creatinine mass ratio 10.0 mg/mg [facility] CBCon 10-09-2018 Erythrocyte distribution width Entitic volume (RBC) 15.3 % High 11.6 - 14.8 % [facility] Hematocrit Volume Fraction (Bld) 27.7 % Low 41 - 53 % [facility] Hemoglobin mass conc (Bld) 8.9 g/dL Low 13.5 - 17.5 g/dL [facility] Interpretation and review of laboratory results Abnormal [facility] MCH Entitic mass (RBC) 31.2 pg 26 - 34 pg [facility] MCHC mass conc (RBC) 32.1 g/dL 31 - 37 g/dL [facility] Comment on above: Cold Agglutinin pres ent MCV Entitic volume (RBC) 97.2 fL 80 - 100 fL [facility] Nucleated RBC #/vol (Bld) 0.00 10*3/uL [facility] Nucleated RBC/100 WBC Ratio (Bld) 0.0 % [facility] Platelet mean volume Entitic volume (Bld) 9.7 fL 9 - 15.5 fL [facility] Platelets #/vol (Bld) 187 10*3/uL [facility] RBC #/vol (Bld) 2.85 10*6/uL Low [facility] WBC #/vol (Bld) 5.18 10*3/uL [facility] Creatinine, Serumon 10-09-19 19 Creatinine mass conc 0.95 mg/dL 0.8 - 1 .3 mg/dL [facility] GFR/1.73 sq M predicted among non-blacks MDRD vol rate/area (S/P/Bld) The eGFR should be used for monitoring renal function only and not for medication dosing. [facility] GFR/1.73 sq M.predicted CKD-EPI vol rate/area (S/P/Bld) 76 >=60 mL/min/1.73 m2 [facility] Interpretation and review of laboratory results Normal [facility] Gastrocult Gastricon 019 Hemoglobin.gastrointes tinal Ql (Ciera fld) Positive Abnormal Negative for Occult Blood [facility] Interpretation and review of laboratory results Abnormal [facility] Hemoglobin and Hematocriton 10-09-2018 Hematocrit Volume Fraction (Bld) 23.2 % Low 41 - 53 % [facility] Hemoglobin mass conc (Bld) 8.6 g/dL Low 13.5 - 17.5 g/dL [facility] Interpretation and review of laboratory results Abnormal [facility] XR CHEST PA/APon 10-09-2018 XR [...] resolution. 2. Findings suggestive of underlying COPD. [facility]/ Workstation ID: [id number] Dictated by: MOJGAN PINO on MonOct 09, 2018 2:31:15 PM EST Transcribed by: MICHAEL ROBLES on MonOct 09, 2018 2:40:23 PM EST Finalized by: MOJGAN PINO on MonOct 10, 2018 8:22:[address] [facility] Comment on above: Order Comment: Reaso n for exam?:Dyspnea Injury/Trauma or Illness?:Illness/Other How long have you had these symptoms (acute/chronic)?:Acute History of cancer?:unk Surgeries, chemotherapy, or radiation?:YES Type of Exam?:Initial Additional signs and symptoms?:na Basic Metabolic Panelon 09-28 Anion gap molar conc 16 mmol/L 10 - 20 mmol/L [facility] Calcium mass conc 9.1 mg/dL 8.4 - 10.2 mg/dL [facility] Chloride molar conc 108 mmol/L 98 - 108 mmol/L [facility] Creatinine mass conc 0.70 mg/dL Low 0.8 - 1 .3 mg/dL [facility] GFR/1.73 sq M predicted among non-blacks MDRD vol rate/area (S/P/Bld) The eGFR should be used for monitoring renal function only and not for medication dosing. [facility] GFR/1.73 sq M.predicted CKD-EPI vol rate/area (S/P/Bld) 90 >=60 mL/min/1.73 m2 [facility] Glucose mass conc 90 mg/dL 65 - 99 mg/dL [facility] HCO3 molar conc 23 mmol/L 21 - 32 mmol/L [facility] Interpretation and review of laboratory results Abnormal [facility] Potassium molar conc 3.8 mmol/L 3.5 - 5 .1 mmol/L [facility] Sodium molar conc 143 mmol/L 135 - 145 mmol/L [facility] Urea nitrogen mass conc 6 mg/dL Low 8 - 25 mg/dL [facility] Urea nitrogen/Creatinine mass ratio 8.6 mg/mg Low [facility] CBCon 10-08-2018 Erythrocyte distribution width Entitic volume (RBC) 15.5 % High 11.6 - 14.8 % [facility] Hematocrit Volume Fraction (Bld) 31.0 % Low 41 - 53 % [facility] Hemoglobin mass conc (Bld) 10.4 g/dL Low 13.5 - 17.5 g/dL [facility] Interpretation and review of laboratory results Abnormal [facility] MCH Entitic mass (RBC) 33.4 pg 26 - 34 pg [facility] MCHC mass conc (RBC) 33.5 g/dL 31 - 37 g/dL [facility] MCV Entitic volume (RBC) 99.7 fL 80 - 100 fL [facility] Nucleated RBC #/vol (Bld) 0.00 10*3/uL [facility] Nucleated RBC/100 WBC Ratio (Bld) 0.0 % [facility] Platelet mean volume Entitic volume (Bld) 9.7 fL 9 - 15.5 fL [facility] Platelets #/vol (Bld) 202 10*3/uL [facility] Comment on above: Platelets clumped on peripheral smear. Results may be affected RBC #/vol (Bld) 3.11 10*6/uL Low [facility] WBC #/vol (Bld) 3.86 10*3/uL [facility] ECHOCARDIOGRAM COMPLETEon ECHOCARDIOGRAM COMPLETE REPORT ____ Patient: SHERRY Bazan [facility] Rec#: [id number] (Age): 1940(78y) Height: 188(cm)/73(in) Study Date: 10/08/2018 Weight: 99(kg)/218(lbs) Room#: 2456 BSA: [id number] Type: Inpatient Loc: [facility] Echo Lab Sex: M ____ Reading: MD Nikhil Davalos Referring: AARON CHOI DANIEL Clasp Machine Operator: Geovani Matson [facility], RVT History: Hyperlipidemia Hypertension. Valvular disease. Diagnosis: ICD-10-PCS Encounter for preprocedural cardiovascular examination (Z01.810) Cardiac Complications, not classified (997.1) CPT Code(s): ECHO COMPLETE W/ DOPPLER (83730) HCPCS Code C8923 Echo Full w/ contrast. [...] 0.9) PV peak gradient 3.23 mmHg none [place] end-diastolic Vmax 1.41 m/sec none PA end-diastolic pressure 12.95 mmHg none PV acceleration time 77 msec none Electronically Signed at 10/08/2018 17:26:05 by: Emmanuel Connor MD [facility] REPORT ____ Patient: SHERRY Jones Rec#: [id number] (Age): 1940(78y) Height: 188(cm)/73(in) Study Date: 10/08/2018 Weight: 99(kg)/218(lbs) Room#: 2456 BSA: [id number] Type: Inpatient Loc: [facility] Lab Sex: M ____ Reading: MD Nikhil Davalos Referring: AARON CHOI DANIEL Clasp Machine Operator: Geovani Matson RD, RVT History: Hyperlipidemia Hypertension. Valvular disease. Diagnosis: ICD-10-PCS Encounter for preprocedural cardiovascular examination (Z01.810) Cardiac Complications, not classified (997.1) CPT Code(s): ECHO COMPLETE W/ DOPPLER (07969) HCPCS Code C8923 Echo Full w/ contrast. [...] 0.9) PV peak gradient 3.23 mmHg none KS end-diastolic Vmax 1.41 m/sec none PA end-diastolic pressure 12.95 mmHg none PV acceleration time 77 msec none Electronically Signed at 10/08/2018 17:26:05 by: Emmanuel Connor MD [facility] Interface, Rad In [facility] Xper Echopacs - 10/08/2018 5:27 PM EST REPORT ____ Patient: SHERRY Jones Rec#: [id number] (Age): 1940(78y) Height: 188(cm)/73(in) Study Date: 10/08/2018 Weight: 99(kg)/218(lbs) Room#: 2456 BSA: [id number] Type: Inpatient Loc: [facility] Lab Sex: M ____ Reading: Emmanuel Connor MD F Referring: AARON CHOI DANIEL Clasp Machine Operator: Geovani Matson [facility], T History: Hyperlipidemia Hypertension. Valvular disease. Diagnosis: ICD-10-PCS Encounter for preprocedural cardiovascular examination (Z01.810) Cardiac Complications, not classified (997.1) CPT Code(s): ECHO COMPLETE W/ DOPPLER (65887) HCPCS Code C8923 Echo Full w/ contrast. [...] 0.9) PV peak gradient 3.23 mmHg none KS end-diastolic Vmax 1.41 m/sec none PA end-diastolic pressure 12.95 mmHg none PV acceleration time 77 msec none Electronically Signed at 10/08/2018 17:26:05 by: Emmanuel Connor MD [facility] PT/INRon 10-08-2018 INR Coag RelTime (PPP) 1.1 {INR} Oh [facility] Interpretation and review of laboratory results Normal [facility] Prothrombin time (PT) Coag time (PPP) 13.9 s [facility] During the induction phase of oral anticoagulation, the INR may not reflect the anticoagulation status of the patient. Therapeutic ranges for INR's are: Most clinical situations: INR 2.0-3.0 Mechanical Prosthetic Valve: INR 2.5-3.5 Critical: INR >5.0 [facility] XR FOOT LEFT 2 VIEWSon [...] the midfoot Chopart articulations. Surgical drain present. /[facility] health system Workstation ID: [id number] Dictated by: NAT RHODES on MonOct 08, 2018 1:43:13 PM EST Transcribed by: JAK WATSON on MonOct 08, 2018 2:16:35 PM EST Finalized by: NAT RHODES on MonOct 11, 2018 8:36:46 AM EST [facility] Comment on above: Order Comment: Reaso n for exam?:post-op foot / ankle Injury/Trauma or Illness?:Illness/Other How long have you had these symptoms (acute/chronic)?:Unknown History of cancer?:unk Surgeries, chemotherapy, or radiation?:YES Type of Exam?:Ongoing Additional signs and symptoms?:UNL Creatinine, Serumon 10-07-19 19 Creatinine mass conc 0.70 mg/dL Low 0.8 - 1 .3 mg/dL [facility] GFR/1.73 sq M predicted among non-blacks MDRD vol rate/area (S/P/Bld) The eGFR should be used for monitoring renal function only and not for medication dosing. [facility] GFR/1.73 sq M.predicted CKD-EPI vol rate/area (S/P/Bld) 90 >=60 mL/min/1.73 m2 [facility] Interpretation and review of laboratory results Abnormal [facility] Vancomycin Level, Troughon 0 10-07-2018 Interpretation and review of laboratory results Normal [facility] Vancomycin trough mass conc 10.9 ug/mL [facility] XR FOOT LEFT 3+ VIEWS (STAND KHALIF)on 10-06-2018 1. Limited evaluatio n due to overlying dressing material and diffuse osteopenia. No radiographic evidence of soft tissue gas. No radiographic evidence of new area of osseous destruction. 2. No acute osseous abnormalities identified. RECOMMENDATIONS: If further evaluation is clinically warranted, consider MRI or CT. [employer] Workstation ID: [id number] [facility] Interface, Rad In Fu ji Speechq - 10/06/2018 3:46 PM EST [...] is clinically warranted, consider MRI or CT. [employer]P/[employer] Workstation ID: [id number] [facility] EXAMINATION: 3 XRAY VIEWS OF [...] fixation of the distal tibia. [facility] Basic Metabolic Panelon Anion gap molar conc 15 mmol/L 10 - 20 mmol/L [facility] Calcium mass conc 9.1 mg/dL 8.4 - 10.2 mg/dL [facility] Chloride molar conc 109 mmol/L High 98 - 108 mmol/L [facility] Creatinine mass conc 0.67 mg/dL Low 0.8 - 1 .3 mg/dL [facility] GFR/1.73 sq M predicted among non-blacks MDRD vol rate/area (S/P/Bld) The eGFR should be used for monitoring renal function only and not for medication dosing. [facility] GFR/1.73 sq M.predicted CKD-EPI vol rate/area (S/P/Bld) 91 >=60 mL/min/1.73 m2 [facility] Glucose mass conc 92 mg/dL 65 - 99 mg/dL [facility] HCO3 molar conc 23 mmol/L 21 - 32 mmol/L [facility] Interpretation and review of laboratory results Abnormal [facility] Potassium molar conc 4.2 mmol/L 3.5 - 5 .1 mmol/L [facility] Sodium molar conc 143 mmol/L 135 - 145 mmol/L [facility] Urea nitrogen mass conc 9 mg/dL 8 - 25 mg/dL [facility] Urea nitrogen/Creatinine mass ratio 13.4 mg/mg [facility] CBCon 10-05-2018 Comment PERIPHERAL SMEAR REVIEWED MANUALLY [facility] Erythrocyte distribution width Entitic volume (RBC) 15.5 % High 11.6 - 14.8 % [facility] Hematocrit Volume Fraction (Bld) 31.9 % Low 41 - 53 % [facility] Hemoglobin mass conc (Bld) 11.0 g/dL Low 13.5 - 17.5 g/dL [facility] Interpretation and review of laboratory results Abnormal [facility] MCH Entitic mass (RBC) 34.2 pg High 26 - 34 pg [facility] MCHC mass conc (RBC) 34.5 g/dL 31 - 37 g/dL [facility] MCV Entitic volume (RBC) 99.1 fL 80 - 100 fL [facility] Nucleated RBC #/vol (Bld) 0.00 10*3/uL [facility] Nucleated RBC/100 WBC Ratio (Bld) 0.0 % [facility] Platelet mean volume Entitic volume (Bld) 9.5 fL 9 - 15.5 fL [facility] Platelets #/vol (Bld) 237 10*3/uL [facility] RBC #/vol (Bld) 3.22 10*6/uL Low [facility] lth WBC #/vol (Bld) 3.95 10*3/uL Low [facility] Prewarmed Patient beck s cold agglutinin. [facility] CBC WITH AUTO DIFFERENTIALon 10-04-2018 Basophils #/vol (Bld) 0.03 10*3/uL [facility] Basophils/100 WBC (Bld) 0.6 % [facility] Eosinophils #/vol (Bld) 0.14 10*3/uL [facility] Eosinophils/100 WBC (Bld) 3.0 % [facility] Erythrocyte distribution width Entitic volume (RBC) 15.7 % High 11.6 - 14.8 % [facility] Hematocrit Volume Fraction (Bld) 32.7 % Low 41 - 53 % [facility] Hemoglobin mass conc (Bld) 11.3 g/dL Low 13.5 - 17.5 g/dL [facility] Immature granulocytes #/vol (Bld) 0.02 10*3/uL [facility] Immature granulocytes/100 WBC (Bld) 0.40 % [facility] Comment on above: The IG parameter is the percentage of metamyelocytes, myelocytes, and promyelocytes. Interpretation and review of laboratory results Abnormal [facility] Lymphocytes #/vol (Bld) 0.94 10*3/uL [facility] Lymphocytes/100 WBC (Bld) 20.3 % [facility] MCH Entitic mass (RBC) 33.6 pg 26 - 34 pg [facility] MCHC mass conc (RBC) 34.6 g/dL 31 - 37 g/dL [facility] MCV Entitic volume (RBC) 97.3 fL 80 - 100 fL [facility] Monocytes #/vol (Bld) 0.46 10*3/uL [facility] Monocytes/100 WBC (Bld) 10.0 % [facility] Neutrophils #/vol (Bld) 3.03 10*3/uL [facility] Neutrophils/100 WBC (Bld) 65.7 % [facility] Nucleated RBC #/vol (Bld) 0.00 10*3/uL [facility] Nucleated RBC/100 WBC Ratio (Bld) 0.0 % [facility] Platelet mean volume Entitic volume (Bld) 8.5 fL Low 9 - 15.5 fL [facility] Platelets #/vol (Bld) 248 10*3/uL [facility] RBC #/vol (Bld) 3.36 10*6/uL Low [facility] WBC #/vol (Bld) 4.62 10*3/uL [facility] CRP, Inflammationon 10-04-19 19 CRP mass conc 12.5 mg/L High 0 - 10 mg/L [facility] Interpretation and review of laboratory results Abnormal [facility] Comprehensive Metabolic Pane alexandra 10-04-2018 Albumin mass conc 3.5 g/dL 3.2 - 5.2 g/dL [facility] ALP enzyme act/vol 109 U/L 40 - 150 U/L [facility] ALT enzyme act/vol 25 U/L 0 - 40 U/L [facility] alth Anion gap molar conc 16 mmol/L 10 - 20 mmol/L [facility] AST enzyme act/vol 25 U/L 0 - 45 U/L [facility] alth Bilirubin mass conc 0.5 mg/dL 0 - 1.3 mg/dL [facility] Calcium mass conc 9.3 mg/dL 8.4 - 10.2 mg/dL [facility] Chloride molar conc 104 mmol/L 98 - 108 mmol/L [facility] Creatinine mass conc 0.92 mg/dL 0.8 - 1 .3 mg/dL [facility] GFR/1.73 sq M predicted among non-blacks MDRD vol rate/area (S/P/Bld) The eGFR should be used for monitoring renal function only and not for medication dosing. [facility] GFR/1.73 sq M.predicted CKD-EPI vol rate/area (S/P/Bld) 79 >=60 mL/min/1.73 m2 [facility] Glucose mass conc 94 mg/dL 65 - 99 mg/dL [facility] HCO3 molar conc 26 mmol/L 21 - 32 mmol/L [facility] Interpretation and review of laboratory results Normal [facility] Potassium molar conc 4.6 mmol/L 3.5 - 5 .1 mmol/L [facility] Protein mass conc 6.9 g/dL 6 - 8 g/dL [facility] Sodium molar conc 141 mmol/L 135 - 145 mmol/L [facility] Urea nitrogen mass conc 12 mg/dL 8 - 25 mg/dL [facility] [facility] Urea nitrogen/Creatinine mass ratio 13.0 mg/mg [facility] Hemoglobin A1con 10-04-2018 Average glucose Estimated from glycated hemoglobin mass conc (Bld) 88 mg/dL 68 - 126 mg/dL [facility] Hemoglobin A1c/Hemoglobin.total mass fraction (Bld) 4.7 % 4.2 - 6 % [facility] Interpretation and review of laboratory results Normal [facility] Sedimentation Rateon 019 ESR Velocity (Bld) 9 mm/h [facility] alth Interpretation and review of laboratory results Normal [facility] XR FOOT LEFT 3+ VIEWS [...] is clinically warranted, consider MRI or CT. [facility]/dbg Workstation ID: [id number] Dictated by: MOJGAN PINO on MonOct 04, 2018 7:30:36 PM EST Transcribed by: RACHEAL ARZATE on MonOct 04, 2018 7:42:46 PM EST Finalized by: MOJGAN PINO on [facility] Oct 06, 2018 3:44:[address] [facility] Comment on above: Order Comment: Reaso n for exam?:Left foot gangrene Injury/Trauma or Illness?:Illness/Other How long have you had these symptoms (acute/chronic)?:Unknown History of cancer?:unk Surgeries, chemotherapy, or radiation?:unk Type of Exam?:Unknown Additional signs and symptoms?:Left foot gangrene Albuminon 09-20-2018 Albumin mass conc 3.3 g/dL 3.2 - 5.2 g/dL [facility] Interpretation and review of laboratory results Normal [facility] Otheron 09-20-2018 No acute osseous abnormalities identified. Status post remote ORIF of the distal fibula. Extensive vascular calcifications. TIME PLUS Q/[place] Workstation ID: [id number] [facility] EXAMINATION: XR FOOT LEFT 3+ [...] bony demineralization. Extensive vascular calcifications. [facility] Kin, Anton In Fu ji Speechq - 09/21/2018 12:01 [...] of the distal fibula. Extensive vascular calcifications. [employer]/[place] Workstation ID: [id number] [facility] Interpretation and review of laboratory results Abnormal [facility] Prealbuminon 09-20-2018 Prealbumin mass conc 16.7 mg/dL Low 20 - 40 mg/dL [facility] Protein,Totalon 09-20-2018 Protein mass conc 5.9 g/dL Low 6 - 8 g/dL [facility] Basic Metabolic Panelon 08-28 Anion gap molar conc 12 mmol/L 10 - 20 mmol/L [facility] Calcium mass conc 8.9 mg/dL 8.4 - 10.2 mg/dL [facility] Chloride molar conc 101 mmol/L 98 - 108 mmol/L [facility] Creatinine mass conc 0.56 mg/dL Low 0.8 - 1 .3 mg/dL [facility] GFR/1.73 sq M predicted among non-blacks MDRD vol rate/area (S/P/Bld) The eGFR should be used for monitoring renal function only and not for medication dosing. [facility] GFR/1.73 sq M.predicted CKD-EPI vol rate/area (S/P/Bld) 98 >=60 mL/min/1.73 m2 [facility] Glucose mass conc 117 mg/dL High 65 - 99 mg/dL [facility] HCO3 molar conc 24 mmol/L 21 - 32 mmol/L [facility] Interpretation and review of laboratory results Abnormal [facility] Potassium molar conc 4.0 mmol/L 3.5 - 5 .1 mmol/L [facility] Sodium molar conc 133 mmol/L Low 135 - 145 mmol/L [facility] Urea nitrogen mass conc 12 mg/dL 8 - 25 mg/dL [facility] Urea nitrogen/Creatinine mass ratio 21.4 mg/mg High [facility] CBCon 09-13-2018 Erythrocyte distribution width Entitic volume (RBC) 14.1 % 11.6 - 14.8 % [facility] Hematocrit Volume Fraction (Bld) 25.4 % Low 41 - 53 % [facility] Hemoglobin mass conc (Bld) 8.6 g/dL Low 13.5 - 17.5 g/dL [facility] Interpretation and review of laboratory results Abnormal [facility] MCH Entitic mass (RBC) 31.2 pg 26 - 34 pg [facility] MCHC mass conc (RBC) 33.9 g/dL 31 - 37 g/dL [facility] Comment on above: Cold Agglutinin pres ent MCV Entitic volume (RBC) 92.0 fL 80 - 100 fL [facility] Nucleated RBC #/vol (Bld) 0.00 10*3/uL [facility] Nucleated RBC/100 WBC Ratio (Bld) 0.0 % [facility] Platelet mean volume Entitic volume (Bld) 10.0 fL 9 - 15.5 fL [facility] Platelets #/vol (Bld) 258 10*3/uL [facility] RBC #/vol (Bld) 2.76 10*6/uL Low [facility] WBC #/vol (Bld) 9.14 10*3/uL [facility] Hemoglobin and Hematocriton 09-13-2018 Hematocrit Volume Fraction (Bld) 24.1 % Low 41 - 53 % [facility] Hemoglobin mass conc (Bld) 7.7 g/dL Low 13.5 - 17.5 g/dL [facility] Interpretation and review of laboratory results Abnormal [facility] PT/INRon 09-13-2018 INR Coag RelTime (PPP) 1.2 {INR} [facility] Interpretation and review of laboratory results Abnormal [facility] Prothrombin time (PT) Coag time (PPP) 14.9 s [facility] During the induction phase of oral anticoagulation, the INR may not reflect the anticoagulation status of the patient. Therapeutic ranges for INR's are: Most clinical situations: INR 2.0-3.0 Mechanical Prosthetic Valve: INR 2.5-3.5 Critical: INR >5.0 [facility] Basic Metabolic Panelon 08-28 Anion gap molar conc 11 mmol/L 10 - 20 mmol/L [facility] Calcium mass conc 8.6 mg/dL 8.4 - 10.2 mg/dL [facility] Chloride molar conc 97 mmol/L Low 98 - 108 mmol/L [facility] Creatinine mass conc 0.78 mg/dL Low 0.8 - 1 .3 mg/dL [facility] GFR/1.73 sq M predicted among non-blacks MDRD vol rate/area (S/P/Bld) The eGFR should be used for monitoring renal function only and not for medication dosing. [facility] GFR/1.73 sq M.predicted CKD-EPI vol rate/area (S/P/Bld) 86 >=60 mL/min/1.73 m2 [facility] Glucose mass conc 142 mg/dL High 65 - 99 mg/dL [facility] HCO3 molar conc 26 mmol/L 21 - 32 mmol/L [facility] Interpretation and review of laboratory results Abnormal [facility] Potassium molar conc 4.7 mmol/L 3.5 - 5 .1 mmol/L [facility] Sodium molar conc 129 mmol/L Low 135 - 145 mmol/L [facility] Urea nitrogen mass conc 12 mg/dL 8 - 25 mg/dL [facility] Urea nitrogen/Creatinine mass ratio 15.4 mg/mg [facility] CBCon 09-12-2018 Erythrocyte distribution width Entitic volume (RBC) 13.8 % 11.6 - 14.8 % [facility] Hematocrit Volume Fraction (Bld) 25.6 % Low 41 - 53 % [facility] Hemoglobin mass conc (Bld) 8.9 g/dL Low 13.5 - 17.5 g/dL [facility] Interpretation and review of laboratory results Abnormal [facility] MCH Entitic mass (RBC) 31.4 pg 26 - 34 pg [facility] MCHC mass conc (RBC) 34.8 g/dL 31 - 37 g/dL [facility] Comment on above: Cold Agglutinin pres ent MCV Entitic volume (RBC) 90.5 fL 80 - 100 fL [facility] Nucleated RBC #/vol (Bld) 0.00 10*3/uL [facility] Nucleated RBC/100 WBC Ratio (Bld) 0.0 % [facility] Platelet mean volume Entitic volume (Bld) 10.0 fL 9 - 15.5 fL [facility] Platelets #/vol (Bld) 272 10*3/uL [facility] RBC #/vol (Bld) 2.83 10*6/uL Low [facility] WBC #/vol (Bld) 10.20 10*3/uL [facility] alth While on heparin [facility] Erythrocyte distribution width Entitic volume (RBC) 14.1 % 11.6 - 14.8 % [facility] Hematocrit Volume Fraction (Bld) 24.2 % Low 41 - 53 % [facility] Hemoglobin mass conc (Bld) 8.2 g/dL Low 13.5 - 17.5 g/dL [facility] Interpretation and review of laboratory results Abnormal [facility] MCH Entitic mass (RBC) 30.5 pg 26 - 34 pg [facility] MCHC mass conc (RBC) 33.9 g/dL 31 - 37 g/dL [facility] Comment on above: Cold Agglutinin pres ent MCV Entitic volume (RBC) 90.0 fL 80 - 100 fL [facility] Nucleated RBC #/vol (Bld) 0.00 10*3/uL [facility] Nucleated RBC/100 WBC Ratio (Bld) 0.0 % [facility] Platelet mean volume Entitic volume (Bld) 9.8 fL 9 - 15.5 fL [facility] Platelets #/vol (Bld) 246 10*3/uL [facility] RBC #/vol (Bld) 2.69 10*6/uL Low [facility] WBC #/vol (Bld) 9.04 10*3/uL [facility] Hemoglobin and Hematocriton 09-12-2018 Hematocrit Volume Fraction (Bld) 20.5 % Low 41 - 53 % [facility] Hemoglobin mass conc (Bld) 8.1 g/dL Low 13.5 - 17.5 g/dL [facility] Comment on above: Peripheral smear rev iewed manually Interpretation and review of laboratory results Abnormal [facility] PT/INRon 09-12-2018 INR Coag RelTime (PPP) 1.2 {INR} High [facility] Interpretation and review of laboratory results Abnormal [facility] Prothrombin time (PT) Coag time (PPP) 14.6 s [facility] During the induction phase of oral anticoagulation, the INR may not reflect the anticoagulation status of the patient. Therapeutic ranges for INR's are: Most clinical situations: INR 2.0-3.0 Mechanical Prosthetic Valve: INR 2.5-3.5 Critical: INR >5.0 [facility] Basic Metabolic Panelon 08-28 Anion gap molar conc 15 mmol/L 10 - 20 mmol/L [facility] Calcium mass conc 8.9 mg/dL 8.4 - 10.2 mg/dL [facility] Chloride molar conc 95 mmol/L Low 98 - 108 mmol/L [facility] Creatinine mass conc 0.65 mg/dL Low 0.8 - 1 .3 mg/dL [facility] GFR/1.73 sq M predicted among non-blacks MDRD vol rate/area (S/P/Bld) The eGFR should be used for monitoring renal function only and not for medication dosing. [facility] GFR/1.73 sq M.predicted CKD-EPI vol rate/area (S/P/Bld) 93 >=60 mL/min/1.73 m2 [facility] Glucose mass conc 114 mg/dL High 65 - 99 mg/dL [facility] HCO3 molar conc 26 mmol/L 21 - 32 mmol/L [facility] Interpretation and review of laboratory results Abnormal [facility] Potassium molar conc 4.8 mmol/L 3.5 - 5 .1 mmol/L [facility] Comment on above: Slightly Hemolyzed Sodium molar conc 131 mmol/L Low 135 - 145 mmol/L [facility] Urea nitrogen mass conc 11 mg/dL 8 - 25 mg/dL [facility] Urea nitrogen/Creatinine mass ratio 16.9 mg/mg [facility] CBCon 09-11-2018 Erythrocyte distribution width Entitic volume (RBC) 13.3 % 11.6 - 14.8 % [facility] Hematocrit Volume Fraction (Bld) 24.4 % Low 41 - 53 % [facility] Hemoglobin mass conc (Bld) 8.1 g/dL Low 13.5 - 17.5 g/dL [facility] Interpretation and review of laboratory results Abnormal [facility] MCH Entitic mass (RBC) 30.5 pg 26 - 34 pg [facility] MCHC mass conc (RBC) 33.2 g/dL 31 - 37 g/dL [facility] Comment on above: Cold Agglutinin pres ent MCV Entitic volume (RBC) 91.7 fL 80 - 100 fL [facility] Nucleated RBC #/vol (Bld) 0.00 10*3/uL [facility] Nucleated RBC/100 WBC Ratio (Bld) 0.0 % [facility] Platelet mean volume Entitic volume (Bld) 9.8 fL 9 - 15.5 fL [facility] Platelets #/vol (Bld) 249 10*3/uL [facility] RBC #/vol (Bld) 2.66 10*6/uL Low [facility] WBC #/vol (Bld) 7.28 10*3/uL [facility] PREPARE RBCon 09-11-2018 ABO and Rh group Nom (Bld) O Pos [facility] ABO and Rh group Nom (Bld) 5100 [facility] Cross Match Compatible [facility] Protein mass conc Red Blood Cells [facility] Protein mass conc [id number] [facility] Status Info Transfused [facility] Unit Number [id number] [facility] PT/INRon 09-11-2018 INR Coag RelTime (PPP) 1.2 {INR} High [facility] Interpretation and review of laboratory results Abnormal [facility] Prothrombin time (PT) Coag time (PPP) 14.7 s High [facility] During the induction phase of oral anticoagulation, the INR may not reflect the anticoagulation status of the patient. Therapeutic ranges for INR's are: Most clinical situations: INR 2.0-3.0 Mechanical Prosthetic Valve: INR 2.5-3.5 Critical: INR >5.0 [facility] Type and Screenon 09-11-2018 ABO and Rh group Nom (Bld) O Positive [facility] Blood group antibody screen Ql Negative [facility] Specimen Expires 09/14/2018 23:59 EST [facility] Basic Metabolic Panelon 08-28 Anion gap molar conc 13 mmol/L 10 - 20 mmol/L [facility] Calcium mass conc 8.9 mg/dL 8.4 - 10.2 mg/dL [facility] Chloride molar conc 99 mmol/L 98 - 108 mmol/L [facility] Creatinine mass conc 0.67 mg/dL Low 0.8 - 1 .3 mg/dL [facility] GFR/1.73 sq M predicted among non-blacks MDRD vol rate/area (S/P/Bld) The eGFR should be used for monitoring renal function only and not for medication dosing. [facility] GFR/1.73 sq M.predicted CKD-EPI vol rate/area (S/P/Bld) 91 >=60 mL/min/1.73 m2 [facility] Glucose mass conc 116 mg/dL High 65 - 99 mg/dL [facility] HCO3 molar conc 27 mmol/L 21 - 32 mmol/L [facility] Interpretation and review of laboratory results Abnormal [facility] Potassium molar conc 4.6 mmol/L 3.5 - 5 .1 mmol/L [facility] Sodium molar conc 134 mmol/L Low 135 - 145 mmol/L [facility] Urea nitrogen mass conc 12 mg/dL 8 - 25 mg/dL [facility] Urea nitrogen/Creatinine mass ratio 17.9 mg/mg [facility] CBCon 09-10-2018 Erythrocyte distribution width Entitic volume (RBC) 13.2 % 11.6 - 14.8 % [facility] Hematocrit Volume Fraction (Bld) 22.2 % Low 41 - 53 % [facility] Hemoglobin mass conc (Bld) 7.6 g/dL Low 13.5 - 17.5 g/dL [facility] Interpretation and review of laboratory results Abnormal [facility] MCH Entitic mass (RBC) 32.5 pg 26 - 34 pg [facility] MCHC mass conc (RBC) 34.2 g/dL 31 - 37 g/dL [facility] MCV Entitic volume (RBC) 94.9 fL 80 - 100 fL [facility] Nucleated RBC #/vol (Bld) 0.00 10*3/uL [facility] Nucleated RBC/100 WBC Ratio (Bld) 0.0 % [facility] Platelet mean volume Entitic volume (Bld) 9.3 fL 9 - 15.5 fL [facility] Platelets #/vol (Bld) 246 10*3/uL [facility] RBC #/vol (Bld) 2.34 10*6/uL Low [facility] WBC #/vol (Bld) 7.13 10*3/uL [facility] While on heparin [facility] Erythrocyte distribution width Entitic volume (RBC) 13.2 % 11.6 - 14.8 % [facility] Hematocrit Volume Fraction (Bld) 22.0 % Low 41 - 53 % [facility] Hemoglobin mass conc (Bld) 7.5 g/dL Low 13.5 - 17.5 g/dL [facility] Interpretation and review of laboratory results Abnormal [facility] MCH Entitic mass (RBC) 32.1 pg 26 - 34 pg [facility] MCHC mass conc (RBC) 34.1 g/dL 31 - 37 g/dL [facility] MCV Entitic volume (RBC) 94.0 fL 80 - 100 fL [facility] Nucleated RBC #/vol (Bld) 0.00 10*3/uL [facility] Nucleated RBC/100 WBC Ratio (Bld) 0.0 % [facility] Platelet mean volume Entitic volume (Bld) 9.2 fL 9 - 15.5 fL [facility] Platelets #/vol (Bld) 234 10*3/uL [facility] RBC #/vol (Bld) 2.34 10*6/uL Low [facility] WBC #/vol (Bld) 7.34 10*3/uL [facility] EKGon 09-10-2018 Ordered by an unspecified provider. [facility] PT/INRon 09-10-2018 INR Coag RelTime (PPP) 1.2 {INR} [facility] Interpretation and review of laboratory results Abnormal [facility] Prothrombin time (PT) Coag time (PPP) 14.4 s [facility] During the induction phase of oral anticoagulation, the INR may not reflect the anticoagulation status of the patient. Therapeutic ranges for INR's are: Most clinical situations: INR 2.0-3.0 Mechanical Prosthetic Valve: INR 2.5-3.5 Critical: INR >5.0 [facility] US Doppler ankle/brachial in dexon 09-10-2018 Non-Invasive Vascula r ____ Patient: SHERRY Bazan [facility] Rec#: [id number] (Age): 1940(78y) Study Date: 09/10/2018 Room#: 8506 Type: Inpatient Sex: M ____ Reading: [place] Reading: Ben Hahn MD, RPVI Referring: Esau Alejandro Binder Technician: Andre Madrid RDCS/INOCENCIO Procedure Info: [id number] Study Quality: Lower Arterial Doppler: adequate ____ [...] at 09/10/2018 17:30:46 by: Ben Hahn MD, NATANAEL [facility] Interface, Rad In Heartlab Xper Echopacs - 09/10/2018 5:37 PM EST Non-Invasive Vascular ____ Patient: SHERRY Bazan [facility] Rec#: [id number] (Age): 1940(78y) Study Date: 09/10/2018 Room#: 8506 Type: Inpatient Sex: M ____ Reading: [place] Reading: Ben Hahn MD, JEOVANYVI Referring: Esau Alejandro Binder Technician: Andre Madrid RDCS/RVT Procedure Info: [id number] Study Quality: Lower Arterial Doppler: adequate ____ [...] by: Ben Hahn MD, RPVI [facility] Basic Metabolic Panelon 08-28 Anion gap molar conc 12 mmol/L 10 - 20 mmol/L [facility] Calcium mass conc 8.9 mg/dL 8.4 - 10.2 mg/dL [facility] Chloride molar conc 99 mmol/L 98 - 108 mmol/L [facility] Creatinine mass conc 0.71 mg/dL Low 0.8 - 1 .3 mg/dL [facility] GFR/1.73 sq M predicted among non-blacks MDRD vol rate/area (S/P/Bld) The eGFR should be used for monitoring renal function only and not for medication dosing. [facility] GFR/1.73 sq M.predicted CKD-EPI vol rate/area (S/P/Bld) 89 >=60 mL/min/1.73 m2 [facility] Glucose mass conc 111 mg/dL High 65 - 99 mg/dL [facility] HCO3 molar conc 28 mmol/L 21 - 32 mmol/L [facility] Interpretation and review of laboratory results Abnormal [facility] Potassium molar conc 4.3 mmol/L 3.5 - 5 .1 mmol/L [facility] Sodium molar conc 135 mmol/L 135 - 145 mmol/L [facility] Urea nitrogen mass conc 13 mg/dL 8 - 25 mg/dL [facility] Urea nitrogen/Creatinine mass ratio 18.3 mg/mg [facility] CBCon 09-09-2018 Erythrocyte distribution width Entitic volume (RBC) 13.2 % 11.6 - 14.8 % [facility] Hematocrit Volume Fraction (Bld) 23.0 % Low 41 - 53 % [facility] Hemoglobin mass conc (Bld) 7.7 g/dL Low 13.5 - 17.5 g/dL [facility] Comment on above: Cold Agglutinin pres ent Interpretation and review of laboratory results Abnormal [facility] MCH Entitic mass (RBC) 30.4 pg 26 - 34 pg [facility] MCHC mass conc (RBC) 33.5 g/dL 31 - 37 g/dL [facility] MCV Entitic volume (RBC) 90.9 fL 80 - 100 fL [facility] Nucleated RBC #/vol (Bld) 0.00 10*3/uL [facility] Nucleated RBC/100 WBC Ratio (Bld) 0.0 % [facility] Platelet mean volume Entitic volume (Bld) 9.4 fL 9 - 15.5 fL [facility] Platelets #/vol (Bld) 207 10*3/uL [facility] RBC #/vol (Bld) 2.53 10*6/uL Low [facility] WBC #/vol (Bld) 6.48 10*3/uL [facility] Hemoglobin and Hematocriton 09-09-2018 Hematocrit Volume Fraction (Bld) 22.8 % Low 41 - 53 % [facility] Hemoglobin mass conc (Bld) 8.0 g/dL Low 13.5 - 17.5 g/dL [facility] Interpretation and review of laboratory results Abnormal [facility] Hematocrit Volume Fraction (Bld) 22.9 % Low 41 - 53 % [facility] Hemoglobin mass conc (Bld) 7.7 g/dL Low 13.5 - 17.5 g/dL [facility] Interpretation and review of laboratory results Abnormal [facility] PT/INRon 09-09-2018 INR Coag RelTime (PPP) 1.2 {INR} High [facility] Interpretation and review of laboratory results Abnormal [facility] Prothrombin time (PT) Coag time (PPP) 15.1 s [facility] During the induction phase of oral anticoagulation, the INR may not reflect the anticoagulation status of the patient. Therapeutic ranges for INR's are: Most clinical situations: INR 2.0-3.0 Mechanical Prosthetic Valve: INR 2.5-3.5 Critical: INR >5.0 [facility] Basic Metabolic Panelon 08-28 Anion gap molar conc 16 mmol/L 10 - 20 mmol/L [facility] Calcium mass conc 9.0 mg/dL 8.4 - 10.2 mg/dL [facility] Chloride molar conc 99 mmol/L 98 - 108 mmol/L [facility] Creatinine mass conc 0.56 mg/dL Low 0.8 - 1 .3 mg/dL [facility] GFR/1.73 sq M predicted among non-blacks MDRD vol rate/area (S/P/Bld) The eGFR should be used for monitoring renal function only and not for medication dosing. [facility] GFR/1.73 sq M.predicted CKD-EPI vol rate/area (S/P/Bld) 98 >=60 mL/min/1.73 m2 [facility] Glucose mass conc 189 mg/dL High 65 - 99 mg/dL [facility] HCO3 molar conc 23 mmol/L 21 - 32 mmol/L [facility] [facility] Interpretation and review of laboratory results Abnormal [facility] Potassium molar conc 4.5 mmol/L 3.5 - 5 .1 mmol/L [facility] Sodium molar conc 133 mmol/L Low 135 - 145 mmol/L [facility] Urea nitrogen mass conc 8 mg/dL 8 - 25 mg/dL [facility] Urea nitrogen/Creatinine mass ratio 14.3 mg/mg [facility] CBCon 09-08-2018 Erythrocyte distribution width Entitic volume (RBC) 12.9 % 11.6 - 14.8 % [facility] Hematocrit Volume Fraction (Bld) 29.9 % Low 41 - 53 % [facility] Hemoglobin mass conc (Bld) 10.0 g/dL Low 13.5 - 17.5 g/dL [facility] Interpretation and review of laboratory results Abnormal [facility] MCH Entitic mass (RBC) 30.3 pg 26 - 34 pg [facility] MCHC mass conc (RBC) 33.4 g/dL 31 - 37 g/dL [facility] Comment on above: Cold Agglutinin pres ent MCV Entitic volume (RBC) 90.6 fL 80 - 100 fL [facility] Nucleated RBC #/vol (Bld) 0.00 10*3/uL [facility] Nucleated RBC/100 WBC Ratio (Bld) 0.0 % [facility] Platelet mean volume Entitic volume (Bld) 10.5 fL 9 - 15.5 fL [facility] Platelets #/vol (Bld) 209 10*3/uL [facility] RBC #/vol (Bld) 3.30 10*6/uL [facility] WBC #/vol (Bld) 11.23 10*3/uL [facility] alth PT/INRon 09-08-2018 INR Coag RelTime (PPP) 1.2 {INR} [facility] Interpretation and review of laboratory results Abnormal [facility] Prothrombin time (PT) Coag time (PPP) 14.9 s [facility] During the induction phase of oral anticoagulation, the INR may not reflect the anticoagulation status of the patient. Therapeutic ranges for INR's are: Most clinical situations: INR 2.0-3.0 Mechanical Prosthetic Valve: INR 2.5-3.5 Critical: INR >5.0 [facility] XR Fluoroscopy Timeon 2018 This is an auto finalized result. Please refer to patient chart for further information. [facility] XR OR Angio Addon 09-08-2018 This is an auto finalized result. Please refer to patient chart for further information. [facility] APTTon 09-07-2018 aPTT Coag time (Bld) 74 s High [facility] aPTT Coag time (Bld) Therapeutic range f or APTT's is 68 - 104 seconds [facility] Interpretation and review of laboratory results Abnormal [facility] aPTT Coag time (Bld) 47 s High [facility] aPTT Coag time (Bld) Therapeutic range f or APTT's is 68 - 104 seconds [facility] aPTT Coag time (Bld) 38 s High [facility] aPTT Coag time (Bld) Results checked. Therapeutic range for APTT's is 68 - 104 seconds [facility] Interpretation and review of laboratory results Abnormal [facility] Basic Metabolic Panelon 08-28 Anion gap molar conc 15 mmol/L 10 - 20 mmol/L [facility] Calcium mass conc 9.4 mg/dL 8.4 - 10.2 mg/dL [facility] Chloride molar conc 99 mmol/L 98 - 108 mmol/L [facility] Creatinine mass conc 0.69 mg/dL Low 0.8 - 1 .3 mg/dL [facility] GFR/1.73 sq M predicted among non-blacks MDRD vol rate/area (S/P/Bld) The eGFR should be used for monitoring renal function only and not for medication dosing. [facility] GFR/1.73 sq M.predicted CKD-EPI vol rate/area (S/P/Bld) 90 >=60 mL/min/1.73 m2 [facility] Glucose mass conc 110 mg/dL High 65 - 99 mg/dL [facility] HCO3 molar conc 25 mmol/L 21 - 32 mmol/L [facility] Interpretation and review of laboratory results Abnormal [facility] Potassium molar conc 4.0 mmol/L 3.5 - 5 .1 mmol/L [facility] Sodium molar conc 135 mmol/L 135 - 145 mmol/L [facility] Urea nitrogen mass conc 9 mg/dL 8 - 25 mg/dL [facility] Urea nitrogen/Creatinine mass ratio 13.0 mg/mg [facility] CBCon 09-07-2018 Erythrocyte distribution width Entitic volume (RBC) 12.9 % 11.6 - 14.8 % [facility] Hematocrit Volume Fraction (Bld) 31.6 % Low 41 - 53 % [facility] Hemoglobin mass conc (Bld) 10.8 g/dL Low 13.5 - 17.5 g/dL [facility] Interpretation and review of laboratory results Abnormal [facility] MCH Entitic mass (RBC) 30.9 pg 26 - 34 pg [facility] MCHC mass conc (RBC) 34.2 g/dL 31 - 37 g/dL [facility] Comment on above: Cold Agglutinin pres ent MCV Entitic volume (RBC) 90.3 fL 80 - 100 fL [facility] Nucleated RBC #/vol (Bld) 0.00 10*3/uL [facility] Nucleated RBC/100 WBC Ratio (Bld) 0.0 % [facility] Platelet mean volume Entitic volume (Bld) 10.1 fL 9 - 15.5 fL [facility] Platelets #/vol (Bld) 212 10*3/uL [facility] RBC #/vol (Bld) 3.50 10*6/uL Low [facility] WBC #/vol (Bld) 5.93 10*3/uL [facility] Otheron 09-07-2018 Interpretation and review of laboratory results Abnormal [facility] PT/INRon 09-07-2018 INR Coag RelTime (PPP) 1.2 {INR} High [facility] Prothrombin time (PT) Coag time (PPP) 14.7 s [facility] During the induction phase of oral anticoagulation, the INR may not reflect the anticoagulation status of the patient. Therapeutic ranges for INR's are: Most clinical situations: INR 2.0-3.0 Mechanical Prosthetic Valve: INR 2.5-3.5 Critical: INR >5.0 [facility] XR Chest 1 Viewon 09-07-2018 Interface, Rad In Baljit ji Speechq - 09/07/2018 9:53 AM EST EXAMINATION: AP CHEST HISTORY: Hypoxia. COMPARISON: 08/01/2018 from [facility]. 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 Coronary artery stents are visualized. Minimal linear scarring at the lung bases, unchanged. No pneumothorax. No definite pleural effusion no new opacities. IMPRESSION: Stable chest. No acute disease. [employer] Workstation ID: [id number] [facility] EXAMINATION: AP CHES T HISTORY: Hypoxia. COMPARISON: 08/01/2018 from [facility]. 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 Coronary artery stents are visualized. Minimal linear scarring at the lung bases, unchanged. No pneumothorax. No definite pleural effusion no new opacities. [facility] Stable chest. No acu te disease. [employer] Workstation ID: [id number] [facility] ABORH VERIFICATIONon 01-10-2 019 ABO and Rh group Nom (Bld) O Positive [facility] ABO and Rh group Nom (Bld) ABO/Rh Verification [facility] Patient's ABO/Rh is verified. [facility] Basic Metabolic Panelon 08-28 Anion gap molar conc 13 mmol/L 10 - 20 mmol/L [facility] Calcium mass conc 9.5 mg/dL 8.4 - 10.2 mg/dL [facility] Chloride molar conc 101 mmol/L 98 - 108 mmol/L [facility] Creatinine mass conc 0.68 mg/dL Low 0.8 - 1 .3 mg/dL [facility] GFR/1.73 sq M predicted among non-blacks MDRD vol rate/area (S/P/Bld) The eGFR should be used for monitoring renal function only and not for medication dosing. [facility] GFR/1.73 sq M.predicted CKD-EPI vol rate/area (S/P/Bld) 91 >=60 mL/min/1.73 m2 [facility] Glucose mass conc 98 mg/dL 65 - 99 mg/dL [facility] HCO3 molar conc 27 mmol/L 21 - 32 mmol/L [facility] Interpretation and review of laboratory results Abnormal [facility] Potassium molar conc 4.2 mmol/L 3.5 - 5 .1 mmol/L [facility] Sodium molar conc 137 mmol/L 135 - 145 mmol/L [facility] Urea nitrogen mass conc 9 mg/dL 8 - 25 mg/dL [facility] Urea nitrogen/Creatinine mass ratio 13.2 mg/mg [facility] CBCon 09-06-2018 Erythrocyte distribution width Entitic volume (RBC) 13.1 % 11.6 - 14.8 % [facility] Hematocrit Volume Fraction (Bld) 30.7 % Low 41 - 53 % [facility] Hemoglobin mass conc (Bld) 10.4 g/dL Low 13.5 - 17.5 g/dL [facility] Interpretation and review of laboratory results Abnormal [facility] MCH Entitic mass (RBC) 31.0 pg 26 - 34 pg [facility] MCHC mass conc (RBC) 33.9 g/dL 31 - 37 g/dL [facility] Comment on above: Cold Agglutinin pres ent MCV Entitic volume (RBC) 91.6 fL 80 - 100 fL [facility] Nucleated RBC #/vol (Bld) 0.00 10*3/uL [facility] Nucleated RBC/100 WBC Ratio (Bld) 0.0 % [facility] Platelet mean volume Entitic volume (Bld) 9.9 fL 9 - 15.5 fL [facility] Platelets #/vol (Bld) 209 10*3/uL [facility] RBC #/vol (Bld) 3.35 10*6/uL Low [facility] WBC #/vol (Bld) 6.34 10*3/uL [facility] While [facility] Erythrocyte distribution width Entitic volume (RBC) 12.6 % 11.6 - 14.8 % [facility] Hematocrit Volume Fraction (Bld) 32.0 % Low 41 - 53 % [facility] Hemoglobin mass conc (Bld) 10.7 g/dL Low 13.5 - 17.5 g/dL [facility] Comment on above: Peripheral smear rev iewed manually Interpretation and review of laboratory results Abnormal [facility] MCH Entitic mass (RBC) 29.9 pg 26 - 34 pg [facility] MCHC mass conc (RBC) 33.4 g/dL 31 - 37 g/dL [facility] Comment on above: Cold Agglutinin pres ent MCV Entitic volume (RBC) 89.4 fL 80 - 100 fL [facility] Nucleated RBC #/vol (Bld) 0.00 10*3/uL [facility] Nucleated RBC/100 WBC Ratio (Bld) 0.0 % [facility] Platelet mean volume Entitic volume (Bld) 9.6 fL 9 - 15.5 fL [facility] Platelets #/vol (Bld) 232 10*3/uL [facility] RBC #/vol (Bld) 3.58 10*6/uL Low [facility] WBC #/vol (Bld) 7.03 10*3/uL [facility] Saphenous vein chace casillas 09-06-2018 Interface, Rad In [facility] - 09/06/2018 11:52 AM EST Non-Invasive Vascular ____ Patient: SHERRY TRISTIN Jones Rec#: [id number] (Age): 1940(78y) Study Date: 09/06/2018 Room#: 3386 Type: Inpatient Sex: M ____ Reading: Manuel Leonard MD, RPVI, RVT Referring: ARISTEO Binder Technician: Conrad Jeffers RDCS, RVT Procedure Info: [id number] Study Quality: Lower Vein Map: limited Study [...] at 09/06/2018 11:49:41 by: Manuel Leonard MD, RPVI, INOCENCIO [facility] Non-Invasive Vascula r ____ Patient: SHERRY TRISTIN E [facility] Rec#: [id number] (Age): 1940(78y) Study Date: 09/06/2018 Room#: 3386 Type: Inpatient Sex: M ____ Reading: Manuel Leonard MD, RPVI, INOCENCIO Referring: ARISTEO Binder Technician: Conrad Jeffers RDCS, RVT Procedure Info: [id number] Study Quality: Lower Vein Map: limited Study [...] at 09/06/2018 11:49:41 by: Manuel Leonard MD, RPVI, RVT [facility] Type and Screenon 09-06-2018 ABO and Rh group Nom (Bld) O Positive [facility] Blood group antibody screen Ql Negative [facility] Specimen Expires 09/09/2018 23:59 EST [facility] APTTon 09-05-2018 aPTT Coag time (Bld) Therapeutic range f or APTT's is 68 - 104 seconds [facility] aPTT Coag time (Bld) 59 s [facility] Interpretation and review of laboratory results Abnormal [facility] aPTT Coag time (Bld) 50 s [facility] aPTT Coag time (Bld) Therapeutic range f or APTT's is 68 - 104 seconds [facility] Basic Metabolic Panelon Anion gap molar conc 14 mmol/L 10 - 20 mmol/L [facility] Calcium mass conc 9.3 mg/dL 8.4 - 10.2 mg/dL [facility] Chloride molar conc 102 mmol/L 98 - 108 mmol/L [facility] Creatinine mass conc 0.65 mg/dL Low 0.8 - 1 .3 mg/dL [facility] GFR/1.73 sq M predicted among non-blacks MDRD vol rate/area (S/P/Bld) The eGFR should be used for monitoring renal function only and not for medication dosing. [facility] GFR/1.73 sq M.predicted CKD-EPI vol rate/area (S/P/Bld) 93 >=60 mL/min/1.73 m2 [facility] Glucose mass conc 91 mg/dL 65 - 99 mg/dL [facility] HCO3 molar conc 25 mmol/L 21 - 32 mmol/L [facility] Potassium molar conc 3.9 mmol/L 3.5 - 5 .1 mmol/L [facility] Sodium molar conc 137 mmol/L 135 - 145 mmol/L [facility] Urea nitrogen mass conc 6 mg/dL Low 8 - 25 mg/dL [facility] Urea nitrogen/Creatinine mass ratio 9.2 mg/mg Low [facility] CARDIAC CATHETERIZATIONon Interface, Rad In [facility] - 09/05/2018 4:14 PM EST Patient Name: TIRSTIN POWELL Date of : 1940 Procedure Date: 09/05/2018 Physician(s): Ben Hahn MD Cath #: [id number] Ref. 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 Dyslipidemia: Yes Hypertension: Yes Pre-OP Diagnosis/Indication: [place] Class/Limb Ischemia: 4 - Ischemic rest pain [...] amputation COMMENTS: No Complications ____ Equipment: Sheath(s) [employer] 5F 10CM PINNACLE SHEATH TIME PLUS Q 6F 45CM .038 FLEXOR CHECKFLO ANSEL1 SHEATH Wire(s) [employer] .035 X 150CM FIXED J WIRE Catheter(s) [employer] 5F MP TEMPO AQUA CATHETER Other TIME PLUS Q .035 CXI ANGLED SUPPORT CATHETERS SHER VASCULAR 6F PROGLIDE CLOSURE Peripheral Angiography: Access site: Femoral Right Retrograde arterial with ultrasound guidance Non Selective: Aorta with ilio-fem runoff Selective: Tibioperoneal artery, retrograde - left See Nursing Notes for further details Signed By Ben Hahn MD On 09/05/2018 3:50:45 PM Ben Hahn MD ____ [facility] Patient Name: TRISTIN POWELL Date of : 1940 Procedure Date: 09/05/2018 Physician(s): Ben Hahn MD Cath #: [id number] Ref. 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 Dyslipidemia: Yes Hypertension: Yes Pre-OP Diagnosis/Indication: [place] Class/Limb Ischemia: 4 - Ischemic rest pain [...] amputation COMMENTS: No Complications ____ Equipment: Sheath(s) [employer] 5F 10CM PINNACLE SHEATH TIME PLUS Q 6F 45CM .038 FLEXOR CHECKFLO ANSEL1 SHEATH Wire(s) [employer] .035 X 150CM FIXED J WIRE Catheter(s) [employer] 5F MP TEMPO AQUA CATHETER Other TIME PLUS Q .035 CXI ANGLED SUPPORT CATHETERS SHER VASCULAR 6F PROGLIDE CLOSURE Peripheral Angiography: Access site: Femoral Right Retrograde arterial with ultrasound guidance Non Selective: Aorta with ilio-fem runoff Selective: Tibioperoneal artery, retrograde - left See Nursing Notes for further details Signed By Ben Hahn MD On 09/05/2018 3:50:45 PM Ben Hahn MD ____ [facility] CBCon 09-05-2018 Erythrocyte distribution width Entitic volume (RBC) 12.8 % 11.6 - 14.8 % [facility] Hematocrit Volume Fraction (Bld) 31.8 % Low 41 - 53 % [facility] Hemoglobin mass conc (Bld) 10.7 g/dL Low 13.5 - 17.5 g/dL [facility] Interpretation and review of laboratory results Abnormal [facility] MCH Entitic mass (RBC) 30.5 pg 26 - 34 pg Oh [facility] MCHC mass conc (RBC) 33.6 g/dL 31 - 37 g/dL [facility] MCV Entitic volume (RBC) 90.6 fL 80 - 100 fL [facility] Nucleated RBC #/vol (Bld) 0.00 10*3/uL [facility] Nucleated RBC/100 WBC Ratio (Bld) 0.0 % [facility] Platelet mean volume Entitic volume (Bld) 9.2 fL 9 - 15.5 fL [facility] Platelets #/vol (Bld) 224 10*3/uL [facility] RBC #/vol (Bld) 3.51 10*6/uL [facility] WBC #/vol (Bld) 5.56 10*3/uL [facility] ECG 12-LEADon 09-05-2018 Atrial Rate 88 BPM [facility] P [place] 48 degrees [facility] P-R Interval 134 ms [facility] Q-T Interval 392 ms [facility] QRS Duration 98 ms [facility] QTC Calculation (Bezet) 474 ms [facility] R [place] 50 degrees [facility] T [place] 61 degrees [facility] Ventricular Rate 88 BPM [facility] Normal sinus rhythm Nonspecific ST and T wave abnormality Abnormal ECG Confirmed by CHAYO TIDWELL MD ([id number]) on 09/05/2018 7:19:56 PM [facility] Atrial Rate 94 BPM [facility] P [place] 0 degrees [facility] P-R Interval 166 ms [facility] Q-T Interval 386 ms [facility] QRS Duration 94 ms [facility] QTC Calculation (Bezet) 482 ms [facility] R [place] 41 degrees [facility] T [place] 46 degrees [facility] Ventricular Rate 94 BPM [facility] Normal sinus rhythm Prolonged QT Abnormal ECG Confirmed by CHAYO TIDWELL MD ([id number]) on 09/05/2018 6:55:30 PM [facility] Otheron 09-05-2018 Interpretation and review of laboratory results Abnormal [facility] Ultrasound duplex arterial l eg lefton 09-05-2018 Non-Invasive Vascula r ____ Patient: SHERRY Bazan [facility] Rec#: [id number] (Age): 1940(78y) Study Date: 09/05/2018 Room#: G93 Type: Inpatient Sex: M ____ Reading: Pierce Moreau DO, RPVI Referring: LEVY Binder Technician: Rima Celestin RDCS, RVT Binder Technician: Deena Pelayo RDCS RVT Procedure Info: [id number] Study Quality: Lower Arterial Duplex: adequate ____ [...] PSV Name Value Units EIA 83.2 cm/sec INSPECTOR MOTOR VEHICLES 95.6 cm/sec Profunda 85.5 cm/sec SFA - prox -25 cm/sec SFA - mid -67.2 cm/sec SFA - dist 58.2 cm/sec Popliteal - dist 0 cm/sec NEWS CONTENT SPECIALIST 6.8 cm/sec Pre Stenosis #1 9.3 cm/sec Within Stenosis #1 67.2 cm/sec Distal Stenois #1 58.2 cm/sec Left Stent #1 Name Value Units Pre 58.2 cm/sec Orig/Prox 0 cm/sec Mid 0 cm/sec Dist 0 cm/sec Distal To 6.8 cm/sec Electronically signed at 09/05/2018 11:55:51 by: Pierce Moreau DO, RPVI [facility] In [facility] - 09/05/2018 12:10 PM EST Non-Invasive Vascular ____ Patient: SHERRY Bazan [facility] Rec#: [id number] (Age): 1940(78y) Study Date: 09/05/2018 Room#: G93 Type: Inpatient Sex: M ____ Reading: Pierce Moreau DO, RPVI Referring: LEVY Binder Technician: Rima Celestin RD, RVT Binder Technician: Deena Pelayo RDCS RVT Procedure Info: [id number] Study Quality: Lower Arterial Duplex: adequate ____ [...] PSV Name Value Units EIA 83.2 cm/sec INSPECTOR MOTOR VEHICLES 95.6 cm/sec Profunda 85.5 cm/sec SFA - prox -25 cm/sec SFA - mid -67.2 cm/sec SFA - dist 58.2 cm/sec Popliteal - dist 0 cm/sec NEWS CONTENT SPECIALIST 6.8 cm/sec Pre Stenosis #1 9.3 cm/sec Within Stenosis #1 67.2 cm/sec Distal Stenois #1 58.2 cm/sec Left Stent #1 Name Value Units Pre 58.2 cm/sec Orig/Prox 0 cm/sec Mid 0 cm/sec Dist 0 cm/sec Distal To 6.8 cm/sec Electronically signed at 09/05/2018 11:55:51 by: Pierce Moreau, , NATANAEL [facility] APTTon 09-04-2018 aPTT Coag time (Bld) 59 s High [facility] aPTT Coag time (Bld) Therapeutic range f or APTT's is 68 - 104 seconds [facility] Interpretation and review of laboratory results Abnormal [facility] CBCon 09-04-2018 Erythrocyte distribution width Entitic volume (RBC) 12.8 % 11.6 - 14.8 % [facility] Hematocrit Volume Fraction (Bld) 33.3 % Low 41 - 53 % [facility] Hemoglobin mass conc (Bld) 11.2 g/dL Low 13.5 - 17.5 g/dL [facility] Interpretation and review of laboratory results Abnormal [facility] MCH Entitic mass (RBC) 30.2 pg 26 - 34 pg Oh [facility] MCHC mass conc (RBC) 33.6 g/dL 31 - 37 g/dL [facility] Comment on above: Cold Agglutinin pres ent MCV Entitic volume (RBC) 89.8 fL 80 - 100 fL [facility] Nucleated RBC #/vol (Bld) 0.00 10*3/uL [facility] Nucleated RBC/100 WBC Ratio (Bld) 0.0 % [facility] Platelet mean volume Entitic volume (Bld) 10.1 fL 9 - 15.5 fL [facility] Platelets #/vol (Bld) 222 10*3/uL [facility] Comment on above: Peripheral smear rev iewed manually RBC #/vol (Bld) 3.71 10*6/uL Low [facility] WBC #/vol (Bld) 6.36 10*3/uL [facility] While on heparin [facility] Otheron 09-04-2018 Extra Tube Hold for add-ons. [facility] Comment on above: Auto resulted. XR COMPARISON IMPORTon 09-04 This order has been auto-finalized and does not contain a result. [facility] Vital Signs Date Time Vital Sign Value Performing Clinician Facility 04-23-2025 14:36-0400 Diastolic blood pressure 72 mm[Hg] Mohsen Sarabia MD Work Phone: [facility] 04-23-2025 14:36-0400 Heart rate 64 /min Mohsen Sarabia MD Work Phone: [facility] 04-23-2025 14:36-0400 Systolic blood pressure 162 mm[Hg] Mohsen Sarabia MD Work Phone: [facility] 04-23-2025 14:30-0400 Body height 188 cm Mohsen Sarabia MD Work Phone: [facility] 04-23-2025 14:30-0400 Body mass index (BMI) [Ratio] 31.46 kg/m2 Mohsen Sarabia MD [facility] [facility] 04-23-2025 14:30-0400 Body weight 111.13 kg Mohsen Sarabia MD Work Phone: [facility] 04-23-2025 14:30-0400 Respiratory rate 16 /min Mohsen Sarabia MD Work Phone: [facility] 04-23-2025 14:30-0400 SaO2% (BldA) [Mass fraction] 97 % Mohsen Sarabia MD Work Phone: [facility] 04-14-2025 13:27-0400 Body height 188 cm Flash Lovelace MD Work Phone: [facility] 04-14-2025 13:27-0400 Body mass index (BMI) [Ratio] 30.94 kg/m2 Flash Lovelace MD Work Phone: [facility] 04-14-2025 13:27-0400 Body weight 109.32 kg Flash Lovelace MD Work Phone: [facility] 04-14-2025 13:27-0400 Diastolic blood pressure 62 mm[Hg] Flash Lovelace MD Work Phone: [facility] 04-14-2025 13:27-0400 Heart rate 70 /min Flash Lovelace MD Work Phone: [facility] 04-14-2025 13:27-0400 SaO2% (BldA) [Mass fraction] 96 % Flash Lovelace MD Work Phone: [facility] 04-14-2025 13:27-0400 Systolic blood pressure 132 mm[Hg] Flash Lovelace MD Work Phone: [facility] 04-08-2025 11:29-0400 Body height 188 cm Zoë Hemmer PA Work Phone: [facility] 04-08-2025 11:29-0400 Body mass index (BMI) [Ratio] 31.35 kg/m2 Zoë Hemmer PA Work Phone: [facility] 04-08-2025 11:29-0400 Body weight 110.77 kg Zoë Hemmer PA Work Phone: [facility] 04-08-2025 11:29-0400 Diastolic blood pressure 68 mm[Hg] Zoë Hemmer PA Work Phone: [facility] 04-08-2025 11:29-0400 Heart rate 70 /min Zoë Hemmer PA Work Phone: [facility] 04-08-2025 11:29-0400 Respiratory rate 18 /min Zoë Hemmer PA Work Phone: [facility] 04-08-2025 11:29-0400 SaO2% (BldA) [Mass fraction] 98 % Zoë Hemmer PA Work Phone: [facility] 04-08-2025 11:29-0400 Systolic blood pressure 146 mm[Hg] Zoë Hemmer PA Work Phone: [facility] 04-02-2025 11:54-0400 Body height 188 cm Mohsen Sarabia MD Work Phone: [facility] 04-02-2025 11:54-0400 Body mass index (BMI) [Ratio] 31.07 kg/m2 Mohsen Sarabia MD Work Phone: [facility] 04-02-2025 11:54-0400 Body weight 109.77 kg Mohsen Sarabia MD Work Phone: [facility] 04-02-2025 11:54-0400 Diastolic blood pressure 65 mm[Hg] Mohsen Sarabia MD Work Phone: [facility] 04-02-2025 11:54-0400 Heart rate 68 /min Mohsen Sarabia MD Work Phone: [facility] 04-02-2025 11:54-0400 Respiratory rate 12 /min Mohsen Sarabia MD Work Phone: [facility] 04-02-2025 11:54-0400 SaO2% (BldA) [Mass fraction] 92 % Mohsen Sarabia MD Work Phone: [facility] 04-02-2025 11:54-0400 Systolic blood pressure 121 mm[Hg] Mohsen Sarabia MD Work Phone: [facility] 03-31-2025 13:24-0400 Body height 188 cm Flash Lovelace MD Work Phone: [facility] 03-31-2025 13:24-0400 Body mass index (BMI) [Ratio] 31.2 kg/m2 Flash Lovelace MD Work Phone: [facility] 03-31-2025 13:24-0400 Body weight 110.22 kg Flash Lovelace MD Work Phone: [facility] 03-31-2025 13:24-0400 Diastolic blood pressure 58 mm[Hg] Flash Lovelace MD Work Phone: [facility] 03-31-2025 13:24-0400 Heart rate 72 /min Flash Lovelace MD Work Phone: [facility] 03-31-2025 13:24-0400 SaO2% (BldA) [Mass fraction] 96 % Flash Lovelace MD Work Phone: [facility] 03-31-2025 13:24-0400 Systolic blood pressure 128 mm[Hg] Flash Lovelace MD Work Phone: [facility] 03-21-2025 14:58-0400 Body temperature 98.1 [degF] Uri Edgar DO Work Phone: [facility] 03-21-2025 14:58-0400 Diastolic blood pressure 73 mm[Hg] Uri Edgar DO Work Phone: [facility] 03-21-2025 14:58-0400 Heart rate 88 /min Uri Edgar DO Work Phone: [facility] 03-21-2025 14:58-0400 Respiratory rate 15 /min Uri Edgar DO Work Phone: [facility] 03-21-2025 14:58-0400 SaO2% (BldA) [Mass fraction] 96 % Uri Edgar DO Work Phone: [facility] 03-21-2025 14:58-0400 Systolic blood pressure 139 mm[Hg] Uri Edgar DO Work Phone: [facility] 03-14-2025 20:34-0400 Body height 188 cm Uri Edgar DO Work Phone: [facility] 03-14-2025 20:34-0400 Body mass index (BMI) [Ratio] 31.19 kg/m2 Uri Edgar DO Work Phone: [facility] 03-14-2025 20:34-0400 Body weight 110.2 kg Uri Edgar DO Work Phone: [facility] 03-14-2025 09:55-0400 Diastolic blood pressure 90 mm[Hg] Ken Johnson [employer]ON SIGN MECH[employer]IC Work Phone: [facility] 03-14-2025 09:55-0400 Systolic blood pressure 147 mm[Hg] Kenalexis Johnson [employer]ON S[employer] MECHANIC Work Phone: [facility] 03-14-2025 09:52-0400 Body height 185.4 cm Ken Johnson [employer]ON S[employer] MECH[employer]IC Work Phone: [facility] 03-14-2025 09:52-0400 Body mass index (BMI) [Ratio] 32.98 kg/m2 Ken Johnson [employer]ON S[employer] MECHANIC Work Phone: [facility] 03-14-2025 09:52-0400 Body weight 113.4 kg Kenalexis Buckleyover NEON SIGN MECHANIC Work Phone: [facility] 03-14-2025 09:52-0400 Heart rate 81 /min Kenalexis Buckleyover NEON SIGN MECHANIC Work Phone: [facility] 03-14-2025 09:52-0400 SaO2% (BldA) [Mass fraction] 93 % Ken Johnson NEON S[employer] MECHANIC Work Phone: [facility] 03-12-2025 18:50-0400 Diastolic blood pressure 83 mm[Hg] Flash Lovelace MD Work Phone: [facility] 03-12-2025 18:50-0400 Heart rate 83 /min Flash Lovelace MD Work Phone: [facility] 03-12-2025 18:50-0400 Respiratory rate 16 /min Flash Lovelace MD Work Phone: [facility] 03-12-2025 18:50-0400 SaO2% (BldA) [Mass fraction] 95 % Flash Lovelace MD Work Phone: [facility] 03-12-2025 18:50-0400 Systolic blood pressure 171 mm[Hg] Flash Lovelace MD Work Phone: [facility] 03-12-2025 17:05-0400 Inhaled oxygen flow rate 6 L/min Flash Lovelace MD Work Phone: [facility] 03-12-2025 13:05-0400 Body height 187.96 cm Flash Lovelace MD Work Phone: [facility] 03-12-2025 13:05-0400 Body temperature 98.1 [degF] Flash Lovelace MD Work Phone: [facility] 03-12-2025 13:05-0400 Body weight 113.39 kg Flash Lovelace MD Work Phone: [facility] 03-11-2025 11:34-0400 Body height 187.96 cm Flash Lovelace MD Work Phone: [facility] 03-11-2025 11:34-0400 Body mass index (BMI) [Ratio] 32.1 kg/m2 Flash Lovelace MD Work Phone: [facility] 03-11-2025 11:34-0400 Body temperature 98 [degF] Flash Lovelace MD Work Phone: [facility] 03-11-2025 11:34-0400 Body weight 113.39 kg Flash Lovelace MD Work Phone: [facility] 03-11-2025 11:34-0400 Diastolic blood pressure 72 mm[Hg] Flash Lovelace MD Work Phone: [facility] 03-11-2025 11:34-0400 Heart rate 77 /min Flash Lovelace MD Work Phone: [facility] 03-11-2025 11:34-0400 SaO2% (BldA) [Mass fraction] 98 % Flash Lovelace MD Work Phone: [facility] 03-11-2025 11:34-0400 Systolic blood pressure 160 mm[Hg] Flash Lovelace MD Work Phone: [facility] 01-09-2025 10:33-0400 Body height 188 cm Bhaskar Wilson [employer]RUB [employer]OWER Work Phone: [facility] 01-09-2025 10:33-0400 Body mass index (BMI) [Ratio] 32.23 kg/m2 Bhaskar Wilson [employer] Work Phone: [facility] 01-09-2025 10:33-0400 Body weight 113.85 kg Bhaskar Wilson [employer] Work Phone: [facility] 01-09-2025 10:33-0400 Diastolic blood pressure 74 mm[Hg] Bhaskar Wilson [employer] Work Phone: [facility] 01-09-2025 10:33-0400 Heart rate 83 /min Bhaskar Wilson [employer] Work Phone: [facility] 01-09-2025 10:33-0400 Respiratory rate 17 /min Bhaskar Wilson [employer] Work Phone: [facility] 01-09-2025 10:33-0400 SaO2% (BldA) [Mass fraction] 96 % Bhaskar Wilson [employer] Work Phone: [facility] 01-09-2025 10:33-0400 Systolic blood pressure 128 mm[Hg] Bhaskar Wilson [employer] Work Phone: [facility] 08-12-2024 13:21-0500 Body height 188 cm Flash Lovelace MD Work Phone: [facility] 08-12-2024 13:21-0500 Body mass index (BMI) [Ratio] 33 kg/m2 Flash Lovelace MD Work Phone: [facility] 08-12-2024 13:21-0500 Body weight 116.57 kg Flash Lovelace MD Work Phone: [facility] 08-12-2024 13:21-0500 Diastolic blood pressure 78 mm[Hg] Flash Lovelace MD Work Phone: [facility] 08-12-2024 13:21-0500 Heart rate 73 /min Flash Lovelace MD Work Phone: [facility] 08-12-2024 13:21-0500 SaO2% (BldA) [Mass fraction] 96 % Flash Lovelace MD Work Phone: [facility] 08-12-2024 13:21-0500 Systolic blood pressure 138 mm[Hg] Flash Lovelace MD Work Phone: [facility] 05-21-2024 13:07-0400 Body height 188 cm Zoë Hemmer PA Work Phone: [facility] 05-21-2024 13:07-0400 Body mass index (BMI) [Ratio] 31.38 kg/m2 Zoë Hemmer PA Work Phone: [facility] 05-21-2024 13:07-0400 Body weight 110.86 kg Zoë Hemmer PA Work Phone: [facility] 05-21-2024 13:07-0400 Diastolic blood pressure 84 mm[Hg] Zoë Hemmer PA Work Phone: [facility] 05-21-2024 13:07-0400 Heart rate 80 /min Zoë Hemmer PA Work Phone: [facility] 05-21-2024 13:07-0400 Respiratory rate 16 /min Zoë Hemmer PA Work Phone: [facility] 05-21-2024 13:07-0400 SaO2% (BldA) [Mass fraction] 98 % Zoë Hemmer PA Work Phone: [facility] 05-21-2024 13:07-0400 Systolic blood pressure 152 mm[Hg] Zoë Hemmer PA Work Phone: [facility] 04-26-2024 09:25-0400 Body height 188 cm Zoë Hemmer PA Work Phone: [facility] 04-26-2024 09:25-0400 Body mass index (BMI) [Ratio] 31.23 kg/m2 Zoë Hemmer PA Work Phone: [facility] 04-26-2024 09:25-0400 Body weight 110.31 kg Zoë Hemmer PA Work Phone: [facility] 04-26-2024 09:25-0400 Diastolic blood pressure 82 mm[Hg] Zoë Hemmer PA Work Phone: [facility] 04-26-2024 09:25-0400 Heart rate 70 /min Zoë Hemmer PA Work Phone: [facility] 04-26-2024 09:25-0400 Respiratory rate 16 /min Zoë Hemmer PA Work Phone: [facility] 04-26-2024 09:25-0400 SaO2% (BldA) [Mass fraction] 96 % Zoë Hemmer PA Work Phone: [facility] 04-26-2024 09:25-0400 Systolic blood pressure 132 mm[Hg] Zoë Hemmer PA Work Phone: [facility] 12-26-2023 13:07-0400 Blood Pressure Location BRENNA MOSQUERA [facility] 12-26-2023 13:07-0400 Diastolic blood pressure 74 mm[Hg] BRENNA JAY [facility] 12-26-2023 13:07-0400 Heart rate 68 /min BRENNA JAY [facility] 12-26-2023 13:07-0400 Respiratory rate 16 /min BRENNA JAY [facility] 12-26-2023 13:07-0400 Systolic blood pressure 130 mm[Hg] BRENNA JAY [facility] 10-12-2023 15:13-0500 Diastolic blood pressure 77 mm[Hg] MD Flash Lovelace Work Phone: [facility] 10-12-2023 15:13-0500 Heart rate 67 /min MD Flash Lovelace Work Phone: [facility] 10-12-2023 15:13-0500 Respiratory rate 16 /min MD Flash Lovelace Work Phone: [facility] 10-12-2023 15:13-0500 SaO2% (BldA) [Mass fraction] 96 % MD Flash Lovelace Work Phone: [facility] 10-12-2023 15:13-0500 Systolic blood pressure 177 mm[Hg] MD Flash Lovelace Work Phone: [facility] 10-12-2023 08:43-0500 Body height 187.96 cm MD Flash Lovelace Work Phone: [facility] 10-12-2023 08:43-0500 Body weight 107 kg MD Flash Lovelace Work Phone: [facility] 10-03-2023 10:00-0500 Body height 187.96 cm Cristian Beaver Other [employer] Other 10-03-2023 10:00-0500 Body mass index (BMI) [Ratio] 30.55 kg/m2 Cristian Saranya Other [employer] Other 10-03-2023 10:00-0500 Body temperature 96.4 [degF] Cristian Beaver Other [employer] Other 10-03-2023 10:00-0500 Body weight 107.96 kg Cristian Melendezwaldemar Other [employer] Other 10-03-2023 10:00-0500 Diastolic blood pressure 78 mm[Hg] Cristian Beaver Other [employer] Other 10-03-2023 10:00-0500 SaO2% (BldA) [Mass fraction] 94 % Cristian Saranya Other [employer] Other 10-03-2023 10:00-0500 Systolic blood pressure 150 mm[Hg] Cristian Beaver Other [employer] Other 08-10-2023 10:52-0500 Body height 188 cm Scar Ortega APRN-[employer] S[employer] MECHANIC Work Phone: [employer] 08-10-2023 10:52-0500 Body mass index (BMI) [Ratio] 29.53 kg/m2 Scar Ortega APRN-[employer]ON S[employer] MECHANIC Work Phone: [employer] 08-10-2023 10:52-0500 Body weight 104.33 kg Scar Ortega ART DEPARTMENT HEAD-[employer]CH[employer] Work Phone: [employer] 08-09-2023 12:29-0500 Diastolic blood pressure 80 mm[Hg] Mohsen Sarabia MD Work Phone: [facility] 08-09-2023 12:29-0500 Systolic blood pressure 135 mm[Hg] Mohsen Sarabia MD Work Phone: [facility] 08-09-2023 12:27-0500 Body height 185.4 cm Mohsen Sarabia MD Work Phone: [facility] 08-09-2023 12:27-0500 Body mass index (BMI) [Ratio] 30.34 kg/m2 Mohsen Sarabia MD Work Phone: [facility] 08-09-2023 12:27-0500 Body weight 104.33 kg Mohsen Sarabia MD Work Phone: [facility] 08-09-2023 12:27-0500 Heart rate 68 /min Mohsen Sarabia MD Work Phone: [facility] 08-09-2023 12:27-0500 Respiratory rate 12 /min Mohsen Sarabia MD Work Phone: [facility] 08-09-2023 12:27-0500 SaO2% (BldA) [Mass fraction] 93 % Mohsen Sarabia MD Work Phone: [facility] 06-12-2023 09:30-0400 Body height 187.96 cm Cristian Beaver Other [employer] Other 06-12-2023 09:30-0400 Body mass index (BMI) [Ratio] 30.55 kg/m2 Cristian Beaver Other [employer] Other 06-12-2023 09:30-0400 Body temperature 97.6 [degF] Cristian Beaver Other [employer] Other 06-12-2023 09:30-0400 Body weight 107.96 kg Cristian Beaver Other [employer] Other 06-12-2023 09:30-0400 Diastolic blood pressure 60 mm[Hg] Cristian Buehrer Other [employer] Other 06-12-2023 09:30-0400 SaO2% (BldA) [Mass fraction] 97 % Cristian Buehrer Other [employer] Other 06-12-2023 09:30-0400 Systolic blood pressure 138 mm[Hg] Cristian Buehrer Other [employer] Other 05-23-2023 10:45-0400 Body height 187.96 cm Cristian Buehrer Other [employer] Other 05-23-2023 10:45-0400 Body mass index (BMI) [Ratio] 30.55 kg/m2 Cristian Buehrer Other [employer] Other 05-23-2023 10:45-0400 Body temperature 97.8 [degF] Cristian Buehrer Other [employer] Other 05-23-2023 10:45-0400 Body weight 107.96 kg Cristian Jonesehrer Other [employer] Other 05-23-2023 10:45-0400 Diastolic blood pressure 78 mm[Hg] Cristian Buehrer Other [employer] Other 05-23-2023 10:45-0400 SaO2% (BldA) [Mass fraction] 98 % Cristian Buehrer Other [employer] Other 05-23-2023 10:45-0400 Systolic blood pressure 126 mm[Hg] Cristian Beaver Other [employer] Other 11-14-2022 10:45-0400 Body height 187.96 cm Haven Malcolm Other [employer] Other 11-14-2022 10:45-0400 Body mass index (BMI) [Ratio] 31.45 kg/m2 Haven Malcolm Other [employer] Other 11-14-2022 10:45-0400 Body temperature 97.3 [degF] Haven Malcolm Other [employer] Other 11-14-2022 10:45-0400 Body weight 111.13 kg Haven Malcolm Other [employer] Other 11-14-2022 10:45-0400 Diastolic blood pressure 58 mm[Hg] Haven Malcolm Other [employer] Other 11-14-2022 10:45-0400 SaO2% (BldA) [Mass fraction] 94 % Haven Malcolm Other [employer] Other 11-14-2022 10:45-0400 Systolic blood pressure 130 mm[Hg] Haven Malcolm Other [employer] Other 11-08-2022 08:09-0400 Body temperature 97.5 [degF] Ronnie Montoya MD Work Phone: [facility] 11-08-2022 08:09-0400 Diastolic blood pressure 70 mm[Hg] Ronnie Montoya MD Work Phone: [facility] 11-08-2022 08:09-0400 Heart rate 81 /min Ronnie Montoya MD Work Phone: [facility] 11-08-2022 08:09-0400 Respiratory rate 16 /min Ronnie Montoya MD Work Phone: [facility] 11-08-2022 08:09-0400 SaO2% (BldA) [Mass fraction] 95 % Ronnie Montoya MD Work Phone: [facility] 11-08-2022 08:09-0400 Systolic blood pressure 122 mm[Hg] Ronnie Montoya MD Work Phone: [facility] 11-03-2022 13:29-0500 Body height 185.4 cm Ronnie Montoya MD Work Phone: [facility] 11-03-2022 13:29-0500 Body mass index (BMI) [Ratio] 32.98 kg/m2 Ronnie Montoya MD Work Phone: [facility] 11-03-2022 13:29-0500 Body weight 113.4 kg Ronnie Montoya MD Work Phone: [facility] 10-30-2022 21:30-0500 Diastolic blood pressure 70 mm[Hg] Dalila Arreguin MD Work Phone: [facility] 10-30-2022 21:30-0500 Heart rate 92 /min Dalila Arreguin MD Work Phone: [facility] 10-30-2022 21:30-0500 Respiratory rate 22 /min Dalila Arreguin MD Work Phone: [facility] 10-30-2022 21:30-0500 SaO2% (BldA) [Mass fraction] 90 % Dalila Arreguin MD Work Phone: [facility] 10-30-2022 21:30-0500 Systolic blood pressure 129 mm[Hg] Dalila Arreguin MD Work Phone: [facility] 10-30-2022 20:00-0500 Diastolic blood pressure 72 mm[Hg] Dalila Arreguin MD Work Phone: [facility] 10-30-2022 20:00-0500 Heart rate 90 /min Dalila Arreguin MD Work Phone: [email or web address] 10-30-2022 20:00-0500 Respiratory rate 7 /min Dalila Arreguin MD Work Phone: [email or web address] 10-30-2022 20:00-0500 SaO2% (BldA) [Mass fraction] 89 % Dalila Arreguin MD Work Phone: [email or web address] 10-30-2022 20:00-0500 Systolic blood pressure 157 mm[Hg] Dalila Arreguin MD Work Phone: [email or web address] 10-30-2022 19:34-0500 Body height 188 cm Dalila Arreguin MD Work Phone: [email or web address] 10-30-2022 19:34-0500 Body mass index (BMI) [Ratio] 32.1 kg/m2 Dalila Arreguin MD Work Phone: [email or web address] 10-30-2022 19:34-0500 Body weight 113.4 kg Dalila Arreguin MD Work Phone: [email or web address] 10-30-2022 19:06-0500 Body temperature 98.4 [degF] Dalila Arreguin MD Work Phone: [email or web address] 07-14-2022 10:48-0500 Body height 188 cm Scar Ortega ART DEPARTMENT HEAD-[employer] Work Phone: [employer] 07-14-2022 10:48-0500 Body mass index (BMI) [Ratio] 32.35 kg/m2 Scar Ortega APRN-[employer] S[employer] MECHANIC Work Phone: [employer] 07-14-2022 10:48-0500 Body temperature 97.3 [degF] Scar Ortega APRN-[employer] S[employer] MECHANIC Work Phone: [employer] 07-14-2022 10:48-0500 Body weight 114.31 kg Scar Ortega ART DEPARTMENT HEAD-[employer] MECH[employer]IC Work Phone: [employer] 05-03-2022 13:00-0400 Body height 187.96 cm Cristian Beaver Other [employer] Other 05-03-2022 13:00-0400 Body mass index (BMI) [Ratio] 32.09 kg/m2 Cristian Melendezwaldemar Other [employer] Other 05-03-2022 13:00-0400 Body temperature 97.2 [degF] Cristian Saranya Other [employer] Other 05-03-2022 13:00-0400 Body weight 113.4 kg Cristian Melendezwaldemar Other [employer] Other 05-03-2022 13:00-0400 Diastolic blood pressure 60 mm[Hg] Cristian Saranya Other [employer] Other 05-03-2022 13:00-0400 SaO2% (BldA) [Mass fraction] 96 % Cristian Melendezwaldemar Other [employer] Other 05-03-2022 13:00-0400 Systolic blood pressure 142 mm[Hg] Cristian Karenaliyahwaldemar Other [employer] Other 04-25-2022 16:45-0400 Diastolic blood pressure 67 mm[Hg] MD Flash Lovelace Work Phone: [facility] 04-25-2022 16:45-0400 Heart rate 67 /min MD Flash Lovelace Work Phone: [facility] 04-25-2022 16:45-0400 Respiratory rate 16 /min MD Flash Lovelace Work Phone: [facility] 04-25-2022 16:45-0400 SaO2% (BldA) [Mass fraction] 97 % MD Flash Lovelace Work Phone: [facility] 04-25-2022 16:45-0400 Systolic blood pressure 158 mm[Hg] MD Flash Lovelace Work Phone: [facility] 04-25-2022 11:24-0400 Body height 187.96 cm MD Flash Lovelace Work Phone: [facility] 04-25-2022 11:24-0400 Body weight 113.39 kg MD Flash Lovelace Work Phone: [facility] 04-19-2022 10:45-0400 Body height 187.96 cm Cristian Beaver Other [employer] Other 04-19-2022 10:45-0400 Body mass index (BMI) [Ratio] 32.09 kg/m2 Cristian Melendezreradha Other [employer] Other 04-19-2022 10:45-0400 Body temperature 97.5 [degF] Cristian Beaver Other [employer] Other 04-19-2022 10:45-0400 Body weight 113.4 kg Cristian Melendezreradha Other [employer] Other 04-19-2022 10:45-0400 Diastolic blood pressure 64 mm[Hg] Cristian Beaver Other [employer] Other 04-19-2022 10:45-0400 SaO2% (BldA) [Mass fraction] 97 % Cristian Beaver Other [employer] Other 04-19-2022 10:45-0400 Systolic blood pressure 130 mm[Hg] Cristian Jonesehrer Other [employer] Other 04-15-2022 17:00-0400 Respiratory rate 16 /min Carson Brock MD Work Phone: [facility] 04-15-2022 15:28-0400 Body temperature 97.9 [degF] Carson Brock MD Work Phone: [facility] 04-15-2022 15:28-0400 Diastolic blood pressure 57 mm[Hg] Carson Brock MD Work Phone: [facility] 04-15-2022 15:28-0400 Heart rate 65 /min Carson Brock MD Work Phone: [facility] 04-15-2022 15:28-0400 SaO2% (BldA) [Mass fraction] 94 % Carson Brock MD Work Phone: [facility] 04-15-2022 15:28-0400 Systolic blood pressure 153 mm[Hg] Carson Brock MD Work Phone: [facility] 04-14-2022 19:35-0400 Body height 188 cm Carson Brock MD Work Phone: [facility] 04-14-2022 19:35-0400 Body mass index (BMI) [Ratio] 31.71 kg/m2 Carson Brock MD Work Phone: [facility] 04-14-2022 19:35-0400 Body weight 112.04 kg Carson Brock MD Work Phone: [facility] 02-25-2022 09:43-0400 Body height 188 cm Wagner Moon MD Work Phone: [facility] 02-25-2022 09:43-0400 Body mass index (BMI) [Ratio] 32.21 kg/m2 Wagner Moon MD Work Phone: [facility] 02-25-2022 09:43-0400 Body temperature 99.1 [degF] Wagner Moon MD Work Phone: [facility] 02-25-2022 09:43-0400 Body weight 113.81 kg Wagner Moon MD Work Phone: [facility] 02-25-2022 09:43-0400 Diastolic blood pressure 84 mm[Hg] Wagner Moon MD Work Phone: [facility] Comment on above: anxiety 02-25-2022 09:43-0400 Heart rate 66 /min Wagner Moon MD Work Phone: [facility] 02-25-2022 09:43-0400 Respiratory rate 16 /min Wagner Moon MD Work Phone: [facility] 02-25-2022 09:43-0400 SaO2% (BldA) [Mass fraction] 95 % Wagner Moon MD Work Phone: [facility] 02-25-2022 09:43-0400 Systolic blood pressure 181 mm[Hg] Wagner Moon MD [facility] [facility] Comment on above: anxiety 01-21-2022 14:15-0400 Respiratory rate 16 /min Mikey Mcguire MD Work Phone: [facility] 01-21-2022 07:53-0400 Body temperature 97.9 [degF] Mikey Mcguire MD Work Phone: [facility] 01-21-2022 07:53-0400 Diastolic blood pressure 73 mm[Hg] Mikey Mcguire MD Work Phone: [facility] 01-21-2022 07:53-0400 Heart rate 66 /min Mikey Mcguire MD Work Phone: [facility] 01-21-2022 07:53-0400 SaO2% (BldA) [Mass fraction] 91 % Mikey Mcguire MD Work Phone: [facility] 01-21-2022 07:53-0400 Systolic blood pressure 133 mm[Hg] Mikey Mcguire MD Work Phone: [facility] 01-18-2022 20:43-0400 Body height 188 cm Mikey Mcguire MD Work Phone: [facility] 01-18-2022 20:43-0400 Body mass index (BMI) [Ratio] 32.1 kg/m2 Mikey Mcguire MD Work Phone: [facility] 01-18-2022 20:43-0400 Body weight 113.4 kg Mikey Mcguire MD Work Phone: [facility] 01-12-2022 09:04-0400 Body height 188 cm Dashawn Silvestre MD Work Phone: [facility] 01-12-2022 09:04-0400 Body mass index (BMI) [Ratio] 32.38 kg/m2 Dashawn Silvestre MD Work Phone: [facility] 01-12-2022 09:04-0400 Body temperature 97.11 [degF] Dashawn Silvestre MD Work Phone: [facility] 01-12-2022 09:04-0400 Body weight 114.4 kg Dashawn Silvestre MD Work Phone: [facility] 11-24-2021 09:44-0400 Body height 188 cm Dashawn Silvestre MD Work Phone: [facility] 11-24-2021 09:44-0400 Body mass index (BMI) [Ratio] 31.07 kg/m2 Dashawn Silvestre MD Work Phone: [facility] 11-24-2021 09:44-0400 Body weight 109.77 kg Dashawn Silvestre MD Work Phone: [facility] 10-09-2019 14:17-0500 BMI (Body Mass Index) 31.46 kg/m2 [facility] 10-09-2019 14:17-0500 Body weight 111.[address] [facility] 10-09-2019 14:17-0500 BP Diastolic 66 mm[Hg] [facility] 10-09-2019 14:17-0500 BP Systolic 135 mm[Hg] [facility] 10-09-2019 14:17-[address] [facility] 10-09-2019 14:17-0500 Pulse (Heart Rate) 71 /min [facility] 10-09-2019 14:17-0500 Pulse Oximetry 95 % [facility] 03-13-2019 09:57-0400 BMI (Body Mass Index) 27.99 kg/m2 Mohsen Sarabia [facility] 03-13-2019 09:57-0400 Body weight 98.88 kg Mohsen Sarabia [facility] 03-13-2019 09:57-0400 BP Diastolic 73 mm[Hg] Mohsen Sarabia [facility] 03-13-2019 09:57-0400 BP Systolic 156 mm[Hg] Mohsen Sarabia [facility] 03-13-2019 09:57-0400 Height 188 cm Mohsen Sarabia [facility] 03-13-2019 09:57-0400 Pulse (Heart Rate) 72 /min Mohsen Sarabia [facility] 03-13-2019 09:57-0400 Pulse Oximetry 98 % Mohsen Sarabia [facility] 03-13-2019 09:57-0400 Respiratory Rate 16 /min Mohsen Sarabia [facility] 10-25-2018 15:07-0500 Body Temperature 99.39 [degF] [facility] 10-25-2018 15:07-0500 BP Diastolic 74 mm[Hg] [facility] 10-25-2018 15:07-0500 BP Systolic 176 mm[Hg] [facility] 10-25-2018 15:07-0500 Pulse (Heart Rate) 96 /min [facility] 10-25-2018 15:07-0500 Respiratory Rate 16 /min [facility] 10-18-2018 15:29-0500 Body Temperature 98.4 [degF] [facility] 10-18-2018 15:29-0500 BP Diastolic 79 mm[Hg] [facility] 10-18-2018 15:29-0500 BP Systolic 137 mm[Hg] [facility] 10-18-2018 15:29-0500 Pulse (Heart Rate) 86 /min [facility] 10-18-2018 15:29-0500 Respiratory Rate 16 /min [facility] 10-12-2018 18:41-0500 BP Diastolic 64 mm[Hg] [facility] 10-12-2018 18:41-0500 BP Systolic 138 mm[Hg] [facility] 10-12-2018 12:17-0500 Body Temperature 98.2 [degF] [facility] 10-12-2018 12:17-0500 Pulse (Heart Rate) 72 /min [facility] 10-12-2018 12:17-0500 Pulse Oximetry 96 % [facility] 10-12-2018 12:17-0500 Respiratory Rate 14 /min [facility] 10-08-2018 06:20-0500 BMI (Body Mass Index) 27.99 kg/m2 [facility] 10-08-2018 06:20-0500 Height 188 cm [facility] 10-08-2018 06:20-0500 Weight 98.88 kg [facility] 10-04-2018 13:08-0500 Body Temperature 98.2 [degF] [facility] 10-04-2018 13:08-0500 BP Diastolic 80 mm[Hg] [facility] 10-04-2018 13:08-0500 BP Systolic 154 mm[Hg] [facility] 10-04-2018 13:08-0500 Pulse (Heart Rate) 87 /min [facility] 10-04-2018 13:08-0500 Respiratory Rate 16 /min [facility] 09-20-2018 14:15-0500 BMI (Body Mass Index) 30.3 kg/m2 [facility] 09-20-2018 14:15-0500 Body Temperature 97.9 [degF] [facility] 09-20-2018 14:15-0500 BP Diastolic 75 mm[Hg] [facility] 09-20-2018 14:15-0500 BP Systolic 136 mm[Hg] [facility] 09-20-2018 14:15-0500 Height 188 cm [facility] 09-20-2018 14:15-0500 Pulse (Heart Rate) 92 /min [facility] 09-20-2018 14:15-0500 Respiratory Rate 16 /min [facility] 09-20-2018 14:15-0500 Weight 107.05 kg [facility] 09-13-2018 10:30-0500 Respiratory Rate 20 /[facility]13[facility] 07:36-0500 Body Temperature 99.3 [degF] [facility] 09-13-2018 07:36-0500 BP Diastolic 66 mm[Hg] [facility] 09-13-2018 07:36-0500 BP Systolic 147 mm[Hg] [facility] 09-13-2018 07:36-0500 Pulse (Heart Rate) 103 /min [facility] 09-13-2018 07:36-0500 Pulse Oximetry 92 % [facility] 09-04-2018 19:09-0500 BMI (Body Mass Index) 31.58 kg/m2 [facility] 09-04-2018 19:09-0500 Height 188 cm Tiana [facility] 09-04-2018 19:09-0500 Weight 111.58 kg Tiana [facility] Encounters Encounter Date Encounter Type Care Provider Facility Start: 04-29-2025 End: 04-29-2025 Telephone encounter Sheree ROWE [facility] Comment on above: Medication Question (Has a terrible cold and runny nose wanted to know if you could zuly in a z-pack for him.) Benign essential hyp ertension Start: 04-23-2025 End: 04-23-2025 Office outpatient visit 25 minutes Mohsen Sarabia MD Work Phone: [facility] Comment on above: Critical lower limb ischemia (HCC) (Primary Dx) Start: 04-23-2025 End: 04-23-2025 ambulatory [facility] Start: 04-23-2025 End: 04-23-2025 ambulatory [facility] Start: 04-21-2025 End: 04-21-2025 Telephone encounter Elaine Saab LPN Work Phone: [facility] Start: 04-16-2025 End: 04-16-2025 Clinisync Result Encounter Generic External Data Provider [facility] External Department Unsolicited Start: 04-16-2025 End: 04-16-2025 Clinisync Result Encounter Generic External Data Provider [facility] External Department Unsolicited Start: 04-15-2025 End: 04-15-2025 Clinisync Result Encounter Generic External Data Provider [facility] External Department Unsolicited Start: 04-15-2025 End: 04-15-2025 Clinisync Result Encounter Generic External Data Provider [facility] External Department Unsolicited Start: 04-15-2025 End: 04-15-2025 ambulatory FLASH LOVELACE Not Available Start: 04-14-2025 End: 04-14-2025 Office outpatient visit 25 minutes Flash Lovelace MD Work Phone: [facility] Comment on above: PVD (peripheral vasc ular disease) with claudication (Primary Dx); Ischemic toe ulcer, right, with 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); Osteomyelitis of right foot, unspecified type (HCC) Start: 04-14-2025 End: 04-14-2025 ambulatory FLASH LOVELACE Not Available Start: 04-09-2025 End: 04-09-2025 Telephone encounter Zoë BROWER Work Phone: [facility] Start: 04-08-2025 End: 04-08-2025 Bamboo flowsheet Zoë King PA Work Phone: [facility] Start: 04-08-2025 End: 04-09-2025 Bamboo flowsheet Zoë King PA Work Phone: [facility] Start: 04-08-2025 End: 04-09-2025 External Result Encounter Zoë King PA Work Phone: [facility] External Department Unsolicited Start: 04-08-2025 End: 04-08-2025 Office outpatient visit 25 minutes Zoë King PA Work Phone: [facility] Comment on above: PVD (peripheral vasc ular disease) with claudication (Primary Dx); Acquired absence of left foot (HCC); Ischemic toe ulcer, right, with 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) Start: 04-08-2025 End: 04-08-2025 ambulatory ZOË KING Not Available Start: 04-02-2025 End: 04-02-2025 Office outpatient visit 15 minutes Mohsen Sarabia MD Work Phone: [facility] Comment on above: Critical lower limb ischemia (HCC) (Primary Dx) Start: 04-02-2025 End: 04-02-2025 ambulatory MOHSEN SARABIA [facility] Ambulatory Start: 03-31-2025 End: 03-31-2025 Office outpatient visit 25 minutes Flash Lovelace MD Work Phone: [facility] Comment on above: PVD (peripheral vasc ular disease) with claudication; History of prostate cancer; Urinary hesitancy Start: 03-31-2025 End: 03-31-2025 ambulatory FLASH LOVELACE Not Available Start: 03-26-2025 Evaluation and manag ement of inpatient Cristian Beaver Facility:[facility] Start: 03-18-2025 End: 03-18-2025 Documentation procedure Brenna Galloway RN [facility] Start: 03-14-2025 End: 03-14-2025 Documentation procedure Ludivina Garcia RN [facility] Start: 03-14-2025 End: 03-21-2025 Evaluation and management of inpatient Elaine Macdonald MD Work Phone: [facility] Start: 03-14-2025 End: 03-14-2025 Postop follow up visit related to original px Mohsen Sarabia MD Work Phone: [facility] Comment on above: Acute pain of right lower extremity (Primary Dx) Start: 03-14-2025 End: 03-14-2025 ambulatory MOHSEN SARABIA [facility] Start: 03-14-2025 End: 03-14-2025 ambulatory FLASH LOVELACE [facility] Start: 03-13-2025 End: 03-13-2025 Documentation procedure Ludivina Garcia RN [facility] ist Cardiac Non-Invasive Lab Start: 03-12-2025 End: 03-12-2025 Admission to same day surgery center Cristian Beaver MD [facility] Start: 03-12-2025 End: 03-12-2025 ambulatory Flash Lovelace MD Work Phone: [facility] Work Phone: Start: 03-11-2025 End: 03-11-2025 ambulatory Flash Lovelace MD Work Phone: [facility] Work Phone: Start: 03-11-2025 End: 03-11-2025 Patient encounter procedure Cristian Beaver MD -[facility] Vascular Surg Work Phone: Start: 02-13-2025 End: 02-13-2025 Refill Flash Lovelace MD Work Phone: [facility] Comment on above: Primary insomnia; Other chronic pain; Lumbosacral spondylosis without myelopathy Start: 01-09-2025 End: 01-09-2025 Bamboo flowsheet Bhaskar Wilson SHRUB GROWER Work Phone: [facility] Start: 01-09-2025 End: 01-09-2025 Bamboo flowsheet Bhaskar Wilson SHRUB GROWER Work Phone: [facility] Start: 01-09-2025 End: 01-09-2025 Office outpatient visit 25 minutes Bhaskar iWlson SHRUB GROWER Work Phone: [facility] Comment on above: Dysuria (Primary Dx) ; History of prostate cancer; Urinary hesitancy; Right-sided low back pain without sciatica, unspecified chronicity Start: 01-09-2025 End: 01-09-2025 ambulatory BHASKAR WILSON Not Available Start: 01-02-2025 End: 01-02-2025 Refill Flash Lovelace MD Work Phone: [facility] Comment on above: Other chronic pain; Lumbosacral spondylosis without myelopathy Start: 12-18-2024 ambulatory ELIEZER miller [facility] Start: 11-26-2024 End: 11-26-2024 Refill Flash Lovelace MD Work Phone: [facility] Comment on above: Other chronic pain ( Primary Dx); Sinusitis, unspecified chronicity, unspecified location; Lumbosacral spondylosis without myelopathy Start: 11-25-2024 End: 11-26-2024 ambulatory Elaine Saab [facility] Start: 11-04-2024 End: 11-04-2024 ambulatory FLASH LOVELACE Not Available Start: 10-18-2024 End: 10-21-2024 Refill Lorraine Valdez MA [facility] Comment on above: Lumbosacral spondylo sis without myelopathy Start: 10-01-2024 ambulatory MOHSEN DE OLIVEIRA [facility] Start: 09-23-2024 End: 09-23-2024 Documentation procedure Ludivina Garcia RN [facility] Start: 09-12-2024 End: 09-13-2024 Refill Flash Lovelace MD Work Phone: [facility] Comment on above: Lumbosacral spondylo sis without myelopathy Start: 08-20-2024 End: 08-20-2024 Documentation procedure Ludivina Garcia RN [facility] , [facility] & Vascular [...] Orders Only Ludivina Garcia RN [facility] Comment on above: PVD (peripheral vasc ular disease) (HCC) (Primary Dx) Start: 07-29-2024 End: 07-29-2024 ambulatory Cristian Beaver Facility:[facility] Start: 07-22-2024 End: 07-22-[address] [facility] Start: 07-11-2024 End: 07-11-2024 Clinisync Result Encounter Generic External Data Provider [facility] External Department Unsolicited Start: 07-11-2024 End: 07-11-2024 Clinisync Result Encounter Generic External Data Provider [facility] External Department Unsolicited Start: 07-10-2024 End: 07-10-[address] [facility] Start: 07-05-2024 End: 07-05-2024 Refill Flash Lovelace [...] [facility] Start: 05-28-2024 End: 05-28-2024 ambulatory [facility] Start: 05-21-2024 End: 05-21-2024 Bamboo flowsheet Zoë King PA Work Phone: [facility] Start: 05-21-2024 End: 05-21-2024 Bamboo flowsheet Zoë BROWER Work Phone: [facility] Start: 05-21-2024 End: 05-21-2024 Office outpatient visit 25 minutes Zoë BROWER Work Phone: [facility] Comment on above: Chest pain in adult (Primary Dx); Lumbosacral spondylosis without myelopathy; 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CMS/HCC); Seasonal allergic rhinitis due to pollen Start: 05-21-2024 End: 05-21-2024 ambulatory ZOË KING Not Available Start: 05-14-2024 End: 05-14-2024 [...] Unsolicited Start: 05-12-2024 End: 05-14-2024 ambulatory FLASH Agarwal [facility] Start: 04-26-2024 End: 04-26-2024 Bamboo flowsheet Zoë BROWER Work Phone: [facility] Start: 04-26-2024 End: 04-26-2024 Bamboo flowsheet Zoë BROWER Work Phone: [facility] Start: 04-26-2024 End: 04-26-2024 Patient encounter procedure Zoë BROWER Work Phone: [facility] Comment on above: Medicare annual well ness visit, subsequent (Primary Dx); ACP (advance care [...] of cardiac valve disease unspecified; Atherosclerosis of eyak coronary artery of eyak heart without angina pectoris (CMS/HCC); Benign essential [...] amputation of left foot (CMS/HCC); 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, unspecified extremity (CMS/HCC); Pulmonary hypertension, unspecified (CMS/HCC) Start: 04-26-2024 End: 04-26-2024 ambulatory ZOË KING Not Available Start: 04-24-2024 End: 04-24-2024 ambulatory [facility] Start: 12-26-2023 End: 12-27-2023 ambulatory BRENNA MOSQUERA Facility:[facility] Start: 12-26-2023 End: 12-26-2023 Patient encounter procedure BRENNA MOSQUERA [facility] Start: 10-17-2023 End: 10-17-2023 ambulatory MD Flash Lovelace Work Phone: [facility] Work Phone: Start: 10-17-2023 End: 10-17-2023 Patient encounter procedure MD Flash Lovelace Work Phone: [facility]-Electrodiagnostic s Work Phone: Start: 10-12-2023 Non-patient / Non-visit MD Davon Lovelace Work Phone: [facility] Work Phone: Start: 10-12-2023 End: 10-12-2023 Admission to same day surgery center MD Flash Lovelace Work Phone: [facility]-Interventional Radiology Work Phone: Start: 10-12-2023 End: 10-12-2023 ambulatory MD Flash Lovelace Work Phone: [facility] Work Phone: Start: 10-03-2023 End: 10-03-2023 ambulatory Cristian Beaver Other [employer] Other Start: 10-03-2023 Office outpatient vi sit 25 minutes Cristian Beaver [facility] Vascular Surgery Start: 08-10-2023 ambulatory SCAR ORTEGA [facility] Start: 08-10-2023 End: 08-10-2023 Office outpatient visit 15 minutes Scar MATOS Work Phone: [facility] Comment on above: Hx of total hip arth roplasty, right (Primary Dx) Start: 08-10-2023 End: 08-10-2023 Subsequent hospital visit by physician Scar MATOS Work Phone: [facility] Start: 08-09-2023 End: 08-09-2023 Office outpatient visit 10 minutes Mohsen Sarabia MD Work Phone: [facility] Comment on above: Critical lower limb ischemia (HCC) (Primary Dx) Start: 06-20-2023 Documentation procedure Katie harman RN [facility] Start: 06-12-2023 Office outpatient vi sit 25 minutes Cristian Beaver [facility] Vascular Surgery Start: 06-12-2023 End: 06-12-2023 ambulatory MD Flash Lovelace Work Phone: [employer] Other Start: 06-12-2023 End: 06-12-2023 Patient encounter procedure MD Flash Lovelace Work Phone: [facility] Start: 06-06-2023 End: 04-26-2024 Assay of hemosiderin, quant Zoë Rochemer LEONARDA Work Phone: [facility] Start: 05-23-2023 Office outpatient vi sit 25 minutes Haven MINA [facility] Start: 05-23-2023 End: 05-23-2023 ambulatory MD Flash Lovelace Work Phone: [employer] Other Start: 05-23-2023 End: 05-23-2023 Patient encounter procedure MD Flash Lovelace Work Phone: [facility] Start: 05-15-2023 Orders Only Mohsen paris MD Work Phone: [facility] Comment on above: PAD (peripheral devyn ry disease) (HCC) (Primary Dx) Start: 12-20-2022 End: 12-20-2022 Patient encounter procedure BRENNA MOSQUERA [facility] Start: 12-07-2022 End: 12-08-[address] FLASH LOVELACE Facility:[facility] Start: 11-14-2022 End: 11-14-2022 ambulatory Haven Malcolm Other [employer] Other Start: 11-14-2022 Follow-up encounter Haven Tej[facility] Start: 11-10-2022 End: 11-11-[address] FLASH LOVELACE Facility:[facility] Start: 11-08-2022 End: 11-08-2022 Patient encounter procedure BRENNA MOSQUERA [facility] Start: 11-03-2022 End: 03-14-2023 Evaluation and management of inpatient Ronnie Montoya MD Work Phone: [facility] Start: 10-30-2022 End: 10-30-2022 Emergency department patient visit FLASH ALCALA Work Phone: Comment on above: 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, unspecified part of lung (Primary Dx); COPD exacerbation (HCC) Start: 10-11-2022 End: 10-12-[address] FLASH LOVELACE Facility: Start: 09-20-2022 Documentation procedure Violetta Huerta [facility] Start: 08-30-2022 Refill Carolee Avila LPN [facility] Comment on above: Chronic obstructive pulmonary disease, unspecified COPD type (HCC) Start: 07-14-2022 End: 07-14-2022 Office outpatient visit 15 minutes Scar Ortega APRN-[employer] Work Phone: [facility] Comment on above: Hx of total hip arth roplasty, right (Primary Dx) Start: 07-14-2022 End: 07-14-2022 Subsequent hospital visit by physician Scar Ortega APRN-[employer] Work Phone: [facility] Start: 05-25-2022 Orders Only Katie Anna RN [facility] Comment on above: Bilateral carotid ar petra stenosis (Primary Dx) Start: 05-11-2022 End: 05-12-2022 ambulatory [facility] Start: 05-03-2022 End: 05-03-2022 ambulatory Cristian Beaver Other [employer] Other Start: 05-03-2022 Office outpatient vi sit 25 minutes Cristian Beaver [facility] Vascular Surgery Start: 04-25-2022 End: 04-25-2022 Admission to same day surgery center MD Flash Lovelace Work Phone: [facility]-Interventional Radiology Start: 04-19-2022 End: 04-19-2022 ambulatory Cristian Beaver Other [facility] [employer] Other Start: 04-19-2022 Office outpatient ne w 45 minutes Cristian Beaver [facility] Vascular Surgery Start: 04-16-2022 Documentation procedure Aaron Fenton DPJenni Work Phone: [facility] Start: 04-14-2022 End: 04-15-2022 Emergency department patient visit Carson Brock MD Work Phone: [facility] Start: 04-14-2022 Documentation procedure Katie harman RN [facility] Start: 02-25-2022 End: 02-25-2022 Office outpatient new 45 minutes Muna Otto MD Work Phone: [facility] Comment on above: Chronic obstructive pulmonary disease, unspecified COPD type (HCC) (Primary Dx); Pulmonary nodule Start: 01-28-2022 End: 01-29-2022 ambulatory [facility] Facility: Start: 01-18-2022 End: 01-21-2022 Evaluation and management of inpatient Mikey Mcguire MD Work Phone: [facility] Start: 01-18-2022 Documentation procedure Katie harman RN [facility] Start: 01-12-2022 End: 01-12-2022 Office outpatient visit 15 minutes Dashawn Silvestre MD Work Phone: [facility] Comment on above: Hx of total hip arth roplasty, right (Primary Dx) Start: 01-12-2022 End: 01-12-2022 Subsequent hospital visit by physician Dashawn Silvestre MD Work Phone: [facility] Start: 12-28-2021 End: 01-01-2022 [facility] Start: 12-28-2021 End: 12-28-2021 Office outpatient new 30 minutes Ileana Kang DO Work Phone: [facility] Comment on above: Actinic keratosis (P rimary Dx); SK (seborrheic keratosis); Inflamed seborrheic keratosis; Skin tenderness; Xerosis cutis Start: 11-24-2021 End: 11-24-2021 Office outpatient visit 15 minutes Dashawn Silvestre MD Work Phone: [facility] Comment on above: Pain in prosthetic j oint, subsequent encounter (Primary Dx) Start: 11-24-2021 End: 11-24-2021 Subsequent hospital visit by physician Dashawn Silvestre MD Work Phone: [facility] Start: 04-06-2021 End: 04-06-2021 Orders Only Katie Anna RN [facility] Comment on above: Bilateral carotid ar petra stenosis (Primary Dx); PAD (peripheral artery disease) (HCC) PAD (peripheral devyn ry disease) (HCC) (Primary Dx) Start: 09-11-2020 End: 09-11-2020 Orders Only Rhonda Oviedo Work Phone: [facility] Start: 03-16-2020 End: 03-16-2020 Subsequent hospital visit by physician Mohsen Sarabia Work Phone: [facility] Comment on above: Bilateral carotid ar petra stenosis 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) Start: 10-21-2019 End: 10-21-2019 Subsequent hospital visit by physician Mohsen Sarabia Work Phone: [facility] Comment on above: S/P bypass graft of extremity; PAD (peripheral artery disease) (HCC); 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) Start: 10-09-2019 End: 10-09-2019 Office outpatient visit 25 minutes Rose Rosales Work Phone: [facility] Comment on above: Pain of left lower e xtremity (Primary Dx) Start: 10-09-2019 End: 10-09-2019 Subsequent hospital visit by physician Mohsen Sarabia Work Phone: [facility] Comment on above: 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); S/P bypass graft of extremity Start: 03-18-2019 End: 03-18-2019 Subsequent hospital visit by physician Mohsen Sarabia Work Phone: [facility] Comment on above: Bilateral carotid ar petra stenosis Start: 03-13-2019 End: 03-13-2019 Office outpatient visit 10 minutes Mohsen Sarabia Work Phone: [facility] Comment on above: Critical lower limb ischemia (Primary Dx) Start: 03-13-2019 End: 03-13-2019 Subsequent hospital visit by physician Mohsen Sarabia Work Phone: [facility] Comment on above: 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) Start: 12-17-2018 End: 12-17-2018 Office outpatient new 30 minutes Eugene Barnett Work Phone: [facility] Comment on above: Referred otalgia of right ear (Primary Dx); Bilateral temporomandibular joint pain Start: 11-23-2018 Patient encounter procedure ANALIA FOX Facility[facility] Start: 10-31-2018 End: 10-31-2018 Emergency department patient visit [facility] Start: 10-31-2018 End: 10-31-2018 Office outpatient visit 10 minutes Mohsen Sarabia Work Phone: [facility] Comment on above: Gangrene of left eliseo t (HCC) (Primary Dx); Critical lower limb ischemia Start: 10-31-2018 End: 10-31-2018 Subsequent hospital visit by physician Mohsen Sarabia Work Phone: [facility] Comment on above: Atherosclerosis of n ative artery of left lower extremity with rest pain (HCC) ; S/P bypass graft of extremity; Atherosclerosis of eyak artery of left lower extremity with rest pain (HCC) Start: 10-31-2018 End: 10-31-2018 Patient encounter procedure Mohsen Sarabia Work Phone: [facility] Comment on above: 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) ; S/P bypass graft of extremity; 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) Start: 10-26-2018 Coordination of care plan [facility] Start: 10-26-2018 End: 10-26-2018 Patient encounter procedure Mine Lew [facility] Start: 10-25-2018 End: 10-25-2018 Postop follow up visit related to original px Flynn Linda Lalitha Work Phone: [facility] Comment on above: 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); Gangrene (HCC); PVD (peripheral vascular disease) ([facility]); 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, left; Lower extremity edema Start: 10-19-2018 Coordination of care plan [facility] Coordination Start: 10-19-2018 End: 10-19-2018 Patient encounter procedure Mine Lew [facility] Start: 10-18-2018 End: 10-18-2018 Postop follow up visit related to original px Flynn Linda Lalitha Work Phone: [facility] Comment on above: Gangrene (HCC) (Prim katherine Dx); 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 (HCC); PVD (peripheral vascular disease) (HCC); Lower extremity edema; 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 Start: 10-04-2018 End: 10-12-2018 Evaluation and management of inpatient Flynn Mann Work Phone: [facility] Comment on above: Acute post-operative pain (Primary Dx) Start: 10-04-2018 End: 10-04-2018 Office outpatient visit 15 minutes Flynn Mann Work Phone: [facility] Comment on above: Gangrene (HCC) (Prim katherine Dx); PVD (peripheral vascular disease) (HCC); Left foot pain; Critical lower limb ischemia; Ulcer of toe of left foot, with necrosis of bone (HCC) Start: 09-27-2018 Coordination of care plan Mine Lew [facility] Coord[facility] Start: 09-27-2018 End: 09-27-2018 Patient encounter procedure Mine Lew [facility] Start: 09-21-2018 End: 09-21-2018 Coordination of care plan Radha Parker [facility] Start: 09-21-2018 End: 09-21-2018 Patient encounter procedure Mine Lew [facility] Start: 09-20-2018 End: 09-20-2018 Patient encounter procedure Flynn Mann Work Phone: [facility] Comment on above: Critical lower limb ischemia Start: 09-20-2018 End: 09-20-2018 Office outpatient visit 15 minutes Flynn Mann Work Phone: [facility] Comment on above: Critical lower limb ischemia (Primary Dx); Gangrene (HCC); PVD (peripheral vascular disease) (HCC); Left foot pain Start: 09-04-2018 End: 09-13-2018 Evaluation and management of inpatient Tiana Em Work Phone: [facility] Comment on above: Ischemic foot (Prima ry Dx); PAD (peripheral artery disease) (HCC); Critical lower limb ischemia Start: 08-29-2018 Patient encounter procedure [facility] Start: 08-27-2018 Patient encounter procedure [facility] Start: 08-22-2018 Patient encounter procedure [facility] Start: 10-31-2016 End: 11-06-2016 Ambulatory [facility] Facility[facility] Start: 03-06-2014 End: 03-06-2014 Patient encounter procedure [facility] Procedures Date Procedure Procedure Detail Performing Clinician Start: 04-16-2025 XR FOOT RT MIN 3V Generic External Data Provider Start: 04-15-2025 ALL CBC WITH AUTO DIFF Generic External Data Provider Start: 04-08-2025 HERPES SIMPLEX VIRUS 1 oZë BROWER Work Phone: Start: 03-21-2025 Basic metabolic [...] MD Work Phone: Start: 03-17-[address] [facility] Work Phone: Start: 03-17-2025 Basic [...] 03-15-2025 Thromboplastin time partial plasma/whole blood Mary Richie Msat MD Work Phone: Start: 03-15-2025 Blood count [...] Phone: Start: 03-14-2025 Follow-up visit Follow-up KEN AIDA JOHNSON Start: 03-12-2025 OR DSA (Angiogram) Right Leg Flash Lovelace MD Work Phone: Start: 03-12-2025 ELECTROPHYSIOLOGY REPORT Mohsen cifuentes MD Work Phone: Start: 01-09-2025 Urnls dip stick/tablet rgnt non-auto w/o micrscp Bhaskar Wilson NP Work Phone: Start: 11-04-2024 History of amputation of foot Acquired absence of left foot Elaine Saab INSTRUCTOR DANCING Start: 07-11-2024 ALL BASIC METABOLIC PANEL Generic Oyster Preparer al Data Provider Start: 07-11-2024 ALL CBC WITH AUTO DIFF Generic External Data Provider Start: 07-11-2024 ALL SED RATE Generic External Data Provider Start: 07-11-2024 MHPT DIFFERENTIAL Generic External Data Provider Start: 07-03-2024 ALL BASIC METABOLIC PANEL Generic Oyster Preparer al Data Provider Start: 05-28-2024 History of [...] index MD Flash mcgraw Work Phone: Start: 09-26-2023 Duplex scan of lower limb arteries MD Flash Lovelace Work Phone: Start: 04-09-2023 History of amputation of foot Status post amputation of foot Zoë BROWER Work Phone: Start: 11-08-2022 Radiologic exam chest single view Jose Escalona NEON SIGN MECHANIC Work Phone: Start: 11-08-2022 Renal function panel [...] 11-04-2022 Radex humerus minimum 2 views Gustavo Was son NEON SIGN MECHANIC Work Phone: Start: 11-04-2022 Renal function panel [...] 11-03-2022 Radiologic exam chest single view Aurelia Tillman NEON SIGN MECHANIC Work Phone: Start: 11-03-2022 Radex foot complete minimum 3 views Aurelia Tillman NEON SIGN MECHANIC Work Phone: Start: 11-03-2022 Dup-scan xtr veins complete bilateral study Aurelia Tillman NEON SIGN MECHANIC Work Phone: Start: 11-03-2022 Basic metabolic panel calcium total Aurelia Tillman CNP Work Phone: Start: 11-03-2022 C-reactive protein Aurelia Tillman NEON SIGN MECHANIC Work Phone: Start: 11-03-2022 FRIEDMAN TOP Triage Protocol Emergency MD Start: 11-03-2022 LIGHT BLUE TOP Triage Protocol Emergency MD Start: 11-03-2022 LIGHT GREEN TOP Triage Protocol Emergency MD Start: 11-03-2022 PINK TOP Triage Protocol Emergency MD Start: 11-03-2022 Ecg routine ecg w/least 12 lds trcg only w/o i&r Aurelia Tillman NEON SIGN MECHANIC Work Phone: Start: 11-03-2022 End: 11-03-2022 RAINBOW DRAW Triage Protocol Emergency Start: 11-03-2022 URINE CONTAINER Triage Protocol Emergency MD Start: 11-03-2022 End: 11-03-2022 Urnls dip stick/tablet reagent auto microscopy Aurelia Tillman NEON SIGN MECHANIC Work Phone: Start: 10-30-2022 Iadna respiratry probe & rev trnscr 12-25 target Dalila Arreguin MD Work Phone: Start: 10-30-2022 Radiologic exam chest single view Dalila Arreguin MD Work Phone: Start: 10-30-2022 DIFFERENTIAL Dalila Arreguin MD Work Phone: Start: 10-30-2022 End: 10-30-2022 Natriuretic peptide Dalila Arreguin MD Work Phone: Start: 10-11-[address] FLASH LOVELACE Comment on above: Performed By: #### PSAD #### [facility] [address] [place] [address] Dr. Benedict Edmondson Start: 04-25-2022 Ultrasound (US) [...] Start: 01-19-2022 Cta abdl aorta&bi iliofem w/contrast&postp Rodritang Back DO Work Phone: Start: 01-18-2022 Ecg routine ecg w/least 12 lds w/i&r Mikey Mcguire MD Work Phone: Start: 01-18-2022 End: 01-18-2022 Radex ankle complete minimum 3 views Amy Ojeda PA-C Work Phone: Start: 01-18-2022 End: 01-18-2022 Basic metabolic panel calcium total Mehnaz Rebecca Elmira Adonis PA-C Work Phone: Start: 01-18-2022 C-reactive protein Mehnaz Rebecca Elmira Adonis PA-C Work Phone: Start: 01-18-2022 Culture bacterial blood aerobic w/id isolates Mehnaz Rebecca Elmira Adonis PA-C Work Phone: Start: 01-18-2022 FRIEDMAN TOP Mikey Mcguire MD Work Phone: Start: 01-18-2022 LIGHT BLUE TOP Mikey Mcguire MD Work Phone: Start: 01-18-2022 LIGHT GREEN TOP Mikey Mcguire MD Work Phone: Start: 01-18-2022 OBTAIN VENOUS BLOOD GASES AND PERFORM Mehnaz Rebecca Elmira Adonis PA-C Work Phone: Start: 01-18-2022 PINK TOP Mikey Mcguire MD Work Phone: Start: 01-18-2022 RAINBOW DRAW Mikey Mcguire MD Work Phone: Start: 01-18-2022 Ecg routine ecg w/least 12 lds w/i&r Central Service Tech Generic Start: 03-16-2020 Carotid artery doppler assessment [...] 2 level Mohsen Sarabia Work Phone: Start: 10-31-2018 Dup-scan lxtr [...] Start: 10-10-2018 Procedure on tissue specimen Daniella Mikey Work Phone: Start: 10-10-2018 Endoscopy of esophagus Ben Jensen Work Phone: Start: 10-10-2018 Creatinine [Mass/volume] in Serum or Plasma Fatou Britton Start: 10-10-2018 Hemoglobin and Hematocrit panel - Blood Stan Canseco Work Phone: Start: 10-10-2018 Vancomycin [Mass/volume] in Serum or Plasma --trough Demetrice Lakatos Start: 10-10-2018 Hemoglobin and Hematocrit panel - [...] in Serum or Plasma Fatou Britton Start: 10-08-2018 Echocardiography Aaron Choi Work Phone: Start: 10-08-2018 Radiologic examination foot 2 views Ofe Wood Work Phone: Start: 10-08-2018 OXYGEN TITRATE Ofe Wood Work Phone: Start: 10-08-2018 Procedure on tissue specimen Flynn Mann Work Phone: Start: 10-08-2018 End: 10-08-2018 AMPUTATION TRANSMETATARSAL Flynn Mann Work Phone: Start: 10-08-2018 Basic metabolic 2000 [...] Phone: Start: 10-05-2018 12 lead ECG Aaron Vance Perez Work Phone: Start: 10-05-2018 Basic metabolic 2000 panel - Serum or Plasma Lazaro Clifton Work Phone: Start: 10-04-2018 X-ray of [...] metabolic 2000 panel - Serum or Plasma Sanchomo Erin Rincon Work Phone: Start: 09-13-2018 Complete blood count (hemogram) panel - Blood by Automated count Miryam Rincon Work Phone: Start: 09-13-2018 INR in Platelet poor plasma by Coagulation assay Pacoa B Sergey Work Phone: Start: 09-13-2018 Complete blood count (hemogram) panel - Blood by Automated count Tiana Em Work Phone: Start: 09-12-2018 Basic metabolic 2000 panel - Serum or Plasma Pacoa B Sergey Work Phone: Start: 09-12-2018 Complete blood count (hemogram) panel - Blood by Automated count Miryam Rincon Work Phone: Start: 09-12-2018 INR in Platelet poor plasma by Coagulation assay Pacoa B Sergey Work Phone: Start: 09-12-2018 Hemoglobin and Hematocrit panel - Blood Vianca Franco Work Phone: Start: 09-11-2018 Packed RBC preparation Miryam christie Work Phone: Start: 09-11-2018 Blood type and Indirect antibody screen panel - Blood Miryam Rincon Work Phone: Start: 09-11-2018 Basic metabolic 2000 panel - Serum or Plasma Pacoa Erin Rincon Work Phone: Start: 09-11-2018 Complete blood [...] metabolic 2000 panel - Serum or Plasma Pacoa B Sergey Work Phone: Start: 09-09-2018 Complete blood count (hemogram) panel - Blood by Automated count Miryam Rincon Work Phone: Start: 09-09-2018 INR in Platelet poor plasma by Coagulation assay Miryam Rincon Work Phone: Start: 09-08-2018 Basic metabolic 2000 panel - Serum or Plasma Pacoa Erin Rincon Work Phone: Start: 09-08-2018 Complete blood count (hemogram) panel - Blood by Automated count Miryam Rincon Work Phone: Start: 09-08-2018 INR in Platelet poor plasma by Coagulation assay Miryam Rincon Work Phone: Start: 09-08-2018 XR OR ANG ADD Mohsen Sarabia Work Phone: Start: 09-08-2018 Fluoroscopy up to 1 hour physician/qhp time Mohsen Sarabia Work Phone: Start: 09-07-2018 End: 09-08-2018 BYPASS PERONEAL FEMORAL Mohsen Hunt er Work Phone: Start: 09-07-2018 APTT - reference Vianca Franco Work Phone: Start: 09-07-2018 Radiologic exam chest single view Vianca Franco Work Phone: Start: 09-07-2018 APTT - reference Ben Hahn Work Phone: Start: 09-07-2018 Basic metabolic 2000 panel - Serum or Plasma Miryam Rincon Work Phone: Start: 09-07-2018 Complete blood count (hemogram) panel - Blood by Automated count Miryam Rincon Work Phone: Start: 09-07-2018 INR in Platelet poor plasma by Coagulation assay Miryam Rincon Work Phone: Start: 09-07-2018 APTT - reference Vianca Franco Work Phone: Start: 09-06-2018 Blood group typing Mohsen Sarabia Work Phone: Start: 09-06-2018 Complete blood count (hemogram) panel - Blood by Automated count Tiana Em Work Phone: Start: 09-06-2018 Blood type and Indirect antibody screen panel - Blood Pacodeanna Erin Dianelyskeith Work Phone: Start: 09-06-2018 Dup-scan xtr veins unilateral/limited study Esau Alejandro Work Phone: Start: 09-06-2018 Basic metabolic 2000 [...] aPTT in Blood by Coagulation assay Tiana Em Work Phone: Start: 09-05-2018 Complete blood count (hemogram) panel - Blood by Automated count Tiana Em Work Phone: Start: 09-05-2018 FRIEDMAN TOP Tiana Em Work Phone: Start: 09-05-2018 LIGHT GREEN TOP Tiana Em Work Phone: Start: 09-05-2018 MINT GREEN TOP Tiana Em Work Phone: Start: 09-05-2018 PINK TOP Tiana Em Work Phone: Start: 09-05-2018 RAINBOW DRAW Tiana Em Work Phone: Start: 09-05-2018 12 lead ECG Tiana Em Work Phone: Start: 10-05-2010 Cystoscope, device (physical object) BRENNA MOSQUERA Start: 08-11-2010 Brachytherapy BRENNA MOSQUERA Start: 06-25-2010 Transrectal biopsy of prostate using ultrasound guidance BRENNA MOSQUERA Amputation of left foot SANDHYA CHRIS MOSQUERA Ankle Surgery BRENNA MOSQUERA Coronary artery bypass graft BRENNA MOSQUERA History of amputation of foot 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) Mikey Mcguire MD Work Phone: History of amputation of foot 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) Zoë BROWER Work Phone: Placement of stent i n cardiac conduit BRENNA MOSQUERA Comment on above: x7 Plan of Treatment Date Care Activity Detail Author Start: 09-30-2029 DTaP/Tdap/Td vaccine (2 - Td or Tdap) DTaP/Tdap/Td vaccine (2 - Td or Tdap) [facility] Start: 09-30-2029 Tetanus vaccination [facility] Start: 03-15-2026 Depression screening using PHQ-9 (Patient Health Questionnaire 9) score Depression Screening/Follow-Up (PHQ-2/9) [facility] Start: 04-28-2025 Influenza vaccination Influenza Vacc ine (#1) [facility] Start: 04-26-2025 Medicare Annual Well ness (AWV) Medicare Annual Wellness (AWV) [facility] Start: 04-24-2025 End: 04-24-2025 Patient encounter procedure 04/24/2025 1:00 PM EDT Office Visit [facility] [address] [facility] [address] [place] [phone] Emmanuel Gonzalez DPM [address] [facility] [address] [place] [address] [facility] Start: 04-14-2025 End: 04-14-2026 MR Foot - right WO contrast MR foot right wo IV contrast Imaging Routine Osteomyelitis of right foot, unspecified type (HCC) Expected: 04/14/2025, Expires: 04/14/2026 [facility] Work Phone: Comment on above: Expected: 04/14/2025 , Expires: 04/14/2026 Start: 04-08-2025 End: 04-08-2026 SUPERFICIAL WOUND (HTRX) SUPERFICIAL WOUND (HTRX) Lab Routine Ischemic toe ulcer, right, with 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) Expected: 04/08/2025 (Approximate), Expires: 04/08/2026 [facility] Work Phone: Comment on above: Expected: 04/08/2025 (Approximate), Expires: 04/08/2026 Start: 04-08-2025 End: 04-08-2025 Patient encounter procedure 04/08/2025 11:30 AM EDT Office Visit [facility] [place] [facility] [address] [facility] [address] [place] [phone] oZë King PA [address] [place] [address] Arrived [facility] [place] D[facility] Nadya Comment on above: Arrived Start: 03-14-2025 End: 03-14-2025 Patient encounter procedure [facility] Start: 03-12-2025 [facility] Start: 03-12-2025 [facility] Start: 01-09-2025 End: 01-09-2026 Bacteria identified in [...] Office Visit [facility] [address] [facility] [address] [place] [phone] Bhaskar Wilson, SHRUB GROWER [address] [facility] [address] [place] [address] Arrived [facility] Comment on above: Arrived Start: 11-04-2024 End: 11-04-2024 Patient encounter procedure 11/04/2024 10:45 AM EDT Office Visit [facility] [address] [facility] [address] [place] [address] Flash Lovelace MD [address] [facility] [address] [place] [address] [facility] Start: 08-12-2024 End: 08-12-2024 Patient encounter procedure 08/12/2024 1:30 PM EST Office Visit [facility] [address] [place] [address] Flash Lovelace MD [address] [place] [address] [facility] Start: 07-29-2024 End: 07-29-2024 Patient encounter procedure 07/29/2024 10:00 AM EST Office Visit [facility] [address] [place] [address] Flash Lovelace MD [address] [place] [address] [facility] Start: 06-06-2024 History and physical examination, annual for health maintenance Wellness Visit [facility] Start: 06-06-2024 Medicare Annual Well ness (AWV) Medicare Annual Wellness (AWV) [facility] Start: 06-06-2024 Medicare Wellness Visit Medicare Wel lness Visit [facility] Start: 05-21-2024 End: 05-21-2024 Patient encounter procedure 05/21/2024 1:00 PM EDT Office Visit [facility] [address] [place] [address] Zoë King PA [address] [place] [address] Arrived [facility] Comment on above: Arrived Start: 04-28-2024 COVID-19 Vaccine ( season) COVID-19 Vaccine ( season) [facility] Start: 04-28-2024 Influenza vaccination Influenza Vacc ine (#1) [facility] Start: 04-26-2024 End: 04-26-2024 Patient encounter procedure 04/26/2024 9:30 AM EDT Office Visit [facility] [address] [place] [address] Zoë King, PA [address] [place] [address] Arrived [facility] Comment on above: Arrived Start: 10-12-2023 [facility] Start: 08-09-2023 End: 08-09-2023 Patient encounter procedure [facility] Start: 07-13-2023 End: 07-13-2023 Patient encounter procedure 07/13/2023 Office Visit Orthopaedics Melida Sacr, ART DEPARTMENT HEAD-NEON SIGN MECHANIC [address] [place] [address] [facility] Start: 05-16-2023 End: 07-15-2024 Ultrasound ankle / brachial indices extremity complete Ultrasound ankle / brachial indices extremity complete Vascular Ultrasound Routine PAD (peripheral artery disease) (HCC) Expected: 05/16/2023, Expires: 07/15/2024 [facility] Work Phone: Comment on above: Expected: 05/16/2023 , Expires: 07/15/2024 Start: 05-16-2023 End: 07-15-2024 US Duplex Bypass Graft Left LE US Duplex Bypass Graft Left LE Vascular Ultrasound Routine PAD (peripheral artery disease) (HCC) Expected: 05/16/2023, Expires: 07/15/2024 [facility] Comment on above: Expected: 05/16/2023 , Expires: 07/15/2024 Start: 04-28-2023 COVID-19 Vaccine ( season) COVID-19 Vaccine ( season) [facility] Start: 04-28-2023 COVID-19 VACCINE ( season) COVID-19 VACCINE ( season) [facility] Start: 04-28-2023 Influenza vaccination Sequenti al Influenza Vaccine (#1) [facility] Start: 10-30-2022 Annual Wellness Visi t (AWV) Annual Wellness Visit (AWV) [facility] Start: 07-14-2022 End: 07-14-2022 Patient encounter procedure 07/14/2022 Office Visit Orthopaedics Scar Ortega, ART DEPARTMENT HEAD-NEON SIGN MECHANIC [address] [place] [address] [facility] Start: 05-25-2022 End: 07-25-2023 Carotid artery doppler assessment Carotid Duplex Vascular Ultrasound Routine Bilateral carotid artery stenosis Expected: 05/25/2022, Expires: 07/25/2023 [facility] Work Phone: Comment on above: Expected: 05/25/2022 , Expires: 07/25/2023 Start: 05-23-2022 End: 05-23-2022 Patient encounter procedure 05/23/2022 Office Visit Pulmonology Wagner Moon MD [address] [place] [address] [facility] Start: 05-11-2022 End: 02-25-2023 CT of chest without contrast CT Chest Without Contrast Imaging Routine Pulmonary nodule Expected: 05/11/2022, Expires: 02/25/2023 [facility] Work Phone: Comment on above: Expected: 05/11/2022 , Expires: 02/25/2023 Start: 05-11-2022 End: 05-11-2022 Patient encounter procedure 05/11/2022 Appointment Radiology Wagner Moon MD [address] [place] [address] [facility] CT Scan Start: 04-28-2022 Influenza vaccination Sequenti al Influenza Vaccine (#1) [facility] Start: 04-25-2022 [facility] Work Phone: Start: 01-19-2022 End: 01-19-2022 Patient encounter procedure [facility] Start: 01-12-2022 End: 01-12-2022 Patient encounter procedure 01/12/2022 Office Visit Orthopaedics Dashawn Silvestre MD [address] [place] [address] [facility] Start: 11-29-2021 End: 11-29-2021 ambulatory 11/29/2021 Rehab Services Visit Physical Therapy Dashawn Silvestre MD [address] [place] [address] Andree Cronin, PT [address] [place] [address] [facility] [place] Start: 11-04-2021 COVID-19 Vaccine (4 - Booster for Moderna series) COVID-19 Vaccine (4 - Booster for Moderna series) [facility] Start: 11-04-2021 COVID-19 Vaccine (4 - Moderna series) COVID-19 Vaccine (4 - Moderna series) [facility] Start: 10-08-2021 History and physical examination, annual for health maintenance Wellness Visit [facility] Start: 04-28-2021 Influenza vaccination Sequenti al Influenza Vaccine (#1) [facility] Start: 04-06-2021 End: 06-06-2022 Carotid artery doppler assessment Carotid Duplex Vascular Ultrasound Routine Bilateral carotid artery stenosis Expected: 04/06/2021, Expires: 06/06/2022 [facility] Comment on above: Expected: 04/06/2021 , Expires: 06/06/2022 Start: 04-06-2021 End: 06-06-2022 Ultrasound ankle / brachial indices extremity complete Ultrasound ankle / brachial indices extremity complete Vascular Ultrasound Routine PAD (peripheral artery disease) (HCC) Expected: 04/06/2021, Expires: 06/06/2022 [facility] Comment on above: Expected: 04/06/2021 , Expires: 06/06/2022 Start: 04-06-2021 End: 06-06-2022 Ultrasound duplex arterial leg left Ultrasound duplex arterial leg left Vascular Ultrasound Routine PAD (peripheral artery disease) (HCC) Expected: 04/06/2021, Expires: 06/06/2022 [facility] Comment on above: Expected: 04/06/2021 , Expires: 06/06/2022 Start: 03-30-2021 COVID-19 VACCINE (3 - Booster for Moderna series) COVID-19 VACCINE (3 - Booster for Moderna series) [facility] Start: 12-23-2020 COVID-19 Vaccine (3 - Booster for Moderna series) COVID-19 Vaccine (3 - Booster for Moderna series) [facility] Start: 09-30-2020 History and physical examination, annual for health maintenance Wellness Visit [facility] Start: 04-28-2020 Influenza vaccinatio n given Sequential Influenza Vaccine (#1) [facility] Start: 10-21-2019 End: 10-21-2019 Appointment 10/21/2019 Appointment Radiology Mohsen Sarabia MD [address] [place] [address] [phone] [facility] Start: 04-28-2019 Influenza vaccinatio n given SEQUENTIAL INFLUENZA VACCINE (#1) [facility] Start: 03-18-2019 End: 03-18-2019 Appointment 03/18/2019 Appointment Cardiology Mohsen Sarabia MD [address] [place] [address] [phone] [facility] Start: 11-01-2018 End: 11-01-2018 Appointment [facility] Start: 10-31-2018 End: 10-31-2018 Appointment [facility] Start: 10-25-2018 End: 10-25-2018 Office Visit 10/25/2018 Office Visit Wound Care Flynn Mann DPM [address] [place] [address] [phone] [facility] Start: 10-10-2018 End: 10-10-2018 Follow-Up 10/10/2018 Follow-Up Cardiothoracic Surgery Mohsen Sarabia MD [address] [place] [address] [phone] [facility] Start: 10-04-2018 End: 10-04-2018 Office Visit 10/04/2018 Office Visit Wound Care Flynn Mann DPM [address] [place] [address] [facility] Start: 10-03-2018 End: 10-03-2018 Follow-Up 10/03/2018 Follow-Up Cardiothoracic Surgery Mohsen Sarabia MD [address] [facility] [address] [place] [address] [phone] [facility] Start: 09-20-2018 End: 09-20-2018 Office Visit 09/20/2018 Office Visit Wound Care Flynn Mann, DPM [address] [place] [address] [phone] [facility] Start: 04-28-2018 Influenza vaccinatio n given SEQUENTIAL INFLUENZA VACCINE (#1) [facility] Start: 05-18-2016 Pneumococcal vaccination PNEUM OCOCCAL VACCINE AGE 65+ (2 of 2 - PPSV23) [facility] Start: 07-13-2015 Pneumococcal Vaccine : Age 50+ (2 of 2 - PPSV23) Pneumococcal Vaccine: Age 50+ (2 of 2 - PPSV23) [facility] Start: 07-13-2015 Pneumococcal Vaccine : Age 50+ (2 of 2 - PPSV23, PCV20, or PCV21) Pneumococcal Vaccine: Age 50+ (2 of 2 - PPSV23, PCV20, or PCV21) [facility] Start: 07-13-2015 Pneumococcal Vaccine : Age 65+ (1 of 2 - PPSV23) Pneumococcal Vaccine: Age 65+ (1 of 2 - PPSV23) [facility] Start: 07-13-2015 Pneumococcal Vaccine : Age 65+ (2 - PPSV23 or PCV20) Pneumococcal Vaccine: Age 65+ (2 - PPSV23 or PCV20) [facility] Start: 07-13-2015 Pneumococcal Vaccine : Age 65+ (2 of 2 - PPSV23 or PCV20) Pneumococcal Vaccine: Age 65+ (2 of 2 - PPSV23 or PCV20) [facility] Start: 07-13-2015 Pneumococcal Vaccine : Age 65+ (2 of 2 - PPSV23) Pneumococcal Vaccine: Age 65+ (2 of 2 - PPSV23) [facility] Start: 2014 Respiratory Syncytia l Virus Immunization: Risk, 60-74 Risk, or 75+ (1 - 1-dose 75+ series) Respiratory Syncytial Virus Immunization: Risk, 60-74 Risk, or 75+ (1 - 1-dose 75+ series) [facility] Start: 01-04-2004 Fall risk assessment [facility] Start: 01-04-2004 Pneumococcal vaccination [facility] Start: 1989 Administration of he rpes zoster vaccine ZOSTER VACCINES (1 of 2) [facility] Start: 1989 Shingles vaccine (1 of 2) [facility]ingles vaccine (1 of 2) [facility] Start: 1989 Zoster vaccine hzv l tatum for subcutaneous use ZOSTER (SHINGLES) VACCINE (1 of 2) [facility] Start: 01-04-1984 Colonoscopy COLORECTAL CAN CER SCREENING DISCUSSION [facility] Start: 01-04-1984 Screening for malign ant neoplasm of colon COLORECTAL CANCER SCREENING DISCUSSION [facility] Start: 1958 Third diphtheria, tetanus and acellular pertussis (DTaP) vaccination TDAP (ADULT) [facility] Start: 1957 Tetanus vaccination [facility] Start: 1951 Adolescent depressio n screening assessment Depression Screening (PHQ9) [facility] Start: 1951 COVID-19 Vaccine (1) COVID-19 Vaccin e (1) [facility] Start: 1951 Depression Screen Depression Screen [facility] Start: 1951 Depression screening using PHQ-9 (Patient Health Questionnaire 9) score [facility] Start: 1949 Lipid panel Lipids [facility] Start: 1945 Pneumococcal vaccination PNEUM OCOCCAL VACCINE SERIES (1 - PCV) [facility] Start: 1942 History and physical examination, annual for health maintenance Wellness Visit [facility] Start: 1939 COVID-19 VACCINE (#1) COVID-19 VACCI NE (#1) [facility] Start: 1939 Fall risk assessment Falls Risk Asse ssment [facility] Start: 1939 Tetanus vaccination [facility] Bacteria identified in Blood by Culture Blood Culture Aerobic/Anaerobic Microbiology Routine 01/18/2022 9:05 PM EDT [facility] Work Phone: End: 01-08-2023 CT of chest without contrast CT Chest Without Contrast Imaging Routine Community acquired pneumonia of left lower lobe of lung 1 Occurrences starting 11/08/2022 until 01/08/2023 [facility] Work Phone: Comment on above: 1 Occurrences starti ng 11/08/2022 until 01/08/2023 Patient Education [facility] Work Phone: Patient referral [facility] Work Phone: Transfusion of red b lood cells Transfuse RBC STAT 09/11/2018 6:52 PM EST [facility] End: 09-20-2019 X-ray of left ankle XR Ankle Left 3+ Views (Standard) Routine Critical lower limb ischemia 1 Occurrences starting 09/20/2018 until 09/20/2019 [facility] Comment on above: 1 Occurrences starti ng 09/20/2018 until 09/20/2019 X-ray of left ankle XR Ankle Lef t 3+ Views (Standard) Routine Critical lower limb ischemia 09/20/2018 3:30 PM [facility] End: 09-20-2019 X-ray of left foot XR Foot Left 3+ Views (Standard) Routine Critical lower limb ischemia 1 Occurrences starting 09/20/2018 until 09/20/2019 [facility] Comment on above: 1 Occurrences starti ng 09/20/2018 until 09/20/2019 X-ray of left foot XR Foot Left 3+ Views (Standard) Routine Critical lower limb ischemia 09/20/2018 3:29 PM [facility] XR Pelvis and Hip - right Views XR HIP WITH PELVIS RIGHT Imaging Routine Pain in prosthetic joint, subsequent encounter 11/24/2021 9:21 AM EDT [email or web address] XR Pelvis and Hip - right Views XR HIP WITH PELVIS RIGHT Imaging Routine Hx of total hip arthroplasty, right 01/12/2022 8:59 AM EDT [facility] XR Pelvis and Hip - right Views XR HIP WITH PELVIS RIGHT Imaging Routine Hx of total hip arthroplasty, right 07/14/2022 10:44 AM EST [facility] XR Pelvis and Hip - right Views XR HIP WITH PELVIS RIGHT Imaging Routine Hx of total hip arthroplasty, right 08/10/2023 10:49 AM EST [facility] Immunizations Immunization Date Immunization Notes Care Provider [facility] 08-12-2024 Influenza, High-dose Seasonal, Quadrivalent, Preservative Free Flash Lovelace MD Work Phone: [facility] 08-12-2024 influenza virus vacc ine, unspecified formulation Ludivina Garcia RN [facility] 06-06-2023 influenza virus vacc ine, unspecified formulation BRENNA JAY [facility] 06-06-2023 Influenza, High-dose Seasonal, Quadrivalent, Preservative Free Zoë Hemmer PA Work Phone: [facility] 05-31-2022 influenza virus vacc ine, unspecified formulation BRENNA JAY [facility] 05-31-2022 Influenza, High-dose Seasonal, Quadrivalent, Preservative Free Zoë Hemmer PA Work Phone: [facility] 09-09-2021 SARS-CoV-2 (COVID-19 ) mRNA-1273 vaccine BRENNA JAY [facility] 06-21-2021 influenza virus vacc ine, unspecified formulation BRENNA JAY [facility] 06-21-2021 influenza, high dose seasonal, preservative-free Zoë Hemmer PA Work Phone: [facility] 10-28-2020 SARS-CoV-2 (COVID-19 ) mRNA-1273 vaccine BRENNA JAY [facility] 10-08-2020 pneumococcal polysaccharide vaccine, 23 valent BRENNA JAY [facility] 09-30-2020 SARS-CoV-2 (COVID-19 ) mRNA-1273 vaccine BRENNA JAY [facility] Comment on above: Result Comment: 2023: [id number] 06-02-2020 influenza virus vacc ine, unspecified formulation BRENNA JAY [facility] 06-02-2020 influenza, high dose seasonal, preservative-free Zoë Hemmer PA Work Phone: [facility] 05-28-2020 influenza virus vacc ine, unspecified formulation BRENNA JAY [facility] 05-28-2020 influenza, seasonal, injectable Zoë Hemmer PA Work Phone: [facility] 05-28-2020 pneumococcal conjuga te vaccine, 13 valent BRENNA JAY [facility] 09-30-2019 tetanus toxoid, redu cole diphtheria toxoid, and acellular pertussis vaccine, adsorbed BRENNA JAY [facility] 06-18-2019 influenza virus vacc ine, unspecified formulation BRENNA JAY [facility] 06-18-2019 Seasonal trivalent influenza vaccine, adjuvanted, preservative free Mohsen Sarabia [facility] 06-06-2018 influenza virus vacc ine, unspecified formulation BRENNA JAY [facility] 06-06-2018 influenza, high dose seasonal, preservative-free Mohsen Sarabia [facility] 06-06-2018 Influenza, High-dose Seasonal, Quadrivalent, Preservative Free Zoë Hemmer PA Work Phone: [facility] 05-22-2017 influenza virus vacc ine, unspecified formulation BRENNA JAY [facility] 05-22-2017 influenza, injectabl e, quadrivalent, contains preservative Mohsen Sarabia [facility] 07-11-2016 influenza, injectabl e, quadrivalent, preservative free Zoë Hemmer PA Work Phone: [facility] 05-18-2015 influenza virus vacc ine, unspecified formulation BRENNA JAY [facility] 05-18-2015 influenza, high dose seasonal, preservative-free Mohsen Sarabia [facility] 05-18-2015 pneumococcal conjuga te vaccine, 13 valent Mohsen Sarabia [facility] pneumococcal vaccine , unspecified formulation Mohsen Sarabia MD Work Phone: [facility] pneumococcal vaccine , unspecified formulation Uri Voss DO Work Phone: [facility] Payers Date Payer Category Payer Self-pay [id number] 2024 Unknown [id number] 2019 Private Health Insurance [id number] 2017 Medicare HUMANA MANAGED M [employer] HU[employer]NA MCR ADVANTAGE CHOICE PPO xxxxxxxxx 2017-Present xxxxxxxxx [id number] 2017 Medicare HUMANA MANAGED M [employer]ICARE HU[employer]NA MCR ADVANTAGE CHOICE PPO [id number] 2017-Present [id number] [id number] 2017 Medicare [id number]. [id number] 2017 Medicare (Managed Care) HUMANA M EDICARE ADVANTAGE [id number] 2017 Medicare PPO [id number] [id number]. [id number] 1959 Unknown [id number] 1939 Unknown [id number] 2.16.840.1.615850.3.579. 2.903 1939 Unknown [id number] 2.16.840.1.728713.3.579. 2.902 1939 Unknown [id number] 2.16.840.1.019398.3.579. 2.903 1939 Unknown [id number] 2.16.840.1.968899.3.579. 2.903 1939 Unknown [id number] 2.16.840.1.818516.3.579. 2.754 1939 Unknown [id number] 2.16.840.1.829332.3.579. 2.593 1939 Unknown [id number] 2.16.840.1.219590.3.579. 2.593 1939 Unknown [id number] 2.16.840.1.651681.3.579. 2.593 1939 Unknown [id number] 2.16.840.1.808984.3.579. 2.593 1939 Unknown [id number] 2.16.840.1.421681.3.579. 2.983 1939 Unknown [id number] 2.16.840.1.661683.3.579. 2.983 1939 Unknown [id number] 2.16.840.1.805472.3.579. 2.727 1939 Unknown [id number] 2.16.840.1.207209.3.579. 2.173 1939 Unknown [id number] 2.16.840.1.677987.3.579. 2.1259 1939 Unknown [id number] 2.16.840.1.286540.3.579. 2.1258 1939 Unknown [id number] 2.16.840.1.585953.3.579. 2.1258 1939 Unknown [id number] 2.16.840.1.945866.3.579. 2.1258 1939 Unknown [id number] 2.16.840.1.467012.3.579. 2.1258 1939 Unknown [id number] 2.16.840.1.929079.3.579. 2.1258 1939 Unknown [id number] 2.16.840.1.947105.3.579. 2.1258 1939 Unknown [id number] 2.16.840.1.402045.3.579. 2.1258 1939 Unknown [id number] 2.16.840.1.144227.3.579. 2.1258 1939 Unknown [id number] 2.16.840.1.743084.3.579. 2. 1939 Unknown [id number] 2.16.840.1.887980.3.579. 2. 1939 Unknown [id number] 2.16.840.1.068170.3.579. 2. 1939 Unknown [id number] 2.16.840.1.648060.3.579. 2. 1939 Unknown [id number] 2.16.840.1.972026.3.579. 2. 1939 Unknown [id number] 2.16.840.1.173078.3.579. 2. 1939 Unknown [id number] 2.16.840.1.345933.3.579. 2. 1939 Unknown [id number] 2.16.840.1.692328.3.579. 2.903 1939 Unknown [id number] 2..840.1.093454.3.579. 2.903 Unknown HCAP/HFA/FAP Active [id number] Unknown [id number] 2.16.840.1.136906.3.579. 2.531 Unknown [id number] 2.16.840.1.033508.3.579. 2.531 Unknown [id number] 2.16.840.1.057353.3.579. 2.531 Social History Date Type Detail Facility Start: 09-10-2018 End: 06-21-2024 Tobacco smoking status NHIS Never smoker [facility] Start: 1940 Sex Assigned At Not on file [facility] Start: 10-09-2019 End: 04-14-2025 Alcohol intake Ex-drinker (finding) [facility] Start: 10-21-2019 End: 06-21-2024 Tobacco use and exposure Never used [facility] Start: 11-24-2021 End: 08-10-2023 Alcohol intake Current non-drinker of alcohol (finding) [facility] Start: 12-11-2021 End: 11-03-2022 Exposure to SARS-CoV-2 (event) Not sure [facility] Start: 09-04-2018 End: 06-21-2024 Cigarette pack-years [facility] Start: 11-30-2022 End: 06-21-2024 Sex Assigned At [facility] Start: 1940 Sex Assigned At Male [facility] Tobacco smoking status Never [facility] Start: 07-16-2018 Gender identity Identifies as male gender (finding) [facility] Start: 09-04-2018 Sexual orientation Heterosexual (finding) [facility] Start: 04-15-2023 Alcohol Comment Coffee [...] Never true [facility] Tobacco smoking stat [facility] Tobacco smoking consumption unknown [employer] Phone: Start: 10-31-2022 History SDOH Alcohol Frequency 1 [email or web address] Work Phone: Start: 10-31-2022 History SDOH Alcohol Std Drinks 0 [employer] Phone: How often do you nee d to have someone help you when you read instructions, pamphlets, or other written material from your doctor or pharmacy [SILS] Rarely [facility] Sex Male (finding) [facility] Medical Equipment Procedure Code Equipment Code Equipment Origin al Text Equipment Identifier Dates Hemostat 2 X 4in Surgicel Fibrillar - [id number] Start: 09-07-2018 Hemostat 2 X 4in Surgicel Fibrillar - [id number] Start: 09-07-2018 Hemostat 2 X 4in Surgicel Fibrillar - [id number] Start: 09-07-2018 Hemostat 2 X 4in Surgicel Fibrillar - [id number] Start: 09-07-2018 Hemostat 2 X 4in Surgicel Fibrillar - [id number] Start: 09-07-2018 Hemostat 2 X 4in Surgicel Fibrillar - [id number] Start: 09-07-2018 Hemostat 2 X 4in Surgicel Fibrillar - [id number] Start: 09-07-2018 Hemostat 2 X 4in Surgicel Fibrillar - [id number] Start: 09-07-2018 Hemostat 2 X 4in Surgicel Fibrillar - [id number] Start: 09-07-2018 Hemostat 2 X 4in Surgicel Fibrillar - [id number] Start: 09-07-2018 Hemostat 2 X 4in Surgicel Fibrillar - [id number] Start: 09-07-2018 Hemostat 2 X 4in Surgicel Fibrillar - [id number] Start: 09-07-2018 Hemostat 2 X 4in Surgicel Fibrillar - [id number] Start: 09-07-2018 Hemostat 2 X 4in Surgicel Fibrillar - [id number] Start: 09-07-2018 Hemostat 2 X 4in Surgicel Fibrillar - [id number] Start: 09-07-2018 Hemostat 2 X 4in Surgicel Fibrillar - [id number] Start: 09-07-2018 Hemostat 2 X 4in Surgicel Fibrillar - [id number] Start: 09-07-2018 Hemostat 2 X 4in Surgicel Fibrillar - [id number] Start: 09-07-2018 [place] Altrx Polyethylene Acetabular Liner Neutral 36mm Id 62mm Od [id number] Start: 07-15-2021 Angio-Seal 6f Vi p - [id number] FDA Start: 08-09-2018 [place] Lv 1x40 Single - [id number] Start: 07-15-2021 Hemostat 2 X 4in Surgicel Fibrillar - [id number] Start: 03-17-2025 Sealant 10ml Hemostatic Matrix Fast Prep Floseal W/Recothrom - [id number], [id number] FDA Start: 03-17-2025 Goals Date Patient Goal [...] Health Quest ionnaire 2 item (PHQ-2) [Reported] [facility] 04-08-2025 Patient Health Quest ionnaire 2 item (PHQ-2) [Reported] [facility] 03-31-2025 Patient Health Quest ionnaire 2 item (PHQ-2) [Reported] [facility] 01-09-2025 Patient Health Quest ionnaire 2 item (PHQ-2) [Reported] [facility] 12-26-2023 Functional Status N/A [facility] 12-20-2022 Functional Status N/A [facility] Clinical Notes 11-24-2021 to 04-29-2025 Telephone Encounter - LEONARDA Villavicencio - 04/29/2025 9:54 PM EDTTelephone Encounter - LEONARDA Villavicencio - 04/29/2025 9:54 PM EDTMohsen Sarabia MD - 04/23/2025 3:00 PM EDTDischarge Instructions Note Date & Type Note Facility 04-29-2025 Telephone encounter Note Metoprolol sent. [facility] 04-29-2025 Miscellaneous Notes Metoprolol sent. documented in this encounter [facility] 04-23-2025 Note I saw Mr. Powell in of [facility] today for a follow-up visit. He is an 85-year-old gentleman well-known to me in whom I did a right SFA to peroneal bypass using left cephalic vein about 1mo ago. L fem tib remotely by me for similar circumstance. This was performed for chronic limb threatening ischemia with early ischemic changes to the hallux which ultimately developed ulceration and osteo with exposed bone. He is now on oral abx, doing wound care under the care of a transportation dispatcher. He is on his ASA, xarelto and statin. BP (!) 162/72 (BP Location: Left arm, Patient Position: Sitting, BP Cuff Size: X-large Adult) Pulse 64 Resp 16 Ht 6' 2 Wt 111.1 kg (245 lb) SpO2 97% BMI 31.46 kg/m NAD Breathing comfortably Feet WWP R hallux [...] Ok to have done close to home. AUTHENTICATED BY MOHSEN SARABIA, ON 04/23/2025 15:06:32 [facility] 04-23-2025 History of Present illness Narrative I saw Mr. Powell in office today for a follow-up visit. He is an 85-year-old gentleman well-known to me in whom I did a right SFA to peroneal bypass using left cephalic vein about 1mo ago. L fem tib remotely by me for similar circumstance. This was performed for chronic limb threatening ischemia with early ischemic changes to the hallux which ultimately developed ulceration and osteo with exposed bone. He is now on oral abx, doing wound care under the care of a transportation dispatcher. He is on his ASA, xarelto and statin. BP (!) 162/72 (BP Location: Left arm, Patient Position: Sitting, BP Cuff Size: X-large Adult) Pulse 64 Resp 16 Ht 6' 2 Wt 111.1 kg (245 lb) SpO2 97% BMI 31.46 kg/m NAD Breathing comfortably Feet WWP R hallux [...] close to home. documented in this encounter [facility] 04-21-2025 Telephone encounter Note Patient requests Zofran refilled [facility] 04-21-2025 Miscellaneous Notes Patient requests Zofran refilled documented in this encounter [facility] 04-14-2025 History of Present illness Narrative Associated [...] 2009 Avascular necrosis of bone of hip ([facility]) 09/04/2011 Right hip Right hip CAD (coronary artery disease) 2013 Carotid artery disease Cataract 2014 Cellulitis 01/19/2022 [facility] Cellulitis LLE Colon polyps 2012 Critical lower limb ischemia ([facility] 09/04/2018 Last Assessment & Plan: Pt s/p LLE angiogram with Dr Hahn who feels that the pt has no further endovascular options. He has consulted Dr. Sarabia for a possible tibial bypass. Pt s/p LLE critical limb ischemia [place] class 4 rest pain with distal discoloration to his toes Gangrene of left foot ([facility]) 10/04/2018 Groin hematoma 2014 RT Femoral groin Hematoma H/O myocardial perfusion scan 07/09/2019 LVEF 56% Myocardial perfusion imaging shows a defect in Apical wall Herpes zoster 09/04/2011 History of being hospitalized 12/06/2020 Strep Pneumonia, Resp. Failure - [facility] History of being hospitalized [place] - [facility] 07/15/2021-07/16/2021 History of coronary angiogram [...] SOB (shortness of breath) Unstable angina (HCC) 2013 XR 06/18/2019 XR shows impingement to [...] incomplete bowel prep Diverticulosis Dr. Rowe at [facility] COLONOSCOPY W/ POLYPECTOMY 2011 CORONARY ARTERY BYPASS GRAFT 11/09/2016 x3 CHAVEZ to diag, SVG to OM1, SVG to PDA CT ANGIOGRAM CHEST 12/17/2016 CT ANGIOGRAM CHEST 12/17/2016 FEMORAL BYPASS 09/07/2018 Left fem to peroneal bypass Dr. Sarabai FEMORAL BYPASS 03/14/2025 right SVG FOOT AMPUTATION Left 10/08/2018 mid foot HEART CATH 11/07/2016 Heart Cath. Blockage OTHER SURGICAL HISTORY brachytherapy OTHER SURGICAL HISTORY open reduction internal fixation OTHER SURGICAL HISTORY 08/09/[address] Vogt OTHER SURGICAL HISTORY 04/25/2022 Diagnostic LE catheterization Dr. Hahn [place] MEDICATION MANAGEMENT 11/2020 Multi resistant Strep Pneumonia, [...] of right foot (HCC) Relevant Orders MR galindo right wo IV contrast No follow-ups on file. documented in this encounter [facility] 04-09-2025 Telephone encounter Note The incorrect test was run through [facility]. They said they did not receive the order electronically and then entered in the wrong test. They will fax a correction form that I have to sign, then the correct test will be run. She stated he will only be charged for the test that I ordered, not the add on that they ran in error. Spoke with Deena at [facility]. [facility] 04-09-2025 Miscellaneous Notes The incorrect test was run through [facility]. They said they did not receive the order electronically and then entered in the wrong test. They will fax a correction form that I have to sign, then the correct test will be run. She stated he will only be charged for the test that I ordered, not the add on that they ran in error. Spoke with Deena at [facility]. documented in this encounter [facility] 04-08-2025 History of Present illness Narrative Images [...] since the toenail came off. States Mohsen Walker did see his toe, but the toenail [...] 2009 Avascular necrosis of bone of hip ([facility]) 09/04/2011 Right hip Right hip CAD (coronary artery disease) 2013 Carotid artery disease Cataract 2014 Cellulitis 01/19/2022 [facility] Cellulitis LLE Colon polyps 2012 Critical lower limb ischemia ([facility]) 09/04/2018 Last Assessment & Plan: Pt s/p LLE angiogram with Dr Hahn who feels that the pt has no further endovascular options. He has consulted Dr. Sarabia for a possible tibial bypass. Pt s/p LLE critical limb ischemia [place] class 4 rest pain with distal discoloration to his toes Gangrene of left foot ([facility]) 10/04/2018 Groin hematoma 2014 RT Femoral groin Hematoma H/O myocardial perfusion scan 07/09/2019 LVEF 56% Myocardial perfusion imaging shows a defect in Apical wall Herpes zoster 09/04/2011 History of being hospitalized 12/06/2020 Strep Pneumonia, Resp. Failure - [facility] History of being hospitalized [place] - [facility] 07/15/2021-07/16/2021 History of coronary angiogram [...] (HCC) 10/2016 Preinfarcation syndrome, CABGx3 Prostate cancer ([facility]) 2009 SOB (shortness of breath) Unstable angina ([facility]) 2014 XR 06/18/2019 XR shows impingement to [...] incomplete bowel prep Diverticulosis Dr. Rowe at [facility] COLONOSCOPY W/ POLYPECTOMY 2011 CORONARY ARTERY [...] HISTORY 04/25/2022 [address] LE catheterization Dr. Hahn [place] MEDICATION MANAGEMENT 11/2020 Multi resistant Strep Pneumonia, [...] Medication Follow Up. documented in this encounter [facility] 04-02-2025 Note I saw Mr. Powell today [...] AUTHENTICATED BY MOHSEN SARABIA, ON 04/02/2025 12:15:56 [facility] Ambulatory 04-02-2025 History of Present illness Narrative [...] OMT. documented in this encounter [facility] 03-31-2025 History of Present illness [...] getting better. Hospital Information ED, Hospital or Assisted Facility Discharge? Hospital Patient has been contacted within two business days of discharge Yes Diagnosis claudication, rightleg pain, PAD Discharge Date 03/21/25 Discharged To: Home Setting Discharge Hospital [facility] Engagement Call Start Time 1226 Admission Date [...] yes What is the home health agency? [facility] Has home health visited the patient [...] had recent balloon angioplasty 03/12/2025,. presented [facility] ED on 03/14/2025 from Vascular Surgery [...] Carotid artery disease Cataract 2014 Cellulitis 01/19/2022 [facility] Cellulitis LLE Colon polyps 2012 Critical lower limb ischemia ([facility]) 09/04/2018 Last Assessment & Plan: Pt s/p LLE angiogram with Dr Hahn who feels that the pt has no further endovascular options. He has consulted Dr. Sarabia for a possible tibial bypass. Pt s/p LLE critical limb ischemia [place] class 4 rest pain with distal discoloration to his toes Gangrene of left foot ([facility]) 10/04/2018 Groin hematoma 2014 RT Femoral groin Hematoma H/O myocardial perfusion scan 07/09/2019 LVEF 56% Myocardial perfusion imaging shows a defect in Apical wall Herpes zoster 09/04/2011 History of being hospitalized 12/06/2020 Strep Pneumonia, Resp. Failure - [facility] History of being hospitalized [place] - [facility] 07/15/2021-07/16/2021 History of coronary angiogram [...] (HCC) 10/2016 Preinfarcation syndrome, CABGx3 Prostate cancer ([facility]) 2009 SOB (shortness of breath) Unstable angina ([facility]) 2014 XR 06/18/2019 XR shows impingement to [...] incomplete bowel prep Diverticulosis Dr. Rowe at [facility] COLONOSCOPY W/ POLYPECTOMY 2011 CORONARY ARTERY [...] HISTORY 04/25/2022 Diagnostic LE catheterization Dr. Hahn [place] MEDICATION MANAGEMENT 11/2020 Multi resistant Strep Pneumonia, [...] for this patient. documented in this encounter [facility] 03-21-2025 History of Present illness Narrative Spiritual Care Progress Note Completed by: Froylan Higgins Person(s) Present During this Visit: Patient Time Spent in Direct Patient Care: 30 Narrative: This Coal Washer Tender visited Tristin while rounding. Pt identifies as rastafarian and finds hope/support in family. Coal Washer Tender provided empathetic listening with supportive presence and compassionate care. Pt shared a narrative of illness and some life experiences. Pt expressed gratitude for cold roll inspector's support and visit. Pt was informed about 20/03 availability of the Chaplains, and how to contact. Pastoral Care Team will remain available to provide emotional and spiritual care support PRN. Patients Response to Pastoral Care: Expressed Gratitude for Visit, Appeared to be well-engaged Planning for Future Visits: PRN Patient's Spiritual Needs Assessment 03/21/25 1600 Visit Background Visit With Patient Visit By Staff Coal Washer Tender Visit Progression Introduction Visit Requested By Coal Washer Tender Initiated Visit Source Coal Washer Tender Initiated Visit Type Inpatient;Rounding Visit Circumstances and Events Routine Visit Visit Length (minutes) 30 Patient's Response to Pastoral Care Expressed Gratitude for Visit;Appeared to be well-engaged Visit Planning PRN Spiritual Assessment Assessed during this visit Rastafarian Assessment Assessed during this visit Family assessment provided? Unable to asess during this visit Patient Spiritual Needs Assessment Sources of Connection Son;Daughter;Other (see comment) (family) Belief Practices Attends Rastafarian Services Image of the Divine Answers Prayer;Comforter;Creator;Healer; [...] of Care Focus on Wellness;Receive Comfort Patient Rastafarian Needs Assessment Rastafarian Connection Attends as Often as Able Rastafarian Home Sikh Zoroastrianism Connection Non-Zoroastrianism Place of Confucianism - Name Life of [place]ik[place] Rastafarian Resources Hope/Trust in God;Prayer Rastafarian Rituals [place];Prayer Expressed Outcome Expressed Gratitude;Expressed Hope Rev. 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 and installer Therapy Services Needed After Discharge: Yes Intensity of boat canvas maker and installer Therapy: Up to 5 days per week Anticipated Duration of boat canvas maker and installer Therapy: Duration 7 - 10 days PT [...] - Static: Contact guard assist, with device Director Inbound Sales - Standing Static: wheeled walker Standing Balance - Dynamic: Contact guard assist, with device Director Inbound Sales - Standing Dynamic: wheeled walker Skilled Intervention [...] (Seated EOB post session with nursing notified) Director Inbound Sales: bedrails, bed positioning mechanics Skilled Intervention Provided: [...] Lateral Transfers: Contact guard assist, Minimal assist Director Inbound Sales: wheeled walker Skilled Intervention Provided: verbal cues, [...] secondary impairment(s) Car Transfers: Contact guard assist Director Inbound Sales: wheeled walker Skilled Intervention Provided: verbal cues, [...] walker.) Prior Level of Function Level of [place] - Transfers/Ambulation/Mobility: Independent with functional transfers Level of [place] - ADLs: Independent Level of [place] - Homemaking: Independent Driving: Patient drives Vocational: [...] of : 1940 Discharge Plan: D/C Disposition: Assisted Facility Related to Current Admission?: Yes Plan A: Home Health Care Services Plan B: Home Discharging Transportation Plan: Transportation Type: Auto Discharge Plan Status: home vs SNF CM following for dc needs. Chart reviewed, patient last able to work with therapy 03/20, current recs are up to 5 with ampac of 19. Patient originally wanted to go home with [facility]. After discussion with attending physician, now open to snf placement. Patient walking 20 feet. Will obtain choices and send referrals. Patient will need precert once med ready. Patient nearing med readiness. If unable to secure SNF will plan for home going plan with [facility], will place hub order for therapy. Will continue to follow as patient progresses medically. Addendum 919: hub order placed for [facility] therapy. One accepted, likely plan for discharge later today once [facility] accepted. Addendum 1551: patient now wanting OP therapy. Order placed, and updated liaison to cancel c order. Patient now med ready for discharge. 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 Therapy Services Needed After Discharge: Yes Intensity of boat canvas maker and installer Therapy: Up to 5 days per week Anticipated Duration of boat canvas maker and installer Therapy: Duration 7 - 10 days PT [...] - Static: Contact guard assist, Minimal assist Director Inbound Sales - Standing Static: wheeled walker Standing Balance - Dynamic: Contact guard assist, Minimal assist Director Inbound Sales - Standing Dynamic: wheeled walker Skilled Intervention [...] to Supine: (Pt ended session in recliner) Director Inbound Sales: bedrails, bed positioning mechanics Transfers Sit to Stand: Moderate assist, 2 person assist (x1 from bed, x1 from toilet, x1 from recliner) Stand Pivot Transfers: Minimal assist Director Inbound Sales: wheeled walker Skilled Intervention Provided: verbal cues, [...] walker.) Prior Level of Function Level of [place] - Transfers/Ambulation/Mobility: Independent with functional transfers Level of [place] - ADLs: Independent Level of [place] - Homemaking: Independent Driving: Patient drives Vocational: [...] Cosigned by Naty Lopez PT at 03/21/2025 12:32 PM EDT [facility] Tristin Powell 1940 [id number] Assessment/Plan: Tristin Hortensia Powell is a 85 y.o. male with a history of Peripheral Artery Disease s/p Bypass, Afib (Xarelto), Diastolic Heart Failure, Coronary Artery Disease s/p CABG, recent balloon angioplasty 03/12/2025,. presented to [facility] ED on 03/14/2025 from Vascular Surgery clinic with intractable right foot pain. Found to have critical right LE ischemia Critical right lower limb ischemia: History of PAD. Follows Dr. Beaver ([facility]) and Dr. Sarabia (Vascular Surgery) [...] S/p IV pain meds. CAD: Followed by [facility] Cardiology s/p 3 vessel coronary artery bypass [...] xarelto Medication Reconciliation: Reviewed using patient interview, account technician Current living situation: home Expected Disposition: [...] major joint deformity: RLE tired leg and shredding machine tender to touch. Moving well with mild [...] CHLORIDE mmol/L 107 108 109* BICARB mmol/L 22 24 19* BUN mg/dL 20 22 18 CREATININE mg/dL 0.97 1.12 1.05 EGFR [...] s/p left fem to peroneal bypass (Jony, Monty), left TMA who presented to [facility] on 03/14/2025 with worsening RLE pain and discoloration. Arterial Duplex (03/14/25): 50-99% stenosis in the right mid SFA YAMILE's (7/18/25): Right YAMILE is 0.50. Left YAMILE is 0.55. CTLI IV Aortic Stenosis -Admitted to medicine -s/p RLE distal SFA to peroneal bypass w/ reversed LUE cephalic vein, completion angio w/ diminutive runoff via peroneal (03/17, Monty) -Regular diet -Continue to encourage UOOB, AAT, IS -Continue ASA 81 -Repeat ABIs this morning -Will discuss with Dr. Sarabia TREV COLEMAN MD General Surgery Resident, PGY-1 [facility] Please contact surgical general internal medicine doctor physician compensation analyst 5PM-6AM and weekends - #[phone] VTS Pager - [phone] Subjective NAEO. Has been ambulating. New bruising [...] IMAGING/LABS Interval imaging and laboratory results reviewed [facility] Inpatient Progress Note 03/19/2025 Tristin Powell 1940 [id number] Assessment/Plan: Tristin Powell is a 85 y.o. male with a history of Peripheral Artery Disease s/p Bypass, Afib (Xarelto), Diastolic Heart Failure, Coronary Artery Disease s/p CABG, recent balloon angioplasty 03/12/2025,. presented to [facility] ED on 03/14/2025 from Vascular Surgery clinic with intractable right foot pain. Found to have critical right LE ischemia Critical right lower limb ischemia: History of PAD. Follows Dr. Beaver ([facility]) and Dr. Sarabia (Vascular Surgery) [...] added, wean as able. CAD: Followed by [facility] Cardiology s/p 3 vessel coronary artery bypass [...] xarelto Medication Reconciliation: Reviewed using patient interview, account technician Current living situation: home Expected Disposition: PT/OT rec up to 5 pt requesting home with [facility], SW following. Estimated discharge date: ~03/20/2025 Medically [...] major joint deformity: RLE tired leg and shredding machine tender to touch. Moving well with mild [...] s/p left fem to peroneal bypass (2019, Monty), left TMA who presented to [facility] on 03/14/2025 with worsening RLE pain and discoloration. Arterial Duplex (03/14/25): 50-99% stenosis in the right mid SFA YAMILE's (03/14/25): Right YAMILE is 0.50. Left YAMILE is 0.55. CTLI IV Aortic Stenosis -Admitted to medicine -s/p RLE distal SFA to peroneal bypass w/ reversed LUE cephalic vein, completion angio w/ diminutive runoff via peroneal (03/17, Monty) -Regular diet -Continue to encourage UOOB, AAT, IS -Continue ASA 81 -Will discuss timing for repeat ABIs -Will discuss with Dr. Sarabia TREV COLEMAN MD General Surgery Resident, PGY-1 [facility] Please contact surgical general internal medicine doctor physician compensation analyst 5PM-6AM and weekends - #[phone] VTS Pager - [phone] Subjective NAEO. Was able to get up [...] Limitations Including: Mechanical Barriers, Social Support Are boat canvas maker and installer Therapy Services Needed After Discharge: Yes Intensity of boat canvas maker and installer Therapy: Up to 5 days per week Anticipated Duration of boat canvas maker and installer Therapy: Duration 10 - 30 days PT [...] Supine: Minimal assist, Head of bed flat Director Inbound Sales: bedrails, patient slide sheet / friction-reducing device, [...] walker.) Prior Level of Function Level of [place] - Transfers/Ambulation/Mobility: Independent with community ambulation, Independent with household ambulation, Independent with functional transfers Level of [place] - ADLs: Independent Level of [place] - Homemaking: Independent Driving: Patient drives Vocational: [...] Arthritis Avascular necrosis of bone of hip ([facility]) Claudication COPD (chronic obstructive pulmonary disease) ([facility]) Coronary artery disease Herpes zoster Hyperlipidemia Hypertension PAD (peripheral artery disease) ([facility]) 01/21/2022 Posterior tibial tendinitis of right leg 11/07/2022 Prostate cancer ([facility]) Vascular disease Past Surgical History: Procedure Laterality Date 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/08/2018 Procedure: LEFT MIDFOOT AMPUTATION; Surgeon: Flynn Mann DPM; Location: [facility] OR; Service: Podiatry ANKLE SURGERY Left BYPASS FEMOROTIBIAL REPAIR/GRAFT Right 03/17/2025 Procedure: RIGHT FEMORAL TO TIBIAL BYPASS WITH ARM VEIN. 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; Service: Cardiovascular CARDIAC SURGERY 2017 triple bypass EGD N/A 10/10/2018 Procedure: ESOPHAGOGASTRODUODENOSCOPY; Surgeon: Ben Jensen MD; [place] [facility] [place]; Service: Gastroenterology EYE SURGERY Right 2014 FOOT SURGERY ORTHOPEDIC SURGERY STENT PLACEMENT For complete objective data, detailed plan of care and patient education refer to: PT Evaluation flowsheet, PT Evaluation and Treatment flowsheet, PT Treatment flowsheet, patient Plan of Care, Plan of Care progress note, and Patient Education. This note stands as the current Discharge Summary upon patient discharge from the hospital or completion of Physical Therapy Plan. [facility] Inpatient Progress Note 03/18/2025 Tristin Powell 1940 [id number] Assessment/Plan: Tristin Powell is a 85 y.o. male with a history of Peripheral Artery Disease s/p Bypass, Afib (Xarelto), Diastolic Heart Failure, Coronary Artery Disease s/p CABG, recent balloon angioplasty 03/12/2025,. presented to [facility] ED on 03/14/2025 from Vascular Surgery clinic with intractable right foot pain. Found to have critical right LE ischemia Critical right lower limb ischemia: History of PAD. Follows Dr. Beaver ([facility]) and Dr. Sarabia (Vascular Surgery) [...] dose. IV Dilaudid added. CAD: Followed by [facility] s/p 3 vessel coronary artery bypass [...] per Medication Reconciliation: Reviewed using patient interview, account technician Current living situation: home Expected Disposition: [...] major joint deformity: RLE tired leg and shredding machine tender to touch. Moving well with mild [...] s/p left fem to peroneal bypass (Jony, Walker), left TMA who presented to [facility] on 03/14/2025 with worsening RLE pain and discoloration. Arterial Duplex (03/14/25): 50-99% stenosis in the right mid SFA YAMILE's (03/14/25): Right YAMILE is 0.50. Left YAMILE is 0.55. CTLI IV Aortic Stenosis -Admitted to medicine -s/p RLE distal SFA to peroneal bypass w/ reversed LUE cephalic vein, completion angio w/ diminutive runoff via peroneal (03/17, Monty) -Diet as tolerated -Discontinue qureshi, yoly -UOOB, AAT, IS -Continue ASA 81 -Will discuss with Dr. Sarabia TREV COLEMAN MD General Surgery Resident, PGY-2 [facility] Please contact surgical general internal medicine doctor physician compensation analyst 5PM-6AM and weekends - #[phone] VTS Pager - [phone] Subjective NAEO. Feels good this morning. Wants [...] s/p left fem to peroneal bypass (Jony, Monty), left TMA who presented to [facility] on 03/14/2025 with worsening RLE pain and [...] Walker MD General Surgery Please contact surgical general internal medicine doctor physician compensation analyst 5PM-6AM and weekends VTS Pager - #[phone] SUBJECTIVE Patient is resting in bed with [...] Auto Discharge Plan Status: Care management following. wd chart. OT recs pending at this time. Pt agreeable to C if recommended and has no agency preference. Per Vasc Surg, pt scheduled for OR today for LLE fem-tib bypass today. Continuing to follow as medical plan evolves. Assessment and Background Information: [facility] Inpatient Progress Note 03/17/2025 Tristin Powell 1940 [id number] Assessment/Plan: Tristin Powell is a 85 y.o. male with a history of Peripheral Artery Disease s/p Bypass, Afib (Xarelto), Diastolic Heart Failure, Coronary Artery Disease s/p CABG, recent balloon angioplasty 03/12/2025,. presented to [facility] ED on 03/14/2025 from Vascular Surgery clinic with intractable right foot pain. Found to have critical right LE ischemia Critical right lower limb ischemia: History of PAD. Follows Dr. Beaver ([facility]) and Dr. Sarabia (Vascular Surgery) [...] dose. IV Dilaudid added. CAD: Followed by [facility]iology s/p 3 vessel coronary artery bypass [...] per Medication Reconciliation: Reviewed using patient interview, account technician Current living situation: home Expected Disposition: [...] closer monitoring. Planning revascularization today. Discussed with [facility] cardiology's physician personally about preop clearance. They [...] major joint deformity: RLE tired leg and shredding machine tender to touch. Moving well with mild [...] PAD, s/p left fem to peroneal bypass (Monty Borges), left TMA who presented to [facility] on 03/14/2025 with worsening RLE pain and [...] Beena Barraza MD General Surgery Resident, PGY-2 [facility] Please contact surgical general internal medicine doctor physician compensation analyst 5PM-6AM and weekends - #[phone] VTS Pager - [phone] Subjective NAEO. Is ready for surgery tomorrow, [...] and rubor. He had undergone angiography in [place], with chronic occlusion of an aneurysm/ectatic right [...] bypass operation. In collaborative vascular discussions with Monty Butler, the family, myself this is felt [...] for bypass operation as the best option. [facility] Inpatient Progress Note 03/16/2025 Tristin Powell 1940 [id number] Assessment/Plan: Tristin Powell is a 85 y.o. male with a history of Peripheral Artery Disease s/p Bypass, Afib (Xarelto), Diastolic Heart Failure, Coronary Artery Disease s/p CABG, Hypertension, CKD III, COPD, Prostate Cancer, and Insomnia. Patient had outpatient angiogram 03/12/25 with balloon angioplasty. He presented to [facility] ED on 03/14/2025 from Vascular Surgery clinic with intractable right foot pain. In ED: right YAMILE 0.5; 50-99% stenosis in right mid superficial femoral artery; WBC 3.5. Course prolonged due to need for angiogram and Xarelto washout. Peripheral Artery Disease: Followed by Dr. Beaver ([facility]) and Dr. Sarabia (Vascular Surgery) [...] additional for acute pain. CAD: Followed by [facility] Cardiology s/p 3 vessel coronary artery bypass [...] GTT Medication Reconciliation: Reviewed using patient interview, account technician Current living situation: home Expected Disposition: [...] major joint deformity: RLE tired leg and shredding machine tender to touch. Moving well with mild [...] 03/16/25 0907 03/14/25 1128 [facility] Tristin Powell 1940 [id number] Assessment/Plan: Tristin Powell is a 85 y.o. male with a history of Peripheral Artery Disease s/p Bypass, Afib (Xarelto), Diastolic Heart Failure, Coronary Artery Disease s/p CABG, Hypertension, CKD III, COPD, Prostate Cancer, and Insomnia. Patient had outpatient angiogram 03/12/25 with balloon angioplasty. He presented to [facility] ED on 03/14/2025 from Vascular Surgery clinic with intractable right foot pain. In ED: right YAMILE 0.5; 50-99% stenosis in right mid superficial femoral artery; WBC 3.5. Course prolonged due to need for angiogram and Xarelto washout. Peripheral Artery Disease: Followed by Dr. Beaver ([facility]) and Dr. Sarabia (Vascular Surgery) [...] additional for acute pain. CAD: Followed by [facility] s/p 3 vessel coronary artery bypass [...] GTT Medication Reconciliation: Reviewed using patient interview, account technician Current living situation: home Expected Disposition: physical therapy / occupational therapy pending, AUDREY consulted. Estimated discharge date: 03/18/2025 Medically Ready [...] major joint deformity: RLE tired leg and shredding machine tender to touch. Moving well with mild [...] Inpatient Follow-up Heart & Vascular [facility] 03/15/2025 Mirna Fenton, [facility] Patient: Tristin Powell Date of : 1940 (85 y.o.) PCP: Flash Lovelace MD Assessment/Plan: Carotid stenosis, asymptomatic, bilateral Assessment & Plan Asymptomatic. No hx of CVA Non-invasive Studies: Carotid Duplex (04/2024): Left ICA with mild <50% stenosis of heterogenous plaque. Right ICA with moderate 50-69% stenosis of heterogenous plaque Coronary artery disease involving coronary bypass graft of [place] heart without angina pectoris Assessment & Plan [...] Recently underwent RLE angio on 03/12/25 via [facility] in [place] Non-invasive Studies: RLE arterial duplex (03/14/25): 50-99% [...] RLE angiograms dated 03/12/25 and 10/12/23 from [facility]. Plan for RLE angio +/- intervention [...] Final Result by Interface, [facility] (03/15/2025 0701) Echocardiogram complete w contrast Final [...] 2 puff 2 puff Inhalation Q4H PRN Muna Otto MD aluminum-magnesium hydroxide-simethicone (MAALOX PLUS) 200-200-20 mg/5 mL suspension 30 mL 30 mL Oral Q4H PRN Muna Otto MD aspirin EC tablet 81 mg 81 mg Oral Daily Demetrice Escobar CNP 81 mg at 03/14/25 1705 atorvastatin (LIPITOR) tablet 80 mg 80 mg Oral Nightly ChaseMuna perez MD 80 mg at 03/14/25 2110 azelastine (ASTELIN) 137 mcg (0.1 %) nasal spray 1 spray 1 spray Each Nare Daily Muna Otto MD calcium carbonate (TUMS) chewable tablet 500 mg 500 mg Oral Daily PRN Chase, Muna Bhatti MD enoxaparin (LOVENOX) syringe 40 mg 40 mg Subcutaneous Daily Chase, Muna Bhatti MD furosemide (LASIX) tablet 20 mg 20 mg Oral Every Other Day Chase, Muna Bhatti MD HYDROmorphone (DILAUDID) injection 0.5 mg 0.5 mg Intravenous Q3H PRN Chase, Muna Bhatti MD 0.5 mg at 03/14/252109 losartan (COZAAR) tablet 50 mg 50 mg Oral Daily with lunch Chase, Muna Bhatti MD melatonin Tab 5 mg 5 mg Oral Nightly PRN Chase, Muna Bhatti MD metoprolol tartrate (LOPRESSOR) tablet 50 mg 50 mg Oral BID Chase, Muna Bhatti MD 50 mg at 03/14/252109 naloxone (NARCAN) injection 0.1 mg 0.1 mg Intravenous PRN Fam, Muna Bhatti MD And naloxone (NARCAN) injection 0.4 mg 0.4 mg Intravenous PRN Chase, Muna Bhatti MD ondansetron (ZOFRAN) injection 4 mg 4 mg Intravenous Q6H PRN Chase, Muna Bhtati MD 4 mg at 03/14/252241 oxyCODONE-acetaminophen (PERCOCET) 5-325 mg per tablet 1 tablet 1 tablet Oral Q6H PRN Fam, Muna Bhatti MD pantoprazole (PROTONIX) EC tablet 40 mg 40 mg Oral Daily ChaseMuna perez MD polyethylene glycol (MIRALAX) powder 17 g 17 g Oral Daily ChaseMuna perez MD polyvinyl alcohol (LIQUIFILM TEARS) 1.4 % ophthalmic solution 1 drop 1 drop Both Eyes PRN Fam, Muna Bhatti MD senna-docusate (SENNA-S) 8.6-50 mg per tablet 1 tablet 1 tablet Oral Daily PRN Fam, Muna Bhatti MD sodium chloride (OCEAN) 0.65 % nasal spray 1 spray 1 spray Each Nare PRN ChaseMuna perez MD sodium chloride (PF) (NS) flush 5 mL 5 mL Intravenous PRN Dashawn Stallings PA-C 5 mL at 03/14/252111 And sodium chloride 0.9% (NS) 0-150 mL/hr Intravenous PRN Dashawn Stallings PA-C tamsulosin (FLOMAX) 24 hr capsule 0.4 mg 0.4 mg Oral After evening meal Muna Otto MD zolpidem (AMBIEN) tablet 10 mg 10 mg Oral Nightly Muna Otto MD 10 mg at 03/14/256 documented in this encounter [facility] 03-21-2025 Note MEDONE DISCHARGE Tristin Thakkar Account: [id number] Admitted: 03/14/2025 Discharge Date/Time: 03/21/25 / 3:57 PM ___ Handoff to PCP Routine hospital follow up Outpatient follow-up with vascular surgery. Continued Xarelto. Clinical Summary Tristin Powell is a 85 y.o. male with a history of Peripheral Artery Disease s/p Bypass, Afib (Xarelto), Diastolic Heart Failure, Coronary Artery Disease s/p CABG, recent balloon angioplasty 03/12/2025,. presented to [facility] ED on 03/14/2025 from Vascular Surgery clinic with intractable right foot pain. Found to have critical right LE ischemia s/p distal SFA to peroneal bypass. Discharged home with outpatient therapy. Critical right lower limb ischemia: History of PAD. Follows Dr. Beaver ([facility]) and Dr. Sarabia (Vascular Surgery) [...] S/p IV pain meds. CAD: Followed by [facility] s/p 3 vessel coronary artery bypass [...] Medications New Medications Details naloxone 4 mg/actuation [place] Commonly known as: NARCAN Administer 1 spray [...] visible water re (more content not included)... [facility] 03-21-2025 Hospital course Narrative MEDONE DISCHARGE SUMMARY Tristin Powell Account: [id number] Admitted: 03/14/2025 Discharge Date/Time: 03/21/25 3:57 PM ___ Handoff to PCP Routine hospital follow up Outpatient follow-up with vascular surgery. Continued Xarelto. Clinical Summary Tristin Powell is a 85 y.o. male with a history of Peripheral Artery Disease s/p Bypass, Afib (Xarelto), Diastolic Heart Failure, Coronary Artery Disease s/p CABG, recent balloon angioplasty 03/12/2025,. presented to [facility] ED on 03/14/2025 from Vascular Surgery clinic with intractable right foot pain. Found to have critical right LE ischemia s/p distal SFA to peroneal bypass. Discharged home with outpatient therapy. Critical right lower limb ischemia: History of PAD. Follows Dr. Beaver ([facility]) and Dr. Sarabia (Vascular Surgery) [...] S/p IV pain meds. CAD: Followed by [facility] s/p 3 vessel coronary artery bypass [...] Medications New Medications Details naloxone 4 mg/actuation [place] Commonly known as: NARCAN Administer 1 spray [...] Physician(s) Family: Flash Lovelace MD, , Address: [address] [place] [address] / [facility] [address] Follow Up: Physicians, [facility] [facility] [address] [place] [address] Follow up Thank you for allowing us to participate in your care. Please follow up with your vascular surgery team after discharge. Please call our office with any questions or concerns. OTHER - NOT IN LIST [place] [phone] Additional Information: Patient seen and examined day of discharge. For more information regarding patient's care, including complete radiology reports, please contact [facility] at Patient instructions, including activity, were given to the patient/family at discharge. Please see the After Visit Summary in the medical record for details. Time spent on discharge: > 30 minutes Completed by: Uri Voss DO on 03/21/25, 3:57 PM documented in this encounter [facility] 03-21-2025 Hospital Discharge instructions Beena [...] if you need help quitting smoking: call [phone] ( ) or visit [employer]iance [employer] for more information. Who to Call: [facility] Vascular Surgery [place] [facility] Please call the office number at [phone] to confirm your follow-up appointment, or if you have any questions or concerns. documented in this encounter [facility] 03-21-2025 Consult note Associated Order (s): IP CONSULT TO [facility] HOME HEALTH CARE DISCHARGE PLAN Consulted for [facility] services: PT, OT Agency preference: [place] If discharge needs change, please reach out to liaison assigned on treatment team as hub is not notified of new consults once team is following. Thank you. Patients needing wound care or infusions (IVs or enteral feeds) should not discharge until [facility] is completely set up. AddendUm 1056: Rec'd call from Any, referral accepted. AVS updated. Addendum 1541: Rec'd msg from Ricihe MARIO, pt elects outpt therapy. [facility] discontinued and update sent to [facility]. Is [facility] plan complete or pending? Pt elects outpt tx Name of accepting [facility] agency: [facility] - notified Referrals sent to: (names of agencies) Please be advised that agencies have 24 hours to respond to referrals. [facility] (did not send) Any [facility] (orders) placed? discontinued Verify demographics (discharge address) [address] [facility] [address] [place] What is the primary phone number? [phone] Who is your primary care physician? Flash [...] = Start of Care TCG = Teachable Visually Impaired Teacher [facility] 03-21-2025 Consult note Associated Order (s): IP CONSULT TO [facility] HOME HEALTH CARE DISCHARGE PLAN Consulted for [facility] services: PT, OT Agency preference: [facility] If discharge needs change, please reach out to liaison assigned on treatment team as hub is not notified of new consults once team is following. Thank you. Patients needing wound care or infusions (IVs or enteral feeds) should not discharge until [facility] is completely set up. AddendUm 1056: Rec'd call from Larisa, referral accepted. AVS updated. Addendum 1541: Rec'd msg from Richie MARIO, pt elects outpt therapy. [facility] discontinued and update sent to [facility]. Is [facility] plan complete or pending? Pt elects outpt tx Name of accepting [facility] agency: [facility] HC - notified Referrals sent to: (names of agencies) Please be advised that agencies have 24 hours to respond to referrals. [facility] (did not send) Any [facility] (orders) placed? discontinued Verify demographics (discharge address) [address] [facility] [address] [employer] What is the primary phone number? [phone] Who is your primary care physician? Flash [...] = Start of Care TCG = Teachable Visually Impaired Teacher Associated Order(s): IP CONSULT TO CARE MANAGEMENT; [...] 5 with ampac of 10. Per previous [facility] note, patient was agreeable to hhc services prior to OR 03/17. Patient was independent prior to admission, hopeful for progression with therapy to proceed with home going plan. Otherwise will explore facility route if interested. If agreeable to facility, will need precert. Will continue to follow as patient progresses medically. Addendum 1355: spoke with patient at bedside. Patient only wants home going plan. Will still plan for hhc once ready for discharge. Assessment and Background [...] intolerance. 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 The patient's compliance is a barrier, awareness of own capacity and performance is a hand fretted instrument maker to return to prior level of function. [...] Supine: (Post-session Pt left in EOB position.) Director Inbound Sales: bedrails Functional Transfers Sit to Stand: Minimal assist, Moderate assist, 2 person assist Director Inbound Sales: wheeled walker Additional Functional Transfer Trial 2: Yes Sit to Stand Trial 2: Contact guard assist, Minimal assist Bed to Chair Trial 2: Contact guard assist, Minimal assist Director Inbound Sales Trial 2: wheeled walker Home Living Obtained [...] walker.) Prior Level of Function Level of [place] - Transfers/Ambulation/Mobility: Independent with functional transfers Level of [place] - ADLs: Independent Level of [place] - Homemaking: Independent Driving: Patient drives Vocational: [...] Arthritis Avascular necrosis of bone of hip ([facility]) Claudication COPD (chronic obstructive pulmonary disease) ([facility]) Coronary artery disease Herpes zoster Hyperlipidemia Hypertension PAD (peripheral artery disease) ([facility]) 01/21/2022 Posterior tibial tendinitis of right leg 11/07/2022 Prostate cancer ([facility]) Vascular disease Past Surgical History: Procedure Laterality Date 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/08/2018 Procedure: LEFT MIDFOOT AMPUTATION; Surgeon: Flynn Mann DPM; Location: [facility] OR; Service: Podiatry ANKLE SURGERY Left BYPASS FEMOROTIBIAL REPAIR/GRAFT Right 03/17/2025 Procedure: RIGHT FEMORAL TO TIBIAL BYPASS WITH ARM VEIN. 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 Cosigned by Francy Alcantara, OT at 03/19/2025 4:38 PM EDT Associated [...] Plan: Transportation Type: Auto Discharge Plan Status: OPTICIAN APPRENTICE consulted for discharge needs. PT recommending therapy 2-3 days per week. OT pending. OPTICIAN APPRENTICE met with pt at bedside to discuss HHC level of care. Pt agreeable HHC. Pt with no [preference of agency. Pt's son will be primary caregiver upon discharge and will transport pt home when medically ready. 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 Therapy Services Needed After Discharge: Yes Intensity of boat canvas maker and installer Therapy: 2-3 days per week Anticipated Duration of boat canvas maker and installer Therapy: Duration 10 - 30 days PT [...] Standing Balance - Static: Contact guard assist Director Inbound Sales - Standing Static: wheeled walker Standing Balance - Dynamic: Contact guard assist Director Inbound Sales - Standing Dynamic: same counselor aid used for static standing tasks Bed Mobility Rolling: Supervision Supine to Sit: Supervision Sit to Supine: (patient sitting EOB) Director Inbound Sales: bedrails Transfers Sit to Stand: Contact guard assist Director Inbound Sales: wheeled walker Gait/Locomotion Gait Assistance: Contact guard [...] walker.) Prior Level of Function Level of [place] - Transfers/Ambulation/Mobility: Independent with community ambulation, Independent with household ambulation, Independent with functional transfers Level of [place] - ADLs: Independent Level of [place] - Homemaking: Independent Driving: Patient drives Vocational: [...] Arthritis Avascular necrosis of bone of hip ([facility]) Claudication COPD (chronic obstructive pulmonary disease) ([facility]) Coronary artery disease Herpes zoster Hyperlipidemia Hypertension PAD (peripheral artery disease) ([facility]) 01/21/2022 Posterior tibial tendinitis of right leg 11/07/2022 Prostate cancer ([facility]) Vascular disease Past Surgical History: Procedure Laterality Date 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/08/2018 Procedure: LEFT MIDFOOT AMPUTATION; Surgeon: Flynn Mann DPM; Location: [facility] OR; Service: Podiatry ANKLE SURGERY Left BYPASS PERONEAL FEMORAL Right 09/07/2018 Procedure: BYPASS PERONEAL FEMORAL, RIGHT SAPHENOUS VEIN HARVEST, COMPLETION ANGIOGRAM; Surgeon: Mohsen Sarabia MD; Location: [facility]; Service: Cardiovascular CARDIAC CATHETERIZATION Left 09/05/2018 Procedure: Angio Lower Extremity; Surgeon: Ben Hahn MD; 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 Will review non-invasive studies as obtained earlier today as well as [facility] RLE angiograms with PV attending. Final disposition [...] outpatient Vasc Surg Admission requested by Dr. Long, Vasc Surg, based on outpatient visit conducted earlier today in view of complaints of excruciating right foot pain (particularly right hallux) and concerns for discoloration and digital ischemia. Pain NOT relieved with opioids. Per ED MD, no surgical options, PV consult recommended by Vasc Surg for consideration of LE angio. By chart review, recently underwent formal LE angio on 03/12/25 via [facility]. Follows with Dr. Carvalho, cardiology, at [facility]. Last OV 11/2024. Son is present at [...] was drawn out. Relevant Vascular History: 06/2024: [facility] demonstrating stable coronary artery disease. Patent [...] SVG to PDA) via [facility] 10/2007: [facility] with MARIA ESTHER to LAD and LCx Objective Imaging: I independently reviewed the non-invasive vascular studies and agree with the interpretation(s) ECG 12 Lead Final Result by Interface, Lab Results In [facility] (11/07/2022 1139) Echocardiogram complete w contrast [...] Arthritis Avascular necrosis of bone of hip ([facility]) Claudication COPD (chronic obstructive pulmonary disease) ([facility]) Coronary artery disease Herpes zoster Hyperlipidemia Hypertension PAD (peripheral artery disease) ([facility]) 01/21/2022 Posterior tibial tendinitis of right leg 11/07/2022 Prostate cancer ([facility]) Vascular disease Past Surgical History: Procedure Laterality Date 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/08/2018 Procedure: LEFT MIDFOOT AMPUTATION; Surgeon: Flynn Mann DPM; Location: [facility] OR; Service: Podiatry ANKLE SURGERY Left BYPASS PERONEAL FEMORAL Right 09/07/2018 Procedure: BYPASS PERONEAL FEMORAL, RIGHT SAPHENOUS VEIN HARVEST, COMPLETION ANGIOGRAM; Surgeon: Mohsen Sarabia MD; Location: [facility]; Service: Cardiovascular CARDIAC CATHETERIZATION Left 09/05/2018 Procedure: Angio Lower Extremity; Surgeon: Ben Hahn MD; Location: [facility] TELE[facility]ION CABINET FINISHER; Service: Cardiovascular CARDIAC SURGERY 2017 triple bypass EGD N/A 10/10/2018 Procedure: ESOPHAGOGASTRODUODENOSCOPY; Surgeon: Ben Jensen MD; Location: [facility]; Service: Gastroenterology EYE SURGERY Right 2015 [...] (two) times a day 08/29 tab . AZELASTINE (ASTELIN) 137 MCG (0.1 [...] to contact me, my mobile number is [phone]. Respectfully, Demetrice Martinez APRN [facility] Heart and Vascular Physicians [1] [...] He underwent angiography 2 days ago in [place] where he was found to have progressive [...] Arthritis Avascular necrosis of bone of hip ([facility]) Claudication COPD (chronic obstructive pulmonary disease) ([facility]) Coronary artery disease Herpes zoster Hyperlipidemia Hypertension PAD (peripheral artery disease) ([facility]) 01/21/2022 Posterior tibial tendinitis of right leg 11/07/2022 Prostate cancer ([facility]) Vascular disease Allergies: Doxycycline and Gabapentin Current [...] artery as it enters the foot. Impression: [place] 4 critical limb threatening ischemia Advanced peripheral [...] vascular surgery colleagues I personally performed a pmlb-no-bcxs diagnostic evaluation on this patient on the [...] (two) times a day /2 tab . azelastine (ASTELIN) 137 mcg (0.1 [...] s/p left fem to peroneal bypass (2018, Monty), left TMA who presented to [facility] on 03/14/2025 with worsening RLE pain and discoloration. Arterial Duplex (03/14/25): 50-99% stenosis in the right mid SFA YAMILE's (03/14/25): Right YAMILE is 0.50. Left YAMILE is 0.55. CTLI IV Aortic Stenosis -Patient w/ notable history of PAD s/p left fem to peroneal bypass (2019, Monty) p/w RLE rest pain x 3 days. [...] Beena Barraza MD General Surgery Resident, PGY-2 [facility] Please contact surgical general internal medicine doctor physician compensation analyst 5PM-6AM and weekends - #[phone] VTS Pager - #[phone] Admitted with these risk variables:None. Please see [...] Arthritis Avascular necrosis of bone of hip ([facility]) Claudication COPD (chronic obstructive pulmonary disease) ([facility]) Coronary artery disease Herpes zoster Hyperlipidemia Hypertension PAD (peripheral artery disease) ([facility]) 01/21/2022 Posterior tibial tendinitis of right leg 11/07/2022 Prostate cancer ([facility]) Vascular disease Past Surgical History: Procedure Laterality Date 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/08/2018 Procedure: LEFT MIDFOOT AMPUTATION; Surgeon: Flynn Mann DPM; Location: [facility] OR; Service: Podiatry ANKLE SURGERY Left BYPASS PERONEAL FEMORAL Right 09/07/2018 Procedure: BYPASS PERONEAL FEMORAL, RIGHT SAPHENOUS VEIN HARVEST, COMPLETION ANGIOGRAM; Surgeon: Mohsen Sarabia MD; Location: [facility]; Service: Cardiovascular CARDIAC CATHETERIZATION Left 09/05/2018 Procedure: Angio Lower Extremity; Surgeon: Ben Hahn MD; Location: [facility] TELEVISION 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; Service: Cardiovascular CARDIAC SURGERY 2017 triple bypass EGD N/A 10/10/2018 Procedure: ESOPHAGOGASTRODUODENOSCOPY; Surgeon: Ben Jensen MD; [place] [facility] [place]; Service: Gastroenterology EYE SURGERY Right 2015 [...] Resource Strain: Low Risk (06/21/2024) Received from [facility] Overall Financial Resource Strain (CARDIA) Difficulty of Paying Living Expenses: Not hard at all Food Insecurity: No Food Insecurity (06/21/2024) Received from [facility] Hunger Vital Sign Worried About Running Out of Food in the Last Year: Never true Ran Out of Food in the Last Year: Never true Transportation Needs: No Transportation Needs (06/21/2024) Received from [facility] PRAPARE - Transportation Lack of Transportation (Medical): No Lack of Transportation (Non-Medical): No Physical Activity: Insufficiently Active (06/21/2024) Received from [facility] Exercise Vital Sign Days of Exercise per Week: 7 days Minutes of Exercise per Session: 10 min Stress: No Stress Concern Present (06/21/2024) Received from [facility] [place] [facility] - Occupational Stress Questionnaire Feeling of Stress : Not at all Housing Stability: Low Risk (06/21/2024) Received from [facility] Housing Stability Vital Sign Unable to Pay for Housing in the Last Year: No Number of Times Moved in the Last Year: 0 Homeless in the Last Year: No Cosigned by Mohsen Sarabia MD at 03/16/2025 10:33 AM EDT Associated attestation - Walker, Mohsen De Oliveira MD - 03/16/2025 10:33 AM EDT Patient seen and examined. I have personally reviewed all pertinent labs, radiological studies and records. I have personally examined the patient and agree with resident/SHRUB GROWER/PA assessment and plan with the following additional findings. Pt known to me with CLTI of the RLE with rest pain and early ischemic skin changes. Plan for R fem tib bypass on Monday for limb salvage documented in this encounter [facility] 03-21-2025 Plan of care note [...] pressure injury Outcome: Partially Met [facility] 03-21-2025 Miscellaneous Notes Problem: Actual [...] CABG, recent balloon angioplasty 03/12/2025,. presented to [facility] ED on 03/14/2025 from Vascular Surgery clinic with intractable right foot pain. Found to have critical right LE ischemia. S/p angiogram 03/17/25 with R SFA to peroneal bypass. Past Medical History: Diagnosis Date Arthritis Avascular necrosis of bone of hip ([facility]) Claudication COPD (chronic obstructive pulmonary disease) ([facility]) Coronary artery disease Herpes zoster Hyperlipidemia Hypertension PAD (peripheral artery disease) ([facility]) 01/21/2022 Posterior tibial tendinitis of right leg 11/07/2022 Prostate cancer ([facility]) Vascular disease Past Surgical History: Procedure Laterality Date 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/08/2018 Procedure: LEFT MIDFOOT AMPUTATION; Surgeon: Flynn Mann DPM; Location: [facility] OR; Service: Podiatry ANKLE SURGERY Left BYPASS FEMOROTIBIAL REPAIR/GRAFT Right 03/17/2025 Procedure: RIGHT FEMORAL TO TIBIAL BYPASS WITH ARM VEIN. 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; Service: Cardiovascular CARDIAC SURGERY 2017 triple bypass EGD N/A 10/10/2018 Procedure: ESOPHAGOGASTRODUODENOSCOPY; Surgeon: Ben Jensen MD; [place] [facility] [place]; Service: Gastroenterology EYE SURGERY Right 2015 [...] No Nutrition Related Allergies noted Cultural or Rastafarian Dietary Needs :No Cultural or Rastafarian Dietary needs noted Difficulty Chewing or Swallowing: No Skin Integrity: incision right leg, incision left leg, acute sacral wound GI Function: LBM 03/16 per flowsheets Edema: generalized edema, per flowsheet Nutrition-Focused Physical Exam: no overt s/sx of fat/muscle loss on visual exam; appears to have age related changes Labs: Recent Labs 03/18/25 0401 03/19/25 0455 03/20/25 0438 NA 140 140 139 K 4.1 5.0 4.1 BICARB 19* 24 22 CL 109* 108 107 GLUCOSE 111* 109* 97 BUN 20 CREATININE 1.05 1.12 0.97 MG 2.1 [...] Nightly Continuous Infusions: sodium chloride Serenity Wilson RD,[place],[facility] or in [facility] Secure Chat Problem: Actual or potential alteration [...] (85 y.o.) Date of Service: 03/17/2025 CSN: [id number] Procedure(s): RIGHT FEMORAL TO TIBIAL BYPASS WITH ARM VEIN. Angiogram Pre-Operative Diagnoses: * PERIPHERAL ARTERY DISEASE Post-Operative Diagnoses: same Surgeons and Role: * Mohsen Sarabia MD - Primary * Karina Orozco MD - Resident - Assisting Anesthesiologist: Serjio Olivarez MD; Muna Gil MD OIL WELL SERVICES FIELD SUPERVISOR: Viviana Dhillon CRNA 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: Lori Diaz RN Show Horse Driver: Jose C Ambrose, TECHNOLOGIST 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 Relief: Millicent Cedeño RN; Arlene Watson RN Scrub Person Relief: Izabel Bosch RN 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 Orientee: Kaylie Jason RN 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 Preceptor: Izabel Bosch RN Scrub Person Preceptor: [...] Implant Name Type Inv. Item Serial No. 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 Lot No. LRB No. Used Action HEMOSTAT 2 X 4IN SURGICEL FIBRILLAR - SNA HEMOSTAT 2 X 4IN SURGICEL FIBRILLAR NA ETHICON [id number] Right 1 Implanted SEALANT 10ML HEMOSTATIC MATRIX FAST PREP FLOSEAL W/RECOTHROM - [id number] SEALANT 10ML HEMOSTATIC MATRIX FAST PREP FLOSEAL W/RECOTHROM Witget [id number] Right 1 Implanted Drain(s): Urethral Catheter Non-latex;Straight-tip 16 Fr. (Active) Wound(s): Wound 11/04/22 Chronic Ankle;BKA;Other: Anterior;Left (Active) Wound 03/14/25 Acute Sacral Left (Active) Reassessment Unchd 03/16/251817 Dressing Status Open to air 03/16/252000 Drainage Amount None 03/14/252099 Drainage Description None 03/14/25 2100 Odor None 03/14/252099 Primary Dressing Bordered Foam (e.g. mepilex) 03/16/25 [...] note author and KULDEEP Jean. Added to label maker schedule for 03/17/25, with Dr. Mast for a RLE angio +/- intervention. Orders placed. Consent signed and given to label maker. ASA and clopidogrel initiated. Again, no heparin gtt required unless needed in the setting of hx of paroxysmal a.fib (historically on Xarelto; however, has been held over the past week 2/2 RLE angio at [facility] as performed on 03/12/25). Additionally, please accept [...] RLE angiogram from March 12, 2025 from [facility] sent electronically. This was sent to Juana Escobar NP. She was able to open and view. Images sent to appropriate staff per Juana Escobar CNP. Called and notified the patient's daughter that she does not have to get the disc from [place] and bring to [facility]. Associated Problem(s): Carotid stenosis, asymptomatic, bilateral Asymptomatic. No hx of CVA Non-invasive Studies: Carotid Duplex (04/2024): Left ICA with mild <50% stenosis of heterogenous plaque. Right ICA with moderate 50-69% stenosis of heterogenous plaque Associated Problem(s): Coronary artery disease involving coronary bypass graft of [place] heart without angina pectoris S/p 3v CABG [...] Recently underwent RLE angio on 03/12/25 via [facility] in [place] Non-invasive Studies: RLE arterial duplex (03/14/25): 50-99% [...] prescribed. documented in this encounter [facility] 03-20-2025 Initial evaluation note 03/20/2025: [...] CABG, recent balloon angioplasty 03/12/2025,. presented to [facility] ED on 03/14/2025 from Vascular Surgery clinic with intractable right foot pain. Found to have critical right LE ischemia. S/p angiogram 03/17/25 with R SFA to peroneal bypass. Past Medical History: Diagnosis Date Arthritis Avascular necrosis of bone of hip ([facility]) Claudication COPD (chronic obstructive pulmonary disease) ([facility]) Coronary artery disease Herpes zoster Hyperlipidemia Hypertension PAD (peripheral artery disease) ([facility]) 01/21/2022 Posterior tibial tendinitis of right leg 11/07/2022 Prostate cancer ([facility]) Vascular disease Past Surgical History: Procedure Laterality Date 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/08/2018 Procedure: LEFT MIDFOOT AMPUTATION; Surgeon: Flynn Mann DPM; Location: [facility] OR; Service: Podiatry ANKLE SURGERY Left BYPASS FEMOROTIBIAL REPAIR/GRAFT Right 03/17/2025 Procedure: RIGHT FEMORAL TO TIBIAL BYPASS WITH ARM VEIN. 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; Service: Cardiovascular CARDIAC SURGERY 2017 triple bypass EGD N/A 10/10/2018 Procedure: ESOPHAGOGASTRODUODENOSCOPY; Surgeon: Ben Jensen MD; [place] [facility] [place]; Service: Gastroenterology EYE SURGERY Right 2014 [...] No Nutrition Related Allergies noted Cultural or Rastafarian Dietary Needs :No Cultural or Rastafarian Dietary needs noted Difficulty Chewing or Swallowing: [...] Nightly Continuous Infusions: sodium chloride Serenity Wilson RD,[place],[facility] or in [facility] Secure Chat [facility] 03-20-2025 Note [facility] Note 03/20/2025 Tristin Powell 1940 [id number] Assessment/Plan: Tristin Powell is a 85 y.o. male with a history of Peripheral Artery Disease s/p Bypass, Afib (Xarelto), Diastolic Heart Failure, Coronary Artery Disease s/p CABG, recent balloon angioplasty 03/12/2025,. presented to [facility] ED on 03/14/2025 from Vascular Surgery clinic with intractable right foot pain. Found to have critical right LE ischemia Critical right lower limb ischemia: History of PAD. Follows Dr. Beaver ([facility]) and Dr. Sarabia (Vascular Surgery) [...] S/p IV pain meds. CAD: Followed by [facility] Cardiology s/p 3 vessel coronary artery bypass [...] xarelto Medication Reconciliation: Reviewed using patient interview, account technician Current living situation: home Expected Disposition: [...] major joint deformity: RLE tired leg and shredding machine tender to touch. Moving well with mild [...] 4.34* 5.05 HG (more content not included)... [facility] 03-20-2025 Note VASCULAR SURGERY PRO LUCY [...] (2019, Walker), left TMA who presented to [facility] on 03/14/2025 with worsening RLE pain and discoloration. Arterial Duplex (03/14/25): 50-99% stenosis in the right mid SFA YAMILE's (03/14/25): Right YAMILE is 0.50. Left YAMILE is 0.55. CTLI IV Aortic Stenosis -Admitted to medicine -s/p RLE distal SFA to peroneal bypass w/ reversed LUE cephalic vein, completion angio w/ diminutive runoff via peroneal (03/17, Monty) -Regular diet -Continue to encourage UOOB, AAT, IS -Continue ASA 81 -Repeat ABIs this morning -Will discuss with Dr. Sarabia TREV COLEMAN MD General Surgery Resident, PGY-1 [facility] Please contact surgical general internal medicine doctor physician compensation analyst 5PM-6AM and weekends - #[phone] VTS Pager - #[phone] Subjective NAEO. Has been ambulating. New bruising [...] results reviewed AUTHENTICATED BY TREV COLEMAN, ON 03/20/2025 07:05:30 [facility] 03-20-2025 Plan of care note Problem: [...] pressure injury Outcome: Partially Met [facility] 03-19-2025 Consult note Associated Order [...] 5 with ampac of 10. Per previous [facility] note, patient was agreeable to c services prior to OR 03/17. Patient was independent prior to admission, hopeful for progression with therapy to proceed with home going plan. Otherwise will explore facility route if interested. If agreeable to facility, will need precert. Will continue to follow as patient progresses medically. Addendum 1355: spoke with patient at bedside. Patient only wants home going plan. Will still plan for hhc once ready for discharge. Assessment and Background Information: [facility] 03-19-2025 Consult note Formatting of [...] intolerance. 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 The patient's compliance is a barrier, awareness of own capacity and performance is a hand fretted instrument maker to return to prior level of function. [...] Supine: (Post-session Pt left in EOB position.) Director Inbound Sales: bedrails Functional Transfers Sit to Stand: Minimal assist, Moderate assist, 2 person assist Director Inbound Sales: wheeled walker Additional Functional Transfer Trial 2: Yes Sit to Stand Trial 2: Contact guard assist, Minimal assist Bed to Chair Trial 2: Contact guard assist, Minimal assist Director Inbound Sales Trial 2: wheeled walker Home Living Obtained [...] walker.) Prior Level of Function Level of [place] - Transfers/Ambulation/Mobility: Independent with functional transfers Level of [place] - ADLs: Independent Level of [place] - Homemaking: Independent Driving: Patient drives Vocational: [...] Arthritis Avascular necrosis of bone of hip ([facility]) Claudication COPD (chronic obstructive pulmonary disease) ([facility]) Coronary artery disease Herpes zoster Hyperlipidemia Hypertension PAD (peripheral artery disease) ([facility]) 01/21/2022 Posterior tibial tendinitis of right leg 11/07/2022 Prostate cancer ([facility]) Vascular disease Past Surgical History: Procedure Laterality Date 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/08/2018 Procedure: LEFT MIDFOOT AMPUTATION; Surgeon: Flynn Mann DPM; Location: [facility] OR; Service: Podiatry ANKLE SURGERY Left BYPASS FEMOROTIBIAL REPAIR/GRAFT Right 03/17/2025 Procedure: RIGHT FEMORAL TO TIBIAL BYPASS WITH ARM VEIN. 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 male with a history of Peripheral Artery Disease s/p Bypass, Afib (Xarelto), Diastolic Heart Failure, Coronary Artery Disease s/p CABG, recent balloon angioplasty 03/12/2025,. presented to [facility] ED on 03/14/2025 from Vascular Surgery clinic with intractable right foot pain. Found to have critical right LE ischemia Critical right lower limb ischemia: History of PAD. Follows Dr. Beaver ([facility]) and Dr. Sarabia (Vascular Surgery) [...] added, wean as able. CAD: Followed by [facility]iology s/p 3 vessel coronary artery bypass [...] xarelto Medication Reconciliation: Reviewed using patient interview, account technician Current living situation: home Expected Disposition: PT/OT rec up to 5 pt requesting home with [facility], following. Estimated discharge date: ~03/20/2025 Medically Ready [...] major joint deformity: RLE tired leg and shredding machine tender to touch. Moving well with mild [...] K/mcL 4.34* 5 (more content not included)... [facility] 03-19-2025 Note VASCULAR SURGERY PRO LUCY [...] (2019, Walker), left TMA who presented to [facility] on 03/14/2025 with worsening RLE pain and discoloration. Arterial Duplex (03/14/25): 50-99% stenosis in the right mid SFA YAMILE's (03/14/25): Right YAMILE is 0.50. Left YAMILE is 0.55. CTLI IV Aortic Stenosis -Admitted to medicine -s/p RLE distal SFA to peroneal bypass w/ reversed LUE cephalic vein, completion angio w/ diminutive runoff via peroneal (03/17, Monty) -Regular diet -Continue to encourage UOOB, AAT, IS -Continue ASA 81 -Will discuss timing for repeat ABIs -Will discuss with Dr. Sarabia TREV COLEMAN MD General Surgery Resident, PGY-1 [facility] Please contact surgical general internal medicine doctor physician compensation analyst 5PM-6AM and weekends - #[phone] VTS Pager - #[phone] Subjective NAEO. Was able to get up [...] AUTHENTICATED BY TREV COLEMAN, ON 03/19/2025 07:06:48 [facility] 03-18-2025 Note [facility] Note 03/18/2025 Tristin Powell 1940 [id number] Assessment/Plan: Tristin Hortensia Powell is a 85 y.o. male with a history of Peripheral Artery Disease s/p Bypass, Afib (Xarelto), Diastolic Heart Failure, Coronary Artery Disease s/p CABG, recent balloon angioplasty 03/12/2025,. presented to [facility] ED on 03/14/2025 from Vascular Surgery clinic with intractable right foot pain. Found to have critical right LE ischemia Critical right lower limb ischemia: History of PAD. Follows Dr. Beaver ([facility]) and Dr. Sarabia (Vascular Surgery) [...] dose. IV Dilaudid added. CAD: Followed by [facility] Cardiology s/p 3 vessel coronary artery bypass [...] per Medication Reconciliation: Reviewed using patient interview, account technician Current living situation: home Expected Disposition: [...] major joint deformity: RLE tired leg and shredding machine tender to touch. Moving well with mild [...] Units 03/18/25 04 (more content not included)... [facility] 03-18-2025 Note VASCULAR SURGERY PRO LUCY [...] PAD, s/p left fem to peroneal bypass (Monty Borges), left TMA who presented to [facility] on 03/14/2025 with worsening RLE pain and discoloration. Arterial Duplex (03/14/25): 50-99% stenosis in the right mid SFA YAMILE's (03/14/25): Right YAMILE is 0.50. Left YAMILE is 0.55. CTLI IV Aortic Stenosis -Admitted to medicine -s/p RLE distal SFA to peroneal bypass w/ reversed LUE cephalic vein, completion angio w/ diminutive runoff via peroneal (03/17Monty) -Diet as tolerated -Discontinue qureshi, yoly -UOOB, AAT, IS -Continue ASA 81 -Will discuss with Dr. Sarabia TREV COLEMAN MD General Surgery Resident, PGY-2 [facility] Please contact surgical general internal medicine doctor physician compensation analyst 5PM-6AM and weekends - #[phone] VTS Pager - #[phone] Subjective NAEO. Feels good this morning. Wants [...] results reviewed AUTHENTICATED BY TREV COLEMAN ON 03/18/2025 06:35:17 [facility] 03-18-2025 History of Present illness Narrative Pt seen by PV cardiology while at [facility]. Per Catina Calixto CNP, no PV cardiology follow up needed, pt to f/u with vascular surgery. documented in this encounter [facility] 03-18-2025 Plan of care note [...] pressure injury Outcome: Partially Met [facility] 03-17-2025 Note VASCULAR SURGERY PRO LUCY NOTE Patient Name: Tristin Powell ASSESSMENT AND PLAN Tristin Powell is a 85 y.o. male with history of arotic stenosis, HTN, dyslipidemia, HFpEF, ascending/thoracic aortic aneurysm (4.[address] dated 04/2024), CAD (NSTEMI; s/p 3v CABG), paroxysmal a.fib, aortic & mitral valve disease, COPD, CKD stage 3, PAD, s/p left fem to peroneal bypass (Jony, Monty), left TMA who presented to [facility] on 03/14/2025 with worsening RLE pain and [...] Walker MD General Surgery Please contact surgical general internal medicine doctor physician compensation analyst 5PM-6AM and weekends VTS Pager - #[phone] SUBJECTIVE Patient is resting in bed with [...] with formal radiology reads. AUTHENTICATED BY ABI WALKER, ON 03/18/2025 03:54:39 [facility] 03-17-2025 Procedure note Brief Post Operative Note Patient Name: Tristin Powell : 1940 (85 y.o.) Date of Service: 03/17/2025 CSN: [id number] Procedure(s): RIGHT FEMORAL TO TIBIAL BYPASS WITH ARM VEIN. Angiogram Pre-Operative Diagnoses: * PERIPHERAL ARTERY DISEASE Post-Operative Diagnoses: same Surgeons and Role: * Mohsen Sarabia MD - Primary * Karina Orozco MD - Resident - Assisting Anesthesiologist: Serjio Olivarez MD; Muna Gil MD OIL WELL SERVICES FIELD SUPERVISOR: Viviana Dhillon CRNA 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: Lori Diaz RN Show Horse Driver: Jose C Ambrose, TECHNOLOGIST 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 Relief: Millicent Cedeño RN; Arlene Watson RN Scrub Person Relief: Izabel Bosch RN 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 Orientee: Kaylie Jason RN 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 Preceptor: Izabel Bosch RN Scrub Person Preceptor: Lorraine Zhao ST Scrub Person Orientee: Jaun Edomnds RN Operative findings: RLE distal SFA to peroneal bypass w/ reversed LUE cephalic vein, completion angio w/ diminutive runoff via peroneal Intra and immediate post-operative complications: none Type of anesthesia used: General Estimated blood loss: 50 mL Estimated urine output: Specimen(s): * No specimens in log * Implant(s): Implant Name Type Inv. Item Serial No. 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 Lot No. LRB No. Used Action HEMOSTAT 2 X 4IN SURGICEL FIBRILLAR - SNA HEMOSTAT 2 X 4IN SURGICEL FIBRILLAR NA ETHICON [id number] Right 1 Implanted SEALANT 10ML HEMOSTATIC MATRIX FAST PREP FLOSEAL W/RECOTHROM - [id number] SEALANT 10ML HEMOSTATIC MATRIX FAST PREP FLOSEAL W/RECOTHROM Witget [id number] Right 1 Implanted Drain(s): Urethral Catheter Non-latex;Straight-tip 16 Fr. (Active) Wound(s): Wound 11/04/22 Chronic Ankle;BKA;Other: Anterior;Left (Active) Wound 03/14/25 Acute Sacral Left (Active) Reassessment Unchd 03/16/251817 Dressing Status Open to air 03/16/252000 Drainage Amount None 03/14/252099 Drainage Description None 03/14/25 2100 Odor None 03/14/252099 Primary Dressing Bordered Foam (e.g. mepilex) 03/16/25 [...] NO Karina Orozco MD 03/17/2025 4:30 PM [employer] Work Phone: 03-17-2025 Attending History and physical note INTERVAL HISTORY AND PHYSICAL Patient Name: Tristin Powell Admit Date: [id number] MR #: [id number] : 1940 The H&P has been reviewed [...] s/p left fem to peroneal bypass (2018, Monty), left TMA who presented to [facility] on 03/14/2025 with worsening RLE pain and discoloration. Arterial Duplex (03/14/25): 50-99% stenosis in the right mid SFA YAMILE's (03/14/25): Right YAMILE is 0.50. Left YAMILE is 0.55. CTLI IV Aortic Stenosis -Patient w/ notable history of PAD s/p left fem to peroneal bypass (2018, Monty) p/w RLE rest pain x 3 days. [...] Beena Barraza MD General Surgery Resident, PGY-2 [facility] Please contact surgical general internal medicine doctor physician compensation analyst 5PM-6AM and weekends - #[phone] VTS Pager - #[phone] Admitted with these risk variables:None. Please see [...] Arthritis Avascular necrosis of bone of hip ([facility]) Claudication COPD (chronic obstructive pulmonary disease) ([facility]) Coronary artery disease Herpes zoster Hyperlipidemia Hypertension PAD (peripheral artery disease) ([facility]) 01/21/2022 Posterior tibial tendinitis of right leg 11/07/2022 Prostate cancer ([facility]) Vascular disease Past Surgical History: Procedure Laterality Date 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/08/2018 Procedure: LEFT MIDFOOT AMPUTATION; Surgeon: Flynn Mann DPM; Location: [facility] OR; Service: Podiatry ANKLE SURGERY Left BYPASS PERONEAL FEMORAL Right 09/07/2018 Procedure: BYPASS PERONEAL FEMORAL, RIGHT SAPHENOUS VEIN HARVEST, COMPLETION ANGIOGRAM; Surgeon: Mohsen Sarabia MD; Location: [facility] OR; Service: Cardiovascular CARDIAC CATHETERIZATION Left 09/05/2018 Procedure: Angio Lower Extremity; Surgeon: Ben Hahn MD; Location: [facility] TELEVISION CABINET FINISHER; Service: Cardiovascular CARDIAC SURGERY 2017 triple bypass EGD N/A 10/10/2018 Procedure: ESOPHAGOGASTRODUODENOSCOPY; Surgeon: Ben Jensen MD; [place] [facility] [place]; Service: Gastroenterology EYE SURGERY Right 2015 [...] Resource Strain: Low Risk (06/21/2024) Received from [facility] Overall Financial Resource Strain (CARDIA) Difficulty of Paying Living Expenses: Not hard at all Food Insecurity: No Food Insecurity (06/21/2024) Received from [facility] Hunger Vital Sign Worried About Running Out of Food in the Last Year: Never true Ran Out of Food in the Last Year: Never true Transportation Needs: No Transportation Needs (06/21/2024) Received from [facility] PRAPARE - Transportation Lack of Transportation (Medical): No Lack of Transportation (Non-Medical): No Physical Activity: Insufficiently Active (06/21/2024) Received from [facility] Exercise Vital Sign Days of Exercise per Week: 7 days Minutes of Exercise per Session: 10 min Stress: No Stress Concern Present (06/21/2024) Received from [facility] [place] [employer] - Occupational Stress Questionnaire Feeling of Stress : Not at all Housing Stability: Low Risk (06/21/2024) Received from [facility] Housing Stability Vital Sign Unable to Pay for Housing in the Last Year: No Number of Times Moved in the Last Year: 0 Homeless in the Last Year: No Cosigned by Mohsen Sarabia MD at 03/16/2025 10:33 AM EDT [facility] Work Phone: 03-17-2025 History and physical note INTERVAL HISTORY AND PHYSICAL Patient Name: Tristin Powell Admit Date: [id number] MR #: [id number] : 1940 The H&P has been reviewed [...] s/p left fem to peroneal bypass (2018, Monty), left TMA who presented to [facility] on 03/14/2025 with worsening RLE pain and discoloration. Arterial Duplex (03/14/25): 50-99% stenosis in the right mid SFA YAMILE's (03/14/25): Right YAMILE is 0.50. Left YAMILE is 0.55. CTLI IV Aortic Stenosis -Patient w/ notable history of PAD s/p left fem to peroneal bypass (2018, Monty) p/w RLE rest pain x 3 days. [...] Beena Barraza MD General Surgery Resident, PGY-2 [facility] Please contact surgical general internal medicine doctor physician compensation analyst 5PM-6AM and weekends - #[phone] VTS Pager - [phone] Admitted with these risk variables:None. Please see [...] Arthritis Avascular necrosis of bone of hip ([facility]) Claudication COPD (chronic obstructive pulmonary disease) ([facility]) Coronary artery disease Herpes zoster Hyperlipidemia Hypertension PAD (peripheral artery disease) ([facility]) 01/21/2022 Posterior tibial tendinitis of right leg 11/07/2022 Prostate cancer ([facility]) Vascular disease Past Surgical History: Procedure Laterality Date 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/08/2018 Procedure: LEFT MIDFOOT AMPUTATION; Surgeon: Flynn Mann DPM; Location: [facility] OR; Service: Podiatry ANKLE SURGERY Left BYPASS PERONEAL FEMORAL Right 09/07/2018 Procedure: BYPASS PERONEAL FEMORAL, RIGHT SAPHENOUS VEIN HARVEST, COMPLETION ANGIOGRAM; Surgeon: Mohsen Sarabia MD; Location: [facility] NEURO OR; Service: Cardiovascular CARDIAC CATHETERIZATION Left 09/05/2018 Procedure: Angio Lower Extremity; Surgeon: Ben Hahn MD; Location: [facility] TELE[facility]ION CABINET FIN[employer]ER; Service: Cardiovascular CARDIAC SURGERY 2017 triple bypass EGD N/A 10/10/2018 Procedure: ESOPHAGOGASTRODUODENOSCOPY; Surgeon: Ben Jensen MD; Location: [facility]; Service: Gastroenterology EYE SURGERY Right 2015 [...] Resource Strain: Low Risk (06/21/2024) Received from [facility] Overall Financial Resource Strain (CARDIA) Difficulty of Paying Living Expenses: Not hard at all Food Insecurity: No Food Insecurity (06/21/2024) Received from [facility] Hunger Vital Sign Worried About Running Out of Food in the Last Year: Never true Ran Out of Food in the Last Year: Never true Transportation Needs: No Transportation Needs (06/21/2024) Received from [facility] PRAPARE - Transportation Lack of Transportation (Medical): No Lack of Transportation (Non-Medical): No Physical Activity: Insufficiently Active (06/21/2024) Received from [facility] Exercise Vital Sign Days of Exercise per Week: 7 days Minutes of Exercise per Session: 10 min Stress: No Stress Concern Present (06/21/2024) Received from [facility] [place] [facility] [employer] [facility] - Occupational Stress Questionnaire Feeling of Stress : Not at all Housing Stability: Low Risk (06/21/2024) Received from [facility] Housing Stability Vital Sign Unable to Pay for Housing in the Last Year: No Number of Times Moved in the Last Year: 0 Homeless in the Last Year: No Cosigned by Mohsen Sarabia MD at 03/16/2025 10:33 AM EDT [place] History and Physical Note 03/14/25 Tristin Powell 1940 [id number] Assessment/Plan: Tristin Powell is a 85 y.o. male with a history of Peripheral Artery Disease s/p Bypass, Afib (Xarelto), Diastolic Heart Failure, Coronary Artery Disease s/p CABG, Hypertension, CKD III, COPD, Prostate Cancer, and Insomnia. Patient had outpatient angiogram 03/12/25 with balloon angioplasty. He presented to [facility] ED on 03/14/2025 from Vascular Surgery clinic with intractable right foot pain. In ED: right YAMILE 0.5; 50-99% stenosis in right mid superficial femoral artery; WBC 3.5. Course prolonged due to need for angiogram and Xarelto washout. Peripheral Artery Disease: Followed by Dr. Bevaer ([facility]) and Dr. Sarabia (Vascular Surgery) [...] additional for acute pain. CAD: Followed by [facility] s/p 3 vessel coronary artery bypass grafting in 2017 and 7 stents. Chronic Diastolic Heart Failure: TTE 04/2024: LVEF 55% grade 1 diastolic dysfunction, moderate aortic regurgitation, moderate mitral regurgitation, mild tricuspid regurgitation. Appeared euvolemic on admission. Continued home losartan and lasix every other day. Paroxysmal Afib: [id number] of 5. Xarelto as above (no indication [...] lovenox. Medication Reconciliation: Reviewed using patient interview, account technician Current living situation: home Expected Disposition: [...] personally discussed with Juana (Peripheral Vascular Cardiology NEON SIGN MECHANIC) and Dr. Barraza (Vascular Surgery) - likely angiogram on Monday; no surgical intervention. ROS: 10 systems were reviewed and negative, except as noted above. Past Medical, Surgical, Social, Family History: Past Medical History: Diagnosis Date Arthritis Avascular necrosis of bone of hip (HCC) Claudication COPD (chronic obstructive pulmonary disease) (HCC) Coronary artery disease Herpes zoster Hyperlipidemia Hypertension PAD (peripheral artery disease) ([facility]) 01/21/2022 Posterior tibial tendinitis of right leg 11/07/2022 Prostate cancer ([facility]) Vascular disease Past Surgical History: Procedure Laterality Date 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/08/2018 Procedure: LEFT MIDFOOT AMPUTATION; Surgeon: Flynn Mann DPM; Location: [facility] OR; Service: Podiatry ANKLE SURGERY Left BYPASS PERONEAL FEMORAL Right 09/07/2018 Procedure: BYPASS PERONEAL FEMORAL, RIGHT SAPHENOUS VEIN HARVEST, COMPLETION ANGIOGRAM; Surgeon: Mohsen Sarabia MD; Location: [facility] NEURO OR; Service: Cardiovascular CARDIAC CATHETERIZATION Left 09/05/2018 Procedure: Angio Lower Extremity; Surgeon: Ben Hahn MD; Location: [facility] TELEVISION 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 [1] Social History Socioeconomic History Marital status: Tobacco Use Smoking status: Never Smokeless tobacco: Never Vaping Use Vaping status: Never Used Substance and Sexual Activity Alcohol use: Not Currently Drug use: Never Sexual activity: Not Currently Social Drivers of Health Financial Resource Strain: Low Risk (06/21/2024) Received from [facility] Overall Financial Resource Strain (CARDIA) Difficulty of Paying Living Expenses: Not hard at all Food Insecurity: No Food Insecurity (06/21/2024) Received from [facility] Hunger Vital Sign Worried About Running Out of Food in the Last Year: Never true Ran Out of Food in the Last Year: Never true Transportation Needs: No Transportation Needs (06/21/2024) Received from [facility] PRAPARE - Transportation Lack of Transportation (Medical): No Lack of Transportation (Non-Medical): No Physical Activity: Insufficiently Active (06/21/2024) Received from [facility] Exercise Vital Sign Days of Exercise per Week: 7 days Minutes of Exercise per Session: 10 min Stress: No Stress Concern Present (06/21/2024) Received from [facility] [place] [employer] - Occupational Stress Questionnaire Feeling of Stress : Not at all Housing Stability: Low Risk (06/21/2024) Received from [facility] Housing Stability Vital Sign Unable to Pay for Housing in the Last Year: No Number of Times Moved in the Last Year: 0 Homeless in the Last Year: No documented in this encounter [facility] 03-17-2025 Progress note Formatting of [...] needed for any cardiac issues. [facility] 03-17-2025 Note [facility] Note 03/17/2025 Tristin Powell 1940 [id number] Assessment/Plan: Tristin Powell is a 85 y.o. male with a history of Peripheral Artery Disease s/p Bypass, Afib (Xarelto), Diastolic Heart Failure, Coronary Artery Disease s/p CABG, recent balloon angioplasty 03/12/2025,. presented to [facility] ED on 03/14/2025 from Vascular Surgery clinic with intractable right foot pain. Found to have critical right LE ischemia Critical right lower limb ischemia: History of PAD. Follows Dr. Beaver ([facility]) and Dr. Sarabia (Vascular Surgery) [...] dose. IV Dilaudid added. CAD: Followed by [facility] s/p 3 vessel coronary artery bypass [...] per Medication Reconciliation: Reviewed using patient interview, account technician Current living situation: home Expected Disposition: [...] major joint deformity: RLE tired leg and shredding machine tender to touch. Moving well with mild [...] Oral After evening (more content not included)... [facility] 03-17-2025 Note Formatting of this n ote might be different from the original. PHYSICAL THERAPY VISIT VARIANCE NOTE Attempted to see patient at this time, but unable secondary to: Awaiting Medical Clearance (comment) (scheduled for OR today). Will follow up as appropriate. [facility] 03-17-2025 Note Formatting of this n ote might be different from the original. OCCUPATIONAL THERAPY VISIT VARIANCE NOTE Attempted to see patient at this time, but unable secondary to: Awaiting Medical Clearance (Pending OR today). Will follow up as appropriate. [facility] 03-16-2025 Note VASCULAR SURGERY PRO [...] s/p left fem to peroneal bypass (2019, Monty), left TMA who presented to [facility] on 03/14/2025 with worsening RLE pain and [...] Beena Barraza MD General Surgery Resident, PGY-2 [facility] Please contact surgical general internal medicine doctor physician compensation analyst 5PM-6AM and weekends - #[phone] VTS Pager - [phone] Subjective NAEO. Is ready for surgery tomorrow, [...] and laboratory results reviewed AUTHENTICATED BY BEENA BARRAZA ON 03/16/2025 11:03:23 [facility] 03-16-2025 Note Endovascular team no te: [...] and rubor. He had undergone angiography in [place], with chronic occlusion of an aneurysm/ectatic right [...] bypass operation. In collaborative vascular discussions with Monty Butler, the family, myself this is felt [...] AUTHENTICATED BY MARY MAST, ON 03/16/2025 10:52:42 [facility] 03-16-2025 Note [facility] Note 03/16/2025 Tristin Powell 1940 [id number] Assessment/Plan: Tristin Powell is a 85 y.o. male with a history of Peripheral Artery Disease s/p Bypass, Afib (Xarelto), Diastolic Heart Failure, Coronary Artery Disease s/p CABG, Hypertension, CKD III, COPD, Prostate Cancer, and Insomnia. Patient had outpatient angiogram 03/12/25 with balloon angioplasty. He presented to [facility] ED on 03/14/2025 from Vascular Surgery clinic with intractable right foot pain. In ED: right YAMILE 0.5; 50-99% stenosis in right mid superficial femoral artery; WBC 3.5. Course prolonged due to need for angiogram and Xarelto washout. Peripheral Artery Disease: Followed by Dr. Beaver ([facility]) and Dr. Sarabia (Vascular Surgery) [...] additional for acute pain. CAD: Followed by [facility] s/p 3 vessel coronary artery bypass [...] GTT Medication Reconciliation: Reviewed using patient interview, account technician Current living situation: home Expected Disposition: [...] major joint deformity: RLE tired leg and shredding machine tender to touch. Moving well with mild [...] 159 -- 144* (more content not included)... [facility] 03-15-2025 Progress note Formatting of t [...] note author and KULDEEP Jean. [facility] 03-15-2025 Consult note Associated Order [...] Plan: Transportation Type: Auto Discharge Plan Status: OPTICIAN APPRENTICE consulted for discharge needs. PT recommending therapy 2-3 days per week. OT pending. OPTICIAN APPRENTICE met with pt at bedside to discuss HHC level of care. Pt agreeable HHC. Pt with no [preference of agency. Pt's son will be primary caregiver upon discharge and will transport pt home when medically ready. OPTICIAN APPRENTICE confirmed pt demographics including address on file, [...] we deliver your care?: No [facility] 03-15-2025 Note [facility] Note 03/15/2025 Tristin Powell 1940 [id number] Assessment/Plan: Tristin Powell is a 85 y.o. male with a history of Peripheral Artery Disease s/p Bypass, Afib (Xarelto), Diastolic Heart Failure, Coronary Artery Disease s/p CABG, Hypertension, CKD III, COPD, Prostate Cancer, and Insomnia. Patient had outpatient angiogram 03/12/25 with balloon angioplasty. He presented to [facility] ED on 03/14/2025 from Vascular Surgery clinic with intractable right foot pain. In ED: right YAMILE 0.5; 50-99% stenosis in right mid superficial femoral artery; WBC 3.5. Course prolonged due to need for angiogram and Xarelto washout. Peripheral Artery Disease: Followed by Dr. Beaver ([facility]) and Dr. Sarabia (Vascular Surgery) [...] additional for acute pain. CAD: Followed by [facility] s/p 3 vessel coronary artery bypass [...] GTT Medication Reconciliation: Reviewed using patient interview, account technician Current living situation: home Expected Disposition: [...] major joint deformity: RLE tired leg and shredding machine tender to touch. Moving well with mild [...] g/dL 11.7* 13.2* (more content not included)... [facility] 03-15-2025 Consult note Formatting of th is note is different from the original. 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 installer Therapy Services Needed After Discharge: Yes Intensity of boat canvas maker and installer Therapy: 2-3 days per week Anticipated Duration of boat canvas maker and installer Therapy: Duration 10 - 30 days PT [...] Standing Balance - Static: Contact guard assist Director Inbound Sales - Standing Static: wheeled walker Standing Balance - Dynamic: Contact guard assist Director Inbound Sales - Standing Dynamic: same counselor aid used for static standing tasks Bed Mobility Rolling: Supervision Supine to Sit: Supervision Sit to Supine: (patient sitting EOB) Director Inbound Sales: bedrails Transfers Sit to Stand: Contact guard assist Director Inbound Sales: wheeled walker Gait/Locomotion Gait Assistance: Contact guard [...] walker.) Prior Level of Function Level of [place] - Transfers/Ambulation/Mobility: Independent with community ambulation, Independent with household ambulation, Independent with functional transfers Level of [place] - ADLs: Independent Level of [place] - Homemaking: Independent Driving: Patient drives Vocational: [...] Arthritis Avascular necrosis of bone of hip ([facility]) Claudication COPD (chronic obstructive pulmonary disease) ([facility]) Coronary artery disease Herpes zoster Hyperlipidemia Hypertension PAD (peripheral artery disease) ([facility]) 01/21/2022 Posterior tibial tendinitis of right leg 11/07/2022 Prostate cancer ([facility]) Vascular disease Past Surgical History: Procedure Laterality Date 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/08/2018 Procedure: LEFT MIDFOOT AMPUTATION; Surgeon: Flynn Mann DPM; Location: [facility] OR; Service: Podiatry ANKLE SURGERY Left BYPASS PERONEAL FEMORAL Right 09/07/2018 Procedure: BYPASS PERONEAL FEMORAL, RIGHT SAPHENOUS VEIN HARVEST, COMPLETION ANGIOGRAM; Surgeon: Mohsen Sarabia MD; Location: [facility] OR; Service: Cardiovascular CARDIAC CATHETERIZATION Left 09/05/2018 Procedure: Angio Lower Extremity; Surgeon: Ben Hahn MD; Location: [facility] TELE[facility]ION CABINET FIN[facility]ER; Service: Cardiovascular CARDIAC SURGERY 2017 triple bypass EGD N/A 10/10/2018 Procedure: ESOPHAGOGASTRODUODENOSCOPY; Surgeon: Ben Jensen MD; [place] [facility] [place]; Service: Gastroenterology EYE SURGERY Right 2014 FOOT SURGERY ORTHOPEDIC SURGERY STENT PLACEMENT For [...] completion of Physical Therapy Plan. [facility] 03-15-2025 Note Peripheral Vascular Cardiology Inpatient Follow-up Heart & Vascular [facility] Group 03/15/2025 Mirna Fenton, [facility] Patient: Tristin Powell Date of : 1940 (85 y.o.) PCP: Flash Lovelace MD Assessment/Plan: Carotid stenosis, asymptomatic, bilateral Assessment & Plan Asymptomatic. No hx of CVA Non-invasive Studies: Carotid Duplex (04/2024): Left ICA with mild <50% stenosis of heterogenous plaque. Right ICA with moderate 50-69% stenosis of heterogenous plaque Coronary artery disease involving coronary bypass graft of [place] heart without angina pectoris Assessment & Plan [...] Recently underwent RLE angio on 03/12/25 via [facility] in [place] Non-invasive Studies: RLE arterial duplex (03/14/25): 50-99% [...] RLE angiograms dated 03/12/25 and 10/12/23 from [facility]. Plan for RLE angio +/- intervention 03/17/25, with Dr. Mast Continue asa and Plavix therapies We will continue to monitor over the weekend * PAD (peripheral artery disease) ([facility]) Assessment & Plan Longstanding, significant atherosclerotic disease with history of multiple endovascular and surgical interventions as outlined in the body of this note, please reference Plan: Continue ASA and statin therapies as prescribed. Subjective No acute events noted overnight. He is resting in bed comfortably. His exam remains stable. Repeat EKG Final Result by Interface, Lab Results In [facility] (03/15/2025 0701) Echocardiogram complete w contrast Final [...] Q4H While a (more content not included)... [facility] 03-14-2025 Emergency department Note Pt placed on 2L NC now [facility] 03-14-2025 Emergency department Note Pt placed on 2L NC now [facility] to write admission orders [id number] ED PROVIDER NOTE [facility] EMERGENCY DEPARTMENT Patient Name: Tristin Powell Age: [...] Course User Index [EK] Elaine Macdonald MD [facility] Data: I saw and evaluated the patient. [...] 113.4 kg (250 lb) - Refer to [facility] section above for additional physical exam data. [...] Arthritis Avascular necrosis of bone of hip ([facility]) Claudication COPD (chronic obstructive pulmonary disease) ([facility]) Coronary artery disease Herpes zoster Hyperlipidemia Hypertension PAD (peripheral artery disease) ([facility]) 01/21/2022 Posterior tibial tendinitis of right leg 11/07/2022 Prostate cancer ([facility]) Vascular disease Past Surgical History: Procedure Laterality Date 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/08/2018 Procedure: LEFT MIDFOOT AMPUTATION; Surgeon: Flynn Mann DPM; Location: [facility] OR; Service: Podiatry ANKLE SURGERY Left BYPASS PERONEAL FEMORAL Right 09/07/2018 Procedure: BYPASS PERONEAL FEMORAL, RIGHT SAPHENOUS VEIN HARVEST, COMPLETION ANGIOGRAM; Surgeon: Mohsen Sarabia MD; Location: [facility] OR; Service: Cardiovascular CARDIAC CATHETERIZATION Left 09/05/2018 Procedure: Angio Lower Extremity; Surgeon: Ben Hahn MD; Location: [facility] 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 CALMOSEPTINE 0.44-20.6 % OINT FLUTICASONE [...] correspondence this note was partially generated by [employer] voice recognition software and is inherently subject [...] Resource Strain: Low Risk (06/21/2024) Received from [facility] Overall Financial Resource Strain (CARDIA) Difficulty of Paying Living Expenses: Not hard at all Food Insecurity: No Food Insecurity (06/21/2024) Received from [facility] Hunger Vital Sign Worried About Running Out of Food in the Last Year: Never true Ran Out of Food in the Last Year: Never true Transportation Needs: No Transportation Needs (06/21/2024) Received from [facility] PRAPARE - Transportation Lack of Transportation (Medical): No Lack of Transportation (Non-Medical): No Physical Activity: Insufficiently Active (06/21/2024) Received from [facility] Exercise Vital Sign Days of Exercise per Week: 7 days Minutes of Exercise per Session: 10 min Stress: No Stress Concern Present (06/21/2024) Received from [facility] [place] [employer] - Occupational Stress Questionnaire Feeling of Stress : Not at all Housing Stability: Low Risk (06/21/2024) Received from [facility] Housing Stability Vital Sign Unable to Pay [...] All Patient Name: Tristin Powell MR #: [id number] Subjective: office nurse received call from daughter who expressed concern about patient losing his foot- he is in dire pain and his toes on his right foot are turning purple. Dr. Sarabia requested US Duplex Arterial RLE and ABIs, and here for office visit today documented in this encounter [facility] 03-14-2025 Progress note Formatting of t his note might be different from the original. Added to label maker schedule for 03/17/25, with Dr. Mast for a RLE angio +/- intervention. Orders placed. Consent signed and given to label maker. ASA and clopidogrel initiated. Again, no heparin gtt required unless needed in the setting of hx of paroxysmal a.fib (historically on Xarelto; however, has been held over the past week 2/2 RLE angio at [facility] as performed on 03/12/25). Additionally, please accept [...] from toes to the ankle. [facility] 03-14-2025 Progress note Formatting of t his note might be different from the original. This nurse was able to get RLE angiogram from March 12, 2025 from [facility] sent electronically. This was sent to Juana Escobar NP. She was able to open and view. Images sent to appropriate staff per Juana Escobar CNP. Called and notified the patient's daughter that she does not have to get the disc from [place] and bring to [facility]. [facility] 03-14-2025 Evaluation + Plan note Associated Problem(s): Carotid stenosis, asymptomatic, bilateral Asymptomatic. No hx of CVA Non-invasive Studies: Carotid Duplex (04/2024): Left ICA with mild <50% stenosis of heterogenous plaque. Right ICA with moderate 50-69% stenosis of heterogenous plaque [facility] 03-14-2025 Evaluation + Plan note Associated Problem(s): Coronary artery disease involving coronary bypass graft of [place] heart without angina pectoris S/p 3v CABG in 2017 Asymptomatic [facility] 03-14-2025 Evaluation + Plan note [...] Recently underwent RLE angio on 03/12/25 via [facility] in [place] Non-invasive Studies: RLE arterial duplex (03/14/25): 50-99% [...] to monitor over the weekend [facility] 03-14-2025 Evaluation + Plan note Associated Problem(s): PAD (peripheral artery disease) (HCC) Longstanding, significant atherosclerotic disease with history of multiple endovascular and surgical interventions as outlined in the body of this note, please reference Plan: Continue ASA and statin therapies as prescribed. [facility] 03-14-2025 Consult note Associated Order (s): IP CONSULT TO CARDIOLOGY - PERIPHERAL VASC DISEASE Images from the original note were not included. Peripheral Vascular Cardiology Inpatient Consult Heart & Vascular [facility] 03/14/2025 Demetrice Escobar CNP [facility] [place] [address] Patient: Tristin Powell Date of : 1940 [...] Recently underwent RLE angio on 03/12/25 via [facility] in [place] Non-invasive Studies: RLE arterial duplex (03/14/25): 50-99% [...] RLE angiograms dated 03/12/25 and 10/12/23 from [facility]. Will review non-invasive studies as obtained earlier today as well as [facility] RLE angiograms with PV attending. Final disposition [...] Vas Surg Admission requested by Dr. Long, [facility] Surg, based on outpatient visit conducted earlier today in view of complaints of excruciating right foot pain (particularly right hallux) and concerns for discoloration and digital ischemia. Pain NOT relieved with opioids. Per ED MD, no surgical options, PV consult recommended by [facility] Surg for consideration of LE angio. By chart review, recently underwent formal LE angio on 03/12/25 via [facility]. Follows with Dr. Carvalho, cardiology, at [facility]. Last OV 11/2024. Son is present at [...] was drawn out. Relevant Vascular History: 06/2024: [facility] demonstrating stable coronary artery disease. Patent [...] SVG to PDA) via [facility] 10/2007: [facility] with MARIA ESTHER to LAD and LCx Objective Imaging: I independently reviewed the non-invasive vascular studies and agree with the interpretation(s) ECG 12 Lead Final Result by Interface, Lab Results In [place] [facility] (11/07/2022 1139) Echocardiogram complete w contrast [...] Arthritis Avascular necrosis of bone of hip ([facility]) Claudication COPD (chronic obstructive pulmonary disease) ([facility]) Coronary artery disease Herpes zoster Hyperlipidemia Hypertension PAD (peripheral artery disease) ([facility]) 01/21/2022 Posterior tibial tendinitis of right leg 11/07/2022 Prostate cancer ([facility]) Vascular disease Past Surgical History: Procedure Laterality Date 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/08/2018 Procedure: LEFT MIDFOOT AMPUTATION; Surgeon: Flynn Mann DPM; Location: [facility] OR; Service: Podiatry ANKLE SURGERY Left BYPASS PERONEAL FEMORAL Right 09/07/2018 Procedure: BYPASS PERONEAL FEMORAL, RIGHT SAPHENOUS VEIN HARVEST, COMPLETION ANGIOGRAM; Surgeon: Mohsen Sarabia MD; Location: [facility] NEURO OR; Service: Cardiovascular CARDIAC CATHETERIZATION Left 09/05/2018 Procedure: Angio Lower Extremity; Surgeon: Ben Hahn MD; Location: [facility] TELEVISION CABINET FINISHER; Service: Cardiovascular CARDIAC SURGERY 2017 triple bypass EGD N/A 10/10/2018 Procedure: ESOPHAGOGASTRODUODENOSCOPY; Surgeon: Ben Jensen MD; [place] [facility] [place]; Service: Gastroenterology EYE SURGERY Right 2015 [...] (two) times a day 08/29 tab . AZELASTINE (ASTELIN) 137 MCG (0.1 [...] to contact me, my mobile number is [phone]. Respectfully, Demetrice Martinez APRN [facility] Heart and Vascular Physicians [1] [...] fibrillation, and advanced PAD who presents with [place] 4 critical limb threatening ischemia of the [...] He underwent angiography 2 days ago in [place] where he was found to have progressive [...] Arthritis Avascular necrosis of bone of hip ([facility]) Claudication COPD (chronic obstructive pulmonary disease) ([facility]) Coronary artery disease Herpes zoster Hyperlipidemia Hypertension PAD (peripheral artery disease) ([facility]) 01/21/2022 Posterior tibial tendinitis of right leg 11/07/2022 Prostate cancer ([facility]) Vascular disease Allergies: Doxycycline and Gabapentin Current [...] artery as it enters the foot. Impression: [place] 4 critical limb threatening ischemia Advanced peripheral [...] vascular surgery colleagues I personally performed a [id number]-sb-[id number] diagnostic evaluation on this patient on the [...] urea (CARMOL) 40 % Crea [facility] 03-14-2025 History and physical note [place] History and Physical Note 03/14/25 Tristin Powell 1940 [id number] Assessment/Plan: Tristin Powell is a 85 y.o. male with a history of Peripheral Artery Disease s/p Bypass, Afib (Xarelto), Diastolic Heart Failure, Coronary Artery Disease s/p CABG, Hypertension, CKD III, COPD, Prostate Cancer, and Insomnia. Patient had outpatient angiogram 03/12/25 with balloon angioplasty. He presented to [facility] ED on 03/14/2025 from Vascular Surgery clinic with intractable right foot pain. In ED: right YAMILE 0.5; 50-99% stenosis in right mid superficial femoral artery; WBC 3.5. Course prolonged due to need for angiogram and Xarelto washout. Peripheral Artery Disease: Followed by Dr. Beaver ([facility]) and Dr. Sarabia (Vascular Surgery) [...] additional for acute pain. CAD: Followed by [facility]iology s/p 3 vessel coronary artery bypass grafting in 2017 and 7 stents. Chronic Diastolic Heart Failure: TTE 04/2024: LVEF 55% grade 1 diastolic dysfunction, moderate aortic regurgitation, moderate mitral regurgitation, mild tricuspid regurgitation. Appeared euvolemic on admission. Continued home losartan and lasix every other day. Paroxysmal Afib: [id number] of 5. Xarelto as above (no indication [...] lovenox. Medication Reconciliation: Reviewed using patient interview, account technician Current living situation: home Expected Disposition: [...] personally discussed with Juana (Peripheral Vascular Cardiology [facility]) and Dr. Barraza (Vascular Surgery) - likely angiogram on Monday; no surgical intervention. ROS: 10 systems were reviewed and negative, except as noted above. Past Medical, Surgical, Social, Family History: Past Medical History: Diagnosis Date Arthritis Avascular necrosis of bone of hip (HCC) Claudication COPD (chronic obstructive pulmonary disease) (HCC) Coronary artery disease Herpes zoster Hyperlipidemia Hypertension PAD (peripheral artery disease) ([facility]) 01/21/2022 Posterior tibial tendinitis of right leg 11/07/2022 Prostate cancer ([facility]) Vascular disease Past Surgical History: Procedure Laterality Date 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/08/2018 Procedure: LEFT MIDFOOT AMPUTATION; Surgeon: Flynn Mann DPM; Location: [facility] OR; Service: Podiatry ANKLE SURGERY Left BYPASS PERONEAL FEMORAL Right 09/07/2018 Procedure: BYPASS PERONEAL FEMORAL, RIGHT SAPHENOUS VEIN HARVEST, COMPLETION ANGIOGRAM; Surgeon: Mohsen Sarabia MD; Location: [facility] NEURO OR; Service: Cardiovascular CARDIAC CATHETERIZATION Left 09/05/2018 Procedure: Angio Lower Extremity; Surgeon: Ben Hahn MD; Location: [facility] TELEVISION 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 [1] Social History Socioeconomic History Marital status: Tobacco Use Smoking status: Never Smokeless tobacco: Never Vaping Use Vaping status: Never Used Substance and Sexual Activity Alcohol use: Not Currently Drug use: Never Sexual activity: Not Currently Social Drivers of Health Financial Resource Strain: Low Risk (06/21/2024) Received from [facility] Overall Financial Resource Strain (CARDIA) Difficulty of Paying Living Expenses: Not hard at all Food Insecurity: No Food Insecurity (06/21/2024) Received from [facility] Hunger Vital Sign Worried About Running Out of Food in the Last Year: Never true Ran Out of Food in the Last Year: Never true Transportation Needs: No Transportation Needs (06/21/2024) Received from [facility] PRAPARE - Transportation Lack of Transportation (Medical): No Lack of Transportation (Non-Medical): No Physical Activity: Insufficiently Active (06/21/2024) Received from [facility] Exercise Vital Sign Days of Exercise per Week: 7 days Minutes of Exercise per Session: 10 min Stress: No Stress Concern Present (06/21/2024) Received from [facility] [place] [employer] - Occupational Stress Questionnaire Feeling of Stress : Not at all Housing Stability: Low Risk (06/21/2024) Received from [facility] Housing Stability Vital Sign Unable to Pay for Housing in the Last Year: No Number of Times Moved in the Last Year: 0 Homeless in the Last Year: No [facility] 03-14-2025 Note [facility] History and P hysical Note 03/14/25 Tristin Hortensia Sherry 1940 [id number] Assessment/Plan: Tristin Powell is a 85 y.o. male with a history of Peripheral Artery Disease s/p Bypass, Afib (Xarelto), Diastolic Heart Failure, Coronary Artery Disease s/p CABG, Hypertension, CKD III, COPD, Prostate Cancer, and Insomnia. Patient had outpatient angiogram 03/12/25 with balloon angioplasty. He presented to [facility] ED on 03/14/2025 from Vascular Surgery clinic with intractable right foot pain. In ED: right YAMILE 0.5; 50-99% stenosis in right mid superficial femoral artery; WBC 3.5. Course prolonged due to need for angiogram and Xarelto washout. Peripheral Artery Disease: Followed by Dr. Beaver ([facility]) and Dr. Sarabia (Vascular Surgery) [...] additional for acute pain. CAD: Followed by [facility] s/p 3 vessel coronary artery bypass grafting in 2017 and 7 stents. Chronic Diastolic Heart Failure: TTE 04/2024: LVEF 55% grade 1 diastolic dysfunction, moderate aortic regurgitation, moderate mitral regurgitation, mild tricuspid regurgitation. Appeared euvolemic on admission. Continued home losartan and lasix every other day. Paroxysmal Afib: [id number] of 5. Xarelto as above (no indication [...] lovenox. Medication Reconciliation: Reviewed using patient interview, account technician Current living situation: home Expected Disposition: [...] monitoring and titration. I personally discussed with Junaa (Peripheral Vascular Cardiology [employer]) and Dr. Barraza (Vascular Surgery) - likely angiogram on Monday; no surgical intervention. ROS: 10 systems were reviewed and negative, (more content not included)... [facility] 03-14-2025 Emergency department Note MEDONE to write admission orders [id number] [facility] 03-14-2025 Physician Emergency department Note ED PROVIDER NOTE [facility] EMERGENCY DEPARTMENT Patient Name: Tristin Powell Age: [...] Course User Index [EK] Elaine Macdonald MD [facility] Data: I saw and evaluated the patient. [...] 113.4 kg (250 lb) - Refer to [facility] section above for additional physical exam data. [...] (HCC) Claudication COPD (chronic obstructive pulmonary disease) ([facility]) Coronary artery disease Herpes zoster Hyperlipidemia Hypertension PAD (peripheral artery disease) ([facility]) 01/21/2022 Posterior tibial tendinitis of right leg 11/07/2022 Prostate cancer ([facility]) Vascular disease Past Surgical History: Procedure Laterality Date 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/08/2018 Procedure: LEFT MIDFOOT AMPUTATION; Surgeon: Flynn Mann DPM; Location: [facility] OR; Service: Podiatry ANKLE SURGERY Left BYPASS PERONEAL FEMORAL Right 09/07/2018 Procedure: BYPASS PERONEAL FEMORAL, RIGHT SAPHENOUS VEIN HARVEST, COMPLETION ANGIOGRAM; Surgeon: Mohsen Sarabia MD; Location: [facility] NEUR[facility] OR; Service: Cardiovascular CARDIAC CATHETERIZATION Left 09/05/2018 Procedure: Angio Lower Extremity; Surgeon: Ben Hahn MD; Location: [facility] TELEVISION CABINET FINISHER; Service: Cardiovascular CARDIAC SURGERY 2017 triple bypass EGD N/A 10/10/2018 Procedure: ESOPHAGOGASTRODUODENOSCOPY; Surgeon: Ben Jensen MD; [place] [facility] [place]; Service: Gastroenterology EYE SURGERY Right 2015 [...] correspondence this note was partially generated by [employer] voice recognition software and is inherently subject [...] Resource Strain: Low Risk (06/21/2024) Received from [facility] Overall Financial Resource Strain (CARDIA) Difficulty of Paying Living Expenses: Not hard at all Food Insecurity: No Food Insecurity (06/21/2024) Received from [facility] Hunger Vital Sign Worried About Running Out of Food in the Last Year: Never true Ran Out of Food in the Last Year: Never true Transportation Needs: No Transportation Needs (06/21/2024) Received from [facility] PRAPARE - Transportation Lack of Transportation (Medical): No Lack of Transportation (Non-Medical): No Physical Activity: Insufficiently Active (06/21/2024) Received from [facility] Exercise Vital Sign Days of Exercise per Week: 7 days Minutes of Exercise per Session: 10 min Stress: No Stress Concern Present (06/21/2024) Received from [facility] [place] [employer] - Occupational Stress Questionnaire Feeling of Stress : Not at all Housing Stability: Low Risk (06/21/2024) Received from [facility] Housing Stability Vital Sign Unable to Pay for Housing in the Last Year: No Number of Times Moved in the Last Year: 0 Homeless in the Last Year: No [2] Allergies Allergen Reactions Doxycycline Elevated blood pressure, GI intolerance/ nausea/vomiting Gabapentin GI Intolerance [facility] 03-14-2025 History of Present illness Narrative [facility] Release form faxed to [phone]. Fax confirmation received. documented in this encounter [facility] 03-14-2025 Consult note Formatting of [...] s/p left fem to peroneal bypass (2019, Monty), left TMA who presented to [facility] on 03/14/2025 with worsening RLE pain and discoloration. Arterial Duplex (03/14/25): 50-99% stenosis in the right mid SFA YAMILE's (03/14/25): Right YAMILE is 0.50. Left YAMILE is 0.55. CTLI IV Aortic Stenosis -Patient w/ notable history of PAD s/p left fem to peroneal bypass (2019, Monty) p/w RLE rest pain x 3 days. [...] Beena Barraza MD General Surgery Resident, PGY-2 [facility] Please contact surgical general internal medicine doctor physician compensation analyst 5PM-6AM and weekends - #[phone] AZS Pager - [phone] Admitted with these risk variables:None. Please see [...] Arthritis Avascular necrosis of bone of hip ([facility]) Claudication COPD (chronic obstructive pulmonary disease) ([facility]) Coronary artery disease Herpes zoster Hyperlipidemia Hypertension PAD (peripheral artery disease) ([facility]) 01/21/2022 Posterior tibial tendinitis of right leg 11/07/2022 Prostate cancer ([facility]) Vascular disease Past Surgical History: Procedure Laterality Date 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/08/2018 Procedure: LEFT MIDFOOT AMPUTATION; Surgeon: Flynn Mann DPM; Location: [facility] OR; Service: Podiatry ANKLE SURGERY Left BYPASS PERONEAL FEMORAL Right 09/07/2018 Procedure: BYPASS PERONEAL FEMORAL, RIGHT SAPHENOUS VEIN HARVEST, COMPLETION ANGIOGRAM; Surgeon: Mohsen Sarabia MD; Location: [facility] NEURO OR; Service: Cardiovascular CARDIAC CATHETERIZATION Left 09/05/2018 Procedure: Angio Lower Extremity; Surgeon: Ben Hahn MD; Location: [facility] TELEVISION CABINET FINISHER; Service: Cardiovascular CARDIAC SURGERY 2017 triple bypass EGD N/A 10/10/2018 Procedure: ESOPHAGOGASTRODUODENOSCOPY; Surgeon: Ben Jensen MD; [place] [facility] [place]; Service: Gastroenterology EYE SURGERY Right 2015 [...] Resource Strain: Low Risk (06/21/2024) Received from [facility] Overall Financial Resource Strain (CARDIA) Difficulty of Paying Living Expenses: Not hard at all Food Insecurity: No Food Insecurity (06/21/2024) Received from [facility] Hunger Vital Sign Worried About Running Out of Food in the Last Year: Never true Ran Out of Food in the Last Year: Never true Transportation Needs: No Transportation Needs (06/21/2024) Received from [facility] PRAPARE - Transportation Lack of Transportation (Medical): No Lack of Transportation (Non-Medical): No Physical Activity: Insufficiently Active (06/21/2024) Received from [facility] Exercise Vital Sign Days of Exercise per Week: 7 days Minutes of Exercise per Session: 10 min Stress: No Stress Concern Present (06/21/2024) Received from [facility] [place] [employer] - Occupational Stress Questionnaire Feeling of Stress : Not at all Housing Stability: Low Risk (06/21/2024) Received from [facility] Housing Stability Vital Sign Unable to Pay [...] personally examined the patient and agree with resident/SHRUB GROWER/PA assessment and plan with the following additional findings. Pt known to me with CLTI of the RLE with rest pain and early ischemic skin changes. Plan for R fem tib bypass on Monday for limb salvage [facility] 03-14-2025 History of Present illness Narrative Spoke with Edwina from Medical Records from [facility] to obtain RLE Angiogram from 03/12/25. This Nurse was informed that for imaging if daughter is not POA that the patient would need to sign a release form and have the patient's sign it. She explained to this Nurse that the form will be faxed to [phone]. Edwina also informed this Nurse that they will fax the report for the RLE Angiogram once it is signed. This Nurse verbalized understanding and explained to Edwina that our office will reach out to the daughter to have her cook pickled meat the disc for the imaging of RLE Angiogram. Edwina verbalized understanding. All questions answered. documented in this encounter [facility] 03-14-2025 Emergency department Triage note [...] All Patient Name: Tristin Powell MR #: [id number] Subjective: office nurse received call from daughter who expressed concern about patient losing his foot- he is in dire pain and his toes on his right foot are turning purple. Dr. Sarabia requested US Duplex Arterial RLE and ABIs, and here for office visit today [facility] 03-14-2025 History of Present illness Narrative Patient Name: Tristin Powell MR #: [id number] Subjective: office nurse received call from daughter [...] had a right angiogram attempted at the [facility] on Monday03/12/2025 but was told they [...] this Will attempt to get angiogram from [facility] from 03/12/2025; may need to repeat [...] 03/14/2025 documented in this encounter [facility] 03-14-2025 Note Patient Name: Tristin Powell MR #: [id number] Subjective: office nurse received call from daughter [...] had a right angiogram attempted at the [facility] on Monday03/12/2025 but was told they [...] this Will attempt to get angiogram from [facility] from 03/12/2025; may need to repeat [...] groin dsg intact Ken Johnson CNP 03/14/2025 AUTHENTICATED BY KEN JOHNSON, ON 03/14/2025 11:47:35 [facility] 03-13-2025 History of Present illness Narrative Received [...] 7:45 AM arrival time in the [place] on the garden level. His ABIs will follow at 9 AM. Then his office visit with Ken Johnson CNP will be at 10 AM on the 5th floor of the [facility], [address]. Instructions provided for how to get to testing and office visit. Daughter verbalized understanding and expressed appreciation. All questions answered. documented in this encounter [facility] 03-11-2025 Evaluation note Diagnosis Onset Date Resolution Peripheral vascular disease acute March 11, 2025 11:20am [facility] Work Phone: 1(349) 246-570606-19-2025 Telephone encounter Note* Telephone Encounter - Megan Douglass - 02/13/2025 3:28 PM EDT zolpidem (Ambien) 10 MG tablet Hydrocodone 5-352 [place] [id number] Miscellaneous Notes* Telephone Encounter - Megan Douglass - 02/13/2025 3:28 PM EDT zolpidem (Ambien) 10 MG tablet Hydrocodone 5-352 [place] documented in this encounterMiss[id number] History of Present illness Narrative* Bhaskar Wilson NP - 01/09/2025 10:30 AM EDT Images from [...] 2009 Avascular necrosis of bone of hip ([facility]) 09/04/2011 Right hip Right hip CAD (coronary artery disease) ([facility]) 2013 Carotid artery disease ([facility]) Cataract 2014 Cellulitis 01/19/2022 [facility] Cellulitis LLE Colon polyps 2012 Critical lower limb ischemia ([facility]) 09/04/2018 Last Assessment & Plan: Pt s/p LLE angiogram with Dr Hahn who feels that the pt has no further endovascular options. He has consulted Dr. Sarabia for a possible tibial bypass. Pt s/p LLE critical limb ischemia [place] class 4 rest pain with distal discoloration to histoes Gangrene of left foot ([facility]) 10/04/2018 Groin hematoma 2013 RT Femoral groin Hematoma H/O myocardial perfusion scan 07/09/2019 LVEF 56% Myocardial perfusion imaging shows a defect in Apical wall Herpes zoster 09/04/2011 History of being hospitalized 12/06/2020 Strep Pneumonia, Resp. Failure - [facility] History of being hospitalized [place] - [facility] 07/15/2021-07/16/2021 History of coronary angiogram [...] incomplete bowel prep Diverticulosis Dr. Rowe at [facility] COLONOSCOPY W/ POLYPECTOMY 2011 CORONARY ARTERY [...] HISTORY 04/25/[address] Hahn [place] MEDICATION MANAGEMENT 11/2020 Multi resistant Strep Pneumonia, [...] No follow-ups on file. documented in this encounterMiss[id number] Telephone encounter Note* Telephone Encounter - Megan Douglass - 01/02/2025 10:43 AM EDT oxyCODONE-acetaminophen (Percocet) 5-325 MG tablet [ [employer] [place] [id number] Miscellaneous Notes* Telephone Encounter - Megan Douglass - 01/02/2025 10:43 AM EDT oxyCODONE-acetaminophen (Percocet) 5-325 MG tablet [ [employer] [place] documented in this encounterMissouri Baptist Hospital-SullivanUlwjixunik34-27-1824 NoteUT Cardiology - [facility] Subjective Tristin Powell is a 84 [...] artery disease involving coronary bypass graft of eyak heart without angina pectoris Coronary artery disease involving eyak coronary artery of eyak heart without angina pectoris Coronary atherosclerosis Critical [...] pain Paresthesia of skin Paroxysmal atrial fibrillation ([facility]/HCC) Phantom limb pain ([facility]) Polymyalgia rheumatica Primary osteoarthritis of right hip Routine general medical examination at health care facility Seasonal allergic rhinitis Sinusitis Stage 3a chronic kidney disease ([facility]) Acute cystitis without hematuria Benign essential hypertension Other thrombophilia NSTEMI (non-ST elevated myocardial infarction) ([facility]) Hx of CABG Coronary artery disease Acquired absence of left leg below knee ([facility]) Other complications of amputation stump ([facility]) Pulmonary hypertension, unspecified ([facility]) Secondary hypercoagulable state Bronchiectasis, uncomplicated ([facility]/HCC) Chronic diastolic (congestive) heart failure ([facility]) Family History Problem Relation Name Age of [...] instent restenosis. He then underwent CABG at [facility] in 2016 (CHAVEZ to diagonal, SVG [...] a yellow jacket and he went to [facility] for evaluation. He had mildly elevated [...] he feels good. Cuca (more content not included)...[facility] 11-26-2024 Telephone encounter Note* Telephone Encounter - LEONARDA Villavicencio - 11/26/2024 1:04 PM EDT OARRS reviewed, Rx sent into patient's pharmacy. Albuterol also sent. [facility][id number] Miscellaneous Notes* Telephone Encounter - LEONARDA Villavicencio - 11/26/2024 1:04 PM EDT OARRS reviewed, Rx sent into patient's pharmacy. Albuterol also sent. * Telephone Encounter - Megan Douglass - 11/26/2024 10:31 AM EDT oxyCODONE-acetaminophen (Percocet) 5-325 MG tablet [place] documented in this encounterMissouri Baptist Hospital-[id number] Telephone encounter Note* Telephone Encounter - Megan Douglass - 11/26/2024 10:31 AM EDT oxyCODONE-acetaminophen (Percocet) 5-325 MG tablet [employer] [place] [facility] [id number] History of Present illness Narrative* Elaine Saab [...] States this prescription needs to go to [facility] in [place], [place]. States all other prescriptions go to [facility] pharmacy. Medications reconciled with pt. Pt also needs refill on albuterol HFA 90 mcg/act inhaler. This is to be sent to [facility]. * LEONARDA Villavicencio - 11/25/2024 9:54 AM EDT Will send meds in for pt. documented in this encounterMissouri Baptist Hospital-[id number] Telephone encounter Note* Telephone Encounter - Megan Douglass - 10/21/2024 9:32 AM EST Pt scheduled [facility][id number] Miscellaneous Notes* Telephone Encounter - Megan Douglass - 10/21/2024 9:32 AM EST Pt scheduled * Telephone Encounter - LEONARDA Villavicencio - 10/18/2024 12:38 PM EST Please help pt get set up with Dr. Lovelace for medication follow up appointment in October. OARRS reviewed, Rx sent into patient's pharmacy. documented in this encounterMissouri Baptist Hospital-[id number] Telephone encounter Note* Telephone Encounter - LEONARDA Villavicencio - 10/18/2024 12:38 PM EST Please help pt get set up with Dr. Lovelace for medication follow up appointment in October. OARRS reviewed, Rx sent into patient's pharmacy. [facility]-SullivanDfwjwmisql71-10-8859 History of Present illness Narrative* Ludivina Garcia RN - 09/23/2024 1:09 PM EST Spoke with Nurse from Dr. Beaver's office with [facility] and requested reports for ABIs and US Duplex Bypass Graft LLE be faxed to [phone]. Staff verbalized understanding. All questions answered. documented in this [id number] Telephone encounter Note* Telephone Encounter - LEONARDA Villavicencio - 09/13/2024 12:11 PM EST OARRS reviewed, Rx sent into patient's pharmacy. [facility]-[id number] Miscellaneous Notes* Telephone Encounter - LEONARDA Villavicencio - 09/13/2024 12:11 PM EST OARRS reviewed, Rx sent into patient's pharmacy. * Telephone Encounter - Cindi Oscar - 09/12/2024 1:32 PM EST oxyCODONE-acetaminophen (Percocet) 5-325 MG tablet to sebastien dougherty documented in this encounterMissouri Baptist Hospital-[id number] Telephone encounter Note* Telephone Encounter - Cinditoby Oscar - 09/12/2024 1:32 PM EST oxyCODONE-acetaminophen (Percocet) 5-325 MG tablet to sebastien dougherty [facility][id number] History of Present illness Narrative* Ludivina Garcia RN - 08/20/2024 12:50 PM EST Lvm for staff at [facility] V[facility] Surgery with Dr. Beaver's office to clarify if patient already completed his ABIs and US Duplex Bypass Graft LLE. Left direct number for call back. documented in this [id number] History of Present illness Narrative* Flash Lovelace [...] includes PVD. There is no history of CAD/PA orCVA. There is no history of a [...] 2009 Avascular necrosis of bone of hip (CMS/HCC) 09/04/2011 Right hip Right hip CAD (coronary artery disease) ([facility]) 2013 Carotid artery disease ([facility] Cataract 2014 Cellulitis 01/19/2022 [facility] Cellulitis LLE Colon polyps 2012 Critical lower limb ischemia ([facility]) 09/04/2018 Last Assessment & Plan: Pt s/p LLE angiogram with Dr Hahn who feels that the pt has no further endovascular options. He has consulted Dr. Sarabia for a possible tibial bypass. Pt s/p LLE critical limb ischemia [place] class 4 rest pain with distal discoloration to histoes Gangrene of left foot ([facility]) 10/04/2018 Groin hematoma 2013 RT Femoral groin Hematoma H/O myocardial perfusion scan 07/09/2019 LVEF 56% Myocardial perfusion imaging shows a defect in Apical wall Herpes zoster 09/04/2011 History of being hospitalized 12/06/2020 Strep Pneumonia, Resp. Failure - [facility] History of being hospitalized [place] - [facility] 07/15/2021-07/16/2021 History of coronary angiogram [...] incomplete bowel prep Diverticulosis Dr. Rowe at [facility] COLONOSCOPY W/ POLYPECTOMY 2011 CORONARY ARTERY [...] HISTORY 04/25/[address] Hahn [place] MEDICATION MANAGEMENT 11/2020 Multi resistant Strep Pneumonia, [...] Relevant Orders Influenza, high-dose seasonal, quadrivalent, PF (XUT403) (Fluzone High Dose Quad [place] 0.7mL dose) (Completed) No follow-ups on file. documented in this encounterMissouri Baptist Hospital-[id number] Telephone encounter Note* Telephone Encounter - Megan Douglass - 08/06/2024 2:54 PM EST oxyCODONE-acetaminophen (Percocet) 5-325 MG tablet zolpidem (Ambien) 10 MG tablet [facility] [place] [facility]-[id number] Miscellaneous Notes* Telephone Encounter - Megan Douglass - 08/06/2024 2:54 PM EST oxyCODONE-acetaminophen (Percocet) 5-325 MG tablet zolpidem (Ambien) 10 MG tablet [employer] [place] documented in this encounterMissouri Baptist Hospital-[id number] NoteUT Cardiology - [facility] Subjective Tristin Powell is a 84 [...] artery disease involving coronary bypass graft of eyak heart without angina pectoris Coronary artery disease involving eyak coronary artery of eyak heart without angina pectoris Coronary atherosclerosis Critical [...] instent restenosis. He then underwent CABG at [facility] in 2016 (CHAVEZ to diagonal, SVG [...] a yellow jacket and he went to [facility] for evaluation. He had mildly elevated [...] joint pain, myalgias and (more content not included)...[facility]11-13-2024 Note Patient: Tristin Powell Procedure Information Date/Time: 07/10/24929 Procedure: Coronary angiography - PC APPROVED Location: [facility] TELEVISION CABINET FINISHER 3 / [facility] (Cath) Providers: Eliezer Carvalho MD Clinical information reviewed: Allergies Meds Physical Exam Airway Mallampati: III TM distance: >3 FB Neck ROM: full Cardiovascular Rhythm: regular Rate: normal Dental Pulmonary Abdominal Anesthesia Plan ASA 3 (Conscious sedation) Anesthetic plan and risks discussed with patient. Use of blood products discussed with patient who. Plan discussed with attending. Additional Equipment RequestsOhio [facility] Hospital11-[facility]-2024 Telephone encounter Note* Telephone Encounter - LEONARDA Villavicencio - 07/05/2024 9:35 AM EST OARRS reviewed, Rx sent into patient's pharmacy. [facility]-[id number] Miscellaneous Notes* Telephone Encounter - LEONARDA Villavicencio - 07/05/2024 9:35 AM EST OARRS reviewed, Rx sent into patient's pharmacy. * Telephone Encounter - Cindi Oscar - 07/05/2024 9:18 AM EST oxyCODONE-acetaminophen (Percocet) 5-325 MG tablet to [place] [employer] documented in this encounterMissouri Baptist Hospital-[id number] Telephone encounter Note* Telephone Encounter - Cindi Oscar - 07/05/2024 9:18 AM EST oxyCODONE-acetaminophen (Percocet) 5-325 MG tablet to [place] [employer][id number] Telephone encounter Note* Telephone Encounter - Megan Douglass - 06/17/2024 10:04 AM EDT Patient called requesting a zpack due to a cold. He asked something to be sent into [facility] [place]. [facility]-[id number] Miscellaneous Notes* Telephone Encounter - Megan Douglass - 06/17/2024 10:04 AM EDT Patient called requesting a zpack due to a cold. He asked something to be sent into [employer] in [place]. documented in this encounterMissouri Baptist Hospital-[id number] NoteUT Cardiology [facility] Subjective Tristin Powell is a 84 y.o. year old male patient being seen for 6 mo follow up CAD, PAD, AAA, HTN, and HLD. Had lipid panel Sep, 2023. He is now seeing vascular surgery in [place], Dr. Beaver. Patient Active Problem List Diagnosis Abdominal pain Chest pain Aortic valve regurgitation Mitral valve regurgitation Avascular necrosis of bone of hip (CMS/HCC) Community acquired pneumonia of left lower lobe of lung Contusion Hematoma of arm, left, initial encounter Coronary artery disease involving coronary bypass graft of eyak heart without angina pectoris Coronary artery disease involving eyak coronary artery of eyak heart without angina pectoris Coronary atherosclerosis Critical [...] instent restenosis. He then underwent CABG at [facility] in 2017 (CHAVEZ to diagonal, SVG [...] stress ECHO that could be done at [facility]. He has not had this done yet as he notes his vascular surgery is on hold at the moment and they are monitoring things. 05/28/2024 Since last seen, pt presented to [facility] with c/o chest pain. He was stung by a yellow jacket. 4 hours later he developed sharp stabbing chest pains that lasted seconds. This happened again 2 hours later. He went to [facility] for further evaluation. He has had no further episodes of chest pain. Review of Systems Cardiovascular (more content not included)...[facility] 05-28-2024 NotePt is here for a follow up after being in [facility]. Pt has HLD, HNT, and CAD. Pt denies chest pain, sob, dizziness. Review of Systems Cardiovascular: Positive for claudication and leg swelling. Respiratory: Positive for wheezing. Hematologic/Lymphatic: Bruises/bleeds easily. Musculoskeletal: Positive for arthritis, back pain, joint pain, myalgias and neck pain. All other systems reviewed and are negative.[facility] 05-21-2024 History of Present illness Narrative* LEONARDA Villavicencio - 05/21/2024 1:00 PM EDT HPI Med Refill Additional comments: Oxycodone Last edited by Wendy Tubbs LPN on 05/21/2024 1:07 PM. Subjective Patient ID: Tristin Powell is a 84 y.o. male who presents for hospital follow up. Flowsheet Row Patient Outreach from 05/16/2024 in [employer] with Mary Rodriguez LPN Hospital Information Discharged To: Home Setting Discharge [facility] Diagnosis Chest pain, HTN, CAD, paroximal A-Fib [...] went to a lung specialist down in [place] and after the repeat test was told [...] morning. [DISCONTINUED] ergocalciferol (Vitamin D-2) 1.25 MG (48553 UT) capsule Take 50,000 Units by mouth [...] 2009 Avascular necrosis of bone of hip ([facility]) 09/04/2011 Right hip Right hip CAD (coronary artery disease) ([facility]) 2014 Carotid artery disease ([facility]) Cataract 2014 Cellulitis 01/19/2022 [facility] Cellulitis LLE Colon polyps 2011 Critical lower limb ischemia ([facility]) 09/04/2018 Last Assessment & Plan: Pt s/p LLE angiogram with Dr Hahn who feels that the pt has no further endovascular options. He has consulted Dr. Sarabia for a possible tibial bypass. Pt s/p LLE critical limb ischemia [place] class 4 rest pain with distal discoloration to histoes Gangrene of left foot ([facility]) 10/04/2018 Groin hematoma 2013 RT Femoral groin Hematoma H/O myocardial perfusion scan 07/09/2019 LVEF 56% Myocardial perfusion imaging shows a defect in Apical wall Herpes zoster 09/04/2011 History of being hospitalized 12/06/2020 Strep Pneumonia, Resp. Failure - [facility] History of being hospitalized [place] - [facility] 07/15/2021-07/16/2021 History of coronary angiogram [...] incomplete bowel prep Diverticulosis Dr. Rowe at [facility] COLONOSCOPY W/ POLYPECTOMY 2011 CORONARY ARTERY [...] HISTORY 04/25/2022 Diagnostic LE catheterization Dr. Hahn [place] MEDICATION MANAGEMENT 11/2020 Multi resistant Strep Pneumonia, [...] patient. 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CMS/[facility]) The patient is seeing a medical claims assistant for this condition, treatment is deferred to [...] for Appointment As Scheduled. documented in this encounterMissouri Baptist Hospital-[id number] History of Present illness Narrative* LEONARDA Villavicencio [...] % ointment ergocalciferol (Vitamin D-2) 1.25 MG (93926 UT) capsule Take 50,000 Units by mouth [...] fracture, left 2009 CAD (coronary artery disease) ([facility]) 2013 Carotid artery disease ([facility]) Cataract 2014 Cellulitis 01/19/2022 [facility] Cellulitis LLE Colon polyps 2011 Groin hematoma 2013 RT Femoral groin Hematoma H/O myocardial perfusion scan 07/09/2019 LVEF 56% Myocardial perfusion imaging shows a defect in Apical wall History of being hospitalized 12/06/2020 Strep Pneumonia, Resp. Failure - [facility] History of being hospitalized [place] - [facility] 07/15/2021-07/16/2021 History of coronary angiogram [...] incomplete bowel prep Diverticulosis Dr. Rowe at [facility] COLONOSCOPY W/ POLYPECTOMY 2011 CORONARY ARTERY [...] HISTORY 04/25/2022 Diagnostic LE catheterization Dr. Hahn [place] MEDICATION MANAGEMENT 11/2020 Multi resistant Strep Pneumonia, [...] Do you have a medical power of workers compensation defense attorney?: Yes Objective : BP 132/82 Pulse 70 [...] exertion The patient is seeing a medical claims assistant for this condition, treatment is deferred to that specialist. Correspondence from that specialist and any available testing were reviewed during today's visit. 12. Orthopnea The patient is seeing a medical claims assistant for this condition, treatment is deferred to [...] aortic aneurysm (AAA) without rupture, unspecified part ([facility]/HCC) The patient is seeing a medical claims assistant for this condition, treatment is deferred to that specialist. Correspondence from that specialist and any available testing were reviewed during today's visit. 16. Aortic valve insufficiency, etiology of cardiac valve disease unspecified The patient is seeing a medical claims assistant for this condition, treatment is deferred to that specialist. Correspondence from that specialist and any available testing were reviewed during today's visit. 17. Atherosclerosis of eyak coronary artery of eyak heart without angina pectoris ([facility]/HCC) The patient is seeing a medical claims assistant for this condition, treatment is deferred to that specialist. Correspondence from that specialist and any available testing were reviewed during today's visit. 18. Benign essential hypertension ([facility]/HCC) Patient's blood pressure is currently well controlled. Continue with current medications and I willcontinue to monitor. 19. Stenosis of right carotid artery The patient is seeing a medical claims assistant for this condition, treatment is deferred to that specialist. Correspondence from that specialist and any available testing were reviewed during today's visit. 20. Chronic heart failure with preserved ejection fraction (CMS/HCC) The patient is seeing a medical claims assistant for this condition, treatment is deferred to that specialist. Correspondence from that specialist and any available testing were reviewed during today's visit. 21. Chronic ischemic heart disease (CMS/HCC) The patient is seeing a medical claims assistant for this condition, treatment is deferred to that specialist. Correspondence from that specialist and any available testing were reviewed during today's visit. 22. Mitral valve insufficiency, unspecified etiology The patient is seeing a medical claims assistant for this condition, treatment is deferred to that specialist. Correspondence from that specialist and any available testing were reviewed during today's visit. 23. Paroxysmal atrial fibrillation ([facility]) The patient is seeing a medical claims assistant for this condition, treatment is deferred to that specialist. Correspondence from that specialist and any available testing were reviewed during today's visit. 24. Preinfarction syndrome (CMS/HCC) The patient is seeing a medical claims assistant for this condition, treatment is deferred to that specialist. Correspondence from that specialist and any available testing were reviewed during today's visit. 25. PVD (peripheral vascular disease) with claudication ([facility]) The patient is seeing a medical claims assistant for this condition, treatment is deferred to that specialist. Correspondence from that specialist and any available testing were reviewed during today's visit. 26. Thoracic aortic aneurysm without rupture, unspecified part ([facility]) The patient is seeing a medical claims assistant for this condition, treatment is deferred to [...] 29. Chronic kidney disease due to hypertension ([facility]/HCC) This is a chronic medical condition that is stable since last assessment. No changes in treatment are suggested at this time. 30. Impotence of organic origin This is a chronic medical condition that is stable since last assessment. No changes in treatment are suggested at this time. 31. Malignant neoplasm of prostate (CMS/HCC) The patient is seeing a medical claims assistant for this condition, treatment is deferred to that specialist. Correspondence from that specialist and any available testing were reviewed during today's visit. 32. Stage 3a chronic kidney disease (HCC) (CMS/HCC) This is a chronic medical condition [...] time. 35. Claudication of right lower extremity ([facility]/HCC) The patient is seeing a medical claims assistant for this condition, treatment is deferred to [...] suggested at this time. 41. Other thrombophilia ([facility]/HCC) This is a chronic medical condition that is stable since last assessment. No changes in treatment are suggested at this time. 42. Abnormal radiographic examination The patient is seeing a medical claims assistant for this condition, treatment is deferred to that specialist. Correspondence from that specialist and any available testing were reviewed during today's visit. 43. Disorder of lipid metabolism (CMS/HCC) The patient is seeing a medical claims assistant for this condition, treatment is deferred to that specialist. Correspondence from that specialist and any available testing were reviewed during today's visit. 44. Left sciatic nerve pain This is a chronic medical condition that is stable since last assessment. No changes in treatment are suggested at this time. 45. Mixed hyperlipidemia (CMS/HCC) The patient is seeing a medical claims assistant for this condition, treatment is deferred to [...] 100 g; Refill: 3 48. 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 Correspondence from that specialist and any available testing were reviewed during today's visit. 49. Pulmonary hypertension, unspecified (CMS/HCC) The patient is seeing a medical claims assistant for this condition, treatment is deferred to that specialist. Correspondence from that specialist and any available testing were reviewed during today's visit. Follow up in about 3 months (around 07/27/2024) for Medication Follow Up. Electronically signed by LEONARDA Villavicencio on April 26, 2024 documented in this encounterMissouri Baptist Hospital-[id number] NotePt is here for a six month follow up. Pt has hyperlipidemia, hypertension, PAD. Pt denies sob, chest pain, palpitations Review of Systems Cardiovascular: Positive for claudication. Respiratory: Positive for wheezing. Hematologic/Lymphatic: Bruises/bleeds easily. Musculoskeletal: Positive for arthritis, back pain, joint pain, myalgias and neck pain. All other systems reviewed and are negative.[facility] 04-24-2024 NoteUT Cardiology - [facility] Powell is a 84 y.o. year old male patient being seen for 6 mo follow up CAD, PAD, AAA, HTN, and HLD. Had lipid panel Feb, 2024. He is now seeing vascular surgery in [place], Dr. Beaver. Patient Active Problem List Diagnosis Abdominal pain Chest pain Aortic valve regurgitation Mitral valve regurgitation Avascular necrosis of bone of hip (CMS/HCC) Community acquired pneumonia of left lower lobe of lung Contusion Hematoma of arm, left, initial encounter Coronary artery disease involving coronary bypass graft of eyak heart without angina pectoris Coronary artery disease involving eyak coronary artery of eyak heart without angina pectoris Coronary atherosclerosis Critical [...] instent restenosis. He then underwent CABG at [facility] in 2017 (CHAVEZ to diagonal, SVG to first OM, SVG to PDA), PAD s/p left femoral to Peroneal bypass 09/07/18 and s/p left midfoot amputation (2019) on Aspirin and Xarelto, Hypertension, HFpEF, COPD, [...] stress ECHO that could be done at [facility]. He has not had this done yet [...] (BP Location: Right arm (more content not included)...[facility]04-30-2024 Hospital Discharge instructions Patient Education 12/26/2023 13:31:34 [...] greater thelikelihood that the cancer will spread. Aleksandr 6 or lower: This indicates that [...] stress of having cancer. General instructions Take lzkc-zvj-etwxhlj and prescription medicines only as told by your health care provider. If you have to go to the hospital, notify your cancer specialist (oncologist). Keep all follow-up visits. This is important. Where to find more information [place] [employer]: www.cancer.org [place] [employer]: www.cancer.net National Cancer [place]: www.cancer.gov Contact a health care provider if: [...] provider. Document Revised: 11/10/2021 Document Reviewed: 11/10/2021 [employer] Patient Education 2022 [employer]. Follow Up Care 12/20/2022 14:56:06 With:JAY CARRANZA, BRENNA Bazan, URL Address: [facility] [address] Business (1) When: only if needed [facility] 02-06-2024 Evaluation note* Encounter Date Diagnosis Assessment [...] understands and is agreement with that plan [employer] Other 12-14-2023 History of Present illness Narrative* Dahiana Coelho - 08/10/2023 11:40 AM EST Ortho Nurse - Established Patient Intake Room#: 4 Date: 08/10/2023 10:53 AM Patient: Tristin Powell . MR#: [id number] : 1940 Age: 83 y.o. 2yr R [...] Allergies: He has No Known Allergies. * Scar Ortega APRN-KAMARI - 08/10/2023 11:40 AM EST HPI: Patient [...] Date: 08/10/2023 10:53 AM Patient: Tristin Powell . MR#: [id number] : 1940 Age: 83 y.o. 2yr R [...] N/A; Surgeon: Isaias Vogt MD; Location: [facility] CARD[facility]AC CATH/EP LAB ATHERECTOMY PERIPHERAL N/A 08/09/2018 Laterality: N/A; Surgeon: Isaias Vogt MD; Location: [facility] CARDIAC CATH/EP LAB CORONARY STENT PLACEMENT [...] has No Known Allergies. documented in this [facility]12-13-2023 History of Present illness Narrative* Mohsen Sarabia [...] Feet WWP Dopp peroneal and PT bilaterally YAMILE R 0.39 / L 0.89 No flow limiting stenosis of the L bypass graft A/P: I offered to refer him to a pain clinic who might be able to better help with his neuropathic symptoms. He is not interested at this time. F/u in one year with repeat testing. documented in this [id number] History of Present illness Narrative* Katie Anna [...] Duplex and had previous study done at [facility] in Apr [address] Maxim Beaver. This Nurse will obtain records and submit to Dr. Sarabia for review. documented in this [id number] Evaluation note* Encounter Date Diagnosis Assessment Notes [...] with speech that he should seek attention. [employer] Other 09-26-2023 Evaluation note* Encounter Date Diagnosis [...] to go over the results with him. [employer] Other 09-26-2023 Evaluation note* Encounter Date Diagnosis Assessment Notes Treatment Notes Treatment Clinical Notes Apr, Peripheral vascular disease, unspecified (ICD-10 - I73.9) Apr, Other specified postprocedural states (ICD-10 - Z98.890) Apr, Left carotid bruit (ICD-10 - R09.89) [employer] Other 04-25-2023 Hospital Discharge instructions Patient Education [...] Follow these instructions at home: Medicines Take jpwd-fgo-wnjfsoq and prescription medicines only as told by [...] provider. Document Revised: 11/10/2021 Document Reviewed: 11/10/2021 [employer] Patient Education 2022 [employer]. Follow Up Care 11/21/2022 15:38:53 With:BRENNA MOSQUERA PA-C, URL Address: When:1 year [facility] 03-20-2023 Evaluation note* Encounter Date Diagnosis Assessment [...] meantime with any worsening symptoms or concerns. [employer] Other 03-14-2023 History of Present illness Narrative* Camila Bland, NEWS CONTENT SPECIALIST - 11/08/2022 12:08 PM EDT Physical Therapy [...] postural re-education, tandem stance, single leg stance (IMTIAZ) Skilled Intervention Provided: verbal cues, demonstration, patient education For: balance recovery, fall prevention, initiation of tasks Resulting in: improved functional independence, increased self-management of symptoms and impairments Bed Mobility Rolling: Modified independent, Head of bed elevated Supine to Sit: Supervision, Head of bed elevated Director Inbound Sales: bed positioning mechanics, bedrails Skilled Intervention Provided: verbal cues, patient education, monitoring patient response with activity For: logroll technique, proper body mechanics, self-monitoring during activity Resulting in: improved functional independence Transfers Sit to Stand: Stand by assist Stand Pivot Transfers: Stand by assist Director Inbound Sales: BUE Skilled Intervention Provided: verbal cues, neuromuscular [...] recently Prior Level of Function Level of [place] - Transfers/Ambulation/Mobility: Independent with household ambulation, Independent with community ambulation Level of [place] - ADLs: Independent Level of [place] - Homemaking: Independent Driving: Patient drives For [...] Dawn MD - 11/08/2022 6:57 AM EDT [facility]/08/[facility] Tristin Powell 1940 [id number] Assessment/Plan: Tristin Powell is an 82 year old male with a history of Prostate Cancer, CAD, PAD (left foot amputation 2018), Hypertension, HFpEF who presented to [facility] 11/03/2022 with persistent pneumonia despite #2 rounds [...] to rubbing effect. Recommended to go to [facility] for adjustment to prevent valgus deformity in the heel from getting worse; arch support on the right. Follow up with Dr. Dashawn Orosco DPM (closer to home). CAD: history of CABG x3 (2016). On ASA, Betablocker, statin. Endorsed left sided [...] labs, diagnostics, vitals including pulse ox, and warehouse consultant/other provider recommendations. VSS. Troponin with negative [...] Oral Daily ipratropium-albuteroL 3 mL Inhalation Q6H [facility] metoprolol tartrate 50 mg Oral BID pantoprazole 40 mg Oral BID polyethylene glycol 17 g Oral Daily rivaroxaban 2.5 mg Oral BID sodium chloride 1 spray Each Nare BID sodium chloride (PF) 5 mL Intravenous Q8H [facility] Labs, Imaging and Studies reviewed: Results from [...] Standing Balance - Static: Stand by assist Director Inbound Sales - Standing Static: (none) Standing Balance - Dynamic: Stand by assist, Contact guard assist Director Inbound Sales - Standing Dynamic: (none) Skilled Intervention Provided: verbal cues, patient education For: self-monitoring during activity, safe use of AD and/or equipment Resulting in: improved functional independence Bed Mobility Supine to Sit: (N/A Pt sitting edge of bed upon arrival) Sit to Supine: (N/A Pt sitting edge of bed at end of session) Transfers Sit to Stand: Stand by assist Director Inbound Sales: (none) Skilled Intervention Provided: verbal cues For: [...] recently Prior Level of Function Level of [place] - Transfers/Ambulation/Mobility: Independent with household ambulation, Independent with community ambulation Level of [place] - ADLs: Independent Level of [place] - Homemaking: Independent Driving: Patient drives For [...] Barboza MD - 11/07/2022 7:39 AM EDT [facility] 11/07/2022 Tristin Powell 1940 [id number] Assessment/Plan: Tristin Powell is an 82 year old male with a history of Prostate Cancer, CAD, PAD (left foot amputation 2018), Hypertension, HFpEF who presented to [facility] 11/03/2022 with persistent pneumonia despite #2 rounds [...] to rubbing effect. Recommended to go to [facility] for adjustment to prevent valgus deformity [...] 6' 1 Wt 113.4 kg (250 lb) ThT911% BMI 32.98 kg/m General: NAD Eyes: EOMI [...] Barboza MD - 11/06/2022 10:11 AM EDT [facility] Inpatient Progress Note 11/06/2022 Tristni Powell 1940 [id number] Assessment/Plan: Tristin Powell is an 82 year old male with a history of Prostate Cancer, CAD, PAD (left foot amputation 2018), Hypertension, HFpEF who presented to [facility] 11/03/2022 with persistent pneumonia despite #2 rounds [...] Units 11/05/22 0558 11/04/22 0626 11/03/22 1353 WBC K/mcL 6.68 6.54 8.06 HGB [...] Standing Balance - Static: Contact guard assist Director Inbound Sales - Standing Static: other (comment) (none) Standing Balance - Dynamic: Contact guard assist Director Inbound Sales - Standing Dynamic: (none) Loss of Balance- [...] assist Stand Pivot Transfers: Contact guard assist Director Inbound Sales: other (comment) (none) Skilled Intervention Provided: verbal [...] recently Prior Level of Function Level of [place] - Transfers/Ambulation/Mobility: Independent with household ambulation, Independent with community ambulation Level of [place] - ADLs: Independent Level of [place] - Homemaking: Independent Driving: Patient drives For [...] Barboza MD - 11/05/2022 9:53 AM EST [facility] 11/05/2022 Tristin Powell 1940 [id number] Assessment/Plan: Tristin Powell is an 82 year old male with a history of Prostate Cancer, CAD, PAD (left foot amputation 2018), Hypertension, HFpEF who presented to [facility] 11/03/2022 with persistent pneumonia despite #2 rounds [...] left foot area. Nasal irritation. ConsultedPodiatry. Prescribed Anatone Saline nasal spray. Reviewed chart. Physical Exam: [...] Units 11/05/22 0558 11/04/22 0626 11/03/22 1353 WBC K/mcL 6.68 6.54 8.06 HGB [...] loss Wound documentation : 11/04/22 1500 Wound 03/10/23 Buttock Left Date First Assessed/Time First Assessed: 11/04/22222 Present on Hospital Admission: Yes Primary Wound Type: (c) Location: Buttock Wound Location Orientation: Left Dressing Status Open to air Wound Length (cm) 0.3 cm Wound Width (cm) 0.3 cm Wound Surface Area (cm^2) 0.09 cm^2 Area % Change 0 Drainage Amount None Odor None Wound Bed Characteristics Scab Edna-wound Assessment Painful;[place] Treatments Skin barrier cream/paste Cleansed Soap and [...] recently Prior Level of Function Level of [place] - Transfers/Ambulation/Mobility: Independent with household ambulation, Independent with community ambulation Level of [place] - ADLs: Independent Level of [place] - Homemaking: Independent Driving: Patient drives Past Medical History: Diagnosis Date Arthritis Avascular necrosis of bone of hip (HCC) Claudication (HCC) Coronary artery disease Herpes zoster Hyperlipidemia Hypertension PAD (peripheral artery disease) ([facility]) 01/21/2022 Prostate cancer (HCC) Vascular disease Past Surgical History: Procedure Laterality Date 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/08/2018 Procedure: LEFT MIDFOOT AMPUTATION; Surgeon: Flynn Mann DPM; Location: [facility] OR; Service: Podiatry ANKLE SURGERY Left BYPASS PERONEAL FEMORAL Right 09/07/2018 Procedure: BYPASS PERONEAL FEMORAL, RIGHT SAPHENOUS VEIN HARVEST, COMPLETION ANGIOGRAM; Surgeon: Mohsen Sarabia MD; Location: [facility] NEURO OR; Service: Cardiovascular CARDIAC CATHETERIZATION Left 09/05/2018 Procedure: Angio Lower Extremity; Surgeon: Ben Hahn MD; Location: [facility] TELEVISION CABINET FINISHER; Service: Cardiovascular CARDIAC SURGERY 2017 triple bypass EGD N/A 10/10/2018 Procedure: ESOPHAGOGASTRODUODENOSCOPY; Surgeon: Ben Jensen MD; [place] [facility] [place]; Service: Gastroenterology EYE SURGERY Right 2015 [...] Barboza MD - 11/04/2022 10:58 AM EST [facility] Inpatient Progress Note 11/04/2022 Tristin Powell 1940 [id number] Assessment/Plan: Tristin Powell is an 82 year old male with a history of Prostate Cancer, CAD, PAD (left foot amputation 2018), Hypertension, HFpEF who presented to [facility] 11/03/2022 with persistent pneumonia despite #2 rounds [...] Peroneal bypass 09/07/18 and s/p left midfoot amputation(2019) with known diffuse PAD in both legs. [...] Tristin sitting up in bed.complains of cough. Tessalino Jacobs helps, so scheduled. Complains of pain left [...] PHOSPHORUS mg/dL 3.9* -- * El Owen [facility],PharmD - 11/03/2022 10:20 PM EST PHARMACOTHERAPY NOTE: [...] 1 Encounters: 11/03/22 113.4 kg (250 lb) [place] body weight: 79.9 kg (176 lb 2.4 [...] Component Value Units Date/Time Sputum Aerobic Culture [[id number]] Order Status: Sent Specimen: Sputum, Expectorated S. pneumoniae Urine Antigen [[id number]] Order Status: Sent Specimen: Urine, Random Legionella Antigen, Urine [[id number]] Order Status: Sent Specimen: Urine, Random MRSA DNA Amplified Probe [[id number]] Order Status: Sent Specimen: Swab from Nasal Blood Culture Aerobic/Anaerobic [[id number]] (Normal) Collected: 11/03/221352 Order Status: Completed Specimen: Blood, Peripheral Updated: 11/03/22 1559 Culture In Progress; No Growth to Date Blood Culture Aerobic/Anaerobic [[id number]] (Normal) Collected: 11/03/221351 Order Status: Completed Specimen: Blood, Peripheral Updated: 11/03/229 Culture In Progress; No Growth to Date Pharmacist: El Owen RPh,PharmD Contact Number: documented in this [id number] Hospital Discharge instructions * Discharge Instructions* Vickey [...] Care Everywhere. * Heart Failure: Avoiding Triggers (American) * Heart Failure: Limiting Sodium (American) * Heart Failure: Restricting Fluids: General Info (American) * Low Sodium Diet (American) documented in this [id number] Hospital course Narrative* Vickey Dawn MD - 11/08/2022 11:18 AM EDT Images from the original note were not included. [facility] DISCHARGE SUMMARY Tristin Powell Account: [id number] Admitted: 11/03/2022 Discharge Date/Time: 11/08/22 11:30 AM [...] amputation 2018), Hypertension, HFpEF who presented to [facility] 11/03/2022 with persistent pneumonia despite #2 rounds [...] to rubbing effect. Recommended to go to [facility] for adjustment to prevent valgus deformity [...] Trelegy Ellipta 100-62.5-25 mcg Dsdv Generic drug: qcvowpzanmq-wimydzsfm-darctzgl zolpidem 10 mg tablet Commonly known as: [...] These medications were sent to [facility] [id number] [facility] [address] [facility] [address] [address] [address] [id number] furosemide 20 MG tablet levoFLOXacin 750 MG tablet Physician(s) Family: Flash Lovelace MD, , Address: [address] [place], [place] [id number] Follow Up: Dashawn Orosco DPM [address] [place] [address] Dr [address] [phone] Schedule an appointment as soon as possible for a visit in 1 week(s) [facility] [address] [address] Follow up Thank you for allowing us to participate in your care. Schedule an appt with your established shoe clerk in [place]. Call us with any questions. Wagner Moon MD [address] [place] [address] Dr [address] [phone] Call in 4 week(s) Call in 4-6 weeks after follow up CT chest Additional Information: Patient seen and examined day of discharge. For more information regarding patient's care, including complete radiology reports, please contact [facility] at Patient instructions, including activity, were given to the patient/family at discharge. Please seethe After Visit Summary in the medical record for details. Time spent on discharge: > 30 minutes Completed by: Vcikey Dawn on 11/08/22, 11:30 AM documented in this [id number] Consult note* Monica Vázquez RN - 11/07/2022 [...] of early recognition and report to their shoe clerk,PCP or health care provider. Daily weight monitoring [...] fluid and lifestyle changes. MATERIALS, RESOURCES GIVEN: [facility] Guide to Living with Heart Failure book, 5 day low sodium+ Diabetic sample menu. Clinical references attached to AVS. [id number] Consult note* Monica Vázquez RN - 11/07/2022 [...] of early recognition and report to their shoe clerk,PCP or health care provider. Daily weight monitoring [...] fluid and lifestyle changes. MATERIALS, RESOURCES GIVEN: [facility] Guide to Living with Heart Failure book, 5 day low sodium+ Diabetic sample menu. Clinical references attached to AVS. * Kory Mei CNP - 11/07/2022 10:11 AM EDTAssociated Order(s): IP CONSULT TO CARDIOLOGY General Cardiology Inpatient Consult Heart & Vascular [facility] 11/07/2022 Kory Mei CNP [facility] RN [phone] Patient: Tristin Powell Date of : 1940 (82 y.o.) Referring Provider: Refer to consult order in electronic medical record PCP: Flash Lovelace MD Central Service Tech: Follows with cardiology at [facility] Assessment/Plan: Atypical chest pain Elevated troponins Admit [...] consulted. -Follow up with PCP or personal shoe clerk in 1-2 weeks Coronary artery disease History of multiple stents and subsequent coronary artery bypass graft x 3 (CHAVEZ to Diag, SVG to OM1, SVG to PDA) at [facility] 10/2016 Left heart catheterization prior to coronary [...] as outpatient for pneumonia and seen at [facility] ED on 10/30 for fever, persistent frequent cough with associated chest pain, n/v, decrease appetite, weakness, and mild dyspnea. Per patient was told by PCP that there was also Fluid on his lungs . Normal BNP at [facility] ED. Discharged on ATB. Since admit he [...] bypass graft. Not following routinely with his shoe clerk. Imaging: I independently reviewed the EKG and agree with the interpretation(s) with the following comments. SR, isolated flat T wave lead III; ECG today with chest pain: Sr with occasional PVC, TWA lead III,aVF EKG 12-lead Final Result by Interface, Lab Results In [facility] (11/03/2022 1658) Echocardiogram complete w contrast [...] zoster Hyperlipidemia Hypertension PAD (peripheral artery disease) ([facility]) 01/21/2022 Prostate cancer ([facility]) Vascular disease Past Surgical History: Procedure Laterality Date 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/08/2018 Procedure: LEFT MIDFOOT AMPUTATION; Surgeon: Flynn Mann DPM; Location: [facility] OR; Service: Podiatry ANKLE SURGERY Left BYPASS PERONEAL FEMORAL Right 09/07/2018 Procedure: BYPASS PERONEAL FEMORAL, RIGHT SAPHENOUS VEIN HARVEST, COMPLETION ANGIOGRAM; Surgeon: Mohsen Sarabia MD; Location: [facility] NEURO OR; Service: Cardiovascular CARDIAC CATHETERIZATION Left 09/05/2018 Procedure: Angio Lower Extremity; Surgeon: Ben Hahn MD; Location: [facility] TELEVISION CABINET FINISHER; Service: Cardiovascular CARDIAC SURGERY 2017 triple bypass EGD N/A 10/10/2018 Procedure: ESOPHAGOGASTRODUODENOSCOPY; Surgeon: Ben Jensen MD; [place] [facility] [place]; Service: Gastroenterology EYE SURGERY Right 2015 [...] Q12H Duke Claros MD Stopped at 11/06/22 366 [START ON 11/08/2022] furosemide (LASIX) tablet 20 mg 20 mg Oral Daily Kory Mei CNP ipratropium-albuteroL (DUO-NEB) 0.5-2.5 mg/3 ml nebulizer solution 3 mL 3 mL Inhalation Q6H SADIA Duke Claros MD 3 mL at 11/07/22 0828 ipratropium-albuteroL (DUO-NEB) 0.5-2.5 mg/3 ml nebulizer solution 3 mL 3 mL Inhalation Q4H PRN Duke Claros MD 3 mL at 11/04/229 metoprolol tartrate (LOPRESSOR) tablet 50 mg 50 mg Oral BID Duke Claros MD 50 mg at 0 naloxone (NARCAN) injection 0.1 mg 0.1 mg Intravenous PRN Jass Barboza MD And naloxone (NARCAN) injection 0.4 mg 0.4 mg Intravenous PRN Jass Barboza MD ondansetron (ZOFRAN-ODT) disintegrating tablet 4 mg 4 mg Oral Q6H PRN Duke Claros MD 4 mg at11/07/22 0712 Or ondansetron (ZOFRAN) injection 4 mg 4 mg Intravenous Q6H PRN Duke Claros MD 4 mg at 3 oxyCODONE-acetaminophen (PERCOCET) 5-325 mg per tablet 1 [...] 0.9% (NS) 0-150 mL/hr Intravenous PRN Aurelia Tillman, KAMARI Stopped at 11/05/22 2324 sodium chloride (PF) [...] cardiac issues or concerns. Jaziel Jeffries MD, [facility] Inpatient Rounding [phone] Office [phone] * Aaron Fenton DPM - 11/07/2022 7:07 AM EDTAssociated Order(s): IP CONSULT TO PODIATRY Critical Limb Care Consult Note Tristin Powell AGE: 82 y.o. GENDER: male : 1940 EPISODE DATE: 11/03/2022 Assessment/Plan: Tristin Powell is an 82 year old male with a history of Prostate Cancer, CAD, PAD (left foot amputation 2018), Hypertension, HFpEF who presented to [facility] 11/03/2022 with persistent pneumonia despite #2 rounds [...] ankle. He will need to go to [facility] an adjustment to help prevent [...] MIDFOOT AMPUTATION; Surgeon: Flynn Mann DPM; Location: [facility] OR; Service: Podiatry ANKLE SURGERY Left BYPASS PERONEAL FEMORAL Right 09/07/2018 Procedure: BYPASS PERONEAL FEMORAL, RIGHT SAPHENOUS VEIN HARVEST, COMPLETION ANGIOGRAM; Surgeon: Mohsen Sarabia MD; Location: [facility] OR; Service: Cardiovascular CARDIAC CATHETERIZATION Left 09/05/2018 Procedure: Angio Lower Extremity; Surgeon: Ben Hahn MD; Location: [facility] TELEVISION CABINET FINISHER; Service: Cardiovascular CARDIAC SURGERY 2017 triple bypass EGD N/A 10/10/2018 Procedure: ESOPHAGOGASTRODUODENOSCOPY; Surgeon: Ben Jensen MD; [place] [facility] [place]; Service: Gastroenterology EYE SURGERY Right 2015 [...] total) by mouth 2 (two) timesa day / tab . ergocalciferol (ERGOCALCIFEROL) 1,250 mcg (50,000 unit) capsule Take 1 (one) capsule (50,000 Units total) by mouth once a week . fluticasone (FLONASE) 50 mcg/actuation nasal spray 2 (two) sprays by Each Nare route daily . 16 g 12 aiuysitboed-nauzkpxyb-mqnvuqae (Trelegy Ellipta) 100-62.5-25 mcg DsDv 1 puff [...] 6' 1 Wt 113.4 kg (250 lb) CqH699% BMI 32.98 kg/m PHYSICAL EXAM General: The [...] intolerance. 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 [...] recently Prior Level of Function Level of [place] - Transfers/Ambulation/Mobility: Independent with household ambulation, Independent with community ambulation Level of [place] - ADLs: Independent Level of [place] - Homemaking: Independent Driving: Patient drives Past Medical History: Diagnosis Date Arthritis Avascular necrosis of bone of hip ([facility]) Claudication (HCC) Coronary artery disease Herpes zoster Hyperlipidemia Hypertension PAD (peripheral artery disease) ([facility]) 01/21/2022 Prostate cancer ([facility]) Vascular disease Past Surgical History: Procedure Laterality Date 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/08/2018 Procedure: LEFT MIDFOOT AMPUTATION; Surgeon: Flynn Mann DPM; Location: [facility] OR; Service: Podiatry ANKLE SURGERY Left BYPASS PERONEAL FEMORAL Right 09/07/2018 Procedure: BYPASS PERONEAL FEMORAL, RIGHT SAPHENOUS VEIN HARVEST, COMPLETION ANGIOGRAM; Surgeon: Mohsen Sarabia MD; Location: [facility]; Service: Cardiovascular CARDIAC CATHETERIZATION Left 09/05/2018 Procedure: Angio Lower Extremity; Surgeon: Ben Hahn MD; Location: [facility] TELEVISION CABINET FINISHER; Service: Cardiovascular CARDIAC SURGERY 2017 triple bypass EGD N/A 10/10/2018 Procedure: ESOPHAGOGASTRODUODENOSCOPY; Surgeon: Ben Jensen MD; [place] [facility] [place]; Service: Gastroenterology EYE SURGERY Right 2015 [...] Calixto CNP 3.10.23. See note for details. * Gustavo Macdonald CNP - 11/04/2022 6:50 AM ESTAssociated Order(s): IP CONSULT TO ORTHOPEDIC SURGERY CONSULT NOTE Patient Name: Tristin Powell Admit Date: [id number] MR #: [id number] : 1940 Physicians: Flash Lovelace MD (Family); No ref. provider found (Referring) Dr. Alejo Messina (orthopedic surgery) Assessment and Plan: Other [...] CAD, HLD, HTN, prostate cancer presenting to [facility] 11/03 with CAP. Patient also reports left [...] MIDFOOT AMPUTATION; Surgeon: Flynn Mann DPM; Location: [facility] OR; Service: Podiatry ANKLE SURGERY Left BYPASS PERONEAL FEMORAL Right 09/07/2018 Procedure: BYPASS PERONEAL FEMORAL, RIGHT SAPHENOUS VEIN HARVEST, COMPLETION ANGIOGRAM; Surgeon: Mohsen Sarabia MD; Location: [facility] NEURO OR; Service: Cardiovascular CARDIAC CATHETERIZATION Left 09/05/2018 Procedure: Angio Lower Extremity; Surgeon: Ben Hahn MD; Location: [facility] 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 terxlxynfly-kmhesdnhq-trkgucyn (Trelegy Ellipta) 100-62.5-25 mcg DsDv 1 puff [...] Compartments soft and compressible Associated attestation - Alejo Messina MD - 11/04/2022 1:28 PM EST [...] his primary care physician. documented in this [id number] Consult note* Kory Mei CNP - 11/07/2022 10:11 AM EDTAssociated Order(s): IP CONSULT TO CARDIOLOGY General Cardiology Inpatient Consult Heart & Vascular [facility] 11/07/2022 Kory Mei CNP [facility] RN [phone] Patient: Tristin Powell Date of : 1940 (82 y.o.) Referring Provider: Refer to consult order in electronic medical record PCP: Flash Lovelace MD Central Service Tech: Follows with cardiology at [facility] Assessment/Plan: Atypical chest pain Elevated troponins Admit [...] consulted. -Follow up with PCP or personal shoe clerk in 1-2 weeks Coronary artery disease History of multiple stents and subsequent coronary artery bypass graft x 3 (CHAVEZ to Diag, SVG to OM1, SVG to PDA) at [facility] in [place] 10/2016 Left heart catheterization prior to coronary [...] as outpatient for pneumonia and seen at [facility] ED on 10/30 for fever, persistent frequent cough with associated chest pain, n/v, decrease appetite, weakness, and mild dyspnea. Per patient was told by PCP that there was also Fluid on his lungs . Normal BNP at [facility] ED. Discharged on ATB. Since admit he [...] bypass graft. Not following routinely with his shoe clerk. Imaging: I independently reviewed the EKG and agree with the interpretation(s) with the following comments. SR, isolated flat T wave lead III; ECG today with chest pain: Sr with occasional PVC, TWA lead III,aVF EKG 12-lead Final Result by Interface, [facility] (11/03/2022 1658) Echocardiogram complete w contrast Final [...] zoster Hyperlipidemia Hypertension PAD (peripheral artery disease) ([facility]) 01/21/2022 Prostate cancer ([facility]) Vascular disease Past Surgical History: Procedure Laterality Date 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/08/2018 Procedure: LEFT MIDFOOT AMPUTATION; Surgeon: Flynn Mann DPM; Location: [facility] OR; Service: Podiatry ANKLE SURGERY Left BYPASS PERONEAL FEMORAL Right 09/07/2018 Procedure: BYPASS PERONEAL FEMORAL, RIGHT SAPHENOUS VEIN HARVEST, COMPLETION ANGIOGRAM; Surgeon: Mohsen Sarabia MD; Location: [facility] NEURO OR; Service: Cardiovascular CARDIAC CATHETERIZATION Left 09/05/2018 Procedure: Angio Lower Extremity; Surgeon: Ben Hahn MD; Location: [facility] TELEVISION CABINET FINISHER; Service: Cardiovascular CARDIAC SURGERY 2017 triple bypass EGD N/A 10/10/2018 Procedure: ESOPHAGOGASTRODUODENOSCOPY; Surgeon: Ben Jensen MD; [place] [facility] [place]; Service: Gastroenterology EYE SURGERY Right 2015 [...] PRN Duke Claros MD 3 mL at 11/04/22 2129 metoprolol tartrate (LOPRESSOR) tablet 50 mg 50 mg Oral BID Duke Claros MD 50 mg at 0 naloxone (NARCAN) injection 0.1 mg 0.1 mg [...] cardiac issues or concerns. Jaziel Jeffries MD, [facility] Heart and Vascular Physicians Inpatient Rounding [phone] Office [phone] [facility] Work Phone: [phone]) 791-610803-13-2023 Consult note* Aaron Fenton DPM - 11/07/2022 7:07 AM EDTAssociated Order(s): IP CONSULT TO PODIATRY Critical Limb Care Consult Note Tristin Powell AGE: 82 y.o. GENDER: male : 1940 EPISODE DATE: 11/03/2022 Assessment/Plan: Tristin Powell is an 82 year old male with a history of Prostate Cancer, CAD, PAD (left foot amputation 2018), Hypertension, HFpEF who presented to [facility] 11/03/2022 with persistent pneumonia despite #2 rounds [...] ankle. He will need [facility] go [facility] an adjustment to help prevent [...] Shortness of Breath HISTORY of PRESENT ILLNESS EVELIN Powell is a 82 y.o. male who is seen today for evaluation of right and left foot pain. Pain Timing/Severity: constant, during ambulation and with shoe/brace use. Quality of pain: aching and sharp Severity of pain: 5 / 10 Modifying Factors: PAD Associated Signs/Symptoms: none PAST MEDICAL HISTORY Past Medical History: Diagnosis Date Arthritis Avascular necrosis of bone of hip ([facility]) Claudication ([facility]) Coronary artery disease Herpes zoster Hyperlipidemia Hypertension PAD (peripheral artery disease) ([facility]) 01/21/2022 Prostate cancer ([facility]) Vascular disease PAST SURGICAL HISTORY Past Surgical History: Procedure Laterality Date 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/08/2018 Procedure: LEFT MIDFOOT AMPUTATION; Surgeon: Flynn Mann DPM; Location: [facility] OR; Service: Podiatry ANKLE SURGERY Left BYPASS PERONEAL FEMORAL Right 09/07/2018 Procedure: BYPASS PERONEAL FEMORAL, RIGHT SAPHENOUS VEIN HARVEST, COMPLETION ANGIOGRAM; Surgeon: Mohsen Sarabia MD; Location: [facility] NEURO OR; Service: Cardiovascular CARDIAC CATHETERIZATION Left 09/05/2018 Procedure: Angio Lower Extremity; Surgeon: Ben Hahn MD; Location: [facility] TELEVISION 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 ergocalciferol (ERGOCALCIFEROL) 1,250 mcg (50,000 unit) capsule Take 1 (one) capsule (50,000 Units total) by mouth once a week . fluticasone (FLONASE) 50 mcg/actuation nasal spray 2 (two) sprays by Each Nare route daily . 16 g 12 wofeanudrqy-smdxzbqjn-icrwapkg (Trelegy Ellipta) 100-62.5-25 mcg DsDv 1 puff [...] 6' 1 Wt 113.4 kg (250 lb) AaX527% BMI 32.98 kg/m PHYSICAL EXAM General: The [...] 11/07/2022 at 7:08 AM ote [facility] Work Phone: 1(467) 373-883803-11-2023 Note* Plan of Care - Alma Delia [...] Completed Goal: Knowledge of Enviroment Outcome: Completed [id number] Miscellaneous Notes* Plan of Care - Alma [...] in both lower extremities to approximately the gax-lu-wmbvw calf area bilaterally, but there are no signs of infection. There is no redness. documented in this [id number] Consult note* Lyn Cerrato, OT - 11/04/2022 [...] intolerance. 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 [...] recently Prior Level of Function Level of [place] - Transfers/Ambulation/Mobility: Independent with household ambulation, Independent with community ambulation Level of [place] - ADLs: Independent Level of [place] - Homemaking: Independent Driving: Patient drives Past Medical History: Diagnosis Date Arthritis Avascular necrosis of bone of hip ([facility]) Claudication ([facility]) Coronary artery disease Herpes zoster Hyperlipidemia Hypertension PAD (peripheral artery disease) ([facility]) 01/21/2022 Prostate cancer ([facility]) Vascular disease Past Surgical History: Procedure Laterality Date 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/08/2018 Procedure: LEFT MIDFOOT AMPUTATION; Surgeon: Flynn Mann DPM; Location: [facility] OR; Service: Podiatry ANKLE SURGERY Left BYPASS PERONEAL FEMORAL Right 09/07/2018 Procedure: BYPASS PERONEAL FEMORAL, RIGHT SAPHENOUS VEIN HARVEST, COMPLETION ANGIOGRAM; Surgeon: Mohsen Sarabia MD; Location: [facility] NEURO OR; Service: Cardiovascular CARDIAC CATHETERIZATION Left 09/05/2018 Procedure: Angio Lower Extremity; Surgeon: Ben Hahn MD; Location: [facility] 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 [id number] Consult note* Neetu Thompson RN - 11/04/2022 11:08 AM EST Associated Order(s): IP CONSULT TO CARDIOLOGY - PERIPHERAL VASC DISEASE Information only. Cardiology consult completed by Aminah Calixto NEON SIGN MECHANIC 3.10.23. See note for details. [id number] Note* Quick Note - Rojelio Mackenzie DO [...] follow-up Rojelio Mackenzie, PGY-4 Orthopedic Surgery Resident [employer] Work Phone: [phone]) 585-559603-10-2023 Note* Quick Note - Catina Calixto CNP - 11/04/2022 8:06 AM EST Received consult for patient with chronic PAD s/p L fem-peroneal (GSV) bypass per Dr. Sarabia in 2019. He has no acute issues or lower extremity wounds and denies BLE claudication. No indication for additional inpatient work up/resting. Patient can follow up with Dr. Sarabia as an outpatient. [id number] Evaluation + Plan note* Assessment & Plan [...] 2022 was known to be reduced (0.5) [id number] Evaluation + Plan note* Assessment & Plan [...] Dr. Messina as needed if symptoms persist [id number] Consult note* Gustavo Macdonald CNP - 11/04/2022 6:50 AM EST Associated Order(s): IP CONSULT TO ORTHOPEDIC SURGERY CONSULT NOTE Patient Name: Tristin Powell Admit Date: [id number] MR #: [id number] : 1940 Physicians: Flash Lovelace MD (Family); No ref. provider found (Referring) Dr. Alejo Messina (orthopedic surgery) Assessment and Plan: Other [...] CAD, HLD, HTN, prostate cancer presenting to [facility] 11/03 with CAP. Patient also reports left [...] zoster Hyperlipidemia Hypertension PAD (peripheral artery disease) ([facility]) 01/21/2022 Prostate cancer (HCC) Vascular disease Past Surgical History: Procedure Laterality Date 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/08/2018 Procedure: LEFT MIDFOOT AMPUTATION; Surgeon: Flynn Mann DPM; Location: [facility] OR; Service: Podiatry ANKLE SURGERY Left BYPASS PERONEAL FEMORAL Right 09/07/2018 Procedure: BYPASS PERONEAL FEMORAL, RIGHT SAPHENOUS VEIN HARVEST, COMPLETION ANGIOGRAM; Surgeon: Mohsen Sarabia MD; Location: [facility] NEURO OR; Service: Cardiovascular CARDIAC CATHETERIZATION Left 09/05/2018 Procedure: Angio Lower Extremity; Surgeon: Ben Hahn MD; Location: [facility] 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 ydvewhibycb-pbmlnpkzv-vofvxjga (Trelegy Ellipta) 100-62.5-25 mcg DsDv 1 puff [...] Compartments soft and compressible Associated attestation - Alejo Messina MD - 11/04/2022 1:28 PM EST [...] should follow-up with his primary care physician. [id number] Note* Plan of Care - Deisi Gimenez RN - 11/04/2022 3:01 AM EST Problem: Actual or potential alteration in health Goal: Absence of healthcare acquired conditions Outcome: Partially Met Goal: Knowledge of Interdisciplinary Plan of Care Outcome: Partially Met Goal: Knowledge of Enviroment Outcome: Partially Met Problem: Pressure Ulcer - Risk of Goal: Absence of pressure ulcer Outcome: Partially Met [id number] History and physical note* Duke Claros MD - 11/03/2022 9:58 PM EST [facility] History and Physical Note 11/03/22 Tristin Powell 1940 [id number] Assessment/Plan: Tristin Powell is a 82 y.o. male with a history of Prostate Cancer, CAD, PAD (left foot amputation 2018) HTN, HFpEF who presented to [facility] 11/03/2022 with persistent pneumonia despite #2 rounds [...] amputation 2018) HTN, HFpEF who presented to [facility] 11/03/2022 with persistent pneumonia despite #2 rounds [...] zoster Hyperlipidemia Hypertension PAD (peripheral artery disease) ([facility]) 01/21/2022 Prostate cancer (HCC) Vascular disease Past Surgical History: Procedure Laterality Date 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/08/2018 Procedure: LEFT MIDFOOT AMPUTATION; Surgeon: Flynn Mann DPM; Location: [facility] OR; Service: Podiatry ANKLE SURGERY Left BYPASS PERONEAL FEMORAL Right 09/07/2018 Procedure: BYPASS PERONEAL FEMORAL, RIGHT SAPHENOUS VEIN HARVEST, COMPLETION ANGIOGRAM; Surgeon: Mohsen Sarabia MD; Location: [facility] NEURO OR; Service: Cardiovascular CARDIAC CATHETERIZATION Left 09/05/2018 Procedure: Angio Lower Extremity; Surgeon: Ben Hahn MD; Location: [facility] TELEVISION CABINET FINISHER; Service: Cardiovascular CARDIAC SURGERY 2017 triple bypass EGD N/A 10/10/2018 Procedure: ESOPHAGOGASTRODUODENOSCOPY; Surgeon: Ben Jensen MD; [place] [facility] [place]; Service: Gastroenterology EYE SURGERY Right 2015 [...] (two) times a day 08/29 tab . fluticasone (FLONASE) 50 mcg/actuation nasal [...] 64 GLUCOSE mg/dL 92 CALCIUM mg/dL 9.5 [id number] History and physical note* Duke Claros MD - 11/03/2022 9:58 PM EST [facility] History and Physical Note 11/03/22 Tristin Powell 1940 [id number] Assessment/Plan: Tristin Powell is a 82 y.o. male with a history of Prostate Cancer, CAD, PAD (left foot amputation 2018) HTN, HFpEF who presented to [facility] 11/03/2022 with persistent pneumonia despite #2 rounds [...] amputation 2018) HTN, HFpEF who presented to [facility] 11/03/2022 with persistent pneumonia despite #2 rounds [...] zoster Hyperlipidemia Hypertension PAD (peripheral artery disease) ([facility]) 01/21/2022 Prostate cancer (HCC) Vascular disease Past Surgical History: Procedure Laterality Date 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/08/2018 Procedure: LEFT MIDFOOT AMPUTATION; Surgeon: Flynn Mann DPM; Location: [facility] OR; Service: Podiatry ANKLE SURGERY Left BYPASS PERONEAL FEMORAL Right 09/07/2018 Procedure: BYPASS PERONEAL FEMORAL, RIGHT SAPHENOUS VEIN HARVEST, COMPLETION ANGIOGRAM; Surgeon: Mohsen Sarabia MD; Location: [facility] NEURO OR; Service: Cardiovascular CARDIAC CATHETERIZATION Left 09/05/2018 Procedure: Angio Lower Extremity; Surgeon: Ben Hahn MD; Location: [facility] TELEVISION CABINET FINISHER; Service: Cardiovascular CARDIAC SURGERY 2017 triple bypass EGD N/A 10/10/2018 Procedure: ESOPHAGOGASTRODUODENOSCOPY; Surgeon: Ben Jensen MD; [place] [facility] [place]; Service: Gastroenterology EYE SURGERY Right 2015 [...] 92 CALCIUM mg/dL 9.5 documented in this [id number] Emergency department Note* MIGUE Berumen - 11/03/2022 9:35 PM EST [facility] to write admission orders. [phone]. [id number] Emergency department Note* MIGUE Berumen - 11/03/2022 9:35 PM EST [facility] to write admission orders. [phone]. * Sharron Khan PA-C - 11/03/2022 5:46 [...] so he went to the ED in [facility]. He had a repeat chest x-ray [...] with COPD and PAD who presents to theemergency department with shortness of breath and cough [...] zoster Hyperlipidemia Hypertension PAD (peripheral artery disease) ([facility]) 01/21/2022 Prostate cancer (HCC) Vascular disease Labs [...] METABOLIC PANEL - Normal Narrative: [facility] Laboratory Services has implemented the eGFR calculation approach that does not have a coefficient for race that conforms to the NKF-ASN Task Force Recommendations. CBC AND DIFFERENTIAL Narrative: The following orders were created for panel order CBC w/ Diff. Procedure Abnormality Status --------- ------ CBC Auto Differential[[id number]] Abnormal Final result Please view results for [...] by mouth 2 (two) times a day 1/ tab . fluticasone (FLONASE) 50 mcg/actuation nasal [...] this documentation, there is a possibility of xcmgp-r-objc errors inherent to this technology that may be missed during proofreading.) Sharron Khan PA-C 11/03/22 4477 * Aimee Owens RN - 11/03/2022 12:43 PM EST Pt arrives to the ED with multiple complaints. Per daughter patient has fluid on his lungs and there is concern for pneumonia. Daughter also states that there is concern for infection in his foot amputation from 2019. documented in this [id number] Note* ED Attestation Note - Ronnie Montoya [...] in both lower extremities to approximately the aht-fm-hrufq calf area bilaterally, but there are no signs of infection. There is no redness. [employer] Work Phone: [phone]) [phone] Physician Emergency department Note* Sharron Khan PA-C [...] so he went to the ED in [facility]. He had a repeat chest x-ray [...] with COPD and PAD who presents to theemergency department with shortness of breath and cough [...] METABOLIC PANEL - Normal Narrative: [facility] Laboratory Services has implemented the eGFR calculation approach that does not have a coefficient for race that conforms to the NKF-ASN Task Force Recommendations. CBC AND DIFFERENTIAL Narrative: The following orders were created for panel order CBC w/ Diff. Procedure Abnormality Status --------- ------ CBC Auto Differential[[id number]] Abnormal Final result Please view results for [...] this documentation, there is a possibility of gpxdw-l-vrbe errors inherent to this technology that may be missed during proofreading.) Sharron Khan PA-C 11/03/222150 [facility] Work Phone: [phone] Emergency department Triage note* Aimee Owens RN - 11/03/2022 12:43 PM EST Pt arrives to the ED with multiple complaints. Per daughter patient has fluid on his lungs and there is concern for pneumonia. Daughter also states that there is concern for infection in his foot amputation from 2019. [id number] History of Present illness Narrative* Violetta Borjas MA - 09/20/2022 11:[address] Sarabia has ordered a carotid duplex. An attempt was made by phone and a letter was mailed with no response. Patient is due for testing for PAD 05/20. documented in this [id number] History of Present illness Narrative* Dahiana Coelho - 07/14/2022 11:00 AM EST Ortho Nurse - Established Patient Intake Room#: 5 Date: 07/14/2022 10:49 AM Patient: Tristin Powell Sr. MR#: [id number] : 1940 Age: 82 y.o. 1yr R [...] Allergies: He has No Known Allergies. * Scar Ortega APRN-KAMARI - 07/14/2022 11:00 AM EST HPI: Patient [...] on face to face time with patient. Scar Ortega APRN-KAMARI I have reviewed the findings of my clinical staff below and agree with their assessment. Ortho Nurse - Established Patient Intake Room#: 5 Date: 07/14/2022 10:49 AM Patient: Tristin Powell . MR#: [id number] : 1940 Age: 82 y.o. 1yr R [...] has No Known Allergies. documented in this [facility]09-06-2022 Evaluation note* Encounter Date Diagnosis Assessment Notes [...] will see him back in 6 months. [employer] Other 08-23-2022 Evaluation note* Encounter Date Diagnosis [...] He understands and agrees with that plan. [employer] Other 08-22-2022 History of Present illness Narrative* Aaron Fenton DPM - 04/18/2022 5:23 PM EDT Refer to note during admission documented in this [id number] Hospital course Narrative* Alexander Pascual MD - 04/15/2022 6:51 PM EDT Images from the original note were not included. [facility] DISCHARGE SUMMARY Tristin Powell Account: [id number] Admitted: 04/14/2022 Discharge Date/Time: 04/15/22 / 7:44 PM Clinical Summary Handoff to PCP Routine hospital follow up Tristin Powell is a 82 y.o. male with a history of HTN, HFpEF, PAD with bypass/stenting/amputation, CAD who recently discharged 01/21/22 after cellulitis L ankle who presented to [facility] Observation 04/14/2022 with worsening R leg pain [...] Physician(s) Family: Flash Lovelace MD, , Address: [address] [place] [address] Follow Up: Mohsen Sarabia MD [address] [place] [address] Follow up Call office to schedule followup appointment in ~2 weeks Flash Lovelace MD [address] [place], [place] [id number] Follow up As needed Laboratory Follow Up by [facility]: None Additional Information: Patient seen and examined day of discharge. For more information regarding patient's care, including complete radiology reports, please contact [facility] at Patient instructions, including activity, were given to the patient/family at discharge. Please seethe After Visit Summary in the medical record for details. Completed by: Alexander Pascual on 04/15/22, 7:44 PM documented in this [id number] Note* Plan of Care - Lizz Damon [...] Goal: Absence of falls Outcome: Partially Met [id number] Miscellaneous Notes* Plan of Care - Lizz [...] falls Outcome: Partially Met documented in this [id number] History of Present illness Narrative* Rima Wu DO - 04/15/2022 1:01 PM EDT [facility] Observation Progress Note 04/15/2022 Tristin Powell 1940 [id number] Assessment/Plan: Tristin Powell is a 82 y.o. male with a history of HTN, HFpEF, PAD with bypass/stenting/amputation, CAD who recently discharged 01/21/22 after cellulitis L ankle who presented to [facility] Observation 04/14/2022 with worsening R leg pain [...] Estimated discharge date:04/15/22 Subjective: Patient new to md, seen and examined, with labs/imaging reviewed and [...] Date INR 1.1 04/14/2022 documented in this [id number] Consult note* Darrick Calixto DO - 04/15/2022 2:37 AM EDTAssociated Order(s): IP CONSULT TO VASCULAR SURGERY VASCULAR SURGERY CONSULT Patient Name: Tristin Powell Reason for Consult: PAD ASSESSMENT AND PLAN Tristin Powell is a 82 y.o. male with history of PAD, s/p L transmetatarsal amputation (2019, Dr. Mann), s/p peroneal femoral bypass R saphenous vein harvest (2018, Dr. Sarabia), CAD s/p CABG x3 who presented to [facility] on 04/14/2022 with CLI of RLE. YAMILE [...] eval in am - Discussed with Dr. Monty Calixto, General Surgery PGY-2 Please contact surgical general internal medicine doctor physician compensation analyst 5PM-6AM and weekends - #[phone] VTS Pager - #[phone] HISTORY OF PRESENT ILLNESS Tristin Powell is a 82 y.o. male with history of PAD, s/p L transmetatarsal amputation (2019, Dr. Mann), s/p peroneal femoral bypass R saphenous vein harvest (2019, Dr. Sarabia), CAD s/p CABG x3 who presented to [facility] on 04/14/2022 with CLI of RLE. Patient presenting with 6 weeks of worsened right lower extremity pain. Patient is limited in his mobility due to his left-sided TMA. Patient reports increasing numbness and pain in his foot as well as claudication symptoms while ambulating. Patient was directed to [facility] by his PCP for evaluation. Per discussion [...] zoster Hyperlipidemia Hypertension PAD (peripheral artery disease) ([facility]) 01/21/2022 Prostate cancer ([facility]) Vascular disease Past Surgical History: Procedure Laterality Date 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/08/2018 Procedure: LEFT MIDFOOT AMPUTATION; Surgeon: Flynn Mann DPM; Location: [facility] OR; Service: Podiatry ANKLE SURGERY Left BYPASS PERONEAL FEMORAL Right 09/07/2018 Procedure: BYPASS PERONEAL FEMORAL, RIGHT SAPHENOUS VEIN HARVEST, COMPLETION ANGIOGRAM; Surgeon: Mohsen Sarabia MD; Location: [facility]; Service: Cardiovascular CARDIAC CATHETERIZATION Left 09/05/2018 Procedure: Angio Lower Extremity; Surgeon: Ben Hahn MD; Location: [facility] TELE[facility]ET [facility]; Service: Cardiovascular CARDIAC SURGERY 2017 triple bypass EGD N/A 10/10/2018 Procedure: ESOPHAGOGASTRODUODENOSCOPY; Surgeon: Ben Jensen MD; Location: [facility]; Service: Gastroenterology EYE SURGERY Right 2015 [...] personally examined the patient and agree with resident/SHRUB GROWER/PA assessment and plan with the following additional [...] it can be done as an outpatient. [employer] Work Phone: [phone]) 724-395408-19-2022 Consult note* Darrick Calixto DO - 04/15/2022 2:37 AM EDTAssociated Order(s): IP CONSULT TO VASCULAR SURGERY VASCULAR SURGERY CONSULT Patient Name: Tristin Powell [facility] #: [id number] Reason for Consult: PAD ASSESSMENT AND PLAN Tristin Powell is a 82 y.o. male with history of PAD, s/p L transmetatarsal amputation (2019, Dr. Mann), s/p peroneal femoral bypass R saphenous vein harvest (2018, Dr. Sarabia), CAD s/p CABG x3 who presented to [facility] on 04/14/2022 with CLI of RLE. YAMILE [...] eval in am - Discussed with Dr. Monty Calixto, General Surgery PGY-2 Please contact surgical general internal medicine doctor physician compensation analyst 5PM-6AM and weekends - #[phone] VTS Pager - #[phone] HISTORY OF PRESENT ILLNESS Tristin Powell is a 82 y.o. male with history of PAD, s/p L transmetatarsal amputation (2019, Dr. Mann), s/p peroneal femoral bypass R saphenous vein harvest (2019, Dr. Sarabia), CAD s/p CABG x3 who presented to [facility] on 04/14/2022 with CLI of RLE. Patient presenting with 6 weeks of worsened right lower extremity pain. Patient is limited in his mobility due to his left-sided TMA. Patient reports increasing numbness and pain in his foot as well as claudication symptoms while ambulating. Patient was directed to [facility] by his PCP for evaluation. Per discussion [...] Arthritis Avascular necrosis of bone of hip ([facility]) Claudication ([facility]) Coronary artery disease Herpes zoster Hyperlipidemia Hypertension PAD (peripheral artery disease) ([facility]) 01/21/2022 Prostate cancer ([facility]) Vascular disease Past Surgical History: Procedure Laterality Date 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/08/2018 Procedure: LEFT MIDFOOT AMPUTATION; Surgeon: Flynn Mann DPM; Location: [facility] OR; Service: Podiatry ANKLE SURGERY Left BYPASS PERONEAL FEMORAL Right 09/07/2018 Procedure: BYPASS PERONEAL FEMORAL, RIGHT SAPHENOUS VEIN HARVEST, COMPLETION ANGIOGRAM; Surgeon: Mohsen Sarabia MD; Location: [facility]; Service: Cardiovascular CARDIAC CATHETERIZATION Left 09/05/2018 Procedure: Angio Lower Extremity; Surgeon: Ben Hahn MD; Location: [facility] TELE[facility]ET FIN[facility]; Service: Cardiovascular CARDIAC SURGERY 2017 triple bypass EGD N/A 10/10/2018 Procedure: ESOPHAGOGASTRODUODENOSCOPY; Surgeon: Ben Jensen MD; [place] [facility] [place]; Service: Gastroenterology EYE SURGERY Right 2015 [...] personally examined the patient and agree with resident/SHRUB GROWER/PA assessment and plan with the following additional [...] done as an outpatient. documented in this [id number] Emergency department Note* Rose Bautista RN - 04/15/2022 12:13 AM EDT Patient moved into hospital bed [id number] Emergency department Note* Rose Bautista RN - 04/15/2022 12:13 AM EDT Patient moved into hospital bed * MIGUE Berumen - 04/14/2022 11:24 PM EDT [facility] to write admission orders [id number]. * Carson Brock MD - 04/14/2022 8:24 PM EDT [facility] EMERGENCY DEPARTMENT PCP - Flash Lovelace MD Chief Complaint Patient presents with Leg Swelling HPI MEDICAL DECISION MAKING 82-year-old male presents to [facility] emergency department chief complaint of right leg [...] an ultrasound ordered by his doctor at 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 His primary doctor recommended he present here for evaluation from his vascular surgeon Dr. Sarabia and patient presents here via triage. Patient reports compliance with home medications including anticoagulation with Xarelto and aspirin. 82-year-old male presents to [facility] emergency department chief plaint of right foot [...] time. He will be admitted to the [facility] observation unit. CLINICAL IMPRESSION 1. PAD (peripheral [...] METABOLIC PANEL - Normal Narrative: [facility] Laboratory Services has implemented the [...] Procedure Abnormality Status --------- ------ CBC Auto Differential[[id number]] Abnormal Final result Please view results for [...] 5. Chronic findings including severe pancolonic diverticulosis. [employer] Workstation ID: [id number] Medications Ordered/Given During ED [...] -- -- 77 16 -- -- -- 04/14/222119 -- -- -- -- 16 -- -- [...] MIDFOOT AMPUTATION; Surgeon: Flynn Mann DPM; Location: [facility] OR; Service: Podiatry ANKLE SURGERY Left BYPASS PERONEAL FEMORAL Right 09/07/2018 Procedure: BYPASS PERONEAL FEMORAL, RIGHT SAPHENOUS VEIN HARVEST, COMPLETION ANGIOGRAM; Surgeon: Mohsen Sarabia MD; Location: [facility]; Service: Cardiovascular CARDIAC CATHETERIZATION Left 09/05/2018 Procedure: Angio Lower Extremity; Surgeon: Ben Hahn MD; Location: [facility]; Service: Cardiovascular CARDIAC SURGERY 2017 triple bypass EGD N/A 10/10/2018 Procedure: ESOPHAGOGASTRODUODENOSCOPY; Surgeon: Ben Jensen MD; [place] [facility] [place]; Service: Gastroenterology EYE SURGERY Right 2015 [...] portions of this note were created using Penneo voice recognition software.* Carson Brock MD 04/14/22 [id number] * Amairani Bucio RN - 04/14/2022 7:29 PM EDT Patient arrives in a wheelchair with a cc of right leg swelling. The patient was at [facility] and they told him he has a blood clot in the right leg and he needs to come down to [facility] to see hisvascular surgeon that he sees here. documented in this [id number] History and physical note* Jagruti Moore Jr., MD - 04/14/2022 11:51 PM EDT Images from the original note were not included. [employer] Obs History and Physical Note 04/15/22 Tristin Powell 1940 [id number] Assessment/Plan: Tristin Powell is a 82 y.o. male with a history of HTN, HFpEF, PAD with bypass/stenting/amputation, CAD who recently discharged 01/21/22 after cellulitis L ankle who presented to [facility] Observation 04/14/2022 with worsening R leg pain [...] zoster Hyperlipidemia Hypertension PAD (peripheral artery disease) ([facility]) 01/21/2022 Prostate cancer ([facility]) Vascular disease Past Surgical History: Procedure Laterality Date 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/08/2018 Procedure: LEFT MIDFOOT AMPUTATION; Surgeon: Flynn Mann DPM; Location: [facility] OR; Service: Podiatry ANKLE SURGERY Left BYPASS PERONEAL FEMORAL Right 09/07/2018 Procedure: BYPASS PERONEAL FEMORAL, RIGHT SAPHENOUS VEIN HARVEST, COMPLETION ANGIOGRAM; Surgeon: Mohsen Sarabia MD; Location: [facility]; Service: Cardiovascular CARDIAC CATHETERIZATION Left 09/05/2018 Procedure: Angio Lower Extremity; Surgeon: Ben Hahn MD; Location: [facility] TELE[facility] CAB[facility]ET FIN[facility]; Service: Cardiovascular CARDIAC SURGERY 2017 triple bypass EGD N/A 10/10/2018 Procedure: ESOPHAGOGASTRODUODENOSCOPY; Surgeon: Ben Jensen MD; [place] [facility] [place]; Service: Gastroenterology EYE SURGERY Right 2015 [...] by mouth 2 (two) times a day 1/ tab . Commonly known as: LIPITOR fluticasone [...] Results Component Value Date INR 1.1 04/14/2022 [id number] History and physical note* Jagruti Moore Jr., MD - 04/14/2022 11:51 PM EDT Images from the original note were not included. [employer] Obs History and Physical Note 04/15/22 Tristin Powell 1940 [id number] Assessment/Plan: Tristin Powell is a 82 y.o. male with a history of HTN, HFpEF, PAD with bypass/stenting/amputation, CAD who recently discharged 01/21/22 after cellulitis L ankle who presented to [facility] Observation 04/14/2022 with worsening R leg pain and outpatient u/s showing stenois of superficial femoral artery and occlusion of popliteal artery. Vascular surgery consulted and requested medone obs admission. Ct angiowith lower extrem with no change since 12/2021. PAD: R leg pain, known PAD. YAMLIE 04/14/22 with 0.59 showing mild small vessel [...] MIDFOOT AMPUTATION; Surgeon: Flynn Mann DPM; Location: [facility] OR; Service: Podiatry ANKLE SURGERY Left BYPASS PERONEAL FEMORAL Right 09/07/2018 Procedure: BYPASS PERONEAL FEMORAL, RIGHT SAPHENOUS VEIN HARVEST, COMPLETION ANGIOGRAM; Surgeon: Mohsen Sarabia MD; Location: [facility]; Service: Cardiovascular CARDIAC CATHETERIZATION Left 09/05/2018 Procedure: Angio Lower Extremity; Surgeon: Ben Hahn MD; Location: [facility] TELE[facility]INET FIN[facility]ER; Service: Cardiovascular CARDIAC SURGERY 2017 triple bypass EGD N/A 10/10/2018 Procedure: ESOPHAGOGASTRODUODENOSCOPY; Surgeon: Ben Jensen MD; [place] [facility] [place]; Service: Gastroenterology EYE SURGERY Right 2015 [...] Date INR 1.1 04/14/2022 documented in this [id number] Emergency department Note* MIGUE Berumen - 04/14/2022 11:24 PM EDT KelseyLUCY to write admission orders [id number]. [id number] Physician Emergency department Note* Carson Brock MD - 04/14/2022 8:24 PM EDT [facility] EMERG[facility]Y DEPARTMENT PCP - Flash Lovelace MD Chief Complaint Patient presents with Leg Swelling HPI MEDICAL DECISION MAKING 82-year-old male presents to [facility] emergency department chief complaint of right leg [...] an ultrasound ordered by his doctor at 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 His primary doctor recommended he present here for evaluation from his vascular surgeon Dr. Sarabia and patient presents here via triage. Patient reports compliance with home medications including anticoagulation with Xarelto and aspirin. 82-year-old male presents to [facility] emergency department chief plaint of right foot [...] time. He will be admitted to the [facility] observation unit. CLINICAL IMPRESSION 1. PAD (peripheral [...] METABOLIC PANEL - Normal Narrative: [facility] Laboratory Services has implemented the [...] Procedure Abnormality Status --------- ------ CBC Auto Differential[[id number]] Abnormal Final result Please view results for [...] 5. Chronic findings including severe pancolonic diverticulosis. [employer] Workstation ID: [id number] Medications Ordered/Given During ED [...] -- -- 77 16 -- -- -- 04/14/222119 -- -- -- -- 16 -- -- -- 04/14/22 2100 (!) 161/77 -- -- 77 12 96 % -- -- 04/14/222006 (!) 180/71 -- -- 81 18 97 % -- -- 04/14/22 193 (!) 200/95 98.4 F (36.9 C) Oral [...] zoster Hyperlipidemia Hypertension PAD (peripheral artery disease) ([facility]) 01/21/2022 Prostate cancer ([facility]) Vascular disease Past Surgical History Past Surgical History: Procedure Laterality Date 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/08/2018 Procedure: LEFT MIDFOOT AMPUTATION; Surgeon: Flynn Mann DPM; Location: [facility] OR; Service: Podiatry ANKLE SURGERY Left BYPASS PERONEAL FEMORAL Right 09/07/2018 Procedure: BYPASS PERONEAL FEMORAL, RIGHT SAPHENOUS VEIN HARVEST, COMPLETION ANGIOGRAM; Surgeon: Mohsen Sarabia MD; Location: [facility] OR; Service: Cardiovascular CARDIAC CATHETERIZATION Left 09/05/2018 Procedure: Angio Lower Extremity; Surgeon: Ben Hahn MD; Location: [facility] TELE[facility]ION CABINET FINISHER; Service: Cardiovascular CARDIAC SURGERY 2017 triple bypass EGD N/A 10/10/2018 Procedure: ESOPHAGOGASTRODUODENOSCOPY; Surgeon: Ben Jensen MD; [place] [facility] [place]; Service: Gastroenterology EYE SURGERY Right 2015 [...] portions of this note were created using Penneo voice recognition software.* Carson Brock MD 04/14/22 6317 [facility] Work Phone: 1(818) 710-702608-18-2022 Emergency department Triage note* Amairani Bucio RN - 04/14/2022 7:29 PM EDT Patient arrives in a wheelchair with a cc of right leg swelling. The patient was at [facility] and they told him he has a blood clot in the right leg and he needs to come down to [facility] to see hisvascular surgeon that he sees here. [id number] History of Present illness Narrative* Katie Anna RN - 04/14/2022 5:54 PM EDT Vascular Resident paged twice, awaiting response Dr. Sarabia notified that patient is coming to [facility] ED for further evaluation. 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 He reports [...] MIDFOOT AMPUTATION; Surgeon: Flynn Mann DPM; Location: [facility] OR; Service: Podiatry ANKLE SURGERY Left BYPASS PERONEAL FEMORAL Right 09/07/2018 Procedure: BYPASS PERONEAL FEMORAL, RIGHT SAPHENOUS VEIN HARVEST, COMPLETION ANGIOGRAM; Surgeon: Mohsen Sarabia MD; Location: [facility]; Service: Cardiovascular CARDIAC CATHETERIZATION Left 09/05/2018 Procedure: Angio Lower Extremity; Surgeon: Ben Hahn MD; Location: [facility] TELE[facility]ET FIN[facility]; Service: Cardiovascular CARDIAC SURGERY 2017 triple bypass EGD N/A 10/10/2018 Procedure: ESOPHAGOGASTRODUODENOSCOPY; Surgeon: Ben Jensen MD; [place] [facility] [place] [place]; Service: Gastroenterology EYE SURGERY Right 2015 [...] Radiology, Cardiology, and Medications documented in this [id number] History of Present illness Narrative* Alma Delia Page RN - 01/21/2022 2:58 PM EDT This RN went over discharge instructions and prescriptions with the patient. Pt verbalized understanding. All questions were answered. IV was removed. All personal belongings sent home with patient. PT was taken down by wheelchair to [facility] main entrance. * Gustavo Gonzalez DO - 01/21/2022 7:01 AM EDT [facility] Progress Note 01/21/2022 Tristin Powell 1940 [id number] Assessment/Plan: Tristin Powell is a 82 y.o. male with a history of HTN, CAD, PVD who presented to [facility] 01/18/2022 with progressive left ankle pain, redness, swelling not improved with oral antibiotics. Admit XR non-acute, temp 100.7, CRP 63.5, WBC 6.76, ESR 18. Cultures with no growth to date. LLE Cellulitis: Per chart, hx MRSA in 2018. 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 Admit temp 100.7, has remained afebrile ever since. No leukocytosis. Admit blood cultures NGTD. Admit CTA/runoff with no evidence of deeper infection, LLE graft patent. Continue vancomycin, will plan to transition to PO Bactrim on 01/21.Continue pain control. Recommend outpatient follow-up with [facility] in [place]. Bilateral PAD: Per history. LLE angio w/ [...] days Lab Units 01/20/22 0823 01/19/22 0336 01/18/22211601/18/22 210 SODIUM mmol/L 141 141 -- 138 POTASSIUM mmol/L 4.3 4.1 -- 4.2 CHLORIDE mmol/L 107 108 -- 103 BICARB mmol/L 25 -- 26 BUN mg/dL 12 13 -- [...] pancreatic lesion.He will follow up with his transportation dispatcher and [facility] in [place] to determine if his prothesis could be [...] calcified granulomas. -Solitary lung nodule malignancy risk ([place]) score: 17.6% -Recommend PET as an outpatient and follow up with [facility] closer to home. Possible biopsy iffindings persist. [...] Carson Banks MD 1:01 PM 01/20/22 Pager: [phone] Chief Complaint Chief Complaint Patient presents with [...] and recommend this to be done at [facility] with either Drs. Carson Gallagher or Wagner Moon. Please place referral to either their clinics at discharge. COPD: Suspected diagnosis with significant emphysematous changes noted on CT likely due to occupational exposures. -Start Spiriva and as needed albuterol moving forward as well as follow-up in the pulmonary medicine clinic close to home for formal PFTs. DVT Prophylaxis: Nissarelkatie Please call with any further questions or concerns. Dr. Ananda Mirza DO Pulmonary and Critical Care Medicine 2:56 PM 01/20/22 * Rossana Fernandez RPh,PharmD - 01/20/2022 11:23 AM EDT PHARMACOTHERAPY KINETICS QUICK NOTE Due to decrease in serum creatinine, vancomycin will be changed to 1750mg Q18H. Will plan for next vancomycin level 01/23 at 1200. Pharmacist: Rossana Fernandez RPh,PharmD Contact Number: [phone] ([employer]) or secure chat * Gustavo Gonzalez DO - 01/20/2022 7:01 AM EDT [facility] Progress Note 01/20/2022 Tristin Powell 1940 [id number] Assessment/Plan: Tristin Powell is a 82 y.o. male with a history of HTN, CAD, PVD who presented to [facility] 01/18/2022 with progressive left ankle pain, redness, swelling not improved with oral antibiotics. Admit XR non-acute, temp 100.7, CRP 63.5, WBC 6.76, ESR 18. LLE Cellulitis: Per chart, hx MRSA in 2019. 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 Admit temp 100.7, has remained afebrile ever since. No leukocytosis. Admit blood cultures NGTD. Admit CTA/runoff with no evidence of deeper infection, LLE graft patent. Continue vancomycin, will plan to transition to PO Bactrim on 01/21.Continue pain control. Recommend outpatient follow-up with [facility] in [place]. Bilateral PAD: Per history. LLE angio w/ [...] days Lab Units 01/19/22 0336 01/18/22211601/18/22 2105 SODIUM mmol/L 141 -- 138 POTASSIUM [...] - 01/20/2022 2:13 PM EDT Attending Attestation (SEAN) Tristin Powell is a 82 y.o. male with a history of HTN, HFpEF, PAD complicated by Bypass, Stenting, and L Foot Amputation, CAD who presented to [facility] on 01/18/22 with 3-4 days of progressive [...] improving. Discussed he should follow up with [facility] in [place] to further explore if his stump prothesis [...] Rosas MD - 01/19/2022 6:43 AM EDT [facility] Progress Note 01/19/2022 Tristin Powell 1940 [id number] Assessment/Plan: Tristin Powell is a 82 y.o. male with a history of HTN, CAD, PVD who presented to [facility] 01/18/2022 with progressive left ankle pain, redness, swelling not improved with oral antibiotics. Admit XR non-acute, temp 100.7, CRP 63.5, WBC 6.76, ESR 18. LLE Cellulitis: Per chart, hx MRSA in 2018. 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 Admit temp 100.7. [...] TBD Estimated discharge date: TBD Alma Delia Rsoas , See attending attestation for corrections to [...] from last 7 days Lab Units 01/19/22 03301/18/22211601/18/222104 WBC K/mcL 5.34 -- 6.76 HGB g/dL 12.4* -- 14.0 HCT % 36.8* -- 39.2* HEMATOCRITPOC % -- 42 -- PLT K/mcL 115* -- 150 Results from last 7 days Lab Units 01/19/22 0336 01/18/22211601/18/22 2105 SODIUM mmol/L 141 -- 138 POTASSIUM [...] - 01/20/2022 6:38 AM EDT Attending Attestation (SEAN) Tristin Powell is a 82 y.o. male with a history of HTN, HFpEF, PAD complicated by Bypass, Stenting, and L Foot Amputation, CAD who presented to [facility] on 01/18/22 with 3-4 days of progressive [...] urine output (if available) daily.vancomyicin / aminoglycoside recommendations:[id number]:s} Pharmacy will continue to follow, order levels, and make adjustments as needed. Please call pharmacy with questions. Current antibiotic regimen includes: ceftriaxone 2000mg q24h Objective: Ht Readings from Last 1 Encounters: 01/18/22 6' 2 (188 cm) Wt Readings from Last 1 Encounters: 01/18/22 113.4 kg (250 lb) [place] body weight: 82.2 kg (181 lb 3.5 [...] Component Value Units Date/Time Blood Culture Aerobic/Anaerobic [[id number]] (Normal) Collected: 01/18/222104 Order Status: Completed Specimen: Blood, Peripheral Updated: 01/18/222357 Culture In Progress; No Growth to Date Blood Culture Aerobic/Anaerobic [[id number]] (Normal) Collected: 01/18/222104 Order Status: Completed Specimen: Blood, Peripheral Updated: 01/18/222357 Culture In Progress; No Growth to Date Pharmacist: El Owen RPh,PharmD Contact Number: documented in this [id number] Hospital course Narrative* Muan Otto MD - 01/21/2022 2:32 PM EDT Images from the original note were not included. [facility] DISCHARGE SUMMARY Tristin Powell Account: [id number] Admitted: 01/18/2022 PCP: Flash Lovelace MD Discharge [...] L Foot Amputation, CAD who presented to [facility] on 01/18/22 with 3-4 days of progressive [...] lesion. He will follow up with his transportation dispatcher (Dr. Mann) and [facility] in [place] to determine if his prothesis could be [...] These medications were sent to [facility] [id number] [facility] [address] [facility] [address] [address] [address] [place] [address] albuterol 2.5 mg /3 mL (0.083 %) nebulizer solution sulfamethoxazole-trimethoprim 800-160 mg per tablet tiotropium bromide 2.5 mcg/actuation Mist Physician(s) Family: Flash Lovelace MD, , Address: [address] [place], [place] [id number] Follow Up: Flash Lovelace MD [address] [place], [place] [id number] Follow up Carson Gallagher MD [address] [place] [address] [address] [facility] [phone] Follow up Please call to set up appointment to follow up on your lung nodule and newly diagnosed COPD (chronic obstructive pulmonary disease) Flynn Mann DPM [address] [facility] [address] [facility] [address] Schedule an appointment as soon as possible for a visit Additional Information: Patient seen and examined day of discharge. For more information regarding patient's care, including complete radiology reports, please contact [facility] at Patient instructions, including activity, were given to the patient/family at discharge. Please seethe After Visit Summary in the medical record for details. Time spent on discharge: > 30 minutes Completed by: Muna Otto on 01/21/22, 2:32 PM documented in this [id number] Hospital Discharge instructions * Discharge Instr - AVS First Page* Muna Otto MD - 01/21/2022 11:26 AM EDT Dear Mr. Powell, [facility] came to [facility] for left ankle pain, redness, and [...] PCP to discuss further pancreatic workup - [facility] in [place], [place] to discuss your prosthetics. Thank you for letting us be a part of your care team, [facility] * Attachments The following attachments cannot be sent through Care Everywhere. * Cellulitis (American) * Pulmonary Nodules: General Info (American) documented in this [id number] Consult note* Leeanna Melgoza OT - 01/21/2022 [...] deficit. 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 [...] Function Receives Help From: Family Level of [place] - Transfers/Ambulation/Mobility: Independent with functional transfers, Independent with household ambulation, Independent with community ambulation Level of [place] - ADLs: Independent Level of [place] - Homemaking: Independent Driving: Patient drives Vocational: [...] MIDFOOT AMPUTATION; Surgeon: Flynn Mann DPM; Location: [facility] OR; Service: Podiatry ANKLE SURGERY Left BYPASS PERONEAL FEMORAL Right 09/07/2018 Procedure: BYPASS PERONEAL FEMORAL, RIGHT SAPHENOUS VEIN HARVEST, COMPLETION ANGIOGRAM; Surgeon: Mohsen Sarabia MD; Location: [facility] OR; Service: Cardiovascular CARDIAC CATHETERIZATION Left 09/05/2018 Procedure: Angio Lower Extremity; Surgeon: Ben Hahn MD; Location: [facility] 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 [id number] Consult note* Leeanna Melgoza OT - 01/21/2022 [...] deficit. 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 [...] Function Receives Help From: Family Level of [place] - Transfers/Ambulation/Mobility: Independent with functional transfers, Independent with household ambulation, Independent with community ambulation Level of [place] - ADLs: Independent Level of [place] - Homemaking: Independent Driving: Patient drives Vocational: [...] MIDFOOT AMPUTATION; Surgeon: Flynn Mann DPM; Location: [facility] OR; Service: Podiatry ANKLE SURGERY Left BYPASS PERONEAL FEMORAL Right 09/07/2018 Procedure: BYPASS PERONEAL FEMORAL, RIGHT SAPHENOUS VEIN HARVEST, COMPLETION ANGIOGRAM; Surgeon: Moshen Sarabia MD; Location: [facility]; Service: Cardiovascular CARDIAC CATHETERIZATION Left 09/05/2018 Procedure: Angio Lower Extremity; Surgeon: Ben Hahn MD; Location: [facility] TELE[facility] CABINET FINISHER; Service: Cardiovascular CARDIAC SURGERY 2017 triple bypass EGD N/A 10/10/2018 Procedure: ESOPHAGOGASTRODUODENOSCOPY; Surgeon: Ben Jensen MD; [place] [facility] [place]; Service: Gastroenterology EYE SURGERY Right 2015 [...] Contact guard assist (when in stand-scoot posture.) Director Inbound Sales - Standing Dynamic: BUE (wheelchair; and NWB on LLE.) Loss of Balance- Standing Dynamic: intermittent Bed Mobility Rolling: Modified independent Supine to Sit: Modified independent Sit to Supine: Modified independent Director Inbound Sales: bedrails, bed positioning mechanics Transfers Squat Pivot Transfers: Stand by assist, Contact guard assist Director Inbound Sales: wheelchair Additional Transfer Trial 2: Yes Squat Pivot Transfers Trial 2: Stand by assist, Contact guard assist Director Inbound Sales Trial 2: wheeled walker Gait/Locomotion Wheelchair Mobility: [...] baseline. Prior Level of Function Level of [place] - Transfers/Ambulation/Mobility: Independent with functional transfers, Independent with household ambulation Level of [place] - ADLs: Independent Subjective Impression - Prior [...] MIDFOOT AMPUTATION; Surgeon: Flynn Mann DPM; Location: [facility] OR; Service: Podiatry ANKLE SURGERY Left BYPASS PERONEAL FEMORAL Right 09/07/2018 Procedure: BYPASS PERONEAL FEMORAL, RIGHT SAPHENOUS VEIN HARVEST, COMPLETION ANGIOGRAM; Surgeon: Mohsen Sarabia MD; Location: [facility]; Service: Cardiovascular CARDIAC CATHETERIZATION Left 09/05/2018 Procedure: Angio Lower Extremity; Surgeon: Ben Hahn MD; Location: [facility] TELE[facility] CABINET FIN[facility]ER; Service: Cardiovascular CARDIAC SURGERY 2017 triple bypass EGD N/A 10/10/2018 Procedure: ESOPHAGOGASTRODUODENOSCOPY; Surgeon: Ben Jensen MD; [place] [facility] [place]; Service: Gastroenterology EYE SURGERY Right 2015 [...] calcified granulomas. -Solitary lung nodule malignancy risk ([place]) score: 17.6% -Recommend PET as an outpatient and follow up with Molecular Modeler closer to home. Possible biopsy iffindings persist. [...] Ngoc Banks MD Preliminary Medicine PGY1 Pager: [phone] Reason for Consultation: Suspicious Pulm nodule with [...] dust over the years while working in [employer]. Denies recent weight loss. Notes a few [...] MIDFOOT AMPUTATION; Surgeon: Flynn Mann DPM; Location: [facility] OR; Service: Podiatry ANKLE SURGERY Left BYPASS PERONEAL FEMORAL Right 09/07/2018 Procedure: BYPASS PERONEAL FEMORAL, RIGHT SAPHENOUS VEIN HARVEST, COMPLETION ANGIOGRAM; Surgeon: Mohsen Sarabia MD; Location: [facility]; Service: Cardiovascular CARDIAC CATHETERIZATION Left 09/05/2018 Procedure: Angio Lower Extremity; Surgeon: Ben Hahn MD; Location: [facility] TELE[facility]ION CABINET FINISHER; Service: Cardiovascular CARDIAC SURGERY 2017 triple bypass EGD N/A 10/10/2018 Procedure: ESOPHAGOGASTRODUODENOSCOPY; Surgeon: Ben Jensen MD; [place] [facility] [place]; Service: Gastroenterology EYE SURGERY Right 2015 [...] data reviewed No results for input(s): PHART, ABS4IHW, PO2ART, S2GEZBVW, RESPRATE, TIDALVOL, PEEP, Z4FMFPUM in the last 72 hours. Recent Labs [...] and recommend this to be done at [facility] with either Drs. Carson Gallagher or [...] Medicine 5:26 PM 01/19/22 documented in this [id number] Consult note* Jay FosterBjorn Emelina, PT - 01/20/2022 3:59 PM EDT Physical [...] Contact guard assist (when in stand-scoot posture.) Director Inbound Sales - Standing Dynamic: BUE (wheelchair; and NWB on LLE.) Loss of Balance- Standing Dynamic: intermittent Bed Mobility Rolling: Modified independent Supine to Sit: Modified independent Sit to Supine: Modified independent Director Inbound Sales: bedrails, bed positioning mechanics Transfers Squat Pivot Transfers: Stand by assist, Contact guard assist Director Inbound Sales: wheelchair Additional Transfer Trial 2: Yes Squat Pivot Transfers Trial 2: Stand by assist, Contact guard assist Director Inbound Sales Trial 2: wheeled walker Gait/Locomotion Wheelchair Mobility: [...] baseline. Prior Level of Function Level of [place] - Transfers/Ambulation/Mobility: Independent with functional transfers, Independent with household ambulation Level of [place] - ADLs: Independent Subjective Impression - Prior [...] MIDFOOT AMPUTATION; Surgeon: Flynn Mann DPM; Location: [facility] OR; Service: Podiatry ANKLE SURGERY Left BYPASS PERONEAL FEMORAL Right 09/07/2018 Procedure: BYPASS PERONEAL FEMORAL, RIGHT SAPHENOUS VEIN HARVEST, COMPLETION ANGIOGRAM; Surgeon: Mohsen Sarabia MD; Location: [facility]; Service: Cardiovascular CARDIAC CATHETERIZATION Left 09/05/2018 Procedure: Angio Lower Extremity; Surgeon: Ben Hahn MD; Location: [facility] TELE[facility] CABINET FIN[facility]ER; Service: Cardiovascular CARDIAC SURGERY 2017 triple bypass EGD N/A 10/10/2018 Procedure: ESOPHAGOGASTRODUODENOSCOPY; Surgeon: Ben Jensen MD; Location: [facility]; Service: Gastroenterology EYE SURGERY Right 2015 [...] hospital or completion of Physical Therapy Plan. [id number] Note* Sign Off Note - David Christy MD - 01/20/2022 12:38 PM EDT Pulmonary Medicine Sign-Off Medications: Bronchodilators: Recommend initiating Spiriva with PRN Albuterol on dsicharge Home Respiratory Equipment: N/A Follow-up: Imaging: Follow up PET/CT Scan KAJAL in outpatient setting. Please set up at [facility] with Dr Carson Cm or Wagner Moon with referral Pulmonary Function Testing: For diagnosis of COPD Patient with suspicious lung nodule and severe emphysema changes. Also uses Afrin, this should be limited to 2-3 days use at most at a time. Please call with questions David Christy M.D. Internal Medicine PGY-3 Pager: [phone] [facility] Work Phone: [phone] Miscellaneous Notes* Sign Off Note - David Christy MD - 01/20/2022 12:38 PM EDT Pulmonary Medicine Sign-Off Medications: Bronchodilators: Recommend initiating Spiriva with PRN Albuterol on dsicharge Home Respiratory Equipment: N/A Follow-up: Imaging: Follow up PET/CT Scan KAJAL in outpatient setting. Please set up at [facility] with Dr Carson Cm or Wagner Moon with referral Pulmonary Function Testing: For diagnosis of COPD Patient with suspicious lung nodule and severe emphysema changes. Also uses Afrin, this should be limited to 2-3 days use at most at a time. Please call with questions David Christy M.D. Internal Medicine PGY-3 Pager: [phone] * ED Procedure Note - Mikey Mcguire [...] and Critical Limb consultation. documented in this [id number] Consult note* Carson Banks MD - 01/19/2022 [...] calcified granulomas. -Solitary lung nodule malignancy risk ([place]) score: 17.6% -Recommend PET as an outpatient and follow up with Molecular Modeler closer to home. Possible biopsy iffindings persist. [...] Ngoc Banks MD Preliminary Medicine PGY1 Pager: [phone] Reason for Consultation: Suspicious Pulm nodule with [...] dust over the years while working in [employer]. Denies recent weight loss. Notes a few [...] MIDFOOT AMPUTATION; Surgeon: Flynn Mann DPM; Location: [facility] OR; Service: Podiatry ANKLE SURGERY Left BYPASS PERONEAL FEMORAL Right 09/07/2018 Procedure: BYPASS PERONEAL FEMORAL, RIGHT SAPHENOUS VEIN HARVEST, COMPLETION ANGIOGRAM; Surgeon: Mohsen Sarabia MD; Location: [facility]; Service: Cardiovascular CARDIAC CATHETERIZATION Left 09/05/2018 Procedure: Angio Lower Extremity; Surgeon: Ben aHhn MD; Location: [facility] TELE[facility]ION CABINET FINISHER; Service: Cardiovascular CARDIAC SURGERY 2017 triple bypass EGD N/A 10/10/2018 Procedure: ESOPHAGOGASTRODUODENOSCOPY; Surgeon: Ben Jensen MD; [place] [facility] [place]; Service: Gastroenterology EYE SURGERY Right 2015 [...] sodium chloride (PF) 5 mL Intravenous Q8H [facility] [START ON 01/20/2022] vancomycin 1,750 mg Intravenous Q36H Data: Laboratory Data: [x] Pertinent lab data reviewed Radiology: [x] Images personally reviewed Microbiology: [x] Pertinent microbiology data reviewed No results for input(s): PHART, VUY3PCF, PO2ART, W0HLTLBU, RESPRATE, TIDALVOL, PEEP, A8YCEXWJ in the last 72 hours. Recent Labs 01/18/22210401/19/22 0336 WBC 6.76 5.34 HGB 14.0 12.4* PLT 150 115* Recent Labs 01/18/22210401/18/22211601/19/22 033 NA 138 -- 141 K 4.2 -- 4.1 CL 103 -- 108 BICARB -- BUN 14 14 13 CREATININE 1.10 1.35* [...] free of rash Associated attestation - Ananda Mirza, DO - 01/19/2022 5:27 PM EDT The [...] and recommend this to be done at [facility] with either Drs. Carson Gallagher or [...] and Critical Care Medicine 5:26 PM 01/19/22 [id number] Emergency department Note* Violetta Stuart RN - 01/19/2022 2:35 PM EDT Patient provided with warm blanket and coffee. Denies any further needs at this time, visitor at bedside. [id number] Emergency department Note* Violetta Stuart RN - [...] Med one to write orders for admission [phone]...checkout complete * Amy Ojeda PA-C - 01/18/2022 11:14 PM EDT Images from the original note were not included. ED PROVIDER NOTE [facility] EMERGENCY DEPARTMENT NAME: Tristin Powell AGE: 82 y.o. : 1940 VISIT DATE: 01/18/2022 CSN: [id number] PCP: Flash Lovelace MD Chief Complaint Patient [...] MIDFOOT AMPUTATION; Surgeon: Flynn Mann DPM; Location: [facility] OR; Service: Podiatry ANKLE SURGERY Left BYPASS PERONEAL FEMORAL Right 09/07/2018 Procedure: BYPASS PERONEAL FEMORAL, RIGHT SAPHENOUS VEIN HARVEST, COMPLETION ANGIOGRAM; Surgeon: Mohsen Sarabia MD; Location: [facility]; Service: Cardiovascular CARDIAC CATHETERIZATION Left 09/05/2018 Procedure: Angio Lower Extremity; Surgeon: Ben Hahn MD; Location: [facility] TELE[facility] CABINET FINISHER; Service: Cardiovascular CARDIAC SURGERY 2017 triple bypass EGD N/A 10/10/2018 Procedure: ESOPHAGOGASTRODUODENOSCOPY; Surgeon: Ben Jensen MD; Location: [facility]; Service: Gastroenterology EYE SURGERY Right 2015 [...] -- -- -- 94 % -- -- 01/18/22 2043 (!) 144/72 (!) 100.7 F (38.2 C) [...] states he's nauseous, chills documented in this [id number] Emergency department Note* Violetta Stuart RN - 01/19/2022 1:15 PM EDT Patient provided with lunch tray. [id number] Emergency department Note* Maude Vallejo RN - 01/19/2022 10:13 AM EDT patient visited at this time. comfort needs addressed. updated on plan of care. MEAL TRAY DELIVERED AT THIS TIME [id number] History and physical note* Rodri Back DO - 01/18/2022 11:54 PM EDT Images from the original note were not included. [facility] History and Physical Note 01/19/22 Tristin Powell 1940 [id number] Assessment/Plan: Tristin Powell is a 82 y.o. male with a history of HTN, CAD, PVD who presented to [facility] 01/18/2022 with progressive left ankle pain, redness, swelling not improved with oral antibiotics. Admit XR non-acute, temp 100.7, CRP 63.5, WBC 6.76, ESR 18. LLE Cellulitis: Per chart, hx MRSA in 2019. 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 Admit temp 100.7. [...] of HTN, CAD, PVD who presented to [facility] 01/18/2022 with progressive left ankle pain, redness, [...] MIDFOOT AMPUTATION; Surgeon: Flynn Mann DPM; Location: [facility] OR; Service: Podiatry ANKLE SURGERY Left BYPASS PERONEAL FEMORAL Right 09/07/2018 Procedure: BYPASS PERONEAL FEMORAL, RIGHT SAPHENOUS VEIN HARVEST, COMPLETION ANGIOGRAM; Surgeon: Mohsen Sarabia MD; Location: [facility]; Service: Cardiovascular CARDIAC CATHETERIZATION Left 09/05/2018 Procedure: Angio Lower Extremity; Surgeon: Ben Hahn MD; Location: [facility] TELE[facility] CABINET FINISHER; Service: Cardiovascular CARDIAC SURGERY 2017 triple bypass EGD N/A 10/10/2018 Procedure: ESOPHAGOGASTRODUODENOSCOPY; Surgeon: Ben Jensen MD; [place] [facility] [place]; Service: Gastroenterology EYE SURGERY Right 2015 [...] mg/dL -- 107* CALCIUM mg/dL -- 9.2 [id number] History and physical note* Rodri Back DO - 01/18/2022 11:54 PM EDT Images from the original note were not included. [facility]22 Tristin Powell 1940 [id number] Assessment/Plan: Tristin Powell is a 82 y.o. male with a history of HTN, CAD, PVD who presented to [facility] 01/18/2022 with progressive left ankle pain, redness, swelling not improved with oral antibiotics. Admit XR non-acute, temp 100.7, CRP 63.5, WBC 6.76, ESR 18. LLE Cellulitis: Per chart, hx MRSA in 2018. 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 Admit temp 100.7. [...] of HTN, CAD, PVD who presented to [facility] 01/18/2022 with progressive left ankle pain, redness, [...] MIDFOOT AMPUTATION; Surgeon: Flynn Mann DPM; Location: [facility] OR; Service: Podiatry ANKLE SURGERY Left BYPASS PERONEAL FEMORAL Right 09/07/2018 Procedure: BYPASS PERONEAL FEMORAL, RIGHT SAPHENOUS VEIN HARVEST, COMPLETION ANGIOGRAM; Surgeon: Mohsen Sarabia MD; Location: [facility]; Service: Cardiovascular CARDIAC CATHETERIZATION Left 09/05/2018 Procedure: Angio Lower Extremity; Surgeon: Ben Hahn MD; Location: [facility] TELE[facility]ION CABINET FINISHER; Service: Cardiovascular CARDIAC SURGERY 2017 triple bypass EGD N/A 10/10/2018 Procedure: ESOPHAGOGASTRODUODENOSCOPY; Surgeon: Ben Jensen MD; [place] [facility] [place]; Service: Gastroenterology EYE SURGERY Right 2014 FOOT SURGERY ORTHOPEDIC SURGERY STENT PLACEMENT Social [...] CALCIUM mg/dL -- 9.2 documented in this [id number] Emergency department Note* Richie Vallecillo - 01/18/2022 11:29 PM EDT Med one to write orders for admission [phone]...checkout complete [id number] Note* ED Procedure Note - Mikey Mcguire MD - 01/18/2022 11:27 PM EDTAssociated Order(s): ECG 12 Lead ECG 12 Lead Date/Time: 01/18/2022 11:27 PM Performed by: Mikey Mcguire MD Authorized by: Mikey Mcguire MD Interpreted by ED attending physician Rhythm: sinus rhythm BPM: 76 Ectopy: PVCs Conduction: conduction normal ST Segments: ST segments normal T Waves: T waves normal Clinical impression: non-specific ECG [facility] Work Phone: [phone] Physician Emergency department Note* Amy Ojeda PA-C - 01/18/2022 11:14 PM EDT Images from the original note were not included. ED PROVIDER NOTE [facility] EMERGENCY DEPARTMENT NAME: Tristin Powell AGE: 82 y.o. : 1940 VISIT DATE: 01/18/2022 [facility]: [id number] PCP: Flash Lovelace MD Chief Complaint Patient [...] MIDFOOT AMPUTATION; Surgeon: Flynn Mann DPM; Location: [facility] OR; Service: Podiatry ANKLE SURGERY Left BYPASS PERONEAL FEMORAL Right 09/07/2018 Procedure: BYPASS PERONEAL FEMORAL, RIGHT SAPHENOUS VEIN HARVEST, COMPLETION ANGIOGRAM; Surgeon: Mohsen Sarabia MD; Location: [facility]; Service: Cardiovascular CARDIAC CATHETERIZATION Left 09/05/2018 Procedure: Angio Lower Extremity; Surgeon: Ben Hahn MD; Location: [facility] TELE[facility]ION CABINET FINISHER; Service: Cardiovascular CARDIAC SURGERY 2017 triple bypass EGD N/A 10/10/2018 Procedure: ESOPHAGOGASTRODUODENOSCOPY; Surgeon: Ben Jensen MD; [place] [facility] [place]; Service: Gastroenterology EYE SURGERY Right 2015 [...] -- -- -- 94 % -- -- 01/18/22 2043 (!) 144/72 (!) 100.7 F (38.2 C) [...] Historical Med Amy Ojeda PA-C 01/19/22 0028 [facility] Work Phone: [phone] Note* ED Attestation Note - Mikey Mcguire [...] for IV antibiotics and Critical Limb consultation. [id number] Emergency department Triage note* Gregory Alvarado LPN - 01/18/2022 8:37 PM EDT Pt arrives to the ED with c/o redness and swelling to left amputated foot. Redness and swelling noted a couple days ago. Pt states he's nauseous, chills [id number] History of Present illness Narrative* Katie Anna RN - 01/18/2022 4:21 PM EDT Received progress note and images of left lower extremity dated 01-18-[address] Flash Webb. See scanned document in Media. documented in this [id number] History of Present illness Narrative* Светлана Briones [...] 9:08 AM Patient: Tristin Powell . MR#: [id number] : 1940 Age: 82 y.o. Referring Physician: Self, Self Insurance: [facility] / Plan: MEDICARE HUMANA O PPO [...] Allergies: He has No Known Allergies. * Dahsawn Silvestre MD - 01/12/2022 9:20 AM EDT [...] 5. Date: 01/12/2022 9:08 AM Patient: Tristin Bazan Sherry Wills. MR#: [id number] : 1940 Age: 82 y.o. Referring Physician: Self, Self Insurance: Payor: MEDICARE [employer]MANA [employer] PPO / Plan: MEDICARE HUMANA HMO PPO [...] has No Known Allergies. documented in this [facility] History of Present illness Narrative* Ileana Calderónlupe Abdalla, DO - 12/28/2021 10:45 AM EDT Tristin [...] Hypertension Prostate cancer (HCC) Vascular disease Past Medical History Pertinent Negatives: Diagnosis Date Noted Anemia 10/08/2018 Angina pectoris (HCC) 10/08/2018 Anxiety 10/08/2018 Arrhythmia 10/08/2018 Asthma 10/08/2018 Atrial fibrillation (HCC) 10/08/2018 Back pain 10/08/2018 Bladder problem 10/08/2018 Bleeding disorder ([facility]) 10/08/2018 Cataract 10/08/2018 CHF (congestive heart failure) ([facility]) 10/08/2018 Cholelithiasis 10/08/2018 Chronic kidney disease (CKD) 10/08/2018 Chronic pain disorder 10/08/2018 Clostridium difficile infection 10/08/2018 Complication of anesthesia 10/08/2018 COPD (chronic obstructive pulmonary disease) ([facility]) 10/08/2018 Crohn's disease ([facility]) 10/08/2018 Deep vein thrombosis ([facility]) 10/08/2018 Dermatitis 10/08/2018 Diabetes mellitus type I ([facility]) 10/08/2018 Diabetes mellitus, type 2 ([facility]) 10/08/2018 Diverticulosis 10/08/2018 Emphysema of lung ([facility]) 10/08/2018 Fibromyalgia, primary 10/08/2018 Hard to intubate 10/08/2018 Headache 10/08/2018 HIV disease ([facility]) 10/08/2018 Infectious viral hepatitis 10/08/2018 MRSA (methicillin resistant Staphylococcus aureus) 10/08/2018 Neck pain 10/08/2018 Nephrolithiasis 10/08/2018 Osteoporosis 10/08/2018 Overactive bladder 10/08/2018 PAD (peripheral artery disease) ([facility]) 10/08/2018 Parkinson's disease ([facility]) 10/08/2018 Peripheral neuropathy 10/08/2018 Postoperative retention of urine 10/08/2018 Problem with Qureshi catheter ([facility]) 10/08/2018 Rheumatoid arthritis ([facility]) 10/08/2018 Seizures ([facility]) 10/08/2018 Sleep apnea, obstructive 10/08/2018 Stroke ([facility]) 10/08/2018 Thrombophlebitis 10/08/2018 TIA (transient ischemic attack) [...] Ileana Kang DO 12/28/2021 documented in this [id number] History of Present illness Narrative* Hill ISABELLA Marquez - 11/24/2021 9:50 AM EDT Ortho Nurse - Established Patient Intake Room#: 2 4 month Right SHANNON D/A, about 10 days ago for no reason he started having radiating pain upto an 8, no pain when sitting, was doing fine before this Date: 11/24/2021 9:46 AM Patient: Tristin Powell Sr. MR#: [id number] : 1940 Age: 81 y.o. Referring Physician: [...] Laterality: N/A; Surgeon: Isaias Vogt MD; Location: [facility] CARDIAC CATH/EP LAB ATHERECTOMY PERIPHERAL N/A 08/09/2018 Laterality: N/A; Surgeon: Isaias Vogt MD; Location: [facility] CARDIAC CATH/EP LAB CORONARY STENT PLACEMENT [...] Date: 11/24/2021 9:46 AM Patient: Tristin Powell . MR#: [id number] : 1940 Age: 81 y.o. Referring Physician: Self, Self Insurance: Payor: MEDICARE HUMANA [employer] PPO / Plan: MEDICARE HU[employer]NA HMO PPO [...] has No Known Allergies. documented in this encounter[facility] + Plan note No data available for this section [facility] evaluation + Plan note Future Appointments Appointment Date:12/26/2023 01:00:00 PM Scheduled Provider:BRENNA MOSQUERA PA-C Location:[facility] Appointment Type:URO Office Visit Diagnostic Tests Pending * PSA Total 12/20/22 [facility] evalybcfto note* Diagnosis Bilateral carotid artery stenosis- Primary Occlusion and stenosis of carotid artery without mention of cerebral infarction PAD (peripheral artery disease) (HCC) Unspecified peripheral vascular disease [facility] Diagnosis PAD (peripheral artery disease) (HCC)- Primary Unspecified peripheral vascular disease [facility] Diagnosis Pain in prosthetic joint, subsequent encounter- Primary [facility] Diagnosis Actinic keratosis- Primary SK (seborrheic keratosis) Other seborrheic keratosis Inflamed seborrheic keratosis Skin tenderness Disturbance of skin sensation Xerosis cutis Other specified disease of sebaceous glands [facility] Diagnosis Hx of total hip arthroplasty, right- Primary [facility] Diagnosis Cellulitis- Primary Cellulitis and abscess [...] Hypertension, unspecified type [facility] assessment information [facility] Work Phone: Evaluation note* Diagnosis Bilateral carotid artery stenosis- Primary Occlusion and stenosis of carotid artery without mention of cerebral infarction [facility]* Diagnosis Hx of total hip arthroplasty, right- Primary [facility] Diagnosis Chronic obstructive pulmonary disease, unspecified COPD type (HCC) [facility]* Diagnosis Community acquired pneumonia of left [...] [facility]* Diagnosis Critical lower limb ischemia (HCC)- Primary Unspecified circulatory system disorder [facility]* Diagnosis Hx of total hip arthroplasty, right- Primary [facility] Diagnosis Phantom limb pain (CMS/HCC)- Primary [...] unspecified type- Primary [facility] [...] spondylosis without myelopathy [facility] Diagnosis Ischemic foot- Primary PAD (peripheral artery disease) (HCC) Unspecified peripheral vascular disease Critical lower limb ischemia (HCC) Unspecified circulatory system disorder Critical lower limb ischemia (HCC) Unspecified circulatory system disorder Coronary artery disease involving coronary bypass graft of eyak heart without angina pectoris Hypercholesteremia Pure hypercholesterolemia [...] peripheral vascular disease PVD (peripheral vascular disease) ([facility])- Primary Unspecified peripheral vascular disease [facility] Diagnosis Phantom limb pain [...] spondylosis without myelopathy [facility]* Diagnosis Community acquired pneumonia of left lung, unspecified part of lung- Primary COPD exacerbation (HCC) Obstructive chronic bronchitis with exacerbation documented in this encounter [employer] Phone: evaluation note* Diagnosis Community acquired pneumonia of left lung, unspecified part of lung- Primary COPD exacerbation (HCC) Obstructive chronic bronchitis with exacerbation documented in this encounter [employer] Phone: evaluation note* Diagnosis Phantom limb pain [...] Phantom limb (syndrome) documented in this encounter [facility]* Diagnosis Medicare annual wellness visit, subsequent- Primary ACP (advance care planning) Other specified counseling Primary insomnia Persistent disorder of initiating or maintaining sleep Neuropathy Mononeuritis of unspecified site Other chronic pain Paresthesia of skin Phantom limb pain (CMS/HCC) Phantom limb (syndrome) Polymyalgia rheumatica (CMS/HCC) Polymyalgia rheumatica Mild persistent asthmatic bronchitis without complication (CMS/HCC) Chronic bronchitis, unspecified chronic bronchitis type (CMS/HCC) Dyspnea on exertion Other dyspnea and respiratory abnormality Orthopnea Snoring Other dyspnea and respiratory abnormality Solitary pulmonary nodule Abdominal aortic aneurysm (AAA) without rupture, unspecified part (CMS/HCC) Aortic valve insufficiency, etiology of cardiac valve disease unspecified Atherosclerosis of eyak coronary artery of eyak heart without angina pectoris (CMS/HCC) Benign essential [...] amputation of left foot (CMS/HCC) 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, unspecified extremity (CMS/HCC) Pulmonary hypertension, unspecified (CMS/HCC) [facility] Diagnosis Chest pain in adult- Primary Lumbosacral spondylosis 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) Seasonal allergic rhinitis due to pollen documented in this encounter [facility]* Diagnosis Phantom limb pain (CMS/HCC)- [...] spondylosis without myelopathy documented in this encounter [facility]* Diagnosis Phantom limb pain (CMS/HCC)- [...] spondylosis without myelopathy documented in this encounter [facility]* Diagnosis Phantom limb pain (CMS/HCC)- [...] Chronic diastolic (congestive) heart failure 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, unspecified [...] disease (HCC) (CMS/HCC) documented in this encounter [facility]* Diagnosis Phantom limb pain (CMS/HCC)- [...] Chronic diastolic (congestive) heart failure 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, unspecified [...] spondylosis without myelopathy documented [facility] encounter [facility]* Diagnosis Phantom limb pain (CMS/HCC)- [...] Chronic diastolic (congestive) heart failure 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, unspecified [...] spondylosis without myelopathy documented in this encounter [facility]* Diagnosis Phantom limb pain (CMS/HCC)- [...] Chronic diastolic (congestive) heart failure 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, unspecified [...] sciatica, unspecified chronicity [facility]* Diagnosis Phantom limb pain (HCC)- [...] diastolic (congestive) heart failure (HCC) 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, unspecified [...] spondylosis without myelopathy [facility] Diagnosis Ischemic foot- Primary PAD (peripheral artery disease) (HCC) Unspecified peripheral vascular disease Critical lower limb ischemia (HCC) Unspecified circulatory system disorder Critical lower limb ischemia (HCC) Unspecified circulatory system disorder Coronary artery disease involving coronary bypass graft of eyak heart without angina pectoris Hypercholesteremia Pure hypercholesterolemia [...] peripheral vascular disease [facility] Diagnosis Ischemic foot- Primary PAD (peripheral artery disease) (HCC) Unspecified peripheral vascular disease Critical lower limb ischemia (HCC) Unspecified circulatory system disorder Critical lower limb ischemia (HCC) Unspecified circulatory system disorder Coronary artery disease involving coronary bypass graft of eyak heart without angina pectoris Hypercholesteremia Pure hypercholesterolemia [...] artery disease) (HCC) Unspecified peripheral vascular disease Acute pain of right lower extremity- Primary [facility] Diagnosis Ischemic foot- Primary PAD (peripheral [...] Peripheral artery disease PAD (peripheral artery disease) ([facility]) Unspecified peripheral vascular disease Carotid stenosis, asymptomatic, [...] artery disease involving coronary bypass graft of eyak heart without angina pectoris Critical lower limb ischemia (HCC) Unspecified circulatory system disorder Critical lower limb ischemia (HCC) Unspecified circulatory system disorder Coronary artery disease involving coronary bypass graft of eyak heart without angina pectoris Carotid stenosis, asymptomatic, bilateral [facility] Diagnosis Phantom limb pain (HCC)- Primary [...] Chronic obstructive pulmonary disease, unspecified COPD type ([facility]) Acute cystitis without hematuria- Primary Seasonal allergic [...] diastolic (congestive) heart failure (HCC) 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, unspecified [...] prostate Urinary hesitancy documented in [facility]* Diagnosis Ischemic foot- Primary PAD [...] artery disease involving coronary bypass graft of eyak heart without angina pectoris Critical lower limb ischemia (HCC) Unspecified circulatory system disorder Critical lower limb ischemia (HCC) Unspecified circulatory system disorder Coronary artery disease involving coronary bypass graft of eyak heart without angina pectoris Carotid stenosis, asymptomatic, bilateral Critical lower limb ischemia (HCC)- Primary Unspecified circulatory system disorder [facility]* Diagnosis Phantom limb pain (HCC)- Primary [...] diastolic (congestive) heart failure (HCC) 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, unspecified [...] layer exposed (HCC) documented in this encounter [facility]* Diagnosis Phantom limb pain (HCC)- [...] diastolic (congestive) heart failure (HCC) 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, unspecified [...] unspecified type (HCC) documented in this encounter [facility]* Diagnosis Phantom limb pain (HCC)- [...] diastolic (congestive) heart failure (HCC) 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, unspecified [...] Osteomyelitis of right foot, unspecified type (HCC) Nausea and vomiting, unspecified vomiting type- Primary [facility]* Diagnosis Ischemic foot- Primary PAD [...] artery disease involving coronary bypass graft of eyak heart without angina pectoris Critical lower limb ischemia (HCC) Unspecified circulatory system disorder Critical lower limb ischemia (HCC) Unspecified circulatory system disorder Coronary artery disease involving coronary bypass graft of eyak heart without angina pectoris Carotid stenosis, asymptomatic, bilateral Critical lower limb ischemia (HCC)- Primary Unspecified circulatory system disorder [facility]* Diagnosis Phantom limb pain (HCC)- Primary [...] diastolic (congestive) heart failure (HCC) 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, unspecified [...] Osteomyelitis of right foot, unspecified type (HCC) Acute non-recurrent sinusitis, unspecified location- Primary [facility]* Diagnosis Phantom limb pain (HCC)- [...] diastolic (congestive) heart failure (HCC) 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, unspecified [...] Osteomyelitis of right foot, unspecified type (HCC) Benign essential hypertension Essential hypertension, benign [facility] Narrative - Reported* Type Description Date Medical History PAD Medical History hypertension Medical History This 82-year-old irina e has a long history of peripheral vascular occlusive disease but has never been seen by us in the past. In 2019 he presented with limb threatening ischemia of his left leg and was initially treated in [place]. When he was offered left above-knee amputation he got a second opinion in [place] and had a bypass on his left [...] LEFT METARSAL AMPUTATION Hospitalization History See Above [employer] Other Hospital Discharge instructions No data available for this section [facility] Hospital Discharge instructions* Attachments The following attachments cannot be sent through Care Everywhere. * Pneumonia (American) documented in [facility] Work Phone: Hospital Discharge instructions* Attachments The following attachments cannot be sent through Care Everywhere. * Pneumonia (American) documented in this encounterWSynGenD[facility] Work Phone: Hospital Discharge instructions Additional Instructions [...] 24 hours. CALL [name at #] OR [facility] [place] [phone]: -If excessive bleeding should occur from the [...] Metformin, PrandiMet, Riomet.] FOLLOW UP/OTHER INSTRUCTIONS [ ][facility] Work Phone: Progress note No data available for this section [facility] reason for referral (narrative)No reason for referral information availableLouis [facility] Work Phone: Summary Purpose Family History Relationship [...] Documents on File Type Date Recorded Patient Director Motion Picture Expl anation Advance Directives and Living Will 03/18/2019 9:27 AM LW only Power of Student Services Representative 10/13/2018 9:03 PM RECEI SKIP 10/13/2018 Documents on File Type Date Recorded Patient Director Motion Picture Expl anation Advance Directives and Living Will 03/18/2019 9:27 AM LW only Power of Student Services Representative 10/13/2018 9:03 PM RECEI SKIP 10/13/2018 Documents on File Type Date Recorded Patient Director Motion Picture Expl anation Advance Directives and Living Will 10/21/2019 1:25 PM LW only Power of Student Services Representative 10/13/2018 9:03 PM RECEI SKIP 10/13/2018 Documents on File Type Date Recorded Patient Director Motion Picture Expl anation Advance Directives and Living Will 10/21/2019 1:25 PM LW only Power of Student Services Representative 10/13/2018 9:03 PM RECEI SKIP 10/13/2018 Documents on File Type Date Recorded Patient Director Motion Picture Expl anation Advance Directives and Living Will 03/13/2019 10:08 AM LW only Power of Student Services Representative 10/13/2018 9:03 PM RECEI SKIP 10/13/2018 Documents on File Type Date Recorded Patient Director Motion Picture Expl anation Advance Directives and Living Will 03/13/2019 10:08 AM LW only Power of Student Services Representative 10/13/2018 9:03 PM RECEI SKIP 10/13/2018 Latest Code Status on File Code Status Date Activated Date Inactivated Comments Full Code 07/15/2021 2:40 PM Full Code 09/03/2018 11:29 AM 07/15/2021 2:40 PM Full Code 09/01/2011 7:48 AM 09/04/2011 4:13 PM Documents on File Type Date Recorded Patient Director Motion Picture Expl anation Power of Student Services Representative 10/13/2018 9:03 PM RECEI SKIP 10/13/2018 Documents on File Type Date Recorded Patient Director Motion Picture Expl anation Power of Student Services Representative 10/13/2018 9:03 PM RECEI SKIP 10/13/2018 Latest [...] Procedures Referred By Contact Referred To Contact [facility] Diagnoses Ischemic foot Critical lower limb ischemia Rojelio Woody MD [address] [place], [place] [address] [address] [place] [address] Status Reason Specialty Diagnoses / Procedures Referred By Contact Referred To Contact Pending Review Cardiology Diagnoses 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) S/P bypass graft of extremity Procedures US Doppler ankle/brachial index Segmental doppler lower extremity arterial Mohsen Sarabia MD [address] [place], [place] [address] [address] [place] [address] Status Reason Specialty Diagnoses / Procedures Referred By Contact Referred To Contact Pending Review Cardiology Diagnoses Bilateral carotid artery stenosis Procedures Carotid Duplex Mohsen Sarabia MD [address] [place] [address] [place] [address] Status Reason Specialty Diagnoses / Procedures Referred By Contact Referred To Contact Pending Review Cardiology Diagnoses 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) S/P bypass graft of extremity Procedures Ultrasound ankle / brachial indices extremity complete Mohsen Sarabia MD [address] [place] [address] [place] [address] Status Reason Specialty Diagnoses / Procedures Referre d By Contact Referred To Contact Closed Radiology Diagnoses S/P bypass graft of extremity PAD (peripheral artery disease) (HCC) 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) Procedures CT Angiogram Abdominal Aorta With Lower Extremity Mohsen Sarabia MD [address] [place] [address] [place] [address] Status Reason Specialty Diagnoses / Procedures Referred By Contact Referred To Contact Closed Cardiology Diagnoses Bilateral carotid artery stenosis Procedures Carotid Duplex Mohsen Sarabia MD [address] [place] [address] [place] [address] Status Reason Specialty Diagnoses / Procedures Referre d By Contact Referred To Contact Closed Cardiology Diagnoses 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) Procedures Ultrasound ankle / brachial indices extremity complete Mohsen Sarabia MD [address] [place] [address] [address] [place] [address] Status Reason Specialty Diagnoses / Procedures Referred By Contact Referred To Contact Pending Review Cardiology Diagnoses Atherosclerosis of eyak artery of left lower extremity with rest pain (HCC) S/P bypass graft of extremity Procedures Ultrasound duplex arterial leg left Mohsen Sarabia MD [address] [place] [address] [address] [place] [address] Status Reason Specialty Diagnoses / Procedures Referred By Contact Referred To Contact Authorized Cardiology Diagnoses Bilateral carotid artery stenosis Procedures Carotid Duplex Mohsen Sarabia MD [address] [place] [address] [place] [address] Status Reason Specialty Diagnoses / Procedures Referred By Contact Referred To Contact Authorized Cardiology Diagnoses PAD (peripheral artery disease) (HCC) Procedures Ultrasound ankle / brachial indices extremity complete Mohsen Sarabia MD [address] [place] [address] [address] [place] [address] Status Reason Specialty Diagnoses / Procedures Referred By Contact Referred To Contact Authorized Cardiology Diagnoses PAD (peripheral artery disease) ([facility]) Procedures Ultrasound duplex arterial leg left Mohsen Sarabia MD [address] [place] [address] [address] [place] [address] Specialty Diagnoses / Procedures Referred By Contac t Referred To Contact Physical Therapy Diagnoses Pain in prosthetic joint, subsequent encounter Dashawn Silvestre MD [address] [place] [address] [facility] [address] [address] Referral ID Status Reason Start Date Expiration Date V isits Requested Visits Authorized [id number] New Request 11/24/2021 12/19/2022 1 1 Specialty Diagnoses / Procedures Referred By Contac t Referred To Contact Diagnoses Pain in prosthetic joint, subsequent encounter Procedures XR HIP WITH PELVIS RIGHT Dashawn Silvestre MD [address] [place] [id number] Referral ID Status Reason Start Date Expiration Date V isits Requested Visits Authorized [id number] New Request 11/19/2021 12/14/2022 1 1 Specialty Diagnoses / Procedures Referred By Contac t Referred To Contact Diagnoses Hx of total hip arthroplasty, right Procedures XR HIP WITH PELVIS RIGHT Dashawn Silvestre MD [address] [place] [address] Referral ID Status Reason Start Date Expiration Date V isits Requested Visits Authorized [id number] New Request 01/05/2022 01/30/2023 1 1 Specialty Diagnoses / Procedures Referred By Contac t Referred To Contact Pulmonary Disease / Pulmonology Diagnoses Pulmonary nodule Muna Otto MD [address] [facility] [address] [place] [address] Carson Gallagher MD [address] [place] [address] Referral ID Status Reason Start Date Expiration Date Visits Requested Visits Authorized [id number] Pending Review Specialty Services Required/Pat ient's Best Interest 01/20/2022 01/20/2023 1 1 Specialty Diagnoses / Procedures Referred By Contac t Referred To Contact Radiology Diagnoses Pulmonary nodule Procedures CT Chest Without Contrast Wagner Moon MD [address] [place] [id number] Referral ID Status Reason Start Date Expiration Date V isits Requested Visits Authorized [id number] New Request 05/11/2022 05/11/2023 1 1 Specialty Diagnoses / Procedures Referred By Contac t Referred To Contact Cardiology Diagnoses Bilateral carotid artery stenosis Procedures Carotid Duplex Mohsen Sarabia MD [address] [facility] [address] [place] [address] Referral ID Status Reason Start Date Expiration Date V isits Requested Visits Authorized [id number] Authorized 05/25/2022 05/25/2023 1 1 Specialty Diagnoses / Procedures Referred By Contac t Referred To Contact Diagnoses Hx of total hip arthroplasty, right Procedures XR HIP WITH PELVIS RIGHT Scar Ortega, [employer]PART[employer] MECH[employer]IC [address] [place] [address] Referral ID Status Reason Start Date Expiration Date V isits Requested Visits Authorized [id number] New Request 07/06/2022 07/31/2023 1 1 Specialty Diagnoses / Procedures Referred By Contac t Referred To Contact Radiology Diagnoses Community acquired pneumonia of left lower lobe of lung Procedures CT Chest Without Contrast Jose Escalona, KAMARI [address] [place] [address] Referral ID Status Reason Start Date Expiration Date V isits Requested Visits Authorized [id number] New Request 11/08/2022 11/08/2023 1 1 Specialty Diagnoses / Procedures Referred By Contac t Referred To Contact Cardiology Diagnoses PAD (peripheral artery disease) (HCC) Procedures US Duplex Bypass Graft Left LE Mohsen Sarabia MD [address] [place] [address] Referral ID Status Reason Start Date Expiration Date V isits Requested Visits Authorized [id number] Authorized 05/16/2023 05/15/2024 1 1 Specialty Diagnoses / Procedures Referred By Contac t Referred To Contact Cardiology Diagnoses PAD (peripheral artery disease) (HCC) Procedures Ultrasound ankle / brachial indices extremity complete Mohsen Sarabia MD [address] [place] [address] Referral ID Status Reason Start Date Expiration Date V isits Requested Visits Authorized [id number] Authorized 05/16/2023 05/15/2024 1 1 Referral ID Status Reason Start Date Expiration Date V isits Requested Visits Authorized [id number] New Request 08/01/2023 08/25/2024 1 1 Specialty Diagnoses / Procedures Referred By Jason christie Referred To Contact Diagnoses Seasonal allergic rhinitis due to pollen Zoë King, LEONARDA [address] [address] Referral ID Status Reason Start Date Expiration Date V isits Requested Visits Authorized [id number] Pending Review 05/21/2024 11/17/2024 1 1 Hospital Course Note CLINICAL SUMMARY Please take this summary document to your follow up appointments. [facility] 11/29/19 11:09 [address] [place]. [address] PATIENT INFORMATION Name: TRISTIN POWELL Hortensia Address: [address] [address] Age: 79 Years Phone: [phone] : 1940 12:[birth year] MRN: [id number] Sex: Male Race: White Ethnicity: Not Hispan/Lat Admitted From: Clinic or [facility] Medical Service: Orthopedic Surgery Nurse Unit/Bed: (CO) 2N 0208-01 Admit Date: 11/28/2019 05:01 PCP: Flash Lovelace MD PHYSICIANS INVOLVED WITH CARE Attending Physicians: Ramana Cason MD - Orthopaedic Surg Admitting Physician: Ramana Cason MD - Orthopaedic Surg Primary Care Physician:Flash Lovelace MD,[facility] [facility], - Consults: [place] - Internal [...] every 2 days and PRN * Discharge Instr - IP PHARMACY* Lydia Davis CPhT - 09/04/2018 9:16 [...] your doctor if you can take an [id number]-[id number] medicine. If you think your pain medicine [...] Log into your personal health record on [email or web address] and enter H742 in the Education box to learn more about Femoral-Tibial Bypass Surgery: What to Expect at Home. Current as of: March 18, 2018 Content Version: 11.9 6259-8652 [employer]. Care instructions adapted under license by your healthcare professional. If you have questions about a medical condition or this instruction, always ask your healthcare professional. [employer], [employer] disclaims any warranty or liability for your use of this information. * Attachments The following attachments cannot be sent through Care Everywhere. * Angiogram: General: Post-op (American) in this encounter* Discharge Instr - Other Orders* Kristi Grossman RN - 10/12/2018 6:09 PM EST Printed MAR sent to facility to show last admin times for lovenox and percocet. * Discharge Instr - Care Coordination* Rubi Dominguez LSW - 10/05/2018 6:46 AM EST [facility] [place] P: [phone] F: [phone] * Additional Instructions* Gilbert Guerra DPM - [...] drive, operate heavy machinery, ride motorcycles or ATBoxee s, drink alcohol, or take other medication [...] through Care Everywhere. * Foot: Amputation: Post-op (American) in this encounter History of Present Illness * Esau Alejandro MD - 09/13/2018 9:03 AM EST VASCULAR SURGERY PROGRESS NOTE 09/13/18 Patient Name: Tristin Powell : 1940 MR #: [id number] Admit Date: 1070905 Assessment and Plan: Tristin Powell is a 78 y.o. male with a PMH of PVD s/p LLE angio with stent placement 08/09, prostatecancer, PVD, CAD, HTN and a PSH of L ankle ORIF and thriple CABG in october 2016 with L saphenous vein harvested who presented to [facility] 09/04/2018 as a transfer from [place] for second opinion regarding left lower extremity [...] for d/c today - Discussed with Dr. Sarabia Subjective [facility]. Having persistent foot pain Physical Examination: Vital [...] Final Result Stable chest. No acute disease. [facility] Workstation ID: [id number] Saphenous vein mapping, limited Final Result Cardiac Catheterization Final Result Ultrasound duplex arterial leg left Final Result XR Comparison Import Final Result Us Doppler Ankle/brachial Index Result Date: 09/10/2018 Non-Invasive Vascular Patient: SHERRY Bazan [facility] Rec#: [id number] (Age): 1940(78y) Study Date: 09/10/2018 Room#: 8506 Type: Inpatient Sex: M Reading: [place] Reading: Ben Hahn MD, RPVI Referring: Esau Alejandro her: Andre Madrid RDCS/RVT Procedure Info: [id number] Study Quality: Lower Arterial Doppler: adequate __ [...] Esau Alejandro MD General Surgery PGY-1 Pager [phone] *After 5pm, or on weekends, page [phone]* * Rojelio Woody MD - 09/13/2018 8:52 AM EST [facility] Inpatient Progress Note 09/13/2018 Tristin Powell 1940 [id number] Assessment/Plan: Tristin Powell is a 78 y.o. male with a history of PVD s/p LLE angio with stent placement 08/09, prostate cancer, PVD, CAD, HTN who presented to [facility] 09/04/2018 as a transfer from [place] for second opinion regarding left lower extremity pain and discoloration that was present two days prior to admit there on 08/30/18. On admit his exam was notable for cool mottled left foot. He was admitted for further work up. 1. Critical LLE Ischemia: Underwent LLE Popliteal stent 08/09/18 in [place], discharged on ASA and xarelto. Returned with [...] Oral Daily gabapentin 400 mg Oral Q8H [facility] heparin (porcine) 5,000 Units Subcutaneous Q8H [facility] metoprolol succinate 50 mg Oral Daily naloxegol [...] 0738 INR 1.2* 1.2* 1.2* * Jagruti Mooney PTA - 09/12/2018 1:57 PM EST Physical Therapy [...] Stand Pivot Transfers: Mod, Two person assist Director Inbound Sales: Wheeled walker, 2 people, Gait belt Skilled [...] medications Prior Level of Function Level of [place]: Independent with ADLs and functional transfers, Independent with homemaking with ambulation Lives With: Alone 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) Comments: planning to provide 24/ assist from 7 kids For complete objective [...] - 09/12/2018 1:41 PM EST Progress Note: [facility] PAIN SERVICE Date: 09/12/2018 Patient name: Tristin [...] needed -Please call with questions -Presented to [facility] 09/04/2018 as a transfer from [place] for second opinion regarding left lower extremity [...] on hospital day 8 as transfer from [place] for second opinion for LLE pain and [...] artery disease involving coronary bypass graft of eyak heart without angina pectoris ARTERIOSCLEROSIS OF CORONARY [...] No Discharge Readiness Expected Discharge Date: 09/13/18 [facility] Disposition D/C Disposition: Home Health Care Services Related to Current Admission?: Yes Agency/Destination[facility] Needs : Home health care Met with pt's dtr to discuss dschg plan. They wish to have referral sent to [facility]. Sent order for [facility]HCfor RN, PT, OT. Sent referral to [facility]. Notified [facility] of referral. Updated AVS. * Rojelio Woody MD - 09/12/2018 11:37 AM EST [facility] Inpatient Progress Note 09/12/2018 Tristin Powell 1940 [id number] Assessment/Plan: Tristin Powell is a 78 y.o. male with a history of PVD s/p LLE angio with stent placement 08/09, prostate cancer, PVD, CAD, HTN who presented to [facility] 09/04/2018 as a transfer from [place] for second opinion regarding left lower extremity pain and discoloration that was present two days prior to admit there on 08/30/18. On admit his exam was notable for cool mottled left foot. He was admitted for further work up. 1. Critical LLE Ischemia: Underwent LLE Popliteal stent 08/09/18 in [place], discharged on ASA and xarelto. Returned with [...] last 7 days Lab Units 09/11/18 2331 09/11/18 0738 09/10/18200609/10/18 0610 WBC K/mcL -- 7.28 7.13 [...] Units 09/11/18 0738 09/10/18 0610 09/09/18 0746 INR 1.2* 1.2* 1.2* * Vivi [...] Estimated Energy Needs Total Energy Estimated Needs: 0849-2508 kcal Method for Estimating Needs: MSJ + 20% Total Protein Estimated Needs: 88-106 g Method for Estimating Needs: 1-1.2 g/kg IBW (BMI 24.9) * Esau Alejandro MD - 09/12/2018 9:17 AM EST VASCULAR SURGERY PROGRESS NOTE 09/12/18 Patient Name: Tristin Powell : 1940 MR #: [id number] Admit Date: 1070905 Assessment and Plan: Tristin Powell is a 78 y.o. male with a PMH of PVD s/p LLE angio with stent placement 08/09, prostatecancer, PVD, CAD, HTN and a PSH of L ankle ORIF and thriple CABG in october 2016 with L saphenous vein harvested who presented to [facility] 09/04/2018 as a transfer from [place] for second opinion regarding left lower extremity [...] for d/c today - Discussed with Dr. Monty DAVID. Having persistent foot pain Physical Examination: [...] Final Result Stable chest. No acute disease. [facility] Workstation ID: [id number] Saphenous vein mapping, limited Final Result Cardiac Catheterization Final Result Ultrasound duplex arterial leg left Final Result XR Comparison Import Final Result Us Doppler Ankle/brachial Index Result Date: 09/10/2018 Non-Invasive Vascular Patient: SHERRY Bazan [facility] Rec#: [id number] (Age): 1940(78y) Study Date: 09/10/2018 Room#: 8506 Type: Inpatient Sex: M Reading: [place] Reading: Ben Hahn MD, RPVI Referring: Esau Alejandro her: Andre Madrid RDCS/INOCENCIO Procedure Info: [id number] Study Quality: Lower Arterial Doppler: adequate __ [...] at 09/10/2018 17:30:46 by: Ben Hahn MD, VI Esau Alejandro MD General Surgery PGY-1 Pager [phone] *After 5pm, or on weekends, page [phone]* * Maranda Meléndez, KAMARI - 09/11/2018 3:45 PM EST Progress Note: [facility] PAIN SERVICE Date: 09/11/2018 Patient name: Tristin [...] needed -Please call with questions -Presented to [facility] 09/04/2018 as a transfer from [place] for second opinion regarding left lower extremity [...] on hospital day 7 as transfer from [place] for second opinion for LLE pain and [...] artery disease involving coronary bypass graft of eyak heart without angina pectoris ARTERIOSCLEROSIS OF CORONARY [...] 3 completed shifts: In: 400 [P.O.:400] Out: 1925 [Urine:1925] Results/Medications Reviewed 09/11/18 4:53 PM: Laboratory, Microbiology, [...] Woody MD - 09/11/2018 1:53 PM EST [facility]2018 Tristin Powell 1940 [id number] Assessment/Plan: Tristin Powell is a 78 y.o. male with a history of PVD s/p LLE angio with stent placement 08/09, prostate cancer, PVD, CAD, HTN who presented to [facility] 09/04/2018 as a transfer from [place] for second opinion regarding left lower extremity pain and discoloration that was present two days prior to admit there on 08/30/18. On admit his exam was notable for cool mottled left foot. He was admitted for further work up. Labs prior to transfer notable for Cr 0.7. 1. Critical LLE Ischemia: s/p LLE angiogram 08/09/18 with popliteal balooning and stent in [place], Discharged on ASA and xarelto. Returned to the [facility] with worsening pain and discoloration of his [...] Results from last 7 days Lab Units 09/11/1873709/10/18200609/10/18609 WBC K/mcL 7.28 7.13 7.34 HGB g/dL 8.1* 7.6* 7.5* HCT % 24.4* 22.2* 22.0* PLT K/mcL 249 246 234 Results from last 7 days Lab Units 09/11/18 0709/10/1860909/09/18 0746 SODIUM mmol/L 131* 134* 135 POTASSIUM mmol/L 4.8 4.6 4.3 CHLORIDE mmol/L 95* 99 99 BICARB mmol/L 26 27 28 BUN mg/dL 11 12 13 CREATININE mg/dL 0.65* 0.67* 0.71* EGFR mL/min/1.73 m2 93 91 89 GLUCOSE mg/dL 114* 116* 111* CALCIUM mg/dL 8.9 8.9 8.9 Results from last 7 days Lab Units 09/11/18 0738 09/10/1860909/09/18 0746 INR 1.2* 1.2* 1.2* * Esau Alejandro MD - 09/11/2018 10:38 AM EST VASCULAR SURGERY PROGRESS NOTE 09/11/18 Patient Name: Tristin Powell : 1940 MR #: [id number] Admit Date: 1070905 Assessment and Plan: Tristin Powell is a 78 y.o. male with a PMH of PVD s/p LLE angio with stent placement 08/09, prostatecancer, PVD, CAD, HTN and a PSH of L ankle ORIF and thriple CABG in october 2016 with L saphenous vein harvested who presented to [facility] 09/04/2018 as a transfer from [place] for second opinion regarding left lower extremity pain and discoloration Chronic LLE ischemia S/p peroneal femoral bypass 09/07/18 - Regular diet - Rooke boot LLE - ET following, adaptik and gauze EOD - Podiatry following, betadine paint while waitin for demarcation. - Pain and N control - PT/OT, recommending SNF - Consult placed to case management - Discussed with Dr. Sarabia Subjective NAEO. No new complaints Physical Examination: [...] Final Result Stable chest. No acute disease. [facility] Workstation ID: [id number] Saphenous vein mapping, limited Final Result Cardiac Catheterization Final Result Ultrasound duplex arterial leg left Final Result XR Comparison Import Final Result Us Doppler Ankle/brachial Index Result Date: 09/10/2018 Non-Invasive Vascular Patient: SHERRY Bazan [facility] Rec#: [id number] (Age): 1940(78y) Study Date: 09/10/2018 Room#: 8506 Type: Inpatient Sex: M Reading: [place] Reading: Ben Hahn MD, RPVI Referring: Esau lAejandro her: Andre Madrid RDCS/RVT Procedure Info: [id number] Study Quality: Lower Arterial Doppler: adequate __ [...] Esau Alejandro MD General Surgery PGY-1 Pager [phone] *After 5pm, or on weekends, page [phone]* Associated attestation - Mohsen Sarabia MD - 09/11/2018 5:05 PM EST Patient seen and examined. I have personally reviewed all pertinent labs, radiological studies and records. I have personally examined the patient and agree with resident/SHRUB GROWER/PA assessment and plan. * Flynn Mann, SHIRLEY - 09/11/2018 8:09 AM EST Patient Name: Tristin Powell MR #: [id number] : 1940 Physicians: Flash Lovelace MD (Family); [...] PLT 246 09/10/2018 No results found for: [id number] results found for: SEDRATE No results found [...] artery disease involving coronary bypass graft of eyak heart without angina pectoris ARTERIOSCLEROSIS OF CORONARY [...] Center with Dr. Mann at [phone] [facility]. Case discussed with Dr. Sarabia. Consider home going antibiotics for coverage of any residual cellulitis. Clinical area of warmth and erythema could be due to reperfusion, but cannot rule out of residual cellulitis as well. Flynn Mann DPM, FACFAS Electronically signed by the above physician 09/11/18 * Ronnie Warren MD - 09/10/2018 12:04 PM EST Progress Note: [facility] PAIN SERVICE Date: 09/10/2018 Patient name: Tristin [...] needed -Please call with questions -Presented to [facility] 09/04/2018 as a transfer from [place] for second opinion regarding left lower extremity [...] on hospital day 6 as transfer from [place] for second opinion for LLE pain and discoloration. S/p LLE angio with stent placement 08/09/18. HPI: Patient lying in bed appears comfortable. States pain much better controlled today. Notes increased movement in legs today. Denies side effects/sedation from current regimen. Chief Complaint: SNOMED CT(R) 1. Ischemic foot ISCHEMIC FOOT 2. PAD (peripheral artery disease) ([facility]) PERIPHERAL VASCULAR DISEASE Patient Active Problem List Diagnosis SNOMED CT(R) Critical lower limb ischemia CRITICAL LOWER LIMB ISCHEMIA Coronary artery disease involving coronary bypass graft of eyak heart without angina pectoris ARTERIOSCLEROSIS OF CORONARY [...] EST WOC/ET RN consult/evaluation note: Evaluated Tristin Bazan Sherry for wound located on left foot. Description [...] Name: Tristin Powell : 1940 MR #: [id number] Admit Date: 1070905 Assessment and Plan: Tristin Powell is a 78 y.o. male with a PMH of PVD s/p LLE angio with stent placement 08/09, prostatecancer, PVD, CAD, HTN and a PSH of L ankle ORIF and thriple CABG in october 2016 with L saphenous vein harvested who presented to [facility] 09/04/2018 as a transfer from [place] for second opinion regarding left lower extremity pain and discoloration Chronic LLE ischemia S/p peroneal femoral bypass 09/07/18 - Regular diet - Rooke boot LLE - ET consult for skin blistering - Pain and N control - PT/OT, OOB, Encourage IS - D/C kiera today - Discussed with Dr. Monty RIBEIRO. No new complaints Physical Examination: Vital Signs: [...] Final Result Stable chest. No acute disease. [facility] Workstation ID: [id number] Saphenous vein mapping, [...] Esau Alejandro MD General Surgery PGY-1 Pager [phone] *After 5pm, or on weekends, page [phone]* * Vianca Franco DO - 09/10/2018 7:57 AM EST [facility]10[facility]2018 Tristin Powell 1940 [id number] Assessment/Plan: Tristin Hortensia Sherry is a 78 y.o. male with a history of PVD s/p LLE angio with stent placement 08/09, prostate cancer, PVD, CAD, HTN who presented to [facility] 09/04/2018 as a transfer from [place] for second opinion regarding left lower extremity pain and discoloration that was present two days prior to admit there on 08/30/18. On admit his exam was notable for cool mottled left foot. He was admitted for further work up. Labs prior to transfer notable for Cr 0.7. 1. Critical LLE Ischemia: s/p LLE angiogram 08/09/18 with popliteal balooning and stent in [place], Discharged on ASA and xarelto. Returned to the [facility] with worsening pain and discoloration of his [...] 09/08/18 0259 INR 1.2* 1.2* 1.2* * Franco, Vianca Fernandez DO - 09/09/2018 9:18 AM EST [facility] Inpatient Progress Note 09/09/2018 Tristin Powell 1940 [id number] Assessment/Plan: Tristin Powell is a 78 y.o. male with a history of PVD s/p LLE angio with stent placement 08/09, prostate cancer, PVD, CAD, HTN who presented to [facility] 09/04/2018 as a transfer from [place] for second opinion regarding left lower extremity pain and discoloration that was present two days prior to admit there on 08/30/18. On admit his exam was notable for cool mottled left foot. He was admitted for further work up. Labs prior to transfer notable for Cr 0.7. 1. Critical LLE Ischemia: s/p LLE angiogram 08/09/18 with popliteal balooning and stent in [place], Discharged on ASA and xarelto. Returned to the [facility] with worsening pain and discoloration of his [...] Name: Tristin Powell : 1940 MR #: [id number] Admit Date: 1070905 Assessment and Plan: Tristin Powell is a 78 y.o. male with a PMH of PVD s/p LLE angio with stent placement 08/09, prostatecancer, PVD, CAD, HTN and a PSH of L ankle ORIF and thriple CABG in october 2016 with L saphenous vein harvested who presented to [facility] 09/04/2018 as a transfer from [place] for second opinion regarding left lower extremity pain and discoloration Chronic LLE ischemia S/p peroneal femoral bypass 09/07/18 - 2 Days Post-Op - Regular diet - Rooke boot LLE - ET consult for skin blistering - Pain and N control - PT/OT, OOB, Encourage IS - Discussed with Dr. Monty Hair [facility]. No new complaints Physical Examination: Vital Signs: [...] Final Result Stable chest. No acute disease. [employer] Workstation ID: [id number] Saphenous vein mapping, limited Final Result Cardiac Catheterization Final Result Ultrasound duplex arterial leg left Final Result XR Comparison Import Final Result Xr Chest 1 View Result Date: 09/07/2018 EXAMINATION: AP CHEST HISTORY: Hypoxia. COMPARISON: 08/01/2018 from [facility]. 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 Coronary artery stents are visualized. Minimal linear scarring at the lung bases, unchanged. No pneumothorax. No definite pleural ef fusion no new opacities. Stable chest. No acute disease. [employer] Workstation ID: [id number] Xr Fluoroscopy Time Result Date: 09/08/2018 This is an auto finalized result. Please refer to patient chart for further information. Saphenous Vein Mapping, Limited Result Date: 09/06/2018 Non-Invasive Vascular Patient: SHERRY Bazan [facility] Rec#: [id number] (Age): 1940(78y) Study Date: 09/06/2018 Room#: 3386 Type: Inpatient Sex: M Reading: Manuel Leonard MD, RPVI, RVT Referring: ARISTEO Binder Technician: Tom Jeffers RDCS, RVT Procedure Info: [id number] Study Quality: Lower Vein Map: limited Study [...] further information. Miryam Rincon MD PGY-2 Surgery [phone] After 5pm and on Weekends, please page [phone] (Surgery Drapery And Upholstery Estimator railroad construction director) * Joi Vaughan, RN - 09/08/2018 10:53 [...] and pressure offlaoding for now. * Vianca Franco DO - 09/08/2018 9:38 AM EST [facility] Inpatient Progress Note 09/08/2018 Tristin Powell 1940 [id number] Assessment/Plan: Tristin Powell is a 78 y.o. male with a history of PVD s/p LLE angio with stent placement 08/09, prostate cancer, PVD, CAD, HTN who presented to [facility] 09/04/2018 as a transfer from [place] for second opinion regarding left lower extremity pain and discoloration that was present two days prior to admit there on 08/30/18. On admit his exam was notable for cool mottled left foot. He was admitted for further work up. Labs prior to transfer notable for Cr 0.7. 1. Critical LLE Ischemia: s/p LLE angiogram 08/09/18 with popliteal balooning and stent in [place], Discharged on ASA and xarelto. Returned to the [facility] with worsening pain and discoloration of his [...] Oral Daily gabapentin 400 mg Oral Q8H [facility] metoprolol succinate 50 mg Oral Daily polyethylene glycol 17 g Oral Daily Labs, Imaging and Studies reviewed: Results from last 7 days Lab Units 09/08/18 02509/07/18 0758 09/06/18 1834 WBC K/mcL 11.23* 5.93 6.34 HGB g/dL 10.0* 10.8* 10.4* HCT % 29.9* 31.6* 30.7* PLT K/mcL 209 212 209 Results from last 7 days Lab Units 09/08/18 0259 09/07/18 0758 09/06/18 0545 SODIUM mmol/L 133* 135 137 POTASSIUM mmol/L 4.5 4.0 4.2 CHLORIDE mmol/L 99 99 101 BICARB mmol/L 23 25 27 BUN mg/dL 8 9 9 CREATININE mg/dL 0.56* 0.69* 0.68* EGFR mL/min/1.73 m2 98 90 91 GLUCOSE mg/dL 189* 110* 98 CALCIUM mg/dL 9.0 9.4 9.5 Results from last 7 days Lab Units 09/08/18 0259 09/07/18 0758 INR 1.2* 1.2* * Esau Alejandro MD - 09/08/2018 9:37 AM EST VASCULAR SURGERY PROGRESS NOTE 09/08/18 Patient Name: Tristni Powell : 1940 MR #: [id number] Admit Date: 1070905 Assessment and Plan: Tristin Powell is a 78 y.o. male with a PMH of PVD s/p LLE angio with stent placement 08/09, prostatecancer, PVD, CAD, HTN and a PSH of L ankle ORIF and thriple CABG in october 2016 with L saphenous vein harvested who presented to [facility] 09/04/2018 as a transfer from [place] for second opinion regarding left lower extremity pain and discoloration Chronic LLE ischemia S/p peroneal femoral bypass 09/07/18 - Patient underwent LLE angiogram with popliteal ballooning and stent 08/09/2018 in [place], sent onaspirin and xarelto - Angiography 09/05/18 showed Infrapopliteal Artery Stenosis Left , severe ASPVD with occluded stent.No reasonable endovascular options. - Diet as tolerated, HLIV - Rooke boot LLE - ET consult for skin blistering - Pain and N control - Continue P/O care - Discussed with Dr. Sarabia Subjective MICHELLEEO Physical Examination: Vital Signs: BP 133/62 (BP [...] Final Result Stable chest. No acute disease. [facility] Workstation ID: [id number] Saphenous vein mapping, limited Final Result Cardiac Catheterization Final Result Ultrasound duplex arterial leg left Final Result XR Comparison Import Final Result Cardiac Catheterization Result Date: 09/05/2018 Patient Name: TRISTIN POWELL Date of : 1940 Procedure Date: 09/05/2018 Physician(s): Ben Hahn MD Cath #: [id number] Ref. 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 Dyslipidemia: Yes Hypertension: Yes Pre-OP Diagnosis/Indication: [place] Class/Limb Ischemia: 4 - Ischemic rest pain [...] amputation COMMENTS: No Complications ____ Equipment: Sheath(s) [employer] 5F 10CM PINNACLE SHEATH TIME PLUS Q 6F 45CM .038 FLEXOR CHECKFLO ANSEL1 SHEATH Wire(s) [employer] .035 X 150CM FIXED J WIRE Catheter(s) [employer] day Blind[employer] 5F MP TEMPO AQUA CATHETER Other TIME PLUS Q .035 CXI ANGLED SUPPORT CATHETERS SHER VASCULAR [...] AP CHEST HISTORY: Hypoxia. COMPARISON: 08/01/2018 from [facility]. 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 Coronary artery stents are visualized. Minimal linear scarring at the lung bases, unchanged. No pneumothorax. No definite pleural ef fusion no new opacities. Stable chest. No acute disease. [facility] Workstation ID: [id number] Xr Fluoroscopy Time Result Date: 09/08/2018 This is an auto finalized result. Please refer to patient chart for further information. Saphenous Vein Mapping, Limited Result Date: 09/06/2018 Non-Invasive Vascular Patient: SHERRY Bazan Med Rec#: [id number] (Age): 1940(78y) Study Date: 09/06/2018 Room#: 3386 Type: Inpatient Sex: M Reading: Manuel Leonard MD, RPVI, RVT Referring: ARISTEO Binder Technician: Tom Jeffers RDCS, RVT Procedure Info: [id number] Study Quality: Lower Vein Map: limited Study [...] Esau Alejandro MD General Surgery PGY-1 Pager [phone] *After 5pm, or on weekends, [phone]* * Sirisha Doshi, RD - 09/07/2018 2:26 [...] Estimated Energy Needs Total Energy Estimated Needs: 3394-9798 kcal Method for Estimating Needs: MSJ + 20% Total Protein Estimated Needs: 88-106 g Method for Estimating Needs: 1-1.2 g/kg IBW (BMI 24.9) Assessed By: Sirisha Doshi RD, LD * Maranda Meléndez, NEON SIGN MECHANIC - 09/07/2018 1:15 PM EST Progress Note: [facility] Date: 09/07/2018 Patient name: Tristin Powell Date Of : 1940 Assessment/Plan: Pain of left lower extremity Assessment & Plan -Presented to [facility] 09/04/2018 as a transfer from [place] for second opinion regarding left lower extremity [...] in pain -Reports pain is uncontrolled with CLAY GRINDER Dilaudid pump, and pain does not decrease [...] on hospital day 3 as transfer from [place] for second opinion for LLE pain and discoloration. S/p LLE angio with stent placement 08/09/18. HPI: Patient found writhing in bed, holding his left leg; family members at bedside. He is alert and oriented, and appears extremely uncomfortable. Patient states he needs something for his pain now;CLAY GRINDER Dilaudid drip still in place. Family asking [...] artery disease involving coronary bypass graft of eyak heart without angina pectoris ARTERIOSCLEROSIS OF CORONARY [...] Franco DO - 09/07/2018 10:15 AM EST [facility] Progress Note 09/07/2018 Tristin Powell 1940 [id number] Assessment/Plan: Tristin Powell is a 78 y.o. male with a history of PVD s/p LLE angio with stent placement 08/09, prostate cancer, PVD, CAD, HTN who presented to [facility] 09/04/2018 as a transfer from [place] for second opinion regarding left lower extremity pain and discoloration that was present two days prior to admit there on 08/30. On admit his exam was notable for cool mottled left foot. He was admitted for further work up. Labs prior to transfer notable for Cr 0.7. 1. Critical LLE Ischemia: s/p LLE angio 08/09, Discharged on xeralto. Returned to the [facility] with worsening pain and discoloration of his [...] the setting of acute limb ischemia.On dilaudid CLAY GRINDER per pain management. 3. Opioid induced constipation: [...] has uncontrolled LLE pain. Currently on Dilaudid CLAY GRINDER pump and pt is maxing his dose at 1.5mg q1h. Pt states he has continued pain in LLE. Instructed nursing staff tocontact pain management for updated pain plan/CLAY GRINDER titration. Plan for bypass surgery today. Physical [...] Franco DO - 09/06/2018 11:35 AM EST [facility] Progress Note 09/06/2018 Tristin Powell 1940 [id number] Assessment/Plan: Tristin Powell is a 78 y.o. male with a history of PVD s/p LLE angio with stent placement 08/09, prostate cancer, PVD, CAD, HTN who presented to [facility] 09/04/2018 as a transfer from [place] for second opinion regarding left lower extremity pain and discoloration that was present two days prior to admit there on 08/30. On admit his exam was notable for cool mottled left foot. He was admitted for further work up. Labs prior to transfer notable for Cr 0.7. 1. Critical LLE Ischemia: s/p LLE angio 08/09, Discharged on xeralto. Returned to the [facility] with worsening pain and discoloration of his [...] 91 CALCIUM mg/dL 9.5 9.3 * Yasmeen Diaz, NEON SIGN MECHANIC - 09/06/2018 7:37 AM EST [facility] Heart & Vascular Cardiology Daily [...] with stent placement 08/09 at [facility] in [place], [place]. Ptwas placed on Xarelto and ASA. [...] artery disease involving coronary bypass graft of eyak heart without angina pectoris Assessment & Plan [...] Yasmeen Diaz CNP 81 mg at 09/05/18 0951 aspirin EC tablet 162 mg 162 mg Oral Daily Mirna Mckeon MD 162 mg at 09/05/18 1755 atorvastatin (LIPITOR) tablet 40 mg 40 mg [...] Daily Mirna Mckeon MD 100 mg at 2 gabapentin (NEURONTIN) capsule 300 mg 300 mg Oral Q12H SADIA Mirna Mckeon MD 300 mg at 09/05/182030 heparin (porcine) 25,000 unit/250 mL(100 unit/mL) in D5W infusion 0-70 Units/kg/hr (Order-Specific)Intravenous Continuous Tianapankaj Em DO Stopped at 09/05/18 1542 HYDROmorphone (DILAUDID) 0.5 [...] 0.4 mg Sublingual Q5 Min PRN Yasmeen Diaz, KAMARI ondansetron (ZOFRAN-ODT) disintegrating tablet 4 mg 4 mg Oral Q6H PRN Mirna Mckeon MD Or ondansetron (ZOFRAN) injection 4 mg 4 mg Intravenous Q6H PRN Mirna Mckeon MD 4 mg at 01/09/19 2205 ondansetron (ZOFRAN-ODT) disintegrating tablet 4 mg 4 mg Oral Q6H PRN Ben Hahn MD 4 mg at 09/05/18 1905 Or [...] CKTOTAL, CKMB, TROPONINI, TROPONINT Yasmeen Diaz, MSN, SHRUB GROWER-C Nurse Practitioner 09/06/2018 * Vianca Franco DO - 09/05/2018 11:11 AM EST [facility] Progress Note 09/05/2018 Tristin Powell 1940 [id number] Assessment/Plan: Tristin Powell is a 78 y.o. male with a history of PVD s/p LLE angio with stent placement 08/09, prostate cancer, PVD, CAD, HTN who presented to [facility] 09/04/2018 as a transfer from [place] for second opinion regarding left lower extremity [...] 08/09, Discharged on xeralto. Returned to the [facility] with worsening pain and discoloration of his [...] EST Patient Name: Tristin Powell MR #: [id number] : 1940 Physicians: Flash Lovelace MD (Family); No ref. provider found (Referring) History of Present Illness: Tristin Powell is a 78 y.o. male Dictation on: 09/20/2018 5:58 PM by: FLYNN MANN [[id number]] History: The following portions of the patient's [...] None 09/20/2018 2:00 PM Wound Bed Characteristics Black;Yellow;Red;[place] 09/20/2018 2:00 PM Edna-wound Assessment Dry;Ecchymosis 09/20/2018 2:00 PM Treatments Not Applicable 09/20/2018 2:00 PM Hemostasis Not applicable 09/20/2018 2:00 PM Cleansed Sterile saline 09/20/2018 2:00 PM Primary Dressing Betadine;Impregnated gauze 09/20/2018 2:00 PM Secondary Dressing Dry gauze dressing;Gauze roll;Gauze pad 09/20/2018 2:00 PM Compression Dressing Not Applicable 09/20/2018 2:00 PM Dictation on: 09/20/2018 5:59 PM by: FLYNN MANN [[id number]] Assessment and Plan: SNOMED CT(R) 1. Critical lower limb ischemia CRITICAL LOWER LIMB ISCHEMIA Prealbumin Albumin Protein,Total XR Foot Left 3+ Views (Standard) XR Ankle Left 3+ Views (Standard) 2. Gangrene (HCC) GANGRENOUS DISORDER 3. PVD (peripheral vascular disease) (HCC) PERIPHERAL VASCULAR DISEASE 4. Left foot pain PAIN IN LEFT FOOT Dictation on: 09/20/2018 6:00 PM by: FLYNN MANN [[id number]] Flynn Mann DPM, FACFAS Electronically signed by [...] Lew LISW - 09/27/2018 10:35 AM EST ADRIENNE faxed signed orders from pt's 09/20/18 clinic visit to pt's [facility], [facility] [place]. ADRIENNE previously faxed same on 09/20/18 but now signed by physician. in this encounter* Radha Parker RN - 10/04/2018 4:59 PM EST Patient was admitted to [facility] for surgery. * Flynn Mann DPM - 10/04/2018 4:50 PM EST Patient Name: Trsitin Powell MR #: [id number] : 1940 Physicians: Flash Lovelace MD (Family); [...] post bypass surgery with Dr. Sarabia at [facility] on 09/07/2018. No new complaints per [...] margins. We will admit the patient to [facility] today, and he will receive IV antibiotic therapy. We will maintain medical and cardiac clearance as appropriate and have the patient have IV antibiotic therapy to optimize the soft tissue windows at least 48 hours prior to the surgical endeavor, which might take place on Monday, October 08.Consider I and D with delayed [...] Canseco MD - 10/12/2018 9:44 AM EST [facility] PROGRESS NOTE Assessment and Plan 78 y.o. male patient of Flash Lovelace MD with history of PAD, CAD and HTN that presented to [place] with need for left foot partial amputation. [...] lovenox Qureshi Catheter: none Disposition Discharge Location: [facility] Estimated Discharge Date: Medically stable to discharge [...] Radiology, Cardiology, Medications and Transcriptions * Edwina Bronwe RPh,PharmD - 10/12/2018 9:26 AM EST PHARMACOTHERAPY NOTE: [...] 14.5-hour post-dose level Pharmacist: Edwina Browne RPh,PharmD, BCPS Contact Number: Vocera OR pharmacist * Monica Moore, PT - 10/12/2018 8:49 AM EST Physical [...] Independent Transfers Sit to Stand: Contact guard Director Inbound Sales: Wheeled walker Skilled Intervention: cont. to reinforce [...] Wheelchair-electric Prior Level of Function Level of [place]: Independent with ADLs and functional transfers, Independent [...] labs reviewed. -Empiric IV Vancomycin. -Radiographs reviewed. -[facility] c'sed for medical management. -WBAT to LLE -DVT ppx lovenox. -Patient discussed with Dr. Mann who agrees with assessment and plan. Patient had bypass surgery ofLLE at [place] in August. Pt now s/p left midfoot [...] articulations. Surgical drain present. VK/mll Workstation ID: [id number] XR Chest 1 View Final Result 1. [...] EST VM from Jose Manuel @ [facility] requesting final Iv atb orders. Return call to Jose Manuel noting one more random Vanco level in AM, then final dose to be determined. Jose Manuel asks we communicate with Andrew tomorrow in Jose Manuel's absence. * Maggy Valenzuela, TIMBER SURVEYOR - 10/11/2018 4:01 PM EST Occupational Therapy [...] Sit: Modified independence Sit to Supine: Modified [place] Functional Transfers Sit to Stand: Contact guard [...] Wheelchair-electric Prior Level of Function Level of [place]: Independent with ADLs and functional transfers, Independent [...] 36-hour post-dose level Pharmacist: Edwina Browne RPh,PharmD, [facility] Contact Number: Vocera OR pharmacist * Jeanette Ramirez RN - 10/11/2018 1:03 PM EST Call from daughter Monica Zaidi requesting update on pre-cert and possible transport needs. Advised Monica we do not yet have pre-cert and we plan to notify her of the same once we obtain it. She requests to transport her father to [facility]. She relates they have been transporting him NEWS CONTENT SPECIALIST and are aware of his limited gait and transferring capabilities. Monica plans to arrive here 10/12 after an AM meeting. Plan to contact Monica once pre-cert is obtained # [phone]. * Alice Delvalle, NEWS CONTENT SPECIALIST - 10/11/2018 11:33 AM EST Physical Therapy [...] to Chair: (x 2 for line management) Director Inbound Sales: Wheeled walker Skilled Intervention: cued to achieve [...] Wheelchair-electric Prior Level of Function Level of [place]: Independent with ADLs and functional transfers, Independent [...] Canseco MD - 10/11/2018 10:43 AM EST [facility] PROGRESS NOTE Assessment and Plan 78 y.o. male patient of Flash Lovelace MD with history of PAD, CAD and HTN that presented to [place] with need for left foot partial amputation. [...] lovenox Qureshi Catheter: none Disposition Discharge Location: SNF Estimated Discharge Date: Pending Hgb stability Outpatient [...] Radiology, Cardiology, Medications and Transcriptions * Nabor Hamilton, DPM - 10/11/2018 6:59 AM EST Podiatry [...] labs reviewed. -Empiric IV Vancomycin. -Radiographs reviewed. -[facility] c'sed for medical management. -WBAT to LLE -DVT ppx lovenox. -Patient discussed with Dr. Mann who agrees with assessment and plan. [facility] [place] [facility] Pt now s/p left midfoot [...] articulations. Surgical drain present. VK/mll Workstation ID: [id number] XR Foot Left 3+ Views (Standard) Final [...] PAD, CAD and HTN that presented to [place] with need for left foot partial amputation. Action: AUDREY met with pt who requests referral to [facility] at [place]. AUDREY educated pt on referral/PC process. Pt states [...] labs reviewed. -Empiric IV Vancomycin. -Radiographs reviewed. -[facility] c'sed for medical management. -WBAT to LLE -DVT ppx lovenox. -Patient discussed with Dr. Mann who agrees with assessment and plan. Patient had bypass surgery ofLLE at [place] in August. Pt now s/p left midfoot [...] articulations. Surgical drain present. VK/mll Workstation ID: [id number] XR Foot Left 3+ Views (Standard) Final [...] Canseco MD - 10/10/2018 9:37 AM EST [facility] PROGRESS NOTE Assessment and Plan 78 y.o. male patient of Flash Lovelace MD with history of PAD, CAD and HTN that presented to [place] with need for left foot partial amputation. [...] primary Qureshi Catheter: none Disposition Discharge Location: SNF Estimated Discharge Date: Pending Hgb stability Outpatient [...] Information Primary Caregiver: Self Accompanied by/Relationship: none Rastafarian/Cultural Factors: none Legal Documentation Advance Directives: (none) Resuscitation Status: Resuscitate Resources Financial Resources: Other (Comment)([employer] Medicare insurance confirmed) Community Resources: Other (Comment)(PCP Dr. Lovelace [phone]) Discharge Plan Shared UM/CC and RN Source of Information: Patient Contact Phone Number: emergency contact Amina Zaidi p:[phone] Living Arrangements: Children Support Systems: Children Functional Status: Independent Type of Residence: Private residence Prior to Admission Home Care Services: Yes Type of Current Home Care Services: Home health care Current Agency Name: [facility] Current Home Equipment: Walker, Wheeled walker, Toilet seat car rental manager, Tub/Shower chair Insurance Coverage for Prescriptions: Yes [...] Estimated Energy Needs Total Energy Estimated Needs: 8893-1803 kcal Method for Estimating Needs: 25-30 kcal/kg Total Protein Estimated Needs: 95-144 gm Method for Estimating Needs: 1.0-1.2 gm/kg Assessed by: Gaye Carver RD,LD Phone #: [phone] Pager #: [phone] * Stan Canseco MD - 10/09/2018 11:01 AM EST [facility] PROGRESS NOTE Assessment and Plan 78 y.o. male patient of Flash Lovelace MD with history of PAD, CAD and HTN that presented to [place] with need for left foot partial amputation. [...] primary Qureshi Catheter: none Disposition Discharge Location: SNF Estimated Discharge Date: Medically stable to [place] home Outpatient Testing: none Subjective Resting comfortably. [...] labs reviewed. -Empiric IV Vancomycin. -Radiographs reviewed. -[facility] c'sed for medical management. -WBAT to LLE -DVT ppx lovenox. -Patient discussed with Dr. Mann who agrees with assessment and plan. Patient had bypass surgery [place] at [place] in August. Pt now s/p left midfoot [...] articulations. Surgical drain present. VK/mll Workstation ID: [id number] XR Foot Left 3+ Views (Standard) Final [...] Canseco MD - 10/08/2018 10:45 AM EST [facility] PROGRESS NOTE Assessment and Plan 78 y.o. male patient of Flash Lovelace MD with history of PAD, CAD and HTN that presented to [place] with need for left foot partial amputation. [...] reviewed: No acute abnormalities or ST gas -[facility] c'sed for medical management and preoperative clearance. -WBAT to LLE -DVT ppx lovenox. -Patient discussed with Dr. Mann who agrees with assessment and plan. Pt with mummification and drygangrene of left forefoot, patient had bypass surgery of LLE at [place] in August. Pt with some local erythema [...] in this patient's care. Demetrice Lomeli, PharmD, [facility] ED Pharmacy * Aaron Choi MD - 10/07/2018 11:56 AM EST [facility] PROGRESS NOTE Assessment and Plan 78 y.o. male patient of Flash Lovelace MD with history of PAD, CAD and HTN that presented to [place] with need for left foot partial amputation. [...] Microbiology, Pathology, Radiology, Cardiology, Medications and Transcriptions Ofe Jensen DPM - 10/07/2018 10:09 AM EST Podiatry [...] reviewed: No acute abnormalities or ST gas -[facility] c'sed for medical management and preoperative clearance. -WBAT to LLE -DVT ppx lovenox. -Patient discussed with Dr. Mann who agrees with assessment and plan. Pt with mummification and drygangrene of left forefoot, patient had bypass surgery of LLE at [place] in August. Pt with some local erythema will monitor response to Abx. Continue daily betadine dressing changes. Plan for OR on Monday (10/08/18) for left midfoot amputation (Open vs. Closed) at 7am. Consent obtained. [facility] consulted for medical management. Patient will require preoperative risk stratification. Appreciate [facility] assistance. Further plan per Dr. Mann SUBJECTIVE [...] Choi MD - 10/06/2018 10:50 AM EST [facility] PROGRESS NOTE Assessment and Plan 78 y.o. male patient of Flash Lovelace MD with history of PAD, CAD and HTN that presented to [place] with need for left foot partial amputation. [...] reviewed: No acute abnormalities or ST gas -[facility] c'sed for medical management and preoperative clearance. -WBAT to LLE -DVT ppx lovenox. -Patient discussed with Dr. Mann who agrees with assessment and plan. Pt with mummification and drygangrene of left forefoot, patient had bypass surgery of LLE at [place] in August. Pt with some local erythema will monitor response to Abx. Continue daily betadine dressing changes. Plan for OR on Monday (10/08/18) for left midfoot amputation (Open vs. Closed) at 7am. Consent to be obtained. [facility]. Patient will require preoperative risk stratification. AppreciateS assistance. Further plan per Dr. Mann SUBJECTIVE [...] ID: [id number] Echocardiogram complete (Results Pending) * Lzaaro Clifton DPM - 10/05/2018 6:40 AM EST [...] reviewed: No acute abnormalities or ST gas -[facility] c'sed for medical management and preoperative clearance. -WBAT to LLE -DVT ppx lovenox. -Patient discussed with Dr. Mann who agrees with assessment and plan. Pt with mummification and drygangrene of left forefoot, patient had bypass surgery of LLE at [place] in August. Pt with some local erythema will monitor response to Abx. Continue daily betadine dressing changes. Plan for OR on Monday (10/08/18) for left midfoot amputation (Open vs. Closed). [facility] consulted for medical management. Patient will require preoperative risk stratification. Appreciate [facility] assistance. Further plan per Dr. Mann SUBJECTIVE [...] further evaluation is clinically warranted, consider MRI. [facility]/dbg Workstation ID: [id number] Associated attestation - Flynn [...] EST Patient Name: Tristin Powell MR #: [id number] : 1940 Physicians: Flash Lovelace MD (Family); No ref. provider found (Referring) History of Present Illness: Tristin Powell is a 78 y.o. male Dictation on: 10/18/2018 6:12 PM by: FLYNN MANN [[id number]] History: The following portions of the patient's [...] on: 10/18/2018 6:13 PM by: FLYNN MANN [[id number]] Assessment and Plan: SNOMED CT(R) 1. Gangrene (HCC) GANGRENOUS DISORDER 2. 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 (HCC) HISTORY OF AMPUTATION OF FOOT 3. PVD (peripheral vascular disease) ([facility]) PERIPHERAL VASCULAR DISEASE Dictation on: 10/18/2018 6:14 PM by: FLYNN MANN [[id number]] Flynn Mann, TIFFANYM, FACFAS Electronically signed by the above physician 10/18/18 * Maia Duvall RN - 10/18/2018 4:16 PM EST Dressing changed by Dr Mann. Betadine, 4x4's, ABD pad, specialist cast padding, splint, rio bandages * Maia Duvall RN - 10/18/2018 3:39 PM EST in this encounter* Mine Lew LISW - 10/19/2018 8:38 AM EST Pt was seen in clinic 10/18/18. [facility] faxed signed d/c orders/instructions to pt's SNF, [facility]. in this encounter* Mine Lew LISW - 10/26/2018 9:19 AM EST Pt was seen in wound clinic 10/25/18. [facility] faxed signed orders/instructions to pt's [facility], [facility]. in this encounter* Radha Parker RN - 10/31/2018 4:45 PM EST Opened in error. in this encounter* Eugene Barnett MD - 12/17/2018 9:57 PM EDT [facility] [address] [place] [address] [place] [address] FAX [phone] Tristin Powell 1940 male MD Flash Peña MD [phone] Chief Complaint Patient presents with Cerumen Impaction [...] MIDFOOT AMPUTATION; Surgeon: Flynn Mann DPM; Location: [facility] OR; Service: Podiatry ANKLE SURGERY Left BYPASS PERONEAL FEMORAL Right 09/07/2018 Procedure: BYPASS PERONEAL FEMORAL, RIGHT SAPHENOUS VEIN HARVEST, COMPLETION ANGIOGRAM; Surgeon: Mohsen Sarabia MD; Location: [facility] NEURO OR; Service: Cardiovascular CARDIAC CATHETERIZATION Left 09/05/2018 Procedure: Angio Lower Extremity; Surgeon: Ben Hahn MD; Location: [facility] TELEVISION CABINET FINISHER; Service: Cardiovascular CARDIAC SURGERY 2017 triple bypass EGD N/A 10/10/2018 Procedure: ESOPHAGOGASTRODUODENOSCOPY; Surgeon: Ben Jensen MD; [place] [facility] [place]; Service: Gastroenterology EYE SURGERY Right 2015 [...] MD documented in this encounter* Rose Rosales, NEON SIGN MECHANIC - 10/09/2019 5:07 PM EST VASCULAR SURGERY CONSULT NOTE Patient Name: Tristin Powell Admit Date: MR #: [id number] : 1940 Assessment and Plan: cta with [...] (Dorsalis Pedis) 105 mmHg Toe 86 mmHg AYMILE 0.79 ratio TBI 0.57 ratio Left Pressures/Ratios [...] MIDFOOT AMPUTATION; Surgeon: Flynn Mann DPM; Location: [facility] OR; Service: Podiatry ANKLE SURGERY Left BYPASS PERONEAL FEMORAL Right 09/07/2018 Procedure: BYPASS PERONEAL FEMORAL, RIGHT SAPHENOUS VEIN HARVEST, COMPLETION ANGIOGRAM; Surgeon: Mohsen Sarabia MD; Location: [facility] OR; Service: Cardiovascular CARDIAC CATHETERIZATION Left 09/05/2018 Procedure: Angio Lower Extremity; Surgeon: Ben Hahn MD; Location: [facility] TELEVISION CABINET FINISHER; Service: Cardiovascular CARDIAC SURGERY 2017 triple bypass EGD N/A 10/10/2018 Procedure: ESOPHAGOGASTRODUODENOSCOPY; Surgeon: Ben Jensen MD; [place] [facility] [place]; Service: Gastroenterology EYE SURGERY Right 2015 [...] file Gets together: Not on file Attends confucianist service: Not on file Active member of [...] Instructions Prior to Surgery LOLA: Printed on:10/09/19 9635 Medication Information Take last dose on Take [...] the diagnosis & follow-upneeds. Rose Rosales CNP [phone] documented in this encounter* Flynn Mann DPM - 10/25/2018 6:03 PM EST Patient Name: Tristin Powell MR #: [id number] : 1940 Physicians: Flash Lovelace MD (Family); No ref. provider found (Referring) History of Present Illness: Tristin Powell is a 78 y.o. male Dictation on: 10/25/2018 6:03 PM by: FLYNN MANN [[id number]] History: The following portions of the patient's [...] on: 10/25/2018 6:04 PM by: FLYNN MANN [[id number]] Assessment and Plan: SNOMED CT(R) 1. 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 Gangrene (HCC) GANGRENOUS DISORDER 3. PVD (peripheral vascular disease) ([facility]) PERIPHERAL VASCULAR DISEASE 4. 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 Lower extremity edema EDEMA OF LOWER EXTREMITY Dictation on: 10/25/2018 6:04 PM by: FLYNN MANN [[id number]] Flynn Mann DPM, FACFAS Electronically signed by the above physician 10/25/18 * Lori Velez RN - 10/25/2018 3:46 PM EST in this encounter* Mine Lew LISW - 09/21/2018 8:27 AM EST Pt was seen in clinic 09/20/18. [facility] faxed signed d/c orders/instructions to pt's [facility], [facility]. in this encounter* Mohsen Sarabia MD - [...] MD DATE OF SERVICE: 11/12/2019 NAME: TRISTIN POWELL. DATE OF : 1940 AMENDED TO CORRECT [...] not included)... Note Patient: TRISTIN POWELL MRN: [id number] Age: 79 years Sex: Male : 1940 Associated Diagnoses: None Author: Jose C Davis MD Assessment Assessment Diagnosis: Osteoarthritis (HKH08-ZM M47.892, Working, Medical). Posterior cervical fusion. Dr. [...] artery disease involving coronary bypass graft of eyak heart without angina pectoris Hypercholesteremia Pure hypercholesterolemia Essential hypertension Unspecified essential hypertension Class 1 obesity with body mass index (BMI) of 31.0 to 31.9 in adult Pain of left lower extremity Diagnosis Critical lower limb ischemia- Primary Unspecified circulatory system disorder Gangrene (HCC) Gangrene PVD (peripheral vascular disease) ([facility]) Unspecified peripheral vascular disease Left foot pain Pain in soft tissues of limb Diagnosis Critical lower limb ischemia Unspecified circulatory system disorder Diagnosis Gangrene (HCC)- Primary Gangrene PVD (peripheral vascular disease) ([facility]) Unspecified peripheral vascular disease Left foot pain Pain in soft tissues of limb Critical lower limb ischemia Unspecified circulatory system disorder Ulcer of toe of left foot, with necrosis of bone ([facility]) Diagnosis Acute post-operative pain- Primary Gangrene of left foot ([facility]) Diagnosis Gangrene ([facility])- Primary Gangrene 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 ([facility]) PVD (peripheral vascular disease) ([facility]) Unspecified peripheral vascular disease Lower extremity edema Edema 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, left Diagnosis 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 ([facility]) S/P bypass graft of extremity Diagnosis Referred otalgia of right ear- Primary Bilateral temporomandibular joint pain Diagnosis Bilateral carotid artery stenosis Occlusion and stenosis of carotid artery without mention of cerebral infarction Diagnosis 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 ([facility]) S/P bypass graft of extremity Diagnosis 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 ([facility]) S/P bypass graft of extremity Diagnosis Pain of left lower extremity Diagnosis S/P bypass graft of extremity PAD (peripheral artery disease) ([facility]) Unspecified peripheral vascular disease 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 ([facility]) Diagnosis Bilateral carotid artery stenosis Occlusion and stenosis of carotid artery without mention of cerebral infarction Diagnosis 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 ([facility]) Diagnosis 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 ([facility])- Primary Gangrene (HCC) Gangrene PVD (peripheral vascular disease) ([facility]) Unspecified peripheral vascular disease 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 [...] If the bleeding does not stop, call [facility] at [phone] or go to the Emergency Room. Signs/Symptoms of infection: If you have any fever, chills, nausea, vomiting or increased odor, drainage, pain or redness to thewound, call [facility] at [phone]. If after hours, contactyour family physician or [...] regarding your home care instructions please contact [facility] at [phone]. If after hours, contact your primary care physician or go to the hospital emergency room. Please call 24 hours prior to your scheduled appointment if you need to cancel or reschedule. in this encounter* Patient Instructions* Radha Parker RN - 10/04/2018 1:14 PM EST You are being [facility] for surgery possibly Monday. Go to [facility]. in this encounter* Patient Instructions* Maia Duvall [...] If the bleeding does not stop, call [facility] at [phone] or go to the Emergency Room. Signs/Symptoms of infection: If you have any fever, chills, nausea, vomiting or increased odor, drainage, pain or redness to thewound, call [facility] at [phone]. If after hours, contactyour family physician or [...] regarding your home care instructions please contact [facility] at [phone]. If after hours, contact your primary care [...] If the bleeding does not stop, call [facility] at [phone] or go to the Emergency Room. Signs/Symptoms of infection: If you have any fever, chills, nausea, vomiting or increased odor, drainage, pain or redness to thewound, call [facility] at [phone]. If after hours, contactyour family physician or [...] regarding your home care instructions please contact [facility] at [phone]. If after hours, contact your primary care physician or go to the hospital emergency room. Please call 24 hours prior to your scheduled appointment if you need to cancel or reschedule. in this encounter Procedure Findings Note Patient: TRISTIN POWELL Age: 79 years Sex: Male : 1940 [...] for spinal fusion. SURGEON: Ramana Cason MD FILTERATION OPERATOR: LEONARDA Selby ANESTHESIA: General. SPECIMENS: There were no specimens removed. COMPLICA (more content not included)... Note CLINICAL SUMMARY Please take this summary document to your follow up appointments. [facility] 11/29/19 11:09 [address] [place]. [address] PATIENT INFORMATION Name: TRISTIN POWELL Address: [address] [address] Age: 79 Years Phone: [phone] : 1940 12:00 MRN: [id number] Sex: Male Race: White Ethnicity: Not Hispan/Lat Admitted From: Clinic or [facility] Medical Service: Orthopedic Surgery Nurse Unit/Bed: (CO) [...] not included)... Note Patient: TRISTIN POWELL MRN: [id number] Age: 79 years Sex: Male : 1940 Associated Diagnoses: None Author: Jose C Davis MD Assessment Assessment Diagnosis: Osteoarthritis (FWH64-WQ M47.892, Working, Medical). Posterior cervical fusion. Dr. [...] Admit Date Peripheral vascular disease March 11, 025 11:20am Additional Source Comments (unrecognized sect [...] section and content) DATE CREATED AUTHOR 02/16/2018 [facility] DATE CREATED AUTHOR AUTHOR'S ORGANIZ ATION 09/07/2018 [facility] DATE CREATED AUTHOR AUTHOR'S ORGANIZ ATION 11/01/2018 [facility] DATE CREATED AUTHOR AUTHOR'S ORGANIZ ATION 11/02/2018 [facility] DATE CREATED AUTHOR AUTHOR'S ORGANIZ ATION 11/12/2018 [facility] DATE CREATED AUTHOR AUTHOR'S ORGANIZ ATION 05/28/2020 [facility] DATE CREATED AUTHOR AUTHOR'S ORGANIZ ATION 07/21/2021 [facility] DATE CREATED AUTHOR AUTHOR'S ORGANIZ ATION 01/02/2022 [facility] DATE CREATED AUTHOR AUTHOR'S ORGANIZ ATION 05/24/2022 [facility] DATE CREATED AUTHOR AUTHOR'S ORGANIZ ATION 10/29/2022 [facility] DATE CREATED AUTHOR AUTHOR'S ORGANIZ ATION 11/01/2022 [facility] DATE CREATED AUTHOR AUTHOR'S ORGANIZ ATION 12/08/2022 [facility] DATE CREATED AUTHOR AUTHOR'S ORGANIZ ATION 08/15/2023 [facility] DATE CREATED AUTHOR AUTHOR'S ORGANIZ ATION 12/31/2023 [facility] DATE CREATED AUTHOR AUTHOR'S ORGANIZ ATION 05/15/2024 [facility] DATE CREATED AUTHOR AUTHOR'S ORGANIZ ATION 12/22/2024 [facility] DATE CREATED AUTHOR AUTHOR'S ORGANIZ ATION 01/24/2025 [facility] DATE CREATED AUTHOR AUTHOR'S ORGANIZ ATION 03/26/2025 [facility] DATE CREATED AUTHOR AUTHOR'S ORGANIZ ATION 04/21/2025 [facility] d[facility] Specialists EPIC DATE CREATED AUTHOR AUTHOR'S ORGANIZ ATION 04/25/2025 [facility] DATE CREATED AUTHOR AUTHOR'S ORGANIZ ATION 04/25/2025 [facility] Reason for Visit (unrecogniz ed section and [...] Contact Pending Review Cardiology Diagnoses 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) S/P bypass graft of extremity Procedures US Doppler ankle/brachial index Segmental doppler lower extremity arterial Mohsen Sarabia MD [address] [place] [address] Reason Comments Cerumen Impaction Status Reason Specialty Diagnoses / Procedures Referred By Contact Referred To Contact Pending Review Cardiology Diagnoses Bilateral carotid artery stenosis Procedures Carotid Duplex Mohsen Sarabia MD [address] [place] [address] Reason Comments Follow-up S/P PERONEAL- FEMORA L BYPASS 09/07/18 Status Reason Specialty Diagnoses / Procedures Referre d By Contact Referred To Contact Closed Radiology Diagnoses S/P bypass graft of extremity PAD (peripheral artery disease) (HCC) 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) Procedures CT Angiogram Abdominal Aorta With Lower Extremity Mohsen Sarabia MD [address] [place] [address] Status Reason Specialty Diagnoses / Procedures Referred By Contact Referred To Contact Closed Cardiology Diagnoses Bilateral carotid artery stenosis Procedures Carotid Duplex Mohsen Sarabia MD [address] [place] [address] Status Reason Specialty Diagnoses / Procedures Referre d By Contact Referred To Contact Closed Cardiology Diagnoses 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 bypass gr aft 09/09 Reason Comments Follow-up 6mo per-fem bypass g raft Status Reason Specialty Diagnoses / Procedures Referred By Contact Referred To Contact Pending Review Cardiology Diagnoses Atherosclerosis of eyak artery of left lower extremity with rest pain (HCC) S/P bypass graft of extremity Procedures Ultrasound duplex arterial leg left Mohsen Sarabia MD [address] [place] [address] Reason Comments Post Op Visit Specialty Diagnoses / Procedures Referred By Jason christie Referred To Contact Diagnoses Pain in prosthetic joint, subsequent encounter Procedures XR HIP WITH PELVIS RIGHT Dashawn Silvestre MD [address] [place] [address] Referral ID Status Reason Start Date Expiration Date V isits Requested Visits Authorized [id number] New Request 11/19/2021 12/14/2022 1 1 Reason Comments Skin Lesion Specialty Diagnoses / Procedures Referred By Contac t Referred To Contact Diagnoses Hx of total hip arthroplasty, right Procedures XR HIP WITH PELVIS RIGHT Dashawn Silvestre MD [address] [place] [address] Referral ID Status Reason Start Date Expiration Date V isits Requested Visits Authorized [id number] New Request 01/05/2022 01/30/2023 1 1 Reason Comments Pain Condition Update Reason Comments Leg Swelling Leg Pain Nausea Specialty Diagnoses / Procedures Referred By Contac t Referred To Contact Diagnoses Cellulitis Referral ID Status Reason Start Date Expiration Date Visits Re quested Visits Authorized [id number] 1 1 Reason Comments Consult Lung nodule and CT f /u Specialty Diagnoses / Procedures Referred By Contac t Referred To Contact Pulmonary Disease / Pulmonology Diagnoses Pulmonary nodule Muna Otto MD [address] [facility] Tim John [address] [place] [address] Carson Gallagher MD [address] [facility] [address] [place] [address] Referral ID Status Reason Start Date Expiration Date Visits Requested Visits Authorized [id number] Pending Review Specialty Services Required/Lucia gonzalez's Best Interest 01/20/2022 01/20/2023 1 1 Reason Comments Leg Swelling Specialty Diagnoses / Procedures Referred By Contac t Referred To Contact Diagnoses PAD (peripheral artery disease) ([facility]) Referral ID Status Reason Start Date Expiration Date Visits Re quested Visits Authorized [id number] 1 1 Specialty Diagnoses / Procedures Referred By Contac t Referred To Contact Diagnoses Hx of total hip arthroplasty, right Procedures XR HIP WITH PELVIS RIGHT Scar Ortega, ART DEPARTMENT HEAD-NEON SIGN MECHANIC [address] [place] [address] Referral ID Status Reason Start Date Expiration Date V isits Requested Visits Authorized [id number] New Request 07/06/2022 07/31/2023 1 1 Reason Comments Follow-up Reason Onset Date Comments Medication Refill 08/30/2022 Reason Comments Foot Injury Shortness of Breath Specialty Diagnoses / Procedures Referred By Contac t Referred To Contact Diagnoses Peripheral edema Elevated troponin Community acquired pneumonia of left lower lobe of lung Referral ID Status Reason Start Date Expiration Date Visits Re quested Visits Authorized [id number] 1 1 Reason Comments Follow-up [id number] LT FEM-PERONEAL BYPASS 09/07/18, (YAMILE AND DUPLEX BYPASS GRAFT PRIOR TODAY). Patient complains of bilateral leg pain. Referral ID Status Reason Start Date Expiration Date V isits Requested Visits Authorized [id number] New Request 08/01/2023 08/25/2024 1 1 Reason [...] Specialty Diagnoses / Procedures Referred By Jason t Referred To Contact Diagnoses Claudication Right leg pain PAD (peripheral artery disease) (HCC) Peripheral artery disease Referral ID Status Reason Start Date Expiration Date Visits Re quested Visits Authorized [id number] 1 1 Reason Comments Hospital Follow-up Reason Comments Follow-up FU - WOUND CHECK - s /p R FEM-TIB BYPASS, 03/17 - APPT PER KULDEEP ZELAYA Reason Comments Foot Ulcer Reason Comments Wound Check POST-OP - FU - WOUND CHECK - S/P R FEM-TIB BYPASS, 03/17 - BLE DUPLEX GRAFT, YAMILE'S PRIOR APPT TODAY - APPT PER KULDEEP BOX Reason Onset Date Comments Medication Question 04/29/2025 Has a terrib le cold and runny nose wanted to know if you could zuly in a z-pack for him. Reason Comments Med Refill Ben Jiang MD - 09/07/2018 3:18 PM Miryam Mederos MD - 09/06/2018 9:17 AM Mirna Blackman MD - 09/04/2018 8:41 PM Ofe Best DPM - 10/08/2018 6:16 AM EST H&P Notes (unrecognized sect ion and content) INTERVAL HISTORY AND PHYSICAL Patient Name: Tristin Powell Admit Date: 1070905 MR #: [id number] : 1940 The H&P has been reviewed and the patient has been examined. I concur with the findings of the H&P. There are no significant changes. It is appropriate to proceed with the planned procedure. Ben Jiang MD 09/07/2018 3:18 PM VASCULAR SURGERY CONSULT NOTE 09/06/18 Patient Name: Tristin Powell : 1940 MR #: [id number] Admit Date: [id number] ----- Nicolas Addendum As below, 78 y.o. male with a h/o PAD, HTN, HLD, CAD s/p cardiac stent (x7, [id number]), CABG (x3vv, 2017; L [facility]), L ankle ORIF who p/w acute on chronic critical limb ischemia and claudication. Patient states he has been having claudication symptoms in bilateral lower extremities for the past 2-3 years. Patient states that although he has been active the past several months, his symptoms have progressively worsened. In June, the patient visited a transportation dispatcher to evaluate his left foot, in which [...] Dr. Sarabia. Miryam Rincon MD PGY-2 Surgery [phone] After 5pm and on Weekends, please page [phone] (Surgery Drapery And Upholstery Estimator physician compensation analyst) ----- Assessment and Plan: Tristin Powell is a 78 y.o. male with a PMH of PVD s/p LLE angio with stent placement 08/09, prostate cancer, PVD, CAD, HTN and a PSH of L ankle ORIF and thriple CABG in october 2016 with L saphenous vein harvested who presented to [facility] 09/04/2018 as a transfer from [place] for second opinion regarding left lower extremity pain and discoloration Chronic LLE ischemia - Patient underwent LLE angiogram with popliteal ballooning and stent 08/09/2018 in [place], sent on aspirin and xarelto - Angiography [...] prostate cancer presents as a transfer from [place] for concerns for left lower extremity pain and discoloration that has progressivley worsened. He has had pain and claudication symptoms for years which prompted him to to be seen 08/09 were he had ballooning and stent placement to left popliteal. He represented 1/3 with increased LLE pain that was never really helped by the stent. Pain doesn't allow him sleep. While at the [facility] he was planned to undego intervention the day of transfer but requested [facility] transfer for second opinion. Review of Systems: [...] heparin infusion (weight based dosing) Stopped (09/05/18 9372) sodium chloride 0.9 % 20 mL/hr (09/06/18 [...] 09/05/2018 Physician(s): Ben Hahn MD Cath #: [id number] Ref. 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 Dyslipidemia: Yes Hypertension: Yes Pre-OP Diagnosis/Indication: [place] Class/Limb Ischemia: 4 - Ischemic rest pain [...] amputation COMMENTS: No Complications ____ Equipment: Sheath(s) [employer] 5F 10CM PINNACLE SHEATH [employer] 6F 45CM .038 FLEXOR CHECKFLO ANSEL1 SHEATH Wire(s) [employer] .035 X 150CM FIXED J WIRE Catheter(s) MAURICIO & 3 day Blinds 5F MP TEMPO AQUA CATHETER Other [employer] .035 CXI ANGLED SUPPORT CATHETERS SHER [...] Non-Invasive Vascular Patient: SHERRY Bazan [facility] Rec#: [id number] (Age): 1940(78y) Study Date: 09/05/2018 Room#: G93 Type: Inpatient Sex: M Reading: Pierce Moreau DO RPVI Referring: LEVY Binder Technician: Rima Celestin RDCS, RVT Binder Technician: Deena Pelayo RDCS RVLatricia Procedure Info: 23265 Study Quality: Lower Arterial Duplex: adequate Diagnosis: [...] PSV Name Value Units EIA 83.2 cm/sec INSPECTOR MOTOR VEHICLES 95.6 cm/sec Profunda 85.5 cm/sec SFA - prox -25 cm/sec SFA - mid -67.2 cm/sec SFA - dist 58.2 cm/sec Popliteal - dist 0 cm/sec NEWS CONTENT SPECIALIST 6.8 cm/sec Pre Stenosis #1 9.3 cm/sec [...] Esau Alejandro MD General Surgery PGY-1 Pager [phone] *After 5pm, or on weekends, page [phone]* Associated attestation - Mohsen Sarabia MD - 09/06/2018 4:46 PM EST Patient seen and examined. I have personally reviewed all pertinent labs, radiological studies and records. I have personally examined the patient and agree with resident/SHRUB GROWER/PA assessment and plan with the following additional [...] tomorrow. Please resume heparin in the meantime. [facility] History and Physical Note 09/04/18 Tristin Powell 1940 [id number] Assessment/Plan: Tristin Powell is a 78 y.o. male with a history of PVD s/p LLE angio with stent placement 08/09, prostate cancer, PVD, CAD, HTN who presented to [facility] 09/04/2018 as a transfer from [place] for second opinion regarding left lower extremity [...] 08/09, Discharged on xeralto. Returned to the [facility] with worsening pain and discoloration of his [...] Left Leg Pain History of Present Illness: Trisitn Powell is a 78 y.o. male with history of PAD s/p recent stent to the left lower extremity, CAD, prostate cancer presents as a transfer from [place] for concerns for left lower extremity pain and discoloration that was worse for two days. HE has had pain since 08/09 were he had left foot pain and had angioplasty with stent placement to left popliteal . Noted from RN at [facility] to have no No DP pulses by palpation or doppler. Positive popliteal pulse noted.blue/reddish color for the past 2 days . Pain doesn't allow him sleep. While at the [facility] he was planned to undego intervention the day of transfer but requested [facility] transfer for second opinion. [facility] records reviewed as above Patient currently reporting [...] Prostate cancer Brother Home Medications: Tristin Powell Home Medication Instructions Prior to Surgery LOLA:[id number] Printed on:09/04/18 8079 Medication Information Take last dose on Take [...] Results from last 7 days Lab Units 09/04/18 1930 WBC K/mcL 6.36 HGB g/dL 11.2* HCT % 33.3* PLT K/mcL 222 Invalid input(s): MAG LESVIA in this encounter INTERVAL HISTORY AND PHYSICAL Patient Name: Tristin Powell Admit Date: [id number] MR #: [id number] : 1940 The H&P has been reviewed [...] appropriate to proceed with the procedure. Flynn Mann DPM, FACFAS Electronically signed by the above physician 10/08/18 [facility] DA[facility] PROGRESS NOTE Assessment and Plan 78 y.o. male patient of Flash Lovelace MD with history of PAD, CAD and HTN that presented to [place] with need for left foot partial amputation. [...] IV Vancomycin. Monitor local erythema -Radiographs pending -[facility] c'sed for medical management and preoperative clearance. -WBAT to LLE -DVT ppx lovenox. -Patient discussed with Dr. Mann who agrees with assessment and plan. 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 Pt with some local erythema will monitor response to Abx. Plan for OR on Monday (10/08/18) for left midfoot amputation. [facility] consulted for medical management. Patient will require preoperative risk stratification. Appreciate [facility] assistance. Further plan per Dr. Mann HISTORY OF PRESENT ILLNESS Tristin Powell is a 78 y.o. 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 Pt was seen by Dr. Mann at the wound care clinic earlier and was admitted for IV antibiotics and surgical intervention. Pt recently underwent bypass surgery at [facility] and has had improved blood flow and demarcation of gangrene since then. Pt does state that he has a cardiac history of triple bypass and stenting but has had no recent cardiac events, does follow with a shoe clerk. Pt denies any active lung disease. Pt [...] COMPLETION ANGIOGRAM; Surgeon: Mohsen Sarabia MD; Location: [facility] NEURO OR; Service: Cardiovascular CARDIAC CATHETERIZATION Left 09/05/2018 Procedure: Angio Lower Extremity; Surgeon: Ben Hahn MD; Location: [facility] TELEVISION CABINET FINISHER; Service: Cardiovascular CARDIAC SURGERY STENT PLACEMENT Medications [...] (two) times a day . Historical Provider, ondansetron (ZOFRAN) 4 MG tablet [...] agree with the findings and the plan. [facility] consulted for medical management and clearance for anticipated left foot TMA and DEREK on Monday. Patient known to Dr. Sarabia, vascular surgery at [facility], and will follow with her next week [...] The patient will be followed post-operatively. Flynn Mann DPM, FACFAS Electronically signed by the above physician 10/04/18 in this encounter Sakshi Gamboa LSW - 09/11/2018 4:19 PM Flynn Alvarez DPM - 09/10/2018 5:03 PM Chrystal Sanders - 09/10/2018 3:28 PM Marsha Leon OT - 09/10/2018 3:25 PM EST Consult Notes (unrecognized section and content) Associated Order(s): IP CONSULT TO CARE MANAGEMENT COMPLEX DISCHARGE Date: 09/11/2018 Time: 4:19 PM Patient Name: Tristin Powell Date of : 1940 Sex: Male OPTICIAN APPRENTICE met w/pt and daughter at bedside to discuss d/c recommendations. Daughter reports pt will be going home with 24 hour care from his 7 children. Pt requested a SNF list and will keep his options open. OPTICIAN APPRENTICE provided list and pt will notify OPTICIAN APPRENTICE with choice of SNF or home tomorrow. OPTICIAN APPRENTICE notified pt that she will not be [...] PODIATRY Patient Name: Tristin Powell MR #: [id number] : 1940 Physicians: Flash Lovelace MD (Family); Dann Chairez, Torres (Referring) Chief complaint: Tristin Powell is a 78 y.o. male This patient presents for consultation for left lower extremity arterial insufficiency with a progressive gangrene and necrosis, left lower extremity. Patient has a complicated history with what he reports to being as several years of progressive ischemic disease lower extremity. He eventually underwent intervention in the [place], [place] area in June and July of [...] COMPLETION ANGIOGRAM; Surgeon: Mohsen Sarabia MD; Location: [facility]UR[facility] OR; Service: Cardiovascular CARDIAC CATHETERIZATION Left 09/05/2018 Procedure: Angio Lower Extremity; Surgeon: Ben Hahn MD; Location: [facility] TELEVISION CABINET FINISHER; Service: Cardiovascular CARDIAC SURGERY STENT PLACEMENT Family [...] PLT 234 09/10/2018 No results found for: GEOT7SLm results found for: SEDRATE No results found [...] artery disease involving coronary bypass graft of eyak heart without angina pectoris ARTERIOSCLEROSIS OF CORONARY [...] Mod, Two person assist(x2 trials with FWW) Director Inbound Sales: Wheeled walker, 2 people, Gait belt Gait/Locomotion [...] medications Prior Level of Function Level of [place]: Independent with ADLs and functional transfers, Independent with homemaking with ambulation Lives With: Alone 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) Comments: planning to provide / assist from 7 kids Past Medical History: Diagnosis Date Avascular necrosis of bone of hip (HCC) Claudication (HCC) Herpes zoster Hyperlipidemia Hypertension Prostate cancer (HCC) Vascular disease Past Surgical History: Procedure Laterality Date ANKLE SURGERY Left BYPASS PERONEAL FEMORAL Right 09/07/2018 Procedure: BYPASS PERONEAL FEMORAL, RIGHT SAPHENOUS VEIN HARVEST, COMPLETION ANGIOGRAM; Surgeon: Mohsen Sarabia MD; Location: [facility] OR; Service: Cardiovascular CARDIAC CATHETERIZATION Left 09/05/2018 Procedure: Angio Lower Extremity; Surgeon: Ben Hahn MD; Location: [facility] TELEVISION CABINET FINISHER; Service: Cardiovascular CARDIAC SURGERY STENT PLACEMENT For [...] roles. 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) Comments: planning to provide 20/03 assist from 7 kids Past Medical History: Diagnosis Date Avascular necrosis of bone of hip (HCC) Claudication (HCC) Herpes zoster Hyperlipidemia Hypertension Prostate cancer (HCC) Vascular disease Past Surgical History: Procedure Laterality Date ANKLE SURGERY Left BYPASS PERONEAL FEMORAL Right 09/07/2018 Procedure: BYPASS PERONEAL FEMORAL, RIGHT SAPHENOUS VEIN HARVEST, COMPLETION ANGIOGRAM; Surgeon: Mohsen Sarabia MD; Location: [facility] OR; Service: Cardiovascular CARDIAC CATHETERIZATION Left 09/05/2018 Procedure: Angio Lower Extremity; Surgeon: Ben Hahn MD; Location: [facility] TELEVISION CABINET FINISHER; Service: Cardiovascular CARDIAC SURGERY STENT PLACEMENT For [...] yesterday. Patient seen in follow up by KAMARI. See progress note. Associated Order(s): IP CONSULT TO PAIN TEAM ANCILLARY CONSULT NOTE Patient Name: Tristin Powell Admit Date: 1070905 MR #: [id number] : 1940 Consulting Physicians: [facility] Pain Service Assessment and Plan: Pain of left lower extremity Assessment & Plan . The patient did note that he becomes somewhat fatigued after taking medication, but he has not really been sleeping well. At this point, I think would be appropriate, since he has a plan for the operating room tomorrow, to put him on an opioid naive CLAY GRINDER. We will continue to monitor. I did talk extensively with the family about CLAY GRINDER safety and only allowing him to push the button. He does have quite a doting family and they all seem to be on board, understanding the safety concerns that this might present in the event that the patient is to sleep and someone is to press the button for him. We would see how his pain syndrome develops after surgery, but CLAY GRINDER is probably the appropriate treatment. I would [...] Name: Tristin Powell : 1940 MR #: [id number] Admit Date: 1070905 ----- Nicolas Addendum As below, 78 y.o. male with a h/o PAD, HTN, HLD, CAD s/p cardiac stent (x7, [id number]), CABG (x3vv, 2017; L SVH), L ankle ORIF who p/w acute on chronic critical limb ischemia and claudication. Patient states he has been having claudication symptoms in bilateral lower extremities for the past 2-3 years. Patient states that although he has been active the past several months, his symptoms have progressively worsened. In June, the patient visited a transportation dispatcher to evaluate his left foot, in which [...] Dr. Sarabia. Miryam Rincon MD PGY-2 Surgery [phone] After 5pm and on Weekends, please page [phone] (Surgery Drapery And Upholstery Estimator physician compensation analyst) ----- Assessment and Plan: Tristin Powell is a 78 y.o. male with a PMH of PVD s/p LLE angio with stent placement 08/09, prostate cancer, PVD, CAD, HTN and a PSH of L ankle ORIF and thriple CABG in october 2016 with L saphenous vein harvested who presented to [facility] 09/04/2018 as a transfer from [place] for second opinion regarding left lower extremity pain and discoloration Chronic LLE ischemia - Patient underwent LLE angiogram with popliteal ballooning and stent 08/09/2018 in [place], sent on aspirin and xarelto - Angiography 09/05/18 showed Infrapopliteal Artery Stenosis Left , severe ASPVD with occluded stent. No reasonable endovascular options. - STAT vein mapping bilateral LE ordered - Will obtain and review angio images with Dr. Saraiba to assess possibility of bypass based on distal target Chief Complaint/Reason for Visit: LLE pain History of Present Illness: Tristin Powell is a 78 y.o. male with history of PAD, CAD, prostate cancer presents as a transfer from [place] for concerns for left lower extremity pain and discoloration that has progressivley worsened. He has had pain and claudication symptoms for years which prompted him to to be seen 08/09 were he had ballooning and stent placement to left popliteal. He represented 1/3 with increased LLE pain that was never really helped by the stent. Pain doesn't allow him sleep. While at the [facility] he was planned to undego intervention the day of transfer but requested [facility] transfer for second opinion. Review of Systems: [...] 09/05/2018 Physician(s): Ben Hahn MD Cath #: [id number] Ref. 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 Dyslipidemia: Yes Hypertension: Yes Pre-OP Diagnosis/Indication: Atchison Class/Limb Ischemia: 4 - Ischemic rest pain [...] amputation COMMENTS: No Complications ____ Equipment: Sheath(s) [employer] 5F 10CM PINNACLE SHEATH TIME PLUS Q 6F 45CM .038 FLEXOR CHECKFLO ANSEL1 SHEATH Wire(s) [employer] .035 X 150CM FIXED J WIRE Catheter(s) [employer] 5F MP TEMPO AQUA CATHETER Other TIME PLUS Q .035 CXI ANGLED SUPPORT CATHETERS SHER VASCULAR 6F PROGLIDE CLOSURE Peripheral Angiography: Access site: Femoral Right Retrograde arterial with ultrasound guidance Non Selective: Aorta with ilio-fem runoff Selective: Tibioperoneal artery, retrograde - left See Nursing Notes for further details Signed By Ben Hahn MD On 09/05/2018 3:50:45 PM [place], Ben uHerta MD ____ Ultrasound Duplex Arterial Leg Left Result Date: 09/05/2018 Non-Invasive Vascular Patient: SHERRY aBzan [facility] Rec#: [id number] (Age): 1940(78y) Study Date: 09/05/2018 Room#: G93 Type: Inpatient Sex: M Reading: Pierce Moreau DO, RPVI Referring: LEVY Binder Technician: Rima Celestin RDCS, RVT Binder Technician: Deena Pelayo RDCS RVT Procedure Info: [id number] Study Quality: Lower Arterial Duplex: adequate Diagnosis: [...] PSV Name Value Units EIA 83.2 cm/sec INSPECTOR MOTOR VEHICLES 95.6 cm/sec Profunda 85.5 cm/sec SFA - prox -25 cm/sec SFA - mid -67.2 cm/sec SFA - dist 58.2 cm/sec Popliteal - dist 0 cm/sec NEWS CONTENT SPECIALIST 6.8 cm/sec Pre Stenosis #1 9.3 cm/sec [...] Esau Alejandro MD General Surgery PGY-1 Pager [phone] *After 5pm, or on weekends, page [phone]* Associated attestation - Mohsen Sarabia MD - 09/06/2018 4:46 PM EST Patient seen and examined. I have personally reviewed all pertinent labs, radiological studies and records. I have personally examined the patient and agree with resident/SHRUB GROWER/PA assessment and plan with the following additional [...] Order(s): IP CONSULT TO CARDIOLOGY [facility] Heart & Vascular Physicians Name: Tristin Powell Age: 78 y.o. Date: September 05, 2018 ASSESSMENT & PLAN: Critical lower limb ischemia Assessment & Plan Pt s/p LLE critical limb ischemia Atchison class 4 rest pain with distal discoloration to his toes. Pt is s/p L pop angioplasty with stent placement 08/09 at [facility] in [place], [place]. Pt was placed on Xarelto and [...] artery disease involving coronary bypass graft of eyak heart without angina pectoris Assessment & Plan [...] ischemia. Pt s/p LLE critical limb ischemia Atchison class 4 rest pain. Pt is s/p L pop angioplasty with stent placement 08/09 at [facility] in [facility] with Dr. Vogt. Pt was placed on Xarelto and ASA. Pt represented to [facility] 08/30 with increased LLE pain. Pt was scheduled to have a vascular surgical procedure at [facility] in [facility] and requested to be tx to [facility]. PAST MEDICAL HISTORY: Past Medical History: Diagnosis [...] to contact me. Respectfully, Yasmeen Diaz, MSN, SHRUB GROWER-C [facility] Heart and Vascular Physicians Associated attestation - Campos Guerra MD - 09/05/2018 11:01 AM EST [facility] Heart & Vascular Physicians Vascular Staff: I saw and evaluated the patient with vascular team during inpatient rounds. I discussed the harper findings and I agree with assessment and plan as documented by our vascular NEON SIGN MECHANIC. Mr. Tristin Powell is a 78 y.o. with male left lower extremity acute on chronic limb ischemia (Atchison grade 1 viable limb): Patient is a [...] you for consulting vascular. Raulito Guerra MD FACP [facility] V[facility] Heart and Vascular 09/05/18 10:54 [...] assistance Transfers Sit to Stand: Contact guard Director Inbound Sales: Wheeled walker Gait/Locomotion Gait Assistance: Contact guard Assistive Device: Wheeled walker Distance: 5 Feet Pattern: L decreased step length Weight Bearing Status: Able to maintain, Non-weight bearing Home Living Type of Home: House Home Layout: One level Home Equipment: Walker, Wheeled Walker, Wheelchair-electric Prior Level of Function Level of [place]: Independent with ADLs and functional transfers, Independent with homemaking with ambulation Lives With: Alone Receives Help From: Family 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 Procedure: LEFT MIDFOOT AMPUTATION; Surgeon: Flynn Mann DPM; Location: [facility] OR; Service: Podiatry ANKLE SURGERY Left BYPASS PERONEAL FEMORAL Right 09/07/2018 Procedure: BYPASS PERONEAL FEMORAL, RIGHT SAPHENOUS VEIN HARVEST, COMPLETION ANGIOGRAM; Surgeon: Mohsen Sarabia MD; Location: [facility] OR; Service: Cardiovascular CARDIAC CATHETERIZATION Left 09/05/2018 Procedure: Angio Lower Extremity; Surgeon: Ben Hahn MD; Location: [facility] TELEVISION CABINET FINISHER; Service: Cardiovascular CARDIAC SURGERY 2017 triple bypass [...] roles. 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 The patient's compliance is a hand fretted instrument maker and awareness of own capacity and performance is a hand fretted instrument maker to return to prior level of function. [...] Wheelchair-electric Prior Level of Function Level of [place]: Independent with ADLs and functional transfers, Independent with homemaking with ambulation Lives With: Alone Receives Help From: Family 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 Procedure: LEFT MIDFOOT AMPUTATION; Surgeon: Flynn Mann DPM; Location: [facility] OR; Service: Podiatry ANKLE SURGERY Left BYPASS PERONEAL FEMORAL Right 09/07/2018 Procedure: BYPASS PERONEAL FEMORAL, RIGHT SAPHENOUS VEIN HARVEST, COMPLETION ANGIOGRAM; Surgeon: Mohsen Sarabia MD; Location: [facility] OR; Service: Cardiovascular CARDIAC CATHETERIZATION Left 09/05/2018 Procedure: Angio Lower Extremity; Surgeon: Ben Hahn MD; Location: [facility] TELEVISION CABINET FINISHER; Service: Cardiovascular CARDIAC SURGERY 2017 triple bypass EYE SURGERY Right 2014 FOOT SURGERY ORTHOPEDIC SURGERY STENT PLACEMENT For [...] Tristin Powell Admit Date: 2060905 MR #: [id number] : 1940 Physicians: Flash Lovelace MD (Family); [...] 7.7/24.1 at which time he was in [facility]. At that time he was found to [...] MIDFOOT AMPUTATION; Surgeon: Flynn Mann DPM; Location: [facility] OR; Service: Podiatry ANKLE SURGERY Left BYPASS PERONEAL FEMORAL Right 09/07/2018 Procedure: BYPASS PERONEAL FEMORAL, RIGHT SAPHENOUS VEIN HARVEST, COMPLETION ANGIOGRAM; Surgeon: Mohsen Sarabia MD; Location: [facility] OR; Service: Cardiovascular CARDIAC CATHETERIZATION Left 09/05/2018 Procedure: Angio Lower Extremity; Surgeon: Ben Hahn MD; Location: [facility] TELEVISION CABINET FINISHER; Service: Cardiovascular CARDIAC SURGERY 2017 triple bypass [...] complete resolution. Findings suggestive of underlying COPD. YASHIRA/ Workstation ID: [id number] Us Doppler Ankle/brachial Index Result Date: 09/10/2018 Non-Invasive Vascular Patient: SHERRY Bazan [facility] Rec#: [id number] (Age): 1940(78y) Study Date: 09/10/2018 Room#: 8506 Type: Inpatient Sex: M Reading: [place] Reading: Ben Hahn MD, RPVI Referring: Esau Alejandro Binder Technician: Andre Madrid RDCS/INOCENCIO Procedure Info: [id number] Study Quality: Lower Arterial Doppler: adequate Diagnosis: [...] 10/08/2018 REPORT Patient: SHERRY Bazan [facility] Rec#: [id number] (Age): 1940(78y) Height: 188(cm)/73(in) Study Date: 10/08/2018 Weight: 99(kg)/218(lbs) Room#: 2456 BSA: [id number] Type: Inpatient Loc: [facility] Echo Lab Sex: M Reading: MD Nikhil Davalos Referring: AARON CHOI DANIEL Clasp Machine Operator: Geovani Matson [facility], RVT History: Hyperlipidemia Hypertension. Valvular disease. Diagnosis: ICD-10-PCS Encounter for preprocedural cardiovascular examination (Z01.810) Cardiac Complications, not classified (997.1) CPT Code(s): ECHO COMPLETE W/ DOPPLER (77002) HCPCS Code C8923 Echo Full w/ contrast. [...] 0.9) PV peak gradient 3.23 mmHg none KS end-diastolic Vmax 1.41 m/sec none PA end-diastolic pressure 12.95 mmHg none PV acceleration time 77 msec none Electronically Signed at 10/08/2018 17:26:05 by: Emmanuel Connor MD [facility] Xr Ankle Left 3+ Views (standard) [...] of the distal fibula. Extensive vascular calcifications. TIME PLUS Q/[place] Workstation ID: [id number] Xr Foot Left 2 [...] the midfoot Chopart articulations. Surgical drain present. /up health system Workstation ID: [id number] Xr Foot Left 3+ Views (standard) Result [...] is clinically warranted, consider MRI or CT. [facility]/dbg Workstation ID: [id number] Xr Foot Left 3+ [...] of the distal fibula. Extensive vascular calcifications. WTW/[place] Workstation ID: [id number] Assessment Detail: Associated attestation [...] further. Associated Order(s): IP CONSULT TO [facility] CONSULT[facility] NOTE Patient Name: Tristin Powell : 1940 MR #: [id number] Admit Date: 2060905 Physicians: Flash Lovelace MD (Family); Flynn Mann, Torres (Referring) Tristin Powell is a 78 y.o. male patient of Flash Lovelace MD with history of PAD, CAD and HTN that presented to [place] with need for left foot partial amputation. [...] primary Qureshi Catheter: none Disposition Discharge Location: [facility] Estimated Discharge Date: TBD Outpatient Testing: none Chief Complaint: HMS consulted by Flynn Mann DPM for medical management History of Present Illness: This is a 78 y/o male with past medical history of PAD, CAD and HTN that presented to [place] with need for left foot partial amputation. [...] COMPLETION ANGIOGRAM; Surgeon: Mohsen Sarabia MD; Location: [facility] OR; Service: Cardiovascular CARDIAC CATHETERIZATION Left 09/05/2018 Procedure: Angio Lower Extremity; Surgeon: Ben Hahn MD; Location: [facility] TELEVISION CABINET FINISHER; Service: Cardiovascular CARDIAC SURGERY STENT PLACEMENT Family [...] Information Primary Caregiver: Self Accompanied by/Relationship: none Rastafarian/Cultural Factors: none Legal Documentation Advance Directives: (none) Resuscitation Status: Resuscitate Resources Financial Resources: Other (Comment)([employer] Medicare insurance confirmed) Community Resources: Other (Comment)(PCP Dr. Lovelace [phone]) Discharge Plan Shared UM/CC and RN Source of Information: Patient Contact Phone Number: emergency contact Amian Zaidi p:[phone] Living Arrangements: Alone Support Systems: Family members Functional Status: Independent Type of Residence: Private residence(1 floor plan) Prior to Admission Home Care Services: Yes Type of Current Home Care Services: Home health care Current Agency Name: [facility] Current Home Equipment: Walker, Wheeled walker, Toilet seat car rental manager, Tub/Shower chair Insurance Coverage for Prescriptions: Yes [...] if he needs HH services for discharge. Omar ph# [phone] / fx# [phone] Called agency and left a message requesting a return phone call to [phone] to confirm services. Faxed HH bundle to [...] Associated Order(s): ECG 12-LEAD ED PROVIDER NOTE [facility] EMERGENCY DEPARTMENT NAME: Tristin Powell AGE: 78 y.o. : 1940 VISIT DATE: 09/04/2018 CSN: [id number] PCP: Flash Lovelace MD Chief Complaint Patient presents with Blood Clot HPI Patient transferred from [facility] for left leg peripheral arterial disease and [...] the family requested to be transferred to [place] for a second opinion. Accepted by the [...] ST segments normal QRS axis: normal normal KS interval normal QRS interval QT Interval: 474 [...] Referral note: Call from Dann Chairez MD [phone] Contact Role: Referring Provider Entered By: KULDEEP Bailey Dr states patient admitted / for left claudication and threatened limb. States patient was seen 08/09 for left foot pain and had angioplasty with stent placement to left popliteal. Pt started on Xarelto and ASA and discharged. Returned 1/3 for increased left foot and leg pain. No pulses. Pt was to have gone for vascular procedure today, but patient and family are now requesting transfer to a larger hospital and are requesting [place]. Call to KULDEEP Reynolds [phone] Contact Role: Nurse Entered By: KULDEEP Bailey [...] arrival: Ambulance Comments: Life Support/ referral SHERRY/ Maria Antonia in this encounter Plan of Care - [...] Note Multiple surgical sites from 09/07. Incisions POLLY with minimal bruising noted at sites. Intact, approximated incisions. Temperature WNL. Will continue to monitor. TRISTIN POWELL [id number] 1940 DATE 09/07/2018 OPERATIVE REPORT SURGEON MOHSEN SARABIA MD FILTERATION OPERATOR BEN JIANG MD PREOPERATIVE DIAGNOSIS Subacute limb ischemia of the left lower extremity. POSTOPERATIVE DIAGNOSIS Subacute limb ischemia of the left lower extremity. PROCEDURE PERFORMED Left femoral to peroneal bypass using contralateral reverse greater saphenous vein. FILTERATION OPERATOR There was no qualified resident available to [...] cc. MOHSEN SARABIA MD D 09/09/2018 10:46 [id number] 09/09/2018 14:36 JPW/MODL Brief Post Operative Note Patient Name: Tristin Powell : 1940 (78 y.o.) Date of Service: 09/04/2018 - 09/08/2018 [facility]: [id number] Procedure(s): BYPASS PERONEAL FEMORAL, RIGHT SAPHENOUS VEIN HARVEST, COMPLETION ANGIOGRAM Pre-Operative Diagnoses: * acute left lower extremity ischemia Post-Operative Diagnoses: * Same as Pre-Op Diagnosis Surgeon(s) and Role: * Mohsen Sarabia MD - Primary * Ben Jiang MD - Assisting Anesthesiologist: Natalie Vieira MD; Andrew Topete MD 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: Megan Arguelles RN; Odessa Cuellar RN 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 Relief: Sakshi Silvestre RN; Ben Calvillo RN; [...] Implant Name Type Inv. Item Serial No. 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 Lot No. LRB No. 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 Pt was placed on Xarelto and [...] vehicle. [facility] Called report to Chelsea Salinas RN at the [facility] at [place]. Patient to follow-up GI outpatient. Patients pain [...] follow with Dr. Mann as out-patient at [facility] at [phone] next 10-18-18. Flynn Mann DPM, FACFAS Electronically signed by the above physician 10/09/18 POC went over and updated, will continue to monitor. TRISTIN POWELL [id number] 1940 DATE 10/08/2018 OPERATIVE REPORT SURGEON FLYNN MANN DPM FILTERATION OPERATOR OFE WOOD DPM, RESIDENT ANESTHESIOLOGIST MACHELLE SARABIA MD PREOPERATIVE DIAGNOSIS Left foot gangrene. POSTOPERATIVE DIAGNOSIS Left foot gangrene. PROCEDURES 1. 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 Left Tendo-Achilles lengthening 3. Left [...] extremity. Dictated by OFE WOOD DPM, RESIDENT SHIRLEY RODRIGUEZ 10/08/2018 08:53 [id number] T 10/08/2018 09:15 /ADAL Brief Post Operative Note Patient Name: Tristin Powell : 1940 (78 y.o.) Date of Service: 10/08/2018 CSN: [id number] Procedure(s): 1. TENDO ACHILLES LENGTHENING, LEFT 2. LEFT MIDFOOT AMPUTATION Pre-Operative Diagnoses: * LEFT FOOT GANGRENE Post-Operative Diagnoses: * SAME Surgeon(s) and Role: * Flynn Mann DPM - Primary * Ofe Wood DPM - Resident - Assisting Anesthesiologist: Machelle Sarabia MD [employer] FIELD SUPERVISOR: Nikia Mcdermott CRNA 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: Sussy Hoskins RN Relief Scrub: Wagner Qureshi [...] Flash Lovelace MD Primary Care Provider Active ELIZABETH PittmanC Attending Provider Active Top Lift Compresser Relationship Specialty Start Date End Date Flash Lovelace MD [address] [place] [address] PCP - General Family Medicine 07/31/18 Top Lift Compresser Relationship Specialty Start Date End Date Flash Lovelace MD [address] [place] [address] PCP - General Family Medicine 07/31/18 Top Lift Compresser Relationship Specialty Start Date End Date Flash Lovelace MD [address] [place] [address] PCP - General Family Medicine 09/04/18 Top Lift Compresser Relationship Specialty Start Date End Date Flash Lovelace MD [address] [place] [address] PCP - General Family Medicine 07/31/18 Top Lift Compresser Relationship Specialty Start Date End Date Flash Lovelace MD [address] [place] [address] PCP - General Family Medicine 09/04/18 Top Lift Compresser Relationship Specialty Start Date End Date Flash Lovelace MD [address] [place] [address], [place] [address] PCP - General Family Medicine 09/04/18 Top Lift Compresser Relationship Specialty Start Date End Date Flash Lovelace MD [address] [place] [address] PCP - General Family Medicine 09/04/18 Top Lift Compresser Relationship Specialty Start Date End Date Flash Lovelace MD [address] [place] [address], [place] [address] PCP - General Family Medicine 09/04/18 Top Lift Compresser Relationship Specialty Start Date End Date Flash Lovelace MD [address] [place] [place] [address] [place] [address] PCP - General Family Medicine 09/04/18 Team Status: Inactive Member Role Status Dates Flash Lovelace MD Primary Care Provider Active Cristian Beaver MD Attending Provider Active Top Lift Compresser Relationship Specialty Start Date End Date Flash Lovelace MD [address] [facility] [place] [address] PCP - General Family Medicine 09/04/18 Top Lift Compresser Relationship Specialty Start Date End Date Flash Lovelace MD [address] [place] [address] PCP - General Family Medicine 07/31/18 Top Lift Compresser Relationship Specialty Start Date End Date Flash Lovelace MD [address] [place] [address] PCP - General Family Medicine 07/31/18 Top Lift Compresser Relationship Specialty Start Date End Date Flash Lovelace MD [address] [place] [address], [place] [address] PCP - General Family Medicine 09/04/18 Top Lift Compresser Relationship Specialty Start Date End Date Flash Lovelace MD [address] [facility] [place] [address] PCP - General Family Medicine 09/04/18 Top Lift Compresser Relationship Specialty Start Date End Date Flash Lovelace MD [address] [place] [address] PCP - General Family Medicine 09/04/18 System, Provider Not In Central Service Tech 11/09/22 Top Lift Compresser Relationship Specialty Start Date End Date Flash Lovelace MD [address] [place] [place] [address] [place] [address] PCP - General Family Medicine 09/04/18 System, Provider Not In Central Service Tech 11/09/22 Top Lift Compresser Relationship Specialty Start Date End Date Flash Lovelace MD [address] [place] [address] PCP - General Family Medicine 09/04/18 System, Provider Not In Central Service Tech 11/09/22 Top Lift Compresser Relationship Specialty Start Date End Date Flash Lovelace MD [address] [place] [address] PCP - General Family Medicine 07/31/18 Top Lift Compresser Relationship Specialty Start Date End Date Flash Lovelace MD [address] [place] [address] PCP - General Family Medicine 07/31/18 Team [...] October 17, 2023 End: October 17, 2023 Top Lift Compresser Relationship Specialty Start Date End Date Flash Lovelace MD [address] [facility] [address] [place] [address] PCP - [employer] 08/28/17 Flash Lovelace MD [address] [facility] [address] [place] [address] PCP - General Family Medicine 03/09/23 Top Lift Compresser Relationship Specialty Start Date End Date Flash Lovelace MD [address] [place] [address] PCP - [employer] 08/28/17 Flash Lovelace MD [address] [place] [address] PCP - General Family Medicine 03/09/23Monday, Mary, INSTRUCTOR DANCING [address] [place] [address] Licensed Practical Nurse Family Medicine 06/21/24 Top Lift Compresser Relationship Specialty Start Date End Date Flash Lovelace MD [address] [place] [address] PCP - [employer] 08/28/17 Flash Lovelace MD [address] [place] [address] PCP - General Family Medicine 03/09/23Monday, Mary INSTRUCTOR DANCING [address] [place] [address] Licensed Practical Nurse Family Medicine 06/21/24 Top Lift Compresser Relationship Specialty Start Date End Date Flash Lovelace MD [address] [place] [address] PCP - General Family Medicine 09/04/18 System, Provider Not In Central Service Tech 11/09/22 Top Lift Compresser Relationship Specialty Start Date End Date Flash Lovelace MD [address] [place] [address] PCP - [employer] 08/28/17 Flash Lovelace MD [address] [place] [address] PCP - General Family Medicine 03/09/23 Top Lift Compresser Relationship Specialty Start Date End Date Flash Lovelace MD [address] [place] [address] PCP - [employer] 08/28/17 Flash Lovelace MD [address] [place] [address] PCP - General Family Medicine 03/09/23 Top Lift Compresser Relationship Specialty Start Date End Date Flash Lovelace MD [address] [place] [address] PCP - [employer] 08/28/17 Flash Lovelace MD [address] [place] [address] PCP - General Family Medicine 03/09/23MondayMary LPN [address] [place] [address] Licensed Practical Nurse Family Medicine 06/21/24 Top Lift Compresser Relationship Specialty Start Date End Date Flash Lovelace MD [address] [place] [address] PCP - General 08/15/13 Top Lift Compresser Relationship Specialty Start Date End Date Flash Lovelace MD [address] [place] [address] PCP - General 08/15/13 Top Lift Compresser Relationship Specialty Start Date End Date Flash Lovelace MD [address] [place] [address] PCP - [employer] 08/28/17 Flash Lovelace MD [address] [place] [address] PCP - General Family Medicine 03/09/23Monday, ISABELLA Hernandez [address] [place] [address] Licensed Practical Nurse Family Medicine 06/21/24 Top Lift Compresser Relationship Specialty Start Date End Date Flash Lovelace MD [address] [place] [address] PCP - [employer] 08/28/17 Flash Lovelace MD [address] [place] [address] PCP - General Family Medicine 03/09/23 Top Lift Compresser Relationship Specialty Start Date End Date Flash Lovelace MD [address] [place] [address] PCP - [employer] 08/28/17 Flash Lovelace MD [address] [place] [address] PCP - General Family Medicine 03/09/23 Top Lift Compresser Relationship Specialty Start Date End Date Flash Lovelace MD [address] [place] [address] PCP - [employer] 08/28/17 Flash Lovelace MD [address] [place] [address] PCP - General Family Medicine 03/09/23 Top Lift Compresser Relationship Specialty Start Date End Date Flash Lovelace MD [address] [place] [address] PCP - General Family Medicine 09/04/18 System, Provider Not In Central Service Tech 11/09/22 Top Lift Compresser Relationship Specialty Start Date End Date Flash Lovelace MD [address] [place] [address] PCP - [employer] 08/28/17 Flash Lovelace MD [address] [place] [address] PCP - General Family Medicine 03/09/23MonMichaelMary goodman LPN [address] [place] [address] Licensed Practical Nurse Family Medicine 06/21/24 Top Lift Compresser Relationship Specialty Start Date End Date Flash Lovelace MD [address] [place] [address] PCP - [employer] 08/28/17 Flash Lovelace MD [address] [place] [address] PCP - General Family Medicine 03/09/23 Lorraine Morgan, RN Licensed Practical Nurse Family Medicine 10/04/24 Top Lift Compresser Relationship Specialty Start Date End Date Flash Lovelace MD [address] [place] [address] PCP - [employer] 08/28/17 Flash Lovelace MD [address] [place] [address] PCP - General Family Medicine 03/09/23 Elaine Saab LPN 11/15/24 Top Lift Compresser Relationship Specialty Start Date End Date Flash Lovelace MD [address] [place] [address] PCP - [employer] 08/28/17 Flash Lovelace MD [address] [place] [address] PCP - General Family Medicine 03/09/23 [facility] 11/15/24 Top Lift Compresser Relationship Specialty Start Date End Date Flash Lovelace MD [address] [place] [address] PCP - [employer] 08/28/17 Flash Lovelace MD [address] [place] [address] PCP - General Family Medicine 03/09/23 [facility] 11/15/24 Top Lift Compresser Relationship Specialty Start Date End Date Flash Lovelace MD [address] [place] [address] PCP - [employer] 08/28/17 Flash Lovelace MD [address] [place] [address] PCP - General Family Medicine 03/09/23 [facility] 11/15/24 Top Lift Compresser Relationship Specialty Start Date End Date Flash Lovelace MD [address] [place] [address] PCP - [employer] 08/28/17 Flash Lovelace MD [address] [place] [address] PCP - General Family Medicine 03/09/23 [facility] 11/15/24 Top Lift Compresser Relationship Specialty Start Date End Date Flash Lovelace MD [address] [place] [address] PCP - [employer] 08/28/17 Flash Lovelace MD [address] [facility] [address] [place] [address] PCP - General Family Medicine 03/09/23 Elaine Saab, INSTRUCTOR DANCING [address] [facility] [address] [place] [address] 11/15/24 Team Status: Inactive Member Role Status [...] March 12, 2025 End: March 12, 2025 Top Lift Compresser Relationship Specialty Start Date End Date Flash Lovelace MD [address] [place], [place] [address] PCP - General Family Medicine 09/04/18 System, Provider Not In Central Service Tech 11/09/22 Top Lift Compresser Relationship Specialty Start Date End Date Flash Lovelace MD [address] [place] [address] PCP - General Family Medicine 09/04/18 System, Provider Not In Central Service Tech 11/09/22 Top Lift Compresser Relationship Specialty Start Date End Date Flash Lovelace MD [address] [place] [address] PCP - General Family Medicine 09/04/18 System, Provider Not In Central Service Tech 11/09/22 Top Lift Compresser Relationship Specialty Start Date End Date Flash Lovelace MD [address] [place] [address] PCP - General Family Medicine 09/04/18 System, Provider Not In Central Service Tech 11/09/22 Top Lift Compresser Relationship Specialty Start Date End Date Flash Lovelace MD [address] [place] [address] PCP - [employer] 08/28/17 Flash Lovelace MD [address] [place] [address] PCP - General Family Medicine 03/09/23 Elaine Saab LPN [address] [place] [address] 11/15/24 Top Lift Compresser Relationship Specialty Start Date End Date Flash Lovelace MD [address] [place] [address] PCP - General Family Medicine 09/04/18 System, Provider Not In Central Service Tech 11/09/22 Top Lift Compresser Relationship Specialty Start Date End Date Flash Lovelace MD [address] [place] [address] PCP - [employer] 08/28/17 Flash Lovelace MD [address] [place] [address] PCP - General Family Medicine 03/09/23 Elaine Saab LPN [address] [place] [address] 11/15/24 Top Lift Compresser Relationship Specialty Start Date End Date Flash Lovelace MD [address] [place] [address] PCP - [employer] 08/28/17 Flash Lovelace MD [address] [place] [address] PCP - General Family Medicine 03/09/23 Elaine Saab LPN [address] [place] [address] 11/15/24 Top Lift Compresser Relationship Specialty Start Date End Date Flash Lovelace MD [address] [place] [address] PCP - [employer] 08/28/17 Flash Lovelace MD [address] [place] [address] PCP - General Family Medicine 03/09/23 Elaine Saab LPN [address] [place] [address] 11/15/24 Top Lift Compresser Relationship Specialty Start Date End Date Flash Lovelace MD [address] [place] [address] PCP - [employer] 08/28/17 Flash Lovelace MD [address] [place] [address] PCP - General Family Medicine 03/09/23 Elaine Saab LPN [address] [place] [address] 11/15/24 Top Lift Compresser Relationship Specialty Start Date End Date Flash Lovelace MD [address] [place] [address] PCP - [employer] 08/28/17 Flash Lovelace MD [address] [place] [address] PCP - General Family Medicine 03/09/23 Elaine Saab LPN [address] [place] [address] 11/15/24 Top Lift Compresser Relationship Specialty Start Date End Date Flash Lovelace MD [address] [place] [address] PCP - [employer] 08/28/17 Flash Lovelace MD [address] [place] [address] PCP - General Family Medicine 03/09/23 Elaine Saab LPN [address] [place] [address] 11/15/24 Top Lift Compresser Relationship Specialty Start Date End Date Flash Lovelace MD [address] [place] [address] PCP - General Family Medicine 09/04/18 System, Provider Not In Central Service Tech 11/09/22 Top Lift Compresser Relationship Specialty Start Date End Date Flash Lovelace MD [address] [place] [address] PCP - [employer] 08/28/17 Flash Lovelace MD [address] [place] [address] PCP - General Family Medicine 03/09/23 Elaine Saab LPN [address] [place] [address] 11/15/24 Scheduled Active and Recently Administ ered [...] Mosquera RN)1415 (Given - Provider: Alma Delia Page RN) losartan (COZAAR) tablet 50 mg 50 mg, Oral, Daily with lunch, First dose on Mon01/19/22 at 1200 1224 (Given - Provider: Violetta Stuart RN) 1218 (Given - Provider: Rafaela Negron RN) 1235 (Given - Provider: Alma Delia Page RN) metoprolol tartrate (LOPRESSOR) tablet 50 mg 50 mg, Oral, 2 times daily, First dose on Mon01/19/22 at 0900 0951 (Given - Provider: Maude Vallejo RN)2020 (Given - Provider: Kiesha Mosquera RN) 0932 (Given - Provider: Rafaela Negron RN)203 (Given - Provider: Kiesha Mosquera RN) 0950 (Given - Provider: Alma Delia Page RN) pantoprazole (PROTONIX) EC tablet 40 mg 40 mg, Oral, Daily, First dose on Mon01/19/22 at 0900, DO NOT CRUSH OR CHEW. 0951 (Given - Provider: Madue Vallejo RN) 0932 (Given - Provider: Rafaela [...] Rafaela Negron RN)2233 (Given - Provider: Kiesha Mosquera, KULDEEP) 0615 (Given - Provider: Kiesha Mosquera, KULDEEP)1400 (Not Given - Provider: Alma Delia Page, KULDEEP - Reason: Contraindicated) tiotropium bromide (SPIRIVA RESPIMAT) 2.5 mcg/actuation inhaler 2 puff 2 puff, Inhalation, Daily (RT), First dose on Mon01/19/22 at 1900 2220 (Given - Provider: Kiesha Mosquera RN) 0932 (Given - Provider: Rafaela Negron RN) 0951 (Given - Provider: Alma Delia Page, KULDEEP) vancomycin (VANCOCIN) 1750 mg in sodium chloride 0.9% (NS) 500 mL IVPB 1,750 mg, Intravenous, at 250 mL/hr, Every 18 hours, First dose (after last modification) on Prerna 01/20/22 at 1215, Indication: Cellulitis Not Responding to Beta-lactams 1223 (New Bag - Provider: Rafaela Negron RN)1430 (Stopped - Provider: Rafaela Negron RN) 0726 (New Bag - Provider: Kiesha Mosquera RN) PRN Medication Order 01/19/2022 01/20/2022 01/21/2022 acetaminophen (TYLENOL) tablet 650 mg 650 mg, Oral, Every 4 hours PRN, mild pain, fever 100.4 F or greater, headaches, Starting on Mon01/19/22 at 0008 2020 (Given - Provider: Kiesha Mosquera RN) iopamidoL (ISOVUE-370) 76 % injection 125 mL [...] For 3 doses, Anginal pain, may repeat [id number] x3, then notify physician. DO NOT CRUSH [...] RN)2220 (Given - Provider: Kiesha Mosquera RN) 0658 (Given - Provider: Kiesha Mosquera RN)1218 (Given - Provider: Rafaela Negron RN)2111 (Given - Provider: Kiesha Mosquera RN) oxymetazoline (AFRIN) 0.05 % nasal spray 2 [...] mL, Intravenous, Once in imaging, contrast, Per truck repair supervisor (Radiology) for line patency check prior to contrast administration, Starting on Mon01/19/22 at 0048, For 1 dose sodium chloride (PF) (NS) 0.9 % contrast line flush 80 mL(Linked Group 4) 80 mL, Intravenous, Once in imaging, contrast, Per truck repair supervisor (Radiology), Starting on Mon01/19/22 at 0048, For [...] mL, Intravenous, Once in imaging, contrast, Per truck repair supervisor (Radiology) for line patency check prior to contrast administration, Starting on Mon01/19/22 at 0048, For 1 dose And sodium chloride (PF) (NS) 0.9 % contrast line flush 80 mLJump to med 80 mL, Intravenous, Once in imaging, contrast, Per truck repair supervisor (Radiology), Starting on Mon01/19/22 at 0048, For [...] Reason: Patient/family refused)1017 (Given - Provider: Mirta Huerta RN) sodium chloride (PF) (NS) flush 5 mL(Linked Group 1) 5 mL, Intravenous, Every 8 hours scheduled, First dose on Mon04/15/22 at 0200, Saline lock 0200 (Canceled Entry - Provider: Mane Akins RN)0600 (Canceled Entry - Provider: Mane Akins RN)1014 (Given - Provider: Mirta Huerta RN)1400 (Not Given - Provider: Mirta Huerta RN - Reason: Other) PRN Medication Order 04/13/2022 04/14/2022 04/15/2022 acetaminophen (TYLENOL) tablet 650 mg 650 mg, Oral, Every 4 hours PRN, mild pain, fever 100.4 F or greater, headaches, Starting on Mon04/15/22 at 0101 albuterol inhaler 2 puff 2 puff, Inhalation, Every 4 hours PRN, wheezing, shortness of breath, Starting on Mon04/15/22 at 010, SPACER REQUIRED FOR ADMINISTRATION iopamidoL (ISOVUE-370) 76 % injection 125 mL (COMPLETED) 125 mL, Intravenous, Once in imaging, contrast, Starting on Prerna 04/14/22 at 2110, For 1 dose 2129 (Contrast Administered - Provider: Beena Yates, TECHNOLOGIST) iopamidoL (ISOVUE-370) 76 % injection 75 mL 75 mL, Intravenous, Once in imaging, contrast, Starting on Prerna 04/14/22 at 0, For 1 dose naloxone (NARCAN) injection 0.1 [...] (See Alternativ e - Provider: Mane Akins RN)142 (See Alternative - Provider: Mirta Huerta RN)1910 (See Alternative - Provider: Lizz Damon RN) ondansetron (ZOFRAN-ODT) disintegrating tablet 4 mg(Linked Group 3) 4 mg, Oral, Every 6 hours PRN, nausea, vomiting, Starting on Mon04/15/22 at 0101, Use oral route first, if tolerated. Formulation requires tablet remain in sealed package until immediately prior to dose being administered. 0614 (Given - Provid er: Mane Akins RN)1421 (Given - Provider: Mirta Huerta RN)1910 (Given - Provider: Lizz Damon RN) oxyCODONE-acetaminophen (PERCOCET) 5-325 mg per tablet 1 tablet 1 tablet, Oral, Every 6 hours PRN, moderate to severe pain, Starting on Mon04/15/22 at 0101 0126 (Given - Provid er: Mane Akins RN) sodium chloride (PF) (NS) 0.9 % contrast line flush 10 mL (COMPLETED) 10 mL, Intravenous, Once in imaging, contrast, Per truck repair supervisor (Radiology) for line patency check prior to contrast administration, Starting on Prerna 04/14/22 at 2110, For 1 dose 2131 (Given - Provider: Beena Yates, TECHNOLOGIST) sodium chloride (PF) (NS) 0.9 % contrast line flush 80 mL (COMPLETED) 80 mL, Intravenous, Once in imaging, contrast, Per truck repair supervisor (Radiology), Starting on Mon04/14/22 at 2110, For 1 dose, 30 mL BEFORE contrast administration 50 mL AFTER contrast administration 2130 (Given - Provider: Beena Yates, TECHNOLOGIST) sodium chloride (PF) (NS) flush 5 mL(Linked Group 4) 5 mL, Intravenous, As needed, line care, Starting on Mon04/14/22 at 1942 sodium chloride (PF) (NS) flush 5 mL(Linked Group 1) 5 mL, Intravenous, As needed, line care, Starting on Mon04/15/22 at 0101 sodium chloride 0.9% (NS)(Linked Group 4) 0-150 mL/hr, Intravenous, As needed, To flush line after IV infusions when no maintenance IV ordered or a compatibility issue. Infuse 20ml at the same rate as the secondary infusion, Starting on Mon04/14/22 at 1942, Run as Primary IV. NOT [...] peripheral IV (COMPLETED) KAJAL, Once, On Prerna 04/14/22 at 1945, For 1 occurrence And Saline lock IV (CANCELED) KAJAL, Once, On Prerna 04/14/22 at 1945, For 1 occurrence And sodium chloride (PF) (NS) flush 5 mLJump to med 5 mL, Intravenous, As needed, line care, Starting on Prerna 04/14/22 at 1942 And sodium chloride 0.9% (NS)Jump to med 0-150 mL/hr, Intravenous, As needed, To flush line after IV infusions when no maintenance IV ordered or a compatibility issue. Infuse 20ml at the same rate as the secondary infusion, Starting on Prerna 04/14/22 at 1942
Run as Primary IV. NOT intended for KVO.
Scheduled Medication Order 11/06/2022 11/07/2022 11/08/2022 aspirin chewable tablet 81 mg 81 mg, Oral, Daily, First dose on Mon11/04/22 at 0900 0834 (Given - Provider: Terri Mackenzie RN) 0859 (Given - Provider: Cara Dorado RN) 0928 (Given - Provider: Andree Agarwal, KULDEEP) atorvastatin (LIPITOR) tablet 40 mg 40 mg, Oral, Nightly, First dose on Mon11/04/22 at 2100 2020 (Given - Provider: Meir Nath RN) 2022 (Given - Provider: Meir Nath, KULDEEP) benzonatate (TESSALON) capsule 100 mg 100 mg, Oral, 3 times daily, First dose (after last reorder) on Mon11/04/22 at 1045, DO NOT CRUSH OR CHEW. 0834 (Given - Provider: Terri Mackenzie RN)1659 (Given - Provider: Terri Mackenzie RN)2020 (Given - Provider: Meir Nath RN) 0859 (Given - Provider: Cara Dorado RN)1556 (Given - Provider: Cara Dorado RN)2022 (Given - Provider: Meir Nath, KULDEEP) 0928 (Given - Provider: Andree Agarwal, KULDEEP) budesonide-formoteroL (SYMBICORT) 160-4.5 mcg/actuation inhaler 2 puff(Linked Group 1) 2 puff, Inhalation, 2 times daily (RT), First dose on Prerna 11/03/22 at 2230 0836 (Given - Provider: Terri Mackenzie RN)2019 (Given - Provider: Meir Nath RN) 0904 (Given - Provider: Cara Dorado RN)2024 (Given - Provider: Meir Nath RN) 0929 (Given - Provider: Andree Agarwal, KULDEEP) cefePIMe-dextrose (MAXIPIME) 2 gram/50 mL IVPB 2,000 mg 2,000 mg, Intravenous, at 100 mL/hr, Every 12 hours, First dose on Mon11/04/22 at 1000, Indication: HAP/VAP 1138 (New Bag - Provider: Terri Mackenzie RN)2247 (New Bag - Provider: Meir Nath RN)2252 (Paused - Provider: Meir Nath RN)2253 (Restarted - Provider: Meir Nath, RN)2319 (Stopped - Provider: Meir Nath, KULDEEP) 1139 (New Bag - Provider: Cara Dorado RN)2138 (New Bag - Provider: Meir Nath, KULDEEP) 1037 (New Bag - Provider: Andree Agarwal, KULDEEP) docusate sodium (COLACE) capsule 100 mg 100 mg, Oral, Daily, First dose on Mon11/07/22 at 1900, Hold for loose stools DO NOT CRUSH OR CHEW. 1835 (Given - Provider: Cara Dorado RN) 0928 (Given - Provider: Andree Agarwal, KULDEEP) furosemide (LASIX) injection 20 mg (CANCELED) 20 mg, Intravenous, 2 times daily before meals, First dose on Mon11/04/22 at 0730 0833 (Given - Provider: Terri Mackenzie RN)1659 (Given - Provider: Terri Mackenzie RN) 0900 (Given - Provider: Cara Dorado RN) furosemide (LASIX) tablet 20 mg 20 mg, Oral, Daily, First dose on Mon11/08/22 at 0900 0928 (Given - Provider: Andree Agarwal, KULDEEP) ipratropium-albuteroL (DUO-NEB) 0.5-2.5 mg/3 ml nebulizer solution 3 mL 3 mL, Inhalation, Every 6 hours scheduled (RT), First dose on Prerna 11/03/22 at 2230 0345 (Not Given - Provider: Gisella Pyle, MARINE SAFETY OFFICER - Reason: Patient/family refused - Comment: Patient doesn't want his treatment throughout the night)0800 (Not Given - Provider: Sussy Rocha, MARINE SAFETY OFFICER - Reason: Patient not available)1515 (Given - Provider: Andrew Milan, PHOTOGRAPHER STILL)2012 (Given - Provider: Claire Ireland, MARINE SAFETY OFFICER) 0200 (Not Given - Provider: Claire Ireland, MARINE SAFETY OFFICER - Reason: Patient/family refused)0828 (Given - Provider: Sussy Rocha, MARINE SAFETY OFFICER)1400 (Given - Provider: Sussy Rocha MARINE SAFETY OFFICER)2024 (Given - Provider: Claire Ireland, MARINE SAFETY OFFICER) 0200 (Not Given - Provider: Claire Ireland, MARINE SAFETY OFFICER - Reason: Patient/family refused)0800 (Not Given - Provider: Jesse Ferraro MARINE SAFETY OFFICER - Reason: Other - Comment: patient wanted [...] KULDEEP)2022 (Given - Provider: Meir Nath, KULDEEP) 0928 (Given - Provider: Andree Agarwal, KULDEEP) pantoprazole (PROTONIX) EC tablet 40 mg 40 mg, Oral, 2 times daily, First dose on Prerna 11/03/22 at 2230, DO NOT CRUSH OR CHEW. 0833 (Given - Provider: Terri Mackenzie RN)2019 (Given - Provider: Meir Nath RN) 0859 (Given - Provider: Cara Dorado, KULDEEP)2022 (Given - Provider: Meir Nath RN) 0928 (Given - Provider: Andree Agarwal, KULDEEP) perflutren lipid microspheres (DEFINITY) 0.143 mg/mL solution 0-10 mL of mixture (COMPLETED) 0-10 mL of mixture, Intravenous, Once, On Mon11/06/22 at 1215, For 1 dose, Prepare syringe by withdrawing 1.3 mL of perflutren (DEFINITY) from the 2ml vial. Further dilute the 1.3 mL of perflutren with Sodium Chloride (NS) 0.9% to total volume of 10 ml. Chart total ML OF MIXTURE given to patient. 1119 (Given - Provider: Peyman Rubio, KULDEEP) polyethylene glycol (MIRALAX) powder 17 g 17 g, Oral, Daily, First dose on Mon11/06/22 at 0900 1136 (Given - Provider: Terri Mackenzie RN) 0900 (Given - Provider: Cara Dorado, KULDEEP) 0929 (Given - Provider: Andree Agarwal, KULDEEP) rivaroxaban (XARELTO) tablet 2.5 mg 2.5 mg, Oral, 2 times daily, First dose (after last modification) on Mon11/04/22 at 0800, Must be given with food. Notify physician if patient refuses. If feeding tube administration, give only via tubes placed in the stomach., Indication: CAD/PAD 0833 (Given - Provider: Terri Mackenzie RN)2020 (Given - Provider: Meir Nath RN) 0859 (Given - Provider: Cara Dorado, KULDEEP)202 (Given - Provider: Meir Nath, KULDEEP) 0928 (Given - Provider: Andree Agarwal, KULDEEP) sodium chloride (OCEAN) 0.65 % nasal spray 1 spray 1 spray, Each Nare, 2 times daily, First dose (after last modification) on 11/07/22 at 2100, Upright delivers a spray; Horizontally a stream; Upside down a drop. 2100 (Not Given - Provider: Meir Nath RN - Reason: Patient/family refused) 0900 (Not Given - Provider: Andree Agarwal, KULDEEP - Reason: Other - Comment: pt states he uses as needed) sodium chloride (PF) (NS) flush 5 mL(Linked Group 2) 5 mL, Intravenous, Every 8 hours scheduled, First dose on Prerna 11/03/22 at 2230, Saline lock 0527 (Given - Provider: Misty Ponce RN)1659 (Given - Provider: Terri Mackenzie RN)2200 (Canceled Entry - Provider: Meir Nath RN) 0625 (Given - Provider: Meir Levakis, RN)1400 (Canceled Entry - Provider: Cara Dorado RN)2138 (Given - Provider: Meir Nath, KULDEEP) 0615 (Given - Provider: Meir Nath RN)1400 (Due) tiotropium bromide (SPIRIVA RESPIMAT) 2.5 mcg/actuation inhaler 2 puff(Linked Group 1) 2 puff, Inhalation, Daily (RT), First dose on Mon11/04/22 at 0900 0835 (Given - Provider: Terri Mackenzie RN) 0904 (Given - Provider: Cara Dorado RN) 0929 (Given - Provider: Andree Agarwal RN) PRN Medication Order 11/06/2022 11/07/2022 11/08/2022 aluminum-magnesium hydroxide-simethicone (MAALOX PLUS) 200-200-20 mg/5 mL suspension 30 mL 30 mL, Oral, Every 4 hours PRN, indigestion, Starting on Prerna 11/03/22 at 2228 ipratropium-albuteroL (DUO-NEB) 0.5-2.5 mg/3 ml nebulizer solution 3 mL 3 mL, Inhalation, Every 4 hours PRN (RT), shortness of breath, Starting on Prerna 11/03/22 at 2228 naloxone (NARCAN) injection 0.1 mg(Linked [...] nausea, vomiting, Starting on Prerna 11/03/22 at 2227, Use oral route first, if tolerated. 0712 (See Alternative - Provider: Meir Nath RN) ondansetron (ZOFRAN-ODT) disintegrating tablet 4 mg(Linked Group 4) 4 mg, Oral, Every 6 hours PRN, nausea, vomiting, Starting on Prerna 11/03/22 at 2227, Use oral route first, if tolerated. Formulation requires tablet remain in sealed package until immediately prior to dose being administered. 0712 (Given - Provider: Meir Nath RN) oxyCODONE-acetaminophen (PERCOCET) 5-325 mg per tablet 1 tablet 1 tablet, Oral, Every 4 hours PRN, moderate to severe pain, Starting on Mon11/04/22 at 1000 0525 (Given - Provider: Misty Ponce, KULDEEP)1253 (Given - Provider: Terri Mackenzie, KULDEEP)2242 (Given - Provider: Meir Nath RN) sodium chloride (OCEAN) 0.65 % nasal spray 1 spray (CANCELED) 1 spray, Each Nare, As needed, irritation, Starting on 11/05/22 at 1130, Upright delivers a spray; Horizontally a stream; Upside down a drop. 0835 (Given - Provider: Terri Mackenzie, KULDEEP) sodium chloride (PF) (NS) flush 5 mL(Linked Group 5) 5 mL, Intravenous, As needed, line care, Starting on Prerna 11/03/22 at 1326 sodium chloride (PF) (NS) flush 5 mL(Linked Group 2) 5 mL, Intravenous, As needed, line care, Starting on Prerna 11/03/22 at 2228 sodium chloride 0.9% (NS)(Linked Group 5) 0-150 mL/hr, Intravenous, As needed, To flush line after IV infusions when no maintenance IV ordered or a compatibility issue. Infuse 20ml at the same rate as the secondary infusion, Starting on Prerna 11/03/22 at 1326, Run as Primary IV. NOT [...] 100 mg, Oral, NOW, 1 dose, On Mon10/30/22 at 7968 9537 (Given - Provid er: Jose Panchal RN) ipratropium-albuterol (DUONEB) nebulizer solution 1 ampule 1 ampule, Inhalation, EVERY 4 HOURS WHILE AWAKE, First dose on 10/30/22 at 2000, Until Discontinued, Initiate RT Bronchodilator Protocol: No 1946 (Given - Provid er: Norma Fitzgerald RCP) methylPREDNISolone sodium (SOLU-MEDROL) injection 125 mg 125 mg, IntraVENous, DAILY, First dose on 10/30/22 at 1945 1940 (Given - Provid er: Jose Panchal RN) Scheduled Medication Order 10/28/2022 10/29/2022 10/30/2022 ipratropium-albuterol (DUONEB) nebulizer solution 1 ampule 1 ampule, Inhalation, EVERY 4 HOURS WHILE AWAKE, First dose on 10/30/22 at 2000, Until Discontinued, Initiate RT Bronchodilator Protocol: No 1946 (Given - Provid er: Norma Fitzgerald RCP) methylPREDNISolone sodium (SOLU-MEDROL) injection 125 mg 125 mg, IntraVENous, DAILY, First dose on 10/30/22 at 1940 (Given - Provid er: Jose Panchal RN) Scheduled Medication Order 03/19/2025 03/20/2025 03/21/2025 acetaminophen (TYLENOL) tablet 650 mg 650 mg, Oral, Every 4 hours while awake, First dose on Mon03/14/25 at 1500 0614 (Given - Provider: Jeremy Merchant RN)1126 (Given - Provider: Dashawn Cano RN)1431 (Given - Provider: Dashawn Cano RN)1816 (Given - Provider: Dashawn Cano RN)2117 (Given - Provider: Zenobia Clay RN) 0536 (Given - Provider: Zenobia Clay RN)1118 (Given - Provider: Kaylie Denny, KULDEEP)1400 (Hold - Provider: Kaylie Denny RN - Reason: Other - Comment: patient sleeping)1751 (Given - Provider: Kaylie Denny RN)2157 (Given - Provider: China Negro RN) 0550 (Given - Provider: China Negro RN)1111 (Given - Provider: Katie Pino, KULDEEP)1400 (Not Given - Provider: Katie Pino RN - Reason: Order parameters not met)1800 (Due) aspirin EC tablet 81 mg 81 mg, Oral, Daily, First dose on Mon03/14/25 at 1635, DO NOT CRUSH OR CHEW. 0837 (Given - Provider: Dashawn Cano RN) 0815 (Given - Provider: Kaylie Denny, RN) 0831 (Given - Provider: Katie Pino, RN) atorvastatin (LIPITOR) tablet 80 mg 80 mg, Oral, Nightly, First dose (after last modification) on Mon03/14/25 at 2130 2117 (Given - Provider: Zenobia Clay RN) 2157 (Given - Provider: China Negro RN) azelastine (ASTELIN) 137 mcg (0.1 %) nasal spray 1 spray 1 spray, Each Nare, Daily, First dose on Mon03/15/25 at 0900 0839 (Given - Provider: Dashawn Cano RN) 0813 (Given - Provider: Kaylie Denny, KULDEEP) 0832 (Given - Provider: Katie Pino, KULDEEP) cyclobenzaprine (FLEXERIL) tablet 10 mg (CANCELED) 10 mg, Oral, Every 8 hours scheduled, First dose on Mon03/17/25 at 2200 0614 (Given - Provider: Jeremy Merchant, KULDEEP)1431 (Given - Provider: Dashawn Cano RN)2117 (Given - Provider: Zenobia Clay, KULDEEP) 0536 (Given - Provider: Zenobia Clay RN)1400 (Hold - Provider: Kaylie Denny, KULDEEP - Reason: Patient/family refused - Comment: states makes him feel loopy asn asks to hold/discontinue order) furosemide (LASIX) tablet 20 mg 20 mg, Oral, Every other day, First dose on 03/15/25 at 0900 0838 (Given - Provider: Dashawn Cano RN) 0831 (Given - Provider: Katie Pino, KULDEEP) losartan (COZAAR) tablet 50 mg 50 mg, Oral, Daily with lunch, First dose on 03/15/25 at 1200, Please hold if mean arterial pressure (MAP) is less than 65 1126 (Not Given - Provider: Dashawn Cano RN - Reason: Order parameters not met - Comment: MAP 64) 1118 (Given - Provider: Kaylie Denny RN) 1111 (Given - Provider: Katie Pino, KULDEEP) metoprolol tartrate (LOPRESSOR) tablet 50 mg 50 mg, Oral, 2 times daily, First dose on Mon03/14/25 at 2200, Please hold if mean arterial pressure (MAP) is less than 65 and/or HR is less than 60 0837 (Given - Provider: Dashawn Cano RN)2117 (Given - Provider: Zenobia Clay RN - Comment: BP 134/44, MAP 67, HR 88) 0812 (Given - Provider: Kaylie Denny RN)215 (Given - Provider: China Negro, KULDEEP) 0831 (Given - Provider: Katie Pino, [...] Patient/family refused) 0831 (Given - Provider: Katie Pino, KULDEEP) rivaroxaban (XARELTO) tablet 2.5 mg 2.5 mg, Oral, 2 times daily, First dose on Mon03/18/25 at 1300, Give with food if possible. Notify physician if patient refuses. If feeding tube administration, give only via tubes placed in the stomach., Indication: CAD/PAD 0839 (Given - Provider: Dashawn Cano RN)191 (Given - Provider: Zenobia Clay, KULDEEP) 0812 (Given - Provider: Kaylie Denny, KULDEEP)193 (Given - Provider: China Negro RN) 0831 (Given - Provider: Katie Pino, KULDEEP) tamsulosin (FLOMAX) 24 hr capsule 0.4 mg 0.4 mg, Oral, After evening meal, First dose on Mon03/15/25 at 1800, DO NOT CRUSH OR CHEW. Give 30 minutes after the same meal daily. Monitor for orthostasis due to potential risk of syncope. 1815 (Given - Provider: Dashawn Cano, KULDEEP) 175 (Given - Provider: Kaylie Denny RN) 1800 (Due) zolpidem (AMBIEN) tablet 10 mg 10 mg, Oral, Nightly, First dose on Mon03/14/25 at 2200 2116 (Given - Provider: Zenobia Clay RN) 2156 (Given - Provider: China Negro RN) Continuous Medication Order 03/19/2025 03/20/2025 03/21/2025 sodium [...] with Food 1938 (Given - Provider: China Negro RN) HYDROmorphone (DILAUDID) injection 1 mg (CANCELED) 1 mg, Intravenous, Every 3 hours PRN, breakthru pain not controlled by PO, Starting on Mon03/17/25 at 1024 0631 (Given - Provider: Jeremy Merchant RN) lidocaine HCL (UROJET/GLYDO) 2 % applicator 1 [...] call physician. 0105 (Given - Provider: Jeremy Merchant RN)1919 (Given - Provider: Zenobia Clay RN) 0812 (Given - Provider: Kaylie Denny, KULDEEP)1753 [...] As needed, irritation, Starting on Mon03/14/25 at 2025, Upright delivers a spray; Horizontally a stream; [...] BE BASED ON THE PRIMARY CLINICAL RECORDS. [facility]. provides no warranty or guarantee of the accuracy or completeness of information in this document.
== END 2025-04-30 09:38 | disposition home or self-care (01) ==
LOC: WC 09:38
PROVIDERS: PCP Family Medicine; Visit Provider Podiatrist Foot & Ankle Surgery
DX: I70.261 Atherosclerosis of native arteries of extremities with gangrene, right leg (principal); L97.516 Non-pressure chronic ulcer of other part of right foot with bone involvement without evidence of necrosis
CPT/HCPCS: 11043

== ENCOUNTER 2025-04-30 10:34 | Outpatient (OUT) | payer MEDICARE, SELFPAY ==
--- OUTSIDE RECORDS SUMMARY | 2025-04-23 12:25 | XMS_ITS | Encounter Summary ---
Author Organization [facility] Address [address] [place] [address] Care Team Providers Care Naturopathic Doctor Name Role Phone Nikko Bird MD Primary Care Provider [phone] System, Provider Not In Unavailable Unavaila ble Reason for Referral * Cardio (Routine) - Pending Review Specialty Diagnoses / Procedures Referred By Jason christie Referred To Contact Cardiology Diagnoses PVD (peripheral vascular disease) Critical lower limb ischemia (HCC) Procedures US Duplex Bypass Graft LE Bilateral Gracy Millan MD [address] [place] [address] Phone: tel: fax: Referral ID Status Reason Start Date Expiration Date V isits Requested Visits Authorized [id number] Pending Review 04/03/2025 04/03/2026 1 1 Reason for Visit * Cardio (Routine) - Pending Review Specialty Diagnoses / Procedures Referred By Jason christie Referred To Contact Cardiology Diagnoses PVD (peripheral vascular disease) Critical lower limb ischemia (HCC) Procedures US Duplex Bypass Graft LE Bilateral Gracy Millan MD [address] [place], [place] [id number] Phone: tel: fax: Referral ID Status Reason Start Date Expiration Date V isits Requested Visits Authorized [id number] Pending Review 04/03/2025 04/03/2026 1 1 Encounter Details Date Type Department Care Team (Late st Contact Info) Description 04/23/2025 12:25 PM EDT - 04/23/2025 11:59 PM EDT Hospital Encounter [facility] [address] [place] [address] Gracy Millan MD [address] [place] [address] Discharge Disposition: Home Social History Tobacco Use Types Packs/Day Years Used Date Smoking Tobacco: Never Smokeless Tobacco: Never Alcohol Use Standard Drinks/Week Comments Not Currently 0 (1 standard drink = 0.6 oz pur e alcohol) [facility] Utilities Answer Date Recorded In the [...] time in the past 12 m [facility], were you homeless or living in a retirement (including now)? No 03/14/2025 Sex and Gender [...] a day . 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 Gear And Spline Grinder: Jigna Vera RDMS, RVT Staff Ordering Physician: [...] Artery Segment: Gabriela LEFT Inflow Artery Segment: J2EE PROGRAMMER LEFT Inflow Artery PSV: 126 LEFT Inflow [...] PM Patient Status: OP SERIES Site Location: [facility] Indications I73.9 - Peripheral vascular disease, unspecified I70.229 - Atherosclerosis of [place] arteries of extremities withrest pain, unspecified extremity Procedure Description 52965 Duplex scan of lower extremity arteries or arterial bypassgrafts using B-mode, color and spectral Doppler; unilateral or limited study. Gear And Spline Grinder: Jigna Vera RDMS, RVT Staff Ordering Physician: [...] Artery Segment: Gabriela LEFT Inflow Artery Segment: J2EE PROGRAMMER LEFT Inflow Artery PSV: 126 LEFT Inflow [...] RVT on 04/23/2025 02:41 PM us Gracy Milaln MD CV VASCULAR ORDERABLES Fin al Result FUJI SYNAPSE CV documented in this encounter Visit Diagnoses Diagnosis PVD (peripheral vascular disease) Unspecified peripheral vascular disease Critical lower limb ischemia (HCC) Unspecified circulatory system disorder documented in this encounter Additional Health Concerns Assessment Noted Time PHQ-2 Depression Total Score: 0 03/15/20 25 8:30 PM EDT documented as of this encounter Care Teams Naturopathic Doctor Relationship Specialty Start Date End Date Nikko Bird MD [address] [place] [address] PCP - General Family Medicine 09/04/18 System, Provider Not In Bending Frame Operator 11/09/22 documented as of this encounter
--- OUTSIDE RECORDS SUMMARY | 2025-04-23 12:25 | XMS_ITS | Encounter Summary ---
Author Organization [facility] Address [address] [place] [address] Care Team Providers Care Tennis Ball Cover Cementer Name Role Phone Nikko Bird MD Primary Care Provider [phone] System, Provider Not In Unavailable Unavaila ble Reason for Referral * Cardio (Routine) - Pending Review Specialty Diagnoses / Procedures Referred By Contac t Referred To Contact Cardiology Diagnoses PVD (peripheral vascular disease) Critical lower limb ischemia (HCC) Procedures US Doppler ankle/brachial index Gracy Millan MD [address] [place] [address] Phone: tel: fax: Referral ID Status Reason Start Date Expiration Date V isits Requested Visits Authorized [id number] Pending Review 04/03/2025 04/03/2026 1 1 Reason for Visit * Cardio (Routine) - Pending Review Specialty Diagnoses / Procedures Referred By Contac t Referred To Contact Cardiology Diagnoses PVD (peripheral vascular disease) Critical lower limb ischemia (HCC) Procedures US Doppler ankle/brachial index Gracy Millan MD [address] [place], [place] [id number] Phone: tel: fax: Referral ID Status Reason Start Date Expiration Date V isits Requested Visits Authorized [id number] Pending Review 04/03/2025 04/03/2026 1 1 Encounter Details Date Type Department Care Team (Late st Contact Info) Description 04/23/2025 12:25 PM EDT - 04/23/2025 11:59 PM EDT Hospital Encounter [facility] [address] [place] [address] Gracy Millan MD [address] [place] [address] Discharge Disposition: Home Social History Tobacco Use Types Packs/Day Years Used Date Smoking Tobacco: Never Smokeless Tobacco: Never Alcohol Use Standard Drinks/Week Comments Not Currently 0 (1 standard drink = 0.6 oz pur e alcohol) [facility] Utilities Answer Date Recorded In the past [...] time in the past [address] [facility], were you homeless or living in a long-term (including now)? No 03/14/2025 Sex and Gender [...] a day . naloxone (NARCAN) 4 mg/actuation [place] Administer 1 spray into one nostril for [...] 12:53 PM Patient Status: OUTPATIENT Site Location: [facility] Indications I73.9 - Peripheral vascular disease, unspecified I70.229 - Atherosclerosis of [place] arteries of extremities with rest pain, unspecified extremity Procedure Description 35228 Limited bilateral noninvasive physiologic studies of upper or lower extremity arteries with bidirectional Doppler/PVR waveform analysis at 1-2 levels. Continuity Editor: Ying Fiore RDCS, T Staff Ordering Physician: [...] Segmental BP RIGHT Brachial A mmH RIGHT PACKING SHED SUPERVISOR mmH RIGHT PACKING SHED SUPERVISOR Index: 0.96 RIGHT DPA mmH RIGHT DPA Index: 0.92 RIGHT YAMILE Index: 0.96 LEFT Brachial A mmH LEFT PACKING SHED SUPERVISOR Index: 0.48 LEFT PACKING SHED SUPERVISOR mmH LEFT DPA Index: 0.61 LEFT DPA mmH LEFT YAMILE Index: 0.61 Doppler RIGHT PACKING SHED SUPERVISOR Waveform: Multiphasic RIGHT DPA Waveform: Multiphasic LEFT PACKING SHED SUPERVISOR Waveform: Monophasic LEFT DPA Waveform: Monophasic , PVR RIGHT Ankle Grade: Abnormal RIGHT Transmetarsal Grade: Abnormal LEFT Ankle Grade: Abnormal Report Signatures Finalized by Nemo Conner MD, PHD, RVT on 04/23/2025 02:41 PM Procedure Note Nemo Conner MD - 04/23/2025 Patient Info Name: Tristin Gray Age: 85 years : 1940 Gender: Male Exam Date: 04/23/2025 12:53 PM Patient Status: OUTPATIENT Site Location: [facility] Indications I73.9 - Peripheral vascular disease, unspecified I70.229 - Atherosclerosis of [place] arteries of extremities withrest pain, unspecified extremity Procedure Description 27223 Limited bilateral noninvasive physiologic studies of upper orlower extremity arteries with bidirectional Doppler/PVR waveform analysis at1-2 levels. Continuity Editor: Ying Fiore RDCS, RVT Staff Ordering Physician: [...] Segmental BP RIGHT Brachial A mmH RIGHT PACKING SHED SUPERVISOR mmH RIGHT PACKING SHED SUPERVISOR Index: 0.96 RIGHT DPA mmH RIGHT DPA Index: 0.92 RIGHT YAMILE Index: 0.96 LEFT Brachial A mmH LEFT PACKING SHED SUPERVISOR Index: 0.48 LEFT PACKING SHED SUPERVISOR mmH LEFT DPA Index: 0.61 LEFT DPA mmH LEFT YAMILE Index: 0.61 Doppler RIGHT PACKING SHED SUPERVISOR Waveform: Multiphasic RIGHT DPA Waveform: Multiphasic LEFT PACKING SHED SUPERVISOR Waveform: Monophasic LEFT DPA Waveform: Monophasic , [...] documented as of this encounter Care Teams Tennis Ball Cover Cementer Relationship Specialty Start Date End Date Nikko Bird MD [address] [place] [address] PCP - General Family Medicine 09/04/18 System, Provider Not In Fire Protection Specialist 11/09/22 documented as of this encounter
--- OUTSIDE RECORDS SUMMARY | 2025-04-23 15:15 | XMS_ITS | Encounter Summary ---
Author Organization [facility] Address [address] [place] [address] Care Team Providers Care Deli Cutter Slicer Name Role Phone Nikko Bird MD Primary Care Provider [phone] System, Provider Not In Unavailable Unavaila ble Reason for Visit * Reason Comments Wound Check POST-OP - FU - WOUND CHECK - S/P R FEM-TIB BYPASS, 03/17 - BLE DUPLEX GRAFT, YAMILE'S PRIOR APPT TODAY - APPT PER KULDEEP BOX Encounter Details Date Type Department Care Team (Late st Contact Info) Description 04/23/2025 3:15 PM EDT Follow-Up [facility] [phone] [place] [phone] Gracy Millan MD [facility] [address] [address] Critical lower limb ischemia (HCC) (Primary Dx) Social History Tobacco Use Types Packs/Day Years Used Date Smoking Tobacco: Never Smokeless Tobacco: Never Alcohol Use Standard Drinks/Week Comments Not Currently 0 (1 standard drink = 0.6 oz pur e alcohol) [facility] Utilities Answer Date Recorded In the past [...] wound care under the care of a mailer. He is on his ASA, xarelto and [...] documented as of this encounter Care Teams Deli Cutter Slicer Relationship Specialty Start Date End Date [place], Rugen M, MD [address] [place] [address] PCP - General Family Medicine 09/04/18 System, Provider Not In Air Brake Adjuster 11/09/22 documented as of this encounter
--- OUTSIDE RECORDS SUMMARY | 2025-04-30 10:39 | XMS_ITS | Encounter Summary ---
Author Organization [facility] Address [address] [place] [address] Care Team Providers Care Mortgage Advisor Name Role Phone Nikko Bird MD Unavailable Nikko Bird MD Primary Care Provider [phone] Elaine Saab LPN Unavailable Encounter Details Date Type Department Care Team (Late st Contact Info) Description 04/09/2025 Abstract [facility] [place] [facility] 112 [address] [facility] 110 [place] [address] Nikko Bird MD [address] [facility] 110 [place] [address] Social History Tobacco Use Types Packs/Day Years [...] Recorded Patient Health Questionnaire-2 Score 0 04/08/2025 [facility] of Occupat ional Health - Occupational [...] any time in the past 12 m [facility], were you homeless or living [...] documented as of this encounter Care Teams Mortgage Advisor Relationship Specialty Start Date End Date Nikko Bird MD 112 [place] [address] [address] PCP - [employer] 08/28/17 Nikko Bird MD [address] [place] [facility] 110 [place] [address] PCP - General Family Medicine 03/09/23 Elaine Saab LPN [address] [address] [address] 11/15/24 documented as of this encounter
--- OUTSIDE RECORDS SUMMARY | 2025-04-30 10:39 | XMS_ITS | Encounter Summary ---
Author Organization [facility] Address [address] [place] [address] Care Team Providers Care Engineer Operations And Maintenance Name Role Phone Nikko Bird MD Unavailable Nikko Bird MD Primary Care Provider [phone] Elaine Saab LPN Unavailable Encounter Details Date Type Department Care Team (Late st Contact Info) Description 03/11/2025 Abstract [facility] [place] [facility] 112 [address] [facility] 110 [place] [address] Nikko Bird MD [address] [facility] 110 [place] [address] Social History Tobacco Use Types Packs/Day Years [...] Recorded Patient Health Questionnaire-2 Score 0 01/09/2025 [facility] of Occupat ional Health - [...] in the past 12 m [facility], were you homeless or living in [...] documented as of this encounter Care Teams Engineer Operations And Maintenance Relationship Specialty Start Date End Date Nikko Bird MD [address] [address] PCP - [employer] 08/28/17 Nikko Bird MD [address] [facility] 110 [place] [address] PCP - General Family Medicine 03/09/23 Elaine Saab LPN [address] [address] 11/15/24 documented as of this encounter
--- OUTSIDE RECORDS SUMMARY | 2025-04-30 10:39 | XMS_ITS | Encounter Summary ---
Author Organization [facility] Address [address] [place] [address] Care Team Providers Care Dish Technician Name Role Phone Nikko Bird MD Unavailable Nikko Bird MD Primary Care Provider [phone], Mary WRIGHTN Unavailable [phone] Monday, Mary SUBSTATION MAINTENANCE TECHNICIAN Unavailable [phone] Lorraine Morgan RN Unavailable Elaine Saab SUBSTATION MAINTENANCE TECHNICIAN Unavailable Encounter Details Date Type Department Care Team (Late st Contact Info) Description 01/25/2023 Orders Only [facility] [place] [facility] [address] [email or web address] 110 [place] [address] Nikko Bird MD [address] 110 [place] [address] Social History Tobacco Use Types Packs/Day Years [...] on filedocumented in this encounter Care Teams Dish Technician Relationship Specialty Start Date End Date Nikko Bird MD [address] [place] [address] PCP - [employer] 08/28/17 Nikko Bird MD [address] 110 [place] [address] PCP - General Family Medicine 03/09/23Monday, ISABELLA Hernandez [address] [place] [address] Licensed Practical Nurse Family Medicine 09/21/2309/21Mary LPN [address] [place] [address] Licensed Practical Nurse Family Medicine 06/21/24 Lorraine Morgan, RN [address] [place] [address] Licensed Practical Nurse Family Medicine 10/04/2411/15 Elaine Saab LPN [address] [place] [address] 11/15/24 documented as of this encounter
--- OUTSIDE RECORDS SUMMARY | 2025-04-30 10:39 | XMS_ITS | Encounter Summary ---
Author Organization [facility] Address [address] [place] [address] Care Team Providers Care Band Splitter Name Role Phone Nikko Bird MD Unavailable Nikko Bird MD Primary Care Provider [phone] Elaine Saab LPN Unavailable Encounter Details Date Type Department Care Team (Late st Contact Info) Description 03/20/2025 Abstract [facility] [place] [facility] [address] [facility] 110 [place] [address] Nikko Bird MD [address] [facility] 110 [place] [address] Social History Tobacco Use Types Packs/Day Years [...] Recorded Patient Health Questionnaire-2 Score 0 01/09/2025 [facility] of Occupat ional Health - [...] any time in the past 12 m [facility], were you homeless or living [...] documented as of this encounter Care Teams Band Splitter Relationship Specialty Start Date End Date Nikko Bird MD [address] [address] PCP - [employer] 08/28/17 Nikko Bird MD [address] [facility] 110 [place] [address] PCP - General Family Medicine 03/09/23 Elaine Saab LPN [address] [address] 11/15/24 documented as of this encounter
--- OUTSIDE RECORDS SUMMARY | 2025-04-30 10:39 | XMS_ITS | Clinical Summary ---
Author Organization [facility] Address [id number] [address] [place] [address] Care Team Providers Care Voice Coach Name Role Phone Nikko Bird MD Primary Care Provider Allergies Active Allergy Reactions Criticality Noted Date [...] on file Insurance [employer] MEDICARE Care Teams Voice Coach Relationship Specialty Start Date End Date Nikko Bird MD [facility] [place] [address] PCP - General 11/16/16
--- OUTSIDE RECORDS SUMMARY | 2025-04-30 10:39 | XMS_ITS | Encounter Summary ---
Author Organization [facility] Address [address] [place] [address] Care Team Providers Care Blueprinting Machine Operator Name Role Phone Nikko Bird MD Unavailable Nikko Bird MD Primary Care Provider Elaine Saab LPN Unavailable Encounter Details Date Type Department Care Team (Late st Contact Info) Description 04/08/2025 Abstract [facility] [place] [facility] [address] [facility] 110 [place] [address] Nikko Bird MD [address] [facility] 110 [place] [address] Social History Tobacco Use Types Packs/Day Years [...] Recorded Patient Health Questionnaire-2 Score 0 04/08/2025 [facility] of Occupat ional Health - Occupational [...] any time in the past 12 m [facility], were you homeless or [...] documented as of this encounter Care Teams Blueprinting Machine Operator Relationship Specialty Start Date End Date Nikko Bird MD [address] [address] PCP - [employer] 08/28/17 Nikko Bird MD [address] [facility] 110 [place] [address] PCP - General Family Medicine 03/09/23 Elaine Saab LPN [address] [facility] 110 [place] [address] 11/15/24 documented as of this encounter
--- OUTSIDE RECORDS SUMMARY | 2025-04-30 10:39 | XMS_ITS | Encounter Summary ---
Author Organization [facility] Address [address] [place] [address] Care Team Providers Care Warp Tester Name Role Phone Nikko Bird MD Unavailable Nikko Bird MD Primary Care Provider [phone] Elaine Saab LPN Unavailable Encounter Details Date Type Department Care Team (Late st Contact Info) Description 03/12/2025 Abstract [facility] [place] [facility] [address] [facility] 110 [place] [address] Nikko Bird MD [address] [place] 110 [place] [address] Social History Tobacco Use Types Packs/Day Years [...] Recorded Patient Health Questionnaire-2 Score 0 01/09/2025 [facility] of Occupat ional Health - [...] any time in the past 12 m [facility], were you homeless or [...] documented as of this encounter Care Teams Warp Tester Relationship Specialty Start Date End Date Nikko Bird MD [address] [address] PCP - [employer] 08/28/17 Nikko Bird MD [address] [facility] 110 [place] [address] PCP - General Family Medicine 03/09/23 Elaine Saab LPN [address] [address] 11/15/24 documented as of this encounter
--- OUTSIDE RECORDS SUMMARY | 2025-04-30 10:39 | XMS_ITS | Encounter Summary ---
Author Organization [facility] Address [address] [place] [address] Care Team Providers Care Shoe Repairer Name Role Phone Nikko Bird MD Unavailable Nikko Bird MD Primary Care Provider [phone] Elaine Saab LPN Unavailable Encounter Details Date Type Department Care Team (Late st Contact Info) Description 03/24/2025 Abstract [facility] [place] [facility] [address] [facility] 110 [place] [address] Nikko Bird MD [address] [facility] 110 [place] [address] Social History Tobacco Use Types Packs/Day Years [...] Recorded Patient Health Questionnaire-2 Score 0 01/09/2025 [facility] of Occupat ional Health - Occupational [...] documented as of this encounter Care Teams Shoe Repairer Relationship Specialty Start Date End Date Nikko Bird MD [address] [address] PCP - [employer] 08/28/17 Nikko Bird MD [address] [facility] 110 [place] [address] PCP - General Family Medicine 03/09/23 Elaine Saab LPN [address] [address] 11/15/24 documented as of this encounter
--- OUTSIDE RECORDS SUMMARY | 2025-04-30 10:39 | XMS_ITS | Encounter Summary ---
Author Organization [facility] Address [address] [place] [address] Care Team Providers Care Etcher Electrolytic Name Role Phone Nikko Bird MD Unavailable Nikko Bird MD Primary Care Provider [phone] Elaine Saab LPN Unavailable Encounter Details Date Type Department Care Team ([facility] Contact Info) Description 04/10/2025 Abstract [facility] 112 [facility] 120 [place] [address] Emmanuel Gonzalez DPM 300[address] [facility] 5 [place] [address] Social History Tobacco Use Types Packs/Day Years [...] Patient Health Questionnaire-2 Score 0 04/14/2025 [facility] of Occupat ional Health - Occupational [...] any time in the past 12 m [facility], were you homeless or living in a senior care (including now)? No 06/21/2024 Sex and Gender [...] documented as of this encounter Care Teams Etcher Electrolytic Relationship Specialty Start Date End Date Nikko Bird MD [address] [address] PCP - [employer] 08/28/17 Nikko Bird MD [address] [facility] 110 [place] [address] PCP - General Family Medicine 03/09/23 Elaine Saab LPN [address] [address] 11/15/24 documented as of this encounter
--- OUTSIDE RECORDS SUMMARY | 2025-04-30 10:39 | XMS_ITS | Encounter Summary ---
Author Organization [facility] Address [address] [place] [address] Care Team Providers Care Machine Puller And Laster Name Role Phone Nikko Bird MD Unavailable Nikko Bird MD Primary Care Provider [phone] Elaine Saab LPN Unavailable Encounter Details Date Type Department Care Team (Late st Contact Info) Description 03/17/2025 Abstract [facility] [place] [facility] [address] [facility] 110 [place] [address] Nikko Bird MD [address] [facility] 110 [place] [address] Social History Tobacco Use Types Packs/Day Years [...] Recorded Patient Health Questionnaire-2 Score 0 01/09/2025 [facility] of Occupat ional Health - Occupational [...] as of this encounter Care Teams Machine Puller And Laster Relationship Specialty Start Date End Date Nikko Bird MD [address] [address] PCP - [employer] 08/28/17 Nikko Bird MD [address] [facility] 110 [place] [address] PCP - General Family Medicine 03/09/23 Elaine Saab LPN [address] [address] 11/15/24 documented as of this encounter
--- OUTSIDE RECORDS SUMMARY | 2025-04-30 10:40 | XMS_ITS | Encounter Summary ---
Author Organization [facility] Address [address] [place] [address] Care Team Providers Care Nurse Sitter Name Role Phone Nikko Bird MD Unavailable Nikko Bird MD Primary Care Provider [phone], Mary PHARMACY OPERATIONS COORDINATOR Unavailable [phone] Lorraine Morgan RN Unavailable Elaine Saab PHARMACY OPERATIONS COORDINATOR Unavailable Encounter Details Date Type Department Care Team (Late st Contact Info) Description 05/14/2024 Abstract [facility] [place] [facility] [address] [facility] 110 [place] [id number] Nikko Bird MD 112 [facility] 110 [place] [address] Social History Tobacco Use Types Packs/Day Years [...] documented as of this encounter Care Teams Nurse Sitter Relationship Specialty Start Date End Date Nikko Bird MD [address] [facility] 110 [place] [address] PCP - [employer] 08/28/17 Nikko Bird MD [address] [facility] 110 [place] [address] PCP - General Family Medicine 03/09/23MondayMary LPN [address] [facility] 110 [place] [address] Licensed Practical Nurse Family Medicine 06/21/24 Lorraine Morgan, KULDEEP [address] [place], [place] [id number] Licensed Practical Nurse Family Medicine 10/04/2411/15 Elaine Saab LPN [address] [facility] 110 [place] [address] 11/15/24 documented as of this encounter
--- OUTSIDE RECORDS SUMMARY | 2025-04-30 10:40 | XMS_ITS | Encounter Summary ---
Author Organization [facility] Address [address] [place] [address] Care Team Providers Care Director Of Reimbursement Name Role Phone Nikko Bird MD Unavailable Nikko Bird MD Primary Care Provider [phone] Elaine Saab LPN Unavailable Reason for Visit * Reason Onset Date Comments Medication Question 04/29/2025 Has a terrib le cold and runny nose wanted to know if you could zuly in a z-pack for him. Encounter Details Date Type Department Care Team (Late st Contact Info) Description 04/29/2025 Telephone [facility] [address] [facility] 110 [place] [address] Sheree Murrell Medication Question (Has [...] Recorded Patient Health Questionnaire-2 Score 0 04/14/2025 [facility] - Occupational Stress Questionnaire Answer [...] any time in the past 12 m [facility], were you homeless or living in a [...] of this encounter Care Teams Director Of Reimbursement Relationship Specialty Start Date End Date Nikko Bird MD [address] [facility] 110 [place] [address] PCP - [employer] 08/28/17 Nikko Bird MD [address] [facility] 110 [place] [address] PCP - General Family Medicine 03/09/23 Elaine Saab LPN [address] [facility] 110 [place] [address] 11/15/24 documented as of this encounter
--- OUTSIDE RECORDS SUMMARY | 2025-04-30 10:40 | XMS_ITS | Encounter Summary ---
Author Organization [facility] Address [address] [place] [address] Phone Care Team Providers Care Director Of Compliance Name Role Phone Unavailable Primary Care Provider Unavailabl e Encounter Details Date Type Department Care Team (Late st Contact Info) Description 10/17/2023 Scanned Document [facility] [address] [place] [id number] Scanning, Generic Provider Social History Tobacco Use [...]
--- OUTSIDE RECORDS SUMMARY | 2025-04-30 10:40 | XMS_ITS | Encounter Summary ---
Author Organization [facility] Address [address] [place] [address] Care Team Providers Care Fulling Mill Operator Name Role Phone Nikko Bird MD Unavailable Nikko Bird MD Primary Care Provider [phone] Elaine Saab LPN Unavailable Encounter Details Date Type Department Care Team (Late st Contact Info) Description 04/10/2025 Abstract [facility] [place] [facility] [address] [facility] 110 [place] [address] Nikko Bird MD [address] [facility] 110 [place] [address] Social History Tobacco Use Types Packs/Day Years [...] Recorded Patient Health Questionnaire-2 Score 0 04/14/2025 [facility] - Occupational [...] documented as of this encounter Care Teams Fulling Mill Operator Relationship Specialty Start Date End Date Nikko Bird MD [address] [address] PCP - [employer] 08/28/17 Nikko Bird MD [address] [facility] 110 [place] [address] PCP - General Family Medicine 03/09/23 Elaine Saab LPN [address] [address] 11/15/24 documented as of this encounter
--- OUTSIDE RECORDS SUMMARY | 2025-04-30 10:40 | XMS_ITS | Encounter Summary ---
Author Organization [facility] Address [address] [place] [address] Care Team Providers Care Muffler Tender Name Role Phone Nikko Bird MD Unavailable Nikko Bird MD Primary Care Provider [phone], Mary TURN OUT WORKER Unavailable [phone] Monday, Mary TURN OUT WORKER Unavailable [phone] Lorraine Morgan RN Unavailable Elaine Saab TURN OUT WORKER Unavailable Encounter Details Date Type Department Care Team (Late st Contact Info) Description 06/14/2023 Abstract [facility] [place] [facility] 112 [facility] 110 [place] [address] Nikko Bird MD 112 [facility] 110 [place], [place] [id number] Social History Tobacco Use Types Packs/Day Years [...] on filedocumented in this encounter Care Teams Muffler Tender Relationship Specialty Start Date End Date Nikko Bird MD [address] [place] [address] PCP - [employer] 08/28/17 Nikko Bird MD [address] 110 [place] [address] PCP - General Family Medicine 03/09/23Monday, ISABELLA Hernandez [address] [place] [address] Licensed Practical Nurse Family Medicine 09/21/2309/21, ISABELLA Hernandez [address] [place] [address] Licensed Practical Nurse Family Medicine 06/21/24 Lorraine Morgan, RN [address] [place] [address] Licensed Practical Nurse Family Medicine 10/04/2411/15 Elaine Saab LPN [address] [facility] 110 [place] [address] 11/15/24 documented as of this encounter
--- OUTSIDE RECORDS SUMMARY | 2025-04-30 10:40 | XMS_ITS | Encounter Summary ---
Author Organization [facility] Address [address] [place] [address] Care Team Providers Care Administrative Office Specialist Name Role Phone Nikko Bird MD Unavailable Nikko Bird MD Primary Care Provider [phone], Mary WRIGHTN Unavailable [phone] Lorraine Morgan RN Unavailable [phone] [phone], Elaine PROFESSOR OF EARLY CHILDHOOD EDUCATION Unavailable Encounter Details Date Type Department Care Team (Late st Contact Info) Description 07/10/2024 Abstract [facility] [place] [facility] 112 [facility] 110 [place] [address] Nikko Bird MD 112 [facility] 110 [place] [address] Social History Tobacco Use Types Packs/Day Years [...] Recorded Patient Health Questionnaire-2 Score 0 04/26/2024 [facility] - [...] documented as of this encounter Care Teams Administrative Office Specialist Relationship Specialty Start Date End Date Nikko Bird MD [address] [place] [address] PCP - [employer] 08/28/17 Nikko Bird MD [address] [place] [address] PCP - General Family Medicine 03/09/23MondayMary LPN [address] [place] [address] Licensed Practical Nurse Family Medicine 06/21/24 Lorraine Morgan, RN [address] [place] [address] Licensed Practical Nurse Family Medicine 10/04/2411/15 Elaine Saab LPN [address] [place] [address] 11/15/24 documented as of this encounter
--- OUTSIDE RECORDS SUMMARY | 2025-04-30 10:40 | XMS_ITS | Encounter Summary ---
Author Organization [facility] Address [address] [place] [address] Care Team Providers Care Chief Medical Director Name Role Phone Nikko Bird MD Unavailable Nikko Bird MD Primary Care Provider [phone], Mary BANK PRESIDENT Unavailable [phone] Lorraine Morgan RN Unavailable [phone] Elaine Saab BANK PRESIDENT Unavailable Encounter Details Date Type Department Care Team (Late st Contact Info) Description 05/13/2024 Abstract [facility] [place] [facility] [address] [facility] 110 [place] [phone] Nikko Bird MD 112 [facility] 110 [place] [address] Social History Tobacco Use Types Packs/Day Years [...] documented as of this encounter Care Teams Chief Medical Director Relationship Specialty Start Date End Date Nikko Bird MD [address] [facility] 110 [place] [address] PCP - [employer] 08/28/17 Nikko Bird MD [address] [facility] 110 [place] [address] PCP - General Family Medicine 03/09/23MondayMary LPN [address] [facility] 110 [place] [address] Licensed Practical Nurse Family Medicine 06/21/24 Lorraine Morgan, KULDEEP [address] [place], [place] [address] Licensed Practical Nurse Family Medicine 10/04/2411/15 Elaine Saab LPN [address] [facility] 110 [place] [address] 11/15/24 documented as of this encounter
--- OUTSIDE RECORDS SUMMARY | 2025-04-30 10:40 | XMS_ITS | Clinical Summary ---
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 Pt was placed on Xarelto and [...] Team Description 04/23/2025 3:15 PM EDT Follow-Up [facility] [address] [place] [phone] Gracy Millan MD Critical lower limb ischemia (HCC) (Primary Dx) 04/23/2025 12:25 PM EDT - 04/23/2025 11:59 PM EDT Hospital Encounter [facility] [address] [place] [address] Gracy Millan MD Discharge Disposition: Home 04/23/2025 12:25 PM EDT - 04/23/2025 11:59 PM EDT Hospital Encounter [facility] [address] [place] [address] Gracy Millan MD Discharge Disposition: Home 04/23/2025 Travel 04/02/2025 12:00 PM EDT Follow-Up [facility] [address] [place] [phone] Gracy Millan MD Critical lower limb ischemia (HCC) (Primary Dx) 04/02/2025 Travel 03/18/2025 Documentation [facility] [address] [place] [address] Brenna Galloway RN 03/17/2025 12:20 PM EDT Anesthesia Event [facility] [address] [place] [address] Skyler Gil MD Reardon, Michael E., MD 03/17/2025 12:10 PM EDT - 03/17/2025 5:10 PM EDT Surgery [facility] [address] [place] [address] Gracy Millan MD RIGHT FEMORAL TO TIBIAL BYPASS WITH ARM VEIN. Angiogram 03/14/2025 11:04 AM EDT - 03/21/2025 6:29 PM EDT Hospital Encounter [facility] [address] [place], [place] [phone] Elaine Macdonald MD [facility] Dooling, Patrick Cassidy, MD Discharge Disposition: Home 03/14/2025 10:00 AM EDT Office Visit [facility] [address] [place] [address] [address] [place] [phone] Gracy Millan MD Hoover, Ashly Swan, KAMARI Acute pain of right lower extremity (Primary Dx) 03/14/2025 7:30 AM EDT - 03/14/2025 11:59 PM EDT Hospital Encounter [facility] [address] [place] [phone] Gracy Millan MD Discharge Disposition: Home 03/14/2025 7:26 AM EDT - 03/14/2025 11:59 PM EDT Hospital Encounter [facility] [address] [place] [address] Gracy Millan MD Discharge Disposition: Home 03/14/2025 Documentation [facility] [address] [facility] [address] [place] [phone] Ludivina Garcia RN 03/14/2025 Documentation [facility] [address] [place] [phone] Ludivina Garcia RN 03/14/2025 Travel 03/13/2025 Documentation [facility] [phone] Ludivina Garcia, RN from Last 3 Months Immunizations Immunization Administration Dates Next Due INFLUENZA IIV3 65+YO FLUAD 26192 06/18/2019 Influenza, Injectable, Quadrivalent 05/22/2017 Influenza, high [...] drink = 0.6 oz pur e alcohol) [facility] Utilities Answer Date Recorded In the past 12 months has [facility] [employer], [employer], oil, or water [employer] threatened to shut off services in your [...] living in a snf (including now)? No 03/14/2025 Sex and Gender [...] 03/15/2026 03/15/2025 Medical Devices Implanted Type Area Hide Mill Man Device Identifier Shelf Expiration Date Model / Serial / Lot Hemostat 2 X 4in Surgicel Fibrillar - [id number] Implanted:Qty: 1 on 09/07/2018 by Gracy Millan MD at [facility] Left: Leg [facility] 02/24/20211961 / / [id number] Hemostat 2 X 4in Surgicel Fibrillar - Sna Implanted:Qty: 1 on 03/17/2025 by Gracy Millan MD at [facility] 05/27/20271961 / NA / [id number] Sealant 10ml Hemostatic Matrix Fast Prep Floseal W/Recothrom - [id number] Implanted:Qty: 1 on 03/17/2025 by Gracy Millan MD at [facility] Right: Arterial DEL CASTILLO BIO [id number] 10/30/2026 [id number] / / [id number] Procedures Procedure Name Priority Date/Time Associated Diagnosis [...] IV Routine 03/17/2025 12:4 0 PM EDT [place] ARTL CATHJ/CANNULJ MNTR/TRANSFUSION SPX PRQ Routine 03/17/2025 12:40 PM EDT AIRWAY ETT Routine 03/17/2025 12:40 PM EDT KS BYP FEM-ANT TIBL PST TIBL PRONEAL ART/OTH [...] 12:53 PM Patient Status: OUTPATIENT Site Location: [facility] Indications I73.9 - Peripheral vascular disease, unspecified 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 Wooden Barrel Mechanic: Ying Fiore [facility], RVT Staff Ordering Physician: Gracy Millan MD, [...] Segmental BP RIGHT Brachial A mmH RIGHT MEDICAL SCIENTIFIC OFFICER mmH RIGHT MEDICAL SCIENTIFIC OFFICER Index: 0.96 RIGHT DPA mmH RIGHT DPA Index: 0.92 RIGHT YAMILE Index: 0.96 LEFT Brachial A mmH LEFT MEDICAL SCIENTIFIC OFFICER Index: 0.48 LEFT MEDICAL SCIENTIFIC OFFICER mmH LEFT DPA Index: 0.61 LEFT DPA mmH LEFT YAMILE Index: 0.61 Doppler RIGHT MEDICAL SCIENTIFIC OFFICER Waveform: Multiphasic RIGHT DPA Waveform: Multiphasic LEFT MEDICAL SCIENTIFIC OFFICER Waveform: Monophasic LEFT DPA Waveform: Monophasic , PVR RIGHT Ankle Grade: Abnormal RIGHT Transmetarsal Grade: Abnormal LEFT Ankle Grade: Abnormal Report Signatures Finalized by Nemo Conner MD, PHD, RVT on 04/23/2025 02:41 PM Procedure Note Nemo Conner MD - 04/23/2025 Patient Info Name: Tristin Gray Age: 85 years : 1940 Gender: Male Exam Date: 04/23/2025 12:53 PM Patient Status: OUTPATIENT Site Location: [facility] Indications I73.9 - Peripheral vascular disease, unspecified I70.229 - Atherosclerosis of petersburg arteries of extremities withrest pain, unspecified extremity Procedure Description 80619 Limited bilateral noninvasive physiologic studies of upper orlower extremity arteries with bidirectional Doppler/PVR waveform analysis at1-2 levels. Wooden Barrel Mechanic: Ying Fiore RD, RVT Staff Ordering Physician: [...] Segmental BP RIGHT Brachial A mmH RIGHT MEDICAL SCIENTIFIC OFFICER mmH RIGHT MEDICAL SCIENTIFIC OFFICER Index: 0.96 RIGHT DPA mmH RIGHT DPA Index: 0.92 RIGHT YAMILE Index: 0.96 LEFT Brachial A mmH LEFT MEDICAL SCIENTIFIC OFFICER Index: 0.48 LEFT MEDICAL SCIENTIFIC OFFICER mmH LEFT DPA Index: 0.61 LEFT DPA mmH LEFT YAMILE Index: 0.61 Doppler RIGHT MEDICAL SCIENTIFIC OFFICER Waveform: Multiphasic RIGHT DPA Waveform: Multiphasic LEFT MEDICAL SCIENTIFIC OFFICER Waveform: Monophasic LEFT DPA Waveform: Monophasic , PVR RIGHT Ankle Grade: Abnormal RIGHT Transmetarsal Grade: Abnormal LEFT Ankle Grade: Abnormal Report Signatures Finalized by Nemo Conner MD, PHD, RVT on 04/23/2025 02:41 PM us Gracy Millan MD CV VASCULAR ORDERABLES Fin al Result MARK Kleo LILIANA * Duplex Bypass Graft LE Bilateral (04/23/2025 2:18 PM EDT) 04/23/2025 12:5 3 PM EDT Narrative MARK RAINEY CV - 04/23/2025 2:41 PM EDT Patient Info Name: Tristin Gray Age: 85 years : 1940 Gender: Male Exam Date: 04/23/2025 12:53 PM Patient Status: OP SERIES Site Location: [facility] Indications I73.9 - Peripheral vascular disease, unspecified 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 Wooden Barrel Mechanic: Jigna Vera RDMS, RVT Staff Ordering Physician: [...] Artery Segment: Gabriela LEFT Inflow Artery Segment: SAFETY OFFICER LEFT Inflow Artery PSV: 126 LEFT Inflow [...] PM Patient Status: OP SERIES Site Location: [facility] Indications I73.9 - Peripheral vascular disease, unspecified I70.229 - Atherosclerosis of p[place] arteries of extremities withrest pain, unspecified extremity Procedure Description 62970 Duplex scan of lower extremity arteries or arterial bypassgrafts using B-mode, color and spectral Doppler; unilateral or limited study. Wooden Barrel Mechanic: Jigna Vera RDMS, RVT Staff Ordering Physician: [...] Artery Segment: Gabriela LEFT Inflow Artery Segment: SAFETY OFFICER LEFT Inflow Artery PSV: 126 LEFT Inflow [...] - 11.00 K/mcL 03/21/2025 6:41 AM T [facility] RBC 3.16(L) 4.50 - 5.90 M/mcL 03/21/2025 6:41 AM [facility] Hemoglobin 10.5(L) 13.5 - 17.5 g/dL 03/21/2025 6:41 AM [facility] Hematocrit 30.0(L) 41.0 - 53.0 % 03/21/2025 6:41 AM [facility] MCV 94.9 80.0 - 100.0 fL 03/21/2025 6:41 AM [facility] MCH 33.2 26.0 - 34.0 pg 03/21/2025 6:41 AM [facility] MCHC 35.0 31.0 - 37.0 g/dL 03/21/2025 6:41 AM [facility] Platelets 213 150 - 400 K/mcL 03/21/2025 6:41 AM [facility] RDW - CV 13.7 11.6 - 14.8 % 03/21/2025 6:41 AM [facility] MPV 9.7 9.4 - 12.4 fL 03/21/2025 6:41 AM [facility] Nucleated RBC 0.0 % 03/21/2025 6:41 AM [facility] Nucleated RBC Abs 0.00 0.00 - 0.00 K/mcL 03/21/2025 6:41 AM [facility] Blood BLOOD SPECIMEN / Unknown Venipuncture / Unknown 03/21/2025 6:06 AM EDT 03/21/2025 6:20 AM EDT Skyler Otto MD LAB BLOOD ORDERABLES Final Result [facility] [address] [place] [id number] * Magnesium (03/21/2025 6:06 AM EDT) Only the most recent of7 resultswithin the time period is included. Magnesium 2.1 1.6 - 2.4 mg/dL 03/21/2025 6:54 AM T [facility] Blood BLOOD SPECIMEN / Unknown Venipuncture / Unknown 03/21/2025 6:06 AM EDT 03/21/2025 6:20 AM EDT Skyler Otto MD LAB BLOOD ORDERABLES Final Result Performing Organization Address [facility] Co de Phone Number [facility] [address] [place] [id number] * (ABNORMAL) Basic Metabolic Panel (03/21/2025 6:06 AM EDT) Only the most recent of7 resultswithin the time period is included. Sodium 140 135 - 145 mmol/L 03/21/2025 6:54 AM [facility] Potassium 4.0 3.5 - 5.1 mmol/L 03/21/2025 6:54 AM [facility] Comment:Slightly Hemolyzed Chloride 108 98 - 108 mmol/L 03/21/2025 6:54 AM [facility] Bicarbonate 22 21 - 32 mmol/L 03/21/2025 6:54 AM [facility] Anion Gap 14 10 - 20 mmol/L 03/21/2025 6:54 AM [facility] Glucose 109(H) 65 - 99 mg/dL 03/21/2025 6:54 AM [facility] BUN 19 8 - 25 mg/dL 03/21/2025 6:54 AM [facility] Creatinine 0.98 0.80 - 1.30 mg/dL 03/21/2025 6:54 AM EDT [facility] eGFR 75 >=60 mL/min/1.7 3 m2 03/21/2025 6:54 AM EDT [facility] Comment:Estimated GFR was ca lculated using the 2020 CKD-EPI creatinine equation. BUN/Creatinine Ratio 19.4 10.0 - 20.0 03/21/2025 6:54 AM EDT [facility] Calcium 9.4 8.4 - 10.2 mg/dL 03/21/2025 6:54 AM EDT [facility] Blood BLOOD SPECIMEN / Unknown Venipuncture / Unknown 03/21/2025 6:06 AM EDT 03/21/2025 6:20 AM EDT Narrative [facility] - 03/21/2025 6:54 AM EDT [facility] Services has implemented the eGFR calculation approach that does not have a coefficient for race that conforms to the NKF-ASN Task Force Recommendations. us Skyler Otto MD LAB BLOOD ORDERABLES Final Result [facility] [address] [place] [address] * (ABNORMAL) Hemoglobin and Hematocrit (03/17/2025 11:09 PM EDT) Only the most recent of2 resultswithin the time period is included. Hemoglobin 11.2(L) 13.5 - 17.5 g/dL 03/17/2025 11:30 PM EDT [facility] Hematocrit 30.5(L) 41.0 - 53.0 % 03/17/2025 11:30 PM EDT [facility] Blood BLOOD SPECIMEN / Unknown Venipuncture / Unknown 03/17/2025 11:09 PM EDT 03/17/2025 11:26 PM EDT Ana Luisa Murray MD LAB BLOOD ORDERABLES Final Resul t [facility] [address] [place] [address] * XR OR Angio Lower Extremity Right (03/17/2025 4:13 PM EDT) Anatomical Region Laterality Modality Radio Fluoroscop y 03/18/2025 7:53 AM EDT Impressions 03/18/2025 10:04 AM EDT Fluoroscopy used for intraoperative angiogram. Refer to the operative report for details. [employer] Workstation ID: [id number] Narrative 03/18/2025 10:04 AM [...] angiogram. Refer to the operativereport for details. [employer] Workstation ID: [id number] us Gracy Millan MD [...] ultrasound guidance Number of attempts: 1 Result [facility] Serjio Olivarez MD [place] ANESTHESIA Final Re sult * [place] ARTL CATHJ/CANNULJ MNTR/TRANSFUSION SPX PRQ (03/17/2025 12:40 [...] Final orientation: right Final location: radial Monitoring: satellite project site monitor, pulse oximetry, heart rate and BP [...] procedure well with no immediate complications Result [facility] Serjio Olivarez MD [place] ANESTHESIA Final Re sult * ETT Airway [...] none Lip/tooth/tongue trauma: no Serjio Olivarez MD [place] ANESTHESIA Final Re sult * (ABNORMAL) POC Glucose (03/17/2025 11:01 AM EDT) Glucose 105(H) 65 - 99 mg/dL 03/17/2025 11:02 AM EDT [facility] Blood BLOOD SPECIMEN / Unknown 03/17/2025 11:01 AM EDT 03/17/2025 11:02 AM EDT [facility] POCT ORDERABLES - DEV ICE Final Result [facility] [address] [place] [id number] * (ABNORMAL) APTT Heparin Coverage (03/17/2025 3:53 AM EDT) Only the most recent of4 resultswithin the time period is included. APTT 92(H) 23 - 34 seconds 03/17/2025 5:14 AM EDT [facility] Blood BLOOD SPECIMEN / Unknown Venipuncture / Unknown 03/17/2025 3:53 AM EDT 03/17/2025 4:29 AM EDT Narrative [facility] - 03/17/2025 5:14 AM EDT Therapeutic range for APTT's is 68 - 104 seconds Gracy Millan MD LAB BLOOD ORDERABLES Final Result [facility] [address] [place] [id number] * ECG 12 Lead (03/16/2025 11:44 AM EDT) Only the most recent of3 resultswithin the time period is included. Ventricular Rate 63 BPM MUSE Atrial Rate 63 BPM MUSE P-R Interval 208 ms MUSE QRS Duration 102 ms MUSE Q-T Interval 454 ms MUSE QTC Calculation (Bezet) 464 ms MUSE P [place] 86 degrees MUSE R [place] 45 degrees MUSE T [place] 44 degrees MUSE 03/16/2025 11:4 4 AM EDT 03/17/2025 7:58 AM EDT Narrative MUSE - 03/17/2025 7:58 AM EDT Sinus rhythm with Premature supraventricular complexes Otherwise normal ECG Confirmed by MARY CARLTON ([id number]) on 03/17/2025 7:58:31 AM us Ana Luisa Murray MD ECG ORDERABLES Final Result MUSE * (ABNORMAL) PT/INR (03/16/2025 9:07 AM EDT) Only the most recent of2 resultswithin the time period is included. Protime (PT) 14.7(H) 11.8 - 14.3 seconds 03/16/2025 10:22 AM EDT [facility] INR 1.1 0.8 - 1.1 03/16/2025 10:22 AM EDT [facility] Blood BLOOD SPECIMEN / Unknown Venipuncture / Unknown 03/16/2025 9:07 AM EDT 03/16/2025 9:48 AM EDT Narrative [facility] - 03/16/2025 10:22 AM EDT During the induction phase of oral anticoagulation, the INR may not reflect the anticoagulation status of the patient. Therapeutic ranges for INR's are: Most clinical situations: INR 2.0-3.0 Mechanical Prosthetic Valve: INR 2.5-3.5 Critical: INR >5.0 us Alexei Salomon MD LAB BLOOD ORDERABLES Final Res ult [facility] [address] [place] [address] * Type and Screen (03/16/2025 9:07 AM EDT) ABORh O Positive 03/16/2025 10:37 AM EDT [facility] Antibody Screen Negative 03/16/2025 10:37 AM EDT [facility] Specimen Expires 03/19/2025 23:59 EST 03/16/2025 10:37 AM EDT [facility] Blood BLOOD SPECIMEN / Unknown Venipuncture / Unknown 03/16/2025 9:07 AM EDT 03/16/2025 9:48 AM EDT us Alexei Salomon MD BLOOD BANK TEST ORDERABLES Fin al Result Performing Organization Address City/[facility]/ZIP Co de Phone Number [facility] [address] [place], [place] [id number] * APTT (03/15/2025 7:52 PM EDT) APTT 33 23 - 34 seconds 03/15/2025 8:14 PM EDT [facility] Blood BLOOD SPECIMEN / Unknown Venipuncture / Unknown 03/15/2025 7:52 PM EDT 03/15/2025 7:56 PM EDT Narrative [facility] - 03/15/2025 8:14 PM EDT Therapeutic range for APTT's is 68 - 104 seconds us Mary Madrigal MD LAB BLOOD ORDERABLE S Final Result Performing Organization Address City/[facility] Co de Phone Number [facility] [address] [place], [place] [id number] * Ultrasound Saphenous vein mapping (03/14/2025 9:56 PM EDT) 03/14/2025 9:26 PM EDT Narrative FUJI SYNAPSE CV - 03/16/2025 11:15 AM EDT Patient Info Name: Tristin Gray Age: 85 years : 1940 Gender: Male Exam Date: 03/14/2025 9:26 PM Patient Status: INPATIENT Site Location: [facility] Indications Z01.810 - Encounter for preprocedural cardiovascular examination Procedure Description 52669 Duplex examination using B-mode, color and spectral Doppler of extremity veins including responses to compression and other maneuvers; complete bilateral study. Wooden Barrel Mechanic: Cristian Ellis RVT, [facility] Staff Ordering Physician: Alexei Salomon [...] (mm): 2.0 Report Signatures Finalized by Aaron Hien MD, RPVI on 03/16/2025 11:15 AM Procedure Note Aaron Hein MD - 03/16/2025 Patient Info Name: Tristin Gray Age: 85 years : 1940 Gender: Male Exam Date: 03/14/2025 9:26 PM Patient Status: INPATIENT Site Location: [facility] Indications Z01.810 - Encounter for preprocedural cardiovascular examination Procedure Description 55294 Duplex examination using B-mode, color and spectral Doppler of extremity veins including responses to compression and other maneuvers; complete bilateral study. Wooden Barrel Mechanic: Cristian Ellis RVT, [facility] Staff Ordering Physician: Alexei Salomon [...] MD CV VASCULAR ORDERABLES Final R esult qLearning CV * Upper extremity vein mapping (03/14/2025 9:55 PM EDT) 03/14/2025 9:20 PM EDT Narrative OfficeDropMilan Kleo CV - 03/16/2025 11:14 AM EDT Patient Info Name: Tristin Gray Age: 85 years : 1940 Gender: Male Exam Date: 03/14/2025 9:20 PM Patient Status: INPATIENT Site Location: [facility] Indications Z01.810 - Encounter for preprocedural cardiovascular examination Procedure Description 93377 Duplex examination using B-mode, color and spectral Doppler of extremity veins including responses to compression and other maneuvers; complete bilateral study. Wooden Barrel Mechanic: Cristian Ellis RVT, [facility] Staff Ordering Physician: Alexei Salomon [...] MD - 03/16/2025 Patient Info Name: Tristin Grya Age: 85 years : 1940 Gender: Male Exam Date: 03/14/2025 9:20 PM Patient Status: INPATIENT Site Location: [facility] Indications Z01.810 - Encounter for preprocedural cardiovascular examination Procedure Description 73456 Duplex examination using B-mode, color and spectral Doppler of extremity veins including responses to compression and other maneuvers; complete bilateral study. Wooden Barrel Mechanic: Cristian Ellis RVT, [facility] Staff Ordering Physician: Alexei Salomon [...] ORDERABLES Final R esult Performing Organization Address City/State/[facility] Co de Phone Number FUJI SYNAPSE CV * [facility] (03/14/2025 11:28 AM EDT) Extra Tube Hold for add-ons. 03/14/2025 3:59 PM EDT [facility] Comment:Auto resulted. Blood BLOOD SPECIMEN / Unknown Venipuncture / Unknown 03/14/2025 11:28 AM EDT 03/14/2025 11:32 AM EDT us Elaine Macdonald MD LAB BLOOD ORDERABLES Fin al Result [facility] [address] [place] [id number] * Chao Top (03/14/2025 11:28 AM EDT) Extra Tube Hold for add-ons. 03/14/2025 1:58 PM EDT [facility] Comment:Auto resulted. Blood BLOOD SPECIMEN / Unknown Venipuncture / Unknown 03/14/2025 11:28 AM EDT 03/14/2025 11:32 AM EDT Elaine Macdonald MD LAB BLOOD ORDERABLES Fin al Result Performing Organization Address City/[facility]/ZIP Co de Phone Number [facility] [address] [place] [phone] * Kamrar Top (03/14/2025 11:28 AM EDT) Blood BLOOD SPECIMEN / Unknown Venipuncture / Unknown 03/14/2025 11:28 AM EDT 03/14/2025 11:32 AM EDT Elaine Macdonald MD LAB BLOOD ORDERABLES Fin al Result Performing Organization Address [facility]/ZIP Co de Phone Number [facility] [address] [place] [phone] * (ABNORMAL) Chem 7 (03/14/2025 11:28 AM EDT) Sodium 139 135 - 145 mmol/L 03/14/2025 12:09 PM EDT [facility] Potassium 3.8 3.5 - 5.1 mmol/L 03/14/2025 12:09 PM EDT [facility] Chloride 102 98 - 108 mmol/L 03/14/2025 12:09 PM EDT [facility] Bicarbonate 25 21 - 32 mmol/L 03/14/2025 12:09 PM EDT [facility] Anion Gap 16 10 - 20 mmol/L 03/14/2025 12:09 PM EDT [facility] Glucose 100(H) 65 - 99 mg/dL 03/14/2025 12:09 PM EDT [facility] BUN 20 8 - 25 mg/dL 03/14/2025 12:09 PM T [facility] Creatinine 1.12 0.80 - 1.30 mg/dL 03/14/2025 12:09 PM EDT [facility] eGFR 64 >=60 mL/min/1.7 3 m2 03/14/2025 12:09 PM [facility] Comment:Estimated GFR was ca lculated using the 2020 CKD-EPI creatinine equation. BUN/Creatinine Ratio 17.9 10.0 - 20.0 03/14/2025 12:09 PM T [facility] Blood BLOOD SPECIMEN / Unknown Venipuncture / Unknown 03/14/2025 11:28 AM EDT 03/14/2025 11:32 AM EDT [facility] - 03/14/2025 12:09 PM EDT [facility] Services has implemented the eGFR calculation approach that does not have a coefficient for race that conforms to the NKF-ASN Task Force Recommendations. Dashawn Stallings PA-C LAB BLOOD ORDERABLES F inal Result [facility] [address] [place] [address] * (ABNORMAL) CBC Auto Differential (03/14/2025 11:28 AM EDT) WBC 3.50(L) 4.50 - 11.00 K/mcL 03/14/2025 12:15 PM [facility] RBC 4.34(L) 4.50 - 5.90 M/mcL 03/14/2025 12:15 PM [facility] Hemoglobin 13.2(L) 13.5 - 17.5 g/dL 03/14/2025 12:15 PM T [facility] Hematocrit 39.3(L) 41.0 - 53.0 % 03/14/2025 12:15 PM [facility] MCV 90.6 80.0 - 100.0 fL 03/14/2025 12:15 PM EDT [facility] MCH 30.4 26.0 - 34.0 pg 03/14/2025 12:15 PM [facility] MCHC 33.6 31.0 - 37.0 g/dL 03/14/2025 12:15 PM [facility] Platelets 173 150 - 400 K/mcL 03/14/2025 12:15 PM [facility] RDW - CV 13.5 11.6 - 14.8 % 03/14/2025 12:15 PM [facility] MPV 9.3(L) 9.4 - 12.4 fL 03/14/2025 12:15 PM [facility] Neutrophils 54.0 % 03/14/2025 12:15 PM [facility] Comment:Peripheral smear rev iewed manually Lymphocytes 18.6 % 03/14/2025 12:15 PM [facility] Monocytes 23.1 % 03/14/2025 12:15 PM [facility] Eosinophils 3.4 % 03/14/2025 12:15 PM [facility] Basophils 0.6 % 03/14/2025 12:15 PM [facility] IG Percent 0.30 % 03/14/2025 12:15 PM [facility] Comment:The IG parameter is the percentage of metamyelocytes, myelocytes and promyelocytes. An immature granulocyte count (IG) of 1% or more suggests the possibility of infection, an IG count of 3% is very likely related to an infection. Neutrophils Abs 1.89 1.70 - 7.00 K/mcL 03/14/2025 12:15 PM [facility] Lymphocytes Abs 0.65(L) 0.90 - 4.00 K/mcL 03/14/2025 12:15 PM [facility] Monocytes Abs 0.81 0.30 - 0.90 K/mcL 03/14/2025 12:15 PM [facility] Eosinophils Abs 0.12 0.00 - 0.50 K/mcL 03/14/2025 12:15 PM [facility] Basophils Abs 0.02 0.00 - 0.30 K/mcL 03/14/2025 12:15 PM EDT [facility] IG Absolute 0.01 0.00 - 0.30 K/mcL 03/14/2025 12:15 PM EDT [facility] Nucleated RBC 0.0 % 03/14/2025 12:15 PM EDT [facility] Nucleated RBC Abs 0.00 0.00 - 0.00 K/mcL 03/14/2025 12:15 PM EDT [facility] Blood BLOOD SPECIMEN / Unknown Venipuncture / Unknown 03/14/2025 11:28 AM EDT 03/14/2025 11:32 AM EDT Dashawn Stallings PA-C LAB BLOOD ORDERABLES F inal Result [facility] [address] [place] [address] * Ultrasound duplex arterial leg right (03/14/2025 9:15 AM EDT) 03/14/2025 8:20 AM EDT Narrative FUJI SYNAPSE CV - 03/14/2025 11:57 AM EDT Patient Info Name: Tristin Gray Age: 85 years : 1940 Gender: Male Exam Date: 03/14/2025 8:20 AM Patient Status: OUTPATIENT Site Location: [facility] Indications I73.9 - Peripheral vascular disease, unspecified Procedure Description 44503 Duplex scan of lower extremity arteries or arterial bypass grafts using B-mode, color and spectral Doppler; unilateral or limited study. Wooden Barrel Mechanic: Ernestina Campos RVT, RDMS Staff Ordering Physician: Gracy Millan MD, RPVI Conclusions * 50-99% stenosis in the right mid superficial femoral artery. * Unable to obtain right external iliac artery images due to bandaging from recent procedure. Risk Factors Patient with a history of hypertension, hyperlipidemia, CAD and PAD. Measurements RIGHT SAFETY OFFICER PSV (cm/s): 115 RIGHT SAFETY OFFICER EDV (cm/s): 7 RIGHT Prox PFA PSV [...] Distal LAUREL EDV (cm/s): 6 RIGHT Prox MEDICAL SCIENTIFIC OFFICER PSV (cm/s): 81 RIGHT Prox MEDICAL SCIENTIFIC OFFICER EDV (cm/s): 14 RIGHT Mid MEDICAL SCIENTIFIC OFFICER PSV (cm/s): 38 RIGHT Mid MEDICAL SCIENTIFIC OFFICER EDV (cm/s): 6 RIGHT Distal MEDICAL SCIENTIFIC OFFICER PSV (cm/s): 57 RIGHT Distal MEDICAL SCIENTIFIC OFFICER EDV (cm/s): 20 RIGHT Prox Gabriela PSV [...] FSVM on 03/14/2025 11:57 AM Procedure Note Radha Lomas DO - 03/14/2025 Patient Info Name: Tristin Gray Age: 85 years : 1940 Gender: Male Exam Date: 03/14/2025 8:20 AM Patient Status: OUTPATIENT Site Location: [facility] Indications I73.9 - Peripheral vascular disease, unspecified Procedure Description [id number] Duplex scan of lower extremity arteries or arterial bypassgrafts using B-mode, color and spectral Doppler; unilateral or limited study. 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 * Unable to obtain right external iliac artery images due to bandagingfrom recent procedure. Risk Factors Patient with a history of hypertension, hyperlipidemia, CAD and PAD. Measurements RIGHT SAFETY OFFICER PSV (cm/s): 115 RIGHT SAFETY OFFICER EDV (cm/s): 7 RIGHT Prox PFA PSV [...] Distal LAUREL EDV (cm/s): 6 RIGHT Prox MEDICAL SCIENTIFIC OFFICER PSV (cm/s): 81 RIGHT Prox MEDICAL SCIENTIFIC OFFICER EDV (cm/s): 14 RIGHT Mid MEDICAL SCIENTIFIC OFFICER PSV (cm/s): 38 RIGHT Mid MEDICAL SCIENTIFIC OFFICER EDV (cm/s): 6 RIGHT Distal MEDICAL SCIENTIFIC OFFICER PSV (cm/s): 57 RIGHT Distal MEDICAL SCIENTIFIC OFFICER EDV (cm/s): 20 RIGHT Prox Gabriela PSV [...] Resu lt from Last 3 Months Insurance [id number] (Home) [address] [place] [id number] [facility] ADVANTAGE CHOICE PPO Advance Directives For more information, please contact: [phone] Documents on File Type Date Recorded Patient Brake Liner Expl anation Power of Swimming Pool Attendant 10/13/2018 9:03 PM RECEI SKIP 10/13/2018 [...] 12:09 AM 01/21/2022 5:56 PM Care Teams Laboratory Chemist Relationship Specialty Start Date End Date Nikko Bird MD [address] [place], [place] [address] PCP - General Family Medicine 09/04/18 System, Provider Not In Senior Systems Software Engineer 11/09/22
--- OUTSIDE RECORDS SUMMARY | 2025-04-30 10:40 | XMS_ITS | Encounter Summary ---
Author Organization [facility] Address [address] [place] [address] Care Team Providers Care Radiologic Technology Teacher Name Role Phone Nikko Bird MD Unavailable Nikko Bird MD Primary Care Provider [phone], Mary WRIGHTN Unavailable [phone] Lorraine Morgan RN Unavailable [phone] Saab, Elaine SPINNER CONCRETE PIPE Unavailable Encounter Details Date Type Department Care Team (Late st Contact Info) Description 07/29/2024 Abstract [facility] [place] [facility] 112 [facility] 110 [place] [phone] Nikko Bird MD 112 [facility] 110 [place] [address] Social History Tobacco Use Types Packs/Day Years [...] time in the past [address] [facility], were you homeless or living in [...] documented as of this encounter Care Teams Radiologic Technology Teacher Relationship Specialty Start Date End Date Nikko Bird MD [address] [place] [address] PCP - [employer] 08/28/17 Nikko Bird MD [address] [place] [address] PCP - General Family Medicine 03/09/23MondayMary LPN [address] [place] [address] Licensed Practical Nurse Family Medicine 06/21/24 Lorraine Morgan, RN [address] [place] [address] Licensed Practical Nurse Family Medicine 10/04/2411/15 Elaine Saab LPN [address] [place] [address] 11/15/24 documented as of this encounter
--- OUTSIDE RECORDS SUMMARY | 2025-04-30 10:40 | XMS_ITS | Encounter Summary ---
Author Organization [facility] Address [address] [place] [address] Care Team Providers Care Desolderer Name Role Phone Nikko Bird MD Unavailable Nikko Bird MD Primary Care Provider [phone], Mary PLASTIC SEWER Unavailable [phone] Monday, Mary PLASTIC SEWER Unavailable [phone] Lorraine Morgan RN Unavailable Elaine Saab PLASTIC SEWER Unavailable Encounter Details Date Type Department Care Team (Late st Contact Info) Description 02/02/2023 Abstract [facility] [place] [facility] [address] [facility] 110 [place] [phone] Zoë King PA [address] [facility] 110 [place] [address] Social History Tobacco Use Types Packs/Day Years [...] on filedocumented in this encounter Care Teams Desolderer Relationship Specialty Start Date End Date Nikko Bird MD [address] [facility] 110 [place] [address] PCP - Humana 08/28/17 Nikko Bird MD [address] [place] [address] PCP - General Family Medicine 03/09/23MondayMary LPN [address] [place] [address] Licensed Practical Nurse Family Medicine 09/21/2309/21Mary LPN [address] [facility] 110 [place] [address] Licensed Practical Nurse Family Medicine 06/21/24 Lorraine Morgan, RN [address] [place], [place] [address] Licensed Practical Nurse Family Medicine 10/04/2411/15 Elaine Saab LPN [address] [facility] 110 [place] [address] 11/15/24 documented as of this encounter
--- OUTSIDE RECORDS SUMMARY | 2025-04-30 10:40 | XMS_ITS | Encounter Summary ---
Author Organization [facility] Address [address] [place] [address] Care Team Providers Care Crm Marketing Specialist Name Role Phone Nikko Bird MD Unavailable Nikko Bird MD Primary Care Provider [phone], Mary LOG RAFTER Unavailable [phone] Lorraine Morgan RN Unavailable [phone] Elaine Saab LOG RAFTER Unavailable Encounter Details Date Type Department Care Team (Late st Contact Info) Description 05/22/2024 Abstract [facility] [place] [facility] 112 [facility] 110 [place] [phone] Nikko Bird MD 112 [facility] 110 [place] [address] Social History Tobacco Use Types Packs/Day Years [...] documented as of this encounter Care Teams Crm Marketing Specialist Relationship Specialty Start Date End Date Nikko Bird MD [address] [facility] 110 [place] [address] PCP - Humana 08/28/17 Nikko Bird MD [address] [facility] 110 [place] [address] PCP - General Family Medicine 03/09/23MondayMary LPN [address] [facility] 110 [place] [address] Licensed Practical Nurse Family Medicine 06/21/24 Lorraine Morgan, KULDEEP [address] [place], [place] [address] Licensed Practical Nurse Family Medicine 10/04/2411/15 Elaine Saab LPN [address] [facility] 110 [place] [address] 11/15/24 documented as of this encounter
--- OUTSIDE RECORDS SUMMARY | 2025-04-30 10:40 | XMS_ITS | Clinical Summary ---
Author Organization [facility] Address [address] [place] [address] Phone Care Team Providers Care Golf Professional Name Role Phone Unavailable Primary Care Provider [...]
--- OUTSIDE RECORDS SUMMARY | 2025-04-30 10:40 | XMS_ITS | Encounter Summary ---
Author Organization [facility] Address [address] [place] [address] Care Team Providers Care Insurance Specialist Name Role Phone Nikko Bird MD Unavailable Nikko Bird MD Primary Care Provider [phone], Mary MANAGER TRUST Unavailable [phone] Lorraine Morgan RN Unavailable Elaine Saab MANAGER TRUST Unavailable Encounter Details Date Type Department Care Team (Late st Contact Info) Description 05/01/2024 Abstract [facility] [place] [facility] [address] [facility] [facility] 110 [place] [address] Nikko Bird MD 112 [facility] 110 [place] [address] Social History Tobacco Use Types Packs/Day Years [...] documented as of this encounter Care Teams Insurance Specialist Relationship Specialty Start Date End Date Nikko Bird MD [address] [facility] 110 [place] [address] PCP - Humana 08/28/17 Nikko Bird MD [address] [facility] 110 [place] [address] PCP - General Family Medicine 03/09/23MondayMary LPN [address] [facility] 110 [place] [address] Licensed Practical Nurse Family Medicine 06/21/24 Lorraine Morgan, KULDEEP [address] [place], [place] [address] Licensed Practical Nurse Family Medicine 10/04/2411/15 Elaine Saab LPN [address] [facility] 110 [place] [address] 11/15/24 documented as of this encounter
--- OUTSIDE RECORDS SUMMARY | 2025-04-30 10:40 | XMS_ITS | Encounter Summary ---
Author Organization [facility] Address [address] [place] [address] Care Team Providers Care Mold Tooling Technician Name Role Phone Nikko Bird MD Unavailable Nikko Bird MD Primary Care Provider [phone], Mary KEG FILLER Unavailable [phone] Lorraine Morgan RN Unavailable [phone] Elaine Saab KEG FILLER Unavailable Encounter Details Date Type Department Care Team (Late st Contact Info) Description 05/13/2024 Abstract [facility] [place] [facility] 112 [facility] 110 [place] [phone] Nikok Bird MD 112 [facility] 110 [place] [address] Social History Tobacco Use Types Packs/Day Years [...] documented as of this encounter Care Teams Mold Tooling Technician Relationship Specialty Start Date End Date Nikko Bird MD [address] [facility] 110 [place] [address] PCP - Humana 08/28/17 Nikko Bird MD [address] [facility] 110 [place] [address] PCP - General Family Medicine 03/09/23MondayMary LPN [address] [facility] 110 [place] [address] Licensed Practical Nurse Family Medicine 06/21/24 Lorraine Morgan, KULDEEP [address] [place], [place] [address] Licensed Practical Nurse Family Medicine 10/04/2411/15 Elaine Saab LPN [address] [facility] 110 [place] [address] 11/15/24 documented as of this encounter
--- OUTSIDE RECORDS SUMMARY | 2025-04-30 10:40 | XMS_ITS | Encounter Summary ---
Author Organization [facility] Address [address] [place] [address] Care Team Providers Care Marine Scientist Name Role Phone iNkko Bird MD Unavailable Nikko Bird MD Primary Care Provider [phone], Mary BULK SYSTEM OPERATOR Unavailable [phone], Mary BULK SYSTEM OPERATOR Unavailable [phone] Lorraine Morgan RN Unavailable Elaine Saab BULK SYSTEM OPERATOR Unavailable Encounter Details Date Type Department Care Team (Late st Contact Info) Description 06/26/2023 Abstract [facility] [place] [facility] 112 [facility] 110 [place] [address] Nikko Bird MD 112 [facility] 110 [place] [address] Social History Tobacco Use Types Packs/Day Years [...] on filedocumented in this encounter Care Teams Marine Scientist Relationship Specialty Start Date End Date Nikko Bird MD [address] [place] [address] PCP - Humana 08/28/17 Nikko Bird MD [address] [place] [address] PCP - General Family Medicine 03/09/23Monday, ISABELLA Hernandez [address] [place] [address] Licensed Practical Nurse Family Medicine 09/21/2309/21, ISABELLA Hernandez [address] [place] [address] Licensed Practical Nurse Family Medicine 06/21/24 Lorraine Morgan, RN [address] [place] [address] Licensed Practical Nurse Family Medicine 10/04/2411/15 Elaine Saab LPN [address] [facility] 110 [place] [address] 11/15/24 documented as of this encounter
--- OUTSIDE RECORDS SUMMARY | 2025-04-30 10:40 | XMS_ITS | Encounter Summary ---
Author Organization [facility] Address [address] [place] [address] Care Team Providers Care Amusement Park Entertainer Name Role Phone Nikko Bird MD Unavailable Nikko Bird MD Primary Care Provider [phone] Elaine Saab LPN Unavailable Reason for Visit * Reason Comments Med Refill Encounter Details Date Type Department Care Team (Late st Contact Info) Description 04/29/2025 Refill [facility] [address] [place] [phone] Nikko Bird MD [address] [facility] 110 [place] [address] Benign essential hypertension Social History Tobacco Use [...] Recorded Patient Health Questionnaire-2 Score 0 04/14/2025 [facility]at ional Health [...] any time in the past 12 m [facility], were you homeless or living in a fdc (including now)? No 06/21/2024 Sex and Gender [...] documented as of this encounter Care Teams Amusement Park Entertainer Relationship Specialty Start Date End Date Nikko Bird MD [address] [facility] 110 [place] [address] PCP - Hum[employer] 08/28/17 Nikko Bird MD [address] [facility] 110 [place] [address] PCP - General Family Medicine 03/09/23 Elaine Saab LPN [address] [facility] 110 [place] [address] 11/15/24 documented as of this encounter
--- OUTSIDE RECORDS SUMMARY | 2025-04-30 10:40 | XMS_ITS | Encounter Summary ---
Author Organization [facility] Address [address] [place] [address] Care Team Providers Care Sas Statistical Programmer Name Role Phone Nikko Bird MD Unavailable Nikko Bird MD Primary Care Provider [phone] Elaine Saab LPN Unavailable Encounter Details Date Type Department Care Team (Late st Contact Info) Description 04/21/2025 Patient Outreach [facility] [address] [place] [address] Elaine Saab LPN [address] [facility] 110 [place] [address] Social History Tobacco Use Types [...] Recorded Patient Health Questionnaire-2 Score 0 04/14/2025 [facility] Occupat ional Health [...] Flowsheet Row Patient Outreach from 04/21/2025 in [facility] with Elaine Saab LPN Week Number [...] documented as of this encounter Care Teams Sas Statistical Programmer Relationship Specialty Start Date End Date Nikko Bird MD [address] [facility] 110 [place] [address] PCP - Humana 08/28/17 Nikko Bird MD [address] [facility] 110 [place] [address] PCP - General Family Medicine 03/09/23 Elaine Saab LPN [address] [facility] 110 [place] [address] 11/15/24 documented as of this encounter
--- OUTSIDE RECORDS SUMMARY | 2025-04-30 10:40 | XMS_ITS | Encounter Summary ---
Author Organization [facility] Address [address] [place] [address] Care Team Providers Care Trauma Program Manager Name Role Phone Nikko Lovelace MD Unavailable Nikko Lovelace MD Primary Care Provider [phone], Mary WRIGHTN Unavailable [phone] Lorraine Morgan RN Unavailable [phone] Elaine Saab MATERIAL DAMAGE APPRAISER Unavailable Encounter Details Date Type Department Care [...] Recorded Patient Health Questionnaire-2 Score 0 04/26/2024 [facility] Occupat ional Health - Occupational [...] any time in the past 12 m [facility], were you homeless or living [...] PM EST Narrative 07/11/2024 9:22 [place] [address] Cardiology Report Signed Patient: TRISTIN POWELL MR#: [id number] : 1940 Acct:[id number] Age/Sex: 84 / M ADM Date: 07/11/24 Loc: LAB Attending Dr: RUSSEL ALBERTS APRN Ordering Physician: RUSSEL ALBERTS APRN Date of Service: 07/11/24 Procedure(s): CA echo limited Accession Number(s): [id number] cc: NIKKO LOVELACE ; RUSSEL ALBERTS APRN Patient Name: TRISTIN POWELL MR#: [id number] : 1940 Exam Date: 07/11/2024 Ordering Doctor: RUSSEL ALBERTS GREIGE GOODS EXAMINER ECHOCARDIOGRAM REPORT PROCEDURE: CA ECHO LIMITED INDICATIONS: [...] JUAREZ Signed By: 07/11/242121 DD/ 19 TD/TT: Adapted Physical Education Teacher: Procedure Note Radiology, Radiologist, - 07/11/[address] [address] Cardiology Report Signed Patient: TRISTIN POWELLMR#: [id number] : 1940cct:[id number] Age/Sex: 84 / MADM Date: 07/11/24 Loc: LAB Attending Dr: RUSSEL ALBERTS APRN Ordering Physician: RUSSEL ALBERTS APRN Date of Service: 07/11/24 Procedure(s): CA echo limited Accession Number(s): [id number] cc: NIKKO LOVELACE ; RUSSEL ALBERTS APRN Patient Name: TRISTIN POWELL MR#: [id number] : 1940 Exam Date: 07/11/2024 Ordering Doctor: RUSSEL ALBERTS [employer]E [employer] EXAMINER ECHOCARDIOGRAM REPORT PROCEDURE: CA ECHO LIMITED INDICATIONS: [...] MOHAMUD JUAREZ Signed By:07/11/242121 DD/ 19 TD/TT: Adapted Physical Education Teacher: Generic External Data Provider IMG XR PROCEDURES Final Result * (ABNORMAL) C-REACTIVE PROTEIN, CARDIAC (07/11/2024 1:27 PM EST) C-REACTIVE PROTEIN, CARDIAC 9.50(A) 0.00 - 3.00 mg/L [facility] Comment: Relative Risk for Future Cardiovascular Event Low <1.00 Average 1.00 - 3.00 High >3.00 Performed at: [address] [id number] Pile Fabric Knitter: Jasper Jean Baptiste PhD, Phone: [phone] 07/11/2024 1:27 PM EST 07/11/2024 1:29 PM EST Narrative [facility] - 07/12/2024 4:07 AM EST us Generic External Data Provider LAB BLOOD ORDERAB LES Final Result [facility] documented in this encounter Visit Diagnoses Not on filedocumented in this encounter Additional Health Concerns Assessment Noted Time PHQ-9 Depression Total Score: 0 04/26/20 9:00 AM EDT documented as of this encounter Care Teams Trauma Program Manager Relationship Specialty Start Date End Date Nikko Lovelace MD [address] [place] [address] PCP - Humana 08/28/17 Nikko Lovelace MD [address] [facility] 110 [place] [address] PCP - General Family Medicine 03/09/23MondayMary LPN [address] [place] [address] Licensed Practical Nurse Family Medicine 06/21/24 Lorraine Morgan, RN [address] [place] [address] Licensed Practical Nurse Family Medicine 10/04/2411/15 Elaine Saab LPN [address] [facility] 110 [place] [address] 11/15/24 documented as of this encounter
--- OUTSIDE RECORDS SUMMARY | 2025-04-30 10:40 | XMS_ITS | Encounter Summary ---
Author Organization [facility] Address [address] [place] [address] Care Team Providers Care Calculating Machine Mechanic Name Role Phone Nikko Bird MD Unavailable Nikko Bird MD Primary Care Provider [phone] Elaine Saab LPN Unavailable Encounter Details Date Type Department Care Team (Late st Contact Info) Description 04/21/[address] [facility] [address] [place] [address] Elaine Saab LPN [address] [facility] 110 [place] [address] Social History Tobacco Use Types [...] Recorded Patient Health Questionnaire-2 Score 0 04/14/2025 [facility] of Occupat [...] in the past 12 m [facility], were you homeless or living [...] documented as of this encounter Care Teams Calculating Machine Mechanic Relationship Specialty Start Date End Date Nikko Bird MD [address] [facility] 110 [place] [address] PCP - Hum[employer] 08/28/17 Nikko Bird MD [address] [facility] 110 [place] [address] PCP - General Family Medicine 03/09/23 Elaine Saab LPN [address] [facility] 110 [place] [address] 11/15/24 documented as of this encounter
--- OUTSIDE RECORDS SUMMARY | 2025-04-30 10:40 | XMS_ITS | Encounter Summary ---
Author Organization [facility] Address [address] [place] [address] Care Team Providers Care Oyster Culturist Name Role Phone Nikko Lovelace MD Unavailable Nikko Lovelace MD Primary Care Provider [phone] Elaine Saab LPN Unavailable Encounter Details Date [...] Recorded Patient Health Questionnaire-2 Score 0 04/14/2025 [facility] [...] PM EDT Narrative 04/16/2025 12:52 [place] [address] XRay Report Signed Patient: REJI POWELL MR#: [id number] : 1940 Acct:[id number] Age/Sex: 85 / M ADM Date: 04/15/25 Loc: RAD Attending Dr: Wilman Feliz D.P.M. Ordering Physician: Wilman Feliz D.P.M. Date of Service: 04/15/25 Procedure(s): XR foot RT min 3V Accession Number(s): [id number] cc: NIKKO LOVELACE ; Wilman Feliz D.P.M. [place] [address] Patient Name: REJI POWELL MRN: [id number] date: 1940 Sex: M Assigned Patient Location: [facility] Current Patient Location: Accession/Order Number: [id number] Exam Date: 04/16/2025 12:46 Report Date: 04/16/2025 [...] Rodriguez M.D. 04/16/2025 12:49 PM Dictation Location: [place] [address] Electronically authenticated by: [id number] Y Date: 04/16/2025 12:49 Dictated By: Cristian Rodriguez D.O. Signed By: 04/16/25 1252 DD/ 1249 TD/TT: Project Geologist: Procedure Note Radiology, Radiologist, MD - 04/16/2025 [place] [address] XRay Report Signed Patient: REJI POWELLMR#: [id number] : 1940cct:[id number] Age/Sex: 85 / MADM Date: 04/15/25 Loc: RAD Attending Dr: Wilman Feliz D.P.M. Ordering Physician: Wilman Feliz D.P.M. Date of Service: 04/15/25 Procedure(s): XR foot RT min 3V Accession Number(s): [id number] cc: NIKKO LOVELACE ; Wilman Feliz D.P.M. [place] [address] Patient Name: REJI POWELL MRN: [facility]:[id number] date: 1940 Sex: M Assigned Patient Location: [facility] Current Patient Location: Accession/Order Number: [id number] Exam Date: 04/16/2025 12:46 Report Date: 04/16/2025 [...] Rodriguez M.D. 04/16/2025 12:49 PM Dictation Location: [place] [address] Electronically authenticated by: [id number] Y Date: 2:49 Dictated By: Cristian Rodriguez D.O. Signed By:04/16/25 1252 DD/ 1249 TD/TT: Project Geologist: us Generic External Data Provider [facility] Final Result documented in this encounter Visit Diagnoses Not on filedocumented in this encounter Additional Health Concerns Assessment Noted Time PHQ-9 Depression Total Score: 0 04/26/20 24 9:00 AM EDT documented as of this encounter Care Teams Oyster Culturist Relationship Specialty Start Date End Date Nikko Lovelace MD [address] [address] PCP - [employer] 08/28/17 Nikko Lovelace MD [address] [facility] [address] [place] [address] PCP - General Family Medicine 03/09/23 Elaine Saab LPN [address] [address] 11/15/24 documented as of this encounter
--- OUTSIDE RECORDS SUMMARY | 2025-04-30 10:40 | XMS_ITS ---
Author Organization [facility] Address [address] [place] [address] Care Team Providers Care Cargo Operations Agent Name Role Phone Nikko Bird MD Primary Care Provider [phone] Active Problems Problem Noted Date Diagnosed Date [...] 06/06/2023 10/09/2023 Routine general medical examination at [facility] 06/06/2023 10/09/2023 Overview (10/09/2023): Last Assessment & [...] rupture 022 Coronary artery disease invo lving [place] coronary artery of [place] heart without angina pectoris 07/15/2021 S/P total hip arthroplasty 07/15/2021 S/P transmetatarsal amputation of foot, left Aortic valve regurgitation 01/01/2021 Peripheral arterial occlusive disease 01/09/2019 Gangrene of left foot 10/04/2018 Coronary artery disease invo lving coronary bypass graft of [place] heart without angina pectoris 09/05/2018 Overview (11/21/2022): [...] bypass. Pt s/p LLE critical limb ischemia Haines class 4 rest pain with distal discoloration to his toes. Pt is s/p L pop angioplasty with stent placement 08/09 at [facility] in [place], [place]. Pt was placed on Xarelto and [...] (11/21/2022): Added automatically from request for surgery [id number] Last Assessment & Plan: Heparin drip initiated, [...] (11/21/2022): Last Assessment & Plan: -Presented to [facility] 09/04/2018 as a transfer from [place] for second opinion regarding left lower extremity [...] in pain -Reports pain is uncontrolled with TEAMCENTER SOLUTION ARCHITECT Dilaudid pump, and pain does not decrease [...]
--- OUTSIDE RECORDS SUMMARY | 2025-04-30 10:40 | XMS_ITS | Clinical Summary ---
Author Organization [facility] Address [address] [place] [address] [place] [address] Care Team Providers Care Garment Sewer Hand Name Role Phone Nikko Bird MD Primary Care Provider [phone] Allergies No known active allergies Medications metoprolol [...] Diagnosed Date Coronary artery disease invo lving [place] coronary artery of [place] heart without angina pectoris 07/15/2021 S/P transmetatarsal [...] (08/08/2018): Added automatically from request for surgery [id number] Assessment & Plan (08/30/2018 3:38 PM EST): [...] this topic Medical Devices Implanted Type Area Drawing Kiln Operator Device Identifier Shelf Expiration Date Model / Serial / Lot [place] Altrx Polyethylene Acetabular Liner Neutral 36mm Id 62mm Od Implanted:Qty: 1 on 07/15/2021 by Dashawn Silvestre MD at [email or web address] REV LOC Hip Joint Right: Hip 07/27/2025 / [id number] / [id number] [place] Gription Acetabular Shell Sector 62mm Od Implanted:Qty: 1 on 07/15/2021 by Dashawn Silvestre MD at [email or web address] REV LOC Hip Joint Right: Hip 09/27/2029 / 1217-32-062 / [id number] [employer] Delta Ceramic Femoral Head +1.5 36mm Jaki 12/14 Taper Implanted:Qty: 1 on 07/15/2021 by Dashawn Silvestre MD at [facility] Hip Joint Right: Hip 04/27/2026 / 1365-36-310 / [id number] [place] Femoral Stem 08/10 Taper Size 7 Mi 133mm Implanted:Qty: 1 on 07/15/2021 by Dashawn Silvestre MD at [facility] Hip Joint Right: Hip 10/25/2025 / 1570-13-135 / [id number] Cementralizer Stem Centralizer 12.0mm Cemented Implanted:Qty: 1 on 07/15/2021 by Dashawn Silvestre MD at [facility] Hip Joint Right: Hip 09/27/2025 / 1376-21-000 / [id number] Smart Flex [id number] - [id number] Implanted:Qty: 1 on 08/09/2018 by Isaias Mayen MD at [facility] LOC Left: Leg CORDIS[employer] [id number] 03/06/2019 [id number] / / [id number] Smart Flex [id number] - [id number] Implanted:Qty: 1 on 08/09/2018 by Isaias Mayen MD at [facility] Left: Leg [employer] [id number] 07/24/2019 [id number] / / [id number] Angio-Seal 6f Vip - [id number] Implanted:Qty: 1 on 08/09/2018 by Isiaas Mayen MD at [facility] LOC Right: Groin [facility] [id number] 11/25/2018 [id number] / / [id number] Palacos R 1 X 40 Us - [id number] Implanted:Qty: 1 on 07/15/2021 by Dashawn Silvestre MD at [facility] LOC Right: Hip / / [id number] Palacos Lv 1x40 Single - [id number] Implanted:Qty: 2 on 07/15/2021 by Dashawn Silvestre MD at [facility] LOC Right: Hip HÉCTOR BIOMET [id number] / / [id number] Insurance Medicare [employer] HMO PPO Advance Directives For more information, please contact: [phone] (7:30 AM - 6PM [facility], Monday-Monday) * Full Code (Latest Code Status on File) Date Activated Date Inactivated Comments 07/15/2021 2:40 PM * Full Code Date Activated Date Inactivated Comments 09/03/2018 11:29 AM 07/15/2021 2:40 PM * Full Code Date Activated Date Inactivated Comments 09/01/2011 7:48 AM 09/04/2011 4:13 PM Care Teams Garment Sewer Hand Relationship Specialty Start Date End Date Nikko Bird MD [address] [place] [address] PCP - General Family Medicine 07/31/18
--- OUTSIDE RECORDS SUMMARY | 2025-04-30 10:40 | XMS_ITS | Encounter Summary ---
Author Organization [facility] Address [address] [place] [address] Care Team Providers Care Telephone Supervisor Name Role Phone Nikko Bird MD Unavailable Nikko Bird MD Primary Care Provider [phone], Mary CERTIFIED DENTAL ASSISTANT Unavailable [phone], Mary CERTIFIED DENTAL ASSISTANT Unavailable [phone] Lorraine Morgan RN Unavailable Elaine Saab CERTIFIED DENTAL ASSISTANT Unavailable Encounter Details Date Type Department Care Team (Late st Contact Info) Description 04/15/2023 [facility] [place] 112 [facility] 110 [place] [address] Nikko Bird MD [address] [facility] [address] [place], [place] [address] Social History Tobacco Use Types Packs/Day Years [...] on filedocumented in this encounter Care Teams Telephone Supervisor Relationship Specialty Start Date End Date Nikko Bird MD [address] [facility] [address] [place] [id number] PCP - [employer] 08/28/17 Nikko Bird MD [address] [place] [address] [place] [address] PCP - General Family Medicine 03/09/23Monday, ISABELLA Hernandez [address] [place] [address] Licensed Practical Nurse Family Medicine 09/21/2309/21, ISABELLA Hernandez [address] [place] [address] Licensed Practical Nurse Family Medicine 06/21/24 Lorraine Morgan, RN [address] [place] [address] Licensed Practical Nurse Family Medicine 10/04/2411/15 Elaine Saab LPN [address] [place] [address] 11/15/24 documented as of this encounter
--- OUTSIDE RECORDS SUMMARY | 2025-04-30 10:40 | XMS_ITS | Encounter Summary ---
Author Organization [facility] Address [address] [place] [address] Care Team Providers Care Merchandise Complaint Adjuster Name Role Phone Nikko Bird MD Unavailable Nikko Bird MD Primary Care Provider [phone], Mary ELECTRICIAN APPRENTICE POWERHOUSE Unavailable [phone] Lorraine Morgan RN Unavailable [phone] Elaine Saab ELECTRICIAN APPRENTICE POWERHOUSE Unavailable Encounter Details Date Type Department Care Team (Late st Contact Info) Description 05/14/[address] [facility] [place] [facility] 112 [facility] 110 [place] [phone] Nikko Bird MD 112 [facility] 110 [place] [address] Social History Tobacco Use Types Packs/Day Years [...] documented as of this encounter Care Teams Merchandise Complaint Adjuster Relationship Specialty Start Date End Date Nikko Bird MD [address] [facility] 110 [place] [address] PCP - [employer] 08/28/17 Nikko Bird MD [address] [facility] [address] [place] [address] PCP - General Family Medicine 03/09/23MondayMary LPN [address] [facility] 110 [place] [address] Licensed Practical Nurse Family Medicine 06/21/24 Lorraine Morgan, KULDEEP [address] [place], [place] [id number] Licensed Practical Nurse Family Medicine 10/04/2411/15 Elaine Saab LPN [address] [facility] [address] [place] [address] 11/15/24 documented as of this encounter
--- OUTSIDE RECORDS SUMMARY | 2025-04-30 10:40 | XMS_ITS | Encounter Summary ---
Author Organization [facility] Address [address] [place] [address] Care Team Providers Care Wood Flooring Specialist Name Role Phone Nikko Bird MD Unavailable Nikko Bird MD Primary Care Provider [phone], Mary CONTRACT FORESTER Unavailable [phone] Lorraine Morgan RN Unavailable [phone] Elaine Saab CONTRACT FORESTER Unavailable Encounter Details Date Type Department Care Team (Late st Contact Info) Description 05/13/2024 Abstract [facility] [place] [facility] [address] [facility] 110 [place] [id number] Nikko Bird MD 112 [facility] 110 [place] [address] Social History Tobacco Use Types Packs/Day Years [...] documented as of this encounter Care Teams Wood Flooring Specialist Relationship Specialty Start Date End Date Nikko Bird MD [address] [facility] 110 [place] [address] PCP - [employer] 08/28/17 Nikko Bird MD [address] [facility] 110 [place] [address] PCP - General Family Medicine 03/09/23MondayMary LPN [address] [place] [address] [place] [address] Licensed Practical Nurse Family Medicine 06/21/24 Lorraine Morgan, KULDEEP [address] [place], [place] [address] Licensed Practical Nurse Family Medicine 10/04/2411/15 Elaine Saab LPN [address] [facility] 110 [place] [address] 11/15/24 documented as of this encounter
--- OUTSIDE RECORDS SUMMARY | 2025-04-30 10:41 | XMS_ITS | Clinical Summary ---
Author Organization [facility] Healthcare Address [address] [place] [address] Care Team Providers Care Coffee Urn Attendant Name Role Phone Nikko Lovelace MD Unavailable Nikko Lovelace MD Primary Care Provider [phone] Elaine Saab LPN Unavailable Allergies Active Allergy [...] Hx of CABG 05/28/2024 Secondary hypercoagulable state ([facility]) 2023 Pulmonary hypertension, unspecified 04/26/2024 Assessment & Plan (11/04/2024 11:25 AM EDT): Has water pills From COPD Other thrombophilia ([facility]) 03/21/2024 Assessment & Plan (03/21/2024 3:10 PM [...] bronchitis 04/09/2023 Atherosclerotic heart diseas e of [place] coronary artery without angina pectoris 04/09/2023 Carotid [...] PM EST): Pain meds effective Polymyalgia rheumatica ([facility]) 04/09/2023 Primary osteoarthritis of right hip 04/09/2023 [...] for a goal BMI <30. Atherosclerosis of [place] ar teries of extremities with rest pain, unspecified extremity 09/04/2018 Overview (06/05/2023): Last Assessment & Plan: Pt s/p LLE angiogram with Dr Hahn who feels that the pt has no further endovascular options. He has consulted Dr. Millan for a possible tibial bypass. Pt s/p LLE critical limb ischemia [place] class 4 rest pain with distal discoloration to his toes. Pt is s/p L pop angioplasty with stent placement 08/09 at [facility] in [place], [place]. Pt was placed on Xarelto and [...] bypass. Pt s/p LLE critical limb ischemia [place] class 4 rest pain with distal discoloration to his toes. Pt is s/p L pop angioplasty with stent placement 08/09 at [facility] in [place], [place]. Pt was placed on Xarelto and [...] (06/05/2023): Added automatically from request for surgery [id number] Last Assessment & Plan: Heparin drip initiated, [...] management Added automatically from request for surgery [id number] Last Assessment & Plan: Heparin drip initiated, [...] the importance of taking them as prescribed. [employer] diet handouts Assessment & Plan (09/19/2023 10:45 [...] (06/05/2023): Last Assessment & Plan: -Presented to [facility] 09/04/2018 as a transfer from [place] for second opinion regarding left lower extremity [...] in pain -Reports pain is uncontrolled with DRAMA DIRECTOR Dilaudid pump, and pain does not decrease [...] questions Last Assessment & Plan: -Presented to [facility] 09/04/2018 as a transfer from [place] for second opinion regarding left lower extremity [...] in pain -Reports pain is uncontrolled with DRAMA DIRECTOR Dilaudid pump, and pain does not decrease [...] Department Care Team Description 04/29/2025 Refill [facility] [address] [place] [address] Nikko Lovelace MD Benign essential hypertension 04/29/2025 Telephone [facility] [address] [place] [address] Sheree Murrell Medication Question (Has a terrible cold and runny nose wanted to know if you could zuly in a z-pack for him.) 04/21/2025 Telephone [facility] [address] [place] [address] Elaine Saab LPN 04/21/2025 Patient Outreach [facility] [address] [place] [address] Elaine Saab LPN 04/16/2025 Clinisync Result Encounter NOMS External Department Unsolicited Provider, Generic External Data 04/15/2025 8:00 AM EDT Ancillary Procedure [facility] [address] [place] [address] Osteomyelitis of right foot, unspecified type (HCC) 04/15/2025 Clinisync Result Encounter NOMS External Department Unsolicited Provider, Generic External Data 04/15/2025 Patient Outreach [facility] [address] [place] [address] Elaine Saab LPN 04/15/2025 Results Follow-Up [facility] [address] [place] [address] Nikko Lovelace MD MR foot right wo IV contrast 04/15/2025 Travel 04/14/2025 1:30 PM EDT Office Visit [facility] [address] [place] [address] Nikko Lovelace MD PVD (peripheral vascular disease) with claudication (Primary Dx); Ischemic toe ulcer, right, with 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); Osteomyelitis of right foot, unspecified type (HCC) 04/14/2025 Travel 04/14/2025 Patient Outreach [facility] [address] [place] [address] Elaine Saab LPN 04/10/2025 Abstract [facility] [address] [place] [address] Emmanuel Gonzalez DPM 04/10/2025 Telephone [facility] [address] [place] [address] Zoë King PA posible med interaction 04/10/2025 Abstract [facility] [address] [place] [address] Nikko Lovelace MD 04/09/2025 Abstract [facility] [address] [place] [address] Nikko Lovelace MD 04/09/2025 Telephone [facility] [address] [place] [address] Zoë King PA 04/09/2025 Refill [facility] [address] [place] [address] Zoë King PA Paroxysmal atrial fibrillation (HCC) 04/08/2025 11:30 AM EDT Office Visit [facility] [address] [place] [address] Zoë King PA PVD (peripheral vascular disease) with claudication (Primary Dx); Acquired absence of left foot (HCC); Ischemic toe ulcer, right, with 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) 04/08/2025 External Result Encounter NOMS External Department Unsolicited Zoë King PA 04/08/2025 Abstract [facility] [address] [place] [address] Nikko Lovelace MD 04/08/2025 Bamboo flowsheet [facility] [address] [place] [address] Zoë King PA 04/08/2025 Travel 04/07/2025 Patient Outreach [facility] [address] [place] [address] Elaine Saab LPN 04/03/2025 Refill [facility] [address] [place] [address] Nikko Lovelace MD PVD (peripheral vascular disease) with claudication 03/31/2025 1:45 PM EDT Office Visit [facility] [address] [place] [address] Nikko Lovelace MD PVD (peripheral vascular disease) with claudication; History of prostate cancer; Urinary hesitancy 03/31/2025 Travel 03/31/2025 Patient Outreach [facility] [address] [place] [address] Elaine Saab LPN 03/24/2025 Telephone [facility] [address] [place] [address] Elaine Saab LPN 03/24/2025 Patient Outreach [facility] [place] [address] Elaine Saab LPN 03/24/2025 Abstract [facility] [address] [facility] [address] [place] [address] Nikko Lovelace MD 03/20/2025 Abstract [facility] [address] [place] [address] Nikko Lovelace MD 03/17/2025 Abstract [facility] [address] [place] [address] Nikko Lovelace MD 03/12/2025 Abstract [facility] [address] [facility] [address] [place] [address] Nikko Lovelace MD 03/11/2025 Abstract [facility] [address] [place] [address] Nikko Lovelace MD 03/06/2025 Refill [facility] [address] [facility] [address] [place] [address] Mary Wilson, PIOTR History of prostate cancer; Urinary hesitancy 02/13/2025 Refill [facility] [address] [facility] [address] [place] [address] Nikko Lovelace MD Primary insomnia; Other chronic [...] Recorded Patient Health Questionnaire-2 Score 0 04/14/2025 [facility] - Occupational Stress [...] living in a usp (including now)? No 06/21/2024 Sex and Gender [...] EDT Narrative 04/16/2025 12:52 PM EDT The [address] [address] XRay Report Signed Patient: TRISTIN GRAY MR#: [id number] : 1940 Acct:[id number] Age/Sex: 85 / M ADM Date: 04/15/25 Loc: RAD Attending Dr: Savanna Feliz D.P.M. Ordering Physician: Savanna Feliz D.P.M. Date of Service: 04/15/25 Procedure(s): XR foot RT min 3V Accession Number(s): [id number] cc: NIKKO LOVELACE ; Savanna Feliz D.P.M. The [place] [address] Patient Name: TRISTIN GRAY MRN: [id number] date: 1940 Sex: M Assigned Patient Location: [facility] Current Patient Location: Accession/Order Number: [id number] Exam Date: 04/16/2025 12:46 Report Date: 04/16/2025 [...] Rodriguez M.D. 04/16/2025 12:49 PM Dictation Location: [place] [address] Electronically authenticated by: [id number] Y Date: 04/16/2025 12:49 Dictated By: Cristian Rodriguez D.O. Signed By: 04/16/25 1252 DD/ 1249 TD/TT: Etcher Enameling: Procedure Note Radiology, Radiologist, - 04/16/2025 [place] [address] XRay Report Signed Patient: TRISTIN GRAYMR#: [id number] : 1940cct:[id number] Age/Sex: 85 / MADM Date: 04/15/25 Loc: RAD Attending Dr: Savanna Feliz D.P.M. Ordering Physician: Savanna Feliz D.P.M. Date of Service: 04/15/25 Procedure(s): XR foot RT min 3V Accession Number(s): [id number] cc: NIKKO LOVELACE ; Savanna Feliz D.P.M. [place] [address] Patient Name: TRISTIN GRAY MRN: [facility]:[id number] date: 1940 Sex: M Assigned Patient Location: [facility] Current Patient Location: Accession/Order Number: [id number] Exam Date: 04/16/2025 12:46 Report Date: 04/16/2025 [...] Rodriguez M.D. 04/16/2025 12:49 PM Dictation Location: [place] [address] Electronically authenticated by: [id number] Y Date: 2:49 Dictated By: Cristian Rodriguez D.O. Signed By:04/16/25 1252 DD/ 1249 TD/TT: Etcher Enameling: us Generic External Data Provider [facility] Final Result * (ABNORMAL) ALL SED RATE (04/15/2025 1:47 PM EDT) TBH SED RATE 53(H) <=20 mm/hr [facility] 04/15/2025 1:47 PM EDT 04/15/2025 1:48 PM EDT Narrative [facility] - 04/15/2025 2:12 PM EDT us Generic External Data Provider [facility] F inal Result [facility] * (ABNORMAL) ALL CBC WITH AUTO DIFF [...] CLINIS[facility] F inal Result Performing Organization Address [facility]/ZIP Co de Phone Number [facility] TB * (ABNORMAL) ALL C REACTIVE PROTEIN (04/15/2025 1:47 PM EDT) Pathologist [facility] C REACTIVE PROTEIN 0.64(H) <=0.50 mg/dL TBH 04/15/2025 1:47 PM EDT 04/15/2025 1:48 PM EDT Narrative [facility] - 04/15/2025 2:20 PM EDT Generic External Data Provider [facility] F inal Result Performing Organization Address [facility] de Phone Number [facility] TB * (ABNORMAL) [...] 0.70 - 1.30 mg/dL TBH TBH EGFR-AF VENE[place] 55(L) >=60 mL/min/1.7 3m 2 TBH TBH EGFR-NON AF [place] 45(L) >=60 mL/min/1.7 3m 2 TBH BUN [...] IMG MRI PROCEDURES Final Result * (ABNORMAL) [facility] (04/08/2025 12:00 AM EDT) MECA 25.731(A) 23.000 - 31.199 ppm 04/09/2025 1:18 PM EDT [facility] MECA Detected(A) 23.000 - 31.199 ppm 04/09/2025 1:18 PM EDT [facility] TET B, TET M 23.751(A) 23.000 - 27.778 ppm 04/09/2025 1:18 PM EDT [facility] TET B, TET M Detected(A) 23.000 - 27.778 ppm 04/09/2025 1:18 PM EDT [facility] ACINETOBACTER BAUMANNII (ACUTE WOUND) 0 19.961 - 24.689 ppm 04/09/2025 1:19 PM EDT [facility] ACINETOBACTER BAUMANNII (ACUTE WOUND) Not Detected 19.961 - 24.689 ppm 04/09/2025 1:19 PM EDT [facility] BACTEROIDES FRAGILIS, VULGATUS (ACUTE WOUND) 23.270(A) 19.961 - 24.689 ppm 04/09/2025 1:18 PM EDT [facility] BACTEROIDES FRAGILIS, VULGATUS (ACUTE WOUND) Detected(A) 19.961 - 24.689 ppm 04/09/2025 1:18 PM EDT [facility] CITROBACTER FREUNDII (ACUTE WOUND) 0 19.961 - 24.689 ppm 04/09/2025 1:19 PM EDT [facility] CITROBACTER FREUNDII (ACUTE WOUND) Not Detected 19.961 - 24.689 ppm 04/09/2025 1:19 PM EDT [facility] CLOSTRIDIUM PERFRINGENS, NOVYI, SEPTICUM (ACUTE WOUND) 0 19.961 - 24.689 ppm 04/09/2025 1:19 PM EDT [facility] CLOSTRIDIUM PERFRINGENS, NOVYI, SEPTICUM (ACUTE WOUND) Not Detected 19.961 - 24.689 ppm 04/09/2025 1:19 PM EDT [facility] ENTEROBACTER CLOACAE COMPLEX, KLEBSIELLA (ENTEROBACTER) AEROGENES ((A) 0 19.961 - 24.689 ppm 04/09/2025 1:19 PM EDT [facility] ENTEROBACTER CLOACAE COMPLEX, KLEBSIELLA (ENTEROBACTER) AEROGENES ((A) Not Detected 19.961 - 24.689 ppm 04/09/2025 1:19 PM EDT [facility] ENTEROCOCCUS FAECALIS, FAECIUM 0 19.961 - 24.689 ppm 04/09/2025 1:19 PM EDT [facility] ENTEROCOCCUS FAECALIS, FAECIUM Not Detected 19.961 - 24.689 ppm 04/09/2025 1:19 PM EDT [facility] ESCHERICHIA COLI (ACUTE WOUND) 0 19.961 - 24.689 ppm 04/09/2025 1:19 PM EDT [facility] ESCHERICHIA COLI (ACUTE WOUND) Not Detected 19.961 - 24.689 ppm 04/09/2025 1:19 PM EDT [facility] KLEBSIELLA PNEUMONIAE, OXYTOCA (ACUTE WOUND) 0 19.961 - 24.689 ppm 04/09/2025 1:19 PM EDT [facility] KLEBSIELLA PNEUMONIAE, OXYTOCA (ACUTE WOUND) Not Detected 19.961 - 24.689 ppm 04/09/2025 1:19 PM EDT [facility] PROTEUS MIRABILIS, VULGARIS (ACUTE WOUND) 22.966(A) 19.961 - 24.689 ppm 04/09/2025 1:18 PM EDT [facility] PROTEUS MIRABILIS, VULGARIS (ACUTE WOUND) Detected(A) 19.961 - 24.689 ppm 04/09/2025 1:18 PM EDT [facility] PSEUDOMONAS AERUGINOSA (ACUTE WOUND) 0 19.961 - 24.689 ppm 04/09/2025 1:19 PM EDT [facility] PSEUDOMONAS AERUGINOSA (ACUTE WOUND) Not Detected 19.961 - 24.689 ppm 04/09/2025 1:19 PM EDT [facility] SERRATIA MARCESCENS (ACUTE WOUND) 0 19.961 - 24.689 ppm 04/09/2025 1:19 PM EDT [facility] SERRATIA MARCESCENS (ACUTE WOUND) Not Detected 19.961 - 24.689 ppm 04/09/2025 1:19 PM EDT [facility] STAPHYLOCOCCUS AUREUS (ACUTE WOUND) 24.790(A) 19.961 - 24.689 ppm 04/09/2025 1:18 PM EDT [facility] STAPHYLOCOCCUS AUREUS (ACUTE WOUND) Detected(A) 19.961 - 24.689 ppm 04/09/2025 1:18 PM EDT [facility] STREPTOCOCCUS AGALACTIAE (GROUP B STREP) (ACUTE WOUND) 0 19.961 - 24.689 ppm 04/09/2025 1:19 PM EDT [facility] STREPTOCOCCUS AGALACTIAE (GROUP B STREP) (ACUTE WOUND) Not Detected 19.961 - 24.689 ppm 04/09/2025 1:19 PM EDT [facility] STREPTOCOCCUS PYOGENES (GROUP A STREP) (ACUTE WOUND) 0 19.961 - 24.689 ppm 04/09/2025 1:19 PM EDT [facility] STREPTOCOCCUS PYOGENES (GROUP A STREP) (ACUTE WOUND) Not Detected 19.961 - 24.689 ppm 04/09/2025 1:19 PM EDT [facility] VIBRIO CHOLERAE, PARAHAEMOLYTICUS, VULNIFICUS (ACUTE WOUND) 0 23.000 - 31.296 ppm 04/09/2025 1:19 PM EDT [facility] VIBRIO CHOLERAE, PARAHAEMOLYTICUS, VULNIFICUS (ACUTE WOUND) Not Detected 23.000 - 31.296 ppm 04/09/2025 1:19 PM EDT [facility] Wound 04/08/2025 04/09/2025 4:1 0 AM EDT us Zoë BROWER LAB BLOOD ORDERABLES Edited Re sult - Final [facility] [address] [place] [address] * HERPES SIMPLEX VIRUS 1 (04/08/2025 12:00 AM EDT) [facility] HERPES SIMPLEX VIRUS 1 0 23.000 - 32.355 ppm 04/09/2025 11:32 AM EDT [facility] HERPES SIMPLEX VIRUS 1 Not Detected 23.000 - 32.355 ppm 04/09/2025 11:32 AM EDT [facility] HERPES SIMPLEX VIRUS 2 0 23.000 - 31.433 ppm 04/09/2025 11:32 AM EDT [facility] HERPES SIMPLEX VIRUS 2 Not Detected 23.000 - 31.433 ppm 04/09/2025 11:32 AM EDT [facility] HUMAN MONKEYPOX VIRUS 0 23.000 - 32.544 ppm 04/09/2025 11:37 AM EDT [facility] HUMAN MONKEYPOX VIRUS Not Detected 23.000 - 32.544 ppm 04/09/2025 11:37 AM EDT [facility] VARICELLA ZOSTER VIRUS (HUMAN HERPESVIRUS 3) 0 23.000 - 31.749 ppm 04/09/2025 11:32 AM EDT [facility] VARICELLA ZOSTER VIRUS (HUMAN HERPESVIRUS 3) Not Detected 23.000 - 31.749 ppm 04/09/2025 11:32 AM EDT [facility] Wound 04/08/2025 04/09/2025 4:1 0 AM EDT us Zoë BROWER LAB BLOOD ORDERABLES Final Res ult [facility] [address] [place] [address] from Last 3 Months Insurance [employer] MEDICARE ADVANTAGE Care Teams Coffee Urn Attendant Relationship Specialty Start Date End Date Nikko Lovelace MD [address] [facility] 110 [place] [address] PCP - [employer] 08/28/17 Nikko Lovelace MD [address] [facility] 110 [place] [address] PCP - General Family Medicine 03/09/23 Elaine Saab LPN [address] [facility] 110 [place] [address] 11/15/24
--- OUTSIDE RECORDS SUMMARY | 2025-04-30 10:42 | XMS_ITS | Encounter Summary ---
Author Organization [facility] Address [address] [place] [address] Care Team Providers Care Supervisor Engine Repair Name Role Phone Nikko Bird MD Unavailable Nikko Bird MD Primary Care Provider [phone] Monday, Mary ASSOCIATE FINANCIAL PLANNER Unavailable [phone] Lorraine Morgan RN Unavailable [phone] Saab, Elaine ASSOCIATE FINANCIAL PLANNER Unavailable Encounter Details Date Type Department Care Team (Late st Contact Info) Description 11/07/2023 Abstract [facility] [place] [facility] [address] [facility] 110 [place] [address] Nikko Bird MD [address] [facility] 110 [place] [address] Social History Tobacco Use Types Packs/Day Years [...] filedocumented in this encounter Care Teams Supervisor Engine Repair Relationship Specialty Start Date End Date Nikko Bird MD [address] [facility] 110 [place], [place] [address] PCP - [employer] 08/28/17 Nikko Bird MD [address] [place] [address] PCP - General Family Medicine 03/09/23Monday, ISABELLA Hernandez [address] [place] [address] Licensed Practical Nurse Family Medicine 06/21/24 Lorraine Morgan, RN [address] [place] [address] Licensed Practical Nurse Family Medicine 10/04/2411/15 Elaine Saab LPN [address] [facility] 110 [place] [address] 11/15/24 documented as of this encounter
--- OUTSIDE RECORDS SUMMARY | 2025-04-30 10:42 | XMS_ITS | Encounter Summary ---
Author Organization [facility] Address [address] [place] [address] Care Team Providers Care Green Chain Offbearer Name Role Phone Nikko Bird MD Unavailable Nikko Bird MD Primary Care Provider [phone] Monday, Mary BALE STACKER Unavailable [phone] Lorraine Morgan RN Unavailable Saab, Elaine BALE STACKER Unavailable Encounter Details Date Type Department Care Team (Late st Contact Info) Description 03/25/2024 Abstract [facility] [place] [facility] [address] [facility] 110 [place] [address] Nikko Bird MD [address] [facility] 110 [place] [address] Social History Tobacco Use Types Packs/Day Years [...] on filedocumented in this encounter Care Teams Green Chain Offbearer Relationship Specialty Start Date End Date Nikko Bird MD [address] [facility] 110 [place], [place] [phone] PCP - [employer] 08/28/17 Nikko Bird MD [address] [place] [address] PCP - General Family Medicine 03/09/23Monday, ISABELLA Hernandez [address] [place] [address] Licensed Practical Nurse Family Medicine 06/21/24 Lorraine Morgan, RN [address] [place] [address] Licensed Practical Nurse Family Medicine 10/04/2411/15 Elaine Saab LPN [address] [facility] 110 [place] [address] 11/15/24 documented as of this encounter
--- OUTSIDE RECORDS SUMMARY | 2025-04-30 10:42 | XMS_ITS | Encounter Summary ---
Author Organization [facility] Address [address] [place] [address] Care Team Providers Care Incinerator Plant General Supervisor Name Role Phone Nikko Bird MD Unavailable Nikko Bird MD Primary Care Provider [phone], Mary CARVER AND CHECKERER SPECIALS Unavailable [phone] Monday, Mary CARVER AND CHECKERER SPECIALS Unavailable [phone] Lorraine Morgan RN Unavailable Elaine Saab CARVER AND CHECKERER SPECIALS Unavailable Encounter Details Date Type Department Care Team (Late st Contact Info) Description 08/14/2023 Abstract [facility] [place] [facility] 112 [facility] 110 [place] [address] Nikko Bird MD [address] [facility] 110 [place] [address] Social History Tobacco Use Types Packs/Day Years [...] on filedocumented in this encounter Care Teams Incinerator Plant General Supervisor Relationship Specialty Start Date End Date Nikko Bird MD [address] [place] [address] PCP - [employer] 08/28/17 Nikko Bird MD [address] [place] [address] PCP - General Family Medicine 03/09/23Monday, ISABELLA Hernandez [address] [place] [address] Licensed Practical Nurse Family Medicine 09/21/2309/21, ISABELLA Hernandez [address] [place] [address] Licensed Practical Nurse Family Medicine 06/21/24 Lorraine Morgan, RN [address] [place] [address] Licensed Practical Nurse Family Medicine 10/04/2411/15 Elaine Saab LPN [address] [facility] 110 [place] [address] 11/15/24 documented as of this encounter
--- OUTSIDE RECORDS SUMMARY | 2025-04-30 10:42 | XMS_ITS | Encounter Summary ---
Author Organization [facility] Address [address] [place] [address] Care Team Providers Care Hot Top Liner Helper Name Role Phone Nikko Bird MD Unavailable Nikko Bird MD Primary Care Provider [phone] Elaine Saab LPN Unavailable Encounter Details Date Type Department Care Team (Late st Contact Info) Description 04/15/2025 Results Follow-Up [facility] [address] [facility] 110 [place] [address] Nikko Bird MD 112 [facility] 110 [place] [address] MR galindo right wo IV contrast Social [...] Recorded Patient Health Questionnaire-2 Score 0 04/14/2025 [facility] - Occupational Stress Questionnaire Answer [...] any time in the past 12 m [facility], were you homeless or living [...] with Dr. Feliz. Is uspecthe will need half-way antibiotic. Dr. Feliz will probably do a debridement or partial amputtion. He may benefit from being admitted to a SNF for antibiotics. [facility] go to [facility] and [facility] if that is the route that [...] documented as of this encounter Care Teams Hot Top Liner Helper Relationship Specialty Start Date End Date Nikko Bird MD [address] [facility] 110 [place] [address] PCP - [employer] 08/28/17 Nikko Bird MD [address] [facility] 110 [place] [address] PCP - General Family Medicine 03/09/23 Elaine Saab LPN 112 [facility] 110 [place] [address] 11/15/24 documented as of this encounter
--- OUTSIDE RECORDS SUMMARY | 2025-04-30 10:42 | XMS_ITS | Encounter Summary ---
Author Organization [facility] Address [address] [place] [address] Care Team Providers Care Bus Dispatcher Interstate Name Role Phone Nikko Bird MD Unavailable Nikko Bird MD Primary Care Provider [phone] Monday, Mary HYPERCIL CORE TRANSFORMER ASSEMBLER Unavailable [phone] Lorraine Morgan RN Unavailable [phone] Saab, Elaine HYPERCIL CORE TRANSFORMER ASSEMBLER Unavailable Encounter Details Date Type Department Care Team (Late st Contact Info) Description 10/12/[address] [facility] [address] [facility] [address] [place] [address] Nikko Bird MD [address] [facility] [address] [place] [address] Social History Tobacco Use Types Packs/Day Years [...] on filedocumented in this encounter Care Teams Bus Dispatcher Interstate Relationship Specialty Start Date End Date Nikko Bird MD [address] [facility] [address] [place], [place] [id number] PCP - [employer] 08/28/17 Nikko Bird MD [address] [facility] [address] [place] [address] PCP - General Family Medicine 03/09/23Monday, ISABELLA Hernandez [address] [place] [address] Licensed Practical Nurse Family Medicine 06/21/24 Lorraine Morgan, RN [address] [place] [address] Licensed Practical Nurse Family Medicine 10/04/2411/15 Elaine Saab LPN [address] [facility] [address] [place] [address] 11/15/24 documented as of this encounter
--- OUTSIDE RECORDS SUMMARY | 2025-04-30 10:42 | XMS_ITS ---
Author Organization [facility] Address [address] [place] [address] Care Team Providers Care Hardboard Factory Worker Name Role Phone Nikko Bird MD Unavailable Nikko Bird MD Primary Care Provider [phone] Elaine Saab LPN Unavailable 30 Day Monitoring Program Status:Closed (Closed) Start date:03/24/2025 Enrollment date:03/24/2025 End date:04/22/2025 Close reason:Actively enrolled in CCM Continued Care and Services Coordination
--- OUTSIDE RECORDS SUMMARY | 2025-04-30 10:42 | XMS_ITS | Encounter Summary ---
Author Organization [facility] Address [address] [place] [address] Care Team Providers Care Carpentry Foreman Name Role Phone Nikko Bird MD Primary Care Provider [phone] System, Provider Not In Unavailable Unavaila ble Encounter Details Date Type Department Care Team (Latest Contact Info) Description 04/23/2025 Travel Social History Tobacco Use Types Packs/Day Years Used Date Smoking Tobacco: Never Smokeless Tobacco: Never Alcohol Use Standard Drinks/Week Comments Not Currently 0 (1 standard drink = 0.6 oz pur e alcohol) [facility] Utilities Answer Date Recorded In the [...] documented as of this encounter Care Teams Carpentry Foreman Relationship Specialty Start Date End Date Nikko Bird MD [address] [place] [id number] PCP - General Family Medicine 09/04/18 System, Provider Not In Tobacco Drier Operator 11/09/22 documented as of this encounter
--- OUTSIDE RECORDS SUMMARY | 2025-04-30 10:42 | XMS_ITS ---
Author Organization [facility] Address [address] [place] [address] Care Team Providers Care Forming Press Operator Name Role Phone Nikko Bird MD Unavailable Nikko Bird MD Primary Care Provider [phone] Elaine Saab LPN Unavailable Chronic Care Management (CCM) Status:Enrolled (Active) Start date:06/21/2024 Enrollment date:06/21/2024 Enrollment reason:Identified using hospital discharge data Overview 06/21/24, 9:45 AM - Marymonday, BLIND HOOKER- Patient gives verbal consent to be enrolled in CCM Program and understands there could be a bill for this service. Case Team Name Relationship Phone Elaine Saab LPN(Responsible Staff) [phone] Continued Care and Services Coordination
[2025-04-30 12:01] LABS: Anion Gap 13.9; Blood Urea Nitrogen 13.0 mg/dL (7.0-18.0); Calcium 9.3 mg/dL (8.5-10.1); Carbon Dioxide 24.9 mmol/L (21.0-32.0); Chloride 106 mmol/L (98-107); Estimated GFR (African America >60 (>=60 mL/min/1.73m^2); Estimated GFR (Non-African Ame >60 (>=60 mL/min/1.73m^2); Glucose 103 mg/dL (74-106); Potassium 4.8 mmol/L (3.5-5.1); Sodium 140 mmol/L (136-145)
[2025-04-30 12:56] LABS: Hematocrit 34.7 % (42.0-54.0); Hemoglobin 11.3 g/dL (14.0-18.0); Mean Corpuscular HGB Conc 32.6 g/dL (29.9-35.2); Mean Corpuscular Hemoglobin 30.0 pg (25.9-34.0); Mean Corpuscular Volume 92.0 fL (80.0-94.0); Platelet Count 180 10^3/uL (150-450); Red Blood Count 3.77 10^6/uL (4.70-6.10); White Blood Count 2.6 10^3/uL (4.0-11.0)
[2025-04-30 13:20] LABS: Eosinophils Absolute Manual 0.26 10^3/uL (0.00-0.70); Eosinophils Percent Manual 10.0 % (0.9-7.0); Lymphocytes Absolute Manual 0.62 10^3/uL (1.20-3.80); Lymphocytes Percent Manual 24.0 % (20.5-60.0); Monocytes Absolute Manual 0.52 10^3/uL (0.30-0.80); Monocytes Percent Manual 20.0 % (1.7-12.0); Segmented Neut Absolute Manual 1.19 10^3/uL (1.4-6.5); Segmented Neutrophils % Manual 46.0 (43.0-75.0)
[2025-04-30 13:21] LABS: Basophils Abs Manual 0.00 10^3/uL (0.00-0.10); Basophils Percent Manual 0.0 % (0.2-2.0)
== END 2025-04-30 10:35 | disposition home or self-care (01) ==
LOC: LAB 10:37
PROVIDERS: PCP Family Medicine; Visit Provider Physician Assistant
DX: M86.171 Other acute osteomyelitis, right ankle and foot (principal)
CPT/HCPCS: 36415; 80048; 85007; 85027; 85652; 86140

== ENCOUNTER 2025-04-30 11:07 | Emergency (ER) | payer MEDICARE, SELFPAY ==
--- OUTSIDE RECORDS SUMMARY | 2025-04-23 12:25 | XMS_ITS | Encounter Summary ---
Author Organization [facility] Address [address] [place] [address] Care Team Providers Care Learning And Development Director Name Role Phone Nikko Bird MD Primary Care Provider [phone] System, Provider Not In Unavailable Unavaila ble Reason for Referral * Cardio (Routine) - Pending Review Specialty Diagnoses / Procedures Referred By Contac t Referred To Contact Cardiology Diagnoses PVD (peripheral vascular disease) Critical lower limb ischemia (HCC) Procedures US Doppler ankle/brachial index Gracy Millan MD [address] [place] [address] Phone: tel: fax: Referral ID Status Reason Start Date Expiration Date V isits Requested Visits Authorized [id number] Pending Review 04/03/2025 04/03/2026 1 1 Reason for Visit * Cardio (Routine) - Pending Review Specialty Diagnoses / Procedures Referred By Contac t Referred To Contact Cardiology Diagnoses PVD (peripheral vascular disease) Critical lower limb ischemia (HCC) Procedures US Doppler ankle/brachial index Gracy Millan MD [address] [place], [place] [id number] Phone: tel: fax: Referral ID Status Reason Start Date Expiration Date V isits Requested Visits Authorized [id number] Pending Review 04/03/2025 04/03/2026 1 1 Encounter Details Date Type Department Care Team (Late st Contact Info) Description 04/23/2025 12:25 PM EDT - 04/23/2025 11:59 PM EDT Hospital Encounter [facility] [address] [place] [address] Gracy Millan MD [address] [place] [address] Discharge Disposition: Home Social History Tobacco Use Types Packs/Day Years Used Date Smoking Tobacco: Never Smokeless Tobacco: Never Alcohol Use Standard Drinks/Week Comments Not Currently 0 (1 standard drink = 0.6 oz pur e alcohol) [facility] Utilities Answer Date Recorded In [...] living in a [facility] (including now)? No 03/14/2025 Sex and Gender [...] a day . naloxone (NARCAN) 4 mg/actuation [place] Administer 1 spray into one nostril for [...] Name Priority Date/Time Associated Diagnosis Comments US ANKLE/BRACHIAL INDICES EXTREMITY LIMITED Routine 04/23/2025 2:18 PM EDT PVD (peripheral vascular disease) Critical lower limb ischemia (HCC) documented in this encounter Results * US Doppler ankle/brachial index (04/23/2025 2:18 PM EDT) 04/23/2025 12:5 3 PM EDT Narrative FUJI SYNAPSE CV - 04/23/2025 2:41 PM EDT Patient Info Name: Tristin Gray Age: 85 years : 1940 Gender: Male Exam Date: 04/23/2025 12:53 PM Patient Status: OUTPATIENT Site Location: [facility] Indications I73.9 - Peripheral vascular disease, unspecified I70.229 - Atherosclerosis of [place] arteries of extremities with rest pain, unspecified extremity Procedure Description 45977 Limited bilateral noninvasive physiologic studies of upper or lower extremity arteries with bidirectional Doppler/PVR waveform analysis at 1-2 levels. Bitumen Plant Operator: Ying Fiore RDCS, T Staff Ordering Physician: Gracy Millan MD, RPVI Conclusions * Right. * Right ankle brachial index is normal. YAMILE is 0.96. Previous YAMILE 0.57. * Mild small vessel disease at the transmetatarsal level in the right foot. * Right toe brachial index not obtained due to wound. * Left. * Left ankle brachial index indicates mild peripheral artery disease. YAMILE is 0.61. Previous YAMILE 0.41. 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 Prior Study Date: 03/20/2025 Segmental BP RIGHT Brachial A mmH RIGHT HAND HIDE STRETCHER mmH RIGHT HAND HIDE STRETCHER Index: 0.96 RIGHT DPA mmH RIGHT DPA Index: 0.92 RIGHT YAMILE Index: 0.96 LEFT Brachial A mm[facility] LEFT HAND HIDE STRETCHER Index: 0.48 LEFT HAND HIDE STRETCHER mmH LEFT DPA Index: 0.61 LEFT DPA mm[facility] LEFT YAMILE Index: 0.61 Doppler RIGHT HAND HIDE STRETCHER Waveform: Multiphasic RIGHT DPA Waveform: Multiphasic LEFT HAND HIDE STRETCHER Waveform: Monophasic LEFT DPA Waveform: Monophasic , PVR RIGHT Ankle Grade: Abnormal RIGHT Transmetarsal Grade: Abnormal LEFT Ankle Grade: Abnormal Report Signatures Finalized by Nemo Conner MD, PHD, RVT on 04/23/2025 02:41 PM Procedure Note Nemo Conner MD - 04/23/2025 Patient Info Name: Tristin Gray Age: 85 years : 1940 Gender: Male Exam Date: 04/23/2025 12:53 PM Patient Status: OUTPATIENT Site Location: [facility] Indications I73.9 - Peripheral vascular disease, unspecified I70.229 - Atherosclerosis of [place] arteries of extremities withrest pain, unspecified extremity Procedure Description 38434 Limited bilateral noninvasive physiologic studies of upper orlower extremity arteries with bidirectional Doppler/PVR waveform analysis at1-2 levels. Bitumen Plant Operator: Ying Fiore RDCS, RVT Staff Ordering Physician: Gracy Millan MD, RPVI Conclusions * Right. * Right ankle brachial index is normal. YAMILE is 0.96. Previous ABI0.57. * Mild small vessel disease at the transmetatarsal level in the rightfoot. * Right toe brachial index not obtained due to wound. * Left. * Left ankle brachial index indicates mild peripheral artery disease.YAMILE is 0.61. Previous YAMILE 0.41. 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 Prior Study Date: 03/20/2025 Segmental BP RIGHT Brachial A mmH RIGHT HAND HIDE STRETCHER mmH RIGHT HAND HIDE STRETCHER Index: 0.96 RIGHT DPA mm[facility] RIGHT DPA Index: 0.92 RIGHT YAMILE Index: 0.96 LEFT Brachial A mm[facility] LEFT HAND HIDE STRETCHER Index: 0.48 LEFT HAND HIDE STRETCHER mm[facility] LEFT DPA Index: 0.61 LEFT DPA mmH LEFT YAMILE Index: 0.61 Doppler RIGHT HAND HIDE STRETCHER Waveform: Multiphasic RIGHT DPA Waveform: Multiphasic LEFT HAND HIDE STRETCHER Waveform: Monophasic LEFT DPA Waveform: Monophasic , PVR RIGHT Ankle Grade: Abnormal RIGHT Transmetarsal Grade: Abnormal LEFT Ankle Grade: Abnormal Report Signatures Finalized by Nemo Conner MD, PHD, RVT on 04/23/2025 02:41 PM us Gracy [...] Start Date End Date Nikko Bird MD [address] [place] [id number] PCP - General Family Medicine 09/04/18 System, Provider Not In Maternity Floor Supervisor 11/09/22 documented as of this encounter
--- OUTSIDE RECORDS SUMMARY | 2025-04-23 12:25 | XMS_ITS | Encounter Summary ---
Author Organization [facility] Address [address] [place] [address] Care Team Providers Care Assistant Credit Manager Name Role Phone Nikko Bird MD Primary Care Provider [phone] System, Provider Not In Unavailable Unavaila ble Reason for Referral * Cardio (Routine) - Pending Review Specialty Diagnoses / Procedures Referred By Jason christie Referred To Contact Cardiology Diagnoses PVD (peripheral vascular disease) Critical lower limb ischemia (HCC) Procedures US Duplex Bypass Graft LE Bilateral Gracy Millan MD [address] [place] [address] Phone: tel: fax: Referral ID Status Reason Start Date Expiration Date V isits Requested Visits Authorized [id number] Pending Review 04/03/2025 04/03/2026 1 1 Reason for Visit * Cardio (Routine) - Pending Review Specialty Diagnoses / Procedures Referred By Jason christie Referred To Contact Cardiology Diagnoses PVD (peripheral vascular disease) Critical lower limb ischemia (HCC) Procedures US Duplex Bypass Graft LE Bilateral Gracy Millan MD [address] [place], [place] [id number] Phone: tel: fax: Referral ID Status Reason Start Date Expiration Date V isits Requested Visits Authorized [id number] Pending Review 04/03/2025 04/03/2026 1 1 Encounter Details Date Type Department Care Team (Late st Contact Info) Description 04/23/2025 12:25 PM EDT - 04/23/2025 11:59 PM EDT Hospital Encounter [facility] [address] [place] [address] Gracy Millan MD [address] [place] [address] Discharge Disposition: Home Social History Tobacco Use Types Packs/Day Years Used Date Smoking Tobacco: Never Smokeless Tobacco: Never Alcohol Use Standard Drinks/Week Comments Not Currently 0 (1 standard drink = 0.6 oz pur e alcohol) [facility] Utilities Answer Date Recorded In the past [...] any time in the past 12 m [facility], were you homeless or living in [...] a day . naloxone (NARCAN) 4 mg/actuation [place] Administer 1 spray into one nostril for [...] PM Patient Status: OP SERIES Site Location: [facility] Indications I73.9 - Peripheral vascular disease, unspecified I70.229 - Atherosclerosis of [place] arteries of extremities with rest pain, unspecified extremity Procedure Description 13454 Duplex scan of lower extremity arteries or arterial bypass grafts using B-mode, color and spectral Doppler; unilateral or limited study. Circular Sawyer Stone: Jigna Vera RDMS, RVT Staff Ordering Physician: [...] Artery Segment: Gabriela LEFT Inflow Artery Segment: SWEATBAND FLANGER LEFT Inflow Artery PSV: 126 LEFT Inflow [...] PM Patient Status: OP SERIES Site Location: [facility] Indications I73.9 - Peripheral vascular disease, unspecified I70.229 - Atherosclerosis of [place] arteries of extremities withrest pain, unspecified extremity Procedure Description 36612 Duplex scan of lower extremity arteries or arterial bypassgrafts using B-mode, color and spectral Doppler; unilateral or limited study. Circular Sawyer Stone: Jigna Vera RDMS, RVT Staff Ordering Physician: [...] Artery Segment: Gabriela LEFT Inflow Artery Segment: SWEATBAND FLANGER LEFT Inflow Artery PSV: 126 LEFT Inflow [...] as of this encounter Care Teams Assistant Credit Manager Relationship Specialty Start Date End Date Nikko Bird MD [address] [place] [address] PCP - General Family Medicine 09/04/18 System, Provider Not In Sales Operations 11/09/22 documented as of this encounter
--- OUTSIDE RECORDS SUMMARY | 2025-04-23 15:15 | XMS_ITS | Encounter Summary ---
Author Organization [facility] Address [address] [place] [address] Care Team Providers Care Education Director Name Role Phone Nikko Bird MD Primary Care Provider [phone] System, Provider Not In Unavailable Unavaila ble Reason for Visit * Reason Comments Wound Check POST-OP - FU - WOUND CHECK - S/P R FEM-TIB BYPASS, 03/17 - BLE DUPLEX GRAFT, YAMILE'S PRIOR APPT TODAY - APPT PER KULDEEP BOX Encounter Details Date Type Department Care Team (Late st Contact Info) Description 04/23/2025 3:15 PM EDT Follow-Up [facility] [id number] [place] [phone] Gracy Millan MD [facility] [address] [address] Critical lower limb ischemia (HCC) (Primary Dx) Social History Tobacco Use Types Packs/Day Years Used Date Smoking Tobacco: Never Smokeless Tobacco: Never Alcohol Use Standard Drinks/Week Comments Not Currently 0 (1 standard drink = 0.6 oz pur e alcohol) [facility] Utilities Answer Date Recorded In the past [...] in the past 12 m [facility], were you homeless or living in a jail (including now)? No 03/14/2025 Sex and Gender [...] wound care under the care of a photovoltaic fabrication technician. He is on his ASA, xarelto and [...] documented as of this encounter Care Teams Education Director Relationship Specialty Start Date End Date [place], Rugen M, MD [address] [place] [address] PCP - General Family Medicine 09/04/18 System, Provider Not In Pharmaceutical Officer 11/09/22 documented as of this encounter
[2025-04-30 11:22] VITALS: BP 135/62; PULSE 78; TEMP 36.6; O2SAT 94; BMI 31.5
--- OUTSIDE RECORDS SUMMARY | 2025-04-30 11:33 | XMS_ITS | Encounter Summary ---
Author Organization [facility] Address [address] [place] [address] Care Team Providers Care Top Precipitator Operator Helper Name Role Phone Nikko Bird MD Unavailable Nikko Bird MD Primary Care Provider [phone], Mary EPIC BEACON ANALYST Unavailable [phone], Mary EPIC BEACON ANALYST Unavailable [phone] Lorraine Morgan RN Unavailable Elaine Saab EPIC BEACON ANALYST Unavailable Encounter Details Date Type Department Care Team (Late st Contact Info) Description 04/15/2023 Abstract [facility] [place] 112 [facility] 110 [place] [address] Nikko Bird MD 112 [facility] 110 [place], [place] [id number] Social History Tobacco Use Types Packs/Day Years [...] on filedocumented in this encounter Care Teams Top Precipitator Operator Helper Relationship Specialty Start Date End Date Nikko Bird MD 112 [facility] 110 [place] [id number] PCP - [employer] 08/28/17 Nikko Bird MD [address] [place] [address] PCP - General Family Medicine 03/09/23Monday, ISABELLA Hernandez [address] [place] [address] Licensed Practical Nurse Family Medicine 09/21/2309/21, ISABELLA Hernandez [address] [place] [address] Licensed Practical Nurse Family Medicine 06/21/24 Lorraine Morgan, RN [address] [place] [address] Licensed Practical Nurse Family Medicine 10/04/2411/15 Elaine Saab LPN [address] [place] [address] 11/15/24 documented as of this encounter
--- OUTSIDE RECORDS SUMMARY | 2025-04-30 11:33 | XMS_ITS | Encounter Summary ---
Author Organization [facility] Address [address] [place] [address] Care Team Providers Care Ux Interaction Designer Name Role Phone Nikko Bird MD Unavailable Nikko Bird MD Primary Care Provider [phone], Mary ART TRACER Unavailable [phone], Mary ART TRACER Unavailable [phone] Lorraien Morgan RN Unavailable Elaine Saab ART TRACER Unavailable Encounter Details Date Type Department Care Team (Late st Contact Info) Description 02/02/2023 Abstract [facility] [place] [facility] [address] [facility] 110 [place] [id number] Zoë King PA [address] [facility] 110 [place] [address] Social History Tobacco Use Types Packs/Day Years [...] on filedocumented in this encounter Care Teams Ux Interaction Designer Relationship Specialty Start Date End Date Nikko Bird MD [address] [facility] 110 [place] [address] PCP - Humana 08/28/17 Nikko Bird MD [address] [place] [address] PCP - General Family Medicine 03/09/23MondayMary LPN [address] [place] [address] Licensed Practical Nurse Family Medicine 09/21/2309/21Mary LPN [address] [facility] 110 [place] [address] Licensed Practical Nurse Family Medicine 06/21/24 Lorraine [place], RN [address] [place], [place] [id number] Licensed Practical Nurse Family Medicine 10/04/2411/15 Elaine Saab LPN [address] [facility] 110 [place] [address] 11/15/24 documented as of this encounter
--- OUTSIDE RECORDS SUMMARY | 2025-04-30 11:33 | XMS_ITS | Encounter Summary ---
Author Organization [facility] Address [address] [place] [address] Care Team Providers Care Sludge Control Attendant Name Role Phone Nikko Bird MD Unavailable Nikko Bird MD Primary Care Provider [phone], Mary WRIGHTN Unavailable [phone], Mary FOREIGN AGENT Unavailable [phone] Lorraine [place] RN Unavailable Elaine Saab FOREIGN AGENT Unavailable Encounter Details Date Type Department Care Team (Late st Contact Info) Description 01/25/2023 Orders Only [facility] [place] [address] [facility] 110 [place] [address] Nikko Bird MD [address] [place] [address] Social History Tobacco Use Types Packs/Day Years [...] on filedocumented in this encounter Care Teams Sludge Control Attendant Relationship Specialty Start Date End Date Nikko Bird MD [address] [place] [address] PCP - Humana 08/28/17 Nikko Bird MD [address] [facility] [address] [place] [address] PCP - General Family Medicine 03/09/23Monday, ISABELLA Hernandez [address] [place] [address] Licensed Practical Nurse Family Medicine 09/21/2309/21Mary LPN [address] [place] [address] Licensed Practical Nurse Family Medicine 06/21/24 Lorraine [place], RN [address] [place] [address] Licensed Practical Nurse Family Medicine 10/04/2411/15 Elaine Saab LPN [address] [place] [address] 11/15/24 documented as of this encounter
--- OUTSIDE RECORDS SUMMARY | 2025-04-30 11:34 | XMS_ITS | Clinical Summary ---
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 07/15/2021 S/P transmetatarsal [...] (08/08/2018): Added automatically from request for surgery [id number] Assessment & Plan (08/30/2018 3:38 PM EST): [...] this topic Medical Devices Implanted Type Area Visual Lead Device Identifier Shelf Expiration Date Model / Serial / Lot [place] Altrx Polyethylene Acetabular Liner Neutral 36mm Id 62mm Od Implanted:Qty: 1 on 07/15/2021 by Dashawn Silvestre MD at [employer] [facility] LOC Hip Joint Right: Hip 07/27/2025 / [id number] / [id number] [place] Gription Acetabular Shell Sector 62mm Od Implanted:Qty: 1 on 07/15/2021 by Dashawn Silvestre MD at [employer] [facility] LOC Hip Joint Right: Hip 09/27/2029 / [id number] / [id number] [employer] Delta Ceramic Femoral Head +1.5 36mm Jaki 12/14 Taper Implanted:Qty: 1 on 07/15/2021 by Dashawn Silvestre MD at [facility] Hip Joint Right: Hip 04/27/2026 / [id number] / [id number] [place] Femoral Stem 08/10 Taper Size 7 Mi 133mm Implanted:Qty: 1 on 07/15/2021 by Dashawn Silvestre MD at [facility] Hip Joint Right: Hip 10/25/2025 / [id number] / [id number] Cementralizer Stem Centralizer 12.0mm Cemented Implanted:Qty: 1 on 07/15/2021 by Dashawn Silvestre MD at [facility] Hip Joint Right: Hip 09/27/2025 / 1376-21-000 / [id number] Smart Flex [id number] - [id number] Implanted:Qty: 1 on 08/09/2018 by Isaias Mayen MD at [facility] LOC Left: Leg CORDIS/TE[employer] [id number] 03/06/2019 [id number] / / [id number] Smart Flex [id number] - [id number] Implanted:Qty: 1 on 08/09/2018 by Isaias Mayen MD at [facility] Left: Leg CORDIS/TE[employer]R [employer] [id number] 07/24/2019 [id number] / / [id number] Angio-Seal 6f Vip - [id number] Implanted:Qty: 1 on 08/09/2018 by Isaias Mayen MD at [facility] LOC Right: Groin [facility] [id number] 11/25/2018 [id number] / / [id number] Palacos R 1 X 40 Us - [id number] Implanted:Qty: 1 on 07/15/2021 by Dashawn Silvestre MD at [facility] LOC Right: Hip / / [id number] Palacos Lv 1x40 Single - [id number] Implanted:Qty: 2 on 07/15/2021 by Dashawn Silvestre MD at [facility] LOC Right: Hip HÉCTOR BIOMET [id number] / / [id number] Insurance Medicare [employer] HMO PPO Advance Directives For more information, please contact: [phone] (7:30 AM - 6PM [facility], Monday-Monday) * Full Code (Latest Code Status on File) Date Activated Date Inactivated Comments 07/15/2021 2:40 PM * Full Code Date Activated Date Inactivated Comments 09/03/2018 11:29 AM 07/15/2021 2:40 PM * Full Code Date Activated Date Inactivated Comments 09/01/2011 7:48 AM 09/04/2011 4:13 PM Care Teams Petroleum Analyst Relationship Specialty Start Date End Date Nikko Bird MD [address] [place] [address] PCP - General Family Medicine 07/31/18
--- OUTSIDE RECORDS SUMMARY | 2025-04-30 11:34 | XMS_ITS | Encounter Summary ---
Author Organization [facility] Address [address] [place] [address] Care Team Providers Care Vp Talent Management Name Role Phone Nikko Bird MD Unavailable Nikko Bird MD Primary Care Provider [phone] Elaine Saab LPN Unavailable Reason for Visit * Reason Comments Med Refill Encounter Details Date Type Department Care Team (Late st Contact Info) Description 04/29/2025 Refill [facility] [address] [place] [id number] Nikko Bird MD [address] [facility] 110 [place] [address] Benign essential hypertension Social History Tobacco Use [...] Recorded Patient Health Questionnaire-2 Score 0 04/14/2025 [facility] Occupat ional Health - Occupational [...] any time in the past 12 m [facility], were you homeless or living [...] documented as of this encounter Care Teams Vp Talent Management Relationship Specialty Start Date End Date Nikko Bird MD [address] [facility] 110 [place] [address] PCP - Hum[employer] 08/28/17 Nikko Bird MD [address] [facility] 110 [place] [address] PCP - General Family Medicine 03/09/23 Elaine Saab LPN [address] [facility] 110 [place] [address] 11/15/24 documented as of this encounter
--- OUTSIDE RECORDS SUMMARY | 2025-04-30 11:34 | XMS_ITS | Encounter Summary ---
Author Organization [facility] Address [address] [place] [address] Care Team Providers Care Syrup Mixer Assistant Name Role Phone Nikko Bird MD Unavailable Nikko Bird MD Primary Care Provider [phone] Elaine Saab LPN Unavailable Encounter Details Date Type Department Care Team (Late st Contact Info) Description 04/21/2025 Telephone [facility] [address] [place] [address] Elaine Saab LPN [address] [facility] 110 [place] [address] Social History Tobacco Use Types [...] 04/14/2025 [facility] Occupat ional Health - [...] time in the past 12 m [facility], were you homeless or living [...] documented as of this encounter Care Teams Syrup Mixer Assistant Relationship Specialty Start Date End Date Nikko Bird MD [address] [facility] 110 [place] [address] PCP - [employer] 08/28/17 Nikko Bird MD [address] [facility] 110 [place] [address] PCP - General Family Medicine 03/09/23 Elaine Saab LPN [address] [facility] 110 [place] [address] 11/15/24 documented as of this encounter
--- OUTSIDE RECORDS SUMMARY | 2025-04-30 11:34 | XMS_ITS | Encounter Summary ---
Author Organization [facility] Healthcare Address [address] [place] [address] Care Team Providers Care Sales Representative Metals Name Role Phone Nikko Bird MD Unavailable Nikko Bird MD Primary Care Provider [phone] Elaine Saab LPN Unavailable Encounter Details Date Type Department Care Team (Late st Contact Info) Description 04/21/2025 Patient Outreach [facility] POP[facility]ATION [facility] [address] [place] [place] [address] Elaine Saab LPN [address] [facility] 110 [place] [address] Social History Tobacco Use Types [...] Recorded Patient Health Questionnaire-2 Score 0 04/14/2025 [facility] Occupat ional Health - [...] in the past 12 m [facility], were you homeless or living [...] Flowsheet Row Patient Outreach from 04/21/2025 in [facility] with Elaine Saab LPN Week Number Call [...] as of this encounter Care Teams Sales Representative Metals Relationship Specialty Start Date End Date Nikko Bird MD [address] [facility] 110 [place] [address] PCP - Hum[employer] 08/28/17 Nikko Bird MD [address] [facility] 110 [place] [address] PCP - General Family Medicine 03/09/23 Elaine Saab LPN [address] [facility] 110 [place] [address] 11/15/24 documented as of this encounter
--- OUTSIDE RECORDS SUMMARY | 2025-04-30 11:34 | XMS_ITS ---
Author Organization [facility] Address [address] [place] [address] Care Team Providers Care School Adjustment Counselor Name Role Phone Nikko Bird MD Primary Care Provider [phone] Active Problems Problem Noted Date Diagnosed Date [...] 06/06/2023 10/09/2023 Routine general medical examination at [facility] 06/06/2023 10/09/2023 Overview (10/09/2023): Last [...] rupture 022 Coronary artery disease invo lving [place] coronary artery of [place] heart without angina pectoris 07/15/2021 S/P total hip arthroplasty 07/15/2021 S/P transmetatarsal amputation of foot, left Aortic valve regurgitation 01/01/2021 Peripheral arterial occlusive disease 01/09/2019 Gangrene of left foot 10/04/2018 Coronary artery disease invo lving coronary bypass graft of [place] heart without angina pectoris 09/05/2018 Overview (11/21/2022): [...] bypass. Pt s/p LLE critical limb ischemia [place] class 4 rest pain with distal discoloration to his toes. Pt is s/p L pop angioplasty with stent placement 08/09 at [facility] in [place], [place]. Pt was placed on Xarelto and [...] (11/21/2022): Added automatically from request for surgery [id number] Last Assessment & Plan: Heparin drip initiated, [...] (11/21/2022): Last Assessment & Plan: -Presented to [facility] 09/04/2018 as a transfer from [place] for second opinion regarding left lower extremity [...] in pain -Reports pain is uncontrolled with DYSLEXIA TEACHER Dilaudid pump, and pain does not decrease [...]
--- OUTSIDE RECORDS SUMMARY | 2025-04-30 11:34 | XMS_ITS | Encounter Summary ---
Author Organization [facility] Address [address] [place] [address] Care Team Providers Care Inspector Filter Tip Name Role Phone Nikko Bird MD Unavailable Nikko Bird MD Primary Care Provider [phone] Elaine Saab LPN Unavailable Encounter Details Date Type Department Care Team (Late st Contact Info) Description 03/11/2025 Abstract [facility] [address] [facility] 110 [place] [address] Nikko Bird MD [address] [facility] 110 [place] [address] Social History Tobacco Use Types Packs/Day Years [...] Recorded Patient Health Questionnaire-2 Score 0 01/09/2025 [facility] - Occupational [...] documented as of this encounter Care Teams Inspector Filter Tip Relationship Specialty Start Date End Date Nikko Bird MD [address] [address] PCP - [employer] 08/28/17 Nikko Bird MD [address] [facility] 110 [place] [address] PCP - General Family Medicine 03/09/23 Elaine Saab LPN [address] [address] 11/15/24 documented as of this encounter
--- OUTSIDE RECORDS SUMMARY | 2025-04-30 11:34 | XMS_ITS | Encounter Summary ---
Author Organization [facility] Address [address] [place] [address] Care Team Providers Care Electric Meter Repairer Helper Name Role Phone Nikko Bird MD Unavailable Nikko Bird MD Primary Care Provider [phone] Elaine Saab LPN Unavailable Encounter Details Date Type Department Care Team (Late st Contact Info) Description 04/08/2025 Abstract [facility] [address] [facility] 110 [place] [address] Nikko Bird MD [address] [facility] [address] [place] [address] Social History Tobacco Use Types Packs/Day Years [...] Recorded Patient Health Questionnaire-2 Score 0 04/08/2025 [facility] - Occupational [...] as of this encounter Care Teams Electric Meter Repairer Helper Relationship Specialty Start Date End Date Nikko Bird MD [address] [address] PCP - [employer] 08/28/17 Nikko Bird MD [address] [facility] 110 [place] [address] PCP - General Family Medicine 03/09/23 Elaine Saab LPN [address] [facility] [address] [place] [address] 11/15/24 documented as of this encounter
--- OUTSIDE RECORDS SUMMARY | 2025-04-30 11:34 | XMS_ITS | Clinical Summary ---
Author Organization [facility] Address [address] [place] [address] Care Team Providers Care Supervisor Finishing Name Role Phone Nikko Bird MD Primary Care Provider [phone] Allergies Active Allergy Reactions Criticality Noted Date [...] mg SL tabletIndications: Coronary artery disease involving [place] coronary artery of chinik heart without angina pectoris Place 1 tablet [...] 06/06/2023 10/09/2023 Routine general medical examination at [facility] facility 06/06/2023 10/09/2023 Overview (10/09/2023): Last Assessment [...] rupture 022 Coronary artery disease invo lving [place] coronary artery of [place] heart without angina pectoris 07/15/2021 S/P total hip arthroplasty 07/15/2021 S/P transmetatarsal amputation of foot, left Aortic valve regurgitation 01/01/2021 Peripheral arterial occlusive disease 01/09/2019 Gangrene of left foot 10/04/2018 Coronary artery disease invo lving coronary bypass graft of [place] heart without angina pectoris 09/05/2018 Overview (11/21/2022): [...] bypass. Pt s/p LLE critical limb ischemia [place] class 4 rest pain with distal discoloration to his toes. Pt is s/p L pop angioplasty with stent placement 08/09 at [facility] in [place], [place]. Pt was placed on Xarelto and [...] (11/21/2022): Added automatically from request for surgery [id number] Last Assessment & Plan: Heparin drip initiated, [...] (11/21/2022): Last Assessment & Plan: -Presented to [facility] 09/04/2018 as a transfer from [place] for second opinion regarding left lower extremity [...] in pain -Reports pain is uncontrolled with INTRUSION ANALYST Dilaudid pump, and pain does not decrease [...] Type Department Care Team Description 03/11/2025 Refill [facility] [place] [address] [place] [address] Kassandra Vallejo CNP Mixed hyperlipidemia [...] patient's age to complete this topic Insurance [facility] MEDICARE ADVANTAGE Care Teams Supervisor Finishing Relationship Specialty Start Date End Date Nikko Bird MD [address] [place] [address] PCP - General 11/21/22
--- OUTSIDE RECORDS SUMMARY | 2025-04-30 11:34 | XMS_ITS | Encounter Summary ---
Author Organization [facility] Address [address] [place] [address] Care Team Providers Care Executive Casino Host Name Role Phone Nikko Lovelace MD Unavailable Nikko Lovelace MD Primary Care Provider [phone] Elaine Saab LPN Unavailable Encounter Details Date [...] Health Questionnaire-2 Score 0 04/14/2025 [facility] - [...] in the past 12 m [facility], were you homeless or living in a [...] PM EDT Narrative 04/16/2025 12:52 [place] [address] XRay Report Signed Patient: REJI POWELL MR#: [id number] : 1940 Acct:[id number] Age/Sex: 85 / M ADM Date: 04/15/25 Loc: RAD Attending Dr: Wilman Feliz D.P.M. Ordering Physician: Wilman eFliz D.P.M. Date of Service: 04/15/25 Procedure(s): XR foot RT min 3V Accession Number(s): [id number] cc: NIKKO LOVELACE ; Wilman Feliz D.P.M. [place] [address] Patient Name: REJI POWELL MRN: [id number] date: 1940 Sex: M Assigned Patient Location: [facility] Current Patient Location: Accession/Order Number: [id number] Exam Date: 04/16/2025 12:46 Report Date: 04/16/2025 [...] Rodriguez M.D. 04/16/2025 12:49 PM Dictation Location: [place] [address] Electronically authenticated by: [id number] Y Date: 04/16/2025 12:49 Dictated By: Cristian Rodriguez D.O. Signed By: 04/16/25 1252 DD/ 1249 TD/TT: Police Commanding Officer: Procedure Note Radiology, Radiologist, MD - 04/16/2025 [place] [address] XRay Report Signed Patient: REJI POWELLMR#: [id number] : 1940cct:[id number] Age/Sex: 85 / MADM Date: 04/15/25 Loc: RAD Attending Dr: Wilman Feliz D.P.M. Ordering Physician: Wilman Feliz D.P.M. Date of Service: 04/15/25 Procedure(s): XR foot RT min 3V Accession Number(s): [id number] cc: NIKKO LOVELACE ; Wilman Feliz D.P.M. The [place] [address] Patient Name: REJI POWELL MRN: [facility]:[id number] date: 1940 Sex: M Assigned Patient Location: [facility] Current Patient Location: Accession/Order Number: [id number] Exam Date: 04/16/2025 12:46 Report Date: 04/16/2025 [...] Rodriguez M.D. 04/16/2025 12:49 PM Dictation Location: [place] [address] Electronically authenticated by: [id number] Y Date: 2:49 Dictated By: Cristian Rodriguez D.O. Signed By:04/16/25 1252 DD/ 1249 TD/TT: Police Commanding Officer: us Generic External Data Provider [facility] Final Result documented in this encounter Visit Diagnoses Not on filedocumented in this encounter Additional Health Concerns Assessment Noted Time PHQ-9 Depression Total Score: 0 04/26/20 24 9:00 AM EDT documented as of this encounter Care Teams Executive Casino Host Relationship Specialty Start Date End Date Nikko Lovelace MD [address] [address] PCP - [employer] 08/28/17 Nikko Lovelace MD [address] [facility] 110 [place] [address] PCP - General Family Medicine 03/09/23 Elaine Saab LPN [address] [place] [address] [address] 11/15/24 documented as of this encounter
--- OUTSIDE RECORDS SUMMARY | 2025-04-30 11:34 | XMS_ITS | Encounter Summary ---
Author Organization [facility] Address [address] [place] [address] Care Team Providers Care Learning Services Coordinator Name Role Phone Nikko Bird MD Unavailable Nikko Bird MD Primary Care Provider [phone] Elaine Saab LPN Unavailable Encounter Details Date Type Department Care Team (Late st Contact Info) Description 03/20/2025 Abstract [facility] [address] [facility] 110 [place] [address] Nikko Bird MD [address] [facility] 110 [place] [address] Social History Tobacco Use Types Packs/Day Years [...] Recorded Patient Health Questionnaire-2 Score 0 01/09/2025 [facility] - Occupational [...] time in the past 12 m [facility], were you homeless or living in [...] as of this encounter Care Teams Learning Services Coordinator Relationship Specialty Start Date End Date Nikko Bird MD [address] [place] [address] [address] PCP - [employer] 08/28/17 Nikko Bird MD [address] [facility] 110 [place] [address] PCP - General Family Medicine 03/09/23 Elaine Saab LPN [address] [place] [address] [address] 11/15/24 documented as of this encounter
--- OUTSIDE RECORDS SUMMARY | 2025-04-30 11:34 | XMS_ITS | Encounter Summary ---
Author Organization [facility] Address [address] [place] [address] Care Team Providers Care Neonatal Nurse Name Role Phone Nikko Bird MD Unavailable Nikko Bird MD Primary Care Provider [phone] Elaine Saab LPN Unavailable Encounter Details Date Type Department Care Team (Late st Contact Info) Description 03/24/2025 Abstract [facility] [address] [facility] 110 [place] [address] Nikko Bird MD [address] [facility] 110 [place] [address] Social History Tobacco Use Types Packs/Day Years [...] Recorded Patient Health Questionnaire-2 Score 0 01/09/2025 [facility] [...] any time in the past 12 m [facility], were you homeless or living [...] documented as of this encounter Care Teams Neonatal Nurse Relationship Specialty Start Date End Date Nikko Bird MD [address] [address] PCP - [employer] 08/28/17 Nikko Bird MD [address] [facility] 110 [place] [address] PCP - General Family Medicine 03/09/23 Elaine Saab LPN [address] [place] [address] [address] 11/15/24 documented as of this encounter
--- OUTSIDE RECORDS SUMMARY | 2025-04-30 11:34 | XMS_ITS | Clinical Summary ---
Author Organization [facility] Address [address] [place] [address] Care Team Providers Care Manager Spring Name Role Phone Nikko Lovelace MD Unavailable Nikko Lovelace MD Primary Care Provider [phone] Elaine Saab LPN Unavailable Allergies Active Allergy [...] Hx of CABG 05/28/2024 Secondary hypercoagulable state ([facility]) 2023 Pulmonary hypertension, unspecified 04/26/2024 Assessment & Plan (11/04/2024 11:25 AM EDT): Has water pills From COPD Other thrombophilia ([facility]) 03/21/2024 Assessment & Plan (03/21/2024 3:10 PM [...] bronchitis 04/09/2023 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 He has consulted Dr. Millan for a possible tibial bypass. Pt s/p LLE critical limb ischemia [place] class 4 rest pain with distal discoloration to his toes. Pt is s/p L pop angioplasty with stent placement 08/09 at [facility] in [place], [place]. Pt was placed on Xarelto and [...] bypass. Pt s/p LLE critical limb ischemia [place] class 4 rest pain with distal discoloration to his toes. Pt is s/p L pop angioplasty with stent placement 08/09 at [facility] in [place], [place]. Pt was placed on Xarelto and [...] (06/05/2023): Added automatically from request for surgery [id number] Last Assessment & Plan: Heparin drip initiated, [...] management Added automatically from request for surgery [id number] Last Assessment & Plan: Heparin drip initiated, [...] the importance of taking them as prescribed. Platfora diet handouts Assessment & Plan (09/19/2023 10:45 [...] (06/05/2023): Last Assessment & Plan: -Presented to [facility] 09/04/2018 as a transfer from [place] for second opinion regarding left lower extremity [...] in pain -Reports pain is uncontrolled with TELEPHONE SOLICITOR Dilaudid pump, and pain does not decrease [...] questions Last Assessment & Plan: -Presented to [facility] 09/04/2018 as a transfer from [place] for second opinion regarding left lower extremity [...] in pain -Reports pain is uncontrolled with TELEPHONE SOLICITOR Dilaudid pump, and pain does not decrease [...] Department Care Team Description 04/29/2025 Refill [facility] [address] [place] [address] Nikko Lovelace MD Benign essential hypertension 04/29/2025 Telephone [facility] [address] [place] [address] Sheree Murrell Medication Question (Has a terrible cold and runny nose wanted to know if you could zuly in a z-pack for him.) 04/21/2025 Telephone [facility] [address] [place] [address] Elaine Saab LPN 04/21/2025 Patient Outreach [facility] [address] [place] [address] Elaine Saab LPN 04/16/2025 Clinisync Result Encounter NOMS External Department Unsolicited Provider, Generic External Data 04/15/2025 8:00 AM EDT Ancillary Procedure [facility] [address] [place] [address] Osteomyelitis of right foot, unspecified type (HCC) 04/15/2025 Clinisync Result Encounter NOMS External Department Unsolicited Provider, Generic External Data 04/15/2025 Patient Outreach [facility] [address] [place] [address] Elaine Saab LPN 04/15/2025 Results Follow-Up [facility] [address] [place] [address] Nikko Lovelace MD MR foot right wo IV contrast 04/15/2025 Travel 04/14/2025 1:30 PM EDT Office Visit [facility] [address] [place] [address] Nikko Lovelace MD PVD (peripheral vascular disease) with claudication (Primary Dx); Ischemic toe ulcer, right, with 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); Osteomyelitis of right foot, unspecified type (HCC) 04/14/2025 Travel 04/14/2025 Patient Outreach [facility] [address] [place] [address] Elaine Saab LPN 04/10/2025 Abstract [facility] [address] [place] [address] Emmanuel Gonzalez DPM 04/10/2025 Telephone [facility] [address] [place] [address] Zoë King PA posible med interaction 04/10/2025 Abstract [facility] [address] [place] [address] Nikko Lovelace MD 04/09/2025 Abstract [facility] [address] [place] [address] Nikko Lovelace MD 04/09/2025 Telephone [facility] [address] [place] [address] Zoë King PA 04/09/2025 Refill [facility] [address] [place] [address] Zoë King PA Paroxysmal atrial fibrillation (HCC) 04/08/2025 11:30 AM EDT Office Visit [facility] [address] [place] [address] Zoë King PA PVD (peripheral vascular disease) with claudication (Primary Dx); Acquired absence of left foot (HCC); Ischemic toe ulcer, right, with 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) 04/08/2025 External Result Encounter NOMS External Department Unsolicited Zoë King PA 04/08/2025 Abstract [facility] [address] [place] [address] Nikko Lovelace MD 04/08/2025 Bamboo flowsheet [facility] [address] [place] [address] Zoë King PA 04/08/2025 Travel 04/07/2025 Patient Outreach [facility] [address] [place] [address] Elaine Saab LPN 04/03/2025 Refill [facility] [address] [place] [address] Nikko Lovelace MD PVD (peripheral vascular disease) with claudication 03/31/2025 1:45 PM EDT Office Visit [facility] [address] [place] [address] Nikko Lovelace MD PVD (peripheral vascular disease) with claudication; History of prostate cancer; Urinary hesitancy 03/31/2025 Travel 03/31/2025 Patient Outreach [facility] [address] [place] [address] Elaine Saab LPN 03/24/2025 Telephone [facility] [address] [place] [address] Elaine Saab LPN 03/24/2025 Patient Outreach [facility] [place] [place] [address] Elaine Saab LPN 03/24/2025 Abstract [facility] [address] [facility] [address] [place] [address] Nikko Lovelace MD 03/20/2025 Abstract [facility] [address] [place] [address] Nikko Lovelace MD 03/17/2025 Abstract [facility] [address] [place] [address] Nikko Lovelace MD 03/12/2025 Abstract [facility] [address] [facility] [address] [place] [address] Nikko Lovelace MD 03/11/2025 Abstract [facility] [address] [place] [address] Nikko Lovelace MD 03/06/2025 Refill [facility] [address] [facility] [address] [place] [address] Mary Wilson, PIOTR History of prostate cancer; Urinary hesitancy 02/13/2025 [facility] [address] [facility] [address] [place] [address] Nikko Lovelace MD Primary insomnia; Other chronic [...] Recorded Patient Health Questionnaire-2 Score 0 04/14/2025 [facility] [place] [facility] - Occupational Stress [...] any time in the past 12 m [facility], were you homeless or living in [...] EDT Narrative 04/16/2025 12:52 PM EDT The [address] [address] XRay Report Signed Patient: TRISTIN GRAY MR#: [id number] : 1940 Acct:[id number] Age/Sex: 85 / M ADM Date: 04/15/25 Loc: RAD Attending Dr: Savanna Feliz D.P.M. Ordering Physician: Savanna Feliz D.P.M. Date of Service: 04/15/25 Procedure(s): XR foot RT min 3V Accession Number(s): [id number] cc: NIKKO LOVELACE ; Savanna Feliz D.P.M. The [place] [address] Patient Name: TRISTIN GRAY MRN: [id number] date: 1940 Sex: M Assigned Patient Location: [facility] Current Patient Location: Accession/Order Number: [id number] Exam Date: 04/16/2025 12:46 Report Date: 04/16/2025 [...] Rodriguez M.D. 04/16/2025 12:49 PM Dictation Location: [place] [address] Electronically authenticated by: [id number] Y Date: 04/16/2025 12:49 Dictated By: Cristian Rodrigeuz D.O. Signed By: 04/16/25 1252 DD/ 1249 TD/TT: Fitness Professional: Procedure Note Radiology, Radiologist, - 04/16/2025 [place] [address] XRay Report Signed Patient: TRISTIN GRAYMR#: [id number] : 1940cct:[id number] Age/Sex: 85 / MADM Date: 04/15/25 Loc: RAD Attending Dr: Savanna Feliz D.P.M. Ordering Physician: Savanna Feliz D.P.M. Date of Service: 04/15/25 Procedure(s): XR foot RT min 3V Accession Number(s): [id number] cc: NIKKO LOVELACE ; Savanna Feliz D.P.M. [place] [address] Patient Name: TRISTIN GRAY MRN: [facility]:[id number] date: 1940 Sex: M Assigned Patient Location: [facility] Current Patient Location: Accession/Order Number: [id number] Exam Date: 04/16/2025 12:46 Report Date: 04/16/2025 [...] Rodriguez M.D. 04/16/2025 12:49 PM Dictation Location: [place] [address] Electronically authenticated by: [id number] Y Date: 2:49 Dictated By: Cristian Rodriguez D.O. Signed By:04/16/25 1252 DD/ 1249 TD/TT: Fitness Professional: us Generic External Data Provider [facility] Final Result * (ABNORMAL) ALL SED RATE (04/15/2025 1:47 PM EDT) TBH SED RATE 53(H) <=20 mm/hr TB[facility] 04/15/2025 1:47 PM EDT 04/15/2025 1:48 PM EDT Narrative [facility] - 04/15/2025 2:12 PM EDT us Generic External Data Provider [facility] F inal Result [facility] * (ABNORMAL) ALL CBC WITH AUTO DIFF [...] [facility]IN[facility] F inal Result Performing Organization Address [facility]/ZIP Co de Phone Number [facility] TB * (ABNORMAL) ALL C REACTIVE PROTEIN (04/15/2025 1:47 PM EDT) Pathologist [facility] C REACTIVE PROTEIN 0.64(H) <=0.50 mg/dL TBH 04/15/2025 1:47 PM EDT 04/15/2025 1:48 PM EDT Narrative [facility] - 04/15/2025 2:20 PM EDT Generic External Data Provider [facility] F inal Result Performing Organization Address [facility] de Phone Number [facility] TB * (ABNORMAL) [...] 0.70 - 1.30 mg/dL TBH TBH EGFR-AF MALTESE 55(L) >=60 mL/min/1.7 3m 2 TBH TBH EGFR-NON AF [place]ESE 45(L) >=60 mL/min/1.7 3m 2 TBH BUN [...] IMG MRI PROCEDURES Final Result * (ABNORMAL) [facility] (04/08/2025 12:00 AM EDT) MECA 25.731(A) 23.000 - 31.199 ppm 04/09/2025 1:18 PM EDT [facility] MECA Detected(A) 23.000 - 31.199 ppm 04/09/2025 1:18 PM EDT [facility] TET B, TET M 23.751(A) 23.000 - 27.778 ppm 04/09/2025 1:18 PM EDT [facility] TET B, TET M Detected(A) 23.000 - 27.778 ppm 04/09/2025 1:18 PM EDT [facility] ACINETOBACTER BAUMANNII (ACUTE WOUND) 0 19.961 - 24.689 ppm 04/09/2025 1:19 PM EDT [facility] ACINETOBACTER BAUMANNII (ACUTE WOUND) Not Detected 19.961 - 24.689 ppm 04/09/2025 1:19 PM EDT [facility] BACTEROIDES FRAGILIS, VULGATUS (ACUTE WOUND) 23.270(A) 19.961 - 24.689 ppm 04/09/2025 1:18 PM EDT [facility] BACTEROIDES FRAGILIS, VULGATUS (ACUTE WOUND) Detected(A) 19.961 - 24.689 ppm 04/09/2025 1:18 PM EDT [facility] CITROBACTER FREUNDII (ACUTE WOUND) 0 19.961 - 24.689 ppm 04/09/2025 1:19 PM EDT [facility] [place] CITROBACTER FREUNDII (ACUTE WOUND) Not Detected 19.961 - 24.689 ppm 04/09/2025 1:19 PM EDT [facility] CLOSTRIDIUM PERFRINGENS, NOVYI, SEPTICUM (ACUTE WOUND) 0 19.961 - 24.689 ppm 04/09/2025 1:19 PM EDT [facility] CLOSTRIDIUM PERFRINGENS, NOVYI, SEPTICUM (ACUTE WOUND) Not Detected 19.961 - 24.689 ppm 04/09/2025 1:19 PM EDT [facility] ENTEROBACTER CLOACAE COMPLEX, KLEBSIELLA (ENTEROBACTER) AEROGENES ((A) 0 19.961 - 24.689 ppm 04/09/2025 1:19 PM EDT [facility] ENTEROBACTER CLOACAE COMPLEX, KLEBSIELLA (ENTEROBACTER) AEROGENES ((A) Not Detected 19.961 - 24.689 ppm 04/09/2025 1:19 PM EDT [facility] ENTEROCOCCUS FAECALIS, FAECIUM 0 19.961 - 24.689 ppm 04/09/2025 1:19 PM EDT [facility] ENTEROCOCCUS FAECALIS, FAECIUM Not Detected 19.961 - 24.689 ppm 04/09/2025 1:19 PM EDT [facility] ESCHERICHIA COLI (ACUTE WOUND) 0 19.961 - 24.689 ppm 04/09/2025 1:19 PM EDT [facility] ESCHERICHIA COLI (ACUTE WOUND) Not Detected 19.961 - 24.689 ppm 04/09/2025 1:19 PM EDT [facility] KLEBSIELLA PNEUMONIAE, OXYTOCA (ACUTE WOUND) 0 19.961 - 24.689 ppm 04/09/2025 1:19 PM EDT [facility] KLEBSIELLA PNEUMONIAE, OXYTOCA (ACUTE WOUND) Not Detected 19.961 - 24.689 ppm 04/09/2025 1:19 PM EDT [facility] PROTEUS MIRABILIS, VULGARIS (ACUTE WOUND) 22.966(A) 19.961 - 24.689 ppm 04/09/2025 1:18 PM EDT [facility] PROTEUS MIRABILIS, VULGARIS (ACUTE WOUND) Detected(A) 19.961 - 24.689 ppm 04/09/2025 1:18 PM EDT [facility] PSEUDOMONAS AERUGINOSA (ACUTE WOUND) 0 19.961 - 24.689 ppm 04/09/2025 1:19 PM EDT [facility] PSEUDOMONAS AERUGINOSA (ACUTE WOUND) Not Detected 19.961 - 24.689 ppm 04/09/2025 1:19 PM EDT [facility] SERRATIA MARCESCENS (ACUTE WOUND) 0 19.961 - 24.689 ppm 04/09/2025 1:19 PM EDT [facility] SERRATIA MARCESCENS (ACUTE WOUND) Not Detected 19.961 - 24.689 ppm 04/09/2025 1:19 PM EDT [facility] STAPHYLOCOCCUS AUREUS (ACUTE WOUND) 24.790(A) 19.961 - 24.689 ppm 04/09/2025 1:18 PM EDT [facility] STAPHYLOCOCCUS AUREUS (ACUTE WOUND) Detected(A) 19.961 - 24.689 ppm 04/09/2025 1:18 PM EDT [facility] STREPTOCOCCUS AGALACTIAE (GROUP B STREP) (ACUTE WOUND) 0 19.961 - 24.689 ppm 04/09/2025 1:19 PM EDT [facility] STREPTOCOCCUS AGALACTIAE (GROUP B STREP) (ACUTE WOUND) Not Detected 19.961 - 24.689 ppm 04/09/2025 1:19 PM EDT [facility] STREPTOCOCCUS PYOGENES (GROUP A STREP) (ACUTE WOUND) 0 19.961 - 24.689 ppm 04/09/2025 1:19 PM EDT [facility] STREPTOCOCCUS PYOGENES (GROUP A STREP) (ACUTE WOUND) Not Detected 19.961 - 24.689 ppm 04/09/2025 1:19 PM EDT [facility] VIBRIO CHOLERAE, PARAHAEMOLYTICUS, VULNIFICUS (ACUTE WOUND) 0 23.000 - 31.296 ppm 04/09/2025 1:19 PM EDT [facility] VIBRIO CHOLERAE, PARAHAEMOLYTICUS, VULNIFICUS (ACUTE WOUND) Not Detected 23.000 - 31.296 ppm 04/09/2025 1:19 PM EDT [facility] 04/08/2025 04/09/2025 4:1 0 AM EDT us Zoë BROWER LAB BLOOD ORDERABLES Edited Re sult - Final [facility] [address] [place] [address] * HERPES SIMPLEX VIRUS 1 (04/08/2025 12:00 AM EDT) [facility] HERPES SIMPLEX VIRUS 1 0 23.000 - 32.355 ppm 04/09/2025 11:32 AM EDT [facility] HERPES SIMPLEX VIRUS 1 Not Detected 23.000 - 32.355 ppm 04/09/2025 11:32 AM EDT [facility] HERPES SIMPLEX VIRUS 2 0 23.000 - 31.433 ppm 04/09/2025 11:32 AM EDT [facility] HERPES SIMPLEX VIRUS 2 Not Detected 23.000 - 31.433 ppm 04/09/2025 11:32 AM EDT [facility] HUMAN MONKEYPOX VIRUS 0 23.000 - 32.544 ppm 04/09/2025 11:37 AM EDT [facility] HUMAN MONKEYPOX VIRUS Not Detected 23.000 - 32.544 ppm 04/09/2025 11:37 AM EDT [facility] VARICELLA ZOSTER VIRUS (HUMAN HERPESVIRUS 3) 0 23.000 - 31.749 ppm 04/09/2025 11:32 AM EDT [facility] VARICELLA ZOSTER VIRUS (HUMAN HERPESVIRUS 3) Not Detected 23.000 - 31.749 ppm 04/09/2025 11:32 AM EDT [facility] 04/08/2025 04/09/2025 4:1 0 AM EDT us Zoë BROWER LAB BLOOD ORDERABLES Final Res ult [facility] [address] [place] [address] from Last 3 Months Insurance [employer] MEDICARE ADVANTAGE Care Teams Manager Spring Relationship Specialty Start Date End Date Nikko Lovelace MD [address] [facility] [address] [place] [address] PCP - [employer] 08/28/17 Nikko Lovelace MD [address] [facility] [address] [place] [address] PCP - General Family Medicine 03/09/23 Elaine Saab LPN [address] [facility] [address] [place] [address] 11/15/24
--- OUTSIDE RECORDS SUMMARY | 2025-04-30 11:34 | XMS_ITS | Encounter Summary ---
Author Organization [facility] Address [address] [place] [address] Care Team Providers Care Filing Machine Operator Name Role Phone Nikko Bird MD Primary Care Provider [phone] System, Provider Not In Unavailable Unavaila ble Encounter Details Date Type Department Care Team (Latest Contact Info) Description 04/23/2025 Travel Social History Tobacco Use Types Packs/Day Years Used Date Smoking Tobacco: Never Smokeless Tobacco: Never Alcohol Use Standard Drinks/Week Comments Not Currently 0 (1 standard drink = 0.6 oz pur e alcohol) [facility] Utilities Answer Date Recorded In the [...] living in a half-way (including now)? No 03/14/2025 Sex and Gender [...] documented as of this encounter Care Teams Filing Machine Operator Relationship Specialty Start Date End Date Nikko Bird MD [address] [place] [address] PCP - General Family Medicine 09/04/18 System, Provider Not In Hotel Concierge 11/09/22 documented as of this encounter
--- OUTSIDE RECORDS SUMMARY | 2025-04-30 11:34 | XMS_ITS | Encounter Summary ---
Author Organization [facility] Address [address] [place] [address] Care Team Providers Care Woolen Tester Name Role Phone Nikko Bird MD Unavailable Nikko Bird MD Primary Care Provider [phone] Elaine Saab LPN Unavailable Reason for Visit * Reason Onset Date Comments Medication Question 04/29/2025 Has a terrib le cold and runny nose wanted to know if you could zuly in a z-pack for him. Encounter Details Date Type Department Care Team (Late st Contact Info) Description 04/29/2025 Telephone [facility] [address] [facility] [address] [place] [address] Sheree Murrell Medication Question (Has [...] Recorded Patient Health Questionnaire-2 Score 0 04/14/2025 [facility] - Occupational Stress Questionnaire Answer Date [...] No 06/21/2024 Housing Stability Vital Sign Answer Micheal e Recorded In the last 12 months, [...] documented as of this encounter Care Teams Woolen Tester Relationship Specialty Start Date End Date Nikko Bird MD [address] [facility] [address] [place] [address] PCP - [employer] 08/28/17 Nikko Bird MD [address] [facility] [address] [place] [address] PCP - General Family Medicine 03/09/23 Elaine Saab LPN [address] [facility] [address] [place] [address] 11/15/24 documented as of this encounter
--- OUTSIDE RECORDS SUMMARY | 2025-04-30 11:34 | XMS_ITS | Encounter Summary ---
Author Organization [facility] Address [address] [place] [address] Care Team Providers Care Revenue Cycle Specialist Name Role Phone Nikko Bird MD Unavailable Nikko Bird MD Primary Care Provider [phone] Elaine Saab LPN Unavailable Encounter Details Date Type Department Care Team (Late st Contact Info) Description 03/12/2025 Abstract [facility] [place] [facility] [address] [facility] 110 [place] [address] Nikko Bird MD [address] [facility] 110 [place] [address] Social History Tobacco Use Types Packs/Day Years [...] Recorded Patient Health Questionnaire-2 Score 0 01/09/2025 [facility] Occupat ional Health [...] any time in the past 12 m [facility], were you homeless or living in [...] documented as of this encounter Care Teams Revenue Cycle Specialist Relationship Specialty Start Date End Date Nikko Bird MD [address] [address] PCP - [employer] 08/28/17 Nikko Bird MD [address] [facility] 110 [place] [address] PCP - General Family Medicine 03/09/23 Elaine Saab LPN [address] [address] 11/15/24 documented as of this encounter
--- OUTSIDE RECORDS SUMMARY | 2025-04-30 11:34 | XMS_ITS | Encounter Summary ---
Author Organization [facility] Address [address] [place] [address] Care Team Providers Care Medication Coordinator Name Role Phone Nikko Bird MD Unavailable Nikko Bird MD Primary Care Provider [phone] Elaine Saab LPN Unavailable Encounter Details Date Type Department Care Team (Late st Contact Info) Description 03/17/2025 Abstract [facility] [place] [facility] [address] [facility] 110 [place] [address] Nikko Bird MD [address] [facility] 110 [place] [address] Social History Tobacco Use Types Packs/Day Years [...] documented as of this encounter Care Teams Medication Coordinator Relationship Specialty Start Date End Date Nikko Bird MD [address] [address] PCP - [employer] 08/28/17 Nikko Bird MD [address] [facility] [address] [place] [address] PCP - General Family Medicine 03/09/23 Elaine Saab LPN [address] [address] 11/15/24 documented as of this encounter
--- OUTSIDE RECORDS SUMMARY | 2025-04-30 11:34 | XMS_ITS | Encounter Summary ---
Author Organization [facility] Address [address] [place] [address] Care Team Providers Care Assisted Living Housekeeper Name Role Phone Nikko Bird MD Unavailable Nikko Bird MD Primary Care Provider [phone] Elaine Saab LPN Unavailable Encounter Details Date Type Department Care Team (Late st Contact Info) Description 04/15/2025 Results Follow-Up [facility] [address] [facility] 110 [place] [address] Nikko Bird MD 112 [facility] 110 [place] [address] MR galindo right wo IV contrast Social [...] 0 04/14/2025 [facility] - Occupational Stress Questionnaire Answer Date [...] any time in the past 12 m [facility], were you homeless or living in a [...] with Dr. Feliz. Is uspecthe will need care home antibiotic. Dr. Feliz will probably do a debridement or partial amputtion. He may benefit from being admitted to a SNF for antibiotics. I go to [facility] and [facility] if that is the route that Dr. [...] documented as of this encounter Care Teams Assisted Living Housekeeper Relationship Specialty Start Date End Date Nikko Bird MD [address] [email or web address] [address] [place] [address] PCP - [employer] 08/28/17 Nikko Bird MD [address] [email or web address] 110 [place] [address] PCP - General Family Medicine 03/09/23 Elaine Saab LPN 112 [facility] 110 [place] [address] 11/15/24 documented as of this encounter
--- OUTSIDE RECORDS SUMMARY | 2025-04-30 11:34 | XMS_ITS | Encounter Summary ---
Author Organization [facility] Address [address] [place] [address] Care Team Providers Care Student Assistant Name Role Phone Nikko Bird MD Unavailable Nikko Bird MD Primary Care Provider [phone] Elaine Saab LPN Unavailable Encounter Details Date Type Department Care Team ([facility] Contact Info) Description 04/10/2025 [facility] [address] [facility] [address] [place] [address] Emmanuel Gonzalez DPM [address] [facility] [address] [place] [address] Social History Tobacco Use Types Packs/Day Years [...] 04/14/2025 [facility] - [...] documented as of this encounter Care Teams Student Assistant Relationship Specialty Start Date End Date Nikko Bird MD [address] [address] PCP - [employer] 08/28/17 Nikko Bird MD [address] [facility] [address] [place] [address] PCP - General Family Medicine 03/09/23 Elaine Saab LPN [address] [address] 11/15/24 documented as of this encounter
--- OUTSIDE RECORDS SUMMARY | 2025-04-30 11:35 | XMS_ITS | Encounter Summary ---
Author Organization [facility] Address [address] [place] [address] Care Team Providers Care Airplane Navigator Name Role Phone Nikko Bird MD Unavailable Nikko Bird MD Primary Care Provider [phone] Elaine Saab LPN Unavailable Encounter Details Date Type Department Care Team (Late st Contact Info) Description 04/10/2025 Abstract [facility] [address] [facility] [address] [place] [id number] Nikko Bird MD [address] [facility] [address] [place] [address] Social History Tobacco Use Types Packs/Day Years [...] Recorded Patient Health Questionnaire-2 Score 0 04/14/2025 [facility] - [...] time in the past 12 m [facility], were you homeless or living in a [...] documented as of this encounter Care Teams Airplane Navigator Relationship Specialty Start Date End Date Nikko Bird MD [address] [address] PCP - [employer] 08/28/17 Nikko Bird MD [address] [facility] [address] [place] [address] PCP - General Family Medicine 03/09/23 Elaine Saab LPN [address] [address] 11/15/24 documented as of this encounter
--- OUTSIDE RECORDS SUMMARY | 2025-04-30 11:35 | XMS_ITS | Encounter Summary ---
Author Organization [facility] Address [address] [place] [address] Care Team Providers Care Penetration Tester Name Role Phone Nikko Bird MD Unavailable Nikko Bird MD Primary Care Provider [phone] Elaine Saab LPN Unavailable Encounter Details Date Type Department Care Team (Late st Contact Info) Description 04/09/2025 Abstract [facility] [address] [facility] [address] [place] [id number] Nikko Bird MD [address] [facility] [address] [place] [address] Social History Tobacco Use Types Packs/Day Years [...] Recorded Patient Health Questionnaire-2 Score 0 04/08/2025 [facility] - Occupational [...] documented as of this encounter Care Teams Penetration Tester Relationship Specialty Start Date End Date Nikko Bird MD [address] [address] PCP - [employer] 08/28/17 Nikko Bird MD [address] [facility] [address] [place] [address] PCP - General Family Medicine 03/09/23 Elaine Saab LPN [address] [address] 11/15/24 documented as of this encounter
--- OUTSIDE RECORDS SUMMARY | 2025-04-30 11:35 | XMS_ITS | Encounter Summary ---
Author Organization [facility] Address [address] [place] [address] Phone Care Team Providers Care Career Services Coordinator Name Role Phone Unavailable Primary Care Provider Unavailabl e Encounter Details Date Type Department Care Team (Late st Contact Info) Description 10/17/2023 Scanned Document [facility] [address] [place] [id number] Scanning, Generic Provider Social History Tobacco Use [...]
--- OUTSIDE RECORDS SUMMARY | 2025-04-30 11:35 | XMS_ITS | Clinical Summary ---
Author Organization [facility] Address [address] [place] [address] Care Team Providers Care Sorting Grapple Operator Name Role Phone Nikko Bird MD Primary Care Provider [phone] System, Provider Not In Unavailable Unavaila ble [...] tablet 5 Active naloxone (NARCAN) 4 mg/actuation [place] Administer 1 spray into one nostril for [...] Plan (09/07/2018 2:48 PM EST): -Presented to [facility] 09/04/2018 as a transfer from [place] for second opinion regarding left lower extremity [...] in pain -Reports pain is uncontrolled with KNITTING DEMONSTRATOR Dilaudid pump, and pain does not decrease [...] 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 Pt was placed on Xarelto and [...] Team Description 04/23/2025 3:15 PM EDT Follow-Up [facility] [address] [place] [phone] Gracy Millan MD Critical lower limb ischemia (HCC) (Primary Dx) 04/23/2025 12:25 PM EDT - 04/23/2025 11:59 PM EDT Hospital Encounter [facility] Cardiac Non-Invasive Lab [address] [place] [address] Gracy Millan MD Discharge Disposition: Home 04/23/2025 12:25 PM EDT - 04/23/2025 11:59 PM EDT Hospital Encounter [facility] Cardiac Non-Invasive Lab [address] [place] [address] Gracy Millan MD Discharge Disposition: Home 04/23/2025 Travel 04/02/2025 12:00 PM EDT Follow-Up [facility] [address] [place] [phone] Gracy Millan MD Critical lower limb ischemia (HCC) (Primary Dx) 04/02/2025 Travel 03/18/2025 Documentation [facility] [address] [place] [address] Brenna Galloway RN 03/17/2025 12:20 PM EDT Anesthesia Event [facility] [address] [place] [address] Skyler Gil MD Reardon, Michael E., MD 03/17/2025 12:10 PM EDT - 03/17/2025 5:10 PM EDT Surgery [facility] [address] [place] [address] Gracy Millan MD RIGHT FEMORAL TO TIBIAL BYPASS WITH ARM VEIN. Angiogram 03/14/2025 11:04 AM EDT - 03/21/2025 6:29 PM EDT Hospital Encounter [facility] [address] [place], [place] [phone] Elaine Macdonald MD Phys[facility], [facility] Dooling, Patrick Cassidy, MD Discharge Disposition: Home 03/14/2025 10:00 AM EDT Office Visit [facility] [address] [place] [address] [address] [place] [phone] Gracy Millan MD Hoover, Ashly Swan, KAMARI Acute pain of right lower extremity (Primary Dx) 03/14/2025 7:30 AM EDT - 03/14/2025 11:59 PM EDT Hospital Encounter [facility] [address] [place] [address] Gracy Millan MD Discharge Disposition: Home 03/14/2025 7:26 AM EDT - 03/14/2025 11:59 PM EDT Hospital Encounter [facility] [address] [place] [address] Gracy Millan MD Discharge Disposition: Home 03/14/2025 Documentation [facility] [address] [place] [phone] Ludivina Garcia RN 03/14/2025 Documentation [facility] [address] [place] [phone] Ludivina Garcia RN 03/14/2025 Travel 03/13/2025 Documentation [facility] Cardiac Non-Invasive Lab [facility] [phone] Ludivina Garcia, RN from Last 3 Months Immunizations Immunization Administration Dates Next Due INFLUENZA IIV3 65+YO FLUAD 94173 06/18/2019 Influenza, Injectable, Quadrivalent 05/22/2017 Influenza, high [...] drink = 0.6 oz pur e alcohol) [facility] Utilities Answer Date Recorded In the past 12 months has [facility] AW[employer], [employer], oil, or water [employer] threatened to shut off services in your [...] the past [address] [facility], were you homeless or living in a penitentiary (including now)? No 03/14/2025 Sex and Gender [...] 03/15/2026 03/15/2025 Medical Devices Implanted Type Area Staffing Clerk Device Identifier Shelf Expiration Date Model / Serial / Lot Hemostat 2 X 4in Surgicel Fibrillar - [id number] Implanted:Qty: 1 on 09/07/2018 by Gracy Millan MD at [facility] Left: Leg [facility] 02/24/20211961 / / [id number] Hemostat 2 X 4in Surgicel Fibrillar - Sna Implanted:Qty: 1 on 03/17/2025 by Gracy Millan MD at [facility] [employer] 05/27/20271961 / NA / [id number] Sealant 10ml Hemostatic Matrix Fast Prep Floseal W/Recothrom - [id number] Implanted:Qty: 1 on 03/17/2025 by Gracy Millan MD at 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 Tire Setter: Ying Fiore [facility], RVT Staff Ordering Physician: Gracy Millan MD, [...] Segmental BP RIGHT Brachial A mmH RIGHT NET MANAGER mmH RIGHT NET MANAGER Index: 0.96 RIGHT DPA mmH RIGHT DPA Index: 0.92 RIGHT YAMILE Index: 0.96 LEFT Brachial A mmH LEFT NET MANAGER Index: 0.48 LEFT NET MANAGER mmH LEFT DPA Index: 0.61 LEFT DPA mmH LEFT YAMILE Index: 0.61 Doppler RIGHT NET MANAGER Waveform: Multiphasic RIGHT DPA Waveform: Multiphasic LEFT NET MANAGER Waveform: Monophasic LEFT DPA Waveform: Monophasic [...] vascular disease, unspecified I70.229 - Atherosclerosis of [place] arteries of extremities withrest pain, unspecified extremity Procedure Description 07919 Limited bilateral noninvasive physiologic studies of upper orlower extremity arteries with bidirectional Doppler/PVR waveform analysis at1-2 levels. Tire Setter: Ying Fiore RD, RVT Staff Ordering Physician: [...] Segmental BP RIGHT Brachial A mmH RIGHT NET MANAGER mmH RIGHT NET MANAGER Index: 0.96 RIGHT DPA mmH RIGHT DPA Index: 0.92 RIGHT YAMILE Index: 0.96 LEFT Brachial A mmH LEFT NET MANAGER Index: 0.48 LEFT NET MANAGER mmH LEFT DPA Index: 0.61 LEFT DPA mmH LEFT YAMILE Index: 0.61 Doppler RIGHT NET MANAGER Waveform: Multiphasic RIGHT DPA Waveform: Multiphasic LEFT NET MANAGER Waveform: Monophasic LEFT DPA Waveform: Monophasic , PVR RIGHT Ankle Grade: Abnormal RIGHT Transmetarsal Grade: Abnormal LEFT Ankle Grade: Abnormal Report Signatures Finalized by Nemo Conner MD, PHD, RVT on 04/23/2025 02:41 PM us Gracy Millan MD CV VASCULAR ORDERABLES Fin al Result MARK Decision Rocket LILIANA * Duplex Bypass Graft LE Bilateral (04/23/2025 2:18 PM EDT) 04/23/2025 12:5 3 PM EDT Narrative MARK RAINEY CV - 04/23/2025 2:41 PM EDT Patient Info Name: Tristin Gray Age: 85 years : 1940 Gender: Male Exam Date: 04/23/2025 12:53 PM Patient Status: OP SERIES Site Location: [facility] Indications I73.9 - Peripheral vascular disease, unspecified I70.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 Tire Setter: Jigna Vera RDMS, RVT Staff Ordering Physician: [...] Artery Segment: Gabriela LEFT Inflow Artery Segment: WALLPAPERER HELPER LEFT Inflow Artery PSV: 126 LEFT Inflow [...] vascular disease, unspecified I70.229 - Atherosclerosis of [place] arteries of extremities withrest pain, unspecified extremity Procedure Description 03061 Duplex scan of lower extremity arteries or arterial bypassgrafts using B-mode, color and spectral Doppler; unilateral or limited study. Tire Setter: Jigna Vera RDMS, RVT Staff Ordering Physician: [...] Artery Segment: Gabriela LEFT Inflow Artery Segment: WALLPAPERER HELPER LEFT Inflow Artery PSV: 126 LEFT Inflow [...] - 11.00 K/mcL 03/21/2025 6:41 AM T [facility] RBC 3.16(L) 4.50 - 5.90 M/mcL 03/21/2025 6:41 AM [facility] Hemoglobin 10.5(L) 13.5 - 17.5 g/dL 03/21/2025 6:41 AM [facility] Hematocrit 30.0(L) 41.0 - 53.0 % 03/21/2025 6:41 AM [facility] MCV 94.9 80.0 - 100.0 fL 03/21/2025 6:41 AM [facility] MCH 33.2 26.0 - 34.0 pg 03/21/2025 6:41 AM [facility] MCHC 35.0 31.0 - 37.0 g/dL 03/21/2025 6:41 AM [facility] Platelets 213 150 - 400 K/mcL 03/21/2025 6:41 AM [facility] RDW - CV 13.7 11.6 - 14.8 % 03/21/2025 6:41 AM [facility] MPV 9.7 9.4 - 12.4 fL 03/21/2025 6:41 AM [facility] Nucleated RBC 0.0 % 03/21/2025 6:41 AM [facility] Nucleated RBC Abs 0.00 0.00 - 0.00 K/mcL 03/21/2025 6:41 AM [facility] Blood BLOOD SPECIMEN / Unknown Venipuncture / Unknown 03/21/2025 6:06 AM EDT 03/21/2025 6:20 AM EDT Skyler Otto MD LAB BLOOD ORDERABLES Final Result [facility] [address] [place] [address] * Magnesium (03/21/2025 6:06 AM EDT) Only the most recent of7 resultswithin the time period is included. Magnesium 2.1 1.6 - 2.4 mg/dL 03/21/2025 6:54 AM T [facility] Blood BLOOD SPECIMEN / Unknown Venipuncture / Unknown 03/21/2025 6:06 AM EDT 03/21/2025 6:20 AM EDT Skyler Otto MD LAB BLOOD ORDERABLES Final Result Performing Organization Address [facility] Co de Phone Number [facility] [address] [place] [address] * (ABNORMAL) Basic Metabolic Panel (03/21/2025 6:06 AM EDT) Only the most recent of7 resultswithin the time period is included. Sodium 140 135 - 145 mmol/L 03/21/2025 6:54 AM [facility] Potassium 4.0 3.5 - 5.1 mmol/L 03/21/2025 6:54 AM [facility] Comment:Slightly Hemolyzed Chloride 108 98 - 108 mmol/L 03/21/2025 6:54 AM [facility] Bicarbonate 22 21 - 32 mmol/L 03/21/2025 6:54 AM [facility] Anion Gap 14 10 - 20 mmol/L 03/21/2025 6:54 AM [facility] Glucose 109(H) 65 - 99 mg/dL 03/21/2025 6:54 AM [facility] BUN 19 8 - 25 mg/dL 03/21/2025 6:54 AM [facility] Creatinine 0.98 0.80 - 1.30 mg/dL 03/21/2025 6:54 AM EDT [facility] eGFR 75 >=60 mL/min/1.7 3 m2 03/21/2025 6:54 AM EDT [facility] Comment:Estimated GFR was ca lculated using the 2020 CKD-EPI creatinine equation. BUN/Creatinine Ratio 19.4 10.0 - 20.0 03/21/2025 6:54 AM EDT [facility] Calcium 9.4 8.4 - 10.2 mg/dL 03/21/2025 6:54 AM EDT [facility] Blood BLOOD SPECIMEN / Unknown Venipuncture / Unknown 03/21/2025 6:06 AM EDT 03/21/2025 6:20 AM EDT Narrative [facility] - 03/21/2025 6:54 AM EDT [facility] has implemented the eGFR calculation approach that does not have a coefficient for race that conforms to the NKF-ASN Task Force Recommendations. us Skyler Otto MD LAB BLOOD ORDERABLES Final Result [facility] [address] [place] [address] * (ABNORMAL) Hemoglobin and Hematocrit (03/17/2025 11:09 PM EDT) Only the most recent of2 resultswithin the time period is included. Hemoglobin 11.2(L) 13.5 - 17.5 g/dL 03/17/2025 11:30 PM EDT [facility] Hematocrit 30.5(L) 41.0 - 53.0 % 03/17/2025 11:30 PM EDT [facility] Blood BLOOD SPECIMEN / Unknown Venipuncture / Unknown 03/17/2025 11:09 PM EDT 03/17/2025 11:26 PM EDT Ana Luisa Murray MD LAB BLOOD ORDERABLES Final Resul t [facility] [address] [place] [address] * XR OR Angio Lower Extremity Right (03/17/2025 4:13 PM EDT) Anatomical Region Laterality Modality Radio Fluoroscop y 03/18/2025 7:53 AM EDT Impressions 03/18/2025 10:04 AM EDT Fluoroscopy used for intraoperative angiogram. Refer to the operative report for details. [employer] Workstation ID: [id number] Narrative 03/18/2025 10:04 AM [...] angiogram. Refer to the operativereport for details. [employer] Workstation ID: [id number] us Gracy Millan MD [...] ultrasound guidance Number of attempts: 1 Result [facility] Serjio Olivarez MD SD ANESTHESIA Final Re sult * SD ARTL CATHJ/CANNULJ MNTR/TRANSFUSION SPX PRQ (03/17/2025 12:40 [...] Final orientation: right Final location: radial Monitoring: color television console monitor, pulse oximetry, heart rate and BP [...] procedure well with no immediate complications Result [facility] Serjio Olivarez MD SD ANESTHESIA Final Re sult * ETT Airway [...] none Lip/tooth/tongue trauma: no Serjio Olivarez MD SD ANESTHESIA Final Re sult * (ABNORMAL) POC Glucose (03/17/2025 11:01 AM EDT) Glucose 105(H) 65 - 99 mg/dL 03/17/2025 11:02 AM EDT [facility] Blood BLOOD SPECIMEN / Unknown 03/17/2025 11:01 AM EDT 03/17/2025 11:02 AM EDT [facility] POCT ORDERABLES - DEV ICE Final Result [facility] POCT [facility] [address] [place] [address] * (ABNORMAL) APTT Heparin Coverage (03/17/2025 3:53 AM EDT) Only the most recent of4 resultswithin the time period is included. APTT 92(H) 23 - 34 seconds 03/17/2025 5:14 AM EDT [facility] Blood BLOOD SPECIMEN / Unknown Venipuncture / Unknown 03/17/2025 3:53 AM EDT 03/17/2025 4:29 AM EDT Narrative [facility] - 03/17/2025 5:14 AM EDT Therapeutic range for APTT's is 68 - 104 seconds Gracy Millan MD LAB BLOOD ORDERABLES Final Result [facility] [address] [place] [address] * ECG 12 Lead (03/16/2025 11:44 AM EDT) Only the most recent of3 resultswithin the time period is included. Ventricular Rate 63 BPM MUSE Atrial Rate 63 BPM MUSE P-R Interval 208 ms MUSE QRS Duration 102 ms MUSE Q-T Interval 454 ms MUSE QTC Calculation (Bezet) 464 ms MUSE P [place] 86 degrees MUSE R [place] 45 degrees MUSE T [place] 44 degrees MUSE 03/16/2025 11:4 4 AM EDT 03/17/2025 7:58 AM EDT Narrative MUSE - 03/17/2025 7:58 AM EDT Sinus rhythm with Premature supraventricular complexes Otherwise normal ECG Confirmed by MARY CARLTON ([id number]) on 03/17/2025 7:58:31 AM us Ana Luisa Murray MD ECG ORDERABLES Final Result MUSE * (ABNORMAL) PT/INR (03/16/2025 9:07 AM EDT) Only the most recent of2 resultswithin the time period is included. Protime (PT) 14.7(H) 11.8 - 14.3 seconds 03/16/2025 10:22 AM EDT [facility] INR 1.1 0.8 - 1.1 03/16/2025 10:22 AM EDT [facility] Blood BLOOD SPECIMEN / Unknown Venipuncture / Unknown 03/16/2025 9:07 AM EDT 03/16/2025 9:48 AM EDT Narrative [facility] - 03/16/2025 10:22 AM EDT During the induction phase of oral anticoagulation, the INR may not reflect the anticoagulation status of the patient. Therapeutic ranges for INR's are: Most clinical situations: INR 2.0-3.0 Mechanical Prosthetic Valve: INR 2.5-3.5 Critical: INR >5.0 us Alexei Salomon MD LAB BLOOD ORDERABLES Final Res ult [facility] [address] [place] [address] * Type and Screen (03/16/2025 9:07 AM EDT) ABORh O Positive 03/16/2025 10:37 AM EDT [facility] Antibody Screen Negative 03/16/2025 10:37 AM EDT [facility] Specimen Expires 03/19/2025 23:59 EST 03/16/2025 10:37 AM EDT [facility] Blood BLOOD SPECIMEN / Unknown Venipuncture / Unknown 03/16/2025 9:07 AM EDT 03/16/2025 9:48 AM EDT us Alexei Salomon MD BLOOD BANK TEST ORDERABLES Fin al Result Performing Organization Address City/[facility]/ZIP Co de Phone Number [facility] [address] [place], [place] [phone] * APTT (03/15/2025 7:52 PM EDT) APTT 33 23 - 34 seconds 03/15/2025 8:14 PM EDT [facility] Blood BLOOD SPECIMEN / Unknown Venipuncture / Unknown 03/15/2025 7:52 PM EDT 03/15/2025 7:56 PM EDT Narrative [facility] - 03/15/2025 8:14 PM EDT Therapeutic range for APTT's is 68 - 104 seconds us Mary Madrigal MD LAB BLOOD ORDERABLE S Final Result Performing Organization Address City/[facility] Co de Phone Number [facility] [address] [place], [place] [phone] * Ultrasound Saphenous vein mapping (03/14/2025 9:56 PM EDT) 03/14/2025 9:26 PM EDT Narrative FUJI SYNAPSE CV - 03/16/2025 11:15 AM EDT Patient Info Name: Tristin Gray Age: 85 years : 1940 Gender: Male Exam Date: 03/14/2025 9:26 PM Patient Status: INPATIENT Site Location: [facility] Indications Z01.810 - Encounter for preprocedural cardiovascular examination Procedure Description 88097 Duplex examination using B-mode, color and spectral Doppler of extremity veins including responses to compression and other maneuvers; complete bilateral study. Tire Setter: Cristian Ellis RVT, [facility] Staff Ordering Physician: Alexei Salomon Conclusions [...] Encounter for preprocedural cardiovascular examination Procedure Description 16319 Duplex examination using B-mode, color and spectral Doppler of extremity veins including responses to compression and other maneuvers; complete bilateral study. Tire Setter: Cristian Ellis RVT, [facility] Staff Ordering Physician: Alexei Salomon Conclusions [...] MD CV VASCULAR ORDERABLES Final R esult [facility] CV * Upper extremity vein mapping (03/14/2025 9:55 PM EDT) 03/14/2025 9:20 PM EDT Narrative [facility]ancy[facility] Rocket CV - 03/16/2025 11:14 AM EDT Patient Info Name: Tristin Gray Age: 85 years : 1940 Gender: Male Exam Date: 03/14/2025 9:20 PM Patient Status: INPATIENT Site Location: [facility] Indications Z01.810 - Encounter for preprocedural cardiovascular examination Procedure Description 73174 Duplex examination using B-mode, color and spectral Doppler of extremity veins including responses to compression and other maneuvers; complete bilateral study. Tire Setter: Cristian Ellis RVT, [facility] Staff Ordering Physician: Alexei Salomon Conclusions [...] Encounter for preprocedural cardiovascular examination Procedure Description 56261 Duplex examination using B-mode, color and spectral Doppler of extremity veins including responses to compression and other maneuvers; complete bilateral study. Tire Setter: Cristian Ellis RVT, [facility] Staff Ordering Physician: Alexei Salomon Conclusions [...] ORDERABLES Final R esult Performing Organization Address City/State/[facility] Co de Phone Number FUJI SYNAPSE CV * [facility] (03/14/2025 11:28 AM EDT) Extra Tube Hold for add-ons. 03/14/2025 3:59 PM EDT [facility] Comment:Auto resulted. Blood BLOOD SPECIMEN / Unknown Venipuncture / Unknown 03/14/2025 11:28 AM EDT 03/14/2025 11:32 AM EDT us Elaine Macdonald MD LAB BLOOD ORDERABLES Fin al Result [facility] [address] [place] [phone] * [place]ao Top (03/14/2025 11:28 AM EDT) Extra Tube Hold for add-ons. 03/14/2025 1:58 PM EDT [facility] Comment:Auto resulted. Blood BLOOD SPECIMEN / Unknown Venipuncture / Unknown 03/14/2025 11:28 AM EDT 03/14/2025 11:32 AM EDT Elaine Macdonald MD LAB BLOOD ORDERABLES Fin al Result Performing Organization Address City/[facility]/ZIP Co de Phone Number [facility] [address] [place] [phone] * [place] (03/14/2025 11:28 AM EDT) Blood BLOOD SPECIMEN / Unknown Venipuncture / Unknown 03/14/2025 11:28 AM EDT 03/14/2025 11:32 AM EDT Ealine Macdonald MD LAB BLOOD ORDERABLES Fin al Result Performing Organization Address [facility]/ZIP Co de Phone Number [facility] [address] [place] [phone] * (ABNORMAL) Chem 7 (03/14/2025 11:28 AM EDT) Sodium 139 135 - 145 mmol/L 03/14/2025 12:09 PM EDT [facility] Potassium 3.8 3.5 - 5.1 mmol/L 03/14/2025 12:09 PM EDT [facility] Chloride 102 98 - 108 mmol/L 03/14/2025 12:09 PM EDT [facility] Bicarbonate 25 21 - 32 mmol/L 03/14/2025 12:09 PM EDT [facility] Anion Gap 16 10 - 20 mmol/L 03/14/2025 12:09 PM EDT [facility] Glucose 100(H) 65 - 99 mg/dL 03/14/2025 12:09 PM EDT [facility] BUN 20 8 - 25 mg/dL 03/14/2025 12:09 PM T [facility] Creatinine 1.12 0.80 - 1.30 mg/dL 03/14/2025 12:09 PM EDT [facility] eGFR 64 >=60 mL/min/1.7 3 m2 03/14/2025 12:09 PM [facility] Comment:Estimated GFR was ca lculated using the 2020 CKD-EPI creatinine equation. BUN/Creatinine Ratio 17.9 10.0 - 20.0 03/14/2025 12:09 PM T [facility] Blood BLOOD SPECIMEN / Unknown Venipuncture / Unknown 03/14/2025 11:28 AM EDT 03/14/2025 11:32 AM EDT [facility] - 03/14/2025 12:09 PM EDT [facility] has implemented the eGFR calculation approach that does not have a coefficient for race that conforms to the NKF-ASN Task Force Recommendations. Dashawn Stallings PA-C LAB BLOOD ORDERABLES F inal Result [facility] [address] [place] [address] * (ABNORMAL) CBC Auto Differential (03/14/2025 11:28 AM EDT) WBC 3.50(L) 4.50 - 11.00 K/mcL 03/14/2025 12:15 PM [facility] RBC 4.34(L) 4.50 - 5.90 M/mcL 03/14/2025 12:15 PM [facility] Hemoglobin 13.2(L) 13.5 - 17.5 g/dL 03/14/2025 12:15 PM T [facility] Hematocrit 39.3(L) 41.0 - 53.0 % 03/14/2025 12:15 PM [facility] MCV 90.6 80.0 - 100.0 fL 03/14/2025 12:15 PM EDT [facility] MCH 30.4 26.0 - 34.0 pg 03/14/2025 12:15 PM [facility] MCHC 33.6 31.0 - 37.0 g/dL 03/14/2025 12:15 PM [facility] Platelets 173 150 - 400 K/mcL 03/14/2025 12:15 PM [facility] RDW - CV 13.5 11.6 - 14.8 % 03/14/2025 12:15 PM [facility] MPV 9.3(L) 9.4 - 12.4 fL 03/14/2025 12:15 PM [facility] Neutrophils 54.0 % 03/14/2025 12:15 PM [facility] Comment:Peripheral smear rev iewed manually Lymphocytes 18.6 % 03/14/2025 12:15 PM [facility] Monocytes 23.1 % 03/14/2025 12:15 PM [facility] Eosinophils 3.4 % 03/14/2025 12:15 PM [facility] Basophils 0.6 % 03/14/2025 12:15 PM [facility] IG Percent 0.30 % 03/14/2025 12:15 PM [facility] Comment:The IG parameter is the percentage of metamyelocytes, myelocytes and promyelocytes. An immature granulocyte count (IG) of 1% or more suggests the possibility of infection, an IG count of 3% is very likely related to an infection. Neutrophils Abs 1.89 1.70 - 7.00 K/mcL 03/14/2025 12:15 PM [facility] Lymphocytes Abs 0.65(L) 0.90 - 4.00 K/mcL 03/14/2025 12:15 PM [facility] Monocytes Abs 0.81 0.30 - 0.90 K/mcL 03/14/2025 12:15 PM [facility] Eosinophils Abs 0.12 0.00 - 0.50 K/mcL 03/14/2025 12:15 PM [facility] Basophils Abs 0.02 0.00 - 0.30 K/mcL 03/14/2025 12:15 PM EDT [facility] IG Absolute 0.01 0.00 - 0.30 K/mcL 03/14/2025 12:15 PM EDT [facility] Nucleated RBC 0.0 % 03/14/2025 12:15 PM EDT [facility] Nucleated RBC Abs 0.00 0.00 - 0.00 K/mcL 03/14/2025 12:15 PM EDT [facility] Blood BLOOD SPECIMEN / Unknown Venipuncture / Unknown 03/14/2025 11:28 AM EDT 03/14/2025 11:32 AM EDT Dashawn Stallings PA-C LAB BLOOD ORDERABLES F inal Result [facility] [address] [place] [address] * Ultrasound duplex arterial leg right (03/14/2025 9:15 AM EDT) 03/14/2025 8:20 AM EDT Narrative FUJI SYNAPSE CV - 03/14/2025 11:57 AM EDT Patient Info Name: Tristin Gray Age: 85 years : 1940 Gender: Male Exam Date: 03/14/2025 8:20 AM Patient Status: OUTPATIENT Site Location: [facility] Indications I73.9 - Peripheral vascular disease, unspecified Procedure Description [id number] Duplex scan of lower extremity arteries or arterial bypass grafts using B-mode, color and spectral Doppler; unilateral or limited study. Tire Setter: Ernestina Campos RVT, RDMS Staff Ordering Physician: Gracy Millan MD, RPVI Conclusions * 50-99% stenosis in the right mid superficial femoral artery. * Unable to obtain right external iliac artery images due to bandaging from recent procedure. Risk Factors Patient with a history of hypertension, hyperlipidemia, CAD and PAD. Measurements RIGHT WALLPAPERER HELPER PSV (cm/s): 115 RIGHT WALLPAPERER HELPER EDV (cm/s): 7 RIGHT Prox PFA PSV [...] Distal LAUREL EDV (cm/s): 6 RIGHT Prox NET MANAGER PSV (cm/s): 81 RIGHT Prox NET MANAGER EDV (cm/s): 14 RIGHT Mid NET MANAGER PSV (cm/s): 38 RIGHT Mid NET MANAGER EDV (cm/s): 6 RIGHT Distal NET MANAGER PSV (cm/s): 57 RIGHT Distal NET MANAGER EDV (cm/s): 20 RIGHT Prox Gabriela [...] - Peripheral vascular disease, unspecified Procedure Description [id number] Duplex scan of lower extremity arteries or arterial bypassgrafts using B-mode, color and spectral Doppler; unilateral or limited study. Tire Setter: Ernestina Campos RVLatricia, [facility] Staff Ordering Physician: Gracy Millan MD, VI Conclusions * 50-99% stenosis in the right mid superficial femoral artery. * Unable to obtain right external iliac artery images due to bandagingfrom recent procedure. Risk Factors Patient with a history of hypertension, hyperlipidemia, CAD and PAD. Measurements RIGHT WALLPAPERER HELPER PSV (cm/s): 115 RIGHT WALLPAPERER HELPER EDV (cm/s): 7 RIGHT Prox PFA PSV [...] Distal LAUREL EDV (cm/s): 6 RIGHT Prox NET MANAGER PSV (cm/s): 81 RIGHT Prox NET MANAGER EDV (cm/s): 14 RIGHT Mid NET MANAGER PSV (cm/s): 38 RIGHT Mid NET MANAGER EDV (cm/s): 6 RIGHT Distal NET MANAGER PSV (cm/s): 57 RIGHT Distal NET MANAGER EDV (cm/s): 20 RIGHT Prox Gabriela [...] Resu lt from Last 3 Months Insurance [id number] (Home) [address] [place] [id number] [facility] ADVANTAGE CHOICE PPO Advance Directives For more information, please contact: [phone] Documents on File Type Date Recorded Patient 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
--- OUTSIDE RECORDS SUMMARY | 2025-04-30 11:35 | XMS_ITS | Clinical Summary ---
Author Organization [facility] Address [address] [place] [address] Phone Care Team Providers Care Cascade Operator Name Role Phone Unavailable Primary Care Provider [...]
--- OUTSIDE RECORDS SUMMARY | 2025-04-30 11:36 | XMS_ITS | Encounter Summary ---
Author Organization [facility] Address [address] [place] [address] Care Team Providers Care Construction Area Manager Name Role Phone Nikko Bird MD Unavailable Nikko Bird MD Primary Care Provider [phone], Mary WRIGHTN Unavailable [phone] Lorraine Morgan RN Unavailable [phone] Saab, Elaine MATRIX INSPECTOR Unavailable Encounter Details Date Type Department Care Team (Late st Contact Info) Description 07/10/2024 Abstract [facility] [place] [facility] 112 [facility] 110 [place] [address] Nikko Bird MD 112 [facility] 110 [place] [address] Social History Tobacco Use Types Packs/Day Years [...] Recorded Patient Health Questionnaire-2 Score 0 04/26/2024 [facility]at ional [...] any time in the past 12 m [facility], were you homeless or living in a long term (including now)? No 06/21/2024 Sex and Gender [...] documented as of this encounter Care Teams Construction Area Manager Relationship Specialty Start Date End Date Nikko Bird MD [address] [place] [address] [place] [address] PCP - [employer] 08/28/17 Nikko Bird MD [address] [place] [address] [place] [address] PCP - General Family Medicine 03/09/23MondayMary LPN [address] [place] [address] Licensed Practical Nurse Family Medicine 06/21/24 Lorraine Morgan, RN [address] [place] [address] Licensed Practical Nurse Family Medicine 10/04/2411/15 Elaine Saab LPN [address] [place] [address] [place] [address] 11/15/24 documented as of this encounter
--- OUTSIDE RECORDS SUMMARY | 2025-04-30 11:36 | XMS_ITS | Encounter Summary ---
Author Organization [facility] Address [address] [place] [address] Care Team Providers Care Transportation Attendant Name Role Phone Nikko Bird MD Unavailable Nikko Bird MD Primary Care Provider [phone], Mary CAR DRYER Unavailable [phone] Lorraine Morgan RN Unavailable [phone] Elaine Saab CAR DRYER Unavailable Encounter Details Date Type Department Care Team (Late st Contact Info) Description 05/14/2024 Abstract [facility] [place] [facility] 112 [facility] 110 [place] [id number] Nikko Bird MD 112 [facility] 110 [place] [address] Social History Tobacco Use Types Packs/Day Years [...] documented as of this encounter Care Teams Transportation Attendant Relationship Specialty Start Date End Date Nikko Bird MD [address] [facility] 110 [place] [address] PCP - [employer] 08/28/17 Nikko Bird MD [address] [facility] 110 [place] [address] PCP - General Family Medicine 03/09/23MondayMary LPN [address] [place] 110 [place] [address] Licensed Practical Nurse Family Medicine 06/21/24 Lorraine Morgan, KULDEEP [address] [place], [place] [address] Licensed Practical Nurse Family Medicine 10/04/2411/15 Elaine Saab LPN [address] [facility] 110 [place] [address] 11/15/24 documented as of this encounter
--- OUTSIDE RECORDS SUMMARY | 2025-04-30 11:36 | XMS_ITS | Encounter Summary ---
Author Organization [facility] Address [address] [place] [address] Care Team Providers Care Paint Brush Maker Name Role Phone Nikko Bird MD Unavailable Nikko Bird MD Primary Care Provider [phone], Mary FILTER TANK TENDER HELPER Unavailable [phone], Mary FILTER TANK TENDER HELPER Unavailable [phone] Lorraine Morgan RN Unavailable Elaine Saab FILTER TANK TENDER HELPER Unavailable Encounter Details Date Type Department Care Team (Late st Contact Info) Description 06/26/2023 [facility] [place] [facility] 112 [facility] 110 [place] [address] Nikko Bird MD 112 [facility] 110 [place] [address] Social History Tobacco Use Types Packs/Day Years [...] on filedocumented in this encounter Care Teams Paint Brush Maker Relationship Specialty Start Date End Date Nikko Bird MD [address] [place] [address] [place] [address] PCP - [employer] 08/28/17 Nikko Bird MD [address] [place] [address] [place] [address] PCP - General Family Medicine 03/09/23Monday, ISABELLA Hernandez [address] [place] [address] Licensed Practical Nurse Family Medicine 09/21/2309/21, ISABELLA Hernandez [address] [place] [address] Licensed Practical Nurse Family Medicine 06/21/24 Lorraine Morgan, RN [address] [place] [address] Licensed Practical Nurse Family Medicine 10/04/2411/15 Elaine Saab LPN [address] [facility] 110 [place] [address] 11/15/24 documented as of this encounter
--- OUTSIDE RECORDS SUMMARY | 2025-04-30 11:36 | XMS_ITS | Encounter Summary ---
Author Organization [facility] Address [address] [place] [address] Care Team Providers Care Mingle Operator Name Role Phone Nikko Bird MD Unavailable Nikko Bird MD Primary Care Provider [phone], Mary PRINTED PRODUCTS ASSEMBLER Unavailable [phone] Monday, Mary PRINTED PRODUCTS ASSEMBLER Unavailable [phone] Lorraine Morgan RN Unavailable Elaine Saab PRINTED PRODUCTS ASSEMBLER Unavailable Encounter Details Date Type Department Care Team (Late st Contact Info) Description 08/14/2023 [facility] [place] [facility] 112 [facility] 110 [place] [address] Nikko Bird MD 112 [facility] 110 [place] [address] Social History Tobacco Use Types Packs/Day Years [...] on filedocumented in this encounter Care Teams Mingle Operator Relationship Specialty Start Date End Date Nikko Bird MD [address] [place] [address] PCP - [employer] 08/28/17 Nikko Bird MD [address] [place] [address] PCP - General Family Medicine 03/09/23Monday, ISABELLA Hernandez [address] [place] [address] Licensed Practical Nurse Family Medicine 09/21/2309/21, ISABELLA Hernandez [address] [place] [address] Licensed Practical Nurse Family Medicine 06/21/24 Lorraine Morgan, RN [address] [place] [address] Licensed Practical Nurse Family Medicine 10/04/2411/15 Elaine Saab LPN [address] [facility] 110 [place] [address] 11/15/24 documented as of this encounter
--- OUTSIDE RECORDS SUMMARY | 2025-04-30 11:36 | XMS_ITS ---
Author Organization [facility] Address [address] [place] [address] Care Team Providers Care Pie Maker Name Role Phone Nikko Bird MD Unavailable Nikko Bird MD Primary Care Provider [phone] Elaine Saab LPN Unavailable Chronic Care Management (CCM) Status:Enrolled (Active) Start date:06/21/2024 Enrollment date:06/21/2024 Enrollment reason:Identified using hospital discharge data Overview 06/21/24, 9:45 AM - Marymonday, COST ANALYST- Patient gives verbal consent to be enrolled in CCM Program and understands there could be a bill for this service. Case Team Name Relationship Phone Elaine Saab LPN(Responsible Staff) [phone] Continued Care and Services Coordination
--- OUTSIDE RECORDS SUMMARY | 2025-04-30 11:36 | XMS_ITS | Clinical Summary ---
Author Organization [facility] Address [address] [facility], [address] [place] [address] Care Team Providers Care Bakery Manager Name Role Phone Nikko Bird MD Primary Care Provider [phone] Allergies No known active allergies Medications aspirin [...] coronary artery 05/13/2024 Overview (05/13/2024): Dr. 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 No 05/13/2024 Food Insecurity Answer [...] - 199 mg/dL 05/14/2024 6:13 AM EDT [facility] Comment: Cholesterol Guidelines: <200 Desirable 200-240 Borderline >240 Undesirable HDL 41 >40 mg/dL 05/14/2024 6:13 AM EDT [facility] Comment: HDL Guidelines: <40 Undesirable 40-59 Borderline >59 Desirable LDL Cholesterol 73 0 - 100 mg/dL 05/14/2024 6:13 AM EDT [facility] Comment: LDL Guidelines: <100 Desirable 100-129 Near to/above Desirable 130-159 Borderline >159 Undesirable Direct (measured) LDL and calculated LDL are not interchangeable tests. Chol/HDL Ratio 3.0 05/14/2024 6:13 AM EDT [facility] Triglycerides 85 <150 mg/dL 05/14/2024 6:13 AM EDT [facility] Comment: Triglyceride Guidelines: <150 Desirable 150-199 Borderline 200-499 High >499 Very high Based on AHA Guidelines for fasting triglyceride, May 2012. VLDL 17 mg/dL 05/14/2024 6:13 AM EDT [facility] Blood BLOOD SPECIMEN / Unknown 05/14/2024 6:13 AM EDT 05/14/2024 6:29 AM EDT us Danica Bang POLICE CRIME SCENE TECHNICIAN - BIOINFORMATICIST CHEMISTRY ORDERABLES Fi nal Result [facility] [address] [place] [address], [facility] [phone] [facility] [place] [address], [facility] [phone] from Last 3 Months or Most Recently Relevant to Health Maintenance Insurance MEDICARE MEDICARE MEDICARE Advance Directives * Full Code (Latest Code Status on File) Date Activated Date Inactivated Comments 05/13/2024 1:14 AM 05/14/2024 5:07 PM Healthcare Agents on File Name Relationship Healthcare Agent [facility] p Communication Mckenzie Gray Child Primary Decision Maker Care Teams Bakery Manager Relationship Specialty Start Date End Date Nikko Bird MD PCP - General 08/15/13
--- OUTSIDE RECORDS SUMMARY | 2025-04-30 11:36 | XMS_ITS ---
Author Organization [facility] Address [address] [place] [address] Care Team Providers Care Annual Campaign Manager Name Role Phone Nikko Bird MD Unavailable Nikko Bird MD Primary Care Provider [phone] Elaine Saab LPN Unavailable 30 Day Monitoring Program Status:Closed (Closed) Start date:03/24/2025 Enrollment date:03/24/2025 End date:04/22/2025 Close reason:Actively enrolled in CCM Continued Care and Services Coordination
--- OUTSIDE RECORDS SUMMARY | 2025-04-30 11:36 | XMS_ITS | Encounter Summary ---
Author Organization [facility] Address [address] [place] [address] Care Team Providers Care Process Mold Technician Name Role Phone iNkko Bird MD Unavailable Nikko Bird MD Primary Care Provider [phone], Mary MICROGRAPHICS SERVICES SUPERVISOR Unavailable [phone] Lorraine Morgan RN Unavailable Elaine Saab MICROGRAPHICS SERVICES SUPERVISOR Unavailable Encounter Details Date Type Department Care Team (Late st Contact Info) Description 05/01/2024 Abstract [facility] [place] [facility] 112 [facility] 110 [place] [phone] Nikko Bird MD 112 [facility] 110 [place] [address] Social History Tobacco Use Types Packs/Day Years [...] documented as of this encounter Care Teams Process Mold Technician Relationship Specialty Start Date End Date Nikko Bird MD [address] [facility] 110 [place] [address] PCP - [employer] 08/28/17 Nikko Bird MD [address] [facility] 110 [place] [address] PCP - General Family Medicine 03/09/23MondayMary LPN [address] [facility] 110 [place] [address] Licensed Practical Nurse Family Medicine 06/21/24 Lorraine Morgan, KULDEEP [address] [place], [place] [address] Licensed Practical Nurse Family Medicine 10/04/2411/15 Elaine Saab LPN [address] [facility] 110 [place] [address] 11/15/24 documented as of this encounter
--- OUTSIDE RECORDS SUMMARY | 2025-04-30 11:36 | XMS_ITS | Encounter Summary ---
Author Organization [facility] Address [address] [place] [address] Care Team Providers Care Clinical Trials Data Coordinator Name Role Phone Nikko Bird MD Unavailable Nikko Bird MD Primary Care Provider [phone], Mary STOCK CONTROLLER Unavailable [phone] Lorraine Morgan RN Unavailable Elaine Saab STOCK CONTROLLER Unavailable Encounter Details Date Type Department Care Team (Late st Contact Info) Description 05/22/2024 Abstract [facility] [place] [facility] 112 [facility] 110 [place] [phone] Nikko Bird MD 112 [facility] 110 [place] [address] Social History Tobacco Use Types Packs/Day Years [...] as of this encounter Care Teams Clinical Trials Data Coordinator Relationship Specialty Start Date End Date Nikko Bird MD [address] [facility] 110 [place] [address] PCP - Hum[employer] 08/28/17 Nikko Bird MD [address] [facility] 110 [place] [address] PCP - General Family Medicine 03/09/23MondayMary LPN [address] [facility] 110 [place] [address] Licensed Practical Nurse Family Medicine 06/21/24 Lorraine Morgan, KULDEEP [address] [place], [place] [address] Licensed Practical Nurse Family Medicine 10/04/2411/15 Elaine Saab LPN [address] [facility] 110 [place] [address] 11/15/24 documented as of this encounter
--- OUTSIDE RECORDS SUMMARY | 2025-04-30 11:36 | XMS_ITS | Encounter Summary ---
Author Organization [facility] Address [address] [place] [address] Care Team Providers Care Public Health Clinical Nurse Specialist Name Role Phone Nikko Bird MD Unavailable Nikko Bird MD Primary Care Provider [phone], Mary PACKING MACHINE FEEDER Unavailable [phone] Lorraine Morgan RN Unavailable Elaine Saab PACKING MACHINE FEEDER Unavailable Encounter Details Date Type Department Care Team (Late st Contact Info) Description 05/14/2024 Abstract [facility] [place] [facility] 112 [facility] 110 [place] [phone] Nikko Bird MD 112 [facility] 110 [place] [address] Social History Tobacco Use Types Packs/Day Years [...] documented as of this encounter Care Teams Public Health Clinical Nurse Specialist Relationship Specialty Start Date End Date Nikko Bird MD [address] [facility] 110 [place] [address] PCP - [employer] 08/28/17 Nikko Bird MD [address] [facility] 110 [place] [address] PCP - General Family Medicine 03/09/23MondayMary LPN [address] [facility] 110 [place] [address] Licensed Practical Nurse Family Medicine 06/21/24 Lorraine Morgan, KULDEEP [address] [place], [place] [address] Licensed Practical Nurse Family Medicine 10/04/2411/15 Elaine Saab LPN [address] [facility] 110 [place] [address] 11/15/24 documented as of this encounter
--- OUTSIDE RECORDS SUMMARY | 2025-04-30 11:36 | XMS_ITS | Encounter Summary ---
Author Organization [facility] Address [address] [place] [address] Care Team Providers Care Pants Closer Name Role Phone Nikko Bird MD Unavailable Nikko Bird MD Primary Care Provider [phone], Mary SEED CLEANER Unavailable [phone] Lorraine Morgan RN Unavailable Saab, Elaine SEED CLEANER Unavailable Encounter Details Date Type Department Care Team (Late st Contact Info) Description 10/12/2023 Abstract [facility] [place] [facility] 112 [facility] 110 [place] [address] Nikko Bird MD [address] [facility] 110 [place] [address] Social History Tobacco Use Types Packs/Day Years [...] on filedocumented in this encounter Care Teams Pants Closer Relationship Specialty Start Date End Date Nikko iBrd MD [address] [facility] 110 [place], [place] [phone] PCP - [employer] 08/28/17 Nikko Bird MD [address] [place] [address] [place] [address] PCP - General Family Medicine 03/09/23Monday, ISABELLA Hernandez [address] [place] [address] Licensed Practical Nurse Family Medicine 06/21/24 Lorraine Morgan, RN [address] [place] [address] Licensed Practical Nurse Family Medicine 10/04/2411/15 Elaine Saab LPN [address] [facility] 110 [place] [address] 11/15/24 documented as of this encounter
--- OUTSIDE RECORDS SUMMARY | 2025-04-30 11:36 | XMS_ITS | Encounter Summary ---
Author Organization [facility] Address [address] [place] [address] Care Team Providers Care Linux Support Engineer Name Role Phone Nikko Bird MD Unavailable Nikko Bird MD Primary Care Provider [phone], Mary ASSISTANT PROPERTY MANAGER Unavailable [phone] Lorraine Morgan RN Unavailable Elaine Saab ASSISTANT PROPERTY MANAGER Unavailable Encounter Details Date Type Department Care Team (Late st Contact Info) Description 05/13/2024 Abstract [facility] [place] [facility] 112 [facility] 110 [place] [phone] Nikko Bird MD 112 [facility] 110 [place] [address] Social History Tobacco Use Types Packs/Day Years [...] documented as of this encounter Care Teams Linux Support Engineer Relationship Specialty Start Date End Date Nikko Bird MD [address] [facility] 110 [place] [address] PCP - [employer] 08/28/17 Nikko Bird MD [address] [facility] 110 [place] [address] PCP - General Family Medicine 03/09/23MondayMary LPN [address] [facility] 110 [place] [address] Licensed Practical Nurse Family Medicine 06/21/24 Lorraine Morgan, KULDEEP [address] [place], [place] [address] Licensed Practical Nurse Family Medicine 10/04/2411/15 Elaine Saab LPN [address] [place] 110 [place] [address] 11/15/24 documented as of this encounter
--- OUTSIDE RECORDS SUMMARY | 2025-04-30 11:36 | XMS_ITS | Encounter Summary ---
Author Organization [facility] Address [address] [place] [address] Care Team Providers Care Rubber Vulcanizing Machine Operator Name Role Phone Nikko Lovelace MD Unavailable Nikko Lovelace MD Primary Care Provider [phone] Monday, Mary WRIGHTN Unavailable [phone] Lorraine Morgan RN Unavailable [phone] Elaine Saab APPEALS COORDINATOR Unavailable Encounter Details Date Type Department [...] any time in the past 12 m [facility], were you homeless or [...] PM EST Narrative 07/11/2024 9:22 [place] [address] Cardiology Report Signed Patient: TRISTIN POWELL MR#: [id number] : 1940 Acct:[id number] Age/Sex: 84 / M ADM Date: 07/11/24 Loc: LAB Attending Dr: RUSSEL ALBERTS APRN Ordering Physician: RUSSEL ALBERTS APRN Date of Service: 07/11/24 Procedure(s): CA echo limited Accession Number(s): [id number] cc: NIKKO LOVELACE ; RUSSEL ALBERTS APRN Patient Name: TRISTIN POWELL MR#: [id number] : 1940 Exam Date: 07/11/2024 Ordering Doctor: RUSSEL ALBERTS MANUFACTURING AUTOMATION ENGINEER ECHOCARDIOGRAM REPORT PROCEDURE: CA ECHO LIMITED INDICATIONS: [...] JUAREZ Signed By: 07/11/242121 DD/ 19 TD/TT: Learning Support Services Director: Procedure Note Radiology, Radiologist, - 07/11/[address] [address] Cardiology Report Signed Patient: TRISTIN POWELLMR#: [id number] : 1940cct:[id number] Age/Sex: 84 / MADM Date: 07/11/24 Loc: LAB Attending Dr: RUSSEL ALBERTS APRN Ordering Physician: RUSSEL ALBERTS APRN Date of Service: 07/11/24 Procedure(s): CA echo limited Accession Number(s): [id number] cc: NIKKO LOVELACE ; RUSSEL ALBERTS APRN Patient Name: TRISTIN POWELL MR#: [id number] : 1940 Exam Date: 07/11/2024 Ordering Doctor: RUSSEL ALBERTS MANUFACTURING AUTOMATION ENGINEER ECHOCARDIOGRAM REPORT PROCEDURE: CA ECHO LIMITED INDICATIONS: [...] MOHAMUD JUAREZ Signed By:07/11/242121 DD/ 19 TD/TT: Learning Support Services Director: Generic External Data Provider IMG XR PROCEDURES Final Result * (ABNORMAL) C-REACTIVE PROTEIN, CARDIAC (07/11/2024 1:27 PM EST) C-REACTIVE PROTEIN, CARDIAC 9.50(A) 0.00 - 3.00 mg/L [facility] Comment: Relative Risk for Future Cardiovascular Event Low <1.00 Average 1.00 - 3.00 High >3.00 Performed at: [address] [id number] Ip Network Architect: Jasper Jean Baptiste PhD, Phone: [phone] 07/11/2024 1:27 PM EST 07/11/2024 1:29 PM EST Narrative [facility] - 07/12/2024 4:07 AM EST us Generic External Data Provider LAB BLOOD ORDERAB LES Final Result [facility] documented in this encounter Visit Diagnoses Not on filedocumented in this encounter Additional Health Concerns Assessment Noted Time PHQ-9 Depression Total Score: 0 04/26/20 9:00 AM EDT documented as of this encounter Care Teams Rubber Vulcanizing Machine Operator Relationship Specialty Start Date End Date Nikko Lovelace MD [address] [place] [address] PCP - [employer] 08/28/17 Nikko Lovelace MD [address] [facility] [address] [place] [address] PCP - General Family Medicine 03/09/23MondayMary LPN [address] [place] [address] Licensed Practical Nurse Family Medicine 06/21/24 Lorraine Morgan, RN [address] [place] [address] Licensed Practical Nurse Family Medicine 10/04/2411/15 Elaine Saab LPN [address] [facility] 110 [place] [address] 11/15/24 documented as of this encounter
--- OUTSIDE RECORDS SUMMARY | 2025-04-30 11:36 | XMS_ITS | Encounter Summary ---
Author Organization [facility] Address [address] [place] [address] Care Team Providers Care Machine Sweeper Brush Maker Name Role Phone Nikko Bird MD Unavailable Nikko Bird MD Primary Care Provider [phone], Mary EGG BREAKER Unavailable [phone] Lorraine Morgan RN Unavailable Elaine Saab EGG BREAKER Unavailable Encounter Details Date Type Department Care Team (Late st Contact Info) Description 05/13/[address] [facility] [place] [facility] 112 [facility] 110 [place] [id number] Nikko Bird MD 112 [facility] 110 [place] [address] Social History Tobacco Use Types Packs/Day Years [...] as of this encounter Care Teams Machine Sweeper Brush Maker Relationship Specialty Start Date End Date Nikko Bird MD [address] [facility] 110 [place] [address] PCP - [employer] 08/28/17 Nikko Bird MD [address] [facility] 110 [place] [address] PCP - General Family Medicine 03/09/23MondayMary LPN [address] [facility] 110 [place] [address] Licensed Practical Nurse Family Medicine 06/21/24 Lorraine Morgan, KULDEEP [address] [place], [place] [address] Licensed Practical Nurse Family Medicine 10/04/2411/15 Elaine Saab LPN [address] [facility] 110 [place] [address] 11/15/24 documented as of this encounter
--- OUTSIDE RECORDS SUMMARY | 2025-04-30 11:36 | XMS_ITS | Encounter Summary ---
Author Organization [facility] Address [address] [place] [address] Care Team Providers Care Sheriff Officer Name Role Phone Nikko Bird MD Unavailable Nikko Bird MD Primary Care Provider [phone], Mary EMPLOYMENT PROGRAM REPRESENTATIVE Unavailable [phone], Mary EMPLOYMENT PROGRAM REPRESENTATIVE Unavailable [phone] Lorraine Morgan RN Unavailable [phone] Elaine Saab EMPLOYMENT PROGRAM REPRESENTATIVE Unavailable Encounter Details Date Type Department Care Team (Late st Contact Info) Description 06/14/2023 Abstract [facility] [place] [facility] 112 [facility] 110 [place] [address] Nikko Bird MD 112 [facility] 110 [place], [place] [address] Social History Tobacco Use Types Packs/Day Years [...] on filedocumented in this encounter Care Teams Sheriff Officer Relationship Specialty Start Date End Date Nikko Bird MD [address] [place] [address] PCP - [employer] 08/28/17 Nikko Bird MD [address] [place] [address] PCP - General Family Medicine 03/09/23Monday, ISABELLA Hernandez [address] [place] [address] Licensed Practical Nurse Family Medicine 09/21/2309/21, ISABELLA Hernandez [address] [place] [address] Licensed Practical Nurse Family Medicine 06/21/24 Lorraine Morgan, RN [address] [place] [address] Licensed Practical Nurse Family Medicine 10/04/2411/15 Elaine Saab LPN [address] [facility] 110 [place] [address] 11/15/24 documented as of this encounter
--- OUTSIDE RECORDS SUMMARY | 2025-04-30 11:36 | XMS_ITS | Encounter Summary ---
Author Organization [facility] Address [address] [place] [address] Care Team Providers Care Aircraft Magneto Mechanic Name Role Phone Nikko Bird MD Unavailable Nikko Bird MD Primary Care Provider [phone] Monday, Mary PUBLIC FINANCE SPECIALIST Unavailable [phone] Lorraine Morgan RN Unavailable [phone] Saab, Elaine PUBLIC FINANCE SPECIALIST Unavailable Encounter Details Date Type Department Care Team (Late st Contact Info) Description 03/25/2024 Abstract [facility] [place] [facility] 112 [facility] 110 [place] [address] Nikko Bird MD [address] [facility] 110 [place] [address] Social History Tobacco Use Types Packs/Day Years [...] on filedocumented in this encounter Care Teams Aircraft Magneto Mechanic Relationship Specialty Start Date End Date Nikko Bird MD [address] [facility] [address] [place], [place] [phone] PCP - [employer] 08/28/17 Nikko Bird MD [address] [place] [address] PCP - General Family Medicine 03/09/23Monday, ISABELLA Hernandez [address] [place] [address] Licensed Practical Nurse Family Medicine 06/21/24 Lorraine Morgan, RN [address] [place] [address] Licensed Practical Nurse Family Medicine 10/04/2411/15 Elaine Saab LPN [address] [facility] 110 [place] [address] 11/15/24 documented as of this encounter
--- OUTSIDE RECORDS SUMMARY | 2025-04-30 11:36 | XMS_ITS | Encounter Summary ---
Author Organization [facility] Address [address] [place] [address] Care Team Providers Care Sheet Sorter Name Role Phone Nikko Bird MD Unavailable Nikko Bird MD Primary Care Provider [phone], Mary SHOE COBBLER Unavailable [phone] Lorraine Morgan RN Unavailable [phone] Saab, Elaine SHOE COBBLER Unavailable Encounter Details Date Type Department Care Team (Late st Contact Info) Description 11/07/2023 Abstract [facility] [place] [facility] 112 [facility] 110 [place] [address] Nikko Bird MD [address] [facility] 110 [place] [address] Social History Tobacco Use Types Packs/Day Years [...] on filedocumented in this encounter Care Teams Sheet Sorter Relationship Specialty Start Date End Date Nikko Bird MD [address] [facility] 110 [place], [place] [address] PCP - [employer] 08/28/17 Nikko Bird MD [address] [place] [address] PCP - General Family Medicine 03/09/23Monday, ISABELLA Hernandez [address] [place] [address] Licensed Practical Nurse Family Medicine 06/21/24 Lorraine Morgan, RN [address] [place] [address] Licensed Practical Nurse Family Medicine 10/04/2411/15 Elaine Saab LPN [address] [facility] 110 [place] [address] 11/15/24 documented as of this encounter
--- OUTSIDE RECORDS SUMMARY | 2025-04-30 11:36 | XMS_ITS | Encounter Summary ---
Author Organization [facility] Address [address] [place] [address] Care Team Providers Care Tub Wash Operator Name Role Phone Nikko Bird MD Unavailable Nikko Bird MD Primary Care Provider [phone], Mary FIREARMS ASSEMBLY SUPERVISOR Unavailable [phone] Lorraine Morgan RN Unavailable [phone] Elaine Saab FIREARMS ASSEMBLY SUPERVISOR Unavailable Encounter Details Date Type Department Care Team (Late st Contact Info) Description 05/13/2024 Abstract [facility] [place] [facility] 112 [facility] 110 [place] [phone] Nikko Bird MD 112 [facility] 110 [place] [address] Social History Tobacco Use Types Packs/Day Years [...] documented as of this encounter Care Teams Tub Wash Operator Relationship Specialty Start Date End Date Nikko Bird MD [address] [facility] 110 [place] [address] PCP - [employer] 08/28/17 Nikko Bird MD [address] [facility] 110 [place] [address] PCP - General Family Medicine 03/09/23MondayMary LPN [address] [facility] [address] [place] [address] Licensed Practical Nurse Family Medicine 06/21/24 Lorraine Morgan, KULDEEP [address] [place], [place] [address] Licensed Practical Nurse Family Medicine 10/04/2411/15 Elaine Saab LPN [address] [facility] 110 [place] [address] 11/15/24 documented as of this encounter
--- OUTSIDE RECORDS SUMMARY | 2025-04-30 11:36 | XMS_ITS | Encounter Summary ---
Author Organization [facility] Address [address] [place] [address] Care Team Providers Care Malt House Supervisor Name Role Phone Nikko Bird MD Unavailable Nikko Bird MD Primary Care Provider [phone] Monday, Mary WRIGHTN Unavailable [phone] Lorraine Morgan RN Unavailable [phone] Saab, Elaine COMIC BOOK WRITER Unavailable Encounter Details Date Type Department Care Team (Late st Contact Info) Description 07/29/2024 Abstract [facility] [place] [facility] 112 [facility] 110 [place] [address] Nikko Bird MD 112 [facility] 110 [place] [address] Social History Tobacco Use Types Packs/Day Years [...] Recorded Patient Health Questionnaire-2 Score 0 04/26/2024 [facility] - [...] documented as of this encounter Care Teams Malt House Supervisor Relationship Specialty Start Date End Date Nikko Bird MD [address] [place] [address] PCP - [employer] 08/28/17 Nikko Bird MD [address] [place] [address] PCP - General Family Medicine 03/09/23MondayMary LPN [address] [place] [address] Licensed Practical Nurse Family Medicine 06/21/24 Lorraine Morgan, RN [address] [place] [address] Licensed Practical Nurse Family Medicine 10/04/2411/15 Elaine Saab LPN [address] [place] [address] 11/15/24 documented as of this encounter
--- NOTE | 2025-04-30 11:39 | XR_ITS ---
The [place] [id number] Patient Name: REJI POWELL MRN: [id number] date: 1940 Sex: M Assigned Patient Location: ER Current Patient Location: ED.MAIN Accession/Order Number: [id number] Exam Date: 04/30/2025 12:32 Report Date: 04/30/2025 13:15 At the request of: ROSE MARY YIP DO Procedure: XR chest 2V Chest 2 views CLINICAL HISTORY: cough COMPARISON: None FINDINGS: Sternotomy wires are noted. Bibasilar atelectasis/scarring. No consolidation pneumothorax pleural effusion or free air. XR/XR chest 2V IMPRESSION: BIBASILAR ATELECTASIS/SCARRING. NO CONSOLIDATION TO SUGGEST PNEUMONIA. Impression dictated by: Nabor Solitario Jr., DNeftaliONeftali 04/30/2025 1:15 PM Dictation Location: [place] [address] Electronically authenticated by: [id number] Y Date: 04/30/2025 13:15
[2025-04-30] MEDS: PREDNISONE 20 MG TABLET 40 MG PO (11:54)
[2025-04-30] MEDS: IPRATROPIUM/ALBUTEROL SULFATE 3 ML AMPUL.NEB 6 ML IH (12:07)
[2025-04-30 12:10] LABS: NT Pro B Type Natriuretic Pept 1177.0 pg/mL (<=1800.0)
--- NOTE | 2025-04-30 14:27 | ED.GENADUL1 ---
HPI HPI - General Adult General Chief complaint: Shortness of Breath/Dyspnea Stated complaint: URTI COMPLAINTS Time Seen by Provider: 04/30/25 11:37 Source: patient Mode of arrival: walk-in Limitations: no limitations History of Present Illness HPI narrative: Patient is an 85-year-old male presenting to the emergency department for evaluation of cough for the last 4 days. Patient states he has a history of COPD/bronchitis. States he has been taking his albuterol treatments 3 times a day for the last few days. He states that his symptoms seem to be getting worse. He states he is on Bactrim and Augmentin for a foot infection, which seems to be clearing up. He denies any fevers or chills. States he is coughing up clear sputum. He denies any significant chest pain or associated shortness of breath. He is not on home oxygen. Related Data Previous Rx's ?Medication ?Instructions ?Recorded prednisone 20 mg tablet 40 mg (2 x 20 mg) PO DAILY 04/30/25 bronchitis/COPD 4 days #8 tabs Allergies Allergy/AdvReac Type Severity Reaction Status Date / Time gabapentin AdvReac Mild Blurry Verified 04/30/25 11:22 Vision trazodone AdvReac Mild confusion Verified 04/30/25 11:22 Review of Systems ROS Status of ROS 10 or more systems reviewed and unremarkable except as noted in history and below PFSH PFSH Social History Little interest or pleasure in doing things: not at all Feeling down, depressed, or hopeless: not at all Exam Narrative Exam Narrative: CONSTITUTIONAL: Well-appearing, continuously having a bronchospastic cough during my interview, answering questions and following commands appropriately SKIN: Was warm and dry. EYES: Sclerae white. No conjunctival pallor. EARS, NOSE, THROAT: Moist oral mucosa. RESPIRATORY: Mild, diffuse bilateral expiratory wheezing without use of accessory muscles. Speaking in full sentences. CARDIOVASCULAR: Normal rate and regular rhythm. There is no S3, S4, murmur, rub. GASTROINTESTINAL: Abdomen is nondistended. MUSCULOSKELETAL: No peripheral edema. NEUROLOGIC: Patient is awake and alert. Facies were symmetrical. Constitutional Vital Signs, click to edit/add: Last Vital Signs Temp 97.9 F 04/30/25 11:22 Pulse 78 04/30/25 11:22 Resp 22 H 04/30/25 11:22 BP 135/62 04/30/25 11:22 Pulse Ox 94 L 04/30/25 11:22 O2 Del Method Room Air 04/30/25 11:22 Course Vital Signs Vital signs: Vital Signs Temperature 97.9 F 04/30/25 11:22 Pulse Rate 78 04/30/25 11:22 Respiratory Rate 22 H 04/30/25 11:22 Blood Pressure 135/62 04/30/25 11:22 Pulse Oximetry 94 L 04/30/25 11:22 Oxygen Delivery Method Room Air 04/30/25 11:22 Temperature 97.9 F 04/30/25 11:22 Pulse Rate 78 04/30/25 11:22 Respiratory Rate 22 H 04/30/25 11:22 Blood Pressure 135/62 04/30/25 11:22 Pulse Oximetry 94 L 04/30/25 11:22 Oxygen Delivery Method Room Air 04/30/25 11:22 Medical Decision Making MDM Narrative Medical decision making narrative: Patient is a 85-year-old male, history significant for COPD/bronchitis, presenting to the emergency department with 4-day history of persistent cough. His vital signs are within normal limits. He is afebrile and hemodynamically stable. He is saturating 94% on room air in no respiratory distress. Examination was notable for a persistent bronchospastic cough and mild bilateral expiratory wheezes. Differential diagnosis includes COPD exacerbation, bronchitis, pneumonia, heart failure, or other electrolyte/metabolic derangement. Patient just had outpatient laboratory studies drawn today, therefore, I only ordered an additional troponin and BNP. He was treated symptomatically with nebulized albuterol/Pratropium and oral prednisone. Laboratory studies were unremarkable. No significant electrolyte or metabolic derangement. No evidence of acute kidney injury. No anemia, leukocytosis, or thrombocytopenia. Troponin and BNP not elevated. Chest x-ray independently reviewed/interpreted by myself and radiology demonstrated no acute cardiopulmonary process. On reevaluation, patient states he feels improved. His wheezing is almost resolved. I offered to give him another breathing treatment, however he feels well and comfortable being discharged. I do believe the patient is stable for discharge at this time. Patient's presentation is most likely consistent with bronchitis/mild COPD exacerbation. They were instructed to follow up with his PCP for earlier. Return precautions were given including any new or worsening symptoms. They were given a prescription for prednisone 40 mg x 4 days. Patient understands and agrees to the plan. FINAL IMPRESSION: #Acute bronchitis, mild COPD exacerbation DISPOSITION: Discharged home CONDITION: Good Medical Records Medical records reviewed: Yes I reviewed the patient's medical records Lab Data Lab results reviewed: Yes I reviewed the patient's lab results Labs: Lab Results 04/30/25 Range/Units 11:00 Troponin I High Sens 42.3 (4.0-76.1) pg/mL NT-Pro-B Natriuret Pep 1177.0 (<=1800.0) pg/mL Imaging Data Chest x-ray: Attestation: I personally reviewed and interpreted this imaging study as follows: Radiologist's impression: ITS Impressions Chest X-Ray 04/30/25 11:39 IMPRESSION: BIBASILAR ATELECTASIS/SCARRING. NO CONSOLIDATION TO SUGGEST PNEUMONIA. Impression dictated by: Nabor Solitario Jr., D.O. 04/30/2025 1:15 PM Dictation Location: [place] [address] Electronically authenticated by: [id number] Y Date: 04/30/2025 13:15 Discharge Plan Discharge Chief Complaint: Shortness of Breath/Dyspnea Clinical Impression: Bronchitis Patient Disposition: Home, Self-Care Time of Disposition Decision: 12:59 Condition: Good Mode of Transportation: Private Vehicle Prescriptions / Home Meds: New prednisone 20 mg tablet 40 mg PO DAILY 4 Days Qty: 8 0RF Print Language: Citizen Of [place] Instructions: Acute Bronchitis (ED) Referrals: FLASH LOVELACE [Primary Care Provider, Family Practice] - 1 week Discharge Date/Time: 04/30/25 13:20
--- OUTSIDE RECORDS SUMMARY | 2025-04-30 16:00 | XMS_ITS | CCD ---
Author Organization [facility] Care Team Providers Care Director Report Name Role Phone ELTAHAWY, EHAB A Unavailable Unavailable ELTAHAWY, EHAB A Unavailable Unavailable DAVON LOVELACEEN Unavailable Unavailable YANIRA PRESTON AM Unavailable Unavailable RIEGO, FILMORE A. Unavailable Unavailable MONIQUEEGO, FILMORE A. Unavailable Unavailable Flash Lovelace Primary Care Provider FLYNN MANN Attending Unavailabl e FLYNN MANN Referring Unavailabl e FLASH LOVELACE Primary Care Unavailable FLYNN MANN Admitting Unavailabl e [facility] Consulting Monisha MURO, SANTOSH YOUSIF Consulting Unavailable ISAIAS VOGT Attending Unavailable ISAIAS VOGT Referring Unavailable ISAIAS VOGT Attending Unavailable ISAIAS VOGT Referring Unavailable SHAYY WAY Attending Unavailable DUKE SANTOS Attending Unavailable DUKE SANTOS Referring Unavailable ANALIA FOX Attending Unavailable Flash Lovelace Primary Care Provider [phone] Flash Lovelace MD Primary Care Provider [phone] Flash Lovelace MD Primary Care Provider ILEANA KANG Attending Unavailable FLASH LOVELACE Primary Care Unavailable Flash Lovelace MD Primary Care Provider Cristian Beaver Unavailable MD Flash Lovelace Primary Care Provider MD Cristian Beaver Attending Provider WAGNER MOON Referring Unavaila WAGNER Vogt Attending Unavaila FLASH Newton Primary Care Unavailable Flash Lovelace MD Primary Care Provider Flash Lovelace MD Primary Care Provider FLASH LOVELACE Primary Care Unavailable Dalila Arreguin Attending Unavailable FLASH LOVELACE Primary Care Physician [phone] Haven Malcolm Unavailable [place], DR VIDALES Primary [...] Attending Provider MD Cristian Beaver Attending Provider [phone] Flash Lovelace MD Primary Care Provider [phone] SCAR ORTEGA Referring Unavailable FLASH LOVELACE [facility] Care Unavailable SCAR ORTEGA Attending Unavailable FLASH LOVELACE [facility] Unavailable SELF, SELF Referring Unavailable SCAR ORTEGA Attending Unavailable MD Flash Lovelace Primary Care Provider MD Cristian Beaver Attending Provider [phone] MD Eliezer Carvalho V Attending Provider MD Duke Dunbar Referring Provider BRENNA MOSQUERA Attending Unavailable FLASH LOVELACE Primary Care Unavailable GISEL MANN Admitting Unavailable ERAN HARPER Consulting Unavailable JUAN EARL Attending Unavailable Flash Lovelace MD Unavailable Flash Lovelace MD Primary Care Provider [phone] Monday BREAKFAST SERVER, Mary Unavailable Flash Lovelace MD Primary Care Provider [phone] Lorraine Morgan RN Unavailable [phone] Saab BREAKFAST SERVER, Elaine Unavailable Unavailable MODAJA, ELIEZER Admitting Unavailable ELIEZER CARVALHO Attending Unavailable RUSSEL VALLEJO Attending Unavailable DEVEN, ELIEZER Attending Unavailable ELIEZER CARVALHO Attending Unavailable RUSSEL VALLEJO Attending Unavailable Saab BREAKFAST SERVER, Elaine Unavailable Flash Lovelace MD Primary Care Provider Cristian Beaver MD Attending Provider [phone] Cristian Beaver Admitting Unavailable Cristian Beaver Attending [...] Attending Unavailable HEMZOË BERNARD Attending Unavailable [place] RUGDANA Arteaga Attending Unavailable [place], RUGEN M Primary [...] Doxycycline (2 sources) Doxycycline Drug Allergy 9 [facility] (1 source) 97038,00; Translations: [58088,00] Propensity to adverse reactions (disorder) 9 [facility] (11 sources) oxyCODONE; Translations: [oxycodone] Drug Allergy 7 Anaphylaxis, Anaphylaxis (disorder) [facility] (20 sources) Doxycycline; Translations: [DOXYCYCLINE] Drug Allergy 9 Unknown [facility] (20 sources) gabapentin; Translations: [GABAPENTIN] Drug Allergy 5 GI Intolerance [facility] Medications Current Medications Medication Drug Class(es) Dates [...] 6 hours scheduled (RT), First dose on [facility] 11/03/22 at 2230 Start: 11-03-2022 End: 11-08-2022 take 3 mL by inhalation every four hours as needed 3 mL, Inhalation, Every 4 hours PRN (RT), shortness of breath, Starting on [facility] 11/03/22 at 2228 Start: 11-03-2022 End: [...] 05-10-2017 take 2 tablets by mo [facility] once daily Atorvastatin 20 mg Tablet Active [...] tab . Active take 1 tablet [facility], then take 0.5 tablet by mouth twice daily atorvastatin 40 MG Tab tablet Take 1 tablet by mouth 2 times daily. Takes 1/2 tab bid 0 Active azithromycin 250 mg oral tablet (4 sources) Macrolide Antimicrobial Start: 04-29-2025 End: 05-04-2025 [...] End: 05-21-2024 ergocalciferol (Vitamin D-2) 1.25 MG (54829 UT) capsule Take 50,000 Units by mouth [...] 03/31/2025 Discontinued (Other) naloxone (NARCAN) 4 mg/actuation [place] (4 sources) Start: 03-21-2025 naloxone (NARC AN) 4 mg/actuation [place] Administer 1 spray into one nostril for known or suspected opioid overdose. If patient worsens or does not respond, may repeat in 2-3 minutes. . 2 each 03/21/2025 Active Start: 03-21-2025 naloxone (NARC AN) 4 mg/actuation [place] Administer 1 spray into one nostril for [...] For 3 doses Anginal pain, may repeat [id number] x3, then notify physician. DO NOT CRUSH [...] 11:00pm Start: 04-25-2022 take 1 capsule by [facility] once daily Omeprazole (Prilosec) 40 mg [...] 03/13/2019 Discontinued (Therapy completed) polyethylene glycol 3350 35991 mg powder for oral solution (20 sources) [...] by mouth . 0 01/19/2022 Discontinued sennosides, nursing home 8.6 mg oral tablet (9 sources) Start: [...] or greater, headaches, Starting Mon09/05/18 at 1603 [id number] 200 actuat albuter ol 0.09 mg/actuat metered [...] Analog, Prostaglandin E1 Agonist End: 08-09-2023 alprostadiL ([place]) 500 mcg pellet aluminum hydroxide 40 mg/ml [...] / neomycin 3.5 mg/ml / polymyxin b 18520 unt/ml ophthalmic suspension (1 source) Aminoglycoside Antibacterial, Polymyxin-class Antibacterial, Corticosteroid End: 08-09-2023 neomycin-polymyxi n-dexamethasone (MAXITROL) 3.5mg/mL-10,000 unit/mL-0.1 % ophthalmic suspension docusate sodium 50 mg / sennosides, nursing home 8.6 mg oral tablet (13 sources) Start: [...] Corticosteroid, beta2-Adrenergic Agonist Start: 10-27-2022 End: 08-09-2023 kpxnqyjhnyr-bxvrtdxwt-iqwrtl er (Trelegy Ellipta) 100-62.5-25 mcg DsDv 1 [...] 0200 Start: 10-05-2021 take 1 capsule by [facility] three times daily gabapentin 300 mg [...] (eight) hours (Days supply per fill: {DAYS SUPPLY:38293}) . 0 Active 250 ml heparin sodium, [...] NaCl (DILAUDID) 15 mg/30 mL (0.5 mg/mL) [place] (1 source) Start: 09-06-2018 End: 09-07-2018 HYDROmorphone in 0.9 % NaCl (DILAUDID) 15 mg/30 mL (0.5 mg/mL) [place] iopamidoL (ISOVUE-370) 370 m g iodine /mL [...] Onset: 9 Episodic Chronic ulcer of skin (17 sources) Ulcer of toe; Translations: [Ischemic ulcer [...] Coronary atherosclerosis; Translations: [Atherosclerotic heart disease of [place] coronary artery without angina pectoris] Onset: 8 [...] caused by tuberculosis or sexually transmitted disease) (12 sources) Osteomyelitis of right foot; Translations: [Osteomyelitis, [...] sources) Peripheral vascular disease; Translations: [Atherosclerosis of [place] arteries of the extremities] Onset: 8 Resolved: 2 Chronic Peripheral and visceral atherosclerosis (1 source) 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 1 mg/dL [facility] Chloride [Moles/Vol] 106 mmol/L 98 - 10 7 mmol/L [facility] CO2 [Moles/Vol] 24.9 mmol/L 21.0 - 32.0 mmol/L [facility] Creatinine [Mass/Vol] 1.04 mg/dL 0.70 - 1.30 mg/dL [facility] GFR/1.73 sq M.predicted CKD-EPI (S/P/Bld) [Vol rate/Area] >60 >=60 mL/min/1.73m 2 [facility] Glucose [Mass/Vol] 103 mg/dL 74 - 106 mg/dL [facility] Potassium [Moles/Vol] 4.8 mmol/L 3.5 - 5.1 mmol/L [facility] Sodium [Moles/Vol] 140 mmol/L 136 - 145 mmol/L [facility] TBH EGFR-NON AF MOZAMBICAN >60 >=60 mL/min/1.73m 2 [facility] Urea nitrogen [Mass/Vol] 13 mg/dL 7.0 - 18.0 mg/dL [facility] Urea nitrogen/Creatinine [Mass ratio] 12.5 mg/mg [facility] ALL C REACTIVE PROTEINon C REACTIVE PROTEIN 3.08 mg/dL High NINF - 0. 50 mg/dL [facility] Interpretation and review of laboratory results Abnormal [facility]KLE/BRACHIAL INDICES EX TREMITY LIMITEDon 04-23-2025 US ANKLE/BRACHIAL INDICES EXTREMITY LIMITED Patient Info Name: Tristin Powell Age: 85 years : 1940 Gender: Male Exam Date: 04/23/2025 12:53 PM Patient Status: OUTPATIENT Site Location: [facility] Indications I73.9 - Peripheral vascular disease, unspecified I70.229 - Atherosclerosis of [place] arteries of extremities with rest pain, unspecified extremity Procedure Description 45317 Limited bilateral noninvasive physiologic studies of upper or lower extremity arteries with bidirectional Doppler/PVR waveform analysis at 1-2 levels. Point Of Care Technician: Ying Fiore RDCS, RVT Staff Ordering Physician: Mohsen Sarabia MD, VI Conclusions * Right. * Right [...] Segmental BP RIGHT Brachial A mmH RIGHT COLLEGE OR UNIVERSITY REGISTRAR mmH RIGHT COLLEGE OR UNIVERSITY REGISTRAR Index: 0.96 RIGHT DPA mmH RIGHT DPA Index: 0.92 RIGHT YAMILE Index: 0.96 LEFT Brachial A mmH LEFT COLLEGE OR UNIVERSITY REGISTRAR Index: 0.48 LEFT COLLEGE OR UNIVERSITY REGISTRAR mmH LEFT DPA Index: 0.61 LEFT DPA mmH LEFT YAMILE Index: 0.61 Doppler RIGHT COLLEGE OR UNIVERSITY REGISTRAR Waveform: Multiphasic RIGHT DPA Waveform: Multiphasic LEFT COLLEGE OR UNIVERSITY REGISTRAR Waveform: Monophasic LEFT DPA Waveform: Monophasic , PVR RIGHT Ankle Grade: Abnormal RIGHT Transmetarsal Grade: Abnormal LEFT Ankle Grade: Abnormal Report Signatures Finalized by Nemo Conner MD, PHD, RVT on 04/23/2025 02:41 PM [facility] DUPLEX LE BYPASS GRAFT CO MPL BILATon 04-23-2025 DUPLEX LE BYPASS GRAFT COMPL BILAT Patient Info Name: Tristin Powell Age: 85 years : 1940 Gender: Male Exam Date: 04/23/2025 12:53 PM Patient Status: OP SERIES Site Location: [facility] Indications I73.9 - Peripheral vascular disease, unspecified I70.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 Point Of Care Technician: Jigna Vera RDMS, RVT Staff Ordering [...] Artery Segment: Gabriela LEFT Inflow Artery Segment: NURSE RESEARCHER LEFT Inflow Artery PSV: 126 LEFT Inflow [...] MD, RPVI, RVT on 04/23/2025 02:41 PM Normal [facility] XR FOOT RT MIN 3Von 04-16-[address] [address] XRay Report Signed Patient: TRISTIN POWELL MR#: [id number] : 1940 Acct:[id number] Age/Sex: 85 / M ADM Date: 04/15/25 Loc: RAD Attending Dr: Savanna Feliz D.P.M. Ordering Physician: Savanna Feliz D.P.M. Date of Service: 04/15/25 Procedure(s): XR foot RT min 3V Accession Number(s): [id number] cc: FLASH LOVELACE ; Savanna Feliz D.P.M. The [place] [id number] Patient Name: TRISTIN POWELL MRN: [facility]:[id number] date: 1940 Sex: M Assigned Patient Location: [facility] Current Patient Location: Accession/Order Number: [id number] Exam Date: 04/16/2025 12:46 Report Date: 04/16/2025 [...] Rodriguez M.D. 04/16/2025 12:49 PM Dictation Location: [place] [address] Electronically authenticated by: [id number] Y Date: 04/16/2025 12:49 Dictated By: Cristian Rodriguez D.O. Signed By: 04/16/25 1252 DD/ 1249 TD/TT: Boiler House Supervisor: [facility] Radiology, Radiologist, MD - 04/16/2025 [place] [address] XRay Report Signed Patient: TRISTIN POWELL MR#: [id number] : 1940 Acct:[id number] Age/Sex: 85 / M ADM Date: 04/15/25 Loc: RAD Attending Dr: Savanna Feliz D.P.M. Ordering Physician: Savanna Feliz D.P.M. Date of Service: 04/15/25 Procedure(s): XR foot RT min 3V Accession Number(s): [id number] cc: ALBANIAFLASH ; Savanna Feliz D.P.M. [place] [id number] Patient Name: TRISTIN POWELL MRN: [id number] date: 1940 Sex: M Assigned Patient Location: [facility] Current Patient Location: Accession/Order Number: [id number] Exam Date: 04/16/2025 12:46 Report Date: 04/16/2025 [...] Rodriguez M.D. 04/16/2025 12:49 PM Dictation Location: [place] [address] Electronically authenticated by: [id number] Y Date: 04/16/2025 12:49 Dictated By: Cristian Rodriguez D.O. Signed By: 04/16/25 1252 DD/ 1249 TD/TT: Boiler House Supervisor: [facility] Radiology Study observation (narrative) [facility] XR FOOT RT MIN 3VOrdered By: Radiologist Radiology on 04-16-2025 [facility] Work Phone: ALL CBC WITH AUTO DIFFon BASOPHILS ABSOLUTE AUTO 0 [facility] Basophils/100 WBC (Bld) 0.6 % 0.2 - 2.0 % [facility] Eosinophils/100 WBC (Bld) 5.9 % 0.9 - 7.0 % [facility] Erythrocyte distribution width (RBC) [Ratio] 15.2 % High 11.0 - 15.0 % [facility] Hematocrit (Bld) [Volume fraction] 35.1 % Low 42.0 - 54.0 % [facility] Hemoglobin (Bld) [Mass/Vol] 11.8 g/dL Low 14.0 - 18.0 g/dL [facility] IMMATURE GRANULOCYTES ABS AUTO 0.02 [facility] Immature granulocytes/100 WBC (Bld) 0.6 % High 0.0 - 0.5 % [facility] Interpretation and review of laboratory results Abnormal [facility] LYMPHOCYTES ABSOLUTE AUTO 0.8 Low [facility] Lymphocytes/100 WBC (Bld) 24.1 % 20.5 - 60.0 % [facility] MCH (RBC) [Entitic mass] 31.2 pg 25.9 - 34.0 pg [facility] MCHC (RBC) [Mass/Vol] 33.6 g/dL 29.9 - 35.2 g/dL [facility] MCV (RBC) [Entitic vol] 92.9 fL 80.0 - 94.0 fL [facility] MONOCYTES ABSOLUTE AUTO 0.6 [facility] Monocytes/100 WBC (Bld) 18.9 % High 1.7 - 12.0 % [facility] NEUTROPHILS ABSOLUTE AUTO 1.6 [facility] Neutrophils/100 WBC (Bld) 49.9 % 43.0 - 75.0 % [facility] Platelet mean volume (Bld) [Entitic vol] 8.9 fL Low 9.5 - 13.5 fL [facility] PLT [facility] RBC 3.78 Low [facility] WBC 3.2 Low [facility] MR FOOT RIGHT WO IV CONTRAST on [...] Healthcare HERPES SIMPLEX VIRUS 2 Not detected [facility] HUMAN MONKEYPOX VIRUS 0 [facility] HUMAN MONKEYPOX VIRUS Not detected N S Healthcare VARICELLA ZOSTER VIRUS (HUMAN HERPESVIRUS 3) 0 [facility] VARICELLA ZOSTER VIRUS (HUMAN HERPESVIRUS 3) Not detected [facility] Healthcare [facility] Healthcare BASIC METABOLIC PANELon 02-26 Anion gap [Moles/Vol] 14 mmol/L Normal 10-20 [facility] Comment on above: Order Comment: [facility] has implemented the eGFR calculation approach that does not have a coefficient for race that conforms to the NKF-ASN Task Force Recommendations. Performed By: #### [id number] ####[facility] [address] [place] [address] Emmanuel Plata M.D. [id number] Calcium [Mass/Vol] 9.4 mg/dL Normal 8.4-10.2 [facility] Comment on above: Order Comment: [facility] has implemented the eGFR calculation approach that does not have a coefficient for race that conforms to the NKF-ASN Task Force Recommendations. Performed By: #### 4 [id number] ####[facility] [address] [place] [address] Emmanuel Plata M.D. [id number] Chloride [Moles/Vol] 108 mmol/L Normal 98-108 [facility] Comment on above: Order Comment: [facility] has implemented the eGFR calculation approach that does not have a coefficient for race that conforms to the NKF-ASN Task Force Recommendations. Performed By: #### 4 [id number] ####[facility] [address] [place] [address] Emmanuel Plata M.D. [id number] Creatinine [Mass/Vol] 0.98 mg/dL Normal 0.80-1.30 [facility] Comment on above: Order Comment: [facility] has implemented the eGFR calculation approach that does not have a coefficient for race that conforms to the NKF-ASN Task Force Recommendations. Performed By: #### 4 [id number] ####[facility] [address] [place] [address] Emmanuel Plata M.D. [id number] EGFR 75 mL/min/1.73 m2 Normal >=60 [facility] Comment on above: Order Comment: [facility] has implemented the eGFR calculation approach that does not have a coefficient for race that conforms to the NKF-ASN Task Force Recommendations. Result Comment: Maria Del Carmen mated GFR was calculated using the 2020 CKD-EPI creatinine equation. Performed By: #### 4 [id number] ####[facility] [address] [place] [address] Emmanuel Plata M.D. [id number] Glucose [Mass/Vol] 109 mg/dL High 65-99 [facility] Comment on above: Order Comment: [facility] has implemented the eGFR calculation approach that does not have a coefficient for race that conforms to the NKF-ASN Task Force Recommendations. Performed By: #### 4 [id number] ####[facility] [address] [place] [address] Emmanuel Plata M.D. [id number] HCO3 (Bld) [Moles/Vol] 22 mmol/L Normal 21-32 [facility] Comment on above: Order Comment: [facility] has implemented the eGFR calculation approach that does not have a coefficient for race that conforms to the NKF-ASN Task Force Recommendations. Performed By: #### 4 [id number] ####[facility] [address] [place] [address] Emmanuel Plata M.D. [id number] Potassium [Moles/Vol] 4.0 mmol/L Normal 3.5-5.1 [facility] Comment on above: Order Comment: [facility] has implemented the eGFR calculation approach that does not have a coefficient for race that conforms to the NKF-ASN Task Force Recommendations. Result Comment: Slig htly Hemolyzed Performed By: #### 4 [id number] ####[facility] [address] [place] [address] Emmanuel Plata M.D. [id number] Sodium [Moles/Vol] 140 mmol/L Normal 135-145 [facility] Comment on above: Order Comment: [facility] has implemented the eGFR calculation approach that does not have a coefficient for race that conforms to the NKF-ASN Task Force Recommendations. Performed By: #### 4 [id number] ####[facility] [address] [place] [address]35[address] Emmanuel Plata M.D. [id number] Urea nitrogen [Mass/Vol] 19 mg/dL Normal 8-25 [facility] Comment on above: Order Comment: [facility] has implemented the eGFR calculation approach that does not have a coefficient for race that conforms to the NKF-ASN Task Force Recommendations. Performed By: #### 4 [id number] ####[facility] [address] [place] [address] Emmanuel Plata M.D. [id number] Urea nitrogen/Creatinine [Mass ratio] 19.4 mg/mg Normal 10.0-20.0 [facility] Comment on above: Order Comment: [facility] has implemented the eGFR calculation approach that does not have a coefficient for race that conforms to the NKF-ASN Task Force Recommendations. Performed By: #### 4 6133 ####[facility] [address] [place] [address]67[address] Emmanuel Plata M.D. [id number] Basic metabolic 2000 panelOr dered By: Beka Aiken on 03-21-2025 Anion gap [Moles/Vol] 14 mmol/L 10 - 2 0 mmol/L [facility] Calcium [Mass/Vol] 9.4 mg/dL 8.4 - 10. 2 mg/dL [facility] Chloride [Moles/Vol] 108 mmol/L 98 - 10 8 mmol/L [facility] Creatinine [Mass/Vol] 0.98 mg/dL 0.80 - 1.30 mg/dL [facility] GFR/1.73 sq M.predicted CKD-EPI (S/P/Bld) [Vol rate/Area] 75 - PINF [facility] Comment on above: Estimated GFR was ca lculated using the 2020 CKD-EPI creatinine equation. Glucose [Mass/Vol] 109 mg/dL High 65 - 99 mg/dL [facility] HCO3 [Moles/Vol] 22 mmol/L 21 - 32 mmol/L [facility] Interpretation and review of laboratory results Abnormal [facility] Potassium [Moles/Vol] 4 mmol/L 3.5 - 5.1 mmol/L [facility] Comment on above: Slightly Hemolyzed Sodium [Moles/Vol] 140 mmol/L 135 - 145 mmol/L [facility] Urea nitrogen [Mass/Vol] 19 mg/dL 8 - 25 mg/dL [facility] Urea nitrogen/Creatinine [Mass ratio] 19.4 mg/mg 10.0 - 20.0 [facility] Services has implemented the eGFR calculation approach that does not have a coefficient for race that conforms to the NKF-ASN Task Force Recommendations. [facility] CBCon 03-21-2025 AUTO NRBC 0.0 % Normal [facility] Comment on above: Performed By: #### 4 [id number] #### [facility] [address] [place] [address]82[address] Emmanuel Plata M.D. [id number] AUTO NRBC ABS COUNT 0.00 K/mcL Normal 0.00-0.00 [facility] Comment on above: Performed By: #### 4 [id number] #### [facility] [address] [place], [place] [id number] Emmanuel Plata M.D. [id number] Erythrocyte distribution width (RBC) [Ratio] 13.7 % Normal 11.6-14.8 [facility] Comment on above: Performed By: #### 4 [id number] #### [facility] [address] [place] [address] Emmanuel Plata M.D. [id number] Hematocrit (Bld) [Volume fraction] 30.0 % Low 41.0-53.0 [facility] Comment on above: Performed By: #### 4 [id number] #### [facility] [address] [place] [address] Emmanuel Plata M.D. [id number] Hemoglobin (Bld) [Mass/Vol] 10.5 g/dL Low 13.5-17.5 [facility] Comment on above: Performed By: #### 4 [id number] #### [facility] [address] [place], [place] [address] Emmanuel Plata M.D. [id number] MCH (RBC) [Entitic mass] 33.2 pg Normal 26.0-34.0 [facility] Comment on above: Performed By: #### [id number] #### [facility] [address] [place], [place] [id number] Emmanuel Plata M.D. [id number] MCV (RBC) [Entitic vol] 94.9 fL Normal 80.0-100.0 [facility] Comment on above: Performed By: #### 4 [id number] #### [facility] [address] [place], [place] [id number] Emmanuel Plata M.D. [id number] MEAN CORPUSCULAR HEMOGLOBIN CONC 35.0 g/dL Normal 31.0-37.0 [facility] Comment on above: Performed By: #### 4 [id number] #### [facility] [address] [place] [address] Emmanuel Plata M.D. [id number] Platelet mean volume (Bld) [Entitic vol] 9.7 fL Normal 9.4-12.4 [facility] Comment on above: Performed By: #### 4 [id number] #### [facility] [address] [place] [id number] Emmanuel Plata M.D. [id number] Platelets (Bld) [#/Vol] 213 10*3/uL Normal 150-400 [facility] Comment on above: Performed By: #### 4 [id number] #### [facility] [address] [place], [place] [address] Emmanuel Plata M.D. [id number] RBC (Bld) [#/Vol] 3.16 10*6/uL Low 4.50-5.90 [facility] Comment on above: Performed By: #### 4 [id number] #### [facility] [address] [place], [place] [address] Emmanuel Plata M.D. [id number] WBC (Bld) [#/Vol] 4.33 10*3/uL Low 4.50-11.00 [facility] Comment on above: Performed By: #### 4 [id number] #### [facility] [address] [place] [address] 17456 Emmanuel Plata M.D. [id number] CBC panel Auto (Bld)on 03-21 Erythrocyte distribution width (RBC) [Entitic vol] 13.7 % 11.6 - 14.8 % [facility] Hematocrit (Bld) [Volume fraction] 30 % Low 41.0 - 53.0 % [facility] Hemoglobin (Bld) [Mass/Vol] 10.5 g/dL Low 13.5 - 17.5 g/dL [facility] Interpretation and review of laboratory results Abnormal [facility] MCH (RBC) [Entitic mass] 33.2 pg 26.0 - 34.0 pg [facility] MCHC (RBC) [Mass/Vol] 35 g/dL 31.0 - 37.0 g/dL [facility] MCV (RBC) [Entitic vol] 94.9 fL 80.0 - 100.0 fL [facility] Nucleated RBC (Bld) [#/Vol] 0 10*3/uL [facility] Nucleated RBC/100 WBC (Bld) [Ratio] 0 % [facility] Platelet mean volume (Bld) [Entitic vol] 9.7 fL 9.4 - 12.4 fL [facility] Platelets (Bld) [#/Vol] 213 10*3/uL [facility] RBC (Bld) [#/Vol] 3.16 10*6/uL Low [facility] WBC (Bld) [#/Vol] 4.33 10*3/uL Low [facility] MAGNESIUM LEVELon 03-21-2025 Magnesium [Mass/Vol] 2.1 mg/dL Normal 1.6-2.4 [facility] Comment on above: Performed By: #### 4 [id number] #### [facility] [address] [place] [address] Emmanuel Plata M.D. [id number] Magnesiumon 03-21-2025 Magnesium [Mass/Vol] 2.1 mg/dL 1.6 - 2 .4 mg/dL [facility] Magnesium [Mass/Vol]on 03-21 Interpretation and review of laboratory results Normal [facility] No Panel Informationon 03-21 [facility] BASIC METABOLIC PANELon 02-26 Anion gap [Moles/Vol] 14 mmol/L Normal 10-20 [facility] Comment on above: Order Comment: [facility] has implemented the eGFR calculation approach that does not have a coefficient for race that conforms to the NKF-ASN Task Force Recommendations. Performed By: #### 4 [id number] #### [facility] [address] [place] [address] Emmanuel Plata M.D. [id number] Calcium [Mass/Vol] 8.5 mg/dL Normal 8.4-10.2 [facility] Comment on above: Order Comment: [facility] has implemented the eGFR calculation approach that does not have a coefficient for race that conforms to the NKF-ASN Task Force Recommendations. Performed By: #### 4 [id number] #### [facility] [address] [place] [address] Emmanuel Plata M.D. [id number] Chloride [Moles/Vol] 107 mmol/L Normal 98-108 [facility] Comment on above: Order Comment: [facility] has implemented the eGFR calculation approach that does not have a coefficient for race that conforms to the NKF-ASN Task Force Recommendations. Performed By: #### 4 [id number] #### [facility] [address] [place] [address] Emmanuel Plata M.D. [id number] Creatinine [Mass/Vol] 0.97 mg/dL Normal 0.80-1.30 [facility] Comment on above: Order Comment: [facility] has implemented the eGFR calculation approach that does not have a coefficient for race that conforms to the NKF-ASN Task Force Recommendations. Performed By: #### 4 [id number] #### [facility] [address] [place] [address] Emmanuel Plata M.D. [id number] EGFR 76 mL/min/1.73 m2 Normal >=60 [facility] Comment on above: Order Comment: [facility] has implemented the eGFR calculation approach that does not have a coefficient for race that conforms to the NKF-ASN Task Force Recommendations. Result Comment: Maria Del Carmen mated GFR was calculated using the 2020 CKD-EPI creatinine equation. Performed By: #### 4 [id number] #### [facility] [address] [place] [address] Emmanuel Plata M.D. [id number] Glucose [Mass/Vol] 97 mg/dL Normal 65-99 [facility] Comment on above: Order Comment: [facility] has implemented the eGFR calculation approach that does not have a coefficient for race that conforms to the NKF-ASN Task Force Recommendations. Performed By: #### 4 [id number] #### [facility] [address] [place] [address]42 Emmanuel Plata M.D. [id number] HCO3 (Bld) [Moles/Vol] 22 mmol/L Normal 21-32 [facility] Comment on above: Order Comment: [facility] has implemented the eGFR calculation approach that does not have a coefficient for race that conforms to the NKF-ASN Task Force Recommendations. Performed By: #### 4 [id number] #### [facility] [address] [place] [address]84 Emmanuel Plata M.D. [id number] Potassium [Moles/Vol] 4.1 mmol/L Normal 3.5-5.1 [facility] Comment on above: Order Comment: [facility] has implemented the eGFR calculation approach that does not have a coefficient for race that conforms to the NKF-ASN Task Force Recommendations. Performed By: #### 4 [id number] #### [facility] [address] [place] [address]37 Emmanuel Plata M.D. [id number] Sodium [Moles/Vol] 139 mmol/L Normal 135-145 [facility] Comment on above: Order Comment: [facility] has implemented the eGFR calculation approach that does not have a coefficient for race that conforms to the NKF-ASN Task Force Recommendations. Performed By: #### 4 [id number] #### [facility] [address] [place] [address] Emmanuel Plata M.D. [id number] Urea nitrogen [Mass/Vol] 20 mg/dL Normal 8-25 [facility] Comment on above: Order Comment: [facility] has implemented the eGFR calculation approach that does not have a coefficient for race that conforms to the NKF-ASN Task Force Recommendations. Performed By: #### 4 [id number] #### [facility] [address] [place] [address]85 Emmanuel Plata M.D. [id number] Urea nitrogen/Creatinine [Mass ratio] 20.6 mg/mg High 10.0-20.0 [facility] Comment on above: Order Comment: [facility] has implemented the eGFR calculation approach that does not have a coefficient for race that conforms to the NKF-ASN Task Force Recommendations. Performed By: #### [id number] #### [facility] [address] [place] [address] 85468 Emmanuel Plata M.D. [id number] Basic metabolic 2000 panelon 03-20-2025 Anion gap [Moles/Vol] 14 mmol/L 10 - 2 0 mmol/L [facility] Calcium [Mass/Vol] 8.5 mg/dL 8.4 - 10. 2 mg/dL [facility] Chloride [Moles/Vol] 107 mmol/L 98 - 10 8 mmol/L [facility] Creatinine [Mass/Vol] 0.97 mg/dL 0.80 - 1.30 mg/dL [facility] GFR/1.73 sq M.predicted CKD-EPI (S/P/Bld) [Vol rate/Area] 76 - PINF [facility] Comment on above: Estimated GFR was ca lculated using the 2020 CKD-EPI creatinine equation. Glucose [Mass/Vol] 97 mg/dL 65 - 99 mg/dL [facility] HCO3 [Moles/Vol] 22 mmol/L 21 - 32 mmol/L [facility] Interpretation and review of laboratory results Abnormal [facility] Potassium [Moles/Vol] 4.1 mmol/L 3.5 - 5.1 mmol/L [facility] Sodium [Moles/Vol] 139 mmol/L 135 - 145 mmol/L [facility] Urea nitrogen [Mass/Vol] 20 mg/dL 8 - 25 mg/dL [facility] Urea nitrogen/Creatinine [Mass ratio] 20.6 mg/mg High 10.0 - 20.0 [facility] has implemented the eGFR calculation approach that does not have a coefficient for race that conforms to the NKF-ASN Task Force Recommendations. [facility] CBCon 03-20-2025 AUTO NRBC 0.0 % Normal [facility] Comment on above: Performed By: #### [id number] #### [facility] [address] [place] [address] 26781 Emmanuel Plata M.D. [id number] AUTO NRBC ABS COUNT 0.00 K/mcL Normal 0.00-0.00 [facility] Comment on above: Performed By: #### 4 [id number] #### [facility] [address] [place] [address] Emmanuel Plata M.D. [id number] Erythrocyte distribution width (RBC) [Ratio] 13.8 % Normal 11.6-14.8 [facility] Comment on above: Performed By: #### 4 [id number] #### [facility] [address] [place] [address] Emmanuel Plata M.D. [id number] Hematocrit (Bld) [Volume fraction] 29.1 % Low 41.0-53.0 [facility] Comment on above: Performed By: #### 4 [id number] #### [facility] [address] [place] [address] Emmanuel Plata M.D. [id number] Hemoglobin (Bld) [Mass/Vol] 10.0 g/dL Low 13.5-17.5 [facility] Comment on above: Performed By: #### 4 [id number] #### [facility] [address] [place] [address] Emmanuel Plata M.D. [id number] MCH (RBC) [Entitic mass] 33.3 pg Normal 26.0-34.0 [facility] Comment on above: Performed By: #### 4 [id number] #### [facility] [address] [place] [address] Emmanuel Plata M.D. [id number] MCV (RBC) [Entitic vol] 97.0 fL Normal 80.0-100.0 [facility] Comment on above: Performed By: #### 4 [id number] #### [facility] [address] [place] [address] Emmanuel Plata M.D. [id number] MEAN CORPUSCULAR HEMOGLOBIN CONC 34.4 g/dL Normal 31.0-37.0 [facility] Comment on above: Performed By: #### 4 [id number] #### [facility] [address] [place] [address]337 Emmanuel Plata M.D. [id number] Platelet mean volume (Bld) [Entitic vol] 9.8 fL Normal 9.4-12.4 [facility] Comment on above: Performed By: #### 4 [id number] #### [facility] [address] [place], [place] [address] Emmanuel Plata M.D. [id number] Platelets (Bld) [#/Vol] 167 10*3/uL Normal 150-400 [facility] Comment on above: Performed By: #### 4 [id number] #### [facility] [address] [place], [place] [address] Emmanuel Plata M.D. [id number] RBC (Bld) [#/Vol] 3.00 10*6/uL Low 4.50-5.90 [facility] Comment on above: Performed By: #### 4 [id number] #### [facility] [address] [place], [place] [address] Emmanuel Plata M.D. [id number] WBC (Bld) [#/Vol] 4.86 10*3/uL Normal 4.50-11.00 [facility] Comment on above: Performed By: #### 4 [id number] #### [facility] [address] [place] [id number] Emmanuel Plata M.D. [id number] CBC panel Auto (Bld)on 03-20 Erythrocyte distribution width (RBC) [Entitic vol] 13.8 % 11.6 - 14.8 % [facility] Hematocrit (Bld) [Volume fraction] 29.1 % Low 41.0 - 53.0 % [facility] Hemoglobin (Bld) [Mass/Vol] 10 g/dL Low 13.5 - 17.5 g/dL [facility] Interpretation and review of laboratory results Abnormal [facility] MCH (RBC) [Entitic mass] 33.3 pg 26.0 - 34.0 pg [facility] MCHC (RBC) [Mass/Vol] 34.4 g/dL 31.0 - 37.0 g/dL [facility] MCV (RBC) [Entitic vol] 97 fL 80.0 - 100.0 fL [facility] Nucleated RBC (Bld) [#/Vol] 0 10*3/uL [facility] Nucleated RBC/100 WBC (Bld) [Ratio] 0 % [facility] Platelet mean volume (Bld) [Entitic vol] 9.8 fL 9.4 - 12.4 fL [facility] Platelets (Bld) [#/Vol] 167 10*3/uL [facility] RBC (Bld) [#/Vol] 3 10*6/uL Low [facility] WBC (Bld) [#/Vol] 4.86 10*3/uL [facility] MAGNESIUM LEVELon 03-20-2025 Magnesium [Mass/Vol] 2.2 mg/dL Normal 1.6-2.4 [facility] Comment on above: Performed By: #### 4 [id number] #### [facility] [address] [place] [address] Emmanuel Plata M.D. [id number] Magnesiumon 03-20-2025 Magnesium [Mass/Vol] 2.2 mg/dL 1.6 - 2 .4 mg/dL [facility] Magnesium [Mass/Vol]on 03-20 Interpretation and review of laboratory results Normal [facility] No Panel Informationon 03-20 [facility] US ANKLE/BRACHIAL INDICES EX TREMITY LIMITEDon 03-20-2025 US ANKLE/BRACHIAL INDICES EXTREMITY LIMITED Patient Info Name: Tristin Powell Age: 85 years : 1940 Gender: Male Exam Date: 03/20/2025 8:42 AM Patient Status: INPATIENT Site Location: [facility] Indications I73.9 - Peripheral vascular disease, unspecified Procedure Description 89539 Limited bilateral noninvasive physiologic studies of upper or lower extremity arteries with bidirectional Doppler/PVR waveform analysis at 1-2 levels. Point Of Care Technician: Maggy Dempsey RVT Staff Ordering Physician: [...] Segmental BP RIGHT Brachial A mmH RIGHT COLLEGE OR UNIVERSITY REGISTRAR mmH RIGHT COLLEGE OR UNIVERSITY REGISTRAR Index: 0.53 RIGHT DPA mmH RIGHT DPA Index: 0.57 RIGHT Digit mmH RIGHT YAMILE Index: 0.57 RIGHT TBI Index: 0.00 LEFT COLLEGE OR UNIVERSITY REGISTRAR Index: 0.36 LEFT COLLEGE OR UNIVERSITY REGISTRAR mmH LEFT DPA Index: 0.41 LEFT DPA mmH LEFT YAMILE Index: 0.41 Doppler RIGHT COLLEGE OR UNIVERSITY REGISTRAR Waveform: Monophasic RIGHT DPA Waveform: Monophasic LEFT COLLEGE OR UNIVERSITY REGISTRAR Waveform: Monophasic LEFT DPA Waveform: Monophasic , PVR RIGHT Ankle Grade: Abnormal RIGHT Transmetarsal Grade: Abnormal RIGHT Digit (PPG) Grade: Absent LEFT Ankle Grade: Abnormal Prior Interventions 03/17/2025 right femoral and tibial bypass graft-. 03/17/2025 right femoral and tibial Report Signatures Finalized by Sylvia Meyer MD, RPVI, FSIR on 03/20/2025 09:40 AM [facility] ANKLE/BRACHIAL INDICES EXTREMITY LIMITED Patient Info Name: Tristin Powell Age: 85 years : 1940 Gender: Male Exam Date: 03/20/2025 8:42 AM Patient Status: INPATIENT Site Location: [facility] Indications I73.9 - Peripheral vascular disease, unspecified Procedure Description 89651 Limited bilateral noninvasive physiologic studies of upper or lower extremity arteries with bidirectional Doppler/PVR waveform analysis at 1-2 levels. Point Of Care Technician: Maggy Dempsey RVT Staff Ordering Physician: [...] Segmental BP RIGHT Brachial A mmH RIGHT COLLEGE OR UNIVERSITY REGISTRAR mmH RIGHT COLLEGE OR UNIVERSITY REGISTRAR Index: 0.53 RIGHT DPA mmH RIGHT DPA Index: 0.57 RIGHT Digit mmH RIGHT YAMILE Index: 0.57 RIGHT TBI Index: 0.00 LEFT COLLEGE OR UNIVERSITY REGISTRAR Index: 0.36 LEFT COLLEGE OR UNIVERSITY REGISTRAR mmH LEFT DPA Index: 0.41 LEFT DPA mmH LEFT YAMILE Index: 0.41 Doppler RIGHT COLLEGE OR UNIVERSITY REGISTRAR Waveform: Monophasic RIGHT DPA Waveform: Monophasic LEFT COLLEGE OR UNIVERSITY REGISTRAR Waveform: Monophasic LEFT DPA Waveform: Monophasic , [...] MonMar 20, 2025 9:40:58 AM EDT Normal [facility] US Doppler ankle/brachial in dexon 03-20-2025 Patient Info Name: Tristin Powell Age: 85 years : 1940 Gender: Male Exam Date: 03/20/2025 8:42 AM Patient Status: INPATIENT Site Location: [facility] Indications I73.9 - Peripheral vascular disease, unspecified Procedure Description [id number] Limited bilateral noninvasive physiologic studies of upper or lower extremity arteries with bidirectional Doppler/PVR waveform analysis at 1-2 levels. Point Of Care Technician: Maggy Dempsey Latricia Staff Ordering Physician: Beena Barraza Conclusions * [...] Segmental BP RIGHT Brachial A mmH RIGHT COLLEGE OR UNIVERSITY REGISTRAR mmH RIGHT COLLEGE OR UNIVERSITY REGISTRAR Index: 0.53 RIGHT DPA mmH RIGHT DPA Index: 0.57 RIGHT Digit mmH RIGHT YAMILE Index: 0.57 RIGHT TBI Index: 0.00 LEFT COLLEGE OR UNIVERSITY REGISTRAR Index: 0.36 LEFT COLLEGE OR UNIVERSITY REGISTRAR mmH LEFT DPA Index: 0.41 LEFT DPA mmH LEFT YAMILE Index: 0.41 Doppler RIGHT COLLEGE OR UNIVERSITY REGISTRAR Waveform: Monophasic RIGHT DPA Waveform: Monophasic LEFT COLLEGE OR UNIVERSITY REGISTRAR Waveform: Monophasic LEFT DPA Waveform: Monophasic , PVR RIGHT Ankle Grade: Abnormal RIGHT Transmetarsal Grade: Abnormal RIGHT Digit (PPG) Grade: Absent LEFT Ankle Grade: Abnormal Prior Interventions 03/17/2025 right femoral and tibial bypass graft-. 03/17/2025 right femoral and tibial Report Signatures Finalized by Sylvia Meyer MD, RPVI, FSIR on 03/20/2025 09:40 AM [facility] Sylvia Meyer MD - 03/20/2025 Patient Info Name: Tristin Powell Age: 85 years : 1940 Gender: Male Exam Date: 03/20/2025 8:42 AM Patient Status: INPATIENT Site Location: [facility] Indications I73.9 - Peripheral vascular disease, unspecified Procedure Description [id number] Limited bilateral noninvasive physiologic studies of upper or lower extremity arteries with bidirectional Doppler/PVR waveform analysis at 1-2 levels. Point Of Care Technician: Maggy Dempsey T Staff Ordering Physician: [...] Segmental BP RIGHT Brachial A mmH RIGHT COLLEGE OR UNIVERSITY REGISTRAR mmH RIGHT COLLEGE OR UNIVERSITY REGISTRAR Index: 0.53 RIGHT DPA mmH RIGHT DPA Index: 0.57 RIGHT Digit mmH RIGHT YAMILE Index: 0.57 RIGHT TBI Index: 0.00 LEFT COLLEGE OR UNIVERSITY REGISTRAR Index: 0.36 LEFT COLLEGE OR UNIVERSITY REGISTRAR mmH LEFT DPA Index: 0.41 LEFT DPA mmH LEFT YAMILE Index: 0.41 Doppler RIGHT COLLEGE OR UNIVERSITY REGISTRAR Waveform: Monophasic RIGHT DPA Waveform: Monophasic LEFT COLLEGE OR UNIVERSITY REGISTRAR Waveform: Monophasic LEFT DPA Waveform: Monophasic , PVR RIGHT Ankle Grade: Abnormal RIGHT Transmetarsal Grade: Abnormal RIGHT Digit (PPG) Grade: Absent LEFT Ankle Grade: Abnormal Prior Interventions 03/17/2025 right femoral and tibial bypass graft-. 03/17/2025 right femoral and tibial Report Signatures Finalized by Sylvia Meyer MD, RPVI, FSIR on 03/20/2025 09:40 AM [facility] BASIC METABOLIC PANELon 07- Anion gap [Moles/Vol] 13 mmol/L Normal 10-20 [facility] Comment on above: Order Comment: Thera peutic range for APTT's is 68 - 104 seconds Performed By: #### [id number] #### [facility] [address] [place] [address]1416 Emmanuel Plata M.D. [id number] Calcium [Mass/Vol] 9.0 mg/dL Normal 8.4-10.2 [facility] Comment on above: Order Comment: Thera peutic range for APTT's is 68 - 104 seconds Performed By: #### [id number] #### [facility] [address] [place] [address] 55886 Emmanuel Plata M.D. [id number] Chloride [Moles/Vol] 108 mmol/L Normal 98-108 [facility] Comment on above: Order Comment: Thera peutic range for APTT's is 68 - 104 seconds Performed By: #### 4 [id number] #### [facility] [address] [place], [place] [address] Emmanuel Plata M.D. [id number] Creatinine [Mass/Vol] 1.12 mg/dL Normal 0.80-1.30 [facility] Comment on above: Order Comment: Thera peutic range for APTT's is 68 - 104 seconds Performed By: #### 4 [id number] #### [facility] [address] [place], [place] [address] Emmanuel Plata M.D. [id number] EGFR 64 mL/min/1.73 m2 Normal >=60 [facility] Comment on above: Order Comment: Thera peutic range for APTT's is 68 - 104 seconds Result Comment: Maria Del Carmen mated GFR was calculated using the 2020 CKD-EPI creatinine equation. Performed By: #### 4 [id number] #### [facility] [address] [place], [place] [address] Emmanuel Plata M.D. [id number] Glucose [Mass/Vol] 109 mg/dL High 65-99 [facility] Comment on above: Order Comment: Thera peutic range for APTT's is 68 - 104 seconds Performed By: #### 4 [id number] #### [facility] [address] [place], [place] [address] Emmanuel Plata M.D. [id number] HCO3 (Bld) [Moles/Vol] 24 mmol/L Normal 21-32 [facility] Comment on above: Order Comment: Thera peutic range for APTT's is 68 - 104 seconds Performed By: #### 4 [id number] #### [facility] [address] [place], [place] [address] Emmanuel Plata M.D. [id number] Potassium [Moles/Vol] 5.0 mmol/L Normal 3.5-5.1 [facility] Comment on above: Order Comment: Thera peutic range for APTT's is 68 - 104 seconds Result Comment: Slig htly Hemolyzed Performed By: #### 4 [id number] #### [facility] [facility] [address] [place] [id number] Emmanuel Plata M.D. [id number] Sodium [Moles/Vol] 140 mmol/L Normal 135-145 [facility] Comment on above: Order Comment: Thera peutic range for APTT's is 68 - 104 seconds Performed By: #### 4 [id number] #### [facility] [address] [place] [address]0914 Emmanuel Plata M.D. [id number] Urea nitrogen [Mass/Vol] 22 mg/dL Normal 8-25 [facility] Comment on above: Order Comment: Thera peutic range for APTT's is 68 - 104 seconds Performed By: #### 4 [id number] #### [facility] [address] [place], [place] [address] Emmanuel Plata M.D. [id number] Urea nitrogen/Creatinine [Mass ratio] 19.6 mg/mg Normal 10.0-20.0 [facility] Comment on above: Order Comment: Thera peutic range for APTT's is 68 - 104 seconds Performed By: #### 4 [id number] #### [facility] [address] [place] [address] 78532 Emmanuel Plata M.D. [id number] Basic metabolic 2000 panelOr dered By: Larry Brady on 03-19-2025 Anion gap [Moles/Vol] 13 mmol/L 10 - 2 0 mmol/L [facility] Calcium [Mass/Vol] 9 mg/dL 8.4 - 10. 2 mg/dL [facility] Chloride [Moles/Vol] 108 mmol/L 98 - 10 8 mmol/L [facility] Creatinine [Mass/Vol] 1.12 mg/dL 0.80 - 1.30 mg/dL [facility] GFR/1.73 sq M.predicted CKD-EPI (S/P/Bld) [Vol rate/Area] 64 - PINF [facility] Comment on above: Estimated GFR was ca lculated using the 2020 CKD-EPI creatinine equation. Glucose [Mass/Vol] 109 mg/dL High 65 - 99 mg/dL [facility] HCO3 [Moles/Vol] 24 mmol/L 21 - 32 mmol/L [facility] Interpretation and review of laboratory results Abnormal [facility] Potassium [Moles/Vol] 5 mmol/L 3.5 - 5.1 mmol/L [facility] Comment on above: Slightly Hemolyzed Sodium [Moles/Vol] 140 mmol/L 135 - 145 mmol/L [facility] Urea nitrogen [Mass/Vol] 22 mg/dL 8 - 25 mg/dL [facility] Urea nitrogen/Creatinine [Mass ratio] 19.6 mg/mg 10.0 - 20.0 [facility] has implemented the eGFR calculation approach that does not have a coefficient for race that conforms to the NKF-ASN Task Force Recommendations. [facility] CBCon 03-19-2025 AUTO NRBC 0.0 % Normal [facility] Comment on above: Performed By: #### 4 [id number] #### [facility] [address] [place], [place] [address] Emmanuel Plata M.D. [id number] AUTO NRBC ABS COUNT 0.00 K/mcL Normal 0.00-0.00 [facility] Comment on above: Performed By: #### 4 [id number] #### [facility] [address] [place], [place] [address] Emmanuel Plata M.D. [id number] Erythrocyte distribution width (RBC) [Ratio] 14.5 % Normal 11.6-14.8 [facility] Comment on above: Performed By: #### 4 [id number] #### [facility] [address] [place], [place] [id number] Emmanuel Plata M.D. [id number] Hematocrit (Bld) [Volume fraction] 27.8 % Low 41.0-53.0 [facility] Comment on above: Performed By: #### 4 [id number] #### [facility] [address] [place], [place] [address] Emmanuel Plata M.D. [id number] Hemoglobin (Bld) [Mass/Vol] 10.4 g/dL Low 13.5-17.5 [facility] Comment on above: Performed By: #### 4 [id number] #### [facility] [address] [place] [address] Emmanuel Plata M.D. [id number] MCH (RBC) [Entitic mass] 36.1 pg High 26.0-34.0 [facility] Comment on above: Performed By: #### 4 [id number] #### [facility] [address] [place] [address] Emmanuel Plata M.D. [id number] MCV (RBC) [Entitic vol] 96.5 fL Normal 80.0-100.0 [facility] Comment on above: Performed By: #### 4 [id number] #### [facility] [address] [place], [place] [address] Emmanuel Plata M.D. [id number] MEAN CORPUSCULAR HEMOGLOBIN CONC 37.4 g/dL High 31.0-37.0 [facility] Comment on above: Performed By: #### 4 [id number] #### [facility] [address] [place], [place] [address]Nessa Plata M.D. [id number] Platelet mean volume (Bld) [Entitic vol] 9.6 fL Normal 9.4-12.4 [facility] Comment on above: Performed By: #### 4 [id number] #### [facility] [address] [place], [place] [address] Emmanuel Plata M.D. [id number] Platelets (Bld) [#/Vol] 148 10*3/uL Low 150-400 [facility] Comment on above: Performed By: #### 4 [id number] #### [facility] [address], [place] [address] Emmanuel Plata M.D. [id number] RBC (Bld) [#/Vol] 2.88 10*6/uL Low 4.50-5.90 [facility] Comment on above: Performed By: #### 4 [id number] #### [facility], [place] [address] Emmanuel Plata M.D. [id number] WBC (Bld) [#/Vol] 4.34 10*3/uL Low 4.50-11.00 [facility] Comment on above: Performed By: #### 4 [id number] #### [facility] [address] [place] [address] Emmanuel Plata M.D. [id number] CBC panel Auto (Bld)on 03-19 Erythrocyte distribution width (RBC) [Entitic vol] 14.5 % 11.6 - 14.8 % [facility] Hematocrit (Bld) [Volume fraction] 27.8 % Low 41.0 - 53.0 % [facility] Hemoglobin (Bld) [Mass/Vol] 10.4 g/dL Low 13.5 - 17.5 g/dL [facility] Interpretation and review of laboratory results Abnormal [facility] MCH (RBC) [Entitic mass] 36.1 pg High 26.0 - 34.0 pg [facility] MCHC (RBC) [Mass/Vol] 37.4 g/dL High 31.0 - 37.0 g/dL [facility] MCV (RBC) [Entitic vol] 96.5 fL 80.0 - 100.0 fL [facility] Nucleated RBC (Bld) [#/Vol] 0 10*3/uL [facility] Nucleated RBC/100 WBC (Bld) [Ratio] 0 % [facility] Platelet mean volume (Bld) [Entitic vol] 9.6 fL 9.4 - 12.4 fL [facility] Platelets (Bld) [#/Vol] 148 10*3/uL Low [facility] RBC (Bld) [#/Vol] 2.88 10*6/uL [facility] WBC (Bld) [#/Vol] 4.34 10*3/uL Low [facility] MAGNESIUM LEVELon 03-19-2025 Magnesium [Mass/Vol] 2.4 mg/dL Normal 1.6-2.4 [facility] Comment on above: Performed By: #### 4 [id number] #### [facility] [address] [place] [address] 100[address] Emmanuel Plata M.D. [id number] Magnesiumon 03-19-2025 Magnesium [Mass/Vol] 2.4 mg/dL 1.6 - 2 .4 mg/dL [facility] Magnesium [Mass/Vol]on 03-19 Interpretation and review of laboratory results Normal [facility] No Panel InformationOrdered By: Larry Brady on 03-19-2025 [facility] BASIC METABOLIC PANELon 02-26 Anion gap [Moles/Vol] 16 mmol/L Normal 10-20 [facility] Comment on above: Order Comment: [facility] has implemented the eGFR calculation approach that does not have a coefficient for race that conforms to the NKF-ASN Task Force Recommendations. Performed By: #### 4 [id number] #### [facility] [address] [place] [address]8319 Emmanuel Plata M.D. [id number] Calcium [Mass/Vol] 8.2 mg/dL Low 8.4-10.2 [facility] Comment on above: Order Comment: [facility] has implemented the eGFR calculation approach that does not have a coefficient for race that conforms to the NKF-ASN Task Force Recommendations. Performed By: #### 4 [id number] #### [facility] [address] [place] [address] 23587 Emmanuel Plata M.D. [id number] Chloride [Moles/Vol] 109 mmol/L High 98-108 [facility] Comment on above: Order Comment: [facility] has implemented the eGFR calculation approach that does not have a coefficient for race that conforms to the NKF-ASN Task Force Recommendations. Performed By: #### 4 [id number] #### [facility] [address] [place] [address] 84624 Emmanuel Plata M.D. [id number] Creatinine [Mass/Vol] 1.05 mg/dL Normal 0.80-1.30 [facility] Comment on above: Order Comment: [facility] has implemented the eGFR calculation approach that does not have a coefficient for race that conforms to the NKF-ASN Task Force Recommendations. Performed By: #### 4 [id number] #### [facility] [address] [place], [place] [address] Emmanuel Plata M.D. [id number] EGFR 69 mL/min/1.73 m2 Normal >=60 [facility] Comment on above: Order Comment: [facility] has implemented the eGFR calculation approach that does not have a coefficient for race that conforms to the NKF-ASN Task Force Recommendations. Result Comment: Maria Del Carmen mated GFR was calculated using the 2020 CKD-EPI creatinine equation. Performed By: #### 4 [id number] #### [facility] [address] [place] [address] 24494 Emmanuel Plata M.D. [id number] Glucose [Mass/Vol] 111 mg/dL High 65-99 [facility] Comment on above: Order Comment: [facility] has implemented the eGFR calculation approach that does not have a coefficient for race that conforms to the NKF-ASN Task Force Recommendations. Performed By: #### 4 [id number] #### [facility] [address] [place] [address] 36550 Emmanuel Plata M.D. [id number] HCO3 (Bld) [Moles/Vol] 19 mmol/L Low 21-32 [facility] Comment on above: Order Comment: [facility] has implemented the eGFR calculation approach that does not have a coefficient for race that conforms to the NKF-ASN Task Force Recommendations. Performed By: #### 4 [id number] #### [facility] [address] [place], [place] [address] Emmanuel Plata M.D. [id number] Potassium [Moles/Vol] 4.1 mmol/L Normal 3.5-5.1 [facility] Comment on above: Order Comment: [facility] has implemented the eGFR calculation approach that does not have a coefficient for race that conforms to the NKF-ASN Task Force Recommendations. Result Comment: Slig htly Hemolyzed Performed By: #### 4 [id number] #### [facility] [address] [place] [address]157 Emmanuel Plata M.D. [id number] Sodium [Moles/Vol] 140 mmol/L Normal 135-145 [facility] Comment on above: Order Comment: [facility] has implemented the eGFR calculation approach that does not have a coefficient for race that conforms to the NKF-ASN Task Force Recommendations. Performed By: #### 4 [id number] #### [facility] [address] [place] [address] 23560 Emmanuel Plata M.D. [id number] Urea nitrogen [Mass/Vol] 18 mg/dL Normal 8-25 [facility] Comment on above: Order Comment: [facility] has implemented the eGFR calculation approach that does not have a coefficient for race that conforms to the NKF-ASN Task Force Recommendations. Performed By: #### 4 [id number] #### [facility] [address] [place] [address] 24221 Emmanuel Plata M.D. [id number] Urea nitrogen/Creatinine [Mass ratio] 17.1 mg/mg Normal 10.0-20.0 [facility] Comment on above: Order Comment: [facility] has implemented the eGFR calculation approach that does not have a coefficient for race that conforms to the NKF-ASN Task Force Recommendations. Performed By: #### 4 [id number] #### [facility] [address] [place] [address] 55627 Emmanuel Plata M.D. [id number] Basic metabolic 2000 panelOr dered By: Fred Hameed on 03-18-2025 Anion gap [Moles/Vol] 16 mmol/L 10 - 2 0 mmol/L [facility] Calcium [Mass/Vol] 8.2 mg/dL Low 8.4 - 10. 2 mg/dL [facility] Chloride [Moles/Vol] 109 mmol/L High 98 - 10 8 mmol/L [facility] Creatinine [Mass/Vol] 1.05 mg/dL 0.80 - 1.30 mg/dL [facility] GFR/1.73 sq M.predicted CKD-EPI (S/P/Bld) [Vol rate/Area] 69 - PINF [facility] Comment on above: Estimated GFR was ca lculated using the 2020 CKD-EPI creatinine equation. Glucose [Mass/Vol] 111 mg/dL High 65 - 99 mg/dL [facility] HCO3 [Moles/Vol] 19 mmol/L Low 21 - 32 mmol/L [facility] Interpretation and review of laboratory results Abnormal [facility] Potassium [Moles/Vol] 4.1 mmol/L 3.5 - 5.1 mmol/L [facility] Comment on above: Slightly Hemolyzed Sodium [Moles/Vol] 140 mmol/L 135 - 145 mmol/L [facility] Urea nitrogen [Mass/Vol] 18 mg/dL 8 - 25 mg/dL [facility] Urea nitrogen/Creatinine [Mass ratio] 17.1 mg/mg 10.0 - 20.0 [facility] has implemented the eGFR calculation approach that does not have a coefficient for race that conforms to the NKF-ASN Task Force Recommendations. [facility] CBCon 03-18-2025 AUTO NRBC 0.0 % Normal [facility] Comment on above: Performed By: #### 4 [id number] #### [facility] [address] [place] [address] 84542 Emmanuel Plata M.D. [id number] AUTO NRBC ABS COUNT 0.00 K/mcL Normal 0.00-0.00 [facility] Comment on above: Performed By: #### 4 [id number] #### [facility] [address] [place] [address] 33903 Emmanuel Plata M.D. [id number] Erythrocyte distribution width (RBC) [Ratio] 13.3 % Normal 11.6-14.8 [facility] Comment on above: Performed By: #### 4 [id number] #### [facility] [address] [place], [place] [address] Emmanuel Plata M.D. [id number] Hematocrit (Bld) [Volume fraction] 28.9 % Low 41.0-53.0 [facility] Comment on above: Performed By: #### 4 [id number] #### [facility] [address] [place] [address] Emmanuel Plata M.D. [id number] Hemoglobin (Bld) [Mass/Vol] 10.5 g/dL Low 13.5-17.5 [facility] Comment on above: Performed By: #### 4 [id number] #### [facility] [address] [place] [address] Emmanuel Plata M.D. [id number] MCH (RBC) [Entitic mass] 34.3 pg High 26.0-34.0 [facility] Comment on above: Performed By: #### 4 [id number] #### [facility] [address] [place], [place] [address] Emmanuel Plata M.D. [id number] MCV (RBC) [Entitic vol] 94.4 fL Normal 80.0-100.0 [facility] Comment on above: Performed By: #### 4 [id number] #### [facility] [address] [place], [place] [address] Emmanuel Plata M.D. [id number] MEAN CORPUSCULAR HEMOGLOBIN CONC 36.3 g/dL Normal 31.0-37.0 [facility] Comment on above: Performed By: #### 4 [id number] #### [facility] [address] [place], [place] [address] Emmanuel Plata M.D. [id number] Platelet mean volume (Bld) [Entitic vol] 9.7 fL Normal 9.4-12.4 [facility] Comment on above: Performed By: #### 4 [id number] #### [facility] [address] [place] [address]19 Emmanuel Plata M.D. [id number] Platelets (Bld) [#/Vol] 157 10*3/uL Normal 150-400 [facility] Comment on above: Performed By: #### 4 [id number] #### [facility] [address] [place] [address] 50[address] Emmanuel Plata M.D. [id number] RBC (Bld) [#/Vol] 3.06 10*6/uL Low 4.50-5.90 [facility] Comment on above: Performed By: #### 4 [id number] #### [facility] [address] [place] [address] 47713 Emmanuel Plata M.D. [id number] WBC (Bld) [#/Vol] 5.05 10*3/uL Normal 4.50-11.00 [facility] Comment on above: Performed By: #### 4 [id number] #### [facility] [address] [place] [address] 61632 Emmanuel Plata M.D. [id number] CBC panel Auto (Bld)on 03-18 Erythrocyte distribution width (RBC) [Entitic vol] 13.3 % 11.6 - 14.8 % [facility] Hematocrit (Bld) [Volume fraction] 28.9 % Low 41.0 - 53.0 % [facility] Hemoglobin (Bld) [Mass/Vol] 10.5 g/dL Low 13.5 - 17.5 g/dL [facility] Interpretation and review of laboratory results Abnormal [facility] MCH (RBC) [Entitic mass] 34.3 pg High 26.0 - 34.0 pg [facility] MCHC (RBC) [Mass/Vol] 36.3 g/dL 31.0 - 37.0 g/dL [facility] MCV (RBC) [Entitic vol] 94.4 fL 80.0 - 100.0 fL [facility] Nucleated RBC (Bld) [#/Vol] 0 10*3/uL [facility] Nucleated RBC/100 WBC (Bld) [Ratio] 0 % [facility] Platelet mean volume (Bld) [Entitic vol] 9.7 fL 9.4 - 12.4 fL [facility] Platelets (Bld) [#/Vol] 157 10*3/uL [facility] RBC (Bld) [#/Vol] 3.06 10*6/uL [facility] W[facility] (Bld) [#/Vol] 5.05 10*3/uL [facility] MAGNESIUM LEVELon 03-18-2025 Magnesium [Mass/Vol] 2.1 mg/dL Normal 1.6-2.4 [facility] Comment on above: Performed By: #### 4 [id number] #### [facility] [address] [place] [address] Emmanuel Plata M.D. [id number] Magnesiumon 03-18-2025 Magnesium [Mass/Vol] 2.1 mg/dL 1.6 - 2 .4 mg/dL [facility] Magnesium [Mass/Vol]on 03-18 Interpretation and review of laboratory results Normal [facility] No Panel Informationon 03-18 [facility] US Lower extremity vein - ri [facility] 03-18-2025 Fluoroscopy used for intraoperative angiogram. Refer to the operative report for details. [employer] Workstation ID: [id number] [employer] EXAMINATION: XR OR ANGIO LOWER EXTREMITY RIGHT [...] in Ka,r mGy: 7.18. FINDINGS: See impression. Chicory Sylvia Mora MD - 03/18/2025 EXAMINATION: XR [...] report for details. JKM/pji Workstation ID: [id number] [facility] Lower extremity vein - ri ghtOrdered By: Sylvia Meyer on 03-18-2025 [facility] Work Phone: APTT HEPARIN COVERAGEon 02-26 aPTT Coag (Bld) [Time] 92 s High 23-34 [facility] Comment on above: Order Comment: Thera peutic range for APTT's is 68 - 104 seconds Performed By: #### [id number] #### [facility] [address] [place] [address] 17115 Emmanuel Plata M.D. [id number] APTT Heparin Coverageon 02-26 aPTT Coag (Bld) [Time] 92 s High [facility] Interpretation and review of laboratory results Abnormal [facility] Therapeutic range fo r APTT's is 68 - 104 seconds [facility] BASIC METABOLIC PANELon 02-26 Anion gap [Moles/Vol] 12 mmol/L Normal 10-20 [facility] Comment on above: Order Comment: [facility] has implemented the eGFR calculation approach that does not have a coefficient for race that conforms to the NKF-ASN Task Force Recommendations. Performed By: #### [id number] #### [facility] [address] [place] [address] 72419 Emmanuel Plata M.D. [id number] Calcium [Mass/Vol] 8.5 mg/dL Normal 8.4-10.2 [facility] Comment on above: Order Comment: [facility] has implemented the eGFR calculation approach that does not have a coefficient for race that conforms to the NKF-ASN Task Force Recommendations. Performed By: #### 4 [id number] #### [facility] [address] [place] [address] 91582 Emmanuel Plata M.D. [id number] Chloride [Moles/Vol] 106 mmol/L Normal 98-108 [facility] Comment on above: Order Comment: [facility] has implemented the eGFR calculation approach that does not have a coefficient for race that conforms to the NKF-ASN Task Force Recommendations. Performed By: #### 4 [id number] #### [facility] [address] [place] [address] 29133 Emmanuel Plata M.D. [id number] Creatinine [Mass/Vol] 1.05 mg/dL Normal 0.80-1.30 [facility] Comment on above: Order Comment: [facility] has implemented the eGFR calculation approach that does not have a coefficient for race that conforms to the NKF-ASN Task Force Recommendations. Performed By: #### 4 [id number] #### [facility] [address] [place] [address] 45004 Emmanuel Plata M.D. [id number] EGFR 69 mL/min/1.73 m2 Normal >=60 [facility] Comment on above: Order Comment: [facility] has implemented the eGFR calculation approach that does not have a coefficient for race that conforms to the NKF-ASN Task Force Recommendations. Result Comment: Maria Del Carmen mated GFR was calculated using the 2020 CKD-EPI creatinine equation. Performed By: #### [id number] #### [facility] [address] [place] [address] 37126 Emmanuel Plata M.D. [id number] Glucose [Mass/Vol] 90 mg/dL Normal 65-99 [facility] Comment on above: Order Comment: [facility] Services has implemented the eGFR calculation approach that does not have a coefficient for race that conforms to the NKF-ASN Task Force Recommendations. Performed By: #### 4 [id number] #### [facility] [address] [place] [address] 62951 Emmanuel Plata M.D. [id number] HCO3 (Bld) [Moles/Vol] 24 mmol/L Normal 21-32 [facility] Comment on above: Order Comment: [facility] Services has implemented the eGFR calculation approach that does not have a coefficient for race that conforms to the NKF-ASN Task Force Recommendations. Performed By: #### 4 [id number] #### [facility] [address] [place] [address] 65795 Emmanuel Plata M.D. [id number] Potassium [Moles/Vol] 4.1 mmol/L Normal 3.5-5.1 [facility] Comment on above: Order Comment: [facility] Services has implemented the eGFR calculation approach that does not have a coefficient for race that conforms to the NKF-ASN Task Force Recommendations. Performed By: #### 4 [id number] #### [facility] [address] [place] [address] 84029 Emmanuel Plata M.D. [id number] Sodium [Moles/Vol] 138 mmol/L Normal 135-145 [facility] Comment on above: Order Comment: [facility] has implemented the eGFR calculation approach that does not have a coefficient for race that conforms to the NKF-ASN Task Force Recommendations. Performed By: #### 4 [id number] #### [facility] [address] [place] [address] 45118 Emmanuel Plata M.D. [id number] Urea nitrogen [Mass/Vol] 16 mg/dL Normal 8-25 [facility] Comment on above: Order Comment: [facility] Services has implemented the eGFR calculation approach that does not have a coefficient for race that conforms to the NKF-ASN Task Force Recommendations. Performed By: #### 4 [id number] #### [facility] [address] [place] [address] 56396 Emmanuel Plata M.D. [id number] Urea nitrogen/Creatinine [Mass ratio] 15.2 mg/mg Normal 10.0-20.0 [facility] Comment on above: Order Comment: [facility] Services has implemented the eGFR calculation approach that does not have a coefficient for race that conforms to the NKF-ASN Task Force Recommendations. Performed By: #### 4 [id number] #### [facility] [address] [place] [address] 17821 Emmanuel Plata M.D. [id number] Basic metabolic 2000 panelon 03-17-2025 Anion gap [Moles/Vol] 12 mmol/L 10 - 2 0 mmol/L [facility] Calcium [Mass/Vol] 8.5 mg/dL 8.4 - 10. 2 mg/dL [facility] Chloride [Moles/Vol] 106 mmol/L 98 - 10 8 mmol/L [facility] Creatinine [Mass/Vol] 1.05 mg/dL 0.80 - 1.30 mg/dL [facility] GFR/1.73 sq M.predicted CKD-EPI (S/P/Bld) [Vol rate/Area] 69 - PINF [facility] Comment on above: Estimated GFR was ca lculated using the 2020 CKD-EPI creatinine equation. Glucose [Mass/Vol] 90 mg/dL 65 - 99 mg/dL [facility] HCO3 [Moles/Vol] 24 mmol/L 21 - 32 mmol/L [facility] Potassium [Moles/Vol] 4.1 mmol/L 3.5 - 5.1 mmol/L [facility] Sodium [Moles/Vol] 138 mmol/L 135 - 145 mmol/L [facility] Urea nitrogen [Mass/Vol] 16 mg/dL 8 - 25 mg/dL [facility] Urea nitrogen/Creatinine [Mass ratio] 15.2 mg/mg 10.0 - 20.0 [facility] Services has implemented the eGFR calculation approach that does not have a coefficient for race that conforms to the NKF-ASN Task Force Recommendations. [facility] CBCon 03-17-2025 AUTO NRBC 0.0 % Normal [facility] Comment on above: Performed By: #### 4 [id number] #### [facility] [address] [place] [address] 95700 Emmanuel Plata M.D. [id number] AUTO NRBC ABS COUNT 0.00 K/mcL Normal 0.00-0.00 [facility] Comment on above: Performed By: #### 4 6231 #### [facility] [address] [place], [place] [address] Emmanuel Plata M.D. [id number] Erythrocyte distribution width (RBC) [Ratio] 13.2 % Normal 11.6-14.8 [facility] Comment on above: Performed By: #### 4 5911 #### [facility] [address] [place] [address] Emmanuel Plata M.D. [id number] Hematocrit (Bld) [Volume fraction] 33.1 % Low 41.0-53.0 [facility] Comment on above: Result Comment: Repe ated AND verified Performed By: #### 4 7342 #### [facility] [address] [place], [place] [address] Emmanuel Plata M.D. [id number] Hemoglobin (Bld) [Mass/Vol] 11.0 g/dL Low 13.5-17.5 [facility] Comment on above: Performed By: #### 4 9519 #### [facility] [address] [place], [place] [address] Emmanuel Plata M.D. [id number] MCH (RBC) [Entitic mass] 29.8 pg Normal 26.0-34.0 [facility] Comment on above: Performed By: #### 5 [id number] #### [facility] [address] [place], [place] [address] Emmanuel Plata M.D. [id number] MCV (RBC) [Entitic vol] 89.7 fL Normal 80.0-100.0 [facility] Comment on above: Performed By: #### 7 9936 #### [facility] [address], [place] [address] Emmanuel Plata M.D. [id number] MEAN CORPUSCULAR HEMOGLOBIN CONC 33.2 g/dL Normal 31.0-37.0 [facility] Comment on above: Result Comment: Cold Agglutinin present Performed By: #### 4 [id number] #### [facility] [address] [place], [place] [address] Emmanuel Plata M.D. [id number] Platelet mean volume (Bld) [Entitic vol] 10.2 fL Normal 9.4-12.4 [facility] Comment on above: Performed By: #### 4 [id number] #### [facility] [address] [place], [place] [address]Nessa Plata M.D. [id number] Platelets (Bld) [#/Vol] 153 10*3/uL Normal 150-400 [facility] Comment on above: Performed By: #### 4 [id number] #### [facility] [address] [place], [place] [address]Nessa Plata M.D. [id number] RBC (Bld) [#/Vol] 3.69 10*6/uL Low 4.50-5.90 [facility] Comment on above: Performed By: #### 4 [id number] #### [facility] [address] [place], [place] [address]Nessa Plata M.D. [id number] WBC (Bld) [#/Vol] 3.29 10*3/uL Low 4.50-11.00 [facility] Comment on above: Performed By: #### 4 2393 #### [facility] [address] [place] [address] 62298Nessa Plata M.D. [id number] CBC panel Auto (Bld)on 03-17 Erythrocyte distribution width (RBC) [Entitic vol] 13.2 % 11.6 - 14.8 % [facility] Hematocrit (Bld) [Volume fraction] 33.1 % Low 41.0 - 53.0 % [facility] Comment on above: Repeated & verified Hemoglobin (Bld) [Mass/Vol] 11 g/dL Low 13.5 - 17.5 g/dL [facility] Interpretation and review of laboratory results Abnormal [facility] MCH (RBC) [Entitic mass] 29.8 pg 26.0 - 34.0 pg [facility] MCHC (RBC) [Mass/Vol] 33.2 g/dL 31.0 - 37.0 g/dL [facility] Comment on above: Cold Agglutinin pres ent MCV (RBC) [Entitic vol] 89.7 fL 80.0 - 100.0 fL [facility] Nucleated RBC (Bld) [#/Vol] 0 10*3/uL [facility] Nucleated RBC/100 WBC (Bld) [Ratio] 0 % [facility] Platelet mean volume (Bld) [Entitic vol] 10.2 fL 9.4 - 12.4 fL [facility] Platelets (Bld) [#/Vol] 153 10*3/uL [facility] RBC (Bld) [#/Vol] 3.69 10*6/uL [facility] W[facility] (Bld) [#/Vol] 3.29 10*3/uL [facility] e[facility] ECG 12 Leadon 03-17-2025 Atrial Rate 63 BPM [facility] P [place] 86 degrees [facility] P-R Interval 208 ms [facility] Q-T Interval 454 ms [facility] QRS Duration 102 ms [facility] QTC Calculation (Bezet) 464 ms [facility] R [place] 45 degrees [facility] T [place] 44 degrees [facility] Ventricular Rate 63 BPM [facility] Sinus rhythm with Premature supraventricular complexes Otherwise normal ECG Confirmed by MARY CARLTON ([id number]) on 03/17/2025 7:58:31 AM MUSE [facility] Glucose (Bld) [Mass/Vol]on 0 03-17-2025 Glucose [Mass/Vol] 105 mg/dL High 65 - 99 mg/dL [facility] Interpretation and review of laboratory results Abnormal [facility] HEMOGLOBIN AND HEMATOCRITon 03-17-2025 Hematocrit (Bld) [Volume fraction] 30.5 % Low 41.0-53.0 [facility] Comment on above: Performed By: #### 4 1689 #### [facility] [address] [place] [address] 76374 Emmanuel Plata M.D. [id number] Hemoglobin (Bld) [Mass/Vol] 11.2 g/dL Low 13.5-17.5 [facility] Comment on above: Performed By: #### 4 [id number] #### [facility] [address] [place] [address] 55832 Emmanuel Plata M.D. [id number] Hemoglobin and Hematocrit [facility] (Bld)on 03-17-2025 Hematocrit (Bld) [Volume fraction] 30.5 % Low 41.0 - 53.0 % [facility] Hemoglobin (Bld) [Mass/Vol] 11.2 g/dL Low 13.5 - 17.5 g/dL [facility] Interpretation and review of laboratory results Abnormal [facility] MAGNESIUM LEVELon 03-17-2025 Magnesium [Mass/Vol] 2.1 mg/dL Normal 1.6-2.4 [facility] Comment on above: Performed By: #### 4 [id number] #### [facility] [address] [place] [address] 66501 Emmanuel Plata M.D. [id number] Magnesiumon 03-17-2025 Magnesium [Mass/Vol] 2.1 mg/dL 1.6 - 2 .4 mg/dL [facility] No Panel Informationon 03-17 Interpretation and review of laboratory results Normal [facility] OP NOTEon 03-17-2025 OP NOTE TRISTIN POWELL [id number] N [id number] 1940 DATE 03/17/2025 OPERATIVE REPORT SURGEON MOHSEN SARABIA MD [place] SUR[employer] FAUSTINA OROZCO, RESIDENT PREOPERATIVE DIAGNOSIS Chronic limb-threatening [...] did elect to shoot an angiogram. A 23-Ugandan butterfly needle was used to puncture the [...] cc. MOHSEN SARABIA MD D 03/17/2025 16:58 [id number] T 03/17/2025 23:17 JPW/MODL AUTHENTICATED BY MOHSEN SARABIA, ON 03/24/2025 10:13:39 Normal [facility] POC GLUCOSE - Juliet 025 Glucose [Mass/Vol] 105 mg/dL High 65-99 [facility] Comment on above: Performed By: #### 4 6932 #### H POCT LAB [facility] [place] [address] [id number] [facility] Lower extremity vein - formerly [facility] 03-17-2025 Radiology Study observation (narrative) [facility] XR OR ANGIO LOWER EXTREMITY RIGHTon 03-17-2025 [...] None. TECHNIQUE: RADIATION EXPOSURE: Fluoro dose in Machor mGy: 7.18. FINDINGS: See impression. IMPRESSION: Fluoroscopy used for intraoperative angiogram. Refer to the operative report for details. JArchy/pji Workstation ID: [id number] Dictated by: Sylvia MEYER on MonMar 18, 2025 7:54:33 AM EDT Transcribed by: ZENA NEGRETE on MonMar 18, 2025 8:58:15 AM EDT Finalized by: Sylvia MEYER on MonMar 18, 2025 10:04:09 AM EDT Normal [facility] Comment on above: Order Comment: Injur y/Trauma or Illness?:Illness/Other How long have you had these symptoms (acute/chronic)?:Acute Reason for exam?:rt leg bypass Type of Exam?:Unknown Additional signs and symptoms?:sx Fluoro time in minutes:1.3 Fluoro dose in mGy?:7.18 APTT HEPARIN COVERAGEon 07-2 aPTT Coag (Bld) [Time] 85 s High 23-34 [facility] Comment on above: Order Comment: Thera peutic range for APTT's is 68 - 104 seconds Performed By: #### 4 [id number] #### [facility] [address] [place] [address] Emmanuel Plata M.D. [id number] aPTT Coag (Bld) [Time] 90 s High 23-34 [facility] Comment on above: Order Comment: Thera peutic range for APTT's is 68 - 104 seconds Performed By: #### 4 [id number] #### [facility] [address] [place], [place] [address] Emmanuel Plata M.D. [id number] aPTT Coag (Bld) [Time] 91 s High 23-34 [facility] Comment on above: Order Comment: Thera peutic range for APTT's is 68 - 104 seconds Performed By: #### 4 [id number] #### [facility] [address] [place] [address] 58145 Emmanuel Plata M.D. [id number] APTT Heparin CoverageOrdered By: Remigio Hernandez on 03-16-2025 aPTT Coag (Bld) [Time] 85 s High [facility] Interpretation and review of laboratory results Abnormal [facility] Therapeutic range fo r APTT's is 68 - 104 seconds [facility] APTT Heparin CoverageOrdered By: Flory Pino on 03-16-2025 aPTT Coag (Bld) [Time] 90 s High [facility] Therapeutic range fo r APTT's is 68 - 104 seconds [facility] APTT Heparin CoverageOrdered By: Deena Escoto on 03-16-2025 aPTT Coag (Bld) [Time] 91 s High [facility] Interpretation and review of laboratory results Abnormal [facility] Therapeutic range fo r APTT's is 68 - 104 seconds [facility] BASIC METABOLIC PANELon 07-2 Anion gap [Moles/Vol] 15 mmol/L Normal 10-20 [facility] Comment on above: Order Comment: [facility] Services has implemented the eGFR calculation approach that does not have a coefficient for race that conforms to the NKF-ASN Task Force Recommendations. Performed By: #### 4 [id number] #### [facility] [address] [place] [address] 07953 Emmanuel Plata M.D. [id number] Calcium [Mass/Vol] 9.0 mg/dL Normal 8.4-10.2 [facility] Comment on above: Order Comment: [facility] Services has implemented the eGFR calculation approach that does not have a coefficient for race that conforms to the NKF-ASN Task Force Recommendations. Performed By: #### 4 [id number] #### [facility] [address] [place] [address] 83652 Emmanuel Plata M.D. [id number] Chloride [Moles/Vol] 106 mmol/L Normal 98-108 [facility] Comment on above: Order Comment: [facility] Services has implemented the eGFR calculation approach that does not have a coefficient for race that conforms to the NKF-ASN Task Force Recommendations. Performed By: #### 4 [id number] #### [facility] [address] [place] [address] 40259 Emmanuel Plata M.D. [id number] Creatinine [Mass/Vol] 1.11 mg/dL Normal 0.80-1.30 [facility] Comment on above: Order Comment: [facility] Services has implemented the eGFR calculation approach that does not have a coefficient for race that conforms to the NKF-ASN Task Force Recommendations. Performed By: #### 4 [id number] #### [facility] [address] [place], [place] [address] Emmanuel Plata M.D. [id number] EGFR 65 mL/min/1.73 m2 Normal >=60 [facility] Comment on above: Order Comment: [facility] Services has implemented the eGFR calculation approach that does not have a coefficient for race that conforms to the NKF-ASN Task Force Recommendations. Result Comment: Maria Del Carmen mated GFR was calculated using the 2020 CKD-EPI creatinine equation. Performed By: #### 4 [id number] #### [facility] [address] [place] [address] 62194 Emmanuel Plata M.D. [id number] Glucose [Mass/Vol] 105 mg/dL High 65-99 [facility] Comment on above: Order Comment: [facility] Services has implemented the eGFR calculation approach that does not have a coefficient for race that conforms to the NKF-ASN Task Force Recommendations. Performed By: #### 4 [id number] #### [facility] [address] [place] [address]1948 Emmanuel Plata M.D. [id number] HCO3 (Bld) [Moles/Vol] 24 mmol/L Normal 21-32 [facility] Comment on above: Order Comment: [facility] has implemented the eGFR calculation approach that does not have a coefficient for race that conforms to the NKF-ASN Task Force Recommendations. Performed By: #### 4 [id number] #### [facility] [address] [place] [address] 87796 Emmanuel Plata M.D. [id number] Potassium [Moles/Vol] 4.3 mmol/L Normal 3.5-5.1 [facility] Comment on above: Order Comment: [facility] has implemented the eGFR calculation approach that does not have a coefficient for race that conforms to the NKF-ASN Task Force Recommendations. Performed By: #### 4 [id number] #### [facility] [address] [place] [address] 64910 Emmanuel Plata M.D. [id number] Sodium [Moles/Vol] 141 mmol/L Normal 135-145 [facility] Comment on above: Order Comment: [facility] has implemented the eGFR calculation approach that does not have a coefficient for race that conforms to the NKF-ASN Task Force Recommendations. Performed By: #### 4 [id number] #### [facility] [address] [place] [address] 22828 Emmanuel Plata M.D. [id number] Urea nitrogen [Mass/Vol] 20 mg/dL Normal 8-25 [facility] Comment on above: Order Comment: [facility] has implemented the eGFR calculation approach that does not have a coefficient for race that conforms to the NKF-ASN Task Force Recommendations. Performed By: #### 4 [id number] #### [facility] [address] [place] [address] 50797 Emmanuel Plata M.D. [id number] Urea nitrogen/Creatinine [Mass ratio] 18.0 mg/mg Normal 10.0-20.0 [facility] Comment on above: Order Comment: [facility] has implemented the eGFR calculation approach that does not have a coefficient for race that conforms to the NKF-ASN Task Force Recommendations. Performed By: #### 4 [id number] #### [facility] [address] [place] [address] 58993 Emmanuel Plata M.D. [id number] Basic metabolic 2000 panelon 03-16-2025 Anion gap [Moles/Vol] 15 mmol/L 10 - 2 0 mmol/L [facility] Calcium [Mass/Vol] 9 mg/dL 8.4 - 10. 2 mg/dL [facility] Chloride [Moles/Vol] 106 mmol/L 98 - 10 8 mmol/L [facility] Creatinine [Mass/Vol] 1.11 mg/dL 0.80 - 1.30 mg/dL [facility] GFR/1.73 sq M.predicted CKD-EPI (S/P/Bld) [Vol rate/Area] 65 - PINF [facility] Comment on above: Estimated GFR was ca lculated using the 2020 CKD-EPI creatinine equation. Glucose [Mass/Vol] 105 mg/dL High 65 - 99 mg/dL [facility] HCO3 [Moles/Vol] 24 mmol/L 21 - 32 mmol/L [facility] Interpretation and review of laboratory results Abnormal [facility] Potassium [Moles/Vol] 4.3 mmol/L 3.5 - 5.1 mmol/L [facility] Sodium [Moles/Vol] 141 mmol/L 135 - 145 mmol/L [facility] Urea nitrogen [Mass/Vol] 20 mg/dL 8 - 25 mg/dL [facility] Urea nitrogen/Creatinine [Mass ratio] 18 mg/mg 10.0 - 20.0 [facility] Services has implemented the eGFR calculation approach that does not have a coefficient for race that conforms to the NKF-ASN Task Force Recommendations. [facility] Blood type and Indirect anti body screen panel (Bld)on 03-16-2025 ABO and Rh group Nom (Bld) Blood group O Rh(D) positive [facility] Blood group antibody screen Ql Negative [facility] Specimen Expires 03/19/2025 23:59 EST [facility] CBCon 03-16-2025 AUTO NRBC 0.0 % Normal [facility] Comment on above: Performed By: #### 4 [id number] #### [facility] [address] [place] [address]1505 Emmanuel Plata M.D. [id number] AUTO NRBC ABS COUNT 0.00 K/mcL Normal 0.00-0.00 [facility] Comment on above: Performed By: #### 4 2638 #### [facility] [address] [place], [place] [address] Emmanuel Plata M.D. [id number] Erythrocyte distribution width (RBC) [Ratio] 13.3 % Normal 11.6-14.8 [facility] Comment on above: Performed By: #### 4 5925 #### [facility] [address] [place] [address] Emmanuel Plata M.D. [id number] Hematocrit (Bld) [Volume fraction] 36.7 % Low 41.0-53.0 [facility] Comment on above: Performed By: #### 4 8514 #### [facility] [address] [place] [address] Emmanuel Plata M.D. [id number] Hemoglobin (Bld) [Mass/Vol] 12.0 g/dL Low 13.5-17.5 [facility] Comment on above: Performed By: #### 4 7540 #### [facility] [address] [place], [place] [address] Emmanuel Plata M.D. [id number] MCH (RBC) [Entitic mass] 29.9 pg Normal 26.0-34.0 [facility] Comment on above: Performed By: #### 4 8173 #### [facility] [address] [place], [place] [address] Emmanuel Plata M.D. [id number] MCV (RBC) [Entitic vol] 91.3 fL Normal 80.0-100.0 [facility] Comment on above: Performed By: #### 4 [id number] #### [facility] [address] [place] [address] Emmanuel Plata M.D. [id number] MEAN CORPUSCULAR HEMOGLOBIN CONC 32.7 g/dL Normal 31.0-37.0 [facility] Comment on above: Performed By: #### 4 [id number] #### [facility] [address] [place], [place] [id number] Emmanuel Plata M.D. [id number] Platelet mean volume (Bld) [Entitic vol] 10.1 fL Normal 9.4-12.4 [facility] Comment on above: Performed By: #### 4 [id number] #### [facility] [address] [place] [address] Emmanuel Plata M.D. [id number] Platelets (Bld) [#/Vol] 159 10*3/uL Normal 150-400 [facility] Comment on above: Performed By: #### 4 [id number] #### [facility] [address] [place], [place] [id number] Emmanuel Plata M.D. [id number] RBC (Bld) [#/Vol] 4.02 10*6/uL Low 4.50-5.90 [facility] Comment on above: Performed By: #### 4 [id number] #### [facility] [address] [place], [place] [id number] Emmanuel Plata M.D. [id number] WBC (Bld) [#/Vol] 4.27 10*3/uL Low 4.50-11.00 [facility] Comment on above: Performed By: #### 4 [id number] #### [facility] [address] [place] [address] Emmanuel Plata M.D. [id number] CBC panel Auto (Bld)on 03-16 Erythrocyte distribution width (RBC) [Entitic vol] 13.3 % 11.6 - 14.8 % [facility] Hematocrit (Bld) [Volume fraction] 36.7 % Low 41.0 - 53.0 % [facility] Hemoglobin (Bld) [Mass/Vol] 12 g/dL Low 13.5 - 17.5 g/dL [facility] Interpretation and review of laboratory results Abnormal [facility] MCH (RBC) [Entitic mass] 29.9 pg 26.0 - 34.0 pg [facility] MCHC (RBC) [Mass/Vol] 32.7 g/dL 31.0 - 37.0 g/dL [facility] MCV (RBC) [Entitic vol] 91.3 fL 80.0 - 100.0 fL [facility] Nucleated RBC (Bld) [#/Vol] 0 10*3/uL [facility] Nucleated RBC/100 WBC (Bld) [Ratio] 0 % [facility] Platelet mean volume (Bld) [Entitic vol] 10.1 fL 9.4 - 12.4 fL [facility] Platelets (Bld) [#/Vol] 159 10*3/uL [facility] RBC (Bld) [#/Vol] 4.02 10*6/uL [facility] (Bld) [#/Vol] 4.27 10*3/uL [facility] eah [facility] INR Coag (PPP) [Relative abi e]on 03-16-2025 PT Coag (PPP) [Time] 14.7 [facility] During the induction phase of oral anticoagulation, the INR may not reflect the anticoagulation status of the patient. Therapeutic ranges for INR's are: Most clinical situations: INR 2.0-3.0 Mechanical Prosthetic Valve: INR 2.5-3.5 Critical: INR >5.0 [facility] MAGNESIUM LEVELon 03-16-2025 Magnesium [Mass/Vol] 2.3 mg/dL Normal 1.6-2.4 [facility] Comment on above: Performed By: #### 4 [id number] #### [facility] [address] [place] [address] Emmanuel Plata M.D. [id number] Magnesiumon 03-16-2025 Magnesium [Mass/Vol] 2.3 mg/dL 1.6 - 2 .4 mg/dL [facility] Magnesium [Mass/Vol]on 03-16 Interpretation and review of laboratory results Normal [facility] No Panel InformationOrdered By: Flory Pino on 03-16-2025 Interpretation and review of laboratory results Abnormal [facility] No Panel Informationon 03-16 [facility] PT/INRon 03-16-2025 INR Coag (PPP) [Relative time] 1.1 {INR} 0.8 - 1.1 [facility] INR Coag (PPP) [Relative time] 1.1 {INR} Normal 0.8-1.1 [facility] Comment on above: Order Comment: Rafita denise the induction phase of oral anticoagulation, the INR may not reflect the anticoagulation status of the patient. Therapeutic ranges for INR's are:Most clinical situations: INR 2.0-3.0Mechanical Prosthetic Valve: INR 2.5-3.5Critical: INR >5.0 Performed By: #### 4 [id number] ####[facility] [address] [place] [address] Emmanuel Plata M.D. [id number] PT Coag (PPP) [Time] 14.7 s High 11.8-14.3 [facility] Comment on above: Order Comment: Rafita denise the induction phase of oral anticoagulation, the INR may not reflect the anticoagulation status of the patient. Therapeutic ranges for INR's are:Most clinical situations: INR 2.0-3.0Mechanical Prosthetic Valve: INR 2.5-3.5Critical: INR >5.0 Performed By: #### 4 6391 ####[facility] [address] [place], [place] [address] Emmanuel Plata M.D. [id number] TYPE AND SCREENon 03-16-2025 TYPE AND SCREEN ABORH: O Positive AB SCREEN: Negative EXPIRATION DATE: 03/19/2025 23:59 EST Normal [facility] Comment on above: Performed By: #### 4 6109 #### [facility] [address] [place] [address] Emmanuel Plata M.D. [id number] US SAPHENOUS VEIN MAPon 02-26 US SAPHENOUS VEIN MAP Patient Info Name: Tristin Powell Age: 85 years : 1940 Gender: Male Exam Date: 03/14/2025 9:26 PM Patient Status: INPATIENT Site Location: [facility] Indications Z01.810 - Encounter for preprocedural cardiovascular examination Procedure Description 30990 Duplex examination using B-mode, color and spectral Doppler of extremity veins including responses to compression and other maneuvers; complete bilateral study. Point Of Care Technician: Cristian Ellis RVT, [facility] Staff Ordering Physician: Beena Barraza [...] Hein MD, RPVI on 03/16/2025 11:15 AM [facility] UE VEIN MAPon 03-16-2025 UE VEIN MAP Patient Info Name: Tristin Powell Age: 85 years : 1940 Gender: Male Exam Date: 03/14/2025 9:20 PM Patient Status: INPATIENT Site Location: [facility] Indications Z01.810 - Encounter for preprocedural cardiovascular examination Procedure Description 68631 Duplex examination using B-mode, color and spectral Doppler of extremity veins including responses to compression and other maneuvers; complete bilateral study. Point Of Care Technician: Cristian Ellis RVT, [facility] Staff Ordering Physician: Beena Barraza [...] Hein MD, RPVI on 03/16/2025 11:[address] [facility] Patient Info Name: Tristin Powell Age: 85 years : 1940 Gender: Male Exam Date: 03/14/2025 9:26 PM Patient Status: INPATIENT Site Location: [facility] Indications Z01.810 - Encounter for preprocedural cardiovascular examination Procedure Description 23782 Duplex examination using B-mode, color and spectral Doppler of extremity veins including responses to compression and other maneuvers; complete bilateral study. Point Of Care Technician: Cristian Ellis RVT, [facility] Staff Ordering Physician: Beena Barraza [...] Hein MD, RPVI on 03/16/2025 11:15 AM [facility] Aaron Hein M D - 03/16/2025 Patient Info Name: Tristin Powell Age: 85 years : 1940 Gender: Male Exam Date: 03/14/2025 9:26 PM Patient Status: INPATIENT Site Location: [facility] Indications Z01.810 - Encounter for preprocedural cardiovascular examination Procedure Description 86048 Duplex examination using B-mode, color and spectral Doppler of extremity veins including responses to compression and other maneuvers; complete bilateral study. Point Of Care Technician: Cristian Ellis RVT, [facility] Staff Ordering Physician: Beena Barraza [...] Hein MD, RPVI on 03/16/2025 11:15 AM [facility] Upper extremity vein mapping on 03-16-2025 Patient Info Name: Tristin Powell Age: 85 years : 1940 Gender: Male Exam Date: 03/14/2025 9:20 PM Patient Status: INPATIENT Site Location: [facility] Indications Z01.810 - Encounter for preprocedural cardiovascular examination Procedure Description 76650 Duplex examination using B-mode, color and spectral Doppler of extremity veins including responses to compression and other maneuvers; complete bilateral study. Point Of Care Technician: Cristian Ellis RVT, [facility] Staff Ordering Physician: Beena Barraza [...] 9:20 PM Patient Status: INPATIENT Site Location: [facility] Indications Z01.810 - Encounter for preprocedural cardiovascular examination Procedure Description 90717 Duplex examination using B-mode, color and spectral Doppler of extremity veins including responses to compression and other maneuvers; complete bilateral study. Point Of Care Technician: Cristian Ellis RVT, [facility] Staff Ordering Physician: Beena Barraza [...] Hein MD, RPVI on 03/16/2025 11:14 AM [facility] APTTon 03-15-2025 aPTT Coag (Bld) [Time] 33 s [facility] aPTT Coag (Bld) [Time] 33 s Normal 23-34 [facility] Comment on above: Order Comment: Thera peutic range for APTT's is 68 - 104 seconds Performed By: #### 4 5113 ####[facility] [address] [place] [address] Emmanuel Plata M.D. [id number] BASIC METABOLIC PANELon - Anion gap [Moles/Vol] 13 mmol/L Normal 10-20 [facility] Comment on above: Order Comment: [facility] has implemented the eGFR calculation approach that does not have a coefficient for race that conforms to the NKF-ASN Task Force Recommendations. Performed By: #### 4 [id number] #### [facility] [address] [place] [address] Emmanuel Plata M.D. [id number] Calcium [Mass/Vol] 8.9 mg/dL Normal 8.4-10.2 [facility] Comment on above: Order Comment: [facility] has implemented the eGFR calculation approach that does not have a coefficient for race that conforms to the NKF-ASN Task Force Recommendations. Performed By: #### 4 [id number] #### [facility] [address] [place] [address] Emmanuel Plata M.D. [id number] Chloride [Moles/Vol] 108 mmol/L Normal 98-108 [facility] Comment on above: Order Comment: [facility] has implemented the eGFR calculation approach that does not have a coefficient for race that conforms to the NKF-ASN Task Force Recommendations. Performed By: #### 4 [id number] #### [facility] [address] [place], [place] [address] Emmanuel Plata M.D. [id number] Creatinine [Mass/Vol] 1.12 mg/dL Normal 0.80-1.30 [facility] Comment on above: Order Comment: [facility] has implemented the eGFR calculation approach that does not have a coefficient for race that conforms to the NKF-ASN Task Force Recommendations. Performed By: #### 4 [id number] #### [facility] [address] [place] [address] Emmanuel Plata M.D. [id number] EGFR 64 mL/min/1.73 m2 Normal >=60 [facility] Comment on above: Order Comment: [facility] has implemented the eGFR calculation approach that does not have a coefficient for race that conforms to the NKF-ASN Task Force Recommendations. Result Comment: Maria Del Carmen mated GFR was calculated using the 2020 CKD-EPI creatinine equation. Performed By: #### 4 [id number] #### [facility] [address] [place] [address]67 Emmanuel Plata M.D. [id number] Glucose [Mass/Vol] 139 mg/dL High 65-99 [facility] Comment on above: Order Comment: [facility] has implemented the eGFR calculation approach that does not have a coefficient for race that conforms to the NKF-ASN Task Force Recommendations. Performed By: #### 4 [id number] #### [facility] [address] [place] [address] Emmanuel Plata M.D. [id number] HCO3 (Bld) [Moles/Vol] 24 mmol/L Normal 21-32 [facility] Comment on above: Order Comment: [facility] has implemented the eGFR calculation approach that does not have a coefficient for race that conforms to the NKF-ASN Task Force Recommendations. Performed By: #### 4 [id number] #### [facility] [address] [place] [address] Emmanuel Plata M.D. [id number] Potassium [Moles/Vol] 3.9 mmol/L Normal 3.5-5.1 [facility] Comment on above: Order Comment: [facility] has implemented the eGFR calculation approach that does not have a coefficient for race that conforms to the NKF-ASN Task Force Recommendations. Performed By: #### 4 [id number] #### [facility] [address] [place] [address] Emmanuel Plata M.D. [id number] Sodium [Moles/Vol] 141 mmol/L Normal 135-145 [facility] Comment on above: Order Comment: [facility] has implemented the eGFR calculation approach that does not have a coefficient for race that conforms to the NKF-ASN Task Force Recommendations. Performed By: #### 4 [id number] #### [facility] [address] [place] [address] Emmanuel Plata M.D. [id number] Urea nitrogen [Mass/Vol] 19 mg/dL Normal 8-25 [facility] Comment on above: Order Comment: [facility] has implemented the eGFR calculation approach that does not have a coefficient for race that conforms to the NKF-ASN Task Force Recommendations. Performed By: #### 4 [id number] #### [facility] [address] [place] [address] Emmanuel Plata M.D. [id number] Urea nitrogen/Creatinine [Mass ratio] 17.0 mg/mg Normal 10.0-20.0 [facility] Comment on above: Order Comment: [facility] has implemented the eGFR calculation approach that does not have a coefficient for race that conforms to the NKF-ASN Task Force Recommendations. Performed By: #### 4 [id number] #### [facility] [address] [place] [address] Emmanuel Plata M.D. [id number] Basic metabolic 2000 panelon 03-15-2025 Anion gap [Moles/Vol] 13 mmol/L 10 - 2 0 mmol/L [facility] Calcium [Mass/Vol] 8.9 mg/dL 8.4 - 10. 2 mg/dL [facility] Chloride [Moles/Vol] 108 mmol/L 98 - 10 8 mmol/L [facility] Creatinine [Mass/Vol] 1.12 mg/dL 0.80 - 1.30 mg/dL [facility] GFR/1.73 sq M.predicted CKD-EPI (S/P/Bld) [Vol rate/Area] 64 - PINF [facility] Comment on above: Estimated GFR was ca lculated using the 2020 CKD-EPI creatinine equation. Glucose [Mass/Vol] 139 mg/dL High 65 - 99 mg/dL [facility] HCO3 [Moles/Vol] 24 mmol/L 21 - 32 mmol/L [facility] Interpretation and review of laboratory results Abnormal [facility] Potassium [Moles/Vol] 3.9 mmol/L 3.5 - 5.1 mmol/L [facility] Sodium [Moles/Vol] 141 mmol/L 135 - 145 mmol/L [facility] Urea nitrogen [Mass/Vol] 19 mg/dL 8 - 25 mg/dL [facility] Urea nitrogen/Creatinine [Mass ratio] 17 mg/mg 10.0 - 20.0 [facility] has implemented the eGFR calculation approach that does not have a coefficient for race that conforms to the NKF-ASN Task Force Recommendations. [facility]Con 03-15-2025 AUTO NRBC 0.0 % Normal [facility] Comment on above: Performed By: #### 4 6101 #### [facility] [address] [place] [address] Emmanuel Plata M.D. [id number] AUTO NRBC ABS COUNT 0.00 K/mcL Normal 0.00-0.00 [facility] Comment on above: Performed By: #### 4 6699 #### [facility] [address] [place] [address] Emmanuel Plata M.D. [id number] Erythrocyte distribution width (RBC) [Ratio] 13.4 % Normal 11.6-14.8 [facility] Comment on above: Performed By: #### 4 3049 #### [facility] [address] [place] [address] Emmanuel Plata M.D. [id number] Hematocrit (Bld) [Volume fraction] 34.9 % Low 41.0-53.0 [facility] Comment on above: Performed By: #### 4 7526 #### [facility] [address] [place] [address] Emmanuel Plata M.D. [id number] Hemoglobin (Bld) [Mass/Vol] 11.7 g/dL Low 13.5-17.5 [facility] Comment on above: Performed By: #### 4 2829 #### [facility] [address] [place] [address] Emmanuel Plata M.D. [id number] MCH (RBC) [Entitic mass] 30.4 pg Normal 26.0-34.0 [facility] Comment on above: Performed By: #### 4 7409 #### [facility] [address] [place] [address] Emmanuel Plata M.D. [id number] MCV (RBC) [Entitic vol] 90.6 fL Normal 80.0-100.0 [facility] Comment on above: Result Comment: Repe ated AND verified Performed By: #### 4 6109 #### [facility] [address] [place] [address] Emmanuel Plata M.D. [id number] MEAN CORPUSCULAR HEMOGLOBIN CONC 33.5 g/dL Normal 31.0-37.0 [facility] Comment on above: Result Comment: Repe ated AND verified Performed By: #### 4 [id number] #### [facility] [address] [place] [address] Emmanuel Plata M.D. [id number] Platelet mean volume (Bld) [Entitic vol] 9.9 fL Normal 9.4-12.4 [facility] Comment on above: Performed By: #### 4 [id number] #### [facility] [address] [place] [address] Emmanuel Plata M.D. [id number] Platelets (Bld) [#/Vol] 144 10*3/uL Low 150-400 [facility] Comment on above: Performed By: #### 4 [id number] #### [facility] [address] [place] [address] Emmanuel Plata M.D. [id number] RBC (Bld) [#/Vol] 3.85 10*6/uL Low 4.50-5.90 [facility] Comment on above: Performed By: #### 4 [id number] #### [facility] [address] [place], [place] [address] Emmanuel Plata M.D. [id number] WBC (Bld) [#/Vol] 3.23 10*3/uL Low 4.50-11.00 [facility] Comment on above: Performed By: #### 4 [id number] #### [facility] [address] [place] [address] Emmanuel Plata M.D. [id number] CBC panel Auto (Bld)on 03-15 Erythrocyte distribution width (RBC) [Entitic vol] 13.4 % 11.6 - 14.8 % [facility] Hematocrit (Bld) [Volume fraction] 34.9 % Low 41.0 - 53.0 % [facility] Hemoglobin (Bld) [Mass/Vol] 11.7 g/dL Low 13.5 - 17.5 g/dL [facility] Interpretation and review of laboratory results Abnormal [facility] MCH (RBC) [Entitic mass] 30.4 pg 26.0 - 34.0 pg [facility] MCHC (RBC) [Mass/Vol] 33.5 g/dL 31.0 - 37.0 g/dL [facility] Comment on above: Repeated & verified MCV (RBC) [Entitic vol] 90.6 fL 80.0 - 100.0 fL [facility] Comment on above: Repeated & verified Nucleated RBC (Bld) [#/Vol] 0 10*3/uL [facility] Nucleated RBC/100 WBC (Bld) [Ratio] 0 % [facility] Platelet mean volume (Bld) [Entitic vol] 9.9 fL 9.4 - 12.4 fL [facility] Platelets (Bld) [#/Vol] 144 10*3/uL Low [facility] RBC (Bld) [#/Vol] 3.85 10*6/uL [facility]alth WBC (Bld) [#/Vol] 3.23 10*3/uL [facility] eah [facility] ECG 12 Leadon 03-15-2025 Atrial Rate 83 BPM [facility] P [place] 62 degrees [facility] P-R Interval 182 ms [facility] Q-T Interval 400 ms [facility] QRS Duration 92 ms [facility] QTC Calculation (Bezet) 470 ms [facility] R [place] 35 degrees [facility] T [place] 41 degrees [facility] Ventricular Rate 83 BPM [facility] Sinus rhythm with Premature supraventricular complexes Otherwise normal ECG Confirmed by OTILIO MONTOYA M.D. ([id number]) on 03/15/2025 6:58:39 AM MUSE [facility] HEMOGLOBIN AND HEMATOCRITon 03-15-2025 Hematocrit (Bld) [Volume fraction] 31.0 % Low 41.0-53.0 [facility] Comment on above: Performed By: #### 4 [id number] #### [facility] [address] [place] [address] Emmanuel Plata M.D. [id number] Hemoglobin (Bld) [Mass/Vol] 12.4 g/dL Low 13.5-17.5 [facility] Comment on above: Performed By: #### 4 [id number] #### [facility] [address] [place] [address] 12026 Emmanuel Plata M.D. [id number] Hemoglobin and Hematocrit pa franklin (Bld)on 03-15-2025 Hematocrit (Bld) [Volume fraction] 31 % Low 41.0 - 53.0 % [facility] Hemoglobin (Bld) [Mass/Vol] 12.4 g/dL Low 13.5 - 17.5 g/dL [facility] Interpretation and review of laboratory results Abnormal [facility] MAGNESIUM LEVELon 03-15-2025 Magnesium [Mass/Vol] 2.2 mg/dL Normal 1.6-2.4 [facility] Comment on above: Performed By: #### 4 [id number] #### [facility] [address] [place] [address]78 Emmanuel Plata M.D. [id number] Magnesiumon 03-15-2025 Magnesium [Mass/Vol] 2.2 mg/dL 1.6 - 2 .4 mg/dL [facility] Magnesium [Mass/Vol]on 03-15 Interpretation and review of laboratory results Normal [facility] No Panel Informationon 03-15 [facility] [facility] Repeat EKGon 03-15-2025 Atrial Rate 93 BPM [facility] P-R Interval 170 ms [facility] Q-T Interval 404 ms [facility] QRS Duration 94 ms [facility] QTC Calculation (Bezet) 502 ms [facility] R Harvard 49 degrees [facility] T Harvard 44 degrees [facility] Ventricular Rate 93 BPM [facility] Sinus rhythm with frequent Premature ventricular complexes Prolonged QT Abnormal ECG Confirmed by OTILIO MONTOYA M.D. ([id number]) on 03/15/2025 7:01:22 AM MUSE [facility] aPTT Coag (Bld) [Time]on Interpretation and review of laboratory results Normal [facility] Therapeutic range fo r APTT's is 68 - 104 seconds [facility] Basic metabolic 1998 panelOr dered By: Regina Dillon on 03-14-2025 Anion gap [Moles/Vol] 16 mmol/L 10 - 2 0 mmol/L [facility] Chloride [Moles/Vol] 102 mmol/L 98 - 10 8 mmol/L [facility] Creatinine [Mass/Vol] 1.12 mg/dL 0.80 - 1.30 mg/dL [facility] GFR/1.73 sq M.predicted CKD-EPI (S/P/Bld) [Vol rate/Area] 64 - PINF [facility] Comment on above: Estimated GFR was ca lculated using the 2020 CKD-EPI creatinine equation. Glucose [Mass/Vol] 100 mg/dL High 65 - 99 mg/dL [facility] HCO3 [Moles/Vol] 25 mmol/L 21 - 32 mmol/L [facility] Interpretation and review of laboratory results Abnormal [facility] Potassium [Moles/Vol] 3.8 mmol/L 3.5 - 5.1 mmol/L [facility] Sodium [Moles/Vol] 139 mmol/L 135 - 145 mmol/L [facility] Urea nitrogen [Mass/Vol] 20 mg/dL 8 - 25 mg/dL [facility] Urea nitrogen/Creatinine [Mass ratio] 17.9 mg/mg 10.0 - 20.0 [facility] Services has implemented the eGFR calculation approach that does not have a coefficient for race that conforms to the NKF-ASN Task Force Recommendations. [facility] CBC Auto Differentialon 02-25 Basophils (Bld) [#/Vol] 0.02 10*3/uL [facility] Basophils/100 WBC (Bld) 0.6 % [facility] Eosinophils (Bld) [#/Vol] 0.12 10*3/uL [facility] Eosinophils/100 WBC (Bld) 3.4 % [facility] Erythrocyte distribution width (RBC) [Entitic vol] 13.5 % 11.6 - 14.8 % [facility] Hematocrit (Bld) [Volume fraction] 39.3 % Low 41.0 - 53.0 % [facility] Hemoglobin (Bld) [Mass/Vol] 13.2 g/dL Low 13.5 - 17.5 g/dL [facility] Immature granulocytes (Bld) [#/Vol] 0.01 10*3/uL [facility] Immature granulocytes/100 WBC (Bld) 0.3 % [facility] Comment on above: The IG parameter is the percentage of metamyelocytes, myelocytes and promyelocytes. An immature granulocyte count (IG) of 1% or more suggests the possibility of infection, an IG count of 3% is very likely related to an infection. Interpretation and review of laboratory results Abnormal [facility] Lymphocytes (Bld) [#/Vol] 0.65 10*3/uL Low [facility] Lymphocytes/100 WBC (Bld) 18.6 % [facility] MCH (RBC) [Entitic mass] 30.4 pg 26.0 - 34.0 pg [facility] MCHC (RBC) [Mass/Vol] 33.6 g/dL 31.0 - 37.0 g/dL [facility] MCV (RBC) [Entitic vol] 90.6 fL 80.0 - 100.0 fL [facility] Monocytes (Bld) [#/Vol] 0.81 10*3/uL [facility] Monocytes/100 WBC (Bld) 23.1 % [facility] Neutrophils (Bld) [#/Vol] 1.89 10*3/uL [facility] Neutrophils/100 WBC (Bld) 54 % [facility] Comment on above: Peripheral smear rev iewed manually Nucleated RBC (Bld) [#/Vol] 0 10*3/uL [facility] Nucleated RBC/100 WBC (Bld) [Ratio] 0 % [facility] Platelet mean volume (Bld) [Entitic vol] 9.3 fL Low 9.4 - 12.4 fL [facility] Platelets (Bld) [#/Vol] 173 10*3/uL [facility] RBC (Bld) [#/Vol] 4.34 10*6/uL [facility] ealth WBC (Bld) [#/Vol] 3.5 10*3/uL Low [facility] CBC WITH AUTO DIFFERENTIALon 03-14-2025 AUTO NRBC 0.0 % Normal [facility] Comment on above: Performed By: #### [id number] #### [facility] [address], [place] [address] Emmanuel Plata M.D. [id number] AUTO NRBC ABS COUNT 0.00 K/mcL Normal 0.00-0.00 [facility] Comment on above: Performed By: #### [id number] #### [facility] [address] [place] [address] Emmanuel Plata M.D. [id number] BASOPHILS ABSOLUTE COUNT 0.02 K/mcL Normal 0.00-0.30 [facility] Comment on above: Performed By: #### [id number] #### [facility] [address] [place] [address] Emmanuel Plata M.D. [id number] Basophils/100 WBC (Bld) 0.6 % Normal [facility] Comment on above: Performed By: #### [id number] #### [facility] [address] [place] [address] Emmanuel Plata M.D. [id number] Eosinophils (Bld) [#/Vol] 0.12 10*3/uL Normal 0.00-0.50 [facility] Comment on above: Performed By: #### 4 [id number] #### [facility] [address] [place] [address] Emmanuel Plata M.D. [id number] Eosinophils/100 WBC (Bld) 3.4 % Normal [facility] Comment on above: Performed By: #### 4 [id number] #### [facility] [address] [place] [address] Emmanuel Plata M.D. [id number] Erythrocyte distribution width (RBC) [Ratio] 13.5 % Normal 11.6-14.8 [facility] Comment on above: Performed By: #### 4 [id number] #### [facility] [address] [place], [place] [id number] Emmanuel Plata M.D. [id number] Hematocrit (Bld) [Volume fraction] 39.3 % Low 41.0-53.0 [facility] Comment on above: Performed By: #### 4 0329 #### [facility] [address] [place] [address] Emmanuel Plata M.D. [id number] Hemoglobin (Bld) [Mass/Vol] 13.2 g/dL Low 13.5-17.5 [facility] Comment on above: Performed By: #### 4 [id number] #### [facility] [address] [place], [place] [address] Emmanuel Plata M.D. [id number] IG ABSOLUTE 0.01 K/mcL Normal 0.00-0.30 [facility] Comment on above: Performed By: #### 4 [id number] #### [facility] [address] [place], [place] [address] Emmanuel Plata M.D. [id number] IG PERCENT 0.30 % Normal [facility] Comment on above: Result Comment: The IG parameter is the percentage of metamyelocytes, myelocytes and promyelocytes. An immature granulocyte count (IG) of 1% or more suggests the possibility of infection, an IG count of 3% is very likely related to an infection. Performed By: #### 4 [id number] #### [facility] [address] [place], [place] [address] Emmanuel Plata M.D. [id number] Lymphocytes (Bld) [#/Vol] 0.65 10*3/uL Low 0.90-4.00 [facility] Comment on above: Performed By: #### 4 [id number] #### [facility] [address] [place], [place] [address] Emmanuel Plata M.D. [id number] Lymphocytes/100 WBC (Bld) 18.6 % Normal [facility] Comment on above: Performed By: #### 4 [id number] #### [facility] [address] [place], [place] [address] Emmanuel Plata M.D. [id number] MCH (RBC) [Entitic mass] 30.4 pg Normal 26.0-34.0 [facility] Comment on above: Performed By: #### 4 [id number] #### [facility] [address] [place], [place] [address] Emmanuel Plata M.D. [id number] MCV (RBC) [Entitic vol] 90.6 fL Normal 80.0-100.0 [facility] Comment on above: Performed By: #### 4 9060 #### [facility] [address] [place] [address] Emmanuel Plata M.D. [id number] MEAN CORPUSCULAR HEMOGLOBIN CONC 33.6 g/dL Normal 31.0-37.0 [facility] Comment on above: Performed By: #### 4 [id number] #### [facility] [address] [place] [address] Emmanuel Plata M.D. [id number] Monocytes (Bld) [#/Vol] 0.81 10*3/uL Normal 0.30-0.90 [facility] Comment on above: Performed By: #### 4 7471 #### [facility] [address] [place], [place] [address] Emmanuel Plata M.D. [id number] Monocytes/100 WBC (Bld) 23.1 % Normal [facility] Comment on above: Performed By: #### 4 9458 #### [facility] [address] [place], [place] [address] Emmanuel Plata M.D. [id number] NEUTROPHILS ABSOLUTE COUNT 1.89 K/mcL Normal 1.70-7.00 [facility] Comment on above: Performed By: #### 4 1747 #### [facility] [address] [place], [place] [address] Emmanuel Plata M.D. [id number] Neutrophils/100 WBC (Bld) 54.0 % Normal [facility] Comment on above: Result Comment: Edna pheral smear reviewed manually Performed By: #### 4 1539 #### [facility] [address] [place] [address] Emmanuel Plata M.D. [id number] Platelet mean volume (Bld) [Entitic vol] 9.3 fL Low 9.4-12.4 [facility] Comment on above: Performed By: #### 4 [id number] #### [facility] [address] [place], [place] [address] Emmanuel Plata M.D. [id number] Platelets (Bld) [#/Vol] 173 10*3/uL Normal 150-400 [facility] Comment on above: Performed By: #### 4 [id number] #### [facility] [address] [place], [place] [address] Emmanuel Plata M.D. [id number] RBC (Bld) [#/Vol] 4.34 10*6/uL Low 4.50-5.90 [facility] Comment on above: Performed By: #### 4 [id number] #### [facility] [address] [place] [address] Emmanuel Plata M.D. [id number] WBC (Bld) [#/Vol] 3.50 10*3/uL Low 4.50-11.00 [facility] Comment on above: Performed By: #### 4 [id number] #### [facility] [address] [place], [place] [address] Emmanuel Plata M.D. [id number] CHEM 703-14-2025 Anion gap [Moles/Vol] 16 mmol/L Normal 10-20 [facility] Comment on above: Order Comment: [facility] has implemented the eGFR calculation approach that does not have a coefficient for race that conforms to the NKF-ASN Task Force Recommendations. Performed By: #### 4 [id number] #### [facility] [address] [place], [place] [address]Nessa Plata M.D. [id number] Chloride [Moles/Vol] 102 mmol/L Normal 98-108 [facility] Comment on above: Order Comment: [facility] has implemented the eGFR calculation approach that does not have a coefficient for race that conforms to the NKF-ASN Task Force Recommendations. Performed By: #### 4 [id number] #### [facility] [address] [place] [address] Emmanuel Plata M.D. [id number] Creatinine [Mass/Vol] 1.12 mg/dL Normal 0.80-1.30 [facility] Comment on above: Order Comment: [facility] has implemented the eGFR calculation approach that does not have a coefficient for race that conforms to the NKF-ASN Task Force Recommendations. Performed By: #### 4 [id number] #### [facility] [address] [place], [place] [address] Emmanuel Plata M.D. [id number] EGFR 64 mL/min/1.73 m2 Normal >=60 [facility] Comment on above: Order Comment: [facility] has implemented the eGFR calculation approach that does not have a coefficient for race that conforms to the NKF-ASN Task Force Recommendations. Result Comment: Maria Del Carmen mated GFR was calculated using the 2020 CKD-EPI creatinine equation. Performed By: #### 4 [id number] #### [facility] [address] [place] [address] Emmanuel Plata M.D. [id number] Glucose [Mass/Vol] 100 mg/dL High 65-99 [facility] Comment on above: Order Comment: [facility] has implemented the eGFR calculation approach that does not have a coefficient for race that conforms to the NKF-ASN Task Force Recommendations. Performed By: #### 4 [id number] #### [facility] [address] [place] [address] Emmanuel Plata M.D. [id number] HCO3 (Bld) [Moles/Vol] 25 mmol/L Normal 21-32 [facility] Comment on above: Order Comment: [facility] has implemented the eGFR calculation approach that does not have a coefficient for race that conforms to the NKF-ASN Task Force Recommendations. Performed By: #### 4 [id number] #### [facility] [address] [place] [address] Emmanuel Plata M.D. [id number] Potassium [Moles/Vol] 3.8 mmol/L Normal 3.5-5.1 [facility] Comment on above: Order Comment: [facility] has implemented the eGFR calculation approach that does not have a coefficient for race that conforms to the NKF-ASN Task Force Recommendations. Performed By: #### 4 [id number] #### [facility] [address] [place] [address] Emmanuel Plata M.D. [id number] Sodium [Moles/Vol] 139 mmol/L Normal 135-145 [facility] Comment on above: Order Comment: [facility] has implemented the eGFR calculation approach that does not have a coefficient for race that conforms to the NKF-ASN Task Force Recommendations. Performed By: #### 4 [id number] #### [facility] [address] [place] [address] Emmanuel Plata M.D. [id number] Urea nitrogen [Mass/Vol] 20 mg/dL Normal 8-25 [facility] Comment on above: Order Comment: [facility] has implemented the eGFR calculation approach that does not have a coefficient for race that conforms to the NKF-ASN Task Force Recommendations. Performed By: #### 4 [id number] #### [facility] [address] [place] [address] Emmanuel Plata M.D. [id number] Urea nitrogen/Creatinine [Mass ratio] 17.9 mg/mg Normal 10.0-20.0 [facility] Comment on above: Order Comment: [facility] has implemented the eGFR calculation approach that does not have a coefficient for race that conforms to the NKF-ASN Task Force Recommendations. Performed By: #### 4 [id number] #### [place] [address] Emmanuel Plata M.D. [id number] CONSULTon 03-14-2025 CONSULT -- Attestation signed by Ben Hahn MD at 03/14/2025 4:44 PM Interventional & Peripheral Vascular Cardiology Tristin Powell is a 85 y.o. male with a past medical history significant for CAD with prior CABG, hypertension, stage III CKD, hyperlipidemia, heart failure with preserved ejection fraction, paroxysmal atrial fibrillation, and advanced PAD who presents with Dale 4 critical limb threatening ischemia of the [...] He underwent angiography 2 days ago in [place] where he was found to have progressive [...] Arthritis Avascular necrosis of bone of hip ([facility]) Claudication COPD (chronic obstructive pulmonary disease) ([facility]) Coronary artery disease Herpes zoster Hyperlipidemia Hypertension PAD (peripheral artery disease) ([facility]) 01/21/2022 Posterior tibial tendinitis of right leg 11/07/2022 Prostate cancer (HCC) Vascular disease Allergies: Doxycycline and Gabapentin Current [...] vascular surgery colleagues I personally performed a [id number] diagnostic evaluation on this patient on the [...] mg 650 mg Oral Q4H While awake Grandin, Muna Magy, MD 650 mg at 03/14/25 1456 HYDROmorphone (DILAUDID) injection 0.5 mg 0.5 mg Intravenous Q3H PRN Muna Otto MD naloxone (NARCAN) injection 0.1 mg 0.1 mg Intravenous PRN Grandin, Muna Bhatti MD And naloxone (NARCAN) injection 0.4 mg 0.4 mg Intravenous PRN GrandinMuna denise MD ondansetron (ZOFRAN) injection 4 mg 4 mg Intravenous Q6H (more content not included)... Normal [facility] CONSULT -- Attestation signed by Mohsen Sarabia MD at 03/16/2025 10:33 AM Patient seen and examined. I have personally reviewed all pertinent labs, radiological studies and records. I have personally examined the patient and agree with resident/FRONT END JAVA DEVELOPER/PA assessment and plan with the following additional [...] (2019, Monty), left TMA who presented to [facility] on 03/14/2025 with worsening RLE pain and [...] Beena Barraza MD General Surgery Resident, PGY-2 [facility] Please contact surgical director international pony roll finisher 5PM-6AM and weekends - #[phone] ARS Pager - #[phone] Admitted with these risk variables:None. Please see [...] (HCC) Claudication COPD (chronic obstructive pulmonary disease) ([facility]) Coronary artery disease Herpes zoster Hyperlipidemia Hypertension PAD (peripheral artery disease) ([facility]) 01/21/2022 Posterior tibial tendinitis of right leg 11/07/2022 Prostate cancer (HCC) Vascular disease Past Surgical History: Procedure Laterality Date 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/08/2018 Procedure: LEFT MIDFOOT AMPUTATION; Surgeon: Flynn Mann DPM; Location: [facility] OR; Service: Podiatry ANKLE SURGERY Left BYPASS PERONEAL FEMORAL Right 09/07/2018 Procedure: BYPASS PERONEAL FEMORAL, RIGHT SAPHENOUS VEIN HARVEST, COMPLETION ANGIOGRAM; Surgeon: Mohsen Sarabia MD; Location: [facility] OR; Service: Cardiovascular CARDIAC CATHETERIZATION Left 09/05/2018 Procedure: Angio Lower Extremity; Surgeon: Ben Hahn MD; Location: [facility]; Service: Cardiovascular CARDIAC SURGERY 2017 triple bypass EGD N/A 10/10/2018 Procedure: ESOPHAGOGASTRODUODENOS COPY; Surgeon: Ben Jensen MD; Location: [facility] End[facility]; Service: Gastroenterology EYE SURGERY Right 2015 [...] rise Extremiti (more content not included)... Normal [facility] ED Prov Noteon 03-14-2025 ED Prov Note ED PROVIDER NOTE [facility] EMER[facility]ENCY DEPART[facility] Patient Name: Tristin Powell Age: [...] Course User Index [EK] Elaine Macdonald MD [facility] Data: I saw and evaluated the patient. [...] 113.4 kg (250 lb) - Refer to MDM section above for additional physical exam data. [...] - Avascular necrosis of bone of hip ([facility]) - Claudication - COPD (chronic obstructive pulmonary disease) ([facility]) - Coronary artery disease - Herpes zoster - Hyperlipidemia - Hypertension - PAD (peripheral artery disease) ([facility]) 01/21/2022 - Posterior tibial tendinitis of right leg 11/07/2022 - Prostate cancer ([facility]) - Vascular disease Past Surgical History: Procedure Laterality Date - 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/08/2018 Procedure: LEFT MIDFOOT AMPUTATION; Surgeon: Flynn Mann DPM; Location: [facility] OR; Service: Podiatry - ANKLE SURGERY Left - BYPASS PERONEAL FEMORAL Right 09/07/2018 Procedure: BYPASS PERONEAL FEMORAL, RIGHT SAPHENOUS VEIN HARVEST, COMPLETION ANGIOGRAM; Surgeon: Mohsen Sarabia MD; Location: [facility] OR; Service: Cardiovascular - CARDIAC CATHETERIZATION Left 09/05/2018 Procedure: Angio Lower Extremity; Surgeon: Ben Hahn MD; Location: [facility]; Service: Cardiovascular - CARDIAC SURGERY 2017 triple bypass - EGD N/A 10/10/2018 Procedure: ESOPHAGOGASTRODUODENO (more content not included)... Normal [facility] Gold Topon 03-14-2025 Extra Tube Hold for add-ons. [facility] Comment on above: Auto resulted. [facility] Friedman Topon 03-14-2025 Extra Tube Hold for add-ons. [facility] Comment on above: Auto resulted. INR Coag (PPP) [Relative abi e]on 03-14-2025 Interpretation and review of laboratory results Abnormal [facility] PT Coag (PPP) [Time] 14.6 s High [facility] During the induction phase of oral anticoagulation, the INR may not reflect the anticoagulation status of the patient. Therapeutic ranges for INR's are: Most clinical situations: INR 2.0-3.0 Mechanical Prosthetic Valve: INR 2.5-3.5 Critical: INR >5.0 [facility] No Panel Informationon 03-14 [facility] PT/INRon 03-14-2025 INR Coag (PPP) [Relative time] 1.1 {INR} 0.8 - 1.1 [facility] INR Coag (PPP) [Relative time] 1.1 {INR} Normal 0.8-1.1 [facility] Comment on above: Order Comment: Thera peutic range for APTT's is 68 - 104 seconds Performed By: #### [id number] #### [facility] [address] [place], [place] [id number] Emmanuel Plata M.D. [id number] PT Coag (PPP) [Time] 14.6 s High 11.8-14.3 [facility] Comment on above: Order Comment: Thera peutic range for APTT's is 68 - 104 seconds Performed By: #### 4 [id number] #### [facility] [address] [place], [place] [id number] Emmanuel Plata M.D. [id number] US ANKLE/BRACHIAL INDICES EX TREMITY LIMITEDon 03-14-2025 US ANKLE/BRACHIAL INDICES EXTREMITY LIMITED Patient Info Name: Tristin Powell Age: 85 years : 1940 Gender: Male Exam Date: 03/14/2025 8:20 AM Patient Status: OUTPATIENT Site Location: [facility] Indications I73.9 - Peripheral vascular disease, unspecified Procedure Description 87453 Limited bilateral noninvasive physiologic studies of upper or lower extremity arteries with bidirectional Doppler/PVR waveform analysis at 1-2 levels. Point Of Care Technician: Ernestina Campos RVT, [facility] Staff Ordering Physician: Mohsen Sarabia MD, RPLUIZA [...] Segmental BP RIGHT Brachial A mmH RIGHT COLLEGE OR UNIVERSITY REGISTRAR mmH RIGHT COLLEGE OR UNIVERSITY REGISTRAR Index: 0.31 RIGHT DPA mmH RIGHT DPA Index: 0.50 RIGHT Digit mmH RIGHT YAMILE Index: 0.50 RIGHT TBI Index: 0.00 LEFT Brachial A mmH LEFT COLLEGE OR UNIVERSITY REGISTRAR Index: 0.40 LEFT COLLEGE OR UNIVERSITY REGISTRAR mmH LEFT DPA Index: 0.55 LEFT DPA mmH LEFT YAMILE Index: 0.55 Doppler RIGHT COLLEGE OR UNIVERSITY REGISTRAR Waveform: Monophasic RIGHT DPA Waveform: Monophasic LEFT COLLEGE OR UNIVERSITY REGISTRAR Waveform: Monophasic LEFT DPA Waveform: Biphasic , PVR RIGHT Ankle Grade: Abnormal RIGHT Transmetarsal Grade: Absent RIGHT Digit (PPG) Grade: Absent LEFT Ankle Grade: Abnormal Prior Interventions 09/07/2018 bypass graft- left fem-peroneal. Report Signatures Finalized by Radha Lomas DO, RVT, RPVI, FSVM on 03/14/2025 11:55 AM [facility] ANKLE/BRACHIAL INDICES EXTREMITY LIMITED Patient Info Name: Tristin Powell Age: 85 years : 1940 Gender: Male Exam Date: 03/14/2025 8:20 AM Patient Status: OUTPATIENT Site Location: [facility] Indications I73.9 - Peripheral vascular disease, unspecified Procedure Description 05459 Limited bilateral noninvasive physiologic studies of upper or lower extremity arteries with bidirectional Doppler/PVR waveform analysis at 1-2 levels. Point Of Care Technician: Ernestina Campos RVT, [facility] Staff Ordering Physician: Mohsen Sarabia MD, RPVI [...] Segmental BP RIGHT Brachial A mmH RIGHT COLLEGE OR UNIVERSITY REGISTRAR mmH RIGHT COLLEGE OR UNIVERSITY REGISTRAR Index: 0.31 RIGHT DPA mmH RIGHT DPA Index: 0.50 RIGHT Digit mmH RIGHT YAMILE Index: 0.50 RIGHT TBI Index: 0.00 LEFT Brachial A mmH LEFT COLLEGE OR UNIVERSITY REGISTRAR Index: 0.40 LEFT COLLEGE OR UNIVERSITY REGISTRAR mmH LEFT DPA Index: 0.55 LEFT DPA mmH LEFT YAMILE Index: 0.55 Doppler RIGHT COLLEGE OR UNIVERSITY REGISTRAR Waveform: Monophasic RIGHT DPA Waveform: Monophasic LEFT COLLEGE OR UNIVERSITY REGISTRAR Waveform: Monophasic LEFT DPA Waveform: Biphasic , PVR RIGHT Ankle Grade: Abnormal RIGHT Transmetarsal Grade: Absent RIGHT Digit (PPG) Grade: Absent LEFT Ankle Grade: Abnormal Prior Interventions 09/07/2018 bypass graft- left fem-peroneal. Report Signatures Finalized by Radha Lomas DO, RVLatricia, RPVI, FSVM on 03/14/2025 11:55 AM Dictated by: RADHA SU on MonMar 14, 2025 11:55:02 AM EDT Transcribed by: RADHA SU on MonMar 14, 2025 11:55:02 AM EDT Finalized by: RADHA SU on MonMar 14, 2025 11:55:02 AM EDT Normal [facility] US DUPLEX ARTERIAL LEG RIGHT on 03-14-2025 US DUPLEX ARTERIAL LEG RIGHT Patient Info Name: Tristin Powell Age: 85 years : 1940 Gender: Male Exam Date: 03/14/2025 8:20 AM Patient Status: OUTPATIENT Site Location: [facility] Indications I73.9 - Peripheral vascular disease, unspecified Procedure Description 07416 Duplex scan of lower extremity arteries or arterial bypass grafts using B-mode, color and spectral Doppler; unilateral or limited study. Point Of Care Technician: Ernestina Campos RVT, [facility] Staff Ordering Physician: Mohsen Sarabia MD, [facility] Conclusions * 50-99% stenosis in the right mid superficial femoral artery. * Unable to obtain right external iliac artery images due to bandaging from recent procedure. Risk Factors Patient with a history of hypertension, hyperlipidemia, CAD and PAD. Measurements RIGHT NURSE RESEARCHER PSV (cm/s): 115 RIGHT NURSE RESEARCHER EDV (cm/s): 7 RIGHT Prox PFA PSV [...] Distal LAUREL EDV (cm/s): 6 RIGHT Prox COLLEGE OR UNIVERSITY REGISTRAR PSV (cm/s): 81 RIGHT Prox COLLEGE OR UNIVERSITY REGISTRAR EDV (cm/s): 14 RIGHT Mid COLLEGE OR UNIVERSITY REGISTRAR PSV (cm/s): 38 RIGHT Mid COLLEGE OR UNIVERSITY REGISTRAR EDV (cm/s): 6 RIGHT Distal COLLEGE OR UNIVERSITY REGISTRAR PSV (cm/s): 57 RIGHT Distal COLLEGE OR UNIVERSITY REGISTRAR EDV (cm/s): 20 RIGHT Prox Gabriela PSV [...] Finalized by Radha Lomas DO, RVT, RPVI, FS on 03/14/2025 11:[address] [facility] US DUPLEX ARTERIAL LEG RIGHT Patient Info Name: Tristin Powell Age: 85 years : 1940 Gender: Male Exam Date: 03/14/2025 8:20 AM Patient Status: OUTPATIENT Site Location: [facility] Indications I73.9 - Peripheral vascular disease, unspecified Procedure Description 35310 Duplex scan of lower extremity arteries or arterial bypass grafts using B-mode, color and spectral Doppler; unilateral or limited study. Point Of Care Technician: Ernestina Campos RVT, [facility] Staff Ordering Physician: Mohsen Sarabia MD, [facility] Conclusions * 50-99% stenosis in the right mid superficial femoral artery. * Unable to obtain right external iliac artery images due to bandaging from recent procedure. Risk Factors Patient with a history of hypertension, hyperlipidemia, CAD and PAD. Measurements RIGHT NURSE RESEARCHER PSV (cm/s): 115 RIGHT NURSE RESEARCHER EDV (cm/s): 7 RIGHT Prox PFA PSV [...] Distal LAUREL EDV (cm/s): 6 RIGHT Prox COLLEGE OR UNIVERSITY REGISTRAR PSV (cm/s): 81 RIGHT Prox COLLEGE OR UNIVERSITY REGISTRAR EDV (cm/s): 14 RIGHT Mid COLLEGE OR UNIVERSITY REGISTRAR PSV (cm/s): 38 RIGHT Mid COLLEGE OR UNIVERSITY REGISTRAR EDV (cm/s): 6 RIGHT Distal COLLEGE OR UNIVERSITY REGISTRAR PSV (cm/s): 57 RIGHT Distal COLLEGE OR UNIVERSITY REGISTRAR EDV (cm/s): 20 RIGHT Prox Gabriela PSV [...] Report Signatures Finalized by Radha Lomas DO, DENIZT, RPVI, FSVM on 03/14/2025 11:57 AM Dictated by: RADHA SU on MonMar 14, 2025 11:57:02 AM EDT Transcribed by: RADHA SU on MonMar 14, 2025 11:57:02 AM EDT Finalized by: RADHA SU on MonMar 14, 2025 11:57:02 AM EDT Normal [facility] US SAPHENOUS VEIN MAPon 02-25 US SAPHENOUS VEIN MAP Patient Info Name: Tristin Powell Age: 85 years : 1940 Gender: Male Exam Date: 03/14/2025 9:26 PM Patient Status: INPATIENT Site Location: [facility] Indications Z01.810 - Encounter for preprocedural cardiovascular examination Procedure Description 61888 Duplex examination using B-mode, color and spectral Doppler of extremity veins including responses to compression and other maneuvers; complete bilateral study. Point Of Care Technician: Cristian Ellis RVT, [facility] Staff Ordering Physician: Beena Barraza [...] 11:15 AM Dictated by: AARON HEIN on [place] Mar 16, 2025 11:15:31 AM EDT Transcribed by: AARON HEIN on [place] Mar 16, 2025 11:15:31 AM EDT Finalized by: AARON HEIN on [place] Mar 16, 2025 11:15:[address] [facility] US UE VEIN MAPon 03-14-2025 UE VEIN MAP Patient Info Name: Tristin Powell Age: 85 years : 1940 Gender: Male Exam Date: 03/14/2025 9:20 PM Patient Status: INPATIENT Site Location: [facility] Indications Z01.810 - Encounter for preprocedural cardiovascular examination Procedure Description 20373 Duplex examination using B-mode, color and spectral Doppler of extremity veins including responses to compression and other maneuvers; complete bilateral study. Point Of Care Technician: Cristian Ellis RVT, [facility] Staff Ordering Physician: Beena Barraza [...] AM EDT Transcribed by: AARON HEIN on [place] Mar 16, 2025 11:14:40 AM EDT Finalized by: AARON HEIN on [place] Mar 16, 2025 11:14:40 AM EDT Normal [facility] Basic Metabolic Panelon 07- Creatinine Clr Calc Pharmacy 66.99 Normal [facility] Comment on above: Result Comment: PERF ORMED BY: [facility] [address] [place] [address] PATHOLOGIST MUSCULOSKELETAL PHYSIOTHERAPIST MAXIM COELHO M.D. Performed By: #### B MP, CBC #### [place] [address] [place] GFR/1.73 sq M.predicted MDRD (S/P/Bld) [Vol rate/Area] mL/min/{1.73_m2} Normal [facility] Comment on above: Performed By: #### B MP, CBC #### [place] [address] [place] Basophils [#/volume] in Bloo d by Automated countOrdered By: Duke Hector on 03-12-2025 Basophils (Bld) [#/Vol] 0.0 10*3/uL Normal 0.0-0.2 [facility] Comment on above: Result Comment: PERF ORMED BY: [place] [address] PATHOLOGIST MUSCULOSKELETAL PHYSIOTHERAPIST MAXIM COELHO M.D. Performed By: #### B MP, CBC #### [place] [address] [place] Basophils/100 leukocytes in Blood by Automated countOrdered By: Duke Hector on 03-12-2025 Basophils/100 WBC (Bld) 1.1 % Normal . [facility] Comment on above: Performed By: #### B MP, CBC #### [place] [address] [place] Calcium [Mass/volume] in Ser um or PlasmaOrdered By: Duke Hector on 03-12-2025 Calcium [Mass/Vol] 9.4 mg/dL Normal 8.6-10.3 [facility] Comment on above: Performed By: #### B MP, CBC #### [place] [address] [place] Carbon dioxide, total [Moles /volume] in Serum or PlasmaOrdered By: Duke Hector on 03-12-2025 CO2 [Moles/Vol] 26.4 mmol/L Normal 21.0-31.0 [facility] Comment on above: Performed By: #### B MP, CBC #### [place] [address] [place] Chloride [Moles/volume] in S roger or PlasmaOrdered By: Duke Hector on 03-12-2025 Chloride [Moles/Vol] 105 mmol/L Normal 98-107 [facility] Comment on above: Performed By: #### B MP, CBC #### [facility] [address] [place] [address] Complete Blood Count Auto Di ffon 03-12-2025 Mean Corpuscular HGB Conc 34.7 g/dL Normal 32.5-35.6 [facility] Comment on above: Performed By: #### B MP, CBC #### [address] NRBC% 0.3 /100{WBC} Normal 0-0.5 [facility] Comment on above: Performed By: #### B MP, CBC #### [address] White Blood Count 2.4 [CFU]/mL Low 4.1-10.5 [facility] [place] [facility] Comment on above: Performed By: #### B MP, CBC #### [address] Creatinine [Mass/volume] in Serum or PlasmaOrdered By: Duke Hector on 03-12-2025 Creatinine [Mass/Vol] 1.06 mg/dL Normal 0.70-1.30 [facility] Comment on above: Performed By: #### B MP, CBC #### [address] ECG 12 lead ECGon 03-12-2025 ECG 12 lead ECG [facility] [place] [address] Electrocardiograph Report Signed Patient: Tristin Powell MR#: [id number] : 1940 Acct:[id number] Age/Sex: 85 / M ADM Date: 03/12/25 Loc: [place] Room: Type: [facility] Attending Dr: Cristian Beaver MD Ordering Provider: [...] QT Abnormal ECG Confirmed by Mell Jackson ([id number]) on 03/13/2025 4:30:37 PM Referred By: Electronically Signed By: Mell Jackson Transcribed By: MUS Signed By Mell Jackson MD 5 1630 Normal [facility] Eosinophils [#/volume] in Bl ood by Automated countOrdered By: Duke Hector on 03-12-2025 Eosinophils (Bld) [#/Vol] 0.1 10*3/uL Normal 0.0-0.45 [facility] Comment on above: Performed By: #### B MP, CBC #### [facility] [address] [place] [address] [place] Eosinophils/100 leukocytes i n Blood by Automated countOrdered By: Duke Hector on 03-12-2025 Eosinophils/100 WBC (Bld) 5.7 % Normal . [facility] Comment on above: Performed By: #### B MP, CBC #### [facility] [address] [place] [address] [place] Erythrocyte distribution wid th [Ratio] by Automated countOrdered By: Duke Hector on 03-12-2025 Erythrocyte distribution width (RBC) [Ratio] 14.7 % Normal 12.0-14.8 [facility] Comment on above: Performed By: #### B MP, CBC #### [facility] [address] [place] [address] [place] Erythrocytes [#/volume] in B lood by Automated countOrdered By: Duke Hector on 03-12-2025 RBC (Bld) [#/Vol] 4.29 10*6/uL Normal 3.90-5.[address] [facility] Comment on above: Performed By: #### B MP, CBC #### [facility] [address] [place] [address] [place] Glucose [Mass/volume] in Ser um or PlasmaOrdered By: Duke Hector on 03-12-2025 Glucose [Mass/Vol] 109 mg/dL High 70-100 [facility] Comment on above: ADA recommended refe rence rangeRandom Glucose Reference Range is dependent on time and content of last meal. Glucose of more than 200 mg/dL in a nonstressed, ambulatory subject supports the diagnosis of Diabetes Mellitus. Result Comment: [place] om Glucose Reference Range is dependent on time and content of last meal. Glucose of more than 200 mg/dL in a nonstressed, ambulatory subject supports the diagnosis of Diabetes Mellitus. ADA recommended reference range Performed By: #### B MP, CBC #### [address] Hematocrit [Volume Fraction] of Blood by Automated countOrdered By: Duke Hector on 03-12-2025 Hematocrit (Bld) [Volume fraction] 38.6 % Low 38.8-50.0 [facility] Comment on above: Performed By: #### B MP, CBC #### [address] Hemoglobin [Mass/volume] in BloodOrdered By: Duke Hector on 03-12-2025 Hemoglobin (Bld) [Mass/Vol] 13.4 g/dL Normal 13.0-17.0 [facility] Comment on above: Performed By: #### B MP, CBC #### [address] Leukocytes [#/volume] correc maximilian for nucleated erythrocytes in Blood by Automated counOrdered By: Duke Hector on 03-12-2025 WBC corrected for nucl RBC Auto (Bld) [#/Vol] 2.4 10*3/uL Low 4.1-10.5 [facility] Leukocytes [#/volume] in Blo od by Automated countOrdered By: Duke Hector on 03-12-2025 WBC (Bld) [#/Vol] 2.4 10*3/uL Low 4.1-10.5 [facility] Comment on above: Performed By: #### B MP, CBC #### [place] [address] [place] Lymphocytes [#/volume] in Bl ood by Automated countOrdered By: Duke Hector on 03-12-2025 Lymphocytes (Bld) [#/Vol] 0.5 10*3/uL Low 1.00-4.8 [facility] Comment on above: Performed By: #### B MP, CBC #### [address] Lymphocytes/100 leukocytes i n Blood by Automated countOrdered By: Duke Hector on 03-12-2025 Lymphocytes/100 WBC (Bld) 22.3 % Normal . [facility] Comment on above: Performed By: #### B MP, CBC #### [address] MCH [Entitic mass] by Automa maximilian countOrdered By: Duke Hector on 03-12-2025 MCH (RBC) [Entitic mass] 31.2 pg Normal 27.5-35.2 [facility] Comment on above: Performed By: #### B MP, CBC #### [address] MCHC Auto (RBC) [Mass/Vol]Or dered By: Duke Hector on 03-12-2025 MCHC (RBC) [Mass/Vol] 34.7 g/dL 32.5-35.6 [facility] MCV [Entitic volume] by Auto mated countOrdered By: Duke Hector on 03-12-2025 MCV (RBC) [Entitic vol] 90.0 fL Normal 83.5-101 [facility] Comment on above: Performed By: #### B MP, CBC #### [place] [address] [place] Monocytes [#/volume] in Bloo d by Automated countOrdered By: Duke Hector on 03-12-2025 Monocytes (Bld) [#/Vol] 0.6 10*3/uL Normal 0.0-0.8 [facility] Comment on above: Performed By: #### B MP, CBC #### [place] [address] [place] Monocytes/100 leukocytes in Blood by Automated countOrdered By: Duke Hector on 03-12-2025 Monocytes/100 WBC (Bld) 23.1 % Normal . [facility] Comment on above: Performed By: #### B MP, CBC #### [address] Neutrophils [#/volume] in Bl ood by Automated countOrdered By: Duke Hector on 03-12-2025 Neutrophils (Bld) [#/Vol] 1.2 10*3/uL Low 1.8-7.7 [facility] Comment on above: Performed By: #### B MP, CBC #### [address] Neutrophils/100 leukocytes i n Blood by Automated countOrdered By: Duke Hector on 03-12-2025 Neutrophils/100 WBC (Bld) 47.8 % Normal . [facility] Comment on above: Performed By: #### B MP, CBC #### [facility] [address] [place] [address] No Panel InformationOrdered By: Duke Hector on 03-12-2025 Estimated GFR (CKD-EPI) > 60.0 mL/Min [facility] Creatinine Clearance (Chem 66.99 [facility] Nucleated erythrocytes [Pres ence] in Blood by Automated countOrdered By: Duke Hector on 03-12-2025 Nucleated RBC Auto Ql (Bld) 0.3 /100{WBC} 0-0.5 [facility] Platelet mean volume [Entiti c volume] in Blood by Automated countOrdered By: Duke Hector on 03-12-2025 Platelet mean volume (Bld) [Entitic vol] 7.6 fL Normal 6.6-10.1 [facility] Comment on above: Performed By: #### B MP, CBC #### [facility] [address] [place] [address] [place] Platelets [#/volume] in Bloo d by Automated countOrdered By: Duke Hector on 03-12-2025 Platelets (Bld) [#/Vol] 166 10*3/uL Normal 150-450 [facility] Comment on above: Performed By: #### B MP, CBC #### [facility] [address] [place] [address] [place] Potassium [Moles/volume] in Serum or PlasmaOrdered By: Duke Hector on 03-12-2025 Potassium [Moles/Vol] 4.4 mmol/L Normal 3.5-5.1 [facility] Comment on above: Performed By: #### B MP, CBC #### [address] Serum or plasma anion gap de terminationOrdered By: Duke Hector on 03-12-2025 Anion gap [Moles/Vol] 11.0 mmol/L Normal 6.0-15.0 [facility] Comment on above: Performed By: #### B MP, CBC #### [address] Sodium [Moles/volume] in Ser um or PlasmaOrdered By: Duke Hector on 03-12-2025 Sodium [Moles/Vol] 138 mmol/L Normal 136-145 [facility] Comment on above: Performed By: #### B MP, CBC #### [address] Urea nitrogen [Mass/volume] in Serum or PlasmaOrdered By: Duke Hector on 03-12-2025 Urea nitrogen [Mass/Vol] 22 mg/dL Normal 7-25 [facility] Comment on above: Performed By: #### B MP, CBC #### [place] [address] [place] CULTURE, URINE, ROUTINEon CULTURE, URINE, ROUTINE SEE NOTE Normal [facility] Comment on above: Result Comment: CULTURE, URINE, ROUTINE Micro Number: [id number] Test Status: Final Specimen Source: Urine Specimen Quality: Adequate Result: No Growth Performed By: #### 3 95 #### [facility] [address], [address] [place] [id number] Incident Response Analyst: Gene Liang MD PSA, TOTALon 01-10-2025 PSA, TOTAL <0.04 Normal < OR = 4.00 [facility] Comment on above: Result Comment: The total PSA value from this assay system is standardized against the WHO standard. The test result will be approximately 20% lower when compared to the equimolar-standardized total PSA ([place]). Comparison of serial PSA results should be interpreted with this fact in mind. This test was performed using the Siemens chemiluminescent method. Values obtained from different assay methods cannot be used interchangeably. PSA levels, regardless of value, should not be interpreted as absolute evidence of the presence or absence of disease. Performed By: #### 5 363 #### [facility] [place] [id number] [facility], [address] [place] [address] Incident Response Analyst: Gene Liang MD Urinalysis macro (dipstick) panel (U)on 01-09-2025 Bilirubin, UA Negative Negative - 4(70) +++ mg/dL [facility] Blood, UA Negative Negative - 50 Donovan/mcL [facility] Clarity, UA Clear [facility] Color, UA Light Yellow [facility] Glucose, UA Negative Negative - 2000(110) ++++ mg/dL [facility] Interpretation and review of laboratory results Normal [facility] Ketones, UA Negative Negative - 160(16) ++++ mg/dL [facility] Leukocytes, UA Negative Negative - 500+++ Adarsh/mcL [facility] Nitrite, UA Negative Negative - Positive [facility] pH, UA 7.5 5 - 9 [facility] Protein, UA Negative Negative - 2000(20) ++++ mg/dL [facility] Spec Grav, UA 1 1 - 1.03 [facility] Urobilinogen, UA 0.2 0.2 - 12 mg/dL [facility] Office [place] 12-18-2024 Follow-up visit [id number] Tristin Powell Hortensia 1940 M Date Provider Department Center 12/18/2024 SaraELIEZER CARVALHO [facility] Family History Problem Relation Age of Onset Coronary artery disease Other Hyperlipidemia Other Hypertension Other Family Status - Relation Status Age at Other Level of Service:73687 [place] OFFICE/OUTPATIENT ESTABLISHED LOW MDM 20 MIN Normal [facility] US ankle/arm indiceson 07-29 US ankle/arm indices [facility] [address] [place] [address] Ultrasound Report Signed Patient: Tristin Powell MR#: [id number] : 1940 Acct:[id number] Age/Sex: 84 / M ADM Date: 07/29/24 Loc: [facility] Room: Type: REG CLI Attending Dr: Cristian [...] Cristian Beaver M.D.07/29/2024 11:33 AM Dictation Location: [place] [address] Tech: Viviana Pat Transcribed By: VICENTE 07/29/24 1133 Dictated By: Cristian Beaver MD 07/29/24 1132 Signed By: 07/29/24 1133 Normal [facility] US arterial duplex LE LTon 1 09-29-2023 US arterial duplex LE LT [facility] [address] [place] [address] Ultrasound Report Signed Patient: Tristin Powell MR#: [id number] : 1940 Acct:[id number] Age/Sex: 84 / M ADM Date: 07/29/24 Loc: [facility] Room: Type: REG CLI Attending Dr: Cristian [...] Cristian Beaver M.D.07/29/2024 11:35 AM Dictation Location: [place] [address] Tech: Gaby Castro Transcribed By: VICENTE 07/29/24 1135 Dictated By: Cristian Beaver MD 07/29/24 1133 Signed By: 07/29/24 1135 Normal [facility] US carotid doppler BIon 12-0 US carotid doppler BI [facility] [address] [place] [address] Ultrasound Report Signed Patient: Tristin Powlel MR#: [id number] : 1940 Acct:[id number] Age/Sex: 84 / M ADM Date: 07/29/24 Loc: [facility] Room: Type: [facility] Attending Dr: Cristian Beaver MD Ordering Provider: [...] Cristian Beaver M.D.07/29/2024 11:31 AM Dictation Location: [id number] Tech: Gaby Castro Transcribed By: VICENTE 07/29/24 1131 Dictated By: Cristian Beaver MD 07/29/24 1130 Signed By: 07/29/24 1131 Normal [facility] Office [place] 07-22-2024 Follow-up visit [id number] Tristin Powell 1940 [facility] Provider Department [place] 07/22/2024 ELIEZER MIXON [facility] Family History Problem Relation Age of Onset Coronary artery disease Other Hyperlipidemia Other Hypertension Other Family Status - Relation Status Age at Other Level of Service:73769 [place] OFFICE/OUTPATIENT ESTABLISHED LOW MDM 20 MIN [place] 36on 07-18-2024 36 LM for patient to return my call. [place] 36on 07-17-2024 36 Please let him know his ECHO looked okay. Labs showed some mild elevation in inflammatory labs. Is he still experiencing chest pains? If so, we can try to start him on something short term to help. Thanks! [place] Telephoneon 07-17-2024 Telephone [id number] Tristin Powell 1940 M Date Provider Department Center 07/17/2024 RUSSEL ADAIR Family History Problem Relation Age of Onset Coronary artery disease Other Hyperlipidemia Other Hypertension Other Family Status - Relation Status Age at Other [place] ALL BASIC METABOLIC PANELon 07-11-2024 Anion gap [Moles/Vol] 15.1 mmol/L [facility] Calcium [Mass/Vol] 8.9 mg/dL 8.5 - 10. 1 mg/dL [facility] Chloride [Moles/Vol] 108 mmol/L High 98 - 10 7 mmol/L [facility] CO2 [Moles/Vol] 27.3 mmol/L 21.0 - 32.0 mmol/L [facility] Creatinine [Mass/Vol] 1.32 mg/dL High 0.70 - 1.30 mg/dL [facility] GFR/1.73 sq M.predicted CKD-EPI (S/P/Bld) [Vol rate/Area] >60 >=60 mL/min/1.73m 2 [facility] Glucose [Mass/Vol] 94 mg/dL 74 - 106 mg/dL [facility] Interpretation and review of laboratory results Abnormal [facility] Potassium [Moles/Vol] 4.4 mmol/L 3.5 - 5.1 mmol/L [facility] Sodium [Moles/Vol] 146 mmol/L High 136 - 145 mmol/L [facility] TBH EGFR-NON AF MOZAMBICAN 52 Low >=60 mL/min/1.73m 2 [facility] Urea nitrogen [Mass/Vol] 15 mg/dL 7.0 - 18.0 mg/dL [facility] Urea nitrogen/Creatinine [Mass ratio] 11.4 mg/mg [facility] ALL CBC WITH AUTO DIFFon Erythrocyte distribution width (RBC) [Ratio] 13.9 % 11.0 - 15.0 % [facility] Hematocrit (Bld) [Volume fraction] 40.9 % Low 42.0 - 54.0 % [facility] Hemoglobin (Bld) [Mass/Vol] 13.9 g/dL Low 14.0 - 18.0 g/dL [facility] MCH (RBC) [Entitic mass] 31.1 pg 25.9 - 34.0 pg [facility] MCHC (RBC) [Mass/Vol] 34 g/dL 29.9 - 35.2 g/dL [facility] MCV (RBC) [Entitic vol] 91.5 fL 80.0 - 94.0 fL [facility] Platelet mean volume (Bld) [Entitic vol] 9.5 fL 9.5 - 13.5 fL [facility] TBH PLT 169 [facility] TBH RBC 4.47 Low [facility] TBH WBC 3.3 Low [facility] ALL SED RATEon 07-11-2024 TBH SED RATE 20 NINF [facility] MHPT DIFFERENTIALon 07-11-20 24 BASOPHILS ABS MANUAL 0 [facility] BASOPHILS PERCENT MANUAL 0 % Low 0.2 - 2.0 % [facility] Eosinophils (Bld) [#/Vol] 0.13 10*3/uL [facility] EOSINOPHILS PERCENT MANUAL 4 % 0.9 - 7.0 % [facility] Lymphocytes (Bld) [#/Vol] 0.59 10*3/uL Low [facility] LYMPHOCYTES PERCENT MANUAL 18 % Low 20.5 - 60.0 % [facility] Monocytes (Bld) [#/Vol] 0.52 10*3/uL [facility] MONOCYTES PERCENT MANUAL 16 % High 1.7 - 12.0 % [facility] SEGMENTED NEUT ABSOLUTE MANUAL 2.04 [facility] SEGMENTED NEUTROPHILS % MANUAL 62 43.0 - 75.0 [facility] No Panel Informationon 07-11 Interpretation and review of laboratory results Abnormal [facility] HPon 07-10-2024 [facility] Cardiology Interv al Pre-procedural H&P [...] were addressed and answered. Mabel Pino MD Assistant Administrator - PGY6 [facility] Tristin Powell is a 84 y.o. year old male patient being seen for 6 mo follow up CAD, PAD, AAA, HTN, and HLD. Had lipid panel Sep, 2023. He is now seeing vascular surgery in [place], Dr. Beaver. Problem List Patient Active Problem List Diagnosis Abdominal pain Chest pain Aortic valve regurgitation Mitral valve regurgitation Avascular necrosis of bone of hip (CMS/HCC) Community acquired pneumonia of left lower lobe of lung Contusion Hematoma of arm, left, initial encounter Coronary artery disease involving coronary bypass graft of [place] heart without angina pectoris Coronary artery disease involving [place] coronary artery of [place] heart without angina pectoris Coronary atherosclerosis Critical [...] instent restenosis. He then underwent CABG at [facility] in 2016 (CHAVEZ to diagonal, SVG [...] that could be (more content not included)... [place] Kirk 07-10-2024 ILIR Tristin Powell called stating he had a heart cath yesterday and he is having chest pain when he takes a deep breath and when he leans back. Chest pain is not severe. He asked if this was normal. Tia Vallejo CNP was notified. Per Tia Vallejo CNP. Lab orders of CBC, BMP, ESR and CRP. Limited Echo for chest pain R/O pericarditis. Notified [facility] to have echo and labs done at [place]. Called Tristin Powell explaining need for echo and labs. Instructed to go to ER if chest pain worsens. Normal [facility] ALL BASIC METABOLIC PANELon 07-03-2024 Anion gap [Moles/Vol] 13.4 mmol/L [facility] Calcium [Mass/Vol] 9.8 mg/dL 8.5 - 10. 1 mg/dL [facility] Chloride [Moles/Vol] 106 mmol/L 98 - 10 7 mmol/L [facility] CO2 [Moles/Vol] 27.4 mmol/L 21.0 - 32.0 mmol/L [facility] Creatinine [Mass/Vol] 1.33 mg/dL High 0.70 - 1.30 mg/dL [facility] GFR/1.73 sq M.predicted CKD-EPI (S/P/Bld) [Vol rate/Area] >60 >=60 mL/min/1.73m 2 [facility] Glucose [Mass/Vol] 110 mg/dL High 74 - 106 mg/dL [facility] Interpretation and review of laboratory results Abnormal [facility] Potassium [Moles/Vol] 4.8 mmol/L 3.5 - 5.1 mmol/L [facility] Sodium [Moles/Vol] 142 mmol/L 136 - 145 mmol/L [facility] TBH EGFR-NON AF MOZAMBICAN 51 Low >=60 mL/min/1.73m 2 [facility] Urea nitrogen [Mass/Vol] 16 mg/dL 7.0 - 18.0 mg/dL [facility] Urea nitrogen/Creatinine [Mass ratio] 12 mg/mg [facility] Healthcare Orders Onlyon 07-02-2024 Orders Only [id number] Tristin Powell 1940 M Date Provider Department Center 07/02/2024 MAIA WONG [facility] Family History Problem Relation Age of Onset Coronary artery disease Other Hyperlipidemia Other Hypertension Other Family Status - Relation Status Age at Other [place] Orders Onlyon 06-11-2024 Orders Only [id number] Tristin Powell 1940 [facility] Provider Department Center 06/11/2024 RUSSEL ADAIR Family History Problem Relation Age of Onset Coronary artery disease Other Hyperlipidemia Other Hypertension Other Family Status - Relation Status Age at Other [place] 36on 05-31-2024 35 Please let him know that I discussed our plan with Dr. Carvalho, recommend proceeding with cardiac cath given the bump in his heart enzymes recently. We want to make sure nothing significant has changed. This will also help with planning any vascular surgery in the future. Thanks! [place] Telephoneon 05-31-2024 Telephone [id number] Tristin Powell 1940 M [facility] Provider Department Center 05/31/2024 RUSSEL ADAIR Family History Problem Relation Age of Onset Coronary artery disease Other Hyperlipidemia Other Hypertension Other Family Status - Relation Status Age at Other [place] Office Visiton 05-28-2024 Follow-up visit [id number] Tristin Powell 1940 [facility] Department Center 05/28/2024 RUSSEL ADAIR Family History Problem Relation Age of Onset Coronary artery disease Other Hyperlipidemia Other Hypertension Other Family Status - Relation Status Age at Other Level of Service:47070 MA OFFICE/OUTPATIENT ESTABLISHED MOD MDM 30 MIN [place] ALL MAGNESIUMon 05-14-2024 Magnesium [Mass/Vol] 2.1 mg/dL 1.6 - 2 .4 mg/dL [facility] Basic Metab w/rfx MGon 05-14 Anion gap [Moles/Vol] 10 mmol/L Normal 9-16 [facility] Comment on above: Performed By: #### T ROPI, CBC, MG, BMPX #### [facility] [address] [place] [address] Control System Manager: Mary Astorga MD #### GLYHGB #### [address] [address] Control System Manager: Kale Orona MD BUN/CRE Ratio 16 Normal 9-20 [facility] Comment on above: Performed By: #### T ROPI, CBC, MG, BMPX #### [facility] [address] [place], [place] [id number] Control System Manager: Mary Astorga MD #### GLYHGB #### [address] [address] Control System Manager: Kale Orona MD Calcium [Mass/Vol] 9.3 mg/dL Normal 8.6-10.4 [facility] Comment on above: Performed By: #### T ROPI, CBC, MG, BMPX #### [facility] [address] [place] [address] [place] [address] Control System Manager: Mary Astorga MD #### GLYHGB #### [address] [address] Control System Manager: Kale Orona MD Chloride [Moles/Vol] 106 mmol/L Normal 98-107 [facility] Comment on above: Performed By: #### T ROPI, CBC, MG, BMPX #### [facility] [address] [place] [address] Dr. [place], [place] [id number] Control System Manager: Mary Astorga MD #### GLYHGB #### [address] [address] Control System Manager: Kale Orona MD CO2 [Moles/Vol] 23 mmol/L Normal 20-31 [facility] Comment on above: Performed By: #### T ROPI, CBC, MG, BMPX #### [facility] [address] [place] [address] [place], [place] [phone] Control System Manager: Mary Astorga MD #### GLYHGB #### [address] [id number] Control System Manager: Kale Orona MD Creatinine [Mass/Vol] 1.1 mg/dL Normal 0.70-1.20 [facility] Comment on above: Performed By: #### T YARIEL CBC, MG, BMPX #### [facility] [address] [place], [place] [id number] Control System Manager: Mary Astorga MD #### GLYHGB #### [address] [id number] Control System Manager: Kale Orona MD GFR/1.73 sq M.predicted among non-blacks MDRD (S/P/Bld) [Vol rate/Area] 65 mL/min/{1.73_m2} Normal >60 [facility] Comment on above: Result Comment: These [...] #### T YARIEL CBC, MG, BMPX #### [address] [place], [place] 734[address]83 Control System Manager: Mary Astorga MD #### GLYHGB #### [address] [address] Control System Manager: Kale Orona MD Glucose [Mass/Vol] 90 mg/dL Normal 74-99 [facility] Comment on above: Performed By: #### T YARIEL, CBC, MG, BMPX #### [address] [place], [place] [phone] Control System Manager: Mary Astorga MD #### GLYHGB #### [address] [id number] Control System Manager: Kale Orona MD Potassium [Moles/Vol] 4.4 mmol/L Normal 3.7-5.3 [facility] Comment on above: Performed By: #### T YARIEL, CBC, MG, BMPX #### [facility] [address] [place] [address] Control System Manager: Mary Astorga MD #### GLYHGB #### [address] [phone] Control System Manager: Kale Orona MD Sodium [Moles/Vol] 139 mmol/L Normal 136-145 [facility] Comment on above: Performed By: #### T YARIEL, CBC, MG, BMPX #### [facility] [address] [place] [address] [place] [address] Control System Manager: Mary Astorga MD #### GLYHGB #### [address] [id number] Control System Manager: Kale Orona MD Urea nitrogen [Mass/Vol] 18 mg/dL Normal 8-23 [facility] Comment on above: Performed By: #### T YARIEL, CBC, MG, BMPX #### [facility] [address] [place] [address] [place] [address] Control System Manager: Mary Astorga MD #### GLYHGB #### [address] [address] Control System Manager: Kale Orona MD Brain Natri. Peptideon 05-14 Natriuretic peptide B (Bld) [Mass/Vol] 980 pg/mL High 0-450 [facility] Comment on above: Performed By: #### L IPR #### [address] [address] Control System Manager: Kale Orona MD CBCon 05-14-2024 Erythrocyte distribution width (RBC) [Ratio] 14.8 % High 11.8-14.4 [facility] Comment on above: Performed By: #### T ROPI, CBC, MG, BMPX #### [address] [place] [id number] Control System Manager: Mary Astorga MD #### GLYHGB #### [address] [phone] Control System Manager: Kale Orona MD Hematocrit (Bld) [Volume fraction] 38.8 % Low 40.7-50.3 [facility] Comment on above: Performed By: #### T ROPI, CBC, MG, BMPX #### [address] [place] [id number] Control System Manager: Mary Astorga MD #### GLYHGB #### [place] [phone] Control System Manager: Kale Orona MD Hemoglobin (Bld) [Mass/Vol] 13.2 g/dL Normal 13.0-17.0 [facility] Comment on above: Performed By: #### T ROPI, CBC, MG, BMPX #### [address] [place] [id number] Control System Manager: Mary Astorga MD #### GLYHGB #### [place] [id number] Control System Manager: Kale Orona MD MCH (RBC) [Entitic mass] 30.6 pg Normal 25.2-33.5 [facility] Comment on above: Performed By: #### T ROPI, CBC, MG, BMPX #### [address] [place] [address] Control System Manager: Mary Astorga MD #### GLYHGB #### [address] [phone] Control System Manager: Kale Orona MD MCHC (RBC) [Mass/Vol] 34.0 g/dL Normal 28.4-34.8 [facility] Comment on above: Performed By: #### T ROPI, CBC, MG, BMPX #### [address] [place] [id number] Control System Manager: Mary Astorga MD #### GLYHGB #### [address] [phone] Control System Manager: Kale Orona MD MCV (RBC) [Entitic vol] 89.8 fL Normal 82.6-102.9 [facility] Comment on above: Performed By: #### T MARKI, CBC, MG, BMPX #### [address] [place] [phone] Control System Manager: aMry Astorga MD #### GLYHGB #### [place] [phone] Control System Manager: Kale Orona MD NRBC Automated 0.0 per 100 WBC Normal 0.0 [facility] Comment on above: Performed By: #### Latricia SALDIVAR, CBC, MG, BMPX #### [address] [place] [address] Control System Manager: Mary Astorga MD #### GLYHGB #### [place] [id number] Control System Manager: Kale Orona MD Platelet mean volume (Bld) [Entitic vol] 9.8 fL Normal 8.1-13.5 [facility] Comment on above: Performed By: #### T ROPI, CBC, MG, BMPX #### [address] [place] [address] Control System Manager: Mary Astorga MD #### GLYHGB #### [address] [phone] Control System Manager: Kale Orona MD Platelets (Bld) [#/Vol] 153 10*3/uL Normal 138-453 [facility] Comment on above: Performed By: #### T YARIEL, CBC, MG, BMPX #### [facility] [address] [place], [place] [phone] Control System Manager: Mary Astorga MD #### GLYHGB #### [place] [address] [place], [place] [phone] Control System Manager: Kale Orona MD RBC (Bld) [#/Vol] 4.32 10*6/uL Normal 4.21-5.77 [facility] Comment on above: Performed By: #### T YARIEL, CBC, MG, BMPX #### [facility] [address] [place], [place] [phone] Control System Manager: Mary Astorga MD #### GLYHGB #### [place] [address]19837 [place] [address] Control System Manager: Kale Orona MD WBC (Bld) [#/Vol] 4.0 10*3/uL Normal 3.5-11.3 [facility] Comment on above: Performed By: #### T YARIEL, CBC, MG, BMPX #### [facility] [address] [place], [place] [phone] Control System Manager: Mary Astorga MD #### GLYHGB #### [place] [address]19838 [place] [address] Control System Manager: Kale Orona MD [facility] TROPONIN Ion 05-14-2024 Interpretation and review of laboratory results Abnormal [facility] MHPT TROPONIN, HIGH SENS 31 ng/L High 0 - 22 ng/L [facility] Comment on above: High Sensitivity Tro ponin values cannot be compared with other Troponin methodologies. HMHP BASIC METABOLIC PANEL R EFLEX MGon 05-14-2024 Anion gap [Moles/Vol] 10 mmol/L 9 - 16 mmol/L [facility] Calcium [Mass/Vol] 9.3 mg/dL 8.6 - 10. 4 mg/dL [facility] Chloride [Moles/Vol] 106 mmol/L 98 - 10 7 mmol/L [facility] CO2 [Moles/Vol] 23 mmol/L 20 - 31 mmol/L [facility] Creatinine [Mass/Vol] 1.1 mg/dL 0.70 - 1.20 mg/dL [facility] Glucose [Mass/Vol] 90 mg/dL 74 - 99 mg/dL [facility] BUN/CRE RATIO 16 9 - 20 [facility] EGFR 65 - PINF [facility] Comment on above: These results are not [...] [Moles/Vol] 4.4 mmol/L 3.7 - 5.3 mmol/L [facility] Sodium [Moles/Vol] 139 mmol/L 136 - 145 mmol/L [facility] Urea nitrogen [Mass/Vol] 18 mg/dL 8 - 23 mg/dL [facility] Hemoglobin A1Con 05-14-2024 Glucose [Mass/Vol] 117 mg/dL Normal [facility] Comment on above: Result Comment: The ADA and AACC recommend providing the estimated average glucose result to permit better patient understanding of their HBA1c result. Performed By: #### T ROPI, CBC, MG, BMPX #### [facility] [address] [place] [address] [place] [address] Control System Manager: Mary Astorga MD #### GLYHGB #### [facility] [address] [place] [address] Control System Manager: Kale Orona MD HbA1c (Bld) [Mass fraction] 5.7 % Normal 4.0-6.0 [facility] Comment on above: Performed By: #### T ROPI, CBC, MG, BMPX #### [facility] [address] [place] [address] Control System Manager: Mary Astorga MD #### GLYHGB #### [address] [address] Control System Manager: Kale Orona MD Lipid Profileon 05-14-2024 Cholesterol [Mass/Vol] 131 mg/dL Normal 0-199 [facility] Comment on above: Result Comment: Cholesterol Guidelines: <200 Desirable 200-240 Borderline >240 Undesirable Performed By: #### L IPR #### [address] [address] Control System Manager: Kale Orona MD Cholesterol in HDL [Mass/Vol] 41 mg/dL Normal >40 [facility] Comment on above: Result Comment: HDL Guidelines: <40 Undesirable 40-59 Borderline >59 Desirable Performed By: #### L IPR #### [address] [address] Control System Manager: Kale Orona MD Cholesterol in LDL [Mass/Vol] 73 mg/dL Normal 0-100 [facility] Comment on above: Result Comment: LDL Guidelines: <100 Desirable 100-129 Near to/above Desirable 130-159 Borderline >159 Undesirable Direct (measured) LDL and calculated LDL are not interchangeable tests. Performed By: #### L IPR #### [address] [address] Control System Manager: Kale Orona MD Cholesterol in VLDL [Mass/Vol] 17 mg/dL Normal [facility] Comment on above: Performed By: #### L IPR #### [facility] [address] [place] [address] Control System Manager: Kale Orona MD Cholesterol.total/Chol esterol in HDL [Mass ratio] 3.0 {ratio} Normal [facility] Comment on above: Performed By: #### L IPR #### [address] [address] Control System Manager: Kale Orona MD Triglyceride [Mass/Vol] 85 mg/dL Normal <150 [facility] Comment on above: Result Comment: Triglyceride Guidelines: <150 Desirable 150-199 Borderline 200-499 High >499 Very high Based on AHA Guidelines for fasting triglyceride, May 2012. Performed By: #### L IPR #### [address] [address] Control System Manager: Kale Orona MD Magnesiumon 05-14-2024 Magnesium [Mass/Vol] 2.1 mg/dL Normal 1.6-2.4 [facility] Comment on above: Performed By: #### T ROPI, CBC, MG, BMPX #### [facility] [address] [place] [address] Control System Manager: Mary Astorga MD #### GLYHGB #### [address] [phone] Control System Manager: Kale Orona MD No Panel Informationon 05-14 Original Ordering Provider: RAFAELA POLO [facility] Troponinon 05-14-2024 Troponin, High Sens 28 ng/L High 0-22 [facility] Comment on above: Result Comment: High Sensitivity Troponin values cannot be compared with other Troponin methodologies. Performed By: #### L IPR #### [address] [address] Control System Manager: Kale Orona MD Troponin, High Sens 31 ng/L High 0-22 [facility] Comment on above: Result Comment: High Sensitivity Troponin values cannot be compared with other Troponin methodologies. Performed By: #### T ROPI, CBC, MG, BMPX #### [facility] [address] [place] [address] Control System Manager: Mary Astorga MD #### GLYHGB #### [address] [phone] Control System Manager: Kale Orona MD ALL PROTIME/INRon 05-13-2024 Interpretation and review of laboratory results [facility] Comment on above: Therapeutic Range: Moderate Anticoagulant Intensity: INR = 2.0-3.0 High Anticoagulant Intensity: INR = 2.5-3.5 MH[facility] PROTHROMBIN TIME 14.8 [facility] Original Ordering Provider: RAFAELA JOHN [facility] Basic Metab w/rfx MGon 05-13 Anion gap [Moles/Vol] 11 mmol/L Normal 9-16 [facility] Comment on above: Performed By: #### B MPX, PT, CBC #### [facility] [address] [place] [address] Control System Manager: Mary Astorga MD BUN/CRE Ratio 16 Normal 9-20 [facility] Comment on above: Performed By: #### B MPX, PT, CBC #### [facility] [address] [place], [place] [phone] Control System Manager: Mary Astorga MD Calcium [Mass/Vol] 9.5 mg/dL Normal 8.6-10.4 [facility] Comment on above: Performed By: #### B MPX, PT, CBC #### [address] [place], [place] 5623183 Control System Manager: Mary Astorga MD Chloride [Moles/Vol] 105 mmol/L Normal 98-107 [facility] Comment on above: Performed By: #### B MPX, PT, CBC #### [facility] [address] [place], [place] 7079983 Control System Manager: Mary Astorga MD CO2 [Moles/Vol] 23 mmol/L Normal 20-31 [facility] Comment on above: Performed By: #### B MPX, PT, CBC #### [facility] [address] [place] [address] Control System Manager: Mary Astorga MD Creatinine [Mass/Vol] 1.0 mg/dL Normal 0.70-1.20 [facility] Comment on above: Performed By: #### B MPX, PT, CBC #### [facility] [address] [place] [address] Control System Manager: Mary Astorga MD GFR/1.73 sq M.predicted among non-blacks MDRD (S/P/Bld) [Vol rate/Area] 73 mL/min/{1.73_m2} Normal >60 [facility] Comment on above: Result Comment: These [...] By: #### B MPX, PT, CBC #### [facility] [address] [place] [address] Control System Manager: Mary Astorga MD Glucose [Mass/Vol] 96 mg/dL Normal 74-99 [facility] Comment on above: Performed By: #### B MPX, PT, CBC #### [facility] [address] [place] [address] Control System Manager: Mary Astorga MD Potassium [Moles/Vol] 4.2 mmol/L Normal 3.7-5.3 [facility] Comment on above: Performed By: #### B MPX, PT, CBC #### [facility] [address] [place] [address] Control System Manager: Mary Astorga MD Sodium [Moles/Vol] 139 mmol/L Normal 136-145 [facility] Comment on above: Performed By: #### B MPX, PT, CBC #### [facility] [address] [place] [address] Control System Manager: Mary Astorga MD Urea nitrogen [Mass/Vol] 16 mg/dL Normal 8-23 [facility] Comment on above: Performed By: #### B MPX, PT, CBC #### [facility] [address] [place] [address] Control System Manager: Mary Astorga MD CBCon 05-13-2024 Erythrocyte distribution width (RBC) [Ratio] 14.7 % High 11.8-14.4 [facility] Comment on above: Performed By: #### L IPR #### [address] [address] Control System Manager: Kale Orona MD Hematocrit (Bld) [Volume fraction] 40.3 % Low 40.7-50.3 [facility] Comment on above: Performed By: #### L IPR #### [address] [address] Control System Manager: Kale Orona MD Hemoglobin (Bld) [Mass/Vol] 13.9 g/dL Normal 13.0-17.0 [facility] Comment on above: Performed By: #### L IPR #### [address] [address] Control System Manager: Kale Orona MD MCH (RBC) [Entitic mass] 31.0 pg Normal 25.2-33.5 [facility] Comment on above: Performed By: #### L IPR #### [address] [address] Control System Manager: Kale Orona MD MCHC (RBC) [Mass/Vol] 34.5 g/dL Normal 28.4-34.8 [facility] Comment on above: Performed By: #### L IPR #### [address] [address] Control System Manager: Kale Orona MD MCV (RBC) [Entitic vol] 89.8 fL Normal 82.6-102.9 [facility] Comment on above: Performed By: #### L IPR #### [address] [place] [address] Control System Manager: Kale Orona MD NRBC Automated 0.0 per 100 WBC Normal 0.0 [facility] Comment on above: Performed By: #### L IPR #### [address] [address] Control System Manager: Kale Orona MD Platelet mean volume (Bld) [Entitic vol] 9.8 fL Normal 8.1-13.5 [facility] Comment on above: Performed By: #### L IPR #### [address] [address] Control System Manager: Kale Orona MD Platelets (Bld) [#/Vol] 154 10*3/uL Normal 138-453 [facility] Comment on above: Performed By: #### L IPR #### [address] [address] Control System Manager: Kale Orona MD RBC (Bld) [#/Vol] 4.49 10*6/uL Normal 4.21-5.77 [facility] Comment on above: Performed By: #### L IPR #### [address] [address] Control System Manager: Kale Orona MD WBC (Bld) [#/Vol] 4.0 10*3/uL Normal 3.5-11.3 [facility] Comment on above: Performed By: #### L IPR #### [address] [address] Control System Manager: Kale Orona MD PTon 05-13-2024 INR Coag (PPP) [Relative time] 1.2 {INR} Normal [facility] Comment on above: Result Comment: Therapeutic Range: Moderate Anticoagulant Intensity: INR = 2.0-3.0 High Anticoagulant Intensity: INR = 2.5-3.5 Performed By: #### B MPX, PT, CBC #### [facility] [address] [place], [place] [id number] Control System Manager: Mary Astorga MD PT Coag (PPP) [Time] 14.8 s High 11.7-14.1 [facility] Comment on above: Performed By: #### B MPX, PT, CBC #### [facility] [address] [place], [place] [id number] Control System Manager: Mary Astorga MD Troponinon 05-13-2024 Troponin, High Sens 26 ng/L High 0-22 [facility] Comment on above: Result Comment: High Sensitivity Troponin values cannot be compared with other Troponin methodologies. Performed By: #### T ROPI #### [facility] [address] [place], [place] [id number] Control System Manager: Mary Astorga MD Brain Natri. Peptideon 05-12 Natriuretic peptide B (Bld) [Mass/Vol] 729 pg/mL High 0-450 [facility] Comment on above: Performed By: #### L IPR #### [address] [address] Control System Manager: Kale Orona MD CBC with Diffon 05-12-2024 Abs. Basophil 0.03 k/uL Normal 0.00-0.20 [facility] Comment on above: Performed By: #### L IPR #### [address] [address] Control System Manager: Kale Orona MD Abs.Imm.Granulocyte <0.03 Normal 0.00-0.30 [facility] Comment on above: Performed By: #### L IPR #### [address] [address] Control System Manager: Kale Orona MD Abs.Neutrophil (Seg) 2.22 k/uL Normal 1.50-8.10 [facility] Comment on above: Performed By: #### L IPR #### [address] [address] Control System Manager: Kale Orona MD Basophils/100 WBC (Bld) 1 % Normal 0-2 [facility] Comment on above: Performed By: #### L IPR #### [address] [address] Control System Manager: Kale Orona MD Eosinophils (Bld) [#/Vol] 0.11 10*3/uL Normal 0.00-0.44 [facility] Comment on above: Performed By: #### L IPR #### [address] [address] Control System Manager: Kale Orona MD Eosinophils/100 WBC (Bld) 3 % Normal 1-4 [facility] Comment on above: Performed By: #### L IPR #### [address] [address] Control System Manager: Kale Orona MD Erythrocyte distribution width (RBC) [Ratio] 14.7 % High 11.8-14.4 [facility] Comment on above: Performed By: #### L IPR #### [address] [address] Control System Manager: Kale Orona MD Hematocrit (Bld) [Volume fraction] 38.8 % Low 40.7-50.3 [facility] Comment on above: Performed By: #### L IPR #### [address] [address] Control System Manager: Kale Orona MD Hemoglobin (Bld) [Mass/Vol] 13.3 g/dL Normal 13.0-17.0 [facility] Comment on above: Performed By: #### L IPR #### [address] [address] Control System Manager: Kale Orona MD Immature granulocytes/100 WBC (Bld) 1 % High 0 [facility] Comment on above: Performed By: #### L IPR #### [address] [address] Control System Manager: Kale Orona MD Lymphocytes (Bld) [#/Vol] 0.61 10*3/uL Low 1.10-3.70 [facility] Comment on above: Performed By: #### L IPR #### [address] [address] Control System Manager: Kale Orona MD Lymphocytes/100 WBC (Bld) 17 % Low 24-43 [facility] Comment on above: Performed By: #### L IPR #### [address] [address] Control System Manager: Kale Orona MD MCH (RBC) [Entitic mass] 31.0 pg Normal 25.2-33.5 [facility] Comment on above: Performed By: #### L IPR #### [place] [address] Control System Manager: Kale Orona MD MCHC (RBC) [Mass/Vol] 34.3 g/dL Normal 28.4-34.8 [facility] Comment on above: Performed By: #### L IPR #### [address] [address] Control System Manager: Kale Orona MD MCV (RBC) [Entitic vol] 90.4 fL Normal 82.6-102.9 [facility] Comment on above: Performed By: #### L IPR #### [address] [address] Control System Manager: Kale Orona MD Monocytes (Bld) [#/Vol] 0.59 10*3/uL Normal 0.10-1.20 [facility] Comment on above: Performed By: #### L IPR #### [address] [address] Control System Manager: Kale Orona MD Monocytes/100 WBC (Bld) 17 % High 3-12 [facility] Comment on above: Performed By: #### L IPR #### [address] [place] [address] Control System Manager: Kale Orona MD Neutrophil (Seg) 61 % Normal 36-65 [facility] Comment on above: Performed By: #### L IPR #### [address] [address] Control System Manager: Kale Orona MD NRBC Automated 0.0 per 100 WBC Normal 0.0 [facility] Comment on above: Performed By: #### L IPR #### [address] [address] Control System Manager: Kale Orona MD Platelet mean volume (Bld) [Entitic vol] 9.3 fL Normal 8.1-13.5 [facility] Comment on above: Performed By: #### L IPR #### [address] [address] Control System Manager: Kale Orona MD Platelets (Bld) [#/Vol] 153 10*3/uL Normal 138-453 [facility] Comment on above: Performed By: #### L IPR #### [address] [address] Control System Manager: Kale Orona MD RBC (Bld) [#/Vol] 4.29 10*6/uL Normal 4.21-5.77 [facility] Comment on above: Performed By: #### L IPR #### [address] [address] Control System Manager: Kale Orona MD WBC (Bld) [#/Vol] 3.6 10*3/uL Normal 3.5-11.3 [facility] Comment on above: Performed By: #### L IPR #### [address] [address] Control System Manager: Kale Orona MD CTA CHEST ABDOMEN PELVIS [...] Randall Almaraz MD 05/12/24 Final result Normal [facility] Comp Metabolic Profon 2023 Albumin [Mass/Vol] 3.8 g/dL Normal 3.5-5.2 [facility] Comment on above: Performed By: #### L IPR #### [address] [address] Control System Manager: Kale Orona MD Albumin/Glob Ratio 1.5 Normal 1.0-2.5 [facility] Comment on above: Performed By: #### L IPR #### [address] [address] Control System Manager: Kale Orona MD Alkaline Phos 92 U/L Normal 40-129 [facility] Comment on above: Performed By: #### L IPR #### [address] [address] Control System Manager: Kale Orona MD ALT [Catalytic activity/Vol] 15 U/L Normal 10-50 [facility] Comment on above: Performed By: #### L IPR #### [address] [address] Control System Manager: Kale Orona MD Anion gap [Moles/Vol] 11 mmol/L Normal 9-16 [facility] Comment on above: Performed By: #### L IPR #### [address] [place] [address] Control System Manager: Kale Orona MD AST [Catalytic activity/Vol] 24 U/L Normal 10-50 [facility] Comment on above: Performed By: #### L IPR #### [address] [address] Control System Manager: Kale Orona MD Bilirubin [Mass/Vol] 0.6 mg/dL Normal 0.00-1.20 [facility] Comment on above: Performed By: #### L IPR #### [address] [place] [address] Control System Manager: Kale Orona MD BUN/CRE Ratio 17 Normal 9-20 [facility] Comment on above: Performed By: #### L IPR #### [address] [address] Control System Manager: Kale Orona MD Calcium [Mass/Vol] 9.2 mg/dL Normal 8.6-10.4 [facility] Comment on above: Performed By: #### L IPR #### [address] [address] Control System Manager: Kale Orona MD Chloride [Moles/Vol] 106 mmol/L Normal 98-107 [facility] Comment on above: Performed By: #### L IPR #### [address] [address] Control System Manager: Kale Orona MD CO2 [Moles/Vol] 22 mmol/L Normal 20-31 [facility] Comment on above: Performed By: #### L IPR #### [address] [address] Control System Manager: Kale Orona MD Creatinine [Mass/Vol] 1.1 mg/dL Normal 0.70-1.20 [facility] Comment on above: Performed By: #### L IPR #### [address] [address] Control System Manager: Kale Orona MD GFR/1.73 sq M.predicted among non-blacks MDRD (S/P/Bld) [Vol rate/Area] 69 mL/min/{1.73_m2} Normal >60 [facility] Comment on above: Result Comment: These [...] secretion. Performed By: #### L IPR #### [facility] [address] [place] [address] Control System Manager: Kale Orona MD Glucose [Mass/Vol] 127 mg/dL High 74-99 [facility] Comment on above: Performed By: #### L IPR #### [facility] [address] [place] [address] Control System Manager: Kale Orona MD Potassium [Moles/Vol] 4.6 mmol/L Normal 3.7-5.3 [facility] Comment on above: Performed By: #### L IPR #### [facility] [address] [place] [address] Control System Manager: Kale Orona MD Protein [Mass/Vol] 6.3 g/dL Low 6.6-8.7 [facility] Comment on above: Performed By: #### L IPR #### [facility] [address] [place] [address] Control System Manager: Kale Orona MD Sodium [Moles/Vol] 139 mmol/L Normal 136-145 [facility] Comment on above: Performed By: #### L IPR #### [facility] [address] [place] [address] Control System Manager: Kale Orona MD Urea nitrogen [Mass/Vol] 19 mg/dL Normal 8-23 [facility] Comment on above: Performed By: #### L IPR #### [facility] [address] [place] [address] Control System Manager: Kale Orona MD Troponinon 05-12-2024 Troponin, High Sens 25 ng/L High 0-22 [facility] Comment on above: Result Comment: High Sensitivity Troponin values cannot be compared with other Troponin methodologies. Performed By: #### L IPR #### [facility] [address] [place] [address] Control System Manager: Kale Orona MD Troponin, High Sens 26 ng/L High 0-22 [facility] Comment on above: Result Comment: High Sensitivity Troponin values cannot be compared with other Troponin methodologies. Performed By: #### L IPR #### [facility] [address] [place] [address] Control System Manager: Kale Orona MD XR CHEST PORTABLEon 05-12-20 [...] Elyssa Pino MD 05/12/24 Final result Normal [facility] Office Visiton 04-24-2024 Follow-up visit [id number] Tristin Powell 1940 M Date Provider Department Center 04/24/2024 RUSSEL ADAIR [facility] Family History Problem Relation Age of Onset Coronary artery disease Other Hyperlipidemia Other Hypertension Other Family Status - Relation Status Age at Other Level of Service:92019 MA OFFICE/OUTPATIENT ESTABLISHED MOD MDM 30 MIN Normal [facility] Screenson 12-29-2023 Screens [id number] Normal [facility] Patient Educationon 12-26-19 Patient Education Oncology Prostate [...] under a microscope. This is called the Austin score and the total score can range from 6?10, indicating how likely it is that the cancer will spread (metastasize) to other parts of the body. The higher the score, the greater the likelihood that the cancer will spread. ? Austin 6 or lower: This indicates that the cancer cells look similar to normal prostate cells (well differentiated). ? Austin 7: This indicates that the cancer cells look somewhat similar to normal prostate cells (moderately differentiated). ? Aleksandr 8, 9, or 10: This indicates [...] external be (more content not included)... Normal [facility] Provider Letteron 12-26-2023 Provider Letter FLASH LOVELACE, [address] [place] [address] Re: TRISTIN POWELL Date of : [address] ALBANIA DIAZ, TRISTIN ALEMAN was evaluated at [facility] 12/26/2023 13:00:00 As this patient has been [...] Thanks! Provider Signature: Brenna Mosquera PA-C Physician [employer] Engineer [facility] [address] [place] [address] Normal [facility] Office/Clinic Noteon 12-26-2023 Urology Office/Clinic Note [...] E&M of Est. Patient Low 20-29 Min [address]1877 Urnls Dip Stick Auto w/o Microscopy POC 87274 2. BPH with urinary obstruction (N40.1: Benign prostatic hyperplasia with lower urinary tract symptoms) IPSS 7 (5) QOL 1 Pt is currently taking no bladder/prostate medication and is highly satisfied with overall symptom control. No indication for treatment at this time. Continue to monitor. Ordered: Complex E&M Add on G2211 E&M of Est. Patient Low 20-29 Min 66927 3. Erectile dysfunction (N52.9: Male erectile dysfunction, unspecified) last ov: pt requesting sildenafil 100mg. was on it previously through another provider and worked well. 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 today: pt never called after last ov. no concerns reported today. does not wish to pursue Sildenafil at this time. Ordered: Complex E&M Add on G2211 E&M of Est. Patient Low 20-29 Min [address] Other obstructive and reflux uropathy (N13.8: Other obstructive and reflux uropathy) Offered continued scheduled follow up with our clinic vs following up PRN. Pt prefers the latter. We will ensure PCP continues to order annual PSA. Letter sent. Follow-up With When Contact Information BRENNA MOSQUERA PA-C, URL Only if needed [phone] [place] [address] Business (1) Additional Instructions: Patient [...] virus vaccine, i (more content not included)... [facility] Comment on above: Result Comment: Elec tronically Signed By: JAY CARRANZA, BRENNA Bazan\.br\Date and Time Signed: 12/26/23 13:33 EDT Lab Reportson 12-22-2023 Lab Reports [id number] 0TIFF [facility] Alanine aminotransferase [En zymatic activity/volume] in Serum or PlasmaOrdered By: Eliezer Carvalho on 10-17-2023 ALT [Catalytic activity/Vol] 15 U/L 7-52 [facility] Albumin [Mass/volume] in Ser um or Plasma by Bromocresol green (BCG) dye binding methoOrdered By: Eliezer Carvalho on 10-17-2023 Albumin BCG dye [Mass/Vol] 4.0 g/dL 3.5-5.7 [facility] Alkaline phosphatase [Enzyma tic activity/volume] in Serum or PlasmaOrdered By: Eliezer Carvalho on 10-17-2023 ALP [Catalytic activity/Vol] 72 U/L 34-104 [facility] Aspartate aminotransferase [ Enzymatic activity/volume] in Serum or PlasmaOrdered By: Eliezer Carvalho on 10-17-2023 AST [Catalytic activity/Vol] 21 U/L 13-39 [facility] Basophils Auto (Bld) [#/Vol] Ordered By: Eliezer Carvalho on 10-17-2023 Basophils (Bld) [#/Vol] 0.0 10*3/uL 0.0-0.2 [facility] Basophils/100 WBC Auto (Bld) Ordered By: Eliezer Carvalho on 10-17-2023 Basophils/100 WBC (Bld) 0.7 % . [facility] Bilirubin.total [Mass/volume ] in Serum or PlasmaOrdered By: Eliezer Carvalho on 10-17-2023 Bilirubin [Mass/Vol] 0.7 mg/dL 0.3-1.0 [facility] Calcium [Mass/volume] in Ser um or PlasmaOrdered By: Eliezer Carvalho on 10-17-2023 Calcium [Mass/Vol] 9.4 mg/dL 8.6-10.3 [facility] Carbon dioxide, total [Moles /volume] in Serum or PlasmaOrdered By: Eliezer Carvalho on 10-17-2023 CO2 [Moles/Vol] 24.6 mmol/L 21.0-31.0 [facility] Chloride [Moles/volume] in S roger or PlasmaOrdered By: Eliezer Carvalho on 10-17-2023 Chloride [Moles/Vol] 108 mmol/L 98-107 [facility] Cholesterol [Mass/volume] in Serum or PlasmaOrdered By: Eliezer Carvalho on 10-17-2023 Cholesterol [Mass/Vol] 142 mg/dL 140-200 [facility] Comment on above: Chol less than 200 m g/dl low riskChol 201-239 mg/dl borderline riskChol 240 mg/dl and greater high risk Cholesterol in LDL Calc [Mas s/Vol]Ordered By: Eliezer Carvalho on 10-17-2023 Cholesterol in LDL [Mass/Vol] 79 mg/dL 0-100 [facility] Comment on above: LDL ATP III CLASSIFI CATIONLDL less than 100 mg/dL OptimalLDL 100-129 mg/dL Near or above optimalLDL 130-159 mg/dL Borderline highLDL 160-189 mg/dL HighLDL greater than 189 mg/dL Very high Cholesterol in VLDL Calc [Ma ss/Vol]Ordered By: Eliezer Carvalho on 10-17-2023 Cholesterol in VLDL [Mass/Vol] 21 mg/dL [facility] Creatinine [Mass/volume] in Serum or PlasmaOrdered By: Eliezer Carvalho on 10-17-2023 Creatinine [Mass/Vol] 1.01 mg/dL 0.70-1.30 [facility] Eosinophils Auto (Bld) [#/Vo l]Ordered By: Eliezer Carvalho on 10-17-2023 Eosinophils (Bld) [#/Vol] 0.1 10*3/uL 0.0-0.45 [facility] Eosinophils/100 WBC Auto (Bl d)Ordered By: Eliezer Carvalho on 10-17-2023 Eosinophils/100 WBC (Bld) 3.4 % . [facility] Erythrocyte distribution wid th Auto (RBC) [Ratio]Ordered By: Eliezer Carvalho on 10-17-2023 Erythrocyte distribution width (RBC) [Ratio] 14.4 % 12.0-14.8 [facility] Globulin Calc (S) [Mass/Vol] Ordered By: Eliezer Carvalho on 10-17-2023 Globulin (S) [Mass/Vol] 2.6 g/dL [facility] Glucose [Mass/volume] in Ser um or PlasmaOrdered By: Eliezer Carvalho on 10-17-2023 Glucose [Mass/Vol] 82 mg/dL 70-100 [facility] Comment on above: ADA recommended refe rence rangeRandom Glucose Reference Range is dependent on time and content of last meal. Glucose of more than 200 mg/dL in a nonstressed, ambulatory subject supports the diagnosis of Diabetes Mellitus. Hematocrit Auto (Bld) [Volum e fraction]Ordered By: Eliezer Carvalho on 10-17-2023 Hematocrit (Bld) [Volume fraction] 39.3 % 38.8-50.0 [facility] Hemoglobin [Mass/volume] in BloodOrdered By: Eliezer Carvalho on 10-17-2023 Hemoglobin (Bld) [Mass/Vol] 13.5 g/dL 13.0-17.0 [facility] Leukocytes [#/volume] correc maximilian for nucleated erythrocytes in Blood by Automated counOrdered By: Eliezer Carvalho on 10-17-2023 WBC corrected for nucl RBC Auto (Bld) [#/Vol] 3.5 10*3/uL 4.1-10.5 [facility] Lymphocytes Auto (Bld) [#/Vo l]Ordered By: Eliezer Carvalho on 10-17-2023 Lymphocytes (Bld) [#/Vol] 0.8 10*3/uL 1.00-4.8 [facility] Lymphocytes/100 WBC Auto (Bl d)Ordered By: Eliezer Carvalho on 10-17-2023 Lymphocytes/100 WBC (Bld) 22.4 % . [facility] MCH Auto (RBC) [Entitic mass ]Ordered By: Eliezer Carvalho on 10-17-2023 MCH (RBC) [Entitic mass] 30.9 pg 27.5-35.2 [facility] MCHC Auto (RBC) [Mass/Vol]Or dered By: Eliezer Carvalho on 10-17-2023 MCHC (RBC) [Mass/Vol] 34.3 g/dL 32.5-35.6 [facility] MCV Auto (RBC) [Entitic vol] Ordered By: Eliezer Carvalho on 10-17-2023 MCV (RBC) [Entitic vol] 90.1 fL 83.5-101 [facility] Monocytes Auto (Bld) [#/Vol] Ordered By: Eliezer Carvalho on 10-17-2023 Monocytes (Bld) [#/Vol] 0.6 10*3/uL 0.0-0.8 [facility] Monocytes/100 WBC Auto (Bld) Ordered By: Eliezer Carvalho on 10-17-2023 Monocytes/100 WBC (Bld) 15.8 % . [facility] Neutrophils Auto (Bld) [#/Vo l]Ordered By: Eliezer Carvalho on 10-17-2023 Neutrophils (Bld) [#/Vol] 2.0 10*3/uL 1.8-7.7 [facility] Neutrophils/100 WBC Auto (Bl d)Ordered By: Eliezer Carvalho on 10-17-2023 Neutrophils/100 WBC (Bld) 57.7 % . [facility] No Panel InformationOrdered By: Eliezer Carvalho on 10-17-2023 Estimated GFR (CKD-EPI) > 60.0 mL/Min [facility] Creatinine Clearance (Chem N/A [facility] Nucleated erythrocytes [Pres ence] in Blood by Automated countOrdered By: Eliezer Carvalho on 10-17-2023 Nucleated RBC Auto Ql (Bld) 0.4 /100{WBC} 0-0.5 [facility] Platelet mean volume Auto (B ld) [Entitic vol]Ordered By: Eliezer Carvalho on 10-17-2023 Platelet mean volume (Bld) [Entitic vol] 7.8 fL 6.6-10.1 [facility] Platelets Auto (Bld) [#/Vol] Ordered By: Eliezer Carvalho on 10-17-2023 Platelets (Bld) [#/Vol] 170 10*3/uL 150-450 [facility] Potassium [Moles/volume] in Serum or PlasmaOrdered By: Eliezer Carvalho on 10-17-2023 Potassium [Moles/Vol] 4.7 mmol/L 3.5-5.1 [facility] Protein [Mass/volume] in Ser um or PlasmaOrdered By: Eliezer Carvalho on 10-17-2023 Protein [Mass/Vol] 6.6 g/dL 6.4-8.9 [facility] RBC Auto (Bld) [#/Vol]Ordere d By: Eliezer Carvalho on 10-17-2023 RBC (Bld) [#/Vol] 4.36 10*6/uL 3.90-5.[address] [facility] Serum or plasma albumin/glob ulin mass ratioOrdered By: Eliezer Carvalho on 10-17-2023 Albumin/Globulin [Mass ratio] 1.5 {ratio} [facility] Serum or plasma anion gap de terminationOrdered By: Eliezer Carvalho on 10-17-2023 Anion gap [Moles/Vol] 11.1 mmol/L 6.0-15.0 [facility] Serum or plasma high density lipoprotein (HDL) cholesterol measurementOrdered By: Eliezer Carvalho on 10-17-2023 Cholesterol in HDL [Mass/Vol] 42 mg/dL 23- [facility] Comment on above: HDL CHOL ATP-III CLA SSIFICATION Cardiovascular RiskHDL > or equal to 60 mg/dL LOWHDL < 40 mg/dL HIGH Serum or plasma total choles terol/high density lipoprotein (HDL) cholesterol mass ratOrdered By: Eliezer Carvalho on 10-17-2023 Cholesterol.total/Chol esterol in HDL [Mass ratio] 3.4 {ratio} <5.0 [facility] Sodium [Moles/volume] in Ser um or PlasmaOrdered By: Eliezer Carvalho on 10-17-2023 Sodium [Moles/Vol] 139 mmol/L 136-145 [facility] Triglyceride [Mass/volume] i n Serum or PlasmaOrdered By: Eliezer Carvalho on 10-17-2023 Triglyceride [Mass/Vol] 105 mg/dL 0-149 [facility] Comment on above: TRIG ATP III CLASSIF ICATIONTRIG less than 150 mg/dL NormalTRIG 150-199 mg/dL Borderline highTRIG 200-500 mg/dL High TRIG greater than 500 mg/dL Very highStandard traceable to the Center for Disease Conrtrol and Prevention (CDC) test method. Urea nitrogen [Mass/volume] in Serum or PlasmaOrdered By: Eliezer Carvalho on 10-17-2023 Urea nitrogen [Mass/Vol] 15 mg/dL 7- [facility] WBC Auto (Bld) [#/Vol]Ordere d By: Eliezer Carvalho on 10-17-2023 WBC (Bld) [#/Vol] 3.5 10*3/uL 4.1-10.5 [facility] Creatinine [Mass/volume] in Serum or PlasmaOrdered By: Cristian Beaver on 10-12-2023 Creatinine [Mass/Vol] 1.11 mg/dL 0.70-1.30 [facility] No Panel InformationOrdered By: Cristian Beaver on 10-12-2023 Estimated GFR (CKD-EPI) > 60.0 mL/Min [facility] Creatinine Clearance (Chem 64.55 [facility] Urea nitrogen [Mass/volume] in Serum or PlasmaOrdered By: Cristian Beaver on 10-12-2023 Urea nitrogen [Mass/Vol] 18 mg/dL 7 [facility] PROF CHEM 8 (BAS METB)on Anion gap [Moles/Vol] 10.5 mmol/L Normal [facility] Comment on above: Performed By: #### B MP #### [facility] [address] [address] [address] Benedict Edmondson Calcium [Mass/Vol] 9.5 mg/dL Normal 8.5-10.1 [facility] Comment on above: Performed By: #### B MP #### [facility] [address] [address] [address] Benedict Edmondson Chloride [Moles/Vol] 106 mmol/L Normal 98-107 [facility] Comment on above: Performed By: #### B MP #### [facility] [address] [address] [address] Benedict Edmondson CO2 [Moles/Vol] 28.8 mmol/L Normal 21.0-32.0 [facility] Comment on above: Performed By: #### B MP #### [facility] [address] [address] [address] Benedict Edmondson Creatinine [Mass/Vol] 1.28 mg/dL Normal 0.70-1.30 [facility] Comment on above: Performed By: #### B MP #### [facility] [address] [address] [address] Benedict Edmondson EGFR-AF MOZAMBICAN >60 Normal >=60 [facility] Comment on above: Performed By: #### B MP #### [facility] [address] [address] [address] Benedict Edmondson EGFR-NON AF MOZAMBICAN 54 mL/min/1.73m2 Critically low >=60 [facility] Comment on above: Performed By: #### B MP #### [facility] [address] [address] [address] Benedict Edmondson Glucose [Mass/Vol] 97 mg/dL Normal 74-106 [facility] Comment on above: Performed By: #### B MP #### [facility] [address] [address] [address] Benedict Edmondson Potassium [Moles/Vol] 4.3 mmol/L Normal 3.5-5.1 [facility] Comment on above: Performed By: #### B MP #### [facility] [address] [address] [address] Benedict Edmondson Sodium [Moles/Vol] 141 mmol/L Normal 136-145 [facility] Comment on above: Performed By: #### B MP #### [facility] [address] [address] [address] Benedict Edmondson Urea nitrogen [Mass/Vol] 17.0 mg/dL Normal 7.0-18.0 [facility] Comment on above: Performed By: #### B MP #### [facility] [address] [address] [address] Benedict Edmondson Urea nitrogen/Creatinine [Mass ratio] 13.3 mg/mg Normal [facility] Comment on above: Performed By: #### B MP #### [facility] [id number] Benedict Edmondson PROF 14(COMP METB)on 023 Albumin [Mass/Vol] 3.1 g/dL Critically low 3.4-5.0 [facility] Comment on above: Performed By: #### C MP #### [facility] [address] [address] [address] Benedict Edmondson Albumin/Globulin [Mass ratio] 0.8 {ratio} Normal [facility] Comment on above: Performed By: #### C MP #### [facility] [address] [address] [address] Benedict Edmondson ALP [Catalytic activity/Vol] 83 U/L Normal 46-116 [facility] Comment on above: Performed By: #### C MP #### [facility] [address] [address] [address] Benedict Edmondson ALT [Catalytic activity/Vol] 29 U/L Normal 16-63 [facility] Comment on above: Performed By: #### C MP #### [facility] [address] [address] [address] Benedict Edmondson Anion gap [Moles/Vol] 12.9 mmol/L Normal [facility] Comment on above: Performed By: #### C MP #### [facility] [address] [place] [address] Dr. Benedict Edmondson AST [Catalytic activity/Vol] 31 U/L Normal 15-37 [facility] Comment on above: Performed By: #### C MP #### [facility] [address] [address] [address] Benedict Edmondson Bilirubin [Mass/Vol] 1.0 mg/dL Normal 0.2-1.0 [facility] Comment on above: Performed By: #### C MP #### [facility] [address] [address] [address] Benedict Edmondson Calcium [Mass/Vol] 9.2 mg/dL Normal 8.5-10.1 [facility] Comment on above: Performed By: #### C MP #### [facility] [address] [address] [address] Benedict Edmondson Chloride [Moles/Vol] 102 mmol/L Normal 98-107 [facility] Comment on above: Performed By: #### C MP #### [facility] [address] [address] [address] Benedict Edmodnson CO2 [Moles/Vol] 27.0 mmol/L Normal 21.0-32.0 [facility] Comment on above: Performed By: #### C MP #### [facility] [address] [address] [address] Benedict Edmondson Creatinine [Mass/Vol] 2.03 mg/dL Critically high 0.70-1.30 [facility] Comment on above: Performed By: #### C MP #### [facility] [address] [address] [address] Benedict Edmondson EGFR-AF MOZAMBICAN 38 mL/min/1.73m2 Critically low >=60 [facility] Comment on above: Performed By: #### C MP #### [facility] [address] [address] [address] Benedict Edmondson EGFR-NON AF MOZAMBICAN 32 mL/min/1.73m2 Critically low >=60 [facility] Comment on above: Performed By: #### C MP #### [facility] [address] [address] [address] Benedict Edmondson Globulin (S) [Mass/Vol] 3.8 g/dL Normal [facility] Comment on above: Performed By: #### C MP #### [facility] [address] [address] [address] Benedict Edmondson Glucose [Mass/Vol] 94 mg/dL Normal 74-106 [facility] Comment on above: Performed By: #### C MP #### [facility] [address] [address] [address] Benedict Edmondson Potassium [Moles/Vol] 4.9 mmol/L Normal 3.5-5.1 [facility] Comment on above: Performed By: #### C MP #### [facility] [address] [address] [address] Benedict Edmondson Protein [Mass/Vol] 6.9 g/dL Normal 6.4-8.2 [facility] Comment on above: Performed By: #### C MP #### [facility] [address] [address] [address] Benedict Edmondson Sodium [Moles/Vol] 137 mmol/L Normal 136-145 [facility] Comment on above: Performed By: #### C MP #### [facility] [address] [place], [place] [address] Dr. Benedict Edmondson Urea nitrogen [Mass/Vol] 34.0 mg/dL Critically high 7.0-18.0 [facility] Comment on above: Performed By: #### C MP #### [facility] [address] [address] [address] Benedict Edmondson Urea nitrogen/Creatinine [Mass ratio] 16.7 mg/mg Normal [facility] Comment on above: Performed By: #### C MP #### [facility] [address] [address] [address] Benedict Edmondson Bacteria identified Cx Nom ( Bld)on 11-08-2022 Interpretation and review of laboratory results Normal [facility] CBC Auto Differentialon 10-26 Basophils (Bld) [#/Vol] 0.02 10*3/uL [facility] Basophils/100 WBC (Bld) 0.4 % [facility] Eosinophils (Bld) [#/Vol] 0.21 10*3/uL [facility] Eosinophils/100 WBC (Bld) 3.9 % [facility] Erythrocyte distribution width (RBC) [Entitic vol] 13.4 % 11.6 - 14.8 % [facility] Hematocrit (Bld) [Volume fraction] 33.6 % Low 41.0 - 53.0 % [facility] Hemoglobin (Bld) [Mass/Vol] 11.5 g/dL Low 13.5 - 17.5 g/dL [facility] Immature granulocytes (Bld) [#/Vol] 0.02 10*3/uL [facility] Immature granulocytes/100 WBC (Bld) 0.40 % [facility] Comment on above: The IG parameter is the percentage of metamyelocytes, myelocytes and promyelocytes. An immature granulocyte count (IG) of 1% or more suggests the possibility of infection, an IG count of 3% is very likely related to an infection. Interpretation and review of laboratory results Abnormal [facility] Lymphocytes (Bld) [#/Vol] 0.62 10*3/uL Low [facility] Lymphocytes/100 WBC (Bld) 11.4 % [facility] MCH (RBC) [Entitic mass] 30.7 pg 26.0 - 34.0 pg [facility] MCHC (RBC) [Mass/Vol] 34.2 g/dL 31.0 - 37.0 g/dL [facility] MCV (RBC) [Entitic vol] 89.8 fL 80.0 - 100.0 fL [facility] Monocytes (Bld) [#/Vol] 0.78 10*3/uL [facility] Monocytes/100 WBC (Bld) 14.4 % [facility] Neutrophils (Bld) [#/Vol] 3.78 10*3/uL [facility] Neutrophils/100 WBC (Bld) 69.5 % [facility] Nucleated RBC (Bld) [#/Vol] 0.00 10*3/uL [facility] Nucleated RBC/100 WBC (Bld) [Ratio] 0.0 % [facility] Platelet mean volume (Bld) [Entitic vol] 9.7 fL 9.4 - 12.4 fL [facility] Platelets (Bld) [#/Vol] 170 10*3/uL [facility] RBC (Bld) [#/Vol] 3.74 10*6/uL [facility] WBC (Bld) [#/Vol] 5.43 10*3/uL [facility] an d Antimicrobial susceptibilityon 11-08-2022 Bacteria identified Cx Nom (Bld) No [facility] Level[facility] 11-08-2022 Magnesium [Mass/Vol] 2.3 mg/dL 1.6 - 2 .4 mg/dL [facility] Magnesium [Mass/Vol]on 11-08 Interpretation and review of laboratory results Normal [facility] Renal function 2000 panelon 11-08-2022 Albumin [Mass/Vol] 3.3 g/dL 3.2 - 5.2 g/dL [facility] Anion gap [Moles/Vol] 13 mmol/L 10 - 2 0 mmol/L [facility] Calcium [Mass/Vol] 9.3 mg/dL 8.4 - 10. 2 mg/dL [facility] Chloride [Moles/Vol] 104 mmol/L 98 - 10 8 mmol/L [facility] Creatinine [Mass/Vol] 1.16 mg/dL 0.80 - 1.30 mg/dL [facility] GFR/1.73 sq M.predicted CKD-EPI (S/P/Bld) [Vol rate/Area] 62 - PINF [facility] Comment on above: Estimated GFR was ca lculated using the 2020 CKD-EPI creatinine equation. Glucose [Mass/Vol] 114 mg/dL High 65 - 99 mg/dL [facility] HCO3 [Moles/Vol] 24 mmol/L 21 - 32 mmol/L [facility] Interpretation and review of laboratory results Abnormal [facility] Phosphate [Mass/Vol] 2.7 mg/dL 2.3 - 3 .7 mg/dL [facility] Potassium [Moles/Vol] 4.1 mmol/L 3.5 - 5.1 mmol/L [facility] Sodium [Moles/Vol] 137 mmol/L 135 - 145 mmol/L [facility] Urea nitrogen [Mass/Vol] 24 mg/dL 8 - 25 mg/dL [facility] Urea nitrogen/Creatinine [Mass ratio] 20.7 mg/mg High 10.0 - 20.0 [facility] has implemented the eGFR calculation approach that does not have a coefficient for race that conforms to the NKF-ASN Task Force Recommendations. [facility] XR Chest 1 Viewon 11-08-2022 1. [...] pneumothorax or acute osseous change otherwise suspected. [facility] Workstation ID: [id number] [employer] EXAMINATION: XR CHEST PA/AP 11/08/2022 8:22 AM [...] A total of two images were obtained. [employer] Romulo Case M D - 11/08/2022 EXAMINATION: [...] pneumothorax or acute osseous change otherwise suspected. [facility] Workstation ID: [id number] [facility] Radiology Study observation (narrative) [facility] XR Chest 1 ViewOrdered By: Larisa Case on 11-08-2022 [facility] Work Phone: CBC Auto Differentialon 10-26 Basophils (Bld) [#/Vol] 0.02 10*3/uL [facility] Basophils/100 WBC (Bld) 0.3 % [facility] Eosinophils (Bld) [#/Vol] 0.18 10*3/uL [facility] Eosinophils/100 WBC (Bld) 3.0 % [facility] Erythrocyte distribution width (RBC) [Entitic vol] 13.7 % 11.6 - 14.8 % [facility] Hematocrit (Bld) [Volume fraction] 34.1 % Low 41.0 - 53.0 % [facility] Hemoglobin (Bld) [Mass/Vol] 11.3 g/dL Low 13.5 - 17.5 g/dL [facility] Immature granulocytes (Bld) [#/Vol] 0.05 10*3/uL [facility] Immature granulocytes/100 WBC (Bld) 0.80 % [facility] Comment on above: The IG parameter is the percentage of metamyelocytes, myelocytes and promyelocytes. An immature granulocyte count (IG) of 1% or more suggests the possibility of infection, an IG count of 3% is very likely related to an infection. Interpretation and review of laboratory results Abnormal [facility] Lymphocytes (Bld) [#/Vol] 0.68 10*3/uL Low [facility] Lymphocytes/100 WBC (Bld) 11.4 % [facility] MCH (RBC) [Entitic mass] 30.1 pg 26.0 - 34.0 pg [facility] MCHC (RBC) [Mass/Vol] 33.1 g/dL 31.0 - 37.0 g/dL [facility] MCV (RBC) [Entitic vol] 90.9 fL 80.0 - 100.0 fL [facility] Monocytes (Bld) [#/Vol] 0.74 10*3/uL [facility] Monocytes/100 WBC (Bld) 12.4 % [facility] Neutrophils (Bld) [#/Vol] 4.31 10*3/uL [facility] Neutrophils/100 WBC (Bld) 72.1 % [facility] Nucleated RBC (Bld) [#/Vol] 0.00 10*3/uL [facility] Nucleated RBC/100 WBC (Bld) [Ratio] 0.0 % [facility] Platelet mean volume (Bld) [Entitic vol] 9.8 fL 9.4 - 12.4 fL [facility] Platelets (Bld) [#/Vol] 157 10*3/uL [facility] RBC (Bld) [#/Vol] 3.75 10*6/uL [facility] eah WBC (Bld) [#/Vol] 5.98 10*3/uL [facility] 12 Leadon 11-07-2022 Atrial Rate 83 BPM [facility] P-R Interval 192 ms [facility] Q-T Interval 398 ms [facility] QRS Duration 98 ms [facility] QTC Calculation (Bezet) 467 ms [facility] R Harvard 30 degrees [facility] T [place] 20 degrees [facility] Ventricular Rate 83 BPM [facility] Sinus rhythm with occasional Premature ventricular complexes and Premature atrial complexes Otherwise normal ECG Confirmed by YAW DIAZ, [facility] ([id number]) on 11/07/2022 11:37:24 AM MUSE [facility] Magnesium Levelon 11-07-2022 Magnesium [Mass/Vol] 2.1 mg/dL 1.6 - 2 .4 mg/dL [facility] Magnesium [Mass/Vol]on 11-07 Interpretation and review of laboratory results Normal [facility] Renal function 2000 panelon 11-07-2022 Albumin [Mass/Vol] 3.1 g/dL Low 3.2 - 5.2 g/dL [facility] Anion gap [Moles/Vol] 16 mmol/L 10 - 2 0 mmol/L [facility] Calcium [Mass/Vol] 8.8 mg/dL 8.4 - 10. 2 mg/dL [facility] Chloride [Moles/Vol] 101 mmol/L 98 - 10 8 mmol/L [facility] Creatinine [Mass/Vol] 1.34 mg/dL High 0.80 - 1.30 mg/dL [facility] GFR/1.73 sq M.predicted CKD-EPI (S/P/Bld) [Vol rate/Area] 53 Low - PINF [facility] Comment on above: Estimated GFR was ca lculated using the 2020 CKD-EPI creatinine equation. Glucose [Mass/Vol] 102 mg/dL High 65 - 99 mg/dL [facility] HCO3 [Moles/Vol] 23 mmol/L 21 - 32 mmol/L [facility] Interpretation and review of laboratory results Abnormal [facility] Phosphate [Mass/Vol] 3.1 mg/dL 2.3 - 3 .7 mg/dL [facility] Potassium [Moles/Vol] 3.8 mmol/L 3.5 - 5.1 mmol/L [facility] Sodium [Moles/Vol] 136 mmol/L 135 - 145 mmol/L [facility] Urea nitrogen [Mass/Vol] 26 mg/dL High 8 - 25 mg/dL [facility] Urea nitrogen/Creatinine [Mass ratio] 19.4 mg/mg 10.0 - 20.0 [facility] has implemented the eGFR calculation approach that does not have a coefficient for race that conforms to the NKF-ASN Task Force Recommendations. [facility] TSH DL <= 0.005 mIU/L Qnon 0 11-07-2022 Interpretation and review of laboratory results Normal [facility] TSH Qn 1.75 m[IU]/L [facility] Troponin x 2 (Now and Repeat in 3 hours)on 11-07-2022 Interp Troponin T Delta Change Probable non-acute cardiac injury or late presentation of acute injury. [facility] Interpretation and review of laboratory results Abnormal [facility] Troponin T 51 ng/L Critically high NINF - 22 ng/L [facility] Troponin T Delta % -7 % <20% of Baseline Troponin [facility] Troponin x 2 (Now and Repeat in 3 hours)Ordered By: Eloina Lama on 11-07-2022 Interpretation and review of laboratory results Abnormal [facility] Troponin T 55 ng/L Critically high NINF - 22 ng/L [facility] Troponin T Interpretation Possible acute cardiac injury. [facility] Bacteria identified Aer cx N om (Sput)Ordered By: Thania Tierney on 11-06-2022 Microscopic observation Gram stain Nom (Sput) Rare WBC [facility] Microscopic observation Gram stain Nom (Sput) Many Mixed Cameron [facility] Microscopic observation Gram stain Nom (Sput) Many Epithelial Cells [facility] CBC Auto Differentialon 10-26 Basophils (Bld) [#/Vol] 0.02 10*3/uL [facility] Basophils/100 WBC (Bld) 0.3 % [facility] Eosinophils (Bld) [#/Vol] 0.20 10*3/uL [facility] Eosinophils/100 WBC (Bld) 2.8 % [facility] Erythrocyte distribution width (RBC) [Entitic vol] 13.7 % 11.6 - 14.8 % [facility] Hematocrit (Bld) [Volume fraction] 37.7 % Low 41.0 - 53.0 % [facility] Hemoglobin (Bld) [Mass/Vol] 12.5 g/dL Low 13.5 - 17.5 g/dL [facility] Comment on above: Peripheral smear rev iewed manually Immature granulocytes (Bld) [#/Vol] 0.03 10*3/uL [facility] Immature granulocytes/100 WBC (Bld) 0.40 % [facility] Comment on above: The IG parameter is the percentage of metamyelocytes, myelocytes and promyelocytes. An immature granulocyte count (IG) of 1% or more suggests the possibility of infection, an IG count of 3% is very likely related to an infection. Interpretation and review of laboratory results Abnormal [facility] Lymphocytes (Bld) [#/Vol] 0.50 10*3/uL Low [facility] Lymphocytes/100 WBC (Bld) 7.1 % [facility] MCH (RBC) [Entitic mass] 29.9 pg 26.0 - 34.0 pg [facility] MCHC (RBC) [Mass/Vol] 33.2 g/dL 31.0 - 37.0 g/dL [facility] Comment on above: Cold Agglutinin pres ent MCV (RBC) [Entitic vol] 90.2 fL 80.0 - 100.0 fL [facility] Monocytes (Bld) [#/Vol] 0.66 10*3/uL [facility] Monocytes/100 WBC (Bld) 9.3 % [facility] Neutrophils (Bld) [#/Vol] 5.66 10*3/uL [facility] Neutrophils/100 WBC (Bld) 80.1 % [facility] Nucleated RBC (Bld) [#/Vol] 0.00 10*3/uL [facility] Nucleated RBC/100 WBC (Bld) [Ratio] 0.0 % [facility] Platelet mean volume (Bld) [Entitic vol] 9.9 fL 9.4 - 12.4 fL [facility] Platelets (Bld) [#/Vol] 156 10*3/uL [facility] RBC (Bld) [#/Vol] 4.18 10*6/uL [facility] WBC (Bld) [#/Vol] 7.07 10*3/uL [facility] Echocardiogram complete w co ntrastOrdered By: Obdulio Mack on 11-06-2022 EF 69.1148 % [facility] Work Phone: [facility] Work Phone: Echocardiogram complete w co ntraston 11-06-2022 Patient Info Name: TRISTIN POWELL Age: 82 years : 1940 Gender: Male Ht: 185 cm Wt: 113 kg BSA: 2.45 m2 HR: 85 bpm BP: 112 / 62 mmHg Technical Quality: Technically difficult Exam Date: 11/06/2022 11:02 AM Patient Status: Inpatient Point Of Care Technician: Jefferson Mckeon MHA, KIRILL Exam Type: ECHOCARDIOGRAM COMPLETE W CONTRAST Study Info Indications R06.00 - Dyspnea, unspecified - Evaluate LV function - Dyspnea Attending Physician: GARCIA, [facility] [id number] BMI: 32.98 kg/m2 Summary 1. Mild concentric [...] Annular TDI (more content not included)... FUJI Obdulio Mattson MD - 11/06/2022 Patient Info Name: TRISTIN POWELL Age: 82 years : 1940 Gender: Male Ht: 185 cm Wt: 113 kg BSA: 2.45 m2 HR: 85 bpm BP: 112 / 62 mmHg Technical Quality: Technically difficult Exam Date: 11/06/2022 11:02 AM Patient Status: Inpatient Point Of Care Technician: Jefferson Mckeon, DEMETRIS, [facility] Exam Type: ECHOCARDIOGRAM COMPLETE W CONTRAST Study Info Indications R06.00 - Dyspnea, unspecified - Evaluate LV function - Dyspnea Attending Physician: [facility] [id number] BMI: 32.98 kg/m2 Summary 1. Mild concentric [...] Value Normal ----- (more content not included)... [facility] Radiology Study observation (narrative) [facility] Magnesium Levelon 11-06-2022 Magnesium [Mass/Vol] 2.0 mg/dL 1.6 - 2 .4 mg/dL [facility] Magnesium [Mass/Vol]on 11-06 Interpretation and review of laboratory results Normal [facility] Renal function 2000 panelon 11-06-2022 Albumin [Mass/Vol] 3.3 g/dL 3.2 - 5.2 g/dL [facility] Anion gap [Moles/Vol] 16 mmol/L 10 - 2 0 mmol/L [facility] Calcium [Mass/Vol] 8.9 mg/dL 8.4 - 10. 2 mg/dL [facility] Chloride [Moles/Vol] 102 mmol/L 98 - 10 8 mmol/L [facility] Creatinine [Mass/Vol] 1.34 mg/dL High 0.80 - 1.30 mg/dL [facility] GFR/1.73 sq M.predicted CKD-EPI (S/P/Bld) [Vol rate/Area] 53 Low - PINF [facility] Comment on above: Estimated GFR was ca lculated using the 2020 CKD-EPI creatinine equation. Glucose [Mass/Vol] 141 mg/dL High 65 - 99 mg/dL [facility] H[facility]3 [Moles/Vol] 24 mmol/L 21 - 32 mmol/L [facility] Interpretation and review of laboratory results Abnormal [facility] Phosphate [Mass/Vol] 3.6 mg/dL 2.3 - 3 .7 mg/dL [facility] Potassium [Moles/Vol] 3.9 mmol/L 3.5 - 5.1 mmol/L [facility] Sodium [Moles/Vol] 138 mmol/L 135 - 145 mmol/L [facility] Urea nitrogen [Mass/Vol] 26 mg/dL High 8 - 25 mg/dL [facility] Urea nitrogen/Creatinine [Mass ratio] 19.4 mg/mg 10.0 - 20.0 [facility] has implemented the eGFR calculation approach that does not have a coefficient for race that conforms to the NKF-ASN Task Force Recommendations. [facility] Sputum Aerobic CultureOrdere d By: Thania Tierney on 11-06-2022 Bacteria identified Aer cx Nom (Sput) Normal [place] After 48 Hours [facility] CBC Auto Differentialon 10-26 Basophils (Bld) [#/Vol] 0.02 10*3/uL [facility] Basophils/100 WBC (Bld) 0.3 % [facility] Eosinophils (Bld) [#/Vol] 0.18 10*3/uL [facility] Eosinophils/100 WBC (Bld) 2.7 % [facility] Erythrocyte distribution width (RBC) [Entitic vol] 13.8 % 11.6 - 14.8 % [facility] Hematocrit (Bld) [Volume fraction] 33.8 % Low 41.0 - 53.0 % [facility] Hemoglobin (Bld) [Mass/Vol] 12.1 g/dL Low 13.5 - 17.5 g/dL [facility] Immature granulocytes (Bld) [#/Vol] 0.06 10*3/uL [facility] Immature granulocytes/100 WBC (Bld) 0.90 % [facility] Comment on above: The IG parameter is the percentage of metamyelocytes, myelocytes and promyelocytes. An immature granulocyte count (IG) of 1% or more suggests the possibility of infection, an IG count of 3% is very likely related to an infection. Interpretation and review of laboratory results Abnormal [facility] Lymphocytes (Bld) [#/Vol] 0.62 10*3/uL Low [facility] Lymphocytes/100 WBC (Bld) 9.3 % [facility] MCH (RBC) [Entitic mass] 32.9 pg 26.0 - 34.0 pg [facility] MCHC (RBC) [Mass/Vol] 35.8 g/dL 31.0 - 37.0 g/dL [facility] MCV (RBC) [Entitic vol] 91.8 fL 80.0 - 100.0 fL [facility] Monocytes (Bld) [#/Vol] 0.74 10*3/uL [facility] Monocytes/100 WBC (Bld) 11.1 % [facility] Neutrophils (Bld) [#/Vol] 5.06 10*3/uL [facility] Neutrophils/100 WBC (Bld) 75.7 % [facility] Nucleated RBC (Bld) [#/Vol] 0.00 10*3/uL [facility] Nucleated RBC/100 WBC (Bld) [Ratio] 0.0 % [facility] Platelet mean volume (Bld) [Entitic vol] 9.5 fL 9.4 - 12.4 fL [facility] Platelets (Bld) [#/Vol] 164 10*3/uL [facility] RBC (Bld) [#/Vol] 3.68 10*6/uL [facility] WBC (Bld) [#/Vol] 6.68 10*3/uL [facility] Magnesium Levelon 11-05-2022 Magnesium [Mass/Vol] 2.2 mg/dL 1.6 - 2 .4 mg/dL [facility] Magnesium [Mass/Vol]on 11-05 Interpretation and review of laboratory results Normal [facility] Renal function 2000 panelon 11-05-2022 Albumin [Mass/Vol] 3.1 g/dL Low 3.2 - 5.2 g/dL [facility] Anion gap [Moles/Vol] 16 mmol/L 10 - 2 0 mmol/L [facility] Calcium [Mass/Vol] 8.6 mg/dL 8.4 - 10. 2 mg/dL [facility] Chloride [Moles/Vol] 101 mmol/L 98 - 10 8 mmol/L [facility] Creatinine [Mass/Vol] 1.20 mg/dL 0.80 - 1.30 mg/dL [facility] GFR/1.73 sq M.predicted CKD-EPI (S/P/Bld) [Vol rate/Area] 60 - PINF [facility] Comment on above: Estimated GFR was ca lculated using the 2020 CKD-EPI creatinine equation. Glucose [Mass/Vol] 114 mg/dL High 65 - 99 mg/dL [facility] HCO3 [Moles/Vol] 22 mmol/L 21 - 32 mmol/L [facility] Interpretation and review of laboratory results Abnormal [facility] Phosphate [Mass/Vol] 4.3 mg/dL High 2.3 - 3 .7 mg/dL [facility] Potassium [Moles/Vol] 3.7 mmol/L 3.5 - 5.1 mmol/L [facility] Sodium [Moles/Vol] 135 mmol/L 135 - 145 mmol/L [facility] Urea nitrogen [Mass/Vol] 22 mg/dL 8 - 25 mg/dL [facility] Urea nitrogen/Creatinine [Mass ratio] 18.3 mg/mg 10.0 - 20.0 [facility] has implemented the eGFR calculation approach that does not have a coefficient for race that conforms to the NKF-ASN Task Force Recommendations. [facility] CBC Auto Differentialon 10-26 Basophils (Bld) [#/Vol] 0.01 10*3/uL [facility] Basophils/100 WBC (Bld) 0.2 % [facility] Eosinophils (Bld)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 [facility] Comment on above: Performed By: #### C MP #### [place] [address] Ph. [phone] Potassium [Moles/Vol] 4.5 mmol/L Normal 3.6-5.0 [facility] Comment on above: Performed By: #### C MP #### [place] [address] Ph. [phone] Protein [Mass/Vol] 6.8 g/dL Normal 6.3-8.2 [facility] Comment on above: Performed By: #### C MP #### [place] [address] Ph. [phone] Sodium [Moles/Vol] 135 mmol/L Normal 135-145 [facility] Comment on above: Performed By: #### C MP #### [place] [address] Ph. [phone] Urea nitrogen [Mass/Vol] 23 mg/dL High 9-20 [facility] Comment on above: Performed By: #### C MP #### [place] [address] Ph. [phone] DIFF REVIEWon 10-30-2022 DIFF REVIEW DIFFCOM: see comments Normal [facility] Comment on above: Order Comment: slide review rbc agglutination noted Performed By: #### D IFF, CBCAD #### [address] [address] Ph. [phone] Laboratory - Chemistry and C hemistry - [...] 23 mg/dL High 9 - 20 mg/dL [facility] - Hematology and Cell countson 10-30-2022 [...] detected Not Detected [facility] Bordetella Parapertussis ([id number]) Not detected Not Detected [facility] Bordetella Parapertussis [...] RSV by PCR Not detected Not Detected [facility] Diff Comment see comments [facility] slide review rbc agglutination noted [facility] Eosinophils Absolute 0.2 [facility] Interpretation and review of laboratory results Abnormal [facility] Lymphocytes Absolute 0.7 Low [facility] Monocytes Absolute 0.8 [facility] T Neutrophils Absolute 9.8 High [facility] resuts after 30 minutes of incubation at 37degree C possible cold rbc agglutination [facility] 1. Questionable left infrahilar infiltrate. 2. Slight bibasilar atelectasis. 3. Chronic changes and findings of COPD. [facility] EXAM: XR CHEST PORTABLE HISTORY: TECH [...] Report electronically signed by: Dr. Dashawn Dai [facility] Dashawn Dai, DO - 10/30/2022 EXAM: [...] 3. Chronic changes and findings of COPD. [place] Work Phone: GFR, Estimated 73 - PINF [facility] Comment on above: GFR calculated using CKD-EPI [...] Interpretation and review of laboratory results Abnormal [facility] Radiology Study observation (narrative) [facility] Work Phone: No Panel InformationOrdered By: Dashawn Dai on 10-30-2022 [facility] Work Phone: Respiratory Panelon 10-31-19 23 Adenovirus Not detected Normal Not Detected [facility] Comment on above: Performed By: #### R EDVIN #### [address] [address] Ph. [phone] Bordetella Parapertussis ([id number]) Not detected Normal Not Detected [facility] Comment on above: Performed By: #### Radha PARDO #### [address] [address] Ph. [phone] Bordetella Parapertussis (ptxP) Not detected Normal Not Detected [facility] Comment on above: Performed By: #### R EDVIN #### [address] [address] Ph. [phone] Chlamydia Pneumoniae Not detected Normal Not Detected [facility] Comment on above: Performed By: #### R ESPWLILIAMS #### [address] [address] Ph. [phone] Coronavirus 229E Not detected Normal Not Detected [facility] Comment on above: Performed By: #### R ESPWILLIAMS #### [address] [address] Ph. [phone] Coronavirus HKU1 Not detected Normal Not Detected [facility] Comment on above: Performed By: #### R ESPWILLIAMS #### [address] [address] Ph. [phone] Coronavirus NL63 Not detected Normal Not Detected [facility] Comment on above: Performed By: #### R ESPWILLIAMS #### [address] [address] Ph. [phone] Coronavirus OC43 Not detected Normal Not Detected [facility] Comment on above: Performed By: #### R ESPWILLIAMS #### [address] [address] Ph. [phone] COV-2 RP Not detected Normal Not Detected [facility] Comment on above: Performed By: #### R ESPWILLIAMS #### [address] [address] Ph. [phone] Human Metapneumovirus Not detected Normal Not Detected [facility] Comment on above: Performed By: #### R ESPWILLIAMS #### [address] [address] Ph. [phone] Human Rhinovirus/Enterovirus Not detected Normal Not Detected [facility] Comment on above: Performed By: #### R EDVIN #### [address] [address] Ph. [phone] Influenza A Not detected Normal Not Detected [facility] Comment on above: Performed By: #### R ESPWILLIAMS #### [address] [address] Ph. [phone] Influenza B Not detected Normal Not Detected [facility] Comment on above: Performed By: #### R ESPWILLIAMS #### [address] [address] Ph. [phone] Mycoplasma Pneumoniae Not detected Normal Not Detected [facility] Comment on above: Performed By: #### R ESPWILLIAMS #### [address] [address] Ph. [phone] Parainfluenza Virus 1 Not detected Normal Not Detected [facility] Comment on above: Performed By: #### R ESPAN #### [address] [address] Ph. [phone] Parainfluenza Virus 2 Not detected Normal Not Detected [facility] Comment on above: Performed By: #### R ESPAN #### [address] [address] Ph. [phone] Parainfluenza Virus 3 Not detected Normal Not Detected [facility] Comment on above: Performed By: #### R ESPAN #### [address] [address] Ph. [phone] Parainfluenza Virus 4 Not detected Normal Not Detected [facility] Comment on above: Performed By: #### R ESPAN #### [address] [address] Ph. [phone] Respiratory Syncytial Virus Not detected Normal Not Detected [facility] Comment on above: Performed By: #### R ESPAN #### [address] [address] Ph. [phone] XR CHEST PORTABLEon 10-31-19 XR CHEST PORTABLE [...] Dashawn Dai DO 10/30/22 Final result Normal [facility] XR Chest 2 Views*on 10-28-19 XR Chest 2 Views* Findings: Median sternotomy. Cardiopericardial silhouette normal. Aorta calcified and tortuous. Pulmonary vasculature normal. Lungs hyperinflated. Scarring left lung base. Mild blunting right costophrenic angle. IMPRESSION: Small right pleural effusion versus pleural thickening. Emphysema. Report reported and signed by Joe Davis on 10/27/2022 1621 Normal [facility] Special[facility] CT CHEST WITHOUT CONTRASTon 05-11-2022 CT [...] intrathoracic adenopathy. 6. Small sliding hiatal hernia. [email or web address] Workstation ID: [id number] Dictated by: CRISTIAN BURR on MonMay 12, 2022 1:59:45 PM EDT Transcribed by: CHARLIE PETERSEN on MonMay 12, 2022 2:42:35 PM EDT Finalized by: CRISTIAN BURR on MonMay 12, 2022 5:26:02 PM EDT [facility] Comment on above: Order Comment: Injur y/Trauma or Illness?:Illness/Other How long have you had these symptoms (acute/chronic)?:Chronic Reason for exam?:lung nodule f/u- pt has no current complaints Type of Exam?:Initial Additional signs and symptoms?:n/a Creatinine and Glomerular fi ltration rate.predicted panel (S/P/Bld)Ordered By: Cristian Beaver on 04-25-2022 Creatinine [Mass/Vol] 1.16 mg/dL 0.64-1.27 [facility] Estimated glomerular filtrat ion rate (GFR) non- AmericanOrdered By: Cristian Beaver on 04-25-2022 GFR/1.73 sq M.predicted among non-blacks MDRD (S/P/Bld) [Vol rate/Area] 60 mL/Min [facility] No Panel InformationOrdered By: Cristian Beaver on 04-25-2022 Estimated GFR () > 60 mL/Min [facility] Comment on above: GFR estimated refere nce range: According to KDOQI guidelines, <60 ml/min/1.73m2 is sufficient to diagnose a patient with chronic kidney disease. Pharmacy Creatinine Clearance (Chem 64.62 [facility] Serum or plasma urea nitroge n measurement (mass/volume)Ordered By: Cristian Beaver on 04-25-2022 Urea nitrogen [Mass/Vol] 14 mg/dL 9- [facility] COVID-19, MolecularOrdered B y: Dolapo Awoniyi on 04-15-2022 SARS-CoV-2 (COVID-19) RNA OREN+probe Ql (Resp) Not detected Not Detected [facility] CT Angiogram Abdominal Aorta With Lower Extremityon [...] 5. Chronic findings including severe pancolonic diverticulosis. [employer] Workstation ID: [id number] [employer] EXAMINATION: CT ANGIOGRAM ABDOMINAL AORTA WITH LOWER [...] common femoral artery and profunda. The left [place] SFA is occluded with extension through the entire length of the stented left superficial femoral artery. 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 Below the level of the distal anastomosis, there is continuous flow in the peroneal artery with no identified flow in the anterior posterior tibial arteries. Chicory Chad Weathers MD - 04/15/2022 EXAMINATION: CT [...] common femoral artery and profunda. The left [place] SFA is occluded with extension through the [...] 5. Chronic findings including severe pancolonic diverticulosis. [employer] Workstation ID: [id number] [facility] CT Angiogram Abdominal Aorta With Lower ExtremityOrdered By: Chad Lezama on 04-15-2022 [facility] Work Phone: SARS-CoV-2 (COVID-19) RNA NA A+probe Ql (Resp)Ordered By: Freddie Avila on 04-15-2022 Interpretation and review of laboratory results Normal [facility] This test was performed under the FDA's [...] at the following links: For Healthcare Providers: https://www.fda.gov/me wandy/271032/download For Patients: https://www.fda.gov/me wandy/358574/download [facility] Basic metabolic 2000 panelon 04-14-2022 Anion gap [Moles/Vol] 16 mmol/L 10 - 2 0 mmol/L [facility] Calcium [Mass/Vol] 9.5 mg/dL 8.4 - 10. 2 mg/dL [facility] Chloride [Moles/Vol] 105 mmol/L 98 - 10 8 mmol/L [facility] Creatinine [Mass/Vol] 0.96 mg/dL 0.80 - 1.30 mg/dL [facility] GFR/1.73 sq M.predicted CKD-EPI (S/P/Bld) [Vol rate/Area] 78 - PINF [facility] Comment on above: Estimated GFR was ca lculated using the 2020 CKD-EPI creatinine equation. Glucose [Mass/Vol] 93 mg/dL 65 - 99 mg/dL [facility] HCO3 [Moles/Vol] 24 mmol/L 21 - 32 mmol/L [facility] Interpretation and review of laboratory results Normal [facility] Potassium [Moles/Vol] 4.2 mmol/L 3.5 - 5.1 mmol/L [facility] Sodium [Moles/Vol] 141 mmol/L 135 - 145 mmol/L [facility] Urea nitrogen [Mass/Vol] 13 mg/dL 8 - 25 mg/dL [facility] Urea nitrogen/Creatinine [Mass ratio] 13.5 mg/mg 10 - 20 [facility] has implemented the eGFR calculation approach that does not have a coefficient for race that conforms to the NKF-ASN Task Force Recommendations. [facility] CBC Auto Differentialon 03-28 Basophils (Bld) [#/Vol] 0.03 10*3/uL [facility] Basophils/100 WBC (Bld) 0.5 % [facility] Eosinophils (Bld) [#/Vol] 0.11 10*3/uL [facility] Eosinophils/100 WBC (Bld) 1.9 % [facility] Erythrocyte distribution width (RBC) [Entitic vol] 13.7 % 11.6 - 14.8 % [facility] Hematocrit (Bld) [Volume fraction] 41.7 % 41 - 53 % [facility] Hemoglobin (Bld) [Mass/Vol] 14.0 g/dL 13.5 - 17.5 g/dL [facility] Immature granulocytes (Bld) [#/Vol] 0.03 10*3/uL [facility] Immature granulocytes/100 WBC (Bld) 0.50 % [facility] Comment on above: The IG parameter is the percentage of metamyelocytes, myelocytes and promyelocytes. An immature granulocyte count (IG) of 1% or more suggests the possibility of infection, an IG count of 3% is very likely related to an infection. Interpretation and review of laboratory results Abnormal [facility] Lymphocytes (Bld) [#/Vol] 0.85 10*3/uL Low [facility] Lymphocytes/100 WBC (Bld) 14.9 % [facility] MCH (RBC) [Entitic mass] 31.3 pg 26 - 34 pg [facility] MCHC (RBC) [Mass/Vol] 33.6 g/dL 31 - 37 g/dL [facility] Comment on above: Cold Agglutinin pres ent MCV (RBC) [Entitic vol] 93.3 fL 80 - 100 fL [facility] Monocytes (Bld) [#/Vol] 0.66 10*3/uL [facility] Monocytes/100 WBC (Bld) 11.6 % [facility] Neutrophils (Bld) [#/Vol] 4.01 10*3/uL [facility] Neutrophils/100 WBC (Bld) 70.6 % [facility] Nucleated RBC (Bld) [#/Vol] 0.00 10*3/uL [facility] Nucleated RBC/100 WBC (Bld) [Ratio] 0.0 % [facility] Platelet mean volume (Bld) [Entitic vol] 10.6 fL 9.4 - 12.4 fL [facility] Platelets (Bld) [#/Vol] 179 10*3/uL [facility] RBC (Bld) [#/Vol] 4.47 10*6/uL [facility] WBC (Bld) [#/Vol] 5.69 10*3/uL [facility] Aorta With Lower Extremityon 04-14-2022 Radiology Study observation (narrative) [facility] INR Coag (PPP) [Relative abi e]on 04-14-2022 Interpretation and review of laboratory results Normal [facility] PT Coag (PPP) [Time] 13.7 s [facility] During the induction phase of oral anticoagulation, the INR may not reflect the anticoagulation status of the patient. Therapeutic ranges for INR's are: Most clinical situations: INR 2.0-3.0 Mechanical Prosthetic Valve: INR 2.5-3.5 Critical: INR >5.0 [facility] Lavender Topon 04-14-2022 Extra Tube Hold for add-ons. [facility] Comment on above: Auto resulted. Peyman Yostn 04-14-2022 Extra Tube Hold for add-ons. [facility] Comment on above: Auto resulted. [facility] No Panel Informationon 04-14 Extra Tube Hold for add-ons. [facility] Comment on above: Auto resulted. [facility] PT/INRon 04-14-2022 INR Coag (PPP) [Relative time] 1.1 {INR} 0.8 - 1.1 [facility] US Doppler ankle/brachial in dexon 04-14-2022 Patient Info Name: TRISTIN POWELL Age: 82 years : 1940 Gender: Male Exam Date: 04/14/2022 9:45 PM Patient Status: Emergency Vp Clinical Research: Justyna Keita, INOCENCIO, RDMS Attending Physician: CARSON BROCK Indications I73.9 - Peripheral vascular disease, unspecified Procedure Description 00990 Limited bilateral noninvasive physiologic studies of upper [...] by Richard Proctor on 04/14/2022 10:23 PM FUJI SYNAPSE India Proctor, DO - 04/14/2022 Patient Info Name: TRISTIN POWELL Age: 82 years : 1940 Gender: Male Exam Date: 04/14/2022 9:45 PM Patient Status: Emergency Vp Clinical Research: Justyna Keita, INOCENCIO, RDMS Attending Physician: CARSON BROCK Indications I73.9 - Peripheral vascular disease, unspecified Procedure Description 26591 Limited bilateral noninvasive physiologic studies of upper [...] by Richard Proctor on 04/14/2022 10:23 PM [facility] Radiology Study observation (narrative) [facility] US Doppler ankle/brachial in dexOrdered By: Richard Proctor on 04-14-2022 [facility] Work Phone: US Venous, Unilat, Lower Ext [...] by Nabor Beard on 04/14/2022 1546 Normal [place] Medicare Compliance Auditor CREATININEon 01-28-2022 Creatinine [Mass/Vol] 1.32 mg/dL Critically high 0.70-1.30 [facility] Comment on above: Performed By: #### C LOULOU #### [facility] [address] [address] [address] Benedict Edmondson EGFR-AF MOZAMBICAN >60 Normal >=60 [facility] Comment on above: Performed By: #### C LOULOU #### [facility] [address] [address] [address] Benedict Edmondson EGFR-NON AF MOZAMBICAN >60 Normal >=60 [facility] Comment on above: Performed By: #### C LOULOU #### [facility] [address] [address] CHEST WO W [...] by: MIKEY CALDWELL Date: 2022-01-28 17:14 Normal [facility] CBC Auto Differentialon 12-27 Basophils (Bld) [#/Vol] 0.02 10*3/uL [facility] Basophils/100 WBC (Bld) 0.5 % [facility] Eosinophils (Bld) [#/Vol] 0.18 10*3/uL [facility] Eosinophils/100 WBC (Bld) 4.4 % [facility] Erythrocyte distribution width (RBC) [Entitic vol] 14.7 % 11.6 - 14.8 % [facility] Hematocrit (Bld) [Volume fraction] 35.0 % Low 41 - 53 % [facility] Hemoglobin (Bld) [Mass/Vol] 12.1 g/dL Low 13.5 - 17.5 g/dL [facility] Immature granulocytes (Bld) [#/Vol] 0.01 10*3/uL [facility] Immature granulocytes/100 WBC (Bld) 0.20 % [facility] Comment on above: The IG parameter is the percentage of metamyelocytes, myelocytes and promyelocytes. An immature granulocyte count (IG) of 1% or more suggests the possibility of infection, an IG count of 3% is very likely related to an infection. Interpretation and review of laboratory results Abnormal [facility] Lymphocytes (Bld) [#/Vol] 0.67 10*3/uL Low [facility] Lymphocytes/100 WBC (Bld) 16.4 % [facility] MCH (RBC) [Entitic mass] 32.5 pg 26 - 34 pg [facility] MCHC (RBC) [Mass/Vol] 34.6 g/dL 31 - 37 g/dL [facility] MCV (RBC) [Entitic vol] 94.1 fL 80 - 100 fL [facility] Monocytes (Bld) [#/Vol] 0.61 10*3/uL [facility] Monocytes/100 WBC (Bld) 15.0 % [facility] Neutrophils (Bld) [#/Vol] 2.59 10*3/uL [facility] Neutrophils/100 WBC (Bld) 63.5 % [facility] Nucleated RBC (Bld) [#/Vol] 0.00 10*3/uL [facility] Nucleated RBC/100 WBC (Bld) [Ratio] 0.0 % [facility] Platelet mean volume (Bld) [Entitic vol] 10.4 fL 9.4 - 12.4 fL [facility] Platelets (Bld) [#/Vol] 119 10*3/uL Low [facility] RBC (Bld) [#/Vol] 3.72 10*6/uL [facility] WBC (Bld) [#/Vol] 4.08 10*3/uL [facility] Basic metabolic 2000 panelon 01-20-2022 Anion gap [Moles/Vol] 13 mmol/L 10 - 2 0 mmol/L [facility] Calcium [Mass/Vol] 9.2 mg/dL 8.4 - 10. 2 mg/dL [facility] Chloride [Moles/Vol] 107 mmol/L 98 - 10 8 mmol/L [facility] Creatinine [Mass/Vol] 0.93 mg/dL 0.80 - 1.30 mg/dL [facility] GFR/1.73 sq M.predicted CKD-EPI (S/P/Bld) [Vol rate/Area] 76 - PINF [facility] Glucose [Mass/Vol] 89 mg/dL 65 - 99 mg/dL [facility] HCO3 [Moles/Vol] 25 mmol/L 21 - 32 mmol/L [facility] Interpretation and review of laboratory results Normal [facility] Potassium [Moles/Vol] 4.3 mmol/L 3.5 - 5.1 mmol/L [facility] Sodium [Moles/Vol] 141 mmol/L 135 - 145 mmol/L [facility] Urea nitrogen [Mass/Vol] 12 mg/dL 8 - 25 mg/dL [facility] Urea nitrogen/Creatinine [Mass ratio] 12.9 mg/mg 10 - 20 [facility] The eGFR should be used for monitoring renal function only and not for medication dosing. [facility] CBC Auto Differentialon 12-27 Basophils (Bld) [#/Vol] 0.02 10*3/uL [facility] Basophils/100 WBC (Bld) 0.4 % [facility] Eosinophils (Bld) [#/Vol] 0.18 10*3/uL [facility] Eosinophils/100 WBC (Bld) 3.8 % [facility] Erythrocyte distribution width (RBC) [Entitic vol] 15.0 % High 11.6 - 14.8 % [facility] Hematocrit (Bld) [Volume fraction] 41.6 % 41 - 53 % [facility] Hemoglobin (Bld) [Mass/Vol] 13.7 g/dL 13.5 - 17.5 g/dL [facility] Immature granulocytes (Bld) [#/Vol] 0.02 10*3/uL [facility] Immature granulocytes/100 WBC (Bld) 0.40 % [facility] Comment on above: The IG parameter is the percentage of metamyelocytes, myelocytes and promyelocytes. An immature granulocyte count (IG) of 1% or more suggests the possibility of infection, an IG count of 3% is very likely related to an infection. Interpretation and review of laboratory results Abnormal [facility] Lymphocytes (Bld) [#/Vol] 0.65 10*3/uL Low [facility] Lymphocytes/100 WBC (Bld) 13.7 % [facility] MCH (RBC) [Entitic mass] 31.5 pg 26 - 34 pg [facility] MCHC (RBC) [Mass/Vol] 32.9 g/dL 31 - 37 g/dL [facility] Comment on above: Cold Agglutinin pres ent MCV (RBC) [Entitic vol] 95.6 fL 80 - 100 fL [facility] Monocytes (Bld) [#/Vol] 0.57 10*3/uL [facility] Monocytes/100 WBC (Bld) 12.0 % [facility] Neutrophils (Bld) [#/Vol] 3.32 10*3/uL [facility] Neutrophils/100 WBC (Bld) 69.7 % [facility] Nucleated RBC (Bld) [#/Vol] 0.00 10*3/uL [facility] Nucleated RBC/100 WBC (Bld) [Ratio] 0.0 % [facility] Platelet mean volume (Bld) [Entitic vol] 10.9 fL 9.4 - 12.4 fL [facility] Platelets (Bld) [#/Vol] 132 10*3/uL Low [facility] RBC (Bld) [#/Vol] 4.35 10*6/uL [facility] Comment on above: Peripheral smear rev iewed manually WBC (Bld) [#/Vol] 4.76 10*3/uL [facility] Basic metabolic 2000 panelon 01-19-2022 Anion gap [Moles/Vol] 15 mmol/L 10 - 2 0 mmol/L [facility] Calcium [Mass/Vol] 8.4 mg/dL 8.4 - 10. 2 mg/dL [facility] Chloride [Moles/Vol] 108 mmol/L 98 - 10 8 mmol/L [facility] Creatinine [Mass/Vol] 1.08 mg/dL 0.80 - 1.30 mg/dL [facility] GFR/1.73 sq M.predicted CKD-EPI (S/P/Bld) [Vol rate/Area] 63 - PINF [facility] Glucose [Mass/Vol] 90 mg/dL 65 - 99 mg/dL [facility] HCO3 [Moles/Vol] 22 mmol/L 21 - 32 mmol/L [facility] Interpretation and review of laboratory results Normal [facility] Potassium [Moles/Vol] 4.1 mmol/L 3.5 - 5.1 mmol/L [facility] Sodium [Moles/Vol] 141 mmol/L 135 - 145 mmol/L [facility] Urea nitrogen [Mass/Vol] 13 mg/dL 8 - 25 mg/dL [facility] Urea nitrogen/Creatinine [Mass ratio] 12.0 mg/mg 10 - 20 [facility] The eGFR should be used for monitoring renal function only and not for medication dosing. [facility] CBC Auto Differentialon 12-27 Basophils (Bld) [#/Vol] 0.02 10*3/uL [facility] Basophils/100 WBC (Bld) 0.4 % [facility] Eosinophils (Bld) [#/Vol] 0.11 10*3/uL [facility] Eosinophils/100 WBC (Bld) 2.1 % [facility] Erythrocyte distribution width (RBC) [Entitic vol] 15.1 % High 11.6 - 14.8 % [facility] Hematocrit (Bld) [Volume fraction] 36.8 % Low 41 - 53 % [facility] Hemoglobin (Bld) [Mass/Vol] 12.4 g/dL Low 13.5 - 17.5 g/dL [facility] Immature granulocytes (Bld) [#/Vol] 0.01 10*3/uL [facility] Immature granulocytes/100 WBC (Bld) 0.20 % [facility] Comment on above: The IG parameter is the percentage of metamyelocytes, myelocytes and promyelocytes. An immature granulocyte count (IG) of 1% or more suggests the possibility of infection, an IG count of 3% is very likely related to an infection. Interpretation and review of laboratory results Abnormal [facility] Lymphocytes (Bld) [#/Vol] 0.79 10*3/uL Low [facility] Lymphocytes/100 WBC (Bld) 14.8 % [facility] MCH (RBC) [Entitic mass] 31.4 pg 26 - 34 pg [facility] MCHC (RBC) [Mass/Vol] 33.7 g/dL 31 - 37 g/dL [facility] MCV (RBC) [Entitic vol] 93.2 fL 80 - 100 fL [facility] Monocytes (Bld) [#/Vol] 0.66 10*3/uL [facility] Monocytes/100 WBC (Bld) 12.4 % [facility] Neutrophils (Bld) [#/Vol] 3.75 10*3/uL [facility] Neutrophils/100 WBC (Bld) 70.1 % [facility] Nucleated RBC (Bld) [#/Vol] 0.00 10*3/uL [facility] Nucleated RBC/100 WBC (Bld) [Ratio] 0.0 % [facility] Platelet mean volume (Bld) [Entitic vol] 10.7 fL 9.4 - 12.4 fL [facility] Platelets (Bld) [#/Vol] 115 10*3/uL Low [facility] RBC (Bld) [#/Vol] 3.95 10*6/uL [facility] WBC (Bld) [#/Vol] 5.34 10*3/uL [facility] CT Angiogram Abdominal Aorta With Lower [...] findings as described above. Workstation ID: [id number] [employer] EXAMINATION: CT ANGIOGRAM ABDOMINAL AORTA WITH LOWER [...] AORTA/BRANCH VESSELS: Moderate aortic calcification without aneurysm. Drtz-be-gmmnnymy atherosclerosis involving the iliac vessels without aneurysm or significant stenosis. LLE: The left common femoral to tibioperoneal trunk bypass graft is patent. 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 Again seen is [...] Incompletely evaluated due to beam hardening artifact. Chicory Matilda Xavier MD - 01/19/2022 EXAMINATION: CT [...] AORTA/BRANCH VESSELS: Moderate aortic calcification without aneurysm. Nwjc-rw-snaeovms atherosclerosis involving the iliac vessels without aneurysm or significant stenosis. LLE: The left common femoral to tibioperoneal trunk bypass graft is patent. 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 Again seen is [...] findings as described above. Workstation ID: [id number] [facility] [facility] Radiology Study observation (narrative) [facility] CT Angiogram Abdominal Aorta With Lower ExtremityOrdered By: Matilda Cheng on 01-19-2022 [facility] Work Phone: CT Chest Without Contraston 01-19-2022 [...] 2017. Laura Polo et al. January 2017. Kera/Hortor Workstation ID: [id number] [place] RIS EXAMINATION: CT CHEST WITHOUT CONTRAST - [...] noted with dense calcifications seen throughout the [place] coronary arteries along with coronary arterial stents. [...] hepatic parenchyma, compatible with mild fatty infiltration. [facility] OscarRajiv figueroa MD - 01/19/2022 EXAMINATION: CT [...] noted with dense calcifications seen throughout the [place] coronary arteries along with coronary arterial stents. [...] 2017. Laura Polo, et al. January 2017. Kera/GrowYoi Workstation ID: [id number] [facility] Radiology Study observation (narrative) [facility] CT Chest Without ContrastOrd ered By: Rajiv Oscar on 01-19-2022 [facility] Work Phone: ECG 12 Leadon 01-19-2022 Atrial Rate 76 BPM [facility] P Harvard -12 degrees [facility] P-R Interval 172 ms [facility] Q-T Interval 410 ms [facility] QRS Duration 98 ms [facility] QTC Calculation (Bezet) 461 ms [facility] R Harvard 39 degrees [facility] T Harvard 22 degrees [facility] Ventricular Rate 76 BPM [facility] Sinus rhythm with occasional Premature ventricular complexes Otherwise normal ECG Confirmed by Clark Donovan M.D. ([id number]) on 01/19/2022 10:38:16 AM MUSE [facility] EKGon 01-19-2022 Ordered by an unspecified provider. [facility] Ordered by an unspecified provider. [facility] Basic metabolic 2000 panelon 01-18-2022 Anion gap [Moles/Vol] 13 mmol/L 10 - 2 0 mmol/L [facility] Calcium [Mass/Vol] 9.2 mg/dL 8.4 - 10. 2 mg/dL [facility] Chloride [Moles/Vol] 103 mmol/L 98 - 10 8 mmol/L [facility] Creatinine [Mass/Vol] 1.10 mg/dL 0.80 - 1.30 mg/dL [facility] GFR/1.73 sq M.predicted CKD-EPI (S/P/Bld) [Vol rate/Area] 62 - PINF [facility] Glucose [Mass/Vol] 107 mg/dL High 65 - 99 mg/dL [facility] HCO3 [Moles/Vol] 26 mmol/L 21 - 32 mmol/L [facility] Potassium [Moles/Vol] 4.2 mmol/L 3.5 - 5.1 mmol/L [facility] Sodium [Moles/Vol] 138 mmol/L 135 - 145 mmol/L [facility] Urea nitrogen [Mass/Vol] 14 mg/dL 8 - 25 mg/dL [facility] Urea nitrogen/Creatinine [Mass ratio] 12.7 mg/mg 10 - 20 [facility] The eGFR should be used for monitoring renal function only and not for medication dosing. [facility] CBC Auto Differentialon 12-27 Basophils (Bld) [#/Vol] 0.02 10*3/uL [facility] Basophils/100 WBC (Bld) 0.3 % [facility] Eosinophils (Bld) [#/Vol] 0.14 10*3/uL [facility] Eosinophils/100 WBC (Bld) 2.1 % [facility] Erythrocyte distribution width (RBC) [Entitic vol] 15.3 % High 11.6 - 14.8 % [facility] Hematocrit (Bld) [Volume fraction] 39.2 % Low 41 - 53 % [facility] Hemoglobin (Bld) [Mass/Vol] 14.0 g/dL 13.5 - 17.5 g/dL [facility] Immature granulocytes (Bld) [#/Vol] 0.02 10*3/uL [facility] Immature granulocytes/100 WBC (Bld) 0.30 % [facility] Comment on above: The IG parameter is the percentage of metamyelocytes, myelocytes and promyelocytes. An immature granulocyte count (IG) of 1% or more suggests the possibility of infection, an IG count of 3% is very likely related to an infection. Interpretation and review of laboratory results Abnormal [facility] Lymphocytes (Bld) [#/Vol] 0.75 10*3/uL Low [facility] Lymphocytes/100 WBC (Bld) 11.1 % [facility] MCH (RBC) [Entitic mass] 33.3 pg 26 - 34 pg [facility] MCHC (RBC) [Mass/Vol] 35.7 g/dL 31 - 37 g/dL [facility] MCV (RBC) [Entitic vol] 93.1 fL 80 - 100 fL [facility] Monocytes (Bld) [#/Vol] 0.78 10*3/uL [facility] Monocytes/100 WBC (Bld) 11.5 % [facility] Neutrophils (Bld) [#/Vol] 5.05 10*3/uL [facility] Neutrophils/100 WBC (Bld) 74.7 % [facility] Nucleated RBC (Bld) [#/Vol] 0.00 10*3/uL [facility] Nucleated RBC/100 WBC (Bld) [Ratio] 0.0 % [facility] Platelet mean volume (Bld) [Entitic vol] 10.4 fL 9.4 - 12.4 fL [facility] Platelets (Bld) [#/Vol] 150 10*3/uL [facility] RBC (Bld) [#/Vol] 4.21 10*6/uL [facility] ealth WBC (Bld) [#/Vol] 6.76 10*3/uL [facility], Inflammationon 01-19-20 CRP [Mass/Vol] 63.5 mg/L High 0 - 10 mg/[facility] Leadon 01-18-2022 Mikey Mcguire MD 01/18/2022 11:27 PM ECG 12 Lead Date/Time: 01/18/2022 11:27 PM Performed by: Mikey Mcguire MD Authorized by: Mikey Mcguire MD Interpreted by ED attending physician Rhythm: sinus rhythm BPM: 76 Ectopy: PVCs Conduction: conduction normal ST Segments: ST segments normal T Waves: T waves normal Clinical impression: non-specific ECG [facility] ESR Westergren method (Bld) [Velocity]on 01-18-2022 ESR (Bld) [Velocity] 18 mm/h [facility] Interpretation and review of laboratory results Normal [facility] [place] Topon 01-18-2022 Extra Tube Hold for add-ons. [facility] Comment on above: Auto resulted. [facility] No Panel Informationon 01-18 Extra Tube Hold for add-ons. [facility] Comment on above: Auto resulted. [facility] Interpretation and review of laboratory results Abnormal [facility] POC Venous Blood Gases with Full PanelOrdered By: Elana Chavez on 01-18-2022 Base excess Calc (BldV) [Moles/Vol] 0.2 mmol/L -2 - 2 [facility] Calcium.ionized [Mass/Vol] 4.7 mg/dL 4.5 - 5.3 mg/dL [facility] Chloride [Moles/Vol] 104 mmol/L 98 - 10 8 mmol/L [facility] CO2 (BldV) [Partial pressure] 41.3 mm[Hg] [facility] CO2 [Moles/Vol] 25 mmol/L 21 - 32 mmol/L [facility] Creatinine [Mass/Vol] 1.35 mg/dL High 0.80 - 1.30 mg/dL [facility] GFR 48 Low - PINF [facility] Glucose [Mass/Vol] 98 mg/dL 65 - 99 mg/dL [facility] Hematocrit (Bld) [Volume fraction] 42 % 41 - 53 % [facility] Hemoglobin (Bld) [Mass/Vol] 14.4 g/dL 13.5 - 17.5 g/dL [facility] Interpretation and review of laboratory results Abnormal [facility] Lactate (Bld) [Mass/Vol] 1.0 mmol/L 0.6 - 2 mmol/L [facility] Oxygen (BldV) [Partial pressure] 51 mm[Hg] High [facility] Oxygen saturation in Venous blood 85.2 % High 40 - 70 % [facility] pH (BldV) 7.40 [pH] 7.32 - 7.42 [facility] Potassium [Moles/Vol] 4.0 mmol/L 3.5 - 5.1 mmol/L [facility] Sodium [Moles/Vol] 141 mmol/L 135 - 145 mmol/L [facility] Urea nitrogen [Mass/Vol] 14 mg/dL 8 - 25 mg/dL [facility] The eGFR should be used for monitoring renal function only and not for medication dosing. [facility] [place] Topon 01-18-2022 [facility] XR Ankle Left 3+ Views (Shekhar lombardi)on 01-18-2022 FINDINGS/ Distal fibula ORIF. 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 No acute periosteal reaction. Severe tibiotalar osteoarthritis. Diffuse soft tissue edema about the remainder of the foot. No soft tissue gas. Vascular atherosclerotic soft tissue calcifications. Workstation ID: [id number] [employer] EXAMINATION: XR ANKLE LEFT 3+ VIEWS (STANDARD) 01/18/2022 9:01 pm HISTORY: ORDERING SYSTEM PROVIDED HISTORY: left ankle/stump cellulitis, r/o osteo, TECHNOLOGIST PROVIDED HISTORY: Illness/Other Reason for exam: left ankle/stump cellulitis, r/o osteo Cancer History: unk Surgery, RadiationHistory: YES Encounter Type: Unknown Additional signs and symptoms: unk ORDERING SYSTEM PROVIDED DIAGNOSIS CODES: COMPARISON: 01/18/2022 [facility] Mikey Huerta MD - 01/18/2022 EXAMINATION: XR [...] atherosclerotic soft tissue calcifications. Workstation ID: [id number] [facility] Radiology Study observation (narrative) [facility] XR Tibia Fibula Left 2 Views on 01-18-2022 FINDINGS/ Distal fibular ORIF without evidence of hardware complication. No acute fracture identified. Tricompartmental osteophytes at the knee. No periosteal reaction. Moderate to severe tibiotalar osteoarthritis. Probable vascular stent in the popliteal fossa with several surrounding surgical clips. No soft tissue gas or obvious large fluid collection. Workstation ID: [id number] [facility] EXAMINATION: XR TIBIA FIBULA LEFT 2 VIEWS 01/18/2022 8:24 pm HISTORY: ORDERING SYSTEM PROVIDED HISTORY: infx r/o gas, TECHNOLOGIST PROVIDED HISTORY: Illness/Other Reason for exam: infx r/o gas Cancer History: unk Surgery, RadiationHistory: YES Encounter Type: Unknown Additional signs and symptoms: ORDERING SYSTEM PROVIDED DIAGNOSIS CODES: COMPARISON: 10/21/2019 [facility] Mikey Huerta MD - 01/18/2022 EXAMINATION: XR [...] obvious large fluid collection. Workstation ID: [id number] [facility] Radiology Study observation (narrative) [facility] XR Tibia Fibula Left 2 Views Ordered By: Mikey Huerta on 01-18-2022 [facility] Work Phone: CBCon 07-16-2021 ABSOLUTE BAS 0.0 10*3/uL Normal 0.0-0.2 [facility] Comment on above: Result Comment: Test ing performed at [place], [place] [address] Performed By: #### A CBC #### [place] [address] ABSOLUTE EOS 0.00 10*3/uL Normal 0.0-0.7 [facility] Comment on above: Performed By: #### A CBC #### Testing performed at [address] [address] ABSOLUTE NEUTROPHIL COUNT 8.7 10*3/uL High 1.4-6.5 [facility] Comment on above: Performed By: #### A CBC #### Testing performed at [address] [address] Basophils/100 WBC (Bld) 0.0 % Normal 0.0-2.0 [facility] Comment on above: Performed By: #### A CBC #### Testing performed at [address] [address] DTYPE AUTO DIFF Normal [facility] Comment on above: Performed By: #### A CBC #### Testing performed at [address] [address] Eosinophils/100 WBC (Bld) 0.0 % Normal 0.0-11.0 [facility] Comment on above: Performed By: #### A CBC #### Testing performed at [address] [address] Lymphocytes (Bld) [#/Vol] 0.40 10*3/uL Low 1.2-3.4 [facility] Comment on above: Performed By: #### A CBC #### Testing performed at [address] [address] Lymphocytes/100 WBC (Bld) 4.2 % Low 20.0-55.0 [facility] Comment on above: Performed By: #### A CBC #### Testing performed at [address] [address] Monocytes (Bld) [#/Vol] 0.9 10*3/uL High 0.0-0.7 [facility] Comment on above: Performed By: #### A CBC #### Testing performed at [address] [address] Monocytes/100 WBC (Bld) 8.9 % Normal 0.0-10.0 [facility] Comment on above: Performed By: #### A CBC #### Testing performed at [address] [address] Neutrophils/100 WBC (Bld) 86.9 % High 37.0-75.0 [facility] Comment on above: Performed By: #### A CBC #### Testing performed at [address] [address] Erythrocyte distribution width (RBC) [Ratio] 15.4 % High 11.5-14.5 [facility] Comment on above: Performed By: #### A CBC #### Testing performed at [address] [address] Hematocrit (Bld) [Volume fraction] 34.2 % Low 42.0-52.0 [facility] Comment on above: Performed By: #### A CBC #### Testing performed at [address] [address] Hemoglobin (Bld) [Mass/Vol] 11.7 g/dL Low 14.0-18.0 [facility] Comment on above: Performed By: #### A CBC #### Testing performed at [address] [address] MCH (RBC) [Entitic mass] 31.4 pg Normal 26.0-35.0 [facility] Comment on above: Performed By: #### A CBC #### Testing performed at [address] [address] MCHC (RBC) [Mass/Vol] 34.3 g/dL Normal 27.0-37.0 [facility] Comment on above: Performed By: #### A CBC #### Testing performed at [address] [address] MCV (RBC) [Entitic vol] 91.6 fL Normal 80.0-100.0 [facility] Comment on above: Performed By: #### A CBC #### Testing performed at [address] [address] Platelet mean volume (Bld) [Entitic vol] 8.2 fL Normal 7.4-11.0 [facility] Comment on above: Result Comment: Test ing performed at [place] [address] Performed By: #### A CBC #### [place] [address] Platelets (Bld) [#/Vol] 127 10*3/uL Low 130.0-400.0 [facility] Comment on above: Performed By: #### A CBC #### [place] [address] RBC (Bld) [#/Vol] 3.73 10*6/uL Low 4.0-6.1 [facility] Comment on above: Performed By: #### A CBC #### [place] [address] WBC (Bld) [#/Vol] 10.0 10*3/uL Normal 3.6-11.0 [facility] Comment on above: Performed By: #### A CBC #### [place] [address] NOVEL CORONAVIRUSon 11-18-20 21 NARRATIVE This test was performed using isothermal OREN and has been approved as Emergency Use Authorization (EUA) for the qualitative detection [id number] nucleic acid. Normal [facility] Comment on above: Result Comment: Test ing performed at [place] [address] Performed By: #### C OVID #### [place] [address] SARS-CoV-2 (COVID-19) RNA OREN+probe Ql (Unsp spec) Not detected Normal NOT DETECTED [facility] Comment on above: Result Comment: Nega [...] #### C OVID #### Testing performed at [facility] [address] [place] [address] TYPE AND SCREEN CROSSMATCH C ONVERTIBLEon 07-15-2021 TYPE AND SCREEN CROSSMATCH CONVERTIBLE WORKUP EXPIRES 07/18/2021,2359 ABO/RH(D) O POSITIVE ANTIBODY SCREEN NEGATIVE ARM BAND NUMBER [id number] Testing performed at [place], [place] [address] Normal [facility] Comment on above: Performed By: #### T SCC #### Testing performed at [facility] [address] [place] [address] Basic Metabolic Panelon 04-30 Calcium [Mass/Vol] 9.6 mg/dL Normal 8.5-10.6 [facility] Chloride [Moles/Vol] 105 mmol/L Normal 98-[address] [facility] CO2 [Moles/Vol] 29 mmol/L Normal 21-32 [facility] Creatinine [Mass/Vol] 0.99 mg/dL Normal 0.70-1.30 [facility] Glucose [Mass/Vol] 92 mg/dL Normal 70-99 [facility] Potassium [Moles/Vol] 4.6 mmol/L Normal 3.5-5.1 [facility] Sodium [Moles/Vol] 142 mmol/L Normal 136-145 [facility] Urea nitrogen (BldV) [Mass/Vol] 15 mg/dL Normal 7.0-18.0 [facility] Urea nitrogen/Creatinine [Mass ratio] 15 mg/mg Normal [facility] CBC with Differentialon 04-30 Basophils (Bld) [#/Vol] 0.0 thou/mcL Normal 0.0-0.2 [facility] Basophils/100 WBC (Bld) 0.7 % Normal 0-3 [facility] Differential cell count method Nom (Bld) AUTOMATED DIFFERENTIAL Normal [facility] Eosinophils (Bld) [#/Vol] 0.0 thou/mcL Normal 0.0-0.4 [facility] Eosinophils/100 WBC (Bld) 1.2 % Normal 0-7 [facility] Lymphocytes (Bld) [#/Vol] 0.6 thou/mcL Low 0.7-4.5 [facility] Lymphocytes/100 WBC (Bld) 18.3 % Normal 14-46 [facility] Monocytes (Bld) [#/Vol] 0.5 thou/mcL Normal 0.1-1.0 [facility] Monocytes/100 WBC (Bld) 13.2 % High 4-13 [facility] Neutrophils (Bld) [#/Vol] 2.3 thou/mcL Normal 1.5-7.8 [facility] Neutrophils/100 WBC (Bld) 66.6 % Normal 40-74 [facility] Erythrocyte distribution width (RBC) [Entitic vol] 16.1 % High 11.7-15.0 [facility] Hematocrit (Bld) [Volume fraction] 38.2 % Normal 34.0-50.0 [facility] Hemoglobin (Bld) [Mass/Vol] 13.6 g/dL Normal 11.5-17.0 [facility] MCH (RBC) [Entitic mass] 33.2 Picograms Normal 27.0-34.0 [facility] MCHC (RBC) [Mass/Vol] 35.6 g/dL Normal 32.0-36.0 [facility] MCV (RBC) [Entitic vol] 93.2 fL Normal 80-98 [facility] Platelet mean volume (Bld) [Entitic vol] 8.6 fL Normal 7.5-11.2 [facility] Platelets (Bld) [#/Vol] 179 thou/mcL Normal 140-415 [facility] Comment on above: Result Comment: Veri fied by repeat analysis RBC (Bld) [#/Vol] 4.10 x(10)6/mcL Normal 3.80-5.60 [facility] WBC (Bld) [#/Vol] 3.5 thou/mcL Low 4.0-10.5 [facility] Comment on above: Result Comment: VERI FIED BY SLIDE REVIEW Partial Thromboplastin Time (aPTT)on 05-27-2020 aPTT Coag (PPP) [Time] 27.4 Sec Normal 23.2-34.6 [facility] Prothrombin Timeon 0 INR Coag (Bld) [Relative time] 1.1 {INR} Normal [facility] Comment on above: Result Comment: MAGALYS NG THE INDUCTION PHASE OF ORAL ANTICOAGULATION, THE INR MAY NOT REFLECT THE ANTICOAGULANT STATUS OF THE PATIENT. THERAPEUTIC RANGES FOR INR'S ARE: MOST CLINICAL SITUATIONS: INR 2.0-3.0 MECHANICAL PROSTHETIC VALVES: INR 2.5-3.5 CRITICAL: INR 5.0 PT Coag (PPP) [Time] 14.5 Sec Normal 11.9-14.[address] [facility] US DOPPLER CAROTIDon 020 Non-Invasive Vascula r ____ Patient: SHERRY Bazan [facility] Rec#: [id number] (Age): 1940(80y) Study Date: 03/16/2020 Room#: Type: Outpatient Sex: M ____ Reading: Radha Su DO, DENIZT, RPVI, FSVM Referring: Mohsen Sarabia MD, RPVI Point Of Care Technician: Wagner Giron RVT, RDCA Procedure Info: [id number]... Study Quality: ____ Diagnosis: I65.23 Occlusion and [...] by: Radha Su DO, RVT, RPVI, FSVM [facility] Interface, Rad In Heartlab Xper Echopacs - 03/16/2020 1:20 PM EDT Non-Invasive Vascular ____ Patient: SHERRY Jones Rec#: [id number] (Age): 1940(80y) Study Date: 03/16/2020 Room#: Type: Outpatient Sex: M ____ Reading: Radha Su DO, RVT, NATANAEL, FSVM Referring: Mohsen Sarabia MD, NATANAEL Point Of Care Technician: Wagner Giron RVT, RDMS Procedure Info: [id number]... 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 Lower [...] 03/16/2020 13:08:20 by: Radha Su DO, RVT, NATANAEL, FSYVES [facility] Interface, Rad [facility] - 03/16/2020 1:20 PM EDT Non-Invasive Vascular ____ Patient: SHERRY Bazan [facility] Rec#: [id number] (Age): 1940(80y) Study Date: 03/16/2020 Room#: Type: Outpatient Sex: M ____ Reading: Radha Su DO, RVT, RPLUIZA, FSVM Referring: Mohsen Sarabia MD, NATANAEL Point Of Care Technician: Wagner Giron RVT, MEI Procedure Info: [id number] Study Quality: ____ 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 Normal [facility] CBCon 11-29-2019 Erythrocyte distribution width (RBC) [Entitic vol] 14.3 % Normal 11.7-15.0 [facility] Hematocrit (Bld) [Volume fraction] 33.8 % Low 34.0-50.0 [facility] Hemoglobin (Bld) [Mass/Vol] 11.8 g/dL Normal 11.5-17.0 [facility] MCH (RBC) [Entitic mass] 31.4 Picograms Normal 27.0-34.0 [facility] MCHC (RBC) [Mass/Vol] 35.0 g/dL Normal 32.0-36.0 [facility] MCV (RBC) [Entitic vol] 89.8 fL Normal 80-98 [facility] Platelet mean volume (Bld) [Entitic vol] 8.7 fL Normal 7.5-11.2 [facility] Platelets (Bld) [#/Vol] 152 thou/mcL Normal 140-415 [facility] RBC (Bld) [#/Vol] 3.77 x(10)6/mcL Low 3.80-5.60 Mo unt [facility] WBC (Bld) [#/Vol] 10.2 thou/mcL Normal 4.0-10.[address] [facility] OR Nursingon 11-29-2019 OR Nursing CO NA OR Nursing Record Summary Primary Physician: Ramana Cason MD Finalized Date/Time: 11/29/19 11:47:30 Pt. Name: TRISTIN POWELL/Sex: 1940 Male Med Rec #: [id number] Physician: Ramana Cason MD Financial #: [id number] Pt. Type: I Room/Bed: Admit/Disch: 11/28/19 05:01:00 - Institution: CO NA OR Case Times Entry 1 Patient Times Patient In Room 11/28/19 06:30:00 Patient Out Room 11/28/19 09:18:00 Surgical Times Start Time 11/28/19 07:05:00 Stop Time 11/28/19 09:05:00 Last Modified By: Mary Kate Baptiste RN 11/28/19 09:16:34 CO NA OR Case Attendees Entry 1 Entry 2 Entry 3 Case Attendee Oscar DIAZ , Ramana BROWER , Ben Samaniego MD , Nabor Role Performed Primary Surgeon Physician Fuel Cell Engineer Anesthesiologist Time In 11/28/19 06:30:00 11/28/19 06:55:00 11/28/19 06:30:00 Time Out 11/28/19 08:05:00 11/28/19 09:05:00 11/28/19 09:18:00 Procedure Fusion Cervical Post Fusion Cervical Post Fusion Cervical Post with with with Decompression(Cervical ) Decompression(Cervical ) Decompression(Cervical ) Attendee Comment Relief Reason Last Modified By: Emile RN , Mary Kate Baptiste RN , Mary Kate Baptiste RN Mary Kate 11/28/19 09:16:36 11/28/19 09:16:36 11/28/19 09:16:36 Entry 4 Entry 5 Entry 6 Case Attendee Emile LIGHT , Mary Kate Quintana RN , Marichuy Montesinos Role Performed oral pathologist oral pathologist First Scrub Time In 11/28/19 06:30:00 11/28/19 [...] Zuniga MD , Ramana Ontiveros Role Performed Marketing Rep Flame Cutting Machine Operator Helper Surgeon Time In 11/28/19 07:02:00 11/28/19 07:20:00 [...] 11/28/19 09:16:36 CO NA OR General Case Haulage Boss 1 OR CO NA 01 ASA Class [...] SILICONE Present on Arrival? No NATALIE 15FR [id number] Location POSTERIOR NECK Inserted By Ben Saha [...] Baptiste RN, PRONE ON OR BED WITH Oscar DIAZ , Ramana Ontiveros, HARRIET FRAME; ARMS Mateo BROWER , Ben TUCKED AT SIDE WITH Lilian Huerta RN [...] UNITS 1 VIAL POWDER VANCOCIN POWDER TOPICAL 44298-857-62 Medication Dosage 1 sheet 5000 UNITS 1 [...] by Surgeon Implant Identification Description Lineum plugs [id number] Lineum screw 3.5x14mm BETHEL LINEUM PRE-CURVED Type1 Occipital [id number] CERVICAL [id number] Wheelabrator Operator HÉCTOR BIOMET SPINE HÉCTOR BIOMET SPINE BIOMET [employer] Catalog Number [id number] Lot Number na na na Serial Number [...] 1st count correct Count RN Performing Count Tanner Quintana RN, RN, Jimmy D Count Performed with Marichuy Cohen Danielle J [...] 09:16 Karen Giron RN 11/29/19 11:47 Normal [facility] Patient Summaryon 11-29-2019 Patient Summary PATIENT DISCHARGE INSTRUCTIONS If you are having an emergency and are not able to reach your physician, CALL 911 or go to the nearest emergency room and take this document with you. [facility] 11/29/19 11:09 [address] [place]. [address] PATIENT INFORMATION Name: TRISTIN POWELL [place] Address: [address] [address] Age: 79 Years Phone: [phone] : 1940 12:00 MRN: ([id number] Sex: Male Race: White Ethnicity: Not Hispan/Lat Admitted From: Clinic or [facility] Medical Service: Orthopedic Surgery Nurse Unit/Bed: (CO) 2NAN 0208-01 Admit Date: 11/28/2019 05:01 PCP: Flash Lovelace MD PHYSICIANS INVOLVED WITH CARE ---- Attending Physicians: Ramana Cason MD - Orthopaedic Surg Admitting Physician: Ramana Cason MD - Orthopaedic Surg Primary Care Physician:[place] DIAZ , Flash Arteaga,Family Practice, - Consults: IWONA Wren - Internal Medicine FOLLOW-UP APPOINTMENTS: Provider: Specialty: Address: Date: Ramana Cason MD Orthopaedic Surg [address] [facility] [address] (1) Two Weeks Comment: Call for an Appointment Provider: Specialty: Address: Date: Flash Lovelace MD [address] [address] (1) Follow-up as needed ALLERGIES: [...] doses are changed, or new medications (including lbgb-qxn-mmtyzet products) are added. Ask your doctor if [...] having thoughts of suicide, please call the [employer] suicide hotline, anytime day or night, at 3-364-361-ZWLT. Important information about accessing your health information through the [place] [employer] patient portal If you initiated the self-registration process for [employer] during your stay, please check your personal email for an invitation to enroll in [employer] and complete the steps outlined in the email. If you would prefer to enroll while in the hospital, ask a member of your care team. We would be happy to assist you. If you have already enrolled in [employer], go to [email or web address] to login and access your health information. Thank you for choosing [place] [employer]. PATIENT EDUCATION Incentive Spirometer An incentive spirometer [...] 12/25/2007 Document Revised: 09/04/2015 Document Reviewed: 03/23/2015 [employer] Patient Education ?2016 [employer] Venous Thromboembolism, Prevention A venous thromboembolism [...] 08/02/2010 Document Revised: 05/08/2013 Document Reviewed: 12/09/2015 [employer] Interactive Patient Education ?2016 [employer] Preventing Constipation After Surgery Constipation is [...] a bowel movement. ???Having hard, dry, or oatcgc-hytz-miixdy stools. ???Feeling full or bloated. ???Having pain in the lower abdomen. ???Not feeling relief after having a bowel movement. HOME CARE INSTRUCTIONS Diet ???Eat foods that have a lot of fiber. These include fruits, vegetables, whole grains, and beans. Limit foods high in fat and processed sugars. These include pashto fries, hamburgers, cookies, and candy. ???Take a [...] softener, laxative, or fiber supplement. ???Only take ivty-keu-uoilhov or prescription medicines as directed by your [...] 12/09/2013 Document Revised: 09/04/2015 Document Reviewed: 12/09/2013 [employer] Interactive Patient Education ?2016 [employer]. Pain Medicine Instructions HOW CAN PAIN [...] liver damage. Acetaminophen is found in many qdvj-nqh-cixekqd (OTC) and prescription medicines. If you are [...] Reviewed: 06/18/2015 [employer] Interactive Patient Education ?2016 [employer]. PATIENT DISCHARGE INSTRUCTION Signature Page for: TRISTIN POWELL Date/Time: 11/29/2019 11:09:09 A Clinician has explained the information on my discharge instructions and has provided me with a copy. My questions have been answered to my satisfaction. Patient Signature Date/Time Responsible Party Date/Time Relationship to Patient Clinician Signature Date/Time Normal [facility] Troponin Ion 11-29-2019 Troponin I.cardiac [Mass/Vol] 0.03 ng/mL Normal <0.06 [facility] Magnesium Levelon 11-28-2019 Magnesium [Mass/Vol] 2.3 mg/dL Normal 1.8-2.[address] [facility] PACU I Nursingon 11-28-2019 PACU I Nursing CO NA PACU I Nursing Record Summary Primary Physician: Ramana Cason MD Finalized Date/Time: 11/28/19 10:38:07 Pt. Name: TRISTIN POWELL/Sex: 1940 Male Med Rec #: [id number] Physician: Ramana Cason MD Financial #: [id number] Pt. Type: I Room/Bed: / Admit/Disch: 11/28/19 05:01:00 - Institution: [place] NA OR Main PACU I Case Times [...] , Richie Amin RN , Maxine Tripp RN RN Last Modified By: Richie Huerta RN, RN, Christopher W 11/28/19 10:03:10 W 11/28/19 10:03:10 Finalized By: Richie Huerta RN Document Signatures Signed By: Richie Huerta RN 11/28/19 10:38 Normal [facility] PreOp Nursingon 11-28-2019 PreOp Nursing CO NA PreOp Nursing Record Summary Primary Physician: Ramana Cason MD Finalized Date/Time: 11/28/19 07:11:59 Pt. Name: TRISTIN POWELL Alphonso/Sex: 1940 Male Med Rec #: [id number] Physician: Ramana Cason MD Financial #: [id number] Pt. Type: I Room/Bed: / Admit/Disch: 11/28/19 [...] Mary Kate Baptiste RN 11/28/19 07:11 Normal [facility] Troponin Ion 11-28-2019 Troponin I.cardiac [Mass/Vol] ng/mL Normal <0.06 [facility] Troponin I.cardiac [Mass/Vol] ng/mL Normal <0.06 [facility] Basic Metabolic Panelon 10-26 Calcium [Mass/Vol] 9.6 mg/dL Normal 8.5-10.6 [facility] Chloride [Moles/Vol] 105 mmol/L Normal 98-107 [facility] CO2 [Moles/Vol] 28 mmol/L Normal 21-32 [facility] Creatinine [Mass/Vol] 1.12 mg/dL Normal 0.70-1.30 [facility] Glucose [Mass/Vol] 91 mg/dL Normal 70-99 [facility] Potassium [Moles/Vol] 4.9 mmol/L Normal 3.5-5.1 [facility] Sodium [Moles/Vol] 141 mmol/L Normal 136-145 [facility] Urea nitrogen (BldV) [Mass/Vol] 23 mg/dL High 7.0-18.0 [facility] Urea nitrogen/Creatinine [Mass ratio] 21 mg/mg Normal [facility] CBC with Differentialon 10-26 Basophils (Bld) [#/Vol] 0.0 thou/mcL Normal 0.0-0.2 [facility] Basophils/100 WBC (Bld) 0.9 % Normal 0-3 [facility] Differential cell count method Nom (Bld) AUTOMATED DIFFERENTIAL Normal [facility] Eosinophils (Bld) [#/Vol] 0.1 thou/mcL Normal 0.0-0.4 [facility] Eosinophils/100 WBC (Bld) 2.1 % Normal 0-7 [facility] Lymphocytes (Bld) [#/Vol] 0.8 thou/mcL Normal 0.7-4.5 [facility] Lymphocytes/100 WBC (Bld) 19.7 % Normal 14-46 [facility] Monocytes (Bld) [#/Vol] 0.7 thou/mcL Normal 0.1-1.0 [facility] Monocytes/100 WBC (Bld) 16.0 % High 4-13 [facility] Neutrophils (Bld) [#/Vol] 2.5 thou/mcL Normal 1.5-7.8 [facility] Neutrophils/100 WBC (Bld) 61.3 % Normal 40-74 [facility] Erythrocyte distribution width (RBC) [Entitic vol] 14.2 % Normal 11.7-15.0 [facility] Hematocrit (Bld) [Volume fraction] 39.8 % Normal 34.0-50.0 [facility] Hemoglobin (Bld) [Mass/Vol] 13.8 g/dL Normal 11.5-17.0 [facility] MCH (RBC) [Entitic mass] 31.7 Picograms Normal 27.0-34.0 [facility] MCHC (RBC) [Mass/Vol] 34.6 g/dL Normal 32.0-36.0 [facility] MCV (RBC) [Entitic vol] 91.6 fL Normal 80-98 [facility] Platelet mean volume (Bld) [Entitic vol] 8.2 fL Normal 7.5-11.2 [facility] Platelets (Bld) [#/Vol] 191 thou/mcL Normal 140-415 [facility] RBC (Bld) [#/Vol] 4.34 x(10)6/mcL Normal 3.80-5.60 [facility] WBC (Bld) [#/Vol] 4.1 thou/mcL Normal 4.0-10.5 [facility] Comment on above: Result Comment: KATLYNMilan DORAN BY SLIDE REVIEW Partial Thromboplastin Time (aPTT)on 11-12-2019 aPTT Coag (PPP) [Time] 28.5 Sec Normal 23.2-34.6 [facility] Prothrombin Timeon 0 INR Coag (Bld) [Relative time] 1.1 {INR} Normal [facility] Comment on above: Result Comment: MAGALYS MUNOZ THE INDUCTION PHASE OF ORAL ANTICOAGULATION, THE INR MAY NOT REFLECT THE ANTICOAGULANT STATUS OF THE PATIENT. THERAPEUTIC RANGES FOR INR'S ARE: MOST CLINICAL SITUATIONS: INR 2.0-3.0 MECHANICAL PROSTHETIC VALVES: INR 2.5-3.5 CRITICAL: INR 5.0 PT Coag (PPP) [Time] 14.5 Sec Normal 11.9-14.[address] [facility] CT Angiogram Abdominal Aorta With Lower Extremityon 10-21-2019 Patent left femoral to tibioperoneal trunk bypass graft which bypasses an occluded [place] distal superficial femoral artery. Infrapopliteal peripheral arterial [...] to moderate hiatal hernia. Workstation ID: [id number] [facility] EXAMINATION: CTA (Angiogram) OF THE ABDOMEN, PELVIS, [...] artery:Single renal artery is present. There is ggwz-nq-cenvpfzy, 50-70%, narrowing of the ostium of the [...] femoral artery: There is occlusion of the [place] superficial femoral artery in its distal aspect [...] There also degenerative changes in the spine. [facility], Rad In Fu ji Speechq - 10/21/2019 [...] artery:Single renal artery is present. There is cuyc-zs-fdlfindn, 50-70%, narrowing of the ostium of the [...] femoral artery: There is occlusion of the [place] superficial femoral artery in its distal aspect [...] trunk bypass graft which bypasses an occluded [place] distal superficial femoral artery. Infrapopliteal peripheral arterial [...] to moderate hiatal hernia. Workstation ID: [id number] [facility] POC Creatinineon 10-21-2019 Creatinine [Mass/Vol] 1.1 mg/dL 0.8 - 1.3 mg/dL [facility] Interpretation and review of laboratory results Normal [facility] Ultrasound ankle / brachial indices extremity completeon 10-09-2019 Non-Invasive Vascula r ____ Patient: SHERRY Baazn [facility] Rec#: [id number] (Age): 1940(79y) Study Date: 10/09/2019 Room#: Type: Outpatient Sex: M ____ [place]: Nemo Connre MD, PhD, RVT Referring: Mohsen Sarabia MD, RPVI Point Of Care Technician: Andre Madrid RDCS/RVT Procedure Info: [id number] Study Quality: Lower Arterial Doppler: adequate ____ [...] 15:10:46 by: Nemo Conner MD, PhD, RVT [facility] Interface, Rad In Heartlab Xper Echopacs - 10/09/2019 4:01 PM EST Non-Invasive Vascular ____ Patient: SHERRY Bazan [facility] Rec#: [id number] (Age): 1940(79y) Study Date: 10/09/2019 Room#: Type: Outpatient Sex: M ____ [place]: Nemo Conner MD, PhD, RVT Referring: Mohsen Sarabia MD, RPVI Point Of Care Technician: Andre Madrid RDCS/RVT Procedure Info: [id number] Study Quality: Lower Arterial Doppler: adequate ____ [...] 15:10:46 by: Nemo Conner MD, PhD, RVT [facility] Ultrasound duplex arterial l eg lefton 10-09-2019 Non-Invasive Vascula r ____ Patient: SHERRY Bazan [facility] Rec#: [id number] (Age): 1940(79y) Study Date: 10/09/2019 Room#: Type: Outpatient Sex: M ____ [place]: Nemo Conner MD, PhD, RVT Referring: ALENA Point Of Care Technician: Andre Madrid RDCS/RVT Procedure Info: [id number] Study Quality: Graft Duplex: adequate ____ Diagnosis: I73.9 Peripheral vascular disease, unspecified Graft Duplex ____ Conclusions Left: Patent femoral to peroneal artery bypass graft with no evidence of hemodynamically significant stenosis. ____ The procedure was explained to the patient. The patient voiced understanding. Measurements Left PSV Name Value Units EIA 151 cm/sec NURSE RESEARCHER 115 cm/sec Left Graft #1 PSV Name Value Units Inflow Artery 76.8 cm/sec Prox Anastomosis 102 cm/sec Prox Graft 80.7 cm/sec Mid Graft 60.3 cm/sec Dist Graft 69.6 cm/sec Dist Anastomosis 44.1 cm/sec Outflow Artery 72.1 cm/sec History CAD. Hypertension. History Comments:Left transmetatarsal amputation. Electronically signed at 10/09/2019 15:14:54 by: Nemo Conner MD, PhD, RVT [facility] Interface, Rad [facility] - 10/09/2019 4:01 PM EST Non-Invasive Vascular ____ Patient: SHERRY Bazan [facility] Rec#: [id number] (Age): 1940(79y) Study Date: 10/09/2019 Room#: Type: Outpatient Sex: M ____ Reading: Nmeo Conner MD, PhD, RVT Referring: ALENA Point Of Care Technician: Andre Madrid ALBERT/RVT Procedure Info: [id number] Study Quality: Graft Duplex: adequate ____ Diagnosis: I73.9 Peripheral vascular disease, unspecified Graft Duplex ____ Conclusions Left: Patent femoral to peroneal artery bypass graft with no evidence of hemodynamically significant stenosis. ____ The procedure was explained to the patient. The patient voiced understanding. Measurements Left PSV Name Value Units EIA 151 cm/sec NURSE RESEARCHER 115 cm/sec Left Graft #1 PSV Name Value Units Inflow Artery 76.8 cm/sec Prox Anastomosis 102 cm/sec Prox Graft 80.7 cm/sec Mid Graft 60.3 cm/sec Dist Graft 69.6 cm/sec Dist Anastomosis 44.1 cm/sec Outflow Artery 72.1 cm/sec History CAD. Hypertension. History Comments:Left transmetatarsal amputation. Electronically signed at 10/09/2019 15:14:54 by: Nemo Conner MD, PhD, T [facility] DOPPLER CAROTIDon 019 Non-Invasive Vascula r ____ Patient: SHERRY Bazan [facility] Rec#: [id number] (Age): 1940(79y) Study Date: 03/18/2019 Room#: Type: Outpatient Sex: M ____ [place]: Radha Su DO, RVT, NATANAEL, FSVM Referring: Mohsen Sarabia MD, NATANAEL Point Of Care Technician: Wagner Giron RVT, MEI Procedure Info: [id number]... Study Quality: ____ Diagnosis: I65.23 Occlusion and [...] by: Radha Su DO, RVT, NATANAEL, FSYVES [facility] Interface, Rad In Heartlab Xper Echopacs - 03/18/2019 10:30 AM EDT Non-Invasive Vascular ____ Patient: SHERRY Bazan [facility] Rec#: [id number] (Age): 1940(79y) Study Date: 03/18/2019 Room#: Type: Outpatient Sex: M ____ [place]: Radha Su DO, RVT, NATANAEL, FSVM Referring: Mohsen Sarabia MD, NATANAEL Point Of Care Technician: Wagner Giron RVT, RDMS Procedure Info: [id number]... Study Quality: ____ Diagnosis: I65.23 Occlusion and [...] 03/18/2019 10:28:46 by: Radha Su DO, RVT, RPVI, FSVM [facility] Ultrasound ankle / brachial indices extremity completeon 03-13-2019 Non-Invasive Vascula r ____ Patient: SHERRY Bazan [facility] Rec#: [id number] (Age): 1940(79y) Study Date: 03/13/2019 Room#: Type: Outpatient Sex: M ____ Reading: Meir Aguillon MD, RPVI [place]: [place] Referring: Mohsen Sarabia MD, RPVI Point Of Care Technician: Tiffany Millan RDCSRVLatricia Procedure Info: [id number] Study Quality: Lower Arterial Doppler: adequate ____ 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 Lower [...] 03/13/2019 12:54:02 by: Meir Aguillon MD, NATANAEL [facility] Interface, Rad [facility] - 03/13/2019 1:02 PM EDT Non-Invasive Vascular ____ Patient: SHERRY Bazan [facility] Rec#: [id number] (Age): 1940(79y) Study Date: 03/13/2019 Room#: Type: Outpatient Sex: M ____ [place]: Meir Aguillon MD, NATANAEL [place]: [place] Referring: Mohsen Sarabia MD, NATANAEL Point Of Care Technician: Tiffany Millan RDCS,T Procedure Info: [id number] Study Quality: Lower Arterial Doppler: adequate ____ 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 Lower [...] 03/13/2019 12:54:02 by: Meir Aguillon MD, RPVI [facility] BMP FASTINGon 10-31-2018 Anion gap molar conc 8 mmol/L Normal 8-16 [facility] Calcium mass conc 9.6 mg/dL Normal 8.4-10.2 [facility] Chloride molar conc 104 mmol/L Normal 98-107 [facility] Comment on above: Result Comment: Jenna phoenix note: Triglyceride levels of 600mg/dL or higher may positively bias chloride results by approximately 2.1 mmol CO2 molar conc 28 mmol/L Normal 22-30 [facility] Creatinine mass conc 0.8 mg/dL Normal 0.7-1.2 [facility] EST. GFR, >60 Normal [facility] EST. GFR,Non >60 Normal [facility] GFR/1.73 sq M predicted among non-blacks MDRD vol rate/area (S/P/Bld) Average GFR for 70+ years old = 75. Normal [facility] Comment on above: Result Comment: Events Traffic Controller darnell Kidney disease, GFR = <60. Kidney failure, GFR = <15. The GFR estimate is not adjusted for extreme body surface area or acute process, nor has it been validated for women or ethnic groups other than and . Glucose mass conc 95 mg/dL Normal 70-100 [facility] Comment on above: Result Comment: NORMAL <100 mg/dL PREDIABETES 101-126 mg/dL DIABETES 126 mg/dL or higher Potassium molar conc 4.2 mmol/L Normal 3.5-5.1 [facility] Sodium molar conc 140 mmol/L Normal 137-145 [facility] Urea nitrogen mass conc 10 mg/dL Normal 7-20 [facility] CBCon 10-31-2018 ABSOLUTE BAS 0.0 X10 Normal [facility] ABSOLUTE EOS 0.10 X10 Normal [facility] ABSOLUTE NEUTROPHIL COUNT 4.1 x10 Normal 1.0-7.0 [facility] Basophils/100 WBC (Bld) 0.5 % Normal 0.0-2.0 [facility] DTYPE AUTO DIFF Normal [facility] Eosinophils/100 WBC (Bld) 1.1 % Normal 0.0-11.0 [facility] Lymphocytes #/vol (Bld) 1.10 X10 Normal [facility] Lymphocytes/100 WBC (Bld) 18.3 % Low 20.0-55.0 [facility] Monocytes #/vol (Bld) 0.5 X10 Normal [facility] Monocytes/100 WBC (Bld) 9.2 % Normal 0.0-10.0 [facility] Neutrophils/100 WBC (Bld) 70.9 % Normal 37.0-75.0 [facility] Erythrocyte distribution width Ratio (RBC) 16.0 % High 11.5-14.5 [facility] Hematocrit Volume Fraction (Bld) 33.3 % Low 42.0-52.0 [facility] Hemoglobin mass conc (Bld) 11.4 g/dL Low 14.0-18.0 [facility] MCH Entitic mass (RBC) 30.8 pg Normal 26.0-35.0 [facility] MCHC mass conc (RBC) 34.2 g/dL Normal 27.0-37.0 [facility] MCV Entitic volume (RBC) 90.0 fL Normal 80.0-100.0 [facility] Platelet mean volume Entitic volume (Bld) 7.6 fL Normal 7.4-11.0 [facility] Platelets #/vol (Bld) 271 /cmm Normal 130.0-400.0 [facility] RBC #/vol (Bld) 3.69 /cmm Low 4.0-6.1 [facility] WBC #/vol (Bld) 5.8 /cmm Normal 3.6-11.0 [facility] ISTAT TROPONIN Ion 9 Troponin I.cardiac mass conc 0.02 ng/mL Normal 0-0.08 [facility] Troponin I.cardiac mass conc 0.03 ng/mL Normal 0-0.08 [facility] US Doppler ankle/brachial in dexon 10-31-2018 Amended Report Non-Invasive Vascular ____ Patient: SHERRY Bazan [facility] Rec#: [id number] (Age): 1940(78y) Study Date: 10/31/2018 Room#: Type: Outpatient Sex: M ____ Reading: Ben Hahn MD, RPVI Reading: Campos Guerra M.D. Referring: Mohsen Sarabia MD, NATANAEL Point Of Care Technician: Sussy Hardin RVT Procedure Info: [id number]... Study Quality: Lower Arterial Doppler: limited Study [...] 10/31/2018 12:01:15 by: Ben Hahn MD, NATANAEL [facility] Interface, Rad In Heartlab Xper Echopacs - 10/31/2018 12:05 PM EST Amended Report Non-Invasive Vascular ____ Patient: SHERRY RTISTIN Bazan [facility] Rec#: [id number] (Age): 1940(78y) Study Date: 10/31/2018 Room#: Type: Outpatient Sex: M ____ Reading: Ben Hahn MD, NATANAEL Reading: Campos Guerra M.D. Referring: Mohsen Sarabia MD, NATANAEL Point Of Care Technician: Sussy Hardin RVT Procedure Info: [id number]... Study Quality: Lower Arterial Doppler: limited Study [...] 10/31/2018 12:01:15 by: Ben Hahn MD, RPVI [facility] Ultrasound duplex arterial l eg lefton 10-31-2018 Non-Invasive Vascula r ____ Patient: SHERRY Bazan Med Rec#: [id number] (Age): 1940(78y) Study Date: 10/31/2018 Room#: Type: Outpatient Sex: M ____ Reading: Campos Guerra M.D. Referring: ALENA Point Of Care Technician: Sussy Hardin RVT Procedure Info: [id number] Study Quality: Graft Duplex: adequate ____ Diagnosis: [...] vein graft, with proximal anastomosis at the NURSE RESEARCHER and distal anastomosis at the peroneal artery. Measurements Left PSV Name Value Units EIA 128 cm/sec NURSE RESEARCHER 111 cm/sec LAUREL - prox 0 cm/sec LAUREL - mid 0 cm/sec LAUREL - dist 0 cm/sec COLLEGE OR UNIVERSITY REGISTRAR - mid 0 cm/sec COLLEGE OR UNIVERSITY REGISTRAR - dist 0 cm/sec Peroneal - mid [...] at 10/31/2018 12:07:19 by: Campos Guerra M.D. [facility] Interface, Rad [facility] - 10/31/2018 12:09 PM EST Non-Invasive Vascular ____ Patient: SHERRY Jones Rec#: [id number] (Age): 1940(78y) Study Date: 10/31/2018 Room#: Type: Outpatient Sex: M ____ Reading: Campos Guerra M.D. Referring: ALENA Point Of Care Technician: Sussy Hardin RVT Procedure Info: [id number] Study Quality: Graft Duplex: adequate ____ Diagnosis: [...] vein graft, with proximal anastomosis at the NURSE RESEARCHER and distal anastomosis at the peroneal artery. Measurements Left PSV Name Value Units EIA 128 cm/sec NURSE RESEARCHER 111 cm/sec LAUREL - prox 0 cm/sec LAUREL - mid 0 cm/sec LAUREL - dist 0 cm/sec COLLEGE OR UNIVERSITY REGISTRAR - mid 0 cm/sec COLLEGE OR UNIVERSITY REGISTRAR - dist 0 cm/sec Peroneal - mid [...] at 10/31/2018 12:07:19 by: Campos Guerra M.D. [facility] XR CHEST PA 1 VIEWon 03-06-2 019 XR CHEST PA 1 VIEW XR [...] disease. 3. Bibasilar atelectasis and/or scarring. Normal [facility] Creatinine, Serumon 10-12-19 19 Creatinine mass conc 0.79 mg/dL Low 0.8 - 1 .3 mg/dL [facility] GFR/1.73 sq M predicted among non-blacks MDRD vol rate/area (S/P/Bld) The eGFR should be used for monitoring renal function only and not for medication dosing. [facility] GFR/1.73 sq M.predicted CKD-EPI vol rate/area (S/P/Bld) 85 >=60 mL/min/1.73 m2 [facility] Interpretation and review of laboratory results Abnormal [facility] TISSUE EXAMon 10-12-2018 Case Report Surgical Pathology Report Case: [id number] Authorizing Provider: Ben Jensen, Collected: 10/10/2018 01:05 PM Ordering Location: [facility] Received: 10/11/2018 08:07 AM Endoscopy Pathologist: Carson Carroll MD Specimens: A) - Duodenum, Second Portion B) - Gastroesophageal Junction [facility] Clinical information b1mjpWSsGFPndIVeZlS yMD RpRAGex0xdFLCfzNDqIdXm MzNcZnRuYmpcdWMxXGRlZm Lha8lot851jPNwf8ehHHUs FiN0mHJlNALimYNoP798e1 dif7mwhzDnbPC2EIKpMVZ4 KLvuqcAajbV8JBsgkXDnPy Y4WWjplpXsIOjtmzMjzhQl Gxr6GYZrO083UHS1xCtmd1 lfKGM2NKQqFDSmGxDiTi4u tURdP288DKZeQIUJFVWpeI d6BBUhgkAyljLenNMQb180 X943f0teHSAfxeNkpYnLkx qje2piR105NITmbXXuimKw PjGzUSPbsIRmpWT8ABPcZS 1pwjhwLdWdKS2mentzNhBt ID5xbxv7YXX6DJcrPXDiGr D0UWOmpSTcJHWyrMkkEZwt g894DCE9SPqvt4ynu1vqvZ XuXqx3YGVmNgBhAmpmEOmw q2Xzr0brEOSsgr0uBEI0dU XjgQeur8J6yIHaQCHiyFPf llUcCSBxCzX2PFvnYZ3gfh 22ZIBaCOT1la4rnTSwwJdx xsSztMTlURytH3RlVTZmx6 21YAIoG2MeOFXbj8J8amHl UpYyIIZdlMN8xrM6OAPfVI b4nRFtmoN5gxHdtHElC8tc nS46SmZqbUYyI0AuuT37Xd AziTVpK6UrlG2oEVWsVW3e sxlmh5qeFUH0TCeuVLMySZ K1OnPuCUYnn1QzweyvRPBq x4EpJ1BkrPpiL75zsPntJ8 5yFCUpoYtybI9fwWchxJ4r ZjBcZnMyNFxxbFxwbGFpbl xmMFxmczIwXGxhbmcxMDMz EVidQ6zuNeWwDWEjoAsiKM dog9DvSAFbKAMqUcTqF6ua YmxlZWQuIFxwYXJccGFyIE WeUR2nE75moPFcMxslNVra JvsxFMclGKXgInzcxZG4Jp TISEZgl1DxnC2aFRLlao7= [facility] Pathology report final diagnosis Narrative b9rbkGTyMEBjiMEtQbIoHF CqGPWrf9faDIKxtTCrLwLs MzNcZnRuYmpcdWMxXGRlZm Cbw0asf981oKDgk4qnVIZq OpK1vOCtUTRqsXHqD140NY NaOZwyw0aos8JiWADswPIy v3L9TJQKdefgeCf8eKtmZ8 0fl7C6WkcwC1hwGSEhFLYq U0BxHQ6jIIWwPxj1SHT5AN O8WOEzURHwY8HyAY5mHUWm tCPvQZl5q1vpvLrvBCQfCT U6l8tcQLrqamGbYZ8mkx8w pXb4f6qbpeIsXODyBFMynE ZVIMEaS7FvpUaiRp0gnLq3 rBmgHkmgDID7Vwz5QT5bwu 86vuo8mCbxXCImgzstDlO9 FFkxGHGhssekDFw8PWsgYA JnbDcyMFxtYXJncjcyMFxt HJCncUG0GCAgmOKhA0WyAP NzNQsePIEaots6TbMpKa9p qUVesSHxvz9jen18UPH1y9 BqaTloRCU8JRH0MlLcRy9i tJPoJFUfBZ9cMxMlyWJiGN Ofxd43eElpHHsmxjFshC1b YmRiXGZldDRcYWVuZGRvY1 raFuBsyqJmE1emD7IhQSFd BMXiRVShRfNyobFpu5Vyj8 CwvMHyaXh9l9xwGUBrOIXk yHprh0wpJZC1HONxA8N0yA Gnh3jwIGriBHScoQW5gqnp GGrjLLRmheN2yunjQTfpBM PcwXX8urV5ISGykAVhM2Cj eK3pTYWwBVccYRMbsdo9Bl CtHz8jpQDpcOIcb5OunYRv ABhgX70lc669CVExqaJhY7 xwbGFpblxwbGFpblxmMFxm raF7TJKcfnAnn4FkEESqQW A3CWgnFVxacMNnUMUslMhp x6ryO2RgoZLhNAFrMOlwXT YxXGZzMjJcbGFuZzEwMzNc aGljaFxmMVxkYmNoXGYxXG dhQ4yfTiSeE6DyZTKkLoFy lMNwP0bmWxTWLpKgyQfexL 6bYgAwKqQiUxmcUP8nPVUn J4cxwQEgJUOkIDEjG5qbEl JoyK3cpRflJVdrJiFbLpVp WpcfNTC0t5EgqhSzOUQgIR NocfKspC7quLbkrosatEHh v6KqxRLhhA9uw4jemGvsjB 7nVnInMlScZdhiWA1jKLOf W7igbBMcXYTgZWVzJ5vyZg VnoZ1lfQicMXbhYpXtQgUc MlxsdHJjaFxiIDpccGFyXH BhciAgICAgIFxwbGFpblxm MVxmczIyXGxhbmcxMDMzXG kzH8vjMaXtWYFoaUntIHcc c1NxPSPsALKuVirzyuIpOZ WeWZ9nmz8ayCGwwKCaOqAw qLvhGEBzya9nzMSrQVKxBI QchBRut9xvhLArurprSPxl czIyXGxhbmcxMDMzXGhpY2 uqRnHzDXKetShmALkmq3Dx FOPeHADlQmxpwnEnPHu7cq NoXGJccGFyXHBsYWluXGYx XGZzMjJcbGFuZzEwMzNcaG ljaFxmMVxkYmNoXGYxXGxv O6toLbRsR1FyJWHdGmNyPm yqMNVwfCinnA6kCqHuEtVu JpjiJI1wHEQhE7paaBKdHP LtJPJnD3wfGkUnhP6hkGle MVxjZjJcZnMyMlxsdHJjaF akMOVynxLZXxCnwCqtuP7m PsMaStVyLgphME0cRXEuH3 vosZWoUKGuUEWvU8fqIxZs aY8vwOldLWgwLbCbWgLxLk ptZXJlh8KxIAl5plnkK2Cp rNPfVJWzkNvgF8JmoFMoiN 1wvJiscetcsBHdf8AckNVs gY9tw5hjsHbssZ2cRpEpOs WzLqsgPF6rSZBwX2aneJTo USMhAURdW9nqAcVdiN1qwU xmMVxjZjJcZnMyMlxsdHJj bZaxRBmxfSmyjM6pXgGlVh EqLwluEB3mAHVwB6novTJf FKYvNOHlC4vsOzSwsN6gtF xmMVxjZjJcZnMyMlxiXHBh qrruCSVaWMKiVBVvX5M0VM 9jW05suD9dUARsiJGjp9Fo ZVgnzBxvhPMdyO6gbRAxbM Xkx3CbiQYwbCFfRNasOINd ICAgICAgTmVnYXRpdmUgZm 0xXKsveHFrjRgkMVmwfGP3 YXBsYXNpYVxwYXJ9 [facility] Pathology report gross observation Narrative g9qlrHCdSHSbzVBeMcWcQO LbGOMqt8dhKUMmdBBkTwEk MzNcZnRuYmpcdWMxXGRlZm Vxy6vgj479jZQav0cxRUIw KtC0ePSsYRAehJElR023VU TkVLuzzt3tDG3pQPMejDNk o2H9ISAPkgvbuQa2b1peUj JzOwQ5wUMoMRctT4gwctDz gGZbSMLrGUt6iWsyNmEgWL Bpb7Atvp5zHGMieBPpi9V8 DSXLohhtuUq8bQyjA48kq2 M5GaacT7omTZBkRYudZLXs ONwszWBpAXW2KYZxVLG6WZ txwgPwqfJ2KRmytPNbVgO8 IDtccmVkMjIxXGdyZWVuMj U8RBJmhHJpWYBjS087QQG5 mHizk8vxQNB1GHRgZBUlBy WmJz3utVEkW248LACrRZJE RYWyuEl6EXYgurVpczKbrA MIm231F088d1jySDXvjtSh aZxIkpecd2zzL434JPPimF VydzEyMjQwXHBhcGVyaDE1 RFCwPC9falniDcHxHU4jde eaCeGwPM5bjwh5KUH6WEhl HPDySqN6VFYyvXRvWRFtnO lfLGwpl703OFE3NApma7mc u2hzoFMvXst7LSBuAfRiSt rgYBnyt2Tev9woMCFrgb5c RTX1pHThbIaim8D2pGEvLQ FhgAMgmvCwJBDuCxW1UUyc BD2aJD3cSTFasJ7uvyorBM BnYnJkcmhlYWRccGdicmRy Qu4nnWaxEAH9NMkpS5zgeF 6vToQ0IXjoN5dedT4qEWb0 SKuayPD7GMUikG0dPZ6wyu lfs0hiJjYkJW4tmcupu9tg NlNjGZ5podq0s6csKXJ6LK odZFMzIkL5iqV5YKBpsTGk LPGhaBmzRSits392XEW1FH xzYmtwYWdlXHBnbmNvbnRc cGduZGVjXHBsYWluXHBsYW luXGYwXGZzMjBccGFyZFxz o1OltyBovNaaSPWwMKh6yz MrtyxmsDf4yTQfzGarMBCc uFkvdK4iDiAxBnRaJVdseQ FpblxmMVxmczIwXGxhbmcx BPHtRQtwB3trGkPySWSiqF yfCExho2NmQRTvWQPwQKuv dbCeMBj0yvUfZACjEKTnlW VuIEEuICBSZWNlaXZlZCBp ufAhz4VsTBswunHmHMAkkL AjNTJavOdofE5jJaNwCtYf EKrnNT7zSLDdL1ufiYSmXW InPOBiV1waOvZwvR6vnAtx OojyNoNpQdLrAIbkks55VC K9f4ikcUGuYTdfVvspbRQq dkK0OGcSFJXGSKaYSqBqJY 1lPUxJTktCRUdJTnwzODAw SMlbcJQUPZtEY5z6TGCFNF 8nVClfWwz3EW77FDGrOGTg uMAaBDtlU821QFKdMUigMK YyXGZzMjBcbGFuZzEwMzNc aGljaFxmMlxkYmNoXGYyXG mpS0tjWvVpF6GbWMFiAwEa rPTwjPJuoIOTh8ciLVVNrU 1lciBFXHBsYWluXGYyXGZz MjBcbGFuZzEwMzNcaGljaF poAuouKqAkHSFbAQonY8ex BsDwW4TzPXWbOsAnbBOrfS PbfYnlMqbiuKM4QQjtUetl qC1upPDHXHOMHmcWOqodkr OqHN0GWR0BNT8MzZV6BLVo uIG1KJOSPI1PgMdMITImMv IsLCwyfHwwfXtcZmxkcnNs vDQcUbTujY5qsMtluV1sZq CzHhYbPWfoEP7fKBBpG6nq eBQoZTPwHEEqZ8tsFcXbhV 9jaFxmMVxjZjFcZnMyMFxs dHJjaCAiIGFuZCBkZXNpZ2 2lfUEuRLDtaVumvN2sAaNa TrKvADKPEbINzD5nJT69sL TpVOKateKjwW4ctAiwnawi bGFpblxmMVxmczIwXGxhbm fgCAZdXOxoX8prQfNeWHLq eGpeUXmla2LrVZRvWOVsAF jbfhSpJNn6hhGxGVLcQLYu YWluXGYyXGZzMjAgYXJlIH D9hnE1YP4tiJ3xhJfiizhr n26dl3UzFYThnTB9FGVfKF luXGYxXGZzMjBcbGFuZzEw MzNcaGljaFxmMVxkYmNoXG SsKXxaL9mcDmXxQ6TyGWDo NnQqiTElC0auEVSeABWiIH BxOYNjoXlppE8mJpYnXnRd MCAwLjQgeCAwLjMgeCAwLj MdkIkdjV7hDeYuWiZbKEhx LZ3sKOOrI2rugQSeQWNrXN ArF3prHoOjoQ6jsLhbNAbi ZjFcZnMyMFxsdHJjaCAgY2 2sfYpnhR8uEeLbInXaNZTw ZWFjaFxwbGFpblxmMVxmcz MgBJzqrvftJOBcEGbcS3qz IbLyWDMolMhmVQybl8HjWJ KbBVBdTTtlrxMrMEv4hgRk ZO6gCDNjcQGiwEugdQ4uPy JcZnMyMCAyXHBsYWluXGYx XGZzMjBcbGFuZzEwMzNcaG ljaFxmMVxkYmNoXGYxXGxv O9urXcQoW9KzCPJfFuLggZ CkI0bhHfZyASOjGVyqAOGv XGZzMjBcbGFuZzEwMzNcaG qzuIarR5qfElSzTAWbMPkw V4nsDtXoI2TrIPMoFsBgx6 ZesULqDJQ6DmTkLGEaFKdx bGFpblxmMVxmczIwXGxhbm wzINUcXXrzR6scObXsGHQk mLkhYNfhj3ZuKMSjZPPyCO qvhdTiPRg3swTtTUYurbme bGFpblxmMlxmczIwXHBhcl xwbGFpblxmMVxmczIwXGxh tlrvDVUcGLdvU7oyPcTtHE FftUhjLGmgj0JkXCGcQFXn BBfdhnRiXUe1dqXnRHJgYV NpbWVuIEIuICBSZWNlaXZl NCJwkxHmn3KnVNpxrbBoOI XstCXdJYHbmVtzvS5qXoAp WeUkNFqhBV2eACHaF7mjcW AcZJGwDFZzV4ixJgTfmC3z aFxmMlxjZjFcZnMyMFxwcm 53EOM2h5lgfCIjCIrlZlgd xGMlnpW5WFdEYJCDDQpQAs PqXG8jIYcLZjfZVFmNWbjy LJTgRDbitDGZLXmRV4m0XZ OTQN1fGQwbWwz1PI57VFGa KEFzpGKiHTpxJ530LNZeHR luXGYyXGZzMjBcbGFuZzEw MzNcaGljaFxmMlxkYmNoXG EuGTctU3ajIhCfC2PfBOKk XeTxkRZryVCdsUFIy0ymNA NHuJ4zndNDDXGjJElbPSUj XGZzMjBcbGFuZzEwMzNcaG ljaFxmMlxkYmNoXGYyXGxv G3ygGhQyK6WwDQPyLpUisA MqnWHstNdmRarbdUD1MCvf LawepT4tfEYWDQUBMwwYVp ricrVbQA0YKO9ZGT0EqPA8 XIIrlRI4HFLUDA2VeRcFMJ QsLjIsLCwyfHwwfXtcZmxk zoMasFGxCpYceT7vqYflsR 4kTnCxPoAcBOdoTR1mJDGd H9giyTTuBLHwWEFdG4hpXd MryW9fpTnyDAqgHcZxKyPa MFxsdHJjaCAiIGFuZCBkZX PwW81afAZwZLOfrOnfjZ1a SxHzZsJmVGKDFvSHPDD0en 7bi69zwHMgULIrTZm0qmV7 kN6jPLVqNFltKZQwGZBsPp BcbGFuZzEwMzNcaGljaFxm KJfxRoRyQIQgFYooO3rpAp FkD0AhQOFiUvXxeEAvW4td NmBdxIotfI0jCnWxKtPtTO BpcyBvbmUgdGhpbiwgdGFu WPYvnU6eeBquRXKjUJTuyD dmxT3wQbTqNwGdUNhkMI8y TAHtI0cppPIiWFTkBEPdE8 kkRoSvaI2zhVxrELjuYnRf ZnMyMFxsdHJjaCAgcGllY2 UocyksIFxwbGFpblxmMlxm xrOrGHPhEMI2JGVuSnN7QT AuMVxwbGFpblxmMVxmczIw XMudxjtdHGUhVDnfP6riSs YnNLBhuDmhARlyb9HfUDEs JBDnGPejxkFzGEc2keLlOB MyxP6sJXEfzESxcIwbzF0u ZjJcZnMyMCAxXHBsYWluXG YxXGZzMjBcbGFuZzEwMzNc aGljaFxmMVxkYmNoXGYxXG oeL1xrLtNdE6RbKPYgMcHm hUGmQ3evNyGjBTBaFNnaKM YzXGZzMjBcbGFuZzEwMzNc qCetmVxfU7oyEvYdBHAxWB nbW4ilEeEkE0BxDYDrPyHq q9IjiIHzPPB7FcEdYFQdQZ crLRWnpTZqKMAzrrTiu8Sk ICLlLRN5RXoeUDuqpHkvkV FpblxmMFxmczIwXHBsYWlu XGYzXGZzMjBcbGFuZzEwMz VxnTmufNlzT7alYrQpQPMo AHduK7ptMcMkS9CjPLSpJi Rdk6TsdYKkPWG1QcUaZDCi KoQBA1NAK8umUEKdoEQdUS BsYWluXGYyXGZzMjBccGFy PYzua9IpSJM6PB6ofvN2aP 3hRJChlxVcok2sWMPklYjp Rzy3IAHxwZAcTU2tuXilRK relAYKk2VzrBEvtHFrFYE6 YhKuD9sswkHbihx7OXWpqm KtIZSyLPLrS81fwL2jwPEk TD1SDLKfFyD8YBZwis4= [facility] Pathology report microscopic observation Narrative Other stain d4igxGWvKDCnjHCaJuPdZG NtFVFcc8bpRXGexDShPcFb MzNcZnRuYmpcdWMxXGRlZm Mfo9wbx466gTMgc4ruLJEq BsQ7fHLcFRQikNRvZ284TK MxIOifd2kzt2PvTDRrqXVd t8O8YZUBnpeonMt1kYctD5 2um8K9QztbC2hrTKLkQNUu E9YqQM1iQIUsFub8MVC1KP E6XIIdQWHzY7WqCL0wZMOv aHBoEHk0t3jaeAfrVZGlGA M6d3jlLPvszgMqLD3hei5w jIs6s1pvvtSyBDQjKVBulU CSSENfJ3CkzZbkMd8caGv7 hMjaAcrsUXE1Nso5FM0alq 44wfn8lZslXNIsqocmSiW2 IRayPHAzuawcLVr0UQeuCK NmtJD7IKZjwRHdU1CiDGIv HR3skhf4SSN2RBssIQKzXt Z6UGEqlCTcNZJsiNndCCve g310LDB0UxCnKO4iT8Kya3 Q3xW1klSYcDGEkiUDmEjRi QZOxyn4szWNoFXotg5LmYW O9faA1pMTzaXOrLZEnPK75 Wlcec1VvAjzqZFG0MYCxiz Jat8Gkz7szTaKgsvQgL3ct W0GlLMOkROZyKEKnGsXatj Fts9Xxh2VyfOEvuIw0l8my YHLwRQFohJohx5snEKI5BS UaL4L6dPFyc0uwQXggZMCn kPQ8tdL4YMOkjDQlY7TbpH 6rQCImEC3sktv2n9jmZYN9 HZndAIWxVyY6diA8IJSlxU FiJPUmdYbfLLwaq529GDD2 UhVpRAUwx3PoH7UzoYgvP7 2hmNoyG97qROLyxCiwcK0h zQyadM9iRdLaHiJrIGiyzB xwbGFpblxmMVxmczIwXGxh mxvoYYHcXPcxL4mrXwWiQU FilJswFKoak7WkHIJuQDTq FpYzMSytvc6rD07frOKbOA vvhFkxMHMqw63ciYBeeNLa Gp3cpHTxWfmyNHY8 [facility] Vancomycin Level, Randomon 0 10-12-2018 Vancomycin mass conc 18.4 mcg/mL [facility] No established reference range. [facility] CBCon 10-11-2018 Erythrocyte distribution width Entitic volume (RBC) 14.6 % 11.6 - 14.8 % [facility] Hematocrit Volume Fraction (Bld) 26.6 % Low 41 - 53 % [facility] Hemoglobin mass conc (Bld) 8.7 g/dL Low 13.5 - 17.5 g/dL [facility] Interpretation and review of laboratory results Abnormal [facility] MCH Entitic mass (RBC) 31.2 pg 26 - 34 pg [facility] MCHC mass conc (RBC) 32.7 g/dL 31 - 37 g/dL [facility] Comment on above: Cold Agglutinin pres ent MCV Entitic volume (RBC) 95.3 fL 80 - 100 fL [facility] Nucleated RBC #/vol (Bld) 0.00 10*3/uL [facility] Nucleated RBC/100 WBC Ratio (Bld) 0.0 % [facility] Platelet mean volume Entitic volume (Bld) 9.9 fL 9 - 15.5 fL [facility] Platelets #/vol (Bld) 160 10*3/uL [facility] RBC #/vol (Bld) 2.79 10*6/uL Low [facility] WBC #/vol (Bld) 4.58 10*3/uL [facility] Creatinine, Serumon 10-11-19 19 Creatinine mass conc 0.95 mg/dL 0.8 - 1 .3 mg/dL [facility] GFR/1.73 sq M predicted among non-blacks MDRD vol rate/area (S/P/Bld) The eGFR should be used for monitoring renal function only and not for medication dosing. [facility] GFR/1.73 sq M.predicted CKD-EPI vol rate/area (S/P/Bld) 76 >=60 mL/min/1.73 m2 [facility] Interpretation and review of laboratory results Normal [facility] TISSUE EXAMon 10-11-2018 Case Report Surgical Pathology Report Case: [id number] Authorizing Provider: Flynn Mann DPM Collected: 10/08/2018 07:43 AM Ordering Location: [facility] Received: 10/08/2018 01:42 PM Center Periop Pathologist: Shyanne Yoder MD Specimen: Amputation, Foot, Left, Left foot to pathology [facility] Clinical information l8vmtPGsSZDntYCeDwF yMD AoHQOml3bcIVEcfEZkQhRy MzNcZnRuYmpcdWMxXGRlZm Twx1grx790vLFlz0wzIKOf SdB9uOExKOTmmZQuW545r6 qps2ueicPitSX6OYApFPD8 JAtlctRnvcH4MJjcjALnBg W2RBkoxzNhSAfhlyVpdrYw Lsh9DOHwF779FXB5oQtol6 afNTM7SFAyRYMpIwHnRn5p rYDgU442POLcKROCMRTreV g8HTQbufMacqRlbYVWe755 E062k9ogDXNnxpEifKeXzo fzq3zfZ008WPCftSYrtvLx FjOvTNEjyKYxgTB7UWCnTA 4yseqrGnGaPN7honilIfUk FX5ntxt3ZRX2VUpzMWRjHa X3TTNivWLgNSJmqGiiPTzb a917KHS7WNalb8uoj0lkhJ PhVcj4UIOkYvKgOrpgVOwe z7Kun6lqZCGdvt1qSUS6nU KxbXubp1X7dTYkSHFlxPMm lfMaPFMuNnY8YDfdPO1hye 94UTZuLAA7xu4ocXCbxMrm gjIzfEGtWQjlH6FjPFFoh7 73GGRzC9UfKASof8S6zsSc YhDqDTAzqFM4yhA4QBKiRE w0pGPxadK0qoEgfWJcT5qs tG60IaTowFEmQ4MksI28Tx RlaSAeP6XrfW5eTLZpXF4x bnewi3skFKC2THbwTXWaCS X4ThFxDYVwp7TvkirvJDGc x3QvE5YvaBccV94wjQrjC5 5jLTQuvSdqfP3ulEzfaQ9u ZjBcZnMyNFxxbFxwbGFpbl xmMFxmczIwXGxhbmcxMDMz NUubR2cxTkDrPOQotMhcVY akw1InNWJqGWCqLoKaHDKy qDPjz846CQzhklsqQS7dGk xwYXJ9 [facility] Pathology report final diagnosis Narrative c9fuiCKmTIDcbBLxWmZjGI KjDRJcp8taAQDecBQwFsSt MzNcZnRuYmpcdWMxXGRlZm Bzw5tfh025nEDlg0zcMVCj YhF6iPUlUFHjbEWuY195OP YbDNwwl2iqb2QlWSMpcBPv j4W9GSNVxxptfQw9uAawN5 8ii1F4FjikC9coLXXnAFev BZBeNDrywILqTSG0GEJiDE N5NMdqimVslvL9EDxawHQh GhY6MJi8p0pvjKtgRMGgBM A3o2reNAppvpNmHY3ifx1x vYz2g4dyfxDjQQSsXUBdhL PZTIInJ0NvcSyoIh3rwDk2 tNiaDzuzLDO8Wzq0TI1acf 37gsd4eNnaYXJlczsfVmZ4 FOlvQHUqbpmwRVt9KWblDZ JnbDcyMFxtYXJncjcyMFxt HVGnfXX4NTGxoGAjD5UiTN BrQRsmLORfcnc3PcGgNu7b nXEviUQndi4cqs49PRB9f5 HfgJrcGLX5DAV1VeAqUq1r kKYhBCZlGE4hIuWtuEPvQC Mote62dVsxAGgdekUrpP3e YmRiXGZldDRcYWVuZGRvY1 asOmRoifSsL9elB8GpHZPu FXYvBDJrMbMpwpZcn5Ssu0 WxxWUwsHb1k7onKBPwJECe cNkys4ysJUS8JESzC8P7pC Luc4gtERscQXMytPN6ziai OArjGLGlbgK7gkjmQQaeJQ BaiXE9zzC3NTTjxLXxP8Sv yA4kQRAqQKibWZIabni5Wc LnRg1saTQlmVYuj6PcvPBv PQsyV95ao159LTFmgoAjH0 xwbGFpblxwbGFpblxmMFxm xeNjKCLkemVsh1TsDHVbHX U9RWmgXOcrkLRrSJQqzBlz h8miJ3PuqOQvNQHrBBsdRD EqKSVeVoTdtGdqsM5wOvIr HuYhYOxfZM3dUTAhK0uxeI YfCGSjTEEzS8wqLlZjgD2j aFxmMVxjZjFcZnMyMFxiXH BhclxwbGFpblxmMVxmczIy OKitzclfMUHpXVhnB1elOt OuCMCitSwgBOots6IyFLMs XGNmMVxmczIyXGIgTGVmdC Dfr461WROexQD6tUF7kK3a XHBsYWluXGYxXGZzMjJcbG FuZzEwMzNcaGljaFxmMVxk DfZxZCFzRHfiY9vgHlZvY8 AxMABhErTraQOfU1liHrS4 XHBsYWluXGYxXGZzMjJcbG FuZzEwMzNcaGljaFxmMVxk KnQtNYHsWFypR2veNrTvM2 YxXGZzMjJcYlxwYXJccGFy MTWxozQyj0SsOLYxFRR0HI xzMFxxbFxwbGFpblxmMFxm czIwXHBsYWluXGYxXGZzMj JcbGFuZzEwMzNcaGljaFxm JPgcSvRdILRyUCecB4dnSz VaV4KhBYIoAjBqWlOqLGUi KPHWpYDhsbWrhzXdg39dcZ M4aUAdbHOkSQ4dURGbanSl doMvil8fyKQrECZxkbxdhE FpblxmMFxmczIwXHBhclxw YXJ9 [facility] Pathology report gross observation Narrative y0ophHRqDPLufYEbKaPtJF GvTYUae5gvNTWttRJoLgXy MzNcZnRuYmpcdWMxXGRlZm Kkb9aqt599zZNgw4tbVSBb YcS9gQLuTWUggWNfI609JA WmOGcncb4cVW1uQGFbjCNm w2H3ITPTnghzjEq1d4aiLt YtYfI7qYKiEGvmM5nnrtRf hESyXWWxWIv2hN33GQGvtZ 9ydGJsIDtccmVkMFxncmVl kjFwIhl2RSSbK5yhZVCiLE FrT6WoPJ7wVDYoWdn6PER0 JVJ3NRWjQCVfCEvhgsHdlq ScAJbtrYBtIdA0OBo6f7bq tRjfSFJwBVD6c1aiSQddwu ZbKD3zpp8ekDy3l8bjjgGr VBObHBTxeCYEQOHxZ0QrpH fwMq7jnIm4mLykWwgmIGA5 Owp6IK6kvq54cfd0xCsqNF KwodinSkI6XQhoUUCvignk GCx6BUyeFCTneOoyKMrmAJ PhcqltJAguQSKirSM3TQTv vVCrQ6FyYHKtMChhRYDcel s6CnPmOa5jnYBuaCQply7m gu26UQG2z9LkkZucTKV3ZG M5HbRtTm2ooNQaCGOxMM8u EkJtvEHxQFYfte11lHqfRD zzwmDfnT6dXoUyIUIwbGNe DPFdQQWsW0iiNxMqcqBoB3 hrJ8JaZLVwTEXzUSBsQoDi mrZjg9Hwj1JwaDYkgBe7v5 uoSHGrJUXhhOnow6teBUY2 JNVnL0V1rLFsc0xoKPoqBF EaqBC6gqvbPCmaARNtsvM5 cqweMOooQGRtsWE5scM7XQ GinEHjF8NyyY7mOEKdXXte HRRiitu0UdMxUq9nnKVsdK Jaw6VvmYScPDecE97zp668 RIFuqjTlB7kkmPZjcdxlcL FpblxmMFxmczIwXHFsXHBs YWluXGYwXGZzMjBccGxhaW 9uXmMoQtImNHlkCF1vWUVh H3npbKRbFJTwMDOlL7chTn CpsI5iuPvzJAmmUcVrSoJt MFxsdHJjaCBSZWNlaXZlZC NscxJis2SgPPptjeKiCFFh tYHfKEAqwCztkR4sNpLbAu KrIHptBI0qKFApA4rodPBb FTBiEHLfM7ovBwVqsF6bsM gzPIijIlLeLzSrOUyzeq57 LOQ9r6vliJSaDOvqSpwytJ CpmbU4ETnZJICBHYqMFzDh LD6vLHuXQrvBANhKFgwyKL MgCUmpxOFTXWkMP7z2WYIZ WG4zADtbRsz6KY51PQJdRU EqvEHwPBgpU964VRLcBCja XGYxXGZzMjBcbGFuZzEwMz NcaGljaFxmMVxkYmNoXGYx TWgzA1huXlMzP2QwTRUhAf GjtJYwoYFkeZQFc6jxVEFP eI7gumUJQXPlWFybSCCwNP ZzMjBcbGFuZzEwMzNcaGlj aFxmMVxkYmNoXGYxXGxvY2 hnJwUxL8YrNSKeIwAzyCIk iFWymErxOoulwAK5DSftFb aifN7okWDMWXSRSetREytk flAuYT3RNI4WQY8FqIJ5PW SnzRA4QBTQFU3YnDiETOHy LjIsLCwyfHwxfXtcZmxkcn AsbWBeGbWbfM9soPevqR6h UjPlCuJcYExqMM7tWGYjC6 uxfFVdDDHjNBZcZ1wsZbMv oN8boWmbJUwjXsPuNsWpNL xsdHJjaCAiIGFuZCBkZXNp O15wbLYkCGRwjYrbzP1oCd VvFeAwOSQyBSC9YWFzb5Ph OB2mrZUcdFfyfwiocDDnla xmMVxmczIwXGxhbmcxMDMz UVvcP3hkEjGzOXVvuVbaCG rrz1HiOOYqRYLjBYhggoFz CTo4cvXvNPAdwLeuaS8mHp JcZnMyMCAgaXMgYSBkaXNh fnBkZ5UkUPYsJCNjEYW0EQ GttbHsd765GCDmPIO9PMxq INO0REHdE20jWDZVpRQhk3 asbwPodsL8OX5df4ocnDYs KKwbhC1axQKuIkXeBXbbRY JguB6pp65rjNhvLQAjXNCf JO7mXDJgIITqlDA4PRyvzC IuTtJaXiO6hSWsRA4wd1Xe CNZ1azJhJ2Rxm4MphFaeIE Uve7GekASwK6Trc0IlhVSv gN3mqMPjAQLxFYCfpBUtZV 0dDHNaepUzRd9kJJjydFOn NTHzv8MpNf4qPASxlkSqMU bgoRVpZUVxSGZfiqDsGZ38 EQWpPISvIXwuyGtoQIP3RZ 3cxN9cqTOtdP27HDG7lRns y2PbOGOdbC1juyHmwA2qEL NlcGFyYXRlbHkgcmVjZWl2 ZWQgYXJlIHRoZSBmaXJzdC qqi3Bqp59bKBFdQMD2uOhp BUQquH8uhKJrme6lTk5oUG JgIX5qBZRiqBDwsuYlC0Tz UIWxeEKpiHPbMh9oWM8yEL QqBICuivCzC2IgXYRap5Jf ZmFjZXMgYXJlIGdyYXktd2 vzgYPkFWJyg654kD3dGUdj ABInuHHgJQOti2WvmJEqVM H1zE9gpbo7JAGOLT7bRDWh VFKihdVnePx5LVXgb2ixSA Zph0MqpNfmskWuGYXiyY0l IDKrBPScXyJHAs5xFLTpSF HbuoKlfVm0OCXmXXQji0As MhVotsHlVcazB6hiXGAgtE EkJS6rJXIlq2nyLpADUi7q n14cYMMfPILppS8dObruN3 zqmMxvV2bqkbPoYQOxfY3m CHCcL0HjJ2homUFeXvDFNN 6gAELgRNLolbHojSj1QGTe vNIljIUfBb4aJWvfBZRaQJ tseWKuVBH4JGB0RKLivIAl b6DnaSM8vKQnKTFscMBfYC L5zsRvWm0kdHXwc25pWVAa HQFkdLOqEigdPE4pTO8aLV 7gPSBsntsxRMNmP5UMA8HQ Ag8nnUibCUAkzpanJITiL1 Yhk4YpXYycwKjbIXDzd75y mTYgHs1deKXwOAN0VcSUdW BgloLeIFTgHGY4sI7asYC9 TOpau7ZshPLiBB5hTdXbFV FDbWYqzQXaT2dhNrq3IMId Wb8nJAXVs9v7iGJ5vszuA4 ggNDMyMTQuXHBhcn0= [facility] Pathology report microscopic observation Narrative Other stain v0bjvRDpTXJlxGYwOtUkIJ BrNYLjt3xhHEQtkLWlXxXc MzNcZnRuYmpcdWMxXGRlZm Xdt2fob838rCOii6cyLYRi TvY4pLCnMDEtrQXlS990MC JdHEykh3ipk1ZfTGEzeYXw c6W3WEWZmegrkAm2vIlpM2 2tp4A0HaioR4tbYODcAOWa C5HyCC5wHEFeEvd1VOK0IG F8MBEmCHOoW3SmQX9uZLVn yVCtYGx3c7ceeQvhYBAwRS R2z4kbMVnjzyQaCQ1lfy6x iHa7l7mnbhSlLYRtLYFciQ NRYVBxL8DoeYovRk0ieCe7 pSkmIitxDEI6Pka5VE7tnj 30jkr0hXayKAFequmrVbN7 XXrcEPFphcxyRXb4VPgwRQ FdlXH8ILPhsJRpL9PkFIOr SF7jzgz1CEK6BUuyPCFdNa G2JRIkiMDrJKSqoPevIKxo r939QRE8CjBiSE9mF0Dot3 S0oO5uvIXjXTFrdGJkDdJa RIXliy0ulTAmNPepe0QnEK O5kwA3pKHcbMAfXMAnDD26 Zfvba5FwOiukTZI7ESJxll Lls7Ogw5dyDeZwasXqD0jd X7TnSIEnOPFhUGFmGoZzie Src5Aap5PklJBomTc9p1ri YCFoHWIbvVvwm5icULI4RE QhI4P6tHSkm8xyPLsyZADk nDM5oaA2LIRzgSJqH4RwrU 9qMWJcIT3qmtl1d1eyKSF3 AMdhKJBmVdZ6naS8YEKuiL FdOXUstRmcAPpkc232VRR0 TgAlLAVjp8YsS4PmxUzvG4 6lrCemQ70qDOCcfEygjM8x wAxpbE2uWsOmYaVxZZvkyZ xwbGFpblxmMVxmczIwXGxh gswhCTNcTNzgU4xfCaCoQF HjiOslFCpqr5BxRAMqBDXj DmVdTHtsgv5rL72uvCQkLF zzyCmkGLGns74feIWieSGz Ik8vyIExTncuKEA0 [facility] Vancomycin Level, Randomon 0 10-11-2018 Vancomycin mass conc 14.3 mcg/mL [facility] established reference range. [facility] XR Foot Left 2 Viewson 10-11 EXAMINATION: [...] the lateral malleolus. Overlying casting obscures detail. 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 Surgical drain present. [employer] Workstation ID: [id number] [facility] Kin, Anton In Baljit Young - 10/11/2018 8:39 AM EST EXAMINATION: 2 [...] the midfoot Chopart articulations. Surgical drain present. [employer] Workstation ID: [id number] [facility] Creatinine, Serumon 10-10-19 19 Creatinine mass conc 1.06 mg/dL 0.8 - 1 .3 mg/dL [facility] GFR/1.73 sq M predicted among non-blacks MDRD vol rate/area (S/P/Bld) The eGFR should be used for monitoring renal function only and not for medication dosing. [facility] GFR/1.73 sq M.predicted CKD-EPI vol rate/area (S/P/Bld) 66 >=60 mL/min/1.73 m2 [facility] Interpretation and review of laboratory results Normal [facility] ECG 12-LEADon 10-10-2018 Atrial Rate 72 BPM [facility] P [place] -163 degrees [facility] P-R Interval 162 ms [facility] Q-T Interval 418 ms [facility] QRS Duration 98 ms [facility] QTC Calculation (Bezet) 457 ms [facility] R [place] 137 degrees [facility] T [place] 134 degrees [facility] Ventricular Rate 72 BPM [facility] th Suspect arm lead reversal, interpretation assumes no reversal Unusual P axis, possible ectopic atrial rhythm Lateral infarct , age undetermined Abnormal ECG When compared with ECG of 05-SEP-2018 13:28, Ectopic atrial rhythm has replaced Sinus rhythm QRS axis Shifted right Confirmed by Maxim Ward M.D. ([id number]) on 10/10/2018 1:34:17 PM [facility] Hemoglobin and Hematocriton 10-10-2018 Hematocrit Volume Fraction (Bld) 25.1 % Low 41 - 53 % [facility] Comment on above: PRE-WAMED FOR COLD A GGLUTININ Hemoglobin mass conc (Bld) 8.2 g/dL Low 13.5 - 17.5 g/dL [facility] Interpretation and review of laboratory results Abnormal [facility] Hematocrit Volume Fraction (Bld) 24.0 % Low 41 - 53 % [facility] Hemoglobin mass conc (Bld) 8.3 g/dL Low 13.5 - 17.5 g/dL [facility] Interpretation and review of laboratory results Abnormal [facility] Vancomycin Level, T[place] 0 10-10-2018 Interpretation and review of laboratory results Abnormal [facility] Vancomycin trough mass conc 27.4 ug/mL Critically high [facility] XR Chest 1 Viewon 10-10-2018 Interface, Rad [...] of underlying COPD. TRP/jw Workstation ID: [id number] [facility] 1. Increased bibasil ar pulmonary opacities may represent atelectasis, pneumonia, and/or aspiration. Recommend radiographic follow-up to complete resolution. 2. Findings suggestive of underlying COPD. TRP/Advanced Image Enhancement Workstation ID: [id number] [facility] EXAMINATION: SINGLE XRAY VIEW OF THE CHEST [...] pneumothorax. No evidence of acute osseous abnormalities. [facility] Basic Metabolic Panelon 09-28 Anion gap molar conc 16 mmol/L 10 - 20 mmol/L [facility] Calcium mass conc 8.6 mg/dL 8.4 - 10.2 mg/dL [facility] Chloride molar conc 106 mmol/L 98 - 108 mmol/L [facility] Creatinine mass conc 0.90 mg/dL 0.8 - 1 .3 mg/dL [facility] GFR/1.73 sq M predicted among non-blacks MDRD vol rate/area (S/P/Bld) The eGFR should be used for monitoring renal function only and not for medication dosing. [facility] GFR/1.73 sq M.predicted CKD-EPI vol rate/area (S/P/Bld) 81 >=60 mL/min/1.73 m2 [facility] Glucose mass conc 111 mg/dL High 65 - 99 mg/dL [facility] HCO3 molar conc 23 mmol/L 21 - 32 mmol/L [facility] Interpretation and review of laboratory results Abnormal [facility] Potassium molar conc 4.2 mmol/L 3.5 - 5 .1 mmol/L [facility] Sodium molar conc 141 mmol/L 135 - 145 mmol/L [facility] Urea nitrogen mass conc 9 mg/dL 8 - 25 mg/dL [facility] Urea nitrogen/Creatinine mass ratio 10.0 mg/mg [facility] CBCon 10-09-2018 Erythrocyte distribution width Entitic volume (RBC) 15.3 % High 11.6 - 14.8 % [facility] Hematocrit Volume Fraction (Bld) 27.7 % Low 41 - 53 % [facility] Hemoglobin mass conc (Bld) 8.9 g/dL Low 13.5 - 17.5 g/dL [facility] Interpretation and review of laboratory results Abnormal [facility] MCH Entitic mass (RBC) 31.2 pg 26 - 34 pg [facility] MCHC mass conc (RBC) 32.1 g/dL 31 - 37 g/dL [facility] Comment on above: Cold Agglutinin pres ent MCV Entitic volume (RBC) 97.2 fL 80 - 100 fL [facility] Nucleated RBC #/vol (Bld) 0.00 10*3/uL [facility] Nucleated RBC/100 WBC Ratio (Bld) 0.0 % [facility] Platelet mean volume Entitic volume (Bld) 9.7 fL 9 - 15.5 fL [facility] Platelets #/vol (Bld) 187 10*3/uL [facility] RBC #/vol (Bld) 2.85 10*6/uL Low [facility] WBC #/vol (Bld) 5.18 10*3/uL [facility] Creatinine, Serumon 10-09-19 19 Creatinine mass conc 0.95 mg/dL 0.8 - 1 .3 mg/dL [facility] GFR/1.73 sq M predicted among non-blacks MDRD vol rate/area (S/P/Bld) The eGFR should be used for monitoring renal function only and not for medication dosing. [facility] GFR/1.73 sq M.predicted CKD-EPI vol rate/area (S/P/Bld) 76 >=60 mL/min/1.73 m2 [facility] Interpretation and review of laboratory results Normal [facility] Gastrocult Gastricon 019 Hemoglobin.gastrointes tinal Ql (Ciera fld) Positive Abnormal Negative for Occult Blood [facility] Interpretation and review of laboratory results Abnormal [facility] Hemoglobin and Hematocriton 10-09-2018 Hematocrit Volume Fraction (Bld) 23.2 % Low 41 - 53 % [facility] Hemoglobin mass conc (Bld) 8.6 g/dL Low 13.5 - 17.5 g/dL [facility] Interpretation and review of laboratory results Abnormal [facility] XR CHEST PA/APon 10-09-2018 XR CHEST PA/AP [...] on MonOct 10, 2018 8:22:38 AM EST [facility] Comment on above: Order Comment: Reaso n for exam?:Dyspnea Injury/Trauma or Illness?:Illness/Other How long have you had these symptoms (acute/chronic)?:Acute History of cancer?:unk Surgeries, chemotherapy, or radiation?:YES Type of Exam?:Initial Additional signs and symptoms?:na Basic Metabolic Panelon 09-28 Anion gap molar conc 16 mmol/L 10 - 20 mmol/L [facility] Calcium mass conc 9.1 mg/dL 8.4 - 10.2 mg/dL [facility] Chloride molar conc 108 mmol/L 98 - 108 mmol/L [facility] Creatinine mass conc 0.70 mg/dL Low 0.8 - 1 .3 mg/dL [facility] GFR/1.73 sq M predicted among non-blacks MDRD vol rate/area (S/P/Bld) The eGFR should be used for monitoring renal function only and not for medication dosing. [facility] GFR/1.73 sq M.predicted CKD-EPI vol rate/area (S/P/Bld) 90 >=60 mL/min/1.73 m2 [facility] Glucose mass conc 90 mg/dL 65 - 99 mg/dL [facility] HCO3 molar conc 23 mmol/L 21 - 32 mmol/L [facility] Interpretation and review of laboratory results Abnormal [facility] Potassium molar conc 3.8 mmol/L 3.5 - 5 .1 mmol/L [facility] Sodium molar conc 143 mmol/L 135 - 145 mmol/L [facility] Urea nitrogen mass conc 6 mg/dL Low 8 - 25 mg/dL [facility] Urea nitrogen/Creatinine mass ratio 8.6 mg/mg Low [facility] CBCon 10-08-2018 Erythrocyte distribution width Entitic volume (RBC) 15.5 % High 11.6 - 14.8 % [facility] Hematocrit Volume Fraction (Bld) 31.0 % Low 41 - 53 % [facility] Hemoglobin mass conc (Bld) 10.4 g/dL Low 13.5 - 17.5 g/dL [facility] Interpretation and review of laboratory results Abnormal [facility] MCH Entitic mass (RBC) 33.4 pg 26 - [address] [facility] MCHC mass conc (RBC) 33.5 g/dL 31 - 37 g/dL [facility] MCV Entitic volume (RBC) 99.7 fL 80 - 100 fL [facility] Nucleated RBC #/vol (Bld) 0.00 10*3/uL [facility] Nucleated RBC/100 WBC Ratio (Bld) 0.0 % [facility] Platelet mean volume Entitic volume (Bld) 9.7 fL 9 - 15.5 fL [facility] Platelets #/vol (Bld) 202 10*3/uL [facility] Comment on above: Platelets clumped on peripheral smear. Results may be affected RBC #/vol (Bld) 3.11 10*6/uL Low [facility] WBC #/vol (Bld) 3.86 10*3/uL [facility] ECHOCARDIOGRAM COMPLETEon ECHOCARDIOGRAM COMPLETE REPORT ____ Patient: SHERRY Bazan [facility] Rec#: [id number] (Age): 1940(78y) Height: 188(cm)/73(in) Study Date: 10/08/2018 Weight: 99(kg)/218(lbs) Room#: 2456 BSA: [id number] Type: Inpatient Loc: [facility] Echo Lab Sex: M ____ Reading: MD Nikhil Davalos Referring: AARON CHOI DANIEL Paper Pattern Folder: Geovani Matson RDCS, RVT History: Hyperlipidemia Hypertension. Valvular disease. Diagnosis: ICD-10-PCS Encounter for preprocedural cardiovascular examination (Z01.810) Cardiac Complications, not classified (997.1) CPT Code(s): ECHO COMPLETE W/ DOPPLER (40795) HCPCS Code C8923 Echo Full w/ contrast. [...] 0.9) PV peak gradient 3.23 mmHg none MA end-diastolic Vmax 1.41 m/sec none PA end-diastolic pressure 12.95 mmHg none PV acceleration time 77 msec none Electronically Signed at 10/08/2018 17:26:05 by: Emmanuel Connor MD [facility] REPORT ____ Patient: SHERRY Bazan [facility] Rec#: [id number] (Age): 1940(78y) Height: 188(cm)/73(in) Study Date: 10/08/2018 Weight: 99(kg)/218(lbs) Room#: 2456 BSA: [id number] Type: Inpatient Loc: [facility] Echo Lab Sex: M ____ Reading: MD Nikhil Davalos Referring: AARON CHOI DANIEL Paper Pattern Folder: Geovani Matson RDCS, RVT History: Hyperlipidemia Hypertension. Valvular disease. Diagnosis: ICD-10-PCS Encounter for preprocedural cardiovascular examination (Z01.810) Cardiac Complications, not classified (997.1) CPT Code(s): ECHO COMPLETE W/ DOPPLER (93343) HCPCS Code C8923 Echo Full w/ contrast. [...] 0.9) PV peak gradient 3.23 mmHg none MA end-diastolic Vmax 1.41 m/sec none PA end-diastolic pressure 12.95 mmHg none PV acceleration time 77 msec none Electronically Signed at 10/08/2018 17:26:05 by: Emmanuel Connor MD [facility] Interface, Rad In [facility] - 10/08/2018 5:27 PM EST REPORT ____ Patient: SHERRY Bazan [facility] Rec#: [id number] (Age): 1940(78y) Height: 188(cm)/73(in) Study Date: 10/08/2018 Weight: 99(kg)/218(lbs) Room#: 2456 BSA: [id number] Type: Inpatient Loc: [facility] Echo Lab Sex: M ____ Reading: MD Nikhil Davalos Referring: AARON CHOI DANIEL Paper Pattern Folder: Geovani Matson RDCS, RVT History: Hyperlipidemia Hypertension. Valvular disease. Diagnosis: ICD-10-PCS Encounter for preprocedural cardiovascular examination (Z01.810) Cardiac Complications, not classified (997.1) CPT Code(s): ECHO COMPLETE W/ DOPPLER (19658) HCPCS Code C8923 Echo Full w/ contrast. [...] 0.9) PV peak gradient 3.23 mmHg none MA end-diastolic Vmax 1.41 m/sec none PA end-diastolic pressure 12.95 mmHg none PV acceleration time 77 msec none Electronically Signed at 10/08/2018 17:26:05 by: Emmanuel Connor MD [facility] PT/INRon 10-08-2018 INR Coag RelTime (PPP) 1.1 {INR} [facility] Interpretation and review of laboratory results Normal [facility] Prothrombin time (PT) Coag time (PPP) 13.9 s [facility] During the induction phase of oral anticoagulation, the INR may not reflect the anticoagulation status of the patient. Therapeutic ranges for INR's are: Most clinical situations: INR 2.0-3.0 Mechanical Prosthetic Valve: INR 2.5-3.5 Critical: INR >5.0 [facility] XR FOOT LEFT 2 VIEWSon 10-08 XR [...] articulations. Surgical drain present. CASSANDRA/karie Workstation ID: [id number] Dictated by: NAT RHODES on MonOct 08, 2018 1:43:13 PM EST Transcribed by: JAK WATSON on MonOct 08, 2018 2:16:35 PM EST Finalized by: NAT RHODES on MonOct 11, 2018 8:36:[address] [facility] Comment on above: Order Comment: Reaso n for exam?:post-op foot / ankle Injury/Trauma or Illness?:Illness/Other How long have you had these symptoms (acute/chronic)?:Unknown History of cancer?:unk Surgeries, chemotherapy, or radiation?:YES Type of Exam?:Ongoing Additional signs and symptoms?:UNL Creatinine, Serumon 10-07-19 19 Creatinine mass conc 0.70 mg/dL Low 0.8 - 1 .3 mg/dL [facility] GFR/1.73 sq M predicted among non-blacks MDRD vol rate/area (S/P/Bld) The eGFR should be used for monitoring renal function only and not for medication dosing. [facility] GFR/1.73 sq M.predicted CKD-EPI vol rate/area (S/P/Bld) 90 >=60 mL/min/1.73 m2 [facility] Interpretation and review of laboratory results Abnormal [facility] Vancomycin Level, Troughon 0 10-07-2018 Interpretation and review of laboratory results Normal [facility] Vancomycin trough mass conc 10.9 ug/mL [facility] XR FOOT LEFT 3+ VIEWS (STAND KHALIF)on 10-06-2018 1. Limited evaluatio n due to overlying dressing material and diffuse osteopenia. No radiographic evidence of soft tissue gas. No radiographic evidence of new area of osseous destruction. 2. No acute osseous abnormalities identified. RECOMMENDATIONS: If further evaluation is clinically warranted, consider MRI or CT. [employer] Workstation ID: [id number] [facility] Interface, Rad In ji Speechq - 10/06/2018 3:46 PM EST [...] is clinically warranted, consider MRI or CT. [employer] Workstation ID: [id number] [facility] EXAMINATION: 3 XRAY VIEWS OF THE LEFT [...] and screw fixation of the distal tibia. [facility] Basic Metabolic Panelon 02-0 Anion gap molar conc 15 mmol/L 10 - 20 mmol/L [facility] Calcium mass conc 9.1 mg/dL 8.4 - 10.2 mg/dL [facility] Chloride molar conc 109 mmol/L High 98 - 108 mmol/L [facility] Creatinine mass conc 0.67 mg/dL Low 0.8 - 1 .3 mg/dL [facility] GFR/1.73 sq M predicted among non-blacks MDRD vol rate/area (S/P/Bld) The eGFR should be used for monitoring renal function only and not for medication dosing. [facility] GFR/1.73 sq M.predicted CKD-EPI vol rate/area (S/P/Bld) 91 >=60 mL/min/1.73 m2 [facility] Glucose mass conc 92 mg/dL 65 - 99 mg/dL [facility] HCO3 molar conc 23 mmol/L 21 - 32 mmol/L [facility] Interpretation and review of laboratory results Abnormal [facility] Potassium molar conc 4.2 mmol/L 3.5 - 5 .1 mmol/L [facility] Sodium molar conc 143 mmol/L 135 - 145 mmol/L [facility] Urea nitrogen mass conc 9 mg/dL 8 - 25 mg/dL [facility] Urea nitrogen/Creatinine mass ratio 13.4 mg/mg [facility] CBCon 10-05-2018 Comment PERIPHERAL SMEAR REVIEWED MANUALLY [facility] Erythrocyte distribution width Entitic volume (RBC) 15.5 % High 11.6 - 14.8 % [facility] Hematocrit Volume Fraction (Bld) 31.9 % Low 41 - 53 % [facility] Hemoglobin mass conc (Bld) 11.0 g/dL Low 13.5 - 17.5 g/dL [facility] Interpretation and review of laboratory results Abnormal [facility] MCH Entitic mass (RBC) 34.2 pg High 26 - 34 pg [facility] MCHC mass conc (RBC) 34.5 g/dL 31 - 37 g/dL [facility] MCV Entitic volume (RBC) 99.1 fL 80 - 100 fL [facility] Nucleated RBC #/vol (Bld) 0.00 10*3/uL [facility] Nucleated RBC/100 WBC Ratio (Bld) 0.0 % [facility] Platelet mean volume Entitic volume (Bld) 9.5 fL 9 - 15.5 fL [facility] Platelets #/vol (Bld) 237 10*3/uL [facility] RBC #/vol (Bld) 3.22 10*6/uL Low [facility] WBC #/vol (Bld) 3.95 10*3/uL Low [facility] Prewarmed Patient beck s cold agglutinin. [facility] CBC WITH AUTO DIFFERENTIALon 10-04-2018 Basophils #/vol (Bld) 0.03 10*3/uL [facility] Basophils/100 WBC (Bld) 0.6 % [facility] Eosinophils #/vol (Bld) 0.14 10*3/uL [facility] Eosinophils/100 WBC (Bld) 3.0 % [facility] Erythrocyte distribution width Entitic volume (RBC) 15.7 % High 11.6 - 14.8 % [facility] Hematocrit Volume Fraction (Bld) 32.7 % Low 41 - 53 % [facility] Hemoglobin mass conc (Bld) 11.3 g/dL Low 13.5 - 17.5 g/dL [facility] Immature granulocytes #/vol (Bld) 0.02 10*3/uL [facility] Immature granulocytes/100 WBC (Bld) 0.40 % [facility] Comment on above: The IG parameter is the percentage of metamyelocytes, myelocytes, and promyelocytes. Interpretation and review of laboratory results Abnormal [facility] Lymphocytes #/vol (Bld) 0.94 10*3/uL [facility] Lymphocytes/100 WBC (Bld) 20.3 % [facility] MCH Entitic mass (RBC) 33.6 pg 26 - 34 pg [facility] MCHC mass conc (RBC) 34.6 g/dL 31 - 37 g/dL [facility] MCV Entitic volume (RBC) 97.3 fL 80 - 100 fL [facility] Monocytes #/vol (Bld) 0.46 10*3/uL [facility] Monocytes/100 WBC (Bld) 10.0 % [facility] Neutrophils #/vol (Bld) 3.03 10*3/uL [facility] Neutrophils/100 WBC (Bld) 65.7 % [facility] Nucleated RBC #/vol (Bld) 0.00 10*3/uL [facility] Nucleated RBC/100 WBC Ratio (Bld) 0.0 % [facility] Platelet mean volume Entitic volume (Bld) 8.5 fL Low 9 - 15.5 fL [facility] Platelets #/vol (Bld) 248 10*3/uL [facility] RBC #/vol (Bld) 3.36 10*6/uL [facility] W[facility] #/vol (Bld) 4.62 10*3/uL [facility] CRP, Inflammationon 10-04-19 19 CRP mass conc 12.5 mg/L High 0 - 10 mg/L [facility] Interpretation and review of laboratory results Abnormal [facility] Comprehensive Metabolic Pane alexandra 10-04-2018 Albumin mass conc 3.5 g/dL 3.2 - 5.2 g/dL [facility] ALP enzyme act/vol 109 U/L 40 - 150 U/L [facility] ALT enzyme act/vol 25 U/L 0 - 40 U/L [facility] Anion gap molar conc 16 mmol/L 10 - 20 mmol/L [facility] AST enzyme act/vol 25 U/L 0 - 45 U/L [facility] Bilirubin mass conc 0.5 mg/dL 0 - 1.3 mg/dL [facility] Calcium mass conc 9.3 mg/dL 8.4 - 10.2 mg/dL [facility] Chloride molar conc 104 mmol/L 98 - 108 mmol/L [facility] Creatinine mass conc 0.92 mg/dL 0.8 - 1 .3 mg/dL [facility] GFR/1.73 sq M predicted among non-blacks MDRD vol rate/area (S/P/Bld) The eGFR should be used for monitoring renal function only and not for medication dosing. [facility] GFR/1.73 sq M.predicted CKD-EPI vol rate/area (S/P/Bld) 79 >=60 mL/min/1.73 m2 [facility] Glucose mass conc 94 mg/dL 65 - 99 mg/dL [facility] HCO3 molar conc 26 mmol/L 21 - 32 mmol/L [facility] Interpretation and review of laboratory results Normal [facility] Potassium molar conc 4.6 mmol/L 3.5 - 5 .1 mmol/L [facility] Protein mass conc 6.9 g/dL 6 - 8 g/dL [facility] Sodium molar conc 141 mmol/L 135 - 145 mmol/L [facility] Urea nitrogen mass conc 12 mg/dL 8 - 25 mg/dL [facility] Urea nitrogen/Creatinine mass ratio 13.0 mg/mg [facility] Hemoglobin A1con 10-04-2018 Average glucose Estimated from glycated hemoglobin mass conc (Bld) 88 mg/dL 68 - 126 mg/dL [facility] Hemoglobin A1c/Hemoglobin.total mass fraction (Bld) 4.7 % 4.2 - 6 % [facility] Interpretation and review of laboratory results Normal [facility] Sedimentation Rateon 019 ESR Velocity (Bld) 9 mm/h [facility] Interpretation and review of laboratory results Normal [facility] XR FOOT LEFT 3+ VIEWS (STAND KHALIF)on [...] ID: [id number] Dictated by: MOJGAN PINO on [facility] Oct 04, 2018 7:30:36 PM EST Transcribed by: RACHEAL ARZATE on [facility] Oct 04, 2018 7:42:46 PM EST Finalized by: MOJGAN PINO on [facility] Oct 06, 2018 3:44:[address] [facility] Comment on above: Order Comment: Reaso n for exam?:Left foot gangrene Injury/Trauma or Illness?:Illness/Other How long have you had these symptoms (acute/chronic)?:Unknown History of cancer?:unk Surgeries, chemotherapy, or radiation?:unk Type of Exam?:Unknown Additional signs and symptoms?:Left foot gangrene Albuminon 09-20-2018 Albumin mass conc 3.3 g/dL 3.2 - 5.2 g/dL [facility] Interpretation and review of laboratory results Normal [facility] Otheron 09-20-2018 No acute osseous abnormalities identified. Status post remote ORIF of the distal fibula. Extensive vascular calcifications. WTW/vrs Workstation ID: [id number] [facility] EXAMINATION: XR FOOT LEFT 3+ VIEWS (STANDARD); [...] lesions or bony demineralization. Extensive vascular calcifications. [facility] Interface, Rad In Fu ji Speechq - [...] of the distal fibula. Extensive vascular calcifications. WTSoicos/Vitals ([email or web address]) Workstation ID: [id number] [facility] Interpretation and review of laboratory results Abnormal [facility] Prealbuminon 09-20-2018 Prealbumin mass conc 16.7 mg/dL Low 20 - 40 mg/dL [facility] Protein,Totalon 09-20-2018 Protein mass conc 5.9 g/dL Low 6 - 8 g/dL [facility] Basic Metabolic Panelon 08-28 Anion gap molar conc 12 mmol/L 10 - 20 mmol/L [facility] Calcium mass conc 8.9 mg/dL 8.4 - 10.2 mg/dL [facility] Chloride molar conc 101 mmol/L 98 - 108 mmol/L [facility] Creatinine mass conc 0.56 mg/dL Low 0.8 - 1 .3 mg/dL [facility] GFR/1.73 sq M predicted among non-blacks MDRD vol rate/area (S/P/Bld) The eGFR should be used for monitoring renal function only and not for medication dosing. [facility] GFR/1.73 sq M.predicted CKD-EPI vol rate/area (S/P/Bld) 98 >=60 mL/min/1.73 m2 [facility] Glucose mass conc 117 mg/dL High 65 - 99 mg/dL [facility] HCO3 molar conc 24 mmol/L 21 - 32 mmol/L [facility] Interpretation and review of laboratory results Abnormal [facility] Potassium molar conc 4.0 mmol/L 3.5 - 5 .1 mmol/L [facility] Sodium molar conc 133 mmol/L Low 135 - 145 mmol/L [facility] Urea nitrogen mass conc 12 mg/dL 8 - 25 mg/dL [facility] Urea nitrogen/Creatinine mass ratio 21.4 mg/mg High [facility] CBCon 09-13-2018 Erythrocyte distribution width Entitic volume (RBC) 14.1 % 11.6 - 14.8 % [facility] Hematocrit Volume Fraction (Bld) 25.4 % Low 41 - 53 % [facility] Hemoglobin mass conc (Bld) 8.6 g/dL Low 13.5 - 17.5 g/dL [facility] Interpretation and review of laboratory results Abnormal [facility] MCH Entitic mass (RBC) 31.2 pg 26 - 34 pg [facility] MCHC mass conc (RBC) 33.9 g/dL 31 - 37 g/dL [facility] Comment on above: Cold Agglutinin pres ent MCV Entitic volume (RBC) 92.0 fL 80 - 100 fL [facility] Nucleated RBC #/vol (Bld) 0.00 10*3/uL [facility] Nucleated RBC/100 WBC Ratio (Bld) 0.0 % [facility] Platelet mean volume Entitic volume (Bld) 10.0 fL 9 - 15.5 fL [facility] Platelets #/vol (Bld) 258 10*3/uL [facility] RBC #/vol (Bld) 2.76 10*6/uL Low [facility] WBC #/vol (Bld) 9.14 10*3/uL [facility] Hemoglobin and Hematocriton 09-13-2018 Hematocrit Volume Fraction (Bld) 24.1 % Low 41 - 53 % [facility] Hemoglobin mass conc (Bld) 7.7 g/dL Low 13.5 - 17.5 g/dL [facility] Interpretation and review of laboratory results Abnormal [facility] PT/INRon 09-13-2018 INR Coag RelTime (PPP) 1.2 {INR} High [facility] Interpretation and review of laboratory results Abnormal [facility] Prothrombin time (PT) Coag time (PPP) 14.9 s [facility] During the induction phase of oral anticoagulation, the INR may not reflect the anticoagulation status of the patient. Therapeutic ranges for INR's are: Most clinical situations: INR 2.0-3.0 Mechanical Prosthetic Valve: INR 2.5-3.5 Critical: INR >5.0 [facility] Basic Metabolic Panelon 08-28 Anion gap molar conc 11 mmol/L 10 - 20 mmol/L [facility] Calcium mass conc 8.6 mg/dL 8.4 - 10.2 mg/dL [facility] Chloride molar conc 97 mmol/L Low 98 - 108 mmol/L [facility] Creatinine mass conc 0.78 mg/dL Low 0.8 - 1 .3 mg/dL [facility] GFR/1.73 sq M predicted among non-blacks MDRD vol rate/area (S/P/Bld) The eGFR should be used for monitoring renal function only and not for medication dosing. [facility] GFR/1.73 sq M.predicted CKD-EPI vol rate/area (S/P/Bld) 86 >=60 mL/min/1.73 m2 [facility] Glucose mass conc 142 mg/dL High 65 - 99 mg/dL [facility] HCO3 molar conc 26 mmol/L 21 - 32 mmol/L [facility] Interpretation and review of laboratory results Abnormal [facility] Potassium molar conc 4.7 mmol/L 3.5 - 5 .1 mmol/L [facility] Sodium molar conc 129 mmol/L Low 135 - 145 mmol/L [facility] Urea nitrogen mass conc 12 mg/dL 8 - 25 mg/dL [facility] Urea nitrogen/Creatinine mass ratio 15.4 mg/mg [facility] CBCon 09-12-2018 Erythrocyte distribution width Entitic volume (RBC) 13.8 % 11.6 - 14.8 % [facility] Hematocrit Volume Fraction (Bld) 25.6 % Low 41 - 53 % [facility] Hemoglobin mass conc (Bld) 8.9 g/dL Low 13.5 - 17.5 g/dL [facility] Interpretation and review of laboratory results Abnormal [facility] MCH Entitic mass (RBC) 31.4 pg 26 - 34 pg [facility] MCHC mass conc (RBC) 34.8 g/dL 31 - 37 g/dL [facility] Comment on above: Cold Agglutinin pres ent MCV Entitic volume (RBC) 90.5 fL 80 - 100 fL [facility] Nucleated RBC #/vol (Bld) 0.00 10*3/uL [facility] Nucleated RBC/100 WBC Ratio (Bld) 0.0 % [facility] Platelet mean volume Entitic volume (Bld) 10.0 fL 9 - 15.5 fL [facility] Platelets #/vol (Bld) 272 10*3/uL [facility] RBC #/vol (Bld) 2.83 10*6/uL Low [facility] WBC #/vol (Bld) 10.20 10*3/uL [facility] alth While on heparin [facility] Erythrocyte distribution width Entitic volume (RBC) 14.1 % 11.6 - 14.8 % [facility] Hematocrit Volume Fraction (Bld) 24.2 % Low 41 - 53 % [facility] Hemoglobin mass conc (Bld) 8.2 g/dL Low 13.5 - 17.5 g/dL [facility] Interpretation and review of laboratory results Abnormal [facility] MCH Entitic mass (RBC) 30.5 pg 26 - 34 pg [facility] MCHC mass conc (RBC) 33.9 g/dL 31 - 37 g/dL [facility] Comment on above: Cold Agglutinin pres ent MCV Entitic volume (RBC) 90.0 fL 80 - 100 fL [facility] Nucleated RBC #/vol (Bld) 0.00 10*3/uL [facility] Nucleated RBC/100 WBC Ratio (Bld) 0.0 % [facility] Platelet mean volume Entitic volume (Bld) 9.8 fL 9 - 15.5 fL [facility] Platelets #/vol (Bld) 246 10*3/uL [facility] RBC #/vol (Bld) 2.69 10*6/uL Low [facility] WBC #/vol (Bld) 9.04 10*3/uL [facility] Hemoglobin and Hematocriton 09-12-2018 Hematocrit Volume Fraction (Bld) 20.5 % Low 41 - 53 % [facility] Hemoglobin mass conc (Bld) 8.1 g/dL Low 13.5 - 17.5 g/dL [facility] Comment on above: Peripheral smear rev iewed manually Interpretation and review of laboratory results Abnormal [facility] PT/INRon 09-12-2018 INR Coag RelTime (PPP) 1.2 {INR} High [facility] Interpretation and review of laboratory results Abnormal [facility] Prothrombin time (PT) Coag time (PPP) 14.6 s [facility] During the induction phase of oral anticoagulation, the INR may not reflect the anticoagulation status of the patient. Therapeutic ranges for INR's are: Most clinical situations: INR 2.0-3.0 Mechanical Prosthetic Valve: INR 2.5-3.5 Critical: INR >5.0 [facility] Basic Metabolic Panelon 08-28 Anion gap molar conc 15 mmol/L 10 - 20 mmol/L [facility] Calcium mass conc 8.9 mg/dL 8.4 - 10.2 mg/dL [facility] Chloride molar conc 95 mmol/L Low 98 - 108 mmol/L [facility] Creatinine mass conc 0.65 mg/dL Low 0.8 - 1 .3 mg/dL [facility] GFR/1.73 sq M predicted among non-blacks MDRD vol rate/area (S/P/Bld) The eGFR should be used for monitoring renal function only and not for medication dosing. [facility] GFR/1.73 sq M.predicted CKD-EPI vol rate/area (S/P/Bld) 93 >=60 mL/min/1.73 m2 [facility] Glucose mass conc 114 mg/dL High 65 - 99 mg/dL [facility] HCO3 molar conc 26 mmol/L 21 - 32 mmol/L [facility] Interpretation and review of laboratory results Abnormal [facility] Potassium molar conc 4.8 mmol/L 3.5 - 5 .1 mmol/L [facility] Comment on above: Slightly Hemolyzed Sodium molar conc 131 mmol/L Low 135 - 145 mmol/L [facility] Urea nitrogen mass conc 11 mg/dL 8 - 25 mg/dL [facility] Urea nitrogen/Creatinine mass ratio 16.9 mg/mg [facility] CBCon 09-11-2018 Erythrocyte distribution width Entitic volume (RBC) 13.3 % 11.6 - 14.8 % [facility] Hematocrit Volume Fraction (Bld) 24.4 % Low 41 - 53 % [facility] Hemoglobin mass conc (Bld) 8.1 g/dL Low 13.5 - 17.5 g/dL [facility] Interpretation and review of laboratory results Abnormal [facility] MCH Entitic mass (RBC) 30.5 pg 26 - 34 pg [facility] MCHC mass conc (RBC) 33.2 g/dL 31 - 37 g/dL [facility] Comment on above: Cold Agglutinin pres ent MCV Entitic volume (RBC) 91.7 fL 80 - 100 fL [facility] Nucleated RBC #/vol (Bld) 0.00 10*3/uL [facility] Nucleated RBC/100 WBC Ratio (Bld) 0.0 % [facility] Platelet mean volume Entitic volume (Bld) 9.8 fL 9 - 15.5 fL [facility] Platelets #/vol (Bld) 249 10*3/uL [facility] RBC #/vol (Bld) 2.66 10*6/uL Low [facility] WBC #/vol (Bld) 7.28 10*3/uL [facility] PREPARE RBCon 09-11-2018 ABO and Rh group Nom (Bld) O Pos [facility] ABO and Rh group Nom (Bld) 5100 [facility] Cross Match Compatible [facility] Protein mass conc Red Blood Cells [facility] Protein mass conc [id number] [facility] Status Info Transfused [facility] Unit Number [id number] [facility] PT/INRon 09-11-2018 INR Coag RelTime (PPP) 1.2 {INR} High [facility] Interpretation and review of laboratory results Abnormal [facility] Prothrombin time (PT) Coag time (PPP) 14.7 s [facility] During the induction phase of oral anticoagulation, the INR may not reflect the anticoagulation status of the patient. Therapeutic ranges for INR's are: Most clinical situations: INR 2.0-3.0 Mechanical Prosthetic Valve: INR 2.5-3.5 Critical: INR >5.0 [facility] Type and Screenon 09-11-2018 ABO and Rh group Nom (Bld) O Positive [facility] Blood group antibody screen Ql Negative [facility] Specimen Expires 09/14/2018 23:59 EST [facility] Basic Metabolic Panelon 08-28 Anion gap molar conc 13 mmol/L 10 - 20 mmol/L [facility] Calcium mass conc 8.9 mg/dL 8.4 - 10.2 mg/dL [facility] Chloride molar conc 99 mmol/L 98 - 108 mmol/L [facility] Creatinine mass conc 0.67 mg/dL Low 0.8 - 1 .3 mg/dL [facility] GFR/1.73 sq M predicted among non-blacks MDRD vol rate/area (S/P/Bld) The eGFR should be used for monitoring renal function only and not for medication dosing. [facility] GFR/1.73 sq M.predicted CKD-EPI vol rate/area (S/P/Bld) 91 >=60 mL/min/1.73 m2 [facility] Glucose mass conc 116 mg/dL High 65 - 99 mg/dL [facility] HCO3 molar conc 27 mmol/L 21 - 32 mmol/L [facility] Interpretation and review of laboratory results Abnormal [facility] Potassium molar conc 4.6 mmol/L 3.5 - 5 .1 mmol/L [facility] Sodium molar conc 134 mmol/L Low 135 - 145 mmol/L [facility] Urea nitrogen mass conc 12 mg/dL 8 - 25 mg/dL [facility] Urea nitrogen/Creatinine mass ratio 17.9 mg/mg [facility] CBCon 09-10-2018 Erythrocyte distribution width Entitic volume (RBC) 13.2 % 11.6 - 14.8 % [facility] Hematocrit Volume Fraction (Bld) 22.2 % Low 41 - 53 % [facility] Hemoglobin mass conc (Bld) 7.6 g/dL Low 13.5 - 17.5 g/dL [facility] Interpretation and review of laboratory results Abnormal [facility] MCH Entitic mass (RBC) 32.5 pg 26 - 34 pg [facility] MCHC mass conc (RBC) 34.2 g/dL 31 - 37 g/dL [facility] MCV Entitic volume (RBC) 94.9 fL 80 - 100 fL [facility] Nucleated RBC #/vol (Bld) 0.00 10*3/uL [facility] Nucleated RBC/100 WBC Ratio (Bld) 0.0 % [facility] Platelet mean volume Entitic volume (Bld) 9.3 fL 9 - 15.5 fL [facility] Platelets #/vol (Bld) 246 10*3/uL [facility] RBC #/vol (Bld) 2.34 10*6/uL Low [facility] WBC #/vol (Bld) 7.13 10*3/uL [facility] While on heparin [facility] Erythrocyte distribution width Entitic volume (RBC) 13.2 % 11.6 - 14.8 % [facility] Hematocrit Volume Fraction (Bld) 22.0 % Low 41 - 53 % [facility] Hemoglobin mass conc (Bld) 7.5 g/dL Low 13.5 - 17.5 g/dL [facility] Interpretation and review of laboratory results Abnormal [facility] MCH Entitic mass (RBC) 32.1 pg 26 - 34 pg [facility] MCHC mass conc (RBC) 34.1 g/dL 31 - 37 g/dL [facility] MCV Entitic volume (RBC) 94.0 fL 80 - 100 fL [facility] Nucleated RBC #/vol (Bld) 0.00 10*3/uL [facility] Nucleated RBC/100 WBC Ratio (Bld) 0.0 % [facility] Platelet mean volume Entitic volume (Bld) 9.2 fL 9 - 15.5 fL [facility] Platelets #/vol (Bld) 234 10*3/uL [facility] RBC #/vol (Bld) 2.34 10*6/uL Low [facility] WBC #/vol (Bld) 7.34 10*3/uL [facility] EKGon 09-10-2018 Ordered by an unspecified provider. [facility] PT/INRon 09-10-2018 INR Coag RelTime (PPP) 1.2 {INR} High [facility] Interpretation and review of laboratory results Abnormal [facility] Prothrombin time (PT) Coag time (PPP) 14.4 s [facility] During the induction phase of oral anticoagulation, the INR may not reflect the anticoagulation status of the patient. Therapeutic ranges for INR's are: Most clinical situations: INR 2.0-3.0 Mechanical Prosthetic Valve: INR 2.5-3.5 Critical: INR >5.0 [facility] US Doppler ankle/brachial in dexon 09-10-2018 Non-Invasive Vascula r ____ Patient: SHERRY Bazan [facility] Rec#: [id number] (Age): 1940(78y) Study Date: 09/10/2018 Room#: 8506 Type: Inpatient Sex: M ____ Reading: R[place] Reading: Ben Hahn MD, RPVI Referring: Esau Alejandro Point Of Care Technician: Andre Madrid RDALBERT/RVLatricia Procedure Info: [id number] Study Quality: Lower Arterial Doppler: adequate ____ [...] 09/10/2018 17:30:46 by: Ben Hahn MD, NATANAEL [facility] Interface, Rad In [facility] Xper Echopacs - 09/10/2018 5:37 PM EST Non-Invasive Vascular ____ Patient: SHERRY TRISTIN Hortensia [facility] Rec#: [id number] (Age): 1940(78y) Study Date: 09/10/2018 Room#: 8506 Type: Inpatient Sex: M ____ Reading: RICO FARFAN Reading: Ben Hahn MD, JEOVANYVI Referring: Esau Alejandro Point Of Care Technician: Andre Madrid RDCS/RVLatricia Procedure Info: [id number] Study Quality: Lower Arterial Doppler: adequate ____ [...] 09/10/2018 17:30:46 by: Ben Hahn MD, RPVI [facility] Basic Metabolic Panelon 08-28 Anion gap molar conc 12 mmol/L 10 - 20 mmol/L [facility] Calcium mass conc 8.9 mg/dL 8.4 - 10.2 mg/dL [facility] Chloride molar conc 99 mmol/L 98 - 108 mmol/L [facility] Creatinine mass conc 0.71 mg/dL Low 0.8 - 1 .3 mg/dL [facility] GFR/1.73 sq M predicted among non-blacks MDRD vol rate/area (S/P/Bld) The eGFR should be used for monitoring renal function only and not for medication dosing. [facility] GFR/1.73 sq M.predicted CKD-EPI vol rate/area (S/P/Bld) 89 >=60 mL/min/1.73 m2 [facility] Glucose mass conc 111 mg/dL High 65 - 99 mg/dL [facility] HCO3 molar conc 28 mmol/L 21 - 32 mmol/L [facility] Interpretation and review of laboratory results Abnormal [facility] Potassium molar conc 4.3 mmol/L 3.5 - 5 .1 mmol/L [facility] Sodium molar conc 135 mmol/L 135 - 145 mmol/L [facility] Urea nitrogen mass conc 13 mg/dL 8 - 25 mg/dL [facility] Urea nitrogen/Creatinine mass ratio 18.3 mg/mg [facility] CBCon 09-09-2018 Erythrocyte distribution width Entitic volume (RBC) 13.2 % 11.6 - 14.8 % [facility] Hematocrit Volume Fraction (Bld) 23.0 % Low 41 - 53 % [facility] Hemoglobin mass conc (Bld) 7.7 g/dL Low 13.5 - 17.5 g/dL [facility] Comment on above: Cold Agglutinin pres ent Interpretation and review of laboratory results Abnormal [facility] MCH Entitic mass (RBC) 30.4 pg 26 - 34 pg [facility] MCHC mass conc (RBC) 33.5 g/dL 31 - 37 g/dL [facility] MCV Entitic volume (RBC) 90.9 fL 80 - 100 fL [facility] Nucleated RBC #/vol (Bld) 0.00 10*3/uL [facility] Nucleated RBC/100 WBC Ratio (Bld) 0.0 % [facility] Platelet mean volume Entitic volume (Bld) 9.4 fL 9 - 15.5 fL [facility] Platelets #/vol (Bld) 207 10*3/uL [facility] RBC #/vol (Bld) 2.53 10*6/uL Low [facility] WBC #/vol (Bld) 6.48 10*3/uL [facility] Hemoglobin and Hematocriton 09-09-2018 Hematocrit Volume Fraction (Bld) 22.8 % Low 41 - 53 % [facility] Hemoglobin mass conc (Bld) 8.0 g/dL Low 13.5 - 17.5 g/dL [facility] Interpretation and review of laboratory results Abnormal [facility] Hematocrit Volume Fraction (Bld) 22.9 % Low 41 - 53 % [facility] Hemoglobin mass conc (Bld) 7.7 g/dL Low 13.5 - 17.5 g/dL [facility] Interpretation and review of laboratory results Abnormal [facility] PT/INRon 09-09-2018 INR Coag RelTime (PPP) 1.2 {INR} High [facility] Interpretation and review of laboratory results Abnormal [facility] Prothrombin time (PT) Coag time (PPP) 15.1 s [facility] During the induction phase of oral anticoagulation, the INR may not reflect the anticoagulation status of the patient. Therapeutic ranges for INR's are: Most clinical situations: INR 2.0-3.0 Mechanical Prosthetic Valve: INR 2.5-3.5 Critical: INR >5.0 [facility] Basic Metabolic Panelon 08-28 Anion gap molar conc 16 mmol/L 10 - 20 mmol/L [facility] Calcium mass conc 9.0 mg/dL 8.4 - 10.2 mg/dL [facility] Chloride molar conc 99 mmol/L 98 - 108 mmol/L [facility] Creatinine mass conc 0.56 mg/dL Low 0.8 - 1 .3 mg/dL [facility] GFR/1.73 sq M predicted among non-blacks MDRD vol rate/area (S/P/Bld) The eGFR should be used for monitoring renal function only and not for medication dosing. [facility] GFR/1.73 sq M.predicted CKD-EPI vol rate/area (S/P/Bld) 98 >=60 mL/min/1.73 m2 [facility] Glucose mass conc 189 mg/dL High 65 - 99 mg/dL [facility] HCO3 molar conc 23 mmol/L 21 - 32 mmol/L [facility] Interpretation and review of laboratory results Abnormal [facility] Potassium molar conc 4.5 mmol/L 3.5 - 5 .1 mmol/L [facility] Sodium molar conc 133 mmol/L Low 135 - 145 mmol/L [facility] Urea nitrogen mass conc 8 mg/dL 8 - 25 mg/dL [facility] Urea nitrogen/Creatinine mass ratio 14.3 mg/mg [facility] CBCon 09-08-2018 Erythrocyte distribution width Entitic volume (RBC) 12.9 % 11.6 - 14.8 % [facility] Hematocrit Volume Fraction (Bld) 29.9 % Low 41 - 53 % [facility] Hemoglobin mass conc (Bld) 10.0 g/dL Low 13.5 - 17.5 g/dL [facility] Interpretation and review of laboratory results Abnormal [facility] MCH Entitic mass (RBC) 30.3 pg 26 - 34 pg [facility] MCHC mass conc (RBC) 33.4 g/dL 31 - 37 g/dL [facility] Comment on above: Cold Agglutinin pres ent MCV Entitic volume (RBC) 90.6 fL 80 - 100 fL [facility] Nucleated RBC #/vol (Bld) 0.00 10*3/uL [facility] Nucleated RBC/100 WBC Ratio (Bld) 0.0 % [facility] Platelet mean volume Entitic volume (Bld) 10.5 fL 9 - 15.5 fL [facility] Platelets #/vol (Bld) 209 10*3/uL [facility] RBC #/vol (Bld) 3.30 10*6/uL Low [facility] WBC #/vol (Bld) 11.23 10*3/uL High [facility] PT/INRon 09-08-2018 INR Coag RelTime (PPP) 1.2 {INR} [facility] Interpretation and review of laboratory results Abnormal [facility] Prothrombin time (PT) Coag time (PPP) 14.9 s [facility] During the induction phase of oral anticoagulation, the INR may not reflect the anticoagulation status of the patient. Therapeutic ranges for INR's are: Most clinical situations: INR 2.0-3.0 Mechanical Prosthetic Valve: INR 2.5-3.5 Critical: INR >5.0 [facility] XR Fluoroscopy Timeon 2018 This is an auto finalized result. Please refer to patient chart for further information. [facility] XR OR Angio Addon 09-08-2018 This is an auto finalized result. Please refer to patient chart for further information. [facility] APTTon 09-07-2018 aPTT Coag time (Bld) 74 [facility] aPTT Coag time (Bld) Therapeutic range f or APTT's is 68 - 104 seconds [facility] Interpretation and review of laboratory results Abnormal [facility] aPTT Coag time (Bld) 47 s High [facility] aPTT Coag time (Bld) Therapeutic range f or APTT's is 68 - 104 seconds [facility] aPTT Coag time (Bld) 38 s [facility] aPTT Coag time (Bld) Results checked. Therapeutic range for APTT's is 68 - 104 seconds [facility] Interpretation and review of laboratory results Abnormal [facility] Basic Metabolic Panelon 08-28 Anion gap molar conc 15 mmol/L 10 - 20 mmol/L [facility] Calcium mass conc 9.4 mg/dL 8.4 - 10.2 mg/dL [facility] Chloride molar conc 99 mmol/L 98 - 108 mmol/L [facility] Creatinine mass conc 0.69 mg/dL Low 0.8 - 1 .3 mg/dL [facility] GFR/1.73 sq M predicted among non-blacks MDRD vol rate/area (S/P/Bld) The eGFR should be used for monitoring renal function only and not for medication dosing. [facility] GFR/1.73 sq M.predicted CKD-EPI vol rate/area (S/P/Bld) 90 >=60 mL/min/1.73 m2 [facility] Glucose mass conc 110 mg/dL High 65 - 99 mg/dL [facility] HCO3 molar conc 25 mmol/L 21 - 32 mmol/L [facility] Interpretation and review of laboratory results Abnormal [facility] Potassium molar conc 4.0 mmol/L 3.5 - 5 .1 mmol/L [facility] Sodium molar conc 135 mmol/L 135 - 145 mmol/L [facility] Urea nitrogen mass conc 9 mg/dL 8 - 25 mg/dL [facility] Urea nitrogen/Creatinine mass ratio 13.0 mg/mg [facility] CBCon 09-07-2018 Erythrocyte distribution width Entitic volume (RBC) 12.9 % 11.6 - 14.8 % [facility] Hematocrit Volume Fraction (Bld) 31.6 % Low 41 - 53 % [facility] Hemoglobin mass conc (Bld) 10.8 g/dL Low 13.5 - 17.5 g/dL [facility] Interpretation and review of laboratory results Abnormal [facility] MCH Entitic mass (RBC) 30.9 pg 26 - 34 pg [facility] MCHC mass conc (RBC) 34.2 g/dL 31 - 37 g/dL [facility] Comment on above: Cold Agglutinin pres ent MCV Entitic volume (RBC) 90.3 fL 80 - 100 fL [facility] Nucleated RBC #/vol (Bld) 0.00 10*3/uL [facility] Nucleated RBC/100 WBC Ratio (Bld) 0.0 % [facility] Platelet mean volume Entitic volume (Bld) 10.1 fL 9 - 15.5 fL [facility] Platelets #/vol (Bld) 212 10*3/uL [facility] RBC #/vol (Bld) 3.50 10*6/uL Low [facility] WBC #/vol (Bld) 5.93 10*3/uL [facility] lt Otheron 09-07-2018 Interpretation and review of laboratory results Abnormal [facility] PT/INRon 09-07-2018 INR Coag RelTime (PPP) 1.2 {INR} High [facility] Prothrombin time (PT) Coag time (PPP) 14.7 s High [facility] During the induction phase of oral anticoagulation, the INR may not reflect the anticoagulation status of the patient. Therapeutic ranges for INR's are: Most clinical situations: INR 2.0-3.0 Mechanical Prosthetic Valve: INR 2.5-3.5 Critical: INR >5.0 [facility] XR Chest 1 Viewon 09-07-2018 Interface, Rad In Fu ji Speechq - 09/07/2018 9:53 AM EST EXAMINATION: AP CHEST HISTORY: Hypoxia. COMPARISON: 08/01/2018 from [facility]. 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 Coronary artery stents are visualized. Minimal linear scarring at the lung bases, unchanged. No pneumothorax. No definite pleural effusion no new opacities. IMPRESSION: Stable chest. No acute disease. [employer] Workstation ID: [id number] [facility] EXAMINATION: AP CHES T HISTORY: Hypoxia. COMPARISON: 08/01/2018 from [facility]. 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 Coronary artery stents are visualized. Minimal linear scarring at the lung bases, unchanged. No pneumothorax. No definite pleural effusion no new opacities. [facility] Stable chest. No acu te disease. [employer] Workstation ID: [id number] [facility] ABORH VERIFICATIONon 019 ABO and Rh group Nom (Bld) O Positive [facility] ABO and Rh group Nom (Bld) ABO/Rh Verification [facility] Patient's ABO/Rh is verified. [facility] Basic Metabolic Panelon 08-28 Anion gap molar conc 13 mmol/L 10 - 20 mmol/L [facility] Calcium mass conc 9.5 mg/dL 8.4 - 10.2 mg/dL [facility] Chloride molar conc 101 mmol/L 98 - 108 mmol/L [facility] Creatinine mass conc 0.68 mg/dL Low 0.8 - 1 .3 mg/dL [facility] GFR/1.73 sq M predicted among non-blacks MDRD vol rate/area (S/P/Bld) The eGFR should be used for monitoring renal function only and not for medication dosing. [facility] GFR/1.73 sq M.predicted CKD-EPI vol rate/area (S/P/Bld) 91 >=60 mL/min/1.73 m2 [facility] Glucose mass conc 98 mg/dL 65 - 99 mg/dL [facility] HCO3 molar conc 27 mmol/L 21 - 32 mmol/L [facility] Interpretation and review of laboratory results Abnormal [facility] Potassium molar conc 4.2 mmol/L 3.5 - 5 .1 mmol/L [facility] Sodium molar conc 137 mmol/L 135 - 145 mmol/L [facility] Urea nitrogen mass conc 9 mg/dL 8 - 25 mg/dL [facility] Urea nitrogen/Creatinine mass ratio 13.2 mg/mg [facility] CBCon 09-06-2018 Erythrocyte distribution width Entitic volume (RBC) 13.1 % 11.6 - 14.8 % [facility] Hematocrit Volume Fraction (Bld) 30.7 % Low 41 - 53 % [facility] Hemoglobin mass conc (Bld) 10.4 g/dL Low 13.5 - 17.5 g/dL [facility] Interpretation and review of laboratory results Abnormal [facility] MCH Entitic mass (RBC) 31.0 pg 26 - 34 pg [facility] MCHC mass conc (RBC) 33.9 g/dL 31 - 37 g/dL [facility] Comment on above: Cold Agglutinin pres ent MCV Entitic volume (RBC) 91.6 fL 80 - 100 fL [facility] Nucleated RBC #/vol (Bld) 0.00 10*3/uL [facility] Nucleated RBC/100 WBC Ratio (Bld) 0.0 % [facility] Platelet mean volume Entitic volume (Bld) 9.9 fL 9 - 15.5 fL [facility] Platelets #/vol (Bld) 209 10*3/uL [facility] RBC #/vol (Bld) 3.35 10*6/uL Low [facility] lth WBC #/vol (Bld) 6.34 10*3/uL [facility] While on heparin [facility] Erythrocyte distribution width Entitic volume (RBC) 12.6 % 11.6 - 14.8 % [facility] Hematocrit Volume Fraction (Bld) 32.0 % Low 41 - 53 % [facility] Hemoglobin mass conc (Bld) 10.7 g/dL Low 13.5 - 17.5 g/dL [facility] Comment on above: Peripheral smear rev iewed manually Interpretation and review of laboratory results Abnormal [facility] MCH Entitic mass (RBC) 29.9 pg 26 - [address] [facility] MCHC mass conc (RBC) 33.4 g/dL 31 - 37 g/dL [facility] Comment on above: Cold Agglutinin pres ent MCV Entitic volume (RBC) 89.4 fL 80 - 100 fL [facility] Nucleated RBC #/vol (Bld) 0.00 10*3/uL [facility] Nucleated RBC/100 WBC Ratio (Bld) 0.0 % [facility] Platelet mean volume Entitic volume (Bld) 9.6 fL 9 - 15.5 fL [facility] Platelets #/vol (Bld) 232 10*3/uL [facility] RBC #/vol (Bld) 3.58 10*6/uL Low [facility] WBC #/vol (Bld) 7.03 10*3/uL [facility] Saphenous vein mapping, chace thayer 09-06-2018 Interface, Rad In [facility] Xper Echopacs - 09/06/2018 11:52 AM EST Non-Invasive Vascular ____ Patient: SHERRY Bazan [facility] Rec#: [id number] (Age): 1940(78y) Study Date: 09/06/2018 Room#: 3386 Type: Inpatient Sex: M ____ Reading: Manuel Leonard MD, RPVI, RVT Referring: ARISTEO Point Of Care Technician: Conrad Jeffers RDCS, RVT Procedure Info: [id number] Study Quality: Lower Vein Map: limited Study [...] 11:49:41 by: Manuel Leonard MD, RPVI, RVT [facility] Non-Invasive Vascula r ____ Patient: SHERRY Bazan [facility] Rec#: [id number] (Age): 1940(78y) Study Date: 09/06/2018 Room#: 3386 Type: Inpatient Sex: M ____ Reading: Manuel Leonard MD, RPLUIZA, RVT Referring: ARISTEO Point Of Care Technician: Conrad Jeffers RDCS RVT Procedure Info: [id number] Study Quality: Lower Vein Map: limited Study [...] 11:49:41 by: Manuel Leonard MD, RPVI, RVT [facility] Type and Screenon 09-06-2018 ABO and Rh group Nom (Bld) O Positive [facility] Blood group antibody screen Ql Negative [facility] Specimen Expires 09/09/2018 23:59 EST [facility] APTTon 09-05-2018 aPTT Coag time (Bld) Therapeutic range f or APTT's is 68 - 104 seconds [facility] aPTT Coag time (Bld) 59 [facility] Interpretation and review of laboratory results Abnormal [facility] aPTT Coag time (Bld) 50 s High [facility] aPTT Coag time (Bld) Therapeutic range f or APTT's is 68 - 104 seconds [facility] Basic Metabolic Panelon Anion gap molar conc 14 mmol/L 10 - 20 mmol/L [facility] Calcium mass conc 9.3 mg/dL 8.4 - 10.2 mg/dL [facility] Chloride molar conc 102 mmol/L 98 - 108 mmol/L [facility] Creatinine mass conc 0.65 mg/dL Low 0.8 - 1 .3 mg/dL [facility] GFR/1.73 sq M predicted among non-blacks MDRD vol rate/area (S/P/Bld) The eGFR should be used for monitoring renal function only and not for medication dosing. [facility] GFR/1.73 sq M.predicted CKD-EPI vol rate/area (S/P/Bld) 93 >=60 mL/min/1.73 m2 [facility] Glucose mass conc 91 mg/dL 65 - 99 mg/dL [facility] HCO3 molar conc 25 mmol/L 21 - 32 mmol/L [facility] Potassium molar conc 3.9 mmol/L 3.5 - 5 .1 mmol/L [facility] Sodium molar conc 137 mmol/L 135 - 145 mmol/L [facility] Urea nitrogen mass conc 6 mg/dL Low 8 - 25 mg/dL [facility] Urea nitrogen/Creatinine mass ratio 9.2 mg/mg Low [facility] CARDIAC CATHETERIZATIONon Interface, Rad In [facility] Xper Echopacs - 09/05/2018 4:14 PM EST Patient Name: TRISTIN POWELL Date of : 1940 Procedure Date: 09/05/2018 Physician(s): Ben Hahn MD Cath #: [id number] Ref. 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 Dyslipidemia: Yes Hypertension: Yes Pre-OP Diagnosis/Indication: Deann [...] amputation COMMENTS: No Complications ____ Equipment: Sheath(s) Rated People 5F 10CM PINNACLE SHEATH [employer] MEDICAL 6F 45CM .038 FLEXOR CHECKFLO ANSEL1 SHEATH Wire(s) [employer] .035 X 150CM FIXED J WIRE Catheter(s) [employer] 5F MP TEMPO AQUA CATHETER Other [employer] .035 CXI ANGLED SUPPORT CATHETERS SHER VASCULAR 6F PROGLIDE CLOSURE Peripheral Angiography: Access site: Femoral Right Retrograde arterial with ultrasound guidance Non Selective: Aorta with ilio-fem runoff Selective: Tibioperoneal artery, retrograde - left See Nursing Notes for further details Signed By Ben Hahn MD On 09/05/2018 3:50:45 PM Ben Hahn MD ____ [facility] Patient Name: TRISTIN POWELL Date of : 1940 Procedure Date: 09/05/2018 Physician(s): Ben Hahn MD Cath #: [id number] Ref. 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 Dyslipidemia: Yes Hypertension: Yes Pre-OP Diagnosis/Indication: Dale Class/Limb Ischemia: 4 - Ischemic rest pain [...] amputation COMMENTS: No Complications ____ Equipment: Sheath(s) [employer] People 5F 10CM PINNACLE SHEATH [employer] 6F 45CM .038 FLEXOR CHECKFLO ANSEL1 SHEATH Wire(s) [employer] .035 X 150CM FIXED J WIRE Catheter(s) [employer] 5F MP TEMPO AQUA CATHETER Other [employer] .035 CXI ANGLED SUPPORT CATHETERS SHER VASCULAR 6F PROGLIDE CLOSURE Peripheral Angiography: Access site: Femoral Right Retrograde arterial with ultrasound guidance Non Selective: Aorta with ilio-fem runoff Selective: Tibioperoneal artery, retrograde - left See Nursing Notes for further details Signed By Ben Hahn MD On 09/05/2018 3:50:45 PM Ben Hahn MD ____ [facility] CBCon 09-05-2018 Erythrocyte distribution width Entitic volume (RBC) 12.8 % 11.6 - 14.8 % [facility] Hematocrit Volume Fraction (Bld) 31.8 % Low 41 - 53 % [facility] Hemoglobin mass conc (Bld) 10.7 g/dL Low 13.5 - 17.5 g/dL [facility] Interpretation and review of laboratory results Abnormal [facility] MCH Entitic mass (RBC) 30.5 pg 26 - 34 pg [facility] MCHC mass conc (RBC) 33.6 g/dL 31 - 37 g/dL [facility] [facility] Entitic volume (RBC) 90.6 fL 80 - 100 fL [facility] Nucleated RBC #/vol (Bld) 0.00 10*3/uL [facility] Nucleated RBC/100 WBC Ratio (Bld) 0.0 % [facility] Platelet mean volume Entitic volume (Bld) 9.2 fL 9 - 15.5 fL [facility] Platelets #/vol (Bld) 224 10*3/uL [facility] RBC #/vol (Bld) 3.51 10*6/uL Low [facility] WBC #/vol (Bld) 5.56 10*3/uL [facility] ECG 12-LEADon 09-05-2018 Atrial Rate 88 BPM [facility] P Harvard 48 degrees [facility] P-R Interval 134 ms [facility] Q-T Interval 392 ms [facility] QRS Duration 98 ms [facility] QTC Calculation (Bezet) 474 ms [facility] R Harvard 50 degrees [facility] T Harvard 61 degrees [facility] Ventricular Rate 88 BPM [facility] th Normal sinus rhythm Nonspecific ST and T wave abnormality Abnormal ECG Confirmed by CHAYO TIDWELL MD ([id number]) on 09/05/2018 7:19:56 PM [facility] Atrial Rate 94 BPM [facility] P Harvard 0 degrees [facility] P-R Interval 166 ms [facility] Q-T Interval 386 ms [facility] QRS Duration 94 ms [facility] QTC Calculation (Bezet) 482 ms [facility] R Harvard 41 degrees [facility] T Harvard 46 degrees [facility] Ventricular Rate 94 BPM [facility] th Normal sinus rhythm Prolonged QT Abnormal ECG Confirmed by CHAYO TIDWELL MD ([id number]) on 09/05/2018 6:55:30 PM [facility] Otheron 09-05-2018 Interpretation and review of laboratory results Abnormal [facility] Ultrasound duplex arterial l eg lefton 09-05-2018 Non-Invasive Vascula r ____ Patient: SHERRY Jones Rec#: [id number] (Age): 1940(78y) Study Date: 09/05/2018 Room#: G93 Type: Inpatient Sex: M ____ Reading: Pierce Moreau DO, RPVI Referring: LEVY Point Of Care Technician: Rima Celestin RD, RVT Point Of Care Technician: Deena Pelayo RDCS RVT Procedure Info: [id number] Study Quality: Lower Arterial Duplex: adequate ____ [...] PSV Name Value Units EIA 83.2 cm/sec NURSE RESEARCHER 95.6 cm/sec Profunda 85.5 cm/sec SFA - prox -25 cm/sec SFA - mid -67.2 cm/sec SFA - dist 58.2 cm/sec Popliteal - dist 0 cm/sec COLLEGE OR UNIVERSITY REGISTRAR 6.8 cm/sec Pre Stenosis #1 9.3 cm/sec Within Stenosis #1 67.2 cm/sec Distal Stenois #1 58.2 cm/sec Left Stent #1 Name Value Units Pre 58.2 cm/sec Orig/Prox 0 cm/sec Mid 0 cm/sec Dist 0 cm/sec Distal To 6.8 cm/sec Electronically signed at 09/05/2018 11:55:51 by: Pierce Moreau DO, RPVI [facility] Interface, Rad In Heartlab Xper Echopacs - 09/05/2018 12:10 PM EST Non-Invasive Vascular ____ Patient: SHERRY Bazan [facility] Rec#: [id number] (Age): 1940(78y) Study Date: 09/05/2018 Room#: G93 Type: Inpatient Sex: M ____ Reading: Pierce Moreau DO, RPVI Referring: LEVY Point Of Care Technician: Rima Celestin RDCS, RVT Point Of Care Technician: Deena Pelayo RDCS RVT Procedure Info: [id number] Study Quality: Lower Arterial Duplex: adequate ____ [...] PSV Name Value Units EIA 83.2 cm/sec NURSE RESEARCHER 95.6 cm/sec Profunda 85.5 cm/sec SFA - prox -25 cm/sec SFA - mid -67.2 cm/sec SFA - dist 58.2 cm/sec Popliteal - dist 0 cm/sec COLLEGE OR UNIVERSITY REGISTRAR 6.8 cm/sec Pre Stenosis #1 9.3 cm/sec Within Stenosis #1 67.2 cm/sec Distal Stenois #1 58.2 cm/sec Left Stent #1 Name Value Units Pre 58.2 cm/sec Orig/Prox 0 cm/sec Mid 0 cm/sec Dist 0 cm/sec Distal To 6.8 cm/sec Electronically signed at 09/05/2018 11:55:51 by: Pierce Moreau DO, NATANAEL [facility] APTTon 09-04-2018 aPTT Coag time (Bld) 59 s High [facility] aPTT Coag time (Bld) Therapeutic range f or APTT's is 68 - 104 seconds [facility] Interpretation and review of laboratory results Abnormal [facility] CBCon 09-04-2018 Erythrocyte distribution width Entitic volume (RBC) 12.8 % 11.6 - 14.8 % [facility] Hematocrit Volume Fraction (Bld) 33.3 % Low 41 - 53 % [facility] Hemoglobin mass conc (Bld) 11.2 g/dL Low 13.5 - 17.5 g/dL [facility] Interpretation and review of laboratory results Abnormal [facility] MCH Entitic mass (RBC) 30.2 pg 26 - 34 pg [facility] MCHC mass conc (RBC) 33.6 g/dL 31 - 37 g/dL [facility] Comment on above: Cold Agglutinin pres ent MCV Entitic volume (RBC) 89.8 fL 80 - 100 fL [facility] Nucleated RBC #/vol (Bld) 0.00 10*3/uL [facility] Nucleated RBC/100 WBC Ratio (Bld) 0.0 % [facility] Platelet mean volume Entitic volume (Bld) 10.1 fL 9 - 15.5 fL [facility] Platelets #/vol (Bld) 222 10*3/uL [facility] Comment on above: Peripheral smear rev iewed manually RBC #/vol (Bld) 3.71 10*6/uL Low [facility] lt WBC #/vol (Bld) 6.36 10*3/uL [facility] lt While on heparin [facility] Otheron 09-04-2018 Extra Tube Hold for add-ons. [facility] Comment on above: Auto resulted. XR COMPARISON IMPORTon 09-04 This order has been auto-finalized and does not contain a result. [facility] Vital Signs Date Time Vital Sign Value Performing Clinician Facility 04-23-2025 14:36-0400 Diastolic blood pressure 72 mm[Hg] Mohsen Sarabia MD Work Phone: [facility] 04-23-2025 14:36-0400 Heart rate 64 /min Mohsen Sarabia MD Work Phone: [facility] 04-23-2025 14:36-0400 Systolic blood pressure 162 mm[Hg] Mohsen Sarabia MD Work Phone: [facility] 04-23-2025 14:30-0400 Body height 188 cm Mohsen Sarabia MD Work Phone: [facility] 04-23-2025 14:30-0400 Body mass index (BMI) [Ratio] 31.46 kg/m2 Mohsen Sarabia MD Work Phone: [facility] 04-23-2025 14:30-0400 Body weight 111.13 kg Mohsen Sarabia MD Work Phone: [facility] 04-23-2025 14:30-0400 Respiratory rate 16 /min Mohsen Sarabia MD Work Phone: [facility] 04-23-2025 14:30-0400 SaO2% (BldA) [Mass fraction] 97 % Mohsen Sarabia MD Work Phone: [facility] 04-14-2025 13:27-0400 Body height 188 cm Flash Lovelace MD Work Phone: [facility] 04-14-2025 13:27-0400 Body mass index (BMI) [Ratio] 30.94 kg/m2 Flash Lovelace MD Work Phone: [facility] 04-14-2025 13:27-0400 Body weight 109.32 kg Flash Lovelace MD Work Phone: [facility] 04-14-2025 13:27-0400 Diastolic blood pressure 62 mm[Hg] Flash Lovelace MD Work Phone: [facility] 04-14-2025 13:27-0400 Heart rate 70 /min Flash Lovelace MD Work Phone: [facility] 04-14-2025 13:27-0400 SaO2% (BldA) [Mass fraction] 96 % Flash Lovelace MD Work Phone: [facility] 04-14-2025 13:27-0400 Systolic blood pressure 132 mm[Hg] Flash Lovelace MD Work Phone: [facility] 04-08-2025 11:29-0400 Body height 188 cm Zoë King PA Work Phone: [facility] 04-08-2025 11:29-0400 Body mass index (BMI) [Ratio] 31.35 kg/m2 Zoë Hemmer PA Work Phone: [facility] 04-08-2025 11:29-0400 Body weight 110.77 kg Zoë Hemmer PA Work Phone: [facility] 04-08-2025 11:29-0400 Diastolic blood pressure 68 mm[Hg] Zoë Hemmer PA Work Phone: [facility] 04-08-2025 11:29-0400 Heart rate 70 /min Zoë Hemmer PA Work Phone: [facility] 04-08-2025 11:29-0400 Respiratory rate 18 /min Zoë Hemmer PA Work Phone: [facility] 04-08-2025 11:29-0400 SaO2% (BldA) [Mass fraction] 98 % Zoë Hemmer PA Work Phone: [facility] 04-08-2025 11:29-0400 Systolic blood pressure 146 mm[Hg] Zoë Hemmer PA Work Phone: [facility] 04-02-2025 11:54-0400 Body height 188 cm Mohsen Sarabia MD Work Phone: [facility] 04-02-2025 11:54-0400 Body mass index (BMI) [Ratio] 31.07 kg/m2 Mohsen Sarabia MD Work Phone: [facility] 04-02-2025 11:54-0400 Body weight 109.77 kg Mohsen Sarabia MD Work Phone: [facility] 04-02-2025 11:54-0400 Diastolic blood pressure 65 mm[Hg] Mohsen Sarabia MD Work Phone: [facility] 04-02-2025 11:54-0400 Heart rate 68 /min Mohsen Sarabia MD Work Phone: [facility] 04-02-2025 11:54-0400 Respiratory rate 12 /min Mohsen Sarabia MD Work Phone: [facility] 04-02-2025 11:54-0400 SaO2% (BldA) [Mass fraction] 92 % Mohsen Sarabia MD Work Phone: [facility] 04-02-2025 11:54-0400 Systolic blood pressure 121 mm[Hg] Mohsen Sarabia MD Work Phone: [facility] 03-31-2025 13:24-0400 Body height 188 cm Flash Lovelace MD Work Phone: [facility] 03-31-2025 13:24-0400 Body mass index (BMI) [Ratio] 31.2 kg/m2 Flash Lovelace MD Work Phone: [facility] 03-31-2025 13:24-0400 Body weight 110.22 kg Flash Lovelace MD Work Phone: [facility] 03-31-2025 13:24-0400 Diastolic blood pressure 58 mm[Hg] Flash Lovelace MD Work Phone: [facility] 03-31-2025 13:24-0400 Heart rate 72 /min Flash Lovelace MD Work Phone: [facility] 03-31-2025 13:24-0400 SaO2% (BldA) [Mass fraction] 96 % Flash Lovelace MD Work Phone: [facility] 03-31-2025 13:24-0400 Systolic blood pressure 128 mm[Hg] Flash Lovelace MD Work Phone: [facility] 03-21-2025 14:58-0400 Body temperature 98.1 [degF] Uri Edgar DO Work Phone: [facility] 03-21-2025 14:58-0400 Diastolic blood pressure 73 mm[Hg] Uri Edgar DO Work Phone: [facility] 03-21-2025 14:58-0400 Heart rate 88 /min Uri Edgar DO Work Phone: [facility] 03-21-2025 14:58-0400 Respiratory rate 15 /min Uri Edgar DO Work Phone: [facility] 03-21-2025 14:58-0400 SaO2% (BldA) [Mass fraction] 96 % Uri Edgar DO Work Phone: [facility] 03-21-2025 14:58-0400 Systolic blood pressure 139 mm[Hg] Uri Edgar DO Work Phone: [facility] 03-14-2025 20:34-0400 Body height 188 cm Uri Voss DO Work Phone: [facility] 03-14-2025 20:34-0400 Body mass index (BMI) [Ratio] 31.19 kg/m2 Uri Voss DO Work Phone: [facility] 03-14-2025 20:34-0400 Body weight 110.2 kg Uri Voss DO Work Phone: [facility] 03-14-2025 09:55-0400 Diastolic blood pressure 90 mm[Hg] Ken Johnson CNP Work Phone: [facility] 03-14-2025 09:55-0400 Systolic blood pressure 147 mm[Hg] Ken Johnson CNP Work Phone: [facility] 03-14-2025 09:52-0400 Body height 185.4 cm Ken Johnson CNP Work Phone: [facility] 03-14-2025 09:52-0400 Body mass index (BMI) [Ratio] 32.98 kg/m2 Ken Johnson CNP Work Phone: [facility] 03-14-2025 09:52-0400 Body weight 113.4 kg Ken Johnson CNP Work Phone: [facility] 03-14-2025 09:52-0400 Heart rate 81 /min Ken Johnson CNP Work Phone: [facility] 03-14-2025 09:52-0400 SaO2% (BldA) [Mass fraction] 93 % Ken Johnson CNP Work Phone: [facility] 03-12-2025 18:50-0400 Diastolic blood pressure 83 mm[Hg] Flash Lovelace MD Work Phone: [facility] 03-12-2025 18:50-0400 Heart rate 83 /min Flash Lovelace MD Work Phone: [facility] 03-12-2025 18:50-0400 Respiratory rate 16 /min Flash Lovelace MD Work Phone: [facility] 03-12-2025 18:50-0400 SaO2% (BldA) [Mass fraction] 95 % Flash Lovelace MD Work Phone: [facility] 03-12-2025 18:50-0400 Systolic blood pressure 171 mm[Hg] Flash Lovelace MD Work Phone: [facility] 03-12-2025 17:05-0400 Inhaled oxygen flow rate 6 L/min Flash Lovelace MD Work Phone: [facility] 03-12-2025 13:05-0400 Body height 187.96 cm Flash Lovelace MD Work Phone: [facility] 03-12-2025 13:05-0400 Body temperature 98.1 [degF] Flash Lovelace MD Work Phone: [facility] 03-12-2025 13:05-0400 Body weight 113.39 kg Flash Lovelace MD Work Phone: [facility] 03-11-2025 11:34-0400 Body height 187.96 cm Flash Lovelace MD Work Phone: [facility] 03-11-2025 11:34-0400 Body mass index (BMI) [Ratio] 32.1 kg/m2 Flash Lovelace MD Work Phone: [facility] 03-11-2025 11:34-0400 Body temperature 98 [degF] Flash Lovelace MD Work Phone: [facility] 03-11-2025 11:34-0400 Body weight 113.39 kg Flash Lovelace MD Work Phone: [facility] 03-11-2025 11:34-0400 Diastolic blood pressure 72 mm[Hg] Flash Lovelace MD Work Phone: [facility] 03-11-2025 11:34-0400 Heart rate 77 /min Flash Lovelace MD Work Phone: [facility] 03-11-2025 11:34-0400 SaO2% (BldA) [Mass fraction] 98 % Flash Lovelace MD Work Phone: [facility] 03-11-2025 11:34-0400 Systolic blood pressure 160 mm[Hg] Flash Lovelace MD Work Phone: [facility] 01-09-2025 10:33-0400 Body height 188 cm Bhaskar Wilson FRONT END [employer] Work Phone: [facility] 01-09-2025 10:33-0400 Body mass index (BMI) [Ratio] 32.23 kg/m2 Bhaskar Wilson FRONT END [employer] DEVELOPER Work Phone: [facility] 01-09-2025 10:33-0400 Body weight 113.85 kg Bhaskar Wilson FRONT END J[employer] DEVELOPER Work Phone: [facility] 01-09-2025 10:33-0400 Diastolic blood pressure 74 mm[Hg] Bhaskar Wilson FRONT END [employer] DEVELOPER Work Phone: [facility] 01-09-2025 10:33-0400 Heart rate 83 /min Bhaskar Wilson FRONT END J[employer] DEVELOPER Work Phone: [facility] 01-09-2025 10:33-0400 Respiratory rate 17 /min Bhaskar Wilson FRONT END J[employer] DEVELOPER Work Phone: [facility] 01-09-2025 10:33-0400 SaO2% (BldA) [Mass fraction] 96 % Bhaskar Wilson FRONT END J[employer] DEVELOPER Work Phone: [facility] 01-09-2025 10:33-0400 Systolic blood pressure 128 mm[Hg] Bhaskar Wilson FRONT END J[employer] DEVELOPER Work Phone: [facility] 08-12-2024 13:21-0500 Body height 188 cm Flash Lovelace MD Work Phone: [facility] 08-12-2024 13:21-0500 Body mass index (BMI) [Ratio] 33 kg/m2 Flash Lovelace MD Work Phone: [facility] 08-12-2024 13:21-0500 Body weight 116.57 kg Flash Lovelace MD Work Phone: [facility] 08-12-2024 13:21-0500 Diastolic blood pressure 78 mm[Hg] Flash Lovelace MD Work Phone: [facility] 08-12-2024 13:21-0500 Heart rate 73 /min Flash Lovelace MD Work Phone: [facility] 08-12-2024 13:21-0500 SaO2% (BldA) [Mass fraction] 96 % Flash Lovelace MD Work Phone: [facility] 08-12-2024 13:21-0500 Systolic blood pressure 138 mm[Hg] Flash Lovelace MD Work Phone: [facility] 05-21-2024 13:07-0400 Body height 188 cm Zoë Hemmer PA Work Phone: [facility] 05-21-2024 13:07-0400 Body mass index (BMI) [Ratio] 31.38 kg/m2 Zoë Hemmer PA Work Phone: [facility] 05-21-2024 13:07-0400 Body weight 110.86 kg Zoë Hemmer PA Work Phone: [facility] 05-21-2024 13:07-0400 Diastolic blood pressure 84 mm[Hg] Zoë Hemmer PA Work Phone: [facility] 05-21-2024 13:07-0400 Heart rate 80 /min Zoë Hemmer PA Work Phone: [facility] 05-21-2024 13:07-0400 Respiratory rate 16 /min Zoë Hemmer PA Work Phone: [facility] 05-21-2024 13:07-0400 SaO2% (BldA) [Mass fraction] 98 % Zoë Hemmer PA Work Phone: [facility] 05-21-2024 13:07-0400 Systolic blood pressure 152 mm[Hg] Zoë Hemmer PA Work Phone: [facility] 04-26-2024 09:25-0400 Body height 188 cm Zoë Hemmer PA Work Phone: [facility] 04-26-2024 09:25-0400 Body mass index (BMI) [Ratio] 31.23 kg/m2 Zoë Hemmer PA Work Phone: [facility] 04-26-2024 09:25-0400 Body weight 110.31 kg Zoë Hemmer PA Work Phone: [facility] 04-26-2024 09:25-0400 Diastolic blood pressure 82 mm[Hg] Zoë Hemmer PA Work Phone: [facility] 04-26-2024 09:25-0400 Heart rate 70 /min Zoë Hemmer PA Work Phone: [facility] 04-26-2024 09:25-0400 Respiratory rate 16 /min Zoë Hemmer PA Work Phone: [facility] 04-26-2024 09:25-0400 SaO2% (BldA) [Mass fraction] 96 % Zoë Hemmer PA Work Phone: [facility] 04-26-2024 09:25-0400 Systolic blood pressure 132 mm[Hg] Zoë Hemmer PA Work Phone: [facility] 12-26-2023 13:07-0400 Blood Pressure Location BRENNA JAY [facility] 12-26-2023 13:07-0400 Diastolic blood pressure 74 mm[Hg] BRENNA JAY [facility] 12-26-2023 13:07-0400 Heart rate 68 /min BRENNA JAY [facility] 12-26-2023 13:07-0400 Respiratory rate 16 /min BRENNA JAY [facility] 12-26-2023 13:07-0400 Systolic blood pressure 130 mm[Hg] BRENNA MOSQUERA [facility] 10-12-2023 15:13-0500 Diastolic blood pressure 77 mm[Hg] MD Flash Lovelace Work Phone: [facility] 10-12-2023 15:13-0500 Heart rate 67 /min MD Flash Lovelace Work Phone: [facility] 10-12-2023 15:13-0500 Respiratory rate 16 /min MD Flash Lovelace Work Phone: [facility] 10-12-2023 15:13-0500 SaO2% (BldA) [Mass fraction] 96 % MD Flash Lovelace Work Phone: [facility] 10-12-2023 15:13-0500 Systolic blood pressure 177 mm[Hg] MD Flash Lovelace Work Phone: [facility] 10-12-2023 08:43-0500 Body height 187.96 cm MD Flash Lovelace Work Phone: [facility] 10-12-2023 08:43-0500 Body weight 107 kg MD Flash Lovelace Work Phone: [facility] 10-03-2023 10:00-0500 Body height 187.96 cm Cristian Beaver Other [employer] [facility] [employer] Other 10-03-2023 10:00-0500 Body mass index (BMI) [Ratio] 30.55 kg/m2 Cristian Beaver Other [employer] Other 10-03-2023 10:00-0500 Body temperature 96.4 [degF] Cristian Beaver Other [employer] Other 10-03-2023 10:00-0500 Body weight 107.96 kg Cristian Beaver Other [employer] Other 10-03-2023 10:00-0500 Diastolic blood pressure 78 mm[Hg] Cristian Beaver Other [employer] Other 10-03-2023 10:00-0500 SaO2% (BldA) [Mass fraction] 94 % Cristian Beaver Other [employer] Other 10-03-2023 10:00-0500 Systolic blood pressure 150 mm[Hg] Cristian Beaver Other [employer] Other 08-10-2023 10:52-0500 Body height 188 cm [employer] Work Phone: [id number] 08-10-2023 10:52-0500 Body mass index (BMI) [Ratio] 29.53 kg/m2 [employer] Work Phone: [id number] 08-10-2023 10:52-0500 Body weight 104.33 kg [employer] CONSULT[employer] Work Phone: [id number] 08-09-2023 12:29-0500 Diastolic blood pressure 80 mm[Hg] Mohsen Sarabia MD Work Phone: [facility] 08-09-2023 12:29-0500 Systolic blood pressure 135 mm[Hg] Mohsen Sarabia MD Work Phone: [facility] 08-09-2023 12:27-0500 Body height 185.4 cm Mohsen Sarabia MD Work Phone: [facility] 08-09-2023 12:27-0500 Body mass index (BMI) [Ratio] 30.34 kg/m2 Mohsen Sarabia MD Work Phone: [facility] 08-09-2023 12:27-0500 Body weight 104.33 kg Mohsen Sarabia MD Work Phone: [facility] 08-09-2023 12:27-0500 Heart rate 68 /min Mohsen Sarabia MD Work Phone: [facility] 08-09-2023 12:27-0500 Respiratory rate 12 /min Mohsen Sarabia MD Work Phone: [facility] 08-09-2023 12:27-0500 SaO2% (BldA) [Mass fraction] 93 % Mohsen Sarabia MD Work Phone: [facility] 06-12-2023 09:30-0400 Body height 187.96 cm Cristian Beaver Other [employer] Other 06-12-2023 09:30-0400 Body mass index (BMI) [Ratio] 30.55 kg/m2 Cristian Beaver Other [employer] Other 06-12-2023 09:30-0400 Body temperature 97.6 [degF] Cristian Beaver Other [employer] Other 06-12-2023 09:30-0400 Body weight 107.96 kg Cristian Beaver Other [employer] Other 06-12-2023 09:30-0400 Diastolic blood pressure 60 mm[Hg] Cristian Beaver Other [employer] Other 06-12-2023 09:30-0400 SaO2% (BldA) [Mass fraction] 97 % Cristian Melendezreradha Other [facility] Other 06-12-2023 09:30-0400 Systolic blood pressure 138 mm[Hg] Cristian Jonesehrer Other [facility] Other 05-23-2023 10:45-0400 Body height 187.96 cm Cristian Melendezrer Other [facility] Other 05-23-2023 10:45-0400 Body mass index (BMI) [Ratio] 30.55 kg/m2 Cristian Melendezrer Other [facility] Other 05-23-2023 10:45-0400 Body temperature 97.8 [degF] Cristian Melendezrer Other [facility] Other 05-23-2023 10:45-0400 Body weight 107.96 kg Cristian Melendezrer Other [facility] Other 05-23-2023 10:45-0400 Diastolic blood pressure 78 mm[Hg] Cristian Melendezrer Other [facility] Other 05-23-2023 10:45-0400 SaO2% (BldA) [Mass fraction] 98 % Cristian Jonesehrer Other [facility] Other 05-23-2023 10:45-0400 Systolic blood pressure 126 mm[Hg] Cristian Buehrer Other [facility] Other 11-14-2022 10:45-0400 Body height 187.96 cm Haven Malcolm Other [facility] Other 11-14-2022 10:45-0400 Body mass index (BMI) [Ratio] 31.45 kg/m2 Haven Malcolm Other [facility] Other 11-14-2022 10:45-0400 Body temperature 97.3 [degF] Haven Malcolm Other [facility] Other 11-14-2022 10:45-0400 Body weight 111.13 kg Haven Malcolm Other [facility] Other 11-14-2022 10:45-0400 Diastolic blood pressure 58 mm[Hg] Haven Malcolm Other [facility] Other 11-14-2022 10:45-0400 SaO2% (BldA) [Mass fraction] 94 % Haven Malcolm Other [facility] Other 11-14-2022 10:45-0400 Systolic blood pressure 130 mm[Hg] Haven Malcolm Other [facility] Other 11-08-2022 08:09-0400 Body temperature 97.5 [degF] Ronnie Montoya MD Work Phone: [facility] 11-08-2022 08:09-0400 Diastolic blood pressure 70 mm[Hg] Ronnie Montoya MD Work Phone: [facility] 11-08-2022 08:09-0400 Heart rate 81 /min Ronnie Montoya MD Work Phone: [facility] 11-08-2022 08:09-0400 Respiratory rate 16 /min Ronnie Montoya MD Work Phone: [facility] 11-08-2022 08:09-0400 SaO2% (BldA) [Mass fraction] 95 % Ronnie Montoya MD Work Phone: [facility] 11-08-2022 08:09-0400 Systolic blood pressure 122 mm[Hg] Ronnie Montoya MD Work Phone: [facility] 03-09-2023 13:29-0500 Body height 185.4 cm Ronnie Montoya MD Work Phone: [facility] 11-03-2022 13:29-0500 Body mass index (BMI) [Ratio] 32.98 kg/m2 Ronnie Montoya MD Work Phone: [facility] 11-03-2022 13:29-0500 Body weight 113.4 kg Ronnie Montoya MD Work Phone: [facility] 10-30-2022 21:30-0500 Diastolic blood pressure 70 mm[Hg] Dalila Arreguin MD Work Phone: [email or web address] 10-30-2022 21:30-0500 Heart rate 92 /min Dalila Arreguin MD Work Phone: [email or web address] 10-30-2022 21:30-0500 Respiratory rate 22 /min Dalila Arreguin MD Work Phone: [employer] 10-30-2022 21:30-0500 SaO2% (BldA) [Mass fraction] 90 % Dalila Arreguin MD Work Phone: [facility] 10-30-2022 21:30-0500 Systolic blood pressure 129 mm[Hg] Dalila Arreguin MD Work Phone: [facility] 10-30-2022 20:00-0500 Diastolic blood pressure 72 mm[Hg] Dalila Arreguin MD Work Phone: [employer] 10-30-2022 20:00-0500 Heart rate 90 /min Dalila Arreguin MD Work Phone: [facility] 10-30-2022 20:00-0500 Respiratory rate 7 /min Dalila Arreguin MD Work Phone: [employer] 10-30-2022 20:00-0500 SaO2% (BldA) [Mass fraction] 89 % Dalila Arreguin MD Work Phone: [employer] 10-30-2022 20:00-0500 Systolic blood pressure 157 mm[Hg] Dalila Arreguin MD Work Phone: [facility] 10-30-2022 19:34-0500 Body height 188 cm Dalila Arreguin MD Work Phone: [employer] 10-30-2022 19:34-0500 Body mass index (BMI) [Ratio] 32.1 kg/m2 Dalila Arreguin MD Work Phone: [employer] 10-30-2022 19:34-0500 Body weight 113.4 kg Dalila Arreguin MD Work Phone: [employer] 10-30-2022 19:06-0500 Body temperature 98.4 [degF] Dalila Arreguin MD Work Phone: [employer] 07-14-2022 10:48-0500 Body height 188 cm Scar Ortega [employer] Work Phone: [email or web address] 07-14-2022 10:48-0500 Body mass index (BMI) [Ratio] 32.35 kg/m2 Scar Melida [employer]ANT Work Phone: [email or web address] 07-14-2022 10:48-0500 Body temperature 97.3 [degF] Scar Burrowsey [employer] CON[employer]ANT Work Phone: [email or web address] 07-14-2022 10:48-0500 Body weight 114.31 kg Scar Ortega [employer] Work Phone: [email or web address] 05-03-2022 13:00-0400 Body height 187.96 cm Cristian Beaver Other [facility] Other 05-03-2022 13:00-0400 Body mass index (BMI) [Ratio] 32.09 kg/m2 Cristian Melendezreradha Other [facility] Other 05-03-2022 13:00-0400 Body temperature 97.2 [degF] Cristian Beaver Other [facility] Other 05-03-2022 13:00-0400 Body weight 113.4 kg Cristian Smithr Other [facility] Other 05-03-2022 13:00-0400 Diastolic blood pressure 60 mm[Hg] Cristian Melendezrer Other [facility] Other 05-03-2022 13:00-0400 SaO2% (BldA) [Mass fraction] 96 % Cristian Melendezreradha Other [facility] Other 05-03-2022 13:00-0400 Systolic blood pressure 142 mm[Hg] Cristian Melendezrer Other [facility] Other 04-25-2022 16:45-0400 Diastolic blood pressure 67 mm[Hg] MD Flash Lovelace Work Phone: [facility] 04-25-2022 16:45-0400 Heart rate 67 /min MD Flash Lovelace Work Phone: [facility] 04-25-2022 16:45-0400 Respiratory rate 16 /min MD Flash Lovelace Work Phone: [facility] 04-25-2022 16:45-0400 SaO2% (BldA) [Mass fraction] 97 % MD Flash Lovelace Work Phone: [facility] 04-25-2022 16:45-0400 Systolic blood pressure 158 mm[Hg] MD Flash Lovelace Work Phone: [facility] 04-25-2022 11:24-0400 Body height 187.96 cm MD Flash Lovelace Work Phone: [facility] 04-25-2022 11:24-0400 Body weight 113.39 kg MD Flash Lovelace Work Phone: [facility] 04-19-2022 10:45-0400 Body height 187.96 cm Cristian Beaver Other [facility] Other 04-19-2022 10:45-0400 Body mass index (BMI) [Ratio] 32.09 kg/m2 Cristian Beaver Other [facility] Other 04-19-2022 10:45-0400 Body temperature 97.5 [degF] Cristian Beaver Other [facility] Other 04-19-2022 10:45-0400 Body weight 113.4 kg Cristian Beaver Other [facility] Other 04-19-2022 10:45-0400 Diastolic blood pressure 64 mm[Hg] Cristian Beaver Other [facility] Other 04-19-2022 10:45-0400 SaO2% (BldA) [Mass fraction] 97 % Cristian Beaver Other [facility] Other 04-19-2022 10:45-0400 Systolic blood pressure 130 mm[Hg] Cristian Beaver Other [facility] Other 04-15-2022 17:00-0400 Respiratory rate 16 /min Carson Brock MD Work Phone: [facility] 04-15-2022 15:28-0400 Body temperature 97.9 [degF] Carson Brock MD Work Phone: [facility] 04-15-2022 15:28-0400 Diastolic blood pressure 57 mm[Hg] Carson Brock MD Work Phone: [facility] 04-15-2022 15:28-0400 Heart rate 65 /min Carson Brock MD Work Phone: [facility] 04-15-2022 15:28-0400 SaO2% (BldA) [Mass fraction] 94 % Carson Brock MD Work Phone: [facility] 04-15-2022 15:28-0400 Systolic blood pressure 153 mm[Hg] Carson Brock MD Work Phone: [facility] 04-14-2022 19:35-0400 Body height 188 cm Carson Brock MD Work Phone: [facility] 04-14-2022 19:35-0400 Body mass index (BMI) [Ratio] 31.71 kg/m2 Carson Brock MD Work Phone: [facility] 04-14-2022 19:35-0400 Body weight 112.04 kg Carson Brock MD Work Phone: [facility] 02-25-2022 09:43-0400 Body height 188 cm Wagner Moon MD Work Phone: [facility] 02-25-2022 09:43-0400 Body mass index (BMI) [Ratio] 32.21 kg/m2 Wagner Moon MD Work Phone: [facility] 02-25-2022 09:43-0400 Body temperature 99.1 [degF] Wagner Moon MD Work Phone: [facility] 02-25-2022 09:43-0400 Body weight 113.81 kg Wagnre Moon MD Work Phone: [facility] 02-25-2022 09:43-0400 Diastolic blood pressure 84 mm[Hg] Wagner Moon MD Work Phone: [facility] Comment on above: anxiety 02-25-2022 09:43-0400 Heart rate 66 /min Wagner Moon MD Work Phone: [facility] 02-25-2022 09:43-0400 Respiratory rate 16 /min Wagner Moon MD Work Phone: [facility] 02-25-2022 09:43-0400 SaO2% (BldA) [Mass fraction] 95 % Wagner Moon MD Work Phone: [facility] 02-25-2022 09:43-0400 Systolic blood pressure 181 mm[Hg] Wagner Moon MD Work Phone: [facility] Comment on above: anxiety 01-21-2022 14:15-0400 Respiratory rate 16 /min Mikey Mcguire MD Work Phone: [facility] 01-21-2022 07:53-0400 Body temperature 97.9 [degF] Mikey Mcguire MD Work Phone: [facility] 01-21-2022 07:53-0400 Diastolic blood pressure 73 mm[Hg] Mikey Mcguire MD Work Phone: [facility] 01-21-2022 07:53-0400 Heart rate 66 /min Mikey Mcguire MD Work Phone: [facility] 01-21-2022 07:53-0400 SaO2% (BldA) [Mass fraction] 91 % Mikey Mcguire MD Work Phone: [facility] 01-21-2022 07:53-0400 Systolic blood pressure 133 mm[Hg] Mikey Mcguire MD Work Phone: [facility] 01-18-2022 20:43-0400 Body height 188 cm Mikey Mcguire MD Work Phone: [facility] 01-18-2022 20:43-0400 Body mass index (BMI) [Ratio] 32.1 kg/m2 Mikey Mcguire MD Work Phone: [facility] 01-18-2022 20:43-0400 Body weight 113.4 kg Mikey Mcguire MD Work Phone: [facility] 01-12-2022 09:04-0400 Body height 188 cm Dashawn Silvestre MD Work Phone: [facility] 01-12-2022 09:04-0400 Body mass index (BMI) [Ratio] 32.38 kg/m2 Dashawn Silvestre MD Work Phone: [facility] 01-12-2022 09:04-0400 Body temperature 97.11 [degF] Dashawn Silvestre MD Work Phone: [facility] 01-12-2022 09:04-0400 Body weight 114.4 kg Dashawn Silvestre MD Work Phone: [facility] 11-24-2021 09:44-0400 Body height 188 cm Dashawn Silvestre MD Work Phone: [facility] 11-24-2021 09:44-0400 Body mass index (BMI) [Ratio] 31.07 kg/m2 Dashawn Silvestre MD Work Phone: [facility] 11-24-2021 09:44-0400 Body weight 109.77 kg Dashawn Silvestre MD Work Phone: [facility] 10-09-2019 14:17-0500 BMI (Body Mass Index) 31.46 kg/m2 [facility] 10-09-2019 14:17-0500 Body weight 111.13 kg [facility] 10-09-2019 14:17-0500 BP Diastolic 66 mm[Hg] [facility] 10-09-2019 14:17-0500 BP Systolic 135 mm[Hg] [facility] 10-09-2019 14:17-0500 Height 188 cm [facility] 10-09-2019 14:17-0500 Pulse (Heart Rate) 71 /min [facility] 10-09-2019 14:17-0500 Pulse Oximetry 95 % [facility] 03-13-2019 09:57-0400 BMI (Body Mass Index) 27.99 kg/m2 Mohsen Sarabia [facility] 03-13-2019 09:57-0400 Body weight 98.88 kg Mohsen Sarabia [facility] 03-13-2019 09:57-0400 BP Diastolic 73 mm[Hg] Mohsen Sarabia [facility] 03-13-2019 09:57-0400 BP Systolic 156 mm[Hg] Mohsen Sarabia [facility] 03-13-2019 09:57-0400 Height 188 cm Mohsen Sarabia [facility] 03-13-2019 09:57-0400 Pulse (Heart Rate) 72 /min Mohsen Sarabia [facility] 03-13-2019 09:57-0400 Pulse Oximetry 98 % Mohsen Sarabia [facility] 03-13-2019 09:57-0400 Respiratory Rate 16 /min Mohsen Sarabia [facility] 10-25-2018 15:07-0500 Body Temperature 99.39 [degF] [facility] 10-25-2018 15:07-0500 BP Diastolic 74 mm[Hg] [facility] 10-25-2018 15:07-0500 BP Systolic 176 mm[Hg] [facility] 10-25-2018 15:07-0500 Pulse (Heart Rate) 96 /min [facility] 10-25-2018 15:07-0500 Respiratory Rate 16 /min [facility] 10-18-2018 15:29-0500 Body Temperature 98.4 [degF] [facility] 10-18-2018 15:29-0500 BP Diastolic 79 mm[Hg] [facility] 10-18-2018 15:29-0500 BP Systolic 137 mm[Hg] [facility] 10-18-2018 15:29-0500 Pulse (Heart Rate) 86 /min [facility] 10-18-2018 15:29-0500 Respiratory Rate 16 /min [facility] 10-12-2018 18:41-0500 BP Diastolic 64 mm[Hg] [facility] 10-12-2018 18:41-0500 BP Systolic 138 mm[Hg] [facility] 10-12-2018 12:17-0500 Body Temperature 98.2 [degF] [facility] 10-12-2018 12:17-0500 Pulse (Heart Rate) 72 /min [facility] 10-12-2018 12:17-0500 Pulse Oximetry 96 % [facility] 10-12-2018 12:17-0500 Respiratory Rate 14 /min [facility] 10-08-2018 06:20-0500 BMI (Body Mass Index) 27.99 kg/m2 [facility] 10-08-2018 06:20-0500 Height 188 cm [facility] 10-08-2018 06:20-0500 Weight 98.88 kg [facility] 10-04-2018 13:08-0500 Body Temperature 98.2 [degF] [facility] 10-04-2018 13:08-0500 BP Diastolic 80 mm[Hg] [facility] 10-04-2018 13:08-0500 BP Systolic 154 mm[Hg] [facility] 10-04-2018 13:08-0500 Pulse (Heart Rate) 87 /min [facility] 10-04-2018 13:08-0500 Respiratory Rate 16 /min [facility] 09-20-2018 14:15-0500 BMI (Body Mass Index) 30.3 kg/m2 [facility] 09-20-2018 14:15-0500 Body Temperature 97.9 [degF] [facility] 09-20-2018 14:15-0500 BP Diastolic 75 mm[Hg] [facility] 09-20-2018 14:15-0500 BP Systolic 136 mm[Hg] [facility] 09-20-2018 14:15-0500 Height 188 cm [facility] 09-20-2018 14:15-0500 Pulse (Heart Rate) 92 /min [facility] 09-20-2018 14:15-0500 Respiratory Rate 16 /min [facility] 09-20-2018 14:15-0500 Weight 107.05 kg [facility] 09-13-2018 10:30-0500 Respiratory Rate 20 /min [facility] 09-13-2018 07:36-0500 Body Temperature 99.3 [degF] [facility] 09-13-2018 07:36-0500 BP Diastolic 66 mm[Hg] [facility] 09-13-2018 07:36-0500 BP Systolic 147 mm[Hg] [facility] 09-13-2018 07:36-0500 Pulse (Heart Rate) 103 /min [facility] 09-13-2018 07:36-0500 Pulse Oximetry 92 % [facility] 09-04-2018 19:09-0500 BMI (Body Mass Index) 31.58 kg/m2 [facility] 09-04-2018 19:09-0500 Height 188 cm [facility] 09-04-2018 19:09-0500 Weight 111.[address] [facility] [facility] Date Encounter Type Care Provider Facility Start: 04-30-2025 End: 04-30-2025 Clinisync Result Encounter Generic External Data Provider [facility] External Department Unsolicited Start: 04-30-2025 End: 04-30-2025 Clinisync Result Encounter Generic External Data Provider [facility] External Department Unsolicited Start: 04-29-2025 End: 04-29-2025 Telephone encounter Sheree Murrell [facility] Comment on above: Medication Question (Has a terrible cold and runny nose wanted to know if you could zuly in a z-pack for him.) Benign essential hyp ertension Start: 04-23-2025 End: 04-23-2025 Office outpatient visit 25 minutes Mohsen Sarabia MD Work Phone: [facility] Comment on above: Critical lower limb ischemia (HCC) (Primary Dx) Start: 04-23-2025 End: 04-23-2025 ambulatory [facility] Start: 04-23-2025 End: 04-23-2025 ambulatory [facility] Start: 04-21-2025 End: 04-21-2025 Telephone encounter Elaine Kaiser MASON Work Phone: [facility] Start: 04-16-2025 [...] 25 minutes Flash Lovelace MD Work Phone: [facility] Comment on above: PVD (peripheral vasc ular disease) with claudication (Primary Dx); Ischemic toe ulcer, right, with 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); Osteomyelitis of right foot, unspecified type (HCC) Start: 04-14-2025 End: 04-14-2025 ambulatory FLASH LOVELACE Not Available Start: 04-09-2025 End: 04-09-2025 Telephone encounter Zoë King PA Work Phone: [facility] Start: 04-08-2025 End: 04-08-2025 Bamboo flowsheet Zoë King PA Work Phone: [facility] Start: 04-08-2025 End: 04-09-2025 Bamboo flowsheet Zoë King PA Work Phone: [facility] Start: 04-08-2025 End: 04-09-2025 External Result Encounter Zoë King PA Work Phone: [facility] External Department Unsolicited Start: 04-08-2025 End: 04-08-2025 Office outpatient visit 25 minutes Zoë BROWER Work Phone: [facility] Comment on above: PVD (peripheral vasc ular disease) with claudication (Primary Dx); Acquired absence of left foot (HCC); Ischemic toe ulcer, right, with 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) Start: 04-08-2025 End: 04-08-2025 ambulatory ZOË KING Not Available Start: 04-02-2025 End: 04-02-2025 Office outpatient visit 15 minutes Mohsen Saarbia MD Work Phone: [facility] Comment on above: Critical lower limb ischemia (HCC) (Primary Dx) Start: 04-02-2025 End: 04-02-2025 ambulatory MOHSEN SARABIA [facility] Ambulatory Start: 03-31-2025 End: 03-31-2025 Office outpatient visit 25 minutes Flash Lovelace MD Work Phone: [facility] Comment on above: PVD (peripheral vasc ular disease) with claudication; History of prostate cancer; Urinary hesitancy Start: 03-31-2025 End: 03-31-2025 ambulatory FLASH LOVELACE Not Available Start: 03-26-2025 Evaluation and manag ement of inpatient Cristian Beaver Facility:[facility] Start: 03-18-2025 End: 03-18-2025 Documentation procedure Brenna Galloway RN [facility] Start: 03-14-2025 End: 03-14-2025 Documentation procedure Ludivina Garcia RN [facility] Start: 03-14-2025 End: 03-21-2025 Evaluation and management of inpatient Elaine Macdonald MD Work Phone: [facility] Start: 03-14-2025 End: 03-14-2025 Postop follow up visit related to original px Mohsen Sarabia MD Work Phone: [facility] Comment on above: Acute pain of right lower extremity (Primary Dx) Start: 03-14-2025 End: 03-14-2025 ambulatory MOHSEN SARABIA [facility] Start: 03-14-2025 End: 03-14-2025 ambulatory FLASH LOVELACE [facility] Start: 03-13-2025 End: 03-13-2025 Documentation procedure Ludivina Garcia RN [facility] Start: 03-12-2025 End: 03-12-2025 Admission to same day surgery center Cristian Beaver MD -[facility] [place] Start: 03-12-2025 End: 03-12-2025 ambulatory Flash Lovelace MD Work Phone: [facility] Work Phone: Start: 03-11-2025 End: 03-11-2025 ambulatory Flash Lovelace MD Work Phone: [facility] Work Phone: Start: 03-11-2025 End: 03-11-2025 Patient encounter procedure Cristian Beaver MD -[facility] Work Phone: Start: 02-13-2025 End: 02-13-2025 Refill Flash Lovelace MD Work Phone: [facility] Comment on above: Primary insomnia; Other chronic pain; Lumbosacral spondylosis without myelopathy Start: 01-09-2025 End: 01-09-2025 Bamboo flowsheet Bhaskar Wilson FRONT END [employer]EL[employer] Work Phone: [facility] Start: 01-09-2025 End: 01-09-2025 Bamboo flowsheet Bhaskar Wilson FRONT END JAVA DEVELOPER Work Phone: [facility] Start: 01-09-2025 End: 01-09-2025 Office outpatient visit 25 minutes Bhaskar Wilson FRONT END [employer]EL[employer] Work Phone: [facility] Comment on above: Dysuria (Primary Dx) ; History of prostate cancer; Urinary hesitancy; Right-sided low back pain without sciatica, unspecified chronicity Start: 01-09-2025 End: 01-09-2025 ambulatory BHASKAR WILSON Not Available Start: 01-02-2025 End: 01-02-2025 Refill Flash Lovelace MD Work Phone: [facility] Comment on above: Other chronic pain; Lumbosacral spondylosis without myelopathy Start: 12-18-2024 ambulatory ELIEZER miller [facility] Start: 11-26-2024 End: 11-26-2024 Refill Flash Lovelace MD Work Phone: [facility] Comment on above: Other chronic pain ( Primary Dx); Sinusitis, unspecified chronicity, unspecified location; Lumbosacral spondylosis without myelopathy Start: 11-25-2024 End: 11-26-2024 ambulatory Elaine Saab LPN [facility] Start: 11-04-2024 End: 11-04-2024 ambulatory FLASH LOVELACE Not Available Start: 10-18-2024 End: 10-21-2024 Refyossi Valdez MA [facility] Comment on above: Lumbosacral spondylo sis without myelopathy Start: 10-01-2024 ambulatory MOHSEN SARABIA [facility] Start: 09-23-2024 End: 09-23-2024 Documentation procedure Ludivina Garcia RN [facility] Start: 09-12-2024 End: 09-13-2024 Refill Flash Lovelace MD Work Phone: [facility] Comment on above: Lumbosacral spondylo sis without myelopathy Start: 08-20-2024 End: 08-20-2024 Documentation procedure Luidvina Garcia RN [facility] Start: [...] End: 08-01-2024 Orders Only Ludivina Garcia RN [facility] Comment on above: PVD (peripheral vasc ular disease) (HCC) (Primary Dx) Start: 07-29-2024 End: 07-29-2024 ambulatory [facility] Facility:[facility] Start: 07-22-2024 End: 07-22-2024 ambulatory [facility] Start: 07-11-2024 End: 07-11-2024 Clinisync Result Encounter Generic External Data Provider [facility] External Department Unsolicited Start: 07-11-2024 End: 07-11-2024 Clinisync Result Encounter Generic External Data Provider [facility] External Department Unsolicited Start: 07-10-2024 End: 07-10-2024 ambulatory [facility] Start: 07-05-2024 End: 07-05-2024 Refill Flash [...] [facility] Start: 05-28-2024 End: 05-28-2024 ambulatory [facility] Start: 05-21-2024 End: 05-21-2024 Bamboo flowsheet Zoë King PA Work Phone: [facility] Start: 05-21-2024 End: 05-21-2024 Bamboo flowsheet Zoë King PA Work Phone: [facility] Start: 05-21-2024 End: 05-21-2024 Office outpatient visit 25 minutes Zoë King PA Work Phone: [facility] Comment on above: Chest pain in adult (Primary Dx); Lumbosacral spondylosis without myelopathy; 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[facility]); Seasonal allergic rhinitis due to pollen Start: [...] Unsolicited Start: 05-12-2024 End: 05-14-2024 ambulatory FLASH Kovacs [facility] Start: 04-26-2024 End: 04-26-2024 Bamboo flowsheet Zoë BROWER Work Phone: [facility] Start: 04-26-2024 End: 04-26-2024 Bamboo flowsheet Zoë BROWER Work Phone: [facility] Start: 04-26-2024 End: 04-26-2024 Patient encounter procedure Zoë BROWER Work Phone: [facility] Comment on above: Medicare annual [facility] visit, subsequent (Primary Dx); ACP (advance care [...] of cardiac valve disease unspecified; Atherosclerosis of [place] coronary artery of [place] heart without angina pectoris (CMS/HCC); Benign essential [...] amputation of left foot (CMS/HCC); Atherosclerosis of [place] arteries of extremities with rest pain, unspecified extremity (CMS/HCC); Pulmonary hypertension, unspecified (CMS/HCC) Start: 04-26-2024 End: 04-26-2024 ambulatory ZOË KING Not Available Start: 04-24-2024 End: 04-24-2024 ambulatory [facility] Start: 12-26-2023 End: 12-27-2023 ambulatory BRENNA MOSQUERA Facility:[facility] Start: 12-26-2023 End: 12-26-2023 Patient encounter procedure BRENNA MOSQUERA [facility] Start: 10-17-2023 End: 10-17-2023 ambulatory MD Flash Lovelace Work Phone: [facility] Work Phone: Start: 10-17-2023 End: 10-17-2023 Patient encounter procedure MD Flash Lovelace Work Phone: [facility]-Electrodiagnostic s Work Phone: Start: 10-12-2023 Non-patient / Non-visit MD Davon Lovelace Work Phone: [facility] V[facility] Surgery Work Phone: Start: 10-12-2023 End: 10-12-2023 Admission to same day surgery center MD Flash Lovelace Work Phone: [facility]-Interventional Radiology Work Phone: Start: 10-12-2023 End: 10-12-2023 ambulatory MD Flash Lovelace Work Phone: [facility] Work Phone: Start: 10-03-2023 End: 10-03-2023 ambulatory Cristian Beaver Other [facility] [address] Other Start: 10-03-2023 Office outpatient vi sit 25 minutes Cristian Beaver [facility] Vascular Surgery Start: 08-10-2023 ambulatory SCAR ORTEGA [facility] Start: 08-10-2023 End: 08-10-2023 Office outpatient visit 15 minutes Scar Ortega APRN-TRANSPORTATION CONSULTANT Work Phone: [facility] Orthopedics Comment on above: Hx of total hip arth roplasty, right (Primary Dx) Start: 08-10-2023 End: 08-10-2023 Subsequent hospital visit by physician Scar Ortega APRN-TRANSPORTATION CONSULTANT Work Phone: [facility] Radiology Start: 08-09-2023 End: 08-09-2023 Office outpatient visit 10 minutes Mohsen Sarabia MD Work Phone: [facility] Heart, Lung & Vascular Surgeons Comment on above: Critical lower limb ischemia (HCC) (Primary Dx) Start: 06-20-2023 Documentation procedure Katie harman RN [facility] Surgeons Start: 06-12-2023 Office outpatient vi sit 25 minutes Cristian Beaver [facility] Vascular Surgery Start: 06-12-2023 End: 06-12-2023 ambulatory MD Flash Lovelace Work Phone: [facility] [address] Other Start: 06-12-2023 End: 06-12-2023 Patient encounter procedure MD Flash Lovelace Work Phone: [facility]-Ultrasound [facility] Vascular Start: 06-06-2023 End: 04-26-2024 Assay of hemosiderin, tosha BROWER Work Phone: [facility] Start: 05-23-2023 Office outpatient vi sit 25 minutes Haven Malcolm [facility] V[facility] Start: 05-23-2023 End: 05-23-2023 ambulatory MD Flash Lovelace Work Phone: [facility] Other Start: 05-23-2023 End: 05-23-2023 Patient encounter procedure MD Flash Lovelace Work Phone: [facility]-Ultrasound [facility] Vascular Start: 05-15-2023 Orders Only Mohsen paris MD Work Phone: [facility] Heart, Lung & Vascular Surgeons Comment on above: PAD (peripheral devyn ry disease) (HCC) (Primary Dx) Start: 12-20-2022 End: 12-20-2022 Patient encounter procedure BRENNA MOSQUERA [facility] Start: 12-07-2022 End: 12-08-[address] FLASH LOVELACE Facility:[facility] Start: 11-14-2022 End: 11-14-2022 ambulatory Haven Malcolm Other [facility] Other Start: 11-14-2022 Follow-up encounter Haven Tejeda [facility] Start: 11-10-2022 End: 11-11-[address] FLASH LOVELACE Facility:[facility] Start: 11-08-2022 End: 11-08-2022 Patient encounter procedure BRENNA MOSQUERA [facility] Start: 11-03-2022 End: 11-08-2022 Evaluation and management of inpatient Ronnie Montoya MD Work Phone: [facility] Surgical Unit 3 Start: 10-30-2022 End: 10-30-2022 Emergency department patient visit FLASH ALCALA Work Phone: Comment on above: 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, unspecified part of lung (Primary Dx); COPD exacerbation (HCC) Start: 10-11-2022 End: 10-12-[address] FLASH LOVELACE Facility:[facility] Start: 09-20-2022 Documentation procedure Violetta Huerta [facility] Surgeons Start: 08-30-2022 Refill Carolee Avila LPN [facility] Pulmonary Physicians Comment on above: Chronic obstructive pulmonary disease, unspecified COPD type (HCC) Start: 07-14-2022 End: 07-14-2022 Office outpatient visit 15 minutes Scar Ortega APRN-TRANSPORTATION CONSULTANT Work Phone: [facility] Orthopedics Comment on above: Hx of total hip arth roplasty, right (Primary Dx) Start: 07-14-2022 End: 07-14-2022 Subsequent hospital visit by physician Scar Ortega APRN-TRANSPORTATION CONSULTANT Work Phone: [facility] Radiology Start: 05-25-2022 Orders Only Katie Anna RN [facility] Heart, Lung & Vascular Surgeons Comment on above: Bilateral carotid ar petra stenosis (Primary Dx) Start: 05-11-2022 End: 05-12-2022 ambulatory [facility] Start: 05-03-2022 End: 05-03-2022 ambulatory Cristian Beaver Other [facility] Other Start: 05-03-2022 Office outpatient vi sit 25 minutes Cristian Beaver [facility] Vascular Surgery Start: 04-25-2022 End: 04-25-2022 Admission to same day surgery center MD Flash Lovelace Work Phone: [facility]-Interventional Radiology Start: 04-19-2022 End: 04-19-2022 ambulatory Cristian Beaver Other [facility] Other Start: 04-19-2022 Office outpatient ne w 45 minutes Cristian Beaver [facility] Vascular Surgery Start: 04-16-2022 Documentation procedure Aaron Fenton DPM Work Phone: [facility] Start: 04-14-2022 End: 04-15-2022 Emergency department patient visit Carson Brock MD Work Phone: [facility] Medical Observation Start: 04-14-2022 Documentation procedure Katie harman RN [facility] Surgeons Start: 02-25-2022 End: 02-25-2022 Office outpatient new 45 minutes Muna Otto MD Work Phone: [facility] Pulmonary Physicians Comment on above: Chronic obstructive pulmonary disease, unspecified COPD type (HCC) (Primary Dx); Pulmonary nodule Start: 01-28-2022 End: 01-29-2022 ambulatory ELIZABETH LAI Facility: Start: 01-18-2022 End: 01-21-2022 Evaluation and management of inpatient Mikey Mcguire MD Work Phone: [facility] Surgical Unit 3 Start: 01-18-2022 Documentation procedure Katie harman RN [facility] Heart[facility] Surgeons Start: 01-12-2022 End: 01-12-2022 Office outpatient visit 15 minutes Dashawn Silvestre MD Work Phone: [facility] Orthopedics Comment on above: Hx of total hip arth roplasty, right (Primary Dx) Start: 01-12-2022 End: 01-12-2022 Subsequent hospital visit by physician Dashawn Silvestre MD Work Phone: [facility] Radiology Start: 12-28-2021 End: 01-01-2022 ambulatory ILEANA KANG [facility] Physicians Start: 12-28-2021 End: 12-28-2021 Office outpatient new 30 minutes Ileana Kang DO Work Phone: [facility] Dermatology Comment on above: Actinic keratosis (P rimary Dx); SK (seborrheic keratosis); Inflamed seborrheic keratosis; Skin tenderness; Xerosis cutis Start: 11-24-2021 End: 11-24-2021 Office outpatient visit 15 minutes Dashawn Silvestre MD Work Phone: [facility] Orthopedics Comment on above: Pain in prosthetic j oint, subsequent encounter (Primary Dx) Start: 11-24-2021 End: 11-24-2021 Subsequent hospital visit by physician Dashawn Silvestre MD Work Phone: [facility] Radiology Start: 04-06-2021 End: 04-06-2021 Orders Only Katie Anna RN [facility] Surgeons Comment on above: Bilateral carotid ar petra stenosis (Primary Dx); PAD (peripheral artery disease) (HCC) PAD (peripheral devyn ry disease) (HCC) (Primary Dx) Start: 09-11-2020 End: 09-11-2020 Orders Only Rhonda Riveraradha Oviedo Work Phone: [facility] Physician [facility] Start: 03-16-2020 End: 03-16-2020 Subsequent hospital visit by physician Mohsen Sarabia Work Phone: [facility] Peripheral Vascular Lab Comment on above: Bilateral carotid ar petra stenosis 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) Start: 10-21-2019 End: 10-21-2019 Subsequent hospital visit by physician Mohsen Sarabia Work Phone: [facility] CT Comment on above: S/P bypass graft of extremity; PAD (peripheral artery disease) (HCC); Atherosclerosis of [place] arteries of the extremities with ulceration (HCC) Start: 10-09-2019 End: 10-09-2019 Office outpatient visit 25 minutes Rosegisele Rosales Work Phone: [facility] Heart, Lung & Vascular Surgeons Comment on above: Pain of left lower e xtremity (Primary Dx) Start: 10-09-2019 End: 10-09-2019 Subsequent hospital visit by physician Mohsen Sarabia Work Phone: [facility] Cardiac Non-Invasive Lab Comment on above: 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); S/P bypass graft of extremity Start: 03-18-2019 End: 03-18-2019 Subsequent hospital visit by physician Mohsen Sarabia Work Phone: [facility] Peripheral Vascular Lab Comment on above: Bilateral carotid ar petra stenosis Start: 03-13-2019 End: 03-13-2019 Office outpatient visit 10 minutes Mohsen Sarabia Work Phone: [facility] Heart, Lung [facility] Vascular Surgeons Comment on above: Critical lower limb ischemia (Primary Dx) Start: 03-13-2019 End: 03-13-2019 Subsequent hospital visit by physician Mohsen Sarabia Work Phone: [facility] Non-Invasive Lab Comment on above: 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) Start: 12-17-2018 End: 12-17-2018 Office outpatient new 30 minutes Eugene Barnett Work Phone: [facility] ENT Comment on above: Referred otalgia of right ear (Primary Dx); Bilateral temporomandibular joint pain Start: 11-23-2018 Patient encounter procedure ANALIA FOX Facility:[facility] Start: 10-31-2018 End: 10-31-2018 Emergency department patient visit [facility] Start: 10-31-2018 End: 10-31-2018 Office outpatient visit 10 minutes Mohsen Sarabia Work Phone: [facility] Heart[facility] Lung [facility] Vascular Surgeons Comment on above: Gangrene of left eliseo t (HCC) (Primary Dx); Critical lower limb ischemia Start: 10-31-2018 End: 10-31-2018 Subsequent hospital visit by physician Mohsen Sarabia Work Phone: [facility] Comment on above: Atherosclerosis of n ative artery of left lower extremity with rest pain (HCC) ; S/P bypass graft of extremity; Atherosclerosis of [place] artery of left lower extremity with rest pain (HCC) Start: 10-31-2018 End: 10-31-2018 Patient encounter procedure Mohsen Sarabia Work Phone: [facility] Comment on above: 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) ; S/P bypass graft of extremity; 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) Start: 10-26-2018 Coordination of care plan Mine Maier [facility] & Care Coordination Start: 10-26-2018 End: 10-26-2018 Patient encounter procedure Mine Lew [facility] Start: 10-25-2018 End: 10-25-2018 Postop follow up visit related to original px Flynn Mann Work Phone: [facility] Wound Care Comment on above: 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); Gangrene (HCC); PVD (peripheral vascular disease) (HCC); 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, left; Lower extremity edema Start: 10-19-2018 Coordination of care plan [facility] & Care Coordination Start: 10-19-2018 End: 10-19-2018 Patient encounter procedure Mine Lew [facility] Start: 10-18-2018 End: 10-18-2018 Postop follow up visit related to original px Flynn Mann Work Phone: [facility] Wound Care Comment on above: Gangrene (HCC) (Prim katherine Dx); 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 (HCC); PVD (peripheral vascular disease) (HCC); Lower extremity edema; 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 Start: 10-04-2018 End: 10-12-2018 Evaluation and management of inpatient Flynn Mann Work Phone: [facility] 4 Bone & Joint Comment on above: Acute post-operative pain (Primary Dx) Start: 10-04-2018 End: 10-04-2018 Office outpatient visit 15 minutes Flynn Mann Work Phone: [facility] Wound Care Comment on above: Gangrene (HCC) (Prim katherine Dx); PVD (peripheral vascular disease) (HCC); Left foot pain; Critical lower limb ischemia; Ulcer of toe of left foot, with necrosis of bone (HCC) Start: 09-27-2018 Coordination of care plan Mine Lew [facility] UM & Care Coordination Start: 09-27-2018 End: 09-27-2018 Patient encounter procedure Mine Lew [facility] Start: 09-21-2018 End: 09-21-2018 Coordination of care plan Radha Matos Elena [facility] Wound Care Start: 09-21-2018 End: 09-21-2018 Patient encounter procedure Mine Lew [facility] Start: 09-20-2018 End: 09-20-2018 Patient encounter procedure Flynn Mann Work Phone: [facility] Fluoroscopy Comment on above: Critical lower limb ischemia Start: 09-20-2018 End: 09-20-2018 Office outpatient visit 15 minutes Flynn Mann Work Phone: [facility] Wound Care Comment on above: Critical lower limb ischemia (Primary Dx); Gangrene (HCC); PVD (peripheral vascular disease) (HCC); Left foot pain Start: 09-04-2018 End: 09-13-2018 Evaluation and management of inpatient Tiana Em Work Phone: [facility] Vascular Thoracic Surgery Comment on above: Ischemic foot (Prima ry Dx); PAD (peripheral artery disease) (HCC); Critical lower limb ischemia Start: 08-29-2018 Patient encounter procedure [facility] Start: 08-27-2018 Patient encounter procedure [facility] Start: 08-22-2018 Patient encounter procedure [facility] Start: 10-31-2016 End: 11-06-2016 Ambulatory [facility] Facility:[facility] Start: 03-06-2014 End: 03-06-2014 Patient encounter procedure [facility] Procedures Date Procedure Procedure Detail Performing Clinician Start: 04-30-2025 ALL BASIC METABOLIC PANEL Generic Feather Sawyer al Data Provider Start: 04-30-2025 ALL C REACTIVE PROTEIN Generic External Data Provider Start: 04-16-2025 XR FOOT RT MIN 3V [...] MD Work Phone: Start: 03-17-2025 Glucose measurement [facility] Physicians Work Phone: Start: 03-17-2025 Basic [...] stick/tablet rgnt non-auto w/o micrscp Bhaskar Wilson FRONT END JAVA DEVELOPER Work Phone: Start: 11-04-2024 History of amputation of foot Acquired absence of left foot Elaine Saab BREAKFAST SERVER Start: 07-11-2024 ALL BASIC METABOLIC PANEL Generic Feather Sawyer al Data Provider Start: 07-11-2024 ALL CBC WITH AUTO DIFF Generic External Data Provider Start: 07-11-2024 ALL SED RATE Generic External Data Provider Start: 07-11-2024 MHPT DIFFERENTIAL Generic External Data Provider Start: 07-03-2024 ALL BASIC METABOLIC PANEL Generic Feather Sawyer al Data Provider Start: 05-28-2024 History of [...] Radiologic exam chest single view Jose Escalona TRANSPORTATION CONSULTANT Work Phone: Start: 11-08-2022 Renal function panel [...] Radex humerus minimum 2 views Gustavo joseph TRANSPORTATION CONSULTANT Work Phone: Start: 11-04-2022 Renal function panel [...] Start: 11-03-2022 Ct angiography chest w/contrast/noncontrast Sharron Carline Khan PA-C Work Phone: Start: 11-03-2022 Assay of troponin quantitative Ronnie Montoya MD Work Phone: Start: 11-03-2022 Radiologic exam chest single view Aurelia Tillman [facility] Work Phone: Start: 11-03-2022 Radex foot complete minimum 3 views Aurelia Tillman [facility] Work Phone: Start: 11-03-2022 Dup-scan xtr veins complete bilateral study Aurelia Tillman [facility] Work Phone: Start: 11-03-2022 Basic metabolic panel calcium total Aurelia Tillman TRANSPORTATION CONSULTANT Work Phone: Start: 11-03-2022 C-reactive protein Aurelia Tillman [facility] Work Phone: Start: 11-03-2022 FRIEDMAN TOP Triage Protocol Emergency MD Start: 11-03-2022 LIGHT BLUE TOP Triage Protocol Emergency MD Start: 11-03-2022 LIGHT GREEN TOP Triage Protocol Emergency MD Start: 11-03-2022 PINK TOP Triage Protocol Emergency MD Start: 11-03-2022 Ecg routine ecg w/least 12 lds trcg only w/o i&r Aurelia Tillman [facility] Work Phone: Start: 11-03-2022 End: 11-03-2022 RAINBOW DRAW Triage Protocol Emergency MD Start: 11-03-2022 URINE CONTAINER Triage Protocol Emergency MD Start: 11-03-2022 End: 11-03-2022 Urnls dip stick/tablet reagent auto microscopy Aurelia Tillman [facility] Work Phone: Start: 10-30-2022 Iadna respiratry probe & rev trnscr 12-25 target Dalila Arreguin MD Work Phone: Start: 10-30-2022 Radiologic exam chest single view Dalila Arreguin MD Work Phone: Start: 10-30-2022 DIFFERENTIAL Dalila Arreguin MD Work Phone: Start: 10-30-2022 End: 10-30-2022 Natriuretic peptide Dalila Arreguin MD Work Phone: Start: 10-11-[address] FLASH LOVELACE Comment on above: Performed By: #### PSAD #### [facility] [address] [place] [address] Dr. Benedict Edmondson Start: 04-25-2022 Ultrasound (US) doppler flow mapping of vein of upper limb MD Flash Lovelace Work Phone: Start: 04-25-2022 Ultrasound peripheral vascular flow study MD Flahs Lovelace Work Phone: Start: 04-25-2022 Abdominal aortogram [...] 04-14-2022 Basic metabolic panel calcium total Mehnaz Lamb PA-C Work Phone: Start: 04-14-2022 FRIEDMAN TOP Triage Protocol Emergency Start: 04-14-2022 LAVENDER TOP Triage Protocol Emergency Start: 04-14-2022 LIGHT GREEN TOP Triage Protocol Emergency Start: 04-14-2022 MINT GREEN TOP Triage Protocol Emergency Start: 04-14-2022 PINK TOP Triage Protocol Emergency Start: 04-14-2022 RAINBOW DRAW Triage Protocol Emergency Start: 01-21-2022 Blood count complete auto&auto difrntl wbc Parvez Mak MD Work Phone: Start: 01-20-2022 Basic metabolic panel calcium total Parvez aMk MD Work Phone: Start: 01-19-2022 Ct thorax [...] Ecg routine ecg w/least 12 lds w/i&r Poly Area Supervisor Generic Start: 03-16-2020 Carotid artery doppler assessment [...] Plasma Fatou Britton Start: 10-10-2018 Esophagogastroduodenoscopy Ben hutchison Mikey Work Phone: Start: 10-10-2018 Procedure on tissue specimen Daniella Mikey Work Phone: Start: 10-10-2018 Endoscopy of esophagus Ben Chen Mikey Work Phone: Start: 10-10-2018 Creatinine [Mass/volume] in Serum or Plasma Fatou Gallagherasael Start: 10-10-2018 Hemoglobin and Hematocrit panel - Blood Stan Dashawn Canseco Work Phone: Start: 10-10-2018 Vancomycin [Mass/volume] in Serum or Plasma --trough Demetrice Lakatos Start: 10-10-2018 Hemoglobin and Hematocrit panel - Blood Stan Canseco Work Phone: Start: 10-10-2018 Hemoglobin and Hematocrit panel - Blood Stan Canseco Work Phone: Start: 10-09-2018 Radiologic exam chest single view Stan Tamez Ajith Work Phone: Start: 10-09-2018 Blood occult peroxidase actv qual other sources Stan Canseco Work Phone: Start: 10-09-2018 Complete blood count (hemogram) panel - Blood by Automated count Ofe Wood Work Phone: Start: 10-09-2018 Basic metabolic 2000 panel - Serum or Plasma Ofe Buckleykathryn Work Phone: Start: 10-09-2018 Creatinine [Mass/volume] in Serum or Plasma Fatou Britton Start: 10-08-2018 Echocardiography Aaron Choi Work Phone: Start: 10-08-2018 Radiologic examination foot 2 views Ofe Wood Work Phone: Start: 10-08-2018 OXYGEN TITRATE Ofecedrick Buckleykathryn Work Phone: Start: 10-08-2018 Procedure on tissue [...] [Mass/volume] in Serum or Plasma --trough Fatou Oralenski Start: 10-07-2018 Creatinine [Mass/volume] in Serum or Plasma Fatou Ordavidi Start: 10-05-2018 Complete blood count (hemogram) panel [...] Hemoglobin and Hematocrit panel - Blood Vianca Rebeccahortensia Franco Work Phone: Start: 09-13-2018 Basic metabolic 2000 panel - Serum or Plasma Miryam Rincon Work Phone: Start: 09-13-2018 Complete blood count (hemogram) panel - Blood by Automated count Miryam Rincon Work Phone: Start: 09-13-2018 INR in Platelet poor plasma by Coagulation assay Miryam Rincon Work Phone: Start: 09-13-2018 Complete blood count (hemogram) panel - Blood by Automated count Tiana Em Work Phone: Start: 09-12-2018 Basic metabolic 2000 panel - Serum or Plasma Pacoa Erin Rincon Work Phone: Start: 09-12-2018 Complete blood count (hemogram) panel - Blood by Automated count Miryam Rincon Work Phone: Start: 09-12-2018 INR in Platelet poor plasma by Coagulation assay Miryam Rincon Work Phone: Start: 09-12-2018 Hemoglobin and Hematocrit panel - Blood Vianca Marshallffy Work Phone: Start: 09-11-2018 Packed RBC preparation Miryam christie Work Phone: Start: 09-11-2018 Blood type and Indirect antibody screen panel - Blood Pacoa Erin Rincon Work Phone: Start: 09-11-2018 Basic metabolic 2000 panel - Serum or Plasma Sanchovana B Rosalest Work Phone: Start: 09-11-2018 Complete blood count (hemogram) panel - Blood by Automated count Pacoa Erin Rincon Work Phone: Start: 09-11-2018 INR in Platelet poor plasma by Coagulation assay Sanchovana B Sergey Work Phone: Start: 09-11-2018 Complete blood count (hemogram) panel - Blood by Automated count Tiana Em Work Phone: Start: 09-10-2018 Electrocardiogram Provider Not In System Start: 09-10-2018 Non-invas physiologic std extremity art 2 level Esau Alejandro Work Phone: Start: 09-10-2018 Basic metabolic 2000 panel - Serum or Plasma Sanchovana B Sergey Work Phone: Start: 09-10-2018 Complete blood count [...] Plasma Sanchovana B Rosalest Work Phone: Start: 09-09-2018 Complete blood count (hemogram) panel - Blood by Automated count Miryam Rincon Work Phone: Start: 09-09-2018 INR in Platelet poor plasma by Coagulation assay Miryam Rincon Work Phone: Start: 09-08-2018 Basic metabolic 2000 panel - Serum or Plasma Miryam Rincon Work Phone: Start: 09-08-2018 Complete blood [...] in Platelet poor plasma by Coagulation assay iMryam Rincon Work Phone: Start: 09-07-2018 APTT - reference Vianca Franco Work Phone: Start: 09-06-2018 Blood group typing Mohsen Sarabia Work Phone: Start: 09-06-2018 Complete blood count (hemogram) panel - Blood by Automated count Tiana Em Work Phone: Start: 09-06-2018 Blood type and Indirect antibody screen panel - Blood Miryam Rincon Work Phone: Start: 09-06-2018 Dup-scan xtr veins unilateral/limited study Esau Bazan Flavia Work Phone: Start: 09-06-2018 Basic metabolic [...] Health Questionnaire 9) score Depression Screening/Follow-Up (PHQ-2/9) [facility] Start: 04-28-2025 Influenza vaccination Influenza Vacc ine (#1) [facility] Start: 04-26-2025 Medicare Annual Well ness (AWV) Medicare Annual Wellness (AWV) [facility] Start: 04-24-2025 End: 04-24-2025 Patient encounter procedure 04/24/2025 1:00 PM EDT Office Visit [facility] [address] [facility] [address] [place] [phone] Emmanuel Gonzalez DPM [address] [facility] [address] [place] [address] [facility] Start: 04-14-2025 End: 04-14-2026 MR Foot - right WO contrast MR foot right wo IV contrast Imaging Routine Osteomyelitis of right foot, unspecified type (HCC) Expected: 04/14/2025, Expires: 04/14/2026 [facility] Work Phone: Comment on above: Expected: 04/14/2025 , Expires: 04/14/2026 Start: 04-08-2025 End: 04-08-2026 SUPERFICIAL WOUND (HTRX) SUPERFICIAL WOUND (HTRX) Lab Routine Ischemic toe ulcer, right, with 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) Expected: 04/08/2025 (Approximate), Expires: 04/08/2026 [facility] Work Phone: Comment on above: Expected: 04/08/2025 (Approximate), Expires: 04/08/2026 Start: 04-08-2025 End: 04-08-2025 Patient encounter procedure 04/08/2025 11:30 AM EDT Office Visit [facility] [place] [facility] [address] [facility] [address] [place] [phone] Zoë King PA [address] [facility] [address] [place] [address] Arrived [facility] [place] Comment on above: Arrived Start: 03-14-2025 End: 03-14-2025 Patient encounter procedure [facility] Per[facility] Lab Start: 03-12-2025 [facility] Start: 03-12-2025 [facility] Start: 01-09-2025 End: 01-09-2026 Bacteria identified [...] [address] [place] [address] Bhaskar Wilson NP [address] [place] [address] Arrived [facility] Comment on above: Arrived Start: 11-04-2024 End: 11-04-2024 Patient encounter procedure 11/04/2024 10:45 AM EDT Office Visit [facility] [address] [place] [address] Flash Lovelace MD [address] [place] [address] [facility] Start: 08-12-2024 End: 08-12-2024 Patient encounter procedure 08/12/2024 1:30 PM EST Office Visit [facility] [address] [place] [address] Flash Lovelace MD [address] [place] [address] [facility] Start: 07-29-2024 End: 07-29-2024 Patient encounter procedure 07/29/2024 10:00 AM EST Office Visit [facility] [address] [place] [address] Flash Lovelace MD [address] [place] [address] [facility] Start: 06-06-2024 History and physical examination, annual for health maintenance Wellness Visit [facility] Start: 06-06-2024 Medicare Annual Well ness (AWV) Medicare Annual Wellness (AWV) [facility] Start: 06-06-2024 Medicare Wellness Visit Medicare Wel lness Visit [facility] Start: 05-21-2024 End: 05-21-2024 Patient encounter procedure 05/21/2024 1:00 PM EDT Office Visit [facility] [address] [place] [address] Zoë King PA [address] [place] [address] Arrived [facility] Comment on above: Arrived Start: 04-28-2024 COVID-19 Vaccine ( season) COVID-19 Vaccine ( season) [facility] Start: 04-28-2024 Influenza vaccination Influenza Vacc ine (#1) [facility] Start: 04-26-2024 End: 04-26-2024 Patient encounter procedure 04/26/2024 9:30 AM EDT Office Visit [facility] [address] [place] [address] Zoë King PA [address] [place] [address] Arrived [facility] Comment on above: Arrived Start: 10-12-2023 [facility] Start: 08-09-2023 End: 08-09-2023 [facility] Start: 07-13-2023 End: 07-13-2023 Patient encounter procedure 07/13/2023 Office Visit Orthopaedics Scar Ortega, [employer] CONSULTANT [address] [place] [address] [facility] Start: 05-16-2023 End: 07-15-2024 Ultrasound ankle / brachial indices extremity complete Ultrasound ankle / brachial indices extremity complete Vascular Ultrasound Routine PAD (peripheral artery disease) (HCC) Expected: 05/16/2023, Expires: 07/15/2024 [facility] Work Phone: Comment on above: Expected: 05/16/2023 , Expires: 07/15/2024 Start: 05-16-2023 End: 07-15-2024 US Duplex Bypass Graft Left LE US Duplex Bypass Graft Left LE Vascular Ultrasound Routine PAD (peripheral artery disease) (HCC) Expected: 05/16/2023, Expires: 07/15/2024 [facility] Comment on above: Expected: 05/16/2023 , Expires: 07/15/2024 Start: 04-28-2023 COVID-19 Vaccine ( season) COVID-19 Vaccine ( season) [facility] Start: 04-28-2023 COVID-19 VACCINE ( season) COVID-19 VACCINE ( season) [facility] Start: 04-28-2023 Influenza vaccination Sequenti al Influenza Vaccine (#1) [facility] Start: 10-30-2022 Annual Wellness Visi t (AWV) Annual Wellness Visit (AWV) [facility] Start: 07-14-2022 End: 07-14-2022 Patient encounter procedure 07/14/2022 Office Visit Orthopaedics Scar Ortega, AMELIA-TRANSPORTATION CONSULTANT [address] [place] [address] [facility] Start: 05-25-2022 End: 07-25-2023 Carotid artery doppler assessment Carotid Duplex Vascular Ultrasound Routine Bilateral carotid artery stenosis Expected: 05/25/2022, Expires: 07/25/2023 [facility] Work Phone: Comment on above: Expected: 05/25/2022 , Expires: 07/25/2023 Start: 05-23-2022 End: 05-23-2022 Patient encounter procedure 05/23/2022 Office Visit Pulmonology Wagner Moon MD [address] [facility] [address] [place] [address] [facility] Pulmonary Physicians Start: 05-11-2022 End: 02-25-2023 CT of chest without contrast CT Chest Without Contrast Imaging Routine Pulmonary nodule Expected: 05/11/2022, Expires: 02/25/2023 [facility] Work Phone: Comment on above: Expected: 05/11/2022 , Expires: 02/25/2023 Start: 05-11-2022 End: 05-11-2022 Patient encounter procedure 05/11/2022 Appointment Radiology Wagner Moon MD [address] [place] [address] [facility] CT Scan Start: 04-28-2022 Influenza vaccination Sequenti al Influenza Vaccine (#1) [facility] Start: 04-25-2022 [facility] Work Phone: Start: 01-19-2022 End: 01-19-2022 Patient encounter procedure [facility] Peripheral Vascular Lab Start: 01-12-2022 End: 01-12-2022 Patient encounter procedure 01/12/2022 Office Visit Orthopaedics Dashawn Silvestre MD [address] [place] [address] [facility] Start: 11-29-2021 End: 11-29-2021 ambulatory 11/29/2021 Rehab Services Visit Physical Therapy Dashawn Silvestre MD [address] [place] [address] Andree Cronin, PT [address] [place] [address] [facility] [place] Start: 11-04-2021 COVID-19 Vaccine (4 - Booster for Moderna series) COVID-19 Vaccine (4 - Booster for Moderna series) [facility] Start: 11-04-2021 COVID-19 Vaccine (4 - Moderna series) COVID-19 Vaccine (4 - Moderna series) [facility] Start: 10-08-2021 History and physical examination, annual for health maintenance Wellness Visit [facility] Start: 04-28-2021 Influenza vaccination Sequenti al Influenza Vaccine (#1) [facility] Start: 04-06-2021 End: 06-06-2022 Carotid artery doppler assessment Carotid Duplex Vascular Ultrasound Routine Bilateral carotid artery stenosis Expected: 04/06/2021, Expires: 06/06/2022 [facility] Comment on above: Expected: 04/06/2021 , Expires: 06/06/2022 Start: 04-06-2021 End: 06-06-2022 Ultrasound ankle / brachial indices extremity complete Ultrasound ankle / brachial indices extremity complete Vascular Ultrasound Routine PAD (peripheral artery disease) ([facility]) Expected: 04/06/2021, Expires: 06/06/2022 [facility] Comment on above: Expected: 04/06/2021 , Expires: 06/06/2022 Start: 04-06-2021 End: 06-06-2022 Ultrasound duplex arterial leg left Ultrasound duplex arterial leg left Vascular Ultrasound Routine PAD (peripheral artery disease) (HCC) Expected: 04/06/2021, Expires: 06/06/2022 [facility] Comment on above: Expected: 04/06/2021 , Expires: 06/06/2022 Start: 03-30-2021 COVID-19 VACCINE (3 - Booster for Moderna series) COVID-19 VACCINE (3 - Booster for Moderna series) [facility] Start: 12-23-2020 COVID-19 Vaccine (3 - Booster for Moderna series) COVID-19 Vaccine (3 - Booster for Moderna series) [facility] Start: 09-30-2020 History and physical examination, annual for health maintenance Wellness Visit [facility] Start: 04-28-2020 Influenza vaccinatio n given Sequential Influenza Vaccine (#1) [facility] Start: 10-21-2019 End: 10-21-2019 Appointment 10/21/2019 Appointment Radiology Mohsen Sarabia MD [address] [facility] [address] [place] [address] [phone] [facility] CT Start: 04-28-2019 Influenza vaccinatio n given SEQUENTIAL INFLUENZA VACCINE (#1) [facility] Start: 03-18-2019 End: 03-18-2019 Appointment 03/18/2019 Appointment Cardiology Mohsen Sarabia MD [address] [facility] [address] [place] [address] [phone] [facility] Peripheral Vascular Lab Start: 11-01-2018 End: 11-01-2018 Appointment [facility] Cardiac Non-Invasive Lab Start: 10-31-2018 End: 10-31-2018 Appointment [facility] Cardiac Non-Invasive Lab Start: 10-25-2018 End: 10-25-2018 Office Visit 10/25/2018 Office Visit Wound Care Flynn Mann DPM [address] [place] [address] [phone] [facility]ound [facility] Start: 10-10-2018 End: 10-10-2018 Follow-Up 10/10/2018 Follow-Up Cardiothoracic Surgery Mohsen Sarabia MD [address] [address] [phone] [facility] Heart, Lung & Vascular Surgeons Start: 10-04-2018 End: 10-04-2018 Office Visit 10/04/2018 Office Visit Wound Care Flynn Mann DPM [address] [place] [address] [phone] [facility]ound [facility] Start: 10-03-2018 End: 10-03-2018 Follow-Up 10/03/2018 Follow-Up Cardiothoracic Surgery Mohsen Sarabia MD [address] [facility] [address] [place] [address] [phone] [facility] Surgeons Start: 09-20-2018 End: 09-20-2018 Office Visit 09/20/2018 Office Visit Wound Care Flynn Mann, DPM [address] [place] [address] [phone] [facility] Start: 04-28-2018 Influenza vaccinatio n given SEQUENTIAL INFLUENZA VACCINE (#1) [facility] Start: 05-18-2016 Pneumococcal vaccination PNEUM OCOCCAL VACCINE AGE 65+ (2 of 2 - PPSV23) [facility] Start: 07-13-2015 Pneumococcal Vaccine : Age 50+ (2 of 2 - PPSV23) Pneumococcal Vaccine: Age 50+ (2 of 2 - PPSV23) [facility] Start: 07-13-2015 Pneumococcal Vaccine : Age 50+ (2 of 2 - PPSV23, PCV20, or PCV21) Pneumococcal Vaccine: Age 50+ (2 of 2 - PPSV23, PCV20, or PCV21) [facility] Start: 07-13-2015 Pneumococcal Vaccine : Age 65+ (1 of 2 - PPSV23) Pneumococcal Vaccine: Age 65+ (1 of 2 - PPSV23) [facility] Start: 07-13-2015 Pneumococcal Vaccine : Age 65+ (2 - PPSV23 or PCV20) Pneumococcal Vaccine: Age 65+ (2 - PPSV23 or PCV20) [facility] Start: 07-13-2015 Pneumococcal Vaccine : Age 65+ (2 of 2 - PPSV23 or PCV20) Pneumococcal Vaccine: Age 65+ (2 of 2 - PPSV23 or PCV20) [facility] Start: 07-13-2015 Pneumococcal Vaccine : Age 65+ (2 of 2 - PPSV23) Pneumococcal Vaccine: Age 65+ (2 of 2 - PPSV23) [facility] Start: 2014 Respiratory Syncytia l Virus Immunization: Risk, 60-74 Risk, or 75+ (1 - 1-dose 75+ series) Respiratory Syncytial Virus Immunization: Risk, 60-74 Risk, or 75+ (1 - 1-dose 75+ series) [facility] Start: 01-04-2004 Fall risk assessment [place] [facility] Start: 01-04-2004 Pneumococcal vaccination [facility] Start: 1989 Administration of he rpes zoster vaccine ZOSTER VACCINES (1 of 2) [facility] Start: 1989 Shingles vaccine (1 of 2) Shingles vaccine (1 of 2) [facility] Start: 1989 Zoster vaccine hzv l tatum for subcutaneous use ZOSTER (SHINGLES) VACCINE (1 of 2) [facility] Start: 01-04-1984 Colonoscopy COLORECTAL CAN CER SCREENING DISCUSSION [facility] Start: 01-04-1984 Screening for malign ant neoplasm of colon COLORECTAL CANCER SCREENING DISCUSSION [facility] Start: 1958 Third diphtheria, tetanus and acellular pertussis (DTaP) vaccination TDAP (ADULT) [facility] Start: 1957 Tetanus vaccination [facility] Start: 1951 Adolescent depressio n screening assessment Depression Screening (PHQ9) [facility] Start: 1951 COVID-19 Vaccine (1) COVID-19 Vaccin e (1) [facility] Start: 1951 Depression Screen Depression Screen [facility] Start: 1951 Depression screening using PHQ-9 (Patient Health Questionnaire 9) score [facility] Start: 1949 Lipid panel Lipids [facility] Start: 1945 Pneumococcal vaccination PNEUM OCOCCAL VACCINE SERIES (1 - PCV) [facility] Start: 1942 History and physical examination, annual for health maintenance Wellness Visit [facility] Start: 1939 COVID-19 VACCINE (#1) COVID-19 VACCI NE (#1) [facility] Start: 1939 Fall risk assessment Falls Risk Asse ssment [facility] Start: 1939 Tetanus vaccination [facility] Bacteria identified in Blood by Culture Blood Culture Aerobic/Anaerobic Microbiology Routine 01/18/2022 9:05 PM EDT [facility] Work Phone: End: 01-08-2023 CT of chest without contrast CT Chest Without Contrast Imaging Routine Community acquired pneumonia of left lower lobe of lung 1 Occurrences starting 11/08/2022 until 01/08/2023 [facility] Work Phone: Comment on above: 1 Occurrences starti ng 11/08/2022 until 01/08/2023 Patient Education [facility] Work Phone: Patient referral [facility] Work Phone: Transfusion of red b lood cells Transfuse RBC STAT 09/11/2018 6:52 PM EST [facility] End: 09-20-2019 X-ray of left ankle XR Ankle Left 3+ Views (Standard) Routine Critical lower limb ischemia 1 Occurrences starting 09/20/2018 until 09/20/2019 [facility] Comment on above: 1 Occurrences starti ng 09/20/2018 until 09/20/2019 X-ray of left ankle XR Ankle Lef t 3+ Views (Standard) Routine Critical lower limb ischemia 09/20/2018 3:30 PM EST [facility] End: 09-20-2019 X-ray of left foot XR Foot Left 3+ Views (Standard) Routine Critical lower limb ischemia 1 Occurrences starting 09/20/2018 until 09/20/2019 [facility] Comment on above: 1 Occurrences starti ng 09/20/2018 until 09/20/2019 X-ray of left foot XR Foot Left 3+ Views (Standard) Routine Critical lower limb ischemia 09/20/2018 3:29 PM EST [facility] XR Pelvis and Hip - right Views XR HIP WITH PELVIS RIGHT Imaging Routine Pain in prosthetic joint, subsequent encounter 11/24/2021 9:21 AM EDT [facility] XR Pelvis and Hip - right Views XR HIP WITH PELVIS RIGHT Imaging Routine Hx of total hip arthroplasty, right 01/12/2022 8:59 AM EDT [facility] XR Pelvis and Hip - right Views XR HIP WITH PELVIS RIGHT Imaging Routine Hx of total hip arthroplasty, right 07/14/2022 10:44 AM EST [facility] XR Pelvis and Hip - right Views XR HIP WITH PELVIS RIGHT Imaging Routine Hx of total hip arthroplasty, right 08/10/2023 10:49 AM [facility] Immunizations Immunization Date Immunization Notes Care Provider [facility] 08-12-2024 Influenza, High-dose Seasonal, Quadrivalent, Preservative Free Flash Lovelace MD Work Phone: [facility] 08-12-2024 influenza virus vacc ine, unspecified formulation Ludivina Garcia RN [facility] 06-06-2023 influenza virus vacc ine, unspecified formulation BRENNA MOSQUERA [facility] 06-06-2023 Influenza, High-dose Seasonal, Quadrivalent, Preservative Free Zoë Hemmer PA Work Phone: [facility] 05-31-2022 influenza virus vacc ine, unspecified formulation BRENNA JAY [facility] 05-31-2022 Influenza, High-dose Seasonal, Quadrivalent, Preservative Free Zoë Hemmer PA Work Phone: [facility] 09-09-2021 SARS-CoV-2 (COVID-19 ) mRNA-1273 vaccine BRENNA JAY [facility] 06-21-2021 influenza virus vacc ine, unspecified formulation BRENNA JAY [facility] 06-21-2021 influenza, high dose seasonal, preservative-free Zoë Hemmer PA Work Phone: [facility] 10-28-2020 SARS-CoV-2 (COVID-19 ) mRNA-1273 vaccine BRENNA JAY [facility] 10-08-2020 pneumococcal polysaccharide vaccine, 23 valent BRENNA JAY [facility] 09-30-2020 SARS-CoV-2 (COVID-19 ) mRNA-1273 vaccine BRENNA JAY [facility] Comment on above: Result Comment: 2023: [id number] 06-02-2020 influenza virus vacc ine, unspecified formulation BRENNA JAY [facility] 06-02-2020 influenza, high dose seasonal, preservative-free Zoë Hemmer PA Work Phone: [facility] 05-28-2020 influenza virus vacc ine, unspecified formulation BRENNA MOSQUERA [facility] 05-28-2020 influenza, seasonal, injectable Zoë BROWER Work Phone: [facility] 05-28-2020 pneumococcal conjuga te vaccine, 13 valent BRENNALEONOR MOSQUERA [facility] 09-30-2019 tetanus toxoid, redu cole diphtheria toxoid, and acellular pertussis vaccine, adsorbed BRENNALEONOR MOSQUERA [facility] 06-18-2019 influenza virus vacc ine, unspecified formulation BRENNA MOSQUERA [facility] 06-18-2019 Seasonal trivalent influenza vaccine, adjuvanted, preservative free Mohsen Walker [facility] 06-06-2018 influenza virus vacc ine, unspecified formulation BRENNA JAY [facility] 06-06-2018 influenza, high dose seasonal, preservative-free Mohsen Walker [facility] 06-06-2018 Influenza, High-dose Seasonal, Quadrivalent, Preservative Free Zoë Rochemer PA Work Phone: [facility] 05-22-2017 influenza virus vacc ine, unspecified formulation BRENNA JAY [facility] 05-22-2017 influenza, injectabl e, quadrivalent, contains preservative Mohsen Walker [facility] 07-11-2016 influenza, injectabl e, quadrivalent, preservative free Zoë King PA Work Phone: [facility] 05-18-2015 influenza virus vacc ine, unspecified formulation BRENNA JAY [facility] 05-18-2015 influenza, high dose seasonal, preservative-free Mohsen Walker [facility] 05-18-2015 pneumococcal conjuga te vaccine, 13 valent Mohsen Sarabia [facility] pneumococcal vaccine , unspecified formulation Mohsen Sarabia MD Work Phone: [facility] pneumococcal vaccine , unspecified formulation Uri Voss DO Work Phone: [facility] Payers Date Payer Category Payer Self-pay [id number] 2024 Unknown [id number] 2019 Private Health Insurance [id number] 2017 Medicare [employer] M [employer] M[employer] ADVANTAGE CHOICE PPO xxxxxxxxx 2017- [id number] [id number] 2017 Medicare [employer] MANAGED M [employer] ADVANTAGE CHOICE PPO [id number] 2017-Present [id number] 2017 Medicare [id number] 2017 Medicare (Managed Care) [employer] M EDICARE ADVANTAGE 1.2.840.823428.1.13.693. 2.7.9.763187.361445.315 2017 Medicare PPO 1.2.840.182589. 1.13.385. 2.7.9.137151.464.315 1959 Unknown [id number] 1940 Unknown [id number] 2.16.840.1.660564.3.579. 2.903 1939 Unknown [id number] 2.16.840.1.081850.3.579. 2.902 1939 Unknown [id number] 2.16.840.1.250869.3.579. 2.903 1939 Unknown [id number] 2.16.840.1.603652.3.579. 2.903 1939 Unknown [id number] 2.16.840.1.847589.3.579. 2.754 1939 Unknown [id number] 2.16.840.1.374653.3.579. 2.593 1939 Unknown [id number] 2.16.840.1.192790.3.579. 2.593 1939 Unknown [id number] 2.16.840.1.019530.3.579. 2.593 1939 Unknown [id number] 2.16.840.1.454759.3.579. 2.593 1939 Unknown [id number] 2.16.840.1.848069.3.579. 2.983 1939 Unknown [id number] 2.16.840.1.816115.3.579. 2.983 1939 Unknown [id number] 2.16.840.1.687631.3.579. 2.727 1939 Unknown [id number] 2.16.840.1.354657.3.579. 2.173 1939 Unknown [id number] 2.16.840.1.005862.3.579. 2.1259 1939 Unknown [id number] 2.16.840.1.543832.3.579. 2.1259 1939 Unknown [id number] 2.16.840.1.397015.3.579. 2.1258 1939 Unknown [id number] 2.16.840.1.002753.3.579. 2.1258 1939 Unknown [id number] 2.16.840.1.747146.3.579. 2.1258 1939 Unknown [id number] 2.16.840.1.470103.3.579. 2.1258 1939 Unknown [id number] 2.16.840.1.894323.3.579. 2.1258 1939 Unknown [id number] 2.16.840.1.574741.3.579. 2.1258 1939 Unknown [id number] 2.16.840.1.941476.3.579. 2.1258 1939 Unknown [id number] 2.16.840.1.345211.3.579. 2. 1939 Unknown [id number] 2.16.840.1.787883.3.579. 2. 1939 Unknown [id number] 2.16.840.1.370606.3.579. 2. 1939 Unknown [id number] 2.16.840.1.100036.3.579. 2. 1939 Unknown [id number] 2.16.840.1.989344.3.579. 2. 1939 Unknown [id number] 2.16.840.1.127413.3.579. 2.903 1939 Unknown [id number] 2.16.840.1.140540.3.579. 2.3 1939 Unknown [id number] 2.16.840.1.841097.3.579. 2.903 1939 Unknown [id number] 2.16.840.1.422057.3.579. 2.903 Unknown HCAP/HFA/FAP Active [id number] Unknown [id number] 2.16.840.1.728082.3.579. 2.531 Unknown [id number] 2.16.840.1.272697.3.579. 2.531 Unknown [id number] 2..840.1.045914.3.579. 2.531 Social History Date Type Detail Facility Start: 09-10-2018 End: 06-21-2024 Tobacco smoking status NHIS Never smoker [facility] Start: 1940 Sex Assigned At Not on file [facility] Start: 10-09-2019 End: 04-14-2025 Alcohol intake Ex-drinker (finding) [facility] Start: 10-21-2019 End: 06-21-2024 Tobacco use and exposure Never used [facility] Start: 11-24-2021 End: 08-10-2023 Alcohol intake Current non-drinker of alcohol (finding) [facility] Start: 12-11-2021 End: 11-03-2022 Exposure to SARS-CoV-2 (event) Not sure [facility] Start: 09-04-2018 End: 06-21-2024 Cigarette pack-years [facility] Start: 11-30-2022 End: 06-21-2024 Sex Assigned At [facility] Start: 1940 Sex Assigned At [facility] Tobacco smoking status Never [facility] Start: 07-16-2018 Gender identity Identifies as male gender (finding) [facility] Start: 09-04-2018 Sexual orientation Heterosexual (finding) [facility] Start: 04-15-2023 Alcohol Comment Coffee 1-2 cups [...] Not at all [facility] (I/We) worried wheth er (my/our) food would run out before (I/we) got money to buy more. Never true [facility] [employer] Work Phone: Start: 10-31-2022 History SDOH Alcohol Frequency 1 [employer] Work Phone: Start: 10-31-2022 History SDOH Alcohol Std Drinks 0 [employer] Phone: How often do you nee d to have someone help you when you read instructions, pamphlets, or other written material from your doctor or pharmacy [SILS] Rarely [facility] Sex Male (finding) [facility] Medical Equipment Procedure Code Equipment Code Equipment Origin al Text Equipment Identifier Dates Hemostat 2 X 4in Surgicel Fibrillar - [id number] Start: 09-07-2018 Hemostat 2 X 4in Surgicel Fibrillar - [id number] Start: 09-07-2018 Hemostat 2 X 4in Surgicel Fibrillar - [id number] Start: 09-07-2018 Hemostat 2 X 4in Surgicel Fibrillar - [id number] Start: 09-07-2018 Hemostat 2 X 4in Surgicel Fibrillar - [id number] Start: 09-07-2018 Hemostat 2 X 4in Surgicel Fibrillar - [id number] Start: 09-07-2018 Hemostat 2 X 4in Surgicel Fibrillar - [id number] Start: 09-07-2018 Hemostat 2 X 4in Surgicel Fibrillar - [id number] Start: 09-07-2018 Hemostat 2 X 4in Surgicel Fibrillar - [id number] Start: 09-07-2018 Hemostat 2 X 4in Surgicel Fibrillar - [id number] Start: 09-07-2018 Hemostat 2 X 4in Surgicel Fibrillar - [id number] Start: 09-07-2018 Hemostat 2 X 4in Surgicel Fibrillar - [id number] Start: 09-07-2018 Hemostat 2 X 4in Surgicel Fibrillar - [id number] Start: 09-07-2018 Hemostat 2 X 4in Surgicel Fibrillar - [id number] Start: 09-07-2018 Hemostat 2 X 4in Surgicel Fibrillar - [id number] Start: 09-07-2018 Hemostat 2 X 4in Surgicel Fibrillar - [id number] Start: 09-07-2018 Hemostat 2 X 4in Surgicel Fibrillar - [id number] Start: 09-07-2018 Hemostat 2 X 4in Surgicel Fibrillar - [id number] Start: 09-07-2018 Drummond Altrx Polyethylene Acetabular Liner Neutral 36mm Id 62mm Od [id number] Start: 07-15-2021 Angio-Seal 6f Vi p - [id number] FDA Start: 08-09-2018 Palacos Lv 1x40 Single - [id number] Start: 07-15-2021 Hemostat 2 X 4in Surgicel Fibrillar - [id number] Start: 03-17-2025 Sealant 10ml Hemostatic Matrix Fast Prep Floseal W/Recothrom - [id number], [id number] FDA Start: 03-17-2025 Goals Date Patient [...] Health Quest ionnaire 2 item (PHQ-2) [Reported] [facility] 04-08-2025 Patient Health Quest ionnaire 2 item (PHQ-2) [Reported] [facility] 03-31-2025 Patient Health Quest ionnaire 2 item (PHQ-2) [Reported] [facility] 01-09-2025 Patient Health Quest ionnaire 2 item (PHQ-2) [Reported] [facility] 12-26-2023 Functional Status N/A [facility] 12-20-2022 Functional Status N/A [facility] Clinical Notes 11-24-2021 to 04-29-2025 Telephone Encounter - LEONARDA Villavicencio - 04/29/2025 9:54 PM EDTTelephone Encounter - LEONARDA Villavicencio - 04/29/2025 9:54 PM EDTMohsen Sarabia MD - 04/23/2025 3:00 PM EDTDischarge Instructions Note Date & Type Note Facility 04-29-2025 Telephone encounter Note Metoprolol sent. [facility] 04-29-2025 Miscellaneous Notes Metoprolol sent. documented in this encounter [facility] 04-23-2025 Note I saw Mr. Powell in of [facility] today for a follow-up visit. He is [...] wound care under the care of a environmental auditor. He is on his ASA, xarelto and [...] AUTHENTICATED BY MOHSEN SARABIA, ON 04/23/2025 15:06:32 [facility] 04-23-2025 History of Present illness Narrative [...] wound care under the care of a environmental auditor. He is on his ASA, xarelto and [...] close to home. documented in this encounter [facility] 04-21-2025 Telephone encounter Note Patient requests Zofran refilled [facility] 04-21-2025 Miscellaneous Notes Patient requests Zofran refilled documented in this encounter [facility] 04-14-2025 History of Present illness Narrative Associated [...] 2009 Avascular necrosis of bone of hip ([facility]) 09/04/2011 Right hip Right hip CAD (coronary artery disease) 2013 Carotid artery disease Cataract 2014 Cellulitis 01/19/2022 [facility] Cellulitis LLE Colon polyps 2012 Critical lower limb ischemia ([facility]) 09/04/2018 Last Assessment & Plan: Pt s/p LLE angiogram with Dr Hahn who feels that the pt has no further endovascular options. He has consulted Dr. Sarabia for a possible tibial bypass. Pt s/p LLE critical limb ischemia Dale class 4 rest pain with distal discoloration to his toes Gangrene of left foot ([facility]) 10/04/2018 Groin hematoma 2014 RT Femoral groin Hematoma H/O myocardial perfusion scan 07/09/2019 LVEF 56% Myocardial perfusion imaging shows a defect in Apical wall Herpes zoster 09/04/2011 History of being hospitalized 12/06/2020 Strep Pneumonia, Resp. Failure - [facility] History of being hospitalized [place] [facility] 07/15/2021-07/16/2021 History of coronary angiogram [...] incomplete bowel prep Diverticulosis Dr. Rowe at [facility] COLONOSCOPY W/ POLYPECTOMY 2011 CORONARY ARTERY [...] HISTORY 04/25/[address] LE catheterization Dr. Hahn MA MEDICATION MANAGEMENT 11/2020 Multi resistant Strep Pneumonia, [...] follow-ups on file. documented in this encounter [facility] 04-09-2025 Telephone encounter Note The incorrect test [...] ran in error. Spoke with Deena at [facility]. [facility] 04-09-2025 Miscellaneous Notes The incorrect test was [...] ran in error. Spoke with Deena at [facility]. documented in this encounter [facility] 04-08-2025 History of Present illness Narrative Images [...] 2009 Avascular necrosis of bone of hip ([facility]) 09/04/2011 Right hip Right hip CAD (coronary artery disease) 2013 Carotid artery disease Cataract 2014 Cellulitis 01/19/2022 [facility] Cellulitis LLE Colon polyps 2011 Critical lower limb ischemia ([facility]) 09/04/2018 Last Assessment & Plan: Pt s/p LLE angiogram with Dr Hahn who feels that the pt has no further endovascular options. He has consulted Dr. Sarabia for a possible tibial bypass. Pt s/p LLE critical limb ischemia Deann class 4 rest pain with distal discoloration to his toes Gangrene of left foot ([facility]) 10/04/2018 Groin hematoma 2013 RT Femoral groin Hematoma H/O myocardial perfusion scan 07/09/2019 LVEF 56% Myocardial perfusion imaging shows a defect in Apical wall Herpes zoster 09/04/2011 History of being hospitalized 12/06/2020 Strep Pneumonia, Resp. Failure - [facility] History of being hospitalized [place] [facility] 07/15/2021-07/16/2021 History of coronary angiogram [...] 10/2016 Preinfarcation syndrome, CABGx3 Prostate cancer ([facility]) 2009 SOB (shortness of breath) Unstable angina ([facility]) 2014 XR 06/18/2019 XR shows impingement to [...] incomplete bowel prep Diverticulosis Dr. Rowe at [facility] COLONOSCOPY W/ POLYPECTOMY 2011 CORONARY ARTERY [...] HISTORY 04/25/[address] LE catheterization Dr. Hahn MA MEDICATION MANAGEMENT 11/2020 Multi resistant Strep Pneumonia, [...] for 7 days. - SUPERFICIAL WOUND (HTRX); [facility] Provided pt with referral to Home Health [...] Medication Follow Up. documented in this encounter [facility] 04-02-2025 Note I saw Mr. Powell today [...] AUTHENTICATED BY MOHSEN SARABIA, ON 04/02/2025 12:15:56 [facility] 04-02-2025 History of Present illness Narrative I [...] care and OMT. documented in this encounter [facility] 03-31-2025 History of Present illness Narrative Images [...] getting better. Hospital Information ED, Hospital or [facility] Facility Discharge? Hospital Patient has been contacted within two business days of discharge Yes Diagnosis claudication, rightleg pain, PAD Discharge Date 03/21/25 Discharged To: Home Setting Discharge Hospital [facility] Engagement Call Start Time 1226 Admission Date [...] yes What is the home health agency? [facility] Has home health visited the patient within [...] had recent balloon angioplasty 03/12/2025,. presented to [facility] ED on 03/14/2025 from Vascular Surgery [...] 2008 Avascular necrosis of bone of hip (HCC) 09/04/2011 Right hip Right hip CAD (coronary artery disease) 2013 Carotid artery disease Cataract 2014 Cellulitis 01/19/2022 [facility] Cellulitis LLE Colon polyps 2012 Critical lower limb ischemia ([facility]) 09/04/2018 Last Assessment & Plan: Pt s/p [...] Failure - [facility] History of being hospitalized [place] [facility] 07/15/2021-07/16/2021 History of coronary angiogram [...] 10/2016 Preinfarcation syndrome, CABGx3 Prostate cancer ([facility]) 2009 SOB (shortness of breath) Unstable angina ([facility]) 2014 XR 06/18/2019 XR shows impingement to [...] incomplete bowel prep Diverticulosis Dr. Rowe at [facility] COLONOSCOPY W/ POLYPECTOMY 2011 CORONARY ARTERY [...] HISTORY 04/25/[address] Hahn MA MEDICATION MANAGEMENT 11/2020 Multi resistant Strep Pneumonia, [...] for this patient. documented in this encounter [facility] 03-21-2025 History of Present illness Narrative Spiritual Care Progress Note Completed by: Froylan Higgins Person(s) Present During this Visit: Patient Time Spent in Direct Patient Care: 30 Narrative: This Surface Supervisor visited Tristin while rounding. Pt identifies as congregational and finds hope/support in family. Surface Supervisor provided empathetic listening with supportive presence and compassionate care. Pt shared a narrative of illness and some life experiences. Pt expressed gratitude for club room attendant's support and visit. Pt was informed about 20/03 availability of the Chaplains, and how to contact. Pastoral Care Team will remain available to provide emotional and spiritual care support PRN. Patients Response to Pastoral Care: Expressed Gratitude for Visit, Appeared to be well-engaged Planning for Future Visits: PRN Patient's Spiritual Needs Assessment 03/21/25 1600 Visit Background Visit With Patient Visit By Staff Surface Supervisor Visit Progression Introduction Visit Requested By Surface Supervisor Initiated Visit Source Surface Supervisor Initiated Visit Type Inpatient;Rounding Visit Circumstances and Events Routine Visit Visit Length (minutes) 30 Patient's Response to Pastoral Care Expressed Gratitude for Visit;Appeared to be well-engaged Visit Planning PRN Spiritual Assessment Assessed during this visit Worship Assessment Assessed during this visit Family assessment provided? Unable to asess during this visit Patient Spiritual Needs Assessment Sources of Connection Son;Daughter;Other (see comment) (family) Belief Practices Attends Worship Services Image of the Divine Answers Prayer;Comforter;Creator;Healer; [...] of Care Focus on Wellness;Receive Comfort Patient Worship Needs Assessment Worship Connection Attends as Often as Able Worship Home Jain Catholic Connection Non-Catholic Place of [place] - Name [facility] [place] Worship Resources Hope/Trust in God;Prayer Worship Rituals [place];Prayer Expressed Outcome Expressed Gratitude;Expressed Hope RevJosephine Curiel MBA., M.Div Staff [facility], [place] [phone] Physical Therapy PHYSICAL THERAPY TREATMENT NOTE Skilled Therapy Needs After Discharge Anticipate Resolution of Current Assessment Limitations Including: Pain, Mechanical Barriers Are obstetrics/gynecology nurse Therapy Services Needed After Discharge: Yes Intensity of obstetrics/gynecology nurse Therapy: Up to 5 days per week Anticipated Duration of obstetrics/gynecology nurse Therapy: Duration 7 - 10 days PT [...] - Static: Contact guard assist, with device Pump House Operator - Standing Static: wheeled walker Standing Balance - Dynamic: Contact guard assist, with device Pump House Operator - Standing Dynamic: wheeled walker Skilled Intervention [...] (Seated EOB post session with nursing notified) Pump House Operator: bedrails, bed positioning mechanics Skilled Intervention Provided: [...] Lateral Transfers: Contact guard assist, Minimal assist Pump House Operator: wheeled walker Skilled Intervention Provided: verbal cues, [...] secondary impairment(s) Car Transfers: Contact guard assist Pump House Operator: wheeled walker Skilled Intervention Provided: verbal cues, [...] walker.) Prior Level of Function Level of [place] - Transfers/Ambulation/Mobility: Independent with functional transfers Level of [place] - ADLs: Independent Level of [place] - Homemaking: Independent Driving: Patient drives Vocational: [...] of : 1940 Discharge Plan: D/C Disposition: [facility] Facility Related to Current Admission?: Yes Plan A: Home Health Care Services Plan B: Home Discharging Transportation Plan: Transportation Type: Auto Discharge Plan Status: home vs SNF CM following for dc needs. Chart reviewed, patient last able to work with therapy 03/20, current recs are up to 5 with ampac of 19. Patient originally wanted to go home with [facility]. After discussion with attending physician, now open to snf placement. Patient walking 20 feet. Will obtain choices and send referrals. Patient will need precert once med ready. Patient nearing med readiness. If unable to secure SNF will plan for home going plan with [facility], will place hub order for therapy. Will continue to follow as patient progresses medically. Addendum 919: hub order placed for [facility] therapy. One accepted, likely plan for discharge later today once c accepted. Addendum 1551: patient now wanting OP therapy. Order placed, and updated liaison to cancel [facility] order. Patient now med ready for discharge. Assessment and Background Information: Physical Therapy PHYSICAL THERAPY TREATMENT NOTE Skilled Therapy Needs After Discharge Anticipate Resolution of Current Assessment Limitations Including: Pain, Mechanical Barriers Are obstetrics/gynecology nurse Therapy Services Needed After Discharge: Yes Intensity of obstetrics/gynecology nurse Therapy: Up to 5 days per week Anticipated Duration of obstetrics/gynecology nurse Therapy: Duration 7 - 10 days PT [...] - Static: Contact guard assist, Minimal assist Pump House Operator - Standing Static: wheeled walker Standing Balance - Dynamic: Contact guard assist, Minimal assist Pump House Operator - Standing Dynamic: wheeled walker Skilled Intervention [...] to Supine: (Pt ended session in recliner) Pump House Operator: bedrails, bed positioning mechanics Transfers Sit to Stand: Moderate assist, 2 person assist (x1 from bed, x1 from toilet, x1 from recliner) Stand Pivot Transfers: Minimal assist Pump House Operator: wheeled walker Skilled Intervention Provided: verbal cues, [...] walker.) Prior Level of Function Level of [place] - Transfers/Ambulation/Mobility: Independent with functional transfers Level of [place] - ADLs: Independent Level of [place] - Homemaking: Independent Driving: Patient drives Vocational: [...] Lopez PT at 03/21/2025 12:32 PM EDT [facility] Inpatient Progress Note 03/20/2025 Tristin Powell 1940 [id number] Assessment/Plan: Tristin Hortensia Powell is a 85 y.o. male with a history of Peripheral Artery Disease s/p Bypass, Afib (Xarelto), Diastolic Heart Failure, Coronary Artery Disease s/p CABG, recent balloon angioplasty 03/12/2025,. presented to [facility] ED on 03/14/2025 from Vascular Surgery clinic with intractable right foot pain. Found to have critical right LE ischemia Critical right lower limb ischemia: History of PAD. Follows Dr. Beaver ([facility] Vascular Surgery) and Dr. Sarabia (Vascular Surgery) [...] S/p IV pain meds. 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 Moving well with [...] s/p left fem to peroneal bypass (2019, ), left TMA who presented to [facility] on 03/14/2025 with worsening RLE pain and [...] TREV COLEMAN MD General Surgery Resident, PGY-1 [facility] Please contact surgical director international pony roll finisher 5PM-6AM and weekends - #[phone] VTS Pager - #[phone] Subjective NAEO. Has been ambulating. New bruising [...] IMAGING/LABS Interval imaging and laboratory results reviewed [facility] Inpatient Progress Note 03/19/2025 Tristin Powell 1940 [id number] Assessment/Plan: Tristin Powell is a 85 y.o. male with a history of Peripheral Artery Disease s/p Bypass, Afib (Xarelto), Diastolic Heart Failure, Coronary Artery Disease s/p CABG, recent balloon angioplasty 03/12/2025,. presented to [facility] ED on 03/14/2025 from Vascular Surgery clinic with intractable right foot pain. Found to have critical right LE ischemia Critical right lower limb ischemia: History of PAD. Follows Dr. Beaver ([facility] Vascular Surgery) and Dr. Sarabia (Vascular Surgery) [...] added, wean as able. CAD: Followed by [facility] Cardiology s/p 3 vessel coronary artery [...] xarelto Medication Reconciliation: Reviewed using patient interview, tire maintenance technician Current living situation: home Expected Disposition: PT/OT rec up to 5 pt requesting home with [facility], following. Estimated discharge date: ~03/20/2025 Medically Ready [...] major joint deformity: RLE tired leg and scooping machine tender to touch. Moving well with [...] (2019, Walker), left TMA who presented to [facility] on 03/14/2025 with worsening RLE pain and [...] TREV COLEMAN MD General Surgery Resident, PGY-1 [facility] Please contact surgical director international pony roll finisher 5PM-6AM and weekends - #[phone] VTS Pager - #[phone] Subjective NAEO. Was able to get up [...] Limitations Including: Mechanical Barriers, Social Support Are obstetrics/gynecology nurse Therapy Services Needed After Discharge: Yes Intensity of obstetrics/gynecology nurse Therapy: Up to 5 days per week Anticipated Duration of obstetrics/gynecology nurse Therapy: Duration 10 - 30 days PT [...] Supine: Minimal assist, Head of bed flat Pump House Operator: bedrails, patient slide sheet / friction-reducing device, [...] walker.) Prior Level of Function Level of [place] - Transfers/Ambulation/Mobility: Independent with community ambulation, Independent with household ambulation, Independent with functional transfers Level of [place] - ADLs: Independent Level of [place] - Homemaking: Independent Driving: Patient drives Vocational: [...] Arthritis Avascular necrosis of bone of hip ([facility]) Claudication COPD (chronic obstructive pulmonary disease) ([facility]) Coronary artery disease Herpes zoster Hyperlipidemia Hypertension PAD (peripheral artery disease) ([facility]) 01/21/2022 Posterior tibial tendinitis of right leg 11/07/2022 Prostate cancer (HCC) Vascular disease Past Surgical History: Procedure Laterality Date 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/08/2018 Procedure: LEFT MIDFOOT AMPUTATION; Surgeon: Flynn Mann DPM; Location: [facility] OR; Service: Podiatry ANKLE SURGERY Left BYPASS FEMOROTIBIAL REPAIR/GRAFT Right 03/17/2025 Procedure: RIGHT FEMORAL TO TIBIAL BYPASS WITH ARM VEIN. Angiogram; Surgeon: Mohsen Sarabia MD; Location: [facility]; Service: Gen-Vascular; Laterality: Right; BYPASS PERONEAL FEMORAL Right 09/07/2018 Procedure: BYPASS PERONEAL FEMORAL, RIGHT SAPHENOUS VEIN HARVEST, COMPLETION ANGIOGRAM; Surgeon: Mohsen Sarabia MD; Location: [facility]; Service: Cardiovascular CARDIAC CATHETERIZATION Left 09/05/2018 Procedure: Angio Lower Extremity; Surgeon: Ben Hahn MD; Location: [facility]; Service: Cardiovascular CARDIAC SURGERY 2017 triple bypass EGD N/A 10/10/2018 Procedure: ESOPHAGOGASTRODUODENOSCOPY; Surgeon: Ben Jensen MD; Location: [facility] End[facility]; Service: Gastroenterology EYE SURGERY Right 2014 [...] hospital or completion of Physical Therapy Plan. [facility] Inpatient Progress Note 03/18/2025 Tristin Bazan Sherry 1940 [id number] Assessment/Plan: Tristin Powell is a 85 y.o. male with a history of Peripheral Artery Disease s/p Bypass, Afib (Xarelto), Diastolic Heart Failure, Coronary Artery Disease s/p CABG, recent balloon angioplasty 03/12/2025,. presented to [facility] ED on 03/14/2025 from Vascular Surgery clinic with intractable right foot pain. Found to have critical right LE ischemia Critical right lower limb ischemia: History of PAD. Follows Dr. Beaver ([facility] Vascular Surgery) and Dr. Sarabia (Vascular Surgery) [...] dose. IV Dilaudid added. 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 Moving well with [...] (2019, Walker), left TMA who presented to [facility] on 03/14/2025 with worsening RLE pain and discoloration. Arterial Duplex (03/14/25): 50-99% stenosis in the right mid SFA YAMILE's (03/14/25): Right YAMILE is 0.50. Left YAMILE is 0.55. CTLI IV Aortic Stenosis -Admitted to medicine -s/p RLE distal SFA to peroneal bypass w/ reversed LUE cephalic vein, completion angio w/ diminutive runoff via peroneal (03/17, Monty) -Diet as tolerated -Discontinue qureshieranne -UOOB, AAT, IS -Continue ASA 81 -Will discuss with Dr. Sarabia TREV COLEMAN MD General Surgery Resident, PGY-2 [facility] Please contact surgical director international pony roll finisher 5PM-6AM and weekends - #[phone] VTS Pager - #[phone] Subjective NAEO. Feels good this morning. Wants [...] (Jony, Monty), left TMA who presented to [facility] on 03/14/2025 with worsening RLE pain and [...] Walker MD General Surgery Please contact surgical director international pony roll finisher 5PM-6AM and weekends VTS Pager - #[phone] SUBJECTIVE Patient is resting in bed with [...] pending at this time. Pt agreeable to [facility] if recommended and has no agency preference. Per Vasc Surg, pt scheduled for OR today for LLE fem-tib bypass today. Continuing to follow as medical plan evolves. Assessment and Background Information: [facility] Inpatient Progress Note 03/17/2025 Tristin Powell 1940 [id number] Assessment/Plan: Tristin Powell is a 85 y.o. male with a history of Peripheral Artery Disease s/p Bypass, Afib (Xarelto), Diastolic Heart Failure, Coronary Artery Disease s/p CABG, recent balloon angioplasty 03/12/2025,. presented to [facility] ED on 03/14/2025 from Vascular Surgery clinic with intractable right foot pain. Found to have critical right LE ischemia Critical right lower limb ischemia: History of PAD. Follows Dr. Beaver ([facility] Vascular Surgery) and Dr. Sarabia (Vascular Surgery) [...] dose. IV Dilaudid added. 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 Moving well with [...] (Monty Borges), left TMA who presented to [facility] on 03/14/2025 with worsening RLE pain and [...] Beena Barraza MD General Surgery Resident, PGY-2 [facility] Please contact surgical director international pony roll finisher 5PM-6AM and weekends - #[phone] ARS Pager - #[phone] Subjective NAEO. Is ready for surgery tomorrow, [...] and rubor. He had undergone angiography in [place], with chronic occlusion of an aneurysm/ectatic right [...] for bypass operation as the best option. [facility] Inpatient Progress Note 03/16/2025 Tristin Powell 1940 [id number] Assessment/Plan: Tristin Powell is a 85 y.o. male with a history of Peripheral Artery Disease s/p Bypass, Afib (Xarelto), Diastolic Heart Failure, Coronary Artery Disease s/p CABG, Hypertension, CKD III, COPD, Prostate Cancer, and Insomnia. Patient had outpatient angiogram 03/12/25 with balloon angioplasty. He presented to [facility] ED on 03/14/2025 from Vascular Surgery clinic with intractable right foot pain. In ED: right YAMILE 0.5; 50-99% stenosis in right mid superficial femoral artery; WBC 3.5. Course prolonged due to need for angiogram and Xarelto washout. Peripheral Artery Disease: Followed by Dr. Beaver ([facility] Vascular Surgery) and Dr. Sarabia (Vascular Surgery) [...] additional for acute pain. 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 Moving well with [...] 03/16/25 0907 03/14/25 1128 INR 1.1 1.1 [facility] Inpatient Progress Note 03/15/2025 Tristin Powell 1940 [id number] Assessment/Plan: Tristin Powell is a 85 y.o. male with a history of Peripheral Artery Disease s/p Bypass, Afib (Xarelto), Diastolic Heart Failure, Coronary Artery Disease s/p CABG, Hypertension, CKD III, COPD, Prostate Cancer, and Insomnia. Patient had outpatient angiogram 03/12/25 with balloon angioplasty. He presented to [facility] ED on 03/14/2025 from Vascular Surgery clinic with intractable right foot pain. In ED: right YAMILE 0.5; 50-99% stenosis in right mid superficial femoral artery; WBC 3.5. Course prolonged due to need for angiogram and Xarelto washout. Peripheral Artery Disease: Followed by Dr. Beaver ([facility] Vascular Surgery) and Dr. Sarabia (Vascular Surgery) [...] additional for acute pain. 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 Moving well with [...] Vascular Cardiology Inpatient Follow-up Heart & Vascular [facility] 03/15/2025 Mirna Fenton CNP [facility] Patient: Tristin Powell Date of : 1940 (85 y.o.) PCP: Flash Lovelace MD Assessment/Plan: Carotid stenosis, asymptomatic, bilateral Assessment & Plan Asymptomatic. No hx of CVA Non-invasive Studies: Carotid Duplex (04/2024): Left ICA with mild <50% stenosis of heterogenous plaque. Right ICA with moderate 50-69% stenosis of heterogenous plaque Coronary artery disease involving coronary bypass graft of [place] heart without angina pectoris Assessment & Plan S/p 3v CABG in 2017 Asymptomatic Critical lower limb ischemia (HCC) Assessment & Plan Presents from Dr. 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 Plan for RLE angio +/- intervention 03/17/25, [...] Final Result by Interface, Lab Results In [facility] (03/15/2025 0701) Echocardiogram complete w contrast Final [...] mg 81 mg Oral Daily Demetrice Escobar, TRANSPORTATION CONSULTANT 81 mg at 03/14/25 1705 atorvastatin (LIPITOR) tablet 80 mg 80 mg Oral Nightly GrandinMuna perez MD 80 mg at 03/14/25 2110 azelastine (ASTELIN) 137 mcg (0.1 %) nasal spray 1 spray 1 spray Each Nare Daily Muna Otto MD calcium carbonate (TUMS) chewable tablet 500 mg 500 mg Oral Daily PRN Muna Otto MD enoxaparin (LOVENOX) syringe 40 mg 40 mg Subcutaneous Daily Muna Otto, MD furosemide (LASIX) tablet 20 mg 20 mg Oral Every Other Day Grandin, Muna hBatti MD HYDROmorphone (DILAUDID) injection 0.5 mg 0.5 mg Intravenous Q3H PRN Muna Otto MD 0.5 mg at 03/14/252109 losartan (COZAAR) tablet 50 mg 50 mg Oral Daily with lunch GrandinMuna denise MD melatonin Tab 5 mg 5 mg Oral Nightly PRN Muna Otto MD metoprolol tartrate (LOPRESSOR) tablet 50 mg 50 mg Oral BID GrandinMuna denise MD 50 mg at 03/14/252109 naloxone (NARCAN) [...] powder 17 g 17 g Oral Daily Muna Otto MD polyvinyl alcohol (LIQUIFILM TEARS) 1.4 % [...] tablet 10 mg 10 mg Oral Nightly GrandinMuna denise MD 10 mg at 03/14/25 2236 documented in this encounter [facility] 03-21-2025 Note MEDONE DISCHARGE Tristin Thakkar Account: [id number] Admitted: 03/14/2025 Discharge Date/Time: 03/21/25 3:57 PM ___ Handoff to PCP Routine hospital follow up Outpatient follow-up with vascular surgery. Continued Xarelto. Clinical Summary Tristin Powell is a 85 y.o. male with a history of Peripheral Artery Disease s/p Bypass, Afib (Xarelto), Diastolic Heart Failure, Coronary Artery Disease s/p CABG, recent balloon angioplasty 03/12/2025,. presented to [facility] ED on 03/14/2025 from Vascular Surgery clinic with intractable right foot pain. Found to have critical right LE ischemia s/p distal SFA to peroneal bypass. Discharged home with outpatient therapy. Critical right lower limb ischemia: History of PAD. Follows Dr. Beaver ([facility] Vascular Surgery) and Dr. Sarabia (Vascular Surgery) [...] S/p IV pain meds. CAD: Followed by [facility] Cardiology s/p 3 vessel coronary artery [...] Medications New Medications Details naloxone 4 mg/actuation [place] Commonly known as: NARCAN Administer 1 spray [...] visible water re (more content not included)... [facility] 03-21-2025 Hospital course Narrative MEDONE DISCHARGE SUMMARY Tristin Powell Account: [id number] Admitted: 03/14/2025 Discharge Date/Time: 03/21/25 3:57 PM ___ Handoff to PCP Routine hospital follow up Outpatient follow-up with vascular surgery. Continued Xarelto. Clinical Summary Tristin Powell is a 85 y.o. male with a history of Peripheral Artery Disease s/p Bypass, Afib (Xarelto), Diastolic Heart Failure, Coronary Artery Disease s/p CABG, recent balloon angioplasty 03/12/2025,. presented to [facility] ED on 03/14/2025 from Vascular Surgery clinic with intractable right foot pain. Found to have critical right LE ischemia s/p distal SFA to peroneal bypass. Discharged home with outpatient therapy. Critical right lower limb ischemia: History of PAD. Follows Dr. Beaver ([facility] Vascular Surgery) and Dr. Sarabia (Vascular Surgery) [...] S/p IV pain meds. CAD: Followed by [facility] Cardiology s/p 3 vessel coronary artery [...] Medications New Medications Details naloxone 4 mg/actuation [place] Commonly known as: NARCAN Administer 1 spray [...] Physician(s) Family: Flash Lovelace MD, , Address: [address] [place] [address] / [facility] [id number] Follow Up: Physicians, [facility] [place] [id number] Follow up Thank you for allowing us to participate in your care. Please follow up with your vascular surgery team after discharge. Please call our office with any questions or concerns. OTHER - NOT IN LIST [place] [id number] Additional Information: Patient seen and examined day of discharge. For more information regarding patient's care, including complete radiology reports, please contact [facility] Records at Patient instructions, including activity, were given to the patient/family at discharge. Please see the After Visit Summary in the medical record for details. Time spent on discharge: > 30 minutes Completed by: Uri Voss DO on 03/21/25, 3:57 PM documented in this encounter [facility] 03-21-2025 Hospital Discharge instructions Beena Barraza MD [...] if you need help quitting smoking: call 5-978-PJNJ-NOW ( ) or visit numberFireee.gov for more information. Who to Call: [facility] Vascular Surgery [place] [facility] Please call the office number at [phone] to confirm your follow-up appointment, or if you have any questions or concerns. documented in this encounter [facility] 03-21-2025 Consult note Associated Order (s): IP CONSULT TO HOME HEALTH HUB HOME HEALTH CARE DISCHARGE PLAN Consulted for [facility] services: PT, OT Agency preference: [place] If discharge needs change, please reach out to liaison assigned on treatment team as hub is not notified of new consults once team is following. Thank you. Patients needing wound care or infusions (IVs or enteral feeds) should not discharge until [facility] is completely set up. AddendUm 1056: Rec'd call from araceli Agarwal accepted. AVS updated. Addendum 7535: Rec'd msg from Christopher CM, pt elects outpt therapy. [facility] discontinued and update sent to [facility]. Is [facility] plan complete or pending? Pt elects outpt tx Name of accepting C agency: [facility] - notified Referrals sent to: (names of agencies) Please be advised that agencies have 24 hours to respond to referrals. [facility] (did not send) [facility] (orders) placed? discontinued Verify demographics (discharge address) [address] [address] [place] [employer] [place] What is the primary phone number? [phone] Who is your primary care physician? Flash [...] = Start of Care TCG = Teachable Cotton Jammer [facility] 03-21-2025 Consult note Associated Order (s): IP CONSULT TO HOME HEALTH HUB HOME HEALTH CARE DISCHARGE PLAN Consulted for [facility] services: PT, OT Agency preference: [facility] If discharge needs change, please reach out to liaison assigned on treatment team as hub is not notified of new consults once team is following. Thank you. Patients needing wound care or infusions (IVs or enteral feeds) should not discharge until [facility] is completely set up. AddendUm 1056: Rec'd call from Any, referral accepted. AVS updated. Addendum 1541: Rec'd msg from Richie CM, pt elects outpt therapy. [facility] discontinued and update sent to [facility]. Is [facility] plan complete or pending? Pt elects outpt tx Name of accepting [facility] agency: [facility] - notified Referrals sent to: (names of agencies) Please be advised that agencies have 24 hours to respond to referrals. [facility] (did not send) [facility] (orders) placed? discontinued Verify demographics (discharge address) [address] [address] [place] What is the primary phone number? [phone] Who is your primary care physician? Flash [...] = Start of Care TCG = Teachable Cotton Jammer Associated Order(s): IP CONSULT TO CARE MANAGEMENT; [...] 5 with ampac of 10. Per previous [facility] note, patient was agreeable to hhc services [...] intolerance. 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 [...] Supine: (Post-session Pt left in EOB position.) Pump House Operator: bedrails Functional Transfers Sit to Stand: Minimal assist, Moderate assist, 2 person assist Pump House Operator: wheeled walker Additional Functional Transfer Trial 2: Yes Sit to Stand Trial 2: Contact guard assist, Minimal assist Bed to Chair Trial 2: Contact guard assist, Minimal assist Pump House Operator Trial 2: wheeled walker Home Living Obtained [...] walker.) Prior Level of Function Level of [place] - Transfers/Ambulation/Mobility: Independent with functional transfers Level of [place] - ADLs: Independent Level of [place] - Homemaking: Independent Driving: Patient drives Vocational: [...] (HCC) Claudication COPD (chronic obstructive pulmonary disease) ([facility]) Coronary artery disease Herpes zoster Hyperlipidemia Hypertension PAD (peripheral artery disease) ([facility]) 01/21/2022 Posterior tibial tendinitis of right leg 11/07/2022 Prostate cancer ([facility]) Vascular disease Past Surgical History: Procedure Laterality Date 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/08/2018 Procedure: LEFT MIDFOOT AMPUTATION; Surgeon: Flynn Mann DPM; Location: [facility] OR; Service: Podiatry ANKLE SURGERY Left BYPASS FEMOROTIBIAL REPAIR/GRAFT Right 03/17/2025 Procedure: RIGHT FEMORAL TO TIBIAL BYPASS WITH ARM VEIN. Angiogram; Surgeon: Mohsen Sarabia MD; Location: [facility]; Service: Gen-Vascular; Laterality: Right; BYPASS PERONEAL FEMORAL Right 09/07/2018 Procedure: BYPASS PERONEAL FEMORAL, RIGHT SAPHENOUS VEIN HARVEST, COMPLETION ANGIOGRAM; Surgeon: Mohsen Sarabia MD; Location: [facility]; Service: Cardiovascular CARDIAC CATHETERIZATION Left 09/05/2018 Procedure: Angio Lower Extremity; Surgeon: Ben Hahn MD; Location: [facility]; Service: Cardiovascular CARDIAC SURGERY 2017 triple bypass EGD N/A 10/10/2018 Procedure: ESOPHAGOGASTRODUODENOSCOPY; Surgeon: Ben Jensen MD; Location: [facility] Endo; Service: Gastroenterology EYE SURGERY Right 2014 [...] Plan: Transportation Type: Auto Discharge Plan Status: BOW MAKER MACHINE TENDER consulted for discharge needs. PT recommending therapy 2-3 days per week. OT pending. BOW MAKER MACHINE TENDER met with pt at bedside to discuss HHC level of care. Pt agreeable HHC. Pt with no [preference of agency. Pt's son will be primary caregiver upon discharge and will transport pt home when medically ready. BOW MAKER MACHINE TENDER confirmed pt demographics including address on file, [...] Assessment Limitations Including: Mechanical Barriers, Pain Are obstetrics/gynecology nurse Therapy Services Needed After Discharge: Yes Intensity of obstetrics/gynecology nurse Therapy: 2-3 days per week Anticipated Duration of obstetrics/gynecology nurse Therapy: Duration 10 - 30 days PT [...] Standing Balance - Static: Contact guard assist Pump House Operator - Standing Static: wheeled walker Standing Balance - Dynamic: Contact guard assist Pump House Operator - Standing Dynamic: same hand rug braider used for static standing tasks Bed Mobility Rolling: Supervision Supine to Sit: Supervision Sit to Supine: (patient sitting EOB) Pump House Operator: bedrails Transfers Sit to Stand: Contact guard assist Pump House Operator: wheeled walker Gait/Locomotion Gait Assistance: Contact guard [...] walker.) Prior Level of Function Level of [place] - Transfers/Ambulation/Mobility: Independent with community ambulation, Independent with household ambulation, Independent with functional transfers Level of [place] - ADLs: Independent Level of [place] - Homemaking: Independent Driving: Patient drives Vocational: [...] Arthritis Avascular necrosis of bone of hip ([facility]) Claudication COPD (chronic obstructive pulmonary disease) ([facility]) Coronary artery disease Herpes zoster Hyperlipidemia Hypertension PAD (peripheral artery disease) ([facility]) 01/21/2022 Posterior tibial tendinitis of right leg 11/07/2022 Prostate cancer ([facility]) Vascular disease Past Surgical History: Procedure Laterality Date 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/08/2018 Procedure: LEFT MIDFOOT AMPUTATION; Surgeon: Flynn Mann DPM; Location: [facility] OR; Service: Podiatry ANKLE SURGERY Left BYPASS PERONEAL FEMORAL Right 09/07/2018 Procedure: BYPASS PERONEAL FEMORAL, RIGHT SAPHENOUS VEIN HARVEST, COMPLETION ANGIOGRAM; Surgeon: Mohsen Sarabia MD; Location: [facility]; Service: Cardiovascular CARDIAC CATHETERIZATION Left 09/05/2018 Procedure: Angio Lower Extremity; Surgeon: Ben Hahn MD; Location: [facility]; Service: Cardiovascular CARDIAC SURGERY 2017 triple bypass EGD N/A 10/10/2018 Procedure: ESOPHAGOGASTRODUODENOSCOPY; Surgeon: Ben Jensen MD; Location: [facility] Endo; Service: Gastroenterology EYE SURGERY Right 2015 [...] Vascular Cardiology Inpatient Consult Heart & Vascular [facility] 03/14/2025 Demetrice Escobar, TRANSPORTATION CONSULTANT [id number] [phone] Patient: Tristin Powell Date of : 1940 [...] Recently underwent RLE angio on 03/12/25 via [facility] Non-invasive Studies: RLE arterial duplex (03/14/25): 50-99% stenosis in the right mid superficial femoral artery. YAMLIE (03/14/2025): Right 0.5, Left 0.55; TBIs 0.00 [...] RLE angiograms dated 03/12/25 and 10/12/23 from [facility]. Will review non-invasive studies as obtained earlier today as well as [facility] RLE angiograms with PV attending. Final [...] underwent formal LE angio on 03/12/25 via [facility]. Follows with Dr. Carvalho, cardiology, at [facility]. Last OV 11/2024. Son is present [...] was drawn out. Relevant Vascular History: 06/2024: [facility] demonstrating stable coronary artery disease. Patent [...] SVG to PDA) via [facility] 10/2007: [facility] with MARIA ESTHER to LAD and LCx Objective Imaging: I independently reviewed the non-invasive vascular studies and agree with the interpretation(s) ECG 12 Lead Final Result by Interface, Lab Results In [facility] (11/07/2022 1139) Echocardiogram complete w contrast [...] Arthritis Avascular necrosis of bone of hip ([facility]) Claudication COPD (chronic obstructive pulmonary disease) ([facility]) Coronary artery disease Herpes zoster Hyperlipidemia Hypertension PAD (peripheral artery disease) ([facility]) 01/21/2022 Posterior tibial tendinitis of right leg 11/07/2022 Prostate cancer ([facility]) Vascular disease Past Surgical History: Procedure Laterality Date 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/08/2018 Procedure: LEFT MIDFOOT AMPUTATION; Surgeon: Flynn Mann DPM; Location: [facility] OR; Service: Podiatry ANKLE SURGERY Left BYPASS PERONEAL FEMORAL Right 09/07/2018 Procedure: BYPASS PERONEAL FEMORAL, RIGHT SAPHENOUS VEIN HARVEST, COMPLETION ANGIOGRAM; Surgeon: Mohsen Sarabia MD; Location: [facility]; Service: Cardiovascular CARDIAC CATHETERIZATION Left 09/05/2018 Procedure: Angio Lower Extremity; Surgeon: Ben Hahn MD; Location: [facility]; Service: Cardiovascular CARDIAC SURGERY 2017 triple bypass EGD N/A 10/10/2018 Procedure: ESOPHAGOGASTRODUODENOSCOPY; Surgeon: Ben Jensen MD; Location: [facility]; Service: Gastroenterology EYE SURGERY Right 2015 [...] (two) times a day 1/ tab . AZELASTINE (ASTELIN) 137 MCG (0.1 [...] to contact me, my mobile number is [phone]. Respectfully, Demetrice Martinez APRN [facility] Phys[facility] [1] Social History [...] He underwent angiography 2 days ago in [place] where he was found to have progressive [...] Arthritis Avascular necrosis of bone of hip ([facility]) Claudication COPD (chronic obstructive pulmonary disease) ([facility]) Coronary artery disease Herpes zoster Hyperlipidemia Hypertension PAD (peripheral artery disease) ([facility]) 01/21/2022 Posterior tibial tendinitis of right leg 11/07/2022 Prostate cancer ([facility]) Vascular disease Allergies: Doxycycline and Gabapentin Current [...] artery as it enters the foot. Impression: Dale 4 critical limb threatening ischemia Advanced peripheral [...] vascular surgery colleagues I personally performed a [id number] diagnostic evaluation on this patient on the [...] mg 650 mg Oral Q4H While awake GrandinMuna denise MD 650 mg at 03/14/25 1456 HYDROmorphone (DILAUDID) injection 0.5 mg 0.5 mg Intravenous Q3H PRN GrandinMuna denise MD naloxone (NARCAN) injection 0.1 mg 0.1 mg Intravenous PRN GrandinMuna denise MD And naloxone (NARCAN) injection 0.4 mg 0.4 mg Intravenous PRN GrandinMuna MD ondansetron (ZOFRAN) injection 4 mg 4 mg Intravenous Q6H PRN GrandinMuna denise MD oxyCODONE-acetaminophen (PERCOCET) 5-325 mg per tablet 1 tablet 1 tablet Oral Q6H PRN GrandinMuna perez MD sodium chloride (PF) (NS) flush [...] (2019, Monty), left TMA who presented to [facility] on 03/14/2025 with worsening RLE pain and [...] Beena Barraza MD General Surgery Resident, PGY-2 [facility] Please contact surgical director international pony roll finisher 5PM-6AM and weekends - #[phone] VTS Pager - #[phone] Admitted with these risk variables:None. Please see [...] Arthritis Avascular necrosis of bone of hip ([facility]) Claudication COPD (chronic obstructive pulmonary disease) ([facility]) Coronary artery disease Herpes zoster Hyperlipidemia Hypertension PAD (peripheral artery disease) ([facility]) 01/21/2022 Posterior tibial tendinitis of right leg 11/07/2022 Prostate cancer ([facility]) Vascular disease Past Surgical History: Procedure Laterality Date 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/08/2018 Procedure: LEFT MIDFOOT AMPUTATION; Surgeon: Flynn Mann DPM; Location: [facility] OR; Service: Podiatry ANKLE SURGERY Left BYPASS PERONEAL FEMORAL Right 09/07/2018 Procedure: BYPASS PERONEAL FEMORAL, RIGHT SAPHENOUS VEIN HARVEST, COMPLETION ANGIOGRAM; Surgeon: Mohsen Sarabia MD; Location: [facility]; Service: Cardiovascular CARDIAC CATHETERIZATION Left 09/05/2018 Procedure: Angio Lower Extremity; Surgeon: Ben Hahn MD; Location: [facility]; Service: Cardiovascular CARDIAC SURGERY 2017 triple bypass EGD N/A 10/10/2018 Procedure: ESOPHAGOGASTRODUODENOSCOPY; Surgeon: Ben Jensen MD; Location: [facility] End[facility]; Service: Gastroenterology EYE SURGERY Right 2015 [...] Resource Strain: Low Risk (06/21/2024) Received from [facility] Overall Financial Resource Strain (CARDIA) Difficulty of Paying Living Expenses: Not hard at all Food Insecurity: No Food Insecurity (06/21/2024) Received from [facility] Hunger Vital Sign Worried About Running Out of Food in the Last Year: Never true Ran Out of Food in the Last Year: Never true Transportation Needs: No Transportation Needs (06/21/2024) Received from [facility] PRAPARE - Transportation Lack of Transportation (Medical): No Lack of Transportation (Non-Medical): No Physical Activity: Insufficiently Active (06/21/2024) Received from [facility] Exercise Vital Sign Days of Exercise per Week: 7 days Minutes of Exercise per Session: 10 min Stress: No Stress Concern Present (06/21/2024) Received from [facility] Citizen Of [place] of Occupational Health - Occupational Stress Questionnaire Feeling of Stress : Not at all Housing Stability: Low Risk (06/21/2024) Received from [facility] Housing Stability Vital Sign Unable to Pay [...] personally examined the patient and agree with resident/FRONT END JAVA DEVELOPER/PA assessment and plan with the following additional findings. Pt known to me with CLTI of the RLE with rest pain and early ischemic skin changes. Plan for R fem tib bypass on Monday for limb salvage documented in this encounter [facility] 03-21-2025 Plan of care note Problem: Actual [...] Absence of pressure injury Outcome: Partially Met [facility] 03-21-2025 Miscellaneous Notes Problem: Actual or potential [...] CABG, recent balloon angioplasty 03/12/2025,. presented to [facility] ED on 03/14/2025 from Vascular Surgery clinic with intractable right foot pain. Found to have critical right LE ischemia. S/p angiogram 03/17/25 with R SFA to peroneal bypass. Past Medical History: Diagnosis Date Arthritis Avascular necrosis of bone of hip ([facility]) Claudication COPD (chronic obstructive pulmonary disease) ([facility]) Coronary artery disease Herpes zoster Hyperlipidemia Hypertension PAD (peripheral artery disease) ([facility]) 01/21/2022 Posterior tibial tendinitis of right leg 11/07/2022 Prostate cancer ([facility]) Vascular disease Past Surgical History: Procedure Laterality Date 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/08/2018 Procedure: LEFT MIDFOOT AMPUTATION; Surgeon: Flynn Mann DPM; Location: [facility]; Service: Podiatry ANKLE SURGERY Left BYPASS FEMOROTIBIAL REPAIR/GRAFT Right 03/17/2025 Procedure: RIGHT FEMORAL TO TIBIAL BYPASS WITH ARM VEIN. Angiogram; Surgeon: Mohsen Sarabia MD; Location: [facility]; Service: Gen-Vascular; Laterality: Right; BYPASS PERONEAL FEMORAL Right 09/07/2018 Procedure: BYPASS PERONEAL FEMORAL, RIGHT SAPHENOUS VEIN HARVEST, COMPLETION ANGIOGRAM; Surgeon: Mohsen Sarabia MD; Location: [facility]; Service: Cardiovascular CARDIAC CATHETERIZATION Left 09/05/2018 Procedure: Angio Lower Extremity; Surgeon: Ben Hahn MD; Location: [facility]; Service: Cardiovascular CARDIAC SURGERY 2017 triple bypass EGD N/A 10/10/2018 Procedure: ESOPHAGOGASTRODUODENOSCOPY; Surgeon: Ben Jensen MD; Location: [facility]; Service: Gastroenterology EYE SURGERY Right 2015 [...] No Nutrition Related Allergies noted Cultural or Worship Dietary Needs :No Cultural or Worship Dietary needs noted Difficulty Chewing or Swallowing: [...] Nightly Continuous Infusions: sodium chloride Serenity Wilson RD,LD,[facility] or in [place] Secure Chat Problem: Actual or potential alteration [...] (85 y.o.) Date of Service: 03/17/2025 CSN: [id number] Procedure(s): RIGHT FEMORAL TO TIBIAL BYPASS WITH ARM VEIN. Angiogram Pre-Operative Diagnoses: * PERIPHERAL ARTERY DISEASE Post-Operative Diagnoses: same Surgeons and Role: * Mohsen Sarabia MD - Primary * Karina Orozco MD - Resident - Assisting Anesthesiologist: Serjio Olivarez MD; Muna Gil MD FLOORING MACHINE OPERATOR: Viviana Dhillon CRNA Sheet Pile Hammer Operator: Lori Diaz RN Police Aide: Jose C Ambrose, TECHNOLOGIST Sheet Pile Hammer Operator Relief: Millicent Cedeño RN; Arlene Watson RN Scrub Person Relief: Izabel Bosch RN Sheet Pile Hammer Operator Orientee: Kaylie Jason RN Sheet Pile Hammer Operator Preceptor: Izabel Bosch RN Scrub Person Preceptor: [...] Implant Name Type Inv. Item Serial No. Wheelabrator Operator Lot No. LRB No. Used Action HEMOSTAT 2 X 4IN SURGICEL FIBRILLAR - SNA HEMOSTAT 2 X 4IN SURGICEL FIBRILLAR NA ETHICON [id number] Right 1 Implanted SEALANT 10ML HEMOSTATIC MATRIX FAST PREP FLOSEAL W/RECOTHROM - [id number] SEALANT 10ML HEMOSTATIC MATRIX FAST PREP FLOSEAL W/RECOTHROM [employer] [id number] Right 1 Implanted Drain(s): Urethral Catheter Non-latex;Straight-tip [...] note author and KULDEEP Jean. 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 Mast for a RLE angio +/- intervention. Orders placed. Consent signed and given to laborer fryer farm. ASA and clopidogrel initiated. Again, no heparin gtt required unless needed in the setting of hx of paroxysmal a.fib (historically on Xarelto; however, has been held over the past week 2/2 RLE angio at [facility] as performed on 03/12/25). Additionally, please [...] RLE angiogram from March 12, 2025 from [facility] sent electronically. This was sent to Juana Escobar NP. She was able to open and view. Images sent to appropriate staff per Juana Escobar CNP. Called and notified the patient's daughter that she does not have to get the disc from [place] and bring to [facility]. Associated Problem(s): Carotid stenosis, asymptomatic, bilateral Asymptomatic. No hx of CVA Non-invasive Studies: Carotid Duplex (04/2024): Left ICA with mild <50% stenosis of heterogenous plaque. Right ICA with moderate 50-69% stenosis of heterogenous plaque Associated Problem(s): Coronary artery disease involving coronary bypass graft of [place] heart without angina pectoris S/p 3v CABG [...] Recently underwent RLE angio on 03/12/25 via [facility] in [place] Non-invasive Studies: RLE arterial duplex (03/14/25): 50-99% [...] therapies as prescribed. documented in this encounter [facility] 03-20-2025 Initial evaluation note 03/20/2025: Nutrition Note [...] CABG, recent balloon angioplasty 03/12/2025,. presented to [facility] ED on 03/14/2025 from Vascular Surgery clinic with intractable right foot pain. Found to have critical right LE ischemia. S/p angiogram 03/17/25 with R SFA to peroneal bypass. Past Medical History: Diagnosis Date Arthritis Avascular necrosis of bone of hip ([facility]) Claudication COPD (chronic obstructive pulmonary disease) ([facility]) Coronary artery disease Herpes zoster Hyperlipidemia Hypertension PAD (peripheral artery disease) ([facility]) 01/21/2022 Posterior tibial tendinitis of right leg 11/07/2022 Prostate cancer ([facility]) Vascular disease Past Surgical History: Procedure Laterality Date 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/08/2018 Procedure: LEFT MIDFOOT AMPUTATION; Surgeon: Flynn Mann DPM; Location: [facility]; Service: Podiatry ANKLE SURGERY Left BYPASS FEMOROTIBIAL REPAIR/GRAFT Right 03/17/2025 Procedure: RIGHT FEMORAL TO TIBIAL BYPASS WITH ARM VEIN. Angiogram; Surgeon: Mohsen Sarabia MD; Location: [facility]; Service: Gen-Vascular; Laterality: Right; BYPASS PERONEAL FEMORAL Right 09/07/2018 Procedure: BYPASS PERONEAL FEMORAL, RIGHT SAPHENOUS VEIN HARVEST, COMPLETION ANGIOGRAM; Surgeon: Mohsen Sarabia MD; Location: [facility]; Service: Cardiovascular CARDIAC CATHETERIZATION Left 09/05/2018 Procedure: Angio Lower Extremity; Surgeon: Ben Hahn MD; Location: [facility]; Service: Cardiovascular CARDIAC SURGERY 2017 triple bypass EGD N/A 10/10/2018 Procedure: ESOPHAGOGASTRODUODENOSCOPY; Surgeon: Ben Jensen MD; Location: [facility]; Service: Gastroenterology EYE SURGERY Right 2014 [...] No Nutrition Related Allergies noted Cultural or Worship Dietary Needs :No Cultural or Worship Dietary needs noted Difficulty Chewing or Swallowing: [...] mg Oral Nightly Continuous Infusions: sodium chloride Sreenity Wilson RD,LD,[facility] or in [place] Secure Chat [facility] 03-20-2025 Note [facility] lucy Note 03/20/2025 Tristin Powell 1940 [id number] Assessment/Plan: Tristin Powell is a 85 y.o. male with a history of Peripheral Artery Disease s/p Bypass, Afib (Xarelto), Diastolic Heart Failure, Coronary Artery Disease s/p CABG, recent balloon angioplasty 03/12/2025,. presented to [facility] ED on 03/14/2025 from Vascular Surgery clinic with intractable right foot pain. Found to have critical right LE ischemia Critical right lower limb ischemia: History of PAD. Follows Dr. Beaver ([facility] Vascular Surgery) and Dr. Sarabia (Vascular Surgery) [...] S/p IV pain meds. 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 Moving well with [...] 4.34* 5.05 HG (more content not included)... [facility] 03-20-2025 Note VASCULAR SURGERY PRO LUCY [...] (2018, Monty), left TMA who presented to [facility] on 03/14/2025 with worsening RLE pain and [...] TREV COLEMAN MD General Surgery Resident, PGY-1 [facility] Please contact surgical director international pony roll finisher 5PM-6AM and weekends - #[phone] VTS Pager - #[phone] Subjective NAEO. Has been ambulating. New bruising [...] AUTHENTICATED BY TREV COLEMAN, ON 03/20/2025 07:05:30 [facility] 03-20-2025 Plan of care note Problem: [...] Absence of pressure injury Outcome: Partially Met [facility] 03-19-2025 Consult note Associated Order (s): IP [...] 5 with ampac of 10. Per previous [facility] note, patient was agreeable to hhc services [...] ready for discharge. Assessment and Background Information: [facility] 03-19-2025 Consult note Formatting of th is [...] intolerance. 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 [...] Supine: (Post-session Pt left in EOB position.) Pump House Operator: bedrails Functional Transfers Sit to Stand: Minimal assist, Moderate assist, 2 person assist Pump House Operator: wheeled walker Additional Functional Transfer Trial 2: Yes Sit to Stand Trial 2: Contact guard assist, Minimal assist Bed to Chair Trial 2: Contact guard assist, Minimal assist Pump House Operator Trial 2: wheeled walker Home Living Obtained [...] walker.) Prior Level of Function Level of [place] - Transfers/Ambulation/Mobility: Independent with functional transfers Level of [place] - ADLs: Independent Level of [place] - Homemaking: Independent Driving: Patient drives Vocational: [...] Arthritis Avascular necrosis of bone of hip ([facility]) Claudication COPD (chronic obstructive pulmonary disease) ([facility]) Coronary artery disease Herpes zoster Hyperlipidemia Hypertension PAD (peripheral artery disease) ([facility]) 01/21/2022 Posterior tibial tendinitis of right leg 11/07/2022 Prostate cancer ([facility]) Vascular disease Past Surgical History: Procedure Laterality Date 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/08/2018 Procedure: LEFT MIDFOOT AMPUTATION; Surgeon: Flynn Mann DPM; Location: [facility]; Service: Podiatry ANKLE SURGERY Left BYPASS FEMOROTIBIAL REPAIR/GRAFT Right 03/17/2025 Procedure: RIGHT FEMORAL TO TIBIAL BYPASS WITH ARM VEIN. Angiogram; Surgeon: Mohsen Sarabia MD; Location: [facility]; Service: Gen-Vascular; Laterality: Right; BYPASS PERONEAL FEMORAL Right 09/07/2018 Procedure: BYPASS PERONEAL FEMORAL, RIGHT SAPHENOUS VEIN HARVEST, COMPLETION ANGIOGRAM; Surgeon: Mohsen Sarabia MD; Location: [facility]; Service: Cardiovascular CARDIAC CATHETERIZATION Left 09/05/2018 Procedure: Angio Lower Extremity; Surgeon: Ben Hahn MD; Location: [facility]; Service: Cardiovascular CARDIAC SURGERY 2017 triple bypass EGD N/A 10/10/2018 Procedure: ESOPHAGOGASTRODUODENOSCOPY; Surgeon: Ben Jensen MD; Location: [facility]; Service: Gastroenterology EYE SURGERY Right 2015 [...] Alcantara OT at 03/19/2025 4:38 PM EDT [facility] 03-19-2025 Note [facility] Note 03/19/2025 Tristin Powell 1940 [id number] Assessment/Plan: Tristin Powell is a 85 y.o. male with a history of Peripheral Artery Disease s/p Bypass, Afib (Xarelto), Diastolic Heart Failure, Coronary Artery Disease s/p CABG, recent balloon angioplasty 03/12/2025,. presented to [facility] ED on 03/14/2025 from Vascular Surgery clinic with intractable right foot pain. Found to have critical right LE ischemia Critical right lower limb ischemia: History of PAD. Follows Dr. Beaver ([facility] Vascular Surgery) and Dr. Sarabia (Vascular Surgery) [...] added, wean as able. CAD: Followed by [facility] Cardiology s/p 3 vessel coronary artery [...] xarelto Medication Reconciliation: Reviewed using patient interview, tire maintenance technician Current living situation: home Expected Disposition: PT/OT rec up to 5 pt requesting home with [facility], following. Estimated discharge date: ~03/20/2025 Medically Ready [...] major joint deformity: RLE tired leg and scooping machine tender to touch. Moving well with [...] K/mcL 4.34* 5 (more content not included)... [facility] 03-19-2025 Note VASCULAR SURGERY PRO LUCY [...] s/p left fem to peroneal bypass (2018, Walker), left TMA who presented to [facility] on 03/14/2025 with worsening RLE pain and [...] TREV COLEMAN MD General Surgery Resident, PGY-1 [facility] Please contact surgical director international pony roll finisher 5PM-6AM and weekends - #[phone] VTS Pager - #[phone] Subjective NAEO. Was able to get up [...] AUTHENTICATED BY TREV COLEMAN, ON 03/19/2025 07:06:48 [facility] 03-18-2025 Note [facility] Note 03/18/2025 Tristin Bazan Sherry 1940 [id number] Assessment/Plan: Tristin Powell is a 85 y.o. male with a history of Peripheral Artery Disease s/p Bypass, Afib (Xarelto), Diastolic Heart Failure, Coronary Artery Disease s/p CABG, recent balloon angioplasty 03/12/2025,. presented to [facility] ED on 03/14/2025 from Vascular Surgery clinic with intractable right foot pain. Found to have critical right LE ischemia Critical right lower limb ischemia: History of PAD. Follows Dr. Beaver ([facility] Vascular Surgery) and Dr. Sarabia (Vascular Surgery) [...] dose. IV Dilaudid added. 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 Moving well with [...] Units 03/18/25 04 (more content not included)... [facility] 03-18-2025 Note VASCULAR SURGERY PRO LUCY [...] (2019, Monty), left TMA who presented to [facility] on 03/14/2025 with worsening RLE pain and [...] TREV COLEMAN MD General Surgery Resident, PGY-2 [facility] Please contact surgical director international pony roll finisher 5PM-6AM and weekends - #[phone] VTS Pager - #[phone] Subjective NAEO. Feels good this morning. Wants [...] AUTHENTICATED BY TREV COLEMAN ON 03/18/2025 06:35:17 [facility] 03-18-2025 History of Present illness Narrative Pt seen by PV cardiology while at [facility]. Per Catina Calixto CNP, no PV cardiology follow up needed, pt to f/u with vascular surgery. documented in this encounter [facility] 03-18-2025 Plan of care note Problem: Actual [...] Absence of pressure injury Outcome: Partially Met [facility] 03-17-2025 Note VASCULAR SURGERY PRO LUCY NOTE [id number] ASSESS[facility] AND PLAN Tristin Powell is a 85 y.o. male with history of arotic stenosis, HTN, dyslipidemia, HFpEF, ascending/thoracic aortic aneurysm (4.[address] dated 04/2024), CAD (NSTEMI; s/p 3v CABG), paroxysmal a.fib, aortic & mitral valve disease, COPD, CKD stage 3, PAD, s/p left fem to peroneal bypass (Jony, Monty), left TMA who presented to [facility] on 03/14/2025 with worsening RLE pain and [...] -Maintain qureshi overnight -Continue to elevate LUE Aib Walker MD General Surgery Please contact surgical director international pony roll finisher 5PM-6AM and weekends VTS Pager - #[phone] SUBJECTIVE Patient is resting in bed with [...] AUTHENTICATED BY ABI WALKER, ON 03/18/2025 03:54:39 [facility] 03-17-2025 Procedure note Brief Post Operative Note Patient Name: Tristin Powell : 1940 (85 y.o.) Date of Service: 03/17/2025 CSN: [id number] Procedure(s): RIGHT FEMORAL TO TIBIAL BYPASS WITH ARM VEIN. Angiogram Pre-Operative Diagnoses: * PERIPHERAL ARTERY DISEASE Post-Operative Diagnoses: same Surgeons and Role: * Mohsen Sarabia MD - Primary * Karina Orozco MD - Resident - Assisting Anesthesiologist: Serjio Olivarez MD; Muna Gil MD FLOORING MACHINE OPERATOR: Viviana Dhillon CRNA Sheet Pile Hammer Operator: Lori Diaz RN Police Aide: Jose C Ambrose TECHNOLOGIST Sheet Pile Hammer Operator Relief: Millicent Cedeño RN; Arlene Watson RN Scrub Person Relief: Izabel Bosch RN Sheet Pile Hammer Operator Orientee: Kaylie Jason RN Sheet Pile Hammer Operator Preceptor: Izabel Bosch RN Scrub Person Preceptor: [...] Implant Name Type Inv. Item Serial No. Wheelabrator Operator Lot No. LRB No. Used Action HEMOSTAT 2 X 4IN SURGICEL FIBRILLAR - SNA HEMOSTAT 2 X 4IN SURGICEL FIBRILLAR NA ETHICON [id number] Right 1 Implanted SEALANT 10ML HEMOSTATIC MATRIX FAST PREP FLOSEAL W/RECOTHROM - [id number] SEALANT 10ML HEMOSTATIC MATRIX FAST PREP FLOSEAL W/RECOTHROM Referrizer BIO [id number] Right 1 Implanted Drain(s): Urethral Catheter Non-latex;Straight-tip [...] Leg Distal;Right;Medial (Active) Wound Closure Approximated;Sutures 03/14/25 000 [REMOVED] Wound 11/04/22 Buttock Left (Removed) Dressing Status Applied 03/14/252099 Drainage Amount None 03/14/25 2100 Drainage Description None 03/14/252099 Primary Dressing Bordered Foam (e.g. mepilex) 03/14/252099 Did the case consist of ANY colon or uterine surgery? NO Karina Orozco MD 03/17/2025 4:30 PM [employer] Work Phone: 03-17-2025 Attending History and physical note INTERVAL HISTORY AND PHYSICAL Patient Name: Tristin Powell Admit Date: [id number] MR #: [id number] : 1940 The H&P has been reviewed [...] (2019, Monty), left TMA who presented to [facility] on 03/14/2025 with worsening RLE pain and [...] Beena Barraza MD General Surgery Resident, PGY-2 [facility] Please contact surgical director international pony roll finisher 5PM-6AM and weekends - #[phone] VTS Pager - #[phone] Admitted with these risk variables:None. Please see [...] Arthritis Avascular necrosis of bone of hip ([facility]) Claudication COPD (chronic obstructive pulmonary disease) ([facility]) Coronary artery disease Herpes zoster Hyperlipidemia Hypertension PAD (peripheral artery disease) ([facility]) 01/21/2022 Posterior tibial tendinitis of right leg 11/07/2022 Prostate cancer ([facility]) Vascular disease Past Surgical History: Procedure Laterality Date 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/08/2018 Procedure: LEFT MIDFOOT AMPUTATION; Surgeon: Flynn Mann DPM; Location: [facility] OR; Service: Podiatry ANKLE SURGERY Left BYPASS PERONEAL FEMORAL Right 09/07/2018 Procedure: BYPASS PERONEAL FEMORAL, RIGHT SAPHENOUS VEIN HARVEST, COMPLETION ANGIOGRAM; Surgeon: Mohsen Sarabia MD; Location: [facility]; Service: Cardiovascular CARDIAC CATHETERIZATION Left 09/05/2018 Procedure: Angio Lower Extremity; Surgeon: Ben Hahn MD; Location: [facility]; Service: Cardiovascular CARDIAC SURGERY 2017 triple bypass EGD N/A 10/10/2018 Procedure: ESOPHAGOGASTRODUODENOSCOPY; Surgeon: Ben Jensen MD; Location: [facility]; Service: Gastroenterology EYE SURGERY Right 2015 [...] Resource Strain: Low Risk (06/21/2024) Received from [facility] Overall Financial Resource Strain (CARDIA) Difficulty of Paying Living Expenses: Not hard at all Food Insecurity: No Food Insecurity (06/21/2024) Received from [facility] Hunger Vital Sign Worried About Running Out of Food in the Last Year: Never true Ran Out of Food in the Last Year: Never true Transportation Needs: No Transportation Needs (06/21/2024) Received from [facility] PRAPARE - Transportation Lack of Transportation (Medical): No Lack of Transportation (Non-Medical): No Physical Activity: Insufficiently Active (06/21/2024) Received from [facility] Exercise Vital Sign Days of Exercise per Week: 7 days Minutes of Exercise per Session: 10 min Stress: No Stress Concern Present (06/21/2024) Received from [facility] [place] of Occupational Health - Occupational Stress Questionnaire Feeling of Stress : Not at all Housing Stability: Low Risk (06/21/2024) Received from [facility] Housing Stability Vital Sign Unable to Pay for Housing in the Last Year: No Number of Times Moved in the Last Year: 0 Homeless in the Last Year: No Cosigned by Mohsen Sarabia MD at 03/16/2025 10:33 AM EDT [facility] Work Phone: 03-17-2025 History and physical note INTERVAL HISTORY AND PHYSICAL Patient Name: Tristin Powell Admit Date: [id number] MR #: [id number] : 1940 The H&P has been reviewed [...] (2018, Monty), left TMA who presented to [facility] on 03/14/2025 with worsening RLE pain and [...] Beena Barraza MD General Surgery Resident, PGY-2 [facility] Please contact surgical director international pony roll finisher 5PM-6AM and weekends - #[phone] VTS Pager - #[phone] Admitted with these risk variables:None. Please see [...] (HCC) Claudication COPD (chronic obstructive pulmonary disease) ([facility]) Coronary artery disease Herpes zoster Hyperlipidemia Hypertension PAD (peripheral artery disease) ([facility]) 01/21/2022 Posterior tibial tendinitis of right leg 11/07/2022 Prostate cancer ([facility]) Vascular disease Past Surgical History: Procedure Laterality Date 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/08/2018 Procedure: LEFT MIDFOOT AMPUTATION; Surgeon: Flynn Mann DPM; Location: [facility] OR; Service: Podiatry ANKLE SURGERY Left BYPASS PERONEAL FEMORAL Right 09/07/2018 Procedure: BYPASS PERONEAL FEMORAL, RIGHT SAPHENOUS VEIN HARVEST, COMPLETION ANGIOGRAM; Surgeon: Mohsen Sarabia MD; Location: [facility]; Service: Cardiovascular CARDIAC CATHETERIZATION Left 09/05/2018 Procedure: Angio Lower Extremity; Surgeon: Ben Hahn MD; Location: [facility]; Service: Cardiovascular CARDIAC SURGERY 2017 triple bypass EGD N/A 10/10/2018 Procedure: ESOPHAGOGASTRODUODENOSCOPY; Surgeon: Ben Jensen MD; Location: [facility]; Service: Gastroenterology EYE SURGERY Right 2015 [...] Resource Strain: Low Risk (06/21/2024) Received from [facility] Overall Financial Resource Strain (CARDIA) Difficulty of Paying Living Expenses: Not hard at all Food Insecurity: No Food Insecurity (06/21/2024) Received from [facility] Hunger Vital Sign Worried About Running Out of Food in the Last Year: Never true Ran Out of Food in the Last Year: Never true Transportation Needs: No Transportation Needs (06/21/2024) Received from [facility] PRAPARE - Transportation Lack of Transportation (Medical): No Lack of Transportation (Non-Medical): No Physical Activity: Insufficiently Active (06/21/2024) Received from [facility] Exercise Vital Sign Days of Exercise per Week: 7 days Minutes of Exercise per Session: 10 min Stress: No Stress Concern Present (06/21/2024) Received from [facility] [place] of [employer]ational Health - Occupational Stress Questionnaire Feeling of Stress : Not at all Housing Stability: Low Risk (06/21/2024) Received from [facility] Housing Stability Vital Sign Unable to Pay for Housing in the Last Year: No Number of Times Moved in the Last Year: 0 Homeless in the Last Year: No Cosigned by Mohsen Sarabia MD at 03/16/2025 10:33 AM EDT [facility] History and Physical Note 03/14/25 Tristin Powell 1940 [id number] Assessment/Plan: Tristin Powell is a 85 y.o. male with a history of Peripheral Artery Disease s/p Bypass, Afib (Xarelto), Diastolic Heart Failure, Coronary Artery Disease s/p CABG, Hypertension, CKD III, COPD, Prostate Cancer, and Insomnia. Patient had outpatient angiogram 03/12/25 with balloon angioplasty. He presented to [facility] ED on 03/14/2025 from Vascular Surgery clinic with intractable right foot pain. In ED: right YAMILE 0.5; 50-99% stenosis in right mid superficial femoral artery; WBC 3.5. Course prolonged due to need for angiogram and Xarelto washout. Peripheral Artery Disease: Followed by Dr. Beaver ([facility] Vascular Surgery) and Dr. Sarabia (Vascular Surgery) [...] additional for acute pain. CAD: Followed by [facility] Cardiology s/p 3 vessel coronary artery bypass grafting in 2017 and 7 stents. Chronic Diastolic Heart Failure: TTE 04/2024: LVEF 55% grade 1 diastolic dysfunction, moderate aortic regurgitation, moderate mitral regurgitation, mild tricuspid regurgitation. Appeared euvolemic on admission. Continued home losartan and lasix every other day. Paroxysmal Afib: [id number] of 5. Xarelto as above (no indication [...] lovenox. 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 Barraza (Vascular Surgery) - likely angiogram on Monday; no surgical intervention. ROS: 10 systems were reviewed and negative, except as noted above. Past Medical, Surgical, Social, Family History: Past Medical History: Diagnosis Date Arthritis Avascular necrosis of bone of hip ([facility]) Claudication COPD (chronic obstructive pulmonary disease) ([facility]) Coronary artery disease Herpes zoster Hyperlipidemia Hypertension PAD (peripheral artery disease) ([facility]) 01/21/2022 Posterior tibial tendinitis of right leg 11/07/2022 Prostate cancer ([facility]) Vascular disease Past Surgical History: Procedure Laterality Date 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/08/2018 Procedure: LEFT MIDFOOT AMPUTATION; Surgeon: Flynn Mann DPM; Location: [facility] OR; Service: Podiatry ANKLE SURGERY Left BYPASS PERONEAL FEMORAL Right 09/07/2018 Procedure: BYPASS PERONEAL FEMORAL, RIGHT SAPHENOUS VEIN HARVEST, COMPLETION ANGIOGRAM; Surgeon: Mohsen Sarabia MD; Location: [facility]; Service: Cardiovascular CARDIAC CATHETERIZATION Left 09/05/2018 Procedure: Angio Lower Extremity; Surgeon: Ben Hahn MD; Location: [facility]; Service: Cardiovascular CARDIAC SURGERY 2017 triple bypass EGD N/A 10/10/2018 Procedure: ESOPHAGOGASTRODUODENOSCOPY; Surgeon: Ben Jensen MD; Location: [facility] End[facility]; Service: Gastroenterology EYE SURGERY Right 2015 [...] not hesitate to contact me via the [facility] Directory if any error has made critical portions of the note difficult to interpret. [1] Social History Socioeconomic History Marital status: Tobacco Use Smoking status: Never Smokeless tobacco: Never Vaping Use Vaping status: Never Used Substance and Sexual Activity Alcohol use: Not Currently Drug use: Never Sexual activity: Not Currently Social Drivers of Health Financial Resource Strain: Low Risk (06/21/2024) Received from [facility] Overall Financial Resource Strain (CARDIA) Difficulty of Paying Living Expenses: Not hard at all Food Insecurity: No Food Insecurity (06/21/2024) Received from [facility] Hunger Vital Sign Worried About Running Out of Food in the Last Year: Never true Ran Out of Food in the Last Year: Never true Transportation Needs: No Transportation Needs (06/21/2024) Received from [facility] PRAPARE - Transportation Lack of Transportation (Medical): No Lack of Transportation (Non-Medical): No Physical Activity: Insufficiently Active (06/21/2024) Received from [facility] Exercise Vital Sign Days of Exercise per Week: 7 days Minutes of Exercise per Session: 10 min Stress: No Stress Concern Present (06/21/2024) Received from [facility] [place] of [employer]ational Health - Occupational Stress Questionnaire Feeling of Stress : Not at all Housing Stability: Low Risk (06/21/2024) Received from [facility] Housing Stability Vital Sign Unable to Pay for Housing in the Last Year: No Number of Times Moved in the Last Year: 0 Homeless in the Last Year: No documented in this encounter [facility] 03-17-2025 Progress note Formatting of t his [...] available as needed for any cardiac issues. [facility] 03-17-2025 Note [facility] Inpatient Pro lucy Note 03/17/2025 Tristin Powell 1940 [id number] Assessment/Plan: Tristin Powell is a 85 y.o. male with a history of Peripheral Artery Disease s/p Bypass, Afib (Xarelto), Diastolic Heart Failure, Coronary Artery Disease s/p CABG, recent balloon angioplasty 03/12/2025,. presented to [facility] ED on 03/14/2025 from Vascular Surgery clinic with intractable right foot pain. Found to have critical right LE ischemia Critical right lower limb ischemia: History of PAD. Follows Dr. Beaver ([facility] Vascular Surgery) and Dr. Sarabia (Vascular Surgery) [...] dose. IV Dilaudid added. 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 Moving well with [...] Oral After evening (more content not included)... [facility] 03-17-2025 Note Formatting of this n ote might be different from the original. PHYSICAL THERAPY VISIT VARIANCE NOTE Attempted to see patient at this time, but unable secondary to: Awaiting Medical Clearance (comment) (scheduled for OR today). Will follow up as appropriate. [facility] 03-17-2025 Note Formatting of this n ote might be different from the original. OCCUPATIONAL THERAPY VISIT VARIANCE NOTE Attempted to see patient at this time, but unable secondary to: Awaiting Medical Clearance (Pending OR today). Will follow up as appropriate. [facility] 03-16-2025 Note VASCULAR SURGERY PRO LUCY NOTE [...] (2018, Monty), left TMA who presented to [facility] on 03/14/2025 with worsening RLE pain and [...] Beena Barraza MD General Surgery Resident, PGY-2 [facility] Please contact surgical director international pony roll finisher 5PM-6AM and weekends - #[phone] VTS Pager - #[phone] Subjective NAEO. Is ready for surgery tomorrow, [...] AUTHENTICATED BY BEENA BARRAZA ON 03/16/2025 11:03:23 [facility] 03-16-2025 Note Endovascular team no te: [...] and rubor. He had undergone angiography in [place], with chronic occlusion of an aneurysm/ectatic right [...] AUTHENTICATED BY MARY MAST, ON 03/16/2025 10:52:42 [facility] 03-16-2025 Note [facility] Inpatient Pro lucy Note 03/16/2025 Tristin Powell 1940 [id number] Assessment/Plan: Tristin Powell is a 85 y.o. male with a history of Peripheral Artery Disease s/p Bypass, Afib (Xarelto), Diastolic Heart Failure, Coronary Artery Disease s/p CABG, Hypertension, CKD III, COPD, Prostate Cancer, and Insomnia. Patient had outpatient angiogram 03/12/25 with balloon angioplasty. He presented to [facility] ED on 03/14/2025 from Vascular Surgery clinic with intractable right foot pain. In ED: right YAMILE 0.5; 50-99% stenosis in right mid superficial femoral artery; WBC 3.5. Course prolonged due to need for angiogram and Xarelto washout. Peripheral Artery Disease: Followed by Dr. Beaver ([facility] Vascular Surgery) and Dr. Sarabia (Vascular Surgery) [...] additional for acute pain. 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 Moving well with [...] 159 -- 144* (more content not included)... [facility] 03-15-2025 Progress note Formatting of t [...] Verified by note author and KULDEEP Jean. [facility] 03-15-2025 Consult note Associated Order (s): IP CONSULT TO CARE MANAGEMENT Care Management Consult Note Date: 03/15/2025 Time: 12:32 PM Patient Name: Tristin Powell Date of : 1940 Reason for Consult: Discharge Plan: D/C Disposition: Home Health Care Services Related to Current Admission?: Yes Plan A: Home Health Care Services Plan B: Home Discharging Transportation Plan: Transportation Type: Auto Discharge Plan Status: BOW MAKER MACHINE TENDER consulted for discharge needs. PT recommending therapy 2-3 days per week. OT pending. BOW MAKER MACHINE TENDER met with pt at bedside to discuss HHC level of care. Pt agreeable HHC. Pt with no [preference of agency. Pt's son will be primary caregiver upon discharge and will transport pt home when medically ready. BOW MAKER MACHINE TENDER confirmed pt demographics including address on file, [...] impact how we deliver your care?: No [facility] 03-15-2025 Note [facility] Inpatient Pro lucy Note 03/15/2025 Tristin Powell 1940 [id number] Assessment/Plan: Tristin Powell is a 85 y.o. male with a history of Peripheral Artery Disease s/p Bypass, Afib (Xarelto), Diastolic Heart Failure, Coronary Artery Disease s/p CABG, Hypertension, CKD III, COPD, Prostate Cancer, and Insomnia. Patient had outpatient angiogram 03/12/25 with balloon angioplasty. He presented to [facility] ED on 03/14/2025 from Vascular Surgery clinic with intractable right foot pain. In ED: right YAMILE 0.5; 50-99% stenosis in right mid superficial femoral artery; WBC 3.5. Course prolonged due to need for angiogram and Xarelto washout. Peripheral Artery Disease: Followed by Dr. Beaver ([facility] Vascular Surgery) and Dr. Sarabia (Vascular Surgery) [...] additional for acute pain. 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 Moving well with [...] g/dL 11.7* 13.2* (more content not included)... [facility] 03-15-2025 Consult note Formatting of th is note is different from the original. Physical Therapy PHYSICAL THERAPY EVALUATION and TREATMENT NOTE PHYSICAL THERAPY EVALUATION Skilled Therapy Needs After Discharge Anticipate Resolution of Current Assessment Limitations Including: Mechanical Barriers, Pain Are obstetrics/gynecology nurse Therapy Services Needed After Discharge: Yes Intensity of obstetrics/gynecology nurse Therapy: 2-3 days per week Anticipated Duration of obstetrics/gynecology nurse Therapy: Duration 10 - 30 days PT [...] Standing Balance - Static: Contact guard assist Pump House Operator - Standing Static: wheeled walker Standing Balance - Dynamic: Contact guard assist Pump House Operator - Standing Dynamic: same hand rug braider used for static standing tasks Bed Mobility Rolling: Supervision Supine to Sit: Supervision Sit to Supine: (patient sitting EOB) Pump House Operator: bedrails Transfers Sit to Stand: Contact guard assist Pump House Operator: wheeled walker Gait/Locomotion Gait Assistance: Contact guard [...] walker.) Prior Level of Function Level of [place] - Transfers/Ambulation/Mobility: Independent with community ambulation, Independent with household ambulation, Independent with functional transfers Level of [place] - ADLs: Independent Level of [place] - Homemaking: Independent Driving: Patient drives Vocational: [...] Arthritis Avascular necrosis of bone of hip ([facility]) Claudication COPD (chronic obstructive pulmonary disease) ([facility]) Coronary artery disease Herpes zoster Hyperlipidemia Hypertension PAD (peripheral artery disease) ([facility]) 01/21/2022 Posterior tibial tendinitis of right leg 11/07/2022 Prostate cancer ([facility]) Vascular disease Past Surgical History: Procedure Laterality Date 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/08/2018 Procedure: LEFT MIDFOOT AMPUTATION; Surgeon: Flynn Mann DPM; Location: [facility] OR; Service: Podiatry ANKLE SURGERY Left BYPASS PERONEAL FEMORAL Right 09/07/2018 Procedure: BYPASS PERONEAL FEMORAL, RIGHT SAPHENOUS VEIN HARVEST, COMPLETION ANGIOGRAM; Surgeon: Mohsen Sarabia MD; Location: [facility]; Service: Cardiovascular CARDIAC CATHETERIZATION Left 09/05/2018 Procedure: Angio Lower Extremity; Surgeon: Ben Hahn MD; Location: [facility]; Service: Cardiovascular CARDIAC SURGERY 2017 triple bypass EGD N/A 10/10/2018 Procedure: ESOPHAGOGASTRODUODENOSCOPY; Surgeon: Ben Jensen MD; Location: [facility] End[facility]; Service: Gastroenterology EYE SURGERY Right 2015 [...] hospital or completion of Physical Therapy Plan. [facility] 03-15-2025 Note Peripheral Vascular Cardiology Inpatient Follow-up Heart & Vascular [facility] Physician Group 03/15/2025 Mirna Fenton, KAMARI [facility] Patient: Tristin Powell Date of : 1940 (85 y.o.) PCP: Flash Lovelace MD Assessment/Plan: Carotid stenosis, asymptomatic, bilateral Assessment & Plan Asymptomatic. No hx of CVA Non-invasive Studies: Carotid Duplex (04/2024): Left ICA with mild <50% stenosis of heterogenous plaque. Right ICA with moderate 50-69% stenosis of heterogenous plaque Coronary artery disease involving coronary bypass graft of [place] heart without angina pectoris Assessment & Plan [...] Recently underwent RLE angio on 03/12/25 via [facility] in [place] Non-invasive Studies: RLE arterial duplex (03/14/25): 50-99% [...] RLE angiograms dated 03/12/25 and 10/12/23 from [facility]. Plan for RLE angio +/- intervention 03/17/25, with Dr. Mast Continue asa and Plavix therapies We will continue to monitor over the weekend * PAD (peripheral artery disease) ([facility]) Assessment & Plan Longstanding, significant atherosclerotic disease with history of multiple endovascular and surgical interventions as outlined in the body of this note, please reference Plan: Continue ASA and statin therapies as prescribed. Subjective No acute events noted overnight. He is resting in bed comfortably. His exam remains stable. Repeat EKG Final Result by Interface, Lab Results In [facility] (03/15/2025 0701) Echocardiogram complete w contrast Final [...] Q4H While a (more content not included)... [facility] 03-14-2025 Emergency department Note Pt placed on 2L NC now [facility] 03-14-2025 Emergency department Note Pt placed on 2L NC now [facility] to write admission orders [id number] ED PROVIDER NOTE [facility] EMERGENCY DEPARTMENT Patient Name: Tristin Powell Age: [...] Course as of 03/14/25 1327 MonMar 14, [id number] Vascular surgery recommended PV cardiology consultation- I spoke with them in consult. They will see patient. [EK] ED Course User Index [EK] Elaine Macdonald MD [facility] Data: I saw and evaluated the patient. [...] 113.4 kg (250 lb) - Refer to [facility] section above for additional physical exam data. [...] Arthritis Avascular necrosis of bone of hip ([facility]) Claudication COPD (chronic obstructive pulmonary disease) ([facility]) Coronary artery disease Herpes zoster Hyperlipidemia Hypertension PAD (peripheral artery disease) ([facility]) 01/21/2022 Posterior tibial tendinitis of right leg 11/07/2022 Prostate cancer ([facility]) Vascular disease Past Surgical History: Procedure Laterality Date 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/08/2018 Procedure: LEFT MIDFOOT AMPUTATION; Surgeon: Flynn Mann DPM; Location: [facility] OR; Service: Podiatry ANKLE SURGERY Left BYPASS PERONEAL FEMORAL Right 09/07/2018 Procedure: BYPASS PERONEAL FEMORAL, RIGHT SAPHENOUS VEIN HARVEST, COMPLETION ANGIOGRAM; Surgeon: Mohsen Sarabia MD; Location: [facility]; Service: Cardiovascular CARDIAC CATHETERIZATION Left 09/05/2018 Procedure: Angio Lower Extremity; Surgeon: Ben Hahn MD; Location: [facility]; Service: Cardiovascular CARDIAC SURGERY 2017 triple bypass EGD N/A 10/10/2018 Procedure: ESOPHAGOGASTRODUODENOSCOPY; Surgeon: Ben Jensen MD; Location: [facility] End[facility]; Service: Gastroenterology EYE SURGERY Right 2015 [...] (two) times a day /2 tab . CALMOSEPTINE 0.44-20.6 % OINT FLUTICASONE [...] correspondence this note was partially generated by [employer] voice recognition software and is inherently subject [...] Resource Strain: Low Risk (06/21/2024) Received from [facility] Overall Financial Resource Strain (CARDIA) Difficulty of Paying Living Expenses: Not hard at all Food Insecurity: No Food Insecurity (06/21/2024) Received from [facility] Hunger Vital Sign Worried About Running Out of Food in the Last Year: Never true Ran Out of Food in the Last Year: Never true Transportation Needs: No Transportation Needs (06/21/2024) Received from [facility] PRAPARE - Transportation Lack of Transportation (Medical): No Lack of Transportation (Non-Medical): No Physical Activity: Insufficiently Active (06/21/2024) Received from [facility] Exercise Vital Sign Days of Exercise per Week: 7 days Minutes of Exercise per Session: 10 min Stress: No Stress Concern Present (06/21/2024) Received from [facility] [place] of Occupational Health - Occupational Stress Questionnaire Feeling of Stress : Not at all Housing Stability: Low Risk (06/21/2024) Received from [facility] Housing Stability Vital Sign Unable to Pay [...] RLE. Please see transfer note below: Ken Johnson, KAMARI Nurse Practitioner Specialty: Cardiothoracic Surgery Progress Notes Sign when Signing Visit Encounter Date: 03/14/2025 Creation Time: 03/14/2025 7:56 AM Sign when Signing Visit Expand All Collapse All Patient Name: Tristin Powell MR #: [id number] Subjective: office nurse received call from daughter who expressed concern about patient losing his foot- he is in dire pain and his toes on his right foot are turning purple. Dr. Sarabia requested US Duplex Arterial RLE and ABIs, and here for office visit today documented in this encounter [facility] 03-14-2025 Progress note Formatting of t his note might be different from the original. 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 Mast for a RLE angio +/- intervention. Orders placed. Consent signed and given to laborer fryer farm. ASA and clopidogrel initiated. Again, no heparin gtt required unless needed in the setting of hx of paroxysmal a.fib (historically on Xarelto; however, has been held over the past week 2/2 RLE angio at [facility] as performed on 03/12/25). Additionally, please [...] grossly insensate from toes to the ankle. [facility] 03-14-2025 Progress note Formatting of t his note might be different from the original. This nurse was able to get RLE angiogram from March 12, 2025 from [facility] sent electronically. This was sent to Juana Escobar NP. She was able to open and view. Images sent to appropriate staff per Juana Escobar CNP. Called and notified the patient's daughter that she does not have to get the disc from [place] and bring to [facility]. [facility] 03-14-2025 Evaluation + Plan note Associated Problem(s): Carotid stenosis, asymptomatic, bilateral Asymptomatic. No hx of CVA Non-invasive Studies: Carotid Duplex (04/2024): Left ICA with mild <50% stenosis of heterogenous plaque. Right ICA with moderate 50-69% stenosis of heterogenous plaque [facility] 03-14-2025 Evaluation + Plan note Associated Problem(s): Coronary artery disease involving coronary bypass graft of [place] heart without angina pectoris S/p 3v CABG in 2017 Asymptomatic [facility] 03-14-2025 Evaluation + Plan note Associated Problem(s): Critical lower limb ischemia (HCC) Presents from Dr. 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 (uses a LLE ankle/foot prosthesis to help with ambulation) Recently underwent RLE angio on 03/12/25 via [facility] in [place] Non-invasive Studies: RLE arterial duplex (03/14/25): 50-99% [...] will continue to monitor over the weekend [facility] 03-14-2025 Evaluation + Plan note Associated Problem(s): PAD (peripheral artery disease) (HCC) Longstanding, significant atherosclerotic disease with history of multiple endovascular and surgical interventions as outlined in the body of this note, please reference Plan: Continue ASA and statin therapies as prescribed. [facility] 03-14-2025 Consult note Associated Order (s): IP CONSULT TO CARDIOLOGY - PERIPHERAL VASC DISEASE Images from the original note were not included. Peripheral Vascular Cardiology Inpatient Consult Heart & Vascular [facility] 03/14/2025 Demetrice Escobar CNP [facility] [place] [address] Patient: Tristin Powell Date of : 1940 [...] Recently underwent RLE angio on 03/12/25 via [facility] in [place] Non-invasive Studies: RLE arterial duplex (03/14/25): 50-99% [...] RLE angiograms dated 03/12/25 and 10/12/23 from [facility]. Will review non-invasive studies as obtained earlier today as well as [facility] RLE angiograms with PV attending. Final [...] transmetatarsal amputation who presented to an outpatient [facility] Admission requested by Dr. Long, [facility], based on outpatient visit conducted earlier today in view of complaints of excruciating right foot pain (particularly right hallux) and concerns for discoloration and digital ischemia. Pain NOT relieved with opioids. Per ED MD, no surgical options, PV consult recommended by [facility] for consideration of LE angio. By chart review, recently underwent formal LE angio on 03/12/25 via [facility]. Follows with Dr. Carvalho, cardiology, at [facility]. Last OV 11/2024. Son is present [...] was drawn out. Relevant Vascular History: 06/2024: [facility] demonstrating stable coronary artery disease. Patent [...] SVG to PDA) via [facility] 10/2007: C with MARIA ESTHER to LAD and LCx Objective Imaging: I independently reviewed the non-invasive vascular studies and agree with the interpretation(s) ECG 12 Lead Final Result by Interface, Lab Results In [place] [facility] (11/07/2022 1139) Echocardiogram complete w contrast [...] Arthritis Avascular necrosis of bone of hip ([facility]) Claudication COPD (chronic obstructive pulmonary disease) ([facility]) Coronary artery disease Herpes zoster Hyperlipidemia Hypertension PAD (peripheral artery disease) ([facility]) 01/21/2022 Posterior tibial tendinitis of right leg 11/07/2022 Prostate cancer ([facility]) Vascular disease Past Surgical History: Procedure Laterality Date 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/08/2018 Procedure: LEFT MIDFOOT AMPUTATION; Surgeon: Flynn Mann DPM; Location: [facility] OR; Service: Podiatry ANKLE SURGERY Left BYPASS PERONEAL FEMORAL Right 09/07/2018 Procedure: BYPASS PERONEAL FEMORAL, RIGHT SAPHENOUS VEIN HARVEST, COMPLETION ANGIOGRAM; Surgeon: Mohsen Sarabia MD; Location: [facility]; Service: Cardiovascular CARDIAC CATHETERIZATION Left 09/05/2018 Procedure: Angio Lower Extremity; Surgeon: Ben Hahn MD; Location: [facility]; Service: Cardiovascular CARDIAC SURGERY 2017 triple bypass EGD N/A 10/10/2018 Procedure: ESOPHAGOGASTRODUODENOSCOPY; Surgeon: Ben Jensen MD; Location: [facility]; Service: Gastroenterology EYE SURGERY Right 2015 [...] to contact me, my mobile number is [phone]. Respectfully, Demetrice Martinez APRN [facility] Heart and Vascular Physicians [1] Social History [...] He underwent angiography 2 days ago in [place] where he was found to have progressive [...] Arthritis Avascular necrosis of bone of hip ([facility]) Claudication COPD (chronic obstructive pulmonary disease) ([facility]) Coronary artery disease Herpes zoster Hyperlipidemia Hypertension PAD (peripheral artery disease) ([facility]) 01/21/2022 Posterior tibial tendinitis of right leg 11/07/2022 Prostate cancer ([facility]) Vascular disease Allergies: Doxycycline and Gabapentin Current [...] vascular surgery colleagues I personally performed a huld-ky-farv diagnostic evaluation on this patient on the [...] injection 0.1 mg 0.1 mg Intravenous PRN GrandinMuna denise MD And naloxone (NARCAN) injection 0.4 mg 0.4 mg Intravenous PRN GrandinMuna denise MD ondansetron (ZOFRAN) injection 4 mg 4 mg Intravenous Q6H PRN GrandinMuna perez MD oxyCODONE-acetaminophen (PERCOCET) 5-325 mg per tablet [...] mL vaccine urea (CARMOL) 40 % Crea [facility] 03-14-2025 History and physical note [facility] History and Physical Note 03/14/25 Tristin Powell 1940 [id number] Assessment/Plan: Tristin Powell is a 85 y.o. male with a history of Peripheral Artery Disease s/p Bypass, Afib (Xarelto), Diastolic Heart Failure, Coronary Artery Disease s/p CABG, Hypertension, CKD III, COPD, Prostate Cancer, and Insomnia. Patient had outpatient angiogram 03/12/25 with balloon angioplasty. He presented to [facility] ED on 03/14/2025 from Vascular Surgery clinic with intractable right foot pain. In ED: right YAMILE 0.5; 50-99% stenosis in right mid superficial femoral artery; WBC 3.5. Course prolonged due to need for angiogram and Xarelto washout. Peripheral Artery Disease: Followed by Dr. Beaver ([facility] Vascular Surgery) and Dr. Sarabia (Vascular Surgery) [...] additional for acute pain. CAD: Followed by [facility] Cardiology s/p 3 vessel coronary artery bypass grafting in 2017 and 7 stents. Chronic Diastolic Heart Failure: TTE 04/2024: LVEF 55% grade 1 diastolic dysfunction, moderate aortic regurgitation, moderate mitral regurgitation, mild tricuspid regurgitation. Appeared euvolemic on admission. Continued home losartan and lasix every other day. Paroxysmal Afib: [id number] of 5. Xarelto as above (no indication [...] lovenox. 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 Barraza (Vascular Surgery) - likely angiogram on Monday; no surgical intervention. ROS: 10 systems were reviewed and negative, except as noted above. Past Medical, Surgical, Social, Family History: Past Medical History: Diagnosis Date Arthritis Avascular necrosis of bone of hip ([facility]) Claudication COPD (chronic obstructive pulmonary disease) ([facility]) Coronary artery disease Herpes zoster Hyperlipidemia Hypertension PAD (peripheral artery disease) ([facility]) 01/21/2022 Posterior tibial tendinitis of right leg 11/07/2022 Prostate cancer ([facility]) Vascular disease Past Surgical History: Procedure Laterality Date 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/08/2018 Procedure: LEFT MIDFOOT AMPUTATION; Surgeon: Flynn Mann DPM; Location: [facility] OR; Service: Podiatry ANKLE SURGERY Left BYPASS PERONEAL FEMORAL Right 09/07/2018 Procedure: BYPASS PERONEAL FEMORAL, RIGHT SAPHENOUS VEIN HARVEST, COMPLETION ANGIOGRAM; Surgeon: Mohsen Sarabia MD; Location: [facility]; Service: Cardiovascular CARDIAC CATHETERIZATION Left 09/05/2018 Procedure: Angio Lower Extremity; Surgeon: Ben Hahn MD; Location: [facility]; Service: Cardiovascular CARDIAC SURGERY 2017 triple bypass EGD N/A 10/10/2018 Procedure: ESOPHAGOGASTRODUODENOSCOPY; Surgeon: Ben Jensen MD; Location: [facility] End[facility]; Service: Gastroenterology EYE SURGERY Right 2015 [...] not hesitate to contact me via the [facility] Directory if any error has made critical portions of the note difficult to interpret. [1] Social History Socioeconomic History Marital status: Tobacco Use Smoking status: Never Smokeless tobacco: Never Vaping Use Vaping status: Never Used Substance and Sexual Activity Alcohol use: Not Currently Drug use: Never Sexual activity: Not Currently Social Drivers of Health Financial Resource Strain: Low Risk (06/21/2024) Received from [facility] Overall Financial Resource Strain (CARDIA) Difficulty of Paying Living Expenses: Not hard at all Food Insecurity: No Food Insecurity (06/21/2024) Received from [facility] Hunger Vital Sign Worried About Running Out of Food in the Last Year: Never true Ran Out of Food in the Last Year: Never true Transportation Needs: No Transportation Needs (06/21/2024) Received from [facility] PRAPARE - Transportation Lack of Transportation (Medical): No Lack of Transportation (Non-Medical): No Physical Activity: Insufficiently Active (06/21/2024) Received from [facility] Exercise Vital Sign Days of Exercise per Week: 7 days Minutes of Exercise per Session: 10 min Stress: No Stress Concern Present (06/21/2024) Received from [facility] [place] of Occupational Health - Occupational Stress Questionnaire Feeling of Stress : Not at all Housing Stability: Low Risk (06/21/2024) Received from [facility] Housing Stability Vital Sign Unable to Pay for Housing in the Last Year: No Number of Times Moved in the Last Year: 0 Homeless in the Last Year: No [facility] 03-14-2025 Note [facility] History and P hysical Note 03/14/25 Tristin Hortensia Sherry 1940 [id number] Assessment/Plan: Tristin Powell is a 85 y.o. male with a history of Peripheral Artery Disease s/p Bypass, Afib (Xarelto), Diastolic Heart Failure, Coronary Artery Disease s/p CABG, Hypertension, CKD III, COPD, Prostate Cancer, and Insomnia. Patient had outpatient angiogram 03/12/25 with balloon angioplasty. He presented to [facility] ED on 03/14/2025 from Vascular Surgery clinic with intractable right foot pain. In ED: right YAMILE 0.5; 50-99% stenosis in right mid superficial femoral artery; WBC 3.5. Course prolonged due to need for angiogram and Xarelto washout. Peripheral Artery Disease: Followed by Dr. Beaver ([facility] Vascular Surgery) and Dr. Sarabia (Vascular Surgery) [...] additional for acute pain. CAD: Followed by [facility] Cardiology s/p 3 vessel coronary artery bypass grafting in 2017 and 7 stents. Chronic Diastolic Heart Failure: TTE 04/2024: LVEF 55% grade 1 diastolic dysfunction, moderate aortic regurgitation, moderate mitral regurgitation, mild tricuspid regurgitation. Appeared euvolemic on admission. Continued home losartan and lasix every other day. Paroxysmal Afib: [id number] of 5. Xarelto as above (no indication [...] lovenox. 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 In last 1-2 months getting more [...] personally discussed with Juana (Peripheral Vascular Cardiology TRANSPORTATION CONSULTANT) and Dr. Barraza (Vascular Surgery) - likely angiogram on Monday; no surgical intervention. ROS: 10 systems were reviewed and negative, (more content not included)... [facility] 03-14-2025 Emergency department Note MEDONE to write admission orders [id number] [facility] 03-14-2025 Physician Emergency department Note ED PROVIDER NOTE [facility] EMERGENCY DEPARTMENT Patient Name: Tristin Powell Age: [...] Course User Index [EK] Elaine Macdonald MD [facility] Data: I saw and evaluated the patient. [...] 113.4 kg (250 lb) - Refer to [facility] section above for additional physical exam data. [...] (HCC) Claudication COPD (chronic obstructive pulmonary disease) ([facility]) Coronary artery disease Herpes zoster Hyperlipidemia Hypertension PAD (peripheral artery disease) ([facility]) 01/21/2022 Posterior tibial tendinitis of right leg 11/07/2022 Prostate cancer (HCC) Vascular disease Past Surgical History: Procedure Laterality Date 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/08/2018 Procedure: LEFT MIDFOOT AMPUTATION; Surgeon: Flynn Mann DPM; Location: [facility] OR; Service: Podiatry ANKLE SURGERY Left BYPASS PERONEAL FEMORAL Right 09/07/2018 Procedure: BYPASS PERONEAL FEMORAL, RIGHT SAPHENOUS VEIN HARVEST, COMPLETION ANGIOGRAM; Surgeon: Mohsen Sarabia MD; Location: [facility]; Service: Cardiovascular CARDIAC CATHETERIZATION Left 09/05/2018 Procedure: Angio Lower Extremity; Surgeon: Ben Hahn MD; Location: [facility]; Service: Cardiovascular CARDIAC SURGERY 2017 triple bypass EGD N/A 10/10/2018 Procedure: ESOPHAGOGASTRODUODENOSCOPY; Surgeon: Ben Jensen MD; Location: [facility]; Service: Gastroenterology EYE SURGERY Right 2015 [...] (two) times a day /2 tab . CALMOSEPTINE 0.44-20.6 % OINT FLUTICASONE [...] correspondence this note was partially generated by [employer] voice recognition software and is inherently subject to errors including those of syntax and sound-alike substitutions which may escape proofreading. In such instances, original meaning may be extrapolated by contextual derivation. Elaine Macdonald MD 03/14/25 [id number] [1] Social History Socioeconomic History Marital status: Tobacco Use Smoking status: Never Smokeless tobacco: Never Vaping Use Vaping status: Never Used Substance and Sexual Activity Alcohol use: Not Currently Drug use: Never Sexual activity: Not Currently Social Drivers of Health Financial Resource Strain: Low Risk (06/21/2024) Received from [facility] Overall Financial Resource Strain (CARDIA) Difficulty of Paying Living Expenses: Not hard at all Food Insecurity: No Food Insecurity (06/21/2024) Received from [facility] Hunger Vital Sign Worried About Running Out of Food in the Last Year: Never true Ran Out of Food in the Last Year: Never true Transportation Needs: No Transportation Needs (06/21/2024) Received from [facility] PRAPARE - Transportation Lack of Transportation (Medical): No Lack of Transportation (Non-Medical): No Physical Activity: Insufficiently Active (06/21/2024) Received from [facility] Exercise Vital Sign Days of Exercise per Week: 7 days Minutes of Exercise per Session: 10 min Stress: No Stress Concern Present (06/21/2024) Received from [facility] [place] of Occupational Health - Occupational Stress Questionnaire Feeling of Stress : Not at all Housing Stability: Low Risk (06/21/2024) Received from [facility] Housing Stability Vital Sign Unable to Pay for Housing in the Last Year: No Number of Times Moved in the Last Year: 0 Homeless in the Last Year: No [2] Allergies Allergen Reactions Doxycycline Elevated blood pressure, GI intolerance/ nausea/vomiting Gabapentin GI Intolerance [facility] 03-14-2025 History of Present illness Narrative [facility] Medical Records Release form faxed to [phone]. Fax confirmation received. documented in this encounter [facility] 03-14-2025 Consult note Formatting of th is [...] (Jony, Walker), left TMA who presented to [facility] on 03/14/2025 with worsening RLE pain and [...] Beena Barraza MD General Surgery Resident, PGY-2 [facility] Please contact surgical director international pony roll finisher 5PM-6AM and weekends - #[phone] VTS Pager - #[phone] Admitted with these risk variables:None. Please see [...] Arthritis Avascular necrosis of bone of hip ([facility]) Claudication COPD (chronic obstructive pulmonary disease) ([facility]) Coronary artery disease Herpes zoster Hyperlipidemia Hypertension PAD (peripheral artery disease) ([facility]) 01/21/2022 Posterior tibial tendinitis of right leg 11/07/2022 Prostate cancer (HCC) Vascular disease Past Surgical History: Procedure Laterality Date 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/08/2018 Procedure: LEFT MIDFOOT AMPUTATION; Surgeon: Flynn Mann DPM; Location: [facility] OR; Service: Podiatry ANKLE SURGERY Left BYPASS PERONEAL FEMORAL Right 09/07/2018 Procedure: BYPASS PERONEAL FEMORAL, RIGHT SAPHENOUS VEIN HARVEST, COMPLETION ANGIOGRAM; Surgeon: Mohsen Sarabia MD; Location: [facility]; Service: Cardiovascular CARDIAC CATHETERIZATION Left 09/05/2018 Procedure: Angio Lower Extremity; Surgeon: Ben Hahn MD; Location: [facility]; Service: Cardiovascular CARDIAC SURGERY 2017 triple bypass EGD N/A 10/10/2018 Procedure: ESOPHAGOGASTRODUODENOSCOPY; Surgeon: Ben Jensen MD; Location: [facility]; Service: Gastroenterology EYE SURGERY Right 2015 [...] Resource Strain: Low Risk (06/21/2024) Received from [facility] Overall Financial Resource Strain (CARDIA) Difficulty of Paying Living Expenses: Not hard at all Food Insecurity: No Food Insecurity (06/21/2024) Received from [facility] Hunger Vital Sign Worried About Running Out of Food in the Last Year: Never true Ran Out of Food in the Last Year: Never true Transportation Needs: No Transportation Needs (06/21/2024) Received from [facility] PRAPARE - Transportation Lack of Transportation (Medical): No Lack of Transportation (Non-Medical): No Physical Activity: Insufficiently Active (06/21/2024) Received from [facility] Exercise Vital Sign Days of Exercise per Week: 7 days Minutes of Exercise per Session: 10 min Stress: No Stress Concern Present (06/21/2024) Received from [facility] [place] [facility] [employer] [facility] - Occupational Stress Questionnaire Feeling of Stress : Not at all Housing Stability: Low Risk (06/21/2024) Received from [facility] Housing Stability Vital Sign Unable to Pay [...] personally examined the patient and agree with resident/FRONT END JAVA DEVELOPER/PA assessment and plan with the following additional findings. Pt known to me with CLTI of the RLE with rest pain and early ischemic skin changes. Plan for R fem tib bypass on Monday for limb salvage [facility] 03-14-2025 History of Present illness Narrative Spoke with Edwina from Medical Records from [facility] V[facility] Surgery to obtain RLE Angiogram from 03/12/25. This Nurse was informed that for imaging if daughter is not POA that the patient would need to sign a release form and have the patient's sign it. She explained to this Nurse that the form will be faxed to [phone]. Edwina also informed this Nurse that they will fax the report for the RLE Angiogram once it is signed. This Nurse verbalized understanding and explained to Edwina that our office will reach out to the daughter to have her cigar tobacco processing supervisor the disc for the imaging of RLE Angiogram. Edwina verbalized understanding. All questions answered. documented in this encounter [facility] 03-14-2025 Emergency department Triage note Images from [...] All Patient Name: Tristin Powell MR #: [id number] Subjective: office nurse received call from daughter who expressed concern about patient losing his foot- he is in dire pain and his toes on his right foot are turning purple. Dr. Sarabia requested US Duplex Arterial RLE and ABIs, and here for office visit today [facility] 03-14-2025 History of Present illness Narrative Patient Name: Tristin Powell MR #: [id number] Subjective: office nurse received call from daughter [...] had a right angiogram attempted at the [facility] on Monday03/12/2025 but was told they could [...] this Will attempt to get angiogram from [facility] from 03/12/2025; may need to repeat angiogram [...] Johnson CNP 03/14/2025 documented in this encounter [facility] 03-14-2025 Note Patient Name: Tristin Powell MR #: [id number] Subjective: office nurse received call from daughter [...] had a right angiogram attempted at the [facility] on Monday03/12/2025 but was told they could [...] this Will attempt to get angiogram from [facility] from 03/12/2025; may need to repeat angiogram [...] AUTHENTICATED BY KEN JOHNSON, ON 03/14/2025 11:47:35 [facility] 03-13-2025 History of Present illness Narrative [...] a 7:45 AM arrival time in the [place] on the garden level. His ABIs will follow at 9 AM. Then his office visit with Ken Johnson CNP will be at 10 AM on the 5th floor of the [facility], [address]. Instructions provided for how to get to testing and office visit. Daughter verbalized understanding and expressed appreciation. All questions answered. documented in this encounter [facility] 03-11-2025 Evaluation note Diagnosis Onset Date Resolution Peripheral vascular disease acute March 11, 2025 11:20am [facility] Work Phone: 1(369) 738-596006-19-2025 Telephone encounter Note* Telephone Encounter - Megan Douglass - 02/13/2025 3:28 PM EDT zolpidem (Ambien) 10 MG tablet Hydrocodone 5-352 [place] [facility] [id number] Miscellaneous Notes* Telephone Encounter - Megan Douglass - 02/13/2025 3:28 PM EDT zolpidem (Ambien) 10 MG tablet Hydrocodone 5-352 [place] documented in this encounterEastern Missouri State [id number] History of Present illness Narrative* Bhaskar Wilson [...] 2009 Avascular necrosis of bone of hip ([facility] 09/04/2011 Right hip Right hip CAD (coronary artery disease) ([facility] 2013 Carotid artery disease ([facility]) Cataract 2014 Cellulitis 01/19/2022 [facility] Cellulitis LLE Colon polyps 2011 Critical lower limb ischemia ([facility]) 09/04/2018 Last Assessment & Plan: Pt s/p LLE angiogram with Dr Hahn who feels that the pt has no further endovascular options. He has consulted Dr. Sarabia for a possible tibial bypass. Pt s/p LLE critical limb ischemia Dale class 4 rest pain with distal discoloration to histoes Gangrene of left foot ([facility]) 10/04/2018 Groin hematoma 2014 RT Femoral groin Hematoma H/O myocardial perfusion scan 07/09/2019 LVEF 56% Myocardial perfusion imaging shows a defect in Apical wall Herpes zoster 09/04/2011 History of being hospitalized 12/06/2020 Strep Pneumonia, Resp. Failure - [facility] History of being hospitalized [place] [facility] 07/15/2021-07/16/2021 History of coronary angiogram [...] incomplete bowel prep Diverticulosis Dr. Rowe at [facility] COLONOSCOPY W/ POLYPECTOMY 2011 CORONARY ARTERY [...] HISTORY 04/25/[address] Hahn MA MEDICATION MANAGEMENT 11/2020 Multi resistant Strep Pneumonia, [...] No follow-ups on file. documented in this encounterEastern Missouri State [id number] Telephone encounter Note* Telephone Encounter - Megansteph Douglass - 01/02/2025 10:43 AM EDT oxyCODONE-acetaminophen (Percocet) 5-325 MG tablet [ [place] [facility] HospitalKbbncaxzrs94-57-0719 Miscellaneous Notes* Telephone Encounter - Megansteph Douglass - 01/02/2025 10:43 AM EDT oxyCODONE-acetaminophen (Percocet) 5-325 MG tablet [ [place] documented in this encounterEastern Missouri State HospitalCalqtvumfq74-67-1991 NoteUT Cardiology - [facility] Subjective Tristin Powell is a [...] artery disease involving coronary bypass graft of [place] heart without angina pectoris Coronary artery disease involving [place] coronary artery of [place] heart without angina pectoris Coronary atherosclerosis Critical [...] instent restenosis. He then underwent CABG [facility] in 2017 (CHAVEZ to diagonal, SVG [...] a yellow jacket and he went to [facility] for evaluation. He had mildly elevated [...] he feels good. Cuca (more content not included)...[facility] 11-26-2024 Telephone encounter Note* Telephone Encounter - LEONARDA Villavicencio - 11/26/2024 1:04 PM EDT OARRS reviewed, Rx sent into patient's pharmacy. Albuterol also sent. [facility] HospitalWlfbmnnutq42-44-8480 Miscellaneous Notes* Telephone Encounter - LEONARDA Villavicencio - 11/26/2024 1:04 PM EDT OARRS reviewed, Rx sent into patient's pharmacy. Albuterol also sent. * Telephone Encounter - Megan Douglass - 11/26/2024 10:31 AM EDT oxyCODONE-acetaminophen (Percocet) 5-325 MG tablet [employer] [place] documented in this encounterEastern Missouri State HospitalOjccepsijw77-73-9497 Telephone encounter Note* Telephone Encounter - Megan Douglass - 11/26/2024 10:31 AM EDT oxyCODONE-acetaminophen (Percocet) 5-325 MG tablet [employer] [place] [facility] [id number] History of Present illness Narrative* Elaine Saab [...] States this prescription needs to go to [facility] in [place], [place]. States all other prescriptions go to [facility] pharmacy. Medications reconciled with pt. Pt also needs refill on albuterol HFA 90 mcg/act inhaler. This is to be sent to [facility]. * LEONARDA Villavicencio - 11/25/2024 9:54 AM EDT Will send meds in for pt. documented in this encounterNOCox SouthJitefauwcn18-48-6728 Telephone encounter Note* Telephone Encounter - Megan Douglass - 10/21/2024 9:32 AM EST Pt scheduled [facility] [id number] Miscellaneous Notes* Telephone Encounter - Megan Douglass - 10/21/2024 9:32 AM EST Pt scheduled * Telephone Encounter - LEONARDA Villavicencio - 10/18/2024 12:38 PM EST Please help pt get set up with Dr. Lovelace for medication follow up appointment in October. OARRS reviewed, Rx sent into patient's pharmacy. documented in this encounterEastern Missouri State HospitalHlexyglcet28-46-3041 Telephone encounter Note* Telephone Encounter - LEONARDA Villavicencio - 10/18/2024 12:38 PM EST Please help pt get set up with Dr. Lovelace for medication follow up appointment in October. OARRS reviewed, Rx sent into patient's pharmacy. [facility] [id number] History of Present illness Narrative* Ludivina Garcia, RN - 09/23/2024 1:09 PM EST Spoke with Nurse from Dr. Beaver's office with [facility] and requested reports for ABIs and US Duplex Bypass Graft LLE be faxed to [phone]. Staff verbalized understanding. All questions answered. documented in this [id number] Telephone encounter Note* Telephone Encounter - LEONARDA Villavicencio - 09/13/2024 12:11 PM EST OARRS reviewed, Rx sent into patient's pharmacy. [facility] [id number] Miscellaneous Notes* Telephone Encounter - LEONARDA Villavicencio - 09/13/2024 12:11 PM EST OARRS reviewed, Rx sent into patient's pharmacy. * Telephone Encounter - Cindi Oscar - 09/12/2024 1:32 PM EST oxyCODONE-acetaminophen (Percocet) 5-325 MG tablet to sebastien dougherty documented in this encounterEastern Missouri State HospitalCqqocigyme73-29-4768 Telephone encounter Note* Telephone Encounter - Cindi Oscar - 09/12/2024 1:32 PM EST oxyCODONE-acetaminophen (Percocet) 5-325 MG tablet to sebastien dougherty [facility] HospitalXnckoqostt89-96-1752 History of Present illness Narrative* Ludivina Garcia RN - 08/20/2024 12:50 PM EST Lvm for staff at [facility] with Dr. Beaver's office to clarify if patient already completed his ABIs and US Duplex Bypass Graft LLE. Left direct number for call back. documented in this [id number] History of Present illness Narrative* Flash Lovelace [...] includes PVD. There is no history of CAD/KS orCVA. There is no history of a [...] 2009 Avascular necrosis of bone of hip ([facility] 09/04/2011 Right hip Right hip CAD (coronary artery disease) ([facility] 2013 Carotid artery disease ([facility] Cataract 2014 Cellulitis 01/19/2022 [facility] Cellulitis LLE Colon polyps 2011 Critical lower limb ischemia ([facility]) 09/04/2018 Last Assessment & Plan: Pt s/p LLE angiogram with Dr Hahn who feels that the pt has no further endovascular options. He has consulted Dr. Sarabia for a possible tibial bypass. Pt s/p LLE critical limb ischemia Deann class 4 rest pain with distal discoloration to histoes Gangrene of left foot ([facility]) 10/04/2018 Groin hematoma 2014 RT Femoral groin Hematoma H/O myocardial perfusion scan 07/09/2019 LVEF 56% Myocardial perfusion imaging shows a defect in Apical wall Herpes zoster 09/04/2011 History of being hospitalized 12/06/2020 Strep Pneumonia, Resp. Failure - [facility] History of being hospitalized [place] [facility] 07/15/2021-07/16/2021 History of coronary angiogram [...] incomplete bowel prep Diverticulosis Dr. Rowe at [facility] COLONOSCOPY W/ POLYPECTOMY 2011 CORONARY ARTERY [...] HISTORY 04/25/[address]. Hahn MA MEDICATION MANAGEMENT 11/2020 Multi resistant Strep Pneumonia, [...] Relevant Orders Influenza, high-dose seasonal, quadrivalent, PF (JGK578) (Fluzone High Dose [place] 0.7mL dose) (Completed) No follow-ups on file. documented in this encounterEastern Missouri State HospitalTngljsbrcp29-04-8537 Telephone encounter Note* Telephone Encounter - Megan Douglass - 08/06/2024 2:54 PM EST oxyCODONE-acetaminophen (Percocet) 5-325 MG tablet zolpidem (Ambien) 10 MG tablet [employer] [place] [facility] [id number] Miscellaneous Notes* Telephone Encounter - Megan Douglass - 08/06/2024 2:54 PM EST oxyCODONE-acetaminophen (Percocet) 5-325 MG tablet zolpidem (Ambien) 10 MG tablet [employer] [place] documented in this encounterEastern Missouri State HospitalAfjamvstqo57-15-3144 NoteUT Cardiology - [facility] Subjective Tristin Powell is a 84 y.o. [...] artery disease involving coronary bypass graft of [place] heart without angina pectoris Coronary artery disease involving [place] coronary artery of [place] heart without angina pectoris Coronary atherosclerosis Critical [...] instent restenosis. He then underwent CABG [facility] in 2017 (CHAVEZ to diagonal, SVG [...] a yellow jacket and he went to [facility] for evaluation. He had mildly elevated [...] joint pain, myalgias and (more content not included)...[facility]11-13-2024 Note Patient: Tristin Powell Procedure Information Date/Time: 07/10/24 3422 Procedure: Coronary angiography - PC APPROVED Location: [facility] OF STRATEGY 3 / [facility] (Cath) Providers: Eliezer Carvalho MD Clinical information reviewed: Allergies Meds Physical Exam Airway Mallampati: III TM distance: >3 FB Neck ROM: full Cardiovascular Rhythm: regular Rate: normal Dental Pulmonary Abdominal Anesthesia Plan ASA 3 (Conscious sedation) Anesthetic plan and risks discussed with patient. Use of blood products discussed with patient who. Plan discussed with attending. Additional Equipment RequestsUniversity Hospitals [facility]11-08-2024 Telephone encounter Note* Telephone Encounter - LEONARDA Villavicencio - 07/05/2024 9:35 AM EST OARRS reviewed, Rx sent into patient's pharmacy. [facility] [id number] Miscellaneous Notes* Telephone Encounter - LEONARDA Villavicencio - 07/05/2024 9:35 AM EST OARRS reviewed, Rx sent into patient's pharmacy. * Telephone Encounter - Cindi Oscar - 07/05/2024 9:18 AM EST oxyCODONE-acetaminophen (Percocet) 5-325 MG tablet to [employer] documented in this encounterEastern Missouri State HospitalElqtkbxzjb24-99-3499 Telephone encounter Note* Telephone Encounter - Cindi Oscar - 07/05/2024 9:18 AM EST oxyCODONE-acetaminophen (Percocet) 5-325 MG tablet to [employer] [facility] HospitalQzxmwxxpio63-43-3650 Telephone encounter Note* Telephone Encounter - Megan Douglass - 06/17/2024 10:04 AM EDT Patient called requesting a zpack due to a cold. He asked something to be sent into [facility] in [place]. [facility] [id number] Miscellaneous Notes* Telephone Encounter - Megan Douglass - 06/17/2024 10:04 AM EDT Patient called requesting a zpack due to a cold. He asked something to be sent into [facility] in [place]. documented in this encounterEastern Missouri State HospitalSvuhaxpgem93-57-8658 NoteUT Cardiology - [facility] Subjective Tristin Powell is a [...] artery disease involving coronary bypass graft of [place] heart without angina pectoris Coronary artery disease involving [place] coronary artery of [place] heart without angina pectoris Coronary atherosclerosis Critical [...] instent restenosis. He then underwent CABG at [facility] in 2016 (CHAVEZ to diagonal, SVG [...] stress ECHO that could be done at [facility]. He has not had this done yet as he notes his vascular surgery is on hold at the moment and they are monitoring things. 05/28/2024 Since last seen, pt presented to [facility] with c/o chest pain. He was stung by a yellow jacket. 4 hours later he developed sharp stabbing chest pains that lasted seconds. This happened again 2 hours later. He went to [facility] for further evaluation. He has had no further episodes of chest pain. Review of Systems Cardiovascular (more content not included)...[facility] 05-28-2024 NotePt is here for a follow up after being in [facility]. Pt has HLD, HNT, and CAD. Pt denies chest pain, sob, dizziness. Review of Systems Cardiovascular: Positive for claudication and leg swelling. Respiratory: Positive for wheezing. Hematologic/Lymphatic: Bruises/bleeds easily. Musculoskeletal: Positive for arthritis, back pain, joint pain, myalgias and neck pain. All other systems reviewed and are negative.[facility] 05-21-2024 History of Present illness Narrative* LEONARDA Villavicencio - 05/21/2024 1:00 PM EDT HPI Med Refill Additional comments: Oxycodone Last edited by Wendy Tubbs LPN on 05/21/2024 1:07 PM. Subjective Patient ID: Tristin Powell is a 84 y.o. male who presents for hospital follow up. Flowsheet Row Patient Outreach from 05/16/2024 in [place] with Mary MichaelISABELLA goodman Hospital Information Discharged To: Home Setting Discharge Hospital [facility] Diagnosis Chest pain, HTN, CAD, paroximal [...] went to a lung specialist down in [place] and after the repeat test was told [...] morning. [DISCONTINUED] ergocalciferol (Vitamin D-2) 1.25 MG (21966 UT) capsule Take 50,000 Units by mouth [...] 2009 Avascular necrosis of bone of hip ([facility] 09/04/2011 Right hip Right hip CAD (coronary artery disease) [place] 2013 Carotid artery disease ([facility] Cataract 2014 Cellulitis 01/19/2022 [facility] Cellulitis LLE Colon polyps 2012 Critical lower limb ischemia ([facility]) 09/04/2018 Last Assessment & Plan: Pt s/p LLE angiogram with Dr Hahn who feels that the pt has no further endovascular options. He has consulted Dr. Sarabia for a possible tibial bypass. Pt s/p LLE critical limb ischemia Dale class 4 rest pain with distal discoloration to histoes Gangrene of left foot ([facility]) 10/04/2018 Groin hematoma 2013 RT Femoral groin Hematoma H/O myocardial perfusion scan 07/09/2019 LVEF 56% Myocardial perfusion imaging shows a defect in Apical wall Herpes zoster 09/04/2011 History of being hospitalized 12/06/2020 Strep Pneumonia, Resp. Failure - [facility] History of being hospitalized [place] [facility] 07/15/2021-07/16/2021 History of coronary angiogram [...] incomplete bowel prep Diverticulosis Dr. Rowe at [facility] COLONOSCOPY W/ POLYPECTOMY 2011 CORONARY ARTERY [...] HISTORY 04/25/[address] Hahn MA MEDICATION MANAGEMENT 11/2020 Multi resistant Strep Pneumonia, [...] patient. 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CMS/HCC) The patient is seeing a medical records field technician for this condition, treatment is deferred to [...] for Appointment As Scheduled. documented in this encounterEastern Missouri State [id number] History of Present illness Narrative* LEONARDA Villavicencio [...] % ointment ergocalciferol (Vitamin D-2) 1.25 MG (19215 UT) capsule Take 50,000 Units by mouth [...] artery disease) (CMS/HCC) 2013 Carotid artery disease (CMS/HCC) Cataract 2014 Cellulitis 01/19/2022 [facility] Cellulitis LLE Colon polyps 2012 Groin hematoma 2013 RT Femoral groin Hematoma H/O myocardial perfusion scan 07/09/2019 LVEF 56% Myocardial perfusion imaging shows a defect in Apical wall History of being hospitalized 12/06/2020 Strep Pneumonia, Resp. Failure - [facility] History of being hospitalized [place] [facility] 07/15/2021-07/16/2021 History of coronary angiogram [...] incomplete bowel prep Diverticulosis Dr. Rowe at [facility] COLONOSCOPY W/ POLYPECTOMY 2011 CORONARY ARTERY [...] HISTORY 04/25/[address] LE [address] Hahn MA MEDICATION MANAGEMENT 11/2020 Multi resistant Strep Pneumonia, [...] Do you have a medical power of compliance attorney?: Yes Objective : BP 132/82 Pulse [...] suggested at this time. 8. Polymyalgia rheumatica ([facility]) This is a chronic medical condition that is stable since last assessment. No changes in treatment are suggested at this time. 9. 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 No changes in treatment are suggested at this time. 10. Chronic bronchitis, unspecified chronic bronchitis type ([facility]) This is a chronic medical condition that is stable since last assessment. No changes in treatment are suggested at this time. 11. Dyspnea on exertion The patient is seeing a medical records field technician for this condition, treatment is deferred to that specialist. Correspondence from that specialist and any available testing were reviewed during today's visit. 12. Orthopnea The patient is seeing a medical records field technician for this condition, treatment is deferred to [...] aortic aneurysm (AAA) without rupture, unspecified part ([facility]) The patient is seeing a medical records field technician for this condition, treatment is deferred to that specialist. Correspondence from that specialist and any available testing were reviewed during today's visit. 16. Aortic valve insufficiency, etiology of cardiac valve disease unspecified The patient is seeing a medical records field technician for this condition, treatment is deferred to that specialist. Correspondence from that specialist and any available testing were reviewed during today's visit. 17. Atherosclerosis of [place] coronary artery of [place] heart without angina pectoris ([facility]) The patient is seeing a medical records field technician for this condition, treatment is deferred to that specialist. Correspondence from that specialist and any available testing were reviewed during today's visit. 18. Benign essential hypertension ([facility]) Patient's blood pressure is currently well controlled. Continue with current medications and I willcontinue to monitor. 19. Stenosis of right carotid artery The patient is seeing a medical records field technician for this condition, treatment is deferred to that specialist. Correspondence from that specialist and any available testing were reviewed during today's visit. 20. Chronic heart failure with preserved ejection fraction (CMS/HCC) The patient is seeing a medical records field technician for this condition, treatment is deferred to that specialist. Correspondence from that specialist and any available testing were reviewed during today's visit. 21. Chronic ischemic heart disease (CMS/HCC) The patient is seeing a medical records field technician for this condition, treatment is deferred to that specialist. Correspondence from that specialist and any available testing were reviewed during today's visit. 22. Mitral valve insufficiency, unspecified etiology The patient is seeing a medical records field technician for this condition, treatment is deferred to that specialist. Correspondence from that specialist and any available testing were reviewed during today's visit. 23. Paroxysmal atrial fibrillation (CMS/HCC) The patient is seeing a medical records field technician for this condition, treatment is deferred to that specialist. Correspondence from that specialist and any available testing were reviewed during today's visit. 24. Preinfarction syndrome (CMS/HCC) The patient is seeing a medical records field technician for this condition, treatment is deferred to that specialist. Correspondence from that specialist and any available testing were reviewed during today's visit. 25. PVD (peripheral vascular disease) with claudication (CMS/HCC) The patient is seeing a medical records field technician for this condition, treatment is deferred to that specialist. Correspondence from that specialist and any available testing were reviewed during today's visit. 26. Thoracic aortic aneurysm without rupture, unspecified part (CMS/HCC) The patient is seeing a medical records field technician for this condition, treatment is deferred to [...] 29. 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) This is a chronic medical condition that is stable since last assessment. No changes in treatment are suggested at this time. 30. Impotence of organic origin This is a chronic medical condition that is stable since last assessment. No changes in treatment are suggested at this time. 31. Malignant neoplasm of prostate (CMS/HCC) The patient is seeing a medical records field technician for this condition, treatment is deferred to [...] time. 35. Claudication of right lower extremity (CMS/HCC) The patient is seeing a medical records field technician for this condition, treatment is deferred to [...] examination The patient is seeing a medical records field technician for this condition, treatment is deferred to that specialist. Correspondence from that specialist and any available testing were reviewed during today's visit. 43. Disorder of lipid metabolism (CMS/HCC) The patient is seeing a medical records field technician for this condition, treatment is deferred to that specialist. Correspondence from that specialist and any available testing were reviewed during today's visit. 44. Left sciatic nerve pain This is a chronic medical condition that is stable since last assessment. No changes in treatment are suggested at this time. 45. Mixed hyperlipidemia (CMS/HCC) The patient is seeing a medical records field technician for this condition, treatment is deferred to [...] 100 g; Refill: 3 48. Atherosclerosis of [place] arteries of extremities with rest pain, unspecified extremity (CMS/HCC) The patient is seeing a medical records field technician for this condition, treatment is deferred to that specialist. Correspondence from that specialist and any available testing were reviewed during today's visit. 49. Pulmonary hypertension, unspecified (CMS/HCC) The patient is seeing a medical records field technician for this condition, treatment is deferred to that specialist. Correspondence from that specialist and any available testing were reviewed during today's visit. Follow up in about 3 months (around 07/27/2024) for Medication Follow Up. Electronically signed by LEONARDA Villavicencio on April 26, 2024 documented in this encounterEastern Missouri State [id number] NotePt is here for a six month follow up. Pt has hyperlipidemia, hypertension, PAD. Pt denies sob, chest pain, palpitations Review of Systems Cardiovascular: Positive for claudication. Respiratory: Positive for wheezing. Hematologic/Lymphatic: Bruises/bleeds easily. Musculoskeletal: Positive for arthritis, back pain, joint pain, myalgias and neck pain. All other systems reviewed and are negative.[facility] 04-24-2024 NoteUT Cardiology - [facility] Subjective Tristin Powell is a [...] artery disease involving coronary bypass graft of [place] heart without angina pectoris Coronary artery disease involving [place] coronary artery of [place] heart without angina pectoris Coronary atherosclerosis Critical lower limb ischemia ([facility]/HCC) Disorder of lipid metabolism Hypertensive disorder Herpes [...] nodule S/P transmetatarsal amputation of foot, left (CMS/[facility]) Snoring Thoracic aortic aneurysm without rupture (CMS/HCC) Posterior tibial tendinitis of right leg Insomnia Lumbosacral spondylosis without myelopathy AAA (abdominal aortic aneurysm) (CMS/[facility]) Acute exacerbation of chronic obstructive pulmonary disease [...] Paroxysmal atrial fibrillation (CMS/HCC) Phantom limb pain ([facility]/HCC) Polymyalgia rheumatica ([facility]) Primary osteoarthritis of right hip Routine general medical examination at health care facility Seasonal allergic rhinitis Sinusitis Stage 3a chronic kidney disease ([facility]/HCC) Acute cystitis without hematuria Benign essential hypertension Other thrombophilia ([facility]/HCC) Family History Problem Relation Name Age of [...] instent restenosis. He then [facility] CABG [facility] in 2017 (CHAVEZ to diagonal, SVG [...] stress ECHO that could be done at [facility]. He has not had this done [...] (BP Location: Right arm (more content not included)...[facility]04-30-2024 Hospital Discharge instructions Patient Education [...] under a microscope. This is called the Austin score and the total score can range from 6 10, indicating how likely it is that the cancer will spread (metastasize) to other parts of the body. The higher the score, the greater thelikelihood that the cancer will spread. Aleksandr 6 or lower: This indicates that the cancer cells look similar to normal prostate cells (well differentiated). Austin 7: This indicates that the cancer cells [...] stress of having cancer. General instructions Take bjew-czz-itxfrqf and prescription medicines only as told by your health care provider. If you have to go to the hospital, notify your cancer specialist (oncologist). Keep all follow-up visits. This is important. Where to find more information [place] [employer]: www.cancer.org [place] [employer]: www.cancer.net National Cancer [place]: www.cancer.gov Contact a health care provider if: [...] provider. Document Revised: 11/10/2021 Document Reviewed: 11/10/2021 hoohbe Patient Education 2022 [employer]. Follow Up Care 12/20/2022 14:56:06 With:JAY CARRANZA, BRENNA Bazan, URL Address: [place] [address] Business (1) When: only if needed [facility]ara 02-06-2024 Evaluation note* Encounter Date Diagnosis Assessment [...] understands and is agreement with that plan [facility] Other 12-14-2023 History of Present illness Narrative* Dahiana Coelho - 08/10/2023 11:40 AM EST Ortho Nurse - Established Patient Intake Room#: 4 Date: 08/10/2023 10:53 AM Patient: Tristin Powell Sr. MR#: [id number] : 1940 Age: 83 y.o. 2yr R [...] has No Known Allergies. * Scar Ortega APRN-TRANSPORTATION CONSULTANT - 08/10/2023 11:40 AM EST HPI: Patient [...] 10:53 AM Patient: Tristin Powell Sr. MR#: [id number] : 1940 Age: 83 y.o. 2yr R [...] Laterality: N/A; Surgeon: Isaias Vogt MD; Location: [facility] PERIPHERAL STENT PLACEMENT N/A 08/09/2018 Laterality: N/A; Surgeon: Isaias Vogt MD; Location: [facility] ATHERECTOMY PERIPHERAL N/A 08/09/2018 Laterality: N/A; Surgeon: Isaias Vogt MD; Location: [facility] CORONARY STENT PLACEMENT 2007 [...] has No Known Allergies. documented in this encounterMer[facility]12-[facility] History of Present illness Narrative* Mohsen [...] year with repeat testing. documented in this [id number] History of Present illness Narrative* Katie Anna [...] Duplex and had previous study done at [facility] in Apr [address] Maxim Beaver. This Nurse will obtain records and submit to Dr. Sarabia for review. documented in this [id number] Evaluation note* Encounter Date Diagnosis Assessment Notes [...] with speech that he should seek attention. [facility] Other 09-26-2023 Evaluation note* Encounter Date Diagnosis [...] to go over the results with him. [facility] Other 09-26-2023 Evaluation note* Encounter Date Diagnosis Assessment Notes Treatment Notes Treatment Clinical Notes Apr, Peripheral vascular disease, unspecified (ICD-10 - I73.9) Apr, Other specified postprocedural states (ICD-10 - Z98.890) Apr, Left carotid bruit (ICD-10 - R09.89) [facility] Other 04-25-2023 Hospital Discharge instructions Patient Education [...] Follow these instructions at home: Medicines Take qvgm-hlu-vwhblom and prescription medicines only as told by [...] provider. Document Revised: 11/10/2021 Document Reviewed: 11/10/2021 hoohbe Patient Education 2022 [employer]. Follow Up Care 11/21/2022 15:38:53 With:JAY CARRANZA, BRENNA Bazan, URL Address: When:1 year [facility] 03-20-2023 Evaluation note* Encounter Date Diagnosis [...] meantime with any worsening symptoms or concerns. [facility] Other 03-14-2023 History of Present illness Narrative* Camila Bland PTA - 11/08/2022 12:08 PM EDT Physical Therapy [...] to Sit: Supervision, Head of bed elevated Pump House Operator: bed positioning mechanics, bedrails Skilled Intervention Provided: verbal cues, patient education, monitoring patient response with activity For: logroll technique, proper body mechanics, self-monitoring during activity Resulting in: improved functional independence Transfers Sit to Stand: Stand by assist Stand Pivot Transfers: Stand by assist Pump House Operator: BUE Skilled Intervention Provided: verbal cues, neuromuscular [...] recently Prior Level of Function Level of [place] - Transfers/Ambulation/Mobility: Independent with household ambulation, Independent with community ambulation Level of [place] - ADLs: Independent Level of [place] - Homemaking: Independent Driving: Patient drives For [...] Dawn MD - 11/08/2022 6:57 AM EDT [facility]/08/2022 Tristin Powell 1940 [id number] Assessment/Plan: Tristin Powell is an 82 year old male with a history of Prostate Cancer, CAD, PAD (left foot amputation 2018), Hypertension, HFpEF who presented to [facility] 11/03/2022 with persistent pneumonia despite #2 rounds [...] to rubbing effect. Recommended to go to [facility] for adjustment to prevent valgus deformity [...] Home Expected Disposition: same. Estimated discharge date: 11/08- pending Pulmonary. Subjective: Patient is new to me today. Today I personally did a review of prior medical records and have summarized my findings in my assessment and plan as noted above. Today I also reviewed recent labs, diagnostics, vitals including pulse ox, and construction consultant/other provider recommendations. VSS. Troponin with negative [...] Oral Daily ipratropium-albuteroL 3 mL Inhalation Q6H [facility] metoprolol tartrate 50 mg Oral BID pantoprazole 40 mg Oral BID polyethylene glycol 17 g Oral Daily rivaroxaban 2.5 mg Oral BID sodium chloride 1 spray Each Nare BID sodium chloride (PF) 5 mL Intravenous Q8H [facility] Labs, Imaging and Studies reviewed: Results from [...] Standing Balance - Static: Stand by assist Pump House Operator - Standing Static: (none) Standing Balance - Dynamic: Stand by assist, Contact guard assist Pump House Operator - Standing Dynamic: (none) Skilled Intervention Provided: verbal cues, patient education For: self-monitoring during activity, safe use of AD and/or equipment Resulting in: improved functional independence Bed Mobility Supine to Sit: (N/A Pt sitting edge of bed upon arrival) Sit to Supine: (N/A Pt sitting edge of bed at end of session) Transfers Sit to Stand: Stand by assist Pump House Operator: (none) Skilled Intervention Provided: verbal cues For: [...] recently Prior Level of Function Level of [place] - Transfers/Ambulation/Mobility: Independent with household ambulation, Independent with community ambulation Level of [place] - ADLs: Independent Level of [place] - Homemaking: Independent Driving: Patient drives For [...] Barboza MD - 11/07/2022 7:39 AM EDT [facility] Inpatient Progress Note 11/07/2022 Tristin Powell 1940 [id number] Assessment/Plan: Tristin Powell is an 82 year old male with a history of Prostate Cancer, CAD, PAD (left foot amputation 2018), Hypertension, HFpEF who presented to [facility] 11/03/2022 with persistent pneumonia despite #2 rounds [...] to rubbing effect. Recommended to go to [facility] for adjustment to prevent valgus deformity [...] 6' 1 Wt 113.4 kg (250 lb) GuJ532% BMI 32.98 kg/m General: NAD Eyes: EOMI [...] BID AC ipratropium-albuteroL 3 mL Inhalation Q6H [facility] losartan 50 mg Oral Daily with lunch metoprolol tartrate 50 mg Oral BID pantoprazole 40 mg Oral BID polyethylene glycol 17 g Oral Daily rivaroxaban 2.5 mg Oral BID sodium chloride (PF) 5 mL Intravenous Q8H [facility] Labs, Imaging and Studies reviewed: Results from [...] Barboza MD - 11/06/2022 10:11 AM EDT [facility] Inpatient Progress Note 11/06/2022 Tristin Powell 1940 [id number] Assessment/Plan: Tristin Bazan Sherry is an 82 year old male with a history of Prostate Cancer, CAD, PAD (left foot amputation 2018), Hypertension, HFpEF who presented to [facility] 11/03/2022 with persistent pneumonia despite #2 rounds [...] Standing Balance - Static: Contact guard assist Pump House Operator - Standing Static: other (comment) (none) Standing Balance - Dynamic: Contact guard assist Pump House Operator - Standing Dynamic: (none) Loss of Balance- [...] assist Stand Pivot Transfers: Contact guard assist Pump House Operator: other (comment) (none) Skilled Intervention Provided: verbal [...] recently Prior Level of Function Level of [place] - Transfers/Ambulation/Mobility: Independent with household ambulation, Independent with community ambulation Level of [place] - ADLs: Independent Level of [place] - Homemaking: Independent Driving: Patient drives For [...] Barboza MD - 11/05/2022 9:53 AM EST [facility] Inpatient Progress Note 11/05/2022 Tristin Powell 1940 [id number] Assessment/Plan: Tristin Powell is an 82 year old male with a history of Prostate Cancer, CAD, PAD (left foot amputation 2018), Hypertension, HFpEF who presented to [facility] 11/03/2022 with persistent pneumonia despite #2 rounds [...] left foot area. Nasal irritation. ConsultedPodiatry. Prescribed [place] Saline nasal spray. Reviewed chart. Physical Exam: [...] Buttock Left Date First Assessed/Time First Assessed: 11/04/22 0223 Present on Hospital Admission: Yes Primary Wound Type: (c) Location: Buttock Wound Location Orientation: Left Dressing Status Open to air Wound Length (cm) 0.3 cm Wound Width (cm) 0.3 cm Wound Surface Area (cm^2) 0.09 cm^2 Area % Change 0 Drainage Amount None Odor None Wound Bed Characteristics Scab Edna-wound Assessment Painful;[place] Treatments Skin barrier cream/paste Cleansed Soap and [...] recently Prior Level of Function Level of [place] - Transfers/Ambulation/Mobility: Independent with household ambulation, Independent with community ambulation Level of [place] - ADLs: Independent Level of [place] - Homemaking: Independent Driving: Patient drives Past Medical History: Diagnosis Date Arthritis Avascular necrosis of bone of hip (HCC) Claudication (HCC) Coronary artery disease Herpes zoster Hyperlipidemia Hypertension PAD (peripheral artery disease) (HCC) 01/21/2022 Prostate cancer (HCC) Vascular disease Past Surgical History: Procedure Laterality Date 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/08/2018 Procedure: LEFT MIDFOOT AMPUTATION; Surgeon: Flynn Mann DPM; Location: [facility] OR; Service: Podiatry ANKLE SURGERY Left BYPASS PERONEAL FEMORAL Right 09/07/2018 Procedure: BYPASS PERONEAL FEMORAL, RIGHT SAPHENOUS VEIN HARVEST, COMPLETION ANGIOGRAM; Surgeon: Mohsen Sarabia MD; Location: [facility]; Service: Cardiovascular CARDIAC CATHETERIZATION Left 09/05/2018 Procedure: Angio Lower Extremity; Surgeon: Ben Hahn MD; Location: [facility]; Service: Cardiovascular CARDIAC SURGERY 2017 triple bypass EGD N/A 10/10/2018 Procedure: ESOPHAGOGASTRODUODENOSCOPY; Surgeon: Ben Jensen MD; Location: [facility]; Service: Gastroenterology EYE SURGERY Right 2015 [...] Barboza MD - 11/04/2022 10:58 AM EST [facility] 11/04/2022 Tristin Powell 1940 [id number] Assessment/Plan: Tristin Powell is an 82 year old male with a history of Prostate Cancer, CAD, PAD (left foot amputation 2018), Hypertension, HFpEF who presented to [facility] 11/03/2022 with persistent pneumonia despite #2 rounds [...] sodium chloride (PF) 5 mL Intravenous Q8H [facility] vancomycin 750 mg Intravenous Q12H Labs, Imaging [...] PHOSPHORUS mg/dL 3.9* -- * El Owen [facility],PharmD - 11/03/2022 10:20 PM EST PHARMACOTHERAPY [...] 1 Encounters: 11/03/22 113.4 kg (250 lb) [place] body weight: 79.9 kg (176 lb 2.4 [...] Component Value Units Date/Time Sputum Aerobic Culture [[id number]] Order Status: Sent Specimen: Sputum, Expectorated S. pneumoniae Urine Antigen [[id number]] Order Status: Sent Specimen: Urine, Random Legionella Antigen, Urine [[id number]] Order Status: Sent Specimen: Urine, Random MRSA DNA Amplified Probe [[id number]] Order Status: Sent Specimen: Swab from Nasal Blood Culture Aerobic/Anaerobic [[id number]] (Normal) Collected: 11/03/221352 Order Status: Completed Specimen: Blood, Peripheral Updated: 11/03/22 1559 Culture In Progress; No Growth to Date Blood Culture Aerobic/Anaerobic [[id number]] (Normal) Collected: 11/03/221351 Order Status: Completed Specimen: Blood, Peripheral Updated: 11/03/22 1559 Culture In Progress; No Growth to Date Pharmacist: El Owen RPh,PharmD Contact Number: documented in this [id number] Hospital Discharge instructions * Discharge Instructions* Vickey [...] Care Everywhere. * Heart Failure: Avoiding Triggers ([place]) * Heart Failure: Limiting Sodium ([place]) * Heart Failure: Restricting Fluids: General Info ([place]) * Low Sodium Diet ([place]) documented in this [id number] Hospital course Narrative* Vickey Dawn MD - 11/08/2022 11:18 AM EDT Images from the original note were not included. [facility] DISCHARGE SUMMARY Tristin Powell Account: [id number] Admitted: 11/03/2022 Discharge Date/Time: 11/08/22 11:30 AM [...] amputation 2018), Hypertension, HFpEF who presented to [facility] 11/03/2022 with persistent pneumonia despite #2 rounds [...] to rubbing effect. Recommended to go to [facility] for adjustment to prevent valgus deformity [...] Trelegy Ellipta 100-62.5-25 mcg Dsdv Generic drug: rqvpkyvxnfj-yyxixczkz-eezamcjo zolpidem 10 mg tablet Commonly known as: [...] Your Medications These medications were sent to [facility] [id number] [facility] [address] [facility] [address] [facility] [address] furosemide 20 MG tablet levoFLOXacin 750 MG tablet Physician(s) Family: Flash Lovelace MD, , Address: [address] [place] [address] / [facility] [address] Follow Up: Dashawn Orosco DPM [address] [place] [address] Dr [address] [phone] Schedule an appointment as soon as possible for a visit in 1 week(s) [facility] [address] [place] [address] Follow up Thank you for allowing us to participate in your care. Schedule an appt with your established marine oil terminal superintendent in [place]. Call us with any questions. Wagner Moon MD [address] [place] [address] [address] [phone] Call in 4 week(s) Call in 4-6 weeks after follow up CT chest Additional Information: Patient seen and examined day of discharge. For more information regarding patient's care, including complete radiology reports, please contact [facility] at Patient instructions, including activity, were given to the patient/family at discharge. Please seethe After Visit Summary in the medical record for details. Time spent on discharge: > 30 minutes Completed by: Vickey Dawn on 11/08/22, 11:30 AM documented in this [id number] Consult note* Monica Vázquez RN - 11/07/2022 [...] of early recognition and report to their marine oil terminal superintendent,PCP or health care provider. Daily weight monitoring [...] fluid and lifestyle changes. MATERIALS, RESOURCES GIVEN: [place] [facility] Guide to Living with Heart Failure book, 5 day low sodium+ Diabetic sample menu. Clinical references attached to AVS. [id number] Consult note* Monica Vázquez RN - 11/07/2022 [...] of early recognition and report to their marine oil terminal superintendent,PCP or health care provider. Daily weight monitoring [...] fluid and lifestyle changes. MATERIALS, RESOURCES GIVEN: [place] [facility] Guide to Living with Heart Failure book, 5 day low sodium+ Diabetic sample menu. Clinical references attached to AVS. * Kory Mei CNP - 11/07/2022 10:11 AM EDTAssociated Order(s): IP CONSULT TO CARDIOLOGY General Cardiology Inpatient Consult Heart & Vascular [facility] 11/07/2022 Kory Mei CNP [facility] Rounding RN [phone] Patient: Tristin Powell Date of : 1940 (82 y.o.) Referring Provider: Refer to consult order in electronic medical record PCP: Flash Lovelace MD Poly Area Supervisor: Follows with cardiology at [facility] Assessment/Plan: Atypical chest pain Elevated troponins [...] consulted. -Follow up with PCP or personal marine oil terminal superintendent in 1-2 weeks Coronary artery disease History of multiple stents and subsequent coronary artery bypass graft x 3 (CHAVEZ to Diag, SVG to OM1, SVG to PDA) at [facility] in [place] 10/2016 Left heart catheterization prior to coronary [...] as outpatient for pneumonia and seen at [facility] ED on 10/30 for fever, persistent frequent cough with associated chest pain, n/v, decrease appetite, weakness, and mild dyspnea. Per patient was told by PCP that there was also Fluid on his lungs . Normal BNP at [facility] ED. Discharged on ATB. Since admit [...] bypass graft. Not following routinely with his marine oil terminal superintendent. Imaging: I independently reviewed the EKG and agree with the interpretation(s) with the following comments. SR, isolated flat T wave lead III; ECG today with chest pain: Sr with occasional PVC, TWA lead III,aVF EKG 12-lead Final Result by Interface, [facility] [place] [facility]03/[facility]22 1658) Echocardiogram complete w contrast [...] Arthritis Avascular necrosis of bone of hip ([facility]) Claudication ([facility]) Coronary artery disease Herpes zoster Hyperlipidemia Hypertension PAD (peripheral artery disease) ([facility]) 01/21/2022 Prostate cancer ([facility]) Vascular disease Past Surgical History: Procedure Laterality Date 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/08/2018 Procedure: LEFT MIDFOOT AMPUTATION; Surgeon: Flynn Mann DPM; Location: [facility] OR; Service: Podiatry ANKLE SURGERY Left BYPASS PERONEAL FEMORAL Right 09/07/2018 Procedure: BYPASS PERONEAL FEMORAL, RIGHT SAPHENOUS VEIN HARVEST, COMPLETION ANGIOGRAM; Surgeon: Mohsen Sarabia MD; Location: [facility]; Service: Cardiovascular CARDIAC CATHETERIZATION Left 09/05/2018 Procedure: Angio Lower Extremity; Surgeon: Ben Hahn MD; Location: [facility]; Service: Cardiovascular CARDIAC SURGERY 2017 triple bypass EGD N/A 10/10/2018 Procedure: ESOPHAGOGASTRODUODENOSCOPY; Surgeon: Ben Jensen MD; Location: [facility] Endo; Service: Gastroenterology EYE SURGERY Right 2015 [...] solution 3 mL 3 mL Inhalation Q6H [facility] Duke Claros MD 3 mL at 11/07/22 0828 ipratropium-albuteroL (DUO-NEB) 0.5-2.5 mg/3 ml nebulizer solution 3 mL 3 mL Inhalation Q4H PRN Duke Claros MD 3 mL at 11/04/22 2129 metoprolol tartrate (LOPRESSOR) tablet 50 mg 50 mg Oral BID Duke Claros MD 50 mg at 900 naloxone (NARCAN) injection 0.1 mg 0.1 mg Intravenous PRN Jass Barboza MD And naloxone (NARCAN) injection 0.4 mg 0.4 mg Intravenous PRN Jass Barboza MD ondansetron (ZOFRAN-ODT) disintegrating tablet 4 mg 4 mg Oral Q6H PRN Duek Claros MD 4 mg at11/07/22 0712 Or [...] cardiac issues or concerns. Jaziel Jeffries MD, [facility] Inpatient Rounding [phone] Office [phone] * Aaron Fenton DPM - 11/07/2022 7:07 AM EDTAssociated Order(s): IP CONSULT TO PODIATRY Critical Limb Care Consult Note Tristin Powell AGE: 82 y.o. GENDER: male : 1940 EPISODE DATE: 11/03/2022 Assessment/Plan: Tristin Powell is an 82 year old male with a history of Prostate Cancer, CAD, PAD (left foot amputation 2018), Hypertension, HFpEF who presented to [facility] 11/03/2022 with persistent pneumonia despite #2 rounds [...] ankle. He will need to go [facility] for an adjustment to help prevent [...] zoster Hyperlipidemia Hypertension PAD (peripheral artery disease) ([facility]) 01/21/2022 Prostate cancer ([facility]) Vascular disease PAST SURGICAL HISTORY Past Surgical History: Procedure Laterality Date 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/08/2018 Procedure: LEFT MIDFOOT AMPUTATION; Surgeon: Flynn Mann DPM; Location: [facility] OR; Service: Podiatry ANKLE SURGERY Left BYPASS PERONEAL FEMORAL Right 09/07/2018 Procedure: BYPASS PERONEAL FEMORAL, RIGHT SAPHENOUS VEIN HARVEST, COMPLETION ANGIOGRAM; Surgeon: Mohsen Sarabia MD; Location: [facility]; Service: Cardiovascular CARDIAC CATHETERIZATION Left 09/05/2018 Procedure: Angio Lower Extremity; Surgeon: Ben Hahn MD; Location: [facility]; Service: Cardiovascular CARDIAC SURGERY 2017 triple bypass EGD N/A 10/10/2018 Procedure: ESOPHAGOGASTRODUODENOSCOPY; Surgeon: Ben Jensen MD; Location: [facility]; Service: Gastroenterology EYE SURGERY Right 2015 [...] Nare route daily . 16 g 12 lcrbhwhrnrr-glwgdacfp-lhdjyhzm (Trelegy Ellipta) 100-62.5-25 mcg DsDv 1 puff [...] 6' 1 Wt 113.4 kg (250 lb) FwX141% BMI 32.98 kg/m PHYSICAL EXAM General: The [...] intolerance. 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 [...] recently Prior Level of Function Level of [place] - Transfers/Ambulation/Mobility: Independent with household ambulation, Independent with community ambulation Level of [place] - ADLs: Independent Level of [place] - Homemaking: Independent Driving: Patient drives Past Medical History: Diagnosis Date Arthritis Avascular necrosis of bone of hip (HCC) Claudication (HCC) Coronary artery disease Herpes zoster Hyperlipidemia Hypertension PAD (peripheral artery disease) ([facility]) 01/21/2022 Prostate cancer ([facility]) Vascular disease Past Surgical History: Procedure Laterality Date 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/08/2018 Procedure: LEFT MIDFOOT AMPUTATION; Surgeon: Flynn Mann DPM; Location: [facility]; Service: Podiatry ANKLE SURGERY Left BYPASS PERONEAL FEMORAL Right 09/07/2018 Procedure: BYPASS PERONEAL FEMORAL, RIGHT SAPHENOUS VEIN HARVEST, COMPLETION ANGIOGRAM; Surgeon: Mohsen Sarabia MD; Location: [facility]; Service: Cardiovascular CARDIAC CATHETERIZATION Left 09/05/2018 Procedure: Angio Lower Extremity; Surgeon: Ben Hahn MD; Location: [facility]; Service: Cardiovascular CARDIAC SURGERY 2017 triple bypass EGD N/A 10/10/2018 Procedure: ESOPHAGOGASTRODUODENOSCOPY; Surgeon: Ben Jensen MD; Location: [facility]; Service: Gastroenterology EYE SURGERY Right 2015 [...] Tristin Powell Admit Date: [id number] MR #: [id number] : 1940 Physicians: Flash Lovelace MD (Family); [...] CAD, HLD, HTN, prostate cancer presenting to [facility] 11/03 with CAP. Patient also reports left [...] MIDFOOT AMPUTATION; Surgeon: Flynn Mann DPM; Location: [facility]; Service: Podiatry ANKLE SURGERY Left BYPASS PERONEAL FEMORAL Right 09/07/2018 Procedure: BYPASS PERONEAL FEMORAL, RIGHT SAPHENOUS VEIN HARVEST, COMPLETION ANGIOGRAM; Surgeon: Mohsen Sarabia MD; Location: [facility]; Service: Cardiovascular CARDIAC CATHETERIZATION Left 09/05/2018 Procedure: Angio Lower Extremity; Surgeon: Ben Hahn MD; Location: [facility]; Service: Cardiovascular CARDIAC SURGERY 2017 triple bypass EGD N/A 10/10/2018 Procedure: ESOPHAGOGASTRODUODENOSCOPY; Surgeon: Ben Jensen MD; Location: [facility]; Service: Gastroenterology EYE SURGERY Right 2015 [...] sprays by Each Nare route daily . zfytxtptnzh-teyfifjrj-qifixpqg (Trelegy Ellipta) 100-62.5-25 mcg DsDv 1 puff [...] his primary care physician. documented in this [id number] Consult note* Kory Mei CNP - 11/07/2022 10:11 AM EDTAssociated Order(s): IP CONSULT TO CARDIOLOGY General Cardiology Inpatient Consult Heart & Vascular [facility] 11/07/2022 Kory Mei CNP [facility] Rounding RN [phone] Patient: Tristin Powell Date of : 1940 (82 y.o.) Referring Provider: Refer to consult order in electronic medical record PCP: Flash Lovelace MD Poly Area Supervisor: Follows with cardiology at [facility] Assessment/Plan: Atypical chest pain Elevated troponins [...] consulted. -Follow up with PCP or personal marine oil terminal superintendent in 1-2 weeks Coronary artery disease History of multiple stents and subsequent coronary artery bypass graft x 3 (CHAVEZ to Diag, SVG to OM1, SVG to PDA) at [facility] in [place] 10/2016 Left heart catheterization prior to coronary [...] as outpatient for pneumonia and seen at [facility] ED on 10/30 for fever, persistent frequent cough with associated chest pain, n/v, decrease appetite, weakness, and mild dyspnea. Per patient was told by PCP that there was also Fluid on his lungs . Normal BNP at [facility] ED. Discharged on ATB. Since admit [...] bypass graft. Not following routinely with his marine oil terminal superintendent. Imaging: I independently reviewed the EKG and agree with the interpretation(s) with the following comments. SR, isolated flat T wave lead III; ECG today with chest pain: Sr with occasional PVC, TWA lead III,aVF EKG 12-lead Final Result by Interface, Lab Results In [place] [facility] (11/03/2022 1658) Echocardiogram complete w contrast [...] Arthritis Avascular necrosis of bone of hip ([facility]) Claudication ([facility]) Coronary artery disease Herpes zoster Hyperlipidemia Hypertension PAD (peripheral artery disease) ([facility]) 01/21/2022 Prostate cancer ([facility]) Vascular disease Past Surgical History: Procedure Laterality Date 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/08/2018 Procedure: LEFT MIDFOOT AMPUTATION; Surgeon: Flynn Mann DPM; Location: [facility]; Service: Podiatry ANKLE SURGERY Left BYPASS PERONEAL FEMORAL Right 09/07/2018 Procedure: BYPASS PERONEAL FEMORAL, RIGHT SAPHENOUS VEIN HARVEST, COMPLETION ANGIOGRAM; Surgeon: Mohsen Sarabia MD; Location: [facility]; Service: Cardiovascular CARDIAC CATHETERIZATION Left 09/05/2018 Procedure: Angio Lower Extremity; Surgeon: Ben Hahn MD; Location: [facility]; Service: Cardiovascular CARDIAC SURGERY 2017 triple bypass EGD N/A 10/10/2018 Procedure: ESOPHAGOGASTRODUODENOSCOPY; Surgeon: Ben Jensen MD; Location: [facility]; Service: Gastroenterology EYE SURGERY Right 2015 [...] solution 3 mL 3 mL Inhalation Q6H [facility] Duke Claros MD 3 mL at 11/07/22 0828 ipratropium-albuteroL (DUO-NEB) 0.5-2.5 mg/3 ml nebulizer solution 3 mL 3 mL Inhalation Q4H PRN Duke Claros MD 3 mL at 11/04/229 metoprolol tartrate (LOPRESSOR) tablet 50 mg 50 mg Oral BID Duke Claros MD 50 mg at 900 naloxone (NARCAN) injection 0.1 mg 0.1 mg [...] 0.9% (NS) 0-150 mL/hr Intravenous PRN Aurelia Tillamn CNP Stopped at 11/05/22 2324 sodium chloride [...] cardiac issues or concerns. Jaziel Jeffries MD, [facility] Inpatient Rounding [phone] Office [phone] [facility] Work Phone: [phone] Consult note* Aaron Fenton DPM - 11/07/2022 7:07 AM EDTAssociated Order(s): IP CONSULT TO PODIATRY Critical Limb Care Consult Note Tristin Powell AGE: 82 y.o. GENDER: male : 1940 EPISODE DATE: 11/03/2022 Assessment/Plan: Tristin Powell is an 82 year old male with a history of Prostate Cancer, CAD, PAD (left foot amputation 2018), Hypertension, HFpEF who presented to [facility] 11/03/2022 with persistent pneumonia despite #2 rounds [...] ankle. He will need to go to [facility] for an adjustment to help prevent [...] zoster Hyperlipidemia Hypertension PAD (peripheral artery disease) ([facility]) 01/21/2022 Prostate cancer ([facility]) Vascular disease PAST SURGICAL HISTORY Past Surgical History: Procedure Laterality Date 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/08/2018 Procedure: LEFT MIDFOOT AMPUTATION; Surgeon: Flynn Mann DPM; Location: [facility]; Service: Podiatry ANKLE SURGERY Left BYPASS PERONEAL FEMORAL Right 09/07/2018 Procedure: BYPASS PERONEAL FEMORAL, RIGHT SAPHENOUS VEIN HARVEST, COMPLETION ANGIOGRAM; Surgeon: Mohsen Sarabia MD; Location: [facility]; Service: Cardiovascular CARDIAC CATHETERIZATION Left 09/05/2018 Procedure: Angio Lower Extremity; Surgeon: Ben Hahn MD; Location: [facility]; Service: Cardiovascular CARDIAC SURGERY 2017 triple bypass EGD N/A 10/10/2018 Procedure: ESOPHAGOGASTRODUODENOSCOPY; Surgeon: Ben Jensen MD; Location: [facility]; Service: Gastroenterology EYE SURGERY Right 2015 [...] Nare route daily . 16 g 12 cydtyfembnp-frhvvqagv-srzfgmek (Trelegy Ellipta) 100-62.5-25 mcg DsDv 1 puff [...] 6' 1 Wt 113.4 kg (250 lb) CiF757% BMI 32.98 kg/m PHYSICAL EXAM General: The [...] Fenton DPM 11/07/2022 at 7:08 AM ote [facility] Work Phone: 1(349) [phone] Note* Plan of Care - Alma Delia [...] Completed Goal: Knowledge of Enviroment Outcome: Completed [id number] Miscellaneous Notes* Plan of Care - Alma [...] in both lower extremities to approximately the svt-ct-bkimb calf area bilaterally, but there are no signs of infection. There is no redness. documented in this [id number] Consult note* Lyn Cerrato OT - 11/04/2022 1:51 PM EST Occupational [...] intolerance. 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 [...] recently Prior Level of Function Level of [place] - Transfers/Ambulation/Mobility: Independent with household ambulation, Independent with community ambulation Level of [place] - ADLs: Independent Level of [place] - Homemaking: Independent Driving: Patient drives Past Medical History: Diagnosis Date Arthritis Avascular necrosis of bone of hip (HCC) Claudication (HCC) Coronary artery disease Herpes zoster Hyperlipidemia Hypertension PAD (peripheral artery disease) (HCC) 01/21/2022 Prostate cancer (HCC) Vascular disease Past Surgical History: Procedure Laterality Date 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/08/2018 Procedure: LEFT MIDFOOT AMPUTATION; Surgeon: Flynn Mann DPM; Location: [facility] OR; Service: Podiatry ANKLE SURGERY Left BYPASS PERONEAL FEMORAL Right 09/07/2018 Procedure: BYPASS PERONEAL FEMORAL, RIGHT SAPHENOUS VEIN HARVEST, COMPLETION ANGIOGRAM; Surgeon: Mohsen Sarabia MD; Location: [facility]; Service: Cardiovascular CARDIAC CATHETERIZATION Left 09/05/2018 Procedure: Angio Lower Extremity; Surgeon: Ben Hahn MD; Location: [facility]; Service: Cardiovascular CARDIAC SURGERY 2017 triple bypass EGD N/A 10/10/2018 Procedure: ESOPHAGOGASTRODUODENOSCOPY; Surgeon: Ben Jensen MD; Location: [facility]; Service: Gastroenterology EYE SURGERY Right 2015 [...] completion of Occupational Therapy Plan of Care. [id number] Consult note* Neetu Thompson RN - 11/04/2022 11:08 AM EST Associated Order(s): IP CONSULT TO CARDIOLOGY - PERIPHERAL VASC DISEASE Information only. Cardiology consult completed by Aminah Calixto CNP 3.10.23. See note for details. [id number] Note* Quick Note - Rojelio Mackenzie DO [...] follow-up Rojelio Mackenzie, PGY-4 Orthopedic Surgery Resident [facility] Work Phone: [phone]) [phone] Note* Quick Note - Catina Calixto CNP - 11/04/2022 8:06 AM EST Received consult for patient with chronic PAD s/p L fem-peroneal (GSV) bypass per Dr. Sarabia in 2019. He has no acute issues or lower extremity wounds and denies BLE claudication. No indication for additional inpatient work up/resting. Patient can follow up with Dr. Sarabia as an outpatient. [id number] Evaluation + Plan note* Assessment & Plan [...] 2022 was known to be reduced (0.5) [id number] Evaluation + Plan note* Assessment & Plan [...] Dr. Messina as needed if symptoms persist [id number] Consult note* Gustavo Macdonald CNP - 11/04/2022 6:50 AM EST Associated Order(s): IP CONSULT TO ORTHOPEDIC SURGERY CONSULT NOTE Patient Name: Tristin Powell Admit Date: 3080930 MR #: [id number] : 1940 Physicians: Flash Lovelace MD (Family); [...] vs hematoma History of Present Illness: Tristin Pwoell is a 82 y.o. right hand dominant male with pmh of PAD on xarelto, CAD, HLD, HTN, prostate cancer presenting to [facility] 11/03 with CAP. Patient also reports left [...] Arthritis Avascular necrosis of bone of hip ([facility]) Claudication ([facility]) Coronary artery disease Herpes zoster Hyperlipidemia Hypertension PAD (peripheral artery disease) ([facility]) 01/21/2022 Prostate cancer ([facility]) Vascular disease Past Surgical History: Procedure Laterality Date 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/08/2018 Procedure: LEFT MIDFOOT AMPUTATION; Surgeon: Flynn Mann DPM; Location: [facility]; Service: Podiatry ANKLE SURGERY Left BYPASS PERONEAL FEMORAL Right 09/07/2018 Procedure: BYPASS PERONEAL FEMORAL, RIGHT SAPHENOUS VEIN HARVEST, COMPLETION ANGIOGRAM; Surgeon: Mohsen Sarabia MD; Location: [facility]; Service: Cardiovascular CARDIAC CATHETERIZATION Left 09/05/2018 Procedure: Angio Lower Extremity; Surgeon: Ben Hahn MD; Location: [facility]; Service: Cardiovascular CARDIAC SURGERY 2017 triple bypass EGD N/A 10/10/2018 Procedure: ESOPHAGOGASTRODUODENOSCOPY; Surgeon: Ben Jensen MD; Location: [facility]; Service: Gastroenterology EYE SURGERY Right 2015 [...] total) by mouth 2 (two) timesa day 08/29 tab . ergocalciferol (ERGOCALCIFEROL) 1,250 mcg (50,000 unit) capsule Take 1 (one) capsule (50,000 Units total) by mouth once a week . fluticasone (FLONASE) 50 mcg/actuation nasal spray 2 (two) sprays by Each Nare route daily . rfzqqlwypwz-alrvgdvry-fqgshevd (Trelegy Ellipta) 100-62.5-25 mcg DsDv 1 puff [...] should follow-up with his primary care physician. [id number] Note* Plan of Care - Deisi Gimenez RN - 11/04/2022 3:01 AM EST Problem: Actual or potential alteration in health Goal: Absence of healthcare acquired conditions Outcome: Partially Met Goal: Knowledge of Interdisciplinary Plan of Care Outcome: Partially Met Goal: Knowledge of Enviroment Outcome: Partially Met Problem: Pressure Ulcer - Risk of Goal: Absence of pressure ulcer Outcome: Partially Met [id number] History and physical note* Duke Claros MD - 11/03/2022 9:58 PM EST [facility] History and Physical Note 11/03/22 Tristin Powell 1940 [id number] Assessment/Plan: Tristin Powell is a 82 y.o. male with a history of Prostate Cancer, CAD, PAD (left foot amputation 2018) HTN, HFpEF who presented to [facility] 11/03/2022 with persistent pneumonia despite #2 rounds [...] amputation 2018) HTN, HFpEF who presented to [facility] 11/03/2022 with persistent pneumonia despite #2 rounds [...] zoster Hyperlipidemia Hypertension PAD (peripheral artery disease) ([facility]) 01/21/2022 Prostate cancer ([facility]) Vascular disease Past Surgical History: Procedure Laterality Date 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/08/2018 Procedure: LEFT MIDFOOT AMPUTATION; Surgeon: Flynn Mann DPM; Location: [facility]; Service: Podiatry ANKLE SURGERY Left BYPASS PERONEAL FEMORAL Right 09/07/2018 Procedure: BYPASS PERONEAL FEMORAL, RIGHT SAPHENOUS VEIN HARVEST, COMPLETION ANGIOGRAM; Surgeon: Mohsen Sarabia MD; Location: [facility]; Service: Cardiovascular CARDIAC CATHETERIZATION Left 09/05/2018 Procedure: Angio Lower Extremity; Surgeon: Ben Hahn MD; Location: [facility]; Service: Cardiovascular CARDIAC SURGERY 2017 triple bypass EGD N/A 10/10/2018 Procedure: ESOPHAGOGASTRODUODENOSCOPY; Surgeon: Ben Jensen MD; Location: [facility]; Service: Gastroenterology EYE SURGERY Right 2015 [...] 64 GLUCOSE mg/dL 92 CALCIUM mg/dL 9.5 [id number] History and physical note* Duke Claros MD - 11/03/2022 9:58 PM EST [facility] History and Physical Note 11/03/22 Tristin Powell 1940 [id number] Assessment/Plan: Tristin Powell is a 82 y.o. male with a history of Prostate Cancer, CAD, PAD (left foot amputation 2018) HTN, HFpEF who presented to [facility] 11/03/2022 with persistent pneumonia despite #2 rounds [...] (2018), Continued home ASA, Xarelto 2.5mg. PV-Cardiology consulted [...] amputation 2018) HTN, HFpEF who presented to [facility] 11/03/2022 with persistent pneumonia despite #2 rounds [...] zoster Hyperlipidemia Hypertension PAD (peripheral artery disease) ([facility]) 01/21/2022 Prostate cancer (HCC) Vascular disease Past Surgical History: Procedure Laterality Date 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/08/2018 Procedure: LEFT MIDFOOT AMPUTATION; Surgeon: Flynn Mann DPM; Location: [facility]; Service: Podiatry ANKLE SURGERY Left BYPASS PERONEAL FEMORAL Right 09/07/2018 Procedure: BYPASS PERONEAL FEMORAL, RIGHT SAPHENOUS VEIN HARVEST, COMPLETION ANGIOGRAM; Surgeon: Mohsen Sarabia MD; Location: [facility]; Service: Cardiovascular CARDIAC CATHETERIZATION Left 09/05/2018 Procedure: Angio Lower Extremity; Surgeon: Ben Hahn MD; Location: [facility]; Service: Cardiovascular CARDIAC SURGERY 2017 triple bypass EGD N/A 10/10/2018 Procedure: ESOPHAGOGASTRODUODENOSCOPY; Surgeon: Ben Jensen MD; Location: [facility]; Service: Gastroenterology EYE SURGERY Right 2015 [...] 92 CALCIUM mg/dL 9.5 documented in this [id number] Emergency department Note* MIGUE Berumen - 11/03/2022 9:35 PM EST [facility] to write admission orders. [phone]. [id number] Emergency department Note* MIGUE Berumen - 11/03/2022 9:35 PM EST [facility] to write admission orders. [phone]. * Sharron Khan PA-C - 11/03/2022 5:46 [...] so he went to the ED in [facility]. He had a repeat chest x-ray at [...] with COPD and PAD [facility] with shortness of breath and cough [...] Normal BASIC METABOLIC PANEL - Normal Narrative: [facility] Laboratory Services has implemented the eGFR calculation approach that does not have a coefficient for race that conforms to the NKF-ASN Task Force Recommendations. CBC AND DIFFERENTIAL Narrative: The following orders were created for panel order CBC w/ Diff. Procedure Abnormality Status --------- ------ CBC Auto Differential[[id number]] Abnormal Final result Please view results for [...] this documentation, there is a possibility of hlamk-m-xevg errors inherent to this technology that may be missed during proofreading.) Sharron Khan PA-C 11/03/22 6352 * Aimee Owens RN - 11/03/2022 12:43 PM EST Pt arrives to the ED with multiple complaints. Per daughter patient has fluid on his lungs and there is concern for pneumonia. Daughter also states that there is concern for infection in his foot amputation from 2019. documented in this [id number] Note* ED Attestation Note - Ronnie Montoya [...] in both lower extremities to approximately the zkx-zm-dbgtm calf area bilaterally, but there are no signs of infection. There is no redness. [employer] Work Phone: [phone] Physician Emergency department Note* Sharron Khan PA-C [...] so he went to the ED in [facility]. He had a repeat chest x-ray at [...] zoster Hyperlipidemia Hypertension PAD (peripheral artery disease) ([facility]) 01/21/2022 Prostate cancer ([facility]) Vascular disease Labs Reviewed NT PRO BNP [...] Normal BASIC METABOLIC PANEL - Normal Narrative: [facility] Laboratory Services has implemented the eGFR calculation approach that does not have a coefficient for race that conforms to the NKF-ASN Task Force Recommendations. CBC AND DIFFERENTIAL Narrative: The following orders were created for panel order CBC w/ Diff. Procedure Abnormality Status --------- ------ CBC Auto Differential[[id number]] Abnormal Final result Please view results for [...] this documentation, there is a possibility of fzehw-q-xiks errors inherent to this technology that may be missed during proofreading.) Sharorn Khan PA-C 11/03/22 4889 [facility] Work Phone: [phone]) [phone] Emergency department Triage note* Aimee Owens RN - 11/03/2022 12:43 PM EST Pt arrives to the ED with multiple complaints. Per daughter patient has fluid on his lungs and there is concern for pneumonia. Daughter also states that there is concern for infection in his foot amputation from 2019. [id number] History of Present illness Narrative* Violetta Borjas MA - 09/20/2022 11:[address] Sarabia has ordered a carotid duplex. An attempt was made by phone and a letter was mailed with no response. Patient is due for testing for PAD 05/20. documented in this [id number] History of Present illness Narrative* Dahiana Coelho - 07/14/2022 11:00 AM EST Ortho Nurse - Established Patient Intake Room#: 5 Date: 07/14/2022 10:49 AM Patient: Tristin Powell Sr. MR#: [id number] : 1940 Age: 82 y.o. 1yr R [...] 10:49 AM Patient: Tristin Powell Sr. MR#: [id number] : 1940 Age: 82 y.o. 1yr R [...] mg by mouth 2 times daily. Takes /2 tab bid gabapentin 100 MG Cap capsule [...] has No Known Allergies. documented in this [facility]09-06-2022 Evaluation note* Encounter Date Diagnosis Assessment [...] will see him back in 6 months. [facility] Other 08-23-2022 Evaluation note* Encounter Date Diagnosis [...] He understands and agrees with that plan. [facility] Other 08-22-2022 History of Present illness Narrative* Aaron Fenton DPM - 04/18/2022 5:23 PM EDT Refer to note during admission documented in this [id number] Hospital course Narrative* Alexander Pascual MD - 04/15/2022 6:51 PM EDT Images from the original note were not included. [facility] DISCHARGE SUMMARY Tristin Powell Account: [id number] Admitted: 04/14/2022 Discharge Date/Time: 04/15/22 / 7:44 PM Clinical Summary Handoff to PCP Routine hospital follow up Tristin Powell is a 82 y.o. male with a history of HTN, HFpEF, PAD with bypass/stenting/amputation, CAD who recently discharged 01/21/22 after cellulitis L ankle who presented to [facility] Observation 04/14/2022 with worsening R leg pain [...] Physician(s) Family: Flash Lovelace MD, , Address: [address] [place] [address] Follow Up: Mohsen Sarabia MD [facility] [place] [address] Follow up Call office to schedule followup appointment in ~2 weeks Flash Lovelace MD [address] [place] [address] Follow up As needed Laboratory Follow Up by [facility]: None Additional Information: Patient seen and examined day of discharge. For more information regarding patient's care, including complete radiology reports, please contact [facility] at Patient instructions, including activity, were given to the patient/family at discharge. Please seethe After Visit Summary in the medical record for details. Completed by: Alexander Pascual on 04/15/22, 7:44 PM documented in this [id number] Note* Plan of Care - Lizz Damon [...] Goal: Absence of falls Outcome: Partially Met [id number] Miscellaneous Notes* Plan of Care - Lizz [...] falls Outcome: Partially Met documented in this [id number] History of Present illness Narrative* Rima Wu DO - 04/15/2022 1:01 PM EDT [facility] Progress Note 04/15/2022 Tristin Powell 1940 [id number] Assessment/Plan: Tristin Hortensia Powell is a 82 y.o. male with a history of HTN, HFpEF, PAD with bypass/stenting/amputation, CAD who recently discharged 01/21/22 after cellulitis L ankle who presented to [facility] 04/14/2022 with worsening R leg pain [...] Estimated discharge date:04/15/22 Subjective: Patient new to co, seen and examined, with labs/imaging reviewed and [...] Date INR 1.1 04/14/2022 documented in this [id number] Consult note* Darrick Calixto DO - 04/15/2022 [...] CAD s/p CABG x3 who presented to [facility] on 04/14/2022 with CLI of RLE. YAMILE [...] Calixto, General Surgery PGY-2 Please contact surgical director international pony roll finisher 5PM-6AM and weekends - #[phone] VTS Pager - [phone] HISTORY OF PRESENT ILLNESS Tristin Powell is a 82 y.o. male with history of PAD, s/p L transmetatarsal amputation (2019, Dr. Mann), s/p peroneal femoral bypass R saphenous vein harvest (2019, Dr. Sarabia), CAD s/p CABG x3 who presented to [facility] on 04/14/2022 with CLI of RLE. Patient presenting with 6 weeks of worsened right lower extremity pain. Patient is limited in his mobility due to his left-sided TMA. Patient reports increasing numbness and pain in his foot as well as claudication symptoms while ambulating. Patient was directed to [facility] by his PCP for evaluation. Per discussion with patient and his son, his lower extremity changes are chronic in nature and he does not have an acute surgical emergency. Patient given the option of outpatient follow-up given these nonacute changes however patient request to stay until the morning to see Dr. Sarabia for evaluation as he lives an hour and in a fdc and has difficulty getting here to see [...] Arthritis Avascular necrosis of bone of hip ([facility]) Claudication ([facility]) Coronary artery disease Herpes zoster Hyperlipidemia Hypertension PAD (peripheral artery disease) ([facility]) 01/21/2022 Prostate cancer ([facility]) Vascular disease Past Surgical History: Procedure Laterality Date 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/08/2018 Procedure: LEFT MIDFOOT AMPUTATION; Surgeon: Flynn Mann DPM; Location: [facility] OR; Service: Podiatry ANKLE SURGERY Left BYPASS PERONEAL FEMORAL Right 09/07/2018 Procedure: BYPASS PERONEAL FEMORAL, RIGHT SAPHENOUS VEIN HARVEST, COMPLETION ANGIOGRAM; Surgeon: Mohsen Sarabia MD; Location: [facility]; Service: Cardiovascular CARDIAC CATHETERIZATION Left 09/05/2018 Procedure: Angio Lower Extremity; Surgeon: Ben Hahn MD; Location: [facility]; Service: Cardiovascular CARDIAC SURGERY 2017 triple bypass EGD N/A 10/10/2018 Procedure: ESOPHAGOGASTRODUODENOSCOPY; Surgeon: Ben Jensen MD; Location: [facility]; Service: Gastroenterology EYE SURGERY Right 2015 [...] personally examined the patient and agree with resident/FRONT END JAVA DEVELOPER/PA assessment and plan with the following additional [...] it can be done as an outpatient. [employer] Work Phone: [phone]) 847-584408-19-2022 Consult note* Darrick Calixto DO - 04/15/2022 [...] CAD s/p CABG x3 who presented to [facility] on 04/14/2022 with CLI of RLE. YAMILE [...] Calixto, General Surgery PGY-2 Please contact surgical director international pony roll finisher 5PM-6AM and weekends - #[phone] VTS Pager - #[phone] HISTORY OF PRESENT ILLNESS Tristin Powell is a 82 y.o. male with history of PAD, s/p L transmetatarsal amputation (2019, Dr. Mann), s/p peroneal femoral bypass R saphenous vein harvest (2018, Dr. Sarabia), CAD s/p CABG x3 who presented to [facility] on 04/14/2022 with CLI of RLE. Patient presenting with 6 weeks of worsened right lower extremity pain. Patient is limited in his mobility due to his left-sided TMA. Patient reports increasing numbness and pain in his foot as well as claudication symptoms while ambulating. Patient was directed to [facility] by his PCP for evaluation. Per discussion with patient and his son, his lower extremity changes are chronic in nature and he does not have an acute surgical emergency. Patient given the option of outpatient follow-up given these nonacute changes however patient request to stay until the morning to see Dr. Sarabia for evaluation as he lives an hour and in a fdc and has difficulty getting here to see [...] Arthritis Avascular necrosis of bone of hip ([facility]) Claudication (HCC) Coronary artery disease Herpes zoster Hyperlipidemia Hypertension PAD (peripheral artery disease) ([facility]) 01/21/2022 Prostate cancer ([facility]) Vascular disease Past Surgical History: Procedure Laterality Date 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/08/2018 Procedure: LEFT MIDFOOT AMPUTATION; Surgeon: Flynn Mann DPM; Location: [facility] OR; Service: Podiatry ANKLE SURGERY Left BYPASS PERONEAL FEMORAL Right 09/07/2018 Procedure: BYPASS PERONEAL FEMORAL, RIGHT SAPHENOUS VEIN HARVEST, COMPLETION ANGIOGRAM; Surgeon: Mohsen Sarabia MD; Location: [facility]; Service: Cardiovascular CARDIAC CATHETERIZATION Left 09/05/2018 Procedure: Angio Lower Extremity; Surgeon: Ben Hahn MD; Location: [facility]; Service: Cardiovascular CARDIAC SURGERY 2017 triple bypass EGD N/A 10/10/2018 Procedure: ESOPHAGOGASTRODUODENOSCOPY; Surgeon: Ben Jensen MD; Location: [facility]; Service: Gastroenterology EYE SURGERY Right 2015 [...] and laboratory results reviewed Associated attestation - Monty, Mohsen Grimes MD - 04/15/2022 7:54 AM EDT Patient seen and examined. I have personally reviewed all pertinent labs, radiological studies and records. I have personally examined the patient and agree with resident/FRONT END JAVA DEVELOPER/PA assessment and plan with the following additional [...] done as an outpatient. documented in this [id number] Emergency department Note* Rose Bautista RN - 04/15/2022 12:13 AM EDT Patient moved into hospital bed [id number] Emergency department Note* Rose Bautista RN - 04/15/2022 12:13 AM EDT Patient moved into hospital bed * MIGUE Berumen - 04/14/2022 11:24 PM EDT [facility] to write admission orders [id number]. 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 His primary doctor recommended he present here for evaluation from his vascular surgeon Dr. Sarabia and patient presents here via triage. Patient reports compliance with home medications including anticoagulation with Xarelto and aspirin. 82-year-old male presents to [facility] emergency department chief plaint of right foot [...] time. He will be admitted to the [facility] observation unit. CLINICAL IMPRESSION 1. PAD (peripheral [...] limits BASIC METABOLIC PANEL - Normal Narrative: [facility] Laboratory Services has implemented the eGFR calculation [...] Procedure Abnormality Status --------- ------ CBC Auto Differential[[id number]] Abnormal Final result Please view results for [...] 5. Chronic findings including severe pancolonic diverticulosis. [employer] Workstation ID: [id number] Medications Ordered/Given During ED [...] zoster Hyperlipidemia Hypertension PAD (peripheral artery disease) ([facility]) 01/21/2022 Prostate cancer ([facility]) Vascular disease Past Surgical History Past Surgical History: Procedure Laterality Date 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/08/2018 Procedure: LEFT MIDFOOT AMPUTATION; Surgeon: Flynn Mann DPM; Location: [facility] OR; Service: Podiatry ANKLE SURGERY Left BYPASS PERONEAL FEMORAL Right 09/07/2018 Procedure: BYPASS PERONEAL FEMORAL, RIGHT SAPHENOUS VEIN HARVEST, COMPLETION ANGIOGRAM; Surgeon: Mohsen Sarabia MD; Location: [facility]; Service: Cardiovascular CARDIAC CATHETERIZATION Left 09/05/2018 Procedure: Angio Lower Extremity; Surgeon: Ben Hahn MD; Location: [facility]; Service: Cardiovascular CARDIAC SURGERY 2017 triple bypass EGD N/A 10/10/2018 Procedure: ESOPHAGOGASTRODUODENOSCOPY; Surgeon: Ben Jensen MD; Location: [facility]; Service: Gastroenterology EYE SURGERY Right 2015 [...] portions of this note were created using [employer] voice recognition software.* Carson Brock MD 04/14/22 [id number] * Amairani Bucio RN - 04/14/2022 7:29 PM EDT Patient arrives in a wheelchair with a cc of right leg swelling. The patient was at [facility] and they told him he has a blood clot in the right leg and he needs to come down to [facility] to see hisvascular surgeon that he sees here. documented in this [id number] History and physical note* Jagruti Moore Jr., MD - 04/14/2022 11:51 PM EDT Images from the original note were not included. [facility] History and Physical Note 04/15/22 Tristin Powell 1940 [id number] Assessment/Plan: Tristin Powell is a 82 y.o. male with a history of HTN, HFpEF, PAD with bypass/stenting/amputation, CAD who recently discharged 01/21/22 after cellulitis L ankle who presented to [facility] 04/14/2022 with worsening R leg pain [...] zoster Hyperlipidemia Hypertension PAD (peripheral artery disease) ([facility]) 01/21/2022 Prostate cancer ([facility]) Vascular disease Past Surgical History: Procedure Laterality Date 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/08/2018 Procedure: LEFT MIDFOOT AMPUTATION; Surgeon: Flynn Mann DPM; Location: [facility] OR; Service: Podiatry ANKLE SURGERY Left BYPASS PERONEAL FEMORAL Right 09/07/2018 Procedure: BYPASS PERONEAL FEMORAL, RIGHT SAPHENOUS VEIN HARVEST, COMPLETION ANGIOGRAM; Surgeon: Mohsen Sarabia MD; Location: [facility]; Service: Cardiovascular CARDIAC CATHETERIZATION Left 09/05/2018 Procedure: Angio Lower Extremity; Surgeon: Ben Hahn MD; Location: [facility]; Service: Cardiovascular CARDIAC SURGERY 2017 triple bypass EGD N/A 10/10/2018 Procedure: ESOPHAGOGASTRODUODENOSCOPY; Surgeon: Ben Jensen MD; Location: [facility]; Service: Gastroenterology EYE SURGERY Right 2015 [...] Results Component Value Date INR 1.1 04/14/2022 [id number] History and physical note* Jagruti Moore Jr., MD - 04/14/2022 11:51 PM EDT Images from the original note were not included. [id number] Obs History and Physical Note 04/15/22 Tristin Powell 1940 [id number] Assessment/Plan: Tristin Powell is a 82 y.o. male with a history of HTN, HFpEF, PAD with bypass/stenting/amputation, CAD who recently discharged 01/21/22 after cellulitis L ankle who presented to [facility] 04/14/2022 with worsening R leg pain [...] zoster Hyperlipidemia Hypertension PAD (peripheral artery disease) ([facility]) 01/21/2022 Prostate cancer ([facility]) Vascular disease Past Surgical History: Procedure Laterality Date 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/08/2018 Procedure: LEFT MIDFOOT AMPUTATION; Surgeon: Flynn Mann DPM; Location: [facility] OR; Service: Podiatry ANKLE SURGERY Left BYPASS PERONEAL FEMORAL Right 09/07/2018 Procedure: BYPASS PERONEAL FEMORAL, RIGHT SAPHENOUS VEIN HARVEST, COMPLETION ANGIOGRAM; Surgeon: Mohsen Sarabia MD; Location: [facility]; Service: Cardiovascular CARDIAC CATHETERIZATION Left 09/05/2018 Procedure: Angio Lower Extremity; Surgeon: Ben Hahn MD; Location: [facility]; Service: Cardiovascular CARDIAC SURGERY 2017 triple bypass EGD N/A 10/10/2018 Procedure: ESOPHAGOGASTRODUODENOSCOPY; Surgeon: Ben Jensen MD; Location: [facility]; Service: Gastroenterology EYE SURGERY Right 2015 FOOT [...] Date INR 1.1 04/14/2022 documented in this [id number] Emergency department Note* Terri Avila, MIGUE - 04/14/2022 11:24 PM EDT [facility] to write admission orders [id number]. [id number] Physician Emergency department Note* Carson Brock MD - 04/14/2022 8:24 PM EDT [facility] EMERGENCY DEPARTMENT PCP - Flash Lovelace MD Chief Complaint Patient presents with Leg Swelling HPI MEDICAL DECISION MAKING 82-year-old male presents to [facility] emergency department chief complaint of right leg [...] an ultrasound ordered by his doctor at [facility] with findings concerningfor stenosis to the superficial femoral artery as well as an occlusion of his popliteal artery. His primary doctor recommended he present here for evaluation from his vascular surgeon Dr. Sarabia and patient presents here via triage. Patient reports compliance with home medications including anticoagulation with Xarelto and aspirin. 82-year-old male presents to [facility] emergency department chief plaint of right foot [...] time. He will be admitted to the [facility] observation unit. CLINICAL IMPRESSION 1. PAD (peripheral [...] limits BASIC METABOLIC PANEL - Normal Narrative: [facility] Laboratory Services has implemented the eGFR calculation [...] Procedure Abnormality Status --------- ------ CBC Auto Differential[[id number]] Abnormal Final result Please view results for [...] 5. Chronic findings including severe pancolonic diverticulosis. [employer] Workstation ID: [id number] Medications Ordered/Given During ED [...] -- 81 18 97 % -- -- 04/14/221934 (!) 200/95 98.4 F (36.9 C) Oral [...] Arthritis Avascular necrosis of bone of hip ([facility]) Claudication (HCC) Herpes zoster Hyperlipidemia Hypertension PAD (peripheral artery disease) ([facility]) 01/21/2022 Prostate cancer ([facility]) Vascular disease Past Surgical History Past Surgical History: Procedure Laterality Date 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/08/2018 Procedure: LEFT MIDFOOT AMPUTATION; Surgeon: Flynn Mann DPM; Location: [facility] OR; Service: Podiatry ANKLE SURGERY Left BYPASS PERONEAL FEMORAL Right 09/07/2018 Procedure: BYPASS PERONEAL FEMORAL, RIGHT SAPHENOUS VEIN HARVEST, COMPLETION ANGIOGRAM; Surgeon: Mohsen Sarabia MD; Location: [facility]; Service: Cardiovascular CARDIAC CATHETERIZATION Left 09/05/2018 Procedure: Angio Lower Extremity; Surgeon: Ben Hahn MD; Location: [facility]; Service: Cardiovascular CARDIAC SURGERY 2017 triple bypass EGD N/A 10/10/2018 Procedure: ESOPHAGOGASTRODUODENOSCOPY; Surgeon: Ben Jensen MD; Location: [facility]; Service: Gastroenterology EYE SURGERY Right 2015 [...] portions of this note were created using [employer] voice recognition software.* Carson Brock MD 04/14/22 4521 [facility] Work Phone: [phone]) 640-682608-18-2022 Emergency department Triage note* Amairani Bucio RN - 04/14/2022 7:29 PM EDT Patient arrives in a wheelchair with a cc of right leg swelling. The patient was at [facility] and they told him he has a blood clot in the right leg and he needs to come down to [facility] to see hisvascular surgeon that he sees here. [id number] History of Present illness Narrative* Katie Anna RN - 04/14/2022 5:54 PM EDT Vascular Resident paged twice, awaiting response Dr. Sarabia notified that patient is coming to [facility] ED for further evaluation. 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 He reports [...] MIDFOOT AMPUTATION; Surgeon: Flynn Mann DPM; Location: [facility] OR; Service: Podiatry ANKLE SURGERY Left BYPASS PERONEAL FEMORAL Right 09/07/2018 Procedure: BYPASS PERONEAL FEMORAL, RIGHT SAPHENOUS VEIN HARVEST, COMPLETION ANGIOGRAM; Surgeon: Mohsen Sarabia MD; Location: [facility]; Service: Cardiovascular CARDIAC CATHETERIZATION Left 09/05/2018 Procedure: Angio Lower Extremity; Surgeon: Ben Hahn MD; Location: [facility]; Service: Cardiovascular CARDIAC SURGERY 2017 triple bypass EGD N/A 10/10/2018 Procedure: ESOPHAGOGASTRODUODENOSCOPY; Surgeon: Ben Jensen MD; Location: [facility]; Service: Gastroenterology EYE SURGERY Right 2015 [...] Radiology, Cardiology, and Medications documented in this [id number] History of Present illness Narrative* Alma Delia Page RN - 01/21/2022 2:58 PM EDT This RN went over discharge instructions and prescriptions with the patient. Pt verbalized understanding. All questions were answered. IV was removed. All personal belongings sent home with patient. PT was taken down by wheelchair to [facility] main entrance. * Gustavo Gonzalez DO - 01/21/2022 7:01 AM EDT [facility]22 Tristin Powell 1940 [id number] Assessment/Plan: Tristin Powell is a 82 y.o. male with a history of HTN, CAD, PVD who presented to [facility] 01/18/2022 with progressive left ankle pain, redness, swelling not improved with oral antibiotics. Admit XR non-acute, temp 100.7, CRP 63.5, WBC 6.76, ESR 18. Cultures with no growth to date. LLE Cellulitis: Per chart, hx MRSA in 2018. 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 Admit temp 100.7, has remained afebrile ever since. No leukocytosis. Admit blood cultures NGTD. Admit CTA/runoff with no evidence of deeper infection, LLE graft patent. Continue vancomycin, will plan to transition to PO Bactrim on 01/21.Continue pain control. Recommend outpatient follow-up with [facility] in [place]. Bilateral PAD: Per history. LLE angio w/ [...] Lab Units 01/20/22 0823 01/19/22 0336 01/18/22211601/18/22 2105 SODIUM mmol/L 141 141 -- 138 [...] pancreatic lesion.He will follow up with his environmental auditor and [facility] in [place] to determine if his prothesis could be [...] calcified granulomas. -Solitary lung nodule malignancy risk ([place]) score: 17.6% -Recommend PET as an outpatient and follow up with [facility] closer to home. Possible biopsy iffindings persist. [...] Carson Banks MD 1:01 PM 01/20/22 Pager: [phone] Chief Complaint Chief Complaint Patient presents with [...] and recommend this to be done at [facility] with either Drs. Carson Gallagher or [...] 1200. Pharmacist: Rossana Fernandez RPh,PharmD Contact Number: [phone] ([employer]) or secure chat * Gustavo Gonzalez DO - 01/20/2022 7:01 AM EDT [facility] 01/20/2022 Tristin Powell 1940 [id number] Assessment/Plan: Tristin Powell is a 82 y.o. male with a history of HTN, CAD, PVD who presented to [facility] 01/18/2022 with progressive left ankle pain, redness, swelling not improved with oral antibiotics. Admit XR non-acute, temp 100.7, CRP 63.5, WBC 6.76, ESR 18. LLE Cellulitis: Per chart, hx MRSA in 2019. 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 Admit temp 100.7, has remained afebrile ever since. No leukocytosis. Admit blood cultures NGTD. Admit CTA/runoff with no evidence of deeper infection, LLE graft patent. Continue vancomycin, will plan to transition to PO Bactrim on 01/21.Continue pain control. Recommend outpatient follow-up with [facility] in [place]. Bilateral PAD: Per history. LLE angio w/ [...] mg/dL 8.4 -- 9.2 Associated attestation - Fam, Muna Bhatti MD - 01/20/2022 2:13 PM EDT Attending Attestation (GC) Tristin Powell is a 82 y.o. male with a history of HTN, HFpEF, PAD complicated by Bypass, Stenting, and L Foot Amputation, CAD who presented to [facility] on 01/18/22 with 3-4 days of progressive [...] improving. Discussed he should follow up with [facility] in [place] to further explore if his stump prothesis [...] Rosas MD - 01/19/2022 6:43 AM EDT [facility] 01/19/2022 Tristin Powell 1940 [id number] Assessment/Plan: Tristin Powell is a 82 y.o. male with a history of HTN, CAD, PVD who presented to [facility] 01/18/2022 with progressive left ankle pain, redness, swelling not improved with oral antibiotics. Admit XR non-acute, temp 100.7, CRP 63.5, WBC 6.76, ESR 18. LLE Cellulitis: Per chart, hx MRSA in 2018. 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 Admit temp 100.7. [...] Results from last 7 days Lab Units 01/19/2233501/18/22211601/18/222104 SODIUM mmol/L 141 -- 138 POTASSIUM mmol/L [...] L Foot Amputation, CAD who presented to [facility] on 01/18/22 with 3-4 days of progressive [...] of additional medical problems. * El Owen [facility],PharmD - 01/19/2022 2:14 AM EDT PHARMACOTHERAPY NOTE: [...] urine output (if available) daily.vancomyicin / aminoglycoside recommendations:[id number]:s} Pharmacy will continue to follow, order levels, and make adjustments as needed. Please call pharmacy with questions. Current antibiotic regimen includes: ceftriaxone 2000mg q24h Objective: Ht Readings from Last 1 Encounters: 01/18/22 6' 2 (188 cm) Wt Readings from Last 1 Encounters: 01/18/22 113.4 kg (250 lb) [place] body weight: 82.2 kg (181 lb 3.5 [...] Component Value Units Date/Time Blood Culture Aerobic/Anaerobic [[id number]] (Normal) Collected: 01/18/222104 Order Status: Completed Specimen: Blood, Peripheral Updated: 01/18/222357 Culture In Progress; No Growth to Date Blood Culture Aerobic/Anaerobic [[id number]] (Normal) Collected: 01/18/222104 Order Status: Completed Specimen: Blood, Peripheral Updated: 01/18/222357 Culture In Progress; No Growth to Date Pharmacist: El Owen RPh,PharmD Contact Number: documented in this [id number] Hospital course Narrative* Muna Otto MD - 01/21/2022 2:32 PM EDT Images from the original note were not included. [facility] DISCHARGE SUMMARY Tristin Powell Account: [id number] Admitted: 01/18/2022 PCP: Flash Lovelace MD Discharge [...] L Foot Amputation, CAD who presented to [facility] on 01/18/22 with 3-4 days of progressive [...] lesion. He will follow up with his environmental auditor (Dr. Mann) and [facility] in [place] to determine if his prothesis could be [...] Your Medications These medications were sent to [facility] [id number] - [facility] [address] [facility] [address] [address] [facility] [place] [address] albuterol 2.5 mg /3 mL (0.083 %) nebulizer solution sulfamethoxazole-trimethoprim 800-160 mg per tablet tiotropium bromide 2.5 mcg/actuation Mist Physician(s) Family: Flash Lovelace MD, , Address: [address] [place] [address] / [facility] [address] Follow Up: Flash Lovelace MD [address] [facility] [address] Follow up Carson Gallagher MD [address] [place] [address] [address] [facility] [id number] Follow up Please call to set up appointment to follow up on your lung nodule and newly diagnosed COPD (chronic obstructive pulmonary disease) Flynn Mann DPM [address] [facility] [address] [facility] [phone] Schedule an appointment as soon as possible for a visit Additional Information: Patient seen and examined day of discharge. For more information regarding patient's care, including complete radiology reports, please contact [facility] at Patient instructions, including activity, were given to the patient/family at discharge. Please seethe After Visit Summary in the medical record for details. Time spent on discharge: > 30 minutes Completed by: Muna Otto on 01/21/22, 2:32 PM documented in this [id number] Hospital Discharge instructions * Discharge Instr - AVS First Page* Muna Otto MD - 01/21/2022 11:26 AM EDT Dear Mr. Powell, You came to [facility] for left ankle pain, redness, and [...] PCP to discuss further pancreatic workup - [facility] in [place], [place] to discuss your prosthetics. Thank you for letting us be a part of your care team, [facility] * Attachments The following attachments cannot be sent through Care Everywhere. * Cellulitis ([place]ese) * Pulmonary Nodules: General Info ([place]) documented in this [id number] Consult note* Leeanna Melgoza, OT - 01/21/2022 [...] deficit. 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 [...] Function Receives Help From: Family Level of [place] - Transfers/Ambulation/Mobility: Independent with functional transfers, Independent with household ambulation, Independent with community ambulation Level of [place] - ADLs: Independent Level of [place] - Homemaking: Independent Driving: Patient drives Vocational: [...] MIDFOOT AMPUTATION; Surgeon: Flynn Mann DPM; Location: [facility]; Service: Podiatry ANKLE SURGERY Left BYPASS PERONEAL FEMORAL Right 09/07/2018 Procedure: BYPASS PERONEAL FEMORAL, RIGHT SAPHENOUS VEIN HARVEST, COMPLETION ANGIOGRAM; Surgeon: Mohsen Sarabia MD; Location: [facility]; Service: Cardiovascular CARDIAC CATHETERIZATION Left 09/05/2018 Procedure: Angio Lower Extremity; Surgeon: Ben Hahn MD; Location: [facility]; Service: Cardiovascular CARDIAC SURGERY 2017 triple bypass EGD N/A 10/10/2018 Procedure: ESOPHAGOGASTRODUODENOSCOPY; Surgeon: Ben Jensen MD; Location: [facility]; Service: Gastroenterology EYE SURGERY Right 2015 [...] completion of Occupational Therapy Plan of Care. [id number] Consult note* Leeanna Melgoza OT - 01/21/2022 [...] deficit. 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 [...] Function Receives Help From: Family Level of [place] - Transfers/Ambulation/Mobility: Independent with functional transfers, Independent with household ambulation, Independent with community ambulation Level of [place] - ADLs: Independent Level of [place] - Homemaking: Independent Driving: Patient drives Vocational: [...] MIDFOOT AMPUTATION; Surgeon: Flynn Mann DPM; Location: [facility]; Service: Podiatry ANKLE SURGERY Left BYPASS PERONEAL FEMORAL Right 09/07/2018 Procedure: BYPASS PERONEAL FEMORAL, RIGHT SAPHENOUS VEIN HARVEST, COMPLETION ANGIOGRAM; Surgeon: Mohsen Sarabia MD; Location: [facility]; Service: Cardiovascular CARDIAC CATHETERIZATION Left 09/05/2018 Procedure: Angio Lower Extremity; Surgeon: Ben Hahn MD; Location: [facility]; Service: Cardiovascular CARDIAC SURGERY 2017 triple bypass EGD N/A 10/10/2018 Procedure: ESOPHAGOGASTRODUODENOSCOPY; Surgeon: Ben Jensen MD; Location: [facility]; Service: Gastroenterology EYE SURGERY Right 2015 [...] Contact guard assist (when in stand-scoot posture.) Pump House Operator - Standing Dynamic: BUE (wheelchair; and NWB on LLE.) Loss of Balance- Standing Dynamic: intermittent Bed Mobility Rolling: Modified independent Supine to Sit: Modified independent Sit to Supine: Modified independent Pump House Operator: bedrails, bed positioning mechanics Transfers Squat Pivot Transfers: Stand by assist, Contact guard assist Pump House Operator: wheelchair Additional Transfer Trial 2: Yes Squat Pivot Transfers Trial 2: Stand by assist, Contact guard assist Pump House Operator Trial 2: wheeled walker Gait/Locomotion Wheelchair Mobility: [...] baseline. Prior Level of Function Level of [place] - Transfers/Ambulation/Mobility: Independent with functional transfers, Independent with household ambulation Level of [place] - ADLs: Independent Subjective Impression - Prior [...] MIDFOOT AMPUTATION; Surgeon: Flynn Mann DPM; Location: [facility]; Service: Podiatry ANKLE SURGERY Left BYPASS PERONEAL FEMORAL Right 09/07/2018 Procedure: BYPASS PERONEAL FEMORAL, RIGHT SAPHENOUS VEIN HARVEST, COMPLETION ANGIOGRAM; Surgeon: Mohsen Sarabia MD; Location: [facility]; Service: Cardiovascular CARDIAC CATHETERIZATION Left 09/05/2018 Procedure: Angio Lower Extremity; Surgeon: Ben Hahn MD; Location: [facility]; Service: Cardiovascular CARDIAC SURGERY 2017 triple bypass EGD N/A 10/10/2018 Procedure: ESOPHAGOGASTRODUODENOSCOPY; Surgeon: Ben Jensen MD; Location: [facility]; Service: Gastroenterology EYE SURGERY Right 2015 [...] as an outpatient and follow up with [facility] closer to home. Possible biopsy iffindings persist. [...] Ngoc Banks MD Preliminary Medicine PGY1 Pager: [phone] Reason for Consultation: Suspicious Pulm nodule with [...] dust over the years while working in [employer]. Denies recent weight loss. Notes a few [...] MIDFOOT AMPUTATION; Surgeon: Flynn Mann DPM; Location: [facility]; Service: Podiatry ANKLE SURGERY Left BYPASS PERONEAL FEMORAL Right 09/07/2018 Procedure: BYPASS PERONEAL FEMORAL, RIGHT SAPHENOUS VEIN HARVEST, COMPLETION ANGIOGRAM; Surgeon: Mohsen Sarabia MD; Location: [facility]; Service: Cardiovascular CARDIAC CATHETERIZATION Left 09/05/2018 Procedure: Angio Lower Extremity; Surgeon: Ben Hahn MD; Location: [facility]; Service: Cardiovascular CARDIAC SURGERY 2017 triple bypass EGD N/A 10/10/2018 Procedure: ESOPHAGOGASTRODUODENOSCOPY; Surgeon: Ben Jensen MD; Location: [facility]; Service: Gastroenterology EYE SURGERY Right 2015 FOOT [...] data reviewed No results for input(s): PHART, UCX4MKC, PO2ART, B3PWQEHP, RESPRATE, TIDALVOL, PEEP, C2VSHIEX in the last 72 hours. Recent Labs [...] and recommend this to be done at [facility] with either Drs. 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 Prior Level of Function Level of [place] - Transfers/Ambulation/Mobility: Independent with functional transfers, Independent with household ambulation Level of [place] - ADLs: Independent Subjective Impression - Prior [...] MIDFOOT AMPUTATION; Surgeon: Flynn Mann DPM; Location: [facility]; Service: Podiatry ANKLE SURGERY Left BYPASS PERONEAL FEMORAL Right 09/07/2018 Procedure: BYPASS PERONEAL FEMORAL, RIGHT SAPHENOUS VEIN HARVEST, COMPLETION ANGIOGRAM; Surgeon: Mohsen Sarabia MD; Location: [facility]; Service: Cardiovascular CARDIAC CATHETERIZATION Left 09/05/2018 Procedure: Angio Lower Extremity; Surgeon: Ben Hahn MD; Location: [facility]; Service: Cardiovascular CARDIAC SURGERY 2017 triple bypass EGD N/A 10/10/2018 Procedure: ESOPHAGOGASTRODUODENOSCOPY; Surgeon: Ben Jensen MD; Location: [facility]; Service: Gastroenterology EYE SURGERY Right 2015 [...] hospital or completion of Physical Therapy Plan. [id number] Note* Sign Off Note - David Christy MD - 01/20/2022 12:38 PM EDT Pulmonary Medicine Sign-Off Medications: Bronchodilators: Recommend initiating Spiriva with PRN Albuterol on dsicharge Home Respiratory Equipment: N/A Follow-up: Imaging: Follow up PET/CT Scan KAJAL in outpatient setting. Please set up at [facility] with Dr Carson Cm or Wagner Moon with referral Pulmonary Function Testing: For diagnosis of COPD Patient with suspicious lung nodule and severe emphysema changes. Also uses Afrin, this should be limited to 2-3 days use at most at a time. Please call with questions David Christy M.D. Internal Medicine PGY-3 Pager: [phone] [facility] Work Phone: [phone] Miscellaneous Notes* Sign Off Note - David Christy MD - 01/20/2022 12:38 PM EDT Pulmonary Medicine Sign-Off Medications: Bronchodilators: Recommend initiating Spiriva with PRN Albuterol on dsicharge Home Respiratory Equipment: N/A Follow-up: Imaging: Follow up PET/CT Scan KAJAL in outpatient setting. Please set up at [facility] with Dr Carson Cm or Wagner Moon with referral Pulmonary Function Testing: For diagnosis of COPD Patient with suspicious lung nodule and severe emphysema changes. Also uses Afrin, this should be limited to 2-3 days use at most at a time. Please call with questions David Christy M.D. Internal Medicine PGY-3 Pager: [phone] * ED Procedure Note - Mikey Mcguire [...] and Critical Limb consultation. documented in this [id number] Consult note* Carson Banks MD - 01/19/2022 [...] calcified granulomas. -Solitary lung nodule malignancy risk ([place]) score: 17.6% -Recommend PET as an outpatient and follow up with [facility] closer to home. Possible biopsy iffindings persist. [...] Ngoc Banks MD Preliminary Medicine PGY1 Pager: [phone] Reason for Consultation: Suspicious Pulm nodule with [...] dust over the years while working in [employer]. Denies recent weight loss. Notes a few [...] MIDFOOT AMPUTATION; Surgeon: Flynn Mann DPM; Location: [facility]; Service: Podiatry ANKLE SURGERY Left BYPASS PERONEAL FEMORAL Right 09/07/2018 Procedure: BYPASS PERONEAL FEMORAL, RIGHT SAPHENOUS VEIN HARVEST, COMPLETION ANGIOGRAM; Surgeon: Mohsen Sarabia MD; Location: [facility]; Service: Cardiovascular CARDIAC CATHETERIZATION Left 09/05/2018 Procedure: Angio Lower Extremity; Surgeon: Ben Hahn MD; Location: [facility]; Service: Cardiovascular CARDIAC SURGERY 2017 triple bypass EGD N/A 10/10/2018 Procedure: ESOPHAGOGASTRODUODENOSCOPY; Surgeon: Ben Jensen MD; Location: [facility]; Service: Gastroenterology EYE SURGERY Right 2015 [...] data reviewed No results for input(s): PHART, WLV7IVY, PO2ART, M2VKEYWO, RESPRATE, TIDALVOL, PEEP, G4DOYWJG in the last 72 hours. 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 Carson Gallagher or [...] Pulmonary and Critical Care Medicine 5:26 PM 05/25/22 [id number] Emergency department Note* Violetta Stuart RN - 01/19/2022 2:35 PM EDT Patient provided with warm blanket and coffee. Denies any further needs at this time, visitor at bedside. [id number] Emergency department Note* Violetta Stuart RN - [...] Med one to write orders for admission [phone]...checkout complete * Amy Ojeda PA-C - 01/18/2022 11:14 PM EDT Images from the original note were not included. ED PROVIDER NOTE [facility] EMERGENCY DEPARTMENT NAME: Tristin Powell AGE: 82 y.o. : 1940 VISIT DATE: 01/18/2022 [facility]: [id number] PCP: Flash Lovelace MD Chief Complaint Patient [...] MIDFOOT AMPUTATION; Surgeon: Flynn Mann DPM; Location: [facility]; Service: Podiatry ANKLE SURGERY Left BYPASS PERONEAL FEMORAL Right 09/07/2018 Procedure: BYPASS PERONEAL FEMORAL, RIGHT SAPHENOUS VEIN HARVEST, COMPLETION ANGIOGRAM; Surgeon: Mohsen Sarabia MD; Location: [facility]; Service: Cardiovascular CARDIAC CATHETERIZATION Left 09/05/2018 Procedure: Angio Lower Extremity; Surgeon: Ben Hahn MD; Location: [facility]; Service: Cardiovascular CARDIAC SURGERY 2017 triple bypass EGD N/A 10/10/2018 Procedure: ESOPHAGOGASTRODUODENOSCOPY; Surgeon: Ben Jensen MD; Location: [facility]; Service: Gastroenterology EYE SURGERY Right 2015 [...] states he's nauseous, chills documented in this [id number] Emergency department Note* Violetta Stuart RN - 01/19/2022 1:15 PM EDT Patient provided with lunch tray. [id number] Emergency department Note* Maude Vallejo RN - 01/19/2022 10:13 AM EDT patient visited at this time. comfort needs addressed. updated on plan of care. MEAL TRAY DELIVERED AT THIS TIME [id number] History and physical note* Rodri Back DO - 01/18/2022 11:54 PM EDT Images from the original note were not included. [facility] History and Physical Note 01/19/22 Tristin Powell 1940 [id number] Assessment/Plan: Tristin Powell is a 82 y.o. male with a history of HTN, CAD, PVD who presented to [facility] 01/18/2022 with progressive left ankle pain, redness, swelling not improved with oral antibiotics. Admit XR non-acute, temp 100.7, CRP 63.5, WBC 6.76, ESR 18. LLE Cellulitis: Per chart, hx MRSA in 2018. 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 Admit temp 100.7. [...] of HTN, CAD, PVD who presented to [facility] 01/18/2022 with progressive left ankle pain, redness, [...] MIDFOOT AMPUTATION; Surgeon: Flynn Mann DPM; Location: [facility]; Service: Podiatry ANKLE SURGERY Left BYPASS PERONEAL FEMORAL Right 09/07/2018 Procedure: BYPASS PERONEAL FEMORAL, RIGHT SAPHENOUS VEIN HARVEST, COMPLETION ANGIOGRAM; Surgeon: Mohsen Sarabia MD; Location: [facility]; Service: Cardiovascular CARDIAC CATHETERIZATION Left 09/05/2018 Procedure: Angio Lower Extremity; Surgeon: Ben Hahn MD; Location: [facility]; Service: Cardiovascular CARDIAC SURGERY 2017 triple bypass EGD N/A 10/10/2018 Procedure: ESOPHAGOGASTRODUODENOSCOPY; Surgeon: Ben Jensen MD; Location: [facility]; Service: Gastroenterology EYE SURGERY Right 2015 [...] mg/dL -- 107* CALCIUM mg/dL -- 9.2 [id number] History and physical note* Rodritang Back, DO - 01/18/2022 11:54 PM EDT Images from the original note were not included. [facility] History and Physical Note 01/19/22 Tristin Powell 1940 [id number] Assessment/Plan: Tristin Powell is a 82 y.o. male with a history of HTN, CAD, PVD who presented to [facility] 01/18/2022 with progressive left ankle pain, redness, swelling not improved with oral antibiotics. Admit XR non-acute, temp 100.7, CRP 63.5, WBC 6.76, ESR 18. LLE Cellulitis: Per chart, hx MRSA in 2018. 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 Admit temp 100.7. [...] of HTN, CAD, PVD who presented to [facility] 01/18/2022 with progressive left ankle pain, redness, [...] MIDFOOT AMPUTATION; Surgeon: Flynn Mann DPM; Location: [facility]; Service: Podiatry ANKLE SURGERY Left BYPASS PERONEAL FEMORAL Right 09/07/2018 Procedure: BYPASS PERONEAL FEMORAL, RIGHT SAPHENOUS VEIN HARVEST, COMPLETION ANGIOGRAM; Surgeon: Mohsen Sarabia MD; Location: [facility]; Service: Cardiovascular CARDIAC CATHETERIZATION Left 09/05/2018 Procedure: Angio Lower Extremity; Surgeon: Ben Hahn MD; Location: [facility]; Service: Cardiovascular CARDIAC SURGERY 2017 triple bypass EGD N/A 10/10/2018 Procedure: ESOPHAGOGASTRODUODENOSCOPY; Surgeon: Ben Jensen MD; Location: [facility]; Service: Gastroenterology EYE SURGERY Right 2015 [...] CALCIUM mg/dL -- 9.2 documented in this [id number] Emergency department Note* Richie Vallecillo - 01/18/2022 11:29 PM EDT Med one to write orders for admission [phone]...checkout complete [id number] Note* ED Procedure Note - Mikey Mcguire MD - 01/18/2022 11:27 PM EDTAssociated Order(s): ECG 12 Lead ECG 12 Lead Date/Time: 01/18/2022 11:27 PM Performed by: Mikey Mcguire MD Authorized by: Mikey Mcguire MD Interpreted by ED attending physician Rhythm: sinus rhythm BPM: 76 Ectopy: PVCs Conduction: conduction normal ST Segments: ST segments normal T Waves: T waves normal Clinical impression: non-specific ECG [facility] Work Phone: [phone] Physician Emergency department Note* Amy Ojeda PA-C - 01/18/2022 11:14 PM EDT Images from the original note were not included. ED PROVIDER NOTE [facility] EMERGENCY DEPARTMENT NAME: Tristin Powell AGE: 82 y.o. : 1940 VISIT DATE: 01/18/2022 CSN: [id number] PCP: Flash Lovelace MD Chief Complaint Patient [...] MIDFOOT AMPUTATION; Surgeon: Flynn Mann DPM; Location: [facility]; Service: Podiatry ANKLE SURGERY Left BYPASS PERONEAL FEMORAL Right 09/07/2018 Procedure: BYPASS PERONEAL FEMORAL, RIGHT SAPHENOUS VEIN HARVEST, COMPLETION ANGIOGRAM; Surgeon: Mohsen Sarabia MD; Location: [facility]; Service: Cardiovascular CARDIAC CATHETERIZATION Left 09/05/2018 Procedure: Angio Lower Extremity; Surgeon: Ben Hahn MD; Location: [facility]; Service: Cardiovascular CARDIAC SURGERY 2017 triple bypass EGD N/A 10/10/2018 Procedure: ESOPHAGOGASTRODUODENOSCOPY; Surgeon: Ben Jensen MD; Location: [facility]; Service: Gastroenterology EYE SURGERY Right 2015 [...] EC tablet 01/19/2022 Class: Historical Med Amy Oscar Holthaus, PA-C 01/19/22 0028 [facility] Work Phone: [phone] Note* ED Attestation Note - Mikey Mcguire [...] for IV antibiotics and Critical Limb consultation. [id number] Emergency department Triage note* Gregory Alvarado LPN - 01/18/2022 8:37 PM EDT Pt arrives to the ED with c/o redness and swelling to left amputated foot. Redness and swelling noted a couple days ago. Pt states he's nauseous, chills [id number] History of Present illness Narrative* Katie Anna RN - 01/18/2022 4:21 PM EDT Received progress note and images of left lower extremity dated 01-18-[address] Flash Webb. See scanned document in Media. documented in this [id number] History of Present illness Narrative* Светлана Briones [...] 9:08 AM Patient: Tristin Powell . MR#: [id number] : 1940 Age: 82 y.o. Referring Physician: Self, Self Insurance: Payor: MEDICARE [employer] HMO PPO / Plan: MEDICARE [employer] PPO / Product Type: *No Product type* [...] 9:08 AM Patient: Tristin Powell . MR#: [id number] : 1940 Age: 82 y.o. Referring Physician: [...] has No Known Allergies. documented in this [facility]05-03-2022 History of Present illness Narrative* Ileana Kang [...] 10/08/2018 Arrhythmia 10/08/2018 Asthma 10/08/2018 Atrial fibrillation ([facility]) 10/08/2018 Back pain 10/08/2018 Bladder problem 10/08/2018 Bleeding disorder (HCC) 10/08/2018 Cataract 10/08/2018 CHF (congestive heart failure) (HCC) 10/08/2018 Cholelithiasis 10/08/2018 Chronic kidney disease (CKD) 10/08/2018 Chronic pain disorder 10/08/2018 Clostridium difficile infection 10/08/2018 Complication of anesthesia 10/08/2018 COPD (chronic obstructive pulmonary disease) (HCC) 10/08/2018 Crohn's disease (HCC) 10/08/2018 Deep vein thrombosis (HCC) 10/08/2018 Dermatitis 10/08/2018 Diabetes mellitus type I (HCC) 10/08/2018 Diabetes mellitus, type 2 (HCC) 10/08/2018 Diverticulosis 10/08/2018 Emphysema of lung ([facility]) 10/08/2018 Fibromyalgia, primary 10/08/2018 Hard to intubate 10/08/2018 Headache 10/08/2018 HIV disease ([facility]) 10/08/2018 Infectious viral hepatitis 10/08/2018 MRSA (methicillin resistant Staphylococcus aureus) 10/08/2018 Neck pain 10/08/2018 Nephrolithiasis 10/08/2018 Osteoporosis 10/08/2018 Overactive bladder 10/08/2018 PAD (peripheral artery disease) ([facility]) 10/08/2018 Parkinson's disease ([facility]) 10/08/2018 Peripheral neuropathy 10/08/2018 Postoperative retention of urine 10/08/2018 Problem with Qureshi catheter (HCC) 10/08/2018 Rheumatoid arthritis (HCC) 10/08/2018 Seizures ([facility]) 10/08/2018 Sleep apnea, obstructive 10/08/2018 Stroke ([facility]) 10/08/2018 Thrombophlebitis 10/08/2018 TIA (transient ischemic attack) [...] Ileana Kang DO 12/28/2021 documented in this [id number] History of Present illness Narrative* Hill Marquez LPN - 11/24/2021 9:50 AM EDT Ortho Nurse - Established Patient Intake Room#: 2 4 month Right SHANNON D/A, about 10 days ago for no reason he started having radiating pain upto an 8, no pain when sitting, was doing fine before this Date: 11/24/2021 9:46 AM Patient: Tristin Powell Sr. MR#: [id number] : 1940 Age: 81 y.o. Referring Physician: [...] Laterality: N/A; Surgeon: Isaias Vogt MD; Location: [facility] CORONARY STENT PLACEMENT 2007 [...] 9:46 AM Patient: Tristin Powell . MR#: [id number] : 1940 Age: 81 y.o. Referring Physician: [...] Laterality: Right; Surgeon: Dashawn Silvestre MD; Location: [facility] PERIPHERAL ANGIOPLASTY N/A 08/09/2018 Laterality: N/A; Surgeon: Isaias Vogt MD; Location: [facility] CATH/EP LAB PERIPHERAL STENT PLACEMENT N/A 08/09/2018 Laterality: N/A; Surgeon: Isaias Vogt MD; Location: [facility]EP [facility] ATHERECTOMY PERIPHERAL N/A 08/09/2018 Laterality: N/A; Surgeon: Isaias Vogt MD; Location: [facility] CATH/EP LAB CORONARY STENT PLACEMENT 2008 x3 total of 7 AMPUTATION front of [...] has No Known Allergies. [facility] No data available for this section [facility] evaluation + Plan note Future Appointments Appointment Date:12/26/2023 01:00:00 PM Scheduled Provider:BRENNA MOSQUERA PA-C Location:[facility] Appointment Type:URO Office Visit Diagnostic Tests Pending * PSA Total 12/20/22 [facility] evaluation note* Diagnosis Bilateral carotid artery stenosis- Primary Occlusion and stenosis of carotid artery without mention of cerebral infarction PAD (peripheral artery disease) ([facility]) Unspecified peripheral vascular disease [facility] Diagnosis PAD (peripheral artery disease) (HCC)- Primary Unspecified peripheral vascular disease [facility] Diagnosis Pain in prosthetic joint, subsequent encounter- Primary [facility]* Diagnosis Actinic keratosis- Primary SK (seborrheic keratosis) Other seborrheic keratosis Inflamed seborrheic keratosis Skin tenderness Disturbance of skin sensation Xerosis cutis Other specified disease of sebaceous glands [facility]* Diagnosis Hx of total hip arthroplasty, right- Primary [facility] Diagnosis Cellulitis- Primary Cellulitis and [...] [facility]: Evaluation note* Diagnosis Bilateral carotid artery stenosis- Primary Occlusion and stenosis of carotid artery without mention of cerebral infarction [facility]* Diagnosis Hx of total hip arthroplasty, right- Primary [facility] Diagnosis Chronic obstructive pulmonary disease, unspecified [...] arthroplasty, right- Primary [facility] Diagnosis Phantom limb pain (CMS/HCC)- Primary [...] spondylosis without myelopathy [facility] Ischemic foot- Primary PAD (peripheral artery disease) (HCC) Unspecified peripheral vascular disease Critical lower limb ischemia (HCC) Unspecified circulatory system disorder Critical lower limb ischemia (HCC) Unspecified circulatory system disorder Coronary artery disease involving coronary bypass graft of [place] heart without angina pectoris Hypercholesteremia Pure hypercholesterolemia [...] peripheral vascular disease PVD (peripheral vascular disease) (HCC)- Primary Unspecified peripheral vascular disease [facility] Diagnosis Phantom limb pain (CMS/HCC)- Primary [...] spondylosis without myelopathy [facility]* Diagnosis Community acquired pneumonia of left lung, unspecified part of lung- Primary COPD exacerbation (HCC) Obstructive chronic bronchitis with exacerbation documented in this encounter [facility] Phone: evaluation note* Diagnosis Community acquired pneumonia of left lung, unspecified part of lung- Primary COPD exacerbation (HCC) Obstructive chronic bronchitis with exacerbation documented in this encounter [employer] Phone: evaluation note* Diagnosis Phantom limb pain [...] (CMS/HCC) PVD (peripheral vascular disease) with claudication ([facility]/HCC) Unspecified peripheral vascular disease Seasonal allergic rhinitis [...] Phantom limb (syndrome) documented in this [facility]* Diagnosis Medicare annual wellness visit, [...] of cardiac valve disease unspecified Atherosclerosis of [place] coronary artery of [place] heart without angina pectoris (CMS/HCC) Benign essential [...] amputation of left foot (CMS/HCC) Atherosclerosis of [place] arteries of extremities with rest pain, unspecified extremity (CMS/HCC) Pulmonary hypertension, unspecified (CMS/HCC) documented in this encounter [facility]* Diagnosis Chest pain in adult- Primary Lumbosacral spondylosis 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) Seasonal allergic rhinitis due to pollen documented [facility]* [...] spondylosis without myelopathy documented in this encounter [facility]* Diagnosis Phantom limb pain [...] spondylosis without myelopathy documented in this encounter [facility]* Diagnosis Phantom limb pain [...] Chronic diastolic (congestive) heart failure Atherosclerosis of [place] arteries of extremities with rest pain, [...] disease (HCC) (CMS/HCC) documented in this encounter [facility]* Diagnosis Phantom limb pain [...] Chronic diastolic (congestive) heart failure Atherosclerosis of [place] arteries of extremities with rest pain, [...] spondylosis without myelopathy documented in this encounter [facility]* Diagnosis Phantom limb [...] Chronic diastolic (congestive) heart failure Atherosclerosis of [place] arteries of extremities with rest pain, [...] Chronic diastolic (congestive) heart failure Atherosclerosis of [place] arteries of extremities with rest pain, [...] sciatica, unspecified chronicity documented in this encounter [facility]* Diagnosis Phantom limb pain [...] diastolic (congestive) heart failure (HCC) Atherosclerosis of [place] arteries of extremities with rest pain, [...] spondylosis without myelopathy [facility] Diagnosis Ischemic foot- Primary PAD (peripheral artery disease) (HCC) Unspecified peripheral vascular disease Critical lower limb ischemia (HCC) Unspecified circulatory system disorder Critical lower limb ischemia (HCC) Unspecified circulatory system disorder Coronary artery disease involving coronary bypass graft of [place] heart without angina pectoris Hypercholesteremia Pure hypercholesterolemia [...] peripheral vascular disease [facility] Diagnosis Ischemic foot- Primary PAD (peripheral artery disease) (HCC) Unspecified peripheral vascular disease Critical lower limb ischemia (HCC) Unspecified circulatory system disorder Critical lower limb ischemia (HCC) Unspecified circulatory system disorder Coronary artery disease involving coronary bypass graft of [place] heart without angina pectoris Hypercholesteremia Pure hypercholesterolemia [...] lower extremity- Primary [facility]* Diagnosis Ischemic foot- Primary PAD (peripheral [...] artery disease involving coronary bypass graft of [place] heart without angina pectoris Critical lower limb ischemia (HCC) Unspecified circulatory system disorder Critical lower limb ischemia (HCC) Unspecified circulatory system disorder Coronary artery disease involving coronary bypass graft of [place] heart without angina pectoris Carotid stenosis, asymptomatic, bilateral documented [facility] this encounter [facility] Diagnosis Phantom limb pain (HCC)- Primary [...] diastolic (congestive) heart failure (HCC) Atherosclerosis of [place] arteries of extremities with rest pain, [...] prostate Urinary hesitancy documented in this encounter [facility]* Diagnosis Ischemic foot- [...] artery disease involving coronary bypass graft of [place] heart without angina pectoris Critical lower limb ischemia (HCC) Unspecified circulatory system disorder Critical lower limb ischemia (HCC) Unspecified circulatory system disorder Coronary artery disease involving coronary bypass graft of [place] heart without angina pectoris Carotid stenosis, asymptomatic, bilateral Critical lower limb ischemia (HCC)- Primary Unspecified circulatory system disorder [facility]* Diagnosis Phantom limb pain (HCC)- Primary [...] diastolic (congestive) heart failure (HCC) Atherosclerosis of [place] arteries of extremities with rest pain, [...] layer exposed (HCC) documented [facility]* [...] diastolic (congestive) heart failure (HCC) Atherosclerosis of [place] arteries of extremities with rest pain, [...] unspecified type (HCC) documented in this encounter [facility]* Diagnosis Phantom limb pain [...] diastolic (congestive) heart failure (HCC) Atherosclerosis of [place] arteries of extremities with rest pain, [...] vomiting type- Primary documented in this encounter [facility]* Diagnosis Ischemic foot- [...] artery disease involving coronary bypass graft of [place] heart without angina pectoris Critical lower limb ischemia (HCC) Unspecified circulatory system disorder Critical lower limb ischemia (HCC) Unspecified circulatory system disorder Coronary artery disease involving coronary bypass graft of [place] heart without angina pectoris Carotid stenosis, asymptomatic, bilateral Critical lower limb ischemia (HCC)- Primary Unspecified circulatory system disorder [facility]* Diagnosis Phantom limb pain (HCC)- Primary [...] diastolic (congestive) heart failure (HCC) Atherosclerosis of [place] arteries of extremities with rest pain, [...] unspecified location- Primary documented in this encounter [facility]* Diagnosis Phantom limb pain [...] diastolic (congestive) heart failure (HCC) Atherosclerosis of [place] arteries of extremities with rest pain, [...] left leg and was initially treated in [place]. When he was offered left above-knee amputation he got a second opinion in [place] and had a bypass on his left [...] LEFT METARSAL AMPUTATION Hospitalization History See Above [facility] Other Hospital Discharge instructions No data available for this section [facility] Hospital Discharge instructions* Attachments The following attachments cannot be sent through Care Everywhere. * Pneumonia ([place]) [facility] Work Phone: Hospital Discharge instructions* Attachments The following attachments cannot be sent through Care Everywhere. * Pneumonia ([place]) [facility] Work [facility]: Hospital Discharge instructions Additional Instructions [...] hours. CALL [name at #] OR [facility] AT [phone]: -If excessive bleeding should occur from the [...] Metformin, PrandiMet, Riomet.] FOLLOW UP/OTHER INSTRUCTIONS [ ][facility] Work Phone: Progress note No data available for this section [facility] reason for referral (narrative)No reason for referral information availableM[facility] Work Phone: Summary Purpose Family History [...] Documents on File Type Date Recorded Patient Maternal Child Nurse Expl anation Advance Directives and Living Will 03/18/2019 9:27 AM LW only Power of Medical Assistant Cardiology 10/13/2018 9:03 PM RECEI SKIP 10/13/2018 Documents on File Type Date Recorded Patient Maternal Child Nurse Expl anation Advance Directives and Living Will 03/18/2019 9:27 AM LW only Power of Medical Assistant Cardiology 10/13/2018 9:03 PM RECEI SKIP 10/13/2018 Documents on File Type Date Recorded Patient Maternal Child Nurse Expl anation Advance Directives and Living Will 10/21/2019 1:25 PM LW only Power of Medical Assistant Cardiology 10/13/2018 9:03 PM RECEI SKIP 10/13/2018 Documents on File Type Date Recorded Patient Maternal Child Nurse Expl anation Advance Directives and Living Will 10/21/2019 1:25 PM LW only Power of Medical Assistant Cardiology 10/13/2018 9:03 PM RECEI SKIP 10/13/2018 Documents on File Type Date Recorded Patient Maternal Child Nurse Expl anation Advance Directives and Living Will 03/13/2019 10:08 AM LW only Power of Medical Assistant Cardiology 10/13/2018 9:03 PM RECEI SKIP 10/13/2018 Documents on File Type Date Recorded Patient Maternal Child Nurse Expl anation Advance Directives and Living Will 03/13/2019 10:08 AM LW only Power of Medical Assistant Cardiology 10/13/2018 9:03 PM RECEI SKIP 10/13/2018 Latest Code Status on File Code Status Date Activated Date Inactivated Comments Full Code 07/15/2021 2:40 PM Full Code 09/03/2018 11:29 AM 07/15/2021 2:40 PM Full Code 09/01/2011 7:48 AM 09/04/2011 4:13 PM Documents on File Type Date Recorded Patient Maternal Child Nurse Expl anation Power of Medical Assistant Cardiology 10/13/2018 9:03 PM RECEI SKIP 10/13/2018 Documents on File Type Date Recorded Patient Maternal Child Nurse Expl anation Power of Medical Assistant Cardiology 10/13/2018 9:03 PM RECEI SKIP 10/13/2018 Latest [...] Procedures Referred By Contact Referred To Contact [facility] Diagnoses Ischemic foot Critical lower limb ischemia Rojelio Woody MD [address] [facility] [address] [place] [address] Status Reason Specialty Diagnoses / Procedures Referred By Contact Referred To Contact Pending Review Cardiology Diagnoses 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) S/P bypass graft of extremity Procedures US Doppler ankle/brachial index Segmental doppler lower extremity arterial Mohsen Sarabia MD [address] [place] [address] [address] [place] [address] Status Reason Specialty Diagnoses / Procedures Referred By Contact Referred To Contact Pending Review Cardiology Diagnoses Bilateral carotid artery stenosis Procedures Carotid Duplex Mohsen Sarabia MD [address] [place] [address] [address] [place] [address] Status Reason Specialty Diagnoses / Procedures Referred By Contact Referred To Contact Pending Review Cardiology Diagnoses Atherosclerosis of [place] arteries of the extremities with ulceration (HCC) S/P bypass graft of extremity Procedures Ultrasound ankle / brachial indices extremity complete Mohsen Sarabia MD [address] [place] [address] [place] [address] Status Reason Specialty Diagnoses / Procedures Referre d By Contact Referred To Contact Closed Radiology Diagnoses S/P bypass graft of extremity PAD (peripheral artery disease) (HCC) Atherosclerosis of [place] arteries of the extremities with ulceration (HCC) Procedures CT Angiogram Abdominal Aorta With Lower Extremity Mohsen Sarabia MD [address] [place] [address] [address] [place] [address] Status Reason Specialty Diagnoses / Procedures Referred By Contact Referred To Contact Closed Cardiology Diagnoses Bilateral carotid artery stenosis Procedures Carotid Duplex Mohsen Sarabia MD [address] [place] [address] [address] [place] [address] Status Reason Specialty Diagnoses / Procedures Referre d By Contact Referred To Contact Closed Cardiology Diagnoses Atherosclerosis of [place] arteries of the extremities with ulceration (HCC) Procedures Ultrasound ankle / brachial indices extremity complete Mohsen Sarabia MD [address] [place] [address] [address] [place] [address] Status Reason Specialty Diagnoses / Procedures Referred By Contact Referred To Contact Pending Review Cardiology Diagnoses Atherosclerosis of [place] artery of left lower extremity with rest pain (HCC) S/P bypass graft of extremity Procedures Ultrasound duplex arterial leg left Mohsen Sarabia MD [address] [place] [address] Status Reason Specialty Diagnoses / Procedures Referred By Contact Referred To Contact Authorized Cardiology Diagnoses Bilateral carotid artery stenosis Procedures Carotid Duplex Mohsen Sarabia MD [address] [place] [address] Status Reason Specialty Diagnoses / Procedures Referred By Contact Referred To Contact Authorized Cardiology Diagnoses PAD (peripheral artery disease) ([facility]) Procedures Ultrasound ankle / brachial indices extremity complete Mohsen Sarabia MD [address] [place] [address] Status Reason Specialty Diagnoses / Procedures Referred By Contact Referred To Contact Authorized Cardiology Diagnoses PAD (peripheral artery disease) ([facility]) Procedures Ultrasound duplex arterial leg left Mohsen Sarabia MD [address] [place] [address] Specialty Diagnoses / Procedures Referred By Contac t Referred To Contact Physical Therapy Diagnoses Pain in prosthetic joint, subsequent encounter Dashawn Silvestre MD [address] [place] [address] [facility] [place] [address] Referral ID Status Reason Start Date Expiration Date V isits Requested Visits Authorized [id number] New Request 11/24/2021 12/19/2022 1 1 Specialty Diagnoses / Procedures Referred By Contac t Referred To Contact Diagnoses Pain in prosthetic joint, subsequent encounter Procedures XR HIP WITH PELVIS RIGHT Dashawn Silvestre MD [address] [place] [address] Referral ID Status Reason Start Date Expiration Date V isits Requested Visits Authorized [id number] New Request 11/19/2021 12/14/2022 1 1 Specialty Diagnoses / Procedures Referred By Contac t Referred To Contact Diagnoses Hx of total hip arthroplasty, right Procedures XR HIP WITH PELVIS RIGHT Dashawn Silvestre MD [address] [place] [phone] Referral ID Status Reason Start Date Expiration Date V isits Requested Visits Authorized [id number] New Request 01/05/2022 01/30/2023 1 1 Specialty Diagnoses / Procedures Referred By Contac t Referred To Contact Pulmonary Disease / Pulmonology Diagnoses Pulmonary nodule Muna Otto MD [address] [facility] [address] [place] [address] Carson Gallagher MD [address] [place] [phone] Referral ID Status Reason Start Date Expiration Date Visits Requested Visits Authorized [id number] Pending Review Specialty Services Required/Pat ient's Best Interest 01/20/2022 01/20/2023 1 1 Specialty Diagnoses / Procedures Referred By Contac t Referred To Contact Radiology Diagnoses Pulmonary nodule Procedures CT Chest Without Contrast Wagner Moon MD [address] [place] [id number] Referral ID Status Reason Start Date Expiration Date V isits Requested Visits Authorized [id number] New Request 05/11/2022 05/11/2023 1 1 Specialty Diagnoses / Procedures Referred By Contac t Referred To Contact Cardiology Diagnoses Bilateral carotid artery stenosis Procedures Carotid Duplex Mohsen Sarabia MD [address] [facility] [address] [place] [address] Referral ID Status Reason Start Date Expiration Date V isits Requested Visits Authorized [id number] Authorized 05/25/2022 05/25/2023 1 1 Specialty Diagnoses / Procedures Referred By Contac t Referred To Contact Diagnoses Hx of total hip arthroplasty, right Procedures XR HIP WITH PELVIS RIGHT Scar Ortega, [employer] [address] [place] [address] Referral ID Status Reason Start Date Expiration Date V isits Requested Visits Authorized [id number] New Request 07/06/2022 07/31/2023 1 1 Specialty Diagnoses / Procedures Referred By Contac t Referred To Contact Radiology Diagnoses Community acquired pneumonia of left lower lobe of lung Procedures CT Chest Without Contrast Jose Escalona, KAMARI [address] [place] [address] Referral ID Status Reason Start Date Expiration Date V isits Requested Visits Authorized [id number] New Request 11/08/2022 11/08/2023 1 1 Specialty Diagnoses / Procedures Referred By Contac t Referred To Contact Cardiology Diagnoses PAD (peripheral artery disease) (HCC) Procedures US Duplex Bypass Graft Left LE Mohsen Sarabia MD [address] [place] [address] Referral ID Status Reason Start Date Expiration Date V isits Requested Visits Authorized [id number] Authorized 05/16/2023 05/15/2024 1 1 Specialty Diagnoses / Procedures Referred By Contac t Referred To Contact Cardiology Diagnoses PAD (peripheral artery disease) (HCC) Procedures Ultrasound ankle / brachial indices extremity complete Mohsen Sarabia MD [facility] [place] [address] Referral ID Status Reason Start Date Expiration Date V isits Requested Visits Authorized [id number] Authorized 05/16/2023 05/15/2024 1 1 Referral ID Status Reason Start Date Expiration Date V isits Requested Visits Authorized [id number] New Request 08/01/2023 08/25/2024 1 1 Specialty Diagnoses / Procedures Referred By Contac t Referred To Contact Diagnoses Seasonal allergic rhinitis due to pollen Zoë King PA [address] [facility] [address] [place] [address] Referral ID Status Reason Start Date Expiration Date V isits Requested Visits Authorized [id number] Pending Review 05/21/2024 11/17/2024 1 1 Hospital Course Note CLINICAL SUMMARY Please take this summary document to your follow up appointments. Di Ramirez [facility] 11/29/19 11:09 [address] [place]. [address] PATIENT INFORMATION Name: TRSITIN POWELL Address: [address] [address] Age: 79 Years Phone: [phone] : 1940 12:00 MRN: [id number] Sex: Male Race: White Ethnicity: Not Hispan/Lat Admitted From: Clinic or [facility] Medical Service: Orthopedic Surgery Nurse Unit/Bed: ([place]) [...] every 2 days and PRN * Discharge [facility] - PHARMACY* Lydia Davis CPhT - [...] your doctor if you can take an [id number] medicine. If you think your pain medicine [...] Log into your personal health record on [email or web address] and enter [email or web address] in the Education box to learn more about Femoral-Tibial Bypass Surgery: What to Expect at Home. Current as of: March 18, 2018 Content Version: .[id number] [employer]. Care instructions adapted under license by your healthcare professional. If you have questions about a medical condition or this instruction, always ask your healthcare professional. [employer] disclaims any warranty or liability for your use of this information. * Attachments The following attachments cannot be sent through Care Everywhere. * Angiogram: General: Post-op ([place]ese) in this encounter* Discharge Instr - Other Orders* Kristi Grossman RN - 10/12/2018 6:09 PM EST Printed MAR sent to facility to show last admin times for lovenox and percocet. * Discharge Instr - Care Coordination* Rubi Dominguez LSW - 10/05/2018 6:46 AM EST [facility] [place] kristy Valerio P: [phone] F: [phone] * Additional Instructions* Gilbert Guerra DPM - [...] drive, operate heavy machinery, ride motorcycles or [employer] s, drink alcohol, or take other medication [...] through Care Everywhere. * Foot: Amputation: Post-op ([place]) in this encounter History of Present Illness * Esau Alejandro MD - 09/13/2018 9:03 AM EST VASCULAR SURGERY PROGRESS NOTE 09/13/18 Patient Name: Tristin Powell : 1940 MR #: [id number] Admit Date: 1070905 Assessment and Plan: Tristin Powell is a 78 y.o. male with a PMH of PVD s/p LLE angio with stent placement 08/09, prostatecancer, PVD, CAD, HTN and a PSH of L ankle ORIF and thriple CABG in october 2016 with L saphenous vein harvested who presented to [facility] 09/04/2018 as a transfer from [place] for second opinion regarding left lower extremity [...] d/c today - Discussed with Dr. Monty MARTINEZ. Having persistent foot pain Physical Examination: [...] Final Result Stable chest. No acute disease. [facility] Workstation ID: [id number] Saphenous vein mapping, limited Final Result Cardiac Catheterization Final Result Ultrasound duplex arterial leg left Final Result XR Comparison Import Final Result Us Doppler Ankle/brachial Index Result Date: 09/10/2018 Non-Invasive Vascular Patient: SHERRY Bazan [facility] Rec#: [id number] (Age): 1940(78y) Study Date: 09/10/2018 Room#: 8506 Type: Inpatient Sex: M Reading: [place] Reading: Ben Hahn MD, RPVI Referring: Esau Alejandro her: Andre Madrid RDCS/RVT Procedure Info: [id number] Study Quality: Lower Arterial Doppler: adequate __ [...] Esau Alejandro MD General Surgery PGY-1 Pager [phone] *After 5pm, or on weekends, page [phone]* * Rojelio Woody MD - 09/13/2018 8:52 AM EST [facility] Inpatient Progress Note 09/13/2018 Tristin Powell 1940 [id number] Assessment/Plan: Tristin Powell is a 78 y.o. male with a history of PVD s/p LLE angio with stent placement 08/09, prostate cancer, PVD, CAD, HTN who presented to [facility] 09/04/2018 as a transfer from [place] for second opinion regarding left lower extremity pain and discoloration that was present two days prior to admit there on 08/30/18. On admit his exam was notable for cool mottled left foot. He was admitted for further work up. 1. Critical LLE Ischemia: Underwent LLE Popliteal stent 08/09/18 in [place], discharged on ASA and xarelto. 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 s/p LLE angio withstent placement 08/09 -Formerly [facility] reviewed, patient prescribed Gabapentin 200 mg TID (last filled #540 tabs for 90 days 07/12/18) and Percocet 5/325 mg (#28 tabs for 7 days 08/23/18) written by Dr. Flash Lovelace -s/p Peroneal Femoral Bypass 09/07/[address] Sarabia Subjective/Objective: Perpetual Assessment: Tristin Powell is a 78 y.o. y/o male on hospital day 8 as transfer from [place] for second opinion for LLE pain and [...] artery disease involving coronary bypass graft of [place] heart without angina pectoris ARTERIOSCLEROSIS OF CORONARY [...] No Discharge Readiness Expected Discharge Date: 09/13/18 [facility] Disposition D/C Disposition: Home Health Care Services Related to Current Admission?: Yes Agency/Destination: [facility] Needs : Home health care Met with pt's dtr to discuss dschg plan. They wish to have referral sent to [facility]. Sent order for HHCfor RN, PT, OT. Sent referral to [facility]. Notified [facility] of referral. Updated AVS. * Rojelio Woody MD - 09/12/2018 11:37 AM EST [facility] Inpatient Progress Note 09/12/2018 Tristin Powell 1940 [id number] Assessment/Plan: Tristin Powell is a 78 y.o. male with a history of PVD s/p LLE angio with stent placement 08/09, prostate cancer, PVD, CAD, HTN who presented to [facility] 09/04/2018 as a transfer from [place] for second opinion regarding left lower extremity pain and discoloration that was present two days prior to admit there on 08/30/18. On admit his exam was notable for cool mottled left foot. He was admitted for further work up. 1. Critical LLE Ischemia: Underwent LLE Popliteal stent 08/09/18 in [place], discharged on ASA and xarelto. Returned with [...] Estimated Energy Needs Total Energy Estimated Needs: 5550-4328 kcal Method for Estimating Needs: MSJ + 20% Total Protein Estimated Needs: 88-106 g Method for Estimating Needs: 1-1.2 g/kg IBW (BMI 24.9) * Esau Alejandro MD - 09/12/2018 9:17 AM EST VASCULAR SURGERY PROGRESS NOTE 09/12/18 Patient Name: Tristin Powell : 1940 MR #: [id number] Admit Date: 1070905 Assessment and Plan: Tristin Powell is a 78 y.o. male with a PMH of PVD s/p LLE angio with stent placement 08/09, prostatecancer, PVD, CAD, HTN and a PSH of L ankle ORIF and thriple CABG in october 2016 with L saphenous vein harvested who presented to [facility] 09/04/2018 as a transfer from [place] for second opinion regarding left lower extremity [...] Final Result Stable chest. No acute disease. [facility] Workstation ID: [id number] Saphenous vein mapping, limited Final Result Cardiac Catheterization Final Result Ultrasound duplex arterial leg left Final Result XR Comparison Import Final Result Us Doppler Ankle/brachial Index Result Date: 09/10/2018 Non-Invasive Vascular Patient: SHERRY Bazan [facility] Rec#: [id number] (Age): 1940(78y) Study Date: 09/10/2018 Room#: 8506 Type: Inpatient Sex: M Reading: [place] Reading: Ben Hahn MD, RPVI Referring: Esau Alejandro her: Andre Madrid RDCS/RVT Procedure Info: [id number] Study Quality: Lower Arterial Doppler: adequate __ [...] Esau Alejandro MD General Surgery PGY-1 Pager [phone] *After 5pm, or on weekends, page [phone]* * Maranda Meléndez, [facility] - 09/11/2018 3:45 PM EST Progress Note: [facility] Date: 09/11/2018 Patient name: Tristin [...] needed -Please call with questions -Presented to [facility] 09/04/2018 as a transfer from [place] for second opinion regarding left lower extremity [...] on hospital day 7 as transfer from [place] for second opinion for LLE pain and [...] artery disease involving coronary bypass graft of [place] heart without angina pectoris ARTERIOSCLEROSIS OF CORONARY [...] 3 completed shifts: In: 400 [P.O.:400] Out: 192 [Urine:1924] Results/Medications Reviewed 09/11/18 4:53 PM: Laboratory, [...] Woody MD - 09/11/2018 1:53 PM EST [facility] Inpatient Progress Note 09/11/2018 Tristin Powell 1940 [id number] Assessment/Plan: Tristin Powell is a 78 y.o. male with a history of PVD s/p LLE angio with stent placement 08/09, prostate cancer, PVD, CAD, HTN who presented to [facility] 09/04/2018 as a transfer from [place] for second opinion regarding left lower extremity pain and discoloration that was present two days prior to admit there on 08/30/18. On admit his exam was notable for cool mottled left foot. He was admitted for further work up. Labs prior to transfer notable for Cr 0.7. 1. Critical LLE Ischemia: s/p LLE angiogram 08/09/18 with popliteal balooning and stent in [place], Discharged on ASA and xarelto. Returned to the [facility] with worsening pain and discoloration of [...] 7 days Lab Units 09/11/18 0738 09/10/18200609/10/18 06 WBC K/mcL 7.28 7.13 7.34 HGB g/dL [...] Name: Tristin Powell : 1940 MR #: [id number] Admit Date: 1070905 Assessment and Plan: Tristin Powell is a 78 y.o. male with a PMH of PVD s/p LLE angio with stent placement 08/09, prostatecancer, PVD, CAD, HTN and a PSH of L ankle ORIF and thriple CABG in october 2016 with L saphenous vein harvested who presented to [facility] 09/04/2018 as a transfer from [place] for second opinion regarding left lower extremity pain and discoloration Chronic LLE ischemia S/p peroneal femoral bypass 09/07/18 - Regular diet - Rooke boot LLE - ET following, adaptik and gauze EOD - Podiatry following, betadine paint while waitin for demarcation. - Pain and N control - PT/OT, recommending SNF - Consult placed to case management - Discussed with Dr. Monty DAVID. No new complaints Physical Examination: Vital [...] Final Result Stable chest. No acute disease. [facility] Workstation ID: [id number] Saphenous vein mapping, limited Final Result Cardiac Catheterization Final Result Ultrasound duplex arterial leg left Final Result XR Comparison Import Final Result Us Doppler Ankle/brachial Index Result Date: 09/10/2018 Non-Invasive Vascular Patient: SHERRY Bazan [facility] Rec#: [id number] (Age): 1940(78y) Study Date: 09/10/2018 Room#: 8506 Type: Inpatient Sex: M Reading: [place] [facility] Reading: Ben Hahn MD, RPVI Referring: Esau Alejandro her: Andre Madrid RDCS/INOCENCIO Procedure Info: [id number] Study Quality: Lower Arterial Doppler: adequate __ [...] Esau Alejandro MD General Surgery PGY-1 Pager [phone] *After 5pm, or on weekends, page [phone]* Associated attestation - Mohsen Sarabia MD - 09/11/2018 5:05 PM EST Patient seen and examined. I have personally reviewed all pertinent labs, radiological studies and records. I have personally examined the patient and agree with resident/FRONT END JAVA DEVELOPER/PA assessment and plan. * Flynn Mann, SHIRLEY - 09/11/2018 8:09 AM EST Patient Name: Tristin Powell MR #: [id number] : 1940 Physicians: Flash Lovelace MD (Family); [...] PLT 246 09/10/2018 No results found for: SDCG1OMq results found for: SEDRATE No results found [...] artery disease involving coronary bypass graft of [place] heart without angina pectoris ARTERIOSCLEROSIS OF CORONARY [...] Center with Dr. Mann at [phone] 6th [facility]. Case discussed with Dr. Sarabia. Consider home going antibiotics for coverage of any residual cellulitis. Clinical area of warmth and erythema could be due to reperfusion, but cannot rule out of residual cellulitis as well. Flynn Mann DPM, FACFAS Electronically signed by the above physician 09/11/18 * Ronnie Warren MD - 09/10/2018 12:04 PM EST Progress Note: [facility] Date: 09/10/2018 Patient name: Tristin [...] needed -Please call with questions -Presented to [facility] 09/04/2018 as a transfer from [place] for second opinion regarding left lower extremity [...] on hospital day 6 as transfer from [place] for second opinion for LLE pain and [...] artery disease involving coronary bypass graft of [place] heart without angina pectoris ARTERIOSCLEROSIS OF CORONARY [...] Oral Daily gabapentin 400 mg Oral Q8H [facility] metoprolol succinate 50 mg Oral Daily polyethylene [...] Name: Tristin Powell : 1940 MR #: [id number] Admit Date: 1070905 Assessment and Plan: Tristin Powell is a 78 y.o. male with a PMH of PVD s/p LLE angio with stent placement 08/09, prostatecancer, PVD, CAD, HTN and a PSH of L ankle ORIF and thriple CABG in october 2016 with L saphenous vein harvested who presented to [facility] 09/04/2018 as a transfer from [place] for second opinion regarding left lower extremity pain and discoloration Chronic LLE ischemia S/p peroneal femoral bypass 09/07/18 - Regular diet - Rooke boot LLE - ET consult for skin blistering - Pain and N control - PT/OT, OOB, Encourage IS - D/C qureshi today - Discussed with Dr. Monty Hair [facility] No new complaints Physical Examination: Vital Signs: [...] Final Result Stable chest. No acute disease. [facility] Workstation ID: [id number] Saphenous vein mapping, [...] Esau Alejandro MD General Surgery PGY-1 Pager [phone] *After 5pm, or on weekends, page [phone]* * Vianca Franco DO - 09/10/2018 7:57 AM EST [facility] Inpatient Progress Note 09/10/2018 Tristin Bazan Sherry 1940 [id number] Assessment/Plan: Tristin Powell is a 78 y.o. male with a history of PVD s/p LLE angio with stent placement 08/09, prostate cancer, PVD, CAD, HTN who presented to [facility] 09/04/2018 as a transfer from [place] for second opinion regarding left lower extremity pain and discoloration that was present two days prior to admit there on 08/30/18. On admit his exam was notable for cool mottled left foot. He was admitted for further work up. Labs prior to transfer notable for Cr 0.7. 1. Critical LLE Ischemia: s/p LLE angiogram 08/09/18 with popliteal balooning and stent in [place], Discharged on ASA and xarelto. Returned to the [facility] with worsening pain and discoloration of [...] Franco DO - 09/09/2018 9:18 AM EST [facility] Inpatient Progress Note 09/09/2018 Tristin Powell 1940 [id number] Assessment/Plan: Tristin Powell is a 78 y.o. male with a history of PVD s/p LLE angio with stent placement 08/09, prostate cancer, PVD, CAD, HTN who presented to [facility] 09/04/2018 as a transfer from [place] for second opinion regarding left lower extremity pain and discoloration that was present two days prior to admit there on 08/30/18. On admit his exam was notable for cool mottled left foot. He was admitted for further work up. Labs prior to transfer notable for Cr 0.7. 1. Critical LLE Ischemia: s/p LLE angiogram 08/09/18 with popliteal balooning and stent in [place], Discharged on ASA and xarelto. Returned to the [facility] with worsening pain and discoloration of [...] Name: Tristin Powell : 1940 MR #: [id number] Admit Date: 1070905 Assessment and Plan: Tristin Powell is a 78 y.o. male with a PMH of PVD s/p LLE angio with stent placement 08/09, prostatecancer, PVD, CAD, HTN and a PSH of L ankle ORIF and thriple CABG in october 2016 with L saphenous vein harvested who presented to [facility] 09/04/2018 as a transfer from [place] for second opinion regarding left lower extremity pain and discoloration Chronic LLE ischemia S/p peroneal femoral bypass 09/07/18 - 2 Days Post-Op - Regular diet - Rooke boot LLE - ET consult for skin blistering - Pain and N control - PT/OT, OOB, Encourage IS - Discussed with Dr. Sarabia Subjective [facility] No new complaints Physical Examination: Vital Signs: [...] Final Result Stable chest. No acute disease. [employer] Workstation ID: [id number] Saphenous vein mapping, limited Final Result Cardiac Catheterization Final Result Ultrasound duplex arterial leg left Final Result XR Comparison Import Final Result Xr Chest 1 View Result Date: 09/07/2018 EXAMINATION: AP CHEST HISTORY: Hypoxia. COMPARISON: 08/01/2018 from [facility]. 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 Coronary artery stents are visualized. Minimal linear scarring at the lung bases, unchanged. No pneumothorax. No definite pleural ef fusion no new opacities. Stable chest. No acute disease. [employer] Workstation ID: [id number] Xr Fluoroscopy Time Result Date: 09/08/2018 This is an auto finalized result. Please refer to patient chart for further information. Saphenous Vein Mapping, Limited Result Date: 09/06/2018 Non-Invasive Vascular Patient: SHERRY Bazan Robert Rec#: [id number] (Age): 1940(78y) Study Date: 09/06/2018 Room#: 3386 Type: Inpatient Sex: M Reading: Manuel Leonard MD, RPVI, RVT Referring: ARISTEO Point Of Care Technician: Tom Jeffers RDCS, RVT Procedure Info: [id number] Study Quality: Lower Vein Map: limited Study [...] further information. Miryam Rincon MD PGY-2 Surgery [phone] After 5pm and on Weekends, please page [phone] (Surgery Computer Operations Technician loans consultant) * Joi Vaughan, RN - 09/08/2018 10:53 [...] Franco DO - 09/08/2018 9:38 AM EST [facility] Inpatient Progress Note 09/08/2018 Tristin Powell 1940 [id number] Assessment/Plan: Tristin Powell is a 78 y.o. male with a history of PVD s/p LLE angio with stent placement 08/09, prostate cancer, PVD, CAD, HTN who presented to [facility] 09/04/2018 as a transfer from [place] for second opinion regarding left lower extremity pain and discoloration that was present two days prior to admit there on 08/30/18. On admit his exam was notable for cool mottled left foot. He was admitted for further work up. Labs prior to transfer notable for Cr 0.7. 1. Critical LLE Ischemia: s/p LLE angiogram 08/09/18 with popliteal balooning and stent in [place], Discharged on ASA and xarelto. Returned to the [facility] with worsening pain and discoloration of [...] days Lab Units 09/08/18 02509/07/18 0758 09/06/18 0545 SODIUM mmol/L 133* 135 [...] Name: Tristin Powell : 1940 MR #: [id number] Admit Date: 1070905 Assessment and Plan: Tristin Powell is a 78 y.o. male with a PMH of PVD s/p LLE angio with stent placement 08/09, prostatecancer, PVD, CAD, HTN and a PSH of L ankle ORIF and thriple CABG in october 2016 with L saphenous vein harvested who presented to [facility] 09/04/2018 as a transfer from [place] for second opinion regarding left lower extremity pain and discoloration Chronic LLE ischemia S/p peroneal femoral bypass 09/07/18 - Patient underwent LLE angiogram with popliteal ballooning and stent 08/09/2018 in [place], sent onaspirin and xarelto - Angiography 09/05/18 showed Infrapopliteal Artery Stenosis Left , severe ASPVD with occluded stent.No reasonable endovascular options. - Diet as tolerated, HLIV - Rooke boot LLE - ET consult for skin blistering - Pain and N control - Continue P/O care - Discussed with Dr. Sarabia Subjective [facility] Physical Examination: Vital Signs: BP 133/62 (BP [...] Final Result Stable chest. No acute disease. [facility] Workstation ID: [id number] Saphenous vein mapping, limited Final Result Cardiac Catheterization Final Result Ultrasound duplex arterial leg left Final Result XR Comparison Import Final Result Cardiac Catheterization Result Date: 09/05/2018 Patient Name: TRISTIN POWELL Date of : 1940 Procedure Date: 09/05/2018 Physician(s): Ben Hahn MD Cath #: [id number] Ref. 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 Dyslipidemia: Yes Hypertension: Yes Pre-OP Diagnosis/Indication: Dale Class/Limb Ischemia: 4 - Ischemic rest pain [...] amputation COMMENTS: No Complications ____ Equipment: Sheath(s) [employer] 5F 10CM PINNACLE SHEATH Naroomi 6F 45CM .038 FLEXOR CHECKFLO ANSEL1 SHEATH Wire(s) [employer] .035 X 150CM FIXED J WIRE Catheter(s) [employer] Focus 5F MP TEMPO AQUA CATHETER Other Naroomi .035 CXI ANGLED SUPPORT CATHETERS SHER VASCULAR [...] AP CHEST HISTORY: Hypoxia. COMPARISON: 08/01/2018 from [facility]. 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 Coronary artery stents are visualized. Minimal linear scarring at the lung bases, unchanged. No pneumothorax. No definite pleural ef fusion no new opacities. Stable chest. No acute disease. [facility] Workstation ID: [id number] Xr Fluoroscopy Time Result Date: 09/08/2018 This is an auto finalized result. Please refer to patient chart for further information. Saphenous Vein Mapping, Limited Result Date: 09/06/2018 Non-Invasive Vascular Patient: SHERRY Jones Rec#: [id number] (Age): 1940(78y) Study Date: 09/06/2018 Room#: 3386 Type: Inpatient Sex: M Reading: Manuel Leonard MD, RPVI, RVT Referring: ARISTEO Point Of Care Technician: Tom Jeffers RDCS, RVT Procedure Info: [id number] Study Quality: Lower Vein Map: limited Study [...] Esau Alejandro MD General Surgery PGY-1 Pager [phone] *After 5pm, or on weekends, page [phone]* * Sirisha Doshi, RD - 09/07/2018 2:26 [...] Estimated Energy Needs Total Energy Estimated Needs: 0551-3299 kcal Method for Estimating Needs: MSJ + 20% Total Protein Estimated Needs: 88-106 g Method for Estimating Needs: 1-1.2 g/kg IBW (BMI 24.9) Assessed By: Sirisha Doshi RD, LD * Maranda Meléndez CNP - 09/07/2018 1:15 PM EST Progress Note: [facility] Date: 09/07/2018 Patient name: Tristin Powell Date Of : 1940 Assessment/Plan: Pain of left lower extremity Assessment & Plan -Presented to [facility] 09/04/2018 as a transfer from [place] for second opinion regarding left lower extremity [...] in pain -Reports pain is uncontrolled with COTTON JAMMER Dilaudid pump, and pain does not decrease [...] on hospital day 3 as transfer from [place] for second opinion for LLE pain and discoloration. S/p LLE angio with stent placement 08/09/18. HPI: Patient found writhing in bed, holding his left leg; family members at bedside. He is alert and oriented, and appears extremely uncomfortable. Patient states he needs something for his pain now;COTTON JAMMER Dilaudid drip still in place. Family asking [...] artery disease involving coronary bypass graft of [place] heart without angina pectoris ARTERIOSCLEROSIS OF CORONARY [...] Franco DO - 09/07/2018 10:15 AM EST [id number] Inpatient Progress Note 09/07/2018 Tristin Powell 1940 [id number] Assessment/Plan: Tristin Hortensia Sherry is a 78 y.o. male with a history of PVD s/p LLE angio with stent placement 08/09, prostate cancer, PVD, CAD, HTN who presented to [facility] 09/04/2018 as a transfer from [place] for second opinion regarding left lower extremity pain and discoloration that was present two days prior to admit there on 08/30. On admit his exam was notable for cool mottled left foot. He was admitted for further work up. Labs prior to transfer notable for Cr 0.7. 1. Critical LLE Ischemia: s/p LLE angio 08/09, Discharged on xeralto. Returned to the [facility] with worsening pain and discoloration of [...] the setting of acute limb ischemia.On dilaudid COTTON JAMMER per pain management. 3. Opioid induced constipation: [...] has uncontrolled LLE pain. Currently on Dilaudid COTTON JAMMER pump and pt is maxing his dose at 1.5mg q1h. Pt states he has continued pain in LLE. Instructed nursing staff tocontact pain management for updated pain plan/COTTON JAMMER titration. Plan for bypass surgery today. Physical [...] Franco DO - 09/06/2018 11:35 AM EST [facility]2018 Tristin Powell 1940 [id number] Assessment/Plan: Tristin Powell is a 78 y.o. male with a history of PVD s/p LLE angio with stent placement 08/09, prostate cancer, PVD, CAD, HTN who presented to [facility] 09/04/2018 as a transfer from [place] for second opinion regarding left lower extremity pain and discoloration that was present two days prior to admit there on 08/30. On admit his exam was notable for cool mottled left foot. He was admitted for further work up. Labs prior to transfer notable for Cr 0.7. 1. Critical LLE Ischemia: s/p LLE angio 08/09, Discharged on xeralto. Returned to the [facility] with worsening pain and discoloration of [...] Diaz CNP - 09/06/2018 7:37 AM EST [facility] [facility] Daily Progress Note [...] pop angioplasty with stent placement 08/09 at [facility] in [place], [place]. Ptwas placed on Xarelto and ASA. [...] artery disease involving coronary bypass graft of [place] heart without angina pectoris Assessment & Plan [...] 81 mg 81 mg Oral Daily Yasmeen Diaz, KAMARI 81 mg at 09/05/18 0951 aspirin EC tablet 162 mg 162 mg Oral Daily Mirna Mckeon MD 162 mg at 09/05/18 4405 atorvastatin (LIPITOR) tablet 40 mg 40 mg [...] in D5W infusion 0-70 Units/kg/hr (Order-Specific)Intravenous Continuous Tiana Em, DO Stopped at 09/05/18 1542 HYDROmorphone (DILAUDID) [...] PRN Mirna Mckeon MD 4 mg at 09/05/185 ondansetron (ZOFRAN-ODT) disintegrating tablet 4 mg 4 mg Oral Q6H PRN Ben Hahn MD 4 mg at 01/09/19 1905 Or ondansetron (ZOFRAN) injection 4 mg 4 mg Intravenous Q6H PRN Ben Hahn MD oxyCODONE (ROXICODONE) immediate release tablet 5-10 mg 5-10 mg Oral Q4H PRN Minra Mckeon MD5 mg at 09/06/18 0328 polyethylene glycol (MIRALAX) powder 17 g 17 g Oral Daily Mirna Mckeon MD prochlorperazine (COMPAZINE) injection 5 mg 5 mg Intravenous Q6H PRN Leida Matos MD senna-docusate (SENNA-S) 8.6-50 mg per tablet 1 tablet 1 tablet Oral BID Miran Mckeon MD 1 tablet at 09/05/182030 sodium [...] CKTOTAL, CKMB, TROPONINI, TROPONINT Yasmeen Diaz, MSN, FRONT END JAVA DEVELOPER-C Nurse Practitioner 09/06/2018 * Vianca Franco DO - 09/05/2018 11:11 AM EST [id number] Inpatient Progress Note 09/05/2018 Tristin Bazan Sherry 1940 [id number] Assessment/Plan: Tristin Hortensia Powell is a 78 y.o. male with a history of PVD s/p LLE angio with stent placement 08/09, prostate cancer, PVD, CAD, HTN who presented to [facility] 09/04/2018 as a transfer from [place] for second opinion regarding left lower extremity [...] 08/09, Discharged on xeralto. Returned to the [facility] with worsening pain and discoloration of [...] CALCIUM mg/dL 9.3 in this encounter* Flynn Mann, SHIRLEY - 09/20/2018 5:54 PM EST Patient Name: Tristin Powell MR #: [id number] : 1940 Physicians: Flash Lovelace MD (Family); No ref. provider found (Referring) History of Present Illness: Tristin Powell is a 78 y.o. male Dictation on: 09/20/2018 5:58 PM by: FLYNN MANN [[id number]] History: The following portions of the patient's [...] None 09/20/2018 2:00 PM Wound Bed Characteristics Black;Yellow;Red;[place] 09/20/2018 2:00 PM Edna-wound Assessment Dry;Ecchymosis 09/20/2018 2:00 PM Treatments Not Applicable 09/20/2018 2:00 PM Hemostasis Not applicable 09/20/2018 2:00 PM Cleansed Sterile saline 09/20/2018 2:00 PM Primary Dressing Betadine;Impregnated gauze 09/20/2018 2:00 PM Secondary Dressing Dry gauze dressing;Gauze roll;Gauze pad 09/20/2018 2:00 PM Compression Dressing Not Applicable 09/20/2018 2:00 PM Dictation on: 09/20/2018 5:59 PM by: FLYNN MANN [[id number]] Assessment and Plan: SNOMED CT(R) 1. Critical lower limb ischemia CRITICAL LOWER LIMB ISCHEMIA Prealbumin Albumin Protein,Total XR Foot Left 3+ Views (Standard) XR Ankle Left 3+ Views (Standard) 2. Gangrene (HCC) GANGRENOUS DISORDER 3. PVD (peripheral vascular disease) (HCC) PERIPHERAL VASCULAR DISEASE 4. Left foot pain PAIN IN LEFT FOOT Dictation on: 09/20/2018 6:00 PM by: FLYNN AMNN [[id number]] Flynn Mann DPM, FACFAS Electronically signed by [...] from pt's 09/20/18 clinic visit to pt's [facility], [facility] [place]. [facility] previously faxed same on 09/20/18 but now signed by physician. in this encounter* Radha Parker RN - 10/04/2018 4:59 PM EST Patient was admitted to [facility] for surgery. * Flynn Mann DPM - 10/04/2018 4:50 PM EST Patient Name: Tristin Powell MR #: [id number] : 1940 Physicians: Flash Lovelace MD (Family); [...] post bypass surgery with Dr. Sarabia at [facility] on 09/07/2018. No new complaints per [...] We will admit the patient to [facility] today, and he will receive IV antibiotic [...] Canseco MD - 10/12/2018 9:44 AM EST [facility] DAILY PROGRESS NOTE Assessment and Plan 78 y.o. male patient of Flash Lovelace MD with history of PAD, CAD and HTN that presented to [place] with need for left foot partial amputation. [...] pending) CAD S/p 3 vessel bipass in 2016 Continue plavix, Statin and BB initially ASA on hold for surgery, and would like to resume when ok with Dr. Mann DAPT held 10/09 for GI bleeding but likely resume 10/11 HTN Continue BB Insomnia Holding home Ambien Can start trazodone if needed Quality Measures DVT Prophylaxis: lovenox Qureshi Catheter: none Disposition Discharge Location: [facility] Estimated Discharge Date: Medically stable to [...] Radiology, Cardiology, Medications and Transcriptions * Edwina Browne RPh,PharmD - 10/12/2018 9:26 AM EST PHARMACOTHERAPY [...] 14.5-hour post-dose level Pharmacist: Edwina Browne RPh,PharmD, [facility] Contact Number: Vocera OR pharmacist [...] Independent Transfers Sit to Stand: Contact guard Pump House Operator: Wheeled walker Skilled Intervention: cont. to reinforce [...] Wheelchair-electric Prior Level of Function Level of [place]: Independent with ADLs and functional transfers, Independent [...] labs reviewed. -Empiric IV Vancomycin. -Radiographs reviewed. -[facility] c'sed for medical management. -WBAT to LLE -DVT ppx lovenox. -Patient discussed with Dr. Mann who agrees with assessment and plan. Patient had bypass surgery ofLLE at [place] in August. Pt now s/p left midfoot amputation and DEREK. Awaiting SNF placement. Awaiting consulting services clearance prior to DC. Further plan per Dr. aMnn SUBJECTIVE Pt seen and evaluated at bedside. [...] articulations. Surgical drain present. VK/mll Workstation ID: [id number] XR Chest 1 View Final Result 1. [...] EST VM from Jose Manuel @ the [facility] requesting final Iv atb orders. Return call [...] Sit: Modified independence Sit to Supine: Modified [place] Functional Transfers Sit to Stand: Contact guard [...] Wheelchair-electric Prior Level of Function Level of [place]: Independent with ADLs and functional transfers, Independent [...] 36-hour post-dose level Pharmacist: Edwina Browne RPh,PharmD, [facility] Contact Number: Vocera OR pharmacist * Jeanette Ramirez RN - 10/11/2018 1:03 PM EST Call from daughter Monica Zaidi requesting update on pre-cert and possible transport needs. Advised Monica we do not yet have pre-cert and we plan to notify her of the same once we obtain it. She requests to transport her father to [facility]. She relates they have been transporting him [employer] and are aware of his limited gait and transferring capabilities. Monica plans to arrive here 10/12 after an AM meeting. Plan to contact Monica once pre-cert is obtained # [phone]. * Alice Delvalle, [employer] - 10/11/2018 11:33 AM EST Physical Therapy [...] to Chair: (x 2 for line management) Pump House Operator: Wheeled walker Skilled Intervention: cued to achieve [...] Wheelchair-electric Prior Level of Function Level of [place]: Independent with ADLs and functional transfers, Independent [...] Canseco MD - 10/11/2018 10:43 AM EST [facility] DAILY PROGRESS NOTE Assessment and Plan 78 y.o. male patient of Flash Lovelace MD with history of PAD, CAD and HTN that presented to [place] with need for left foot partial amputation. [...] Qureshi Catheter: none Disposition Discharge Location: [facility] Estimated Discharge Date: Pending Hgb stability Outpatient [...] Cardiology, Medications and Transcriptions * Nabor Hamilton, DPJenni - 10/11/2018 6:59 AM EST Podiatry Progress Note IMPRESSION & PLAN: Tristin Powell is a 78 y.o. male with PMHx PVD (s/p bypass), HTN, HLD, Triple bypass and prior stent placement in heart, Prostate cancer presents with Left forefoot gangrene with local infection, now s/p left midfoot amputation and DEREK (10/08/18). -Patient evaluated at bedside. -Afebrile, labs reviewed. -Empiric IV Vancomycin. -Radiographs reviewed. -[facility] c'sed for medical management. -WBAT to LLE -DVT ppx lovenox. -Patient discussed with Dr. Mann who agrees with assessment and plan. Patient had bypass surgery ofLLE [place] [facility] [place] in August. Pt now s/p left midfoot [...] articulations. Surgical drain present. VK/mll Workstation ID: [id number] XR Foot Left 3+ Views (Standard) Final [...] PAD, CAD and HTN that presented to [place] with need for left foot partial amputation. Action: AUDREY met with pt who requests referral to [facility] at [place]. SW educated pt on referral/PC process. Pt [...] labs reviewed. -Empiric IV Vancomycin. -Radiographs reviewed. -[facility] c'sed for medical management. -WBAT to LLE -DVT ppx lovenox. -Patient discussed with Dr. Mann who agrees with assessment and plan. Patient had bypass surgery ofLLE at [facility] [place] in August. Pt now s/p left midfoot [...] articulations. Surgical drain present. VK/mll Workstation ID: [id number] XR Foot Left 3+ Views (Standard) Final [...] Canseco MD - 10/10/2018 9:37 AM EST [facility] DAILY PROGRESS NOTE Assessment and Plan 78 y.o. male patient of Flash Lovelace MD with history of PAD, CAD and HTN that presented to [place] with need for left foot partial amputation. [...] Information Primary Caregiver: Self Accompanied by/Relationship: none Worship/Cultural Factors: none Legal Documentation Advance Directives: (none) Resuscitation Status: Resuscitate Resources Financial Resources: Other (Comment)([employer] Medicare insurance confirmed) Community Resources: Other (Comment)(PCP Dr. Lovelace [phone]) Discharge Plan Shared UM/CC and RN Source of Information: Patient Contact Phone Number: emergency contact Amina Zaidi p:[phone] Living Arrangements: Children Support Systems: Children Functional Status: Independent Type of Residence: Private residence Prior to Admission Home Care Services: Yes Type of Current Home Care Services: Home health care Current Agency Name: [facility] Current Home Equipment: Walker, Wheeled walker, Toilet seat electrical mechanic, Tub/Shower chair Insurance Coverage for Prescriptions: Yes [...] Estimated Energy Needs Total Energy Estimated Needs: 3474-7322 kcal Method for Estimating Needs: 25-30 kcal/kg Total Protein Estimated Needs: 95-144 gm Method for Estimating Needs: 1.0-1.2 gm/kg Assessed by: Gaye Carver RD,LD Phone #: [phone] Pager #: [phone] * Stan Canseco MD - 10/09/2018 11:01 AM EST [facility] DAILY PROGRESS NOTE Assessment and Plan 78 y.o. male patient of Flash Lovelace MD with history of PAD, CAD and HTN that presented to [place] with need for left foot partial amputation. [...] Qureshi Catheter: none Disposition Discharge Location: [facility] Estimated Discharge Date: Medically stable to ma home Outpatient Testing: none Subjective Resting comfortably. [...] labs reviewed. -Empiric IV Vancomycin. -Radiographs reviewed. -[facility] c'sed for medical management. -WBAT to LLE -DVT ppx lovenox. -Patient discussed with Dr. Mann who agrees with assessment and plan. Patient had bypass surgery ofE at [facility] in August. Pt now s/p left midfoot [...] articulations. Surgical drain present. VK/mll Workstation ID: [id number] XR Foot Left 3+ Views (Standard) Final [...] Canseco MD - 10/08/2018 10:45 AM EST [facility] DAILY PROGRESS NOTE Assessment and Plan 78 y.o. male patient of Flash Lovelace MD with history of PAD, CAD and HTN that presented to [place] with need for left foot partial amputation. [...] [facility] Estimated Discharge Date: TBD - surgery Monday [...] reviewed: No acute abnormalities or ST gas -[facility] c'sed for medical management and preoperative clearance. -WBAT to LLE -DVT ppx lovenox. -Patient discussed with Dr. Mann who agrees with assessment and plan. Pt with mummification and drygangrene of left forefoot, patient had bypass surgery of LLE at [facility] [place] in August. Pt with some local erythema [...] in this patient's care. Demetrice Lomeli, PharmD, [facility]: ED Pharmacy Electronically Signed by Demetrice Lomeli, [facility],PharmD on 10/08/2018 12:15 AM EST * Aaron Choi MD - 10/07/2018 11:56 AM EST [facility] DAILY PROGRESS NOTE Assessment and Plan 78 y.o. male patient of Flash Lovelace MD with history of PAD, CAD and HTN that presented to [place] with need for left foot partial amputation. [...] reviewed: No acute abnormalities or ST gas -[facility] c'sed for medical management and preoperative clearance. -WBAT to LLE -DVT ppx lovenox. -Patient discussed with Dr. Mann who agrees with assessment and plan. Pt with mummification and drygangrene of left forefoot, patient had bypass surgery of LLE at [facility] in August. Pt with some local erythema will monitor response to Abx. Continue daily betadine dressing changes. Plan for OR on Monday (10/08/18) for left midfoot amputation (Open vs. Closed) at 7am. Consent obtained. [facility] consulted for medical management. Patient will require preoperative risk stratification. Appreciate [facility] assistance. Further plan per Dr. Mann SUBJECTIVE [...] is clinically warranted, consider MRI or CT. [facility]/db Workstation ID: [id number] Echocardiogram complete (Results Pending) * Aaron Choi MD - 10/06/2018 10:50 AM EST [facility] DAILY PROGRESS NOTE Assessment and Plan 78 y.o. male patient of Flash Lovelace MD with history of PAD, CAD and HTN that presented to [place] with need for left foot partial amputation. [...] Medications and Transcriptions Ofe Jensen DPM - 10/06/2018 8:21 AM EST Podiatry [...] reviewed: No acute abnormalities or ST gas -[facility] c'sed for medical management and preoperative clearance. -WBAT to LLE -DVT ppx lovenox. -Patient discussed with Dr. Mann who agrees with assessment and plan. Pt with mummification and drygangrene of left forefoot, patient had bypass surgery of LLE at [facility] [place] in August. Pt with some local erythema will monitor response to Abx. Continue daily betadine dressing changes. Plan for OR on Monday (10/08/18) for left midfoot amputation (Open vs. Closed) at 7am. Consent to be obtained. [facility]. Patient will require preoperative risk stratification. [facility] assistance. Further plan per Dr. Mann SUBJECTIVE [...] reviewed: No acute abnormalities or ST gas -[facility] c'sed for medical management and preoperative clearance. -WBAT to LLE -DVT ppx lovenox. -Patient discussed with Dr. Mann who agrees with assessment and plan. Pt with mummification and drygangrene of left forefoot, patient had bypass surgery of LLE at [facility] in August. Pt with some local erythema will monitor response to Abx. Continue daily betadine dressing changes. Plan for OR on Monday (10/08/18) for left midfoot amputation (Open vs. Closed). [facility] consulted for medical management. Patient will require preoperative risk stratification. Appreciate [facility] assistance. Further plan per Dr. Mann SUBJECTIVE [...] further evaluation is clinically warranted, consider MRI. [facility]/[employer] Workstation ID: [id number] Associated attestation - Flynn [...] primary closure as indicated. Will follow. Flynn Mnan DPM, FACFAS Electronically signed by the above physician 10/05/18 in this encounter* Flynn Mann DPM - 10/18/2018 6:10 PM EST Patient Name: Tristin Powell MR #: [id number] : 1940 Physicians: Flash Lovelace MD (Family); No ref. provider found (Referring) History of Present Illness: Tristin Powell is a 78 y.o. male Dictation on: 10/18/2018 6:12 PM by: FLYNN MANN [[id number]] History: The following portions of the patient's [...] on: 10/18/2018 6:13 PM by: FLYNN MANN [[id number]] Assessment and Plan: SNOMED CT(R) 1. Gangrene (HCC) GANGRENOUS DISORDER 2. 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 (HCC) HISTORY OF AMPUTATION OF FOOT 3. PVD (peripheral vascular disease) ([facility]) PERIPHERAL VASCULAR DISEASE Dictation on: 10/18/2018 6:14 PM by: FLYNN MANN [[id number]] Flynn Mann DPM, FACFAS Electronically signed by the above physician 10/18/18 * Maia Duvall RN - 10/18/2018 4:16 PM EST Dressing changed by Dr Mann. Betadine, 4x4's, ABD pad, specialist cast padding, splint, rio bandages * Maia Duvall RN - 10/18/2018 3:39 PM EST in this encounter* Mine Lew LISW - 10/19/2018 8:38 AM EST Pt was seen in clinic 10/18/18. [facility] faxed signed d/c orders/instructions to pt's [facility], [facility]. in this encounter* Mine Lew LISW - 10/26/2018 9:19 AM EST Pt was seen in wound clinic 10/25/18. [facility] faxed signed orders/instructions to pt's [facility], [facility]. in this encounter* Radha Parker RN - 10/31/2018 4:45 PM EST Opened in error. in this encounter* Eugene Barnett MD - 12/17/2018 9:57 PM EDT [facility] [address] [facility] [place] [address] FAX [phone] Tristin Hortensia Sherry 1940 male MD Flash Peña MD [phone] Chief Complaint Patient presents with Cerumen Impaction [...] MIDFOOT AMPUTATION; Surgeon: Flynn Mann DPM; Location: [facility] OR; Service: Podiatry ANKLE SURGERY Left BYPASS PERONEAL FEMORAL Right 09/07/2018 Procedure: BYPASS PERONEAL FEMORAL, RIGHT SAPHENOUS VEIN HARVEST, COMPLETION ANGIOGRAM; Surgeon: Mohsen Sarabia MD; Location: [facility]; Service: Cardiovascular CARDIAC CATHETERIZATION Left 09/05/2018 Procedure: Angio Lower Extremity; Surgeon: Ben Hahn MD; Location: [facility]; Service: Cardiovascular CARDIAC SURGERY 2017 triple bypass [...] MD documented in this encounter* Rose Rosales, TRANSPORTATION CONSULTANT - 10/09/2019 5:07 PM EST VASCULAR SURGERY CONSULT NOTE Patient Name: Tristin Powell Admit Date: MR #: [id number] : 1940 Assessment and Plan: cta with [...] MIDFOOT AMPUTATION; Surgeon: Flynn Mann DPM; Location: [facility] OR; Service: Podiatry ANKLE SURGERY Left BYPASS PERONEAL FEMORAL Right 09/07/2018 Procedure: BYPASS PERONEAL FEMORAL, RIGHT SAPHENOUS VEIN HARVEST, COMPLETION ANGIOGRAM; Surgeon: Mohsen Sarabia MD; Location: [facility]; Service: Cardiovascular CARDIAC CATHETERIZATION Left 09/05/2018 Procedure: Angio Lower Extremity; Surgeon: Ben Hahn MD; Location: [facility]; Service: Cardiovascular CARDIAC SURGERY 2017 triple bypass EGD N/A 10/10/2018 Procedure: ESOPHAGOGASTRODUODENOSCOPY; Surgeon: Ben Jensen MD; Location: [facility]; Service: Gastroenterology EYE SURGERY Right 2015 [...] file Gets together: Not on file Attends confucianism service: Not on file Active member of [...] Instructions Prior to Surgery LOLA: Printed on:10/09/19 7625 Medication Information Take last dose on Take [...] the diagnosis & follow-upneeds. Rose Rosales CNP [phone] documented in this encounter* Flynn Mann DPM - 10/25/2018 6:03 PM EST Patient Name: Tristin Powell MR #: [id number] : 1940 Physicians: Flash Lovelace MD (Family); No ref. provider found (Referring) History of Present Illness: Tristin Powell is a 78 y.o. male Dictation on: 10/25/2018 6:03 PM by: FLYNN MANN [[id number]] History: The following portions of the patient's [...] on: 10/25/2018 6:04 PM by: FLYNN MANN [[id number]] Assessment and Plan: SNOMED CT(R) 1. 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 Gangrene (HCC) GANGRENOUS DISORDER 3. PVD (peripheral vascular disease) (HCC) PERIPHERAL VASCULAR DISEASE 4. 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 Lower extremity edema EDEMA OF LOWER EXTREMITY Dictation on: 10/25/2018 6:04 PM by: FLYNN MANN [[id number]] Flynn Mann, SHIRLEY, FACFAS Electronically signed by the above physician 10/25/18 * Lori Velez RN - 10/25/2018 3:46 PM EST in this encounter* Mine Lew LISW - 09/21/2018 8:27 AM EST Pt was seen in clinic 09/20/18. [facility] faxed signed d/c orders/instructions to pt's [facility], [facility] [place]. in this encounter* Mohsen Sarabia MD - [...] not included)... 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 Posterior cervical fusion. Dr. [...] artery disease involving coronary bypass graft of [place] heart without angina pectoris Hypercholesteremia Pure hypercholesterolemia Essential hypertension Unspecified essential hypertension Class 1 obesity with body mass index (BMI) of 31.0 to 31.9 in adult Pain of left lower extremity Diagnosis Critical lower limb ischemia- Primary Unspecified circulatory system disorder Gangrene (HCC) Gangrene PVD (peripheral vascular disease) ([facility]) Unspecified peripheral vascular disease Left foot pain Pain in soft tissues of limb Diagnosis Critical lower limb ischemia Unspecified circulatory system disorder Diagnosis Gangrene (HCC)- Primary Gangrene PVD (peripheral vascular disease) ([facility]) Unspecified peripheral vascular disease Left foot pain Pain in soft tissues of limb Critical lower limb ischemia Unspecified circulatory system disorder Ulcer of toe of left foot, with necrosis of bone ([facility]) Diagnosis Acute post-operative pain- Primary Gangrene of left foot ([facility]) Diagnosis Gangrene (HCC)- Primary Gangrene 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 (HCC) PVD (peripheral vascular disease) ([facility]) Unspecified peripheral vascular disease Lower extremity edema Edema 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, left Diagnosis 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 ([facility]) S/P bypass graft of extremity Diagnosis Referred otalgia of right ear- Primary Bilateral temporomandibular joint pain Diagnosis Bilateral carotid artery stenosis Occlusion and stenosis of carotid artery without mention of cerebral infarction Diagnosis Atherosclerosis of [place] arteries of the extremities with ulceration ([facility]) S/P bypass graft of extremity Diagnosis Atherosclerosis of [place] arteries of the extremities with ulceration ([facility]) S/P bypass graft of extremity Diagnosis Pain of left lower extremity Diagnosis S/P bypass graft of extremity PAD (peripheral artery disease) ([facility]) Unspecified peripheral vascular disease Atherosclerosis of [place] arteries of the extremities with ulceration ([facility]) Diagnosis Bilateral carotid artery stenosis Occlusion and stenosis of carotid artery without mention of cerebral infarction Diagnosis Atherosclerosis of [place] arteries of the extremities with ulceration ([facility]) Diagnosis 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 ([facility])- Primary Gangrene (HCC) Gangrene PVD (peripheral vascular disease) ([facility]) Unspecified peripheral vascular disease 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, left Lower extremity edema Edema Diagnosis Gangrene of left foot ([facility])- Primary Critical lower limb ischemia Unspecified circulatory system disorder Diagnosis Atherosclerosis of [place] arteries of the extremities with ulceration ([facility]) Diagnosis Critical lower limb ischemia- Primary Unspecified circulatory system disorder Diagnosis Atherosclerosis of [place] artery of left lower extremity with rest pain ([facility]) S/P bypass graft of extremity Instructions * [...] If the bleeding does not stop, call [facility] at [phone] or go to the Emergency Room. Signs/Symptoms of infection: If you have any fever, chills, nausea, vomiting or increased odor, drainage, pain or redness to thewound, call [facility] at [phone]. If after hours, contactyour family physician or [...] regarding your home care instructions please contact [facility] at [phone]. If after hours, contact your primary care physician or go to the hospital emergency room. Please call 24 hours prior to your scheduled appointment if you need to cancel or reschedule. in this encounter* Patient Instructions* Radha Parker RN - 10/04/2018 1:14 PM EST You are being admitted [facility] Monday[facility]* Patient Instructions* Maia Duvall [...] If the bleeding does not stop, call [facility] at [phone] or go to the Emergency Room. Signs/Symptoms of infection: If you have any fever, chills, nausea, vomiting or increased odor, drainage, pain or redness to thewound, call [facility] at [phone]. If after hours, contactyour family physician or [...] regarding your home care instructions please contact [facility] at [phone]. If after hours, contact your primary care [...] the bleeding does not stop, call [facility] at [phone] or go to the Emergency Room. Signs/Symptoms of infection: If you have any fever, chills, nausea, vomiting or increased odor, drainage, pain or redness to thewound, call [facility] at [phone]. If after hours, contactyour family physician or [...] regarding your home care instructions please contact [facility] at [phone]. If after hours, contact your primary care [...] for spinal fusion. SURGEON: Ramana Cason MD COUNTY SURVEYOR: LEONARDA Selby ANESTHESIA: General. SPECIMENS: There were no specimens removed. COMPLICA (more content not included)... Note CLINICAL SUMMARY Please take this summary document to your follow up appointments. Di Ramirez [facility] 11/29/19 11:09 [address] [place]. [address] PATIENT INFORMATION Name: TRISTIN POWELL Address: [address] [address] Age: 79 Years Phone: [phone] : 1940 12:00 MRN: [id number] Sex: Male Race: White Ethnicity: Not Hispan/Lat Admitted From: Clinic or [facility] Medical Service: Orthopedic Surgery Nurse Unit/Bed: (CO) 2NAN 0208-01 Admit Date: 11/28/2019 05:01 PCP: Flash [...] not included)... Note Patient: TRISTIN POWELL MRN: [id number] Age: 79 years Sex: Male : 1940 Associated Diagnoses: None Author: Jose C Davis MD Assessment Assessment Diagnosis: Osteoarthritis (DQI40-JW M47.892, Working, Medical). Posterior cervical fusion. Dr. [...] section and content) DATE CREATED AUTHOR 02/16/2018 [facility] DATE CREATED AUTHOR AUTHOR'S ORGANIZ ATION 09/07/2018 [facility] DATE CREATED AUTHOR AUTHOR'S ORGANIZ ATION 11/01/2018 [facility] DATE CREATED AUTHOR AUTHOR'S ORGANIZ ATION 11/02/2018 [facility] DATE CREATED AUTHOR AUTHOR'S ORGANIZ ATION 11/12/2018 [facility] DATE CREATED AUTHOR AUTHOR'S ORGANIZ ATION 05/28/2020 [facility] DATE CREATED AUTHOR AUTHOR'S ORGANIZ ATION 07/21/2021 [facility] DATE CREATED AUTHOR AUTHOR'S ORGANIZ ATION 01/02/2022 [facility] DATE CREATED AUTHOR AUTHOR'S ORGANIZ ATION 05/24/2022 [facility] DATE CREATED AUTHOR AUTHOR'S ORGANIZ ATION 10/29/2022 [facility] DATE CREATED AUTHOR AUTHOR'S ORGANIZ ATION 11/01/2022 [facility] DATE CREATED AUTHOR AUTHOR'S ORGANIZ ATION 12/08/2022 [facility] DATE CREATED AUTHOR AUTHOR'S ORGANIZ ATION 08/15/2023 [facility] DATE CREATED AUTHOR AUTHOR'S ORGANIZ ATION 12/31/2023 [facility] DATE CREATED AUTHOR AUTHOR'S ORGANIZ ATION 05/15/2024 [facility] DATE CREATED AUTHOR AUTHOR'S ORGANIZ ATION 12/22/2024 [facility] DATE CREATED AUTHOR AUTHOR'S ORGANIZ ATION 01/24/2025 [facility] DATE CREATED AUTHOR AUTHOR'S ORGANIZ ATION 03/26/2025 [facility] DATE CREATED AUTHOR AUTHOR'S ORGANIZ ATION 04/21/2025 [facility] DATE CREATED AUTHOR AUTHOR'S ORGANIZ ATION 04/25/[address] 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) S/P bypass graft of extremity Procedures US Doppler ankle/brachial index Segmental doppler lower extremity arterial Mohsen Sarabia MD [address] [place] [address] Reason Comments Cerumen Impaction Status Reason Specialty Diagnoses / Procedures Referred By Contact Referred To Contact Pending Review Cardiology Diagnoses Bilateral carotid artery stenosis Procedures Carotid Duplex Mohsen Sarabia MD [address] [place] [address] [place] [address] Reason Comments Follow-up S/P PERONEAL- FEMORA L BYPASS 09/07/18 Status Reason Specialty Diagnoses / Procedures Referre d By Contact Referred To Contact Closed Radiology Diagnoses S/P bypass graft of extremity PAD (peripheral artery disease) (HCC) Atherosclerosis of [place] arteries of the extremities with ulceration (HCC) Procedures CT Angiogram Abdominal Aorta With Lower Extremity Mohsen Sarabia MD [address] [place] [address] [place] [address] Status Reason Specialty Diagnoses / Procedures Referred By Contact Referred To Contact Closed Cardiology Diagnoses Bilateral carotid artery stenosis Procedures Carotid Duplex Mohsen Sarabia MD [address] [address] Status Reason Specialty Diagnoses / Procedures Referre d By Contact Referred To Contact Closed Cardiology Diagnoses Atherosclerosis of [place] arteries of the extremities with ulceration (HCC) Procedures Ultrasound ankle / brachial indices extremity complete Mohsen Sarabia MD [address] [address] Reason Comments Follow-up Fem-Peron. bypass gr aft 09/09 Reason Comments Follow-up 6mo per-fem bypass g raft Status Reason Specialty Diagnoses / Procedures Referred By Contact Referred To Contact Pending Review Cardiology Diagnoses Atherosclerosis of [place] artery of left lower extremity with rest pain (HCC) S/P bypass graft of extremity Procedures Ultrasound duplex arterial leg left Mohsen Sarabia MD [address] [place] [address] Reason Comments Post Op Visit Specialty Diagnoses / Procedures Referred By Jason t Referred To Contact Diagnoses Pain in prosthetic joint, subsequent encounter Procedures XR HIP WITH PELVIS RIGHT Dashawn Silvestre MD [address] [place] [address] Referral ID Status Reason Start Date Expiration Date V isits Requested Visits Authorized [id number] New Request 11/19/2021 12/14/2022 1 1 Reason Comments Skin Lesion Specialty Diagnoses / Procedures Referred By Jason t Referred To Contact Diagnoses Hx of total hip arthroplasty, right Procedures XR HIP WITH PELVIS RIGHT Dashawn Silvestre MD [address] [place] [address] Referral ID Status Reason Start Date Expiration Date V isits Requested Visits Authorized [id number] New Request 01/05/2022 01/30/2023 1 1 Reason Comments Pain Condition Update Reason Comments Leg Swelling Leg Pain Nausea Specialty Diagnoses / Procedures Referred By Jason t Referred To Contact Diagnoses Cellulitis Referral ID Status Reason Start Date Expiration Date Visits Re quested Visits Authorized [id number] 1 1 Reason Comments Consult Lung nodule and CT f /u Specialty Diagnoses / Procedures Referred By Contac t Referred To Contact Pulmonary Disease / Pulmonology Diagnoses Pulmonary nodule Muna Otto MD [address] [facility] Tim John [address] [place] [address] Carson Gallagher MD [address] [facility] [address] [place] [address] Referral ID Status Reason Start Date Expiration Date Visits Requested Visits Authorized [id number] Pending Review Specialty Services Required/Pat ient's Best Interest 01/20/2022 01/20/2023 1 1 Reason Comments Leg Swelling Specialty Diagnoses / Procedures Referred By Contac t Referred To Contact Diagnoses PAD (peripheral artery disease) ([facility]) Referral ID Status Reason Start Date Expiration Date Visits Re quested Visits Authorized [id number] 1 1 Specialty Diagnoses / Procedures Referred By Contac t Referred To Contact Diagnoses Hx of total hip arthroplasty, right Procedures XR HIP WITH PELVIS RIGHT Scar Ortega, GAS JOCKEY-TRANSPORTATION CONSULTANT [address] [place] [address] Referral ID Status Reason Start Date Expiration Date V isits Requested Visits Authorized [id number] New Request 07/06/2022 07/31/2023 1 1 Reason Comments Follow-up Reason Onset Date Comments Medication Refill 08/30/2022 Reason Comments Foot Injury Shortness of Breath Specialty Diagnoses / Procedures Referred By Contac t Referred To Contact Diagnoses Peripheral edema Elevated troponin Community acquired pneumonia of left lower lobe of lung Referral ID Status Reason Start Date Expiration Date Visits Re quested Visits Authorized [id number] 1 1 Reason Comments Follow-up [id number]-C/P LT FEM-PERONEAL BYPASS 09/07/18, (YAMILE AND DUPLEX BYPASS GRAFT PRIOR TODAY). Patient complains of bilateral leg pain. Referral ID Status Reason Start Date Expiration Date V isits Requested Visits Authorized [id number] New Request 08/01/2023 08/25/2024 1 1 Reason [...] Pain Specialty Diagnoses / Procedures Referred By Contmelissa t Referred To Contact Diagnoses Claudication Right leg pain PAD (peripheral artery disease) (HCC) Peripheral artery disease Referral ID Status Reason Start Date Expiration Date Visits Re quested Visits Authorized [id number] 1 1 Reason Comments Hospital Follow-up Reason [...] Tristin Powell Admit Date: 1070905 MR #: [id number] : 1940 The H&P has been reviewed and the patient has been examined. I concur with the findings of the H&P. There are no significant changes. It is appropriate to proceed with the planned procedure. Ben Jiang MD 09/07/2018 3:18 PM VASCULAR SURGERY CONSULT NOTE 09/06/18 Patient Name: Tristin Powell : 1940 MR #: [id number] Admit Date: 1070905 ----- Nicolas Addendum As below, 78 y.o. male with a h/o PAD, HTN, HLD, CAD s/p cardiac stent (x7, 3063-4643), CABG (x3vv, 2017; L [facility]), L ankle ORIF who p/w acute on chronic critical limb ischemia and claudication. Patient states he has been having claudication symptoms in bilateral lower extremities for the past 2-3 years. Patient states that although he has been active the past several months, his symptoms have progressively worsened. In June, the patient visited a environmental auditor to evaluate his left foot, in which [...] Dr. Sarabia. Miryam Rincon MD PGY-2 Surgery [phone] After 5pm and on Weekends, please page [phone] (Surgery Computer Operations Technician pony roll finisher) ----- Assessment and Plan: Tristin Powell is a 78 y.o. male with a PMH of PVD s/p LLE angio with stent placement 08/09, prostate cancer, PVD, CAD, HTN and a PSH of L ankle ORIF and thriple CABG in october 2016 with L saphenous vein harvested who presented to [facility] 09/04/2018 as a transfer from [place] for second opinion regarding left lower extremity pain and discoloration Chronic LLE ischemia - Patient underwent LLE angiogram with popliteal ballooning and stent 08/09/2018 in [place], sent on aspirin and xarelto - Angiography [...] prostate cancer presents as a transfer from [place] for concerns for left lower extremity pain and discoloration that has progressivley worsened. He has had pain and claudication symptoms for years which prompted him to to be seen 08/09 were he had ballooning and stent placement to left popliteal. He represented 1/3 with increased LLE pain that was never really helped by the stent. Pain doesn't allow him sleep. While at the [facility] he was planned to undego intervention the day of transfer but requested [facility] transfer for second opinion. Review of Systems: [...] 09/05/2018 Physician(s): Ben Hahn MD Cath #: [id number] Ref. 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 Dyslipidemia: Yes Hypertension: Yes Pre-OP Diagnosis/Indication: Dale Class/Limb Ischemia: 4 - Ischemic rest pain [...] amputation COMMENTS: No Complications ____ Equipment: Sheath(s) Rated People 5F 10CM PINNACLE SHEATH COOK MEDICAL 6F 45CM .038 FLEXOR CHECKFLO ANSEL1 SHEATH Wire(s) [employer] .035 X 150CM FIXED J WIRE Catheter(s) [employer] Focus 5F MP TEMPO AQUA CATHETER Other [employer] .035 CXI ANGLED SUPPORT CATHETERS SHER VASCULAR [...] Date: 09/05/2018 Non-Invasive Vascular Patient: SHERRY Bazan [facility] Rec#: [id number] (Age): 1940(78y) Study Date: 09/05/2018 Room#: G93 Type: Inpatient Sex: M [place]: Pierce Moreau DO, RPVI Referring: LEVY Point Of Care Technician: Rima Celestin RD, RVT Point Of Care Technician: Deena Pelayo RDCS RVT Procedure Info: 65393 Study Quality: Lower Arterial Duplex: adequate Diagnosis: [...] PSV Name Value Units EIA 83.2 cm/sec NURSE RESEARCHER 95.6 cm/sec Profunda 85.5 cm/sec SFA - prox -25 cm/sec SFA - mid -67.2 cm/sec SFA - dist 58.2 cm/sec Popliteal - dist 0 cm/sec COLLEGE OR UNIVERSITY REGISTRAR 6.8 cm/sec Pre Stenosis #1 9.3 cm/sec [...] Esau Alejandro MD General Surgery PGY-1 Pager [phone] *After 5pm, or on weekends, page [phone]* Associated attestation - Mohsen Sarabia MD - 09/06/2018 4:46 PM EST Patient seen and examined. I have personally reviewed all pertinent labs, radiological studies and records. I have personally examined the patient and agree with resident/FRONT END JAVA DEVELOPER/PA assessment and plan with the following additional [...] and Physical Note 09/04/18 Tristin Powell 1940 [id number] Assessment/Plan: Tristin Powell is a 78 y.o. male with a history of PVD s/p LLE angio with stent placement 08/09, prostate cancer, PVD, CAD, HTN who presented to [facility] 09/04/2018 as a transfer from [place] for second opinion regarding left lower extremity [...] 08/09, Discharged on xeralto. Returned to the [facility] with worsening pain and discoloration of [...] prostate cancer presents as a transfer from [place] for concerns for left lower extremity pain and discoloration that was worse for two days. HE has had pain since 08/09 were he had left foot pain and had angioplasty with stent placement to left popliteal . Noted from RN at [facility] to have no No DP pulses by palpation or doppler. Positive popliteal pulse noted.blue/reddish color for the past 2 days . Pain doesn't allow him sleep. While at the [facility] he was planned to undego intervention the day of transfer but requested [facility] transfer for second opinion. [facility] records reviewed as above Patient currently [...] Tristin Powell Medication Instructions Prior to Surgery LOLA:[id number] Printed on:09/04/182146 Medication Information Take last dose on Take [...] Tristin Powell Admit Date: 2060905 MR #: [id number] : 1940 The H&P has been reviewed [...] Electronically signed by the above physician 10/08/18 [facility] DAILY PROGRESS NOTE Assessment and Plan 78 y.o. male patient of Flash Lovelace MD with history of PAD, CAD and HTN that presented to [place] with need for left foot partial amputation. [...] IV Vancomycin. Monitor local erythema -Radiographs pending -[facility] c'sed for medical management and preoperative clearance. -WBAT to LLE -DVT ppx lovenox. -Patient discussed with Dr. Mann who agrees with assessment and plan. 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 Pt with some local erythema will monitor response to Abx. Plan for OR on Monday (10/08/18) for left midfoot amputation. [facility] consulted for medical management. Patient will require preoperative risk stratification. Appreciate [facility] assistance. Further plan per Dr. Mann HISTORY OF PRESENT ILLNESS Tristin Powell is a 78 y.o. 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 Pt was seen by Dr. Mann at the wound care clinic earlier and was admitted for IV antibiotics and surgical intervention. Pt recently underwent bypass surgery at [facility] and has had improved blood flow and demarcation of gangrene since then. 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 Pt denies any active lung disease. Pt [...] COMPLETION ANGIOGRAM; Surgeon: Mohsen Sarabia MD; Location: [facility] NEURO OR; Service: Cardiovascular CARDIAC CATHETERIZATION Left 09/05/2018 Procedure: Angio Lower Extremity; Surgeon: Ben Hahn MD; Location: [facility] HEAD OF STRATEGY; Service: Cardiovascular CARDIAC SURGERY STENT PLACEMENT Medications [...] agree with the findings and the plan. [facility] consulted for medical management and clearance for anticipated left foot TMA and DEREK on Monday. Patient known to Dr. Sarabia, vascular surgery at [facility], and will follow with her next week [...] The patient will be followed post-operatively. Flynn aMnn DPM, FACFAS Electronically signed by the above physician 10/04/18 in this encounter Sakshi Gamboa LSW - 09/11/2018 4:19 PM Flynn Alvarez DPM - 09/10/2018 5:03 PM Chrystal Sanders S - 09/10/2018 3:28 PM Marsha Leon OT - 09/10/2018 3:25 PM EST Consult Notes (unrecognized section and content) Associated Order(s): IP CONSULT TO CARE MANAGEMENT COMPLEX DISCHARGE Date: 09/11/2018 Time: 4:19 PM Patient Name: Tristin Powell Date of : 1940 Sex: Male BOW MAKER MACHINE TENDER met w/pt and daughter at bedside to discuss d/c recommendations. Daughter reports pt will be going home with 24 hour care from his 7 children. Pt requested a SNF list and will keep his options open. BOW MAKER MACHINE TENDER provided list and pt will notify BOW MAKER MACHINE TENDER with choice of SNF or home tomorrow. BOW MAKER MACHINE TENDER notified pt that she will not be [...] PODIATRY Patient Name: Tristin Powell MR #: [id number] : 1940 Physicians: Flash Lovelace MD (Family); [...] extremity. He eventually underwent intervention in the [place], [place] area in June and July of [...] COMPLETION ANGIOGRAM; Surgeon: Mohsen Sarabia MD; Location: [facility] NEURO OR; Service: Cardiovascular CARDIAC CATHETERIZATION Left 09/05/2018 Procedure: Angio Lower Extremity; Surgeon: Ben Hahn MD; Location: [facility] STRATEGY; Service: Cardiovascular CARDIAC SURGERY STENT PLACEMENT Family [...] PLT 234 09/10/2018 No results found for: [id number] results found for: SEDRATE No results found [...] artery disease involving coronary bypass graft of [place] heart without angina pectoris ARTERIOSCLEROSIS OF CORONARY [...] Mod, Two person assist(x2 trials with FWW) Pump House Operator: Wheeled walker, 2 people, Gait belt Gait/Locomotion [...] medications Prior Level of Function Level of [place]: Independent with ADLs and functional transfers, Independent with homemaking with ambulation Lives With: Alone 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) Comments: planning to provide 20/03 assist from 7 kids Past Medical History: Diagnosis Date Avascular necrosis of bone of hip (HCC) Claudication (HCC) Herpes zoster Hyperlipidemia Hypertension Prostate cancer (HCC) Vascular disease Past Surgical History: Procedure Laterality Date ANKLE SURGERY Left BYPASS PERONEAL FEMORAL Right 09/07/2018 Procedure: BYPASS PERONEAL FEMORAL, RIGHT SAPHENOUS VEIN HARVEST, COMPLETION ANGIOGRAM; Surgeon: Mohsen Sarabia MD; Location: [facility] NEURO OR; Service: Cardiovascular CARDIAC CATHETERIZATION Left 09/05/2018 Procedure: Angio Lower Extremity; Surgeon: Ben Hahn MD; Location: [facility] STR[facility]GY; Service: Cardiovascular CARDIAC SURGERY STENT PLACEMENT For [...] roles. 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: planning to provide 20/03 assist from 7 kids Past Medical History: Diagnosis Date Avascular necrosis of bone of hip (HCC) Claudication (HCC) Herpes zoster Hyperlipidemia Hypertension Prostate cancer (HCC) Vascular disease Past Surgical History: Procedure Laterality Date ANKLE SURGERY Left BYPASS PERONEAL FEMORAL Right 09/07/2018 Procedure: BYPASS PERONEAL FEMORAL, RIGHT SAPHENOUS VEIN HARVEST, COMPLETION ANGIOGRAM; Surgeon: Mohsen Sarabia MD; Location: [facility] NEURO OR; Service: Cardiovascular CARDIAC CATHETERIZATION Left 09/05/2018 Procedure: Angio Lower Extremity; Surgeon: Ben Hahn MD; Location: [facility] STRATEGY; Service: Cardiovascular CARDIAC SURGERY STENT PLACEMENT For [...] Tristin Powell Admit Date: 1070905 MR #: [id number] : 1940 Consulting Physicians: [facility] Pain Service Assessment and Plan: Pain of left lower extremity Assessment & Plan . The patient did note that he becomes somewhat fatigued after taking medication, but he has not really been sleeping well. At this point, I think would be appropriate, since he has a plan for the operating room tomorrow, to put him on an opioid naive COTTON JAMMER. We will continue to monitor. I did talk extensively with the family about COTTON JAMMER safety and only allowing him to push the button. He does have quite a doting family and they all seem to be on board, understanding the safety concerns that this might present in the event that the patient is to sleep and someone is to press the button for him. We would see how his pain syndrome develops after surgery, but COTTON JAMMER is probably the appropriate treatment. I would [...] Name: Tristin Powell : 1940 MR #: [id number] Admit Date: 1070905 ----- Nicolas Addendum As below, 78 y.o. male with a h/o PAD, HTN, HLD, CAD s/p cardiac stent (x7, 2879-4649), CABG (x3vv, 2017; L [facility]), L ankle ORIF who p/w acute on chronic critical limb ischemia and claudication. Patient states he has been having claudication symptoms in bilateral lower extremities for the past 2-3 years. Patient states that although he has been active the past several months, his symptoms have progressively worsened. In June, the patient visited a environmental auditor to evaluate his left foot, in which he had noted some decreased sensation, increased pain, and occasional cyanosis. No intervention conducted at the time, however the patient presented to OSH in mid July for acutely worsened left [...] Dr. Sarabia. Miryam Rincon MD PGY-2 Surgery [phone] After 5pm and on Weekends, please page [phone] (Surgery Computer Operations Technician pony roll finisher) ----- Assessment and Plan: Tristin Powell is a 78 y.o. male with a PMH of PVD s/p LLE angio with stent placement 08/09, prostate cancer, PVD, CAD, HTN and a PSH of L ankle ORIF and thriple CABG in october 2016 with L saphenous vein harvested who presented to [facility] 09/04/2018 as a transfer from [place] for second opinion regarding left lower extremity pain and discoloration Chronic LLE ischemia - Patient underwent LLE angiogram with popliteal ballooning and stent 08/09/2018 in [place], sent on aspirin and xarelto - Angiography [...] prostate cancer presents as a transfer from [place] for concerns for left lower extremity pain and discoloration that has progressivley worsened. He has had pain and claudication symptoms for years which prompted him to to be seen 08/09 were he had ballooning and stent placement to left popliteal. He represented 1/3 with increased LLE pain that was never really helped by the stent. Pain doesn't allow him sleep. While at the [facility] he was planned to undego intervention the day of transfer but requested [facility] transfer for second opinion. Review of Systems: [...] 09/05/2018 Physician(s): Ben Hahn MD Cath #: [id number] Ref. 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 Dyslipidemia: Yes Hypertension: Yes Pre-OP Diagnosis/Indication: Deann [...] amputation COMMENTS: No Complications ____ Equipment: Sheath(s) Rated People 5F 10CM PINNACLE SHEATH Naroomi 6F 45CM .038 FLEXOR CHECKFLO ANSEL1 SHEATH Wire(s) [employer] .035 X 150CM FIXED J WIRE Catheter(s) Celnyx 5F MP TEMPO AQUA CATHETER Other Naroomi .035 CXI ANGLED SUPPORT CATHETERS SHER VASCULAR 6F PROGLIDE CLOSURE Peripheral Angiography: Access site: Femoral Right Retrograde arterial with ultrasound guidance Non Selective: Aorta with ilio-fem runoff Selective: Tibioperoneal artery, retrograde - left See Nursing Notes for further details Signed By Ben Hahn MD On 09/05/2018 3:50:45 PM Ben Hahn A MD ____ Ultrasound Duplex Arterial Leg Left Result Date: 09/05/2018 Non-Invasive Vascular Patient: SHERRY Bazan Med Rec#: [id number] (Age): 1940(78y) Study Date: 09/05/2018 Room#: G93 Type: Inpatient Sex: M Reading: Pierce Moreau DO RPLUIZA Referring: LEVY Point Of Care Technician: Rima Celestin RDCS, RVT Point Of Care Technician: Deena Pelayo RDCS RVT Procedure Info: [id number] Study Quality: Lower Arterial Duplex: adequate Diagnosis: [...] PSV Name Value Units EIA 83.2 cm/sec NURSE RESEARCHER 95.6 cm/sec Profunda 85.5 cm/sec SFA - prox -25 cm/sec SFA - mid -67.2 cm/sec SFA - dist 58.2 cm/sec Popliteal - dist 0 cm/sec COLLEGE OR UNIVERSITY REGISTRAR 6.8 cm/sec Pre Stenosis #1 9.3 cm/sec Within Stenosis #1 67.2 cm/sec Distal Stenois #1 58.2 cm/sec Left Stent #1 Name Value Units Pre 58.2 cm/sec Orig/Prox 0 cm/sec Mid 0 cm/sec Dist 0 cm/sec Distal To 6.8 cm/sec Electronically signed at 09/05/2018 11:55:51 by: Pierce Moreau DO, JEOVANYVI Xr Comparison Import Result Date: 09/04/2018 This order has been auto-finalized and does not contain a result. Esau Alejandro MD General Surgery PGY-1 Pager [phone] *After 5pm, or on weekends, page [phone]* Associated attestation - Mohsen Sarabia MD - 09/06/2018 4:46 PM EST Patient seen and examined. I have personally reviewed all pertinent labs, radiological studies and records. I have personally examined the patient and agree with resident/FRONT END JAVA DEVELOPER/PA assessment and plan with the following additional [...] meantime. Associated Order(s): IP CONSULT TO CARDIOLOGY [facility] Physicians Name: Tristin Powell Age: 78 y.o. Date: September 05, 2018 ASSESSMENT & PLAN: Critical lower limb ischemia Assessment & Plan Pt s/p LLE critical limb ischemia Dale class 4 rest pain with distal discoloration to his toes. Pt is s/p L pop angioplasty with stent placement 08/09 at [facility] in [place], [place]. Pt was placed on Xarelto and [...] artery disease involving coronary bypass graft of [place] heart without angina pectoris Assessment & Plan [...] ischemia. Pt s/p LLE critical limb ischemia Dale class 4 rest pain. Pt is s/p L pop angioplasty with stent placement 08/09 at [facility] in [facility] with Dr. Vogt. Pt was placed on Xarelto and ASA. Pt represented to [facility] 08/30 with increased LLE pain. Pt was scheduled to have a vascular surgical procedure at [facility] in [facility] and requested to be tx to [facility]. PAST MEDICAL HISTORY: Past Medical History: Diagnosis [...] No palpitations, chest pain/pressure Respiratory No SOB, ALM, wheezing, cough GI No N/V/D/C or abdominal [...] to contact me. Respectfully, Yasmeen Diaz, MSN, FRONT END JAVA DEVELOPER-C [facility] V[facility] Physicians Associated attestation - Campos Guerra MD - 09/05/2018 11:01 AM EST [facility] Physicians Vascular Staff: I saw and evaluated the patient with vascular team during inpatient rounds. I discussed the harper findings and I agree with assessment and plan as documented by our vascular TRANSPORTATION CONSULTANT. Mr. Tristin Powell is a 78 y.o. with male left lower extremity acute on chronic limb ischemia (Dale grade 1 viable limb): Patient is a [...] you for consulting vascular. Raulito Guerra MD [facility] Vascular Medicine [facility] 09/05/18 10:54 AM in [...] assistance Transfers Sit to Stand: Contact guard Pump House Operator: Wheeled walker Gait/Locomotion Gait Assistance: Contact guard Assistive Device: Wheeled walker Distance: 5 Feet Pattern: L decreased step length Weight Bearing Status: Able to maintain, Non-weight bearing Home Living Type of Home: House Home Layout: One level Home Equipment: Walker, Wheeled Walker, Wheelchair-electric Prior Level of Function Level of [place]: Independent with ADLs and functional transfers, Independent with homemaking with ambulation Lives With: Alone Receives Help From: Family 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 Procedure: LEFT MIDFOOT AMPUTATION; Surgeon: Flynn Mann DPM; Location: [facility] OR; Service: Podiatry ANKLE SURGERY Left BYPASS PERONEAL FEMORAL Right 09/07/2018 Procedure: BYPASS PERONEAL FEMORAL, RIGHT SAPHENOUS VEIN HARVEST, COMPLETION ANGIOGRAM; Surgeon: Mohsen Sarabia MD; Location: [facility]; Service: Cardiovascular CARDIAC CATHETERIZATION Left 09/05/2018 Procedure: Angio Lower Extremity; Surgeon: Ben Hahn MD; Location: [facility]; Service: Cardiovascular CARDIAC SURGERY 2016 triple bypass EYE SURGERY Right 2014 FOOT [...] roles. 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 The patient's compliance is a pit crane operator and awareness of own capacity and performance is a pit crane operator to return to prior level of function. [...] Wheelchair-electric Prior Level of Function Level of [place]: Independent with ADLs and functional transfers, Independent with homemaking with ambulation Lives With: Alone Receives Help From: Family 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 Procedure: LEFT MIDFOOT AMPUTATION; Surgeon: Flynn Mann DPM; Location: [facility] OR; Service: Podiatry ANKLE SURGERY Left BYPASS PERONEAL FEMORAL Right 09/07/2018 Procedure: BYPASS PERONEAL FEMORAL, RIGHT SAPHENOUS VEIN HARVEST, COMPLETION ANGIOGRAM; Surgeon: Mohsen Sarabia MD; Location: [facility]; Service: Cardiovascular CARDIAC CATHETERIZATION Left 09/05/2018 Procedure: Angio Lower Extremity; Surgeon: Ben Hahn MD; Location: [facility]; Service: Cardiovascular CARDIAC SURGERY 2017 triple bypass [...] Tristin Powell Admit Date: [id number] MR #: [id number] : 1940 Physicians: Flash Lovelace MD (Family); Flynn Mann, Torres (Referring) Chief Complaint/Reason for Visit: Upper GI [...] 7.7/24.1 at which time he was in [facility]. At that time he was found to [...] MIDFOOT AMPUTATION; Surgeon: Flynn Mann DPM; Location: [facility] OR; Service: Podiatry ANKLE SURGERY Left BYPASS PERONEAL FEMORAL Right 09/07/2018 Procedure: BYPASS PERONEAL FEMORAL, RIGHT SAPHENOUS VEIN HARVEST, COMPLETION ANGIOGRAM; Surgeon: Mohsen Sarabia MD; Location: [facility]; Service: Cardiovascular CARDIAC CATHETERIZATION Left 09/05/2018 Procedure: Angio Lower Extremity; Surgeon: Ben Hahn MD; Location: [facility]; Service: Cardiovascular CARDIAC SURGERY 2017 triple bypass [...] 8 (eight) hours . 09/13/18 10/13/18 Yes Roejlio Woody MD metoprolol tartrate (LOPRESSOR) 50 MG [...] Index Result Date: 09/10/2018 Non-Invasive Vascular Patient: [facility] Rec#: [id number] (Age): 1940(78y) Study Date: 09/10/2018 Room#: 8506 Type: Inpatient Sex: M Reading: [place] Reading: Ben Hahn MD, RPVI Referring: Esau Alejandro Point Of Care Technician: Andre Madrid RDCS/RVLatricia Procedure Info: 27839 Study Quality: Lower Arterial Doppler: adequate Diagnosis: [...] Result Date: 10/08/2018 REPORT Patient: SHERRY Bazan [facility] Rec#: [id number] (Age): 1940(78y) Height: 188(cm)/73(in) Study Date: 10/08/2018 Weight: 99(kg)/218(lbs) Room#: 2456 BSA: [id number] Type: Inpatient Loc: [facility] Echo Lab Sex: M Reading: MD Nikhil Davalos Referring: AARON CHOI DANIEL Paper Pattern Folder: Geovani Matson RDCS, RVT History: Hyperlipidemia Hypertension. Valvular disease. Diagnosis: ICD-10-PCS Encounter for preprocedural cardiovascular examination (Z01.810) Cardiac Complications, not classified (997.1) CPT Code(s): ECHO COMPLETE W/ DOPPLER (36047) HCPCS Code C8923 Echo Full w/ contrast. [...] 0.9) PV peak gradient 3.23 mmHg none MA end-diastolic Vmax 1.41 m/sec none PA end-diastolic pressure 12.95 mmHg none PV acceleration time 77 msec none Electronically Signed at 10/08/2018 17:26:05 by: Emmanuel Connor MD [facility] Xr Ankle Left 3+ Views (standard) [...] of the distal fibula. Extensive vascular calcifications. [facility] ([email or web address]) Workstation ID: [id number] Xr Foot Left 2 [...] the midfoot Chopart articulations. Surgical drain present. /[facility] Workstation ID: [id number] Xr Foot Left 3+ Views (standard) Result [...] of the distal fibula. Extensive vascular calcifications. [facility] ([email or web address]) Workstation ID: [id number] Assessment Detail: Associated attestation [...] further. Associated Order(s): IP CONSULT TO HOSPITALIST [facility] CONSULTATION NOTE Patient Name: Tristin Powell : 1940 MR #: [id number] Admit Date: 2060905 Physicians: Flash Lovelace MD (Family); Flynn Mann, * (Referring) Tristin Powell is a 78 y.o. male patient of Flash Lovelace MD with history of PAD, CAD and HTN that presented to [place] with need for left foot partial amputation. [...] Discharge Location: TBD Estimated Discharge Date: TBD Outpatient Testing: none Chief Complaint: [facility] consulted by Flynn Mann DPM for medical management History of Present Illness: This is a 78 y/o male with past medical history of PAD, CAD and HTN that presented to [place] with need for left foot partial amputation. [...] COMPLETION ANGIOGRAM; Surgeon: Mohsen Sarabia MD; Location: [facility]; Service: Cardiovascular CARDIAC CATHETERIZATION Left 09/05/2018 Procedure: Angio Lower Extremity; Surgeon: Ben Hahn MD; Location: [facility]; Service: Cardiovascular CARDIAC SURGERY STENT PLACEMENT Family [...] Information Primary Caregiver: Self Accompanied by/Relationship: none Worship/Cultural Factors: none Legal Documentation Advance Directives: (none) Resuscitation Status: Resuscitate Resources Financial Resources: Other (Comment)([employer] Medicare insurance confirmed) Community Resources: Other (Comment)(PCP Dr. Lovelace [phone]) Discharge Plan Shared UM/CC and RN Source of Information: Patient Contact Phone Number: emergency contact Amina Zaidi p:[phone] Living Arrangements: Alone Support Systems: Family members Functional Status: Independent Type of Residence: Private residence(1 floor plan) Prior to Admission Home Care Services: Yes Type of Current Home Care Services: Home health care Current Agency Name: [facility] Current Home Equipment: Walker, Wheeled walker, Toilet seat electrical mechanic, Tub/Shower chair Insurance Coverage for Prescriptions: Yes [...] needs HH services for discharge. [facility] ph# [phone] / fx# [phone] Called agency and left a message requesting a return phone call to [phone] to confirm services. Faxed HH bundle to agency. Will need Amb HH order placed for physician to co-sign when final discharge needs are known. [phone] Received call from [facility]. Patient is current with them for PT/OT/RN services. in this encounter Machelle Cole, KULDEEP - 09/05/2018 8:46 AM Machelle Robb, KULDEEP - 09/05/2018 7:50 AM Donya More RN [...] Associated Order(s): ECG 12-LEAD ED PROVIDER NOTE [facility] EMERGENCY DEPARTMENT NAME: Tristin Powell AGE: 78 y.o. : 1940 VISIT DATE: 09/04/2018 CSN: [id number] PCP: Flash Lovelace MD Chief Complaint Patient presents with Blood Clot HPI Patient transferred from [facility] for left leg peripheral arterial disease and [...] the family requested to be transferred to [facility] for a second opinion. Accepted by the [...] - 79 13 95 % - - 01/08/19 1909 147/67 98.6 F (37 C) Oral [...] ST segments normal QRS axis: normal normal MA interval normal QRS interval QT Interval: 474 [...] Referral note: Call from Dann Chairez MD [phone] Contact Role: Referring Provider Entered By: KULDEEP [...] to a larger hospital and are requesting [facility]. Call to KULDEEP Reynolds [phone] Contact Role: Nurse Entered By: KULDEEP Bailey [...] Note Multiple surgical sites from 09/07. Incisions TOBACCO SIEVE OPERATOR with minimal bruising noted at sites. Intact, approximated incisions. Temperature WNL. Will continue to monitor. TRISTIN POWELL [id number] 1940 DATE 09/07/2018 OPERATIVE REPORT SURGEON MOHSEN SARABIA MD COUNTY SURVEYOR BEN JIANG MD PREOPERATIVE DIAGNOSIS Subacute limb ischemia of the left lower extremity. POSTOPERATIVE DIAGNOSIS Subacute limb ischemia of the left lower extremity. PROCEDURE PERFORMED Left femoral to peroneal bypass using contralateral reverse greater saphenous vein. COUNTY SURVEYOR There was no qualified resident available to [...] cc. MOHSEN SARABIA MD D 09/09/2018 10:46 [id number] T 09/09/2018 14:36 JPW/MODL Brief Post Operative Note Patient Name: Tristin Powell : 1940 (78 y.o.) Date of Service: 09/04/2018 - 09/08/2018 CSN: [id number] Procedure(s): BYPASS PERONEAL FEMORAL, RIGHT SAPHENOUS VEIN HARVEST, COMPLETION ANGIOGRAM Pre-Operative Diagnoses: * acute left lower extremity ischemia Post-Operative Diagnoses: * Same as Pre-Op Diagnosis Surgeon(s) and Role: * Mohsen Sarabia MD - Primary * Ben Jiang MD - Assisting Anesthesiologist: Natalie Vieira MD; Andrew Topete MD Sheet Pile Hammer Operator: Megan Arguelles RN; Odessa Cuellar RN Sheet Pile Hammer Operator Relief: Sakshi Silvestre RN; Ben Calvillo RN; [...] Implant Name Type Inv. Item Serial No. Wheelabrator Operator Lot No. LRB No. Used Action HEMOSTAT 2 X 4IN SURGICEL FIBRILLAR - [id number] HEMOSTAT 2 X 4IN SURGICEL FIBRILLAR ETHICON [id number] Left 1 Implanted Drain(s): Urethral Catheter Non-latex;Straight-tip [...] Pain of left lower extremity -Presented to [facility] 09/04/2018 as a transfer from [place] for second opinion regarding left lower extremity [...] in pain -Reports pain is uncontrolled with COTTON JAMMER Dilaudid pump, and pain does not decrease [...] CTS consult for tibial bypass Please call [phone] for questions (available 20/03) Discussed pt with Dr. Guerra, jayashree pt for a LLE angiogram due to [...] artery disease involving coronary bypass graft of [place] heart without angina pectoris Patient with remote [...] pop angioplasty with stent placement 08/09 at [facility] in [place], [place]. Pt was placed on Xarelto and [...] vehicle. [facility] Called report to Chelsea Salinas RN at the [facility] [place]. Patient to follow-up GI outpatient. Patients pain [...] follow with Dr. Mann as out-patient at [facility] at [phone] next 10-18-18. Flynn Mann DPM, FACFAS Electronically signed by the above physician 10/09/18 POC went over and updated, will continue to monitor. TIN GENAO [id number] 1940 DATE 10/08/2018 OPERATIVE REPORT SURGEON FLYNN MANN DPM COUNTY SURVEYOR OFE WOOD DPM, RESIDENT ANESTHESIOLOGIST MACHELLE SARABIA MD PREOPERATIVE DIAGNOSIS Left foot gangrene. POSTOPERATIVE DIAGNOSIS Left foot gangrene. PROCEDURES 1. Left midfoot amputation at [facility] level 2. Left Tendo-Achilles lengthening [...] RESIDENT FLYNN MANN DPM D 10/08/2018 08:53 [id number] T 10/08/2018 09:15 /MODL Brief Post Operative Note Patient Name: Tristin Powell : 1940 (78 y.o.) Date of Service: 10/08/2018 [facility]: [id number] Procedure(s): 1. TENDO ACHILLES LENGTHENING, LEFT 2. LEFT MIDFOOT AMPUTATION Pre-Operative Diagnoses: * LEFT FOOT GANGRENE Post-Operative Diagnoses: * SAME Surgeon(s) and Role: * Flynn Mann DPM - Primary * Ofe Wood DPM - Resident - Assisting Anesthesiologist: Machelle Sarabia MD FLOORING MACHINE OPERATOR: Nikia Mcdermott CRNA Sheet Pile Hammer Operator: Sussy Hoskins RN Relief Scrub: Wagner Qureshi [...] content) Team Status: Active Member Role Status Faisal Lovelace MD Primary Care Provider Active Team Status: Inactive Member Role Status Faisal Lovelace MD Primary Care Provider Active Haven Malcolm NP-C Attending Provider Active Director Report Relationship Specialty Start Date End Date Flash Lovelace MD [address] [place] [address] PCP - General Family Medicine 07/31/18 Director Report Relationship Specialty Start Date End Date Flash Lovelace MD [address] [place] [address] PCP - General Family Medicine 07/31/18 Director Report Relationship Specialty Start Date End Date Flash Lovelace MD [address] [place] [address], [place] [address] PCP - General Family Medicine 09/04/18 Director Report Relationship Specialty Start Date End Date Flash Lovelace MD [address] [place] [address] PCP - General Family Medicine 07/31/18 Director Report Relationship Specialty Start Date End Date Flash Lovelace MD [address] [place] [address] PCP - General Family Medicine 09/04/18 Director Report Relationship Specialty Start Date End Date Flash Lovelace MD [address] [place] [address] PCP - General Family Medicine 09/04/18 Director Report Relationship Specialty Start Date End Date Flash Lovelace MD [address] [place] [address] PCP - General Family Medicine 09/04/18 Director Report Relationship Specialty Start Date End Date Flash Lovelace MD [address] [place] [address] PCP - General Family Medicine 09/04/18 Director Report Relationship Specialty Start Date End Date Flash Lovelace MD [address] [place] [address] PCP - General Family Medicine 09/04/18 Team Status: Inactive Member Role Status Dates Flash Lovelace MD Primary Care Provider Active Cristian Beaver MD Attending Provider Active Director Report Relationship Specialty Start Date End Date Flash Lovelace MD [address] [place] [address] PCP - General Family Medicine 09/04/18 Director Report Relationship Specialty Start Date End Date Flash Lovelace MD [address] [place] [address] PCP - General Family Medicine 07/31/18 Director Report Relationship Specialty Start Date End Date Flash Lovelace MD [address] [place] [address] PCP - General Family Medicine 07/31/18 Director Report Relationship Specialty Start Date End Date Flash Lovelace MD [address] [place] [address] PCP - General Family Medicine 09/04/18 Director Report Relationship Specialty Start Date End Date Flash Lovelace MD [address] [place] [address] PCP - General Family Medicine 09/04/18 Director Report Relationship Specialty Start Date End Date Flash Lovelace MD [address] [place] [address] PCP - General Family Medicine 09/04/18 System, Provider Not In Poly Area Supervisor 11/09/22 Director Report Relationship Specialty Start Date End Date Flash Lovelace MD [address] [place] [address] PCP - General Family Medicine 09/04/18 System, Provider Not In Poly Area Supervisor 11/09/22 Director Report Relationship Specialty Start Date End Date Flash Lovelace MD [address] [place] [address] PCP - General Family Medicine 09/04/18 System, Provider Not In Poly Area Supervisor 11/09/22 Director Report Relationship Specialty Start Date End Date Flash Lovelace MD [address] [place] [address] PCP - General Family Medicine 07/31/18 Director Report Relationship Specialty Start Date End Date Flash Lovelace MD [address] [facility] [place] [address] PCP - General Family Medicine 07/31/18 Team Status: Inactive Member Role Status Dates Flash Lovelace MD Primary Care Provider Active S tart: October 12, 2023 End: October 12, 2023 Cristian Beaver MD Attending Provider Active S tart: October 12, 2023 End: October 12, 2023 Team Status: Active Member Role Status Faisal Lovelace MD Primary Care Provider Active S tart: October 12, 2023 Cristian Beaver MD Attending Provider, Other Provider Active Start: October 12, 2023 Team Status: Inactive Member Role Status Faisal Lovelace MD Primary Care Provider Active S tart: October 17, 2023 End: October 17, 2023 Eliezer Carvalho MD Attending Provider Active Start: October 17, 2023 End: October 17, 2023 Duke Dunbar MD Referring Provider Active Start: October 17, 2023 End: October 17, 2023 Director Report Relationship Specialty Start Date End Date Flash Lovelace MD [address] [facility] [address] [place] [address] PCP - [employer] 08/28/17 Flash Lovelace MD [address] [facility] [address] [place] [address] PCP - General Family Medicine 03/09/23 Director Report Relationship Specialty Start Date End Date Flash Lovelace MD [address] [facility] [address] [place] [address] PCP - [employer] 08/28/17 Flash Lovelace MD [address] [place] [address] PCP - General Family Medicine 03/09/23MondayMary LPN [address] [place] [address] Licensed Practical Nurse Family Medicine 06/21/24 Director Report Relationship Specialty Start Date End Date Flash Lovelace MD [address] [place] [address] PCP - [employer] 08/28/17 Flash Lovelace MD [address] [place] [address] PCP - General Family Medicine 03/09/23MondayMary LPN [address] [place] [address] Licensed Practical Nurse Family Medicine 06/21/24 Director Report Relationship Specialty Start Date End Date Flash Lovelace MD [address] [place] [address] PCP - General Family Medicine 09/04/18 System, Provider Not In Poly Area Supervisor 11/09/22 Director Report Relationship Specialty Start Date End Date Flash Lovelace MD [address] [place] [address] PCP - [employer] 08/28/17 Flash Lovelace MD [address] [place] [address] PCP - General Family Medicine 03/09/23 Director Report Relationship Specialty Start Date End Date Flash Lovelace MD [address] [place] [address] PCP - [employer] 08/28/17 Flash Lovelace MD [address] [place] [address] PCP - General Family Medicine 03/09/23 Director Report Relationship Specialty Start Date End Date Flash Lovelace MD [address] [place] [address] PCP - [employer] 08/28/17 Flash Lovelace MD [address] [place] [address] PCP - General Family Medicine 03/09/23Monday, Mary, BREAKFAST SERVER [address] [place] [address] Licensed Practical Nurse Family Medicine 06/21/24 Director Report Relationship Specialty Start Date End Date Flash Lovelace MD [address] [place] [address] PCP - General 08/15/13 Director Report Relationship Specialty Start Date End Date Flash Lovelace MD [address] [place] [address] PCP - General 08/15/13 Director Report Relationship Specialty Start Date End Date Flash Lovelace MD [address] [place] [address] PCP - [employer] 08/28/17 Flash Lovelace MD [address] [place] [address] PCP - General Family Medicine 03/09/23Monday, Mary, BREAKFAST SERVER [address] [place] [address] Licensed Practical Nurse Family Medicine 06/21/24 Director Report Relationship Specialty Start Date End Date Flash Lovelace MD [address] [place] [address] PCP - [employer] 08/28/17 Flash Lovelace MD [address] [place] [address] PCP - General Family Medicine 03/09/23 Director Report Relationship Specialty Start Date End Date Flash Lovelace MD [address] [place] [address] PCP - [employer] 08/28/17 Flash Lovelace MD [address] [place] [address] PCP - General Family Medicine 03/09/23 Director Report Relationship Specialty Start Date End Date Flash Lovelace MD [address] [place] [address] PCP - [employer] 08/28/17 Flash Lovelace MD [address] [place] [address] PCP - General Family Medicine 03/09/23 Director Report Relationship Specialty Start Date End Date Flash Lovelace MD [address] [place] [address] PCP - General Family Medicine 09/04/18 System, Provider Not In Poly Area Supervisor 11/09/22 Director Report Relationship Specialty Start Date End Date Flash Lovelace MD [address] [place] [address] PCP - [employer] 08/28/17 Flash Lovelace MD [address] [place] [address] PCP - General Family Medicine 03/09/23 Mary Rodriguez LPN [address] [place] [address] Licensed Practical Nurse Family Medicine 06/21/24 Director Report Relationship Specialty Start Date End Date Flash Loevlace MD [address] [place] [address] PCP - [employer] 08/28/17 Flash Lovelace MD [address] [place] [address] PCP - General Family Medicine 03/09/23 Lorraine Morgan, RN Licensed Practical Nurse Family Medicine 10/04/24 Director Report Relationship Specialty Start Date End Date Flash Lovelace MD [address] [place] [address] PCP - [employer] 08/28/17 Flash Lovelace MD [address] [place] [address] PCP - General Family Medicine 03/09/23 Elaine Saab LPN 11/15/24 Director Report Relationship Specialty Start Date End Date Flash Lovelace MD [address] [place] [address] PCP - [employer] 08/28/17 Flash Lovelace MD [address] [place] [address] PCP - General Family Medicine 03/09/23 Elaine Saab [facility] 11/15/24 Director Report Relationship Specialty Start Date End Date Flash Lovelace MD [address] [place] [address] PCP - [employer] 08/28/17 Flash Lovelace MD [address] [place] [address] PCP - General Family Medicine 03/09/23 Elaine Saab [facility] 11/15/24 Director Report Relationship Specialty Start Date End Date Flash Lovelace MD [address] [place] [address] PCP - [employer] 08/28/17 Flash Lovelace MD [address] [place] [address] PCP - General Family Medicine 03/09/23 Elaine Saab [facility] 11/15/24 Director Report Relationship Specialty Start Date End Date Flash Lovelace MD [address] [place] [address] PCP - [employer] 08/28/17 Flash Lovelace MD [address] [place] [address] PCP - General Family Medicine 03/09/23 Elaine Saab [facility] 11/15/24 Director Report Relationship Specialty Start Date End Date Flash Lovelace MD [address] [place] [address] PCP - [employer] 08/28/17 Flash Lovelace MD [address] [place] [address] PCP - General Family Medicine 03/09/23 Elaine Saab, BREAKFAST SERVER [address] [facility] [address] [place] [address] 11/15/24 Team Status: Inactive Member Role Status [...] March 12, 2025 End: March 12, 2025 Director Report Relationship Specialty Start Date End Date Flash Lovelace MD [address] [place] [address] PCP - General Family Medicine 09/04/18 System, Provider Not In Poly Area Supervisor 11/09/22 Director Report Relationship Specialty Start Date End Date Flash Lovelace MD [address] [place] [address] PCP - General Family Medicine 09/04/18 System, Provider Not In Poly Area Supervisor 11/09/22 Director Report Relationship Specialty Start Date End Date Flash Lovelace MD [address] [place] [address] PCP - General Family Medicine 09/04/18 System, Provider Not In Poly Area Supervisor 11/09/22 Director Report Relationship Specialty Start Date End Date Flash Lovelace MD [address] [place] [address] PCP - General Family Medicine 09/04/18 System, Provider Not In Poly Area Supervisor 11/09/22 Director Report Relationship Specialty Start Date End Date Flash Lovelace MD [address] [place] [address] PCP - [employer] 08/28/17 Flash Lovelace MD [address] [place] [address] PCP - General Family Medicine 03/09/23 Elaine Saab LPN [address] [place] [address] 11/15/24 Director Report Relationship Specialty Start Date End Date Flash Lovelace MD [address] [place] [address] PCP - General Family Medicine 09/04/18 System, Provider Not In Poly Area Supervisor 11/09/22 Director Report Relationship Specialty Start Date End Date Flash Lovelace MD [address] [place] [address] PCP - [employer] 08/28/17 Flash Lovelace MD [address] [place] [address] PCP - General Family Medicine 03/09/23 Elaine Saab LPN [address] [place] [address] 11/15/24 Director Report Relationship Specialty Start Date End Date Flash Lovelace MD [address] [place] [address] PCP - [employer] 08/28/17 Flash Lovelace MD [address] [place] [address] PCP - General Family Medicine 03/09/23 Elaine Saab LPN [address] [place] [address] 11/15/24 Director Report Relationship Specialty Start Date End Date Flash Lovelace MD [address] [place] [address] PCP - [employer] 08/28/17 Flash Lovelace MD [address] [place] [address] PCP - General Family Medicine 03/09/23 Elaine Saab LPN [address] [place] [address] 11/15/24 Director Report Relationship Specialty Start Date End Date Flash Lovelace MD [address] [place] [address] PCP - [employer] 08/28/17 Flash Lovelace MD [address] [place] [address] PCP - General Family Medicine 03/09/23 Elaine Saab LPN [address] [place] [address] 11/15/24 Director Report Relationship Specialty Start Date End Date Flash Lovelace MD [address] [place] [address] PCP - [employer] 08/28/17 Flash Lovelace MD [address] [place] [address] PCP - General Family Medicine 03/09/23 Elaine Saab LPN [address] [place] [address] 11/15/24 Director Report Relationship Specialty Start Date End Date Flash Lovelace MD [address] [place] [address] PCP - [employer] 08/28/17 Flash Lovelace MD [address] [place] [address] PCP - General Family Medicine 03/09/23 Elaine Saab LPN [address] [facility] [address] [place] [address] 11/15/24 Director Report Relationship Specialty Start Date End Date Flash Lovelace MD [address] [place] [address] PCP - General Family Medicine 09/04/18 System, Provider Not In Poly Area Supervisor 11/09/22 Director Report Relationship Specialty Start Date End Date Flash Lovelace MD [address] [facility] [address] [place] [address] PCP - [employer] 08/28/17 Flash Lovelace MD [address] [facility] [address] [place] [address] PCP - General Family Medicine 03/09/23 Elaine Saab LPN [address] [place] [address] 11/15/24 Scheduled Active and Recently Administ ered [...] Maude Vallejo RN)2020 (Given - Provider: Kiesha Mosuqera RN) 0932 (Given - Provider: Rafaela Negron [...] Stuart RN) 1218 (Given - Provider: Rafaela Negorn RN) 1235 (Given - Provider: Alma Delia [...] Kiesha Mosquera RN) 0615 (Given - Provider: Kiesha Mosquera RN)1400 (Not Given - Provider: Alma Delia Page RN - Reason: Contraindicated) tiotropium bromide (SPIRIVA RESPIMAT) 2.5 mcg/actuation inhaler 2 puff 2 puff, Inhalation, Daily (RT), First dose on Mon01/19/22 at 1900 2220 (Given - Provider: Kiesha Mosquera, KULDEEP) 0932 (Given - Provider: Rafaela Negron, KULDEEP) [...] For 3 doses, Anginal pain, may repeat [id number] x3, then notify physician. DO NOT CRUSH [...] KULDEEP) 0658 (Given - Provider: Kiesha Mosquera, RN)1218 (Given - Provider: Rafaela Negron RN)2111 (Given - Provider: Kiesha Mosquera, RN) oxymetazoline (AFRIN) 0.05 % nasal spray [...] mL, Intravenous, Once in imaging, contrast, Per risk management manager (Radiology) for line patency check prior to contrast administration, Starting on Mon01/19/22 at 0048, For 1 dose sodium chloride (PF) (NS) 0.9 % contrast line flush 80 mL(Linked Group 4) 80 mL, Intravenous, Once in imaging, contrast, Per risk management manager (Radiology), Starting on Mon01/19/22 at 0048, For [...] mL, Intravenous, Once in imaging, contrast, Per risk management manager (Radiology) for line patency check prior to contrast administration, Starting on Mon01/19/22 at 0048, For 1 dose And sodium chloride (PF) (NS) 0.9 % contrast line flush 80 mLJump to med 80 mL, Intravenous, Once in imaging, contrast, Per risk management manager (Radiology), Starting on 01/19/22 at 0048, For 1 dose
30 mL [...] Prerna 04/14/22 at 2120, For 1 dose 2120 (Given - Provider: Rose Bautista RN) gabapentin [...] lock 0200 (Canceled Entry - Provider: Mane Akins, RN)0600 (Canceled Entry - Provider: Mane Akins, KULDEEP)1014 (Given - Provider: Mirta Huerta, RN)1400 (Not Given - Provider: Mirta Huerta [...] Akins RN)1422 (See Alternative - Provider: Mirta Huerta RN)1910 (See Alternative - Provider: Lizz Damon, KULDEEP) ondansetron (ZOFRAN-ODT) disintegrating tablet 4 mg(Linked Group 3) 4 mg, Oral, Every 6 hours PRN, nausea, vomiting, Starting on Mon04/15/22 at 0101, Use oral route first, if tolerated. Formulation requires tablet remain in sealed package until immediately prior to dose being administered. 0614 (Given - Provid er: Mane Akins RN)142 (Given - Provider: Mirta Huerta RN)1910 (Given - Provider: Lizz Damon, KULDEEP) oxyCODONE-acetaminophen (PERCOCET) 5-325 mg per tablet 1 tablet 1 tablet, Oral, Every 6 hours PRN, moderate to severe pain, Starting on Mon04/15/22 at 0101 0126 (Given - Provid er: Mane Akins RN) sodium chloride (PF) (NS) 0.9 % contrast line flush 10 mL (COMPLETED) 10 mL, Intravenous, Once in imaging, contrast, Per risk management manager (Radiology) for line patency check prior to contrast administration, Starting on Mon04/14/22 at 211, For 1 dose 2131 (Given - Provider: Beena Yates, TECHNOLOGIST) sodium chloride (PF) (NS) 0.9 % contrast line flush 80 mL (COMPLETED) 80 mL, Intravenous, Once in imaging, contrast, Per risk management manager (Radiology), Starting on Mon04/14/22 at 2110, For [...] (CANCELED) KAJAL, Once, On Prerna 04/14/22 at 194, For 1 occurrence And sodium [...] Mackenzie RN) 0859 (Given - Provider: Cara Dorado, KULDEEP) 0928 (Given - Provider: Andree Agarwal, KULDEEP) atorvastatin (LIPITOR) tablet 40 mg 40 mg, Oral, Nightly, First dose on Mon11/04/22 at 2100 2019 (Given - Provider: Meir Nath, KULDEEP) 2022 (Given - Provider: Meir Nath, KULDEEP) benzonatate (TESSALON) capsule 100 mg 100 mg, Oral, 3 times daily, First dose (after last reorder) on Mon11/04/22 at 1045, DO NOT CRUSH OR CHEW. 0834 (Given - Provider: Terri Mackenzie RN)1659 (Given - Provider: Terri Mackenzie, KULDEEP)2019 (Given - Provider: Meir Nath, KULDEEP) 0859 (Given - Provider: Cara Dorado, KULDEEP)1556 (Given - Provider: Cara Dorado, KULDEEP)2022 (Given - Provider: Meir Nath, KULDEEP) 0928 (Given - Provider: Andree Agarwal, KULDEEP) budesonide-formoteroL (SYMBICORT) 160-4.5 mcg/actuation inhaler 2 puff(Linked Group 1) 2 puff, Inhalation, 2 times daily (RT), First dose on Prerna 11/03/22 at 2230 0836 (Given - Provider: Terri Mackenzie RN)2019 (Given - Provider: Meir Nath RN) 0904 (Given - Provider: Cara Dorado, KULDEEP)2023 (Given - Provider: Meir Nath, KULDEEP) 0929 (Given - Provider: Andree Agarwal, KULDEEP) cefePIMe-dextrose (MAXIPIME) 2 gram/50 mL IVPB 2,000 mg 2,000 mg, Intravenous, at 100 mL/hr, Every 12 hours, First dose on Mon11/04/22 at 1000, Indication: HAP/VAP 1138 (New Bag - Provider: Terri Mackenzie, KULDEEP)2247 (New Bag - Provider: Meir Nath, KULDEEP)2252 (Paused - Provider: Meir Nath, RN)2253 (Restarted - Provider: Meir Nath, RN)2319 (Stopped - Provider: Meir Nath, RN) 1139 (New Bag - Provider: Cara Dorado RN)2138 (New Bag - Provider: Meir Nath, KULDEEP) 1037 (New Bag - Provider: Andree Agarwal, KULDEEP) docusate sodium (COLACE) capsule 100 mg 100 mg, Oral, Daily, First dose on Mon11/07/22 at 1900, Hold for loose stools DO NOT CRUSH OR CHEW. 1835 (Given - Provider: Cara Dorado RN) 0928 (Given - Provider: Andree Agarwal RN) furosemide (LASIX) injection 20 mg (CANCELED) 20 mg, Intravenous, 2 times daily before meals, First dose on Mon11/04/22 at 0730 0833 (Given - Provider: Terri Mackenzie, KULDEEP)1659 (Given - Provider: Terri Mackenzie RN) 0900 (Given - Provider: Caar Dorado RN) furosemide (LASIX) tablet 20 mg 20 mg, Oral, Daily, First dose on Mon11/08/22 at 0900 0928 (Given - Provider: Andree Agarwal, KULDEEP) ipratropium-albuteroL (DUO-NEB) 0.5-2.5 mg/3 ml nebulizer solution 3 mL 3 mL, Inhalation, Every 6 hours scheduled (RT), First dose on Prerna 11/03/22 at 2230 0345 (Not Given - Provider: Gisella Pyle, SERVICES ADVISOR - Reason: Patient/family refused - Comment: Patient doesn't want his treatment throughout the night)0800 (Not Given - Provider: Sussy Rocha, SERVICES ADVISOR - Reason: Patient not available)1515 (Given - Provider: Andrew Milan, MAILROOM CLERK)2012 (Given - Provider: Claire Ireland, SERVICES ADVISOR) 0200 (Not Given - Provider: Claire Ireland, SERVICES ADVISOR - Reason: Patient/family refused)0828 (Given - Provider: Sussy Rocha, ARCHANA)1400 (Given - Provider: Sussy Rocha RRT)2024 (Given - Provider: Claire Ireland, SERVICES ADVISOR) 0200 (Not Given - Provider: Claire Ireland, SERVICES ADVISOR - Reason: Patient/family refused)0800 (Not Given - [...] RN) 0859 (Given - Provider: Cara Dorado RN)2022 (Given [...] CAD/PAD 0833 (Given - Provider: Terri Mackenzie RN)2019 [...] Saline lock 0527 (Given - Provider: Misty Ponce, KULDEEP)1659 (Given - Provider: Terri Mackenzie RN)2200 (Canceled Entry - Provider: Meir Nath RN) 0625 (Given - Provider: Meir Nath RN)1400 (Canceled Entry - Provider: Cara Dorado RN)2138 (Given - Provider: Meir Nath RN) 0615 (Given - Provider: Meir Nath RN)1400 [...] being administered. 0712 (Given - Provider: Meir Nath, KULDEEP) oxyCODONE-acetaminophen (PERCOCET) 5-325 mg per tablet 1 tablet 1 tablet, Oral, Every 4 hours PRN, moderate to severe pain, Starting on Mon11/04/22 at 1000 0525 (Given - Provider: Misty Ponce RN)1253 (Given - Provider: Terri Mackenzie, KULDEEP)2242 (Given [...] Oral, NOW, 1 dose, On Mon10/30/22 at 2145 2143 (Given - Provid er: Jose Panchal RN) ipratropium-albuterol (DUONEB) nebulizer solution 1 ampule 1 ampule, Inhalation, EVERY 4 HOURS WHILE AWAKE, First dose on Mon10/30/22 at 2000, Until Discontinued, Initiate RT Bronchodilator Protocol: No 1947 (Given - Provid er: Norma Fitzgerald RCP) methylPREDNISolone sodium (SOLU-MEDROL) injection 125 mg 125 mg, IntraVENous, DAILY, First dose on 10/30/22 at 194 1940 (Given - Provid er: Jose Panchal RN) Scheduled Medication Order 10/28/2022 10/29/2022 10/30/2022 ipratropium-albuterol (DUONEB) nebulizer solution 1 ampule 1 ampule, Inhalation, EVERY 4 HOURS WHILE AWAKE, First dose on Mon10/30/22 at 2000, Until Discontinued, Initiate RT Bronchodilator Protocol: No 7 (Given - Provid er: Norma Fitzgerald RCP) methylPREDNISolone sodium (SOLU-MEDROL) injection 125 mg 125 mg, IntraVENous, DAILY, First dose on Mon10/30/22 at 1940 (Given - Provid er: Jose [...] KULDEEP) 0831 (Given - Provider: Katie Pino, RN) atorvastatin (LIPITOR) tablet 80 mg 80 mg, Oral, Nightly, First dose (after last modification) on Mon03/14/25 at 2130 2117 (Given - Provider: Zenobia Clay, RN) 2157 (Given - Provider: China Negro RN) azelastine (ASTELIN) 137 mcg (0.1 %) nasal spray 1 spray 1 spray, Each Nare, Daily, First dose on 03/15/25 at 0900 0839 (Given - Provider: Dashawn Cano RN) 0813 (Given - Provider: Kaylie Denny, KULDEEP) 0832 (Given - Provider: Katie Pino, KULDEEP) cyclobenzaprine (FLEXERIL) tablet 10 mg (CANCELED) 10 mg, Oral, Every 8 hours scheduled, First dose on Mon03/17/25 at 2200 0614 (Given - Provider: Jeremy Merchant RN)1431 (Given - Provider: Dashawn Cano RN)2117 (Given - Provider: Zenobia Clay, KULDEEP) 0536 (Given - Provider: Zenobia Clay, RN)1400 (Hold - Provider: Kaylie Denny RN [...] 60 0837 (Given - Provider: Dashawn Cano RN)211 (Given - Provider: Zenobia Clay RN - Comment: BP 134/44, MAP 67, HR 88) 0812 (Given - Provider: Kaylie Denny, KULDEEP)2156 (Given - Provider: China Negro, KULDEEP) 0831 [...] RN) 0812 (Given - Provider: Kaylie Denny, KULDEEP)193 (Given - Provider: China Negro RN) 0831 (Given - Provider: Katie Pino, KULDEEP) tamsulosin (FLOMAX) 24 hr capsule 0.4 mg 0.4 mg, Oral, After evening meal, First dose on Mon03/15/25 at 1800, DO NOT CRUSH OR CHEW. Give 30 minutes after the same meal daily. Monitor for orthostasis due to potential risk of syncope. 181 (Given - Provider: Dashawn Cano RN) 175 (Given - Provider: Kayliepatrick Denny RN) 1800 (Due) zolpidem (AMBIEN) tablet 10 mg 10 mg, Oral, Nightly, First dose on Mon03/14/25 at 2200 2117 (Given - Provider: Zenobia Clay RN) 2156 [...] needed, dry eyes, Starting on Mon03/14/25 at 2026 prochlorperazine (COMPAZINE) injection 2.5 mg 2.5 mg, [...] Daily PRN, constipation, Starting on Mon03/14/25 at 202, Use as first line agent for constipation. [...] BE BASED ON THE PRIMARY CLINICAL RECORDS. [employer] [facility]. provides no warranty or guarantee of the accuracy or completeness of information in this document.
== END 2025-04-30 13:20 | disposition home or self-care (01) ==
PROVIDERS: Emergency Provider Student in an Organized Health Care Education/Training Program; PCP Family Medicine
DX: J40 Bronchitis, not specified as acute or chronic (principal); M86.171 Other acute osteomyelitis, right ankle and foot; R05.8 Other specified cough; R06.02 Shortness of breath; I70.261 Atherosclerosis of native arteries of extremities with gangrene, right leg; L97.516 Non-pressure chronic ulcer of other part of right foot with bone involvement without evidence of necrosis
CPT/HCPCS: 36415; 71046; 80048; 83880; 84484; 85007; 85027; 85652; 86140; 94640; 99284; J7512

== ENCOUNTER 2025-05-14 10:10 | Outpatient (OUT) | payer MEDICARE, SELFPAY ==
--- OUTSIDE RECORDS SUMMARY | 2025-05-14 10:23 | XMS_ITS | CCD ---
Author Organization [facility] CliniSymn Care Team Providers Care Button And Buckle Maker Name Role Phone ELTAHAWY, EHAB A Unavailable Unavailable ELTAHAWY, EHAB A Unavailable Unavailable DAVON LOVELACEEN Unavailable Unavailable YANIRA CEE AM Unavailable Unavailable RIEGO, FILMORE ANeftali Unavailable Unavailable ZACKERY, FILMORE A. Unavailable Unavailable Flash Lovelace Primary Care Provider [phone] FLYNN MANN Attending Unavailabl e FLYNN MANN Referring Unavailabl e FLASH LOVELACE Primary Care Unavailable FLYNN MANN Admitting Unavailabl e [facility] Consulting Monisha MURO, SANTOSH YOUSIF Consulting Unavailable ISAIAS VOGT Attending Unavailable ISAIAS VOGT Referring Unavailable ISAIAS VOGT Attending Unavailable ISAIAS VOGT Referring Unavailable SHAYY WAY Attending Unavailable DUKE SANTOS Attending Unavailable DUKE SANTOS Referring Unavailable ANALIA FOX Attending Unavailable Flash Lovelace Primary Care Provider Flash Lovelace MD Primary Care Provider [phone] Flash Lovelace MD Primary Care Provider ILEANA KANG Attending Unavailable FLASH LOVELACE Primary Care Unavailable Flash Lovelace MD Primary Care Provider [phone] Cristian Beaver Unavailable MD Flash Lovelace Primary Care Provider [phone] MD Cristian Beaver Attending Provider [phone] WAGNER MOON Referring Unavaila WAGNER Vogt Attending Unavaila FLASH Newton Primary Care Unavailable Flash Lovelace MD Primary Care Provider Flash Lovelace MD Primary Care Provider FLASH LOVELACE Primary Care Unavailable Dalila Arreguin Attending Unavailable FLSAH LOVELACE Primary Care Physician Haven Malcolm Unavailable DR FLASH LOVELACE Primary Care Unavailable ARISTEORUSSEL QUEVEDO Admitting Unavailable RUSSEL VALLEJO Consulting Unavailable RUSSEL VALLEJO Attending Unavailable ALBAN[place], DR VIDALES Primary Care Unavailable BHASKAR WILSON Admitting Unavailable WILSON, BHASKAR Consulting Unavailable BHASKAR WILSON Attending Unavailable ELIZABETH LAI Attending Unavailable [place]ANIA, DR VIDALES Primary Care Unavailable ZIEBER, DR MIKEY Kwon Consulting Unavailable ALGHOTHANI, MOHAMAD Admitting Unavailable ALGHOTHANI, MOHAMAD Consulting Unavailable [place], DR VIDALES Primary Care Unavailable BRENNA MOSQUERA Admitting Unavailable BRENNA MOSQUERA Consulting Unavailable BRENNA MOSQUERA Attending Unavailable System, Provider Not In Unavailable UnavailMD Flash Gutiérrez Primary Care Provider [phone] BERTA Malcolm Attending Provider MD Cristian Beaver Attending Provider Flash Lovelace MD Primary Care Provider [phone] SCAR ORTEGA Referring Unavailable FLASH LOVELACE [facility] Unavailable SCAR ORTEGA Attending Unavailable FLASH LOVELACE [facility] Care Unavailable SELF, SELF Referring Unavailable SCAR ORTEGA Attending Unavailable MD Flash Lovelace Primary Care Provider [phone] MD Cristian Beaver Attending Provider [phone] MD Eliezer Juarez V Attending Provider MD Duke Dunbar Referring Provider BRENNA MOSQUERA Attending Unavailable FLASH LOVELACE Primary Care Unavailable GISEL MANN Admitting Unavailable ARTURO HARPER Consulting Unavailable JUAN EARL Attending Unavailable Flash Lovelace MD Unavailable Flash Lovelace MD Primary Care Provider [phone] Monday CHUTE PULLER, Mary Unavailable Flash Lovelace MD Primary Care Provider Cathy LIGHT, Lorraine Unavailable Saab CHUTE PULLER, Elaine Unavailable Unavailable MOUKARBEL, ELIEZER Admitting Unavailable MOUKARBEL, ELIEZER Attending Unavailable RUSSEL VALLEJO Attending Unavailable MODAJA, ELIEZER Attending Unavailable MOUKARBEL, ELIEZER Attending Unavailable ARISTEO, RUSSEL Attending Unavailable Saab CHUTE PULLER, Elaine Unavailable Flash Lovelace MD Primary Care Provider [phone] Cristian Beaver MD Attending Provider MOHSEN SARABIA Referring Unavailable MOHSEN SARABIA Admitting Unavailable [place], RUGEN M Primary Care Unavailable KEN JOHNSON Attending Unavailable MOHSEN SARABIA Attending Unavailable [place], RUGEN M Primary Care Unavailable MOHSEN SARABIA Attending Unavailable [place], RUGEN M Primary Care Unavailable MOHSEN SARABIA Attending Unavailable [place], RUGEN M Primary Care Unavailable Cristian Beaver MD Other Provider Beena Negron MD Attending Provider Muna Greene DO Emergency Provider [phone] Adiel Mccollum MD Admit Provider Adiel Mccollum MD Attending Provider [phone] FLASH LOVELACE Attending Unavailable BHASKAR WILSON Attending Unavailable ALBANIAFLASH Attending Unavailable HEMZOË BERNARD Attending Unavailable ALBANIAFLASH Attending Unavailable ALBANIAFLASH M Referring Unavailable HEMZOË BERNARD Attending Unavailable ALBANIAFLASH Attending Unavailable HEMZOË BERNARD Attending Unavailable Muna Greene DO Emergency Provider Adiel Mccollum MD Admit Provider Milvia Vang APRN Other Provider Richie Woodward MD Other Provider Jhonny DIAZ, Jesse Morris Other Provider [phone] José Miguel DIAZ, Randall Denise Other Provider Ramana Gonzalez DO Other Provider Sharad DIAZ, Joyce Other Provider Cheyenne DIAZ, Misael Other Provider Conrad DIAZ, Yudelka Ontiveros Attending Provider Conrad DIAZ, Yudelka Ontiveros Other Provider [phone] Ben Reddy DO Other Provider [place], RUGEN M Primary Care Unavailable WALKERMOHSEN Attending Unavailable WALKERMOHSEN Referring Unavailable WALKERMOHSEN Attending Unavailable [place], RUGEN M Primary Care Unavailable WALKER, MOHSEN DE OLIVEIRA Referring Unavailable [place], RUGEN M Primary Care Unavailable WALKER, MOHSEN DE OLIVEIRA Attending Unavailable WALKERMOHSEN Referring Unavailable [place], RUGEN M Primary Care Unavailable WALKER, MOHSEN DE OLIVEIRA Attending Unavailable WALKERMOHSEN Referring Unavailable DOMUNA RODRIGUEZY Admitting Unavail able [place], RUGEN M Primary Care Unavailable URI VOSS Attending Unavailable MOHSEN SARABIA Consulting Unavailable Cristian Beaver Admitting Unavailable Cristian Beaver Attending Unavailable [place], Rugen M Primary Care Unavailable Ben Reddy Attending Unavailable DaromarRogedah M Admitting Unavailable Milvia Vang Consulting Unavailable [place], Rugen M Primary Care Unavailable Richie Woodward Consulting Unavaila Jesse Juan Consulting Unavailable Randall Valdez Consulting Unavailable Ramana Gonzalez M Consulting Unavailable Sharad, Joyce Consulting Unavailable [place], Misael Consulting Unavailable Yudelka Martines Consulting Unavaila Cristian Khanna Admitting Unavailable Cristian Beaver Attending Unavailable [place], Rugen M Primary Care Unavailable Cristian Beaver Admitting Unavailable Cristian Beaver Attending Unavailable [place], Rugen M Primary Care Unavailable [place], RUGEN Primary Care Unavailable CONSULT, PULMONOLOGY Consulting Unavailable RAFAELA GARCIA Attending Unavailable VIVIENNE HUIZAR Admitting Unavailable SYSTEM, PROVIDER NOT IN Referring Unavaila Flash Newton MD Primary Care Provider Allergies Allergy Classification Reported Allergen(s) Allergy Type Date of Onset Reaction(s) Facility Doxycycline (2 sources) Doxycycline Drug Allergy 9 [facility] (1 source) 38515,00; Translations: [10930,00] Propensity to adverse reactions (disorder) 9 [facility] (11 sources) oxyCODONE; Translations: [oxycodone] Drug Allergy 7 Anaphylaxis, Anaphylaxis (disorder) [facility] (20 sources) Doxycycline; Translations: [DOXYCYCLINE] Drug Allergy 9 Unknown [facility] (20 sources) gabapentin; Translations: [GABAPENTIN] Drug Allergy 5 GI Intolerance [facility] (3 sources) tiZANidine; Translations: [tizanidine] Drug Allergy 5 [facility] (1 source) gabapentin Drug Allergy [address] [place] [address] Repository Medications Current Medications Medication Drug Class(es) Dates Sig (Normalized) Sig (Original) albuterol 0.83 mg/ml inhalation solution (20 sources) beta2-Adrenergic Agonist Start: 05-08-2025 take 2.5 mg by inhalation four times daily Start: 03-14-2025 End: 03-21-2025 Start: 03-11-2025 take 1 puff(s) by in halation every four to six hours as needed for wheezing Start: 01-30-2024 End: 12-26-2024 take 1 puff(s) [...] mL 2 01/21/2022 03/14/2025 Discontinued (Therapy completed) take 1 puff(s) by in halation every four hours as needed Albuterol 108 (90 Base) MCG/ACT Aero Soln inhaler Inhale 1 puff every 4 hours as needed for Shortness of Breath. Active Albuterol Sulfat e HFA 108 (90 Base) MCG/ACT Inhalation for 50 Days Active Albuterol Sulfat e HFA 108 (90 Base) MCG/ACT Inhalation for 50 Days Active albuterol (PROVE NTIL) (2.5 MG/3ML) 0.083% nebulizer solution Take 2.5 mg by nebulization every 6 hours as needed for Wheezing 0 Active amLODIPine 5 mg oral tablet (14 sources) Dihydropyridine Calcium Channel María Start: 04-24-2024 End: 04-24-2025 take 1 tablet by mouth in the morning amLODIPine (Norvasc) 5 MG tablet Take 5 mg by mouth in the morning. 04/24/2024 05/21/2024 Discontinued (Other) Start: 10-12-2023 End: 05-02-2025 take 1 tablet by mouth once daily Amlodipine 10 mg tablet Discontinued 10 MG PO Daily October 12, 2023 1:00am May 02, 2025 4:14pm End: 08-09-2023 amLODIPine (NORVASC) 5 MG ta blet amoxicillin 500 mg / clavulanate 125 mg oral tablet (18 sources) Penicillin-class Antibacterial Start: 04-16-2025 take 1 tablet by mouth in the morning amoxicillin-clavulanate (Augmentin) 500-125 MG tablet Take 500 mg by mouth in the morning and 500 mg before bedtime. 04/16/2025 Active Start: 04-16-2025 amoxicillin-cl avulanate (AUGMENTIN) 500-125 mg per tablet 04/16/2025 Active [...] . 0 10/22/2018 03/13/2019 Discontinued (Therapy completed) End: 05-13-2025 take 1 tablet by mouth every twelve hours Amoxicillin-clavulanate 500-125 MG table t Take 1 tablet by mouth every 12 hours. 05/13/2025 Discontinued (Stop Taking at Discharge) azelastine hydrochloride 0.137 mg/actuat metered dose nasal spray (20 sources) Histamine-1 Receptor Antagonist Start: 05-13-2025 take 1 spray(s) nasal route once daily as needed azelastine 0.1 % Solution nasal spray 1 spray by Nasal route daily as needed. Use in each nostril as directed 05/13/2025 Active Start: 03-15-2025 End: 03-21-2025 1 spray, Each Nare, Daily, F irst dose on 03/15/25 at 0900 Start: 03-11-2025 take 1 spray(s) nasa l route twice daily as needed Start: 11-04-2024 take 1 spray(s) nasa l [...] for 14 days. 30 mL 08/12/2024 Active End: 05-13-2025 take 1 spray(s) nasal route twice daily azelastine 0.1 % Solution nasal spray 1 spray by Nasal route 2 times daily. Use in each nostril as directed 05/13/2025 Discontinued azithromycin 250 mg oral tablet (7 sources) Macrolide Antimicrobial Start: 04-29-2025 End: 05-04-2025 [...] 5 days 6 tablet 06/17/2024 06/22/2024 Active benzonatate 100 mg oral capsule (14 sources) Non-narcotic Antitussive Start: 05-08-2025 take 2 capsules by mouth three times daily Start: 10-30-2022 End: 10-30-2022 benzonatate (TESSALON) capsu le 100 mg Start: 10-30-2022 End: 11-08-2022 benzonatate (TESSALON) capsu le 100 mg End: 03-13-2019 take 1 capsule by mouth three times daily as needed for cough benzonatate (TESSALON) 100 MG capsule Take 100 mg by mouth 3 (three) times a day as needed for cough . 0 03/13/2019 Discontinued (Therapy completed) ciprofloxacin 500 mg oral tablet (2 sources) Quinolone Antimicrobial Start: 01-09-2025 End: 01-14-2025 take 0.5 tablet by mouth in the morning ciprofloxacin (Cipro) 500 MG tablet Indications: Dysuria Take 0.5 tablets (250 mg) by mouth in the morning and 0.5 tablets (250 mg) before bedtime. Do all this for 5 days. 5 tablet 01/09/2025 01/14/2025 Active doxycycline hyclate 100 mg oral tablet (14 sources) Tetracycline-class Drug Start: 05-08-2025 take 1 tablet by mouth twice daily Start: 01-17-2022 End: 01-19-2022 take 1 capsule [...] . 28 tablet 0 09/20/2018 09/30/2018 Active ergocalciferol 1.25 mg oral capsule (13 sources) Provitamin D2 Compound End: 05-21-2024 ergocalciferol (Vitamin D-2) 1.25 MG (00885 UT) capsule Take 50,000 Units by mouth every 7 (seven) days. 05/21/2024 Discontinued (Other) End: 08-09-2023 take 1 capsule by mouth every week ergocalciferol (ERGOCALCIFEROL) 1,250 mcg (50,000 unit) capsule Take 1 (one) capsule (50,000 Units total) by mouth once a week . 0 08/09/2023 Discontinued (Discontinued by another clinician) furosemide 20 mg oral tablet (20 sources) Loop Diuretic Start: 05-13-2025 take 1 tablet by mouth once daily as needed furOSEmide 20 MG tablet Take 1 tablet by mouth daily as needed. 05/13/2025 Active Start: 03-15-2025 End: 03-21-2025 take 20 mg by mouth every other day 20 mg, Oral, Every other day, First dose on 03/15/25 at 0900 Start: 03-11-2025 take 1 tablet by lucy twice daily Start: 10-14-2024 furosemide (La six) 20 MG tablet Indications: Benign essential hypertension TAKE 1 TABLET EVERY MORNING 90 tablet 3 10/14/2024 Active Start: 11-03-2022 End: 11-07-2022 furosemide (LASIX) injection 20 mg Start: 05-10-2017 End: 05-13-2025 furosemide (Lasix) 20 MG tab let Indications: Benign essential hypertension (CMS/HCC) TAKE 1 TABLET EVERY MORNING 100 tablet 3 10/12/2023 Active 12 hr guaiFENesin 600 mg extended release oral tablet (1 source) Start: 05-08-2025 take 1 tablet by mouth twice daily 24 hr isosorbide mononitrate 30 mg extended [...] 08-09-2023 levoFLOXacin (LEVAQUIN) 500 MG tablet Lisinopril (19 sources) Angiotensin Converting Enzyme Inhibitor Start: 07-03-2019 [...] daily . 0 10/09/2019 Discontinued (Therapy completed) menthol 0.0044 mg/mg / zinc oxide 0.206 mg/mg topical ointment (14 sources) Start: 06-27-2023 Calmoseptine 0 .44-20.6 % Oint Apply 1 Application topically daily as needed . 06/27/2023 Active Start: 06-27-2023 Calmoseptine 0 .44-20.6 % Oint 06/27/2023 Active methylPREDNISolone 125 mg injection (12 sources) Corticosteroid Start: 10-30-2022 methylPREDNISo lone sodium (SOLU-MEDROL) injection 125 mg Start: 11-24-2021 End: 05-09-2025 methylPREDNIsolone 4 MG Tab Therapy Pack tablet Take 1 tablet by mouth As directed. follow package directions 21 tablet 11/24/2021 05/09/2025 Discontinued montelukast 10 mg oral tablet (20 sources) Leukotriene Receptor Antagonist Start: 03-21-2024 End: 03-31-2025 take 1 tablet by mouth at bedtime montelukast (Singulair) 10 MG tablet Indications: Seasonal allergic rhinitis due to pollen Take 1 tablet (10 mg) by mouth at bedtime 30 tablet 11 03/21/2024 03/31/2025 Discontinued (Other) naloxone (NARCAN) 4 mg/actuation Presho (4 sources) Start: 03-21-2025 naloxone (NARC AN) 4 mg/actuation Presho Administer 1 spray into one nostril for known or suspected opioid overdose. If patient worsens or does not respond, may repeat in 2-3 minutes. . 2 each 03/21/2025 Active Start: 03-21-2025 naloxone (NARC AN) 4 mg/actuation Presho Administer 1 spray into one nostril for known or suspected opioid overdose. If patient worsens or does not respond, may repeat in 2-3 minutes. . 2 each 03/21/2025 nitroglycerin 0.4 mg subling ual tablet (20 sources) Nitrate Vasodilator Start: 05-02-2025 Start: 12-07-2022 End: 03-31-2025 nitroglycerin (Nitrostat) 0. 4 MG SL tablet Indications: PVD (peripheral vascular [...] For 3 doses Anginal pain, may repeat [id number] x3, then notify physician. DO NOT CRUSH OR CHEW. Start: 09-05-2018 End: 09-13-2018 nitroGLYCERIN (NITROSTAT) SL tablet 0.4 mg End: 01-21-2022 nitroGLYCERIN (NITROSTAT) 0. [address] under the tongue every 4 to 6 hours as needed . 0 01/21/2022 Discontinued (Stop Taking at Discharge) ondansetron 4 mg oral tablet (20 sources) [...] . 480 mL 0 09/13/2018 09/20/2018 Active predniSONE (20 sources) Start: 05-14-2025 End: 05-13-2025 predniSONE (DELTASONE) tablet 30 mg Start: 05-13-2025 End: 05-25-2025 take 3 tablets by mouth once daily, then take 2 tablets by mouth once daily, then take 1 tablet by mouth once daily predniSONE 10 MG tablet Take 3 tablets by mouth daily for 4 days, THEN 2 tablets daily for 4 days, THEN 1 tablet daily for 4 days. 24 tablet 05/13/2025 05/25/2025 Active Start: 05-08-2025 take 3 tablets by mo uth once daily Start: 05-02-2025 End: 05-08-2025 take 2 tablets by mouth once daily Prednisone 20 mg tablet Discontinued 40 MG PO Daily May 02, 2025 12:00am May 08, 2025 7:16pm Start: 04-30-2025 predniSONE (De ltasone) 20 MG tablet 04/30/2025 Active Start: 05-10-2017 End: 04-25-2022 take 2 mg by mouth once daily Prednisone 10 mg Tablet Discontinued 2 MG PO Daily May 10, 2017 12:00am April 25, 2022 11:27am Start: 05-10-2017 End: 04-25-2022 take 2 mg by mouth once daily Prednisone Discontinued 2 MG PO Daily May 09, 2017 11:00pm April 25, 2022 10:27am End: 08-09-2023 predniSONE (DELTASONE) 10 MG tablet sulfamethoxazole 400 mg / trimethoprim 80 mg oral tablet (20 sources) Dihydrofolate Reductase Inhibitor Antibacterial, Sulfonamide Antimicrobial Start: 04-16-2025 take 1 tablet by mouth every twelve hours sulfamethoxazole-trimethoprim (Bactrim) 400-80 MG tablet Take 1 tablet by mouth every 12 (twelve) hours 04/16/2025 Active Start: 04-08-2025 End: 04-15-2025 take [...] a day . 0 01/18/2022 04/15/2022 Discontinued take 1 tablet by [facility] twice daily Sulfamethoxazole-trimethoprim 400-80 MG per tablet Take 1 tablet by mouth 2 times daily. Active tamsulosin hydrochloride 0.4 mg oral capsule (20 sources) alpha-Adrenergic María Start: 05-14-2025 take 1 capsule by mouth once daily Tamsulosin HCl 0.4 MG capsule Take 1 capsule by mouth daily. 05/14/2025 Active Start: 05-14-2025 take [address] [facility] once daily Tamsulosin HCl 0.4 MG capsule Take 1 capsule by mouth daily. 05/14/2025 Active Start: 05-14-2025 take [address] [facility] once daily Tamsulosin HCl 0.4 MG capsule Take 1 capsule by mouth daily. 05/14/2025 Start: 03-31-2025 End: 07-09-2025 take 1 capsule by mouth every twenty-four hours in the morning tamsulosin (Flomax) 0.4 MG 24 hr capsule Indications: History of prostate cancer , Urinary hesitancy Take 1 capsule (0.4 mg) by mouth in the morning and 1 capsule (0.4 mg) before bedtime. 200 capsule 03/31/2025 07/09/2025 Active Start: 01-09-2025 End: 05-13-2025 take 1 capsule by mouth once daily 0.4 mg, Oral, DAILY, First dose on Mon05/09/25 at 0900, Until Discontinued, If giving via enteral tube: May add capsule contents to apple juice or applesauce. Do not crush or chew the pellets and coating. take 1 capsule by mo uth twice daily Tamsulosin HCl 0.4 MG capsule Take 1 capsule by mouth 2 times daily. Active zolpidem tartrate 10 mg oral tablet (20 sources) gamma-Aminobutyric Acid-ergic Agonist Start: 05-02-2025 take 1 tablet by mouth at bedtime as needed for sleep Start: 03-14-2025 End: 03-21-2025 take 10 mg by mouth once daily 10 mg, Oral, Nightly, F irst dose on Mon03/14/25 at 2200 Start: 09-30-2019 [...] 2023 8:54am take 2 tablets by mo ut at bedtime as needed for sleep zolpidem 5 MG tablet Take 2 tablets by mouth At bedtime as needed for Sleep. 0 Active Completed/Discontinued Medications Medication Drug Class(es) Dates Sig (Normalized) Sig (Original) acetaminophen 325 mg oral tablet (19 sources) Start: 05-09-2025 End: 05-13-2025 take 1 tablet by mouth every six hours as needed 650 mg, Oral, EVERY 6 HOURS NEEDED, Starting on Mon05/09/25 at 0221, Until Mon05/13/25 at 1552, Mild Pain, Oral temp > 100.4 F, Headaches, Alternate with ibuprofen if ordered, Maximum dose of acetaminophen is 4000 mg from all sources in 24 hours or 2000 mg from all sources in patients with cirrhosis in 24 hours. Start: 03-14-2025 End: 03-21-2025 take 650 mg [...] tabl et 975 mg Start: 07-15-2021 End: 05-09-2025 take 2 tablets by mouth every four hours as needed acetaminophen 325 MG tablet Take 2 tablets by mouth every 4 hours as needed for Mild Pain. 50 tablet 1 07/15/2021 05/09/2025 Discontinued (Medication Reconciliation (suppress cancel msg)) Start: 10-09-2018 End: 10-12-2018 take 1 tablet by mouth every six hours as needed acetaminophen (TYLENOL) tablet 650 mg Start: 09-05-2018 End: 09-13-2018 take 1 tablet by mouth every four hours as needed 650 mg, Oral, Every 4 hours PRN, mild pain, fever 100.4 F or greater, headaches, Starting Mon09/05/18 at 1603 acetaminophen 325 mg / oxyCODONE hydrochloride 5 mg oral tablet (20 sources) Opioid Agonist Start: 05-09-2025 End: 05-13-2025 take 1 tablet by mouth every eight hours as needed 1 tablet, Oral, EVERY 8 HOURS NEEDED, Starting on Mon05/09/25 at 0434, Until Mon05/13/25 at 1552, Severe Pain, Maximum dose of acetaminophen is 4000 mg from all sources in 24 hours. Start: 04-03-2025 End: 05-03-2025 take 1 tablet by mouth every six hours for pain oxyCODONE-acetaminophen (Percocet) [...] 5-325 mg per tablet 1 tablet Start: 10-05-2021 take 1 tablet by lucy [...] oral route first, if tolerated. Start: 05-12-2017 End: 04-02-2025 take 1 tablet by mouth every six hours as needed for pain Start: 05-12-2017 take 1 tablet by lucy [...] solution (20 sources) Anticholinergic, beta2-Adrenergic Agonist Start: 05-09-2025 End: 05-13-2025 3 mL, Nebulization, EVERY 6 HOURS, First dose on Mon05/09/25 at 0800, Until Discontinued Start: 02-03-2023 ipratropium-al buterol (Duo-Neb) 0.5-2.5 mg/3 mL nebulizer solution Take 3 mL by nebulization in the morning and 3 mL in the evening and 3 mL before bedtime. 02/03/2023 Active Start: 11-03-2022 End: 11-08-2022 take 3 mL by inhalation every six hours 3 mL, Inhalation, Every 6 hours scheduled (RT), First dose on Mon11/03/22 at 2230 Start: 11-03-2022 End: 11-08-2022 take 3 mL by inhalation every four hours as needed 3 mL, Inhalation, Every 4 hours PRN (RT), shortness of breath, Starting on Mon11/03/22 at 2228 Start: 11-03-2022 End: 03-14-2025 ipratropium-albuteroL (DUO-N EB) 0.5-2.5 mg/3 ml nebulizer Take 3 mL by nebulization 3 (three) times a day . 11/03/2022 03/14/2025 Discontinued (Therapy completed) Start: 10-30-2022 ipratropium-al buterol (DUONEB) nebulizer solution 1 ampule alprostadil 0.5 mg urethral suppository (1 source) Prostaglandin Analog, Prostaglandin E1 Agonist End: 08-09-2023 alprostadiL ([place]) 500 mcg pellet aluminum hydroxide 40 mg/ml [...] mL suspension 30 mL aspirin 81 mg chewable tablet (20 sources) Platelet Aggregation Inhibitor, Nonsteroidal Anti-inflammatory Drug Start: 05-09-2025 End: 05-13-2025 take 81 mg by mouth once daily 81 mg, Oral, DAILY, First dose on Mon05/09/25 at 0900, Until Discontinued Start: 11-04-2022 End: 11-08-2022 take 81 mg [...] tablet 81 m g Start: 05-10-2017 End: 03-21-2025 take 1 tablet by mouth once daily Baby Aspirin Act tatum atorvastatin 40 mg oral tablet (20 sources) HMG-CoA Reductase Inhibitor Start: 05-09-2025 End: 05-13-2025 take 80 mg by mouth once daily 80 mg, Oral, DAILY, First dose on Mon05/09/25 at 0900, Until Discontinued Start: 05-02-2025 take 1 tablet by lucy once daily Start: 03-14-2025 End: 03-21-2025 take 80 mg [...] dose on Mon09/05/18 at 2100 Start: 05-10-2017 End: 05-02-2025 take 2 tablets by mouth once daily Atorvastatin 20 mg Tablet Discontinued 40 MG PO Daily May 10, 2017 12:00am May 02, 2025 4:12pm Start: 05-10-2017 take 40 mg by mouth once daily Atorvastatin Active 40 MG PO Daily May 09, 2017 11:00pm Start: 05-10-2017 take 20 mg by mouth once daily Atorvastatin Active 20 MG PO Daily May 10, 2017 12:00am End: 05-09-2025 take 1 tablet by mouth twice daily, then take 0.5 tablet by mouth twice daily atorvastatin 40 MG Tab tablet Take 1 tablet by mouth 2 times daily. Takes 1/2 tab bid 05/09/2025 Discontinued End: 03-21-2025 atorvastatin (LIPITOR) 80 MG tablet Take 0.5 (one-half) tablet (40 mg total) by mouth 2 (two) times a day 1/2 tab . 03/21/2025 Discontinued (Stop Taking at Discharge) atorvastatin (LI PITOR) 40 MG tablet Take 0.5 (one-half) tablet (20 mg total) by mouth 2 (two) times a day 1/2 tab . Active 1 ml atropine sulfate 1 mg/ml injection [...] physician before administering Atropine, if condition allows. bisacodyl 10 mg rectal suppository (13 sources) Stimulant Laxative Start: 10-11-2018 End: 10-12-2018 bisacodyl (DULCOLAX) suppository 10 mg Start: 09-04-2018 End: 09-13-2018 take 5 mg by mouth once daily as needed for constipation 5 mg, Oral, Daily PRN, constipation, Starting Tu09/04/18 at 2247 DO NOT CRUSH OR CHEW. [...] on Mon03/14/25 at 2025, Give with Food calcium chloride 0.001 meq/ml [...] 300 MG capsule cefepime 2000 mg injection (4 sources) Cephalosporin Antibacterial Start: 05-09-2025 End: 05-12-2025 take 2 g intravenously every eight hours 2 g, Intravenous, Administer over 4 Hours, EVERY 8 HOURS NON-STANDARD, First dose on Mon05/09/25 at 0600, Until Discontinued, Infuse STAT doses over 30 minutes. Infuse other doses over 4 hours., On hold since Mon05/12/2025 at 0808 until manually unheld Start: 05-08-2025 take 2 g intravenous ly every eight hours Start: 11-04-2022 End: 11-08-2022 take 2000 mg intravenously every twelve hours cefePIMe-dextrose (MAXIPIME) 2 gram/50 mL IVPB 2,000 mg cefTRIAXone 2000 mg injection (2 sources) Cephalosporin Antibacterial Start: 11-03-2022 End: 11-03-2022 cefTRIAXone (ROCEPHIN) IVPB 2 g (premix) Start: 01-18-2022 End: 01-18-2022 cefTRIAXone (ROCEPHIN) IVPB 2 g (premix) celecoxib 200 mg oral capsule (11 sources) Nonsteroidal Anti-inflammatory Drug Start: 11-24-2021 End: 05-09-2025 take 1 capsule by mouth twice daily celecoxib 200 MG capsule Take 1 capsule by mouth 2 times daily. 60 capsule 11/24/2021 05/09/2025 Discontinued cephalexin 500 mg oral capsule (6 sources) [...] 10, 2017 12:00am May 12, 2017 11:03am codeine phosphate 2 mg/ml / guaiFENesin 20 mg/ml oral solution (3 sources) Opioid Agonist Start: 05-09-2025 End: 05-13-2025 take 10 mL by mouth every four hours as needed 10 mL, Oral, EVERY 4 HOURS NEEDED, Starting on Mon05/09/25 at 1141, Until Mon05/13/25 at 1552, Congestion, Cough Start: 05-08-2025 take 1 mL by mouth every six h ours collagenase 0.25 unt/mg topical ointment (11 sources) Collagen-specific Enzyme Start: 04-21-2025 End: 09-16-2025 1 Application, Topical, DAILY, First dose on Mon05/09/25 at 0900, Until Discontinued, Patient may self-administer. Apply to foot wound Start: 04-21-2025 SantyL ointmen t 04/21/2025 Active cyclobenzaprine hydrochloride 10 mg oral tablet (1 source) Muscle Relaxant Start: 03-17-2025 End: 03-20-2025 take 10 mg by mouth every eight hours 10 mg, Oral, Every 8 hours scheduled, First dose on Mon03/17/25 at 2200 dexamethasone 1 mg/ml / neomycin 3.5 mg/ml / polymyxin b 26304 unt/ml ophthalmic suspension (1 source) Aminoglycoside Antibacterial, Polymyxin-class Antibacterial, Corticosteroid End: 08-09-2023 neomycin-polymyxi n-dexamethasone (MAXITROL) 3.5mg/mL-10,000 unit/mL-0.1 % ophthalmic suspension docusate sodium 100 mg oral capsule (20 sources) Start: 07-15-2021 End: 05-09-2025 take 1 capsule by mouth twice daily docusate 100 MG capsule Take 1 capsule by mouth 2 times daily. 60 capsule 07/15/2021 05/09/2025 Discontinued Start: 09-04-2011 End: 03-13-2019 docusate sodium (COLACE) 100 MG capsule Take 100 mg by mouth . 0 09/04/2011 03/13/2019 Discontinued (Therapy completed) docusate sodium 50 mg / sennosides, fci 8.6 mg oral tablet (13 sources) Start: [...] May be crushed if given via tube. 0.4 ml enoxaparin sodium 100 mg/ml prefilled [...] Every 5 min PRN, Pain, Starting on 03/17/25 at 1601, For 4 doses, PACU (only), [] Do not give more than 100 mcg while in PACU. Start: 04-14-2022 End: 04-14-2022 fentaNYL (SUBLIMAZE) injecti on 50 mcg Start: 09-07-2018 End: 09-08-2018 50 mcg, Intravenous, Every 5 min PRN, moderate to severe pain, Starting Mon09/07/18 at 1507, For 4 doses, PACU (only) fluticasone propionate 0.05 mg/actuat metered dose nasal spray (20 sources) Corticosteroid Start: 03-11-2025 End: 05-13-2025 take 1 spray(s) nasal route once daily as needed for rhinitis 1 spray, Nasal, DAILY NEEDED, Starting on Mon05/09/25 at 2303, Until Mon05/13/25 at 1552, Allergies, Rhinitis, Dose is for each nostril. Start: 05-21-2024 End: 05-13-2025 fluticasone 50 MCG/ACT Suspe nsion nasal spray 1 spray by Nasal route daily as needed. 05/13/2025 Active Start: 02-20-2024 End: 05-21-2024 take 1 [...] 50 MCG/ACT Nasal for 90 Days Active 30 actuat fluticasone furoate 0.1 mg/actuat / umeclidinium 0.0625 mg/actuat / vilanterol 0.025 mg/actuat dry powder inhaler (5 sources) Anticholinergic, Corticosteroid, beta2-Adrenergic Agonist Start: 10-27-2022 End: 08-09-2023 htmyzzssxfn-mkryijose-gmjwtl er (Trelegy Ellipta) 100-62.5-25 mcg DsDv 1 puff every night at bedtime . 0 10/27/2022 08/09/2023 Discontinued (Discontinued by another clinician) gabapentin 100 mg oral capsule (20 sources) Anti-epileptic Agent Start: 01-19-2022 End: 11-08-2022 take 100 mg by mouth every eight hours 100 mg, Oral, Every 8 hours scheduled, First dose on Mon04/15/22 at 0200 Start: 10-05-2021 take [address] [facility] three times daily gabapentin 300 mg Cap [...] on Mon09/04/18 at 2350 Start: 07-12-2018 End: 05-09-2025 take 3 capsules by mouth three times [...] (eight) hours (Days supply per fill: {DAYS SUPPLY:[id number]}) . 0 Active 250 ml heparin sodium, [...] 03-17-2025 End: 03-17-2025 0.5 mg, Intravenous, Every 10 min PRN, Pain, Starting on 03/17/25 at 1601, For 6 doses, PACU (only), Give if fentanyl not effective or not ordered. Do not give more than 3 mg total. HYDROmorphone in 0.9 % NaCl (DILAUDID) 15 mg/30 mL (0.5 mg/mL) AGRICULTURAL COMMODITIES INSPECTOR (1 source) Start: 09-06-2018 End: 09-07-2018 HYDROmorphone in 0.9 % NaCl (DILAUDID) 15 mg/30 mL (0.5 mg/mL) AGRICULT[employer] COMMODITIES INSPECTOR hydrOXYzine hydrochloride 25 mg oral tablet (2 sources) Antihistamine Start: 05-10-2025 End: 05-13-2025 take 1 tablet by mouth every six hours as needed 25 mg, Oral, EVERY 6 HOURS NEEDED, Starting on 05/10/25 at 1005, Until 05/13/25 at 1552, Anxiety iopamidoL (ISOVUE-370) 370 mg iodine /mL (76 %) injection 75 mL (1 source) Start: 11-03-2022 End: 11-03-2022 iopamidoL (ISOVUE-370) 370 mg iodine /mL (76 %) injection 75 mL [...] CpSP Take by mouth . 0 Active lactulose 667 mg/ml oral solution (2 sources) Osmotic Laxative Start: 05-11-2025 End: 05-13-2025 20 g, Oral, 2 TIMES DAILY NEEDED, Starting on Mon05/11/25 at 0916, Until Mon05/13/25 at 1552, Constipation 1st Line lidocaine hydrochloride 0.02 mg/mg topical gel (1 source) Antiarrhythmic, Amide Local Anesthetic Start: 03-17-2025 End: 03-21-2025 1 Application, Intra-urethral, As needed, For insertion of Urinary Catheter, Starting on Mon03/17/25 at 2111, For 1 dose losartan potassium 50 mg oral tablet (20 sources) Angiotensin 2 Receptor María Start: 05-09-2025 End: 05-13-2025 take 25 mg by mouth once daily 25 mg, Oral, DAILY, First dose on Mon05/09/25 at 0900, Until Discontinued Start: 05-08-2025 take 1 tablet by lucy th twice daily Start: 04-25-2022 End: 05-08-2025 take 1 tablet by mouth once daily Losartan 50 mg tablet Discontinued 50 MG PO Daily April 25, 2022 12:00am May 08, 2025 7:16pm Start: 04-15-2022 End: 04-15-2022 take 50 mg [...] 25 mg by mouth daily. 0 Active magnesium citrate 58.2 mg/ml oral solution (9 sources) Start: 09-13-2018 End: 10-12-2018 magnesium citrate solution T vini 296 mL by mouth as needed (Take if no bowel movement for 2-3 days) . 296 mL 0 09/13/2018 10/12/2018 Discontinued Start: 09-05-2018 End: 09-05-2018 take 296 mL by mouth once 296 mL, Oral, Once, Mon at 1700, For 1 dose magnesium hydroxide 80 mg/ml oral suspension (1 source) Start: 01-19-2022 End: 01-21-2022 magnesium hydroxide (MOM) 400 mg/5 mL suspension 2,400 mg melatonin 3 mg oral tablet (4 sources) Start: 05-09-2025 End: 05-13-2025 take 6 mg by mouth once daily at bedtime as needed 6 mg, Oral, DAILY AT BEDTIME NEEDED, Starting on Mon05/09/25 at 0220, Until Mon05/13/25 at 1552, Insomnia Start: 03-14-2025 End: 03-21-2025 Start: 01-19-2022 End: 01-21-2022 melatonin Tab 5 mg metoprolol tartrate 50 mg oral tablet (20 sources) beta-Adrenergic María Start: 01-19-2022 End: 01-21-2022 take 50 mg by mouth twice daily 50 mg, Oral, 2 times daily, First dose on Mon01/19/22 at 0900 Start: 09-05-2018 End: 09-13-2018 take 50 mg by mouth once daily 50 mg, Oral, Daily, [facility] dose on Mon09/05/18 at 1700 DO NOT CRUSH OR CHEW. Start: 05-10-2017 End: 06-20-2025 take 50 mg by mouth twice daily 50 mg, Oral, 2 TIMES D AILY, First dose on Mon05/09/25 at 0900, Until Discontinued Start: 05-10-2017 End: 06-20-2025 take 1 tablet by mouth in the morning metoprolol tartrate (Lopressor) 50 MG tablet Indications: Benign essential hypertension Take 1 tablet (50 mg) by mouth in the morning and 1 tablet (50 mg) before bedtime. 180 tablet 3 06/20/2024 06/20/2025 Active End: 05-09-2025 take 1 tablet by mouth twice daily metoprolol succinate 50 MG PO tablet XL Take 1 tablet by mouth 2 times daily. 05/09/2025 Discontinued End: 09-13-2018 take 1 tablet by mouth every twenty-four hours metoprolol succinate (TOPROL-XL) 50 MG 24 hr tablet Take 50 mg by mouth . 0 09/13/2018 Discontinued naloxegol 12.5 mg oral tablet (1 source) [...] Drug End: 08-09-2023 nepafenac (Ilevro) 0.3 % Jeannette omeprazole 40 mg delayed release oral capsule (20 sources) Proton Pump Inhibitor Start: 04-25-2022 End: 05-02-2025 Omeprazole 40 mg Capsule,Delayed Release(Dr/Ec) Discontinued 20 MG PO Daily as needed for heartburn April 25, 2022 12:00am May 02, 2025 4:14pm Start: 04-25-2022 take 20 mg by mouth once daily Omeprazole Active 20 MG PO Daily April 24, 2022 11:00pm Start: 04-25-2022 take [address] [facility] once daily Omeprazole (Prilosec) 40 mg Capsule,Delayed Release(Dr/Ec) Active 40 MG PO Daily April 25, 2022 12:00am Start: 11-27-2019 take [address] [facility] once daily omeprazole [address] capsule Take 1 capsule by mouth daily. 30 capsule 07/15/2021 Active ondansetron (ZOFRAN-ODT) disintegrating tablet 4 mg (4 [...] needed ondansetron (ZOFRAN-ODT) disintegrating tablet 4 mg Ondansetron 4mg/2ml (ZOFRAN) injection 4 mg (2 sources) Start: 05-09-2025 End: 05-13-2025 take 4 mg intravenously every six hours as needed Ondansetron 4mg/2ml (ZOFRAN) injection 4 mg oxyCODONE hydrochloride 5 mg oral tablet (16 sources) Opioid Agonist Start: 03-17-2025 End: 03-21-2025 [...] dose reduction, call physician. Start: 07-15-2021 End: 05-09-2025 take 1-2 tablets by mouth every four to six hours as needed for pain oxyCODONE 5 MG tablet Indications: Acute postoperative pain of right hip Take 1-2 tabs po q 4-6 hours PRN pain. Wean as tolerated. 40 tablet 07/15/2021 05/09/2025 Discontinued Start: 09-07-2018 End: 09-20-2018 take 1 tablet [...] (may repeat), moderate to severe pain, Starting Tu09/04/18 at 2336 Initiate with 5 mg oral [...] pantoprazole 40 mg delayed release oral tablet (18 sources) Proton Pump Inhibitor Start: 05-09-2025 End: 05-13-2025 take 40 mg by mouth once daily 40 mg, Oral, DAILY, First dose on Mon05/09/25 at 0900, Until Discontinued, Swallow whole; do not crush or chew., Indications: Continuation of Home Therapy Start: 03-15-2025 End: 03-21-2025 take 40 mg by mouth once daily 40 mg, Oral, Daily, Fir st dose on Mon03/15/25 at 0900, DO NOT [...] 0-10 mL of mixture polyethylene glycol 3350 61552 mg powder for oral solution (20 sources) Osmotic Laxative Start: 05-11-2025 End: 05-13-2025 17 g, Oral, 2 TIMES DAILY, First dose on 05/11/25 at 0930, Until Discontinued Start: 05-10-2025 End: 05-11-2025 17 g, Oral, 3 TIMES DAILY NEEDED, Starting on 05/10/25 at 1618, Until 05/11/25 at 0916, Constipation 1st Line Start: 05-08-2025 End: 05-10-2025 17 g, Oral, DAILY NEEDED, Starting on Mon05/09/25 at 0221, Until 05/10/25 at 1619, Constipation 1st Line Start: 09-04-2011 End: 05-09-2025 take 1 dose by mouth twice daily polyethylene glycol PO PACK take 1 Packet by mouth 2 times daily. 60 Packet 5 09/04/2011 05/09/2025 Discontinued (Medication Reconciliation (suppress cancel msg)) Start: 09-04-2011 End: 03-21-2025 polyethylene glycol (MIRALAX ) 17 gram powder Take 17 (seventeen) g by mouth daily . 09/04/2011 Active polyvinyl alcohol 0.014 ml/ml ophthalmic solution (1 source) Start: 03-14-2025 End: 03-21-2025 1 drop, Both Eyes, As needed, dry eyes, Starting on Mon03/14/25 at 2025 prochlorperazine 5 mg/ml injectable solution (2 sources) [...] as needed prochlorperazine (COMPAZINE) injection 5 mg rivaroxaban 2.5 mg oral tablet (20 sources) Factor Xa Inhibitor Start: 05-09-2025 End: 05-13-2025 take 1 tablet by mouth twice daily 2.5 mg, Oral, 2 TIMES DAILY, First dose on Mon05/09/25 at 0900, Until Discontinued, Due to the rapid onset of action of rivaroxaban, no overlap is needed with other anticoagulants (e.g. enoxaparin, heparin). Administer doses of 15mg or greater with food. For patients who cannot swallow whole tablets, the tablets may be crushed and mixed with applesauce immediately prior to use. If administered via feeding tube, crush tablets and mix with 50 mL water. Tube must empty into the stomach for this route., Indications: Peripheral Arterial Disease Start: 04-25-2022 End: 11-08-2022 take 1 tablet by mouth once daily Rivaroxaban (Xarelto) 2.5 mg tablet Active 2.5 MG PO Daily April 25, 2022 12:00am Start: 11-27-2019 End: 03-21-2025 take 1 tablet by mouth twice daily Start: 07-03-2019 Xarelto Start Date: 07/03/19 Status: [...] by mouth . 0 01/19/2022 Discontinued sennosides, fci 8.6 mg oral tablet (15 sources) Start: 05-11-2025 End: 05-13-2025 take 8.6 mg by mouth twice daily 8.6 mg, Oral, 2 TIMES DAILY, First dose (after last modification) on Mon05/11/25 at 0930, Until Discontinued Start: 09-04-2011 End: 05-11-2025 take 8.6 mg by mouth once daily as needed for constipation 8.6 mg, Oral, DAILY NEEDED, Starting on Mon05/09/25 at 0221, Until Mon05/11/25 at 0916, Constipation 1st Line sildenafil 100 mg oral tablet (10 sources) Phosphodiesterase 5 Inhibitor Start: 05-10-2017 End: 10-12-2023 take 1 tablet by mouth once daily as needed Sildenafil 100 mg Tablet Discontinued 100 MG PO Daily as needed for Erectile Dysfunction May 10, 2017 12:00am October 12, 2023 9:54am 250 ml sodium chloride 9 mg/ml injection (19 sources) Start: 05-09-2025 End: 05-13-2025 Intravenous, at 20 mL/hr, NEEDED, Starting on Mon05/09/25 at 0220, Until Mon05/13/25 at 1552, Carrier Fluid - See Admin. Inst, 250mL 0.9NS to be used as carrier fluid for intermittent small volume or piggyback medication administration as needed. Infusion rate of the carrier fluid should be set at 20 mL/hr unless the rate as the intermittent medication is less than 20 mL/hr. For intermittent medications with a rate less than 20 mL/hr set the carrier fluid at that rate of the intermittent or piggy back medication. Start: 03-17-2025 End: 03-21-2025 1,000 mL, Intra-catheter [...] 0.9 % contrast line flush 10 mL therapeutic multivitamin-minerals tablet (10 sources) Start: 07-15-2021 End: 05-09-2025 take 1 tablet by mouth at bedtime therapeutic multivitamin-minerals tablet Take 1 tablet by mouth at bedtime. 30 tablet 07/15/2021 05/09/2025 Discontinued (Medication Reconciliation (suppress cancel msg)) Start: 07-15-2021 take 1 tablet by lucy th at bedtime therapeutic multivitamin-minerals tablet Take 1 tablet by mouth at bedtime. 30 tablet 0 07/15/2021 Active 10 actuat tiotropium 0.0025 mg/actuat inhalation spray [...] (SPIRIVA RESPIMAT) 2.5 mcg/actuation inhaler 2 puff 10 ml tranexamic acid 100 mg/ml injection (3 sources) Antifibrinolytic Agent Start: 05-10-2025 End: 05-11-2025 500 mg, Nebulization, 2 TIMES DAILY, First dose on 05/10/25 at 0900, Until Discontinued, For nebulization only. Start: 05-08-2025 take 500 mg by inhalation thre e times daily traZODone hydrochloride 50 mg oral tablet (1 [...] in sodium chloride 0.9% 500 mL IVPB Vancomycin HCl in NaCl (Vancocin) 1,250 mg 287.5 ml premade IVPB (2 sources) Start: 05-09-2025 End: 05-10-2025 take 1250 mg intravenously every twelve hours 1,250 mg, Intravenous, Administer over 2 Hours, EVERY 12 HOURS NON-STANDARD, First dose (after last reorder) on Mon05/09/25 at 1830, Until Discontinued, Indication for treatment with Vancomycin - Culture/Source: infected bullae vs lung abscess Vancomycin HCl in NaCl (Vancocin) 1,500 mg 290 ml premade IVPB (4 sources) Start: 05-10-2025 End: 05-12-2025 take 1500 mg intravenously every twelve hours 1,500 mg, Intravenous, Administer over 2 Hours, EVERY 12 HOURS NON-STANDARD, First dose (after last modification) on Mon05/10/25 at 1915, Until Discontinued, Indication for treatment with Vancomycin - Culture/Source: infected bullae vs lung abscess Start: 05-09-2025 End: 05-09-2025 1,500 mg (rounded from 1,393 .5 mg = 15 mg/kg 92.9 kg Adjusted weight), Intravenous, Administer over 2 Hours, ONCE, 1 dose, On Mon05/09/25 at 0500, Indication for treatment with Vancomycin - Culture/Source: infected bullae vs lung abscess Problems Active Problems Problem Classification Problem Date [...] Chronic Chronic obstructive pulmonary disease and bronchiectasis (6 sources) Bronchitis, not specified as acute or chronic; Translations: [Bronchitis] Onset: 9 05-09-2025 Episodic Chronic ulcer of skin (20 sources) Ulcer of toe; Translations: [Ischemic ulcer [...] Coronary atherosclerosis; Translations: [Atherosclerotic heart disease of [place] coronary artery without angina pectoris] Onset: 8 07-15-2021 Chronic Deficiency and other anemia (4 sources) Anemia; Translations: [Anemia, unspecified] Onset: 5 05-09-2025 Episodic Disorders of lipid metabolism (20 sources) Hypercholesterolemia; Translations: [Pure hypercholesterolemia, unspecified] Onset: 4 Resolved: 4 09-05-2018 Chronic Disorders of teeth and jaw (1 source) Arthralgia of bilateral temporomandibular joint; Translations: [Bilateral temporomandibular joint pain] Essential hypertension (20 sources) Essential hypertension; Translations: [Essential (primary) hypertension] Onset: 8 09-05-2018 Chronic Gangrene (20 sources) Gangrenous disorder; Translations: [Gangrene, not elsewhere classified] Onset: 9 Resolved: 4 10-04-2018 Episodic Gangrene (14 sources) Gangrene of left foot; [...] caused by tuberculosis or sexually transmitted disease) (15 sources) Osteomyelitis of right foot; Translations: [Osteomyelitis, unspecified] Onset: 5 04-14-2025 Chronic Miscellaneous mental health disorders (5 sources) Primary insomnia; Translations: [Primary insomnia] 08-12-2024 Chronic Nonspecific chest pain (20 sources) Other chest pain; Translations: [Chest pain, unspecified] Onset: 4 Resolved: 4 05-16-2024 Episodic Occlusion or stenosis of precerebral arteries (20 [...] [Idiopathic aseptic necrosis of unspecified femur] Onset: 2 Resolved: 4 04-26-2024 Chronic Other bone disease and musculoskeletal deformities (14 sources) History of amputation of left foot; [...] Critical lower limb ischemia 03-21-2025 Episodic Other circulatory disease (2 sources) Wheeze - rhonchi; Translations: [Other specified symptoms and signs involving the circulatory and respiratory systems] 05-02-2025 Episodic Other connective tissue disease (20 sources) [...] right leg] Episodic Other connective tissue disease (2 sources) Pain in right leg; Translations: [Pain in right leg] Onset: 5 Episodic Other connective tissue disease (2 sources) Posterior tibial tendinitis, right leg; Translations: [Posterior tibial tendinitis, right leg] Onset: 3 Episodic Other connective tissue disease (1 source) Pain in right foot; Translations: [Pain in right foot] Onset: 5 Episodic Other diseases of kidney and ureters [...] [Solitary pulmonary nodule] Onset: 2 Episodic Other lower respiratory disease (20 sources) Dyspnea; Translations: [Dyspnea, unspecified] Onset: 4 06-05-2023 Episodic Other lower respiratory disease (11 sources) Hemoptysis; Translations: [Hemoptysis] Onset: 5 05-02-2025 Episodic Other lower respiratory disease (2 sources) Abscess of lung; Translations: [Abscess of lung without pneumonia] 05-05-2025 Episodic Other lower respiratory disease (1 source) Dyspnea, unspecified; Translations: [Dyspnea, unspecified] Onset: 5 Episodic Other lower respiratory disease (1 source) Abscess of lung without pneumonia; Translations: [Abscess of lung without pneumonia] Onset: 5 Episodic Other lower respiratory disease (2 sources) Hemoptysis; Translations: [Hemoptysis] Onset: 5 Episodic Other male genital disorders (3 sources) [...] Obese class I; Translations: [Obesity, unspecified] Onset: 8 Resolved: 4 07-15-2021 Chronic Other nutritional; endocrine; and metabolic disorders [...] sources) Peripheral vascular disease; Translations: [Atherosclerosis of [place] arteries of the extremities] Onset: 8 Resolved: 2 Chronic Peripheral and visceral atherosclerosis (1 source) 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; Translations: [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)] Pneumonia (except that caused by tuberculosis or sexually transmitted disease) (20 sources) Pneumonia, unspecified organism; Translations: [Community acquired pneumonia] Onset: 3 Resolved: 4 Episodic Pulmonary heart disease (20 sources) Pulmonary hypertension; Translations: [Pulmonary hypertension, unspecified] Onset: 4 04-26-2024 Chronic Residual codes; unclassified (4 sources) Other specified postprocedural states Onset: 2 Resolved: 2 Episodic Residual codes; unclassified (1 source) Peripheral edema; Translations: [Edema, unspecified] Episodic Respiratory failure; insufficiency; arrest (adult) (3 sources) Acute respiratory failure; Translations: [Acute respiratory failure with hypoxia] Onset: 5 05-05-2025 Episodic Spondylosis; intervertebral disc disorders; other back problems (20 sources) Lumbosacral spondylosis without myelopathy; Translations: [Spondylosis without myelopathy or radiculopathy, lumbosacral region] Onset: 3 01-19-2023 Chronic Substance-related disorders (3 sources) Opioid dependence; Translations: [Opioid dependence, uncomplicated] Onset: 5 05-02-2025 Chronic Superficial injury; contusion (20 sources) Contusion of upper limb; Translations: [Contusion of left upper arm, initial encounter] Onset: 3 Resolved: 4 Episodic Unclassified (2 sources) Unknown / UNK(Unknown) Onset: 7 Unclassified (3 sources) Asymptomatic microscopic hematuria 10-05-2021 Unclassified (3 sources) Drug therapy finding 07-04-2019 Unclassified (1 source) Aneurysm of the ascending aorta, without rupture; Translations: [Aneurysm of the ascending aorta, without rupture] Onset: 3 Unclassified (6 sources) call to schedule follow up with Dr. Beaver Unclassified (1 source) Hematoma of arm, left, initial encounter 03-21-2025 Unclassified (2 sources) Please arrange a follow-up appointment upon discharge from facility. Viral infection (20 sources) Herpes zoster; Translations: [Zoster without complications] Onset: 2 Resolved: 4 04-26-2024 Episodic Past or Other Problems Problem Classification Problem [...] of aortocoronary bypass graft] Onset: 06-11-2024 Episodic Immunizations and screening for infectious disease (20 sources) Needs influenza immunization; Translations: [Encounter for immunization] Onset: 06-06-2023 Resolved: 04-26-2024 04-26-2024 Episodic Mood disorders (20 sources) Mood disorders Onset: 04-26-2024 Resolved: 03-15-2025 04-26-2024 Nausea and vomiting (20 sources) Nausea; Translations: [Nausea] Onset: 06-06-2023 Resolved: 04-26-2024 04-26-2024 Episodic Other connective tissue disease (20 sources) Pain [...] 04-09-2023 04-09-2023 Episodic Other non-traumatic joint disorders (10 sources) Hip pain; Translations: [Pain in unspecified hip] Onset: 09-04-2011 Resolved: 09-04-2011 Episodic Other upper respiratory infections (20 sources) Sinusitis; Translations: [Chronic sinusitis, unspecified] Onset: 04-09-2023 Resolved: 04-26-2024 04-26-2024 Chronic Residual codes; unclassified (2 sources) Edema of [...] [Sciatica, left side] Onset: 04-09-2023 04-09-2023 Episodic Unclassified (1 source) Aneurysm of the ascending aorta, without rupture; Translations: [Aneurysm of the ascending aorta, without rupture] Onset: 12-18-2024 Unclassified (5 sources) Peripheral artery disease 03-21-2025 Urinary tract infections (20 sources) Acute cystitis; Translations: [Acute cystitis without hematuria] Onset: 03-21-2024 Resolved: 04-26-2024 04-26-2024 Episodic Results Test Name Value Interpretation Reference Range Facility CREATININEon 05-13-2025 Creatinine [Mass/Vol] 0.77 mg/dL Normal 0.70-1.30 [facility] Comment on above: Performed By: #### C REAB #### [facility] (DEFAULT) [address] [address] GFR/1.73 sq M.predicted among non-blacks MDRD (S/P/Bld) [Vol rate/Area] 87 mL/min/{1.73_m2} Normal >=60 [facility] Comment on above: Result Comment: Repo rted eGFR is based on the CKD-EPI 2020 equation using creatinine, age, and sex. Performed By: #### C REAB #### [facility] (DEFAULT) [address] [address] Laboratory - Chemistry and C hemistry - challengeon 05-13-2025 Creatinine [Mass/Vol] 0.77 mg/dL 0.70 - 1.30 mg/dL [facility] No Panel Informationon 05-13 eGFR, CKD-EPI, Male 86 - PINF [facility] Comment on above: Reported eGFR is bas ed on the CKD-EPI 2020 equation using creatinine, age, and sex. Interpretation and review of laboratory results Normal [facility] Bacteria identified Respirat ory culture Nom (Unsp spec)Ordered By: Jacinta Ramirez on 05-12-2025 Bacteria identified Cx Nom (Unsp spec) Growth [facility] Bacteria identified Cx Nom (Unsp spec) Moderate Growth Common oropharyngeal microbes [facility] Microscopic observation Other stain Nom (Unsp spec) Neutrophils, Rare [facility] Microscopic observation Other stain Nom (Unsp spec) Contaminating bacteria and epithelials, LIGHT [facility] Microscopic observation Other stain Nom (Unsp spec) Specimen is of very poor quality and results may be compromised suggest recollection if clinically indicated [facility] CBC AND ELECTRONIC DIFFon Abs Baso Auto < Normal 0.00-0.09 [facility] Comment on above: Performed By: #### V ANCTR #### [facility] (DEFAULT) [address] [address] Basophils/100 WBC (Bld) 0.2 % Normal [facility] Comment on above: Performed By: #### V ANCTR #### [facility] (DEFAULT) [address] [address] DIFF STATUS Electronic Differential Normal [facility] Comment on above: Performed By: #### V ANCTR #### [facility] (DEFAULT) [address] [address] Eosinophils (Bld) [#/Vol] 0.05 10*3/uL Normal 0.00-0.48 [facility] Comment on above: Performed By: #### V ANCTR #### [facility] (DEFAULT) [address] [address] Eosinophils/100 WBC (Bld) 0.9 % Normal [facility] Comment on above: Performed By: #### V ANCTR #### [facility] (DEFAULT) [address] [address] Hematocrit (Bld) [Volume fraction] 29.7 % Low 39.6-48.8 [facility] Comment on above: Performed By: #### V ANCTR #### [facility] (DEFAULT) [address] [place] [address] Hemoglobin (Bld) [Mass/Vol] 10.0 g/dL Low 13.4-16.8 [facility] Comment on above: Performed By: #### V ANCTR #### [facility] (DEFAULT) [address] [address] Immature Grans % 1.8 % Normal [facility] Comment on above: Performed By: #### V ANCTR #### [facility] (DEFAULT) [address] [place] [address] Immature Grans Absolute 0.10 K/uL High <=0.07 [facility] Comment on above: Performed By: #### V ANCTR #### [facility] (DEFAULT) [address] [address] Lymphocytes (Bld) [#/Vol] 0.59 10*3/uL Low 0.83-3.57 [facility] Comment on above: Performed By: #### V ANCTR #### [facility] (DEFAULT) [address] [address] Lymphocytes/100 WBC (Bld) 10.7 % Normal [facility] Comment on above: Performed By: #### V ANCTR #### [facility] (DEFAULT) [address] [address] MCV (RBC) [Entitic vol] 92.0 fL Normal 79.0-94.5 [facility] Comment on above: Performed By: #### V ANCTR #### [facility] (DEFAULT) [address] [address] Mean Cell Hgb 31.0 pg Normal 26.1-33.3 [facility] Comment on above: Performed By: #### V ANCTR #### [facility] (DEFAULT) [address] [address] Mean Cell Hgb Conc 33.7 g/dL Normal 31.9-36.5 [facility] Comment on above: Performed By: #### V ANCTR #### [facility] (DEFAULT) [address] [place] [address] Monocytes (Bld) [#/Vol] 0.49 10*3/uL Normal 0.24-0.93 [facility] Comment on above: Performed By: #### V ANCTR #### [facility] (DEFAULT) [address] [place] [address] Monocytes/100 WBC (Bld) 8.9 % Normal [facility] Comment on above: Performed By: #### V ANCTR #### [facility] (DEFAULT) [address] [address] Nucleated RBC 0.0 /100 WBC Normal <=0.2 [facility] Comment on above: Performed By: #### V ANCTR #### [facility] (DEFAULT) [address] [place] [address] Platelet mean volume (Bld) [Entitic vol] 9.4 fL Normal 8.7-12.3 [facility] Comment on above: Performed By: #### V ANCTR #### [facility] (DEFAULT) [address] [address] Platelets (Bld) [#/Vol] 215 10*3/uL Normal 146-337 [facility] Comment on above: Performed By: #### V ANCTR #### [facility] (DEFAULT) [address] [address] RBC (Bld) [#/Vol] 3.23 10*6/uL Low 4.38-5.83 [facility] Comment on above: Performed By: #### V ANCTR #### [facility] (DEFAULT) [address] [address] RBC Distribution 14.5 % High 10.9-14.[address] [facility] Comment on above: Performed By: #### V ANCTR #### [facility] (DEFAULT) [address] [address] Segs + Bands Auto 77.5 % Normal [facility] Comment on above: Performed By: #### V ANCTR #### [facility] (DEFAULT) [address] [address] Segs + Bands,Absolute Auto 4.28 K/uL Normal 1.57-6.19 [facility] Comment on above: Performed By: #### V ANCTR #### [facility] (DEFAULT) [address] [address] WBC (Bld) [#/Vol] 5.52 10*3/uL Normal 3.73-10.10 [facility] Comment on above: Performed By: #### V ANCTR #### [facility] (DEFAULT) [address] [address] CREATININEon 05-12-2025 Creatinine [Mass/Vol] 0.78 mg/dL Normal 0.70-1.30 [facility] Comment on above: Performed By: #### C REAB #### [facility] (DEFAULT) [address] [address] GFR/1.73 sq M.predicted among non-blacks MDRD (S/P/Bld) [Vol rate/Area] 87 mL/min/{1.73_m2} Normal >=60 [facility] Comment on above: Result Comment: Repo rted eGFR is based on the CKD-EPI 2020 equation using creatinine, age, and sex. Performed By: #### C REAB #### [facility] (DEFAULT) [address] [address] Laboratory - Chemistry and C hemistry - challengeon 05-12-2025 Creatinine [Mass/Vol] 0.78 mg/dL 0.70 - 1.30 mg/dL [facility] Laboratory - Hematology and Cell countson 05-12-2025 Basophils (Bld) [#/Vol] K/uL 0.00 - 0.09 K/uL [facility] Basophils/100 WBC (Bld) 0.2 % [facility] Differential cell count method Nom (Bld) Electronic Differential [facility] Eosinophils (Bld) [#/Vol] 0.05 10*3/uL 0.00 - 0.48 K/uL [facility] Eosinophils/100 WBC (Bld) 0.9 % [facility] Erythrocyte distribution width (RBC) [Ratio] 14.5 % High 10.9 - 14.3 % [facility] Hematocrit (Bld) [Volume fraction] 29.7 % Low 39.6 - 48.8 % [facility] Hemoglobin (Bld) [Mass/Vol] 10.0 g/dL Low 13.4 - 16.8 g/dL [facility] Immature granulocytes (Bld) [#/Vol] 0.10 10*3/uL High NINF - 0.07 K/uL [facility] Immature granulocytes/100 WBC (Bld) 1.8 % [facility] Lymphocytes (Bld) [#/Vol] 0.59 10*3/uL Low 0.83 - 3.57 K/uL [facility] Lymphocytes/100 WBC (Bld) 10.7 % [facility] MCH (RBC) [Entitic mass] 31.0 pg 26.1 - 33.3 pg [facility] MCHC (RBC) [Mass/Vol] 33.7 g/dL 31.9 - 36.5 g/dL [facility] MCV (RBC) [Entitic vol] 92.0 fL 79.0 - 94.5 fL [facility] Monocytes (Bld) [#/Vol] 0.49 10*3/uL 0.24 - 0.93 K/uL [facility] Monocytes/100 WBC (Bld) 8.9 % [facility] Neutrophils (Bld) [#/Vol] 4.28 10*3/uL 1.57 - 6.19 K/uL [facility] Nucleated RBC/100 WBC (Bld) [Ratio] 0.0 % [facility] Platelet mean volume (Bld) [Entitic vol] 9.4 fL 8.7 - 12.3 fL [facility] Platelets (Bld) [#/Vol] 215 10*3/uL 146 - 337 K/uL [facility] RBC (Bld) [#/Vol] 3.23 10*6/uL Low [facility] Segmented neutrophils/100 WBC (Bld) 77.5 % [facility] WBC (Bld) [#/Vol] 5.52 10*3/uL 3.73 - 10. 10 K/uL [facility] No Panel Informationon 05-12 ABO/RH(D) TYPE Positive [facility] Specimen Expiration 05/15/2025 23:59 [facility] eGFR, CKD-EPI, Male 86 - PINF [facility] Comment on above: Reported eGFR is bas ed on the CKD-EPI 2020 equation using creatinine, age, and sex. Interpretation and review of laboratory results Normal [facility] Interpretation and review of laboratory results Abnormal [facility] TYPE AND SCREENon 05-12-2025 ABO/RH(D) TYPE Positive Normal [facility] Comment on above: Performed By: #### V ANCTR #### [facility] (DEFAULT) [address] [place] [address] Specimen Expiration 05/15/2025 23:59 Normal [facility] Comment on above: Performed By: #### V ANCTR #### [facility] (DEFAULT) [address] [place] [address] CBC AND ELECTRONIC DIFFon Abs Baso Auto < Normal 0.00-0.09 [facility] Comment on above: Performed By: #### L [id number] #### [facility] (DEFAULT) [address] [place] [address] Basophils/100 WBC (Bld) 0.2 % Normal [facility] Comment on above: Performed By: #### L [id number] #### [facility] (DEFAULT) [address] [place] [address] DIFF STATUS Electronic Differential Normal [facility] Comment on above: Performed By: #### L [id number] #### [facility] (DEFAULT) [address] [place] [address] Eosinophils (Bld) [#/Vol] 0.07 10*3/uL Normal 0.00-0.48 [facility] Comment on above: Performed By: #### L [id number] #### [facility] (DEFAULT) [address] [place] [address] Eosinophils/100 WBC (Bld) 1.1 % Normal [facility] Comment on above: Performed By: #### L [id number] #### [facility] (DEFAULT) [address] [place] [address] Hematocrit (Bld) [Volume fraction] 33.7 % Low 39.6-48.8 [facility] Comment on above: Performed By: #### L [id number] #### [facility] (DEFAULT) [address] [place] [address] Hemoglobin (Bld) [Mass/Vol] 11.1 g/dL Low 13.4-16.8 [facility] Comment on above: Result Comment: Warm ed to 37C Performed By: #### L [id number] #### [facility] (DEFAULT) [address] [address] Immature Grans % 2.5 % Normal [facility] Comment on above: Performed By: #### L [id number] #### [facility] (DEFAULT) [address] [place] [address] Immature Grans Absolute 0.16 K/uL High <=0.07 [facility] Comment on above: Performed By: #### L [id number] #### [facility] (DEFAULT) [address] [place] [address] Lymphocytes (Bld) [#/Vol] 0.75 10*3/uL Low 0.83-3.57 [facility] Comment on above: Performed By: #### L [id number] #### [facility] (DEFAULT) [address] [place] [address] Lymphocytes/100 WBC (Bld) 11.5 % Normal [facility] Comment on above: Performed By: #### L [id number] #### [facility] (DEFAULT) [address] [place] [address] MCV (RBC) [Entitic vol] 89.9 fL Normal 79.0-94.5 [facility] Comment on above: Result Comment: Warm ed to 37C Performed By: #### L [id number] #### [facility] (DEFAULT) [address] [address] Mean Cell Hgb 29.6 pg Normal 26.1-33.3 [facility] Comment on above: Result Comment: Warm ed to 37C Performed By: #### L [id number] #### [facility] (DEFAULT) [address] [address] Mean Cell Hgb Conc 32.9 g/dL Normal 31.9-36.5 [facility] Comment on above: Result Comment: Warm ed to 37C Performed By: #### L [id number] #### [facility] (DEFAULT) [address] [place] [address] Monocytes (Bld) [#/Vol] 0.63 10*3/uL Normal 0.24-0.93 [facility] Comment on above: Performed By: #### L [id number] #### [facility] (DEFAULT) [address] [place] [address] Monocytes/100 WBC (Bld) 9.7 % Normal [facility] Comment on above: Performed By: #### L [id number] #### [facility] (DEFAULT) [address] [address] Nucleated RBC 0.0 /100 WBC Normal <=0.2 [facility] Comment on above: Performed By: #### L [id number] #### [facility] (DEFAULT) [address] [place] [address] Platelet mean volume (Bld) [Entitic vol] 9.9 fL Normal 8.7-12.3 [facility] Comment on above: Performed By: #### L [id number] #### [facility] (DEFAULT) [address] [place] [address] Platelets (Bld) [#/Vol] 211 10*3/uL Normal 146-337 [facility] Comment on above: Performed By: #### L [id number] #### [facility] (DEFAULT) [address] [place] [address] RBC (Bld) [#/Vol] 3.75 10*6/uL Low 4.38-5.83 [facility] Comment on above: Result Comment: Warm ed to 37C Performed By: #### L [id number] #### [facility] (DEFAULT) [address] [place] [address] RBC Distribution 14.5 % High 10.9-14.[address] [facility] Comment on above: Performed By: #### L [id number] #### [facility] (DEFAULT) [address] [place] [address] Segs + Bands Auto 75.0 % Normal [facility] Comment on above: Performed By: #### L [id number] #### [facility] (DEFAULT) [address] [place] [address] Segs + Bands,Absolute Auto 4.88 K/uL Normal 1.57-6.19 [facility] Comment on above: Performed By: #### L [id number] #### [facility] (DEFAULT) [address] [place] [address] WBC (Bld) [#/Vol] 6.50 10*3/uL Normal 3.73-10.10 [facility] Comment on above: Performed By: #### L [id number] #### [facility] (DEFAULT) [address] [place] [address] CHEM 6 (LYTES, BUN CREA)on 0 05-11-2025 Anion gap [Moles/Vol] 14 mmol/L Normal 7-17 [facility] Comment on above: Performed By: #### H ALAN, CHM6 #### [facility] (DEFAULT) [address] [place] [address] Chloride [Moles/Vol] 106 mmol/L Normal 98-108 [facility] Comment on above: Performed By: #### H ALAN, CHM6 #### [facility] (DEFAULT) [address] [place] [address] CO2 [Moles/Vol] 22 mmol/L Normal 21-31 [facility] Comment on above: Performed By: #### H ALAN, CHM6 #### [facility] (DEFAULT) [address] [place] [address] Creatinine [Mass/Vol] 0.89 mg/dL Normal 0.70-1.30 [facility] Comment on above: Performed By: #### H ALAN, CHM6 #### [facility] (DEFAULT) [address] [place] [address] GFR/1.73 sq M.predicted among non-blacks MDRD (S/P/Bld) [Vol rate/Area] 83 mL/min/{1.73_m2} Normal >=60 [facility] Comment on above: Result Comment: Repo rted eGFR is based on the CKD-EPI 2020 equation using creatinine, age, and sex. Performed By: #### H ALAN, CHM6 #### [facility] (DEFAULT) [address] [place] [address] Potassium [Moles/Vol] 3.6 mmol/L Normal 3.5-5.0 [facility] Comment on above: Performed By: #### H FP, CHM6 #### [facility] (DEFAULT) [address] [place] [address] Sodium [Moles/Vol] 138 mmol/L Normal 135-145 [facility] Comment on above: Performed By: #### H FP, CHM6 #### [facility] (DEFAULT) [address] [place] [address] Urea nitrogen [Mass/Vol] 20 mg/dL Normal 7-25 [facility] Comment on above: Performed By: #### H FP, CHM6 #### [facility] (DEFAULT) [address] [place] [address] Urea nitrogen/Creatinine [Mass ratio] 22 mg/mg Normal [facility] Comment on above: Performed By: #### H FP, CHM6 #### [facility] (DEFAULT) [address] [place] [address] HEPATIC FUNCTION PANELon Albumin [Mass/Vol] 3.3 g/dL Low 3.5-5.0 [facility] Comment on above: Performed By: #### H FP, CHM6 #### [facility] (DEFAULT) [address] [place] [address] ALP [Catalytic activity/Vol] 72 U/L Normal 32-126 [facility] Comment on above: Performed By: #### H FP, CHM6 #### [facility] (DEFAULT) [address] [place] [address] ALT [Catalytic activity/Vol] 99 U/L High 10-52 [facility] Comment on above: Performed By: #### H FP, CHM6 #### [facility] (DEFAULT) [address] [place] [address] AST [Catalytic activity/Vol] 34 U/L Normal 10-39 [facility] Comment on above: Performed By: #### H FP, CHM6 #### [facility] (DEFAULT) [address] [place] [address] Bilirubin [Mass/Vol] 0.6 mg/dL Normal <1.5 [facility] Comment on above: Performed By: #### H FP, CHM6 #### [facility] (DEFAULT) [address] [place] [address] Bilirubin.indirect [Mass/Vol] 0.2 mg/dL Normal <0.3 [facility] Comment on above: Performed By: #### H ALAN, CHM6 #### [facility] (DEFAULT) [address] [place] [address] Protein [Mass/Vol] 6.3 g/dL Low 6.4-8.3 [facility] Comment on above: Performed By: #### H ALAN, CHM6 #### [facility] (DEFAULT) [address] [place] [address] Laboratory - Chemistry and C hemistry - challengeon 05-11-2025 Albumin [Mass/Vol] 3.3 g/dL Low 3.5 - 5.0 g/dL [facility] ALP [Catalytic activity/Vol] 72 U/L 32 - 126 U/L [facility] ALT [Catalytic activity/Vol] 99 U/L High 10 - 52 U/L [facility] Anion gap [Moles/Vol] 14 mmol/L 7 - 17 mmol/L [facility] AST [Catalytic activity/Vol] 34 U/L 10 - 39 U/L [facility] Bilirubin [Mass/Vol] 0.6 mg/dL NINF - 1.5 mg/dL [facility] Bilirubin.direct [Mass/Vol] 0.2 mg/dL NINF - 0.3 mg/dL [facility] Chloride [Moles/Vol] 106 mmol/L 98 - 10 8 mmol/L [facility] CO2 [Moles/Vol] 22 mmol/L 21 - 31 mmol/L [facility] Creatinine [Mass/Vol] 0.89 mg/dL 0.70 - 1.30 mg/dL [facility] Potassium [Moles/Vol] 3.6 mmol/L 3.5 - 5.0 mmol/L [facility] Protein [Mass/Vol] 6.3 g/dL Low 6.4 - 8.3 g/dL [facility] Sodium [Moles/Vol] 138 mmol/L 135 - 145 mmol/L [facility] Urea nitrogen [Mass/Vol] 20 mg/dL 7 - 25 mg/dL [facility] Urea nitrogen/Creatinine [Mass ratio] 22 mg/mg [facility] Laboratory - Hematology and Cell countson 05-11-2025 Basophils (Bld) [#/Vol] K/uL 0.00 - 0.09 K/uL [facility] Basophils/100 WBC (Bld) 0.2 % [facility] Differential cell count method Nom (Bld) Electronic Differential [facility] Eosinophils (Bld) [#/Vol] 0.07 10*3/uL 0.00 - 0.48 K/uL [facility] Eosinophils/100 WBC (Bld) 1.1 % [facility] Erythrocyte distribution width (RBC) [Ratio] 14.5 % High 10.9 - 14.3 % [facility] Hematocrit (Bld) [Volume fraction] 33.7 % Low 39.6 - 48.8 % [facility] Hemoglobin (Bld) [Mass/Vol] 11.1 g/dL Low 13.4 - 16.8 g/dL [facility] Comment on above: Warmed to 37C Immature granulocytes (Bld) [#/Vol] 0.16 10*3/uL High NINF - 0.07 K/uL [facility] Immature granulocytes/100 WBC (Bld) 2.5 % [facility] Lymphocytes (Bld) [#/Vol] 0.75 10*3/uL Low 0.83 - 3.57 K/uL [facility] Lymphocytes/100 WBC (Bld) 11.5 % [facility] MCH (RBC) [Entitic mass] 29.6 pg 26.1 - 33.3 pg [facility] Comment on above: Warmed to 37C MCHC (RBC) [Mass/Vol] 32.9 g/dL 31.9 - 36.5 g/dL [facility] Comment on above: Warmed to 37C MCV (RBC) [Entitic vol] 89.9 fL 79.0 - 94.5 fL [facility] Comment on above: Warmed to 37C Monocytes (Bld) [#/Vol] 0.63 10*3/uL 0.24 - 0.93 K/uL [facility] Monocytes/100 WBC (Bld) 9.7 % [facility] Neutrophils (Bld) [#/Vol] 4.88 10*3/uL 1.57 - 6.19 K/uL [facility] Nucleated RBC/100 WBC (Bld) [Ratio] 0.0 % [facility] Platelet mean volume (Bld) [Entitic vol] 9.9 fL 8.7 - 12.3 fL [facility] Platelets (Bld) [#/Vol] 211 10*3/uL 146 - 337 K/uL [facility] RBC (Bld) [#/Vol] 3.75 10*6/uL Low [facility] Comment on above: Warmed to 37C Segmented neutrophils/100 WBC (Bld) 75.0 % [facility] WBC (Bld) [#/Vol] 6.50 10*3/uL 3.73 - 10. 10 K/uL [facility] No Panel Informationon 05-11 Interpretation and review of laboratory results Abnormal [facility] eGFR, CKD-EPI, Male 82 - PINF [facility] Comment on above: Reported eGFR is bas ed on the CKD-EPI 2020 equation using creatinine, age, and sex. Interpretation and review of laboratory results Abnormal [facility] C REACTIVE PROTEINon 025 CRP [Mass/Vol] 37.48 mg/L High <10.00 [facility] Comment on above: Performed By: #### V ANCTR #### [facility] (DEFAULT) [address] [address] CREATININEon 05-10-2025 Creatinine [Mass/Vol] 0.85 mg/dL Normal 0.70-1.30 [facility] Comment on above: Performed By: #### V ANCTR #### [facility] (DEFAULT) [address] [place] [address] GFR/1.73 sq M.predicted among non-blacks MDRD (S/P/Bld) [Vol rate/Area] 85 mL/min/{1.73_m2} Normal >=60 [facility] Comment on above: Result Comment: Repo rted eGFR is based on the CKD-EPI 2020 equation using creatinine, age, and sex. Performed By: #### V ANCTR #### [facility] (DEFAULT) [address] [address] [place] [address] HEMOGLOBIN & HEMATOCRITon Hematocrit (Bld) [Volume fraction] 34.5 % Low 39.6-48.8 [facility] Comment on above: Performed By: #### V ANCTR #### [facility] (DEFAULT) [address] [place] [address] Hemoglobin (Bld) [Mass/Vol] 11.0 g/dL Low 13.4-16.8 [facility] Comment on above: Result Comment: Warm ed to 37C Performed By: #### V ANCTR #### [facility] (DEFAULT) [address] [place] [address]24[address] LOWER RESPIRATORY CULTURE, B ACTERIALon 05-10-2025 Bacteria identified Cx Nom (Unsp spec) Normal [facility] Comment on above: Result Comment: Grow [id number] Moderate Growth Common oropharyngeal microbes Performed By: #### R ES #### [facility] (DEFAULT) [address] [place] [address] 33777 Microscopic observation Gram stain Nom (Unsp spec) Normal [facility] Comment on above: Result Comment: Neut rophils, Rare Contaminating bacteria and epithelials, LIGHT Specimen is of very poor quality and results may be compromised suggest recollection if clinically indicated Performed By: #### R ES #### [facility] (DEFAULT) [address] [place] [address] Laboratory - Chemistry and C hemistry - challengeon 05-10-2025 Creatinine [Mass/Vol] 0.85 mg/dL 0.70 - 1.30 mg/dL [facility] CRP High sensitivity method [Mass/Vol] 37.48 mg/L High [facility] - 10.00 mg/L [facility] Laboratory - Drug toxicology on 05-10-2025 Vancomycin trough [Mass/Vol] 13.9 ug/mL [facility] Laboratory - Hematology and Cell countson 05-10-2025 Hematocrit (Bld) [Volume fraction] 34.5 % Low 39.6 - 48.8 % [facility] Hemoglobin (Bld) [Mass/Vol] 11.0 g/dL Low 13.4 - 16.8 g/dL [facility] Comment on above: Warmed to 37C ESR (Bld) [Velocity] 120 mm/h High [facility] No Panel Informationon 05-10 Interpretation and review of laboratory results Abnormal [facility] Interpretation and review of laboratory results Normal [facility] Interpretation and review of laboratory results Abnormal [facility] eGFR, CKD-EPI, Male 85 - PINF [facility] Comment on above: Reported eGFR is bas ed on the CKD-EPI 2020 equation using creatinine, age, and sex. Interpretation and review of laboratory results Abnormal [facility] Interpretation and review of laboratory results Normal [facility] SEDIMENTATION RATE, AUTOMATE Don 05-10-2025 ESR Westergren 120 mm/hr High <30 [facility] Comment on above: Performed By: #### V ANCTR #### [facility] (DEFAULT) [address] [place] [address] VANCOMYCIN LEVEL, TROUGH (AK E DRUG LEVEL)on 05-10-2025 Vancomycin, Trough 13.9 mcg/mL Normal Therapeut ic Range: 10.0-20.0 mcg/mL [facility] Comment on above: Order Comment: Pleas e draw level at specified interval PRIOR to next dose. Performed By: #### V ANCTR #### [facility] (DEFAULT) [address] [place] [address]178 CALCIUMon 05-09-2025 Calcium [Mass/Vol] 9.1 mg/dL Normal 8.6-10.5 [facility] Comment on above: Performed By: #### V ANCTR #### [facility] (DEFAULT) [address] [place] [address] 87528 CBC AND ELECTRONIC DIFFon Abs Baso Auto < Normal 0.00-0.09 [facility] Comment on above: Performed By: #### L [id number] #### [facility] (DEFAULT) [address] [place] [address] 03866 Abs Eos Auto < Normal 0.00-0.48 [facility] Comment on above: Performed By: #### L [id number] #### [facility] (DEFAULT) [address] [place] [address] 73937 Basophils/100 WBC (Bld) 0.2 % Normal [facility] Comment on above: Performed By: #### L [id number] #### [facility] (DEFAULT) [address] [place] [address]197 DIFF STATUS Electronic Differential Normal [facility] Comment on above: Performed By: #### L [id number] #### [facility] (DEFAULT) [address] [address] Eosinophils/100 WBC (Bld) 0.2 % Normal [facility] Comment on above: Performed By: #### L [id number] #### [facility] (DEFAULT) [address] [place] [address] 99044 Hematocrit (Bld) [Volume fraction] 33.0 % Low 39.6-48.8 [facility] Comment on above: Performed By: #### L [id number] #### [facility] (DEFAULT) [address] [place] [address] 31184 Hemoglobin (Bld) [Mass/Vol] 10.9 g/dL Low 13.4-16.8 [facility] Comment on above: Performed By: #### L [id number] #### [facility] (DEFAULT) [address] [address] Immature Grans % 1.4 % Normal [facility] Comment on above: Performed By: #### L [id number] #### [facility] (DEFAULT) [address] [address] Immature Grans Absolute 0.09 K/uL High <=0.07 [facility] Comment on above: Performed By: #### L [id number] #### [facility] (DEFAULT) [address] [address] Lymphocytes (Bld) [#/Vol] 0.65 10*3/uL Low 0.83-3.57 [facility] Comment on above: Performed By: #### L [id number] #### [facility] (DEFAULT) [address] [address] Lymphocytes/100 WBC (Bld) 10.1 % Normal [facility] Comment on above: Performed By: #### L [id number] #### [facility] (DEFAULT) [address] [address] MCV (RBC) [Entitic vol] 91.9 fL Normal 79.0-94.5 [facility] Comment on above: Performed By: #### L [id number] #### [facility] (DEFAULT) [address] [address] Mean Cell Hgb 30.4 pg Normal 26.1-33.3 [facility] Comment on above: Performed By: #### L [id number] #### [facility] (DEFAULT) [address] [address] Mean Cell Hgb Conc 33.0 g/dL Normal 31.9-36.5 [facility] Comment on above: Performed By: #### L [id number] #### [facility] (DEFAULT) [address] [address] Monocytes (Bld) [#/Vol] 0.71 10*3/uL Normal 0.24-0.93 [facility] Comment on above: Performed By: #### L [id number] #### [facility] (DEFAULT) [address] [place] [address] Monocytes/100 WBC (Bld) 11.1 % Normal [facility] Comment on above: Performed By: #### L [id number] #### [facility] (DEFAULT) [address] [place] [address]49 Nucleated RBC 0.0 /100 WBC Normal <=0.2 [facility] Comment on above: Performed By: #### L [id number] #### [facility] (DEFAULT) [address] [address] Platelet mean volume (Bld) [Entitic vol] 9.2 fL Normal 8.7-12.3 [facility] Comment on above: Performed By: #### L [id number] #### [facility] (DEFAULT) [address] [address] Platelets (Bld) [#/Vol] 232 10*3/uL Normal 146-337 [facility] Comment on above: Performed By: #### L [id number] #### [facility] (DEFAULT) [address] [address] RBC (Bld) [#/Vol] 3.59 10*6/uL Low 4.38-5.83 [facility] Comment on above: Performed By: #### L [id number] #### [facility] (DEFAULT) [address] [address] RBC Distribution 14.6 % High 10.9-14.[address] [facility] Comment on above: Performed By: #### L [id number] #### [facility] (DEFAULT) [address] [address] Segs + Bands Auto 77.0 % Normal [facility] Comment on above: Performed By: #### L [id number] #### [facility] (DEFAULT) [address] [place] [address] Segs + Bands,Absolute Auto 4.94 K/uL Normal 1.57-6.19 [facility] Comment on above: Performed By: #### L [id number] #### [facility] (DEFAULT) [address] [place] [address] WBC (Bld) [#/Vol] 6.41 10*3/uL Normal 3.73-10.10 [facility] Comment on above: Performed By: #### L [id number] #### [facility] (DEFAULT) [address] [place] [address] CHEM 7 (LYTES,BUN,CREA,GLUC) on 05-09-2025 Anion gap [Moles/Vol] 14 mmol/L Normal 7-17 [facility] Comment on above: Performed By: #### V ANCTR #### [facility] (DEFAULT) [address] [place] [address] Chloride [Moles/Vol] 107 mmol/L Normal 98-108 [facility] Comment on above: Performed By: #### V ANCTR #### [facility] (DEFAULT) [address] [place] [address] CO2 [Moles/Vol] 22 mmol/L Normal 21-31 [facility] Comment on above: Performed By: #### V ANCTR #### [facility] (DEFAULT) [address] [place] [address] Creatinine [Mass/Vol] 0.92 mg/dL Normal 0.70-1.30 [facility] Comment on above: Performed By: #### V ANCTR #### [facility] (DEFAULT) [address] [place] [address] GFR/1.73 sq M.predicted among non-blacks MDRD (S/P/Bld) [Vol rate/Area] 81 mL/min/{1.73_m2} Normal >=60 [facility] Comment on above: Result Comment: Repo rted eGFR is based on the CKD-EPI 2020 equation using creatinine, age, and sex. Performed By: #### V ANCTR #### [facility] (DEFAULT) [address] [place] [address] 91266 Glucose [Mass/Vol] 100 mg/dL Normal Nonfastin -179 mg/dL; Fastin-99 [facility] Comment on above: Performed By: #### V ANCTR #### [facility] (DEFAULT) [address] [place] [address]67 Osmolality [Osmolality] 296 mosm/kg Normal 278-305 [facility] Comment on above: Performed By: #### V ANCTR #### [facility] (DEFAULT) [address] [place] [address] Potassium [Moles/Vol] 4.2 mmol/L Normal 3.5-5.0 [facility] Comment on above: Performed By: #### V ANCTR #### [facility] (DEFAULT) [address] [place] [address] Sodium [Moles/Vol] 139 mmol/L Normal 135-145 [facility] Comment on above: Performed By: #### V ANCTR #### [facility] (DEFAULT) [address] [place] [address] 6[address] Urea nitrogen [Mass/Vol] 25 mg/dL Normal 7-25 [facility] Comment on above: Performed By: #### V ANCTR #### [facility] (DEFAULT) [address] [place] [address] 79839 Urea nitrogen/Creatinine [Mass ratio] 27 mg/mg Normal [facility] Comment on above: Performed By: #### V ANCTR #### [facility] (DEFAULT) [address] [place] [address] 82700 Chronic hepatitis differenti ation between hepatitis B and C virus panelOrdered By: Cheli Ruiz on 05-09-2025 HBV core IgG+IgM Ql (S) Negative Negative [facility] HBV surface Ab IA Ql (S) Negative Negative [facility] HBV surface Ag Ql (S) Negative Negative [facility] HCV Ab Ql (S) Negative Negative [facility] Interpretation and review of laboratory results Normal [facility] HEPATIC FUNCTION PANELon Albumin [Mass/Vol] 3.5 g/dL Normal 3.5-5.0 [facility] Comment on above: Performed By: #### C REAB #### [facility] (DEFAULT) [address] [place] [address]60 ALP [Catalytic activity/Vol] 79 U/L Normal 32-126 [facility] Comment on above: Performed By: #### C REAB #### [facility] (DEFAULT) [address] [place] [address] 22253 ALT [Catalytic activity/Vol] 180 U/L High 10-52 [facility] Comment on above: Performed By: #### C REAB #### [facility] (DEFAULT) [address] [place] [address]52 AST [Catalytic activity/Vol] 125 U/L High 10-39 [facility] Comment on above: Performed By: #### C REAB #### [facility] (DEFAULT) [address] [place] [address]6098 Bilirubin [Mass/Vol] 0.7 mg/dL Normal <1.5 [facility] Comment on above: Performed By: #### C REAB #### [facility] (DEFAULT) [address] [place] [address] Bilirubin.indirect [Mass/Vol] 0.1 mg/dL Normal <0.3 [facility] Comment on above: Result Comment: Spec imen hemolyzed. Direct bilirubin results may be falsely decreased. Interpret within the clinical context. Performed By: #### C REAB #### [facility] (DEFAULT) [address] [place] [address] Protein [Mass/Vol] 6.6 g/dL Normal 6.4-8.3 [facility] Comment on above: Performed By: #### C REAB #### [facility] (DEFAULT) [address] [place] [address]851 HEPATITIS BATTERY, CHRONICon 05-09-2025 Hep B Core Ab,Total (IgG+IgM) Negative Normal Negative [facility] Comment on above: Performed By: #### V ANCTR #### [facility] (DEFAULT) [address] [place] [address] Hep B Surface Ab Negative Normal Negative [facility] Comment on above: Performed By: #### V ANCTR #### [facility] (DEFAULT) [address] [address] Hepatitis B Surface Ag Negative Normal Negative [facility] Comment on above: Performed By: #### V ANCTR #### [facility] (DEFAULT) [address] [place] [address] Hepatitis C Antibody Negative Normal Negative [facility] Comment on above: Performed By: #### V ANCTR #### [facility] (DEFAULT) [address] [address] Laboratory - Chemistry and C hemistry - challengeon 05-09-2025 Albumin [Mass/Vol] 3.5 g/dL 3.5 - 5.0 g/dL [facility] ALP [Catalytic activity/Vol] 79 U/L 32 - 126 U/L [facility] ALT [Catalytic activity/Vol] 180 U/L High 10 - 52 U/L [facility] Anion gap [Moles/Vol] 14 mmol/L 7 - 17 mmol/L [facility] AST [Catalytic activity/Vol] 125 U/L High 10 - 39 U/L [facility] Bilirubin [Mass/Vol] 0.7 mg/dL NINF - 1.5 mg/dL [facility] Bilirubin.direct [Mass/Vol] 0.1 mg/dL NINF - 0.3 mg/dL [facility] Comment on above: Specimen hemolyzed. Direct bilirubin results may be falsely decreased. Interpret within the clinical context. Chloride [Moles/Vol] 107 mmol/L 98 - 10 8 mmol/L [facility] CO2 [Moles/Vol] 22 mmol/L 21 - 31 mmol/L [facility] Creatinine [Mass/Vol] 0.92 mg/dL 0.70 - 1.30 mg[facility] Glucose [Mass/Vol] 100 mg/dL 70 - 179 mg/dL [facility] Osmolality Calc [Osmolality] 296 [facility] Phosphate [Mass/Vol] 3.2 mg/dL 2.2 - 4 .6 mg/dL [facility] Potassium [Moles/Vol] 4.2 mmol/L 3.5 - 5.0 mmol/L [facility] Protein [Mass/Vol] 6.6 g/dL 6.4 - 8.3 g/dL [facility] Sodium [Moles/Vol] 139 mmol/L 135 - 145 mmol/L [facility] Urea nitrogen [Mass/Vol] 25 mg/dL 7 - 25 mg/dL [facility] Urea nitrogen/Creatinine [Mass ratio] 27 mg/mg [facility] Calcium [Mass/Vol] 9.1 mg/dL 8.6 - 10. 5 mg/dL [facility] Magnesium [Mass/Vol] 2.0 mg/dL 1.6 - 2 .6 mg/dL [facility] Laboratory - CoagulationOrde red By: Amy Watson on 05-09-2025 aPTT Coag (PPP) [Time] 23.6 s Low [facility] Comment on above: Specimen integrity c kai. INR Coag (Bld) [Relative time] 1.1 {INR} 0.9 - 1.1 [facility] PT Coag (PPP) [Time] 14.4 s High [facility] Laboratory - Hematology and Cell countson 05-09-2025 Basophils (Bld) [#/Vol] K/uL 0.00 - 0.09 K/uL [facility] Basophils/100 WBC (Bld) 0.2 % [facility] Differential cell count method Nom (Bld) Electronic Differential [facility] Eosinophils (Bld) [#/Vol] K/uL 0.00 - 0.48 K/uL [facility] Eosinophils/100 WBC (Bld) 0.2 % [facility] Erythrocyte distribution width (RBC) [Ratio] 14.6 % High 10.9 - 14.3 % [facility] Hematocrit (Bld) [Volume fraction] 33.0 % Low 39.6 - 48.8 % [facility] Hemoglobin (Bld) [Mass/Vol] 10.9 g/dL Low 13.4 - 16.8 g/dL [facility] Immature granulocytes (Bld) [#/Vol] 0.09 10*3/uL High NINF - 0.07 K/uL [facility] Immature granulocytes/100 WBC (Bld) 1.4 % [facility] Lymphocytes (Bld) [#/Vol] 0.65 10*3/uL Low 0.83 - 3.57 K/uL [facility] Lymphocytes/100 WBC (Bld) 10.1 % [facility] MCH (RBC) [Entitic mass] 30.4 pg 26.1 - 33.3 pg [facility] MCHC (RBC) [Mass/Vol] 33.0 g/dL 31.9 - 36.5 g/dL [facility] MCV (RBC) [Entitic vol] 91.9 fL 79.0 - 94.5 fL [facility] Monocytes (Bld) [#/Vol] 0.71 10*3/uL 0.24 - 0.93 K/uL [facility] Monocytes/100 WBC (Bld) 11.1 % [facility] Neutrophils (Bld) [#/Vol] 4.94 10*3/uL 1.57 - 6.19 K/uL [facility] Nucleated RBC/100 WBC (Bld) [Ratio] 0.0 % [facility] Platelet mean volume (Bld) [Entitic vol] 9.2 fL 8.7 - 12.3 fL [facility] Platelets (Bld) [#/Vol] 232 10*3/uL 146 - 337 K/uL [facility] RBC (Bld) [#/Vol] 3.59 10*6/uL Low [facility] Segmented neutrophils/100 WBC (Bld) 77.0 % [facility] WBC (Bld) [#/Vol] 6.41 10*3/uL 3.73 - 10. 10 K/uL [facility] MAGNESIUMon 05-09-2025 Magnesium [Mass/Vol] 2.0 mg/dL Normal 1.6-2.6 [facility] Comment on above: Performed By: #### V ANCTR #### [facility] (DEFAULT) [address] [place] [address] No Panel InformationOrdered By: Amy Watson on 05-09-2025 Interpretation and review of laboratory results Abnormal [facility] No Panel Informationon 05-09 eGFR, CKD-EPI, Male 81 - PINF [facility] Comment on above: Reported eGFR is bas ed on the CKD-EPI 2020 equation using creatinine, age, and sex. Interpretation and review of laboratory results Normal [facility] Interpretation and review of laboratory results Abnormal [facility] Interpretation and review of laboratory results Normal [facility] Interpretation and review of laboratory results Abnormal [facility] PHOSPHATE, INORGANICon 05-09 Phosphorous 3.2 mg/dL Normal 2.2-4.6 [facility] Comment on above: Performed By: #### C REAB #### [facility] (DEFAULT) [address] [place] [address] PT,INR,PTTon 05-09-2025 aPTT Coag (Bld) [Time] 23.6 s Low 24.0-34.3 [facility] Comment on above: Result Comment: Spec imen integrity checked. Performed By: #### P TPTT #### [facility] (DEFAULT) [address] [place] [address] INR Coag (PPP) [Relative time] 1.1 {INR} Normal 0.9-1.1 [facility] Comment on above: Performed By: #### P TPTT #### [facility] (DEFAULT) [address] [place] [address] PT Coag (PPP) [Time] 14.4 s High 11.9-14.2 [facility] Comment on above: Performed By: #### P TPTT #### [facility] (DEFAULT) [address] [place] [address] US ABDOMEN RUQ/LIVER/GBon US ABDOMEN RUQ/LIVER/GB EXAM: US ABDOMEN RUQ/LIVER/GB, 05/09/2025 07:21 AM CLINICAL INDICATIONS: transaminitis elevation COMPARISON: No prior studies available for comparison. TECHNIQUE: Real-time ultrasound evaluation of the right upper quadrant was performed utilizing a curved array transducer. Duplex scan is performed. Color flow images and spectral waveforms obtained. FINDINGS: Technically difficult study due to bowel gas and uncontrollable coughing. Pancreas: The visualized pancreas is sonographically normal in appearance. Liver: Hepatic steatosis. Surface contour is smooth. There is no evidence of an intrahepatic mass or biliary ductal dilation. Doppler ultrasound demonstrates hepatopetal flow in the main portal vein. Flow velocity is 28.4 cm/sec which is normal. Gall Bladder: The gallbladder is normally distended. Small stones near the fundus. Wall thickness is within normal limits. No pericholecystic fluid. The sonographic Cee's sign was reported as negative. The common duct is normal in caliber measuring 4 mm in diameter. Right Kidney: Limited evaluation of the right kidney demonstrates no hydronephrosis. Bipolar length is 10.4 cm. Benign cyst in the upper pole. Ascites: There is no ascites in the visualized abdomen. IMPRESSION: 1. Hepatic steatosis. 2. Gallstones without cholecystitis. Normal [facility] US Abdomen RUQon 05-09-2025 IMPRESSION: 1. Hepatic steatosis. 2. Gallstones without cholecystitis. OLOGY EXAM: US ABDOMEN RUQ/LIVER/GB, 05/09/2025 07:21 AM CLINICAL INDICATIONS: transaminitis elevation COMPARISON: No prior studies available for comparison. TECHNIQUE: Real-time ultrasound evaluation of the right upper quadrant was performed utilizing a curved array transducer. Duplex scan is performed. Color flow images and spectral waveforms obtained. FINDINGS: Technically difficult study due to bowel gas and uncontrollable coughing. Pancreas: The visualized pancreas is sonographically normal in appearance. Liver: Hepatic steatosis. Surface contour is smooth. There is no evidence of an intrahepatic mass or biliary ductal dilation. Doppler ultrasound demonstrates hepatopetal flow in the main portal vein. Flow velocity is 28.4 cm/sec which is normal. Gall Bladder: The gallbladder is normally distended. Small stones near the fundus. Wall thickness is within normal limits. No pericholecystic fluid. The sonographic Cee's sign was reported as negative. The common duct is normal in caliber measuring 4 mm in diameter. Right Kidney: Limited evaluation of the right kidney demonstrates no hydronephrosis. Bipolar length is 10.4 cm. Benign cyst in the upper pole. Ascites: There is no ascites in the visualized abdomen. RADIOLOGY Kayla Escobedo MD - 05/09/2025 EXAM: US ABDOMEN RUQ/LIVER/GB, 05/09/2025 07:21 AM CLINICAL INDICATIONS: transaminitis elevation COMPARISON: No prior studies available for comparison. TECHNIQUE: Real-time ultrasound evaluation of the right upper quadrant was performed utilizing a curved array transducer. Duplex scan is performed. Color flow images and spectral waveforms obtained. FINDINGS: Technically difficult study due to bowel gas and uncontrollable coughing. Pancreas: The visualized pancreas is sonographically normal in appearance. Liver: Hepatic steatosis. Surface contour is smooth. There is no evidence of an intrahepatic mass or biliary ductal dilation. Doppler ultrasound demonstrates hepatopetal flow in the main portal vein. Flow velocity is 28.4 cm/sec which is normal. Gall Bladder: The gallbladder is normally distended. Small stones near the fundus. Wall thickness is within normal limits. No pericholecystic fluid. The sonographic Cee's sign was reported as negative. The common duct is normal in caliber measuring 4 mm in diameter. Right Kidney: Limited evaluation of the right kidney demonstrates no hydronephrosis. Bipolar length is 10.4 cm. Benign cyst in the upper pole. Ascites: There is no ascites in the visualized abdomen. IMPRESSION IMPRESSION: 1. Hepatic steatosis. 2. Gallstones without cholecystitis. [facility] Radiology Study observation (narrative) [facility] US Abdomen RUQOrdered By: Demetra Escobedo on 05-09-2025 [facility] Work Phone: Basic Metabolic Panelon 04-28 Anion gap [Moles/Vol] 10.8 mmol/L Normal 6.0-15.0 [facility] Comment on above: Performed By: #### A ERC, GS #### [facility] [address] [place] [address] [place] Calcium [Mass/Vol] 9.0 mg/dL Normal 8.6-10.3 [facility] Comment on above: Performed By: #### A ERC, GS #### [facility] [address] [place] [address] [place] Chloride [Moles/Vol] 106 mmol/L Normal 98-107 [facility] Comment on above: Performed By: #### A ERC, GS #### [facility] [address] [place] [address] [place] CO2 [Moles/Vol] 23.9 mmol/L Normal 21.0-31.0 [facility] Comment on above: Performed By: #### A ERC, GS #### [facility] [address] [place] [address] [place] Creatinine [Mass/Vol] 1.01 mg/dL Normal 0.70-1.30 [facility] Comment on above: Performed By: #### A ERC, GS #### [facility] [address] [place] [address] [place] Creatinine Clr Calc Pharmacy 69.59 Normal [facility] Comment on above: Result Comment: PERF ORMED BY: [place] [address] PATHOLOGIST ARCHITECTURE ANALYST MAXIM HERNANDEZ M.D. Performed By: #### A REGINALDO, GS #### [address] GFR/1.73 sq M.predicted MDRD (S/P/Bld) [Vol rate/Area] mL/min/{1.73_m2} Normal [facility] Comment on above: Performed By: #### A REGINALDO, GS #### [address] Glucose [Mass/Vol] 135 mg/dL High 70-100 [facility] Comment on above: Result Comment: [facility] Glucose Reference Range is dependent on time and content of last meal. Glucose of more than 200 mg/dL in a nonstressed, ambulatory subject supports the diagnosis of Diabetes Mellitus. ADA recommended reference range Performed By: #### A REGINALDO, GS #### [address] Potassium [Moles/Vol] 3.7 mmol/L Normal 3.5-5.1 [facility] Comment on above: Performed By: #### A REGINALDO, GS #### [address] Sodium [Moles/Vol] 137 mmol/L Normal 136-145 [facility] Comment on above: Performed By: #### A REGINALDO, GS #### [address] Urea nitrogen [Mass/Vol] 27 mg/dL High 7-25 [facility] Comment on above: Performed By: #### Deanna HAIR, GS #### [address] [place] 05-08-2025 L --- Specimen: [id number] Received: 05/08/25 Status: ALTON Antonio Num: [id number] Spec Type: Impression Subm Dr: Ben Reddy DO Tissues: PATHPER Procedures: PATHREVIEW Age/ Patient Sex Location Account Attending Physician Tristin Powell /[facility] [id number] Ben Reddy DO SPEC NUM: [id number] RECD: 05/08/25 STATUS: ALTON ANTONIO NUM: [id number] ANNA: 05/08/25- DR: Ben Reddy DO ENTERED: 05/08/25 LORRIE BEST: SPEC TYPE: Impression DEPT: [place] ORDERED: PATHREVIEW ORDERED: PATHREVIEW Pathologist Review PERIPHERAL SMEAR REVIEW Review of the smear confirms the CBC results RBCs: Mildly reduced in number, moderate anisopoikilocytosis, rare schistocytes noted, nucleated cells noted WBCs: Reduced in number with absolute lymphopenia Platelets: Normal in number and morphology CPT: 91467 Specimen: [id number] Received: 05/08/25 Status: ALTON Alvarez Num: [id number] Spec Type: Impression Subm Dr: Ben Reddy DO Tissues: PATHPER Procedures: PATHREVIEW Patient: Tristin Powell [id number] (Continued) Signed (signature on file) Daniel Quezada Jr., MD 05/08/25 1010 Normal [facility] Partial Thromboplastin Timeo n 05-08-2025 aPTT Coag (Bld) [Time] 19.8 s Low 25.1-36.5 [facility] Comment on above: Result Comment: A he matocrit value greater than 55% may lead to inaccurate results in coagulation testing. Patients having hematocrit values >55% require a special collection tube for coagulation studies. Please contact the laboratory at [phone] for redraw instructions. PERFORMED BY: [place] [address] PATHOLOGIST ARCHITECTURE ANALYST MAXIM HERNANDEZ M.D. Performed By: #### P TT, PT ####[address] Pathologist Slide Reviewon 0 05-08-2025 Pathologist Slide Review Ordered Path Review Normal [facility] Comment on above: Result Comment: PERF ORMED BY: [place] [id number] PATHOLOGIST ARCHITECTURE ANALYST MAXIM HERNANDEZ M.D. Performed By: #### A ERC, GS #### [address] Prothrombin Time INRon 05-08 INR Coag (PPP) [Relative time] 1.1 {INR} Normal [facility] Comment on above: Result Comment: INR Therapeutic Range A) Pre- and Peroperative OAT started two weeks before surgery. NOT HIP SURGERY: 1.5 - 2.5 HIP SURGERY: 2 - 3 B) Primary and secondary prevention of venous THROMBOSIS: 2 - 3 C) Active venous thrombosis, pulmonary embolism and prevention of recurrent venous thrombosis: 2 - 3 D) Prevention of arterial thromboembolism including patients with mechanical heart valves: 3 - 4.5 Performed By: #### P TT, PT ####[address] PT Coag (PPP) [Time] 13.0 s High 9.0-12.9 [facility] Comment on above: Result Comment: A he matocrit value greater than 55% may lead to inaccurate results in coagulation testing. Patients having hematocrit values >55% require a special collection tube for coagulation studies. Please contact the laboratory at [phone] for redraw instructions. Performed By: #### P TT, PT ####[facility] Scan and CBCon 05-08-2025 Anisocytosis Ql (Bld) Slight Normal [facility] Comment on above: Performed By: #### A ERC, GS #### [address] Basophils (Bld) [#/Vol] 0.0 10*3/uL Normal 0.0-0.2 [facility] Comment on above: Performed By: #### A ERC, GS #### [address] Basophils/100 WBC (Bld) 0.2 % Normal . [facility] Comment on above: Performed By: #### A ERC, GS #### [address] Crenated RBC Moderate Normal [facility] Comment on above: Performed By: #### A ERC, GS #### [address] Eosinophils (Bld) [#/Vol] 0.1 10*3/uL Normal 0.0-0.45 [facility] Comment on above: Performed By: #### A ERC, GS #### [address] Eosinophils/100 WBC (Bld) 1.9 % Normal . [facility] Comment on above: Performed By: #### A ERC, GS #### [address] Erythrocyte distribution width (RBC) [Ratio] 15.5 % High 12.0-14.8 [facility] Comment on above: Performed By: #### A ERC, GS #### [address] Hematocrit (Bld) [Volume fraction] 30.1 % Low 38.8-50.0 [facility] Comment on above: Performed By: #### A ERC, GS #### [facility] [address] Hemoglobin (Bld) [Mass/Vol] 10.9 g/dL Low 13.0-17.0 [facility] Comment on above: Performed By: #### A ERC, GS #### [facility] [address] Lymphocytes (Bld) [#/Vol] 0.4 10*3/uL Low 1.00-4.8 [facility] Comment on above: Performed By: #### A ERC, GS #### [facility] [address] Lymphocytes/100 WBC (Bld) 11.1 % Normal . [facility] Comment on above: Performed By: #### A ERC, GS #### [address] MCH (RBC) [Entitic mass] 33.9 pg Normal 27.5-35.2 [facility] Comment on above: Performed By: #### A ERC, GS #### [address] MCV (RBC) [Entitic vol] 94.1 fL Normal 83.5-101 [facility] Comment on above: Performed By: #### A ERC, GS #### [address] Mean Corpuscular HGB Conc 36.0 g/dL High 32.5-35.6 [facility] Comment on above: Performed By: #### A ERC, GS #### [facility] [address] Monocytes (Bld) [#/Vol] 0.5 10*3/uL Normal 0.0-0.8 [facility] Comment on above: Performed By: #### A ERC, GS #### [address] Monocytes/100 WBC (Bld) 14.5 % Normal . [facility] Comment on above: Performed By: #### A ERC, GS #### [address] Neutrophils (Bld) [#/Vol] 2.7 10*3/uL Normal 1.8-7.7 [facility] Comment on above: Performed By: #### A ERC, GS #### [address] Neutrophils/100 WBC (Bld) 72.3 % Normal . [facility] Comment on above: Performed By: #### A ERC, GS #### [address] NRBC% 0.9 /100{WBC} High 0-0.5 [facility] Comment on above: Performed By: #### A REGINALDO, GS #### [address] Ovalocytes Moderate Normal [facility] Comment on above: Performed By: #### A REGINALDO, GS #### [address] Platelet Estimate Normal Normal Normal [facility] Comment on above: Performed By: #### A REGINALDO, GS #### [address] Platelet mean volume (Bld) [Entitic vol] 7.2 fL Normal 6.6-10.1 [facility] Comment on above: Performed By: #### A REGINALDO, GS #### [address] Platelet Morphology Normal Normal Normal [facility] Comment on above: Result Comment: PERF ORMED BY: [place] [address] PATHOLOGIST ARCHITECTURE ANALYST MAXIM HERNANDEZ M.D. Performed By: #### A REGINALDO, GS #### [place] [address] [place] Platelets (Bld) [#/Vol] 231 10*3/uL Normal 150-450 [facility] Comment on above: Performed By: #### A REGINALDO, GS #### [address] Poikilocytosis Moderate Normal [facility] Comment on above: Performed By: #### A ERC, GS #### [address] RBC (Bld) [#/Vol] 3.20 10*6/uL Low 3.90-5.60 [facility] Comment on above: Performed By: #### A ERC, GS #### [address] WBC (Bld) [#/Vol] 3.7 10*3/uL Low 4.1-10.5 [facility] Comment on above: Performed By: #### A ERC, GS #### [address] White Blood Count 3.7 [CFU]/mL Low 4.1-10.5 [facility] Comment on above: Performed By: #### A ERC, GS #### [address] Basic Metabolic Panelon 09-1 0-2024 Anion gap [Moles/Vol] 13.0 mmol/L Normal 6.0-15.0 [facility] Comment on above: Performed By: #### B MP, CBC #### [address] Calcium [Mass/Vol] 8.7 mg/dL Normal 8.6-10.3 [facility] Comment on above: Performed By: #### B MP, CBC #### [place] [address] [place] Chloride [Moles/Vol] 105 mmol/L Normal 98-107 [facility] Comment on above: Performed By: #### B MP, CBC #### [address] CO2 [Moles/Vol] 22.6 mmol/L Normal 21.0-31.0 [facility] Comment on above: Performed By: #### B MP, CBC #### [address] Creatinine [Mass/Vol] 0.97 mg/dL Normal 0.70-1.30 [facility] Comment on above: Performed By: #### B MP, CBC #### [place] [address] [place] Creatinine Clr Calc Pharmacy 72.15 Normal [facility] Comment on above: Result Comment: PERF ORMED BY: [place] [address] PATHOLOGIST ARCHITECTURE ANALYST MAXIM HERNANDEZ M.D. Performed By: #### B MP, CBC #### [place] [address] [place] GFR/1.73 sq M.predicted MDRD (S/P/Bld) [Vol rate/Area] mL/min/{1.73_m2} Normal [facility] Comment on above: Performed By: #### B MP, CBC #### [address] Glucose [Mass/Vol] 109 mg/dL High 70-100 [facility] Comment on above: Result Comment: [place] Glucose Reference Range is dependent on time and content of last meal. Glucose of more than 200 mg/dL in a nonstressed, ambulatory subject supports the diagnosis of Diabetes Mellitus. ADA recommended reference range Performed By: #### B MP, CBC #### [place] [address] [place] Potassium [Moles/Vol] 3.6 mmol/L Normal 3.5-5.1 [facility] Comment on above: Performed By: #### B MP, CBC #### [place] [address] [place] Sodium [Moles/Vol] 137 mmol/L Normal 136-145 [facility] Comment on above: Performed By: #### B MP, CBC #### [place] [address] [place] Urea nitrogen [Mass/Vol] 30 mg/dL High 7-25 [facility] Comment on above: Performed By: #### B MP, CBC #### [address] Complete Blood Count Auto Di ffon 05-07-2025 Basophils (Bld) [#/Vol] 0.0 10*3/uL Normal 0.0-0.2 [facility] Comment on above: Result Comment: PERF ORMED BY: [place] [address] PATHOLOGIST ARCHITECTURE ANALYST MAXIM HERNANDEZ M.D. Performed By: #### B MP, CBC #### [address] Basophils/100 WBC (Bld) 0.2 % Normal . [facility] Comment on above: Performed By: #### B MP, CBC #### [address] Eosinophils (Bld) [#/Vol] 0.0 10*3/uL Normal 0.0-0.45 [facility] Comment on above: Performed By: #### B MP, CBC #### [address] Eosinophils/100 WBC (Bld) 0.1 % Normal . [facility] Comment on above: Performed By: #### B MP, CBC #### [address] Erythrocyte distribution width (RBC) [Ratio] 15.4 % High 12.0-14.8 [facility] Comment on above: Performed By: #### B MP, CBC #### [address] Hematocrit (Bld) [Volume fraction] 32.2 % Low 38.8-50.0 [facility] Comment on above: Performed By: #### B MP, CBC #### [address] Hemoglobin (Bld) [Mass/Vol] 11.3 g/dL Low 13.0-17.0 [facility] Comment on above: Performed By: #### B MP, CBC #### [address] Lymphocytes (Bld) [#/Vol] 0.4 10*3/uL Low 1.00-4.8 [facility] Comment on above: Performed By: #### B MP, CBC #### [address] Lymphocytes/100 WBC (Bld) 10.3 % Normal . [facility] Comment on above: Performed By: #### B MP, CBC #### [address] MCH (RBC) [Entitic mass] 33.0 pg Normal 27.5-35.2 [facility] Comment on above: Performed By: #### B MP, CBC #### [address] MCV (RBC) [Entitic vol] 93.6 fL Normal 83.5-101 [facility] Comment on above: Performed By: #### B MP, CBC #### [address] Mean Corpuscular HGB Conc 35.2 g/dL Normal 32.5-35.6 [facility] Comment on above: Performed By: #### B MP, CBC #### [address] Monocytes (Bld) [#/Vol] 0.5 10*3/uL Normal 0.0-0.8 [facility] Comment on above: Performed By: #### B MP, CBC #### [place] [address] [place] Monocytes/100 WBC (Bld) 12.5 % Normal . [facility] Comment on above: Performed By: #### B MP, CBC #### [address] Neutrophils (Bld) [#/Vol] 2.9 10*3/uL Normal 1.8-7.7 [facility] Comment on above: Performed By: #### B MP, CBC #### [address] Neutrophils/100 WBC (Bld) 76.9 % Normal . [facility] Comment on above: Performed By: #### B MP, CBC #### [address] NRBC% 0.2 /100{WBC} Normal 0-0.5 [facility] Comment on above: Performed By: #### B MP, CBC #### [address] Platelet mean volume (Bld) [Entitic vol] 7.3 fL Normal 6.6-10.1 [facility] Comment on above: Performed By: #### B MP, CBC #### [place] [address] [place] Platelets (Bld) [#/Vol] 268 10*3/uL Normal 150-450 [facility] Comment on above: Performed By: #### B MP, CBC #### [place] [address] [place] RBC (Bld) [#/Vol] 3.44 10*6/uL Low 3.90-5.60 [facility] Comment on above: Performed By: #### B MP, CBC #### [place] [address] [place] WBC (Bld) [#/Vol] 3.7 10*3/uL Low 4.1-10.5 [facility] Comment on above: Performed By: #### B MP, CBC #### [address] White Blood Count 3.7 [CFU]/mL Low 4.1-10.5 [facility] Comment on above: Performed By: #### B MP, CBC #### [place] [address] [place] Partial Thromboplastin Timeo n 05-07-2025 aPTT Coag (Bld) [Time] 24.4 s Low 25.1-36.5 [facility] Comment on above: Result Comment: A he matocrit value greater than 55% may lead to inaccurate results in coagulation testing. Patients having hematocrit values >55% require a special collection tube for coagulation studies. Please contact the laboratory at [phone] for redraw instructions. PERFORMED BY: [place] [address] PATHOLOGIST ARCHITECTURE ANALYST MAXIM HERNANDEZ M.D. Performed By: #### C BC #### [place] [id number] [facility] Prothrombin Time INRon 05-07 INR Coag (PPP) [Relative time] 1.2 {INR} Normal [facility] Comment on above: Result Comment: INR Therapeutic Range A) Pre- and Peroperative OAT started two weeks before surgery. NOT HIP SURGERY: 1.5 - 2.5 HIP SURGERY: 2 - 3 B) Primary and secondary prevention of venous THROMBOSIS: 2 - 3 C) Active venous thrombosis, pulmonary embolism and prevention of recurrent venous thrombosis: 2 - 3 D) Prevention of arterial thromboembolism including patients with mechanical heart valves: 3 - 4.5 Performed By: #### C BC #### [address] PT Coag (PPP) [Time] 13.5 s High 9.0-12.9 [facility] Comment on above: Result Comment: A he matocrit value greater than 55% may lead to inaccurate results in coagulation testing. Patients having hematocrit values >55% require a special collection tube for coagulation studies. Please contact the laboratory at [phone] for redraw instructions. Performed By: #### C BC #### [place] [id number] [place] XR chest 1V portableon 05-07 XR chest 1V portable [facility] [place] [address] [place], [place] [id number] XRay Report Signed Patient: Tristin Powell MR#: [id number] : 1940 Acct:[id number] Age/Sex: 85 / M ADM Date: 05/04/25 Loc: Room: 4V8497-3 Type: ADM IN Attending Dr: Ben Reddy DO Copies to: DO Yudelka Garza MD Ordering Provider: Yudelka Martines MD Date of Service: 05/07/25 XR/XR chest 1V portable: hemoptysis pneumonia SINGLE VIEW CHEST CLINICAL HISTORY: Hemoptysis, pneumonia. COMPARISON: Chest 05/04/2025 FINDINGS: Sternotomy wires are noted. Heart appears normal in size. Improved aeration of the lung bases when compared to the prior study. No pneumothorax or free air. XR/XR chest 1V portable IMPRESSION: IMPROVED AERATION OF THE LUNG BASES WHEN COMPARED TO THE PRIOR STUDY. RESIDUAL LEFT LOWER LOBE AIRSPACE DISEASE PERSISTS. Impression dictated by: Nabor Solitario Jr., D.ONeftali 05/07/2025 10:05 AM Dictation Location: [place] [address] Transcribed By: [facility] 05/07/25 1005 Dictated By: Nabor Solitario Jr, DO 05/07/25 1004 Signed By: 05/07/25 1005 Normal [facility] Basic Metabolic Panelon Anion gap [Moles/Vol] 10.9 mmol/L Normal 6.0-15.0 [facility] Comment on above: Performed By: #### B MAI, CBC #### [address] Calcium [Mass/Vol] 8.5 mg/dL Low 8.6-10.3 [facility] Comment on above: Performed By: #### B MP, CBC #### [place] [address] [place] Chloride [Moles/Vol] 102 mmol/L Normal 98-107 [facility] Comment on above: Performed By: #### B MP, CBC #### [facility] [address] [place] [id number] [place] CO2 [Moles/Vol] 23.6 mmol/L Normal 21.0-31.0 [facility] Comment on above: Performed By: #### B MP, CBC #### [place] [id number] [place] Creatinine [Mass/Vol] 1.14 mg/dL Normal 0.70-1.30 [facility] Comment on above: Performed By: #### B MP, CBC #### [place] [address] [place] Creatinine Clr Calc Pharmacy 60.53 Normal [facility] Comment on above: Result Comment: PERF ORMED BY: [place] [address] PATHOLOGIST ARCHITECTURE ANALYST MAXIM HERNANDEZ M.D. Performed By: #### B MP, CBC #### [place] [address] [place] GFR/1.73 sq M.predicted MDRD (S/P/Bld) [Vol rate/Area] mL/min/{1.73_m2} Normal [facility] Comment on above: Performed By: #### B MP, CBC #### [address] Glucose [Mass/Vol] 115 mg/dL High 70-100 [facility] Comment on above: Result Comment: [place] Glucose Reference Range is dependent on time and content of last meal. Glucose of more than 200 mg/dL in a nonstressed, ambulatory subject supports the diagnosis of Diabetes Mellitus. ADA recommended reference range Performed By: #### B MP, CBC #### [address] Potassium [Moles/Vol] 3.5 mmol/L Normal 3.5-5.1 [facility] Comment on above: Performed By: #### B MP, CBC #### [place] [address] [place] Sodium [Moles/Vol] 133 mmol/L Low 136-145 [facility] Comment on above: Performed By: #### B MP, CBC #### [address] Urea nitrogen [Mass/Vol] 35 mg/dL High 7-25 [facility] Comment on above: Performed By: #### B MP, CBC #### [address] [place] [address] [facility] CT chest wo conon 05-06-2025 CT chest wo con [facility] [place] [address] [place] [id number] [address] Scan Report Signed Patient: Tristin Powell MR#: [id number] : 1940 Acct:[id number] Age/Sex: 85 / M ADM Date: 05/04/25 Loc: Room: [address] [place] [address] Type: ADM IN Attending Dr: Ben Reddy DO Copies to: DO Yudelka Garza MD Ordering Provider: Yudelka Martines MD Date of Service: 05/06/25 CT/CT chest wo con: hemoptysis CT CHEST WITHOUT IV CONTRAST: CLINICAL HISTORY: Hemoptysis, persistent productive cough. Abnormal CT COMPARISON: CT chest 05/04/2025 TECHNIQUE: Spiral images were obtained through the chest without IV contrast. This CT exam was performed using one or more following dose reduction techniques: Automated exposure control, adjustment of the mA and/or kV according to patient size, or use of iterative reconstruction technique. FINDINGS: Mediastinum:Thoracic ribs is moderate calcification without aneurysm. Pulmonary trunk appears nondilated. No pleural effusion. No lymphadenopathy. The esophagus is grossly unremarkable. Lungs:Emphysematous changes. Calcified granulomas. Bibasilar consolidations similar to the prior study. Potential infected left lower lobe bulla is once again noted. No pneumothorax. No pleural effusion. Abd:Small hiatal hernia. No acute process. Liver granulomas. Soft tissues/Bones: Soft tissues appear no acute process. Osseous structures demonstrate degenerative change. CT/CT chest wo con IMPRESSION: Overall, no significant change in lung findings compared to the prior study from 05/04/2025. Bibasilar consolidations with potential infected bulla involving the left lower lobe persists. Impression dictated by: Nabor Solitario Jr., D.O. 05/06/2025 12:36 PM Dictation Location: [place] [address] Transcribed By: [facility] 05/06/25 1236 Dictated By: Nabor Solitario Jr, DO 05/06/25 1230 Signed By: 05/06/25 1236 Normal [facility] Coagulation Profileon 2024 aPTT Coag (Bld) [Time] 27.8 s Normal 25.1-36.5 [facility] Comment on above: Order Comment: PER N GAYATRI PRACTITIONER ANN- WANTS TO WAIT UNTIL 1400, HE HAS A CBC AT 1400. Result Comment: A he matocrit value greater than 55% may lead to inaccurate results in coagulation testing. Patients having hematocrit values >55% require a special collection tube for coagulation studies. Please contact the laboratory at [phone] for redraw instructions. PERFORMED BY: [place] [address] PATHOLOGIST ARCHITECTURE ANALYST MAXIM HERNANDEZ M.D. Performed By: #### B MP, CBC #### [place] [id number] [facility] INR Coag (PPP) [Relative time] 1.4 {INR} Normal [facility] Comment on above: Order Comment: PER N CECELIAE PRACTITIONER ANN- WANTS TO WAIT UNTIL 1400, HE HAS A CBC AT 1400. Result Comment: INR Therapeutic Range A) Pre- and Peroperative OAT started two weeks before surgery. NOT HIP SURGERY: 1.5 - 2.5 HIP SURGERY: 2 - 3 B) Primary and secondary prevention of venous THROMBOSIS: 2 - 3 C) Active venous thrombosis, pulmonary embolism and prevention of recurrent venous thrombosis: 2 - 3 D) Prevention of arterial thromboembolism including patients with mechanical heart valves: 3 - 4.5 Performed By: #### B MP, CBC #### [place] [id number] [place] PT Coag (PPP) [Time] 15.9 s High 9.0-12.9 [facility] Comment on above: Order Comment: PER N CECELIAE PRACTITIONER ANN- WANTS TO WAIT UNTIL 1400, HE HAS A CBC AT 1400. Result Comment: A he matocrit value greater than 55% may lead to inaccurate results in coagulation testing. Patients having hematocrit values >55% require a special collection tube for coagulation studies. Please contact the laboratory at [phone] for redraw instructions. Performed By: #### B MP, CBC #### [address] [place] [address] [place] Complete Blood Count Auto Di ffon 05-06-2025 Basophils (Bld) [#/Vol] 0.0 10*3/uL Normal 0.0-0.2 [facility] Comment on above: Result Comment: PERF ORMED BY: [place] [address] PATHOLOGIST ARCHITECTURE ANALYST MAXIM HERNANDEZ M.D. Performed By: #### C BC #### [address] Basophils/100 WBC (Bld) 0.1 % Normal . [facility] Comment on above: Performed By: #### C BC #### [address] Eosinophils (Bld) [#/Vol] 0.0 10*3/uL Normal 0.0-0.45 [facility] Comment on above: Performed By: #### C BC #### [address] Eosinophils/100 WBC (Bld) 0.1 % Normal . [facility] Comment on above: Performed By: #### C BC #### [address] Erythrocyte distribution width (RBC) [Ratio] 15.2 % High 12.0-14.8 [facility] Comment on above: Performed By: #### C BC #### [address] Hematocrit (Bld) [Volume fraction] 32.8 % Low 38.8-50.0 [facility] Comment on above: Performed By: #### C BC #### [address] Hemoglobin (Bld) [Mass/Vol] 11.7 g/dL Low 13.0-17.0 [facility] Comment on above: Performed By: #### C BC #### [address] Lymphocytes (Bld) [#/Vol] 0.2 10*3/uL Low 1.00-4.8 [facility] Comment on above: Performed By: #### C BC #### [address] Lymphocytes/100 WBC (Bld) 6.5 % Normal . [facility] Comment on above: Performed By: #### C BC #### [address] MCH (RBC) [Entitic mass] 32.6 pg Normal 27.5-35.2 [facility] Comment on above: Performed By: #### C BC #### [address] MCV (RBC) [Entitic vol] 91.6 fL Normal 83.5-101 [facility] Comment on above: Performed By: #### C BC #### [address] Mean Corpuscular HGB Conc 35.6 g/dL Normal 32.5-35.6 [facility] Comment on above: Performed By: #### C BC #### [place] [address] [place] Monocytes (Bld) [#/Vol] 0.3 10*3/uL Normal 0.0-0.8 [facility] Comment on above: Performed By: #### C BC #### [address] Monocytes/100 WBC (Bld) 10.4 % Normal . [facility] Comment on above: Performed By: #### C BC #### [address] Neutrophils (Bld) [#/Vol] 2.1 10*3/uL Normal 1.8-7.7 [facility] Comment on above: Performed By: #### C BC #### [address] Neutrophils/100 WBC (Bld) 82.9 % Normal . [facility] Comment on above: Performed By: #### C BC #### [address] NRBC% 0.2 /100{WBC} Normal 0-0.5 [facility] Comment on above: Performed By: #### C BC #### [address] Platelet mean volume (Bld) [Entitic vol] 7.3 fL Normal 6.6-10.1 [facility] Comment on above: Performed By: #### C BC #### [address] Platelets (Bld) [#/Vol] 222 10*3/uL Normal 150-450 [facility] Comment on above: Performed By: #### C BC #### [place] [address] [place] RBC (Bld) [#/Vol] 3.59 10*6/uL Low 3.90-5.60 [facility] Comment on above: Performed By: #### C BC #### [address] WBC (Bld) [#/Vol] 2.5 10*3/uL Low 4.1-10.5 [facility] Comment on above: Performed By: #### C BC #### [address] White Blood Count 2.5 [CFU]/mL Low 4.1-10.5 [facility] Comment on above: Performed By: #### C BC #### [place] [address] [place] Basophils (Bld) [#/Vol] 0.0 10*3/uL Normal 0.0-0.2 [facility] Comment on above: Result Comment: PERF ORMED BY: [place] [address] PATHOLOGIST ARCHITECTURE ANALYST MAXIM HERNANDEZ M.D. Performed By: #### B MP, CBC #### [place] [address] [place] Basophils/100 WBC (Bld) 0.1 % Normal . [facility] Comment on above: Performed By: #### B MP, CBC #### [address] Eosinophils (Bld) [#/Vol] 0.0 10*3/uL Normal 0.0-0.45 [facility] Comment on above: Performed By: #### B MP, CBC #### [address] Eosinophils/100 WBC (Bld) 0.2 % Normal . [facility] Comment on above: Performed By: #### B MP, CBC #### [address] Erythrocyte distribution width (RBC) [Ratio] 15.3 % High 12.0-14.8 [facility] Comment on above: Performed By: #### B MP, CBC #### [address] Hematocrit (Bld) [Volume fraction] 29.9 % Low 38.8-50.0 [facility] Comment on above: Performed By: #### B MP, CBC #### [address] Hemoglobin (Bld) [Mass/Vol] 10.7 g/dL Low 13.0-17.0 [facility] Comment on above: Performed By: #### B MP, CBC #### [address] Lymphocytes (Bld) [#/Vol] 0.3 10*3/uL Low 1.00-4.8 [facility] Comment on above: Performed By: #### B MP, CBC #### [address] Lymphocytes/100 WBC (Bld) 13.1 % Normal . [facility] Comment on above: Performed By: #### B MP, CBC #### [address] MCH (RBC) [Entitic mass] 33.1 pg Normal 27.5-35.2 [facility] Comment on above: Performed By: #### B MP, CBC #### [address] MCV (RBC) [Entitic vol] 92.7 fL Normal 83.5-101 [facility] Comment on above: Performed By: #### B MP, CBC #### [address] Mean Corpuscular HGB Conc 35.7 g/dL High 32.5-35.6 [facility] Comment on above: Performed By: #### B MP, CBC #### [address] Monocytes (Bld) [#/Vol] 0.5 10*3/uL Normal 0.0-0.8 [facility] Comment on above: Performed By: #### B MP, CBC #### [address] Monocytes/100 WBC (Bld) 17.7 % Normal . [facility] Comment on above: Performed By: #### B MP, CBC #### [address] Neutrophils (Bld) [#/Vol] 1.8 10*3/uL Normal 1.8-7.7 [facility] Comment on above: Performed By: #### B MP, CBC #### [address] Neutrophils/100 WBC (Bld) 68.9 % Normal . [facility] Comment on above: Performed By: #### B MP, CBC #### [place] [address] [place] NRBC% 0.1 /100{WBC} Normal 0-0.5 [facility] Comment on above: Performed By: #### B MP, CBC #### [address] Platelet mean volume (Bld) [Entitic vol] 7.3 fL Normal 6.6-10.1 [facility] Comment on above: Performed By: #### B MP, CBC #### [facility] [address] Platelets (Bld) [#/Vol] 200 10*3/uL Normal 150-450 [facility] Comment on above: Performed By: #### B MP, CBC #### [facility] [address] RBC (Bld) [#/Vol] 3.23 10*6/uL Low 3.90-5.60 [facility] Comment on above: Performed By: #### B MP, CBC #### [facility] [address] WBC (Bld) [#/Vol] 2.7 10*3/uL Low 4.1-10.5 [facility] Comment on above: Performed By: #### B MP, CBC #### [facility] [address] White Blood Count 2.7 [CFU]/mL Low 4.1-10.5 [facility] Comment on above: Performed By: #### B MP, CBC #### [address] Legionella Pneumophilia Ag, Uron 05-06-2025 Legionella Pneumophilia Ag, Ur Negative Normal Negative [facility] Comment on above: Order Comment: Faxed Results to U [phone] at 1525 on 05/09/25 Result Comment: Pres umptive negative for L. pneumophila serogroup 1 antigen in urine, suggesting no recent or current infection. Legionnaires' disease cannot be ruled out since other serogroups and species may also cause disease. Performed at: - [facility] [id number] Jewelry Salesperson: Kate Austin MD, Phone: [phone] Performed By: #### U RLEGIONELLA, UR STP AG ####[facility] , Strep Pneumoniae Ag, Uron Body Fluid Culture Not indicated. Normal . [facility] Comment on above: Order Comment: Faxed Results to [facility] [phone] at 1525 on 05/09/25 Performed By: #### U RLEGIONELLA, UR STP AG ####[facility] , Organism ID Not indicated. Normal . [facility] Comment on above: Order Comment: Faxed Results to [facility] [phone] at 1525 on 05/09/25 Performed By: #### U RLEGIONELLA, UR STP AG ####[facility] , Please Note: Comment Normal . [facility] Comment on above: Order Comment: Faxed Results to [facility] [phone] at 1525 on 05/09/25 Result Comment: [employer] standards require a culture to be performed on CSF specimens submitted for bacterial antigen testing. (CAP [id number]) Urine specimens will not be cultured. [employer] standards require a culture to be performed on CSF specimens submitted for bacterial antigen testing. (CAP PETER.[id number]) Urine specimens will not be cultured. Performed at: [address] [id number] Jewelry Salesperson: Kate Austin MD, Phone: [phone] --- 05/08/25 1636 --- Please Note: previously reported as: Comment [employer] standards require a culture to be performed on CSF specimens submitted for bacterial antigen testing. (CAP PETER.[id number]) Urine specimens will not be cultured. PERFORMED BY: [address] [place] [address] PATHOLOGIST ARCHITECTURE ANALYST MAXIM HERNANDEZ M.D. Performed By: #### U RLEGIONELLA, UR STP AG ####[facility] , Specimen source Nom (Unsp spec) Urine Normal . [facility] Comment on above: Order Comment: Faxed Results to [facility] [phone] at 1525 on 05/09/25 Performed By: #### U RLEGIONELLA, UR STP AG ####[facility] , Streptococcus Pneumoniae Ag Negative Normal Negative [facility] Comment on above: Order Comment: Faxed Results to [facility] [phone] at 1525 on 05/09/25 Performed By: #### U SUYAPA KWOK STP AG ####[facility] , Aerobic Cultureon 05-05-2025 Aerobic Culture Faxed Results to [facility] [phone] at 1525 on 05/09/25 Result Tab Codes Heavy Normal Respiratory Cameron 2 Days Faxed Results to [facility] [phone] at 1525 on 05/09/25 Gram Stain Result 3+ Gram Positive Cocci in Pairs 3+ Gram Positive Cocci in Clusters 3+ Gram Negative Bacilli 3+ White Blood Cells 2+ Epithelial Cells Rare Yeast Like Elements PERFORMED BY: [place] [address] PATHOLOGIST ARCHITECTURE ANALYST MAXIM HERNANDEZ M.D. Normal [facility] Comment on above: Performed By: #### A ERC, GS #### [address] Basic Metabolic Panelon Anion gap [Moles/Vol] 14.3 mmol/L Normal 6.0-15.0 [facility] Comment on above: Performed By: #### B MP, CBC #### [place] [address] [place] Calcium [Mass/Vol] 8.9 mg/dL Normal 8.6-10.3 [facility] Comment on above: Performed By: #### B MP, CBC #### [place] [address] [place] Chloride [Moles/Vol] 97 mmol/L Low 98-107 [facility] Comment on above: Performed By: #### B MP, CBC #### [place] [id number] [place] CO2 [Moles/Vol] 24.8 mmol/L Normal 21.0-31.0 [facility] Comment on above: Performed By: #### B MP, CBC #### [address] Creatinine [Mass/Vol] 1.45 mg/dL High 0.70-1.30 [facility] Comment on above: Performed By: #### B MP, CBC #### [address] Creatinine Clr Calc Pharmacy 47.59 Normal [facility] Comment on above: Result Comment: PERF ORMED BY: [place] [address] PATHOLOGIST ARCHITECTURE ANALYST MAXIM HERNANDEZ M.D. Performed By: #### B MP, CBC #### [address] GFR/1.73 sq M.predicted MDRD (S/P/Bld) [Vol rate/Area] 46.930 mL/min/{1.73_m2} Normal [facility] Comment on above: Performed By: #### B MP, CBC #### [address] Glucose [Mass/Vol] 139 mg/dL High 70-100 [facility] Comment on above: Result Comment: [place] Glucose Reference Range is dependent on time and content of last meal. Glucose of more than 200 mg/dL in a nonstressed, ambulatory subject supports the diagnosis of Diabetes Mellitus. ADA recommended reference range Performed By: #### B MP, CBC #### [place] [address] [place] Potassium [Moles/Vol] 4.1 mmol/L Normal 3.5-5.1 [facility] Comment on above: Performed By: #### B MP, CBC #### [place] [address] [place] Sodium [Moles/Vol] 132 mmol/L Low 136-145 [facility] Comment on above: Performed By: #### B MP, CBC #### [address] Urea nitrogen [Mass/Vol] 32 mg/dL High 7-25 [facility] Comment on above: Performed By: #### B MP, CBC #### [facility] [address] [place] [id number] [facility] CT angio chest PE protocolon 05-05-2025 CT angio chest PE protocol [facility] [place] [address] [place] [id number] [address] Scan Report Signed Patient: Tristin Powell MR#: [id number] : 1940 Acct:[id number] Age/Sex: 85 / M ADM Date: 05/04/25 Loc: Room: [address] [place] [address] Type: ADM IN Attending Dr: Adiel Mccollum MD Copies to: MD Enrique Quinonez MD Ordering Provider: Enrique Suarez MD Date of Service: 05/04/25 CT/CT angio chest PE protocol: worsening hypoxia CTA Chest with PE protocol TECHNIQUE: Axial imaging with 2-D and 3-D reconstruction. 90cc of Isovue-[address] exam was performed using one or more the following dose reduction techniques: Automated exposure control, adjustment of the MA and/or Kv according to patient size, or use of the iterative reconstruction technique. History: Worsening hypoxia. COMPARISON: None THYROID: Unremarkable TRACHEA AND BRONCHI: Patent ESOPHAGUS: Small hiatal hernia HEART: Cardiomegaly. Sternotomy. CABG. PERICARDIAL EFFUSION: None CORONARY ARTERY CALCIFICATION: Present MEDIASTINUM: No adenopathy. No pneumoperitoneum. No mediastinal hematoma. PULMONARY EMIL: No hilar mass or adenopathy is seen. THORACIC AORTA Unremarkable PULMONARY EMBOLUS: Limited secondary to motion artifact in the lung bases. No central pulmonary embolus. LUNG NODULE None LUNGS: Patchy infiltrate right lower lobe, right middle lobe, left lower lobe and lingula. 10.0 x 5.2 x 5.5 cm air-fluid collection suspicious for abscess in the left lower lobe posterior basilar segment. PLEURAL EFFUSION: None PNEUMOTHORAX: No pneumothorax seen. CHEST WALL: No abnormality AXILLA: Unremarkable BONY STRUCTURES Intact UPPER ABDOMEN: Images of the upper abdomen are noncontributory. CT/CT angio chest PE protocol IMPRESSION: Motion artifact degrading imaging. No central pulmonary embolus. Bilateral patchy infiltrate. 10 cm air-fluid collection in the left lower lobe concerning for infected bulla versus abscess. Impression dictated by: Crisitan Rodriguez M.D. 05/05/2025 8:31 AM Dictation Location: [place] [address] Transcribed By: [facility] 05/05/25830 Dictated By: Cristian Rodriguez DO 05/05/25827 Signed By: 05/05/25830 Normal [facility] Diff and CBCon 05-05-2025 Anisocytosis Ql (Bld) Slight Normal [facility] Comment on above: Performed By: #### B MP, CBC #### [address] Band form neutrophils/100 WBC (Bld) 22 % High 0-5 [facility] Comment on above: Performed By: #### B MP, CBC #### [address] Crenated RBC Slight Normal [facility] Comment on above: Performed By: #### B MP, CBC #### [address] Erythrocyte distribution width (RBC) [Ratio] 16.0 % High 12.0-14.8 [facility] Comment on above: Performed By: #### B MP, CBC #### [address] Hematocrit (Bld) [Volume fraction] 35.0 % Low 38.8-50.0 [facility] Comment on above: Performed By: #### B MP, CBC #### [address] Hemoglobin (Bld) [Mass/Vol] 12.4 g/dL Low 13.0-17.0 [facility] Comment on above: Performed By: #### B MP, CBC #### [address] Lymphocytes/100 WBC (Bld) 6 % Low 18-42 [facility] Comment on above: Performed By: #### B MP, CBC #### [address] MCH (RBC) [Entitic mass] 32.8 pg Normal 27.5-35.2 [facility] Comment on above: Performed By: #### B MP, CBC #### [address] MCV (RBC) [Entitic vol] 92.6 fL Normal 83.5-101 [facility] Comment on above: Performed By: #### B MP, CBC #### [address] Mean Corpuscular HGB Conc 35.4 g/dL Normal 32.5-35.6 [facility] Comment on above: Performed By: #### B MP, CBC #### [address] Metamyelocytes 2 % High 0-0 [facility] Comment on above: Performed By: #### B MP, CBC #### [address] Monocytes/100 WBC (Bld) 8 % Normal 2-11 [facility] Comment on above: Performed By: #### B MP, CBC #### [address] Platelet Estimate Normal Normal Normal [facility] Comment on above: Performed By: #### B MP, CBC #### [address] Platelet mean volume (Bld) [Entitic vol] 7.3 fL Normal 6.6-10.1 [facility] Comment on above: Performed By: #### B MP, CBC #### [address] Platelet Morphology Normal Normal Normal [facility] Comment on above: Result Comment: PERF ORMED BY: [place] [address] PATHOLOGIST ARCHITECTURE ANALYST MAXIM HERNANDEZ M.D. Performed By: #### B MP, CBC #### [address] Platelets (Bld) [#/Vol] 248 10*3/uL Normal 150-450 [facility] Comment on above: Performed By: #### B MP, CBC #### [facility] [address] RBC (Bld) [#/Vol] 3.78 10*6/uL Low 3.90-5.60 [facility] Comment on above: Performed By: #### B MP, CBC #### [facility] [address] Segmented neutrophils/100 WBC (Bld) 62 % Normal 50-70 [facility] Comment on above: Performed By: #### B MP, CBC #### [facility] [address] Toxic Vacuolation Slight Normal [facility] Comment on above: Performed By: #### B MP, CBC #### [facility] [address] WBC (Bld) [#/Vol] 7.6 10*3/uL Normal 4.1-10.5 [facility] Comment on above: Performed By: #### B MP, CBC #### [address] White Blood Count 7.6 [CFU]/mL Normal 4.1-10.5 [facility] Comment on above: Performed By: #### B MP, CBC #### [address] E[facility] echo transthoracicon ECH echo transthoracic [facility] [place] [address] Echocardiogram Signed Patient: Tristin Powell MR#: [id number] : 1940 Acct:[id number] Age/Sex: 85 / M ADM Date: 05/04/25 Loc: Room: [address] [place] [address] Type: ADM IN Attending Dr: Ben Reddy DO Ordering Provider: Mell Hou APRN Date of Service: 05/03/2502/19/1109 ECH/ECH echo transthoracic: Chest pain Copies to: MD Mell Morton, 11:27 AM Patient Location: : 1940 Gender: Male (MM/DD/YYYY) Age: 85 Years Ordering Physician: Mell Hou Height: 74 in Weight: 235.233 lb Performed By: ALEXEY Kilpatrick BSA: 2.33 m2 BP: 129 / 59 mmHg HR: 85 bpm Reason For Study: Chest pain History: PVD, HTN, CAD, HLD + -------+ Interpretation Summary Ejection Fraction = 50-55%. Moderate concentric left ventricular hypertrophy. Septal motion is consistent with conduction abnormality. No regional wall motion abnormalities. A variety of Doppler measurements indicate normal left ventricular diastolic function. Mild aortic regurgitation. There is mild mitral regurgitation. Compared to prior study, there is no significant change. Procedure/Quality: A two-dimensional transthoracic echocardiogram with color flow, Doppler and injection of contrast agent Definity was performed. The study was technically good in quality. Left Ventricle: The left ventricular size is normal. Moderate concentric left ventricular hypertrophy. Ejection Fraction = 50-55%. A variety of Doppler measurements indicate normal left ventricular diastolic function. Septal motion is consistent with conduction abnormality. Left Atrium: The left atrium appears normal in size. Right Atrium: The right atrium appears normal in size. Right Ventricle: The right ventricle is normal in size and function. Aortic Valve: The aortic valve is mildly calcified. No hemodynamically significant valvular aortic stenosis. Mild aortic regurgitation. Mitral Valve: The mitral valve is moderately sclerotic. No significant mitral valve stenosis. There is mild mitral regurgitation. Tricuspid Valve: The tricuspid valve is normal in structure. No tricuspid regurgitation. Pulmonic Valve: The pulmonic valve is not well visualized. Mild pulmonic valvular regurgitation. Arteries: Mild aortic root dilatation. Borderline dilated ascending aorta. Pericardium/Pleura: No pericardial effusion seen. IVC/Hepatic Veins: The inferior vena cava is normal in size, with a normal collapsibility index. MMode/2D Measurements Calculations IVSd (0.7-1.1 cm): 1.50 cm LVIDd (3.7-5.4 cm): 4.7 cm LVPWd (0.7-1.1 cm): 1.60 cm LVIDs (2.3-3.6 cm): 3.4 cm LA dimension (2.3-4.0 cm): 3.9 LVOT diam: 2.40 cm cm FS: 27.7 % LVOT area: 4.5 cm2 EDV(Teich): 102.4 ml Ao root area: 12.6 cm2 ESV(Teich): 47.4 ml Ao root diam (2.0-3.2 cm): 4.0 cm EF(Teich): 53.7 % asc Aorta Diam: 3.9 cm LA A2 area: 18.7 cm2 LA A4 area: 19.8 cm2 LA length (vol): 5.5 cm LA vol: 56.8 ml LA vol index: 24.4 ml/m2 Doppler Measurements Calculations E/E' med: 11.7 Ao V2 max: 131.0 cm/sec E/E' lat: 10.2 Ao max P.9 mmHg MV E max sukhi: 82.6 cm/sec Ao mean P.0 mmHg MV A max sukhi: 105.0 cm/sec Ao V2 mean: 92.3 cm/sec MV E/A: 0.79 Ao V2 VTI: 25.6 cm RAMIREZ(I,D): 4.0 cm2 RAMIREZ(V,D): 3.8 cm2 AI P1/2t: 469.5 msec MV V2 VTI: 35.5 cm MV mean P.0 mmHg MV V2 mean: 80.1 cm/sec MV P1/2t: 62.9 msec MV dec time: 0.21 sec MVA(P1/2t): 3.5 cm2 MV dec slope: 573.0 cm/sec?? TV max P.0 mmHg LV V1 max: 110.0 cm/sec TR max sukhi: 259.0 cm/sec LV V1 max P.8 mmHg TR max P.8 mmHg LV V1 mean: 75.9 cm/sec LV V1 mean P.0 mmHg LV V1 VTI: 22.8 cm + ----+ + ----+ ----+ : Electronically : : : : signed by: Eliezer : : : : Jim : : Daisy : : : : on: 05/05/2025, : : : : 5:52 PM : + ----+ ----+ Tech Comments previous echo in [place]. No previous echo. Transcribed By: SCV Performed At: 05/05/25 1127 Signed By: Eliezer Villa MD 05/05/25 2078 Normal [facility] Gram Stainon 05-05-2025 Microscopic observation Gram stain Nom (Unsp spec) Gram Stain Result 3+ Gram Positive Cocci in Pairs 3+ Gram Positive Cocci in Clusters 3+ Gram Negative Bacilli 3+ White Blood Cells 2+ Epithelial Cells Rare Yeast Like Elements PERFORMED BY: [place] [address] PATHOLOGIST ARCHITECTURE ANALYST MAXIM HERNANDEZ M.D. Normal [facility] Comment on above: Performed By: #### A JOSE ARMANDO HAIR #### [address] XR chest 1V portableon 05-05 XR chest 1V portable [facility] [place] [address] [place] [address] XRay Report Signed Patient: Tristin Powell MR#: [id number] : 1940 Acct:[id number] Age/Sex: 85 / M ADM Date: 05/04/25 Loc: Room: [address] [place] [address] Type: ADM IN Attending Dr: Adiel Mccollum MD Copies to: MD Enrique Quinonez MD Ordering Provider: Enrique Suarez MD Date of Service: 05/04/25 XR/XR chest 1V portable: SOB increasing hypoxia Plain film chest Single view HISTORY: Shortness of breath COMPARISON: 05/02/2025 FINDINGS: SUPPORT DEVICES: None POSTSURGICAL CHANGES: None HEART: Within normal limits PULMONARY EMIL: Within normal limits MEDIASTINUM: Unremarkable LUNGS AND PLEURA: Developing right basilar consolidation. Continued left basilar cystic change no pneumothorax BONY STRUCTURES: Intact ADDITIONAL FINDINGS None XR/XR chest 1V portable IMPRESSION: Developing right basilar atelectasis/pneumonitis Impression dictated by: Cristian Rodriguez M.D. 05/05/2025 9:21 AM Dictation Location: [place] [address] Transcribed By: [facility] 05/05/25 09 Dictated By: Cristian Rodriguez DO 05/05/25 09 Signed By: 05/05/25 09 Normal [facility] Aerobic Cultureon 05-04-2025 Aerobic Culture Faxed Results to [facility] [phone] at 1525 on 05/09/25 ORGANISM: Streptococcus pneumoniae (O:STRPNE) Quantity of Growth Heavy Growth ORGANISM: Pseudomonas aeruginosa (O:PSEAER) Quantity of Growth Light Growth Faxed Results to [facility] [phone] at 1525 on 05/09/25 Gram Stain Result 3+ White Blood Cells 3+ Epithelial Cells 3+ Gram Positive Bacilli 3+ Gram Positive Cocci in Chains AND PAIRS 3+ Gram Negative Cocci 2+ Gram Negative Bacilli Aerobic Peter Charge (Strep) -- SUSCEPTIBILITY - ORGANISM: O:STRPNE ANTIBIOTIC INTERPRETATION PETER Amoxacillin/K Clavulanate I 44/2 Cefepime I 2 Ceftriaxone I 1 Cefuroxime R >2 Erythromycin R >0.5 Levofloxacin S 1 Meropenem R >0.5 Penicillin R 4 Tetracycline R >4 Trimethoprim/Sulfametho xazole R >2 Vancomycin S 0.5 Aerobic PETER Charge (NMIC56) -- SUSCEPTIBILITY - ORGANISM: O:PSEAER ANTIBIOTIC INTERPRETATION PETER Amikacin S <16 Aztreonam I <4 Cefepime S <2 Ceftazidime I <1 Ceftazidime/Avibactam S <4 Ceftolozane/Tazobactam S <2 Ciprofloxacin R 2 Gentamicin S <2 Levofloxacin R 4 Meropenem S <1 Piperacillin/Tazobactam I <8 Tobramycin S <2 S = SUSCEPTIBLE I = INTERMEDIATE R = RESISTANT BLANK = DATA NOT AVAILABLE, OR DRUG NOT ADVISABLE OR TESTED R* = RESISTANCE DUE TO EXTENDED SPECTRUM BETA-LACTAMASES ESBL = EXTENDED SPECTRUM BETA-LACTAMASE TFG = THYMIDINE-DEPENDENT STRAIN SANCHEZ = BETA-LACTAMASE POSITIVE IB = INDUCIBLE BETA-LACTAMASE. APPEARS IN PLACE OF 'S' WITH SPECIES KNOWN TO POSSESS INDUCIBLE BETA-LACTAMASES. POTENTIALLY THEY MAY BECOME RESISTANT TO ALL B-LACTAM DRUGS. PERFORMED BY: [place] [address] PATHOLOGIST ARCHITECTURE ANALYST MAXIM HERNANDEZ M.D. Normal [facility] Comment on above: Performed By: #### A [facility], #### [address] ECG 12 lead ECGon 05-04-2025 ECG 12 lead ECG [facility] [place] [address] [place] [address] Electrocardiograph Report Signed Patient: Tristin Powell MR#: [id number] : 1940 Acct:[id number] Age/Sex: 85 / M ADM Date: 05/04/25 Loc: Room: [address] [place] [address] Type: ADM IN Attending Dr: Ben Reddy DO Ordering Provider: Adiel Mccollum MD Date of Service: 05/04/2503/21/1945 ECG/ECG 12 lead ECG: Left-Sided Chest Pain Copies to: Test Reason : Blood Pressure : */* mmHG Vent. 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) Abnormal ECG When compared with ECG of 03-May-2025 14:07, Atrial fibrillation has replaced Sinus rhythm Borderline criteria for Lateral infarct are no longer present Confirmed by Eliezer Villa ([id number]) on 05/05/2025 5:26:36 PM Referred By: Electronically Signed By: Eliezer Villa Transcribed By: MUS Signed By Eliezer Villa MD 05/05/25 1721 Normal [facility] Gram Stainon 05-04-2025 Microscopic observation Gram stain Nom (Unsp spec) Gram Stain Result 3+ White Blood Cells 3+ Epithelial Cells 3+ Gram Positive Bacilli 3+ Gram Positive Cocci in Chains AND PAIRS 3+ Gram Negative Cocci 2+ Gram Negative Bacilli PERFORMED BY: [place] [address] PATHOLOGIST ARCHITECTURE ANALYST MAXIM HERNANDEZ M.D. Normal [facility] Comment on above: Performed By: #### A REGINALDO #### [address] MRSA - MSSA Nasal PCRon MRSA - MSSA Nasal PCR Faxed Results to Jerry JOHNS [phone] at 1075 on 05/09/25 MRSA Result MRSA Negative MSSA Result MSSA Negative Real-time PCR Test performed by real-time PCR Reference Range Reference Range for all targets = Neg / Not Detected Reference Note 20 -------- Reference Note 26 -------- PERFORMED BY: [place] [address] PATHOLOGIST ARCHITECTURE ANALYST MAXIM HERNANDEZ M.D. Normal [facility] Comment on above: Performed By: #### M RSA - MSSA PCR #### [address] Magnesiumon 05-04-2025 Magnesium [Mass/Vol] 1.7 mg/dL Low 1.9-2.7 [facility] Comment on above: Result Comment: PERF ORMED BY: [place] [address] PATHOLOGIST ARCHITECTURE ANALYST MAXIM HERNANDEZ M.D. Performed By: #### M G ####[address] Troponin I High Sensitivityo n 05-04-2025 Troponin I High Sensitivity 47 High 0-20 [facility] Comment on above: Result Comment: The Troponin units of report have been changed to meet the Chest Pain Accreditation requirement, element EC5.M1l2. Troponin units are changed from pg/ml to ng/L. Also, the decimal is removed and results are in whole numbers. PERFORMED BY: [place] [address] PATHOLOGIST ARCHITECTURE ANALYST MAXIM HERNANDEZ M.D. Performed By: #### C BC #### [address] Basic Metabolic Panelon 09-0 Anion gap [Moles/Vol] 12.6 mmol/L Normal 6.0-15.0 [facility] Comment on above: Order Comment: FASTI NG Y Performed By: #### C BC #### [address] Calcium [Mass/Vol] 9.3 mg/dL Normal 8.6-10.3 [facility] Comment on above: Order Comment: FASTI NG Y Performed By: #### C BC #### [facility] [address] [place] [id number] [place] Chloride [Moles/Vol] 103 mmol/L Normal 98-107 [facility] Comment on above: Order Comment: FASTI NG Y Performed By: #### C BC #### [facility] [address] [place] [address] [facility] CO2 [Moles/Vol] 26.4 mmol/L Normal 21.0-31.0 [facility] Comment on above: Order Comment: FASTI NG Y Performed By: #### C BC #### [facility] [address] [place] [id number] [place] Creatinine [Mass/Vol] 0.90 mg/dL Normal 0.70-1.30 [facility] Comment on above: Order Comment: FASTI NG Y Performed By: #### C BC #### [facility] [address] [place] [address] [place] Creatinine Clr Calc Pharmacy 77.27 Normal [facility] Comment on above: Order Comment: FASTI NG Y Performed By: #### C BC #### [facility] [address] [place] [id number] [place] GFR/1.73 sq M.predicted MDRD (S/P/Bld) [Vol rate/Area] mL/min/{1.73_m2} Normal [facility] Comment on above: Order Comment: FASTI NG Y Performed By: #### C BC #### [facility] [address] [place] [id number] [place] Glucose [Mass/Vol] 87 mg/dL Normal 70-100 [facility] Comment on above: Order Comment: FASTI NG Y Result Comment: [place] om Glucose Reference Range is dependent on time and content of last meal. Glucose of more than 200 mg/dL in a nonstressed, ambulatory subject supports the diagnosis of Diabetes Mellitus. ADA recommended reference range Performed By: #### C BC #### [facility] [address] [place] [id number] [place] Potassium [Moles/Vol] 4.0 mmol/L Normal 3.5-5.1 [facility] Comment on above: Order Comment: FASTI NG Y Performed By: #### C BC #### [address] Sodium [Moles/Vol] 138 mmol/L Normal 136-145 [facility] Comment on above: Order Comment: FASTI NG Y Performed By: #### C BC #### [address] Urea nitrogen [Mass/Vol] 22 mg/dL Normal 7-25 [facility] Comment on above: Order Comment: FASTI NG Y Performed By: #### C BC #### [address] Complete Blood Count Auto Di ffon 05-03-2025 Basophils (Bld) [#/Vol] 0.0 10*3/uL Normal 0.0-0.2 [facility] Comment on above: Result Comment: PERF ORMED BY: [place] [address] PATHOLOGIST ARCHITECTURE ANALYST MAXIM HERNANDEZ M.D. Performed By: #### C BC #### [address] Basophils/100 WBC (Bld) 0.4 % Normal . [facility] Comment on above: Performed By: #### C BC #### [address] Eosinophils (Bld) [#/Vol] 0.0 10*3/uL Normal 0.0-0.45 [facility] Comment on above: Performed By: #### C BC #### [address] Eosinophils/100 WBC (Bld) 0.5 % Normal . [facility] Comment on above: Performed By: #### C BC #### [address] Erythrocyte distribution width (RBC) [Ratio] 15.9 % High 12.0-14.8 [facility] Comment on above: Performed By: #### C BC #### [address] Hematocrit (Bld) [Volume fraction] 33.8 % Low 38.8-50.0 [facility] Comment on above: Performed By: #### C BC #### [address] Hemoglobin (Bld) [Mass/Vol] 11.9 g/dL Low 13.0-17.0 [facility] Comment on above: Performed By: #### C BC #### [address] Lymphocytes (Bld) [#/Vol] 0.6 10*3/uL Low 1.00-4.8 [facility] Comment on above: Performed By: #### C BC #### [address] Lymphocytes/100 WBC (Bld) 20.9 % Normal . [facility] Comment on above: Performed By: #### C BC #### [address] MCH (RBC) [Entitic mass] 33.3 pg Normal 27.5-35.2 [facility] Comment on above: Performed By: #### C BC #### [address] MCV (RBC) [Entitic vol] 94.3 fL Normal 83.5-101 [facility] Comment on above: Performed By: #### C BC #### [address] Mean Corpuscular HGB Conc 35.3 g/dL Normal 32.5-35.6 [facility] Comment on above: Performed By: #### C BC #### [address] Monocytes (Bld) [#/Vol] 0.6 10*3/uL Normal 0.0-0.8 [facility] Comment on above: Performed By: #### C BC #### [address] Monocytes/100 WBC (Bld) 23.2 % Normal . [facility] Comment on above: Performed By: #### C BC #### [facility] [address] [place] [address] [place] Neutrophils (Bld) [#/Vol] 1.5 10*3/uL Low 1.8-7.7 [facility] Comment on above: Performed By: #### C BC #### [facility] [address] [place] [id number] [place] Neutrophils/100 WBC (Bld) 55.0 % Normal . [facility] Comment on above: Performed By: #### C BC #### [facility] [address] [place] [address] [place] NRBC% 0.2 /100{WBC} Normal 0-0.5 [facility] Comment on above: Performed By: #### C BC #### [facility] [address] [place] [address] [place] Platelet mean volume (Bld) [Entitic vol] 7.3 fL Normal 6.6-10.1 [facility] Comment on above: Performed By: #### C BC #### [facility] [address] [place] [phone] [place] Platelets (Bld) [#/Vol] 216 10*3/uL Normal 150-450 [facility] Comment on above: Performed By: #### C BC #### [facility] [address] [place] [phone] [place] RBC (Bld) [#/Vol] 3.58 10*6/uL Low 3.90-5.60 [facility] Comment on above: Performed By: #### C BC #### [facility] [address] [place] [phone] [place] WBC (Bld) [#/Vol] 2.8 10*3/uL Low 4.1-10.5 [facility] Comment on above: Performed By: #### C BC #### [facility] [address] [place] [phone] [place] White Blood Count 2.8 [CFU]/mL Low 4.1-10.5 [facility] Comment on above: Performed By: #### C BC #### [facility] [address] ECG 12 lead ECGon 05-03-2025 ECG 12 lead ECG [facility] [place] [address] [place] [address] Electrocardiograph Report Signed Patient: Tristin Powell MR#: [id number] : 1940 Acct:[id number] Age/Sex: 85 / M ADM Date: 05/02/25 Loc: Room: [address] [place] [address] Type: ADM INOo Attending Dr: Adiel Mccollum MD Ordering Provider: Mell Hou APRN Date of Service: 05/03/2502/20/1108 ECG/ECG 12 lead ECG: chest pain Copies to: Test Reason : Blood Pressure : */* mmHG Vent. Rate : 89 BPM Atrial Rate : 89 BPM P-R Int : 176 ms QRS Dur : 136 ms QT Int : 402 ms P-R-T Axes : 70 9 53 degrees QTcB Int : 489 ms Normal sinus rhythm Right bundle branch block Cannot rule out Inferior infarct (cited on or before 02-May-2025) Abnormal ECG When compared with ECG of 02-May-2025 14:28, Borderline criteria for Lateral infarct are now present Confirmed by Eliezer Villa ([id number]) on 05/04/2025 8:06:25 AM Referred By: Electronically Signed By: Eliezer Villa Transcribed By: MUS Signed By Eliezer Villa MD 05/04/25 0806 Normal [facility] Lipid Panelon 05-03-2025 Cholesterol [Mass/Vol] 136 mg/dL Low 140-200 [facility] Comment on above: Order Comment: FASTI NG Y Result Comment: Chol less than 200 mg/dl low risk Chol 201-239 mg/dl borderline risk Chol 240 mg/dl and greater high risk Performed By: #### C BC #### [address] Cholesterol in HDL [Mass/Vol] 56 mg/dL Normal 23-92 [facility] Comment on above: Order Comment: FASTI NG Y Result Comment: HDL CHOL ATP-III CLASSIFICATION Cardiovascular Risk HDL > or equal to 60 mg/dL LOW HDL < 40 mg/dL HIGH Performed By: #### C BC #### [address] Cholesterol.total/Cho lesterol in HDL [Mass ratio] 2.4 {ratio} Normal <5.0 [facility] Comment on above: Order Comment: SHERRILL Ann Result Comment: PERF ORMED BY: [place] [address] PATHOLOGIST ARCHITECTURE ANALYST MAXIM HERNANDEZ M.D. Performed By: #### C BC #### [address] LDL Cholesterol,Calculate d 65 mg/dL Normal 0-100 [facility] Comment on above: Order Comment: SHERRILL Ann Result Comment: LDL ATP III CLASSIFICATION LDL less than 100 mg/dL Optimal LDL 100-129 mg/dL Near or above optimal LDL 130-159 mg/dL Borderline high LDL 160-189 mg/dL High LDL greater than 189 mg/dL Very high Performed By: #### C BC #### [address] Triglyceride w/Reflex 76 mg/dL Normal 0-149 [facility] Comment on above: Order Comment: SHERRILL Ann Result Comment: TRIG ATP III CLASSIFICATION TRIG less than 150 mg/dL Normal TRIG 150-199 mg/dL Borderline high TRIG 200-500 mg/dL High TRIG greater than 500 mg/dL Very high Standard traceable to the Center for Disease Conrtrol and Prevention (CDC) test method. Performed By: #### C BC #### [address] VLDL CHOLESTEROL 15 mg/dL Normal [facility] Comment on above: Order Comment: SHERRILL Ann Performed By: #### C BC #### [address] Troponin I High Sensitivityo n 05-03-2025 Troponin I High Sensitivity 45 High 0-20 [facility] Comment on above: Result Comment: The Troponin units of report have been changed to meet the Chest Pain Accreditation requirement, element EC5.M1l2. Troponin units are changed from pg/ml to ng/L. Also, the decimal is removed and results are in whole numbers. PERFORMED BY: [place] [phone] PATHOLOGIST ARCHITECTURE ANALYST MAXIM HERNANDEZ M.D. Performed By: #### B MP, CBC #### [address] Troponin I High Sensitivity 51 Off scale high 0-20 [facility] Comment on above: Order Comment: Comme nt Add on Result Comment: Crit ical Result : Called to and read back by: ROCIO BOO at: 05/03/2025 10:18:05 by:KULDEEP The Troponin units of report have been changed to meet the Chest Pain Accreditation requirement, element EC5.M1l2. Troponin units are changed from pg/ml to ng/L. Also, the decimal is removed and results are in whole numbers. PERFORMED BY: [place] [phone] PATHOLOGIST ARCHITECTURE ANALYST MAXIM HERNANDEZ M.D. Performed By: #### B MP, CBC #### [address] Troponin I High Sensitivity 52 Off scale high 0-20 [facility] Comment on above: Result Comment: Crit ical Result : Called to and read back by: ERICA KIMBLE at: 05/03/2025 01:16:26 by:[id number] The Troponin units of report have been changed to meet the Chest Pain Accreditation requirement, element EC5.M1l2. Troponin units are changed from pg/ml to ng/L. Also, the decimal is removed and results are in whole numbers. PERFORMED BY: [place] [phone] PATHOLOGIST ARCHITECTURE ANALYST MAXIM HERNANDEZ M.D. Performed By: #### C BC #### [address] BNP ser/plasOrdered By: Louis Greene on 05-02-2025 Natriuretic peptide B (Bld) [Mass/Vol] 222.0 pg/mL High 5-100 [facility] Comment on above: Result Comment: PERF ORMED BY: [place] [address] PATHOLOGIST ARCHITECTURE ANALYST MAXIM HERNANDEZ M.D. Performed By: #### B MP, CBC #### [facility] [address] [place] [address] Basic Metabolic Panelon Creatinine Clr Calc Pharmacy 79.92 Normal [facility] Comment on above: Result Comment: PERF ORMED BY: [place] [address] PATHOLOGIST ARCHITECTURE ANALYST MAXIM HERNANDEZ M.D. Performed By: #### B MP, CBC #### [place] [address] [place] GFR/1.73 sq M.predicted MDRD (S/P/Bld) [Vol rate/Area] mL/min/{1.73_m2} Normal [facility] Comment on above: Performed By: #### B MP, CBC #### [place] [address] [place] Basophils [#/volume] in Bloo d by Automated countOrdered By: Muna Greene on 05-02-2025 Basophils (Bld) [#/Vol] 0.0 10*3/uL Normal 0.0-0.2 [facility] Comment on above: Result Comment: PERF ORMED BY: [place] [address] PATHOLOGIST ARCHITECTURE ANALYST MAXIM HERNANDEZ M.D. Performed By: #### B MP, CBC #### [place] [address] [place] Basophils/100 leukocytes in Blood by Automated countOrdered By: Muna Greene on 05-02-2025 Basophils/100 WBC (Bld) 0.2 % Normal . [facility] Comment on above: Performed By: #### B MP, CBC #### [place] [address] [place] BioFire Not Detectedon 05-02 BioFire Not Detected Not detected Normal Not Detecte [facility] Comment on above: Order Comment: Faxed Results to [facility] [phone] at 6486 on 05/09/25 Result Comment: This is a duplicate RP2.1 COVID (PCR) result to be used for statistical tracking purpose only. PERFORMED BY: [place] [address] PATHOLOGIST ARCHITECTURE ANALYST MAXIM HERNANDEZ M.D. Performed By: #### C BC #### [place] [address] [place] Calcium [Mass/volume] in Ser um or PlasmaOrdered By: Muna Greene on 05-02-2025 Calcium [Mass/Vol] 9.7 mg/dL Normal 8.6-10.3 [facility] Comment on above: Performed By: #### B MP, CBC #### [place] [address] [place] Carbon dioxide, total [Moles /volume] in Serum or PlasmaOrdered By: Muna Greene on 05-02-2025 CO2 [Moles/Vol] 22.1 mmol/L Normal 21.0-31.0 [facility] Comment on above: Performed By: #### B MP, CBC #### [place] [address] [place] Chloride [Moles/volume] in S roger or PlasmaOrdered By: Muna Greene on 05-02-2025 Chloride [Moles/Vol] 105 mmol/L Normal 98-107 [facility] Comment on above: Performed By: #### B MP, CBC #### [place] [address] [place] Complete Blood Count Auto Di ffon 05-02-2025 Mean Corpuscular HGB Conc 34.6 g/dL Normal 32.5-35.6 [facility] Comment on above: Performed By: #### B MP, CBC #### [place] [address] [place] Monocytes/100 WBC (Bld) 19.32 % Normal 0.00-20.00 [facility] Comment on above: Performed By: #### B MP, CBC #### [facility] [address] NRBC% 0.0 /100{WBC} Normal 0-0.5 [facility] Comment on above: Performed By: #### B MP, CBC #### [facility] [address] White Blood Count 2.8 [CFU]/mL Low 4.1-10.5 [facility] Comment on above: Performed By: #### B MP, CBC #### [address] Creatinine [Mass/volume] in Serum or PlasmaOrdered By: Muna Greene on 05-02-2025 Creatinine [Mass/Vol] 0.88 mg/dL Normal 0.70-1.30 [facility] Comment on above: Performed By: #### B MP, CBC #### [place] [id number] [facility] ECG 12 lead ECGon 05-02-2025 ECG 12 lead ECG [facility] [place] [address] [place] [address] Electrocardiograph Report Signed Patient: Tristin Powell MR#: [id number] : 1940 Acct:[id number] Age/Sex: 85 / M ADM Date: 05/02/25 Loc: Room: [address] [place] [address] Type: ADM INOo Attending Dr: Adiel Mccollum MD Ordering Provider: Muna Greene DO Date of Service: 05/02/2501/19/1431 ECG/ECG 12 lead ECG: Upper Respiratory Infection Copies to: Test Reason : Blood Pressure : 173/79 mmHG Vent. Rate : 78 BPM Atrial Rate : 78 BPM P-R Int : 128 ms QRS Dur : 144 ms QT Int : 434 ms P-R-T Axes : * -10 34 degrees QTcB Int : 494 ms Normal sinus rhythm Right bundle branch block Inferior infarct , age undetermined Abnormal ECG No previous ECGs available Confirmed by Kaylie Gifford ([id number]) on 05/03/2025 1:49:52 AM Referred By: Electronically Signed By: Kaylie Gifford Transcribed By: MUS Signed By Kaylie Gifford DO 05/03 0149 Normal [facility] Eosinophils [#/volume] in Bl ood by Automated countOrdered By: Muna Greene on 05-02-2025 Eosinophils (Bld) [#/Vol] 0.0 10*3/uL Normal 0.0-0.45 [facility] Comment on above: Performed By: #### B MP, CBC #### [address] Eosinophils/100 leukocytes i n Blood by Automated countOrdered By: Muna Greene on 05-02-2025 Eosinophils/100 WBC (Bld) 0.1 % Normal . [facility] Comment on above: Performed By: #### B MP, CBC #### [address] Erythrocyte distribution wid th [Ratio] by Automated countOrdered By: Muna Greene on 05-02-2025 Erythrocyte distribution width (RBC) [Ratio] 15.9 % High 12.0-14.8 [facility] Comment on above: Performed By: #### B MP, CBC #### [address] Erythrocytes [#/volume] in B lood by Automated countOrdered By: Muna Greene on 05-02-2025 RBC (Bld) [#/Vol] 3.65 10*6/uL Low 3.90-5.60 [facility] Comment on above: Performed By: #### B MP, CBC #### [address] Ferritinon 05-02-2025 Ferritin [Mass/Vol] 211.0 ng/mL Normal 23.9-336.2 [facility] Comment on above: Performed By: #### F OL, PT, CBC, BMP, HS TROP, BNP, B12, TIBC, FE, MARI ####[facility] [id number] Folateon 05-02-2025 Folate 10.2 ng/mL Normal >5.9 [facility] Comment on above: Result Comment: Tonia te reference range: >5.9 ng/ml The WHO technical consultation on folate and vitamin b12 deficiencies has determined that folate concentrations less than 4 ng/ml are considered deficient. PERFORMED BY: [facility] [address] [place] [address] PATHOLOGIST ARCHITECTURE ANALYST MAXIM HERNANDEZ M.D. Performed By: #### F OL, PT, CBC, BMP, HS TROP, BNP, B12, TIBC, FE, MARI ####[facility] [id number] Glomerular filtration rate [ Volume Rate/Area] in Serum, Plasma or Blood by CreatinineOrdered By: Muna Greene on 05-02-2025 Glomerular filtration rate [Volume Rate/Area] in Serum, Plasma or Blood by Creatinine > 60.0 mL/Min [facility] Glucose [Mass/volume] in Ser um or PlasmaOrdered By: Muna Greene on 05-02-2025 Glucose [Mass/Vol] 164 mg/dL High 70-100 [facility] Comment on above: ADA recommended refe rence rangeRandom Glucose Reference Range is dependent on time and content of last meal. Glucose of more than 200 mg/dL in a nonstressed, ambulatory subject supports the diagnosis of Diabetes Mellitus. Result Comment: [place] om Glucose Reference Range is dependent on time and content of last meal. Glucose of more than 200 mg/dL in a nonstressed, ambulatory subject supports the diagnosis of Diabetes Mellitus. ADA recommended reference range Performed By: #### B MP, CBC #### [facility] [address] Hematocrit [Volume Fraction] of Blood by Automated countOrdered By: Muna Greene on 05-02-2025 Hematocrit (Bld) [Volume fraction] 34.1 % Low 38.8-50.0 [facility] Comment on above: Performed By: #### B MP, CBC #### [facility] [address] Hemoglobin [Mass/volume] in BloodOrdered By: Muna Greene on 05-02-2025 Hemoglobin (Bld) [Mass/Vol] 11.8 g/dL Low 13.0-17.0 [facility] Comment on above: Performed By: #### B MAI, CBC #### [address] INR in Platelet poor plasma by Coagulation assayOrdered By: Muna Greene on 05-02-2025 INR Coag (PPP) [Relative time] 1.2 {INR} Normal [facility] Comment on above: INR Therapeutic Rang e A) Pre- and Peroperative OAT started two weeks before surgery. NOT HIP SURGERY: 1.5 - 2.5 HIP SURGERY: 2 - 3B) Primary and secondary prevention of venous THROMBOSIS: 2 - 3C) Active venous thrombosis, pulmonary embolismand prevention of recurrent venous thrombosis: 2 - 3D) Prevention of arterial thromboembolismincluding patients with mechanical heart valves: 3 - 4.5 Result Comment: INR Therapeutic Range A) Pre- and Peroperative OAT started two weeks before surgery. NOT HIP SURGERY: 1.5 - 2.5 HIP SURGERY: 2 - 3 B) Primary and secondary prevention of venous THROMBOSIS: 2 - 3 C) Active venous thrombosis, pulmonary embolism and prevention of recurrent venous thrombosis: 2 - 3 D) Prevention of arterial thromboembolism including patients with mechanical heart valves: 3 - 4.5 PERFORMED BY: [place] [address] PATHOLOGIST ARCHITECTURE ANALYST MAXIM HERNANDEZ M.D. Performed By: #### B MAI, CBC #### [place] [address] [place] Ironon 05-02-2025 Iron [Mass/Vol] 21 ug/dL Low 50-212 [facility] Comment on above: Performed By: #### B MAI, CBC #### [facility] [address] [place] [address] Leukocytes [#/volume] correc maximilian for nucleated erythrocytes in Blood by Automated counOrdered By: Muna Greene on 05-02-2025 WBC corrected for nucl RBC Auto (Bld) [#/Vol] 2.8 10*3/uL Low 4.1-10.5 [facility] Leukocytes [#/volume] in Blo od by Automated countOrdered By: Muna Greene on 05-02-2025 WBC (Bld) [#/Vol] 2.8 10*3/uL Low 4.1-10.5 [facility] Comment on above: Performed By: #### B MP, CBC #### [address] Lymphocytes [#/volume] in Bl ood by Automated countOrdered By: Muna Greene on 05-02-2025 Lymphocytes (Bld) [#/Vol] 0.3 10*3/uL Low 1.00-4.8 [facility] Comment on above: Performed By: #### B MP, CBC #### [address] Lymphocytes/100 leukocytes i n Blood by Automated countOrdered By: Muna Greene on 05-02-2025 Lymphocytes/100 WBC (Bld) 9.8 % Normal . [facility] Comment on above: Performed By: #### B MP, CBC #### [address] MCH [Entitic mass] by Automa maximilian countOrdered By: Muna Greene on 05-02-2025 MCH (RBC) [Entitic mass] 32.3 pg Normal 27.5-35.2 [facility] Comment on above: Performed By: #### B MP, CBC #### [address] MCHC Auto (RBC) [Mass/Vol]Or dered By: Muna Greene on 05-02-2025 MCHC (RBC) [Mass/Vol] 34.6 g/dL 32.5-35.6 [facility] MCV [Entitic volume] by Auto mated countOrdered By: Muna Greene on 05-02-2025 MCV (RBC) [Entitic vol] 93.4 fL Normal 83.5-101 [facility] Comment on above: Performed By: #### B MP, CBC #### [place] [address] [place] Monocyte distribution width [Entitic volume] in Blood by AutomatedOrdered By: Muna Greene on 05-02-2025 Monocyte distribution width Auto (Bld) [Entitic vol] 19.32 % 0.00-20.00 [facility] Monocytes [#/volume] in Bloo d by Automated countOrdered By: Muna Greene on 05-02-2025 Monocytes (Bld) [#/Vol] 0.1 10*3/uL Normal 0.0-0.8 [facility] Comment on above: Performed By: #### B MP, CBC #### [facility] [address] [place] [address] [place] Monocytes/100 leukocytes in Blood by Automated countOrdered By: Muna Greene on 05-02-2025 Monocytes/100 WBC (Bld) 5.1 % Normal . [facility] Comment on above: Performed By: #### B MP, CBC #### [facility] [address] [place] [address] [place] Neutrophils [#/volume] in Bl ood by Automated countOrdered By: Muna Greene on 05-02-2025 Neutrophils (Bld) [#/Vol] 2.3 10*3/uL Normal 1.8-7.7 [facility] Comment on above: Performed By: #### B MP, CBC #### [facility] [address] [place] [address] [place] Neutrophils/100 leukocytes i n Blood by Automated countOrdered By: Muna Greene on 05-02-2025 Neutrophils/100 WBC (Bld) 84.8 % Normal . [facility] Comment on above: Performed By: #### B MP, CBC #### [facility] [address] [place] [address] No Panel InformationOrdered By: Muna Greene on 05-02-2025 Pharmacy Creatinine Clearance (Chem 79.92 [facility] Nucleated erythrocytes [Pres ence] in Blood by Automated countOrdered By: Muna Greene on 05-02-2025 Nucleated RBC Auto Ql (Bld) 0.0 /100{WBC} 0-0.5 [facility] Platelet mean volume [Entiti c volume] in Blood by Automated countOrdered By: Muna Greene on 05-02-2025 Platelet mean volume (Bld) [Entitic vol] 7.2 fL Normal 6.6-10.1 [facility] Comment on above: Performed By: #### B MP, CBC #### [facility] [address] Platelets [#/volume] in Bloo d by Automated countOrdered By: Muna Greene on 05-02-2025 Platelets (Bld) [#/Vol] 219 10*3/uL Normal 150-450 [facility] Comment on above: Performed By: #### B MP, CBC #### [facility] [address] Potassium [Moles/volume] in Serum or PlasmaOrdered By: Muna Greene on 05-02-2025 Potassium [Moles/Vol] 4.9 mmol/L Normal 3.5-5.1 [facility] Comment on above: Performed By: #### B MP, CBC #### [facility] [address] Prothrombin time (PT)Ordered By: Muna Greene on 05-02-2025 PT Coag (PPP) [Time] 14.1 s High 9.0-12.9 [facility] Comment on above: A hematocrit value g reater than 55% may lead to inaccurate results in coagulation testing. Patients having hematocrit values >55% require a special collection tube for coagulation studies. Please contact the laboratory at [phone] for redraw instructions. Result Comment: A he matocrit value greater than 55% may lead to inaccurate results in coagulation testing. Patients having hematocrit values >55% require a special collection tube for coagulation studies. Please contact the laboratory at [phone] for redraw instructions. Performed By: #### B MP, CBC #### [facility] [address] Respiratory (Upper) Panel, P CRon 05-02-2025 Respiratory (Upper) Panel, PCR Faxed Results to [facility] [phone] at 1524 on 05/09/25 Adenovirus Not detected Bordetella parapertussis Not detected Chlamydia pneumoniae Not detected Coronavirus 229E Not detected Coronavirus HKU1 Not detected Coronavirus NL63 Not detected Coronavirus OC43 Not detected Influenza A Not detected Influenza B Not detected Human Metapneumovirus Not detected Mycoplasma pneumoniae Not detected Parainfluenza Virus 1 Not detected Parainfluenza Virus 2 Not detected Parainfluenza Virus 3 Not detected Parainfluenza Virus 4 Not detected Bordetella pertussis-ptxP Not detected Human Rhino/Enterovirus Detected Resp. Syncytial Virus Not detected COVID-19 Detected/Not Detected Not detected Blank Space -------- FLUA TEST INCLUDES Influenza A tests for the following clinically FLUA TEST INCLUDES significant subtypes: FLUA TEST INCLUDES - Influenza A FLUA TEST INCLUDES - Influenza A H1 FLUA TEST INCLUDES - Influenza A H1 2009 FLUA TEST INCLUDES - Influenza A H3 Blank Space -------- PERFORMED BY: [place] [address] PATHOLOGIST ARCHITECTURE ANALYST MAXIM HERNANDEZ M.D. Normal [facility] Comment on above: Performed By: #### C BC #### [address] Reticulocyte Counton 025 Reticulocyte Number 0.046 10*6/uL Normal 0.024-0.084 [facility] Comment on above: Order Comment: Comme nt Add-on Result Comment: PERF ORMED BY: [place] [address] PATHOLOGIST ARCHITECTURE ANALYST MAXIM HERNANDEZ M.D. Performed By: #### B MP, CBC #### [address] Reticulocyte Percent 1.2 % Normal 0.5-1.5 [facility] Comment on above: Order Comment: Comme nt Add-on Performed By: #### B MP, CBC #### [address] Serum or plasma anion gap de terminationOrdered By: Muna Greene on 05-02-2025 Anion gap [Moles/Vol] 13.8 mmol/L Normal 6.0-15.0 [facility] Comment on above: Performed By: #### B MP, CBC #### [address] Sodium [Moles/volume] in Ser um or PlasmaOrdered By: Muna Greene on 05-02-2025 Sodium [Moles/Vol] 136 mmol/L Normal 136-145 [facility] Comment on above: Performed By: #### B MP, CBC #### [address] Total Iron Binding Capacityo n 05-02-2025 Total Iron Binding Capacity 269 ug/dL Normal 255-450 [facility] Comment on above: Performed By: #### B MP, CBC #### [address] Transferrin [Mass/Vol] 192 mg/dL Low 203-362 [facility] Comment on above: Performed By: #### B MP, CBC #### [address] Troponin I High Sensitivityo n 05-02-2025 Troponin I High Sensitivity 46 High 0-20 [facility] Comment on above: Result Comment: The Troponin units of report have been changed to meet the Chest Pain Accreditation requirement, element EC5.M1l2. Troponin units are changed from pg/ml to ng/L. Also, the decimal is removed and results are in whole numbers. PERFORMED BY: [place] [address] PATHOLOGIST ARCHITECTURE ANALYST MAXIM HERNANDEZ M.D. Performed By: #### M RSA - MSSA PCR #### [address] Troponin I High Sensitivity 46 High 0-20 [facility] Comment on above: Result Comment: The Troponin units of report have been changed to meet the Chest Pain Accreditation requirement, element EC5.M1l2. Troponin units are changed from pg/ml to ng/L. Also, the decimal is removed and results are in whole numbers. PERFORMED BY: [place] [address] PATHOLOGIST ARCHITECTURE ANALYST MAXIM HERNANDEZ M.D. Performed By: #### C BC #### [address] Troponin I High Sensitivity 44 High 0-20 [facility] Comment on above: Result Comment: The Troponin units of report have been changed to meet the Chest Pain Accreditation requirement, element EC5.M1l2. Troponin units are changed from pg/ml to ng/L. Also, the decimal is removed and results are in whole numbers. PERFORMED BY: [place] [address] PATHOLOGIST ARCHITECTURE ANALYST MAXIM HERNANDEZ M.D. Performed By: #### B MP, CBC #### [facility] [address] [place] [address] Troponin I.cardiac [Mass/vol ume] in Serum or Plasma by Detection limit <= 0.01 ng/mLOrdered By: Mell Hou on 05-02-2025 Troponin I.cardiac DL <= 0.01 ng/mL [Mass/Vol] 46 ng/L High 0-20 [facility] Comment on above: The Troponin units o f report have been changed to meet the Chest Pain Accreditation requirement, element EC5.M1l2. Troponin units are changed from pg/ml to ng/L. Also, the decimal is removed and results are in whole numbers. Urea nitrogen [Mass/volume] in Serum or PlasmaOrdered By: Muna Greene on 05-02-2025 Urea nitrogen [Mass/Vol] 17 mg/dL Normal 7-25 [facility] Comment on above: Performed By: #### B MP, CBC #### [facility] [address] [place] [address] Vitamin B12on 05-02-2025 Cobalamin (Vitamin B12) [Mass/Vol] 269 pg/mL Normal 180-914 [facility] Comment on above: Performed By: #### F OL, PT, CBC, BMP, HS TROP, BNP, B12, TIBC, FE, MARI ####[facility] [id number] X-ray reportOrdered By: Brendan Rodriguez on 05-02-2025 Study report [facility] [place] [address] XRay Report Signed Patient: Tristin Powell MR#: [id number] : 1940 Acct:[id number] Age/Sex: 85 / M ADM Date: 5 Loc: ER Room: Type: [facility] ER Attending Dr: Copies to: Muna Greene DO~ Ordering Provider: Muna Greene DO Date of Service: 05/02/25 XR/XR chest 2V*: Upper Respiratory Infection Plain film chest 2 view HISTORY: Cough and congestion. Shortness of breath COMPARISON: None FINDINGS: SUPPORT DEVICES: None POSTSURGICAL CHANGES: CABG. Coronary artery stents HEART: Within normal limits PULMONARY EMIL: Hilar vascular prominence MEDIASTINUM: Unremarkable LUNGS AND PLEURA: Basilar linear scarring/atelectasis. Hyperinflation. No pleural effusion. No pneumothorax. BONY STRUCTURES: Intact ADDITIONAL FINDINGS None XR/XR chest 2V* IMPRESSION: Hilar vascular congestion. basilar linear atelectasis/scarring. Hyperinflation. Impression dictated by: Cristian Rodriguez M.D. 05/02/2025 4:35 PM Dictation Location: [facility] Transcribed By: [facility] 05/02/25 163 Dictated By: Cristian Rodriguez DO 05/02/25 1633 Signed By: 05/02/25 1635 [facility] XR chest 2V*on 05-02-2025 XR chest 2V* [facility] [place] [id number] XRay Report Signed Patient: Tristin Pwoell MR#: [id number] : 1940 Acct:[id number] Age/Sex: 85 / M ADM Date: 05/02/25 Loc: ER Room: Type: [facility] ER Attending Dr: Copies to: Muna Greene DO Ordering Provider: Muna Greene DO Date of Service: 05/02/25 XR/XR chest 2V*: Upper Respiratory Infection Plain film chest 2 view HISTORY: Cough and congestion. Shortness of breath COMPARISON: None FINDINGS: SUPPORT DEVICES: None POSTSURGICAL CHANGES: CABG. Coronary artery stents HEART: Within normal limits PULMONARY EMIL: Hilar vascular prominence MEDIASTINUM: Unremarkable LUNGS AND PLEURA: Basilar linear scarring/atelectasis. Hyperinflation. No pleural effusion. No pneumothorax. BONY STRUCTURES: Intact ADDITIONAL FINDINGS None XR/XR chest 2V* IMPRESSION: Hilar vascular congestion. basilar linear atelectasis/scarring. Hyperinflation. Impression dictated by: Cristian Rodriguez M.D. 05/02/2025 4:35 PM Dictation Location: [place] [address] Transcribed By: [facility] 05/02/25 1635 Dictated By: Cristian Rodriguez DO 05/02/25 1633 Signed By: 05/02/25 1635 Normal [facility] ALL BASIC METABOLIC PANELon 04-30-2025 Anion gap [Moles/Vol] 13.9 mmol/L [facility] Calcium [Mass/Vol] 9.3 mg/dL 8.5 - 10. 1 mg/dL [facility] Chloride [Moles/Vol] 106 mmol/L 98 - 10 7 mmol/L [facility] CO2 [Moles/Vol] 24.9 mmol/L 21.0 - 32.0 mmol/L [facility] Creatinine [Mass/Vol] 1.04 mg/dL 0.70 - 1.30 mg/dL [facility] GFR/1.73 sq M.predicted CKD-EPI (S/P/Bld) [Vol rate/Area] >60 >=60 mL/min/1.73m 2 [facility] Glucose [Mass/Vol] 103 mg/dL 74 - 106 mg/dL [facility] Potassium [Moles/Vol] 4.8 mmol/L 3.5 - 5.1 mmol/L [facility] Sodium [Moles/Vol] 140 mmol/L 136 - 145 mmol/L [facility] TBH EGFR-NON AF SCOTTISH >60 >=60 mL/min/1.73m 2 [facility] Urea nitrogen [Mass/Vol] 13 mg/dL 7.0 - 18.0 mg/dL [facility] Urea nitrogen/Creatinine [Mass ratio] 12.5 mg/mg [facility] ALL C REACTIVE PROTEINon C REACTIVE PROTEIN 3.08 mg/dL High NINF - 0. 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 Plant Production Manager: Ying Fiore RD, RVT Staff Ordering Physician: Mohsen Sarabia MD, [...] Segmental BP RIGHT Brachial A mmH RIGHT SNATH HANDLE ASSEMBLER mmH RIGHT SNATH HANDLE ASSEMBLER Index: 0.96 RIGHT DPA mmH RIGHT DPA Index: 0.92 RIGHT YAMILE Index: 0.96 LEFT Brachial A mmH LEFT SNATH HANDLE ASSEMBLER Index: 0.48 LEFT SNATH HANDLE ASSEMBLER mmH LEFT DPA Index: 0.61 LEFT DPA mmH LEFT YAMILE Index: 0.61 Doppler RIGHT SNATH HANDLE ASSEMBLER Waveform: Multiphasic RIGHT DPA Waveform: Multiphasic LEFT SNATH HANDLE ASSEMBLER Waveform: Monophasic LEFT DPA Waveform: Monophasic , PVR RIGHT Ankle Grade: Abnormal RIGHT Transmetarsal Grade: Abnormal LEFT Ankle Grade: Abnormal Report Signatures Finalized by Nemo Conner MD, PHD, RVT on 04/23/2025 02:41 PM Normal [facility] US DUPLEX LE BYPASS GRAFT CO MPL BILATon 04-23-2025 US DUPLEX LE BYPASS GRAFT COMPL BILAT Patient Info Name: Tristin Powell Age: 85 years : 1940 Gender: Male Exam Date: 04/23/2025 12:53 PM Patient Status: OP SERIES Site Location: [facility] Indications I73.9 - Peripheral vascular disease, unspecified 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 Plant Production Manager: Jigna Vera RDMS, RVT Staff Ordering Physician: [...] Artery Segment: Gabriela LEFT Inflow Artery Segment: ODD JOB WORKER LEFT Inflow Artery PSV: 126 LEFT Inflow [...] MD, RPVI, RVT on 04/23/2025 02:41 PM [facility] XR FOOT RT MIN 3Von 04-16-20 [place] [address] XRay Report Signed Patient: TRISTIN POWELL MR#: [id number] : 1940 Acct:[id number] Age/Sex: 85 / M ADM Date: 04/15/25 Loc: RAD Attending Dr: Savanna Feliz D.P.M. Ordering Physician: Savanna Feliz D.P.M. Date of Service: 04/15/25 Procedure(s): XR foot RT min 3V Accession Number(s): [id number] cc: FLASH LOVELACE ; Savanna Feliz D.P.M. [place] [id number] Patient Name: TRISTIN POWELL MRN: [facility]:[id number] date: 1940 Sex: M Assigned Patient Location: [facility] Current Patient Location: Accession/Order Number: [id number] Exam Date: 04/16/2025 12:46 Report Date: 04/16/2025 [...] Rodriguez M.D. 04/16/2025 12:49 PM Dictation Location: [employer] Electronically authenticated by: [id number] Y Date: 04/16/2025 12:49 Dictated By: Cristian Rodriguez D.O. Signed By: 04/16/25 1252 DD/ 1249 TD/TT: Television News Reporter: [facility] Radiology, Radiologi MD william - 04/16/2025 [place] [address] XRay Report Signed Patient: TRISTIN POWELL MR#: [id number] : 1940 Acct:[id number] Age/Sex: 85 / M ADM Date: 04/15/25 Loc: RAD Attending Dr: Savanna Feliz D.P.M. Ordering Physician: Savanna Feliz D.P.M. Date of Service: 04/15/25 Procedure(s): XR foot RT min 3V Accession Number(s): [id number] cc: FLASH LOVELACE ; Savanna Feliz D.P.M. The [place] [address] Patient Name: TRISTIN POWELL MRN: [facility]:[id number] date: 1940 Sex: M Assigned Patient Location: [facility] Current Patient Location: Accession/Order Number: [id number] Exam Date: 04/16/2025 12:46 Report Date: 04/16/2025 [...] Rodriguez M.D. 04/16/2025 12:49 PM Dictation Location: [place] [address] Electronically authenticated by: [id number] Y Date: 04/16/2025 12:49 Dictated By: Cristian Rodriguez D.O. Signed By: 04/16/25 1257 DD/ 1249 TD/TT: Television News Reporter: [facility] Radiology Study observation (narrative) [facility] XR FOOT RT MIN 3VOrdered By: Radiologist Radiology on 04-16-2025 [facility] Work Phone: ALL CBC WITH AUTO DIFFon BASOPHILS ABSOLUTE AUTO 0 [facility] Basophils/100 WBC (Bld) 0.6 % 0.2 - 2.0 % [facility] Eosinophils/100 WBC (Bld) 5.9 % 0.9 - 7.0 % [facility] Erythrocyte distribution width (RBC) [Ratio] 15.2 % High 11.0 - 15.0 % [facility] Hematocrit (Bld) [Volume fraction] 35.1 % Low 42.0 - 54.0 % [facility] Hemoglobin (Bld) [Mass/Vol] 11.8 g/dL Low 14.0 - 18.0 g/dL [facility] IMMATURE GRANULOCYTES ABS AUTO 0.02 [facility] Immature granulocytes/100 WBC (Bld) 0.6 % High 0.0 - 0.5 % [facility] Interpretation and review of laboratory results Abnormal [facility] LYMPHOCYTES ABSOLUTE AUTO 0.8 Low [facility] Lymphocytes/100 WBC (Bld) 24.1 % 20.5 - 60.0 % [facility] MCH (RBC) [Entitic mass] 31.2 pg 25.9 - 34.0 pg [facility] MCHC (RBC) [Mass/Vol] 33.6 g/dL 29.9 - 35.2 g/dL [facility] MCV (RBC) [Entitic vol] 92.9 fL 80.0 - 94.0 fL [facility] MONOCYTES ABSOLUTE AUTO 0.6 [facility] Monocytes/100 WBC (Bld) 18.9 % High 1.7 - 12.0 % [facility] NEUTROPHILS ABSOLUTE AUTO 1.6 [facility] Neutrophils/100 WBC (Bld) 49.9 % 43.0 - 75.0 % [facility] Platelet mean volume (Bld) [Entitic vol] 8.9 fL Low 9.5 - 13.5 fL [facility] EO # 0.2 [facility] PLT 158 [facility] RBC 3.78 Low [facility] WBC 3.2 Low [facility] MR FOOT RIGHT WO IV CONTRAST [...] VIRUS 1on HERPES SIMPLEX VIRUS 1 0 [facility] HERPES SIMPLEX VIRUS 1 Not detected [facility] HERPES SIMPLEX VIRUS 2 0 [facility] HERPES SIMPLEX VIRUS 2 Not detected [facility] HUMAN MONKEYPOX VIRUS 0 [facility] HUMAN MONKEYPOX VIRUS Not detected N [facility] VARICELLA ZOSTER VIRUS (HUMAN HERPESVIRUS 3) 0 [facility] VARICELLA ZOSTER VIRUS (HUMAN HERPESVIRUS 3) Not detected [facility] BASIC METABOLIC PANELon 07-2 Anion gap [Moles/Vol] 14 mmol/L Normal 10-20 [facility] Comment on above: Order Comment: [facility] has implemented the eGFR calculation approach that does not have a coefficient for race that conforms to the NKF-ASN Task Force Recommendations. Performed By: #### 4 [id number] ####[facility] [address] [place] [address] Emmanuel Plata M.D. [id number] Calcium [Mass/Vol] 9.4 mg/dL Normal 8.4-10.2 [facility] Comment on above: Order Comment: [facility] has implemented the eGFR calculation approach that does not have a coefficient for race that conforms to the NKF-ASN Task Force Recommendations. Performed By: #### 4 6124 ####[facility] [address] [place], [place] [id number] Emmanuel Plata M.D. [id number] Chloride [Moles/Vol] 108 mmol/L Normal 98-108 [facility] Comment on above: Order Comment: [facility] has implemented the eGFR calculation approach that does not have a coefficient for race that conforms to the NKF-ASN Task Force Recommendations. Performed By: #### 4 6124 ####[facility] [address] [place], [place] [id number] Emmanuel Plata M.D. [id number] Creatinine [Mass/Vol] 0.98 mg/dL Normal 0.80-1.30 [facility] Comment on above: Order Comment: [facility] has implemented the eGFR calculation approach that does not have a coefficient for race that conforms to the NKF-ASN Task Force Recommendations. Performed By: #### 4 6124 ####[facility] [address] [place] [address] Emmanuel Plata M.D. [id number] EGFR 75 mL/min/1.73 m2 Normal >=60 [facility] Comment on above: Order Comment: [facility] has implemented the eGFR calculation approach that does not have a coefficient for race that conforms to the NKF-ASN Task Force Recommendations. Result Comment: Maria Del Carmen mated GFR was calculated using the 2020 CKD-EPI creatinine equation. Performed By: #### 4 [id number] ####[facility] [address] [place] [address] Emmanuel Plata M.D. [id number] Glucose [Mass/Vol] 109 mg/dL High 65-99 [facility] Comment on above: Order Comment: [facility] has implemented the eGFR calculation approach that does not have a coefficient for race that conforms to the NKF-ASN Task Force Recommendations. Performed By: #### 4 6124 ####[facility] [address] [place] [address] Emmanuel Plata M.D. [id number] HCO3 (Bld) [Moles/Vol] 22 mmol/L Normal 21-32 [facility] Comment on above: Order Comment: [facility] has implemented the eGFR calculation approach that does not have a coefficient for race that conforms to the NKF-ASN Task Force Recommendations. Performed By: #### 4 6124 ####[facility] [address] [place], [place] [id number] Emmanuel Plata M.D. [id number] Potassium [Moles/Vol] 4.0 mmol/L Normal 3.5-5.1 [facility] Comment on above: Order Comment: [facility] has implemented the eGFR calculation approach that does not have a coefficient for race that conforms to the NKF-ASN Task Force Recommendations. Result Comment: Slig htly Hemolyzed Performed By: #### 4 6112 ####[facility] [address] [place] [address] Emmanuel Plata M.D. [id number] Sodium [Moles/Vol] 140 mmol/L Normal 135-145 [facility] Comment on above: Order Comment: [facility] has implemented the eGFR calculation approach that does not have a coefficient for race that conforms to the NKF-ASN Task Force Recommendations. Performed By: #### 4 61 ####[facility] [address] [place] [address] Emmanuel Plata M.D. [id number] Urea nitrogen [Mass/Vol] 19 mg/dL Normal 8-25 [facility] Comment on above: Order Comment: [facility] has implemented the eGFR calculation approach that does not have a coefficient for race that conforms to the NKF-ASN Task Force Recommendations. Performed By: #### 4 [id number] ####[facility] [address] [place] [address] Emmanuel Plata M.D. [id number] Urea nitrogen/Creatinine [Mass ratio] 19.4 mg/mg Normal 10.0-20.0 [facility] Comment on above: Order Comment: [facility] has implemented the eGFR calculation approach that does not have a coefficient for race that conforms to the NKF-ASN Task Force Recommendations. Performed By: #### 4 [id number] ####[facility] [address] [place] [address] Emmanuel Plata M.D. [id number] Basic metabolic 2000 panelOr dered By: Beka Aiken on 03-21-2025 Anion gap [Moles/Vol] 14 mmol/L 10 - 2 0 mmol/L [facility] Calcium [Mass/Vol] 9.4 mg/dL 8.4 - 10. 2 mg/dL [facility] Chloride [Moles/Vol] 108 mmol/L 98 - 10 8 mmol/L [facility] Creatinine [Mass/Vol] 0.98 mg/dL 0.80 - 1.30 mg/dL [facility] GFR/1.73 sq M.predicted CKD-EPI (S/P/Bld) [Vol rate/Area] 75 - PINF [facility] Comment on above: Estimated GFR was ca lculated using the 2020 CKD-EPI creatinine equation. Glucose [Mass/Vol] 109 mg/dL High 65 - 99 mg/dL [facility] HCO3 [Moles/Vol] 22 mmol/L 21 - 32 mmol/L [facility] Interpretation and review of laboratory results Abnormal [facility] Potassium [Moles/Vol] 4 mmol/L 3.5 - 5.1 mmol/L [facility] Comment on above: Slightly Hemolyzed Sodium [Moles/Vol] 140 mmol/L 135 - 145 mmol/L [facility] Urea nitrogen [Mass/Vol] 19 mg/dL 8 - 25 mg/dL [facility] Urea nitrogen/Creatinine [Mass ratio] 19.4 mg/mg 10.0 - 20.0 [facility] y Services has implemented the eGFR calculation approach that does not have a coefficient for race that conforms to the NKF-ASN Task Force Recommendations. [facility] CBCon 03-21-2025 AUTO NRBC 0.0 % Normal [facility] Comment on above: Performed By: #### 4 [id number] #### [facility] [address] [place] [address] Emmanuel Plata M.D. [id number] AUTO NRBC ABS COUNT 0.00 K/mcL Normal 0.00-0.00 [facility] Comment on above: Performed By: #### 4 [id number] #### [facility] [address] [place] [address] Emmanuel Plata M.D. [id number] Erythrocyte distribution width (RBC) [Ratio] 13.7 % Normal 11.6-14.8 [facility] Comment on above: Performed By: #### 4 [id number] #### [facility] [address] [place] [address] Emmanuel Plata M.D. [id number] Hematocrit (Bld) [Volume fraction] 30.0 % Low 41.0-53.0 [facility] Comment on above: Performed By: #### 4 [id number] #### [facility] [address] [place] [address] Emmanuel Plata M.D. [id number] Hemoglobin (Bld) [Mass/Vol] 10.5 g/dL Low 13.5-17.5 [facility] Comment on above: Performed By: #### 4 [id number] #### [facility] [address] [place] [address] Emmanuel Plata M.D. [id number] MCH (RBC) [Entitic mass] 33.2 pg Normal 26.0-34.0 [facility] Comment on above: Performed By: #### 4 [id number] #### [facility] [address] [place] [address] Emmanuel Plata M.D. [id number] MCV (RBC) [Entitic vol] 94.9 fL Normal 80.0-100.0 [facility] Comment on above: Performed By: #### 4 [id number] #### [facility] [address] [place] [address] Emmanuel Plata M.D. [id number] MEAN CORPUSCULAR HEMOGLOBIN CONC 35.0 g/dL Normal 31.0-37.0 [facility] Comment on above: Performed By: #### 4 [id number] #### [facility] [address] [place] [address] Emmanuel Plata M.D. [id number] Platelet mean volume (Bld) [Entitic vol] 9.7 fL Normal 9.4-12.4 [facility] Comment on above: Performed By: #### 4 [id number] #### [facility] [address] [place] [address] Emmanuel Plata M.D. [id number] Platelets (Bld) [#/Vol] 213 10*3/uL Normal 150-400 [facility] Comment on above: Performed By: #### 4 [id number] #### [facility] [address] [place] [address] Emmanuel Plata M.D. [id number] RBC (Bld) [#/Vol] 3.16 10*6/uL Low 4.50-5.90 [facility] Comment on above: Performed By: #### 4 [id number] #### [facility] [address] [place], [place] [id number] Emmanuel Plata M.D. [id number] WBC (Bld) [#/Vol] 4.33 10*3/uL Low 4.50-11.00 [facility] Comment on above: Performed By: #### 4 [id number] #### [facility] [address] [place], [place] [id number] Emmanuel Plata M.D. [id number] CBC panel Auto (Bld)on 03-21 Erythrocyte distribution width (RBC) [Entitic vol] 13.7 % 11.6 - 14.8 % [facility] Hematocrit (Bld) [Volume fraction] 30 % Low 41.0 - 53.0 % [facility] Hemoglobin (Bld) [Mass/Vol] 10.5 g/dL Low 13.5 - 17.5 g/dL [facility] Interpretation and review of laboratory results Abnormal [facility] MCH (RBC) [Entitic mass] 33.2 pg 26.0 - 34.0 pg [facility] MCHC (RBC) [Mass/Vol] 35 g/dL 31.0 - 37.0 g/dL [facility] MCV (RBC) [Entitic vol] 94.9 fL 80.0 - 100.0 fL [facility] Nucleated RBC (Bld) [#/Vol] 0 10*3/uL [facility] Nucleated RBC/100 WBC (Bld) [Ratio] 0 % [facility] Platelet mean volume (Bld) [Entitic vol] 9.7 fL 9.4 - 12.4 fL [facility] Platelets (Bld) [#/Vol] 213 10*3/uL [facility] RBC (Bld) [#/Vol] 3.16 10*6/uL Low [facility] WBC (Bld) [#/Vol] 4.33 10*3/uL Low [facility] MAGNESIUM LEVELon 03-21-2025 Magnesium [Mass/Vol] 2.1 mg/dL Normal 1.6-2.4 [facility] Comment on above: Performed By: #### 4 6848 #### [facility] [address] [place], [place] [address] Emmanuel Plata M.D. [id number] Magnesiumon 03-21-2025 Magnesium [Mass/Vol] 2.1 mg/dL 1.6 - 2 .4 mg/dL [facility] Magnesium [Mass/Vol]on 03-21 Interpretation and review of laboratory results Normal [facility] No Panel Informationon 03-21 [facility] BASIC METABOLIC PANELon 02-26 Anion gap [Moles/Vol] 14 mmol/L Normal 10-20 [facility] Comment on above: Order Comment: [facility] has implemented the eGFR calculation approach that does not have a coefficient for race that conforms to the NKF-ASN Task Force Recommendations. Performed By: #### 4 [id number] #### [facility] [address] [place] [address] Emmanuel Plata M.D. [id number] Calcium [Mass/Vol] 8.5 mg/dL Normal 8.4-10.2 [facility] Comment on above: Order Comment: [facility] has implemented the eGFR calculation approach that does not have a coefficient for race that conforms to the NKF-ASN Task Force Recommendations. Performed By: #### 4 [id number] #### [facility] [address] [place] [address] Emmanuel Plata M.D. [id number] Chloride [Moles/Vol] 107 mmol/L Normal 98-108 [facility] Comment on above: Order Comment: [facility] has implemented the eGFR calculation approach that does not have a coefficient for race that conforms to the NKF-ASN Task Force Recommendations. Performed By: #### 4 [id number] #### [facility] [address] [place] [address] Emmanuel Plata M.D. [id number] Creatinine [Mass/Vol] 0.97 mg/dL Normal 0.80-1.30 [facility] Comment on above: Order Comment: [facility] has implemented the eGFR calculation approach that does not have a coefficient for race that conforms to the NKF-ASN Task Force Recommendations. Performed By: #### 4 [id number] #### [facility] [address] [place] [address] Emmanuel Plata M.D. [id number] EGFR 76 mL/min/1.73 m2 Normal >=60 [facility] Comment on above: Order Comment: [facility] has implemented the eGFR calculation approach that does not have a coefficient for race that conforms to the NKF-ASN Task Force Recommendations. Result Comment: Maria Del Carmen mated GFR was calculated using the 2020 CKD-EPI creatinine equation. Performed By: #### 4 [id number] #### [facility] [address] [place] [address] Emmanuel Plata M.D. [id number] Glucose [Mass/Vol] 97 mg/dL Normal 65-99 [facility] Comment on above: Order Comment: [facility] has implemented the eGFR calculation approach that does not have a coefficient for race that conforms to the NKF-ASN Task Force Recommendations. Performed By: #### 4 [id number] #### [facility] [address] [place] [address] Emmanuel Plata M.D. [id number] HCO3 (Bld) [Moles/Vol] 22 mmol/L Normal 21-32 [facility] Comment on above: Order Comment: [facility] has implemented the eGFR calculation approach that does not have a coefficient for race that conforms to the NKF-ASN Task Force Recommendations. Performed By: #### 4 [id number] #### [facility] [address] [place] [address] Emmanuel Plata M.D. [id number] Potassium [Moles/Vol] 4.1 mmol/L Normal 3.5-5.1 [facility] Comment on above: Order Comment: [facility] has implemented the eGFR calculation approach that does not have a coefficient for race that conforms to the NKF-ASN Task Force Recommendations. Performed By: #### 4 [id number] #### [facility] [address] [place] [address] Emmanuel Plata M.D. [id number] Sodium [Moles/Vol] 139 mmol/L Normal 135-145 [facility] Comment on above: Order Comment: [facility] has implemented the eGFR calculation approach that does not have a coefficient for race that conforms to the NKF-ASN Task Force Recommendations. Performed By: #### 4 [id number] #### [facility] [address] [place] [address] Emmanuel Plata M.D. [id number] Urea nitrogen [Mass/Vol] 20 mg/dL Normal 8-25 [facility] Comment on above: Order Comment: [facility] has implemented the eGFR calculation approach that does not have a coefficient for race that conforms to the NKF-ASN Task Force Recommendations. Performed By: #### 4 [id number] #### [facility] [address] [place] [address] Emmanuel Plata M.D. [id number] Urea nitrogen/Creatinine [Mass ratio] 20.6 mg/mg High 10.0-20.0 [facility] Comment on above: Order Comment: [facility] has implemented the eGFR calculation approach that does not have a coefficient for race that conforms to the NKF-ASN Task Force Recommendations. Performed By: #### 4 [id number] #### [facility] [address] [place] [address] Emmanuel Plata M.D. [id number] Basic metabolic 2000 panelon 03-20-2025 Anion gap [Moles/Vol] 14 mmol/L 10 - 2 0 mmol/L [facility] Calcium [Mass/Vol] 8.5 mg/dL 8.4 - 10. 2 mg/dL [facility] Chloride [Moles/Vol] 107 mmol/L 98 - 10 8 mmol/L [facility] Creatinine [Mass/Vol] 0.97 mg/dL 0.80 - 1.30 mg/dL [facility] GFR/1.73 sq M.predicted CKD-EPI (S/P/Bld) [Vol rate/Area] 76 - PINF [facility] Comment on above: Estimated GFR was ca lculated using the 2020 CKD-EPI creatinine equation. Glucose [Mass/Vol] 97 mg/dL 65 - 99 mg/dL [facility] HCO3 [Moles/Vol] 22 mmol/L 21 - 32 mmol/L [facility] Interpretation and review of laboratory results Abnormal [facility] Potassium [Moles/Vol] 4.1 mmol/L 3.5 - 5.1 mmol/L [facility] Sodium [Moles/Vol] 139 mmol/L 135 - 145 mmol/L [facility] Urea nitrogen [Mass/Vol] 20 mg/dL 8 - 25 mg/dL [facility] Urea nitrogen/Creatinine [Mass ratio] 20.6 mg/mg High 10.0 - 20.0 [facility] Services has implemented the eGFR calculation approach that does not have a coefficient for race that conforms to the NKF-ASN Task Force Recommendations. [facility] CBCon 03-20-2025 AUTO NRBC 0.0 % Normal [facility] Comment on above: Performed By: #### 4 [id number] #### [facility] [address] [place], [place] [id number] Emmanuel Plata M.D. [id number] AUTO NRBC ABS COUNT 0.00 K/mcL Normal 0.00-0.00 [facility] Comment on above: Performed By: #### 4 [id number] #### [facility] [address] [place] [address] Emmanuel Plata M.D. [id number] Erythrocyte distribution width (RBC) [Ratio] 13.8 % Normal 11.6-14.8 [facility] Comment on above: Performed By: #### 4 [id number] #### [facility] [address] [place], [place] [id number] Emmanuel Plata M.D. [id number] Hematocrit (Bld) [Volume fraction] 29.1 % Low 41.0-53.0 [facility] Comment on above: Performed By: #### 4 [id number] #### [facility] [address] [place], [place] [id number] Emmanuel Plata M.D. [id number] Hemoglobin (Bld) [Mass/Vol] 10.0 g/dL Low 13.5-17.5 [facility] Comment on above: Performed By: #### 4 [id number] #### [facility] [address] [place], [place] [address]Nessa Plata M.D. [id number] MCH (RBC) [Entitic mass] 33.3 pg Normal 26.0-34.0 [facility] Comment on above: Performed By: #### 4 [id number] #### [facility] [address] [place], [place] [id number] Emmanuel Plata M.D. [id number] MCV (RBC) [Entitic vol] 97.0 fL Normal 80.0-100.0 [facility] Comment on above: Performed By: #### 4 [id number] #### [facility] [address] [place] [address] Emmanuel Plata M.D. [id number] MEAN CORPUSCULAR HEMOGLOBIN CONC 34.4 g/dL Normal 31.0-37.0 [facility] Comment on above: Performed By: #### 4 [id number] #### [facility] [address] [place] [address] Emmanuel Plata M.D. [id number] Platelet mean volume (Bld) [Entitic vol] 9.8 fL Normal 9.4-12.4 [facility] Comment on above: Performed By: #### 4 [id number] #### [facility] [address] [place], [place] [id number] Emmanuel Plata M.D. [id number] Platelets (Bld) [#/Vol] 167 10*3/uL Normal 150-400 [facility] Comment on above: Performed By: #### 4 [id number] #### [facility] [address] [place], [place] [id number] Emmanuel Plata M.D. [id number] RBC (Bld) [#/Vol] 3.00 10*6/uL Low 4.50-5.90 [facility] Comment on above: Performed By: #### 4 [id number] #### [facility] [address] [place], [place] [id number] Emmanuel Plata M.D. [id number] WBC (Bld) [#/Vol] 4.86 10*3/uL Normal 4.50-11.00 [facility] Comment on above: Performed By: #### 4 [id number] #### [facility] [address] [place] [address] Emmanuel Plata M.D. [id number] CBC panel Auto (Bld)on 03-20 Erythrocyte distribution width (RBC) [Entitic vol] 13.8 % 11.6 - 14.8 % [facility] Hematocrit (Bld) [Volume fraction] 29.1 % Low 41.0 - 53.0 % [facility] Hemoglobin (Bld) [Mass/Vol] 10 g/dL Low 13.5 - 17.5 g/dL [facility] Interpretation and review of laboratory results Abnormal [facility] MCH (RBC) [Entitic mass] 33.3 pg 26.0 - 34.0 pg [facility] MCHC (RBC) [Mass/Vol] 34.4 g/dL 31.0 - 37.0 g/dL [facility] MCV (RBC) [Entitic vol] 97 fL 80.0 - 100.0 fL [facility] Nucleated RBC (Bld) [#/Vol] 0 10*3/uL [facility] Nucleated RBC/100 WBC (Bld) [Ratio] 0 % [facility] Platelet mean volume (Bld) [Entitic vol] 9.8 fL 9.4 - 12.4 fL [facility] Platelets (Bld) [#/Vol] 167 10*3/uL [facility] RBC (Bld) [#/Vol] 3 10*6/uL Low [facility] WBC (Bld) [#/Vol] 4.86 10*3/uL [facility] MAGNESIUM LEVELon 03-20-2025 Magnesium [Mass/Vol] 2.2 mg/dL Normal 1.6-2.4 [facility] Comment on above: Performed By: #### 4 [id number] #### [facility] [address] [place] [id number] Emmanuel Plata M.D. [id number] Magnesiumon 03-20-2025 Magnesium [Mass/Vol] 2.2 mg/dL 1.6 - 2 .4 mg/dL [facility] Magnesium [Mass/Vol]on 03-20 Interpretation and review of laboratory results Normal [facility] No Panel Informationon 03-20 [facility] US ANKLE/BRACHIAL INDICES EX TREMITY LIMITEDon 03-20-2025 US ANKLE/BRACHIAL INDICES EXTREMITY LIMITED Patient Info Name: Tristin Powell Age: 85 years : 1940 Gender: Male Exam Date: 03/20/2025 8:42 AM Patient Status: INPATIENT Site Location: [facility] Indications I73.9 - Peripheral vascular disease, unspecified Procedure Description 43506 Limited bilateral noninvasive physiologic studies of upper or lower extremity arteries with bidirectional Doppler/PVR waveform analysis at 1-2 levels. Plant Production Manager: Maggy Dempsey RVT Staff Ordering Physician: Beena [...] Segmental BP RIGHT Brachial A mmH RIGHT SNATH HANDLE ASSEMBLER mmH RIGHT SNATH HANDLE ASSEMBLER Index: 0.53 RIGHT DPA mmH RIGHT DPA Index: 0.57 RIGHT Digit mmH RIGHT YAMILE Index: 0.57 RIGHT TBI Index: 0.00 LEFT SNATH HANDLE ASSEMBLER Index: 0.36 LEFT SNATH HANDLE ASSEMBLER mmH LEFT DPA Index: 0.41 LEFT DPA mmH LEFT YAMILE Index: 0.41 Doppler RIGHT SNATH HANDLE ASSEMBLER Waveform: Monophasic RIGHT DPA Waveform: Monophasic LEFT SNATH HANDLE ASSEMBLER Waveform: Monophasic LEFT DPA Waveform: Monophasic , PVR RIGHT Ankle Grade: Abnormal RIGHT Transmetarsal Grade: Abnormal RIGHT Digit (PPG) Grade: Absent LEFT Ankle Grade: Abnormal Prior Interventions 03/17/2025 right femoral and tibial bypass graft-. 03/17/2025 right femoral and tibial Report Signatures Finalized by Sylvia Meyer MD, RPVI, FSIR on 03/20/2025 09:40 AM Normal [facility] US ANKLE/BRACHIAL INDICES EXTREMITY LIMITED Patient Info Name: Tristin Powell Age: 85 years : 1940 Gender: Male Exam Date: 03/20/2025 8:42 AM Patient Status: INPATIENT Site Location: [facility] Indications I73.9 - Peripheral vascular disease, unspecified Procedure Description 72261 Limited bilateral noninvasive physiologic studies of upper or lower extremity arteries with bidirectional Doppler/PVR waveform analysis at 1-2 levels. Plant Production Manager: Maggy Dempsey T Staff Ordering Physician: Beena [...] Segmental BP RIGHT Brachial A mmH RIGHT SNATH HANDLE ASSEMBLER mmH RIGHT SNATH HANDLE ASSEMBLER Index: 0.53 RIGHT DPA mmH RIGHT DPA Index: 0.57 RIGHT Digit mmH RIGHT YAMILE Index: 0.57 RIGHT TBI Index: 0.00 LEFT SNATH HANDLE ASSEMBLER Index: 0.36 LEFT SNATH HANDLE ASSEMBLER mmH LEFT DPA Index: 0.41 LEFT DPA mmH LEFT YAMILE Index: 0.41 Doppler RIGHT SNATH HANDLE ASSEMBLER Waveform: Monophasic RIGHT DPA Waveform: Monophasic LEFT SNATH HANDLE ASSEMBLER Waveform: Monophasic LEFT DPA Waveform: Monophasic , [...] MonMar 20, 2025 9:40:58 AM EDT Normal [facility] US Doppler ankle/brachial in dexon 03-20-2025 Patient Info Name: Tristin Powell Age: 85 years : 1940 Gender: Male Exam Date: 03/20/2025 8:42 AM Patient Status: INPATIENT Site Location: [facility] Indications I73.9 - Peripheral vascular disease, unspecified Procedure Description 26293 Limited bilateral noninvasive physiologic studies of upper or lower extremity arteries with bidirectional Doppler/PVR waveform analysis at 1-2 levels. Plant Production Manager: Maggy Dempsey T Staff Ordering Physician: Beena [...] Segmental BP RIGHT Brachial A mmH RIGHT SNATH HANDLE ASSEMBLER mmH RIGHT SNATH HANDLE ASSEMBLER Index: 0.53 RIGHT DPA mmH RIGHT DPA Index: 0.57 RIGHT Digit mmH RIGHT YAMILE Index: 0.57 RIGHT TBI Index: 0.00 LEFT SNATH HANDLE ASSEMBLER Index: 0.36 LEFT SNATH HANDLE ASSEMBLER mmH LEFT DPA Index: 0.41 LEFT DPA mmH LEFT YAMILE Index: 0.41 Doppler RIGHT SNATH HANDLE ASSEMBLER Waveform: Monophasic RIGHT DPA Waveform: Monophasic LEFT SNATH HANDLE ASSEMBLER Waveform: Monophasic LEFT DPA Waveform: Monophasic , PVR RIGHT Ankle Grade: Abnormal RIGHT Transmetarsal Grade: Abnormal RIGHT Digit (PPG) Grade: Absent LEFT Ankle Grade: Abnormal Prior Interventions 03/17/2025 right femoral and tibial bypass graft-. 03/17/2025 right femoral and tibial Report Signatures Finalized by Sylvia Meyer MD, RPVI, FSIR on 03/20/2025 09:40 AM [facility] Sylvia Meyer MD - 03/20/2025 Patient Info Name: Tristin Powell Age: 85 years : 1940 Gender: Male Exam Date: 03/20/2025 8:42 AM Patient Status: INPATIENT Site Location: [facility] Indications I73.9 - Peripheral vascular disease, unspecified Procedure Description 09576 Limited bilateral noninvasive physiologic studies of upper or lower extremity arteries with bidirectional Doppler/PVR waveform analysis at 1-2 levels. Plant Production Manager: Maggy Dempsey T Staff Ordering Physician: Beena [...] Segmental BP RIGHT Brachial A mmH RIGHT SNATH HANDLE ASSEMBLER mmH RIGHT SNATH HANDLE ASSEMBLER Index: 0.53 RIGHT DPA mmH RIGHT DPA Index: 0.57 RIGHT Digit mmH RIGHT YAMILE Index: 0.57 RIGHT TBI Index: 0.00 LEFT SNATH HANDLE ASSEMBLER Index: 0.36 LEFT SNATH HANDLE ASSEMBLER mmH LEFT DPA Index: 0.41 LEFT DPA mmH LEFT YAMILE Index: 0.41 Doppler RIGHT SNATH HANDLE ASSEMBLER Waveform: Monophasic RIGHT DPA Waveform: Monophasic LEFT SNATH HANDLE ASSEMBLER Waveform: Monophasic LEFT DPA Waveform: Monophasic , PVR RIGHT Ankle Grade: Abnormal RIGHT Transmetarsal Grade: Abnormal RIGHT Digit (PPG) Grade: Absent LEFT Ankle Grade: Abnormal Prior Interventions 03/17/2025 right femoral and tibial bypass graft-. 03/17/2025 right femoral and tibial Report Signatures Finalized by Sylvia Meyer MD, RPVI, FSIR on 03/20/2025 09:40 AM [facility] BASIC METABOLIC PANELon - Anion gap [Moles/Vol] 13 mmol/L Normal 10-20 [facility] Comment on above: Order Comment: Thera peutic range for APTT's is 68 - 104 seconds Performed By: #### 4 2052 #### [facility] [address] [place] [address] Emmanuel Plata M.D. [id number] Calcium [Mass/Vol] 9.0 mg/dL Normal 8.4-10.2 [facility] Comment on above: Order Comment: Thera peutic range for APTT's is 68 - 104 seconds Performed By: #### 4 6848 #### [facility] [address] [place], [place] [id number] Emmanuel Plata M.D. [id number] Chloride [Moles/Vol] 108 mmol/L Normal 98-108 [facility] Comment on above: Order Comment: Thera peutic range for APTT's is 68 - 104 seconds Performed By: #### 4 6859 #### [facility] [address] [place], [place] [id number] Emmanuel Plata M.D. [id number] Creatinine [Mass/Vol] 1.12 mg/dL Normal 0.80-1.30 [facility] Comment on above: Order Comment: Thera peutic range for APTT's is 68 - 104 seconds Performed By: #### 4 6870 #### [facility] [address] [place], [place] [id number] Emmanuel Plata M.D. [id number] EGFR 64 mL/min/1.73 m2 Normal >=60 [facility] Comment on above: Order Comment: Thera peutic range for APTT's is 68 - 104 seconds Result Comment: Maria Del Carmen mated GFR was calculated using the 2020 CKD-EPI creatinine equation. Performed By: #### 4 6840 #### [facility] [address] [place] [address]18 Emmanuel Plata M.D. [id number] Glucose [Mass/Vol] 109 mg/dL High 65-99 [facility] Comment on above: Order Comment: Thera peutic range for APTT's is 68 - 104 seconds Performed By: #### 4 9354 #### [facility] [address] [place] [address] 217[address] Emmanuel Plata M.D. [id number] HCO3 (Bld) [Moles/Vol] 24 mmol/L Normal 21-32 [facility] Comment on above: Order Comment: Thera peutic range for APTT's is 68 - 104 seconds Performed By: #### 4 9245 #### [facility] [address] [place] [address] Emmanuel Plata M.D. [id number] Potassium [Moles/Vol] 5.0 mmol/L Normal 3.5-5.1 [facility] Comment on above: Order Comment: Thera peutic range for APTT's is 68 - 104 seconds Result Comment: Slig htly Hemolyzed Performed By: #### 4 6668 #### [facility] [address] [place] [address] Emmanuel Plata M.D. [id number] Sodium [Moles/Vol] 140 mmol/L Normal 135-145 [facility] Comment on above: Order Comment: Thera peutic range for APTT's is 68 - 104 seconds Performed By: #### 4 9441 #### [facility] [address] [place], [place] [id number] Emmanuel Plata M.D. [id number] Urea nitrogen [Mass/Vol] 22 mg/dL Normal 8-25 [facility] Comment on above: Order Comment: Thera peutic range for APTT's is 68 - 104 seconds Performed By: #### 4 5047 #### [facility] [address] [place], [place] [id number] Emmanuel Plata M.D. [id number] Urea nitrogen/Creatinine [Mass ratio] 19.6 mg/mg Normal 10.0-20.0 [facility] Comment on above: Order Comment: Thera peutic range for APTT's is 68 - 104 seconds Performed By: #### 6 5609 #### [facility] [address] [place] [address] Emmanuel Plata M.D. [id number] Basic metabolic 2000 panelOr dered By: Larry Brady on 03-19-2025 Anion gap [Moles/Vol] 13 mmol/L 10 - 2 0 mmol/L [facility] Calcium [Mass/Vol] 9 mg/dL 8.4 - 10. 2 mg/dL [facility] Chloride [Moles/Vol] 108 mmol/L 98 - 10 8 mmol/L [facility] Creatinine [Mass/Vol] 1.12 mg/dL 0.80 - 1.30 mg/dL [facility] GFR/1.73 sq M.predicted CKD-EPI (S/P/Bld) [Vol rate/Area] 64 - PINF [facility] Comment on above: Estimated GFR was ca lculated using the 2020 CKD-EPI creatinine equation. Glucose [Mass/Vol] 109 mg/dL High 65 - 99 mg/dL [facility] HCO3 [Moles/Vol] 24 mmol/L 21 - 32 mmol/L [facility] Interpretation and review of laboratory results Abnormal [facility] Potassium [Moles/Vol] 5 mmol/L 3.5 - 5.1 mmol/L [facility] Comment on above: Slightly Hemolyzed Sodium [Moles/Vol] 140 mmol/L 135 - 145 mmol/L [facility] Urea nitrogen [Mass/Vol] 22 mg/dL 8 - 25 mg/dL [facility] Urea nitrogen/Creatinine [Mass ratio] 19.6 mg/mg 10.0 - 20.0 [facility] Services has implemented the eGFR calculation approach that does not have a coefficient for race that conforms to the NKF-ASN Task Force Recommendations. [facility] CBCon 03-19-2025 AUTO NRBC 0.0 % Normal [facility] Comment on above: Performed By: #### 4 [id number] #### [facility] [address] [place] [address] Emmanuel Plata M.D. [id number] AUTO NRBC ABS COUNT 0.00 K/mcL Normal 0.00-0.00 [facility] Comment on above: Performed By: #### 4 [id number] #### [facility] [address] [place] [address]67[address] Emmanuel Plata M.D. [id number] Erythrocyte distribution width (RBC) [Ratio] 14.5 % Normal 11.6-14.8 [facility] Comment on above: Performed By: #### 4 [id number] #### [facility] [address] [place] [address] Emmanuel Plata M.D. [id number] Hematocrit (Bld) [Volume fraction] 27.8 % Low 41.0-53.0 [facility] Comment on above: Performed By: #### 4 [id number] #### [facility] [address] [place] [address] Emmanuel Plata M.D. [id number] Hemoglobin (Bld) [Mass/Vol] 10.4 g/dL Low 13.5-17.5 [facility] Comment on above: Performed By: #### 4 [id number] #### [facility] [address] [place] [address] Emmanuel Plata M.D. [id number] MCH (RBC) [Entitic mass] 36.1 pg High 26.0-34.0 [facility] Comment on above: Performed By: #### 4 [id number] #### [facility] [address] [place] [address] Emmanuel Plata M.D. [id number] MCV (RBC) [Entitic vol] 96.5 fL Normal 80.0-100.0 [facility] Comment on above: Performed By: #### 4 [id number] #### [facility] [address] [place] [address] Emmanuel Plata M.D. [id number] MEAN CORPUSCULAR HEMOGLOBIN CONC 37.4 g/dL High 31.0-37.0 [facility] Comment on above: Performed By: #### 4 [id number] #### [facility] [address] [place] [address] Emmanuel Plata M.D. [id number] Platelet mean volume (Bld) [Entitic vol] 9.6 fL Normal 9.4-12.4 [facility] Comment on above: Performed By: #### 4 [id number] #### [facility] [address] [place] [address] Emmanuel Plata M.D. [id number] Platelets (Bld) [#/Vol] 148 10*3/uL Low 150-400 [facility] Comment on above: Performed By: #### 4 [id number] #### [facility] [address] [place], [place] [id number] Emmanuel Plata M.D. [id number] RBC (Bld) [#/Vol] 2.88 10*6/uL Low 4.50-5.90 [facility] Comment on above: Performed By: #### 4 [id number] #### [facility] [address] [place], [place] [id number] Emmanuel Plata M.D. [id number] WBC (Bld) [#/Vol] 4.34 10*3/uL Low 4.50-11.00 [facility] Comment on above: Performed By: #### 4 [id number] #### [facility] [address] [place] [address] Emmanuel Plata M.D. [id number] CBC panel Auto (Bld)on 03-19 Erythrocyte distribution width (RBC) [Entitic vol] 14.5 % 11.6 - 14.8 % [facility] Hematocrit (Bld) [Volume fraction] 27.8 % Low 41.0 - 53.0 % [facility] Hemoglobin (Bld) [Mass/Vol] 10.4 g/dL Low 13.5 - 17.5 g/dL [facility] Interpretation and review of laboratory results Abnormal [facility] MCH (RBC) [Entitic mass] 36.1 pg High 26.0 - 34.0 pg [facility] MCHC (RBC) [Mass/Vol] 37.4 g/dL High 31.0 - 37.0 g/dL [facility] MCV (RBC) [Entitic vol] 96.5 fL 80.0 - 100.0 fL [facility] Nucleated RBC (Bld) [#/Vol] 0 10*3/uL [facility] Nucleated RBC/100 WBC (Bld) [Ratio] 0 % [facility] Platelet mean volume (Bld) [Entitic vol] 9.6 fL 9.4 - 12.4 fL [facility] Platelets (Bld) [#/Vol] 148 10*3/uL Low [facility] RBC (Bld) [#/Vol] 2.88 10*6/uL Low [facility] WBC (Bld) [#/Vol] 4.34 10*3/uL Low [facility] MAGNESIUM LEVELon 03-19-2025 Magnesium [Mass/Vol] 2.4 mg/dL Normal 1.6-2.4 [facility] Comment on above: Performed By: #### 4 6109 #### [facility] [address] [place] [address] 16335 Emmanuel Plata M.D. [id number] Magnesiumon 03-19-2025 Magnesium [Mass/Vol] 2.4 mg/dL 1.6 - 2 .4 mg/dL [facility] Magnesium [Mass/Vol]on 03-19 Interpretation and review of laboratory results Normal [facility] No Panel InformationOrdered By: Larry Brady on 03-19-2025 [facility] BASIC METABOLIC PANELon 02-26 Anion gap [Moles/Vol] 16 mmol/L Normal 10-20 [facility] Comment on above: Order Comment: [facility] Services has implemented the eGFR calculation approach that does not have a coefficient for race that conforms to the NKF-ASN Task Force Recommendations. Performed By: #### 4 [id number] #### [facility] [address] [place] [address] 71097 Emmanuel Pltaa M.D. [id number] Calcium [Mass/Vol] 8.2 mg/dL Low 8.4-10.2 [facility] Comment on above: Order Comment: [facility] has implemented the eGFR calculation approach that does not have a coefficient for race that conforms to the NKF-ASN Task Force Recommendations. Performed By: #### 4 [id number] #### [facility] [address] [place] [address] 18910 Emmanuel Plata M.D. [id number] Chloride [Moles/Vol] 109 mmol/L High 98-108 [facility] Comment on above: Order Comment: [facility] has implemented the eGFR calculation approach that does not have a coefficient for race that conforms to the NKF-ASN Task Force Recommendations. Performed By: #### 4 [id number] #### [facility] [address] [place] [address]1980 Emmanuel Plata M.D. [id number] Creatinine [Mass/Vol] 1.05 mg/dL Normal 0.80-1.30 [facility] Comment on above: Order Comment: [facility] has implemented the eGFR calculation approach that does not have a coefficient for race that conforms to the NKF-ASN Task Force Recommendations. Performed By: #### 4 [id number] #### [facility] [address] [place] [address]182 Emmanuel Plata M.D. [id number] EGFR 69 mL/min/1.73 m2 Normal >=60 [facility] Comment on above: Order Comment: [facility] has implemented the eGFR calculation approach that does not have a coefficient for race that conforms to the NKF-ASN Task Force Recommendations. Result Comment: Maria Del Carmen mated GFR was calculated using the 2020 CKD-EPI creatinine equation. Performed By: #### 4 [id number] #### [facility] [address] [place] [address] Emmanuel Plata M.D. [id number] Glucose [Mass/Vol] 111 mg/dL High 65-99 [facility] Comment on above: Order Comment: [facility] has implemented the eGFR calculation approach that does not have a coefficient for race that conforms to the NKF-ASN Task Force Recommendations. Performed By: #### 4 [id number] #### [facility] [address] [place] [address] 39557 Emmanuel Plata M.D. [id number] HCO3 (Bld) [Moles/Vol] 19 mmol/L Low 21-32 [facility] Comment on above: Order Comment: [facility] Services has implemented the eGFR calculation approach that does not have a coefficient for race that conforms to the NKF-ASN Task Force Recommendations. Performed By: #### 4 [id number] #### [facility] [address] [place] [address] 62051 Emmanuel Plata M.D. [id number] Potassium [Moles/Vol] 4.1 mmol/L Normal 3.5-5.1 [facility] Comment on above: Order Comment: [facility] has implemented the eGFR calculation approach that does not have a coefficient for race that conforms to the NKF-ASN Task Force Recommendations. Result Comment: Slig htly Hemolyzed Performed By: #### 4 [id number] #### [facility] [address] [place] [address] 32273 Emmanuel Plata M.D. [id number] Sodium [Moles/Vol] 140 mmol/L Normal 135-145 [facility] Comment on above: Order Comment: [facility] has implemented the eGFR calculation approach that does not have a coefficient for race that conforms to the NKF-ASN Task Force Recommendations. Performed By: #### 4 [id number] #### [facility] [address] [place] [address]238 Emmanuel Plata M.D. [id number] Urea nitrogen [Mass/Vol] 18 mg/dL Normal 8-25 [facility] Comment on above: Order Comment: [facility] Services has implemented the eGFR calculation approach that does not have a coefficient for race that conforms to the NKF-ASN Task Force Recommendations. Performed By: #### 4 [id number] #### [facility] [address] [place], [place] [address] Emmanuel Plata M.D. [id number] Urea nitrogen/Creatinine [Mass ratio] 17.1 mg/mg Normal 10.0-20.0 [facility] Comment on above: Order Comment: [facility] has implemented the eGFR calculation approach that does not have a coefficient for race that conforms to the NKF-ASN Task Force Recommendations. Performed By: #### 4 [id number] #### [facility] [address] [place] [address] 12903 Emmanuel Plata M.D. [id number] Basic metabolic 2000 panelOr dered By: Ferd Hameed on 03-18-2025 Anion gap [Moles/Vol] 16 mmol/L 10 - 2 0 mmol/L [facility] Calcium [Mass/Vol] 8.2 mg/dL Low 8.4 - 10. 2 mg/dL [facility] Chloride [Moles/Vol] 109 mmol/L High 98 - 10 8 mmol/L [facility] Creatinine [Mass/Vol] 1.05 mg/dL 0.80 - 1.30 mg/dL [facility] GFR/1.73 sq M.predicted CKD-EPI (S/P/Bld) [Vol rate/Area] 69 - PINF [facility] Comment on above: Estimated GFR was ca lculated using the 2020 CKD-EPI creatinine equation. Glucose [Mass/Vol] 111 mg/dL High 65 - 99 mg/dL [facility] HCO3 [Moles/Vol] 19 mmol/L Low 21 - 32 mmol/L [facility] Interpretation and review of laboratory results Abnormal [facility] Potassium [Moles/Vol] 4.1 mmol/L 3.5 - 5.1 mmol/L [facility] Comment on above: Slightly Hemolyzed Sodium [Moles/Vol] 140 mmol/L 135 - 145 mmol/L [facility] Urea nitrogen [Mass/Vol] 18 mg/dL 8 - 25 mg/dL [facility] Urea nitrogen/Creatinine [Mass ratio] 17.1 mg/mg 10.0 - 20.0 [facility] has implemented the eGFR calculation approach that does not have a coefficient for race that conforms to the NKF-ASN Task Force Recommendations. [facility] CBCon 03-18-2025 AUTO NRBC 0.0 % Normal [facility] Comment on above: Performed By: #### 4 [id number] #### [facility] [address] [place], [place] [id number] Emmanuel Plata M.D. [id number] AUTO NRBC ABS COUNT 0.00 K/mcL Normal 0.00-0.00 [facility] Comment on above: Performed By: #### 4 [id number] #### [facility] [address] [place] [address] Emmanuel Plata M.D. [id number] Erythrocyte distribution width (RBC) [Ratio] 13.3 % Normal 11.6-14.8 [facility] Comment on above: Performed By: #### 4 [id number] #### [facility] [address] [place] [address] Emmanuel Plata M.D. [id number] Hematocrit (Bld) [Volume fraction] 28.9 % Low 41.0-53.0 [facility] Comment on above: Performed By: #### 4 [id number] #### [facility] [address] [place], [place] [address] Emmanuel Plata M.D. [id number] Hemoglobin (Bld) [Mass/Vol] 10.5 g/dL Low 13.5-17.5 [facility] Comment on above: Performed By: #### 4 [id number] #### [facility] [address] [place], [place] [address] Emmanuel Plata M.D. [id number] MCH (RBC) [Entitic mass] 34.3 pg High 26.0-34.0 [facility] Comment on above: Performed By: #### 4 [id number] #### [facility] [address] [place], [place] [address] Emmanuel Plata M.D. [id number] MCV (RBC) [Entitic vol] 94.4 fL Normal 80.0-100.0 [facility] Comment on above: Performed By: #### 4 [id number] #### [facility] [address] [place] [address] 78[address] Emmanuel Plata M.D. [id number] MEAN CORPUSCULAR HEMOGLOBIN CONC 36.3 g/dL Normal 31.0-37.0 [facility] Comment on above: Performed By: #### 4 [id number] #### [facility] [address] [place] [address] Emmanuel Plata M.D. [id number] Platelet mean volume (Bld) [Entitic vol] 9.7 fL Normal 9.4-12.4 [facility] Comment on above: Performed By: #### 4 [id number] #### [facility] [address] [place] [address] Emmanuel Plata M.D. [id number] Platelets (Bld) [#/Vol] 157 10*3/uL Normal 150-400 [facility] Comment on above: Performed By: #### 4 [id number] #### [facility] [address] [place], [place] [id number] Emmanuel Plata M.D. [id number] RBC (Bld) [#/Vol] 3.06 10*6/uL Low 4.50-5.90 [facility] Comment on above: Performed By: #### 4 [id number] #### [facility] [address] [place], [place] [id number] Emmanuel Plata M.D. [id number] WBC (Bld) [#/Vol] 5.05 10*3/uL Normal 4.50-11.00 [facility] Comment on above: Performed By: #### 4 [id number] #### [facility] [address] [place] [address] 66980Nessa Plata M.D. [id number] CBC panel Auto (Bld)on 03-18 Erythrocyte distribution width (RBC) [Entitic vol] 13.3 % 11.6 - 14.8 % [facility] Hematocrit (Bld) [Volume fraction] 28.9 % Low 41.0 - 53.0 % [facility] Hemoglobin (Bld) [Mass/Vol] 10.5 g/dL Low 13.5 - 17.5 g/dL [facility] Interpretation and review of laboratory results Abnormal [facility] MCH (RBC) [Entitic mass] 34.3 pg High 26.0 - 34.0 pg [facility] MCHC (RBC) [Mass/Vol] 36.3 g/dL 31.0 - 37.0 g/dL [facility] MCV (RBC) [Entitic vol] 94.4 fL 80.0 - 100.0 fL [facility] Nucleated RBC (Bld) [#/Vol] 0 10*3/uL [facility] Nucleated RBC/100 WBC (Bld) [Ratio] 0 % [facility] Platelet mean volume (Bld) [Entitic vol] 9.7 fL 9.4 - 12.4 fL [facility] Platelets (Bld) [#/Vol] 157 10*3/uL [facility] RBC (Bld) [#/Vol] 3.06 10*6/uL Low [facility] WBC (Bld) [#/Vol] 5.05 10*3/uL [facility] MAGNESIUM LEVELon 03-18-2025 Magnesium [Mass/Vol] 2.1 mg/dL Normal 1.6-2.4 [facility] Comment on above: Performed By: #### 4 [id number] #### [facility] [address] [place] [address] Emmanuel Plata M.D. [id number] Magnesiumon 03-18-2025 Magnesium [Mass/Vol] 2.1 mg/dL 1.6 - 2 .4 mg/dL [facility] Magnesium [Mass/Vol]on 03-18 Interpretation and review of laboratory results Normal [facility] No Panel Informationon 03-18 [facility] US Lower extremity vein - ri ghton 03-18-2025 Fluoroscopy used for intraoperative angiogram. Refer to the operative report for details. [email or web address] Workstation ID: [id number] [facility] EXAMINATION: XR OR ANGIO LOWER [...] Refer to the operative report for details. [employer] Workstation ID: [id number] [facility] US Lower extremity vein - ri ghtOrdered By: Sylvia Meyer on 03-18-2025 [facility] Work Phone: APTT HEPARIN COVERAGEon 02-26 aPTT Coag (Bld) [Time] 92 s High 23-34 [facility] Comment on above: Order Comment: Thera peutic range for APTT's is 68 - 104 seconds Performed By: #### 4 [id number] #### [facility] [address] [place] [address] Emmanuel lPata M.D. [id number] APTT Heparin Coverageon 02-26 aPTT Coag (Bld) [Time] 92 s High [facility] Interpretation and review of laboratory results Abnormal [facility] Therapeutic range fo r APTT's is 68 - 104 seconds [facility] BASIC METABOLIC PANELon 02-26 Anion gap [Moles/Vol] 12 mmol/L Normal 10-20 [facility] Comment on above: Order Comment: [facility] has implemented the eGFR calculation approach that does not have a coefficient for race that conforms to the NKF-ASN Task Force Recommendations. Performed By: #### 4 6109 #### [facility] [address] [place] [address] 35575 Emmanuel Plata M.D. [id number] Calcium [Mass/Vol] 8.5 mg/dL Normal 8.4-10.2 [facility] Comment on above: Order Comment: [facility] has implemented the eGFR calculation approach that does not have a coefficient for race that conforms to the NKF-ASN Task Force Recommendations. Performed By: #### 4 6109 #### [facility] [address] [place] [address] 68140 Emmanuel Plata M.D. [id number] Chloride [Moles/Vol] 106 mmol/L Normal 98-108 [facility] Comment on above: Order Comment: [facility] has implemented the eGFR calculation approach that does not have a coefficient for race that conforms to the NKF-ASN Task Force Recommendations. Performed By: #### 4 6109 #### [facility] [address] [place] [address] 754[address] Emmanuel Plata M.D. [id number] Creatinine [Mass/Vol] 1.05 mg/dL Normal 0.80-1.30 [facility] Comment on above: Order Comment: [facility] has implemented the eGFR calculation approach that does not have a coefficient for race that conforms to the NKF-ASN Task Force Recommendations. Performed By: #### 4 6109 #### [facility] [address] [place], [place] [id number] Emmanuel Plata M.D. [id number] EGFR 69 mL/min/1.73 m2 Normal >=60 [facility] Comment on above: Order Comment: [facility] has implemented the eGFR calculation approach that does not have a coefficient for race that conforms to the NKF-ASN Task Force Recommendations. Result Comment: Maria Del Carmen mated GFR was calculated using the 2020 CKD-EPI creatinine equation. Performed By: #### 4 6109 #### [facility] [address] [place] [address] 75776 Emmanuel Plata M.D. [id number] Glucose [Mass/Vol] 90 mg/dL Normal 65-99 [facility] Comment on above: Order Comment: [facility] has implemented the eGFR calculation approach that does not have a coefficient for race that conforms to the NKF-ASN Task Force Recommendations. Performed By: #### 4 6109 #### [facility] [address] [place] [address] 13731 Emmanuel Plata M.D. [id number] HCO3 (Bld) [Moles/Vol] 24 mmol/L Normal 21-32 [facility] Comment on above: Order Comment: [facility] has implemented the eGFR calculation approach that does not have a coefficient for race that conforms to the NKF-ASN Task Force Recommendations. Performed By: #### 4 6109 #### [facility] [address] [place] [address] 22009 Emmanuel Plata M.D. [id number] Potassium [Moles/Vol] 4.1 mmol/L Normal 3.5-5.1 [facility] Comment on above: Order Comment: [facility] has implemented the eGFR calculation approach that does not have a coefficient for race that conforms to the NKF-ASN Task Force Recommendations. Performed By: #### 4 6109 #### [facility] [address] [place] [address] 02863 Emmanuel Plata M.D. [id number] Sodium [Moles/Vol] 138 mmol/L Normal 135-145 [facility] Comment on above: Order Comment: [facility] has implemented the eGFR calculation approach that does not have a coefficient for race that conforms to the NKF-ASN Task Force Recommendations. Performed By: #### 4 6109 #### [facility] [address] [place] [address] 61231 Emmanuel Plata M.D. [id number] Urea nitrogen [Mass/Vol] 16 mg/dL Normal 8-25 [facility] Comment on above: Order Comment: [facility] has implemented the eGFR calculation approach that does not have a coefficient for race that conforms to the NKF-ASN Task Force Recommendations. Performed By: #### 4 6109 #### [facility] [address] [place] [address] 67699 Emmanuel Plata M.D. [id number] Urea nitrogen/Creatinine [Mass ratio] 15.2 mg/mg Normal 10.0-20.0 [facility] Comment on above: Order Comment: [facility] has implemented the eGFR calculation approach that does not have a coefficient for race that conforms to the NKF-ASN Task Force Recommendations. Performed By: #### 4 6109 #### [facility] [address] [place] [address] 23621 Emmanuel Plata M.D. [id number] Basic metabolic 2000 panelon 03-17-2025 Anion gap [Moles/Vol] 12 mmol/L 10 - 2 0 mmol/L [facility] Calcium [Mass/Vol] 8.5 mg/dL 8.4 - 10. 2 mg/dL [facility] Chloride [Moles/Vol] 106 mmol/L 98 - 10 8 mmol/L [facility] Creatinine [Mass/Vol] 1.05 mg/dL 0.80 - 1.30 mg/dL [facility] GFR/1.73 sq M.predicted CKD-EPI (S/P/Bld) [Vol rate/Area] 69 - PINF [facility] Comment on above: Estimated GFR was ca lculated using the 2020 CKD-EPI creatinine equation. Glucose [Mass/Vol] 90 mg/dL 65 - 99 mg/dL [facility] oHeal HCO3 [Moles/Vol] 24 mmol/L 21 - 32 mmol/L [facility] Potassium [Moles/Vol] 4.1 mmol/L 3.5 - 5.1 mmol/L [facility] Sodium [Moles/Vol] 138 mmol/L 135 - 145 mmol/L [facility] Urea nitrogen [Mass/Vol] 16 mg/dL 8 - 25 mg/dL [facility] Urea nitrogen/Creatinine [Mass ratio] 15.2 mg/mg 10.0 - 20.0 [facility] Labor[facility] y Services has implemented the eGFR calculation approach that does not have a coefficient for race that conforms to the NKF-ASN Task Force Recommendations. [facility] CBCon 03-17-2025 AUTO NRBC 0.0 % Normal [facility] Comment on above: Performed By: #### 4 9670 #### [facility] [address] [place], [place] [id number] Emmanuel Plata M.D. [id number] AUTO NRBC ABS COUNT 0.00 K/mcL Normal 0.00-0.00 [facility] Comment on above: Performed By: #### 5 9483 #### [facility] [address] [place], [place] [address]Nessa Plata M.D. [id number] Erythrocyte distribution width (RBC) [Ratio] 13.2 % Normal 11.6-14.8 [facility] Comment on above: Performed By: #### 1 1052 #### [facility] [address] [place] [address] 75218 Emmanuel Plata M.D. [id number] Hematocrit (Bld) [Volume fraction] 33.1 % Low 41.0-53.0 [facility] Comment on above: Result Comment: Repe ated AND verified Performed By: #### 3 9650 #### [facility] [address] [place], [place] [id number] Emmanuel Plata M.D. [id number] Hemoglobin (Bld) [Mass/Vol] 11.0 g/dL Low 13.5-17.5 [facility] Comment on above: Performed By: #### 5 7242 #### [facility] [address] [place], [place] [address] Emmanuel Plata M.D. [id number] MCH (RBC) [Entitic mass] 29.8 pg Normal 26.0-34.0 [facility] Comment on above: Performed By: #### 4 1122 #### [facility] [address] [place] [address] 91327 Emmanuel Plata M.D. [id number] MCV (RBC) [Entitic vol] 89.7 fL Normal 80.0-100.0 [facility] Comment on above: Performed By: #### 4 2008 #### [facility] [address] [place] [address] Emmanuel Plata M.D. [id number] MEAN CORPUSCULAR HEMOGLOBIN CONC 33.2 g/dL Normal 31.0-37.0 [facility] Comment on above: Result Comment: Cold Agglutinin present Performed By: #### 4 9212 #### [facility] [address] [place] [address] Emmanuel Plata M.D. [id number] Platelet mean volume (Bld) [Entitic vol] 10.2 fL Normal 9.4-12.4 [facility] Comment on above: Performed By: #### 4 1205 #### [facility] [address] [place], [place] [id number] Emmanuel Plata M.D. [id number] Platelets (Bld) [#/Vol] 153 10*3/uL Normal 150-400 [facility] Comment on above: Performed By: #### 4 6976 #### [facility] [address] [place], [place] [id number] Emmanuel Plata M.D. [id number] RBC (Bld) [#/Vol] 3.69 10*6/uL Low 4.50-5.90 [facility] Comment on above: Performed By: #### 9 8403 #### [facility] [address] [place] [address] 75662 Emmanuel Plata M.D. [id number] WBC (Bld) [#/Vol] 3.29 10*3/uL Low 4.50-11.00 [facility] Comment on above: Performed By: #### 4 6848 #### [facility] [address] [place], [place] [address] Emmanuel Plata M.D. [id number] CBC panel Auto (Bld)on 03-17 Erythrocyte distribution width (RBC) [Entitic vol] 13.2 % 11.6 - 14.8 % [facility] Hematocrit (Bld) [Volume fraction] 33.1 % Low 41.0 - 53.0 % [facility] Comment on above: Repeated & verified Hemoglobin (Bld) [Mass/Vol] 11 g/dL Low 13.5 - 17.5 g/dL [facility] Interpretation and review of laboratory results Abnormal [facility] MCH (RBC) [Entitic mass] 29.8 pg 26.0 - 34.0 pg [facility] MCHC (RBC) [Mass/Vol] 33.2 g/dL 31.0 - 37.0 g/dL [facility] Comment on above: Cold Agglutinin pres ent MCV (RBC) [Entitic vol] 89.7 fL 80.0 - 100.0 fL [facility] Nucleated RBC (Bld) [#/Vol] 0 10*3/uL [facility] Nucleated RBC/100 WBC (Bld) [Ratio] 0 % [facility] Platelet mean volume (Bld) [Entitic vol] 10.2 fL 9.4 - 12.4 fL [facility] Platelets (Bld) [#/Vol] 153 10*3/uL [facility] RBC (Bld) [#/Vol] 3.69 10*6/uL Low [facility] WBC (Bld) [#/Vol] 3.29 10*3/uL Low [facility] 12 Leadon 03-17-2025 Atrial Rate 63 BPM [facility] P [place] 86 degrees [facility] P-R Interval 208 ms [facility] Q-T Interval 454 ms [facility] QRS Duration 102 ms [facility] QTC Calculation (Bezet) 464 ms [facility] R [place] 45 degrees [facility] T [place] 44 degrees [facility] Ventricular Rate 63 BPM [facility] Sinus rhythm with Premature supraventricular complexes Otherwise normal ECG Confirmed by MARY CARLTON ([id number]) on 03/17/2025 7:58:31 AM MUSE [facility] Glucose (Bld) [Mass/Vol]on 0 03-17-2025 Glucose [Mass/Vol] 105 mg/dL High 65 - 99 mg/dL [facility] Interpretation and review of laboratory results Abnormal [facility] HEMOGLOBIN AND HEMATOCRITon 03-17-2025 Hematocrit (Bld) [Volume fraction] 30.5 % Low 41.0-53.0 [facility] Comment on above: Performed By: #### 4 6109 #### [facility] [address] [place] [address] 96169 Emmanuel Plata M.D. [id number] Hemoglobin (Bld) [Mass/Vol] 11.2 g/dL Low 13.5-17.5 [facility] Comment on above: Performed By: #### 4 6109 #### [facility] [address] [place], [place] [id number] Emmanuel Plata M.D. [id number] Hemoglobin and Hematocrit pa franklin (Bld)on 03-17-2025 Hematocrit (Bld) [Volume fraction] 30.5 % Low 41.0 - 53.0 % [facility] Hemoglobin (Bld) [Mass/Vol] 11.2 g/dL Low 13.5 - 17.5 g/dL [facility] Interpretation and review of laboratory results Abnormal [facility] MAGNESIUM LEVELon 03-17-2025 Magnesium [Mass/Vol] 2.1 mg/dL Normal 1.6-2.4 [facility] Comment on above: Performed By: #### 4 6109 #### [facility] [address] [place] [address] 40403 Emmanuel Plata M.D. [id number] Magnesiumon 03-17-2025 Magnesium [Mass/Vol] 2.1 mg/dL 1.6 - 2 .4 mg/dL [facility] No Panel Informationon 03-17 Interpretation and review of laboratory results Normal [facility] OP NOTEon 03-17-2025 OP NOTE TRISTIN POWELL [id number] DATE 03/17/2025 OPERATIVE REPORT SURGEON MOHSEN SARABIA MD RESEARCH NEUROPSYCHOLOGIST FAUSTINA OROZCO, RESIDENT PREOPERATIVE DIAGNOSIS Chronic limb-threatening [...] did elect to shoot an angiogram. A 23-Turkmen butterfly needle was used to puncture the [...] 200 cc. MD Carlo GUNN 03/17/2025 16:58 [id number] T 03/17/2025 23:17 JPW/MODL AUTHENTICATED BY MOHSEN SARABIA, ON 03/24/2025 10:13:39 [facility] POC GLUCOSE - [facility] 025 Glucose [Mass/Vol] 105 mg/dL High 65-99 [facility] Comment on above: Performed By: #### 4 6932 #### [facility] [address] [facility] [id number] [facility] US Lower extremity vein - ri ash 03-17-2025 Radiology Study observation (narrative) [facility] XR OR ANGIO LOWER EXTREMITY [...] Refer to the operative report for details. 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 [id number] aPTT Coag (Bld) [Time] 90 s High [address] [place] [address] Comment on above: Order Comment: Thera peutic range for APTT's is 68 - 104 seconds Performed By: #### 4 6109 #### [facility] [address] [place] [address] Emmanuel Plata M.D. [id number] aPTT Coag (Bld) [Time] 91 s High [address] [place] [address] Comment on above: Order Comment: Thera peutic range for APTT's is 68 - 104 seconds Performed By: #### 4 6109 #### [facility] [address] [place], [place] [id number] Emmanuel Plata M.D. [id number] APTT Heparin CoverageOrdered By: Remigio Hernandez on 03-16-2025 aPTT Coag (Bld) [Time] 85 s High [facility] Interpretation and review of laboratory results Abnormal [facility] Therapeutic range fo r APTT's is 68 - 104 seconds [facility] APTT Heparin CoverageOrdered By: Flory Pino on 03-16-2025 aPTT Coag (Bld) [Time] 90 s High [facility] Therapeutic range fo r APTT's is 68 - 104 seconds [facility] APTT Heparin CoverageOrdered By: Deena Escoto on 03-16-2025 aPTT Coag (Bld) [Time] 91 s High [facility] Interpretation and review of laboratory results Abnormal [facility] Therapeutic range fo r APTT's is 68 - 104 seconds [facility] BASIC METABOLIC PANELon 02-26 Anion gap [Moles/Vol] 15 mmol/L Normal -20 [facility] Comment on above: Order Comment: [facility] has implemented the eGFR calculation approach that does not have a coefficient for race that conforms to the NKF-ASN Task Force Recommendations. Performed By: #### 4 [id number] #### [facility] [address] [place] [address] Emmanuel Plata M.D. [id number] Calcium [Mass/Vol] 9.0 mg/dL Normal 8.4-10.2 [facility] Comment on above: Order Comment: [facility] has implemented the eGFR calculation approach that does not have a coefficient for race that conforms to the NKF-ASN Task Force Recommendations. Performed By: #### 4 [id number] #### [facility] [address] [place] [address] 396[address] Emmanuel Plata M.D. [id number] Chloride [Moles/Vol] 106 mmol/L Normal 98-108 [facility] Comment on above: Order Comment: [facility] has implemented the eGFR calculation approach that does not have a coefficient for race that conforms to the NKF-ASN Task Force Recommendations. Performed By: #### 4 [id number] #### [facility] [address] [place], [place] [id number] Emmanuel Plata M.D. [id number] Creatinine [Mass/Vol] 1.11 mg/dL Normal 0.80-1.30 [facility] Comment on above: Order Comment: [facility] has implemented the eGFR calculation approach that does not have a coefficient for race that conforms to the NKF-ASN Task Force Recommendations. Performed By: #### 4 [id number] #### [facility] [address] [place] [address] Emmanuel Plata M.D. [id number] EGFR 65 mL/min/1.73 m2 Normal >=60 [facility] Comment on above: Order Comment: [facility] has implemented the eGFR calculation approach that does not have a coefficient for race that conforms to the NKF-ASN Task Force Recommendations. Result Comment: Maria Del Carmen mated GFR was calculated using the 2020 CKD-EPI creatinine equation. Performed By: #### 4 [id number] #### [facility] [address] [place] [address] Emmanuel Plata M.D. [id number] Glucose [Mass/Vol] 105 mg/dL High 65-99 [facility] Comment on above: Order Comment: [facility] has implemented the eGFR calculation approach that does not have a coefficient for race that conforms to the NKF-ASN Task Force Recommendations. Performed By: #### 4 [id number] #### [facility] [address] [place] [address] 63409 Emmanuel Plata M.D. [id number] HCO3 (Bld) [Moles/Vol] 24 mmol/L Normal 21-32 [facility] Comment on above: Order Comment: [facility] has implemented the eGFR calculation approach that does not have a coefficient for race that conforms to the NKF-ASN Task Force Recommendations. Performed By: #### 4 [id number] #### [facility] [address] [place] [address] 31430 Emmanuel Plata M.D. [id number] Potassium [Moles/Vol] 4.3 mmol/L Normal 3.5-5.1 [facility] Comment on above: Order Comment: [facility] has implemented the eGFR calculation approach that does not have a coefficient for race that conforms to the NKF-ASN Task Force Recommendations. Performed By: #### 4 [id number] #### [facility] [address] [place] [address] 16941 Emmanuel Plata M.D. [id number] Sodium [Moles/Vol] 141 mmol/L Normal 135-145 [facility] Comment on above: Order Comment: [facility] has implemented the eGFR calculation approach that does not have a coefficient for race that conforms to the NKF-ASN Task Force Recommendations. Performed By: #### 4 [id number] #### [facility] [address] [place] [address] 42532 Emmanuel Plata M.D. [id number] Urea nitrogen [Mass/Vol] 20 mg/dL Normal 8-25 [facility] Comment on above: Order Comment: [facility] Services has implemented the eGFR calculation approach that does not have a coefficient for race that conforms to the NKF-ASN Task Force Recommendations. Performed By: #### 4 [id number] #### [facility] [address] [place] [address] 64000 Emmanuel Plata M.D. [id number] Urea nitrogen/Creatinine [Mass ratio] 18.0 mg/mg Normal 10.0-20.0 [facility] Comment on above: Order Comment: [facility] has implemented the eGFR calculation approach that does not have a coefficient for race that conforms to the NKF-ASN Task Force Recommendations. Performed By: #### 4 [id number] #### [facility] [address] [place] [address] 02171 Emmanuel Plata M.D. [id number] Basic metabolic 2000 panelon 03-16-2025 Anion gap [Moles/Vol] 15 mmol/L 10 - 2 0 mmol/L [facility] Calcium [Mass/Vol] 9 mg/dL 8.4 - 10. 2 mg/dL [facility] Chloride [Moles/Vol] 106 mmol/L 98 - 10 8 mmol/L [facility] Creatinine [Mass/Vol] 1.11 mg/dL 0.80 - 1.30 mg/dL [facility] GFR/1.73 sq M.predicted CKD-EPI (S/P/Bld) [Vol rate/Area] 65 - PINF [facility] Comment on above: Estimated GFR was ca lculated using the 2020 CKD-EPI creatinine equation. Glucose [Mass/Vol] 105 mg/dL High 65 - 99 mg/dL [facility] HCO3 [Moles/Vol] 24 mmol/L 21 - 32 mmol/L [facility] Interpretation and review of laboratory results Abnormal [facility] Potassium [Moles/Vol] 4.3 mmol/L 3.5 - 5.1 mmol/L [facility] Sodium [Moles/Vol] 141 mmol/L 135 - 145 mmol/L [facility] Urea nitrogen [Mass/Vol] 20 mg/dL 8 - 25 mg/dL [facility] Urea nitrogen/Creatinine [Mass ratio] 18 mg/mg 10.0 - 20.0 [facility] has implemented the eGFR calculation approach that does not have a coefficient for race that conforms to the NKF-ASN Task Force Recommendations. [facility] Blood type and Indirect anti body screen panel (Bld)on 03-16-2025 ABO and Rh group Nom (Bld) Blood group O Rh(D) positive [facility] Blood group antibody screen Ql Negative [facility] Specimen Expires 03/19/2025 23:59 EST [facility] CBCon 03-16-2025 AUTO NRBC 0.0 % Normal [facility] Comment on above: Performed By: #### 2 6387 #### [facility] [address] [place], [place] [id number] Emmanuel Plata M.D. [id number] AUTO NRBC ABS COUNT 0.00 K/mcL Normal 0.00-0.00 [facility] Comment on above: Performed By: #### 4 1616 #### [facility] [address] [place], [place] [id number] Emmanuel Plata M.D. [id number] Erythrocyte distribution width (RBC) [Ratio] 13.3 % Normal 11.6-14.8 [facility] Comment on above: Performed By: #### 6 2189 #### [facility] [address] [place], [place] [id number] Emmanuel Plata M.D. [id number] Hematocrit (Bld) [Volume fraction] 36.7 % Low 41.0-53.0 [facility] Comment on above: Performed By: #### 7 1592 #### [facility] [address] [place], [place] [id number] Emmanuel Plata M.D. [id number] Hemoglobin (Bld) [Mass/Vol] 12.0 g/dL Low 13.5-17.5 [facility] Comment on above: Performed By: #### 8 6584 #### [facility] [address] [place], [place] [id number] Emmanuel Plata M.D. [id number] MCH (RBC) [Entitic mass] 29.9 pg Normal 26.0-34.0 [facility] Comment on above: Performed By: #### 4 8552 #### [facility] [address] [place] [address] 20271 Emmanuel Plata M.D. [id number] MCV (RBC) [Entitic vol] 91.3 fL Normal 80.0-100.0 [facility] Comment on above: Performed By: #### 4 1177 #### [facility] [address] [place] [address] 18297 Emmanuel Plata M.D. [id number] MEAN CORPUSCULAR HEMOGLOBIN CONC 32.7 g/dL Normal 31.0-37.0 [facility] Comment on above: Performed By: #### 4 7954 #### [facility] [address] [place] [address] Emmnauel Plata M.D. [id number] Platelet mean volume (Bld) [Entitic vol] 10.1 fL Normal 9.4-12.4 [facility] Comment on above: Performed By: #### 4 4367 #### [facility] [address] [place] [address] 90449 Emmanuel Plata M.D. [id number] Platelets (Bld) [#/Vol] 159 10*3/uL Normal 150-400 [facility] Comment on above: Performed By: #### 4 1682 #### [facility] [address] [place] [address] 39417 Emmanuel Plata M.D. [id number] RBC (Bld) [#/Vol] 4.02 10*6/uL Low 4.50-5.90 [facility] Comment on above: Performed By: #### 4 5254 #### [facility] [address] [place] [address] 41217 Emmanuel Plata M.D. [id number] WBC (Bld) [#/Vol] 4.27 10*3/uL Low 4.50-11.00 [facility] Comment on above: Performed By: #### 4 6848 #### [facility] [address] [place] [address] Emmanuel Plata M.D. [id number] CBC panel Auto (Bld)on 03-16 Erythrocyte distribution width (RBC) [Entitic vol] 13.3 % 11.6 - 14.8 % [facility] Hematocrit (Bld) [Volume fraction] 36.7 % Low 41.0 - 53.0 % [facility] Hemoglobin (Bld) [Mass/Vol] 12 g/dL Low 13.5 - 17.5 g/dL [facility] Interpretation and review of laboratory results Abnormal [facility] MCH (RBC) [Entitic mass] 29.9 pg 26.0 - 34.0 pg [facility] MCHC (RBC) [Mass/Vol] 32.7 g/dL 31.0 - 37.0 g/dL [facility] MCV (RBC) [Entitic vol] 91.3 fL 80.0 - 100.0 fL [facility] Nucleated RBC (Bld) [#/Vol] 0 10*3/uL [facility] Nucleated RBC/100 WBC (Bld) [Ratio] 0 % [facility] Platelet mean volume (Bld) [Entitic vol] 10.1 fL 9.4 - 12.4 fL [facility] Platelets (Bld) [#/Vol] 159 10*3/uL [facility] RBC (Bld) [#/Vol] 4.02 10*6/uL Low [facility] WBC (Bld) [#/Vol] 4.27 10*3/uL Low [facility] INR Coag (PPP) [Relative abi e]on 03-16-2025 PT Coag (PPP) [Time] 14.7 s [facility] During the induction phase of oral anticoagulation, the INR may not reflect the anticoagulation status of the patient. Therapeutic ranges for INR's are: Most clinical situations: INR 2.0-3.0 Mechanical Prosthetic Valve: INR 2.5-3.5 Critical: INR >5.0 [facility] MAGNESIUM LEVELon 03-16-2025 Magnesium [Mass/Vol] 2.3 mg/dL Normal 1.6-2.4 [facility] Comment on above: Performed By: #### 4 [id number] #### [facility] [address] [place] [address] 05352 Emmanuel Plata M.D. [id number] Magnesiumon 03-16-2025 Magnesium [Mass/Vol] 2.3 mg/dL 1.6 - 2 .4 mg/dL [facility] Magnesium [Mass/Vol]on 03-16 Interpretation and review of laboratory results Normal [facility] No Panel InformationOrdered By: Flory Pino on 03-16-2025 Interpretation and review of laboratory results Abnormal [facility] No Panel Informationon 03-16 [facility] PT/INRon 03-16-2025 INR Coag (PPP) [Relative time] 1.1 {INR} 0.8 - 1.1 [facility] INR Coag (PPP) [Relative time] 1.1 {INR} Normal 0.8-1.1 [facility] Comment on above: Order Comment: Rafita denise the induction phase of oral anticoagulation, the INR may not reflect the anticoagulation status of the patient. Therapeutic ranges for INR's are:Most clinical situations: INR 2.0-3.0Mechanical Prosthetic Valve: INR 2.5-3.5Critical: INR >5.0 Performed By: #### 4 6391 ####[facility] [address] [place] [address] 50811 Emmanuel Plata M.D. [id number] PT Coag (PPP) [Time] 14.7 s High 11.8-14.3 [facility] Comment on above: Order Comment: Rafita denise the induction phase of oral anticoagulation, the INR may not reflect the anticoagulation status of the patient. Therapeutic ranges for INR's are:Most clinical situations: INR 2.0-3.0Mechanical Prosthetic Valve: INR 2.5-3.5Critical: INR >5.0 Performed By: #### 4 6391 ####[facility] [address] [place] [address] 03209 Emmanuel Plata M.D. [id number] TYPE AND SCREENon 03-16-2025 TYPE AND SCREEN ABORH: O Positive AB SCREEN: Negative EXPIRATION DATE: 03/19/2025 23:59 EST Normal [facility] Comment on above: Performed By: #### 4 6109 #### [facility] [address] Emmanuel Plata M.D. [id number] US SAPHENOUS VEIN MAPon 02-26 US SAPHENOUS VEIN MAP Patient Info Name: Tristin Powell Age: 85 years : 1940 Gender: Male Exam Date: 03/14/2025 9:26 PM Patient Status: INPATIENT Site Location: [facility] Indications Z01.810 - Encounter for preprocedural cardiovascular examination Procedure Description 42889 Duplex examination using B-mode, color and spectral Doppler of extremity veins including responses to compression and other maneuvers; complete bilateral study. Plant Production Manager: Cristian Ellis RVT, [facility] Staff Ordering Physician: Beena Barraza Conclusions * [...] Hein MD, RPVI on 03/16/2025 11:15 AM [facility] US UE VEIN MAPon 03-16-2025 US UE VEIN MAP Patient Info Name: Tristin Powell Age: 85 years : 1940 Gender: Male Exam Date: 03/14/2025 9:20 PM Patient Status: INPATIENT Site Location: [facility] Indications Z01.810 - Encounter for preprocedural cardiovascular examination Procedure Description 50725 Duplex examination using B-mode, color and spectral Doppler of extremity veins including responses to compression and other maneuvers; complete bilateral study. Plant Production Manager: Cristian Ellis RVT, [facility] Staff Ordering Physician: Beena Celis * Right [...] Hein MD, NATANAEL on 03/16/2025 11:14 AM [facility] Ultrasound Saphenous vein ma ppingon 03-16-2025 Patient Info Name: Tristin Powell Age: 85 years : 1940 Gender: Male Exam Date: 03/14/2025 9:26 PM Patient Status: INPATIENT Site Location: [facility] Indications Z01.810 - Encounter for preprocedural cardiovascular examination Procedure Description 27806 Duplex examination using B-mode, color and spectral Doppler of extremity veins including responses to compression and other maneuvers; complete bilateral study. Plant Production Manager: Cristian Ellis RVT, [facility] Staff Ordering Physician: Beena Barraza Conclusions * [...] Hein MD, NATANAEL on 03/16/2025 11:15 AM [facility] Aaron Hein M D - 03/16/2025 Patient Info Name: Tristin Powell Age: 85 years : 1940 Gender: Male Exam Date: 03/14/2025 9:26 PM Patient Status: INPATIENT Site Location: [facility] Indications Z01.810 - Encounter for preprocedural cardiovascular examination Procedure Description 76039 Duplex examination using B-mode, color and spectral Doppler of extremity veins including responses to compression and other maneuvers; complete bilateral study. Plant Production Manager: Cristian Ellis RVT, [facility] Staff Ordering Physician: Beena Barraza Conclusions * [...] Hein MD, RPVI on 03/16/2025 11:15 AM [facility] Upper extremity vein mapping on 03-16-2025 Patient Info Name: Tristin Powell Age: 85 years : 1940 Gender: Male Exam Date: 03/14/2025 9:20 PM Patient Status: INPATIENT Site Location: [facility] Indications Z01.810 - Encounter for preprocedural cardiovascular examination Procedure Description 42333 Duplex examination using B-mode, color and spectral Doppler of extremity veins including responses to compression and other maneuvers; complete bilateral study. Plant Production Manager: Cristian Ellis RVT, [facility] Staff Ordering Physician: Beena Barraza Conclusions * [...] Patient Status: INPATIENT Site Location: [facility] Indications Z01.810 - Encounter for preprocedural cardiovascular examination Procedure Description 68159 Duplex examination using B-mode, color and spectral Doppler of extremity veins including responses to compression and other maneuvers; complete bilateral study. Plant Production Manager: Cristian Ellis RVT, [facility] Staff Ordering Physician: Beena Barraza Conclusions * [...] Hein MD, RPVI on 03/16/2025 11:14 AM [facility] APTTon 03-15-2025 aPTT Coag (Bld) [Time] 33 s [facility] aPTT Coag (Bld) [Time] 33 s Normal 23-34 [facility] Comment on above: Order Comment: Thera peutic range for APTT's is 68 - 104 seconds Performed By: #### 4 5113 ####[facility] [address] [place] [address] 31543 Emmanuel Plata M.D. [id number] BASIC METABOLIC PANELon 07- Anion gap [Moles/Vol] 13 mmol/L Normal 10-20 [facility] Comment on above: Order Comment: [facility] has implemented the eGFR calculation approach that does not have a coefficient for race that conforms to the NKF-ASN Task Force Recommendations. Performed By: #### 4 [id number] #### [facility] [address] [place] [address] 45299 Emmanuel Plata M.D. [id number] Calcium [Mass/Vol] 8.9 mg/dL Normal 8.4-10.2 [facility] Comment on above: Order Comment: [facility] has implemented the eGFR calculation approach that does not have a coefficient for race that conforms to the NKF-ASN Task Force Recommendations. Performed By: #### 4 [id number] #### [facility] [address] [place] [address] 20176 Emmanuel Plata M.D. [id number] Chloride [Moles/Vol] 108 mmol/L Normal 98-108 [facility] Comment on above: Order Comment: [facility] has implemented the eGFR calculation approach that does not have a coefficient for race that conforms to the NKF-ASN Task Force Recommendations. Performed By: #### 4 [id number] #### [facility] [address] [place] [address] 35101 Emmanuel Plata M.D. [id number] Creatinine [Mass/Vol] 1.12 mg/dL Normal 0.80-1.30 [facility] Comment on above: Order Comment: [facility] has implemented the eGFR calculation approach that does not have a coefficient for race that conforms to the NKF-ASN Task Force Recommendations. Performed By: #### 4 [id number] #### [facility] [address] [place] [address] 87049 Emmanuel Plata M.D. [id number] EGFR 64 mL/min/1.73 m2 Normal >=60 [facility] Comment on above: Order Comment: [facility] has implemented the eGFR calculation approach that does not have a coefficient for race that conforms to the NKF-ASN Task Force Recommendations. Result Comment: Maria Del Carmen mated GFR was calculated using the 2020 CKD-EPI creatinine equation. Performed By: #### 4 [id number] #### [facility] [address] [place] [address] 59855 Emmanuel Plata M.D. [id number] Glucose [Mass/Vol] 139 mg/dL High 65-99 [facility] Comment on above: Order Comment: [facility] has implemented the eGFR calculation approach that does not have a coefficient for race that conforms to the NKF-ASN Task Force Recommendations. Performed By: #### 4 [id number] #### [facility] [address] [place] [address] 74415 Emmanuel Plata M.D. [id number] HCO3 (Bld) [Moles/Vol] 24 mmol/L Normal 21-32 [facility] Comment on above: Order Comment: [facility] has implemented the eGFR calculation approach that does not have a coefficient for race that conforms to the NKF-ASN Task Force Recommendations. Performed By: #### 4 [id number] #### [facility] [address] [place] [address] 59495 Emmanuel Plata M.D. [id number] Potassium [Moles/Vol] 3.9 mmol/L Normal 3.5-5.1 [facility] Comment on above: Order Comment: [facility] has implemented the eGFR calculation approach that does not have a coefficient for race that conforms to the NKF-ASN Task Force Recommendations. Performed By: #### 4 [id number] #### [facility] [address] [place] [address] 67344 Emmanuel Plata M.D. [id number] Sodium [Moles/Vol] 141 mmol/L Normal 135-145 [facility] Comment on above: Order Comment: [facility] has implemented the eGFR calculation approach that does not have a coefficient for race that conforms to the NKF-ASN Task Force Recommendations. Performed By: #### 4 [id number] #### [facility] [address] [place] [address] 62484 Emmanuel Plata M.D. [id number] Urea nitrogen [Mass/Vol] 19 mg/dL Normal 8-25 [facility] Comment on above: Order Comment: [facility] has implemented the eGFR calculation approach that does not have a coefficient for race that conforms to the NKF-ASN Task Force Recommendations. Performed By: #### 4 [id number] #### [facility] [address] [place] [address] 52731 Emmanuel Plata M.D. [id number] Urea nitrogen/Creatinine [Mass ratio] 17.0 mg/mg Normal 10.0-20.0 [facility] Comment on above: Order Comment: [facility] has implemented the eGFR calculation approach that does not have a coefficient for race that conforms to the NKF-ASN Task Force Recommendations. Performed By: #### 4 [id number] #### [facility] [address] [place] [address] 44137 Emmanuel Plata M.D. [id number] Basic metabolic 2000 panelon 03-15-2025 Anion gap [Moles/Vol] 13 mmol/L 10 - 2 0 mmol/L [facility] Calcium [Mass/Vol] 8.9 mg/dL 8.4 - 10. 2 mg/dL [facility] Chloride [Moles/Vol] 108 mmol/L 98 - 10 8 mmol/L [facility] Creatinine [Mass/Vol] 1.12 mg/dL 0.80 - 1.30 mg/dL [facility] GFR/1.73 sq M.predicted CKD-EPI (S/P/Bld) [Vol rate/Area] 64 - PINF [facility] Comment on above: Estimated GFR was ca lculated using the 2020 CKD-EPI creatinine equation. Glucose [Mass/Vol] 139 mg/dL High 65 - 99 mg/dL [facility] HCO3 [Moles/Vol] 24 mmol/L 21 - 32 mmol/L [facility] Interpretation and review of laboratory results Abnormal [facility] Potassium [Moles/Vol] 3.9 mmol/L 3.5 - 5.1 mmol/L [facility] Sodium [Moles/Vol] 141 mmol/L 135 - 145 mmol/L [facility] Urea nitrogen [Mass/Vol] 19 mg/dL 8 - 25 mg/dL [facility] Urea nitrogen/Creatinine [Mass ratio] 17 mg/mg 10.0 - 20.0 [facility] has implemented the eGFR calculation approach that does not have a coefficient for race that conforms to the NKF-ASN Task Force Recommendations. [facility] CBCon 03-15-2025 AUTO NRBC 0.0 % Normal [facility] Comment on above: Performed By: #### 4 6109 #### [facility] [address] [place], [place] [id number] Emmanuel Plata M.D. [id number] AUTO NRBC ABS COUNT 0.00 K/mcL Normal 0.00-0.00 [facility] Comment on above: Performed By: #### 4 6109 #### [facility] [address] [place], [place] [address]Nessa Plata M.D. [id number] Erythrocyte distribution width (RBC) [Ratio] 13.4 % Normal 11.6-14.8 [facility] Comment on above: Performed By: #### 4 6103 #### [facility] [address] [place], [place] [id number] Emmanuel Plata M.D. [id number] Hematocrit (Bld) [Volume fraction] 34.9 % Low 41.0-53.0 [facility] Comment on above: Performed By: #### 4 6104 #### [facility] [address] [place], [place] [address] Emmanuel Plata M.D. [id number] Hemoglobin (Bld) [Mass/Vol] 11.7 g/dL Low 13.5-17.5 [facility] Comment on above: Performed By: #### 4 6109 #### [facility] [address] [place], [place] [address] Emmanuel Plata M.D. [id number] MCH (RBC) [Entitic mass] 30.4 pg Normal 26.0-34.0 [facility] Comment on above: Performed By: #### 4 6109 #### [facility] [address] [place] [address] Emmanuel Plata M.D. [id number] MCV (RBC) [Entitic vol] 90.6 fL Normal 80.0-100.0 [facility] Comment on above: Result Comment: Repe ated AND verified Performed By: #### 4 6109 #### [facility] [address] [place], [place] [address] Emmanuel Plata M.D. [id number] MEAN CORPUSCULAR HEMOGLOBIN CONC 33.5 g/dL Normal 31.0-37.0 [facility] Comment on above: Result Comment: Repe ated AND verified Performed By: #### 4 [id number] #### [facility] [address] [place], [place] [id number] Emmanuel Plata M.D. [id number] Platelet mean volume (Bld) [Entitic vol] 9.9 fL Normal 9.4-12.4 [facility] Comment on above: Performed By: #### 4 [id number] #### [facility] [address] [place] [address] 19792 Emmanuel Plata M.D. [id number] Platelets (Bld) [#/Vol] 144 10*3/uL Low 150-400 [facility] Comment on above: Performed By: #### 4 [id number] #### [facility] [address] [place], [place] [id number] Emmanuel Plata M.D. [id number] RBC (Bld) [#/Vol] 3.85 10*6/uL Low 4.50-5.90 [facility] Comment on above: Performed By: #### 4 6109 #### [facility] [address] [place] [address] 313[address] Emmanuel Plata M.D. [id number] WBC (Bld) [#/Vol] 3.23 10*3/uL Low 4.50-11.00 [facility] Comment on above: Performed By: #### 4 6109 #### [facility] [place], [place] [address] Emmanuel Plata M.D. [id number] CBC panel Auto (Bld)on 03-15 Erythrocyte distribution width (RBC) [Entitic vol] 13.4 % 11.6 - 14.8 % [facility] Hematocrit (Bld) [Volume fraction] 34.9 % Low 41.0 - 53.0 % [facility] Hemoglobin (Bld) [Mass/Vol] 11.7 g/dL Low 13.5 - 17.5 g/dL [facility] Interpretation and review of laboratory results Abnormal [facility] MCH (RBC) [Entitic mass] 30.4 pg 26.0 - 34.0 pg [facility] MCHC (RBC) [Mass/Vol] 33.5 g/dL 31.0 - 37.0 g/dL [facility] Comment on above: Repeated & verified MCV (RBC) [Entitic vol] 90.6 fL 80.0 - 100.0 fL [facility] Comment on above: Repeated & verified Nucleated RBC (Bld) [#/Vol] 0 10*3/uL [facility] Nucleated RBC/100 WBC (Bld) [Ratio] 0 % [facility] Platelet mean volume (Bld) [Entitic vol] 9.9 fL 9.4 - 12.4 fL [facility] Platelets (Bld) [#/Vol] 144 10*3/uL Low [facility] RBC (Bld) [#/Vol] 3.85 10*6/uL Low [facility] WBC (Bld) [#/Vol] 3.23 10*3/uL Low [facility] ECG 12 Leadon 03-15-2025 Atrial Rate 83 BPM [facility] P [place] 62 degrees [facility] P-R Interval 182 ms [facility] Q-T Interval 400 ms [facility] QRS Duration 92 ms [facility] QTC Calculation (Bezet) 470 ms [facility] R [place] 35 degrees [facility] T [place] 41 degrees [facility] Ventricular Rate 83 BPM [facility] Sinus rhythm with Premature supraventricular complexes Otherwise normal ECG Confirmed by OTILIO MONTOYA M.D. ([id number]) on 03/15/2025 6:58:39 AM MUSE [facility] HEMOGLOBIN AND HEMATOCRITon 03-15-2025 Hematocrit (Bld) [Volume fraction] 31.0 % Low 41.0-53.0 [facility] Comment on above: Performed By: #### 4 6848 #### [facility] [address] [place] [address] Emmanuel Plata M.D. [id number] Hemoglobin (Bld) [Mass/Vol] 12.4 g/dL Low 13.5-17.5 [facility] Comment on above: Performed By: #### 4 6848 #### [facility] [address] [place] [address] 17608 Emmanuel Plata M.D. [id number] Hemoglobin and Hematocrit pa franklin (Bld)on 03-15-2025 Hematocrit (Bld) [Volume fraction] 31 % Low 41.0 - 53.0 % [facility] Hemoglobin (Bld) [Mass/Vol] 12.4 g/dL Low 13.5 - 17.5 g/dL [facility] Interpretation and review of laboratory results Abnormal [facility] MAGNESIUM LEVELon 03-15-2025 Magnesium [Mass/Vol] 2.2 mg/dL Normal 1.6-2.4 [facility] Comment on above: Performed By: #### 4 6109 #### [facility] [address] [place] [id number] Emmanuel Plata M.D. [id number] Magnesiumon 03-15-2025 Magnesium [Mass/Vol] 2.2 mg/dL 1.6 - 2 .4 mg/dL [facility] Magnesium [Mass/Vol]on 03-15 Interpretation and review of laboratory results Normal [facility] No Panel Informationon 03-15 [facility] Repeat EKGon 03-15-2025 Atrial Rate 93 BPM [facility] P-R Interval 170 ms [facility] Q-T Interval 404 ms [facility] QRS Duration 94 ms [facility] QTC Calculation (Bezet) 502 ms [facility] R [place] 49 degrees [facility] T [place] 44 degrees [facility] Ventricular Rate 93 BPM [facility] Sinus rhythm with frequent Premature ventricular complexes Prolonged QT Abnormal ECG Confirmed by OTILIO MONTOYA M.D. ([id number]) on 03/15/2025 7:01:22 AM MUSE [facility] aPTT Coag (Bld) [Time]on Interpretation and review of laboratory results Normal [facility] Therapeutic range fo r APTT's is 68 - 104 seconds [facility] Basic metabolic 1998 panelOr dered By: Regina Dillon on 03-14-2025 Anion gap [Moles/Vol] 16 mmol/L 10 - 2 0 mmol/L [facility] Chloride [Moles/Vol] 102 mmol/L 98 - 10 8 mmol/L [facility] Creatinine [Mass/Vol] 1.12 mg/dL 0.80 - 1.30 mg/dL [facility] GFR/1.73 sq M.predicted CKD-EPI (S/P/Bld) [Vol rate/Area] 64 - PINF [facility] Comment on above: Estimated GFR was ca lculated using the 2020 CKD-EPI creatinine equation. Glucose [Mass/Vol] 100 mg/dL High 65 - 99 mg/dL [facility] HCO3 [Moles/Vol] 25 mmol/L 21 - 32 mmol/L [facility] Interpretation and review of laboratory results Abnormal [facility] Potassium [Moles/Vol] 3.8 mmol/L 3.5 - 5.1 mmol/L [facility] Sodium [Moles/Vol] 139 mmol/L 135 - 145 mmol/L [facility] Urea nitrogen [Mass/Vol] 20 mg/dL 8 - 25 mg/dL [facility] Urea nitrogen/Creatinine [Mass ratio] 17.9 mg/mg 10.0 - 20.0 [facility] Laborator y Services has implemented the eGFR calculation approach that does not have a coefficient for race that conforms to the NKF-ASN Task Force Recommendations. [facility] CBC Auto Differentialon 02-25 Basophils (Bld) [#/Vol] 0.02 10*3/uL [facility] Basophils/100 WBC (Bld) 0.6 % [facility] Eosinophils (Bld) [#/Vol] 0.12 10*3/uL [facility] Eosinophils/100 WBC (Bld) 3.4 % [facility] Erythrocyte distribution width (RBC) [Entitic vol] 13.5 % 11.6 - 14.8 % [facility] Hematocrit (Bld) [Volume fraction] 39.3 % Low 41.0 - 53.0 % [facility] Hemoglobin (Bld) [Mass/Vol] 13.2 g/dL Low 13.5 - 17.5 g/dL [facility] Immature granulocytes (Bld) [#/Vol] 0.01 10*3/uL [facility] Immature granulocytes/100 WBC (Bld) 0.3 % [facility] Comment on above: The IG parameter is the percentage of metamyelocytes, myelocytes and promyelocytes. An immature granulocyte count (IG) of 1% or more suggests the possibility of infection, an IG count of 3% is very likely related to an infection. Interpretation and review of laboratory results Abnormal [facility] Lymphocytes (Bld) [#/Vol] 0.65 10*3/uL Low [facility] Lymphocytes/100 WBC (Bld) 18.6 % [facility] MCH (RBC) [Entitic mass] 30.4 pg 26.0 - 34.0 pg [facility] MCHC (RBC) [Mass/Vol] 33.6 g/dL 31.0 - 37.0 g/dL [facility] MCV (RBC) [Entitic vol] 90.6 fL 80.0 - 100.0 fL [facility] Monocytes (Bld) [#/Vol] 0.81 10*3/uL [facility] Monocytes/100 WBC (Bld) 23.1 % [facility] Neutrophils (Bld) [#/Vol] 1.89 10*3/uL [facility] Neutrophils/100 WBC (Bld) 54 % [facility] Comment on above: Peripheral smear rev iewed manually Nucleated RBC (Bld) [#/Vol] 0 10*3/uL [facility] Nucleated RBC/100 WBC (Bld) [Ratio] 0 % [facility] Platelet mean volume (Bld) [Entitic vol] 9.3 fL Low 9.4 - 12.4 fL [facility] Platelets (Bld) [#/Vol] 173 10*3/uL [facility] RBC (Bld) [#/Vol] 4.34 10*6/uL Low [facility] WBC (Bld) [#/Vol] 3.5 10*3/uL Low [facility] CBC WITH AUTO DIFFERENTIALon 03-14-2025 AUTO NRBC 0.0 % Normal [facility] Comment on above: Performed By: #### 4 [id number] #### [facility] [address] [place] [address] Emmanuel Plata M.D. [id number] AUTO NRBC ABS COUNT 0.00 K/mcL Normal 0.00-0.00 [facility] Comment on above: Performed By: #### 4 5319 #### [facility] [address] [place] [address] Emmanuel Plata M.D. [id number] BASOPHILS ABSOLUTE COUNT 0.02 K/mcL Normal 0.00-0.30 [facility] Comment on above: Performed By: #### 4 2049 #### [facility] [address] [place] [address] Emmanuel Plata M.D. [id number] Basophils/100 WBC (Bld) 0.6 % Normal [facility] Comment on above: Performed By: #### 4 [id number] #### [facility] [address] [place] [address] Emmanuel Plata M.D. [id number] Eosinophils (Bld) [#/Vol] 0.12 10*3/uL Normal 0.00-0.50 [facility] Comment on above: Performed By: #### 4 2529 #### [facility] [address] [place] [address] Emmanuel Plata M.D. [id number] Eosinophils/100 WBC (Bld) 3.4 % Normal [facility] Comment on above: Performed By: #### 4 7238 #### [facility] [address] [place] [address] Emmanuel Plata M.D. [id number] Erythrocyte distribution width (RBC) [Ratio] 13.5 % Normal 11.6-14.8 [facility] Comment on above: Performed By: #### 4 6109 #### [facility] [address] [place], [place] [id number] Emmanuel Plata M.D. [id number] Hematocrit (Bld) [Volume fraction] 39.3 % Low 41.0-53.0 [facility] Comment on above: Performed By: #### 4 [id number] #### [facility] [address] [place] [address] Emmanuel Plata M.D. [id number] Hemoglobin (Bld) [Mass/Vol] 13.2 g/dL Low 13.5-17.5 [facility] Comment on above: Performed By: #### 4 6109 #### [facility] [address] [place] [address] Emmanuel Plata M.D. [id number] IG ABSOLUTE 0.01 K/mcL Normal 0.00-0.30 [facility] Comment on above: Performed By: #### 4 6109 #### [facility] [address] [place], [place] [id number] Emmanuel Plata M.D. [id number] IG PERCENT 0.30 % Normal [facility] Comment on above: Result Comment: The IG parameter is the percentage of metamyelocytes, myelocytes and promyelocytes. An immature granulocyte count (IG) of 1% or more suggests the possibility of infection, an IG count of 3% is very likely related to an infection. Performed By: #### 4 [id number] #### [facility] [address] [place] [address] Emmanuel Plata M.D. [id number] Lymphocytes (Bld) [#/Vol] 0.65 10*3/uL Low 0.90-4.00 [facility] Comment on above: Performed By: #### 4 6109 #### [facility] [address] [place] [address] Emmanuel Plata M.D. [id number] Lymphocytes/100 WBC (Bld) 18.6 % Normal [facility] Comment on above: Performed By: #### 4 6109 #### [facility] [address] [place] [address] Emmanuel Plata M.D. [id number] MCH (RBC) [Entitic mass] 30.4 pg Normal 26.0-34.0 [facility] Comment on above: Performed By: #### 4 6109 #### [facility] [address] [place] [address] Emmanuel Plata M.D. [id number] MCV (RBC) [Entitic vol] 90.6 fL Normal 80.0-100.0 [facility] Comment on above: Performed By: #### 4 6109 #### [facility] [address] [place] [address] Emmanuel Plata M.D. [id number] MEAN CORPUSCULAR HEMOGLOBIN CONC 33.6 g/dL Normal 31.0-37.0 [facility] Comment on above: Performed By: #### 4 6109 #### [facility] [address] [place] [address] Emmanuel Plata M.D. [id number] Monocytes (Bld) [#/Vol] 0.81 10*3/uL Normal 0.30-0.90 [facility] Comment on above: Performed By: #### 4 2651 #### [facility] [address] [place], [place] [address] Emmanuel Plata M.D. [id number] Monocytes/100 WBC (Bld) 23.1 % Normal [facility] Comment on above: Performed By: #### 4 4626 #### [facility] [address] [place], [place] [id number] Emmanuel Plata M.D. [id number] NEUTROPHILS ABSOLUTE COUNT 1.89 K/mcL Normal 1.70-7.00 [facility] Comment on above: Performed By: #### 4 6109 #### [facility] [address] [place], [place] [id number] Emmanuel Plata M.D. [id number] Neutrophils/100 WBC (Bld) 54.0 % Normal [facility] Comment on above: Result Comment: Edna pheral smear reviewed manually Performed By: #### 4 6109 #### [facility] [address] [place], [place] [id number] Emmanuel Plata M.D. [id number] Platelet mean volume (Bld) [Entitic vol] 9.3 fL Low 9.4-12.4 [facility] Comment on above: Performed By: #### 4 6109 #### [facility] [address] [place], [place] [address] Emmanuel Plata M.D. [id number] Platelets (Bld) [#/Vol] 173 10*3/uL Normal 150-400 [facility] Comment on above: Performed By: #### 4 [id number] #### [facility] [address] [place], [place] [address] Emmanuel Plata M.D. [id number] RBC (Bld) [#/Vol] 4.34 10*6/uL Low 4.50-5.90 [facility] Comment on above: Performed By: #### 4 6109 #### [facility] [address] [place], [place] [address] Emmanuel Plata M.D. [id number] WBC (Bld) [#/Vol] 3.50 10*3/uL Low 4.50-11.00 [facility] Comment on above: Performed By: #### 4 6109 #### [facility] [address] [place] [address] 09884 Emmanuel Plata M.D. [id number] CHEM 03-14-2025 Anion gap [Moles/Vol] 16 mmol/L Normal 10-20 [facility] Comment on above: Order Comment: [facility] Services has implemented the eGFR calculation approach that does not have a coefficient for race that conforms to the NKF-ASN Task Force Recommendations. Performed By: #### 4 [id number] #### [facility] [address] [place] [address] 53894 Emmanuel Plata M.D. [id number] Chloride [Moles/Vol] 102 mmol/L Normal 98-108 [facility] Comment on above: Order Comment: [facility] Services has implemented the eGFR calculation approach that does not have a coefficient for race that conforms to the NKF-ASN Task Force Recommendations. Performed By: #### 4 [id number] #### [facility] [address] [place], [place] [address] Emmanuel Plata M.D. [id number] Creatinine [Mass/Vol] 1.12 mg/dL Normal 0.80-1.30 [facility] Comment on above: Order Comment: [facility] Services has implemented the eGFR calculation approach that does not have a coefficient for race that conforms to the NKF-ASN Task Force Recommendations. Performed By: #### 4 [id number] #### [facility] [address] [place] [address]59[address] Emmanuel Plata M.D. [id number] EGFR 64 mL/min/1.73 m2 Normal >=60 [facility] Comment on above: Order Comment: [facility] Services has implemented the eGFR calculation approach that does not have a coefficient for race that conforms to the NKF-ASN Task Force Recommendations. Result Comment: Maria Del Carmen mated GFR was calculated using the 2020 CKD-EPI creatinine equation. Performed By: #### 4 [id number] #### [facility] [address] [place] [address]34[address] Emmanuel Plata M.D. [id number] Glucose [Mass/Vol] 100 mg/dL High 65-99 [facility] Comment on above: Order Comment: [facility] Services has implemented the eGFR calculation approach that does not have a coefficient for race that conforms to the NKF-ASN Task Force Recommendations. Performed By: #### 4 [id number] #### [facility] [address] [place] [address] 48152 Emmanuel Plaat M.D. [id number] HCO3 (Bld) [Moles/Vol] 25 mmol/L Normal 21-32 [facility] Comment on above: Order Comment: [facility] Services has implemented the eGFR calculation approach that does not have a coefficient for race that conforms to the NKF-ASN Task Force Recommendations. Performed By: #### 4 [id number] #### [facility] [address] [place], [place] [address] Emmanuel Plata M.D. [id number] Potassium [Moles/Vol] 3.8 mmol/L Normal 3.5-5.1 [facility] Comment on above: Order Comment: [facility] Services has implemented the eGFR calculation approach that does not have a coefficient for race that conforms to the NKF-ASN Task Force Recommendations. Performed By: #### 4 [id number] #### [facility] [address] [place], [place] [address] Emmanuel Plata M.D. [id number] Sodium [Moles/Vol] 139 mmol/L Normal 135-145 [facility] Comment on above: Order Comment: [facility] Services has implemented the eGFR calculation approach that does not have a coefficient for race that conforms to the NKF-ASN Task Force Recommendations. Performed By: #### 4 [id number] #### [facility] [address] [place] [address] Emmanuel Plata M.D. [id number] Urea nitrogen [Mass/Vol] 20 mg/dL Normal 8-25 [facility] Comment on above: Order Comment: [facility] Services has implemented the eGFR calculation approach that does not have a coefficient for race that conforms to the NKF-ASN Task Force Recommendations. Performed By: #### 4 [id number] #### [facility] [address] [place] [address] 307[address] Emmanuel Plata M.D. [id number] Urea nitrogen/Creatinine [Mass ratio] 17.9 mg/mg Normal 10.0-20.0 [facility] Comment on above: Order Comment: [facility] Services has implemented the eGFR calculation approach that does not have a coefficient for race that conforms to the NKF-ASN Task Force Recommendations. Performed By: #### 4 [id number] #### [facility] [address] [place] [address] 59501 Emmanuel Plata M.D. [id number] CONSULTon 03-14-2025 CONSULT --- Attestation signed by Ben Hahn MD at 03/14/2025 4:44 PM Interventional & Peripheral Vascular Cardiology Tristin Powell is a 85 y.o. male with a past medical history significant for CAD with prior CABG, hypertension, stage III CKD, hyperlipidemia, heart failure with preserved ejection fraction, paroxysmal atrial fibrillation, and advanced PAD who presents with [place] 4 critical limb threatening ischemia of the [...] He underwent angiography 2 days ago in [place] where he was found to have progressive [...] Arthritis Avascular necrosis of bone of hip ([facility]) Claudication COPD (chronic obstructive pulmonary disease) ([facility]) Coronary artery disease Herpes zoster Hyperlipidemia Hypertension PAD (peripheral artery disease) ([facility]) 01/21/2022 Posterior tibial tendinitis of right leg 11/07/2022 Prostate cancer ([facility]) Vascular disease Allergies: Doxycycline and Gabapentin Current [...] artery as it enters the foot. Impression: [place] 4 critical limb threatening ischemia Advanced peripheral [...] vascular surgery colleagues I personally performed a [id number]-noye diagnostic evaluation on this patient on the [...] mg 650 mg Oral Q4H While awake KingwoodMuna denise MD 650 mg at 03/14/25 1456 HYDROmorphone (DILAUDID) injection 0.5 mg 0.5 mg Intravenous Q3H PRN KingwoodMuna denise MD naloxone (NARCAN) injection 0.1 mg 0.1 mg Intravenous PRN [place], Muna Bhatti MD And naloxone (NARCAN) injection 0.4 mg 0.4 mg Intravenous PRN [place]woodMuna MD ondansetron (ZOFRAN) injection 4 mg 4 mg Intravenous Q6H (more content not included)... Normal [facility] CONSULT --- Attestation signed by Mohsen Sarabia MD at 03/16/2025 10:33 AM Patient seen and examined. I have personally reviewed all pertinent labs, radiological studies and records. I have personally examined the patient and agree with resident/GAME ENGINEER/PA assessment and plan with the following additional findings. Pt known to me with CLTI of the RLE with rest pain and early ischemic skin changes. Plan for R fem tib bypass on Monday for limb salvage VASCULAR SURGERY CONSULT [facility]: [facility] [id number] Reason for Consult: RLE rest pain ASSESSMENT [...] left TMA who presented to [facility]/14/2025 with worsening RLE pain and [...] above work up -Discussed with Dr. Sarabia ____ Beena Barraza MD General Surgery Resident, PGY-2 [facility] Please contact surgical project management intern licensed occupational therapist 5PM-6AM and weekends - #[phone] Pager - #[phone] Admitted with these risk variables:None. Please see [...] Arthritis Avascular necrosis of bone of hip ([facility]) Claudication COPD (chronic obstructive pulmonary disease) ([facility]) Coronary artery disease Herpes zoster Hyperlipidemia Hypertension PAD (peripheral artery disease) ([facility]) 01/21/2022 Posterior tibial tendinitis of right leg 11/07/2022 Prostate cancer ([facility]) Vascular disease Past Surgical History: Procedure Laterality Date 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/08/2018 Procedure: LEFT MIDFOOT AMPUTATION; Surgeon: Flynn Mann DPM; Location: [facility] OR; Service: Podiatry ANKLE SURGERY Left BYPASS PERONEAL FEMORAL Right 09/07/2018 Procedure: BYPASS PERONEAL FEMORAL, RIGHT SAPHENOUS VEIN HARVEST, COMPLETION ANGIOGRAM; Surgeon: Mohsen Sarabia MD; Location: [facility] NEURO OR; Service: Cardiovascular CARDIAC CATHETERIZATION Left 09/05/2018 Procedure: Angio Lower Extremity; Surgeon: Ben Hahn MD; Location: [facility] VENEREAL DISEASE CONTROL HEAD; Service: Cardiovascular CARDIAC SURGERY 2017 triple bypass EGD N/A 10/10/2018 Procedure: ESOPHAGOGASTRODUODENOSC OPY; Surgeon: Ben Jensen MD; Location[place] [facility] [place]; Service: Gastroenterology EYE SURGERY Right 2015 [...] rise Extremiti (more content not included)... Normal [facility] ED Prov Noteon 03-14-2025 ED Prov Note ED PROVIDER NOTE [facility] EMERGENCY DEPARTMENT Patient Name: Tristin [...] Course User Index [EK] Elaine Macdonald MD [facility] Data: I saw and evaluated the patient. [...] Claudication - COPD (chronic obstructive pulmonary disease) ([facility]) - Coronary artery disease - Herpes zoster - Hyperlipidemia - Hypertension - PAD (peripheral artery disease) ([facility]) 01/21/2022 - Posterior tibial tendinitis of right leg 11/07/2022 - Prostate cancer ([facility]) - Vascular disease Past Surgical History: Procedure Laterality Date - 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/08/2018 Procedure: LEFT MIDFOOT AMPUTATION; Surgeon: Flynn Mann DPM; Location: [facility] OR; Service: Podiatry - ANKLE SURGERY Left - BYPASS PERONEAL FEMORAL Right 09/07/2018 Procedure: BYPASS PERONEAL FEMORAL, RIGHT SAPHENOUS VEIN HARVEST, COMPLETION ANGIOGRAM; Surgeon: Mohsen Sarabia MD; Location: [facility] NEURO OR; Service: Cardiovascular - CARDIAC CATHETERIZATION Left 09/05/2018 Procedure: Angio Lower Extremity; Surgeon: Ben Hahn MD; Location: [facility] VENEREAL DISEASE CONTROL HEAD; Service: Cardiovascular - CARDIAC SURGERY 2017 triple bypass - EGD N/A 10/10/2018 Procedure: ESOPHAGOGASTRODUODENO (more content not included)... Normal [facility] Gold Topon 03-14-2025 Extra Tube Hold for add-ons. [facility] Comment on above: Auto resulted. [facility] Friedman Topon 03-14-2025 Extra Tube Hold for add-ons. [facility] Comment on above: Auto resulted. INR Coag (PPP) [Relative abi e]on 03-14-2025 Interpretation and review of laboratory results Abnormal [facility] PT Coag (PPP) [Time] 14.6 s [facility] During the induction phase of oral anticoagulation, the INR may not reflect the anticoagulation status of the patient. Therapeutic ranges for INR's are: Most clinical situations: INR 2.0-3.0 Mechanical Prosthetic Valve: INR 2.5-3.5 Critical: INR >5.0 [facility] No Panel Informationon 03-14 [facility] PT/INRon 03-14-2025 INR Coag (PPP) [Relative time] 1.1 {INR} 0.8 - 1.1 [facility] INR Coag (PPP) [Relative time] 1.1 {INR} Normal 0.8-1.1 [facility] Comment on above: Order Comment: Thera peutic range for APTT's is 68 - 104 seconds Performed By: #### 4 [id number] #### [facility] [address] [place] [address] Emmanuel Plata M.D. [id number] PT Coag (PPP) [Time] 14.6 s High 11.8-14.3 [facility] Comment on above: Order Comment: Thera peutic range for APTT's is 68 - 104 seconds Performed By: #### 4 [id number] #### [facility] [address] [address] Emmanuel Plata M.D. [id number] US ANKLE/BRACHIAL INDICES EX TREMITY LIMITEDon 03-14-2025 US ANKLE/BRACHIAL INDICES EXTREMITY LIMITED Patient Info Name: Tristin Powell Age: 85 years : 1940 Gender: Male Exam Date: 03/14/2025 8:20 AM Patient Status: OUTPATIENT Site Location: [facility] Indications I73.9 - Peripheral vascular disease, unspecified Procedure Description 46263 Limited bilateral noninvasive physiologic studies of upper or lower extremity arteries with bidirectional Doppler/PVR waveform analysis at 1-2 levels. Plant Production Manager: Ernestina Campos RVT, [facility] Staff Ordering Physician: Mohsen Sarabia MD, RPVI [...] Segmental BP RIGHT Brachial A mmH RIGHT SNATH HANDLE ASSEMBLER mmH RIGHT SNATH HANDLE ASSEMBLER Index: 0.31 RIGHT DPA mmH RIGHT DPA Index: 0.50 RIGHT Digit mmH RIGHT YAMILE Index: 0.50 RIGHT TBI Index: 0.00 LEFT Brachial A mmH LEFT SNATH HANDLE ASSEMBLER Index: 0.40 LEFT SNATH HANDLE ASSEMBLER mmH LEFT DPA Index: 0.55 LEFT DPA mmH LEFT YAMILE Index: 0.55 Doppler RIGHT SNATH HANDLE ASSEMBLER Waveform: Monophasic RIGHT DPA Waveform: Monophasic LEFT SNATH HANDLE ASSEMBLER Waveform: Monophasic LEFT DPA Waveform: Biphasic , PVR RIGHT Ankle Grade: Abnormal RIGHT Transmetarsal Grade: Absent RIGHT Digit (PPG) Grade: Absent LEFT Ankle Grade: Abnormal Prior Interventions 09/07/2018 bypass graft- left fem-peroneal. Report Signatures Finalized by DENIZ Tovar DOT, RPVI, FSVM on 03/14/2025 11:55 AM Normal [facility] ANKLE/BRACHIAL INDICES EXTREMITY LIMITED Patient Info Name: Tristin Powell Age: 85 years : 1940 Gender: Male Exam Date: 03/14/2025 8:20 AM Patient Status: OUTPATIENT Site Location: [facility] Indications I73.9 - Peripheral vascular disease, unspecified Procedure Description 36658 Limited bilateral noninvasive physiologic studies of upper or lower extremity arteries with bidirectional Doppler/PVR waveform analysis at 1-2 levels. Plant Production Manager: Ernestina Campos RVT, [facility] Staff Ordering Physician: Mohsen Sarabia MD, NATANAEL [...] Segmental BP RIGHT Brachial A mmH RIGHT SNATH HANDLE ASSEMBLER mmH RIGHT SNATH HANDLE ASSEMBLER Index: 0.31 RIGHT DPA mmH RIGHT DPA Index: 0.50 RIGHT Digit mmH RIGHT YMAILE Index: 0.50 RIGHT TBI Index: 0.00 LEFT Brachial A mmH LEFT SNATH HANDLE ASSEMBLER Index: 0.40 LEFT SNATH HANDLE ASSEMBLER mmH LEFT DPA Index: 0.55 LEFT DPA mmH LEFT YAMILE Index: 0.55 Doppler RIGHT SNATH HANDLE ASSEMBLER Waveform: Monophasic RIGHT DPA Waveform: Monophasic LEFT SNATH HANDLE ASSEMBLER Waveform: Monophasic LEFT DPA Waveform: Biphasic , PVR RIGHT Ankle Grade: Abnormal RIGHT Transmetarsal Grade: Absent RIGHT Digit (PPG) Grade: Absent LEFT Ankle Grade: Abnormal Prior Interventions 09/07/2018 bypass graft- left fem-peroneal. Report Signatures Finalized by Radha Lomas DO, RVT, RPVI, FSVM on 03/14/2025 11:55 AM Dictated by: RADHA SU on MonMar 14, 2025 11:55:02 AM EDT Transcribed by: RADHA SU on MonMar 14, 2025 11:55:02 AM EDT Finalized by: RADHA SU on MonMar 14, 2025 11:55:02 AM EDT Normal [facility] US DUPLEX ARTERIAL LEG RIGHT on 03-14-2025 US DUPLEX ARTERIAL LEG RIGHT Patient Info Name: Tristin Powell Age: 85 years : 1940 Gender: Male Exam Date: 03/14/2025 8:20 AM Patient Status: OUTPATIENT Site Location: [facility] Indications I73.9 - Peripheral vascular disease, unspecified Procedure Description 87462 Duplex scan of lower extremity arteries or arterial bypass grafts using B-mode, color and spectral Doppler; unilateral or limited study. Plant Production Manager: Ernestina Campos RVT, [facility] Staff Ordering Physician: Mohsen Sarabia MD, RPVI Conclusions * 50-99% stenosis in the right mid superficial femoral artery. * Unable to obtain right external iliac artery images due to bandaging from recent procedure. Risk Factors Patient with a history of hypertension, hyperlipidemia, CAD and PAD. Measurements RIGHT ODD JOB WORKER PSV (cm/s): 115 RIGHT ODD JOB WORKER EDV (cm/s): 7 RIGHT Prox PFA PSV [...] Distal LAUREL EDV (cm/s): 6 RIGHT Prox SNATH HANDLE ASSEMBLER PSV (cm/s): 81 RIGHT Prox SNATH HANDLE ASSEMBLER EDV (cm/s): 14 RIGHT Mid SNATH HANDLE ASSEMBLER PSV (cm/s): 38 RIGHT Mid SNATH HANDLE ASSEMBLER EDV (cm/s): 6 RIGHT Distal SNATH HANDLE ASSEMBLER PSV (cm/s): 57 RIGHT Distal SNATH HANDLE ASSEMBLER EDV (cm/s): 20 RIGHT Prox Gabriela PSV [...] INOCENCIO, RPLUIZA, FSVM on 03/14/2025 11:57 AM [facility] US DUPLEX ARTERIAL LEG RIGHT Patient Info Name: Tristin Powell Age: 85 years : 1940 Gender: Male Exam Date: 03/14/2025 8:20 AM Patient Status: OUTPATIENT Site Location: [facility] Indications I73.9 - Peripheral vascular disease, unspecified Procedure Description 86024 Duplex scan of lower extremity arteries or arterial bypass grafts using B-mode, color and spectral Doppler; unilateral or limited study. Plant Production Manager: Ernestina Campos RVT, [facility] Staff Ordering Physician: Mohsen Sarabia MD, NATANAEL Conclusions * 50-99% stenosis in the right mid superficial femoral artery. * Unable to obtain right external iliac artery images due to bandaging from recent procedure. Risk Factors Patient with a history of hypertension, hyperlipidemia, CAD and PAD. Measurements RIGHT ODD JOB WORKER PSV (cm/s): 115 RIGHT ODD JOB WORKER EDV (cm/s): 7 RIGHT Prox PFA PSV [...] Distal LAUREL EDV (cm/s): 6 RIGHT Prox SNATH HANDLE ASSEMBLER PSV (cm/s): 81 RIGHT Prox SNATH HANDLE ASSEMBLER EDV (cm/s): 14 RIGHT Mid SNATH HANDLE ASSEMBLER PSV (cm/s): 38 RIGHT Mid SNATH HANDLE ASSEMBLER EDV (cm/s): 6 RIGHT Distal SNATH HANDLE ASSEMBLER PSV (cm/s): 57 RIGHT Distal SNATH HANDLE ASSEMBLER EDV (cm/s): 20 RIGHT Prox Gabriela PSV [...] on MonMar 14, 2025 11:57:02 AM EDT [facility] SAPHENOUS VEIN MAPon - US SAPHENOUS VEIN MAP Patient Info Name: Tristin Pwoell Age: 85 years : 1940 Gender: Male Exam Date: 03/14/2025 9:26 PM Patient Status: INPATIENT Site Location: [facility] Indications Z01.810 - Encounter for preprocedural cardiovascular examination Procedure Description 00216 Duplex examination using B-mode, color and spectral Doppler of extremity veins including responses to compression and other maneuvers; complete bilateral study. Plant Production Manager: Cristian Ellis Latricia, [facility] Staff Ordering Physician: Beena Barraza Conclusions * [...] on MonMar 16, 2025 11:15:31 AM EDT [facility] US UE VEIN MAPon 03-14-2025 UE VEIN MAP Patient Info Name: Tristin Powell Age: 85 years : 1940 Gender: Male Exam Date: 03/14/2025 9:20 PM Patient Status: INPATIENT Site Location: [facility] Indications Z01.810 - Encounter for preprocedural cardiovascular examination Procedure Description 32055 Duplex examination using B-mode, color and spectral Doppler of extremity veins including responses to compression and other maneuvers; complete bilateral study. Plant Production Manager: Cristian Ellis RVT, [facility] Staff Ordering Physician: Beena Barraza Conclusions * [...] on MonMar 16, 2025 11:14:40 AM EDT Finalized by: AARON HEIN on MonMar 16, 2025 11:14:40 AM EDT Normal [facility] Basic Metabolic Panelon 02-25 Creatinine Clr Calc Pharmacy 66.99 Normal [facility] Comment on above: Result Comment: PERF ORMED BY: [facility] [address] [place] [address] PATHOLOGIST ARCHITECTURE ANALYST MAXIM HERNANDEZ M.D. Performed By: #### C BC, BMP ####[address] [place] [address] [facility] GFR/1.73 sq M.predicted MDRD (S/P/Bld) [Vol rate/Area] mL/min/{1.73_m2} Normal [facility] Comment on above: Performed By: #### C BC, BMP ####[address] [address] [place] Basophils [#/volume] in Bloo d by Automated countOrdered By: Duke Hector on 03-12-2025 Basophils (Bld) [#/Vol] 0.0 10*3/uL Normal 0.0-0.2 [facility] Comment on above: Result Comment: PERF ORMED BY: [facility] [address] [place] [address] PATHOLOGIST ARCHITECTURE ANALYST MAXIM HERNANDEZ M.D. Performed By: #### C BC, BMP ####[address] [place] [address] [facility] Basophils/100 leukocytes in Blood by Automated countOrdered By: Duke Hector on 03-12-2025 Basophils/100 WBC (Bld) 1.1 % Normal . [facility] Comment on above: Performed By: #### C BC, BMP ####[address] [place] [address] [place] Calcium [Mass/volume] in Ser um or PlasmaOrdered By: Duke Hector on 03-12-2025 Calcium [Mass/Vol] 9.4 mg/dL Normal 8.6-10.3 [facility] Comment on above: Performed By: #### C BC, BMP ####[id number] [facility] Carbon dioxide, total [Moles /volume] in Serum or PlasmaOrdered By: Duke Hector on 03-12-2025 CO2 [Moles/Vol] 26.4 mmol/L Normal 21.0-31.0 [facility] Comment on above: Performed By: #### C BC, BMP ####[id number] [facility] Chloride [Moles/volume] in S roger or PlasmaOrdered By: Duke Hector on 03-12-2025 Chloride [Moles/Vol] 105 mmol/L Normal 98-107 [facility] Comment on above: Performed By: #### C BC, BMP ####[id number] [facility] Complete Blood Count Auto Di ffon 03-12-2025 Mean Corpuscular HGB Conc 34.7 g/dL Normal 32.5-35.6 [facility] Comment on above: Performed By: #### C BC, BMP ####[id number] [facility] NRBC% 0.3 /100{WBC} Normal 0-0.5 [facility] Comment on above: Performed By: #### C BC, BMP ####[id number] [facility] White Blood Count 2.4 [CFU]/mL Low 4.1-10.5 [facility] Comment on above: Performed By: #### C BC, BMP ####[id number] [facility] Creatinine [Mass/volume] in Serum or PlasmaOrdered By: Duke Hector on 03-12-2025 Creatinine [Mass/Vol] 1.06 mg/dL Normal 0.70-1.30 [facility] Comment on above: Performed By: #### C BC, BMP ####[id number] [facility] ECG 12 lead ECGon 03-12-2025 ECG 12 lead ECG [facility] [address] [place] [address] Electrocardiograph Report Signed Patient: Tristin Powell MR#: [id number] : 1940 Acct:[id number] Age/Sex: 85 / M ADM Date: 03/12/25 Loc: [place] Room: Type: [facility] Attending Dr: Cristian Beaver MD Ordering Provider: [...] QT Abnormal ECG Confirmed by Mell Jackson ([id number]) on 03/13/2025 4:30:37 PM Referred By: Electronically Signed By: Mell Jackson Transcribed By: MUS Signed By Mell Jackson MD 5 1630 Normal [facility] Eosinophils [#/volume] in Bl ood by Automated countOrdered By: Duke Hector on 03-12-2025 Eosinophils (Bld) [#/Vol] 0.1 10*3/uL Normal 0.0-0.45 [facility] Comment on above: Performed By: #### C MERISSA, BMP ####[facility] [id number] [facility] Eosinophils/100 leukocytes i n Blood by Automated countOrdered By: Duke Hector on 03-12-2025 Eosinophils/100 WBC (Bld) 5.7 % Normal . [facility] Comment on above: Performed By: #### C MERISSA, BMP ####[facility] [id number] [facility] Erythrocyte distribution wid th [Ratio] by Automated countOrdered By: Duke Hector on 03-12-2025 Erythrocyte distribution width (RBC) [Ratio] 14.7 % Normal 12.0-14.8 [facility] Comment on above: Performed By: #### C BC, BMP ####[id number] [facility] Erythrocytes [#/volume] in B lood by Automated countOrdered By: Duke Hector on 03-12-2025 RBC (Bld) [#/Vol] 4.29 10*6/uL Normal 3.90-5.60 [facility] Comment on above: Performed By: #### C MERISSA, BMP ####[id number] [facility] Glucose [Mass/volume] in Ser um or PlasmaOrdered By: Duke Hector on 03-12-2025 Glucose [Mass/Vol] 109 mg/dL High 70-100 [facility] Comment on above: ADA recommended refe rence rangeRandom Glucose Reference Range is dependent on time and content of last meal. Glucose of more than 200 mg/dL in a nonstressed, ambulatory subject supports the diagnosis of Diabetes Mellitus. Result Comment: [place] om Glucose Reference Range is dependent on time and content of last meal. Glucose of more than 200 mg/dL in a nonstressed, ambulatory subject supports the diagnosis of Diabetes Mellitus. ADA recommended reference range Performed By: #### C MERISSA, BMP ####[id number] [facility] Hematocrit [Volume Fraction] of Blood by Automated countOrdered By: Duke Hector on 03-12-2025 Hematocrit (Bld) [Volume fraction] 38.6 % Low 38.8-50.0 [facility] Comment on above: Performed By: #### C MERISSA, BMP ####[address] [place] [address] [facility] Hemoglobin [Mass/volume] in BloodOrdered By: Duke Hector on 03-12-2025 Hemoglobin (Bld) [Mass/Vol] 13.4 g/dL Normal 13.0-17.0 [facility] Comment on above: Performed By: #### C MERISSA, BMP ####[id number] [facility] Leukocytes [#/volume] correc maximilian for nucleated erythrocytes in Blood by Automated counOrdered By: Duke Hector on 03-12-2025 WBC corrected for nucl RBC Auto (Bld) [#/Vol] 2.4 10*3/uL Low 4.1-10.5 [facility] Leukocytes [#/volume] in Blo od by Automated countOrdered By: Duke Hector on 03-12-2025 WBC (Bld) [#/Vol] 2.4 10*3/uL Low 4.1-10.5 [facility] Comment on above: Performed By: #### C MERISSA, BMP ####[address] Lymphocytes [#/volume] in Bl ood by Automated countOrdered By: Duke Hector on 03-12-2025 Lymphocytes (Bld) [#/Vol] 0.5 10*3/uL Low 1.00-4.8 [facility] Comment on above: Performed By: #### C MERISSA, BMP ####[address] Lymphocytes/100 leukocytes i n Blood by Automated countOrdered By: Duke Hector on 03-12-2025 Lymphocytes/100 WBC (Bld) 22.3 % Normal . [facility] Comment on above: Performed By: #### C MERISSA, BMP ####[id number] [facility] MCH [Entitic mass] by Automa maximilian countOrdered By: Duke Hector on 03-12-2025 MCH (RBC) [Entitic mass] 31.2 pg Normal 27.5-35.2 [facility] Comment on above: Performed By: #### C MERISSA, BMP ####[id number] [facility] MCHC Auto (RBC) [Mass/Vol]Or dered By: Duke Hector on 03-12-2025 MCHC (RBC) [Mass/Vol] 34.7 g/dL 32.5-35.6 [facility] MCV [Entitic volume] by Auto mated countOrdered By: Duke Hector on 03-12-2025 MCV (RBC) [Entitic vol] 90.0 fL Normal 83.5-101 [facility] Comment on above: Performed By: #### C MERISSA, BMP ####[address] Monocytes [#/volume] in Bloo d by Automated countOrdered By: Duke Hector on 03-12-2025 Monocytes (Bld) [#/Vol] 0.6 10*3/uL Normal 0.0-0.8 [facility] Comment on above: Performed By: #### C BC, BMP ####[id number] [facility] Monocytes/100 leukocytes in Blood by Automated countOrdered By: Duke Hector on 03-12-2025 Monocytes/100 WBC (Bld) 23.1 % Normal . [facility] Comment on above: Performed By: #### C MERISSA, BMP ####[id number] [facility] Neutrophils [#/volume] in Bl ood by Automated countOrdered By: Duke Hector on 03-12-2025 Neutrophils (Bld) [#/Vol] 1.2 10*3/uL Low 1.8-7.7 [facility] Comment on above: Performed By: #### C MERISSA, BMP ####[id number] [facility] Neutrophils/100 leukocytes i n Blood by Automated countOrdered By: Duke Hector on 03-12-2025 Neutrophils/100 WBC (Bld) 47.8 % Normal . [facility] Comment on above: Performed By: #### C MERISSA, BMP ####[id number] [facility] No Panel InformationOrdered By: Duke Hector on 03-12-2025 Estimated GFR (CKD-EPI) > 60.0 mL/Min [facility] Creatinine Clearance (Chem 66.99 [facility] Nucleated erythrocytes [Pres ence] in Blood by Automated countOrdered By: Duke Hector on 03-12-2025 Nucleated RBC Auto Ql (Bld) 0.3 /100{WBC} 0-0.5 [facility] Platelet mean volume [Entiti c volume] in Blood by Automated countOrdered By: Duke Hector on 03-12-2025 Platelet mean volume (Bld) [Entitic vol] 7.6 fL Normal 6.6-10.1 [facility] Comment on above: Performed By: #### C MERISSA, BMP ####[id number] [facility] Platelets [#/volume] in Bloo d by Automated countOrdered By: uDke Hector on 03-12-2025 Platelets (Bld) [#/Vol] 166 10*3/uL Normal 150-450 [facility] Comment on above: Performed By: #### C MERISSA, BMP ####[address] Potassium [Moles/volume] in Serum or PlasmaOrdered By: Duke Hector on 03-12-2025 Potassium [Moles/Vol] 4.4 mmol/L Normal 3.5-5.1 [facility] Comment on above: Performed By: #### C MERISSA, BMP ####[id number] [facility] Serum or plasma anion gap de terminationOrdered By: Duke Hector on 03-12-2025 Anion gap [Moles/Vol] 11.0 mmol/L Normal 6.0-15.0 [facility] Comment on above: Performed By: #### C MERISSA, BMP ####[id number] [place] Sodium [Moles/volume] in Ser um or PlasmaOrdered By: Duke Hector on 03-12-2025 Sodium [Moles/Vol] 138 mmol/L Normal 136-145 [facility] Comment on above: Performed By: #### C MERISSA, BMP ####[id number] [facility] Urea nitrogen [Mass/volume] in Serum or PlasmaOrdered By: Duke Hector on 03-12-2025 Urea nitrogen [Mass/Vol] 22 mg/dL Normal 7-25 [facility] Comment on above: Performed By: #### C BC, BMP ####[facility] [id number] [facility] CULTURE, URINE, ROUTINEon CULTURE, URINE, ROUTINE SEE NOTE Normal [facility] Comment on above: Result Comment: CULTURE, URINE, ROUTINE Micro Number: [id number] Test Status: Final Specimen Source: Urine Specimen Quality: Adequate Result: No Growth Performed By: #### 3 95 #### [facility] [address], [address] [place] [address] Research Neuropsychologist: Gene Liang MD PSA, TOTALon 01-10-2025 PSA, TOTAL <0.04 Normal < OR = 4.00 [facility] Comment on above: Result Comment: The total PSA value from this assay system is standardized against the WHO standard. The test result will be approximately 20% lower when compared to the equimolar-standardized total PSA (Starr Dmoinguez). Comparison of serial PSA results should be interpreted with this fact in mind. This test was performed using the Siemens chemiluminescent method. Values obtained from different assay methods cannot be used interchangeably. PSA levels, regardless of value, should not be interpreted as absolute evidence of the presence or absence of disease. Performed By: #### 5 363 #### [facility] [address], [address] [place] [id number] Research Neuropsychologist: Gene Liang MD Urinalysis macro (dipstick) panel (U)on 01-09-2025 Bilirubin, UA Negative Negative - 4(70) +++ mg/dL [facility] Blood, UA Negative Negative - 50 Donovan/mcL [facility] Clarity, UA Clear [facility] Color, UA Light Yellow [facility] Glucose, UA Negative Negative - 1999(110) ++++ mg/dL [facility] Interpretation and review of laboratory results Normal [facility] Ketones, UA Negative Negative - 160(16) ++++ mg/dL [facility] Leukocytes, UA Negative Negative - 500+++ Adarsh/mcL [facility] Nitrite, UA Negative Negative - Positive [facility] pH, UA 7.5 5 - 9 [facility] Protein, UA Negative Negative - 1999(20) ++++ mg/dL [facility] Spec Grav, UA 1 1 - 1.03 [facility] Urobilinogen, UA 0.2 0.2 - 12 mg/dL [place] [facility] Office Visiton 12-18-2024 Follow-up visit [id number] Tristin Powell 1940 M Date Provider Department Center 12/18/2024 ELIEZER MIXNO BENOIT [facility] Family History Problem Relation Age of Onset Coronary artery disease Other Hyperlipidemia Other Hypertension Other Family Status - Relation Status Age at Other Level of Service:77698 [place] OFFICE/OUTPATIENT ESTABLISHED LOW MDM 20 MIN Normal [facility] US ankle/arm indiceson 07-29 US ankle/arm indices [facility] [address] [place] [address] Ultrasound Report Signed Patient: Tristin Powell MR#: [id number] : 1940 Acct:[id number] Age/Sex: 84 / M ADM Date: 07/29/24 Loc: [facility] Room: Type: [facility] Attending Dr: Cristian Beaver MD Ordering Provider: [...] Cristian Beaver M.D.07/29/2024 11:33 AM Dictation Location: [place] [address] Tech: Viviana Stewart Transcribed By: VICENTE 07/29/24 1133 Dictated By: Cristian Beaver MD 07/29/24 1132 Signed By: 07/29/24 1133 Normal [facility] US arterial duplex LE LTon 1 09-29-2023 US arterial duplex LE LT [facility] [address] [place], [place] [id number] Ultrasound Report Signed Patient: Tristin Powell MR#: [id number] : 1940 Acct:[id number] Age/Sex: 84 / M ADM Date: 07/29/24 Loc: [facility] Room: Type: [facility] Attending Dr: Cristian Beaver MD Ordering Provider: [...] Cristian Beaver M.D.07/29/2024 11:35 AM Dictation Location: [place] [address] Tech: Gaby Castro Transcribed By: VICENTE 07/29/24 1135 Dictated By: Cristian Beaver MD 07/29/24 1133 Signed By: 07/29/24 1135 Normal [facility] US carotid doppler BIon 12- US carotid doppler BI [facility] [address] [place], [place] [phone] Ultrasound Report Signed Patient: Tristin Powell MR#: [id number] : 1940 Acct:[id number] Age/Sex: 84 / M ADM Date: 07/29/24 Loc: [facility] Room: Type: [facility] Attending Dr: Cristian Beaver MD Ordering Provider: [...] Cristian Beaver M.D.07/29/2024 11:31 AM Dictation Location: [place] [address] Tech: Gaby Castro Transcribed By: VICENTE 07/29/24 1131 Dictated By: Cristian Beaver MD 07/29/24 1130 Signed By: 07/29/24 1131 Normal [facility] Office Visiton 07-22-2024 Follow-up visit [id number] Tristin Powell 1940 [facility] Provider Department Center 07/22/2024 ELIEZER MIXON BENOIT [place] Family History Problem Relation Age of Onset Coronary artery disease Other Hyperlipidemia Other Hypertension Other Family Status - Relation Status Age at Other Level of Service:63328 [place] OFFICE/OUTPATIENT ESTABLISHED LOW [facility] 20 MIN Normal [facility] 36on 07-18-2024 36 LM for patient to return my call. Normal [facility] 36on 07-17-2024 36 Please let him know his ECHO looked okay. Labs showed some mild elevation in inflammatory labs. Is he still experiencing chest pains? If so, we can try to start him on something short term to help. Thanks! [facility] Telephoneon 07-17-2024 Telephone [id number] Tristin Powell 1940 M [facility] Provider Department Center 07/17/2024 RUSSEL ADAIR Neftali Family History Problem Relation Age of Onset Coronary artery disease Other Hyperlipidemia Other Hypertension Other Family Status - Relation Status Age at Other [facility] ALL BASIC METABOLIC PANELon 07-11-2024 Anion gap [Moles/Vol] 15.1 mmol/L [facility] Calcium [Mass/Vol] 8.9 mg/dL 8.5 - 10. 1 mg/dL [facility] Chloride [Moles/Vol] 108 mmol/L High 98 - 10 7 mmol/L [facility] CO2 [Moles/Vol] 27.3 mmol/L 21.0 - 32.0 mmol/L [facility] Creatinine [Mass/Vol] 1.32 mg/dL High 0.70 - 1.30 mg/dL [facility] GFR/1.73 sq M.predicted CKD-EPI (S/P/Bld) [Vol rate/Area] >60 >=60 mL/min/1.73m 2 [facility] Glucose [Mass/Vol] 94 mg/dL 74 - 106 mg/dL [facility] Interpretation and review of laboratory results Abnormal [facility] Potassium [Moles/Vol] 4.4 mmol/L 3.5 - 5.1 mmol/L [facility] Sodium [Moles/Vol] 146 mmol/L High 136 - 145 mmol/L [facility] EGFR-NON AF SCOTTISH 52 Low >=60 mL/min/1.73m 2 [facility] Urea nitrogen [Mass/Vol] 15 mg/dL 7.0 - 18.0 mg/dL [facility] Urea nitrogen/Creatinine [Mass ratio] 11.4 mg/mg [facility] ALL CBC WITH AUTO DIFFon Erythrocyte distribution width (RBC) [Ratio] 13.9 % 11.0 - 15.0 % [facility] Hematocrit (Bld) [Volume fraction] 40.9 % Low 42.0 - 54.0 % [facility] Hemoglobin (Bld) [Mass/Vol] 13.9 g/dL Low 14.0 - 18.0 g/dL [facility] MCH (RBC) [Entitic mass] 31.1 pg 25.9 - 34.0 pg [facility] MCHC (RBC) [Mass/Vol] 34 g/dL 29.9 - 35.2 g/dL [facility] MCV (RBC) [Entitic vol] 91.5 fL 80.0 - 94.0 fL [facility] Platelet mean volume (Bld) [Entitic vol] 9.5 fL 9.5 - 13.5 fL [facility] TBH PLT 169 [facility] TB RBC 4.47 Low [facility] TB WBC 3.3 Low [facility] ALL SED RATEon 07-11-2024 TBH SED RATE 20 NINF [facility] MHPT DIFFERENTIALon 07-11-20 24 BASOPHILS ABS MANUAL 0 [facility] BASOPHILS PERCENT MANUAL 0 % Low 0.2 - 2.0 % [facility] Eosinophils (Bld) [#/Vol] 0.13 10*3/uL [facility] EOSINOPHILS PERCENT MANUAL 4 % 0.9 - 7.0 % [facility] Lymphocytes (Bld) [#/Vol] 0.59 10*3/uL Low [facility] LYMPHOCYTES PERCENT MANUAL 18 % Low 20.5 - 60.0 % [facility] Monocytes (Bld) [#/Vol] 0.52 10*3/uL [facility] MONOCYTES PERCENT MANUAL 16 % High 1.7 - 12.0 % [facility] SEGMENTED NEUT ABSOLUTE MANUAL 2.04 [facility] SEGMENTED NEUTROPHILS % MANUAL 62 43.0 - 75.0 [facility] No Panel Informationon 07-11 Interpretation and review of laboratory results Abnormal [facility] Healthcare [facility] Healthcare HPon 07-10-2024 [facility] Cardiology Interv al Pre-procedural H&P H&P [...] were addressed and answered. Mabel Pino MD Animal Rescuer - PGY6 [facility] Tristin Powell is a 84 y.o. year old male patient being seen for 6 mo follow up CAD, PAD, AAA, HTN, and HLD. Had lipid panel Sep, 2023. He is now seeing vascular surgery in [place], Dr. Beaver. Problem List Patient Active Problem List Diagnosis Abdominal pain Chest pain Aortic valve regurgitation Mitral valve regurgitation Avascular necrosis of bone of hip (CMS/HCC) Community acquired pneumonia of left lower lobe of lung Contusion Hematoma of arm, left, initial encounter Coronary artery disease involving coronary bypass graft of [place] heart without angina pectoris Coronary artery disease involving [place] coronary artery of [place] heart without angina pectoris Coronary atherosclerosis Critical [...] instent restenosis. He then underwent CABG at [facility] in 2017 (CHAVEZ to diagonal, SVG to [...] lexiscan stress test done ordered by Dr. Juarez as he reports having a bad reaction to his last stress test. We offered a dobutamine stress ECHO that could be (more content not included)... [facility] NURSNOTEon 07-10-2024 ILIR Powell called stating he [...] Echo for chest pain R/O pericarditis. Notified [facility] to have echo and labs done at [place]. Called Tristin Powell explaining need for echo and labs. Instructed to go to ER if chest pain worsens. Normal [facility] ALL BASIC METABOLIC PANELon 07-03-2024 Anion gap [Moles/Vol] 13.4 mmol/L [facility] Calcium [Mass/Vol] 9.8 mg/dL 8.5 - 10. 1 mg/dL [facility] Chloride [Moles/Vol] 106 mmol/L 98 - 10 7 mmol/L [facility] CO2 [Moles/Vol] 27.4 mmol/L 21.0 - 32.0 mmol/L [facility] Creatinine [Mass/Vol] 1.33 mg/dL High 0.70 - 1.30 mg/dL [facility] GFR/1.73 sq M.predicted CKD-EPI (S/P/Bld) [Vol rate/Area] >60 >=60 mL/min/1.73m 2 [facility] Glucose [Mass/Vol] 110 mg/dL High 74 - 106 mg/dL [facility] Interpretation and review of laboratory results Abnormal [facility] Potassium [Moles/Vol] 4.8 mmol/L 3.5 - 5.1 mmol/L [facility] Sodium [Moles/Vol] 142 mmol/L 136 - 145 mmol/L [facility] TBH EGFR-NON AF SCOTTISH 51 Low >=60 mL/min/1.73m 2 [facility] Urea nitrogen [Mass/Vol] 16 mg/dL 7.0 - 18.0 mg/dL [facility] Urea nitrogen/Creatinine [Mass ratio] 12 mg/mg [facility] Orders Onlyon 07-02-2024 Orders Only [id number] Tristin Powell 1940 [facility] Provider Department Center 07/02/2024 Beronica7-CASSI MAIA [facility] [place] [facility] Family History Problem Relation Age of Onset Coronary artery disease Other Hyperlipidemia Other Hypertension Other Family Status - Relation Status Age at Other Normal [facility] Orders Onlyon 06-11-2024 Orders Only [id number] Tristin Powell 1940 [facility] [place] 06/11/2024 RUSSEL ADAIR Family History Problem Relation Age of Onset Coronary artery disease Other Hyperlipidemia Other Hypertension Other Family Status - Relation Status Age at Other Normal [facility] 36on 05-31-2024 36 Please let him know that I discussed our plan with Dr. Juarez, recommend proceeding with cardiac cath given the bump in his heart enzymes recently. We want to make sure nothing significant has changed. This will also help with planning any vascular surgery in the future. Thanks! [facility] Telephoneon 05-31-2024 Telephone [id number] Tristin Powell 1940 [facility] [place] 05/31/2024 RUSSEL ADAIR Family History Problem Relation Age of Onset Coronary artery disease Other Hyperlipidemia Other Hypertension Other Family Status - Relation Status Age at Other Normal [facility] Office Visiton 05-28-2024 Follow-up visit [id number] Tristin Powell 1940 [facility] [place] 05/28/2024 RUSSEL ADAIR Family History Problem Relation Age of Onset Coronary artery disease Other Hyperlipidemia Other Hypertension Other Family Status - Relation Status Age at Other Level of Service:49737 [place] OFFICE/OUTPATIENT ESTABLISHED MOD MDM 30 MIN Normal [facility] ALL MAGNESIUMon 05-14-2024 Magnesium [Mass/Vol] 2.1 mg/dL 1.6 - 2 .4 mg/dL [facility] Basic Metab w/rfx MGon 05-14 Anion gap [Moles/Vol] 10 mmol/L Normal 9-16 [facility] Comment on above: Performed By: #### T MARKI, CBC, MG, BMPX #### [facility] [address] [place] [address] Jewelry Salesperson: Mary Astorga MD #### GLYHGB #### [address] [address] Jewelry Salesperson: Kale Orona MD BUN/CRE Ratio 16 Normal 9-20 [facility] Comment on above: Performed By: #### T YARIEL, CBC, MG, BMPX #### [address] [place] [address] Jewelry Salesperson: Mary Astorga MD #### GLYHGB #### [address] [phone] Jewelry Salesperson: Kale Orona MD Calcium [Mass/Vol] 9.3 mg/dL Normal 8.6-10.4 [facility] Comment on above: Performed By: #### T MARKI, CBC, MG, BMPX #### [address] [place] [address] Jewelry Salesperson: Mary Astorga MD #### GLYHGB #### [address] [phone] Jewelry Salesperson: Kale Orona MD Chloride [Moles/Vol] 106 mmol/L Normal 98-107 [facility] Comment on above: Performed By: #### T ROPI, CBC, MG, BMPX #### [address] [place] [address] Jewelry Salesperson: Mary Astorga MD #### GLYHGB #### [place] [address] [place], [place] [phone] Jewelry Salesperson: Kale Orona MD CO2 [Moles/Vol] 23 mmol/L Normal 20-31 [facility] Comment on above: Performed By: #### T MARKI, CBC, MG, BMPX #### [address] [place] [address] Jewelry Salesperson: Mary Astorga MD #### GLYHGB #### [place] [address] [place], [place] [phone] Jewelry Salesperson: Kale Orona MD Creatinine [Mass/Vol] 1.1 mg/dL Normal 0.70-1.20 [facility] Comment on above: Performed By: #### T YARIEL, CBC, MG, BMPX #### [address] [place] [address] Jewelry Salesperson: Mary Astorga MD #### GLYHGB #### [place] [address] [place], [place] [phone] Jewelry Salesperson: Kale Orona MD GFR/1.73 sq M.predicted among non-blacks MDRD (S/P/Bld) [Vol rate/Area] 65 mL/min/{1.73_m2} Normal >60 [facility] Comment on above: Result Comment: These [...] renal tubular secretion. Performed By: #### T MARKI, CBC, MG, BMPX #### [address] [place], [place] [phone] Jewelry Salesperson: Mary Astorga MD #### GLYHGB #### [address] [phone] Jewelry Salesperson: Kale Orona MD Glucose [Mass/Vol] 90 mg/dL Normal 74-99 [facility] Comment on above: Performed By: #### T ROPI, CBC, MG, BMPX #### [address] [place] [phone] Jewelry Salesperson: Mary Astorga MD #### GLYHGB #### [address] [phone] Jewelry Salesperson: Kale Orona MD Potassium [Moles/Vol] 4.4 mmol/L Normal 3.7-5.3 [facility] Comment on above: Performed By: #### T ROPI, CBC, MG, BMPX #### [address] [place] [phone] Jewelry Salesperson: Mary Astorga MD #### GLYHGB #### [address] [address] Jewelry Salesperson: Kale Orona MD Sodium [Moles/Vol] 139 mmol/L Normal 136-145 [facility] Comment on above: Performed By: #### T ROPI, CBC, MG, BMPX #### [address] [place] [phone] Jewelry Salesperson: Mary Astorga MD #### GLYHGB #### [address] [phone] Jewelry Salesperson: Kale Orona MD Urea nitrogen [Mass/Vol] 18 mg/dL Normal 8-23 [facility] Comment on above: Performed By: #### T ROPI, CBC, MG, BMPX #### [address] [place], [place] [phone] Jewelry Salesperson: Mary Astorga MD #### GLYHGB #### [address] [phone] Jewelry Salesperson: Kale Orona MD Brain Natri. Peptideon 05-14 Natriuretic peptide B (Bld) [Mass/Vol] 980 pg/mL High 0-450 [facility] Comment on above: Performed By: #### L IPR #### [address] [address] Jewelry Salesperson: Kale Orona MD [facility] Erythrocyte distribution width (RBC) [Ratio] 14.8 % High 11.8-14.4 [facility] Comment on above: Performed By: #### T ROPI, CBC, MG, BMPX #### [address] [place] [phone] Jewelry Salesperson: Mary Astorga MD #### GLYHGB #### [address] [address] Jewelry Salesperson: Kale Orona MD Hematocrit (Bld) [Volume fraction] 38.8 % Low 40.7-50.3 [facility] Comment on above: Performed By: #### T ROPI, CBC, MG, BMPX #### [facility] [address] [place] [address] [place] [phone] Jewelry Salesperson: Mary Astorga MD #### GLYHGB #### [address] [address] Jewelry Salesperson: Kale Orona MD Hemoglobin (Bld) [Mass/Vol] 13.2 g/dL Normal 13.0-17.0 [facility] Comment on above: Performed By: #### T ROPI, CBC, MG, BMPX #### [facility] [address] [place] [address] [place] [address] Jewelry Salesperson: Mary Astorga MD #### GLYHGB #### [place] [address] [place], [place] [phone] Jewelry Salesperson: Kale Orona MD MCH (RBC) [Entitic mass] 30.6 pg Normal 25.2-33.5 [facility] Comment on above: Performed By: #### T ROPI, CBC, MG, BMPX #### [address] [place] [phone] Jewelry Salesperson: Mary Astorga MD #### GLYHGB #### [place] [phone] Jewelry Salesperson: Kale Orona MD MCHC (RBC) [Mass/Vol] 34.0 g/dL Normal 28.4-34.8 [facility] Comment on above: Performed By: #### T ROPI, CBC, MG, BMPX #### [address] [place] [phone] Jewelry Salesperson: Mary Astorga MD #### GLYHGB #### [place] [address] Jewelry Salesperson: Kale Orona MD MCV (RBC) [Entitic vol] 89.8 fL Normal 82.6-102.9 [facility] Comment on above: Performed By: #### T ROPI, CBC, MG, BMPX #### [address] [place] [phone] Jewelry Salesperson: Mary Astorga MD #### GLYHGB #### [place] [phone] Jewelry Salesperson: Kale Orona MD NRBC Automated 0.0 per 100 WBC Normal 0.0 [facility] Comment on above: Performed By: #### T ROPI, CBC, MG, BMPX #### [address] [place] [phone] Jewelry Salesperson: Mary Astorga MD #### GLYHGB #### [place] [phone] Jewelry Salesperson: Kale Orona MD Platelet mean volume (Bld) [Entitic vol] 9.8 fL Normal 8.1-13.5 [facility] Comment on above: Performed By: #### T ROPI, CBC, MG, BMPX #### [address] [place] [phone] Jewelry Salesperson: Mary Astorga MD #### GLYHGB #### [place] [address] Jewelry Salesperson: Kale Orona MD Platelets (Bld) [#/Vol] 153 10*3/uL Normal 138-453 [facility] Comment on above: Performed By: #### T ROPI, CBC, MG, BMPX #### [address] [place] [phone] Jewelry Salesperson: Mary Astorga MD #### GLYHGB #### [place] [address] Jewelry Salesperson: Kale Orona MD RBC (Bld) [#/Vol] 4.32 10*6/uL Normal 4.21-5.77 [facility] Comment on above: Performed By: #### T ROPI, CBC, MG, BMPX #### [address] [place] [phone] Jewelry Salesperson: Mary Astorga MD #### GLYHGB #### [place] [address] Jewelry Salesperson: Kale Orona MD WBC (Bld) [#/Vol] 4.0 10*3/uL Normal 3.5-11.3 [facility] Comment on above: Performed By: #### T ROPI, CBC, MG, BMPX #### [facility] [address] [place] [address] Jewelry Salesperson: Mary Astorga MD #### GLYHGB #### [facility] [address] [place] [address] Jewelry Salesperson: Kale Orona MD [facility] TROPONIN Ion 05-14-2024 Interpretation and review of laboratory results Abnormal [facility] TROPONIN, HIGH SENS 31 ng/L High 0 - 22 ng/L [facility] Comment on above: High Sensitivity Tro ponin values cannot be compared with other Troponin methodologies. [facility] BASIC METABOLIC PANEL R EFLEX MGon 05-14-2024 Anion gap [Moles/Vol] 10 mmol/L 9 - 16 mmol/L [facility] Calcium [Mass/Vol] 9.3 mg/dL 8.6 - 10. 4 mg/dL [facility] Chloride [Moles/Vol] 106 mmol/L 98 - 10 7 mmol/L [facility] CO2 [Moles/Vol] 23 mmol/L 20 - 31 mmol/L [facility] Creatinine [Mass/Vol] 1.1 mg/dL 0.70 - 1.20 mg/dL [facility] Glucose [Mass/Vol] 90 mg/dL 74 - 99 mg/dL [facility] BUN/CRE RATIO 16 9 - 20 [facility] EGFR 65 - PINF [facility] Comment on above: These results are [...] [Moles/Vol] 4.4 mmol/L 3.7 - 5.3 mmol/L [facility] Sodium [Moles/Vol] 139 mmol/L 136 - 145 mmol/L [facility] Urea nitrogen [Mass/Vol] 18 mg/dL 8 - 23 mg/dL [facility] Hemoglobin A1Con 05-14-2024 Glucose [Mass/Vol] 117 mg/dL Normal [facility] Comment on above: Result Comment: The ADA and AACC recommend providing the estimated average glucose result to permit better patient understanding of their HBA1c result. Performed By: #### T MARKI, CBC, MG, BMPX #### [facility] [address] [place], [place] [phone] Jewelry Salesperson: Mary Astorga MD #### GLYHGB #### [address] [phone] Jewelry Salesperson: Kale Orona MD HbA1c (Bld) [Mass fraction] 5.7 % Normal 4.0-6.0 [facility] Comment on above: Performed By: #### T YARIEL, CBC, MG, BMPX #### [address] [place] [address] Jewelry Salesperson: Mary Astorga MD #### GLYHGB #### [address] [phone] Jewelry Salesperson: Kale Orona MD Lipid Profileon 05-14-2024 Cholesterol [Mass/Vol] 131 mg/dL Normal 0-199 [facility] Comment on above: Result Comment: Cholesterol Guidelines: <200 Desirable 200-240 Borderline >240 Undesirable Performed By: #### L IPR #### [address] [address] Jewelry Salesperson: Kale Orona MD Cholesterol in HDL [Mass/Vol] 41 mg/dL Normal >40 [facility] Comment on above: Result Comment: HDL Guidelines: <40 Undesirable 40-59 Borderline >59 Desirable Performed By: #### L IPR #### [address] [address] Jewelry Salesperson: Kale Orona MD Cholesterol in LDL [Mass/Vol] 73 mg/dL Normal 0-100 [facility] Comment on above: Result Comment: LDL Guidelines: <100 Desirable 100-129 Near to/above Desirable 130-159 Borderline >159 Undesirable Direct (measured) LDL and calculated LDL are not interchangeable tests. Performed By: #### L IPR #### [address] [place] [address] Jewelry Salesperson: Kale Orona MD Cholesterol in VLDL [Mass/Vol] 17 mg/dL Normal [facility] Comment on above: Performed By: #### L IPR #### [facility] [address] [place] [address] Jewelry Salesperson: Kale Orona MD Cholesterol.total/Cho lesterol in HDL [Mass ratio] 3.0 {ratio} Normal [facility] Comment on above: Performed By: #### L IPR #### [address] [address] Jewelry Salesperson: Kale Orona MD Triglyceride [Mass/Vol] 85 mg/dL Normal <150 [facility] Comment on above: Result Comment: Triglyceride Guidelines: <150 Desirable 150-199 Borderline 200-499 High >499 Very high Based on AHA Guidelines for fasting triglyceride, May 2012. Performed By: #### L IPR #### [address] [address] Jewelry Salesperson: Kale Orona MD Magnesiumon 05-14-2024 Magnesium [Mass/Vol] 2.1 mg/dL Normal 1.6-2.4 [facility] Comment on above: Performed By: #### T ROPI, CBC, MG, BMPX #### [facility] [address] [place] [address] Jewelry Salesperson: Mary Astorga MD #### GLYHGB #### [place] [address] [place] [address] Jewelry Salesperson: Kale Orona MD No Panel Informationon 05-14 Original Ordering Provider: RAFAELA Ontiveros CNP MELANI [facility] Troponinon 05-14-2024 Troponin, High Sens 28 ng/L High 0-22 [facility] Comment on above: Result Comment: High Sensitivity Troponin values cannot be compared with other Troponin methodologies. Performed By: #### L IPR #### [address] [phone] Jewelry Salesperson: Kale Orona MD Troponin, High Sens 31 ng/L High 0-22 [facility] Comment on above: Result Comment: High Sensitivity Troponin values cannot be compared with other Troponin methodologies. Performed By: #### T ROPI, CBC, MG, BMPX #### [facility] [address] [place] [address] Jewelry Salesperson: Mary Astorga MD #### GLYHGB #### [facility] [address] [place], [place] [phone] Jewelry Salesperson: Kale Orona MD ALL PROTIME/INRon 05-13-2024 Interpretation and review of laboratory results Abnormal [facility] MHPT INR 1.2 [facility] Comment on above: Therapeutic Range: Moderate Anticoagulant Intensity: INR = 2.0-3.0 High Anticoagulant Intensity: INR = 2.5-3.5 MHPT PROTHROMBIN TIME 14.8 High [facility] Original Ordering Provider: RAFAELA JOHN [facility] Basic Metab w/rfx MGon 05-13 Anion gap [Moles/Vol] 11 mmol/L Normal 9-16 [facility] Comment on above: Performed By: #### B MPX, PT, CBC #### [facility] [address] [place] [address] Jewelry Salesperson: Mary Astorga MD BUN/CRE Ratio 16 Normal 9-20 [facility] Comment on above: Performed By: #### B MPX, PT, CBC #### [facility] [address] [place] [address] Jewelry Salesperson: Mary Astorga MD Calcium [Mass/Vol] 9.5 mg/dL Normal 8.6-10.4 [facility] Comment on above: Performed By: #### B MPX, PT, CBC #### [facility] [address] [place] [address] Jewelry Salesperson: Mary Astorga MD Chloride [Moles/Vol] 105 mmol/L Normal 98-107 [facility] Comment on above: Performed By: #### B MPX, PT, CBC #### [facility] [address] [place] [address] Jewelry Salesperson: Mary Astorga MD CO2 [Moles/Vol] 23 mmol/L Normal 20-31 [facility] Comment on above: Performed By: #### B MPX, PT, CBC #### [facility] [address] [place] [address] Jewelry Salesperson: Mary Astorga MD Creatinine [Mass/Vol] 1.0 mg/dL Normal 0.70-1.20 [facility] Comment on above: Performed By: #### B MPX, PT, CBC #### [facility] [address] [place] [address] Jewelry Salesperson: Mary Astorga MD GFR/1.73 sq M.predicted among non-blacks MDRD (S/P/Bld) [Vol rate/Area] 73 mL/min/{1.73_m2} Normal >60 [facility] Comment on above: Result Comment: These [...] By: #### B MPX, PT, CBC #### [facility] [address] [place] [address] Jewelry Salesperson: Mary Astorga MD Glucose [Mass/Vol] 96 mg/dL Normal 74-99 [facility] Comment on above: Performed By: #### B MPX, PT, CBC #### [facility] [address] [place] [address] Jewelry Salesperson: Mary Astorga MD Potassium [Moles/Vol] 4.2 mmol/L Normal 3.7-5.3 [facility] Comment on above: Performed By: #### B MPX, PT, CBC #### [facility] [address] [place] [address] Jewelry Salesperson: Mary Astorga MD Sodium [Moles/Vol] 139 mmol/L Normal 136-145 [facility] Comment on above: Performed By: #### B MPX, PT, CBC #### [facility] [address] [place] [address] Jewelry Salesperson: Mary Astorga MD Urea nitrogen [Mass/Vol] 16 mg/dL Normal 8-23 [facility] Comment on above: Performed By: #### B MPX, PT, CBC #### [facility] [address] [place] [address] Jewelry Salesperson: Mary Astorga MD CBCon 05-13-2024 Erythrocyte distribution width (RBC) [Ratio] 14.7 % High 11.8-14.4 [facility] Comment on above: Performed By: #### L IPR #### [address] [address] Jewelry Salesperson: Kale Orona MD Hematocrit (Bld) [Volume fraction] 40.3 % Low 40.7-50.3 [facility] Comment on above: Performed By: #### L IPR #### [address] [place] [address] Jewelry Salesperson: Kale Orona MD Hemoglobin (Bld) [Mass/Vol] 13.9 g/dL Normal 13.0-17.0 [facility] Comment on above: Performed By: #### L IPR #### [facility] [address] [place] [address] Jewelry Salesperson: Kale Orona MD MCH (RBC) [Entitic mass] 31.0 pg Normal 25.2-33.5 [facility] Comment on above: Performed By: #### L IPR #### [address] [address] Jewelry Salesperson: Kale Orona MD MCHC (RBC) [Mass/Vol] 34.5 g/dL Normal 28.4-34.8 [facility] Comment on above: Performed By: #### L IPR #### [address] [address] Jewelry Salesperson: Kale Orona MD MCV (RBC) [Entitic vol] 89.8 fL Normal 82.6-102.9 [facility] Comment on above: Performed By: #### L IPR #### [address] [address] Jewelry Salesperson: Kale Orona MD NRBC Automated 0.0 per 100 WBC Normal 0.0 [facility] Comment on above: Performed By: #### L IPR #### [address] [address] Jewelry Salesperson: Kale Orona MD Platelet mean volume (Bld) [Entitic vol] 9.8 fL Normal 8.1-13.5 [facility] Comment on above: Performed By: #### L IPR #### [address] [address] Jewelry Salesperson: Kale Orona MD Platelets (Bld) [#/Vol] 154 10*3/uL Normal 138-453 [facility] Comment on above: Performed By: #### L IPR #### [address] [address] Jewelry Salesperson: Kale Orona MD RBC (Bld) [#/Vol] 4.49 10*6/uL Normal 4.21-5.77 [facility] Comment on above: Performed By: #### L IPR #### [address] [address] Jewelry Salesperson: Kale Orona MD WBC (Bld) [#/Vol] 4.0 10*3/uL Normal 3.5-11.3 [facility] Comment on above: Performed By: #### L IPR #### [facility] [address] [place], [place] [id number] Jewelry Salesperson: Kale Orona MD PTon 05-13-2024 INR Coag (PPP) [Relative time] 1.2 {INR} Normal [facility] Comment on above: Result Comment: Therapeutic Range: Moderate Anticoagulant Intensity: INR = 2.0-3.0 High Anticoagulant Intensity: INR = 2.5-3.5 Performed By: #### B MPX, PT, CBC #### [address] [place] [address] Jewelry Salesperson: Mary Astorga MD PT Coag (PPP) [Time] 14.8 s High 11.7-14.1 [facility] Comment on above: Performed By: #### B MPX, PT, CBC #### [facility] [address] [place] [address] [place] [address] Jewelry Salesperson: Mary Astorga MD Troponinon 05-13-2024 Troponin, High Sens 26 ng/L High 0-22 [facility] Comment on above: Result Comment: High Sensitivity Troponin values cannot be compared with other Troponin methodologies. Performed By: #### T ROPI #### [facility] [address] [place] [address] [address] [id number] Jewelry Salesperson: Mary Astorga MD Brain Natri. Peptideon 05-12 Natriuretic peptide B (Bld) [Mass/Vol] 729 pg/mL High 0-450 [facility] Comment on above: Performed By: #### L IPR #### [facility] [address] [place], [place] [id number] Jewelry Salesperson: Kale Orona MD CBC with Diffon 05-12-2024 Abs. Basophil 0.03 k/uL Normal 0.00-0.20 [facility] Comment on above: Performed By: #### L IPR #### [address] [address] Jewelry Salesperson: Kale Orona MD Abs.Imm.Granulocyte <0.03 Normal 0.00-0.30 [facility] Comment on above: Performed By: #### L IPR #### [address] [address] Jewelry Salesperson: Kale Orona MD Abs.Neutrophil (Seg) 2.22 k/uL Normal 1.50-8.10 [facility] Comment on above: Performed By: #### L IPR #### [address] [address] Jewelry Salesperson: Kale Orona MD Basophils/100 WBC (Bld) 1 % Normal 0-2 [facility] Comment on above: Performed By: #### L IPR #### [address] [address] Jewelry Salesperson: Kale Orona MD Eosinophils (Bld) [#/Vol] 0.11 10*3/uL Normal 0.00-0.44 [facility] Comment on above: Performed By: #### L IPR #### [address] [address] Jewelry Salesperson: Kale Orona MD Eosinophils/100 WBC (Bld) 3 % Normal 1-4 [facility] Comment on above: Performed By: #### L IPR #### [address] [address] Jewelry Salesperson: Kale Orona MD Erythrocyte distribution width (RBC) [Ratio] 14.7 % High 11.8-14.4 [facility] Comment on above: Performed By: #### L IPR #### [address] [address] Jewelry Salesperson: Kale Orona MD Hematocrit (Bld) [Volume fraction] 38.8 % Low 40.7-50.3 [facility] Comment on above: Performed By: #### L IPR #### [address] [address] Jewelry Salesperson: Kale Orona MD Hemoglobin (Bld) [Mass/Vol] 13.3 g/dL Normal 13.0-17.0 [facility] Comment on above: Performed By: #### L IPR #### [address] [address] Jewelry Salesperson: Kale Orona MD Immature granulocytes/100 WBC (Bld) 1 % High 0 [facility] Comment on above: Performed By: #### L IPR #### [address] [address] Jewelry Salesperson: Kale Orona MD Lymphocytes (Bld) [#/Vol] 0.61 10*3/uL Low 1.10-3.70 [facility] Comment on above: Performed By: #### L IPR #### [address] [address] Jewelry Salesperson: Kale Orona MD Lymphocytes/100 WBC (Bld) 17 % Low 24-43 [facility] Comment on above: Performed By: #### L IPR #### [address] [address] Jewelry Salesperson: Kale Orona MD MCH (RBC) [Entitic mass] 31.0 pg Normal 25.2-33.5 [facility] Comment on above: Performed By: #### L IPR #### [address] [address] Jewelry Salesperson: Kale Orona MD MCHC (RBC) [Mass/Vol] 34.3 g/dL Normal 28.4-34.8 [facility] Comment on above: Performed By: #### L IPR #### [address] [address] Jewelry Salesperson: Kale Orona MD MCV (RBC) [Entitic vol] 90.4 fL Normal 82.6-102.9 [facility] Comment on above: Performed By: #### L IPR #### [address] [address] Jewelry Salesperson: Kale Orona MD Monocytes (Bld) [#/Vol] 0.59 10*3/uL Normal 0.10-1.20 [facility] Comment on above: Performed By: #### L IPR #### [address] [address] Jewelry Salesperson: Kale Orona MD Monocytes/100 WBC (Bld) 17 % High 3-12 [facility] Comment on above: Performed By: #### L IPR #### [address] [address] Jewelry Salesperson: Kale Orona MD Neutrophil (Seg) 61 % Normal 36-65 [facility] Comment on above: Performed By: #### L IPR #### [address] [address] Jewelry Salesperson: Kale Orona MD NRBC Automated 0.0 per 100 WBC Normal 0.0 [facility] Comment on above: Performed By: #### L IPR #### [address] [address] Jewelry Salesperson: Kale Orona MD Platelet mean volume (Bld) [Entitic vol] 9.3 fL Normal 8.1-13.5 [facility] Comment on above: Performed By: #### L IPR #### [address] [address] Jewelry Salesperson: Kale Orona MD Platelets (Bld) [#/Vol] 153 10*3/uL Normal 138-453 [facility] Comment on above: Performed By: #### L IPR #### [address] [address] Jewelry Salesperson: Kale Orona MD RBC (Bld) [#/Vol] 4.29 10*6/uL Normal 4.21-5.77 [facility] Comment on above: Performed By: #### L IPR #### [employer] [address] [place] [address] Jewelry Salesperson: Kale Orona MD WBC (Bld) [#/Vol] 3.6 10*3/uL Normal 3.5-11.3 [facility] Comment on above: Performed By: #### L IPR #### [employer] [address] [place] [address] Jewelry Salesperson: Kale Orona MD CTA CHEST ABDOMEN PELVIS [...] normal. Pelvis: Brachytherapy seeds throughout the prostate. Peritoneum/Retroperiton eum: No free air, free fluid, organized fluid [...] Randall Almaraz MD 05/12/24 Final result Normal [facility] Comp Metabolic Profon 2023 Albumin [Mass/Vol] 3.8 g/dL Normal 3.5-5.2 [facility] Comment on above: Performed By: #### L IPR #### [address] [address] Jewelry Salesperson: Kale Orona MD Albumin/Glob Ratio 1.5 Normal 1.0-2.5 [facility] Comment on above: Performed By: #### L IPR #### [facility] [place], [place] [phone] Jewelry Salesperson: Kale Orona MD Alkaline Phos 92 U/L Normal 40-129 [facility] Comment on above: Performed By: #### L IPR #### [facility] [employer] [address] [place] [id number] Jewelry Salesperson: Kale Orona MD ALT [Catalytic activity/Vol] 15 U/L Normal 10-50 [facility] Comment on above: Performed By: #### L IPR #### [address] [address] Jewelry Salesperson: Kale Orona MD Anion gap [Moles/Vol] 11 mmol/L Normal 9-16 [facility] Comment on above: Performed By: #### L IPR #### [address] [address] Jewelry Salesperson: Kale Orona MD AST [Catalytic activity/Vol] 24 U/L Normal 10-50 [facility] Comment on above: Performed By: #### L IPR #### [address] [address] Jewelry Salesperson: Kale Orona MD Bilirubin [Mass/Vol] 0.6 mg/dL Normal 0.00-1.20 [facility] Comment on above: Performed By: #### L IPR #### [address] [address] Jewelry Salesperson: Kale Orona MD BUN/CRE Ratio 17 Normal 9-20 [facility] Comment on above: Performed By: #### L IPR #### [address] [address] Jewelry Salesperson: Kale Orona MD Calcium [Mass/Vol] 9.2 mg/dL Normal 8.6-10.4 [facility] Comment on above: Performed By: #### L IPR #### [address] [address] Jewelry Salesperson: Kale Orona MD Chloride [Moles/Vol] 106 mmol/L Normal 98-107 [facility] Comment on above: Performed By: #### L IPR #### [address] [address] Jewelry Salesperson: Kale Orona MD CO2 [Moles/Vol] 22 mmol/L Normal 20-31 [facility] Comment on above: Performed By: #### L IPR #### [address] [address] Jewelry Salesperson: Kale Orona MD Creatinine [Mass/Vol] 1.1 mg/dL Normal 0.70-1.20 [facility] Comment on above: Performed By: #### L IPR #### [address] [address] Jewelry Salesperson: Kale Orona MD GFR/1.73 sq M.predicted among non-blacks MDRD (S/P/Bld) [Vol rate/Area] 69 mL/min/{1.73_m2} Normal >60 [facility] Comment on above: Result Comment: These [...] secretion. Performed By: #### L IPR #### [facility] [employer] [address] [place] [address] Jewelry Salesperson: Kale Orona MD Glucose [Mass/Vol] 127 mg/dL High 74-99 [facility] Comment on above: Performed By: #### L IPR #### [facility] [employer] [address] [place] [address] Jewelry Salesperson: Kale Orona MD Potassium [Moles/Vol] 4.6 mmol/L Normal 3.7-5.3 [facility] Comment on above: Performed By: #### L IPR #### [facility] [address] [place] [address] Jewelry Salesperson: Kale Orona MD Protein [Mass/Vol] 6.3 g/dL Low 6.6-8.7 [facility] Comment on above: Performed By: #### L IPR #### [facility] [employer] [address] [place] [address] Jewelry Salesperson: Kale Orona MD Sodium [Moles/Vol] 139 mmol/L Normal 136-145 [facility] Comment on above: Performed By: #### L IPR #### [facility] [address] [place] [address] Jewelry Salesperson: Kale Orona MD Urea nitrogen [Mass/Vol] 19 mg/dL Normal 8-23 [facility] Comment on above: Performed By: #### L IPR #### [facility] [address] [place] [address] Jewelry Salesperson: aKle Orona MD Troponinon 05-12-2024 Troponin, High Sens 25 ng/L High 0-22 [facility] Comment on above: Result Comment: High Sensitivity Troponin values cannot be compared with other Troponin methodologies. Performed By: #### L IPR #### [facility] [address] [place] [address] Jewelry Salesperson: Kale Orona MD Troponin, High Sens 26 ng/L High 0-22 [facility] Comment on above: Result Comment: High Sensitivity Troponin values cannot be compared with other Troponin methodologies. Performed By: #### L IPR #### [address] [address] Jewelry Salesperson: Kale Orona MD XR CHEST PORTABLEon 05-12-20 [...] Elyssa Pino MD 05/12/24 Final result Normal [facility] Office Visiton 04-24-2024 Follow-up visit [id number] Tristin Powell 1940 [facility] Provider Department Center 04/24/2024 RUSSEL ADAIR [facility] Family History Problem Relation Age of Onset Coronary artery disease Other Hyperlipidemia Other Hypertension Other Family Status - Relation Status Age at Other Level of Service:[address] [place] OFFICE/OUTPATIENT ESTABLISHED MOD MDM 30 MIN Normal [facility] 12-29-2023 Screens [id number] IFF Normal [facility] Patient Educationon 12-26-19 Patient Education Oncology [...] likelihood that the cancer will spread. ? [place] 6 or lower: This indicates that the [...] external be (more content not included)... Normal [facility] Provider Letteron 12-26-2023 Provider Letter (Inserted Image. Thu ble to display) FLASH LOVELACE, [address] [place] [address] Re: TRISTIN POWELL Date of : [address] ALBANIA DIAZ, TRISTIN ALEMAN was evaluated at [facility] Urology 12/26/2023 13:00:00 As this patient has been [...] Thanks! Provider Signature: Brenna Mosquera PA-C Physician Donor Services Specialist [facility] [address] [place] [address] Normal [facility] Urology Office/Clinic Noteon 12-26-2023 Urology Office/Clinic [...] E&M of Est. Patient Low 20-29 Min 04237 Urnls Dip Stick Auto w/o Microscopy POC 47893 2. BPH with urinary obstruction (N40.1: Benign prostatic hyperplasia with lower urinary tract symptoms) IPSS 7 (5) QOL 1 Pt is currently taking no bladder/prostate medication and is highly satisfied with overall symptom control. No indication for treatment at this time. Continue to monitor. Ordered: Complex E&M Add on G2211 E&M of Est. Patient Low 20-29 Min 98368 3. Erectile dysfunction (N52.9: Male erectile dysfunction, unspecified) last ov: pt requesting sildenafil 100mg. was on it previously through another provider and worked well. 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 advised him to contact his stump shooter and if they clear him then call us and I will prescribe it. today: pt never called after last ov. no concerns reported today. does not wish to pursue Sildenafil at this time. Ordered: Complex E&M Add on G2211 E&M of Est. Patient Low 20-29 Min 325[address] Other obstructive and reflux uropathy (N13.8: Other obstructive and reflux uropathy) Offered continued scheduled follow up with our clinic vs following up PRN. Pt prefers the latter. We will ensure PCP continues to order annual PSA. Letter sent. Follow-up With When Contact Information JAY CARRANZA, BRENNA Bazan, URL Only if needed [address] [place] [employer] [id number] [facility] (1) Additional Instructions: Patient Education Prostate Cancer [...] vaccine, i (more content not included)... Normal [facility] Comment on above: Result Comment: Elec tronically Signed By: BRENNA MOSQUERA PA-C\Date and Time Signed: 12/26/23 13:33 EDT Lab Reportson 12-22-2023 Lab Reports [id number]#1.00T IFF Normal [facility] Alanine aminotransferase [En zymatic activity/volume] in Serum or PlasmaOrdered By: Eliezer Juarez on 10-17-2023 ALT [Catalytic activity/Vol] 15 U/L 7-52 [facility] Albumin [Mass/volume] in Ser um or Plasma by Bromocresol green (BCG) dye binding methoOrdered By: Eliezer Juarez on 10-17-2023 Albumin BCG dye [Mass/Vol] 4.0 g/dL 3.5-5.7 [facility] Alkaline phosphatase [Enzyma tic activity/volume] in Serum or PlasmaOrdered By: Eliezer Juarez on 10-17-2023 ALP [Catalytic activity/Vol] 72 U/L 34-104 [facility] Aspartate aminotransferase [ Enzymatic activity/volume] in Serum or PlasmaOrdered By: Eliezer Juarez on 10-17-2023 AST [Catalytic activity/Vol] 21 U/L 13-39 [facility] Basophils Auto (Bld) [#/Vol] Ordered By: Eliezer Juarez on 10-17-2023 Basophils (Bld) [#/Vol] 0.0 10*3/uL 0.0-0.2 [facility] Basophils/100 WBC Auto (Bld) Ordered By: Eliezer Juarez on 10-17-2023 Basophils/100 WBC (Bld) 0.7 % . [facility] Bilirubin.total [Mass/volume ] in Serum or PlasmaOrdered By: Eliezer Juarez on 10-17-2023 Bilirubin [Mass/Vol] 0.7 mg/dL 0.3-1.0 [facility] Calcium [Mass/volume] in Ser um or PlasmaOrdered By: Eliezer Juarez on 10-17-2023 Calcium [Mass/Vol] 9.4 mg/dL 8.6-10.3 [facility] Carbon dioxide, total [Moles /volume] in Serum or PlasmaOrdered By: Eliezer Juarez on 10-17-2023 CO2 [Moles/Vol] 24.6 mmol/L 21.0-31.0 [facility] Chloride [Moles/volume] in S roger or PlasmaOrdered By: Eliezer Juarez on 10-17-2023 Chloride [Moles/Vol] 108 mmol/L 98-107 [facility] Cholesterol [Mass/volume] in Serum or PlasmaOrdered By: Eliezer Juarez on 10-17-2023 Cholesterol [Mass/Vol] 142 mg/dL 140-200 [facility] Comment on above: Chol less than 200 m g/dl low riskChol 201-239 mg/dl borderline riskChol 240 mg/dl and greater high risk Cholesterol in LDL Calc [Mas s/Vol]Ordered By: Eliezer Juarez on 10-17-2023 Cholesterol in LDL [Mass/Vol] 79 mg/dL 0-100 [facility] Comment on above: LDL ATP III CLASSIFI CATIONLDL less than 100 mg/dL OptimalLDL 100-129 mg/dL Near or above optimalLDL 130-159 mg/dL Borderline highLDL 160-189 mg/dL HighLDL greater than 189 mg/dL Very high Cholesterol in VLDL Calc [Ma ss/Vol]Ordered By: Eliezer Juarez on 10-17-2023 Cholesterol in VLDL [Mass/Vol] 21 mg/dL [facility] Creatinine [Mass/volume] in Serum or PlasmaOrdered By: Eliezer Juarez on 10-17-2023 Creatinine [Mass/Vol] 1.01 mg/dL 0.70-1.30 [facility] Eosinophils Auto (Bld) [#/Vo l]Ordered By: Eliezer Juarez on 10-17-2023 Eosinophils (Bld) [#/Vol] 0.1 10*3/uL 0.0-0.45 [facility] Eosinophils/100 WBC Auto (Bl d)Ordered By: Eliezer Juarez on 10-17-2023 Eosinophils/100 WBC (Bld) 3.4 % . [facility] Erythrocyte distribution wid th Auto (RBC) [Ratio]Ordered By: Eliezer Juarez on 10-17-2023 Erythrocyte distribution width (RBC) [Ratio] 14.4 % 12.0-14.8 [facility] Globulin Calc (S) [Mass/Vol] Ordered By: Eliezer Juarez on 10-17-2023 Globulin (S) [Mass/Vol] 2.6 g/dL [facility] Glucose [Mass/volume] in Ser um or PlasmaOrdered By: Eliezer Juarez on 10-17-2023 Glucose [Mass/Vol] 82 mg/dL 70-100 [facility] Comment on above: ADA recommended refe rence rangeRandom Glucose Reference Range is dependent on time and content of last meal. Glucose of more than 200 mg/dL in a nonstressed, ambulatory subject supports the diagnosis of Diabetes Mellitus. Hematocrit Auto (Bld) [Volum e fraction]Ordered By: Eliezer Juarez on 10-17-2023 Hematocrit (Bld) [Volume fraction] 39.3 % 38.8-50.0 [facility] Hemoglobin [Mass/volume] in BloodOrdered By: Eliezer Juarez on 10-17-2023 Hemoglobin (Bld) [Mass/Vol] 13.5 g/dL 13.0-17.0 [facility] Leukocytes [#/volume] correc maximilian for nucleated erythrocytes in Blood by Automated counOrdered By: Eliezer Juarez on 10-17-2023 WBC corrected for nucl RBC Auto (Bld) [#/Vol] 3.5 10*3/uL 4.1-10.5 [facility] Lymphocytes Auto (Bld) [#/Vo l]Ordered By: Eliezer Juarez on 10-17-2023 Lymphocytes (Bld) [#/Vol] 0.8 10*3/uL 1.00-4.8 [facility] Lymphocytes/100 WBC Auto (Bl d)Ordered By: Eliezer Juarez on 10-17-2023 Lymphocytes/100 WBC (Bld) 22.4 % . [facility] MCH Auto (RBC) [Entitic mass ]Ordered By: Eliezer Juarez on 10-17-2023 MCH (RBC) [Entitic mass] 30.9 pg 27.5-35.2 [facility] MCHC Auto (RBC) [Mass/Vol]Or dered By: Eliezer Juarez on 10-17-2023 MCHC (RBC) [Mass/Vol] 34.3 g/dL 32.5-35.6 [facility] MCV Auto (RBC) [Entitic vol] Ordered By: Eliezer Juarez on 10-17-2023 MCV (RBC) [Entitic vol] 90.1 fL 83.5-101 [facility] Monocytes Auto (Bld) [#/Vol] Ordered By: Eliezer Juarez on 10-17-2023 Monocytes (Bld) [#/Vol] 0.6 10*3/uL 0.0-0.8 [facility] Monocytes/100 WBC Auto (Bld) Ordered By: Eliezer Juarez on 10-17-2023 Monocytes/100 WBC (Bld) 15.8 % . [facility] Neutrophils Auto (Bld) [#/Vo l]Ordered By: Eliezer Juarez on 10-17-2023 Neutrophils (Bld) [#/Vol] 2.0 10*3/uL 1.8-7.7 [facility] Neutrophils/100 WBC Auto (Bl d)Ordered By: Eliezer Juarez on 10-17-2023 Neutrophils/100 WBC (Bld) 57.7 % . [facility] No Panel InformationOrdered By: Eliezer Juarez on 10-17-2023 Estimated GFR (CKD-EPI) > 60.0 mL/Min [facility] Creatinine Clearance (Chem N/A [facility] Nucleated erythrocytes [Pres ence] in Blood by Automated countOrdered By: Eliezer Juarez on 10-17-2023 Nucleated RBC Auto Ql (Bld) 0.4 /100{WBC} 0-0.5 [facility] Platelet mean volume Auto (B ld) [Entitic vol]Ordered By: Eliezer Juarez on 10-17-2023 Platelet mean volume (Bld) [Entitic vol] 7.8 fL 6.6-10.1 [facility] Platelets Auto (Bld) [#/Vol] Ordered By: Eliezer Juarez on 10-17-2023 Platelets (Bld) [#/Vol] 170 10*3/uL 150-450 [facility] Potassium [Moles/volume] in Serum or PlasmaOrdered By: Eliezer Juarez on 10-17-2023 Potassium [Moles/Vol] 4.7 mmol/L 3.5-5.1 [facility] Protein [Mass/volume] in Ser um or PlasmaOrdered By: Eliezer Juarez on 10-17-2023 Protein [Mass/Vol] 6.6 g/dL 6.4-8.9 [facility] RBC Auto (Bld) [#/Vol]Ordere d By: Eliezer Juarez on 10-17-2023 RBC (Bld) [#/Vol] 4.36 10*6/uL 3.90-5.60 [facility] Serum or plasma albumin/glob ulin mass ratioOrdered By: Eliezer Juarez on 10-17-2023 Albumin/Globulin [Mass ratio] 1.5 {ratio} [facility] Serum or plasma anion gap de terminationOrdered By: Eliezer Juarez on 10-17-2023 Anion gap [Moles/Vol] 11.1 mmol/L 6.0-15.0 [facility] Serum or plasma high density lipoprotein (HDL) cholesterol measurementOrdered By: Eliezer Juarez on 10-17-2023 Cholesterol in HDL [Mass/Vol] 42 mg/dL 23-92 [facility] Comment on above: HDL CHOL ATP-III CLA SSIFICATION Cardiovascular RiskHDL > or equal to 60 mg/dL LOWHDL < 40 mg/dL HIGH Serum or plasma total choles terol/high density lipoprotein (HDL) cholesterol mass ratOrdered By: Eliezer Juarez on 10-17-2023 Cholesterol.total/Cho lesterol in HDL [Mass ratio] 3.4 {ratio} <5.0 [facility] Sodium [Moles/volume] in Ser um or PlasmaOrdered By: Eliezer Juarez on 10-17-2023 Sodium [Moles/Vol] 139 mmol/L 136-145 [facility] Triglyceride [Mass/volume] i n Serum or PlasmaOrdered By: Eliezer Juarez on 10-17-2023 Triglyceride [Mass/Vol] 105 mg/dL 0-149 [facility] Comment on above: TRIG ATP III CLASSIF ICATIONTRIG less than 150 mg/dL NormalTRIG 150-199 mg/dL Borderline highTRIG 200-500 mg/dL High TRIG greater than 500 mg/dL Very highStandard traceable to the Center for Disease Conrtrol and Prevention (CDC) test method. Urea nitrogen [Mass/volume] in Serum or PlasmaOrdered By: Eliezer Juarez on 10-17-2023 Urea nitrogen [Mass/Vol] 15 mg/dL 03-21 [facility] WBC Auto (Bld) [#/Vol]Ordere d By: Eliezer Juarez on 10-17-2023 WBC (Bld) [#/Vol] 3.5 10*3/uL 4.1-10.5 [facility] Creatinine [Mass/volume] in Serum or PlasmaOrdered By: Cristian Beaver on 10-12-2023 Creatinine [Mass/Vol] 1.11 mg/dL 0.70-1.30 [facility] No Panel InformationOrdered By: Cristian Beaver on 10-12-2023 Estimated GFR (CKD-EPI) > 60.0 mL/Min [facility] Creatinine Clearance (Chem 64.55 [facility] Urea nitrogen [Mass/volume] in Serum or PlasmaOrdered By: Cristian Beaver on 10-12-2023 Urea nitrogen [Mass/Vol] 18 mg/dL 03-21 [facility] PROF CHEM 8 (BAS METB)on Anion gap [Moles/Vol] 10.5 mmol/L Normal [facility] Comment on above: Performed By: #### B MP #### [facility] [address] [address] [address] Benedict Edmondson Calcium [Mass/Vol] 9.5 mg/dL Normal 8.5-10.1 [facility] Comment on above: Performed By: #### B MP #### [facility] [address] [place], [place] [address] Dr. Benedict Edmondson Chloride [Moles/Vol] 106 mmol/L Normal 98-107 [facility] Comment on above: Performed By: #### B MP #### [facility] [address] [address] [address] Benedict Edmondson CO2 [Moles/Vol] 28.8 mmol/L Normal 21.0-32.[address] [facility] Comment on above: Performed By: #### B MP #### [facility] [address] [address] [address] Benedict Edmondson Creatinine [Mass/Vol] 1.28 mg/dL Normal 0.70-1.30 [facility] Comment on above: Performed By: #### B MP #### [facility] [address] [address] [address] Benedict Edmondson EGFR-AF SCOTTISH >60 Normal >=[address] [facility] Comment on above: Performed By: #### B MP #### [facility] [address] [address] [address] Benedict Edmondson EGFR-NON AF SCOTTISH 54 mL/min/1.73m2 Critically low >=60 [facility] Comment on above: Performed By: #### B MP #### [facility] [address] [address] [address] Benedict Edmondson Glucose [Mass/Vol] 97 mg/dL Normal 74-106 [facility] Comment on above: Performed By: #### B MP #### [facility] [address] [address] [address] Benedict Edmondson Potassium [Moles/Vol] 4.3 mmol/L Normal 3.5-5.1 [facility] Comment on above: Performed By: #### B MP #### [facility] [address] [address] [address] Benedict Edmondson Sodium [Moles/Vol] 141 mmol/L Normal 136-145 [facility] Comment on above: Performed By: #### B MP #### [facility] [address] [address] [address] Benedict Edmondson Urea nitrogen [Mass/Vol] 17.0 mg/dL Normal 7.0-18.0 [facility] Comment on above: Performed By: #### B MP #### [facility] [address] [address] [address] Benedict Edmondson Urea nitrogen/Creatinine [Mass ratio] 13.3 mg/mg Normal [facility] Comment on above: Performed By: #### B MP #### [facility] [address] [address] [address] Benedict Edmondson PROF 14(COMP METB)on 023 Albumin [Mass/Vol] 3.1 g/dL Critically low 3.4-5.0 [facility] Comment on above: Performed By: #### C MP #### [facility] [address] [place] [address] Dr. Benedict Edmondson Albumin/Globulin [Mass ratio] 0.8 {ratio} Normal [facility] Comment on above: Performed By: #### C MP #### [facility] [address] [place] [address] Dr. Benedict Edmondson ALP [Catalytic activity/Vol] 83 U/L Normal 46-116 [facility] Comment on above: Performed By: #### C MP #### [facility] [address] [place] [address] Dr. Benedict Edmondson ALT [Catalytic activity/Vol] 29 U/L Normal 16-63 [facility] Comment on above: Performed By: #### C MP #### [facility] [address] [place] [address] Dr. Benedict Edmondson Anion gap [Moles/Vol] 12.9 mmol/L Normal [facility] Comment on above: Performed By: #### C MP #### [facility] [address] [place] [address] Dr. Benedict Edmondson AST [Catalytic activity/Vol] 31 U/L Normal 15-37 [facility] Comment on above: Performed By: #### C MP #### [facility] [address] [place] [address] Dr. Benedict Edmondson Bilirubin [Mass/Vol] 1.0 mg/dL Normal 0.2-1.0 [facility] Comment on above: Performed By: #### C MP #### [facility] [address] [address] [address] Benedict Edmondson Calcium [Mass/Vol] 9.2 mg/dL Normal 8.5-10.1 [facility] Comment on above: Performed By: #### C MP #### [facility] [address] [address] [address] Benedict Edmondson Chloride [Moles/Vol] 102 mmol/L Normal 98-107 [facility] Comment on above: Performed By: #### C MP #### [facility] [address] [address] [address] Benedict Edmondson CO2 [Moles/Vol] 27.0 mmol/L Normal 21.0-32.[address] [facility] Comment on above: Performed By: #### C MP #### [facility] [address] [address] [address] Benedict Edmondson Creatinine [Mass/Vol] 2.03 mg/dL Critically high 0.70-1.30 [facility] Comment on above: Performed By: #### C MP #### [facility] [address] [address] [address] Benedict Edmondson EGFR-AF SCOTTISH 38 mL/min/1.73m2 Critically low >=60 [facility] Comment on above: Performed By: #### C MP #### [facility] [address] [address] [address] Benedict Edmondson EGFR-NON AF SCOTTISH 32 mL/min/1.73m2 Critically low >=60 [facility] Comment on above: Performed By: #### C MP #### [facility] [address] [address] [address] Benedict Edmondson Globulin (S) [Mass/Vol] 3.8 g/dL Normal [facility] Comment on above: Performed By: #### C MP #### [facility] [address] [address] [address] Benedict Edmondson Glucose [Mass/Vol] 94 mg/dL Normal 74-106 [facility] Comment on above: Performed By: #### C MP #### [facility] [address] [address] [address] Benedict Edmondson Potassium [Moles/Vol] 4.9 mmol/L Normal 3.5-5.1 [facility] Comment on above: Performed By: #### C MP #### [facility] [address] [address] [address] Benedict Edmondson Protein [Mass/Vol] 6.9 g/dL Normal 6.4-8.2 [facility] Comment on above: Performed By: #### C MP #### [facility] [address] [address] [address] Benedict Edmondson Sodium [Moles/Vol] 137 mmol/L Normal 136-145 [facility] Comment on above: Performed By: #### C MP #### [facility] [address] [address] [address] Benedict Edmondson Urea nitrogen [Mass/Vol] 34.0 mg/dL Critically high 7.0-18.0 [facility] Comment on above: Performed By: #### C MP #### [facility] [address] [address] [address] Benedict Edmondson Urea nitrogen/Creatinine [Mass ratio] 16.7 mg/mg Normal [facility] Comment on above: Performed By: #### C MP #### [facility] [address] [address] [address] Benedict Edmondson Bacteria identified Cx Nom ( Bld)on 11-08-2022 Interpretation and review of laboratory results Normal [facility] CBC Auto Differentialon 10-26 Basophils (Bld) [#/Vol] 0.02 10*3/uL [facility] Basophils/100 WBC (Bld) 0.4 % [facility] Eosinophils (Bld) [#/Vol] 0.21 10*3/uL [facility] Eosinophils/100 WBC (Bld) 3.9 % [facility] Erythrocyte distribution width (RBC) [Entitic vol] 13.4 % 11.6 - 14.8 % [facility] Hematocrit (Bld) [Volume fraction] 33.6 % Low 41.0 - 53.0 % [facility] Hemoglobin (Bld) [Mass/Vol] 11.5 g/dL Low 13.5 - 17.5 g/dL [facility] Immature granulocytes (Bld) [#/Vol] 0.02 10*3/uL [facility] Immature granulocytes/100 WBC (Bld) 0.40 % [facility] Comment on above: The IG parameter is the percentage of metamyelocytes, myelocytes and promyelocytes. An immature granulocyte count (IG) of 1% or more suggests the possibility of infection, an IG count of 3% is very likely related to an infection. Interpretation and review of laboratory results Abnormal [facility] Lymphocytes (Bld) [#/Vol] 0.62 10*3/uL Low [facility] Lymphocytes/100 WBC (Bld) 11.4 % [facility] MCH (RBC) [Entitic mass] 30.7 pg 26.0 - 34.0 pg [facility] MCHC (RBC) [Mass/Vol] 34.2 g/dL 31.0 - 37.0 g/dL [facility] MCV (RBC) [Entitic vol] 89.8 fL 80.0 - 100.0 fL [facility] Monocytes (Bld) [#/Vol] 0.78 10*3/uL [facility] Monocytes/100 WBC (Bld) 14.4 % [facility] Neutrophils (Bld) [#/Vol] 3.78 10*3/uL [facility] Neutrophils/100 WBC (Bld) 69.5 % [facility] Nucleated RBC (Bld) [#/Vol] 0.00 10*3/uL [facility] Nucleated RBC/100 WBC (Bld) [Ratio] 0.0 % [facility] Platelet mean volume (Bld) [Entitic vol] 9.7 fL 9.4 - 12.4 fL [facility] Platelets (Bld) [#/Vol] 170 10*3/uL [facility] RBC (Bld) [#/Vol] 3.74 10*6/uL Low [facility] WBC (Bld) [#/Vol] 5.43 10*3/uL [facility] - Microbiology an d Antimicrobial susceptibilityon 11-08-2022 Bacteria identified Cx Nom (Bld) No Growth After 5 Days [facility] h Magnesium Levelon 11-08-2022 Magnesium [Mass/Vol] 2.3 mg/dL 1.6 - 2 .4 mg/dL [facility] Magnesium [Mass/Vol]on 11-08 Interpretation and review of laboratory results Normal [facility] Renal function 2000 panelon 11-08-2022 Albumin [Mass/Vol] 3.3 g/dL 3.2 - 5.2 g/dL [facility] Anion gap [Moles/Vol] 13 mmol/L 10 - 2 0 mmol/L [facility] Calcium [Mass/Vol] 9.3 mg/dL 8.4 - 10. 2 mg/dL [facility] Chloride [Moles/Vol] 104 mmol/L 98 - 10 8 mmol/L [facility] Creatinine [Mass/Vol] 1.16 mg/dL 0.80 - 1.30 mg/dL [facility] GFR/1.73 sq M.predicted CKD-EPI (S/P/Bld) [Vol rate/Area] 62 - PINF [facility] Comment on above: Estimated GFR was ca lculated using the 2020 CKD-EPI creatinine equation. Glucose [Mass/Vol] 114 mg/dL High 65 - 99 mg/dL [facility] HCO3 [Moles/Vol] 24 mmol/L 21 - 32 mmol/L [facility] Interpretation and review of laboratory results Abnormal [facility] Phosphate [Mass/Vol] 2.7 mg/dL 2.3 - 3 .7 mg/dL [facility] Potassium [Moles/Vol] 4.1 mmol/L 3.5 - 5.1 mmol/L [facility] Sodium [Moles/Vol] 137 mmol/L 135 - 145 mmol/L [facility] Urea nitrogen [Mass/Vol] 24 mg/dL 8 - 25 mg/dL [facility] Urea nitrogen/Creatinine [Mass ratio] 20.7 mg/mg High 10.0 - 20.0 [facility] Laborator y Services has implemented the eGFR calculation approach that does not have a coefficient for race that conforms to the NKF-ASN Task Force Recommendations. [facility] XR Chest 1 Viewon 11-08-2022 [...] pneumothorax or acute osseous change otherwise suspected. [employer] Workstation ID: [id number] GE RIS EXAMINATION: XR [...] A total of two images were obtained. [facility] RIS Romulo Case M D - 11/08/2022 [...] pneumothorax or acute osseous change otherwise suspected. [employer] Workstation ID: [id number] [facility] Radiology Study observation (narrative) [facility] XR Chest 1 ViewOrdered By: Larisa Case on 11-08-2022 [facility] Work Phone: CBC Auto Differentialon 10-26 Basophils (Bld) [#/Vol] 0.02 10*3/uL [facility] Basophils/100 WBC (Bld) 0.3 % [facility] Eosinophils (Bld) [#/Vol] 0.18 10*3/uL [facility] Eosinophils/100 WBC (Bld) 3.0 % [facility] Erythrocyte distribution width (RBC) [Entitic vol] 13.7 % 11.6 - 14.8 % [facility] Hematocrit (Bld) [Volume fraction] 34.1 % Low 41.0 - 53.0 % [facility] Hemoglobin (Bld) [Mass/Vol] 11.3 g/dL Low 13.5 - 17.5 g/dL [facility] Immature granulocytes (Bld) [#/Vol] 0.05 10*3/uL [facility] Immature granulocytes/100 WBC (Bld) 0.80 % [facility] Comment on above: The IG parameter is the percentage of metamyelocytes, myelocytes and promyelocytes. An immature granulocyte count (IG) of 1% or more suggests the possibility of infection, an IG count of 3% is very likely related to an infection. Interpretation and review of laboratory results Abnormal [facility] Lymphocytes (Bld) [#/Vol] 0.68 10*3/uL Low [facility] Lymphocytes/100 WBC (Bld) 11.4 % [facility] MCH (RBC) [Entitic mass] 30.1 pg 26.0 - 34.0 pg [facility] MCHC (RBC) [Mass/Vol] 33.1 g/dL 31.0 - 37.0 g/dL [facility] MCV (RBC) [Entitic vol] 90.9 fL 80.0 - 100.0 fL [facility] Monocytes (Bld) [#/Vol] 0.74 10*3/uL [facility] Monocytes/100 WBC (Bld) 12.4 % [facility] Neutrophils (Bld) [#/Vol] 4.31 10*3/uL [facility] Neutrophils/100 WBC (Bld) 72.1 % [facility] Nucleated RBC (Bld) [#/Vol] 0.00 10*3/uL [facility] Nucleated RBC/100 WBC (Bld) [Ratio] 0.0 % [facility] Platelet mean volume (Bld) [Entitic vol] 9.8 fL 9.4 - 12.4 fL [facility] Platelets (Bld) [#/Vol] 157 10*3/uL [facility] RBC (Bld) [#/Vol] 3.75 10*6/uL Low [facility] WBC (Bld) [#/Vol] 5.98 10*3/uL [facility] 12 Leadon 11-07-2022 Atrial Rate 83 BPM [facility] P-R Interval 192 ms [facility] Q-T Interval 398 ms [facility] QRS Duration 98 ms [facility] QTC Calculation (Bezet) 467 ms [facility] R [place] 30 degrees [facility] T [place] 20 degrees [facility] Ventricular Rate 83 BPM [facility] Sinus rhythm with occasional Premature ventricular complexes and Premature atrial complexes Otherwise normal ECG Confirmed by YAW DIAZ, [facility] ([id number]) on 11/07/2022 11:37:24 AM MUSE [facility] Magnesium Levelon 11-07-2022 Magnesium [Mass/Vol] 2.1 mg/dL 1.6 - 2 .4 mg/dL [facility] Magnesium [Mass/Vol]on 11-07 Interpretation and review of laboratory results Normal [facility] Renal function 2000 panelon 11-07-2022 Albumin [Mass/Vol] 3.1 g/dL Low 3.2 - 5.2 g/dL [facility] Anion gap [Moles/Vol] 16 mmol/L 10 - 2 0 mmol/L [facility] Calcium [Mass/Vol] 8.8 mg/dL 8.4 - 10. 2 mg/dL [facility] Chloride [Moles/Vol] 101 mmol/L 98 - 10 8 mmol/L [facility] Creatinine [Mass/Vol] 1.34 mg/dL High 0.80 - 1.30 mg/dL [facility] GFR/1.73 sq M.predicted CKD-EPI (S/P/Bld) [Vol rate/Area] 53 Low - PINF [facility] Comment on above: Estimated GFR was ca lculated using the 2020 CKD-EPI creatinine equation. Glucose [Mass/Vol] 102 mg/dL High 65 - 99 mg/dL [facility] HCO3 [Moles/Vol] 23 mmol/L 21 - 32 mmol/L [facility] Interpretation and review of laboratory results Abnormal [facility] Phosphate [Mass/Vol] 3.1 mg/dL 2.3 - 3 .7 mg/dL [facility] Potassium [Moles/Vol] 3.8 mmol/L 3.5 - 5.1 mmol/L [facility] Sodium [Moles/Vol] 136 mmol/L 135 - 145 mmol/L [facility] Urea nitrogen [Mass/Vol] 26 mg/dL High 8 - 25 mg/dL [facility] Urea nitrogen/Creatinine [Mass ratio] 19.4 mg/mg 10.0 - 20.0 [facility] Services has implemented the eGFR calculation approach that does not have a coefficient for race that conforms to the NKF-ASN Task Force Recommendations. [facility] TSH DL <= 0.005 mIU/L Qnon 0 11-07-2022 Interpretation and review of laboratory results Normal [facility] TSH Qn 1.75 m[IU]/L [facility] Troponin x 2 (Now and Repeat in 3 hours)on 11-07-2022 Interp Troponin T Delta Change Probable non-acute cardiac injury or late presentation of acute injury. [facility] Interpretation and review of laboratory results Abnormal [facility] Troponin T 51 ng/L Critically high NINF - 22 ng/L [facility] Troponin T Delta % -7 % <20% of Baseline Troponin [facility] Troponin x 2 (Now and Repeat in 3 hours)Ordered By: Eloina Lama on 11-07-2022 Interpretation and review of laboratory results Abnormal [facility] Troponin T 55 ng/L Critically high NINF - 22 ng/L [facility] Troponin T Interpretation Possible acute cardiac injury. [facility] Bacteria identified Aer cx N om (Sput)Ordered By: Thaina Tierney on 11-06-2022 Microscopic observation Gram stain Nom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 Injury/Trauma or Illness?:Illness/Other How long have you had these symptoms (acute/chronic)?:Unknow n sob COMPARISON FILMS: AP chest 10/09/2018 from [facility]. IMPRESSION: FINDINGS/ 1. Patient is status post [...] few scattered calcified granulomas within the lungs. [employer] Workstation ID: [id number] [facility] Radiology Study observation (narrative) [facility] XR Chest 1 ViewOrdered By: Red Emmanuel on 11-03-2022 [facility] Work Phone: XR Foot Left 3+ Views (Stand khalif)on 11-03-2022 Chronic findings without plain film evidence of acute osseous abnormalities. Workstation ID: [id number] [employer] EXAMINATION: XR FOOT LEFT 3+ VIEWS (STANDARD) [...] tissue edema and vascular atherosclerotic calcification. Rohit Salgado MD - 11/03/2022 EXAMINATION: XR [...] of acute osseous abnormalities. Workstation ID: [id number] [facility] Radiology Study observation (narrative) [facility] XR Foot Left 3+ Views (Stand khalif)Ordered By: Rohit March on 11-03-2022 [facility] Work Phone: BNPon 10-30-2022 Natriuretic peptide B (Bld) [Mass/Vol] 93 pg/mL Normal 0-100 [facility] Comment on above: Performed By: #### B GAME ENGINEER #### [place] [address] Ph. [phone] Complete Blood Count with Au to Diffon 10-30-2022 BASO# BASO#: 0.0 Normal 0.0-0.1 [facility] Comment on above: Order Comment: resut s after 30 minutes of incubation at 37degree C possible cold rbc agglutination Performed By: #### D IFF, CBCAD #### [place] [address] Ph. [phone] BASO% BASO%: 0 Normal 0-1 [facility] Comment on above: Order Comment: resut s after 30 minutes of incubation at 37degree C possible cold rbc agglutination Performed By: #### D IFF, CBCAD #### [place] [address] Ph. [phone] Eosinophils (Bld) [#/Vol] 0.2 10*3/uL Normal 0.0-0.5 [facility] Comment on above: Order Comment: resut s after 30 minutes of incubation at 37degree C possible cold rbc agglutination Performed By: #### D IFF, CBCAD #### [place] [address] Ph. [phone] Eosinophils/100 WBC (Bld) 2 % Normal 0-5 [facility] Comment on above: Order Comment: resut s after 30 minutes of incubation at 37degree C possible cold rbc agglutination Performed By: #### D IFF, CBCAD #### [place] [address] Ph. [phone] Erythrocyte distribution width (RBC) [Ratio] 13.8 % Normal 11.5-14.5 [facility] Comment on above: Order Comment: resut s after 30 minutes of incubation at 37degree C possible cold rbc agglutination Performed By: #### D IFF, CBCAD #### [place] [address] Ph. [phone] Hematocrit (Bld) [Volume fraction] 39.9 % Low 42.0-52.0 [facility] Comment on above: Order Comment: resut s after 30 minutes of incubation at 37degree C possible cold rbc agglutination Performed By: #### D IFF, CBCAD #### [place] [address] Ph. [phone] Hemoglobin (Bld) [Mass/Vol] 13.7 g/dL Normal 13.5-17.5 [facility] Comment on above: Order Comment: resut s after 30 minutes of incubation at 37degree C possible cold rbc agglutination Performed By: #### D IFF, CBCAD #### [place] [address] Ph. [phone] Lymphocytes (Bld) [#/Vol] 0.7 10*3/uL Low 1.0-4.0 [facility] Comment on above: Order Comment: resut s after 30 minutes of incubation at 37degree C possible cold rbc agglutination Performed By: #### D IFF, CBCAD #### [place] [address] Ph. [phone] Lymphocytes/100 WBC (Bld) 6 % Low 20-40 [facility] Comment on above: Order Comment: resut s after 30 minutes of incubation at 37degree C possible cold rbc agglutination Performed By: #### D IFF, CBCAD #### [place] [address] Ph. [phone] MCH (RBC) [Entitic mass] 31.3 pg Normal 27.0-35.0 [facility] Comment on above: Order Comment: resut s after 30 minutes of incubation at 37degree C possible cold rbc agglutination Performed By: #### D IFF, CBCAD #### [place] [address] Ph. [phone] MCHC (RBC) [Mass/Vol] 34.3 g/dL Normal 32.0-36.0 [facility] Comment on above: Order Comment: resut s after 30 minutes of incubation at 37degree C possible cold rbc agglutination Performed By: #### D IFF, CBCAD #### [place] [address] Ph. [phone] MCV (RBC) [Entitic vol] 91.1 fL Normal 80.0-100.0 [facility] Comment on above: Order Comment: resut s after 30 minutes of incubation at 37degree C possible cold rbc agglutination Performed By: #### D IFF, CBCAD #### [place] [address] Ph. [phone] Monocytes (Bld) [#/Vol] 0.8 10*3/uL Normal 0.3-1.0 [facility] Comment on above: Order Comment: resut s after 30 minutes of incubation at 37degree C possible cold rbc agglutination Performed By: #### D IFF, CBCAD #### [place] [address] Ph. [phone] Monocytes/100 WBC (Bld) 7 % Normal 1-15 [facility] Comment on above: Order Comment: resut s after 30 minutes of incubation at 37degree C possible cold rbc agglutination Performed By: #### D IFF, CBCAD #### [place] [address] Ph. [phone] Neutrophils (Bld) [#/Vol] 9.8 10*3/uL High 1.8-7.7 [facility] Comment on above: Order Comment: resut s after 30 minutes of incubation at 37degree C possible cold rbc agglutination Performed By: #### D IFF, CBCAD #### [place] [address] Ph. [phone] Neutrophils/100 WBC (Bld) 84 % High 50-70 [facility] Comment on above: Order Comment: resut s after 30 minutes of incubation at 37degree C possible cold rbc agglutination Performed By: #### D IFF, CBCAD #### [place] [address] Ph. [phone] Platelet mean volume (Bld) [Entitic vol] 10.1 fL Normal 9.4-12.3 [facility] Comment on above: Order Comment: resut s after 30 minutes of incubation at 37degree C possible cold rbc agglutination Performed By: #### D IFF, CBCAD #### [place] [address] Ph. [phone] Platelets (Bld) [#/Vol] 180 10*3/uL Normal 150-450 [facility] Comment on above: Order Comment: resut s after 30 minutes of incubation at 37degree C possible cold rbc agglutination Performed By: #### D IFF, CBCAD #### [place] [address] Ph. [phone] RBC (Bld) [#/Vol] 4.38 10*6/uL Low 4.70-6.10 [facility] Comment on above: Order Comment: resut s after 30 minutes of incubation at 37degree C possible cold rbc agglutination Performed By: #### D IFF, CBCAD #### [place] [address] Ph. [phone] WBC (Bld) [#/Vol] 11.6 10*3/uL High 3.7-11.0 [facility] Comment on above: Order Comment: resut s after 30 minutes of incubation at 37degree C possible cold rbc agglutination Performed By: #### D IFF, CBCAD #### [place] [address] Ph. [phone] Comprehensive Metabolic Pane donta 10-30-2022 Albumin [Mass/Vol] 3.6 g/dL Normal 3.5-5.0 [facility] Comment on above: Performed By: #### C MP #### [place] [address] Ph. [phone] ALP [Catalytic activity/Vol] 85 U/L Normal 38-126 [facility] Comment on above: Performed By: #### C MP #### [place] [id number] Ph. [phone] ALT [Catalytic activity/Vol] 70 U/L High 0-50 [facility] Comment on above: Performed By: #### C MP #### [place] [id number] Ph. [phone] AST [Catalytic activity/Vol] 38 U/L Normal 17-59 [facility] Comment on above: Performed By: #### C MP #### [place] [address] Ph. [phone] Bilirubin [Mass/Vol] 0.9 mg/dL Normal 0.2-1.3 [facility] Comment on above: Performed By: #### C MP #### [place] [address] Ph. [phone] Calcium [Mass/Vol] 8.9 mg/dL Normal 8.4-10.2 [facility] Comment on above: Performed By: #### C MP #### [address] [address] Ph. [phone] Chloride [Moles/Vol] 102 mmol/L Normal 98-107 [facility] Comment on above: Performed By: #### C MP #### [place] [id number] Ph. [phone] CO2 [Moles/Vol] 25 mmol/L Normal 22-32 [facility] Comment on above: Performed By: #### C MP #### [address] [address] Ph. [phone] Creatinine [Mass/Vol] 1.02 mg/dL Normal 0.66-1.25 [facility] Comment on above: Performed By: #### C MP #### [place] [address] Ph. [phone] GFR/1.73 sq M.predicted among non-blacks MDRD (S/P/Bld) [Vol rate/Area] 73 mL/min/{1.73_m2} Normal >60 [facility] Comment on above: Result Comment: GFR calculated using CKD-EPI (2020) formula.\X0D0A\Stage 1 Kidney damage (e.g., protein in the urine) with normal GFR >=90\X0D0A\Stage 2 Kidney damage with mild decrease in GFR 60-89\X0D0A\Stage 3a Moderate decrease in GFR 45-59\X0D0A\Stage 3b Moderate decrease in GFR 30-44\X0D0A\Stage 4 Severe reduction in GFR 15-29\X0D0A\Stage 5 Kidney failure <15 Performed By: #### C MP #### [place] [address] Ph. [phone] Glucose [Mass/Vol] 103 mg/dL High 65-100 [facility] Comment on above: Performed By: #### C MP #### [place] [address] Ph. [phone] Potassium [Moles/Vol] 4.5 mmol/L Normal 3.6-5.0 [facility] Comment on above: Performed By: #### C MP #### [place] [address] Ph. [phone] Protein [Mass/Vol] 6.8 g/dL Normal 6.3-8.2 [facility] Comment on above: Performed By: #### C MP #### [place] [address] Ph. [phone] Sodium [Moles/Vol] 135 mmol/L Normal 135-145 [facility] Comment on above: Performed By: #### C MP #### [place] [id number] Ph. [phone] Urea nitrogen [Mass/Vol] 23 mg/dL High 9-20 [facility] Comment on above: Performed By: #### C MP #### [address] [address] Ph. [phone] DIFF REVIEWon 10-30-2022 DIFF REVIEW DIFFCOM: see comments Normal [facility] Comment on above: Order Comment: slide review rbc agglutination noted Performed By: #### D IFF, CBCAD #### [place] [id number] Ph. [phone] Laboratory - Chemistry and C hemistry - [...] OT WBC (Bld) [#/Vol] 11.6 10*3/uL High [facility] OT Laboratory - Microbiology an d Antimicrobial susceptibilityon 10-30-2022 SARS-CoV-2 (COVID-19) RNA OREN+probe Ql (Unsp spec) Not detected Not Detected [facility] No Panel Informationon 10-30 Adenovirus by PCR Not detected Not Detected [facility] Bordetella Parapertussis ([id number]) Not detected Not Detected [facility] Bordetella Parapertussis [...] PCR Not detected Not Detected [facility] Human Rhinovirus/Enteroviru s by PCR Not detected Not Detected [facility] [...] comments [facility] slide review rbc agglutination noted [facility] Eosinophils Absolute 0.2 [facility] Interpretation and review of laboratory results Abnormal [facility] Lymphocytes Absolute 0.7 Low [facility] Monocytes Absolute 0.8 [facility] T Neutrophils Absolute 9.8 High [facility] resuts after 30 tracy bianka of incubation at 37degree C possible cold rbc agglutination [facility] 1. Questionable left infrahilar infiltrate. 2. Slight bibasilar atelectasis. 3. Chronic changes and findings of COPD. [facility] EXAM: XR CHEST KATELYN BLE HISTORY: TECH NOTES: Cough Fever Emesis Shortness [...] Report electronically signed by: Dr. Dashawn Dai [facility] Dashawn Dai, DO - 10/30/2022 [...] 3. Chronic changes and findings of COPD. [email or web address] Work Phone: GFR, Estimated 73 - [facility] Comment on above: GFR calculated using CKD-EPI [...] Interpretation and review of laboratory results Abnormal [facility] Radiology Study observation (narrative) [email or web address] Work Phone: No Panel InformationOrdered By: Dashawn Dai on 10-30-2022 [facility] Phone: Respiratory Panelon 10-31-19 23 Adenovirus Not detected Normal Not Detected [facility] Comment on above: Performed By: #### R ESPAN #### [place] [id number] Ph. [phone] Bordetella Parapertussis ([id number]) Not detected Normal Not Detected [facility] Comment on above: Performed By: #### R ESPAN #### [place] [address] Ph. [phone] Bordetella Parapertussis (ptxP) Not detected Normal Not Detected [facility] Comment on above: Performed By: #### R ESPAN #### [address] [address] Ph. [phone] Chlamydia Pneumoniae Not detected Normal Not Detected [facility] Comment on above: Performed By: #### R ESPWILLIAMS #### [address] [address] Ph. [phone] Coronavirus 229E Not detected Normal Not Detected [facility] Comment on above: Performed By: #### R EDVIN #### [address] [address] Ph. [phone] Coronavirus HKU1 Not detected Normal Not Detected [facility] Comment on above: Performed By: #### R EDVIN #### [address] [address] Ph. [phone] Coronavirus NL63 Not detected Normal Not Detected [facility] Comment on above: Performed By: #### R EDVIN #### [address] [address] Ph. [phone] Coronavirus OC43 Not detected Normal Not Detected [facility] Comment on above: Performed By: #### R EDVIN #### [address] [address] Ph. [phone] COV-2 RP Not detected Normal Not Detected [facility] Comment on above: Performed By: #### Cher PARDO #### [address] [address] Ph. [phone] Human Metapneumovirus Not detected Normal Not Detected [facility] Comment on above: Performed By: #### R EDVIN #### [address] [address] Ph. [phone] Human Rhinovirus/Enteroviru s Not detected Normal Not Detected [facility] Comment on above: Performed By: #### R EDVIN #### [address] [address] Ph. [phone] Influenza A Not detected Normal Not Detected [facility] Comment on above: Performed By: #### R EDVIN #### [place] [address] [place] [address] Ph. [phone] Influenza B Not detected Normal Not Detected [facility] Comment on above: Performed By: #### R EDVIN #### [address] [address] Ph. [phone] Mycoplasma Pneumoniae Not detected Normal Not Detected [facility] Comment on above: Performed By: #### R EDVIN #### [address] [address] Ph. [phone] Parainfluenza Virus 1 Not detected Normal Not Detected [facility] Comment on above: Performed By: #### Cher PARDO #### [address] [address] Ph. [phone] Parainfluenza Virus 2 Not detected Normal Not Detected [facility] Comment on above: Performed By: #### Cher PARDO #### [address] [address] Ph. [phone] Parainfluenza Virus 3 Not detected Normal Not Detected [facility] Comment on above: Performed By: #### Cher PARDO #### [address] [address] Ph. [phone] Parainfluenza Virus 4 Not detected Normal Not Detected [facility] Comment on above: Performed By: #### Cher PARDO #### [address] [address] Ph. [phone] Respiratory Syncytial Virus Not detected Normal Not Detected [facility] Comment on above: Performed By: #### Cher PARDO #### [address] [address] Ph. [phone] XR CHEST PORTABLEon 10-31-19 23 XR CHEST PORTABLE RADRPT EXAM: XR CHEST [...] Dashawn Dai DO 10/30/22 Final result Normal [facility] XR Chest 2 Views*on 10-28-19 XR Chest 2 Views* Findings: Median sternotomy. Cardiopericardial silhouette normal. Aorta calcified and tortuous. Pulmonary vasculature normal. Lungs hyperinflated. Scarring left lung base. Mild blunting right costophrenic angle. IMPRESSION: Small right pleural effusion versus pleural thickening. Emphysema. Report reported and signed by Joe Davis on 10/27/2022 1621 Normal [facility] Medical Assistant Float CT CHEST WITHOUT CONTRASTon 05-11-2022 CT CHEST [...] intrathoracic adenopathy. 6. Small sliding hiatal hernia. [employer] Workstation ID: [id number] Dictated by: CRISTIAN BURR on Prerna May 12, 2022 1:59:45 PM EDT Transcribed by: CHARLIE PETERSEN on MonMay 12, 2022 2:42:35 PM EDT Finalized by: CRISTIAN BURR on Prerna May 12, 2022 5:26:02 PM EDT Normal [facility] Comment on above: Order Comment: Injur y/Trauma or Illness?:Illness/Other How long have you had these symptoms (acute/chronic)?:Chronic Reason for exam?:lung nodule f/u- pt has no current complaints Type of Exam?:Initial Additional signs and symptoms?:n/a Creatinine and Glomerular fi ltration rate.predicted panel (S/P/Bld)Ordered By: Cristian Beaver on 04-25-2022 Creatinine [Mass/Vol] 1.16 mg/dL 0.64-1.27 [facility] Estimated glomerular filtrat ion rate (GFR) non- AmericanOrdered By: Cristian Beaver on 04-25-2022 GFR/1.73 sq M.predicted among non-blacks MDRD (S/P/Bld) [Vol rate/Area] 60 mL/Min [facility] No Panel InformationOrdered By: Cristian Beaver on 04-25-2022 Estimated GFR () > 60 mL/Min [facility] Comment on above: GFR estimated refere nce range: According to KDOQI guidelines, <60 ml/min/1.73m2 is sufficient to diagnose a patient with chronic kidney disease. Pharmacy Creatinine Clearance (Chem 64.62 [facility] Serum or plasma urea nitroge n measurement (mass/volume)Ordered By: Cristian Beaver on 04-25-2022 Urea nitrogen [Mass/Vol] 14 mg/dL 05-20 [facility] COVID-19, MolecularOrdered B y: Freddie Avila on 04-15-2022 SARS-CoV-2 (COVID-19) RNA OREN+probe Ql (Resp) Not detected Not Detected [facility] CT Angiogram Abdominal Aorta With [...] 5. Chronic findings including severe pancolonic diverticulosis. [employer] Workstation ID: [id number] [place] [facility] EXAMINATION: CT ANGIOGRAM ABDOMINAL AORTA WITH LOWER [...] common femoral artery and profunda. 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 Below the level of the distal anastomosis, there is continuous flow in the peroneal artery with no identified flow in the anterior posterior tibial arteries. [facility] Chad Lezama MD - 04/15/2022 EXAMINATION: CT [...] common femoral artery and profunda. The left alatna SFA is occluded with extension through the [...] severe pancolonic diverticulosis. NELYD/karie Workstation ID: [id number] [facility] CT Angiogram Abdominal Aorta With Lower ExtremityOrdered By: Chad Lezama on 04-15-2022 [facility] Work Phone: SARS-CoV-2 (COVID-19) RNA NA A+probe Ql (Resp)Ordered By: Freddie Avila on 04-15-2022 Interpretation and review of laboratory results Normal [facility] This test was perfor med under the FDA's Emergency Use Authorization (EUA). [...] at the following links: For Healthcare Providers: https://www.fda.gov/med ia/524555/download For Patients: https://www.fda.gov/med ia/850408/download [facility] Basic metabolic 2000 panelon 04-14-2022 Anion gap [Moles/Vol] 16 mmol/L 10 - 2 0 mmol/L [facility] Calcium [Mass/Vol] 9.5 mg/dL 8.4 - 10. 2 mg/dL [facility] Chloride [Moles/Vol] 105 mmol/L 98 - 10 8 mmol/L [facility] Creatinine [Mass/Vol] 0.96 mg/dL 0.80 - 1.30 mg/dL [facility] GFR/1.73 sq M.predicted CKD-EPI (S/P/Bld) [Vol rate/Area] 78 - PINF [facility] Comment on above: Estimated GFR was ca lculated using the 2020 CKD-EPI creatinine equation. Glucose [Mass/Vol] 93 mg/dL 65 - 99 mg/dL [facility] HCO3 [Moles/Vol] 24 mmol/L 21 - 32 mmol/L [facility] Interpretation and review of laboratory results Normal [facility] Potassium [Moles/Vol] 4.2 mmol/L 3.5 - 5.1 mmol/L [facility] Sodium [Moles/Vol] 141 mmol/L 135 - 145 mmol/L [facility] Urea nitrogen [Mass/Vol] 13 mg/dL 8 - 25 mg/dL [facility] Urea nitrogen/Creatinine [Mass ratio] 13.5 mg/mg 10 - 20 [facility] Laborator y Services has implemented the eGFR calculation approach that does not have a coefficient for race that conforms to the NKF-ASN Task Force Recommendations. [facility] CBC Auto Differentialon 03-28 Basophils (Bld) [#/Vol] 0.03 10*3/uL [facility] Basophils/100 WBC (Bld) 0.5 % [facility] Eosinophils (Bld) [#/Vol] 0.11 10*3/uL [facility] Eosinophils/100 WBC (Bld) 1.9 % [facility] Erythrocyte distribution width (RBC) [Entitic vol] 13.7 % 11.6 - 14.8 % [facility] Hematocrit (Bld) [Volume fraction] 41.7 % 41 - 53 % [facility] Hemoglobin (Bld) [Mass/Vol] 14.0 g/dL 13.5 - 17.5 g/dL [facility] Immature granulocytes (Bld) [#/Vol] 0.03 10*3/uL [facility] Immature granulocytes/100 WBC (Bld) 0.50 % [facility] Comment on above: The IG parameter is the percentage of metamyelocytes, myelocytes and promyelocytes. An immature granulocyte count (IG) of 1% or more suggests the possibility of infection, an IG count of 3% is very likely related to an infection. Interpretation and review of laboratory results Abnormal [facility] Lymphocytes (Bld) [#/Vol] 0.85 10*3/uL Low [facility] Lymphocytes/100 WBC (Bld) 14.9 % [facility] MCH (RBC) [Entitic mass] 31.3 pg 26 - 34 pg [facility] MCHC (RBC) [Mass/Vol] 33.6 g/dL 31 - 37 g/dL [facility] Comment on above: Cold Agglutinin pres ent MCV (RBC) [Entitic vol] 93.3 fL 80 - 100 fL [facility] Monocytes (Bld) [#/Vol] 0.66 10*3/uL [facility] Monocytes/100 WBC (Bld) 11.6 % [facility] Neutrophils (Bld) [#/Vol] 4.01 10*3/uL [facility] Neutrophils/100 WBC (Bld) 70.6 % [facility] Nucleated RBC (Bld) [#/Vol] 0.00 10*3/uL [facility] Nucleated RBC/100 WBC (Bld) [Ratio] 0.0 % [facility] Platelet mean volume (Bld) [Entitic vol] 10.6 fL 9.4 - 12.4 fL [facility] Platelets (Bld) [#/Vol] 179 10*3/uL [facility] RBC (Bld) [#/Vol] 4.47 10*6/uL Low [facility] ealth WBC (Bld) [#/Vol] 5.69 10*3/uL [facility] Abdominal Aorta With Lower Extremityon 04-14-2022 Radiology Study observation (narrative) [facility] INR Coag (PPP) [Relative abi e]on 04-14-2022 Interpretation and review of laboratory results Normal [facility] PT Coag (PPP) [Time] 13.7 s [facility] During the induction phase of oral anticoagulation, the INR may not reflect the anticoagulation status of the patient. Therapeutic ranges for INR's are: Most clinical situations: INR 2.0-3.0 Mechanical Prosthetic Valve: INR 2.5-3.5 Critical: INR >5.0 [facility] Lavender Topon 04-14-2022 Extra Tube Hold for add-ons. [facility] Comment on above: Auto resulted. [place] Topon 04-14-2022 Extra Tube Hold for add-ons. [facility] Comment on above: Auto resulted. [facility] No Panel Informationon 04-14 Extra Tube Hold for add-ons. [facility] Comment on above: Auto resulted. [facility] PT/INRon 04-14-2022 INR Coag (PPP) [Relative time] 1.1 {INR} 0.8 - 1.1 [facility] US Doppler ankle/brachial in dexon 04-14-2022 Patient Info Name: TRISTIN POWELL Age: 82 years : 1940 Gender: Male Exam Date: 04/14/2022 9:45 PM Patient Status: Emergency Transplant Worker: Justyna Keita RVT, EMIRMS Attending Physician: CARSON BROCK Indications I73.9 - Peripheral vascular disease, unspecified Procedure Description 20707 Limited bilateral noninvasive physiologic studies of upper [...] by Richard Proctor on 04/14/2022 10:23 PM [facility] SYNAPSE CV India Proctor, DO - 04/14/2022 Patient Info Name: TRISTIN POWELL Age: 82 years : 1940 Gender: Male Exam Date: 04/14/2022 9:45 PM Patient Status: Emergency Transplant Worker: Justyna Keita RVT, RDMS Attending Physician: CARSON BROCK Indications I73.9 - Peripheral vascular disease, unspecified Procedure Description 62337 Limited bilateral noninvasive physiologic studies of upper [...] by Richard Proctor on 04/14/2022 10:23 PM [facility] Radiology Study observation (narrative) [facility] Doppler ankle/brachial in dexOrdered By: Richard Proctor on 04-14-2022 [facility] Work Phone: US Venous, Unilat, [...] by Nabor Beard on 04/14/2022 1546 Normal [facility] Specialist CREATININEon 01-28-2022 Creatinine [Mass/Vol] 1.32 mg/dL Critically high 0.70-1.30 [facility] Comment on above: Performed By: #### C LOULOU #### [facility] Laboratory [address] [place] [address] Dr. Benedict Edmondson EGFR-AF SCOTTISH >60 Normal >=60 [facility] Comment on above: Performed By: #### C LOULOU #### [facility] Laboratory [address] [address] [address] Benedict Edmondson EGFR-NON AF SCOTTISH >60 Normal >=60 [facility] Comment on above: Performed By: #### C LOULOU #### [facility] [address] [place] [address] CHEST WO W CONon 01-29-20 [...] by: MIKEY CALDWELL Date: 2022-01-28 17:14 Normal [facility] CBC Auto Differentialon 12-27 Basophils (Bld) [#/Vol] 0.02 10*3/uL [facility] Basophils/100 WBC (Bld) 0.5 % [facility] Eosinophils (Bld) [#/Vol] 0.18 10*3/uL [facility] Eosinophils/100 WBC (Bld) 4.4 % [facility] Erythrocyte distribution width (RBC) [Entitic vol] 14.7 % 11.6 - 14.8 % [facility] Hematocrit (Bld) [Volume fraction] 35.0 % Low 41 - 53 % [facility] Hemoglobin (Bld) [Mass/Vol] 12.1 g/dL Low 13.5 - 17.5 g/dL [facility] Immature granulocytes (Bld) [#/Vol] 0.01 10*3/uL [facility] Immature granulocytes/100 WBC (Bld) 0.20 % [facility] Comment on above: The IG parameter is the percentage of metamyelocytes, myelocytes and promyelocytes. An immature granulocyte count (IG) of 1% or more suggests the possibility of infection, an IG count of 3% is very likely related to an infection. Interpretation and review of laboratory results Abnormal [facility] Lymphocytes (Bld) [#/Vol] 0.67 10*3/uL Low [facility] Lymphocytes/100 WBC (Bld) 16.4 % [facility] MCH (RBC) [Entitic mass] 32.5 pg 26 - 34 pg [facility] MCHC (RBC) [Mass/Vol] 34.6 g/dL 31 - 37 g/dL [facility] MCV (RBC) [Entitic vol] 94.1 fL 80 - 100 fL [facility] Monocytes (Bld) [#/Vol] 0.61 10*3/uL [facility] Monocytes/100 WBC (Bld) 15.0 % [facility] Neutrophils (Bld) [#/Vol] 2.59 10*3/uL [facility] Neutrophils/100 WBC (Bld) 63.5 % [facility] Nucleated RBC (Bld) [#/Vol] 0.00 10*3/uL [facility] Nucleated RBC/100 WBC (Bld) [Ratio] 0.0 % [facility] Platelet mean volume (Bld) [Entitic vol] 10.4 fL 9.4 - 12.4 fL [facility] Platelets (Bld) [#/Vol] 119 10*3/uL Low [facility] RBC (Bld) [#/Vol] 3.72 10*6/uL Low [facility] ealt WBC (Bld) [#/Vol] 4.08 10*3/uL Low [facility] Basic metabolic 2000 panelon 01-20-2022 Anion gap [Moles/Vol] 13 mmol/L 10 - 2 0 mmol/L [facility] Calcium [Mass/Vol] 9.2 mg/dL 8.4 - 10. 2 mg/dL [facility] Chloride [Moles/Vol] 107 mmol/L 98 - 10 8 mmol/L [facility] Creatinine [Mass/Vol] 0.93 mg/dL 0.80 - 1.30 mg/dL [facility] GFR/1.73 sq M.predicted CKD-EPI (S/P/Bld) [Vol rate/Area] 76 - PINF [facility] Glucose [Mass/Vol] 89 mg/dL 65 - 99 mg/dL [facility] HCO3 [Moles/Vol] 25 mmol/L 21 - 32 mmol/L [facility] Interpretation and review of laboratory results Normal [facility] Potassium [Moles/Vol] 4.3 mmol/L 3.5 - 5.1 mmol/L [facility] Sodium [Moles/Vol] 141 mmol/L 135 - 145 mmol/L [facility] Urea nitrogen [Mass/Vol] 12 mg/dL 8 - 25 mg/dL [facility] Urea nitrogen/Creatinine [Mass ratio] 12.9 mg/mg 10 - 20 [facility] The eGFR should be u sed for monitoring renal function only and not for medication dosing. [facility] CBC Auto Differentialon 12-27 Basophils (Bld) [#/Vol] 0.02 10*3/uL [facility] Basophils/100 WBC (Bld) 0.4 % [facility] Eosinophils (Bld) [#/Vol] 0.18 10*3/uL [facility] Eosinophils/100 WBC (Bld) 3.8 % [facility] Erythrocyte distribution width (RBC) [Entitic vol] 15.0 % High 11.6 - 14.8 % [facility] Hematocrit (Bld) [Volume fraction] 41.6 % 41 - 53 % [facility] Hemoglobin (Bld) [Mass/Vol] 13.7 g/dL 13.5 - 17.5 g/dL [facility] Immature granulocytes (Bld) [#/Vol] 0.02 10*3/uL [facility] Immature granulocytes/100 WBC (Bld) 0.40 % [facility] Comment on above: The IG parameter is the percentage of metamyelocytes, myelocytes and promyelocytes. An immature granulocyte count (IG) of 1% or more suggests the possibility of infection, an IG count of 3% is very likely related to an infection. Interpretation and review of laboratory results Abnormal [facility] Lymphocytes (Bld) [#/Vol] 0.65 10*3/uL Low [facility] Lymphocytes/100 WBC (Bld) 13.7 % [facility] MCH (RBC) [Entitic mass] 31.5 pg 26 - 34 pg [facility] MCHC (RBC) [Mass/Vol] 32.9 g/dL 31 - 37 g/dL [facility] Comment on above: Cold Agglutinin pres ent MCV (RBC) [Entitic vol] 95.6 fL 80 - 100 fL [facility] Monocytes (Bld) [#/Vol] 0.57 10*3/uL [facility] Monocytes/100 WBC (Bld) 12.0 % [facility] Neutrophils (Bld) [#/Vol] 3.32 10*3/uL [facility] Neutrophils/100 WBC (Bld) 69.7 % [facility] Nucleated RBC (Bld) [#/Vol] 0.00 10*3/uL [facility] Nucleated RBC/100 WBC (Bld) [Ratio] 0.0 % [facility] Platelet mean volume (Bld) [Entitic vol] 10.9 fL 9.4 - 12.4 fL [facility] Platelets (Bld) [#/Vol] 132 10*3/uL Low [facility] RBC (Bld) [#/Vol] 4.35 10*6/uL Low [facility] Comment on above: Peripheral smear rev iewed manually WBC (Bld) [#/Vol] 4.76 10*3/uL [facility] Basic metabolic 2000 panelon 01-19-2022 Anion gap [Moles/Vol] 15 mmol/L 10 - 2 0 mmol/L [facility] Calcium [Mass/Vol] 8.4 mg/dL 8.4 - 10. 2 mg/dL [facility] Chloride [Moles/Vol] 108 mmol/L 98 - 10 8 mmol/L [facility] Creatinine [Mass/Vol] 1.08 mg/dL 0.80 - 1.30 mg/dL [facility] GFR/1.73 sq M.predicted CKD-EPI (S/P/Bld) [Vol rate/Area] 63 - PINF [facility] Glucose [Mass/Vol] 90 mg/dL 65 - 99 mg/dL [facility] HCO3 [Moles/Vol] 22 mmol/L 21 - 32 mmol/L [facility] Interpretation and review of laboratory results Normal [facility] Potassium [Moles/Vol] 4.1 mmol/L 3.5 - 5.1 mmol/L [facility] Sodium [Moles/Vol] 141 mmol/L 135 - 145 mmol/L [facility] Urea nitrogen [Mass/Vol] 13 mg/dL 8 - 25 mg/dL [facility] Urea nitrogen/Creatinine [Mass ratio] 12.0 mg/mg 10 - 20 [facility] The eGFR should be u sed for monitoring renal function only and not for medication dosing. [facility] CBC Auto Differentialon 12-27 Basophils (Bld) [#/Vol] 0.02 10*3/uL [facility] Basophils/100 WBC (Bld) 0.4 % [facility] Eosinophils (Bld) [#/Vol] 0.11 10*3/uL [facility] Eosinophils/100 WBC (Bld) 2.1 % [facility] Erythrocyte distribution width (RBC) [Entitic vol] 15.1 % High 11.6 - 14.8 % [facility] Hematocrit (Bld) [Volume fraction] 36.8 % Low 41 - 53 % [facility] Hemoglobin (Bld) [Mass/Vol] 12.4 g/dL Low 13.5 - 17.5 g/dL [facility] Immature granulocytes (Bld) [#/Vol] 0.01 10*3/uL [facility] Immature granulocytes/100 WBC (Bld) 0.20 % [facility] Comment on above: The IG parameter is the percentage of metamyelocytes, myelocytes and promyelocytes. An immature granulocyte count (IG) of 1% or more suggests the possibility of infection, an IG count of 3% is very likely related to an infection. Interpretation and review of laboratory results Abnormal [facility] Lymphocytes (Bld) [#/Vol] 0.79 10*3/uL Low [facility] Lymphocytes/100 WBC (Bld) 14.8 % [facility] MCH (RBC) [Entitic mass] 31.4 pg 26 - 34 pg [facility] MCHC (RBC) [Mass/Vol] 33.7 g/dL 31 - 37 g/dL [facility] MCV (RBC) [Entitic vol] 93.2 fL 80 - 100 fL [facility] Monocytes (Bld) [#/Vol] 0.66 10*3/uL [facility] Monocytes/100 WBC (Bld) 12.4 % [facility] Neutrophils (Bld) [#/Vol] 3.75 10*3/uL [facility] Neutrophils/100 WBC (Bld) 70.1 % [facility] Nucleated RBC (Bld) [#/Vol] 0.00 10*3/uL [facility] Nucleated RBC/100 WBC (Bld) [Ratio] 0.0 % [facility] Platelet mean volume (Bld) [Entitic vol] 10.7 fL 9.4 - 12.4 fL [facility] Platelets (Bld) [#/Vol] 115 10*3/uL Low [facility] RBC (Bld) [#/Vol] 3.95 10*6/uL Low [facility] WBC (Bld) [#/Vol] 5.34 10*3/uL [facility] CT Angiogram Abdominal Aorta With Lower [...] findings as described above. Workstation ID: [id number] [employer] EXAMINATION: CT ANGIOGRAM ABDOMINAL AORTA WITH LOWER [...] AORTA/BRANCH VESSELS: Moderate aortic calcification without aneurysm. Ekjm-ny-uevcjdhk atherosclerosis involving the iliac vessels without aneurysm or significant stenosis. LLE: The left common femoral to tibioperoneal trunk bypass graft is patent. 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 Again seen is [...] Incompletely evaluated due to beam hardening artifact. [employer] Matilda Cheng MD - 01/19/2022 EXAMINATION: CT [...] AORTA/BRANCH VESSELS: Moderate aortic calcification without aneurysm. Tlud-qu-lrnnxkpl atherosclerosis involving the iliac vessels without aneurysm or significant stenosis. LLE: The left common femoral to tibioperoneal trunk bypass graft is patent. 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 Again seen is [...] findings as described above. Workstation ID: [id number] [facility] Radiology Study observation (narrative) [facility] CT Angiogram Abdominal Aorta With Lower ExtremityOrdered By: Matilda Cheng on 01-19-2022 [facility] Work Phone: CT Chest Without Contraston 01-19-2022 [...] 2017. Laura Polo, et al. January 2017. [employer] Workstation ID: [id number] [place] [facility] RIS EXAMINATION: CT CHEST WITHOUT CONTRAST - [...] noted with dense calcifications seen throughout the alatna coronary arteries along with coronary arterial stents. [...] hepatic parenchyma, compatible with mild fatty infiltration. [facility], Rajiv velez MD - 01/19/2022 EXAMINATION: CT CHEST WITHOUT [...] noted with dense calcifications seen throughout the alatna coronary arteries along with coronary arterial stents. [...] 2017. Laura Polo et al. January 2017. [employer] Workstation ID: [id number] [facility] Radiology Study observation (narrative) [facility] CT Chest Without ContrastOrd ered By: Rajiv Oscar on 01-19-2022 [facility] Work Phone: ECG 12 [place] 01-19-2022 Atrial Rate 76 BPM [facility] P [place] -12 degrees [facility] P-R Interval 172 ms [facility] Q-T Interval 410 ms [facility] QRS Duration 98 ms [facility] QTC Calculation (Bezet) 461 ms [facility] R [place] 39 degrees [facility] T [place] 22 degrees [facility] Ventricular Rate 76 BPM [facility] Sinus rhythm with occasional Premature ventricular complexes Otherwise normal ECG Confirmed by Clark Donovan M.D. ([id number]) on 01/19/2022 10:38:16 AM MUSE [facility] EKGon 01-19-2022 Ordered by an unspecified provider. [facility] Ordered by an unspecified provider. [facility] Basic metabolic 2000 panelon 01-18-2022 Anion gap [Moles/Vol] 13 mmol/L 10 - 2 0 mmol/L [facility] Calcium [Mass/Vol] 9.2 mg/dL 8.4 - 10. 2 mg/dL [facility] Chloride [Moles/Vol] 103 mmol/L 98 - 10 8 mmol/L [facility] Creatinine [Mass/Vol] 1.10 mg/dL 0.80 - 1.30 mg/dL [facility] GFR/1.73 sq M.predicted CKD-EPI (S/P/Bld) [Vol rate/Area] 62 - PINF [facility] Glucose [Mass/Vol] 107 mg/dL High 65 - 99 mg/dL [facility] HCO3 [Moles/Vol] 26 mmol/L 21 - 32 mmol/L [facility] Potassium [Moles/Vol] 4.2 mmol/L 3.5 - 5.1 mmol/L [facility] Sodium [Moles/Vol] 138 mmol/L 135 - 145 mmol/L [facility] Urea nitrogen [Mass/Vol] 14 mg/dL 8 - 25 mg/dL [facility] Urea nitrogen/Creatinine [Mass ratio] 12.7 mg/mg 10 - 20 [facility] The eGFR should be u sed for monitoring renal function only and not for medication dosing. [facility] CBC Auto Differentialon 12-27 Basophils (Bld) [#/Vol] 0.02 10*3/uL [facility] Basophils/100 WBC (Bld) 0.3 % [facility] Eosinophils (Bld) [#/Vol] 0.14 10*3/uL [facility] Eosinophils/100 WBC (Bld) 2.1 % [facility] Erythrocyte distribution width (RBC) [Entitic vol] 15.3 % High 11.6 - 14.8 % [facility] Hematocrit (Bld) [Volume fraction] 39.2 % Low 41 - 53 % [facility] Hemoglobin (Bld) [Mass/Vol] 14.0 g/dL 13.5 - 17.5 g/dL [facility] Immature granulocytes (Bld) [#/Vol] 0.02 10*3/uL [facility] Immature granulocytes/100 WBC (Bld) 0.30 % [facility] Comment on above: The IG parameter is the percentage of metamyelocytes, myelocytes and promyelocytes. An immature granulocyte count (IG) of 1% or more suggests the possibility of infection, an IG count of 3% is very likely related to an infection. Interpretation and review of laboratory results Abnormal [facility] Lymphocytes (Bld) [#/Vol] 0.75 10*3/uL Low [facility] Lymphocytes/100 WBC (Bld) 11.1 % [facility] MCH (RBC) [Entitic mass] 33.3 pg 26 - 34 pg [facility] MCHC (RBC) [Mass/Vol] 35.7 g/dL 31 - 37 g/dL [facility] MCV (RBC) [Entitic vol] 93.1 fL 80 - 100 fL [facility] Monocytes (Bld) [#/Vol] 0.78 10*3/uL [facility] Monocytes/100 WBC (Bld) 11.5 % [facility] Neutrophils (Bld) [#/Vol] 5.05 10*3/uL [facility] Neutrophils/100 WBC (Bld) 74.7 % [facility] Nucleated RBC (Bld) [#/Vol] 0.00 10*3/uL [facility] Nucleated RBC/100 WBC (Bld) [Ratio] 0.0 % [facility] Platelet mean volume (Bld) [Entitic vol] 10.4 fL 9.4 - 12.4 fL [facility] Platelets (Bld) [#/Vol] 150 10*3/uL [facility] RBC (Bld) [#/Vol] 4.21 10*6/uL Low [facility] WBC (Bld) [#/Vol] 6.76 10*3/uL [facility] Inflammationon 01-19-20 CRP [Mass/Vol] 63.5 mg/L High 0 - 10 mg/L [facility] h ECG 12 Leadon 01-18-2022 Mikey Mcguire MD 01/18/2022 11:27 PM ECG 12 Lead Date/Time: 01/18/2022 11:27 PM Performed by: Mikey Mcguire MD Authorized by: Mikey Mcguire MD Interpreted by ED attending physician Rhythm: sinus rhythm BPM: 76 Ectopy: PVCs Conduction: conduction normal ST Segments: ST segments normal T Waves: T waves normal Clinical impression: non-specific ECG [facility] ESR Westergren method (Bld) [Velocity]on 01-18-2022 ESR (Bld) [Velocity] 18 mm/h [facility] Interpretation and review of laboratory results Normal [facility] Friedman Topon 01-18-2022 Extra Tube Hold for add-ons. [facility] Comment on above: Auto resulted. [facility] No Panel Informationon 01-18 Extra Tube Hold for add-ons. [facility] Comment on above: Auto resulted. [facility] Interpretation and review of laboratory results Abnormal [facility] POC Venous Blood Gases with Full PanelOrdered By: Elana Chavez on 01-18-2022 Base excess Calc (BldV) [Moles/Vol] 0.2 mmol/L -2 - 2 [facility] Calcium.ionized [Mass/Vol] 4.7 mg/dL 4.5 - 5.3 mg/dL [facility] Chloride [Moles/Vol] 104 mmol/L 98 - 10 8 mmol/L [facility] CO2 (BldV) [Partial pressure] 41.3 mm[Hg] [facility] CO2 [Moles/Vol] 25 mmol/L 21 - 32 mmol/L [facility] Creatinine [Mass/Vol] 1.35 mg/dL High 0.80 - 1.30 mg/dL [facility] GFR 48 Low - PINF [facility] Glucose [Mass/Vol] 98 mg/dL 65 - 99 mg/dL [facility] Hematocrit (Bld) [Volume fraction] 42 % 41 - 53 % [facility] Hemoglobin (Bld) [Mass/Vol] 14.4 g/dL 13.5 - 17.5 g/dL [facility] Interpretation and review of laboratory results Abnormal [facility] Lactate (Bld) [Mass/Vol] 1.0 mmol/L 0.6 - 2 mmol/L [facility] Oxygen (BldV) [Partial pressure] 51 mm[Hg] High [facility] Oxygen saturation in Venous blood 85.2 % High 40 - 70 % [facility] pH (BldV) 7.40 [pH] 7.32 - 7.42 [facility] Potassium [Moles/Vol] 4.0 mmol/L 3.5 - 5.1 mmol/L [facility] Sodium [Moles/Vol] 141 mmol/L 135 - 145 mmol/L [facility] Urea nitrogen [Mass/Vol] 14 mg/dL 8 - 25 mg/dL [facility] The eGFR should be u sed for monitoring renal function only and not for medication dosing. [facility] [place] Topon 01-18-2022 [facility] XR Ankle Left 3+ Views (Hsekhar dard)on 01-18-2022 FINDINGS/ Distal fibula ORIF. 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 No acute periosteal reaction. Severe tibiotalar osteoarthritis. Diffuse soft tissue edema about the remainder of the foot. No soft tissue gas. Vascular atherosclerotic soft tissue calcifications. Workstation ID: [id number] [employer] EXAMINATION: XR ANKLE LEFT 3+ VIEWS (STANDARD) 01/18/2022 9:01 pm HISTORY: ORDERING SYSTEM PROVIDED HISTORY: left ankle/stump cellulitis, r/o osteo, TECHNOLOGIST PROVIDED HISTORY: Illness/Other Reason for exam: left ankle/stump cellulitis, r/o osteo Cancer History: unk Surgery, RadiationHistory: YES Encounter Type: Unknown Additional signs and symptoms: unk ORDERING SYSTEM PROVIDED DIAGNOSIS CODES: COMPARISON: 01/18/2022 [facility] Mikey Huerta MD - 01/18/2022 EXAMINATION: XR [...] atherosclerotic soft tissue calcifications. Workstation ID: [id number] [facility] Radiology Study observation (narrative) [facility] XR Tibia Fibula Left 2 Views on 01-18-2022 FINDINGS/ Distal fibular ORIF without evidence of hardware complication. No acute fracture identified. Tricompartmental osteophytes at the knee. No periosteal reaction. Moderate to severe tibiotalar osteoarthritis. Probable vascular stent in the popliteal fossa with several surrounding surgical clips. No soft tissue gas or obvious large fluid collection. Workstation ID: [id number] [facility] EXAMINATION: XR TIBIA FIBULA LEFT 2 VIEWS 01/18/2022 8:24 pm HISTORY: ORDERING SYSTEM PROVIDED HISTORY: infx r/o gas, TECHNOLOGIST PROVIDED HISTORY: Illness/Other Reason for exam: infx r/o gas Cancer History: unk Surgery, RadiationHistory: YES Encounter Type: Unknown Additional signs and symptoms: ORDERING SYSTEM PROVIDED DIAGNOSIS CODES: COMPARISON: 10/21/2019 [facility] Mikey Huerta MD - 01/18/2022 EXAMINATION: XR [...] obvious large fluid collection. Workstation ID: [id number] [facility] Radiology Study observation (narrative) [facility] XR Tibia Fibula Left 2 Views Ordered By: Mikey Huerta on 01-18-2022 [facility] Work Phone: CBCon 07-16-2021 ABSOLUTE BAS 0.0 10*3/uL Normal 0.0-0.2 [facility] Comment on above: Result Comment: Test ing performed at [place] [address] Performed By: #### A CBC #### [place] [address] ABSOLUTE EOS 0.00 10*3/uL Normal 0.0-0.7 [facility] Comment on above: Performed By: #### A CBC #### [place] [address] ABSOLUTE NEUTROPHIL COUNT 8.7 10*3/uL High 1.4-6.5 [facility] Comment on above: Performed By: #### A CBC #### [place] [address] Basophils/100 WBC (Bld) 0.0 % Normal 0.0-2.0 [facility] Comment on above: Performed By: #### A CBC #### [place] [address] DTYPE AUTO DIFF Normal [facility] Comment on above: Performed By: #### A CBC #### Testing performed at [place] [id number] Eosinophils/100 WBC (Bld) 0.0 % Normal 0.0-11.0 [facility] Comment on above: Performed By: #### A CBC #### Testing performed at [place] [id number] Lymphocytes (Bld) [#/Vol] 0.40 10*3/uL Low 1.2-3.4 [facility] Comment on above: Performed By: #### A CBC #### Testing performed at [address] [address] Lymphocytes/100 WBC (Bld) 4.2 % Low 20.0-55.0 [facility] Comment on above: Performed By: #### A CBC #### Testing performed at [address] [address] Monocytes (Bld) [#/Vol] 0.9 10*3/uL High 0.0-0.7 [facility] Comment on above: Performed By: #### A CBC #### Testing performed at [address] [address] Monocytes/100 WBC (Bld) 8.9 % Normal 0.0-10.0 [facility] Comment on above: Performed By: #### A CBC #### Testing performed at [address] [address] Neutrophils/100 WBC (Bld) 86.9 % High 37.0-75.0 [facility] Comment on above: Performed By: #### A CBC #### Testing performed at [address] [address] Erythrocyte distribution width (RBC) [Ratio] 15.4 % High 11.5-14.5 [facility] Comment on above: Performed By: #### A CBC #### Testing performed at [address] [address] Hematocrit (Bld) [Volume fraction] 34.2 % Low 42.0-52.0 [facility] Comment on above: Performed By: #### A CBC #### Testing performed at [address] [address] Hemoglobin (Bld) [Mass/Vol] 11.7 g/dL Low 14.0-18.0 [facility] Comment on above: Performed By: #### A CBC #### Testing performed at [address] [address] MCH (RBC) [Entitic mass] 31.4 pg Normal 26.0-35.0 [facility] Comment on above: Performed By: #### A CBC #### [place] [address] MCHC (RBC) [Mass/Vol] 34.3 g/dL Normal 27.0-37.0 [facility] Comment on above: Performed By: #### A CBC #### [place] [address] MCV (RBC) [Entitic vol] 91.6 fL Normal 80.0-100.0 [facility] Comment on above: Performed By: #### A CBC #### [place] [address] Platelet mean volume (Bld) [Entitic vol] 8.2 fL Normal 7.4-11.0 [facility] Comment on above: Result Comment: Test ing performed at [place] [address] Performed By: #### A CBC #### [place] [address] Platelets (Bld) [#/Vol] 127 10*3/uL Low 130.0-400.0 [facility] Comment on above: Performed By: #### A CBC #### [place] [address] RBC (Bld) [#/Vol] 3.73 10*6/uL Low 4.0-6.1 [facility] Comment on above: Performed By: #### A CBC #### [place] [address] WBC (Bld) [#/Vol] 10.0 10*3/uL Normal 3.6-11.0 [facility] Comment on above: Performed By: #### A CBC #### [place] [address] NOVEL CORONAVIRUSon 18-20 21 NARRATIVE This test was perfor med using isothermal OREN and has been approved as Emergency Use Authorization (EUA) for the qualitative detection [id number] nucleic acid. Normal [facility] Comment on above: Result Comment: Test ing performed at [place] [address] Performed By: #### C OVID #### Testing performed at [place] [id number] SARS-CoV-2 (COVID-19) RNA OREN+probe Ql (Unsp spec) Not detected Normal NOT DETECTED [facility] Comment on above: Result Comment: Nega [...] #### C OVID #### [place] [address] TYPE AND SCREEN CROSSMATCH C ONVERTIBLEon 07-15-2021 TYPE AND SCREEN CROSSMATCH CONVERTIBLE WORKUP EXPIRES 07/18/2021,2359 ABO/RH(D) O POSITIVE ANTIBODY SCREEN NEGATIVE ARM BAND NUMBER [id number] Testing performed at [place] [id number] Normal [facility] Comment on above: Performed By: #### T SCC #### Testing performed at [address] [address] Basic Metabolic Panelon 09-3 0-2020 Calcium [Mass/Vol] 9.6 mg/dL Normal 8.5-10.6 [facility] Chloride [Moles/Vol] 105 mmol/L Normal 98-107 [facility] CO2 [Moles/Vol] 29 mmol/L Normal 21-32 [facility] Creatinine [Mass/Vol] 0.99 mg/dL Normal 0.70-1.30 [facility] Glucose [Mass/Vol] 92 mg/dL Normal 70-99 [facility] Potassium [Moles/Vol] 4.6 mmol/L Normal 3.5-5.1 [facility] Sodium [Moles/Vol] 142 mmol/L Normal 136-145 [facility] Urea nitrogen (BldV) [Mass/Vol] 15 mg/dL Normal 7.0-18.0 [facility] Urea nitrogen/Creatinine [Mass ratio] 15 mg/mg Normal [facility] CBC with Differentialon 09-3 0-2020 Basophils (Bld) [#/Vol] 0.0 thou/mcL Normal 0.0-0.2 [facility] Basophils/100 WBC (Bld) 0.7 % Normal 0-3 [facility] Differential cell count method Nom (Bld) AUTOMATED DIFFERENTIAL Normal [facility] Eosinophils (Bld) [#/Vol] 0.0 thou/mcL Normal 0.0-0.4 [facility] Eosinophils/100 WBC (Bld) 1.2 % Normal 0-7 [facility] Lymphocytes (Bld) [#/Vol] 0.6 thou/mcL Low 0.7-4.5 [facility] Lymphocytes/100 WBC (Bld) 18.3 % Normal 14-46 [facility] Monocytes (Bld) [#/Vol] 0.5 thou/mcL Normal 0.1-1.0 [facility] Monocytes/100 WBC (Bld) 13.2 % High 4-13 [facility] Neutrophils (Bld) [#/Vol] 2.3 thou/mcL Normal 1.5-7.8 [facility] Neutrophils/100 WBC (Bld) 66.6 % Normal 40-74 [facility] Erythrocyte distribution width (RBC) [Entitic vol] 16.1 % High 11.7-15.0 [facility] Hematocrit (Bld) [Volume fraction] 38.2 % Normal 34.0-50.0 [facility] Hemoglobin (Bld) [Mass/Vol] 13.6 g/dL Normal 11.5-17.0 [facility] MCH (RBC) [Entitic mass] 33.2 Picograms Normal 27.0-34.0 [facility] MCHC (RBC) [Mass/Vol] 35.6 g/dL Normal 32.0-36.0 [facility] MCV (RBC) [Entitic vol] 93.2 fL Normal 80-98 [facility] Platelet mean volume (Bld) [Entitic vol] 8.6 fL Normal 7.5-11.2 [facility] Platelets (Bld) [#/Vol] 179 thou/mcL Normal 140-415 [facility] Comment on above: Result Comment: Annetta fied by repeat analysis RBC (Bld) [#/Vol] 4.10 x(10)6/mcL Normal 3.80-5.60 [facility] [place] WBC (Bld) [#/Vol] 3.5 thou/mcL Low 4.0-10.5 [facility] Comment on above: Result Comment: ANNETTA FIED BY SLIDE REVIEW Partial Thromboplastin Time (aPTT)on 05-27-2020 aPTT Coag (PPP) [Time] 27.4 Sec Normal 23.2-34.6 [facility] Prothrombin Timeon 0 INR Coag (Bld) [Relative time] 1.1 {INR} Normal [facility] Comment on above: Result Comment: MAGALYS MUNOZ THE INDUCTION PHASE OF ORAL ANTICOAGULATION, THE INR MAY NOT REFLECT THE ANTICOAGULANT STATUS OF THE PATIENT. THERAPEUTIC RANGES FOR INR'S ARE: MOST CLINICAL SITUATIONS: INR 2.0-3.0 MECHANICAL PROSTHETIC VALVES: INR 2.5-3.5 CRITICAL: INR 5.0 PT Coag (PPP) [Time] 14.5 Sec Normal 11.9-14.6 [facility] US DOPPLER CAROTIDon 020 Non-Invasive Vascula r _ Patient: SHERRY TRISTIN [facility]az[facility] Rec#: [id number] (Age): 1940(80y) Study Date: 03/16/2020 Room#: Type: Outpatient Sex: M _ Reading: Radha Su DO, RVT, RPLUIZA, FSVM Referring: Mohsen Sarabia MD, NATANAEL Plant Production Manager: Wagner Giron RVT, RDLA Procedure Info: [id number]... Study Quality: _ Diagnosis: I65.23 Occlusion and stenosis of bilateral carotid arteries Carotid Duplex (Previous study 03/18/2019 ) _ Conclusions There was a 40-59% stenosis in the right internal carotid artery. The right vertebral artery was patent with antegrade flow. Unchanged compared to prior study There was a 40-59% stenosis in the left internal carotid artery. The left vertebral artery was patent with antegrade flow. Progression of disease compared to prior study. _ Measurements Right Carotid PSV Name Value Units [...] by: Radha Su DO, RVT, NATANAEL, FSYVES [facility] Interface, Rad In [facility] - 03/16/2020 1:20 PM EDT Non-Invasive Vascular _ Patient: SHERRY [facility]azan [facility] Rec#: [id number] (Age): 1940(80y) Study Date: 03/16/2020 Room#: Type: Outpatient Sex: M _ Reading: Radha Su DO, RVT, NATANAEL, FSYVES Referring: Mohsen Sarabia MD, NATANAEL Plant Production Manager: Wagner Giron RVT, MEI Procedure Info: [id number]... Study Quality: _ Diagnosis: I65.23 Occlusion and stenosis of bilateral carotid arteries Carotid Duplex (Previous study 03/18/2019 ) _ Conclusions There was a 40-59% stenosis in the right internal carotid artery. The right vertebral artery was patent with antegrade flow. Unchanged compared to prior study There was a 40-59% stenosis in the left internal carotid artery. The left vertebral artery was patent with antegrade flow. Progression of disease compared to prior study. 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 _ Finding Grids Lower PVR Waveforms Right Left Ankle B B Transmet B _ Ahrper --------- B = Abnormal Toe PPG Waveforms [...] 13:08:20 by: Radha Su DO, RVT, NATANAEL, SAMANTA [facility] Interface, Anton [facility] - 03/16/2020 1:20 PM EDT Non-Invasive Vascular _ Patient: SHERRY [facility]azan [facility] Rec#: [id number] (Age): 1940(80y) Study Date: 03/16/2020 Room#: Type: Outpatient Sex: M _ Reading: Radha Su DO, RVT, NATANAEL, FSYVES Referring: Mohsen Sarabia MD, NATANAEL Plant Production Manager: Wagner Giron RVT, RDMS Procedure Info: [id number] Study Quality: _ Diagnosis: 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 _ Finding Grids Lower PVR Waveforms Right Left Ankle B B Transmet B _ Harper --------- B = Abnormal Toe PPG Waveforms Right Left 1st Digit B _ Harpre --------- B = Abnormal Doppler Waveforms Right [...] 13:08:20 by: Radha Su DO, INOCENCIO, NATANAEL, [facility] Patient Portal Messageon Patient Portal Message --- --- --- --- --- --- --- --- --- From: Hospital, Patient Summary Visit To: TRISTIN POWELL Sent: 11/30/19 01:31:27 AM EDT Subject: New Results Available A summary regarding your recent visit is available in the Documents section of your Health Record. Normal [facility] CBCon 11-29-2019 Erythrocyte distribution width (RBC) [Entitic vol] 14.3 % Normal 11.7-15.0 [facility] Hematocrit (Bld) [Volume fraction] 33.8 % Low 34.0-50.0 [facility] Hemoglobin (Bld) [Mass/Vol] 11.8 g/dL Normal 11.5-17.0 [facility] MCH (RBC) [Entitic mass] 31.4 Picograms Normal 27.0-34.0 [facility] MCHC (RBC) [Mass/Vol] 35.0 g/dL Normal 32.0-36.0 [facility] MCV (RBC) [Entitic vol] 89.8 fL Normal 80-98 [facility] Platelet mean volume (Bld) [Entitic vol] 8.7 fL Normal 7.5-11.2 [facility] Platelets (Bld) [#/Vol] 152 thou/mcL Normal 140-415 [facility] RBC (Bld) [#/Vol] 3.77 x(10)6/mcL Low 3.80-5.60 [facility] [place] WBC (Bld) [#/Vol] 10.2 thou/mcL Normal 4.0-10.5 [facility] OR Nursingon 11-29-2019 OR Nursing CO NA OR Nursing Rec ord Summary Primary Physician: Oscar DIAZ , Ramana Ontiveros Finalized Date/Time: 11/29/19 11:47:30 Pt. Name: TRISTIN POWELL /Sex: 1940 Male Med Rec #: [id number] Physician: Ramana Cason MD Financial #: [id number] Pt. Type: I Room/Bed: [address] [place] [address] Admit/Disch: 11/28/19 05:01:00 - Institution: [place] NA [...] Jenkins MD Role Performed Primary Surgeon Physician Donor Services Specialist Anesthesiologist Time In 11/28/19 06:30:00 11/28/19 06:55:00 11/28/19 06:30:00 Time Out 11/28/19 08:05:00 11/28/19 09:05:00 11/28/19 09:18:00 Procedure Fusion Cervical Post Fusion Cervical Post Fusion Cervical Post with with with Decompression(Cervical) Decompression(Cervical) Decompression(Cervical) Attendee Comment Relief Reason Last Modified By: Mary Kate Baptiste RN RN , Mary Kate Danielle RN 11/28/19 09:16:36 11/28/19 09:16:36 11/28/19 09:16:36 Entry 4 Entry 5 Entry 6 Case Attendee Emile LIGHT , Mary Kate Quintana RN , Marichuy Montesinos Role Performed senior pl sql developer senior pl sql developer First Scrub Time In 11/28/19 06:30:00 11/28/19 06:30:00 11/28/19 06:30:00 Time Out 11/28/19 09:18:00 11/28/19 09:18:00 11/28/19 08:40:00 Procedure Fusion Cervical Post Fusion Cervical Post Fusion Cervical Post with with with Decompression(Cervical) Decompression(Cervical) Decompression(Cervical) Attendee Comment orientation Relief Reason Last Modified By: Mack RN , Karen Baptiste RN , Mary Kate Baptiste RN , Mary Kate Arteaga N 11/29/19 11:45:51 11/28/19 09:16:36 11/28/19 09:16:36 Entry 7 Entry 8 Entry 9 Case Attendee Terri Benedict Benjamin D Case, Attendee Other Role Performed First Scrub Assistive Personnel Assistive Personnel Time In 11/28/19 06:30:00 11/28/19 06:30:00 11/28/19 06:30:00 Time Out 11/28/19 09:18:00 11/28/19 09:18:00 11/28/19 09:18:00 Procedure Fusion Cervical Post Fusion Cervical Post Fusion Cervical Post with with with Decompression(Cervical) Decompression(Cervical) Decompression(Cervical) Attendee Comment orientation jagruti vest Relief Reason Last Modified By: Emile RN , Mary Kate Baptiste RN , Mary Kate Baptiste RN , Mary Kate Arteaga 11/28/19 09:16:36 11/28/19 09:16:36 11/28/19 09:16:36 Entry 10 Entry 11 Entry 12 Case Attendee Case, Attendee Other Yang Zuniga MD , Ramana Ontiveros Role Performed Dobby Looms Pegger Veneer Layer Surgeon Time In 11/28/19 07:02:00 11/28/19 07:20:00 11/28/19 08:13:00 Time Out 11/28/19 09:18:00 11/28/19 08:16:00 11/28/19 08:32:00 Procedure Fusion Cervical Post Fusion Cervical Post Fusion Cervical Post with with with Decompression(Cervical) Decompression(Cervical) Decompression(Cervical) Attendee Comment pat hurto Relief Reason Last Modified By: Emile RN , Mary Kate Baptiste RN , Mary Kate Danielle RN 11/28/19 09:16:36 11/28/19 09:16:36 11/28/19 09:16:36 CO NA OR General Case Appraiser Timber 1 OR CO NA 01 ASA Class [...] Cervical Procedure Wound Clean Class Primary Surgeon Ramana Cason MD Surgical Service Orthopedic Surgery Anesthesia Type General Procedure Performed C3-C6 POSTERIOR CERVICAL LAMINECTOMY, FUSION AND INSTRUMENTATION Start 11/28/19 07:05:00 Stop 11/28/19 09:05:00 Last Modified By: Mary Kate Baptiste RN 11/28/19 09:06:27 CO NA OR Catheters, Drains, and Tubes Entry 1 Device Type CO DRAIN ROUND SILICONE Present on Arrival? No NATALIE 15FR [id number] Location POSTERIOR NECK Inserted By Ben Saha [...] Yes Safety Strap Thighs Location Positioned By Jeo Sims, Positioning Comment PATIENT POSITIONED Mary Kate Baptiste RN, PRONE ON OR BED WITH Ramana Cason MD, HARRIET FRAME; ARMS Ben Saha TUCKED AT SIDE WITH Lilian Huerta RN, Jimmy D BEDSHEET AND TAPE; ARMS PROTECTED WITH FOAM; PRONEVIEW HEADREST WITH FOAM; KNEES PADDED WITH FOAM AND LEGS SLIGHTLY FLEXED WITH PILLOWS UNDER LOWER LEGS TO ELEVATE TOES Procedure Fusion Cervical Post with Decompression(Cervical) Last Modified By: Mary Kate Baptiste RN [...] Cason MD Procedure Fusion Cervical Post with Decompression(Cervical) Last Modified By: Mary Kate Baptiste RN [...] Cervical Post Fusion Cervical Post with with Decompression(Cervical) Decompression(Cervical) Pre-Induction Patient confirms Patient confirms Additional identity, [...] UNITS 1 VIAL POWDER VANCOCIN POWDER TOPICAL [id number] Medication Dosage 1 sheet 5000 UNITS 1 g Route of TOPICAL TOPICAL TOPICAL Administration Meds Administered By Oscar DIAZ , Ramana Cason MD , Ramana BROWER , Ben Huerta Medication Comment Last Modified By: Mack LIGHT , Karen Giron RN , Mary Kate Strickland RN 11/29/19 11:46:31 N 11/29/19 11:46:31 11/28/19 07:19:27 [...] Post Fusion Cervical Post with with with Decompression(Cervical) Decompression(Cervical) Decompression(Cervical) Implant/Explant Implant Implant Implant Wasted Reason Provided by Surgeon Implant Identification Description Lineum plugs [id number] Lineum screw 3.5x14mm BETHEL LINEUM PRE-CURVED Type1 Occipital [id number] CERVICAL [id number] Lead [employer] HÉCTOR BIOMET SPINE HÉCTOR BIOMET SPINE BIOMET SPINE and B[employer] HEAL[employer] Catalog Number [id number] Lot Number na na na Serial Number [...] Cervical Post Fusion Cervical Post with with Decompression(Cervical) Decompression(Cervical) Last Modified By: Mary Kate Baptiste RN, [...] WITH PA Procedure Fusion Cervical Post with Decompression(Cervical) Last Modified By: Mary Kate Baptiste RN [...] 09:16 Karen Giron RN 11/29/19 11:47 Normal [facility] Patient Summaryon 11-29-2019 Patient Summary PATIENT DISCHARGE INSTRUCTIONS If you are having an emergency and are not able to reach your physician, CALL 911 or go to the nearest emergency room and take this document with you. [facility] 11/29/19 11:09 [address] [place]. [address] PATIENT INFORMATION Name: TRISTIN POWELL Address: [address] [address] Age: 79 Years Phone: [phone] : 1940 12:00 MRN: [id number] Sex: Male Race: White Ethnicity: Not Hispan/Lat Admitted From: Clinic or [facility] Medical Service: Orthopedic Surgery Nurse Unit/Bed: (CO) 2NWILLIAMS 0208-01 Admit Date: 11/28/2019 05:01 PCP: Flash Lovelace MD PHYSICIANS INVOLVED WITH CARE -- Attending Physicians: Ramana Cason MD - Orthopaedic Surg Admitting Physician: Ramana Cason MD - Orthopaedic Surg Primary Care Physician:Flash Lovelace MD,[facility], - Consults: IWONA Wren - Internal Medicine FOLLOW-UP APPOINTMENTS: Provider: Specialty: Address: Date: Ramana Cason MD Orthopaedic Surg [address] [place], [place] [id number] (1) Two Weeks Comment: Call for an Appointment Provider: Specialty: Address: Date: Flash Lovelace MD [place] [address] (1) Follow-up as needed ALLERGIES: No Known [...] doses are changed, or new medications (including fcns-dvc-ejmhkvk products) are added. Ask your doctor if [...] Medications Freetext Medication NEW PRESCRIPTIONS: -OXYCODONE. Comment __ UPDATED MEDICATIONS None UNCHANGED MEDICATIONS Other Medications aspirin 81 Milligram once a day. Comment __ atorvastatin (atorvastatin 40 mg oral tablet) 1 Tab(s) By Mouth once a day. Comment __ gabapentin (gabapentin 100 mg oral capsule) 1 Capsule By Mouth Twice a day. Comment __ losartan (losartan 25 mg oral tablet) 1 Tab(s) By Mouth once a day. Comment __ metoprolol (metoprolol tartrate 50 mg oral tablet) 1 Tab(s) By Mouth Twice a day. Comment __ omeprazole (PriLOSEC 20 mg oral enteric coated capsule) 1 Capsule By Mouth once a day. prn. Comment __ rivaroxaban (Xarelto 2.5 mg oral tablet) 1 Tab(s) By Mouth Twice a day. Comment __ STOP TAKING THESE MEDICATIONS None DO NOT TAKE UNTIL YOU TALK TO YOUR DOCTOR None NON-MEDICATION PRESCRIPTION SCHEDULING PHONE NUMBER: SELECTED LAB RESULTS _ Lab Result Order Date Hemoglobin 11.8 gm/dL [...] suicide hotline, anytime day or night, at 3-578-820-PKHK. Important information about accessing your health information through the [facility] patient portal If you initiated the self-registration process for [facility] during your stay, please check your personal email for an invitation to enroll in [facility] and complete the steps outlined in the email. If you would prefer to enroll while in the hospital, ask a member of your care team. We would be happy to assist you. If you have already enrolled in [facility], go to [email or web address] to login and access your health information. Thank you for choosing [facility]. PATIENT EDUCATION Incentive Spirometer An incentive spirometer [...] 12/25/2007 Document Revised: 09/04/2015 Document Reviewed: 03/23/2015 [employer] Interactive Patient Education ?2016 [employer] Venous Thromboembolism, Prevention A venous thromboembolism [...] 08/02/2010 Document Revised: 05/08/2013 Document Reviewed: 12/09/2015 [employer] Interactive Patient Education ?2016 [employer] Preventing Constipation After Surgery Constipation is [...] a bowel movement. ???Having hard, dry, or glwizx-vwpb-footct stools. ???Feeling full or bloated. ???Having pain in the lower abdomen. ???Not feeling relief after having a bowel movement. HOME CARE INSTRUCTIONS Diet ???Eat foods that have a lot of fiber. These include fruits, vegetables, whole grains, and beans. Limit foods high in fat and processed sugars. These include latvian fries, hamburgers, cookies, and candy. ???Take a [...] softener, laxative, or fiber supplement. ???Only take gyfj-vha-uuqaayw or prescription medicines as directed by your [...] 12/09/2013 Document Revised: 09/04/2015 Document Reviewed: 12/09/2013 [employer] Interactive Patient Education ?2016 [employer]. Pain Medicine Instructions HOW CAN PAIN MEDICINE [...] liver damage. Acetaminophen is found in many fcjb-iii-mktzlqk (OTC) and prescription medicines. If you are [...] Date/Time Responsible Party Date/Time Relationship to Patient ____ Clinician Signature Date/Time Normal [facility] Troponin Ion 11-29-2019 Troponin I.cardiac [Mass/Vol] 0.03 ng/mL Normal <0.06 [facility] Magnesium Levelon 11-28-2019 Magnesium [Mass/Vol] 2.3 mg/dL Normal 1.8-2.4 [facility] PACU I Nursingon 11-28-2019 PACU I Nursing CO NA PACU I Nursing Record Summary Primary Physician: Ramana Cason MD Finalized Date/Time: 11/28/19 10:38:07 Pt. Name: TRISTIN POWELL D.O.B./Sex: 1940 Male Med Rec #: [id number] Physician: Ramana Cason MD Financial #: [id number] Pt. Type: I Room/Bed: / Admit/Disch: 11/28/19 [...] By: Richie Huerta RN 11/28/19 10:38 Normal [facility] PreOp Nursingon 11-28-2019 PreOp Nursing CO NA PreOp Nursing Record Summary Primary Physician: Ramana Cason MD Finalized Date/Time: 11/28/19 07:11:59 Pt. Name: TRISTIN POWELL/Sex: 1940 Male Med Rec #: [id number] Physician: Ramana Cason MD Financial #: [id number] Pt. Type: I Room/Bed: / Admit/Disch: 11/28/19 05:01:00 - Institution: [place] NA OR PreOp Case Times Entry 1 PreOp Case Times In Room Time 11/28/19 05:12:00 Out Room Time 11/28/19 06:29:00 Last Modified By: Mary Kate Baptiste RN 11/28/19 07:11:57 CO NA OR PreOp Case Attendees Entry 1 Entry 2 Case Attendee Francy Victoria RN, RN , Izable Role Performed RN RN Last Modified By: Maggy Velarde RN, Lauren 11/28/19 05:17:12 11/28/19 05:37:49 Finalized By: Mary Kate Baptiste RN Document Signatures Signed By: Mary Kate Baptiste RN 11/28/19 07:11 Normal [facility] Troponin Ion 11-28-2019 Troponin I.cardiac [Mass/Vol] ng/mL Normal <0.06 [facility] Troponin I.cardiac [Mass/Vol] ng/mL Normal <0.06 [facility] Basic Metabolic Panelon 10-26 Calcium [Mass/Vol] 9.6 mg/dL Normal 8.5-10.6 [facility] Chloride [Moles/Vol] 105 mmol/L Normal 98-107 [facility] CO2 [Moles/Vol] 28 mmol/L Normal 21-32 [facility] Creatinine [Mass/Vol] 1.12 mg/dL Normal 0.70-1.30 [facility] Glucose [Mass/Vol] 91 mg/dL Normal 70-99 [facility] Potassium [Moles/Vol] 4.9 mmol/L Normal 3.5-5.1 [facility] Sodium [Moles/Vol] 141 mmol/L Normal 136-145 [facility] Urea nitrogen (BldV) [Mass/Vol] 23 mg/dL High 7.0-18.0 [facility] Urea nitrogen/Creatinine [Mass ratio] 21 mg/mg Normal [facility] CBC with Differentialon 10-26 Basophils (Bld) [#/Vol] 0.0 thou/mcL Normal 0.0-0.2 [facility] Basophils/100 WBC (Bld) 0.9 % Normal 0-3 [facility] Differential cell count method Nom (Bld) AUTOMATED DIFFERENTIAL Normal [facility] Eosinophils (Bld) [#/Vol] 0.1 thou/mcL Normal 0.0-0.4 [facility] Eosinophils/100 WBC (Bld) 2.1 % Normal 0-7 [facility] Lymphocytes (Bld) [#/Vol] 0.8 thou/mcL Normal 0.7-4.5 [facility] Lymphocytes/100 WBC (Bld) 19.7 % Normal 14-46 [facility] Monocytes (Bld) [#/Vol] 0.7 thou/mcL Normal 0.1-1.0 [facility] Monocytes/100 WBC (Bld) 16.0 % High 4-13 [facility] Neutrophils (Bld) [#/Vol] 2.5 thou/mcL Normal 1.5-7.8 [facility] Neutrophils/100 WBC (Bld) 61.3 % Normal 40-74 [facility] Erythrocyte distribution width (RBC) [Entitic vol] 14.2 % Normal 11.7-15.0 [facility] Hematocrit (Bld) [Volume fraction] 39.8 % Normal 34.0-50.0 [facility] Hemoglobin (Bld) [Mass/Vol] 13.8 g/dL Normal 11.5-17.0 [facility] MCH (RBC) [Entitic mass] 31.7 Picograms Normal 27.0-34.0 [facility] MCHC (RBC) [Mass/Vol] 34.6 g/dL Normal 32.0-36.0 [facility] MCV (RBC) [Entitic vol] 91.6 fL Normal 80-98 [facility] Platelet mean volume (Bld) [Entitic vol] 8.2 fL Normal 7.5-11.2 [facility] Platelets (Bld) [#/Vol] 191 thou/mcL Normal 140-415 [facility] RBC (Bld) [#/Vol] 4.34 x(10)6/mcL Normal 3.80-5.60 [facility] [place] WBC (Bld) [#/Vol] 4.1 thou/mcL Normal 4.0-10.5 [facility] Comment on above: Result Comment: ANNETTA DORAN BY SLIDE REVIEW Partial Thromboplastin Time (aPTT)on 11-12-2019 aPTT Coag (PPP) [Time] 28.5 Sec Normal 23.2-34.6 [facility] Prothrombin Timeon 0 INR Coag (Bld) [Relative time] 1.1 {INR} Normal [facility] Comment on above: Result Comment: MAGALYS MUNOZ THE INDUCTION PHASE OF ORAL ANTICOAGULATION, THE INR MAY NOT REFLECT THE ANTICOAGULANT STATUS OF THE PATIENT. THERAPEUTIC RANGES FOR INR'S ARE: MOST CLINICAL SITUATIONS: INR 2.0-3.0 MECHANICAL PROSTHETIC VALVES: INR 2.5-3.5 CRITICAL: INR 5.0 PT Coag (PPP) [Time] 14.5 Sec Normal 11.9-14.6 [facility] CT Angiogram Abdominal Aorta With Lower Extremityon 10-21-2019 Patent left femoral to tibioperoneal trunk bypass graft which bypasses an occluded alatna distal superficial femoral artery. 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 Peripheral arterial disease in the right lower extremity as detailed above, primarily infrapopliteal with single-vessel runoff to the right foot via the peroneal artery. Emphysema Coronary artery disease. Mild to moderate hiatal hernia. Workstation ID: [id number] [facility] EXAMINATION: CTA (Angiogram) OF THE [...] artery:Single renal artery is present. There is hyzd-nq-xeezoqcn, 50-70%, narrowing of the ostium of the [...] femoral artery: There is occlusion of the alatna superficial femoral artery in its distal aspect [...] There also degenerative changes in the spine. [facility], Rad In Fu ji Speechq - 10/21/2019 [...] artery:Single renal artery is present. There is bxgh-cs-vrwlcgoi, 50-70%, narrowing of the ostium of the [...] femoral artery: There is occlusion of the alatna superficial femoral artery in its distal aspect [...] trunk bypass graft which bypasses an occluded alatna distal superficial femoral artery. Infrapopliteal peripheral arterial [...] to moderate hiatal hernia. Workstation ID: [id number] [facility] POC Creatinineon 10-21-2019 Creatinine [Mass/Vol] 1.1 mg/dL 0.8 - 1.3 mg/dL [facility] Interpretation and review of laboratory results Normal [facility] Ultrasound ankle / brachial indices extremity completeon 10-09-2019 Non-Invasive Vascula r _ Patient: SHERRY Bazan [facility] Rec#: [id number] (Age): 1940(79y) Study Date: 10/09/2019 Room#: Type: Outpatient Sex: M _ Reading: Nemo Conner MD, PhD, RVT Referring: Mohsen Sarabia MD, RPVI Plant Production Manager: Andre Madrid RDCS/RVT Procedure Info: [id number] Study Quality: Lower Arterial Doppler: adequate _ Diagnosis: I73.9 Peripheral vascular disease, unspecified Lower Arterial Doppler _ Conclusions Right ankle brachial index indicates mild [...] in the 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 _ The procedure was explained to the patient. [...] 15:10:46 by: Nemo Conner MD, PhD, RVT [facility], Rad In Heartlab [facility] - 10/09/2019 4:01 PM EST Non-Invasive Vascular _ Patient: SHERRY Bazan [facility] Rec#: [id number] (Age): 1940(79y) Study Date: 10/09/2019 Room#: Type: Outpatient Sex: M _ Reading: Nemo Conner MD, PhD, RVT Referring: Mohsen Sarabia MD, RPVI Plant Production Manager: Andre Madrid RDCS/RVT Procedure Info: [id number] Study Quality: Lower Arterial Doppler: adequate _ Diagnosis: I73.9 Peripheral vascular disease, unspecified Lower Arterial Doppler _ Conclusions Right ankle brachial index indicates mild [...] in the 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 _ The procedure was explained to the patient. [...] 15:10:46 by: Nemo Conner MD, PhD, RVT [facility] Ultrasound duplex arterial l eg lefton 10-09-2019 Non-Invasive Vascula r _ Patient: SHERRY Bazan [facility] Rec#: [id number] (Age): 1940(79y) Study Date: 10/09/2019 Room#: Type: Outpatient Sex: M _ Reading: Nemo Conner MD, PhD, RVT Referring: ALENA Plant Production Manager: Andre Madrid RDCS/RVT Procedure Info: [id number] Study Quality: Graft Duplex: adequate _ Diagnosis: I73.9 Peripheral vascular disease, unspecified Graft Duplex _ Conclusions Left: Patent femoral to peroneal artery bypass graft with no evidence of hemodynamically significant stenosis. _ The procedure was explained to the patient. The patient voiced understanding. Measurements Left PSV Name Value Units EIA 151 cm/sec ODD JOB WORKER 115 cm/sec Left Graft #1 PSV Name Value Units Inflow Artery 76.8 cm/sec Prox Anastomosis 102 cm/sec Prox Graft 80.7 cm/sec Mid Graft 60.3 cm/sec Dist Graft 69.6 cm/sec Dist Anastomosis 44.1 cm/sec Outflow Artery 72.1 cm/sec History CAD. Hypertension. History Comments:Left transmetatarsal amputation. Electronically signed at 10/09/2019 15:14:54 by: Nemo Conner MD, PhD, T [facility] Interface, Rad In Heartlab [facility] - 10/09/2019 4:01 PM EST Non-Invasive Vascular _ Patient: SHERRY Bazan Med Rec#: [id number] (Age): 1940(79y) Study Date: 10/09/2019 Room#: Type: Outpatient Sex: M _ Reading: Nemo Conner MD, PhD, RVT Referring: ALENA Plant Production Manager: Andre Madrid RDCS/RVT Procedure Info: [id number] Study Quality: Graft Duplex: adequate _ Diagnosis: I73.9 Peripheral vascular disease, unspecified Graft Duplex _ Conclusions Left: Patent femoral to peroneal artery bypass graft with no evidence of hemodynamically significant stenosis. _ The procedure was explained to the patient. The patient voiced understanding. Measurements Left PSV Name Value Units EIA 151 cm/sec ODD JOB WORKER 115 cm/sec Left Graft #1 PSV Name Value Units Inflow Artery 76.8 cm/sec Prox Anastomosis 102 cm/sec Prox Graft 80.7 cm/sec Mid Graft 60.3 cm/sec Dist Graft 69.6 cm/sec Dist Anastomosis 44.1 cm/sec Outflow Artery 72.1 cm/sec History CAD. Hypertension. History Comments:Left transmetatarsal amputation. Electronically signed at 10/09/2019 15:14:54 by: Nemo Conner MD, PhD, RVT [facility] US DOPPLER CAROTIDon 22-2 019 Non-Invasive Vascula r _ Patient: SHERRY Joens Rec#: [id number] (Age): 1940(79y) Study Date: 03/18/2019 Room#: Type: Outpatient Sex: M _ Reading: Radha Su DO, RVT, NATANAEL, FSVM Referring: Mohsen Sarabia MD, NATANAEL Plant Production Manager: Wagner Giron RVT, RDMS Procedure Info: [id number]... Study Quality: _ Diagnosis: I65.23 Occlusion and stenosis of bilateral carotid arteries Carotid Duplex _ Conclusions There was a 40-59% stenosis in the right internal carotid artery. The right vertebral artery was patent with antegrade flow. There was a 20-39% stenosis in the left internal carotid artery. The left vertebral artery was patent with antegrade flow. _ Findings The left common carotid artery contained [...] 03/18/2019 10:28:46 by: Radha Su DO, INOCENCIO, RPLUIZA, FSVM [facility], Rad In Heartlab [facility] - 03/18/2019 10:30 AM EDT Non-Invasive Vascular _ Patient: SHERRY Jones Rec#: [id number] (Age): 1940(79y) Study Date: 03/18/2019 Room#: Type: Outpatient Sex: M _ Reading: Radha Su DO, RVT, NATANAEL, FSVM Referring: Mohsen Sarabia MD, NATANAEL Plant Production Manager: Wagner Giron RVT, RD Procedure Info: [id number]... Study Quality: _ Diagnosis: I65.23 Occlusion and stenosis of bilateral carotid arteries Carotid Duplex _ Conclusions There was a 40-59% stenosis in the right internal carotid artery. The right vertebral artery was patent with antegrade flow. There was a 20-39% stenosis in the left internal carotid artery. The left vertebral artery was patent with antegrade flow. _ Findings The left common carotid artery contained [...] by: Radha Su DO, RVT, NATANAEL, FSYVES [facility] Ultrasound ankle / brachial indices extremity completeon 03-13-2019 Non-Invasive Vascula r _ Patient: SHERRY Bazan [facility] Rec#: [id number] (Age): 1940(79y) Study Date: 03/13/2019 Room#: Type: Outpatient Sex: M _ Reading: Meir Aguillon MD, NATANAEL Reading: MOJOSUE TURK Referring: Mohsen Sarabia MD, NATANAEL Plant Production Manager: Tiffany Millan RDCS, RVT Procedure Info: [id number] Study Quality: Lower Arterial Doppler: adequate _ Diagnosis: 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 _ The procedure was explained to the patient. 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 _ The procedure was explained to the patient. [...] at 03/13/2019 12:54:02 by: Meir Aguillon MD, [facility] FASTINGon 10-31-2018 Anion gap molar conc 8 mmol/L Normal 8-16 [facility] Calcium mass conc 9.6 mg/dL Normal 8.4-10.2 [facility] Chloride molar conc 104 mmol/L Normal 98-107 [facility] Comment on above: Result Comment: Plea se note: Triglyceride levels of 600mg/dL or higher may positively bias chloride results by approximately 2.1 mmol CO2 molar conc 28 mmol/L Normal 22-30 [facility] Creatinine mass conc 0.8 mg/dL Normal 0.7-1.2 [facility] EST. GFR, >60 Normal [facility] EST. GFR,Non >60 Normal [facility] GFR/1.73 sq M predicted among non-blacks MDRD vol rate/area (S/P/Bld) Average GFR for 70+ years old = 75. Normal [facility] Comment on above: Result Comment: [employer] Portal Consultant darnell Kidney disease, GFR = <60. Kidney failure, GFR = <15. The GFR estimate is not adjusted for extreme body surface area or acute process, nor has it been validated for women or ethnic groups other than and . Glucose mass conc 95 mg/dL Normal 70-100 [facility] Comment on above: Result Comment: NORMAL <100 mg/dL PREDIABETES 101-126 mg/dL DIABETES 126 mg/dL or higher Potassium molar conc 4.2 mmol/L Normal 3.5-5.1 [facility] Sodium molar conc 140 mmol/L Normal 137-145 [facility] Urea nitrogen mass conc 10 mg/dL Normal 7-20 [facility] CBCon 10-31-2018 ABSOLUTE BAS 0.[address] [facility] ABSOLUTE EOS 0.[address] [facility] ABSOLUTE NEUTROPHIL COUNT 4.1 x10 Normal 1.0-7.0 [facility] Basophils/100 WBC (Bld) 0.5 % Normal 0.0-2.0 [facility] DTYPE AUTO DIFF Normal [facility] Eosinophils/100 WBC (Bld) 1.1 % Normal 0.0-11.0 [facility] Lymphocytes #/vol (Bld) 1.10 X10 Normal [facility] Lymphocytes/100 WBC (Bld) 18.3 % Low 20.0-55.0 [facility] Monocytes #/vol (Bld) 0.5 X10 Normal [facility] Monocytes/100 WBC (Bld) 9.2 % Normal 0.0-10.0 [facility] Neutrophils/100 WBC (Bld) 70.9 % Normal 37.0-75.0 [facility] Erythrocyte distribution width Ratio (RBC) 16.0 % High 11.5-14.5 [facility] Hematocrit Volume Fraction (Bld) 33.3 % Low 42.0-52.0 [facility] Hemoglobin mass conc (Bld) 11.4 g/dL Low 14.0-18.0 [facility] MCH Entitic mass (RBC) 30.8 pg Normal 26.0-35.0 [facility] MCHC mass conc (RBC) 34.2 g/dL Normal 27.0-37.0 [facility] MCV Entitic volume (RBC) 90.0 fL Normal 80.0-100.0 [facility] Platelet mean volume Entitic volume (Bld) 7.6 fL Normal 7.4-11.0 [facility] Platelets #/vol (Bld) 271 /cmm Normal 130.0-400.0 [facility] RBC #/vol (Bld) 3.69 /cmm Low 4.0-6.1 [facility] WBC #/vol (Bld) 5.8 /cmm Normal 3.6-11.0 [facility] ISTAT TROPONIN Ion 9 Troponin I.cardiac mass conc 0.02 ng/mL Normal 0-0.08 [facility] Troponin I.cardiac mass conc 0.03 ng/mL Normal 0-0.08 [facility] US Doppler ankle/brachial in dexon 10-31-2018 Amended Report Non-Invasive Vascular _ Patient: SHERRY MENDOZA [facility] Rec#: [id number] (Age): 1940(78y) Study Date: 10/31/2018 Room#: Type: Outpatient Sex: M _ Reading: Ben Hahn MD, JEOVANYVI Reading: Campos Guerra M.D. Referring: Mohsen Sarabia MD, RPLUIZA Plant Production Manager: Sussy Hardin RVT Procedure Info: [id number]... Study Quality: Lower Arterial Doppler: limited Study Limitations: Lower Arterial Doppler: The study was limited due to poor access because of contractures. _ Diagnosis: I73.9 Peripheral vascular disease, unspecified Lower Arterial Doppler _ Conclusions Right ankle brachial index indicates mild peripheral artery disease. Toe pressure is 100 mmHg. Left ankle brachial index is normal. 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 Mild small vessel disease noted at the transmetatarsal level in the right foot. Toe brachial index is abnormal. Unable to evaluate small vessels in the 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 _ Finding Grids Lower PVR Waveforms Right Left [...] 10/31/2018 12:01:15 by: Ben Hahn MD, RPVI [facility] Interface, Rad In Heartlab [facility] - 10/31/2018 12:05 PM EST Amended Report Non-Invasive Vascular _ Patient: SHERRY Bazan [facility] Rec#: [id number] (Age): 1940(78y) Study Date: 10/31/2018 Room#: Type: Outpatient Sex: M _ Reading: Ben Hahn MD, RPVI Reading: Campos Guerra M.D. Referring: Mohsen Sarabia MD, RPVI Plant Production Manager: Sussy Hardin RVT Procedure Info: [id number]... Study Quality: Lower Arterial Doppler: limited Study Limitations: Lower Arterial Doppler: The study was limited due to poor access because of contractures. _ Diagnosis: I73.9 Peripheral vascular disease, unspecified Lower Arterial Doppler _ Conclusions Right ankle brachial index indicates mild peripheral artery disease. Toe pressure is 100 mmHg. Left ankle brachial index is normal. 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 Mild small vessel disease noted at the transmetatarsal level in the right foot. Toe brachial index is abnormal. Unable to evaluate small vessels in the 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 _ Finding Grids Lower PVR Waveforms Right Left [...] at 10/31/2018 12:01:15 by: Ben Hahn MD, VI [facility] Ultrasound duplex arterial l eg lefton 10-31-2018 Non-Invasive Vascula r _ Patient: SHERRY Bazan [facility] Rec#: [id number] (Age): 1940(78y) Study Date: 10/31/2018 Room#: Type: Outpatient Sex: M _ Reading: Campos Guerra M.D. Referring: ALENA Plant Production Manager: Sussy Hardin RVT Procedure Info: [id number] Study Quality: Graft Duplex: adequate _ Diagnosis: I73.9 Peripheral vascular disease, unspecified Lower Arterial Duplex Graft Duplex _ Conclusions Patent left femoral-peroneal bypass graft. Focal elevation of flow velocity at distal graft ( doubling ) which could be due to retained autologous vein graft valve. Outflow artery (peroneal a) is patent with less than 50% stenosis. External iliac and common femoral arteries are patent with less than 50% stenosis. 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 _ Findings Left Graft #1 was an autologous vein graft, with proximal anastomosis at the ODD JOB WORKER and distal anastomosis at the peroneal artery. Measurements Left PSV Name Value Units EIA 128 cm/sec ODD JOB WORKER 111 cm/sec LAUREL - prox 0 cm/sec LAUREL - mid 0 cm/sec LAUREL - dist 0 cm/sec SNATH HANDLE ASSEMBLER - mid 0 cm/sec SNATH HANDLE ASSEMBLER - dist 0 cm/sec Peroneal - mid [...] at 10/31/2018 12:07:19 by: Campos Guerra M.D. [facility], Rad In [facility] - 10/31/2018 12:09 PM EST Non-Invasive Vascular _ Patient: SHERRY Jones Rec#: [id number] (Age): 1940(78y) Study Date: 10/31/2018 Room#: Type: Outpatient Sex: M _ Reading: Campos Guerra M.D. Referring: CORNELLMAYWOODYENNIFER Plant Production Manager: Sussy Hardin RVT Procedure Info: [id number] Study Quality: Graft Duplex: adequate _ Diagnosis: I73.9 Peripheral vascular disease, unspecified Lower Arterial Duplex Graft Duplex _ Conclusions Patent left femoral-peroneal bypass graft. Focal elevation of flow velocity at distal graft ( doubling ) which could be due to retained autologous vein graft valve. Outflow artery (peroneal a) is patent with less than 50% stenosis. External iliac and common femoral arteries are patent with less than 50% stenosis. 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 _ Findings Left Graft #1 was an autologous vein graft, with proximal anastomosis at the ODD JOB WORKER and distal anastomosis at the peroneal artery. Measurements Left PSV Name Value Units EIA 128 cm/sec ODD JOB WORKER 111 cm/sec LAUREL - prox 0 cm/sec LAUREL - mid 0 cm/sec LAUREL - dist 0 cm/sec SNATH HANDLE ASSEMBLER - mid 0 cm/sec SNATH HANDLE ASSEMBLER - dist 0 cm/sec Peroneal - mid [...] at 10/31/2018 12:07:19 by: Campos Guerra M.D. [facility] XR CHEST PA 1 VIEWon [...] disease. 3. Bibasilar atelectasis and/or scarring. Normal [facility] Creatinine, Serumon 10-12-19 19 Creatinine mass conc 0.79 mg/dL Low 0.8 - 1 .3 mg/dL [facility] GFR/1.73 sq M predicted among non-blacks MDRD vol rate/area (S/P/Bld) The eGFR should be used for monitoring renal function only and not for medication dosing. [facility] GFR/1.73 sq M.predicted CKD-EPI vol rate/area (S/P/Bld) 85 >=60 mL/min/1.73 m2 [facility] Interpretation and review of laboratory results Abnormal [facility] TISSUE EXAMon 10-12-2018 Case Report Surgical Pathology Report Case: [id number] Authorizing Provider: Ben Jensen, Collected: 10/10/2018 01:05 PM Ordering Location: [facility] [place] Received: 10/11/2018 08:07 AM Endoscopy Pathologist: Carson Carroll MD Specimens: A) - Duodenum, Second Portion B) - Gastroesophageal Junction [facility] Clinical information k1khvAYhGPIqiRQeRiV yMDA xUROkn1npRCRohQJdNuSzLy NcZnRuYmpcdWMxXGRlZmYwe 2ddy914mGJfn3mgQEClJlA4 tDBcKLHtwWJhM359r8sgf8j gjbQaiNI3LTSeAYN3YYqvby WmvlW5JVohbUChBjP0FAbnw lJlQYjizvMprbYqNfp6ZAId J751CHQ6qJejl6seSMF7DAQ pLVMtVqRyKb3dcNCnM288WG ZlKPESLAJcfCr3ODUmvrNfc eHhvWUUk219E544f4zzUGNu zcEjwPdSynvmz4yzK432WFX hcGVydzEyMjQwXHBhcGVyaD P3VLFgTB0uutdyXrQcQZ3gu xsxSvWuKW2gtqd8OJD0ZJvs XJNtXwB8GEVbyJPfYTXbeCq wLRbzz240VPU5SBrmz8rgu9 ufiIYmTgq7CIVvFvJdKgmxZ Jjic4Gjj5qeISZsxv8oGUB9 yFEviIbli2B1zWXpARYysNC eetDtIRWtUuM6TBwhMI7sda 66RFStKXN5pu4ndTHkvIjlp gExwIIrYXlgY5HdVJMld947 DUXsI0UzIXCcq9U7dxBqHtU bDDHbsZV9shM8JCYfLAf8gA RsvrF0dyRuhLEvL7wnuO18E tUhxVHzL4RltA55UkQhcBLk R9ZpmI4jGPGxBZ0cxxulj3x oVSQ3ZGfhDPVgBYK1CoByOQ Fqt8JrigbtIWKoe9PdL1Xsw KuxB02sqFocE49qVMNkfGyl yQ6ivYmgxK4yJvDkSzAgNFi xbFxwbGFpblxmMFxmczIwXG mwmjozBUItOVgjC9dqCaIrZ MUydSylGJgha3GuSFPxEVEk AaHwG1noMzxnKDTjZEweWOI svLDcLCWqZY6yA47xxTWxFl luZGluZyhzKTogIEEtYmlvc GO5UgWLYWAjr7OuyN8uOXXd cn0= [facility] Pathology report final diagnosis Narrative h8tsaZNvNGTnqWEgYtOpUAT kOEOfh9poQOUocTGuWwNjOz NcZnRuYmpcdWMxXGRlZmYwe 2yoa561nXMts2xdRQQcJoI3 bILeTIWpuZOvU525CMQsOPz xl4bki0YeBGObyDLbx7M8NG UZbnjjyVk8aLyrI41hv1O8B ebkM6caRRSqFMRoO9WzNR5l PWJsOxq9PUE8ISO5VRPuCJE uB9NhMY6gSJQdfSYzYHs7z6 uodUwkYVBuDYE3s0ieVQpvn sJuPV0ops6ccUr0r7nbojDy MHPaDLCxfDTSESWoR4UvtXo gXk0wiZi4pPzdZkysQKQ2Zu b5OT5wqw16ecn8rFzsBWYgq xvgXcN8KRneECFhbxlkKDj8 MFxtYXJnbDcyMFxtYXJncjc cYBjbGFVvwIA7NQAecSMdI3 OqPHIwKOleSTCibgb3QxDfV i6niRMxbKNtri6eaj33HOK3 b9MujTweFJC3BWR5EpQaPs1 qaSFrXDBiVE8kYzEamUAlMB Wwjr53pCdqNFvcksGksZ0sD aDyEYJmoIVoEWTsUNEtY7pb KnJpxjRpL6weO6FrLQOlPOO vAWRjWfWianEeu6Jrk8KceJ FmsGq2n3gdTBGgWUWdaLsfi 4xnVLK4TRNqS6Y1bCKur3rl JVreWCUfhEA4zwzyWOhcNOB oueI3cmngABniUIPibAU8hp L8GAFeeZJoT5PdqZ7dYYCmT SfbRKUmcbs3AhVrRb6llSGy cNScv1BvpYMvBUchX55gx45 8PNClcoUzQ2kftCJfavurcE XkujvoBBqlzvU0ELRjzsLya 8RwVWQoSEY4VZrfWFxugQCc SMXskSncd7saB2QfbAOcJZN sYWluXGYxXGZzMjJcbGFuZz EwMzNcaGljaFxmMVxkYmNoX LQmMBiuR0lbWwUgU9ZhOQWl KaSaxHEoY9vzIaEWPhFljPo vpV1tJmGwNsNvSzrsOJ3aOS EeQ0qetXEeXXOtKAZqF4odI sVpaH3dnMwlWGuqWsPkLlUs AmqgUVX8i5OtfxYlJFHdBMM jazTozX4wjOvbfclieULpp0 UdgZIquP7zr6cqpDfolK3iG lDrLpUyOpxgGY0xANQcA6qv pCYoDCNpLRPeP0lgGtIjcG8 jaFxmMVxjZjJcZnMyMlxsdH JjaFxiIDpccGFyXHBhciAgI CAgIFxwbGFpblxmMVxmczIy FJhgggsuFZSuGFfdZ4paEsJ gXZLtsOylTZlvv6QhVWGjHV IeDphahiTpACNpGB3cxf7hi NFkiSJqBsAasVpePGEltb3p fUXeZYDuFOEyvGEyy4uwbCD pblxmMVxmczIyXGxhbmcxMD QqIGolB2wuXjBlJPCynXnoV Ryqb5NsIAJxZTFhXwpdzwRs TBe6suZgVZZpnEOuPQVbIFs uXGYxXGZzMjJcbGFuZzEwMz NcaGljaFxmMVxkYmNoXGYxX KlyW1coBpFbR8MbLGPrLrQc PydcWNVfaYzpeU7yUsUtTpI eNampZD1ySDKzV5exzJGeFO MaFPPmJ3mnTgTzoG6bxUccQ VxjZjJcZnMyMlxsdHJjaFxi QCOiixAELpCgzJisbO3xTmT zNbUjGdecST8iEKNrG2nmlX FuORMoBBIyT1cmXjKwnI5pi FxmMVxjZjJcZnMyMlxiIEVz i8RrDGn2bqriW9AjzDZiOSU cgZgzB2UheSWovY0cbXqjos cwrALne5RhcMYylP8qb0tuq HqtkT9kSyMeMgHhOyxcUM9k ZBKpW7wceJPmYBSvAVAsH7w eRcFuiP7bvYhfRLxsEwAlFv MyMlxsdHJjaFxiIDpccGxha Z8eYkAuBlNpJzvvAH0gENSk F6mgeDUaQCHxQCQoV3hpUmQ avA5seJtgFEgnXvFzCdLxSc xiXHBhclxwYXIgICAgICAgU 1H6KP7oY59bpV2fBDUbcLIb l5KxUSgvxUotmCDvuR0wjKO pjEEto6VxtAGysECyXFfdID IgICAgICAgTmVnYXRpdmUgZ q8rLTtqcXUxnLcbLTxbdKE1 YXBsYXNpYVxwYXJ9 [facility] Pathology report gross observation Narrative k6rksZMbVGTjqTZmNxTtPTC xWRYvn4ukIFFmwETkShByVq NcZnRuYmpcdWMxXGRlZmYwe 8vph890pNIdf1wlKKViVzV5 bRSgRUYnoGWbM163RVWwCIt cvm7yJA2hSBJfmXXow3Y0EB DCgqsluFn6w1gvGeMrNxY8j HVgTQxgB1tbpjVgoWPeRIOe HBj4cDnvUsMhFTRvi5Uczn0 bTHVnuMQpa5Q3TRBQjahbeY y1hNvvD11vl4F2GdkpE9ufT WQwXGdyZWVuMFxibHVlMCA7 TQCnDFZ7UOmnftChtuN3UPy fzTSyOfD3AFncpgLfUuWhEJ qaDJGwTmZ4UAIqpYBwAVPsR 320NOX3gWqyh7qiOWP5WNPs BAByTrRtPf4qrZAfN970OBI mIYZVMQPkcWq2ALFyurTzxf RhfNEXk437I561a6nlMNTfx gKexTjVjpxrs5svL105VTTe cGVydzEyMjQwXHBhcGVyaDE 9IWKgRK0hzoneFwPyMG2lmn pnBpTbLA7wiax0QYW9ODmpF SYpEsQ1LRWbwULmUNUmaNjg LGhrg883NNQ7DFano9nyk7i zjLAnKpi8YOBvDiYbRiznTC rbh5Yzy1anOTDoey8hLWI1q HYifOyql4Y7jZRgOKDhdNDy gkFrOPUgAeI5BBchNA7cDE4 kCRWbqV3lysdcFIIqEnLbtt dwCXBhhEgpdhRcOr4uiMikK UQ9YZfzJ4fwoX4gYiR4RYoe Q0civS4oDUy3KSakpYD9PNP roI0dKB9dspsjk7zpVhAdHH 9uxczbx5orGfZlUG6gqpg3f 5fsNCG6OIxqRSEpUhQ0ohQ3 DJSklZNvTAJcwSrxGJsyp20 0XQV8PAcbFmssHGvaNVWsnj NvbnRccGduZGVjXHBsYWluX HBsYWluXGYwXGZzMjBccGFy JBjvm0BlwoWtrBlhXIBqSOu 3sdSehxqmoHk5vDXlyLjyYF PtbVarkT4zQfYiAuDoSVgvi GFpblxmMVxmczIwXGxhbmcx ELYkTKluD5woKbRyECSmgMu jQLdvi0SjCPPwKXZeMYlqvh QlIYb8cfCgLPEmNJNcqBNiY EEuICBSZWNlaXZlZCBpbiBm a5QwRKuzpfZuTRAdzBVyIRY xhTgjrS1rYqMhOySnLUsgGF 3iMTVbI4iwoMGaWOFlKVGfU 5glMvLejK3jzZxlNiecOnNg YrUiCXdsxr10BNJ4m3zcbTI nZRecTgfloYXpzcY3VXvNXB JJFMgMQvBjAT6dNCdVHhbTI UdJTnwzODAwMXwwfERCTElO V2w8DFNGVG9dUYcnTea0DP7 8VLUkSUGrdOCnTTzjX716QX BsYWluXGYyXGZzMjBcbGFuZ zEwMzNcaGljaFxmMlxkYmNo FMPeEWwiL6lwPvZmJ9ZdSGF bDdScbSAffHGcdJQLf2zpWD FOqL9qwlIUKPSgKCwcONRkW GZzMjBcbGFuZzEwMzNcaGlj xPviXogmJdNlYYZdSRhwM7f fSzKiW6CiQZZkXzMogRWwaV EzdZoxIsuooBM8OCafQyuwt W7qxHMEYUZPYfyPLzrqrvJh YK5MLE3CVZ0OlVE8KASwhQQ 4UFJKDD6AkOeSKMIoRtKxHZ wyfHwwfXtcZmxkcnNsdCBcJ gPtsZ2rgAdsaI5pJkCqEbEm GPtpPA8wHLVqG6gbmUKyCHZ qWHCtB2dcRwTapU1rtUhdRK xjZjFcZnMyMFxsdHJjaCAiI KVcBSDvECJtI04hdRKtQPBo bQoxzS0qWnQaHySvTOUZOoV KvB1jGA47pHIpPTYgcuYjvJ 9ydGlvblxwbGFpblxmMVxmc vMcEUfydubkCLGgHKwzJ3ne FrYsTMGwfHieYFwuq4WoXOY jWCUcAJcfpkHkNFg9tcNmJK IgXHBsYWluXGYyXGZzMjAgY BAfTMT3sbK6LF6kkQ6anIjj derqj23tz5SzKGXcoWU9VEG sYWluXGYxXGZzMjBcbGFuZz EwMzNcaGljaFxmMVxkYmNoX YQlOJcpS4vzQgGfH3EjQJWk VzEnrATfQ8etJYRgZWWlICQ mCWVusJnkoO4jTjRjDsRlSL AwLjQgeCAwLjMgeCAwLjFcc OrfgN5xWuVmYxMeJQweON9f GNCxY1xaoFHsPHYnKAEjH8u yUzVgyC0xtXbaJOpkOdKsDs RgYBygkDDgqNEpC84fyImsb N5pCuBpYsIgTDUmEVUbhRxh bGFpblxmMVxmczIwXGxhbmc iMQIqMAvaE0tdUxPyWEUnwJ xkRQszi5BmOKMnTCCuJGnko cTdIQm5zpJjVK9tDNBzrABl yVuruH6kRrEyXrCoJXEpPSY sYWluXGYxXGZzMjBcbGFuZz EwMzNcaGljaFxmMVxkYmNoX BQtUNsuI9xaZiXyS0LaXDDc XsZvhLIjG5iqRqDzHPSiPPx uXGYzXGZzMjBcbGFuZzEwMz EtcHvqbPvbV7mzPfRzCVVuF VibT4yiJzLdL8MmVWQkGzRw l5OqjCMoBLN7IwPwERAfEMw wbGFpblxmMVxmczIwXGxhbm xvAFQhCXbyL1jnOgRkZZOsk GcjDRwld2BkLUMzZIMeZZve ixGhQHg4qvXfZLNvrnnxzTX pblxmMlxmczIwXHBhclxwbG FpblxmMVxmczIwXGxhbmcxM MCvWFioO1iuTmXqJQRleQlj WRgxg6JlVAMtBPSqPLfaakG qYEi4uiQlQQFbABIspCEgZS IuICBSZWNlaXZlZCBpbiBmb 3JtYWxpbiBsYWJlbGVkICJc rJfhpG7qMoDtRfGjLJqzAI8 yQCUgE8myhQIiVYQaFJGnB6 odKvQugD2lxSngHzloDhSmU uZhZHruck63ZAR5p3ozqZNk BUriLnujwZCcjbK6HLlELID AEBqUNxNoKS9bBSvXOgoPBS dJTnwzODAwMXwxfERCTElOS 9t3GHATWD5pPNngRcn6EF97 ZKZvZGKiaAViKQhzM245DLZ sYWluXGYyXGZzMjBcbGFuZz EwMzNcaGljaFxmMlxkYmNoX LDdMEplR5uqJzOtJ3PyGJNp VmKbmDSjqKFibFSLx7ygPRO DeC8hbsDSWIMjBDtkTSJiZU ZzMjBcbGFuZzEwMzNcaGlja RyxYykzKuDgTEAuECrdD5ex PbHfR8FiRAZyZjBbuAToqTN nvFxvDivfiNC9NEcsKwdvwV 5zdCBIWVBFUkxJTksgbmFtZ B0JJU9RRX5SwFD8OMGokFF0 AHCJDZ7EiAsNTRKtHtGaPHx yfHwwfXtcZmxkcnNsdCBcJz VizB0thIhfbY3mVtWmGsBfB XqjCS5uDGWhK7cirUDeHXHg RIGyX2vqIjQifC4zxGwxGNi jZjFcZnMyMFxsdHJjaCAiIG FyGHZrGGDoP64aaMDaJZOsh JzrnU7yLpSjWiBnGPQDBwNZ AEX9wq3hn76omESaZTGqMYp 3zyS8gD0pEQCxSSxwADYsKS ZzMjBcbGFuZzEwMzNcaGlja QxkZXmoFbOkRVCtQQhhV8sf VjVjI6MhKBTvGpPvjHOeB8m bDyRtrNmrxP2mAmLdNhWyYT BpcyBvbmUgdGhpbiwgdGFuL JNpjV7lmKbcQPTuRHQooNxn wP8eZdNrReQiFVshKR6mTVM cV1grdNTnTNBvYXNtP8wySr XtaG3ixFmvCJtuApJfZtOzW EvitSDcfWYswOnhI9Gmghue IFxwbGFpblxmMlxmczIwIDA gJPY7ZNNqKzR1XQItVZwjuZ FpblxmMVxmczIwXGxhbmcxM FGhIDbjK1otZzNgXMVwiVab WPzwm5CaMOYsCOFxRDsnciS iHSh6hzIiTIEqpD4uSSLbbS GxrTtibS3wQgXnAjTcSGTlM HBsYWluXGYxXGZzMjBcbGFu ZzEwMzNcaGljaFxmMVxkYmN rUWCaKVajE2nwSyLoZ7WbLK LiUqDfrDTjN0cnSsXgSSHkG WluXGYzXGZzMjBcbGFuZzEw QfPnzKihaDckY0krScJfAPN hNUsjL6wuSfKcI1VvAAZeCe Hwv7GqqOHhCXT4LlTfDDMvP PadLWNufVCnBPVjrkWhi7Go DJGkKOD1IAyrGDbraRxueWF pblxmMFxmczIwXHBsYWluXG YzXGZzMjBcbGFuZzEwMzNca NardZgbL9aySwMmKSPaPCep S8rpOnLgL6GpDWPcTvGht9B gfTYtPJH7YgZoMXMwFxUCP7 IRY5edKVJvrBQwJMUtDOizX BGwVZGmSjCzlGBtYKthr4Xy BLS2KA1pgdO2xS3sKPAxhhF dml9tHZHjkEuxLxf6OTClqM HkSP0itEhmVCizhFORl0Ymb TQufWSaJDU3LqCzQ7ntiqYj myg7SRAwiwEtKNPyAROpA55 iiZ0rvPEzME7EQNKsXnC1OC Bhcn0= [facility] Pathology report microscopic observation Narrative Other stain b2cojYMwARGflVKvEoEtTEB vXKBlo2hnUKKytTSgCqWmOq NcZnRuYmpcdWMxXGRlZmYwe 8drq488uZSkl6nhMLPwEsA5 wYWgWKFrgUNxB096LLXnSCk sd0vvg6GgTYLcjXUyz0Z7CU RYknfxnRb0tMhsZ55ce3H6J dqrE0oeAEFzIZEpC1XnTC7x POIhFwg1UJV2RHM8QBSxSUW bX1LoUQ9dJCFpnGMcYRy9u6 ppsGdqIYZpZSB4i0ugJEbrt mVhZO6mnd8ijTl6b6eurlRw OHGvHBAupTEAAVXjU4FnlPw oTy6xiIz1vNjfHkcsVZN7Qd w8QM1loq12yzw1ePzlXIQwx phnApY8BRehCHTjdrwhCNn1 SLehPYWvlPR4PKSnwUMjJ1Y aOQArPF6uyzx3FND3EOsmTY YiNwZ2ZJGkaZNwKCXklThpD Dowq442OIQ5NhGrVW8iG0Ne c5T2kX2snGItCPXhaXQpAqB iRACiux6feNIhGEzbt7YfAG A6guT0pPGnzRQuRXXyTG24W swqx6GhLtnnSIN5NYVllqLh a7Gqh0ezKiHxzxYiL7joJ3I yZHJoZWFkXHBnYnJkcmZvb3 Gwl6AatHJyrEs6q9ldGEKzD CHxeUlby8gdYOP5INWzN9F1 eDYfi8ubHXkeVDImfSA9cvS 9JFGujTNeD3UypL0rQRFrVX 2kcln3s5gnCZK2WPtbRPGyZ sW7qkY1FPJahGXoSXNdfZve MZmya941JCG8KnDsIHFzk2W xA0YlvKspT34qxSybE52bMM JzmTherU7cbMdnaR8lIhGgR nMyNFxxbFxwbGFpblxmMVxm lyPpBCpbalcdXCMhKNjcY2g zMiUqPEAblXlkUJdrw4FbBP UuICSzDtBsQVbovs2oO99uo KXqHXltdHrkVHZrj46gsHVq tZEpPk4usDUyFdquFDU9 [facility] Vancomycin Level, Randomon 0 10-12-2018 Vancomycin mass conc 18.4 mcg/mL [facility] No established reference range. [facility] CBCon 10-11-2018 Erythrocyte distribution width Entitic volume (RBC) 14.6 % 11.6 - 14.8 % [facility] Hematocrit Volume Fraction (Bld) 26.6 % Low 41 - 53 % [facility] Hemoglobin mass conc (Bld) 8.7 g/dL Low 13.5 - 17.5 g/dL [facility] Interpretation and review of laboratory results Abnormal [facility] MCH Entitic mass (RBC) 31.2 pg 26 - 34 pg [facility] MCHC mass conc (RBC) 32.7 g/dL 31 - 37 g/dL [facility] Comment on above: Cold Agglutinin pres ent MCV Entitic volume (RBC) 95.3 fL 80 - 100 fL [facility] Nucleated RBC #/vol (Bld) 0.00 10*3/uL [facility] Nucleated RBC/100 WBC Ratio (Bld) 0.0 % [facility] Platelet mean volume Entitic volume (Bld) 9.9 fL 9 - 15.5 fL [facility] Platelets #/vol (Bld) 160 10*3/uL [facility] RBC #/vol (Bld) 2.79 10*6/uL Low [facility] WBC #/vol (Bld) 4.58 10*3/uL [facility] Creatinine, Serumon 10-11-19 19 Creatinine mass conc 0.95 mg/dL 0.8 - 1 .3 mg/dL [facility] GFR/1.73 sq M predicted among non-blacks MDRD vol rate/area (S/P/Bld) The eGFR should be used for monitoring renal function only and not for medication dosing. [facility] GFR/1.73 sq M.predicted CKD-EPI vol rate/area (S/P/Bld) 76 >=60 mL/min/1.73 m2 [facility] Interpretation and review of laboratory results Normal [facility] TISSUE EXAMon 10-11-2018 Case Report Surgical Pathology Report Case: [id number] Authorizing Provider: Flynn Mann DPM Collected: 10/08/2018 07:43 AM Ordering Location: [facility] Received: 10/08/2018 01:42 PM Center Periop Pathologist: Shyanne Yoder MD Specimen: Amputation, Foot, Left, Left foot to pathology [facility] Clinical information w7llqUHcIBAtcTKyEvW yMDA qGIHwb0cmDEYfrGUnStPdWv NcZnRuYmpcdWMxXGRlZmYwe 5dlg738qKQqg6qpPXDsCoW4 eDKzWFZinSOkX355z6tsg9o ldnUzgTS8WPJmAWL7NEguah ReczY2ELhwbYGxVkO5DDcmn jPaXRjzatPodsOoEzv0OUSl K247WYV1vHwok5rvCLO1VMP zTMSgXjDyBk9lnBZyZ927IL NuKBNSGZJhcRe1WWCqiwYek jCaaXXOq173F855w6oiUEUd qsCbcJoLxafia7etZ965IZV hcGVydzEyMjQwXHBhcGVyaD B1DAPvBO5nfhdeNyNwYH0em gwoRjLjJT4jyfl9VQH0QRxx MYOqDdM6JUHenBElQOVmjMb iWJutr313JOD1MYpal3voa7 eepFGjDry0IGZxVrJmLypvK Zuyh2Mvy2nlXYBxpy0tAGN6 qTChdQqec4R8dXTzVJEutCC eqjLzXLQzLwD3UWdbUU5sop 13VZNcXJQ5jt0faPVosOmyr oMtmLVxFFzoD7JvHGPfm329 BVYaL4TrNNUwn8A4gdMhKjY zAOGceUI8daQ9XWPgCLv3rE XbfgW4enLtbJWpS3oxmH18H cQxmMNmY7QrjZ24QbWkeKWl U5WmsM4pMUFdOS5qvrbve6y xRIE8GTqhMVYyERH8GrAqMO Hff2XlwsfxKUVit8AnX4Yms AdwL82krUziK93kINJrhUtz aR0cyXvapD1wIoZtYzPuFUr xbFxwbGFpblxmMFxmczIwXG dokqdbTOEdPJelR9zpRfKmJ WFgjFvyNQfhb3YbCZTdWMBf YkLlLEXovNHop350CDimysj vXS7iDcdzJFO2 [facility] Pathology report final diagnosis Narrative d6qnoXJuRLItfIVgPoShHAT tFDMfz1lpECSssMRfYvBzSo NcZnRuYmpcdWMxXGRlZmYwe 7lkl250bQXnx4kzMCIrAtS5 sTXtVEXagLXeB812WWTmBSm yw3ntv0PyDGSyaVLlx0E3YS HMcruxnMo7eBfkT40xl8T8Y gjrO0odRONhJVryNOZrPIje uNJvBRM7JXSlLWJ1PBwfjbD mvwQ9SWsyjDCbYrT3FSk1d9 dytQyqEZSkGKH7g0stQNgol oEaJY9iii6zvEz2i3gsuvMq MHYiRPFujZCISTHvX1LdfNg yUz9wzJb2nHuvVtkvPOP7Ko f2KF5urd62mmp1hXvfQKAkw mksVgP6QTbeAXCkokgtGXf9 MFxtYXJnbDcyMFxtYXJncjc zYJtbHIEwqVD7ZHRegNPkZ9 WuDQChDIpcOGXcbxl2UgGzZ u5zhZPsxYHyra7sqb86LOW9 h7BpeHqvVIZ5HHO9PtZhDh0 bfMVrAPLpFQ1eKxKbhCXsTS Gilz32aQqkSXxkjtWwjW0iX tRoRPRacBJdEMLaIEImQ3ay VeShtrDaR8bgM5UhMXXlRGO tPSOnLdXtljUak0Rii4SdeN HplOm3k5vlVTGqYCDynMqmy 6bsBIB6ZLCnM8U8eMOlq6em WPcuQFIyrFM2kfbkSYnpSIW onzB9fiqmYFonCZSniSR7qb O0FATwaLDqS0LisP1rVEIyG SomZWQhsaj7BgBrQu2ciSLu qZVal0CvkJOhHXxdL68ra73 1HYOwbmDcO6iagOJmjdvbeN FpblxmMFxmczIwXHBhcmRcc 2YvZVEfCXZ0FWdtUDvdePAx TQDcbXuwp0zcZ7SliMWnVLP sYWluXGYwXGZzMjBccGxhaW 4dBkRgZjApBSvrOA9aXONqE 8egcVPlQOXqQZRjO7xdApHa dK9hiNbmYOghKlUwXuXmVWs iXHBhclxwbGFpblxmMVxmcz XvEBhmbrjyFCEaZEauG3uaI xLhYCFhuDguMXysu5NiTBZi XGNmMVxmczIyXGIgTGVmdCB zl268TNMsrRO3yZL0uJ9uHM BsYWluXGYxXGZzMjJcbGFuZ zEwMzNcaGljaFxmMVxkYmNo PSZgYUzdH6urLzXpH6UnMDX wVzBcfYPeH2hcXrE7TYEgOR luXGYxXGZzMjJcbGFuZzEwM zNcaGljaFxmMVxkYmNoXGYx MUtaW8tzHxBuL3AaEJPoAlA cYlxwYXJccGFyXHBhcmRcc3 KrENVpPDM1JKtcRPximYtap GFpblxmMFxmczIwXHBsYWlu XGYxXGZzMjJcbGFuZzEwMzN caGljaFxmMVxkYmNoXGYxXG haS3xpZhDbH0RsDWSoCjKrJ iAgICAgICBVbGNlciBhbmQg b33pbPY5vFUjiOPiSX1kNHF hprRgvqIdwi1uyPHwSTDrsu xwbGFpblxmMFxmczIwXHBhc lxwYXJ9 [facility] Pathology report gross observation Narrative s9pzhZQkRVZgbVWrNfQtQVB uCSBqe8hsZOXrdYZbZfYwLl NcZnRuYmpcdWMxXGRlZmYwe 6rsc926jDUdh7cfDZCsRcV4 pIShWYGwjJDfY356QWKfYHc neo3nHT7gDCEnkEBlt9I0FY QBgpoufXy4r4tvXrAgAcV0b ELgVRzpW6ianqTymWAuACLp YQo2sA05GGEjeN1heEYtUHl ysnZeSYtglxWkxyMlPde5DI DnX8moEVFyMODnT7QkIQ1bI YViTaq4BRA8PVX4CUOyMABw MFxncmVlbjIxMFxibHVlMjU 0MGb8d5jjmSzfXXSwVBC8y8 rkCTrddvRuPS4gvb7xbCl7b 1xjczEgRGVmYXVsdCBQYXJh N6SroAlmBb2xnQr1fGlyHjo pYGF0Zrl8UL9ame65bwm6pI ccEJQlvlprSbA3ADokCLNtq pnmRId8LQgaCKFynNoyQMnv DBIhwhofEFdwMDTtuIB9BUP lmILyH4YpSKXjHPwiKVMlft u1PsHeBc6qkCXofJLbit8sg n12OBR2p7HvmNxfOIF8HOU6 YeFsNh2ziWYrHWUpDJ7pBtN ltUJeICOesy94jCmzBAlhpu ObqA1bWeGwBCLblWZdJRNzF MVaW3xmXdSnzaHuH9boZ8Ar RLPhIMKvMWRpLpUtawVfu9G ut6AxqWCzgEa4f0hrWQPwCG TjkQbxi8qvNVO5VISiZ5F0e OGln4ouAPnbVSFelPI0osyj SGuwLILgucZ3gebhVVjuMKG fdXH7ouZ3ALRraNMyE5DgvK 1gRWWkZEtzBGOyzby1KdMeE q9xwKHzfINxd6GtyKYcPGrv L28jo632CHWtriWhN7zauKR pblxwbGFpblxmMFxmczIwXH FsXHBsYWluXGYwXGZzMjBcc VlrxU1xWpLwIoKaRKgbRO0n NCMxP4zawGXrYTKbHHEoE9h zVzQciQ3ckRvzIHsgIiIzUm MyMFxsdHJjaCBSZWNlaXZlZ XMcqoZtw1HlLFnxypEzTBRr oPAxCIGpdFsroA2sBaMzEkL oACbbUY5fBKHhG6pwqCGfYL VnOAIzW1cxFpHksU7qgQobQ UpmSiReRaVxNBotni20EGU1 v5npkAOdBIkuZmclsYLxqyT 2EIeZDQADMSkRGlWcVY4hTG xJTktCRUdJTnwzODAwMXwwf BLBGWpLN0j8QIXOPT6zZCrj Lsw4GP95YLLgYXSyiHPaCZe zG539KGLiDWdfUSUaNMMmAn BcbGFuZzEwMzNcaGljaFxmM GjbOvOoLRZvSQirK0blOjBs F0YwJCNdUkCzgHYqgMDmmKP Pr7uuWKFOaS0ilmEZTUQbHJ luXGYxXGZzMjBcbGFuZzEwM zNcaGljaFxmMVxkYmNoXGYx GNjaE9keJbVgJ0LiQHAuXhL arYXkpZJrjBwpTdhgpTZ5NF nlXrjyiM5btMDRPYBJTxmBF xbtteHnQH9BCL7CLT6UjZE9 KHWndZE9SKLYET5RqNnPJBY sLjIsLCwyfHwxfXtcZmxkcn HnbIWbBeGqkS0xoZgdiI5iN aRdXkRhVNkcLV6rSMTyZ2uw qBEsBLUrHIWcW4slOvYlgJ0 jaFxmMVxjZjFcZnMyMFxsdH CknHQoBICtVTEwIFAnG66hq IDqOBWjtIlsiG5eJcAwXdRg JTFbLIF0NWCue8PiRM3yfDA hdGlvblxwbGFpblxmMVxmcz QtJZavvyabJGOrGIhcM4idF qKdJRZltBvfPCacf4WlAUEz BHZkMVwuziIdEMv9qcQjHQC ozMmmcV4yKjDeLcDsWGKnpG CqSZJjvCXgyvOkR4ScUMSvB TOeEQU1DKPyajBpw279YOMo QBW3YWvtYLK0ZYDsT77yHFU GuKBhq8scxoMcmhM6JZ3wz3 lygGAwOMcvcS2taWLdCdZnL CoyKOVcjZ1mb71cgEufOAIa ONCvNN1nDMQsUFXogEI5MJf frYFyLyOmWhT7rRNpUV2qs7 FwFSK5deMlT2Nik4IepPrrR CLei3UyvNQiU3Xnj1GcqRHg mG9kiZOiIPOkFQOzpRJqJN8 jTKUymbDnHt0mYEsnnCJzZV Mzd9EwJn5zVIZmxaHeSOgpm VNtEKWaICNywdJlFB40OZZq OHRbLItbtBqhIFC9YF7cfT4 npHUetP38HVZ6hWokj1DjKV GffS2rotCdnN4pELIhzYJnF WVabPvtpxEfUZc6QTOfXMUw HKNzZTRqqIFrjLmbt8Tek33 fKZZvXGD0tQquDDVmhH8zqF Ztmz1nEq9iUOWzHT4wHQTfc LSjtaAyU7YdQROpbSVmuTYs Qo9yRK3aWASsXLLnaiOuP1T tTURqi2PmWmUuGEPjTDIaZB rfBHusx8bvnZCoZTLmv810r J2zPBrsGGTymJQzXMLgl1Vx sJAjXTX7tM6zoya5GBCGHH3 rWPDdEGUxjlZftOv5CLVuu3 zmUDDwe3QvsPleihFoJSAdt R5wPUYsCGWaCeGDVw1jAKWt GFIgcuVffEw7HGCzHHLkt9A rZaSbbxQtCsvxF5xxJRRhyR UpTW8sLUEqc0ssPiOWEa9tv 65xMLJbJXUutS5hBjigU1da zJliK9sxwoOzLJSarG4bLIO bL7PrE1ydfVKqIfZNZX4kSG WbRRDnrxQoaEh9VCYnpCHvc JTwSl9vWRafERWiYBcboWIm LHV8SZB8KDUizRHli0ZbcOE 7cFScIOMmzDVjLDI5luOtVq 3bbYXtd89xPAUwKZEkfXCgV qpoHR2bSJ2vRS6mPRRemvij TFJtF0PLU6OUDf7wwIceLZM wccljBUEeU4Auo1CnIOebfB lxIXZie26byZUtXh9qhRQrR GY3PiNZeRHsuaOdQAIfGCD9 rI7hoAZ1EXnbu7PxlCWcIT2 vSwKdKMDVsPJpqSXlC8irBu u5DFGsQr7kVTLSb1l5eUB8v dlgM7yuIHOhVOJuATOwta5= [facility] Pathology report microscopic observation Narrative Other stain g7uncBVjYYWyaKSjGpCvGZL zHIFxf5boAKItzCGgVdGcUh NcZnRuYmpcdWMxXGRlZmYwe 7lnl781tBOci1zlCDTjEvS0 gLOpRZEpuRAbN501IWYyRRe ve5kvv6HlUABnnLIqr9G1FS EEfpscxGs7qRcrH71gd8T8W ggqX0viLABrBYIlV3ErZA3o KSUiObb2CKI6XDW4GVAxMCP zS2LbKS1dEDCelBVvINm5e7 pwkAtkXQNsAZL4u6qvPKwzs cQxBR9uky3ktOi4x1tbmwCt NQEjPEKbsVRNKEBeR2FxfMt mGv6lrZj5ySkvLmerKFL9La q4XI5uof28eum6bMmnBQXnl sqhLtB2OEauETDmukwaNWr3 DPdfUUWxmNM9RMDgnYKyT7I eSCHgST6fmjn4AEC8WYzkEJ TwSdE3BYYqeFDgZRAkbDraH Fvnc776JCS2CxQcRK4aH8Td z5U0bV7jqRSiAMHyuQLhWoQ bDUSqft1shLAmSZluf6GrUL Z2ieR4qVAhfAZoEUVvCI72Y bimq4PjPzgxXKM4RNTbiuUr w3Rbm1ckQlUavgUkF0jbC2S yZHJoZWFkXHBnYnJkcmZvb3 Wbc2CztKSjeCe1q0pjTOSxU QOmpIrzx1yeMIJ0RDKsH0H4 yZIun4yhSGeaGLEvdBA3dzD 1XDNdsOReS2PgmX1dJQJzTN 2some2d4fjCMK6YBflSZYdF yB4jxK9OMJsbJGzOFPtgCll KOtwk430MVF9UwAuWHZtm3M mB3MqfVjeM65uoAoiU62dZO LpaWhnyX2duNlcxP9eWeYsX nMyNFxxbFxwbGFpblxmMVxm zmRyBGyehozvKTEpKXuoV7l rSnLaEISkyUnpCTvor5SzBS YgXOWiTeMqIJswgv9tX44yv LVjILsbsUveMMUjl34tyDNo lDVdNy5fkNDeKcczIAA2 [facility] Vancomycin Level, Randomon 0 10-11-2018 Vancomycin mass conc 14.3 mcg/mL [facility] established reference range. [facility] XR Foot Left 2 Viewson [...] the lateral malleolus. Overlying casting obscures detail. 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 Surgical drain present. [employer] Workstation ID: [id number] [facility] Interface, Rad In Fu ji [...] the midfoot Chopart articulations. Surgical drain present. [employer] Workstation ID: [id number] [facility] Creatinine, Serumon 10-10-19 19 Creatinine mass conc 1.06 mg/dL 0.8 - 1 .3 mg/dL [facility] GFR/1.73 sq M predicted among non-blacks MDRD vol rate/area (S/P/Bld) The eGFR should be used for monitoring renal function only and not for medication dosing. [facility] GFR/1.73 sq M.predicted CKD-EPI vol rate/area (S/P/Bld) 66 >=60 mL/min/1.73 m2 [facility] Interpretation and review of laboratory results Normal [facility] ECG 12-LEADon 10-10-2018 Atrial Rate 72 BPM [facility] P [place] -163 degrees [facility] P-R Interval 162 ms [facility] Q-T Interval 418 ms [facility] QRS Duration 98 ms [facility] QTC Calculation (Bezet) 457 ms [facility] R [place] 137 degrees [facility] T [place] 134 degrees [facility] Ventricular Rate 72 BPM [facility] th Suspect arm lead reversal, interpretation assumes no reversal Unusual P axis, possible ectopic atrial rhythm Lateral infarct , age undetermined Abnormal ECG When compared with ECG of 05-SEP-2018 13:28, Ectopic atrial rhythm has replaced Sinus rhythm QRS axis Shifted right Confirmed by Maxim Ward M.D. ([id number]) on 10/10/2018 1:34:17 PM [facility] Hemoglobin and Hematocriton 10-10-2018 Hematocrit Volume Fraction (Bld) 25.1 % Low 41 - 53 % [facility] Comment on above: PRE-WAMED FOR COLD A GGLUTININ Hemoglobin mass conc (Bld) 8.2 g/dL Low 13.5 - 17.5 g/dL [facility] Interpretation and review of laboratory results Abnormal [facility] Hematocrit Volume Fraction (Bld) 24.0 % Low 41 - 53 % [facility] Hemoglobin mass conc (Bld) 8.3 g/dL Low 13.5 - 17.5 g/dL [facility] Interpretation and review of laboratory results Abnormal [facility] Vancomycin Level, Troughon 0 10-10-2018 Interpretation and review of laboratory results Abnormal [facility] Vancomycin trough mass conc 27.4 ug/mL Critically high [facility] XR Chest 1 Viewon 10-10-2018 [...] of underlying COPD. TRP/jw Workstation ID: [id number] [facility] 1. Increased bibasil ar pulmonary opacities may represent atelectasis, pneumonia, and/or aspiration. Recommend radiographic follow-up to complete resolution. 2. Findings suggestive of underlying COPD. TRP/jw Workstation ID: [id number] [facility] EXAMINATION: SINGLE XRAY VIEW OF [...] pneumothorax. No evidence of acute osseous abnormalities. [facility] Basic Metabolic Panelon 09-28 Anion gap molar conc 16 mmol/L 10 - 20 mmol/L [facility] Calcium mass conc 8.6 mg/dL 8.4 - 10.2 mg/dL [facility] Chloride molar conc 106 mmol/L 98 - 108 mmol/L [facility] Creatinine mass conc 0.90 mg/dL 0.8 - 1 .3 mg/dL [facility] GFR/1.73 sq M predicted among non-blacks MDRD vol rate/area (S/P/Bld) The eGFR should be used for monitoring renal function only and not for medication dosing. [facility] GFR/1.73 sq M.predicted CKD-EPI vol rate/area (S/P/Bld) 81 >=60 mL/min/1.73 m2 [facility] Glucose mass conc 111 mg/dL High 65 - 99 mg/dL [facility] HCO3 molar conc 23 mmol/L 21 - 32 mmol/L [facility] Interpretation and review of laboratory results Abnormal [facility] Potassium molar conc 4.2 mmol/L 3.5 - 5 .1 mmol/L [facility] Sodium molar conc 141 mmol/L 135 - 145 mmol/L [facility] Urea nitrogen mass conc 9 mg/dL 8 - 25 mg/dL [facility] Urea nitrogen/Creatinine mass ratio 10.0 mg/mg [facility] CBCon 10-09-2018 Erythrocyte distribution width Entitic volume (RBC) 15.3 % High 11.6 - 14.8 % [facility] Hematocrit Volume Fraction (Bld) 27.7 % Low 41 - 53 % [facility] Hemoglobin mass conc (Bld) 8.9 g/dL Low 13.5 - 17.5 g/dL [facility] Interpretation and review of laboratory results Abnormal [facility] MCH Entitic mass (RBC) 31.2 pg 26 - 34 pg [facility] MCHC mass conc (RBC) 32.1 g/dL 31 - 37 g/dL [facility] Comment on above: Cold Agglutinin pres ent MCV Entitic volume (RBC) 97.2 fL 80 - 100 fL [facility] Nucleated RBC #/vol (Bld) 0.00 10*3/uL [facility] Nucleated RBC/100 WBC Ratio (Bld) 0.0 % [facility] Platelet mean volume Entitic volume (Bld) 9.7 fL 9 - 15.5 fL [facility] Platelets #/vol (Bld) 187 10*3/uL [facility] RBC #/vol (Bld) 2.85 10*6/uL [facility] WBC #/vol (Bld) 5.18 10*3/uL [facility] Creatinine, Serumon 10-09-19 19 Creatinine mass conc 0.95 mg/dL 0.8 - 1 .3 mg/dL [facility] GFR/1.73 sq M predicted among non-blacks MDRD vol rate/area (S/P/Bld) The eGFR should be used for monitoring renal function only and not for medication dosing. [facility] GFR/1.73 sq M.predicted CKD-EPI vol rate/area (S/P/Bld) 76 >=60 mL/min/1.73 m2 [facility] Interpretation and review of laboratory results Normal [facility] Gastrocult Gastricon 019 Hemoglobin.gastrointe stinal Ql (Ciera fld) Positive Abnormal Negative for Occult Blood [facility] Interpretation and review of laboratory results Abnormal [facility] Hemoglobin and Hematocriton 10-09-2018 Hematocrit Volume Fraction (Bld) 23.2 % Low 41 - 53 % [facility] Hemoglobin mass conc (Bld) 8.6 g/dL Low 13.5 - 17.5 g/dL [facility] Interpretation and review of laboratory results Abnormal [facility] XR CHEST PA/APon 10-09-2018 XR [...] on MonOct 10, 2018 8:22:38 AM EST [facility] Comment on above: Order Comment: Reaso n for exam?:Dyspnea Injury/Trauma or Illness?:Illness/Other How long have you had these symptoms (acute/chronic)?:Acute History of cancer?:unk Surgeries, chemotherapy, or radiation?:YES Type of Exam?:Initial Additional signs and symptoms?:na Basic Metabolic Panelon 09-28 Anion gap molar conc 16 mmol/L 10 - 20 mmol/L [facility] Calcium mass conc 9.1 mg/dL 8.4 - 10.2 mg/dL [facility] Chloride molar conc 108 mmol/L 98 - 108 mmol/L [facility] Creatinine mass conc 0.70 mg/dL Low 0.8 - 1 .3 mg/dL [facility] GFR/1.73 sq M predicted among non-blacks MDRD vol rate/area (S/P/Bld) The eGFR should be used for monitoring renal function only and not for medication dosing. [facility] GFR/1.73 sq M.predicted CKD-EPI vol rate/area (S/P/Bld) 90 >=60 mL/min/1.73 m2 [facility] Glucose mass conc 90 mg/dL 65 - 99 mg/dL [facility] HCO3 molar conc 23 mmol/L 21 - 32 mmol/L [facility] Interpretation and review of laboratory results Abnormal [facility] Potassium molar conc 3.8 mmol/L 3.5 - 5 .1 mmol/L [facility] Sodium molar conc 143 mmol/L 135 - 145 mmol/L [facility] Urea nitrogen mass conc 6 mg/dL Low 8 - 25 mg/dL [facility] Urea nitrogen/Creatinine mass ratio 8.6 mg/mg Low [facility] CBCon 10-08-2018 Erythrocyte distribution width Entitic volume (RBC) 15.5 % High 11.6 - 14.8 % [facility] Hematocrit Volume Fraction (Bld) 31.0 % Low 41 - 53 % [facility] Hemoglobin mass conc (Bld) 10.4 g/dL Low 13.5 - 17.5 g/dL [facility] Interpretation and review of laboratory results Abnormal [facility] MCH Entitic mass (RBC) 33.4 pg 26 - 34 pg [facility] MCHC mass conc (RBC) 33.5 g/dL 31 - 37 g/dL [facility] MCV Entitic volume (RBC) 99.7 fL 80 - 100 fL [facility] Nucleated RBC #/vol (Bld) 0.00 10*3/uL [facility] Nucleated RBC/100 WBC Ratio (Bld) 0.0 % [facility] Platelet mean volume Entitic volume (Bld) 9.7 fL 9 - 15.5 fL [facility] Platelets #/vol (Bld) 202 10*3/uL [facility] Comment on above: Platelets clumped on peripheral smear. Results may be affected RBC #/vol (Bld) 3.11 10*6/uL Low [facility] WBC #/vol (Bld) 3.86 10*3/uL [facility] ECHOCARDIOGRAM COMPLETEon ECHOCARDIOGRAM COMPLETE REPORT _ Patient: SHERRY Jones Rec#: [id number] (Age): 1940(78y) Height: 188(cm)/73(in) Study Date: 10/08/2018 Weight: 99(kg)/218(lbs) Room#: 2456 BSA: [id number] Type: Inpatient [facility] Sex: M _ Reading: MD Nikhil Davalos Referring: AARON CHOI DANIEL Portrait Photographer: Geovani Matson RDCS, RVT History: Hyperlipidemia Hypertension. Valvular disease. Diagnosis: ICD-10-PCS Encounter for preprocedural cardiovascular examination (Z01.810) Cardiac Complications, not classified (997.1) CPT Code(s): ECHO COMPLETE W/ DOPPLER (13289) HCPCS Code C8923 Echo Full w/ contrast. [...] 0.9) PV peak gradient 3.23 mmHg none AK end-diastolic Vmax 1.41 m/sec none PA end-diastolic pressure 12.95 mmHg none PV acceleration time 77 msec none Electronically Signed at 10/08/2018 17:26:05 by: Emmanuel Connor MD [facility] REPORT _ Patient: SHERRY Jones Rec#: [id number] (Age): 1940(78y) Height: 188(cm)/73(in) Study Date: 10/08/2018 Weight: 99(kg)/218(lbs) Room#: 2456 BSA: [id number] Type: Inpatient [facility] Sex: M _ Reading: MD Nikhil Davalos Referring: AARON CHOI DANIEL Portrait Photographer: Geovani Matson [facility], RVT History: Hyperlipidemia Hypertension. Valvular disease. Diagnosis: ICD-10-PCS Encounter for preprocedural cardiovascular examination (Z01.810) Cardiac Complications, not classified (997.1) CPT Code(s): ECHO COMPLETE W/ DOPPLER (98113) HCPCS Code C8923 Echo Full w/ contrast. [...] 0.9) PV peak gradient 3.23 mmHg none AK end-diastolic Vmax 1.41 m/sec none PA end-diastolic pressure 12.95 mmHg none PV acceleration time 77 msec none Electronically Signed at 10/08/2018 17:26:05 by: Emmanuel Connor MD FACC [facility], Rad In [facility] - 10/08/2018 5:27 PM EST REPORT _ Patient: SHERRY Jones Rec#: [id number] (Age): 1940(78y) Height: 188(cm)/73(in) Study Date: 10/08/2018 Weight: 99(kg)/218(lbs) Room#: 2456 BSA: [id number] Type: Inpatient Loc: [facility] Sex: M _ Reading: MD Nikhil Davalos Referring: AARON CHOI DANIEL Portrait Photographer: Geovani Matson RD, T History: Hyperlipidemia Hypertension. Valvular disease. Diagnosis: ICD-10-PCS Encounter for preprocedural cardiovascular examination (Z01.810) Cardiac Complications, not classified (997.1) CPT Code(s): ECHO COMPLETE W/ DOPPLER (76153) HCPCS Code C8923 Echo Full w/ contrast. [...] 0.9) PV peak gradient 3.23 mmHg none AK end-diastolic Vmax 1.41 m/sec none PA end-diastolic pressure 12.95 mmHg none PV acceleration time 77 msec none Electronically Signed at 10/08/2018 17:26:05 by: Emmanuel Connor MD [facility] PT/INRon 10-08-2018 INR Coag RelTime (PPP) 1.1 {INR} [facility] Interpretation and review of laboratory results Normal [facility] Prothrombin time (PT) Coag time (PPP) 13.9 s [facility] During the induction phase of oral anticoagulation, the INR may not reflect the anticoagulation status of the patient. Therapeutic ranges for INR's are: Most clinical situations: INR 2.0-3.0 Mechanical Prosthetic Valve: INR 2.5-3.5 Critical: INR >5.0 [facility] XR FOOT LEFT 2 VIEWSon [...] articulations. Surgical drain present. CASSANDRA/karie Workstation ID: [id number] Dictated by: NAT RHODES on MonOct 08, 2018 1:43:13 PM EST Transcribed by: JAK WATSON on MonOct 08, 2018 2:16:35 PM EST Finalized by: NAT RHODES on MonOct 11, 2018 8:36:46 AM EST [facility] Comment on above: Order Comment: Reaso n for exam?:post-op foot / ankle Injury/Trauma or Illness?:Illness/Other How long have you had these symptoms (acute/chronic)?:Unknown History of cancer?:unk Surgeries, chemotherapy, or radiation?:YES Type of Exam?:Ongoing Additional signs and symptoms?:UNL Creatinine, Serumon 10-07-19 19 Creatinine mass conc 0.70 mg/dL Low 0.8 - 1 .3 mg/dL [facility] GFR/1.73 sq M predicted among non-blacks MDRD vol rate/area (S/P/Bld) The eGFR should be used for monitoring renal function only and not for medication dosing. [facility] GFR/1.73 sq M.predicted CKD-EPI vol rate/area (S/P/Bld) 90 >=60 mL/min/1.73 m2 [facility] Interpretation and review of laboratory results Abnormal [facility] Vancomycin Level, Troughon 0 10-07-2018 Interpretation and review of laboratory results Normal [facility] Vancomycin trough mass conc 10.9 ug/mL [facility] XR FOOT LEFT 3+ VIEWS (STAND KHALIF)on 10-06-2018 1. Limited evaluatio n due to overlying dressing material and diffuse osteopenia. No radiographic evidence of soft tissue gas. No radiographic evidence of new area of osseous destruction. 2. No acute osseous abnormalities identified. RECOMMENDATIONS: If further evaluation is clinically warranted, consider MRI or CT. [employer]/mEgo Workstation ID: [id number] [facility] Interface, Rad In Fu ji [...] is clinically warranted, consider MRI or CT. TRP/mEgo Workstation ID: [id number] [facility] EXAMINATION: 3 XRAY VIEWS OF [...] and screw fixation of the distal tibia. [facility] Basic Metabolic Panelon Anion gap molar conc 15 mmol/L 10 - 20 mmol/L [facility] Calcium mass conc 9.1 mg/dL 8.4 - 10.2 mg/dL [facility] Chloride molar conc 109 mmol/L High 98 - 108 mmol/L [facility] Creatinine mass conc 0.67 mg/dL Low 0.8 - 1 .3 mg/dL [facility] GFR/1.73 sq M predicted among non-blacks MDRD vol rate/area (S/P/Bld) The eGFR should be used for monitoring renal function only and not for medication dosing. [facility] GFR/1.73 sq M.predicted CKD-EPI vol rate/area (S/P/Bld) 91 >=60 mL/min/1.73 m2 [facility] Glucose mass conc 92 mg/dL 65 - 99 mg/dL [facility] HCO3 molar conc 23 mmol/L 21 - 32 mmol/L [facility] Interpretation and review of laboratory results Abnormal [facility] Potassium molar conc 4.2 mmol/L 3.5 - 5 .1 mmol/L [facility] Sodium molar conc 143 mmol/L 135 - 145 mmol/L [facility] Urea nitrogen mass conc 9 mg/dL 8 - 25 mg/dL [facility] Urea nitrogen/Creatinine mass ratio 13.4 mg/mg [facility] CBCon 10-05-2018 Comment PERIPHERAL SMEAR REVIEWED MANUALLY [facility] Erythrocyte distribution width Entitic volume (RBC) 15.5 % High 11.6 - 14.8 % [facility] Hematocrit Volume Fraction (Bld) 31.9 % Low 41 - 53 % [facility] Hemoglobin mass conc (Bld) 11.0 g/dL Low 13.5 - 17.5 g/dL [facility] Interpretation and review of laboratory results Abnormal [facility] MCH Entitic mass (RBC) 34.2 pg High 26 - 34 pg [facility] MCHC mass conc (RBC) 34.5 g/dL 31 - 37 g/dL [facility] MCV Entitic volume (RBC) 99.1 fL 80 - 100 fL [facility] Nucleated RBC #/vol (Bld) 0.00 10*3/uL [facility] Nucleated RBC/100 WBC Ratio (Bld) 0.0 % [facility] Platelet mean volume Entitic volume (Bld) 9.5 fL 9 - 15.5 fL [facility] Platelets #/vol (Bld) 237 10*3/uL [facility] RBC #/vol (Bld) 3.22 10*6/uL Low [facility] WBC #/vol (Bld) 3.95 10*3/uL Low [facility] Prewarmed Patient beck s cold agglutinin. [facility] CBC WITH AUTO DIFFERENTIALon 10-04-2018 Basophils #/vol (Bld) 0.03 10*3/uL [facility] Basophils/100 WBC (Bld) 0.6 % [facility] Eosinophils #/vol (Bld) 0.14 10*3/uL [facility] Eosinophils/100 WBC (Bld) 3.0 % [facility] Erythrocyte distribution width Entitic volume (RBC) 15.7 % High 11.6 - 14.8 % [facility] Hematocrit Volume Fraction (Bld) 32.7 % Low 41 - 53 % [facility] Hemoglobin mass conc (Bld) 11.3 g/dL Low 13.5 - 17.5 g/dL [facility] Immature granulocytes #/vol (Bld) 0.02 10*3/uL [facility] Immature granulocytes/100 WBC (Bld) 0.40 % [facility] Comment on above: The IG parameter is the percentage of metamyelocytes, myelocytes, and promyelocytes. Interpretation and review of laboratory results Abnormal [facility] Lymphocytes #/vol (Bld) 0.94 10*3/uL [facility] Lymphocytes/100 WBC (Bld) 20.3 % [facility] MCH Entitic mass (RBC) 33.6 pg 26 - 34 pg [facility] MCHC mass conc (RBC) 34.6 g/dL 31 - 37 g/dL [facility] MCV Entitic volume (RBC) 97.3 fL 80 - 100 fL [facility] Monocytes #/vol (Bld) 0.46 10*3/uL [facility] Monocytes/100 WBC (Bld) 10.0 % [facility] Neutrophils #/vol (Bld) 3.03 10*3/uL [facility] Neutrophils/100 WBC (Bld) 65.7 % [facility] Nucleated RBC #/vol (Bld) 0.00 10*3/uL [facility] Nucleated RBC/100 WBC Ratio (Bld) 0.0 % [facility] Platelet mean volume Entitic volume (Bld) 8.5 fL Low 9 - 15.5 fL [facility] Platelets #/vol (Bld) 248 10*3/uL [facility] RBC #/vol (Bld) 3.36 10*6/uL Low [facility] WBC #/vol (Bld) 4.62 10*3/uL [facility] CRP, Inflammationon 10-04-19 19 CRP mass conc 12.5 mg/L High 0 - 10 mg/L [facility] Interpretation and review of laboratory results Abnormal [facility] Comprehensive Metabolic Pane donta 10-04-2018 Albumin mass conc 3.5 g/dL 3.2 - 5.2 g/dL [facility] ALP enzyme act/vol 109 U/L 40 - 150 U/L [facility] ALT enzyme act/vol 25 U/L 0 - 40 U/L [facility] Anion gap molar conc 16 mmol/L 10 - 20 mmol/L [facility] AST enzyme act/vol 25 U/L 0 - 45 U/L [facility] Bilirubin mass conc 0.5 mg/dL 0 - 1.3 mg/dL [facility] Calcium mass conc 9.3 mg/dL 8.4 - 10.2 mg/dL [facility] Chloride molar conc 104 mmol/L 98 - 108 mmol/L [facility] Creatinine mass conc 0.92 mg/dL 0.8 - 1 .3 mg/dL [facility] GFR/1.73 sq M predicted among non-blacks MDRD vol rate/area (S/P/Bld) The eGFR should be used for monitoring renal function only and not for medication dosing. [facility] GFR/1.73 sq M.predicted CKD-EPI vol rate/area (S/P/Bld) 79 >=60 mL/min/1.73 m2 [facility] Glucose mass conc 94 mg/dL 65 - 99 mg/dL [facility] HCO3 molar conc 26 mmol/L 21 - 32 mmol/L [facility] Interpretation and review of laboratory results Normal [facility] Potassium molar conc 4.6 mmol/L 3.5 - 5 .1 mmol/L [facility] Protein mass conc 6.9 g/dL 6 - 8 g/dL [facility] Sodium molar conc 141 mmol/L 135 - 145 mmol/L [facility] Urea nitrogen mass conc 12 mg/dL 8 - 25 mg/dL [facility] Urea nitrogen/Creatinine mass ratio 13.0 mg/mg [facility] Hemoglobin A1con 10-04-2018 Average glucose Estimated from glycated hemoglobin mass conc (Bld) 88 mg/dL 68 - 126 mg/dL [facility] Hemoglobin A1c/Hemoglobin.total mass fraction (Bld) 4.7 % 4.2 - 6 % [facility] Interpretation and review of laboratory results Normal [facility] Sedimentation Rateon 019 ESR Velocity (Bld) 9 mm/h [facility] Interpretation and review of laboratory results Normal [facility] XR FOOT LEFT 3+ VIEWS [...] is clinically warranted, consider MRI or [facility]/dbg Workstation ID: [id number] Dictated by: MOJGAN PINO on MonOct 04, 2018 7:30:36 PM EST Transcribed by: RACHEAL ARZATE on MonOct 04, 2018 7:42:46 PM EST Finalized by: MOJGAN PINO on [facility] Oct 06, 2018 3:44:00 PM EST Normal [facility] Comment on above: Order Comment: Reaso n for exam?:Left foot gangrene Injury/Trauma or Illness?:Illness/Other How long have you had these symptoms (acute/chronic)?:Unknown History of cancer?:unk Surgeries, chemotherapy, or radiation?:unk Type of Exam?:Unknown Additional signs and symptoms?:Left foot gangrene Albuminon 09-20-2018 Albumin mass conc 3.3 g/dL 3.2 - 5.2 g/dL [facility] Interpretation and review of laboratory results Normal [facility] Otheron 09-20-2018 No acute osseous abnormalities identified. Status post remote ORIF of the distal fibula. Extensive vascular calcifications. [employer] Workstation ID: [id number] [facility] EXAMINATION: XR FOOT LEFT 3+ [...] lesions or bony demineralization. Extensive vascular calcifications. [facility] Interface, Rad In Fu ji [...] of the distal fibula. Extensive vascular calcifications. [employer] Workstation ID: [id number] [facility] Interpretation and review of laboratory results Abnormal [facility] Prealbuminon 09-20-2018 Prealbumin mass conc 16.7 mg/dL Low 20 - 40 mg/dL [facility] [employer],Totalon 09-20-2018 Protein mass conc 5.9 g/dL Low 6 - 8 g/dL [facility] Basic Metabolic Panelon 08-28 Anion gap molar conc 12 mmol/L 10 - 20 mmol/L [facility] Calcium mass conc 8.9 mg/dL 8.4 - 10.2 mg/dL [facility] Chloride molar conc 101 mmol/L 98 - 108 mmol/L [facility] Creatinine mass conc 0.56 mg/dL Low 0.8 - 1 .3 mg/dL [facility] GFR/1.73 sq M predicted among non-blacks MDRD vol rate/area (S/P/Bld) The eGFR should be used for monitoring renal function only and not for medication dosing. [facility] GFR/1.73 sq M.predicted CKD-EPI vol rate/area (S/P/Bld) 98 >=60 mL/min/1.73 m2 [facility] Glucose mass conc 117 mg/dL High 65 - 99 mg/dL [facility] HCO3 molar conc 24 mmol/L 21 - 32 mmol/L [facility] Interpretation and review of laboratory results Abnormal [facility] Potassium molar conc 4.0 mmol/L 3.5 - 5 .1 mmol/L [facility] Sodium molar conc 133 mmol/L Low 135 - 145 mmol/L [facility] [facility] Urea nitrogen mass conc 12 mg/dL 8 - 25 mg/dL [facility] Urea nitrogen/Creatinine mass ratio 21.4 mg/mg High [facility] CBCon 09-13-2018 Erythrocyte distribution width Entitic volume (RBC) 14.1 % 11.6 - 14.8 % [facility] Hematocrit Volume Fraction (Bld) 25.4 % Low 41 - 53 % [facility] Hemoglobin mass conc (Bld) 8.6 g/dL Low 13.5 - 17.5 g/dL [facility] Interpretation and review of laboratory results Abnormal [facility] MCH Entitic mass (RBC) 31.2 pg 26 - 34 pg [facility] MCHC mass conc (RBC) 33.9 g/dL 31 - 37 g/dL [facility] Comment on above: Cold Agglutinin pres ent MCV Entitic volume (RBC) 92.0 fL 80 - 100 fL [facility] Nucleated RBC #/vol (Bld) 0.00 10*3/uL [facility] Nucleated RBC/100 WBC Ratio (Bld) 0.0 % [facility] Platelet mean volume Entitic volume (Bld) 10.0 fL 9 - 15.5 fL [facility] Platelets #/vol (Bld) 258 10*3/uL [facility] RBC #/vol (Bld) 2.76 10*6/uL Low [facility] WBC #/vol (Bld) 9.14 10*3/uL [facility] Hemoglobin and Hematocriton 09-13-2018 Hematocrit Volume Fraction (Bld) 24.1 % Low 41 - 53 % [facility] Hemoglobin mass conc (Bld) 7.7 g/dL Low 13.5 - 17.5 g/dL [facility] Interpretation and review of laboratory results Abnormal [facility] PT/INRon 09-13-2018 INR Coag RelTime (PPP) 1.2 {INR} [facility] Interpretation and review of laboratory results Abnormal [facility] Prothrombin time (PT) Coag time (PPP) 14.9 s [facility] During the induction phase of oral anticoagulation, the INR may not reflect the anticoagulation status of the patient. Therapeutic ranges for INR's are: Most clinical situations: INR 2.0-3.0 Mechanical Prosthetic Valve: INR 2.5-3.5 Critical: INR >5.0 [facility] Basic Metabolic Panelon 08-28 Anion gap molar conc 11 mmol/L 10 - 20 mmol/L [facility] Calcium mass conc 8.6 mg/dL 8.4 - 10.2 mg/dL [facility] Chloride molar conc 97 mmol/L Low 98 - 108 mmol/L [facility] Creatinine mass conc 0.78 mg/dL Low 0.8 - 1 .3 mg/dL [facility] GFR/1.73 sq M predicted among non-blacks MDRD vol rate/area (S/P/Bld) The eGFR should be used for monitoring renal function only and not for medication dosing. [facility] GFR/1.73 sq M.predicted CKD-EPI vol rate/area (S/P/Bld) 86 >=60 mL/min/1.73 m2 [facility] Glucose mass conc 142 mg/dL High 65 - 99 mg/dL [facility] HCO3 molar conc 26 mmol/L 21 - 32 mmol/L [facility] Interpretation and review of laboratory results Abnormal [facility] Potassium molar conc 4.7 mmol/L 3.5 - 5 .1 mmol/L [facility] Sodium molar conc 129 mmol/L Low 135 - 145 mmol/L [facility] Urea nitrogen mass conc 12 mg/dL 8 - 25 mg/dL [facility] Urea nitrogen/Creatinine mass ratio 15.4 mg/mg [facility] CBCon 09-12-2018 Erythrocyte distribution width Entitic volume (RBC) 13.8 % 11.6 - 14.8 % [facility] Hematocrit Volume Fraction (Bld) 25.6 % Low 41 - 53 % [facility] Hemoglobin mass conc (Bld) 8.9 g/dL Low 13.5 - 17.5 g/dL [facility] Interpretation and review of laboratory results Abnormal [facility] MCH Entitic mass (RBC) 31.4 pg 26 - 34 pg [facility] MCHC mass conc (RBC) 34.8 g/dL 31 - 37 g/dL [facility] Comment on above: Cold Agglutinin pres ent MCV Entitic volume (RBC) 90.5 fL 80 - 100 fL [facility] Nucleated RBC #/vol (Bld) 0.00 10*3/uL [facility] Nucleated RBC/100 WBC Ratio (Bld) 0.0 % [facility] Platelet mean volume Entitic volume (Bld) 10.0 fL 9 - 15.5 fL [facility] Platelets #/vol (Bld) 272 10*3/uL [facility] RBC #/vol (Bld) 2.83 10*6/uL [facility] WBC #/vol (Bld) 10.20 10*3/uL [facility] alth While on heparin [facility] Erythrocyte distribution width Entitic volume (RBC) 14.1 % 11.6 - 14.8 % [facility] Hematocrit Volume Fraction (Bld) 24.2 % Low 41 - 53 % [facility] Hemoglobin mass conc (Bld) 8.2 g/dL Low 13.5 - 17.5 g/dL [facility] Interpretation and review of laboratory results Abnormal [facility] MCH Entitic mass (RBC) 30.5 pg 26 - 34 pg [facility] MCHC mass conc (RBC) 33.9 g/dL 31 - 37 g/dL [facility] Comment on above: Cold Agglutinin pres ent MCV Entitic volume (RBC) 90.0 fL 80 - 100 fL [facility] Nucleated RBC #/vol (Bld) 0.00 10*3/uL [facility] Nucleated RBC/100 WBC Ratio (Bld) 0.0 % [facility] Platelet mean volume Entitic volume (Bld) 9.8 fL 9 - 15.5 fL [facility] Platelets #/vol (Bld) 246 10*3/uL [facility] RBC #/vol (Bld) 2.69 10*6/uL Low [facility] WBC #/vol (Bld) 9.04 10*3/uL [facility] Hemoglobin and Hematocriton 09-12-2018 Hematocrit Volume Fraction (Bld) 20.5 % Low 41 - 53 % [facility] Hemoglobin mass conc (Bld) 8.1 g/dL Low 13.5 - 17.5 g/dL [facility] Comment on above: Peripheral smear rev iewed manually Interpretation and review of laboratory results Abnormal [facility] PT/INRon 09-12-2018 INR Coag RelTime (PPP) 1.2 {INR} High [facility] Interpretation and review of laboratory results Abnormal [facility] Prothrombin time (PT) Coag time (PPP) 14.6 s [facility] During the induction phase of oral anticoagulation, the INR may not reflect the anticoagulation status of the patient. Therapeutic ranges for INR's are: Most clinical situations: INR 2.0-3.0 Mechanical Prosthetic Valve: INR 2.5-3.5 Critical: INR >5.0 [facility] Basic Metabolic Panelon 08-28 Anion gap molar conc 15 mmol/L 10 - 20 mmol/L [facility] Calcium mass conc 8.9 mg/dL 8.4 - 10.2 mg/dL [facility] Chloride molar conc 95 mmol/L Low 98 - 108 mmol/L [facility] Creatinine mass conc 0.65 mg/dL Low 0.8 - 1 .3 mg/dL [facility] GFR/1.73 sq M predicted among non-blacks MDRD vol rate/area (S/P/Bld) The eGFR should be used for monitoring renal function only and not for medication dosing. [facility] GFR/1.73 sq M.predicted CKD-EPI vol rate/area (S/P/Bld) 93 >=60 mL/min/1.73 m2 [facility] Glucose mass conc 114 mg/dL High 65 - 99 mg/dL [facility] HCO3 molar conc 26 mmol/L 21 - 32 mmol/L [facility] Interpretation and review of laboratory results Abnormal [facility] Potassium molar conc 4.8 mmol/L 3.5 - 5 .1 mmol/L [facility] Comment on above: Slightly Hemolyzed Sodium molar conc 131 mmol/L Low 135 - 145 mmol/L [facility] Urea nitrogen mass conc 11 mg/dL 8 - 25 mg/dL [facility] Urea nitrogen/Creatinine mass ratio 16.9 mg/mg [facility] CBCon 09-11-2018 Erythrocyte distribution width Entitic volume (RBC) 13.3 % 11.6 - 14.8 % [facility] Hematocrit Volume Fraction (Bld) 24.4 % Low 41 - 53 % [facility] Hemoglobin mass conc (Bld) 8.1 g/dL Low 13.5 - 17.5 g/dL [facility] Interpretation and review of laboratory results Abnormal [facility] MCH Entitic mass (RBC) 30.5 pg 26 - 34 pg [facility] MCHC mass conc (RBC) 33.2 g/dL 31 - 37 g/dL [facility] Comment on above: Cold Agglutinin pres ent MCV Entitic volume (RBC) 91.7 fL 80 - 100 fL [facility] Nucleated RBC #/vol (Bld) 0.00 10*3/uL [facility] Nucleated RBC/100 WBC Ratio (Bld) 0.0 % [facility] Platelet mean volume Entitic volume (Bld) 9.8 fL 9 - 15.5 fL [facility] Platelets #/vol (Bld) 249 10*3/uL [facility] RBC #/vol (Bld) 2.66 10*6/uL Low [facility] WBC #/vol (Bld) 7.28 10*3/uL [facility] PREPARE RBCon 09-11-2018 ABO and Rh group Nom (Bld) O Pos [facility] ABO and Rh group Nom (Bld) 5100 [facility] Cross Match Compatible [facility] Protein mass conc Red Blood Cells [facility] Protein mass conc [id number] [facility] Status Info Transfused [facility] Unit Number [id number] [facility] PT/INRon 09-11-2018 INR Coag RelTime (PPP) 1.2 {INR} High [facility] Interpretation and review of laboratory results Abnormal [facility] Prothrombin time (PT) Coag time (PPP) 14.7 s [facility] During the induction phase of oral anticoagulation, the INR may not reflect the anticoagulation status of the patient. Therapeutic ranges for INR's are: Most clinical situations: INR 2.0-3.0 Mechanical Prosthetic Valve: INR 2.5-3.5 Critical: INR >5.0 [facility] Type and Screenon 09-11-2018 ABO and Rh group Nom (Bld) O Positive [facility] Blood group antibody screen Ql Negative [facility] Specimen Expires 09/14/2018 23:59 EST [facility] Basic Metabolic Panelon 08-28 Anion gap molar conc 13 mmol/L 10 - 20 mmol/L [facility] Calcium mass conc 8.9 mg/dL 8.4 - 10.2 mg/dL [facility] Chloride molar conc 99 mmol/L 98 - 108 mmol/L [facility] Creatinine mass conc 0.67 mg/dL Low 0.8 - 1 .3 mg/dL [facility] GFR/1.73 sq M predicted among non-blacks MDRD vol rate/area (S/P/Bld) The eGFR should be used for monitoring renal function only and not for medication dosing. [facility] GFR/1.73 sq M.predicted CKD-EPI vol rate/area (S/P/Bld) 91 >=60 mL/min/1.73 m2 [facility] Glucose mass conc 116 mg/dL High 65 - 99 mg/dL [facility] HCO3 molar conc 27 mmol/L 21 - 32 mmol/L [facility] Interpretation and review of laboratory results Abnormal [facility] Potassium molar conc 4.6 mmol/L 3.5 - 5 .1 mmol/L [facility] Sodium molar conc 134 mmol/L Low 135 - 145 mmol/L [facility] Urea nitrogen mass conc 12 mg/dL 8 - 25 mg/dL [facility] Urea nitrogen/Creatinine mass ratio 17.9 mg/mg [facility] CBCon 09-10-2018 Erythrocyte distribution width Entitic volume (RBC) 13.2 % 11.6 - 14.8 % [facility] Hematocrit Volume Fraction (Bld) 22.2 % Low 41 - 53 % [facility] Hemoglobin mass conc (Bld) 7.6 g/dL Low 13.5 - 17.5 g/dL [facility] Interpretation and review of laboratory results Abnormal [facility] MCH Entitic mass (RBC) 32.5 pg 26 - 34 pg [facility] MCHC mass conc (RBC) 34.2 g/dL 31 - 37 g/dL [facility] MCV Entitic volume (RBC) 94.9 fL 80 - 100 fL [facility] Nucleated RBC #/vol (Bld) 0.00 10*3/uL [facility] Nucleated RBC/100 WBC Ratio (Bld) 0.0 % [facility] Platelet mean volume Entitic volume (Bld) 9.3 fL 9 - 15.5 fL [facility] Platelets #/vol (Bld) 246 10*3/uL [facility] RBC #/vol (Bld) 2.34 10*6/uL Low [facility] WBC #/vol (Bld) 7.13 10*3/uL [facility] While on heparin [facility] Erythrocyte distribution width Entitic volume (RBC) 13.2 % 11.6 - 14.8 % [facility] Hematocrit Volume Fraction (Bld) 22.0 % Low 41 - 53 % [facility] Hemoglobin mass conc (Bld) 7.5 g/dL Low 13.5 - 17.5 g/dL [facility] Interpretation and review of laboratory results Abnormal [facility] MCH Entitic mass (RBC) 32.1 pg 26 - 34 pg [facility] MCHC mass conc (RBC) 34.1 g/dL 31 - 37 g/dL [facility] MCV Entitic volume (RBC) 94.0 fL 80 - 100 fL [facility] Nucleated RBC #/vol (Bld) 0.00 10*3/uL [facility] Nucleated RBC/100 WBC Ratio (Bld) 0.0 % [facility] Platelet mean volume Entitic volume (Bld) 9.2 fL 9 - 15.5 fL [facility] Platelets #/vol (Bld) 234 10*3/uL [facility] RBC #/vol (Bld) 2.34 10*6/uL Low [facility] WBC #/vol (Bld) 7.34 10*3/uL [facility] EKGon 09-10-2018 Ordered by an unspecified provider. [facility] PT/INRon 09-10-2018 INR Coag RelTime (PPP) 1.2 {INR} [facility] Interpretation and review of laboratory results Abnormal [facility] Prothrombin time (PT) Coag time (PPP) 14.4 s [facility] During the induction phase of oral anticoagulation, the INR may not reflect the anticoagulation status of the patient. Therapeutic ranges for INR's are: Most clinical situations: INR 2.0-3.0 Mechanical Prosthetic Valve: INR 2.5-3.5 Critical: INR >5.0 [facility] US Doppler ankle/brachial in dexon 09-10-2018 Non-Invasive Vascula r _ Patient: SHERRY Jones Rec#: [id number] (Age): 1940(78y) Study Date: 09/10/2018 Room#: 8506 Type: Inpatient Sex: M _ Reading: [place] Reading: Ben Hahn MD, RPVI Referring: Esau Alejandro Plant Production Manager: Andre Madrid RDCS/INOCENCIO Procedure Info: [id number] Study Quality: Lower Arterial Doppler: adequate _ Diagnosis: I73.9 Peripheral vascular disease, unspecified Lower Arterial Doppler _ Conclusions Right ankle brachial index indicates moderate [...] left foot. Toe brachial index is abnormal. _ The procedure was explained to the patient. [...] 09/10/2018 17:30:46 by: Ben Hahn MD, NATANAEL [facility] Interface, Rad In [facility] Echopacs - 09/10/2018 5:37 PM EST Non-Invasive Vascular _ Patient: SHERRY Bazan [facility] Rec#: [id number] (Age): 1940(78y) Study Date: 09/10/2018 Room#: 8506 Type: Inpatient Sex: M _ Reading: [place] Reading: Ben Hahn MD, JEOVANYVI Referring: Esau Alejandro Plant Production Manager: Andre Madrid RDCS/RVT Procedure Info: [id number] Study Quality: Lower Arterial Doppler: adequate _ Diagnosis: I73.9 Peripheral vascular disease, unspecified Lower Arterial Doppler _ Conclusions Right ankle brachial index indicates moderate [...] left foot. Toe brachial index is abnormal. _ The procedure was explained to the patient. [...] 09/10/2018 17:30:46 by: Ben Hahn MD, RPVI [facility] Basic Metabolic Panelon 08-28 Anion gap molar conc 12 mmol/L 10 - 20 mmol/L [facility] Calcium mass conc 8.9 mg/dL 8.4 - 10.2 mg/dL [facility] Chloride molar conc 99 mmol/L 98 - 108 mmol/L [facility] Creatinine mass conc 0.71 mg/dL Low 0.8 - 1 .3 mg/dL [facility] GFR/1.73 sq M predicted among non-blacks MDRD vol rate/area (S/P/Bld) The eGFR should be used for monitoring renal function only and not for medication dosing. [facility] GFR/1.73 sq M.predicted CKD-EPI vol rate/area (S/P/Bld) 89 >=60 mL/min/1.73 m2 [facility] Glucose mass conc 111 mg/dL High 65 - 99 mg/dL [facility] HCO3 molar conc 28 mmol/L 21 - 32 mmol/L [facility] Interpretation and review of laboratory results Abnormal [facility] Potassium molar conc 4.3 mmol/L 3.5 - 5 .1 mmol/L [facility] Sodium molar conc 135 mmol/L 135 - 145 mmol/L [facility] Urea nitrogen mass conc 13 mg/dL 8 - 25 mg/dL [facility] Urea nitrogen/Creatinine mass ratio 18.3 mg/mg [facility] CBCon 09-09-2018 Erythrocyte distribution width Entitic volume (RBC) 13.2 % 11.6 - 14.8 % [facility] Hematocrit Volume Fraction (Bld) 23.0 % Low 41 - 53 % [facility] Hemoglobin mass conc (Bld) 7.7 g/dL Low 13.5 - 17.5 g/dL [facility] Comment on above: Cold Agglutinin pres ent Interpretation and review of laboratory results Abnormal [facility] MCH Entitic mass (RBC) 30.4 pg 26 - 34 pg [facility] MCHC mass conc (RBC) 33.5 g/dL 31 - 37 g/dL [facility] MCV Entitic volume (RBC) 90.9 fL 80 - 100 fL [facility] Nucleated RBC #/vol (Bld) 0.00 10*3/uL [facility] Nucleated RBC/100 WBC Ratio (Bld) 0.0 % [facility] Platelet mean volume Entitic volume (Bld) 9.4 fL 9 - 15.5 fL [facility] Platelets #/vol (Bld) 207 10*3/uL [facility] RBC #/vol (Bld) 2.53 10*6/uL Low [facility] WBC #/vol (Bld) 6.48 10*3/uL [facility] Hemoglobin and Hematocriton 09-09-2018 Hematocrit Volume Fraction (Bld) 22.8 % Low 41 - 53 % [facility] Hemoglobin mass conc (Bld) 8.0 g/dL Low 13.5 - 17.5 g/dL [facility] Interpretation and review of laboratory results Abnormal [facility] Hematocrit Volume Fraction (Bld) 22.9 % Low 41 - 53 % [facility] Hemoglobin mass conc (Bld) 7.7 g/dL Low 13.5 - 17.5 g/dL [facility] Interpretation and review of laboratory results Abnormal [facility] PT/INRon 09-09-2018 INR Coag RelTime (PPP) 1.2 {INR} High [facility] Interpretation and review of laboratory results Abnormal [facility] Prothrombin time (PT) Coag time (PPP) 15.1 s [facility] During the induction phase of oral anticoagulation, the INR may not reflect the anticoagulation status of the patient. Therapeutic ranges for INR's are: Most clinical situations: INR 2.0-3.0 Mechanical Prosthetic Valve: INR 2.5-3.5 Critical: INR >5.0 [facility] Basic Metabolic Panelon 08-28 Anion gap molar conc 16 mmol/L 10 - 20 mmol/L [facility] Calcium mass conc 9.0 mg/dL 8.4 - 10.2 mg/dL [facility] Chloride molar conc 99 mmol/L 98 - 108 mmol/L [facility] Creatinine mass conc 0.56 mg/dL Low 0.8 - 1 .3 mg/dL [facility] GFR/1.73 sq M predicted among non-blacks MDRD vol rate/area (S/P/Bld) The eGFR should be used for monitoring renal function only and not for medication dosing. [facility] GFR/1.73 sq M.predicted CKD-EPI vol rate/area (S/P/Bld) 98 >=60 mL/min/1.73 m2 [facility] Glucose mass conc 189 mg/dL High 65 - 99 mg/dL [facility] HCO3 molar conc 23 mmol/L 21 - 32 mmol/L [facility] Interpretation and review of laboratory results Abnormal [facility] Potassium molar conc 4.5 mmol/L 3.5 - 5 .1 mmol/L [facility] Sodium molar conc 133 mmol/L Low 135 - 145 mmol/L [facility] Urea nitrogen mass conc 8 mg/dL 8 - 25 mg/dL [facility] Urea nitrogen/Creatinine mass ratio 14.3 mg/mg [facility] CBCon 09-08-2018 Erythrocyte distribution width Entitic volume (RBC) 12.9 % 11.6 - 14.8 % [facility] Hematocrit Volume Fraction (Bld) 29.9 % Low 41 - 53 % [facility] Hemoglobin mass conc (Bld) 10.0 g/dL Low 13.5 - 17.5 g/dL [facility] Interpretation and review of laboratory results Abnormal [facility] MCH Entitic mass (RBC) 30.3 pg 26 - 34 pg [facility] MCHC mass conc (RBC) 33.4 g/dL 31 - 37 g/dL [facility] Comment on above: Cold Agglutinin pres ent MCV Entitic volume (RBC) 90.6 fL 80 - 100 fL [facility] Nucleated RBC #/vol (Bld) 0.00 10*3/uL [facility] Nucleated RBC/100 WBC Ratio (Bld) 0.0 % [facility] Platelet mean volume Entitic volume (Bld) 10.5 fL 9 - 15.5 fL [facility] Platelets #/vol (Bld) 209 10*3/uL [facility] RBC #/vol (Bld) 3.30 10*6/uL [facility] WBC #/vol (Bld) 11.23 10*3/uL [facility] alth PT/INRon 09-08-2018 INR Coag RelTime (PPP) 1.2 {INR} [facility] Interpretation and review of laboratory results Abnormal [facility] Prothrombin time (PT) Coag time (PPP) 14.9 s [facility] During the induction phase of oral anticoagulation, the INR may not reflect the anticoagulation status of the patient. Therapeutic ranges for INR's are: Most clinical situations: INR 2.0-3.0 Mechanical Prosthetic Valve: INR 2.5-3.5 Critical: INR >5.0 [facility] XR Fluoroscopy Timeon 2018 This is an auto finalized result. Please refer to patient chart for further information. [facility] XR OR Angio Addon 09-08-2018 This is an auto finalized result. Please refer to patient chart for further information. [facility] APTTon 09-07-2018 aPTT Coag time (Bld) 74 s [facility] aPTT Coag time (Bld) Therapeutic range f or APTT's is 68 - 104 seconds [facility] Interpretation and review of laboratory results Abnormal [facility] aPTT Coag time (Bld) 47 s High [facility] aPTT Coag time (Bld) Therapeutic range f or APTT's is 68 - 104 seconds [facility] aPTT Coag time (Bld) 38 s High [facility] aPTT Coag time (Bld) Results checked. Therapeutic range for APTT's is 68 - 104 seconds [facility] Interpretation and review of laboratory results Abnormal [facility] Basic Metabolic Panelon 08-28 Anion gap molar conc 15 mmol/L 10 - 20 mmol/L [facility] Calcium mass conc 9.4 mg/dL 8.4 - 10.2 mg/dL [facility] Chloride molar conc 99 mmol/L 98 - 108 mmol/L [facility] Creatinine mass conc 0.69 mg/dL Low 0.8 - 1 .3 mg/dL [facility] GFR/1.73 sq M predicted among non-blacks MDRD vol rate/area (S/P/Bld) The eGFR should be used for monitoring renal function only and not for medication dosing. [facility] GFR/1.73 sq M.predicted CKD-EPI vol rate/area (S/P/Bld) 90 >=60 mL/min/1.73 m2 [facility] Glucose mass conc 110 mg/dL High 65 - 99 mg/dL [facility] HCO3 molar conc 25 mmol/L 21 - 32 mmol/L [facility] Interpretation and review of laboratory results Abnormal [facility] Potassium molar conc 4.0 mmol/L 3.5 - 5 .1 mmol/L [facility] Sodium molar conc 135 mmol/L 135 - 145 mmol/L [facility] Urea nitrogen mass conc 9 mg/dL 8 - 25 mg/dL [facility] Urea nitrogen/Creatinine mass ratio 13.0 mg/mg [facility] CBCon 09-07-2018 Erythrocyte distribution width Entitic volume (RBC) 12.9 % 11.6 - 14.8 % [facility] Hematocrit Volume Fraction (Bld) 31.6 % Low 41 - 53 % [facility] Hemoglobin mass conc (Bld) 10.8 g/dL Low 13.5 - 17.5 g/dL [facility] Interpretation and review of laboratory results Abnormal [facility] MCH Entitic mass (RBC) 30.9 pg 26 - 34 pg [facility] MCHC mass conc (RBC) 34.2 g/dL 31 - 37 g/dL [facility] Comment on above: Cold Agglutinin pres ent MCV Entitic volume (RBC) 90.3 fL 80 - 100 fL [facility] Nucleated RBC #/vol (Bld) 0.00 10*3/uL [facility] Nucleated RBC/100 WBC Ratio (Bld) 0.0 % [facility] Platelet mean volume Entitic volume (Bld) 10.1 fL 9 - 15.5 fL [facility] Platelets #/vol (Bld) 212 10*3/uL [facility] RBC #/vol (Bld) 3.50 10*6/uL Low [facility] WBC #/vol (Bld) 5.93 10*3/uL [facility] Otheron 09-07-2018 Interpretation and review of laboratory results Abnormal [facility] PT/INRon 09-07-2018 INR Coag RelTime (PPP) 1.2 {INR} High [facility] Prothrombin time (PT) Coag time (PPP) 14.7 s High [facility] During the induction phase of oral anticoagulation, the INR may not reflect the anticoagulation status of the patient. Therapeutic ranges for INR's are: Most clinical situations: INR 2.0-3.0 Mechanical Prosthetic Valve: INR 2.5-3.5 Critical: INR >5.0 [facility] XR Chest 1 Viewon 09-07-2018 Interface, Rad In Fu ji Speechq - 09/07/2018 9:53 AM EST EXAMINATION: AP CHEST HISTORY: Hypoxia. COMPARISON: 08/01/[address] [facility]. 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 Coronary artery stents are visualized. Minimal linear scarring at the lung bases, unchanged. No pneumothorax. No definite pleural effusion no new opacities. IMPRESSION: Stable chest. No acute disease. [employer] Workstation ID: [id number] [facility] EXAMINATION: AP CHES T HISTORY: Hypoxia. COMPARISON: 08/01/[address] [facility]. 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 Coronary artery stents are visualized. Minimal linear scarring at the lung bases, unchanged. No pneumothorax. No definite pleural effusion no new opacities. [facility] Stable chest. No acu te disease. [employer] Workstation ID: [id number] [facility] ABORH VERIFICATIONon 019 ABO and Rh group Nom (Bld) O Positive [facility] ABO and Rh group Nom (Bld) ABO/Rh Verification [facility] Patient's ABO/Rh is verified. [facility] Basic Metabolic Panelon 08-28 Anion gap molar conc 13 mmol/L 10 - 20 mmol/L [facility] Calcium mass conc 9.5 mg/dL 8.4 - 10.2 mg/dL [facility] Chloride molar conc 101 mmol/L 98 - 108 mmol/L [facility] Creatinine mass conc 0.68 mg/dL Low 0.8 - 1 .3 mg/dL [facility] GFR/1.73 sq M predicted among non-blacks MDRD vol rate/area (S/P/Bld) The eGFR should be used for monitoring renal function only and not for medication dosing. [facility] GFR/1.73 sq M.predicted CKD-EPI vol rate/area (S/P/Bld) 91 >=60 mL/min/1.73 m2 [facility] Glucose mass conc 98 mg/dL 65 - 99 mg/dL [facility] HCO3 molar conc 27 mmol/L 21 - 32 mmol/L [facility] Interpretation and review of laboratory results Abnormal [facility] Potassium molar conc 4.2 mmol/L 3.5 - 5 .1 mmol/L [facility] Sodium molar conc 137 mmol/L 135 - 145 mmol/L [facility] Urea nitrogen mass conc 9 mg/dL 8 - 25 mg/dL [facility] Urea nitrogen/Creatinine mass ratio 13.2 mg/mg [facility] CBCon 09-06-2018 Erythrocyte distribution width Entitic volume (RBC) 13.1 % 11.6 - 14.8 % [facility] Hematocrit Volume Fraction (Bld) 30.7 % Low 41 - 53 % [facility] Hemoglobin mass conc (Bld) 10.4 g/dL Low 13.5 - 17.5 g/dL [facility] Interpretation and review of laboratory results Abnormal [facility] MCH Entitic mass (RBC) 31.0 pg 26 - 34 pg [facility] MCHC mass conc (RBC) 33.9 g/dL 31 - 37 g/dL [facility] Comment on above: Cold Agglutinin pres ent MCV Entitic volume (RBC) 91.6 fL 80 - 100 fL [facility] Nucleated RBC #/vol (Bld) 0.00 10*3/uL [facility] Nucleated RBC/100 WBC Ratio (Bld) 0.0 % [facility] Platelet mean volume Entitic volume (Bld) 9.9 fL 9 - 15.5 fL [facility] Platelets #/vol (Bld) 209 10*3/uL [facility] RBC #/vol (Bld) 3.35 10*6/uL Low [facility] WBC #/vol (Bld) 6.34 10*3/uL [facility] While on heparin [facility] Erythrocyte distribution width Entitic volume (RBC) 12.6 % 11.6 - 14.8 % [facility] Hematocrit Volume Fraction (Bld) 32.0 % Low 41 - 53 % [facility] Hemoglobin mass conc (Bld) 10.7 g/dL Low 13.5 - 17.5 g/dL [facility] Comment on above: Peripheral smear rev iewed manually Interpretation and review of laboratory results Abnormal [facility] MCH Entitic mass (RBC) 29.9 pg 26 - 34 pg [facility] MCHC mass conc (RBC) 33.4 g/dL 31 - 37 g/dL [facility] Comment on above: Cold Agglutinin pres ent MCV Entitic volume (RBC) 89.4 fL 80 - 100 fL [facility] Nucleated RBC #/vol (Bld) 0.00 10*3/uL [facility] Nucleated RBC/100 WBC Ratio (Bld) 0.0 % [facility] Platelet mean volume Entitic volume (Bld) 9.6 fL 9 - 15.5 fL [facility] Platelets #/vol (Bld) 232 10*3/uL [facility] RBC #/vol (Bld) 3.58 10*6/uL Low [facility] WBC #/vol (Bld) 7.03 10*3/uL [facility] Saphenous vein mappingchace 09-06-2018 Interface, Rad In Heartlab Xper Echopacs - 09/06/2018 11:52 AM EST Non-Invasive Vascular _ Patient: SHERRY TRISTIN Jones Rec#: [id number] (Age): 1940(78y) Study Date: 09/06/2018 Room#: 3386 Type: Inpatient Sex: M _ Reading: Manuel Leonard MD, RPVI, RVT Referring: ARISTEO Plant Production Manager: Conrad Jeffers, KIRILL, RVT Procedure Info: [id number] Study Quality: Lower Vein Map: limited Study Limitations: Lower Vein Map: The exam was technically difficult due to patient positioning. _ Diagnosis: I73.9 Peripheral vascular disease, unspecified Lower Vein Map _ Conclusions Patent and compressible great saphenous (GSV) vein bilaterally with measurements listed below. The left GSV from the proximal thigh to knee was previously harvested for CABG. _ The procedure was explained to the patient. [...] 11:49:41 by: Manuel Leonard MD, RPVI, INOCENCIO [facility] Non-Invasive Vascula r _ Patient: SHERRY Bazan [facility] Rec#: [id number] (Age): 1940(78y) Study Date: 09/06/2018 Room#: 3386 Type: Inpatient Sex: M _ Reading: Manuel Leonard MD, NATANAEL, INOCENCIO Referring: ARISTEO Plant Production Manager: Conrad Jeffers RDCS, RVT Procedure Info: [id number] Study Quality: Lower Vein Map: limited Study Limitations: Lower Vein Map: The exam was technically difficult due to patient positioning. _ Diagnosis: I73.9 Peripheral vascular disease, unspecified Lower Vein Map _ Conclusions Patent and compressible great saphenous (GSV) vein bilaterally with measurements listed below. The left GSV from the proximal thigh to knee was previously harvested for CABG. _ The procedure was explained to the patient. [...] 11:49:41 by: Manuel Leonard MD, RPVI, RVT [facility] Type and Screenon 09-06-2018 ABO and Rh group Nom (Bld) O Positive [facility] Blood group antibody screen Ql Negative [facility] Specimen Expires 09/09/2018 23:59 EST [facility] APTTon 09-05-2018 aPTT Coag time (Bld) Therapeutic range f or APTT's is 68 - 104 seconds [facility] aPTT Coag time (Bld) 59 s [facility] Interpretation and review of laboratory results Abnormal [facility] aPTT Coag time (Bld) 50 s High [facility] aPTT Coag time (Bld) Therapeutic range f or APTT's is 68 - 104 seconds [facility] Basic Metabolic Panelon Anion gap molar conc 14 mmol/L 10 - 20 mmol/L [facility] Calcium mass conc 9.3 mg/dL 8.4 - 10.2 mg/dL [facility] Chloride molar conc 102 mmol/L 98 - 108 mmol/L [facility] Creatinine mass conc 0.65 mg/dL Low 0.8 - 1 .3 mg/dL [facility] GFR/1.73 sq M predicted among non-blacks MDRD vol rate/area (S/P/Bld) The eGFR should be used for monitoring renal function only and not for medication dosing. [facility] GFR/1.73 sq M.predicted CKD-EPI vol rate/area (S/P/Bld) 93 >=60 mL/min/1.73 m2 [facility] Glucose mass conc 91 mg/dL 65 - 99 mg/dL [facility] HCO3 molar conc 25 mmol/L 21 - 32 mmol/L [facility] Potassium molar conc 3.9 mmol/L 3.5 - 5 .1 mmol/L [facility] Sodium molar conc 137 mmol/L 135 - 145 mmol/L [facility] Urea nitrogen mass conc 6 mg/dL Low 8 - 25 mg/dL [facility] Urea nitrogen/Creatinine mass ratio 9.2 mg/mg Low [facility] CARDIAC CATHETERIZATIONon Interface, Rad In Heartlab Xper Echopacs - 09/05/2018 4:14 PM EST Patient Name: TRISTIN POWELL Date of : 1940 Procedure Date: 09/05/2018 Physician(s): Ben Hahn MD Cath #: [id number] Ref. 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 Dyslipidemia: Yes Hypertension: Yes Pre-OP Diagnosis/Indication: [place] Class/Limb Ischemia: 4 - Ischemic rest pain [...] vs major amputation COMMENTS: No Complications ____ ____ Equipment: Sheath(s) Ludia 5F 10CM PINNACLE SHEATH [employer] MEDICAL 6F 45CM .038 FLEXOR CHECKFLO ANSEL1 SHEATH Wire(s) [employer] .035 X 150CM FIXED J WIRE Catheter(s) [employer] 5F MP TEMPO AQUA CATHETER Other Aisle50 .035 CXI ANGLED SUPPORT CATHETERS SHER VASCULAR 6F PROGLIDE CLOSURE Peripheral Angiography: Access site: Femoral Right Retrograde arterial with ultrasound guidance Non Selective: Aorta with ilio-fem runoff Selective: Tibioperoneal artery, retrograde - left See Nursing Notes for further details ___ Signed By eBn Hahn MD On 09/05/2018 3:50:45 PM Ben Hahn MD ____ ____ [facility] Patient Name: TRISTIN POWELL Date of : 1940 Procedure Date: 09/05/2018 Physician(s): Ben Hahn MD Cath #: [id number] Ref. 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 Dyslipidemia: Yes Hypertension: Yes Pre-OP Diagnosis/Indication: Deann [...] vs major amputation COMMENTS: No Complications ____ ____ Equipment: Sheath(s) Ludia 5F 10CM PINNACLE SHEATH Aisle50 6F 45CM .038 FLEXOR CHECKFLO ANSEL1 SHEATH Wire(s) [employer] .035 X 150CM FIXED J WIRE Catheter(s) [employer] 5F MP TEMPO AQUA CATHETER Other Aisle50 .035 CXI ANGLED SUPPORT CATHETERS SHER VASCULAR 6F PROGLIDE CLOSURE Peripheral Angiography: Access site: Femoral Right Retrograde arterial with ultrasound guidance Non Selective: Aorta with ilio-fem runoff Selective: Tibioperoneal artery, retrograde - left See Nursing Notes for further details ___ Signed By Ben Hahn MD On 09/05/2018 3:50:45 PM Ben Hahn MD ____ ____ [facility] CBCon 09-05-2018 Erythrocyte distribution width Entitic volume (RBC) 12.8 % 11.6 - 14.8 % [facility] Hematocrit Volume Fraction (Bld) 31.8 % Low 41 - 53 % [facility] Hemoglobin mass conc (Bld) 10.7 g/dL Low 13.5 - 17.5 g/dL [facility] Interpretation and review of laboratory results Abnormal [facility] MCH Entitic mass (RBC) 30.5 pg 26 - 34 pg [facility] MCHC mass conc (RBC) 33.6 g/dL 31 - 37 g/dL [facility] MCV Entitic volume (RBC) 90.6 fL 80 - 100 fL [facility] Nucleated RBC #/vol (Bld) 0.00 10*3/uL [facility] Nucleated RBC/100 WBC Ratio (Bld) 0.0 % [facility] Platelet mean volume Entitic volume (Bld) 9.2 fL 9 - 15.5 fL [facility] Platelets #/vol (Bld) 224 10*3/uL [facility] RBC #/vol (Bld) 3.51 10*6/uL Low [facility] WBC #/vol (Bld) 5.56 10*3/uL [facility] ECG 12-LEADon 09-05-2018 Atrial Rate 88 BPM [facility] P [place] 48 degrees [facility] P-R Interval 134 ms [facility] Q-T Interval 392 ms [facility] QRS Duration 98 ms [facility] QTC Calculation (Bezet) 474 ms [facility] R [place] 50 degrees [facility] T [place] 61 degrees [facility] Ventricular Rate 88 BPM [facility] Normal sinus rhythm Nonspecific ST and T wave abnormality Abnormal ECG Confirmed by CHAYO TIDWELL MD ([id number]) on 09/05/2018 7:19:56 PM [facility] Atrial Rate 94 BPM [facility] P [place] 0 degrees [facility] P-R Interval 166 ms [facility] Q-T Interval 386 ms [facility] QRS Duration 94 ms [facility] QTC Calculation (Bezet) 482 ms [facility] R [place] 41 degrees [facility] T [place] 46 degrees [facility] Ventricular Rate 94 BPM [facility] th Normal sinus rhythm Prolonged QT Abnormal ECG Confirmed by CHAYO TIDWELL MD ([id number]) on 09/05/2018 6:55:30 PM [facility] Otheron 09-05-2018 Interpretation and review of laboratory results Abnormal [facility] Ultrasound duplex arterial l eg lefton 09-05-2018 Non-Invasive Vascula r _ Patient: SHERRY Bazan [facility] Rec#: [id number] (Age): 1940(78y) Study Date: 09/05/2018 Room#: G93 Type: Inpatient Sex: M _ Reading: Pierce Moreau DO, RPVI Referring: LEVY Plant Production Manager: Rima Celestin RDCS, RVT Plant Production Manager: Deena Pelayo RDCS RVT Procedure Info: [id number] Study Quality: Lower Arterial Duplex: adequate _ Diagnosis: I73.9 Peripheral vascular disease, unspecified Lower Arterial Duplex _ Conclusions Occluded stent noted in the left distal superficial femoral artery and popliteal artery. 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 Unable to adequately image runoff vessels due to patient's movement and intolerance to exam. _ Findings Left external iliac artery: calcific plaque present. Left common femoral artery: heterogenous plaque present. The procedure was explained to the patient. The patient voiced understanding. Measurements Left PSV Name Value Units EIA 83.2 cm/sec ODD JOB WORKER 95.6 cm/sec Profunda 85.5 cm/sec SFA - prox -25 cm/sec SFA - mid -67.2 cm/sec SFA - dist 58.2 cm/sec Popliteal - dist 0 cm/sec SNATH HANDLE ASSEMBLER 6.8 cm/sec Pre Stenosis #1 9.3 cm/sec Within Stenosis #1 67.2 cm/sec Distal Stenois #1 58.2 cm/sec Left Stent #1 Name Value Units Pre 58.2 cm/sec Orig/Prox 0 cm/sec Mid 0 cm/sec Dist 0 cm/sec Distal To 6.8 cm/sec Electronically signed at 09/05/2018 11:55:51 by: Pierce Moreau DO, RPVI [facility], Rad In Heartlab Xper Echopacs - 09/05/2018 12:10 PM EST Non-Invasive Vascular _ Patient: SHERRY Jones Rec#: [id number] (Age): 1940(78y) Study Date: 09/05/2018 Room#: G93 Type: Inpatient Sex: M _ Reading: Pierce Moreau DO, RPVI Referring: LEVY Plant Production Manager: Rima Celestin RD, RVT Plant Production Manager: Deena Pelayo RDCS RVT Procedure Info: [id number] Study Quality: Lower Arterial Duplex: adequate _ Diagnosis: I73.9 Peripheral vascular disease, unspecified Lower Arterial Duplex _ Conclusions Occluded stent noted in the left distal superficial femoral artery and popliteal artery. 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 Unable to adequately image runoff vessels due to patient's movement and intolerance to exam. _ Findings Left external iliac artery: calcific plaque present. Left common femoral artery: heterogenous plaque present. The procedure was explained to the patient. The patient voiced understanding. Measurements Left PSV Name Value Units EIA 83.2 cm/sec ODD JOB WORKER 95.6 cm/sec Profunda 85.5 cm/sec SFA - prox -25 cm/sec SFA - mid -67.2 cm/sec SFA - dist 58.2 cm/sec Popliteal - dist 0 cm/sec SNATH HANDLE ASSEMBLER 6.8 cm/sec Pre Stenosis #1 9.3 cm/sec Within Stenosis #1 67.2 cm/sec Distal Stenois #1 58.2 cm/sec Left Stent #1 Name Value Units Pre 58.2 cm/sec Orig/Prox 0 cm/sec Mid 0 cm/sec Dist 0 cm/sec Distal To 6.8 cm/sec Electronically signed at 09/05/2018 11:55:51 by: Pierce Moreau DO, NATANAEL [facility] APTTon 09-04-2018 aPTT Coag time (Bld) 59 s High [facility] aPTT Coag time (Bld) Therapeutic range f or APTT's is 68 - 104 seconds [facility] Interpretation and review of laboratory results Abnormal [facility] CBCon 09-04-2018 Erythrocyte distribution width Entitic volume (RBC) 12.8 % 11.6 - 14.8 % [facility] Hematocrit Volume Fraction (Bld) 33.3 % Low 41 - 53 % [facility] Hemoglobin mass conc (Bld) 11.2 g/dL Low 13.5 - 17.5 g/dL [facility] Interpretation and review of laboratory results Abnormal [facility] MCH Entitic mass (RBC) 30.2 pg 26 - 34 pg [facility] MCHC mass conc (RBC) 33.6 g/dL 31 - 37 g/dL [facility] Comment on above: Cold Agglutinin pres ent MCV Entitic volume (RBC) 89.8 fL 80 - 100 fL [facility] Nucleated RBC #/vol (Bld) 0.00 10*3/uL [facility] Nucleated RBC/100 WBC Ratio (Bld) 0.0 % [facility] Platelet mean volume Entitic volume (Bld) 10.1 fL 9 - 15.5 fL [facility] Platelets #/vol (Bld) 222 10*3/uL [facility] Comment on above: Peripheral smear rev iewed manually RBC #/vol (Bld) 3.71 10*6/uL Low [facility] WBC #/vol (Bld) 6.36 10*3/uL [facility] While on heparin [facility] Other 09-04-2018 Extra Tube Hold for add-ons. [facility] Comment on above: Auto resulted. XR COMPARISON IMPORTon 09-04 This order has been auto-finalized and does not contain a result. [facility] Vital Signs Date Time Vital Sign Value Performing Clinician Facility 05-13-2025 07:29-0400 Body temperature 97.5 [degF] Rafaela Garcia MD Work Phone: [facility] 05-13-2025 07:29-0400 Diastolic blood pressure 68 mm[Hg] Rafaela Garcia MD Work Phone: [facility] 05-13-2025 07:29-0400 Heart rate 72 /min Rafaela Garcia MD Work Phone: [facility] 05-13-2025 07:29-0400 Respiratory rate 18 /min Rafaela Garcia MD Work Phone: [facility] 05-13-2025 07:29-0400 SaO2% (BldA) [Mass fraction] 96 % Rafaela Garcia MD Work Phone: [facility] 05-13-2025 07:29-0400 Systolic blood pressure 150 mm[Hg] Rafaela Garcia MD Work Phone: [phone] [address] 05-09-2025 14:00-0400 Body height 188 cm Rafaela Garcia MD Work Phone: [phone] [address] 05-09-2025 14:00-0400 Body mass index (BMI) [Ratio] 30.81 kg/m2 Rafaela Garcia MD Work Phone: [facility] 05-09-2025 14:00-0400 Body weight 108.86 kg Rafaela Garcia MD Work Phone: [facility] 05-08-2025 20:42-0400 Heart rate 84 /min Flash Loevlace MD Work Phone: [facility] 05-08-2025 20:42-0400 Respiratory rate 20 /min Flash Lovelace MD Work Phone: [facility] 05-08-2025 20:00-0400 Body temperature 98 [degF] Flash Lovelace MD Work Phone: [facility] 05-08-2025 20:00-0400 Diastolic blood pressure 65 mm[Hg] Flash Lovelace MD Work Phone: [facility] 05-08-2025 20:00-0400 SaO2% (BldA) [Mass fraction] 94 % Flash Lovelace MD Work Phone: [facility] 05-08-2025 20:00-0400 Systolic blood pressure 141 mm[Hg] Flash Lovelace MD Work Phone: [facility] 05-07-2025 20:00-0400 Inhaled oxygen flow rate 2 L/min Flash Lovelace MD Work Phone: [facility] 05-07-2025 06:00-0400 Body weight 111 kg Flash Lovelace MD Work Phone: [facility] 05-06-2025 14:10-0400 Body height 187.96 cm Flash Lovelace MD Work Phone: [facility] 05-06-2025 05:35-0400 Inhaled oxygen concentration 45 % Flash Lovelace MD Work Phone: [facility] 05-02-2025 16:00-0400 Diastolic blood pressure 77 mm[Hg] Flash Lovelace MD Work Phone: [facility] 05-02-2025 16:00-0400 Heart rate 75 /min Flash Lovelace MD Work Phone: [facility] 05-02-2025 16:00-0400 Respiratory rate 22 /min Flash Lovelace MD Work Phone: [facility] 05-02-2025 16:00-0400 Systolic blood pressure 171 mm[Hg] Flash Lovelace MD Work Phone: [facility] 05-02-2025 15:00-0400 SaO2% (BldA) [Mass fraction] 95 % Flash Lovelace MD Work Phone: [facility] 05-02-2025 14:23-0400 Body height 187.96 cm Flash Lovelace MD Work Phone: [facility] 05-02-2025 14:23-0400 Body temperature 97.6 [degF] Flash Lovelace MD Work Phone: [facility] 05-02-2025 14:23-0400 Body weight 111.13 kg Flash Lovelace MD Work Phone: [facility] 05-02-2025 13:04-0400 Body height 188 cm Zoë Hemmer PA Work Phone: [facility] 05-02-2025 13:04-0400 Body mass index (BMI) [Ratio] 31.74 kg/m2 Zoë Hemmer PA Work Phone: [facility] 05-02-2025 13:04-0400 Body temperature 98.6 [degF] Zoë Hemmer PA Work Phone: [facility] 05-02-2025 13:04-0400 Body weight 112.13 kg Zoë Hemmer PA Work Phone: [facility] 05-02-2025 13:04-0400 Diastolic blood pressure 72 mm[Hg] Zoë Hemmer PA Work Phone: [facility] 05-02-2025 13:04-0400 Heart rate 81 /min Zoë Hemmer PA Work Phone: [facility] 05-02-2025 13:04-0400 Respiratory rate 20 /min Zoë Hemmer PA Work Phone: [facility] 05-02-2025 13:04-0400 SaO2% (BldA) [Mass fraction] 93 % Zoë Hemmer PA Work Phone: [facility] 05-02-2025 13:04-0400 Systolic blood pressure 132 mm[Hg] Zoë Hemmer PA Work Phone: [facility] 04-23-2025 14:36-0400 Diastolic blood pressure 72 mm[Hg] Mohsen Sarabia MD Work Phone: [facility] 04-23-2025 14:36-0400 Heart rate 64 /min Mohsen Sarabia MD Work Phone: [facility] 04-23-2025 14:36-0400 Systolic blood pressure 162 mm[Hg] Mohsen Sarabia MD Work Phone: [facility] 04-23-2025 14:30-0400 Body height 188 cm Mohsen Sarabia MD Work Phone: [facility] 04-23-2025 14:30-0400 Body mass index (BMI) [Ratio] 31.46 kg/m2 Mohsen Sarabia MD Work Phone: [facility] 04-23-2025 14:30-0400 Body weight 111.13 kg Mohsen Sarabia MD Work Phone: [facility] 04-23-2025 14:30-0400 Respiratory rate 16 /min Mohsen Sarabia MD Work Phone: [facility] 04-23-2025 14:30-0400 SaO2% (BldA) [Mass fraction] 97 % Mohsen Sarabia MD Work Phone: [facility] 04-14-2025 13:27-0400 Body height 188 cm Flash Lovelace MD Work Phone: [facility] 04-14-2025 13:27-0400 Body mass index (BMI) [Ratio] 30.94 kg/m2 Flash Lovelace MD Work Phone: [facility] 04-14-2025 13:27-0400 Body weight 109.32 kg Flash Lovelace MD Work Phone: [facility] 04-14-2025 13:27-0400 Diastolic blood pressure 62 mm[Hg] Flash Lovelace MD Work Phone: [facility] 04-14-2025 13:27-0400 Heart rate 70 /min Flash Lovelace MD Work Phone: [facility] 04-14-2025 13:27-0400 SaO2% (BldA) [Mass fraction] 96 % Flash Lovelace MD Work Phone: [facility] 04-14-2025 13:27-0400 Systolic blood pressure 132 mm[Hg] Flash Lovelace MD Work Phone: [facility] 04-08-2025 11:29-0400 Body height 188 cm Zoë Hemmer PA Work Phone: [facility] 04-08-2025 11:29-0400 Body mass index (BMI) [Ratio] 31.35 kg/m2 Zoë Hemmer PA Work Phone: [facility] 04-08-2025 11:29-0400 Body weight 110.77 kg Zoë Hemmer PA Work Phone: [facility] 04-08-2025 11:29-0400 Diastolic blood pressure 68 mm[Hg] Zoë Hemmer PA Work Phone: [facility] 04-08-2025 11:29-0400 Heart rate 70 /min Zoë Hemmer PA Work Phone: [facility] 04-08-2025 11:29-0400 Respiratory rate 18 /min Zoë Hemmer PA Work Phone: [facility] 04-08-2025 11:29-0400 SaO2% (BldA) [Mass fraction] 98 % Zoë Hemmer PA Work Phone: [facility] 04-08-2025 11:29-0400 Systolic blood pressure 146 mm[Hg] Zoë Hemmer PA Work Phone: [facility] 04-02-2025 11:54-0400 Body height 188 cm Mohsen Sarabia MD Work Phone: [facility] 04-02-2025 11:54-0400 Body mass index (BMI) [Ratio] 31.07 kg/m2 Mohsen Sarabia MD Work Phone: [facility] 04-02-2025 11:54-0400 Body weight 109.77 kg Mohsen Sarabia MD Work Phone: [facility] 04-02-2025 11:54-0400 Diastolic blood pressure 65 mm[Hg] Mohsen Sarabia MD Work Phone: [facility] 04-02-2025 11:54-0400 Heart rate 68 /min Mohsen Sarabia MD Work Phone: [facility] 04-02-2025 11:54-0400 Respiratory rate 12 /min Mohsen Sarabia MD Work Phone: [facility] 04-02-2025 11:54-0400 SaO2% (BldA) [Mass fraction] 92 % Mohsen Sarabia MD Work Phone: [facility] 04-02-2025 11:54-0400 Systolic blood pressure 121 mm[Hg] Mohsen Sarabia MD Work Phone: [facility] 03-31-2025 13:24-0400 Body height 188 cm Flash Lovelace MD Work Phone: [facility] 03-31-2025 13:24-0400 Body mass index (BMI) [Ratio] 31.2 kg/m2 Flash Lovelace MD Work Phone: [facility] 03-31-2025 13:24-0400 Body weight 110.22 kg Flash Lovelace MD Work Phone: [facility] 03-31-2025 13:24-0400 Diastolic blood pressure 58 mm[Hg] Flash Lovelace MD Work Phone: [facility] 03-31-2025 13:24-0400 Heart rate 72 /min Flash Lovelace MD Work Phone: [facility] 03-31-2025 13:24-0400 SaO2% (BldA) [Mass fraction] 96 % Flash Lovelace MD Work Phone: [facility] 03-31-2025 13:24-0400 Systolic blood pressure 128 mm[Hg] Flash Lovelace MD Work Phone: [facility] 03-21-2025 14:58-0400 Body temperature 98.1 [degF] Uri Edgar DO Work Phone: [facility] 03-21-2025 14:58-0400 Diastolic blood pressure 73 mm[Hg] Uri Edgar DO Work Phone: [facility] 03-21-2025 14:58-0400 Heart rate 88 /min Uri Edgar DO Work Phone: [facility] 03-21-2025 14:58-0400 Respiratory rate 15 /min Uri Chearz DO Work Phone: [facility] 03-21-2025 14:58-0400 SaO2% (BldA) [Mass fraction] 96 % Uri Edgar DO Work Phone: [facility] 03-21-2025 14:58-0400 Systolic blood pressure 139 mm[Hg] Uri Edgar DO Work Phone: [facility] 03-14-2025 20:34-0400 Body height 188 cm Uri Voss DO Work Phone: [facility] 03-14-2025 20:34-0400 Body mass index (BMI) [Ratio] 31.19 kg/m2 Uri Chearz DO Work Phone: [facility] 03-14-2025 20:34-0400 Body weight 110.2 kg Uri Chearz DO Work Phone: [facility] 03-14-2025 09:55-0400 Diastolic blood pressure 90 mm[Hg] Ken Johnson PLUMBER SUPERVISOR Work Phone: [facility] 03-14-2025 09:55-0400 Systolic blood pressure 147 mm[Hg] Ken Johnson PLUMBER SUPERVISOR Work Phone: [facility] 03-14-2025 09:52-0400 Body height 185.4 cm Ken Johnson PLUMBER SUPERVISOR Work Phone: [facility] 03-14-2025 09:52-0400 Body mass index (BMI) [Ratio] 32.98 kg/m2 Ken Johnson PLUMBER SUPERVISOR Work Phone: [facility] 03-14-2025 09:52-0400 Body weight 113.4 kg Ken Johnson PLUMBER SUPERVISOR Work Phone: [facility] 03-14-2025 09:52-0400 Heart rate 81 /min Kenalexis Johnson PLUMBER SUPERVISOR Work Phone: [facility] 03-14-2025 09:52-0400 SaO2% (BldA) [Mass fraction] 93 % Ken Johnson [facility] Work Phone: [facility] 03-12-2025 18:50-0400 Diastolic blood pressure 83 mm[Hg] Flash Lovelace MD Work Phone: [facility] 03-12-2025 18:50-0400 Heart rate 83 /min Flash Lovelace MD Work Phone: [facility] 03-12-2025 18:50-0400 Respiratory rate 16 /min Flash Lovelace MD Work Phone: [facility] 03-12-2025 18:50-0400 SaO2% (BldA) [Mass fraction] 95 % Flash Lovelace MD Work Phone: [facility] 03-12-2025 18:50-0400 Systolic blood pressure 171 mm[Hg] Flash Lovelace MD Work Phone: [facility] 03-12-2025 17:05-0400 Inhaled oxygen flow rate 6 L/min Flash Lovelace MD Work Phone: [facility] 03-12-2025 13:05-0400 Body height 187.96 cm Flash Lovelace MD Work Phone: [facility] 03-12-2025 13:05-0400 Body temperature 98.1 [degF] Flash Lovelace MD Work Phone: [facility] 03-12-2025 13:05-0400 Body weight 113.39 kg Flash Lovelace MD Work Phone: [facility] 03-11-2025 11:34-0400 Body height 187.96 cm Flash Lovelace MD Work Phone: [facility] 03-11-2025 11:34-0400 Body mass index (BMI) [Ratio] 32.1 kg/m2 Flash Lovelace MD Work Phone: [facility] 03-11-2025 11:34-0400 Body temperature 98 [degF] Flash Lovelace MD Work Phone: [facility] 03-11-2025 11:34-0400 Body weight 113.39 kg Flash Lovelace MD Work Phone: [facility] 03-11-2025 11:34-0400 Diastolic blood pressure 72 mm[Hg] Flash Lovelace MD Work Phone: [facility] 03-11-2025 11:34-0400 Heart rate 77 /min Flash Lovelace MD Work Phone: [facility] 03-11-2025 11:34-0400 SaO2% (BldA) [Mass fraction] 98 % Flash Lovelace MD Work Phone: [facility] 03-11-2025 11:34-0400 Systolic blood pressure 160 mm[Hg] Flash Lovelace MD Work Phone: [facility] 01-09-2025 10:33-0400 Body height 188 cm Bhaskar Wilson [employer]AME ENGINE[employer] Work Phone: [facility] 01-09-2025 10:33-0400 Body mass index (BMI) [Ratio] 32.23 kg/m2 Bhaskar Wilson GAME ENGINEER Work Phone: [facility] 01-09-2025 10:33-0400 Body weight 113.85 kg Bhaskar Wilson GAME ENGINEER Work Phone: [facility] 01-09-2025 10:33-0400 Diastolic blood pressure 74 mm[Hg] Bhaskar Wilson GAME ENGINEER Work Phone: [facility] 01-09-2025 10:33-0400 Heart rate 83 /min Bhaskar Wilson GAME ENGINEER Work Phone: [facility] 01-09-2025 10:33-0400 Respiratory rate 17 /min Bhaskar Wilson GAME ENGINEER Work Phone: [facility] 01-09-2025 10:33-0400 SaO2% (BldA) [Mass fraction] 96 % Bhaskar Wilson GAME ENGINEER Work Phone: [facility] 01-09-2025 10:33-0400 Systolic blood pressure 128 mm[Hg] Bhaskar Wilson GAME ENGINEER Work Phone: [facility] 08-12-2024 13:21-0500 Body height 188 cm Flash Lovelace MD Work Phone: [facility] 08-12-2024 13:21-0500 Body mass index (BMI) [Ratio] 33 kg/m2 Flash Lovelace MD Work Phone: [facility] 08-12-2024 13:21-0500 Body weight 116.57 kg Flash Lovelace MD Work Phone: [facility] 08-12-2024 13:21-0500 Diastolic blood pressure 78 mm[Hg] Flash Lovelace MD Work Phone: [facility] 08-12-2024 13:21-0500 Heart rate 73 /min Flash Lovelace MD Work Phone: [facility] 08-12-2024 13:21-0500 SaO2% (BldA) [Mass fraction] 96 % Flash Lovelace MD Work Phone: [facility] 08-12-2024 13:21-0500 Systolic blood pressure 138 mm[Hg] Flash Lovelace MD Work Phone: [facility] 05-21-2024 13:07-0400 Body height 188 cm Zoë Hemmer PA Work Phone: [facility] 05-21-2024 13:07-0400 Body mass index (BMI) [Ratio] 31.38 kg/m2 Zoë Hemmer PA Work Phone: [facility] 05-21-2024 13:07-0400 Body weight 110.86 kg Zoë Hemmer PA Work Phone: [facility] 05-21-2024 13:07-0400 Diastolic blood pressure 84 mm[Hg] Zoë Hemmer PA Work Phone: [facility] 05-21-2024 13:07-0400 Heart rate 80 /min Zoë Hemmer PA Work Phone: [facility] 05-21-2024 13:07-0400 Respiratory rate 16 /min Zoë Hemmer PA Work Phone: [facility] 05-21-2024 13:07-0400 SaO2% (BldA) [Mass fraction] 98 % Zoë Hemmer PA Work Phone: [facility] 05-21-2024 13:07-0400 Systolic blood pressure 152 mm[Hg] Zoë Hemmer PA Work Phone: [facility] 04-26-2024 09:25-0400 Body height 188 cm Zoë Hemmer PA Work Phone: [facility] 04-26-2024 09:25-0400 Body mass index (BMI) [Ratio] 31.23 kg/m2 Zoë Hemmer PA Work Phone: [facility] 04-26-2024 09:25-0400 Body weight 110.31 kg Zoë Hemmer PA Work Phone: [facility] 04-26-2024 09:25-0400 Diastolic blood pressure 82 mm[Hg] Zoë Hemmer PA Work Phone: [facility] 04-26-2024 09:25-0400 Heart rate 70 /min Zoë Hemmer PA Work Phone: [facility] 04-26-2024 09:25-0400 Respiratory rate 16 /min Zoë Hemmer PA Work Phone: [facility] 04-26-2024 09:25-0400 SaO2% (BldA) [Mass fraction] 96 % Zoë Hemmer PA Work Phone: [facility] 04-26-2024 09:25-0400 Systolic blood pressure 132 mm[Hg] Zoë Hemmer PA Work Phone: [facility] 12-26-2023 13:07-0400 Blood Pressure Location BRENNA MOSQUERA [facility] 12-26-2023 13:07-0400 Diastolic blood pressure 74 mm[Hg] BRENNA MOSQUERA [facility] 12-26-2023 13:07-0400 Heart rate 68 /min BRENNA MOSQUERA [facility] 12-26-2023 13:07-0400 Respiratory rate 16 /min BRENNA MOSQUERA [facility] 12-26-2023 13:07-0400 Systolic blood pressure 130 mm[Hg] BRENNA ROTHRY [facility] 10-12-2023 15:13-0500 Diastolic blood pressure 77 mm[Hg] MD Flash Lovelace Work Phone: [facility] 10-12-2023 15:13-0500 Heart rate 67 /min MD Flash Lovelace Work Phone: [facility] 10-12-2023 15:13-0500 Respiratory rate 16 /min MD Flash Lovelace Work Phone: [facility] 10-12-2023 15:13-0500 SaO2% (BldA) [Mass fraction] 96 % MD Flash Lovelace Work Phone: [facility] 10-12-2023 15:13-0500 Systolic blood pressure 177 mm[Hg] MD Flash Lovelace Work Phone: [facility] 10-12-2023 08:43-0500 Body height 187.96 cm MD Flash Lovelace Work Phone: [facility] 10-12-2023 08:43-0500 Body weight 107 kg MD Flash Lovelace Work Phone: [facility] 10-03-2023 10:00-0500 Body height 187.96 cm Cristian Beaver Other [employer] Other 10-03-2023 10:00-0500 Body mass index (BMI) [Ratio] 30.55 kg/m2 Cristian Beaver Other [employer] Other 10-03-2023 10:00-0500 Body temperature 96.4 [degF] Cristian Beaver Other [employer] Other 10-03-2023 10:00-0500 Body weight 107.96 kg Cristian Beaver Other [employer] Other 10-03-2023 10:00-0500 Diastolic blood pressure 78 mm[Hg] Cristian Beaver Other [employer] Other 10-03-2023 10:00-0500 SaO2% (BldA) [Mass fraction] 94 % Cristian Beaver Other [employer] Other 10-03-2023 10:00-0500 Systolic blood pressure 150 mm[Hg] Cristian Beaver Other [employer] Other 08-10-2023 10:52-0500 Body height 188 cm Scar Ortega APRN-PLUMBER SUPERVISOR Work Phone: [employer] 08-10-2023 10:52-0500 Body mass index (BMI) [Ratio] 29.53 kg/m2 Scar Ortega APRN-PLUMBER SUPERVISOR Work Phone: [employer] 08-10-2023 10:52-0500 Body weight 104.33 kg Scar Burrowsey AGRICULTURE SPECIALIST-PLUMBER SUPERVISOR Work Phone: [employer] 08-09-2023 12:29-0500 Diastolic blood pressure 80 mm[Hg] Mohsen Sarabia MD Work Phone: [facility] 08-09-2023 12:29-0500 Systolic blood pressure 135 mm[Hg] Mohsen Sarabia MD Work Phone: [facility] 08-09-2023 12:27-0500 Body height 185.4 cm Mohsen Sarabia MD Work Phone: [facility] 08-09-2023 12:27-0500 Body mass index (BMI) [Ratio] 30.34 kg/m2 Mohsen Sarabia MD Work Phone: [facility] 08-09-2023 12:27-0500 Body weight 104.33 kg Mohsen Sarabia MD Work Phone: [facility] 08-09-2023 12:27-0500 Heart rate 68 /min Mohsen Sarabia MD Work Phone: [facility] 08-09-2023 12:27-0500 Respiratory rate 12 /min Mohsen Sarabia MD Work Phone: [facility] 08-09-2023 12:27-0500 SaO2% (BldA) [Mass fraction] 93 % Mohsen Sarabia MD Work Phone: [facility] 06-12-2023 09:30-0400 Body height 187.96 cm Cristian Beaver Other [employer] Other 06-12-2023 09:30-0400 Body mass index (BMI) [Ratio] 30.55 kg/m2 Cristian Beaver Other [employer] Other 06-12-2023 09:30-0400 Body temperature 97.6 [degF] Cristian Beaver Other [employer] Other 06-12-2023 09:30-0400 Body weight 107.96 kg Cristian Beaver Other [employer] Other 06-12-2023 09:30-0400 Diastolic blood pressure 60 mm[Hg] Cristian Beaver Other [employer] Other 06-12-2023 09:30-0400 SaO2% (BldA) [Mass fraction] 97 % Cristian Melendezrer Other [employer] Other 06-12-2023 09:30-0400 Systolic blood pressure 138 mm[Hg] Cristian Buehrer Other [employer] Other 05-23-2023 10:45-0400 Body height 187.96 cm Cristian Melendezrer Other [employer] Other 05-23-2023 10:45-0400 Body mass index (BMI) [Ratio] 30.55 kg/m2 Cristian Melendezrer Other [employer] Other 05-23-2023 10:45-0400 Body temperature 97.8 [degF] Cristian Melendezrer Other [employer] Other 05-23-2023 10:45-0400 Body weight 107.96 kg Cristian Melendezrer Other [employer] Other 05-23-2023 10:45-0400 Diastolic blood pressure 78 mm[Hg] Cristian Jonesehrer Other [employer] Other 05-23-2023 10:45-0400 SaO2% (BldA) [Mass fraction] 98 % Cristian Buehrer Other [employer] Other 05-23-2023 10:45-0400 Systolic blood pressure 126 mm[Hg] Cristian Buehrer Other [employer] Other 11-14-2022 10:45-0400 Body height 187.96 cm Haven Malcolm Other [employer] Other 11-14-2022 10:45-0400 Body mass index (BMI) [Ratio] 31.45 kg/m2 Haven Malcolm Other [employer] Other 11-14-2022 10:45-0400 Body temperature 97.3 [degF] Haven Malcolm Other [employer] Other 11-14-2022 10:45-0400 Body weight 111.13 kg Haven Malcolm Other [employer] Other 11-14-2022 10:45-0400 Diastolic blood pressure 58 mm[Hg] Haven Malcolm Other [employer] Other 11-14-2022 10:45-0400 SaO2% (BldA) [Mass fraction] 94 % Haven Malcolm Other [employer] Other 11-14-2022 10:45-0400 Systolic blood pressure 130 mm[Hg] Haven Malcolm Other [employer] Other 11-08-2022 08:09-0400 Body temperature 97.5 [degF] Ronnie Montoya MD Work Phone: [facility] 11-08-2022 08:09-0400 Diastolic blood pressure 70 mm[Hg] Ronnie Montoya MD Work Phone: [facility] 11-08-2022 08:09-0400 Heart rate 81 /min Ronnie Montoya MD Work Phone: [facility] 11-08-2022 08:09-0400 Respiratory rate 16 /min Ronnie Montoya MD Work Phone: [facility] 11-08-2022 08:09-0400 SaO2% (BldA) [Mass fraction] 95 % Ronnie Montoya MD Work Phone: [facility] 11-08-2022 08:09-0400 Systolic blood pressure 122 mm[Hg] Ronnie Montoya MD Work Phone: [facility] 11-03-2022 13:29-0500 Body height 185.4 cm Ronnie Montoya MD Work Phone: [facility] 11-03-2022 13:29-0500 Body mass index (BMI) [Ratio] 32.98 kg/m2 Ronnie Montoya MD Work Phone: [facility] 11-03-2022 13:29-0500 Body weight 113.4 kg Ronnie Montoya MD Work Phone: [facility] 10-30-2022 21:30-0500 Diastolic blood pressure 70 mm[Hg] Dalila Arreguin MD [facility] 10-30-2022 21:30-0500 Heart rate 92 /min Dalila Arreguin MD Work Phone[facility] 10-30-2022 21:30-0500 Respiratory rate 22 /min Dalila Arreguin MD [facility] Phone[facility] 10-30-2022 21:30-0500 SaO2% (BldA) [Mass fraction] 90 % Dalila Arreguin MD Work Phone[facility] 10-30-2022 21:30-0500 Systolic blood pressure 129 mm[Hg] Dalila Arreguin MD Work Phone[facility] 10-30-2022 20:00-0500 Diastolic blood pressure 72 mm[Hg] Dalila Arreguin MD Work Phone[facility] 10-30-2022 20:00-0500 Heart rate 90 /min Dalila Arreguin MD Work Phone[facility] 10-30-2022 20:00-0500 Respiratory rate 7 /min Dalila Arreguin MD Work Phone: [email or web address] 10-30-2022 20:00-0500 SaO2% (BldA) [Mass fraction] 89 % Dalila Arreguin MD Work Phone: [email or web address] 10-30-2022 20:00-0500 Systolic blood pressure 157 mm[Hg] Dalila Arreguin MD Work Phone: [email or web address] 10-30-2022 19:34-0500 Body height 188 cm Dalila Arreguin MD Work Phone: [email or web address] 10-30-2022 19:34-0500 Body mass index (BMI) [Ratio] 32.1 kg/m2 Dalila Arreguin MD Work Phone: [email or web address] 10-30-2022 19:34-0500 Body weight 113.4 kg Dalila Arreguin MD Work Phone: [email or web address] 10-30-2022 19:06-0500 Body temperature 98.4 [degF] Dalila Arreguin MD Work Phone: [email or web address] 07-14-2022 10:48-0500 Body height 188 cm Scar Ortega AGRICULTURE SPECIALIST-PLUMBER SUPERVISOR Work Phone: [employer] 07-14-2022 10:48-0500 Body mass index (BMI) [Ratio] 32.35 kg/m2 Scar Melida AGRICULTURE SPECIALIST-PLUMBER SUPERVISOR Work Phone: [employer] 07-14-2022 10:48-0500 Body temperature 97.3 [degF] Scar Ortega AGRICULTURE SPECIALIST-PLUMBER SUPERVISOR Work Phone: [employer] 07-14-2022 10:48-0500 Body weight 114.31 kg Scar Melida AGRICULTURE SPECIALIST-PLUMBER SUPERVISOR Work Phone: [employer] 05-03-2022 13:00-0400 Body height 187.96 cm Cristian Beaver Other [employer] Other 05-03-2022 13:00-0400 Body mass index (BMI) [Ratio] 32.09 kg/m2 Cristian Beaver Other [employer] Other 05-03-2022 13:00-0400 Body temperature 97.2 [degF] Cristian Beaver Other [employer] Other 05-03-2022 13:00-0400 Body weight 113.4 kg Cristian Beaver Other [employer] Other 05-03-2022 13:00-0400 Diastolic blood pressure 60 mm[Hg] Cristian Beaver Other [employer] Other 05-03-2022 13:00-0400 SaO2% (BldA) [Mass fraction] 96 % Cristian Beaver Other [employer] Other 05-03-2022 13:00-0400 Systolic blood pressure 142 mm[Hg] Cristian Beaver Other [employer] Other 04-25-2022 16:45-0400 Diastolic blood pressure 67 mm[Hg] MD Flash Lovelace Work Phone: [facility] 04-25-2022 16:45-0400 Heart rate 67 /min MD Flash Lovelace Work Phone: [facility] 04-25-2022 16:45-0400 Respiratory rate 16 /min MD Flash Lovelace Work Phone: [facility] 04-25-2022 16:45-0400 SaO2% (BldA) [Mass fraction] 97 % MD Flash Lovelace Work Phone: [facility] 04-25-2022 16:45-0400 Systolic blood pressure 158 mm[Hg] MD Flash Lovelace Work Phone: [facility] 04-25-2022 11:24-0400 Body height 187.96 cm MD Flash Lovelace Work Phone: [facility] 04-25-2022 11:24-0400 Body weight 113.39 kg MD Flash Lovelace Work Phone: [facility] 04-19-2022 10:45-0400 Body height 187.96 cm Cristian Beaver Other [employer] Other 04-19-2022 10:45-0400 Body mass index (BMI) [Ratio] 32.09 kg/m2 Cristian Buehrer Other [employer] Other 04-19-2022 10:45-0400 Body temperature 97.5 [degF] Cristian Jonesehrer Other [employer] Other 04-19-2022 10:45-0400 Body weight 113.4 kg Cristian Melendezrer Other [employer] Other 04-19-2022 10:45-0400 Diastolic blood pressure 64 mm[Hg] Cristian Jonesehrer Other [employer] Other 04-19-2022 10:45-0400 SaO2% (BldA) [Mass fraction] 97 % Cristian Buehrer Other [employer] Other 04-19-2022 10:45-0400 Systolic blood pressure 130 mm[Hg] Cristian Buehrer Other [employer] Other 04-15-2022 17:00-0400 Respiratory rate 16 /min Carson Brock MD Work Phone: [facility] 04-15-2022 15:28-0400 Body temperature 97.9 [degF] Carson Brock MD Work Phone: [facility] 04-15-2022 15:28-0400 Diastolic blood pressure 57 mm[Hg] Carson Brock MD Work Phone: [facility] 04-15-2022 15:28-0400 Heart rate 65 /min Carson Brock MD Work Phone: [facility] 04-15-2022 15:28-0400 SaO2% (BldA) [Mass fraction] 94 % Carson Brock MD Work Phone: [facility] 04-15-2022 15:28-0400 Systolic blood pressure 153 mm[Hg] Carson Brock MD Work Phone: [facility] 04-14-2022 19:35-0400 Body height 188 cm Carson Brock MD Work Phone: [facility] 04-14-2022 19:35-0400 Body mass index (BMI) [Ratio] 31.71 kg/m2 Carson Brock MD Work Phone: [facility] 04-14-2022 19:35-0400 Body weight 112.04 kg Carson Brock MD Work Phone: [facility] 02-25-2022 09:43-0400 Body height 188 cm Wagner Moon MD Work Phone: [facility] 02-25-2022 09:43-0400 Body mass index (BMI) [Ratio] 32.21 kg/m2 Wagner Moon MD Work Phone: [facility] 02-25-2022 09:43-0400 Body temperature 99.1 [degF] Wagner Moon MD Work Phone: [facility] 02-25-2022 09:43-0400 Body weight 113.81 kg Wagner Moon MD Work Phone: [facility] 02-25-2022 09:43-0400 Diastolic blood pressure 84 mm[Hg] Wagner Moon MD Work Phone: [facility] Comment on above: anxiety 02-25-2022 09:43-0400 Heart rate 66 /min Wagner Moon MD Work Phone: [facility] 02-25-2022 09:43-0400 Respiratory rate 16 /min Wganer Moon MD Work Phone: [facility] 02-25-2022 09:43-0400 SaO2% (BldA) [Mass fraction] 95 % Wagner Moon MD Work Phone: [facility] 02-25-2022 09:43-0400 Systolic blood pressure 181 mm[Hg] Wagner Moon MD Work Phone: [facility] Comment on above: anxiety 01-21-2022 14:15-0400 Respiratory rate 16 /min Mikey Mcguire MD Work Phone: [facility] 01-21-2022 07:53-0400 Body temperature 97.9 [degF] Mikey Mcguire MD Work Phone: [facility] 01-21-2022 07:53-0400 Diastolic blood pressure 73 mm[Hg] Mikey Mcguire MD Work Phone: [facility] 01-21-2022 07:53-0400 Heart rate 66 /min Mikey Mcguire MD Work Phone: [facility] 01-21-2022 07:53-0400 SaO2% (BldA) [Mass fraction] 91 % Mikey Mcguire MD Work Phone: [facility] 01-21-2022 07:53-0400 Systolic blood pressure 133 mm[Hg] Mikey Mcguire MD Work Phone: [facility] 01-18-2022 20:43-0400 Body height 188 cm Mikey Mcguire MD Work Phone: [facility] 01-18-2022 20:43-0400 Body mass index (BMI) [Ratio] 32.1 kg/m2 Mikey Mcguire MD Work Phone: [facility] 01-18-2022 20:43-0400 Body weight 113.4 kg Mikey Mcguire MD Work Phone: [facility] 01-12-2022 09:04-0400 Body height 188 cm Dashawn Silvestre MD Work Phone: [facility] 01-12-2022 09:04-0400 Body mass index (BMI) [Ratio] 32.38 kg/m2 Dashawn Silvestre MD Work Phone: [facility] 01-12-2022 09:04-0400 Body temperature 97.11 [degF] Dashawn Silvestre MD Work Phone: [facility] 01-12-2022 09:04-0400 Body weight 114.4 kg Dashawn Silvestre MD Work Phone: [facility] 11-24-2021 09:44-0400 Body height 188 cm Dashawn Silvestre MD Work Phone: [facility] 11-24-2021 09:44-0400 Body mass index (BMI) [Ratio] 31.07 kg/m2 Dashawn Silvestre MD Work Phone: [facility] 11-24-2021 09:44-0400 Body weight 109.77 kg Dashawn Silvestre MD Work Phone: [facility] 10-09-2019 14:17-0500 BMI (Body Mass Index) 31.46 kg/m2 [facility] 10-09-2019 14:17-0500 Body weight 111.13 kg [facility] 10-09-2019 14:17-0500 BP Diastolic 66 mm[Hg] [facility] 10-09-2019 14:17-0500 BP Systolic 135 mm[Hg] [facility] 10-09-2019 14:17-0500 Height 188 cm [facility] 10-09-2019 14:17-0500 Pulse (Heart Rate) 71 /min [facility] 10-09-2019 14:17-0500 Pulse Oximetry 95 % [facility] 03-13-2019 09:57-0400 BMI (Body Mass Index) 27.99 kg/m2 Mohsen Cornell [facility] 03-13-2019 09:57-0400 Body weight 98.88 kg Mohsen Sarabia [facility] 03-13-2019 09:57-0400 BP Diastolic 73 mm[Hg] Mohsen Sarabia [facility] 03-13-2019 09:57-0400 BP Systolic 156 mm[Hg] Mohsen Sarabia [facility] 03-13-2019 09:57-0400 Height 188 cm Mohsen Sarabia [facility] 03-13-2019 09:57-0400 Pulse (Heart Rate) 72 /min Mohsen Sarabia [facility] 03-13-2019 09:57-0400 Pulse Oximetry 98 % Mohsen Sarabia [facility] 03-13-2019 09:57-0400 Respiratory Rate 16 /min Mohsen Sarabia [facility] 10-25-2018 15:07-0500 Body Temperature 99.39 [degF] [facility] 10-25-2018 15:07-0500 BP Diastolic 74 mm[Hg] [facility] 10-25-2018 15:07-0500 BP Systolic 176 mm[Hg] [facility] 10-25-2018 15:07-0500 Pulse (Heart Rate) 96 /min [facility] 10-25-2018 15:07-0500 Respiratory Rate 16 /min [facility] 10-18-2018 15:29-0500 Body Temperature 98.4 [degF] [facility] 10-18-2018 15:29-0500 BP Diastolic 79 mm[Hg] [facility] 10-18-2018 15:29-0500 BP Systolic 137 mm[Hg] [facility] 10-18-2018 15:29-0500 Pulse (Heart Rate) 86 /min [facility] 10-18-2018 15:29-0500 Respiratory Rate 16 /min [facility] 10-12-2018 18:41-0500 BP Diastolic 64 mm[Hg] [facility] 10-12-2018 18:41-0500 BP Systolic 138 mm[Hg] [facility] 10-12-2018 12:17-0500 Body Temperature 98.2 [degF] [facility] 10-12-2018 12:17-0500 Pulse (Heart Rate) 72 /min [facility] 10-12-2018 12:17-0500 Pulse Oximetry 96 % [facility] 10-12-2018 12:17-0500 Respiratory Rate 14 /min [facility] 10-08-2018 06:20-0500 BMI (Body Mass Index) 27.99 kg/m2 [facility] 10-08-2018 06:20-0500 Height 188 cm [facility] 10-08-2018 06:20-0500 Weight 98.88 kg [facility] 10-04-2018 13:08-0500 Body Temperature 98.2 [degF] [facility] 10-04-2018 13:08-0500 BP Diastolic 80 mm[Hg] [facility] 10-04-2018 13:08-0500 BP Systolic 154 mm[Hg] [facility] 10-04-2018 13:08-0500 Pulse (Heart Rate) 87 /min [facility] 10-04-2018 13:08-0500 Respiratory Rate 16 /min [facility] 09-20-2018 14:15-0500 BMI (Body Mass Index) 30.3 kg/m2 [facility] 09-20-2018 14:15-0500 Body Temperature 97.9 [degF] [facility] 09-20-2018 14:15-0500 BP Diastolic 75 mm[Hg] [facility] 09-20-2018 14:15-0500 BP Systolic 136 mm[Hg] [facility] 09-20-2018 14:15-0500 Height 188 cm [facility] 09-20-2018 14:15-0500 Pulse (Heart Rate) 92 /min [facility] 09-20-2018 14:15-0500 Respiratory Rate 16 /min [facility] 09-20-2018 14:15-0500 Weight 107.05 kg [facility] 09-13-2018 10:30-0500 Respiratory Rate 20 /min [facility] 09-13-2018 07:36-0500 Body Temperature 99.3 [degF] Tiana Veitinger [facility] 09-13-2018 07:36-0500 BP Diastolic 66 mm[Hg] Tiana Veitinger [facility] 09-13-2018 07:36-0500 BP Systolic 147 mm[Hg] [facility] 09-13-2018 07:36-0500 Pulse (Heart Rate) 103 /min [facility] 09-13-2018 07:36-0500 Pulse Oximetry 92 % [facility] 09-04-2018 19:09-0500 BMI (Body Mass Index) 31.58 kg/m2 [facility] 09-04-2018 19:0500 Height 188 cm [facility] 09-04-2018 19:090500 Weight 111.58 [facility] Encounter Date Encounter Type Care Provider Facility Start: 05-09-2025 End: 05-13-2025 Evaluation and management of inpatient FLASH LOVELACE Facility:[facility] Comment on above: Hemoptysis Start: 05-04-2025 End: 05-08-2025 Evaluation and management of inpatient Ben Carlos Albertolarisa Facility:[facility] Start: 05-04-2025 Non-patient / Non-visit Yudelka Martines MD -[facility] Work Phone: Start: 05-02-2025 Evaluation and manag ement of inpatient Adiel Arteaga MD -[facility] Work Phone: Start: 05-02-2025 observation encounter Flash Lovelace MD Work Phone: [facility] Work Phone: Start: 05-02-2025 End: 05-02-2025 Bamboo flowsheet Zoë King PA Work Phone: [facility] Start: 05-02-2025 End: 05-02-2025 Bamboo flowsheet Zoë King PA Work Phone: [facility] Start: 05-02-2025 End: 05-02-2025 Office outpatient visit 15 minutes Zoë BROWER Work Phone: [facility] Comment on above: Hemoptysis (Primary Dx); Rhonchi Start: 05-02-2025 End: 05-02-2025 ambulatory ZOË KING Not Available Start: 04-30-2025 End: 04-30-2025 Clinisync Result Encounter Generic External Data Provider [facility] External Department Unsolicited Start: 04-30-2025 End: 04-30-2025 Clinisync Result Encounter Generic External Data Provider [facility] External Department Unsolicited Start: 04-29-2025 End: 04-29-2025 Telephone encounter Sheree Murrell [facility] Comment on above: Medication Question (Has a terrible cold and runny nose wanted to know if you could zuly in a z-pack for him.) Benign essential hyp ertension Start: 04-23-2025 End: 04-23-2025 Office outpatient visit 25 minutes Mohsen Sarabia MD Work Phone: [facility] Comment on above: Critical lower limb ischemia (HCC) (Primary Dx) Start: 04-23-2025 End: 04-23-2025 ambulatory OMHSEN DE OLIVEIRA [facility] Start: 04-23-2025 End: 04-23-2025 ambulatory MOHSEN GARCIACK CORNELL [facility] Start: 04-21-2025 End: 04-21-2025 Telephone encounter Elaine Kaiser MASON Work Phone: [facility] Start: 04-16-2025 End: 04-16-2025 Clinisync Result [...] Telephone encounter Zoë King PA Work Phone: [facility] Start: 04-08-2025 End: 04-08-2025 [...] minutes Zoë BROWER Work Phone: [facility] Comment on above: PVD (peripheral vasc ular disease) with claudication (Primary Dx); Acquired absence of left foot (HCC); Ischemic toe ulcer, right, with 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) Start: 04-08-2025 End: 04-08-2025 ambulatory ZOË KING Not Available Start: 04-02-2025 End: 04-02-2025 Office outpatient visit 15 minutes Mohsen Sarabia MD Work Phone: [facility] Comment on above: Critical lower limb ischemia (HCC) (Primary Dx) Start: 04-02-2025 End: 04-02-2025 ambulatory MOHSEN SARABIA [facility] Ambulatory Start: 03-31-2025 End: 03-31-2025 Office outpatient visit 25 minutes Flash Lovelace MD Work Phone: [facility] Comment on above: PVD (peripheral vasc ular disease) with claudication; History of prostate cancer; Urinary hesitancy Start: 03-31-2025 End: 03-31-2025 ambulatory FLASH LOVELACE Not Available Start: 03-26-2025 Evaluation and manag ement of inpatient Cristian Beaver Facility:[facility] Start: 03-18-2025 End: 03-18-2025 Documentation procedure Brenna Galloway RN [facility] Start: 03-14-2025 End: 03-14-2025 Documentation procedure Ludivina Garcia RN [facility] Start: 03-14-2025 End: 03-21-2025 Evaluation and management of inpatient Elaine Macdonald MD Work Phone: [facility] Start: 03-14-2025 End: 03-14-2025 Postop follow up visit related to original px Mohsen Sarabia MD Work Phone: [facility] Comment on above: Acute pain of right lower extremity (Primary Dx) Start: 03-14-2025 End: 03-14-2025 ambulatory MOHSEN SARABIA [facility] Start: 03-14-2025 End: 03-14-2025 ambulatory FLASH LOVELACE [facility] Start: 03-13-2025 End: 03-13-2025 Documentation procedure Ludivina Garcia RN [facility] is Cardiac Non-Invasive Lab Start: 03-12-2025 End: 03-12-2025 Admission to same day surgery center Cristian Beaver MD -[facility] Start: 03-12-2025 End: 03-12-2025 ambulatory Flash Lovelace MD Work Phone: [facility] Work Phone: Start: 03-12-2025 Non-patient / Non-visit Kristen Negron MD -[facility] Work Phone: Start: 03-11-2025 End: 03-11-2025 ambulatory Flash Lovelace MD Work Phone: [facility] Work Phone: Start: 03-11-2025 End: 03-11-2025 Patient encounter procedure Cristian Beaver MD -[facility] Work Phone: Start: 02-13-2025 End: 02-13-2025 Refill Flash Lovelace MD Work Phone: [facility] Comment on above: Primary insomnia; Other chronic pain; Lumbosacral spondylosis without myelopathy Start: 01-09-2025 End: 01-09-2025 Bamboo flowsheet Bhaskar Wilson GAME ENGINEER Work Phone: [facility] Start: 01-09-2025 End: 01-09-2025 Bamboo flowsheet Bhaskar Wilson GAME ENGINEER Work Phone: [facility] Start: 01-09-2025 End: 01-09-2025 Office outpatient visit 25 minutes Bhaskar Wilson GAME ENGINEER Work Phone: [facility] Comment on above: Dysuria (Primary Dx) ; History of prostate cancer; Urinary hesitancy; Right-sided low back pain without sciatica, unspecified chronicity Start: 01-09-2025 End: 01-09-2025 ambulatory BHASKAR WILSON Not Available Start: 01-02-2025 End: 01-02-2025 Refill Flash Lovelace MD Work Phone: [facility] Comment on above: Other chronic pain; Lumbosacral spondylosis without myelopathy Start: 12-18-2024 [address] [facility] Start: 11-26-2024 End: 11-26-2024 Refill Flash [...] without myelopathy Start: 10-01-2024 ambulatory MOHSEN SARABIA [facility] Start: 09-23-2024 End: 09-23-2024 Documentation procedure Ludivina Garcia RN [facility] Start: 09-12-2024 End: 09-13-2024 Refill Flash Lovelace MD Work Phone: [facility] Comment on above: Lumbosacral spondylo sis without myelopathy Start: 08-20-2024 End: 08-20-2024 Documentation procedure Ludivina Garcia RN [facility] Vascular [...] End: 08-01-2024 Orders Only Ludivina Garcia RN [facility] Comment on above: PVD (peripheral vasc ular disease) (HCC) (Primary Dx) Start: 07-29-2024 End: 07-29-2024 ambulatory Cristian Karenmike Facility:[facility] Start: 07-22-2024 End: 07-22-2024 ambulatory [facility] Start: 07-11-2024 End: 07-11-2024 Clinisync Result Encounter Generic External Data Provider [facility] External Department Unsolicited Start: 07-11-2024 End: 07-11-2024 Clinisync Result Encounter Generic External Data Provider [facility] External Department Unsolicited Start: 07-10-2024 End: 07-10-2024 ambulatory [facility] Start: 07-05-2024 End: 07-05-2024 Refill Flash [...] [facility] Start: 05-28-2024 End: 05-28-2024 ambulatory [facility] Start: 05-21-2024 End: 05-21-2024 Bamboo flowsheet Zoë [...] myelopathy; 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CMS/[facility]); Seasonal allergic rhinitis due to pollen Start: [...] Start: 05-12-2024 End: 05-14-2024 ambulatory FLASH Kovacs [facility] Start: 04-26-2024 End: 04-26-2024 Bamboo flowsheet Zoë BROWER Work Phone: [facility] Start: 04-26-2024 End: 04-26-2024 Bamboo flowsheet Zoë BROWER Work Phone: [facility] Start: 04-26-2024 End: 04-26-2024 Patient encounter procedure Zoë BROWER Work Phone: [facility] Comment on above: [facility], subsequent (Primary Dx); ACP (advance [...] of cardiac valve disease unspecified; Atherosclerosis of [place] coronary artery of [place] heart without angina pectoris (CMS/HCC); Benign essential [...] amputation of left foot (CMS/HCC); Atherosclerosis of [place] arteries of extremities with rest pain, unspecified extremity (CMS/HCC); Pulmonary hypertension, unspecified (CMS/HCC) Start: 04-24-2024 End: 04-24-2024 ambulatory [facility] Start: 12-26-2023 End: 12-27-2023 ambulatory BRENNA MOSQUERA Facility:[facility] Start: 12-26-2023 End: 12-26-2023 Patient encounter procedure BRENNA MOSQUERA [facility] Start: 10-17-2023 End: 10-17-2023 ambulatory MD Flash Lovelace Work Phone: [facility] Work Phone: Start: 10-17-2023 End: 10-17-2023 Patient encounter procedure MD Flash Lovelace Work Phone: [facility]Electro[facility] Work Phone: Start: 10-12-2023 Non-patient / Non-visit MD Davon Lovelace Work Phone: [facility] Work Phone: Start: 10-12-2023 End: 10-12-2023 Admission to same day surgery center MD Flash Lovelace Work Phone: [facility]Interventional [facility] Work Phone: Start: 10-12-2023 End: 10-12-2023 ambulatory MD Flash Lovelace Work Phone: [facility] Work Phone: Start: 10-03-2023 End: 10-03-2023 ambulatory Cristian Beaver Other [employer] Other Start: 10-03-2023 Office outpatient vi sit 25 minutes Cristian Beaver [facility] Vascular Surgery Start: 08-10-2023 ambulatory SCAR ORTEGA [facility] Start: 08-10-2023 End: 08-10-2023 Office outpatient visit 15 minutes Scar Ortega AGRICULTURE SPECIALIST-PLUMBER SUPERVISOR Work Phone: [facility] Comment on above: Hx of total hip arth roplasty, right (Primary Dx) Start: 08-10-2023 End: 08-10-2023 Subsequent hospital visit by physician Scar Ortega AGRICULTURE SPECIALIST-PLUMBER SUPERVISOR Work Phone: [facility] Start: 08-09-2023 End: 08-09-2023 Office outpatient visit 10 minutes Mohsen Sarabia MD Work Phone: [facility] Comment on above: Critical lower limb ischemia (HCC) (Primary Dx) Start: 06-20-2023 Documentation procedure Katie harman RN [facility] Start: 06-12-2023 Office outpatient vi sit 25 minutes Cristian Beaver [facility] Vascular Surgery Start: 06-12-2023 End: 06-12-2023 ambulatory MD Flash Lovelace Work Phone: [employer] Other Start: 06-12-2023 End: 06-12-2023 Patient encounter procedure MD Flash Lovelcae Work Phone: [facility]Ul[facility] Start: 06-06-2023 End: 04-26-2024 Assay of hemosiderin, tosha BROWER Work Phone: [facility] Start: 05-23-2023 Office outpatient vi sit 25 minutes Haven Malcolm [facility] Vascular Surgery Start: 05-23-2023 End: 05-23-2023 ambulatory MD Flash Lovelace Work Phone: [employer] Other Start: 05-23-2023 End: 05-23-2023 Patient encounter procedure MD Flash Lovelace Work Phone: [facility] Start: 05-15-2023 Orders Only Mohsen paris MD Work Phone: [facility] Comment on above: PAD (peripheral devyn ry disease) (HCC) (Primary Dx) Start: 12-20-2022 End: 12-20-2022 Patient encounter procedure BRENNA MOSQUERA [facility] Start: 12-07-2022 End: 12-08-[address] FLASH LOVELACE Facility:[facility] Start: 11-14-2022 End: 11-14-2022 ambulatory Haven Malcolm Other [employer] Other Start: 11-14-2022 Follow-up encounter Haven Tej[facility] Start: 11-10-2022 End: 11-11-[address] FLASH LOVELACE Facility:[facility] Start: 11-08-2022 End: 11-08-2022 Patient encounter procedure BRENNA MOSQUERA [facility] Start: 11-03-2022 End: 11-08-2022 Evaluation and management of inpatient Ronnie Montoya MD Work Phone: [facility] Start: 10-30-2022 End: 10-30-2022 Emergency department patient visit FLASH ALCALA Work Phone: Comment on above: 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, unspecified part of lung (Primary Dx); COPD exacerbation (HCC) Start: 10-11-2022 End: 10-12-[address] FLASH LOVELACE Facility:[facility] Start: 09-20-2022 Documentation procedure Violetta Huerta [facility] Start: 08-30-2022 Refill Carolee Avila LPN [facility] Comment on above: Chronic obstructive pulmonary disease, unspecified COPD type (HCC) Start: 07-14-2022 End: 07-14-2022 Office outpatient visit 15 minutes Scar Ortega APRN-PLUMBER SUPERVISOR Work Phone: [facility] Comment on above: Hx of total hip arth roplasty, right (Primary Dx) Start: 07-14-2022 End: 07-14-2022 Subsequent hospital visit by physician Scar Ortega APRN-PLUMBER SUPERVISOR Work Phone: [facility] Start: 05-25-2022 Orders Only Katie Anna RN [facility] Comment on above: Bilateral carotid ar petra stenosis (Primary Dx) Start: 05-11-2022 End: 05-12-2022 ambulatory [facility] Start: 05-03-2022 End: 05-03-2022 ambulatory Cristian Beaver Other [employer] Other Start: 05-03-2022 Office outpatient vi sit 25 minutes Cristian Beaver [facility] Vascular Surgery Start: 04-25-2022 End: 04-25-2022 Admission to same day surgery center MD Flash Lovelace Work Phone: [facility]-Interventional Radiology Start: 04-19-2022 End: 04-19-2022 ambulatory Cristian Beaver Other [employer] Other Start: 04-19-2022 Office outpatient ne w 45 minutes Cristian Beaver [facility] Vascular Surgery Start: 04-16-2022 Documentation procedure Aaron Fenton DPM Work Phone: [facility] Start: 04-14-2022 End: 04-15-2022 Emergency department patient visit Carson Brock MD Work Phone: [facility] Observation Start: 04-14-2022 Documentation procedure Katie harman RN [facility] Heart, Lung & Vascular Surgeons Start: 02-25-2022 End: 02-25-2022 Office outpatient new 45 minutes Muna Otto MD Work Phone: [facility] Pulmonary Physicians Comment on above: Chronic obstructive pulmonary disease, unspecified COPD type (HCC) (Primary Dx); Pulmonary nodule Start: 01-28-2022 End: 01-29-2022 ambulatory ELIZABETH LAI Facility: Start: 01-18-2022 End: 01-21-2022 Evaluation and management of inpatient Mikey Mcguire MD Work Phone: [facility] Surgical Unit 3 Start: 01-18-2022 Documentation procedure Katie harman RN [facility] V[facility] Surgeons Start: 01-12-2022 End: 01-12-2022 Office outpatient visit 15 minutes Dashawn Silvestre MD Work Phone: [facility] Comment on above: Hx of total hip arth roplasty, right (Primary Dx) Start: 01-12-2022 End: 01-12-2022 Subsequent hospital visit by physician Dashawn Silvestre MD Work Phone: [facility] Radiology Start: 12-28-2021 End: 01-01-2022 ambulatory ILEANA KANG [facility] Start: 12-28-2021 End: 12-28-2021 Office outpatient new 30 minutes Ileana Kang DO Work Phone: [facility] Dermatology Comment on above: Actinic keratosis (P rimary Dx); SK (seborrheic keratosis); Inflamed seborrheic keratosis; Skin tenderness; Xerosis cutis Start: 11-24-2021 End: 11-24-2021 Office outpatient visit 15 minutes Dashawn Silvestre MD Work Phone: [facility] Comment on above: Pain in prosthetic j oint, subsequent encounter (Primary Dx) Start: 11-24-2021 End: 11-24-2021 Subsequent hospital visit by physician Dashawn Silvestre MD Work Phone: [facility] Radiology Start: 04-06-2021 End: 04-06-2021 Orders Only Katie Anna RN [facility] Surgeons Comment on above: Bilateral carotid ar petra stenosis (Primary Dx); PAD (peripheral artery disease) (HCC) PAD (peripheral devyn ry disease) (HCC) (Primary Dx) Start: 09-11-2020 End: 09-11-2020 Orders Only Rhonda Machelle Oviedo Work Phone: [facility] Start: 03-16-2020 End: 03-16-2020 Subsequent hospital visit by physician Mohsen Sarabia Work Phone: [facility] Peripheral Vascular Lab Comment on above: Bilateral carotid ar petra stenosis 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) Start: 10-21-2019 End: 10-21-2019 Subsequent hospital visit by physician Mohsen Sarabia Work Phone: [facility] CT Comment on above: S/P bypass graft of extremity; PAD (peripheral artery disease) (HCC); 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) Start: 10-09-2019 End: 10-09-2019 Office outpatient visit 25 minutes Rose Rosales Work Phone: [facility] Heart, Lung & Vascular Surgeons [...] visit by physician Mohsen Sarabia Work Phone: [facility] Peripheral Vascular Lab Comment on above: Bilateral carotid ar petra stenosis Start: 03-13-2019 End: 03-13-2019 Office outpatient visit 10 minutes Mohsen Sarabia Work Phone: [facility] Surgeons Comment on above: Critical lower limb ischemia (Primary Dx) Start: 03-13-2019 End: 03-13-2019 Subsequent hospital visit by physician Mohsen [facility]ab[facility] Comment on above: 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) Start: 12-17-2018 End: 12-17-2018 Office outpatient new 30 minutes Eugene Barnett Work Phone: [facility] ENT Comment on above: Referred otalgia of right ear (Primary Dx); Bilateral temporomandibular joint pain Start: 11-23-2018 Patient encounter procedure ANALIA FOX Facility:[facility] Start: 10-31-2018 End: 10-31-2018 Emergency department [facility] Start: 10-31-2018 End: 10-31-2018 Office outpatient visit 10 minutes Mohsen Sarabia Work Phone: [facility] V[facility] Surgeons Comment on above: Gangrene of left eliseo t (HCC) (Primary Dx); Critical lower limb ischemia Start: 10-31-2018 End: 10-31-2018 Subsequent hospital visit by physician Mohsen Sarabia Work Phone: [facility] Comment on above: Atherosclerosis of n ative artery of left lower extremity with rest pain (HCC) ; S/P bypass graft of extremity; Atherosclerosis of alatna artery of left lower extremity with rest pain (HCC) Start: 10-31-2018 End: 10-31-2018 Patient encounter procedure Mohsen Sarabia Work Phone: [facility] Comment on above: 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) ; S/P bypass graft of extremity; 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) Start: 10-26-2018 Coordination of care plan Mine J [facility] Coord[facility] Start: 10-26-2018 End: 10-26-2018 Patient encounter procedure Mine Lew [facility] Start: 10-25-2018 End: 10-25-2018 Postop follow up visit related to original px Flynn Mann Work Phone: [facility] Wound Care Comment on above: 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); Gangrene (HCC); PVD (peripheral vascular disease) (HCC); 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, left; Lower extremity edema Start: 10-19-2018 Coordination of care plan [facility] Start: 10-19-2018 End: 10-19-2018 Patient encounter procedure Mine Lew [facility] Start: 10-18-2018 End: 10-18-2018 Postop follow up visit related to original px Flynn Mann Work Phone: [facility] Comment on above: Gangrene (HCC) (Prim katherine Dx); 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 (HCC); PVD (peripheral vascular disease) (HCC); Lower extremity edema; 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, left Start: 10-04-2018 End: 10-12-2018 Evaluation and management of inpatient FLYNNMARY KAY GARDINERHL [facility] Start: 10-04-2018 End: 10-12-2018 Evaluation and management of inpatient Flynn Mann Work Phone: [facility] Comment on above: Acute post-operative pain (Primary Dx) Start: 10-04-2018 End: 10-04-2018 Office outpatient visit 15 minutes Flynn Beena Mehl Work Phone: [facility] Comment on above: Gangrene (HCC) (Prim katherine Dx); PVD (peripheral vascular disease) (HCC); Left foot pain; Critical lower limb ischemia; Ulcer of toe of left foot, with necrosis of bone (HCC) Start: 09-27-2018 Coordination of care plan Mine J Lew [facility] Start: 09-27-2018 End: 09-27-2018 Patient encounter procedure Mine Lew [facility] Start: 09-21-2018 End: 09-21-2018 Coordination of care plan Radha Matos Elena [facility] Start: 09-21-2018 End: 09-21-2018 Patient encounter procedure Mine Lew [facility] Start: 09-20-2018 End: 09-20-2018 Patient encounter procedure Flynn Mann Work Phone: [facility] Fluoroscopy Comment on above: Critical lower limb ischemia Start: 09-20-2018 End: 09-20-2018 Office outpatient visit 15 minutes Flynn Mann Work Phone: [facility] Wound Care Comment on above: Critical lower limb ischemia (Primary Dx); Gangrene (HCC); PVD (peripheral vascular disease) (HCC); Left foot pain Start: 09-04-2018 End: 09-13-2018 Evaluation and management of inpatient Tiana Em Work Phone: [facility] Vascular Thoracic Surgery Comment on above: Ischemic foot (Prima ry Dx); PAD (peripheral artery disease) (HCC); Critical lower limb ischemia Start: 08-29-2018 Patient encounter procedure [facility] Start: 08-27-2018 Patient encounter procedure [facility] Start: 08-22-2018 Patient encounter procedure [facility] Start: 10-31-2016 End: 11-06-2016 Ambulatory [facility] Start: 03-06-2014 End: 03-06-2014 Patient encounter procedure [facility] Procedures Date Procedure Procedure Detail Performing Clinician Start: 05-13-2025 Creatinine blood Jose Manuel Hernandez MD Work Phone: Start: 05-12-2025 Antibody screen Rafaela Garcia MD Work Phone: Start: 05-12-2025 Antibody screen FLASH LOVELACE Comment on above: Performed By: #### VANCTR #### [facility] (DEFAULT) [address] [place] [address] Start: 05-12-2025 Blood typing serologic abo Rafaela Matos Work Phone: Start: 05-12-2025 CBC AND ELECTRONIC DIFF Rafaela Garcia MD Work Phone: Start: 05-12-2025 Complete blood count with white cell differential, automated Rafaela Garcia MD Work Phone: Start: 05-12-2025 Creatinine blood Jose Manuel Hernandez MD Work Phone: Start: 05-11-2025 CBC AND ELECTRONIC DIFF Rafaela Garcia MD Work Phone: Start: 05-11-2025 Complete blood count with white cell differential, automated Rafaela Garcia MD Work Phone: Start: 05-11-2025 Creatinine blood Rafaela Garcia MD Work Phone: Start: 05-11-2025 Hepatic function panel Rafaela Garcia MD Work Phone: Start: 05-10-2025 Blood count hematocrit Rafaela Garcia MD Work Phone: Start: 05-10-2025 Drug screen quantitative vancomycin Gail Awad [facility] Work Phone: Start: 05-10-2025 Cul bact xcpt urine blood/stool aerobic isol Rafaela Garcia MD Work Phone: Start: 05-10-2025 C-reactive protein Manpreet W Murray DPM Work Phone: Start: 05-10-2025 Creatinine blood Jose Manuel Hernandez MD Work Phone: Start: 05-09-2025 Us abdominal real time w/image limited Jose Manuel Hernandez MD Work Phone: Start: 05-09-2025 Hepatitis b surf antibody hbsab Jose Manuel Hernandez MD Work Phone: Start: 05-09-2025 Bilirubin direct Jose Manuel Hernandez MD Work Phone: Start: 05-09-2025 CBC AND ELECTRONIC DIFF Jose Manuel Hernandez MD Work Phone: Start: 05-09-2025 Complete blood count with white cell differential, automated Jose Manuel Hernandez MD Work Phone: Start: 05-02-2025 Plain chest X-ray Flash Lovelace MD Work Phone: Start: 04-30-2025 ALL BASIC METABOLIC PANEL Generic Manager Managing al Data Provider Start: 04-30-2025 ALL C [...] MD Work Phone: Start: 03-17-2025 Glucose measurement [facility] Work Phone: Start: 03-17-2025 Basic [...] Work Phone: Start: 03-14-2025 Prothrombin time Dashawn BROWER-C Work Phone: Start: 03-14-2025 RAINBOW DRAW Elaine [...] Acquired absence of left foot Elaine Saab CHUTE PULLER Start: 07-11-2024 ALL BASIC METABOLIC PANEL Generic Manager Managing al Data Provider Start: 07-11-2024 ALL CBC WITH AUTO DIFF Generic External Data Provider Start: 07-11-2024 ALL SED RATE Generic External Data Provider Start: 07-11-2024 MHPT DIFFERENTIAL Generic External Data Provider Start: 07-03-2024 ALL BASIC METABOLIC PANEL Generic Manager Managing al Data Provider Start: 05-28-2024 History of [...] Radiologic exam chest single view Jose Escalona PLUMBER SUPERVISOR Work Phone: Start: 11-08-2022 Renal function panel Duke Claros MD Work Phone: Start: 11-07-2022 Assay of troponin quantitative Jass Barboza MD Work Phone: Start: 11-07-2022 Assay of troponin quantitative Jass Barboza MD Work Phone: Start: 11-07-2022 Ecg routine ecg w/least 12 lds trcg only w/o i&r Jass Barbzoa MD Work Phone: Start: 11-07-2022 Renal function panel Duke Claros MD Work Phone: Start: 11-06-2022 TTE w or wo fol wcon,Doppler Duke Claros MD Work Phone: Start: 11-06-2022 Renal function panel Duke Claros MD Work Phone: Start: 11-05-2022 Renal function panel Duke Claros MD Work Phone: Start: 11-04-2022 Radex humerus minimum 2 views Gustavo Was jake PLUMBER SUPERVISOR Work Phone: Start: 11-04-2022 Renal function panel [...] Phone: Start: 11-03-2022 Ct angiography chest w/contrast/noncontrast Sharorn Khan PA-C Work Phone: Start: 11-03-2022 Assay of troponin quantitative Ronnie Montoya MD Work Phone: Start: 11-03-2022 Radiologic exam chest single view Aurelia Awilda Juana PLUMBER SUPERVISOR Work Phone: Start: 11-03-2022 Radex foot complete minimum 3 views Aurelia Awilda Lyons PLUMBER SUPERVISOR Work Phone: Start: 11-03-2022 Dup-scan xtr veins complete bilateral study Aurelia Awilda Juana PLUMBER SUPERVISOR Work Phone: Start: 11-03-2022 Basic metabolic panel calcium total Aurelia Awilda Juana PLUMBER SUPERVISOR Work Phone: Start: 11-03-2022 C-reactive protein Aurelia Awilda Lyons PLUMBER SUPERVISOR Work Phone: Start: 11-03-2022 FRIEDMAN TOP Triage Protocol Emergency MD Start: 11-03-2022 LIGHT BLUE TOP Triage Protocol Emergency MD Start: 11-03-2022 LIGHT GREEN TOP Triage Protocol Emergency MD Start: 11-03-2022 PINK TOP Triage Protocol Emergency MD Start: 11-03-2022 Ecg routine ecg w/least 12 lds trcg only w/o i&r Aurelia Tillman PLUMBER SUPERVISOR Work Phone: Start: 11-03-2022 End: 11-03-2022 RAINBOW DRAW Triage Protocol Emergency Start: 11-03-2022 URINE CONTAINER Triage Protocol Emergency Start: 11-03-2022 End: 11-03-2022 Urnls dip stick/tablet reagent auto microscopy Aurelia Tillman PLUMBER SUPERVISOR Work Phone: Start: 10-30-2022 Iadna respiratry probe & rev trnscr 12-25 target Dalila Arreguin MD Work Phone: Start: 10-30-2022 Radiologic exam chest single view Dalila Arreguin MD Work Phone: Start: 10-30-2022 DIFFERENTIAL Dalila Arreguin MD Work Phone: Start: 10-30-2022 End: 10-30-2022 Natriuretic peptide Dalila Arreguin MD Work Phone: Start: 10-11-[address] FLASH LOVELACE Comment on above: Performed By: #### PSAD #### [facility] [address] [place] [address] Dr. Benedict Edmondson Start: 04-25-2022 Ultrasound (US) [...] Basic metabolic panel calcium total Mehnaz Rebecca BROWER-C Work Phone: Start: 01-18-2022 C-reactive protein Mehnaz BROWER-C Work Phone: Start: 01-18-2022 Culture bacterial blood aerobic w/id isolates Mehnaz BROWER-C Work Phone: Start: 01-18-2022 FRIEDMAN TOP Mikey Mcguire MD Work Phone: Start: 01-18-2022 LIGHT BLUE TOP Mikey Mcguire MD Work Phone: Start: 01-18-2022 LIGHT GREEN TOP Mikey Mcguire MD Work Phone: Start: 01-18-2022 OBTAIN VENOUS BLOOD GASES AND PERFORM Mehnaz BROWER-C Work Phone: Start: 01-18-2022 PINK TOP Mikey Mcguire MD Work Phone: Start: 01-18-2022 RAINBOW DRAW Mikey Mcguire MD Work Phone: Start: 01-18-2022 Ecg routine ecg w/least 12 lds w/i&r User Experience Designer Generic Start: 03-16-2020 Carotid artery doppler assessment [...] 10-08-2018 Procedure on tissue specimen Flynn bragg [facility] Work Phone: Start: 10-08-2018 End: 10-08-2018 AMPUTATION TRANSMETATARSAL Flynn jasso [facility] Work Phone: Start: 10-08-2018 Basic metabolic [...] 09-13-2018 Hemoglobin and Hematocrit panel - Blood Viancamarciano Fernandez Franco Work Phone: Start: 09-13-2018 Basic metabolic 2000 panel - Serum or Plasma Pacoa Erin Rincon Work Phone: Start: 09-13-2018 Complete [...] or Plasma Miryam Rincon Work Phone: Start: 09-12-2018 Complete blood count (hemogram) panel - Blood by Automated count Miryam Rincon Work Phone: Start: 09-12-2018 INR in Platelet poor plasma by Coagulation assay Pacoa Erin Rincon Work Phone: Start: 09-12-2018 Hemoglobin and [...] Plasma Pacoa Erin Rincon Work Phone: Start: 09-10-2018 Complete blood [...] Plasma Pacoa Erin Rincon Work Phone: Start: 09-09-2018 Complete blood count [...] Phone: Start: 09-07-2018 APTT - reference Vianca Fernandez Salvador Work Phone: Start: 09-06-2018 Blood group typing [...] Start: 09-30-2029 Tetanus vaccination [facility] Start: 05-11-2026 Potassium [Moles/vol ume] in Serum or Plasma POTASSIUM [facility] Start: 03-15-2026 Depression screening using PHQ-9 (Patient Health Questionnaire 9) score Depression Screening/Follow-Up (PHQ-2/9) [facility] Start: 05-09-2025 [facility] Start: 05-08-2025 [facility] Start: 05-05-2025 Consultation [facility] Start: 05-03-2025 [facility] Start: 05-03-2025 [facility] Start: 05-02-2025 [facility] Start: 05-02-2025 Hospital admission [facility] Start: 05-02-2025 [facility] Start: 05-02-2025 [facility] Start: 05-02-2025 Respiratory Panel (PCR) Respiratory Panel (PCR) [facility] Start: 05-02-2025 End: 05-02-2025 Patient encounter procedure 05/02/2025 1:00 PM EDT Office Visit [facility] [place] [address] [place] [id number] Zoë King PA [address] [place] [address] Arrived [facility] [place] Comment on above: Arrived Start: 04-28-2025 COVID-19 VACCINE ( season) COVID-19 VACCINE ( season) [facility] Start: 04-28-2025 Influenza vaccination Influenza Vacc ine (#1) [facility] Start: 04-26-2025 Medicare Annual Well ness (AWV) Medicare Annual Wellness (AWV) [facility] Start: 04-24-2025 End: 04-24-2025 Patient encounter procedure 04/24/2025 1:00 PM EDT Office Visit [facility] [address] [facility] [address] [place] [phone] Emmanuel Gonzalez DPM [address] [facility] [address] [place] [address] [facility] Start: 04-14-2025 End: 04-14-2026 MR Foot - right WO contrast MR foot right wo IV contrast Imaging Routine Osteomyelitis of right foot, unspecified type (HCC) Expected: 04/14/2025, Expires: 04/14/2026 [facility] Work Phone: Comment on above: Expected: 04/14/2025 , Expires: 04/14/2026 Start: 04-08-2025 End: 04-08-2026 SUPERFICIAL WOUND (HTRX) SUPERFICIAL WOUND (HTRX) Lab Routine Ischemic toe ulcer, right, with 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) Expected: 04/08/2025 (Approximate), Expires: 04/08/2026 [facility] Work Phone: Comment on above: Expected: 04/08/2025 (Approximate), Expires: 04/08/2026 Start: 04-08-2025 End: 04-08-2025 Patient encounter procedure 04/08/2025 11:30 AM EDT Office Visit [facility] [place] [address] [facility] [address] [place] [phone] Zoë King PA [address] [facility] [address] [place] [address] Arrived [facility] [place] Comment on above: Arrived Start: 03-14-2025 End: 03-14-2025 Patient encounter procedure [facility] Start: 03-12-2025 [facility] Start: 03-12-2025 [facility] Start: 01-09-2025 End: 01-09-2026 Bacteria [...] [address] [place] [address] Bhaskar Wilson, GAME ENGINEER [address] [place] [address] Arrived [facility] Comment on above: Arrived Start: 11-04-2024 End: 11-04-2024 Patient encounter procedure 11/04/2024 10:45 AM EDT Office Visit [facility] [address] [place] [address] Flash Lovelace MD [address] [place] [address] [facility] Start: 08-12-2024 End: 08-12-2024 Patient encounter procedure 08/12/2024 1:30 PM EST Office Visit [facility] [address] [place] [address] Flash Lovelace MD [address] [place] [address] [facility] Start: 07-29-2024 End: 07-29-2024 Patient encounter procedure 07/29/2024 10:00 AM EST Office Visit [facility] [address] [place] [address] Flash Lovelace MD [address] [place] [address] [facility] Start: 06-06-2024 History and physical examination, annual for health maintenance Wellness Visit [facility] Start: 06-06-2024 Medicare Annual Well ness (AWV) Medicare Annual Wellness (AWV) [facility] Start: 06-06-2024 Medicare Wellness Visit Medicare Wel lness Visit [facility] Start: 05-21-2024 End: 05-21-2024 Patient encounter procedure 05/21/2024 1:00 PM EDT Office Visit [facility] [address] [place] [address] Zoë King, PA [address] [place] [address] Arrived [facility] Comment on above: Arrived Start: 04-28-2024 COVID-19 Vaccine ( season) COVID-19 Vaccine ( season) [facility] Start: 04-28-2024 Influenza vaccination Influenza Vacc ine (#1) [facility] Start: 04-26-2024 End: 04-26-2024 Patient encounter procedure 04/26/2024 9:30 AM EDT Office Visit [facility] [address] [place] [address] Zoë King, PA [address] [place] [address] Arrived [facility] Comment on above: Arrived Start: 10-12-2023 [facility] Start: 08-09-2023 End: 08-09-2023 Patient encounter procedure [facility] Start: 07-13-2023 End: 07-13-2023 Patient encounter procedure 07/13/2023 Office Visit Orthopaedics Scar Ortega, AGRICULTURE SPECIALIST-PLUMBER SUPERVISOR [address] [place] [address] [facility] Start: 05-16-2023 End: 07-15-2024 Ultrasound ankle / brachial indices extremity complete Ultrasound ankle / brachial indices extremity complete Vascular Ultrasound Routine PAD (peripheral artery disease) ([facility]) Expected: 05/16/2023, Expires: 07/15/2024 [facility] Work Phone: Comment on above: Expected: 05/16/2023 , Expires: 07/15/2024 Start: 05-16-2023 End: 07-15-2024 US Duplex Bypass Graft Left LE US Duplex Bypass Graft Left LE Vascular Ultrasound Routine PAD (peripheral artery disease) (HCC) Expected: 05/16/2023, Expires: 07/15/2024 [facility] Comment on above: Expected: 05/16/2023 , Expires: 07/15/2024 Start: 04-28-2023 COVID-19 Vaccine ( season) COVID-19 Vaccine ( season) [facility] Start: 04-28-2023 COVID-19 VACCINE ( season) COVID-19 VACCINE ( season) [facility] Start: 04-28-2023 Influenza vaccination Sequenti al Influenza Vaccine (#1) [facility] Start: 10-30-2022 Annual Wellness Visi t (AWV) Annual Wellness Visit (AWV) [facility] Start: 07-14-2022 End: 07-14-2022 Patient encounter procedure 07/14/2022 Office Visit Scar Pickett, AGRICULTURE SPECIALIST-PLUMBER SUPERVISOR [address] [place] [address] [facility] Start: 05-25-2022 End: 11-28-2023 Carotid artery doppler assessment Carotid Duplex Vascular Ultrasound Routine Bilateral carotid artery stenosis Expected: 05/25/2022, Expires: 07/25/2023 [facility] Work Phone: Comment on above: Expected: 05/25/2022 , Expires: 07/25/2023 Start: 05-23-2022 End: 05-23-2022 Patient encounter procedure 05/23/2022 Office Visit Pulmonology Wagner Moon MD [address] [place] [address] [facility] Start: 05-11-2022 End: 02-25-2023 CT of chest without contrast CT Chest Without Contrast Imaging Routine Pulmonary nodule Expected: 05/11/2022, Expires: 02/25/2023 [facility] Work Phone: Comment on above: Expected: 05/11/2022 , Expires: 02/25/2023 Start: 05-11-2022 End: 05-11-2022 Patient encounter procedure 05/11/2022 Appointment Radiology Wagner Moon MD [address] [place] [address] [facility] [address] Scan Start: 04-28-2022 Influenza vaccination Sequenti al Influenza Vaccine (#1) [facility] Start: 04-25-2022 [facility] Work Phone: Start: 01-19-2022 End: 01-19-2022 Patient encounter procedure [facility] Vascular Lab Start: 01-12-2022 End: 01-12-2022 Patient encounter procedure 01/12/2022 Office Visit Orthopaedics Dashawn Silvestre MD [address] [place] [address] [facility] Start: 11-29-2021 End: 11-29-2021 ambulatory 11/29/2021 Rehab Services Visit Physical Therapy Dashawn Silvestre MD [address] [place] [address] Andree Cronin, PT [address] [facility] [place] [address] [facility] Therapy and Sport Medicine Dewy Rose Start: 11-04-2021 COVID-19 Vaccine (4 - Booster for Moderna series) COVID-19 Vaccine (4 - Booster for Moderna series) [facility] Start: 11-04-2021 COVID-19 Vaccine (4 - Moderna series) COVID-19 Vaccine (4 - Moderna series) [facility] Start: 10-08-2021 History and physical examination, annual for health maintenance Wellness Visit [facility] Start: 04-28-2021 Influenza vaccination Sequenti al Influenza Vaccine (#1) [facility] Start: 04-06-2021 End: 06-06-2022 Carotid artery doppler assessment Carotid Duplex Vascular Ultrasound Routine Bilateral carotid artery stenosis Expected: 04/06/2021, Expires: 06/06/2022 [facility] Comment on above: Expected: 04/06/2021 , Expires: 06/06/2022 Start: 04-06-2021 End: 06-06-2022 Ultrasound ankle / brachial indices extremity complete Ultrasound ankle / brachial indices extremity complete Vascular Ultrasound Routine PAD (peripheral artery disease) ([facility]) Expected: 04/06/2021, Expires: 06/06/2022 [facility] Comment on above: Expected: 04/06/2021 , Expires: 06/06/2022 Start: 04-06-2021 End: 06-06-2022 Ultrasound duplex arterial leg left Ultrasound duplex arterial leg left Vascular Ultrasound Routine PAD (peripheral artery disease) ([facility]) Expected: 04/06/2021, Expires: 06/06/2022 [facility] Comment on above: Expected: 04/06/2021 , Expires: 06/06/2022 Start: 03-30-2021 COVID-19 VACCINE (3 - Booster for Moderna series) COVID-19 VACCINE (3 - Booster for Moderna series) [facility] Start: 12-23-2020 COVID-19 Vaccine (3 - Booster for Moderna series) COVID-19 Vaccine (3 - Booster for Moderna series) [facility] Start: 09-30-2020 History and physical examination, annual for health maintenance Wellness Visit [facility] Start: 04-28-2020 Influenza vaccinatio n given Sequential Influenza Vaccine (#1) [facility] Start: 10-21-2019 End: 10-21-2019 Appointment 10/21/2019 Appointment Radiology Mohsen Sarabia MD [address] [facility] [address] [place] [address] [phone] [facility] [address] Start: 04-28-2019 Influenza vaccinatio n given SEQUENTIAL INFLUENZA VACCINE (#1) [facility] Start: 03-18-2019 End: 03-18-2019 Appointment 03/18/2019 Appointment Cardiology Mohsen Sarabia MD [address] [facility] [address] [place] [address] [phone] [facility] Peripheral Vascular Lab Start: 11-01-2018 End: 11-01-2018 Appointment [facility] Cardiac Non-Invasive Lab Start: 10-31-2018 End: 10-31-2018 Appointment [facility] Cardiac Non-Invasive Lab Start: 10-25-2018 End: 10-25-2018 Office Visit 10/25/2018 Office Visit Wound Care Flynn Mann DPM [address] [place] [address] [phone] [facility] Start: 10-10-2018 End: 10-10-2018 Follow-Up 10/10/2018 Follow-Up Cardiothoracic Surgery Mohsen Sarabia MD [address] [address] [phone] [facility] Surgeons Start: 10-04-2018 End: 10-04-2018 Office Visit 10/04/2018 Office Visit Wound Care Flynn Mann DPM [address] [place] [address] [phone] [facility] Start: 10-03-2018 End: 10-03-2018 Follow-Up 10/03/2018 Follow-Up Cardiothoracic Surgery Mohsen Sarabia MD [address] [facility] [address] [place] [address] [phone] [facility] Surgeons Start: 09-20-2018 End: 09-20-2018 Office Visit 09/20/2018 Office Visit Wound Care Flynn Mann, DPM [address] [place] [address] [phone] [facility] Start: 04-28-2018 Influenza vaccinatio n given SEQUENTIAL INFLUENZA VACCINE (#1) [facility] Start: 05-18-2016 Pneumococcal vaccination PNEUM OCOCCAL VACCINE AGE 65+ (2 of 2 - PPSV23) [facility] Start: 07-13-2015 Pneumococcal Vaccine : Age 50+ (2 of 2 - PPSV23) Pneumococcal Vaccine: Age 50+ (2 of 2 - PPSV23) [facility] Start: 07-13-2015 Pneumococcal Vaccine : Age 50+ (2 of 2 - PPSV23, PCV20, or PCV21) Pneumococcal Vaccine: Age 50+ (2 of 2 - PPSV23, PCV20, or PCV21) [facility] Start: 07-13-2015 Pneumococcal Vaccine : Age 65+ (1 of 2 - PPSV23) Pneumococcal Vaccine: Age 65+ (1 of 2 - PPSV23) [facility] Start: 07-13-2015 Pneumococcal Vaccine : Age 65+ (2 - PPSV23 or PCV20) Pneumococcal Vaccine: Age 65+ (2 - PPSV23 or PCV20) [facility] Start: 07-13-2015 Pneumococcal Vaccine : Age 65+ (2 of 2 - PPSV23 or PCV20) Pneumococcal Vaccine: Age 65+ (2 of 2 - PPSV23 or PCV20) [facility] Start: 07-13-2015 Pneumococcal Vaccine : Age 65+ (2 of 2 - PPSV23) Pneumococcal Vaccine: Age 65+ (2 of 2 - PPSV23) [facility] Start: 2014 Respiratory Syncytia l Virus Immunization: Risk, 60-74 Risk, or 75+ (1 - 1-dose 75+ series) Respiratory Syncytial Virus Immunization: Risk, 60-74 Risk, or 75+ (1 - 1-dose 75+ series) [facility] Start: 2014 RSV VACCINE (1 - 1-d ose 75+ series) RSV VACCINE (1 - 1-dose 75+ series) [facility] Start: 01-04-2004 Fall risk assessment [facility] Start: 01-04-2004 Pneumococcal vaccination [facility] Start: 1989 Administration of he rpes zoster vaccine ZOSTER VACCINES (1 of 2) [facility] Start: 1989 Shingles vaccine (1 of 2) Villeda gles vaccine (1 of 2) [facility] Start: 1989 Zoster vaccine hzv l tatum for subcutaneous use ZOSTER (SHINGLES) VACCINE (1 of 2) [facility] Start: 01-04-1984 Colonoscopy COLORECTAL CAN CER SCREENING DISCUSSION [facility] Start: 01-04-1984 Screening for malign ant neoplasm of colon COLORECTAL CANCER SCREENING DISCUSSION [facility] Start: 1958 Third diphtheria, te tanus and acellular pertussis (DTaP) vaccination TDAP (ADULT) [facility] Start: [address] [facility] Start: 1951 Adolescent depressio n screening assessment Depression Screening (PHQ9) [facility] Start: 1951 COVID-19 Vaccine (1) COVID-19 Vaccin e (1) [facility] Start: 1951 Depression Screen Depression Screen [facility] Start: 1951 Depression screening using PHQ-9 (Patient Health Questionnaire 9) score [facility] Start: 1949 Lipid panel Lipids [facility] Start: 1945 Pneumococcal vaccination PNEUM OCOCCAL VACCINE SERIES (1 - PCV) [facility] Start: 1942 History and physical examination, annual for health maintenance Wellness Visit [facility] Start: 1939 COVID-19 VACCINE (#1) COVID-19 VACCI NE (#1) [facility] Start: 1939 Fall risk assessment Falls Risk Asse ssment [facility] Start: 1939 [facility] Bacteria identified in Blood by Culture Blood Culture Aerobic/Anaerobic Microbiology Routine 01/18/2022 9:05 PM EDT [facility] Work Phone: End: 01-08-2023 CT of chest without contrast CT Chest Without Contrast Imaging Routine Community acquired pneumonia of left lower lobe of lung 1 Occurrences starting 11/08/2022 until 01/08/2023 [facility] Work Phone: Comment on above: 1 Occurrences starti ng 11/08/2022 until 01/08/2023 Iron binding capacit y [Mass/volume] in Serum or Plasma [facility] Patient Education [facility] Work Phone: Patient referral [facility] Work Phone: Respiratory pathogen s DNA and RNA panel - Nasopharynx by OREN with non-probe detection [facility] Reticulocytes [#/vol ume] in Blood [facility] Reticulocytes/100 erythrocytes in Blood [facility] Transfusion of red b lood cells Transfuse RBC STAT 09/11/2018 6:52 PM [facility] End: 05-10-2025 Ultrasonography VASC ANKLE BRACHIAL INDEX Imaging Routine One Time for 1 Occurrences starting 05/10/2025 until 05/10/2025 [facility] Work Phone: Comment on above: One Time for 1 Occur rences starting 05/10/2025 until 05/10/2025 End: 09-20-2019 X-ray of left ankle XR Ankle Left 3+ Views (Standard) Routine Critical lower limb ischemia 1 Occurrences starting 09/20/2018 until 09/20/2019 [facility] Comment on above: 1 Occurrences starti ng 09/20/2018 until 09/20/2019 X-ray of left ankle XR Ankle Lef t 3+ Views (Standard) Routine Critical lower limb ischemia 09/20/2018 3:30 PM [facility] End: 09-20-2019 X-ray of left foot XR Foot Left 3+ Views (Standard) Routine Critical lower limb ischemia 1 Occurrences starting 09/20/2018 until 09/20/2019 [facility] Comment on above: 1 Occurrences starti ng 09/20/2018 until 09/20/2019 X-ray of left foot XR Foot Left 3+ Views (Standard) Routine Critical lower limb ischemia 09/20/2018 3:29 PM [facility] XR Pelvis and Hip - right Views XR HIP WITH PELVIS RIGHT Imaging Routine Pain in prosthetic joint, subsequent encounter 11/24/2021 9:21 AM EDT [facility] XR Pelvis and Hip - right Views XR HIP WITH PELVIS RIGHT Imaging Routine Hx of total hip arthroplasty, right 01/12/2022 8:59 AM EDT [facility] XR Pelvis and Hip - right Views XR HIP WITH PELVIS RIGHT Imaging Routine Hx of total hip arthroplasty, right 07/14/2022 10:44 AM EST [facility] XR Pelvis and Hip - right Views XR HIP WITH PELVIS RIGHT Imaging Routine Hx of total hip arthroplasty, right 08/10/2023 10:49 AM EST [facility] Immunizations Immunization Date Immunization Notes Care Provider [facility] 08-12-2024 Influenza, High-dose Seasonal, Quadrivalent, Preservative Free Flash Lovelace MD Work Phone: [facility] 08-12-2024 influenza virus vacc ine, unspecified formulation Ludivina Garcia RN [facility] 06-06-2023 influenza virus vacc ine, unspecified formulation BRENNA MOSQUERA [facility] 06-06-2023 Influenza, High-dose Seasonal, Quadrivalent, Preservative Free Zoë Hemmer PA Work Phone: [facility] 05-31-2022 influenza virus vacc ine, unspecified formulation BRENNA MOSQUERA [facility] 05-31-2022 Influenza, High-dose Seasonal, Quadrivalent, Preservative Free Ozë Hemmer PA Work Phone: [facility] 09-09-2021 SARS-CoV-2 (COVID-19 ) mRNA-1273 vaccine BRENNA MOSQUERA [facility] 06-21-2021 influenza virus vacc ine, unspecified formulation BRENNA MOSQUERA [facility] 06-21-2021 influenza, high dose seasonal, preservative-free Zoë Hemmer PA Work Phone: [facility] 10-28-2020 SARS-CoV-2 (COVID-19 ) mRNA-1273 vaccine BRENNA JAY [facility] 10-08-2020 pneumococcal polysaccharide vaccine, 23 valent BRENNA JAY [facility] 09-30-2020 SARS-CoV-2 (COVID-19 ) mRNA-1273 vaccine BRENNA JAY [facility] Comment on above: Result Comment: 2023: [id number] 06-02-2020 influenza virus vacc ine, unspecified formulation BRENNA JAY [facility] 06-02-2020 influenza, high dose seasonal, preservative-free Zoë Hemmer PA Work Phone: [facility] 05-28-2020 influenza virus vacc ine, unspecified formulation BRENNA JAY [facility] 05-28-2020 influenza, seasonal, injectable Zoë Hemmer PA Work Phone: [facility] 05-28-2020 pneumococcal conjuga te vaccine, 13 valent BRENNA JAY [facility] 09-30-2019 tetanus toxoid, redu cole diphtheria toxoid, and acellular pertussis vaccine, adsorbed BRENNA JAY [facility] 06-18-2019 influenza virus vacc ine, unspecified formulation BRENNA JAY [facility] 06-18-2019 Seasonal trivalent influenza vaccine, adjuvanted, preservative free Mohsen Sarabia [facility] 06-06-2018 influenza virus vacc ine, unspecified formulation BRENNA JAY [facility] 06-06-2018 influenza, high dose seasonal, preservative-free Mohsen Sarabia [facility] 06-06-2018 Influenza, High-dose Seasonal, Quadrivalent, Preservative Free Zoë BROWER Work Phone: [facility] 05-22-2017 influenza virus vacc ine, unspecified formulation BRENNA MOSQUERA [facility] 05-22-2017 influenza, injectabl e, quadrivalent, contains preservative Mohsen Sarabia [facility] 07-11-2016 influenza, injectabl e, quadrivalent, preservative free Zoë BROWER Work Phone: [facility] 05-18-2015 influenza virus vacc ine, unspecified formulation BRENNA MOSQUERA [facility] 05-18-2015 influenza, high dose seasonal, preservative-free Mohsen Sarabia [facility] 05-18-2015 pneumococcal conjuga te vaccine, 13 valent Mohsen Sarabia [facility] pneumococcal vaccine , unspecified formulation Mohsen Sarabia MD Work Phone: [facility] pneumococcal vaccine , unspecified formulation Uri Voss DO Work Phone: [facility] Payers Date Payer Category Payer Self-pay [id number] 2024 Unknown [id number] 2019 Private Health Insurance [id number] 2017 Medicare HUMANA MANAGED M EDICARE HUMANA [facility] ADVANTAGE CHOICE PPO xxxxxxxxx 2017-Present xxxxxxxxx [id number] 2017 Medicare HUMANA MANAGED M EDICARE HUMANA [employer] ADVANTAGE CHOICE PPO [id number] 2017-Present [id number]. [id number] 2017 Medicare [id number] 1.13.172. 2.7.3.140556.315 2017 Medicare (Managed Care) 1.2. [id number] [id number] 2017 Medicare PPO [id number]. 1.13.385. [id number] 1959 Unknown [id number] 1939 Unknown [id number] 2.16.840.1.680262.3.579. 2.903 1939 Unknown [id number] 2.16.840.1.300692.3.579. 2.902 1939 Unknown [id number] 2.16.840.1.263475.3.579. 2.903 1939 Unknown [id number] 2.16.840.1.119331.3.579. 2.903 1939 Unknown [id number] 2.16.840.1.734013.3.579. 2.754 1939 Unknown [id number] 2.16.840.1.847296.3.579. 2.593 1939 Unknown [id number] 2.16.840.1.226162.3.579. 2.593 1939 Unknown [id number] 2.16.840.1.658154.3.579. 2.593 1939 Unknown [id number] 2.16.840.1.731427.3.579. 2.593 1939 Unknown [id number] 2.16.840.1.466265.3.579. 2.983 1939 Unknown [id number] 2.16.840.1.334161.3.579. 2.983 1939 Unknown [id number] 2.16.840.1.529620.3.579. 2.727 1939 Unknown [id number] 2.16.840.1.685944.3.579. 2.173 1939 Unknown [id number] 2.16.840.1.211906.3.579. 2.3 1939 Unknown [id number] 2.16.840.1.794540.3.579. 2. 1939 Unknown [id number] 2.16.840.1.404249.3.579. 2. 1939 Unknown [id number] 2.16.840.1.154208.3.579. 2. 1939 Unknown [id number] 2.16.840.1.911833.3.579. 2.1258 1939 Unknown [id number] 2.16840.1.427822.3.579. 2.1258 1939 Unknown [id number] 2.16.840.1.233720.3.579. 2.1258 1939 Unknown [id number] 2.16.840.1.000384.3.579. 2.1258 1939 Unknown [id number] 2.16.840.1.909757.3.579. 2.1258 1939 Unknown [id number] 2.16840.1.500299.3.579. 2.1258 1939 Unknown [id number] 2.16.840.1.303854.3.579. 2.1258 1939 Unknown [id number] 2.16.840.1.941488.3.579. 2.1258 1939 Unknown [id number] 2.16.840.1.013536.3.579. 2.1258 1939 Unknown [id number] 2.16.840.1.633750.3.579. 2.900 1939 Unknown [id number] 2.16.840.1.799468.3.579. 2.900 1939 Unknown [id number] 2.16.840.1.827170.3.579. 2.900 1939 Unknown [id number] 2.16.840.1.130586.3.579. 2.900 1939 Unknown [id number] 2.16.840.1.743199.3.579. 2.900 1939 Unknown [id number] 2.16.840.1.358724.3.579. 2.594 Unknown HCAP/HFA/FAP Active [id number] Unknown [id number] 2.16.840.1.367776.3.579. 2.531 Unknown [id number] 2.16.840.1.149242.3.579. 2.531 Unknown [id number] 2.16.840.1.529555.3.579. 2.531 Unknown [id number] 2.16.840.1.029473.3.579. 2.531 Social History Date Type Detail Facility Start: 09-10-2018 End: 07-14-2022 Tobacco smoking status ALIS Never smoker [facility] Start: 1940 Sex Assigned At Not on file [facility] Start: 10-09-2019 End: 05-02-2025 Alcohol intake Ex-drinker (finding) [facility] Start: 10-21-2019 End: 07-14-2022 Tobacco use and exposure Never used [facility] Start: 11-24-2021 End: 05-09-2025 Alcohol intake Current non-drinker of alcohol (finding) [facility] Start: 12-11-2021 End: 11-03-2022 Exposure to SARS-CoV-2 (event) Not sure [facility] Start: 09-04-2018 End: 05-09-2025 Cigarette pack-years [facility] Start: 11-30-2022 End: 05-09-2025 Sex Assigned At [facility] [facility] [facility] Start: 1940 Sex Assigned At Male [facility] Tobacco smoking status Never [facility] Start: 07-16-2018 Gender identity Identifies as male gender (finding) [facility] Start: 09-04-2018 Sexual orientation Heterosexual (finding) [facility] Start: 04-15-2023 Alcohol Comment Coffee [...] Never true [facility] Tobacco smoking stat [facility] Tobacco smoking consumption unknown [email or web address] Work Phone: Start: 10-31-2022 History SDOH Alcohol Frequency 1 [email or web address] Work Phone: Start: 10-31-2022 History SDOH Alcohol Std Drinks 0 [place] EXTENDED STAYS Phone: How often do you nee d to have someone help you when you read instructions, pamphlets, or other written material from your doctor or pharmacy [SILS] Rarely [facility] Start: 09-30-2012 Sex Male (finding) [facility] Start: 05-06-2025 End: 05-08-2025 SDOH Follow up SDOH Follow up [facility] Work Phone: Medical Equipment Procedure Code Equipment Code Equipment Origin al Text Equipment Identifier Dates Hemostat 2 X 4in Surgicel Fibrillar - [id number] Start: 09-07-2018 Hemostat 2 X 4in Surgicel Fibrillar - [id number] Start: 09-07-2018 Hemostat 2 X 4in Surgicel Fibrillar - [id number] Start: 09-07-2018 Hemostat 2 X 4in Surgicel Fibrillar - [id number] Start: 09-07-2018 Hemostat 2 X 4in Surgicel Fibrillar - [id number] Start: 09-07-2018 Hemostat 2 X 4in Surgicel Fibrillar - [id number] Start: 09-07-2018 Hemostat 2 X 4in Surgicel Fibrillar - [id number] Start: 09-07-2018 Hemostat 2 X 4in Surgicel Fibrillar - [id number] Start: 09-07-2018 Hemostat 2 X 4in Surgicel Fibrillar - [id number] Start: 09-07-2018 Hemostat 2 X 4in Surgicel Fibrillar - [id number] Start: 09-07-2018 Hemostat 2 X 4in Surgicel Fibrillar - [id number] Start: 09-07-2018 Hemostat 2 X 4in Surgicel Fibrillar - [id number] Start: 09-07-2018 Hemostat 2 X 4in Surgicel Fibrillar - [id number] Start: 09-07-2018 Hemostat 2 X 4in Surgicel Fibrillar - [id number] Start: 09-07-2018 Hemostat 2 X 4in Surgicel Fibrillar - [id number] Start: 09-07-2018 Hemostat 2 X 4in Surgicel Fibrillar - [id number] Start: 09-07-2018 Hemostat 2 X 4in Surgicel Fibrillar - [id number] Start: 09-07-2018 Hemostat 2 X 4in Surgicel Fibrillar - [id number] Start: 09-07-2018 Coral Altrx Polyethylene Acetabular Liner Neutral 36mm Id 62mm Od [id number] Start: 07-15-2021 Angio-Seal 6f Vi p - [id number] FDA Start: 08-09-2018 Palacos Lv 1x40 Single - [id number] Start: 07-15-2021 Hemostat 2 X 4in Surgicel Fibrillar - [id number] Start: 03-17-2025 Sealant 10ml Hemostatic Matrix Fast Prep Floseal W/Recothrom - [id number] ()[id number] FDA Start: 03-17-2025 Coral Griptio n Acetabular Shell Sector 62mm Od [id number] Start: 07-15-2021 Biolox Delta Cer amic Femoral Head +1.5 36mm Jaki 08/10 Taper [id number]_[facility] Start: 07-15-2021 [place] Femoral S tem 08/10 Taper Size 7 Mi 133mm [id number] Start: 07-15-[address] em Centralizer 12.0mm Cemented [id number]_[facility] Start: 07-15-2021 Smart Flex 5x120 x120 - [id number] ()[id number]_[facility] FDA Start: 08-09-2018 Smart Flex 6x120 x120 - [id number] ()[id number], [id number]_[facility] FDA Start: 08-09-2018 Palacos R 1 X 40 - [id number]_[facility] Start: 07-15-2021 Goals Date Patient Goal Desired Activity /State [...] PLOF. Functional Status Date Assessment Result Facility 05-09-2025 Are you deaf, or do you have serious difficulty hearing No 05/09/2025 11:00 AM Lexi Beverly, VAN No [facility] 05-09-2025 Are you blind, or do you have serious difficulty seeing, even when wearing glasses No 05/09/2025 11:00 AM Lexi Beverly, RN No [facility] 05-09-2025 Do you have serious difficulty walking or climbing stairs No 05/09/2025 11:00 AM Lexi Beverly, RN No [facility] 05-09-2025 Do you have difficul ty dressing or bathing No 05/09/2025 11:00 AM Lexi Beverly, RN No [facility] 05-09-2025 Because of a physica l, mental, or emotional condition, do you have difficulty doing errands alone such as visiting a physician's office or shopping No 05/09/2025 11:00 AM Lexi Beverly, VAN No [facility] 05-02-2025 Functional status Patient at Baseline [facility] Work Phone: 05-02-2025 Patient Health Quest ionnaire 2 item (PHQ-2) [Reported] [facility] 04-14-2025 Patient Health Quest ionnaire 2 item (PHQ-2) [Reported] [facility] 04-08-2025 Patient Health Quest ionnaire 2 item (PHQ-2) [Reported] [facility] 03-31-2025 Patient Health Quest ionnaire 2 item (PHQ-2) [Reported] [facility] 01-09-2025 Patient Health Quest ionnaire 2 item (PHQ-2) [Reported] [facility] 12-26-2023 Functional Status N/A [facility] 12-20-2022 Functional Status N/A [facility] Mental Status Date Assessment Result Facility 05-09-2025 Because of a physica l, mental, or emotional condition, do you have serious difficulty concentrating, remembering, or making decisions No 05/09/2025 11:00 AM Lexi [place], [facility] 05-02-2025 Cognitive function Cognitive Sta tus Patient at [facility] Work Phone: Clinical Notes 11-24-2021 to 05-13-2025 Rafaela Garcia MD - 05/13/2025 11:45 AM Esme Garcia MD - 05/13/2025 11:45 AM Enoc Carpenter RCP - 05/13/2025 9:54 AM Toya Medina PTA - 05/13/2025 9:03 AM EDTDischarge InstructionsAttachments Note Date & Type Note Facility 05-13-2025 Hospital course Narrative Images from the original note were not included. Hospital Medicine Discharge Summary Patient Name Tristin Powell Sr. Age (Date of ) 85 y.o. (1940) Admit Date 05/09/2025 Discharge Date 05/13/2025 Inpatient Days 3 Primary Diagnoses Hemoptysis due to Pneumonia AECOPD Action Items Follow-up with pulmonary locally in 4-[address] chest at that time to ensure PNA resolution Dear Doctors, I recently had the opportunity to care for Tristin Powell Sr. during his recent hospital stay at [facility]. As you may know, Mr. Powell is an 85 y/o M with a PMH of CAD, PAD s/p recent SFA-peroneal bypass, chronic R toe osteomyelitis, HTN, HLD, BPH who presented as a transfer from an OSH for evaluation for hemoptysis. He had been hospitalized for the past week and treated for streptococcal and pseudomonas pneumonia as well as AECOPD. His hemoptysis was felt to be progressing and he was transferred to [facility] for evaluation for embolization. On admission his hemoptysis was low volume and remained so during admission. His anticoagulation was held and he was maintained on TXA nebs and another prednisone taper at the recommendation of the pulmonary service. He also completed his course of antibiotics for his pneumonia. Repeat respiratory culture here showed normal oropharyngeal microbes. His anticoagulation as resumed and he was tolerating this with stable hemoglobin at the time of discharge. Discussed return precautions with him and discussed calling his vascular surgeon to ask how long he requires the Xarelto. He will follow-up with pulmonary locally, per his request, in 4-6 weeks and we recommend repeat CT chest at that time to ensure resolution of his pneumonia. Pulmonary recommended only albuterol and a prednisone taper on discharge. The latter was sent to his pharmacy on discharge. Upon discharge the patient's code was Full Code Please see the remainder of this document for relevant data from this admission as well as the patient's discharge instructions and follow-up appointments.. An electronic copy of the patient's records can be obtained via [facility] at [email or web address] It has been my pleasure participating in this patient's care. Please contact me with any questions or concerns regarding his hospital stay. The total time of discharge was 32 minutes. Sincerely, Rafaela Garcia MD Division of Hospital Medicine Relevant Data from this Admission Vitals BP: 150/68 Pulse (Heart Rate): 72 Resp Rate: 18 Temp: 97.5 F (36.4 C) O2 Sat (%): 96 % Weight: 108.9 kg (240 lb) Physical Exam on Discharge Resp: Minimal wheezes b/l, much more air movement than prior, normal work of breathing CV:: RRR, normal S1 and S2, trace OSCAR Psych: Ox3, appropriate affect and cognition Recent Labs 05/11/25 0353 05/12/25 0509 05/13/25 0438 WBC 6.50 5.52 -- HGB 11.1* 10.0* -- PLATELET 211 215 -- SODIUM 138 -- -- POTASSIUM 3.6 -- -- CO2 22 -- -- ANIONGAP 14 -- -- BUN 20 -- -- CREATSERUM 0.89 0.78 0.77 AST 34 -- -- ALT 99* -- -- ALKPHOS 72 -- -- BILITOTAL 0.6 -- -- BILIDIRECT 0.2 -- -- BMI (Calculated): 30.9 Patient Instructions on Discharge No future appointments. [place] [address] Flash Lovelace MD [address] [place] [address] Schedule an appointment as soon as possible for a visit Medication List START taking these medications predniSONE 10 MG TABS Commonly known as: DELTASONE Take 3 tablets by mouth daily for 4 days, THEN 2 tablets daily for 4 days, THEN 1 tablet daily for 4 days. Start taking on: May 13, 2025 CHANGE how you take these medications * Tamsulosin HCl 0.4 MG CAPS Commonly known as: FLOMAX Take 1 capsule by mouth daily. Start taking on: May 14, 2025 What changed: when to take this * Tamsulosin HCl 0.4 MG CAPS Commonly known as: FLOMAX What changed: Another medication with the same name was changed. Make sure you understand how and when to take each. * This list has 2 medication(s) that are the same as other medications prescribed for you. Read the directions carefully, and ask your doctor or other care provider to review them with you. CONTINUE taking these medications * Albuterol (2.5 MG/3ML) 0.083% inhalation solution Commonly known as: PROVENTIL * Albuterol 108 (90 Base) MCG/ACT AERS inhaler ASPIRIN 81 PO atorvastatin 80 MG TABS Commonly known as: LIPITOR azelastine 0.1 % SOLN nasal spray Commonly known as: ASTELIN 1 spray by Nasal route daily as needed. Use in each nostril as directed fluticasone 50 MCG/ACT SUSP nasal spray Commonly known as: FLONASE 1 spray by Nasal route daily as needed. furOSEmide 20 MG TABS Commonly known as: LASIX Take 1 tablet by mouth daily as needed. Losartan 50 MG TABS Commonly known as: COZAAR Metoprolol 50 MG tab regular release Commonly known as: LOPRESSOR nitroGLYCERIN 0.4 MG tablet SL Commonly known as: NITROSTAT omeprazole [address] capsule Commonly known as: PRILOSEC Take 1 capsule by mouth daily. oxyCODONE-acetaminophen 5-325 MG per tablet Commonly known as: PERCOCET Polyethylene glycol 17 g PACK packet Commonly known as: MIRALAX rivaroxaban 2.5 MG TABS Commonly known as: XARELTO Santyl 250 UNIT/GM OINT Generic drug: collagenase Sulfamethoxazole-trimethoprim 400-80 MG per tablet Commonly known as: BACTRIM zolpidem 10 MG TABS Commonly known as: AMBIEN * This list has 2 medication(s) that are the same as other medications prescribed for you. Read the directions carefully, and ask your doctor or other care provider to review them with you. STOP taking these medications Amoxicillin-clavulanate 500-125 MG tablet Commonly known as: AUGMENTIN Where to Get Your Medications These medications were sent to [facility] [id number] [place] [address] - [address] [facility] [id number] predniSONE 10 MG TABS documented in this encounter [facility] 05-13-2025 Hospital course Narrative Images from the original note were not included. Hospital Medicine Discharge Summary Patient Name Tristin Powell Sr. Age (Date of ) 85 y.o. (1940) Admit Date 05/09/2025 Discharge Date 05/13/2025 Inpatient Days 3 Primary Diagnoses Hemoptysis due to Pneumonia AECOPD Action Items Follow-up with pulmonary locally in 4-[address] chest at that time to ensure PNA resolution Dear Doctors, I recently had the opportunity to care for Tristin Powell Sr. during his recent hospital stay at [facility]. As you may know, Mr. Powell is an 85 y/o M with a PMH of CAD, PAD s/p recent SFA-peroneal bypass, chronic R toe osteomyelitis, HTN, HLD, BPH who presented as a transfer from an OSH for evaluation for hemoptysis. He had been hospitalized for the past week and treated for streptococcal and pseudomonas pneumonia as well as AECOPD. His hemoptysis was felt to be progressing and he was transferred to [facility] for evaluation for embolization. On admission his hemoptysis was low volume and remained so during admission. His anticoagulation was held and he was maintained on TXA nebs and another prednisone taper at the recommendation of the pulmonary service. He also completed his course of antibiotics for his pneumonia. Repeat respiratory culture here showed normal oropharyngeal microbes. His anticoagulation as resumed and he was tolerating this with stable hemoglobin at the time of discharge. Discussed return precautions with him and discussed calling his vascular surgeon to ask how long he requires the Xarelto. He will follow-up with pulmonary locally, per his request, in 4-6 weeks and we recommend repeat CT chest at that time to ensure resolution of his pneumonia. Pulmonary recommended only albuterol and a prednisone taper on discharge. The latter was sent to his pharmacy on discharge. Upon discharge the patient's code was Full Code Please see the remainder of this document for relevant data from this admission as well as the patient's discharge instructions and follow-up appointments.. An electronic copy of the patient's records can be obtained via [facility] at [email or web address] It has been my pleasure participating in this patient's care. Please contact me with any questions or concerns regarding his hospital stay. The total time of discharge was 32 minutes. Sincerely, Rafaela Garcia MD Division of Hospital Medicine Relevant Data from this Admission Vitals BP: 150/68 Pulse (Heart Rate): 72 Resp Rate: 18 Temp: 97.5 F (36.4 C) O2 Sat (%): 96 % Weight: 108.9 kg (240 lb) Physical Exam on Discharge Resp: Minimal wheezes b/l, much more air movement than prior, normal work of breathing CV:: RRR, normal S1 and S2, trace OSCAR Psych: Ox3, appropriate affect and cognition Recent Labs 05/11/25 0353 05/12/25 0509 05/13/25 0438 WBC 6.50 5.52 -- HGB 11.1* 10.0* -- PLATELET 211 215 -- SODIUM 138 -- -- POTASSIUM 3.6 -- -- CO2 22 -- -- ANIONGAP 14 -- -- BUN 20 -- -- CREATSERUM 0.89 0.78 0.77 AST 34 -- -- ALT 99* -- -- ALKPHOS 72 -- -- BILITOTAL 0.6 -- -- BILIDIRECT 0.2 -- -- BMI (Calculated): 30.9 Patient Instructions on Discharge No future appointments. [place] [address] Flash Lovelace MD [address] [place] [address] Schedule an appointment as soon as possible for a visit Medication List START taking these medications predniSONE 10 MG TABS Commonly known as: DELTASONE Take 3 tablets by mouth daily for 4 days, THEN 2 tablets daily for 4 days, THEN 1 tablet daily for 4 days. Start taking on: May 13, 2025 CHANGE how you take these medications * Tamsulosin HCl 0.4 MG CAPS Commonly known as: FLOMAX Take 1 capsule by mouth daily. Start taking on: May 14, 2025 What changed: when to take this * Tamsulosin HCl 0.4 MG CAPS Commonly known as: FLOMAX What changed: Another medication with the same name was changed. Make sure you understand how and when to take each. * This list has 2 medication(s) that are the same as other medications prescribed for you. Read the directions carefully, and ask your doctor or other care provider to review them with you. CONTINUE taking these medications * Albuterol (2.5 MG/3ML) 0.083% inhalation solution Commonly known as: PROVENTIL * Albuterol 108 (90 Base) MCG/ACT AERS inhaler ASPIRIN 81 PO atorvastatin 80 MG TABS Commonly known as: LIPITOR azelastine 0.1 % SOLN nasal spray Commonly known as: ASTELIN 1 spray by Nasal route daily as needed. Use in each nostril as directed fluticasone 50 MCG/ACT SUSP nasal spray Commonly known as: FLONASE 1 spray by Nasal route daily as needed. furOSEmide 20 MG TABS Commonly known as: LASIX Take 1 tablet by mouth daily as needed. Losartan 50 MG TABS Commonly known as: COZAAR Metoprolol 50 MG tab regular release Commonly known as: LOPRESSOR nitroGLYCERIN 0.4 MG tablet SL Commonly known as: NITROSTAT omeprazole [address] capsule Commonly known as: PRILOSEC Take 1 capsule by mouth daily. oxyCODONE-acetaminophen 5-325 MG per tablet Commonly known as: PERCOCET Polyethylene glycol 17 g PACK packet Commonly known as: MIRALAX rivaroxaban 2.5 MG TABS Commonly known as: XARELTO Santyl 250 UNIT/GM OINT Generic drug: collagenase Sulfamethoxazole-trimethoprim 400-80 MG per tablet Commonly known as: BACTRIM zolpidem 10 MG TABS Commonly known as: AMBIEN * This list has 2 medication(s) that are the same as other medications prescribed for you. Read the directions carefully, and ask your doctor or other care provider to review them with you. STOP taking these medications Amoxicillin-clavulanate 500-125 MG tablet Commonly known as: AUGMENTIN Where to Get Your Medications These medications were sent to [facility] [id number] [place] [address] - [address]) [address] [facility] [address] predniSONE 10 MG TABS documented in this encounter [facility] 05-13-2025 History of Present illness Narrative Final Discharge Planning CM met with patient at bedside and patient was agreeable to [facility] and using [facility] home care. Final Discharge Planning Discharge Disposition: Home with Home Health Selected Continued Care - Admitted Since 05/09/2025 Home Medical Care Coordination complete. Service Provider Services Address Phone Fax Patient Preferred [employer] [facility] [employer] [facility] [address] [place], [place] [id number] [phone] -- Community Agency Name(s) For Handoff: [facility] [employer] Phone For Handoff: [phone] Fax For Handoff: [phone] Plan Plan: Patient will discharge home with [facility]. Patient/Family In Agreement With Plan: yes Alejandra Grey (Teresa), BEFORE SCHOOL BABYSITTER, [facility] Clinical Allergist/Immunologist Physician [facility] #[phone] Acute Physical Therapy Treatment Prior Gross Functional Mobility: independent Current AM-PAC score(s): 20 CURRENT AM-PAC Mobility Raw Score: 20 Based on the above AM-PAC score(s) and PT clinical judgment, patient is a good candidate for discharge to Home with Home Health Barriers to discharge home: Patient needs assistance with functional mobility Mobility equipment available at home: front-wheeled walker, rollator, straight cane ADL equipment available at home: elevated toilet seat, shower chair Equipment needed for discharge: none Current therapy frequency recommendation in acute: PT Therapy Frequency: 5 times a week Activity Recommendations for outside of rehab session: x1 assist to bed/chair Precautions and Weightbearing Status: Existing Precautions/Restrictions: fall Patient Safety Communication Prior to Visit: Nursing Current brace/orthoses: Left, Right (friedman padded boot and R post op shoe (pt declines use of it)) Current brace/orthoses wear schedule: When out of bed Subjective: Pt on EOB upon arrival and agreeable to therapy. Pain: General Pain Documentation (Adult, OB, Peds) Presence of Pain: reports pain/discomfort Pain Location: leg, left DVPRS (Defense and Veterans Pain Rating Scale) DVPRS: Rest: (no pain score given, a little pain ) Objective/Observation: Vitals/Vitals Responses to Treatment: Vitals appear WFL without any overt reactions. O2 Device: room air Cognition Overall Cognitive Status: Within Functional Limits Extremity Assessments: See PT Evaluation flowsheet for Extremity Measurement updates. Skin and Edema: Balance: Sitting Balance Static Sitting-Level of Assistance: Modified independent Dynamic Sitting-Level of Assistance: Modified independent Skilled Rationale: Verbal cues, Initiation and execution of task Sitting Balance Skilled Intervention/Details: At EOB with balance challenged with eating, and turning to look over shoulder, without LOB Standing Balance Static Standing-Level of Assistance: Supervision Dynamic Standing-Level of Assistance: Supervision Standing-Balance Support: Front-wheeled walker Skilled Rationale: Verbal cues, Initiation and execution of task Standing Balance Skilled Intervention/Details: at EOB and chair with/without AD and no LOB Mobility Assessment/Intervention: Transfer Assessment/Intervention: Sit to Stand Transfer Wells Level: Sit->Stand: supervision Assistive Device: Sit->Stand: front-wheeled walker Skilled Rationale: Verbal cues, Initiation and execution of task Skilled Intervention/Details: Sit->Stand: Pt tolerates x2 from EOB and x1 from chair without LOB with use of UEs. Stand to Sit Transfer Wells Level: Stand->Sit: supervision Assistive Device: Stand->Sit: front-wheeled walker Skilled Rationale: Verbal cues, Initiation and execution of task Skilled Intervention/Details: Stand->Sit: x1 to bed and x2 to chair Gait/Functional Mobility Assessment/Intervention: Gait Assessment Wells Level: Gait: supervision Assistive Device: Gait: front-wheeled walker Ambulation Distance (Feet): 70 Gait Deviations Identified: antalgic, decreased pamela, flexed posture Gait Skilled Rationale: verbal, upright posture Skilled Intervention/Details - Gait: Pt declines adjusting height of AD and prefers a lower height. He requrests and performs gait training at less distance today due to feeling tired after walking yesterday. Pt demonstrates improved control of AD Stairs Assessment/Intervention: Stairs Assessment Wells Level: Stair Negotiation: stand-by assist Assistive Device: Stair Negotiation: jonathan walker Number of stairs: 1 (x2) Stairs Skilled Rationale: verbal, general safety Skilled Intervention/Details - Stairs: Pt declines stair training initially but with encouragement he performs stepping up on a curb step x2 with vc for stepping up with R and down with left (backed down) Outcome Score(s): CURRENT [facility] Basic Mobility Inpatient Short Form Turning over in bed: 4 - No Assistance Moving from lying on back to sittin - No Assistance Moving to and from bed to chair: 3 - A Little Assistance Sitting/standing from chair: 3 - A Little Assistance Walk in hospital room: 3 - A Little Assistance Climbing 3-5 steps with a railin - A Little Assistance CURRENT [facility] Mobility Raw Score: 20 CURRENT [facility] Mobility Functional Limitation: 35.83% Impaired in Basic Mobility Interventions: Assessment & Plan: Pt tolerates session without any overt reactions. He continues to require skilled services for improved transfers and functional mobility. Pt performs gait training and transfers and stair training. He demonstrates improving strength and activity tolerance. Pt is progressing toward goals. Patient Instruction/Education this session: Learners: Patient Education provided: Gait training safety, Activity outside of therapy, Fall precautions, Functional transfers Plan for next session: progress gait distance if not dc Acute PT Goals Plan of Care by Sakshi Medina PTA at 05/13/2025 9:03 AM Version 1 of 1 Problem: PT - General Goals Goal: Sit <-> Stand Transfers - Patient will perform sit to/from stand transfers with independence and least restrictive device in order to improve functional mobility and safety. Outcome: Progressing Goal: Ambulation - Patient will ambulate 200 feet with independence and least restrictive device to improve ability to safely navigate home and community. Outcome: Ongoing Goal: Stairs - Patient will ascend/descend 1 stairs with independence, least restrictive device, and single railing(s) to improve ability to safely navigate home and community. Outcome: Progressing PT treatment consisted of the following to progress towards the above goal(s): PT Evaluation and Treatment Time Therapeutic Activity Time Entry: 15 Gait Training Time Entry: 8 Treating Therapist: Sakshi Medina PTA Additional Details: PT Co-Eval/Treatment Information Co-evaluation/co-treatment performed?: No simultaneous skilled care performed PPE used during patient interaction: gloves, facemask, gown Patient location at end of session: chair Alarms on at end of session: none altered Needs in reach. Time In: 902 Time Out: 929 Total Visit Time: 27 minutes Total Treatment Time (skilled, billable minutes): 23 minutes Upon discontinuation of Acute Care Physical Therapy Services or patient discharge from the hospital this note represents the current Physical Therapy Discharge Summary. Cosigned by Maggy Almaraz PT at 05/13/2025 3:16 PM EDT Associated attestation - Maggy Almaraz, PT - 05/13/2025 3:16 PM EDT This note was reviewed to reflect the patient's clinical status and the treatment plan. I have read and agree with this note. Maggy Almaraz PT Pulmonary Inpatient Consult Follow Up Note We saw Mr. Tristin Powell in follow-up on 05/12/2025. Impression: Hemoptysis PNA - infected bullae from report COPD Exacerbation Rhinoviral infection Continued Recommendations: Cont off antibiotics per ID Cont prednisone taper Cont duonebs Patient will NOT need chronic bronchodilators post discharge Follow on Xarelto Will need pulmonary follow-up 6 weeks after discharge Interim History Continued coughing. Otherwise, up and moving well. Feels that cefepime increased chest congestion. Exam and Objective Data: Physical Exam Temp: [97.8 F (36.6 C)-98.3 F (36.8 C)] 97.8 F (36.6 C) Pulse (Heart Rate): [71-78] 75 Resp Rate: [18-20] 18 BP: (151-178)/(67-82) 151/69 O2 Sat (%): [94 %-97 %] 96 % Intake/Output Summary (Last 24 hours) at 05/12/2025 1702 Last data filed at 05/12/2025 1608 Gross per 24 hour Intake 1764.72 ml Output 1325 ml Net 439.72 ml Fluid Management (24hrs): -Intake/Output for last 24 Hours: I/O last 3 completed shifts: In: - Out: 1325 [Urine:1325] GEN: pleasant, no acute distress HEENT: PERRL, sclera non-icteric, oropharynx clear, moist mucous membranes. Neck supple. No LAD. LUNGS: Diminished CV: RRR. No murmurs, rubs or gallops. No JVD ABD: Soft EXTR: no edema, clubbing, or cyanosis. S/p L amputation LE NEURO: MEWS Score (Validated): -- RASS: 0-->alert and calm (05/12 1205) Ventilation/Oxygen Therapy (24hrs): Oxygen Therapy O2 Sat (%): 96 % O2 Device: room air Laboratory Data: Lab Results Component Value Date SODIUM 138 05/11/2025 SODIUM 139 06/17/2021 POTASSIUM 3.6 05/11/2025 POTASSIUM 4.5 06/17/2021 CHLORIDE 106 05/11/2025 CHLORIDE 105 06/17/2021 CO2 22 05/11/2025 CO2 26 06/17/2021 BUN 20 05/11/2025 BUN 17 06/17/2021 CREATSERUM 0.78 05/12/2025 CREATSERUM 1.05 06/17/2021 TROP 0.02 10/31/2018 WBC 5.52 05/12/2025 WBC 10.0 07/16/2021 HGB 10.0 (L) 05/12/2025 HGB 11.7 (L) 07/16/2021 HCT 29.7 (L) 05/12/2025 HCT 34.2 (L) 07/16/2021 PLATELET 215 05/12/2025 PLATELET 127 (L) 07/16/2021 PT 14.4 (H) 05/09/2025 PT 13.7 06/17/2021 PTT 23.6 (L) 05/09/2025 PTT 106.8 (H) 09/04/2018 INR 1.1 05/09/2025 INR 1.03 06/17/2021 Imaging: I have personally and interpreted reviewed the radiographic data in [facility]. Thank you for the consultation. Please call with questions. Beena Nguyen MD MPH [id number] Images from the original note were not included. DIVISION OF INFECTIOUS DISEASES FOLLOW UP NOTE - TEAM 5 SUBJECTIVE/INTERVAL HISTORY: Pt is a 85 y.o. male being followed by ID for CAP with c/f infected bullae. He reports feeling improved off antibiotics. He feels the antibiotics caused him chest tightness. Continues with intermittent coughing episodes. REVIEW OF SYSTEMS: As above Fall Risk: Assessed for patient fall risk and communicated pertinent findings to multidisciplinary team. MEDICATIONS reviewed, antimicrobials include: aspirin 81 mg Oral Daily atorvastatin 80 mg Oral Daily collagenase 1 Application Topical Daily Ipratropium-albuterol 3 mL Nebulization Q6H Losartan 25 mg Oral Daily Metoprolol 50 mg Oral BID Pantoprazole 40 mg Oral Daily Polyethylene glycol 17 g Oral BID predniSONE 40 mg Oral Daily Followed by [START ON 05/14/2025] predniSONE 30 mg Oral Daily Followed by [START ON 05/18/2025] predniSONE 20 mg Oral Daily Followed by [START ON 05/22/2025] predniSONE 10 mg Oral Daily Rivaroxaban 2.5 mg Oral BID Senna 8.6 mg Oral BID Tamsulosin HCl 0.4 mg Oral Daily PHYSICAL EXAM: Vitals: BP 164/82 Pulse 71 Temp 98.2 F (36.8 C) (Oral) Resp 18 Ht 1.88 m (6' 2 ) Wt 108.9 kg (240 lb) SpO2 95% BMI 30.81 kg/m Smoking Status Never General: The patient is a well-developed, well-nourished male in no apparent distress. HEENT: Head is normocephalic and atraumatic. Conjunctiva clear. Neck: Supple. Heart: Regular, rate and rhythm without murmurs appreciated. Lungs: Clear to auscultation bilaterally with no wheezes, rhonchi or rales noted. Abdomen: Soft, nontender, and nondistended. Normal bowel sounds x4 quads. Extremities: Without edema. Neurologic:Alert and cooperative. Skin: Toe wound reviewed under media tab. No rash noted on exposed skin. Psych: Pleasant mood with appropriate affect Central Line Type: n/a LABS: WBC/Hgb/Hct/Plts: 5.52/10.0/29.7/215 (05/12 0509) Lab Results Component Value Date RBCDISTRIBU 14.5 (H) 05/12/2025 GRNLOCYT 77.5 05/12/2025 LYMPHOCYT 10.7 05/12/2025 MONOCYTELEC 8.9 05/12/2025 EOSINOPHILS 0.9 05/12/2025 BASOPHILS 0.2 05/12/2025 GRNLOCTYABS 1.8 09/01/2011 LYMPHOCYTABS 0.59 (L) 05/12/2025 MONOSABSOLU 0.6 09/01/2011 EOSINOPHLABS 0.05 05/12/2025 BASOPHILSABS 0.0 09/01/2011 PLATELET 215 05/12/2025 MPV 9.4 05/12/2025 Bun/Creat/Cl/CO2/Glucose: --/0.78/--/--/-- (05/12 0509) Lab Results Component Value Date ALT 99 (H) 05/11/2025 AST 34 05/11/2025 ALKPHOS 72 05/11/2025 BILITOTAL 0.6 05/11/2025 BILIDIRECT 0.2 05/11/2025 Lab Results Component Value Date SEDRATE 120 (H) 05/10/2025 SEDRATE 4 09/02/2011 Lab Results Component Value Date CRP 37.48 (H) 05/10/2025 CRP 1.39 09/01/2011 Urinalysis Lab Results Component Value Date SPGRVTYUR 1.020 06/17/2021 GLUCOSEURINE NEGATIVE 06/17/2021 BILIRUBINURI NEGATIVE 06/17/2021 KETONESURINE NEGATIVE 06/17/2021 BLOODURINE NEGATIVE 09/01/2011 NITRITESURIN NEGATIVE 06/17/2021 LEUKOCESTUR NEGATIVE 06/17/2021 WBCURINE NEGATIVE 08/01/2018 RBCURINE NEGATIVE 08/01/2018 BACTERIAURIN NEGATIVE 08/01/2018 Microbiology: [facility] 05/02/25 - RVP - rhinovirus 05/02/25 - covid neg 05/04/25 - Scx 1) strep pneumo S: levo (1), vanco (0.5), I: amox/clav (4/2), cefepime (2), ceftriaxone (1). R: cefuroxime (>2), sung (>0.5), PCN (4), tetra (>4), TMP/SMX (>2/38) 2) PSA S: cefepime, ceftaz/elian, ceftolozane/tazo, sung, tobra. IB: aztreo (<4), ceftaz (IB), pip/tazo (<8). R: cipro (2) 9/7/25 - MRSA nares neg 05/05/25 - Scx nl cameron 05/06/25 - legionella ag neg 05/06/25 - strep pneumo ag neg [facility] cx: 05/10 LRT - contaminated Imaging: US ABDOMEN RUQ/LIVER/GB Final Result IMPRESSION: 1. Hepatic steatosis. 2. Gallstones without cholecystitis. ANKLE BRACHIAL INDEX (Results Pending) ASSESSMENT: Tristin Powell Sr. is a 85 y.o. male with a PMH; of CAD, PAD s/p SFA-peroneal bypass 02/2025, HTN, HLD, BPH, A fib, CKD3a and toe wound being treated by local podiatry. He was admitted to [facility] 05/[address] chest revealing 10 cm air-filled collection in LLL c/f infected bullae vs abscess. He was transferred to [facility] due to worsening hemoptysis and potential need for embolization. His initial sputum cx at OSH grew pneumococcus. He was placed on IV vanc/ cefepime. He was evaluated by pulmonary. He has completed 7 days of antibiotics with clinical improvement noted. Will plan to monitor off antibiotics. Patient was advised of the plan. CAP Rhinovirus Probable infected bullae - treated Hemoptysis - improving COPD PAD Toe ulcer - follows with outside podiatry -Estimated Creatinine Clearance: 89 mL/min (by C-G formula based on SCr of 0.78 mg/dL). RECOMMENDATIONS: Monitor off antibiotics Follow up with podiatry and pulm after discharge . Recommendations provided to primary team. ID Team 5 will sign off. Please call with questions. ID ATTENDING: Dr Jeane APRN, MS, Adult GAME ENGINEER-C Infectious Diseases Pager [phone] Cosigned by Fidel Nguyen MD, PhD at 05/12/2025 4:46 PM EDT Associated attestation - Fidel Nguyen MD, PhD - 05/12/2025 4:46 PM EDT ID Staff: I have interviewed and examined patient independently (05-12-25) and have discussed case with the ID GAME ENGINEER. In addition, the chart, labs, micro, radiology, and vitals reviewed. I agree with the findings and recommendations as documented above by Rhonda Yoon CNP which reflect our combined clinical decision making. Fidel Nguyen MD, PhD Division of Infectious Diseases [facility] Medicine Progress Note Patient: Tristin Powell ., : 1940, Impression / Plan Acute bronchitis 2/2 rhinovirus CAP - strep pneumo and pseudomonas Lung abscess vs infected bullae- review of imaging seems to favor bullae Hemoptysis, non massive CT chest on 05/04 showing bilateral patchy infiltrates, 10 cm air-fluid collection LLL c/f infected bullae vs abscess. Images pushed to out system - Appreciate pulm recs. Cont. prednisone taper. Ok to resume anticoagulation and monitor today - Cont. Nebs. Recommend albuterol at discharge and follow-up outpatient pulm for review of repeat CT and further eval of COPD - appreciate ID recs. Since sputum culture negative and he's received > 8 days of therapy this should be sufficient for PNA. Will stop antibiotics - Cont. Codeine/robitussin, has cough drops at bedside - if he starts having massive hemoptysis needs stat CTA and IR for embolization - Anticipate may be able to head home tomorrow if he remains stable. Ok for transfer to the floor. History of left upper lobe nodule - not specifically commented on on recent CT. Per patient, this resolved. Transaminitis - RUQ US with steatosis but no masses - chronic hep battery negative COPD exacerbation (resolved) with large emphesematous component No wheezing, less overall air movement today. - Extending prednisone therapy per taper by pulm - breathing treatments as above - needs outpatient pulm follow-up with repeat CT - pulm only wants albuterol at discharge Acute hypoxic resp failure - resolved At [facility] requiring o2. 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 No e/o SSTI currently. I did mention that he will need to stop his anticoagulation again outpatient if he plans to have toe amputated closer to home - resume aspirin and Xarelto today CAD x7 stents HDL - ASA as above - cont atorvastatin HTN - remains hypertensive but says he's better at home and doesn't desire increasing meds - cont losartan, metop BPH - cont flomax GERD - cont PPI Problem list reviewed at admission. Quality Self-Check Complexity. . Obesity, class I Body mass index is 30.81 kg/m . - Follow with PCP for dietary and lifestyle modifications. Wound Documentation Wound Vascular Ulcer Arterial 05/09/25 0941 Anterior;Right Foot (Active) Date First Assessed/Time First Assessed: 05/09/25940 Primary Wound Type: Vascular Ulcer Secondary Wound Type - Vascular Ulcer: Arterial Present on Original Admission: Yes Wound Location Orientation: Anterior;Right Location: Foot Any conditions listed below are present on admission unless otherwise specified. . DVT prophylaxis with SCD's Anticipated Disposition: home in 1-2 days Code status is Full Code Interval History / Subjective Feeling better. Not coughing as much. Nebs this morning seemed to help him get some gunk out. Bleeding stable to improved. Objective Temp: [97.5 F (36.4 C)-98.3 F (36.8 C)] 98.2 F (36.8 C) Pulse (Heart Rate): [71-86] 71 Resp Rate: [18-22] 18 BP: (152-178)/(67-82) 164/82 O2 Sat (%): [94 %-97 %] 95 % Physical Exam Gen: A, A, NAD ENT: MMM Resp: CTA bilat, more air movement b/l today, normal effort Cardio: RRR, normal S1, S2, No OSCAR GI: S/NT/ND, NABS Psych: Ox3, appropriate affect and cognition Skin: Right great toe ulceration with exposed bone Data Review WBC/Hgb/Hct/Plts: 5.52/10.0/29.7/215 (05/12 0509) Bun/Creat/Cl/CO2/Glucose: --/0.78/--/--/-- (05/12 4526) Resp culture - normal oral cameron Signed, Rafaela Garcia MD Acute Physical Therapy Treatment Prior Gross Functional Mobility: independent Current AM-PAC score(s): 18 CURRENT AM-PAC Mobility Raw Score: 18 Based on the above AM-PAC score(s) and PT clinical judgment, patient is a good candidate for discharge to Home with Home Health Barriers to discharge home: Patient needs assistance with functional mobility Mobility equipment available at home: front-wheeled walker, rollator, straight cane ADL equipment available at home: elevated toilet seat, shower chair Equipment needed for discharge: none Current therapy frequency recommendation in acute: PT Therapy Frequency: 5 times a week Activity Recommendations for outside of rehab session: x1 assist to bed/chair Precautions and Weightbearing Status: Existing Precautions/Restrictions: fall Lines/Tubes/Drains (Rehab Status): No critical lines at this time Patient Safety Communication Prior to Visit: Nursing Current brace/orthoses: Post-op shoe Current brace/orthoses wear schedule: When out of bed (Provided by PT for safety of R great toe during ambulation) Subjective: Pt in bed upon arrival and agreeable to therapy. Pain: General Pain Documentation (Adult, OB, Peds) Presence of Pain: reports pain/discomfort Pain Location: heel, right, leg, left DVPRS (Defense and Veterans Pain Rating Scale) DVPRS: Rest: 5- moderate pain DVPRS: Activity: 5- moderate pain Objective/Observation: Vitals/Vitals Responses to Treatment: Vitals appear WFL without any overt reactions. O2 Device: room air Cognition Overall Cognitive Status: Within Functional Limits Arousal/Alertness: Appropriate responses to stimuli Orientation Level: Oriented X4 Following Commands: Follows one step commands without difficulty Safety Judgment: Decreased awareness of need for assistance, Decreased awareness of need for safety Awareness of Errors: Assistance required to identify errors made, Assistance required to correct errors made Deficits: Fully aware of deficits Attention Span: Appears intact Memory: Appears intact Problem Solving: Able to problem solve independently Extremity Assessments: See PT Evaluation flowsheet for Extremity Measurement updates. Skin and Edema: Balance: Sitting Balance Static Sitting-Level of Assistance: Supervision Dynamic Sitting-Level of Assistance: Standby Skilled Rationale: Verbal cues Sitting Balance Skilled Intervention/Details: No overt LOB while seated EOB Standing Balance Static Standing-Level of Assistance: Stand-by assist Dynamic Standing-Level of Assistance: Contact guard, Stand-by assist Standing-Balance Support: Gait belt, Front-wheeled walker Skilled Rationale: Verbal cues, Initiation and execution of task, Full extension to upright positioning/posture Standing Balance Skilled Intervention/Details: at EOB and windows with pt requiring cues to correct and declines increasing height of ww. Pt tolerates standing at windows ~5 min. Mobility Assessment/Intervention: Supine to Sit Mobility Wells Level: Supine->Sit: stand-by assist Bed Features/Set-up: Supine->Sit: Head of bed elevated, Use of bed rail Skilled Rationale: Verbal cues, Initiation and execution of task Skilled Intervention/Details: Supine->Sit: x1 to EOB Sit to Supine Mobility Wells Level: Sit->Supine: not tested Skilled Intervention/Details: Sit->Supine: pt in chair at end of session Transfer Assessment/Intervention: Sit to Stand Transfer Wells Level: Sit->Stand: contact guard assist Assistive Device: Sit->Stand: gait belt, front-wheeled walker Skilled Rationale: Verbal cues, Initiation and execution of task Skilled Intervention/Details: Sit->Stand: x2 from EOB and x1 from chair Stand to Sit Transfer Wells Level: Stand->Sit: contact guard assist Assistive Device: Stand->Sit: gait belt, front-wheeled walker, armed chair, rail Skilled Rationale: Verbal cues, Initiation and execution of task Skilled Intervention/Details: Stand->Sit: x1 to bed and x2 to chair with cues for safety Gait/Functional Mobility Assessment/Intervention: Gait Assessment Wells Level: Gait: contact guard assist Assistive Device: Gait: gait belt, front-wheeled walker Ambulation Distance (Feet): 90 Gait Deviations Identified: antalgic, decreased pamela, decreased step length, decreased stride length, flexed posture Gait Skilled Rationale: verbal, upright posture Skilled Intervention/Details - Gait: Pt performs gait training in hallway and is cued for energy conservation to maintain safety with gait distance. He performs turn in hallway with pivoting ww on one back support (and quickly). Pt is cued for safer turning with AD. Stairs Assessment/Intervention: Stairs Assessment Wells Level: Stair Negotiation: not tested Outcome Score(s): CURRENT [facility] Basic Mobility Inpatient Short Form Turning over in bed: 4 - No Assistance Moving from lying on back to sittin - A Little Assistance Moving to and from bed to chair: 3 - A Little Assistance Sitting/standing from chair: 3 - A Little Assistance Walk in hospital room: 3 - A Little Assistance Climbing 3-5 steps with a railin - A Lot of Assistance CURRENT [facility] Mobility Raw Score: 18 CURRENT [facility] Mobility Functional Limitation: 46.58% Impaired in Basic Mobility Interventions: Intervention 1 Intervention Name: ther ex Sets/Reps/Duration: x10 Details: pt performs standing ex at the window ledge of knee flex, hip abd and marches for strengthening and improved balance. Assessment & Plan: Pt tolerates session without any overt reactions. He continues to require skilled services for improved transfers and functional mobility. Pt lacks some safety. He amb with use of friedman padded orthotic on L LE (in place of foot) and declines use of post op shoe for gait training this session. Pt performs HEP, transfers and gait with improvements and progressing toward goals. Patient Instruction/Education this session: Learners: Patient Education provided: Gait training safety Plan for next session: progress gait distance, stair/s Acute PT Goals Plan of Care by Sakshi Medina PTA at 05/12/2025 8:18 AM Version 1 of 1 Problem: PT - General Goals Goal: Supine <-> Sit Transfers - Patient will perform supine to/from sit transfers with independence and without use of hospital bed features in order to improve functional mobility and safety. Outcome: Progressing Goal: Sit <-> Stand Transfers - Patient will perform sit to/from stand transfers with independence and least restrictive device in order to improve functional mobility and safety. Outcome: Progressing Goal: Standing Endurance/Balance - Patient will perform standing balance tasks for 15 min with independence and least restrictive device while maintaining an RPE of less than 5/10 to improve endurance and safety with standing tasks. Outcome: Progressing Goal: Ambulation - Patient will ambulate 200 feet with independence and least restrictive device to improve ability to safely navigate home and community. Outcome: Progressing Goal: Strength - Patient will demonstrate understanding of exercise program. Outcome: Progressing PT treatment consisted of the following to progress towards the above goal(s): PT Evaluation and Treatment Time Therapeutic Activity Time Entry: 17 Gait Training Time Entry: 15 Treating Therapist: Sakshi Medina PTA Additional Details: PT Co-Eval/Treatment Information Co-evaluation/co-treatment performed?: No simultaneous skilled care performed PPE used during patient interaction: facemask, gloves, gown Patient location at end of session: chair Alarms on at end of session: none altered Needs in reach. Time In: 0818 Time Out: 0850 Total Visit Time: 32 minutes Total Treatment Time (skilled, billable minutes): 32 minutes Upon discontinuation of Acute Care Physical Therapy Services or patient discharge from the hospital this note represents the current Physical Therapy Discharge Summary. Cosigned by Oscar Gann PT at 05/12/2025 1:41 PM EDT [facility] Medicine Progress Note Patient: Tristin Powell , : 1940, Impression / Plan Acute bronchitis 2/2 rhinovirus CAP - strep pneumo and pseudomonas Lung abscess vs infected bullae- review of imaging seems to favor bullae Hemoptysis, non massive CT chest on 05/04 showing bilateral patchy infiltrates, 10 cm air-fluid collection LLL c/f infected bullae vs abscess. Images pushed to out system - Appreciate pulm recs. Cont. prednisone taper, - Stop TXA. - Breathing treatments q6h - Cont. Codeine/robitussin, has cough drops at bedside - appreciate ID input. Continue current antibiotics. Suspect these can be stopped as it seems strep and pseudomonas have now resolved in respiratory culture. Will discuss with ID - hemoglobin stable currently. - if he starts having massive hemoptysis needs stat CTA and IR for embolization - Plan for tomorrow will be to start home anticoagulation and monitor. History of left upper lobe nodule - not specifically commented on on recent CT. Transaminitis - RUQ US with steatosis but no masses - chronic hep battery negative COPD exacerbation (resolved) with large emphesematous component No wheezing, less overall air movement today. - Extending prednisone therapy per taper by pulm - breathing treatments as above - needs outpatient pulm follow-up Acute hypoxic resp failure - resolved At [facility] requiring o2. 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 No e/o SSTI currently - rivaroxaban, ASA on hold for hemoptysis. Discussed with pulm today- if hemoptysis remains low volume today will resume anticoagulation on Monday. Can consider doing so with heparin gtt to ensure he tolerates. CAD x7 stents HDL - ASA as above - cont atorvastatin HTN - well controlled - cont losartan, metop BPH - cont flomax GERD - cont PPI Problem list reviewed at admission. Quality Self-Check Complexity. . Obesity, class I Body mass index is 30.81 kg/m . - Follow with PCP for dietary and lifestyle modifications. Wound Documentation Wound Vascular Ulcer Arterial 05/09/25940 Anterior;Right Foot (Active) Date First Assessed/Time First Assessed: 05/09/25940 Primary Wound Type: Vascular Ulcer Secondary Wound Type - Vascular Ulcer: Arterial Present on Original Admission: Yes Wound Location Orientation: Anterior;Right Location: Foot Any conditions listed below are present on admission unless otherwise specified. . DVT prophylaxis with SCD's given bleeding Anticipated Disposition: home Code status is Full Code Interval History / Subjective Sitting up eating breakfast. Says things are about the same. Coughs up some mucous that is blood tinged while I am in the room. Has a plastic cup that is maybe a fifth [address] full of sputum. Objective Temp: [97.4 F (36.3 C)-97.9 F (36.6 C)] 97.7 F (36.5 C) Pulse (Heart Rate): [74-105] 103 Resp Rate: [14-18] 14 BP: (139-159)/(68-90) 140/72 O2 Sat (%): [92 %-94 %] 93 % Physical Exam Gen: A, A, NAD ENT: MMM Resp: CTA bilat, more air movement b/l today, normal effort Cardio: RRR, normal S1, S2, No OSCAR GI: S/NT/ND, NABS Psych: Ox3, appropriate affect and cognition Skin: Right great toe ulceration with exposed bone Data Review WBC/Hgb/Hct/Plts: 6.50/11.1/33.7/211 (05/11 353) Na/K+/Phos/Mg/Ca: 138/3.6/--/--/-- (05/11 353) Bun/Creat/Cl/CO2/Glucose: 20/0.89/106/22/-- (05/11 353) Lab Results Component Value Date ALT 99 (H) 05/11/2025 AST 34 05/11/2025 ALKPHOS 72 05/11/2025 BILITOTAL 0.6 05/11/2025 BILIDIRECT 0.2 05/11/2025 Signed, Rafaela Garcia MD 05/11/25 0828 Respiratory Interventions RT Intervention Acuity Assessment RT Acuity Assessment Tool RT Protocol Assessment 24 hour reassessment mMRC Dyspnea Score 0 RT Modified Robert Score 0 Combined Dyspnea Score 0 RT Acuity Level 4 Current Orders: Duo Q6. TXA Q12 Tx Indication: Per Respiratory Therapy Directed Asthma and COPD Inhaler Protocol: acuity level 4 Respiratory Plan of Care: COPD exacerbation, continue DUo Q6 for 24 hours and reassess. The patient's respiratory plan of care was updated by Yris Martinez RCP 05/11/2025 12:48 PM Images from the original note were not included. Pulmonary/Critical Care Medicine Consult Progress Note Length of Stay: 1 days Interval History: Cup bedside with dark red sputum, patient states he believes that his coughing is improved. Objective Findings: Physical Exam: Temp: [97.4 F (36.3 C)-99.2 F (37.3 C)] 97.7 F (36.5 C) Pulse (Heart Rate): [74-105] 83 Resp Rate: [16-18] 18 BP: (139-159)/(67-90) 159/90 O2 Sat (%): [92 %-94 %] 92 % GEN: well-appearing, NAD, normal weight. HEENT: normal conjunctivae. RESP: CTAB w/ good air movement, no w/r/r, breathing comfortably on RA. Some dried blood in cup bedside CV: RRR, normal S1 and S2, no r/g/m, no LE edema, no JVD. MSK: no deformity. SKIN: warm, dry. NEURO: alert, responds appropriately to questions, no gross motor deficit. Lab Data: WBC/Hgb/Hct/Plts: 6.50/11.1/33.7/211 (05/11 353) Na/K+/Phos/Mg/Ca: 138/3.6/--/--/-- (05/11 353) Bun/Creat/Cl/CO2/Glucose: 20/0.89/106/22/-- (05/11 353) I have personally reviewed and interpreted the following imaging studies with the pulmonary/critical care attending. Official reports included below: CT 05/06 Impression & Recommendations: Tristin Powell Sr. is a 85 y.o. male with CAD s/p stent x7, PAD s/p SFA-peroneal bypass, L foot amputation, chronic R foot ulcer, HTN, HLD, BPH who presented on 05/09/2025 from OSH for hemoptysis. Impression: Abnormal Chest CT, reported cavitary lesion Hemoptysis COPD Exacerbation Hemoptysis likely secondary to intrapulmonary pathology at OSH. Appears to be large component of air trapping. Also previously on ASA and xarelto outpatient likely oozing from erosion of lung parenchyma. Was receiving TXA nebs outpatient but continues to have hemoptysis at this time with a productive cough. Recommendations: Continue to quantify hemoptysis with bedside cup Prednisone 40mg for 4 days, 30mg for 4 days, 20mg for 4 days, then 10mg for 4 days Please discontinue TXA nebs OK to restart AC tomorrow 05/12 Daily Hg trend If patient starts to have large volume hemoptysis, please obtain STAT CTA chest with IR consult for embolization eval Staff: Connie Thank you for this consult. All recommendations are preliminary until cosigned by the attending. Obdulio Chapa MD PGY-4, Pulmonary and Critical Care Medicine Cosigned by BOLA Caceres [facility] at 05/11/2025 11:33 AM EDT Associated attestation - Carmel Rosales MB [facility] - 05/11/2025 11:33 AM EDT Pulmonary Attending Attestation: I have personally seen and evaluated Mr. Powell and reviewed Dr. Chapa's note. I agree with findings and plan. I have personally completed the following: reviewed the lab and culture data, rounded with the consult team, seen and examined the patient and reviewed the available imaging data. Additional details as outlined by the consult team. Thank you for the opportunity to participate in Mr. Powell's care. Carmel Rosales MD, [facility] [place], [facility] [employer] Supervisor [employer] [employer] [facility] Pulmonary and Critical Care Pager #[phone] Attending Physician 05/11/2025 11:33 AM Department of Pharmacy Pharmacokinetics Progress Note Patient: Tristin Powell Room/Bed: [facility] Assessment and Plan: Based upon drug level assessment and interpretation (steady state), I have changed the vancomycin dose and/or dosing interval to 1500 mg IV every 12 hours to start at 1900 on 05/10/25. A pharmacist will continue to follow and order drug levels and adjust dosing as clinically appropriate. I have modified the orders in IS to reflect the above plan. Vancomycin regimen at time of level: Vancomycin 1250 mg IV every 12 hours Last Dose Administered: Dose: Date: Time: 1250 mg 05/10/25 0523 Levels: 13.9 mcg/mL drawn at 1740 on 05/10. Level was a trough. Most Recent Labs: WBC Count Date Value Ref Range Status 05/09/2025 6.41 3.73 - 10.10 K/uL Final BUN Date Value Ref Range Status 05/09/2025 25 7 - 25 mg/dL Final Creatinine Date Value Ref Range Status 05/10/2025 0.85 0.70 - 1.30 mg/dL Final I/O last 3 completed shifts: In: 875.8 [P.O.:480; IV Piggyback:395.8] Out: 1650 [Urine:1650] Estimated Creatinine Clearance: 82 mL/min (by C-G formula based on SCr of 0.85 mg/dL). Ongoing Vancomycin Monitoring: The following trough goal is recommended for ongoing therapy based on the suspected/confirmed source of infection and today s calculations: Goal trough range: 15-20 mcg/mL If therapy is to be continued after discharge, please contact pharmacy for appropriate dosing. Please feel free to contact me with any further questions. Name: Monica Martin RPH Phone: [phone] Date/Time: 05/10/2025 6:35 PM Hospital Medicine Progress Note Patient: Tristin Powell , : 1940, Impression / Plan Acute bronchitis 2/2 rhinovirus CAP - strep pneumo and pseudomonas Lung abscess vs infected bullae- review of imaging seems to favor bullae Hemoptysis, non massive CT chest on 05/04 showing bilateral patchy infiltrates, 10 cm air-fluid collection LLL c/f infected bullae vs abscess. Images pushed to out system - Appreciate pulm recs. Started a prednisone taper and resumed TXA nebs BID. Hemoptysis appears to be relatively low volume at this time. - Breathing treatments q6h - Cont. Codeine/robitussin, has cough drops at bedside - appreciate ID input. Continue current antibiotics - hemoglobin stable currently. - if he starts having massive hemoptysis needs stat CTA and IR for embolization History of left upper lobe nodule - will see if this is still present on latest CT chest. Given age, c/f underlying malignancy Transaminitis - RUQ US with steatosis but no masses - chronic hep battery negative COPD exacerbation (resolved) No wheezing, less overall air movement today. - Extending prednisone therapy per taper by pulm - breathing treatments as above Acute hypoxic resp failure - resolved At [facility] [place] requiring o2. 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 No e/o SSTI currently - rivaroxaban, ASA on hold for hemoptysis. Discussed with pulm today- if hemoptysis remains low volume over weekend would resume anticoagulation on Monday. Can consider doing so with heparin gtt to ensure he tolerates. CAD x7 stents HDL - ASA as above - cont atorvastatin HTN - well controlled - cont losartan, metop BPH - cont flomax GERD - cont PPI Problem list reviewed at admission. Quality Self-Check Complexity. . Obesity, class I Body mass index is 30.81 kg/m . - Follow with PCP for dietary and lifestyle modifications. Wound Documentation Wound Vascular Ulcer Arterial 05/09/25940 Anterior;Right Foot (Active) Date First Assessed/Time First Assessed: 05/09/25940 Primary Wound Type: Vascular Ulcer Secondary Wound Type - Vascular Ulcer: Arterial Present on Original Admission: Yes Wound Location Orientation: Anterior;Right Location: Foot Any conditions listed below are present on admission unless otherwise specified. . DVT prophylaxis with SCD's given bleeding Anticipated Disposition: home Code status is Full Code Interval History / Subjective Feeling ok. Says he's had bleeding issues for over 2 weeks now. Feels that what is in the tube is a lot. Stays it only seems to occur when he really gets to coughing a lot. Does not feel like what he's using for cough is sufficient. 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 Says he has COPD. Denies any chest pain. Has a history of DAYANNA lung nodule. Objective Temp: [97.9 F (36.6 C)-99.2 F (37.3 C)] 99.2 F (37.3 C) Pulse (Heart Rate): [84-96] 95 Resp Rate: [15-28] 16 BP: (140-195)/(65-85) 150/67 O2 Sat (%): [92 %-96 %] 92 % Physical Exam Gen: A, A, NAD, sitting straight up in bed ENT: MMM Resp: CTA bilat, diminished throughout, not taking deep breaths Cardio: RRR, normal S1, S2, No OSCAR GI: S/NT/ND, NABS Psych: Ox3, appropriate affect and cognition Skin: Right great toe ulceration with exposed bone Data Review Bun/Creat/Cl/CO2/Glucose: --/0.85/--/--/-- (05/10 28) Lab Results Component Value Date ALT 180 (H) 05/09/2025 AST 125 (H) 05/09/2025 ALKPHOS 79 05/09/2025 BILITOTAL 0.7 05/09/2025 BILIDIRECT 0.1 05/09/2025 Signed, Rafaela Garcia MD Images from the original note were not included. Pulmonary/Critical Care Medicine Consult Progress Note Length of Stay: 0 days Interval History: Patient states that he feels that his chest has been tightening since he recived new IV abx. Continues to have some scant hemoptysis. Objective Findings: Physical Exam: Temp: [97.8 F (36.6 C)-98.6 F (37 C)] 97.9 F (36.6 C) Pulse (Heart Rate): [62-94] 85 Resp Rate: [15-28] 15 BP: (140-185)/(65-76) 166/74 O2 Sat (%): [92 %-96 %] 94 % GEN: well-appearing, NAD, normal weight. HEENT: normal conjunctivae. RESP: CTAB w/ good air movement, no w/r/r, breathing comfortably on RA. Some dried blood in yonker suction CV: RRR, normal S1 and S2, no r/g/m, no LE edema, no JVD. MSK: no deformity. SKIN: warm, dry. NEURO: alert, responds appropriately to questions, no gross motor deficit. Lab Data: Bun/Creat/Cl/CO2/Glucose: --/0.85/--/--/-- (05/10 28) I have personally reviewed and interpreted the following imaging studies with the pulmonary/critical care attending. Official reports included below: CT 05/06 Impression & Recommendations: Tristin Powell Sr. is a 85 y.o. male with CAD s/p stent x7, PAD s/p SFA-peroneal bypass, L foot amputation, chronic R foot ulcer, HTN, HLD, BPH who presented on 05/09/2025 from OSH for hemoptysis. Impression: Abnormal Chest CT, reported cavitary lesion Hemoptysis COPD Exacerbation Hemoptysis likely secondary to intrapulmonary pathology at OSH. Would benefit from obtaining the images and evaluation of abscess or cavitary lesion. Also previously on ASA and xarelto outpatient likely oozing from erosion of lung parenchyma. Was receiving TXA nebs outpatient but continues to have hemoptysis at this time with a productive cough. Recommendations: Please place specimen cup bedside to quantify hemoptysis Prednisone 40mg for 4 days, 30mg for 4 days, 20mg for 4 days, then 10mg for 4 days TXA nebs BID Daily Hg trend If patient starts to have large volume hemoptysis, please obtain STAT CTA chest with IR consult for embolization eval Please hold Staff: Connie Thank you for this consult. All recommendations are preliminary until cosigned by the attending. Obdulio Chapa MD PGY-4, Pulmonary and Critical Care Medicine Cosigned by BOLA Caceres [facility] at 05/10/2025 1:05 PM EDT Associated attestation - Carmel Rosales MB [facility] - 05/10/2025 1:05 PM EDT Pulmonary Attending Attestation: I have personally seen and evaluated Mr. Powell and reviewed Dr. Chapa's note. I agree with findings and plan. I have personally completed the following: reviewed the lab and culture data, rounded with the consult team, seen and examined the patient and reviewed the available imaging data. Additional details as outlined by the consult team. Thank you for the opportunity to participate in Mr. Powell's care. Carmel Rosales MD, [facility] [place], [facility] Chimney Supervisor [facility] Clinical Medicine Pulmonary and Critical Care Pager #[phone] Attending Physician 05/10/2025 1:05 PM Department of Pharmacy Admission Medication Reconciliation Note Patient: Tristin Powell Room/Bed: [facility]/A I have reviewed the patient's home medication list with the following sources Patient recall with prompting, Patient recall without prompting, Dispense Report, and Pharmacy (Name [facility] ). I have also reviewed this list with the pharmacist. I am recommending the following changes to the home medication list. These recommendations are considered preliminary until attestation of this note by a pharmacist. Added to Home Medications: Albuterol 108 Mcg/Act Amoxicillin-Clavulanate 500/125 Mg Azelastine 0.1% Solution nasal spray Fluticasone 50 Mcg/Act Furosemide 20 Mg Sulfamethoxazole-Trimethoprim 400/80 Mg Polyethylene Glycol 17 g Pack Deleted from Home Medications: Acetaminophen 325 Mg - Patient reported not taking this Medication. Polyethylene Glycol PO Pack - Reentry Therapeutic Multivitamin-minerals tablet - Patient reported not taking this Medication. Edits to Home Medications: Azelastine 0.1% - Patient reported taking this Medication differently than prescribed, Take 1 spray nasally daily as needed. Fluticasone 50 Mcg/Act - Patient reported taking this Medication differently than prescribed, Take 1 spray nasally daily as needed. Furosemide 20 Mg - Patient reported taking this Medication differently, Take 1 tablet daily as needed. Losartan 50 Mg - Updated instructions to as Prescribed, Take 1 tablet daily; Previously stated, Take 0.5 Tablet daily. Patient reported taking differently, Take 1 tablet daily as Needed. Omeprazole 20 Mg - Patient reported taking this Medication differently, Take 1 tablet daily as needed. Rivaroxaban 2.5 Mg - Updated Dosage/Strength to as Prescribed, Rivaroxaban 2.5 Mg; Previously stated, Rivaroxaban 20 Mg Updated Instructions, Take 2.5 Mg 2 times daily; Previously stated, Take 2.5 Mg 2 times daily start in 22 days after the 15 Mg dose is completed. Tamsulosin 0.4 Mg - Patient reported taking this Medication differently, Take 1 tablet twice daily. Zolpidem 10 Mg - Updated Dosage/Strength to as Prescribed, Zolpidem 10 Mg; Previously stated, Zolpidem 5 Mg. Updated Instructions to as Prescribed, Take 10 Mg at bedtime as needed; Previously stated, Take 5 Mg at bedtime as needed. Other Comments: The patient's allergies have been reviewed with Patient. Albuterol 0.083% inhalation solution - Patient reported taking this Medication; External Pharmacy reported no fill history of this Medication. Amoxicillin-Clavulanate 500/125 Mg - Patient reported that he stopped this Medication 12 days ago due to not being able to urinate; Last dispensed: 04/16/2025 #60 for 30 Days Losartan 50 Mg - Patient reported only taking this Medication when he feels that his blood pressure is too high. Sulfamethoxazole-Trimethoprim 400/80 Mg - Patient reported that he stopped this Medication 12 days ago due to not being able to urinate; Last dispensed: 04/16/2025 #60 for 30 Days Please feel free to contact me with any further questions. 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 Albuterol 108 (90 Base) MCG/ACT Aero Soln inhaler Sig: Inhale 1 puff every 4 hours as needed for Shortness of Breath. Amoxicillin-clavulanate 500-125 MG tablet Sig: Take 1 tablet by mouth every 12 hours. Patient not taking: Reported on 05/09/2025 Note (05/09/2025): Patient reported that he stopped this Medication 12 days ago due to not being able to urinate Metoprolol 50 MG tab regular release Sig: Take 1 tablet by mouth 2 times daily. Polyethylene glycol 17 g Pack packet Sig: Take 1 packet by mouth daily. Sulfamethoxazole-trimethoprim 400-80 MG per tablet Sig: Take 1 tablet by mouth 2 times daily. Note (05/09/2025): Patient reported that he stopped this Medication 12 days ago due to not being able to urinate Tamsulosin HCl 0.4 MG capsule Sig: Take 1 capsule by mouth 2 times daily. albuterol (2.5 MG/3ML) 0.083% inhalation solution Sig: albuterol sulfate 2.5 mg/3 mL (0.083 %) solution for nebulization Note (05/09/2025): Patient reported taking this Medication; External Pharmacy reported no fill history of this Medication. atorvastatin 80 MG tablet Sig: Take 1 tablet by mouth daily. azelastine 0.1 % Solution nasal spray Si spray by Nasal route 2 times daily. Use in each nostril as directed Patient taking differently: 1 spray by Nasal route daily as needed. Use in each nostril as directed collagenase (Santyl) 250 UNIT/GM Ointment Sig: Apply 1 Application topically daily. To foot wound fluticasone 50 MCG/ACT Suspension nasal spray Si spray by Nasal route daily. Patient taking differently: 1 spray by Nasal route daily as needed. furOSEmide 20 MG tablet Sig: Take 1 tablet by mouth daily. Patient taking differently: Take 1 tablet by mouth daily as needed. losartan 50 MG tablet Sig: Take 1 tablet by mouth daily. nitroGLYCERIN 0.4 MG tablet SL Sig: Place 1 tablet under tongue every 5 minutes as needed for Chest pain. max = 3 doses. If CP persists after 1st dose, call 911 omeprazole [address] capsule Sig: Take 1 capsule by mouth daily. Patient taking differently: Take 1 capsule by mouth daily as needed. oxyCODONE-acetaminophen 5-325 MG per tablet Sig: Take 1 tablet by mouth every 6 hours as needed for Severe Pain. rivaroxaban 2.5 MG tablet Sig: Take 1 tablet by mouth 2 times daily. zolpidem 10 MG tablet Sig: Take 1 tablet by mouth At bedtime as needed for Sleep. Facility-Administered Medications: None I have reviewed the home medication list with the Portrait Photographer. The home medication list status is: complete and home med list marked as reviewed . All changes to the home medication list have been updated in [facility]. Please feel free to contact me with any further questions. Name: Sirena Carpenter [facility] Phone #: [phone] Date/Time: 05/09/2025 1:44 PM Hospital Medicine Progress Note Patient: Tristin Powell Sr., : 1940, Impression / Plan Acute bronchitis 2/2 rhinovirus CAP - strep pneumo and pseudomonas Lung abscess vs infected bullae Hemoptysis, non massive CT chest on 05/04 showing bilateral patchy infiltrates, 10 cm air-fluid collection LLL c/f infected bullae vs abscess. - seems to be improving. Will make sure imaging is over here for review. Unclear exact start date of antibiotics. Will have ID assist - Consult pulmonary for their take on hemoptysis - Breathing treatments q6h - Add codeine to robitussin - hold on further TXA unless recommended by pulm. He needs to resume Xarelto/aspirin vs. Heparin gtt KAJAL due to his recent revascularization - hemoglobin stable currently. History of left upper lobe nodule - will see if this is still present on latest CT chest. Given age, c/f underlying malignancy Transaminitis - RUQ US ordered - chronic hep battery ordered COPD exacerbation (resolved) No wheezing and good air movement on exam. Has completed prolonged course of prednisone, close to 14 days. - breathing treatments as above Acute hypoxic resp failure - resolved At [facility] [place] requiring o2. 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 Quality Self-Check Complexity. . Obesity, class I Body mass index is 30.81 kg/m . - Follow with PCP for dietary and lifestyle modifications. Wound Documentation Wound Vascular Ulcer Arterial 05/09/25 0941 Anterior;Right Foot (Active) Date First Assessed/Time First Assessed: 05/09/25 0941 Primary Wound Type: Vascular Ulcer Secondary Wound Type - Vascular Ulcer: Arterial Present on Original Admission: Yes Wound Location Orientation: Anterior;Right Location: Foot Any conditions listed below are present on admission unless otherwise specified. . DVT prophylaxis with SCD's given bleeding Anticipated Disposition: home Code status is Full Code Interval History / Subjective Feeling ok. Says he's had bleeding issues for over 2 weeks now. Feels that what is in the tube is a lot. Stays it only seems to occur when he really gets to coughing a lot. Does not feel like what he's using for cough is sufficient. 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 Says he has COPD. Denies any chest pain. Has a history of DAYANNA lung nodule. Objective Temp: [97.8 F (36.6 C)-98.3 F (36.8 C)] 97.8 F (36.6 C) Pulse (Heart Rate): [62-98] 62 Resp Rate: [16-20] 16 BP: (152-186)/(69-86) 152/69 O2 Sat (%): [94 %-99 %] 94 % Weight: [108.9 kg (240 lb)] 108.9 kg (240 lb) Physical Exam Gen: A, A, NAD, sitting straight up in bed ENT: MMM Resp: CTA bilat, diminished throughout, not taking deep breaths Cardio: RRR, normal S1, S2, No OSCAR GI: S/NT/ND, NABS Psych: Ox3, appropriate affect and cognition Skin: Right great toe ulceration with exposed bone Data Review WBC/Hgb/Hct/Plts: 6.41/10.9/33.0/232 (05/09 337) Na/K+/Phos/Mg/Ca: 139/4.2/3.2/2.0/9.1 (05/09 337) Bun/Creat/Cl/CO2/Glucose: 25/0.92/107/22/100 (05/09 337) Ptt/Pt/Inr: 23.6/14.4/1.1 (05/09 337) Lab Results Component Value Date ALT 180 (H) 05/09/2025 AST 125 (H) 05/09/2025 ALKPHOS 79 05/09/2025 BILITOTAL 0.7 05/09/2025 BILIDIRECT 0.1 05/09/2025 Signed, Rafaela Garcia MD Discharge Planning Assessment Is the patient able to participate in the assessment?: Yes Care Management Plan Anticipate patient will discharge home when medically ready. Patient denies needs/concerns from CM at this time. Patient reports that he had HHC a few weeks ago but no HHC services currently at home. Initial Discharge Planning Expected Discharge Disposition: Home Transportation Available for Discharge: Family or Friend Patient Assessment Completed: Initial Legal Next of Kin Does the patient have a Guardian?: No Spouse: No Adult Child(jaz), List All Adult Children: Yes Name and Contact information: Michael Marshall ([facility]) [phone] Would you like to add additional adult children?: Yes Name and Contact information: Amina Barr Name and Contact information: Richard Powell Advanced Care Planning Has the patient completed Advance Directives?: Completed, Available in Medical Record Reviewed for accuracy with patient?: Yes Advanced Directives on File: HealthCare Power of Real Estate Analyst Medication Management Does the patient have prescription insurance coverage? : Yes Is the patient on Anticoagulation? : Yes- [facility] [id number] [place] [address] - [address] [facility] [address] [id number] Living Environment and Support System Is the patient from a facility or care home?: No Living Environment: House Patient Caregiving Responsibilities: Self Patient-identified caregiver/support network: Family Who does the patient identify as a teachable caregiver(s)?: Sibling(s), Child(jaz) - Independent Services Does the patient use a home health or hospice agency?: No Current with dialysis?: No Does the patient use any community programs or services?: No Does patient use DME? : none (patient reports he has all DME (walker, canes, wheelchair) if needed) Does the patient use oxygen?: No Anticipated Changes Related to Illness/Injury? : No Initial ADLs Prior to Arrival What is the patient's reported baseline physical functioning prior to this acute illness?: independent What is the patient's reported baseline cognitive functioning prior to this acute illness?: independent Is the patient's baseline functioning changed by this acute illness? : No Concerns with patient being able to care for themselves at home? : Concepción Grey (Teresa), BEFORE SCHOOL BABYSITTER, CCM Clinical Allergist/Immunologist Physician \ Acute Occupational Therapy Evaluation Prior Gross Functional Mobility: independent Current AM-PAC score(s): CURRENT AM-PAC Mobility Raw Score: 18 CURRENT AM-PAC Activity Raw Score: 19 Based on the above AM-PAC score(s) and OT clinical judgment, discharge destination recommendation is: Home with Home Health Barriers to discharge home: Patient needs assistance with functional mobility, Patient needs assistance with IADLs (see note below), Patient needs assistance with ADLs Mobility equipment available at home: front-wheeled walker, rollator, straight cane ADL equipment available at home: elevated toilet seat, shower chair Equipment recommendations for discharge: to be determined Current therapy frequency recommendation(s) in acute: 4 times a week Activity Recommendations for outside of rehab session: x1 assist to bathroom/chair with gait belt Precautions and Weightbearing Status: OT Existing Precautions/Restrictions: fall Lines/Tubes/Drains (Rehab Status): No critical lines at this time Patient Safety Communication Prior to Visit: Nursing Current brace/orthoses: Post-op shoe Current brace/orthoses wear schedule: When out of bed (Provided by PT for safety of R great toe during ambulation) Subjective: Pt received supine in bed with HOB elevated. Pt has been coughing up bloody secretions, and reports worsening cough when he moves. Pain: General Pain Documentation (Adult, OB, Peds) Presence of Pain: reports pain/discomfort Pain Location: foot, left DVPRS (Defense and Veterans Pain Rating Scale) DVPRS: Rest: 7- severe pain DVPRS: Activity: 7- severe pain Home Setting Residence: House Lives With: sibling(s) (brother) Patient receives help from : (brother able to assist as needed) Patient reported support for discharge plannin hour supervision First floor setup: bedroom, tub shower, grab bars Number of stairs to enter home: 1 (also has a ramp if needed) Number of stairs in home: 0 Stair Railings at Home: entry - no rail Mobility Equipment Available: front-wheeled walker, rollator, straight cane ADL Equipment Available: elevated toilet seat, shower chair Home Environment Details: Single story home Previous Level of Function Gross Functional Mobility: independent Assistive Device: none used Prior level ADL Overview: Independent with all ADLs Dominant Hand: Right Bed Mobility: independent Transfers: independent Stairs: independent Ambulation: independent with all needs Prior Level of Function Details: Independent baseline. 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 Likes to go fishing. Denies recent falls. IADL History IADLs: independent Primary Language: Malian Objective/Observation: Vitals/Vitals Responses to Treatment: Vital signs stable while monitored during session. No adverse response or symptoms. O2 Device: room air Vision Screen Currently wearing corrective lenses: No Visual Impairments Observed?: No Speech Speech: no gross deficits noted Successful Methods (Communication Strategies): verbal speech Hearing Hearing: no gross deficits noted Cognition Overall Cognitive Status: (at risk) Arousal/Alertness: Appropriate responses to stimuli Orientation Level: Oriented X4 Following Commands: Follows one step commands with repetition, Follows one step commands with increased time Safety Judgment: Decreased awareness of need for assistance, Decreased awareness of need for safety Awareness of Errors: Assistance required to identify errors made, Assistance required to correct errors made Deficits: Decreased awareness of deficits Attention Span: Attends with cues to redirect Memory: Appears intact Problem Solving: Assistance required to identify errors made, Assistance required to generate solutions Cognition Comments: Impulsive throughout. Requires cues for safety and redirection to task. Decreased insight into deficits and assistance needed. ADLs: ADL Assessment: Assessed All ADLs, LE Dressing Deficit ADL Anticipated Performance (ADLs not directly observed this session): Eating, Bathing, Grooming, UE Dressing, Toileting ADL Comments: Functional levels based on clinical judgement and performance in other areas Eating Assistance: Independent Grooming Assistance: Contact guard assist Grooming Location: standing at sink Grooming Intervention/Details: Pt declined completing hygiene/grooming tasks on eval. Requested setup of materials at bedside to complete oral hygiene later on during the day. Provided with toothbrush, toothpaste, cup, basin, and comb. Bathing Assistance: Stand by Bathing Location: seated on shower chair UE Dressing Assistance: Stand by UE Dressing Location: edge of bed LE Dressing Assistance: Moderate LE Dressing Location: edge of bed LE Dressing Deficit: Don/doff R shoe, Activity tolerance, Increased time to complete LE Dressing Skilled Rationale (Verbal/Tactile/Visual/Demonstra tion): Setup, Supervision, Technique of activity LE Dressing Intervention/Details: Pt dons soft boot (with non-slip motor runner) on L foot for mobility despite education to utilize more stable footwear. Education provided on how to don R post-op shoe for great toe protection. Pt required assistance with donning new shoe. Toilet Assistance: Stand by Toileting Location: toilet Extremity Assessments: RUE Assessment RUE Assessment: Within Functional Limits Right UE Assessment Details: functionally assessed LUE Assessment LUE Assessment: Within Functional Limits Left UE Assessment Details: functionally assessed Balance: Sitting Balance Static Sitting-Level of Assistance: Supervision Dynamic Sitting-Level of Assistance: Standby Skilled Rationale: Verbal cues, Positioning Sitting Balance Skilled Intervention/Details: No overt LOB while seated EOB Standing Balance Static Standing-Level of Assistance: Contact guard Dynamic Standing-Level of Assistance: Contact guard Standing-Balance Support: Gait belt, No upper extremity support Skilled Rationale: Verbal cues, Positioning, Cues for increased safety, Full extension to upright positioning/posture Standing Balance Skilled Intervention/Details: Balance challenged at EOB with cues for line management/safety throughout. Pt is impulsive thorughout and requires cues for general safety. No overt LOB but demonstrates wide base of support and flexed posture. Neuro: Proprioception Proprioception: intact Gross Coordination Gross Coordination: bilat UE intact Fine Motor Coordination Additional Documentation: Yes Fine Motor Coordination Left Hand, Manipulation of Objects: normal performance Right Hand, Manipulation of Objects: normal performance Mobility Assessment: Supine to Sit Mobility Wells Level: Supine->Sit: contact guard assist Bed Features/Set-up: Supine->Sit: Head of bed elevated, Use of bed rail Skilled Rationale: Positioning, Verbal cues, Initiation and execution of task Skilled Intervention/Details: Supine->Sit: x1 to EOB with increased time Sit to Supine Mobility Wells Level: Sit->Supine: stand-by assist Bed Features/Set-up: Sit->Supine: Head of bed elevated Skilled Rationale: Verbal cues, Initiation and execution of task Skilled Intervention/Details: Sit->Supine: x1 from EOB Transfer Assessment: Sit to Stand Transfer Wells Level: Sit->Stand: contact guard assist Assistive Device: Sit->Stand: gait belt Skilled Rationale: Verbal cues, Initiation and execution of task, Cues for increased safety Skilled Intervention/Details: Sit->Stand: x1 from EOB impulsively and requires cues for line management/safety Stand to Sit Transfer Wells Level: Stand->Sit: contact guard assist Assistive Device: Stand->Sit: gait belt Skilled Rationale: Verbal cues, Controlled descent for sitting, Technique of activity, Positioning Skilled Intervention/Details: Stand->Sit: x1 to EOB with cues for positioning Functional Mobility: Functional Mobility Wells Level: Functional Mobility/Gait: contact guard assist Assistive Device: Functional Mobility/Gait: gait belt Functional Mobility Distance: Distance needed to access restroom Functional Mobility Deficits: Activity tolerance, Balance, Generalized weakness, Pain Functional Mobility Skilled Rationale: Cues for increased safety, Facilitate postural control, Verbal cues Skilled Intervention/Details - Functional Mobility/Gait: Facilitated short distance functional mobility in the room without UE support. Pt has no LOB but demonstrates wide base of support, slower pace, and postural sway. He requires frequent cues for safety and line management. Pt would benefit from use of assistive device for increased stability. Self-directed distance due to not wanting to exacerbate cough. Wheelchair Assessment Patient currently uses wheelchair?: No Outcome Score(s): CURRENT [facility] Daily Activity Inpatient Short Form Putting on/Taking Off Lower Body Clothin - A Little Assistance Bathin - A Little Assistance Toiletin - A Little Assistance Putting on/Taking Off Upper Body Clothin - A Little Assistance Groomin - A Little Assistance Eatin - No Assistance CURRENT [facility] Activity Raw Score: 19 CURRENT [facility] Activity Functional Limitation/Modifier: 42.80% Currently Impaired in Daily Activity - CK CURRENT [facility] Basic Mobility Inpatient Short Form Turning over in bed: 3 - A Little Assistance Moving from lying on back to sittin - A Little Assistance Moving to and from bed to chair: 3 - A Little Assistance Sitting/standing from chair: 3 - A Little Assistance Walk in hospital room: 3 - A Little Assistance Climbing 3-5 steps with a railin - A Little Assistance CURRENT [facility] Mobility Raw Score: 18 CURRENT [facility] Mobility Functional Limitation: 46.58% Impaired in Basic Mobility Assessment & Plan: Patient was admitted for hemoptysis and seen for therapy evaluation related to ADL assessment and discharge recommendations. Exam findings include impairments in: balance, attention, endurance, pain with movement, pain, strength, transfers (safety). These impairments contribute to occupational performance limitations including bathing, dressing, toileting, functional mobility, home management tasks, grooming, ADL transfers. The following factors impact the plan of care: Past Medical History[1] Past Surgical History[2] Patient will benefit from skilled occupational therapy to address these impairments, occupational performance limitations, and participation restrictions. Patient's rehab potential is: good. Planned Therapy Interventions (OT Eval): ADL retraining, balance training, functional activity tolerance, neuromuscular re-education, ROM (range of motion), strengthening, transfer training Patient Instruction/Education this session: Learners: Patient Education provided: Activity outside of therapy, Plan of care, Safety, Role of this discipline Teaching method: Verbal Education/Instruction Learner response: Applies knowledge Learning preferences: Auditory, Visual Learning considerations: No barriers/ready to learn Plan for next session: standing ADLs, dynamic balance Acute OT Goals Plan of Care by Deena Jacobs OT at 05/09/2025 8:37 AM Version 1 of 1 Problem: OT - ADLs Goal: Lower Body Dressing - Patient will complete lower body dressing tasks with independence using adaptive equipment/compensatory strategies as needed for improved ability to complete self-care activities. Outcome: Ongoing Goal: Grooming - Patient will complete grooming in standing with independence for improved ability to safely complete ADLs. Outcome: Ongoing Goal: Toileting - Patient will complete toileting task with independence and adaptive equipment as needed for improved ability to safely complete self-care activities. Outcome: Ongoing Problem: OT - Transfers Goal: Transfers Toilet/ Bedside Commode - Patient will transfer to/from toilet/bedside commode with independence for improved ability to safely complete ADLs. Outcome: Ongoing Problem: OT - Balance Goal: Balance - Standing - Patient will perform 10 minutes of functional task in standing with modified independence and good balance to promote safety and improved balance required for self-care activities. Outcome: Ongoing Problem: OT - Endurance Goal: Endurance Functional Mobility - Patient will complete distance needed for common household mobility and distance needed for limited community mobility with modified independence using LRAD for improved tolerance to safely complete I/ADL's Outcome: Ongoing Problem: OT - Cognition Goal: Safety - Patient will demonstrate good safety awareness during ADL routine with minimal cues for accuracy. Outcome: Ongoing OT treatment consisted of the following to work and progress towards the above goal(s): OT Evaluation and Treatment Time OT Evaluation (Moderate) Time Entry: 23 Evaluating Therapist: Deena Jacobs, OT Additional Details: OT Co-Eval/Treatment Information Co-evaluation/co-treatment performed?: Yes, simultaneous billable skilled care was necessary due to medical complexity and functional deficits Other discipline: PT Rationale for need to co-eval/treat: postural control (safety with initial eval) OT Evaluation Complexity Occupational Profile and Client History: Moderate - expanded history Assessment of Occupational Performance: Moderate (3-5 performance deficits) Clinical Decision/Performance Deficits: Moderate (detailed assessments w/several treatment options) Time In: 0837 Time Out: 0900 Total Visit Time: 23 minutes Total Treatment Time (skilled, billable minutes): 23 minutes PPE used during patient interaction: gloves Patient location at end of session: bed with head of bed elevated, lines intact, RN aware Alarms on at end of session: none altered, RN aware Needs in reach. Upon discontinuation of Acute Care Occupational Therapy Services or patient discharge from the hospital this note represents the current Occupational Therapy Discharge Summary. [1] Past Medical History: Diagnosis Date Arthritis CAD (coronary artery disease) 3 stents placed COPD (chronic obstructive pulmonary disease) Essential hypertension, benign GERD (gastroesophageal reflux disease) Hyperlipidemia Prostate cancer Vascular disease [2] Past Surgical History: Procedure Laterality Date ARTHROPLASTY [...] ankle CORONARY ARTERY BYPASS GRAFT 3 vessel RADIOGRAPHIC/SURGICAL IMPLANT INDEX jul 2010-november 2010 radioactive seeds implanted prostate Acute Physical Therapy Evaluation Prior Gross Functional Mobility: independent Current AM-PAC score(s): CURRENT AM-PAC Mobility Raw Score: 18 Based on the above AM-PAC score(s) and PT clinical judgment, patient is a good candidate for discharge to Home with Home Health Barriers to discharge home: Patient needs assistance with functional mobility Mobility equipment available at home: front-wheeled walker, rollator, straight cane ADL equipment available at home: elevated toilet seat, shower chair Equipment needed for discharge: none Current therapy frequency recommendation in acute: PT Therapy Frequency: 5 times a week Precautions and Weightbearing Status: Existing Precautions/Restrictions: fall Lines/Tubes/Drains (Rehab Status): No critical lines at this time Patient Safety Communication Prior to Visit: Nursing Current brace/orthoses: Post-op shoe Current brace/orthoses wear schedule: When out of bed (Provided for safety of R great toe during ambulation) Subjective: Pt semi-recumbent on arrival. Agreeable to PT evaluation with RN approval. Now coughing up bloody secretions. Pain: General Pain Documentation (Adult, OB, Peds) Presence of Pain: reports pain/discomfort Pain Location: foot, left DVPRS (Defense and Veterans Pain Rating Scale) DVPRS: Rest: 7- severe pain DVPRS: Activity: 7- severe pain Home Setting Residence: House Lives With: sibling(s) (brother) Patient receives help from : (brother able to assist as needed) Patient reported support for discharge plannin hour supervision First floor setup: bedroom, tub shower, grab bars Number of stairs to enter home: 1 (also has a ramp if needed) Number of stairs in home: 0 Stair Railings at Home: entry - no rail Mobility Equipment Available: front-wheeled walker, rollator, straight cane ADL Equipment Available: elevated toilet seat, shower chair Home Environment Details: Single story home Previous Level of Function Gross Functional Mobility: independent Assistive Device: none used Prior level ADL Overview: Independent with all ADLs Dominant Hand: Right Bed Mobility: independent Transfers: independent Stairs: independent Ambulation: independent with all needs Prior Level of Function Details: Independent baseline. 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 Likes to go fishing. Denies recent falls. Objective/Observation: Vitals/Vitals Responses to Treatment: WFL; no s/s of distress with activity. Pt declines pulse ox with mobility, but post-ambulation, >92% w/ no s/s of distress. O2 Device: room air Cognition Overall Cognitive Status: (At risk) Arousal/Alertness: Appropriate responses to stimuli Orientation Level: Oriented X4 Following Commands: Follows one step commands with repetition, Follows one step commands with increased time Safety Judgment: Decreased awareness of need for assistance, Decreased awareness of need for safety Awareness of Errors: Assistance required to identify errors made, Assistance required to correct errors made Deficits: Decreased awareness of deficits Attention Span: Attends with cues to redirect Memory: Appears intact Problem Solving: Assistance required to identify errors made, Assistance required to generate solutions Cognition Comments: Impulsive throughout and with limited insight into deficits and need for assistance/safety Vision Screen Currently wearing corrective lenses: No Visual Impairments Observed?: No Speech Speech: no gross deficits noted Successful Methods (Communication Strategies): verbal speech Hearing Hearing: no gross deficits noted Extremity Assessments: RLE Assessment RLE Assessment: AROM WFL Right LE Assessment Details: R great toe wound with OM LLE Assessment LLE Assessment: AROM WFL Left LE Assessment Details: Hx of transmet amputation Proprioception Proprioception: intact Mobility Assessment: Supine to Sit Mobility Wells Level: Supine->Sit: contact guard assist Bed Features/Set-up: Supine->Sit: Head of bed elevated, Use of bed rail Skilled Rationale: Verbal cues, Initiation and execution of task Skilled Intervention/Details: Supine->Sit: Increased time to complete Sit to Supine Mobility Wells Level: Sit->Supine: stand-by assist Bed Features/Set-up: Sit->Supine: Head of bed elevated Skilled Rationale: Verbal cues, Initiation and execution of task Balance: Sitting Balance Static Sitting-Level of Assistance: Supervision Dynamic Sitting-Level of Assistance: Standby Sitting Balance Skilled Intervention/Details: no LOB during unsupported sitting EOB Standing Balance Static Standing-Level of Assistance: Contact guard Dynamic Standing-Level of Assistance: Contact guard Standing-Balance Support: Gait belt, No upper extremity support Skilled Rationale: Verbal cues, Cues for increased safety Standing Balance Skilled Intervention/Details: Maximal cueing for line safety throughout w/ pt impulsively standing and ambulating within room Transfer Assessment: Sit to Stand Transfer Wells Level: Sit->Stand: contact guard assist Assistive Device: Sit->Stand: gait belt Skilled Rationale: Verbal cues, Initiation and execution of task Skilled Intervention/Details: Sit->Stand: Pt impulsively stands from EOB w/ repeat cueing for line safety Stand to Sit Transfer Wells Level: Stand->Sit: contact guard assist Assistive Device: Stand->Sit: gait belt Skilled Rationale: Sequencing, Verbal cues, Hand placement, Controlled descent for sitting, Technique of activity, Initiation and execution of task, Cues for increased safety Skilled Intervention/Details: Stand->Sit: X1 EOB Gait/Functional Mobility: Gait Assessment Wells Level: Gait: contact guard assist Assistive Device: Gait: gait belt Ambulation Distance (Feet): 25 Gait Deviations Identified: decreased pamela, decreased gait speed, decreased heel strike, decreased step length, antalgic, left, increased postural sway Gait Skilled Rationale: verbal Skilled Intervention/Details - Gait: Pt ambulates with slow, antalgic gait within room and flexed posture; mild unsteadiness and poor line safety throughout requiring cues for safety; will benefit from use of rollator in future sessions to improve gait speed and stability; declines further ambulation into hallway and within room 2/2 not wanting to excacerbate cough Wheelchair Assessment Patient currently uses wheelchair?: No Outcome Score(s): CURRENT [facility] Basic Mobility Inpatient Short Form Turning over in bed: 3 - A Little Assistance Moving from lying on back to sittin - A Little Assistance Moving to and from bed to chair: 3 - A Little Assistance Sitting/standing from chair: 3 - A Little Assistance Walk in hospital room: 3 - A Little Assistance Climbing 3-5 steps with a railin - A Little Assistance CURRENT [facility] Mobility Raw Score: 18 CURRENT [facility] Mobility Functional Limitation: 46.58% Impaired in Basic Mobility Assessment & Plan: Patient was admitted for 85 y.o. male with a past medical history of CAD x7 stents, PAD s/ SFA-peroneal bypass 02/2025, left metatarsal amputation, chronic R foot ulcer, HTN, HDL, BPH who presents as a transfer from [facility] due to hemoptysis. and seen for therapy evaluation related to above to evaluate for fall risk and to assist with discharge planning. Exam findings include impairments in: Strength, Balance, Pain, Posture, Transfers, Gait/Locomotion, Skin integrity, Aerobic capacity/endurance. These impairments contribute to functional limitations including Ambulation/locomotion pain, Decreased ambulation distance/endurance, Difficulty stair climbing/descent, Increased fall risk, Difficulty ambulating on uneven/dynamic surfaces, Difficulty with transfers. Current clinical presentation is Evolving - changing/inconsistent clinical characteristics (Moderate). Patient history factors impacting Plan Of Care include PMH. Patient will benefit from skilled physical therapy to address these impairments, functional limitations, and participation restrictions and has good rehab potential to achieve therapy goals. Planned Therapy Interventions: balance training, endurance, functional activity tolerance, gait training, neuromuscular re-education, postural re-education, strengthening, transfer training Patient Instruction/Education this session: Learners: Patient Education provided: Activity outside of therapy, Discharge recommendations, Role of this discipline, Safety Teaching method: Verbal Education/Instruction Learner response: States/Identifies/Teaches back Learning preferences: Auditory Learning considerations: (safety awareness) Plan for next session: Progress gait distance with rollator; stair training Acute PT Goals Plan of Care by Amairani Anaya PT at 05/09/2025 8:36 AM Version 1 of 1 Problem: PT - General Goals Goal: Supine <-> Sit Transfers - Patient will perform supine to/from sit transfers with independence and without use of hospital bed features in order to improve functional mobility and safety. Outcome: Ongoing Goal: Sit <-> Stand Transfers - Patient will perform sit to/from stand transfers with independence and least restrictive device in order to improve functional mobility and safety. Outcome: Ongoing Goal: Standing Endurance/Balance - Patient will perform standing balance tasks for 15 min with independence and least restrictive device while maintaining an RPE of less than 5/10 to improve endurance and safety with standing tasks. Outcome: Ongoing Goal: Ambulation - Patient will ambulate 200 feet with independence and least restrictive device to improve ability to safely navigate home and community. Outcome: Ongoing Goal: Stairs - Patient will ascend/descend 1 stairs with independence, least restrictive device, and single railing(s) to improve ability to safely navigate home and community. Outcome: Ongoing Goal: Strength - Patient will demonstrate understanding of exercise program. Outcome: Ongoing PT treatment consisted of the following to progress towards the above goal(s): PT Evaluation and Treatment Time PT Evaluation (Moderate) Time Entry: 24 Evaluating Therapist: Amairani Anaya PT Additional Details: PT Co-Eval/Treatment Information Co-evaluation/co-treatment performed?: Yes, simultaneous billable skilled care was necessary due to medical complexity and functional deficits Other discipline: OT Rationale for need to co-eval/treat: postural control Evaluation Complexity Components History: High (3 personal factors and/or comorbidities) Body Systems Review: Moderate (Addressing a total of 3 or more elements) Clinical Presentation: Evolving - changing/inconsistent clinical characteristics (Moderate) Clinical Decision Making Complexity: Moderate Time In: 0836 Time Out: 0900 Total Visit Time: 24 minutes Total Treatment Time (skilled, billable minutes): 24 minutes PPE used during patient interaction: gloves Patient location at end of session: bed with head of bed elevated, lines intact Alarms on at end of session: bed alarm, RN aware Needs in reach. Upon discontinuation of Acute Care Physical Therapy Services or patient discharge from the hospital this note represents the current Physical Therapy Discharge Summary. documented in this encounter [facility] 05-13-2025 History of Present illness Narrative Final Discharge Planning CM met with patient at bedside and patient was agreeable to [facility] and [email or web address]. Final Discharge Planning Discharge Disposition: Home with Home Health Selected Continued Care - Admitted Since 05/09/2025 Home Medical Care Coordination complete. Service Provider Services Address Phone Fax Patient Preferred [email or web address] [facility] [address] [place] [address] [phone] -- Community Agency Name(s) For Handoff: [employer] [facility] [employer] Phone For Handoff: [phone] Fax For Handoff: [phone] Plan Plan: Patient will discharge home with [facility]. Patient/Family In Agreement With Plan: yes Alejandra Grey (Teresa), BEFORE SCHOOL BABYSITTER, [facility] Clinical Allergist/Immunologist Physician [facility] #[phone] Acute Physical Therapy Treatment Prior Gross Functional Mobility: independent Current AM-PAC score(s): 20 CURRENT AM-PAC Mobility Raw Score: 20 Based on the above AM-PAC score(s) and PT clinical judgment, patient is a good candidate for discharge to Home with Home Health Barriers to discharge home: Patient needs assistance with functional mobility Mobility equipment available at home: front-wheeled walker, rollator, straight cane ADL equipment available at home: elevated toilet seat, shower chair Equipment needed for discharge: none Current therapy frequency recommendation in acute: PT Therapy Frequency: 5 times a week Activity Recommendations for outside of rehab session: x1 assist to bed/chair Precautions and Weightbearing Status: Existing Precautions/Restrictions: fall Patient Safety Communication Prior to Visit: Nursing Current brace/orthoses: Left, Right (friedman padded boot and R post op shoe (pt declines use of it)) Current brace/orthoses wear schedule: When out of bed Subjective: Pt on EOB upon arrival and agreeable to therapy. Pain: General Pain Documentation (Adult, OB, Peds) Presence of Pain: reports pain/discomfort Pain Location: leg, left DVPRS (Defense and Veterans Pain Rating Scale) DVPRS: Rest: (no pain score given, a little pain ) Objective/Observation: Vitals/Vitals Responses to Treatment: Vitals appear WFL without any overt reactions. O2 Device: room air Cognition Overall Cognitive Status: Within Functional Limits Extremity Assessments: See PT Evaluation flowsheet for Extremity Measurement updates. Skin and Edema: Balance: Sitting Balance Static Sitting-Level of Assistance: Modified independent Dynamic Sitting-Level of Assistance: Modified independent Skilled Rationale: Verbal cues, Initiation and execution of task Sitting Balance Skilled Intervention/Details: At EOB with balance challenged with eating, and turning to look over shoulder, without LOB Standing Balance Static Standing-Level of Assistance: Supervision Dynamic Standing-Level of Assistance: Supervision Standing-Balance Support: Front-wheeled walker Skilled Rationale: Verbal cues, Initiation and execution of task Standing Balance Skilled Intervention/Details: at EOB and chair with/without AD and no LOB Mobility Assessment/Intervention: Transfer Assessment/Intervention: Sit to Stand Transfer Wells Level: Sit->Stand: supervision Assistive Device: Sit->Stand: front-wheeled walker Skilled Rationale: Verbal cues, Initiation and execution of task Skilled Intervention/Details: Sit->Stand: Pt tolerates x2 from EOB and x1 from chair without LOB with use of UEs. Stand to Sit Transfer Wells Level: Stand->Sit: supervision Assistive Device: Stand->Sit: front-wheeled walker Skilled Rationale: Verbal cues, Initiation and execution of task Skilled Intervention/Details: Stand->Sit: x1 to bed and x2 to chair Gait/Functional Mobility Assessment/Intervention: Gait Assessment Wells Level: Gait: supervision Assistive Device: Gait: front-wheeled walker Ambulation Distance (Feet): 70 Gait Deviations Identified: antalgic, decreased pamela, flexed posture Gait Skilled Rationale: verbal, upright posture Skilled Intervention/Details - Gait: Pt declines adjusting height of AD and prefers a lower height. He requrests and performs gait training at less distance today due to feeling tired after walking yesterday. Pt demonstrates improved control of AD Stairs Assessment/Intervention: Stairs Assessment Wells Level: Stair Negotiation: stand-by assist Assistive Device: Stair Negotiation: jonathan walker Number of stairs: 1 (x2) Stairs Skilled Rationale: verbal, general safety Skilled Intervention/Details - Stairs: Pt declines stair training initially but with encouragement he performs stepping up on a curb step x2 with vc for stepping up with R and down with left (backed down) Outcome Score(s): CURRENT [facility] Basic Mobility Inpatient Short Form Turning over in bed: 4 - No Assistance Moving from lying on back to sittin - No Assistance Moving to and from bed to chair: 3 - A Little Assistance Sitting/standing from chair: 3 - A Little Assistance Walk in hospital room: 3 - A Little Assistance Climbing 3-5 steps with a railin - A Little Assistance CURRENT [facility] Mobility Raw Score: 20 CURRENT [facility] Mobility Functional Limitation: 35.83% Impaired in Basic Mobility Interventions: Assessment & Plan: Pt tolerates session without any overt reactions. He continues to require skilled services for improved transfers and functional mobility. Pt performs gait training and transfers and stair training. He demonstrates improving strength and activity tolerance. Pt is progressing toward goals. Patient Instruction/Education this session: Learners: Patient Education provided: Gait training safety, Activity outside of therapy, Fall precautions, Functional transfers Plan for next session: progress gait distance if not dc Acute PT Goals Plan of Care by Sakshi Medina PTA at 05/13/2025 9:03 AM Version 1 of 1 Problem: PT - General Goals Goal: Sit <-> Stand Transfers - Patient will perform sit to/from stand transfers with independence and least restrictive device in order to improve functional mobility and safety. Outcome: Progressing Goal: Ambulation - Patient will ambulate 200 feet with independence and least restrictive device to improve ability to safely navigate home and community. Outcome: Ongoing Goal: Stairs - Patient will ascend/descend 1 stairs with independence, least restrictive device, and single railing(s) to improve ability to safely navigate home and community. Outcome: Progressing PT treatment consisted of the following to progress towards the above goal(s): PT Evaluation and Treatment Time Therapeutic Activity Time Entry: 15 Gait Training Time Entry: 8 Treating Therapist: Sakshi Medina PTA Additional Details: PT Co-Eval/Treatment Information Co-evaluation/co-treatment performed?: No simultaneous skilled care performed PPE used during patient interaction: gloves, facemask, gown Patient location at end of session: chair Alarms on at end of session: none altered Needs in reach. Time In: 902 Time Out: 929 Total Visit Time: 27 minutes Total Treatment Time (skilled, billable minutes): 23 minutes Upon discontinuation of Acute Care Physical Therapy Services or patient discharge from the hospital this note represents the current Physical Therapy Discharge Summary. Cosigned by Maggy Almaraz PT at 05/13/2025 3:16 PM EDT Associated attestation - Maggy Almaraz PT - 05/13/2025 3:16 PM EDT This note was reviewed to reflect the patient's clinical status and the treatment plan. I have read and agree with this note. Maggy Almaraz PT Pulmonary Inpatient Consult Follow Up Note We saw Mr. Tristin Powell in follow-up on 05/12/2025. Impression: Hemoptysis PNA - infected bullae from report COPD Exacerbation Rhinoviral infection Continued Recommendations: Cont off antibiotics per ID Cont prednisone taper Cont duonebs Patient will NOT need chronic bronchodilators post discharge Follow on Xarelto Will need pulmonary follow-up 6 weeks after discharge Interim History Continued coughing. Otherwise, up and moving well. Feels that cefepime increased chest congestion. Exam and Objective Data: Physical Exam Temp: [97.8 F (36.6 C)-98.3 F (36.8 C)] 97.8 F (36.6 C) Pulse (Heart Rate): [71-78] 75 Resp Rate: [18-20] 18 BP: (151-178)/(67-82) 151/69 O2 Sat (%): [94 %-97 %] 96 % Intake/Output Summary (Last 24 hours) at 05/12/2025 1702 Last data filed at 05/12/2025 1608 Gross per 24 hour Intake 1764.72 ml Output 1325 ml Net 439.72 ml Fluid Management (24hrs): -Intake/Output for last 24 Hours: I/O last 3 completed shifts: In: - Out: 1325 [Urine:1325] GEN: pleasant, no acute distress HEENT: PERRL, sclera non-icteric, oropharynx clear, moist mucous membranes. Neck supple. No LAD. LUNGS: Diminished CV: RRR. No murmurs, rubs or gallops. No JVD ABD: Soft EXTR: no edema, clubbing, or cyanosis. S/p L amputation LE NEURO: MEWS Score (Validated): -- RASS: 0-->alert and calm (05/12 1205) Ventilation/Oxygen Therapy (24hrs): Oxygen Therapy O2 Sat (%): 96 % O2 Device: room air Laboratory Data: Lab Results Component Value Date SODIUM 138 05/11/2025 SODIUM 139 06/17/2021 POTASSIUM 3.6 05/11/2025 POTASSIUM 4.5 06/17/2021 CHLORIDE 106 05/11/2025 CHLORIDE 105 06/17/2021 CO2 22 05/11/2025 CO2 26 06/17/2021 BUN 20 05/11/2025 BUN 17 06/17/2021 CREATSERUM 0.78 05/12/2025 CREATSERUM 1.05 06/17/2021 TROP 0.02 10/31/2018 WBC 5.52 05/12/2025 WBC 10.0 07/16/2021 HGB 10.0 (L) 05/12/2025 HGB 11.7 (L) 07/16/2021 HCT 29.7 (L) 05/12/2025 HCT 34.2 (L) 07/16/2021 PLATELET 215 05/12/2025 PLATELET 127 (L) 07/16/2021 PT 14.4 (H) 05/09/2025 PT 13.7 06/17/2021 PTT 23.6 (L) 05/09/2025 PTT 106.8 (H) 09/04/2018 INR 1.1 05/09/2025 INR 1.03 06/17/2021 Imaging: I have personally and interpreted reviewed the radiographic data in [facility]. Thank you for the consultation. Please call with questions. Beena Nguyen MD MPH [id number] Images from the original note were not included. DIVISION OF INFECTIOUS DISEASES FOLLOW UP NOTE - TEAM 5 SUBJECTIVE/INTERVAL HISTORY: Pt is a 85 y.o. male being followed by ID for CAP with c/f infected bullae. He reports feeling improved off antibiotics. He feels the antibiotics caused him chest tightness. Continues with intermittent coughing episodes. REVIEW OF SYSTEMS: As above Fall Risk: Assessed for patient fall risk and communicated pertinent findings to multidisciplinary team. MEDICATIONS reviewed, antimicrobials include: aspirin 81 mg Oral Daily atorvastatin 80 mg Oral Daily collagenase 1 Application Topical Daily Ipratropium-albuterol 3 mL Nebulization Q6H Losartan 25 mg Oral Daily Metoprolol 50 mg Oral BID Pantoprazole 40 mg Oral Daily Polyethylene glycol 17 g Oral BID predniSONE 40 mg Oral Daily Followed by [START ON 05/14/2025] predniSONE 30 mg Oral Daily Followed by [START ON 05/18/2025] predniSONE 20 mg Oral Daily Followed by [START ON 05/22/2025] predniSONE 10 mg Oral Daily Rivaroxaban 2.5 mg Oral BID Senna 8.6 mg Oral BID Tamsulosin HCl 0.4 mg Oral Daily PHYSICAL EXAM: Vitals: BP 164/82 Pulse 71 Temp 98.2 F (36.8 C) (Oral) Resp 18 Ht 1.88 m (6' 2 ) Wt 108.9 kg (240 lb) SpO2 95% BMI 30.81 kg/m Smoking Status Never General: The patient is a well-developed, well-nourished male in no apparent distress. HEENT: Head is normocephalic and atraumatic. Conjunctiva clear. Neck: Supple. Heart: Regular, rate and rhythm without murmurs appreciated. Lungs: Clear to auscultation bilaterally with no wheezes, rhonchi or rales noted. Abdomen: Soft, nontender, and nondistended. Normal bowel sounds x4 quads. Extremities: Without edema. Neurologic:Alert and cooperative. Skin: Toe wound reviewed under media tab. No rash noted on exposed skin. Psych: Pleasant mood with appropriate affect Central Line Type: n/a LABS: WBC/Hgb/Hct/Plts: 5.52/10.0/29.7/215 (05/12 509) Lab Results Component Value Date RBCDISTRIBU 14.5 (H) 05/12/2025 GRNLOCYT 77.5 05/12/2025 LYMPHOCYT 10.7 05/12/2025 MONOCYTELEC 8.9 05/12/2025 EOSINOPHILS 0.9 05/12/2025 BASOPHILS 0.2 05/12/2025 GRNLOCTYABS 1.8 09/01/2011 LYMPHOCYTABS 0.59 (L) 05/12/2025 MONOSABSOLU 0.6 09/01/2011 EOSINOPHLABS 0.05 05/12/2025 BASOPHILSABS 0.0 09/01/2011 PLATELET 215 05/12/2025 MPV 9.4 05/12/2025 Bun/Creat/Cl/CO2/Glucose: --/0.78/--/--/-- (05/12 509) Lab Results Component Value Date ALT 99 (H) 05/11/2025 AST 34 05/11/2025 ALKPHOS 72 05/11/2025 BILITOTAL 0.6 05/11/2025 BILIDIRECT 0.2 05/11/2025 Lab Results Component Value Date SEDRATE 120 (H) 05/10/2025 SEDRATE 4 09/02/2011 Lab Results Component Value Date CRP 37.48 (H) 05/10/2025 CRP 1.39 09/01/2011 Urinalysis Lab Results Component Value Date SPGRVTYUR 1.020 06/17/2021 GLUCOSEURINE NEGATIVE 06/17/2021 BILIRUBINURI NEGATIVE 06/17/2021 KETONESURINE NEGATIVE 06/17/2021 BLOODURINE NEGATIVE 09/01/2011 NITRITESURIN NEGATIVE 06/17/2021 LEUKOCESTUR NEGATIVE 06/17/2021 WBCURINE NEGATIVE 08/01/2018 RBCURINE NEGATIVE 08/01/2018 BACTERIAURIN NEGATIVE 08/01/2018 Microbiology: [facility] 05/02/25 - RVP - rhinovirus 05/02/25 - covid neg 05/04/25 - Scx 1) strep pneumo S: levo (1), vanco (0.5), I: amox/clav (4/2), cefepime (2), ceftriaxone (1). R: cefuroxime (>2), sung (>0.5), PCN (4), tetra (>4), TMP/SMX (>2/38) 2) PSA S: cefepime, ceftaz/elian, ceftolozane/tazo, sung, tobra. IB: aztreo (<4), ceftaz (IB), pip/tazo (<8). R: cipro (2) 05/04/25 - MRSA nares neg 05/05/25 - Scx nl cameron 05/06/25 - legionella ag neg 05/06/25 - strep pneumo ag neg [facility] cx: 05/10 LRT - contaminated Imaging: US ABDOMEN RUQ/LIVER/GB Final Result IMPRESSION: 1. Hepatic steatosis. 2. Gallstones without cholecystitis. ANKLE BRACHIAL INDEX (Results Pending) ASSESSMENT: Tristin Powell Sr. is a 85 y.o. male with a PMH; of CAD, PAD s/p SFA-peroneal bypass 02/2025, HTN, HLD, BPH, A fib, CKD3a and toe wound being treated by local podiatry. He was admitted to [facility] 05/[address] chest revealing 10 cm air-filled collection in LLL c/f infected bullae vs abscess. He was transferred to [facility] due to worsening hemoptysis and potential need for embolization. His initial sputum cx at OSH grew pneumococcus. He was placed on IV vanc/ cefepime. He was evaluated by pulmonary. He has completed 7 days of antibiotics with clinical improvement noted. Will plan to monitor off antibiotics. Patient was advised of the plan. CAP Rhinovirus Probable infected bullae - treated Hemoptysis - improving COPD PAD Toe ulcer - follows with outside podiatry -Estimated Creatinine Clearance: 89 mL/min (by C-G formula based on SCr of 0.78 mg/dL). RECOMMENDATIONS: Monitor off antibiotics Follow up with podiatry and pulm after discharge . Recommendations provided to primary team. ID Team 5 will sign off. Please call with questions. ID ATTENDING: Dr Ching, AMELIA, MS, Adult GAME ENGINEER-C Infectious Diseases Pager [phone] Cosigned by Fidel Nguyen MD, PhD at 05/12/2025 4:46 PM EDT Associated attestation - Fidel Nguyen MD, PhD - 05/12/2025 4:46 PM EDT ID Staff: I have interviewed and examined patient independently (05-12-25) and have discussed case with the ID GAME ENGINEER. In addition, the chart, labs, micro, radiology, and vitals reviewed. I agree with the findings and recommendations as documented above by Rhonda Yoon CNP which reflect our combined clinical decision making. Fidel Nguyen MD, PhD Division of Infectious Diseases [facility] Medicine Progress Note Patient: Tristin Powell Sr., : 1940, Impression / Plan Acute bronchitis 2/2 rhinovirus CAP - strep pneumo and pseudomonas Lung abscess vs infected bullae- review of imaging seems to favor bullae Hemoptysis, non massive CT chest on 05/04 showing bilateral patchy infiltrates, 10 cm air-fluid collection LLL c/f infected bullae vs abscess. Images pushed to out system - Appreciate pulm recs. Cont. prednisone taper. Ok to resume anticoagulation and monitor today - Cont. Nebs. Recommend albuterol at discharge and follow-up outpatient pulm for review of repeat CT and further eval of COPD - appreciate ID recs. Since sputum culture negative and he's received > 8 days of therapy this should be sufficient for PNA. Will stop antibiotics - Cont. Codeine/robitussin, has cough drops at bedside - if he starts having massive hemoptysis needs stat CTA and IR for embolization - Anticipate may be able to head home tomorrow if he remains stable. Ok for transfer to the floor. History of left upper lobe nodule - not specifically commented on on recent CT. Per patient, this resolved. Transaminitis - RUQ US with steatosis but no masses - chronic hep battery negative COPD exacerbation (resolved) with large emphesematous component No wheezing, less overall air movement today. - Extending prednisone therapy per taper by pulm - breathing treatments as above - needs outpatient pulm follow-up with repeat CT - pulm only wants albuterol at discharge Acute hypoxic resp failure - resolved At [facility] requiring o2. 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 No e/o SSTI currently. I did mention that he will need to stop his anticoagulation again outpatient if he plans to have toe amputated closer to home - resume aspirin and Xarelto today CAD x7 stents HDL - ASA as above - cont atorvastatin HTN - remains hypertensive but says he's better at home and doesn't desire increasing meds - cont losartan, metop BPH - cont flomax GERD - cont PPI Problem list reviewed at admission. Quality Self-Check Complexity. . Obesity, class I Body mass index is 30.81 kg/m . - Follow with PCP for dietary and lifestyle modifications. Wound Documentation Wound Vascular Ulcer Arterial 05/09/25940 Anterior;Right Foot (Active) Date First Assessed/Time First Assessed: 05/09/25940 Primary Wound Type: Vascular Ulcer Secondary Wound Type - Vascular Ulcer: Arterial Present on Original Admission: Yes Wound Location Orientation: Anterior;Right Location: Foot Any conditions listed below are present on admission unless otherwise specified. . DVT prophylaxis with SCD's Anticipated Disposition: home in 1-2 days Code status is Full Code Interval History / Subjective Feeling better. Not coughing as much. Nebs this morning seemed to help him get some gunk out. Bleeding stable to improved. Objective Temp: [97.5 F (36.4 C)-98.3 F (36.8 C)] 98.2 F (36.8 C) Pulse (Heart Rate): [71-86] 71 Resp Rate: [18-22] 18 BP: (152-178)/(67-82) 164/82 O2 Sat (%): [94 %-97 %] 95 % Physical Exam Gen: A, A, NAD ENT: MMM Resp: CTA bilat, more air movement b/l today, normal effort Cardio: RRR, normal S1, S2, No OSCAR GI: S/NT/ND, NABS Psych: Ox3, appropriate affect and cognition Skin: Right great toe ulceration with exposed bone Data Review WBC/Hgb/Hct/Plts: 5.52/10.0/29.7/215 (05/12 509) Bun/Creat/Cl/CO2/Glucose: --/0.78/--/--/-- (05/12 509) Resp culture - normal oral cameron Signed, Rafaela Garcia MD Acute Physical Therapy Treatment Prior Gross Functional Mobility: independent Current AM-PAC score(s): 18 CURRENT AM-PAC Mobility Raw Score: 18 Based on the above AM-PAC score(s) and PT clinical judgment, patient is a good candidate for discharge to Home with Home Health Barriers to discharge home: Patient needs assistance with functional mobility Mobility equipment available at home: front-wheeled walker, rollator, straight cane ADL equipment available at home: elevated toilet seat, shower chair Equipment needed for discharge: none Current therapy frequency recommendation in acute: PT Therapy Frequency: 5 times a week Activity Recommendations for outside of rehab session: x1 assist to bed/chair Precautions and Weightbearing Status: Existing Precautions/Restrictions: fall Lines/Tubes/Drains (Rehab Status): No critical lines at this time Patient Safety Communication Prior to Visit: Nursing Current brace/orthoses: Post-op shoe Current brace/orthoses wear schedule: When out of bed (Provided by PT for safety of R great toe during ambulation) Subjective: Pt in bed upon arrival and agreeable to therapy. Pain: General Pain Documentation (Adult, OB, Peds) Presence of Pain: reports pain/discomfort Pain Location: heel, right, leg, left DVPRS (Defense and Veterans Pain Rating Scale) DVPRS: Rest: 5- moderate pain DVPRS: Activity: 5- moderate pain Objective/Observation: Vitals/Vitals Responses to Treatment: Vitals appear WFL without any overt reactions. O2 Device: room air Cognition Overall Cognitive Status: Within Functional Limits Arousal/Alertness: Appropriate responses to stimuli Orientation Level: Oriented X4 Following Commands: Follows one step commands without difficulty Safety Judgment: Decreased awareness of need for assistance, Decreased awareness of need for safety Awareness of Errors: Assistance required to identify errors made, Assistance required to correct errors made Deficits: Fully aware of deficits Attention Span: Appears intact Memory: Appears intact Problem Solving: Able to problem solve independently Extremity Assessments: See PT Evaluation flowsheet for Extremity Measurement updates. Skin and Edema: Balance: Sitting Balance Static Sitting-Level of Assistance: Supervision Dynamic Sitting-Level of Assistance: Standby Skilled Rationale: Verbal cues Sitting Balance Skilled Intervention/Details: No overt LOB while seated EOB Standing Balance Static Standing-Level of Assistance: Stand-by assist Dynamic Standing-Level of Assistance: Contact guard, Stand-by assist Standing-Balance Support: Gait belt, Front-wheeled walker Skilled Rationale: Verbal cues, Initiation and execution of task, Full extension to upright positioning/posture Standing Balance Skilled Intervention/Details: at EOB and windows with pt requiring cues to correct and declines increasing height of ww. Pt tolerates standing at windows ~5 min. Mobility Assessment/Intervention: Supine to Sit Mobility Wells Level: Supine->Sit: stand-by assist Bed Features/Set-up: Supine->Sit: Head of bed elevated, Use of bed rail Skilled Rationale: Verbal cues, Initiation and execution of task Skilled Intervention/Details: Supine->Sit: x1 to EOB Sit to Supine Mobility Wells Level: Sit->Supine: not tested Skilled Intervention/Details: Sit->Supine: pt in chair at end of session Transfer Assessment/Intervention: Sit to Stand Transfer Wells Level: Sit->Stand: contact guard assist Assistive Device: Sit->Stand: gait belt, front-wheeled walker Skilled Rationale: Verbal cues, Initiation and execution of task Skilled Intervention/Details: Sit->Stand: x2 from EOB and x1 from chair Stand to Sit Transfer Wells Level: Stand->Sit: contact guard assist Assistive Device: Stand->Sit: gait belt, front-wheeled walker, armed chair, rail Skilled Rationale: Verbal cues, Initiation and execution of task Skilled Intervention/Details: Stand->Sit: x1 to bed and x2 to chair with cues for safety Gait/Functional Mobility Assessment/Intervention: Gait Assessment Wells Level: Gait: contact guard assist Assistive Device: Gait: gait belt, front-wheeled walker Ambulation Distance (Feet): 90 Gait Deviations Identified: antalgic, decreased pamela, decreased step length, decreased stride length, flexed posture Gait Skilled Rationale: verbal, upright posture Skilled Intervention/Details - Gait: Pt performs gait training in hallway and is cued for energy conservation to maintain safety with gait distance. He performs turn in hallway with pivoting ww on one back support (and quickly). Pt is cued for safer turning with AD. Stairs Assessment/Intervention: Stairs Assessment Wells Level: Stair Negotiation: not tested Outcome Score(s): CURRENT [facility] Basic Mobility Inpatient Short Form Turning over in bed: 4 - No Assistance Moving from lying on back to sittin - A Little Assistance Moving to and from bed to chair: 3 - A Little Assistance Sitting/standing from chair: 3 - A Little Assistance Walk in hospital room: 3 - A Little Assistance Climbing 3-5 steps with a railin - A Lot of Assistance CURRENT [facility] Mobility Raw Score: 18 CURRENT [facility] Mobility Functional Limitation: 46.58% Impaired in Basic Mobility Interventions: Intervention 1 Intervention Name: ther ex Sets/Reps/Duration: x10 Details: pt performs standing ex at the window ledge of knee flex, hip abd and marches for strengthening and improved balance. Assessment & Plan: Pt tolerates session without any overt reactions. He continues to require skilled services for improved transfers and functional mobility. Pt lacks some safety. He amb with use of friedman padded orthotic on L LE (in place of foot) and declines use of post op shoe for gait training this session. Pt performs HEP, transfers and gait with improvements and progressing toward goals. Patient Instruction/Education this session: Learners: Patient Education provided: Gait training safety Plan for next session: progress gait distance, stair/s Acute PT Goals Plan of Care by Sakshi Medina PTA at 05/12/2025 8:18 AM Version 1 of 1 Problem: PT - General Goals Goal: Supine <-> Sit Transfers - Patient will perform supine to/from sit transfers with independence and without use of hospital bed features in order to improve functional mobility and safety. Outcome: Progressing Goal: Sit <-> Stand Transfers - Patient will perform sit to/from stand transfers with independence and least restrictive device in order to improve functional mobility and safety. Outcome: Progressing Goal: Standing Endurance/Balance - Patient will perform standing balance tasks for 15 min with independence and least restrictive device while maintaining an RPE of less than 5/10 to improve endurance and safety with standing tasks. Outcome: Progressing Goal: Ambulation - Patient will ambulate 200 feet with independence and least restrictive device to improve ability to safely navigate home and community. Outcome: Progressing Goal: Strength - Patient will demonstrate understanding of exercise program. Outcome: Progressing PT treatment consisted of the following to progress towards the above goal(s): PT Evaluation and Treatment Time Therapeutic Activity Time Entry: 17 Gait Training Time Entry: 15 Treating Therapist: Sakshi Medina PTA Additional Details: PT Co-Eval/Treatment Information Co-evaluation/co-treatment performed?: No simultaneous skilled care performed PPE used during patient interaction: facemask, gloves, gown Patient location at end of session: chair Alarms on at end of session: none altered Needs in reach. Time In: 0818 Time Out: 0850 Total Visit Time: 32 minutes Total Treatment Time (skilled, billable minutes): 32 minutes Upon discontinuation of Acute Care Physical Therapy Services or patient discharge from the hospital this note represents the current Physical Therapy Discharge Summary. Cosigned by Oscar Gann PT at 05/12/2025 1:41 PM EDT [facility] Medicine Progress Note Patient: Tristin Bazan Sherry Lima, : 1940, Impression / Plan Acute bronchitis 2/2 rhinovirus CAP - strep pneumo and pseudomonas Lung abscess vs infected bullae- review of imaging seems to favor bullae Hemoptysis, non massive CT chest on 05/04 showing bilateral patchy infiltrates, 10 cm air-fluid collection LLL c/f infected bullae vs abscess. Images pushed to out system - Appreciate pulm recs. Cont. prednisone taper, - Stop TXA. - Breathing treatments q6h - Cont. Codeine/robitussin, has cough drops at bedside - appreciate ID input. Continue current antibiotics. Suspect these can be stopped as it seems strep and pseudomonas have now resolved in respiratory culture. Will discuss with ID - hemoglobin stable currently. - if he starts having massive hemoptysis needs stat CTA and IR for embolization - Plan for tomorrow will be to start home anticoagulation and monitor. History of left upper lobe nodule - not specifically commented on on recent CT. Transaminitis - RUQ US with steatosis but no masses - chronic hep battery negative COPD exacerbation (resolved) with large emphesematous component No wheezing, less overall air movement today. - Extending prednisone therapy per taper by pulm - breathing treatments as above - needs outpatient pulm follow-up Acute hypoxic resp failure - resolved At [facility] [place] requiring o2. 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 No e/o SSTI currently - rivaroxaban, ASA on hold for hemoptysis. Discussed with pulm today- if hemoptysis remains low volume today will resume anticoagulation on Monday. Can consider doing so with heparin gtt to ensure he tolerates. CAD x7 stents HDL - ASA as above - cont atorvastatin HTN - well controlled - cont losartan, metop BPH - cont flomax GERD - cont PPI Problem list reviewed at admission. Quality Self-Check Complexity. . Obesity, class I Body mass index is 30.81 kg/m . - Follow with PCP for dietary and lifestyle modifications. Wound Documentation Wound Vascular Ulcer Arterial 05/09/25940 Anterior;Right Foot (Active) Date First Assessed/Time First Assessed: 05/09/25940 Primary Wound Type: Vascular Ulcer Secondary Wound Type - Vascular Ulcer: Arterial Present on Original Admission: Yes Wound Location Orientation: Anterior;Right Location: Foot Any conditions listed below are present on admission unless otherwise specified. . DVT prophylaxis with SCD's given bleeding Anticipated Disposition: home Code status is Full Code Interval History / Subjective Sitting up eating breakfast. Says things are about the same. Coughs up some mucous that is blood tinged while I am in the room. Has a plastic cup that is maybe a fifth [address] full of sputum. Objective Temp: [97.4 F (36.3 C)-97.9 F (36.6 C)] 97.7 F (36.5 C) Pulse (Heart Rate): [74-105] 103 Resp Rate: [14-18] 14 BP: (139-159)/(68-90) 140/72 O2 Sat (%): [92 %-94 %] 93 % Physical Exam Gen: A, A, NAD ENT: MMM Resp: CTA bilat, more air movement b/l today, normal effort Cardio: RRR, normal S1, S2, No OSCAR GI: S/NT/ND, NABS Psych: Ox3, appropriate affect and cognition Skin: Right great toe ulceration with exposed bone Data Review WBC/Hgb/Hct/Plts: 6.50/11.1/33.7/211 (05/11 353) Na/K+/Phos/Mg/Ca: 138/3.6/--/--/-- (05/11 353) Bun/Creat/Cl/CO2/Glucose: 20/0.89/106/22/-- (05/11 353) Lab Results Component Value Date ALT 99 (H) 05/11/2025 AST 34 05/11/2025 ALKPHOS 72 05/11/2025 BILITOTAL 0.6 05/11/2025 BILIDIRECT 0.2 05/11/2025 Signed, Rafaela Garcia MD 05/11/25 0828 Respiratory Interventions RT Intervention Acuity Assessment RT Acuity Assessment Tool RT Protocol Assessment 24 hour reassessment mMRC Dyspnea Score 0 RT Modified Robert Score 0 Combined Dyspnea Score 0 RT Acuity Level 4 Current Orders: Duo Q6. TXA Q12 Tx Indication: Per Respiratory Therapy Directed Asthma and COPD Inhaler Protocol: acuity level 4 Respiratory Plan of Care: COPD exacerbation, continue DUo Q6 for 24 hours and reassess. The patient's respiratory plan of care was updated by Yris Martinez RCP 05/11/2025 12:48 PM Images from the original note were not included. Pulmonary/Critical Care Medicine Consult Progress Note Length of Stay: 1 days Interval History: Cup bedside with dark red sputum, patient states he believes that his coughing is improved. Objective Findings: Physical Exam: Temp: [97.4 F (36.3 C)-99.2 F (37.3 C)] 97.7 F (36.5 C) Pulse (Heart Rate): [74-105] 83 Resp Rate: [16-18] 18 BP: (139-159)/(67-90) 159/90 O2 Sat (%): [92 %-94 %] 92 % GEN: well-appearing, NAD, normal weight. HEENT: normal conjunctivae. RESP: CTAB w/ good air movement, no w/r/r, breathing comfortably on RA. Some dried blood in cup bedside CV: RRR, normal S1 and S2, no r/g/m, no LE edema, no JVD. MSK: no deformity. SKIN: warm, dry. NEURO: alert, responds appropriately to questions, no gross motor deficit. Lab Data: WBC/Hgb/Hct/Plts: 6.50/11.1/33.7/211 (05/11 353) Na/K+/Phos/Mg/Ca: 138/3.6/--/--/-- (05/11 353) Bun/Creat/Cl/CO2/Glucose: 20/0.89/106/22/-- (05/11 353) I have personally reviewed and interpreted the following imaging studies with the pulmonary/critical care attending. Official reports included below: CT 05/06 Impression & Recommendations: Tristin Bazan Sherry Lima is a 85 y.o. male with CAD s/p stent x7, PAD s/p SFA-peroneal bypass, L foot amputation, chronic R foot ulcer, HTN, HLD, BPH who presented on 05/09/2025 from OSH for hemoptysis. Impression: Abnormal Chest CT, reported cavitary lesion Hemoptysis COPD Exacerbation Hemoptysis likely secondary to intrapulmonary pathology at OSH. Appears to be large component of air trapping. Also previously on ASA and xarelto outpatient likely oozing from erosion of lung parenchyma. Was receiving TXA nebs outpatient but continues to have hemoptysis at this time with a productive cough. Recommendations: Continue to quantify hemoptysis with bedside cup Prednisone 40mg for 4 days, 30mg for 4 days, 20mg for 4 days, then 10mg for 4 days Please discontinue TXA nebs OK to restart AC tomorrow 05/12 Daily Hg trend If patient starts to have large volume hemoptysis, please obtain STAT CTA chest with IR consult for embolization eval Staff: Connie Thank you for this consult. All recommendations are preliminary until cosigned by the attending. Obdulio Chapa MD PGY-4, Pulmonary and Critical Care Medicine Cosigned by BOLA Caceres [facility] at 05/11/2025 11:33 AM EDT Associated attestation - Carmel Rosales MB [facility] - 05/11/2025 11:33 AM EDT Pulmonary Attending Attestation: I have personally seen and evaluated Mr. Powell and reviewed Dr. Chapa's note. I agree with findings and plan. I have personally completed the following: reviewed the lab and culture data, rounded with the consult team, seen and examined the patient and reviewed the available imaging data. Additional details as outlined by the consult team. Thank you for the opportunity to participate in Mr. Powell's care. Carmel Rosales MD, [facility] [place] [facility], [facility] Chimney Supervisor [employer] Pulmonary and Critical Care Pager #[phone] Attending Physician 05/11/2025 11:33 AM Department of Pharmacy Pharmacokinetics Progress Note Patient: Tristin Powell [facility] Assessment and Plan: Based upon drug level assessment and interpretation (steady state), I have changed the vancomycin dose and/or dosing interval to 1500 mg IV every 12 hours to start at 1900 on 05/10/25. A pharmacist will continue to follow and order drug levels and adjust dosing as clinically appropriate. I have modified the orders in IHIS to reflect the above plan. Vancomycin regimen at time of level: Vancomycin 1250 mg IV every 12 hours Last Dose Administered: Dose: Date: Time: 1250 mg 05/10/25 0523 Levels: 13.9 mcg/mL drawn at 1740 on 05/10. Level was a trough. Most Recent Labs: WBC Count Date Value Ref Range Status 05/09/2025 6.41 3.73 - 10.10 K/uL Final BUN Date Value Ref Range Status 05/09/2025 25 7 - 25 mg/dL Final Creatinine Date Value Ref Range Status 05/10/2025 0.85 0.70 - 1.30 mg/dL Final I/O last 3 completed shifts: In: 875.8 [P.O.:480; IV Piggyback:395.8] Out: 1650 [Urine:1650] Estimated Creatinine Clearance: 82 mL/min (by C-G formula based on SCr of 0.85 mg/dL). Ongoing Vancomycin Monitoring: The following trough goal is recommended for ongoing therapy based on the suspected/confirmed source of infection and today s calculations: Goal trough range: 15-20 mcg/mL If therapy is to be continued after discharge, please contact pharmacy for appropriate dosing. Please feel free to contact me with any further questions. Name: Monica Martin RPH Phone: [phone] Date/Time: 05/10/2025 6:35 PM [facility] Medicine Progress Note Patient: Tristin Powell , : 1940, Impression / Plan Acute bronchitis 2/2 rhinovirus CAP - strep pneumo and pseudomonas Lung abscess vs infected bullae- review of imaging seems to favor bullae Hemoptysis, non massive CT chest on 05/04 showing bilateral patchy infiltrates, 10 cm air-fluid collection LLL c/f infected bullae vs abscess. Images pushed to out system - Appreciate pulm recs. Started a prednisone taper and resumed TXA nebs BID. Hemoptysis appears to be relatively low volume at this time. - Breathing treatments q6h - Cont. Codeine/robitussin, has cough drops at bedside - appreciate ID input. Continue current antibiotics - hemoglobin stable currently. - if he starts having massive hemoptysis needs stat CTA and IR for embolization History of left upper lobe nodule - will see if this is still present on latest CT chest. Given age, c/f underlying malignancy Transaminitis - RUQ US with steatosis but no masses - chronic hep battery negative COPD exacerbation (resolved) No wheezing, less overall air movement today. - Extending prednisone therapy per taper by pulm - breathing treatments as above Acute hypoxic resp failure - resolved At [facility] [place] requiring o2. 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 No e/o SSTI currently - rivaroxaban, ASA on hold for hemoptysis. Discussed with pulm today- if hemoptysis remains low volume over weekend would resume anticoagulation on Monday. Can consider doing so with heparin gtt to ensure he tolerates. CAD x7 stents HDL - ASA as above - cont atorvastatin HTN - well controlled - cont losartan, metop BPH - cont flomax GERD - cont PPI Problem list reviewed at admission. Quality Self-Check Complexity. . Obesity, class I Body mass index is 30.81 kg/m . - Follow with PCP for dietary and lifestyle modifications. Wound Documentation Wound Vascular Ulcer Arterial 05/09/25940 Anterior;Right Foot (Active) Date First Assessed/Time First Assessed: 05/09/25940 Primary Wound Type: Vascular Ulcer Secondary Wound Type - Vascular Ulcer: Arterial Present on Original Admission: Yes Wound Location Orientation: Anterior;Right Location: Foot Any conditions listed below are present on admission unless otherwise specified. . DVT prophylaxis with SCD's given bleeding Anticipated Disposition: home Code status is Full Code Interval History / Subjective Feeling ok. Says he's had bleeding issues for over 2 weeks now. Feels that what is in the tube is a lot. Stays it only seems to occur when he really gets to coughing a lot. Does not feel like what he's using for cough is sufficient. 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 Says he has COPD. Denies any chest pain. Has a history of DAYANNA lung nodule. Objective Temp: [97.9 F (36.6 C)-99.2 F (37.3 C)] 99.2 F (37.3 C) Pulse (Heart Rate): [84-96] 95 Resp Rate: [15-28] 16 BP: (140-195)/(65-85) 150/67 O2 Sat (%): [92 %-96 %] 92 % Physical Exam Gen: A, A, NAD, sitting straight up in bed ENT: MMM Resp: CTA bilat, diminished throughout, not taking deep breaths Cardio: RRR, normal S1, S2, No OSCAR GI: S/NT/ND, NABS Psych: Ox3, appropriate affect and cognition Skin: Right great toe ulceration with exposed bone Data Review Bun/Creat/Cl/CO2/Glucose: --/0.85/--/--/-- (05/10 28) Lab Results Component Value Date ALT 180 (H) 05/09/2025 AST 125 (H) 05/09/2025 ALKPHOS 79 05/09/2025 BILITOTAL 0.7 05/09/2025 BILIDIRECT 0.1 05/09/2025 Signed, Rafaela Garcia MD Images from the original note were not included. Pulmonary/Critical Care Medicine Consult Progress Note Length of Stay: 0 days Interval History: Patient states that he feels that his chest has been tightening since he recived new IV abx. Continues to have some scant hemoptysis. Objective Findings: Physical Exam: Temp: [97.8 F (36.6 C)-98.6 F (37 C)] 97.9 F (36.6 C) Pulse (Heart Rate): [62-94] 85 Resp Rate: [15-28] 15 BP: (140-185)/(65-76) 166/74 O2 Sat (%): [92 %-96 %] 94 % GEN: well-appearing, NAD, normal weight. HEENT: normal conjunctivae. RESP: CTAB w/ good air movement, no w/r/r, breathing comfortably on RA. Some dried blood in yonker suction CV: RRR, normal S1 and S2, no r/g/m, no LE edema, no JVD. MSK: no deformity. SKIN: warm, dry. NEURO: alert, responds appropriately to questions, no gross motor deficit. Lab Data: Bun/Creat/Cl/CO2/Glucose: --/0.85/--/--/-- (05/10 28) I have personally reviewed and interpreted the following imaging studies with the pulmonary/critical care attending. Official reports included below: CT 05/06 Impression & Recommendations: Tristin Powell Sr. is a 85 y.o. male with CAD s/p stent x7, PAD s/p SFA-peroneal bypass, L foot amputation, chronic R foot ulcer, HTN, HLD, BPH who presented on 05/09/2025 from OSH for hemoptysis. Impression: Abnormal Chest CT, reported cavitary lesion Hemoptysis COPD Exacerbation Hemoptysis likely secondary to intrapulmonary pathology at OSH. Would benefit from obtaining the images and evaluation of abscess or cavitary lesion. Also previously on ASA and xarelto outpatient likely oozing from erosion of lung parenchyma. Was receiving TXA nebs outpatient but continues to have hemoptysis at this time with a productive cough. Recommendations: Please place specimen cup bedside to quantify hemoptysis Prednisone 40mg for 4 days, 30mg for 4 days, 20mg for 4 days, then 10mg for 4 days TXA nebs BID Daily Hg trend If patient starts to have large volume hemoptysis, please obtain STAT CTA chest with IR consult for embolization eval Please hold Staff: Connie Thank you for this consult. All recommendations are preliminary until cosigned by the attending. Obdulio Chapa MD PGY-4, Pulmonary and Critical Care Medicine Cosigned by BOLA Caceres [facility] at 05/10/2025 1:05 PM EDT Associated attestation - Carmel Rosales MB [facility] - 05/10/2025 1:05 PM EDT Pulmonary Attending Attestation: I have personally seen and evaluated Mr. Powell and reviewed Dr. Chapa's note. I agree with findings and plan. I have personally completed the following: reviewed the lab and culture data, rounded with the consult team, seen and examined the patient and reviewed the available imaging data. Additional details as outlined by the consult team. Thank you for the opportunity to participate in Mr. Powell's care. Carmel Rosales MD, [facility] [place] [facility], [facility] Chimney Supervisor [employer] Pulmonary and Critical Care Pager #[phone] Attending Physician 05/10/2025 1:05 PM Department of Pharmacy Admission Medication Reconciliation Note Patient: Tristin Powell Room/Bed: [facility]/A I have reviewed the patient's home medication list with the following sources Patient recall with prompting, Patient recall without prompting, Dispense Report, and Pharmacy (Name [facility] ). I have also reviewed this list with the pharmacist. I am recommending the following changes to the home medication list. These recommendations are considered preliminary until attestation of this note by a pharmacist. Added to Home Medications: Albuterol 108 Mcg/Act Amoxicillin-Clavulanate 500/125 Mg Azelastine 0.1% Solution nasal spray Fluticasone 50 Mcg/Act Furosemide 20 Mg Sulfamethoxazole-Trimethoprim 400/80 Mg Polyethylene Glycol 17 g Pack Deleted from Home Medications: Acetaminophen 325 Mg - Patient reported not taking this Medication. Polyethylene Glycol PO Pack - Re[employer] Therapeutic Multivitamin-minerals tablet - Patient reported not taking this Medication. Edits to Home Medications: Azelastine 0.1% - Patient reported taking this Medication differently than prescribed, Take 1 spray nasally daily as needed. Fluticasone 50 Mcg/Act - Patient reported taking this Medication differently than prescribed, Take 1 spray nasally daily as needed. Furosemide 20 Mg - Patient reported taking this Medication differently, Take 1 tablet daily as needed. Losartan 50 Mg - Updated instructions to as Prescribed, Take 1 tablet daily; Previously stated, Take 0.5 Tablet daily. Patient reported taking differently, Take 1 tablet daily as Needed. Omeprazole 20 Mg - Patient reported taking this Medication differently, Take 1 tablet daily as needed. Rivaroxaban 2.5 Mg - Updated Dosage/Strength to as Prescribed, Rivaroxaban 2.5 Mg; Previously stated, Rivaroxaban 20 Mg Updated Instructions, Take 2.5 Mg 2 times daily; Previously stated, Take 2.5 Mg 2 times daily start in 22 days after the 15 Mg dose is completed. Tamsulosin 0.4 Mg - Patient reported taking this Medication differently, Take 1 tablet twice daily. Zolpidem 10 Mg - Updated Dosage/Strength to as Prescribed, Zolpidem 10 Mg; Previously stated, Zolpidem 5 Mg. Updated Instructions to as Prescribed, Take 10 Mg at bedtime as needed; Previously stated, Take 5 Mg at bedtime as needed. Other Comments: The patient's allergies have been reviewed with Patient. Albuterol 0.083% inhalation solution - Patient reported taking this Medication; External Pharmacy reported no fill history of this Medication. Amoxicillin-Clavulanate 500/125 Mg - Patient reported that he stopped this Medication 12 days ago due to not being able to urinate; Last dispensed: 04/16/2025 #60 for 30 Days Losartan 50 Mg - Patient reported only taking this Medication when he feels that his blood pressure is too high. Sulfamethoxazole-Trimethoprim 400/80 Mg - Patient reported that he stopped this Medication 12 days ago due to not being able to urinate; Last dispensed: 04/16/2025 #60 for 30 Days Please feel free to contact me with any further questions. Name: Dexter Espinoza Phone #: [phone] Date/Time: 05/09/2025 1:05 PM Time Spent: 45 minutes Cosigned by Sirena Carpenter RPH at 05/09/2025 1:45 PM EDT Associated attestation - Sirena Carpenter RPH - 05/09/2025 1:45 PM EDT Department of Pharmacy Admission Medication Reconciliation Note Patient: Tristin Powell Room/Bed: [facility]/A Updated [employer]ER Med List: Prior to Admission Medications Prescriptions ASPIRIN 81 PO Sig: Take 81 mg by mouth. Albuterol 108 (90 Base) MCG/ACT Aero Soln inhaler Sig: Inhale 1 puff every 4 hours as needed for Shortness of Breath. Amoxicillin-clavulanate 500-125 MG tablet Sig: Take 1 tablet by mouth every 12 hours. Patient not taking: Reported on 05/09/2025 Note (05/09/2025): Patient reported that he stopped this Medication 12 days ago due to not being able to urinate Metoprolol 50 MG tab regular release Sig: Take 1 tablet by mouth 2 times daily. Polyethylene glycol 17 g Pack packet Sig: Take 1 packet by mouth daily. Sulfamethoxazole-trimethoprim 400-80 MG per tablet Sig: Take 1 tablet by mouth 2 times daily. Note (05/09/2025): Patient reported that he stopped this Medication 12 days ago due to not being able to urinate Tamsulosin HCl 0.4 MG capsule Sig: Take 1 capsule by mouth 2 times daily. albuterol (2.5 MG/3ML) 0.083% inhalation solution Sig: albuterol sulfate 2.5 mg/3 mL (0.083 %) solution for nebulization Note (05/09/2025): Patient reported taking this Medication; External Pharmacy reported no fill history of this Medication. atorvastatin 80 MG tablet Sig: Take 1 tablet by mouth daily. azelastine 0.1 % Solution nasal spray Si spray by Nasal route 2 times daily. Use in each nostril as directed Patient taking differently: 1 spray by Nasal route daily as needed. Use in each nostril as directed collagenase (Santyl) 250 UNIT/GM Ointment Sig: Apply 1 Application topically daily. To foot wound fluticasone 50 MCG/ACT Suspension nasal spray Si spray by Nasal route daily. Patient taking differently: 1 spray by Nasal route daily as needed. furOSEmide 20 MG tablet Sig: Take 1 tablet by mouth daily. Patient taking differently: Take 1 tablet by mouth daily as needed. losartan 50 MG tablet Sig: Take 1 tablet by mouth daily. nitroGLYCERIN 0.4 MG tablet SL Sig: Place 1 tablet under tongue every 5 minutes as needed for Chest pain. max = 3 doses. If CP persists after 1st dose, call 911 omepraz[address] capsule Sig: Take 1 capsule by mouth daily. Patient taking differently: Take 1 capsule by mouth daily as needed. oxyCODONE-acetaminophen 5-325 MG per tablet Sig: Take 1 tablet by mouth every 6 hours as needed for Severe Pain. rivaroxaban 2.5 MG tablet Sig: Take 1 tablet by mouth 2 times daily. zolpidem 10 MG tablet Sig: Take 1 tablet by mouth At bedtime as needed for Sleep. Facility-Administered Medications: None I have reviewed the home medication list with the Portrait Photographer. The home medication list status is: complete and home med list marked as reviewed . All changes to the home medication list have been updated in IHIS. Please feel free to contact me with any further questions. Name: Sirena Carpenter [facility] Phone #: [phone] Date/Time: 05/09/2025 1:44 PM Hospital Medicine Progress Note Patient: Tristin Powell ., : 1940, Impression / Plan Acute bronchitis 2/2 rhinovirus CAP - strep pneumo and pseudomonas Lung abscess vs infected bullae Hemoptysis, non massive CT chest on 05/04 showing bilateral patchy infiltrates, 10 cm air-fluid collection LLL c/f infected bullae vs abscess. - seems to be improving. Will make sure imaging is over here for review. Unclear exact start date of antibiotics. Will have ID assist - Consult pulmonary for their take on hemoptysis - Breathing treatments q6h - Add codeine to robitussin - hold on further TXA unless recommended by pulm. He needs to resume Xarelto/aspirin vs. Heparin gtt KAJAL due to his recent revascularization - hemoglobin stable currently. History of left upper lobe nodule - will see if this is still present on latest CT chest. Given age, c/f underlying malignancy Transaminitis - RUQ US ordered - chronic hep battery ordered COPD exacerbation (resolved) No wheezing and good air movement on exam. Has completed prolonged course of prednisone, close to 14 days. - breathing treatments as above Acute hypoxic resp failure - resolved At [facility] [place] requiring o2. 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 Quality Self-Check Complexity. . Obesity, class I Body mass index is 30.81 kg/m . - Follow with PCP for dietary and lifestyle modifications. Wound Documentation Wound Vascular Ulcer Arterial 05/09/25 0941 Anterior;Right Foot (Active) Date First Assessed/Time First Assessed: 05/09/25 0941 Primary Wound Type: Vascular Ulcer Secondary Wound Type - Vascular Ulcer: Arterial Present on Original Admission: Yes Wound Location Orientation: Anterior;Right Location: Foot Any conditions listed below are present on admission unless otherwise specified. . DVT prophylaxis with SCD's given bleeding Anticipated Disposition: home Code status is Full Code Interval History / Subjective Feeling ok. Says he's had bleeding issues for over 2 weeks now. Feels that what is in the tube is a lot. Stays it only seems to occur when he really gets to coughing a lot. Does not feel like what he's using for cough is sufficient. 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 Says he has COPD. Denies any chest pain. Has a history of DAYANNA lung nodule. Objective Temp: [97.8 F (36.6 C)-98.3 F (36.8 C)] 97.8 F (36.6 C) Pulse (Heart Rate): [62-98] 62 Resp Rate: [16-20] 16 BP: (152-186)/(69-86) 152/69 O2 Sat (%): [94 %-99 %] 94 % Weight: [108.9 kg (240 lb)] 108.9 kg (240 lb) Physical Exam Gen: A, A, NAD, sitting straight up in bed ENT: MMM Resp: CTA bilat, diminished throughout, not taking deep breaths Cardio: RRR, normal S1, S2, No OSCAR GI: S/NT/ND, NABS Psych: Ox3, appropriate affect and cognition Skin: Right great toe ulceration with exposed bone Data Review WBC/Hgb/Hct/Plts: 6.41/10.9/33.0/232 (05/09 0337) Na/K+/Phos/Mg/Ca: 139/4.2/3.2/2.0/9.1 (05/09 337) Bun/Creat/Cl/CO2/Glucose: 25/0.92/107/22/100 (05/09 337) Ptt/Pt/Inr: 23.6/14.4/1.1 (05/09 337) Lab Results Component Value Date ALT 180 (H) 05/09/2025 AST 125 (H) 05/09/2025 ALKPHOS 79 05/09/2025 BILITOTAL 0.7 05/09/2025 BILIDIRECT 0.1 05/09/2025 Signed, Rafaela Garcia MD Discharge Planning Assessment Is the patient able to participate in the assessment?: Yes Care Management Plan Anticipate patient will discharge home when medically ready. Patient denies needs/concerns from CM at this time. Patient reports that he had HHC a few weeks ago but no HHC services currently at home. Initial Discharge Planning Expected Discharge Disposition: Home Transportation Available for Discharge: Family or Friend Patient Assessment Completed: Initial Legal Next of Kin Does the patient have a Guardian?: No Spouse: No Adult Child(jaz), List All Adult Children: Yes Name and Contact information: Michael Marshall ([facility]) [phone] Would you like to add additional adult children?: Yes Name and Contact information: Amina Barr Name and Contact information: Richard Powell Advanced Care Planning Has the patient completed Advance Directives?: Completed, Available in Medical Record Reviewed for accuracy with patient?: Yes Advanced Directives on File: HealthCare Power of Real Estate Analyst Medication Management Does the patient have prescription insurance coverage? : Yes Is the patient on Anticoagulation? : Yes- xarelto [facility] [id number] [place] [address] - [address] [facility] [address] [id number] Living Environment and Support System Is the patient from a facility or care home?: No Living Environment: House Patient Caregiving Responsibilities: Self Patient-identified caregiver/support network: Family Who does the patient identify as a teachable caregiver(s)?: Sibling(s), Child(jaz) - Independent Services Does the patient use a home health or hospice agency?: No Current with dialysis?: No Does the patient use any community programs or services?: No Does patient use DME? : none (patient reports he has all DME (walker, canes, wheelchair) if needed) Does the patient use oxygen?: No Anticipated Changes Related to Illness/Injury? : No Initial ADLs Prior to Arrival What is the patient's reported baseline physical functioning prior to this acute illness?: independent What is the patient's reported baseline cognitive functioning prior to this acute illness?: independent Is the patient's baseline functioning changed by this acute illness? : No Concerns with patient being able to care for themselves at home? : No Alejandra Grey (Teresa), BEFORE SCHOOL BABYSITTER, CCM Clinical Allergist/Immunologist Physician \ Acute Occupational Therapy Evaluation Prior Gross Functional Mobility: independent Current AM-PAC score(s): CURRENT AM-PAC Mobility Raw Score: 18 CURRENT AM-PAC Activity Raw Score: 19 Based on the above AM-PAC score(s) and OT clinical judgment, discharge destination recommendation is: Home with Home Health Barriers to discharge home: Patient needs assistance with functional mobility, Patient needs assistance with IADLs (see note below), Patient needs assistance with ADLs Mobility equipment available at home: front-wheeled walker, rollator, straight cane ADL equipment available at home: elevated toilet seat, shower chair Equipment recommendations for discharge: to be determined Current therapy frequency recommendation(s) in acute: 4 times a week Activity Recommendations for outside of rehab session: x1 assist to bathroom/chair with gait belt Precautions and Weightbearing Status: OT Existing Precautions/Restrictions: fall Lines/Tubes/Drains (Rehab Status): No critical lines at this time Patient Safety Communication Prior to Visit: Nursing Current brace/orthoses: Post-op shoe Current brace/orthoses wear schedule: When out of bed (Provided by PT for safety of R great toe during ambulation) Subjective: Pt received supine in bed with HOB elevated. Pt has been coughing up bloody secretions, and reports worsening cough when he moves. Pain: General Pain Documentation (Adult, OB, Peds) Presence of Pain: reports pain/discomfort Pain Location: foot, left DVPRS (Defense and Veterans Pain Rating Scale) DVPRS: Rest: 7- severe pain DVPRS: Activity: 7- severe pain Home Setting Residence: House Lives With: sibling(s) (brother) Patient receives help from : (brother able to assist as needed) Patient reported support for discharge plannin hour supervision First floor setup: bedroom, tub shower, grab bars Number of stairs to enter home: 1 (also has a ramp if needed) Number of stairs in home: 0 Stair Railings at Home: entry - no rail Mobility Equipment Available: front-wheeled walker, rollator, straight cane ADL Equipment Available: elevated toilet seat, shower chair Home Environment Details: Single story home Previous Level of Function Gross Functional Mobility: independent Assistive Device: none used Prior level ADL Overview: Independent with all ADLs Dominant Hand: Right Bed Mobility: independent Transfers: independent Stairs: independent Ambulation: independent with all needs Prior Level of Function Details: Independent baseline. 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 Likes to go fishing. Denies recent falls. IADL History IADLs: independent Primary Language: Malian Objective/Observation: Vitals/Vitals Responses to Treatment: Vital signs stable while monitored during session. No adverse response or symptoms. O2 Device: room air Vision Screen Currently wearing corrective lenses: No Visual Impairments Observed?: No Speech Speech: no gross deficits noted Successful Methods (Communication Strategies): verbal speech Hearing Hearing: no gross deficits noted Cognition Overall Cognitive Status: (at risk) Arousal/Alertness: Appropriate responses to stimuli Orientation Level: Oriented X4 Following Commands: Follows one step commands with repetition, Follows one step commands with increased time Safety Judgment: Decreased awareness of need for assistance, Decreased awareness of need for safety Awareness of Errors: Assistance required to identify errors made, Assistance required to correct errors made Deficits: Decreased awareness of deficits Attention Span: Attends with cues to redirect Memory: Appears intact Problem Solving: Assistance required to identify errors made, Assistance required to generate solutions Cognition Comments: Impulsive throughout. Requires cues for safety and redirection to task. Decreased insight into deficits and assistance needed. ADLs: ADL Assessment: Assessed All ADLs, LE Dressing Deficit ADL Anticipated Performance (ADLs not directly observed this session): Eating, Bathing, Grooming, UE Dressing, Toileting ADL Comments: Functional levels based on clinical judgement and performance in other areas Eating Assistance: Independent Grooming Assistance: Contact guard assist Grooming Location: standing at sink Grooming Intervention/Details: Pt declined completing hygiene/grooming tasks on eval. Requested setup of materials at bedside to complete oral hygiene later on during the day. Provided with toothbrush, toothpaste, cup, basin, and comb. Bathing Assistance: Stand by Bathing Location: seated on shower chair UE Dressing Assistance: Stand by UE Dressing Location: edge of bed LE Dressing Assistance: Moderate LE Dressing Location: edge of bed LE Dressing Deficit: Don/doff R shoe, Activity tolerance, Increased time to complete LE Dressing Skilled Rationale (Verbal/Tactile/Visual/Demonstra tion): Setup, Supervision, Technique of activity LE Dressing Intervention/Details: Pt dons soft boot (with non-slip motor runner) on L foot for mobility despite education to utilize more stable footwear. Education provided on how to don R post-op shoe for great toe protection. Pt required assistance with donning new shoe. Toilet Assistance: Stand by Toileting Location: toilet Extremity Assessments: RUE Assessment RUE Assessment: Within Functional Limits Right UE Assessment Details: functionally assessed LUE Assessment LUE Assessment: Within Functional Limits Left UE Assessment Details: functionally assessed Balance: Sitting Balance Static Sitting-Level of Assistance: Supervision Dynamic Sitting-Level of Assistance: Standby Skilled Rationale: Verbal cues, Positioning Sitting Balance Skilled Intervention/Details: No overt LOB while seated EOB Standing Balance Static Standing-Level of Assistance: Contact guard Dynamic Standing-Level of Assistance: Contact guard Standing-Balance Support: Gait belt, No upper extremity support Skilled Rationale: Verbal cues, Positioning, Cues for increased safety, Full extension to upright positioning/posture Standing Balance Skilled Intervention/Details: Balance challenged at EOB with cues for line management/safety throughout. Pt is impulsive thorughout and requires cues for general safety. No overt LOB but demonstrates wide base of support and flexed posture. Neuro: Proprioception Proprioception: intact Gross Coordination Gross Coordination: bilat UE intact Fine Motor Coordination Additional Documentation: Yes Fine Motor Coordination Left Hand, Manipulation of Objects: normal performance Right Hand, Manipulation of Objects: normal performance Mobility Assessment: Supine to Sit Mobility Wells Level: Supine->Sit: contact guard assist Bed Features/Set-up: Supine->Sit: Head of bed elevated, Use of bed rail Skilled Rationale: Positioning, Verbal cues, Initiation and execution of task Skilled Intervention/Details: Supine->Sit: x1 to EOB with increased time Sit to Supine Mobility Wells Level: Sit->Supine: stand-by assist Bed Features/Set-up: Sit->Supine: Head of bed elevated Skilled Rationale: Verbal cues, Initiation and execution of task Skilled Intervention/Details: Sit->Supine: x1 from EOB Transfer Assessment: Sit to Stand Transfer Wells Level: Sit->Stand: contact guard assist Assistive Device: Sit->Stand: gait belt Skilled Rationale: Verbal cues, Initiation and execution of task, Cues for increased safety Skilled Intervention/Details: Sit->Stand: x1 from EOB impulsively and requires cues for line management/safety Stand to Sit Transfer Wells Level: Stand->Sit: contact guard assist Assistive Device: Stand->Sit: gait belt Skilled Rationale: Verbal cues, Controlled descent for sitting, Technique of activity, Positioning Skilled Intervention/Details: Stand->Sit: x1 to EOB with cues for positioning Functional Mobility: Functional Mobility Wells Level: Functional Mobility/Gait: contact guard assist Assistive Device: Functional Mobility/Gait: gait belt Functional Mobility Distance: Distance needed to access restroom Functional Mobility Deficits: Activity tolerance, Balance, Generalized weakness, Pain Functional Mobility Skilled Rationale: Cues for increased safety, Facilitate postural control, Verbal cues Skilled Intervention/Details - Functional Mobility/Gait: Facilitated short distance functional mobility in the room without UE support. Pt has no LOB but demonstrates wide base of support, slower pace, and postural sway. He requires frequent cues for safety and line management. Pt would benefit from use of assistive device for increased stability. Self-directed distance due to not wanting to exacerbate cough. Wheelchair Assessment Patient currently uses wheelchair?: No Outcome Score(s): CURRENT [facility] Daily Activity Inpatient Short Form Putting on/Taking Off Lower Body Clothin - A Little Assistance Bathin - A Little Assistance Toiletin - A Little Assistance Putting on/Taking Off Upper Body Clothin - A Little Assistance Groomin - A Little Assistance Eatin - No Assistance CURRENT [facility] Activity Raw Score: 19 CURRENT [facility] Activity Functional Limitation/Modifier: 42.80% Currently Impaired in Daily Activity - CK CURRENT [facility] Basic Mobility Inpatient Short Form Turning over in bed: 3 - A Little Assistance Moving from lying on back to sittin - A Little Assistance Moving to and from bed to chair: 3 - A Little Assistance Sitting/standing from chair: 3 - A Little Assistance Walk in hospital room: 3 - A Little Assistance Climbing 3-5 steps with a railin - A Little Assistance CURRENT [facility] Mobility Raw Score: 18 CURRENT [facility] Mobility Functional Limitation: 46.58% Impaired in Basic Mobility Assessment & Plan: Patient was admitted for hemoptysis and seen for therapy evaluation related to ADL assessment and discharge recommendations. Exam findings include impairments in: balance, attention, endurance, pain with movement, pain, strength, transfers (safety). These impairments contribute to occupational performance limitations including bathing, dressing, toileting, functional mobility, home management tasks, grooming, ADL transfers. The following factors impact the plan of care: Past Medical History[1] Past Surgical History[2] Patient will benefit from skilled occupational therapy to address these impairments, occupational performance limitations, and participation restrictions. Patient's rehab potential is: good. Planned Therapy Interventions (OT Eval): ADL retraining, balance training, functional activity tolerance, neuromuscular re-education, ROM (range of motion), strengthening, transfer training Patient Instruction/Education this session: Learners: Patient Education provided: Activity outside of therapy, Plan of care, Safety, Role of this discipline Teaching method: Verbal Education/Instruction Learner response: Applies knowledge Learning preferences: Auditory, Visual Learning considerations: No barriers/ready to learn Plan for next session: standing ADLs, dynamic balance Acute OT Goals Plan of Care by Deena Jacobs OT at 05/09/2025 8:37 AM Version 1 of 1 Problem: OT - ADLs Goal: Lower Body Dressing - Patient will complete lower body dressing tasks with independence using adaptive equipment/compensatory strategies as needed for improved ability to complete self-care activities. Outcome: Ongoing Goal: Grooming - Patient will complete grooming in standing with independence for improved ability to safely complete ADLs. Outcome: Ongoing Goal: Toileting - Patient will complete toileting task with independence and adaptive equipment as needed for improved ability to safely complete self-care activities. Outcome: Ongoing Problem: OT - Transfers Goal: Transfers Toilet/ Bedside Commode - Patient will transfer to/from toilet/bedside commode with independence for improved ability to safely complete ADLs. Outcome: Ongoing Problem: OT - Balance Goal: Balance - Standing - Patient will perform 10 minutes of functional task in standing with modified independence and good balance to promote safety and improved balance required for self-care activities. Outcome: Ongoing Problem: OT - Endurance Goal: Endurance Functional Mobility - Patient will complete distance needed for common household mobility and distance needed for limited community mobility with modified independence using LRAD for improved tolerance to safely complete I/ADL's Outcome: Ongoing Problem: OT - Cognition Goal: Safety - Patient will demonstrate good safety awareness during ADL routine with minimal cues for accuracy. Outcome: Ongoing OT treatment consisted of the following to work and progress towards the above goal(s): OT Evaluation and Treatment Time OT Evaluation (Moderate) Time Entry: 23 Evaluating Therapist: Deena Jacobs OT Additional Details: OT Co-Eval/Treatment Information Co-evaluation/co-treatment performed?: Yes, simultaneous billable skilled care was necessary due to medical complexity and functional deficits Other discipline: PT Rationale for need to co-eval/treat: postural control (safety with initial eval) OT Evaluation Complexity Occupational Profile and Client History: Moderate - expanded history Assessment of Occupational Performance: Moderate (3-5 performance deficits) Clinical Decision/Performance Deficits: Moderate (detailed assessments w/several treatment options) Time In: 08 Time Out: 0900 Total Visit Time: 23 minutes Total Treatment Time (skilled, billable minutes): 23 minutes PPE used during patient interaction: gloves Patient location at end of session: bed with head of bed elevated, lines intact, RN aware Alarms on at end of session: none altered, RN aware Needs in reach. Upon discontinuation of Acute Care Occupational Therapy Services or patient discharge from the hospital this note represents the current Occupational Therapy Discharge Summary. [1] Past Medical History: Diagnosis Date Arthritis CAD (coronary artery disease) 3 stents placed COPD (chronic obstructive pulmonary disease) Essential hypertension, benign GERD (gastroesophageal reflux disease) Hyperlipidemia Prostate cancer Vascular disease [2] Past Surgical History: Procedure Laterality Date ARTHROPLASTY [...] Laterality: N/A; Surgeon: Isaias Vogt MD; Location: [facility] C[facility] C[facility]/EP LAB CORONARY STENT PLACEMENT 2007 x3 total of 7 AMPUTATION front of left toes ANKLE FRACTURE SURGERY Left plate placed in L ankle CORONARY ARTERY BYPASS GRAFT 3 vessel RADIOGRAPHIC/SURGICAL IMPLANT INDEX jul 2010-november 2010 radioactive seeds implanted prostate Acute Physical Therapy Evaluation Prior Gross Functional Mobility: independent Current AM-PAC score(s): CURRENT AM-PAC Mobility Raw Score: 18 Based on the above AM-PAC score(s) and PT clinical judgment, patient is a good candidate for discharge to Home with Home Health Barriers to discharge home: Patient needs assistance with functional mobility Mobility equipment available at home: front-wheeled walker, rollator, straight cane ADL equipment available at home: elevated toilet seat, shower chair Equipment needed for discharge: none Current therapy frequency recommendation in acute: PT Therapy Frequency: 5 times a week Precautions and Weightbearing Status: Existing Precautions/Restrictions: fall Lines/Tubes/Drains (Rehab Status): No critical lines at this time Patient Safety Communication Prior to Visit: Nursing Current brace/orthoses: Post-op shoe Current brace/orthoses wear schedule: When out of bed (Provided for safety of R great toe during ambulation) Subjective: Pt semi-recumbent on arrival. Agreeable to PT evaluation with RN approval. Now coughing up bloody secretions. Pain: General Pain Documentation (Adult, OB, Peds) Presence of Pain: reports pain/discomfort Pain Location: foot, left DVPRS (Defense and Veterans Pain Rating Scale) DVPRS: Rest: 7- severe pain DVPRS: Activity: 7- severe pain Home Setting Residence: House Lives With: sibling(s) (brother) Patient receives help from : (brother able to assist as needed) Patient reported support for discharge plannin hour supervision First floor setup: bedroom, tub shower, grab bars Number of stairs to enter home: 1 (also has a ramp if needed) Number of stairs in home: 0 Stair Railings at Home: entry - no rail Mobility Equipment Available: front-wheeled walker, rollator, straight cane ADL Equipment Available: elevated toilet seat, shower chair Home Environment Details: Single story home Previous Level of Function Gross Functional Mobility: independent Assistive Device: none used Prior level ADL Overview: Independent with all ADLs Dominant Hand: Right Bed Mobility: independent Transfers: independent Stairs: independent Ambulation: independent with all needs Prior Level of Function Details: Independent baseline. 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 Likes to go fishing. Denies recent falls. Objective/Observation: Vitals/Vitals Responses to Treatment: WFL; no s/s of distress with activity. Pt declines pulse ox with mobility, but post-ambulation, >92% w/ no s/s of distress. O2 Device: room air Cognition Overall Cognitive Status: (At risk) Arousal/Alertness: Appropriate responses to stimuli Orientation Level: Oriented X4 Following Commands: Follows one step commands with repetition, Follows one step commands with increased time Safety Judgment: Decreased awareness of need for assistance, Decreased awareness of need for safety Awareness of Errors: Assistance required to identify errors made, Assistance required to correct errors made Deficits: Decreased awareness of deficits Attention Span: Attends with cues to redirect Memory: Appears intact Problem Solving: Assistance required to identify errors made, Assistance required to generate solutions Cognition Comments: Impulsive throughout and with limited insight into deficits and need for assistance/safety Vision Screen Currently wearing corrective lenses: No Visual Impairments Observed?: No Speech Speech: no gross deficits noted Successful Methods (Communication Strategies): verbal speech Hearing Hearing: no gross deficits noted Extremity Assessments: RLE Assessment RLE Assessment: AROM WFL Right LE Assessment Details: R great toe wound with OM LLE Assessment LLE Assessment: AROM WFL Left LE Assessment Details: Hx of transmet amputation Proprioception Proprioception: intact Mobility Assessment: Supine to Sit Mobility Wells Level: Supine->Sit: contact guard assist Bed Features/Set-up: Supine->Sit: Head of bed elevated, Use of bed rail Skilled Rationale: Verbal cues, Initiation and execution of task Skilled Intervention/Details: Supine->Sit: Increased time to complete Sit to Supine Mobility Wells Level: Sit->Supine: stand-by assist Bed Features/Set-up: Sit->Supine: Head of bed elevated Skilled Rationale: Verbal cues, Initiation and execution of task Balance: Sitting Balance Static Sitting-Level of Assistance: Supervision Dynamic Sitting-Level of Assistance: Standby Sitting Balance Skilled Intervention/Details: no LOB during unsupported sitting EOB Standing Balance Static Standing-Level of Assistance: Contact guard Dynamic Standing-Level of Assistance: Contact guard Standing-Balance Support: Gait belt, No upper extremity support Skilled Rationale: Verbal cues, Cues for increased safety Standing Balance Skilled Intervention/Details: Maximal cueing for line safety throughout w/ pt impulsively standing and ambulating within room Transfer Assessment: Sit to Stand Transfer Wells Level: Sit->Stand: contact guard assist Assistive Device: Sit->Stand: gait belt Skilled Rationale: Verbal cues, Initiation and execution of task Skilled Intervention/Details: Sit->Stand: Pt impulsively stands from EOB w/ repeat cueing for line safety Stand to Sit Transfer Wells Level: Stand->Sit: contact guard assist Assistive Device: Stand->Sit: gait belt Skilled Rationale: Sequencing, Verbal cues, Hand placement, Controlled descent for sitting, Technique of activity, Initiation and execution of task, Cues for increased safety Skilled Intervention/Details: Stand->Sit: X1 EOB Gait/Functional Mobility: Gait Assessment Wells Level: Gait: contact guard assist Assistive Device: Gait: gait belt Ambulation Distance (Feet): 25 Gait Deviations Identified: decreased pamela, decreased gait speed, decreased heel strike, decreased step length, antalgic, left, increased postural sway Gait Skilled Rationale: verbal Skilled Intervention/Details - Gait: Pt ambulates with slow, antalgic gait within room and flexed posture; mild unsteadiness and poor line safety throughout requiring cues for safety; will benefit from use of rollator in future sessions to improve gait speed and stability; declines further ambulation into hallway and within room 2/2 not wanting to excacerbate cough Wheelchair Assessment Patient currently uses wheelchair?: No Outcome Score(s): CURRENT [facility] Basic Mobility Inpatient Short Form Turning over in bed: 3 - A Little Assistance Moving from lying on back to sittin - A Little Assistance Moving to and from bed to chair: 3 - A Little Assistance Sitting/standing from chair: 3 - A Little Assistance Walk in hospital room: 3 - A Little Assistance Climbing 3-5 steps with a railin - A Little Assistance CURRENT [facility] Mobility Raw Score: 18 CURRENT [facility] Mobility Functional Limitation: 46.58% Impaired in Basic Mobility Assessment & Plan: Patient was admitted for 85 y.o. male with a past medical history of CAD x7 stents, PAD s/ SFA-peroneal bypass 02/2025, left metatarsal amputation, chronic R foot ulcer, HTN, HDL, BPH who presents as a transfer from [facility] due to hemoptysis. and seen for therapy evaluation related to above to evaluate for fall risk and to assist with discharge planning. Exam findings include impairments in: Strength, Balance, Pain, Posture, Transfers, Gait/Locomotion, Skin integrity, Aerobic capacity/endurance. These impairments contribute to functional limitations including Ambulation/locomotion pain, Decreased ambulation distance/endurance, Difficulty stair climbing/descent, Increased fall risk, Difficulty ambulating on uneven/dynamic surfaces, Difficulty with transfers. Current clinical presentation is Evolving - changing/inconsistent clinical characteristics (Moderate). Patient history factors impacting Plan Of Care include PMH. Patient will benefit from skilled physical therapy to address these impairments, functional limitations, and participation restrictions and has good rehab potential to achieve therapy goals. Planned Therapy Interventions: balance training, endurance, functional activity tolerance, gait training, neuromuscular re-education, postural re-education, strengthening, transfer training Patient Instruction/Education this session: Learners: Patient Education provided: Activity outside of therapy, Discharge recommendations, Role of this discipline, Safety Teaching method: Verbal Education/Instruction Learner response: States/Identifies/Teaches back Learning preferences: Auditory Learning considerations: (safety awareness) Plan for next session: Progress gait distance with rollator; stair training Acute PT Goals Plan of Care by Amairani Anaya PT at 05/09/2025 8:36 AM Version 1 of 1 Problem: PT - General Goals Goal: Supine <-> Sit Transfers - Patient will perform supine to/from sit transfers with independence and without use of hospital bed features in order to improve functional mobility and safety. Outcome: Ongoing Goal: Sit <-> Stand Transfers - Patient will perform sit to/from stand transfers with independence and least restrictive device in order to improve functional mobility and safety. Outcome: Ongoing Goal: Standing Endurance/Balance - Patient will perform standing balance tasks for 15 min with independence and least restrictive device while maintaining an RPE of less than 5/10 to improve endurance and safety with standing tasks. Outcome: Ongoing Goal: Ambulation - Patient will ambulate 200 feet with independence and least restrictive device to improve ability to safely navigate home and community. Outcome: Ongoing Goal: Stairs - Patient will ascend/descend 1 stairs with independence, least restrictive device, and single railing(s) to improve ability to safely navigate home and community. Outcome: Ongoing Goal: Strength - Patient will demonstrate understanding of exercise program. Outcome: Ongoing PT treatment consisted of the following to progress towards the above goal(s): PT Evaluation and Treatment Time PT Evaluation (Moderate) Time Entry: 24 Evaluating Therapist: Amairani Anaya PT Additional Details: PT Co-Eval/Treatment Information Co-evaluation/co-treatment performed?: Yes, simultaneous billable skilled care was necessary due to medical complexity and functional deficits Other discipline: OT Rationale for need to co-eval/treat: postural control Evaluation Complexity Components History: High (3 personal factors and/or comorbidities) Body Systems Review: Moderate (Addressing a total of 3 or more elements) Clinical Presentation: Evolving - changing/inconsistent clinical characteristics (Moderate) Clinical Decision Making Complexity: Moderate Time In: 08 Time Out: 0900 Total Visit Time: 24 minutes Total Treatment Time (skilled, billable minutes): 24 minutes PPE used during patient interaction: gloves Patient location at end of session: bed with head of bed elevated, lines intact Alarms on at end of session: bed alarm, RN aware Needs in reach. Upon discontinuation of Acute Care Physical Therapy Services or patient discharge from the hospital this note represents the current Physical Therapy Discharge Summary. documented in this encounter [facility] 05-13-2025 Miscellaneous Notes Problem: PT - General Goals Goal: Sit <-> Stand Transfers - Patient will perform sit to/from stand transfers with independence and least restrictive device in order to improve functional mobility and safety. Outcome: Progressing Goal: Ambulation - Patient will ambulate 200 feet with independence and least restrictive device to improve ability to safely navigate home and community. Outcome: Ongoing Goal: Stairs - Patient will ascend/descend 1 stairs with independence, least restrictive device, and single railing(s) to improve ability to safely navigate home and community. Outcome: Progressing Cosigned by Maggy Almaraz PT at 05/13/2025 3:15 PM EDT Problem: PT - General Goals Goal: Supine <-> Sit Transfers - Patient will perform supine to/from sit transfers with independence and without use of hospital bed features in order to improve functional mobility and safety. Outcome: Progressing Goal: Sit <-> Stand Transfers - Patient will perform sit to/from stand transfers with independence and least restrictive device in order to improve functional mobility and safety. Outcome: Progressing Goal: Standing Endurance/Balance - Patient will perform standing balance tasks for 15 min with independence and least restrictive device while maintaining an RPE of less than 5/10 to improve endurance and safety with standing tasks. Outcome: Progressing Goal: Ambulation - Patient will ambulate 200 feet with independence and least restrictive device to improve ability to safely navigate home and community. Outcome: Progressing Goal: Strength - Patient will demonstrate understanding of exercise program. Outcome: Progressing Cosigned by Oscar Gann PT at 05/12/2025 1:40 PM EDT Problem: Swallowing Impairment Goal: Optimal Eating/Swallowing without Aspiration Outcome: Progressing Problem: Adult Inpatient Plan of Care Goal: Plan of Care Review Outcome: Progressing Goal: Patient-Specific Goal (Individualized) Outcome: Progressing Goal: Absence of Hospital-Acquired Illness or Injury Outcome: Progressing Goal: Optimal Comfort and Wellbeing Outcome: Progressing Goal: Readiness for Transition of Care Outcome: Progressing Problem: Wound Goal: Optimal Coping Outcome: Progressing Goal: Optimal Functional Ability Outcome: Progressing Goal: Absence of Infection Signs and Symptoms Outcome: Progressing Goal: Improved Oral Intake Outcome: Progressing Goal: Optimal Pain Control and Function Outcome: Progressing Goal: Skin Health and Integrity Outcome: Progressing Goal: Optimal Wound Healing Outcome: Progressing Problem: Breathing Pattern Ineffective Goal: Effective Breathing Pattern Outcome: Progressing 2038: MD Nixon notified of patient complaining of chest tightness and shortness of breath. Patient stated it is due to the cefepime that was infusing. Cefepime paused. VSS. Per chart, pt was complaining of chest tightness 05/10 when receiving cefepime as well. 2133: Pt refusing to restart cefepime. States his discomfort goes away when it is not infusing. MD Nixon aware. Problem: Swallowing Impairment Goal: Optimal Eating/Swallowing without Aspiration Outcome: Progressing Problem: Adult Inpatient Plan of Care Goal: Plan of Care Review Outcome: Progressing Goal: Patient-Specific Goal (Individualized) Outcome: Progressing Problem: Breathing Pattern Ineffective Goal: Effective Breathing Pattern Outcome: Progressing Problem: Wound Goal: Optimal Wound Healing Outcome: Progressing Problem: Wound Goal: Optimal Coping Outcome: Progressing Problem: Infection Goal: Absence of Infection Signs and Symptoms Outcome: Progressing Problem: Adult Inpatient Plan of Care Goal: Plan of Care Review Outcome: Progressing Problem: Swallowing Impairment Goal: Optimal Eating/Swallowing without Aspiration Outcome: Progressing Problem: Adult Inpatient Plan of Care Goal: Plan of Care Review Outcome: Progressing Goal: Patient-Specific Goal (Individualized) Outcome: Progressing Goal: Absence of Hospital-Acquired Illness or Injury Outcome: Progressing Goal: Optimal Comfort and Wellbeing Outcome: Progressing Goal: Readiness for Transition of Care Outcome: Progressing Problem: PT - General Goals Goal: Supine <-> Sit Transfers - Patient will perform supine to/from sit transfers with independence and without use of hospital bed features in order to improve functional mobility and safety. Outcome: Progressing Goal: Sit <-> Stand Transfers - Patient will perform sit to/from stand transfers with independence and least restrictive device in order to improve functional mobility and safety. Outcome: Progressing Goal: Standing Endurance/Balance - Patient will perform standing balance tasks for 15 min with independence and least restrictive device while maintaining an RPE of less than 5/10 to improve endurance and safety with standing tasks. Outcome: Progressing Goal: Ambulation - Patient will ambulate 200 feet with independence and least restrictive device to improve ability to safely navigate home and community. Outcome: Progressing Goal: Stairs - Patient will ascend/descend 1 stairs with independence, least restrictive device, and single railing(s) to improve ability to safely navigate home and community. Outcome: Progressing Goal: Strength - Patient will demonstrate understanding of exercise program. Outcome: Progressing Problem: OT - ADLs Goal: Lower Body Dressing - Patient will complete lower body dressing tasks with independence using adaptive equipment/compensatory strategies as needed for improved ability to complete self-care activities. Outcome: Progressing Goal: Grooming - Patient will complete grooming in standing with independence for improved ability to safely complete ADLs. Outcome: Progressing Goal: Toileting - Patient will complete toileting task with independence and adaptive equipment as needed for improved ability to safely complete self-care activities. Outcome: Progressing Problem: OT - Transfers Goal: Transfers Toilet/ Bedside Commode - Patient will transfer to/from toilet/bedside commode with independence for improved ability to safely complete ADLs. Outcome: Progressing Problem: OT - Balance Goal: Balance - Standing - Patient will perform 10 minutes of functional task in standing with modified independence and good balance to promote safety and improved balance required for self-care activities. Outcome: Progressing Problem: OT - Endurance Goal: Endurance Functional Mobility - Patient will complete distance needed for common household mobility and distance needed for limited community mobility with modified independence using LRAD for improved tolerance to safely complete I/ADL's Outcome: Progressing Problem: OT - Cognition Goal: Safety - Patient will demonstrate good safety awareness during ADL routine with minimal cues for accuracy. Outcome: Progressing Problem: Adult Inpatient Plan of Care Goal: Patient-Specific Goal (Individualized) Outcome: Progressing Problem: Adult Inpatient Plan of Care Goal: Patient-Specific Goal (Individualized) Outcome: Progressing Patient came with packet of OSH records, which have already been sent on to medical records, and scanned into media tab, , culture results are on page 19, updated ID OSH disc imaging uploaded by hospitalist Dr radha Fletcher and ID updated Meet Garcia Hospitalist Van [id number] Images from the original note were not included. 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 Patient visited at bedside and is agreeable to skin assessment. Patient is current with a Podiatric provider where he lives. Recent MRI outpatient with noted osteomyelitis. Patient states that he believes they had recommended amputation of the distal phalanx. Description of wound: Existing dressings removed and skin cleansed with Vashe wound cleanser and pat dry. There is exposed bone that is dry, desiccated, surrounded by adherent yellow/ramesh slough. Patient states that he has been using Santyl at home though given presence of exposed bone would recommend stopping Santyl at this time. Thick calloused skin noted to periwound surface. Faint pink erythema to dorsal toe. HydroFera Ready Blue foam was cut to size and placed over wound surface then secured with Allevyn Life bordered foam. Recommend daily dressing change per nursing staff. Patient with planned follow-up with Podiatry next (per patient). May benefit from Podiatry evaluation whilst admitted. Next the bilateral buttocks were examined. Mirrored blanchable erythema with signs of linear shearing force. Patient states area is sore. Has not been out of bed as much as [he] normally is. Recommend barrier ointment twice daily. Recommendation: Recommend continuing pressure reduction techniques including frequent repositioning, minimizing elevation of the head of the bed, and encouraging patient to be out of bed as much as possible (use pressure reducing wheelchair cushion when sitting in chair). Apply TruVue boots or float heels on pillows bilaterally while in bed for pressure offloading protection. Optimize nutrition to improve skin and wound outcomes. Increase protein intake as tolerated. Consider supplemental zinc, vitamin C (or multivitamin) to promote wound healing. Patient currently on BELA AP support surface. Recommend minimizing layers between patient and support surface to maximize drying microclimate created by support surface. HydroFera Ready Blue Foam dressing to right great toe once daily, secured with bordered foam dressing. Consider Podiatry consultation. Barrier ointment to bilateral buttocks twice daily. Bed Surface: BELA + APR Mattress Discharge Recommendations: Patient may continue care as described above at discharge. See image(s) below: Wilder Skin Assessment: Wilder Risk Assessment Sensory Perception: 4-->no impairment Moisture: 4-->rarely moist Activity: 3-->walks occasionally Mobility: 3-->slightly limited Nutrition: 3-->adequate Friction and Shear: 3-->no apparent problem Wilder Score: 20 Wilder Score: Wilder Score: 20 Body mass index is 30.81 kg/m . Total time spent in assessment and treatment of patient: 25 minutes spent providing patient care. LABS: Albumin Date Value Ref Range Status 05/09/2025 3.5 3.5 - 5.0 g/dL Final 06/17/2021 3.8 3.5 - 5.0 G/dl Final No results found for: PREALBUMIN Wound Documentation: 05/09/25940 Wound Vascular Ulcer Arterial 05/09/25940 Anterior;Right Foot Date First Assessed/Time First Assessed: 05/09/25940 Primary Wound Type: Vascular Ulcer Secondary Wound Type - Vascular Ulcer: Arterial Present on Original Admission: Yes Wound Location Orientation: Anterior;Right Location: Foot Wound Image Dressing Status Changed/New Closure None Assessment Dry;Bone;Yellow;Stable Eschar Edna-Wound Assessment Edema Non-staged Wound Description Full thickness Wound Length (cm) 2 cm Wound Width (cm) 2 cm Wound Surface Area (cm^2) 3.14 cm^2 Wound Depth (cm) 1.5 cm Wound Volume (cm^3) 3.142 cm^3 State of Healing No change Drainage Amount None Percentage Non-Viable Tissue non-viable greater than 75% Treatment Applied wound cleanser, cleansed with Offloading cushion;heel floating with pillows;mattress $$ Dressing Applied hydrofera blue;foam Periwound Care Applied wound cleanser, cleansed with Date Dressing Changed 05/09/25 Plan Problem arterial;foot ulcer Current Plan (S) podiatry;Hydrofera Blue Visit Type Consult with RN Supportive Measures bed therapy;elevate extremitiy;position off wound;turn every 2 hours;optimize nutrition Discharge Plans outpatient wound care;home health Teaching Material Provided about your dressing change;wound care;wound cleaning WOCT Visit Frequency PRN Last Date Seen 05/09/25 RN notified of assessment and plan. Please page #[phone] or reconsult with any further needs. Problem: OT - ADLs Goal: Lower Body Dressing - Patient will complete lower body dressing tasks with independence using adaptive equipment/compensatory strategies as needed for improved ability to complete self-care activities. Outcome: Ongoing Goal: Grooming - Patient will complete grooming in standing with independence for improved ability to safely complete ADLs. Outcome: Ongoing Goal: Toileting - Patient will complete toileting task with independence and adaptive equipment as needed for improved ability to safely complete self-care activities. Outcome: Ongoing Problem: OT - Transfers Goal: Transfers Toilet/ Bedside Commode - Patient will transfer to/from toilet/bedside commode with independence for improved ability to safely complete ADLs. Outcome: Ongoing Problem: OT - Balance Goal: Balance - Standing - Patient will perform 10 minutes of functional task in standing with modified independence and good balance to promote safety and improved balance required for self-care activities. Outcome: Ongoing Problem: OT - Endurance Goal: Endurance Functional Mobility - Patient will complete distance needed for common household mobility and distance needed for limited community mobility with modified independence using LRAD for improved tolerance to safely complete I/ADL's Outcome: Ongoing Problem: OT - Cognition Goal: Safety - Patient will demonstrate good safety awareness during ADL routine with minimal cues for accuracy. Outcome: Ongoing Problem: PT - General Goals Goal: Supine <-> Sit Transfers - Patient will perform supine to/from sit transfers with independence and without use of hospital bed features in order to improve functional mobility and safety. Outcome: Ongoing Goal: Sit <-> Stand Transfers - Patient will perform sit to/from stand transfers with independence and least restrictive device in order to improve functional mobility and safety. Outcome: Ongoing Goal: Standing Endurance/Balance - Patient will perform standing balance tasks for 15 min with independence and least restrictive device while maintaining an RPE of less than 5/10 to improve endurance and safety with standing tasks. Outcome: Ongoing Goal: Ambulation - Patient will ambulate 200 feet with independence and least restrictive device to improve ability to safely navigate home and community. Outcome: Ongoing Goal: Stairs - Patient will ascend/descend 1 stairs with independence, least restrictive device, and single railing(s) to improve ability to safely navigate home and community. Outcome: Ongoing Goal: Strength - Patient will demonstrate understanding of exercise program. Outcome: Ongoing On admission to [facility], from outside facility a dual RN initial assessment of skin condition was performed by Valentino Olivares RN and Manohar Tolliver RN Skin Assessment: Skin not within defined limits. - Wound(s) identified: Yes - Photo taken and uploaded into notes in [facility]: Yes LDA Added:No Valentino Olivares RN documented in this encounter [facility] 05-13-2025 Miscellaneous Notes Problem: PT - General Goals Goal: Sit <-> Stand Transfers - Patient will perform sit to/from stand transfers with independence and least restrictive device in order to improve functional mobility and safety. Outcome: Progressing Goal: Ambulation - Patient will ambulate 200 feet with independence and least restrictive device to improve ability to safely navigate home and community. Outcome: Ongoing Goal: Stairs - Patient will ascend/descend 1 stairs with independence, least restrictive device, and single railing(s) to improve ability to safely navigate home and community. Outcome: Progressing Cosigned by Maggy Almaraz PT at 05/13/2025 3:15 PM EDT Problem: PT - General Goals Goal: Supine <-> Sit Transfers - Patient will perform supine to/from sit transfers with independence and without use of hospital bed features in order to improve functional mobility and safety. Outcome: Progressing Goal: Sit <-> Stand Transfers - Patient will perform sit to/from stand transfers with independence and least restrictive device in order to improve functional mobility and safety. Outcome: Progressing Goal: Standing Endurance/Balance - Patient will perform standing balance tasks for 15 min with independence and least restrictive device while maintaining an RPE of less than 5/10 to improve endurance and safety with standing tasks. Outcome: Progressing Goal: Ambulation - Patient will ambulate 200 feet with independence and least restrictive device to improve ability to safely navigate home and community. Outcome: Progressing Goal: Strength - Patient will demonstrate understanding of exercise program. Outcome: Progressing Cosigned by Oscar Gann PT at 05/12/2025 1:40 PM EDT Problem: Swallowing Impairment Goal: Optimal Eating/Swallowing without Aspiration Outcome: Progressing Problem: Adult Inpatient Plan of Care Goal: Plan of Care Review Outcome: Progressing Goal: Patient-Specific Goal (Individualized) Outcome: Progressing Goal: Absence of Hospital-Acquired Illness or Injury Outcome: Progressing Goal: Optimal Comfort and Wellbeing Outcome: Progressing Goal: Readiness for Transition of Care Outcome: Progressing Problem: Wound Goal: Optimal Coping Outcome: Progressing Goal: Optimal Functional Ability Outcome: Progressing Goal: Absence of Infection Signs and Symptoms Outcome: Progressing Goal: Improved Oral Intake Outcome: Progressing Goal: Optimal Pain Control and Function Outcome: Progressing Goal: Skin Health and Integrity Outcome: Progressing Goal: Optimal Wound Healing Outcome: Progressing Problem: Breathing Pattern Ineffective Goal: Effective Breathing Pattern Outcome: Progressing 2038: MD Nixon notified of patient complaining of chest tightness and shortness of breath. Patient stated it is due to the cefepime that was infusing. Cefepime paused. VSS. Per chart, pt was complaining of chest tightness 05/10 when receiving cefepime as well. 2133: Pt refusing to restart cefepime. States his discomfort goes away when it is not infusing. MD Nixon aware. Problem: Swallowing Impairment Goal: Optimal Eating/Swallowing without Aspiration Outcome: Progressing Problem: Adult Inpatient Plan of Care Goal: Plan of Care Review Outcome: Progressing Goal: Patient-Specific Goal (Individualized) Outcome: Progressing Problem: Breathing Pattern Ineffective Goal: Effective Breathing Pattern Outcome: Progressing Problem: Wound Goal: Optimal Wound Healing Outcome: Progressing Problem: Wound Goal: Optimal Coping Outcome: Progressing Problem: Infection Goal: Absence of Infection Signs and Symptoms Outcome: Progressing Problem: Adult Inpatient Plan of Care Goal: Plan of Care Review Outcome: Progressing Problem: Swallowing Impairment Goal: Optimal Eating/Swallowing without Aspiration Outcome: Progressing Problem: Adult Inpatient Plan of Care Goal: Plan of Care Review Outcome: Progressing Goal: Patient-Specific Goal (Individualized) Outcome: Progressing Goal: Absence of Hospital-Acquired Illness or Injury Outcome: Progressing Goal: Optimal Comfort and Wellbeing Outcome: Progressing Goal: Readiness for Transition of Care Outcome: Progressing Problem: PT - General Goals Goal: Supine <-> Sit Transfers - Patient will perform supine to/from sit transfers with independence and without use of hospital bed features in order to improve functional mobility and safety. Outcome: Progressing Goal: Sit <-> Stand Transfers - Patient will perform sit to/from stand transfers with independence and least restrictive device in order to improve functional mobility and safety. Outcome: Progressing Goal: Standing Endurance/Balance - Patient will perform standing balance tasks for 15 min with independence and least restrictive device while maintaining an RPE of less than 5/10 to improve endurance and safety with standing tasks. Outcome: Progressing Goal: Ambulation - Patient will ambulate 200 feet with independence and least restrictive device to improve ability to safely navigate home and community. Outcome: Progressing Goal: Stairs - Patient will ascend/descend 1 stairs with independence, least restrictive device, and single railing(s) to improve ability to safely navigate home and community. Outcome: Progressing Goal: Strength - Patient will demonstrate understanding of exercise program. Outcome: Progressing Problem: OT - ADLs Goal: Lower Body Dressing - Patient will complete lower body dressing tasks with independence using adaptive equipment/compensatory strategies as needed for improved ability to complete self-care activities. Outcome: Progressing Goal: Grooming - Patient will complete grooming in standing with independence for improved ability to safely complete ADLs. Outcome: Progressing Goal: Toileting - Patient will complete toileting task with independence and adaptive equipment as needed for improved ability to safely complete self-care activities. Outcome: Progressing Problem: OT - Transfers Goal: Transfers Toilet/ Bedside Commode - Patient will transfer to/from toilet/bedside commode with independence for improved ability to safely complete ADLs. Outcome: Progressing Problem: OT - Balance Goal: Balance - Standing - Patient will perform 10 minutes of functional task in standing with modified independence and good balance to promote safety and improved balance required for self-care activities. Outcome: Progressing Problem: OT - Endurance Goal: Endurance Functional Mobility - Patient will complete distance needed for common household mobility and distance needed for limited community mobility with modified independence using LRAD for improved tolerance to safely complete I/ADL's Outcome: Progressing Problem: OT - Cognition Goal: Safety - Patient will demonstrate good safety awareness during ADL routine with minimal cues for accuracy. Outcome: Progressing Problem: Adult Inpatient Plan of Care Goal: Patient-Specific Goal (Individualized) Outcome: Progressing Problem: Adult Inpatient Plan of Care Goal: Patient-Specific Goal (Individualized) Outcome: Progressing Patient came with packet of OSH records, which have already been sent on to medical records, and scanned into media tab, , culture results are on page 19, updated ID OSH disc imaging uploaded by hospitalist Van fischer, Dr garcia and ID updated C Radha Hospitalist Van [id number] Images from the original note were not included. 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 Patient visited at bedside and is agreeable to skin assessment. Patient is current with a Podiatric provider where he lives. Recent MRI outpatient with noted osteomyelitis. Patient states that he believes they had recommended amputation of the distal phalanx. Description of wound: Existing dressings removed and skin cleansed with Vashe wound cleanser and pat dry. There is exposed bone that is dry, desiccated, surrounded by adherent yellow/ramesh slough. Patient states that he has been using Santyl at home though given presence of exposed bone would recommend stopping Santyl at this time. Thick calloused skin noted to periwound surface. Faint pink erythema to dorsal toe. HydroFera Ready Blue foam was cut to size and placed over wound surface then secured with Allevyn Life bordered foam. Recommend daily dressing change per nursing staff. Patient with planned follow-up with Podiatry next (per patient). May benefit from Podiatry evaluation whilst admitted. Next the bilateral buttocks were examined. Mirrored blanchable erythema with signs of linear shearing force. Patient states area is sore. Has not been out of bed as much as [he] normally is. Recommend barrier ointment twice daily. Recommendation: Recommend continuing pressure reduction techniques including frequent repositioning, minimizing elevation of the head of the bed, and encouraging patient to be out of bed as much as possible (use pressure reducing wheelchair cushion when sitting in chair). Apply TruVue boots or float heels on pillows bilaterally while in bed for pressure offloading protection. Optimize nutrition to improve skin and wound outcomes. Increase protein intake as tolerated. Consider supplemental zinc, vitamin C (or multivitamin) to promote wound healing. Patient currently on BELA AP support surface. Recommend minimizing layers between patient and support surface to maximize drying microclimate created by support surface. HydroFera Ready Blue Foam dressing to right great toe once daily, secured with bordered foam dressing. Consider Podiatry consultation. Barrier ointment to bilateral buttocks twice daily. Bed Surface: BELA + APR Mattress Discharge Recommendations: Patient may continue care as described above at discharge. See image(s) below: Wilder Skin Assessment: Wilder Risk Assessment Sensory Perception: 4-->no impairment Moisture: 4-->rarely moist Activity: 3-->walks occasionally Mobility: 3-->slightly limited Nutrition: 3-->adequate Friction and Shear: 3-->no apparent problem Wilder Score: 20 Wilder Score: Wilder Score: 20 Body mass index is 30.81 kg/m . Total time spent in assessment and treatment of patient: 25 minutes spent providing patient care. LABS: Albumin Date Value Ref Range Status 05/09/2025 3.5 3.5 - 5.0 g/dL Final 06/17/2021 3.8 3.5 - 5.0 G/dl Final No results found for: PREALBUMIN Wound Documentation: 05/09/25940 Wound Vascular Ulcer Arterial 05/09/25940 Anterior;Right Foot Date First Assessed/Time First Assessed: 05/09/25940 Primary Wound Type: Vascular Ulcer Secondary Wound Type - Vascular Ulcer: Arterial Present on Original Admission: Yes Wound Location Orientation: Anterior;Right Location: Foot Wound Image Dressing Status Changed/New Closure None Assessment Dry;Bone;Yellow;Stable Eschar Edna-Wound Assessment Edema Non-staged Wound Description Full thickness Wound Length (cm) 2 cm Wound Width (cm) 2 cm Wound Surface Area (cm^2) 3.14 cm^2 Wound Depth (cm) 1.5 cm Wound Volume (cm^3) 3.142 cm^3 State of Healing No change Drainage Amount None Percentage Non-Viable Tissue non-viable greater than 75% Treatment Applied wound cleanser, cleansed with Offloading cushion;heel floating with pillows;mattress $$ Dressing Applied hydrofera blue;foam Periwound Care Applied wound cleanser, cleansed with Date Dressing Changed 05/09/25 Plan Problem arterial;foot ulcer Current Plan (S) podiatry;Hydrofera Blue Visit Type Consult with RN Supportive Measures bed therapy;elevate extremitiy;position off wound;turn every 2 hours;optimize nutrition Discharge Plans outpatient wound care;home health Teaching Material Provided about your dressing change;wound care;wound cleaning WOCT Visit Frequency PRN Last Date Seen 05/09/25 RN notified of assessment and plan. Please page #[phone] or reconsult with any further needs. Problem: OT - ADLs Goal: Lower Body Dressing - Patient will complete lower body dressing tasks with independence using adaptive equipment/compensatory strategies as needed for improved ability to complete self-care activities. Outcome: Ongoing Goal: Grooming - Patient will complete grooming in standing with independence for improved ability to safely complete ADLs. Outcome: Ongoing Goal: Toileting - Patient will complete toileting task with independence and adaptive equipment as needed for improved ability to safely complete self-care activities. Outcome: Ongoing Problem: OT - Transfers Goal: Transfers Toilet/ Bedside Commode - Patient will transfer to/from toilet/bedside commode with independence for improved ability to safely complete ADLs. Outcome: Ongoing Problem: OT - Balance Goal: Balance - Standing - Patient will perform 10 minutes of functional task in standing with modified independence and good balance to promote safety and improved balance required for self-care activities. Outcome: Ongoing Problem: OT - Endurance Goal: Endurance Functional Mobility - Patient will complete distance needed for common household mobility and distance needed for limited community mobility with modified independence using LRAD for improved tolerance to safely complete I/ADL's Outcome: Ongoing Problem: OT - Cognition Goal: Safety - Patient will demonstrate good safety awareness during ADL routine with minimal cues for accuracy. Outcome: Ongoing Problem: PT - General Goals Goal: Supine <-> Sit Transfers - Patient will perform supine to/from sit transfers with independence and without use of hospital bed features in order to improve functional mobility and safety. Outcome: Ongoing Goal: Sit <-> Stand Transfers - Patient will perform sit to/from stand transfers with independence and least restrictive device in order to improve functional mobility and safety. Outcome: Ongoing Goal: Standing Endurance/Balance - Patient will perform standing balance tasks for 15 min with independence and least restrictive device while maintaining an RPE of less than 5/10 to improve endurance and safety with standing tasks. Outcome: Ongoing Goal: Ambulation - Patient will ambulate 200 feet with independence and least restrictive device to improve ability to safely navigate home and community. Outcome: Ongoing Goal: Stairs - Patient will ascend/descend 1 stairs with independence, least restrictive device, and single railing(s) to improve ability to safely navigate home and community. Outcome: Ongoing Goal: Strength - Patient will demonstrate understanding of exercise program. Outcome: Ongoing On admission to [facility], from outside facility a dual RN initial assessment of skin condition was performed by Valentino Olivares RN and Manohar Tolliver RN Skin Assessment: Skin not within defined limits. - Wound(s) identified: Yes - Photo taken and uploaded into notes in [facility]: Yes LDA Added:No Valentino Olivares RN documented in this encounter [facility] 05-13-2025 Plan of care note Problem: PT - General Goals Goal: Sit <-> Stand Transfers - Patient will perform sit to/from stand transfers with independence and least restrictive device in order to improve functional mobility and safety. Outcome: Progressing Goal: Ambulation - Patient will ambulate 200 feet with independence and least restrictive device to improve ability to safely navigate home and community. Outcome: Ongoing Goal: Stairs - Patient will ascend/descend 1 stairs with independence, least restrictive device, and single railing(s) to improve ability to safely navigate home and community. Outcome: Progressing Cosigned by Maggy Almaraz PT at 05/13/2025 3:15 PM EDT [facility] 05-12-2025 Plan of care note Problem: PT - General Goals Goal: Supine <-> Sit Transfers - Patient will perform supine to/from sit transfers with independence and without use of hospital bed features in order to improve functional mobility and safety. Outcome: Progressing Goal: Sit <-> Stand Transfers - Patient will perform sit to/from stand transfers with independence and least restrictive device in order to improve functional mobility and safety. Outcome: Progressing Goal: Standing Endurance/Balance - Patient will perform standing balance tasks for 15 min with independence and least restrictive device while maintaining an RPE of less than 5/10 to improve endurance and safety with standing tasks. Outcome: Progressing Goal: Ambulation - Patient will ambulate 200 feet with independence and least restrictive device to improve ability to safely navigate home and community. Outcome: Progressing Goal: Strength - Patient will demonstrate understanding of exercise program. Outcome: Progressing Cosigned by Oscar Gann PT at 05/12/2025 1:40 PM EDT [facility] 05-12-2025 Plan of care note Problem: Swallowing Impairment Goal: Optimal Eating/Swallowing without Aspiration Outcome: Progressing Problem: Adult Inpatient Plan of Care Goal: Plan of Care Review Outcome: Progressing Goal: Patient-Specific Goal (Individualized) Outcome: Progressing Goal: Absence of Hospital-Acquired Illness or Injury Outcome: Progressing Goal: Optimal Comfort and Wellbeing Outcome: Progressing Goal: Readiness for Transition of Care Outcome: Progressing Problem: Wound Goal: Optimal Coping Outcome: Progressing Goal: Optimal Functional Ability Outcome: Progressing Goal: Absence of Infection Signs and Symptoms Outcome: Progressing Goal: Improved Oral Intake Outcome: Progressing Goal: Optimal Pain Control and Function Outcome: Progressing Goal: Skin Health and Integrity Outcome: Progressing Goal: Optimal Wound Healing Outcome: Progressing Problem: Breathing Pattern Ineffective Goal: Effective Breathing Pattern Outcome: Progressing [facility] 05-11-2025 Nurse Note 2038: MD Nixon notified of patient complaining of chest tightness and shortness of breath. Patient stated it is due to the cefepime that was infusing. Cefepime paused. VSS. Per chart, pt was complaining of chest tightness 05/10 when receiving cefepime as well. 2133: Pt refusing to restart cefepime. States his discomfort goes away when it is not infusing. MD Nixon aware. [facility] 05-11-2025 Plan of care note Problem: Swallowing Impairment Goal: Optimal Eating/Swallowing without Aspiration Outcome: Progressing Problem: Adult Inpatient Plan of Care Goal: Plan of Care Review Outcome: Progressing Goal: Patient-Specific Goal (Individualized) Outcome: Progressing [facility] 05-11-2025 Plan of care note Problem: Breathing Pattern Ineffective Goal: Effective Breathing Pattern Outcome: Progressing Problem: Wound Goal: Optimal Wound Healing Outcome: Progressing Problem: Wound Goal: Optimal Coping Outcome: Progressing Problem: Infection Goal: Absence of Infection Signs and Symptoms Outcome: Progressing Problem: Adult Inpatient Plan of Care Goal: Plan of Care Review Outcome: [facility]ing [facility] Plan of care note Problem: Swallowing Impairment Goal: Optimal Eating/Swallowing without Aspiration Outcome: Progressing Problem: Adult Inpatient Plan of Care Goal: Plan of Care Review Outcome: Progressing Goal: Patient-Specific Goal (Individualized) Outcome: Progressing Goal: Absence of Hospital-Acquired Illness or Injury Outcome: Progressing Goal: Optimal Comfort and Wellbeing Outcome: Progressing Goal: Readiness for Transition of Care Outcome: Progressing Problem: PT - General Goals Goal: Supine <-> Sit Transfers - Patient will perform supine to/from sit transfers with independence and without use of hospital bed features in order to improve functional mobility and safety. Outcome: Progressing Goal: Sit <-> Stand Transfers - Patient will perform sit to/from stand transfers with independence and least restrictive device in order to improve functional mobility and safety. Outcome: Progressing Goal: Standing Endurance/Balance - Patient will perform standing balance tasks for 15 min with independence and least restrictive device while maintaining an RPE of less than 5/10 to improve endurance and safety with standing tasks. Outcome: Progressing Goal: Ambulation - Patient will ambulate 200 feet with independence and least restrictive device to improve ability to safely navigate home and community. Outcome: Progressing Goal: Stairs - Patient will ascend/descend 1 stairs with independence, least restrictive device, and single railing(s) to improve ability to safely navigate home and community. Outcome: Progressing Goal: Strength - Patient will demonstrate understanding of exercise program. Outcome: Progressing Problem: OT - ADLs Goal: Lower Body Dressing - Patient will complete lower body dressing tasks with independence using adaptive equipment/compensatory strategies as needed for improved ability to complete self-care activities. Outcome: Progressing Goal: Grooming - Patient will complete grooming in standing with independence for improved ability to safely complete ADLs. Outcome: Progressing Goal: Toileting - Patient will complete toileting task with independence and adaptive equipment as needed for improved ability to safely complete self-care activities. Outcome: Progressing Problem: OT - Transfers Goal: Transfers Toilet/ Bedside Commode - Patient will transfer to/from toilet/bedside commode with independence for improved ability to safely complete ADLs. Outcome: Progressing Problem: OT - Balance Goal: Balance - Standing - Patient will perform 10 minutes of functional task in standing with modified independence and good balance to promote safety and improved balance required for self-care activities. Outcome: Progressing Problem: OT - Endurance Goal: Endurance Functional Mobility - Patient will complete distance needed for common household mobility and distance needed for limited community mobility with modified independence using LRAD for improved tolerance to safely complete I/ADL's Outcome: Progressing Problem: OT - Cognition Goal: Safety - Patient will demonstrate good safety awareness during ADL routine with minimal cues for accuracy. Outcome: Progressing Problem: Adult Inpatient Plan of Care Goal: Patient-Specific Goal (Individualized) Outcome: Progressing Problem: Adult Inpatient Plan of Care Goal: Patient-Specific Goal (Individualized) Outcome: Progressing [facility] Plan of care note Patient came with packet of OSH records, which have already been sent on to medical records, and scanned into media tab, , culture results are on page 19, updated ID [facility] disc imaging uploaded by hospitalist Van fischer, Dr garcia and ID updated C Radha Hospitalist Van [id number] [facility] Consult note Associated Order (s): IP CONSULT TO PULMONOLOGY Pulmonary/Critical Care Medicine Inpatient Consultation Reason for Consultation: hemoptysis in setting of PNA/lung abscess Requesting Physician: RAAFELA GARCIA Outpatient Pulmonary Physician: None HPI: Tristin Hortensia Powell Sr. is a 85 y.o. male with CAD s/p stent x7, PAD s/p SFA-peroneal bypass, L foot amputation, chronic R foot ulcer, HTN, HLD, BPH who presented on 05/09/2025 from OSH for hemoptysis. Patient states prior to coming to OSH, he had a head cold and what felt like an URI infection, admitted to some worsening LAM. Was treated for AECOPD exacerbation at [facility] and [facility] but states that he felt that he was not improving. Was also being treated with broad spectrum antibiotics. Only uses a PRN inhaler at home, states that he feels improved since he has been transferred here. Denies history of blood clots or pulmonary emboli. Continues to have a cough with blood tinge but feels that his chest is starting to clear up. ROS: Pertinent positives and negatives as per HPI. All other systems were reviewed and negative. Past Medical, Surgical, Family & Social History: Past Medical History[1] Past Surgical History[2] Family History Problem Relation Age of Onset Myocardial Infarction Mother Diabetes Mother Myocardial Infarction Father Prostate Cancer Brother No known problems Sister Coronary Artery Disease Paternal Aunt Coronary Artery Disease Paternal Uncle Coronary Artery Disease Maternal Grandmother Coronary Artery Disease Paternal Grandmother No known problems Son No known problems Daughter Social History[3] Allergies & Medications: Allergies[4] Scheduled Medications: [Held by provider] aspirin 81 mg Oral Daily atorvastatin 80 mg Oral Daily ceFEPIme 2 g Intravenous Q8HNS collagenase 1 Application Topical Daily Ipratropium-albuterol 3 mL Nebulization Q6H Losartan 25 mg Oral Daily Metoprolol 50 mg Oral BID Pantoprazole 40 mg Oral Daily [Held by provider] Rivaroxaban 2.5 mg Oral BID Tamsulosin HCl 0.4 mg Oral Daily vancomycin 1,250 mg Intravenous Q12HNS Continuous Infusions: PRN Medications:Acetaminophen, guaiFENesin-codeine, Melatonin, Ondansetron 4mg/2ml OR Ondansetron, oxyCODONE-acetaminophen, Polyethylene glycol, Senna, Sodium chloride 0.9% Objective Findings: Physical Exam: Temp: [97.8 F (36.6 C)-98.3 F (36.8 C)] 97.8 F (36.6 C) Pulse (Heart Rate): [62-98] 62 Resp Rate: [16-20] 16 BP: (152-186)/(69-86) 152/69 O2 Sat (%): [94 %-99 %] 94 % Weight: [108.9 kg (240 lb)] 108.9 kg (240 lb) GEN: well-appearing, NAD, normal weight. HEENT: normal conjunctivae, clear oropharynx, moist MM, no cervical lymphadenopathy. RESP: CTAB w/ good air movement, no w/r/r, breathing comfortably on RA. +cough with blood in suction tubing CV: RRR, normal S1 and S2, no r/g/m, no LE edema, no JVD. GI: soft, NT, ND. MSK: no deformity. SKIN: warm, dry, no clubbing or cyanosis. NEURO: alert, responds appropriately to questions, no gross motor deficit. Lab Data: WBC/Hgb/Hct/Plts: 6.41/10.9/33.0/232 (05/09 337) Na/K+/Phos/Mg/Ca: 139/4.2/3.2/2.0/9.1 (05/09 337) Bun/Creat/Cl/CO2/Glucose: 25/0.92/107/22/100 (05/09 337) Ptt/Pt/Inr: 23.6/14.4/1.1 (05/09 337) Relevant Microbiologic Data: +Rhinovirus at OSH CT chest on 05/04 showing bilateral patchy infiltrates, 10 cm air-fluid collection LLL c/f infected bullae vs abscess Impression & Recommendations: Tristin Powell . is a 85 y.o. male with CAD s/p stent x7, PAD s/p SFA-peroneal bypass, L foot amputation, chronic R foot ulcer, HTN, HLD, BPH who presented on 05/09/2025 from OSH for hemoptysis. Impression: Abnormal Chest CT, reported cavitary lesion Hemoptysis COPD Exacerbation Hemoptysis likely secondary to intrapulmonary pathology at OSH. Would benefit from obtaining the images and evaluation of abscess or cavitary lesion. Also previously on ASA and xarelto outpatient likely oozing from erosion of lung parenchyma. Was receiving TXA nebs outpatient but continues to have hemoptysis at this time with a productive cough. Recommendations: Please obtain OSH imaging with push of images to cloud Prednisone 40mg for 4 days, 30mg for 4 days, 20mg for 4 days, then 10mg for 4 days TXA nebs BID Daily Hg trend If patient starts to have large volume hemoptysis, please obtain STAT CTA chest with IR consult for embolization eval Please hold Staff: Wendy Thank you for this consult. All recommendations are preliminary until cosigned by the attending. Obdulio Chapa MD PGY-4, Pulmonary and Critical Care Medicine [1] Past Medical History: Diagnosis Date Arthritis CAD (coronary artery disease) 3 stents placed COPD (chronic obstructive pulmonary disease) Essential hypertension, benign GERD (gastroesophageal reflux disease) Hyperlipidemia Prostate cancer Vascular disease [2] Past Surgical History: Procedure Laterality Date ARTHROPLASTY [...] ankle CORONARY ARTERY BYPASS GRAFT 3 vessel RADIOGRAPHIC/SURGICAL IMPLANT INDEX jul 2010-november 2010 radioactive seeds implanted prostate [3] Social History Tobacco Use Smoking status: Never Smokeless tobacco: Never Vaping Use Vaping status: Never Used Substance Use Topics Alcohol use: No Drug use: No [4] Allergies Allergen Reactions Gabapentin Cosigned by Beena Nguyen MD at 05/09/2025 4:53 PM EDT Associated attestation - Beena Nguyen MD - 05/09/2025 4:53 PM EDT Attending Addendum: I have seen and examined the Mr. Powell independently. I agree with the history, physical, and assessment / plan of Dr. Chapa with my additions included below. I independently reviewed the images, labs, and other studies as detailed below. Impression: Hemoptysis PNA - infected bullae from report COPD Exacerbation Recs: Obtain films Cont abx per ID Hold DOAC TXA inhaled Bronchodilators Prednisone as outlined below Beena Nguyen MD [facility] [facility] Consult note Associated Order (s): IP CONSULT TO PULMONOLOGY Pulmonary/Critical Care Medicine Inpatient Consultation Reason for Consultation: hemoptysis in setting of PNA/lung abscess Requesting Physician: RAFAELA GARCIA Outpatient Pulmonary Physician: None HPI: Tristin Powell Sr. is a 85 y.o. male with CAD s/p stent x7, PAD s/p SFA-peroneal bypass, L foot amputation, chronic R foot ulcer, HTN, HLD, BPH who presented on 05/09/2025 from OSH for hemoptysis. Patient states prior to coming to OSH, he had a head cold and what felt like an URI infection, admitted to some worsening LAM. Was treated for AECOPD exacerbation at OSH and [facility] but states that he felt that he was not improving. Was also being treated with broad spectrum antibiotics. Only uses a PRN inhaler at home, states that he feels improved since he has been transferred here. Denies history of blood clots or pulmonary emboli. Continues to have a cough with blood tinge but feels that his chest is starting to clear up. ROS: Pertinent positives and negatives as per HPI. All other systems were reviewed and negative. Past Medical, Surgical, Family & Social History: Past Medical History[1] Past Surgical History[2] Family History Problem Relation Age of Onset Myocardial Infarction Mother Diabetes Mother Myocardial Infarction Father Prostate Cancer Brother No known problems Sister Coronary Artery Disease Paternal Aunt Coronary Artery Disease Paternal Uncle Coronary Artery Disease Maternal Grandmother Coronary Artery Disease Paternal Grandmother No known problems Son No known problems Daughter Social History[3] Allergies & Medications: Allergies[4] Scheduled Medications: [Held by provider] aspirin 81 mg Oral Daily atorvastatin 80 mg Oral Daily ceFEPIme 2 g Intravenous Q8HNS collagenase 1 Application Topical Daily Ipratropium-albuterol 3 mL Nebulization Q6H Losartan 25 mg Oral Daily Metoprolol 50 mg Oral BID Pantoprazole 40 mg Oral Daily [Held by provider] Rivaroxaban 2.5 mg Oral BID Tamsulosin HCl 0.4 mg Oral Daily vancomycin 1,250 mg Intravenous Q12HNS Continuous Infusions: PRN Medications:Acetaminophen, guaiFENesin-codeine, Melatonin, Ondansetron 4mg/2ml OR Ondansetron, oxyCODONE-acetaminophen, Polyethylene glycol, Senna, Sodium chloride 0.9% Objective Findings: Physical Exam: Temp: [97.8 F (36.6 C)-98.3 F (36.8 C)] 97.8 F (36.6 C) Pulse (Heart Rate): [62-98] 62 Resp Rate: [16-20] 16 BP: (152-186)/(69-86) 152/69 O2 Sat (%): [94 %-99 %] 94 % Weight: [108.9 kg (240 lb)] 108.9 kg (240 lb) GEN: well-appearing, NAD, normal weight. HEENT: normal conjunctivae, clear oropharynx, moist MM, no cervical lymphadenopathy. RESP: CTAB w/ good air movement, no w/r/r, breathing comfortably on RA. +cough with blood in suction tubing CV: RRR, normal S1 and S2, no r/g/m, no LE edema, no JVD. GI: soft, NT, ND. MSK: no deformity. SKIN: warm, dry, no clubbing or cyanosis. NEURO: alert, responds appropriately to questions, no gross motor deficit. Lab Data: WBC/Hgb/Hct/Plts: 6.41/10.9/33.0/232 (05/09 337) Na/K+/Phos/Mg/Ca: 139/4.2/3.2/2.0/9.1 (05/09 337) Bun/Creat/Cl/CO2/Glucose: 25/0.92/107/22/100 (05/09 337) Ptt/Pt/Inr: 23.6/14.4/1.1 (05/09 337) Relevant Microbiologic Data: +Rhinovirus at OSH CT chest on 05/04 showing bilateral patchy infiltrates, 10 cm air-fluid collection LLL c/f infected bullae vs abscess Impression & Recommendations: Tristin Bazan Sherry Lima is a 85 y.o. male with CAD s/p stent x7, PAD s/p SFA-peroneal bypass, L foot amputation, chronic R foot ulcer, HTN, HLD, BPH who presented on 05/09/2025 from OSH for hemoptysis. Impression: Abnormal Chest CT, reported cavitary lesion Hemoptysis COPD Exacerbation Hemoptysis likely secondary to intrapulmonary pathology at OSH. Would benefit from obtaining the images and evaluation of abscess or cavitary lesion. Also previously on ASA and xarelto outpatient likely oozing from erosion of lung parenchyma. Was receiving TXA nebs outpatient but continues to have hemoptysis at this time with a productive cough. Recommendations: Please obtain OSH imaging with push of images to cloud Prednisone 40mg for 4 days, 30mg for 4 days, 20mg for 4 days, then 10mg for 4 days TXA nebs BID Daily Hg trend If patient starts to have large volume hemoptysis, please obtain STAT CTA chest with IR consult for embolization eval Please hold Staff: Wendy Thank you for this consult. All recommendations are preliminary until cosigned by the attending. Obdulio Chapa MD PGY-4, Pulmonary and Critical Care Medicine [1] Past Medical History: Diagnosis Date Arthritis CAD (coronary artery disease) 3 stents placed COPD (chronic obstructive pulmonary disease) Essential hypertension, benign GERD (gastroesophageal reflux disease) Hyperlipidemia Prostate cancer Vascular disease [2] Past Surgical History: Procedure Laterality Date ARTHROPLASTY [...] ankle CORONARY ARTERY BYPASS GRAFT 3 vessel RADIOGRAPHIC/SURGICAL IMPLANT INDEX jul 2010-november 2010 radioactive seeds implanted prostate [3] Social History Tobacco Use Smoking status: Never Smokeless tobacco: Never Vaping Use Vaping status: Never Used Substance Use Topics Alcohol use: No Drug use: No [4] Allergies Allergen Reactions Gabapentin Cosigned by Beena Nguyen MD at 05/09/2025 4:53 PM EDT Associated attestation - Beena Nguyen MD - 05/09/2025 4:53 PM EDT Attending Addendum: I have seen and examined the Mr. Powell independently. I agree with the history, physical, and assessment / plan of Dr. Chapa with my additions included below. I independently reviewed the images, labs, and other studies as detailed below. Impression: Hemoptysis PNA - infected bullae from report COPD Exacerbation Recs: Obtain films Cont abx per ID Hold DOAC TXA inhaled Bronchodilators Prednisone as outlined below Beena Nguyen MD MPH Associated Order(s): IP CONSULT TO INFECTIOUS DISEASE INFECTIOUS DISEASE CONSULT NOTE Referring MD: Rafaela Garcia MD Reason for Consult: 85 y/o M with COPD p/f OSH with rhinovirus c/b PNA, infected lung bullae vs. abscess per reports; would appreciate assitance with antibiotic regimen, any further w/u needed; pulm also following Chief Complaint: hemoptysis HPI: Tristin Powell Sr. is a 85 y.o. male with a PMH of CAD, PAD s/p SFA-peroneal bypass 02/2025, HTN, HLD, BPH, A fib, CKD3a who presented on 05/09/2025 as a transfer from [facility]. Patient presented to [facility] 05/02/25 with LAM, cough x10 days with blood streaked sputum. 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 At [facility], he was found to have rhinovirus. CT chest (05/04/25) showed bilateral patchy infiltrates, 10 cm air-fluid collection LLL c/f infected bullae vs abscess. Started on abx (pip/tazo and doxycycline), prednisone, duonebs. Developed worsening hemoptysis and pulmonary recommended transfer to [facility] for [facility]ization. Patient was admitted to [place] [facility]. On RA, sputum pink tinged. Patient is afebile. Currently on cefepime and vancomycin. Has coughing fits that make him sob. Blood tinged sputum. Has fevers at [facility], but has since resolved. Of note, patient was admitted to [facility] 03/14/25 - 03/21/25 with acute RLE ischemia. S/p distal SFA-peroneal bypass 03/12/25. After he got home, his right great toe became black on the lateral side. Saw his quality improvement engineer who took off the nail. Prescribed him amox/clav and TMP/SMX. Patient has known bone exposure and his quality improvement engineer prepped him for the fact that it may need to come off. Review of Systems - all systems reviewed and negative unless stated in the HPI. 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 Family History Problem Relation Age of Onset Myocardial Infarction Mother Diabetes Mother Myocardial Infarction Father Prostate Cancer Brother No known problems Sister Coronary Artery Disease Paternal Aunt Coronary Artery Disease Paternal Uncle Coronary Artery Disease Maternal Grandmother Coronary Artery Disease Paternal Grandmother No known problems Son No known problems Daughter Inpatient Medications: [Held by provider] aspirin 81 mg Oral Daily atorvastatin 80 mg Oral Daily ceFEPIme 2 g Intravenous Q8HNS collagenase 1 Application Topical Daily Ipratropium-albuterol 3 mL Nebulization Q6H Losartan 25 mg Oral Daily Metoprolol 50 mg Oral BID Pantoprazole 40 mg Oral Daily [Held by provider] Rivaroxaban 2.5 mg Oral BID Tamsulosin HCl 0.4 mg Oral Daily vancomycin 1,250 mg Intravenous Q12HNS Allergies[3] OBJECTIVE FINDINGS: Vital Signs (24hrs): Temp: [98 F (36.7 C)-98.3 F (36.8 C)] 98 F (36.7 C) Pulse (Heart Rate): [72-98] 86 Resp Rate: [18-20] 18 BP: (185-186)/(76-86) 185/76 O2 Sat (%): [95 %-99 %] 95 % Weight: [108.9 kg (240 lb)] 108.9 kg (240 lb) Physical Exam: GEN: Awake, resting comfortably, NAD, occ wet cough EYES: PERRL, EOMI, no scleral icterus HENT: MMM. No oral lesions. Fair dentition. No thrush NECK: Supple, no cervical lymphadenopathy or meningismus. CARDIO: RRR, no murmur. PULM/CHEST: decreased on the left side. No wheezes. Scattered rales ABD: Normal bowel sounds, soft, not tender or distended. No hepatosplenomegaly. MSK: no obvious effusion, swelling, increased warmth, or erythema of major joints. EXT: warm, well perfused. No pedal edema. 2+ pulse on R foot. Exposed great toe on right foot. No surroudning erythema or purulence. b/l L TMA SKIN: No rashes. Hands and fingers appear normal. NEURO: AOx3. CN II-XII grossly intact. No focal deficits. Psych: normal affect Lines: piv Labs: Lab Results Component Value Date WBC 6.41 05/09/2025 HGB 10.9 (L) 05/09/2025 HCT 33.0 (L) 05/09/2025 PLATELET 232 05/09/2025 MCV 91.9 05/09/2025 Lab Results Component Value Date CREATSERUM 0.92 05/09/2025 Lab Results Component Value Date ALT 180 (H) 05/09/2025 AST 125 (H) 05/09/2025 ALKPHOS 79 05/09/2025 BILITOTAL 0.7 05/09/2025 BILIDIRECT 0.1 05/09/2025 Microbiology: (personally reviewed) [facility] - called micro to get results 05/02/25 - RVP - rhinovirus 05/02/25 - covid neg 05/04/25 - Scx 1) strep pneumo S: levo (1), vanco (0.5), I: amox/clav (4/2), cefepime (2), ceftriaxone (1). R: cefuroxime (>2), sung (>0.5), PCN (4), tetra (>4), TMP/SMX (>2/38) 2) PSA S: cefepime, ceftaz/elian, ceftolozane/tazo, sung, tobra. IB: aztreo (<4), ceftaz (IB), pip/tazo (<8). R: cipro (2) 05/04/25 - MRSA nares neg 05/05/25 - Scx nl cameron 05/06/25 - legionella ag neg 05/06/25 - strep pneumo ag neg Imagin05/06/25 - CT chest ([facility]) - unable to see images - potential infected LLL bulla is once again noted. Impression: no significant chagne in lung findings compared to the prior study from 05/04/25. Bibasilar consolidations with potential infected bullae involving the LLL persists Impression: 85 y.o. male with CAD, PAD s/p SFA-peroneal bypass 02/2025, HTN, HLD, BPH, A fib, CKD3a transferred from [facility] with PNA and hemoptysis. Need full records and images brought over from [facility] to review. Initial sputum culture with pneumococcus with surprising MICs. Has been on amox/clav and TMP/SMX as an outpatient for his toe. Has exposed bone of R great toe and known OM - no acute infection of the soft tissues. Will eventally need amputated Recommendations: - import CT images to [facility] with overread. - repeat sputum culture here - continue cefepime and vancomycin. Monitor trough for toxicity. Continue droplet precautions given rhinovirus. My clinical assessment included addressing complex issues in the following area(s): Disease Transmission Risk Assessment and Mitigation - Includes infection control procedures, counseling for patients and caregivers, and coordinated efforts to minimize transmission risks. Public Health Investigation, Analysis, and Testing - Involves detailed patient history assessments, advanced diagnostic evaluations, and collaboration with public health agencies for contact tracing and diagnostic testing. Discussed with primary team. ID Team 5 will continue to follow with you. If you have any questions, please reach out to the ID Team 5 pager found in [employer] below. The ID Team pagers are available - Monday through Monday from 7:00 am to 06:00 pm. For emergent or after hour issues, please page the on-call ID/1st call Fellow pager. [facility] - [facility] - Paola Cordova MD Chimney Supervisor [employer] helper Division of Infectious Diseases Pager #[phone] [1] Past Medical History: Diagnosis Date Arthritis CAD (coronary artery disease) 3 stents placed COPD (chronic obstructive pulmonary disease) Essential hypertension, benign GERD (gastroesophageal reflux disease) Hyperlipidemia Prostate cancer Vascular disease [2] Past Surgical History: Procedure Laterality Date ARTHROPLASTY [...] ankle CORONARY ARTERY BYPASS GRAFT 3 vessel RADIOGRAPHIC/SURGICAL IMPLANT INDEX jul 2010-november 2010 radioactive seeds implanted prostate [3] Allergies Allergen Reactions Gabapentin documented in this encounter [facility] 05-09-2025 Consult note Associated Order (s): IP CONSULT TO PULMONOLOGY Pulmonary/Critical Care Medicine Inpatient Consultation Reason for Consultation: hemoptysis in setting of PNA/lung abscess Requesting Physician: RAFAELA GARCIA Outpatient Pulmonary Physician: None HPI: Tristin Powell Sr. is a 85 y.o. male with CAD s/p stent x7, PAD s/p SFA-peroneal bypass, L foot amputation, chronic R foot ulcer, HTN, HLD, BPH who presented on 05/09/2025 from OSH for hemoptysis. Patient states prior to coming to OSH, he had a head cold and what felt like an URI infection, admitted to some worsening LAM. Was treated for AECOPD exacerbation at OSH and [facility] but states that he felt that he was not improving. Was also being treated with broad spectrum antibiotics. Only uses a PRN inhaler at home, states that he feels improved since he has been transferred here. Denies history of blood clots or pulmonary emboli. Continues to have a cough with blood tinge but feels that his chest is starting to clear up. ROS: Pertinent positives and negatives as per HPI. All other systems were reviewed and negative. Past Medical, Surgical, Family & Social History: Past Medical History[1] Past Surgical History[2] Family History Problem Relation Age of Onset Myocardial Infarction Mother Diabetes Mother Myocardial Infarction Father Prostate Cancer Brother No known problems Sister Coronary Artery Disease Paternal Aunt Coronary Artery Disease Paternal Uncle Coronary Artery Disease Maternal Grandmother Coronary Artery Disease Paternal Grandmother No known problems Son No known problems Daughter Social History[3] Allergies & Medications: Allergies[4] Scheduled Medications: [Held by provider] aspirin 81 mg Oral Daily atorvastatin 80 mg Oral Daily ceFEPIme 2 g Intravenous Q8HNS collagenase 1 Application Topical Daily Ipratropium-albuterol 3 mL Nebulization Q6H Losartan 25 mg Oral Daily Metoprolol 50 mg Oral BID Pantoprazole 40 mg Oral Daily [Held by provider] Rivaroxaban 2.5 mg Oral BID Tamsulosin HCl 0.4 mg Oral Daily vancomycin 1,250 mg Intravenous Q12HNS Continuous Infusions: PRN Medications:Acetaminophen, guaiFENesin-codeine, Melatonin, Ondansetron 4mg/2ml OR Ondansetron, oxyCODONE-acetaminophen, Polyethylene glycol, Senna, Sodium chloride 0.9% Objective Findings: Physical Exam: Temp: [97.8 F (36.6 C)-98.3 F (36.8 C)] 97.8 F (36.6 C) Pulse (Heart Rate): [62-98] 62 Resp Rate: [16-20] 16 BP: (152-186)/(69-86) 152/69 O2 Sat (%): [94 %-99 %] 94 % Weight: [108.9 kg (240 lb)] 108.9 kg (240 lb) GEN: well-appearing, NAD, normal weight. HEENT: normal conjunctivae, clear oropharynx, moist MM, no cervical lymphadenopathy. RESP: CTAB w/ good air movement, no w/r/r, breathing comfortably on RA. +cough with blood in suction tubing CV: RRR, normal S1 and S2, no r/g/m, no LE edema, no JVD. GI: soft, NT, ND. MSK: no deformity. SKIN: warm, dry, no clubbing or cyanosis. NEURO: alert, responds appropriately to questions, no gross motor deficit. Lab Data: WBC/Hgb/Hct/Plts: 6.41/10.9/33.0/232 (05/09 337) Na/K+/Phos/Mg/Ca: 139/4.2/3.2/2.0/9.1 (05/09 337) Bun/Creat/Cl/CO2/Glucose: 25/0.92/107/22/100 (05/09 337) Ptt/Pt/Inr: 23.6/14.4/1.1 (05/09 337) Relevant Microbiologic Data: +Rhinovirus at OSH CT chest on 05/04 showing bilateral patchy infiltrates, 10 cm air-fluid collection LLL c/f infected bullae vs abscess Impression & Recommendations: Tristin Powell Sr. is a 85 y.o. male with CAD s/p stent x7, PAD s/p SFA-peroneal bypass, L foot amputation, chronic R foot ulcer, HTN, HLD, BPH who presented on 05/09/2025 from OSH for hemoptysis. Impression: Abnormal Chest CT, reported cavitary lesion Hemoptysis COPD Exacerbation Hemoptysis likely secondary to intrapulmonary pathology at OSH. Would benefit from obtaining the images and evaluation of abscess or cavitary lesion. Also previously on ASA and xarelto outpatient likely oozing from erosion of lung parenchyma. Was receiving TXA nebs outpatient but continues to have hemoptysis at this time with a productive cough. Recommendations: Please obtain OSH imaging with push of images to cloud Prednisone 40mg for 4 days, 30mg for 4 days, 20mg for 4 days, then 10mg for 4 days TXA nebs BID Daily Hg trend If patient starts to have large volume hemoptysis, please obtain STAT CTA chest with IR consult for embolization eval Please hold Staff: Wendy Thank you for this consult. All recommendations are preliminary until cosigned by the attending. Obdulio Chapa MD PGY-4, Pulmonary and Critical Care Medicine [1] Past Medical History: Diagnosis Date Arthritis CAD (coronary artery disease) 3 stents placed COPD (chronic obstructive pulmonary disease) Essential hypertension, benign GERD (gastroesophageal reflux disease) Hyperlipidemia Prostate cancer Vascular disease [2] Past Surgical History: Procedure Laterality Date ARTHROPLASTY HIP TOTAL ANTERIOR APPROACH Right 07/15/2021 Laterality: Right; Surgeon: Dashawn Silvestre MD; Location: [facility] PERIPHERAL ANGIOPLASTY N/A 08/09/2018 Laterality: N/A; Surgeon: Isaias Vogt MD; Location: [facility] CATH/EP LAB PERIPHERAL STENT PLACEMENT N/A 08/09/2018 Laterality: N/A; Surgeon: Isaias Vogt MD; Location: [facility] CATH/EP LAB ATHERECTOMY PERIPHERAL N/A 08/09/2018 Laterality: N/A; Surgeon: Isaias Vogt MD; Location: [facility] CATH/EP LAB CORONARY STENT PLACEMENT 2007 x3 total of 7 AMPUTATION front of left toes ANKLE FRACTURE SURGERY Left plate placed in L ankle CORONARY ARTERY BYPASS GRAFT 3 vessel RADIOGRAPHIC/SURGICAL IMPLANT INDEX jul 2010-november 2010 radioactive seeds implanted prostate [3] Social History Tobacco Use Smoking status: Never Smokeless tobacco: Never Vaping Use Vaping status: Never Used Substance Use Topics Alcohol use: No Drug use: No [4] Allergies Allergen Reactions Gabapentin Cosigned by Beena Nguyen MD at 05/09/2025 4:53 PM EDT Associated attestation - Beena Nguyen MD - 05/09/2025 4:53 PM EDT Attending Addendum: I have seen and examined the Mr. Powell independently. I agree with the history, physical, and assessment / plan of Dr. Chapa with my additions included below. I independently reviewed the images, labs, and other studies as detailed below. Impression: Hemoptysis PNA - infected bullae from report COPD Exacerbation Recs: Obtain films Cont abx per ID Hold DOAC TXA inhaled Bronchodilators Prednisone as outlined below Beena Nguyen MD MPH Associated Order(s): IP CONSULT TO INFECTIOUS DISEASE INFECTIOUS DISEASE CONSULT NOTE Referring MD: Rafaela Garcia MD Reason for Consult: 85 y/o M with COPD p/f OSH with rhinovirus c/b PNA, infected lung bullae vs. abscess per reports; would appreciate assitance with antibiotic regimen, any further w/u needed; pulm also following Chief Complaint: hemoptysis HPI: Tristin Poewll Sr. is a 85 y.o. male with a PMH of CAD, PAD s/p SFA-peroneal bypass 02/2025, HTN, HLD, BPH, A fib, CKD3a who presented on 05/09/2025 as a transfer from [facility]. Patient presented to [facility] 05/02/25 with LAM, cough x10 days with blood streaked sputum. 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 At [facility], he was found to have rhinovirus. CT chest (05/04/25) showed bilateral patchy infiltrates, 10 cm air-fluid collection LLL c/f infected bullae vs abscess. Started on abx (pip/tazo and doxycycline), prednisone, duonebs. Developed worsening hemoptysis and pulmonary recommended [facility] for [facility]. Patient was admitted to [place] [id number]. On RA, sputum pink tinged. Patient is afebile. Currently on cefepime and vancomycin. Has coughing fits that make him sob. Blood tinged sputum. Has fevers at [facility], but has since resolved. Of note, patient was admitted to [facility] 03/14/25 - 03/21/25 with acute RLE ischemia. S/p distal SFA-peroneal bypass 03/12/25. After he got home, his right great toe became black on the lateral side. Saw his quality improvement engineer who took off the nail. Prescribed him amox/clav and TMP/SMX. Patient has known bone exposure and his quality improvement engineer prepped him for the fact that it may need to come off. Review of Systems - all systems reviewed and negative unless stated in the HPI. 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 Family History Problem Relation Age of Onset Myocardial Infarction Mother Diabetes Mother Myocardial Infarction Father Prostate Cancer Brother No known problems Sister Coronary Artery Disease Paternal Aunt Coronary Artery Disease Paternal Uncle Coronary Artery Disease Maternal Grandmother Coronary Artery Disease Paternal Grandmother No known problems Son No known problems Daughter Inpatient Medications: [Held by provider] aspirin 81 mg Oral Daily atorvastatin 80 mg Oral Daily ceFEPIme 2 g Intravenous Q8HNS collagenase 1 Application Topical Daily Ipratropium-albuterol 3 mL Nebulization Q6H Losartan 25 mg Oral Daily Metoprolol 50 mg Oral BID Pantoprazole 40 mg Oral Daily [Held by provider] Rivaroxaban 2.5 mg Oral BID Tamsulosin HCl 0.4 mg Oral Daily vancomycin 1,250 mg Intravenous Q12HNS Allergies[3] OBJECTIVE FINDINGS: Vital Signs (24hrs): Temp: [98 F (36.7 C)-98.3 F (36.8 C)] 98 F (36.7 C) Pulse (Heart Rate): [72-98] 86 Resp Rate: [18-20] 18 BP: (185-186)/(76-86) 185/76 O2 Sat (%): [95 %-99 %] 95 % Weight: [108.9 kg (240 lb)] 108.9 kg (240 lb) Physical Exam: GEN: Awake, resting comfortably, NAD, occ wet cough EYES: PERRL, EOMI, no scleral icterus HENT: MMM. No oral lesions. Fair dentition. No thrush NECK: Supple, no cervical lymphadenopathy or meningismus. CARDIO: RRR, no murmur. PULM/CHEST: decreased on the left side. No wheezes. Scattered rales ABD: Normal bowel sounds, soft, not tender or distended. No hepatosplenomegaly. MSK: no obvious effusion, swelling, increased warmth, or erythema of major joints. EXT: warm, well perfused. No pedal edema. 2+ pulse on R foot. Exposed great toe on right foot. No surroudning erythema or purulence. b/l L TMA SKIN: No rashes. Hands and fingers appear normal. NEURO: AOx3. CN II-XII grossly intact. No focal deficits. Psych: normal affect Lines: piv Labs: Lab Results Component Value Date WBC 6.41 05/09/2025 HGB 10.9 (L) 05/09/2025 HCT 33.0 (L) 05/09/2025 PLATELET 232 05/09/2025 MCV 91.9 05/09/2025 Lab Results Component Value Date CREATSERUM 0.92 05/09/2025 Lab Results Component Value Date ALT 180 (H) 05/09/2025 AST 125 (H) 05/09/2025 ALKPHOS 79 05/09/2025 BILITOTAL 0.7 05/09/2025 BILIDIRECT 0.1 05/09/2025 Microbiology: (personally reviewed) [facility] - called micro to get results 05/02/25 - RVP - rhinovirus 05/02/25 - covid neg 05/04/25 - Scx 1) strep pneumo S: levo (1), vanco (0.5), I: amox/clav (4/2), cefepime (2), ceftriaxone (1). R: cefuroxime (>2), sung (>0.5), PCN (4), tetra (>4), TMP/SMX (>2/38) 2) PSA S: cefepime, ceftaz/elian, ceftolozane/tazo, sung, tobra. IB: aztreo (<4), ceftaz (IB), pip/tazo (<8). R: cipro (2) 05/04/25 - MRSA nares neg 05/05/25 - Scx nl cameron 05/06/25 - legionella ag neg 05/06/25 - strep pneumo ag neg Imagin05/06/25 - CT chest ([facility]) - unable to see images - potential infected LLL bulla is once again noted. Impression: no significant chagne in lung findings compared to the prior study from 05/04/25. Bibasilar consolidations with potential infected bullae involving the LLL persists Impression: 85 y.o. male with CAD, PAD s/p SFA-peroneal bypass 02/2025, HTN, HLD, BPH, A fib, CKD3a transferred from [facility] with PNA and hemoptysis. Need full records and images brought over from [facility] to review. Initial sputum culture with pneumococcus with surprising MICs. Has been on amox/clav and TMP/SMX as an outpatient for his toe. Has exposed bone of R great toe and known OM - no acute infection of the soft tissues. Will eventally need amputated Recommendations: - import CT images to [facility] with overread. - repeat sputum culture here - continue cefepime and vancomycin. Monitor trough for toxicity. Continue droplet precautions given rhinovirus. My clinical assessment included addressing complex issues in the following area(s): Disease Transmission Risk Assessment and Mitigation - Includes infection control procedures, counseling for patients and caregivers, and coordinated efforts to minimize transmission risks. Public Health Investigation, Analysis, and Testing - Involves detailed patient history assessments, advanced diagnostic evaluations, and collaboration with public health agencies for contact tracing and diagnostic testing. Discussed with primary team. ID Team 5 will continue to follow with you. If you have any questions, please reach out to the ID Team 5 pager found in QGenda below. The ID Team pagers are available - Monday through Monday from 7:00 am to 06:00 pm. For emergent or after hour issues, please page the on-call ID/1st call Fellow pager. [facility] System-Wide Infectious Disease - Paola Cordova MD Chimney Supervisor Brickgarage helper Division of Infectious Diseases Pager #[phone] [1] Past Medical History: Diagnosis Date Arthritis CAD (coronary artery disease) 3 stents placed COPD (chronic obstructive pulmonary disease) Essential hypertension, benign GERD (gastroesophageal reflux disease) Hyperlipidemia Prostate cancer Vascular disease [2] Past Surgical History: Procedure Laterality Date ARTHROPLASTY [...] ankle CORONARY ARTERY BYPASS GRAFT 3 vessel RADIOGRAPHIC/SURGICAL IMPLANT INDEX jul 2010-november 2010 radioactive seeds implanted prostate [3] Allergies Allergen Reactions Gab[facility] Note [facility] to [facility], from outside facility a dual RN initial assessment of skin condition was performed by Valentino Olivares RN and Manohar Tolliver RN Skin Assessment: Skin not within defined limits. - Wound(s) identified: Yes - Photo taken and uploaded into notes in IHIS: Yes LDA Added:No Valentino Olivares RN [facility] 05-09-2025 Consult note Associated Order (s): IP CONSULT TO INFECTIOUS DISEASE INFECTIOUS DISEASE CONSULT NOTE Referring MD: Rafaela Garcia MD Reason for Consult: 85 y/o M with COPD p/f OSH with rhinovirus c/b PNA, infected lung bullae vs. abscess per reports; would appreciate assitance with antibiotic regimen, any further w/u needed; pulm also following Chief Complaint: hemoptysis HPI: Tristin Powell Sr. is a 85 y.o. male with a PMH of CAD, PAD s/p SFA-peroneal bypass 02/2025, HTN, HLD, BPH, A fib, CKD3a who presented on 05/09/2025 as a transfer from [facility]. Patient presented to [facility] 05/02/25 with LAM, cough x10 days with blood streaked sputum. 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 At [facility], he was found to have rhinovirus. CT chest (05/04/25) showed bilateral patchy infiltrates, 10 cm air-fluid collection LLL c/f infected bullae vs abscess. Started on abx (pip/tazo and doxycycline), prednisone, duonebs. Developed worsening hemoptysis and pulmonary recommended transfer to [facility] for embolization. Patient was admitted to [place] [address]. On RA, sputum pink tinged. Patient is afebile. Currently on cefepime and vancomycin. Has coughing fits that make him sob. Blood tinged sputum. Has fevers at [facility], but has since resolved. Of note, patient was admitted to [facility] 03/14/25 - 03/21/25 with acute RLE ischemia. S/p distal SFA-peroneal bypass 03/12/25. After he got home, his right great toe became black on the lateral side. Saw his quality improvement engineer who took off the nail. Prescribed him amox/clav and TMP/SMX. Patient has known bone exposure and his quality improvement engineer prepped him for the fact that it may need to come off. Review of Systems - all systems reviewed and negative unless stated in the HPI. 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 Family History Problem Relation Age of Onset Myocardial Infarction Mother Diabetes Mother Myocardial Infarction Father Prostate Cancer Brother No known problems Sister Coronary Artery Disease Paternal Aunt Coronary Artery Disease Paternal Uncle Coronary Artery Disease Maternal Grandmother Coronary Artery Disease Paternal Grandmother No known problems Son No known problems Daughter Inpatient Medications: [Held by provider] aspirin 81 mg Oral Daily atorvastatin 80 mg Oral Daily ceFEPIme 2 g Intravenous Q8HNS collagenase 1 Application Topical Daily Ipratropium-albuterol 3 mL Nebulization Q6H Losartan 25 mg Oral Daily Metoprolol 50 mg Oral BID Pantoprazole 40 mg Oral Daily [Held by provider] Rivaroxaban 2.5 mg Oral BID Tamsulosin HCl 0.4 mg Oral Daily vancomycin 1,250 mg Intravenous Q12HNS Allergies[3] OBJECTIVE FINDINGS: Vital Signs (24hrs): Temp: [98 F (36.7 C)-98.3 F (36.8 C)] 98 F (36.7 C) Pulse (Heart Rate): [72-98] 86 Resp Rate: [18-20] 18 BP: (185-186)/(76-86) 185/76 O2 Sat (%): [95 %-99 %] 95 % Weight: [108.9 kg (240 lb)] 108.9 kg (240 lb) Physical Exam: GEN: Awake, resting comfortably, NAD, occ wet cough EYES: PERRL, EOMI, no scleral icterus HENT: MMM. No oral lesions. Fair dentition. No thrush NECK: Supple, no cervical lymphadenopathy or meningismus. CARDIO: RRR, no murmur. PULM/CHEST: decreased on the left side. No wheezes. Scattered rales ABD: Normal bowel sounds, soft, not tender or distended. No hepatosplenomegaly. MSK: no obvious effusion, swelling, increased warmth, or erythema of major joints. EXT: warm, well perfused. No pedal edema. 2+ pulse on R foot. Exposed great toe on right foot. No surroudning erythema or purulence. b/l L TMA SKIN: No rashes. Hands and fingers appear normal. NEURO: AOx3. CN II-XII grossly intact. No focal deficits. Psych: normal affect Lines: piv Labs: Lab Results Component Value Date WBC 6.41 05/09/2025 HGB 10.9 (L) 05/09/2025 HCT 33.0 (L) 05/09/2025 PLATELET 232 05/09/2025 MCV 91.9 05/09/2025 Lab Results Component Value Date CREATSERUM 0.92 05/09/2025 Lab Results Component Value Date ALT 180 (H) 05/09/2025 AST 125 (H) 05/09/2025 ALKPHOS 79 05/09/2025 BILITOTAL 0.7 05/09/2025 BILIDIRECT 0.1 05/09/2025 Microbiology: (personally reviewed) [facility] - called micro to get results 05/02/25 - RVP - rhinovirus 05/02/25 - covid neg 05/04/25 - Scx 1) strep pneumo S: levo (1), vanco (0.5), I: amox/clav (4/2), cefepime (2), ceftriaxone (1). R: cefuroxime (>2), sung (>0.5), PCN (4), tetra (>4), TMP/SMX (>2/38) 2) PSA S: cefepime, ceftaz/elian, ceftolozane/tazo, sung, tobra. IB: aztreo (<4), ceftaz (IB), pip/tazo (<8). R: cipro (2) 05/04/25 - MRSA nares neg 05/05/25 - Scx nl cameron 05/06/25 - legionella ag neg 05/06/25 - strep pneumo ag neg Imagin05/06/25 - CT chest ([facility]) - unable to see images - potential infected LLL bulla is once again noted. Impression: no significant chagne in lung findings compared to the prior study from 05/04/25. Bibasilar consolidations with potential infected bullae involving the LLL persists Impression: 85 y.o. male with CAD, PAD s/p SFA-peroneal bypass 02/2025, HTN, HLD, BPH, A fib, CKD3a transferred from [facility] with PNA and hemoptysis. Need full records and images brought over from [facility] to review. Initial sputum culture with pneumococcus with surprising MICs. Has been on amox/clav and TMP/SMX as an outpatient for his toe. Has exposed bone of R great toe and known OM - no acute infection of the soft tissues. Will eventally need amputated Recommendations: - import CT images to [facility] with overread. - repeat sputum culture here - continue cefepime and vancomycin. Monitor trough for toxicity. Continue droplet precautions given rhinovirus. My clinical assessment included addressing complex issues in the following area(s): Disease Transmission Risk Assessment and Mitigation - Includes infection control procedures, counseling for patients and caregivers, and coordinated efforts to minimize transmission risks. Public Health Investigation, Analysis, and Testing - Involves detailed patient history assessments, advanced diagnostic evaluations, and collaboration with public health agencies for contact tracing and diagnostic testing. Discussed with primary team. ID Team 5 will continue to follow with you. If you have any questions, please reach out to the ID Team 5 pager found in QGenda below. The ID Team pagers are available - Monday through Monday from 7:00 am to 06:00 pm. For emergent or after hour issues, please page the on-call ID/1st call Fellow pager. [facility] Infectious Disease - Paola Cordova MD Chimney Supervisor Brickgarage helper Division of Infectious Diseases Pager #[phone] [1] Past Medical History: Diagnosis Date Arthritis CAD (coronary artery disease) 3 stents placed COPD (chronic obstructive pulmonary disease) Essential hypertension, benign GERD (gastroesophageal reflux disease) Hyperlipidemia Prostate cancer Vascular disease [2] Past Surgical History: Procedure Laterality Date ARTHROPLASTY HIP TOTAL ANTERIOR APPROACH Right 07/15/2021 Laterality: Right; Surgeon: Dashawn Silvestre MD; Location: [facility] OR PERIPHERAL ANGIOPLASTY N/A 08/09/2018 Laterality: N/A; Surgeon: Isaias Vogt MD; Location: [facility] CARDIAC CATH/EP LAB PERIPHERAL STENT PLACEMENT N/A 08/09/2018 Laterality: N/A; Surgeon: Isaias Vogt MD; Location: [facility] CARDIAC CATH/EP LAB ATHERECTOMY PERIPHERAL N/A 08/09/2018 Laterality: N/A; Surgeon: Isaias Vogt MD; Location: [facility] CARDIAC CATH/EP LAB CORONARY STENT PLACEMENT 2007 x3 total of 7 AMPUTATION front of left toes ANKLE FRACTURE SURGERY Left plate placed in L ankle CORONARY ARTERY BYPASS GRAFT 3 vessel RADIOGRAPHIC/SURGICAL IMPLANT INDEX jul 2010-november 2010 radioactive seeds implanted prostate [3] Allergies Allergen Reactions Gabapentin [facility] Work Phone: 05-09-2025 Nurse Note Images from the original note were not included. 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 Patient visited at bedside and is agreeable to skin assessment. Patient is current with a Podiatric provider where he lives. Recent MRI outpatient with noted osteomyelitis. Patient states that he believes they had recommended amputation of the distal phalanx. Description of wound: Existing dressings removed and skin cleansed with Vashe wound cleanser and pat dry. There is exposed bone that is dry, desiccated, surrounded by adherent yellow/ramesh slough. Patient states that he has been using Santyl at home though given presence of exposed bone would recommend stopping Santyl at this time. Thick calloused skin noted to periwound surface. Faint pink erythema to dorsal toe. HydroFera Ready Blue foam was cut to size and placed over wound surface then secured with Allevyn Life bordered foam. Recommend daily dressing change per nursing staff. Patient with planned follow-up with Podiatry next (per patient). May benefit from Podiatry evaluation whilst admitted. Next the bilateral buttocks were examined. Mirrored blanchable erythema with signs of linear shearing force. Patient states area is sore. Has not been out of bed as much as [he] normally is. Recommend barrier ointment twice daily. Recommendation: Recommend continuing pressure reduction techniques including frequent repositioning, minimizing elevation of the head of the bed, and encouraging patient to be out of bed as much as possible (use pressure reducing wheelchair cushion when sitting in chair). Apply TruVue boots or float heels on pillows bilaterally while in bed for pressure offloading protection. Optimize nutrition to improve skin and wound outcomes. Increase protein intake as tolerated. Consider supplemental zinc, vitamin C (or multivitamin) to promote wound healing. Patient currently on BELA AP support surface. Recommend minimizing layers between patient and support surface to maximize drying microclimate created by support surface. HydroFera Ready Blue Foam dressing to right great toe once daily, secured with bordered foam dressing. Consider Podiatry consultation. Barrier ointment to bilateral buttocks twice daily. Bed Surface: BELA + APR Mattress Discharge Recommendations: Patient may continue care as described above at discharge. See image(s) below: Wilder Skin Assessment: Wilder Risk Assessment Sensory Perception: 4-->no impairment Moisture: 4-->rarely moist Activity: 3-->walks occasionally Mobility: 3-->slightly limited Nutrition: 3-->adequate Friction and Shear: 3-->no apparent problem Wilder Score: 20 Wilder Score: Wilder Score: 20 Body mass index is 30.81 kg/m . Total time spent in assessment and treatment of patient: 25 minutes spent providing patient care. LABS: Albumin Date Value Ref Range Status 05/09/2025 3.5 3.5 - 5.0 g/dL Final 06/17/2021 3.8 3.5 - 5.0 G/dl Final No results found for: PREALBUMIN Wound Documentation: 05/09/25940 Wound Vascular Ulcer Arterial 05/09/25940 Anterior;Right Foot Date First Assessed/Time First Assessed: 05/09/25940 Primary Wound Type: Vascular Ulcer Secondary Wound Type - Vascular Ulcer: Arterial Present on Original Admission: Yes Wound Location Orientation: Anterior;Right Location: Foot Wound Image Dressing Status Changed/New Closure None Assessment Dry;Bone;Yellow;Stable Eschar Edna-Wound Assessment Edema Non-staged Wound Description Full thickness Wound Length (cm) 2 cm Wound Width (cm) 2 cm Wound Surface Area (cm^2) 3.14 cm^2 Wound Depth (cm) 1.5 cm Wound Volume (cm^3) 3.142 cm^3 State of Healing No change Drainage Amount None Percentage Non-Viable Tissue non-viable greater than 75% Treatment Applied wound cleanser, cleansed with Offloading cushion;heel floating with pillows;mattress $$ Dressing Applied hydrofera blue;foam Periwound Care Applied wound cleanser, cleansed with Date Dressing Changed 05/09/25 Plan Problem arterial;foot ulcer Current Plan (S) podiatry;Hydrofera Blue Visit Type Consult with RN Supportive Measures bed therapy;elevate extremitiy;position off wound;turn every 2 hours;optimize nutrition Discharge Plans outpatient wound care;home health Teaching Material Provided about your dressing change;wound care;wound cleaning WOCT Visit Frequency PRN Last Date Seen 05/09/25 RN notified of assessment and plan. Please page #[phone] or reconsult with any further needs. [facility] 05-09-2025 Hospital Discharge instructions Rafaela Garcia MD - 05/09/2025 8:56 AM EDT Discharge instructions from your inpatient doctor, Rafaela Garcia MD, and team You were admitted to the hospital for coughing up blood. While you were here, you were seen by pulmonary and infectious disease and you received steroids and completed your antibiotics. After discharge, please do the following: Please follow-up with your local cabin supervisor in 4-6 weeks and get a repeat CT chest at the time of follow-up. Please review the first page of your after-visit summary for a detailed list of medication changes, follow-up instructions and scheduled appointments. Please note that not all appointments will be set up on discharge per case management policy. Please check your my chart if needed and follow up with your appointments if you do not receive a call. If you have any questions after your discharge, please call our office at [phone] or your floor and one of our nurses will call you back. Division of Hospital Medicine [phone] Patient Experience Survey Reminder You may receive a survey in the mail within a few weeks regarding your hospitalization. This helps us to improve the care and services we provide at [facility]. We truly appreciate you taking the time to fill this out. We particularly welcome any specific comments you may have (good or bad!) regarding your experience at [facility] so that we may use them to continue to strive towards excellence for our patients. The following attachments cannot be sent through Care Everywhere.Blood Thinners: How to Prevent Bleeding ([facility]) ([place])documented in this encounter [facility] 05-09-2025 Hospital Discharge instructions Rafaela Garcia MD - 05/09/2025 8:56 AM EDT Discharge instructions from your inpatient doctor, Rafaela Garcia MD, and team You were admitted to the hospital for coughing up blood. While you were here, you were seen by pulmonary and infectious disease and you received steroids and completed your antibiotics. After discharge, please do the following: Please follow-up with your local cabin supervisor in 4-6 weeks and get a repeat CT chest at the time of follow-up. Please review the first page of your after-visit summary for a detailed list of medication changes, follow-up instructions and scheduled appointments. Please note that not all appointments will be set up on discharge per case management policy. Please check your my chart if needed and follow up with your appointments if you do not receive a call. If you have any questions after your discharge, please call our office at [phone] or your floor and one of our nurses will call you back. Division of Hospital Medicine [phone] Patient Experience Survey Reminder You may receive a survey in the mail within a few weeks regarding your hospitalization. This helps us to improve the care and services we provide at [facility]. We truly appreciate you taking the time to fill this out. We particularly welcome any specific comments you may have (good or bad!) regarding your experience at [facility] so that we may use them to continue to strive towards excellence for our patients. The following attachments cannot be sent through Care Everywhere.Blood Thinners: How to Prevent Bleeding ([facility]) ([place])documented in this encounter [facility] 05-09-2025 Plan of care note Problem: OT - ADLs Goal: Lower Body Dressing - Patient will complete lower body dressing tasks with independence using adaptive equipment/compensatory strategies as needed for improved ability to complete self-care activities. Outcome: Ongoing Goal: Grooming - Patient will complete grooming in standing with independence for improved ability to safely complete ADLs. Outcome: Ongoing Goal: Toileting - Patient will complete toileting task with independence and adaptive equipment as needed for improved ability to safely complete self-care activities. Outcome: Ongoing Problem: OT - Transfers Goal: Transfers Toilet/ Bedside Commode - Patient will transfer to/from toilet/bedside commode with independence for improved ability to safely complete ADLs. Outcome: Ongoing Problem: OT - Balance Goal: Balance - Standing - Patient will perform 10 minutes of functional task in standing with modified independence and good balance to promote safety and improved balance required for self-care activities. Outcome: Ongoing Problem: OT - Endurance Goal: Endurance Functional Mobility - Patient will complete distance needed for common household mobility and distance needed for limited community mobility with modified independence using LRAD for improved tolerance to safely complete I/ADL's Outcome: Ongoing Problem: OT - Cognition Goal: Safety - Patient will demonstrate good safety awareness during ADL routine with minimal cues for accuracy. Outcome: Ongoing [facility] 05-09-2025 Plan of care note Problem: PT - General Goals Goal: Supine <-> Sit Transfers - Patient will perform supine to/from sit transfers with independence and without use of hospital bed features in order to improve functional mobility and safety. Outcome: Ongoing Goal: Sit <-> Stand Transfers - Patient will perform sit to/from stand transfers with independence and least restrictive device in order to improve functional mobility and safety. Outcome: Ongoing Goal: Standing Endurance/Balance - Patient will perform standing balance tasks for 15 min with independence and least restrictive device while maintaining an RPE of less than 5/10 to improve endurance and safety with standing tasks. Outcome: Ongoing Goal: Ambulation - Patient will ambulate 200 feet with independence and least restrictive device to improve ability to safely navigate home and community. Outcome: Ongoing Goal: Stairs - Patient will ascend/descend 1 stairs with independence, least restrictive device, and single railing(s) to improve ability to safely navigate home and community. Outcome: Ongoing Goal: Strength - Patient will demonstrate understanding of exercise program. Outcome: Ongoing [facility] 05-09-2025 History and physical note Hospital Medicine Admission History & Physical Patient: Tristin Powell , : 1940, Date of face to face patient encounter: 05/09/2025 Impression / Plan Acute bronchitis 2/2 rhinovirus CAP Lung abscess vs infected bullae CT chest on 05/04 showing bilateral patchy infiltrates, 10 cm air-fluid collection LLL c/f infected bullae vs abscess. Sputum culture 05/04 grew strep pneumo and pseudomonas, treated w/ doxy and zosyn then changed to cefepime on 05/08. Appears that patient has had improvement in symptoms with this management, although cough is still persistent. No fevers or leukocytosis on arrival to [facility]. - cont breathing treatments q6h - cont cefepime, switch doxy to vanc - Consult Pulmonology,ID in AM re: abx regimen, duration of abx treatment Hemoptysis, non massive Requiring inhaled TXA TID at [facility]. On arrival to [facility] patient only producing pink-tinged sputum, no ileana blood. Remains stable on room air. Hgb at [facility] 10-11. Stable on arrival to [facility] at 10.9 - Hold on further TXA at this time - No indication for IR consult overnight for embolization - CTM - hold rivaroxaban, ASA - if remains stable, improves will need re-started in setting of PAD with recent revasc Transaminitis Unclear etiology - RUQ US ordered - chronic hep battery ordered COPD exacerbation (resolved) No wheezing and good air movement on exam. Has completed prolonged course of prednisone, close to 14 days. - breathing treatments as above Acute hypoxic resp failure - resolved At [facility] requiring o2. Weaned to room air prior to transfer to [facility] - CTM PAD s/ SFA-peroneal bypass 02/2025 Chronic R foot ulcer - wound consulted - rivaroxaban, ASA management as above CAD x7 stents HDL - ASA as above - cont atorvastatin HTN - cont losartan, metop BPH - cont flomax GERD - cont PPI Problem list reviewed at admission. Quality Self-Check Complexity. . Obesity, class I Body mass index is 30.81 kg/m . - Follow with PCP for dietary and lifestyle modifications. Wound Documentation Any conditions listed below are present on admission unless otherwise specified. . DVT prophylaxis with SCD Anticipated Disposition: home once medically ready Code status is full Chief Complaint Hemoptysis History of Presenting Illness Tristin Powell Sr. is a 85 y.o. male with a past medical history of CAD x7 stents, PAD s/ SFA-peroneal bypass 02/2025, left metatarsal amputation, chronic R foot ulcer, HTN, HDL, BPH who presents as a transfer [facility] due to hemoptysis. Patient presented to [facility] on 05/02 due to shortness of breath on exertion, chest congestion, nonproductive cough that had been ongoing for about 10 days. He had been diagnosed with bronchitis about 10 days prior to admission to [facility] and had been taking steroids and breathing treatments without any improvement symptoms. He had presented to his primary care doctor's office on 05/02 where it was noted he was having productive cough with blood streaks and worsening shortness of breath. Given no improvement on management w/ pred and duonebs he was recommended to go to the emergency department by his PCP. On arrival to [facility] ED chest x-ray was notable for hilar vascular congestion, bibasilar linear atelectasis and hyperinflation and was admitted for further evaluation and management. Work up at [facility] was remarkable for (+) rhinovirus and a CT chest on 05/04 showing bilateral patchy infiltrates, 10 cm air-fluid collection LLL c/f infected bullae vs abscess. He was started on treatment with abx for tx of PNA with infected bullae vs lung abscess, prednisone and scheduled duonebs for COPD exacerbation. It appears that he developed significant hemoptysis which led to need for TXA breathing treatments TID. He was evaluated by Pulmonology at [facility] who recommended embolization for management of hemoptysis; procedure not performed by IR there. Transferred to [facility] for further management and consideration of embolization. Upon arrival to [facility] patient is well appearing, on room air. Coughs intermittently during interview. Producing sputum that is pink-tinged; no over blood noted during evaluation. Refers breathing is improved but productive, bloody cough is still persistent. Denies chest pain, v/d/c. History Past Medical History[1] Past Surgical History[2] Social History he reports that he has never smoked. He has never used smokeless tobacco. He reports that he does not drink alcohol and does not use drugs. Family History family history includes Coronary Artery Disease in his maternal grandmother, paternal aunt, paternal grandmother, and paternal uncle; Diabetes in his mother; Myocardial Infarction in his father and mother; No known problems in his daughter, sister, and son; Prostate Cancer in his brother. Medications / Allergies Prior to Admission Medications Prescriptions ASPIRIN 81 PO Sig: Take 81 mg by mouth. Metoprolol 50 MG tab regular release Sig: Take 1 tablet by mouth 2 times daily. Rivaroxaban 20 MG tablet Sig: Take 2.5 mg by mouth 2 times daily. Start in 22 days after the 15mg dose is completed Tamsulosin HCl 0.4 MG capsule Sig: Take 1 capsule by mouth daily. acetaminophen 325 MG tablet Sig: Take 2 tablets by mouth every 4 hours as needed for Mild Pain. albuterol (2.5 MG/3ML) 0.083% inhalation solution Sig: albuterol sulfate 2.5 mg/3 mL (0.083 %) solution for nebulization atorvastatin 40 MG Tab tablet Sig: Take 1 tablet by mouth 2 times daily. Takes 1/2 tab bid atorvastatin 80 MG tablet Sig: Take 1 tablet by mouth daily. celecoxib 200 MG capsule Sig: Take 1 capsule by mouth 2 times daily. Patient not taking: Reported on 01/12/2022 collagenase (Santyl) 250 UNIT/GM Ointment Sig: Apply 1 Application topically daily. To foot wound docusate 100 MG capsule Sig: Take 1 capsule by mouth 2 times daily. Patient not taking: Reported on 01/12/2022 gabapentin 100 MG Cap capsule Sig: Take 3 capsules by mouth 3 times daily. losartan 50 MG tablet Sig: Take 0.5 tablets by mouth daily. methylPREDNIsolone 4 MG Tab Therapy Pack tablet Sig: Take 1 tablet by mouth As directed. follow package directions Patient not taking: Reported on 01/12/2022 metoprolol succinate 50 MG PO tablet XL Sig: Take 1 tablet by mouth 2 times daily. Note (09/01/2011): Takes 50mg BID nitroGLYCERIN 0.4 MG tablet SL Sig: Place 1 tablet under tongue every 5 minutes as needed for Chest pain. max = 3 doses. If CP persists after 1st dose, call 911 omeprazole [address] capsule Sig: Take 1 capsule by mouth daily. oxyCODONE 5 MG tablet Sig: Take 1-2 tabs po q 4-6 hours PRN pain. Wean as tolerated. oxyCODONE-acetaminophen 5-325 MG per tablet Sig: Take 1 tablet by mouth every 8 hours as needed for Severe Pain. polyethylene glycol PO PACK Sig: take 1 Packet by mouth 2 times daily. senna 8.6 MG PO TABS Sig: take 1 Tab by mouth daily. therapeutic multivitamin-minerals tablet Sig: Take 1 tablet by mouth at bedtime. zolpidem 5 MG tablet Sig: Take 2 tablets by mouth At bedtime as needed for Sleep. Facility-Administered Medications: None Allergies[3] Objective Findings BP 186/86 (BP Location: Right arm, BP Position: Lying) Pulse 98 Temp 98.3 F (36.8 C) (Oral) Resp 20 Ht 1.88 m (6' 2 ) Wt 108.9 kg (240 lb) SpO2 99% BMI 30.81 kg/m Smoking Status Never Physical Exam Gen: Alert, Awake, NAD Resp: CTA, normal respiratory effort, persistent coughing with light pink tinged sputum Cardio: RRR, normal S1, S2 GI: S/NT/ND, NABS Neuro: Strength grossly equal in muscle groups of the bilateral UEs and LEs. Psych: Ox3, appropriate affect and cognition Data Review WBC/Hgb/Hct/Plts: 6.41/10.9/33.0/232 (05/09 337) Na/K+/Phos/Mg/Ca: 139/4.2/3.2/2.0/9.1 (05/09 337) Bun/Creat/Cl/CO2/Glucose: 25/0.92/107/22/100 (05/09 337) Ptt/Pt/Inr: 23.6/14.4/1.1 (05/09 337) [1] Past Medical History: Diagnosis Date Arthritis CAD (coronary artery disease) 3 stents placed COPD (chronic obstructive pulmonary disease) Essential hypertension, benign GERD (gastroesophageal reflux disease) Hyperlipidemia Prostate cancer Vascular disease [2] Past Surgical History: Procedure Laterality Date ARTHROPLASTY [...] ankle CORONARY ARTERY BYPASS GRAFT 3 vessel RADIOGRAPHIC/SURGICAL IMPLANT INDEX jul 2010-november 2010 radioactive seeds implanted prostate [3] Allergies Allergen Reactions Gabapentin [facility] 05-09-2025 History and physical note Hospital Medicine Admission History & Physical Patient: Tristin Powell Sr., : 1940, Date of face to face patient encounter: 05/09/2025 Impression / Plan Acute bronchitis 2/2 rhinovirus CAP Lung abscess vs infected bullae CT chest on 05/04 showing bilateral patchy infiltrates, 10 cm air-fluid collection LLL c/f infected bullae vs abscess. Sputum culture 05/04 grew strep pneumo and pseudomonas, treated w/ doxy and zosyn then changed to cefepime on 05/08. Appears that patient has had improvement in symptoms with this management, although cough is still persistent. No fevers or leukocytosis on arrival to [facility]. - cont breathing treatments q6h - cont cefepime, switch doxy to vanc - Consult Pulmonology,ID in AM re: abx regimen, duration of abx treatment Hemoptysis, non massive Requiring inhaled TXA TID at [facility]. On arrival to [facility] patient only producing pink-tinged sputum, no ileana blood. Remains stable on room air. Hgb at [facility] 10-11. Stable on arrival to [facility] at 10.9 - Hold on further TXA at this time - No indication for IR consult overnight for embolization - CTM - hold rivaroxaban, ASA - if remains stable, improves will need re-started in setting of PAD with recent revasc Transaminitis Unclear etiology - RUQ US ordered - chronic hep battery ordered COPD exacerbation (resolved) No wheezing and good air movement on exam. Has completed prolonged course of prednisone, close to 14 days. - breathing treatments as above Acute hypoxic resp failure - resolved At [facility] requiring o2. Weaned to room air prior to transfer to [facility] - CTM PAD s/ SFA-peroneal bypass 02/2025 Chronic R foot ulcer - wound consulted - rivaroxaban, ASA management as above CAD x7 stents HDL - ASA as above - cont atorvastatin HTN - cont losartan, metop BPH - cont flomax GERD - cont PPI Problem list reviewed at admission. Quality Self-Check Complexity. . Obesity, class I Body mass index is 30.81 kg/m . - Follow with PCP for dietary and lifestyle modifications. Wound Documentation Any conditions listed below are present on admission unless otherwise specified. . DVT prophylaxis with SCD Anticipated Disposition: home once medically ready Code status is full Chief Complaint Hemoptysis History of Presenting Illness Tristin Powell SrNeftali is a 85 y.o. male with a past medical history of CAD x7 stents, PAD s/ SFA-peroneal bypass 02/2025, left metatarsal amputation, chronic R foot ulcer, HTN, HDL, BPH who [facility] a [facility] due [facility] hemoptysis. Patient presented to [facility] on 05/02 due to shortness of breath on exertion, chest congestion, nonproductive cough that had been ongoing for about 10 days. He had been diagnosed with bronchitis about 10 days prior to admission to [facility] and had been taking steroids and breathing treatments without any improvement symptoms. He had presented to his primary care doctor's office on 05/02 where it was noted he was having productive cough with blood streaks and worsening shortness of breath. Given no improvement on management w/ pred and duonebs he was recommended to go to the emergency department by his PCP. On arrival to [facility] ED chest x-ray was notable for hilar vascular congestion, bibasilar linear atelectasis and hyperinflation and was admitted for further evaluation and management. Work up at [facility] was remarkable for (+) rhinovirus and a CT chest on 05/04 showing bilateral patchy infiltrates, 10 cm air-fluid collection LLL c/f infected bullae vs abscess. He was started on treatment with abx for tx of PNA with infected bullae vs lung abscess, prednisone and scheduled duonebs for COPD exacerbation. It appears that he developed significant hemoptysis which led to need for TXA breathing treatments TID. He was evaluated by Pulmonology at [facility] who recommended embolization for management of hemoptysis; procedure not performed by IR there. Transferred to [facility] for further management and consideration of embolization. Upon arrival to [facility] patient is well appearing, on room air. Coughs intermittently during interview. Producing sputum that is pink-tinged; no over blood noted during evaluation. Refers breathing is improved but productive, bloody cough is still persistent. Denies chest pain, v/d/c. History Past Medical History[1] Past Surgical History[2] Social History he reports that he has never smoked. He has never used smokeless tobacco. He reports that he does not drink alcohol and does not use drugs. Family History family history includes Coronary Artery Disease in his maternal grandmother, paternal aunt, paternal grandmother, and paternal uncle; Diabetes in his mother; Myocardial Infarction in his father and mother; No known problems in his daughter, sister, and son; Prostate Cancer in his brother. Medications / Allergies Prior to Admission Medications Prescriptions ASPIRIN 81 PO Sig: Take 81 mg by mouth. Metoprolol 50 MG tab regular release Sig: Take 1 tablet by mouth 2 times daily. Rivaroxaban 20 MG tablet Sig: Take 2.5 mg by mouth 2 times daily. Start in 22 days after the 15mg dose is completed Tamsulosin HCl 0.4 MG capsule Sig: Take 1 capsule by mouth daily. acetaminophen 325 MG tablet Sig: Take 2 tablets by mouth every 4 hours as needed for Mild Pain. albuterol (2.5 MG/3ML) 0.083% inhalation solution Sig: albuterol sulfate 2.5 mg/3 mL (0.083 %) solution for nebulization atorvastatin 40 MG Tab tablet Sig: Take 1 tablet by mouth 2 times daily. Takes 1/2 tab bid atorvastatin 80 MG tablet Sig: Take 1 tablet by mouth daily. celecoxib 200 MG capsule Sig: Take 1 capsule by mouth 2 times daily. Patient not taking: Reported on 01/12/2022 collagenase (Santyl) 250 UNIT/GM Ointment Sig: Apply 1 Application topically daily. To foot wound docusate 100 MG capsule Sig: Take 1 capsule by mouth 2 times daily. Patient not taking: Reported on 01/12/2022 gabapentin 100 MG Cap capsule Sig: Take 3 capsules by mouth 3 times daily. losartan 50 MG tablet Sig: Take 0.5 tablets by mouth daily. methylPREDNIsolone 4 MG Tab Therapy Pack tablet Sig: Take 1 tablet by mouth As directed. follow package directions Patient not taking: Reported on 01/12/2022 metoprolol succinate 50 MG PO tablet XL Sig: Take 1 tablet by mouth 2 times daily. Note (09/01/2011): Takes 50mg BID nitroGLYCERIN 0.4 MG tablet SL Sig: Place 1 tablet under tongue every 5 minutes as needed for Chest pain. max = 3 doses. If CP persists after 1st dose, call 911 omeprazole [address] capsule Sig: Take 1 capsule by mouth daily. oxyCODONE 5 MG tablet Sig: Take 1-2 tabs po q 4-6 hours PRN pain. Wean as tolerated. oxyCODONE-acetaminophen 5-325 MG per tablet Sig: Take 1 tablet by mouth every 8 hours as needed for Severe Pain. polyethylene glycol PO PACK Sig: take 1 Packet by mouth 2 times daily. senna 8.6 MG PO TABS Sig: take 1 Tab by mouth daily. therapeutic multivitamin-minerals tablet Sig: Take 1 tablet by mouth at bedtime. zolpidem 5 MG tablet Sig: Take 2 tablets by mouth At bedtime as needed for Sleep. Facility-Administered Medications: None Allergies[3] Objective Findings BP 186/86 (BP Location: Right arm, BP Position: Lying) Pulse 98 Temp 98.3 F (36.8 C) (Oral) Resp 20 Ht 1.88 m (6' 2 ) Wt 108.9 kg (240 lb) SpO2 99% BMI 30.81 kg/m Smoking Status Never Physical Exam Gen: Alert, Awake, NAD Resp: CTA, normal respiratory effort, persistent coughing with light pink tinged sputum Cardio: RRR, normal S1, S2 GI: S/NT/ND, NABS Neuro: Strength grossly equal in muscle groups of the bilateral UEs and LEs. Psych: Ox3, appropriate affect and cognition Data Review WBC/Hgb/Hct/Plts: 6.41/10.9/33.0/232 (05/09 337) Na/K+/Phos/Mg/Ca: 139/4.2/3.2/2.0/9.1 (05/09 337) Bun/Creat/Cl/CO2/Glucose: 25/0.92/107/22/100 (05/09 337) Ptt/Pt/Inr: 23.6/14.4/1.1 (05/09 337) [1] Past Medical History: Diagnosis Date Arthritis CAD (coronary artery disease) 3 stents placed COPD (chronic obstructive pulmonary disease) Essential hypertension, benign GERD (gastroesophageal reflux disease) Hyperlipidemia Prostate cancer Vascular disease [2] Past Surgical History: Procedure Laterality Date ARTHROPLASTY [...] ankle CORONARY ARTERY BYPASS GRAFT 3 vessel RADIOGRAPHIC/SURGICAL IMPLANT INDEX jul 2010-november 2010 radioactive seeds implanted prostate [3] Allergies Allergen Reactions Gabapentin documented in this encounter [facility] 05-09-2025 History and physical note Hospital Medicine Admission History & Physical Patient: Tristin Powell Sr., : 1940, Date of face to face patient encounter: 05/09/2025 Impression / Plan Acute bronchitis 2/2 rhinovirus CAP Lung abscess vs infected bullae CT chest on 05/04 showing bilateral patchy infiltrates, 10 cm air-fluid collection LLL c/f infected bullae vs abscess. Sputum culture 05/04 grew strep pneumo and pseudomonas, treated w/ doxy and zosyn then changed to cefepime on 05/08. Appears that patient has had improvement in symptoms with this management, although cough is still persistent. No fevers or leukocytosis on arrival to [facility]. - cont breathing treatments q6h - cont cefepime, switch doxy to vanc - Consult Pulmonology,ID in AM re: abx regimen, duration of abx treatment Hemoptysis, non massive Requiring inhaled TXA TID at [facility]. On arrival to [facility] patient only producing pink-tinged sputum, no ileana blood. Remains stable on room air. Hgb at [facility] 10-11. Stable on arrival to [facility] at 10.9 - Hold on further TXA at this time - No indication for IR consult overnight for embolization - CTM - hold rivaroxaban, ASA - if remains stable, improves will need re-started in setting of PAD with recent revasc Transaminitis Unclear etiology - RUQ US ordered - chronic hep battery ordered COPD exacerbation (resolved) No wheezing and good air movement on exam. Has completed prolonged course of prednisone, close to 14 days. - breathing treatments as above Acute hypoxic resp failure - resolved At [facility] requiring o2. Weaned to room air prior to transfer to [facility] - CTM PAD s/ SFA-peroneal bypass 02/2025 Chronic R foot ulcer - wound consulted - rivaroxaban, ASA management as above CAD x7 stents HDL - ASA as above - cont atorvastatin HTN - cont losartan, metop BPH - cont flomax GERD - cont PPI Problem list reviewed at admission. Quality Self-Check Complexity. . Obesity, class I Body mass index is 30.81 kg/m . - Follow with PCP for dietary and lifestyle modifications. Wound Documentation Any conditions listed below are present on admission unless otherwise specified. . DVT prophylaxis with SCD Anticipated Disposition: home once medically ready Code status is full Chief Complaint Hemoptysis History of Presenting Illness Tristin Powell SrNeftali is a 85 y.o. male with a past medical history of CAD x7 stents, PAD s/ SFA-peroneal bypass 02/2025, left metatarsal amputation, chronic R foot ulcer, HTN, HDL, BPH who [facility]. Patient presented to [facility] on 05/02 due to shortness of breath on exertion, chest congestion, nonproductive cough that had been ongoing for about 10 days. He had been diagnosed with bronchitis about 10 days prior to admission to [facility] and had been taking steroids and breathing treatments without any improvement symptoms. He had presented to his primary care doctor's office on 05/02 where it was noted he was having productive cough with blood streaks and worsening shortness of breath. Given no improvement on management w/ pred and duonebs he was recommended to go to the emergency department by his PCP. On arrival to [facility] ED chest x-ray was notable for hilar vascular congestion, bibasilar linear atelectasis and hyperinflation and was admitted for further evaluation and management. Work up at [facility] was remarkable for (+) rhinovirus and a CT chest on 05/04 showing bilateral patchy infiltrates, 10 cm air-fluid collection LLL c/f infected bullae vs abscess. He was started on treatment with abx for tx of PNA with infected bullae vs lung abscess, prednisone and scheduled duonebs for COPD exacerbation. It appears that he developed significant hemoptysis which led to need for TXA breathing treatments TID. He was evaluated by Pulmonology at [facility] who recommended embolization for management of hemoptysis; procedure not performed by IR there. Transferred to [facility] for further management and consideration of embolization. Upon arrival to [facility] patient is well appearing, on room air. Coughs intermittently during interview. Producing sputum that is pink-tinged; no over blood noted during evaluation. Refers breathing is improved but productive, bloody cough is still persistent. Denies chest pain, v/d/c. History Past Medical History[1] Past Surgical History[2] Social History he reports that he has never smoked. He has never used smokeless tobacco. He reports that he does not drink alcohol and does not use drugs. Family History family history includes Coronary Artery Disease in his maternal grandmother, paternal aunt, paternal grandmother, and paternal uncle; Diabetes in his mother; Myocardial Infarction in his father and mother; No known problems in his daughter, sister, and son; Prostate Cancer in his brother. Medications / Allergies Prior to Admission Medications Prescriptions ASPIRIN 81 PO Sig: Take 81 mg by mouth. Metoprolol 50 MG tab regular release Sig: Take 1 tablet by mouth 2 times daily. Rivaroxaban 20 MG tablet Sig: Take 2.5 mg by mouth 2 times daily. Start in 22 days after the 15mg dose is completed Tamsulosin HCl 0.4 MG capsule Sig: Take 1 capsule by mouth daily. acetaminophen 325 MG tablet Sig: Take 2 tablets by mouth every 4 hours as needed for Mild Pain. albuterol (2.5 MG/3ML) 0.083% inhalation solution Sig: albuterol sulfate 2.5 mg/3 mL (0.083 %) solution for nebulization atorvastatin 40 MG Tab tablet Sig: Take 1 tablet by mouth 2 times daily. Takes 1/2 tab bid atorvastatin 80 MG tablet Sig: Take 1 tablet by mouth daily. celecoxib 200 MG capsule Sig: Take 1 capsule by mouth 2 times daily. Patient not taking: Reported on 01/12/2022 collagenase (Santyl) 250 UNIT/GM Ointment Sig: Apply 1 Application topically daily. To foot wound docusate 100 MG capsule Sig: Take 1 capsule by mouth 2 times daily. Patient not taking: Reported on 01/12/2022 gabapentin 100 MG Cap capsule Sig: Take 3 capsules by mouth 3 times daily. losartan 50 MG tablet Sig: Take 0.5 tablets by mouth daily. methylPREDNIsolone 4 MG Tab Therapy Pack tablet Sig: Take 1 tablet by mouth As directed. follow package directions Patient not taking: Reported on 01/12/2022 metoprolol succinate 50 MG PO tablet XL Sig: Take 1 tablet by mouth 2 times daily. Note (09/01/2011): Takes 50mg BID nitroGLYCERIN 0.4 MG tablet SL Sig: Place 1 tablet under tongue every 5 minutes as needed for Chest pain. max = 3 doses. If CP persists after 1st dose, call 911 omeprazole [address] capsule Sig: Take 1 capsule by mouth daily. oxyCODONE 5 MG tablet Sig: Take 1-2 tabs po q 4-6 hours PRN pain. Wean as tolerated. oxyCODONE-acetaminophen 5-325 MG per tablet Sig: Take 1 tablet by mouth every 8 hours as needed for Severe Pain. polyethylene glycol PO PACK Sig: take 1 Packet by mouth 2 times daily. senna 8.6 MG PO TABS Sig: take 1 Tab by mouth daily. therapeutic multivitamin-minerals tablet Sig: Take 1 tablet by mouth at bedtime. zolpidem 5 MG tablet Sig: Take 2 tablets by mouth At bedtime as needed for Sleep. Facility-Administered Medications: None Allergies[3] Objective Findings BP 186/86 (BP Location: Right arm, BP Position: Lying) Pulse 98 Temp 98.3 F (36.8 C) (Oral) Resp 20 Ht 1.88 m (6' 2 ) Wt 108.9 kg (240 lb) SpO2 99% BMI 30.81 kg/m Smoking Status Never Physical Exam Gen: Alert, Awake, NAD Resp: CTA, normal respiratory effort, persistent coughing with light pink tinged sputum Cardio: RRR, normal S1, S2 GI: S/NT/ND, NABS Neuro: Strength grossly equal in muscle groups of the bilateral UEs and LEs. Psych: Ox3, appropriate affect and cognition Data Review WBC/Hgb/Hct/Plts: 6.41/10.9/33.0/232 (05/09 337) Na/K+/Phos/Mg/Ca: 139/4.2/3.2/2.0/9.1 (05/09 337) Bun/Creat/Cl/CO2/Glucose: 25/0.92/107/22/100 (05/09 337) Ptt/Pt/Inr: 23.6/14.4/1.1 (05/09 337) [1] Past Medical History: Diagnosis Date Arthritis CAD (coronary artery disease) 3 stents placed COPD (chronic obstructive pulmonary disease) Essential hypertension, benign GERD (gastroesophageal reflux disease) Hyperlipidemia Prostate cancer Vascular disease [2] Past Surgical History: Procedure Laterality Date ARTHROPLASTY [...] ankle CORONARY ARTERY BYPASS GRAFT 3 vessel RADIOGRAPHIC/SURGICAL IMPLANT INDEX jul 2010-november 2010 radioactive seeds implanted prostate [3] Allergies Allergen Reactions Gabapentin documented in this encounter [facility] 09-05-2025 History of Present illness Narrative Images from the original note were not included. Subjective Patient ID: Tristin Powell is a 85 y.o. male who presents for [facility] ER follow up. Flowsheet Row Patient Outreach from 05/01/2025 in [facility] with Elaine Saab [facility] [employer] Information ED, Hospital or Long Term Facility Discharge? ED Patient has been contacted within 2 days of being seen in the ED Yes Diagnosis Acute bronchitis, mild COPD exacerbation Discharge Date 04/30/25 Discharged To: Home [facility]charge [facility] Engagement Call Start Time 1124 Admission Date 04/30/25 Medications Discharge medications reviewed and reconciled from hospital? No [Pt hangs up before reveiew can be done (coughing)] Does the patient have all medications ordered at discharge? Yes Medication Comments started on Prednisone. Appointments Does the patient have a primary care provider? Yes [05/02] Does the patient have any upcoming specialty appointments? No Self Management Does patient have home health? no Patient Teaching Does the patient have access to their discharge instructions? Yes What is the patient's perception of their health status since discharge? Worsening Is the patient/caregiver able to teach back the hierarchy of who to call/visit for symptoms/problems? PCP, Specialist, Home Health nurse, Urgent Care, ED, 911 Yes Wrap Up Wrap Up Additional Comments Presented to ER with 4 day persistant cough. Labs, CXR. Showed improvment after breathing treatment and prednisone. Call End Time 1128 Pt is here today with his brother and they both feel patient is doing worse. He is coughing up blood/yellow phelgm, head hurts when he coughs, chest hurts from coughing, wheezing, SOB. States he stopped taking the Augmentin and Bactrim d/t he felt he was having a s/e of not being able to urinate. States he had been taking them for approximately 30 days. States he was walking to his car to come to his appointment he had to stop due to shortness of breath. Had to take a Nitroglycerin and use his inhaler. Had his brother bring him in to the office today in a wheelchair because he did not think he could walk in on his own. Over the past 2 weeks, how often have you been bothered by any of the following problems? Little interest or pleasure in doing things: Not at all Feeling down, depressed, or hopeless: Not at all Patient Health Questionnaire-2 Score: 0 Current Outpatient Medications on File Prior to Visit Medication Sig Dispense Refill Santyl 250 UNIT/GM ointment Apply 1 application topically Daily albuterol HFA 90 mcg/act inhaler Inhale 1 puff every 4 (four) hours if needed for wheezing or shortness of breath 76.5 Unspecified 3 amoxicillin-clavulanate (Augmentin) 500-125 MG tablet Take 500 mg by mouth in the morning and 500 mg before bedtime. (Patient not taking: Reported on 05/02/2025) aspirin 81 MG EC tablet Take 81 mg by mouth in the morning. atorvastatin (Lipitor) 80 MG tablet Azelastine HCl 137 MCG/SPRAY solution Administer 1 spray into affected nostril(s) in the morning and 1 spray before bedtime. Do all this for 14 days. 90 mL 3 azithromycin (Zithromax) 250 MG tablet Take 2 tablets (500 mg) by mouth Daily for 1 day, THEN 1 tablet (250 mg) Daily for 4 days. (Patient not taking: No sig reported) 6 tablet 0 fluticasone (Flonase) 50 MCG/ACT nasal spray [...] 3 metoprolol tartrate (Lopressor) 50 MG tablet TAKE 1 TABLET IN THE MORNING AND 1 TABLET BEFORE BEDTIME. 180 tablet 3 nitroglycerin (Nitrostat) 0.[address] 1 tablet (0.4 mg) under the tongue every 5 (five) minutes if needed for chest pain 90 tablet 1 omeprazole (PriLOSEC) [address] capsule TAKE 1 CAPSULE EVERY DAY 90 capsule 3 [] ondansetron (Zofran) 4 MG tablet Take 1 tablet (4 mg) by mouth every 8 (eight) hours if needed for nausea or vomiting for up to 7 days 20 tablet 0 oxyCODONE-acetaminophen (Percocet) 5-325 MG tablet Take 1 tablet by mouth every 6 (six) hours if needed for severe pain or moderate pain 120 tablet 0 predniSONE (Deltasone) 20 MG tablet rivaroxaban (Xarelto) 2.5 MG tablet TAKE 1 TABLET TWICE DAILY 180 tablet 3 sulfamethoxazole-trimethoprim (Bactrim) 400-80 MG tablet Take 1 tablet by mouth every 12 (twelve) hours (Patient not taking: Reported on 05/02/2025) tamsulosin (Flomax) 0.4 MG 24 hr capsule Take 1 capsule (0.4 mg) by mouth in the morning and 1 capsule (0.4 mg) before bedtime. 200 capsule 0 zolpidem (Ambien) 10 MG tablet Take 1 tablet (10 mg) by mouth as needed at bedtime for sleep 30 tablet 5 [DISCONTINUED] metoprolol tartrate (Lopressor) 50 MG tablet Take 1 tablet (50 mg) by mouth in the morning and 1 tablet (50 mg) before bedtime. 180 tablet 3 No current facility-administered medications on [...] Carotid artery disease Cataract 2014 Cellulitis 01/19/2022 [facility] Cellulitis LLE Colon polyps 2012 Critical lower limb ischemia ([facility]) 09/04/2018 Last Assessment & Plan: Pt [...] Failure - [facility] History of being hospitalized [place] - [facility] 07/15/2021-07/16/2021 History of coronary angiogram [...] (HCC) 10/2016 Preinfarcation syndrome, CABGx3 Prostate cancer ([facility]) 2009 SOB (shortness of breath) Unstable angina ([facility]) 2014 XR 06/18/2019 XR shows impingement [...] incomplete bowel prep Diverticulosis Dr. Rowe at [facility] COLONOSCOPY W/ POLYPECTOMY 2011 CORONARY ARTERY [...] HISTORY 04/25/2022 Diagnostic LE catheterization Dr. Hahn [place] MEDICATION MANAGEMENT 11/2020 Multi resistant Strep Pneumonia, susceptible Levaquin PROSTATE BIOPSY 2009 TOTAL HIP ARTHROPLASTY 07/15/2021 Direct anterior right total hip arthroplasty, periarticular injection, right hip fluoroscopy XA SPECIAL ANGIOGRAPHY PROCEDURE Bilateral 10/12/2023 Dr. Sanchez Visit Vitals BP 132/72 Pulse 81 Temp 98.6 F Resp 20 Ht 6' 2 Wt 247 lb 3.2 oz SpO2 93% BMI 31.74 kg/m Smoking Status Never BSA 2.42 m Review of Systems Constitutional: Positive for fatigue. Negative for chills and fever. Respiratory: Positive for cough, shortness of breath and wheezing. Cardiovascular: Negative for chest pain, palpitations and leg swelling. Gastrointestinal: Negative for abdominal pain, constipation, diarrhea, nausea and vomiting. Skin: Negative for rash. Objective Physical Exam Constitutional: General: He is not in acute distress. Appearance: He is ill-appearing. HENT: Head: Normocephalic and atraumatic. Eyes: General: No scleral icterus. Cardiovascular: Rate and Rhythm: Normal rate and regular rhythm. Heart sounds: No murmur heard. Pulmonary: Effort: No respiratory distress. Breath sounds: Decreased air movement present. Examination of the right-upper field reveals wheezing. Examination of the left-upper field reveals wheezing. Examination of the right-middle field reveals wheezing and rhonchi. Examination of the left-middle field reveals wheezing. Examination of the right-lower field reveals wheezing and rhonchi. Examination of the left-lower field reveals wheezing and rhonchi. Wheezing and rhonchi present. No rales. Comments: Patient had to stop mid-sentence frequently due to cough. Cough is very moist, paroxysmal. Pt having pain with deep breaths. Musculoskeletal: General: No swelling. Skin: General: Skin is warm and dry. Neurological: General: No focal deficit present. Mental Status: He is alert and oriented to person, place, and time. Gait: Gait abnormal (Using wheelchair). Psychiatric: Mood and Affect: Mood normal. Behavior: Behavior normal. Assessment/Plan Diagnoses and all orders for this visit: Hemoptysis Pt is on an anticoagulant and having hemoptysis. Having significant LAM. He stopped all three antibiotics he was having due to anuria. Is starting to urinate normally now. Hi suspicion for pneumonia based on exam today. Rhonchi Patient needs more work up than we are able to do in our office. He agrees that he needs to be in a hospital and agrees to go back to [facility] for further evaluation. His brother will take him directly. Follow up for ER follow up. documented in this encounter [facility] 04-29-2025 Telephone encounter Note Metoprolol sent. [facility] 04-29-2025 Miscellaneous Notes Metoprolol sent. documented in this encounter [facility] 04-23-2025 Note I saw Mr. Powell in of fice today for a follow-up visit. He is [...] wound care under the care of a quality improvement engineer. He is on his ASA, xarelto and [...] AUTHENTICATED BY MOHSEN SARABIA, ON 04/23/2025 15:06:32 [facility] 04-23-2025 History of Present illness Narrative I [...] wound care under the care of a quality improvement engineer. He is on his ASA, xarelto and [...] close to home. documented in this encounter [facility] 04-21-2025 Telephone encounter Note Patient requests Zofran refilled [facility] 04-21-2025 Miscellaneous Notes Patient requests Zofran refilled documented in this encounter [facility] 04-14-2025 History of Present illness Narrative [...] Carotid artery disease Cataract 2014 Cellulitis 01/19/2022 [facility] Cellulitis LLE Colon polyps 2012 Critical lower limb ischemia ([facility]) 09/04/2018 Last Assessment & Plan: Pt s/p LLE angiogram with Dr Hahn who feels that the pt has no further endovascular options. He has consulted Dr. Sarabia for a possible tibial bypass. Pt s/p LLE critical limb ischemia [place] class 4 rest pain with distal discoloration to his toes Gangrene of left foot ([facility]) 10/04/2018 Groin hematoma 2014 RT Femoral groin Hematoma H/O myocardial perfusion scan 07/09/2019 LVEF 56% Myocardial perfusion imaging shows a defect in Apical wall Herpes zoster 09/04/2011 History of being hospitalized 12/06/2020 Strep Pneumonia, Resp. Failure - [facility] History of being hospitalized [place] [facility] 07/15/2021-07/16/2021 History of coronary angiogram [...] (HCC) 10/2016 Preinfarcation syndrome, CABGx3 Prostate cancer ([facility]) 2009 SOB (shortness of breath) Unstable angina ([facility]) 2014 XR 06/18/2019 XR shows impingement [...] incomplete bowel prep Diverticulosis Dr. Rowe at [facility] COLONOSCOPY W/ POLYPECTOMY 2011 CORONARY ARTERY [...] HISTORY 04/25/2022 Diagnostic LE catheterization Dr. Hahn [place] MEDICATION MANAGEMENT 11/2020 Multi resistant Strep Pneumonia, [...] follow-ups on file. documented in this encounter [facility] 04-09-2025 Telephone encounter Note The incorrect test was run through [facility]. They said they did not receive the order electronically and then entered in the wrong test. They will fax a correction form that I have to sign, then the correct test will be run. She stated he will only be charged for the test that I ordered, not the add on that they ran in error. Spoke with Deena at [facility]. [facility] 04-09-2025 Miscellaneous Notes The incorrect test [...] ran in error. Spoke with Deena at [facility]. documented in this encounter [facility] 04-08-2025 History of Present illness Narrative [...] surgery his toe was blue and last Monday his toenail came off. He also has discoloration in his 3rd toenail also. States he feels it is improving since the toenail came off. States Mohsen Cornell did see his toe, but the toenail [...] Carotid artery disease Cataract 2014 Cellulitis 01/19/2022 [facility] Cellulitis LLE Colon polyps 2012 Critical lower limb ischemia ([facility]) 09/04/2018 Last Assessment & Plan: Pt s/p LLE angiogram with Dr Hahn who feels that the pt has no further endovascular options. He has consulted Dr. Sarabia for a possible tibial bypass. Pt s/p LLE critical limb ischemia [place] class 4 rest pain with distal discoloration to his toes Gangrene of left foot ([facility]) 10/04/2018 Groin hematoma 2014 RT Femoral groin Hematoma H/O myocardial perfusion scan 07/09/2019 LVEF 56% Myocardial perfusion imaging shows a defect in Apical wall Herpes zoster 09/04/2011 History of being hospitalized 12/06/2020 Strep Pneumonia, Resp. Failure - [facility] History of being hospitalized [place] [facility] 07/15/2021-07/16/2021 History of coronary angiogram [...] incomplete bowel prep Diverticulosis Dr. Rowe at [facility] COLONOSCOPY W/ POLYPECTOMY 2011 CORONARY ARTERY [...] HISTORY 04/25/2022 Diagnostic LE catheterization Dr. Hahn [place] MEDICATION MANAGEMENT 11/2020 Multi resistant Strep Pneumonia, [...] Medication Follow Up. documented in this encounter [facility] 04-02-2025 Note I saw Mr. Powell [...] AUTHENTICATED BY MOHSEN SARABIA, ON 04/02/2025 12:15:56 [facility] 04-02-2025 History of Present illness Narrative I [...] care and OMT. documented in this encounter [facility] 03-31-2025 History of Present illness [...] getting better. Hospital Information ED, Hospital or Long Term Facility Discharge? Hospital Patient has been contacted within two business days of discharge Yes Diagnosis claudication, rightleg pain, PAD Discharge Date 03/21/25 Discharged To: Home Setting Discharge Hospital [facility] Engagement Call Start Time 1226 Admission [...] yes What is the home health agency? [facility] Has home health visited the patient [...] had recent balloon angioplasty 03/12/2025,. presented to [facility] ED on 03/14/2025 from Vascular Surgery clinic [...] Carotid artery disease Cataract 2014 Cellulitis 01/19/2022 [facility] Cellulitis LLE Colon polyps 2012 Critical lower limb ischemia ([facility]) 09/04/2018 Last Assessment & Plan: Pt s/p LLE angiogram with Dr Hahn who feels that the pt has no further endovascular options. He has consulted Dr. Sarabia for a possible tibial bypass. Pt s/p LLE critical limb ischemia [place]ann class 4 rest pain with distal discoloration to his toes Gangrene of left foot ([facility]) 10/04/2018 Groin hematoma 2013 RT Femoral groin Hematoma H/O myocardial perfusion scan 07/09/2019 LVEF 56% Myocardial perfusion imaging shows a defect in Apical wall Herpes zoster 09/04/2011 History of being hospitalized 12/06/2020 Strep Pneumonia, Resp. Failure - [facility] History of being hospitalized [place] [facility] 07/15/2021-07/16/2021 History of coronary angiogram [...] incomplete bowel prep Diverticulosis Dr. Rowe at [facility] COLONOSCOPY W/ POLYPECTOMY 2011 CORONARY ARTERY [...] HISTORY 04/25/2022 Diagnostic LE catheterization Dr. Hahn [place] MEDICATION MANAGEMENT 11/2020 Multi resistant Strep Pneumonia, [...] for this patient. documented in this encounter [facility] 03-21-2025 History of Present illness Narrative Spiritual Care Progress Note Completed by: Froylan Higgins Person(s) Present During this Visit: Patient Time Spent in Direct Patient Care: 30 Narrative: This Advanced Manufacturing Engineer visited Tristin while rounding. Pt identifies as druze and finds hope/support in family. Advanced Manufacturing Engineer provided empathetic listening with supportive presence and compassionate care. Pt shared a narrative of illness and some life experiences. Pt expressed gratitude for supervisor type disk quality control's support and visit. Pt was informed about 20/03 availability of the Chaplains, and how to contact. Pastoral Care Team will remain available to provide emotional and spiritual care support PRN. Patients Response to Pastoral Care: Expressed Gratitude for Visit, Appeared to be well-engaged Planning for Future Visits: PRN Patient's Spiritual Needs Assessment 03/21/25 1600 Visit Background Visit With Patient Visit By Staff Advanced Manufacturing Engineer Visit Progression Introduction Visit Requested By Advanced Manufacturing Engineer Initiated Visit Source Advanced Manufacturing Engineer Initiated Visit Type Inpatient;Rounding Visit Circumstances and Events Routine Visit Visit Length (minutes) 30 Patient's Response to Pastoral Care Expressed Gratitude for Visit;Appeared to be well-engaged Visit Planning PRN Spiritual Assessment Assessed during this visit Rastafari Assessment Assessed during this visit Family assessment provided? Unable to asess during this visit Patient Spiritual Needs Assessment Sources of Connection Son;Daughter;Other (see comment) (family) Belief Practices Attends Rastafari Services Image of the Divine Answers Prayer;Comforter;Creator;Healer; [...] of Care Focus on Wellness;Receive Comfort Patient Rastafari Needs Assessment Rastafari Connection Attends as Often as Able Rastafari Home Orthodoxy Zoroastrianism Connection Non-Zoroastrianism Place of Evangelical - Name Life of Riky Rastafari Resources Hope/Trust in God;Prayer Rastafari Rituals [place];Prayer Expressed Outcome Expressed Gratitude;Expressed Hope Rev. Froylan Higgins MBA., Josephine, M.Div Staff Advanced Manufacturing Engineer, Pastoral Care [place] [phone] Physical Therapy PHYSICAL THERAPY TREATMENT NOTE Skilled Therapy Needs After Discharge Anticipate Resolution of Current Assessment Limitations Including: Pain, Mechanical Barriers Are wire stretcher Therapy Services Needed After Discharge: Yes Intensity of wire stretcher Therapy: Up to 5 days per week Anticipated Duration of wire stretcher Therapy: Duration 7 - 10 days PT [...] - Static: Contact guard assist, with device Financial Reserve Clerk - Standing Static: wheeled walker Standing Balance - Dynamic: Contact guard assist, with device Financial Reserve Clerk - Standing Dynamic: wheeled walker Skilled Intervention [...] (Seated EOB post session with nursing notified) Financial Reserve Clerk: bedrails, bed positioning mechanics Skilled Intervention Provided: [...] Lateral Transfers: Contact guard assist, Minimal assist Financial Reserve Clerk: wheeled walker Skilled Intervention Provided: verbal cues, [...] secondary impairment(s) Car Transfers: Contact guard assist Financial Reserve Clerk: wheeled walker Skilled Intervention Provided: verbal cues, [...] walker.) Prior Level of Function Level of Wells - Transfers/Ambulation/Mobility: Independent with functional transfers Level of Wells - ADLs: Independent Level of Wells - Homemaking: Independent Driving: Patient drives Vocational: [...] of : 1940 Discharge Plan: D/C Disposition: Long Term Facility Related to Current Admission?: Yes Plan A: Home Health Care Services Plan B: Home Discharging Transportation Plan: Transportation Type: Auto Discharge Plan Status: home vs SNF CM following for dc needs. Chart reviewed, patient last able to work with therapy 03/20, current recs are up to 5 with ampac of 19. Patient originally wanted to go home with [facility]. After discussion with attending physician, now open to snf placement. Patient walking 20 feet. Will obtain choices and send referrals. Patient will need precert once med ready. Patient nearing med readiness. If unable to secure SNF will plan for home going plan with [facility], will place hub order for therapy. Will continue to follow as patient progresses medically. Addendum [phone]: hub order placed for [facility] therapy. One accepted, likely plan for discharge later today once hhc accepted. Addendum 1551: patient now wanting OP therapy. Order placed, and updated liaison to cancel hhc order. Patient now med ready for discharge. Assessment and Background Information: Physical Therapy PHYSICAL THERAPY TREATMENT NOTE Skilled Therapy Needs After Discharge Anticipate Resolution of Current Assessment Limitations Including: Pain, Mechanical Barriers Are wire stretcher Therapy Services Needed After Discharge: Yes Intensity of wire stretcher Therapy: Up to 5 days per week Anticipated Duration of wire stretcher Therapy: Duration 7 - 10 days PT [...] - Static: Contact guard assist, Minimal assist Financial Reserve Clerk - Standing Static: wheeled walker Standing Balance - Dynamic: Contact guard assist, Minimal assist Financial Reserve Clerk - Standing Dynamic: wheeled walker Skilled Intervention [...] to Supine: (Pt ended session in recliner) Financial Reserve Clerk: bedrails, bed positioning mechanics Transfers Sit to Stand: Moderate assist, 2 person assist (x1 from bed, x1 from toilet, x1 from recliner) Stand Pivot Transfers: Minimal assist Financial Reserve Clerk: wheeled walker Skilled Intervention Provided: verbal cues, [...] walker.) Prior Level of Function Level of Wells - Transfers/Ambulation/Mobility: Independent with functional transfers Level of Wells - ADLs: Independent Level of Wells - Homemaking: Independent Driving: Patient drives Vocational: Retired Leisure: Pt reported, enjoys [employer]. For complete objective data, detailed plan of [...] Lopez PT at 03/21/2025 12:32 PM EDT [facility] Inpatient Progress Note 03/20/2025 Tristin Powell 1940 [id number] Assessment/Plan: Tristin Powell is a 85 y.o. male with a history of Peripheral Artery Disease s/p Bypass, Afib (Xarelto), Diastolic Heart Failure, Coronary Artery Disease s/p CABG, recent balloon angioplasty 03/12/2025,. presented to [facility] ED on 03/14/2025 from Vascular Surgery clinic with intractable right foot pain. Found to have critical right LE ischemia Critical right lower limb ischemia: History of PAD. Follows Dr. Beaver ([facility] Surgery) and Dr. Sarabia (Vascular Surgery) [...] S/p IV pain meds. CAD: Followed by [facility] Cardiology s/p 3 vessel coronary artery bypass [...] xarelto Medication Reconciliation: Reviewed using patient interview, auto brake technician Current living situation: home Expected Disposition: [...] major joint deformity: RLE tired leg and dry house tender to touch. Moving well with mild [...] left TMA who presented to [facility] on 03/14/2025 with worsening RLE pain and [...] TREV COLEMAN MD General Surgery Resident, PGY-1 [facility] Please contact surgical project management intern licensed occupational therapist 5PM-6AM and weekends - #[phone] VTS Pager - #[phone] Subjective NAEO. Has been ambulating. New bruising [...] IMAGING/LABS Interval imaging and laboratory results reviewed [facility] Inpatient Progress Note 03/19/2025 Tristin Powell 1940 [id number] Assessment/Plan: Tristin Powell is a 85 y.o. male with a history of Peripheral Artery Disease s/p Bypass, Afib (Xarelto), Diastolic Heart Failure, Coronary Artery Disease s/p CABG, recent balloon angioplasty 03/12/2025,. presented to [facility] ED on 03/14/2025 from Vascular Surgery clinic with intractable right foot pain. Found to have critical right LE ischemia Critical right lower limb ischemia: History of PAD. Follows Dr. Beaver ([facility] Surgery) and Dr. Sarabia (Vascular Surgery) [...] added, wean as able. CAD: Followed by [facility] Cardiology s/p 3 vessel coronary artery bypass [...] xarelto Medication Reconciliation: Reviewed using patient interview, auto brake technician Current living situation: home Expected Disposition: PT/OT rec up to 5 pt requesting home with [facility], SW following. Estimated discharge date: ~03/20/2025 [...] major joint deformity: RLE tired leg and dry house tender to touch. Moving well with mild [...] left TMA who presented to [facility] on 03/14/2025 with worsening RLE pain and [...] TREV COLEMAN MD General Surgery Resident, PGY-1 [facility] Please contact surgical project management intern licensed occupational therapist 5PM-6AM and weekends - #[phone] VTS Pager - #[phone] Subjective NAEO. Was able to get up [...] Limitations Including: Mechanical Barriers, Social Support Are wire stretcher Therapy Services Needed After Discharge: Yes Intensity of wire stretcher Therapy: Up to 5 days per week Anticipated Duration of wire stretcher Therapy: Duration 10 - 30 days PT [...] Supine: Minimal assist, Head of bed flat Financial Reserve Clerk: bedrails, patient slide sheet / friction-reducing device, [...] walker.) Prior Level of Function Level of Wells - Transfers/Ambulation/Mobility: Independent with community ambulation, Independent with household ambulation, Independent with functional transfers Level of Wells - ADLs: Independent Level of Wells - Homemaking: Independent Driving: Patient drives Vocational: [...] Arthritis Avascular necrosis of bone of hip ([facility]) Claudication COPD (chronic obstructive pulmonary disease) ([facility]) Coronary artery disease Herpes zoster Hyperlipidemia Hypertension PAD (peripheral artery disease) ([facility]) 01/21/2022 Posterior tibial tendinitis of right leg 11/07/2022 Prostate cancer ([facility]) Vascular disease Past Surgical History: Procedure Laterality Date 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/08/2018 Procedure: LEFT MIDFOOT AMPUTATION; Surgeon: Flynn Mann DPM; Location: [facility] OR; Service: Podiatry ANKLE SURGERY Left BYPASS FEMOROTIBIAL REPAIR/GRAFT Right 03/17/2025 Procedure: RIGHT FEMORAL TO TIBIAL BYPASS WITH ARM VEIN. Angiogram; Surgeon: Mohsen Sarabia MD; Location: [facility] NEURO OR; Service: Gen-Vascular; Laterality: Right; BYPASS PERONEAL FEMORAL Right 09/07/2018 Procedure: BYPASS PERONEAL FEMORAL, RIGHT SAPHENOUS VEIN HARVEST, COMPLETION ANGIOGRAM; Surgeon: Mohsen Sarabia MD; Location: [facility] OR; Service: Cardiovascular CARDIAC CATHETERIZATION Left 09/05/2018 Procedure: Angio Lower Extremity; Surgeon: Ben Hahn MD; Location: [facility] VENEREAL DISEASE CONTROL HEAD; Service: Cardiovascular CARDIAC SURGERY 2017 triple bypass EGD N/A 10/10/2018 Procedure: ESOPHAGOGASTRODUODENOSCOPY; Surgeon: Ben Jensen MD; Location: [facility] [place]; Service: Gastroenterology EYE SURGERY Right 2015 [...] hospital or completion of Physical Therapy Plan. [employer] Inpatient Progress Note 03/18/2025 Tristin Powell 1940 [id number] Assessment/Plan: Tristin Powell is a 85 y.o. male with a history of Peripheral Artery Disease s/p Bypass, Afib (Xarelto), Diastolic Heart Failure, Coronary Artery Disease s/p CABG, recent balloon angioplasty 03/12/2025,. presented to [facility] ED on 03/14/2025 from Vascular Surgery clinic with intractable right foot pain. Found to have critical right LE ischemia Critical right lower limb ischemia: History of PAD. Follows Dr. Beaver ([facility] Surgery) and Dr. Sarabia (Vascular Surgery) [...] dose. IV Dilaudid added. CAD: Followed by [facility] Cardiology s/p 3 vessel coronary artery bypass [...] per Medication Reconciliation: Reviewed using patient interview, auto brake technician Current living situation: home Expected Disposition: [...] major joint deformity: RLE tired leg and dry house tender to touch. Moving well with mild [...] PAD, s/p left fem to peroneal bypass (Cornell Borges), left TMA who presented to [facility] on 03/14/2025 with worsening RLE pain and [...] TREV COLEMAN MD General Surgery Resident, PGY-2 [facility] Please contact surgical project management intern licensed occupational therapist 5PM-6AM and weekends - #[phone] VTS Pager - #[phone] Subjective NAEO. Feels good this morning. Wants [...] PAD, s/p left fem to peroneal bypass (Cornell Borges), left TMA who presented to [facility] on 03/14/2025 with worsening RLE pain and [...] Walker MD General Surgery Please contact surgical project management intern licensed occupational therapist 5PM-6AM and weekends VTS Pager - #[phone] SUBJECTIVE Patient is resting in bed with [...] pending at this time. Pt agreeable to [facility] if recommended and has no agency preference. Per Vasc Surg, pt scheduled for OR today for LLE fem-tib bypass today. Continuing to follow as medical plan evolves. Assessment and Background Information: [facility] Inpatient Progress Note 03/17/2025 Tristin Powell 1940 [id number] Assessment/Plan: Tristin Powell is a 85 y.o. male with a history of Peripheral Artery Disease s/p Bypass, Afib (Xarelto), Diastolic Heart Failure, Coronary Artery Disease s/p CABG, recent balloon angioplasty 03/12/2025,. presented to [facility] ED on 03/14/2025 from Vascular Surgery clinic with intractable right foot pain. Found to have critical right LE ischemia Critical right lower limb ischemia: History of PAD. Follows Dr. Beaver ([facility]ascular Surgery) and Dr. Sarabia (Vascular Surgery) [...] dose. IV Dilaudid added. CAD: Followed by [facility] Cardiology s/p 3 vessel coronary artery bypass [...] per Medication Reconciliation: Reviewed using patient interview, auto brake technician Current living situation: home Expected Disposition: [...] major joint deformity: RLE tired leg and dry house tender to touch. Moving well with mild [...] provided by [facility] staff. Obtain from [facility], nursing to place VASCULAR SURGERY PROGRESS NOTE [...] left TMA who presented to [facility] on 03/14/2025 with worsening RLE pain and [...] Beena Barraza MD General Surgery Resident, PGY-2 [facility] Please contact surgical project management intern licensed occupational therapist 5PM-6AM and weekends - #[phone] VTS Pager - #[phone] Subjective NAEO. Is ready for surgery tomorrow, [...] and rubor. He had undergone angiography in [place], with chronic occlusion of an aneurysm/ectatic right [...] for bypass operation as the best option. [facility] Inpatient Progress Note 03/16/2025 Tristin Powell 1940 [id number] Assessment/Plan: Tristin Powell is a 85 y.o. male with a history of Peripheral Artery Disease s/p Bypass, Afib (Xarelto), Diastolic Heart Failure, Coronary Artery Disease s/p CABG, Hypertension, CKD III, COPD, Prostate Cancer, and Insomnia. Patient had outpatient angiogram 03/12/25 with balloon angioplasty. He presented to [facility] ED on 03/14/2025 from Vascular Surgery clinic with intractable right foot pain. In ED: right YAMILE 0.5; 50-99% stenosis in right mid superficial femoral artery; WBC 3.5. Course prolonged due to need for angiogram and Xarelto washout. Peripheral Artery Disease: Followed by Dr. Beaver ([facility]ascular Surgery) and Dr. Sarabia (Vascular Surgery) [...] additional for acute pain. CAD: Followed by [facility] Cardiology s/p 3 vessel coronary artery bypass [...] GTT Medication Reconciliation: Reviewed using patient interview, auto brake technician Current living situation: home Expected Disposition: [...] major joint deformity: RLE tired leg and dry house tender to touch. Moving well with mild [...] 03/16/25 0907 03/14/25 1128 INR 1.1 1.1 [employer] Inpatient Progress Note 03/15/2025 Tristin Powell 1940 [id number] Assessment/Plan: Tristin Powell is a 85 y.o. male with a history of Peripheral Artery Disease s/p Bypass, Afib (Xarelto), Diastolic Heart Failure, Coronary Artery Disease s/p CABG, Hypertension, CKD III, COPD, Prostate Cancer, and Insomnia. Patient had outpatient angiogram 03/12/25 with balloon angioplasty. He presented to [facility] ED on 03/14/2025 from Vascular Surgery clinic with intractable right foot pain. In ED: right YAMILE 0.5; 50-99% stenosis in right mid superficial femoral artery; WBC 3.5. Course prolonged due to need for angiogram and Xarelto washout. Peripheral Artery Disease: Followed by Dr. Beaver ([facility]ascular Surgery) and Dr. Sarabia (Vascular Surgery) [...] additional for acute pain. CAD: Followed by [facility] Cardiology s/p 3 vessel coronary artery bypass [...] GTT Medication Reconciliation: Reviewed using patient interview, auto brake technician Current living situation: home Expected Disposition: [...] major joint deformity: RLE tired leg and dry house tender to touch. Moving well with mild [...] Vascular Cardiology Inpatient Follow-up Heart & Vascular [facility] 03/15/2025 Mirna Fenton CNP [facility] Patient: Tristin Powell Date of : 1940 (85 y.o.) PCP: Flash Lovelace MD Assessment/Plan: Carotid stenosis, asymptomatic, bilateral Assessment & Plan Asymptomatic. No hx of CVA Non-invasive Studies: Carotid Duplex (04/2024): Left ICA with mild <50% stenosis of heterogenous plaque. Right ICA with moderate 50-69% stenosis of heterogenous plaque Coronary artery disease involving coronary bypass graft of [place] heart without angina pectoris Assessment & Plan [...] Recently underwent RLE angio on 03/12/25 via [facility] in [place] Non-invasive Studies: RLE arterial duplex (03/14/25): 50-99% [...] RLE angiograms dated 03/12/25 and 10/12/23 from [facility]. Plan for RLE angio +/- [...] Final Result by Interface, Lab Results In [place] Pyramis (03/15/2025 0701) Echocardiogram complete w contrast Final [...] 2 puff 2 puff Inhalation Q4H PRN KingwoodMuna rodriguez MD aluminum-magnesium hydroxide-simethicone (MAALOX PLUS) 200-200-20 mg/5 mL suspension 30 mL 30 mL Oral Q4H PRN Muna Otto MD aspirin EC tablet 81 mg 81 mg Oral Daily Demetrice Escobar, PLUMBER SUPERVISOR 81 mg at 03/14/25 1705 atorvastatin (LIPITOR) tablet 80 mg 80 mg Oral Nightly KingwoodMuna denise MD 80 mg at 03/14/252109 azelastine (ASTELIN) 137 mcg (0.1 %) nasal spray 1 spray 1 spray Each Nare Daily Muna Otto MD calcium carbonate (TUMS) chewable tablet 500 mg 500 mg Oral Daily PRN KingwoodMuna rodriguez MD enoxaparin (LOVENOX) syringe 40 mg 40 mg Subcutaneous Daily KingwoodMuna denise MD furosemide (LASIX) tablet 20 mg 20 mg Oral Every Other Day Muna Otto MD HYDROmorphone (DILAUDID) injection 0.5 mg 0.5 mg Intravenous Q3H PRN KingwoodMuna rodriguez MD 0.5 mg at 03/14/252109 losartan (COZAAR) tablet 50 mg 50 mg Oral Daily with lunch KingwoodMuna denise MD melatonin Tab 5 mg 5 mg Oral Nightly PRN KingwoodMuna rodriguez MD metoprolol tartrate (LOPRESSOR) tablet 50 mg 50 mg Oral BID KingwoodMuna denise MD 50 mg at 03/14/252109 naloxone (NARCAN) injection 0.1 mg 0.1 mg Intravenous PRN Muna Otto MD And naloxone (NARCAN) injection 0.4 mg 0.4 mg Intravenous PRN KingwoodMuna rodriguez MD ondansetron (ZOFRAN) injection 4 mg 4 mg Intravenous Q6H PRN Muna Otto MD 4 mg at 03/14/25 2242 oxyCODONE-acetaminophen (PERCOCET) 5-325 mg per tablet 1 tablet 1 tablet Oral Q6H PRN Muna Otto MD pantoprazole (PROTONIX) EC tablet 40 mg 40 mg Oral Daily Muna Otto MD polyethylene glycol (MIRALAX) powder 17 g 17 g Oral Daily KingwoodMuna rodriguez MD polyvinyl alcohol (LIQUIFILM TEARS) 1.4 % ophthalmic solution 1 drop 1 drop Both Eyes PRN Muna Otto MD senna-docusate (SENNA-S) 8.6-50 mg per tablet 1 tablet 1 tablet Oral Daily PRN KingwoodMuna rodriguez MD sodium chloride (OCEAN) 0.65 % nasal [...] tablet 10 mg 10 mg Oral Nightly KingwoodMuna rodriguez MD 10 mg at 03/14/25 2236 documented in this encounter [facility] 03-21-2025 Note MEDONE DISCHARGE Tristin Thakkar Account: [id number] Admitted: 03/14/2025 Discharge Date/Time: 03/21/25 / 3:57 PM ___ Handoff to PCP Routine hospital follow up Outpatient follow-up with vascular surgery. Continued Xarelto. Clinical Summary Tristin Powell is a 85 y.o. male with a history of Peripheral Artery Disease s/p Bypass, Afib (Xarelto), Diastolic Heart Failure, Coronary Artery Disease s/p CABG, recent balloon angioplasty 03/12/2025,. presented to [facility] ED on 03/14/2025 from Vascular Surgery clinic with intractable right foot pain. Found to have critical right LE ischemia s/p distal SFA to peroneal bypass. Discharged home with outpatient therapy. Critical right lower limb ischemia: History of PAD. Follows Dr. Beaver ([facility] Surgery) and Dr. Sarabia (Vascular Surgery) [...] S/p IV pain meds. CAD: Followed by [facility] Cardiology s/p 3 vessel coronary artery bypass [...] Medications New Medications Details naloxone 4 mg/actuation Presho Commonly known as: NARCAN Administer 1 spray [...] visible water re (more content not included)... [facility] 03-21-2025 Hospital course Narrative MEDONE DISCHARGE SUMMARY Tristin Powell Account: [id number] Admitted: 03/14/2025 Discharge Date/Time: 03/21/25 3:57 PM ___ Handoff to PCP Routine hospital follow up Outpatient follow-up with vascular surgery. Continued Xarelto. Clinical Summary Tristin Powell is a 85 y.o. male with a history of Peripheral Artery Disease s/p Bypass, Afib (Xarelto), Diastolic Heart Failure, Coronary Artery Disease s/p CABG, recent balloon angioplasty 03/12/2025,. presented to [facility] ED on 03/14/2025 from Vascular Surgery clinic with intractable right foot pain. Found to have critical right LE ischemia s/p distal SFA to peroneal bypass. Discharged home with outpatient therapy. Critical right lower limb ischemia: History of PAD. Follows Dr. Beaver ([facility] Surgery) and Dr. Sarabia (Vascular Surgery) [...] S/p IV pain meds. CAD: Followed by [facility] Cardiology s/p 3 vessel coronary artery bypass [...] Medications New Medications Details naloxone 4 mg/actuation Presho Commonly known as: NARCAN Administer 1 spray [...] Physician(s) Family: Flash Lovelace MD, , Address: [address] [place] [address] / [place] [address] Follow Up: Physicians, [facility] [address] [place] [address] Follow up Thank you for allowing us to participate in your care. Please follow up with your vascular surgery team after discharge. Please call our office with any questions or concerns. OTHER - NOT IN LIST [place] [address] Additional Information: Patient seen and examined day of discharge. For more information regarding patient's care, including complete radiology reports, please contact [facility] at Patient instructions, including activity, were given to the patient/family at discharge. Please see the After Visit Summary in the medical record for details. Time spent on discharge: > 30 minutes Completed by: Uri Voss DO on 03/21/25, 3:57 PM documented in this encounter [facility] 03-21-2025 Hospital Discharge instructions Beena [...] if you need help quitting smoking: call [phone] ( ) or visit [email or web address] for more information. Who to Call: [facility] Vascular Surgery [facility] Please call the office number at [phone] to confirm your follow-up appointment, or if you have any questions or concerns. documented in this encounter [facility] 03-21-2025 Consult note Associated Order (s): IP CONSULT TO HOME HEALTH HUB HOME HEALTH CARE DISCHARGE PLAN Consulted for [facility] services: PT, OT Agency preference: [place] If discharge needs change, please reach out to liaison assigned on treatment team as hub is not notified of new consults once team is following. Thank you. Patients needing wound care or infusions (IVs or enteral feeds) should not discharge until [facility] is completely set up. AddendUm 1056: Rec'd call from Any, referral accepted. AVS updated. Addendum 3583: Rec'd msg from Richie MARIO, pt elects outpt therapy. [facility] discontinued and update sent to [facility]. Is [facility] plan complete or pending? Pt elects outpt tx Name of accepting [facility] agency: [facility] - notified Referrals sent to: (names of agencies) Please be advised that agencies have 24 hours to respond to referrals. [facility] (did not send) [facility] (orders) placed? discontinued Verify demographics (discharge address) [address] [facility] [address] [employer] What is the primary phone number? [phone] Who is your primary care physician? Flash [...] = Start of Care TCG = Teachable Bread Wrapper [facility] 03-21-2025 Consult note Associated Order (s): IP CONSULT TO HOME HEALTH HUB HOME HEALTH CARE DISCHARGE PLAN Consulted for [facility] services: PT, OT Agency preference: [place] If discharge needs change, please reach out to liaison assigned on treatment team as hub is not notified of new consults once team is following. Thank you. Patients needing wound care or infusions (IVs or enteral feeds) should not discharge until [facility] is completely set up. AddendUm 1050: Rec'd call from Larisa, referral accepted. AVS updated. Addendum 4077: Rec'd msg from Richie MARIO, pt elects outpt therapy. [facility] discontinued and update sent to [facility]. Is [facility] plan complete or pending? Pt elects outpt tx Name of accepting [facility] agency: [facility] - notified Referrals sent to: (names of agencies) Please be advised that agencies have 24 hours to respond to referrals. [facility] (did not send) [facility] (orders) placed? discontinued Verify demographics (discharge address) [address] [facility] [address] [employer] What is the primary phone number? [phone] Who is your primary care physician? Flash [...] = Start of Care TCG = Teachable Bread Wrapper Associated Order(s): IP CONSULT TO CARE MANAGEMENT; [...] 5 with ampac of 10. Per previous [facility] note, patient was agreeable to [facility] services prior to OR 03/17. Patient was independent prior to admission, hopeful for progression with therapy to proceed with home going plan. Otherwise will explore facility route if interested. If agreeable to facility, will need precert. Will continue to follow as patient progresses medically. Addendum 1355: spoke with patient at bedside. Patient only wants home going plan. Will still plan for c once ready for discharge. Assessment and Background [...] intolerance. The patient's home setup is a tub attendant for return to prior level of function. The patient's compliance is a barrier, awareness of own capacity and performance is a tub attendant to return to prior level of function. [...] AFO (Prior L-foot amputation.) Weight Bearing Status: WF General Rehab Precautions: Fall risk Cognition Overall Cognitive Status: Within Functional Limits Arousal/Alertness: Appropriate responses to stimuli Orientation Level: Oriented X4 Executive functioning: WF Safety Judgment: Decreased awareness of need for assistance, Decreased awareness of need for safety Problem Solving: Assistance required to identify errors made, Assistance required to generate solutions Attention: Attends to quiet environment Hearing Status: [facility] Social Interaction: Appropriate, Cooperative, Impulsive Comments: [...] Supine: (Post-session Pt left in EOB position.) Financial Reserve Clerk: bedrails Functional Transfers Sit to Stand: Minimal assist, Moderate assist, 2 person assist Financial Reserve Clerk: wheeled walker Additional Functional Transfer Trial 2: Yes Sit to Stand Trial 2: Contact guard assist, Minimal assist Bed to Chair Trial 2: Contact guard assist, Minimal assist Financial Reserve Clerk Trial 2: wheeled walker Home Living Obtained [...] walker.) Prior Level of Function Level of Wells - Transfers/Ambulation/Mobility: Independent with functional transfers Level of Wells - ADLs: Independent Level of Wells - Homemaking: Independent Driving: Patient drives Vocational: [...] Arthritis Avascular necrosis of bone of hip ([facility]) Claudication COPD (chronic obstructive pulmonary disease) ([facility]) Coronary artery disease Herpes zoster Hyperlipidemia Hypertension PAD (peripheral artery disease) ([facility]) 01/21/2022 Posterior tibial tendinitis of right leg 11/07/2022 Prostate cancer ([facility]) Vascular disease Past Surgical History: Procedure Laterality Date 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/08/2018 Procedure: LEFT MIDFOOT AMPUTATION; Surgeon: Flynn Mann DPM; Location: [facility] OR; Service: Podiatry ANKLE SURGERY Left BYPASS FEMOROTIBIAL REPAIR/GRAFT Right 03/17/2025 Procedure: RIGHT FEMORAL TO TIBIAL BYPASS WITH ARM VEIN. Angiogram; Surgeon: Mohsen Sarabia MD; Location: [facility] OR; Service: Gen-Vascular; Laterality: Right; BYPASS PERONEAL FEMORAL Right 09/07/2018 Procedure: BYPASS PERONEAL FEMORAL, RIGHT SAPHENOUS VEIN HARVEST, COMPLETION ANGIOGRAM; Surgeon: Mohsen Sarabia MD; Location: [facility] OR; Service: Cardiovascular CARDIAC CATHETERIZATION Left 09/05/2018 Procedure: Angio Lower Extremity; Surgeon: Ben Hahn MD; Location: [facility] VENEREAL DISEASE CONTROL HEAD; Service: Cardiovascular CARDIAC SURGERY 2017 triple bypass EGD N/A 10/10/2018 Procedure: ESOPHAGOGASTRODUODENOSCOPY; Surgeon: Ben Jensen MD; Location: [facility]; Service: Gastroenterology EYE SURGERY Right 2015 [...] Plan: Transportation Type: Auto Discharge Plan Status: [employer] POWER PLANT MANAGER consulted for discharge needs. PT recommending therapy 2-3 days per week. OT pending. [employer] POWER PLANT MANAGER met with pt at bedside to discuss HHC level of care. Pt agreeable HHC. Pt with no [preference of agency. Pt's son will be primary caregiver upon discharge and will transport pt home when medically ready. [employer] POWER PLANT MANAGER confirmed pt demographics including address on file, [...] Assessment Limitations Including: Mechanical Barriers, Pain Are wire stretcher Therapy Services Needed After Discharge: Yes Intensity of wire stretcher Therapy: 2-3 days per week Anticipated Duration of wire stretcher Therapy: Duration 10 - 30 days PT [...] Standing Balance - Static: Contact guard assist Financial Reserve Clerk - Standing Static: wheeled walker Standing Balance - Dynamic: Contact guard assist Financial Reserve Clerk - Standing Dynamic: same clinical laboratory aide used for static standing tasks Bed Mobility Rolling: Supervision Supine to Sit: Supervision Sit to Supine: (patient sitting EOB) Financial Reserve Clerk: bedrails Transfers Sit to Stand: Contact guard assist Financial Reserve Clerk: wheeled walker Gait/Locomotion Gait Assistance: Contact guard [...] walker.) Prior Level of Function Level of Wells - Transfers/Ambulation/Mobility: Independent with community ambulation, Independent with household ambulation, Independent with functional transfers Level of Wells - ADLs: Independent Level of Wells - Homemaking: Independent Driving: Patient drives Vocational: [...] Arthritis Avascular necrosis of bone of hip ([facility]) Claudication COPD (chronic obstructive pulmonary disease) ([facility]) Coronary artery disease Herpes zoster Hyperlipidemia Hypertension PAD (peripheral artery disease) ([facility]) 01/21/2022 Posterior tibial tendinitis of right leg 11/07/2022 Prostate cancer ([facility]) Vascular disease Past Surgical History: Procedure Laterality Date 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/08/2018 Procedure: LEFT MIDFOOT AMPUTATION; Surgeon: Flynn Mann DPM; Location: [facility] OR; Service: Podiatry ANKLE SURGERY Left BYPASS PERONEAL FEMORAL Right 09/07/2018 Procedure: BYPASS PERONEAL FEMORAL, RIGHT SAPHENOUS VEIN HARVEST, COMPLETION ANGIOGRAM; Surgeon: Mohsen Sarabia MD; Location: [facility] OR; Service: Cardiovascular CARDIAC CATHETERIZATION Left 09/05/2018 Procedure: Angio Lower Extremity; Surgeon: Ben Hahn MD; Location: [facility] VENEREAL DISEASE CONTROL HEAD; Service: Cardiovascular CARDIAC SURGERY 2017 triple bypass EGD N/A 10/10/2018 Procedure: ESOPHAGOGASTRODUODENOSCOPY; Surgeon: Ben Jensen MD; [place] [facility] [place]; Service: Gastroenterology EYE SURGERY Right 2015 [...] Vascular Cardiology Inpatient Consult Heart & Vascular [facility] 03/14/2025 Demetrice Escobar, PLUMBER SUPERVISOR [address] [place] [address] Patient: Tristin Powell Date of : 1940 [...] Recently underwent RLE angio on 03/12/25 via [facility] in [place] Non-invasive Studies: RLE arterial duplex (03/14/25): 50-99% [...] RLE angiograms dated 03/12/25 and 10/12/23 from [facility]. Will review non-invasive studies as obtained earlier today as well as H RLE angiograms with PV attending. Final disposition [...] underwent formal LE angio on 03/12/25 via [facility]. Follows with Dr. Juarez, cardiology, at [facility]. Last OV 11/2024. Son is present [...] was drawn out. Relevant Vascular History: 06/2024: [facility] demonstrating stable coronary artery disease. Patent [...] SVG to PDA) via [facility] 10/2007: [facility] with MARIA ESTHER to LAD and LCx Objective Imaging: I independently reviewed the non-invasive vascular studies and agree with the interpretation(s) ECG 12 Lead Final Result by Interface, Lab Results In [place] [facility] (11/07/2022 1139) Echocardiogram complete w contrast [...] Arthritis Avascular necrosis of bone of hip ([facility]) Claudication COPD (chronic obstructive pulmonary disease) ([facility]) Coronary artery disease Herpes zoster Hyperlipidemia Hypertension PAD (peripheral artery disease) ([facility]) 01/21/2022 Posterior tibial tendinitis of right leg 11/07/2022 Prostate cancer ([facility]) Vascular disease Past Surgical History: Procedure Laterality Date 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/08/2018 Procedure: LEFT MIDFOOT AMPUTATION; Surgeon: Flynn Mann DPM; Location: [facility] OR; Service: Podiatry ANKLE SURGERY Left BYPASS PERONEAL FEMORAL Right 09/07/2018 Procedure: BYPASS PERONEAL FEMORAL, RIGHT SAPHENOUS VEIN HARVEST, COMPLETION ANGIOGRAM; Surgeon: Mohsen Sarabia MD; Location: [facility] NEURO OR; Service: Cardiovascular CARDIAC CATHETERIZATION Left 09/05/2018 Procedure: Angio Lower Extremity; Surgeon: Ben Hahn MD; Location: [facility] VENEREAL DISEASE CONTROL HEAD; Service: Cardiovascular CARDIAC SURGERY 2017 triple bypass EGD N/A 10/10/2018 Procedure: ESOPHAGOGASTRODUODENOSCOPY; Surgeon: Ben Jensen MD; [place] [facility] [place]; Service: Gastroenterology EYE SURGERY Right 2015 [...] (two) times a day / tab . AZELASTINE (ASTELIN) 137 MCG (0.1 [...] to contact me, my mobile number is [phone]. Respectfully, Demetrice Martinez APRN [facility] Heart and Vascular Physicians [1] [...] fibrillation, and advanced PAD who presents with [place] 4 critical limb threatening ischemia of the [...] He underwent angiography 2 days ago in [place] where he was found to have progressive [...] Arthritis Avascular necrosis of bone of hip ([facility]) Claudication COPD (chronic obstructive pulmonary disease) ([facility]) Coronary artery disease Herpes zoster Hyperlipidemia Hypertension PAD (peripheral artery disease) ([facility]) 01/21/2022 Posterior tibial tendinitis of right leg 11/07/2022 Prostate cancer ([facility]) Vascular disease Allergies: Doxycycline and Gabapentin Current [...] artery as it enters the foot. Impression: [place] 4 critical limb threatening ischemia Advanced peripheral [...] vascular surgery colleagues I personally performed a [id number] diagnostic evaluation on this patient on the [...] injection 0.1 mg 0.1 mg Intravenous PRN KingwoodMuna denise MD And naloxone (NARCAN) injection 0.4 mg 0.4 mg Intravenous PRN [place]Muna rodriguez MD ondansetron (ZOFRAN) injection 4 mg 4 mg Intravenous Q6H PRN Muna Otto MD oxyCODONE-acetaminophen (PERCOCET) 5-325 mg per tablet 1 tablet 1 tablet Oral Q6H PRN [place], Muna Bhatti MD sodium chloride (PF) (NS) flush 5 [...] left TMA who presented to [facility] on 03/14/2025 with worsening RLE pain and [...] Beena Barraza MD General Surgery Resident, PGY-2 [facility] Please contact surgical project management intern licensed occupational therapist 5PM-6AM and weekends - #[phone] VTS Pager - #[phone] Admitted with these risk variables:None. Please see [...] Arthritis Avascular necrosis of bone of hip ([facility]) Claudication COPD (chronic obstructive pulmonary disease) ([facility]) Coronary artery disease Herpes zoster Hyperlipidemia Hypertension PAD (peripheral artery disease) ([facility]) 01/21/2022 Posterior tibial tendinitis of right leg 11/07/2022 Prostate cancer ([facility]) Vascular disease Past Surgical History: Procedure Laterality Date 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/08/2018 Procedure: LEFT MIDFOOT AMPUTATION; Surgeon: Flynn Mann DPM; Location: [facility] OR; Service: Podiatry ANKLE SURGERY Left BYPASS PERONEAL FEMORAL Right 09/07/2018 Procedure: BYPASS PERONEAL FEMORAL, RIGHT SAPHENOUS VEIN HARVEST, COMPLETION ANGIOGRAM; Surgeon: Mohsen Saraiba MD; Location: [facility] NEURO OR; Service: Cardiovascular CARDIAC CATHETERIZATION Left 09/05/2018 Procedure: Angio Lower Extremity; Surgeon: Ben Hahn MD; Location: [facility] VENEREAL DISEASE CONTROL HEAD; Service: Cardiovascular CARDIAC SURGERY 2017 triple bypass EGD N/A 10/10/2018 Procedure: ESOPHAGOGASTRODUODENOSCOPY; Surgeon: Ben Jensen MD; Location: [facility]; Service: Gastroenterology EYE SURGERY Right 2015 [...] Resource Strain: Low Risk (06/21/2024) Received from [facility] Overall Financial Resource Strain (CARDIA) Difficulty of Paying Living Expenses: Not hard at all Food Insecurity: No Food Insecurity (06/21/2024) Received from [facility] Hunger Vital Sign Worried About Running Out of Food in the Last Year: Never true Ran Out of Food in the Last Year: Never true Transportation Needs: No Transportation Needs (06/21/2024) Received from [facility] PRAPARE - Transportation Lack of Transportation (Medical): No Lack of Transportation (Non-Medical): No Physical Activity: Insufficiently Active (06/21/2024) Received from [facility] Exercise Vital Sign Days of Exercise per Week: 7 days Minutes of Exercise per Session: 10 min Stress: No Stress Concern Present (06/21/2024) Received from [facility] [place] [employer] - Occupational Stress Questionnaire Feeling of Stress : Not at all Housing Stability: Low Risk (06/21/2024) Received from [facility] Housing Stability Vital Sign Unable to [...] personally examined the patient and agree with resident/GAME ENGINEER/PA assessment and plan with the following additional findings. Pt known to me with CLTI of the RLE with rest pain and early ischemic skin changes. Plan for R fem tib bypass on Monday for limb salvage documented in this encounter [facility] 03-21-2025 Plan of care note [...] Absence of pressure injury Outcome: Partially Met [facility] 03-21-2025 Miscellaneous Notes Problem: Actual [...] CABG, recent balloon angioplasty 03/12/2025,. presented to [facility] ED on 03/14/2025 from Vascular Surgery clinic with intractable right foot pain. Found to have critical right LE ischemia. S/p angiogram 03/17/25 with R SFA to peroneal bypass. Past Medical History: Diagnosis Date Arthritis Avascular necrosis of bone of hip ([facility]) Claudication COPD (chronic obstructive pulmonary disease) ([facility]) Coronary artery disease Herpes zoster Hyperlipidemia Hypertension PAD (peripheral artery disease) ([facility]) 01/21/2022 Posterior tibial tendinitis of right leg 11/07/2022 Prostate cancer ([facility]) Vascular disease Past Surgical History: Procedure Laterality Date 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/08/2018 Procedure: LEFT MIDFOOT AMPUTATION; Surgeon: Flynn Mann DPM; Location: [facility] OR; Service: Podiatry ANKLE SURGERY Left BYPASS FEMOROTIBIAL REPAIR/GRAFT Right 03/17/2025 Procedure: RIGHT FEMORAL TO TIBIAL BYPASS WITH ARM VEIN. Angiogram; Surgeon: Mohsen Sarabia MD; Location: [facility] NEURO OR; Service: Gen-Vascular; Laterality: Right; BYPASS PERONEAL FEMORAL Right 09/07/2018 Procedure: BYPASS PERONEAL FEMORAL, RIGHT SAPHENOUS VEIN HARVEST, COMPLETION ANGIOGRAM; Surgeon: Mohesn Sarabia MD; Location: [facility] NEUR[facility] OR; Service: Cardiovascular CARDIAC CATHETERIZATION Left 09/05/2018 Procedure: Angio Lower Extremity; Surgeon: Ben Hahn MD; Location: [facility] VENEREAL DISEASE CONTROL HEAD; Service: Cardiovascular CARDIAC SURGERY 2017 triple bypass EGD N/A 10/10/2018 Procedure: ESOPHAGOGASTRODUODENOSCOPY; Surgeon: Ben Jensen MD; Location: [facility]; Service: Gastroenterology EYE SURGERY Right 2015 [...] No Nutrition Related Allergies noted Cultural or Rastafari Dietary Needs :No Cultural or Rastafari Dietary needs noted Difficulty Chewing or Swallowing: [...] Nightly Continuous Infusions: sodium chloride Serenity Wilson RD,LD,[facility] or in [facility] Secure Chat Problem: Actual or potential alteration [...] 1940 (85 y.o.) Date of Service: 03/17/2025 [facility]: [id number] Procedure(s): RIGHT FEMORAL TO TIBIAL BYPASS WITH ARM VEIN. Angiogram Pre-Operative Diagnoses: * PERIPHERAL ARTERY DISEASE Post-Operative Diagnoses: same Surgeons and Role: * Mohsen Sarabia MD - Primary * Karina Orozco MD - Resident - Assisting Anesthesiologist: Serjio Olivarez MD; Muna Gil MD SENIOR SALES ENGINEER: Viviana Dhillon CRNA Records And Tape Recordings Engineer: Lori Diaz RN Soil Sampler: Jose C Ambrose, TECHNOLOGIST Records And Tape Recordings Engineer Relief: Millicent Cedeño RN; Arlene Watson RN Scrub Person Relief: Izabel Bosch RN Records And Tape Recordings Engineer Orientee: Kaylie Jason RN Records And Tape Recordings Engineer Preceptor: Izabel Bosch RN Scrub Person Preceptor: [...] Implant Name Type Inv. Item Serial No. Lead Cargoman Lot No. LRB No. Used Action HEMOSTAT 2 X 4IN SURGICEL FIBRILLAR - SNA HEMOSTAT 2 X 4IN SURGICEL FIBRILLAR NA ETHICON [id number] Right 1 Implanted SEALANT 10ML HEMOSTATIC MATRIX FAST PREP FLOSEAL W/RECOTHROM - [id number] SEALANT 10ML HEMOSTATIC MATRIX FAST PREP FLOSEAL W/RECOTHROM EQUISO BIO [id number] Right 1 Implanted Drain(s): Urethral Catheter Non-latex;Straight-tip [...] working appropriately Verified by note author and VAN Jean. Added to greens laborer schedule for 03/17/25, with Dr. Mast for a RLE angio +/- intervention. Orders placed. Consent signed and given to greens laborer. ASA and clopidogrel initiated. Again, no heparin gtt required unless needed in the setting of hx of paroxysmal a.fib (historically on Xarelto; however, has been held over the past week 2/2 RLE angio at [facility] as performed on 03/12/25). Additionally, please [...] RLE angiogram from March 12, 2025 from [facility] sent electronically. This was sent to Juana Escobar NP. She was able to open and view. Images sent to appropriate staff per Juana Escobar CNP. Called and notified the patient's daughter that she does not have to get the disc from [place] and bring to [facility]. Associated Problem(s): Carotid stenosis, asymptomatic, bilateral Asymptomatic. No hx of CVA Non-invasive Studies: Carotid Duplex (04/2024): Left ICA with mild <50% stenosis of heterogenous plaque. Right ICA with moderate 50-69% stenosis of heterogenous plaque Associated Problem(s): Coronary artery disease involving coronary bypass graft of [place] heart without angina pectoris S/p 3v CABG [...] Recently underwent RLE angio on 03/12/25 via [facility] in [place] Non-invasive Studies: RLE arterial duplex (03/14/25): 50-99% [...] therapies as prescribed. documented in this encounter [facility] 03-20-2025 Initial evaluation note 03/20/2025: [...] CABG, recent balloon angioplasty 03/12/2025,. presented to [facility] ED on 03/14/2025 from Vascular Surgery clinic with intractable right foot pain. Found to have critical right LE ischemia. S/p angiogram 03/17/25 with R SFA to peroneal bypass. Past Medical History: Diagnosis Date Arthritis Avascular necrosis of bone of hip ([facility]) Claudication COPD (chronic obstructive pulmonary disease) ([facility]) Coronary artery disease Herpes zoster Hyperlipidemia Hypertension PAD (peripheral artery disease) ([facility]) 01/21/2022 Posterior tibial tendinitis of right leg 11/07/2022 Prostate cancer ([facility]) Vascular disease Past Surgical History: Procedure Laterality Date 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/08/2018 Procedure: LEFT MIDFOOT AMPUTATION; Surgeon: Flynn Mann DPM; Location: [facility] OR; Service: Podiatry ANKLE SURGERY Left BYPASS FEMOROTIBIAL REPAIR/GRAFT Right 03/17/2025 Procedure: RIGHT FEMORAL TO TIBIAL BYPASS WITH ARM VEIN. Angiogram; Surgeon: Mohsen Sarabia MD; Location: [facility] NEURO OR; Service: Gen-Vascular; Laterality: Right; BYPASS PERONEAL FEMORAL Right 09/07/2018 Procedure: BYPASS PERONEAL FEMORAL, RIGHT SAPHENOUS VEIN HARVEST, COMPLETION ANGIOGRAM; Surgeon: Mohsen Sarabia MD; Location: [facility] NEURO OR; Service: Cardiovascular CARDIAC CATHETERIZATION Left 09/05/2018 Procedure: Angio Lower Extremity; Surgeon: Ben Hahn MD; Location: [facility] VENEREAL DISEASE CONTROL HEAD; Service: Cardiovascular CARDIAC SURGERY 2017 triple bypass EGD N/A 10/10/2018 Procedure: ESOPHAGOGASTRODUODENOSCOPY; Surgeon: Ben Jensen MD; [place]: [facility]; Service: Gastroenterology EYE SURGERY Right 2015 [...] No Nutrition Related Allergies noted Cultural or Rastafari Dietary Needs :No Cultural or Rastafari Dietary needs noted Difficulty Chewing or Swallowing: [...] Nightly Continuous Infusions: sodium chloride Serenity Wilson RD,LD,[facility] or in [employer] Secure Chat [facility] 03-20-2025 Note [facility] Inpatient Pro lucy Note 03/20/2025 Tristin Powell 1940 [id number] Assessment/Plan: Tristin Powell is a 85 y.o. male with a history of Peripheral Artery Disease s/p Bypass, Afib (Xarelto), Diastolic Heart Failure, Coronary Artery Disease s/p CABG, recent balloon angioplasty 03/12/2025,. presented to [facility] ED on 03/14/2025 from Vascular Surgery clinic with intractable right foot pain. Found to have critical right LE ischemia Critical right lower limb ischemia: History of PAD. Follows Dr. Beaver ([facility]) and Dr. Sarabia (Vascular Surgery) [...] S/p IV pain meds. CAD: Followed by [facility] Cardiology s/p 3 vessel coronary artery bypass [...] xarelto Medication Reconciliation: Reviewed using patient interview, auto brake technician Current living situation: home Expected Disposition: [...] major joint deformity: RLE tired leg and dry house tender to touch. Moving well with mild [...] 4.34* 5.05 HG (more content not included)... [facility] 03-20-2025 Note VASCULAR SURGERY PRO LUCY NOTE [...] left TMA who presented to [facility] on 03/14/2025 with worsening RLE pain and [...] TREV COLEMAN MD General Surgery Resident, PGY-1 [facility] Please contact surgical project management intern licensed occupational therapist 5PM-6AM and weekends - #[phone] VTS Pager - #[phone] Subjective NAEO. Has been ambulating. New bruising [...] AUTHENTICATED BY TREV COLEMAN ON 03/20/2025 07:05:30 [facility] 03-20-2025 Plan of care note Problem: Actual [...] Absence of pressure injury Outcome: Partially Met [facility] 03-19-2025 Consult note Associated Order [...] 5 with ampac of 10. Per previous [facility] note, patient was agreeable to [...] ready for discharge. Assessment and Background Information: [facility] 03-19-2025 Consult note Formatting of [...] intolerance. The patient's home setup is a tub attendant for return to prior level of function. The patient's compliance is a barrier, awareness of own capacity and performance is a tub attendant to return to prior level of function. [...] Attention: Attends to quiet environment Hearing Status: [facility] Social Interaction: Appropriate, Cooperative, Impulsive Comments: [...] Supine: (Post-session Pt left in EOB position.) Financial Reserve Clerk: bedrails Functional Transfers Sit to Stand: Minimal assist, Moderate assist, 2 person assist Financial Reserve Clerk: wheeled walker Additional Functional Transfer Trial 2: Yes Sit to Stand Trial 2: Contact guard assist, Minimal assist Bed to Chair Trial 2: Contact guard assist, Minimal assist Financial Reserve Clerk Trial 2: wheeled walker Home Living Obtained [...] walker.) Prior Level of Function Level of Wells - Transfers/Ambulation/Mobility: Independent with functional transfers Level of [place] - ADLs: Independent Level of [place] - Homemaking: Independent Driving: Patient drives Vocational: [...] Arthritis Avascular necrosis of bone of hip ([facility]) Claudication COPD (chronic obstructive pulmonary disease) ([facility]) Coronary artery disease Herpes zoster Hyperlipidemia Hypertension PAD (peripheral artery disease) ([facility]) 01/21/2022 Posterior tibial tendinitis of right leg 11/07/2022 Prostate cancer ([facility]) Vascular disease Past Surgical History: Procedure Laterality Date 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/08/2018 Procedure: LEFT MIDFOOT AMPUTATION; Surgeon: Flynn Mann DPM; Location: [facility]; Service: Podiatry ANKLE SURGERY Left BYPASS FEMOROTIBIAL REPAIR/GRAFT Right 03/17/2025 Procedure: RIGHT FEMORAL TO TIBIAL BYPASS WITH ARM VEIN. Angiogram; Surgeon: Mohsen Sarabia MD; Location: [facility] NEURO OR; Service: Gen-Vascular; Laterality: Right; BYPASS PERONEAL FEMORAL Right 09/07/2018 Procedure: BYPASS PERONEAL FEMORAL, RIGHT SAPHENOUS VEIN HARVEST, COMPLETION ANGIOGRAM; Surgeon: Mohsen Sarabia MD; Location: [facility] NEURO OR; Service: Cardiovascular CARDIAC CATHETERIZATION Left 09/05/2018 Procedure: Angio Lower Extremity; Surgeon: Ben Hahn MD; Location: [facility] VENEREAL DISEASE CONTROL HEAD; Service: Cardiovascular CARDIAC SURGERY 2017 triple bypass EGD N/A 10/10/2018 Procedure: ESOPHAGOGASTRODUODENOSCOPY; Surgeon: Ben Jensen MD; Location: [facility]; Service: Gastroenterology EYE SURGERY Right 2015 [...] Alcantara OT at 03/19/2025 4:38 PM EDT [facility] 03-19-2025 Note [facility] Pro lucy Note 03/19/2025 Tristin Powell 1940 [id number] Assessment/Plan: Tristin Powell is a 85 y.o. male with a history of Peripheral Artery Disease s/p Bypass, Afib (Xarelto), Diastolic Heart Failure, Coronary Artery Disease s/p CABG, recent balloon angioplasty 03/12/2025,. presented to [facility] ED on 03/14/2025 from Vascular Surgery clinic with intractable right foot pain. Found to have critical right LE ischemia Critical right lower limb ischemia: History of PAD. Follows Dr. Beaver ([facility] Surgery) and Dr. Sarabia (Vascular Surgery) [...] added, wean as able. CAD: Followed by [facility] Cardiology s/p 3 vessel coronary artery bypass [...] xarelto Medication Reconciliation: Reviewed using patient interview, auto brake technician Current living situation: home Expected Disposition: PT/OT rec up to 5 pt requesting home with [facility], following. Estimated discharge date: ~03/20/2025 Medically [...] major joint deformity: RLE tired leg and dry house tender to touch. Moving well with mild [...] K/mcL 4.34* 5 (more content not included)... [facility] 03-19-2025 Note VASCULAR SURGERY PRO LUCY NOTE [...] left TMA who presented to [facility] on 03/14/2025 with worsening RLE pain and [...] TREV COLEMAN MD General Surgery Resident, PGY-1 [facility] Please contact surgical project management intern licensed occupational therapist 5PM-6AM and weekends - #[phone] VTS Pager - #[phone] Subjective NAEO. Was able to get up [...] AUTHENTICATED BY TREV COLEMAN, ON 03/19/2025 07:06:48 [facility] 03-18-2025 Note [facility] lucy Note 03/18/2025 Tristin Powell 1940 [id number] Assessment/Plan: Tristin Powell is a 85 y.o. male with a history of Peripheral Artery Disease s/p Bypass, Afib (Xarelto), Diastolic Heart Failure, Coronary Artery Disease s/p CABG, recent balloon angioplasty 03/12/2025,. presented to [facility] ED on 03/14/2025 from Vascular Surgery clinic with intractable right foot pain. Found to have critical right LE ischemia Critical right lower limb ischemia: History of PAD. Follows Dr. Beaver ([facility] Surgery) and Dr. Sarabia (Vascular Surgery) [...] dose. IV Dilaudid added. CAD: Followed by [facility] Cardiology s/p 3 vessel coronary artery bypass [...] per Medication Reconciliation: Reviewed using patient interview, auto brake technician Current living situation: home Expected Disposition: [...] major joint deformity: RLE tired leg and dry house tender to touch. Moving well with mild [...] Units 03/18/25 04 (more content not included)... [facility] 03-18-2025 Note VASCULAR SURGERY PRO LUCY NOTE [...] left TMA who presented to [facility] on 03/14/2025 with worsening RLE pain and discoloration. Arterial Duplex (03/14/25): 50-99% stenosis in the right mid SFA YAMILE's (03/14/25): Right YAMILE is 0.50. Left YAMILE is 0.55. CTLI IV Aortic Stenosis -Admitted to medicine -s/p RLE distal SFA to peroneal bypass w/ reversed LUE cephalic vein, completion angio w/ diminutive runoff via peroneal (03/17, [facility]) -Diet as tolerated -Discontinue qureshi, yoly -UOOB, AAT, IS -Continue ASA 81 -Will discuss with Dr. Sarabia TREV COLEMAN MD General Surgery Resident, PGY-2 [facility] Please contact surgical project management intern licensed occupational therapist 5PM-6AM and weekends - #[phone] VTS Pager - #[phone] Subjective NAEO. Feels good this morning. Wants [...] AUTHENTICATED BY TREV COLEMAN, ON 03/18/2025 06:35:17 [facility] 03-18-2025 History of Present illness Narrative Pt seen by PV cardiology while at [facility]. Per Catina Calixto CNP, no PV cardiology follow up needed, pt to f/u with vascular surgery. documented in this encounter [facility] 03-18-2025 Plan of care note [...] Absence of pressure injury Outcome: Partially Met [facility] 03-17-2025 Note VASCULAR SURGERY PRO LUCY NOTE Patient Name: Tristin Powell ASSESSMENT AND PLAN Tristin Powell is a 85 y.o. male with history of arotic stenosis, HTN, dyslipidemia, HFpEF, ascending/thoracic aortic aneurysm (4.[address] dated 04/2024), CAD (NSTEMI; s/p 3v CABG), paroxysmal a.fib, aortic & mitral valve disease, COPD, CKD stage 3, PAD, s/p left fem to peroneal bypass ([facility] Borges), left TMA who presented to [facility] on 03/14/2025 with worsening RLE pain and [...] Walker MD General Surgery Please contact surgical project management intern licensed occupational therapist 5PM-6AM and weekends VTS Pager - #[phone] SUBJECTIVE Patient is resting in bed with [...] AUTHENTICATED BY ABI WALKER, ON 03/18/2025 03:54:39 [facility] 03-17-2025 Procedure note Brief Post Operative Note Patient Name: Tristin Powell : 1940 (85 y.o.) Date of Service: 03/17/2025 CSN: [id number] Procedure(s): RIGHT FEMORAL TO TIBIAL BYPASS WITH ARM VEIN. Angiogram Pre-Operative Diagnoses: * PERIPHERAL ARTERY DISEASE Post-Operative Diagnoses: same Surgeons and Role: * Mohsen Sarabia MD - Primary * Karina Orozco MD - Resident - Assisting Anesthesiologist: Serjio Olivarez MD; Muna Gil MD SENIOR SALES ENGINEER: Viviana Dhillon CRNA Records And Tape Recordings Engineer: Lori Diaz RN Soil Sampler: Jose C Ambrose, TECHNOLOGIST Records And Tape Recordings Engineer Relief: Cedeño, Millicent, RN; Arlene Watson RN Scrub Person Relief: Izabel Bosch RN Records And Tape Recordings Engineer Orientee: Kaylie Jason RN Records And Tape Recordings Engineer Preceptor: Izabel Bosch RN Scrub Person Preceptor: [...] Implant Name Type Inv. Item Serial No. Lead Cargoman Lot No. LRB No. Used Action HEMOSTAT 2 X 4IN SURGICEL FIBRILLAR - SNA HEMOSTAT 2 X 4IN SURGICEL FIBRILLAR NA ETHICON [id number] Right 1 Implanted SEALANT 10ML HEMOSTATIC MATRIX FAST PREP FLOSEAL W/RECOTHROM - [id number] SEALANT 10ML HEMOSTATIC MATRIX FAST PREP FLOSEAL W/RECOTHROM [employer] [id number] Right 1 Implanted Drain(s): Urethral Catheter Non-latex;Straight-tip [...] Dressing Status Applied 03/14/252099 Drainage Amount None 07/18/25 2100 Drainage Description None 03/14/252099 Primary Dressing Bordered Foam (e.g. mepilex) 03/14/252099 Did the case consist of ANY colon or uterine surgery? NO Karina Orozco MD 03/17/2025 4:30 PM [place] Work Phone: 03-17-2025 Attending History and physical note INTERVAL HISTORY AND PHYSICAL Patient Name: Tristin Powell Admit Date: [id number] MR #: [id number] : 1940 The H&P has been reviewed [...] left TMA who presented to [facility] on 03/14/2025 with worsening RLE pain and [...] Beena Barraza MD General Surgery Resident, PGY-2 [facility] Please contact surgical project management intern licensed occupational therapist 5PM-6AM and weekends - #[phone] VTS Pager - #[phone] Admitted with these risk variables:None. Please see [...] (HCC) Claudication COPD (chronic obstructive pulmonary disease) ([facility]) Coronary artery disease Herpes zoster Hyperlipidemia Hypertension PAD (peripheral artery disease) ([facility]) 01/21/2022 Posterior tibial tendinitis of right leg 11/07/2022 Prostate cancer (HCC) Vascular disease Past Surgical History: Procedure Laterality Date 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/08/2018 Procedure: LEFT MIDFOOT AMPUTATION; Surgeon: Flynn Mann DPM; Location: [facility] OR; Service: Podiatry ANKLE SURGERY Left BYPASS PERONEAL FEMORAL Right 09/07/2018 Procedure: BYPASS PERONEAL FEMORAL, RIGHT SAPHENOUS VEIN HARVEST, COMPLETION ANGIOGRAM; Surgeon: Mohsen Sarabia MD; Location: [facility] NEURO OR; Service: Cardiovascular CARDIAC CATHETERIZATION Left 09/05/2018 Procedure: Angio Lower Extremity; Surgeon: Ben Hahn MD; Location: [facility] VENEREAL DISEASE CONTROL HEAD; Service: Cardiovascular CARDIAC SURGERY 2017 triple bypass EGD N/A 10/10/2018 Procedure: ESOPHAGOGASTRODUODENOSCOPY; Surgeon: Ben Jensen MD; [place] [facility] [place]; Service: Gastroenterology EYE SURGERY Right 2015 [...] Resource Strain: Low Risk (06/21/2024) Received from [facility] Overall Financial Resource Strain (CARDIA) Difficulty of Paying Living Expenses: Not hard at all Food Insecurity: No Food Insecurity (06/21/2024) Received from [facility] Hunger Vital Sign Worried About Running Out of Food in the Last Year: Never true Ran Out of Food in the Last Year: Never true Transportation Needs: No Transportation Needs (06/21/2024) Received from [facility] PRAPARE - Transportation Lack of Transportation (Medical): No Lack of Transportation (Non-Medical): No Physical Activity: Insufficiently Active (06/21/2024) Received from [facility] Exercise Vital Sign Days of Exercise per Week: 7 days Minutes of Exercise per Session: 10 min Stress: No Stress Concern Present (06/21/2024) Received from [facility] [employer] - Occupational Stress Questionnaire Feeling of Stress : Not at all Housing Stability: Low Risk (06/21/2024) Received from [facility] Housing Stability Vital Sign Unable to Pay for Housing in the Last Year: No Number of Times Moved in the Last Year: 0 Homeless in the Last Year: No Cosigned by Mohsen Sarabia MD at 03/16/2025 10:33 AM EDT [place] Work Phone: 03-17-2025 History and physical note INTERVAL HISTORY AND PHYSICAL Patient Name: Tristin Powell Admit Date: [id number] MR #: [id number] : 1940 The H&P has been reviewed [...] left TMA who presented to [facility] on 03/14/2025 with worsening RLE pain and [...] Beena Barraza MD General Surgery Resident, PGY-2 [facility] Please contact surgical project management intern licensed occupational therapist 5PM-6AM and weekends - #[phone] VTS Pager - #[phone] Admitted with these risk variables:None. Please see [...] in toes. Last dose of aspirin was 7/17/25 AM. Last dose of Xarelto was 03/13/25 AM, he was told to stop due to procedure and stopped afterward due to severe pain. Review of systems otherwise negative unless stated above. PAST MEDICAL, SURGICAL, FAMILY, SOCIAL HISTORY Past Medical History: Diagnosis Date Arthritis Avascular necrosis of bone of hip ([facility]) Claudication COPD (chronic obstructive pulmonary disease) ([facility]) Coronary artery disease Herpes zoster Hyperlipidemia Hypertension PAD (peripheral artery disease) ([facility]) 01/21/2022 Posterior tibial tendinitis of right leg 11/07/2022 Prostate cancer ([facility]) Vascular disease Past Surgical History: Procedure Laterality Date 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/08/2018 Procedure: LEFT MIDFOOT AMPUTATION; Surgeon: Flynn Mann DPM; Location: [facility] OR; Service: Podiatry ANKLE SURGERY Left BYPASS PERONEAL FEMORAL Right 09/07/2018 Procedure: BYPASS PERONEAL FEMORAL, RIGHT SAPHENOUS VEIN HARVEST, COMPLETION ANGIOGRAM; Surgeon: Mohsen Sarabia MD; Location: [facility] NEURO OR; Service: Cardiovascular CARDIAC CATHETERIZATION Left 09/05/2018 Procedure: Angio Lower Extremity; Surgeon: Ben Hahn MD; Location: [facility] VENEREAL DISEASE CONTROL HEAD; Service: Cardiovascular CARDIAC SURGERY 2017 triple bypass EGD N/A 10/10/2018 Procedure: ESOPHAGOGASTRODUODENOSCOPY; Surgeon: Ben Jensen MD; [place]: [facility] [place]; Service: Gastroenterology EYE SURGERY Right 2015 [...] Resource Strain: Low Risk (06/21/2024) Received from [facility] Overall Financial Resource Strain (CARDIA) Difficulty of Paying Living Expenses: Not hard at all Food Insecurity: No Food Insecurity (06/21/2024) Received from [facility] Hunger Vital Sign Worried About Running Out of Food in the Last Year: Never true Ran Out of Food in the Last Year: Never true Transportation Needs: No Transportation Needs (06/21/2024) Received from [facility] PRAPARE - Transportation Lack of Transportation (Medical): No Lack of Transportation (Non-Medical): No Physical Activity: Insufficiently Active (06/21/2024) Received from [facility] Exercise Vital Sign Days of Exercise per Week: 7 days Minutes of Exercise per Session: 10 min Stress: No Stress Concern Present (06/21/2024) Received from [facility] [employer] - Occupational Stress Questionnaire Feeling of Stress : Not at all Housing Stability: Low Risk (06/21/2024) Received from [facility] Housing Stability Vital Sign Unable to Pay for Housing in the Last Year: No Number of Times Moved in the Last Year: 0 Homeless in the Last Year: No Cosigned by Mohsen Sarabia MD at 03/16/2025 10:33 AM EDT [facility] History and Physical Note 03/14/25 Tristin Powell 1940 [id number] Assessment/Plan: Tristin Powell is a 85 y.o. male with a history of Peripheral Artery Disease s/p Bypass, Afib (Xarelto), Diastolic Heart Failure, Coronary Artery Disease s/p CABG, Hypertension, CKD III, COPD, Prostate Cancer, and Insomnia. Patient had outpatient angiogram 03/12/25 with balloon angioplasty. He presented to [facility] ED on 03/14/2025 from Vascular Surgery clinic with intractable right foot pain. In ED: right YAMILE 0.5; 50-99% stenosis in right mid superficial femoral artery; WBC 3.5. Course prolonged due to need for angiogram and Xarelto washout. Peripheral Artery Disease: Followed by Dr. Beaver ([facility]) and Dr. Sarabia (Vascular Surgery) [...] additional for acute pain. CAD: Followed by [facility] Cardiology s/p 3 vessel coronary artery bypass grafting in 2017 and 7 stents. Chronic Diastolic Heart Failure: TTE 04/2024: LVEF 55% grade 1 diastolic dysfunction, moderate aortic regurgitation, moderate mitral regurgitation, mild tricuspid regurgitation. Appeared euvolemic on admission. Continued home losartan and lasix every other day. Paroxysmal Afib: [id number] of 5. Xarelto as above (no indication [...] lovenox. 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 Barraza (Vascular Surgery) - likely angiogram on Monday; no surgical intervention. ROS: 10 systems were reviewed and negative, except as noted above. Past Medical, Surgical, Social, Family History: Past Medical History: Diagnosis Date Arthritis Avascular necrosis of bone of hip ([facility]) Claudication COPD (chronic obstructive pulmonary disease) ([facility]) Coronary artery disease Herpes zoster Hyperlipidemia Hypertension PAD (peripheral artery disease) ([facility]) 01/21/2022 Posterior tibial tendinitis of right leg 11/07/2022 Prostate cancer ([facility]) Vascular disease Past Surgical History: Procedure Laterality Date 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/08/2018 Procedure: LEFT MIDFOOT AMPUTATION; Surgeon: Flynn Mann DPM; Location: [facility] OR; Service: Podiatry ANKLE SURGERY Left BYPASS PERONEAL FEMORAL Right 09/07/2018 Procedure: BYPASS PERONEAL FEMORAL, RIGHT SAPHENOUS VEIN HARVEST, COMPLETION ANGIOGRAM; Surgeon: Mohsen Sarabia MD; Location: [facility] NEURO OR; Service: Cardiovascular CARDIAC CATHETERIZATION Left 09/05/2018 Procedure: Angio Lower Extremity; Surgeon: Ben Hahn MD; Location: [facility] VENEREAL DISEASE CONTROL HEAD; Service: Cardiovascular CARDIAC SURGERY 2017 triple bypass EGD N/A 10/10/2018 Procedure: ESOPHAGOGASTRODUODENOSCOPY; Surgeon: Ben Jensen MD; [place] [facility] [place]; Service: Gastroenterology EYE SURGERY Right 2015 [...] (two) times a day / tab . Calmoseptine 0.44-20.6 % Oint (Patient [...] to contact me via the [facility] Directory if any error has made critical portions of the note difficult to interpret. [1] Social History Socioeconomic History Marital status: Tobacco Use Smoking status: Never Smokeless tobacco: Never Vaping Use Vaping status: Never Used Substance and Sexual Activity Alcohol use: Not Currently Drug use: Never Sexual activity: Not Currently Social Drivers of Health Financial Resource Strain: Low Risk (06/21/2024) Received from [facility] Overall Financial Resource Strain (CARDIA) Difficulty of Paying Living Expenses: Not hard at all Food Insecurity: No Food Insecurity (06/21/2024) Received from [facility] Hunger Vital Sign Worried About Running Out of Food in the Last Year: Never true Ran Out of Food in the Last Year: Never true Transportation Needs: No Transportation Needs (06/21/2024) Received from [facility] PRAPARE - Transportation Lack of Transportation (Medical): No Lack of Transportation (Non-Medical): No Physical Activity: Insufficiently Active (06/21/2024) Received from [facility] Exercise Vital Sign Days of Exercise per Week: 7 days Minutes of Exercise per Session: 10 min Stress: No Stress Concern Present (06/21/2024) Received from [facility] [employer] - Occupational Stress Questionnaire Feeling of Stress : Not at all Housing Stability: Low Risk (06/21/2024) Received from [facility] Housing Stability Vital Sign Unable to Pay for Housing in the Last Year: No Number of Times Moved in the Last Year: 0 Homeless in the Last Year: No documented in this encounter [facility] 03-17-2025 Progress note Formatting of [...] available as needed for any cardiac issues. [facility] 03-17-2025 Note [facility] Inpatient Pro lucy Note 03/17/2025 Tristin Powell 1940 [id number] Assessment/Plan: Tristin Powell is a 85 y.o. male with a history of Peripheral Artery Disease s/p Bypass, Afib (Xarelto), Diastolic Heart Failure, Coronary Artery Disease s/p CABG, recent balloon angioplasty 03/12/2025,. presented to [facility] ED on 03/14/2025 from Vascular Surgery clinic with intractable right foot pain. Found to have critical right LE ischemia Critical right lower limb ischemia: History of PAD. Follows Dr. Beaver ([facility] Surgery) and Dr. Sarabia (Vascular Surgery) [...] dose. IV Dilaudid added. CAD: Followed by [facility] Cardiology s/p 3 vessel coronary artery bypass [...] per Medication Reconciliation: Reviewed using patient interview, auto brake technician Current living situation: home Expected Disposition: [...] major joint deformity: RLE tired leg and dry house tender to touch. Moving well with mild [...] Oral After evening (more content not included)... [facility] 03-17-2025 Note Formatting of this n ote might be different from the original. PHYSICAL THERAPY VISIT VARIANCE NOTE Attempted to see patient at this time, but unable secondary to: Awaiting Medical Clearance (comment) (scheduled for OR today). Will follow up as appropriate. [facility] 03-17-2025 Note Formatting of this n ote might be different from the original. OCCUPATIONAL THERAPY VISIT VARIANCE NOTE Attempted to see patient at this time, but unable secondary to: Awaiting Medical Clearance (Pending OR today). Will follow up as appropriate. [facility] 03-16-2025 Note VASCULAR SURGERY PRO [...] left TMA who presented to [facility] on 03/14/2025 with worsening RLE pain and [...] Beena Barraza MD General Surgery Resident, PGY-2 [facility] Please contact surgical project management intern licensed occupational therapist 5PM-6AM and weekends - #[phone] VTS Pager - #[phone] Subjective NAEO. Is ready for surgery tomorrow, [...] AUTHENTICATED BY BEENA BARRAZA, ON 03/16/2025 11:03:23 [facility] 03-16-2025 Note Endovascular team no te: I [...] and rubor. He had undergone angiography in [place], with chronic occlusion of an aneurysm/ectatic right [...] AUTHENTICATED BY MARY MAST, ON 03/16/2025 10:52:42 [facility] 03-16-2025 Note [facility] Inpatient Pro lucy Note 03/16/2025 Tristin Powell 1940 [id number] Assessment/Plan: Tristin Powell is a 85 y.o. male with a history of Peripheral Artery Disease s/p Bypass, Afib (Xarelto), Diastolic Heart Failure, Coronary Artery Disease s/p CABG, Hypertension, CKD III, COPD, Prostate Cancer, and Insomnia. Patient had outpatient angiogram 03/12/25 with balloon angioplasty. He presented to [facility] ED on 03/14/2025 from Vascular Surgery clinic with intractable right foot pain. In ED: right YAMILE 0.5; 50-99% stenosis in right mid superficial femoral artery; WBC 3.5. Course prolonged due to need for angiogram and Xarelto washout. Peripheral Artery Disease: Followed by Dr. Beaver ([facility] Surgery) and Dr. Sarabia (Vascular Surgery) [...] additional for acute pain. CAD: Followed by [facility] Cardiology s/p 3 vessel coronary artery bypass [...] GTT Medication Reconciliation: Reviewed using patient interview, auto brake technician Current living situation: home Expected Disposition: [...] major joint deformity: RLE tired leg and dry house tender to touch. Moving well with mild [...] 159 -- 144* (more content not included)... [facility] 03-15-2025 Progress note Formatting of t his [...] working appropriately Verified by note author and VAN Jean. [facility] 03-15-2025 Consult note Associated Order (s): IP CONSULT TO CARE MANAGEMENT Care Management Consult Note Date: 03/15/2025 Time: 12:32 PM Patient Name: Tristin Pwoell Date of : 1940 Reason for Consult: Discharge Plan: D/C Disposition: Home Health Care Services Related to Current Admission?: Yes Plan A: Home Health Care Services Plan B: Home Discharging Transportation Plan: Transportation Type: Auto Discharge Plan Status: [employer] POWER PLANT MANAGER consulted for discharge needs. PT recommending therapy 2-3 days per week. OT pending. [employer] POWER PLANT MANAGER met with pt at bedside to discuss HHC level of care. Pt agreeable HHC. Pt with no [preference of agency. Pt's son will be primary caregiver upon discharge and will transport pt home when medically ready. [employer] POWER PLANT MANAGER confirmed pt demographics including address on file, [...] impact how we deliver your care?: No [facility] 03-15-2025 Note [facility] Inpatient Pro lucy Note 03/15/2025 Tristin Powell 1940 [id number] Assessment/Plan: Tristin Powell is a 85 y.o. male with a history of Peripheral Artery Disease s/p Bypass, Afib (Xarelto), Diastolic Heart Failure, Coronary Artery Disease s/p CABG, Hypertension, CKD III, COPD, Prostate Cancer, and Insomnia. Patient had outpatient angiogram 03/12/25 with balloon angioplasty. He presented to [facility] ED on 03/14/2025 from Vascular Surgery clinic with intractable right foot pain. In ED: right YAMILE 0.5; 50-99% stenosis in right mid superficial femoral artery; WBC 3.5. Course prolonged due to need for angiogram and Xarelto washout. Peripheral Artery Disease: Followed by Dr. Beaver ([facility] Surgery) and Dr. Sarabia (Vascular Surgery) [...] additional for acute pain. CAD: Followed by [facility] Cardiology s/p 3 vessel coronary artery bypass [...] GTT Medication Reconciliation: Reviewed using patient interview, auto brake technician Current living situation: home Expected Disposition: [...] major joint deformity: RLE tired leg and dry house tender to touch. Moving well with mild [...] g/dL 11.7* 13.2* (more content not included)... [facility] 03-15-2025 Consult note Formatting of th is note is different from the original. Physical Therapy PHYSICAL THERAPY EVALUATION and TREATMENT NOTE PHYSICAL THERAPY EVALUATION Skilled Therapy Needs After Discharge Anticipate Resolution of Current Assessment Limitations Including: Mechanical Barriers, Pain Are wire stretcher Therapy Services Needed After Discharge: Yes Intensity of wire stretcher Therapy: 2-3 days per week Anticipated Duration of wire stretcher Therapy: Duration 10 - 30 days PT [...] Standing Balance - Static: Contact guard assist Financial Reserve Clerk - Standing Static: wheeled walker Standing Balance - Dynamic: Contact guard assist Financial Reserve Clerk - Standing Dynamic: same clinical laboratory aide used for static standing tasks Bed Mobility Rolling: Supervision Supine to Sit: Supervision Sit to Supine: (patient sitting EOB) Financial Reserve Clerk: bedrails Transfers Sit to Stand: Contact guard assist Financial Reserve Clerk: wheeled walker Gait/Locomotion Gait Assistance: Contact guard [...] walker.) Prior Level of Function Level of [place] - Transfers/Ambulation/Mobility: Independent with community ambulation, Independent with household ambulation, Independent with functional transfers Level of [place] - ADLs: Independent Level of [place] - Homemaking: Independent Driving: Patient drives Vocational: [...] Arthritis Avascular necrosis of bone of hip ([facility]) Claudication COPD (chronic obstructive pulmonary disease) ([facility]) Coronary artery disease Herpes zoster Hyperlipidemia Hypertension PAD (peripheral artery disease) ([facility]) 01/21/2022 Posterior tibial tendinitis of right leg 11/07/2022 Prostate cancer ([facility]) Vascular disease Past Surgical History: Procedure Laterality Date 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/08/2018 Procedure: LEFT MIDFOOT AMPUTATION; Surgeon: Flynn Mann DPM; Location: [facility]; Service: Podiatry ANKLE SURGERY Left BYPASS PERONEAL FEMORAL Right 09/07/2018 Procedure: BYPASS PERONEAL FEMORAL, RIGHT SAPHENOUS VEIN HARVEST, COMPLETION ANGIOGRAM; Surgeon: Mohsen Sarabia MD; Location: [facility] NEURO OR; Service: Cardiovascular CARDIAC CATHETERIZATION Left 09/05/2018 Procedure: Angio Lower Extremity; Surgeon: Ben Hahn MD; Location: [facility] VENEREAL DISEASE CONTROL HEAD; Service: Cardiovascular CARDIAC SURGERY 2017 triple bypass EGD N/A 10/10/2018 Procedure: ESOPHAGOGASTRODUODENOSCOPY; Surgeon: Ben Jensen MD; [place] [facility] [place]; Service: Gastroenterology EYE SURGERY Right 2014 [...] hospital or completion of Physical Therapy Plan. [facility] 03-15-2025 Note Peripheral Vascular Cardiology Inpatient Follow-up Heart & Vascular [facility] 03/15/2025 Mirna Fenton, [facility] Patient: Tristin Powell Date of : 1940 (85 y.o.) PCP: Flash Lovelace MD Assessment/Plan: Carotid stenosis, asymptomatic, bilateral Assessment & Plan Asymptomatic. No hx of CVA Non-invasive Studies: Carotid Duplex (04/2024): Left ICA with mild <50% stenosis of heterogenous plaque. Right ICA with moderate 50-69% stenosis of heterogenous plaque Coronary artery disease involving coronary bypass graft of [place] heart without angina pectoris Assessment & Plan S/p 3v CABG in 2017 Asymptomatic Critical lower limb ischemia (HCC) Assessment & Plan Presents from Dr. 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 Plan for RLE angio +/- [...] Final Result by Interface, Lab Results In [place] (03/15/2025 0701) Echocardiogram complete w contrast Final [...] Q4H While a (more content not included)... [facility] 03-14-2025 Emergency department Note Pt placed on 2L NC now [facility] 03-14-2025 Emergency department Note Pt placed on 2L NC now [facility] to write admission orders [id number] ED PROVIDER NOTE [facility] EMERGENCY DEPARTMENT Patient Name: Tristin [...] Course User Index [EK] Elaine Macdonald MD [facility] Data: I saw and evaluated the patient. [...] (HCC) Claudication COPD (chronic obstructive pulmonary disease) ([facility]) Coronary artery disease Herpes zoster Hyperlipidemia Hypertension PAD (peripheral artery disease) ([facility]) 01/21/2022 Posterior tibial tendinitis of right leg 11/07/2022 Prostate cancer ([facility]) Vascular disease Past Surgical History: Procedure Laterality Date 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/08/2018 Procedure: LEFT MIDFOOT AMPUTATION; Surgeon: Flynn Mann DPM; Location: [facility] OR; Service: Podiatry ANKLE SURGERY Left BYPASS PERONEAL FEMORAL Right 09/07/2018 Procedure: BYPASS PERONEAL FEMORAL, RIGHT SAPHENOUS VEIN HARVEST, COMPLETION ANGIOGRAM; Surgeon: Mohsen Sarabia MD; Location: [facility] NEURO OR; Service: Cardiovascular CARDIAC CATHETERIZATION Left 09/05/2018 Procedure: Angio Lower Extremity; Surgeon: Ben Hahn MD; Location: [facility] VENEREAL DISEASE CONTROL HEAD; Service: Cardiovascular CARDIAC SURGERY 2017 triple bypass EGD N/A 10/10/2018 Procedure: ESOPHAGOGASTRODUODENOSCOPY; Surgeon: Ben Jensen MD; [place] [facility] [place]; Service: Gastroenterology EYE SURGERY Right 2015 [...] correspondence this note was partially generated by [employer] voice recognition software and is inherently subject [...] Resource Strain: Low Risk (06/21/2024) Received from [facility] Overall Financial Resource Strain (CARDIA) Difficulty of Paying Living Expenses: Not hard at all Food Insecurity: No Food Insecurity (06/21/2024) Received from [facility] Hunger Vital Sign Worried About Running Out of Food in the Last Year: Never true Ran Out of Food in the Last Year: Never true Transportation Needs: No Transportation Needs (06/21/2024) Received from [facility] PRAPARE - Transportation Lack of Transportation (Medical): No Lack of Transportation (Non-Medical): No Physical Activity: Insufficiently Active (06/21/2024) Received from [facility] Exercise Vital Sign Days of Exercise per Week: 7 days Minutes of Exercise per Session: 10 min Stress: No Stress Concern Present (06/21/2024) Received from [facility] [employer] - Occupational Stress Questionnaire Feeling of Stress : Not at all Housing Stability: Low Risk (06/21/2024) Received from [facility] Housing Stability Vital Sign Unable to [...] All Patient Name: Tristin Powell MR #: [id number] Subjective: office nurse received call from daughter who expressed concern about patient losing his foot- he is in dire pain and his toes on his right foot are turning purple. Dr. Sarabia requested US Duplex Arterial RLE and ABIs, and here for office visit today documented in this encounter [facility] 03-14-2025 Progress note Formatting of t his note might be different from the original. Added to greens laborer schedule for 03/17/25, with Dr. Mast for a RLE angio +/- intervention. Orders placed. Consent signed and given to greens laborer. ASA and clopidogrel initiated. Again, no heparin gtt required unless needed in the setting of hx of paroxysmal a.fib (historically on Xarelto; however, has been held over the past week 2/2 RLE angio at [facility] as performed on 03/12/25). Additionally, please [...] grossly insensate from toes to the ankle. [facility] 03-14-2025 Progress note Formatting of t his note might be different from the original. This nurse was able to get RLE angiogram from March 12, 2025 from [facility] sent electronically. This was sent to Juana Escobar NP. She was able to open and view. Images sent to appropriate staff per Juana Escobar CNP. Called and notified the patient's daughter that she does not have to get the disc from [place] and bring to [facility]. [facility] 03-14-2025 Evaluation + Plan note Associated Problem(s): Carotid stenosis, asymptomatic, bilateral Asymptomatic. No hx of CVA Non-invasive Studies: Carotid Duplex (04/2024): Left ICA with mild <50% stenosis of heterogenous plaque. Right ICA with moderate 50-69% stenosis of heterogenous plaque [facility] 03-14-2025 Evaluation + Plan note Associated Problem(s): Coronary artery disease involving coronary bypass graft of [place] heart without angina pectoris S/p 3v CABG in 2017 Asymptomatic [facility] 03-14-2025 Evaluation + Plan note [...] Recently underwent RLE angio on 03/12/25 via [facility] in [place] Non-invasive Studies: RLE arterial duplex (03/14/25): 50-99% [...] will continue to monitor over the weekend [facility] 03-14-2025 Evaluation + Plan note Associated Problem(s): PAD (peripheral artery disease) (HCC) Longstanding, significant atherosclerotic disease with history of multiple endovascular and surgical interventions as outlined in the body of this note, please reference Plan: Continue ASA and statin therapies as prescribed. [facility] 03-14-2025 Consult note Associated Order (s): IP CONSULT TO CARDIOLOGY - PERIPHERAL VASC DISEASE Images from the original note were not included. Peripheral Vascular Cardiology Inpatient Consult Heart & Vascular [facility] 03/14/2025 Demetrice Escobar CNP [id number] [id number] Patient: Tristin Powell Date of : 1940 [...] Recently underwent RLE angio on 03/12/25 via [facility] in [place] Non-invasive Studies: RLE arterial duplex (03/14/25): 50-99% [...] RLE angiograms dated 03/12/25 and 10/12/23 from [facility]. Will review non-invasive studies as obtained earlier today as well as [facility] RLE angiograms with PV attending. Final disposition [...] outpatient Vasc Surg Admission requested by Dr. Sarabia et al, Vasc Surg, based on outpatient visit conducted earlier today in view of complaints of excruciating right foot pain (particularly right hallux) and concerns for discoloration and digital ischemia. Pain NOT relieved with opioids. Per ED MD, no surgical options, PV consult recommended by Vasc Surg for consideration of LE angio. By chart review, recently underwent formal LE angio on 03/12/25 via [facility]. Follows with Dr. Juarez, cardiology, at [facility]. Last OV 11/2024. Son is present [...] was drawn out. Relevant Vascular History: 06/2024: [facility] demonstrating stable coronary artery disease. Patent [...] SVG to PDA) via [facility] 10/2007: [facility] with MARIA ESTHER to LAD and LCx Objective Imaging: I independently reviewed the non-invasive vascular studies and agree with the interpretation(s) ECG 12 Lead Final Result by Interface, Lab Results In [place] [facility] (11/07/2022 1139) Echocardiogram complete w contrast [...] Arthritis Avascular necrosis of bone of hip ([facility]) Claudication COPD (chronic obstructive pulmonary disease) ([facility]) Coronary artery disease Herpes zoster Hyperlipidemia Hypertension PAD (peripheral artery disease) ([facility]) 01/21/2022 Posterior tibial tendinitis of right leg 11/07/2022 Prostate cancer ([facility]) Vascular disease Past Surgical History: Procedure Laterality Date 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/08/2018 Procedure: LEFT MIDFOOT AMPUTATION; Surgeon: Flynn Mann DPM; Location: [facility] OR; Service: Podiatry ANKLE SURGERY Left BYPASS PERONEAL FEMORAL Right 09/07/2018 Procedure: BYPASS PERONEAL FEMORAL, RIGHT SAPHENOUS VEIN HARVEST, COMPLETION ANGIOGRAM; Surgeon: Mohsen Sarabia MD; Location: [facility] OR; Service: Cardiovascular CARDIAC CATHETERIZATION Left 09/05/2018 Procedure: Angio Lower Extremity; Surgeon: Ben Hahn MD; Location: [facility] VENEREAL DISEASE CONTROL HEAD; Service: Cardiovascular CARDIAC SURGERY 2017 triple bypass EGD N/A 10/10/2018 Procedure: ESOPHAGOGASTRODUODENOSCOPY; Surgeon: Ben Jensen MD; [place] [facility]; Service: Gastroenterology EYE SURGERY Right 2015 [...] (two) times a day / tab . AZELASTINE (ASTELIN) 137 MCG (0.1 [...] to contact me, my mobile number is [phone]. Respectfully, Demetrice Martinez APRN [facility] Heart and Vascular Physicians [1] Social History Tobacco Use Smoking Status Never Smokeless Tobacco Never Cosigned by Ben Hahn MD at 03/14/2025 4:44 PM EDT Associated attestation - Ben aHhn MD - 03/14/2025 4:44 PM EDT Interventional & Peripheral Vascular Cardiology Tristin Powell is a 85 y.o. male with a past medical history significant for CAD with prior CABG, hypertension, stage III CKD, hyperlipidemia, heart failure with preserved ejection fraction, paroxysmal atrial fibrillation, and advanced PAD who presents with [place] 4 critical limb threatening ischemia of the [...] He underwent angiography 2 days ago in [place] where he was found to have progressive [...] Arthritis Avascular necrosis of bone of hip ([facility]) Claudication COPD (chronic obstructive pulmonary disease) ([facility]) Coronary artery disease Herpes zoster Hyperlipidemia Hypertension PAD (peripheral artery disease) ([facility]) 01/21/2022 Posterior tibial tendinitis of right leg 11/07/2022 Prostate cancer ([facility]) Vascular disease Allergies: Doxycycline and Gabapentin Current [...] vascular surgery colleagues I personally performed a [id number] diagnostic evaluation on this patient on the [...] 0.5 mg 0.5 mg Intravenous Q3H PRN [place], Muna Bhatti MD naloxone (NARCAN) injection 0.1 mg 0.1 mg Intravenous PRN [place], Muna Bhatti MD And naloxone (NARCAN) injection 0.4 mg 0.4 mg Intravenous PRN [place], Muna Bhatti MD ondansetron (ZOFRAN) injection 4 mg 4 mg Intravenous Q6H PRN [place], Muna Bhatti MD oxyCODONE-acetaminophen (PERCOCET) 5-325 mg per tablet 1 tablet 1 tablet Oral Q6H PRN KingwoodMuna denise MD sodium chloride (PF) (NS) flush 5 [...] mL vaccine urea (CARMOL) 40 % Crea [facility] 03-14-2025 History and physical note [facility] History and Physical Note 03/14/25 Tristin Hortensia Sherry 1940 [id number] Assessment/Plan: Tristin Powell is a 85 y.o. male with a history of Peripheral Artery Disease s/p Bypass, Afib (Xarelto), Diastolic Heart Failure, Coronary Artery Disease s/p CABG, Hypertension, CKD III, COPD, Prostate Cancer, and Insomnia. Patient had outpatient angiogram 03/12/25 with balloon angioplasty. He presented to [facility] ED on 03/14/2025 from Vascular Surgery clinic with intractable right foot pain. In ED: right YAMILE 0.5; 50-99% stenosis in right mid superficial femoral artery; WBC 3.5. Course prolonged due to need for angiogram and Xarelto washout. Peripheral Artery Disease: Followed by Dr. Beaver ([facility]) and Dr. Sarabia (Vascular Surgery) [...] additional for acute pain. CAD: Followed by [facility] Cardiology s/p 3 vessel coronary artery bypass grafting in 2017 and 7 stents. Chronic Diastolic Heart Failure: TTE 04/2024: LVEF 55% grade 1 diastolic dysfunction, moderate aortic regurgitation, moderate mitral regurgitation, mild tricuspid regurgitation. Appeared euvolemic on admission. Continued home losartan and lasix every other day. Paroxysmal Afib: [id number] of 5. Xarelto as above (no indication [...] lovenox. 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 Barraza (Vascular Surgery) - likely angiogram on Monday; no surgical intervention. ROS: 10 systems were reviewed and negative, except as noted above. Past Medical, Surgical, Social, Family History: Past Medical History: Diagnosis Date Arthritis Avascular necrosis of bone of hip ([facility]) Claudication COPD (chronic obstructive pulmonary disease) ([facility]) Coronary artery disease Herpes zoster Hyperlipidemia Hypertension PAD (peripheral artery disease) ([facility]) 01/21/2022 Posterior tibial tendinitis of right leg 11/07/2022 Prostate cancer ([facility]) Vascular disease Past Surgical History: Procedure Laterality Date 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/08/2018 Procedure: LEFT MIDFOOT AMPUTATION; Surgeon: Flynn Mann DPM; Location: [facility] OR; Service: Podiatry ANKLE SURGERY Left BYPASS PERONEAL FEMORAL Right 09/07/2018 Procedure: BYPASS PERONEAL FEMORAL, RIGHT SAPHENOUS VEIN HARVEST, COMPLETION ANGIOGRAM; Surgeon: Mohsen Sarabia MD; Location: [facility] OR; Service: Cardiovascular CARDIAC CATHETERIZATION Left 09/05/2018 Procedure: Angio Lower Extremity; Surgeon: Ben Hahn MD; Location: [facility] VENEREAL DISEASE CONTROL HEAD; Service: Cardiovascular CARDIAC SURGERY 2017 triple bypass EGD N/A 10/10/2018 Procedure: ESOPHAGOGASTRODUODENOSCOPY; Surgeon: Ben Jensen MD; [place] [facility]; Service: Gastroenterology EYE SURGERY Right 2015 [...] (two) times a day / tab . Calmoseptine 0.44-20.6 % Oint (Patient [...] to contact me via the [facility] Directory if any error has made critical portions of the note difficult to interpret. [1] Social History Socioeconomic History Marital status: Tobacco Use Smoking status: Never Smokeless tobacco: Never Vaping Use Vaping status: Never Used Substance and Sexual Activity Alcohol use: Not Currently Drug use: Never Sexual activity: Not Currently Social Drivers of Health Financial Resource Strain: Low Risk (06/21/2024) Received from [facility] Overall Financial Resource Strain (CARDIA) Difficulty of Paying Living Expenses: Not hard at all Food Insecurity: No Food Insecurity (06/21/2024) Received from [facility] Hunger Vital Sign Worried About Running Out of Food in the Last Year: Never true Ran Out of Food in the Last Year: Never true Transportation Needs: No Transportation Needs (06/21/2024) Received from [facility] PRAPARE - Transportation Lack of Transportation (Medical): No Lack of Transportation (Non-Medical): No Physical Activity: Insufficiently Active (06/21/2024) Received from [facility] Exercise Vital Sign Days of Exercise per Week: 7 days Minutes of Exercise per Session: 10 min Stress: No Stress Concern Present (06/21/2024) Received from [facility] [employer] - Occupational Stress Questionnaire Feeling of Stress : Not at all Housing Stability: Low Risk (06/21/2024) Received from [facility] Housing Stability Vital Sign Unable to Pay for Housing in the Last Year: No Number of Times Moved in the Last Year: 0 Homeless in the Last Year: No [facility] 03-14-2025 Note [facility] History and P hysical Note 03/14/25 Tristin Powell 1940 [id number] Assessment/Plan: Tristin Powell is a 85 y.o. male with a history of Peripheral Artery Disease s/p Bypass, Afib (Xarelto), Diastolic Heart Failure, Coronary Artery Disease s/p CABG, Hypertension, CKD III, COPD, Prostate Cancer, and Insomnia. Patient had outpatient angiogram 03/12/25 with balloon angioplasty. He presented to [facility] ED on 03/14/2025 from Vascular Surgery clinic with intractable right foot pain. In ED: right YAMILE 0.5; 50-99% stenosis in right mid superficial femoral artery; WBC 3.5. Course prolonged due to need for angiogram and Xarelto washout. Peripheral Artery Disease: Followed by Dr. Beaver ([facility] Surgery) and Dr. Sarabia (Vascular Surgery) [...] additional for acute pain. CAD: Followed by [facility] Cardiology s/p 3 vessel coronary artery bypass grafting in 2017 and 7 stents. Chronic Diastolic Heart Failure: TTE 04/2024: LVEF 55% grade 1 diastolic dysfunction, moderate aortic regurgitation, moderate mitral regurgitation, mild tricuspid regurgitation. Appeared euvolemic on admission. Continued home losartan and lasix every other day. Paroxysmal Afib: [id number] of 5. Xarelto as above (no indication [...] lovenox. 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 Barraza (Vascular Surgery) - likely angiogram on Monday; no surgical intervention. ROS: 10 systems were reviewed and negative, (more content not included)... [facility] 03-14-2025 Emergency department Note MEDONE to write admission orders [id number] [facility] 03-14-2025 Physician Emergency department Note ED PROVIDER NOTE [facility] EMERGENCY DEPARTMENT Patient Name: Tristin [...] Course User Index [EK] Elaine Macdonald MD [facility] Data: I saw and evaluated the patient. [...] Arthritis Avascular necrosis of bone of hip ([facility]) Claudication COPD (chronic obstructive pulmonary disease) ([facility]) Coronary artery disease Herpes zoster Hyperlipidemia Hypertension PAD (peripheral artery disease) ([facility]) 01/21/2022 Posterior tibial tendinitis of right leg 11/07/2022 Prostate cancer ([facility]) Vascular disease Past Surgical History: Procedure Laterality Date 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/08/2018 Procedure: LEFT MIDFOOT AMPUTATION; Surgeon: Flynn Mann DPM; Location: [facility] OR; Service: Podiatry ANKLE SURGERY Left BYPASS PERONEAL FEMORAL Right 09/07/2018 Procedure: BYPASS PERONEAL FEMORAL, RIGHT SAPHENOUS VEIN HARVEST, COMPLETION ANGIOGRAM; Surgeon: Mohsen Sarabia MD; Location: [facility] OR; Service: Cardiovascular CARDIAC CATHETERIZATION Left 09/05/2018 Procedure: Angio Lower Extremity; Surgeon: Ben Hahn MD; Location: [facility] VENEREAL DISEASE CONTROL HEAD; Service: Cardiovascular CARDIAC SURGERY 2017 triple bypass EGD N/A 10/10/2018 Procedure: ESOPHAGOGASTRODUODENOSCOPY; Surgeon: Ben Jensen MD; [place] [facility] [place]; Service: Gastroenterology EYE SURGERY Right 2015 [...] correspondence this note was partially generated by [employer] voice recognition software and is inherently subject [...] Resource Strain: Low Risk (06/21/2024) Received from [facility] Overall Financial Resource Strain (CARDIA) Difficulty of Paying Living Expenses: Not hard at all Food Insecurity: No Food Insecurity (06/21/2024) Received from [facility] Hunger Vital Sign Worried About Running Out of Food in the Last Year: Never true Ran Out of Food in the Last Year: Never true Transportation Needs: No Transportation Needs (06/21/2024) Received from [facility] PRAPARE - Transportation Lack of Transportation (Medical): No Lack of Transportation (Non-Medical): No Physical Activity: Insufficiently Active (06/21/2024) Received from [facility] Exercise Vital Sign Days of Exercise per Week: 7 days Minutes of Exercise per Session: 10 min Stress: No Stress Concern Present (06/21/2024) Received from [facility] [employer] - Occupational Stress Questionnaire Feeling of Stress : Not at all Housing Stability: Low Risk (06/21/2024) Received from [facility] Housing Stability Vital Sign Unable to Pay for Housing in the Last Year: No Number of Times Moved in the Last Year: 0 Homeless in the Last Year: No [2] Allergies Allergen Reactions Doxycycline Elevated blood pressure, GI intolerance/ nausea/vomiting Gabapentin GI Intolerance [facility] 03-14-2025 History of Present illness Narrative STAT Medical Records Release form faxed to [phone]. Fax confirmation received. documented in this encounter [facility] 03-14-2025 Consult note Formatting of [...] left TMA who presented to [facility] on 03/14/2025 with worsening RLE pain and discoloration. Arterial Duplex (03/14/25): 50-99% stenosis in the right mid SFA YAMILE's (03/14/25): Right YAMILE is 0.50. Left YAMILE is 0.55. CTLI IV Aortic Stenosis -Patient w/ notable history of PAD s/p left fem to peroneal bypass (2018, [place]) p/w RLE rest pain x 3 days. [...] Beena Barraza MD General Surgery Resident, PGY-2 [facility] Please contact surgical project management intern licensed occupational therapist 5PM-6AM and weekends - #[phone] VTS Pager - #[phone] Admitted with these risk variables:None. Please see [...] Arthritis Avascular necrosis of bone of hip ([facility]) Claudication COPD (chronic obstructive pulmonary disease) ([facility]) Coronary artery disease Herpes zoster Hyperlipidemia Hypertension PAD (peripheral artery disease) ([facility]) 01/21/2022 Posterior tibial tendinitis of right leg 11/07/2022 Prostate cancer ([facility]) Vascular disease Past Surgical History: Procedure Laterality Date 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/08/2018 Procedure: LEFT MIDFOOT AMPUTATION; Surgeon: Flynn Mann DPM; Location: [facility] OR; Service: Podiatry ANKLE SURGERY Left BYPASS PERONEAL FEMORAL Right 09/07/2018 Procedure: BYPASS PERONEAL FEMORAL, RIGHT SAPHENOUS VEIN HARVEST, COMPLETION ANGIOGRAM; Surgeon: Mohsen Sarabia MD; Location: [facility] OR; Service: Cardiovascular CARDIAC CATHETERIZATION Left 09/05/2018 Procedure: Angio Lower Extremity; Surgeon: Ben Hahn MD; Location: [facility] VENEREAL DISEASE CONTROL HEAD; Service: Cardiovascular CARDIAC SURGERY 2017 triple bypass EGD N/A 10/10/2018 Procedure: ESOPHAGOGASTRODUODENOSCOPY; Surgeon: Ben Jensen MD; Location: [facility]; Service: Gastroenterology EYE SURGERY Right 2015 FOOT [...] Resource Strain: Low Risk (06/21/2024) Received from [facility] Overall Financial Resource Strain (CARDIA) Difficulty of Paying Living Expenses: Not hard at all Food Insecurity: No Food Insecurity (06/21/2024) Received from [facility] Hunger Vital Sign Worried About Running Out of Food in the Last Year: Never true Ran Out of Food in the Last Year: Never true Transportation Needs: No Transportation Needs (06/21/2024) Received from [facility] PRAPARE - Transportation Lack of Transportation (Medical): No Lack of Transportation (Non-Medical): No Physical Activity: Insufficiently Active (06/21/2024) Received from [facility] Exercise Vital Sign Days of Exercise per Week: 7 days Minutes of Exercise per Session: 10 min Stress: No Stress Concern Present (06/21/2024) Received from [facility] [employer] - Occupational Stress Questionnaire Feeling of Stress : Not at all Housing Stability: Low Risk (06/21/2024) Received from [facility] Housing Stability Vital Sign Unable to [...] personally examined the patient and agree with resident/GAME ENGINEER/PA assessment and plan with the following additional findings. Pt known to me with CLTI of the RLE with rest pain and early ischemic skin changes. Plan for R fem tib bypass on Monday for limb salvage [facility] 03-14-2025 History of Present illness Narrative Spoke with Edwina from Medical Records from [facility] to obtain RLE Angiogram from 03/12/25. This Nurse was informed that for imaging if daughter is not POA that the patient would need to sign a release form and have the patient's sign it. She explained to this Nurse that the form will be faxed to [phone]. Edwina also informed this Nurse that they will fax the report for the RLE Angiogram once it is signed. This Nurse verbalized understanding and explained to Edwina that our office will reach out to the daughter to have her case picker the disc for the imaging of RLE Angiogram. Edwina verbalized understanding. All questions answered. documented in this encounter [facility] 03-14-2025 Emergency department Triage note [...] All Patient Name: Tristin Powell MR #: [id number] Subjective: office nurse received call from daughter who expressed concern about patient losing his foot- he is in dire pain and his toes on his right foot are turning purple. Dr. Sarabia requested US Duplex Arterial RLE and ABIs, and here for office visit today [facility] 03-14-2025 History of Present illness Narrative Patient Name: Tristin Powell MR #: [id number] Subjective: office nurse received call from daughter [...] had a right angiogram attempted at the [facility] on Monday03/12/2025 but was told they [...] this Will attempt to get angiogram from [facility] from 03/12/2025; may need to repeat [...] Johnson CNP 03/14/2025 documented in this encounter [facility] 03-14-2025 Note Patient Name: Tristin Powell MR #: [id number] Subjective: office nurse received call from daughter [...] had a right angiogram attempted at the [facility] on Monday03/12/2025 but was told they [...] this Will attempt to get angiogram from [facility] from 03/12/2025; may need to repeat [...] Ken Johnson CNP 03/14/2025 AUTHENTICATED BY KEN JOHNSON ON 03/14/2025 11:47:35 [facility] 03-13-2025 History of Present illness [...] a 7:45 AM arrival time in the [facility] on the garden level. His ABIs will follow at 9 AM. Then his office visit with Ken Johnson CNP will be at 10 AM on the 5th floor of the [facility], [address]. Instructions provided for how to get to testing and office visit. Daughter verbalized understanding and expressed appreciation. All questions answered. documented in this encounter [facility] 03-11-2025 Evaluation note Diagnosis Onset Date Resolution Peripheral vascular disease acute March 11, 2025 11:20am [facility] Work Phone: 1(998) 732-406207-15-2025 Evaluation note* Diagnosis Onset Date Resolution Status Admit Date Peripheral vascular disease acute March 11, 2025 11:20am Chest pain acute May 02, 2025 4:42pm Dyspnea acute May 02, 2025 4:42pm [facility] Work Phone: 1(493) 596-881707-15-2025 Evaluation note* Diagnosis Onset Date Resolution Status Admit Date Peripheral vascular disease acute March 11, 2025 11:20am Acute respiratory failure wi th hypoxia acute May 04, 2 025 11:19am Chest pain acute May 04, 2025 11:19am COPD exacerbation acute 2024 11:19am Dyspnea acute May 04, 2025 11:19am Hemoptysis acute May 04, 2025 11:19am Lung abscess acute April 11:19am Rhinovirus infection acute Apr 11:19am [facility] Work Phone: 1(996) 176-164806-19-2025 Telephone encounter Note* Telephone Encounter - Megan Douglass - 02/13/2025 3:28 PM EDT zolpidem (Ambien) 10 MG tablet Hydrocodone 5-352 [place] [facility] [id number] Miscellaneous Notes* Telephone Encounter - Megan Douglass - 02/13/2025 3:28 PM EDT zolpidem (Ambien) 10 MG tablet Hydrocodone 5-352 [place] documented in this encounterWashington County Memorial HospitalPplqbvjutf35-75-2404 History of Present illness Narrative* Bhaskar Wilson [...] 2009 Avascular necrosis of bone of hip ([facility]) 09/04/2011 Right hip Right hip CAD (coronary artery disease) ([facility]) 2013 Carotid artery disease ([facility]) Cataract 2013 Cellulitis 01/19/2022 [facility] Cellulitis LLE Colon polyps 2012 Critical lower limb ischemia ([facility]) 09/04/2018 Last Assessment & Plan: Pt s/p LLE angiogram with Dr Hahn who feels that the pt has no further endovascular options. He has consulted Dr. Sarabia for a possible tibial bypass. Pt s/p LLE critical limb ischemia Midland class 4 rest pain with distal discoloration to histoes Gangrene of left foot ([facility]) 10/04/2018 Groin hematoma 2013 RT Femoral groin Hematoma H/O myocardial perfusion scan 07/09/2019 LVEF 56% Myocardial perfusion imaging shows a defect in Apical wall Herpes zoster 09/04/2011 History of being hospitalized 12/06/2020 Strep Pneumonia, Resp. Failure - [facility] History of being hospitalized [place] [facility] 07/15/2021-07/16/2021 History of coronary angiogram [...] incomplete bowel prep Diverticulosis Dr. Rowe at [facility] COLONOSCOPY W/ POLYPECTOMY 2011 CORONARY ARTERY [...] HISTORY 04/25/2022 Diagnostic LE catheterization Dr. Hahn [place] MEDICATION MANAGEMENT 11/2020 Multi resistant Strep Pneumonia, [...] No follow-ups on file. documented in this [facility]05-08-2025 Telephone encounter Note* Telephone Encounter - Megan Douglass - 01/02/2025 10:43 AM EDT oxyCODONE-acetaminophen (Percocet) 5-325 MG tablet [ [place] [facility] HospitalFtmoecxsnd10-62-5874 Miscellaneous Notes* Telephone Encounter - Megan Douglass - 01/02/2025 10:43 AM EDT oxyCODONE-acetaminophen (Percocet) 5-325 MG tablet [ [place] documented in this [facility]04-23-2025 NoteUT Cardiology - [facility] Subjective Tristin Powell is a 84 [...] artery disease involving coronary bypass graft of alatna heart without angina pectoris Coronary artery disease involving alatna coronary artery of alatna heart without angina pectoris Coronary atherosclerosis Critical [...] lower extremity Preinfarction syndrome (CMS/HCC) Prostate cancer ([facility]) S/P total hip arthroplasty Pulmonary nodule S/P [...] Paroxysmal atrial fibrillation (CMS/HCC) Phantom limb pain ([facility]) Polymyalgia rheumatica Primary osteoarthritis of right hip Routine general medical examination at health care facility Seasonal allergic rhinitis Sinusitis Stage 3a chronic kidney disease ([facility]/HCC) Acute cystitis without hematuria Benign essential hypertension Other thrombophilia NSTEMI (non-ST elevated myocardial infarction) ([facility]/HCC) Hx of CABG Coronary artery disease Acquired absence of left leg below knee ([facility]) Other complications of amputation stump ([facility]) Pulmonary hypertension, unspecified ([facility]/HCC) Secondary hypercoagulable state Bronchiectasis, uncomplicated (CMS/HCC) Chronic diastolic (congestive) heart failure ([facility]) Family History Problem Relation Name Age of [...] instent restenosis. He then underwent CABG at [facility] in 2017 (CHAVEZ to diagonal, SVG to [...] a yellow jacket and he went to [place] for evaluation. He had mildly elevated high-sensitivity [...] he feels good. Cuca (more content not included)...[facility] 11-26-2024 Telephone encounter Note* Telephone Encounter - LEONARDA Villavicencio - 11/26/2024 1:04 PM EDT OARRS reviewed, Rx sent into patient's pharmacy. Albuterol also sent. [facility] HospitalKgzldudwni48-34-5849 Miscellaneous Notes* Telephone Encounter - LEONARDA Villavicencio - 11/26/2024 1:04 PM EDT OARRS reviewed, Rx sent into patient's pharmacy. Albuterol also sent. * Telephone Encounter - Megan Douglass - 11/26/2024 10:31 AM EDT oxyCODONE-acetaminophen (Percocet) 5-325 MG tablet [employer] [place] documented in this encounterRobert Ville [id number] Telephone encounter Note* Telephone Encounter - Megan Douglass - 11/26/2024 10:31 AM EDT oxyCODONE-acetaminophen (Percocet) 5-325 MG tablet [facility] [place] [facility] HospitalTdypqjlvzv25-24-3799 History of Present illness Narrative* Elaine Saab [...] States this prescription needs to go to [facility] in [place], [place]. States all other prescriptions go to [facility] pharmacy. Medications reconciled with pt. Pt also needs refill on albuterol HFA 90 mcg/act inhaler. This is to be sent to [facility]. * LEONARDA Villavicencio - 11/25/2024 9:54 AM EDT Will send meds in for pt. documented in this encounterWashington County Memorial HospitalRkyfvcwszn32-59-3385 Telephone encounter Note* Telephone Encounter - Megan Douglass - 10/21/2024 9:32 AM EST Pt scheduled [facility] HospitalAhtqzmznif89-04-7072 Miscellaneous Notes* Telephone Encounter - Megan Douglass - 10/21/2024 9:32 AM EST Pt scheduled * Telephone Encounter - LEONARDA Villavicencio - 10/18/2024 12:38 PM EST Please help pt get set up with Dr. Lovelace for medication follow up appointment in October. OARRS reviewed, Rx sent into patient's pharmacy. documented in this encounterWashington County Memorial HospitalPlfgqdzpcy62-62-5420 Telephone encounter Note* Telephone Encounter - LEONARDA Villavicencio - 10/18/2024 12:38 PM EST Please help pt get set up with Dr. Lovelace for medication follow up appointment in October. OARRS reviewed, Rx sent into patient's pharmacy. [facility] HospitalMqeurnmaqe22-59-7950 History of Present illness Narrative* Ludivina Garcia RN - 09/23/2024 1:09 PM EST Spoke with Nurse from Dr. Beaver's office with [facility] and requested reports for ABIs and US Duplex Bypass Graft LLE be faxed to [phone]. Staff verbalized understanding. All questions answered. documented in this [id number] Telephone encounter Note* Telephone Encounter - LEONARDA Villavicencio - 09/13/2024 12:11 PM EST OARRS reviewed, Rx sent into patient's pharmacy. [facility] HospitalEfansrunje99-72-2336 Miscellaneous Notes* Telephone Encounter - LEONARDA Villavicencio - 09/13/2024 12:11 PM EST OARRS reviewed, Rx sent into patient's pharmacy. * Telephone Encounter - Cindi Oscar - 09/12/2024 1:32 PM EST oxyCODONE-acetaminophen (Percocet) 5-325 MG tablet to sebastien dougherty documented in this encounterWashington County Memorial HospitalPepvjefbor55-58-8485 Telephone encounter Note* Telephone Encounter - Cindi Oscar - 09/12/2024 1:32 PM EST oxyCODONE-acetaminophen (Percocet) 5-325 MG tablet to sebastien dougherty [facility] HospitalNvcvazougp72-83-6345 History of Present illness Narrative* Ludivina Garcia RN - 08/20/2024 12:50 PM EST Lvm for staff at [facility] with Dr. Beaver's office to clarify if patient already completed his ABIs and US Duplex Bypass Graft LLE. Left direct number for call back. documented in this [id number] History of Present illness Narrative* Flash Lovelace [...] includes PVD. There is no history of CAD/NV orCVA. There is no history of a [...] 2009 Avascular necrosis of bone of hip ([facility]) 09/04/2011 Right hip Right hip CAD (coronary artery disease) ([facility]) 2013 Carotid artery disease ([facility]) Cataract 2014 Cellulitis 01/19/2022 [facility] Cellulitis LLE Colon polyps 2012 Critical lower limb ischemia ([facility]) 09/04/2018 Last Assessment & Plan: Pt s/p LLE angiogram with Dr Hahn who feels that the pt has no further endovascular options. He has consulted Dr. Sarabia for a possible tibial bypass. Pt s/p LLE critical limb ischemia Deann class 4 rest pain with distal discoloration to histoes Gangrene of left foot ([facility]) 10/04/2018 Groin hematoma 2014 RT Femoral groin Hematoma H/O myocardial perfusion scan 07/09/2019 LVEF 56% Myocardial perfusion imaging shows a defect in Apical wall Herpes zoster 09/04/2011 History of being hospitalized 12/06/2020 Strep Pneumonia, Resp. Failure - [facility] History of being hospitalized [place] - [facility] 07/15/2021-07/16/2021 History of coronary angiogram [...] incomplete bowel prep Diverticulosis Dr. Rowe at [facility] COLONOSCOPY W/ POLYPECTOMY 2011 CORONARY ARTERY [...] HISTORY 04/25/[address] LE [address] Dr. Hahn [place] MEDICATION MANAGEMENT 11/2020 Multi resistant Strep Pneumonia, [...] Relevant Orders Influenza, high-dose seasonal, quadrivalent, PF (GEA140) (Fluzone High Dose Quad North 0.7mL dose) (Completed) No follow-ups on file. documented in this [facility]12-10-2024 Telephone encounter Note* Telephone Encounter - Megan Douglass - 08/06/2024 2:54 PM EST oxyCODONE-acetaminophen (Percocet) 5-325 MG tablet zolpidem (Ambien) 10 MG tablet [employer] [place] [facility] [id number] Miscellaneous Notes* Telephone Encounter - Megan Douglass - 08/06/2024 2:54 PM EST oxyCODONE-acetaminophen (Percocet) 5-325 MG tablet zolpidem (Ambien) 10 MG tablet [employer] [place] documented in this [facility]11-25-2024 NoteUT Cardiology - [facility] Subjective Tristin Powell is a 84 [...] artery disease involving coronary bypass graft of alatna heart without angina pectoris Coronary artery disease involving alatna coronary artery of alatna heart without angina pectoris Coronary atherosclerosis Critical [...] instent restenosis. He then underwent CABG at [facility] in 2017 (CHAVEZ to diagonal, SVG to [...] a yellow jacket and he went to [place] for evaluation. He had mildly elevated high-sensitivity [...] joint pain, myalgias and (more content not included)...[facility]13-[facility] Note Patient: Tristin Powell Procedure Information Date/Time: 07/10/24929 Procedure: Coronary angiography - PC [facility] Providers: Eliezer Juarez MD Clinical information reviewed: Allergies Meds Physical Exam Airway Mallampati: III TM distance: >3 FB Neck ROM: full Cardiovascular Rhythm: regular Rate: normal Dental Pulmonary Abdominal Anesthesia Plan ASA 3 (Conscious sedation) Anesthetic plan and risks discussed with patient. Use of blood products discussed with patient who. Plan discussed with attending. [facility] Telephone encounter Note* Telephone Encounter - LEONARDA Villavicencio - 07/05/2024 9:35 AM EST OARRS reviewed, Rx sent into patient's pharmacy. [facility] HospitalCsedcqugea09-11-7994 Miscellaneous Notes* Telephone Encounter - LEONARDA Villavicencio - 07/05/2024 9:35 AM EST OARRS reviewed, Rx sent into patient's pharmacy. * Telephone Encounter - Cindi Oscar - 07/05/2024 9:18 AM EST oxyCODONE-acetaminophen (Percocet) 5-325 MG tablet to [employer] documented in this encounterWashington County Memorial HospitalHzzxwlioiy57-23-3536 Telephone encounter Note* Telephone Encounter - Cindi Oscar - 07/05/2024 9:18 AM EST oxyCODONE-acetaminophen (Percocet) 5-325 MG tablet to [employer] [facility] HospitalRxwbfkxtcg73-31-3342 Telephone encounter Note* Telephone Encounter - Megan Douglass - 06/17/2024 10:04 AM EDT Patient called requesting a zpack due to a cold. He asked something to be sent into [facility] in [place]. [facility] HospitalZyccnesfjb90-80-2780 Miscellaneous Notes* Telephone Encounter - Megan Douglass - 06/17/2024 10:04 AM EDT Patient called requesting a zpack due to a cold. He asked something to be sent into [facility] in [place]. documented in this encounterWashington County Memorial HospitalUvxrfpguhm57-37-2184 NoteUT Cardiology - [facility] Subjective Tristin Powell is a 84 y.o. year old male patient being seen for 6 mo follow up CAD, PAD, AAA, HTN, and HLD. Had lipid panel Sep, 2023. He is now seeing vascular surgery in [place], Dr. Beaver. Patient Active Problem List Diagnosis Abdominal pain Chest pain Aortic valve regurgitation Mitral valve regurgitation Avascular necrosis of bone of hip (CMS/HCC) Community acquired pneumonia of left lower lobe of lung Contusion Hematoma of arm, left, initial encounter Coronary artery disease involving coronary bypass graft of alatna heart without angina pectoris Coronary artery disease involving alatna coronary artery of alatna heart without angina pectoris Coronary atherosclerosis Critical [...] instent restenosis. He then underwent CABG at [facility] in 2017 (CHAVEZ to diagonal, SVG to [...] lexiscan stress test done ordered by Dr. Juarez as he reports having a bad reaction to his last stress test. We offered a dobutamine stress [facility]. He has not had this done yet as he notes his vascular surgery is on hold at the moment and they are monitoring things. 05/28/2024 Since last seen, pt presented to [facility] with c/o chest pain. He was stung by a yellow jacket. 4 hours later he developed sharp stabbing chest pains that lasted seconds. This happened again 2 hours later. He went to [place] for further evaluation. He has had no further episodes of chest pain. Review of Systems Cardiovascular (more content not included)...[facility] 05-28-2024 NotePt is here for a follow up after being in [facility]. Pt has HLD, HNT, and CAD. Pt denies chest pain, sob, dizziness. Review of Systems Cardiovascular: Positive for claudication and leg swelling. Respiratory: Positive for wheezing. Hematologic/Lymphatic: Bruises/bleeds easily. Musculoskeletal: Positive for arthritis, back pain, joint pain, myalgias and neck pain. All other systems reviewed and are negative.[facility] 05-21-2024 History of Present illness Narrative* LEONARDA Villavicencio - 05/21/2024 1:00 PM EDT HPI Med Refill Additional comments: Oxycodone Last edited by Wendy Tubbs LPN on 05/21/2024 1:07 PM. Subjective Patient ID: Tristin Powell is a 84 y.o. male who presents for hospital follow up. Flowsheet Row Patient Outreach from 05/16/2024 in [employer] with Mary Rodriguez LPN Hospital Information Discharged To: Home Setting Discharge Hospital [facility] Diagnosis Chest pain, HTN, CAD, paroximal A-Fib [...] went to a lung specialist down in [place] and after the repeat test was told [...] morning. [DISCONTINUED] ergocalciferol (Vitamin D-2) 1.25 MG (15927 UT) capsule Take 50,000 Units by mouth [...] 2009 Avascular necrosis of bone of hip ([facility]) 09/04/2011 Right hip Right hip CAD (coronary artery disease) ([facility]) 2013 Carotid artery disease ([facility]) Cataract 2014 Cellulitis 01/19/2022 [facility] Cellulitis LLE Colon polyps 2012 Critical lower limb ischemia ([facility]) 09/04/2018 Last Assessment & Plan: Pt s/p LLE angiogram with Dr Hahn who feels that the pt has no further endovascular options. He has consulted Dr. Sarabia for a possible tibial bypass. Pt s/p LLE critical limb ischemia Midland class 4 rest pain with distal discoloration to histoes Gangrene of left foot ([facility]) 10/04/2018 Groin hematoma 2013 RT Femoral groin Hematoma H/O myocardial perfusion scan 07/09/2019 LVEF 56% Myocardial perfusion imaging shows a defect in Apical wall Herpes zoster 09/04/2011 History of being hospitalized 12/06/2020 Strep Pneumonia, Resp. Failure - [facility] History of being hospitalized [place] [facility] 07/15/2021-07/16/2021 History of coronary angiogram [...] incomplete bowel prep Diverticulosis Dr. Rowe at [facility] COLONOSCOPY W/ POLYPECTOMY 2011 CORONARY ARTERY [...] HISTORY 04/25/20[address] Diagnostic LE catheter[address] Dr. Hahn [place] MEDICATION MANAGEMENT 11/2020 Multi resistant Strep Pneumonia, [...] foot (CMS/HCC) The patient is seeing a emergency medicine medical director for this condition, treatment is deferred to [...] for Appointment As Scheduled. documented in this encounterWashington County Memorial HospitalZeiuqyzrgq57-12-6326 History of Present illness Narrative* LEONARDA Villavicencio [...] % ointment ergocalciferol (Vitamin D-2) 1.25 MG (13886 UT) capsule Take 50,000 Units by mouth [...] artery disease (CMS/HCC) Cataract 2014 Cellulitis 01/19/2022 [facility] Cellulitis LLE Colon polyps 2011 Groin hematoma 2013 RT Femoral groin Hematoma H/O myocardial perfusion scan 07/09/2019 LVEF 56% Myocardial perfusion imaging shows a defect in Apical wall History of being hospitalized 12/06/2020 Strep Pneumonia, Resp. Failure - [facility] History of being hospitalized [place] [facility] 07/15/2021-07/16/2021 History of coronary angiogram [...] incomplete bowel prep Diverticulosis Dr. Rowe at [facility] COLONOSCOPY W/ POLYPECTOMY 2011 CORONARY ARTERY [...] HISTORY 04/25/2022 Diagnostic LE catheterization Dr. Hahn [place] MEDICATION MANAGEMENT 11/2020 Multi resistant Strep Pneumonia, [...] Do you have a medical power of vulcanizer rubber plate?: Yes Objective : BP 132/82 Pulse 70 [...] at this time. 7. Phantom limb pain ([facility]/HCC) This is a chronic medical condition that is stable since last assessment. No changes in treatment are suggested at this time. 8. Polymyalgia rheumatica (CMS/HCC) This is a chronic medical condition that is stable since last assessment. No changes in treatment are suggested at this time. 9. 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 No changes in treatment are suggested at this time. 10. Chronic bronchitis, unspecified chronic bronchitis type ([facility]) This is a chronic medical condition that is stable since last assessment. No changes in treatment are suggested at this time. 11. Dyspnea on exertion The patient is seeing a emergency medicine medical director for this condition, treatment is deferred to that specialist. Correspondence from that specialist and any available testing were reviewed during today's visit. 12. Orthopnea The patient is seeing a emergency medicine medical director for this condition, treatment is deferred to [...] aortic aneurysm (AAA) without rupture, unspecified part ([facility]) The patient is seeing a emergency medicine medical director for this condition, treatment is deferred to that specialist. Correspondence from that specialist and any available testing were reviewed during today's visit. 16. Aortic valve insufficiency, etiology of cardiac valve disease unspecified The patient is seeing a emergency medicine medical director for this condition, treatment is deferred to that specialist. Correspondence from that specialist and any available testing were reviewed during today's visit. 17. Atherosclerosis of alatna coronary artery of alatna heart without angina pectoris ([facility]) The patient is seeing a emergency medicine medical director for this condition, treatment is deferred to that specialist. Correspondence from that specialist and any available testing were reviewed during today's visit. 18. Benign essential hypertension ([facility]) Patient's blood pressure is currently well controlled. Continue with current medications and I willcontinue to monitor. 19. Stenosis of right carotid artery The patient is seeing a emergency medicine medical director for this condition, treatment is deferred to that specialist. Correspondence from that specialist and any available testing were reviewed during today's visit. 20. Chronic heart failure with preserved ejection fraction (CMS/HCC) The patient is seeing a emergency medicine medical director for this condition, treatment is deferred to that specialist. Correspondence from that specialist and any available testing were reviewed during today's visit. 21. Chronic ischemic heart disease (CMS/HCC) The patient is seeing a emergency medicine medical director for this condition, treatment is deferred to that specialist. Correspondence from that specialist and any available testing were reviewed during today's visit. 22. Mitral valve insufficiency, unspecified etiology The patient is seeing a emergency medicine medical director for this condition, treatment is deferred to that specialist. Correspondence from that specialist and any available testing were reviewed during today's visit. 23. Paroxysmal atrial fibrillation (CMS/HCC) The patient is seeing a emergency medicine medical director for this condition, treatment is deferred to that specialist. Correspondence from that specialist and any available testing were reviewed during today's visit. 24. Preinfarction syndrome (CMS/HCC) The patient is seeing a emergency medicine medical director for this condition, treatment is deferred to that specialist. Correspondence from that specialist and any available testing were reviewed during today's visit. 25. PVD (peripheral vascular disease) with claudication (CMS/HCC) The patient is seeing a emergency medicine medical director for this condition, treatment is deferred to that specialist. Correspondence from that specialist and any available testing were reviewed during today's visit. 26. Thoracic aortic aneurysm without rupture, unspecified part (CMS/HCC) The patient is seeing a emergency medicine medical director for this condition, treatment is deferred to [...] prostate (CMS/HCC) The patient is seeing a emergency medicine medical director for this condition, treatment is deferred to that specialist. Correspondence from that specialist and any available testing were reviewed during today's visit. 32. Stage 3a chronic kidney disease (HCC) ([facility]) This is a chronic medical condition that [...] time. 35. Claudication of right lower extremity ([facility]) The patient is seeing a emergency medicine medical director for this condition, treatment is deferred to [...] suggested at this time. 41. Other thrombophilia ([facility]) This is a chronic medical condition that is stable since last assessment. No changes in treatment are suggested at this time. 42. Abnormal radiographic examination The patient is seeing a emergency medicine medical director for this condition, treatment is deferred to that specialist. Correspondence from that specialist and any available testing were reviewed during today's visit. 43. Disorder of lipid metabolism ([facility]) The patient is seeing a emergency medicine medical director for this condition, treatment is deferred to that specialist. Correspondence from that specialist and any available testing were reviewed during today's visit. 44. Left sciatic nerve pain This is a chronic medical condition that is stable since last assessment. No changes in treatment are suggested at this time. 45. Mixed hyperlipidemia (CMS/HCC) The patient is seeing a emergency medicine medical director for this condition, treatment is deferred to [...] 100 g; Refill: 3 48. Atherosclerosis of [place] arteries of extremities with rest pain, unspecified extremity (CMS/HCC) The patient is seeing a emergency medicine medical director for this condition, treatment is deferred to that specialist. Correspondence from that specialist and any available testing were reviewed during today's visit. 49. Pulmonary hypertension, unspecified (CMS/HCC) The patient is seeing a emergency medicine medical director for this condition, treatment is deferred to that specialist. Correspondence from that specialist and any available testing were reviewed during today's visit. Follow up in about 3 months (around 07/27/2024) for Medication Follow Up. Electronically signed by LEONARDA Villavicencio on April 26, 2024 documented in this encounterWashington County Memorial [id number] NotePt is here for a six month follow up. Pt has hyperlipidemia, hypertension, PAD. Pt denies sob, chest pain, palpitations Review of Systems Cardiovascular: Positive for claudication. Respiratory: Positive for wheezing. Hematologic/Lymphatic: Bruises/bleeds easily. Musculoskeletal: Positive for arthritis, back pain, joint pain, myalgias and neck pain. All other systems reviewed and are negative.[facility]-24-[facility]24 NoteUT Cardiology - [facility] Reginaldo Powell is a 84 y.o. year old male patient being seen for 6 mo follow up CAD, PAD, AAA, HTN, and HLD. Had lipid panel Sep, 2023. [place] Patient Active Problem List Diagnosis Abdominal pain Chest pain Aortic valve regurgitation Mitral valve regurgitation Avascular necrosis of bone of hip (CMS/HCC) Community acquired pneumonia of left lower lobe of lung Contusion Hematoma of arm, left, initial encounter Coronary artery disease involving coronary bypass graft of [place] heart without angina pectoris Coronary artery disease involving [place] coronary artery of [place] heart without angina pectoris Coronary atherosclerosis Critical [...] (CMS/HCC) Phantom limb pain (CMS/HCC) Polymyalgia rheumatica ([facility]/HCC) Primary osteoarthritis of right hip Routine general [...] instent restenosis. He then underwent CABG at [facility] in 2017 (CHAVEZ to diagonal, SVG to [...] lexiscan stress test done ordered by Dr. Juarez as he reports having a bad reaction to his last stress test. We offered [facility] He has not had this done yet [...] (BP Location: Right arm (more content not included)...[facility] Hospital Discharge instructions Patient Education 12/26/2023 [...] similar to normal prostate cells (moderately differentiated). [place] 8, 9, or 10: This indicates that [...] stress of having cancer. General instructions Take uvie-pyp-clcypbi and prescription medicines only as told by your health care provider. If you have to go to the hospital, notify your cancer specialist (oncologist). Keep all follow-up visits. This is important. Where to find more information [place] [employer]: www.cancer.org [place] [employer] Clinical Oncology: www.cancer.net National Cancer Clio: www.cancer.gov Contact a health care provider if: [...] provider. Document Revised: 11/10/2021 Document Reviewed: 11/10/2021 [employer] Patient Education 2022 [employer]. Follow Up Care 12/20/2022 14:56:06 With:BRENNA MOSQUERA PA-C, URL Address: [facility] [address] [place] [address] Business (1) When: only if needed [facility] 02-06-2024 Evaluation note* Encounter Date Diagnosis Assessment [...] understands and is agreement with that plan [employer] Other 12-14-2023 History of Present illness Narrative* Dahiana Meliton - 08/10/2023 11:40 AM EST Ortho Nurse - Established Patient Intake Room#: 4 Date: 08/10/2023 10:53 AM Patient: Tristin Powell Sr. MR#: [id number] : 1940 Age: 83 y.o. 2yr R [...] has No Known Allergies. * Scar Ortega APRN-PLUMBER SUPERVISOR - 08/10/2023 11:40 AM EST HPI: Patient [...] 10:53 AM Patient: Tristin Powell Sr. MR#: [id number] : 1940 Age: 83 y.o. 2yr R [...] Laterality: N/A; Surgeon: Isaias Vogt MD; Location: [facility] CARDIAC CATH/EP LAB PERIPHERAL STENT PLACEMENT N/A 08/09/2018 Laterality: N/A; Surgeon: Isaias Vogt MD; Location: [facility] CARDIAC CATH/EP LAB ATHERECTOMY PERIPHERAL N/A 08/09/2018 Laterality: N/A; Surgeon: Isaias Vogt MD; Location: [facility] CARDIAC CATH/EP LAB CORONARY STENT PLACEMENT [...] has No Known Allergies. documented in this [facility]12-13-2023 History of Present illness Narrative* Mohsen [...] year with repeat testing. documented in this [id number] History of Present illness Narrative* Katie Anna [...] Duplex and had previous study done at [facility] in Apr [address] Maxim Beaver. This Nurse will obtain records and submit to Dr. Sarabia for review. documented in this [id number] Evaluation note* Encounter Date Diagnosis Assessment Notes [...] with speech that he should seek attention. [employer] Other 09-26-2023 Evaluation note* Encounter Date Diagnosis [...] to go over the results with him. [employer] Other 09-26-2023 Evaluation note* Encounter Date Diagnosis Assessment Notes Treatment Notes Treatment Clinical Notes Apr, Peripheral vascular disease, unspecified (ICD-10 - I73.9) Apr, Other specified postprocedural states (ICD-10 - Z98.890) Apr, Left carotid bruit (ICD-10 - R09.89) [facility] Other 04-25-2023 Hospital Discharge instructions Patient Education [...] Follow these instructions at home: Medicines Take kjsv-dek-aiofuyb and prescription medicines only as told by [...] provider. Document Revised: 11/10/2021 Document Reviewed: 11/10/2021 [employer] Patient Education 2022 [employer]. Follow Up Care 11/21/2022 15:38:53 With:JAY CARRANZA, BRENNA Bazan, URL Address: When:1 year [facility] 03-20-2023 Evaluation note* Encounter Date Diagnosis Assessment [...] meantime with any worsening symptoms or concerns. [employer] Other 03-14-2023 History of Present illness Narrative* [...] to Sit: Supervision, Head of bed elevated Financial Reserve Clerk: bed positioning mechanics, bedrails Skilled Intervention Provided: verbal cues, patient education, monitoring patient response with activity For: logroll technique, proper body mechanics, self-monitoring during activity Resulting in: improved functional independence Transfers Sit to Stand: Stand by assist Stand Pivot Transfers: Stand by assist Financial Reserve Clerk: BUE Skilled Intervention Provided: verbal cues, neuromuscular [...] recently Prior Level of Function Level of Wells - Transfers/Ambulation/Mobility: Independent with household ambulation, Independent with community ambulation Level of Wells - ADLs: Independent Level of Wells - Homemaking: Independent Driving: Patient drives For [...] Dawn MD - 11/08/2022 6:57 AM EDT [facility] 11/08/2022 Tristin Powell 1940 [id number] Assessment/Plan: Tristin Powell is an 82 year old male with a history of Prostate Cancer, CAD, PAD (left foot amputation 2018), Hypertension, HFpEF who presented to [facility] 11/03/2022 with persistent pneumonia despite #2 rounds [...] to rubbing effect. Recommended to go to [facility] for adjustment to prevent valgus deformity [...] Home Expected Disposition: same. Estimated discharge date: 3/14-15 pending Pulmonary. Subjective: Patient is new to me today. Today I personally did a review of prior medical records and have summarized my findings in my assessment and plan as noted above. Today I also reviewed recent labs, diagnostics, vitals including pulse ox, and learning consultant/other provider recommendations. VSS. Troponin with negative [...] Oral Daily ipratropium-albuteroL 3 mL Inhalation Q6H [facility] metoprolol tartrate 50 mg Oral BID pantoprazole 40 mg Oral BID polyethylene glycol 17 g Oral Daily rivaroxaban 2.5 mg Oral BID sodium chloride 1 spray Each Nare BID sodium chloride (PF) 5 mL Intravenous Q8H [facility] Labs, Imaging and Studies reviewed: Results from [...] Standing Balance - Static: Stand by assist Financial Reserve Clerk - Standing Static: (none) Standing Balance - Dynamic: Stand by assist, Contact guard assist Financial Reserve Clerk - Standing Dynamic: (none) Skilled Intervention Provided: verbal cues, patient education For: self-monitoring during activity, safe use of AD and/or equipment Resulting in: improved functional independence Bed Mobility Supine to Sit: (N/A Pt sitting edge of bed upon arrival) Sit to Supine: (N/A Pt sitting edge of bed at end of session) Transfers Sit to Stand: Stand by assist Financial Reserve Clerk: (none) Skilled Intervention Provided: verbal cues For: [...] recently Prior Level of Function Level of Wells - Transfers/Ambulation/Mobility: Independent with household ambulation, Independent with community ambulation Level of Wells - ADLs: Independent Level of Wells - Homemaking: Independent Driving: Patient drives For [...] Barboza MD - 11/07/2022 7:39 AM EDT [facility] In[facility] Progress Note 11/07/2022 Tristin Bazan Sherry 1940 [id number] Assessment/Plan: Tristin Powell is an 82 year old male with a history of Prostate Cancer, CAD, PAD (left foot amputation 2018), Hypertension, HFpEF who presented to [facility] 11/03/2022 with persistent pneumonia despite #2 rounds [...] to rubbing effect. Recommended to go to [facility] for adjustment to prevent valgus deformity [...] 6' 1 Wt 113.4 kg (250 lb) XkF413% BMI 32.98 kg/m General: NAD Eyes: EOMI [...] Barboza MD - 11/06/2022 10:11 AM EDT [facility] Inpatient Progress Note 11/06/2022 Tristin Powell 1940 [id number] Assessment/Plan: Tristin Powell is an 82 year old male with a history of Prostate Cancer, CAD, PAD (left foot amputation 2018), Hypertension, HFpEF who presented to [facility] 11/03/2022 with persistent pneumonia despite #2 rounds [...] Standing Balance - Static: Contact guard assist Financial Reserve Clerk - Standing Static: other (comment) (none) Standing Balance - Dynamic: Contact guard assist Financial Reserve Clerk - Standing Dynamic: (none) Loss of Balance- [...] assist Stand Pivot Transfers: Contact guard assist Financial Reserve Clerk: other (comment) (none) Skilled Intervention Provided: verbal [...] recently Prior Level of Function Level of Wells - Transfers/Ambulation/Mobility: Independent with household ambulation, Independent with community ambulation Level of Wells - ADLs: Independent Level of Wells - Homemaking: Independent Driving: Patient drives For [...] Barboza MD - 11/05/2022 9:53 AM EST [facility] Inpatient Progress Note 11/05/2022 Tristin Powell 1940 [id number] Assessment/Plan: Tristin Powell is an 82 year old male with a history of Prostate Cancer, CAD, PAD (left foot amputation 2018), Hypertension, HFpEF who presented to [facility] 11/03/2022 with persistent pneumonia despite #2 rounds [...] left foot area. Nasal irritation. ConsultedPodiatry. Prescribed Kendall Saline nasal spray. Reviewed chart. Physical Exam: [...] Results from last 7 days Lab Units 03/11/23 0558 11/04/22 0626 11/03/22 1353 WBC K/mcL [...] None Wound Bed Characteristics Scab Edna-wound Assessment Painful;[place] Treatments Skin barrier cream/paste Cleansed Soap and [...] recently Prior Level of Function Level of Wells - Transfers/Ambulation/Mobility: Independent with household ambulation, Independent with community ambulation Level of Wells - ADLs: Independent Level of Wells - Homemaking: Independent Driving: Patient drives Past Medical History: Diagnosis Date Arthritis Avascular necrosis of bone of hip ([facility]) Claudication (HCC) Coronary artery disease Herpes zoster Hyperlipidemia Hypertension PAD (peripheral artery disease) ([facility]) 01/21/2022 Prostate cancer (HCC) Vascular disease Past Surgical History: Procedure Laterality Date 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/08/2018 Procedure: LEFT MIDFOOT AMPUTATION; Surgeon: Flynn Mann DPM; Location: [facility]; Service: Podiatry ANKLE SURGERY Left BYPASS PERONEAL FEMORAL Right 09/07/2018 Procedure: BYPASS PERONEAL FEMORAL, RIGHT SAPHENOUS VEIN HARVEST, COMPLETION ANGIOGRAM; Surgeon: Mohsen Sarabia MD; Location: [facility] NEURO OR; Service: Cardiovascular CARDIAC CATHETERIZATION Left 09/05/2018 Procedure: Angio Lower Extremity; Surgeon: Ben Hahn MD; Location: [facility] VENEREAL DISEASE CONTROL HEAD; Service: Cardiovascular CARDIAC SURGERY 2017 triple bypass EGD N/A 10/10/2018 Procedure: ESOPHAGOGASTRODUODENOSCOPY; Surgeon: Ben Jensen MD; Location: [facility]; Service: Gastroenterology EYE SURGERY Right 2015 [...] Barboza MD - 11/04/2022 10:58 AM EST [employer] Inpatient Progress Note 11/04/2022 Tristin Powell 1940 [id number] Assessment/Plan: Tristin Powell is an 82 year old male with a history of Prostate Cancer, CAD, PAD (left foot amputation 2018), Hypertension, HFpEF who presented to [facility] 11/03/2022 with persistent pneumonia despite #2 rounds [...] Tristin sitting up in bed.complains of cough. Gavin Jacobs helps, so scheduled. Complains of pain [...] PHOSPHORUS mg/dL 3.9* -- * El Owen [facility],PharmD - 11/03/2022 10:20 PM EST PHARMACOTHERAPY NOTE: [...] 1 Encounters: 11/03/22 113.4 kg (250 lb) [place] body weight: 79.9 kg (176 lb 2.4 [...] Component Value Units Date/Time Sputum Aerobic Culture [[id number]] Order Status: Sent Specimen: Sputum, Expectorated S. pneumoniae Urine Antigen [[id number]] Order Status: Sent Specimen: Urine, Random Legionella Antigen, Urine [[id number]] Order Status: Sent Specimen: Urine, Random MRSA DNA Amplified Probe [[id number]] Order Status: Sent Specimen: Swab from Nasal Blood Culture Aerobic/Anaerobic [[id number]] (Normal) Collected: 11/03/221352 Order Status: Completed Specimen: Blood, Peripheral Updated: 11/03/221558 Culture In Progress; No Growth to Date Blood Culture Aerobic/Anaerobic [[id number]] (Normal) Collected: 11/03/22 135 Order Status: Completed Specimen: Blood, Peripheral Updated: 11/03/22 1559 Culture In Progress; No Growth to Date Pharmacist: El Owen RPh,PharmD Contact Number: documented in this [id number] Hospital Discharge instructions * Discharge Instructions* Vickey [...] Care Everywhere. * Heart Failure: Avoiding Triggers ([place]) * Heart Failure: Limiting Sodium ([facility]) * Heart Failure: Restricting Fluids: General Info ([place]) * Low Sodium Diet ([facility]) documented in this [id number] Hospital course Narrative* Vickey Dawn MD - 11/08/2022 11:18 AM EDT Images from the original note were not included. MEDONE DISCHARGE SUMMARY Tristin Powell Account: [id number] Admitted: 11/03/2022 Discharge Date/Time: 11/08/22 11:30 AM [...] Hypertension, HFpEF who presented to [facility] 11/03/2022 with persistent pneumonia despite #2 rounds [...] to rubbing effect. Recommended to go to [facility] for adjustment to prevent valgus deformity [...] Trelegy Ellipta 100-62.5-25 mcg Dsdv Generic drug: odcqkkxmdzn-ygyatzome-bmsuvizi zolpidem 10 mg tablet Commonly known as: [...] Your Medications These medications were sent to [facility] [id number] [facility] [address] [address] furosemide 20 MG tablet levoFLOXacin 750 MG tablet Physician(s) Family: Flash Lovelace MD, , Address: [address] [place] [address] / [place] [id number] Follow Up: Dashawn Orosco DPM [address] [place] [address] Dr [address] [place] [id number] Schedule an appointment as soon as possible for a visit in 1 week(s) [facility] [address] [place] [address] Follow up Thank you for allowing us to participate in your care. Schedule an appt with your established stump shooter in [place]. Call us with any questions. Wagner Moon MD [address] [place] [address] [address] [facility] [address] Call in 4 week(s) Call in 4-6 weeks after follow up CT chest Additional Information: Patient seen and examined day of discharge. For more information regarding patient's care, including complete radiology reports, please contact [place] [facility] at Patient instructions, including activity, were given to the patient/family at discharge. Please seethe After Visit Summary in the medical record for details. Time spent on discharge: > 30 minutes Completed by: Vickey Dawn on 11/08/22, 11:30 AM documented in this [id number] Consult note* Monica Vázquez RN - 11/07/2022 [...] of early recognition and report to their stump shooter,PCP or health care provider. Daily weight monitoring [...] fluid and lifestyle changes. MATERIALS, RESOURCES GIVEN: [facility] Guide to Living with Heart Failure book, 5 day low sodium+ Diabetic sample menu. Clinical references attached to AVS. [id number] Consult note* Monica Vázquez RN - 11/07/2022 [...] of early recognition and report to their stump shooter,PCP or health care provider. Daily weight monitoring [...] fluid and lifestyle changes. MATERIALS, RESOURCES GIVEN: [facility] Guide to Living with Heart Failure book, 5 day low sodium+ Diabetic sample menu. Clinical references attached to AVS. * Kory Mei CNP - 11/07/2022 10:11 AM EDTAssociated Order(s): IP CONSULT TO CARDIOLOGY General Cardiology Inpatient Consult Heart & Vascular [facility] 11/07/2022 Kory Mei CNP [facility] RN [phone] Patient: Tristin Powell Date of : 1940 (82 y.o.) Referring Provider: Refer to consult order in electronic medical record PCP: Flash Lovelace MD User Experience Designer: Follows with cardiology at [facility] Assessment/Plan: Atypical chest pain Elevated troponins Admit [...] consulted. -Follow up with PCP or personal stump shooter in 1-2 weeks Coronary artery disease History of multiple stents and subsequent coronary artery bypass graft x 3 (CHAVEZ to Diag, SVG to OM1, SVG to PDA) at [facility] 10/2016 Left heart catheterization prior [...] for pneumonia and seen at [facility] ED on 10/30 for fever, persistent frequent cough with associated chest pain, n/v, decrease appetite, weakness, and mild dyspnea. Per patient was told by PCP that there was also Fluid on his lungs . Normal BNP at [facility] ED. Discharged on ATB. Since admit [...] bypass graft. Not following routinely with his stump shooter. Imaging: I independently reviewed the EKG and agree with the interpretation(s) with the following comments. SR, isolated flat T wave lead III; ECG today with chest pain: Sr with occasional PVC, TWA lead III,aVF EKG 12-lead Final Result by Interface, Lab Results In [place] [facility] (11/03/2022 1658) Echocardiogram complete w contrast [...] zoster Hyperlipidemia Hypertension PAD (peripheral artery disease) ([facility]) 01/21/2022 Prostate cancer (HCC) Vascular disease Past Surgical History: Procedure Laterality Date 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/08/2018 Procedure: LEFT MIDFOOT AMPUTATION; Surgeon: Flynn Mann DPM; Location: [facility] OR; Service: Podiatry ANKLE SURGERY Left BYPASS PERONEAL FEMORAL Right 09/07/2018 Procedure: BYPASS PERONEAL FEMORAL, RIGHT SAPHENOUS VEIN HARVEST, COMPLETION ANGIOGRAM; Surgeon: Mohsen Sarabia MD; Location: [facility]URO OR; Service: Cardiovascular CARDIAC CATHETERIZATION Left 09/05/2018 Procedure: Angio Lower Extremity; Surgeon: Ben Hahn MD; Location: [facility] VENEREAL DISEASE CONTROL HEAD; Service: Cardiovascular CARDIAC SURGERY 2017 triple bypass EGD N/A 10/10/2018 Procedure: ESOPHAGOGASTRODUODENOSCOPY; Surgeon: Ben Jensen MD; Location: [facility]; Service: Gastroenterology EYE SURGERY Right 2015 [...] cardiac issues or concerns. Jaziel Jeffries MD, [facility] Physicians Inpatient Rounding [phone] Office [phone] * Aaron Fenton DPM - 11/07/2022 7:07 AM EDTAssociated Order(s): IP CONSULT TO PODIATRY Critical Limb Care Consult Note Tristin Powell AGE: 82 y.o. GENDER: male : 1940 EPISODE DATE: 11/03/2022 Assessment/Plan: Tristin Powell is an 82 year old male with a history of Prostate Cancer, CAD, PAD (left foot amputation 2018), Hypertension, HFpEF who presented to [facility] 11/03/2022 with persistent pneumonia despite #2 rounds [...] ankle. He will need to go to [facility] for an adjustment to help prevent [...] Arthritis Avascular necrosis of bone of hip ([facility]) Claudication ([facility]) Coronary artery disease Herpes zoster Hyperlipidemia Hypertension PAD (peripheral artery disease) ([facility]) 01/21/2022 Prostate cancer ([facility]) Vascular disease PAST SURGICAL HISTORY Past Surgical History: Procedure Laterality Date 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/08/2018 Procedure: LEFT MIDFOOT AMPUTATION; Surgeon: Flynn Mann DPM; Location: [facility] OR; Service: Podiatry ANKLE SURGERY Left BYPASS PERONEAL FEMORAL Right 09/07/2018 Procedure: BYPASS PERONEAL FEMORAL, RIGHT SAPHENOUS VEIN HARVEST, COMPLETION ANGIOGRAM; Surgeon: Mohsen Sarabia MD; Location: [facility] OR; Service: Cardiovascular CARDIAC CATHETERIZATION Left 09/05/2018 Procedure: Angio Lower Extremity; Surgeon: Ben Hahn MD; Location: [facility] VENEREAL DISEASE CONTROL HEAD; Service: Cardiovascular CARDIAC SURGERY 2017 triple bypass EGD N/A 10/10/2018 Procedure: ESOPHAGOGASTRODUODENOSCOPY; Surgeon: Ben Jensen MD; Location: [facility]; Service: Gastroenterology EYE SURGERY Right 2015 [...] Nare route daily . 16 g 12 aehglqkokrm-gkunspzsj-hzlncpon (Trelegy Ellipta) 100-62.5-25 mcg DsDv 1 puff [...] 6' 1 Wt 113.4 kg (250 lb) HpC700% BMI 32.98 kg/m PHYSICAL EXAM General: The [...] intolerance. 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 [...] recently Prior Level of Function Level of Wells - Transfers/Ambulation/Mobility: Independent with household ambulation, Independent with community ambulation Level of Wells - ADLs: Independent Level of Wells - Homemaking: Independent Driving: Patient drives Past Medical History: Diagnosis Date Arthritis Avascular necrosis of bone of hip ([facility]) Claudication ([facility]) Coronary artery disease Herpes zoster Hyperlipidemia Hypertension PAD (peripheral artery disease) ([facility]) 01/21/2022 Prostate cancer ([facility]) Vascular disease Past Surgical History: Procedure Laterality Date 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/08/2018 Procedure: LEFT MIDFOOT AMPUTATION; Surgeon: Flynn Mann DPM; Location: [facility] OR; Service: Podiatry ANKLE SURGERY Left BYPASS PERONEAL FEMORAL Right 09/07/2018 Procedure: BYPASS PERONEAL FEMORAL, RIGHT SAPHENOUS VEIN HARVEST, COMPLETION ANGIOGRAM; Surgeon: Mohsen Sarabia MD; Location: [facility]; Service: Cardiovascular CARDIAC CATHETERIZATION Left 09/05/2018 Procedure: Angio Lower Extremity; Surgeon: Ben Hahn MD; Location: [facility] VENEREAL DISEASE CONTROL HEAD; Service: Cardiovascular CARDIAC SURGERY 2017 triple bypass EGD N/A 10/10/2018 Procedure: ESOPHAGOGASTRODUODENOSCOPY; Surgeon: Ben Jensen MD; Location: [facility]; Service: Gastroenterology EYE SURGERY Right 2015 [...] 3.10.23. See note for details. * Gustavo Macdonald, [facility] - 11/04/2022 6:50 AM ESTAssociated Order(s): IP CONSULT TO ORTHOPEDIC SURGERY CONSULT NOTE Patient Name: Tristin Powell Admit Date: 3080930 MR #: [id number] : 1940 Physicians: Flash Lovelace MD (Family); [...] HTN, prostate cancer presenting to [facility] 11/03 with CAP. Patient also reports left [...] MIDFOOT AMPUTATION; Surgeon: Flynn Mann DPM; Location: [facility] OR; Service: Podiatry ANKLE SURGERY Left BYPASS PERONEAL FEMORAL Right 09/07/2018 Procedure: BYPASS PERONEAL FEMORAL, RIGHT SAPHENOUS VEIN HARVEST, COMPLETION ANGIOGRAM; Surgeon: Mohsen Sarabia MD; Location: [facility]; Service: Cardiovascular CARDIAC CATHETERIZATION Left 09/05/2018 Procedure: Angio Lower Extremity; Surgeon: Ben Hahn MD; Location: [facility] VENEREAL DISEASE CONTROL HEAD; Service: Cardiovascular CARDIAC SURGERY 2017 triple bypass EGD N/A 10/10/2018 Procedure: ESOPHAGOGASTRODUODENOSCOPY; Surgeon: Ben Jensen MD; Location: [facility]; Service: Gastroenterology EYE SURGERY Right 2015 [...] sprays by Each Nare route daily . azrlfosyacc-lxutxnwkr-rvtevgju (Trelegy Ellipta) 100-62.5-25 mcg DsDv 1 puff [...] his primary care physician. documented in this [id number] Consult note* Kory Mei CNP - 11/07/2022 10:11 AM EDTAssociated Order(s): IP CONSULT TO CARDIOLOGY General Cardiology Inpatient Consult Heart & Vascular [facility] 11/07/2022 Kory Mei CNP [facility] Rounding RN [phone] Patient: Tristin Powell Date of : 1940 (82 y.o.) Referring Provider: Refer to consult order in electronic medical record PCP: Flash Lovelace MD User Experience Designer: Follows with cardiology at [facility] Assessment/Plan: Atypical chest pain Elevated troponins Admit [...] consulted. -Follow up with PCP or personal stump shooter in 1-2 weeks Coronary artery disease History of multiple stents and subsequent coronary artery bypass graft x 3 (CHAVEZ to Diag, SVG to OM1, SVG to PDA) at [facility] in [place] 10/2016 Left heart catheterization prior to coronary [...] for pneumonia and seen at [facility] ED on 3/5 for fever, persistent frequent cough with associated chest pain, n/v, decrease appetite, weakness, and mild dyspnea. Per patient was told by PCP that there was also Fluid on his lungs . Normal BNP at [facility] ED. Discharged on ATB. Since admit [...] bypass graft. Not following routinely with his stump shooter. Imaging: I independently reviewed the EKG and agree with the interpretation(s) with the following comments. SR, isolated flat T wave lead III; ECG today with chest pain: Sr with occasional PVC, TWA lead III,aVF EKG 12-lead Final Result by Interface, [facility]03/[facility]22 1658) Echocardiogram complete w contrast Final [...] zoster Hyperlipidemia Hypertension PAD (peripheral artery disease) ([facility]) 01/21/2022 Prostate cancer (HCC) Vascular disease Past Surgical History: Procedure Laterality Date 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/08/2018 Procedure: LEFT MIDFOOT AMPUTATION; Surgeon: Flynn Mann DPM; Location: [facility] OR; Service: Podiatry ANKLE SURGERY Left BYPASS PERONEAL FEMORAL Right 09/07/2018 Procedure: BYPASS PERONEAL FEMORAL, RIGHT SAPHENOUS VEIN HARVEST, COMPLETION ANGIOGRAM; Surgeon: Mohsen Sarabia MD; Location: [facility]; Service: Cardiovascular CARDIAC CATHETERIZATION Left 09/05/2018 Procedure: Angio Lower Extremity; Surgeon: Ben Hahn MD; Location: [facility] VENEREAL DISEASE CONTROL HEAD; Service: Cardiovascular CARDIAC SURGERY 2017 triple bypass EGD N/A 10/10/2018 Procedure: ESOPHAGOGASTRODUODENOSCOPY; Surgeon: Ben Jensen MD; Location: [facility]; Service: Gastroenterology EYE SURGERY Right 2015 [...] mL 3 mL Inhalation Q6H [facility] Duke Claros MD 3 mL at 11/07/22 [...] cardiac issues or concerns. Jaziel Jeffries MD, [facility] Phys[facility] Inpatient Rounding [phone] Office [phone] [facility] Work Phone: 1(406) [phone] Consult note* Aaron Fenton DPM - 11/07/2022 7:07 AM EDTAssociated Order(s): IP CONSULT TO PODIATRY Critical Limb Care Consult Note Tristin Powell AGE: 82 y.o. GENDER: male : 1940 EPISODE DATE: 11/03/2022 Assessment/Plan: Tristin Powell is an 82 year old male with a history of Prostate Cancer, CAD, PAD (left foot amputation 2018), Hypertension, HFpEF who presented to [facility] 11/03/2022 with persistent pneumonia despite #2 rounds [...] ankle. He will need to go to [place] for an adjustment to help prevent [...] zoster Hyperlipidemia Hypertension PAD (peripheral artery disease) ([facility]) 01/21/2022 Prostate cancer ([facility]) Vascular disease PAST SURGICAL HISTORY Past Surgical History: Procedure Laterality Date 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/08/2018 Procedure: LEFT MIDFOOT AMPUTATION; Surgeon: Flynn Mann DPM; Location: [facility] OR; Service: Podiatry ANKLE SURGERY Left BYPASS PERONEAL FEMORAL Right 09/07/2018 Procedure: BYPASS PERONEAL FEMORAL, RIGHT SAPHENOUS VEIN HARVEST, COMPLETION ANGIOGRAM; Surgeon: Mohsen Sarabia MD; Location: [facility]; Service: Cardiovascular CARDIAC CATHETERIZATION Left 09/05/2018 Procedure: Angio Lower Extremity; Surgeon: Ben Hahn MD; Location: [facility] VENEREAL DISEASE CONTROL HEAD; Service: Cardiovascular CARDIAC SURGERY 2017 triple bypass EGD N/A 10/10/2018 Procedure: ESOPHAGOGASTRODUODENOSCOPY; Surgeon: Ben Jensen MD; Location: [facility]; Service: Gastroenterology EYE SURGERY Right 2015 [...] Nare route daily . 16 g 12 aylcwsxfldu-mzmsijkny-mhzxwnpy (Trelegy Ellipta) 100-62.5-25 mcg DsDv 1 puff [...] 6' 1 Wt 113.4 kg (250 lb) GpC764% BMI 32.98 kg/m PHYSICAL EXAM General: The [...] Fenton DPM 11/07/2022 at 7:08 AM ote [facility] Work Phone: 1(340) 526-963103-11-2023 Note* Plan of Care - Alma Delia [...] Completed Goal: Knowledge of Enviroment Outcome: Completed [id number] Miscellaneous Notes* Plan of Care - Alm aDelia Page RN - 11/05/2022 7:07 PM EST [...] Outcome: Completed * Quick Note - Rojelio Mackenzie, - 11/04/2022 10:08 AM EST I evaluated [...] in both lower extremities to approximately the njg-ks-mavvo calf area bilaterally, but there are no signs of infection. There is no redness. documented in this [id number] Consult note* Lyn Cerrato, OT - 11/04/2022 [...] intolerance. 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 [...] recently Prior Level of Function Level of Wells - Transfers/Ambulation/Mobility: Independent with household ambulation, Independent with community ambulation Level of Wells - ADLs: Independent Level of Wells - Homemaking: Independent Driving: Patient drives Past Medical History: Diagnosis Date Arthritis Avascular necrosis of bone of hip (HCC) Claudication (HCC) Coronary artery disease Herpes zoster Hyperlipidemia Hypertension PAD (peripheral artery disease) ([facility]) 01/21/2022 Prostate cancer (HCC) Vascular disease Past Surgical History: Procedure Laterality Date 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/08/2018 Procedure: LEFT MIDFOOT AMPUTATION; Surgeon: Flynn Mann DPM; Location: [facility] OR; Service: Podiatry ANKLE SURGERY Left BYPASS PERONEAL FEMORAL Right 09/07/2018 Procedure: BYPASS PERONEAL FEMORAL, RIGHT SAPHENOUS VEIN HARVEST, COMPLETION ANGIOGRAM; Surgeon: Mohsen Sarabia MD; Location: [facility] OR; Service: Cardiovascular CARDIAC CATHETERIZATION Left 09/05/2018 Procedure: Angio Lower Extremity; Surgeon: Ben Hahn MD; Location: [facility] VENEREAL DISEASE CONTROL HEAD; Service: Cardiovascular CARDIAC SURGERY 2017 triple bypass EGD N/A 10/10/2018 Procedure: ESOPHAGOGASTRODUODENOSCOPY; Surgeon: Ben Jensen MD; Location: [facility]; Service: Gastroenterology EYE SURGERY Right 2015 [...] completion of Occupational Therapy Plan of Care. [id number] Consult note* Neetu Thompson RN - 11/04/2022 11:08 AM EST Associated Order(s): IP CONSULT TO CARDIOLOGY - PERIPHERAL VASC DISEASE Information only. Cardiology consult completed by Aminah Calixto CNP 3.10.23. See note for details. [id number] Note* Quick Note - Rojelio Mackenzie DO [...] follow-up Rojelio Mackenzie, PGY-4 Orthopedic Surgery Resident [employer] Work Phone: 1(544) 349-907503-10-2023 Note* Quick Note - Catina Calixto CNP - 11/04/2022 8:06 AM EST Received consult for patient with chronic PAD s/p L fem-peroneal (GSV) bypass per Dr. Sarabia in 2019. He has no acute issues or lower extremity wounds and denies BLE claudication. No indication for additional inpatient work up/resting. Patient can follow up with Dr. Sraabia as an outpatient. [id number] Evaluation + Plan note* Assessment & Plan [...] 2022 was known to be reduced (0.5) [id number] Evaluation + Plan note* Assessment & Plan [...] Dr. Messina as needed if symptoms persist [id number] Consult note* Gustavo Macdonald CNP - 11/04/2022 6:50 AM EST Associated Order(s): IP CONSULT TO ORTHOPEDIC SURGERY CONSULT NOTE Patient Name: Tristin Powell Admit Date: 3080930 MR #: [id number] : 1940 Physicians: Flash Lovelace MD (Family); [...] HTN, prostate cancer presenting to [facility] 11/03 with CAP. Patient also reports left [...] zoster Hyperlipidemia Hypertension PAD (peripheral artery disease) ([facility]) 01/21/2022 Prostate cancer (HCC) Vascular disease Past Surgical History: Procedure Laterality Date 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/08/2018 Procedure: LEFT MIDFOOT AMPUTATION; Surgeon: Flynn Mann DPM; Location: [facility] OR; Service: Podiatry ANKLE SURGERY Left BYPASS PERONEAL FEMORAL Right 09/07/2018 Procedure: BYPASS PERONEAL FEMORAL, RIGHT SAPHENOUS VEIN HARVEST, COMPLETION ANGIOGRAM; Surgeon: Mohsen Sarabia MD; Location: [facility]; Service: Cardiovascular CARDIAC CATHETERIZATION Left 09/05/2018 Procedure: Angio Lower Extremity; Surgeon: Ben Hahn MD; Location: [facility] VENEREAL DISEASE CONTROL HEAD; Service: Cardiovascular CARDIAC SURGERY 2017 triple bypass EGD N/A 10/10/2018 Procedure: ESOPHAGOGASTRODUODENOSCOPY; Surgeon: Ben Jensen MD; Location: [facility]; Service: Gastroenterology EYE SURGERY Right 2015 [...] sprays by Each Nare route daily . ldrprkwuzzw-lxejdokng-drvmoirc (Trelegy Ellipta) 100-62.5-25 mcg DsDv 1 puff [...] should follow-up with his primary care physician. [id number] Note* Plan of Care - Deisi Gimenez RN - 11/04/2022 3:01 AM EST Problem: Actual or potential alteration in health Goal: Absence of healthcare acquired conditions Outcome: Partially Met Goal: Knowledge of Interdisciplinary Plan of Care Outcome: Partially Met Goal: Knowledge of Enviroment Outcome: Partially Met Problem: Pressure Ulcer - Risk of Goal: Absence of pressure ulcer Outcome: Partially Met [id number] History and physical note* Duke Claros MD - 11/03/2022 9:58 PM EST [facility] History and Physical Note 11/03/22 Tristin Powell 1940 [id number] Assessment/Plan: Tristin Powell is a 82 y.o. male with a history of Prostate Cancer, CAD, PAD (left foot amputation 2018) HTN, HFpEF who presented to [facility] 11/03/2022 with persistent pneumonia despite #2 rounds [...] HTN, HFpEF who presented to [facility] 11/03/2022 with persistent pneumonia despite #2 rounds [...] Arthritis Avascular necrosis of bone of hip ([facility]) Claudication (HCC) Coronary artery disease Herpes zoster Hyperlipidemia Hypertension PAD (peripheral artery disease) ([facility]) 01/21/2022 Prostate cancer ([facility]) Vascular disease Past Surgical History: Procedure Laterality Date 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/08/2018 Procedure: LEFT MIDFOOT AMPUTATION; Surgeon: Flynn Mann DPM; Location: [facility] OR; Service: Podiatry ANKLE SURGERY Left BYPASS PERONEAL FEMORAL Right 09/07/2018 Procedure: BYPASS PERONEAL FEMORAL, RIGHT SAPHENOUS VEIN HARVEST, COMPLETION ANGIOGRAM; Surgeon: Mohsen Sarabia MD; Location: [facility]; Service: Cardiovascular CARDIAC CATHETERIZATION Left 09/05/2018 Procedure: Angio Lower Extremity; Surgeon: Ben Hahn MD; Location: [facility] VENEREAL DISEASE CONTROL HEAD; Service: Cardiovascular CARDIAC SURGERY 2017 triple bypass EGD N/A 10/10/2018 Procedure: ESOPHAGOGASTRODUODENOSCOPY; Surgeon: Ben Jensen MD; Location: [facility]; Service: Gastroenterology EYE SURGERY Right 2015 [...] 64 GLUCOSE mg/dL 92 CALCIUM mg/dL 9.5 [id number] History and physical note* Duke Claros MD - 11/03/2022 9:58 PM EST [facility] History and Physical Note 11/03/22 Tristin Powell 1940 [id number] Assessment/Plan: Tristin Powell is a 82 y.o. male with a history of Prostate Cancer, CAD, PAD (left foot amputation 2018) HTN, HFpEF who presented to [facility] 11/03/2022 with persistent pneumonia despite #2 rounds [...] HTN, HFpEF who presented to [facility] 11/03/2022 with persistent pneumonia despite #2 rounds [...] MIDFOOT AMPUTATION; Surgeon: Flynn Mann DPM; Location: [facility] OR; Service: Podiatry ANKLE SURGERY Left BYPASS PERONEAL FEMORAL Right 09/07/2018 Procedure: BYPASS PERONEAL FEMORAL, RIGHT SAPHENOUS VEIN HARVEST, COMPLETION ANGIOGRAM; Surgeon: Mohsen Sarabia MD; Location: [facility]; Service: Cardiovascular CARDIAC CATHETERIZATION Left 09/05/2018 Procedure: Angio Lower Extremity; Surgeon: Ben Hahn MD; Location: [facility] VENEREAL DISEASE CONTROL HEAD; Service: Cardiovascular CARDIAC SURGERY 2017 triple bypass EGD N/A 10/10/2018 Procedure: ESOPHAGOGASTRODUODENOSCOPY; Surgeon: Ben Jensen MD; Location: [facility]; Service: Gastroenterology EYE SURGERY Right 2015 [...] 92 CALCIUM mg/dL 9.5 documented in this [id number] Emergency department Note* MIGUE Berumen - 11/03/2022 9:35 PM EST [facility] to write admission orders. [phone]. [id number] Emergency department Note* MIGUE Berumen - 11/03/2022 9:35 PM EST [facility] to write admission orders. [phone]. * Sharron Khan PA-C - 11/03/2022 5:46 [...] so he went to the ED in [facility]. He had a repeat chest [...] with COPD and [facility] and [facility] [...] zoster Hyperlipidemia Hypertension PAD (peripheral artery disease) ([facility]) 01/21/2022 Prostate cancer ([facility]) Vascular disease Labs Reviewed NT PRO BNP [...] Normal BASIC METABOLIC PANEL - Normal Narrative: [facility] Services has implemented the eGFR calculation approach that does not have a coefficient for race that conforms to the NKF-ASN Task Force Recommendations. CBC AND DIFFERENTIAL Narrative: The following orders were created for panel order CBC w/ Diff. Procedure Abnormality Status --------- ------ CBC Auto Differential[[id number]] Abnormal Final result Please view results for [...] this documentation, there is a possibility of giled-l-gnnu errors inherent to this technology that may be missed during proofreading.) Sharron Khan PA-C 11/03/22 8693 * Aimee Owens RN - 11/03/2022 12:43 PM EST Pt arrives to the ED with multiple complaints. Per daughter patient has fluid on his lungs and there is concern for pneumonia. Daughter also states that there is concern for infection in his foot amputation from 2019. documented in this [id number] Note* ED Attestation Note - Ronnie Montoya [...] in both lower extremities to approximately the bhd-hs-yyfhb calf area bilaterally, but there are no signs of infection. There is no redness. [place] Work Phone: [phone] Physician Emergency department Note* Sharron Khan PA-C [...] so he went to the ED in [facility]. He had a repeat chest [...] Normal BASIC METABOLIC PANEL - Normal Narrative: [facility] Laboratory Services has implemented the eGFR calculation approach that does not have a coefficient for race that conforms to the NKF-ASN Task Force Recommendations. CBC AND DIFFERENTIAL Narrative: The following orders were created for panel order CBC w/ Diff. Procedure Abnormality Status --------- ------ CBC Auto Differential[[id number]] Abnormal Final result Please view results for [...] this documentation, there is a possibility of vetbh-q-ooga errors inherent to this technology that may be missed during proofreading.) Sharron Khan PA-C 11/03/22 3731 [facility] Work Phone: [phone] Emergency department Triage note* Aimee Owens RN - 11/03/2022 12:43 PM EST Pt arrives to the ED with multiple complaints. Per daughter patient has fluid on his lungs and there is concern for pneumonia. Daughter also states that there is concern for infection in his foot amputation from 2019. [id number] History of Present illness Narrative* Violetta Borjas MA - 09/20/2022 11:[address] Sarabia has ordered a carotid duplex. An attempt was made by phone and a letter was mailed with no response. Patient is due for testing for PAD 05/20. documented in this [id number] History of Present illness Narrative* Dahiana Coelho - 07/14/2022 11:00 AM EST Ortho Nurse - Established Patient Intake Room#: 5 Date: 07/14/2022 10:49 AM Patient: Tristin Powell Sr. MR#: [id number] : 1940 Age: 82 y.o. 1yr R [...] 10:49 AM Patient: Tristin Powell . MR#: [id number] : 1940 Age: 82 y.o. 1yr R [...] has No Known Allergies. documented in this [facility]09-06-2022 Evaluation note* Encounter Date Diagnosis Assessment [...] will see him back in 6 months. [facility] Other 08-23-2022 Evaluation note* Encounter Date Diagnosis [...] He understands and agrees with that plan. [employer] Other 08-22-2022 History of Present illness Narrative* Aaron Fenton DPM - 04/18/2022 5:23 PM EDT Refer to note during admission documented in this [id number] Hospital course Narrative* Alexander Pascual MD - 04/15/2022 6:51 PM EDT Images from the original note were not included. [facility] DISCHARGE SUMMARY Tristin Powell Account: [id number] Admitted: 04/14/2022 Discharge Date/Time: 04/15/22 / 7:44 PM Clinical Summary Handoff to PCP Routine hospital follow up Tristin Powell is a 82 y.o. male with a history of HTN, HFpEF, PAD with bypass/stenting/amputation, CAD who recently discharged 01/21/22 after cellulitis L ankle who presented to [facility] Observation 04/14/2022 with worsening R leg pain [...] Physician(s) Family: Flash Lovelace MD, , Address: [address] [place], [place] [id number] Follow Up: Mohsen Sarabia MD [facility] [address] Follow up Call office to schedule followup appointment in ~2 weeks Flash Lovelace MD [address] [place], [place] [id number] Follow up As needed Laboratory Follow Up by [facility]: None Additional Information: Patient seen and examined day of discharge. For more information regarding patient's care, including complete radiology reports, please contact [facility] at Patient instructions, including activity, were given to the patient/family at discharge. Please seethe After Visit Summary in the medical record for details. Completed by: Alexander Pascual on 04/15/22, 7:44 PM documented in this [id number] Note* Plan of Care - Lizz Damon [...] Goal: Absence of falls Outcome: Partially Met [id number] Miscellaneous Notes* Plan of Care - Lizz [...] falls Outcome: Partially Met documented in this [id number] History of Present illness Narrative* Rima Wu DO - 04/15/2022 1:01 PM EDT [facility] Observation Progress Note 04/15/2022 Tristin Powell 1940 [id number] Assessment/Plan: Tristin Powell is a 82 y.o. male with a history of HTN, HFpEF, PAD with bypass/stenting/amputation, CAD who recently discharged 01/21/22 after cellulitis L ankle who presented to [facility] Observation 04/14/2022 with worsening R leg pain [...] ankle. YAMILE with mod PAD in R AYMILE. Aspirin xarelto statin continued. Dr. Sarabia of [...] Estimated discharge date:04/15/22 Subjective: Patient new to pr, seen and examined, with labs/imaging reviewed and [...] Date INR 1.1 04/14/2022 documented in this [id number] Consult note* Darrick Calixto DO - 04/15/2022 [...] CABG x3 who presented to [facility] on 04/14/2022 with CLI of RLE. YAMILE [...] am - Discussed with Dr. Cornell Calixto, General Surgery PGY-2 Please contact surgical project management intern licensed occupational therapist 5PM-6AM and weekends - #[phone] VTS Pager - #[phone] HISTORY OF PRESENT ILLNESS Tristin Powell is a 82 y.o. male with history of PAD, s/p L transmetatarsal amputation (2018, Dr. Mann), s/p peroneal femoral bypass R saphenous vein harvest (2019, Dr. Sarabia), CAD s/p CABG x3 who presented to [facility] on 04/14/2022 with CLI of RLE. Patient presenting with 6 weeks of worsened right lower extremity pain. Patient is limited in his mobility due to his left-sided TMA. Patient reports increasing numbness and pain in his foot as well as claudication symptoms while ambulating. Patient was directed to [place] by his PCP for evaluation. Per discussion with patient and his son, his lower extremity changes are chronic in nature and he does not have an acute surgical emergency. Patient given the option of outpatient follow-up given these nonacute changes however patient request to stay until the morning to see Dr. Sarabia for evaluation as he lives an hour and in a alf and has difficulty getting here to see [...] Arthritis Avascular necrosis of bone of hip ([facility]) Claudication ([facility]) Coronary artery disease Herpes zoster Hyperlipidemia Hypertension PAD (peripheral artery disease) ([facility]) 01/21/2022 Prostate cancer ([facility]) Vascular disease Past Surgical History: Procedure Laterality Date 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/08/2018 Procedure: LEFT MIDFOOT AMPUTATION; Surgeon: Flynn Mann DPM; Location: [facility] OR; Service: Podiatry ANKLE SURGERY Left BYPASS PERONEAL FEMORAL Right 09/07/2018 Procedure: BYPASS PERONEAL FEMORAL, RIGHT SAPHENOUS VEIN HARVEST, COMPLETION ANGIOGRAM; Surgeon: Mohsen Sarabia MD; Location: [facility] NEURO OR; Service: Cardiovascular CARDIAC CATHETERIZATION Left 09/05/2018 Procedure: Angio Lower Extremity; Surgeon: Ben Hahn MD; Location: [facility] VENEREAL DISEASE CONTROL HEAD; Service: Cardiovascular CARDIAC SURGERY 2017 triple bypass EGD N/A 10/10/2018 Procedure: ESOPHAGOGASTRODUODENOSCOPY; Surgeon: Ben Jensen MD; Location: [facility]; Service: Gastroenterology EYE SURGERY Right 2015 FOOT [...] personally examined the patient and agree with resident/GAME ENGINEER/PA assessment and plan with the following additional [...] it can be done as an outpatient. [employer] Work Phone: [phone]) 456-997608-19-2022 Consult note* Darrick Calixto, - 04/15/2022 2:37 [...] CABG x3 who presented to [facility] on 04/14/2022 with CLI of RLE. YAMILE [...] am - Discussed with Dr. Cornell Calixto, General Surgery PGY-2 Please contact surgical project management intern licensed occupational therapist 5PM-6AM and weekends - #[phone] VTS Pager - #[phone] HISTORY OF PRESENT ILLNESS Tristin Powell is a 82 y.o. male with history of PAD, s/p L transmetatarsal amputation (2019, Dr. Mann), s/p peroneal femoral bypass R saphenous vein harvest (2019, Dr. Sarabia), CAD s/p CABG x3 who presented to [facility] on 04/14/2022 with CLI of RLE. Patient presenting with 6 weeks of worsened right lower extremity pain. Patient is limited in his mobility due to his left-sided TMA. Patient reports increasing numbness and pain in his foot as well as claudication symptoms while ambulating. Patient was directed to [place] by his PCP for evaluation. Per discussion with patient and his son, his lower extremity changes are chronic in nature and he does not have an acute surgical emergency. Patient given the option of outpatient follow-up given these nonacute changes however patient request to stay until the morning to see Dr. Sarabia for evaluation as he lives an hour and in a alf and has difficulty getting here to see [...] zoster Hyperlipidemia Hypertension PAD (peripheral artery disease) ([facility]) 01/21/2022 Prostate cancer ([facility]) Vascular disease Past Surgical History: Procedure Laterality Date 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/08/2018 Procedure: LEFT MIDFOOT AMPUTATION; Surgeon: Flynn Mann DPM; Location: [facility] OR; Service: Podiatry ANKLE SURGERY Left BYPASS PERONEAL FEMORAL Right 09/07/2018 Procedure: BYPASS PERONEAL FEMORAL, RIGHT SAPHENOUS VEIN HARVEST, COMPLETION ANGIOGRAM; Surgeon: Mohsen Sarabia MD; Location: [facility] NEURO OR; Service: Cardiovascular CARDIAC CATHETERIZATION Left 09/05/2018 Procedure: Angio Lower Extremity; Surgeon: Ben Hahn MD; Location: [facility] VENEREAL DISEASE CONTROL HEAD; Service: Cardiovascular CARDIAC SURGERY 2017 triple bypass EGD N/A 10/10/2018 Procedure: ESOPHAGOGASTRODUODENOSCOPY; Surgeon: Ben Jensen MD; Location: [facility]; Service: Gastroenterology EYE SURGERY Right 2015 [...] personally examined the patient and agree with resident/GAME ENGINEER/PA assessment and plan with the following additional [...] done as an outpatient. documented in this [id number] Emergency department Note* Rose Bautista RN - 04/15/2022 12:13 AM EDT Patient moved into hospital bed [id number] Emergency department Note* Rose Bautista RN - 04/15/2022 12:13 AM EDT Patient moved into hospital bed * MIGUE Berumen - 04/14/2022 11:24 PM EDT [facility] to write admission orders [id number]. * Carson Brock MD - 04/14/2022 8:24 PM EDT [facility] EMERGENCY DEPARTMENT PCP - Flash Lovelace MD Chief Complaint Patient presents with Leg Swelling HPI MEDICAL DECISION MAKING 82-year-old male presents to [facility] emergency department chief complaint of right [...] an ultrasound ordered by his doctor at [facility] with findings concerningfor stenosis to the superficial femoral artery as well as an occlusion of his popliteal artery. His primary doctor recommended he present here for evaluation from his vascular surgeon Dr. Sarabia and patient presents here via triage. Patient reports compliance with home medications including anticoagulation with Xarelto and aspirin. 82-year-old male presents to [facility] emergency department chief plaint of right [...] time. He will be admitted to the [facility] observation unit. CLINICAL IMPRESSION 1. PAD (peripheral [...] limits BASIC METABOLIC PANEL - Normal Narrative: [facility] Laboratory Services has implemented the [...] Procedure Abnormality Status --------- ------ CBC Auto Differential[[id number]] Abnormal Final result Please view results for [...] 5. Chronic findings including severe pancolonic diverticulosis. [facility] Workstation ID: [id number] Medications Ordered/Given During ED [...] Arthritis Avascular necrosis of bone of hip ([facility]) Claudication ([facility]) Herpes zoster Hyperlipidemia Hypertension PAD (peripheral artery disease) ([facility]) 01/21/2022 Prostate cancer ([facility]) Vascular disease Past Surgical History Past Surgical History: Procedure Laterality Date 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/08/2018 Procedure: LEFT MIDFOOT AMPUTATION; Surgeon: Flynn Mann DPM; Location: [facility] OR; Service: Podiatry ANKLE SURGERY Left BYPASS PERONEAL FEMORAL Right 09/07/2018 Procedure: BYPASS PERONEAL FEMORAL, RIGHT SAPHENOUS VEIN HARVEST, COMPLETION ANGIOGRAM; Surgeon: Mohsen Sarabia MD; Location: [facility] NEURO OR; Service: Cardiovascular CARDIAC CATHETERIZATION Left 09/05/2018 Procedure: Angio Lower Extremity; Surgeon: Ben Hahn MD; Location: [facility] VENEREAL DISEASE CONTROL HEAD; Service: Cardiovascular CARDIAC SURGERY 2017 triple bypass EGD N/A 10/10/2018 Procedure: ESOPHAGOGASTRODUODENOSCOPY; Surgeon: Ben Jensen MD; Location: [facility]; Service: Gastroenterology EYE SURGERY Right 2015 [...] . IMPRESSION: 1. PAD (peripheral artery disease) ([facility]) 2. Pain of right lower extremity 3. Hypertension, unspecified type *Management decisions made amidst COVID-19 public health emergency* *Please note that portions of this note were created using [employer] voice recognition software.* Carson Brock MD 04/14/22 [id number] * Amairani Bucio RN - 04/14/2022 7:29 PM EDT Patient arrives in a wheelchair with a cc of right leg swelling. The patient was at [facility] and they told him he has a blood clot in the right leg and he needs to come down to [facility] to see hisvascular surgeon that he sees here. documented in this [id number] History and physical note* Jagruti Moore Jr., MD - 04/14/2022 11:51 PM EDT Images from the original note were not included. [employer] Obs History and Physical Note 04/15/22 Tristin Powell 1940 [id number] Assessment/Plan: Tristin Powell is a 82 y.o. male with a history of HTN, HFpEF, PAD with bypass/stenting/amputation, CAD who recently discharged 01/21/22 after cellulitis L ankle who presented to [facility] Observation 04/14/2022 with worsening R leg pain [...] zoster Hyperlipidemia Hypertension PAD (peripheral artery disease) ([facility]) 01/21/2022 Prostate cancer ([facility]) Vascular disease Past Surgical History: Procedure Laterality Date 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/08/2018 Procedure: LEFT MIDFOOT AMPUTATION; Surgeon: Flynn Mann DPM; Location: [facility] OR; Service: Podiatry ANKLE SURGERY Left BYPASS PERONEAL FEMORAL Right 09/07/2018 Procedure: BYPASS PERONEAL FEMORAL, RIGHT SAPHENOUS VEIN HARVEST, COMPLETION ANGIOGRAM; Surgeon: Mohsen Sarabia MD; Location: [facility] NEURO OR; Service: Cardiovascular CARDIAC CATHETERIZATION Left 09/05/2018 Procedure: Angio Lower Extremity; Surgeon: Ben Hahn MD; Location: [facility] VENEREAL DISEASE CONTROL HEAD; Service: Cardiovascular CARDIAC SURGERY 2017 triple bypass EGD N/A 10/10/2018 Procedure: ESOPHAGOGASTRODUODENOSCOPY; Surgeon: Ben Jensen MD; Location: [facility]; Service: Gastroenterology EYE SURGERY Right 2015 [...] Results Component Value Date INR 1.1 04/14/2022 [id number] History and physical note* Jagruti Moore Jr., MD - 04/14/2022 11:51 PM EDT Images from the original note were not included. [facility] Obs History and Physical Note 04/15/22 Tristin Powell 1940 [id number] Assessment/Plan: Tristin Powell is a 82 y.o. male with a history of HTN, HFpEF, PAD with bypass/stenting/amputation, CAD who recently discharged 01/21/22 after cellulitis L ankle who presented to [facility] Observation 04/14/2022 with worsening R leg pain [...] zoster Hyperlipidemia Hypertension PAD (peripheral artery disease) ([facility]) 01/21/2022 Prostate cancer ([facility]) Vascular disease Past Surgical History: Procedure Laterality Date 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/08/2018 Procedure: LEFT MIDFOOT AMPUTATION; Surgeon: Flynn Mann DPM; Location: [facility] OR; Service: Podiatry ANKLE SURGERY Left BYPASS PERONEAL FEMORAL Right 09/07/2018 Procedure: BYPASS PERONEAL FEMORAL, RIGHT SAPHENOUS VEIN HARVEST, COMPLETION ANGIOGRAM; Surgeon: Mohsen Sarabia MD; Location: [facility] NEURO OR; Service: Cardiovascular CARDIAC CATHETERIZATION Left 09/05/2018 Procedure: Angio Lower Extremity; Surgeon: Ben Hahn MD; Location: [facility] VENEREAL DISEASE CONTROL HEAD; Service: Cardiovascular CARDIAC SURGERY 2017 triple bypass EGD N/A 10/10/2018 Procedure: ESOPHAGOGASTRODUODENOSCOPY; Surgeon: Ben Jensen MD; Location: [facility]; Service: Gastroenterology EYE SURGERY Right 2015 [...] Date INR 1.1 04/14/2022 documented in this [id number] Emergency department Note* MIGUE Berumen - 04/14/2022 11:24 PM EDT [facility] to write admission orders [id number]. [id number] Physician Emergency department Note* Carson Brock MD - 04/14/2022 8:24 PM EDT [facility] EMERGENCY DEPARTMENT PCP - Flash Lovelace MD Chief Complaint Patient presents with Leg Swelling HPI MEDICAL DECISION MAKING 82-year-old male presents to [facility] emergency department chief complaint of right [...] an ultrasound ordered by his doctor at [facility] with findings concerningfor stenosis to the superficial femoral artery as well as an occlusion of his popliteal artery. His primary doctor recommended he present here for evaluation from his vascular surgeon Dr. Sarabia and patient presents here via triage. Patient reports compliance with home medications including anticoagulation with Xarelto and aspirin. 82-year-old male presents to [facility] emergency department chief plaint of right [...] time. He will be admitted to the [facility] observation unit. CLINICAL IMPRESSION 1. PAD (peripheral [...] limits BASIC METABOLIC PANEL - Normal Narrative: [facility] Laboratory Services has implemented the [...] Procedure Abnormality Status --------- ------ CBC Auto Differential[[id number]] Abnormal Final result Please view results for [...] severe pancolonic diverticulosis. SZD/[facility] Workstation ID: [id number] Medications Ordered/Given During ED [...] -- -- -- 16 -- -- -- 04/14/222099 (!) 161/77 -- -- 77 12 96 [...] zoster Hyperlipidemia Hypertension PAD (peripheral artery disease) ([facility]) 01/21/2022 Prostate cancer ([facility]) Vascular disease Past Surgical History Past Surgical History: Procedure Laterality Date 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/08/2018 Procedure: LEFT MIDFOOT AMPUTATION; Surgeon: Flynn Mann DPM; Location: [facility] OR; Service: Podiatry ANKLE SURGERY Left BYPASS PERONEAL FEMORAL Right 09/07/2018 Procedure: BYPASS PERONEAL FEMORAL, RIGHT SAPHENOUS VEIN HARVEST, COMPLETION ANGIOGRAM; Surgeon: Mohsen Sarabia MD; Location: [facility] NEURO OR; Service: Cardiovascular CARDIAC CATHETERIZATION Left 09/05/2018 Procedure: Angio Lower Extremity; Surgeon: Ben Hahn MD; Location: [facility] VENEREAL DISEASE CONTROL HEAD; Service: Cardiovascular CARDIAC SURGERY 2017 triple bypass EGD N/A 10/10/2018 Procedure: ESOPHAGOGASTRODUODENOSCOPY; Surgeon: Ben Jensen MD; Location: [facility]; Service: Gastroenterology EYE SURGERY Right 2015 [...] Hypertension, unspecified type *Management decisions made amidst [facility] public health emergency* *Please note that portions of this note were created using [employer] voice recognition software.* Carson Brock MD 04/14/22 1340 [facility] Work Phone: [phone]) 285-580808-18-2022 Emergency department Triage note* Amairani Bucio RN - 04/14/2022 7:29 PM EDT Patient arrives in a wheelchair with a cc of right leg swelling. The patient was at [facility] and they told him he has a blood clot in the right leg and he needs to come down to [facility] to see hisvascular surgeon that he sees here. [id number] History of Present illness Narrative* Katie Anna RN - 04/14/2022 5:54 PM EDT Vascular Resident paged twice, awaiting response Dr. Sarabia notified that patient is coming to [facility] ED for further evaluation. 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 He reports [...] MIDFOOT AMPUTATION; Surgeon: Flynn Mann DPM; Location: [facility] OR; Service: Podiatry ANKLE SURGERY Left BYPASS PERONEAL FEMORAL Right 09/07/2018 Procedure: BYPASS PERONEAL FEMORAL, RIGHT SAPHENOUS VEIN HARVEST, COMPLETION ANGIOGRAM; Surgeon: Mohsen Sarabia MD; Location: [facility] NEURO OR; Service: Cardiovascular CARDIAC CATHETERIZATION Left 09/05/2018 Procedure: Angio Lower Extremity; Surgeon: Ben Hahn MD; Location: [facility] VENEREAL DISEASE CONTROL HEAD; Service: Cardiovascular CARDIAC SURGERY 2017 triple bypass EGD N/A 10/10/2018 Procedure: ESOPHAGOGASTRODUODENOSCOPY; Surgeon: Ben Jensen MD; Location: [facility]; Service: Gastroenterology EYE SURGERY Right 2015 [...] Radiology, Cardiology, and Medications documented in this [id number] History of Present illness Narrative* Alma Delia Page RN - 01/21/2022 2:58 PM EDT This RN went over discharge instructions and prescriptions with the patient. Pt verbalized understanding. All questions were answered. IV was removed. All personal belongings sent home with patient. PT was taken down by wheelchair to [facility] main entrance. * Gustavo Gonzalez DO - 01/21/2022 7:01 AM EDT [facility] Inpatient Progress Note 01/21/2022 Tristin Powell 1940 [id number] Assessment/Plan: Tristin Hortensia Powell is a 82 y.o. male with a history of HTN, CAD, PVD who presented to [facility] 01/18/2022 with progressive left ankle pain, redness, swelling not improved with oral antibiotics. Admit XR non-acute, temp 100.7, CRP 63.5, WBC 6.76, ESR 18. Cultures with no growth to date. LLE Cellulitis: Per chart, hx MRSA in 2019. 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 Admit temp 100.7, has remained afebrile ever since. No leukocytosis. Admit blood cultures NGTD. Admit CTA/runoff with no evidence of deeper infection, LLE graft patent. Continue vancomycin, will plan to transition to PO Bactrim on 01/21.Continue pain control. Recommend outpatient follow-up with [facility] in [place]. Bilateral PAD: Per history. LLE angio w/ [...] 9.2 8.4 -- 9.2 Associated attestation - Muna Otto MD - 01/21/2022 11:27 AM EDT Plan for discharge today. He will complete the antibiotics he already has at home (8 days keflex/bactrim). We gave him 3 days of additional bactrim to complete 14d course. He will follow up with Pulmonary for PFTs and PET scan. He will follow up with PCP for further monitoring of pancreatic lesion.He will follow up with his quality improvement engineer and [facility] in [place] to determine if his prothesis could be [...] calcified granulomas. -Solitary lung nodule malignancy risk ([place]) score: 17.6% -Recommend PET as an outpatient and follow up with [facility] closer to home. Possible biopsy iffindings persist. [...] Carson Banks MD 1:01 PM 01/20/22 Pager: [phone] Chief Complaint Chief Complaint Patient presents with [...] and recommend this to be done at [facility] with either Drs. Carson Gallagher or [...] Medicine 2:56 PM 01/20/22 * Rossana Fernandez RP,PharmD - 01/20/2022 11:23 AM EDT PHARMACOTHERAPY KINETICS QUICK NOTE Due to decrease in serum creatinine, vancomycin will be changed to 1750mg Q18H. Will plan for next vancomycin level 01/23 at 1200. Pharmacist: Rossana Fernandez RP,PharmD Contact Number: [phone] ([employer]) or secure chat * Gustavo Gonzalez DO - 01/20/2022 7:01 AM EDT [facility] Inpatient Progress Note 01/20/2022 Tristin Powell 1940 [id number] Assessment/Plan: Tristin Powell is a 82 y.o. male with a history of HTN, CAD, PVD who presented to [facility] 01/18/2022 with progressive left ankle pain, redness, swelling not improved with oral antibiotics. Admit XR non-acute, temp 100.7, CRP 63.5, WBC 6.76, ESR 18. LLE Cellulitis: Per chart, hx MRSA in 2018. 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 Admit temp 100.7, has remained afebrile ever since. No leukocytosis. Admit blood cultures NGTD. Admit CTA/runoff with no evidence of deeper infection, LLE graft patent. Continue vancomycin, will plan to transition to PO Bactrim on 01/21.Continue pain control. Recommend outpatient follow-up with [facility] in [place]. Bilateral PAD: Per history. LLE angio w/ [...] CHLORIDE mmol/L 108 -- 103 BICARB mmol/L -- 26 BUN mg/dL 13 -- 14 [...] Amputation, CAD who presented to [facility] on 01/18/22 with 3-4 days of progressive [...] improving. Discussed he should follow up with [facility] in [place] to further explore if his stump prothesis [...] Rosas MD - 01/19/2022 6:43 AM EDT [facility] Inpatient Progress Note 01/19/2022 Tristin Powell 1940 [id number] Assessment/Plan: Tristin Powell is a 82 y.o. male with a history of HTN, CAD, PVD who presented to [facility] 01/18/2022 with progressive left ankle pain, redness, swelling not improved with oral antibiotics. Admit XR non-acute, temp 100.7, CRP 63.5, WBC 6.76, ESR 18. LLE Cellulitis: Per chart, hx MRSA in 2019. 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 Admit temp 100.7. [...] last 7 days Lab Units 01/19/22 0336 01/18/22211601/18/225 WBC K/mcL 5.34 -- 6.76 HGB g/dL [...] Amputation, CAD who presented to [facility] on 01/18/22 with 3-4 days of progressive [...] urine output (if available) daily.vancomyicin / aminoglycoside recommendations:[id number]:s} Pharmacy will continue to follow, order levels, and make adjustments as needed. Please call pharmacy with questions. Current antibiotic regimen includes: ceftriaxone 2000mg q24h Objective: Ht Readings from Last 1 Encounters: 01/18/22 6' 2 (188 cm) Wt Readings from Last 1 Encounters: 01/18/22 113.4 kg (250 lb) [place] body weight: 82.2 kg (181 lb 3.5 [...] Component Value Units Date/Time Blood Culture Aerobic/Anaerobic [[id number]] (Normal) Collected: 01/18/222104 Order Status: Completed Specimen: Blood, Peripheral Updated: 01/18/222357 Culture In Progress; No Growth to Date Blood Culture Aerobic/Anaerobic [[id number]] (Normal) Collected: 01/18/222104 Order Status: Completed Specimen: Blood, Peripheral Updated: 01/18/222357 Culture In Progress; No Growth to Date Pharmacist: El Owen RPh,PharmD Contact Number: documented in this [id number] Hospital course Narrative* Muna Otto MD - 01/21/2022 2:32 PM EDT Images from the original note were not included. [facility] DISCHARGE SUMMARY Tristin Powell Account: [id number] Admitted: 01/18/2022 PCP: Flash Lovelace MD Discharge Date/Time: 01/21/22 / 2:32 PM Handoff to PCP PCP to [...] Amputation, CAD who presented to [facility] on 01/18/22 with 3-4 days of progressive [...] lesion. He will follow up with his quality improvement engineer (Dr. Mann) and [facility] in [place] to determine if his prothesis could be [...] Your Medications These medications were sent to [facility] [id number] - [facility] [address]) [address] [facility] [address] albuterol 2.5 mg /3 mL (0.083 %) nebulizer solution sulfamethoxazole-trimethoprim 800-160 mg per tablet tiotropium bromide 2.5 mcg/actuation Mist Physician(s) Family: Flash Lovelace MD, , Address: [address] [place] [address] / [facility] [address] Follow Up: Flash Lovelace MD [address] [facility] [address] Follow up Carson Gallagher MD [address] [place] [address] [facility] [id number] Follow up Please call to set up appointment to follow up on your lung nodule and newly diagnosed COPD (chronic obstructive pulmonary disease) Flynn Mann DPM [address] [facility] [address] Schedule an appointment as soon as possible for a visit Additional Information: Patient seen and examined day of discharge. For more information regarding patient's care, including complete radiology reports, please contact [facility] at Patient instructions, including activity, were given to the patient/family at discharge. Please seethe After Visit Summary in the medical record for details. Time spent on discharge: > 30 minutes Completed by: Muna Otto on 01/21/22, 2:32 PM documented in this [id number] Hospital Discharge instructions * Discharge Instr - AVS First Page* Muna Otto MD - 01/21/2022 11:26 AM EDT Dear Mr. Powell, You came to [facility] for left ankle pain, redness, and swelling [...] PCP to discuss further pancreatic workup - [facility] in [place], [place] to discuss your prosthetics. Thank you for letting us be a part of your care team, [facility] * Attachments The following attachments cannot be sent through Care Everywhere. * Cellulitis (Malian) * Pulmonary Nodules: General Info (Malian) documented in this [id number] Consult note* Leeanna Melgoza, OT - 01/21/2022 [...] deficit. The patient's home setup is a tub attendant, family / caregiver support is a tub attendant for return to prior level of function. The patient's compliance is a tub attendant to return to prior level of function. [...] Function Receives Help From: Family Level of Wells - Transfers/Ambulation/Mobility: Independent with functional transfers, Independent with household ambulation, Independent with community ambulation Level of Wells - ADLs: Independent Level of Wells - Homemaking: Independent Driving: Patient drives Vocational: [...] MIDFOOT AMPUTATION; Surgeon: Flynn Mann DPM; Location: [facility] OR; Service: Podiatry ANKLE SURGERY Left BYPASS PERONEAL FEMORAL Right 09/07/2018 Procedure: BYPASS PERONEAL FEMORAL, RIGHT SAPHENOUS VEIN HARVEST, COMPLETION ANGIOGRAM; Surgeon: Mohsen Sarabia MD; Location: [facility] OR; Service: Cardiovascular CARDIAC CATHETERIZATION Left 09/05/2018 Procedure: Angio Lower Extremity; Surgeon: Ben Hahn MD; Location: [facility] VENEREAL DISEASE CONTROL HEAD; Service: Cardiovascular CARDIAC SURGERY 2017 triple bypass EGD N/A 10/10/2018 Procedure: ESOPHAGOGASTRODUODENOSCOPY; Surgeon: Ben Jensen MD; Location: [facility]; Service: Gastroenterology EYE SURGERY Right 2015 [...] completion of Occupational Therapy Plan of Care. [id number] Consult note* Leeanna Melgoza OT - 01/21/2022 [...] deficit. The patient's home setup is a tub attendant, family / caregiver support is a tub attendant for return to prior level of function. The patient's compliance is a tub attendant to return to prior level of function. [...] Function Receives Help From: Family Level of Wells - Transfers/Ambulation/Mobility: Independent with functional transfers, Independent with household ambulation, Independent with community ambulation Level of Wells - ADLs: Independent Level of Wells - Homemaking: Independent Driving: Patient drives Vocational: [...] MIDFOOT AMPUTATION; Surgeon: Flynn Mann DPM; Location: [facility] OR; Service: Podiatry ANKLE SURGERY Left BYPASS PERONEAL FEMORAL Right 09/07/2018 Procedure: BYPASS PERONEAL FEMORAL, RIGHT SAPHENOUS VEIN HARVEST, COMPLETION ANGIOGRAM; Surgeon: Mohsen Sarabia MD; Location: [facility] OR; Service: Cardiovascular CARDIAC CATHETERIZATION Left 09/05/2018 Procedure: Angio Lower Extremity; Surgeon: Ben Hahn MD; Location: [facility] VENEREAL DISEASE CONTROL HEAD; Service: Cardiovascular CARDIAC SURGERY 2017 triple bypass EGD N/A 10/10/2018 Procedure: ESOPHAGOGASTRODUODENOSCOPY; Surgeon: Ben Jensen MD; Location: [facility]; Service: Gastroenterology EYE SURGERY Right 2015 [...] Contact guard assist (when in stand-scoot posture.) 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 Prior Level of Function Level of Wells - Transfers/Ambulation/Mobility: Independent with functional transfers, Independent with household ambulation Level of Wells - ADLs: Independent Subjective Impression - Prior [...] MIDFOOT AMPUTATION; Surgeon: Flynn Mann DPM; Location: [facility] OR; Service: Podiatry ANKLE SURGERY Left BYPASS PERONEAL FEMORAL Right 09/07/2018 Procedure: BYPASS PERONEAL FEMORAL, RIGHT SAPHENOUS VEIN HARVEST, COMPLETION ANGIOGRAM; Surgeon: Mohsen Sarabia MD; Location: [facility] OR; Service: Cardiovascular CARDIAC CATHETERIZATION Left 09/05/2018 Procedure: Angio Lower Extremity; Surgeon: Ben Hahn MD; Location: [facility] VENEREAL DISEASE CONTROL HEAD; Service: Cardiovascular CARDIAC SURGERY 2017 triple bypass EGD N/A 10/10/2018 Procedure: ESOPHAGOGASTRODUODENOSCOPY; Surgeon: Ben Jensen MD; Location: [facility]; Service: Gastroenterology EYE SURGERY Right 2015 [...] as an outpatient and follow up with [facility] closer to home. Possible biopsy iffindings persist. [...] Ngoc Banks MD Preliminary Medicine PGY1 Pager: [phone] Reason for Consultation: Suspicious Pulm nodule with [...] dust over the years while working in [employer]. Denies recent weight loss. Notes a few [...] MIDFOOT AMPUTATION; Surgeon: Flynn Mann DPM; Location: [facility] OR; Service: Podiatry ANKLE SURGERY Left BYPASS PERONEAL FEMORAL Right 09/07/2018 Procedure: BYPASS PERONEAL FEMORAL, RIGHT SAPHENOUS VEIN HARVEST, COMPLETION ANGIOGRAM; Surgeon: Mohsen Sarabia MD; Location: [facility] OR; Service: Cardiovascular CARDIAC CATHETERIZATION Left 09/05/2018 Procedure: Angio Lower Extremity; Surgeon: Ben Hahn MD; Location: [facility] VENEREAL DISEASE CONTROL HEAD; Service: Cardiovascular CARDIAC SURGERY 2017 triple bypass EGD N/A 10/10/2018 Procedure: ESOPHAGOGASTRODUODENOSCOPY; Surgeon: Ben Jensen MD; Location: [facility]; Service: Gastroenterology EYE SURGERY Right 2015 [...] data reviewed No results for input(s): PHART, WBC6OSG, PO2ART, W9QSMYST, RESPRATE, TIDALVOL, PEEP, X0HFWFXY in the last 72 hours. Recent Labs 01/18/22210401/19/22 0336 WBC 6.76 5.34 HGB 14.0 12.4* PLT 150 115* Recent Labs 01/18/22210401/18/22211601/19/22 0336 NA 138 -- 141 K 4.2 -- 4.1 CL 103 -- 108 BICARB - BUN 14 14 13 CREATININE 1.10 1.35* [...] and recommend this to be done at [facility] with either Drs. Carson Gallagher or Wagner Moon. Please place referral to either their clinics at discharge. COPD: Suspected diagnosis with significant emphysematous changes noted on CT likely due to occupational exposures. -Recommend Spiriva and as needed albuterol moving forward as well as follow-up in the pulmonary medicine clinic close to home for formal PFTs. 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 Prior Level of Function Level of Wells - Transfers/Ambulation/Mobility: Independent with functional transfers, Independent with household ambulation Level of Wells - ADLs: Independent Subjective Impression - Prior [...] MIDFOOT AMPUTATION; Surgeon: Flynn Mann DPM; Location: [facility] OR; Service: Podiatry ANKLE SURGERY Left BYPASS PERONEAL FEMORAL Right 09/07/2018 Procedure: BYPASS PERONEAL FEMORAL, RIGHT SAPHENOUS VEIN HARVEST, COMPLETION ANGIOGRAM; Surgeon: Mohsen Sarabia MD; Location: [facility] OR; Service: Cardiovascular CARDIAC CATHETERIZATION Left 09/05/2018 Procedure: Angio Lower Extremity; Surgeon: Ben Hahn MD; Location: [facility] VENEREAL DISEASE CONTROL HEAD; Service: Cardiovascular CARDIAC SURGERY 2017 triple bypass EGD N/A 10/10/2018 Procedure: ESOPHAGOGASTRODUODENOSCOPY; Surgeon: Ben Jensen MD; Location: [facility]; Service: Gastroenterology EYE SURGERY Right 2015 FOOT [...] hospital or completion of Physical Therapy Plan. [id number] Note* Sign Off Note - David Christy MD - 01/20/2022 12:38 PM EDT Pulmonary Medicine Sign-Off Medications: Bronchodilators: Recommend initiating Spiriva with PRN Albuterol on dsicharge Home Respiratory Equipment: N/A Follow-up: Imaging: Follow up PET/CT Scan KAJAL in outpatient setting. Please set up at [facility] with Dr Carson Cm or Wagner Moon with referral Pulmonary Function Testing: For diagnosis of COPD Patient with suspicious lung nodule and severe emphysema changes. Also uses Afrin, this should be limited to 2-3 days use at most at a time. Please call with questions David Christy M.D. Internal Medicine PGY-3 Pager: [phone] [facility] Work Phone: [phone] Miscellaneous Notes* Sign Off Note - David Christy MD - 01/20/2022 12:38 PM EDT Pulmonary Medicine Sign-Off Medications: Bronchodilators: Recommend initiating Spiriva with PRN Albuterol on dsicharge Home Respiratory Equipment: N/A Follow-up: Imaging: Follow up PET/CT Scan KAJAL in outpatient setting. Please set up at [facility] with Dr Carson Cm or Wagner Moon with referral Pulmonary Function Testing: For diagnosis of COPD Patient with suspicious lung nodule and severe emphysema changes. Also uses Afrin, this should be limited to 2-3 days use at most at a time. Please call with questions David Badawi, M.D. Internal Medicine PGY-3 Pager: [phone] * ED Procedure Note - Mikey Mcguire [...] and Critical Limb consultation. documented in this [id number] Consult note* Carson Banks MD - 01/19/2022 [...] calcified granulomas. -Solitary lung nodule malignancy risk ([place]) score: 17.6% -Recommend PET as an outpatient and follow up with [facility] closer to home. Possible biopsy iffindings persist. [...] Ngoc Banks MD Preliminary Medicine PGY1 Pager: [phone] Reason for Consultation: Suspicious Pulm nodule with [...] dust over the years while working in [employer]. Denies recent weight loss. Notes a few [...] MIDFOOT AMPUTATION; Surgeon: Flynn Mann DPM; Location: [facility] OR; Service: Podiatry ANKLE SURGERY Left BYPASS PERONEAL FEMORAL Right 09/07/2018 Procedure: BYPASS PERONEAL FEMORAL, RIGHT SAPHENOUS VEIN HARVEST, COMPLETION ANGIOGRAM; Surgeon: Mohsen Sarabia MD; Location: [facility] OR; Service: Cardiovascular CARDIAC CATHETERIZATION Left 09/05/2018 Procedure: Angio Lower Extremity; Surgeon: Ben Hahn MD; Location: [facility] VENEREAL DISEASE CONTROL HEAD; Service: Cardiovascular CARDIAC SURGERY 2017 triple bypass EGD N/A 10/10/2018 Procedure: ESOPHAGOGASTRODUODENOSCOPY; Surgeon: Ben Jensen MD; Location: [facility]; Service: Gastroenterology EYE SURGERY Right 2015 [...] data reviewed No results for input(s): PHART, PEC2VWA, PO2ART, V1BEPHQJ, RESPRATE, TIDALVOL, PEEP, N1OOJLPL in the last 72 hours. Recent Labs [...] and recommend this to be done at [facility] with either Drs. Carson Gallagher or [...] and Critical Care Medicine 5:26 PM 01/19/22 [id number] Emergency department Note* Violetta Stuart RN - 01/19/2022 2:35 PM EDT Patient provided with warm blanket and coffee. Denies any further needs at this time, visitor at bedside. [id number] Emergency department Note* Violetta Stuart RN - [...] Med one to write orders for admission [phone]...checkout complete * Amy Ojeda PA-C - 01/18/2022 11:14 PM EDT Images from the original note were not included. ED PROVIDER NOTE [facility] EMERGENCY DEPARTMENT NAME: Tristin Powell AGE: 82 y.o. : 1940 VISIT DATE: 01/18/2022 [facility]: [id number] PCP: Flash Lovelace MD Chief Complaint Patient [...] MIDFOOT AMPUTATION; Surgeon: Flynn Mann DPM; Location: [facility] OR; Service: Podiatry ANKLE SURGERY Left BYPASS PERONEAL FEMORAL Right 09/07/2018 Procedure: BYPASS PERONEAL FEMORAL, RIGHT SAPHENOUS VEIN HARVEST, COMPLETION ANGIOGRAM; Surgeon: Mohsen Sarabia MD; Location: [facility] OR; Service: Cardiovascular CARDIAC CATHETERIZATION Left 09/05/2018 Procedure: Angio Lower Extremity; Surgeon: Ben Hahn MD; Location: [facility] VENEREAL DISEASE CONTROL HEAD; Service: Cardiovascular CARDIAC SURGERY 2017 triple bypass EGD N/A 10/10/2018 Procedure: ESOPHAGOGASTRODUODENOSCOPY; Surgeon: Ben Jensen MD; Location: [facility]; Service: Gastroenterology EYE SURGERY Right 2015 [...] states he's nauseous, chills documented in this [id number] Emergency department Note* Violetta Stuart RN - 01/19/2022 1:15 PM EDT Patient provided with lunch tray. [id number] Emergency department Note* Maude Vallejo RN - 01/19/2022 10:13 AM EDT patient visited at this time. comfort needs addressed. updated on plan of care. MEAL TRAY DELIVERED AT THIS TIME [id number] History and physical note* Rodri Back DO - 01/18/2022 11:54 PM EDT Images from the original note were not included. [facility] History and Physical Note 01/19/22 Tristin Powell 1940 [id number] Assessment/Plan: Tristin Powell is a 82 y.o. male with a history of HTN, CAD, PVD who presented to [facility] 01/18/2022 with progressive left ankle pain, redness, swelling not improved with oral antibiotics. Admit XR non-acute, temp 100.7, CRP 63.5, WBC 6.76, ESR 18. LLE Cellulitis: Per chart, hx MRSA in 2018. 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 Admit temp 100.7. [...] CAD, PVD who presented to [facility] 01/18/2022 with progressive left ankle pain, redness, [...] MIDFOOT AMPUTATION; Surgeon: Flynn Mann DPM; Location: [facility] OR; Service: Podiatry ANKLE SURGERY Left BYPASS PERONEAL FEMORAL Right 09/07/2018 Procedure: BYPASS PERONEAL FEMORAL, RIGHT SAPHENOUS VEIN HARVEST, COMPLETION ANGIOGRAM; Surgeon: Mohsen Sarabia MD; Location: [facility] OR; Service: Cardiovascular CARDIAC CATHETERIZATION Left 09/05/2018 Procedure: Angio Lower Extremity; Surgeon: Ben Hahn MD; Location: [facility] VENEREAL DISEASE CONTROL HEAD; Service: Cardiovascular CARDIAC SURGERY 2017 triple bypass EGD N/A 10/10/2018 Procedure: ESOPHAGOGASTRODUODENOSCOPY; Surgeon: Ben Jensen MD; Location: [facility]; Service: Gastroenterology EYE SURGERY Right 2015 [...] mg/dL -- 107* CALCIUM mg/dL -- 9.2 [id number] History and physical note* Rodri Back DO - 01/18/2022 11:54 PM EDT Images from the original note were not included. [employer] History and Physical Note 01/19/22 Tristin Powell 1940 [id number] Assessment/Plan: Tristin Powell is a 82 y.o. male with a history of HTN, CAD, PVD who presented to [facility] 01/18/2022 with progressive left ankle pain, redness, swelling not improved with oral antibiotics. Admit XR non-acute, temp 100.7, CRP 63.5, WBC 6.76, ESR 18. LLE Cellulitis: Per chart, hx MRSA in 2018. 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 Admit temp 100.7. [...] CAD, PVD who presented to [facility] 01/18/2022 with progressive left ankle pain, redness, [...] MIDFOOT AMPUTATION; Surgeon: Flynn Mann DPM; Location: [facility] OR; Service: Podiatry ANKLE SURGERY Left BYPASS PERONEAL FEMORAL Right 09/07/2018 Procedure: BYPASS PERONEAL FEMORAL, RIGHT SAPHENOUS VEIN HARVEST, COMPLETION ANGIOGRAM; Surgeon: Mohsen Sarabia MD; Location: [facility] OR; Service: Cardiovascular CARDIAC CATHETERIZATION Left 09/05/2018 Procedure: Angio Lower Extremity; Surgeon: Ben Hahn MD; Location: [facility] VENEREAL DISEASE CONTROL HEAD; Service: Cardiovascular CARDIAC SURGERY 2017 triple bypass EGD N/A 10/10/2018 Procedure: ESOPHAGOGASTRODUODENOSCOPY; Surgeon: Ben Jensen MD; Location: [facility]; Service: Gastroenterology EYE SURGERY Right 2015 [...] CALCIUM mg/dL -- 9.2 documented in this [id number] Emergency department Note* Richie Vallecillo - 01/18/2022 11:29 PM EDT Med one to write orders for admission [phone]...checkout complete [id number] Note* ED Procedure Note - Mikey Mcguire MD - 01/18/2022 11:27 PM EDTAssociated Order(s): ECG 12 Lead ECG 12 Lead Date/Time: 01/18/2022 11:27 PM Performed by: Mikey Mcguire MD Authorized by: Mikey Mcguire MD Interpreted by ED attending physician Rhythm: sinus rhythm BPM: 76 Ectopy: PVCs Conduction: conduction normal ST Segments: ST segments normal T Waves: T waves normal Clinical impression: non-specific ECG [facility] Work Phone: [phone] Physician Emergency department Note* Amy Ojeda PA-C - 01/18/2022 11:14 PM EDT Images from the original note were not included. ED PROVIDER NOTE [facility] EMERGENCY DEPARTMENT NAME: Tristin Powell AGE: 82 y.o. : 1940 VISIT DATE: 01/18/2022 CSN: [id number] PCP: Flash Lovelace MD Chief Complaint Patient [...] MIDFOOT AMPUTATION; Surgeon: Flynn Mann DPM; Location: [facility] OR; Service: Podiatry ANKLE SURGERY Left BYPASS PERONEAL FEMORAL Right 09/07/2018 Procedure: BYPASS PERONEAL FEMORAL, RIGHT SAPHENOUS VEIN HARVEST, COMPLETION ANGIOGRAM; Surgeon: Mohsen Sarabia MD; Location: [facility] OR; Service: Cardiovascular CARDIAC CATHETERIZATION Left 09/05/2018 Procedure: Angio Lower Extremity; Surgeon: Ben Hahn MD; Location: [facility] VENEREAL DISEASE CONTROL HEAD; Service: Cardiovascular CARDIAC SURGERY 2017 triple bypass EGD N/A 10/10/2018 Procedure: ESOPHAGOGASTRODUODENOSCOPY; Surgeon: Ben Jensen MD; Location: [facility]; Service: Gastroenterology EYE SURGERY Right 2015 [...] Historical Med Amy Ojeda PA-C 01/19/22 0028 [facility] Work Phone: [phone] Note* ED Attestation Note - Mikey Mcguire [...] for IV antibiotics and Critical Limb consultation. [id number] Emergency department Triage note* Gregory Alvarado LPN - 01/18/2022 8:37 PM EDT Pt arrives to the ED with c/o redness and swelling to left amputated foot. Redness and swelling noted a couple days ago. Pt states he's nauseous, chills [id number] History of Present illness Narrative* Katie Anna RN - 01/18/2022 4:21 PM EDT Received progress note and images of left lower extremity dated 01-18-[address] Flash Webb. See scanned document in Media. documented in this [id number] History of Present illness Narrative* Светлана Briones [...] 9:08 AM Patient: Tristin Powell . MR#: [id number] : 1940 Age: 82 y.o. Referring Physician: Self, Self Insurance: Payor: MEDICARE [employer] PPO / Plan: MEDICARE [employer] HMO PPO [...] 9:08 AM Patient: Tristin Powell . MR#: [id number] : 1940 Age: 82 y.o. Referring Physician: [...] has No Known Allergies. documented in this [facility]05-03-2022 History of Present illness Narrative* Ileana [...] Arthritis Avascular necrosis of bone of hip ([facility]) Claudication ([facility]) Herpes zoster Hyperlipidemia Hypertension Prostate cancer (HCC) Vascular disease Past Medical History Pertinent Negatives: Diagnosis Date Noted Anemia 10/08/2018 Angina pectoris ([facility]) 10/08/2018 Anxiety 10/08/2018 Arrhythmia 10/08/2018 Asthma 10/08/2018 Atrial fibrillation ([facility]) 10/08/2018 Back pain 10/08/2018 Bladder problem 10/08/2018 Bleeding disorder ([facility]) 10/08/2018 Cataract 10/08/2018 CHF (congestive heart failure) (HCC) 10/08/2018 Cholelithiasis 10/08/2018 Chronic kidney disease (CKD) 10/08/2018 Chronic pain disorder 10/08/2018 Clostridium difficile infection 10/08/2018 Complication of anesthesia 10/08/2018 COPD (chronic obstructive pulmonary disease) ([facility]) 10/08/2018 Crohn's disease ([facility]) 10/08/2018 Deep vein thrombosis ([facility]) 10/08/2018 Dermatitis 10/08/2018 Diabetes mellitus type I ([facility]) 10/08/2018 Diabetes mellitus, type 2 (HCC) 10/08/2018 Diverticulosis 10/08/2018 Emphysema of lung ([facility]) 10/08/2018 Fibromyalgia, primary 10/08/2018 Hard to intubate 10/08/2018 Headache 10/08/2018 HIV disease ([facility]) 10/08/2018 Infectious viral hepatitis 10/08/2018 MRSA (methicillin resistant Staphylococcus aureus) 10/08/2018 Neck pain 10/08/2018 Nephrolithiasis 10/08/2018 Osteoporosis 10/08/2018 Overactive bladder 10/08/2018 PAD (peripheral artery disease) ([facility]) 10/08/2018 Parkinson's disease ([facility]) 10/08/2018 Peripheral neuropathy 10/08/2018 Postoperative retention of urine 10/08/2018 Problem with Qureshi catheter ([facility]) 10/08/2018 Rheumatoid arthritis ([facility]) 10/08/2018 Seizures ([facility]) 10/08/2018 Sleep apnea, obstructive 10/08/2018 Stroke ([facility]) 10/08/2018 Thrombophlebitis 10/08/2018 TIA (transient ischemic attack) [...] Ileana Kang DO 12/28/2021 documented in this [id number] History of Present illness Narrative* Hill Marquez, CHUTE PULLER - 11/24/2021 9:50 AM EDT Ortho Nurse - Established Patient Intake Room#: 2 4 month Right SHANNON D/A, about 10 days ago for no reason he started having radiating pain upto an 8, no pain when sitting, was doing fine before this Date: 11/24/2021 9:46 AM Patient: Tristin Powell Sr. MR#: [id number] : 1940 Age: 81 y.o. Referring Physician: [...] Laterality: N/A; Surgeon: Isaias Vogt MD; Location: [facility] CARDIAC CATH/EP LAB ATHERECTOMY PERIPHERAL N/A 08/09/2018 Laterality: N/A; Surgeon: Isaias Vogt MD; Location: [facility] CARDIAC CATH/EP LAB CORONARY STENT PLACEMENT [...] 9:46 AM Patient: Tristin Powell . MR#: [id number] : 1940 Age: 81 y.o. Referring Physician: [...] Laterality: Right; Surgeon: Dashawn Silvestre MD; Location: [facility] OR PERIPHERAL ANGIOPLASTY N/A 08/09/2018 Laterality: N/A; Surgeon: Isaias Vogt MD; Location: [facility] CARDIAC CATH/EP LAB PERIPHERAL STENT PLACEMENT N/A 08/09/2018 Laterality: N/A; Surgeon: Isaias Vogt MD; Location: [facility] CARDIAC CATH/EP LAB ATHERECTOMY PERIPHERAL N/A 08/09/2018 Laterality: N/A; Surgeon: Isaias Vogt MD; Location: [facility] CARDIAC CATH/EP LAB CORONARY STENT PLACEMENT 2007 [...] has No Known Allergies. [facility] + Plan note No data available for this section [facility] evaluation + Plan note Future Appointments Appointment Date:12/26/2023 01:00:00 PM Scheduled Provider:BRENNA MOSQUERA PA-C Location:[facility] Appointment Type:URO Office Visit Diagnostic Tests Pending * PSA Total 12/20/22 [facility] evaluation note* Diagnosis Bilateral carotid artery stenosis- Primary Occlusion and stenosis of carotid artery without mention of cerebral infarction PAD (peripheral artery disease) (HCC) Unspecified peripheral vascular disease [facility]* Diagnosis PAD (peripheral artery disease) (HCC)- Primary Unspecified peripheral vascular disease [facility] Diagnosis Pain in prosthetic joint, subsequent encounter- Primary [facility]* Diagnosis Actinic keratosis- Primary SK (seborrheic keratosis) Other seborrheic keratosis Inflamed seborrheic keratosis Skin tenderness Disturbance of skin sensation Xerosis cutis Other specified disease of sebaceous glands [facility] Diagnosis Hx of total hip arthroplasty, right- Primary [facility] Diagnosis Cellulitis- Primary Cellulitis and [...] Hypertension, unspecified type documented [facility] noteNo assessment information availableOur [facility] Work Phone: Evaluation note* Diagnosis Bilateral carotid artery stenosis- Primary Occlusion and stenosis of carotid artery without mention of cerebral infarction [facility]* Diagnosis Hx of total hip arthroplasty, right- Primary [facility] Diagnosis Chronic obstructive pulmonary disease, [...] circulatory system disorder [facility] Diagnosis Hx of total hip arthroplasty, right- Primary [facility]* Diagnosis Phantom limb pain (CMS/HCC)- [...] spondylosis without myelopathy documented [facility]* Diagnosis Ischemic foot- Primary PAD (peripheral artery disease) (HCC) Unspecified peripheral vascular disease Critical lower limb ischemia (HCC) Unspecified circulatory system disorder Critical lower limb ischemia (HCC) Unspecified circulatory system disorder Coronary artery disease involving coronary bypass graft of [place] heart without angina pectoris Hypercholesteremia Pure hypercholesterolemia [...] peripheral vascular disease PVD (peripheral vascular disease) ([facility])- Primary Unspecified peripheral vascular disease [facility] Diagnosis Phantom limb pain [...] spondylosis without myelopathy documented [facility]* Diagnosis Community acquired pneumonia of left lung, unspecified part of lung- Primary COPD exacerbation (HCC) Obstructive chronic bronchitis with exacerbation documented in this encounter [facility] Phone: evaluation note* Diagnosis Community acquired pneumonia of left lung, unspecified part of lung- Primary COPD exacerbation (HCC) Obstructive chronic bronchitis with exacerbation documented in this encounter [facility] Phone: evaluation note* Diagnosis Phantom limb pain [...] Phantom limb (syndrome) documented in this encounter [facility] HealthcareEvaluation note* Diagnosis Medicare annual wellness [...] of cardiac valve disease unspecified Atherosclerosis of alatna coronary artery of [place] heart without angina pectoris (CMS/HCC) Benign essential [...] amputation of left foot (CMS/HCC) Atherosclerosis of [place] arteries of extremities with rest pain, unspecified [...] spondylosis without myelopathy documented in this encounter [facility]* Diagnosis Phantom limb pain [...] Chronic diastolic (congestive) heart failure Atherosclerosis of [place] arteries of extremities with rest pain, unspecified [...] disease (HCC) (CMS/HCC) documented in this encounter [facility]* Diagnosis Phantom limb pain [...] Chronic diastolic (congestive) heart failure Atherosclerosis of [place] arteries of extremities with rest pain, unspecified [...] spondylosis without myelopathy documented in this encounter [facility] note* Diagnosis Phantom limb pain [...] Chronic diastolic (congestive) heart failure Atherosclerosis of [place] arteries of extremities with rest pain, unspecified [...] spondylosis without myelopathy documented in this encounter [facility] note* Diagnosis Phantom limb pain [...] Chronic diastolic (congestive) heart failure Atherosclerosis of [place] arteries of extremities with rest pain, unspecified [...] diastolic (congestive) heart failure (HCC) Atherosclerosis of [place] arteries of extremities with rest pain, unspecified [...] spondylosis without myelopathy [facility] Diagnosis Ischemic foot- Primary PAD (peripheral artery disease) (HCC) Unspecified peripheral vascular disease Critical lower limb ischemia (HCC) Unspecified circulatory system disorder Critical lower limb ischemia (HCC) Unspecified circulatory system disorder Coronary artery disease involving coronary bypass graft of [place] heart without angina pectoris Hypercholesteremia Pure hypercholesterolemia [...] peripheral vascular disease [facility]* Diagnosis Ischemic foot- Primary PAD (peripheral artery disease) (HCC) Unspecified peripheral vascular disease Critical lower limb ischemia (HCC) Unspecified circulatory system disorder Critical lower limb ischemia (HCC) Unspecified circulatory system disorder Coronary artery disease involving coronary bypass graft of [place] heart without angina pectoris Hypercholesteremia Pure hypercholesterolemia [...] lower extremity- Primary [facility]* Diagnosis Ischemic foot- Primary PAD (peripheral [...] left, initial encounter PAD (peripheral artery disease) ([facility])- Primary Unspecified peripheral vascular disease Claudication Unspecified peripheral vascular disease Right leg pain Pain in soft tissues of limb Peripheral artery disease PAD (peripheral artery disease) ([facility]) Unspecified peripheral vascular disease Carotid stenosis, asymptomatic, [...] artery disease involving coronary bypass graft of alatna heart without angina pectoris Critical lower limb ischemia (HCC) Unspecified circulatory system disorder Critical lower limb ischemia (HCC) Unspecified circulatory system disorder Coronary artery disease involving coronary bypass graft of [place] heart without angina pectoris Carotid stenosis, asymptomatic, bilateral [facility]* Diagnosis Phantom limb pain (HCC)- Primary [...] Heartburn 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[facility]) Lumbosacral spondylosis without myelopathy Chronic obstructive pulmonary disease, unspecified COPD type ([facility]) Acute cystitis without hematuria- Primary Seasonal allergic rhinitis due to pollen Other thrombophilia ([facility]) Malignant neoplasm of prostate (HCC) Malignant [...] diastolic (congestive) heart failure (HCC) Atherosclerosis of al[place] arteries of extremities with rest pain, unspecified [...] prostate Urinary hesitancy documented in this encounter [facility]* Diagnosis Ischemic foot- Primary [...] artery disease involving coronary bypass graft of al[place] heart without angina pectoris Critical lower limb ischemia (HCC) Unspecified circulatory system disorder Critical lower limb ischemia (HCC) Unspecified circulatory system disorder Coronary artery disease involving coronary bypass graft of [place] heart without angina pectoris Carotid stenosis, asymptomatic, bilateral Critical lower limb ischemia (HCC)- Primary Unspecified circulatory system disorder [facility]* Diagnosis Phantom limb pain (HCC)- Primary [...] diastolic (congestive) heart failure (HCC) Atherosclerosis of alatna arteries of extremities with rest pain, unspecified [...] diastolic (congestive) heart failure (HCC) Atherosclerosis of [place] arteries of extremities with rest pain, unspecified [...] type (HCC) documented in this encounter [facility] [...] diastolic (congestive) heart failure (HCC) Atherosclerosis of al[place] arteries of extremities with rest pain, unspecified [...] artery disease involving coronary bypass graft of al[place] heart without angina pectoris Critical lower limb ischemia (HCC) Unspecified circulatory system disorder Critical lower limb ischemia (HCC) Unspecified circulatory system disorder Coronary artery disease involving coronary bypass graft of [place] heart without angina pectoris Carotid stenosis, asymptomatic, bilateral Critical lower limb ischemia (HCC)- Primary Unspecified circulatory system disorder [facility] Diagnosis Phantom limb pain (HCC)- Primary [...] diastolic (congestive) heart failure (HCC) Atherosclerosis of alatna arteries of extremities with rest pain, unspecified [...] unspecified location- Primary documented in this encounter [facility]Evaluation [facility]* Diagnosis Phantom limb pain [...] diastolic (congestive) heart failure (HCC) Atherosclerosis of al[place] arteries of extremities with rest pain, unspecified [...] hypertension, benign documented [facility]* [...] diastolic (congestive) heart failure (HCC) Atherosclerosis of [place] arteries of extremities with rest pain, unspecified [...] Osteomyelitis of right foot, unspecified type (HCC) Hemoptysis- Primary Rhonchi Abnormal chest sounds documented in this encounter [facility]* Diagnosis Claudication Peripheral vascular disease, unspecified Claudication- Primary Peripheral vascular disease, unspecified Pure hypercholesterolemia Hemoptysis- Primary Hemoptysis, unspecified Community acquired pneumonia, unspecified laterality Rhinovirus infection Rhinovirus infection in conditions classified elsewhere and of unspecified site Hemoptysis Hemoptysis, unspecified Chronic obstructive pulmonary disease with acute exacerbation Obstructive chronic bronchitis with exacerbation PAD (peripheral artery disease) Unspecified disorders of arteries and arterioles Ulcer of toe, unspecified laterality, unspecified ulcer stage Anemia (Low HGB) Anemia, unspecified Bronchitis Bronchitis, not specified as acute or chronic [facility] Diagnosis Claudication Peripheral vascular disease, unspecified Claudication- Primary Peripheral vascular disease, unspecified Pure hypercholesterolemia Hemoptysis- Primary Hemoptysis, unspecified Community acquired pneumonia, unspecified laterality Rhinovirus infection Rhinovirus infection in conditions classified elsewhere and of unspecified site Hemoptysis Hemoptysis, unspecified Chronic obstructive pulmonary disease with acute exacerbation Obstructive chronic bronchitis with exacerbation PAD (peripheral artery disease) Unspecified disorders of arteries and arterioles Ulcer of toe, unspecified laterality, unspecified ulcer stage Anemia (Low HGB) Anemia, unspecified Bronchitis Bronchitis, not specified as acute or chronic [facility] N[facility] - Reported* Type Description Date Medical History PAD Medical History hypertension Medical History This 82-year-old mal e has a long history of peripheral vascular occlusive disease but has never been seen by us in the past. In 2019 he presented with limb threatening ischemia of his left leg and was initially treated in [place]. When he was offered left above-knee amputation he got a second opinion in [place] and had a bypass on his left [...] LEFT METARSAL AMPUTATION Hospitalization History See Above [facility] Other Hospital Discharge instructions No data available for this section [facility] Hospital Discharge instructions* Attachments The following attachments cannot be sent through Care Everywhere. * Pneumonia ([place]) documented [facility] Work Phone: Hospital Discharge instructions* Attachments The following attachments cannot be sent through Care Everywhere. * Pneumonia ([place]) documented in this encounterWBanjo Work Phone: Hospital Discharge instructions Additional Instructions [...] 24 hours. CALL [name at #] OR [facility] AT [phone]: -If excessive bleeding should occur from the [...] Metformin, PrandiMet, Riomet.] FOLLOW UP/OTHER INSTRUCTIONS [ ][facility] Work Phone: Hospital Discharge instructions Additional Instructions Full code Change dressing daily: *right great toe- allow vashe moistened gauze soak on wound bed for 5 min., wipe free loose debris, rinse with saline, apply Santyl to wound bed, top with 2x2s and secure with conforming [facility] Work Phone: Progress note No data available for this section [facility] reason for referral (narrative)No reason for referral information availableOhiohealth [facility] Work Phone: Reason for visit Narrative* Auth/Cert Specialty Diagnoses / Procedures Referred By Jason christie Referred To Contact Diagnoses Bronchitis Vivienne Padilla MD [address] [place] [address] Phone: tel: fax: [facility] [address] [place] [address] Referral ID Status Reason Start Date Expiration Date Visits Re quested Visits Authorized [id number] 1 1 [facility] Summary Purpose Family History Relationship Condition Age [...] Documents on File Type Date Recorded Patient Complaint Inspector Expl anation Advance Directives and Living Will 03/18/2019 9:27 AM LW only Power of Real Estate Analyst 10/13/2018 9:03 PM RECEI SKIP 10/13/2018 Documents on File Type Date Recorded Patient Complaint Inspector Expl anation Advance Directives and Living Will 03/18/2019 9:27 AM LW only Power of Real Estate Analyst 10/13/2018 9:03 PM RECEI SKIP 10/13/2018 Documents on File Type Date Recorded Patient Complaint Inspector Expl anation Advance Directives and Living Will 10/21/2019 1:25 PM LW only Power of Real Estate Analyst 10/13/2018 9:03 PM RECEI SKIP 10/13/2018 Documents on File Type Date Recorded Patient Complaint Inspector Expl anation Advance Directives and Living Will 10/21/2019 1:25 PM LW only Power of Real Estate Analyst 10/13/2018 9:03 PM RECEI SKIP 10/13/2018 Documents on File Type Date Recorded Patient Complaint Inspector Expl anation Advance Directives and Living Will 03/13/2019 10:08 AM LW only Power of Real Estate Analyst 10/13/2018 9:03 PM RECEI SKIP 10/13/2018 Documents on File Type Date Recorded Patient Complaint Inspector Expl anation Advance Directives and Living Will 03/13/2019 10:08 AM LW only Power of Real Estate Analyst 10/13/2018 9:03 PM RECEI SKIP 10/13/2018 Latest Code Status on File Code Status Date Activated Date Inactivated Comments Full Code 07/15/2021 2:40 PM Full Code 09/03/2018 11:29 AM 07/15/2021 2:40 PM Full Code 09/01/2011 7:48 AM 09/04/2011 4:13 PM Documents on File Type Date Recorded Patient Complaint Inspector Expl anation Power of Real Estate Analyst 10/13/2018 9:03 PM RECEI SKIP 10/13/2018 Documents on File Type Date Recorded Patient Complaint Inspector Expl anation Power of Real Estate Analyst 10/13/2018 9:03 PM RECEI SKIP 10/13/2018 Latest [...] Comments 03/14/2025 5:44 PM 03/21/2025 8:44 PM Documents on File Type Date Recorded [facility] of Real Estate Analyst 10/08/2018 Date Activated Date Inactivated Comments 05/09/2025 4:40 AM Date Activated Date Inactivated Comments 07/15/2021 2:40 PM 05/09/2025 4:40 AM Date Activated Date Inactivated Comments 09/03/2018 11:29 AM 07/15/2021 2:40 PM Date Activated Date Inactivated Comments 09/01/2011 7:48 AM 09/04/2011 4:13 PM Healthcare Agents on File Name Relationship Healthcare Agent Relationshi p Communication Michael Marshall Child Health Care Agent Healthcare Agents on File Name Relationship Healthcare Agent Relationshi p Communication Michael Marshall Child Health Care Agent Reason for Referral Status Reason Specialty Diagnoses / Procedures Referred By Contact Referred To Contact Closed Home Health Services Diagnoses Ischemic foot Critical lower limb ischemia Rojelio Woody MD [address] [facility] [address] [place] [address] Status Reason Specialty Diagnoses / Procedures Referred By Contact Referred To Contact Pending Review Cardiology Diagnoses 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) S/P bypass graft of extremity Procedures US Doppler ankle/brachial index Segmental doppler lower extremity arterial Mohsen Sarabia MD [address] [place] [address] [address] [place] [address] Status Reason Specialty Diagnoses / Procedures Referred By Contact Referred To Contact Pending Review Cardiology Diagnoses Bilateral carotid artery stenosis Procedures Carotid Duplex Mohsen Sarabia MD [facility] [address] [place] [address] Status Reason Specialty Diagnoses / Procedures Referred By Contact Referred To Contact Pending Review Cardiology Diagnoses 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) S/P bypass graft of extremity Procedures Ultrasound ankle / brachial indices extremity complete Mohsen Sarabia MD [address] [place] [address] [address] [place] [address] Status Reason Specialty Diagnoses / Procedures Referre d By Contact Referred To Contact Closed Radiology Diagnoses S/P bypass graft of extremity PAD (peripheral artery disease) (HCC) 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) Procedures CT Angiogram Abdominal Aorta With Lower Extremity Mohsen Sarabia MD [address] [place] [address] [address] [place] [address] Status Reason Specialty Diagnoses / Procedures Referred By Contact Referred To Contact Closed Cardiology Diagnoses Bilateral carotid artery stenosis Procedures Carotid Duplex Mohsen Sarabia MD [address] [place] [address] [place] [address] Status Reason Specialty Diagnoses / Procedures Referre d By Contact Referred To Contact Closed Cardiology Diagnoses 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) Procedures Ultrasound ankle / brachial indices extremity complete Mohsen Sarabia MD [address] [place] [address] [address] [place] [address] Status Reason Specialty Diagnoses / Procedures Referred By Contact Referred To Contact Pending Review Cardiology Diagnoses Atherosclerosis of alatna artery of left lower extremity with rest pain (HCC) S/P bypass graft of extremity Procedures Ultrasound duplex arterial leg left Mohsen Sarabia MD [address] [place] [address] [place] [address] Status Reason Specialty Diagnoses / Procedures Referred By Contact Referred To Contact Authorized Cardiology Diagnoses Bilateral carotid artery stenosis Procedures Carotid Duplex Mohsen Sarabia MD [address] [place] [address] [address] [place] [id number] Status Reason Specialty Diagnoses / Procedures Referred By Contact Referred To Contact Authorized Cardiology Diagnoses PAD (peripheral artery disease) (HCC) Procedures Ultrasound ankle / brachial indices extremity complete Mohsen Sarabia MD [address] [place] [address] [place], [place] [phone] Status Reason Specialty Diagnoses / Procedures Referred By Contact Referred To Contact Authorized Cardiology Diagnoses PAD (peripheral artery disease) (HCC) Procedures Ultrasound duplex arterial leg left Mohsen Sarabia MD [address] [place] [address] [place], [place] [id number] Specialty Diagnoses / Procedures Referred By Contac t Referred To Contact Physical Therapy Diagnoses Pain in prosthetic joint, subsequent encounter Dashawn Silvestre MD [address] [place] [address] [facility] [address] [address] Referral ID Status Reason Start Date Expiration Date V isits Requested Visits Authorized [id number] New Request 11/24/2021 12/19/2022 1 1 Specialty Diagnoses / Procedures Referred By Contac t Referred To Contact Diagnoses Pain in prosthetic joint, subsequent encounter Procedures XR HIP WITH PELVIS RIGHT Dashawn Silvestre MD [address] [place] [id number] Referral ID Status Reason Start Date Expiration Date V isits Requested Visits Authorized [id number] New Request 11/19/2021 12/14/2022 1 1 Specialty Diagnoses / Procedures Referred By Contac t Referred To Contact Diagnoses Hx of total hip arthroplasty, right Procedures XR HIP WITH PELVIS RIGHT Dashawn Silvestre MD [address] [place] [phone] Referral ID Status Reason Start Date Expiration Date V isits Requested Visits Authorized [id number] New Request 01/05/2022 01/30/2023 1 1 Specialty Diagnoses / Procedures Referred By Contac t Referred To Contact Pulmonary Disease / Pulmonology Diagnoses Pulmonary nodule Muna Otto MD [facility] [address] [place] [address] Carson Gallagher MD [address] [place] [id number] Referral ID Status Reason Start Date Expiration Date Visits Requested Visits Authorized [id number] Pending Review Specialty Services Required/Lucia gonzalez's Best Interest 01/20/2022 01/20/2023 1 1 Specialty Diagnoses / Procedures Referred By Contac t Referred To Contact Radiology Diagnoses Pulmonary nodule Procedures CT Chest Without Contrast Wagner Moon MD [address] [place] [address] Referral ID Status Reason Start Date Expiration Date V isits Requested Visits Authorized [id number] New Request 05/11/2022 05/11/2023 1 1 Specialty Diagnoses / Procedures Referred By Contac t Referred To Contact Cardiology Diagnoses Bilateral carotid artery stenosis Procedures Carotid Duplex Mohsen Sarabia MD [address] [place] [facility] [address] [place] [address] Referral ID Status Reason Start Date Expiration Date V isits Requested Visits Authorized [id number] Authorized 05/25/2022 05/25/2023 1 1 Specialty Diagnoses / Procedures Referred By Contac t Referred To Contact Diagnoses Hx of total hip arthroplasty, right Procedures XR HIP WITH PELVIS RIGHT Scar Ortega, AGRICULTURE SPECIALIST-PLUMBER SUPERVISOR [address] [place] [address] Referral ID Status Reason Start Date Expiration Date V isits Requested Visits Authorized [id number] New Request 07/06/2022 07/31/2023 1 1 Specialty Diagnoses / Procedures Referred By Contac t Referred To Contact Radiology Diagnoses Community acquired pneumonia of left lower lobe of lung Procedures CT Chest Without Contrast Jose Escalona, KAMARI [address] [place] [address] Referral ID Status Reason Start Date Expiration Date V isits Requested Visits Authorized [id number] New Request 11/08/2022 11/08/2023 1 1 Specialty Diagnoses / Procedures Referred By Contac t Referred To Contact Cardiology Diagnoses PAD (peripheral artery disease) (HCC) Procedures US Duplex Bypass Graft Left LE Mohsen Sarabia MD [address] [facility] [address] [place] [address] Referral ID Status Reason Start Date Expiration Date V isits Requested Visits Authorized [id number] Authorized 05/16/2023 05/15/2024 1 1 Specialty Diagnoses / Procedures Referred By Contac t Referred To Contact Cardiology Diagnoses PAD (peripheral artery disease) (HCC) Procedures Ultrasound ankle / brachial indices extremity complete Mohsen Sarabia MD [address] [facility] [facility] [address] [place] [address] Referral ID Status Reason Start Date Expiration Date V isits Requested Visits Authorized [id number] Authorized 05/16/2023 05/15/2024 1 1 Referral ID Status Reason Start Date Expiration Date V isits Requested Visits Authorized [id number] New Request 08/01/2023 08/25/2024 1 1 Specialty Diagnoses / Procedures Referred By Contac t Referred To Contact Diagnoses Seasonal allergic rhinitis due to pollen Zoë King, PA [address] [facility] [address] [place] [address] Referral ID Status Reason Start Date Expiration Date V isits Requested Visits Authorized [id number] Pending Review 05/21/2024 11/17/2024 1 1 Hospital Course Note CLINICAL SUMMARY Please take this summary document to your follow up appointments. [facility] 11/29/19 11:09 [address] [place]. [address] PATIENT INFORMATION Name: TRISTIN POWELL Address: [address] [address] Age: 79 Years Phone: [phone] : 1940 12:00 MRN: ([facility])-[id number] Sex: Male Race: White Ethnicity: Not Hispan/Lat Admitted From: Clinic or [facility] Medical Service: Orthopedic Surgery Nurse Unit/Bed: (CO) 2N 0208-01 Admit Date: 11/28/2019 05:01 PCP: [place] DIAZ , Flash Arteaga PHYSICIANS INVOLVED WITH CARE Attending Physicians: Ramana Cason MD - Orthopaedic Surg Admitting Physician: Ramana Cason MD - Orthopaedic Surg Primary Care Physician:[place] DIAZ , Flash Arteaga,[facility], - Consults: IWONA Wren - [...] your doctor if you can take an lkad-ktd-dhdzowu medicine. If you think your pain medicine [...] Log into your personal health record on [email or web address] and enter H742 in the Education box to learn more about Femoral-Tibial Bypass Surgery: What to Expect at Home. Current as of: March 18, 2018 Content Version: 11.9 5681-6868 [employer] Care instructions adapted under license by your healthcare professional. If you have questions about a medical condition or this instruction, always ask your healthcare professional. [employer] disclaims any warranty or liability for your use of this information. * Attachments The following attachments cannot be sent through Care Everywhere. * Angiogram: General: Post-op (Malian) in this encounter* Discharge Instr - Other Orders* Kristi Grossman RN - 10/12/2018 6:09 PM EST Printed MAR sent to facility to show last admin times for lovenox and percocet. * Discharge Instr - Care Coordination* Rubi Dominguez LSW - 10/05/2018 6:46 AM EST [facility] [place] [facility] P: [phone] F: [phone] * Additional Instructions* Gilbert Guerra DPM - [...] drive, operate heavy machinery, ride motorcycles or [employer] s, drink alcohol, or take other medication [...] through Care Everywhere. * Foot: Amputation: Post-op (Malian) in this encounter History of Present Illness * Esau Alejandro MD - 09/13/2018 9:03 AM EST VASCULAR SURGERY PROGRESS NOTE 09/13/18 Patient Name: Tristin Powell : 1940 MR #: [id number] Admit Date: 1070905 Assessment and Plan: Tristin Powell is a 78 y.o. male with a PMH of PVD s/p LLE angio with stent placement 08/09, prostatecancer, PVD, CAD, HTN and a PSH of L ankle ORIF and thriple CABG in october 2016 with L saphenous vein harvested who presented to [facility] 09/04/2018 as a transfer from [place] for second opinion regarding left lower extremity [...] Final Result Stable chest. No acute disease. [facility] Workstation ID: [id number] Saphenous vein mapping, limited Final Result Cardiac Catheterization Final Result Ultrasound duplex arterial leg left Final Result XR Comparison Import Final Result Us Doppler Ankle/brachial Index Result Date: 09/10/2018 Non-Invasive Vascular Patient: SHERRY Bazan [facility] Rec#: [id number] (Age): 1940(78y) Study Date: 09/10/2018 Room#: 8506 Type: Inpatient Sex: M Reading: [place] Reading: Ben Hahn MD, RPVI Referring: Esau Alejandro her: Andre Madrid RDCS/RVT Procedure Info: 15042 Study Quality: Lower Arterial Doppler: adequate __ [...] Esau Alejandro MD General Surgery PGY-1 Pager [phone] *After 5pm, or on weekends, page [phone]* * Rojelio Woody MD - 09/13/2018 8:52 AM EST [facility] Inpatient Progress Note 09/13/2018 Tristin Powell 1940 [id number] Assessment/Plan: Tristin Powell is a 78 y.o. male with a history of PVD s/p LLE angio with stent placement 08/09, prostate cancer, PVD, CAD, HTN who presented to [facility] 09/04/2018 as a transfer from [place] for second opinion regarding left lower extremity pain and discoloration that was present two days prior to admit there on 08/30/18. On admit his exam was notable for cool mottled left foot. He was admitted for further work up. 1. Critical LLE Ischemia: Underwent LLE Popliteal stent 08/09/18 in [place], discharged on ASA and xarelto. Returned with [...] from last 7 days Lab Units 09/13/18 03509/12/18 1108 09/11/18 0738 SODIUM mmol/L 133* 129* 131* POTASSIUM mmol/L 4.0 4.7 4.8 CHLORIDE mmol/L 101 97* 95* BICARB mmol/L 24 26 26 BUN mg/dL 12 12 11 CREATININE mg/dL 0.56* 0.78* 0.65* EGFR mL/min/1.73 m2 98 86 93 GLUCOSE mg/dL 117* 142* 114* CALCIUM mg/dL 8.9 8.6 8.9 Results from last 7 days Lab Units 09/13/18 03509/12/18110709/11/18 0738 INR 1.2* 1.2* 1.2* * Jagruti [...] Stand Pivot Transfers: Mod, Two person assist Financial Reserve Clerk: Wheeled walker, 2 people, Gait belt Skilled [...] medications Prior Level of Function Level of Wells: Independent with ADLs and functional transfers, Independent with homemaking with ambulation Lives With: Alone 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 PAD (peripheral artery disease) ([facility]) PERIPHERAL VASCULAR DISEASE 3. Critical lower limb ischemia CRITICAL LOWER LIMB ISCHEMIA Patient Active Problem List Diagnosis SNOMED CT(R) Critical lower limb ischemia CRITICAL LOWER LIMB ISCHEMIA Coronary artery disease involving coronary bypass graft of al[place]na heart without angina pectoris ARTERIOSCLEROSIS OF CORONARY [...] SADIA heparin (porcine) 5,000 Units Subcutaneous Q8H [facility] metoprolol succinate 50 mg Oral Daily naloxegol [...] No Discharge Readiness Expected Discharge Date: 09/13/18 [facility] Disposition D/C Disposition: Home Health Care Services Related to Current Admission?: Yes Agency/Destination[facility] Needs : Home health care Met with pt's dtr to discuss dschg plan. They wish to have referral sent to [facility]. Sent [facility] for [facility], PT, OT. Sent referral to [facility]. Notified [facility] of referral. Updated AVS. * Rojelio Woody MD - 09/12/2018 11:37 AM EST [employer] Inpatient Progress Note 09/12/2018 Tristin Powell 1940 [id number] Assessment/Plan: Tristin Powell is a 78 y.o. male with a history of PVD s/p LLE angio with stent placement 08/09, prostate cancer, PVD, CAD, HTN who presented to [facility] 09/04/2018 as a transfer from [place] for second opinion regarding left lower extremity pain and discoloration that was present two days prior to admit there on 08/30/18. On admit his exam was notable for cool mottled left foot. He was admitted for further work up. 1. Critical LLE Ischemia: Underwent LLE Popliteal stent 08/09/18 in [place], discharged on ASA and xarelto. Returned with [...] gabapentin 400 mg Oral Q8H [facility] heparin (porcine) 5,000 Units Subcutaneous Q8H [facility] metoprolol succinate 50 mg Oral Daily naloxegol [...] Estimated Energy Needs Total Energy Estimated Needs: 5458-1005 kcal Method for Estimating Needs: MSJ + 20% Total Protein Estimated Needs: 88-106 g Method for Estimating Needs: 1-1.2 g/kg IBW (BMI 24.9) * Esau Alejandro MD - 09/12/2018 9:17 AM EST VASCULAR SURGERY PROGRESS NOTE 09/12/18 Patient Name: Tristin Powell : 1940 MR #: [id number] Admit Date: 1070905 Assessment and Plan: Tristin Powell is a 78 y.o. male with a PMH of PVD s/p LLE angio with stent placement 08/09, prostatecancer, PVD, CAD, HTN and a PSH of L ankle ORIF and thriple CABG in october 2016 with L saphenous vein harvested who presented to [facility] 09/04/2018 as a transfer from [place] for second opinion regarding left lower extremity [...] Final Result Stable chest. No acute disease. [facility] Workstation ID: [id number] Saphenous vein mapping, limited Final Result Cardiac Catheterization Final Result Ultrasound duplex arterial leg left Final Result XR Comparison Import Final Result Us Doppler Ankle/brachial Index Result Date: 09/10/2018 Non-Invasive Vascular Patient: SHERRY Bazan [facility] Rec#: [id number] (Age): 1940(78y) Study Date: 09/10/2018 Room#: 8506 Type: Inpatient Sex: M Reading: [place] Reading: Ben Hahn MD, RPVI Referring: Esau Alejandro her: Andre Madrid RDCS/RVT Procedure Info: [id number] Study Quality: Lower Arterial Doppler: adequate __ [...] Esau Alejandro MD General Surgery PGY-1 Pager [phone] *After 5pm, or on weekends, page [phone]* * Maranda Meléndez, PLUMBER SUPERVISOR - 09/11/2018 3:45 PM EST Progress Note: [facility] PAIN SERVICE Date: 09/11/2018 Patient name: Tristin [...] call with questions -Presented to [facility] 09/04/2018 as a transfer from [place] for second opinion regarding left lower extremity [...] on hospital day 7 as transfer from [place] for second opinion for LLE pain and [...] artery disease involving coronary bypass graft of al[place]na heart without angina pectoris ARTERIOSCLEROSIS OF CORONARY [...] 7 days Lab Units 09/11/18 0738 09/10/18 2007 09/10/18 0610 09/09/18 0746 09/07/18 1431 09/07/18 0758 [...] Woody MD - 09/11/2018 1:53 PM EST [facility] Inpatient Progress Note 09/11/2018 Tristin Powell 1940 [id number] Assessment/Plan: Tristin Powell is a 78 y.o. male with a history of PVD s/p LLE angio with stent placement 08/09, prostate cancer, PVD, CAD, HTN who presented to [facility] 09/04/2018 as a transfer from [place] for second opinion regarding left lower extremity pain and discoloration that was present two days prior to admit there on 08/30/18. On admit his exam was notable for cool mottled left foot. He was admitted for further work up. Labs prior to transfer notable for Cr 0.7. 1. Critical LLE Ischemia: s/p LLE angiogram 08/09/18 with popliteal balooning and stent in [place], Discharged on ASA and xarelto. Returned to the [facility] with worsening pain and discoloration of [...] at bedside 09/11/18 Subjective: New patient to pr, reviewed chart, discussed case with nurse. Patient [...] from last 7 days Lab Units 09/11/18 0709/10/18200609/10/18609 WBC K/mcL 7.28 7.13 7.34 HGB g/dL 8.1* 7.6* 7.5* HCT % 24.4* 22.2* 22.0* PLT K/mcL 249 246 234 Results from last 7 days Lab Units 09/11/18 0738 09/10/1860909/09/18 0746 SODIUM mmol/L 131* 134* 135 POTASSIUM mmol/L 4.8 4.6 4.3 CHLORIDE mmol/L 95* 99 99 BICARB mmol/L 26 27 28 BUN mg/dL 11 12 13 CREATININE mg/dL 0.65* 0.67* 0.71* EGFR mL/min/1.73 m2 93 91 89 GLUCOSE mg/dL 114* 116* 111* CALCIUM mg/dL 8.9 8.9 8.9 Results from last 7 days Lab Units 09/11/18 0738 09/10/18 0609/09/18 0746 INR 1.2* 1.2* 1.2* * Esau Alejandro MD - 09/11/2018 10:38 AM EST VASCULAR SURGERY PROGRESS NOTE 09/11/18 Patient Name: Tristin Powell : 1940 MR #: [id number] Admit Date: 1070905 Assessment and Plan: Tristin Powell is a 78 y.o. male with a PMH of PVD s/p LLE angio with stent placement 08/09, prostatecancer, PVD, CAD, HTN and a PSH of L ankle ORIF and thriple CABG in october 2016 with L saphenous vein harvested who presented to [facility] 09/04/2018 as a transfer from [place] for second opinion regarding left lower extremity pain and discoloration Chronic LLE ischemia S/p peroneal femoral bypass 09/07/18 - Regular diet - Rooke boot LLE - ET following, adaptik and gauze EOD - Podiatry following, betadine paint while waitin for demarcation. - Pain and N control - PT/OT, recommending SNF - Consult placed to case management - Discussed with Dr. Cornell MARTINEZ. No new complaints Physical Examination: Vital Signs: [...] Final Result Stable chest. No acute disease. [facility] Workstation ID: [id number] Saphenous vein mapping, limited Final Result Cardiac Catheterization Final Result Ultrasound duplex arterial leg left Final Result XR Comparison Import Final Result Us Doppler Ankle/brachial Index Result Date: 09/10/2018 Non-Invasive Vascular Patient: SHERRY Bazan [facility] Rec#: [id number] (Age): 1940(78y) Study Date: 09/10/2018 Room#: 8506 Type: Inpatient Sex: M Reading: [place] Reading: Ben Hahn MD, RPVI Referring: Esau Alejandro her: Andre Madrid RDCS/RVT Procedure Info: [id number] Study Quality: Lower Arterial Doppler: adequate __ [...] Esau Alejandro MD General Surgery PGY-1 Pager [phone] *After 5pm, or on weekends, page [phone]* Associated attestation - Mohsen Sarabia MD - 09/11/2018 5:05 PM EST Patient seen and examined. I have personally reviewed all pertinent labs, radiological studies and records. I have personally examined the patient and agree with resident/GAME ENGINEER/PA assessment and plan. * Flynn Mann, SHIRLEY - 09/11/2018 8:09 AM EST Patient Name: Tristin Powell MR #: [id number] : 1940 Physicians: Flash Lovelace MD (Family); [...] PLT 246 09/10/2018 No results found for: [id number] results found for: SEDRATE No results found [...] artery disease involving coronary bypass graft of al[place] heart without angina pectoris ARTERIOSCLEROSIS OF CORONARY [...] Center with Dr. Mann at [phone]. Case discussed with Dr. Sarabia. Consider home going antibiotics for coverage of any residual cellulitis. Clinical area of warmth and erythema could be due to reperfusion, but cannot rule out of residual cellulitis as well. Flynn Mann DPM, FACFAS Electronically signed by the above physician 09/11/18 * Ronnie Warren MD - 09/10/2018 12:04 PM EST Progress Note: [facility] PAIN SERVICE Date: 09/10/2018 Patient name: Tristin [...] call with questions -Presented to [facility] 09/04/2018 as a transfer from [place] for second opinion regarding left lower extremity [...] on hospital day 6 as transfer from [place] for second opinion for LLE pain and [...] artery disease involving coronary bypass graft of alatna heart without angina pectoris ARTERIOSCLEROSIS OF CORONARY [...] 0746 09/08/18 0259 09/07/18 1431 09/07/18 0758 09/06/18 2219 WBC K/mcL 7.34 -- -- 6.48 11.23* [...] Name: Tristin Powell : 1940 MR #: [id number] Admit Date: 1070905 Assessment and Plan: Tristin Powell is a 78 y.o. male with a PMH of PVD s/p LLE angio with stent placement 08/09, prostatecancer, PVD, CAD, HTN and a PSH of L ankle ORIF and thriple CABG in october 2016 with L saphenous vein harvested who presented to [facility] 09/04/2018 as a transfer from [place] for second opinion regarding left lower extremity pain and discoloration Chronic LLE ischemia S/p peroneal femoral bypass 09/07/18 - Regular diet - Rooke boot LLE - ET consult for skin blistering - Pain and N control - PT/OT, OOB, Encourage IS - D/C kiera today - Discussed with Dr. Cornell DAVID. [...] Final Result Stable chest. No acute disease. [facility] Workstation ID: [id number] Saphenous vein mapping, limited [...] Esau Alejandro MD General Surgery PGY-1 Pager [phone] *After 5pm, or on weekends, page [phone]* * Vianca Franco, - 09/10/2018 7:57 AM EST [facility] Inpatient Progress Note 09/10/2018 Tristin Powell 1940 [id number] Assessment/Plan: Tristin Powell is a 78 y.o. male with a history of PVD s/p LLE angio with stent placement 08/09, prostate cancer, PVD, CAD, HTN who presented to [facility] 09/04/2018 as a transfer from [place] for second opinion regarding left lower extremity pain and discoloration that was present two days prior to admit there on 08/30/18. On admit his exam was notable for cool mottled left foot. He was admitted for further work up. Labs prior to transfer notable for Cr 0.7. 1. Critical LLE Ischemia: s/p LLE angiogram 08/09/18 with popliteal balooning and stent in [place], Discharged on ASA and xarelto. Returned to the [facility] with worsening pain and discoloration of [...] Franco DO - 09/09/2018 9:18 AM EST [facility] Inpatient Progress Note 09/09/2018 Tristin Powell 1940 [id number] Assessment/Plan: Tristin Powell is a 78 y.o. male with a history of PVD s/p LLE angio with stent placement 08/09, prostate cancer, PVD, CAD, HTN who presented to [facility] 09/04/2018 as a transfer from [place] for second opinion regarding left lower extremity pain and discoloration that was present two days prior to admit there on 08/30/18. On admit his exam was notable for cool mottled left foot. He was admitted for further work up. Labs prior to transfer notable for Cr 0.7. 1. Critical LLE Ischemia: s/p LLE angiogram 08/09/18 with popliteal balooning and stent in [place], Discharged on ASA and xarelto. Returned to the [facility] with worsening pain and discoloration of [...] Name: Tristin Powell : 1940 MR #: [id number] Admit Date: 1070905 Assessment and Plan: Tristin Powell is a 78 y.o. male with a PMH of PVD s/p LLE angio with stent placement 08/09, prostatecancer, PVD, CAD, HTN and a PSH of L ankle ORIF and thriple CABG in october 2016 with L saphenous vein harvested who presented to [facility] 09/04/2018 as a transfer from [place] for second opinion regarding left lower extremity pain and discoloration Chronic LLE ischemia S/p peroneal femoral bypass 09/07/18 - 2 Days Post-Op - Regular diet - Rooke boot LLE - ET consult for skin blistering - Pain and N control - PT/OT, OOB, Encourage IS - Discussed with Dr. Cornell DAVID. No [...] Final Result Stable chest. No acute disease. [employer] Workstation ID: [id number] Saphenous vein mapping, limited Final Result Cardiac Catheterization Final Result Ultrasound duplex arterial leg left Final Result XR Comparison Import Final Result Xr Chest 1 View Result Date: 09/07/2018 EXAMINATION: AP CHEST HISTORY: Hypoxia. COMPARISON: 08/01/[address] [facility]. 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 Coronary artery stents are visualized. Minimal linear scarring at the lung bases, unchanged. No pneumothorax. No definite pleural ef fusion no new opacities. Stable chest. No acute disease. [employer] Workstation ID: [id number] Xr Fluoroscopy Time Result Date: 09/08/2018 This is an auto finalized result. Please refer to patient chart for further information. Saphenous Vein Mapping, Limited Result Date: 09/06/2018 Non-Invasive Vascular Patient: SHERRY Bazan [facility] Rec#: [id number] (Age): 1940(78y) Study Date: 09/06/2018 Room#: 3386 Type: Inpatient Sex: M Reading: Manuel Leonard MD, RPLUIZA, RVT Referring: ARISTEO Plant Production Manager: Tom Jeffers RDCS RVT Procedure Info: [id number] Study Quality: Lower Vein Map: limited Study [...] further information. Miryam Rincon MD PGY-2 Surgery [phone] After 5pm and on Weekends, please page [phone] (Surgery Ground Crew Chief institution librarian) * Joi Vaughan RN - 09/08/2018 10:53 AM EST Anesthesia [...] Franco DO - 09/08/2018 9:38 AM EST [facility] Inpatient Progress Note 09/08/2018 Tristin Powell 1940 [id number] Assessment/Plan: Tristin Powell is a 78 y.o. male with a history of PVD s/p LLE angio with stent placement 08/09, prostate cancer, PVD, CAD, HTN who presented to [facility] 09/04/2018 as a transfer from [place] for second opinion regarding left lower extremity pain and discoloration that was present two days prior to admit there on 08/30/18. On admit his exam was notable for cool mottled left foot. He was admitted for further work up. Labs prior to transfer notable for Cr 0.7. 1. Critical LLE Ischemia: s/p LLE angiogram 08/09/18 with popliteal balooning and stent in [place], Discharged on ASA and xarelto. Returned to the [facility] with worsening pain and discoloration of [...] Name: Tristin Powell : 1940 MR #: [id number] Admit Date: 1070905 Assessment and Plan: Tristin Powell is a 78 y.o. male with a PMH of PVD s/p LLE angio with stent placement 08/09, prostatecancer, PVD, CAD, HTN and a PSH of L ankle ORIF and thriple CABG in october 2016 with L saphenous vein harvested who presented to [facility] 09/04/2018 as a transfer from [place] for second opinion regarding left lower extremity pain and discoloration Chronic LLE ischemia S/p peroneal femoral bypass 09/07/18 - Patient underwent LLE angiogram with popliteal ballooning and stent 08/09/2018 in [place], sent onaspirin and xarelto - Angiography 09/05/18 showed Infrapopliteal Artery Stenosis Left , severe ASPVD with occluded stent.No reasonable endovascular options. - Diet as tolerated, HLIV - Rooke boot LLE - ET consult for skin blistering - Pain and N control - Continue P/O care - Discussed with Dr. Sarabia Subjective NAEO Physical Examination: Vital Signs: BP 133/62 (BP [...] Final Result Stable chest. No acute disease. [facility] Workstation ID: [id number] Saphenous vein mapping, limited Final Result Cardiac Catheterization Final Result Ultrasound duplex arterial leg left Final Result XR Comparison Import Final Result Cardiac Catheterization Result Date: 09/05/2018 Patient Name: TRISTIN POWELL Date of : 1940 Procedure Date: 09/05/2018 Physician(s): Ben Hahn MD Cath #: [id number] Ref. 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 Dyslipidemia: Yes Hypertension: Yes Pre-OP Diagnosis/Indication: [place] Class/Limb Ischemia: 4 - Ischemic rest pain [...] amputation COMMENTS: No Complications ____ Equipment: Sheath(s) Ludia 5F 10CM PINNACLE SHEATH COOK MEDICAL 6F 45CM .038 FLEXOR CHECKFLO ANSEL1 SHEATH Wire(s) [employer] .035 X 150CM FIXED J WIRE Catheter(s) Accuvant 5F MP TEMPO AQUA CATHETER Other Aisle50 .035 CXI ANGLED SUPPORT CATHETERS SHER VASCULAR [...] HISTORY: Hypoxia. COMPARISON: 08/01/[address] [facility]. 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 Coronary artery stents are visualized. Minimal linear scarring at the lung bases, unchanged. No pneumothorax. No definite pleural ef fusion no new opacities. Stable chest. No acute disease. [facility] Workstation ID: [id number] Xr Fluoroscopy Time Result Date: 09/08/2018 This is an auto finalized result. Please refer to patient chart for further information. Saphenous Vein Mapping, Limited Result Date: 09/06/2018 Non-Invasive Vascular Patient: SHERRY Bazan [facility] Rec#: [id number] (Age): 1940(78y) Study Date: 09/06/2018 Room#: 3386 Type: Inpatient Sex: M Reading: Manuel Leonard MD, RPLUIZA, RVT Referring: ARISTEO Plant Production Manager: Tom Jeffers RDCS RVT Procedure Info: [id number] Study Quality: Lower Vein Map: limited Study [...] Esau Alejandro MD General Surgery PGY-1 Pager [phone] *After 5pm, or on weekends, page [phone]* * Sirisha Doshi, RD - 09/07/2018 2:26 [...] Estimated Energy Needs Total Energy Estimated Needs: 2328-1503 kcal Method for Estimating Needs: MSJ + 20% Total Protein Estimated Needs: 88-106 g Method for Estimating Needs: 1-1.2 g/kg IBW (BMI 24.9) Assessed By: Sirisha Doshi RD, LD * Maranda Melénedz CNP - 09/07/2018 1:15 PM EST Progress Note: [facility] PAIN SERVICE Date: 09/07/2018 Patient name: Tristin Powell Date Of : 1940 Assessment/Plan: Pain of left lower extremity Assessment & Plan -Presented to [facility] 09/04/2018 as a transfer from [place] for second opinion regarding left lower extremity [...] in pain -Reports pain is uncontrolled with AGRICULTURAL COMMODITIES INSPECTOR Dilaudid pump, and pain does not decrease [...] on hospital day 3 as transfer from [place] for second opinion for LLE pain and discoloration. S/p LLE angio with stent placement 08/09/18. HPI: Patient found writhing in bed, holding his left leg; family members at bedside. He is alert and oriented, and appears extremely uncomfortable. Patient states he needs something for his pain now;AGRICULTURAL COMMODITIES INSPECTOR Dilaudid drip still in place. Family asking [...] artery disease involving coronary bypass graft of alat[place] heart without angina pectoris ARTERIOSCLEROSIS OF CORONARY [...] regarding pain and plan of care. * FrancoVianca ann, - 09/07/2018 10:15 AM EST [facility] Inpatient Progress Note 09/07/2018 Tristin Powell 1940 [id number] Assessment/Plan: Tristin Powell is a 78 y.o. male with a history of PVD s/p LLE angio with stent placement 08/09, prostate cancer, PVD, CAD, HTN who presented to [facility] 09/04/2018 as a transfer from [place] for second opinion regarding left lower extremity pain and discoloration that was present two days prior to admit there on 08/30. On admit his exam was notable for cool mottled left foot. He was admitted for further work up. Labs prior to transfer notable for Cr 0.7. 1. Critical LLE Ischemia: s/p LLE angio 08/09, Discharged on xeralto. Returned to the [facility] with worsening pain and discoloration of [...] the setting of acute limb ischemia.On dilaudid AGRICULTURAL COMMODITIES INSPECTOR per pain management. 3. Opioid induced constipation: [...] has uncontrolled LLE pain. Currently on Dilaudid AGRICULTURAL COMMODITIES INSPECTOR pump and pt is maxing his dose at 1.5mg q1h. Pt states he has continued pain in LLE. Instructed nursing staff tocontact pain management for updated pain plan/AGRICULTURAL COMMODITIES INSPECTOR titration. Plan for bypass surgery today. Physical [...] Franco DO - 09/06/2018 11:35 AM EST [employer] Inpatient Progress Note 09/06/2018 Tristin Powell 1940 [id number] Assessment/Plan: Tristin Powell is a 78 y.o. male with a history of PVD s/p LLE angio with stent placement 08/09, prostate cancer, PVD, CAD, HTN who presented to [facility] 09/04/2018 as a transfer from [place] for second opinion regarding left lower extremity pain and discoloration that was present two days prior to admit there on 08/30. On admit his exam was notable for cool mottled left foot. He was admitted for further work up. Labs prior to transfer notable for Cr 0.7. 1. Critical LLE Ischemia: s/p LLE angio 08/09, Discharged on xeralto. Returned to the [facility] with worsening pain and discoloration of [...] CALCIUM mg/dL 9.5 9.3 * Yasmeen Diaz, PLUMBER SUPERVISOR - 09/06/2018 7:37 AM EST [facility] Heart & Vascular Cardiology Daily [...] pop angioplasty with stent placement 08/09 at [facility] in [place], [place]. Ptwas placed on Xarelto and ASA. [...] artery disease involving coronary bypass graft of alatna heart without angina pectoris Assessment & Plan [...] 81 mg 81 mg Oral Daily Yasmeen Stacie Joe, KAMARI 81 mg at 09/05/18950 aspirin EC tablet 162 mg 162 mg Oral Daily Mirna Mckeon MD 162 mg at 09/05/181754 atorvastatin (LIPITOR) tablet 40 mg 40 mg Oral Nightly Mirna Mckeon MD 40 mg at 09/05/182030 atropine injection 1 mg 1 mg Intravenous PRN Ben Hahn MD bisacodyl (DULCOLAX) EC tablet 5 mg 5 mg Oral Daily PRN Mirna Mckeon MD clopidogrel (PLAVIX) tablet 75 mg 75 mg Oral Daily Mirna Mckeon MD 75 mg at 09/05/18950 docusate sodium (COLACE) capsule 100 mg 100 mg Oral Daily Mirna Mckeon MD 100 mg at gabapentin (NEURONTIN) capsule 300 mg 300 mg Oral Q12H SADIA Mirna Mckeon MD 300 mg at 09/05/182030 heparin (porcine) 25,000 unit/250 mL(100 unit/mL) in D5W infusion 0-70 Units/kg/hr (Order-Specific)Intravenous Continuous Tiana Em DO Stopped at 09/05/18 1542 HYDROmorphone (DILAUDID) 0.5 mg/mL injection 0.25-0.5 mg 0.25-0.5 mg Intravenous Q3H PRN Mirna Mckeon MD 0.5 mg at 09/06/18 0442 metoprolol succinate (TOPROL-XL) 24 hr tablet 50 mg 50 mg Oral Daily Mirna Mckeon MD 50 mg at 09/05/18 175 naloxone (NARCAN) injection 0.1 mg 0.1 mg [...] BID Mirna Mckeon MD 1 tablet at 09/05/18 2031 sodium chloride 0.9% (NS) bolus 250 mL [...] CKTOTAL, CKMB, TROPONINI, TROPONINT Yasmeen Diaz, MSN, GAME ENGINEER-C Nurse Practitioner 09/06/2018 * Vianca Franco, DO - 09/05/2018 11:11 AM EST [facility] Inpatient Progress Note 09/05/2018 Tristin Powell 1940 [id number] Assessment/Plan: Tristin Powell is a 78 y.o. male with a history of PVD s/p LLE angio with stent placement 08/09, prostate cancer, PVD, CAD, HTN who presented to [facility] 09/04/2018 as a transfer from [place] for second opinion regarding left lower extremity [...] on xeralto. Returned to the [facility] with worsening pain and discoloration of [...] EST Patient Name: Tristin Powell MR #: [id number] : 1940 Physicians: Flash Lovelace MD (Family); No ref. provider found (Referring) History of Present Illness: Tristin Powell is a 78 y.o. male Dictation on: 09/20/2018 5:58 PM by: FLYNN MANN [[id number]] History: The following portions of the patient's [...] None 09/20/2018 2:00 PM Wound Bed Characteristics Black;Yellow;Red;[place] 09/20/2018 2:00 PM Edna-wound Assessment Dry;Ecchymosis 09/20/2018 2:00 PM Treatments Not Applicable 09/20/2018 2:00 PM Hemostasis Not applicable 09/20/2018 2:00 PM Cleansed Sterile saline 09/20/2018 2:00 PM Primary Dressing Betadine;Impregnated gauze 09/20/2018 2:00 PM Secondary Dressing Dry gauze dressing;Gauze roll;Gauze pad 09/20/2018 2:00 PM Compression Dressing Not Applicable 09/20/2018 2:00 PM Dictation on: 09/20/2018 5:59 PM by: FLYNN MANN [[id number]] Assessment and Plan: SNOMED CT(R) 1. Critical lower limb ischemia CRITICAL LOWER LIMB ISCHEMIA Prealbumin Albumin Protein,Total XR Foot Left 3+ Views (Standard) XR Ankle Left 3+ Views (Standard) 2. Gangrene (HCC) GANGRENOUS DISORDER 3. PVD (peripheral vascular disease) (HCC) PERIPHERAL VASCULAR DISEASE 4. Left foot pain PAIN IN LEFT FOOT Dictation on: 09/20/2018 6:00 PM by: FLYNN MANN [[id number]] Flynn Mann DPM, FACFAS Electronically signed by [...] from pt's 09/20/18 clinic visit to pt's [facility] [place]. ADRIENNE previously faxed same on 09/20/18 but now signed by physician. in this encounter* Radha Parker RN - 10/04/2018 4:59 PM EST Patient [facility]. * Flynn Mann DPM - 10/04/2018 4:50 PM EST Patient Name: Tristin Powell MR #: [id number] : 1940 Physicians: Flash Lovelace MD (Family); No ref. provider found (Referring) History of Present Illness: Trisitn Powell is a 78 y.o. male This [...] post bypass surgery with Dr. Sarabia at [facility] on 09/07/2018. No new complaints per patient. [...] will admit the patient to [facility] today, and he will receive IV antibiotic [...] Canseco MD - 10/12/2018 9:44 AM EST [facility] DAILY PROGRESS NOTE Assessment and Plan 78 y.o. male patient of Flash Lovelace MD with history of PAD, CAD and HTN that presented to [place] with need for left foot partial amputation. [...] lovenox Qureshi Catheter: none Disposition Discharge Location: [facility] Estimated Discharge Date: Medically stable to [...] Cardiology, Medications and Transcriptions * Edwina Browne, [facility],PharmD - 10/12/2018 9:26 AM EST PHARMACOTHERAPY NOTE: [...] mcg/mL 14.5-hour post-dose level Pharmacist: Edwina Browne RPh,PharmCarlo, BCPS Contact Number: Vocera OR pharmacist * [...] Independent Transfers Sit to Stand: Contact guard Financial Reserve Clerk: Wheeled walker Skilled Intervention: cont. to reinforce [...] Wheelchair-electric Prior Level of Function Level of Wells: Independent with ADLs and functional transfers, Independent [...] Physical Therapy Plan of Care. * Nabor [place], DPM - 10/12/2018 6:33 AM EST Podiatry [...] labs reviewed. -Empiric IV Vancomycin. -Radiographs reviewed. -[facility] c'sed for medical management. -WBAT to LLE -DVT ppx lovenox. -Patient discussed with Dr. Mann who agrees with assessment and plan. Patient had bypass surgery ofLLE at [place] in August. Pt now s/p left midfoot [...] articulations. Surgical drain present. VK/mll Workstation ID: [id number] XR Chest 1 View Final Result 1. [...] consider MRI or CT. TRP/dbg Workstation ID: [id number] * Jeanette Ramirez RN - 10/11/2018 4:13 PM EST VM from Jose Manuel @ [facility] requesting final Iv atb orders. Return call to Jose Manuel noting one more random Vanco level in AM, then final dose to be determined. Jose Manuel asks we communicate with Andrew tomorrow in Jose Manuel's absence. * Nicolas Maggy Kaiser, POLLY - 10/11/2018 4:01 PM EST Occupational Therapy [...] Sit: Modified independence Sit to Supine: Modified Wells Functional Transfers Sit to Stand: Contact guard [...] Wheelchair-electric Prior Level of Function Level of Wells: Independent with ADLs and functional transfers, Independent [...] Therapy Plan of Care. * Edwina Browne [facility],PharmD - 10/11/2018 3:04 PM EST PHARMACOTHERAPY NOTE: [...] Monitoring: Last vancomycin dose administered 10/09 @ 6058 Vancomyicin drug level 10/11 @ 1059 : 14.3 mcg/mL 36-hour post-dose level Pharmacist: Edwina Browne RPh,PharmD, BCPS Contact Number: Vocera OR pharmacist * Jeanette Ramirez RN - 10/11/2018 1:03 PM EST Call from daughter Monica Zaidi requesting update on pre-cert and possible transport needs. Advised Monica we do not yet have pre-cert and we plan to notify her of the same once we obtain it. She requests to transport her father to [facility]. She relates they have been transporting him [employer]SEMBL[employer] and are aware of his limited gait and transferring capabilities. Monica plans to arrive here 10/12 after an AM meeting. Plan to contact Monica once pre-cert is obtained # [phone]. * Alice Delvalle, SNATH HANDLE ASSEMBLER - 10/11/2018 11:33 AM EST Physical Therapy [...] to Chair: (x 2 for line management) Financial Reserve Clerk: Wheeled walker Skilled Intervention: cued to achieve [...] Wheelchair-electric Prior Level of Function Level of Wells: Independent with ADLs and functional transfers, Independent [...] Canseco MD - 10/11/2018 10:43 AM EST [facility] DAILY PROGRESS NOTE Assessment and Plan 78 y.o. male patient of Flash Lovelace MD with history of PAD, CAD and HTN that presented to [place] with need for left foot partial amputation. [...] lovenox Qureshi Catheter: none Disposition Discharge Location: [facility] Estimated Discharge Date: Pending Hgb stability [...] labs reviewed. -Empiric IV Vancomycin. -Radiographs reviewed. -[facility] c'sed for medical management. -WBAT to LLE -DVT ppx lovenox. -Patient discussed with Dr. Mann who agrees with assessment and plan. Patient had bypass surgery ofLLE at [place] in August. Pt now s/p left midfoot [...] articulations. Surgical drain present. VK/mll Workstation ID: [id number] XR Foot Left 3+ Views (Standard) Final [...] PAD, CAD and HTN that presented to [place] with need for left foot partial amputation. Action: AUDREY met with pt who requests referral to [facility] [place]. AUDREY educated pt on referral/PC process. Pt [...] labs reviewed. -Empiric IV Vancomycin. -Radiographs reviewed. -[facility] c'sed for medical management. -WBAT to LLE -DVT ppx lovenox. -Patient discussed with Dr. Mann who agrees with assessment and plan. Patient had bypass surgery ofLLE at [place] in August. Pt now s/p left midfoot [...] articulations. Surgical drain present. VK/mll Workstation ID: [id number] XR Foot Left 3+ Views (Standard) Final [...] Canseco MD - 10/10/2018 9:37 AM EST [facility]ILY PROGRESS NOTE Assessment and Plan 78 y.o. male patient of Flash Lovelace MD with history of PAD, CAD and HTN that presented to [place] with need for left foot partial amputation. [...] primary Qureshi Catheter: none Disposition Discharge Location: [facility] Estimated Discharge Date: Pending Hgb stability [...] Microbiology, Pathology, Radiology, Cardiology, Medications and Transcriptions Jeanette Meza RN - 10/10/2018 8:26 AM EST COMPLEX DISCHARGE Date: 10/10/2018 Time: 8:26 AM Patient Name: Tristin Powell Date of : 1940 Sex: Male Patient Information Primary Caregiver: Self Accompanied by/Relationship: none Rastafari/Cultural Factors: none Legal Documentation Advance Directives: (none) Resuscitation Status: Resuscitate Resources Financial Resources: Other (Comment)([employer] Medicare insurance confirmed) Community Resources: Other (Comment)(PCP Dr. Lovelace [phone]) Discharge Plan Shared UM/CC and RN Source of Information: Patient Contact Phone Number: emergency contact Amina Zaidi p:[phone] Living Arrangements: Children Support Systems: Children Functional Status: Independent Type of Residence: Private residence Prior to Admission Home Care Services: Yes Type of Current Home Care Services: Home health care Current Agency Name: [facility] Current Home Equipment: Walker, Wheeled walker, Toilet seat photo graphics librarian, Tub/Shower chair Insurance Coverage for Prescriptions: Yes [...] Estimated Energy Needs Total Energy Estimated Needs: 7673-6837 kcal Method for Estimating Needs: 25-30 kcal/kg Total Protein Estimated Needs: 95-144 gm Method for Estimating Needs: 1.0-1.2 gm/kg Assessed by: Gaye Carver RD,LD Phone #: [phone] Pager #: [phone] * Stan Canseco MD - 10/09/2018 11:01 AM EST [facility] DAILY PROGRESS NOTE Assessment and Plan 78 y.o. male patient of Flash Lovelace MD with history of PAD, CAD and HTN that presented to [place] with need for left foot partial amputation. [...] primary Qureshi Catheter: none Disposition Discharge Location: [facility] Estimated Discharge Date: Medically stable to dc home Outpatient Testing: none Subjective Resting comfortably. [...] labs reviewed. -Empiric IV Vancomycin. -Radiographs reviewed. -[facility] c'sed for medical management. -WBAT to LLE -DVT ppx lovenox. -Patient discussed with Dr. Mann who agrees with assessment and plan. Patient had bypass surgery ofLLE at [place] in August. Pt now s/p left midfoot [...] articulations. Surgical drain present. VK/mll Workstation ID: [id number] XR Foot Left 3+ Views (Standard) Final [...] Canseco MD - 10/08/2018 10:45 AM EST [facility] DAILY PROGRESS NOTE Assessment and Plan 78 y.o. male patient of Flash Lovelace MD with history of PAD, CAD and HTN that presented to [place] with need for left foot partial amputation. [...] reviewed: No acute abnormalities or ST gas -[facility] c'sed for medical management and preoperative clearance. -WBAT to LLE -DVT ppx lovenox. -Patient discussed with Dr. Mann who agrees with assessment and plan. Pt with mummification and drygangrene of left forefoot, patient had bypass surgery of LLE at [place] in August. Pt with some local erythema [...] is clinically warranted, consider MRI or [facility]/db Workstation ID: [id number] Echocardiogram complete (Results Pending) [...] participate in this patient's care. Demetrice Lomeli, PharmCarlo, [facility] Vocsouth english: ED Pharmacy Electronically Signed by Demetrice Lomeli, [facility],PharmD on 10/08/2018 12:15 AM EST * Aaron Choi MD - 10/07/2018 11:56 AM EST [facility] DAILY PROGRESS NOTE Assessment and Plan 78 y.o. male patient of Flash Lovelace MD with history of PAD, CAD and HTN that presented to [place] with need for left foot partial amputation. [...] reviewed: No acute abnormalities or ST gas -[facility] c'sed for medical management and preoperative clearance. -WBAT to LLE -DVT ppx lovenox. -Patient discussed with Dr. Mann who agrees with assessment and plan. Pt with mummification and drygangrene of left forefoot, patient had bypass surgery of LLE at [place] in August. Pt with some local erythema will monitor response to Abx. Continue daily betadine dressing changes. Plan for OR on Monday (10/08/18) for left midfoot amputation (Open vs. Closed) at 7am. Consent obtained. [facility] consulted for medical management. Patient will require preoperative risk stratification. Appreciate [facility] assistance. Further plan per Dr. Mann SUBJECTIVE [...] Choi MD - 10/06/2018 10:50 AM EST [facility] DAILY PROGRESS NOTE Assessment and Plan 78 y.o. male patient of Flash Lovelace MD with history of PAD, CAD and HTN that presented to [place] with need for left foot partial amputation. [...] reviewed: No acute abnormalities or ST gas -[facility] c'sed for medical management and preoperative clearance. -WBAT to LLE -DVT ppx lovenox. -Patient discussed with Dr. Mann who agrees with assessment and plan. Pt with mummification and drygangrene of left forefoot, patient had bypass surgery of LLE at [place] in August. Pt with some local erythema will monitor response to Abx. Continue daily betadine dressing changes. Plan for OR on Monday (10/08/18) for left midfoot amputation (Open vs. Closed) at 7am. Consent to be obtained. [facility]. Patient will require preoperative risk stratification. [facility] assistance. Further plan per Dr. [...] reviewed: No acute abnormalities or ST gas -[facility] c'sed for medical management and preoperative clearance. -WBAT to LLE -DVT ppx lovenox. -Patient discussed with Dr. Mann who agrees with assessment and plan. Pt with mummification and drygangrene of left forefoot, patient had bypass surgery of LLE at [place] in August. Pt with some local erythema will monitor response to Abx. Continue daily betadine dressing changes. Plan for OR on Monday (10/08/18) for left midfoot amputation (Open vs. Closed). [facility] consulted for medical management. Patient will require preoperative risk stratification. Appreciate [facility] assistance. Further plan per Dr. Mann SUBJECTIVE [...] further evaluation is clinically warranted, consider MRI. YASHIRA/sheilag Workstation ID: [id number] Associated attestation - Flynn [...] EST Patient Name: Tristin Powell MR #: [id number] : 1940 Physicians: Flash Lovelace MD (Family); No ref. provider found (Referring) History of Present Illness: Tristin Powell is a 78 y.o. male Dictation on: 10/18/2018 6:12 PM by: FLYNN MANN [[id number]] History: The following portions of the patient's [...] on: 10/18/2018 6:13 PM by: FLYNN MANN [[id number]] Assessment and Plan: SNOMED CT(R) 1. Gangrene (HCC) GANGRENOUS DISORDER 2. 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 (HCC) HISTORY OF AMPUTATION OF FOOT 3. PVD (peripheral vascular disease) ([facility]) PERIPHERAL VASCULAR DISEASE Dictation on: 10/18/2018 6:14 PM by: FLYNN MANN [[id number]] Flynn Mann DPM, FACFAS Electronically signed by the above physician 10/18/18 * Maia Duvall RN - 10/18/2018 4:16 PM EST Dressing changed by Dr Mann. Betadine, 4x4's, ABD pad, specialist cast padding, splint, rio bandages * Maia Duvall RN - 10/18/2018 3:39 PM EST in this encounter* Mine Lew LISW - 10/19/2018 8:38 AM EST Pt was seen in clinic 10/18/18. [facility] fax[facility] signed d/c orders/instructions to pt's SNF, [facility]. in this encounter* Mine Lew LISW - 10/26/2018 9:19 AM EST Pt was seen in wound clinic 10/25/18. [facility] faxed signed orders/instructions to pt's [facility], [facility]. in this encounter* Radha Parker RN - 10/31/2018 4:45 PM EST Opened in error. in this encounter* Eugene Barnett MD - 12/17/2018 9:57 PM EDT [address] [address] FAX [phone] Tristin Powell 1940 male MD Flash Peña MD [id number] Chief Complaint Patient presents with Cerumen Impaction [...] MIDFOOT AMPUTATION; Surgeon: Flynn Mann DPM; Location: [facility] OR; Service: Podiatry ANKLE SURGERY Left BYPASS PERONEAL FEMORAL Right 09/07/2018 Procedure: BYPASS PERONEAL FEMORAL, RIGHT SAPHENOUS VEIN HARVEST, COMPLETION ANGIOGRAM; Surgeon: Mohsen Sarabia MD; Location: [facility] NEURO OR; Service: Cardiovascular CARDIAC CATHETERIZATION Left 09/05/2018 Procedure: Angio Lower Extremity; Surgeon: Ben Hahn MD; Location: [facility] VENEREAL DISEASE CONTROL HEAD; Service: Cardiovascular CARDIAC SURGERY 2017 triple bypass EGD N/A 10/10/2018 Procedure: ESOPHAGOGASTRODUODENOSCOPY; Surgeon: Ben Jensen MD; Location: [facility] Endo; Service: Gastroenterology EYE SURGERY Right 2015 [...] MD documented in this encounter* Rose Rosales, [facility] - 10/09/2019 5:07 PM EST VASCULAR SURGERY CONSULT NOTE Patient Name: Tristin Powell Admit Date: MR #: [id number] : 1940 Assessment and Plan: cta with runoff to evaluate pain in right leg, edema, cool to touch, no evidence of open wounds 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 Sarabia, agrees with above recommendation, Dr. Sarabia to review results once performed. [facility] to order patient testing, track results. [...] MIDFOOT AMPUTATION; Surgeon: Flynn Mann DPM; Location: [facility] OR; Service: Podiatry ANKLE SURGERY Left BYPASS PERONEAL FEMORAL Right 09/07/2018 Procedure: BYPASS PERONEAL FEMORAL, RIGHT SAPHENOUS VEIN HARVEST, COMPLETION ANGIOGRAM; Surgeon: Mohsen Sarabia MD; Location: [facility] NEURO OR; Service: Cardiovascular CARDIAC CATHETERIZATION Left 09/05/2018 Procedure: Angio Lower Extremity; Surgeon: Ben Hahn MD; Location: [facility]ERE[facility] DISEASE CONTROL HEAD; Service: Cardiovascular CARDIAC SURGERY 2017 triple bypass EGD N/A 10/10/2018 Procedure: ESOPHAGOGASTRODUODENOSCOPY; Surgeon: Ben Jensen MD; [place] [facility]; Service: Gastroenterology EYE SURGERY Right 2015 [...] file Gets together: Not on file Attends adventism service: Not on file Active member of [...] Instructions Prior to Surgery LOLA: Printed on:10/09/19 9577 Medication Information Take last dose on Take [...] the diagnosis & follow-upneeds. Rose Rosales CNP [phone] documented in this encounter* Flynn Mann, SHIRLEY - 10/25/2018 6:03 PM EST Patient Name: Tristin Powell MR #: [id number] : 1940 Physicians: Flash Lovelace MD (Family); No ref. provider found (Referring) History of Present Illness: Tristin Powell is a 78 y.o. male Dictation on: 10/25/2018 6:03 PM by: FLYNN MANN [[id number]] History: The following portions of the patient's [...] on: 10/25/2018 6:04 PM by: FLYNN MANN [[id number]] Assessment and Plan: SNOMED CT(R) 1. 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 Gangrene ([facility]) GANGRENOUS DISORDER 3. PVD (peripheral vascular disease) ([facility]) PERIPHERAL VASCULAR DISEASE 4. 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 Lower extremity edema EDEMA OF LOWER EXTREMITY Dictation on: 10/25/2018 6:04 PM by: FLYNN MANN [[id number]] Flynn Mann DPM, FACFAS Electronically signed by the above physician 10/25/18 * Lori Velez RN - 10/25/2018 3:46 PM EST in this encounter* Mine Lew LISW - 09/21/2018 8:27 AM EST Pt was seen in clinic 09/20/18. [facility] [place] signed d/c orders/instructions to pt's [facility], [facility]. in this encounter* Mohsen Sarabia MD - [...] not included)... Note Patient: TRISTIN POWELL MRN: [id number] Age: 79 years Sex: Male : 1940 Associated Diagnoses: None Author: Jose C Davis MD Assessment Assessment Diagnosis: Osteoarthritis (EHP22-GN M47.892, Working, Medical). Posterior cervical fusion. Dr. [...] Ischemic foot- Primary PAD (peripheral artery disease) ([facility]) Unspecified peripheral vascular disease Critical lower limb ischemia Unspecified circulatory system disorder Coronary artery disease involving coronary bypass graft of alatna heart without angina pectoris Hypercholesteremia Pure hypercholesterolemia Essential hypertension Unspecified essential hypertension Class 1 obesity with body mass index (BMI) of 31.0 to 31.9 in adult Pain of left lower extremity Diagnosis Critical lower limb ischemia- Primary Unspecified circulatory system disorder Gangrene ([facility]) Gangrene PVD (peripheral vascular disease) ([facility]) Unspecified peripheral vascular disease Left foot pain Pain in soft tissues of limb Diagnosis Critical lower limb ischemia Unspecified circulatory system disorder Diagnosis Gangrene ([facility])- Primary Gangrene PVD (peripheral vascular disease) ([facility]) Unspecified peripheral vascular disease Left foot pain Pain in soft tissues of limb Critical lower limb ischemia Unspecified circulatory system disorder Ulcer of toe of left foot, with necrosis of bone ([facility]) Diagnosis Acute post-operative pain- Primary Gangrene of left foot ([facility]) Diagnosis Gangrene ([facility])- Primary Gangrene 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 ([facility]) PVD (peripheral vascular disease) ([facility]) Unspecified peripheral vascular disease Lower extremity edema Edema 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, left Diagnosis 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 ([facility]) S/P bypass graft of extremity Diagnosis Referred otalgia of right ear- Primary Bilateral temporomandibular joint pain Diagnosis Bilateral carotid artery stenosis Occlusion and stenosis of carotid artery without mention of cerebral infarction Diagnosis 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 ([facility]) S/P bypass graft of extremity Diagnosis 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 ([facility]) S/P bypass graft of extremity Diagnosis Pain of left lower extremity Diagnosis S/P bypass graft of extremity PAD (peripheral artery disease) ([facility]) Unspecified peripheral vascular disease 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 ([facility]) Diagnosis Bilateral carotid artery stenosis Occlusion and stenosis of carotid artery without mention of cerebral infarction Diagnosis 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 ([facility]) Diagnosis 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 Gangrene (HCC) Gangrene PVD (peripheral vascular disease) (HCC) Unspecified peripheral vascular disease 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 at [phone] or go to the Emergency Room. Signs/Symptoms of infection: If you have any fever, chills, nausea, vomiting or increased odor, drainage, pain or redness to thewound, call [facility] at [phone]. If after hours, contactyo family physician or go to the Emergency [...] home care instructions please contact [facility] at [phone]. If after hours, contact your primary care physician or go to the hospital emergency room. Please call 24 hours prior to your scheduled appointment if you need to cancel or reschedule. in this encounter* Patient Instructions* Radha Parker RN - 10/04/2018 1:14 PM EST You are being admitted to [facility] for surgery possibly Monday. Go to [facility]. in this encounter* Patient Instructions* Maia [...] bleeding does not stop, call [facility] at [phone] or go to the Emergency Room. Signs/Symptoms of infection: If you have any fever, chills, nausea, vomiting or increased odor, drainage, pain or redness to thewound, call [facility] at [phone]. If after hours, contactyo family physician or go to the Emergency [...] regarding your home care instructions please contact [facility] at [phone]. If after hours, contact your primary care [...] If the bleeding does not stop, call [facility] at [phone] or go to the Emergency Room. Signs/Symptoms of infection: If you have any fever, chills, nausea, vomiting or increased odor, drainage, pain or redness to thewound, call [facility] at [phone]. If after hours, contactyo family physician or go to the Emergency [...] regarding your home care instructions please contact [facility] at [phone]. If after hours, contact your primary care physician or go to the hospital emergency room. Please call 24 hours prior to your scheduled appointment if you need to cancel or reschedule. in this encounter Procedure Findings Note Patient: TRISTIN POWELL MRN: [id number] Age: 79 years Sex: Male : 1940 [...] for spinal fusion. SURGEON: Ramana Cason MD RESEARCH NEUROPSYCHOLOGIST: LEONARDA Selby ANESTHESIA: General. SPECIMENS: There were no specimens removed. COMPLICA (more content not included)... Note CLINICAL SUMMARY Please take this summary document to your follow up appointments. [facility] 11/29/19 11:09 [address] [place]. [address] PATIENT INFORMATION Name: TRISTIN POWELL Address: [address] [address] Age: 79 Years Phone: [phone] : 1940 12:00 MRN: ([facility])-[id number] Sex: Male Race: White Ethnicity: Not Hispan/Lat Admitted From: Clinic or [facility] Medical Service: Orthopedic Surgery Nurse Unit/Bed: (CO) 2N 0208-01 Admit Date: 11/28/2019 05:01 PCP: Flash Lovelace MD PHYSICIANS INVOLVED WITH CARE Attending Physicians: Ramana Cason MD - Orthopaedic Surg Admitting Physician: Ramana Cason MD - Orthopaedic Surg Primary Care Physician:[place] DIAZ , Flash Arteaga,[facility], - Consults: IWONA Wren - [...] not included)... Note Patient: TRISTIN POWELL MRN: ([id number] Age: 79 years Sex: Male : 1940 Associated Diagnoses: None Author: Jose C Davis MD Assessment Assessment Diagnosis: Osteoarthritis (BYM12-AO M47.892, Working, Medical). Posterior cervical fusion. Dr. [...] Visit Admit Date Peripheral vascular disease March 11 11:20am Chief Complaint Admit Date RT foot pain, swell, with sore February 11:20am PAD w/Claudication, Non Heeling Wound Ju ly 2024 12:29pm chest pain, swelling in legs, cough Apr 4:42pm Reason for Visit Admit Date Peripheral vascular disease March 11 11:20am Chest pain May 02, 2025 4:42pm Dyspnea May 02, 2025 4:42pm Chief Complaint Admit Date RT foot pain, swell, with sore February 11:20am PAD w/Claudication, Non Heeling Wound Ju ly 2024 12:29pm chest pain, swelling in legs, cough Apr 11:19am Reason for Visit Admit Date Peripheral vascular disease March 11 11:20am Acute respiratory failure with hypoxia S eptember 2024 11:19am Chest pain May 04, 2025 11:19am COPD exacerbation May 04, 2025 11:19am Dyspnea May 04, 2025 11:19am Hemoptysis May 04, 2025 11:19am Lung abscess May 04, 2025 11:19am Rhinovirus infection May 04, 2025 11:19am Additional Source Comments (unrecognized sect ion and [...] section and content) DATE CREATED AUTHOR 02/16/2018 [facility] DATE CREATED AUTHOR AUTHOR'S ORGANIZ ATION 09/07/2018 [facility] DATE CREATED AUTHOR AUTHOR'S ORGANIZ ATION 11/01/2018 [facility] DATE CREATED AUTHOR AUTHOR'S ORGANIZ ATION 11/02/2018 [facility] DATE CREATED AUTHOR AUTHOR'S ORGANIZ ATION 11/12/2018 [facility] DATE CREATED AUTHOR AUTHOR'S ORGANIZ ATION 05/28/2020 [facility] DATE CREATED AUTHOR AUTHOR'S ORGANIZ ATION 07/21/2021 [facility] DATE CREATED AUTHOR AUTHOR'S ORGANIZ ATION 01/02/2022 [facility] DATE CREATED AUTHOR AUTHOR'S ORGANIZ ATION 05/24/2022 [facility] DATE CREATED AUTHOR AUTHOR'S ORGANIZ ATION 10/29/2022 [facility] dical Specialist DATE CREATED AUTHOR AUTHOR'S ORGANIZ ATION 11/01/2022 [facility] DATE CREATED AUTHOR AUTHOR'S ORGANIZ ATION 12/08/2022 [facility] DATE CREATED AUTHOR AUTHOR'S ORGANIZ ATION 08/15/2023 [facility] DATE CREATED AUTHOR AUTHOR'S ORGANIZ ATION 12/31/2023 [facility] DATE CREATED AUTHOR AUTHOR'S ORGANIZ ATION 05/15/2024 [facility] DATE CREATED AUTHOR AUTHOR'S ORGANIZ ATION 12/22/2024 [facility] DATE CREATED AUTHOR AUTHOR'S ORGANIZ ATION 01/24/2025 [facility] DATE CREATED AUTHOR AUTHOR'S ORGANIZ ATION 04/25/2025 [facility] DATE CREATED AUTHOR AUTHOR'S ORGANIZ ATION 05/04/2025 [facility] dical Specialists EPIC DATE CREATED AUTHOR AUTHOR'S ORGANIZ ATION 05/09/2025 [facility] DATE CREATED AUTHOR AUTHOR'S ORGANIZ ATION 05/12/2025 [facility] DATE CREATED AUTHOR AUTHOR'S ORGANIZ ATION 05/13/2025 [facility] Reason for Visit (unrecogniz ed section and [...] Contact Pending Review Cardiology Diagnoses 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) S/P bypass graft of extremity Procedures US Doppler ankle/brachial index Segmental doppler lower extremity arterial Mohsen Sarabia MD [facility] [address] [place] [address] Reason Comments Cerumen Impaction Status Reason Specialty Diagnoses / Procedures Referred By Contact Referred To Contact Pending Review Cardiology Diagnoses Bilateral carotid artery stenosis Procedures Carotid Duplex Mohsen Sarabia MD [address] [place] [address] Reason Comments Follow-up S/P PERONEAL- FEMORA L BYPASS 09/07/18 Status Reason Specialty Diagnoses / Procedures Referre d By Contact Referred To Contact Closed Radiology Diagnoses S/P bypass graft of extremity PAD (peripheral artery disease) (HCC) 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) Procedures CT Angiogram Abdominal Aorta With Lower Extremity Mohsen Sarabia MD [facility] [address] [place] [address] Status Reason Specialty Diagnoses / Procedures Referred By Contact Referred To Contact Closed Cardiology Diagnoses Bilateral carotid artery stenosis Procedures Carotid Duplex Mohsen Sarabia MD [address] [place], [place] [address]mar[address] [facility] [address] [place] [address] Status Reason Specialty Diagnoses / Procedures Referre d By Contact Referred To Contact Closed Cardiology Diagnoses 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 bypass gr aft 09/09 Reason Comments Follow-up 6mo per-fem bypass g raft Status Reason Specialty Diagnoses / Procedures Referred By Contact Referred To Contact Pending Review Cardiology Diagnoses Atherosclerosis of alatna artery of left lower extremity with rest pain (HCC) S/P bypass graft of extremity Procedures Ultrasound duplex arterial leg left Mohsen Sarabia MD [address] [place], [place] [address] [facility] [address] [place] [address] Reason Comments Post Op Visit Specialty Diagnoses / Procedures Referred By Contac t Referred To Contact Diagnoses Pain in prosthetic joint, subsequent encounter Procedures XR HIP WITH PELVIS RIGHT Dashawn Silvestre MD [address] [place] [address] Referral ID Status Reason Start Date Expiration Date V isits Requested Visits Authorized [id number] New Request 11/19/2021 12/14/2022 1 1 Reason Comments Skin Lesion Specialty Diagnoses / Procedures Referred By Contac t Referred To Contact Diagnoses Hx of total hip arthroplasty, right Procedures XR HIP WITH PELVIS RIGHT Dashawn Silvestre MD [address] [place], [place] [id number] Referral ID Status Reason Start Date Expiration Date V isits Requested Visits Authorized [id number] New Request 01/05/2022 01/30/2023 1 1 Reason Comments Pain Condition Update Reason Comments Leg Swelling Leg Pain Nausea Specialty Diagnoses / Procedures Referred By Contac t Referred To Contact Diagnoses Cellulitis Referral ID Status Reason Start Date Expiration Date Visits Re quested Visits Authorized [id number] 1 1 Reason Comments Consult Lung nodule and CT f /u Specialty Diagnoses / Procedures Referred By Contac t Referred To Contact Pulmonary Disease / Pulmonology Diagnoses Pulmonary nodule Muna Otto MD [address] [place] [address] [address] [place] [address] Carson Gallagher MD [address] [place] [address] Referral ID Status Reason Start Date Expiration Date Visits Requested Visits Authorized [id number] Pending Review Specialty Services Required/Pat ient's Best Interest 01/20/2022 01/20/2023 1 1 Reason Comments Leg Swelling Specialty Diagnoses / Procedures Referred By Contac t Referred To Contact Diagnoses PAD (peripheral artery disease) ([facility]) Referral ID Status Reason Start Date Expiration Date Visits Re quested Visits Authorized [id number] 1 1 Specialty Diagnoses / Procedures Referred By Contac t Referred To Contact Diagnoses Hx of total hip arthroplasty, right Procedures XR HIP WITH PELVIS RIGHT Scar Ortega, AGRICULTURE SPECIALIST-PLUMBER SUPERVISOR [address] [place] [address] Referral ID Status Reason Start Date Expiration Date V isits Requested Visits Authorized [id number] New Request 07/06/2022 07/31/2023 1 1 Reason Comments Follow-up Reason Onset Date Comments Medication Refill 08/30/2022 Reason Comments Foot Injury Shortness of Breath Specialty Diagnoses / Procedures Referred By Contac t Referred To Contact Diagnoses Peripheral edema Elevated troponin Community acquired pneumonia of left lower lobe of lung Referral ID Status Reason Start Date Expiration Date Visits Re quested Visits Authorized [id number] 1 1 Reason Comments Follow-up [id number]/P LT FEM-PERONEAL BYPASS 09/07/18, (YAMILE AND DUPLEX BYPASS GRAFT PRIOR TODAY). Patient complains of bilateral leg pain. Referral ID Status Reason Start Date Expiration Date V isits Requested Visits Authorized [id number] New Request 08/01/2023 08/25/2024 1 1 Reason [...] Expiration Date Visits Re quested Visits Authorized [id number] 1 1 Reason Comments Hospital Follow-up Reason Comments Follow-up FU - WOUND CHECK - s /p R FEM-TIB BYPASS, 03/17 - APPT PER VAN ZELAYA Reason Comments Foot Ulcer Reason Comments Wound Check POST-OP - FU - WOUND CHECK - S/P R FEM-TIB BYPASS, 03/17 - BLE DUPLEX GRAFT, YAMILE'S PRIOR APPT TODAY - APPT PER VAN BOX Reason Onset Date Comments Medication Question [...] Tristin Powell Admit Date: 1070905 MR #: [id number] : 1940 The H&P has been reviewed and the patient has been examined. I concur with the findings of the H&P. There are no significant changes. It is appropriate to proceed with the planned procedure. Ben Jiang MD 09/07/2018 3:18 PM VASCULAR SURGERY CONSULT NOTE 09/06/18 Patient Name: Tristin Powell : 1940 MR #: [id number] Admit Date: 1070905 ----- Nicolas Addendum As below, 78 y.o. male with a h/o PAD, HTN, HLD, CAD s/p cardiac stent (x7, 7101-5314), CABG (x3vv, 2017; L [facility]), L ankle ORIF who p/w acute on chronic critical limb ischemia and claudication. Patient states he has been having claudication symptoms in bilateral lower extremities for the past 2-3 years. Patient states that although he has been active the past several months, his symptoms have progressively worsened. In June, the patient visited a quality improvement engineer to evaluate his left foot, in which [...] Dr. Sarabia. Miryam Rincon MD PGY-2 Surgery [phone] After 5pm and on Weekends, please page [phone] (Surgery Ground Crew Chief licensed occupational therapist) ----- Assessment and Plan: Tristin Powell is a 78 y.o. male with a PMH of PVD s/p LLE angio with stent placement 08/09, prostate cancer, PVD, CAD, HTN and a PSH of L ankle ORIF and thriple CABG in october 2016 with L saphenous vein harvested who presented to [facility] 09/04/2018 as a transfer from [place] for second opinion regarding left lower extremity pain and discoloration Chronic LLE ischemia - Patient underwent LLE angiogram with popliteal ballooning and stent 08/09/2018 in [place], sent on aspirin and xarelto - Angiography [...] prostate cancer presents as a transfer from [place] for concerns for left lower extremity pain [...] him sleep. While at the [facility] he was planned to undego intervention the day of transfer but requested [facility] transfer for second opinion. Review of Systems: [...] 09/05/2018 Physician(s): Ben Hahn MD Cath #: [id number] Ref. 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 Dyslipidemia: Yes Hypertension: Yes Pre-OP Diagnosis/Indication: Deann [...] amputation COMMENTS: No Complications ____ Equipment: Sheath(s) Ludia 5F 10CM PINNACLE SHEATH Aisle50 6F 45CM .038 FLEXOR CHECKFLO ANSEL1 SHEATH Wire(s) [employer] .035 X 150CM FIXED J WIRE Catheter(s) [employer] 5F MP TEMPO AQUA CATHETER Other [employer] [facility] .035 CXI ANGLED SUPPORT CATHETERS SHER VASCULAR [...] Non-Invasive Vascular Patient: SHERRY Bazan Med Rec#: [id number] (Age): 1940(78y) Study Date: 09/05/2018 Room#: G93 Type: Inpatient Sex: M Reading: Pierce Moreau DO, RPVI Referring: LEVY Plant Production Manager: Rima Celestin RDCS, RVT Plant Production Manager: Deena Pelayo RDCS RVT Procedure Info: [id number] Study Quality: Lower Arterial Duplex: adequate Diagnosis: [...] PSV Name Value Units EIA 83.2 cm/sec ODD JOB WORKER 95.6 cm/sec Profunda 85.5 cm/sec SFA - prox -25 cm/sec SFA - mid -67.2 cm/sec SFA - dist 58.2 cm/sec Popliteal - dist 0 cm/sec SNATH HANDLE ASSEMBLER 6.8 cm/sec Pre Stenosis #1 9.3 cm/sec [...] Esau Alejandro MD General Surgery PGY-1 Pager [phone] *After 5pm, or on weekends, page [phone]* Associated attestation - Mohsen Sarabia MD - 09/06/2018 4:46 PM EST Patient seen and examined. I have personally reviewed all pertinent labs, radiological studies and records. I have personally examined the patient and agree with resident/GAME ENGINEER/PA assessment and plan with the following additional [...] and Physical Note 09/04/18 Tristin Powell 1940 [id number] Assessment/Plan: Tristin Powell is a 78 y.o. male with a history of PVD s/p LLE angio with stent placement 08/09, prostate cancer, PVD, CAD, HTN who presented to [facility] 09/04/2018 as a transfer from [place] for second opinion regarding left lower extremity [...] on xeralto. Returned to the [facility] with worsening pain and discoloration of [...] prostate cancer presents as a transfer from [place] for concerns for left lower extremity pain and discoloration that was worse for two days. HE has had pain since 08/09 were he had left foot pain and had angioplasty with stent placement to left popliteal . Noted from RN at [facility] to have no No DP pulses by palpation or doppler. Positive popliteal pulse noted.blue/reddish color for the past 2 days . Pain doesn't allow him sleep. While at the [facility] he was planned to undego intervention the day of transfer but requested [facility] transfer for second opinion. [facility] records reviewed as above Patient currently [...] Tristin Powell Medication Instructions Prior to Surgery LOLA:[id number] Printed on:09/04/182146 Medication Information Take last dose [...] Results from last 7 days Lab Units 09/04/181929 WBC K/mcL 6.36 HGB g/dL 11.2* HCT % 33.3* PLT K/mcL 222 Invalid input(s): MAG LESVIA in this encounter INTERVAL HISTORY AND PHYSICAL Patient Name: Tristin Powell Admit Date: 2060905 MR #: [id number] : 1940 The H&P has been reviewed [...] Electronically signed by the above physician 10/08/18 [facility] PROGRESS NOTE Assessment and Plan 78 y.o. male patient of Flash Lovelace MD with history of PAD, CAD and HTN that presented to [place] with need for left foot partial amputation. [...] IV Vancomycin. Monitor local erythema -Radiographs pending -[facility] c'sed for medical management and preoperative clearance. -WBAT to LLE -DVT ppx lovenox. -Patient discussed with Dr. Mann who agrees with assessment and plan. 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 Pt with some local erythema will monitor response to Abx. Plan for OR on Monday (10/08/18) for left midfoot amputation. [facility] consulted for medical management. Patient will require preoperative risk stratification. Appreciate [facility] assistance. Further plan per Dr. Mann HISTORY OF PRESENT ILLNESS Tristin Powell is a 78 y.o. 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 Pt was seen by Dr. Mann at the wound care clinic earlier and was admitted for IV antibiotics and surgical intervention. Pt recently underwent bypass surgery at [facility] and has had improved blood flow and demarcation of gangrene since then. Pt does state that he has a cardiac history of triple bypass and stenting but has had no recent cardiac events, does follow with a stump shooter. Pt denies any active lung disease. Pt [...] Surgeon: Mohsen Sarabia MD; Location: [facility] NEURO OR; Service: Cardiovascular CARDIAC CATHETERIZATION Left 09/05/2018 Procedure: Angio Lower Extremity; Surgeon: Ben Hahn MD; Location: [facility] VENEREAL DISEASE CONTROL HEAD; Service: Cardiovascular CARDIAC SURGERY STENT PLACEMENT Medications [...] agree with the findings and the plan. [facility] consulted for medical management and clearance for anticipated left foot TMA and DEREK on Monday. Patient known to Dr. Sarabia, vascular surgery at [facility], and will follow with her next week [...] Powell Date of : 1940 Sex: Male CARBON CAPTURE POWER PLANT MANAGER met w/pt and daughter at bedside to discuss d/c recommendations. Daughter reports pt will be going home with 24 hour care from his 7 children. Pt requested a SNF list and will keep his options open. CARBON CAPTURE POWER PLANT MANAGER provided list and pt will notify CARBON CAPTURE POWER PLANT MANAGER with choice of SNF or home tomorrow. CARBON CAPTURE POWER PLANT MANAGER notified pt that she will not be [...] PODIATRY Patient Name: Tristin Powell MR #: [id number] : 1940 Physicians: Flash Lovelace MD (Family); [...] extremity. He eventually underwent intervention in the [place], [place] area in June and July of [...] Surgeon: Mohsen Sarabia MD; Location: [facility] NEURO OR; Service: Cardiovascular CARDIAC CATHETERIZATION Left 09/05/2018 Procedure: Angio Lower Extremity; Surgeon: Ben Hahn MD; Location: [facility] VENEREAL DISEASE CONTROL HEAD; Service: Cardiovascular CARDIAC SURGERY STENT PLACEMENT Family [...] PLT 234 09/10/2018 No results found for: ROAQ7ODk results found for: SEDRATE No results found [...] artery disease involving coronary bypass graft of alatna heart without angina pectoris ARTERIOSCLEROSIS OF CORONARY [...] Mod, Two person assist(x2 trials with FWW) Financial Reserve Clerk: Wheeled walker, 2 people, Gait belt Gait/Locomotion [...] medications Prior Level of Function Level of Wells: Independent with ADLs and functional transfers, Independent with homemaking with ambulation Lives With: Alone 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) Comments: planning to provide 20/03 assist from 7 kids Past Medical History: Diagnosis Date Avascular necrosis of bone of hip (HCC) Claudication (HCC) Herpes zoster Hyperlipidemia Hypertension Prostate cancer (HCC) Vascular disease Past Surgical History: Procedure Laterality Date ANKLE SURGERY Left BYPASS PERONEAL FEMORAL Right 09/07/2018 Procedure: BYPASS PERONEAL FEMORAL, RIGHT SAPHENOUS VEIN HARVEST, COMPLETION ANGIOGRAM; Surgeon: Mohsen Sarabia MD; Location: [facility] NEURO OR; Service: Cardiovascular CARDIAC CATHETERIZATION Left 09/05/2018 Procedure: Angio Lower Extremity; Surgeon: Ben Hahn MD; Location: [facility] VENEREAL DISEASE CONTROL HEAD; Service: Cardiovascular CARDIAC SURGERY STENT PLACEMENT For [...] roles. The patient's home setup is a tub attendant and family/caregiver support is a tub attendant for return to prior level of function. 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) Comments: planning to provide 20/03 assist from 7 kids Past Medical History: Diagnosis Date Avascular necrosis of bone of hip (HCC) Claudication (HCC) Herpes zoster Hyperlipidemia Hypertension Prostate cancer (HCC) Vascular disease Past Surgical History: Procedure Laterality Date ANKLE SURGERY Left BYPASS PERONEAL FEMORAL Right 09/07/2018 Procedure: BYPASS PERONEAL FEMORAL, RIGHT SAPHENOUS VEIN HARVEST, COMPLETION ANGIOGRAM; Surgeon: Mohsen Sarabia MD; Location: [facility] NEURO OR; Service: Cardiovascular CARDIAC CATHETERIZATION Left 09/05/2018 Procedure: Angio Lower Extremity; Surgeon: Ben Hahn MD; Location: [facility] VENEREAL DISEASE CONTROL HEAD; Service: Cardiovascular CARDIAC SURGERY STENT PLACEMENT For [...] yesterday. Patient seen in follow up by PLUMBER SUPERVISOR. See progress note. Associated Order(s): IP CONSULT TO PAIN TEAM ANCILLARY CONSULT NOTE Patient Name: Tristin Powell Admit Date: 1070905 MR #: [id number] : 1940 Consulting Physicians: [facility] Pain Service Assessment and Plan: Pain of left lower extremity Assessment & Plan . The patient did note that he becomes somewhat fatigued after taking medication, but he has not really been sleeping well. At this point, I think would be appropriate, since he has a plan for the operating room tomorrow, to put him on an opioid naive AGRICULTURAL COMMODITIES INSPECTOR. We will continue to monitor. I did talk extensively with the family about AGRICULTURAL COMMODITIES INSPECTOR safety and only allowing him to push the button. He does have quite a doting family and they all seem to be on board, understanding the safety concerns that this might present in the event that the patient is to sleep and someone is to press the button for him. We would see how his pain syndrome develops after surgery, but AGRICULTURAL COMMODITIES INSPECTOR is probably the appropriate treatment. I would [...] Name: Tristin Powell : 1940 MR #: [id number] Admit Date: 1070905 ----- Nicolas Addendum As below, 78 y.o. male with a h/o PAD, HTN, HLD, CAD s/p cardiac stent (x7, [id number]), CABG (x3vv, 2017; L [facility]), L ankle ORIF who p/w acute on chronic critical limb ischemia and claudication. Patient states he has been having claudication symptoms in bilateral lower extremities for the past 2-3 years. Patient states that although he has been active the past several months, his symptoms have progressively worsened. In June, the patient visited a quality improvement engineer to evaluate his left foot, in which [...] Dr. Sarabia. Miryam Rincon MD PGY-2 Surgery [phone] After 5pm and on Weekends, please page [phone] (Surgery Ground Crew Chief licensed occupational therapist) ----- Assessment and Plan: Tristin Powell is a 78 y.o. male with a PMH of PVD s/p LLE angio with stent placement 08/09, prostate cancer, PVD, CAD, HTN and a PSH of L ankle ORIF and thriple CABG in october 2016 with L saphenous vein harvested who presented to [facility] 09/04/2018 as a transfer from [place] for second opinion regarding left lower extremity pain and discoloration Chronic LLE ischemia - Patient underwent LLE angiogram with popliteal ballooning and stent 08/09/2018 in [place], sent on aspirin and xarelto - Angiography [...] prostate cancer presents as a transfer from [place] for concerns for left lower extremity pain [...] him sleep. While at the [facility] he was planned to [place] intervention the day of transfer but requested [facility] transfer for second opinion. Review of Systems: [...] 09/05/2018 Physician(s): Ben Hahn MD Cath #: [id number] Ref. 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 Dyslipidemia: Yes Hypertension: Yes Pre-OP Diagnosis/Indication: Midland Class/Limb Ischemia: 4 - Ischemic rest pain [...] amputation COMMENTS: No Complications ____ Equipment: Sheath(s) Ludia 5F 10CM PINNACLE SHEATH [employer] MEDICAL 6F 45CM .038 FLEXOR CHECKFLO ANSEL1 SHEATH Wire(s) [employer] .035 X 150CM FIXED J WIRE Catheter(s) [employer] 5F MP TEMPO AQUA CATHETER Other Aisle50 .035 CXI ANGLED SUPPORT CATHETERS SHER VASCULAR [...] Date: 09/05/2018 Non-Invasive Vascular Patient: SHERRY Bazan [facility] Rec#: [id number] (Age): 1940(78y) Study Date: 09/05/2018 Room#: G93 Type: Inpatient Sex: M Reading: Pierce Moreau DO RPVI Referring: LEVY Plant Production Manager: Rima Celestin RDCS, RVT Plant Production Manager: Deena Pelayo RDCS RVT Procedure Info: [id number] Study Quality: Lower Arterial Duplex: adequate Diagnosis: [...] PSV Name Value Units EIA 83.2 cm/sec ODD JOB WORKER 95.6 cm/sec Profunda 85.5 cm/sec SFA - prox -25 cm/sec SFA - mid -67.2 cm/sec SFA - dist 58.2 cm/sec Popliteal - dist 0 cm/sec SNATH HANDLE ASSEMBLER 6.8 cm/sec Pre Stenosis #1 9.3 cm/sec [...] Esau Alejandro MD General Surgery PGY-1 Pager [phone] *After 5pm, or on weekends, page [phone]* Associated attestation - Walker, Mohsen De Oliveira MD - 09/06/2018 4:46 PM EST Patient seen and examined. I have personally reviewed all pertinent labs, radiological studies and records. I have personally examined the patient and agree with resident/GAME ENGINEER/PA assessment and plan with the following additional [...] meantime. Associated Order(s): IP CONSULT TO CARDIOLOGY [facility] & Vascular Physicians Name: Tristin Powell Age: 78 y.o. Date: September 05, 2018 ASSESSMENT & PLAN: Critical lower limb ischemia Assessment & Plan Pt s/p LLE critical limb ischemia Midland class 4 rest pain with distal discoloration to his toes. Pt is s/p L pop angioplasty with stent placement 08/09 at [facility] in [place], [place]. Pt was placed on Xarelto and [...] artery disease involving coronary bypass graft of alatna heart without angina pectoris Assessment & Plan [...] ischemia. Pt s/p LLE critical limb ischemia Deann class 4 rest pain. Pt is s/p L pop angioplasty with stent placement 08/09 at [facility] in [facility] with Dr. Vogt. Pt was placed on Xarelto and ASA. Pt represented to [facility] 08/30 with increased LLE pain. Pt was scheduled to have a vascular surgical procedure at [facility] in [facility] and requested to be tx to [facility]. PAST MEDICAL HISTORY: Past Medical History: Diagnosis [...] to contact me. Respectfully, Yasmeen Diaz, MSN, GAME ENGINEER-C [facility] Heart and Vascular Physicians Associated attestation - Campos Guerra MD - 09/05/2018 11:01 AM EST [facility] V[facility] Physicians Vascular Staff: I saw and evaluated the patient with vascular team during inpatient rounds. I discussed the harper findings and I agree with assessment and plan as documented by our vascular PLUMBER SUPERVISOR. Mr. Tristin Powell is a 78 y.o. with male left lower extremity acute on chronic limb ischemia (Midland grade 1 viable limb): Patient is a [...] you for consulting vascular. Raulito Guerra MD [facility] Vascular Medicine [facility] Vascular 09/05/18 10:54 [...] assistance Transfers Sit to Stand: Contact guard Financial Reserve Clerk: Wheeled walker Gait/Locomotion Gait Assistance: Contact guard Assistive Device: Wheeled walker Distance: 5 Feet Pattern: L decreased step length Weight Bearing Status: Able to maintain, Non-weight bearing Home Living Type of Home: House Home Layout: One level Home Equipment: Walker, Wheeled Walker, Wheelchair-electric Prior Level of Function Level of Wells: Independent with ADLs and functional transfers, Independent with homemaking with ambulation Lives With: Alone Receives Help From: Family 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 Procedure: LEFT MIDFOOT AMPUTATION; Surgeon: Flynn Mann DPM; Location: [facility] OR; Service: Podiatry ANKLE SURGERY Left BYPASS PERONEAL FEMORAL Right 09/07/2018 Procedure: BYPASS PERONEAL FEMORAL, RIGHT SAPHENOUS VEIN HARVEST, COMPLETION ANGIOGRAM; Surgeon: Mohsen Sarabia MD; Location: [facility] NEURO OR; Service: Cardiovascular CARDIAC CATHETERIZATION Left 09/05/2018 Procedure: Angio Lower Extremity; Surgeon: Ben Hahn MD; Location: [facility] VENEREAL DISEASE CONTROL HEAD; Service: Cardiovascular CARDIAC SURGERY 2017 triple bypass [...] roles. The patient's home setup is a tub attendant and family/caregiver support is a tub attendant for return to prior level of function. The patient's compliance is a tub attendant and awareness of own capacity and performance is a tub attendant to return to prior level of function. [...] Wheelchair-electric Prior Level of Function Level of Wells: Independent with ADLs and functional transfers, Independent with homemaking with ambulation Lives With: Alone Receives Help From: Family 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 Procedure: LEFT MIDFOOT AMPUTATION; Surgeon: Flynn Mann DPM; Location: [facility] OR; Service: Podiatry ANKLE SURGERY Left BYPASS PERONEAL FEMORAL Right 09/07/2018 Procedure: BYPASS PERONEAL FEMORAL, RIGHT SAPHENOUS VEIN HARVEST, COMPLETION ANGIOGRAM; Surgeon: Mohsen Sarabia MD; Location: [facility] NEURO OR; Service: Cardiovascular CARDIAC CATHETERIZATION Left 09/05/2018 Procedure: Angio Lower Extremity; Surgeon: Ben Hahn MD; Location: [facility] VENEREAL DISEASE CONTROL HEAD; Service: Cardiovascular CARDIAC SURGERY 2017 triple bypass [...] Tristin Powell Admit Date: 2060905 MR #: [id number] : 1940 Physicians: Flash Lovelace MD (Family); [...] which time he was in [facility]. At that time he was found to [...] MIDFOOT AMPUTATION; Surgeon: Flynn Mann DPM; Location: [facility] OR; Service: Podiatry ANKLE SURGERY Left BYPASS PERONEAL FEMORAL Right 09/07/2018 Procedure: BYPASS PERONEAL FEMORAL, RIGHT SAPHENOUS VEIN HARVEST, COMPLETION ANGIOGRAM; Surgeon: Mohsen Sarabia MD; Location: [facility] NEURO OR; Service: Cardiovascular CARDIAC CATHETERIZATION Left 09/05/2018 Procedure: Angio Lower Extremity; Surgeon: Ben Hahn MD; Location: [facility] VENEREAL DISEASE CONTROL HEAD; Service: Cardiovascular CARDIAC SURGERY 2017 triple bypass [...] complete resolution. Findings suggestive of underlying COPD. [facility]/ Workstation ID: [id number] Us Doppler Ankle/brachial Index Result Date: 09/10/2018 Non-Invasive Vascular Patient: SHERRY Bazan [facility] Rec#: [id number] (Age): 1940(78y) Study Date: 09/10/2018 Room#: 8506 Type: Inpatient Sex: M Reading: [place] Reading: Ben Hahn MD, RPVI Referring: Esau Alejandro Plant Production Manager: Andre Madrid RDCS/RVLatricia Procedure Info: 47446 Study Quality: Lower Arterial Doppler: adequate Diagnosis: [...] Result Date: 10/08/2018 REPORT Patient: SHERRY Bazan [facility] Rec#: [id number] (Age): 1940(78y) Height: 188(cm)/73(in) Study Date: 10/08/2018 Weight: 99(kg)/218(lbs) Room#: 2456 BSA: [id number] Type: Inpatient [facility] Sex: M Reading: MD Nikhil Davalos Referring: AARON CHOI DANIEL Portrait Photographer: Geovani Matson RDCS, RVT History: Hyperlipidemia Hypertension. Valvular disease. Diagnosis: ICD-10-PCS Encounter for preprocedural cardiovascular examination (Z01.810) Cardiac Complications, not classified (997.1) CPT Code(s): ECHO COMPLETE W/ DOPPLER (77048) HCPCS Code C8923 Echo Full w/ contrast. [...] 0.9) PV peak gradient 3.23 mmHg none AK end-diastolic Vmax 1.41 m/sec none PA end-diastolic pressure 12.95 mmHg none PV acceleration time 77 msec none Electronically Signed at 10/08/2018 17:26:05 by: Emmanuel Connor MD [facility] Xr Ankle Left 3+ Views (standard) Result [...] of the distal fibula. Extensive vascular calcifications. WTTVtrip/[facility]anSiCs Workstation ID: [id number] Xr Foot Left 2 [...] the midfoot Chopart articulations. Surgical drain present. /[facility] Workstation ID: [id number] Xr Foot Left 3+ Views (standard) Result [...] of the distal fibula. Extensive vascular calcifications. WTW/[employer] Workstation ID: [id number] Assessment Detail: Associated attestation [...] further. Associated Order(s): IP CONSULT TO HOSPITALIST [facility] CONSULTATION NOTE Patient Name: Tristin Powell : 1940 MR #: [id number] Admit Date: 2060905 Physicians: Flash Lovelace MD (Family); Flynn Mann, Torres (Referring) Tristin Powell is a 78 y.o. male patient of Flash Lovelace MD with history of PAD, CAD and HTN that presented to [place] with need for left foot partial amputation. [...] Date: TBD Outpatient Testing: none Chief Complaint: [facility] consulted by Flynn Mann DPM for medical management History of Present Illness: This is a 78 y/o male with past medical history of PAD, CAD and HTN that presented to [place] with need for left foot partial amputation. [...] Surgeon: Mohsen Sarabia MD; Location: [facility] NEURO OR; Service: Cardiovascular CARDIAC CATHETERIZATION Left 09/05/2018 Procedure: Angio Lower Extremity; Surgeon: Ben Hahn MD; Location: [facility] VENEREAL DISEASE CONTROL HEAD; Service: Cardiovascular CARDIAC SURGERY STENT PLACEMENT Family [...] Information Primary Caregiver: Self Accompanied by/Relationship: none Rastafari/Cultural Factors: none Legal Documentation Advance Directives: (none) Resuscitation Status: Resuscitate Resources Financial Resources: Other (Comment)([employer] Medicare insurance confirmed) Community Resources: Other (Comment)(PCP Dr. Lovelace [phone]) Discharge Plan Shared UM/CC and RN Source of Information: Patient Contact Phone Number: emergency contact Amina Zaidi p:[phone] Living Arrangements: Alone Support Systems: Family members Functional Status: Independent Type of Residence: Private residence(1 floor plan) Prior to Admission Home Care Services: Yes Type of Current Home Care Services: Home health care Current Agency Name: [facility] Current Home Equipment: Walker, Wheeled walker, Toilet seat photo graphics librarian, Tub/Shower chair Insurance Coverage for Prescriptions: Yes [...] needs HH services for discharge. [facility] ph# [phone] / fx# [phone] Called agency and left a message requesting a return phone call to [phone] to confirm services. Faxed HH bundle to agency. Will need Amb HH order placed for physician to co-sign when final discharge needs are known. 0813 Received call from [facility]. Patient is current with them for PT/OT/RN services. [place] this encounter Machelle Cole, VAN - 09/05/2018 8:46 AM Machelle Robb, VAN - 09/05/2018 7:50 AM Donya More RN [...] Associated Order(s): ECG 12-LEAD ED PROVIDER NOTE [facility] EMERGENCY DEPARTMENT NAME: Tristin Powell AGE: 78 y.o. : 1940 VISIT DATE: 09/04/2018 CSN: [id number] PCP: Flash Lovelace MD Chief Complaint Patient presents with Blood Clot HPI Patient transferred from [facility] for left leg peripheral arterial disease and [...] the family requested to be transferred to [place] for a second opinion. Accepted by the [...] ST segments normal QRS axis: normal normal AK interval normal QRS interval QT Interval: 474 [...] Referral note: Call from Dann Chairez MD [phone] Contact Role: Referring Provider Entered By: VAN Bailey Dr states patient admitted / for left claudication and threatened limb. States patient was seen 08/09 for left foot pain and had angioplasty with stent placement to left popliteal. Pt started on Xarelto and ASA and discharged. Returned /3 for increased left foot and leg pain. No pulses. Pt was to have gone for vascular procedure today, but patient and family are now requesting transfer to a larger hospital and are requesting [place]. Call to VAN Reynolds [phone] Contact Role: Nurse Entered By: VAN Bailey RN states pt and family requesting [...] WNL. Will continue to monitor. TRISTIN POWELL [id number] 1940 DATE 09/07/2018 OPERATIVE REPORT SURGEON MOHSEN SARABIA MD RESEARCH NEUROPSYCHOLOGIST BEN JIANG MD PREOPERATIVE DIAGNOSIS Subacute limb ischemia of the left lower extremity. POSTOPERATIVE DIAGNOSIS Subacute limb ischemia of the left lower extremity. PROCEDURE PERFORMED Left femoral to peroneal bypass using contralateral reverse greater saphenous vein. RESEARCH NEUROPSYCHOLOGIST There was no qualified resident available to [...] cc. MOHSEN SARABIA MD D 09/09/2018 10:46 [id number] T 09/09/2018 14:36 JPW/MODL Brief Post Operative Note Patient Name: Tristin Powell : 1940 (78 y.o.) Date of Service: 09/04/2018 - 09/08/2018 [facility]: [id number] Procedure(s): BYPASS PERONEAL FEMORAL, RIGHT SAPHENOUS VEIN HARVEST, COMPLETION ANGIOGRAM Pre-Operative Diagnoses: * acute left lower extremity ischemia Post-Operative Diagnoses: * Same as Pre-Op Diagnosis Surgeon(s) and Role: * Mohsen Sarabia MD - Primary * Ben Jiang MD - Assisting Anesthesiologist: Natalie Vieira MD; Andrew Topete MD Records And Tape Recordings Engineer: Megan Arguelles RN; Odessa Cuellar RN Records And Tape Recordings Engineer Relief: Sakshi Silvestre RN; Ben Calvillo RN; [...] Implant Name Type Inv. Item Serial No. Lead Cargoman Lot No. LRB No. Used Action HEMOSTAT 2 X 4IN SURGICEL FIBRILLAR - [id number] HEMOSTAT 2 X 4IN SURGICEL FIBRILLAR ETHICON [id number] Left 1 Implanted Drain(s): Urethral Catheter Non-latex;Straight-tip [...] left lower extremity -Presented to [facility] 09/04/2018 as a transfer from [place] for second opinion regarding left lower extremity [...] in pain -Reports pain is uncontrolled with AGRICULTURAL COMMODITIES INSPECTOR Dilaudid pump, and pain does not decrease [...] CTS consult for tibial bypass Please call [phone] for questions (available 20/03) Discussed pt with jayashree Talley pt for a LLE angiogram due to [...] artery disease involving coronary bypass graft of alatna heart without angina pectoris Patient with remote coronary artery bypass grafting to 3 vessels. Patient denies chest pain at this time. Associated Problem(s): Critical lower limb ischemia Pt s/p LLE angiogram with Dr Hahn who feels that the pt has no further endovascular options. He has consulted Dr. Sarabia for a possible tibial bypass. Pt s/p LLE critical limb ischemia Midland class 4 rest pain with distal discoloration to his toes. Pt is s/p L pop angioplasty with stent placement 08/09 at [facility] in [place], [place]. Pt was placed on Xarelto and [...] [facility] Called report to Chelsea Salinas RN at the [place] [facility] [place]. Patient to follow-up GI outpatient. Patients pain [...] follow with Dr. Mann as out-patient at [facility] at [phone] next 10-18-18. Flynn Mann, SHIRLEY, FACFAS Electronically signed by the above physician 10/09/18 POC went over and updated, will continue to monitor. TIN GENAO [id number] 1940 DATE 10/08/2018 OPERATIVE REPORT SURGEON FLYNN MANN DPM RESEARCH NEUROPSYCHOLOGIST OFE WOOD DPM, RESIDENT ANESTHESIOLOGIST MACHELLE SARABIA MD PREOPERATIVE DIAGNOSIS Left foot gangrene. POSTOPERATIVE DIAGNOSIS Left foot gangrene. PROCEDURES 1. Left midfoot amputation at [facility] level 2. Left Tendo-Achilles lengthening 3. [...] RESIDENT FLYNN MANN DPM D 10/08/2018 08:53 [id number] T 10/08/2018 09:15 /MODL Brief Post Operative Note Patient Name: Tristin Powell : 1940 (78 y.o.) Date of Service: 10/08/2018 [facility]: [id number] Procedure(s): 1. TENDO ACHILLES LENGTHENING, LEFT 2. LEFT MIDFOOT AMPUTATION Pre-Operative Diagnoses: * LEFT FOOT GANGRENE Post-Operative Diagnoses: * SAME Surgeon(s) and Role: * Flynn Mann DPM - Primary * Ofe Wood DPM - Resident - Assisting Anesthesiologist: Machelle Sarabia MD SENIOR SALES ENGINEER: Nikia Mcdermott CRNA Records And Tape Recordings Engineer: Sussy Hoskins RN Relief Scrub: Wagner Qureshi [...] Tissue Amputation, Foot, Left TISSUE EXAM Flynn Mann, DPM 10/08/2018 0743 Implant(s): * No implants [...] for patient not ready . (6:45am), 10-06-18. . Will try again later today if able or Monday. in this encounter Care Teams (unrecognized sec tion and content) Team Status: Active Member Role Status Dates Flash Lovelace MD Primary Care Provider Active Team Status: Inactive Member Role Status Dates Flash Lovelace MD Primary Care Provider Active BERTA Pittman Attending Provider Active Button And Buckle Maker Relationship Specialty Start Date End Date Flash Lovelace MD [address] [place] [address] PCP - General Family Medicine 07/31/18 Button And Buckle Maker Relationship Specialty Start Date End Date Flash Lovelace MD [address] [place] [address] PCP - General Family Medicine 07/31/18 Button And Buckle Maker Relationship Specialty Start Date End Date Flash Lovelace MD [address] [place] [address], [place] [address] PCP - General Family Medicine 09/04/18 Button And Buckle Maker Relationship Specialty Start Date End Date Flash Lovelace MD [address] [place] [address], [place] [address] PCP - General Family Medicine 07/31/18 Button And Buckle Maker Relationship Specialty Start Date End Date Flash Lovelace MD [address] [place] [address], [place] [address] PCP - General Family Medicine 09/04/18 Button And Buckle Maker Relationship Specialty Start Date End Date Flash Lovelace MD [address] [place] [address], [place] [address] PCP - General Family Medicine 09/04/18 Button And Buckle Maker Relationship Specialty Start Date End Date Flash Lovelace MD [address] [place] [address], [place] [address] PCP - General Family Medicine 09/04/18 Button And Buckle Maker Relationship Specialty Start Date End Date Flash Lovelace MD [address] [place] [address], [place] [address] PCP - General Family Medicine 09/04/18 Button And Buckle Maker Relationship Specialty Start Date End Date Flash Lovelace MD [address] [place] [address], [place] [address] PCP - General Family Medicine 09/04/18 Team Status: Inactive Member Role Status Dates Flash Lovelace MD Primary Care Provider Active Cristian Beaver MD Attending Provider Active Button And Buckle Maker Relationship Specialty Start Date End Date Flash Lovelace MD [address] [place] [address], [place] [address] PCP - General Family Medicine 09/04/18 Button And Buckle Maker Relationship Specialty Start Date End Date Flash Lovelace MD [address] [place] [address] PCP - General Family Medicine 07/31/18 Button And Buckle Maker Relationship Specialty Start Date End Date Flash Lovelace MD [address] [place] [address], [place] [address] PCP - General Family Medicine 07/31/18 Button And Buckle Maker Relationship Specialty Start Date End Date Flash Lovelace MD [address] [place] [address], [place] [address] PCP - General Family Medicine 09/04/18 Button And Buckle Maker Relationship Specialty Start Date End Date Flash Lovelace MD [address] [place] [address], [place] [address] PCP - General Family Medicine 09/04/18 Button And Buckle Maker Relationship Specialty Start Date End Date Flash Lovelace MD [address] [place] [address] PCP - General Family Medicine 09/04/18 System, Provider Not In User Experience Designer 11/09/22 Button And Buckle Maker Relationship Specialty Start Date End Date Flash Lovelace MD [address] [place] [address] PCP - General Family Medicine 09/04/18 System, Provider Not In User Experience Designer 11/09/22 Button And Buckle Maker Relationship Specialty Start Date End Date Flash Lovelace MD [address] [place] [address], [place] [address] PCP - General Family Medicine 09/04/18 System, Provider Not In User Experience Designer 11/09/22 Button And Buckle Maker Relationship Specialty Start Date End Date Flash Lovelace MD [address] [place] [address] [place] [address] PCP - General Family Medicine 07/31/18 Button And Buckle Maker Relationship Specialty Start Date End Date Flash Lovelace MD [address] [facility] [place] [address] PCP - General Family Medicine 07/31/18 Team Status: Inactive Member Role Status Dates Flash Lovelace MD Primary Care Provider Active S tart: October 12, 2023 End: October 12, 2023 Cristian Beaver MD Attending Provider Active S tart: October 12, 2023 End: October 12, 2023 Team Status: Active Member Role Status Dates Flash Lovelace MD Primary Care Provider Active S tart: October 12, 2023 Critsian Beaver MD Attending Provider, Other Provider Active Start: October 12, 2023 Team Status: Inactive Member Role Status Dates Flash Lovelace MD Primary Care Provider Active S tart: October 17, 2023 End: October 17, 2023 Eliezer Juarez MD Attending Provider Active Start: October 17, 2023 End: October 17, 2023 Duke Dunbar MD Referring Provider Active Start: October 17, 2023 End: October 17, 2023 Button And Buckle Maker Relationship Specialty Start Date End Date Flash Lovelace MD [address] [facility] [address] [place] [address] PCP - [employer] 08/28/17 Flash Lovelace MD [address] [facility] [address] [place] [address] PCP - General Family Medicine 03/09/23 Button And Buckle Maker Relationship Specialty Start Date End Date Flash Lovelace MD [address] [facility] [address] [place] [address] PCP - [employer] 08/28/17 Flash Lovelace MD [address] [facility] [address] [place] [address] PCP - General Family Medicine 03/09/23Monday, Mary, CHUTE PULLER [address] [place] [address] Licensed Practical Nurse Family Medicine 06/21/24 Button And Buckle Maker Relationship Specialty Start Date End Date Flash Lovelace MD [address] [place] [address] PCP - [employer] 08/28/17 Flash Lovelace MD [address] [place] [address] PCP - General Family Medicine 03/09/23Monday, Mary, CHUTE PULLER [address] [place] [address] Licensed Practical Nurse Family Medicine 06/21/24 Button And Buckle Maker Relationship Specialty Start Date End Date Flash Lovelace MD [address] [place] [address] PCP - General Family Medicine 09/04/18 System, Provider Not In User Experience Designer 11/09/22 Button And Buckle Maker Relationship Specialty Start Date End Date Flash Lovelace MD [address] [place] [address] PCP - [employer] 08/28/17 Flash Lovelace MD [address] [place] [address] PCP - General Family Medicine 03/09/23 Button And Buckle Maker Relationship Specialty Start Date End Date Flash Lovelace MD [address] [place] [address] PCP - [employer] 08/28/17 Flash Lovelace MD [address] [place] [address] PCP - General Family Medicine 03/09/23 Button And Buckle Maker Relationship Specialty Start Date End Date Flash Lovelace MD [address] [place] [address] PCP - [employer] 08/28/17 Flash Lovelace MD [address] [place] [address] PCP - General Family Medicine 03/09/23Monday, ISABELLA Hernandez [address] [place] [address] Licensed Practical Nurse Family Medicine 06/21/24 Button And Buckle Maker Relationship Specialty Start Date End Date Flash Lovelace MD [address] [place] [address] PCP - General 08/15/13 Button And Buckle Maker Relationship Specialty Start Date End Date Flash Lovelace MD [address] [place] [address] PCP - General 08/15/13 Button And Buckle Maker Relationship Specialty Start Date End Date Flash Lovelace MD [address] [place] [address] PCP - [employer] 08/28/17 Flash Lovelace MD [address] [place] [address] PCP - General Family Medicine 03/09/23Monday, Mary, CHUTE PULLER [address] [place] [address] Licensed Practical Nurse Family Medicine 06/21/24 Button And Buckle Maker Relationship Specialty Start Date End Date Flash Lovelace MD [address] [place] [address] PCP - [employer] 08/28/17 Flash Lovelace MD [address] [place] [address] PCP - General Family Medicine 03/09/23 Button And Buckle Maker Relationship Specialty Start Date End Date Flash Lovelace MD [address] [place] [address] PCP - [employer] 08/28/17 Flash Lovelace MD [address] [place] [address] PCP - General Family Medicine 03/09/23 Button And Buckle Maker Relationship Specialty Start Date End Date Flash Lovelace MD [address] [place] [address] PCP - [employer] 08/28/17 Flash Lovelace MD [address] [place] [address] PCP - General Family Medicine 03/09/23 Button And Buckle Maker Relationship Specialty Start Date End Date Flash Lovelace MD [address] [place] [address] PCP - General Family Medicine 09/04/18 System, Provider Not In User Experience Designer 11/09/22 Button And Buckle Maker Relationship Specialty Start Date End Date Flash Lovealce MD [address] [place] [address] PCP - [employer] 08/28/17 Flash Lovelace MD [address] [place] [address] PCP - General Family Medicine 03/09/23MonMichaelMary goodman LPN [address] [place] [address] Licensed Practical Nurse Family Medicine 06/21/24 Button And Buckle Maker Relationship Specialty Start Date End Date Flash Lovelace MD [address] [place] [address] PCP - [employer] 08/28/17 Flash Lovelace MD [address] [place] [address] PCP - General Family Medicine 03/09/23 Lorraine Morgan, VAN Licensed Practical Nurse Family Medicine 10/04/24 Button And Buckle Maker Relationship Specialty Start Date End Date Flash Lovelace MD [address] [place] [address] PCP - [employer] 08/28/17 Flash Lovelace MD [address] [place] [address] PCP - General Family Medicine 03/09/23 Elaine Saab LPN 11/15/24 Button And Buckle Maker Relationship Specialty Start Date End Date Flash Lovelace MD [address] [place] [address] PCP - [employer] 08/28/17 Flash Lovelace MD [address] [place] [address] PCP - General Family Medicine 03/09/23 Elaine Saab LPN 11/15/24 Button And Buckle Maker Relationship Specialty Start Date End Date Flash Lovelace MD [address] [place] [address] PCP - [employer] 08/28/17 Flash Lovelace MD [address] [place] [address] PCP - General Family Medicine 03/09/23 [facility] 11/[facility]/24 Button And Buckle Maker Relationship Specialty Start Date End Date Flash Lovelace MD [address] [place] [address] PCP - Human 08/28/17 Flash Lovelace MD [address] [place] [address] PCP - General Family Medicine 03/09/23 [facility] 11/15/24 Button And Buckle Maker Relationship Specialty Start Date End Date Flash Lovelace MD [address] [place] [address] PCP - [facility] 08/28/17 Flash Lovelace MD [address] [place] [address] PCP - General Family Medicine 03/09/23 Elaine Saab [facility] 11/15/24 Button And Buckle Maker Relationship Specialty Start Date End Date Flash Lovelace MD [address] [place] [address] PCP - [facility] 08/28/17 Flash Lovelace MD [address] [place] [address] PCP - General Family Medicine 03/09/23 Elaine Saab, CHUTE PULLER [address] [facility] [address] [place] [address] 11/15/24 Team Status: Inactive Member Role Status Faisal Lovelace MD Primary Care Provider Active S tart: March 11, 2025 End: March 11, 2025 Cristian Beaver MD Attending Provider Active S tart: March 11, 2025 End: March 11, 2025 Team Status: Inactive Member Role Status Faisal Lovelace MD Primary Care Provider Active S tart: March 12, 2025 End: March 12, 2025 Cristian Beaver MD Attending Provider Active S tart: March 12, 2025 End: March 12, 2025 Button And Buckle Maker Relationship Specialty Start Date End Date Flash Lovelace MD [address] [place], [place] [address] PCP - General Family Medicine 09/04/18 System, Provider Not In User Experience Designer 11/09/22 Button And Buckle Maker Relationship Specialty Start Date End Date Flash Lovelace MD [address] [place], [place] [address] PCP - General Family Medicine 09/04/18 System, Provider Not In User Experience Designer 11/09/22 Button And Buckle Maker Relationship Specialty Start Date End Date Flash Lovelace MD [address] [place], [place] [address] PCP - General Family Medicine 09/04/18 System, Provider Not In User Experience Designer 11/09/22 Button And Buckle Maker Relationship Specialty Start Date End Date Flash Lovelace MD [address] [place] [address] PCP - General Family Medicine 09/04/18 System, Provider Not In User Experience Designer 11/09/22 Button And Buckle Maker Relationship Specialty Start Date End Date Flash Lovelace MD [address] [place] [address] PCP - [employer] 08/28/17 Flash Lovelace MD [address] [place] [address] PCP - General Family Medicine 03/09/23 Elaine Saab LPN [address] [place] [address] 11/15/24 Button And Buckle Maker Relationship Specialty Start Date End Date Flash Lovelace MD [address] [place] [address] PCP - General Family Medicine 09/04/18 System, Provider Not In User Experience Designer 11/09/22 Button And Buckle Maker Relationship Specialty Start Date End Date Flash Lovelace MD [address] [place] [address] PCP - [employer] 08/28/17 Flash Lovelace MD [address] [place] [address] PCP - General Family Medicine 03/09/23 Elaine Saab LPN [address] [place] [address] 11/15/24 Button And Buckle Maker Relationship Specialty Start Date End Date Flash Lovelace MD [address] [place] [address] PCP - [employer] 08/28/17 Flash Lovelace MD [address] [place] [address] PCP - General Family Medicine 03/09/23 Elaine Saab LPN [address] [place] [address] 11/15/24 Button And Buckle Maker Relationship Specialty Start Date End Date Flash Lovelace MD [address] [place] [address] PCP - [employer] 08/28/17 Flash Lovelace MD [address] [place] [address] PCP - General Family Medicine 03/09/23 Elaine Saab LPN [address] [place] [address] 11/15/24 Button And Buckle Maker Relationship Specialty Start Date End Date Flash Lovelace MD [address] [place] [address] PCP - [employer] 08/28/17 Flash Lovelace MD [address] [place] [address] PCP - General Family Medicine 03/09/23 Elaine Saab LPN [address] [place] [address] 11/15/24 Button And Buckle Maker Relationship Specialty Start Date End Date Flash Lovelace MD [address] [place] [address] PCP - [employer] 08/28/17 Flash Lovelace MD [address] [place] [address] PCP - General Family Medicine 03/09/23 Saab, Elaine, CHUTE PULLER [address] [place] [address] 11/15/24 Button And Buckle Maker Relationship Specialty Start Date End Date Flash Lovelace MD [address] [place] [address] PCP - [employer] 08/28/17 Flash Lovelace MD [address] [place] [address] PCP - General Family Medicine 03/09/23 Elaine Saab LPN [address] [place] [address] 11/15/24 Button And Buckle Maker Relationship Specialty Start Date End Date Flash Lovelace MD [address] [place] [address] PCP - General Family Medicine 09/04/18 System, Provider Not In User Experience Designer 11/09/22 Button And Buckle Maker Relationship Specialty Start Date End Date Flash Lovelace MD [address] [place] [address] PCP - [employer] 08/28/17 Flash Lovelace MD [address] [place] [address] PCP - General Family Medicine 03/09/23 Elaine Saab LPN [address] [place] [address] 11/15/24 Button And Buckle Maker Relationship Specialty Start Date End Date Flash Lovelace MD [address] [place] [address] PCP - [employer] 08/28/17 Flash Lovelace MD [address] [place] [address] PCP - General Family Medicine 03/09/23 Elaine Saab LPN [address] [place] [address] 11/15/24 Button And Buckle Maker Relationship Specialty Start Date End Date Flash Lovelace MD [address] [place] [address] PCP - [employer] 08/28/17 Flash Lovelace MD [address] [facility] [address] [place] [address] PCP - General Family Medicine 03/09/23 Elaine Saab LPN [address] [facility] [address] [place] [address] 11/15/24 Team Status: Active Member Role Status Dates Flash Lovelace MD Primary Care Provider Active S tart: March 12, 2025 Cristian Beaver MD Other Provider Active Start : March 12, 2025 Beena Negron MD Attending Provider Active Start: March 12, 2025 Team Status: Active Member Role Status Dates Flash Lovelace MD Primary Care Provider Active S tart: May 02, 2025 Muna Greene DO Emergency Provider Active St art: May 02, 2025 Adiel Mccollum MD Admit Provider Active Sta rt: May 02, 2025 Adiel Mccollum MD Attending Provider Active Start: May 02, 2025 Team Status: Active Member Role Status Dates Flash Lovelace MD Primary Care Provider Active S tart: May 04, 2025 Muna Greene DO Emergency Provider Active St art: May 04, 2025 Adiel Mccollum MD Admit Provider Active Sta rt: May 04, 2025 Milvia Vang APRN [facility] Other Provider Active Start: May 04, 2025 Richie Woodward MD Other Provider Active Start: May 04, 2025 Jesse Barry MD Other Provider Active St art: May 04, 2025 Randall Valdez MD Other Provider [facility] Ramana Gonzalez DO Other Provider Active Start: May 04, 2025 Joyce Orourke MD Other Provider Active [facility] Misael Quinn MD Other Provider Active Start: S [facility] 2024 Yudelka Martines MD Attending Provider Active Start: May 04, 2025 Yudelka Martines MD Other Provider Active Start: May 04, 2025 Ben Reddy DO Other Provider Active Start: May 04, 2025 Button And Buckle Maker Relationship Specialty Start Date End Date Flash Lovelace MD [address] [place] [address] PCP - General Family Medicine 07/31/18 Button And Buckle Maker Relationship Specialty Start Date End Date Flash Lovelace MD [address] [place] [address] PCP - General Family Medicine 07/31/18 Scheduled Active and Recently Administ ered Medications (unrecognized section and content) Medication Order 01/19/2022 01/20/2022 01/21/2022 acetaminophen (TYLENOL) tablet 975 mg (COMPLETED) 975 mg, Oral, Once, On Mon01/18/22 at 2330, For 1 dose 0026 (Given - Provider: Mary Robles, VAN) aspirin chewable tablet 81 mg 81 mg, Oral, Daily, First dose on Mon01/19/22 at 0900 0951 (Given - Provider: Maude Vallejo, VAN) 0932 (Given - Provider: Rafaela Negron RN) 0950 (Given - Provider: Alma Delia Page, VAN) atorvastatin (LIPITOR) tablet 40 mg 40 mg, Oral, Daily, First dose on Mon01/19/22 at 0900 0951 (Given - Provider: Maude Vallejo, VNA) 0932 (Given - Provider: Rafaela Negron RN) 0950 (Given - Provider: Alma Delia Page, VAN) docusate sodium (COLACE) capsule 100 mg 100 [...] RN)1415 (Given - Provider: Alma Delia Page, VAN) losartan (COZAAR) tablet 50 mg 50 mg, [...] RN) 0950 (Given - Provider: Alma Delia Page, VAN) pantoprazole (PROTONIX) EC tablet 40 mg 40 mg, Oral, Daily, First dose on Mon01/19/22 at 0900, DO NOT CRUSH OR CHEW. 0951 (Given - Provider: Maude Vallejo RN) 0932 (Given - Provider: Rafaela Negron, VAN) 0950 (Given - Provider: Alma Delia Page [...] 0951 (Given - Provider: Alma Delia Page, VAN) vancomycin (VANCOCIN) 1750 mg in sodium chloride 0.9% (NS) 500 mL IVPB 1,750 mg, Intravenous, at 250 mL/hr, Every 18 hours, First dose (after last modification) on Prerna 01/20/22 at 1215, Indication: Cellulitis Not Responding to Beta-lactams 1223 (New Bag - Provider: Rafaela Negron, RN)1430 (Stopped - Provider: Rafaela Negron, RN) 0726 (New Bag - Provider: Kiesha Mosquera, RN) PRN Medication Order 01/19/2022 01/20/2022 01/21/2022 acetaminophen (TYLENOL) tablet 650 mg 650 mg, Oral, Every 4 hours PRN, mild pain, fever 100.4 F or greater, headaches, Starting on Mon01/19/22 at 0008 2020 (Given - Provider: Kiesha Mosquera, RN) iopamidoL (ISOVUE-370) 76 % injection 125 [...] at 0009 2235 (Given - Provider: Kiesha Mosquera, VAN) naloxone (NARCAN) injection 0.1 mg(Linked Group 2) [...] For 3 doses, Anginal pain, may repeat [id number] x3, then notify physician. DO NOT CRUSH [...] Stuart RN)2220 (Given - Provider: Kiesha Mosquera, VAN) 0658 (Given - Provider: Kiesha Mosquera, VAN)1218 (Given - Provider: Rafaela Negron, VAN)2111 (Given - Provider: Kiesha Mosquera RN) oxymetazoline [...] mL, Intravenous, Once in imaging, contrast, Per newscast director (Radiology) for line patency check prior to contrast administration, Starting on Mon01/19/22 at 0048, For 1 dose sodium chloride (PF) (NS) 0.9 % contrast line flush 80 mL(Linked Group 4) 80 mL, Intravenous, Once in imaging, contrast, Per newscast director (Radiology), Starting on Mon01/19/22 at 0048, For [...] mL, Intravenous, Once in imaging, contrast, Per newscast director (Radiology) for line patency check prior to contrast administration, Starting on Mon01/19/22 at 0048, For 1 dose And sodium chloride (PF) (NS) 0.9 % contrast line flush 80 mLJump to med 80 mL, Intravenous, Once in imaging, contrast, Per newscast director (Radiology), Starting on Mon01/19/22 at 0048, For [...] Prerna 04/14/22 at 2120, For 1 dose 0 (Given - Provider: Rose Bautista RN) gabapentin [...] Mane Akins RN)1014 (Given - Provider: Mirta Huetra, RN)1400 (Not Given - Provider: Mirta Huerta RN - Reason: Other) PRN Medication Order 04/13/2022 04/14/2022 04/15/2022 acetaminophen (TYLENOL) tablet 650 mg 650 mg, Oral, Every 4 hours PRN, mild pain, fever 100.4 F or greater, headaches, Starting on Mon04/15/22 at 0101 albuterol inhaler 2 puff 2 puff, Inhalation, Every 4 hours PRN, wheezing, shortness of breath, Starting on Mon04/15/22 at 0101, SPACER REQUIRED FOR ADMINISTRATION iopamidoL (ISOVUE-370) 76 % injection 125 mL (COMPLETED) 125 mL, Intravenous, Once in imaging, contrast, Starting on Prerna 04/14/22 at 2111, For 1 dose 0 (Contrast Administered - Provider: Beena Yates, TECHNOLOGIST) iopamidoL (ISOVUE-370) 76 % injection 75 mL 75 mL, Intravenous, Once in imaging, contrast, Starting on Prerna 04/14/22 at 2110, For 1 dose naloxone (NARCAN) [...] RN)1910 (See Alternative - Provider: Lizz Damon, VAN) ondansetron (ZOFRAN-ODT) disintegrating tablet 4 mg(Linked Group 3) 4 mg, Oral, Every 6 hours PRN, nausea, vomiting, Starting on Mon04/15/22 at 0101, Use oral route first, if tolerated. Formulation requires tablet remain in sealed package until immediately prior to dose being administered. 0614 (Given - Provid er: Mane Akins RN)1422 (Given - Provider: Mirta Huerta RN)191 (Given - Provider: Lizz Damon, VAN) oxyCODONE-acetaminophen (PERCOCET) 5-325 mg per tablet 1 tablet 1 tablet, Oral, Every 6 hours PRN, moderate to severe pain, Starting on Mon04/15/22 at 0101 0126 (Given - Provid er: Mane Akins RN) sodium chloride (PF) (NS) 0.9 % contrast line flush 10 mL (COMPLETED) 10 mL, Intravenous, Once in imaging, contrast, Per newscast director (Radiology) for line patency check prior to contrast administration, Starting on Mon04/14/22 at 2110, For 1 dose 2131 (Given - Provider: Beena Yates, TECHNOLOGIST) sodium chloride (PF) (NS) 0.9 % contrast line flush 80 mL (COMPLETED) 80 mL, Intravenous, Once in imaging, contrast, Per newscast director (Radiology), Starting on Mon04/14/22 at 2110, For [...] 0928 (Given - Provider: Andree Agarwal RN) atorvastatin (LIPITOR) tablet 40 mg 40 mg, Oral, Nightly, First dose on Mon11/04/22 at 2100 2019 (Given - Provider: Meir Nath RN) 2022 (Given - Provider: Meir Nath RN) benzonatate (TESSALON) capsule 100 mg 100 mg, Oral, 3 times daily, First dose (after last reorder) on Mon11/04/22 at 1045, DO NOT CRUSH OR CHEW. 0834 (Given - Provider: Terri Mackenzie RN)1659 (Given - Provider: Terri Mackenzie RN)2019 (Given - Provider: Meir Nath RN) 0859 (Given - Provider: Cara Dorado, VAN)1556 (Given - Provider: Cara Dorado, VAN)2022 (Given - Provider: Meir Nath RN) 0928 (Given - Provider: Andree Agarwal, VAN) budesonide-formoteroL (SYMBICORT) 160-4.5 mcg/actuation inhaler 2 puff(Linked Group 1) 2 puff, Inhalation, 2 times daily (RT), First dose on Mon11/03/22 at 2230 0836 (Given - Provider: Terri Mackenzie RN)2019 (Given - Provider: Meir Nath RN) 0904 (Given - Provider: Cara Dorado, VAN)2023 (Given - Provider: Meir Nath RN) 0929 (Given - Provider: Andree Agarwal, VAN) cefePIMe-dextrose (MAXIPIME) 2 gram/50 mL IVPB 2,000 mg 2,000 mg, Intravenous, at 100 mL/hr, Every 12 hours, First dose on Mon11/04/22 at 1000, Indication: HAP/VAP 1138 (New Bag - Provider: Terri Mackenzie RN)2247 (New Bag - Provider: Meir Nath, AVN)2252 (Paused - Provider: Meir Nath, VAN)2253 (Restarted - Provider: Meir Nath, VAN)2319 (Stopped - Provider: Meir Nath, VAN) 1139 (New Bag - Provider: Cara Dorado RN)2138 (New Bag - Provider: Meir Nath RN) 1037 (New Bag - Provider: Andree Agarwal RN) docusate sodium (COLACE) capsule 100 mg 100 mg, Oral, Daily, First dose on 11/07/22 at 1900, Hold for loose stools DO NOT CRUSH OR CHEW. 1835 (Given - Provider: Cara Dorado, VAN) 0928 (Given - Provider: Andree Agarwal, VAN) furosemide (LASIX) injection 20 mg (CANCELED) 20 mg, Intravenous, 2 times daily before meals, First dose on Mon11/04/22 at 0730 0833 (Given - Provider: Terri Mackenzie, VAN)1659 (Given - Provider: Terri Mackenzie, VAN) 0900 (Given - Provider: Cara Dorado, VAN) furosemide (LASIX) tablet 20 mg 20 mg, Oral, Daily, First dose on Mon11/08/22 at 0900 0928 (Given - Provider: Andree Agarwal, VAN) ipratropium-albuteroL (DUO-NEB) 0.5-2.5 mg/3 ml nebulizer solution 3 mL 3 mL, Inhalation, Every 6 hours scheduled (RT), First dose on Mon11/03/22 at 2230 0345 (Not Given - Provider: Gisella Pyle, BEFORE SCHOOL BABYSITTER - Reason: Patient/family refused - Comment: Patient doesn't want his treatment throughout the night)0800 (Not Given - Provider: Sussy Rocha, BEFORE SCHOOL BABYSITTER - Reason: Patient not available)1515 (Given - Provider: Andrew Milan, PRINCIPAL BIOSTATISTICIAN)2012 (Given - Provider: Claire Ireland, BEFORE SCHOOL BABYSITTER) 0200 (Not Given - Provider: Claire Ireland, BEFORE SCHOOL BABYSITTER - Reason: Patient/family refused)0828 (Given - Provider: Sussy Rocha, BEFORE SCHOOL BABYSITTER)1400 (Given - Provider: Sussy Rocha, BEFORE SCHOOL BABYSITTER)2025 (Given - Provider: Claire Ireland, BEFORE SCHOOL BABYSITTER) 0200 (Not Given - Provider: Claire Ireland, BEFORE SCHOOL BABYSITTER - Reason: Patient/family refused)0800 (Not Given - Provider: Jesse Ferraro BEFORE SCHOOL BABYSITTER - Reason: Other - Comment: patient wanted to eat/wait till next round)1400 (Due) losartan (COZAAR) tablet 50 mg (CANCELED) 50 mg, Oral, Daily with lunch, First dose on Mon11/04/22 at 1200 1351 (Given - Provider: Terri Mackenzie, VAN) metoprolol tartrate (LOPRESSOR) tablet 50 mg 50 mg, Oral, 2 times daily, First dose on Prerna 11/03/22 at 2230 0833 (Given - Provider: Terri Mackenzie RN)2020 (Given - Provider: Meir Nath RN) 0900 (Given - Provider: Cara Dorado, VAN)2022 (Given - Provider: Meir Nath RN) 09 (Given - Provider: Andree Agarwal, VAN) pantoprazole (PROTONIX) EC tablet 40 mg 40 mg, Oral, 2 times daily, First dose on Prerna 11/03/22 at 2230, DO NOT CRUSH OR CHEW. 0833 (Given - Provider: Terri Mackenzie RN)2019 (Given - Provider: Meir Nath RN) 0859 (Given - Provider: Cara Dorado RN)2022 (Given - Provider: Meir Nath RN) 09 (Given - Provider: Andree Agarwal RN) perflutren [...] 17 g, Oral, Daily, First dose on 11/06/22 at 0900 1136 (Given - Provider: Terri Mackenzie, VAN) 09 (Given - Provider: Cara Dorado RN) 09 (Given - Provider: Andree Agarwal, VAN) rivaroxaban (XARELTO) tablet 2.5 mg 2.5 mg, Oral, 2 times daily, First dose (after last modification) on Mon11/04/22 at 0800, Must be given with food. Notify physician if patient refuses. If feeding tube administration, give only via tubes placed in the stomach., Indication: CAD/PAD 0833 (Given - Provider: Terri Mackenzie, RN)2019 (Given - Provider: Meir Nath, RN) 0859 (Given - Provider: Cara Dorado, VAN)2022 (Given - Provider: Meir Nath, VAN) 0928 (Given - Provider: Andree Agarwal, RN) sodium chloride (OCEAN) 0.65 % nasal spray 1 spray 1 spray, Each Nare, 2 times daily, First dose (after last modification) on Mon11/07/22 at 2100, Upright delivers a spray; Horizontally a stream; Upside down a drop. 2100 (Not Given - Provider: Meir Nath RN - Reason: Patient/family refused) 0900 (Not Given - Provider: Andree Agarwal, VAN - Reason: Other - Comment: pt states he uses as needed) sodium chloride (PF) (NS) flush 5 mL(Linked Group 2) 5 mL, Intravenous, Every 8 hours scheduled, First dose on Mon11/03/22 at 2230, Saline lock 0527 (Given - Provider: Misty Ponce RN)1659 (Given - Provider: Terri Mackenzie, VAN)2200 (Canceled Entry - Provider: Meir Nath, VAN) 0625 (Given - Provider: Meir Nath, VAN)1400 (Canceled Entry - Provider: Cara Dorado, VAN)2138 (Given - Provider: Meir Nath, VAN) 0615 (Given - Provider: Meir Nath, VAN)1400 (Due) tiotropium bromide (SPIRIVA RESPIMAT) 2.5 mcg/actuation inhaler 2 puff(Linked Group 1) 2 puff, Inhalation, Daily (RT), First dose on Mon11/04/22 at 0900 0835 (Given - Provider: Terri Mackenzie, VAN) 0904 (Given - Provider: Cara Dorado, VAN) 0929 (Given - Provider: Andree Agarwal, VAN) PRN Medication Order 11/06/2022 11/07/2022 11/08/2022 aluminum-magnesium [...] 1000 0525 (Given - Provider: Misty Ponce, VAN)1253 (Given - Provider: Terri Mackenzie, VAN)2242 (Given - Provider: Meir Nath RN) sodium [...] the secondary infusion, Starting on Mon11/03/22 at 2228, Run as Primary IV. NOT [...] PRN, nausea, vomiting, Starting on Mon11/03/22 at 2227
Use oral route first, if tolerated. Formulation requires tablet remain in sealed package until immediately prior to dose being administered.
Or ondansetron (ZOFRAN) injection 4 mgJump to med 4 mg, Intravenous, Every 6 hours PRN, nausea, vomiting, Starting on Mon11/03/22 at 2227
Use oral route first, if [...] IntraVENous, DAILY, First dose on Mon10/30/22 at 1945 1940 (Given - Provid er: [...] IntraVENous, DAILY, First dose on Mon10/30/22 at 1945 1940 (Given - Provid er: Jose Panchal RN) Scheduled Medication Order 03/19/2025 03/20/2025 03/21/2025 acetaminophen (TYLENOL) tablet 650 mg 650 mg, Oral, Every 4 hours while awake, First dose on Mon03/14/25 at 1500 0614 (Given - Provider: Jeremy Merchant, RN)1126 (Given - Provider: Dashawn Cano RN)1431 (Given - Provider: Dashawn Cano RN)1816 (Given - Provider: Dashawn Cano RN)2117 (Given - Provider: Zenobia Clay, VAN) 0536 (Given - Provider: Zenobia Clay RN)1118 (Given - Provider: Kaylie Denny, VAN)1400 (Hold - Provider: Kaylie Denny, VAN - Reason: Other - Comment: patient sleeping)1751 (Given - Provider: Kaylie Denny, VAN)2157 (Given - Provider: China Negro RN) 0550 (Given - Provider: China Negro RN)1111 (Given - Provider: Katie Pino, VAN)1400 (Not Given - Provider: Katie Pino RN - Reason: Order parameters not met)1800 (Due) aspirin EC tablet 81 mg 81 mg, Oral, Daily, First dose on Mon03/14/25 at 1635, DO NOT CRUSH OR CHEW. 0837 (Given - Provider: Dashawn Cano RN) 0815 (Given - Provider: Kaylie Denny, VAN) 0831 (Given - Provider: Katie Pino, VAN) atorvastatin (LIPITOR) tablet 80 mg 80 mg, [...] RN) 0813 (Given - Provider: Kaylie Denny, VAN) 0832 (Given - Provider: Katie Pino, VAN) cyclobenzaprine (FLEXERIL) tablet 10 mg (CANCELED) 10 mg, Oral, Every 8 hours scheduled, First dose on Mon03/17/25 at 2200 0614 (Given - Provider: Jeremy Merchant, RN)1431 (Given - Provider: Dashawn Cano RN)2117 (Given - Provider: Zenobia Clay, RN) 0536 (Given - Provider: Zenobia Clay RN)1400 (Hold - Provider: Kaylie Denny RN - Reason: Patient/family refused - Comment: states makes him feel loopy asn asks to hold/discontinue order) furosemide (LASIX) tablet 20 mg 20 mg, Oral, Every other day, First dose on 03/15/25 at 0900 0838 (Given - Provider: Dashawn Cano RN) 0831 (Given - Provider: Katie Pino RN) losartan (COZAAR) tablet 50 mg 50 mg, Oral, Daily with lunch, First dose on 03/15/25 at 1200, Please hold if mean arterial pressure (MAP) is less than 65 1126 (Not Given - Provider: Dashawn Cano RN - Reason: Order parameters not met - Comment: MAP 64) 1118 (Given - Provider: Kaylie Denny RN) 1111 (Given - Provider: Katie Pino RN) metoprolol tartrate (LOPRESSOR) tablet 50 mg 50 mg, Oral, 2 times daily, First dose on Mon03/14/25 at 2200, Please hold if mean arterial pressure (MAP) is less than 65 and/or HR is less than 60 0837 (Given - Provider: Dashawn Cano RN)2117 (Given - Provider: Zenobia Clay RN - Comment: BP 134/44, MAP 67, HR 88) 0812 (Given - Provider: Kaylie Denny, VAN)2157 (Given - Provider: China Negro RN) 0831 (Given - Provider: Katie Pino RN) pantoprazole (PROTONIX) EC tablet 40 mg 40 mg, Oral, Daily, First dose on 03/15/25 at 0900, DO NOT CRUSH OR CHEW. 0838 (Given - Provider: Dashawn Cano RN) 0812 (Given - Provider: Kaylie Denny, VAN) 0831 (Given - Provider: Katie Pino, RN) polyethylene glycol (MIRALAX) powder 17 g 17 g, Oral, Daily, First dose on Mon03/15/25 at 0900 0837 (Given - Provider: Dashawn Cano RN) 0900 (Hold - Provider: Kaylie Denny RN - Reason: Patient/family refused) 0831 (Given - Provider: Katie Pino, VAN) rivaroxaban (XARELTO) tablet 2.5 mg 2.5 mg, Oral, 2 times daily, First dose on Mon03/18/25 at 1300, Give with food if possible. Notify physician if patient refuses. If feeding tube administration, give only via tubes placed in the stomach., Indication: CAD/PAD 0839 (Given - Provider: Dashawn Cano RN)191 (Given - Provider: Zenobia Clay, VAN) 0812 (Given - Provider: Kaylie Denny, VAN)193 (Given - Provider: China Negro, VAN) 0831 (Given - Provider: Katie Pino, VAN) tamsulosin (FLOMAX) 24 hr capsule 0.4 mg 0.4 mg, Oral, After evening meal, First dose on Mon03/15/25 at 1800, DO NOT CRUSH OR CHEW. Give 30 minutes after the same meal daily. Monitor for orthostasis due to potential risk of syncope. 1816 (Given - Provider: Dashawn Cano RN) 1751 (Given - Provider: Kaylie Denny, VAN) 1800 (Due) zolpidem (AMBIEN) tablet 10 mg 10 mg, Oral, Nightly, First dose on Mon03/14/25 at 2200 2117 (Given - Provider: Zenobia Clay, VAN) 2156 (Given - Provider: China Negro, VAN) Continuous Medication Order 03/19/2025 03/20/2025 03/21/2025 sodium [...] Food 1938 (Given - Provider: China Negro, VAN) HYDROmorphone (DILAUDID) injection 1 mg (CANCELED) 1 mg, Intravenous, Every 3 hours PRN, breakthru pain not controlled by PO, Starting on Mon03/17/25 at 1024 0631 (Given - Provider: Jeremy Merchant, VAN) lidocaine HCL (UROJET/GLYDO) 2 % applicator 1 [...] physician. 0105 (Given - Provider: Jeremy Merchant, RN)1919 (Given - Provider: Zenobia Clay, RN) 0812 (Given - Provider: Kaylie Denny, VAN)1753 (Given - Provider: Kaylie Denny, VAN) 1149 (Given - Provider: Katie Pino RN) [...] May be crushed if given via tube. 175 (Given - Provider: Kaylie Denny, VAN) sodium chloride (OCEAN) 0.65 % nasal spray [...] NOT intended for KVO. Scheduled Medication Order 05/11/2025 05/12/2025 05/13/2025 aspirin chewable tablet 81 mg 81 mg, Oral, DAILY, First dose on Mon05/09/25 at 0900, Until Discontinued 0900 (Automatically Held) 0808 (Unheld by provider - Provider: Rafaela Garcia MD)1044 (Given - Provider: Terrie Hunt RN) 0921 (Given - Provider: Terrie Hunt RN) Atorvastatin (LIPITOR) tablet 80 mg 80 mg, Oral, DAILY, First dose on Mon05/09/25 at 0900, Until Discontinued 1002 (Given - Provider: Tameka Wells RN) 1051 (Given - Provider: Terrie Hunt RN) 1119 (Given - Provider: Terrie Hunt RN) ceFEPIme (MAXIPIME) 2 g in dextrose 100 ml premix IVPB (CANCELED) 2 g, Intravenous, Administer over 4 Hours, EVERY 8 HOURS NON-STANDARD, First dose on Mon05/09/25 at 0600, Until Discontinued, Infuse STAT doses over 30 minutes. Infuse other doses over 4 hours., On hold since Mon05/12/2025 at 0808 until manually unheld 0055 ($$New Bag$$ - Provider: Heladio Sandra RN)0600 (Stopped - Provider: Heladio Sandra RN)1155 ($$New Bag$$ - Provider: Tameka Wells RN - Comment: no iv site)180 ($$New Bag$$ - Provider: Tiana Storm RN - Comment: late on previous dose)183 (Paused - Provider: Terrie Hunt RN)1838 (Restarted - Provider: Terrie Hunt RN)2017 (Paused - Provider: Terrie Hunt RN)2026 (Restarted - Provider: Terrie Hunt RN)2027 (Stopped - Provider: Terrie Hutn RN)2303 (Not Given - Provider: Solitario Gonzalez RN - Reason: Patient/family refused) 0803 (Not Given - Provider: Terrie Hunt RN - Reason: Patient/family refused)0808 (Held by provider - Provider: Rafaela Garcia MD - Reason: Other)1010 (Unheld by provider - Provider: Rafaela Garcia MD) collagenase (SANTYL) ointment 1 Application 1 Application, Topical, DAILY, First dose on Mon05/09/25 at 0900, Until Discontinued, Patient may self-administer. Apply to foot wound 1156 (Given - Provider: Tameka Wells RN) 1052 (Given - Provider: Terrie Hunt RN) 0900 (Canceled Entry - Provider: System Discharge - Comment: Automatically canceled at discontinue of medication order) Ipratropium-albuterol (DUONEB) 0.5-2.5 (3) MG/3ML nebulizer solution 3 mL 3 mL, Nebulization, EVERY 6 HOURS, First dose on Mon05/09/25 at 0800, Until Discontinued 0233 (Given - Provider: Ben Stewart RCP)0823 (Given - Provider: Samuel Kenyon, [employer] Permit [employer])1434 (Given - Provider: Samuel Kenyon, [employer])2139 (Given - Provider: Sindy Swann RCP) 0245 (Not Given - Provider: Ben Stewart RCP - Reason: Patient/family refused)0759 (Given - Provider: Radha Bucio RCP)1220 (Given - Provider: Radha Bucio RCP)2006 (Given - Provider: Ben Stewart RCP) 0140 (Given - Provider: Ben Stewart RCP)0821 (Given - Provider: Jessie Walton RCP)1319 (Not Given - Provider: Jessie Walton RCP - Reason: Patient not available - Comment: not it room) Losartan (COZAAR) tablet 25 mg 25 mg, Oral, DAILY, First dose on Mon05/09/25 at 0900, Until Discontinued 1002 (Given - Provider: Tameka Wells RN) 1044 (Given - Provider: Terrie Hunt RN) 0921 (Given - Provider: Terrie Hunt RN) Metoprolol (LOPRESSOR) tablet 50 mg 50 mg, Oral, 2 TIMES DAILY, First dose on Mon05/09/25 at 0900, Until Discontinued 1004 (Given - Provider: Tameka Wells RN)1819 (Given - Provider: Tameka Wells RN) 1044 (Given - Provider: Terrie Hunt, VAN)1737 (Given - Provider: Terrie Hunt RN) 0921 (Given - Provider: Terrie Hunt RN) Pantoprazole (PROTONIX) tablet DR 40 mg 40 mg, Oral, DAILY, First dose on Mon05/09/25 at 0900, Until Discontinued, Swallow whole; do not crush or chew., Indications: Continuation of Home Therapy 1003 (Given - Provider: Tameka Wells RN) 1044 (Given - Provider: Terrie Hunt RN) 0921 (Given - Provider: Terrie Hunt, VAN) Polyethylene glycol (MIRALAX) packet 17 g 17 g, Oral, 2 TIMES DAILY, First dose on 05/11/25 at 0930, Until Discontinued 1002 (Given - Provider: Tameka Wells RN)1819 (Not Given - Provider: Tameka Wells RN - Reason: Patient/family refused) 1043 (Given - Provider: Terrie Hunt RN)1737 (Given - Provider: Terrie Hunt RN) 0920 (Given - Provider: Terrie Hunt, VAN) predniSONE (DELTASONE) tablet 10 mg(Linked Group 1) 10 mg, Oral, DAILY, 4 doses, First dose on Prerna 05/22/25 at 0900, Last dose on 05/25/25 at 0900 predniSONE (DELTASONE) tablet 20 mg(Linked Group 1) 20 mg, Oral, DAILY, 4 doses, First dose on 05/18/25 at 0900, Last dose on Mon05/21/25 at 0900 predniSONE (DELTASONE) tablet 30 mg(Linked Group 1) 30 mg, Oral, DAILY, 4 doses, First dose on Mon05/14/25 at 0900, Last dose on 05/17/25 at 0900 predniSONE (DELTASONE) tablet 40 mg (COMPLETED)(Linked Group 1) 40 mg, Oral, DAILY, 4 doses, First dose on 05/10/25 at 0900, Last dose on Mon05/13/25 at 0900 1003 (Given - Provider: Tameka Wells RN) 1045 (Given - Provider: Terrie Hunt RN) 1120 (Given - Provider: Terrie Hunt RN) predniSONE (DELTASONE) tablet 40 mg 40 mg, Oral, ONCE, 1 dose, On Mon05/13/25 at 1115 1115 (Canceled Entry - Provider: System Discharge - Comment: Automatically canceled at discontinue of medication order) rivaroxaban (XARELTO) tablet 2.5 mg 2.5 mg, Oral, 2 TIMES DAILY, First dose on Mon05/09/25 at 0900, Until Discontinued, Due to the rapid onset of action of rivaroxaban, no overlap is needed with other anticoagulants (e.g. enoxaparin, heparin). Administer doses of 15mg or greater with food. For patients who cannot swallow whole tablets, the tablets may be crushed and mixed with applesauce immediately prior to use. If administered via feeding tube, crush tablets and mix with 50 mL water. Tube must empty into the stomach for this route., Indications: Peripheral Arterial Disease 0900 (Automatically Held)1700 (Automatically Held) 0808 (Unheld by provider - Provider: Rafaela Garcia MD)1044 (Given - Provider: Terrie Hunt RN)1737 (Given - Provider: Terrie Hunt RN) 0921 (Given - Provider: Terrie Hunt RN) Senna (SENOKOT) tablet 8.6 mg 8.6 mg, Oral, 2 TIMES DAILY, First dose (after last modification) on Mon05/11/25 at 0930, Until Discontinued 1003 (Given - Provider: Tameka Wells RN)1819 (Not Given - Provider: Tameka Wells RN - Reason: Patient/family refused) 1052 (Not Given - Provider: Terrie Hunt RN - Reason: Patient/family refused)1759 (Not Given - Provider: Terrie Hunt RN - Reason: Patient/family refused) 0926 (Not Given - Provider: Terrie Hunt RN - Reason: Patient/family refused) Tamsulosin HCl (FLOMAX) capsule 0.4 mg 0.4 mg, Oral, DAILY, First dose on Mon05/09/25 at 0900, Until Discontinued, If giving via enteral tube: May add capsule contents to apple juice or applesauce. Do not crush or chew the pellets and coating. 1003 (Given - Provider: Tameka Wells RN) 1044 (Given - Provider: Terrie Hunt RN) 0921 (Given - Provider: Terrie Hunt RN) tranexamic acid solution for nebulization 500 mg (CANCELED) 500 mg, Nebulization, 2 TIMES DAILY, First dose on Mon05/10/25 at 0900, Until Discontinued, For nebulization only. 0823 (Given - Provider: Samuel Kenyon, [employer] Permit [employer]) Vancomycin HCl in NaCl (Vancocin) 1,500 mg 290 ml premade IVPB (CANCELED) 1,500 mg, Intravenous, Administer over 2 Hours, EVERY 12 HOURS NON-STANDARD, First dose (after last modification) on Mon05/10/25 at 1915, Until Discontinued, Indication for treatment with Vancomycin - Culture/Source: infected bullae vs lung abscess 1149 ($$New Bag$$ - Provider: Tameka Wells RN - Comment: no iv site)1825 (Stopped - Provider: Tameka Wells RN)2023 ($$New Bag$$ - Provider: Solitario Gonzalez RN) 0900 (Canceled Entry - Provider: Rafaela Garcia MD - Comment: Automatically canceled at discontinue of medication order) PRN Medication Order 05/11/2025 05/12/2025 05/13/2025 Acetaminophen (TYLENOL) tablet 650 mg 650 mg, Oral, EVERY 6 HOURS NEEDED, Starting on Mon05/09/25 at 0221, Until Mon05/13/25 at 1552, Mild Pain, Oral temp > 100.4 F, Headaches, Alternate with ibuprofen if ordered, Maximum dose of acetaminophen is 4000 mg from all sources in 24 hours or 2000 mg from all sources in patients with cirrhosis in 24 hours. fluticasone (FLONASE) 50 MCG/ACT nasal spray 1 spray 1 spray, Nasal, DAILY NEEDED, Starting on Mon05/09/25 at 2303, Until Mon05/13/25 at 1552, Allergies, Rhinitis, Dose is for each nostril. 1004 (Given - Provider: Tameka Wells RN) guaiFENesin-codeine 100-10 MG/5ML oral solution SOLN 10 mL 10 mL, Oral, EVERY 4 HOURS NEEDED, Starting on Mon05/09/25 at 1141, Until Mon05/13/25 at 1552, Congestion, Cough 2033 (Given - Provider: Tabby Thibodeaux, VAN) hydrOXYzine HCl (ATARAX) tablet 25 mg 25 mg, Oral, EVERY 6 HOURS NEEDED, Starting on 05/10/25 at 1005, Until Mon05/13/25 at 1552, Anxiety 2116 (Given - Provider: Tabby Thibodeaux, VAN) Lactulose (CHRONULAC) oral solution 20 g 20 g, Oral, 2 TIMES DAILY NEEDED, Starting on Mon05/11/25 at 0916, Until Mon05/13/25 at 1552, Constipation 1st Line Melatonin tablet 6 mg 6 mg, Oral, DAILY AT BEDTIME NEEDED, Starting on Mon05/09/25 at 0220, Until Mon05/13/25 at 1552, Insomnia 2154 (Given - Provider: Brenna Swain RN) 2116 (Given - Provider: Tabby Thibodeaux, VAN) Ondansetron (ZOFRAN-ODT) disintegrating tablet 4 mg(Linked Group 2) 4 mg, Oral, EVERY 6 HOURS NEEDED, Starting on Mon05/09/25 at 0221, Until Mon05/13/25 at 1552, Nausea / Vomiting Ondansetron 4mg/2ml (ZOFRAN) injection 4 mg(Linked Group 2) 4 mg, Intravenous, EVERY 6 HOURS NEEDED, Starting on Mon05/09/25 at 0221, Until Mon05/13/25 at 1552, Nausea / Vomiting oxyCODONE-acetaminophen (PERCOCET) 5-325 MG per tablet 1 tablet 1 tablet, Oral, EVERY 8 HOURS NEEDED, Starting on Mon05/09/25 at 0434, Until Mon05/13/25 at 1552, Severe Pain, Maximum dose of acetaminophen is 4000 mg from all sources in 24 hours. 0120 (Given - Provider: Solitario Gonzalez RN)2115 (Given - Provider: Tabby Thibodeaux, VAN) Sodium chloride 0.9% IV solution 250 mL Intravenous, at 20 mL/hr, NEEDED, Starting on Mon05/09/25 at 0220, Until Mon05/13/25 at 1552, Carrier Fluid - See Admin. Inst, 250mL 0.9NS to be used as carrier fluid for intermittent small volume or piggyback medication administration as needed. Infusion rate of the carrier fluid should be set at 20 mL/hr unless the rate as the intermittent medication is less than 20 mL/hr. For intermittent medications with a rate less than 20 mL/hr set the carrier fluid at that rate of the intermittent or piggy back medication. 1147 (Restarted - Provider: Tameka Wells, VAN)1430 (Stopped - Provider: Tameka Wells RN) Linked Groups Order Group 1: predniSONE (DELTASONE) tablet 40 mg (COMPLETED)Jump to med 40 mg, Oral, DAILY, 4 doses, First dose on Mon05/10/25 at 0900, Last dose on Mon05/13/25 at 0900 Followed by predniSONE (DELTASONE) tablet 30 mgJump to med 30 mg, Oral, DAILY, 4 doses, First dose on Mon05/14/25 at 0900, Last dose on Mon05/17/25 at 0900 Followed by predniSONE (DELTASONE) tablet 20 mgJump to med 20 mg, Oral, DAILY, 4 doses, First dose on Mon05/18/25 at 0900, Last dose on Mon05/21/25 at 0900 Followed by predniSONE (DELTASONE) tablet 10 mgJump to med 10 mg, Oral, DAILY, 4 doses, First dose on Mon05/22/25 at 0900, Last dose on Mon05/25/25 at 0900 Group 2: Ondansetron 4mg/2ml (ZOFRAN) injection 4 mgJump to med 4 mg, Intravenous, EVERY 6 HOURS NEEDED, Starting on Mon05/09/25 at 0221, Until Mon05/13/25 at 1552, Nausea / Vomiting Or Ondansetron (ZOFRAN-ODT) disintegrating tablet 4 mgJump to med 4 mg, Oral, EVERY 6 HOURS NEEDED, Starting on Mon05/09/25 at 0221, Until Mon05/13/25 at 1552, Nausea / Vomiting Scheduled Medication Order 05/11/2025 05/12/2025 05/13/2025 aspirin chewable tablet 81 mg 81 mg, Oral, DAILY, First dose on Mon05/09/25 at 0900, Until Discontinued 0900 (Automatically Held) 0808 (Unheld by provider - Provider: Rafaela Garcia MD)1044 (Given - Provider: Terrie Hunt, RN) 0921 (Given - Provider: Terrie Hunt, RN) Atorvastatin (LIPITOR) tablet 80 mg 80 mg, Oral, DAILY, First dose on Mon05/09/25 at 0900, Until Discontinued 1002 (Given - Provider: Tameka Wells RN) 1051 (Given - Provider: Terrie Hunt, VAN) 1119 (Given - Provider: Terrie Hunt, RN) ceFEPIme (MAXIPIME) 2 g in dextrose 100 ml premix IVPB (CANCELED) 2 g, Intravenous, Administer over 4 Hours, EVERY 8 HOURS NON-STANDARD, First dose on Mon05/09/25 at 0600, Until Discontinued, Infuse STAT doses over 30 minutes. Infuse other doses over 4 hours., On hold since Mon05/12/2025 at 0808 until manually unheld 0055 ($$New Bag$$ - Provider: Heladio Sandra RN)0600 (Stopped - Provider: Heladio Sandra RN)1155 ($$New Bag$$ - Provider: Tameka Wells RN - Comment: no iv site)1807 ($$New Bag$$ - Provider: Tiana Storm RN - Comment: late on previous dose)1836 (Paused - Provider: Terrie Hunt RN)183 (Restarted - Provider: Terrie Hunt RN)2018 (Paused - Provider: Terrie Hunt RN)202 (Restarted - Provider: Terrie Hunt RN)2027 (Stopped - Provider: Terrie Hunt, VAN)2303 (Not Given - Provider: Solitario Gonzalez RN - Reason: Patient/family refused) 0803 (Not Given - Provider: Terrie Hunt RN - Reason: Patient/family refused)0808 (Held by provider - Provider: Rafaela Garcia MD - Reason: Other)1010 (Unheld by provider - Provider: Rafaela Garcia MD) collagenase (SANTYL) ointment 1 Application 1 Application, Topical, DAILY, First dose on Mon05/09/25 at 0900, Until Discontinued, Patient may self-administer. Apply to foot wound 1156 (Given - Provider: Tameka Wells RN) 1052 (Given - Provider: Terrie Hunt RN) 0900 (Canceled Entry - Provider: System Discharge - Comment: Automatically canceled at discontinue of medication order) Ipratropium-albuterol (DUONEB) 0.5-2.5 (3) MG/3ML nebulizer solution 3 mL 3 mL, Nebulization, EVERY 6 HOURS, First dose on Mon05/09/25 at 0800, Until Discontinued 0233 (Given - Provider: Ben Stewart RCP)0823 (Given - Provider: Samuel Kenyon, Limited Permit [place])1434 (Given - Provider: Samuel Kenyon, Limited Permit [place])2139 (Given - Provider: Sindy Swann RCP) 0245 (Not Given - Provider: Ben Stewart RCP - Reason: Patient/family refused)0759 (Given - Provider: Radha Bucio RCP)1220 (Given - Provider: Radha Bucio RCP)2007 (Given - Provider: Ben Stewart RCP) 0140 (Given - Provider: Ben Stewart RCP)0821 (Given - Provider: Jessie Walton RCP)1319 (Not Given - Provider: Jessie Walton RCP - Reason: Patient not available - Comment: not it room) Losartan (COZAAR) tablet 25 mg 25 mg, Oral, DAILY, First dose on Mon05/09/25 at 0900, Until Discontinued 1002 (Given - Provider: Tameka Wells RN) 1044 (Given - Provider: Terrie Hunt RN) 0921 (Given - Provider: Terrie Hunt, VAN) Metoprolol (LOPRESSOR) tablet 50 mg 50 mg, Oral, 2 TIMES DAILY, First dose on Mon05/09/25 at 0900, Until Discontinued 1004 (Given - Provider: Tameka Wells RN)1819 (Given - Provider: Tameka Wells RN) 1044 (Given - Provider: Terrie Hunt RN)1737 (Given - Provider: Terrie Hunt RN) 0921 (Given - Provider: Terrie Hunt, VAN) Pantoprazole (PROTONIX) tablet DR 40 mg 40 mg, Oral, DAILY, First dose on Mon05/09/25 at 0900, Until Discontinued, Swallow whole; do not crush or chew., Indications: Continuation of Home Therapy 1003 (Given - Provider: Tameka Wells RN) 1044 (Given - Provider: Terrie Hunt, RN) 0921 (Given - Provider: Terrie Hunt, RN) Polyethylene glycol (MIRALAX) packet 17 g 17 g, Oral, 2 TIMES DAILY, First dose on 05/11/25 at 0930, Until Discontinued 1002 (Given - Provider: Tameka Wells, VAN)1819 (Not Given - Provider: Tameka Wells RN - Reason: Patient/family refused) 1043 (Given - Provider: Terrie Hunt, VAN)1737 (Given - Provider: Terrie Hunt, VAN) 0920 (Given - Provider: Terrie Hunt, VAN) predniSONE (DELTASONE) tablet 10 mg(Linked Group 1) 10 mg, Oral, DAILY, 4 doses, First dose on Mon05/22/25 at 0900, Last dose on Mon05/25/25 at 0900 predniSONE (DELTASONE) tablet 20 mg(Linked Group 1) 20 mg, Oral, DAILY, 4 doses, First dose on Mon05/18/25 at 0900, Last dose on Mon05/21/25 at 0900 predniSONE (DELTASONE) tablet 30 mg(Linked Group 1) 30 mg, Oral, DAILY, 4 doses, First dose on Mon05/14/25 at 0900, Last dose on Mon05/17/25 at 0900 predniSONE (DELTASONE) tablet 40 mg (COMPLETED)(Linked Group 1) 40 mg, Oral, DAILY, 4 doses, First dose on Mon05/10/25 at 0900, Last dose on Mon05/13/25 at 0900 1003 (Given - Provider: Tameka Wells RN) 1045 (Given - Provider: Terrie Hunt, VAN) 1120 (Given - Provider: Terrie Hunt, VAN) predniSONE (DELTASONE) tablet 40 mg 40 mg, Oral, ONCE, 1 dose, On Mon05/13/25 at 1115 1115 (Canceled Entry - Provider: System Discharge - Comment: Automatically canceled at discontinue of medication order) rivaroxaban (XARELTO) tablet 2.5 mg 2.5 mg, Oral, 2 TIMES DAILY, First dose on Mon05/09/25 at 0900, Until Discontinued, Due to the rapid onset of action of rivaroxaban, no overlap is needed with other anticoagulants (e.g. enoxaparin, heparin). Administer doses of 15mg or greater with food. For patients who cannot swallow whole tablets, the tablets may be crushed and mixed with applesauce immediately prior to use. If administered via feeding tube, crush tablets and mix with 50 mL water. Tube must empty into the stomach for this route., Indications: Peripheral Arterial Disease 0900 (Automatically Held)1700 (Automatically Held) 0808 (Unheld by provider - Provider: Rafaela Garcia MD)1044 (Given - Provider: Terrie Hunt RN)1737 (Given - Provider: Terrie Hunt RN) 0921 (Given - Provider: Terrie Hunt RN) Senna (SENOKOT) tablet 8.6 mg 8.6 mg, Oral, 2 TIMES DAILY, First dose (after last modification) on Mon05/11/25 at 0930, Until Discontinued 1003 (Given - Provider: Tameka Wells RN)1819 (Not Given - Provider: Tameka Wells RN - Reason: Patient/family refused) 1052 (Not Given - Provider: Terrie Hunt RN - Reason: Patient/family refused)1759 (Not Given - Provider: Terrie Hunt RN - Reason: Patient/family refused) 0926 (Not Given - Provider: Terrie Hunt RN - Reason: Patient/family refused) Tamsulosin HCl (FLOMAX) capsule 0.4 mg 0.4 mg, Oral, DAILY, First dose on Mon05/09/25 at 0900, Until Discontinued, If giving via enteral tube: May add capsule contents to apple juice or applesauce. Do not crush or chew the pellets and coating. 1003 (Given - Provider: Tameka Wells RN) 1044 (Given - Provider: Terrie Hunt RN) 0921 (Given - Provider: Terrie Hunt RN) tranexamic acid solution for nebulization 500 mg (CANCELED) 500 mg, Nebulization, 2 TIMES DAILY, First dose on 05/10/25 at 0900, Until Discontinued, For nebulization only. 0823 (Given - Provider: Samuel Kenyon, Limited Permit [place]) Vancomycin HCl in NaCl (Vancocin) 1,500 mg 290 ml premade IVPB (CANCELED) 1,500 mg, Intravenous, Administer over 2 Hours, EVERY 12 HOURS NON-STANDARD, First dose (after last modification) on 05/10/25 at 1915, Until Discontinued, Indication for treatment with Vancomycin - Culture/Source: infected bullae vs lung abscess 1149 ($$New Bag$$ - Provider: Tameka Wells RN - Comment: no iv site)182 (Stopped - Provider: Tameka Wells RN)2023 ($$New Bag$$ - Provider: Solitario Gonzalez RN) 0900 (Canceled Entry - Provider: Rafaela Garcia MD - Comment: Automatically canceled at discontinue of medication order) PRN Medication Order 05/11/2025 05/12/2025 05/13/2025 Acetaminophen (TYLENOL) tablet 650 mg 650 mg, Oral, EVERY 6 HOURS NEEDED, Starting on Mon05/09/25 at 0221, Until Mon05/13/25 at 1552, Mild Pain, Oral temp > 100.4 F, Headaches, Alternate with ibuprofen if ordered, Maximum dose of acetaminophen is 4000 mg from all sources in 24 hours or 2000 mg from all sources in patients with cirrhosis in 24 hours. fluticasone (FLONASE) 50 MCG/ACT nasal spray 1 spray 1 spray, Nasal, DAILY NEEDED, Starting on Mon05/09/25 at 2303, Until Mon05/13/25 at 1552, Allergies, Rhinitis, Dose is for each nostril. 1004 (Given - Provider: Tameka Wells RN) guaiFENesin-codeine 100-10 MG/5ML oral solution SOLN 10 mL 10 mL, Oral, EVERY 4 HOURS NEEDED, Starting on Mon05/09/25 at 1141, Until Mon05/13/25 at 1552, Congestion, Cough 2033 (Given - Provider: Tabby Thibodeaux, VAN) hydrOXYzine HCl (ATARAX) tablet 25 mg 25 mg, Oral, EVERY 6 HOURS NEEDED, Starting on 05/10/25 at 1005, Until Mon05/13/25 at 1552, Anxiety 2116 (Given - Provider: Tabby Thibodeaux, VAN) Lactulose (CHRONULAC) oral solution 20 g 20 g, Oral, 2 TIMES DAILY NEEDED, Starting on Mon05/11/25 at 0916, Until Mon05/13/25 at 1552, Constipation 1st Line Melatonin tablet 6 mg 6 mg, Oral, DAILY AT BEDTIME NEEDED, Starting on Mon05/09/25 at 0220, Until Mon05/13/25 at 1552, Insomnia 2154 (Given - Provider: Brenna Swain RN) 2116 (Given - Provider: Tabby Thibodeaux, VAN) Ondansetron (ZOFRAN-ODT) disintegrating tablet 4 mg(Linked Group 2) 4 mg, Oral, EVERY 6 HOURS NEEDED, Starting on Mon05/09/25 at 0221, Until Mon05/13/25 at 1552, Nausea / Vomiting Ondansetron 4mg/2ml (ZOFRAN) injection 4 mg(Linked Group 2) 4 mg, Intravenous, EVERY 6 HOURS NEEDED, Starting on Mon05/09/25 at 0221, Until Mon05/13/25 at 1552, Nausea / Vomiting oxyCODONE-acetaminophen (PERCOCET) 5-325 MG per tablet 1 tablet 1 tablet, Oral, EVERY 8 HOURS NEEDED, Starting on Mon05/09/25 at 0434, Until Mon05/13/25 at 1552, Severe Pain, Maximum dose of acetaminophen is 4000 mg from all sources in 24 hours. 0120 (Given - Provider: Solitario Gonzalez RN)2115 (Given - Provider: Tabby Thibodeaux, VAN) Sodium chloride 0.9% IV solution 250 mL Intravenous, at 20 mL/hr, NEEDED, Starting on Mon05/09/25 at 0220, Until Mon05/13/25 at 1552, Carrier Fluid - See Admin. Inst, 250mL 0.9NS to be used as carrier fluid for intermittent small volume or piggyback medication administration as needed. Infusion rate of the carrier fluid should be set at 20 mL/hr unless the rate as the intermittent medication is less than 20 mL/hr. For intermittent medications with a rate less than 20 mL/hr set the carrier fluid at that rate of the intermittent or piggy back medication. 1147 (Restarted - Provider: Tameka Wells RN)1430 (Stopped - Provider: Tameka Wells RN) Linked Groups Order Group 1: predniSONE (DELTASONE) tablet 40 mg (COMPLETED)Jump to med 40 mg, Oral, DAILY, 4 doses, First dose on Mon05/10/25 at 0900, Last dose on Mon05/13/25 at 0900 Followed by predniSONE (DELTASONE) tablet 30 mgJump to med 30 mg, Oral, DAILY, 4 doses, First dose on Mon05/14/25 at 0900, Last dose on Mon05/17/25 at 0900 Followed by predniSONE (DELTASONE) tablet 20 mgJump to med 20 mg, Oral, DAILY, 4 doses, First dose on Mon05/18/25 at 0900, Last dose on Mon05/21/25 at 0900 Followed by predniSONE (DELTASONE) tablet 10 mgJump to med 10 mg, Oral, DAILY, 4 doses, First dose on Mon05/22/25 at 0900, Last dose on Mon05/25/25 at 0900 Group 2: Ondansetron 4mg/2ml (ZOFRAN) injection 4 mgJump to med 4 mg, Intravenous, EVERY 6 HOURS NEEDED, Starting on Mon05/09/25 at 0221, Until Mon05/13/25 at 1552, Nausea / Vomiting Or Ondansetron (ZOFRAN-ODT) disintegrating tablet 4 mgJump to med 4 mg, Oral, EVERY 6 HOURS NEEDED, Starting on Mon05/09/25 at 0221, Until Mon05/13/25 at 1552, Nausea / Vomiting Goals (unrecognized section and content) Goals may [...] 5 days 5 tablet 0 10/30/2022 11/04/2022 Dialysis Access Sites (unrec ognized section and content) Type Status Location Placement Date Removal [facility] (CV Access Device) 1506 Arterial 6 Fr 11 cm Right femoral Label 1 Inactive 08/09/2018 08/09/2018 FOR RECORDS PERTAINING TO PATIENTS WHO ARE [...] BE BASED ON THE PRIMARY CLINICAL RECORDS. [employer] provides no warranty or guarantee of the accuracy or completeness of information in this document.
== END 2025-05-14 10:11 | disposition home or self-care (01) ==
LOC: WC 10:10
PROVIDERS: PCP Family Medicine; Visit Provider Podiatrist Foot & Ankle Surgery
DX: I70.261 Atherosclerosis of native arteries of extremities with gangrene, right leg (principal); L97.516 Non-pressure chronic ulcer of other part of right foot with bone involvement without evidence of necrosis
CPT/HCPCS: G0463

== ENCOUNTER 2025-05-28 10:22 | Outpatient (OUT) | payer MEDICARE, SELFPAY | END 2025-05-28 10:23 | disposition home or self-care (01) | LOC: WC 10:26 | PROVIDERS: PCP Family Medicine; Visit Provider Podiatrist Foot & Ankle Surgery | DX: I70.261 Atherosclerosis of native arteries of extremities with gangrene, right leg (principal); L97.516 Non-pressure chronic ulcer of other part of right foot with bone involvement without evidence of necrosis | CPT/HCPCS: G0463 ==

== ENCOUNTER 2025-06-18 10:32 | Outpatient (OUT) | payer MEDICARE, SELFPAY ==
--- OUTSIDE RECORDS SUMMARY | 2025-06-05 12:51 | XMS_ITS | Encounter Summary ---
Author Organization [facility] Address [address] [place] [address] Care Team Providers Care Buff Wheel Fabricator Name Role Phone Nikko Bird MD Primary Care Provider [phone] System, Provider Not In Unavailable Unavaila ble Reason for Referral * Cardio (Routine) - ClosedSpecialtyDiagnoses / ProceduresReferred By Contact Referred To ContactCardiology Diagnoses PVD (peripheral vascular disease) Procedures Ultrasound ankle / brachial indices extremity complete Gracy Millan MD [address] [place] [address] Phone: tel: fax: Referral IDStatusReasonStart DateExpiration DateVisits RequestedVisits [id number] Reason for Visit * Cardio (Routine) - ClosedSpecialtyDiagnoses / ProceduresReferred By Contact Referred To ContactCardiology Diagnoses PVD (peripheral vascular disease) Procedures Ultrasound ankle / brachial indices extremity complete Gracy Millan MD [address] [place], [place] [id number] Phone: tel: fax: Referral IDStatusReasonStart DateExpiration DateVisits RequestedVisits [id number] Encounter Details DateTypeDepartmentCare Team (Latest Contact Info)Aqbwfljbmef32/09/2025 12:51 PM EDT - 06/05/2025 11:59 PM EDTHospital Encounter [facility] [address], 3rd [place] [address] Gracy Millan MD [address] [facility] [address] [phone] Discharge Disposition: Home Social History Tobacco UseTypesPacks/DayYears UsedDateSmoking Tobacco: NeverSmokeless Tobacco: NeverAlcohol UseStandard Drinks/WeekCommentsNot Currently0 (1 standard drink = 0.6 oz pure alcohol)[facility] UtilitiesAnswerDate RecordedIn the past 12 months has the [employer], gas, oil, or water [email or web address] threatened to shut off services in your home?No03/14/2025Humiliation, Afraid, Rape, and Kick questionnaireAnswerDate RecordedWithin the last year, have you been afraid of your partner or ex-partner?No03/14/2025Within the last year, have you been humiliated or emotionally abused in other ways by your partner or ex-partner?No03/14/2025 Within the last year, have you been kicked, hit, slapped, or otherwise physically hurt by your partner or ex-partner?No03/14/2025Within the last year, have you been raped or forced to have any kind of sexual activity by your part ner or ex-partner?No03/14/2025PHQ-2AnswerDate RecordedPHQ-2 Total Score0 03/15/2025Hunger Vital SignAnswerDate RecordedWithin the past 12 months, you worried that your food would run out before you got the money to buymore.Never true03/14/2025Within the past 12 months, the food you bought just didn't last and you didn't have money to get more.Never true03/14/2025PRAPARE - TransportationAnswerDate RecordedIn the past 12 months, has lack of transportation kept you from medical appointments or from getting medications?No 03/14/2025In the past 12 months, has lack of transportation kept you from meetings, work, or from getting things needed for daily living?No03/14/2025 Housing Stability Vital SignAnswerDate RecordedIn the last 12 months, was there a time when you were not able to pay the mortgage or rent on time?No03/14/2025In the past 12 months, how many times have you moved where you were living?1 03/14/2025t any time in the past 12 months, were you homeless or living in a long term (including now)?No03/14/2025Sex and Gender InformationValueDate Recorded Sex Assigned at BirthNot on fileLegal JieOrwd8412/21/2013 2:37 PM EDTGender LtiixevcJhjl73/08/2019 8:23 PM ESTSexual BcpesgohdrwBlqjnpkx29/08/2019 8:23 PM ESTdocumented as of this encounter Medications at Time of Discharge MedicationSigDispense QuantityRefillsLast FilledStart DateEnd Date amoxicillin-clavulanate (AUGMENTIN) 500-125 mg per tablet 04/16/2025 aspirin 81 mg cap Take 1 (one) capsule (81 mg total) by mouth daily .11/27/2019 azelastine (ASTELIN) 137 mcg (0.1 %) nasal spray 1 (one) spray by Each Nare route daily . Calmoseptine 0.44-20.6 % Oint Apply 1 Application topically daily as needed .06/27/2023 furosemide (LASIX) 20 MG tablet Indications:edemaTake 1 (one) tablet (20 mg total) by mouth daily as needed Reasons: visible water retention. losartan (COZAAR) 50 MG tablet Take 1 (one) tablet (50 mg total) by mouth daily . metoprolol tartrate (LOPRESSOR) 50 MG tablet Take 1 (one) tablet (50 mg total) by mouth 2 (two) times a day . naloxone (NARCAN) 4 mg/actuation [place] Administer 1 spray into one nostril for known or suspected opioid overdose. If patient worsens or does not respond, may repeat in 2-3 minutes. . 2 each 03/21/2025 nitroGLYCERIN (NITROSTAT) 0.[address] 1 tablet as needed by sublingual route.12/07/2022 omeprazole (PRILOSEC) 20 MG capsule Take 1 (one) capsule (20 mg total) by mouth daily .11/27/2019 ondansetron (ZOFRAN) 4 MG tablet 04/21/2025 oxyCODONE-acetaminophen (PERCOCET) 5-325 mg per tablet Take 1 (one) tablet by mouth every 6 (six) hours as needed for pain .04/03/2025 polyethylene glycol (MIRALAX) 17 gram powder Take 17 (seventeen) g by mouth daily .09/04/2011 rivaroxaban (XARELTO) 2.5 mg tablet Take 1 (one) tablet (2.5 mg total) by mouth 2 (two) times a day .11/27/2019 SantyL ointment 04/21/2025 sulfamethoxazole-trimethoprim (BACTRIM,SEPTRA) 400-80 mg per tablet 04/16/2025 tamsulosin (FLOMAX) 0.4 mg capsule Take 1 (one) capsule (0.4 mg total) by mouth daily . zolpidem (AMBIEN) 10 mg tablet Take 1 (one) tablet (10 mg total) by mouth nightly as needed .09/30/2019 documented as of this encounter Plan of Treatment Not on file documented as of this encounter Procedures Procedure NamePriorityDate/TimeAssociated DiagnosisCommentsUS ANKLE/BRACHIAL INDICES EXTREMITY TCQOCBKZhzmktc69/09/2025 1:29 PM EDT PVD (peripheral vascular disease) documented in this encounter Results * Ultrasound ankle / brachial indices extremity complete (06/05/2025 1:29 PM EDT)Specimen (Source)Anatomical Location / LateralityCollection Method / VolumeCollection TimeReceived Time06/05/2025 1:16 PM EDT Narrative FUJI SYNAPSE CV - 06/05/2025 2:48 PM EDT Patient Info Name: ? Tristin Gray Age: ? 85 years : ? 1940 Gender: ? Male Accession #: ? [id number] Exam Date: ? 06/05/2025 1:16 PM Patient Status: ? OUTPATIENT Site Location: ? Indications ?I73.9 - PVD (peripheral vascular disease) Procedure Description ??00999 Limited bilateral noninvasive physiologic studies of upper or lower extremity arteries with bidirectional Doppler/PVR waveform analysis at 1-2 levels. Marble Polisher Hand: ? Ginette Gonzalez RDMS, RVS Staff Ordering Provider: ? Gracy Millan MD, RPVI Conclusions ??* Right. ??* Right ankle brachial index is normal. YAMILE is 0.90. ??* Mild small vessel disease at the transmetatarsal level in the right foot. ??* Right 2nd digit PPG is performed due to wound on 1st digit, abnormal PPG waveform is noted. ??* Left. ??* Left ankle brachial index indicates mild peripheral artery disease. ??YAMILE is 0.80. Based on PVR, doppler waveforms, and pressures mild to moderate peripheral artery disease is suggested. ??* Left transmetatarsal level not obtained due to amputation. ??* Left toe brachial index is not obtained due to amputation. ??* Previous YAMILE done at [place]- Right: 0.96 Left: 0.57. Recommendations ??* This study demonstrates normal resting arterial perfusion on the right and mild-moderate peripheral artery disease on the left. Right YAMILE is 0.90 with Doppler and PVR waveforms that are multiphasic and of satisfactory amplitude at the ankle. Left YAMILE is 0.80 with waveforms that are monophasic and only slightly dampened at the ankle. Left YAMILE shows interval improvement relative to prior study. Clinical correlation is advised. Prior Study Date: ? 04/23/2025 Risk Factors ??Patient with a history of PAD, malignancy, CAD, hypertension, hyperlipidemia and COPD. Right 1st digit wound. Segmental BP RIGHT Brachial A [facility] RIGHT PROFESSOR OF LITERACY mmH RIGHT PROFESSOR OF LITERACY Index: 0.90 RIGHT DPA mm[facility] RIGHT DPA Index: 0.80 RIGHT YAMILE Index: 0.90 LEFT Brachial A [facility] LEFT PROFESSOR OF LITERACY Index: 0.65 LEFT PROFESSOR OF LITERACY mm[facility] LEFT DPA Index: 0.80 LEFT DPA mm[facility] LEFT YAMILE Index: 0.80 Doppler RIGHT PROFESSOR OF LITERACY Waveform: Multiphasic RIGHT DPA Waveform: Multiphasic LEFT PROFESSOR OF LITERACY Waveform: Multiphasic LEFT DPA Waveform: Multiphasic , PVR RIGHT Ankle Grade: Abnormal RIGHT Transmetarsal Grade: Abnormal RIGHT Digit (PPG) Grade: Abnormal LEFT Ankle Grade: Abnormal Prior Interventions ??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 Report Signatures Finalized by Neetu De La Rosa ?? on 06/05/2025 02:48 PM Procedure Note Neetu De La Rosa MD - 06/05/2025 Patient Info Name: Tristin Gray Age: 85 years : 1940 Gender: Male Exam Date: 06/05/2025 1:16 PM Patient Status: OUTPATIENT Site Location: Indications I73.9 - PVD (peripheral vascular disease) Procedure Description 74723 Limited bilateral noninvasive physiologic studies of upper orlower extremity arteries with bidirectional Doppler/PVR waveform analysis at1-2 levels. Marble Polisher Hand: Ginette Gonzalez RDMS, RVS Staff Ordering Provider: Gracy Millan MD, RPVI Conclusions * Right. * Right ankle brachial index is normal. YAMILE is 0.90. * Mild small vessel disease at the transmetatarsal level in the rightfoot. * Right 2nd digit PPG is performed due to wound on 1st digit, abnormalPPG waveform is noted. * Left. * Left ankle brachial index indicates mild peripheral artery disease.YAMILE is 0.80. Based on PVR, doppler waveforms, and pressures mild to moderate peripheral artery disease is suggested. 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 * Left toe brachial index is not obtained due to amputation. * Previous YAMILE done at [place]- Right: 0.96 Left: 0.57. Recommendations * This study demonstrates normal resting arterial perfusion on the rightand mild-moderate peripheral artery disease on the left. Right YAMILE is 0.90with Doppler and PVR waveforms that are multiphasic and of satisfactoryamplitude at the ankle. Left YAMILE is 0.80 with waveforms that are monophasic andonly slightly dampened at the ankle. Left YAMILE shows interval improvementrelative to prior study. Clinical correlation is advised. Prior Study Date: 04/23/2025 Risk Factors Patient with a history of PAD, malignancy, CAD, hypertension,hyperlipidemia and COPD. Right 1st digit wound. Segmental BP RIGHT Brachial A [facility] RIGHT PROFESSOR OF LITERACY mm[facility] RIGHT PROFESSOR OF LITERACY Index: 0.90 RIGHT DPA mm[facility] RIGHT DPA Index: 0.80 RIGHT YAMILE Index: 0.90 LEFT Brachial A [facility] LEFT PROFESSOR OF LITERACY Index: 0.65 LEFT PROFESSOR OF LITERACY mm[facility] LEFT DPA Index: 0.80 LEFT DPA mm[facility] LEFT YAMILE Index: 0.80 Doppler RIGHT PROFESSOR OF LITERACY Waveform: Multiphasic RIGHT DPA Waveform: Multiphasic LEFT PROFESSOR OF LITERACY Waveform: Multiphasic LEFT DPA Waveform: Multiphasic , PVR RIGHT Ankle Grade: Abnormal RIGHT Transmetarsal Grade: Abnormal RIGHT Digit (PPG) Grade: Abnormal LEFT Ankle Grade: Abnormal Prior Interventions Left transmetatarsal amputation. Left femoral to peroneal arterybypass. Report Signatures Finalized by Neetu De La Rosa MD on 06/05/2025 02:48 PM Authorizing ProviderResult TypeResult StatusJoy Cornelio Millan MDCMiriam VASCULAR ORDERABLESFinal ResultPerforming OrganizationAddressCity/State/ZIP CodePhone Number FUJI SYNAPSE CV documented in this encounter Visit Diagnoses Diagnosis PVD (peripheral vascular disease) Unspecified peripheral vascular disease documented in this encounter Additional Health Concerns AssessmentNoted TimePHQ-2 Depression Total Score: 8:30 PM EDT documented as of this encounter Care Teams Team MemberRelationshipSpecialtyStart DateEnd Date Nikko Bird MD [address] [place] [phone] PCP - GeneralFamily Medicine09/04/18 System, Provider Not In Cardiologist11/09/22documented as of this encounter
--- OUTSIDE RECORDS SUMMARY | 2025-06-10 10:30 | XMS_ITS | Encounter Summary ---
Author Organization [facility] Address [address] [place] [address] Care Team Providers Care Police Sergeant Precinct Name Role Phone Nikko Bird MD Unavailable Nikko Bird MD Primary Care Provider [phone] Elaine Saab LPN Unavailable Reason for Visit * ReasonCommentsMedicare Annual Wellness Visit Subsequent Encounter Details DateTypeDepartmentCare Team (Latest Contact Info)Szbuknnamfn99/14/2025 10:30 AM EDTOffice Visit [facility] [address] [facility] [address] [place] [address] Nikko Bird MD [address] [facility] [address] [place] [address] Routine general medical examination at health care facility (Primary Dx); Screening for lipid disorders; Medicare annual wellness visit, subsequent; 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HCC); Encounter for immunization; Opioid dependence, uncomplicated (HCC); Acute eczematoid otitis externa of right ear Social History Tobacco UseTypesPacks/DayYears UsedDateSmoking Tobacco: NeverSmokeless Tobacco: NeverAlcohol UseStandard Drinks/WeekCommentsNot Currently0 (1 standard drink = 0.6 oz pure alcohol)Coffee 1-2 cups per [id number] Health LiteracyAnswerDate RecordedHow often do you need to have someone help you when you read instructions, pamphlets, or other written material from your doctor or pharmacy? Txqhji6006/21/2024Humiliation, Afraid, Rape, and Kick questionnaireAnswerDate RecordedWithin the [...] heating?Not hard at all06/21/2024HQ-2AnswerDate RecordedPatient Health Questionnaire-2 Msntc183Fin[facility] [place] of Occupational Health - Occupational Stress QuestionnaireAnswerDate [...] homeless or living in a fci (including now)?No06/21/2024Sex and Gender InformationValueDate RecordedSex Assigned at BirthNot on fileLegal JdcOewi2011/09/2022 7:18 PM EDTGender IdentityNot on fileSexual OrientationNot on filedocumented as of this encounter Last Filed Vital Signs Vital SignReadingTime TakenCommentsBlood Sfmkalkp353/6806/10/2025 10:17 AM EDT Higfa927406/10/2025 10:17 AM EDTTemperature--Respiratory Rate--Oxygen Saturation 94%06/10/2025 10:17 AM EDTInhaled Oxygen Concentration--Htgtix299 kg (243 lb) 06/10/2025 10:17 AM HBSStzdgs533 cm (6' 2 )06/10/2025 10:17 AM EDTBody [...] 10:00 AM Lorraine Marks MAPatient Health Questionnaire-2 Fadbp358 10:00 AM Lorraine Marks MA documented as [...] (Tessalon) 100 MG capsule Three times daily Bydyrmu-Civzqfyjigq-Ahchsuinsf (Breztri Aerosphere) 160-9-4.8 MCG/ACT aerosol Inhale 1 [...] Do you have a medical power of erisa attorney?: Yes Objective : BP 132/68 Pulse [...] Orders Flu vaccine, high dose seasonal, PF (CGO346) (Fluzone High Dose) (Completed) Orders Placed This Encounter Procedures Flu vaccine, high dose seasonal, PF (SPD406) (Fluzone High Dose) Lipid panel Standing Status: [...] Care Teams Team MemberRelationshipSpecialtyStart DateEnd Date Nikko iBrd MD [address] [address] PCP - [place] [address] Nikko Bird MD [address] [place] [address] P[facility] - [facility]Mit[facility] Centerly Medicine03/09/23 Elaine Saab LPN [address] [place] [address] [place] [address] 11/15/24documented as of this encounter
--- OUTSIDE RECORDS SUMMARY | 2025-06-17 13:06 | XMS_ITS | Encounter Summary ---
Author Organization [facility] Address [address] [place] [address] Care Team Providers Care Chair Springer Name Role Phone Nikko Bird MD Primary Care Provider [phone] System, Provider Not In Unavailable Unavaila ble Reason for Referral * Cardio (Routine) - Pending ReviewSpecialtyDiagnoses / ProceduresReferred By ContactReferred To ContactCardiology Diagnoses PVD (peripheral vascular disease) Procedures US Duplex Bypass Graft Right Gracy Kincaid MD [address] [place] [address] Phone: tel: fax: Referral IDStatusReasonStart DateExpiration DateVisits RequestedVisits [id number]/ Reason for Visit * Cardio (Routine) - Pending ReviewSpecialtyDiagnoses / ProceduresReferred By ContactReferred To ContactCardiology Diagnoses PVD (peripheral vascular disease) Procedures US Duplex Bypass Graft Right Gracy Kincaid MD [address] [place] [address] Phone: tel: fax: Referral IDStatusReasonStart DateExpiration DateVisits RequestedVisits [id number]/ Encounter Details DateTypeDepartmentCare Team (Latest Contact Info)Fvnzcekjcnw54/21/2025 1:06 PM EDT - 06/17/2025 11:59 PM EDTHospital Encounter [facility] [address], [address] [place] [address] Gracy Millan MD [address] [facility] [address] [place] [address] Arrived Discharge Disposition: Home Social History Tobacco UseTypesPacks/DayYears UsedDateSmoking Tobacco: NeverSmokeless Tobacco: NeverAlcohol UseStandard Drinks/WeekCommentsNot Currently0 (1 standard drink = 0.6 oz pure alcohol)[facility] UtilitiesAnswerDate RecordedIn the past 12 months has the [employer], gas, oil, or water company threatened to [...] homeless or living in a fpc (including now)?No03/14/2025Sex and Gender InformationValueDate Recorded Sex Assigned at BirthNot on fileLegal QywRknz5412/21/2013 2:37 PM EDTGender KynitkbpUoeq97/08/2019 8:23 PM ESTSexual QrxobwfpzzkMlmjolkc84/08/2019 8:23 PM ESTdocumented as of this encounter [...] a day . naloxone (NARCAN) 4 mg/actuation [place] Administer 1 spray into one nostril for [...] NamePriorityDate/TimeAssociated DiagnosisCommentsUS DUPLEX BYPASS GRAFT LE LIMITED CTAKLBqxetex16/21/2025 2:15 PM EDT PVD (peripheral vascular disease) [...] 1940 Gender: ? Male Accession #: ? [id number] Exam Date: ? 06/17/2025 1:26 PM Patient Status: ? OUTPATIENT Site Location: ? Indications ?I73.9 - Peripheral vascular disease, ??unspecified Procedure Description ??65346 Duplex scan of lower extremity arteries or arterial bypass grafts using B-mode, color and spectral Doppler; unilateral or limited study. Customer Contact Representative: ? Gail SUAREZ, RVS Staff Ordering Provider: [...] - Peripheral vascular disease, unspecified Procedure Description 43370 Duplex scan of lower extremity arteries or arterial bypassgrafts using B-mode, color and spectral Doppler; unilateral or limited study. Customer Contact Representative: Gail SUAREZ, RVS Staff Ordering Provider: Gracy [...] Team MemberRelationshipSpecialtyStart DateEnd Date Nikko Bird MD [address] [place] [phone] PCP - GeneralFamily Medicine09/04/18 System, Provider Not In Cardiologist11/09/22documented as of this encounter
--- OUTSIDE RECORDS SUMMARY | 2025-06-18 10:38 | XMS_ITS | Clinical Summary ---
Author Organization [facility] [email or web address] Address [address] [place] [address] [place] [address] Care Team Providers Care Habilitation Worker Name Role Phone Nikko Bird MD Primary Care Provider [phone] Allergies Active AllergyReactionsCriticalityNoted PhnuFovzuyxeMuqoyvuuns93/12/2025 Medications MedicationSigDispense QuantityRefillsLast FilledStart DateEnd DateStatus rivaroxaban 2.5 MG tablet Take 1 tablet by mouth 2 times daily.Active ASPIRIN 81 PO Take 81 mg by mouth.Active albuterol (2.5 MG/3ML) 0.083% inhalation solution albuterol sulfate 2.5 mg/3 mL (0.083 %) solution for nebulizationActive losartan 50 MG tablet Take 1 tablet by mouth daily.Active zolpidem 10 MG tablet Take 1 tablet by mouth At bedtime as needed for Sleep.Active omeprazole [address] capsule Take 1 capsule by mouth daily. 30 capsule 07/15/2021ctive Additional Information Patient taking differently:20 mg OralDAILY NEEDED, Reported on 05/09/2025 Metoprolol 50 MG tab regular release Take 1 tablet by mouth 2 times daily.Active oxyCODONE-acetaminophen 5-325 MG per tablet Take 1 tablet by mouth every 6 hours as needed for Severe Pain.Active atorvastatin 80 MG tablet Take 1 tablet by mouth daily.Active nitroGLYCERIN 0.[address] 1 tablet under tongue every 5 minutes as needed for Chest pain. max = 3 doses. If CP persistsafter 1st dose, call 911Active collagenase (Santyl) 250 UNIT/GM Ointment Apply 1 Application topically daily. To foot woundActive Albuterol 108 (90 Base) MCG/ACT Aero Soln inhaler Inhale 1 puff every 4 hours as needed for Shortness of Breath.Active Sulfamethoxazole-trimethoprim 400-80 MG per tablet Take 1 tablet by mouth 2 times daily.Active Polyethylene glycol 17 g Pack packet Take 1 packet by mouth daily.Active Tamsulosin HCl 0.4 MG capsule Take 1 capsule by mouth 2 times daily.Active azelastine 0.1 % Solution nasal spray 1 spray by Nasal route daily as needed. Use in each nostril as directed 5Active furOSEmide 20 MG tablet Take 1 tablet by mouth daily as needed.5Active Tamsulosin HCl 0.4 MG capsule Take 1 capsule by mouth daily.5Active fluticasone 50 MCG/ACT Suspension nasal spray 1 spray by Nasal route daily as needed.5Active predniSONE 10 MG tablet Take 3 tablets by mouth daily for 4 days, THEN 2 tablets daily for 4 days, THEN 1 tablet daily for 4 days. 24 tablet 509/Expired Active Problems ProblemNoted DateDiagnosed DateAnemia (Low HGB)05/09/20251989Ihcpjzyihv22/12/2025 Uaerdhqwrf92/12/2025oronary artery disease involving [place] coronary artery of [place] heart without angina tfhdnudb14/18/2021/P transmetatarsal amputation of foot, left07/15/2021Mixed ukbdnojukzstct08/18/2021eripheral arterial disease 07/15/2021/P total hip ummwasjawqxg73/18/2021Obesity: body mass index of 30.0-34.9110/11/2017 Assessment & Plan (08/30/2018 3:40 PM EST): Diet and lifestyle modifications strongly encouraged Follow up after discharged with PCP for further treatment options Claudication of left lower texamuquc96/14/2018 Assessment & Plan (08/10/2018 11:36 AM EST): S/P Left Lower Extremity Angiogram with ballooning and stent 08/09/2018 Post op orders per surgeon DVT/GI prophylaxis Monitor labs, VS and telemetry as ordered Pain management Essential smfvlfyikcme88/14/2018 Assessment & Plan (08/30/2018 3:39 PM EST): Resume home medications as ordered Follow up after discharged with PCP Labetalol PRN for SBP> 160 Monitor VS as ordered Assessment & Plan (08/10/2018 11:36 AM EST): Resume home medications as ordered Follow up after discharged with PCP Labetalol PRN for SBP> 160 Monitor VS as ordered Pure qtnvxuxqhqlunujqfoqn77/14/2018 Assessment & Plan (08/30/2018 3:39 PM EST): Resume home medications Follow up after discharged with PCP Assessment & Plan (08/10/2018 11:37 AM EST): Resume home medications Follow up after discharged with PCP Lipid panel ordered Vascular disease, rfgwlhykjr05/14/2018 Assessment & Plan (08/10/2018 11:37 AM EST): S/P angiogram with Dr. Mayen Follow up after discharged as previously scheduled Jkucitbkekfx52/12/2018 Overview (08/08/2018): Added automatically from request for surgery [id number] Assessment & Plan (08/30/2018 3:38 PM EST): Heparin drip initiated, pharmacy to manage per protocol ASA and Plavix started Cardiovascular surgeon consulted PT/OT evaluation and treatment Monitor labs, VS and telemetry as ordered Pain management Herpes iziwro1709/04/2011Pain of left lower muabojxic37/08/2012vascular necrosis of bone of hip09/04/2011 Overview (09/04/2011): Right hip Prostate fyqenf5509/04/2011 Resolved Problems ProblemNoted DateDiagnosed DateResolved DateHip pain Encounters DateTypeDepartmentCare NbgzYpptdcpfixm63/12/2025 2:31 AM EDT - 05/13/2025 11:45 AM EDTHospital Encounter R8E [address] [place] [address] Vivienne Gerard MD YeDanica MD Hemoptysis Discharge Disposition: [facility] Health Care [facility]05/09/2025Travelfrom Last 3 Months Family History Medical HistoryRelationNameCommentsProstate CancerBrotherNo known problems DaughterMyocardial InfarctionFatherCoronary Artery DiseaseMaternal Grandmother DiabetesMotherMyocardial InfarctionMotherCoronary Artery DiseasePaternal Aunt Coronary Artery DiseasePaternal GrandmotherCoronary Artery DiseasePaternal Uncle No known problemsSisterNo known problemsSonRelationNameStatusCommentsBrother DaughterFatherDeceasedMaternal GrandmotherMotherDeceasedPaternal AuntPaternal GrandmotherPaternal UncleSisterSon Social History Tobacco UseTypesPacks/DayYears UsedDateSmoking Tobacco: NeverSmokeless Tobacco: Never Tobacco Cessation:Counseling Given: Not Answered Alcohol UseStandard Drinks/WeekCommentsNo0 (1 standard drink = 0.6 oz pure alcohol)NCSS - Food InsecurityAnswerDate RecordedWithin the past 12 months, did you worry that your food would run out before you got money to buy more?No 05/09/2025Within the past 12 months, did the food you bought just not last and you didn???t have money to getmore?No05/09/2025NCSS - Housing/UtilitiesAnswer Date RecordedDo you have housing?Yes05/09/2025re you worried about losing your housing?No05/09/2025Within the past 12 months, have you or your family members you live with been unable to get utilities (heat, electricity) when it was really needed?No05/09/2025NCSS - UtilitiesAnswerDate RecordedWithin the past 12 months, have you or your family members you live with been unable to get utilities (heat, electricity) when it was really needed?No05/09/2025NCSS - TransportationAnswerDate RecordedWithin the past 12 months, has lack of transportation kept you from medical appointments, getting your medicines, non- medical meetings or appointments, work, or from getting things that you need?No 05/09/2025Sex and Gender InformationValueDate RecordedSex Assigned at BirthNot on fileLegal VayMpzd5309/30/2012 7:06 PM ESTGender CyycsvkyZjyk09/19/2018 11:34 AM ESTSexual OrientationNot on file Last Filed Vital Signs Vital SignReadingTime TakenCommentsBlood Cgpowtvn362/68005/13/2025 7:29 AM EDT Ufoer1889/16/2025 7:29 AM XUGCkpnodycrda86.4 ??C (97.5 ??F)05/13/2025 7:29 AM EDTRespiratory Iveq271305/13/2025 7:29 AM EDTOxygen Zfnsvcvtsu11%05/13/2025 7:29 AM EDTInhaled Oxygen Concentration--Vgzdrs512.9 kg (240 lb)05/09/2025 2:00 AM HNOClpbyv365 cm (6' 2 )05/09/2025 2:00 AM EDTBody Mass Index30.8105/09/2025 2:00 AM EDT Plan of Treatment Health MaintenanceDue DateLast DoneCommentsCOLORECTAL CANCER SCREENING AEBLCZRPRT44/09/1984ZOSTER (SHINGLES) VACCINE (1 of 2)1989RSV VACCINE (1 - 1-dose 75+ series)2014COVID-19 VACCINE (2024- season)2025 09/09/2021, 10/28/2020, 09/30/2020INFLUENZA VACCINE (#1)512/, 06/06/2023, 05/31/2022, Additional history oraezqUUQDBNQTD90/14//, 05/09/2025, 06/17/2021, Additional history uptdsdGSRNGTP40/03//10/2019TDAP (ADULT)Heienadbg96/03/2020PNEUMOCOCCAL VACCINE IBOICEGomgrpqeo62/11/2021, 05/28/2020, 05/18/2015HEP B VACCINEAged OutNo longer eligible based on patient's age to complete this topic Medical Devices ImplantedTypeAreaManufacturerDevice IdentifierShelf Expiration DateModel / Serial / LotPinnacle Altrx Polyethylene Acetabular Liner Neutral 36mm Id 62mm Od Implanted:Qty: 1 on 07/15/2021 by Dashawn Silvestre MD at [facility] JointRight: Hip07/27/2025/ 1221-36-052 / [id number] Gription Acetabular Shell Sector 62mm Od Implanted:Qty: 1 on 07/15/2021 by Dashawn Silvestre MD at [facility] JointRight: Hip09/27/2029/ 1217-32-062 / [id number] Delta Ceramic Femoral Head +1.5 36mm Jaki 08/10 Taper Implanted:Qty: 1 on 07/15/2021 by Dashawn Silvestre MD at [facility] JointRight: Hip04/27/2026/ 1365-36-310 / [id number] Femoral Stem 08/10 Taper Size 7 Mi 133mm Implanted:Qty: 1 on 07/15/2021 by Dashawn Silvestre MD at [facility] JointRight: Hip10/25/2025/ 1570-13-135 / [id number] Stem Centralizer 12.0mm Cemented Implanted:Qty: 1 on 07/15/2021 by Dashawn Silvestre MD at [facility] JointRight: Hip09/27/2025/ 1376-21-000 / [id number] Flex [id number] - [id number] Implanted:Qty: 1 on 08/09/2018 by Isaias Mayen MD at [facility] LOCLeft: LegCORDIS/[id number]/10/[id number] / / [id number] Flex [id number] - [id number] Implanted:Qty: 1 on 08/09/2018 by Isaias Mayen MD at [facility] LOCLeft: LegCORDIS/[id number]/27/[id number] / / [id number] 6f Vip - [id number] Implanted:Qty: 1 on 08/09/2018 by Isaias Mayen MD at [facility] LOCRight: [facility][id number] / / [id number] R 1 X 40 Us - [id number] Implanted:Qty: 1 on 07/15/2021 by Dashawn Silvestre MD at [facility] LOC Right: Hip/ / [id number] Lv 1x40 Single - [id number] Implanted:Qty: 2 on 07/15/2021 by Dashawn Silvestre MD at [facility] LOC Right: HipZIMMER [id number] / / [id number] Procedures Procedure NamePriorityDate/TimeAssociated DiagnosisCommentsCREATININERoutine 05/13/2025 4:38 AM EDT TYPE AND ZBJGRNCjwdxye78/15/2025 5:09 AM EDT CBC AND ELECTRONIC VNPAAolqtin87/15/2025 5:09 AM EDT CBC, EDIF, PUZUEJLCFclazbu76/15/2025 5:09 AM EDT ZNTEETIJLTIapuhvc43/15/2025 5:09 AM EDT CBC AND ELECTRONIC VYETUnokmum90/14/2025 3:53 AM EDT CBC, EDIF, ODEMCWVOZwrbukk44/14/2025 3:53 AM EDT CHEM 6 (LYTES, BUN CREA)Heyywzg0505/11/2025 3:53 AM EDT HEPATIC FUNCTION PLHTOWkdregv83/14/2025 3:53 AM EDT VANCOMYCIN LEVEL, TROUGH (PRE DRUG LEVEL)Vkmcagt5505/10/2025 5:40 PM EDT HEMOGLOBIN & MBITVCFMSEBnjzyyc16/13/2025 5:40 PM EDT LOWER RESPIRATORY CULTURE, GEUYWHAVKRlbkbqj01/13/2025 4:30 AM EDT C REACTIVE GAWENUXLejdqrn34/13/2025 12:28 AM EDT SEDIMENTATION RATE, PUZMAIABNVdiovls47/13/2025 12:28 AM EDT VZWMLLAEQGKeegldb12/13/2025 12:28 AM EDT US ABDOMEN RUQ/LIVER/EGGvyngon46/12/2025 7:21 AM EDT HEPATITIS BATTERY, IEZOWVGZtpvtup53/12/2025 6:39 AM EDT CBC AND ELECTRONIC WEVGQmmpajo08/12/2025 3:37 AM EDT HEPATIC FUNCTION DGSYMLfiwbet86/12/2025 3:37 AM EDT PT,INR,BGNRzcneru24/12/2025 3:37 AM EDT PHOSPHATE, PVDRNFSISLdpfhgw56/12/2025 3:37 AM EDT FRXNVQPXPQbvpybg13/12/2025 3:37 AM EDT XEJRKCNYpxcmlx88/12/2025 3:37 AM EDT CHEM 7 (LYTES,BUN,CREA,GLUC)Bbrwmlx4405/09/2025 3:37 AM EDT CBC, EDIF, ZTCJFAFKLlvevwo06/12/2025 3:37 AM EDT XR CHEST (OUTSIDE IMAGE)Eboxmte3205/07/2025 CT CHEST (OUTSIDE IMAGE)Wvcoark0405/06/2025 from Last 3 Months Results * CREATININE (05/13/2025 4:38 AM EDT) Only the most recent of3 resultswithin the time period is included. ComponentValueRef RangeTest MethodAnalysis TimePerformed AtPathologist Signature Creatinine0.770.70 - 1.30 mg/dL05/13/2025 5:[address] [facility] LABORATORYeGFR, CKD-EPI, Male87>=60 mL/min/1.59j31105/13/2025 5:22 AM EDT [facility] LABORATORYComment:Reported eGFR is based on the CKD-EPI 2020 equation using creatinine, age, and sex.Specimen (Source) Anatomical Location / LateralityCollection Method / VolumeCollection Time Received TimeBloodVenipuncture / Bxqqrky7005/13/2025 4:38 AM EDT05/13/2025 4:53 AM EDT Narrative Authorizing ProviderResult TypeResult StatusAndglen Pineda MD CHEMISTRY ORDERABLESFinal ResultPerforming OrganizationAddressCity/State/ZIP CodePhone Number [facility] [address] [address] * (ABNORMAL) CBC AND ELECTRONIC DIFF (05/12/2025 5:09 AM EDT) Only the most recent of3 resultswithin the time period is included. ComponentValueRef RangeTest MethodAnalysis TimePerformed AtPathologist Signature WBC Count5.523.73 - 10.10 K/uL05/12/2025 5:[address] [facility] LABORATORYRBC Count3.23(L)4.38 - 5.83 M/uL05/12/2025 5:[address] [facility] YXMPKJURUJUgtqjbxhbi68.0(L)13.4 - 16.8 g/dL 05/12/2025 5:[address] [facility] LABORATORYHematocrit 29.7(L)39.6 - 48.8 %05/12/2025 5:[address] [facility] LABORATORYMean Cell Ymesol42.079.0 - 94.5 fL05/12/2025 5:[address] [facility] LABORATORYMean Cell Hgb31.026.1 - 33.3 pg05/12/2025 5:[address] [facility] LABORATORYMean Cell Hgb Conc33.731.9 - 36.5 g/dL05/12/2025 5:[address] [facility] LABORATORYRBC Smcotqjxvtzu42.5(H)10.9 - 14.3 %05/12/2025 5:[address] [facility] LABORATORYPlatelet Spfog072912 - 337 K/uL05/12/2025 5:[address] [facility] LAB[facility]ATORYMean Platelet Volume9.48.7 - 12.3 fL 05/12/2025 5:[address] [facility] LABORATORYDIFF STATUS Electronic Epnvjnklsqxv94/15/2025 5:[address] [facility] LABORATORYSegs + Bands Auto77.5%05/12/2025 5:[address] [facility] LABORATORYImmature Grans %1.8%05/12/2025 5:[address] [facility] LABORATORYLymphocyte % Auto10.7%05/12/2025 5:[address] [facility] LABORATORYMonocyte % Auto8.9%05/12/2025 5:[address] [facility] LABOR[facility]ORYEosinophil % Auto0.9%05/12/2025 5:[address] [facility] LABOR[facility]ORYBasophil % Auto0.2%05/12/2025 5:[address] [facility] LABORATORYNucleated RBC0.0<=0.2 /100 WBC05/12/2025 5:[address] [facility] LABORATORYSegs + Bands,Absolute Auto4.281.57 - 6.19 K/uL05/12/2025 5:[address] [facility] LABORATORYImmature Grans Absolute0.10(H)<=0.07 K/uL 05/12/2025 5:[address] [facility] LAB[facility]ORYAbs Lymph Auto0.59(L)0.83 - 3.57 K/uL05/12/2025 5:[address] [facility] LABORATORYAbs Kimball Auto0.490.24 - 0.93 K/uL05/12/2025 5:[address] [facility] LABORATORYAbs Eos Auto0.050.00 - 0.48 K/uL 05/12/2025 5:[address] [facility] LABORATORYAbs Baso Auto <0.040.00 - 0.09 K/uL05/12/2025 5:[address] [facility] LABORATORYSpecimen (Source)Anatomical Location / LateralityCollection Method / VolumeCollection TimeReceived TimeBloodVenipuncture / Lanznpb8405/12/2025 5:09 AM EDT05/12/2025 5:27 AM EDT Narrative Authorizing ProviderResult TypeResult StatusDanica Aguila MDHEMATOLOGY ORDERABLES Final ResultPerforming OrganizationAddressCity/State/ZIP CodePhone Number [facility] [address] [place] [phone] * TYPE AND SCREEN (05/12/2025 5:09 AM EDT)ComponentValueRef RangeTest Method Analysis TimePerformed AtPathologist SignatureABO/RH(D) TYPEO POS05/12/2025 6:[address] [facility] BLOOD BANKSpecimen Qzjxrgcnxu59/18/2025 23:5909 6:[address] [facility] BLOOD BANKANTIBODY SGUJPKOGX92/15/2025 6:[address] [facility] BLOOD BANKSpecimen (Source) Anatomical Location / LateralityCollection Method / VolumeCollection Time Received TimeBloodBLOOD SPECIMEN / UnknownVenipuncture / Idvdlqu6205/12/2025 5:09 AM EDT05/12/2025 5:22 AM EDT Narrative Authorizing ProviderResult TypeResult StatusDanica Aguila MDBLOOD BANK ORDERABLES Final ResultPerforming OrganizationAddressCity/State/ZIP CodePhone Number [facility] BLOOD BANK [address] [address], [place] * CHEM 6 (LYTES, BUN CREA) (05/11/2025 3:53 AM EDT)ComponentValueRef RangeTest MethodAnalysis TimePerformed AtPathologist MlodvkofpTWZ784 - 25 mg/dL 05/11/2025 4:[address] [facility] GJOSDITCSSRfyoyu315 135 - 145 mmol/L05/11/2025 4:[address] [facility] LABORATORYPotassium3.63.5 - 5.0 mmol/L05/11/2025 4:[address] [facility] XVIMEKYNMSMtoldzms48221 - 108 mmol/L05/11/2025 4:[address] [facility] TPTOIQYOMSVC33275 - 31 mmol/L05/11/2025 4:[address] [facility] LABORATORYCreatinine0.890.70 - 1.30 mg/dL05/11/2025 4:[address] [facility] Bun/Crea Uypgv569005/11/2025 4:[address] [facility] LABORATORYAnion Cyd977 - 17 mmol/L05/11/2025 4:[address] [facility] LABORATORYeGFR, CKD-EPI, Male83>=60 mL/min/1.33j90405/11/2025 4:[address] [facility] LABORATORYComment:Reported eGFR is based on the CKD-EPI 2020 equation using creatinine, age, and sex.Specimen (Source)Anatomical Location / LateralityCollection Method / VolumeCollection TimeReceived TimeBloodVenipuncture / Klbxtox5205/11/2025 3:53 AM EDT05/11/2025 4:16 AM EDT Narrative Authorizing ProviderResult TypeResult StatusMegarry Aguila MDCHEMISTRY ORDERABLES Final ResultPerforming OrganizationAddressCity/State/ZIP CodePhone Number [facility] [address] [address] * (ABNORMAL) HEPATIC FUNCTION PANEL (05/11/2025 3:53 AM EDT) Only the most recent of2 resultswithin the time period is included. ComponentValueRef RangeTest MethodAnalysis TimePerformed AtPathologist Signature Albumin3.3(L)3.5 - 5.0 g/dL05/11/2025 4:[address] [facility] LABORATORYBilirubin Direct0.2<0.3 mg/dL05/11/2025 4:[address] [facility] LABORATORYBilirubin Total0.6<1.5 mg/dL05/11/2025 4:[address] [facility] YYGMSXCCWCDUW5385 - 126 U/L05/11/2025 4:[address] [facility] BVNMCBZZLIQXH79(H)10 - 52 U/L05/11/2025 4:[address] [facility] EBNYTPBKYGLCG4864 - 39 U/L 05/11/2025 4:[address] [facility] LABORATORYTotal Protein 6.3(L)6.4 - 8.3 g/dL05/11/2025 4:[address] [facility] LABORATORYSpecimen (Source)Anatomical Location / LateralityCollection Method / VolumeCollection TimeReceived TimeBloodVenipuncture / Klmanlb4705/11/2025 3:53 AM EDT05/11/2025 4:16 AM EDT Narrative Authorizing ProviderResult TypeResult StatusDanica Aguila MDCHEMISTRY ORDERABLES Final ResultPerforming OrganizationAddressCity/State/ZIP CodePhone Number [facility] [address] [address] * (ABNORMAL) HEMOGLOBIN & HEMATOCRIT (05/10/2025 5:40 PM EDT)ComponentValueRef RangeTest MethodAnalysis TimePerformed AtPathologist QgwpjzcljIwsiklaypy85.0 (L)13.4 - 16.8 g/dL05/10/2025 6:[address] [facility] LABORATORYComment:Warmed to 21KRjujfrnoyc76.5(L)39.6 - 48.8 %05/10/2025 6:[address] [facility] LABORATORYSpecimen (Source)Anatomical Location / LateralityCollection Method / VolumeCollection TimeReceived Time BloodVenipuncture / Gehmwks4305/10/2025 5:40 PM EDT05/10/2025 6:02 PM EDT Narrative Authorizing ProviderResult TypeResult StatusDanica Aguila MDHEMATOLOGY ORDERABLES Final ResultPerforming OrganizationAddressCity/State/ZIP CodePhone Number [facility] [address] [address] * VANCOMYCIN LEVEL, TROUGH (PRE DRUG LEVEL) (05/10/2025 5:40 PM EDT)Component ValueRef RangeTest MethodAnalysis TimePerformed AtPathologist Signature Vancomycin, Xwoiir46.9Therapeutic Range: 10.0-20.0 mcg/mL mcg/mL05/10/2025 6:[address] [facility] LABORATORYSpecimen (Source) Anatomical Location / LateralityCollection Method / VolumeCollection Time Received TimeBloodVenipuncture / Ckzudbe5305/10/2025 5:40 PM EDT05/10/2025 5:57 PM EDT Narrative Authorizing ProviderResult TypeResult StatusMelpenny Awad RPHDRUG/TOXICOLOGY Final ResultPerforming OrganizationAddressCity/State/ZIP CodePhone Number [facility] [address] [address] * LOWER RESPIRATORY CULTURE, BACTERIAL (05/10/2025 4:30 AM EDT)ComponentValueRef RangeTest MethodAnalysis TimePerformed AtPathologist SignatureCultureGrowth 05/12/2025 7:16 AM [facility] LABORATORYCultureModerate Growth Common oropharyngeal dmomovvc90/15/2025 7:16 AM [facility] LABORATORYGram StainNeutrophils, Rare05/12/2025 7:16 AM [facility] LABORATORYGram StainContaminating bacteria and epithelials, LIGHT 05/12/2025 7:16 AM [facility]IN[facility] LABORATORYGram StainSpecimen is of very poor quality and results may be compromised suggest recollection if clinically aaaaqaweo77/15/2025 7:16 AM [facility] Specimen (Source)Anatomical Location / LateralityCollection Method / Volume Collection TimeReceived TimeRespiratorySPUTUM SPECIMEN / Conhgwg4205/10/2025 4:30 AM EDT05/10/2025 6:48 AM EDT Narrative Authorizing ProviderResult TypeResult StatusMegarry Aguila MDMICROBIOLOGY - GENERAL ORDERABLESFinal ResultPerforming OrganizationAddressCity/State/ZIP CodePhone Number [facility] [address] [place] [address] * (ABNORMAL) C REACTIVE PROTEIN (05/10/2025 12:28 AM EDT)ComponentValueRef Range Test MethodAnalysis TimePerformed AtPathologist SignatureC Reactive Protein 37.48(H)<10.00 mg/L05/10/2025 1:[address] [facility] LABORATORYSpecimen (Source)Anatomical Location / LateralityCollection Method / VolumeCollection TimeReceived TimeBloodVenipuncture / Psxjgvy4305/10/2025 12:28 AM EDT05/10/2025 12:51 AM EDT Narrative Authorizing ProviderResult TypeResult StatusJason A Labroo DPMIMMUNOLOGY ORDERABLESFinal ResultPerforming OrganizationAddressCity/State/ZIP CodePhone Number [facility] [address] [address] * (ABNORMAL) SEDIMENTATION RATE, AUTOMATED (05/10/2025 12:28 AM EDT)Component ValueRef RangeTest MethodAnalysis TimePerformed AtPathologist SignatureESR Qdsuzqhlfe008(H)<30 mm/hr05/10/2025 1:[address] [facility] LABORATORYSpecimen (Source)Anatomical Location / LateralityCollection Method / VolumeCollection TimeReceived TimeBloodVenipuncture / Unknown 05/10/2025 12:28 AM EDT05/10/2025 12:46 AM EDT Narrative Authorizing ProviderResult TypeResult StatusJason A Labroo DPMHEMATOLOGY ORDERABLESFinal ResultPerforming OrganizationAddressCity/State/ZIP CodePhone Number [facility] [address] [address] * US ABDOMEN RUQ/LIVER/GB (05/09/2025 7:21 AM EDT)Anatomical RegionLaterality ModalityAbdomenUltrasoundSpecimen (Source)Anatomical Location / Laterality Collection Method / VolumeCollection TimeReceived Time05/09/2025 7:38 AM EDT Impressions 05/09/2025 7:40 AM EDT IMPRESSION: 1. ??Hepatic steatosis. 2. ??Gallstones without cholecystitis. Narrative 05/09/2025 7:40 AM EDT EXAM: US ABDOMEN RUQ/LIVER/GB, 05/09/2025 07:21 AM CLINICAL INDICATIONS: transaminitis elevation COMPARISON: No prior studies available for comparison. TECHNIQUE: Real-time ultrasound evaluation of the right upper quadrant was performed utilizing a curved array transducer. Duplex scan is performed. Color flow images and spectral waveforms obtained. FINDINGS: ?? Technically difficult study due to bowel gas [...] in caliber measuring 4 mm in diameter. ?? Right Kidney: Limited evaluation of the right kidney demonstrates no hydronephrosis. Bipolar length is 10.4 cm. Benign cyst in the upper pole. Ascites: There is no ascites in the visualized abdomen. Procedure Note Kayla Escobedo MD - 05/09/2025 EXAM: US ABDOMEN RUQ/LIVER/GB, 05/09/2025 07:21 AM CLINICAL INDICATIONS: transaminitis elevation COMPARISON: No prior studies available for comparison. TECHNIQUE: Real-time ultrasound evaluation of the right upper quadrantwas performed utilizing a curved array transducer. Duplex scan is performed.Color flow images and spectral waveforms obtained. FINDINGS: Technically difficult study due to bowel gas and uncontrollablecoughing. Pancreas: The visualized pancreas is sonographically normal in appearance. Liver: Hepatic steatosis. Surface contour is smooth. There is no evidence of an intrahepatic mass or biliary ductal dilation. Doppler ultrasound demonstrates hepatopetal flow in the main portal vein.Flow velocity is 28.4 cm/sec which is normal. Gall Bladder: The gallbladder is normally distended. Small stones near the fundus.Wall thickness is within normal limits. No pericholecystic fluid. Thesonographic Cee's sign was reported as negative. The common duct is normal incaliber measuring 4 mm in diameter. Right Kidney: Limited evaluation of the right kidney demonstrates no hydronephrosis.Bipolar length is 10.4 cm. Benign cyst in the upper pole. Ascites: There is no ascites in the visualized abdomen. IMPRESSION IMPRESSION: 1. Hepatic steatosis. 2. Gallstones without cholecystitis. Authorizing ProviderResult TypeResult StatusAndglen Pineda MDUS ORDERABLESFinal Result * HEPATITIS BATTERY, CHRONIC (05/09/2025 6:39 AM EDT)ComponentValueRef RangeTest MethodAnalysis TimePerformed AtPathologist SignatureHepatitis B Surface Ag QixlmqalZqxfcfyp65/12/2025 11:[address] [facility]Hep B Surface RoZqjdpyvoWftfjjxs72/12/2025 11:[address] [facility]Hep B Core Ab,Total (IgG+IgM)Negative Wduoavec42/12/2025 11:[address] [facility] Hepatitis C YlphnokkYqcmoufqZisnifap79/12/2025 11:[address] [facility]ATORYSpecimen (Source)Anatomical Location / Laterality Collection Method / VolumeCollection TimeReceived TimeBloodVenipuncture / Oekrkko6605/09/2025 6:39 AM EDT05/09/2025 8:55 AM EDT Narrative Authorizing ProviderResult TypeResult StatusAndglen Pineda MD IMMUNOLOGY ORDERABLESFinal ResultPerforming OrganizationAddressCity/State/ZIP CodePhone Number [facility] [address] [place] [address] * (ABNORMAL) PT,INR,PTT (05/09/2025 3:37 AM EDT)ComponentValueRef RangeTest MethodAnalysis TimePerformed AtPathologist UiuxfsyqkAH62.4(H)11.9 - 14.2 sec 05/09/2025 4:[address] [facility] LABORATORYINR1.10.9 - 1. 4:[address] [facility] ZHMTAQBLVAPTI96.6 (L)24.0 - 34.3 sec05/09/2025 4:[address] [facility] LABORATORYComment:Specimen integrity checked.Specimen (Source)Anatomical Location / LateralityCollection Method / VolumeCollection TimeReceived Time BloodVenipuncture / Uzlsmtt8005/09/2025 3:37 AM EDT05/09/2025 3:56 AM EDT Narrative Authorizing ProviderResult TypeResult StatusAndglen Pineda MD COAGULATIONFinal ResultPerforming OrganizationAddressCity/State/ZIP CodePhone Number [facility] [address] [address] * CALCIUM (05/09/2025 3:37 AM EDT)ComponentValueRef RangeTest MethodAnalysis TimePerformed AtPathologist SignatureCalcium9.18.6 - 10.5 mg/dL05/09/2025 4:[address] [facility]ORATORYSpecimen (Source)Anatomical Location / LateralityCollection Method / VolumeCollection TimeReceived Time BloodVenipuncture / Unlhzzb6805/09/2025 3:37 AM EDT05/09/2025 3:55 AM EDT Narrative Authorizing ProviderResult TypeResult StatusAndglen Pineda MD CHEMISTRY ORDERABLESFinal ResultPerforming OrganizationAddressCity/State/ZIP CodePhone Number [facility] [address] [address] * CHEM 7 (LYTES,BUN,CREA,GLUC) (05/09/2025 3:37 AM EDT)ComponentValueRef Range Test MethodAnalysis TimePerformed AtPathologist RkxxufrtjBiumnc111108 - 145 mmol/L05/09/2025 4:[address] [facility] Potassium4.23.5 - 5.0 mmol/L05/09/2025 4:[address] [facility] DVLEREYNFQFmulwdyv87604 - 108 mmol/L05/09/2025 4:[address] [facility] ABZJIYVZCGQK30096 - 31 mmol/L05/09/2025 4:[address] [facility] XMPFGNTDDCSgpykhi967Pwngfbgyzi: 70-179 mg/dL; Fastin-99 mg/dL05/09/2025 4:[address] [facility] ILKWHPVRMTRIP912 - 25 mg/dL05/09/2025 4:[address] [facility] LABORATORYCreatinine0.920.70 - 1.30 mg/dL05/09/2025 4:[address] [facility] LABORATORYBun/Crea Ppzyj2622/12/2025 4:[address] [facility] LABORATORYOsmolality (Calculated)557140 - 305 mOsm/kg05/09/2025 4:[address] [facility] LABORATORYAnion Lmb295 - 17 mmol/L05/09/2025 4:[address] [facility] LABORATORYeGFR, CKD-EPI, Male81>=60 mL/min/1.70n48305/09/2025 4:[address] [facility] LABORATORYComment:Reported eGFR is based on the CKD-EPI 2020 equation using creatinine, age, and sex.Specimen (Source)Anatomical Location / LateralityCollection Method / VolumeCollection TimeReceived TimeBloodVenipuncture / Qukabbj8505/09/2025 3:37 AM EDT05/09/2025 3:55 AM EDT Narrative Authorizing ProviderResult TypeResult StatusJose Manuel Pineda MD CHEMISTRY ORDERABLESFinal ResultPerforming OrganizationAddressCity/State/ZIP CodePhone Number [facility] [address] [address] * PHOSPHATE, INORGANIC (05/09/2025 3:37 AM EDT)ComponentValueRef RangeTest MethodAnalysis TimePerformed AtPathologist SignaturePhosphorous3.22.2 - 4.6 mg/dL05/09/2025 4:[address] [facility] Specimen (Source)Anatomical Location / LateralityCollection Method / Volume Collection TimeReceived TimeBloodVenipuncture / Ynboapi1805/09/2025 3:37 AM EDT 05/09/2025 3:55 AM EDT Narrative Authorizing ProviderResult TypeResult StatusAndglen Pineda MD CHEMISTRY ORDERABLESFinal ResultPerforming OrganizationAddressCity/State/ZIP CodePhone Number [facility] [address] [address] * MAGNESIUM (05/09/2025 3:37 AM EDT)ComponentValueRef RangeTest MethodAnalysis TimePerformed AtPathologist SignatureMagnesium2.01.6 - 2.6 mg/dL05/09/2025 4:24 AM [facility] LABORATORYSpecimen (Source) Anatomical Location / LateralityCollection Method / VolumeCollection Time Received TimeBloodVenipuncture / Fkifuna8205/09/2025 3:37 AM EDT05/09/2025 3:55 AM EDT Narrative Authorizing ProviderResult TypeResult StatusJose Manuel Pineda MD CHEMISTRY ORDERABLESFinal ResultPerforming OrganizationAddressCity/State/ZIP CodePhone Number [facility] [address] [address] * XR CHEST (OUTSIDE IMAGE) (05/07/2025)Specimen (Source)Anatomical Location / LateralityCollection Method / VolumeCollection TimeReceived Time05/07/2025 Narrative RADIOLOGY - 05/09/2025 3:06 PM EDT Outside Imaging Study for Support of Clinical Care. This study was sent from an outside facility to [facility] for support of clinical care of the patient within the [facility]. Procedure Note [facility] Outside Orders, External Images - 05/09/2025 Outside Imaging Study for Support of Clinical Care. This study was sentfrom an outside facility to [facility] for support of clinical care of thepatient within the [facility]. Authorizing ProviderResult TypeResult StatusDanica Aguila MDDIAGNOSTIC IMAGING ORDERABLESFinal ResultPerforming OrganizationAddressCity/State/ZIP CodePhone Number RADIOLOGY * CT CHEST (OUTSIDE IMAGE) (05/06/2025)Specimen (Source)Anatomical Location / LateralityCollection Method / VolumeCollection TimeReceived Time05/06/2025 Narrative RADIOLOGY - 05/09/2025 3:05 PM EDT Outside Imaging Study for Support of Clinical Care. This study was sent from an outside facility to [facility] for support of clinical care of the patient within the [facility]. Procedure Note [facility] Outside Orders, External Images - 05/09/2025 Outside Imaging Study for Support of Clinical Care. This study was sentfrom an outside facility to [facility] for support of clinical care of thepatient within the [facility]. Authorizing ProviderResult TypeResult StatusMegarry Aguila MDCT ORDERABLESFinal ResultPerforming OrganizationAddressCity/State/ZIP CodePhone Number RADIOLOGY from Last 3 Months Insurance * Guarantor: Tristin Powell Sr. EAcanayeilunt TypeRelation to PatientDate of BirthPhone Billing AddressPersonal/FpzuujXtvc1940 [address] [id number] * Guarantor: Tristin Powell Sr.unt TypeRelation to PatientDate of BirthPhone Billing AddressPersonal/UhdjydVurx1939 [address] [place] [phone] Advance Directives For more information, please contact: [phone] (7:30 AM - 6PM Lory/[facility], Monday-Monday) TypeDate RecordedPatient RepresentativeExplanationHealthCare Power of New Grad Rn 10/08/2018 * Full Code (Latest Code Status on File) Date ActivatedDate InactivatedComments05/09/2025 4:40 AM * Full Code Date ActivatedDate NvabpropfqyLxvfbjcz57/18/2021 2:40 PM05/09/2025 4:40 AM * Full Code Date ActivatedDate InactivatedComments09/03/2018 11:29 AM07/15/2021 2:40 PM * Full Code Date ActivatedDate InactivatedComments09/01/2011 7:48 AM09/04/2011 4:13 PM NameRelationshipHealthcare Agent RelationshipCommunicationJudy Ann MarshallCleveland Clinic Care Agent* Care Teams Team MemberRelationshipSpecialtyStart DateEnd Date Nikko Bird MD [address] [place] [address] PCP - GeneralFamily Kwltzanj69/4/18
--- OUTSIDE RECORDS SUMMARY | 2025-06-18 10:38 | XMS_ITS ---
Author Organization [facility] Address [address] [place] [address] Care Team Providers Care Hook Loader Name Role Phone Nikko Bird MD Primary Care Provider [phone] Active Problems ProblemNoted DateDiagnosed DateBronchiectasis, lzlolbvywbahj07/10/2025Acquired absence of left leg below knee07/22/2024Other complications of amputation stump 4Coronary artery wubvbjw3106/11/2024NSTEMI (non-ST elevated myocardial infarction)05/28/2024Hx of CABG05/28/2024Secondary hypercoagulable state 4Pulmonary hypertension, /30/2024Acute cystitis without clxemhoen70/25/2024 Overview (04/22/2024): Last Assessment & Plan: Add Probiotic to help replenish the good bacteria that are destroyed by the Antibiotics Florastor Florajen Align or try Activia in Yogurt Probiotics reduce the risk of antibiotic induced diarrhea Other yzggglqfatyin61/25/2024 Overview (04/22/2024): Last Assessment & Plan: Has blood thinner Flu vaccine need4Routine general medical examination at health care cqwunllt00 Overview (10/09/2023): Last Assessment & Plan: Colonoscopy [...] screen for Anuerysm AAA (abdominal aortic aneurysm) Overview (10/09/2023): Last Assessment & Plan: Sees Cardiology Has follow up with cardiology and do 6 month regular US Acute exacerbation of chronic obstructive pulmonary rdayfqr53 Abnormal radiographic cinufnpncsr90cute on chronic heart failure with preserved ejection jlxviomc84rthritis04/09/2023 10/09/2023sthmatic ilctijlssz96arotid artery stenosis Overview (10/09/2023): Last Assessment & Plan: Getting Carotid dopplers Mupgkxeb07hronic kidney disease due to qdivfvgdknal41/13/2023 10/09/20233511Jrcnuypnirvh91Elevated erythrocyte sedimentation rateLeft sciatic nerve painNeuropathy Other chronic painaresthesia of skin aroxysmal atrial zwmowwxlszof80hantom limb painolymyalgia oqeuayyzsv17rimary osteoarthritis of right hipSeasonal allergic rhinitis Sinusitis Overview (10/09/2023): Last Assessment & Plan: I discussed with patient that while on prednisone, do not take any NSAIDs like Ibuprofen, Naprosyn,Alleve or motrin. Watch for any side effects like abdominal pain and nausea. Take the prednisone with food or milk. Prednisone may increase appetite. While on prednisone, watch for any sugar elevations. Stage 3a chronic kidney phodpth49hronic diastolic (congestive) heart brlilds3704/09/20235192Nhihzvdt52Lumbosacral spondylosis without ggovryiwit34Mitral valve regurgitation 11/21/2022Inguinal pain11/21/20223502Zrxgoqb97/27/2023osterior tibial tendinitis of right leg11/07/2022Hematoma of arm, left, initial appdivoad59/10/2023 Overview (11/21/2022): Last Assessment & Plan: 82 [...] acquired pneumonia of left lower lobe of lung11/03/2022ulmonary ruxhee2601/21/20222061Dgrgjmvbpy17/24/2022Thoracic aortic aneurysm without rupture 01/12/2022oronary artery disease involving quechan coronary artery of quechan heart without angina epuvdydk14/18/2021/P total hip eupkzcdksacg08/18/2021/P transmetatarsal amputation of foot, left07/15/2021ortic valve regurgitation 05/07/2021Peripheral arterial occlusive onxsnjv6401/09/2019Gangrene of left foot 10/04/2018Coronary artery disease involving coronary bypass graft of quechan heart without angina okmkyutv07/09/2019 Overview (11/21/2022): Last Assessment & Plan: Patient with remote coronary artery bypass grafting to 3 vessels. Patient denies chest pain at thistime. Daxbxgdnnrhbcpuurd15/09/2019 Overview (11/21/2022): Last Assessment & Plan: Patient with history of hypercholesteremia. Plan: ?? Continue high intensity statin medication ?? Risk factor modification. Class 1 obesity with body mass index (BMI) of 31.0 to 31.9 in adult09/05/2018 Overview (11/21/2022): Last Assessment & Plan: Patient [...] a goal BMI <30. Critical lower limb umyqwxua29/08/2019 Overview (11/21/2022): Last Assessment & Plan: Pt s/p LLE angiogram with Dr Hahn who feels that the pt has no further endovascular options. He has consulted Dr. Millan for a possible tibial bypass. Pt s/p LLE critical limb ischemia [place] class 4 rest pain with distal discoloration to his toes. Pt is s/p L pop angioplasty with stent placement 08/09 at [facility] in [place], [place]. Ptwas placed on Xarelto and ASA. Pt represented to that hospiral 08/30 with increased LLE pain. On exampt has palpable bilateral femoral pulses and popliteal pulses. Unable to obtain by doppler BLE R orL DP/PT pulses. LLE is discolored *see images in this note. Plan: ?? Continue heparin at this time ?? Continue Rooke boot to left lower extremity. ?? Continue ASA, Plavix and high intensity statin medication. ?? Will sign off Peripheral arterial yflzvyc7108/10/2018 Overview (11/21/2022): Last Assessment & Plan: S/P angiogram with Dr. Mayen Follow up after discharged as previously scheduled Last Assessment & Plan: S/p L fem-peroneal (GSV) bypass per Dr. Millan in 2019 in the setting of CLI. S/p L TMA shortly thereafter which successfully healed. ?? Established with Dr. Millan for ongoing surveillance of bypass graft. R YAMILE in March 2022 was known to be reduced (0.5) Pure fiqcprrthsynmlbrhgjh92/14/2018 Overview (11/21/2022): Last Assessment & Plan: Resume home medications Follow up after discharged with PCP Obesity (BMI 30.0-34.9)08/10/2018 Overview (11/21/2022): Last Assessment & Plan: Diet and lifestyle modifications strongly encouraged Follow up after discharged with PCP for further treatment options Intermittent kswlapcvizth27/12/2018 Overview (11/21/2022): Added automatically from request for surgery [id number] Last Assessment & Plan: Heparin drip initiated, pharmacy to manage per protocol ASA and Plavix started Cardiovascular surgeon consulted PT/OT evaluation and treatment Monitor labs, VS and telemetry as ordered Pain management Last Assessment & Plan: S/P Left Lower Extremity Angiogram with ballooning and stent 08/09/2018 Post op orders per surgeon DVT/GI prophylaxis Monitor labs, VS and telemetry as ordered Pain management Chprvpeni81/04/9818Jvsggdnce69/18/2014bdominal pain07/11/2014Hypertensive nfpbozog59/22/2014 Overview (11/21/2022): Last Assessment & Plan: Resume home medications as ordered Follow up after discharged with PCP Labetalol PRN for SBP> 160 Monitor VS as ordered Last Assessment & Plan: Patient with history of hypertension. Blood pressure at this time 132/62. Plan: ?? Continue medications as prescribed. Disorder of lipid tvgmmiougl38/27/2428Fvpyiudtm82/14/2014Chest pain08/30/2013 Coronary dvoyjjkxmeptnqk63/03/2014Mixed vougjzyizcpshv86/03/2014Dyspnea 08/30/2013Preinfarction knouvwch98/03/2014vascular necrosis of bone of hip 09/04/2011 Overview (11/21/2022): Right hip Herpes pmgilu3309/04/2011Pain of left lower erfireauq35/08/2012 Overview (11/21/2022): Last Assessment & Plan: -Presented to [facility] 09/04/2018 as a transfer from [place] for second opinion regarding left lower extremity [...] in pain -Reports pain is uncontrolled with [employer] Dilaudid pump, and pain does not decrease [...] Fernandez RN -Please call with questions Prostate lluctx0509/04/2011Chronic ischemic heart rntuojm60 Impotence of organic mygqtm01enign essential hypertension 07/04/2008 Overview (04/22/2024): Last Assessment & Plan: Our specific goals, for your hypertension, is to keep your blood pressure less than 140/90, and theimportance of weight control. We made recommendations on [...] plan information found. Lifetime Dose Tracking * ChemicalLifetime DoseAutomatic EntryManual EntryFluoro Time18.04 minutes0 wfxuayb89.04 minutesAir Kerma1,177.89 mGy0 mGy1,177.89 mGy
--- OUTSIDE RECORDS SUMMARY | 2025-06-18 10:38 | XMS_ITS | Clinical Summary ---
Author Organization [facility] Address [address] [place] [address] Care Team Providers Care Tap Dancer Name Role Phone Nikko Bird MD Primary Care Provider [phone] Allergies Active AllergyReactionsCriticalityNoted HgchYxdiaiykFvbvtoocgnz97/28/2019 Elevated blood pressure, GI intolerance/ nausea/vomiting SrrpsgfttRhoydcpdlevPcga95/30/2017 Medications MedicationSigDispense QuantityRefillsLast FilledStart DateEnd DateStatus albuterol 90 mcg/actuation inhaler 10/14/2022ctive rivaroxaban (Xarelto) 2.5 mg tablet Take 2.5 mg by mouth in the morning and 2.5 mg in the evening.11/27/2019Active losartan (Cozaar) 50 mg tablet Take 50 mg by mouth in the morning.Active aspirin 81 mg EC tablet Take 81 mg by mouth.Active oxyCODONE-acetaminophen (Percocet) 5-325 mg tablet 11/10/2022ctive ipratropium-albuteroL (Duo-Neb) 0.5-2.5 mg/3 mL nebulizer solution 11/29/2022ctive metoprolol tartrate (Lopressor) 50 mg tablet Take 50 mg by mouth in the morning and at bedtime.10/26/2022ctive zolpidem (Ambien) 10 mg tablet Take 10 mg by mouth if needed each day.09/06/2023ctive omeprazole (PriLOSEC) [address] capsule Take 20 mg by mouth in the morning.09/19/2023ctive montelukast (Singulair) 10 mg tablet Take 10 mg by mouth at bedtime.Active nitroglycerin (Nitrostat) 0.4 mg SL tablet Indications:Coronary artery disease involving [place] coronary artery of [place] heart without angina pectorisPlace 1 tablet (0.4 mg) under the tongue every 5 (five) minutes if needed for chest pain. May repeat dose every 5 minutes for up to 3 doses total. 25 tablet 4Active fluticasone (Flonase) 50 mcg/actuation nasal spray Administer 1 spray into each nostril in the morning. Shake gently. Before first use, prime pump. After use, clean tip and replace cap.Active furosemide (Lasix) 20 mg tablet Take 20 mg by mouth if needed.05/07/2024ctive azelastine (Astelin) 137 mcg (0.1 %) nasal spray Administer 1 spray into each nostril two times daily.11/04/2024tive atorvastatin (Lipitor) 80 mg tablet Indications:Mixed hyperlipidemiaTAKE 1 TABLET EVERY MORNING 90 tablet 5Active Active Problems ProblemNoted DateDiagnosed DateBronchiectasis, uqsrzkgtidcll27/10/2025Acquired absence of left leg below knee07/22/2024Other complications of amputation stump 07/22/2024oronary artery ygezhro1306/11/2024NSTEMI (non-ST elevated myocardial infarction)05/28/2024Hx of CABG05/28/2024Secondary hypercoagulable state 4Pulmonary hypertension, jazktlzxkgp07/30/2024Acute cystitis without ujdqdlmpf39/25/2024 Overview (04/22/2024): Last Assessment & Plan: Add Probiotic to help replenish the good bacteria that are destroyed by the Antibiotics Florastor Florajen Align or try Activia in Yogurt Probiotics reduce the risk of antibiotic induced diarrhea Other cqyfzofnvhpgf99/25/2024 Overview (04/22/2024): Last Assessment & Plan: Has blood thinner Flu vaccine need4Routine general medical examination at health care dfbphsno28 Overview (10/09/2023): Last Assessment & Plan: Colonoscopy [...] US Acute exacerbation of chronic obstructive pulmonary igwcttn45 Abnormal radiographic wbxvskzyzwq69cute on chronic heart failure with preserved ejection avrtqpkk00rthritis04/09/2023 10/09/2023sthmatic uooxanercq40arotid artery stenosis Overview (10/09/2023): Last Assessment & Plan: Getting Carotid dopplers Svbkosgc67hronic kidney disease due to dgtfyixdrgbm63/13/2023 10/09/20235391Zdgmzzfrobaa42Elevated erythrocyte sedimentation rateLeft sciatic nerve painNeuropathy Other chronic painaresthesia of skin aroxysmal atrial xnnzdvoglhhf80hantom limb painolymyalgia vtjkkotpre12rimary osteoarthritis of right hip/07/2024Seasonal allergic rhinitis Sinusitis Overview (10/09/2023): Last Assessment & Plan: I discussed with patient that while on prednisone, do not take any NSAIDs like Ibuprofen, Naprosyn,Alleve or motrin. Watch for any side effects like abdominal pain and nausea. Take the prednisone with food or milk. Prednisone may increase appetite. While on prednisone, watch for any sugar elevations. Stage 3a chronic kidney nqlzdrs22hronic diastolic (congestive) heart needbfv2604/09/20232932Ijenmvlu52/25/202308/03/2023Lumbosacral spondylosis without mwrrvrlejm42Mitral valve regurgitation 11/21/2022Inguinal pain11/21/20224296Shcmscl88/27/2023osterior tibial tendinitis of right leg11/07/2022Hematoma of arm, left, initial /10/2023 Overview (11/21/2022): Last Assessment & Plan: 82 [...] pneumonia of left lower lobe of lung11/03/2022ulmonary njkuov1301/21/20226104Thhshxtfrd79/24/2022Thoracic aortic aneurysm without rupture 01/12/2022oronary artery disease involving [place] coronary artery of [place] heart without angina lpkvwyqd52/18/2021/P total hip dwvrdwxpsnyb46/18/2021S/P transmetatarsal amputation of foot, left1Aortic valve regurgitation 1Peripheral arterial occlusive mvzyqnu3401/09/2019Gangrene of left foot 10/04/2018Coronary artery disease involving coronary bypass graft of [place] heart without angina /09/2019 Overview (11/21/2022): Last Assessment & Plan: Patient with remote coronary artery bypass grafting to 3 vessels. Patient denies chest pain at thistime. Ztsiuvtbmnlzneiquo45/09/2019 Overview (11/21/2022): Last Assessment & Plan: Patient [...] a goal BMI <30. Critical lower limb toqdkihh67/08/2019 Overview (11/21/2022): Last Assessment & Plan: Pt s/p LLE angiogram with Dr Hahn who feels that the pt has no further endovascular options. He has consulted Dr. Millan for a possible tibial bypass. Pt s/p LLE critical limb ischemia [place] class 4 rest pain with distal discoloration to his toes. Pt is s/p L pop angioplasty with stent placement 08/09 at [facility] in [place], [place]. Ptwas placed on Xarelto and ASA. [...] medication. ?? Will sign off Peripheral arterial zhzocdx2708/10/2018 Overview (11/21/2022): Last Assessment & Plan: S/P angiogram with Dr. Mayen Follow up after discharged as previously scheduled Last Assessment & Plan: S/p L fem-peroneal (GSV) bypass per Dr. Millan in 2018 in the setting of CLI. S/p L TMA shortly thereafter which successfully healed. ?? Established with Dr. Millan for ongoing surveillance of bypass graft. R YAMILE in March 2022 was known to be reduced (0.5) Pure mdvuejjfcjpwcjncrzop45/14/2018 Overview (11/21/2022): Last Assessment & Plan: Resume home medications Follow up after discharged with PCP Obesity (BMI 30.0-34.9)08/10/2018 Overview (11/21/2022): Last Assessment & Plan: Diet and lifestyle modifications strongly encouraged Follow up after discharged with PCP for further treatment options Intermittent awpgvfpvoarq94/12/2018 Overview (11/21/2022): Added automatically from request for surgery [id number] Last Assessment & Plan: Heparin drip initiated, pharmacy to manage per protocol ASA and Plavix started Cardiovascular surgeon consulted PT/OT evaluation and treatment Monitor labs, VS and telemetry as ordered Pain management Last Assessment & Plan: S/P Left Lower Extremity Angiogram with ballooning and stent 08/09/2018 Post op orders per surgeon DVT/GI prophylaxis Monitor labs, VS and telemetry as ordered Pain management Zxlqevggp24/04/1697Prxbyjorc00/18/2014bdominal pain07/11/2014Hypertensive uhynxwnf30/22/2014 Overview (11/21/2022): Last Assessment & Plan: Resume home medications as ordered Follow up after discharged with PCP Labetalol PRN for SBP> 160 Monitor VS as ordered Last Assessment & Plan: Patient with history of hypertension. Blood pressure at this time 132/62. Plan: ?? Continue medications as prescribed. Disorder of lipid cxetecbade07/27/9559Avuuxhcdv80/14/2014Chest pain08/30/2013 Coronary wzwbyydniqzbsfs90/03/2014Mixed aoxdhdmkjkgjgv88/03/2014Dyspnea 08/30/2013Preinfarction ouvthnhv79/03/2014vascular necrosis of bone of hip 09/04/2011 Overview (11/21/2022): Right hip Herpes ecwjyz1409/04/2011Pain of left lower ouvxjeqhb27/08/2012 Overview (11/21/2022): Last Assessment & Plan: -[facility] 09/04/2018 as a transfer from [place] for second opinion regarding left lower extremity [...] in pain -Reports pain is uncontrolled with COLUMNIST/COMMENTATOR Dilaudid pump, and pain does not decrease [...] Fernandez RN -Please call with questions Prostate pzbqbn0909/04/2011Chronic ischemic heart eylfldi72 Impotence of organic mcifdk264Benign essential hypertension 07/04/2008 Overview (04/22/2024): Last Assessment [...] taking them as prescribed. DASH diet handouts Immunizations ImmunizationAdministration DatesNext DueInfluenza, High Dose Seasonal, Preservative Free06/21/2021,06/02/2020,06/06/2018,05/18/2015Influenza, High-dose Seasonal, Quadrivalent, Preservative Free05/31/2022Influenza, injectable, ulxaddnfvpra10/25/2017Influenza, trivalent, qpnhovqpgs09/22/2019Moderna SARS-CoV-2 Abdghhrsiao37/13/2022,10/28/2020,1Pneumococcal Conjugate PCV 131,05/18/2015Pneumococcal Polysaccharide UYS299810/08/2020Tdap09/30/2019 Family History Medical HistoryRelationNameCommentsCoronary artery diseaseOtherHyperlipidemia OtherHypertensionOtherRelationNameStatusCommentsOther Social History Tobacco UseTypesPacks/DayYears UsedDateSmoking Tobacco: NeverSmokeless Tobacco: Never Tobacco Cessation:Counseling Given: Not Answered Alcohol UseStandard Drinks/WeekCommentsNot Currently0 (1 standard drink = 0.6 oz pure alcohol)[place] Safety & EnvironmentAnswerDate RecordedFear of Current or Ex-PartnerNot on file10/19/2023Emotionally AbusedNot on file10/19/2023hysically AbusedNot on file10/19/2023Sexually AbusedNot on file10/19/2023hysically or Sexually AbusedNot on file10/19/2023Sex and Gender InformationValueDate Recorded Sex Assigned at BirthNot on fileLegal DcmSgzo3902/23/2022 9:56 PM EDTGender IdentityNot on fileSexual OrientationNot on file Last Filed Vital Signs Vital SignReadingTime TakenCommentsBlood Hwdflzmw955/7604 1:22 PM EDT Lusfq4262 1:22 PM EDTTemperature--Respiratory Uysx035509/09/2023 12:15 PM ESTOxygen Smvselgmxg45%12/18/2024 1:22 PM EDTInhaled Oxygen Concentration-- Chvtte644 kg (248 lb)12/18/2024 1:22 PM XVXSoycko013 cm (6' 2 )12/18/2024 1:22 PM EDTBody Mass Index31.8404 1:22 PM EDT Plan of Treatment Health MaintenanceDue DateLast DoneCommentsMedicare Annual Wellness (AWV) 1940Depression Tprvjesku17/09/1952Zoster Vaccines (1 of 2)1989Fall Risk Bruevrctm94/09/2004COVID-19 Vaccine ( season)2025 09/09/2021, 09/09/2021, 10/28/2020, Additional history existsInfluenza Vaccine (#1)512/, 06/06/2023, 05/31/2022, Additional history existsAdult Mdtnrps37Pneumococcal Vaccine: 50+ MdlxcCwtkvfomh90/11/2021, 05/28/2020, 05/18/2015HIB VaccinesAged OutNo longer eligible based on patient's age to complete this topicHPV VaccinesAged OutNo longer eligible based on patient's age to complete this topicIPV VaccinesAged OutNo longer eligible based on patient's age to complete this topicMeningococcal B VaccineAged OutNo longer eligible based on patient's age to complete this topicMeningococcal VaccineAged OutNo longer eligible based on patient's age to complete this topicRotavirus VaccinesAged OutNo longer eligible based on patient's age to complete this topic Insurance Care Teams Team MemberRelationshipSpecialtyStart DateEnd Date Nikko Bird MD [address] [place] [address] PCP - General11/21/22
--- OUTSIDE RECORDS SUMMARY | 2025-06-18 10:38 | XMS_ITS | Clinical Summary ---
Author Organization [facility] Address [id number] [address] [place] [address] Care Team Providers Care Oil Spreader Operator Name Role Phone Nikko Bird MD Primary Care Provider [phone] Allergies Active AllergyReactionsCriticalityNoted DateCommentsOxycodoneAnaphylaxisHigh 11/24/2016 Medications MedicationSigDispense QuantityRefillsLast FilledStart DateEnd DateStatus amiodarone (PACERONE) 200 mg tablet Take by mouth.Active aspirin 81 mg Take 162 mg by mouth.Active ASPIRIN ORAL Take 81 mg by mouth.Active atorvastatin (LIPITOR) 40 mg tablet Take by mouth.Active GABAPENTIN ORAL Take 100 mg by mouth 3 (three) times a day.Active metoprolol tartrate 75 mg tablet every 12 (twelve) hours.Active OXYCODONE HCL (OXYCODONE ORAL) Take 5-325 mg by mouth.Active warfarin (COUMADIN) 2.5 mg tablet One tablet p.o. daily, check PT INR as directed, dose may vary 60 tablet Active Active Problems No known active problems Resolved Problems ProblemNoted DateDiagnosed DateResolved DateLong term (current) use of anticoagulants [Z79.01]Atrial fibrillation (HCC) [I48.91] Social History Tobacco UseTypesPacks/DayYears UsedDateSmoking Tobacco: Never AssessedChildcare AnswerDate RymzmitxCkmvxrehsHdilock85/12/2019EmploymentAnswerDate Recorded SkoxivdcnaEnicbtl29/12/2019Purpose - LifeAnswerDate RecordedPurpose and direction in wdkkCdniamq27/11/2021Sex and Gender InformationValueDate Recorded Sex Assigned at BirthNot on fileLegal VepUctr0604/02/2015 11:35 AM EDTGender IdentityNot on fileSexual OrientationNot on file Last Filed Vital Signs Vital SignReadingTime TakenCommentsBlood Ddezlqdh795/68011/24/2016 10:29 AM EDT Woaqv6688 10:29 AM BTWIwlkolmoest81.7 ??C (98 ??F)11/24/2016 10:29 AM EDTRespiratory Xcyu825911/24/2016 10:29 AM EDTOxygen Saturation--Inhaled Oxygen Concentration--Sxceyh500.6 kg (235 lb)11/24/2016 10:29 AM EDTHeight--Body Mass Index-- Plan of Treatment Health MaintenanceDue DateLast DoneCommentsDepression Sgmthzhbj56/09/1951Tobacco Gzcjanmrp20/09/1952TaP,Tdap and Td Vaccines (1 - Tdap)1958Zoster (Shingles) Vaccine (1 of 2)1989Fall Risk Wfnschjus00/09/2004Influenza Wuxpcwz9904/28/2025 Medical Devices Not on file Insurance Care Teams Team MemberRelationshipSpecialtyStart DateEnd [place] [address] [place] [address] [facility]11/16/16
--- OUTSIDE RECORDS SUMMARY | 2025-06-18 10:38 | XMS_ITS | Encounter Summary ---
Author Organization [facility] Address [address] [place] [address] Care Team Providers Care Hvac Sales Representative Name Role Phone Nikko Bird MD Primary Care Provider [phone] System, Provider Not In Unavailable Unavaila ble Reason for Referral * Cardio (Routine) - Pending ReviewSpecialtyDiagnoses / ProceduresReferred By ContactReferred To ContactCardiology Diagnoses PVD (peripheral vascular disease) Procedures US Duplex Bypass Graft Right LE Gracy Millan MD [address] [place] [address] Phone: tel: fax: Referral IDStatusReasonStart DateExpiration DateVisits RequestedVisits [id number] Ktgyem21/ Encounter Details DateTypeDepartmentCare Team (Latest Contact Info)Bvvyeclcggx21/10/2025Orders Only [facility] [address] [place] [address] Ludivina Garcia RN PVD (peripheral vascular disease) (Primary Dx) Social History Tobacco UseTypesPacks/DayYears UsedDateSmoking Tobacco: NeverSmokeless Tobacco: NeverAlcohol UseStandard Drinks/WeekCommentsNot Currently0 (1 standard drink = 0.6 oz pure alcohol)[facility] UtilitiesAnswerDate RecordedIn the past 12 months has the electric, gas, oil, or water company threatened [...] otherwise physically hurt by your partner or ex-partner?03/14/2025Within the last year, have you been raped [...] or from getting things needed for daily living?03/14/2025 Housing Stability Vital SignAnswerDate RecordedIn the last 12 months, was there a time when you were not able to pay the mortgage or rent on time?03/14/2025In the past 12 months, how many times have you moved where you were living?1 03/14/2025t any time in the past 12 months, were you homeless or living in a custodial (including now)?03/14/2025Sex and Gender InformationValueDate Recorded Sex Assigned at BirthNot on fileLegal AoyRqbe1912/21/2013 2:37 PM EDTGender HzlcgafcUsby19/08/2019 8:23 PM ESTSexual QwaadcoohrrQzoeorzz51/08/2019 8:23 PM ESTdocumented as of this encounter Plan of Treatment Not on file documented as of this encounter Results * US Duplex Bypass Graft Right LE (06/17/2025 2:15 PM EDT)Specimen (Source) Anatomical Location / LateralityCollection Method / VolumeCollection Time Received Time06/17/2025 1:26 PM EDT Narrative MARK SYNAPSE CV - 06/17/2025 2:54 PM EDT Patient Info Name: ? Tristin Gray Age: ? 85 years : ? 1940 Gender: ? Male Accession #: ? [id number] Exam Date: ? 06/17/2025 1:26 PM Patient Status: ? OUTPATIENT Site Location: ? Indications ?I73.9 - Peripheral vascular disease, ??unspecified Procedure Description ??[id number] Duplex scan of lower extremity arteries or arterial bypass grafts using B-mode, color and spectral Doppler; unilateral or limited study. Logistics Team Leader: ? Gail Foy BS, RVS Staff Ordering Provider: ? Gracy Millan MD, [facility] Conclusions ??* Difficult exam due to leg [...] - Peripheral vascular disease, unspecified Procedure Description [id number] Duplex scan of lower extremity arteries or arterial bypassgrafts using B-mode, color and spectral Doppler; unilateral or limited study. Logistics Team Leader: Gail Foy BS, RVS Staff Ordering Provider: Gracy Millan MD, [facility] Conclusions * Difficult exam due to leg [...] PM Authorizing ProviderResult TypeResult StatusJoy Cornelio Millan [facility] ORDERABLESFinal ResultPerforming OrganizationAddressCity/State/ZIP CodePhone Number FUJI SYNAPSE CV documented in this encounter Visit Diagnoses Diagnosis PVD (peripheral vascular disease)- Primary Unspecified peripheral vascular disease PVD (peripheral vascular disease) Unspecified peripheral vascular disease documented in this encounter Additional Health Concerns AssessmentNoted TimePHQ-2 Depression Total Score: 8:30 PM EDT documented as of this encounter Care Teams Team MemberRelationshipSpecialtyStart DateEnd Date Nikko Bird MD [address] [place] [address] PCP - GeneralFamily Medicine09/04/18 System, Provider Not In Cardiologist11/09/22documented as of this encounter
--- OUTSIDE RECORDS SUMMARY | 2025-06-18 10:39 | XMS_ITS | Data Portability ---
Author Organization [place] [facility] Address [address] [place] [address] Assessment No assessment recorded. Plan of Treatment Reminders Order DateSubmit DateProviderLast Modified ByOrganization DetailsLast Modified TimeDetailsAppointmentsNone recorded.LabNone recorded.ReferralNone recorded. ProceduresNone recorded.SurgeriesNone recorded.ImagingNone recorded.Medication OrdersNone recorded. Patient TargetsNo targets recorded. Patient InstructionsNo instructions recorded. Reason for Referral None Reported. Medical Equipment None Reported. Medications Name Sig Start Date Stop Date Status Note LastModified by Organization Details LastModified Time atorvastatin 40 mg tablet activeNot AvailableNot AvailableNot Availableatorvastatin 80 mg tabletactiveNot AvailableNot AvailableNot Availableprednisone 10 mg tabletactiveNot AvailableNot AvailableNot Availablealbuterol sulfate 2.5 mg/3 mL (0.083 %) solution for nebulizationactiveNot AvailableNot AvailableNot Availableoxycodone-acetaminophen 5 mg-325 mg tabletactiveNot AvailableNot AvailableNot Availablemetoprolol tartrate 50 mg tabletactiveNot AvailableNot AvailableNot AvailableMuse 500 mcg intra-urethral suppositoryactiveNot AvailableNot AvailableNot Available gabapentin 100 mg capsuleactiveNot AvailableNot AvailableNot Available levofloxacin 500 mg tabletactiveNot AvailableNot AvailableNot Availablezolpidem 10 mg tabletactiveNot AvailableNot AvailableNot Availablecefdinir 300 mg capsule activeNot AvailableNot AvailableNot Available Vitals None Recorded Social History None recorded. Functional Status None recorded. Mental Status None recorded. Family History Nothing Reported. Medical History No medical history recorded. Past Encounters Encounter ID Performer Location Encounter Start Date Encounter Closed Date Diagnosis/Indication Diagnosis SNOMED-CT Code Diagnosis ICD10 Code Diagnosis IMO Codes Diagnosis Note [id number] Kamran Franco MD [address] [place] [address] 02/23/2018 10:18:42 02/25/2018 15:34:11 Health Concerns Section Related Observation LastModified by Organization Geno nicole LastModified Time None Recorded Concern Status LastModified by Organization Details LastModified Time None Recorded Advance Directives Directive None Recorded Payers Insurance Date Sequence Insurance Name Policy Number Policy Max Covered Member ID Max Member ID Guarantor Name 02/23/2018 1 *SELF PAY*
--- OUTSIDE RECORDS SUMMARY | 2025-06-18 10:39 | XMS_ITS | Encounter Summary ---
Author Organization [facility] Address [address] [place] [address] Care Team Providers Care Greeting Card Editor Name Role Phone Nikko Bird MD Unavailable Nikko Bird MD Primary Care Provider [phone] Elaine Saab LPN Unavailable Encounter Details DateTypeDepartmentCare Team (Latest Contact Info)Unnmtzrexsh76/16/2025bstract [facility] [address] [place] [address] Nikko Bird MD [address] [place] [address] Social History Tobacco UseTypesPacks/DayYears UsedDateSmoking Tobacco: NeverSmokeless Tobacco: NeverAlcohol UseStandard Drinks/WeekCommentsNot Currently0 (1 standard drink = 0.6 oz pure alcohol)Coffee 1-2 cups per [id number] Health LiteracyAnswerDate RecordedHow often do you need to have someone help you when you read instructions, pamphlets, or other written material from your doctor or pharmacy? Brxejw2706/21/2024Humiliation, Afraid, Rape, and Kick questionnaireAnswerDate RecordedWithin the [...] heating?Not hard at all06/21/2024HQ-2AnswerDate RecordedPatient Health Questionnaire-2 [place] [place] [facility] - Occupational Stress QuestionnaireAnswerDate [...] homeless or living in a residential (including now)?No06/21/2024Sex and Gender InformationValueDate RecordedSex Assigned at BirthNot on fileLegal JpcJpbj8811/09/2022 7:18 PM EDTGender IdentityNot on fileSexual OrientationNot on filedocumented as of this encounter Plan of Treatment Not on file documented as of this encounter Visit Diagnoses Not on filedocumented in this encounter Additional Health Concerns AssessmentNoted TimePHQ-9 Depression Total Score: 9:00 AM EDT documented as of this encounter Care Teams Team MemberRelationshipSpecialtyStart DateEnd Date Nikko Bird MD [address] [facility] [address] [place] [address] PCP - Humana1 Nikko Bird MD [address] [facility] [address] [place] [address] PCP - GeneralFamily Medicine03/09/23 Elaine Saab LPN [address] [facility] [address] [place] [address] 11/15/24documented as of this encounter
--- OUTSIDE RECORDS SUMMARY | 2025-06-18 10:39 | XMS_ITS | Encounter Summary ---
Author Organization [facility] Address [address] [place] [address] Care Team Providers Care Cover Maker Name Role Phone Nikko Bird MD Unavailable Nikko Bird MD Primary Care Provider [phone] Elaine Saab LPN Unavailable Encounter Details DateTypeDepartmentCare Team (Latest Contact Info)Mhmlnriomml97/16/2025bstract [facility] [address] [place] [id number] Nikko Bird MD [address] [place] [address] Social History Tobacco UseTypesPacks/DayYears UsedDateSmoking Tobacco: NeverSmokeless Tobacco: NeverAlcohol UseStandard Drinks/WeekCommentsNot Currently0 (1 standard drink = 0.6 oz pure alcohol)Coffee 1-2 cups per [id number] Health LiteracyAnswerDate RecordedHow often do you need to have someone help you when you read instructions, pamphlets, or other written material from your doctor or pharmacy? Djmlvk5706/21/2024Humiliation, Afraid, Rape, and Kick questionnaireAnswerDate RecordedWithin the [...] heating?Not hard at all06/21/2024HQ-2AnswerDate RecordedPatient Health Questionnaire-2 [id number] mountain hospital, inc. [place] [facility] - Occupational Stress QuestionnaireAnswerDate [...] homeless or living in a chcf (including now)?No06/21/2024Sex and Gender InformationValueDate RecordedSex Assigned at BirthNot on fileLegal UdvZpzn3011/09/2022 7:18 PM EDTGender IdentityNot on fileSexual OrientationNot on filedocumented as of this encounter Plan of Treatment Not on file documented as of this encounter Visit Diagnoses Not on filedocumented in this encounter Additional Health Concerns AssessmentNoted TimePHQ-9 Depression Total Score: 9:00 AM EDT documented as of this encounter Care Teams Team MemberRelationshipSpecialtyStart DateEnd Date Nikko Bird MD [address] [facility] [address] [place] [address] PCP - Humana1 Nikko Bird MD [address] [facility] [address] [place] [address] PCP - GeneralFamily Medicine03/09/23 Elaine Saab LPN [address] [facility] [address] [place] [address] 11/15/24documented as of this encounter
--- OUTSIDE RECORDS SUMMARY | 2025-06-18 10:39 | XMS_ITS | Encounter Summary ---
Author Organization [facility] Address [address] [place] [address] Care Team Providers Care Survey Worker Name Role Phone Nikko Bird MD Unavailable Nikko Bird MD Primary Care Provider [phone] Elaine Saab LPN Unavailable Encounter Details DateTypeDepartmentCare Team (Latest Contact Info)Pylxkknocor40/14/2025amboo flowsheet [facility] [address] [place] [phone] Nikko Bird MD [address] [place] [address] Social History Tobacco UseTypesPacks/DayYears UsedDateSmoking Tobacco: NeverSmokeless Tobacco: NeverAlcohol UseStandard Drinks/WeekCommentsNot Currently0 (1 standard drink = 0.6 oz pure alcohol)Coffee 1-2 cups per [id number] Health LiteracyAnswerDate RecordedHow often do you need to have someone help you when you read instructions, pamphlets, or other written material from your doctor or pharmacy? Mhamor9906/21/2024Humiliation, Afraid, Rape, and Kick questionnaireAnswerDate RecordedWithin the [...] heating?Not hard at all06/21/2024HQ-2AnswerDate RecordedPatient Health Questionnaire-2 [id number] hospital [facility] - Occupational Stress QuestionnaireAnswerDate [...] or living in a care home (including now)?No06/21/2024Sex and Gender InformationValueDate RecordedSex Assigned at BirthNot on fileLegal HkjQhrn2711/09/2022 7:18 PM EDTGender IdentityNot on fileSexual OrientationNot on filedocumented as of this encounter Functional Status * Over the past 2 weeks, how often have you been bothered by any of the following problems?QuestionAnswerDate of AssessmentAuthorLittle interest or pleasure in doing thingsNot at all06/10/2025 10:00 AM Lorraine Marks MA Feeling down, depressed, or hopelessNot at all06/10/2025 10:00 AM Lorraine Marks MAPatient Health Questionnaire-2 [id number] 10:00 AM Lorraine Marks MA documented as of this encounter Plan of Treatment Not on file documented as of this encounter Visit Diagnoses Not on filedocumented in this encounter Additional Health Concerns AssessmentNoted TimePHQ-9 Depression Total Score: 9:00 AM EDT documented as of this encounter Care Teams Team MemberRelationshipSpecialtyStart DateEnd Date Nikko Bird MD [address] [facility] [address] [place] [address] PCP - Human08/28/17 Nikko Bird MD [address] [facility] [address] [place] [address] PCP - GeneralFamily Medicine03/09/23 Elaine Saab LPN [address] [facility] [address] [place] [address] 11/15/24documented as of this encounter
--- OUTSIDE RECORDS SUMMARY | 2025-06-18 10:39 | XMS_ITS | Clinical Summary ---
Author Organization [facility] Address [address] [place] [address] Care Team Providers Care Assistant To The President Name Role Phone Nikko Lovelace MD Unavailable Nikko Lovelace MD Primary Care Provider [phone] Elaine Saab LPN Unavailable Allergies Active AllergyReactionsCriticalityNoted VphpFfcqzqbjGdwypcxbjyvJfiocjn27/13/2023 GabapentinGI xihukhdwrdk81/18/1324Jvetjrlwap37/05/2025 Other Reaction(s): Weakness Medications MedicationSigDispense QuantityRefillsLast FilledStart DateEnd DateStatus aspirin 81 MG EC tablet Take 81 mg by mouth in the morning.Active losartan (Cozaar) 50 MG tablet Indications:Benign essential hypertensionTake 1 tablet (50 mg) by mouth Daily 100 tablet 4Active atorvastatin (Lipitor) 80 MG tablet 4Active furosemide (Lasix) 20 MG tablet Indications:Benign essential hypertensionTAKE 1 TABLET EVERY MORNING 90 tablet 5Active fluticasone (Flonase) 50 MCG/ACT nasal spray Indications:Seasonal allergic rhinitis due to pollenAdminister 1 spray into each nostril Daily Shake gently. Before first use, prime pump. After use, clean tip and replace cap. 48 g 5Active albuterol HFA 90 mcg/act inhaler Indications:Sinusitis, unspecified chronicity, unspecified locationInhale 1 puff every 4 (four) hours if needed for wheezing or shortness of breath 76.5 Unspecified 5Active omeprazole (PriLOSEC) [address] capsule Indications:HeartburnTAKE 1 CAPSULE EVERY DAY 90 capsule 5Active zolpidem (Ambien) 10 MG tablet Indications:Primary insomniaTake 1 tablet (10 mg) by mouth as needed at bedtime for sleep 30 tablet 5Active nitroglycerin (Nitrostat) 0.4 MG SL tablet Indications:PVD (peripheral vascular disease) with claudicationPlace 1 tablet (0.4 mg) under the tongue every 5 (five) minutes if needed for chest pain 90 tablet 5Active tamsulosin (Flomax) 0.4 MG 24 hr capsule Indications:History of prostate cancer,Urinary hesitancyTake 1 capsule (0.4 mg) by mouth in the morning and 1 capsule (0.4 mg) before bedtime. 200 capsule 5Active Additional Information Patient taking differently:0.4 mg OralDaily, Reported on 06/10/2025 rivaroxaban (Xarelto) 2.5 MG tablet Indications:Paroxysmal atrial fibrillation (HCC)TAKE 1 TABLET TWICE DAILY 180 tablet 5Active metoprolol tartrate (Lopressor) 50 MG tablet Indications:Benign essential hypertensionTAKE 1 TABLET IN THE MORNING AND 1 TABLET BEFORE BEDTIME. 180 tablet 5Active predniSONE (Deltasone) 20 MG tablet 5Active Santyl 250 UNIT/GM ointment Apply 1 application topically Daily5Active predniSONE (Deltasone) 10 MG tablet 5Active ipratropium-albuterol (Duo-Neb) 0.5-2.5 mg/3 mL nebulizer solution Indications:Chronic bronchitis, unspecified chronic bronchitis type (HCC),COPD exacerbation (HCC)Take 3 mL by nebulization in the morning and 3 mL in the evening and 3 mL before bedtime. 270 mL 5Active benzonatate (Tessalon) 100 MG capsule Three times daily5Active polyethylene glycol, PEG, 3350 (Miralax) 17 g packet Take 17 g by mouth in the morning.5Active Xbffrhh-Ztagzkxctkf-Ddtxcxzvkf (Breztri Aerosphere) 160-9-4.8 MCG/ACT aerosol Indications:Pneumonia due to infectious organism, unspecified laterality, unspecified part of lungInhale 1 puff in the morning and at noon 18 g 5Active oxyCODONE-acetaminophen (Percocet) 5-325 MG tablet Indications:PVD (peripheral vascular disease) with claudicationTake 1 tablet by mouth every 6 (six) hours if needed for severe pain or moderate pain 120 tablet /5Active Menthol-Zinc Oxide (Calmoseptine) 0.44-20.6 % ointment Indications: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HCC)Apply 1 Application topically every 6 (six) hours if needed (Barrier Cream) 100 g 5Active Menthol-Zinc Oxide (Calmoseptine) 0.44-20.6 % ointment Indications: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HCC)Apply 1 Application topically every 6 (six) hours if needed (Barrier Cream) 100 g //Discontinued(Reorder) Azelastine HCl 137 MCG/SPRAY solution Indications:Seasonal allergic rhinitis due to pollenAdminister 1 spray into affected nostril(s) in the morning and 1 spray before bedtime. Do all this for 14 days. 90 mL Discontinued(Other) oxyCODONE-acetaminophen (Percocet) 5-325 MG tablet Indications:PVD (peripheral vascular disease) with claudicationTake 1 tablet by mouth every 6 (six) hours if needed for severe pain or moderate pain 120 tablet Discontinued(Reorder) sulfamethoxazole-trimethoprim (Bactrim) 400-80 MG tablet Take 1 tablet by mouth every 12 (twelve) hoursDiscontinued (Therapy completed) amoxicillin-clavulanate (Augmentin) 500-125 MG tablet Take 500 mg by mouth in the morning and 500 mg before bedtime.04/16/2025 05/20/2025Discontinued(Therapy completed) guaiFENesin (Mucinex) 600 MG 12 hr tablet Twice dailyDiscontinued(Other) levoFLOXacin (Levaquin) 500 MG tablet Indications:Abscess of lower lobe of left lung with pneumonia (HCC)Take 1 tablet (500 mg) by mouth Daily for 14 days 14 tablet Expired ciprofloxacin-dexAMETHasone (CiproDEX) otic suspension Indications:Acute eczematoid otitis externa of right earAdminister 4 drops into affected ear(s) in the morning and 4 drops before bedtime. Do all this for 7 days. 7.5 mL Expired Active Problems ProblemNoted DateDiagnosed DateAcute eczematoid otitis externa of right ear 06/10/2025Rhinovirus tyszqoopw85/23/6012Zfgsym22/12/6956Uzpokhdfrr72/12/2025 Opioid dependence, btfipjbqcriyq03/05/2025 Overview (05/02/2025): Noted by [facility] last documented on [id number] Assessment & Plan (06/10/2025 10:26 AM EDT): Medication choice and dosage is [...] OARRS Report was reviewed for this patient. Ischemic toe ulcer, right, with fat layer wjqnugu8204/14/2025 Assessment & Plan (04/14/2025 1:37 PM EDT): Needs to finish antibiotic and needs follow up with podiatry Osteomyelitis of right foot04/14/2025 Assessment & Plan (04/14/2025 1:45 PM EDT): Will get stat MRI Will do stat Podiatry referral If worsens go to ER Currently no drainage Carotid stenosis, asymptomatic, ubsjfdgol41/18/2025Unspecified chronic ybevdagewq59/10/2025quired absence of left foot11/04/2024 Assessment & Plan (11/04/2024 11:22 AM EDT): Has prosthesis 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11/04/2024ronchiectasis, uncomplicated 11/04/2024 Assessment & Plan (11/04/2024 11:25 AM EDT): stable Acquired absence of left leg below knee07/22/2024 Assessment & Plan (11/04/2024 11:23 AM EDT): S/p amputation with prosthesis Other complications of amputation stump07/22/2024 Assessment & Plan (11/04/2024 11:22 AM EDT): resolved Hx of CABG05/28/2024Secondary hypercoagulable state ([facility])4Pulmonary hypertension, rnavsxnydta28/30/2024 Assessment & Plan (11/04/2024 11:25 AM EDT): Has water pills From COPD Other thrombophilia ([facility])03/21/2024 Assessment & Plan (03/21/2024 3:10 PM EDT): Has blood thinner Medicare annual wellness visit, cwhmlunngy33/10/2023 Assessment & Plan (06/10/2025 10:25 AM EDT): Colonoscopy every 10 years or [...] Ultrasound of Aorta to screen for Anuerysm Assessment & Plan (06/06/2023 11:10 AM EDT): [...] to screen for Anuerysm AAA (abdominal aortic aneurysm)04/09/2023 Assessment & Plan (04/11/2023 11:31 AM EDT): Sees Cardiology Has follow up with cardiology and do 6 month regular US Abnormal radiographic /13/2023hronic obstructive pulmonary disease, qfebuxvebby67/13/2023 Assessment & Plan (11/04/2024 11:25 AM EDT): From second hand smoke Chronic diastolic (congestive) heart kmayrvp1004/09/2023 Assessment & Plan (11/04/2024 11:25 AM EDT): Foot swells Degfwxmsj11/13/2023sthmatic twovchinju84/13/2023therosclerotic heart disease of campo coronary artery without angina /13/2023arotid artery ubyqwbzb58/13/2023 Assessment & Plan (06/06/2023 11:20 AM EDT): Getting Carotid dopplers Chronic kidney disease due to qwwirbwapegr79/13/2023Slow transit constipation 04/09/2023Elevated erythrocyte sedimentation rate04/09/2023Left sciatic nerve pain04/09/20231579Liezusbbsp20/13/2023Other chronic pain04/09/2023 Assessment & Plan (08/12/2024 1:41 PM EST): [...] was reviewed for this patient. Paresthesia of skin04/09/2023aroxysmal atrial cnqymphllxfm36/13/2023VD (peripheral vascular disease) with ldtlwccppeiv51/13/2023 Assessment & Plan (04/14/2025 1:37 PM EDT): [...] Still with coldness. Phantom limb syndrome with pain04/09/2023 Assessment & Plan (11/04/2024 11:27 AM EDT): [...] (08/12/2024 1:42 PM EST): Pain meds effective Pneumonia due to infectious drkkvdga87/13/2023 Assessment & Plan (05/20/2025 1:21 PM EDT): Rinse out mouth with water after use Needs CT scan after a month Polymyalgia rheumatica ([facility])04/09/2023rimary osteoarthritis of right hip 04/09/2023Seasonal allergic ofjwfzen27/13/2023 Assessment & Plan (11/04/2024 11:23 AM EDT): Zyrtec, Shelli, Claritin Assessment & Plan (03/21/2024 3:09 PM [...] watch for any sugar elevations. Solitary pulmonary bnnhxh4104/09/2023Stage 3a chronic kidney rpdgpne1504/09/2023 Acquired absence of unspecified foot04/09/2023 Assessment & Plan (11/04/2024 11:22 AM EDT): S/p amputation but has prosthesis Assessment & Plan (02/05/2024 3:03 PM EDT): Sees Vascular doctor this summer in March Puojjyvn78/25/2023Lumbosacral spondylosis without bquousmlwp88/25/2023 Assessment & Plan (04/11/2023 11:31 AM EDT): [...] was reviewed for this patient. Mitral valve mwbqhoztkocyl99/27/4932Xyrydjn67/27/2023osterior tibial tendinitis of right leg11/07/2022Thoracic aortic aneurysm without jisccdw27/18/2022S/P total hip ekahctdmxvid77/18/2021ortic valve sjvgglbilqkqk67/07/2021lass 1 obesity with body mass index (BMI) of 31.0 to 31.9 in adult09/05/2018 Overview (06/05/2023): Last Assessment & Plan: Patient with BMI greater than 30. Plan: Patientwith BMI >30. According to the NIH and USPSTF, it is recommended that the patient lose weight utilizing a combination of dietary (reduction in calories of 500 to 1,000 kcal/day) and behavioral ther apies, in addition to increasing physical activity (30 [...] for a goal BMI <30. Atherosclerosis of campo arteries of extremities with rest pain, unspecified dtopfjzwo97/08/2019 Overview (06/05/2023): Last Assessment & Plan: Pt s/p LLE angiogram with Dr Hahn who feels that the pt has no further endovascular options. He has consulted Dr. Millan for a possible tibial bypass. Pt s/p LLE critical limb ischemia [place] class 4 rest pain with distal discoloration to histoes. Pt is s/p L pop angioplasty with stent placement 08/[address] [facility] in [place], [place]. Pt was placed on Xarelto and [...] bypass. Pt s/p LLE critical limb ischemia [place] class 4 rest pain with distal discoloration to his toes. Pt is s/p L pop angioplasty with stent placement 08/[address] [facility] in [place], [place]. Pt was placed on Xarelto and [...] intensity statin medication. ?? Will sign off Assessment & Plan (11/04/2024 11:29 AM EDT): Sees Specialist in 6 months Has known blockage in right and is holding off as long as possible Claudication of right lower pckttickn47/12/2018 Overview (06/05/2023): Added automatically from request for surgery [id number] Last Assessment & Plan: Heparin drip initiated, pharmacyto manage per protocol ASA and Plavix started Cardiovascular surgeon consulted PT/OT evaluation andtreatment Monitor labs, VS and telemetry as ordered Pain management Last Assessment & Plan: S/P Left Lower Extremity Angiogram with ballooning and stent 08/09/2018 Post op orders per surgeon DVT/GI prophylaxis Monitor labs, VS and telemetry as ordered Pain management Added automatically from request for surgery [id number] Last Assessment & Plan: Heparin drip initiated, pharmacy to manage per protocol ASA and Plavix started Cardiovascular surgeon consulted PT/OT evaluation and treatment Monitor labs, VS and telemetry as ordered Pain management Last Assessment & Plan: S/P Left Lower Extremity Angiogram with ballooning and stent 08/09/2018 Post op orders per surgeon DVT/GI prophylaxis Monitor labs, VS and telemetry as ordered Pain management Yiaheeucb75/04/2016Disorder of lipid hafokrfhbf26/27/3041Ugimuevfh11/14/2014 Chest pain in adult08/30/2013Mixed whwjezhroibebx97/03/0173Zwkfime78/03/2014 Preinfarction rmwnuncq89/03/2014Malignant neoplasm of /25/2011 Assessment & Plan (11/04/2024 11:24 AM EDT): No longer sees urology. S/p seeds implant in 2009 Assessment & Plan (03/21/2024 3:10 PM EDT): Seen in November by Urologist and released from Care Benign essential ujxkphvgqadz51/07/2008 Assessment & Plan (03/21/2024 3:04 PM EDT): [...] prescribed. DASH diet handouts Chronic ischemic heart geyhwtd6307/04/2008Impotence of organic uwmzdm4207/04/2008 Resolved Problems ProblemNoted DateDiagnosed DateResolved DateAcute cystitis without hematuria 07/ Assessment & Plan (03/21/2024 3:09 PM EDT): Add Probiotic to help replenish the good bacteria that are destroyed by the Antibiotics Florastor Florajen Align or try Activia in Yogurt Probiotics reduce the risk of antibiotic induced diarrhea Flu vaccine needNausea1cute exacerbation of chronic obstructive pulmonary nbdayjn49ataract04/09/2023 04/26/20242849Byidzrpaebye58Sinusitis Assessment & Plan (09/19/2023 10:53 AM EST): I discussed with patient that while on prednisone, do not take any NSAIDs like Ibuprofen, Naprosyn,Alleve or motrin. Watch for any side effects like abdominal pain and nausea. Take the prednisone with food or milk. Prednisone may increase appetite. While on prednisone, watch for any sugar elevations. Inguinal painHematoma of arm, left, initial encounter Overview (06/05/2023): Last Assessment & Plan: 82 yo RHD male with left upper arm hematoma - will D/W Dr. Mackenzie - XR reviewed; negative for fracture or dislocation - VSS. Afebrile. WBC 8.06 /CRP 35.4 / ESR 30 - suspect hematoma in setting of xarelto. Biceps tendon appears intact - compartments soft and compressible. No indication for surgical intervention - recommend supportive care withrest, ice, compression, elevation as able - WBAT/ROMAT LUE - follow up with PCP or Dr. Messina as needed if symptoms persist Last Assessment & Plan: Formatting of this note might be different fromthe original. 82 yo RHD male with left upper [...] Dr. Messina as needed if symptoms persist Qqefaezxci31Gangrene of left foot Bjjdlnlsvolxnlhekp00/09/201908/30/2024 Overview (06/05/2023): Last Assessment & Plan: Patient with history of hypercholesteremia. Plan: Continue high intensity statin medication Risk factor modification. Last Assessment & Plan: Patient with history of hypercholesteremia. Plan: ?? Continue high intensity statin medication ?? Risk factor modification. Assessment & Plan (06/06/2023 [...] prescribed. DASH diet handouts Obesity (BMI 30.0-34.9) Overview (06/05/2023): Last Assessment & Plan: Diet and lifestyle modifications strongly encouraged Follow up after discharged with PCP for further treatment options Last Assessment & Plan: Diet and lifestyle modifications strongly encouraged Follow up after discharged with PCP for further treatment options Pure tiejzlkovnehpcpitmke45/14/201808/30/2024 Overview (06/05/2023): Last Assessment & Plan: Resume home medications Follow up after discharged with PCP Last Assessment & Plan: Resume home medications Follow up after discharged with PCP Fueedbwng92bdominal painvascular necrosis of bone of hip Overview (06/05/2023): Right hip Right hip Herpes pkpbwc004Pain of left lower sdwwacskb31/08/2012 04/26/2024 Overview (06/05/2023): Last Assessment & Plan: -Presented to [facility] 09/04/2018 as a transfer from [place] for second opinion regarding left lower extremity pain and discoloration that was present two days prior to admit there on 08/30. s/p LLE angio with stent placement 08/09 -NARx reviewed, patient prescribed Gabapentin 200 mg TID (last filled #540 tabs for 90 days 07/12/18) and Percocet 5/325 mg (#28 tabs for 7 days 08/23/18) written by Dr. Nikko Lovelace - Patient found lying in bed, writhing in pain -Reports pain is uncontrolled with [facility] Dilaudid pump, and pain does not decrease even after he presses his button - Bypass Peroneal femoral, right saphenous vein harvest, completion angiogram on right planned for today (09/07/18) with Dr. Millan, still pending -Discontinue IV Dilaudid- pt feels thisis not controlling his pain -Will start Ketamine drip- Start at 0.1mg/kg/hr. Please note that this is an opiate-sparing, sub anesthetic protocol. Protocol can run up to 5-7 days, but improved symptomcontrol can be seen with much shorter use. Titrations are not to be made for a minimum of 24 hours after initiation with maximum upward titration of 0.3 mg/kg/hr after day 3. Low sub anesthetic dosesof Ketamine can help produce analgesia and modulate [...] Last Assessment & Plan: -Presented to [facility] 09/04/2018 as a transfer from [place] for second opinion regarding left lower extremity [...] in pain -Reports pain is uncontrolled with [facility] Dilaudid pump, and pain does not decrease even after he presses his button -Bypass Peroneal femoral, right saphenous vein harvest, completion angiogram on right planned for today (09/07/18) with Dr. Millan, still pending -Discontinue IV Dilaudid- pt feels this is not controlling his pain -Will start Ketamine drip- Start at 0.1mg/kg/hr. Please note that this is an opiate-sparing, sub anesthetic protoco l. Protocol can run up to 5-7 days, but improved symptom control can be seen with much shorter use.Titrations are not to be made for a minimum of 24 hours after initiation with maximum upward titration of 0.3 mg/kg/hr after day 3. Low sub anesthetic doses of Ketamine can help produce analgesia andmodulate central sensitization, hyperalgesia and opioid tolerance. Of note, Ketamine does not need to be weaned. It can be discontinued on day of discharge or 7 days after initiation, whichever comesfirst -Start Oxycodone 5-10 mg Q3H PRN for now, and for 24 hours following surgery -would reduce frequency to Q4H PRN thereafter - Increase Gabapentin from 300 mg BID to 400 mg TID -Will consider adding Movantik for opioid induced constipation, if needed -Discussed realistic expectations and goals. Being pain free is unlikely during this acute post op period -Will continue to follow and make adjustments as needed -Discussed with paradise Fernandez RN -Please call with questions Encounters DateTypeDepartmentCare NvmfBmpbnbalnvw11/16/2025bstract [facility] [address] [facility] [address] [place] [address] Nikko Lovelace MD 06/12/2025bstract [facility] [address] [facility] [address] [place] [address] Nikko Lovelace MD 06/11/2025Patient Outreach [facility] [address] [place] [address] Elaine Saab LPN 06/10/2025 10:30 AM EDTOffice Visit [facility] [address] [facility] [address] [place] [address] Nikko Lovelace MD Routine general medical examination at health care facility (Primary Dx); Screening for lipid disorders; Medicare annual wellness visit, subsequent; 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HCC); Encounter for immunization; Opioid dependence, uncomplicated (HCC); Acute eczematoid otitis externa of right ear06/10/2025amboo flowsheet [facility] [address] [place] [address] Nikko Lovelace MD 06/10/20250422Lalxjv73/07/2025Patient Outreach [facility] [address] [place] [address] Elaine Saab LPN 05/29/2025Refill [facility] [address] [place] [address] Nikko Lovelace MD PVD (peripheral vascular disease) with mnpkhpclxufp00/29/2025Telephone [facility] [address] [place] [address] Elaine Saab LPN 05/26/2025Patient Outreach [facility] [address] [place] [place] [address] Elaine Saab LPN 05/21/2025Patient Outreach [facility] [address] [place] [place] [address] Elaine Saab [employer] 05/20/2025 1:00 PM EDTOffice Visit [facility] [address] [place] [address] Nikko Lovelace MD Pneumonia due to infectious organism, unspecified laterality, unspecified part of lung (Primary Dx)05/20/20254200Qhqkkb88/17/2025Patient Outreach [facility] [address] [place] [place] [address] Elaine Saab [employer] 05/14/2025bstract [facility] [address] [place] [address] Nikko Lovelace MD 05/12/2025bstract [facility] [address] [place] [address] Nikko Lovelace MD 05/06/2025bstract [facility] [address] [place] [address] Nikko Lovelace MD 05/06/2025bstract [facility] [address] [place] [address] Nikko Lovelace MD 05/05/2025[facility] [address] [place] [address] Elaine Saab LPN 05/02/2025 1:00 PM EDTOffice Visit [facility] [address] [place] [address] Zoë King PA Hemoptysis (Primary Dx); Dweinnr4905/02/2025amboo flowsheet [facility] [address] [facility] [address] [place] [address] Zoë King PA 05/02/20253517Kppipr85/04/2025Patient Outreach [facility] [address] [place] [address] Elaine Saab LPN 05/01/2025bstract [facility] [address] [place] [address] Elaine Saab LPN 04/30/2025linisync Result Encounter [facility] External Department Unsolicited Provider, Generic External Data 04/29/2025Refill [facility] [address] [place] [place] [address] Nikko Lovelace MD Benign essential ussvhnhqcych46/02/2025Telephone [facility] [address] [place] [address] Sheree Murrell Medication Question (Has a terrible cold and runny nose wanted to know if you could zuly in a z-packfor him.)04/21/2025Telephone [facility] [address] [place] [phone] Elaine Saab LPN 04/21/2025Patient Outreach [facility] [address] [place] [address] Elaine Saab LPN 04/16/2025linisync Result Encounter [facility]OM[facility] External Department Unsolicited Provider, Generic External Data 04/15/2025 8:00 AM EDTAncillary Procedure [facility] [address] [place] [address] Osteomyelitis of right foot, unspecified type (HCC)04/15/2025linisync Result Encounter [facility] External Department Unsolicited Provider, Generic External Data 04/15/2025Patient Outreach [facility] [address] [place] [address] Elaine Saab LPN 04/15/2025Results Follow-Up [facility] [address] [place] [address] Nikko Lovelace MD MR foot right wo IV dyjxztth33/19/0624Ohhbtp22/18/2025 1:30 PM EDTOffice Visit [facility] [address] [place] [address] Nikko Lovelace MD PVD (peripheral vascular disease) with claudication (Primary Dx); Ischemic toe ulcer, right, with 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); Osteomyelitis of right foot, unspecified type (HCC)04/14/20254813Bylwkp91/18/2025 Patient Outreach [facility] [address] [place] [address] Elaine Saab LPN 04/10/2025bstract [facility] [address] [place] [address] Emmanuel Gonzalez DPM 04/10/2025Telephone [facility] [facility] [address] [place] [id number] Hemmer, Zoë M, PA posible med cmkyxwygqoz83/14/2025bstract [facility] [address] [facility] [address] [place] [address] Nikko Lovelace MD 04/09/2025bstract [facility] [address] [place] [address] Nikko Lovelace MD 04/09/2025[facility]phone [facility] [address] [facility] [address] [place] [address] Zoë King PA 04/09/2025[facility]ill [facility] [address] [facility] [address] [place] [address] Zoë King PA Paroxysmal atrial fibrillation (HCC)04/08/2025 11:30 AM EDTOffice Visit NOMS Luis [facility] [address] [facility] [address] [place] [address] Zoë King PA PVD (peripheral vascular disease) with claudication (Primary Dx); Acquired absence of left foot (HCC); Ischemic toe ulcer, right, with 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)04/08/2025External Result Encounter NOMS External Department Unsolicited Zoë King PA 04/08/2025bstract NOMS [facility] [address] [facility] [address] [place] [address] Nikko Lovelace MD 04/08/2025amboo flowsheet [facility] [address] [facility] [address] [place] [address] Zoë King PA 04/08/20259384Dxjohc31/11/2025Patient Outreach [facility] [address] [place] [address] Elaine Saab LPN 04/03/2025Refill NOMS Luis [facility] [address] [facility] [address] [place] [address] Nikko Lovelace MD PVD (peripheral vascular disease) with ybeocaonetti24/04/2025 1:45 PM EDTOffice Visit [facility] 112 [facility] 110 [place] [address] Nikko Lovelace MD PVD (peripheral vascular disease) with claudication; History of prostate cancer; Urinary vbmoofama15/04/1033Npvjdz13/04/2025[facility] [address] [place] [address] Elaine Saab [employer] 03/24/2025Telephone [facility] [address] [place] [address] Elaine Saab, [facility] 03/24/2025Patient Outreach [facility] [address] [place] [address] Elaine Saab, [facility] 03/24/2025bstract [facility] [address] [facility] [address] [place] [address] Nikko Lovelace MD 03/20/2025bstract [address] [place] [address] Nikko Lovelace MD from Last 3 Months Immunizations ImmunizationAdministration DatesNext DueInfluenza, High Dose Seasonal, Preservative Free06/10/2025,06/21/2021,06/02/2020,06/06/2018,05/18/2015 Influenza, High-dose Seasonal, Quadrivalent, Preservative Free08/12/2024, 06/06/2023,05/31/2022,06/06/2018Influenza, injectable, vmtcsldwkuru47/25/2017 Influenza, injectable, quadrivalent, preservative free07/11/2016Influenza, seasonal, vapyxfmtgm71/01/2020Influenza, trivalent, bdnclvninf06/22/2019 Pneumococcal Conjugate PCV 131,05/18/2015Pneumococcal Polysaccharide QQTO8622/11/1457Ebrs77 Family History Medical HistoryRelationNameCommentsStrokeOtherFamily historyRelationNameStatus CommentsFatherDeceasedMotherDeceasedOtherFamily historySiblingDeceasedSister Deceaseddeceased from covid Social History Tobacco UseTypesPacks/DayYears UsedDateSmoking Tobacco: NeverSmokeless Tobacco: Never Tobacco Cessation:Counseling Given: Yes Alcohol UseStandard Drinks/WeekCommentsNot Currently0 (1 standard drink = 0.6 oz pure alcohol)Coffee 1-2 cups per [id number] Health LiteracyAnswerDate RecordedHow often do you need to have someone help you when you read instructions, pamphlets, or other written material from your doctor or pharmacy?Rarely 06/21/2024Humiliation, Afraid, Rape, and Kick questionnaireAnswerDate Recorded Within the last year, have you been afraid of your partner or ex-partner?No 06/21/2024Within the last year, have you been humiliated or emotionally abused in other ways by your partner or ex-partner?No06/21/2024Within the last year, have you been kicked, hit, slapped, or otherwise physically hurt by your partner or ex-partner?No06/21/2024Within the last year, have you been raped or forced to have any kind of sexual activity by your partner or ex-partner?No06/21/2024 AUDIT-CAnswerDate RecordedQ1: How often do you have a drink containing alcohol? Never06/21/2024Q2: How many drinks containing alcohol do you have on a typical day when you are drinking?Patient does not drink06/21/2024Q3: How often do you have six or more drinks on one occasion?Never06/21/2024Overall Financial Resource Strain (CARDIA)AnswerDate RecordedHow hard is it for you to pay for the very basics like food, housing, medical care, and heating?Not hard at all 06/21/2024HQ-2AnswerDate RecordedPatient Health Questionnaire-2 Score0 06/10/2025[facility] [place] of Occupational Health - Occupational Stress QuestionnaireAnswerDate RecordedDo you feel stress - tense, restless, nervous, or anxious, or unable to sleep at night because yourmind is troubled all the time - these days?Not at all06/21/2024Exercise Vital SignAnswerDate RecordedOn average, how many days per week do you engage in moderate to strenuous exercise (like a brisk walk)?7 days06/21/2024On average, how many minutes do you engage in exercise at this level?10 min06/21/2024Hunger Vital SignAnswerDate Recorded Within the past 12 months, you worried that your food would run out before you got the money to buymore.Never true06/21/2024Within the past 12 months, the food you bought just didn't last and you didn't have money to get more.Never true 06/21/2024RAPARE - TransportationAnswerDate RecordedIn the past 12 months, has lack of transportation kept you from medical appointments or from getting medications?No06/21/2024In the past 12 months, has lack of transportation kept you from meetings, work, or from getting things needed for daily living?No 06/21/2024Housing Stability Vital SignAnswerDate RecordedIn the last 12 months, was there a time when you were not able to pay the mortgage or rent on time?No 06/21/2024In the past 12 months, how many times have you moved where you were living?t any time in the past 12 months, were you homeless or living in a custodial (including now)?No06/21/2024Sex and Gender InformationValueDate RecordedSex Assigned at BirthNot on fileLegal WuxErvd9511/09/2022 7:18 PM EDT Gender IdentityNot on fileSexual OrientationNot on file Last Filed Vital Signs Vital SignReadingTime TakenCommentsBlood Nysugrkd962/6806/10/2025 10:17 AM EDT Knmkw884206/10/2025 10:17 AM SSFZaiguxdywcj52 ??C (98.6 ??F)05/02/2025 1:04 PM EDT Respiratory Gnpu978405/02/2025 1:04 PM EDTOxygen Knbpcwxvkz07%06/10/2025 10:17 AM EDTInhaled Oxygen Concentration--Dsdcqf455 kg (243 lb)06/10/2025 10:17 AM EDT Xcbeaq533 cm (6' 2 )06/10/2025 10:17 AM EDTBody Mass Index31. 10:17 AM EDT Plan of Treatment Health MaintenanceDue DateLast DoneCommentsMedicare Annual Wellness (AWV) , 04/26/2024, 06/06/2023neumococcal Vaccine: 65+ Years Pbdpthitb01/11/2021, 05/28/2020, 05/18/2015Influenza YuqquviOvguwgaut03/14/2025, 08/12/2024, 06/06/2023, Additional history exists Procedures Procedure NamePriorityDate/TimeAssociated DiagnosisCommentsMHPT DIFFERENTIAL Lehzoih2604/30/2025 11:00 AM EDT ALL SED ZSHOFsyrplr59/03/2025 11:00 AM EDT ALL CBC WITH AUTO ITWXLbdgxnx69/03/2025 11:00 AM EDT ALL C REACTIVE IOPNWMTTvujmjy49/03/2025 11:00 AM EDT ALL BASIC METABOLIC BPPKDEbytlgg95/03/2025 11:00 AM EDT XR FOOT RT MIN 3V04/16/2025 12:49 PM EDT ALL C REACTIVE YNCJUSHRttitmd64/19/2025 1:47 PM EDT ALL BASIC METABOLIC FWJNYQzlaljp97/19/2025 1:47 PM EDT ALL SED DHXOWhofgeg58/19/2025 1:47 PM EDT ALL CBC WITH AUTO WHQEHbjqkzb66/19/2025 1:47 PM EDT MR FOOT RIGHT WO IV QEQZJOELHcgqfcn17/19/2025 8:44 AM EDT Osteomyelitis of right foot, unspecified type (HCC) XACHWtrvxmn31/12/2025 12:00 AM EDT HERPES SIMPLEX VIRUS 0Wpwemil75/12/2025 12:00 AM EDT from Last 3 Months Results * (ABNORMAL) MHPT DIFFERENTIAL (04/30/2025 11:00 AM EDT)ComponentValueRef Range Test MethodAnalysis TimePerformed AtPathologist SignatureSEGMENTED NEUTROPHILS % ZLEJYB20.043.0 - 75.0TBHLYMPHOCYTES PERCENT YABAOF21.020.5 - 60.0 %TBH MONOCYTES PERCENT YOWMRE65.0(H)1.7 - 12.0 %TBHEOSINOPHILS PERCENT DKEZQC99.0 (H)0.9 - 7.0 %TBHBASOPHILS PERCENT MANUAL0.0(L)0.2 - 2.0 %TBHSEGMENTED NEUT ABSOLUTE MANUAL1.19(L)1.4 - 6.5 10 3/uLTBHLYMPHOCYTES ABSOLUTE MANUAL0.62(L) 1.20 - 3.80 10 3/uLTBHMONOCYTES ABSOLUTE MANUAL0.520.30 - 0.80 10 3/uLTBH EOSINOPHILS ABSOLUTE MANUAL0.260.00 - 0.70 10 3/uLTBHBASOPHILS ABS MANUAL0.00 0.00 - 0.10 10 3/uLTBHSpecimen (Source)Anatomical Location / Laterality Collection Method / VolumeCollection TimeReceived Time04/30/2025 11:00 AM EDT 04/30/2025 11:01 AM EDT Narrative CLINISYNC - 04/30/2025 1:21 PM EDT Authorizing ProviderResult TypeResult StatusGeneric External Data Provider CLINISYNCFinal ResultPerforming OrganizationAddressCity/State/ZIP CodePhone Number [facility] * (ABNORMAL) ALL SED RATE (04/30/2025 11:00 AM EDT) Only the most recent of2 resultswithin the time period is included. ComponentValueRef RangeTest MethodAnalysis TimePerformed AtPathologist Signature TBH SED RATE75(H)<=20 mm/hrTBHSpecimen (Source)Anatomical Location / Laterality Collection Method / VolumeCollection TimeReceived Time04/30/2025 11:00 AM EDT 04/30/2025 11:01 AM EDT Narrative CLINISYNC - 04/30/2025 12:56 PM EDT Authorizing ProviderResult TypeResult StatusGeneric External Data Provider CLINISYNCFinal ResultPerforming OrganizationAddressCity/State/ZIP CodePhone Number [facility] * (ABNORMAL) ALL CBC WITH AUTO DIFF (04/30/2025 11:00 AM EDT) Only the most recent of2 resultswithin the time period is included. ComponentValueRef RangeTest MethodAnalysis TimePerformed AtPathologist Signature TBH WBC2.6(L)4.0 - 11.0 10 3/uLTBHTBH RBC3.77(L)4.70 - 6.10 10 6/uLTBHTBH HGB 11.3(L)14.0 - 18.0 g/dLTBHTBH HCT34.7(L)42.0 - 54.0 %TBHTBH MCV92.080.0 - 94.0 fLTBHTBH MCH30.025.9 - 34.0 pgTBHTBH MCHC32.629.9 - 35.2 g/dLTBHTBH RDW14.811.0 - 15.0 %TBHTBH LBQ269194 - 450 10 3/uLTBHTBH MPV9.89.5 - 13.5 fLTBHSpecimen (Source)Anatomical Location / LateralityCollection Method / VolumeCollection TimeReceived Time04/30/2025 11:00 AM EDT04/30/2025 11:01 AM EDT Narrative CLINISYNC - 04/30/2025 1:21 PM EDT Authorizing ProviderResult TypeResult StatusGeneric External Data Provider CLINISYNCEdited Result - FinalPerforming OrganizationAddressCity/State/ZIP Code Phone Number [facility] * (ABNORMAL) ALL C REACTIVE PROTEIN (04/30/2025 11:00 AM EDT) Only the most recent of2 resultswithin the time period is included. ComponentValueRef RangeTest MethodAnalysis TimePerformed AtPathologist Signature C REACTIVE PROTEIN3.08(H)<=0.50 mg/dLTBHSpecimen (Source)Anatomical Location / LateralityCollection Method / VolumeCollection TimeReceived Time04/30/2025 11:00 AM EDT04/30/2025 11:01 AM EDT Narrative CLINISYNC - 04/30/2025 12:12 PM EDT Authorizing ProviderResult TypeResult StatusGeneric External Data Provider CLINISYNCFinal ResultPerforming OrganizationAddressCity/State/ZIP CodePhone Number ALVARO [facility] * ALL BASIC METABOLIC PANEL (04/30/2025 11:00 AM EDT) Only the most recent of2 resultswithin the time period is included. ComponentValueRef RangeTest MethodAnalysis TimePerformed AtPathologist Signature JGKVBX906625 - 145 mmol/LTBHPOTASSIUM4.83.5 - 5.1 mmol/WNKKZVEPFGDE48779 - 107 mmol/LTBHCARBON UFMKATI64.921.0 - 32.0 mmol/LTBHANION GAP13.1FFAOUMVAPL11066 - 106 mg/dLTBHBLOOD UREA MQTJKRHR12.07.0 - 18.0 mg/dLTBHCREATININE1.040.70 - 1.30 mg/dLTBHTBH EGFR-AF UZBEK>60>=60 mL/min/1.73m 2TBHTBH EGFR-NON AF UZBEK>60 >=60 mL/min/1.73m 2TBHBUN CREATININE RATIO12.2IEGQDPXOYF9.38.5 - 10.1 mg/dLTBH Specimen (Source)Anatomical Location / LateralityCollection Method / Volume Collection TimeReceived Time04/30/2025 11:00 AM EDT04/30/2025 11:01 AM EDT Narrative CLINISYNC - 04/30/2025 12:11 PM EDT Authorizing ProviderResult TypeResult StatusGeneric External Data Provider CLINISYNCFinal ResultPerforming OrganizationAddressCity/State/ZIP CodePhone Number ALVARO [facility] * XR FOOT RT MIN 3V (04/16/2025 12:49 PM EDT)Anatomical RegionLateralityModality OtherSpecimen (Source)Anatomical Location / LateralityCollection Method / VolumeCollection TimeReceived Time04/16/2025 12:49 PM EDT Narrative 04/16/2025 12:52 PM EDT [facility] ?[address] ? [place] [address] ?XRay Report ? Signed ? Patient: SHERRY,TRISTIN ?MR#: [id number] ?? : 1940 ?Acct:[id number] ?? Age/Sex: 85 / M ?ADM Date: 08/19/25 ?? Loc: RAD ? Attending Dr: Savanna Feliz D.P.M. ? Ordering Physician: Savanna Feliz D.P.M. ?? Date of Service: 04/15/25 ?? Procedure(s): XR foot RT min 3V ?? Accession Number(s): [id number] ? cc: NIKKO LOVELACE ; Savanna Feliz D.P.M. ? [facility] ? [address] ? [place] [address] ? Patient Name: ?? TRISTIN GRAY ? MRN: [facility]:[id number] ? date: 1940 ?Sex: M ?? Assigned Patient Location: RAD ?? Current Patient Location: WC ?? Accession/Order Number: [id number] ?? Exam Date: 04/16/2025 ??12:46 ?Report Date: 04/16/2025 ??12:49 ? At the request of: ?? SAVANNA ??CRISTINE ??DPM ? Procedure: ??XR foot RT min 3V ? 3 views right foot plain film with weightbearing ? COMPARISON:None ? HISTORY: Right great toe infection. ? ACUTE FINDINGS: Erosive changes of the medial portion of the tuft of the first ?? toe. ? DEGENERATIVE CHANGE: Unremarkable ? SOFT TISSUE FINDINGS: Gauze on the first toe. ??Soft tissue swelling. ??No ?? subcutaneous air. ??No radiodense foreign body. ??Ulceration. ? JOINT EFFUSION: None ? POSTOP CHANGES: None ? BONE MINERALIZATION: Adequate ? XR/XR foot RT min 3V ?? IMPRESSION: Osteomyelitis of the medial aspect of the tuft of the first toe. ? Impression dictated by: Cristian Rodriguez M.D. ??04/16/2025 12:49 PM ? Dictation Location: RADIO-PC-20 ? Electronically authenticated by: [id number] ??Y ?? Date: 04/16/2025 ??12:49 ? Dictated By: ?Cristian Rodriguez D.O. ? Signed By: ?04/16/25 1252 ? DD/ 1249 ? TD/TT: ? Human Resources Talent Manager: Procedure Note Radiology, Radiologist, - 04/16/2025 [place] [address] XRay Report Signed Patient: TRISTIN GRAYMR#: [id number] : 9Acct:[id number] Age/Sex: 85 / MADM Date: 04/15/25 Loc: RAD Attending Dr: Savanna Feliz D.P.M. Ordering Physician: Savanna Feliz D.P.M. Date of Service: 04/15/25 Procedure(s): XR foot RT min 3V Accession Number(s): [id number] cc: NIKKO LOVELACE ; Savanna Feliz D.P.M. The [place] [id number] Patient Name: TRISTIN GRAY MRN: [facility]:[id number] date: 1940 Sex: M Assigned Patient Location: [facility] Current Patient Location: Accession/Order Number: [id number] Exam Date: 04/16/2025 12:46 Report Date: 04/16/2025 [...] Rodriguez M.D. 04/16/2025 12:49 PM Dictation Location: [place] [address] Electronically authenticated by: [id number] Y Date: 2:49 Dictated By: Cristian Rodriguez D.O. Signed By:04/16/25 1252 DD/ 1249 TD/TT: Human Resources Talent Manager: Authorizing ProviderResult TypeResult StatusGeneric External Data Provider CLINISYKS IMAGINGFinal Result * MR foot right wo IV contrast (04/15/2025 8:44 AM EDT)Anatomical Region LateralityModalityLower Extremities, FootRightMagnetic ResonanceSpecimen (Source)Anatomical Location / LateralityCollection Method / VolumeCollection TimeReceived Time04/15/2025 9:53 AM EDT Impressions 04/15/2025 9:58 AM [...] excluded. ELECTRONICALLY SIGNED BY: Dom Ruiz DO Authorizing ProviderResult TypeResult StatusNikko Lovelace MDIMGraeme MRI PROCEDURES Final Result * (ABNORMAL) MECA (04/08/2025 12:00 AM EDT)ComponentValueRef RangeTest Method Analysis TimePerformed AtPathologist QxgjeqynnYWPG47.731(A)23.000 - 31.199 ppm 04/09/2025 1:18 PM EDTHealthTrackRx of RhodesMECADetected(A)23.000 - 31.199 ppm04/09/2025 1:18 PM EDTHealthTrackRx of RhodesTET B, TET M23.751 (A)23.000 - 27.778 ppm04/09/2025 1:18 PM EDTHealthTrackRx of RhodesTET B, TET MDetected(A)23.000 - 27.778 ppm04/09/2025 1:18 PM EDTHealthTrackRx of RhodesACINETOBACTER BAUMANNII (ACUTE WOUND)019.961 - 24.689 ppm04/09/2025 1:19 PM EDTHealthTrackRx of RhodesACINETOBACTER BAUMANNII (ACUTE WOUND)Not Jxqtynpi72.961 - 24.689 ppm04/09/2025 1:19 PM EDTHealthTrackRx of [place] BACTEROIDES FRAGILIS, VULGATUS (ACUTE WOUND)23.270(A)19.961 - 24.689 ppm 04/09/2025 1:18 PM EDTHealthTrackRx of RhodesBACTEROIDES FRAGILIS, VULGATUS (ACUTE WOUND)Detected(A)19.961 - 24.689 ppm04/09/2025 1:18 PM EDT [facility]Track[facility] of RhodesCITROBACTER FREUNDII (ACUTE WOUND)019.961 - 24.689 ppm04/09/2025 1:19 PM EDTHealthTrackRx of RhodesCITROBACTER FREUNDII (ACUTE WOUND)Not Kixiirrq55.961 - 24.689 ppm04/09/2025 1:19 PM EDT [facility] of RhodesCLOSTRIDIUM PERFRINGENS, NOVYI, SEPTICUM (ACUTE WOUND)019.961 - 24.689 ppm04/09/2025 1:19 PM EDTHealthTrackRx of [place] CLOSTRIDIUM PERFRINGENS, NOVYI, SEPTICUM (ACUTE WOUND)Not Rzpuwgts26.961 - 24.689 ppm04/09/2025 1:19 PM EDTHealthTrackRx of RhodesENTEROBACTER CLOACAE COMPLEX, KLEBSIELLA (ENTEROBACTER) AEROGENES ((A)019.961 - 24.689 ppm 04/09/2025 1:19 PM EDTHealthTrackRx of RhodesENTEROBACTER CLOACAE COMPLEX, KLEBSIELLA (ENTEROBACTER) AEROGENES ((A)Not Rocvvdgj17.961 - 24.689 ppm 04/09/2025 1:19 PM EDTHealthTrackRx of RhodesENTEROCOCCUS FAECALIS, CKLWMNN454.961 - 24.689 ppm04/09/2025 1:19 PM EDTHealthTrackRx of [place] ENTEROCOCCUS FAECALIS, FAECIUMNot Yslhuofy84.961 - 24.689 ppm04/09/2025 1:19 PM EDTHealthTrackRx of RhodesESCHERICHIA COLI (ACUTE WOUND)019.961 - 24.689 ppm04/09/2025 1:19 PM EDTHealthTrackRx of RhodesESCHERICHIA COLI (ACUTE WOUND)Not Qitgqmfa59.961 - 24.689 ppm04/09/2025 1:19 PM EDT [facility]Track[facility] of RhodesKLEBSIELLA PNEUMONIAE, OXYTOCA (ACUTE WOUND)019.961 - 24.689 ppm04/09/2025 1:19 PM EDTHealthTrackRx of RhodesKLEBSIELLA PNEUMONIAE, OXYTOCA (ACUTE WOUND)Not Tkrvuxbm51.961 - 24.689 ppm04/09/2025 1:19 PM EDTHealthTrackRx of RhodesPROTEUS MIRABILIS, VULGARIS (ACUTE WOUND)22.966(A)19.961 - 24.689 ppm04/09/2025 1:18 PM EDTHealthTrackRx of RhodesPROTEUS MIRABILIS, VULGARIS (ACUTE WOUND)Detected(A)19.961 - 24.689 ppm04/09/2025 1:18 PM EDTHealthTrackRx of RhodesPSEUDOMONAS AERUGINOSA (ACUTE WOUND)019.961 - 24.689 ppm04/09/2025 1:19 PM EDTHealthTrackRx of RhodesPSEUDOMONAS AERUGINOSA (ACUTE WOUND)Not Ujszshww49.961 - 24.689 ppm 04/09/2025 1:19 PM EDTHealthTrackRx of RhodesSERRATIA MARCESCENS (ACUTE WOUND)019.961 - 24.689 ppm04/09/2025 1:19 PM EDTHealthTrackRx of [facility] SERRATIA MARCESCENS (ACUTE WOUND)Not Ducijifs57.961 - 24.689 ppm04/09/2025 1:19 PM EDTHealthTrackRx of RhodesSTAPHYLOCOCCUS AUREUS (ACUTE WOUND) 24.790(A)19.961 - 24.689 ppm04/09/2025 1:18 PM EDTHealthTrackRx of [place] STAPHYLOCOCCUS AUREUS (ACUTE WOUND)Detected(A)19.961 - 24.689 ppm04/09/2025 1:18 PM EDTHealthTrackRx of RhodesSTREPTOCOCCUS AGALACTIAE (GROUP B STREP) (ACUTE WOUND)019.961 - 24.689 ppm04/09/2025 1:19 PM EDTHealthTrackRx of RhodesSTREPTOCOCCUS AGALACTIAE (GROUP B STREP) (ACUTE WOUND)Not Detected 19.961 - 24.689 ppm04/09/2025 1:19 PM EDTHealthTrackRx of [place] STREPTOCOCCUS PYOGENES (GROUP A STREP) (ACUTE WOUND)019.961 - 24.689 ppm 04/09/2025 1:19 PM EDTHealthTrackRx of RhodesSTREPTOCOCCUS PYOGENES (GROUP A STREP) (ACUTE WOUND)Not Ntfjphmc39.961 - 24.689 ppm04/09/2025 1:19 PM EDT [facility]TrackRx of RhodesVIBRIO CHOLERAE, PARAHAEMOLYTICUS, VULNIFICUS (ACUTE WOUND)023.000 - 31.296 ppm04/09/2025 1:19 PM EDTHealthTrackRx of RhodesVIBRIO CHOLERAE, PARAHAEMOLYTICUS, VULNIFICUS (ACUTE WOUND)Not Hoscwaah80.000 - 31.296 ppm04/09/2025 1:19 PM EDTHealthTrackRx of [place] Specimen (Source)Anatomical Location / LateralityCollection Method / Volume Collection TimeReceived NgcuUmxwl09/ 4:10 AM EDT Narrative Authorizing ProviderResult TypeResult StatusZoë King PAL BLOOD ORDERABLESEdited Result - FinalPerforming OrganizationAddressCity/State/ZIP Code Phone Number [facility] [address] [facility] [place] [address] * HERPES SIMPLEX VIRUS 1 (04/08/2025 12:00 AM EDT)ComponentValueRef RangeTest MethodAnalysis TimePerformed AtPathologist SignatureHERPES SIMPLEX VIRUS 10 23.000 - 32.355 ppm04/09/2025 11:32 AM EDTHealthTrackRx of RhodesHERPES SIMPLEX VIRUS 1Not Fkldzkbd68.000 - 32.355 ppm04/09/2025 11:32 AM EDT [facility] RhodesHERPES SIMPLEX VIRUS 2023.000 - 31.433 ppm 04/09/2025 11:32 AM EDTHealthTrackRx of RhodesHERPES SIMPLEX VIRUS 2Not Hkkazctk33.000 - 31.433 ppm04/09/2025 11:32 AM EDTHealthTrackRx of [place] HUMAN MONKEYPOX FKPYS335.000 - 32.544 ppm04/09/2025 11:37 AM EDTHealthTrackRx of [facility] MONKEYPOX VIRUSNot Igzjllrg18.000 - 32.544 ppm04/09/2025 11:37 AM EDTHealthTrackRx of RhodesVARICELLA ZOSTER VIRUS (HUMAN HERPESVIRUS 3)023.000 - 31.749 ppm04/09/2025 11:32 AM EDTHealthTrackRx of LouisvilleVARICELLA ZOSTER VIRUS (HUMAN HERPESVIRUS 3)Not Bkpyjqss53.000 - 31.749 [facility]04/09/2025 11:32 AM EDTHealthTrackRx of RhodesSpecimen (Source) Anatomical Location / LateralityCollection Method / VolumeCollection Time Received VpnzCcaif86/ 4:10 AM EDT Narrative Authorizing ProviderResult TypeResult StatusZoë Arteaga Hemmer PALAB BLOOD ORDERABLESFinal ResultPerforming OrganizationAddressCity/State/ZIP CodePhone Number [facility] [address] [place] [address] from Last 3 Months Insurance Care Teams Team MemberRelationshipSpecialtyStart DateEnd Date Nikko Lovelace MD [address] [facility] [address] [place] [address] PCP - [employer]1 Nikko Lovelace MD [address] [facility] [address] [place] [address] PCP - GeneralFamily Medicine03/09/23 Elaine Saab LPN [address] [facility] [address] [place] [address] 11/15/24
--- OUTSIDE RECORDS SUMMARY | 2025-06-18 10:39 | XMS_ITS | Encounter Summary ---
Author Organization [facility] Healthcare Address [address] [place] [address] Care Team Providers Care Stabber Name Role Phone Nikko Bird MD Unavailable Nikko Bird MD Primary Care Provider [phone] Elaien Saab LPN Unavailable Encounter Details DateTypeDepartmentCare Team (Latest Contact Info)Gaeulqitowv09/15/2025Patient Outreach [facility] [address] [place] [phone] Elaine Saab LPN [address] [place] [address] Social History Tobacco UseTypesPacks/DayYears UsedDateSmoking Tobacco: NeverSmokeless Tobacco: NeverAlcohol UseStandard Drinks/WeekCommentsNot Currently0 (1 standard drink = 0.6 oz pure alcohol)Coffee 1-2 cups per [id number] Health LiteracyAnswerDate RecordedHow often do you need to have someone help you when you read instructions, pamphlets, or other written material from your doctor or pharmacy? Eujugq0306/21/2024Humiliation, Afraid, Rape, and Kick questionnaireAnswerDate RecordedWithin the [...] heating?Not hard at all06/21/2024HQ-2AnswerDate RecordedPatient Health Questionnaire-2 [id number] [place] [facility] - Occupational Stress QuestionnaireAnswerDate [...] InformationValueDate RecordedSex Assigned at BirthNot on fileLegal EqlIoxf2011/09/2022 7:18 PM EDTGender IdentityNot on fileSexual OrientationNot on filedocumented as of this encounter Progress Notes * Elaine Saab LPN - 06/11/2025 12:49 PM EDT Spoke with pt for monitoring. Pt states he is doing ok. Denies any needs or concerns at this time. Flowsheet Row Patient Outreach [place] 06/11/2025 [place] [facility] with Elaine Saab LPN Week Number Call Week 4 Call Was patient contacted successfully? Yes Have you had any urgent care/ED/Hospital visits since discharge? No Any medication changes since last contact? Yes If yes, medications reconciled this encounter? Yes Is the patient taking all medications as directed? Yes Have you visited your PCP since discharge? Yes Have you visited your specialist since discharge? Yes What is the patient's perception [...] Stage 3a chronic kidney disease (CMS-HCC)- Primary COPD exacerbation (HCC) Obstructive chronic bronchitis with exacerbation documented in this encounter Additional Health Concerns AssessmentNoted TimePHQ-9 Depression Total Score: 9:00 AM EDT documented as of this encounter Care Teams Team MemberRelationshipSpecialtyStart DateEnd Date Nikko Bird MD 112 [facility] [address] [place] [address] PCP - Human08/28/17 Nikko Bird MD [address] [address] [facility] - [facility] Elaine Saab LPN [address] [address] 11/15/24documented as of this encounter
--- OUTSIDE RECORDS SUMMARY | 2025-06-18 10:39 | XMS_ITS ---
Author Organization [facility] Address [address] [place] [address] Care Team Providers Care Medical Instrument Technician Name Role Phone Nikko Bird MD Unavailable Nikko Bird MD Primary Care Provider [phone] Elaine Saab LPN Unavailable 30 Day Monitoring Program Status:Closed (Closed) Start date:05/14/2025 Enrollment date:05/14/2025 End date:06/12/2025 Close reason:Actively enrolled in CCM Continued Care and Services Coordination
--- OUTSIDE RECORDS SUMMARY | 2025-06-18 10:39 | XMS_ITS | Clinical Summary ---
Author Organization [facility] Address [address] [place] [address] Care Team Providers Care Special Education Case Manager Name Role Phone Nikko Bird MD Primary Care Provider [phone] System, Provider Not In Unavailable Unavaila ble Allergies Active AllergyReactionsCriticalityNoted DgedXjqivxbtFyzjgkqaakz94/28/2019 Elevated blood pressure, GI intolerance/ nausea/vomiting GabapentinGI Cefebcbnhea10/18/2025 Medications MedicationSigDispense QuantityRefillsLast FilledStart DateEnd DateStatus metoprolol tartrate (LOPRESSOR) 50 MG tablet Take 1 (one) tablet (50 mg total) by mouth 2 (two) times a day .Active fluticasone (FLONASE) 50 mcg/actuation nasal spray 2 (two) sprays by Each Nare route daily . 16 g 12010/12/2018Active polyethylene glycol (MIRALAX) 17 gram powder Take 17 (seventeen) g by mouth daily .09/04/2011ctive zolpidem (AMBIEN) 10 mg tablet Take 1 (one) tablet (10 mg total) by mouth nightly as needed .09/30/2019Active aspirin 81 mg cap Take 1 (one) capsule (81 mg total) by mouth daily .11/27/2019Active omeprazole (PRILOSEC) 20 MG capsule Take 1 (one) capsule (20 mg total) by mouth daily .11/27/2019Active losartan (COZAAR) 50 MG tablet Take 1 (one) tablet (50 mg total) by mouth daily .Active rivaroxaban (XARELTO) 2.5 mg tablet Take 1 (one) tablet (2.5 mg total) by mouth 2 (two) times a day .11/27/2019 Active albuterol 90 mcg/actuation inhaler Indications:Chronic obstructive pulmonary disease, unspecified COPD type (HCC) Inhale 2 (two) puffs every 4 (four) hours as needed for wheezing, shortness of breath or cough . 54 g ctive Calmoseptine 0.44-20.6 % Oint Apply 1 Application topically daily as needed .06/27/2023ctive nitroGLYCERIN (NITROSTAT) 0.[address] 1 tablet as needed by sublingual route.12/07/2022ctive furosemide (LASIX) 20 MG tablet Indications:edemaTake 1 (one) tablet (20 mg total) by mouth daily as needed Reasons: visible water retention.Active tamsulosin (FLOMAX) 0.4 mg capsule Take 1 (one) capsule (0.4 mg total) by mouth daily .Active azelastine (ASTELIN) 137 mcg (0.1 %) nasal spray 1 (one) spray by Each Nare route daily .Active atorvastatin (LIPITOR) 80 MG tablet Take 1 (one) tablet (80 mg total) by mouth nightly . 30 tablet 03/21/2025tive naloxone (NARCAN) 4 mg/actuation Brimhall Nizhoni Administer 1 spray into one nostril for known or suspected opioid overdose. If patient worsens or does not respond, may repeat in 2-3 minutes. . 2 each 5Active Additional Information Patient not taking.Reported on 04/23/2025 amoxicillin-clavulanate (AUGMENTIN) 500-125 mg per tablet 04/16/2025tive SantyL ointment 04/21/2025tive ondansetron (ZOFRAN) 4 MG tablet 04/21/2025tive oxyCODONE-acetaminophen (PERCOCET) 5-325 mg per tablet Take 1 (one) tablet by mouth every 6 (six) hours as needed for pain .04/03/2025 Active sulfamethoxazole-trimethoprim (BACTRIM,SEPTRA) 400-80 mg per tablet 04/16/2025tive Active Problems ProblemNoted DateDiagnosed DateCarotid stenosis, asymptomatic, bilateral 03/14/2025 Assessment & Plan (03/14/2025 3:32 PM EDT): Asymptomatic. No hx of CVA Non-invasive Studies: Carotid Duplex (04/2024): Left ICA with mild <50% stenosis of heterogenous plaque. Right ICA with moderate 50-69% stenosis of heterogenous plaque Posterior tibial tendinitis of right legHematoma of arm, left, initial ydkicukjz27/10/2023 Assessment & Plan (11/04/2022 7:47 AM EST): [...] acquired pneumonia of left lower lobe of lung3Pulmonary dudsso602PAD (peripheral artery disease)01/21/2022 Assessment & Plan (03/14/2025 3:28 PM EDT): [...] 2022 was known to be reduced (0.5) Cxyodoccvr54/24/2022Gangrene of left foot10/04/2018Acute pain of right lower wduircqjb45/10/2019 Assessment & Plan (09/07/2018 2:48 PM EST): -Presented to [facility] 09/04/2018 as a transfer from [place] for second opinion regarding left lower extremity [...] in pain -Reports pain is uncontrolled with ENFORCEMENT SAFETY OFFICER Dilaudid pump, and pain does not decrease [...] -Please call with questions Coronary artery disease involving coronary bypass graft of [place] heart without angina qeruhycf89/09/2019 Assessment & Plan (03/14/2025 3:30 PM EDT): S/p 3v CABG in 2017 Asymptomatic Assessment & Plan (09/05/2018 8:45 AM EST): Patient with remote coronary artery bypass grafting to 3 vessels. Patient denies chest pain at thistime. Hsbuftcapyeigvmyjf22/09/2019 Assessment & Plan (09/05/2018 8:46 AM EST): Patient with history of hypercholesteremia. Plan: ?? Continue high intensity statin medication ?? Risk factor modification. Essential wlodtitjfpqt83/09/2019 Assessment & Plan (09/05/2018 8:47 AM EST): Patient with history of hypertension. Blood pressure at this time 132/62. Plan: ?? Continue medications as prescribed. Class 1 obesity with body mass index (BMI) of 31.0 to 31.9 in adult09/05/2018 Assessment & Plan (09/05/2018 8:48 AM EST): [...] a goal BMI <30. Critical lower limb deopnmhy26/08/2019 Assessment & Plan (03/15/2025 9:12 AM EDT): Presents from Dr. 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 Pt s/p LLE critical limb ischemia [place] class 4 rest pain with distal discoloration to his toes. Pt is s/p L pop angioplasty with stent placement 08/09 at [facility] in [place], [place]. Ptwas placed on Xarelto and ASA. Pt represented to that hospiral / with increased LLE pain. On exampt has palpable bilateral femoral pulses and popliteal pulses. Unable to obtain by doppler BLE R orL DP/PT pulses. LLE is discolored *see images in this note. Plan: ?? Continue heparin at this time ?? Continue Rooke boot to left lower extremity. ?? Continue ASA, Plavix and high intensity statin medication. ?? Will sign off Encounters DateTypeDepartmentCare PdytSrkvfjfbqgk91/21/2025 1:06 PM EDT - 06/17/2025 11:59 PM EDTHospital Encounter [facility] [address] [place] [phone] Gracy Millan MD Arrived Discharge Disposition: Home06/06/2025Orders Only [place] [facility] [phone] Ludivina Garcia RN PVD (peripheral vascular disease) (Primary Dx)06/05/2025 12:51 PM EDT - 06/05/2025 11:59 PM EDTHospital Encounter [facility] [place] [phone] Gracy Millan MD Discharge Disposition: Home06/02/2025Orders Only [facility] [address] [place] [phone] Ludivina Garcia RN PVD (peripheral vascular disease) (Primary Dx)04/23/2025 3:15 PM EDTFollow-Up [facility] [address] [place] [phone] Gracy Millan MD Critical lower limb ischemia (HCC) (Primary Dx)04/23/2025 12:25 PM EDT - 04/23/2025 11:59 PM EDTHospital Encounter [facility] [address] [place] [phone] Gracy Millan MD Discharge Disposition: Home04/23/2025 12:25 PM EDT - 04/23/2025 11:59 PM EDT Hospital Encounter [place] [address] [place] [address] Gracy Millan MD Discharge Disposition: Home04/23/20251459Rwjcwm96/06/2025 12:00 PM EDTFollow-Up [facility] [address] [place] [phone] Gracy Millan MD Critical lower limb ischemia (HCC) (Primary Dx)04/02/20251226Lofmku07/22/2025 Documentation [facility] [address] [place] [phone] Brenna Galloway RN 03/14/2025 11:04 AM EDT - 03/21/2025 6:29 PM EDTHospital Encounter [facility] Thoracic Surgery [address] [place] [address] Elaine Macdonald MD [facility] Dooling, Patrick Cassidy, MD Discharge Disposition: Homefrom Last 3 Months Immunizations ImmunizationAdministration DatesNext DueINFLUENZA IIV3 65+YO FLUAD06/18/2019 Influenza, Injectable, Jwdoicoqvpnj98/25/2017Influenza, high dose seasonal 06/06/2018,05/18/2015Pneumococcal Conjugate 13-Valent (Prevnar 13)05/18/2015 Family History Medical HistoryRelationCommentsProstate cancerBrotherHeart diseaseFatherNo Known ProblemsMotherCancerPaternal AuntRelationStatusCommentsBrotherFatherMother Paternal Aunt Social History Tobacco UseTypesPacks/DayYears UsedDateSmoking Tobacco: NeverSmokeless Tobacco: NeverAlcohol UseStandard Drinks/WeekCommentsNot Currently0 (1 standard drink = 0.6 oz pure alcohol)[facility] UtilitiesAnswerDate RecordedIn the past 12 months has the electric, gas, oil, or water [employer] threatened to shut off services in your [...] homeless or living in a penitentiary (including now)?03/14/2025Sex and Gender InformationValueDate Recorded Sex Assigned at BirthNot on fileLegal CkrBbbt2712/21/2013 2:37 PM EDTGender KccihijkMccy66/08/2019 8:23 PM ESTSexual ArsfsjlimonBtbmnend74/08/2019 8:23 PM EST Last Filed Vital Signs Vital SignReadingTime TakenCommentsBlood Ckcimyvl334/7208 2:36 PM EDT Lzvrv5988/ 2:36 PM ZCUAtjeuidwgjd69.7 ??C (98.1 ??F)03/21/2025 2:58 PM EDTRespiratory Hbif528304/23/2025 2:30 PM EDTOxygen Hayrjssxnz22%04/23/2025 2:30 PM EDTInhaled Oxygen Concentration--Yoonwo473.1 kg (245 lb)04/23/2025 2:30 PM CYNRblwfr672 cm (6' 2 )04/23/2025 2:30 PM EDTBody Mass Index31.46004/23/2025 2:30 PM EDT Plan of Treatment Health MaintenanceDue DateLast DoneCommentsTetanus/Diphtheria/Pertussis (1 - Tdap)1958Zoster Vaccines (1 of 2)1989Falls Risk Gkgamzgtai94/09/2004 RSV Vaccines (1 - 1-dose 75+ series)2014Pneumococcal Vaccine: 50+ Years (2 of 2 - PPSV23, PCV20, or PCV21)Medicare Wellness Visit /3COVID-19 Vaccine ( season), 10/28/2020, 1Depression Screening/Follow-Up (PHQ-2/9)03/15/2026 03/15/2025Influenza SgvmjldRagaqokwx96/14/2025, 06/18/2019, 06/06/2018, Additional history existsHIB VaccinesAged OutNo longer eligible based on patient's age to complete this topicHPV VaccinesAged OutNo longer eligible based on patient's age to complete this topicHepatitis A VaccinesAged OutNo longer eligible based on patient's age to complete this topicHepatitis B VaccinesAged OutNo longer eligible based on patient's age to complete this topicIPV Vaccines Aged OutNo longer eligible based on patient's age to complete this topic Meningococcal ACWY VaccineAged OutNo longer eligible based on patient's age to complete this topicMeningococcal B VaccineAged OutNo longer eligible based on patient's age to complete this topicRotavirus VaccinesAged OutNo longer eligible based on patient's age to complete this topic Medical Devices ImplantedTypeAreaManufacturerDevice IdentifierShelf Expiration DateModel / Serial / LotHemostat 2 X 4in Surgicel Fibrillar - [id number] Implanted:Qty: 1 on 09/07/2018 [facility] [id number] / / [id number] 2 X 4in Surgicel Fibrillar - Sna Implanted:Qty: 1 on 03/17/2025 by [facility]ETHICON05/27/[id number] / NA / 105KURSealant 10ml Hemostatic Matrix Fast Prep Floseal W/Recothrom - [id number] Implanted:Qty: 1 on 03/17/2025 by [facility]Right: ArterialBAXTER [id number]/12/2026 [id number] / / [id number] Procedures Procedure NamePriorityDate/TimeAssociated DiagnosisCommentsUS DUPLEX BYPASS GRAFT LE LIMITED WBTPCFmreixy82/21/2025 2:15 PM EDT PVD (peripheral vascular disease) US ANKLE/BRACHIAL INDICES EXTREMITY RGQDPXOWdyqfqw85/09/2025 1:29 PM EDT PVD (peripheral vascular disease) US ANKLE/BRACHIAL INDICES EXTREMITY GGLAMCNXcrbfzh45/27/2025 2:18 PM EDT PVD (peripheral vascular disease) Critical lower limb ischemia (HCC) US DUPLEX LE BYPASS GRAFT COMPL KGJCXOxvvjug25/27/2025 2:18 PM EDT PVD (peripheral vascular disease) Critical lower limb ischemia (HCC) UHLCijwxob68/25/2025 6:06 AM EDT MAGNESIUM QNZZSOcczgbh20/25/2025 6:06 AM EDT BASIC METABOLIC FAMQTLeajifo46/25/2025 6:06 AM EDT US ANKLE/BRACHIAL INDICES EXTREMITY GGJDLWSSqfjukj38/24/2025 9:00 AM EDT FQNRtwndvv10/24/2025 4:38 AM EDT MAGNESIUM TCDNQIytbpzm27/24/2025 4:38 AM EDT BASIC METABOLIC VLVSSKiqxbpq11/24/2025 4:38 AM EDT MFYQnisnhq92/23/2025 4:55 AM EDT MAGNESIUM PSVFWCkqfori52/23/2025 4:55 AM EDT BASIC METABOLIC MCFIYGprggbk33/23/2025 4:55 AM EDT LCXXpkmtey14/22/2025 4:01 AM EDT MAGNESIUM GCURXPrkxzpe72/22/2025 4:01 AM EDT BASIC METABOLIC TRBHUEixxzns47/22/2025 4:01 AM EDT from Last 3 Months Results * Duplex Bypass Graft Right LE (06/17/2025 2:15 PM EDT)Specimen (Source) Anatomical Location / LateralityCollection Method / VolumeCollection Time Received Time06/17/2025 1:26 PM ED[address] [facility] - 06/17/2025 2:54 PM EDT Patient Info Name: ? Tristin Gray Age: ? 85 years : ? 1940 Gender: ? Male Accession #: ? [id number] Exam Date: ? 06/17/2025 1:26 PM Patient Status: ? OUTPATIENT Site Location: ? Indications ?I73.9 - Peripheral vascular disease, ??unspecified Procedure Description ??[id number] Duplex scan of lower extremity arteries or arterial bypass grafts using B-mode, color and spectral Doppler; unilateral or limited study. Recoil Spring Winder: ? Gial SUAREZ, RVS Staff Ordering Provider: ? Gracy Millan MD, LUIZA Conclusions ??* Difficult exam due to leg [...] - Peripheral vascular disease, unspecified Procedure Description 81397 Duplex scan of lower extremity arteries or arterial bypassgrafts using B-mode, color and spectral Doppler; unilateral or limited study. Recoil Spring Winder: Gail SUAREZ, RVS Staff Ordering Provider: Gracy Millan MD, NATANAEL Conclusions * Difficult exam due to leg [...] MDCMiriam VASCULAR ORDERABLESFinal ResultPerforming OrganizationAddressCity/State/ZIP CodePhone Number [employer] * Ultrasound ankle / brachial indices extremity complete (06/05/2025 1:29 PM EDT) Only the most recent of3 resultswithin the time period is included. Specimen (Source)Anatomical Location / LateralityCollection Method / Volume Collection TimeReceived Time06/05/2025 1:16 PM EDT Narrative MARK [employer] CV - 06/05/2025 2:48 PM EDT Patient Info Name: ? Tristin Gray Age: ? 85 years : ? 1940 Gender: ? Male Accession #: ? [id number] Exam Date: ? 06/05/2025 1:16 PM Patient Status: ? OUTPATIENT Site Location: ? Indications ?I73.9 - PVD (peripheral vascular disease) Procedure Description ??99932 Limited bilateral noninvasive physiologic studies of upper or lower extremity arteries with bidirectional Doppler/PVR waveform analysis at 1-2 levels. Recoil Spring Winder: ? Ginette Gonzalez RDMS, RVS Staff Ordering Provider: ? Gracy Millan MD, VI Conclusions ??* Right. ??* Right ankle brachial [...] to amputation. ??* Previous YAMILE done at [place]- Right: 0.96 Left: 0.57. Recommendations ??* This [...] Segmental BP RIGHT Brachial A mmH RIGHT RETAIL SEASONAL SPECIALIST mmH RIGHT RETAIL SEASONAL SPECIALIST Index: 0.90 RIGHT DPA mmH RIGHT DPA Index: 0.80 RIGHT YAMILE Index: 0.90 LEFT Brachial A mmH LEFT RETAIL SEASONAL SPECIALIST Index: 0.65 LEFT RETAIL SEASONAL SPECIALIST mmH LEFT DPA Index: 0.80 LEFT DPA mmH LEFT YAMILE Index: 0.80 Doppler RIGHT RETAIL SEASONAL SPECIALIST Waveform: Multiphasic RIGHT DPA Waveform: Multiphasic LEFT RETAIL SEASONAL SPECIALIST Waveform: Multiphasic LEFT DPA Waveform: Multiphasic , [...] 1:16 PM Patient Status: OUTPATIENT Site Location: [facility] I73.9 - PVD (peripheral vascular disease) Procedure Description 13951 Limited bilateral noninvasive physiologic studies of upper orlower extremity arteries with bidirectional Doppler/PVR waveform analysis at1-2 levels. Recoil Spring Winder: Ginette Gonzalez RDMS, RVS Staff Ordering Provider: Gracy Millan MD, VI Conclusions * Right. [...] to amputation. * Previous YAMILE done at [place]- Right: 0.96 Left: 0.57. Recommendations * This [...] Segmental BP RIGHT Brachial A mmH RIGHT RETAIL SEASONAL SPECIALIST mmH RIGHT RETAIL SEASONAL SPECIALIST Index: 0.90 RIGHT DPA mmH RIGHT DPA Index: 0.80 RIGHT YAMILE Index: 0.90 LEFT Brachial A mmH LEFT RETAIL SEASONAL SPECIALIST Index: 0.65 LEFT RETAIL SEASONAL SPECIALIST mmH LEFT DPA Index: 0.80 LEFT DPA mmH LEFT YAMILE Index: 0.80 Doppler RIGHT RETAIL SEASONAL SPECIALIST Waveform: Multiphasic RIGHT DPA Waveform: Multiphasic LEFT RETAIL SEASONAL SPECIALIST Waveform: Multiphasic LEFT DPA Waveform: Multiphasic , PVR RIGHT Ankle Grade: Abnormal RIGHT Transmetarsal Grade: Abnormal RIGHT Digit (PPG) Grade: Abnormal LEFT Ankle Grade: Abnormal Prior Interventions Left transmetatarsal amputation. Left femoral to peroneal arterybypass. Report Signatures Finalized by Neetu De La Rosa MD on 06/05/2025 02:48 PM Authorizing ProviderResult TypeResult StatusGracy Millan MDCV VASCULAR ORDERABLESFinal ResultPerforming OrganizationAddressCity/State/ZIP CodePhone Number MARK FORD * US Duplex Bypass Graft LE Bilateral (04/23/2025 2:18 PM EDT)Specimen (Source) Anatomical Location / LateralityCollection Method / VolumeCollection Time Received Time04/23/2025 12:53 PM EDT Narrative MARK RAINEY CV - 04/23/2025 2:41 PM EDT Patient Info Name: ? Tristin Gray Age: ? 85 years : ? 1940 Gender: ? Male Accession #: ? [id number] Exam Date: ? 04/23/2025 12:53 PM Patient Status: ? OP SERIES Site Location: ? [facility] Indications ?I73.9 - Peripheral vascular disease, ??unspecified ?I70.229 - Atherosclerosis of [place] arteries of extremities with rest pain, ??unspecified extremity Procedure Description ??79672 Duplex scan of lower extremity arteries or arterial bypass grafts using B-mode, color and spectral Doppler; unilateral or limited study. Recoil Spring Winder: ? Jigna Vera [facility], T Staff Ordering Physician: ? Gracy Millan MD, [facility] Conclusions ??* Right. ??* Less than 50% stenosis in the right femoral-peroneal bypass graft. ??* Low velocities noted in the right inflow artery and bypass graft. ??* Left. ??* Less than 50% stenosis in the left femoral-peroneal bypass graft. ??* A left proximal calf, mixed echogenic, non-vascular lesion measuring 5.1x3.4 cm noted. Correlate clinically. Prior Study Date: ? 03/14/2025 Measurements RIGHT YAMILE Index: 0.96 LEFT [...] Artery Segment: Gabriela LEFT Inflow Artery Segment: NC MACHINIST LEFT Inflow Artery PSV: 126 LEFT Inflow [...] EDV: 11 Report Signatures Finalized by Manuel ??Aisha ??, NATANAEL, RVT on 04/23/2025 02:41 PM Procedure Note Manuel Leonard MD - 04/23/2025 Patient Info Name: Tristin Gray Age: 85 years : 1940 Gender: Male Exam Date: 04/23/2025 12:53 PM Patient Status: OP SERIES Site Location: [facility] Indications I73.9 - Peripheral vascular disease, unspecified I70.229 - Atherosclerosis of [place] arteries of extremities withrest pain, unspecified extremity Procedure Description 74645 Duplex scan of lower extremity arteries or arterial bypassgrafts using B-mode, color and spectral Doppler; unilateral or limited study. Recoil Spring Winder: Jigna Vera RDMS, RVT Staff Ordering Physician: [...] Artery Segment: Gabriela LEFT Inflow Artery Segment: NC MACHINIST LEFT Inflow Artery PSV: 126 LEFT Inflow [...] MD, RPVI, RVT on 04/23/2025 02:41 PM Authorizing ProviderResult TypeResult StatusJoy Cornelio Millan [facility] VASCULAR ORDERABLESFinal ResultPerforming OrganizationAddressCity/State/ZIP CodePhone Number FUJI SYNAPSE CV * (ABNORMAL) CBC (03/21/2025 6:06 AM EDT) Only the most recent of4 resultswithin the time period is included. ComponentValueRef RangeTest MethodAnalysis TimePerformed AtPathologist Signature WBC4.33(L)4.50 - 11.00 K/mcL03/21/2025 6:[address] [facility] LABRBC3.16(L)4.50 - 5.90 M/[facility]03/21/2025 6:[address] [facility] ILECotlhgbjao63.5(L)13.5 - 17.5 g/dL03/21/2025 6:[address] [facility] IZEDupouluwbb15.0(L)41.0 - 53.0 %03/21/2025 6:[address] [facility] MOBNKT18.980.0 - 100.0 fL03/21/2025 6:[address] [facility] WPPKFZ41.226.0 - 34.0 pg03/21/2025 6:[address] [facility] WAFOFWU16.031.0 - 37.0 g/dL03/21/2025 6:[address] [facility] XKWZbfvdjeem899280 - 400 K/mcL03/21/2025 6:[address] [facility] LABRDW - CV13.711.6 - 14.8 %03/21/2025 6:[address] [facility] LABMPV9.79.4 - 12.4 fL03/21/2025 6:[address] [facility] LABNucleated RBC0.0%03/21/2025 6:[address] [facility] LABNucleated RBC Abs0.000.00 - 0.00 K/mcL03/21/2025 6:41 AM EDT [facility] LABSpecimen (Source)Anatomical Location / LateralityCollection Method / VolumeCollection TimeReceived TimeBloodBLOOD SPECIMEN / UnknownVenipuncture / Mmjhclm2503/21/2025 6:06 AM EDT03/21/2025 6:20 AM EDT Narrative Authorizing ProviderResult TypeResult StatusPatrick Magy GARCIA BLOOD ORDERABLESFinal ResultPerforming OrganizationAddressCity/State/ZIP CodePhone Number [facility] [address] [place] [address] * Magnesium (03/21/2025 6:06 AM EDT) Only the most recent of4 resultswithin the time period is included. ComponentValueRef RangeTest MethodAnalysis TimePerformed AtPathologist Signature Magnesium2.11.6 - 2.4 mg/dL03/21/2025 6:[address] [facility] LABSpecimen (Source)Anatomical Location / LateralityCollection Method / Volume Collection TimeReceived TimeBloodBLOOD SPECIMEN / UnknownVenipuncture / Unknown 03/21/2025 6:06 AM EDT03/21/2025 6:20 AM EDT Narrative Authorizing ProviderResult TypeResult StatusPatrick Magy GARCIA BLOOD ORDERABLESFinal ResultPerforming OrganizationAddressCity/State/ZIP CodePhone Number [facility] [address] [place] [address] * (ABNORMAL) Basic Metabolic Panel (03/21/2025 6:06 AM EDT) Only the most recent of4 resultswithin the time period is included. ComponentValueRef RangeTest MethodAnalysis TimePerformed AtPathologist Signature Obyrnv191377 - 145 mmol/L03/21/2025 6:[address] [facility] Potassium4.03.5 - 5.1 mmol/L03/21/2025 6:[address] [facility] LABComment:Slightly IysvykottRpyvsgul73254 - 108 mmol/L03/21/2025 6:54 AM EDT [facility] EZULyhrzulwnyk5913 - 32 mmol/L03/21/2025 6:[address] [facility] LABAnion Gvw6855 - 20 mmol/L03/21/2025 6:[address] [facility] BJYAtcxaaq088(H)65 - 99 mg/dL03/21/2025 6:[address] [facility] LMPYZC945 - 25 mg/dL03/21/2025 6:54 AM EDT [facility] LABCreatinine0.980.80 - 1.30 mg/dL03/21/2025 6:[address] [facility] VYUhPFZ73>=60 mL/min/1.73 m203/21/2025 6:[address] [facility] LABComment:Estimated GFR was calculated using the 2020 CKD-EPI creatinine equation.BUN/Creatinine Ratio19.410.0 - 20.0 03/21/2025 6:[address] [facility] LABCalcium9.48.4 - 10.2 mg/dL 03/21/2025 6:[address] [facility] LABSpecimen (Source) Anatomical Location / LateralityCollection Method / VolumeCollection Time Received TimeBloodBLOOD SPECIMEN / UnknownVenipuncture / Fbfnlbr0803/21/2025 6:06 AM EDT03/21/2025 6:20 AM EDT Narrative [facility] - 03/21/2025 6:54 AM EDT [facility] has implemented the eGFR calculation approach that does not have a coefficient for race that conforms to the NKF-ASN Task Force Recommendations. Authorizing ProviderResult TypeResult StatusPatrick Magy GARCIA BLOOD ORDERABLESFinal ResultPerforming OrganizationAddressCity/State/ZIP CodePhone Number [facility] [address] [place], [place] [id number] from Last 3 Months Insurance Advance Directives For more information, please contact: [phone] TypeDate RecordedPatient RepresentativeExplanationPower of Attorney10/13/2018 9:03 PMRECEIVED 10/13/2018 * Full Code (Latest Code Status on File) Date ActivatedDate InactivatedComments03/14/2025 5:44 PM03/21/2025 8:44 PM * Full Code Date ActivatedDate InactivatedComments03/14/2025 2:54 PM03/14/2025 5:44 PM * Full Code Date ActivatedDate InactivatedComments11/03/2022 10:28 PM11/08/2022 4:33 PM * Full Code - Unverified Date ActivatedDate InactivatedComments04/15/2022 12:22 AM04/15/2022 10:55 PM * Full Code Date ActivatedDate InactivatedComments01/19/2022 12:09 AM01/21/2022 5:56 PM Care Teams Team MemberRelationshipSpecialtyStart DateEnd Date Nikko Bird MD [address] [place] [id number] PCP - GeneralFamily Medicine09/04/18 System, Provider Not In Cardiologist11/09/22
--- OUTSIDE RECORDS SUMMARY | 2025-06-18 10:39 | XMS_ITS | Clinical Summary ---
Author Organization [facility] Address [address] [place] [address] Phone Care Team Providers Care Tactical Air Control Party Manager Name Role Phone Unavailable Primary Care Provider Unavailabl e Social History Tobacco UseTypesPacks/DayYears UsedDateSmoking Tobacco: Never AssessedSex and Gender InformationValueDate RecordedSex Assigned at BirthNot on fileLegal Sex Male07/23/2022 4:23 PM ESTGender IdentityNot on fileSexual OrientationNot on file Plan of Treatment Health MaintenanceDue DateLast DoneCommentsLipid Panel1939Medicare Annual Wellness Visit (AWV)1939DTaP/Tdap/Td Vaccines (1 - Tdap)1961 Pneumococcal Vaccine (1 of 1 - PCV)1989Zoster Vaccines (1 of 2)1989 RSV High Risk: (Elderly (60+) or Population) (1 - 1-dose 75+ series) 2014Influenza Vaccine (#1)2025OVID-19 Vaccine (1 - season) 2025HIB VaccinesAged OutNo longer eligible based on patient's [...] patient's age to complete this topic Rotavirus VaccinesAged OutNo longer eligible based on patient's age to complete this topic Insurance
--- OUTSIDE RECORDS SUMMARY | 2025-06-18 10:39 | XMS_ITS | Clinical Summary ---
Author Organization [facility] Address [address], [address] [place] [address] Care Team Providers Care Marking Machine Tender Name Role Phone Nikko Bird MD Primary Care Provider [phone] Allergies No known active allergies Medications MedicationSigDispense QuantityRefillsLast FilledStart DateEnd DateStatus aspirin 81 MG EC tablet Take 1 tablet by mouth dailyActive rivaroxaban (XARELTO) 2.5 MG TABS tablet Take 1 tablet by mouth 2 times dailyActive losartan (COZAAR) 50 MG tablet Take 1 tablet by mouth dailyActive atorvastatin (LIPITOR) 40 MG tablet Take 1 tablet by mouth dailyActive oxyCODONE (ROXICODONE) 5 MG immediate release tablet Take 1 tablet by mouth every 4 hours as needed for Pain.Active omeprazole (PRILOSEC) 20 MG delayed release capsule Take 1 capsule by mouth dailyActive albuterol (PROVENTIL) (2.5 MG/3ML) 0.083% nebulizer solution Take 3 mLs by nebulization every 6 hours as needed for WheezingActive metoprolol succinate (TOPROL XL) 50 MG extended release tablet Take 1 tablet by mouth in the morning and at bedtimeActive fluticasone (FLONASE) 50 MCG/ACT nasal spray 2 sprays by Each Nostril route daily 16 g ctive isosorbide mononitrate (IMDUR) 30 MG extended release tablet Take 1 tablet by mouth daily 30 tablet ctive Active Problems ProblemNoted DateDiagnosed DateChest pain in adult05/13/2024rteriosclerosis of coronary macgyc8705/13/2024 Overview (05/13/2024): Dr. Cee Di Giorgio, saw for clearance Triple bypass, 2017 [facility] Secondary hypercoagulable state4Paroxysmal atrial fibrillation 4Chronic kidney disease due to xqrqgmdyvojt84/13/2023PVD (peripheral vascular disease) with zjkgtjmiqhae19/13/2023 Overview (05/13/2024): Last Assessment & Plan: Patient is complaining of worsening symptoms and has had 2 Vascular surgeons Coronary artery disease involving coronary bypass graft of [place] heart without angina kiiprqov70/09/2019 Overview (05/13/2024): Last Assessment & Plan: Patient with remote coronary artery bypass grafting to 3 vessels. Patient denies chest pain at thistime. Peripheral arterial iesmecg6308/10/2018 Overview (05/13/2024): Last Assessment & Plan: S/P [...] to be reduced (0.5) Atherosclerosis of coronary ojtodf9408/30/2013enign essential hypertension 07/04/2008 Overview (05/13/2024): Last Assessment [...] prescribed. DASH diet handouts Social History Tobacco UseTypesPacks/DayYears UsedDateSmoking Tobacco: NeverSmokeless Tobacco: Never Tobacco Cessation:Counseling Given: Not Answered Alcohol UseStandard Drinks/WeekCommentsNot Currently0 (1 standard drink = 0.6 oz pure alcohol)[facility] UtilitiesAnswerDate RecordedIn the past 12 months has the electric, gas, oil, or water company threatened to shut off services in your home?No05/13/2024UDIT-CAnswerDate RecordedQ1: How often do you have a drink containing alcohol?Never05/13/2024Q2: How many drinks containing alcohol do you have on a typical day when you are drinking?Patient does not drink05/13/2024Q3: How often do you have six or more drinks on one occasion?Never05/13/2024Hunger Vital SignAnswerDate RecordedWithin the past 12 months, you worried that your food would run out before you got the money to buymore.Never true05/13/2024 Within the past 12 months, the food you bought just didn't last and you didn't have money to get more.Never true05/13/2024RAPARE - TransportationAnswerDate RecordedIn the past 12 months, has lack of transportation kept you from medical appointments or from getting medications?No05/13/2024In the past 12 months, has lack of transportation kept you from meetings, work, or from getting things needed for daily living?No05/13/2024Housing Stability Vital SignAnswerDate RecordedIn the last 12 months, was there a time when you were not able to pay the mortgage or rent on time?No05/13/2024In the past 12 months, how many times have you moved where you were living?t any time in the past 12 months, were you homeless or living in a assisted (including now)?No05/13/2024 Food InsecurityAnswerDate RecordedWithin the past 12 months, you worried that your food would run out before you got the money to buymore.Within the past 12 months, the food you bought just didn't last and you didn't have money to get more.Interpersonal Safety Domain Source: IP Abuse ScreeningAnswerDate RecordedPhysical tinnhIqhbdr78/16/2024Verbal abuseDenies 05/13/2024Emotional fbuunMfmxhf77/16/2024Financial bxvteShrjdq69/16/2024Sexual cebqwClwpzr64/16/2024Sex and Gender InformationValueDate RecordedSex Assigned at BirthNot on fileLegal WmqAdbw3010/07/2012 2:47 PM ESTGender IdentityNot on file Sexual OrientationNot on file Last Filed Vital Signs Vital SignReadingTime TakenCommentsBlood Lzfuwhyq979/54005/14/2024 8:46 AM EDT Tdyxy472505/14/2024 6:45 AM JCMFnjucdkflhj54.2 ??C (97.2 ??F)05/14/2024 6:45 AM EDTRespiratory Ddtk650505/14/2024 6:45 AM EDTOxygen Qdslevchno18%05/14/2024 6:45 AM EDTInhaled Oxygen Concentration--Goqloj320.5 kg (236 lb 15.9 oz)05/14/2024 5:30 AM NKDSmnbrr872 cm (6' 2.02 )05/13/2024 10:33 AM EDTBody Mass Index30.42 05/13/2024 10:33 AM EDT Plan of Treatment Health MaintenanceDue DateLast DoneCommentsDepression Nhlxui951Prostate Specific Antigen (PSA) Screening or Aivfybjeya09/09/1979Shingles vaccine (1 of 2)1989Respiratory Syncytial Virus (RSV) or age 60 yrs+ (1 - 1- dose 75+ series)2014nnual Wellness Visit (Medicare Advantage)08/28/2024 Flu vaccine (#1)510/05/2023, 05/31/2022, 06/21/2021, Additional history existsCOVID-19 Vaccine (2024- season)501/, 10/28/2020, 6311Vlmvjz03/17/871638/4DTaP/Tdap/Td vaccine (2 - Td or Tdap) /10/2019Pneumococcal 50+ years HyuzzqxTuajmrpye47/11/2021, 05/28/2020, 05/18/2015Hepatitis A vaccineAged OutNo longer eligible based on patient's age to complete this topicHepatitis B vaccineAged OutNo longer eligible based on patient's age to complete this topicHib vaccineAged OutNo longer eligible based on patient's age to complete this topicMeningococcal (ACWY) vaccineAged OutNo longer eligible based on patient's age to complete this topicMeningococcal B vaccineAged OutNo longer eligible based on patient's age to complete this topicPolio vaccineAged OutNo longer eligible based on patient's age to complete this topic Procedures Procedure NamePriorityDate/TimeAssociated DiagnosisCommentsLIPID PANELRoutine 05/14/2024 6:13 AM EDT from Last 3 Months or Most Recently Relevant to Health Maintenance Results * Lipid Panel (05/14/2024 6:13 AM EDT)ComponentValueRef RangeTest MethodAnalysis TimePerformed AtPathologist SignatureCholesterol, Priqv2327 - 199 mg/dL 05/14/2024 6:13 AM EDTMERCY LABORATORIESComment: Cholesterol Guidelines: <200 Desirable 200-240 ??Borderline >240 Undesirable HDL41>40 mg/dL05/14/2024 6:13 AM EDTMERCY LABORATORIESComment: HDL Guidelines: <40 Undesirable 40-59 ?Borderline >59 Desirable LDL Bydquyibhid030 - 100 mg/dL05/14/2024 6:13 AM EDTMERCY LABORATORIESComment: LDL Guidelines: <100 Desirable 100-129 ?? Near to/above Desirable 130-159 ?? Borderline >159 Undesirable Direct (measured) LDL and calculated LDL are not interchangeable tests. Chol/HDL Ratio3. 6:13 AM EDTMERCY YSKBEWUAETTRFqjokpukrqcdl39<150 mg/dL05/14/2024 6:13 AM EDTMERCY LABORATORIESComment: Triglyceride Guidelines: <150 Desirable 150-199 ??Borderline 200-499 ??High >499 Very high Based on AHA Guidelines for fasting triglyceride, May 2012. QRLO20ta/dL05/14/2024 6:13 AM EDTMERCY LABORATORIESSpecimen (Source)Anatomical Location / LateralityCollection Method / VolumeCollection TimeReceived TimeBlood BLOOD SPECIMEN / Lwolofs3205/14/2024 6:13 AM EDT05/14/2024 6:29 AM EDT Narrative Authorizing ProviderResult TypeResult StatusDanica Rama Merritt EARLY INTERVENTIONIST - CNPCHEMISTRY ORDERABLESFinal ResultPerforming OrganizationAddressCity/State/ZIP CodePhone Number [facility] [address] [place] [address], [facility] [phone] [facility] [address] [place], [place] [address] [phone] from Last 3 Months or Most Recently Relevant to Health Maintenance Insurance Advance Directives * Full Code (Latest Code Status on File) Date ActivatedDate InactivatedComments05/13/2024 1:14 AM05/14/2024 5:07 PM NameRelationshipHealthcare Agent RelationshipCommunicationJudy IsaacChildPrimary Decision Maker* Care Teams Team MemberRelationshipSpecialtyStart DateEnd Date Nikko Bird MD PCP - Dnyvpjn44/19/13
--- OUTSIDE RECORDS SUMMARY | 2025-06-18 10:39 | XMS_ITS | Encounter Summary ---
Author Organization [facility] Address [address] [place] [address] Care Team Providers Care Coal Chemist Name Role Phone Nikko Bird MD Unavailable Nikko Bird MD Primary Care Provider [phone] Elaine Saab LPN Unavailable Encounter Details DateTypeDepartmentCare Team (Latest Contact Info)Ydmfsqttzoa03/14/2025Travel Social History Tobacco UseTypesPacks/DayYears UsedDateSmoking Tobacco: NeverSmokeless Tobacco: NeverAlcohol UseStandard Drinks/WeekCommentsNot Currently0 (1 standard drink = 0.6 oz pure alcohol)Coffee 1-2 cups per uylB5684 Health LiteracyAnswerDate RecordedHow often do you need to have someone help you when you read instructions, pamphlets, or other written material from your doctor or pharmacy? Aykouy4506/21/2024Humiliation, Afraid, Rape, and Kick questionnaireAnswerDate RecordedWithin the [...] often do you have a drink containing alcohol?Never10/25/2024Q2: How many drinks containing alcohol do you have on a typical day when you are drinking?Patient does not drink06/21/2024Q3: How often do you have six or more drinks on one occasion? Never06/21/2024Overall Financial Resource Strain (CARDIA)AnswerDate RecordedHow hard is it for you to pay for the very basics like food, housing, medical care, and heating?Not hard at all06/21/2024HQ-2AnswerDate RecordedPatient Health Questionnaire-2 Ocise552Finhighland ridge hospital [place] of Occupational Health - Occupational Stress QuestionnaireAnswerDate [...] homeless or living in a fpc (including now)?No06/21/2024Sex and Gender InformationValueDate RecordedSex Assigned at BirthNot on fileLegal FgyDdwv0311/09/2022 7:18 PM EDTGender IdentityNot on fileSexual OrientationNot on filedocumented as of this encounter Functional Status * Over the past 2 weeks, how often have you been bothered by any of the following problems?QuestionAnswerDate of AssessmentAuthorLittle interest or pleasure in doing thingsNot at all06/10/2025 10:00 AM Lorraine Marks MA Feeling down, depressed, or hopelessNot at all06/10/2025 10:00 AM Lorraine Marks [facility]-2 Mhpit472 10:00 AM Lorraine Marks MA documented as of this encounter Plan of Treatment Not on file documented as of this encounter Visit Diagnoses Not on filedocumented in this encounter Additional Health Concerns AssessmentNoted TimePHQ-9 Depression Total Score: 9:00 AM EDT documented as of this encounter Care Teams Team MemberRelationshipSpecialtyStart DateEnd Date Nikko Bird MD [address] [facility] [address] [place] [address] PCP - [facility]08/28/17 Nikko Bird MD [address] [facility] [address] [place] [address] [facility] - [facility]/23 Elaine Saab LPN [address] [facility] [address] [place] [address] 11/15/24documented as of this encounter
--- OUTSIDE RECORDS SUMMARY | 2025-06-18 10:45 | XMS_ITS | CCD ---
Author Organization [facility] CliniSyid Care Team Providers Care Photographer'S Model Name Role Phone ELTAHAWY, EHAB A Unavailable Unavailable ELTAHAWY, EHAB A Unavailable Unavailable FLASH LOVELACE Unavailable Unavailable YANIRA CEE AM Unavailable Unavailable RIEGO, FILMORE A. Unavailable Unavailable RIEGO, FILMORE A. Unavailable Unavailable Flash Lovelace Primary Care Provider FLYNN MANN Attending Unavailabl e FLYNN MANN Referring Unavailabl e FLASH LOVELACE Primary Care Unavailable FLYNN MANN Admitting Unavailabl e [facility] Consulting Monisha MURO, SANTOSH YOUSIF Consulting Unavailable ISAIAS VOGT Attending Unavailable ISAIAS VOGT Referring Unavailable ISAIAS VOGT Attending Unavailable ISAIAS VOGT Referring Unavailable SHAYY WAY Attending Unavailable DUKE SANTOS Attending Unavailable DUKE SANTOS Referring Unavailable ANALIA FOX Attending Unavailable Flash Lovelcae Primary Care Provider [phone] Flash Lovelace MD Primary Care Provider Flash Lovelace MD Primary Care Provider [phone] ILEANA KANG Attending Unavailable FLASH LOVELACE Primary Care Unavailable Flash Lovelace MD Primary Care Provider Cristian Beaver Unavailable MD Flash Lovelace Primary Care Provider MD Cristian Beaver Attending Provider [phone] Flash Lovelace MD Primary Care Provider [phone] Flash Lovelace MD Primary Care Provider [phone] FLASH LOVELACE Primary Care Unavailable Dalila Arreguin Attending Unavailable FLASH LOVELACE Primary Care Physician Haven Malcolm Unavailable ALBANIA, DR VIDALES Primary Care Unavailable ARISTEORUSSEL SHINE Admitting Unavailable ARISTEO, RUSSEL Consulting Unavailable RUSSEL VALLEJO Attending Unavailable [place], DR VIDALES Primary Care Unavailable BHASKAR WILSON Admitting Unavailable BHASKAR WILSON Consulting Unavailable BHASKAR WILSON Attending Unavailable ALGHOIRAIS, MOHAMAD Attending Unavailable [place], DR VIDALES Primary Care Unavailable ZIEBER, DR MIKEY Kwon Consulting Unavailable ALGHOTHANI, MOHAMAD Admitting Unavailable ALGHOIRAIS, MOHRANDOLPHD Consulting Unavailable [place]IA, DR VIDALES Primary Care Unavailable BRENNA MOSQUERA Admitting Unavailable BRENNA MOSQUERA Consulting Unavailable BRENNA MOSQUERA Attending Unavailable System, Provider Not In Unavailable UnavailMD Flash Gutiérrez Primary Care Provider [phone] BERTA Malcolm Attending Provider MD Cristian Beaver Attending Provider [phone] Flash Lovelace MD Primary Care Provider SCAR ORTEGA Referring Unavailable FLASH LOVEL[facility] Unavailable SCAR ORTEGA Attending Unavailable FLASH LOVELACE [facility] Unavailable SELF, SELF Referring Unavailable SCAR ORTEGA Attending Unavailable MD Flash Lovelace Primary Care Provider MD Cristian Beaver Attending Provider MD Eliezer Juarez V Attending Provider MD Duke Dunbar Referring Provider BRENNA MOSQUERA Attending Unavailable FLASH LOVELACE Primary Care Unavailable GISEL MANN Admitting Unavailable ARTURO HARPER Consulting Unavailable JUAN EARL Attending Unavailable Flash Lovelace MD Unavailable Flash Lovelace MD Primary Care Provider [phone] Monday BOX STORAGE WORKER, Mary Unavailable Flash Lovelace MD Primary Care Provider Cathy LIGHT, Lorraine Unavailable [phone] Saab BOX STORAGE WORKER, Elaine Unavailable Unavailable MOUKARBJAYDEN, ELIEZER Admitting Unavailable MOUKARBJAYDEN, ELIEZER Attending Unavailable RUSSEL VALLEJO Attending Unavailable MOUKARBJAYDEN, ELIEZER Attending Unavailable MOUKARBEL, ELIEZER Attending Unavailable RUSSEL VALLEJO Attending Unavailable Saab BOX STORAGE WORKER, Elaine Unavailable [place] DIAZ, Flash Arteaga Primary Care Provider Cristian Beaver MD Attending Provider MOHSEN SARABIA Referring Unavailable MOHSEN SARABIA Admitting Unavailable [place], RUGEN M Primary Care Unavailable KEN JOHNSON Attending Unavailable CORNELL, MOHSEN DE OLIVEIRA Attending Unavailable [place], RUGEN M Primary Care Unavailable CORNELL, MOHSEN DE OLIVEIRA Attending Unavailable [place], RUGEN M Primary Care Unavailable CORNELL, MOHSEN DE OLIVEIRA Attending Unavailable [place], RUGEN M Primary Care Unavailable Cristian Beaver MD Other Provider [phone] Migdalia DIAZ, Beena Rome Attending Provider Muna Greene DO Emergency Provider Adiel Mccollum MD Admit Provider Adiel Mccollum MD Attending Provider Muna Greene DO Emergency Provider Veda DIAZ, Adiel Arteaga Admit Provider [phone] Milvia Vang APRN Other Provider Richie Woodward MD Other Provider Jhonny DIAZ, Jesse Morris Other Provider [phone] Randall Valdez MD Other Provider Ramana Gonzalez DO Other Provider Sharad DIAZ, Joyce Other Provider Misael Quinn MD Other Provider Conrad DIAZ, Yudelka Ontiveros Attending Provider [phone] Yudelka Martines MD Other Provider [phone] Ben Reddy DO Other Provider [place], RUGEN M Primary Care Unavailable WALKERMOHSEN Attending Unavailable WALKER, MOHSEN DE OLIVEIRA Referring Unavailable WALKER, MOHSEN DE OLIVEIRA Attending Unavailable [place], RUGEN M Primary Care Unavailable WALKER, MOHSEN DE OLIVEIRA Referring Unavailable [place], RUGEN M Primary Care Unavailable WALKER, MOHSEN DE OLIVEIRA Attending Unavailable WALKER, MOHSEN DE OLIVEIRA Referring Unavailable [place], RUGEN M Primary Care Unavailable WALKER, MOHSEN DE OLIVEIRA Attending Unavailable WALKER, MOHSEN DE OLIVEIRA Referring Unavailable MUNA OTTO Admitting Unavail able [place], RUGEN M Primary Care Unavailable URI VOSS Attending Unavailable MOHSEN SARABIA Consulting Unavailable [place] Flash DIAZ Primary Care Provider RAFAELA GARCIA Attending Unavailable CONSULT, PULMONOLOGY Consulting Unavailable [place], RUGEN Primary Care Unavailable SYSTEM, PROVIDER NOT IN Referring Unavaila VIVIENNE Matute Admitting Unavailable Cristian Beaver Admitting Unavailable Cristian Beaver Attending Unavailable [place], Rugen M Primary Care Unavailable Ben Reddy Attending Unavailable Adiel Mccollum Admitting Unavailable Milvia Vang Consulting Unavailable [place], Rugen M Primary Care Unavailable Richie Woodward Consulting Unavaila Jesse Juan Consulting Unavailable Randall Valdez Consulting Unavailable Ramana Gonzlaez Consulting Unavailable [place], Gualbertom Consulting Unavailable Misael Quinn Consulting Unavailable Yudelka Martines Consulting Unavaila Cristian Khanna Admitting Unavailable Cristian Beaver Attending Unavailable [place], Rugen M Primary Care Unavailable Cristian Beaver Admitting Unavailable Cristian Beaver Attending Unavailable [place], Rugen M Primary Care Unavailable WALKERMOHSEN Referring Unavailable WALKER, MOHSEN DE OLIVEIRA Attending Unavailable [place], RUGEN M Primary Care Unavailable [place], RUGEN M Attending Unavailable BHASKAR WILSON Attending Unavailable [place], RUGEN M Attending Unavailable ZOË KING Attending Unavailable [place], RUGEN M Attending Unavailable [place], RUGEN M Referring Unavailable [place], RUGEN M Attending Unavailable ZOË KING Attending Unavailable FLASH LOVELACE Attending Unavailable FLASH LOVELACE Attending Unavailable Allergies Allergy ClassificationReported Allergen(s)Allergy TypeDate of OnsetReaction(s) FacilityDoxycycline (2 sources)DoxycyclineDrug Gbfiokg44-35-3263HiweWzjhiy (1 source)52661,00; Translations: [89640,00]Propensity to adverse reactions (disorder)37-80[facility]7552[facility] (11 sources)oxyCODONE; Translations: [oxycodone]Drug Xkvzalp74-79-1882 Anaphylaxis, Anaphylaxis (disorder)[facility] (20 sources)Doxycycline; Translations: [DOXYCYCLINE]Drug Ikidkrc05-97-9611 UnknownOhioHealth (20 sources)gabapentin; Translations: [GABAPENTIN]Drug Owivnww06-29-4534DZ IntoleranceOhioHealth (10 sources)tiZANidine; Translations: [tizanidine]Drug Jwegxuq60-82-4668TdrjvbksOhiohealth [facility] (1 source)gabapentinDrug Nynrijc72-18-5289ObgegkqhxTrinity Health System Repository Medications Current Medications MedicationDrug Class(es)DatesSig (Normalized)Sig (Original)acetaminophen 325 mg / oxyCODONE hydrochloride 5 mg oral tablet (20 sources)Opioid AgonistStart: 05-09-2025 End: 69-54-9511tlhz 1 tablet by mouth every eight hours as needed1 tablet, Oral, EVERY 8 HOURS NEEDED, Starting on Mon05/09/25 at 0434, Until Mon05/13/25 at 1552, Severe Pain, Maximum dose of acetaminophen is 4000 mg from all sources in 24 hours.Start: 04-03-2025 End: 43-37-4112czgz 1 tablet by mouth every six hours for painoxyCODONE- acetaminophen (Percocet) 5-325 MG tablet Indications: PVD (peripheral vascular disease) with claudication Take 1 tablet by mouth every 6 (six) hours if needed for severe pain or moderate pain 120 tablet 05/29/2025 06/28/2025 ActiveStart: 52-94-5731yfrm 1 tablet by mouth every six hours for painoxyCODONE-acetaminophen (Percocet) 5-325 MG tablet Indications: PVD (peripheral vascular disease) with claudication Take 1 tablet by mouth every 6 (six) hours if needed for severe pain or moderate pain 15 tablet 03/31/2025 ActiveStart: 12-75-1431oyem 1 tablet by mouth every six hours for painoxyCODONE-acetaminophen (Percocet) 5-325 MG tablet Indications: PVD (peripheral vascular disease) with claudication Take 1 tablet by mouth every 6 (six) hours if needed for severe pain or moderate pain 15 tablet 03/31/2025 ActiveStart: 11-04-2022 End: 34-57-3167vizr 1 tablet by mouth every four hours as neededoxyCODONE- acetaminophen (PERCOCET) 5-325 mg per tablet 1 tabletStart: 50-90-9389rwwh 1 tablet by mouth every four hours for painPercocet 2.5/325 oral tablet 1 tab(s), Oral, q4hr for pain, Refill(s) 0 Start Date: 10/05/21 Status: OrderedStart: 10-12-2018 End: 96-21-6898ekqf 1 tablet by mouth every four hours as needed, then take 7 tablets by mouth as neededoxyCODONE-acetaminophen (PERCOCET) 5-325 mg per tablet Indications: Acute post-operative pain Take 1 (one) tablet by mouth every 4 (four) hours as needed (december) (Days supply per fill: 7) . 20 tablet 0 10/12/2018 10/19/2018 ActiveStart: 10-05-2018 End: 42-03-0230vyce 1 tablet by mouth every twenty-four hours as needed1 tablet, Oral, Once as needed, Pain, Starting 10/08/18 at 0835, For 1 dose, PACU (only) While in PACU when tolerating orals. Use oral route first, if tolerated.Start: 05-12-2017 End: 13-95-8394jzdu 1 tablet by mouth every six hours as needed for painStart: 11-90-6836unci 1 tablet by mouth every four to six hours as needed for pain Oxycodone-Acetaminophen (Percocet) 5-325 mg Tablet Active 1 TAB PO EVERY 4-6 HOURS as needed for Pain May 12, 2017 12:00am Complies with drug therapy oxyCODONE-Acetaminophen 5-325 MG Oral for 10 Days Activealbuterol 0.83 mg/ml inhalation solution (20 sources)beta2-Adrenergic AgonistStart: 13-94-5311snlq 2.5 mg by inhalation four times dailyStart: 03-14-2025 End: 37-46-5545Rjwub: 90-41-4442qqst 1 puff(s) by inhalation every four to six hours as needed for wheezingStart: 01-30-2024 End: 10-03-2070wlkl 1 puff(s) by inhalation every four hours for wheezing albuterol HFA 90 mcg/act inhaler Indications: Sinusitis, unspecified chronicity, unspecified location Inhale 1 puff every 4 (four) hours if needed for wheezing or shortness of breath 76.5 Unspecified3 11/26/2024 ActiveStart: 04-15-2022 End: 94-85-7004ottr 2 puff(s) by inhalation every four hours as needed for wheezing2 puff, Inhalation, Every 4 hours PRN, wheezing, shortness of breath, Starting on Mon04/15/22 at 0101 SPACER REQUIRED FOR ADMINISTRATIONStart: 02-25-2022 End: 47-91-5244hzby 2 puff(s) by inhalation every four hours as needed for cough albuterol 90 mcg/actuation inhaler Indications: Chronic obstructive pulmonary disease, unspecified COPD type (HCC) Inhale 2 (two) puffs every 4 (four) hours as needed for wheezing, shortness of breath or cough . 54 g 3 08/30/2022 Active Start: 01-21-2022 End: 85-51-2317lmjb 2.5 mg by inhalation every six hours as needed for wheezing albuterol (PROVENTIL) 2.5 mg /3 mL (0.083 %) nebulizer solution Take 3 mL (2.5 mg total) by nebulization every 6 (six) hours as needed for wheezing . 12 mL 2 01/21/2022 03/14/2025 Discontinued (Therapy completed)take 1 puff(s) by inhalation every four hours as neededAlbuterol 108 (90 Base) MCG/ACT Aero Soln inhaler Inhale 1 puff every 4 hours as needed for Shortness of Breath. Active Albuterol Sulfate HFA 108 (90 Base) MCG/ACT Inhalation for 50 Days Active Albuterol Sulfate HFA 108 (90 Base) MCG/ACT Inhalation for 50 Days Active albuterol (PROVENTIL) (2.5 MG/3ML) 0.083% nebulizer solution Take 2.5 mg by nebulization every 6 hours as needed for Wheezing 0 Activealbuterol 0.833 mg/ml / ipratropium bromide 0.167 mg/ml inhalation solution (20 sources)Anticholinergic, beta2-Adrenergic AgonistStart: 05-09-2025 End: mL, Nebulization, EVERY 6 HOURS, First dose on Mon05/09/25 at 0800, Until DiscontinuedStart: 02-03-2023 End: 28-39-8650faipdphghee-albuterol (Duo-Neb) 0.5-2.5 mg/3 mL nebulizer solution Indications: Chronic bronchitis,unspecified chronic bronchitis type (HCC) , COPD exacerbation (HCC) Take 3 mL by nebulization in the morning and 3 mL in the evening and 3 mL before bedtime. 270 mL 2 05/14/2025 08/12/2025 Active Start: 11-03-2022 End: 95-41-9068mhma 3 mL by inhalation every six hours3 mL, Inhalation, Every 6 hours scheduled (RT), First dose on Mon11/03/22 at 2230Start: 11-03-2022 End: 41-12-0701wrsi 3 mL by inhalation every four hours as needed3 mL, Inhalation, Every 4 hours PRN (RT), shortness of breath, Starting on Mon11/03/22 at 2228Start: 11-03-2022 End: 01-10-4015mhvhtcsbyjh-albuteroL (DUO-NEB) 0.5-2.5 mg/3 ml nebulizer Take 3 mL by nebulization 3 (three) timesa day . 11/03/2022 03/14/2025 Discontinued (Therapy completed)Start: 16-63-8172oqdimvkhmgb-albuterol (DUONEB) nebulizer solution 1 ampuleamLODIPine 5 mg oral tablet (14 sources)Dihydropyridine Calcium Channel BlockerStart: 04-24-2024 End: 79-67-0818gmdz 1 tablet by mouth in the morningamLODIPine (Norvasc) 5 MG tablet Take 5 mg by mouth in the morning. 04/24/2024 05/21/2024 Discontinued (Other)Start: 10-12-2023 End: 00-48-0684dets 1 tablet by mouth once dailyAmlodipine 10 mg tablet Discontinued 10 MG PO Daily October 12, 2023 1:00am May 02, 2025 4 :14pm End: 89-05-4599xuJSOPBgvl (NORVASC) 5 MG tabletamoxicillin 500 mg / clavulanate 125 mg oral tablet (20 sources)Penicillin-class AntibacterialStart: 49-13-2372xgpflxrkamo- clavulanate (AUGMENTIN) 500-125 mg per tablet 04/16/2025 ActiveStart: 04-16-2025 End: 09-59-7485ozia 1 tablet by mouth in the morningamoxicillin-clavulanate (Augmentin) 500-125 MG tablet Take 500 mg by mouth in the morning and 500 mg before bedtime. 04/16/2025 05/20/2025 Discontinued (Therapy completed)Start: 04-10-2025 End: 18-92-4932iakc 1 tablet by mouth in the morningamoxicillin-clavulanate (Augmentin) 875-125 MG tablet Indications: Ischemic toe ulcer, right, with 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) Take 1 tablet (875 mg) by mouth in the morning and 1 tablet (875 mg) in the evening. Take with meals. Do all this for 7 days. 14 tablet 04/10/2025 04/17/2025 ActiveStart: 10-22-2018 End: 95-86-5377xgqr 1 tablet by mouth every twelve hoursamoxicillin-clavulanate (AUGMENTIN) 875-125 mg per tablet Take 1 tablet by mouth every 12 (twelve) hours . 0 10/22/2018 03/13/2019 Discontinued (Therapy completed) End: 04-79-1429miwt 1 tablet by mouth every twelve hoursAmoxicillin-clavulanate 500-125 MG tablet Take 1 tablet by mouth every 12 hours. 05/13/2025 Discontinued (Stop Taking at Discharge)azelastine hydrochloride 0.137 mg/actuat metered dose nasal spray (20 sources)Histamine-1 Receptor AntagonistStart: 05-19-8624nxff 1 spray(s) nasal route once daily as neededazelastine 0.1 % Solution nasal spray 1 spray by Nasal route daily as needed. Use in each nostril as directed 05/13/2025 Active Start: 03-15-2025 End: spray, Each Nare, Daily, First dose on 03/15/25 at 0900 Start: 08-75-1489vxvf 1 spray(s) nasal route twice daily as neededStart: 11-04-2024 End: 08-90-8604ekmn 1 spray(s) nasal route in the morningAzelastine HCl 137 MCG/SPRAY solution Indications: Seasonal allergic rhinitis due to pollen Administer 1 spray into affected nostril(s) in the morning and 1 spray before bedtime. Do all this for 14 days. 90 mL 3 11/04/2024 05/20/2025 Discontinued (Other)Start: 05-21-2024 End: 18-38-6705wehk 1 spray(s) nasal route in the morningAzelastine HCl 137 MCG/SPRAY solution Indications: Seasonal allergic rhinitis due to pollen Administer 1 spray into affected nostril(s) in the morning and 1 spray before bedtime. Do all this for 14 days. 30 mL 08/12/2024 Active End: 99-19-8601mzxs 1 spray(s) nasal route twice dailyazelastine 0.1 % Solution nasal spray 1 spray by Nasal route 2 times daily. Use in each nostril as d irected 05/13/2025 Discontinuedazithromycin 250 mg oral tablet (7 sources)Macrolide AntimicrobialStart: 04-29-2025 End: 91-36-2618yvxw 2 tablets by mouth once daily, then take 1 tablet by mouth once dailyazithromycin (Zithromax) 250 MG tablet Indications: Acute non- recurrent sinusitis, unspecified location Take 2 tablets (500 mg) by mouth Daily for 1 day, THEN 1 tablet (250 mg) Daily for 4 days. 6 tablet 04/29/2025 05/04/2025 ActiveStart: 06-17-2024 End: 68-67-0085pzar 1 tablet by mouth once dailyazithromycin (Zithromax) 250 MG tablet Indications: Upper respiratory tract infection, unspecified type Take 1 tablet (250 mg) by mouth Daily for 5 days 6 tablet 06/17/2024 06/22/2024 Active benzonatate 100 mg oral capsule (20 sources)Non-narcotic AntitussiveStart: 86-73-8132mfgvxuszeas (Tessalon) 100 MG capsule Three times daily 05/08/2025 ActiveStart: 17-33-1108qjkl 2 capsules by mouth three times dailyStart: 10-30-2022 End: 75-37-6123casonjytjnz (TESSALON) capsule 100 mgStart: 10-30-2022 End: 67-42-5010zamjrbiqegs (TESSALON) capsule 100 mg End: 52-09-3100cvuc 1 capsule by mouth three times daily as needed for cough benzonatate (TESSALON) 100 MG capsule Take 100 mg by mouth 3 (three) times a day as needed for cough . 0 03/13/2019 Discontinued (Therapy completed)120 actuat budesonide 0.16 mg/actuat / formoterol fumarate 0.0048 mg/actuat / glycopyrrolate 0.009 mg/actuat metered dose inhaler (7 sources)Corticosteroid, beta2-Adrenergic AgonistStart: 59-05-3925gqyh 1 puff(s) by inhalation in the scyybipRxzcjtj-Hltskczjjhj-Gtkflewvlv (Breztri Aerosphere) 160-9-4.8 MCG/ACT aerosol Indications: Pneumonia due to infectious organism, unspecified laterality, unspecified part of lung Inhale 1 puff in the morning and at noon 18 g 05/20/2025 Activeciprofloxacin 500 mg oral tablet (2 sources)Quinolone AntimicrobialStart: 01-09-2025 End: 67-43-5309eeli 0.5 tablet by mouth in the morningciprofloxacin (Cipro) 500 MG tablet Indications: Dysuria Take 0.5 tablets (250 mg) by mouth in the morning and 0.5 tablets (250 mg) before bedtime. Do all this for 5 days. 5 tablet 01/09/2025 01/14/2025 Activeciprofloxacin 3 mg/ml / dexamethasone 1 mg/ml otic suspension (2 sources)Corticosteroid, Quinolone AntimicrobialStart: 06-10-2025 End: 45-94-3761rdhwxlbcoublp-dexAMETHasone (CiproDEX) otic suspension Indications: Acute eczematoid otitis externaof right ear Administer 4 drops into affected ear(s) in the morning and 4 drops before bedtime. Do all this for 7 days. 7.5 mL 06/10/2025 06/17/2025 Activecollagenase 0.25 unt/mg topical ointment (20 sources)Collagen-specific EnzymeStart: 04-21-2025 End: 74-26-5655Reumut 250 UNIT/GM ointment Apply 1 application topically Daily 04/21/2025 ActiveStart: 48-77-3982MzkoqU ointment 04/21/2025 Activedoxycycline hyclate 100 mg oral tablet (14 sources)Tetracycline-class DrugStart: 96-30-3575iaxy 1 tablet by mouth twice dailyStart: 01-17-2022 End: 68-27-6950mrsg 1 capsule by mouth twice dailydoxycycline hyclate (VIBRAMYCIN) 100 MG capsule Take 100 mg by mouth 2 (two) times a day . 0 022 01/19/2022 DiscontinuedStart: 10-12-2018 End: 91-23-3004soor 1 tablet by mouth twice dailydoxycycline hyclate (VIBRA- TABS) 100 MG tablet Take 1 (one) tablet (100 mg total) by mouth 2 (two) times a day for 10 days . 20 tablet 0 10/12/2018 10/22/2018 ActiveStart: 09-12-2018 End: 83-29-6440vajd 1 tablet by mouth twice dailydoxycycline hyclate (VIBRA- TABS) 100 MG tablet Take 1 (one) tablet (100 mg total) by mouth 2 (two) times a day for 10 days . 28 tablet 0 09/20/2018 09/30/2018 Activeergocalciferol 1.25 mg oral capsule (13 sources)Provitamin D2 Compound End: 95-30-5520bfbbxiceoevydz (Vitamin D-2) 1.25 MG (32030 UT) capsule Take 50,000 Units by mouth every 7 (seven) days. 05/21/2024 Discontinued (Other) End: 19-57-5875dafb 1 capsule by mouth every weekergocalciferol (ERGOCALCIFEROL) 1,250 mcg (50,000 unit) capsule Take 1 (one) capsule (50,000 Units total) by mouth once a week . 0 08/09/2023 Discontinued (Discontinued by another clinician)furosemide 20 mg oral tablet (20 sources)Loop DiureticStart: 03-15-2025 End: 14-49-4978mzzb 20 mg by mouth every other day20 mg, Oral, Every other day, First dose on 03/15/25 at 0900Start: 42-75-4792zhja 1 tablet by mouth twice dailyStart: 11-03-2022 End: 38-83-8907iuunjstjbt (LASIX) injection 20 mgStart: 05-10-2017 End: 70-44-4583mipwjjvlvt (Lasix) 20 MG tablet Indications: Benign essential hypertension TAKE 1 TABLET EVERY MORNING 90 tablet 3 10/14/2024 Fsjoey44 hr guaiFENesin 600 mg extended release oral tablet (4 sources)Start: 05-08-2025 End: 05-56-7523tusyMYNvypg (Mucinex) 600 MG 12 hr tablet Twice daily 05/08/2025 05/20/2025 Discontinued (Other)24 hr isosorbide mononitrate 30 mg extended release oral tablet (3 sources)Nitrate VasodilatorStart: 05-14-2024 End: 63-42-3058qfva 1 tablet by mouth once dailyisosorbide mononitrate ER (Imdur) 30 MG 24 hr tablet Take 1 tablet by mouth Daily 05/14/2024 05/21/2024 Discontinued (Other)lanolin 0.157 mg/mg / menthol 0.0044 mg/mg / petrolatum 0.24 mg/mg / zinc oxide 0.206 mg/mg topicalointment (20 sources)Start: 73-27-2839Modbndy-Zinc Oxide (Calmoseptine) 0.44-20.6 % ointment Indications: 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HCC) Apply 1 Application topically every 6 (six) hours if needed (Barrier Cream) 100 g 3 06/10/2025 ActiveStart: 22-20-2850Bnreofq-Zinc Oxide (Calmoseptine) 0.44-20.6 % ointment Indications: 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HCC) Apply 1 Application topically every 6 (six) hours if needed (Barrier Cream) 100 g 3 06/10/2025 ActiveStart: 04-26-2024 End: 65-17-9125Zzkyrqc-Zinc Oxide (Calmoseptine) 0.44-20.6 % ointment Indications: 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HCC) Apply 1 Application topically every 6 (six) hours if needed (Barrier Cream) 100 g 3 04/26/2024 06/10/2025 Discontinued (Reorder)Start: 06-27-2023 End: 95-24-6546Tswdctnvybbo 0.44-20.6 % ointment 06/27/2023 04/26/2024 Discontinued (Reorder)levoFLOXacin 500 mg oral tablet (10 sources)Quinolone AntimicrobialStart: 05-27-2025 End: 44-14-9602sdzl 1 tablet by mouth once dailylevoFLOXacin (Levaquin) 500 MG tablet Indications: Abscess of lower lobe of left lung with pneumonia (HCC) Take 1 tablet (500 mg) by mouth Daily for 14 days 14 tablet 05/27/2025 06/10/2025 ActiveStart: 11-09-2022 End: 42-81-5462jydc 1 tablet by mouth once dailylevoFLOXacin (LEVAQUIN) 750 MG tablet Take 1 (one) tablet (750 mg total) by mouth daily for 5 days Start: 11/09/22. 5 tablet 0 11/09/2022 11/14/2022 ActiveStart: 10-30-2022 End: 28-98-8567eeud 1 tablet by mouth once dailylevoFLOXacin (LEVAQUIN) 750 MG tablet Take 1 tablet by mouth daily for 5 days 5 tablet 0 /05/2023 Active End: 55-61-7178casdXHXXpofs (LEVAQUIN) 500 MG tabletLisinopril (19 sources)Angiotensin Converting Enzyme InhibitorStart: 28-87-1240yalhwgtsud Start Date: 07/03/19 Status: OrderedStart: 05-10-2017 End: 30-37-2829ntyo 1 tablet by mouth once dailyLisinopril 10 mg Tablet Discontinued 10 MG PO Daily May 10, 2017 12:00am May 12, 2017 11:03am End: 30-57-7862qnke 1 tablet by mouth once dailylisinopriL (PRINIVIL,ZESTRIL) 5 MG tablet Take 1 (one) tablet (5 mg total) by mouth daily . 0 08/09/2023 Discontinued (Discontinued by another clinician) End: 54-98-0306uaos 1 tablet by mouth once dailylisinopril (PRINIVIL,ZESTRIL) 40 MG tablet Take 40 mg by mouth daily . 0 10/09/2019 Discontinued (Therapy completed)menthol 0.0044 mg/mg / zinc oxide 0.206 mg/mg topical ointment (16 sources)Start: 71-00-3693Oidkcfnithzg 0.44-20.6 % Oint Apply 1 Application topically daily as needed . 06/27/2023 ActiveStart: 18-56-9504Ggsjqyigzvsy 0.44- 20.6 % Oint 06/27/2023 ActivemethylPREDNISolone 125 mg injection (12 sources)CorticosteroidStart: 96-78-4151htkgvjYOBQCSDlbgqo sodium (SOLU- MEDROL) injection 125 mgStart: 11-24-2021 End: 79-02-5109sxtntsYKJERWarcqeg 4 MG Tab Therapy Pack tablet Take 1 tablet by mouth As directed. follow package directions 21 tablet 11/24/2021 05/09/2025 Discontinuedmetoprolol tartrate 50 mg oral tablet (20 sources)beta-Adrenergic BlockerStart: 01-19-2022 End: 70-39-0502iedv 50 mg by mouth twice daily50 mg, Oral, 2 times daily, First dose on Mon01/19/22 at 0900Start: 09-05-2018 End: 11-03-8409pbbv 50 mg by mouth once daily50 mg, Oral, Daily, First dose on Mon09/05/18 at 1700 DO NOT CRUSH OR CHEW.Start: 05-10-2017 End: 68-48-4853xtcmqzmvbt tartrate (Lopressor) 50 MG tablet Indications: Benign essential hypertension TAKE 1 TABLET IN THE MORNING AND 1 TABLET BEFORE BEDTIME. 180 tablet 3 04/29/2025 ActiveStart: 05-10-2017 End: 66-07-9937ioag 1 tablet by mouth in the morningmetoprolol tartrate (Lopressor) 50 MG tablet Indications: Benign essential hypertension Take 1 table t (50 mg) by mouth in the morning and 1 tablet (50 mg) before bedtime. 180 tablet 3 06/20/2024 06/20/2025 Active End: 71-79-6779nivu 1 tablet by mouth twice dailymetoprolol succinate 50 MG PO tablet XL Take 1 tablet by mouth 2 times daily. 05/09/2025 Discontinued End: 91-36-4178tzme 1 tablet by mouth every twenty-four hoursmetoprolol succinate (TOPROL-XL) 50 MG 24 hr tablet Take 50 mg by mouth . 0 09/13/2018 Discontinuedmontelukast 10 mg oral tablet (20 sources)Leukotriene Receptor AntagonistStart: 03-21-2024 End: 92-69-6774cawc 1 tablet by mouth at bedtimemontelukast (Singulair) 10 MG tablet Indications: Seasonal allergic rhinitis due to pollen Take 1 tablet (10 mg) by mouth at bedtime 30 tablet 11 03/21/2024 03/31/2025 Discontinued (Other) naloxone (NARCAN) 4 mg/actuation [place] (6 sources)Start: 00-74-0615bgjyhkcy (NARCAN) 4 mg/actuation [place] Administer 1 spray into one nostril for known or suspected opioid overdose. If patient worsens or does not respond, may repeat in 2-3 minutes. . 2 each 03/21/2025 ActiveStart: 97-52-1992kcgpoetq (NARCAN) 4 mg/actuation [place] Administer 1 spray into one nostril for known or suspected opioid overdose. If patient worsens or does not respond, may repeat in 2-3 minutes. . 2 each 03/21/2025nitroglycerin 0.4 mg sublingual tablet (20 sources)Nitrate VasodilatorStart: 12-07-2022 End: 72-16-5269phazcitpfftqr (Nitrostat) 0.4 MG SL tablet Indications: PVD (peripheral vascular disease) with claudication Place 1 tablet (0.4 mg) under the tongue every 5 (five) minutes if needed for chest pain 90tablet 1 03/31/2025 ActiveStart: 23-56-8373flmquERWCPTXK (NITROSTAT) 0.[address] 1 tablet as needed by sublingual route. 12/07/2022ctiveStart: 01-19-2022 End: .4 mg, Sublingual, Every 5 min PRN, chest pain, Starting on Mon01/19/22 at 0335, For 3 doses Anginal pain, may repeat B3kmpfhbi x3, then notify physician. DO NOT CRUSH OR CHEW.Start: 09-05-2018 End: 63-84-3207zgzucPYFFOATT (NITROSTAT) SL tablet 0.4 mg End: 97-71-8303wmdwmPLHCWQLX (NITROSTAT) 0.[address] under the tongue every 4 to 6 hours as needed . 0 01/21/2022 Discontinued (Stop Taking at Discharge)omeprazole 20 mg delayed release oral capsule (20 sources)Proton Pump InhibitorStart: 04-25-2022 End: 16-14-3090Jqxbpvkqsy 40 mg Capsule,Delayed Release(Dr/Ec) Discontinued 20 MG PO Daily as needed for heartburnAugust 2021 12:00am May 02, 2025 4:14pmStart: 88-31-9573jqqh 20 mg by mouth once dailyOmeprazole Active 20 MG PO Daily April 24, 2022 11:00pmStart: 87-06-3022owwm 1 capsule by mouth once dailyOmeprazole (Prilosec) 40 mg Capsule,Delayed Release(Dr/Ec) Active 40 MG PO Daily April 25, 2022 12:00amStart: 61-53-7722qearzmxmgv (PriLOSEC) [address] capsule Indications: Heartburn TAKE 1 CAPSULE EVERY DAY 90 capsule Activeondansetron 4 mg oral tablet (20 sources)Serotonin-3 Receptor AntagonistStart: 04-21-2025 End: 93-15-5295lotjgjkngkl (ZOFRAN) 4 MG tablet 04/21/2025 ActiveStart: 03-25-2025 End: 37-54-5828jatd 1 tablet by mouth every eight hours for nauseaondansetron ODT (Zofran-ODT) 4 MG disintegrating tablet Indications: Nausea and vomiting, unspecified vomiting type Take 1 tablet (4 mg) by mouth every 8 (eight) hours if needed for nausea or vomiting for up to 7 days 20 tablet 03/25/2025 04/01/2025 ActiveStart: 03-17-2025 End: 07-21-19861 mg, Intravenous, Every 15 min PRN, nausea, vomiting, Starting on 03/17/25 at 1601, For 2 doses, PACU (only), Do not give more than 2 doses. Administer first as needed for nausea/vomiting, or as directed by anesthesia Start: 03-14-2025 End: 54 mg, Intravenous, Once, On Mon03/14/25 at 1445, For 1 doseStart: 03-14-2025 End: 85-57-7277kfmk 4 mg intravenously every six hours as needed for nausea and vomiting4 mg, Intravenous, Every 6 hours PRN, nausea, vomiting, Starting on Mon03/14/25 at 1441Start: 06-06-2023 End: 47-09-1628rsnhxzovxlb (ZOFRAN) 4 MG tablet 06/06/2023 03/14/2025 Discontinued (Therapy completed)Start: 01-18-2022 End: 77-99-3658rjmbvafavrx (ZOFRAN) injection 4 mgStart: 10-08-2018 End: 53-05-5701plrqfytjudd (ZOFRAN) injection 4 mgStart: 09-13-2018 End: 11-63-7323qaig 1 tablet by mouth every eight hours as neededondansetron (ZOFRAN) 4 MG tablet Take 1 (one) tablet (4 mg total) by mouth every 8 (eight) hours asneeded for nausea . 20 tablet 0 09/13/2018 03/13/2019 Discontinued (Therapy completed)polyethylene glycol 3350 07626 mg powder for oral solution (20 sources)Osmotic LaxativeStart: 05-08-2025 End: 63-76-5746cvwg 17 g by mouth in the morningpolyethylene glycol, PEG, 3350 (Miralax) 17 g packet Take 17 g by mouth in the morning. 05/08/2025 ActiveStart: 09-04-2011 End: 58-01-3481rhrujyceoiwk glycol (MIRALAX) 17 gram powder Take 17 (seventeen) g by mouth daily . 09/04/2011 ActiveStart: 09-04-2011 End: g, Oral, 2 TIMES DAILY, First dose on Mon05/11/25 at 0930, Until Discontinuedpovidone-iodine 100 mg/ml topical solution (2 sources)AntisepticStart: 09-13-2018 End: 36-57-8844geagttca-iodine (BETADINE) 10 % external solution Apply topically as needed for wound care Apply daily to foot . 480 mL 0 09/13/2018 09/20/2018 ActivepredniSONE (20 sources)Start: 05-14-2025 End: 40-41-5999uwskqvESFB (DELTASONE) tablet 30 mgStart: 10-69-2965xluzvjYCXA (Deltasone) 10 MG tablet 05/13/2025 ActiveStart: 05-13-2025 End: 99-74-0882vfya 3 tablets by mouth once daily, then take 2 tablets by mouth once daily, then take 1 tablet by mouth once dailypredniSONE 10 MG tablet Take 3 tablets by mouth daily for 4 days, THEN 2 tablets daily for 4 days, THEN 1 tablet daily for 4 days. 24 tablet 05/13/2025 05/25/2025 ActiveStart: 05-08-2025 take 3 tablets by mouth once dailyStart: 05-02-2025 End: 16-94-1818scyw 2 tablets by mouth once dailyPrednisone 20 mg tablet Discontinued 40 MG PO Daily May 02, 2025 12:00am May 08, 2025 7:16pmStart: 60-43-4253bkxxflMPBL (Deltasone) 20 MG tablet 04/30/2025 Active Start: 05-10-2017 End: 50-31-2542bbnk 2 mg by mouth once dailyPrednisone 10 mg Tablet Discontinued 2 MG PO Daily May 10, 2017 12:00am April 25, 2022 11:27amStart: 05-10-2017 End: 57-38-5500hrtf 2 mg by mouth once dailyPrednisone Discontinued 2 MG PO Daily May 09, 2017 11:00pm April 25, 2022 10:27am End: 87-66-6507qjinjgSBJS (DELTASONE) 10 MG tabletrivaroxaban 2.5 mg oral tablet (20 sources)Factor Xa InhibitorStart: 04-25-2022 End: 05-38-1219oqab 1 tablet by mouth once dailyRivaroxaban (Xarelto) 2.5 mg tablet Active 2.5 MG PO Daily April 25, 2022 12:00amStart: 11-27-2019 End: 23-90-5391rulzatfvzav (Xarelto) 2.5 MG tablet Indications: Paroxysmal atrial fibrillation (HCC) TAKE 1 TABLETTWICE DAILY 180 tablet 3 04/09/2025 ActiveStart: 40-60-3931Qimbeyj Start Date: 07/03/19 Status: OrderedStart: 08-09-2018 End: 67-03-5857abrf 2 tablets by mouth once dailyXARELTO 15 mg Tab take 2 tablets by mouth once daily for 3 weeks 0 08/09/2018 09/13/2018 Discontinued Rivaroxaban 20 MG tablet Take 2.5 mg by mouth 2 times daily. Start in 22 days after the 15mg dose is completed 0 Active End: 43-43-7109zbgutqzepwc (XARELTO) 20 mg Tab Take 20 mg by mouth . 0 01/19/2022 Discontinuedsulfamethoxazole 400 mg / trimethoprim 80 mg oral tablet (20 sources)Dihydrofolate Reductase Inhibitor Antibacterial, Sulfonamide AntimicrobialStart: 04-16-2025 End: 25-54-0399gqpofyjgyiexfaqa-trimethoprim (BACTRIM,SEPTRA) 400-80 mg per tablet 04/16/2025 ActiveStart: 04-08-2025 End: 84-70-6278tglv 1 tablet by mouth once in the morning, then take 1 tablet by mouth once at bedtimesulfamethoxazole-trimethoprim (Bactrim DS) 800-160 MG per tablet Indications: Ischemic toe ulcer, right, with 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) Take 1 tablet by mouth in the morning and 1 tablet before bedtime. Do all this for 7 days. 14 tablet 04/08/2025 04/15/2025 ActiveStart: 01-29-2022 End: 74-27-6297cxvo 1 tablet by mouth twice dailysulfamethoxazole-trimethoprim (BACTRIM DS,SEPTRA DS) 800-160 mg per tablet Take 1 (one) tablet by mouth 2 (two) times a day for 3 days Start: 01/29/22. 6 tablet 0 01/29/2022 01/21/2022 Discontinued (Reorder)Start: 01-18-2022 End: 90-70-7755lgyo 1 tablet by mouth twice dailysulfamethoxazole-trimethoprim (BACTRIM DS,SEPTRA DS) 800-160 mg per tablet Take 1 tablet by mouth 2(two) times a day . 0 01/18/2022 04/15/2022 Discontinuedtake 1 tablet by mouth twice daily Sulfamethoxazole-trimethoprim 400-80 MG per tablet Take 1 tablet by mouth 2 times daily. Activetamsulosin hydrochloride 0.4 mg oral capsule (20 sources)alpha-Adrenergic BlockerStart: 50-55-9429qxas 1 capsule by mouth once dailyTamsulosin HCl 0.4 MG capsule Take 1 capsule by mouth daily. 05/14/2025 ActiveStart: 33-60-5290bpuc 1 capsule by mouth once dailyTamsulosin HCl 0.4 MG capsule Take 1 capsule by mouth daily. 05/14/2025 ActiveStart: 45-97-4220kkzv 1 capsule by mouth once dailyTamsulosin HCl 0.4 MG capsule Take 1 capsule by mouth daily. 05/14/2025Start: 03-31-2025 End: 08-85-7771qmkt 1 capsule by mouth every twenty-four hours in the morning tamsulosin (Flomax) 0.4 MG 24 hr capsule Indications: History of prostate cancer , Urinary hesitancy Take 1 capsule (0.4 mg) by mouth in the morning and 1 capsule (0.4 mg) before bedtime. 200 wakbzko0403/31/2025 07/09/2025 ActiveStart: 01-09-2025 End: 82-67-4929imys 1 capsule by mouth once daily0.4 mg, Oral, DAILY, First dose on Mon05/09/25 at 0900, Until Discontinued, If giving via enteral tube: May add capsule contents to apple juice or applesauce. Do not crush or chew the pellets and coating.take 1 capsule by mouth twice dailyTamsulosin HCl 0.4 MG capsule Take 1 capsule by mouth 2 times daily. Activezolpidem tartrate 10 mg oral tablet (20 sources)gamma-Aminobutyric Acid-ergic AgonistStart: 03-14-2025 End: 52-99-8487nczc 10 mg by mouth once daily10 mg, Oral, Nightly, First dose on Mon03/14/25 at 2200Start: 09-30-2019 End: 06-06-3102spgswbwm (Ambien) 10 MG tablet Indications: Primary insomnia Take 1 tablet (10 mg) by mouth as needed at bedtime for sleep 30 tablet 5 02/13/2025 ActiveStart: 05-12-2017 End: 63-39-9153nkcb 5 mg by mouth at bedtime as needed for sleepZolpidem 10 mg Tablet Discontinued 5 MG PO Bedtime as needed for Sleep May 12, 2017 12:00amFebruary 2023 9:54amStart: 05-12-2017 End: 82-27-2332tpul 5 mg by mouth at bedtimeZolpidem Discontinued 5 MG PO Bedtime May 11, 2017 11:00pm October 12, 2023 8:54amtake 2 tablets by mouth at bedtime as needed for sleepzolpidem 5 MG tablet Take 2 tablets by mouth At bedtime as needed for Sleep. 0 Active Completed/Discontinued Medications MedicationDrug Class(es)DatesSig (Normalized)Sig (Original)acetaminophen 325 mg oral tablet (19 sources)Start: 05-09-2025 End: 43-40-4245tjtv 1 tablet by mouth every six hours as pmzjry283 mg, Oral, EVERY 6 HOURS NEEDED, Starting on Mon05/09/25 at 0221, Until Mon05/13/25 at 1552, Mild Pain, Oral temp > 100.4 F, Headaches, Alternate with ibuprofen if ordered, Maximum dose of acetaminophen is 4000 mg from all sources in 24 hours or 2000 mg from all sources in patients with cirrhosis in 24 hours.Start: 03-14-2025 End: 49-75-2311zzzh 650 mg by mouth every four ibvpj883 mg, Oral, Every 4 hours while awake, First dose on Mon03/14/25 at 1500Start: 04-15-2022 End: 67-43-3157kpjj 1 tablet by mouth every four hours as needed for pain and lpugoqzh637 mg, Oral, Every 4 hours PRN, mild pain, fever 100.4 F or greater, headaches, Starting on Mon04/15/22 at 0101Start: 01-19-2022 End: 00-83-4344nyod 1 tablet by mouth every four hours as needed for pain and headacheacetaminophen (TYLENOL) tablet 650 mgStart: 01-18-2022 End: 05-57-3515omhagxatnhivg (TYLENOL) tablet 975 mgStart: 07-15-2021 End: 12-94-9579ikbr 2 tablets by mouth every four hours as neededacetaminophen 325 MG tablet Take 2 tablets by mouth every 4 hours as needed for Mild Pain. 50 tablet 1 07/15/2021 05/09/2025 Discontinued (Medication Reconciliation (suppress cancel msg))Start: 10-09-2018 End: 93-78-7019iuaw 1 tablet by mouth every six hours as neededacetaminophen (TYLENOL) tablet 650 mgStart: 09-05-2018 End: 04-78-0112glhf 1 tablet by mouth every four hours as mg, Oral, Every 4 hours PRN, mild pain, fever 100.4 F or greater, headaches, Starting Mon09/05/18 at 1603alprostadil 0.5 mg urethral suppository (1 source)Prostaglandin Analog, Prostaglandin E1 Agonist End: 69-61-2455ijmoudahjyV ([place]) 500 mcg pelletaluminum hydroxide 40 mg/ml / magnesium hydroxide 40 mg/ml / simethicone 4 mg/ml oral suspension (3 sources)Start: 03-14-2025 End: 88-24-2971fvyl 30 mL by mouth every four hours as neededStart: 11-03-2022 End: 05-25-1955ezcl 30 mL by mouth every four hours as mL, Oral, Every 4 hours PRN, indigestion, Starting on Mon11/03/22 at 2228Start: 10-10-2018 End: 26-62-3255riwdrhnk-magnesium hydroxide-simethicone (MAALOX PLUS) 200-200-20 mg/5 mL suspension 30 mLaspirin 81 mg chewable tablet (20 sources)Platelet Aggregation Inhibitor, Nonsteroidal Anti-inflammatory Drug Start: 05-09-2025 End: 85-17-7177hnfq 81 mg by mouth once daily81 mg, Oral, DAILY, First dose on Mon05/09/25 at 0900, Until DiscontinuedStart: 11-04-2022 End: 63-95-2867uavz 81 mg by mouth once daily81 mg, Oral, Daily, First dose on Mon11/04/22 at 0900Start: 01-19-2022 End: 65-91-8478iery 81 mg by mouth once daily81 mg, Oral, Daily, First dose on Mon01/19/22 at 0900Start: 60-77-0388sblz 1 capsule by mouth once dailyaspirin 81 mg cap Take 1 (one) capsule (81 mg total) by mouth daily . 11/27/2019 Active Start: 28-69-4326eznxhxq Start Date: 07/03/19 Status: OrderedStart: 09-05-2018 End: 01-40-9110ccpv 162 mg by mouth once wjypc146 mg, Oral, Daily, First dose on Mon09/05/18 at 1700 DO NOT CRUSH OR CHEW.Start: 09-05-2018 End: 32-39-5891utopvsp chewable tablet 81 mgStart: 05-10-2017 End: 28-05-7040iexg 1 tablet by mouth once dailyBaby Aspirin Activeatorvastatin 40 mg oral tablet (20 sources)HMG-CoA Reductase InhibitorStart: 05-09-2025 End: 97-04-6006woyz 80 mg by mouth once daily80 mg, Oral, DAILY, First dose on Mon05/09/25 at 0900, Until DiscontinuedStart: 03-14-2025 End: 18-33-0708xoya 80 mg by mouth once daily80 mg, Oral, Nightly, First dose (after last modification) on Mon03/14/25 at 2130Start: 07-09-2024 End: 18-01-0737wnkylrkqwysy (Lipitor) 80 MG tablet 07/09/2024 ActiveStart: 11-08-2023 End: 89-22-3350tnpaoksxmxsa (Lipitor) 40 MG tablet Indications: Hypercholesteremia (CMS/HCC) TAKE 1 TABLET EVERY DAY 100 tablet 3 11/08/2023 08/12/2024 Discontinued (Other)Start: 11-04-2022 End: 33-04-4803fodr 40 mg by mouth once daily40 mg, Oral, Nightly, First dose on Mon11/04/22 at 2100Start: 04-15-2022 End: 58-36-8421lqia 40 mg by mouth once daily40 mg, Oral, Daily, First dose on Mon04/15/22 at 0900Start: 01-19-2022 End: 11-36-0345zkvi 40 mg by mouth once daily40 mg, Oral, Daily, First dose on Mon01/19/22 at 0900Start: 00-23-2739hxsgaqhdmrcu Start Date: 07/03/19 Status: OrderedStart: 10-05-2018 End: 00-13-0824vrla 40 mg by mouth once daily40 mg, Oral, Daily, First dose on Mon10/05/18 at 0900Start: 09-05-2018 End: 39-58-1806mhnq 40 mg by mouth once daily40 mg, Oral, Nightly, First dose on Mon09/05/18 at 2100Start: 05-10-2017 End: 96-24-0484ogmu 2 tablets by mouth once dailyAtorvastatin 20 mg Tablet Discontinued 40 MG PO Daily May 10, 2017 12:00am May 02, 2025 4:12pmStart: 00-78-4004jlih 40 mg by mouth once dailyAtorvastatin Active 40 MG PO Daily May 09, 2017 11:00pmStart: 99-67-8187drsl 20 mg by mouth once dailyAtorvastatin Active 20 MG PO Daily May 10, 2017 12:00am End: 92-47-3182cqtk 1 tablet by mouth twice daily, then take 0.5 tablet by mouth twice dailyatorvastatin 40 MG Tab tablet Take 1 tablet by mouth 2 times daily. Takes 1/2 tab bid 05/09/2025 Discontinued End: 09-77-4826aljlbrsexhgx (LIPITOR) 80 MG tablet Take 0.5 (one-half) tablet (40 mg total) by mouth 2 (two) timesa day 1/2 tab . 03/21/2025 Discontinued (Stop Taking at Discharge)atorvastatin (LIPITOR) 40 MG tablet Take 0.5 (one- half) tablet (20 mg total) by mouth 2 (two) timesa day 1/2 tab . Active1 ml atropine sulfate 1 mg/ml injection (1 source)Anticholinergic, Cholinergic Muscarinic AntagonistStart: 09-05-2018 End: 09-13-20181 mg, Intravenous, As needed, SINGLE DOSE for bradycardia (HR less than 50), complete heart block, or escape rhythms with symptoms of hemodynamic compromise, Starting Mon09/05/18 at 1603 [] NOTIFY PHYSICIAN, and request patient transfer to cardiac unit if not already there. &nb sp;[] If patient has history of glaucoma, notify physician before administering Atropine, if condition allows.bisacodyl 10 mg rectal suppository (13 sources)Stimulant LaxativeStart: 10-11-2018 End: 10-14-0018yzzmxvrtr (DULCOLAX) suppository 10 mgStart: 09-04-2018 End: 81-52-3964iujc 5 mg by mouth once daily as needed for constipation5 mg, Oral, Daily PRN, constipation, Starting Mon09/04/18 at 2247 DO NOT CRUSH OR CHEW. End: 14-54-9817rzol 1 tablet by mouth twice daily as needed for constipation bisacodyl (DULCOLAX) 5 mg EC tablet Take 5 mg by mouth 2 (two) times a day as needed for constipation . 0 03/13/2019 Discontinued (Therapy completed) budesonide-formoteroL (SYMBICORT) 160-4.5 mcg/actuation inhaler 2 puff (1 source)Start: 11-03-2022 End: 00-73-9899njtobrruln-formoteroL (SYMBICORT) 160-4.5 mcg/actuation inhaler 2 puffcalcium carbonate 500 mg chewable tablet (1 source)Start: 03-14-2025 End: 72-12-4656odyv 500 mg by mouth once daily as needed for gastroesophageal reflux ngeqnnx422 mg, Oral, Daily PRN, indigestion, heartburn, Starting on Mon03/14/25 at 6, Give with Foodcalcium chloride 0.001 meq/ml / glucose 50 mg/ml / potassium chloride 0.004 meq/ml / sodium chloride 0.103 meq/ml / sodium lactate 0.028 meq/ml injectable solution (1 source)Start: 09-07-2018 End: 92-51-4175jbtfwohi 5 % in lactated ringers infusioncalcium chloride 0.0014 meq/ml / potassium chloride 0.004 meq/ml / sodium chloride 0.103 meq/ml / sodium lactate 0.028 meq/ml injectable solution (1 source)Start: 09-07-2018 End: 55-92-1961niuiohla Ringers infusioncefdinir 300 mg oral capsule (1 source)Cephalosporin Antibacterial End: 37-24-3271tdjhghhs (OMNICEF) 300 MG capsulecefepime 2000 mg injection (4 sources)Cephalosporin AntibacterialStart: 05-09-2025 End: 45-49-6094sfou 2 g intravenously every eight hours2 g, Intravenous, Administer over 4 Hours, EVERY 8 HOURS NON-STANDARD, First dose on Mon05/09/25 [id number], Until Discontinued, Infuse STAT doses over 30 minutes. Infuse other doses over 4 hours., On hold since Mon05/12/2025 at 0808 until manually unheld Start: 76-89-5894wgls 2 g intravenously every eight hoursStart: 11-04-2022 End: 88-52-5415nzux 2000 mg intravenously every twelve hourscefePIMe-dextrose (MAXIPIME) 2 gram/50 mL IVPB 2,000 mgcefTRIAXone 2000 mg injection (2 sources)Cephalosporin AntibacterialStart: 11-03-2022 End: 10-16-9500yygZXXZWssv (ROCEPHIN) IVPB 2 g (premix)Start: 01-18-2022 End: 83-10-8144uckFFTMMfkx (ROCEPHIN) IVPB 2 g (premix)celecoxib 200 mg oral capsule (11 sources)Nonsteroidal Anti-inflammatory DrugStart: 11-24-2021 End: 00-67-3867hezf 1 capsule by mouth twice dailycelecoxib 200 MG capsule Take 1 capsule by mouth 2 times daily. 60 capsule 11/24/2021 05/09/2025 Discontinued cephalexin 500 mg oral capsule (6 sources)Cephalosporin AntibacterialStart: 01-18-2022 End: 55-98-1378nqpr 1 capsule by mouth three times dailycephALEXin (KEFLEX) 500 MG capsule Take 500 mg by mouth 3 (three) times a day . 0 01/18/2022 04/15/2022 DiscontinuedStart: 09-29-2018 End: 02-46-5585zikl 1 capsule by mouth three times dailycephALEXin (KEFLEX) 500 MG capsule Take 500 mg by mouth 3 (three) times a day (for 7 days) . 0 09/2910/12/2018 Discontinuedclopidogrel 75 mg oral tablet (20 sources)P2Y12 Platelet InhibitorStart: 03-14-2025 End: 15-50-7933Uxgvfutq on Mon03/14/25 at 1702, For 1 dose, HERRERA BACK: paulie overrideStart: 09-05-2018 End: 11-66-8049vgms 1 tablet by mouth once dailyclopidogrel (PLAVIX) 75 mg tablet Take 1 (one) tablet (75 mg total) by mouth daily . 30 tablet 1 09/13/2018 10/13/2018 ActiveStart: 05-10-2017 End: 87-36-4840ycqv 1 tablet by mouth once dailyClopidogrel (Plavix) 75 mg Tablet Discontinued 75 MG PO Daily May 10, 2017 12:00am May 12, 2017 11:03amcodeine phosphate 2 mg/ml / guaiFENesin 20 mg/ml oral solution (3 sources)Opioid AgonistStart: 05-09-2025 End: 25-53-3960zncw 10 mL by mouth every four hours as hdiism87 mL, Oral, EVERY 4 HOURS NEEDED, Starting on Mon05/09/25 at 1141, Until Mon05/13/25 at 1552, Congestion, CoughStart: 75-95-2749lyfk 1 mL by mouth every six hours cyclobenzaprine hydrochloride 10 mg oral tablet (1 source)Muscle RelaxantStart: 03-17-2025 End: 21-54-1307cfzv 10 mg by mouth every eight hours10 mg, Oral, Every 8 hours scheduled, First dose on Mon03/17/25 at 2200dexamethasone 1 mg/ml / neomycin 3.5 mg/ml / polymyxin b 46230 unt/ml ophthalmic suspension (1 source)Aminoglycoside Antibacterial, Polymyxin-class Antibacterial, Corticosteroid End: 14-47-2882bguqwlch-polymyxin-dexamethasone (MAXITROL) 3.5mg/mL-10,000 unit/mL-0.1 % ophthalmic suspensiondocusate sodium 100 mg oral capsule (20 sources)Start: 07-15-2021 End: 30-79-2053dbvv 1 capsule by mouth twice dailydocusate 100 MG capsule Take 1 capsule by mouth 2 times daily. 60 capsule 07/15/2021 05/09/2025 Discontinued Start: 09-04-2011 End: 36-43-8057dmgywqfo sodium (COLACE) 100 MG capsule Take 100 mg by mouth . 0 09/04/2011 03/13/2019 Discontinued(Therapy completed)docusate sodium 50 mg / sennosides, jail 8.6 mg oral tablet (13 sources)Start: 03-14-2025 End: 99-41-6893mege 1 tablet by mouth once daily as needed for constipation1 tablet, Oral, Daily PRN, constipation, Starting on Mon03/14/25 at 2025, Use as first line agent for constipation. Do Not Crush or Chew if administering orally due to bitter taste. May be crushed ifgiven via tube.Start: 10-06-2018 End: 10-19-9274obvic-docusate (SENNA-S) 8.6-50 mg per tablet 1 tabletStart: 09-13-2018 End: 73-96-1214xaza 1 tablet by mouth twice dailysenna-docusate (SENNA-S) 8.6-50 mg Take 1 (one) tablet by mouth 2 (two) times a day . 60 tablet 0 10/12/2018 10/12/2018 DiscontinuedStart: 09-11-2018 End: 39-15-9522ubabe-docusate (SENNA-S) 8.6-50 mg per tablet 2 tabletStart: 09-04-2018 End: 88-57-7052bson 1 tablet by mouth twice daily1 tablet, Oral, 2 times daily, First dose on Mon09/04/18 at 2300 NOT for abdominal surgery patients.& amp;nbsp; Hold for loose stools. Do Not Crush or Chew if administering orally dueto bitter taste. May be crushed if given via tube.0.4 ml enoxaparin sodium 100 mg/ml prefilled syringe (13 sources)Low Molecular Weight HeparinStart: 03-15-2025 End: 86-07-0728alrvar 40 mg by subcutaneous injection once daily40 mg, Subcutaneous, Daily, First dose on Mon03/15/25 at 0800, Administer in abdomen unless otherwise directed by prescriber. Notify physician if patient refuses., Indication: VTE ProphylaxisStart: 01-19-2022 End: 64-86-0086mkjtvmlyzb (LOVENOX) syringe 40 mgStart: 10-12-2018 End: 85-66-0028jxookn 0.4 mL by subcutaneous injection once dailyenoxaparin (LOVENOX) 40 mg/0.4 mL Syrg Inject 0.4 mL (40 mg total) under the skin daily . 12 mL 0 10/12/2018 11/11/2018 ActiveStart: 10-11-2018 End: 75-25-0132wdywwgicdm (LOVENOX) syringe 40 mgStart: 10-09-2018 End: 86-62-7469qkbzqgzvas (LOVENOX) syringe 40 mgStart: 10-05-2018 End: 67-47-1276gcykunnwby (LOVENOX) syringe 40 mg1 ml fentaNYL 0.05 mg/ml injection (3 sources)Opioid AgonistStart: 03-17-2025 End: 51-66-640190 mcg, Intravenous, Every 5 min PRN, Pain, Starting on Mon03/17/25 at 1601, For 4 doses, PACU (only), [] Do not give more than 100 mcg while in PACU.Start: 04-14-2022 End: 17-08-5499accymMNR (SUBLIMAZE) injection 50 mcgStart: 09-07-2018 End: 11-00-249887 mcg, Intravenous, Every 5 min PRN, moderate to severe pain, Starting Mon09/07/18 at 1507, For 4 doses, PACU (only)fluticasone propionate 0.05 mg/actuat metered dose nasal spray (20 sources)CorticosteroidStart: 03-11-2025 End: 64-56-8324pheg 1 spray(s) nasal route once daily as needed for rhinitis1 spray, Nasal, DAILY NEEDED, Starting on Mon05/09/25 at 2303, Until Mon05/13/25 at 1552, Allergies, Rhinitis, Dose is for each nostril.Start: 05-21-2024 End: 40-94-5446mhnn 1 spray(s) nasal route once dailyfluticasone (Flonase) 50 MCG/ACT nasal spray Indications: Seasonal allergic rhinitis due to pollen A dminister 1 spray into each nostril Daily Shake gently. Before first use, prime pump. After use, clean tip and replace cap. 48 g 3 11/04/2024 ActiveStart: 02-20-2024 End: 69-50-0353bgjt 1 spray(s) nasal route once daily in the morningfluticasone (Flonase) 50 MCG/ACT nasal spray Indications: Sinusitis, unspecified chronicity, unspecified location USE 1 SPRAY IN EACH NOSTRIL EVERY MORNING 32 g 3 02/20/2024 05/21/2024 Discontinued (Reorder)Start: 10-12-2018 End: 43-87-6781kgbuleccpqx (FLONASE) 50 mcg/actuation nasal spray 2 (two) sprays by Each Nare route daily . 16 g 12 10/12/2018 ActiveStart: 10-12-2018 End: 21-82-7533ohdpbomuofo (FLONASE) 50 mcg/actuation nasal spray 2 spray Fluticasone Propionate 50 MCG/ACT Nasal for 90 Days ActiveFluticasone Propionate 50 MCG/ACT Nasal for 90 Days Trjsjm24 actuat fluticasone furoate 0.1 mg/actuat / umeclidinium 0.0625 mg/actuat / vilanterol 0.025 mg/actuat dry powder inhaler (5 sources)Anticholinergic, Corticosteroid, beta2-Adrenergic AgonistStart: 10-27-2022 End: 05-51-9773zxqzcmyrnee-umeclidin-vilanter (Trelegy Ellipta) 100-62.5-25 mcg DsDv 1 puff every night at bedtime. 0 10/27/2022 08/09/2023 Discontinued (Discontinued by another clinician)gabapentin 100 mg oral capsule (20 sources)Anti-epileptic AgentStart: 01-19-2022 End: 32-16-7104jkyj 100 mg by mouth every eight mg, Oral, Every 8 hours scheduled, First dose on Mon04/15/22 at 0200Start: 48-75-4310fpof 1 capsule by mouth three times dailygabapentin 300 mg Cap 300 mg = 1 cap(s), Oral, TID, # 270 cap(s), Refills(s) 0 Start Date: 10/05/21 Status: OrderedStart: 10-12-2018 End: 43-37-5159kxbcqgvlwm (NEURONTIN) 100 MG capsule Take 2 (two) capsules (200 mg total) by mouth every 8 (eight)hours (Days supply per fill: 30) . 180 capsule 0 10/12/2018 03/13/2019 Discontinued (Therapy completed)Start: 10-12-2018 End: 71-96-5349etpokzeepm (NEURONTIN) capsule 200 mgStart: 09-07-2018 End: 63-22-0591merz 1 capsule by mouth every eight hoursgabapentin (NEURONTIN) 400 MG capsule Take 1 (one) capsule (400 mg total) by mouth every 8 (eight) h ours . 90 capsule 1 09/13/2018 10/13/2018 ActiveStart: 09-04-2018 End: 01-54-3494fftk 300 mg by mouth every twelve zfiwq302 mg, Oral, Every 12 hours scheduled, First dose on Mon09/04/18 at 2350Start: 07-12-2018 End: 26-09-8009tski 3 capsules by mouth three times dailygabapentin (NEURONTIN) 100 MG capsule Take 300 mg by mouth 3 (three) times a day . 0 07/12/201808/28 Discontinued End: 32-02-6992macv 1 capsule by mouth three times dailygabapentin (NEURONTIN) 100 MG capsule Take 1 capsule 3 times a day by oral route for 30 days. 0 07/28 Discontinued (Discontinued by another clinician)Gabapentin Active gabapentin (NEURONTIN) 100 MG capsule Take 100 mg by mouth every 8 (eight) hours (Days supply per fill: {DAYS SUPPLY:18902}) . 0 Sgpuvx841 ml heparin sodium, porcine 100 unt/ml injection (4 sources)Unfractionated Heparin, Anti-coagulantStart: 03-15-2025 End: -70 Units/kg/hr 110.2 kg (0-77.14 mL/hr, rounded to 0-77.1 mL/hr), Intravenous, Continuous, Starting on 03/15/25 at 1345, Choose one of the following protocols: Cardiac / Arterial, Bolus options:Protocol WITHOUT initial bolus only, For Downtime Calculator, use: Heparin Infusion Standard Start: 09-11-2018 End: 15-13-4127bdaixsh (porcine) injection 5,000 UnitsStart: 09-04-2018 End: 95-89-5891ffpwnjp (porcine) 25,000 unit/250 mL(100 unit/mL) in D5W infusion heparin bolus from bag 0-5,000 Units (3 sources)Start: 03-15-2025 End: 85-49-95152-5,000 Units, Intravenous, Continuous PRN, IF the MAR calculator for heparin infusion specifies a bolus from bag is to be administered, Starting on 03/15/25 at 1248, Choose one of the following protocols: Cardiac / Arterial, Bolus options: Protocol WITHOUT initial bolus only, For Downtime Calculator, use: Heparin Infusion Standard Start: 09-06-2018 End: 11-76-0032izqutrp bolus from bag 0-5,000 UnitsStart: 09-04-2018 End: 05-14-9057wmbjnpb bolus from bag 0-5,000 Units1 ml hydrALAZINE hydrochloride 20 mg/ml injection (2 sources)Arteriolar VasodilatorStart: 03-17-2025 End: 55 mg, Intravenous, Every 15 min PRN, SBP greater than 160 or DBP greater than 90, Starting on Mon03/17/25 at 1601, For 4 doses, PACU (only), Do not give more than 20 mg total. Hold for HR greater than 100. Administer if labetalol or metoprolol ineffective at maximum dose or not ordered.Start: 10-11-2018 End: 08-88-3250qtxw 5 mg intravenous route every four hours as neededhydrALAZINE (APRESOLINE) injection 5 mg0.5 ml HYDROmorphone hydrochloride 1 mg/ml prefilled syringe (3 sources)Opioid AgonistStart: 03-17-2025 End: 78-92-3879oihj 1 mg intravenously every three hours as needed1 mg, Intravenous, Every 3 hours PRN, breakthru pain not controlled by PO, Starting on Mon03/17/25 at 1024Start: 03-14-2025 End: 54-55-4983xcnq 0.5 mg intravenously every three hours as needed0.5 mg, Intravenous, Every 3 hours PRN, breakthru pain not controlled by PO, Starting on Mon03/14/25 at 1413Start: 03-14-2025 End: 50.5 mg, Intravenous, Once, On Mon03/14/25 at 1230, For 1 dose HYDROmorphone (DILAUDID) 0.5 mg/mL injection 0.25 mg (1 source)Start: 10-08-2018 End: 10-08-20180.25 mg, Intravenous, Every 5 min PRN, moderate to severe pain, Starting Mon10/08/18 at 0835, For 6doses, PACU (only) [] Give if fentanyl not effective or not ordered. [] Do not give more than 1.5 mg total. HYDROmorphone (DILAUDID) 0.5 mg/mL injection 0.25-0.5 mg (1 source)Start: 09-04-2018 End: 29-46-6597jyqi 0.25-0.5 mg intravenous route every three hours as needed 0.25-0.5 mg, Intravenous, Every 3 hours PRN (may repeat), breakthrough pain, Starting 09/04/18 [id number] [] Initiate with 0.25 mg IV every [...] pain or if unable to tolerate oral route.HYDROmorphone (DILAUDID) 0.5 mg/mL injection 0.5 mg (2 sources)Start: 09-08-2018 End: 09-08-20180.5 mg, Intravenous, Every 10 min PRN, moderate to severe pain, Starting 09/08/18 at 0051, For 6doses, PACU (only) [] Give if fentanyl not effective or not ordered. [] Do not give more than 3 mg total.Start: 09-04-2018 End: 97-51-9723WJHYEmwgsafba (DILAUDID) 0.5 mg/mL injection 0.5 mgHYDROmorphone (DILAUDID) 0.5 mg/mL injection 0.5-1.5 mg (1 source)Start: 09-05-2018 End: 70-97-4145DTMZFryajxzkr (DILAUDID) 0.5 mg/mL injection 0.5-1.5 mg HYDROmorphone (DILAUDID) 0.5 mg/mL injection 1 mg (1 source)Start: 09-05-2018 End: 27-66-9793IVFTIrtbxjdlp (DILAUDID) 0.5 mg/mL injection 1 mgHYDROmorphone (DILAUDID) injection 0.5 mg (1 source)Start: 03-17-2025 End: 50.5 mg, Intravenous, Every 10 min PRN, Pain, Starting on 03/17/25 at 1601, For 6 doses, PACU (only), Give if fentanyl not effective or not ordered. Do not give more than 3 mg total.HYDROmorphone in 0.9 % NaCl (DILAUDID) 15 mg/30 mL (0.5 mg/mL) CHIPS SCREEN TENDER (1 source)Start: 09-06-2018 End: 37-27-3425GOHCUrmxxibuq in 0.9 % NaCl (DILAUDID) 15 mg/30 mL (0.5 mg/mL) PCAhydrOXYzine hydrochloride 25 mg oral tablet (2 sources)AntihistamineStart: 05-10-2025 End: 04-55-3754fnlz 1 tablet by mouth every six hours as sqoycu38 mg, Oral, EVERY 6 HOURS NEEDED, Starting on 05/10/25 at 1005, Until 05/13/25 at 1552, AnxietyiopamidoL (ISOVUE-370) 370 mg iodine /mL (76 %) injection 75 mL (1 source)Start: 11-03-2022 End: 28-47-8210ybaodrnaK (ISOVUE-370) 370 mg iodine /mL (76 %) injection 75 mL iopamidoL (ISOVUE-370) 76 % injection 125 mL (3 sources)Start: 04-14-2022 End: 57-46-5467ghzghpyeW (ISOVUE-370) 76 % injection 125 mLStart: 01-19-2022 End: 74-16-5662juocxwlkX (ISOVUE-370) 76 % injection 125 mLStart: 10-21-2019 End: 46-53-3176adpnuvshK (ISOVUE-370) 76 % injection 125 mLiopamidoL (ISOVUE- 370) 76 % injection 75 mL (1 source)Start: 04-14-2022 End: 02-49-5479txfxbakoC (ISOVUE-370) 76 % injection 75 mL1 ml ketorolac tromethamine 30 mg/ml injection (2 sources)Nonsteroidal Anti-inflammatory Drug, Cyclooxygenase InhibitorStart: 10-09-2018 End: 70-15-9843icai 15 mg intravenous route every six hoursketorolac (TORADOL) injection 15 mg End: 86-62-6829vdbudylzz (ACULAR) 0.5 % ophthalmic solution4 ml labetalol hydrochloride 5 mg/ml cartridge (1 source)beta-Adrenergic BlockerStart: 03-17-2025 End: mg, Intravenous, Every 5 min PRN, SBP greater than 160 or DBP greater than 90, Starting on Mon03/17/25 at 1601, For 4 doses, PACU (only), Do not give more than 20 mg total. Hold for HR less than 50.ammonium lactate 120 mg/ml topical lotion (13 sources)Start: 12-28-2021 End: 51-42-0559uclzjfdj lactate (LAC-HYDRIN) 12 % lotion Apply topically 2 (two) times a day . 400 g 2 12/28/2021 11/08/2022 Discontinued (Stop Taking at Discharge)lactobacillus combo no.11 (PROBIOTIC) 15 billion cell CpSP (8 sources) End: 33-57-8255rbzhmaawaywst combo no.11 (PROBIOTIC) 15 billion cell CpSP Take by mouth . 0 03/13/2019 Discontinued (Therapy completed)lactobacillus combo no.11 (PROBIOTIC) 15 billion cell CpSP Take by mouth . 0 Activelactulose 667 mg/ml oral solution (2 sources)Osmotic LaxativeStart: 05-11-2025 End: 92-73-241952 g, Oral, 2 TIMES DAILY NEEDED, Starting on Mon05/11/25 at 0916, Until Mon05/13/25 at 1552, Constipation 1st Linelidocaine hydrochloride 0.02 mg/mg topical gel (1 source)Antiarrhythmic, Amide Local AnestheticStart: 03-17-2025 End: Application, Intra-urethral, As needed, For insertion of Urinary Catheter, Starting on Mon03/17/25 at 2111, For 1 doselosartan potassium 50 mg oral tablet (20 sources)Angiotensin 2 Receptor BlockerStart: 05-09-2025 End: 43-10-1053yajj 25 mg by mouth once daily25 mg, Oral, DAILY, First dose on Mon05/09/25 at 0900, Until DiscontinuedStart: 81-30-4923esvn 1 tablet by mouth twice dailyStart: 04-25-2022 End: 85-56-7653rzaj 1 tablet by mouth once dailylosartan (Cozaar) 50 MG tablet Indications: Benign essential hypertension Take 1 tablet (50 mg) by mouth Daily 100 tablet 3 07/29/2024 ActiveStart: 04-15-2022 End: 43-58-6206vogn 50 mg by mouth once daily50 mg, Oral, Daily, First dose on Mon04/15/22 at 0900Start: 01-19-2022 End: 87-07-3003uixl 50 mg by mouth once daily at lunch50 mg, Oral, Daily with lunch, First dose on Mon01/19/22 at 1200Start: 09-25-2019 End: 76-98-9498tvfa 1 mg by mouth once dailylosartan 25 mg Tab mg tab(s), Oral, Daily, Refills(s) 0 Start Date: 08/04/20 Status: Orderedtake 0.5 tablet by mouth once dailylosartan 50 MG tablet Take 0.5 tablets by mouth daily. 0 Active losartan 50 MG tablet Take 25 mg by mouth daily. 0 Activemagnesium citrate 58.2 mg/ml oral solution (9 sources)Start: 09-13-2018 End: 41-53-8269zbuygldzy citrate solution Take 296 mL by mouth as needed (Take if no bowel movement for 2-3 days) . 296 mL 0 09/13/2018 10/12/2018 Discontinued Start: 09-05-2018 End: 30-23-5548jeuh 296 mL by mouth dppb223 mL, Oral, Once, Mon09/05/18 at 1700, For 1 dosemagnesium hydroxide 80 mg/ml oral suspension (1 source)Start: 01-19-2022 End: 86-41-7363vfxaoedqu hydroxide (MOM) 400 mg/5 mL suspension 2,400 mg melatonin 3 mg oral tablet (4 sources)Start: 05-09-2025 End: 96-91-2958dkld 6 mg by mouth once daily at bedtime as needed6 mg, Oral, DAILY AT BEDTIME NEEDED, Starting on Mon05/09/25 at 0220, Until Mon05/13/25 at 1552,InsomniaStart: 03-14-2025 End: 37-96-8575Rhjtm: 01-19-2022 End: 46-55-9619pfdooesfe Tab 5 mgnaloxegol 12.5 mg oral tablet (1 source)Opioid AntagonistStart: 09-12-2018 End: 95-73-4760wbithcavx (MOVANTIK) tablet 12.5 mgnaloxone (NARCAN) injection 0.1 mg (6 sources)Start: 03-14-2025 End: 18-18-7253uablvfbv (NARCAN) injection 0.1 mgStart: 11-04-2022 End: 10-75-7838qwzjcela (NARCAN) injection 0.1 mgStart: 04-15-2022 End: 56-54-5690gyhglgks (NARCAN) injection 0.1 mgStart: 01-19-2022 End: 45-36-8301xkfzdabg (NARCAN) injection 0.1 mgStart: 10-08-2018 End: 75-42-7250uglabyhh (NARCAN) injection 0.1 mgStart: 09-07-2018 End: 69-05-9843prrehulm (NARCAN) injection 0.1 mgnepafenac 3 mg/ml ophthalmic suspension (1 source)Nonsteroidal Anti-inflammatory Drug End: 94-47-5834jjabpilye (Ilevro) 0.3 % DrpSondansetron (ZOFRAN-ODT) disintegrating tablet 4 mg (4 sources)Start: 11-03-2022 End: 86-96-9876olfu 1 tablet by mouth every six hours as needed for nausea and vomitingondansetron (ZOFRAN-ODT) disintegrating tablet 4 mgStart: 04-15-2022 End: 82-19-4773izdf 1 tablet by mouth every six hours as needed for nausea and vomitingondansetron (ZOFRAN-ODT) disintegrating tablet 4 mgStart: 01-19-2022 End: 64-00-2038ihxk 1 tablet by mouth every six hours as needed for nausea and vomitingondansetron (ZOFRAN-ODT) disintegrating tablet 4 mgStart: 10-08-2018 End: 75-38-7539gild 1 tablet by mouth every six hours as neededondansetron (ZOFRAN-ODT) disintegrating tablet 4 mgOndansetron 4mg/2ml (ZOFRAN) injection 4 mg (2 sources)Start: 05-09-2025 End: 82-53-9548bthf 4 mg intravenously every six hours as neededOndansetron 4mg/2ml (ZOFRAN) injection 4 mgoxyCODONE hydrochloride 5 mg oral tablet (16 sources)Opioid AgonistStart: 03-17-2025 End: 69-47-9616jtlu 5-10 mg by mouth every four hours as needed5-10 mg, Oral, Every 4 hours PRN, moderate to severe pain, Starting on Mon03/17/25 at 2111, Initiate with 5 mg oral every 4 hours prn moderate to severe pain. For unrelieved pain, may repeat 5 mg within 60 minutes of initial dose. If pain is RELIEVED after repeat dose, change to 10 mg every 4 hoursprn moderate to severe pain. If pain is UNrelieved after repeat dose, or patient requires dose reduc tion, call physician.Start: 07-15-2021 End: 31-80-9238eirn 1-2 tablets by mouth every four to six hours as needed for painoxyCODONE 5 MG tablet Indications: Acute postoperative pain of right hip Take 1-2 tabs po q 4-6 hours PRN pain. Wean as tolerated. 40 tablet 07/15/2021 05/09/2025 DiscontinuedStart: 09-07-2018 End: 94-41-1681oisj 1 tablet by mouth every six hours as needed for pain oxyCODONE (ROXICODONE) 5 MG immediate release tablet Indications: Ischemic foot , Critical lower limb ischemia Take 1 (one) tablet (5 mg total) by mouth every 6 (six) hours as needed for pain . 28 tablet 0 09/13/2018 09/20/2018 ActiveStart: 09-04-2018 End: 68-59-3482leur 5-10 mg by mouth every four hours as needed5-10 mg, Oral, Every 4 hours PRN (may repeat), moderate to severe pain, Starting Mon09/04/18 at 2336 Initiate with 5 mg oral every 4 hours prn moderate to severe pain. For unrelieved pain, may repeat 5 mg within 60 minutes of initial dose. If pain is RELIEVED after repeat dose, change to 10 mg every 4 hours prn moderate to severe pain. If pain is UNrelieved after repeat dose, or patient requires dose reduction, call physician.oxymetazoline hydrochloride 0.5 mg/ml nasal spray (2 sources)Start: 01-19-2022 End: 46-72-2589hilwfoooavwtb (AFRIN) 0.05 % nasal spray 2 spray End: 10-20-9366hoslxezemmyqj (AFRIN) 0.05 % nasal spray Instill 2 sprays into each nostril 2 (two) times a day as needed for congestion . 0 10/12/2018 Discontinuedpantoprazole 40 mg delayed release oral tablet (18 sources)Proton Pump InhibitorStart: 05-09-2025 End: 47-98-1592jlwr 40 mg by mouth once daily40 mg, Oral, DAILY, First dose on Mon05/09/25 at 0900, Until Discontinued, Swallow whole; do not crush or chew., Indications: Continuation of Home TherapyStart: 03-15-2025 End: 47-00-0140yojb 40 mg by mouth once daily40 mg, Oral, Daily, First dose on Mon03/15/25 at 0900, DO NOT CRUSH OR CHEW.Start: 11-03-2022 End: 04-75-0471ctsa 40 mg by mouth twice daily40 mg, Oral, 2 times daily, First dose on Prerna 11/03/22 at 2230 DO NOT CRUSH OR CHEW.Start: 04-15-2022 End: 84-72-1290hhaz 40 mg by mouth once daily40 mg, Oral, Daily, First dose on Mon04/15/22 at 0900 DO NOT CRUSH OR CHEW.Start: 01-19-2022 End: 76-80-8030prje 40 mg by mouth once daily40 mg, Oral, Daily, First dose on Mon01/19/22 at 0900 DO NOT CRUSH OR CHEW.Start: 10-12-2018 End: 37-55-7334mdux 1 tablet by mouth once dailypantoprazole (PROTONIX) 40 MG tablet Take 1 (one) tablet (40 mg total) by mouth daily . 30 tablet 03/13/2019 Discontinued (Therapy completed)Start: 10-09-2018 End: 59-80-7836urhvozbmsbkt (PROTONIX) injection 40 mgperflutren lipid microspheres (DEFINITY) 0.143 mg/mL solution 0-10 mL of mixture (2 sources)Start: 11-06-2022 End: 59-12-0505edwhxdpvlw lipid microspheres (DEFINITY) 0.143 mg/mL solution 0- 10 mL of mixtureStart: 10-08-2018 End: 31-05-8082htzsvpwwye lipid microspheres (DEFINITY) 0.143 mg/mL solution 0- 10 mL of mixturepolyvinyl alcohol 0.014 ml/ml ophthalmic solution (1 source)Start: 03-14-2025 End: drop, Both Eyes, As needed, dry eyes, Starting on Mon03/14/25 at 2025prochlorperazine 5 mg/ml injectable solution (2 sources)PhenothiazineStart: 03-18-2025 End: 68-39-3982ttbv 2.5 mg intravenously every six hours as needed for nausea2.5 mg, Intravenous, Every 6 hours PRN, nausea, Starting on Mon03/18/25 at 0202, If IV, give slow IV push at a rate not exceeding 5 mg/minute and remain lying down for 30 minutes to reduce risk of hypotension. If IM, inject deep into outer buttocks quadrant.Start: 09-06-2018 End: 72-02-5570qebv 5 mg intravenous route every six hours as needed prochlorperazine (COMPAZINE) injection 5 mgsennosides, jail 8.6 mg oral tablet (15 sources)Start: 05-11-2025 End: 98-65-9420rneu 8.6 mg by mouth twice daily8.6 mg, Oral, 2 TIMES DAILY, First dose (after last modification) on Mon05/11/25 at 0930, Until Discontinued Start: 09-04-2011 End: 01-50-9075ixlt 8.6 mg by mouth once daily as needed for constipation8.6 mg, Oral, DAILY NEEDED, Starting on Mon05/09/25 at 0221, Until Mon05/11/25 at 0916, Constipation 1st Linesildenafil 100 mg oral tablet (10 sources)Phosphodiesterase 5 InhibitorStart: 05-10-2017 End: 43-08-8533govx 1 tablet by mouth once daily as neededSildenafil 100 mg Tablet Discontinued 100 MG PO Daily as needed for Erectile Dysfunction May 10, 2017 12:00am October 12, 2023 9:00wf126 ml sodium chloride 9 mg/ml injection (19 sources)Start: 05-09-2025 End: 29-25-0558Fofindurjiu, at 20 mL/hr, NEEDED, Starting on Mon05/09/25 at 0220, Until Mon05/13/25 at 1552, Carrier Fluid - See Admin. Inst, 250mL 0.9NS to be used as carrier fluid for intermittent small volumeor piggyback medication administration as needed. Infusion rate of the carrier fluid should be set at 20 mL/hr unless the rate as the intermittent medication is less than 20 mL/hr. For intermittent medications with a rate less than 20 mL/hr set the carrier fluid at that rate of the intermittent or piggy back medication.Start: 03-17-2025 End: ,000 mL, Intra-catheter (arterial), Continuous, Starting on Mon03/17/25 at 2200, Maintain Arterialline at 300 mm HgStart: 03-14-2025 End: spray, Each Nare, As needed, irritation, Starting on Mon03/14/25 at 2026, Upright delivers a spray; Horizontally a stream; Upside down a drop.Start: 03-14-2025 End: 55-59-2717ftroxa chloride (PF) (NS) flush 5 mLStart: 11-05-2022 End: 06-16-7528zctttw chloride (OCEAN) 0.65 % nasal spray 1 sprayStart: 11-03-2022 End: 88-89-2710iuzymc chloride (PF) (NS) flush 5 mLStart: 11-03-2022 End: 25-85-7066ftlcjn chloride (PF) (NS) flush 5 mLStart: 04-15-2022 End: 53-77-8856ndgpru chloride (PF) (NS) flush 5 mLStart: 04-14-2022 End: 26-98-1551hokmoj chloride (PF) (NS) flush 5 mLStart: 01-19-2022 End: 15-72-9775mrfzqr chloride (PF) (NS) flush 5 mLStart: 01-18-2022 End: 74-30-0148pnghzh chloride 0.9% (NS) bolus 1,000 mLStart: 10-09-2018 End: 64-88-4823pqmdwc chloride 0.9% (NS)Start: 09-11-2018 End: 97-66-6699ramxre chloride 0.9% (NS)Start: 09-05-2018 End: 02-01-9147lkyd 125 mL intravenous route every anny659 mL/hr, Intravenous, Continuous, Starting Mon09/05/18 at 1700, For 3 hoursStart: 09-05-2018 End: 71-46-5017usewio chloride 0.9% (NS)sodium chloride (PF) (NS) 0.9 % contrast line flush 10 mL (1 source)Start: 01-19-2022 End: 89-42-0026pxggos chloride (PF) (NS) 0.9 % contrast line flush 10 mL therapeutic multivitamin-minerals tablet (10 sources)Start: 07-15-2021 End: 01-64-2140gwnk 1 tablet by mouth at bedtimetherapeutic multivitamin- minerals tablet Take 1 tablet by mouth at bedtime. 30 tablet 07/15/202107/2025 Discontinued (Medication Reconciliation (suppress cancel msg))Start: 82-91-9076rvse 1 tablet by mouth at bedtimetherapeutic multivitamin-minerals tablet Take 1 tablet by mouth at bedtime. 30 tablet 0 07/15/2021 Hnjifc19 actuat tiotropium 0.0025 mg/actuat inhalation spray (12 sources)AnticholinergicStart: 01-22-2022 End: 35-83-1742ychf 2 puff(s) by inhalation once dailytiotropium bromide (SPIRIVA RESPIMAT) 2.5 mcg/actuation Mist Inhale 2 (two) puffs daily Start: 01/22/22. 4 g 2 01/22/2022 11/08/2022 Discontinued (Stop Taking at Discharge) Start: 01-22-2022 End: 99-83-3836mgrq 2 puff(s) by inhalation once dailytiotropium bromide (SPIRIVA RESPIMAT) 2.5 mcg/actuation Mist Inhale 2 (two) puffs daily Start: 01/22/22. 4 g 2 01/22/2022tart: 01-19-2022 End: 87-42-0014irbskpzvlz bromide (SPIRIVA RESPIMAT) 2.5 mcg/actuation inhaler 2 puff10 ml tranexamic acid 100 mg/ml injection (3 sources)Antifibrinolytic AgentStart: 05-10-2025 End: 61-65-3395133 mg, Nebulization, 2 TIMES DAILY, First dose on 05/10/25 at 0900, Until Discontinued, For nebulization only.Start: 68-86-1209cmro 500 mg by inhalation three times dailytraZODone hydrochloride 50 mg oral tablet (1 source)Serotonin Reuptake InhibitorStart: 10-04-2018 End: 15-99-3939rqdYWCtbe (DESYREL) tablet 50 mgurea 400 mg/ml topical cream (10 sources) End: 19-89-0723ypit (CARMOL) 40 % Crea 03/14/2025 Discontinued (Therapy completed)150 ml vancomycin 5 mg/ml injection (1 source)Glycopeptide AntibacterialStart: 11-04-2022 End: 84-93-5660boru 750 mg intravenously every twelve hoursvancomycin (VANCOCIN) 750 mg in sodium chloride 0.9% (NS) 150 mL IVPBvancomycin (VANCOCIN) 1,500 mg in sodium chloride 0.9 % (NS) 500 mL IVPB (1 source)Start: 10-08-2018 End: 52-38-2374tntl 1500 mg intravenous route every twelve hoursvancomycin (VANCOCIN) 1,500 mg in sodium chloride 0.9 % (NS) 500 mL IVPBvancomycin (VANCOCIN) 1,750 mg in sodium chloride 0.9 % (NS) 500 mL IVPB (3 sources)Start: 10-12-2018 End: 37-48-6931civtpgpatq (VANCOCIN) 1,750 mg in sodium chloride 0.9 % (NS) 500 mL IVPBStart: 10-11-2018 End: 40-00-5775pbmlcjdjgp (VANCOCIN) 1,750 mg in sodium chloride 0.9 % (NS) 500 mL IVPBStart: 10-04-2018 End: 76-51-0347mbdmdlcweq (VANCOCIN) 1,750 mg in sodium chloride 0.9 % (NS) 500 mL IVPBvancomycin (VANCOCIN) 1750 mg in sodium chloride 0.9% (NS) 500 mL IVPB (1 source)Start: 01-20-2022 End: 73-20-9490azdwjhtbmt (VANCOCIN) 1750 mg in sodium chloride 0.9% (NS) 500 mL IVPBvancomycin (VANCOCIN) 2,500 mg in sodium chloride 0.9 % (NS) 500 mL IVPB (1 source)Start: 11-03-2022 End: 05-33-1431fcfefljovv (VANCOCIN) 2,500 mg in sodium chloride 0.9 % (NS) 500 mL IVPBvancomycin (VANCOCIN) 2000 mg in sodium chloride 0.9% 500 mL IVPB (1 source)Start: 01-18-2022 End: 83-62-3107calouakxeo (VANCOCIN) 2000 mg in sodium chloride 0.9% 500 mL IVPB Vancomycin HCl in NaCl (Vancocin) 1,250 mg 287.5 ml premade IVPB (2 sources)Start: 05-09-2025 End: 89-66-7545dewy 1250 mg intravenously every twelve hours1,250 mg, Intravenous, Administer over 2 Hours, EVERY 12 HOURS NON-STANDARD, First dose (after lastreorder) on Mon05/09/25 at 1830, Until Discontinued, Indication for treatment with Vancomycin - Culture/Source: infected bullae vs lung abscess Vancomycin HCl in NaCl (Vancocin) 1,500 mg 290 ml premade IVPB (4 sources)Start: 05-10-2025 End: 58-05-6023ctos 1500 mg intravenously every twelve hours1,500 mg, Intravenous, Administer over 2 Hours, EVERY 12 HOURS NON-STANDARD, First dose (after lastmodification) on Mon05/10/25 at 1915, Until Discontinued, Indication for treatment with Vancomycin - Culture/Source: infected bullae vs lung abscess Start: 05-09-2025 End: ,500 mg (rounded from 1,393.5 mg = 15 mg/kg 92.9 kg Adjusted weight), Intravenous, Administer over2 Hours, ONCE, 1 dose, On Mon05/09/25 at 0500, Indication for treatment with Vancomycin - Culture/Source: infected bullae vs lung abscess Problems Active Problems Problem ClassificationProblemDateDocumented DateEpisodic/ChronicAcute myocardial infarction (2 sources)Non-ST elevation (NSTEMI) myocardial infarction; Translations: [Non- ST elevation (NSTEMI) myocardial infarction]Onset: 41-40-9515BligzmwFkydcf; peripheral; and visceral artery aneurysms (20 sources)Thoracic aortic aneurysm, without rupture; Translations: [Abdominal aortic aneurysm]Onset: 163848-05-9721UkjyvykKzaapy (20 sources)Asthmatic bronchitis; Translations: [Unspecified asthma, uncomplicated]Onset: 641275-80-1618CcjdczbZkuxmd of prostate (20 sources)Malignant tumor of prostate; Translations: [Malignant neoplasm of prostate]Onset: 114008-10-0217UcoqihbXxpmna of prostate (9 sources)History of malignant neoplasm of prostate; Translations: [Personal history of malignant neoplasm ofprostate]Onset: 735020-67-7454Nemwonkw Cardiac dysrhythmias (20 sources)Paroxysmal atrial fibrillation; Translations: [Paroxysmal atrial fibrillation]Onset: 491581-07-7841TagoxohHpdpakd kidney disease (20 sources)Chronic kidney disease stage 3A ; Translations: [Stage 3a chronic kidney disease (HCC)]Onset: 063288-55-7192CwhumfpOilbolq obstructive pulmonary disease and bronchiectasis (20 sources)Chronic obstructive lung disease; Translations: [Chronic obstructive pulmonary disease, unspecified]Onset: 10-30-2022 Resolved: 55-74-7488KsfkkueWgomfjn obstructive pulmonary disease and bronchiectasis (6 sources)Bronchitis, not specified as acute or chronic; Translations: [Bronchitis]Onset: 081868-75-0381EzfjofefBncxntk ulcer of skin (20 sources)Ulcer of toe; Translations: [Ischemic ulcer of toe]Onset: 04-14-2025 03-33-7106EqntpjmOgdpdcsafvr and hemorrhagic disorders (20 sources)Thrombophilia; Translations: [Other thrombophilia]Onset: 03-21-2024 92-42-9379HubgzkwDfeyopzlglpj of device; implant or graft (20 sources)Arteriosclerosis of coronary artery bypass graft; Translations: [Atherosclerosis of coronary arterybypass graft(s) without angina pectoris] Onset: 535565-49-1280CysodqhNnvdzazthuot of device; implant or graft (1 source)Joint pain; Translations: [Pain due to internal orthopedic prosthetic devices, implants and grafts,subsequent encounter]EpisodicConditions associated with dizziness or vertigo (1 source)Dizziness and giddiness; Translations: [Dizziness and giddiness]Onset: 11-35-9308NfjpdouvXyeiuvmzvn heart failure; nonhypertensive (20 sources)Acute on chronic diastolic (congestive) heart failure; Translations: [Chronic heart failure co-occurrent with normal ejection fraction]Onset: 80-61-3907OgszowzYzyjxftb atherosclerosis and other heart disease (20 sources)Coronary atherosclerosis; Translations: [Atherosclerotic heart disease of [place] coronary artery without angina pectoris]Onset: 07-04-2008 28-87-0460DokqkwjKrwxraukft and other anemia (11 sources)Anemia; Translations: [Anemia, unspecified]Onset: 05-09-2025 12-11-8035OayllcmiNhjzmhkzw of lipid metabolism (20 sources)Hypercholesterolemia; Translations: [Pure hypercholesterolemia, unspecified]Onset: 08-30-2013 Resolved: 182667-58-5818LtvjyvjVhfihhdng of teeth and jaw (1 source)Arthralgia of bilateral temporomandibular joint; Translations: [Bilateral temporomandibular joint pain]Essential hypertension (20 sources)Essential hypertension; Translations: [Essential (primary) hypertension]Onset: 244413-38-0579SwwytkhYnbxbmpg (14 sources)Gangrene of left foot; Translations: [Gangrene of left foot]Onset: 483499-26-3400Poudpmojtilgl symptoms and ill-defined conditions (9 sources)Nocturia; Translations: [Dysuria]52-27-0161CrqgaseaVbspz valve disorders (20 sources)Aortic valve regurgitation; Translations: [Nonrheumatic aortic (valve) insufficiency]Onset: 287857-39-7398GjetlvlWhouychyqet of prostate (9 sources)Benign prostatic hypertrophy with outflow obstruction; Translations: [Benign prostatic hyperplasia with lower urinary tract symptoms]Onset: 840414-20-1088CdoshvzNhpqgsivjhgb with complications and secondary hypertension (20 sources)Chronic kidney disease due to hypertension; Translations: [Hypertensive chronic kidney disease withstage 1 through stage 4 chronic kidney disease, or unspecified chronic kidney disease]Onset: ChronicImmunizations and screening for infectious disease (20 sources)Needs influenza immunization; Translations: [Encounter for immunization]Onset: 06-06-2023 Resolved: 037803-40-3210NtquawapVosecaiie arthritis and osteomyelitis (except that caused by tuberculosis or sexually transmitted disease) (20 sources)Osteomyelitis of right foot; Translations: [Osteomyelitis, unspecified]Onset: 757524-03-0805XmfgvpeTgeuucmelefxy mental health disorders (5 sources)Primary insomnia; Translations: [Primary insomnia]93-56-1979Yzlatib Nonspecific chest pain (20 sources)Other chest pain; Translations: [Chest pain, unspecified]Onset: 08-30-2013 Resolved: 465673-44-0310KuidmtbnKadlkptcc or stenosis of precerebral arteries (20 sources)Bilateral stenosis of carotid arteries; Translations: [Occlusion and stenosis of bilateral carotid arteries]Onset: 81-65-6700PovvzygZiixlszdt or stenosis of precerebral arteries (2 sources)Bilateral carotid artery stenosis; Translations: [Bilateral carotid artery stenosis]Osteoarthritis (20 sources)Arthritis; Translations: [Unspecified osteoarthritis, unspecified site]Onset: 187853-26-5144InjdrzpSoijd and ill-defined heart disease (4 sources)Heart disease, unspecified; Translations: [HEART DISEASE UNSPECIFIED] Onset: 06-57-9601IminenrNbgkn bone disease and musculoskeletal deformities (2 sources)History of amputation of foot; Translations: [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 (HCC)]ChronicOther bone disease and musculoskeletal deformities (16 sources)History of amputation of left foot; Translations: [Acquired absence of left foot]Onset: 206404-64-7260UzgojjgRjeuu bone disease and musculoskeletal deformities (20 sources)Absence of lower limb; 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]Onset: 309505-44-1008IxbueuqNwpag bone disease and musculoskeletal deformities (10 sources)Amputated foot; Translations: [Acquired absence of unspecified foot] Onset: 843729-63-4581KxuakkkPinhi circulatory disease (20 sources)Critical lower limb ischemia ; Translations: [Critical lower limb ischemia]Onset: 585567-97-7927KkiqnkhAreft circulatory disease (1 source)Other disorder of circulatory system; Translations: [Ischemic foot] EpisodicOther circulatory disease (5 sources)History of arterial bypass of lower limb artery; Translations: [S/P bypass graft of extremity]EpisodicOther circulatory disease (2 sources)Other specified symptoms and signs involving the circulatory and respiratory systemsEpisodicOther circulatory disease (1 source)Critical lower limb eobkgtbl28-94-8626AkhyhmxrXgfjg circulatory disease (2 sources)Wheeze - rhonchi; Translations: [Other specified symptoms and signs involving the circulatory and respiratory systems]26-61-2207WtayatneUxdqy connective tissue disease (20 sources)History of total hip arthroplasty; Translations: [Presence of unspecified artificial hip joint]Onset: 697096-79-5255WfkvpjhUrjrh connective tissue disease (3 sources)History of total replacement of right hip joint; Translations: [Presence of right artificial hip joint]ChronicOther connective tissue disease (2 sources)Presence of right artificial hip joint; Translations: [Presence of right artificial hip joint]Onset: 91-79-4965JjgiulhFyugw connective tissue disease (20 sources)Polymyalgia rheumatica; Translations: [Polymyalgia rheumatica]Onset: 709078-08-6111SvdolilKanik connective tissue disease (2 sources)Pain in left foot; Translations: [Left foot pain]EpisodicOther connective tissue disease (2 sources)Pain in left leg; Translations: [Pain in left leg]Onset: 08-29-2018 EpisodicOther connective tissue disease (2 sources)Pain in leg, unspecified; Translations: [Pain in leg, unspecified] Onset: 02-28-2903CnplrqzyEutje connective tissue disease (3 sources)Pain in right lower limb; Translations: [Pain in right leg]Episodic Other connective tissue disease (2 sources)Pain in right leg; Translations: [Pain in right leg]Onset: 03-14-2025 EpisodicOther connective tissue disease (2 sources)Posterior tibial tendinitis, right leg; Translations: [Posterior tibial tendinitis, right leg]Onset: 17-48-3784FvqrzuqeZymns connective tissue disease (1 source)Pain in right foot; Translations: [Pain in right foot]Onset: 43-51-6513DktczadtKydyo diseases of kidney and ureters (1 source)Urinary tract obstruction; Translations: [Other obstructive and reflux uropathy]Onset: 51-10-7378ObitujxyVcrdo ear and sense organ disorders (1 source)Referred otalgia; Translations: [Referred otalgia of right ear] EpisodicOther ear and sense organ disorders (4 sources)Acute eczematoid otitis externa; Translations: [Acute eczematoid otitis externa, right ear]Onset: 898639-10-5742PgdbivxgVsxxo hematologic conditions (1 source)Raised cardiac enzyme or marker; Translations: [Other specified abnormalities of plasma proteins]EpisodicOther lower respiratory disease (19 sources)Hemoptysis; Translations: [Hemoptysis]Onset: EpisodicOther lower respiratory disease (2 sources)Abscess of lung; Translations: [Abscess of lung without pneumonia] 79-41-1275ZafngysmXgspk lower respiratory disease (2 sources)Hemoptysis; Translations: [Hemoptysis]Onset: 98-32-3861ZhhvulwgIpqsf lower respiratory disease (1 source)Dyspnea, unspecified; Translations: [Dyspnea, unspecified]Onset: 89-38-5886CbzokiwjSojja lower respiratory disease (1 source)Abscess of lung without pneumonia; Translations: [Abscess of lung without pneumonia]Onset: 64-32-4570ZtbcaffsYsesh male genital disorders (3 sources)Qmxbhqewn83-93-2586JqyfrjvGbdaj male genital disorders (3 sources)Impotence of organic grxpyo70-70-3414KpktbxgZazmb male genital disorders (2 sources)Male erectile dysfunction, unspecified; Translations: [Erectile dysfunction]Onset: 77-45-3422OndwtbnWgncl male genital disorders (20 sources)Secondary erectile dysfunction; Translations: [Male erectile dysfunction, unspecified]Onset: 658661-78-9539LmjxpltXoiog nervous system disorders (20 sources)Neuropathy; Translations: [Polyneuropathy, unspecified]Onset: 515679-96-4391NyjquouRuvqr nervous system disorders (20 sources)Chronic pain; Translations: [Other chronic pain]Onset: 04-09-2023 41-03-1133LvdollgQzzub nervous system disorders (20 sources)Phantom limb syndrome with pain; Translations: [Phantom limb syndrome with pain]Onset: 941130-25-9645QmumnwsEllox nervous system disorders (20 sources)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; Translations: [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]Onset: 903864-84-5426OhajbdfZrssf nervous system disorders (1 source)Acute postoperative pain; Translations: [Acute post-operative pain] EpisodicOther nervous system disorders (2 sources)Other acute postprocedural pain; Translations: [Other acute postprocedural pain]Onset: 27-72-6319AyhtnucsPuezi nervous system disorders (1 source)Skin tenderness; Translations: [Other disturbances of skin sensation] EpisodicOther nutritional; endocrine; and metabolic disorders (20 sources)Obesity; Translations: [Obesity, unspecified]Onset: 09-05-2018 18-65-7692HqrvrmrOngnv nutritional; endocrine; and metabolic disorders (20 sources)Disorder of lipid metabolism; Translations: [Disorder of lipoprotein metabolism, unspecified]Onset: 099324-39-0648PlamyfePpiux screening for suspected conditions (not mental disorders or infectious disease) (20 sources)Radiology result abnormal; Translations: [Abnormal findings on diagnostic imaging of other specified body structures]Onset: 04-09-2023 91-96-7442UjnkrfePwdeq screening for suspected conditions (not mental disorders or infectious disease) (6 sources)Elevated C-reactive protein; Translations: [Elevated C-reactive protein (CRP)]EpisodicOther skin disorders (1 source)Actinic keratosis; Translations: [Actinic keratosis]EpisodicOther skin disorders (1 source)Seborrheic keratosis; Translations: [Other seborrheic keratosis] EpisodicOther skin disorders (1 source)Inflamed seborrheic keratosis; Translations: [Inflamed seborrheic keratosis]EpisodicOther skin disorders (1 source)Asteatosis cutis; Translations: [Xerosis cutis]EpisodicOther upper respiratory disease (20 sources)Seasonal allergic rhinitis; Translations: [Other seasonal allergic rhinitis]Onset: 401893-95-6475PvqelfuYndpq upper respiratory disease (6 sources)Allergic rhinitis due to pollen; Translations: [Allergic rhinitis due to pollen]11-81-9958ZxfpinsZujly upper respiratory infections (2 sources)Upper respiratory infection; Translations: [Acute upper respiratory infection, unspecified]33-48-9792RnnkvnnoNgibmfnpey and visceral atherosclerosis (20 sources)Peripheral vascular disease; Translations: [Atherosclerosis of [place] arteries of the extremities]Onset: 08-08-2018 Resolved: 30-72-4585HlcyjosAxgveutyfx and visceral atherosclerosis (1 source)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; Translations: [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)]Pulmonary heart disease (20 sources)Pulmonary hypertension; Translations: [Pulmonary hypertension, unspecified]Onset: 449642-75-0651HyxeesxZerkzdyu codes; unclassified (4 sources)Other specified postprocedural statesOnset: 04-19-2022 Resolved: 88-38-9567AeylwllbGxcjgjnw codes; unclassified (1 source)Peripheral edema; Translations: [Edema, unspecified]Episodic Respiratory failure; insufficiency; arrest (adult) (3 sources)Acute respiratory failure; Translations: [Acute respiratory failure with hypoxia]Onset: 148266-85-1275ZzchtjbyDdtwjpereji; intervertebral disc disorders; other back problems (20 sources)Lumbosacral spondylosis without myelopathy; Translations: [Spondylosis without myelopathy or radiculopathy, lumbosacral region]Onset: 497701-48-9474CjpajjfYnaqgifdk-prqwmqx disorders (13 sources)Opioid dependence; Translations: [Opioid dependence, uncomplicated] Onset: 140178-00-3041BpuwfxxTrvasaqzybwe (2 sources)Unknown / UNK(Unknown)Onset: 28-71-9224Hxbbvyyjmkas (3 sources)Asymptomatic microscopic -99-0453Ahuwpiaxumyg (3 sources)Drug therapy bbcyhvv96-29-6009Nzouvaxgjzvv (1 source)Aneurysm of the ascending aorta, without rupture; Translations: [Aneurysm of the ascending aorta, without rupture]Onset: 99-26-4528Ptmrnezbscug (6 sources)call to schedule follow up with Dr. Michel (1 source)Hematoma of arm, left, initial lfodyprhh19-89-6904Poecyiptvmcd (2 sources)Please arrange a follow-up appointment upon discharge from facility. Viral infection (20 sources)Herpes zoster; Translations: [Zoster without complications]Onset: 09-04-2011 Resolved: 766608-12-6338Nqhlkeup Past or Other Problems Problem ClassificationProblemDateDocumented DateEpisodic/ChronicAbdominal pain (20 sources)Abdominal pain; Translations: [Unspecified abdominal pain]Onset: 07-11-2014 Resolved: 249330-61-3307PsdetzjyKfeqfltjqmwsvs/social admission (2 sources)Patient encounter status; Translations: [Other specified counseling] 12-21-4349TsuwebzjYymtclyk (20 sources)Cataract; Translations: [Unspecified cataract]Onset: 04-09-2023 Resolved: 969534-15-8716InamuzdInlvgipgebxmx of surgical procedures or medical care (20 sources)Late amputation stump complication; Translations: [Other complications of amputation stump]Onset: 359508-15-7557PdcfshbaEbwekrtc atherosclerosis and other heart disease (2 sources)Presence of aortocoronary bypass graft; Translations: [Presence of aortocoronary bypass graft]Onset: 75-15-3937UnycssilUqmwcqkc (20 sources)Gangrenous disorder; Translations: [Gangrene, not elsewhere classified]Onset: 10-04-2018 Resolved: 734485-91-9438MoavuodmSrnn disorders (20 sources)Mood disordersOnset: 04-26-2024 Resolved: Nausea and vomiting (20 sources)Nausea; Translations: [Nausea]Onset: 06-06-2023 Resolved: 283780-85-5754JbgsiuvzIqymz bone disease and musculoskeletal deformities (20 sources)Avascular necrosis of bone of hip; 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]Onset: 09-04-2011 Resolved: 030764-30-5292QmixxynQtafi connective tissue disease (20 sources)Pain in left lower limb; Translations: [Pain in left leg]Onset: 09-04-2011 Resolved: 735876-25-6110WtkcxijuVkaoc connective tissue disease (2 sources)Contracture of tendo achilles; Translations: [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, left]EpisodicOther connective tissue disease (20 sources)Tendinitis of right posterior tibial tendon; Translations: [Posterior tibial tendinitis, right leg]Onset: 016470-22-7519AssysflyFuypi connective tissue disease (12 sources)Pain in lower limb; Translations: [Pain in right leg]Onset: 376840-48-5450CrpqpvzwMazha gastrointestinal disorders (20 sources)Slow transit constipation; Translations: [Slow transit constipation] Onset: 833295-67-8414JgklhaepLlwhn gastrointestinal disorders (20 sources)Heartburn; Translations: [Heartburn]Onset: EpisodicOther gastrointestinal disorders (20 sources)Constipation; Translations: [Constipation, unspecified]Onset: 04-09-2023 Resolved: 999773-60-4686GrravvmmWvtms hematologic conditions (20 sources)ESR raised; Translations: [Elevated erythrocyte sedimentation rate] Onset: 953076-14-7853ImjcdjtfRcmss injuries and conditions due to external causes (20 sources)Contusion; Translations: [Other injury of unspecified body region, initial encounter]Onset: 07-15-2014 Resolved: 863498-12-7321QbmhwpbmNwznf lower respiratory disease (20 sources)Nodule of lung; Translations: [Solitary pulmonary nodule]Onset: 80-07-8992FkhmboqfZaqwj lower respiratory disease (20 sources)Solitary nodule of lung; Translations: [Solitary pulmonary nodule] Onset: 156411-93-1600EytatmstEvneg lower respiratory disease (20 sources)Dyspnea; Translations: [Dyspnea, unspecified]Onset: 08-30-2013 49-30-0928AdxzgtwiKgmvs lower respiratory disease (20 sources)Orthopnea; Translations: [Orthopnea]Onset: EpisodicOther lower respiratory disease (20 sources)Snoring; Translations: [Snoring]Onset: 890559-17-9267Bgyirbbf Other lower respiratory disease (2 sources)Dyspnea on exertion; Translations: [Other forms of dyspnea]04-26-2024 EpisodicOther lower respiratory disease (1 source)Solitary pulmonary nodule; Translations: [Solitary pulmonary nodule] Onset: 85-30-0247KfenrwusLjzdr nervous system disorders (20 sources)Paresthesia; Translations: [Paresthesia of skin]Onset: 04-09-2023 30-19-0917IkzjldpuZicyn non-traumatic joint disorders (10 sources)Hip pain; Translations: [Pain in unspecified hip]Onset: 09-04-2011 Resolved: 24-52-0392HbbuhshfVnott nutritional; endocrine; and metabolic disorders (20 sources)Obese class I; Translations: [Obesity, unspecified]Onset: 08-10-2018 Resolved: 345248-87-0306UdgjldoHysel upper respiratory infections (20 sources)Sinusitis; Translations: [Chronic sinusitis, unspecified]Onset: 04-09-2023 Resolved: 987817-33-5954EmrzlzqFeqokebuw (except that caused by tuberculosis or sexually transmitted disease) (20 sources)Pneumonia, unspecified organism; Translations: [Community acquired pneumonia]Onset: 10-30-2022 Resolved: 47-21-5521HyrawelrSzvyxlgp codes; unclassified (2 sources)Edema of lower extremity; Translations: [Lower extremity edema] EpisodicResidual codes; unclassified (20 sources)Insomnia; Translations: [Insomnia, unspecified]Onset: 01-19-2023 01-65-3124GatsltmtOijr and subcutaneous tissue infections (20 sources)Cellulitis of left lower limb; Translations: [Cellulitis of left lower limb]Onset: 01-18-2022 Resolved: 25-60-7886GfrmsoijQswookclgkw; intervertebral disc disorders; other back problems (20 sources)Sciatica; Translations: [Sciatica, left side]Onset: 04-09-2023 70-60-5546HjaxjlpfUhngwmvmgmr injury; contusion (20 sources)Contusion of upper limb; Translations: [Contusion of left upper arm, initial encounter]Onset: 11-04-2022 Resolved: 21-38-6644CkpwifsjOchqlhsxkiod (1 source)Aneurysm of the ascending aorta, without rupture; Translations: [Aneurysm of the ascending aorta, without rupture]Onset: 25-32-6408Hzrvkyuqavkj (5 sources)Peripheral artery rzundse44-49-6192Arykqqn tract infections (20 sources)Acute cystitis; Translations: [Acute cystitis without hematuria] Onset: 03-21-2024 Resolved: 042938-92-4449Igswlrgs Results Test NameValueInterpretationReference RangeFacilityUS ANKLE/BRACHIAL INDICES EXTREMITY LIMITEDon 51-55-2608HT ANKLE/BRACHIAL INDICES EXTREMITY LIMITEDPatient Info Name: Tristin Powell Age: 85 years : 1940 Gender: Male Exam Date: 06/05/2025 1:16 PM Patient Status: OUTPATIENT Site Location: Indications I73.9 - PVD (peripheral vascular disease) Procedure Description 30448 Limited bilateral noninvasive physiologic studies of upper or lower extremity arteries with bidirectional Doppler/PVR waveform analysis at 1-2 levels. Stock Cutter: Ginette Gonzalez RDMS, RVS Staff Ordering Provider: Mohsen Sarabia MD, VI Conclusions * Right. * Right ankle brachial index is normal. YAMILE is 0.90. * Mild small vessel disease at the transmetatarsal level in the right foot. * Right 2nd digit PPG is performed due to wound on 1st digit, abnormal PPG waveform is noted. * Left. * Left ankle brachial index indicates mild peripheral artery disease. YAMILE is 0.80. Based on PVR, doppler waveforms, and pressures mild to moderate peripheral artery disease is suggested. 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 * Left toe brachial index is not obtained due to amputation. * Previous YAMILE done at [facility]- Right: 0.96 Left: 0.57. Recommendations * This [...] Segmental BP RIGHT Brachial A mmH RIGHT CSM CONSULTANT mmH RIGHT CSM CONSULTANT Index: 0.90 RIGHT DPA mmH RIGHT DPA Index: 0.80 RIGHT YAMILE Index: 0.90 LEFT Brachial A mmH LEFT CSM CONSULTANT Index: 0.65 LEFT CSM CONSULTANT mmH LEFT DPA Index: 0.80 LEFT DPA mmH LEFT YAMILE Index: 0.80 Doppler RIGHT CSM CONSULTANT Waveform: Multiphasic RIGHT DPA Waveform: Multiphasic LEFT CSM CONSULTANT Waveform: Multiphasic LEFT DPA Waveform: Multiphasic , PVR RIGHT Ankle Grade: Abnormal RIGHT Transmetarsal Grade: Abnormal RIGHT Digit (PPG) Grade: Abnormal LEFT Ankle Grade: Abnormal Prior Interventions 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 Report Signatures Finalized by Eliud Cervantes MD on 06/05/2025 02:48 [facility] ANKLE/BRACHIAL INDICES EXTREMITY LIMITEDPatient Info Name: Tristin Powell Age: 85 years : 1940 Gender: Male Exam Date: 06/05/2025 1:16 PM Patient Status: OUTPATIENT Site Location: Indications I73.9 - PVD (peripheral vascular disease) Procedure Description 67034 Limited bilateral noninvasive physiologic studies of upper or lower extremity arteries with bidirectional Doppler/PVR waveform analysis at 1-2 levels. Stock Cutter: Ginette Gonzalez RDMS, RVS Staff Ordering Provider: Mohsen Sarabia MD, RPVI Conclusions * Right. * Right ankle brachial index is normal. YAMILE is 0.90. * Mild small vessel disease at the transmetatarsal level in the right foot. * Right 2nd digit PPG is performed due to wound on 1st digit, abnormal PPG waveform is noted. * Left. * Left ankle brachial index indicates mild peripheral artery disease. YAMILE is 0.80. Based on PVR, doppler waveforms, and pressures mild to moderate peripheral artery disease is suggested. 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 * Left toe brachial index is not obtained due to amputation. * Previous YAMILE done at [facility]- Right: 0.96 Left: 0.57. Recommendations * This [...] Segmental BP RIGHT Brachial A mmH RIGHT CSM CONSULTANT mmH RIGHT CSM CONSULTANT Index: 0.90 RIGHT DPA mmH RIGHT DPA Index: 0.80 RIGHT YAMILE Index: 0.90 LEFT Brachial A mmH LEFT CSM CONSULTANT Index: 0.65 LEFT CSM CONSULTANT mmH LEFT DPA Index: 0.80 LEFT DPA mmH LEFT YAMILE Index: 0.80 Doppler RIGHT CSM CONSULTANT Waveform: Multiphasic RIGHT DPA Waveform: Multiphasic LEFT [employer]SM CONSULTANT Waveform: Multiphasic LEFT DPA Waveform: Multiphasic , PVR RIGHT Ankle Grade: Abnormal RIGHT Transmetarsal Grade: Abnormal RIGHT Digit (PPG) Grade: Abnormal LEFT Ankle Grade: Abnormal Prior Interventions 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 Report Signatures Finalized by Eliud Cervantes MD on 06/05/2025 02:48 PM Dictated by: ELIUD CERVANTES on MonJun 05, 2025 2:48:58 PM EDT Transcribed by: ELIUD CERVANTES on MonJun 05, 2025 2:48:58 PM EDT Finalized by: ELIUD CERVANTES on Prerna Jun 05, 2025 2:48:58 PM EDTNoTrinity Health System Twin City Medical CenterATININEon 06-90-8481Pkkoemryii [Mass/Vol]0.77 mg/dLNormal0.70-1.30 [facility] HospitalComment on above:Performed By: #### HH #### [facility] (DEFAULT) [address] [address]KEB/1.73 sq M.predicted among non-blacks MDRD (S/P/Bld) [Vol rate/Area]87 mL/min/{1.73_m2}Normal>=60[facility] HospitalComment on above:Result Comment: Reported eGFR is based on the CKD-EPI 2020 equation using creatinine, age, and sex.Performed By: #### HH #### [facility] (DEFAULT) [address] [place] [address] 63332Ipzocdkatr - Chemistry and Chemistry - challengeon 05-13-2025 Creatinine [Mass/Vol]0.77 mg/dL0.70 - 1.30 mg/dLMarymount HospitalNo Panel Informationon [id number], CKD-EPI, Male87- PINMorrow County HospitalComment on above:Reported eGFR is based on the CKD-EPI 2020 equation using creatinine, age, and sex.Interpretation and review of laboratory resultsNormal [facility] HospitalOSToledo HospitalBacteria identified Respiratory culture Nom (Unsp spec)Ordered By: Jacinta Ramirez on 05-12-2025 Bacteria identified Cx Nom (Unsp spec)GrowthOSU Henry County HospitalBacteria identified Cx Nom (Unsp spec)Moderate Growth Common oropharyngeal microbesOSToledo HospitalMicroscopic observation Other stain Nom (Unsp spec) Neutrophils, RareOSToledo HospitalMicroscopic observation Other stain Nom (Unsp spec)Contaminating bacteria and epithelials, LIGHTOSToledo HospitalMicroscopic observation Other stain Nom (Unsp spec)Specimen is of very poor quality and results may be compromised suggest recollection if clinically i ndicatedOSU Henry County HospitalOSToledo HospitalCBC AND ELECTRONIC DIFFon [id number] Baso Auto<Normal0.00-0.09[facility] HospitalComment on above:Performed By: #### [id number] #### [facility] (DEFAULT) [address] [place], [place] [address]Uwummixzm/100 WBC (Bld)0.2 %NormalAvita Health System Ontario HospitalComment on above:Performed By: #### [id number] #### [facility] (DEFAULT) [address] [place] [address] 58797AUSL STATUSElectronic DifferentialNormalOhio Blanch[facility] System Bluffton HospitalComment on above:Performed By: #### [id number] #### [facility] (DEFAULT) [address] [place] [address] 01321Kipsntzrqyo (Bld) [#/Vol]0.05 10*3/uLNormal0.00-0.48[facility] HospitalComment on above:Performed By: #### [id number] #### [facility] (DEFAULT) [address] [place] [address] 58958Obxyhaogzjm/100 WBC (Bld)0.9 %[facility] HospitalComment on above:Performed By: #### [id number] #### [facility] (DEFAULT) [address] [place] [address] 28127Lmtoglwomn (Bld) [Volume fraction]29.7 %Low39.6-48.8[facility] HospitalComment on above:Performed By: #### [id number] #### [facility] (DEFAULT) [address] [place] [address] 96880Qlcvvocftd (Bld) [Mass/Vol]10.0 g/dLLow13.4-16.8[facility] HospitalComment on above:Performed By: #### [id number] #### [facility] (DEFAULT) [address] [place] [address] 15399Iyvuangt Grans %1.8 %[facility] HospitalComment on above:Performed By: #### [id number] #### [facility] (DEFAULT) [address] [place] [address] 11241Qzsacyrr Grans Absolute0.10 K/uLHigh<=0.07[facility] HospitalComment on above:Performed By: #### [id number] #### [facility] (DEFAULT) [address] [place] [address] 51047Gwmmeahvmso (Bld) [#/Vol]0.59 10*3/uLLow0.83-3.57[facility] HospitalComment on above:Performed By: #### [id number] #### [facility] (DEFAULT) [address] [place] [address] 70989Gxbjkpdlwdg/100 WBC (Bld)10.7 %NormalAvita Health System Ontario HospitalComment on above:Performed By: #### [id number] #### [facility] (DEFAULT) [address] [place] [address] 73143SJU (RBC) [Entitic vol]92.0 jBItucuz86.0-94.5[facility] HospitalComment on above:Performed By: #### [id number] #### [facility] (DEFAULT) [address] [place] [address] 76784Iran Cell Hgb31.0 qhVyfznc99.1-33.3[facility] HospitalComment on above:Performed By: #### [id number] #### [facility] (DEFAULT) [address] [place] [address] 23183Xkqi Cell Hgb Conc33.7 g/nPXsyksd14.9-36.5[facility] HospitalComment on above:Performed By: #### [id number] #### [facility] (DEFAULT) [address] [place] [address] 66352Prgqgouol (Bld) [#/Vol]0.49 10*3/uLNormal0.24-0.93[facility] HospitalComment on above:Performed By: #### [id number] #### [facility] (DEFAULT) [address] [place] [address] 95462Nmqhrryis/100 WBC (Bld)8.9 %[facility] HospitalComment on above:Performed By: #### [id number] #### [facility] (DEFAULT) [address] [place] [address] 02679Iorvnidip RBC0.0 /100 WBCNormal<=0.2[facility] HospitalComment on above:Performed By: #### [id number] #### [facility] (DEFAULT) [address] [place] [address] 12941Espptqhd mean volume (Bld) [Entitic vol]9.4 fLNormal8.7-12.3 [facility] HospitalComment on above:Performed By: #### [id number] #### [facility] (DEFAULT) [address] [place] [address] 10878Vgogjzfcn (Bld) [#/Vol]215 10*3/nGPfbcdo341-192SucvAvita Health System Ontario HospitalComment on above:Performed By: #### [id number] #### [facility] (DEFAULT) [address] [place] [address] 16681MAS (Bld) [#/Vol]3.23 10*6/uLLow4.38-5.83[facility] HospitalComment on above:Performed By: #### [id number] #### [facility] (DEFAULT) [address] [place] [address] 56855KPI Uxyhxsmemkkt71.5 %High10.9-14.3[facility] HospitalComment on above:Performed By: #### [id number] #### [facility] (DEFAULT) [address] [place] [address] 13547Jugz + Bands Auto77.5 %NormalAvita Health System Ontario HospitalComment on above:Performed By: #### [id number] #### [facility] (DEFAULT) [address] [place] [address] 35760Bjfw + Bands,Absolute Auto4.28 K/uLNormal1.57-6.19[facility] HospitalComment on above:Performed By: #### [id number] #### [facility] (DEFAULT) [address] [place] [address] 26018HJS (Bld) [#/Vol]5.52 10*3/uLNormal3.73-10.10[facility] HospitalComment on above:Performed By: #### [id number] #### [facility] (DEFAULT) [address] [address]YWJGKRLJZOpf 75-48-4312Cdrsdergjc [Mass/Vol]0.78 mg/dLNormal 0.70-1.30[facility] HospitalComment on above:Performed By: #### CREAB #### [facility] (DEFAULT) [address] [address]PWZ/1.73 sq M.predicted among non-blacks MDRD (S/P/Bld) [Vol rate/Area]87 mL/min/{1.73_m2}Normal>=60[facility] HospitalComment on above:Result Comment: Reported eGFR is based on the CKD-EPI 2020 equation using creatinine, age, and sex.Performed By: #### CREAB #### [facility] (DEFAULT) [address] [address]Wuewxlekjm - Chemistry and Chemistry - challengeon 05-12-2025 Creatinine [Mass/Vol]0.78 mg/dL0.70 - 1.30 mg/dLMarymount Hospital Laboratory - Hematology and Cell countson 81-39-1726Fnjjenwcc (Bld) [#/Vol]K/uL 0.00 - 0.09 K/uLOSToledo HospitalBasophils/100 WBC (Bld)0.2 %[facility] HospitalDifferential cell count method Nom (Bld)Electronic DifferentialOSToledo HospitalEosinophils (Bld) [#/Vol]0.05 10*3/uL0.00 - 0.48 K/uLMarymount HospitalEosinophils/100 WBC (Bld)0.9 %[facility] Erythrocyte distribution width (RBC) [Ratio]14.5 %High10.9 - 14.3 %[facility] HospitalHematocrit (Bld) [Volume fraction]29.7 %Low39.6 - 48.8 %[facility] HospitalHemoglobin (Bld) [Mass/Vol]10.0 g/dLLow13.4 - 16.8 g/dLMarymount HospitalImmature granulocytes (Bld) [#/Vol]0.10 10*3/uLHighNINF - 0.07 K/uLMarymount HospitalImmature granulocytes/100 WBC (Bld)1.8 %[facility] HospitalLymphocytes (Bld) [#/Vol]0.59 10*3/uLLow0.83 - 3.57 K/uLMarymount HospitalLymphocytes/100 WBC (Bld)10.7 %[facility] Medical CenterH (RBC) [Entitic mass]31.0 pg26.1 - 33.3 pgMarymount HospitalMCHC (RBC) [Mass/Vol]33.7 g/dL31.9 - 36.5 g/dLMarymount HospitalMCV (RBC) [Entitic vol]92.0 fL79.0 - 94.5 [facility]red HealthcareMonocytes (Bld) [#/Vol]0.49 10*3/uL0.24 - 0.93 K/[facility] Medical CenterMonocytes/100 WBC (Bld)8.9 %[facility] HospitalNeutrophils (Bld) [#/Vol]4.28 10*3/uL1.57 - 6.19 K/[facility] Medical CenterNucleated RBC/100 WBC (Bld) [Ratio]0.0 %[facility] Medical CenterPlatelet mean volume (Bld) [Entitic vol]9.4 fL8.7 - 12.3 [facility] HealthcarePlatelets (Bld) [#/Vol]215 10*3/uL146 - 337 K/[facility] Medical CenterRBC (Bld) [#/Vol]3.23 10*6/uLLowProMedica Fostoria Community Hospitalegmented neutrophils/100 WBC (Bld)77.5 %[facility] HospitalWBC (Bld) [#/Vol]5.52 10*3/uL3.73 - 10.10 K/[facility] Medical CenterNo Panel Informationon [id number]/RH(D) TYPEPositiveProMedica Fostoria Community Hospitalpecimen Expiration 05/15/2025 23:59[facility]ness CentereGFR, CKD-EPI, Male87- PINFOOhio State University Wexner Medical CenterComment on above:Reported eGFR is based on the CKD-EPI 2020 equation using creatinine, age, and sex.Interpretation and review of laboratory resultsOlive View-UCLA Medical CenterInterpretation and review of laboratory resultsAbnoAlameda HospitalTYPE AND SCREENon [id number]/RH(D) TYPE PositiveAultman Orrville HospitalComment on above: Performed By: #### XM #### [facility] (DEFAULT) [address] [place] [address] 50191Gliueysy Fmwzzfafgv80/18/2025 23:59[facility] HospitalComment on above:Performed By: #### XM #### [facility] (DEFAULT) [address] [place] [address] 93951ZXC AND ELECTRONIC DIFFon 71-08-1244Wgp Baso Auto<Normal 0.00-0.09[facility] HospitalComment on above:Performed By: #### HH #### [facility] (DEFAULT) [address] [place] [address] 02371Wjancpnhe/100 WBC (Bld)0.2 %NormalAvita Health System Ontario HospitalComment on above:Performed By: #### HH #### [facility] (DEFAULT) [address] [place] [address] 40498RZQJ STATUSElectronic DifferentialNoMarymount HospitalComment on above:Performed By: #### HH #### [facility] (DEFAULT) [address] [place] [address] 98681Uylmlcycjan (Bld) [#/Vol]0.07 10*3/uLNormal0.00-0.48[facility] HospitalComment on above:Performed By: #### HH #### [facility] (DEFAULT) [address] [place] [address] 37145Ddlkvlijwua/100 WBC (Bld)1.1 %[facility] HospitalComment on above:Performed By: #### HH #### [facility] (DEFAULT) [address] [place] [address] 68813Uopjzfarxv (Bld) [Volume fraction]33.7 %Low39.6-48.8[facility] HospitalComment on above:Performed By: #### HH #### [facility] (DEFAULT) [address] [address]Pswunjagqm (Bld) [Mass/Vol]11.1 g/dLLow13.4-16.8[facility] HospitalComment on above:Result Comment: Warmed to 37C Performed By: #### HH #### [facility] (DEFAULT) [address] [place] [address] 28761Dzwuirfm Grans %2.5 %[facility] HospitalComment on above:Performed By: #### HH #### [facility] (DEFAULT) [address] [place] [address] 04188Folgzocz Grans Absolute0.16 K/uLHigh<=0.07[facility] HospitalComment on above:Performed By: #### HH #### [facility] (DEFAULT) [address] [place] [address] 05286Hwzbesqiwdx (Bld) [#/Vol]0.75 10*3/uLLow0.83-3.57[facility] HospitalComment on above:Performed By: #### HH #### [facility] (DEFAULT) [address] [address]Hpagwkrtscs/100 WBC (Bld)11.5 %[facility] HospitalComment on above:Performed By: #### HH #### [facility] (DEFAULT) [address] [place] [address] 40831JOL (RBC) [Entitic vol]89.9 rDKauucd09.0-94.5[facility] HospitalComment on above:Result Comment: Warmed to 37C Performed By: #### HH #### [facility] (DEFAULT) [address] [place] [address] 72474Qili Cell Hgb29.6 taYtmqpm08.1-33.3[facility] HospitalComment on above:Result Comment: Warmed to 37CPerformed By: #### HH #### [facility] (DEFAULT) [address] [place] [address] 63071Iqke Cell Hgb Conc32.9 g/sGQdhzyn12.9-36.5[facility] HospitalComment on above:Result Comment: Warmed to 37C Performed By: #### HH #### [facility] (DEFAULT) [address] [place] [address] 40017Ezdpqdflg (Bld) [#/Vol]0.63 10*3/uLNormal0.24-0.93[facility] HospitalComment on above:Performed By: #### HH #### [facility] (DEFAULT) [address] [place] [address] 29979Qfahouoew/100 WBC (Bld)9.7 %NormalAvita Health System Ontario HospitalComment on above:Performed By: #### HH #### [facility] (DEFAULT) [address] [place] [address] 51470Sbjnpieja RBC0.0 /100 WBCNormal<=0.2[facility] HospitalComment on above:Performed By: #### HH #### [facility] (DEFAULT) [address] [place] [address] 88271Ouwgifbx mean volume (Bld) [Entitic vol]9.9 fLNormal8.7-12.3 [facility] HospitalComment on above:Performed By: #### HH #### [facility] (DEFAULT) [address] [place] [address] 95448Jwgnyncql (Bld) [#/Vol]211 10*3/mFGhugsu019-096ViaxAvita Health System Ontario HospitalComment on above:Performed By: #### HH #### [facility] (DEFAULT) [address] [place] [address] 68938VDT (Bld) [#/Vol]3.75 10*6/uLLow4.38-5.83[facility] HospitalComment on above:Result Comment: Warmed to 37CPerformed By: #### HH #### [facility] (DEFAULT) [address] [place] [address] 57440RQX Finnfhrvfpsk73.5 %High10.9-14.3[facility] HospitalComment on above:Performed By: #### HH #### [facility] (DEFAULT) [address] [place] [address] 62734Jmmz + Bands Auto75.0 %NormalAvita Health System Ontario HospitalComment on above:Performed By: #### HH #### [facility] (DEFAULT) [address] [place] [address] 30244Ezux + Bands,Absolute Auto4.88 K/uLNormal1.57-6.19[facility] HospitalComment on above:Performed By: #### HH #### [facility] (DEFAULT) [address] [place] [address] 87698DXP (Bld) [#/Vol]6.50 10*3/uLNormal3.73-10.10[facility] HospitalComment on above:Performed By: #### HH #### [facility] (DEFAULT) [address] [place] [address] 59746UVDC 6 (LYTES, BUN CREA)on 27-13-4982Yprbq gap [Moles/Vol]14 mmol/LNormal7-17[facility] HospitalComment on above: Performed By: #### HH #### [facility] (DEFAULT) [address] [place] [address] 77355Cnqsqjnk [Moles/Vol]106 mmol/SSjdcga72-488YaygAvita Health System Ontario HospitalComment on above:Performed By: #### HH #### [facility] (DEFAULT) [address] [place] [address] 31133WI3 [Moles/Vol]22 mmol/KVenixq88-62CwwoAvita Health System Ontario HospitalComment on above:Performed By: #### HH #### [facility] (DEFAULT) [address] [place] [address] 93734Maqzogyrmt [Mass/Vol]0.89 mg/dLNormal0.70-1.30[facility] HospitalComment on above:Performed By: #### HH #### [facility] (DEFAULT) [address] [place] [address] 02992OLU/1.73 sq M.predicted among non-blacks MDRD (S/P/Bld) [Vol rate/Area]83 mL/min/{1.73_m2}Normal>=60[facility] HospitalComment on above:Result Comment: Reported eGFR is based on the CKD-EPI 2020 equation using creatinine, age, and sex.Performed By: #### HH #### [facility] (DEFAULT) [address] [place] [address] 36656Pejwzcaap [Moles/Vol]3.6 mmol/LNormal3.5-5.0[facility] HospitalComment on above:Performed By: #### HH #### [facility] (DEFAULT) [address] [place] [address] 62997Hlrago [Moles/Vol]138 mmol/EBewkby889-232NovkAvita Health System Ontario HospitalComment on above:Performed By: #### HH #### [facility] (DEFAULT) [address] [place] [address] 06082Kunw nitrogen [Mass/Vol]20 mg/dLNormal7-25[facility] HospitalComment on above:Performed By: #### HH #### [facility] (DEFAULT) [address] [place] [address] 55320Dias nitrogen/Creatinine [Mass ratio]22 mg/mgNormalOhio Bl[facility] Health System Bluffton HospitalComment on above:Performed By: #### HH #### [facility] (DEFAULT) [address] [place] [address] 87277OLHXUGP FUNCTION PANELon 82-38-6918Pmmcudx [Mass/Vol]3.3 g/dL Low3.5-5.0[facility] HospitalComment on above:Performed By: #### HH #### [facility] (DEFAULT) [address] [place] [address] 55164JKN [Catalytic activity/Vol]72 U/QXvggeg55-640IjxhAvita Health System Ontario HospitalComment on above:Performed By: #### HH #### [facility] (DEFAULT) [address] [place] [address] 58009IBS [Catalytic activity/Vol]99 U/FPrsq59-85VacvAvita Health System Ontario HospitalComment on above:Performed By: #### HH #### [facility] (DEFAULT) [address] [place] [address] 87500CYZ [Catalytic activity/Vol]34 U/PCtiqbs39-71NbwvAvita Health System Ontario HospitalComment on above:Performed By: #### HH #### [facility] (DEFAULT) [address] [place] [address] 17329Kfxmoeusj [Mass/Vol]0.6 mg/dLNormal<1.5OhAvita Health System Ontario HospitalComment on above:Performed By: #### HH #### [facility] (DEFAULT) [address] [place] [address] 77275Oyeutrwhe.indirect [Mass/Vol]0.2 mg/dLNormal<0.3[facility] HospitalComment on above:Performed By: #### HH #### [facility] (DEFAULT) [address] [place] [address] 60825Ydiipny [Mass/Vol]6.3 g/dLLow6.4-8.3[facility] HospitalComment on above:Performed By: #### HH #### [facility] (DEFAULT) [address] [address]Czeebhszcv - Chemistry and Chemistry - challengeon 05-11-2025 Albumin [Mass/Vol]3.3 g/dLLow3.5 - 5.0 g/dLOSU [facility] HospitalALP [Catalytic activity/Vol]72 U/L32 - 126 U/[facility] HospitalALT [Catalytic activity/Vol]99 U/LHigh10 - 52 U/[facility] HospitalAnion gap [Moles/Vol]14 mmol/L7 - 17 mmol/[facility] HospitalAST [Catalytic activity/Vol]34 U/L10 - 39 U/[facility] HospitalBilirubin [Mass/Vol]0.6 mg/dLNINF - 1.5 mg/dLOSU Henry County HospitalBilirubin.direct [Mass/Vol]0.2 mg/dLNINF - 0.3 mg/dLOSToledo HospitalChloride [Moles/Vol]106 mmol/L98 - 108 mmol/[facility] HospitalCO2 [Moles/Vol]22 mmol/L21 - 31 mmol/[facility] HospitalCreatinine [Mass/Vol]0.89 mg/dL0.70 - 1.30 mg/dLMarymount HospitalPotassium [Moles/Vol]3.6 mmol/L3.5 - 5.0 mmol/[facility] HospitalProtein [Mass/Vol]6.3 g/dLLow6.4 - 8.3 g/dLProMedica Fostoria Community Hospitalodium [Moles/Vol]138 mmol/L135 - 145 mmol/[facility] HospitalUrea nitrogen [Mass/Vol]20 mg/dL7 - 25 mg/dLMarymount HospitalUrea nitrogen/Creatinine [Mass ratio]22 mg/mgOSToledo HospitalLaboratory - Hematology and Cell countson 84-25-1710Cjppilitt (Bld) [#/Vol]K/uL0.00 - 0.09 K/uLMarymount HospitalBasophils/100 WBC (Bld)0.2 %[facility] HospitalDifferential cell count method Nom (Bld)Electronic DifferentialMarymount Hospital Eosinophils (Bld) [#/Vol]0.07 10*3/uL0.00 - 0.48 K/[facility] Eosinophils/100 WBC (Bld)1.1 %OSToledo HospitalErythrocyte distribution width (RBC) [Ratio]14.5 %High10.9 - 14.3 %[facility] HospitalHematocrit (Bld) [Volume fraction]33.7 %Low39.6 - 48.8 %[facility] HospitalHemoglobin (Bld) [Mass/Vol]11.1 g/dLLow13.4 - 16.8 g/dLMarymount HospitalComment on above:Warmed to 37CImmature granulocytes (Bld) [#/Vol]0.16 10*3/uLHighNINF - 0.07 K/[facility] Medical CenterImmature granulocytes/100 WBC (Bld)2.5 %[facility] HospitalLymphocytes (Bld) [#/Vol]0.75 10*3/uLLow0.83 - 3.57 K/[facility] Medical CenterLymphocytes/100 WBC (Bld)11.5 %[facility] MCH (RBC) [Entitic mass]29.6 pg26.1 - 33.3 pgMarymount HospitalComment on above:Warmed to 37CMCHC (RBC) [Mass/Vol]32.9 g/dL31.9 - 36.5 g/dLMarymount HospitalComment on above:Warmed to 37CMCV (RBC) [Entitic vol]89.9 fL79.0 - 94.5 [facility] HealthcareComment on above:Warmed to 37CMonocytes (Bld) [#/Vol]0.63 10*3/uL0.24 - 0.93 /[facility] Medical CenterMonocytes/100 WBC (Bld)9.7 %[facility] HospitalNeutrophils (Bld) [#/Vol]4.88 10*3/uL1.57 - 6.19 K/uLMarymount HospitalNucleated RBC/100 WBC (Bld) [Ratio]0.0 %NINF [facility] HospitalPlatelet mean volume (Bld) [Entitic vol]9.9 fL8.7 - 12.3 [facility] HealthcarePlatelets (Bld) [#/Vol]211 10*3/uL146 - 337 K/uL [facility] HospitalRBC (Bld) [#/Vol]3.75 10*6/uLLowMarymount HospitalComment on above:Warmed to 37CSegmented neutrophils/100 WBC (Bld)75.0 %[facility] HospitalWBC (Bld) [#/Vol]6.50 10*3/uL3.73 - 10.10 K/uLMarymount HospitalNo Panel Informationon [id number] and review of laboratory resultsAbOrthopaedic Hospital eGFR, CKD-EPI, Male83- [facility] ToledoComment on above:Reported eGFR is based on the CKD-EPI 2020 equation using creatinine, age, and sex. Interpretation and review of laboratory resultsAbVencor HospitalC REACTIVE PROTEINon [id number] [Mass/Vol]37.48 mg/L High<10.00[facility] HospitalComment on above:Performed By: #### HH #### [facility] (DEFAULT) [address] [place], [place] [address]ITATKWJPYIrx 79-49-8131Chveaaipeo [Mass/Vol]0.85 mg/dLNormal 0.70-1.30[facility] HospitalComment on above:Performed By: #### HH #### [facility] (DEFAULT) [address] [place], [place] [address]JZZ/1.73 sq M.predicted among non-blacks MDRD (S/P/Bld) [Vol rate/Area]85 mL/min/{1.73_m2}Normal>=60[facility] HospitalComment on above:Result Comment: Reported eGFR is based on the CKD-EPI 2020 equation using creatinine, age, and sex.Performed By: #### HH #### [facility] (DEFAULT) [address] [place] [address] 43665RJFATPNJIO & HEMATOCRITon 61-11-3275Exxyhuehkm (Bld) [Volume fraction]34.5 %Low39.6-48.8[facility] HospitalComment on above:Performed By: #### HH #### [facility] (DEFAULT) [address] [place] [address] 62716Qpnvlbbmah (Bld) [Mass/Vol]11.0 g/dLLow13.4-16.8[facility] HospitalComment on above:Result Comment: Warmed to 37C Performed By: #### HH #### [facility] (DEFAULT) [address] [place] [address] 55118QBWIL RESPIRATORY CULTURE, BACTERIALon 45-87-6573Knwvzdqg identified Cx Nom (Unsp spec)[facility] Comment on above:Result Comment: Growth 4471 Moderate Growth Common oropharyngeal microbesPerformed By: #### RES #### [facility] (DEFAULT) [address] [place] [address] 63352Hlzojhlucpe observation Gram stain Nom (Unsp spec)[facility] HospitalComment on above:Result Comment: Neutrophils, Rare Contaminating bacteria and epithelials, LIGHT Specimen is of very poor quality and results may be compromised suggest recollection if clinically indicatedPerformed By: #### RES #### [facility] (DEFAULT) [address] [place] [address] [id number] - Chemistry and Chemistry - challengeon 05-10-2025 Creatinine [Mass/Vol]0.85 mg/dL0.70 - 1.30 mg/dLOSU Henry County HospitalCRP High sensitivity method [Mass/Vol]37.48 mg/LHighNINF - 10.00 mg/L[facility] HospitalLaboratory - Drug toxicologyon 61-20-5757Srcnnzthnv trough [Mass/Vol]13.9 ug/mLMarymount HospitalLaboratory - Hematology and Cell countson 23-03-9786Qwjfzruvvd (Bld) [Volume fraction]34.5 %Low39.6 - 48.8 %[facility] HospitalHemoglobin (Bld) [Mass/Vol]11.0 g/dLLow13.4 - 16.8 g/dLMarymount HospitalComment on above:Warmed to 37CESR (Bld) [Velocity]120 mm/h HighNINFMarymount HospitalNo Panel Informationon 51-62-5734Jbmzpwnagwqiri and review of laboratory resultsAbOrthopaedic HospitalInterpretation and review of laboratory resultsNoAlameda HospitalInterpretation and review of laboratory resultsAbOrthopaedic HospitaleGFR, CKD-EPI, Male85- PINMorrow County HospitalComment on above:Reported eGFR is based on the CKD-EPI 2020 equation using creatinine, age, and sex.Interpretation and review of laboratory resultsAbSelect Medical Cleveland Clinic Rehabilitation Hospital, BeachwoodInterpretation and review of laboratory resultsUkiah Valley Medical CenterEDIMENTATION RATE, AUTOMATEDon 22-09-6627YIR Jmwwslnjai364 mm/hrHigh<30 [facility] HospitalComment on above:Performed By: #### HH #### [facility] (DEFAULT) [address] [address]NYNIBBGJRE LEVEL, TROUGH (PRE DRUG LEVEL)on 05-10-2025 Vancomycin, Rymmhr13.9 mcg/mLNormalTherapeutic Range: 10.0-20.0 mcg/mLAvita Health System Ontario HospitalComment on above:Order Comment: Please draw level at specified interval PRIOR to next dose.Performed By: #### HEP3B #### [facility] (DEFAULT) [address] [place] [address] 52348DKKQDRMsk 20-17-7836Vwzrgju [Mass/Vol]9.1 mg/dLNormal8.6-10.5 [facility] HospitalComment on above:Performed By: #### MGO, HFP, CA, CHM7, IPB #### [facility] (DEFAULT) [address] [place] [address] 82837CIY AND ELECTRONIC DIFFon 52-53-0269Bmy Baso Auto<Normal 0.00-0.09[facility] HospitalComment on above:Performed By: #### HH #### [facility] (DEFAULT) [address] [place] [address] 72833Aoq Eos Auto<Normal0.00-0.48[facility] HospitalComment on above:Performed By: #### HH #### [facility] (DEFAULT) [address] [place] [address] 88281Ghcjpyrwx/100 WBC (Bld)0.2 %[facility] HospitalComment on above:Performed By: #### HH #### [facility] (DEFAULT) [address] [place] [address] 51138HXLE STATUSElectronic DifferentialNormalOSuburban Community Hospital & Brentwood HospitalComment on above:Performed By: #### HH #### [facility] (DEFAULT) [address] [place] [address] 72412Camgjzsicgn/100 WBC (Bld)0.2 %[facility] HospitalComment on above:Performed By: #### HH #### [facility] (DEFAULT) [address] [place] [address] 87919Wygvehlqka (Bld) [Volume fraction]33.0 %Low39.6-48.8[facility] HospitalComment on above:Performed By: #### HH #### [facility] (DEFAULT) [address] [place] [address] 81385Mpvgpilrao (Bld) [Mass/Vol]10.9 g/dLLow13.4-16.8[facility] HospitalComment on above:Performed By: #### HH #### [facility] (DEFAULT) [address] [place] [address] 93046Mdhwtdln Grans %1.4 %NormalAvita Health System Ontario HospitalComment on above:Performed By: #### HH #### [facility] (DEFAULT) [address] [place] [address] 90280Fjtzypqh Grans Absolute0.09 K/uLHigh<=0.07[facility] HospitalComment on above:Performed By: #### HH #### [facility] (DEFAULT) [address] [place] [address] 79560Xoovlpmeqev (Bld) [#/Vol]0.65 10*3/uLLow0.83-3.57[facility] HospitalComment on above:Performed By: #### HH #### [facility] (DEFAULT) [address] [place] [address] 40448Nhogtznfipi/100 WBC (Bld)10.1 %NormalAvita Health System Ontario HospitalComment on above:Performed By: #### HH #### [facility] (DEFAULT) [address] [address]ZON (RBC) [Entitic vol]91.9 bWPtrbxt52.0-94.5[facility] HospitalComment on above:Performed By: #### HH #### [facility] (DEFAULT) [address] [place] [address] 68888Aqcg Cell Hgb30.4 txQricfc90.1-33.3[facility] HospitalComment on above:Performed By: #### HH #### [facility] (DEFAULT) [address] [place] [address] 70471Sbzd Cell Hgb Conc33.0 g/dVBsastg39.9-36.5[facility] HospitalComment on above:Performed By: #### HH #### [facility] (DEFAULT) [address] [place] [address] 60657Bniyrlkuv (Bld) [#/Vol]0.71 10*3/uLNormal0.24-0.93[facility] HospitalComment on above:Performed By: #### HH #### [facility] (DEFAULT) [address] [place] [address] 84639Ruulurrsf/100 WBC (Bld)11.1 %NormalAvita Health System Ontario HospitalComment on above:Performed By: #### HH #### [facility] (DEFAULT) [address] [place] [address] 09786Kzaaekftj RBC0.0 /100 WBCNormal<=0.2[facility] HospitalComment on above:Performed By: #### HH #### [facility] (DEFAULT) [address] [place] [address] 98386Lesokzft mean volume (Bld) [Entitic vol]9.2 fLNormal8.7-12.3 [facility] HospitalComment on above:Performed By: #### HH #### [facility] (DEFAULT) [address] [place] [address] 13304Btnvuutem (Bld) [#/Vol]232 10*3/cYJddnuf967-492HeadAvita Health System Ontario HospitalComment on above:Performed By: #### HH #### [facility] (DEFAULT) [address] [place] [address] 72618BSK (Bld) [#/Vol]3.59 10*6/uLLow4.38-5.83[facility] HospitalComment on above:Performed By: #### HH #### [facility] (DEFAULT) [address] [place] [address] 31080DYD Zjprvfmbrrlj45.6 %High10.9-14.3[facility] HospitalComment on above:Performed By: #### HH #### [facility] (DEFAULT) [address] [place] [address] 58397Auln + Bands Auto77.0 %NormalAvita Health System Ontario HospitalComment on above:Performed By: #### HH #### [facility] (DEFAULT) [address] [place] [address] 79618Uhfi + Bands,Absolute Auto4.94 K/uLNormal1.57-6.19[facility] HospitalComment on above:Performed By: #### HH #### [facility] (DEFAULT) [address] [place] [address] 93405YUD (Bld) [#/Vol]6.41 10*3/uLNormal3.73-10.10[facility] HospitalComment on above:Performed By: #### HH #### [facility] (DEFAULT) [address] [place] [address] 88884DGVL 7 (LYTES,BUN,CREA,GLUC)on 32-53-8254Trdjg gap [Moles/Vol] 14 mmol/LNormal7-17[facility] HospitalComment on above: Performed By: #### MGO, HFP, CA, CHM7, IPB #### [facility] (DEFAULT) [address] [place] [address] 39921Jckvbibt [Moles/Vol]107 mmol/CByswqp56-789PtutAvita Health System Ontario HospitalComment on above:Performed By: #### MGO, HFP, CA, CHM7, IPB #### [facility] (DEFAULT) [address] [place] [address] 85256WZ8 [Moles/Vol]22 mmol/BTpvldo38-30IggeAvita Health System Ontario HospitalComment on above:Performed By: #### MGO, HFP, CA, CHM7, IPB #### [facility] (DEFAULT) [address] [place] [address] 12324Dfqimancbi [Mass/Vol]0.92 mg/dLNormal0.70-1.30[facility] HospitalComment on above:Performed By: #### MGO, HFP, CA, CHM7, IPB #### [facility] (DEFAULT) [address] [place] [address] 68732VPB/1.73 sq M.predicted among non-blacks MDRD (S/P/Bld) [Vol rate/Area]81 mL/min/{1.73_m2}Normal>=60[facility] HospitalComment on above:Result Comment: Reported eGFR is based on the CKD-EPI 2020 equation using creatinine, age, and sex.Performed By: #### MGO, HFP, CA, CHM7, IPB #### [facility] (DEFAULT) [address] [place] [address] 41747Sypjckv [Mass/Vol]100 mg/dLNormalNonfastin-179 mg/dL; Fastin-99[facility] HospitalComment on above: Performed By: #### MGJerry, HFP, CA, CHM7, IPB #### [facility] (DEFAULT) [address] [place] [address] 04904Jubbhaydcz [Osmolality]296 mosm/ssCqraeo848-582NjjnAvita Health System Ontario HospitalComment on above:Performed By: #### MGJerry, HFP, CA, CHM7, IPB #### [facility] (DEFAULT) [address] [place] [address] 57087Jvwtopxku [Moles/Vol]4.2 mmol/LNormal3.5-5.0[facility] HospitalComment on above:Performed By: #### MGO, HFP, CA, CHM7, IPB #### [facility] (DEFAULT) [address] [place] [address] 96516Evkyag [Moles/Vol]139 mmol/ODlobnu977-400BjbhAvita Health System Ontario HospitalComment on above:Performed By: #### MGO, HFP, CA, CHM7, IPB #### [facility] (DEFAULT) [address] [place] [address] 94400Seal nitrogen [Mass/Vol]25 mg/dLNormal7-25[facility] HospitalComment on above:Performed By: #### MGO, HFP, CA, CHM7, IPB #### [facility] (DEFAULT) [address] [place] [address] 41170Wzlt nitrogen/Creatinine [Mass ratio]27 mg/mgNoMarymount HospitalComment on above:Performed By: #### MGO, HFP, CA, CHM7, IPB #### [facility] (DEFAULT) [address] [place] [address] 13580Logdcjq hepatitis differentiation between hepatitis B and C virus panelOrdered By: Cheli Ruiz on 13-38-2508SCT core IgG+IgM Ql (S) NegativeNegativeOSU [facility] County HospitalHBV surface Ab IA Ql (S)Negative NegativeOSU Henry County HospitalHBV surface Ag Ql (S)NegativeNegativeOSU [facility] HospitalHCV Ab Ql (S)NegativeNegativeOSToledo Hospital Interpretation and review of laboratory resultsNormalOThe Rehabilitation Hospital of Tinton FallsHEPATIC FUNCTION PANELon 77-44-1750Fzbhvvy [Mass/Vol] 3.5 g/dLNormal3.5-5.0[facility] HospitalComment on above:Performed By: #### MGO, HFP, CA, CHM7, IPB #### [facility] (DEFAULT) [address] [place] [address] 87188NFL [Catalytic activity/Vol]79 U/QZkrnbk09-449WnnwAvita Health System Ontario HospitalComment on above:Performed By: #### MGO, HFP, CA, CHM7, IPB #### [facility] (DEFAULT) [address] [place] [address] 04762PHU [Catalytic activity/Vol]180 U/UHxld28-89WqxgAvita Health System Ontario HospitalComment on above:Performed By: #### MGO, HFP, CA, CHM7, IPB #### [facility] (DEFAULT) [address] [place] [address] 78574WSY [Catalytic activity/Vol]125 U/QVcfr20-61RlacAvita Health System Ontario HospitalComment on above:Performed By: #### MGO, HFP, CA, CHM7, IPB #### [facility] (DEFAULT) [address] [place] [address] 84964Kdwczmghn [Mass/Vol]0.7 mg/dLNormal<1.5[facility] HospitalComment on above:Performed By: #### MGO, HFP, CA, CHM7, IPB #### [facility] (DEFAULT) [address] [place] [address] 95035Qxznkxqzq.indirect [Mass/Vol]0.1 mg/dLNormal<0.3[facility] HospitalComment on above:Result Comment: Specimen hemolyzed. Direct bilirubin results may be falsely decreased. Interpret within the clinical context.Performed By: #### MGO, HFP, CA, CHM7, IPB #### [facility] (DEFAULT) [address] [place] [address] 30347Nciymno [Mass/Vol]6.6 g/dLNormal6.4-8.3[facility] HospitalComment on above:Performed By: #### MGO, HFP, CA, CHM7, IPB #### [facility] (DEFAULT) [address] [place] [address] 62862NDJBFKDRP BATTERY, CHRONICon 87-73-4979Cid B Core Ab,Total (IgG+IgM)NegativeNormalNegMercy Health Lorain Hospital Comment on above:Performed By: #### HEP3B #### [facility] (DEFAULT) [address] [place] [address] 10724Xmc B Surface AbNegativeNormalNegativeAvita Health System Ontario HospitalComment on above:Performed By: #### HEP3B #### [facility] (DEFAULT) [address] [place] [address] 27031Xecjhlhke B Surface AgNegativeNormalNegativeAvita Health System Ontario HospitalComment on above:Performed By: #### HEP3B #### [facility] (DEFAULT) [address] 709[address]Xwzgktsnl C AntibodyNegativeNormalNegativeAvita Health System Ontario HospitalComment on above:Performed By: #### HEP3B #### [facility] (DEFAULT) [address] [place] [address] 85667Soblmyxisw - Chemistry and Chemistry - challengeon 05-09-2025 Albumin [Mass/Vol]3.5 g/dL3.5 - 5.0 g/dLOSToledo HospitalALP [Catalytic activity/Vol]79 U/L32 - 126 U/[facility] HospitalALT [Catalytic activity/Vol]180 U/LHigh10 - 52 U/[facility] HospitalAnion gap [Moles/Vol]14 mmol/L7 - 17 mmol/[facility] HospitalAST [Catalytic activity/Vol]125 U/LHigh10 - 39 U/[facility] HospitalBilirubin [Mass/Vol] 0.7 mg/dLNINF - 1.5 mg/dLOSToledo HospitalBilirubin.direct [Mass/Vol]0.1 mg/dLNINF - 0.3 mg/dLMarymount HospitalComment on above:Specimen hemolyzed. Direct bilirubin results may be falsely decreased. Interpret within the clinical context.Chloride [Moles/Vol]107 mmol/L98 - 108 mmol/[facility] HospitalCO2 [Moles/Vol]22 mmol/L21 - 31 mmol/[facility] Creatinine [Mass/Vol]0.92 mg/dL0.70 - 1.30 mg/dLMarymount HospitalGlucose [Mass/Vol]100 mg/dL70 - 179 mg/dLMarymount HospitalOsmolality Calc [Osmolality]296[facility] HospitalPhosphate [Mass/Vol]3.2 mg/dL2.2 - 4.6 mg/dLMarymount HospitalPotassium [Moles/Vol]4.2 mmol/L3.5 - 5.0 mmol/[facility] HospitalProtein [Mass/Vol]6.6 g/dL6.4 - 8.3 g/dLOSKettering Health Behavioral Medical Centerodium [Moles/Vol]139 mmol/L135 - 145 mmol/LOSU [facility] HospitalUrea nitrogen [Mass/Vol]25 mg/dL7 - 25 mg/dLOSToledo HospitalUrea nitrogen/Creatinine [Mass ratio]27 mg/mgOSToledo HospitalCalcium [Mass/Vol]9.1 mg/dL8.6 - 10.5 mg/dLMarymount HospitalMagnesium [Mass/Vol] 2.0 mg/dL1.6 - 2.6 mg/dLMarymount HospitalLaboratory - CoagulationOrdered By: Amy Watson on 27-30-9166mAEE Coag (PPP) [Time]23.6 sLowOSToledo HospitalComment on above:Specimen integrity checked.INR Coag (Bld) [Relative time]1.1 {INR}0.9 - 1.1[facility] HospitalPT Coag (PPP) [Time] 14.4 [facility] CenterLaboratory - Hematology and Cell countson 41-17-6757Ckzgzutcl (Bld) [#/Vol]K/uL0.00 - 0.09 K/uLMarymount Hospital Basophils/100 WBC (Bld)0.2 %[facility] HospitalDifferential cell count method Nom (Bld)Electronic DifferentialMarymount HospitalEosinophils (Bld) [#/Vol]K/uL0.00 - 0.48 K/uLMarymount HospitalEosinophils/100 WBC (Bld)0.2 %[facility] HospitalErythrocyte distribution width (RBC) [Ratio] 14.6 %High10.9 - 14.3 %[facility] HospitalHematocrit (Bld) [Volume fraction]33.0 %Low39.6 - 48.8 %[facility] HospitalHemoglobin (Bld) [Mass/Vol]10.9 g/dLLow13.4 - 16.8 g/dLMarymount HospitalImmature granulocytes (Bld) [#/Vol]0.09 10*3/uLHighNINF - 0.07 K/[facility]itus Medical CenterImmature granulocytes/100 WBC (Bld)1.4 %[facility] Lymphocytes (Bld) [#/Vol]0.65 10*3/uLLow0.83 - 3.57 K/[facility] Medical CenterLymphocytes/100 WBC (Bld)10.1 %[facility] Medical CenterH (RBC) [Entitic mass]30.4 pg26.1 - 33.3 pgOSBucyrus Community HospitalHC (RBC) [Mass/Vol]33.0 g/dL31.9 - 36.5 g/dLMarymount HospitalMCV (RBC) [Entitic vol]91.9 fL79.0 - 94.5 Kindred HealthcareMonocytes (Bld) [#/Vol]0.71 10*3/uL0.24 - 0.93 K/[facility] Medical CenterMonocytes/100 WBC (Bld)11.1 %[facility] HospitalNeutrophils (Bld) [#/Vol]4.94 10*3/uL1.57 - 6.19 /[facility] Medical CenterNucleated RBC/100 WBC (Bld) [Ratio]0.0 %[facility] Platelet mean volume (Bld) [Entitic vol]9.2 fL8.7 - 12.3 [facility]red HealthcarePlatelets (Bld) [#/Vol]232 10*3/uL146 - 337 KUniversity Hospitals Geaug[facility] Medical Center RBC (Bld) [#/Vol]3.59 10*6/uLLowProMedica Fostoria Community Hospitalegmented neutrophils/100 WBC (Bld)77.0 %[facility] HospitalWBC (Bld) [#/Vol]6.41 10*3/uL3.73 - 10.10 [facility] WestMAGNESIUMon 17-93-1531Whzuharxe [Mass/Vol]2.0 mg/dLNormal1.6-2.6[facility] Comment on above:Performed By: #### MGO, HFP, CA, CHM7, IPB #### [facility] (DEFAULT) [address] [place] [address] 34007Ow Panel InformationOrdered By: Amy Watson on 05-09-2025 Interpretation and review of laboratory resultsAbVencor HospitalNo Panel Informationon 97-06-6987pTWX, CKD-EPI, Male81- PINFOOhio State University Wexner Medical CenterComment on above:Reported eGFR is based on the CKD-EPI 2020 equation using creatinine, age, and sex.Interpretation and review of laboratory resultsNoKettering Health Washington TownshipInterpretation and review of laboratory resultsAbOrthopaedic Hospital Interpretation and review of laboratory resultsNoSHC Specialty HospitalInterpretation and review of laboratory resultsAbnormal [facility] Wellness CenterPHOSPHATE, INORGANICon 30-85-9400Cozgzddptmf4.2 mg/dLNormal2.2-4.6[facility] HospitalComment on above:Performed By: #### HH #### [facility] (DEFAULT) [address] [place] [address] 59862WJ,INR,PTTon 31-07-1424iVTP Coag (Bld) [Time]23.6 sLow 24.0-34.3[facility] HospitalComment on above:Result Comment: Specimen integrity checked.Performed By: #### HH #### [facility] (DEFAULT) [address] [place] [address] 47616DAO Coag (PPP) [Relative time]1.1 {INR}Normal0.9-1.1[facility] HospitalComment on above:Performed By: #### HH #### [facility] (DEFAULT) [address] [place] [address] 22266MA Coag (PPP) [Time]14.4 sHigh11.9-14.2[facility] HospitalComment on above:Performed By: #### HH #### [facility] (DEFAULT) [address] [place] [address] 93094KW ABDOMEN RUQ/LIVER/GBon 91-66-4498DN ABDOMEN RUQ/LIVER/GB EXAM: US ABDOMEN RUQ/LIVER/GB, 05/09/2025 [...] 1. Hepatic steatosis. 2. Gallstones without cholecystitis. [facility] HospitalUS Abdomen RUQon 02-90-8514ZFOZEDRKOL: 1. Hepatic steatosis. 2. Gallstones without cholecystitis. RADIOLOGY EXAM: US ABDOMEN RUQ/LIVER/GB, 05/09/2025 07:21 AM [...] is no ascites in the visualized abdomen. RADIOLOGYKayla Escobedo MD - 05/09/2025 EXAM: US ABDOMEN [...] 1. Hepatic steatosis. 2. Gallstones without cholecystitis. [facility] HospitalRadiology Study observation (narrative)OSToledo HospitalUS Abdomen RUQOrdered By: Kayla Escobedo on 87-65-9202[facility] Work Phone: basic Metabolic Panelon 68-60-3758Ppgej gap [Moles/Vol]10.8 mmol/LNormal6.0-15.0The [facility] Physician GroupComment on above:Performed By: #### AERC, GS #### [place] [address] USACalcium [Mass/Vol]9.0 mg/dLNormal8.6-10.3The [facility] Physician GroupComment on above:Performed By: #### AERC, GS #### [facility] [address] [place] [address] USAChloride [Moles/Vol]106 mmol/MWbwnxy29-059Lhn [facility] Physician GroupComment on above:Performed By: #### AERC, GS #### [place] [address] USACO2 [Moles/Vol]23.9 mmol/SAsuhkz40.0-31.0The [facility] Physician GroupComment on above:Performed By: #### AERC, GS #### [place] [address] USACreatinine [Mass/Vol]1.01 mg/dLNormal0.70-1.30The [facility] Physician GroupComment on above:Performed By: #### AERC, GS #### [place] [address] USACreatinine Clr Calc Jpckwlmu16.59NormalThe [facility] Physician GroupComment on above:Result Comment: PERFORMED BY: [place] [address] PATHOLOGIST CONTRACT NEGOTIATOR MAXIM HERNANDEZ M.D.Performed By: #### AERC, GS #### [place] [address] USAGFR/1.73 sq M.predicted MDRD (S/P/Bld) [Vol rate/Area] mL/min/{1.73_m2}NormalThe [facility] Physician GroupComment on above:Performed By: #### AERC, GS #### [facility] [address] [place] [address] USAGlucose [Mass/Vol]135 mg/xHHqpy86-783Olf [facility] Physician GroupComment on above:Result Comment: Random Glucose Reference Range is dependent on time and content of last meal. Glucose of more than 200 mg/dL in a nonstressed, ambulatory subject supports the diagnosis of Diabetes Mellitus. ADA recommended reference rangePerformed By: #### AERC, GS #### [facility] [address] [place] [address] USAPotassium [Moles/Vol]3.7 mmol/LNormal3.5-5.1The [facility] Physician GroupComment on above:Performed By: #### AERC, GS #### [place] [address] USASodium [Moles/Vol]137 mmol/LEjzkqt937-089Bzn [facility] Physician GroupComment on above:Performed By: #### AERC, GS #### [place] [id number] USAUrea nitrogen [Mass/Vol]27 mg/dLHigh7-25The [facility] Physician GroupComment on above:Performed By: #### AERC, GS #### [place] [id number] USALon 05-08-2025 Specimen: [id number] Received: 05/08/25 Status: ALTON Alvarez Num: [id number] Spec Type: Impression Subm Dr: Ben Reddy DO Tissues: PATHPER Procedures: PATHREVIEW Age/ Patient Sex Location Account Attending Physician Tristin Powell 85/M 4P [id number] Ben Reddy DO SPEC NUM: [id number] RECD: 05/08/25 STATUS: ALTON ALVAREZ NUM: [id number] ANNA: 05/08/25 DR: Ben Reddy DO ENTERED: 05/08/[address]: BRITTANI TYPE: Impression DEPT: MA ORDERED: PATHREVIEW ORDERED: PATHREVIEW Pathologist Review PERIPHERAL SMEAR REVIEW Review of the smear confirms the CBC results RBCs: Mildly reduced in number, moderate anisopoikilocytosis, rare schistocytes noted, nucleated cells noted WBCs: Reduced in number with absolute lymphopenia Platelets: Normal in number and morphology CPT: 97614 Specimen: [id number] Received: 05/08/25 Status: ALTON Alvarez Num: [id number] Spec Type: Impression Subm Dr: Ben Reddy DO Tissues: PATHPER Procedures: PATHREVIEW Patient: Tristin Powell [id number] (Continued) Signed (signature on file) Daniel Quezada Jr., MD 05/08/25 1010NoFirstHealth [facility] Physician GroupPartial Thromboplastin Timeon 46-83-9998wPBJ Thelma (Bld) [Time]19.8 sLow25.1-36.5The [facility] Comment on above:Result Comment: A hematocrit value greater than 55% may lead to inaccurate results in coagulation testing. Patients having hematocrit values >55% require a special collection tube for coagulation studies. Please contact the laboratory at [phone] for redraw instructions. PERFORMED BY: [facility] [place] [id number] PATHOLOGIST CONTRACT NEGOTIATOR MAXIM HERNANDEZ M.D.Performed By: #### PTT, PT ####[address] [address] USAPathologist Slide Reviewon 05-08-2025 Pathologist Slide ReviewOrdered Path ReviewJoe DiMaggio [facility] Physician [facility] Comment on above:Result Comment: PERFORMED BY: [place] [address] PATHOLOGIST CONTRACT NEGOTIATOR MAXIM HERNANDEZ M.D.Performed By: #### AERC, GS #### [place] [id number] USAProthrombin Time INRon 14-78-9113UQR Coag (PPP) [Relative time]1.1 {INR}NormalThe [facility] Physician GroupComment on above:Result Comment: INR Therapeutic Range A) Pre- and [...] patients with mechanical heart valves: 3 - 4.5Performed By: #### PTT, PT ####[place] [id number] USAPT Coag (PPP) [Time]13.0 sHigh9.0-12.9The [facility] Physician GroupComment on above:Result Comment: A hematocrit value greater than 55% may lead to inaccurate results in coagulation testing. Patients having hematocrit values >55% require a special collection tube for coagulation studies. Please contact the laboratory at [phone] for redraw instructions.Performed By: #### PTT, PT ####[place] [id number] USAScan and CBCon 98-57-2031Jvrmjafibdez Ql (Bld) SlightNoFirstHealth [facility] Hospital Physician GroupComment on above:Performed By: #### AERC, GS #### [place] [id number] USABasophils (Bld) [#/Vol]0.0 10*3/uLNormal0.0-0.2The [facility] Physician GroupComment on above:Performed By: #### AERC, GS #### [place] [address] USABasophils/100 WBC (Bld)0.2 %Normal.The [facility] Physician GroupComment on above:Performed By: #### AERC, GS #### [place] [address] USACrenated RBCModerateNormalThe [facility] Comment on above:Performed By: #### AERC, GS #### [place] [address] USAEosinophils (Bld) [#/Vol]0.1 10*3/uLNormal0.0-0.45The [facility] Physician GroupComment on above:Performed By: #### AERC, GS #### [place] [address] USAEosinophils/100 WBC (Bld)1.9 %Normal.The [facility] Physician GroupComment on above:Performed By: #### AERC, GS #### [place] [address] USAErythrocyte distribution width (RBC) [Ratio]15.5 %High 12.0-14.8The [facility] Physician GroupComment on above:Performed By: #### AERC, GS #### [place] [address] USAHematocrit (Bld) [Volume fraction]30.1 %Low38.8-50.0The [facility] Physician GroupComment on above:Performed By: #### AERC, GS #### [place] [address] USAHemoglobin (Bld) [Mass/Vol]10.9 g/dLLow13.0-17.0The [facility] Physician GroupComment on above:Performed By: #### AERC, GS #### [place] [address] USALymphocytes (Bld) [#/Vol]0.4 10*3/uLLow1.00-4.8The [facility] Physician GroupComment on above:Performed By: #### AERC, GS #### [place] [address] USALymphocytes/100 WBC (Bld)11.1 %Normal.The [facility] Physician GroupComment on above:Performed By: #### AERC, GS #### [place] [address] USAH (RBC) [Entitic mass]33.9 bhFjrlbu52.5-35.2The [facility] Physician GroupComment on above:Performed By: #### AERC, GS #### [place] [address] USAMCV (RBC) [Entitic vol]94.1 mSHshekw17.5-101The [facility] Physician GroupComment on above:Performed By: #### AERC, GS #### [place] [address] USAMean Corpuscular HGB Conc36.0 g/uNFzcz32.5-35.6The [facility] Physician GroupComment on above:Performed By: #### AERC, GS #### [place] [address] USAMonocytes (Bld) [#/Vol]0.5 10*3/uLNormal0.0-0.8The [facility] Physician GroupComment on above:Performed By: #### AERC, GS #### [place] [address] USAMonocytes/100 WBC (Bld)14.5 %Normal.The [facility] Physician GroupComment on above:Performed By: #### AERC, GS #### [place] [address] USANeutrophils (Bld) [#/Vol]2.7 10*3/uLNormal1.8-7.7The [facility] Physician GroupComment on above:Performed By: #### AERC, GS #### [place] [address] USANeutrophils/100 WBC (Bld)72.3 %Normal.The [facility] Physician GroupComment on above:Performed By: #### AERC, GS #### [place] [address] USANRBC%0.9 /100{WBC}High0-0.5The [facility]ician Group Comment on above:Performed By: #### AERC, GS #### [place] [address] USAOvalocytesModerateNormSebastian [facility] Physician [facility] Comment on above:Performed By: #### AERC, GS #### [place] [address] USAPlatelet EstimateNormalNormalNormSebastian River [facility] Physician GroupComment on above:Performed By: #### AERC, GS #### [place] [address] USAPlatelet mean volume (Bld) [Entitic vol]7.2 fLNormal 6.6-10.1The [facility] Physician GroupComment on above:Performed By: #### AERC, GS #### [place] [address] USAPlatelet MorphologyNormalNormalNormSebastian [facility] Physician GroupComment on above:Result Comment: PERFORMED BY: [place] [address] PATHOLOGIST CONTRACT NEGOTIATOR MAXIM HERNANDEZ M.D.Performed By: #### AERC, GS #### [place] [address] USAPlatelets (Bld) [#/Vol]231 10*3/nOEzrkfb535-036Anh [facility] Physician GroupComment on above:Performed By: #### AERC, GS #### [place] [address] USAPoikilocytosisModerateNormSebastian River [facility] Center Physician Group Comment on above:Performed By: #### AERC, GS #### [place] [address] USARBC (Bld) [#/Vol]3.20 10*6/uLLow3.90-5.60The [facility] Physician GroupComment on above:Performed By: #### AERC, GS #### [place] [address] USAWBC (Bld) [#/Vol]3.7 10*3/uLLow4.1-10.5The [facility] Physician GroupComment on above:Performed By: #### AERC, GS #### [place] [address] USAWhite Blood Count3.7 [CFU]/mLLow4.1-10.5The [facility] Physician GroupComment on above:Performed By: #### AERC, GS #### [place] [address] USABasic Metabolic Panelon 67-13-0639Jqnhz gap [Moles/Vol] 13.0 mmol/LNormal6.0-15.0The [facility] Physician GroupComment on above:Performed By: #### BMP, CBC #### [place] [address] USACalcium [Mass/Vol]8.7 mg/dLNormal8.6-10.3The [facility] Physician GroupComment on above:Performed By: #### BMP, CBC #### [place] [address] USAChloride [Moles/Vol]105 mmol/NXysvwm75-210Oly [facility] Physician GroupComment on above:Performed By: #### BMP, CBC #### [place] [address] USACO2 [Moles/Vol]22.6 mmol/WWqgvqq73.0-31.0The [facility] Physician GroupComment on above:Performed By: #### BMP, CBC #### [place] [address] USACreatinine [Mass/Vol]0.97 mg/dLNormal0.70-1.30The [facility] Physician GroupComment on above:Performed By: #### BMP, CBC #### [place] [address] USACreatinine Clr Calc Vkamshsi42.15NormalThe [facility] Physician GroupComment on above:Result Comment: PERFORMED BY: [place] [address] PATHOLOGIST CONTRACT NEGOTIATOR MAXIM HERNANDEZ M.D.Performed By: #### BMP, CBC #### [place] [address] USAGFR/1.73 sq M.predicted MDRD (S/P/Bld) [Vol rate/Area] mL/min/{1.73_m2}NormalThe [facility] Physician GroupComment on above:Performed By: #### BMP, CBC #### [place] [address] USAGlucose [Mass/Vol]109 mg/rIHdrd48-235Snm [facility] Physician GroupComment on above:Result Comment: Random Glucose Reference Range is dependent on time and content of last meal. Glucose of more than 200 mg/dL in a nonstressed, ambulatory subject supports the diagnosis of Diabetes Mellitus. ADA recommended reference rangePerformed By: #### BMP, CBC #### [place] [address] USAPotassium [Moles/Vol]3.6 mmol/LNormal3.5-5.1The [facility] Physician GroupComment on above:Performed By: #### BMP, CBC #### [place] [address] USASodium [Moles/Vol]137 mmol/GYareem276-813Czv [facility] Physician GroupComment on above:Performed By: #### BMP, CBC #### [facility] [address] [place] [address] USAUrea nitrogen [Mass/Vol]30 mg/dLHigh7-25The [facility] Physician GroupComment on above:Performed By: #### BMP, CBC #### [place] [address] USAComplete Blood Count Auto Diffon 09-40-2498Qipxmjwxl (Bld) [#/Vol]0.0 10*3/uLNormal0.0-0.2The [facility] Physician GroupComment on above: Result Comment: PERFORMED BY: [place] [address] PATHOLOGIST CONTRACT NEGOTIATOR MAXIM HERNANDEZ M.D.Performed By: #### BMP, CBC #### [place] [address] USABasophils/100 WBC (Bld)0.2 %Normal.The [facility] Physician GroupComment on above:Performed By: #### BMP, CBC #### [place] [address] USAEosinophils (Bld) [#/Vol]0.0 10*3/uLNormal0.0-0.45The [facility] Physician GroupComment on above:Performed By: #### BMP, CBC #### [place] [address] USAEosinophils/100 WBC (Bld)0.1 %Normal.The [facility] Physician GroupComment on above:Performed By: #### BMP, CBC #### [place] [address] USAErythrocyte distribution width (RBC) [Ratio]15.4 %High 12.0-14.8The [facility] Physician GroupComment on above:Performed By: #### BMP, CBC #### [place] [address] USAHematocrit (Bld) [Volume fraction]32.2 %Low38.8-50.0The [facility] Physician GroupComment on above:Performed By: #### BMP, CBC #### [place] [address] USAHemoglobin (Bld) [Mass/Vol]11.3 g/dLLow13.0-17.0The [facility] Physician GroupComment on above:Performed By: #### BMP, CBC #### [facility] [address] [place] [address] USALymphocytes (Bld) [#/Vol]0.4 10*3/uLLow1.00-4.8The [facility] Physician GroupComment on above:Performed By: #### BMP, CBC #### [place] [address] USALymphocytes/100 WBC (Bld)10.3 %Normal.The [facility] Physician GroupComment on above:Performed By: #### BMP, CBC #### [place] [address] USAMCH (RBC) [Entitic mass]33.0 qfWdhina84.5-35.2The [facility] Physician GroupComment on above:Performed By: #### BMP, CBC #### [place] [address] USAMCV (RBC) [Entitic vol]93.6 dVBpigeq55.5-101The [facility] Physician GroupComment on above:Performed By: #### BMP, CBC #### [place] [address] USAMean Corpuscular HGB Conc35.2 g/nAMlnzec40.5-35.6The [facility] Physician GroupComment on above:Performed By: #### BMP, CBC #### [place] [address] USAMonocytes (Bld) [#/Vol]0.5 10*3/uLNormal0.0-0.8The [facility] Physician GroupComment on above:Performed By: #### BMP, CBC #### [place] [address] USAMonocytes/100 WBC (Bld)12.5 %Normal.The [facility] Physician GroupComment on above:Performed By: #### BMP, CBC #### [place] [address] USANeutrophils (Bld) [#/Vol]2.9 10*3/uLNormal1.8-7.7The [facility] Physician GroupComment on above:Performed By: #### BMP, CBC #### [facility] [address] [place] [address] USANeutrophils/100 WBC (Bld)76.9 %Normal.The [facility] Physician GroupComment on above:Performed By: #### BMP, CBC #### [facility] [address] [place] [address] USANRBC%0.2 /100{WBC}Normal0-0.5The [facility] Physician Group Comment on above:Performed By: #### BMP, CBC #### [facility] [address] [place] [address] USAPlatelet mean volume (Bld) [Entitic vol]7.3 fLNormal 6.6-10.1The [facility] Physician GroupComment on above:Performed By: #### BMP, CBC #### [place] [address] USAPlatelets (Bld) [#/Vol]268 10*3/rMDhzwyf901-254Tss [facility] Physician GroupComment on above:Performed By: #### BMP, CBC #### [place] [address] USARBC (Bld) [#/Vol]3.44 10*6/uLLow3.90-5.60The [facility] Physician GroupComment on above:Performed By: #### BMP, CBC #### [place] [address] USAWBC (Bld) [#/Vol]3.7 10*3/uLLow4.1-10.5The [facility] Physician GroupComment on above:Performed By: #### BMP, CBC #### [place] [address] USAWhite Blood Count3.7 [CFU]/mLLow4.1-10.5The [facility] Physician GroupComment on above:Performed By: #### BMP, CBC #### [place] [address] USAPartial Thromboplastin Timeon 38-68-9125bFBM Coag (Bld) [Time]24.4 sLow25.1-36.5The [facility] Physician GroupComment on above:Result Comment: A hematocrit value greater than 55% may lead to inaccurate results in coagulation testing. Patients having hematocrit values >55% require a special collection tube for coagulation studies. Please contact the laboratory at [phone] for redraw instructions. PERFORMED BY: [place] [address] PATHOLOGIST CONTRACT NEGOTIATOR MAXIM HERNANDEZ M.D.Performed By: #### CBC #### [place] [id number] USAProthrombin Time INRon 33-73-5138IGK Coag (PPP) [Relative time]1.2 {INR}NormalThe [facility] Physician GroupComment on above:Result Comment: INR Therapeutic Range A) Pre- and [...] patients with mechanical heart valves: 3 - 4.5Performed By: #### CBC #### [place] [address] USAPT Coag (PPP) [Time]13.5 sHigh9.0-12.9The [facility] Physician GroupComment on above:Result Comment: A hematocrit value greater than 55% may lead to inaccurate results in coagulation testing. Patients having hematocrit values >55% require a special collection tube for coagulation studies. Please contact the laboratory at [phone] for redraw instructions.Performed By: #### CBC #### [address] [address] USAXR chest 1V portableon 81-90-1838ER chest 1V portable [facility] [address] [address] XRay Report Signed Patient: Tristin Powell MR#: [id number] : 1940 Acct:[id number] Age/Sex: 85 / M ADM Date: 05/04/25 Loc: Room: [address] [place] [address] Type: ADM IN Attending Dr: Ben Reddy [...] PERSISTS. Impression dictated by: Nabor Solitario Jr., D.O. 05/07/2025 10:05 AM Dictation Location: [place] [address] Transcribed By: [facility] 05/07/25 1005 Dictated By: Nabor Solitario Jr, DO 05/07/25 1004 Signed By: 05/07/25 1005NoFirst[facility] Physician GroupBasic Metabolic Panelon 59-18-4735Qtcxx gap [Moles/Vol]10.9 mmol/LNormal6.0-15.0The [facility] Physician GroupComment on above:Performed By: #### BMP, CBC #### [facility] [address] [place] [address] USACalcium [Mass/Vol]8.5 mg/dLLow8.6-10.3The [facility] Physician GroupComment on above:Performed By: #### BMP, CBC #### [facility] [address] [place] [address] USAChloride [Moles/Vol]102 mmol/IUzymbu48-233Msg [facility] Physician GroupComment on above:Performed By: #### BMP, CBC #### [facility] [address] [place] [address] USACO2 [Moles/Vol]23.6 mmol/SIwonmn83.0-31.0The [facility] Physician GroupComment on above:Performed By: #### BMP, CBC #### [place] [address] USACreatinine [Mass/Vol]1.14 mg/dLNormal0.70-1.30The [facility] Physician GroupComment on above:Performed By: #### BMP, CBC #### [place] [address] USACreatinine Clr Calc Qjsdbshi47.53NormalThe [facility] Physician GroupComment on above:Result Comment: PERFORMED BY: [place] [address] PATHOLOGIST CONTRACT NEGOTIATOR MAXIM HERNANDEZ M.D.Performed By: #### BMP, CBC #### [place] [address] USAGFR/1.73 sq M.predicted MDRD (S/P/Bld) [Vol rate/Area] mL/min/{1.73_m2}NormalThe [facility] Physician GroupComment on above:Performed By: #### BMP, CBC #### [place] [address] USAGlucose [Mass/Vol]115 mg/zTFjnk49-401Ycd [facility] Physician GroupComment on above:Result Comment: Random Glucose Reference Range is dependent on time and content of last meal. Glucose of more than 200 mg/dL in a nonstressed, ambulatory subject supports the diagnosis of Diabetes Mellitus. ADA recommended reference rangePerformed By: #### BMP, CBC #### [place] [address] USAPotassium [Moles/Vol]3.5 mmol/LNormal3.5-5.1The [facility] Physician GroupComment on above:Performed By: #### BMP, CBC #### [place] [address] USASodium [Moles/Vol]133 mmol/HOwa995-270Mwu [facility] Physician GroupComment on above:Performed By: #### BMP, CBC #### [place] [address] USAUrea nitrogen [Mass/Vol]35 mg/dLHigh7-25The [facility] Physician GroupComment on above:Performed By: #### BMP, CBC #### [facility] [address] [place] [id number] USACT chest wo conon [id number] chest wo [facility] [place] [address] [place] [address] CT Scan Report Signed Patient: Tristin Powell MR#: [id number] : 1940 Acct:[id number] Age/Sex: 85 / M ADM Date: 05/04/25 Loc: Room: [address] [place] [address] Type: ADM IN Attending Dr: Ben Reddy [...] Jr., D.O. 05/06/2025 12:36 PM Dictation Location: RADIO-PC-23 Transcribed By: VICENTE 05/06/25 1236 Dictated By: Nabor Solitario Jr, 05/06/25 1230 Signed By: 05/06/25 1236NormS[facility] Physician GroupCoagulation Profileon 05-06-2025 aPTT Coag (Bld) [Time]27.8 xAxxnew98.1-36.5The [facility] Physician [facility] HospitalComment on above:Order Comment: PER NURSE PRACTITIONER ANN- WANTS TO WAIT UNTIL 1400, HE HAS A CBC AT 1400.Result Comment: A hematocrit value greater than 55% may lead to inaccurate results in coagulation testing. Patients having hematocrit values >55% require a special collection tube for coagulation studies. Please contact the laboratory at [phone] for redraw instructions. PERFORMED BY: [place] [id number] PATHOLOGIST CONTRACT NEGOTIATOR MAXIM HERNANDEZ M.D.Performed By: #### BMP, CBC #### [facility] [address] [place], [place] [id number] USAINR Coag (PPP) [Relative time]1.4 {INR}NormalThe [facility] Physician [facility] HospitalComment on above:Order Comment: PER NURSE PRACTITIONER ANN- WANTS TO WAIT UNTIL 1400, HE HAS A CBC AT 1400.Result Comment: INR Therapeutic Range A) Pre- and [...] patients with mechanical heart valves: 3 - 4.5Performed By: #### BMP, CBC #### [facility] [address] [place] [address] USAPT Coag (PPP) [Time]15.9 sHigh9.0-12.9The [facility] Physician GroupComment on above:Order Comment: PER NURSE PRACTITIONER ANN- WANTS TO WAIT UNTIL 1400, HE HAS A CBC AT 1400.Result Comment: A hematocrit value greater than 55% may lead to inaccurate results in coagulation testing. Patients having hematocrit values >55% require a special collection tube for coagulation studies. Please contact the laboratory at [phone] for redraw instructions.Performed By: #### BMP, CBC #### [place] [address] USAComplete Blood Count Auto Diffon 92-88-8463Cqudchigj (Bld) [#/Vol]0.0 10*3/uLNormal0.0-0.2The [facility] Physician GroupComment on above: Result Comment: PERFORMED BY: [place] [address] PATHOLOGIST CONTRACT NEGOTIATOR MAXIM HERNANDEZ M.D.Performed By: #### CBC #### [place] [address] USABasophils/100 WBC (Bld)0.1 %Normal.The [facility] Physician GroupComment on above:Performed By: #### CBC #### [place] [address] USAEosinophils (Bld) [#/Vol]0.0 10*3/uLNormal0.0-0.45The [facility] Physician GroupComment on above:Performed By: #### CBC #### [place] [address] USAEosinophils/100 WBC (Bld)0.1 %Normal.The [facility] Physician GroupComment on above:Performed By: #### CBC #### [place] [address] USAErythrocyte distribution width (RBC) [Ratio]15.2 %High 12.0-14.8The [facility] Physician GroupComment on above:Performed By: #### CBC #### [place] [address] USAHematocrit (Bld) [Volume fraction]32.8 %Low38.8-50.0The [facility] Physician GroupComment on above:Performed By: #### CBC #### [place] [address] USAHemoglobin (Bld) [Mass/Vol]11.7 g/dLLow13.0-17.0The [facility] Physician GroupComment on above:Performed By: #### CBC #### [facility] [address] [place] [address] USALymphocytes (Bld) [#/Vol]0.2 10*3/uLLow1.00-4.8The [facility] Physician GroupComment on above:Performed By: #### CBC #### [facility] [address] [place] [address] USALymphocytes/100 WBC (Bld)6.5 %Normal.The [facility] Physician GroupComment on above:Performed By: #### CBC #### [facility] [address] [place] [address] USAMCH (RBC) [Entitic mass]32.6 piMbntni71.5-35.2The [facility] Physician GroupComment on above:Performed By: #### CBC #### [place] [address] USAMCV (RBC) [Entitic vol]91.6 jIYpeosu06.5-101The [facility] Physician GroupComment on above:Performed By: #### CBC #### [place] [address] USAMean Corpuscular HGB Conc35.6 g/dJVbzekt44.5-35.6The [facility] Physician GroupComment on above:Performed By: #### CBC #### [facility] [address] [place] [address] USAMonocytes (Bld) [#/Vol]0.3 10*3/uLNormal0.0-0.8The [facility] Physician GroupComment on above:Performed By: #### CBC #### [facility] [address] [place] [address] USAMonocytes/100 WBC (Bld)10.4 %Normal.The [facility] Physician GroupComment on above:Performed By: #### CBC #### [place] [address] USANeutrophils (Bld) [#/Vol]2.1 10*3/uLNormal1.8-7.7The [facility] Physician GroupComment on above:Performed By: #### CBC #### [facility] [address] [place] [address] USANeutrophils/100 WBC (Bld)82.9 %Normal.The [facility] Physician GroupComment on above:Performed By: #### CBC #### [facility] [address] [place] [address] USANRBC%0.2 /100{WBC}Normal0-0.5The [facility] Physician Group Comment on above:Performed By: #### CBC #### [facility] [address] [place] [address] USAPlatelet mean volume (Bld) [Entitic vol]7.3 fLNormal 6.6-10.1The [facility] Physician GroupComment on above:Performed By: #### CBC #### [place] [address] USAPlatelets (Bld) [#/Vol]222 10*3/tLKdfapv333-686Pup [facility] Physician GroupComment on above:Performed By: #### CBC #### [place] [address] USARBC (Bld) [#/Vol]3.59 10*6/uLLow3.90-5.60The [facility] Physician GroupComment on above:Performed By: #### CBC #### [place] [address] USAWBC (Bld) [#/Vol]2.5 10*3/uLLow4.1-10.5The [facility] Physician GroupComment on above:Performed By: #### CBC #### [place] [address] USAWhite Blood Count2.5 [CFU]/mLLow4.1-10.5The [facility] Physician GroupComment on above:Performed By: #### CBC #### [address] [address] USABasophils (Bld) [#/Vol]0.0 10*3/uLNormal0.0-0.2The [facility] Physician GroupComment on above:Result Comment: PERFORMED BY: [place] [address] PATHOLOGIST CONTRACT NEGOTIATOR MAXIM HERNANDEZ M.D.Performed By: #### BMP, CBC #### [place] [address] USABasophils/100 WBC (Bld)0.1 %Normal.The [facility] Physician GroupComment on above:Performed By: #### BMP, CBC #### [place] [address] USAEosinophils (Bld) [#/Vol]0.0 10*3/uLNormal0.0-0.45The [facility] Physician GroupComment on above:Performed By: #### BMP, CBC #### [place] [address] USAEosinophils/100 WBC (Bld)0.2 %Normal.The [facility] Physician GroupComment on above:Performed By: #### BMP, CBC #### [place] [address] USAErythrocyte distribution width (RBC) [Ratio]15.3 %High 12.0-14.8The [facility] Physician GroupComment on above:Performed By: #### BMP, CBC #### [place] [address] USAHematocrit (Bld) [Volume fraction]29.9 %Low38.8-50.0The [facility] Physician GroupComment on above:Performed By: #### BMP, CBC #### [place] [address] USAHemoglobin (Bld) [Mass/Vol]10.7 g/dLLow13.0-17.0The [facility] Physician GroupComment on above:Performed By: #### BMP, CBC #### [place] [address] USALymphocytes (Bld) [#/Vol]0.3 10*3/uLLow1.00-4.8The [facility] Physician GroupComment on above:Performed By: #### BMP, CBC #### [facility] [address] [place] [id number] USALymphocytes/100 WBC (Bld)13.1 %Normal.The [facility] Physician GroupComment on above:Performed By: #### BMP, CBC #### [facility] [address] [place] [address] USAMCH (RBC) [Entitic mass]33.1 opTqnxwe25.5-35.2The [facility] Physician GroupComment on above:Performed By: #### BMP, CBC #### [facility] [address] [place] [address] USAMCV (RBC) [Entitic vol]92.7 aSPgkrir83.5-101The [facility] Physician GroupComment on above:Performed By: #### BMP, CBC #### [facility] [address] [place] [address] USAMean Corpuscular HGB Conc35.7 g/lEWnhv72.5-35.6The [facility] Physician GroupComment on above:Performed By: #### BMP, CBC #### [facility] [address] [place] [address] USAMonocytes (Bld) [#/Vol]0.5 10*3/uLNormal0.0-0.8The [facility] Physician GroupComment on above:Performed By: #### BMP, CBC #### [facility] [address] [place] [address] USAMonocytes/100 WBC (Bld)17.7 %Normal.The [facility] Physician GroupComment on above:Performed By: #### BMP, CBC #### [facility] [address] [place] [address] USANeutrophils (Bld) [#/Vol]1.8 10*3/uLNormal1.8-7.7The [facility] Physician GroupComment on above:Performed By: #### BMP, CBC #### [facility] [address] [place] [id number] USANeutrophils/100 WBC (Bld)68.9 %Normal.The [facility] Physician GroupComment on above:Performed By: #### BMP, CBC #### [facility] [address] [place] [address] USANRBC%0.1 /100{WBC}Normal0-0.5The [facility] Physician Group Comment on above:Performed By: #### BMP, CBC #### [place] [address] USAPlatelet mean volume (Bld) [Entitic vol]7.3 fLNormal 6.6-10.1The [facility] Physician GroupComment on above:Performed By: #### BMP, CBC #### [place] [address] USAPlatelets (Bld) [#/Vol]200 10*3/nALfavxj753-526Tep [facility] Physician GroupComment on above:Performed By: #### BMP, CBC #### [place] [address] USARBC (Bld) [#/Vol]3.23 10*6/uLLow3.90-5.60The [facility] Physician GroupComment on above:Performed By: #### BMP, CBC #### [place] [address] USAWBC (Bld) [#/Vol]2.7 10*3/uLLow4.1-10.5The [facility] Physician GroupComment on above:Performed By: #### BMP, CBC #### [place] [address] USAWhite Blood Count2.7 [CFU]/mLLow4.1-10.5The [facility] Physician GroupComment on above:Performed By: #### BMP, CBC #### [place] [address] USALegionella Pneumophilia Ag, Uron 70-19-6269Bkuhjrqotw Pneumophilia Ag, UrNegativeNormalNegativeThe [facility] Physician GroupComment on above:Order Comment: Faxed Results to [facility] [phone] at 1525 on 05/09/25 Result Comment: Presumptive negative for L. pneumophila serogroup 1 antigen in urine, suggesting no recent or current infection. Legionnaires' disease cannot be ruled out since other serogroups and species may also cause disease. Performed at: [address] [id number] [facility] Attendant: Kate Austin MD, Phone: [phone] By: #### URLEGIONELLA, UR STP AG ####[facility] ,Strep Pneumoniae Ag, Uron 84-20-5571Qqel Fluid CultureNot indicated.Normal.The [facility]ician Group Comment on above:Order Comment: Faxed Results to [facility] [phone] at 1525 on 05/09/25Performed By: #### URLEGIONELLA, UR STP AG ####[facility] , Organism IDNot indicated.Normal.The [facility] Physician GroupComment on above: Order Comment: Faxed Results to [facility] [phone] at 1525 on 05/09/25Performed By: #### URLEGIONELLA, UR STP AG ####[facility] ,Please Note:Comment Normal.The [facility] Physician GroupComment on above:Order Comment: Faxed Results to [facility] [phone] at 1525 on 05/09/25Result Comment: [employer] standards require a culture to be performed on CSF specimens submitted for bacterial antigen testing. (CAP PETER.[id number]) Urine specimens will not be cultured. [employer] standards require a culture to be performed on CSF specimens submitted for bacterial antigen testing. (CAP PETER.[id number]) Urine specimens will not be cultured. Performed at: [address] [id number] [facility] Attendant: Kate Austin MD, Phone: [phone] --- 05/08/25 1636 --- Please Note: previously reported as: Comment [employer] standards require a culture to be performed on CSF specimens submitted for bacterial antigen testing. (CAP PETER.[id number]) Urine specimens will not be cultured. PERFORMED BY: [facility] [place]IE [place]DOM[place] [id number] PATHOLOGIST CONTRACT NEGOTIATOR MAXIM HERNANDEZ M.D.Performed By: #### URLEGIONELLA, UR STP AG ####[facility] ,Specimen source Nom (Unsp spec)UrineNormal.The [facility] Physician GroupComment on above:Order Comment: Faxed Results to [facility] [phone] at 1525 on 05/09/25Performed By: #### URLEGIONELLA, UR STP AG ####[facility] , Streptococcus Pneumoniae AgNegativeNormalNegativeThe [facility] Physician Group Comment on above:Order Comment: Faxed Results to [facility] [phone] at 1525 on 05/09/25Performed By: #### URLEGIONELLA, UR STP AG ####[facility] , Aerobic Cultureon [id number] CultureFaxed Results to [facility] [phone] at 1525 on 05/09/25 Result Tab Codes Heavy Normal Respiratory Cameron 2 Days Faxed Results to [facility] [phone] at 1525 on 05/09/25 Gram Stain Result 3+ Gram Positive Cocci in Pairs 3+ Gram Positive Cocci in Clusters 3+ Gram Negative Bacilli 3+ White Blood Cells 2+ Epithelial Cells Rare Yeast Like Elements PERFORMED BY: [address] [address] PATHOLOGIST CONTRACT NEGOTIATOR MAXIM HERNANDEZ M.D.NormalThe [facility] Physician GroupComment on above: Performed By: #### AERC, GS #### [facility] [address] [place] [address] USABasic Metabolic Panelon 00-36-8526Gtbzk gap [Moles/Vol] 14.3 mmol/LNormal6.0-15.0The [facility] Physician GroupComment on above:Performed By: #### BMP, CBC #### [facility] [address] [place] [address] USACalcium [Mass/Vol]8.9 mg/dLNormal8.6-10.3The [facility] Physician GroupComment on above:Performed By: #### BMP, CBC #### [facility] [address] [place] [address] USAChloride [Moles/Vol]97 mmol/IUib44-185Lsm [facility] Physician GroupComment on above:Performed By: #### BMP, CBC #### [facility] [address] [place] [address] USACO2 [Moles/Vol]24.8 mmol/YLfeibs16.0-31.0The [facility] Physician GroupComment on above:Performed By: #### BMP, CBC #### [facility] [address] [place] [address] USACreatinine [Mass/Vol]1.45 mg/dLHigh0.70-1.30The [facility] Physician GroupComment on above:Performed By: #### BMP, CBC #### [facility] [address] [place] [address] USACreatinine Clr Calc Txfnxtkf91.59NormalThe [facility] Physician GroupComment on above:Result Comment: PERFORMED BY: [place] [address] PATHOLOGIST CONTRACT NEGOTIATOR MAXIM HERNANDEZ M.D.Performed By: #### BMP, CBC #### [place] [address] USAGFR/1.73 sq M.predicted MDRD (S/P/Bld) [Vol rate/Area] 46.930 mL/min/{1.73_m2}NormalThe [facility] Physician GroupComment on above: Performed By: #### BMP, CBC #### [facility] [address] [place] [address] USAGlucose [Mass/Vol]139 mg/bMEpdv44-813Ifb [facility] Physician GroupComment on above:Result Comment: Random Glucose Reference Range is dependent on time and content of last meal. Glucose of more than 200 mg/dL in a nonstressed, ambulatory subject supports the diagnosis of Diabetes Mellitus. ADA recommended reference rangePerformed By: #### BMP, CBC #### [facility] [address] [place] [address] USAPotassium [Moles/Vol]4.1 mmol/LNormal3.5-5.1The [facility] Physician GroupComment on above:Performed By: #### BMP, CBC #### [facility] [address] [place] [address] USASodium [Moles/Vol]132 mmol/UGxo716-683Gwv [facility] Physician GroupComment on above:Performed By: #### BMP, CBC #### [facility] [address] [place] [address] USAUrea nitrogen [Mass/Vol]32 mg/dLHigh7-25The [facility] Physician GroupComment on above:Performed By: #### BMP, CBC #### [facility] [address] [place] [address] USACT angio chest PE protocolon 08-60-7409ON angio chest PE protocolMERCY [facility]ALTH [facility] [address] [place] [address] CT Scan Report Signed Patient: Tristin Powell MR#: [id number] : 1940 Acct:[id number] Age/Sex: 85 / M ADM Date: 05/04/25 Loc: Room: [address] [place] [address] Type: ADM IN Attending Dr: Adiel Mccollum [...] infected bulla versus abscess. Impression dictated by: Cristian Rodriguez M.D. 05/05/2025 8:31 AM Dictation Location: [place] [address] Transcribed By: [facility] 05/05/2531 Dictated By: Cristian Rodriguez DO 05/05/25 0828 Signed By: 05/05/2531[facility] Physician GroupDiff and Shmuel 05-05-2025 Anisocytosis Ql (Bld)SlightNoFirstHealth [facility] Physician GroupComment on above: Performed By: #### BMP, CBC #### [place] [address] USABand form neutrophils/100 WBC (Bld)22 %High0-5The [facility] Physician GroupComment on above:Performed By: #### BMP, CBC #### [place] [address] USACrenated RBCSlightNoFirstHealth [facility] Physician Group Comment on above:Performed By: #### BMP, CBC #### [place] [address] USAErythrocyte distribution width (RBC) [Ratio]16.0 %High 12.0-14.8The [facility] Physician GroupComment on above:Performed By: #### BMP, CBC #### [place] [address] USAHematocrit (Bld) [Volume fraction]35.0 %Low38.8-50.0The [facility] Physician GroupComment on above:Performed By: #### BMP, CBC #### [facility] [address] [place] [address] USAHemoglobin (Bld) [Mass/Vol]12.4 g/dLLow13.0-17.0The [facility] Physician GroupComment on above:Performed By: #### BMP, CBC #### [facility] [address] [place] [id number] USALymphocytes/100 WBC (Bld)6 %Iwq13-26Lyt [facility] Physician GroupComment on above:Performed By: #### BMP, CBC #### [facility] [address] [place] [address] USAMCH (RBC) [Entitic mass]32.8 dqUdmnvz87.5-35.2The [facility] Physician GroupComment on above:Performed By: #### BMP, CBC #### [place] [address] USAMCV (RBC) [Entitic vol]92.6 wWTcaxdf47.5-101The [facility] Physician GroupComment on above:Performed By: #### BMP, CBC #### [place] [address] USAMean Corpuscular HGB Conc35.4 g/cZHbmghk81.5-35.6The [facility] Physician GroupComment on above:Performed By: #### BMP, CBC #### [place] [address] USAMetamyelocytes2 %High0-0The [facility]ician [facility] Comment on above:Performed By: #### BMP, CBC #### [place] [address] USAMonocytes/100 WBC (Bld)8 %Normal2-11The [facility] Physician GroupComment on above:Performed By: #### BMP, CBC #### [place] [address] USAPlatelet EstimateNormalNormalNormalThe [facility] Physician GroupComment on above:Performed By: #### BMP, CBC #### [place] [address] USAPlatelet mean volume (Bld) [Entitic vol]7.3 fLNormal 6.6-10.1The [facility] Physician GroupComment on above:Performed By: #### BMP, CBC #### [place] [address] USAPlatelet MorphologyNormalNormalNoFirstHealth [facility] Physician GroupComment on above:Result Comment: PERFORMED BY: [place] [address] PATHOLOGIST CONTRACT NEGOTIATOR MAXIM HERNANDEZ M.D.Performed By: #### BMP, CBC #### [place] [address] USAPlatelets (Bld) [#/Vol]248 10*3/hMUbklrp941-701Kcz [facility] Physician GroupComment on above:Performed By: #### BMP, CBC #### [place] [address] USARBC (Bld) [#/Vol]3.78 10*6/uLLow3.90-5.60The [facility] Physician GroupComment on above:Performed By: #### BMP, CBC #### [place] [address] USASegmented neutrophils/100 WBC (Bld)62 %Pkwnrm44-13Fdw [facility] Physician GroupComment on above:Performed By: #### BMP, CBC #### [place] [address] USAToxic VacuolationSlightJoe DiMaggio [facility]'s [facility] Physician Group Comment on above:Performed By: #### BMP, CBC #### [place] [address] USAWBC (Bld) [#/Vol]7.6 10*3/uLNormal4.1-10.5The [facility] Physician GroupComment on above:Performed By: #### BMP, CBC #### [place] [address] USAWhite Blood Count7.6 [CFU]/mLNormal4.1-10.5The [facility] Physician GroupComment on above:Performed By: #### BMP, CBC #### [facility] [address] [place] [address] USAECH echo transthoracicon 06-81-4439WMD echo transthoracic [facility] [address] [place] [id number] Echocardiogram Signed Patient: Tristin Powell MR#: [id number] : 1940 Acct:[id number] Age/Sex: 85 / M ADM Date: 05/04/25 Loc: Room: 4N5137-2 Type: ADM IN Attending Dr: Ben Reddy DO Ordering Provider: Mell Hou APRN Date of Service: 05/03/2502/19/1109 ECH/ECH echo transthoracic: Chest pain Copies to: MD Mell Morton, 11:27 AM Patient Location: : 1940 Gender: Male (MM/DD/YYYY) Age: 85 Years Ordering Physician: eMll Hou Height: 74 in Weight: 235.233 lb Performed By: ALEXEY Kilpatrick BSA: 2.33 m2 BP: 129 / 59 mmHg HR: 85 bpm Reason For Study: Chest pain History: PVD, HTN, CAD, HLD + + Interpretation Summary Ejection Fraction = 50-55%. Moderate [...] mmHg LV V1 VTI: 22.8 cm + + + + + : Electronically : : : : signed by: Eliezer : : : : Jim : : Daisy : : : : on: 05/05/2025, : : : : 5:52 PM : + + + Tech Comments previous echo in elera. No previous echo. Transcribed By: SCV Performed At: 05/05/25 1127 Signed By: Eliezer Villa MD 05/05/[address] [place] [address] Physician GroupGram Stainon 53-69-4261Wmtutummrys observation Gram stain Nom (Unsp spec)Gram Stain Result 3+ Gram Positive Cocci in Pairs 3+ Gram Positive Cocci in Clusters 3+ Gram Negative Bacilli 3+ White Blood Cells 2+ Epithelial Cells Rare Yeast Like Elements PERFORMED BY: [place] [address] PATHOLOGIST CONTRACT NEGOTIATOR MAXIM HERNANDEZ M.D.NormalThe [facility] Physician [facility] HospitalComment on above: Performed By: #### AERC, GS #### [place] [address] USAXR chest 1V portableon 54-56-6287LX chest 1V portable [facility] [address] [place] [address] XRay Report Signed Patient: Tristin Powell MR#: [id number] : 1940 Acct:[id number] Age/Sex: 85 / M ADM Date: 05/04/25 Loc: Room: [address] [place] [address] Type: ADM IN Attending Dr: Adiel Mccollmu MD Copies to: MD Enrique Quinonez MD [...] Rodriguez M.D. 05/05/2025 9:21 AM Dictation Location: [place] [address] Transcribed By: [facility] 05/05/25920 Dictated By: Cristian Rodriguez DO 05/05/25919 Signed By: 05/05/25 0921NoFirstHealth [facility] Physician GroupAerobic Cultureon 05-04-2025 Aerobic CultureFaxed Results to [facility] [phone] at 1525 on 05/09/25 ORGANISM: Streptococcus pneumoniae (O:STRPNE) Quantity of Growth Heavy Growth ORGANISM: Pseudomonas aeruginosa (O:PSEAER) Quantity of Growth Light Growth Faxed Results to [facility] [phone] at 1525 on 05/09/25 Gram Stain Result 3+ White Blood Cells 3+ Epithelial Cells 3+ Gram Positive Bacilli 3+ Gram Positive Cocci in Chains AND PAIRS 3+ Gram Negative Cocci 2+ Gram Negative Bacilli Aerobic Peter Charge (Strep) SUSCEPTIBILITY ORGANISM: O:STRPNE ANTIBIOTIC INTERPRETATION PETER Amoxacillin/K Clavulanate I 44/2 Cefepime I 2 Ceftriaxone I 1 Cefuroxime R >2 Erythromycin R >0.5 Levofloxacin S 1 Meropenem R >0.5 Penicillin R 4 Tetracycline R >4 Trimethoprim/Sulfamethoxazole R >2 Vancomycin S 0.5 Aerobic PETER Charge (NMIC56) SUSCEPTIBILITY ORGANISM: O:PSEAER ANTIBIOTIC INTERPRETATION PETER Amikacin S [...] RESISTANT TO ALL B-LACTAM DRUGS. PERFORMED BY: [facility] [address] [place] [address] PATHOLOGIST CONTRACT NEGOTIATOR MAXIM HERNANDEZ M.D.[facility] Physician GroupComment on above: Performed By: #### AERC, #### [address] [address] USAECG 12 lead ECGon 43-73-6406LRM 12 lead ECGMERCY [facility]ALTH [facility] [address] [place] [address] Electrocardiograph Report Signed Patient: Tristin Powell MR#: [id number] : 1940 Acct:[id number] Age/Sex: 85 / M ADM Date: 05/04/25 Loc: Room: [address] [place] [address] Type: ADM IN Attending Dr: Ben Reddy [...] no longer present Confirmed by Eliezer Villa ([id number]) on 05/05/2025 5:26:36 PM Referred By: Electronically Signed By: Eliezer Villa Transcribed By: MUS Signed By Eliezer Villa MD 05/05/[address] [place] [address] Physician GroupGram Stainon 05-04-2025 Microscopic observation Gram stain Nom (Unsp spec)Gram Stain Result 3+ White Blood Cells 3+ Epithelial Cells 3+ Gram Positive Bacilli 3+ Gram Positive Cocci in Chains AND PAIRS 3+ Gram Negative Cocci 2+ Gram Negative Bacilli PERFORMED BY: [address] [address] PATHOLOGIST CONTRACT NEGOTIATOR MAXIM HERNANDEZ M.D.[facility] Physician [facility] HospitalComment on above: Performed By: #### AERC, GS #### [address] [address] USAMRSA - MSSA Nasal PCRon [id number] - MSSA Nasal PCR Faxed Results to [facility] [phone] at 1525 on 05/09/25 MRSA Result MRSA Negative MSSA Result MSSA Negative Real-time PCR Test performed by real-time PCR Reference Range Reference Range for all targets = Neg / Not Detected Reference Note 20 Reference Note 26 PERFORMED BY: [facility] [address] [place] [id number] PATHOLOGIST CONTRACT NEGOTIATOR MAXIM HERNANDEZ M.D.[facility] Medical CenterComment on above: Performed By: #### MRSA - MSSA PCR #### [facility] [address] [place] [address] USAMagnesiumon 13-66-3808Kruirdflj [Mass/Vol]1.7 mg/dLLow 1.9-2.7The [facility] Physician [facility] HospitalComment on above:Result Comment: PERFORMED BY: [place] [id number] PATHOLOGIST CONTRACT NEGOTIATOR MAXIM HERNANDEZ M.D.Performed By: #### MG ####[facility] [address] [place] [address] USATroponin I High Sensitivityon 16-07-0606Rwtvbtul I High Dkbyvpfvnls71Ojoe1-83Uww [facility] Physician [facility] Comment on above:Result Comment: The Troponin units of report have been changed to meet the Chest Pain Accreditation requirement, element EC5.M1l2. Troponin units are changed from pg/ml to ng/L. Also, the decimal is removed and results are in whole numbers. PERFORMED BY: [place] [address] PATHOLOGIST CONTRACT NEGOTIATOR MAXIM HERNANDEZ M.D.Performed By: #### CBC #### [place] [address] USABasic Metabolic Panelon 17-13-5393Msrkk gap [Moles/Vol] 12.6 mmol/LNormal6.0-15.0The [facility] Physician GroupComment on above:Order Comment: FASTING YPerformed By: #### CBC #### [place] [address] USACalcium [Mass/Vol]9.3 mg/dLNormal8.6-10.3The [facility] Physician GroupComment on above:Order Comment: FASTING YPerformed By: #### CBC #### [place] [address] USAChloride [Moles/Vol]103 mmol/CLatnok06-252Wyu [facility] Physician GroupComment on above:Order Comment: FASTING YPerformed By: #### CBC #### [place] [address] USACO2 [Moles/Vol]26.4 mmol/NVcqtbf30.0-31.0The [facility] Physician GroupComment on above:Order Comment: FASTING YPerformed By: #### CBC #### [place] [address] USACreatinine [Mass/Vol]0.90 mg/dLNormal0.70-1.30The [facility] Physician GroupComment on above:Order Comment: FASTING YPerformed By: #### CBC #### [place] [address] USACreatinine Clr Calc Rbyychxb63.27NormalThe [facility] Physician GroupComment on above:Order Comment: FASTING YPerformed By: #### CBC #### [facility] [address] [place] [address] USAGFR/1.73 sq M.predicted MDRD (S/P/Bld) [Vol rate/Area] mL/min/{1.73_m2}NormalThe [facility] Physician GroupComment on above:Order Comment: FASTING YPerformed By: #### CBC #### [place] [address] USAGlucose [Mass/Vol]87 mg/nMLmzoar25-350Yrp [facility] Physician GroupComment on above:Order Comment: FASTING YResult Comment: Random Glucose Reference Range is dependent on time and content of last meal. Glucose of more than 200 mg/dL in a nonstressed, ambulatory subject supports the diagnosis of Diabetes Mellitus. ADA recommended reference rangePerformed By: #### CBC #### [place] [address] USAPotassium [Moles/Vol]4.0 mmol/LNormal3.5-5.1The [facility] Physician GroupComment on above:Order Comment: FASTING YPerformed By: #### CBC #### [place] [address] USASodium [Moles/Vol]138 mmol/BPvsakt637-920Smt [facility] Physician GroupComment on above:Order Comment: FASTING YPerformed By: #### CBC #### [place] [address] USAUrea nitrogen [Mass/Vol]22 mg/dLNormal7-25The [facility] Physician GroupComment on above:Order Comment: FASTING YPerformed By: #### CBC #### [place] [address] USAComplete Blood Count Auto Diffon 95-19-3049Xlgenqfwj (Bld) [#/Vol]0.0 10*3/uLNormal0.0-0.2The [facility] Physician GroupComment on above: Result Comment: PERFORMED BY: [place] [address] PATHOLOGIST CONTRACT NEGOTIATOR MAXIM HERNANDEZ M.D.Performed By: #### CBC #### [place] [address] USABasophils/100 WBC (Bld)0.4 %Normal.The [facility] Physician GroupComment on above:Performed By: #### CBC #### [facility] [address] [place] [address] USAEosinophils (Bld) [#/Vol]0.0 10*3/uLNormal0.0-0.45The [facility] Physician GroupComment on above:Performed By: #### CBC #### [place] [address] USAEosinophils/100 WBC (Bld)0.5 %Normal.The [facility] Physician GroupComment on above:Performed By: #### CBC #### [place] [address] USAErythrocyte distribution width (RBC) [Ratio]15.9 %High 12.0-14.8The [facility] Physician GroupComment on above:Performed By: #### CBC #### [place] [address] USAHematocrit (Bld) [Volume fraction]33.8 %Low38.8-50.0The [facility] Physician GroupComment on above:Performed By: #### CBC #### [place] [address] USAHemoglobin (Bld) [Mass/Vol]11.9 g/dLLow13.0-17.0The [facility] Physician GroupComment on above:Performed By: #### CBC #### [place] [address] USALymphocytes (Bld) [#/Vol]0.6 10*3/uLLow1.00-4.8The [facility] Physician GroupComment on above:Performed By: #### CBC #### [place] [address] USALymphocytes/100 WBC (Bld)20.9 %Normal.The [facility] Physician GroupComment on above:Performed By: #### CBC #### [facility] [address] [place] [address] USAMCH (RBC) [Entitic mass]33.3 ecUrnyoh09.5-35.2The [facility] Physician GroupComment on above:Performed By: #### CBC #### [address]MC[address] (RBC) [Entitic vol]94.3 gHWwuyfy50.5-101The [facility] Physician GroupComment on above:Performed By: #### CBC #### [place] [address] USAMean Corpuscular HGB Conc35.3 g/aSWrgtba41.5-35.6The [facility] [facility] Physician GroupComment on above:Performed By: #### CBC #### [place] [address] USAMonocytes (Bld) [#/Vol]0.6 10*3/uLNormal0.0-0.8The [facility] Physician GroupComment on above:Performed By: #### CBC #### [place] [address] USAMonocytes/100 WBC (Bld)23.2 %Normal.The [facility] Physician GroupComment on above:Performed By: #### CBC #### [place] [address] USANeutrophils (Bld) [#/Vol]1.5 10*3/uLLow1.8-7.7The [facility] Physician GroupComment on above:Performed By: #### CBC #### [place] [address] USANeutrophils/100 WBC (Bld)55.0 %Normal.The [facility] Physician GroupComment on above:Performed By: #### CBC #### [place] [address] USANRBC%0.2 /100{WBC}Normal0-0.5The [facility]ician Group Comment on above:Performed By: #### CBC #### [place] [address] USAPlatelet mean volume (Bld) [Entitic vol]7.3 fLNormal 6.6-10.1The [facility] Physician GroupComment on above:Performed By: #### CBC #### [facility] [address] [place] [address] USAPlatelets (Bld) [#/Vol]216 10*3/jUHpbcyh792-371Fpl [facility] Physician GroupComment on above:Performed By: #### CBC #### [facility] [address] [place] [address] USARBC (Bld) [#/Vol]3.58 10*6/uLLow3.90-5.60The [facility] Physician GroupComment on above:Performed By: #### CBC #### [facility] [address] [place] [address] USAWBC (Bld) [#/Vol]2.8 10*3/uLLow4.1-10.5The [facility] Physician GroupComment on above:Performed By: #### CBC #### [place] [address] USAWhite Blood Count2.8 [CFU]/mLLow4.1-10.5The [facility] Physician GroupComment on above:Performed By: #### CBC #### [place] [address] USAECG 12 lead ECGon 61-46-1432DVG 12 lead [facility]MER[facility] [address] [place] [address] Electrocardiograph Report Signed Patient: Tristin Powell MR#: [id number] : 1940 Acct:[id number] Age/Sex: 85 / M ADM Date: 05/02/25 Loc: Room: [address] [place] [address] Type: ADM INOo Attending Dr: Adiel Mccollum [...] are now present Confirmed by Eliezer Villa ([id number]) on 05/04/2025 8:06:25 AM Referred By: Electronically Signed By: Eliezer Villa Transcribed By: MUS Signed By Eliezer Villa MD 05/04/[address] [place], [place] [address]Lipid Panelon 05-03-2025 Cholesterol [Mass/Vol]136 mg/tVBvp399-158Wnn [facility] HospitalComment on above:Order Comment: FASTING YResult Comment: Chol less than 200 mg/dl low risk Chol 201-239 mg/dl borderline risk Chol 240 mg/dl and greater high riskPerformed By: #### CBC #### [facility] [address] [place] [address] USACholesterol in HDL [Mass/Vol]56 mg/oVCyaftl33-32Kte [facility] Physician [facility] HospitalComment on above:Order Comment: FASTING YResult Comment: HDL CHOL ATP-III CLASSIFICATION Cardiovascular Risk HDL > or equal to 60 mg/dL LOW HDL < 40 mg/dL HIGHPerformed By: #### CBC #### [facility] [address] [place] [address] USACholesterol.total/Cholesterol in HDL [Mass ratio]2.4 {ratio}Normal<5.0The [facility] HospitalComment on above:Order Comment: FASTING YResult Comment: PERFORMED BY: [address] [address] PATHOLOGIST CONTRACT NEGOTIATOR MAXIM HERNANDEZ M.D.Performed By: #### CBC #### [facility] [address] [place] [address] USALDL Cholesterol,Enjavxgcrp33 mg/dLNormal0-100The [facility] Physician [facility] HospitalComment on above:Order Comment: FASTING YResult Comment: LDL ATP III CLASSIFICATION LDL less than 100 mg/dL Optimal LDL 100-129 mg/dL Near or above optimal LDL 130-159 mg/dL Borderline high LDL 160-189 mg/dL High LDL greater than 189 mg/dL Very highPerformed By: #### CBC #### [place] [id number] USATriglyceride w/Xbkkli66 mg/dLNormal0-149[facility] Physician GroupComment on above:Order Comment: FASTING YResult Comment: TRIG ATP III CLASSIFICATION TRIG less than 150 mg/dL Normal TRIG 150-199 mg/dL Borderline high TRIG 200-500 mg/dL High TRIG greater than 500 mg/dL Very high Standard traceable to the Center for Disease Conrtrol and Prevention (CDC) test method.Performed By: #### CBC #### [place] [address] USAVLDL HQGIXNILTNY88 mg/dLNoFirstHealth Montgomery Memorial Hospital Physician GroupComment on above:Order Comment: FASTING YPerformed By: #### CBC #### [place] [address] USATroponin I High Sensitivityon 26-31-3587Fnskmuaq I High Ikqzwadlmzl31Zvdd2-89[facility] Physician GroupComment on above:Result Comment: The Troponin units of report have been changed to meet the Chest Pain Accreditation requirement, element EC5.M1l2. Troponin units are changed from pg/ml to ng/L. Also, the decimal is removed and results are in whole numbers. PERFORMED BY: [place] [address] PATHOLOGIST CONTRACT NEGOTIATOR MAXIM HERNANDEZ M.D.Performed By: #### BMP, CBC #### [place] [address] USATroponin I High Hdtsbwxsxqa96Jzl scale high0-20ThSaint Alphons[facility] Physician GroupComment on above:Order Comment: Comment Add onResult Comment: Critical Result : Called to and read back by: ROCIO BOO at: 05/03/2025 10:18:05 by:KULDEEP The Troponin units of report have been changed to meet the Chest Pain Accreditation requirement, element EC5.M1l2. Troponin units are changed from pg/ml to ng/L. Also, the decimal is removed and results are in whole numbers. PERFORMED BY: [place] [address] PATHOLOGIST CONTRACT NEGOTIATOR MAXIM HERNANDEZ M.D.Performed By: #### BMP, CBC #### [place] [address] USATroponin I High Qeetfuynvzv96Gdf scale high0-20The [facility] Physician GroupComment on above:Result Comment: Critical Result : Called to and read back by: ERICA KIMBLE at: 05/03/2025 01:16:26 by:[id number] The Troponin units of report have been changed to meet the Chest Pain Accreditation requirement, element EC5.M1l2. Troponin units are changed from pg/ml to ng/L. Also, the decimal is removed and results are in whole numbers. PERFORMED BY: [place] [address] PATHOLOGIST CONTRACT NEGOTIATOR MAXIM HERNANDEZ M.D.Performed By: #### CBC #### [place] [address] USABNP ser/plasOrdered By: Muna Greene on 05-02-2025 Natriuretic peptide B (Bld) [Mass/Vol]222.0 pg/mLRockefeller Neuroscience Institute Innovation Center5-100[facility] SystemComment on above:Result Comment: PERFORMED BY: [place] [address] PATHOLOGIST CONTRACT NEGOTIATOR MAXIM HERNANDEZ M.D.Performed By: #### BMP, CBC #### [place] [address] USABasic Metabolic Panelon 90-08-9384Wfxdznjkff Clr Calc Cgomposo18.92NoFirstHealth Montgomery Memorial Hospital Physician GroupComment on above:Result Comment: PERFORMED BY: [place] [address] PATHOLOGIST CONTRACT NEGOTIATOR MAXIM HERNANDEZ M.D.Performed By: #### BMP, CBC #### [place] [address] USAGFR/1.73 sq M.predicted MDRD (S/P/Bld) [Vol rate/Area] mL/min/{1.73_m2}NormalThe [facility] Physician GroupComment on above:Performed By: #### BMP, CBC #### [place] [id number] USABasophils [#/volume] in Blood by Automated countOrdered By: Muna Greene on 40-56-1663Fxbdrvyrk (Bld) [#/Vol]0.0 10*3/uLNormal0.0-0.2 [facility] SystemComment on above:Result Comment: PERFORMED BY: [place] [address] PATHOLOGIST CONTRACT NEGOTIATOR MAXIM HERNANDEZ M.D.Performed By: #### BMP, CBC #### [address] [address] USABasophils/100 leukocytes in Blood by Automated count Ordered By: Muna Greene on 05-53-4225Ahwrksehd/100 WBC (Bld)0.2 %Normal. [facility] SystemComment on above:Performed By: #### BMP, CBC #### [address] [address] USABioFire Not Detectedon 94-49-7810AvcSmkt Not DetectedNot detectedNormalNot DetecteThe [facility] Physician GroupComment on above:Order Comment: Faxed Results to [facility] [phone] at 7146 on 05/09/25Result Comment: This is a duplicate RP2.1 COVID (PCR) result to be used for statistical tracking purpose only. PERFORMED BY: [address] [address] PATHOLOGIST CONTRACT NEGOTIATOR MAXIM HERNANDEZ M.D.Performed By: #### CBC #### [address] [address] USACalcium [Mass/volume] in Serum or PlasmaOrdered By: Muna Greene on 42-24-6917Lphgmch [Mass/Vol]9.7 mg/dLNormal8.6-10.3FUC Medical CenterComment on above:Performed By: #### BMP, CBC #### [facility] [address] [place] [address] USACarbon dioxide, total [Moles/volume] in Serum or Plasma Ordered By: Muna Greene on 61-89-6225AB4 [Moles/Vol]22.1 mmol/QWjejdp39.0-31.0 [facility] SystemComment on above:Performed By: #### BMP, CBC #### [facility] [address] [place] [address] USAChloride [Moles/volume] in Serum or PlasmaOrdered By: Muna Greene on 01-57-1078Bczfnphy [Moles/Vol]105 mmol/IIrfabv30-832UvubjkvcsTrinity Health SystemComment on above:Performed By: #### BMP, CBC #### [place] [address] USAComplete Blood Count Auto Diffon 48-94-7882Alrc Corpuscular HGB Conc34.6 g/kTRafgid86.5-35.6The [facility] Physician GroupComment on above:Performed By: #### BMP, CBC #### [place] [address] USAMonocytes/100 WBC (Bld)19.32 %Normal0.00-20.00The [facility] Physician GroupComment on above:Performed By: #### BMP, CBC #### [place] [address] USANRBC%0.0 /100{WBC}Normal0-0.5The [facility] Physician Group Comment on above:Performed By: #### BMP, CBC #### [place] [address] USAWhite Blood Count2.8 [CFU]/mLLow4.1-10.5The [facility] Physician GroupComment on above:Performed By: #### BMP, CBC #### [place] [address] USACreatinine [Mass/volume] in Serum or PlasmaOrdered By: Muna Greene on 08-44-5094Jutzgmykkh [Mass/Vol]0.88 mg/dLNormal0.70-1.30 [facility] SystemComment on above:Performed By: #### BMP, CBC #### [facility] [address] [place] [address] USAECG 12 lead ECGon 61-23-7008CGE 12 lead ECGMERCY HEALTH [facility] [address] [place] [address] Electrocardiograph Report Signed Patient: Tristin Powell MR#: [id number] : 1940 Acct:[id number] Age/Sex: 85 / M ADM Date: 05/02/25 Loc: Room: [address] [place] [address] Type: ADM INOo Attending Dr: Adiel Mccollum [...] previous ECGs available Confirmed by Kaylie Gifford ([id number]) on 05/03/2025 1:49:52 AM Referred By: Electronically Signed By: Kaylie Gifford Transcribed By: MUS Signed By Kaylie Gifford DO 05/03 [address] Physician GroupEosinophils [#/volume] in Blood by Automated countOrdered By: Muna Greene on 37-52-8759Kwjliydnmog (Bld) [#/Vol] 0.0 10*3/uLNormal0.0-0.45[facility] Health SystemComment on above: Performed By: #### BMP, CBC #### [facility] [address] [place] [address] USAEosinophils/100 leukocytes in Blood by Automated count Ordered By: Muna Greene on 03-67-1689Azwmjyswzfr/100 WBC (Bld)0.1 %Normal. [facility] Health SystemComment on above:Performed By: #### BMP, CBC #### [place] [address] USAErythrocyte distribution width [Ratio] by Automated count Ordered By: Muna Greene on 30-32-4970Fbnwbcmexmy distribution width (RBC) [Ratio]15.9 %High12.0-14.8Tr[facility] Health SystemComment on above: Performed By: #### BMP, CBC #### [place] [id number] USAErythrocytes [#/volume] in Blood by Automated countOrdered By: Muna Greene on 09-24-9425KRY (Bld) [#/Vol]3.65 10*6/uLLow3.90-5.60 [facility] SystemComment on above:Performed By: #### BMP, CBC #### [place] [address] USAFerritinon 50-66-8525Jstkqxme [Mass/Vol]211.0 ng/mLNormal 23.9-336.2The [facility] Physician GroupComment on above:Performed By: #### FOL, PT, CBC, BMP, HS TROP, BNP, B12, TIBC, FE, MARI ####[place] [id number] [place] [id number] USAFolateon 61-39-1551Ihrqpw07.2 ng/mL Normal>5.9The [facility] Physician [facility] HospitalComment on above:Result Comment: Folate reference range: >5.9 ng/ml The WHO technical consultation on folate and vitamin b12 deficiencies has determined that folate concentrations less than 4 ng/ml are considered deficient. PERFORMED BY: [place] [address] PATHOLOGIST CONTRACT NEGOTIATOR MAXIM HERNANDEZ M.D.Performed By: #### FOL, PT, CBC, BMP, HS TROP, BNP, B12, TIBC, FE, MARI ####[place] [id number] USAGlomerular filtration rate [Volume Rate/Area] in Serum, Plasma or Blood by CreatinineOrdered By: Muna Greene on 96-48-2552Zjwykkppxt filtration rate [Volume Rate/Area] in Serum, Plasma or Blood by Creatinine> 60.0 mL/MinTrinity Health SystemGlucose [Mass/volume] in Serum or PlasmaOrdered By: Muna Greene on 00-46-9748Nlpfqwm [Mass/Vol]164 mg/kFWrij40-214BxeiabjezTrinity Health SystemComment on above:ADA recommended reference rangeRandom Glucose Reference Range is dependent on time and content of last meal. Glucose of more than 200 mg/dL in a nonstressed, ambulatory subject supports the diagnosisof Diabetes Mellitus.Result Comment: Random Glucose Reference Range is dependent on time and content of last meal. Glucose of more than 200 mg/dL in a nonstressed, ambulatory subject supports the diagnosis of Diabetes Mellitus. ADA recommended reference rangePerformed By: #### BMP, CBC #### [address] [address] USAHematocrit [Volume Fraction] of Blood by Automated count Ordered By: Muna Greene on 45-93-7939Ledmpvvzuj (Bld) [Volume fraction]34.1 % Low38.8-50.0Tr[facility] Health SystemComment on above:Performed By: #### BMP, CBC #### [facility] [address] [place] [address] USAHemoglobin [Mass/volume] in BloodOrdered By: Muna Greene on 32-67-7434Xdqrnfigsp (Bld) [Mass/Vol]11.8 g/dLLow13.0-17.0Tr[facility] Health SystemComment on above:Performed By: #### BMP, CBC #### [address] [address] USAINR in Platelet poor plasma by Coagulation assayOrdered By: Muna Greene on 25-09-5575LXW Coag (PPP) [Relative time]1.2 {INR}Normal [facility] Health SystemComment on above:INR Therapeutic Range A) Pre- and Peroperative OAT started two weeks before surgery. NOT HIP SURGERY: 1.5 - 2.5 HIP SURGERY: 2 - 3B) Primary and secondary prevention of venous THROMBOSIS: 2 - 3C) Active venous thrombosis, pulmonary embolismand prevention of recurrent venous thrombosis: 2 - 3D) Prevention of arterial thromboembolismincluding patients with mechanical heart valves: 3 - 4.5Result Comment: INR Therapeutic Range A) Pre- and [...] heart valves: 3 - 4.5 PERFORMED BY: [place] [address] PATHOLOGIST CONTRACT NEGOTIATOR MAXIM HERNANDEZ M.D.Performed By: #### BMP, CBC #### [place] [address] USAIronon 82-43-0136Pcct [Mass/Vol]21 ug/iSOpl74-720Kbl [facility] Physician GroupComment on above:Performed By: #### BMP, CBC #### [place] [id number] USALeukocytes [#/volume] corrected for nucleated erythrocytes in Blood by Automated counOrdered By: Muna Greene on 62-04-0242SWY corrected for nucl RBC Auto (Bld) [#/Vol]2.8 10*3/uLLow4.1-10.5FUC Medical CenterLeukocytes [#/volume] in Blood by Automated countOrdered By: Muna Greene on 14-66-8378XRQ (Bld) [#/Vol]2.8 10*3/uLLow4.1-10.5FUC Medical CenterComment on above:Performed By: #### BMP, CBC #### [facility] [address] [place] [address] USALymphocytes [#/volume] in Blood by Automated countOrdered By: Muna Greene on 57-72-3286Tcyrmzrfmgp (Bld) [#/Vol]0.3 10*3/uLLow1.00-4.8 [facility] SystemComment on above:Performed By: #### BMP, CBC #### [facility] [address] [place] [id number] USALymphocytes/100 leukocytes in Blood by Automated count Ordered By: Muna Greene on 83-20-9503Cmwgghpdkkc/100 WBC (Bld)9.8 %Normal. [facility] SystemComment on above:Performed By: #### BMP, CBC #### [facility] [address]H [Entitic mass] by Automated countOrdered By: Muna Greene on 74-05-6089XOH (RBC) [Entitic mass]32.3 vpDaexkw74.5-35.2FUC Medical CenterComment on above:Performed By: #### BMP, CBC #### [place] [address] USAHC Auto (RBC) [Mass/Vol]Ordered By: Muna Greene on 54-44-8478SSID (RBC) [Mass/Vol]34.6 g/dL32.5-35.6FUC Medical CenterMCV [Entitic volume] by Automated countOrdered By: Muna Greene on 55-40-5481UCD (RBC) [Entitic vol]93.4 zZYehyhz31.5-101[facility] Health SystemComment on above:Performed By: #### BMP, CBC #### [place] [address] USAMonocyte distribution width [Entitic volume] in Blood by AutomatedOrdered By: Muna Greene on 65-64-6401Idzdtwus distribution width Auto (Bld) [Entitic vol]19.32 %0.00-20.00Tr[facility] Health SystemMonocytes [#/volume] in Blood by Automated countOrdered By: Muna Greene on 05-02-2025 Monocytes (Bld) [#/Vol]0.1 10*3/uLNormal0.0-0.8[facility] Comment on above:Performed By: #### BMP, CBC #### [place] [id number] USAMonocytes/100 leukocytes in Blood by Automated count Ordered By: Muna Greene on 47-38-2757Tpvmulvui/100 WBC (Bld)5.1 %Normal. [facility] SystemComment on above:Performed By: #### BMP, CBC #### [facility] [address] [place] [address] USANeutrophils [#/volume] in Blood by Automated countOrdered By: Muna Greene on 67-29-9107Ktakobbyuup (Bld) [#/Vol]2.3 10*3/uLNormal1.8-7.7 [facility] SystemComment on above:Performed By: #### BMP, CBC #### [facility] [address] [place] [address] USANeutrophils/100 leukocytes in Blood by Automated count Ordered By: Muna Greene on 22-52-6424Gexmerhjwzv/100 WBC (Bld)84.8 %Normal. [facility] Health SystemComment on above:Performed By: #### BMP, CBC #### [facility] [address] [place] [address] USANo Panel InformationOrdered By: Muna Greene on 05-02-2025 Pharmacy Creatinine Clearance (Chem79.92[facility] Nucleated erythrocytes [Presence] in Blood by Automated countOrdered By: Muna Greene on 76-15-5184Hjgobbiza RBC Auto Ql (Bld)0.0 /100{WBC}0-0.5FUC Medical CenterPlatelet mean volume [Entitic volume] in Blood by Automated countOrdered By: Muna Greene on 57-19-1627Ekslxlwe mean volume (Bld) [Entitic vol]7.2 fLNormal6.6-10.1FUC Medical CenterComment on above:Performed By: #### BMP, CBC #### [facility] [address] [place] [address] USAPlatelets [#/volume] in Blood by Automated countOrdered By: Muna Greene on 26-30-0339Jepqpuvmk (Bld) [#/Vol]219 10*3/pMFgjceo822-518 [facility] SystemComment on above:Performed By: #### BMP, CBC #### [facility] [address] [place] [address] USAPotassium [Moles/volume] in Serum or PlasmaOrdered By: Muna Ramona on 08-86-1123Kmxfwrjzb [Moles/Vol]4.9 mmol/LNormal3.5-5.1FUC Medical CenterComment on above:Performed By: #### BMP, CBC #### [facility] [address] [place] [id number] USAProthrombin time (PT)Ordered By: Muna Greene on 88-63-3437AA Coag (PPP) [Time]14.1 sHigh9.0-12.9[facility] Health SystemComment on above:A hematocrit value greater than 55% may lead to inaccurate results in coagulation testing. Patientshaving hematocrit values >55% require a special collection tube for coagulation studies. Please contact the laboratory at [phone] for redraw instructions.Result Comment: A hematocrit value greater than 55% may lead to inaccurate results in coagulation testing. Patients having hematocrit values >55% require a special collection tube for coagulation studies. Please contact the laboratory at [phone] for redraw instructions.Performed By: #### BMP, CBC #### [facility] [address] [place] [address] USARespiratory (Upper) Panel, PCRon 60-66-5681Saogidatauz (Upper) Panel, PCRFaxed Results to [facility] [phone] at 1525 on 05/09/25 Adenovirus Not detected Bordetella parapertussis [...] COVID-19 Detected/Not Detected Not detected Blank Space FLUA TEST INCLUDES Influenza A tests for the following clinically FLUA TEST INCLUDES significant subtypes: FLUA TEST INCLUDES - Influenza A FLUA TEST INCLUDES - Influenza A H1 FLUA TEST INCLUDES - Influenza A H1 2009 FLUA TEST INCLUDES - Influenza A H3 Blank Space PERFORMED BY: [place] [address] PATHOLOGIST CONTRACT NEGOTIATOR MAXIM HERNANDEZ M.D.NormalThe [facility] Physician GroupComment on above: Performed By: #### CBC #### [facility] [address] [place] [address] USAReticulocyte Counton 53-66-1625Piktypchoiix Number0.046 10*6/uLNormal0.024-0.084The [facility] Physician GroupComment on above:Order Comment: Comment Add-onResult Comment: PERFORMED BY: [place] [address] PATHOLOGIST CONTRACT NEGOTIATOR MAXIM HERNANDEZ M.D.Performed By: #### BMP, CBC #### [facility] [address] [place] [address] USAReticulocyte Percent1.2 %Normal0.5-1.5The [facility] Physician GroupComment on above:Order Comment: Comment Add-onPerformed By: #### BMP, CBC #### [facility] [address] [place] [address] USASerum or plasma anion gap determinationOrdered By: Muna Greene on 33-92-5004Tghal gap [Moles/Vol]13.8 mmol/LNormal6.0-15.0Tr[facility] Health SystemComment on above:Performed By: #### BMP, CBC #### [place] [address] USASodium [Moles/volume] in Serum or PlasmaOrdered By: Munageovani Greene on 36-50-0918Jyyqnv [Moles/Vol]136 mmol/OCtsixz348-038RkygofthbTrinity Health SystemComment on above:Performed By: #### BMP, CBC #### [place] [address] USATotal Iron Binding Capacityon 38-47-7834Xzsvd Iron Binding Xjzwdcnx037 ug/nKLykpml214-947Tzs [facility] Physician GroupComment on above: Performed By: #### BMP, CBC #### [place] [address] USATransferrin [Mass/Vol]192 mg/bDBmc391-428Umz [facility] Physician [facility] HospitalComment on above:Performed By: #### BMP, CBC #### [place] [address] USATroponin I High Sensitivityon 30-62-6921Apwqdvol I High Qncyyguqtww14Jkve8-41Qlt [facility] Physician [facility] HospitalComment on above:Result Comment: The Troponin units of report have been changed to meet the Chest Pain Accreditation requirement, element EC5.M1l2. Troponin units are changed from pg/ml to ng/L. Also, the decimal is removed and results are in whole numbers. PERFORMED BY: [place] [address] PATHOLOGIST CONTRACT NEGOTIATOR MAXIM HERNANDEZ M.D.Performed By: #### MRSA - MSSA PCR #### [place] [address] USATroponin I High Pvewvjmvqdx05Tcpq6-17Iro [facility] Physician GroupComment on above:Result Comment: The Troponin units of report have been changed to meet the Chest Pain Accreditation requirement, element EC5.M1l2. Troponin units are changed from pg/ml to ng/L. Also, the decimal is removed and results are in whole numbers. PERFORMED BY: [place] [address] PATHOLOGIST CONTRACT NEGOTIATOR MAXIM HERNANDEZ M.D.Performed By: #### CBC #### [facility] [address] [place] [address] USATroponin I High Fyufwnyjjpm07Olhn7-46Iqk [facility] Physician GroupComment on above:Result Comment: The Troponin units of report have been changed to meet the Chest Pain Accreditation requirement, element EC5.M1l2. Troponin units are changed from pg/ml to ng/L. Also, the decimal is removed and results are in whole numbers. PERFORMED BY: [facility] [address] [place] [address] PATHOLOGIST CONTRACT NEGOTIATOR MAXIM HERNANDEZ M.D.Performed By: #### BMP, CBC #### [facility] [address] [place] [address] USATroponin I.cardiac [Mass/volume] in Serum or Plasma by Detection limit <= 0.01 ng/mLOrdered By: Mell Hou on 73-87-6190Dwiajsli I.cardiac DL <= 0.01 ng/mL [Mass/Vol]46 ng/LHigh0-20[facility] Health SystemComment on above:The Troponin units of report have been changed to meet the Chest Pain Accreditation requirement, element EC5.M1l2. Troponin units are changed from pg/ml to ng/L. Also, the decimal is removed and results are in whole numbers.Urea nitrogen [Mass/volume] in Serum or PlasmaOrdered By: Muna Greene on 67-29-9789Nmfe nitrogen [Mass/Vol]17 mg/dLNormal7-25Tr[facility] Health SystemComment on above:Performed By: #### BMP, CBC #### [facility] [address] [place] [id number] USAVitamin B12on 38-07-0692Cagymijoy (Vitamin B12) [Mass/Vol] 269 pg/sXPluleg109-407Wjs [facility] Physician GroupComment on above:Performed By: #### FOL, PT, CBC, BMP, HS TROP, BNP, B12, TIBC, FE, MARI ####[facility] [address] [place] [address] USAX-ray reportOrdered By: Cristian Rodriguez on 47-17-2433Figex reportMERCY HEALTH Main Ririe [address] [place] [address] XRay Report Signed Patient: Tristin Powell MR#: [id number] : 1940 Acct:[id number] Age/Sex: 85 / M ADM Date: 5 Loc: ER Room: Type: [facility] ER Attending Dr: Copies to: Muna Greene [...] Rodriguez M.D. 05/02/2025 4:35 PM Dictation Location: [facility]20 Transcribed By: [facility] 05/02/25 1635 Dictated By: Cristian Rodriguez DO 05/02/25 1633 Signed By: 05/02/25 1635 [facility] 2[facility]*on 52-96-9163VM chest 2V*[facility] Main [address] [address] XRay Report Signed Patient: Tristin Powell MR#: [id number] : 1940 Acct:[id number] Age/Sex: 85 / M ADM Date: 05/02/25 Loc: ER Room: Type: [facility] ER Attending Dr: Copies to: Muna Greene [...] Rodriguez M.D. 05/02/2025 4:35 PM Dictation Location: [facility] Transcribed By: [facility] 05/02/25 1635 Dictated By: Cristian Rodriguez DO 05/02/25 1633 Signed By: 05/02/25 1635[facility] Physician GroupSANGER [facility] BASIC METABOLIC PANELon 57-91-2749Clhzz gap [Moles/Vol]13.9 mmol/LNOMS HealthcareCalcium [Mass/Vol]9.3 mg/dL8.5 - 10.1 mg/dLNOMS HealthcareChloride [Moles/Vol]106 mmol/L98 - 107 mmol/LNOMS HealthcareCO2 [Moles/Vol]24.9 mmol/L21.0 - 32.0 mmol/LNOMS Healthcare Creatinine [Mass/Vol]1.04 mg/dL0.70 - 1.30 mg/dLNOAL HealthcareGFR/1.73 sq M.predicted CKD-EPI (S/P/Bld) [Vol rate/Area]>60>=60 mL/min/1.73m 2NOMS HealthcareGlucose [Mass/Vol]103 mg/dL74 - 106 mg/dLNOAL HealthcarePotassium [Moles/Vol]4.8 mmol/L3.5 - 5.1 mmol/LNOMS HealthcareSodium [Moles/Vol]140 mmol/L 136 - 145 mmol/LNOMS HealthcareTBH EGFR-NON AF MALIAN>60>=60 mL/min/1.73m 2 NOMS HealthcareUrea nitrogen [Mass/Vol]13 mg/dL7.0 - 18.0 mg/dLNOAL Healthcare Urea nitrogen/Creatinine [Mass ratio]12.5 mg/mgNOMS HealthcareCLINISYNCNOMS HealthcareALL C REACTIVE PROTEINon 04-30-2025 REACTIVE PROTEIN3.08 mg/dLHigh NINF - 0.50 mg/dLNOAL HealthcareInterpretation and review of laboratory results AbnormalNOMS HealthcareCLINISYNCNOMS HealthcareUS ANKLE/BRACHIAL INDICES EXTREMITY LIMITEDon 62-09-9907PD ANKLE/BRACHIAL INDICES EXTREMITY LIMITEDPatient Info Name: Tristin Powell Age: 85 years : 1940 Gender: Male Exam Date: 04/23/2025 12:53 PM Patient Status: OUTPATIENT Site Location: [facility] Indications I73.9 - Peripheral vascular disease, unspecified I70.229 - 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 Stock Cutter: Ying Fiore RDCS, RVT Staff Ordering Physician: [...] Segmental BP RIGHT Brachial A mmH RIGHT CSM CONSULTANT mmH RIGHT CSM CONSULTANT Index: 0.96 RIGHT DPA mmH RIGHT DPA Index: 0.92 RIGHT YAMILE Index: 0.96 LEFT Brachial A mmH LEFT CSM CONSULTANT Index: 0.48 LEFT CSM CONSULTANT mmH LEFT DPA Index: 0.61 LEFT DPA mmH LEFT YAMILE Index: 0.61 Doppler RIGHT CSM CONSULTANT Waveform: Multiphasic RIGHT DPA Waveform: Multiphasic LEFT CSM CONSULTANT Waveform: Monophasic LEFT DPA Waveform: Monophasic , PVR RIGHT Ankle Grade: Abnormal RIGHT Transmetarsal Grade: Abnormal LEFT Ankle Grade: Abnormal Report Signatures Finalized by Nemo Conner MD, PHD, RVT on 04/23/2025 02:41 PMNormal [facility] DUPLEX LE BYPASS GRAFT COMPL BILATon 47-08-1767JL DUPLEX LE BYPASS GRAFT COMPL BILATPatient Info Name: Tristin Powell Age: 85 years : 1940 Gender: Male Exam Date: 04/23/2025 12:53 PM Patient Status: OP SERIES Site Location: [facility] Indications I73.9 - Peripheral vascular disease, unspecified I70.229 - Atherosclerosis of [place] arteries of extremities with rest pain, unspecified extremity Procedure Description 27408 Duplex scan of lower extremity arteries or arterial bypass grafts using B-mode, color and spectral Doppler; unilateral or limited study. Stock Cutter: Jigna Vera RDMS, RVT Staff Ordering Physician: Mohsen Sarabia MD, RPLUIZA Conclusions * Right. * Less than 50% stenosis in the right femoral-peroneal bypass graft. * Low velocities noted in the right inflow artery and bypass graft. * Left. * Less than 50% stenosis in the left femoral-peroneal bypass graft. * A left proximal calf, mixed echogenic, non-vascular lesion measuring 5.1x3.4 cm noted. Correlate clinically. Prior Study Date: 03/14/2025 Measurements RIGHT AYMILE Index: 0.96 LEFT YAMILE Index: 0.61 Graft [...] Artery Segment: Gabriela LEFT Inflow Artery Segment: INDUSTRIAL YARD BRAKE COUPLER LEFT Inflow Artery PSV: 126 LEFT Inflow [...] Leonard MD, RPVI, RVT on 04/23/2025 02:41 PMNormalRiversProMedica Flower HospitalXR FOOT RT MIN 3Von 35-89-2659Hih[address] [place] [address] XRay Report Signed Patient: TRISTIN POWELL MR#: [id number] : 1940 Acct:[id number] Age/Sex: 85 / M ADM Date: 04/15/25 Loc: RAD Attending Dr: Savanna Feliz D.P.M. Ordering Physician: Savanna Feliz D.P.M. Date of Service: 04/15/25 Procedure(s): XR foot RT min 3V Accession Number(s): [id number] cc: FLASH LOVELACE ; Savanna Feliz D.P.M. The [address] [address] Patient Name: TRISTIN POWELL MRN: [id number] date: 1940 Sex: M Assigned Patient Location: [facility] Current Patient Location: Accession/Order Number: [id number] Exam Date: 04/16/2025 12:46 Report Date: 04/16/2025 12:49 At the request of: SAVANNA FELIZ DPJim Procedure: XR foot RT min 3V 3 [...] Rodriguez M.D. 04/16/2025 12:49 PM Dictation Location: [place] [address] Electronically authenticated by: [id number] Y Date: 04/16/2025 12:49 Dictated By: Cristian Rodriguez D.O. Signed By: 04/16/25 1252 DD/ 1249 TD/TT: Hairspring Adjuster:HARINIHRadiology, Radiologist, - 04/16/2025 [place] [address] XRay Report Signed Patient: TRISTIN POWELL MR#: [id number] : 1940 Acct:[id number] Age/Sex: 85 / M ADM Date: 04/15/25 Loc: RAD Attending Dr: Savanna Feliz D.P.M. Ordering Physician: Savanna Feliz D.P.M. Date of Service: 04/15/25 Procedure(s): XR foot RT min 3V Accession Number(s): [id number] cc: FLASH LOVELACE ; Savanna Feliz D.P.M. [place] [address] Patient Name: TRISTIN POWELL MRN: [id number] date: 1940 Sex: M Assigned Patient Location: [facility] Current Patient Location: Accession/Order Number: [id number] Exam Date: 04/16/2025 12:46 Report Date: 04/16/2025 12:49 At the request of: SAVANNA FELIZ DPJim Procedure: XR foot RT min 3V 3 [...] Rodriguez M.D. 04/16/2025 12:49 PM Dictation Location: [place] [address] Electronically authenticated by: [id number] Y Date: 04/16/2025 12:49 Dictated By: Cristian Rodriguez D.O. Signed By: 04/16/25 1252 DD/ 1249 TD/TT: Hairspring Adjuster: JAE HealthcareRadiology Study observation (narrative)NOMS HealthcareXR FOOT RT MIN 3VOrdered By: Radiologist Radiology on 82-12-8829WIMS Healthcare Work Phone: all CBC WITH AUTO DIFFon 52-79-4692NVICXGPPC ABSOLUTE RMXB7WOSX HealthcareBasophils/100 WBC (Bld)0.6 %0.2 - 2.0 %NOM[facility] Healthcare Eosinophils/100 WBC (Bld)5.9 %0.9 - 7.0 %NOMS HealthcareErythrocyte distribution width (RBC) [Ratio]15.2 %High11.0 - 15.0 %NOMS HealthcareHematocrit (Bld) [Volume fraction]35.1 %Low42.0 - 54.0 %NOMS HealthcareHemoglobin (Bld) [Mass/Vol]11.8 g/dLLow14.0 - 18.0 g/dLNOAL HealthcareIMMATURE GRANULOCYTES ABS AUTO0.02NOMS HealthcareImmature granulocytes/100 WBC (Bld)0.6 %High0.0 - 0.5 % NOMS HealthcareInterpretation and review of laboratory resultsAbnormalNOAL HealthcareLYMPHOCYTES ABSOLUTE AUTO0.8LowNOMS HealthcareLymphocytes/100 WBC (Bld)24.1 %20.5 - 60.0 %NOMCarondelet HealthH (RBC) [Entitic mass]31.2 pg25.9 - 34.0 pgNOCenterpoint Medical CenterHC (RBC) [Mass/Vol]33.6 g/dL29.9 - 35.2 g/dLWright Memorial HospitalMCV (RBC) [Entitic vol]92.9 fL80.0 - 94.0 fLNOAL HealthcareMONOCYTES ABSOLUTE AUTO0.6NOMS HealthcareMonocytes/100 WBC (Bld)18.9 %High1.7 - 12.0 %NOMS HealthcareNEUTROPHILS ABSOLUTE AUTO1.6NOMS HealthcareNeutrophils/100 WBC (Bld) 49.9 %43.0 - 75.0 %NOM HealthcarePlatelet mean volume (Bld) [Entitic vol]8.9 fL Low9.5 - 13.5 fLNOEllett Memorial HospitalTBH EO #0.2NOMS HealthcareTB [id number] [facility] CenterTB RBC3.78LowNOMS [facility] Medical CenterTB WBC3.2LowNOMS HealthcareCLINISYNCNOMS HealthcareMR FOOT RIGHT WO IV CONTRASTon 72-29-4647AL FOOT RIGHT WO IV CONTRAST EXAM: MR [...] osteomyelitis is not excluded. ELECTRONICALLY SIGNED BY: Mckenna BaermalNot AvailableHERPES SIMPLEX VIRUS 1on 86-49-5692EPODMS SIMPLEX VIRUS 10NOMS HealthcareHERPES SIMPLEX VIRUS 1 Not detectedNOMS HealthcareHERPES SIMPLEX VIRUS 20NOMS HealthcareHERPES SIMPLEX VIRUS 2Not detectedNOMS HealthcareHUMAN MONKEYPOX [id number] HealthcareHUMAN MONKEYPOX VIRUSNot detectedNOMS HealthcareVARICELLA ZOSTER VIRUS (HUMAN HERPESVIRUS 3)0NOMS HealthcareVARICELLA ZOSTER VIRUS (HUMAN HERPESVIRUS 3)Not detectedNOMS HealthcareNOMS HealthcareBASIC METABOLIC PANELon 55-01-4720Xchzi gap [Moles/Vol]14 mmol/LRabqnn70-91Lpupcmeyq [facility] BrownwoodComment on above: Order Comment: [facility] has implemented the eGFR calculation approach that does not have a coefficient for race that conforms to the NKF-ASN Task Force Recommendations.Performed By: #### [id number] ####[facility] [address] [place] [address] Emmanuel Plata M.D. [id number] [Mass/Vol]9.4 mg/dLNormal8.4-10.2[facility] BrownwoodComment on above:Order Comment: [facility] has implemented the eGFR calculation approach that does not have a coefficient for race that conforms to the NKF-ASN Task Force Recommendations.Performed By: #### 37406 ####[address] [address] Emmanuel Plata M.D. [id number] [Moles/Vol] 108 mmol/EOlkcqs57-894NvpknoxhwMemorial Health System [facility] on above:Order Comment: [facility] has implemented the eGFR calculation approach that does not have a coefficient for race that conforms to the NKF-ASN Task Force Recommendations.Performed By: #### [address]300 ####[address] [address] Emmanuel Plata M.D. [id number] [Mass/Vol]0.98 mg/dLNormal0.80-1.30 [facility] on above:Order Comment: [facility] has implemented the eGFR calculation approach that does not have a coefficient for race that conforms to the NKF-ASN Task Force Recommendations.Performed By: #### [id number] ####[address] [address] Emmanuel Plata M.D. [id number] mL/min/1.73 v3Pcqssc>=60RiMemorial Health System Selby General Hospital on above:Order Comment: [facility] has implemented the eGFR calculation approach that does not have a coefficient for race that conforms to the NKF-ASN Task Force Recommendations.Result Comment: Estimated GFR was calculated using the 2020 CKD-EPI creatinine equation.Performed By: #### 79[address] ####[address] [address] Emmanuel Plata M.D. [id number] [Mass/Vol]109 mg/fLZsqo73-11 [facility] on above:Order Comment: [facility] has implemented the eGFR calculation approach that does not have a coefficient for race that conforms to the NKF-ASN Task Force Recommendations.Performed By: #### 75424 ####[facility] [address] [place], [place] [address] Emmanuel Plata M.D. [id number] (Bld) [Moles/Vol]22 mmol/NOjbrri16-37PdmyzxsslCrystal Clinic Orthopedic Center Comment on above:Order Comment: [facility] has implemented the eGFR calculation approach that does not have a coefficient for race that conforms to the NKF-ASN Task Force Recommendations.Performed By: #### [id number] ####[facility] [address] [place] [address] Emmanuel Plata M.D. [id number] [Moles/Vol]4.0 mmol/L Normal3.5-5.1RLima City HospitalComment on above:Order Comment: [facility] has implemented the eGFR calculation approach that does not have a coefficient for race that conforms to the NKF-ASN Task Force Recommendations.Result Comment: Slightly HemolyzedPerformed By: #### 48602 ####[facility] [address] [place], [place] [address] Emmanuel Plata M.D. [id number] [Moles/Vol]140 mmol/LNormal 135-145RiCrystal Clinic Orthopedic CenterComment on above:Order Comment: [facility] has implemented the eGFR calculation approach that does not have a coefficient for race that conforms to the NKF-ASN Task Force Recommendations.Performed By: #### 27698 ####[facility] [address] [place], [place] [address] Emmanuel Plata M.D. [id number] nitrogen [Mass/Vol]19 mg/dLNormal8-25RiCrystal Clinic Orthopedic Center Comment on above:Order Comment: [facility] has implemented the eGFR calculation approach that does not have a coefficient for race that conforms to the NKF-ASN Task Force Recommendations.Performed By: #### 47741 ####[facility] [address] [place] [address] Emmanuel Plata M.D. [id number] nitrogen/Creatinine [Mass ratio]19.4 mg/esYuuzsv21.0-20.0RiCrystal Clinic Orthopedic CenterComment on above: Order Comment: [facility] has implemented the eGFR calculation approach that does not have a coefficient for race that conforms to the NKF-ASN Task Force Recommendations.Performed By: #### 71085 ####[facility] [address] [place] [address] Emmanuel Plata M.D. [id number] metabolic 2000 panelOrdered By: Beka Aiken on 43-71-4024Amznf gap [Moles/Vol]14 mmol/L10 - 20 mmol/LOhioHealth Calcium [Mass/Vol]9.4 mg/dL8.4 - 10.2 mg/dLOhioHealthChloride [Moles/Vol]108 mmol/L98 - 108 mmol/LOhioHealthCreatinine [Mass/Vol]0.98 mg/dL0.80 - 1.30 mg/dL [facility] HospitalGFR/1.73 sq M.predicted CKD-EPI (S/P/Bld) [Vol rate/Area]75- PINF [facility] HospitalComment on above:Estimated GFR was calculated using the 2020 CKD-EPI creatinine equation.Glucose [Mass/Vol]109 mg/iYWrqj76 - 99 mg/dLOhioHealthHCO3 [Moles/Vol]22 mmol/L21 - 32 mmol/LOhioHealthInterpretation and review of laboratory resultsAbnormalOhioHealthPotassium [Moles/Vol]4 mmol/L3.5 - 5.1 mmol/LOhioHealthComment on above:Slightly HemolyzedSodium [Moles/Vol]140 mmol/L 135 - 145 mmol/LOhioHealthUrea nitrogen [Mass/Vol]19 mg/dL8 - 25 mg/dLOhioHealth Urea nitrogen/Creatinine [Mass ratio]19.4 mg/mg10.0 - 20.0OhioHolmes County [facility] has implemented the eGFR calculation approach that does not have a coefficient for race that conforms to the NKF-ASN Task Force Recommendations.[facility] 71-26-0276XSYC NRBC0.0 %NormalRiCrystal Clinic Orthopedic CenterComment on above:Performed By: #### 90027 #### [facility] [address] [place] [address] Emmanuel Plata M.D. [id number] NRBC ABS COUNT0.00 K/mcLNormal0.00-0.00RiAultman Alliance Community Hospital HospitalComment on above:Performed By: #### 87679 #### [facility] [address] [place] [address] Emmanuel Plata M.D. [id number] distribution width (RBC) [Ratio]13.7 %Pbdfox86.6-14.8 [facility] HospitalComment on above:Performed By: #### 33103 #### [facility] [address] [place] [address] Emmanuel Plata M.D. [id number] (Bld) [Volume fraction]30.0 %Low41.0-53.0RiversLake County Memorial Hospital - West HospitalComment on above:Performed By: #### 96316 #### [facility] [address] [place] [address] Emmanuel Plata M.D. [id number] (Bld) [Mass/Vol]10.5 g/dLLow13.5-17.5RiAultman Alliance Community Hospital HospitalComment on above:Performed By: #### 87083 #### [facility] [address] [place], [place] [address] Emmanuel Plata M.D. [id number] (RBC) [Entitic mass]33.2 olYjgvzw28.0-34.0RiAultman Alliance Community Hospital HospitalComment on above:Performed By: #### 73335 #### [facility] [address] [place] [address] Emmanuel Plata M.D. [id number] (RBC) [Entitic vol]94.9 dUCtxinc80.0-100.0RiAultman Alliance Community Hospital HospitalComment on above:Performed By: #### 25762 #### [facility] [address] [place] [address] Emmanuel Plata M.D. [id number] CORPUSCULAR HEMOGLOBIN CONC35.0 g/gLNknbfs86.0-37.0RiAultman Alliance Community Hospital HospitalComment on above:Performed By: #### 64532 #### [facility] [address] [place] [address] Emmanuel Plata M.D. [id number] mean volume (Bld) [Entitic vol]9.7 fLNormal9.4-12.4RiversLake County Memorial Hospital - West HospitalComment on above:Performed By: #### 72647 #### [facility] [address] [place] [address] Emmanuel Plata M.D. [id number] (Bld) [#/Vol]213 10*3/lARbjxgg638-785Bmzfhfcwl Methodist HospitalComment on above:Performed By: #### 14196 #### [facility] [address] [place] [address] Emmanuel Plata M.D. [id number] (Bld) [#/Vol]3.16 10*6/uLLow4.50-5.90RiCrystal Clinic Orthopedic Center Comment on above:Performed By: #### 77505 #### [facility] [address] [place] [address] Emmanuel Plata M.D. [id number] (Bld) [#/Vol]4.33 10*3/uLLow4.50-11.00[facility] Comment on above:Performed By: #### 76791 #### [facility] [address] [place] [address] Emmanuel Plata M.D. [id number] panel Auto (Bld)on 85-44-6465Lgvwlcicfuc distribution width (RBC) [Entitic vol]13.7 %11.6 - 14.8 %OhioHealthHematocrit (Bld) [Volume fraction]30 % Low41.0 - 53.0 %OhioHealthHemoglobin (Bld) [Mass/Vol]10.5 g/dLLow13.5 - 17.5 g/dLOhioHealthInterpretation and review of laboratory resultsAbnormalOhioHealth MCH (RBC) [Entitic mass]33.2 pg26.0 - 34.0 pgOhioHealthMCHC (RBC) [Mass/Vol]35 g/dL31.0 - 37.0 g/dLOhioHealthMCV (RBC) [Entitic vol]94.9 fL80.0 - 100.0 fL OhioHealthNucleated RBC (Bld) [#/Vol]0 10*3/uLOhioHealthNucleated RBC/100 WBC (Bld) [Ratio]0 %OhioHealthPlatelet mean volume (Bld) [Entitic vol]9.7 fL9.4 - 12.4 fLOhioHealthPlatelets (Bld) [#/Vol]213 10*3/uLOhioHealthRBC (Bld) [#/Vol] 3.16 10*6/uLLowOhioHealthWBC (Bld) [#/Vol]4.33 10*3/uLLowOhioHealthOhioHealth MAGNESIUM LEVELon 21-61-9709Vtwatuhpa [Mass/Vol]2.1 mg/dLNormal1.6-2.4RLima City HospitalComment on above:Performed By: #### 98949 #### [facility] [address] [place] [address] Emmanuel Plata M.D. [id number] 24-19-7691Ynhuygiez [Mass/Vol]2.1 mg/dL1.6 - 2.4 mg/dL OhioHealthMagnesium [Mass/Vol]on 04-49-7869Kpmibqkvyqeaam and review of laboratory resultsNormalOhioHealthNo Panel Informationon 96-20-7441OyyfEnajsp BASIC METABOLIC PANELon 12-39-6991Wmeyt gap [Moles/Vol]14 mmol/MIgmdgz00-[address] [facility] Medical CenterComment on above:Order Comment: [facility] has implemented the eGFR calculation approach that does not have a coefficient for race that conforms to the NKF-ASN Task Force Recommendations.Performed By: #### 82383 #### [facility] [address] [place] [address] Emmanuel Plata M.D. [id number] [Mass/Vol]8.5 mg/dLNormal8.4-10.2RiversProMedica Flower Hospital Comment on above:Order Comment: [facility] has implemented the eGFR calculation approach that does not have a coefficient for race that conforms to the NKF-ASN Task Force Recommendations.Performed By: #### 07328 #### [facility] [address] [place] [address] Emmanuel Plata M.D. [id number] [Moles/Vol]107 mmol/CErnlyn66-361JrloqkjkxCrystal Clinic Orthopedic Center Comment on above:Order Comment: [facility] has implemented the eGFR calculation approach that does not have a coefficient for race that conforms to the NKF-ASN Task Force Recommendations.Performed By: #### 34417 #### [facility] [address] [place] [address] Emmanuel Plata M.D. [id number] [Mass/Vol]0.97 mg/dLNormal0.80-1.30RiCrystal Clinic Orthopedic CenterComment on above:Order Comment: [facility] has implemented the eGFR calculation approach that does not have a coefficient for race that conforms to the NKF-ASN Task Force Recommendations.Performed By: #### 05695 #### [facility] [address] [place] [address] Emmanuel Plata M.D. [id number] mL/min/1.73 j4Lugohd>=60RiCrystal Clinic Orthopedic CenterComment on above:Order Comment: [facility] has implemented the eGFR calculation approach that does not have a coefficient for race that conforms to the NKF-ASN Task Force Recommendations.Result Comment: Estimated GFR was calculated using the 2020 CKD-EPI creatinine equation.Performed By: #### 57118 #### [facility] [address] [place], [place] [address] Emmanuel Plata M.D. [id number] [Mass/Vol]97 mg/wFItzdkj26-25UjfmlpllyMercy Health St. [facility] Center Comment on above:Order Comment: [facility] has implemented the eGFR calculation approach that does not have a coefficient for race that conforms to the NKF-ASN Task Force Recommendations.Performed By: #### 24622 #### [facility] [address] [place], [place] [address] Emmanuel Plata M.D. [id number] (Bld) [Moles/Vol]22 mmol/KHwnlyl78-51TatdofuclCrystal Clinic Orthopedic Center Comment on above:Order Comment: [facility] has implemented the eGFR calculation approach that does not have a coefficient for race that conforms to the NKF-ASN Task Force Recommendations.Performed By: #### 08647 #### [facility] [address] [place], [place] [address] Emmanuel Plata M.D. [id number] [Moles/Vol]4.1 mmol/LNormal3.5-5.1RLima City HospitalComment on above:Order Comment: [facility] has implemented the eGFR calculation approach that does not have a coefficient for race that conforms to the NKF-ASN Task Force Recommendations.Performed By: #### 79295 #### [facility] [address] [place], [place] [address] Emmanuel Plata M.D. [id number] [Moles/Vol]139 mmol/UNqoyul542-567UufdmeiykCrystal Clinic Orthopedic Center Comment on above:Order Comment: [facility] has implemented the eGFR calculation approach that does not have a coefficient for race that conforms to the NKF-ASN Task Force Recommendations.Performed By: #### 86382 #### [facility] [address] [place] [address] Emmanuel Plata M.D. [id number] nitrogen [Mass/Vol]20 mg/dLNormal8-25RiCrystal Clinic Orthopedic Center Comment on above:Order Comment: [facility] has implemented the eGFR calculation approach that does not have a coefficient for race that conforms to the NKF-ASN Task Force Recommendations.Performed By: #### 80786 #### [facility] [address] [place] [address] Emmanuel Plata M.D. [id number] nitrogen/Creatinine [Mass ratio]20.6 mg/utKosk81.0-20.0RiCrystal Clinic Orthopedic CenterComment on above:Order Comment: [facility] has implemented the eGFR calculation approach that does not have a coefficient for race that conforms to the NKF-ASN Task Force Recommendations.Performed By: #### [id number] #### [facility] [address] [place] [address] Emmanuel Plata M.D. [id number] metabolic 2000 panelon 85-98-9567Psoor gap [Moles/Vol]14 mmol/L 10 - 20 mmol/LOhioHealthCalcium [Mass/Vol]8.5 mg/dL8.4 - 10.2 mg/dLOhioHealth Chloride [Moles/Vol]107 mmol/L98 - 108 mmol/LOhioHealthCreatinine [Mass/Vol]0.97 mg/dL0.80 - 1.30 mg/dLOhioHealthGFR/1.73 sq M.predicted CKD-EPI (S/P/Bld) [Vol rate/Area]76- PINFOhioHealthComment on above:Estimated GFR was calculated using the 2020 CKD-EPI creatinine equation.Glucose [Mass/Vol]97 mg/dL65 - 99 mg/dL OhioHealthHCO3 [Moles/Vol]22 mmol/L21 - 32 mmol/LOhioHealthInterpretation and review of laboratory resultsAbnormalOhioHealthPotassium [Moles/Vol]4.1 mmol/L3.5 - 5.1 mmol/LOhioHealthSodium [Moles/Vol]139 mmol/L135 - 145 mmol/LOhioHealth Urea nitrogen [Mass/Vol]20 mg/dL8 - 25 mg/dLOhioHealthUrea nitrogen/Creatinine [Mass ratio]20.6 mg/inAqgq09.0 - 20.0OhioJ.W. Ruby Memorial HospitalioRiver[facility] has implemented the eGFR calculation approach that does not have a coefficient for race that conforms to the NKF-ASN Task Force Recommendations.[facility] 71-20-3665THON NRBC0.0 %NormalRiAultman Alliance Community Hospital HospitalComment on above: Performed By: #### [id number] #### [facility] [address] [place] [address] Emmanuel Plata M.D. [id number] NRBC ABS COUNT0.00 K/mcLNormal0.00-0.00RiCrystal Clinic Orthopedic CenterComment on above:Performed By: #### [id number] #### [facility] [address] [place] [address] Emmanuel Plata M.D. [id number] distribution width (RBC) [Ratio]13.8 %Ilydzu20.6-14.[address] Vincent Medical CenterComment on above:Performed By: #### [id number] #### [facility] [address] [place], [place] [address] Emmanuel Plata M.D. [id number] (Bld) [Volume fraction]29.1 %Low41.0-53.0RiCrystal Clinic Orthopedic CenterComment on above:Performed By: #### 88411 #### [facility] [address] [place] [address] Emmanuel Plata M.D. [id number] (Bld) [Mass/Vol]10.0 g/dLLow13.5-17.5RiAultman Alliance Community Hospital HospitalComment on above:Performed By: #### [id number] #### [facility] [address] [place] [address] Emmanuel Plata M.D. [id number] (RBC) [Entitic mass]33.3 knOcuosm06.0-34.0RiversLake County Memorial Hospital - West HospitalComment on above:Performed By: #### [id number] #### [facility] [address] [place] [address] Emmanuel Plata M.D. [id number] (RBC) [Entitic vol]97.0 dJLkfnzo73.0-100.0Rivers[facility] Cheondoism HospitalComment on above:Performed By: #### 84659 #### [facility] [address] [place] [address] Emmanuel Plata M.D. [id number] CORPUSCULAR HEMOGLOBIN CONC34.4 g/rXBojewv28.0-37.0Riversmemphis mental [facility] institute Cheondoism HospitalComment on above:Performed By: #### [id number] #### [facility] [address] [place] [address] Emmaunel Plata M.D. [id number] mean volume (Bld) [Entitic vol]9.8 fLNormal9.4-12.4Rivers[facility] Cheondoism HospitalComment on above:Performed By: #### 69631 #### [facility] [address] [place] [address] Emmanuel Plata M.D. [id number] (Bld) [#/Vol]167 10*3/pQWtnoqy121-528Dgqzcdorg Methodist HospitalComment on above:Performed By: #### 72611 #### [facility] [address] [place] [address] Emmanuel Plata M.D. [id number] (Bld) [#/Vol]3.00 10*6/uLLow4.50-5.90RiCrystal Clinic Orthopedic Center Comment on above:Performed By: #### 87795 #### [facility] [address] [place] [address] Emmanuel Plata M.D. [id number] (Bld) [#/Vol]4.86 10*3/uLNormal4.50-11.00RiCrystal Clinic Orthopedic CenterComment on above:Performed By: #### [id number] #### [facility] [address] [place] [address] Emmanuel Plata M.D. [id number] panel Auto (Bld)on 53-49-7594Plzenzmvwym distribution width (RBC) [Entitic vol]13.8 %11.6 - 14.8 %OhioHealthHematocrit (Bld) [Volume fraction]29.1 %Low41.0 - 53.0 %OhioHealthHemoglobin (Bld) [Mass/Vol]10 g/dLLow13.5 - 17.5 g/dL OhioHealthInterpretation and review of laboratory resultsAbnormalOhioHealthMCH (RBC) [Entitic mass]33.3 pg26.0 - 34.0 pgOhioHealthMCHC (RBC) [Mass/Vol]34.4 g/dL31.0 - 37.0 g/dLOhioHealthMCV (RBC) [Entitic vol]97 fL80.0 - 100.0 fL OhioHealthNucleated RBC (Bld) [#/Vol]0 10*3/uLOhioHealthNucleated RBC/100 WBC (Bld) [Ratio]0 %OhioHealthPlatelet mean volume (Bld) [Entitic vol]9.8 fL9.4 - 12.4 fLOhioHealthPlatelets (Bld) [#/Vol]167 10*3/uLOhioHealthRBC (Bld) [#/Vol]3 10*6/uLLowOhioHealthWBC (Bld) [#/Vol]4.86 10*3/uLOhioHealthOhioHealthMAGNESIUM LEVELon 92-77-4046Qnmhmozkc [Mass/Vol]2.2 mg/dLNormal1.6-2.4RLima City HospitalComment on above:Performed By: #### 96219 #### [facility] [address] [address] Emmanuel Plata M.D. [id number] 50-03-1200Yfxfyjdzp [Mass/Vol]2.2 mg/dL1.6 - 2.4 mg/dL FloridaHealthMagnesium [Mass/Vol]on 50-33-5753Cmragnxgyhbyhd and review of laboratory resultsNormalOhioHealthNo Panel Informationon 83-00-0007IuitZzwopbZO ANKLE/BRACHIAL INDICES EXTREMITY LIMITEDon 19-63-5553LP ANKLE/BRACHIAL INDICES EXTREMITY LIMITEDPatient Info Name: Tristin Powell Age: 85 years : 1940 Gender: Male Exam Date: 03/20/2025 8:42 AM Patient Status: INPATIENT Site Location: [facility] Indications I73.9 - Peripheral vascular disease, unspecified Procedure Description 04445 Limited bilateral noninvasive physiologic studies of upper or lower extremity arteries with bidirectional Doppler/PVR waveform analysis at 1-2 levels. Stock Cutter: Maggy Dempsey T Staff Ordering Physician: Beena [...] Segmental BP RIGHT Brachial A mmH RIGHT CSM CONSULTANT mmH RIGHT CSM CONSULTANT Index: 0.53 RIGHT DPA mmH RIGHT DPA Index: 0.57 RIGHT Digit mmH RIGHT YAMILE Index: 0.57 RIGHT TBI Index: 0.00 LEFT CSM CONSULTANT Index: 0.36 LEFT CSM CONSULTANT mmH LEFT DPA Index: 0.41 LEFT DPA mmH LEFT YAMILE Index: 0.41 Doppler RIGHT CSM CONSULTANT Waveform: Monophasic RIGHT DPA Waveform: Monophasic LEFT CSM CONSULTANT Waveform: Monophasic LEFT DPA Waveform: Monophasic , PVR RIGHT Ankle Grade: Abnormal RIGHT Transmetarsal Grade: Abnormal RIGHT Digit (PPG) Grade: Absent LEFT Ankle Grade: Abnormal Prior Interventions 03/17/2025 right femoral and tibial bypass graft-. 03/17/2025 right femoral and tibial Report Signatures Finalized by Sylvia Meyer MD, RPVI, FSIR on 03/20/2025 09:40 AMNormal [facility] ANKLE/BRACHIAL INDICES EXTREMITY LIMITEDPatient Info Name: Tristin Powell Age: 85 years : 1940 Gender: Male Exam Date: 03/20/2025 8:42 AM Patient Status: INPATIENT Site Location: [facility] Indications I73.9 - Peripheral vascular disease, unspecified Procedure Description 02147 Limited bilateral noninvasive physiologic studies of upper or lower extremity arteries with bidirectional Doppler/PVR waveform analysis at 1-2 levels. Stock Cutter: Maggy Dempsey T Staff Ordering Physician: Beena [...] Segmental BP RIGHT Brachial A mmH RIGHT CSM CONSULTANT mmH RIGHT CSM CONSULTANT Index: 0.53 RIGHT DPA mmH RIGHT DPA Index: 0.57 RIGHT Digit mmH RIGHT YAMILE Index: 0.57 RIGHT TBI Index: 0.00 LEFT CSM CONSULTANT Index: 0.36 LEFT CSM CONSULTANT mmH LEFT DPA Index: 0.41 LEFT DPA mmH LEFT YAMILE Index: 0.41 Doppler RIGHT CSM CONSULTANT Waveform: Monophasic RIGHT DPA Waveform: Monophasic LEFT CSM CONSULTANT Waveform: Monophasic LEFT DPA Waveform: Monophasic , [...] MEYER on MonMar 20, 2025 9:40:58 AM EDTNormalRiverside [facility] Doppler ankle/brachial indexon 92-32-5763Qfzlgzj Info Name: Tristin Powell Age: 85 years : 1940 Gender: Male Exam Date: 03/20/2025 8:42 AM Patient Status: INPATIENT Site Location: [facility] Indications I73.9 - Peripheral vascular disease, unspecified Procedure Description 59971 Limited bilateral noninvasive physiologic studies of upper or lower extremity arteries with bidirectional Doppler/PVR waveform analysis at 1-2 levels. Stock Cutter: Maggy Dempsey T Staff Ordering Physician: Beena [...] Segmental BP RIGHT Brachial A mmH RIGHT CSM CONSULTANT mmH RIGHT CSM CONSULTANT Index: 0.53 RIGHT DPA mmH RIGHT DPA Index: 0.57 RIGHT Digit mmH RIGHT YAMILE Index: 0.57 RIGHT TBI Index: 0.00 LEFT CSM CONSULTANT Index: 0.36 LEFT CSM CONSULTANT mmH LEFT DPA Index: 0.41 LEFT DPA mmH LEFT YAMILE Index: 0.41 Doppler RIGHT CSM CONSULTANT Waveform: Monophasic RIGHT DPA Waveform: Monophasic LEFT CSM CONSULTANT Waveform: Monophasic LEFT DPA Waveform: Monophasic , PVR RIGHT Ankle Grade: Abnormal RIGHT Transmetarsal Grade: Abnormal RIGHT Digit (PPG) Grade: Absent LEFT Ankle Grade: Abnormal Prior Interventions 03/17/2025 right femoral and tibial bypass graft-. 03/17/2025 right femoral and tibial Report Signatures Finalized by Sylvia Meyer MD, RPLUIZA, FSIR on 03/20/2025 09:40 AMFUJI SYNAPSE [facility]vi[facility], Sylvia Haley MD - 03/20/2025 Patient Info Name: Tristin Powell Age: 85 years : 1940 Gender: Male Exam Date: 03/20/2025 8:42 AM Patient Status: INPATIENT Site Location: [facility] Indications I73.9 - Peripheral vascular disease, unspecified Procedure Description 65737 Limited bilateral noninvasive physiologic studies of upper or lower extremity arteries with bidirectional Doppler/PVR waveform analysis at 1-2 levels. Stock Cutter: Maggy Dempsey T Staff Ordering Physician: Beena [...] Segmental BP RIGHT Brachial A mmH RIGHT CSM CONSULTANT mmH RIGHT CSM CONSULTANT Index: 0.53 RIGHT DPA mmH RIGHT DPA Index: 0.57 RIGHT Digit mmH RIGHT YAMILE Index: 0.57 RIGHT TBI Index: 0.00 LEFT CSM CONSULTANT Index: 0.36 LEFT CSM CONSULTANT mmH LEFT DPA Index: 0.41 LEFT DPA mmH LEFT YAMILE Index: 0.41 Doppler RIGHT CSM CONSULTANT Waveform: Monophasic RIGHT DPA Waveform: Monophasic LEFT CSM CONSULTANT Waveform: Monophasic LEFT DPA Waveform: Monophasic , PVR RIGHT Ankle Grade: Abnormal RIGHT Transmetarsal Grade: Abnormal RIGHT Digit (PPG) Grade: Absent LEFT Ankle Grade: Abnormal Prior Interventions 03/17/2025 right femoral and tibial bypass graft-. 03/17/2025 right femoral and tibial Report Signatures Finalized by Sylvia Meyer MD, RPVI, FSIR on 03/20/2025 09:40 AM [facility] METABOLIC PANELon 79-42-8853Symmp gap [Moles/Vol]13 mmol/LNormal 10-20RiCrystal Clinic Orthopedic CenterComment on above:Order Comment: Therapeutic range for APTT's is 68 - 104 secondsPerformed By: #### [id number] #### [facility] [address] [place] [address] Emmanuel Plata M.D. [id number] [Mass/Vol]9.0 mg/dLNormal8.4-10.2RiversProMedica Flower Hospital Comment on above:Order Comment: Therapeutic range for APTT's is 68 - 104 seconds Performed By: #### 84473 #### [facility] [address] [place] [address] Emmanuel Plata M.D. [id number] [Moles/Vol]108 mmol/CKslcxj70-780LcfnwwxrqCrystal Clinic Orthopedic Center Comment on above:Order Comment: Therapeutic range for APTT's is 68 - 104 seconds Performed By: #### 90924 #### [facility] [address] [place], [place] [address] Emmanuel Plata M.D. [id number] [Mass/Vol]1.12 mg/dLNormal0.80-1.30RiCrystal Clinic Orthopedic CenterComment on above:Order Comment: Therapeutic range for APTT's is 68 - 104 secondsPerformed By: #### [id number] #### [facility] [address] [place] [address] Emmanuel Plata M.D. [id number] mL/min/1.73 t6Qvfbjd>=60RiCrystal Clinic Orthopedic CenterComment on above:Order Comment: Therapeutic range for APTT's is 68 - 104 secondsResult Comment: Estimated GFR was calculated using the 2020 CKD-EPI creatinine equation.Performed By: #### [id number] #### [facility] [address] [place], [place] [address] Emmanuel Plata M.D. [id number] [Mass/Vol]109 mg/fKNicq05-67XqbvfnirnMercy Health St. [facility] Comment on above:Order Comment: Therapeutic range for APTT's is 68 - 104 seconds Performed By: #### [id number] #### [facility] [address] [place] [address] Emmanuel Plata M.D. [id number] (Bld) [Moles/Vol]24 mmol/RXxxclz34-95PinoqovquMercy Health St. [facility] Center Comment on above:Order Comment: Therapeutic range for APTT's is 68 - 104 seconds Performed By: #### [id number] #### [facility] [address] [place] [address] Emmanuel Plata M.D. [id number] [Moles/Vol]5.0 mmol/LNormal3.5-5.1RLima City HospitalComment on above:Order Comment: Therapeutic range for APTT's is 68 - 104 secondsResult Comment: Slightly HemolyzedPerformed By: #### 62949 #### [facility] [address] [place] [address] Emmanuel Plata M.D. [id number] [Moles/Vol]140 mmol/PQlpwsx098-116JzimiohqwMercy Health St. [facility] Comment on above:Order Comment: Therapeutic range for APTT's is 68 - 104 seconds Performed By: #### 26535 #### [facility] [address] [place], [place] [address] Emmanuel Plata M.D. [id number] nitrogen [Mass/Vol]22 mg/dLNormal8-25[facility] Comment on above:Order Comment: Therapeutic range for APTT's is 68 - 104 seconds Performed By: #### 68300 #### [facility] [address] [place] [address] Emmanuel Plata M.D. [id number] nitrogen/Creatinine [Mass ratio]19.6 mg/bnMzzqit49.0-20.[address] [facility] Medical CenterComment on above:Order Comment: Therapeutic range for APTT's is 68 - 104 secondsPerformed By: #### 50790 #### [facility] [address] [place] [address] Emmanuel Plata M.D. [id number] metabolic 2000 panelOrdered By: Larry Brady on 03-19-2025 Anion gap [Moles/Vol]13 mmol/L10 - 20 mmol/LOhioHealthCalcium [Mass/Vol]9 mg/dL 8.4 - 10.2 mg/dLOhioHealthChloride [Moles/Vol]108 mmol/L98 - 108 mmol/L OhioHealthCreatinine [Mass/Vol]1.12 mg/dL0.80 - 1.30 mg/dLOhioHealthGFR/1.73 sq M.predicted CKD-EPI (S/P/Bld) [Vol rate/Area]64- PINFOhioHealthComment on above: Estimated GFR was calculated using the 2020 CKD-EPI creatinine equation.Glucose [Mass/Vol]109 mg/xCVspf15 - 99 mg/dLOhioHealthHCO3 [Moles/Vol]24 mmol/L21 - 32 mmol/LOhioHealthInterpretation and review of laboratory resultsAbnormal OhioHealthPotassium [Moles/Vol]5 mmol/L3.5 - 5.1 mmol/LOhioHealthComment on above:Slightly HemolyzedSodium [Moles/Vol]140 mmol/L135 - 145 mmol/LOhioHealth Urea nitrogen [Mass/Vol]22 mg/dL8 - 25 mg/dLOhioHealthUrea nitrogen/Creatinine [Mass ratio]19.6 mg/mg10.0 - 20.0OhioHealthOhioHealth [facility] has implemented the eGFR calculation approach that does not have a coefficient for race that conforms to the NKF-ASN Task Force Recommendations.OhioHealthCBCon 22-46-0078UQPX NRBC0.0 %NormalRiverside Hendrick Medical Center BrownwoodComment on above: Performed By: #### 02856 #### [facility] [address] [place] [address] Emmanuel Plata M.D. [id number] NRBC ABS COUNT0.00 K/mcLNormal0.00-0.00RiversLake County Memorial Hospital - West HospitalComment on above:Performed By: #### [id number] #### [facility] [address] [place] [address] Emmanuel Plata M.D. [id number] distribution width (RBC) [Ratio]14.5 %Gmqcmf78.6-14.8 [facility] HospitalComment on above:Performed By: #### [id number] #### [facility] [address] [place] [address] Emmanuel lPata M.D. [id number] (Bld) [Volume fraction]27.8 %Low41.0-53.0RiversLake County Memorial Hospital - West HospitalComment on above:Performed By: #### 84535 #### [facility] [address] [place] [address] Emmanuel Plata M.D. [id number] (Bld) [Mass/Vol]10.4 g/dLLow13.5-17.5RiAultman Alliance Community Hospital HospitalComment on above:Performed By: #### 25997 #### [facility] [address] [place], [place] [address] Emmanuel Plata M.D. [id number] (RBC) [Entitic mass]36.1 hjSmao82.0-34.0RiAultman Alliance Community Hospital HospitalComment on above:Performed By: #### 47993 #### [facility] [address] [place], [place] [address] Emmanuel Plata M.D. [id number] (RBC) [Entitic vol]96.5 rWJhwkng50.0-100.0RiAultman Alliance Community Hospital HospitalComment on above:Performed By: #### 25713 #### [facility] [address] [place], [place] [address] Emmanuel Plata M.D. [id number] CORPUSCULAR HEMOGLOBIN CONC37.4 g/wBTqtu64.0-37.0RiAultman Alliance Community Hospital HospitalComment on above:Performed By: #### 08951 #### [facility] [address] [place] [address] Emmanuel Plata M.D. [id number] mean volume (Bld) [Entitic vol]9.6 fLNormal9.4-12.4RiversLake County Memorial Hospital - West HospitalComment on above:Performed By: #### [id number] #### [facility] [address] [place] [address] Emmanuel Plata M.D. [id number] (Bld) [#/Vol]148 10*3/pAJqz468-255TlrjndkxpCrystal Clinic Orthopedic CenterComment on above:Performed By: #### [id number] #### [facility] [address] [place], [place] [address]Nessa Plata M.D. [id number] (Bld) [#/Vol]2.88 10*6/uLLow4.50-5.90RiCrystal Clinic Orthopedic Center Comment on above:Performed By: #### 90498 #### [facility] [address] [place], [place] [address] Emmanuel Plata M.D. [id number] (Bld) [#/Vol]4.34 10*3/uLLow4.50-11.00[facility] Comment on above:Performed By: #### 95360 #### [facility] [address] [place], [place] [address]Nessa Plata M.D. [id number] panel Auto (Bld)on 29-34-9562Qcgjpmshqra distribution width (RBC) [Entitic vol]14.5 %11.6 - 14.8 %OhioHealthHematocrit (Bld) [Volume fraction]27.8 %Low41.0 - 53.0 %OhioHealthHemoglobin (Bld) [Mass/Vol]10.4 g/dLLow13.5 - 17.5 g/dLOhioHealthInterpretation and review of laboratory resultsAbnormalOhioHealth MCH (RBC) [Entitic mass]36.1 ffFqzy99.0 - 34.0 pgOhioHealthMCHC (RBC) [Mass/Vol] 37.4 g/dJDlpy25.0 - 37.0 g/dLOhioHealthMCV (RBC) [Entitic vol]96.5 fL80.0 - 100.0 fLOhioHealthNucleated RBC (Bld) [#/Vol]0 10*3/uLOhioHealthNucleated RBC/100 WBC (Bld) [Ratio]0 %OhioHealthPlatelet mean volume (Bld) [Entitic vol] 9.6 fL9.4 - 12.4 fLOhioHealthPlatelets (Bld) [#/Vol]148 10*3/uLLowOhioHealthRBC (Bld) [#/Vol]2.88 10*6/uLLowOhioHealthWBC (Bld) [#/Vol]4.34 10*3/uLLowOhioHealth OhioHealthMAGNESIUM LEVELon 31-14-8968Kwhhapnxu [Mass/Vol]2.4 mg/dLNormal1.6-2.[address] [facility] Medical CenterComment on above:Performed By: #### 37189 #### [facility] [address] [place] [address] Emmanuel Plata M.D. [id number] 77-82-6171Iknpdmxuw [Mass/Vol]2.4 mg/dL1.6 - 2.4 mg/dL OhioHealthMagnesium [Mass/Vol]on 08-39-8678Zrbwyokdpscnuv and review of laboratory resultsNormalOhioHealthNo Panel InformationOrdered By: Larry Brady on 81-93-8441VdkxMmviuxQTQNZ METABOLIC PANELon 88-35-7161Qbsde gap [Moles/Vol] 16 mmol/SXdqvbh46-73RpidquohzCrystal Clinic Orthopedic CenterComment on above:Order Comment: [facility] has implemented the eGFR calculation approach that does not have a coefficient for race that conforms to the NKF-ASN Task Force Recommendations.Performed By: #### 93859 #### [facility] [address] [place] [address] Emmanuel Plata M.D. [id number] [Mass/Vol]8.2 mg/dLLow8.4-10.2RiversProMedica [facility]lower [facility] Comment on above:Order Comment: [facility] has implemented the eGFR calculation approach that does not have a coefficient for race that conforms to the NKF-ASN Task Force Recommendations.Performed By: #### 05243 #### [facility] [address] [place], [place] [address] Emmanuel Plata M.D. [id number] [Moles/Vol]109 mmol/RAkdx35-097HxaxjbzpzCrystal Clinic Orthopedic Center Comment on above:Order Comment: [facility] has implemented the eGFR calculation approach that does not have a coefficient for race that conforms to the NKF-ASN Task Force Recommendations.Performed By: #### 90802 #### [facility] [address] [place] [address] Emmanuel Plata M.D. [id number] [Mass/Vol]1.05 mg/dLNormal0.80-1.30RiCrystal Clinic Orthopedic CenterComment on above:Order Comment: [facility] has implemented the eGFR calculation approach that does not have a coefficient for race that conforms to the NKF-ASN Task Force Recommendations.Performed By: #### 65005 #### [facility] [address] [place] [address] Emmanuel Plata M.D. [id number] mL/min/1.73 y6Wpehua>=60RiCrystal Clinic Orthopedic CenterComment on above:Order Comment: [facility] has implemented the eGFR calculation approach that does not have a coefficient for race that conforms to the NKF-ASN Task Force Recommendations.Result Comment: Estimated GFR was calculated using the 2020 CKD-EPI creatinine equation.Performed By: #### [id number] #### [facility] [address] [place], [place] [address] Emmanuel Plata M.D. [id number] [Mass/Vol]111 mg/oSRhjo61-94GfwjcvbicMercy Health St. [facility] Comment on above:Order Comment: [facility] has implemented the eGFR calculation approach that does not have a coefficient for race that conforms to the NKF-ASN Task Force Recommendations.Performed By: #### [id number] #### [facility] [address] [place] [address] Emmanuel Plata M.D. [id number] (Bld) [Moles/Vol]19 mmol/LVvq84-34MoertiuxhMercy Health St. [facility] Comment on above:Order Comment: [facility] has implemented the eGFR calculation approach that does not have a coefficient for race that conforms to the NKF-ASN Task Force Recommendations.Performed By: #### 86556 #### [facility] [address] [place] [address] Emmanuel Plata M.D. [id number] [Moles/Vol]4.1 mmol/LNormal3.5-5.1RiversProMedica Flower HospitalComment on above:Order Comment: [facility] has implemented the eGFR calculation approach that does not have a coefficient for race that conforms to the NKF-ASN Task Force Recommendations.Result Comment: Slightly HemolyzedPerformed By: #### [id number] #### [facility] [address] [place], [place] [address] Emmanuel Plata M.D. [id number] [Moles/Vol]140 mmol/FQykkes703-662TncxgmospMercy Health St. [facility] Center Comment on above:Order Comment: [facility] has implemented the eGFR calculation approach that does not have a coefficient for race that conforms to the NKF-ASN Task Force Recommendations.Performed By: #### 19270 #### [facility] [address] [place] [address] Emmanuel Plata M.D. [id number] nitrogen [Mass/Vol]18 mg/dLNormal8-25RiCrystal Clinic Orthopedic Center Comment on above:Order Comment: [facility] has implemented the eGFR calculation approach that does not have a coefficient for race that conforms to the NKF-ASN Task Force Recommendations.Performed By: #### 90624 #### [facility] [address] [place] [address] Emmanuel Plata M.D. [id number] nitrogen/Creatinine [Mass ratio]17.1 mg/mtZcfazp17.0-20.[address] [facility] Medical CenterComment on above:Order Comment: [facility] has implemented the eGFR calculation approach that does not have a coefficient for race that conforms to the NKF-ASN Task Force Recommendations.Performed By: #### [id number] #### [facility] [address] [place] [address] Emmanuel Plata M.D. [id number] metabolic 2000 panelOrdered By: Fred Hameed on 41-70-9197Rasee gap [Moles/Vol]16 mmol/L10 - 20 mmol/LOhioHealthCalcium [Mass/Vol]8.2 mg/dLLow 8.4 - 10.2 mg/dLOhioHealthChloride [Moles/Vol]109 mmol/LHigh98 - 108 mmol/L OhioHealthCreatinine [Mass/Vol]1.05 mg/dL0.80 - 1.30 mg/dLOhioHealthGFR/1.73 sq M.predicted CKD-EPI (S/P/Bld) [Vol rate/Area]69- PINFOhioHealthComment on above: Estimated GFR was calculated using the 2020 CKD-EPI creatinine equation.Glucose [Mass/Vol]111 mg/tWIuoa98 - 99 mg/dLOhioHealthHCO3 [Moles/Vol]19 mmol/LLow21 - 32 mmol/LOhioHealthInterpretation and review of laboratory resultsAbnormal OhioHealthPotassium [Moles/Vol]4.1 mmol/L3.5 - 5.1 mmol/LOhioHealthComment on above:Slightly HemolyzedSodium [Moles/Vol]140 mmol/L135 - 145 mmol/LOhioHealth Urea nitrogen [Mass/Vol]18 mg/dL8 - 25 mg/dLOhioHealthUrea nitrogen/Creatinine [Mass ratio]17.1 mg/mg10.0 - 20.0OhioJ.W. Ruby Memorial HospitalioRiverview [facility] Institute [facility] has implemented the eGFR calculation approach that does not have a coefficient for race that conforms to the NKF-ASN Task Force Recommendations.[facility] 14-23-3927PMKK NRBC0.0 %NormalRiCrystal Clinic Orthopedic CenterComment on above: Performed By: #### [id number] #### [facility] [address] [place] [address] Emmanuel Plata M.D. [id number] NRBC ABS COUNT0.00 K/mcLNormal0.00-0.00RiCrystal Clinic Orthopedic CenterComment on above:Performed By: #### [id number] #### [facility] [address] [place], [place] [address] Emmanuel Plata M.D. [id number] distribution width (RBC) [Ratio]13.3 %Houxhg17.6-14.[address] [facility] Medical CenterComment on above:Performed By: #### [id number] #### [facility] [address] [place], [place] [address] Emmanuel Plata M.D. [id number] (Bld) [Volume fraction]28.9 %Low41.0-53.0RiCrystal Clinic Orthopedic CenterComment on above:Performed By: #### [id number] #### [facility] [address] [place] [address] Emmanuel Plata M.D. [id number] (Bld) [Mass/Vol]10.5 g/dLLow13.5-17.5Riverside Cheondoism HospitalComment on above:Performed By: #### [id number] #### [facility] [address] [place] [address] Emmanuel Plata M.D. [id number] (RBC) [Entitic mass]34.3 aiBzxe20.0-34.0RiversLake County Memorial Hospital - West HospitalComment on above:Performed By: #### [id number] #### [facility] [address] [place] [address] Emmanuel Plata M.D. [id number] (RBC) [Entitic vol]94.4 rZKwsshp87.0-100.0RiversLake County Memorial Hospital - West HospitalComment on above:Performed By: #### [id number] #### [facility] [address] [place] [address] Emmanuel Plata M.D. [id number] CORPUSCULAR HEMOGLOBIN CONC36.3 g/jHRgupre56.0-37.0RiAultman Alliance Community Hospital HospitalComment on above:Performed By: #### [id number] #### [facility] [address] [place] [address] Emmanuel Plata M.D. [id number] mean volume (Bld) [Entitic vol]9.7 fLNormal9.4-12.4Riverside Cheondoism HospitalComment on above:Performed By: #### [id number] #### [facility] [address] [place] [address] Emmanuel Plata M.D. [id number] (Bld) [#/Vol]157 10*3/cPLyymdx517-120Ejiufozha Methodist HospitalComment on above:Performed By: #### [id number] #### [facility] [address] [place] [address] 13[address] Emmanuel Plata M.D. [id number] (Bld) [#/Vol]3.06 10*6/uLLow4.50-5.90RiCrystal Clinic Orthopedic Center Comment on above:Performed By: #### [id number] #### [facility] [address] [place] [address] Emmanuel Plata M.D. [id number] (Bld) [#/Vol]5.05 10*3/uLNormal4.50-11.00RiCrystal Clinic Orthopedic CenterComment on above:Performed By: #### [id number] #### [facility] [address] [place] [address] Emmanuel Plata M.D. [id number] panel Auto (Bld)on 05-53-3922Kjrsifzgiin distribution width (RBC) [Entitic vol]13.3 %11.6 - 14.8 %OhioHealthHematocrit (Bld) [Volume fraction]28.9 %Low41.0 - 53.0 %OhioHealthHemoglobin (Bld) [Mass/Vol]10.5 g/dLLow13.5 - 17.5 g/dLOhioHealthInterpretation and review of laboratory resultsAbnormalOhioHealth MCH (RBC) [Entitic mass]34.3 bpDkoz38.0 - 34.0 pgOhioHealthMCHC (RBC) [Mass/Vol] 36.3 g/dL31.0 - 37.0 g/dLOhioHealthMCV (RBC) [Entitic vol]94.4 fL80.0 - 100.0 fL OhioHealthNucleated RBC (Bld) [#/Vol]0 10*3/uLOhioHealthNucleated RBC/100 WBC (Bld) [Ratio]0 %OhioHealthPlatelet mean volume (Bld) [Entitic vol]9.7 fL9.4 - 12.4 fLOhioHealthPlatelets (Bld) [#/Vol]157 10*3/uLOhioHealthRBC (Bld) [#/Vol] 3.06 10*6/uLLowOhioHealthWBC (Bld) [#/Vol]5.05 10*3/uLOhioHealthOhioHealth MAGNESIUM LEVELon 79-85-4978Hebmquesm [Mass/Vol]2.1 mg/dLNormal1.6-2.4RLima City HospitalComment on above:Performed By: #### [id number] #### [facility] [address] [place] [address] Emmanuel Plata M.D. [id number] 76-35-1190Oxaudjihe [Mass/Vol]2.1 mg/dL1.6 - 2.4 mg/dL [facility] HospitalMagnesium [Mass/Vol]on 03-84-2193Prqurujkjeglry and review of laboratory resultsNormalOhioHealthNo Panel Informationon 42-60-6975HmdpHjmdeyLM Lower extremity vein - righton 03-18-2025 Fluoroscopy used for intraoperative angiogram. Refer to the operative report for details. MAY/edi Workstation ID: [id number] RISEXAMINATION: XR OR ANGIO LOWER EXTREMITY RIGHT HISTORY: [...] Ka,r mGy: 7.18. FINDINGS: See impression. Sylvia Regalado MD - 03/18/2025 EXAMINATION: XR OR ANGIO [...] report for details. MAY/edi Workstation ID: [id number] [facility] Lower extremity vein - rightOrdered By: Sylvia Meyer on 03-18-2025 [facility] Work Phone: APTT HEPARIN COVERAGEon 64-76-6322oAIY Coag (Bld) [Time]92 mBzic12-36YriiaxmbvCrystal Clinic Orthopedic CenterComment on above:Order Comment: Therapeutic range for APTT's is 68 - 104 secondsPerformed By: #### [id number] #### [facility] [address] [place], [place] [address] Emmanuel Plata M.D. [id number] Heparin Coverageon 52-63-4729xSGW Coag (Bld) [Time]92 [facility] CenterInterpretation and review of laboratory resultsAbnormalOhioHealth Therapeutic range for APTT's is 68 - 104 secondsOhioHealthAkioHealthBASIC METABOLIC PANELon 25-51-1791Nuqhu gap [Moles/Vol]12 mmol/DBommnm14-52LvsvjkkaoMercy Health St. Vincent Medical CenterComment on above:Order Comment: [facility] has implemented the eGFR calculation approach that does not have a coefficient for race that conforms to the NKF-ASN Task Force Recommendations.Performed By: #### [id number] #### [facility] [address] [place], [place] [address] Emmanuel Plata M.D. [id number] [Mass/Vol]8.5 mg/dLNormal8.4-10.2RLima City Hospital Comment on above:Order Comment: [facility] has implemented the eGFR calculation approach that does not have a coefficient for race that conforms to the NKF-ASN Task Force Recommendations.Performed By: #### [id number] #### [facility] [address] [place], [place] [address] Emmanuel Plata M.D. [id number] [Moles/Vol]106 mmol/LTsyver52-247MyhjsqxyhMercy Health St. [facility] Comment on above:Order Comment: [facility] has implemented the eGFR calculation approach that does not have a coefficient for race that conforms to the NKF-ASN Task Force Recommendations.Performed By: #### [id number] #### [facility] [address] [place], [place] [address] Emmanuel Plata M.D. [id number] [Mass/Vol]1.05 mg/dLNormal0.80-1.30RiCrystal Clinic Orthopedic CenterComment on above:Order Comment: [facility] has implemented the eGFR calculation approach that does not have a coefficient for race that conforms to the NKF-ASN Task Force Recommendations.Performed By: #### [id number] #### [facility] [address] [place], [place] [address] Emmanuel Plata M.D. [id number] mL/min/1.73 u8Phyumo>=60RiCrystal Clinic Orthopedic CenterComment on above:Order Comment: [facility] has implemented the eGFR calculation approach that does not have a coefficient for race that conforms to the NKF-ASN Task Force Recommendations.Result Comment: Estimated GFR was calculated using the 2020 CKD-EPI creatinine equation.Performed By: #### [id number] #### [facility] [address] [place], [place] [address] Emmanule Plata M.D. [id number] [Mass/Vol]90 mg/qAQacsdw97-37XzusvngvsMercy Health St. [facility] Comment on above:Order Comment: [facility] has implemented the eGFR calculation approach that does not have a coefficient for race that conforms to the NKF-ASN Task Force Recommendations.Performed By: #### [id number] #### [facility] [address] [place], [place] [address] Emmanuel Plata M.D. [id number] (Bld) [Moles/Vol]24 mmol/KGwkaan03-51TwijuqoiaCrystal Clinic Orthopedic Center Comment on above:Order Comment: [facility] has implemented the eGFR calculation approach that does not have a coefficient for race that conforms to the NKF-ASN Task Force Recommendations.Performed By: #### 69919 #### [facility] [address] [place] [address] Emmanuel Plata M.D. [id number] [Moles/Vol]4.1 mmol/LNormal3.5-5.1RLima City HospitalComment on above:Order Comment: [facility] has implemented the eGFR calculation approach that does not have a coefficient for race that conforms to the NKF-ASN Task Force Recommendations.Performed By: #### 17710 #### [facility] [address] [place] [address] 15[address] Emmanuel Plata M.D. [id number] [Moles/Vol]138 mmol/LBiuvsb021-972AphulawacCrystal Clinic Orthopedic Center Comment on above:Order Comment: [facility] has implemented the eGFR calculation approach that does not have a coefficient for race that conforms to the NKF-ASN Task Force Recommendations.Performed By: #### 40284 #### [address] [address] Emmanuel Plata M.D. [id number] nitrogen [Mass/Vol]16 mg/dLNormal8-25RiCrystal Clinic Orthopedic Center Comment on above:Order Comment: [facility] has implemented the eGFR calculation approach that does not have a coefficient for race that conforms to the NKF-ASN Task Force Recommendations.Performed By: #### [id number] #### [facility] [address] [place] [address] Emmanuel Plata M.D. [id number] nitrogen/Creatinine [Mass ratio]15.2 mg/xxDimcoh47.0-20.[address] [facility] Medical CenterComment on above:Order Comment: [facility] has implemented the eGFR calculation approach that does not have a coefficient for race that conforms to the NKF-ASN Task Force Recommendations.Performed By: #### [id number] #### [facility] [address] [place] [address] Emmanuel Plata M.D. [id number] metabolic 2000 panelon 26-09-0249Foyik gap [Moles/Vol]12 mmol/L 10 - 20 mmol/LOhioHealthCalcium [Mass/Vol]8.5 mg/dL8.4 - 10.2 mg/dLOhioHealth Chloride [Moles/Vol]106 mmol/L98 - 108 mmol/LOhioHealthCreatinine [Mass/Vol]1.05 mg/dL0.80 - 1.30 mg/dLOhioHealthGFR/1.73 sq M.predicted CKD-EPI (S/P/Bld) [Vol rate/Area]69- PINFOhioHealthComment on above:Estimated GFR was calculated using the 2020 CKD-EPI creatinine equation.Glucose [Mass/Vol]90 mg/dL65 - 99 mg/dL OhioHealthHCO3 [Moles/Vol]24 mmol/L21 - 32 mmol/LOhioHealthPotassium [Moles/Vol] 4.1 mmol/L3.5 - 5.1 mmol/LOhioHealthSodium [Moles/Vol]138 mmol/L135 - 145 mmol/L OhioHealthUrea nitrogen [Mass/Vol]16 mg/dL8 - 25 mg/dLOhioHealthUrea nitrogen/Creatinine [Mass ratio]15.2 mg/mg10.0 - 20.0OhioJ.W. Ruby Memorial HospitalioHealth Laboratory [facility] has implemented the eGFR calculation approach that does not have a coefficient for race that conforms to the NKF-ASN Task Force Recommendations.[facility] HospitalCon 39-18-1099GIUB NRBC0.0 %NormalRiverside Cheondoism HospitalComment on above:Performed By: #### [id number] #### [facility] [address] [place] [address] Emmanuel Plata M.D. [id number] NRBC ABS COUNT0.00 K/mcLNormal0.00-0.00R[facility] BrownwoodComment on above:Performed By: #### [id number] #### [facility] [address] [place] [address] Emmanuel Plata M.D. [id number] distribution width (RBC) [Ratio]13.2 %Tvlmnw60.6-14.[address] Vincent Medical CenterComment on above:Performed By: #### 78296 #### [facility] [address] [place] [address] Emmanuel Plata M.D. [id number] (Bld) [Volume fraction]33.1 %Low41.0-53.0RiversLake County Memorial Hospital - West HospitalComment on above:Result Comment: Repeated AND verified Performed By: #### [id number] #### [facility] [address] [place] [address] Emmanuel Plata M.D. [id number] (Bld) [Mass/Vol]11.0 g/dLLow13.5-17.5RiCrystal Clinic Orthopedic CenterComment on above:Performed By: #### 11313 #### [facility] [address] [place] [address] Emmanuel Plata M.D. [id number] (RBC) [Entitic mass]29.8 hrExsznc59.0-34.0RiCrystal Clinic Orthopedic CenterComment on above:Performed By: #### 03306 #### [facility] [address] [place] [address] Emmanuel Plata M.D. [id number] (RBC) [Entitic vol]89.7 hDAtpfzx48.0-100.0RiCrystal Clinic Orthopedic CenterComment on above:Performed By: #### [id number] #### [facility] [address] [place], [place] [address] Emmanuel Plata M.D. [id number] CORPUSCULAR HEMOGLOBIN CONC33.2 g/hUHecqod86.0-37.0RiAultman Alliance Community Hospital HospitalComment on above:Result Comment: Cold Agglutinin present Performed By: #### [id number] #### [facility] [address] [place], [place] [address] Emmanuel Plata M.D. [id number] mean volume (Bld) [Entitic vol]10.2 fLNormal9.4-12.4RLima City HospitalComment on above:Performed By: #### [id number] #### [facility] [address] [place] [address] Emmanuel Plata M.D. [id number] (Bld) [#/Vol]153 10*3/xINqramu967-922AikoqrourCrystal Clinic Orthopedic CenterComment on above:Performed By: #### [id number] #### [facility] [address] [place] [address] Emmanuel Plata M.D. [id number] (Bld) [#/Vol]3.69 10*6/uLLow4.50-5.90RiCrystal Clinic Orthopedic Center Comment on above:Performed By: #### [id number] #### [facility] [address] [place], [place] [address] Emmanuel Plata M.D. [id number] (Bld) [#/Vol]3.29 10*3/uLLow4.50-11.00[facility] Comment on above:Performed By: #### 68891 #### [facility] [address] [place], [place] [address] Emmanuel Plata M.D. [id number] panel Auto (Bld)on 38-30-8670Tvgfingyequ distribution width (RBC) [Entitic vol]13.2 %11.6 - 14.8 %OhioHealthHematocrit (Bld) [Volume fraction]33.1 %Low41.0 - 53.0 %OhioHealthComment on above:Repeated & verifiedHemoglobin (Bld) [Mass/Vol]11 g/dLLow13.5 - 17.5 g/dLOhioHealthInterpretation and review of laboratory resultsAbnormalOhioHealthMCH (RBC) [Entitic mass]29.8 pg26.0 - 34.0 pgOhioHealthMCHC (RBC) [Mass/Vol]33.2 g/dL31.0 - 37.0 g/dLOhioHealthComment on above:Cold Agglutinin presentMCV (RBC) [Entitic vol]89.7 fL80.0 - 100.0 fL OhioHealthNucleated RBC (Bld) [#/Vol]0 10*3/uLOhioHealthNucleated RBC/100 WBC (Bld) [Ratio]0 %OhioHealthPlatelet mean volume (Bld) [Entitic vol]10.2 fL9.4 - 12.4 fLOhioHealthPlatelets (Bld) [#/Vol]153 10*3/uLOhioHealthRBC (Bld) [#/Vol] 3.69 10*6/uLLowOhioHealthWBC (Bld) [#/Vol]3.29 10*3/uLLowOhioHealthOhioHealthECG 12 Leadon 03-92-9098Zwdtmm Kvom82CHQEeyySntxzrN Qkvt87bppopzbEpyjPcirfkB-S Vevkoytd515 msOhioHealthQ-T Ynwadpkm939 msOhioHealthQRS Yechqqzu341 msOhioHealth QTC Calculation (Bezet)464 msOhioHealthR Bhwu52easlvwcHyouHtpkcpH Dwws35kfqromf OhioHealthVentricular Oslf00NYFWpspKpbnopXoiyk rhythm with Premature supraventricular complexes Otherwise normal ECG Confirmed by MARY CARLTON ([id number]) on 03/17/2025 7:58:31 AMMUSEOhioHealth Glucose (Bld) [Mass/Vol]on 59-42-9361Ovpxblh [Mass/Vol]105 mg/fWUlgr86 - 99 mg/dLOhioHealthInterpretation and review of laboratory resultsAbnormalOhioHealth OhioHealthHEMOGLOBIN AND HEMATOCRITon 74-22-6422Zrktzvbhmz (Bld) [Volume fraction]30.5 %Low41.0-53.0RiCrystal Clinic Orthopedic CenterComment on above: Performed By: #### [id number] #### [facility] [address] [place] [address] Emmanuel Plata M.D. [id number] (Bld) [Mass/Vol]11.2 g/dLLow13.5-17.5RiCrystal Clinic Orthopedic CenterComment on above:Performed By: #### [id number] #### [address] [address] Emmanuel Plata M.D. [id number] and Hematocrit panel (Bld)on 33-55-9113Mcirlvvogt (Bld) [Volume fraction]30.5 %Low41.0 - 53.0 %OhioHealthHemoglobin (Bld) [Mass/Vol]11.2 g/dLLow13.5 - 17.5 g/dLOhioHealthInterpretation and review of laboratory resultsAbnormalOhioHealthOhioHealthMAGNESIUM LEVELon 02-39-9253Xetlnldlf [Mass/Vol]2.1 mg/dLNormal1.6-2.4RiversProMedica Flower HospitalComment on above: Performed By: #### [id number] #### [address] [address] Emmanuel Plata M.D. [id number] 89-67-4997Imnlowipq [Mass/Vol]2.1 mg/dL1.6 - 2.4 mg/dL OhioRiverview Health InstituteNo Panel Informationon 71-57-9266Qkeanbdbbloblg and review of laboratory resultsNormalOhioHealthOhioHealthOP NOTEon 54-00-1921KC TRISTIN MOELLER [id number] DATE 03/17/2025 OPERATIVE REPORT SURGEON MOHSEN SARABIA MD OPERATIONS PROJECT MANAGER FAUSTINA OROZCO, RESIDENT PREOPERATIVE DIAGNOSIS Chronic limb-threatening [...] did elect to shoot an angiogram. A 23-Yi butterfly needle was used to puncture the [...] 200 cc. MD Carlo GUNN 03/17/2025 16:58 [id number] T 03/17/2025 23:17 JPW/MODL AUTHENTICATED BY MOHSEN SARABIA, ON 03/24/2025 10:13:39NormalRiverside [facility] GLUCOSE - THE METROHEALTH SYSTEMPartha 11-70-4375Nyhkrrb [Mass/Vol]105 mg/dLHigh 65-99Ricovenant medical centeride [facility] Medical Center BrownwoodComment on above:Performed By: #### [id number] #### [facility] [address] [place] [address] [id number] RMHPOCUS Lower extremity vein - righton 53-95-3810Qhsfxucxw Study observation (narrative)OhioRiverview Health InstituteXR OR ANGIO LOWER EXTREMITY RIGHTon 74-84-1428YC OR ANGIO LOWER EXTREMITY RIGHTEXAMINATION: XR OR ANGIO LOWER EXTREMITY RIGHT HISTORY: [...] Refer to the operative report for details. Acomni/Visualead Workstation ID: [id number] Dictated by: Sylvia MEYER on MonMar 18, 2025 7:54:33 AM EDT Transcribed by: ZENA NEGRETE on MonMar 18, 2025 8:58:15 AM EDT Finalized by: Sylvia MEYER on MonMar 18, 2025 10:04:09 AM EDTNoMercy HealthComment on above:Order Comment: Injury/Trauma or Illness?:Illness/Other How long have you had these symptoms (acute/chronic)?:Acute Reason for exam?:rt leg bypass Type of Exam?:Unknown Additional signs and symptoms?:sx Fluoro time in minutes:1.3 Fluoro dose in mGy?:7.18APTT HEPARIN COVERAGEon 38-47-8012zQHT Coag (Bld) [Time] 85 [address] StreetComment on above:Order Comment: Therapeutic range for APTT's is 68 - 104 secondsPerformed By: #### [id number] #### [facility] [address] [place] [address] Emmanuel Plata M.D. [id number] Coag (Bld) [Time]90 aKskg54-01EjtmmzutqMercy Health St. Vincent Medical CenterCompontiac general hospital on above:Order Comment: Therapeutic range for APTT's is 68 - 104 seconds Performed By: #### 96006 #### [facility] [address] [place] [address] Emmanuel Plata M.D. [id number] Coag (Bld) [Time]91 nBagn71-40GezdbqujnCrystal Clinic Orthopedic CenterComment on above:Order Comment: Therapeutic range for APTT's is 68 - 104 seconds Performed By: #### 69813 #### [facility] [address] [place] [address] Emmanuel Plata M.D. [id number] Heparin CoverageOrdered By: Remigio Hernandez on 09-13-7944vUML Coag (Bld) [Time]85 sHighOhioHealthInterpretation and review of laboratory results AbnormalOhioHealthTherapeutic range for APTT's is 68 - 104 secondsOhioHealth OhioHealthAPTT Heparin CoverageOrdered By: Flory Pino on 42-22-0785pPBA Coag (Bld) [Time]90 sHighOhioHealthTherapeutic range for APTT's is 68 - 104 seconds OhioHealthAPTT Heparin CoverageOrdered By: Deena Escoto on 31-52-6744sQTK Coag (Bld) [Time]91 sHighOhioHealthInterpretation and review of laboratory results AbnormalOhioHealthTherapeutic range for APTT's is 68 - 104 secondsOhioHealth [facility]oria City HospitalBASIC METABOLIC PANELon 16-40-3192Jgqrw gap [Moles/Vol]15 mmol/LNormal -[facility] Vincent Medical CenterComment on above:Order Comment: [facility] has implemented the eGFR calculation approach that does not have a coefficient for race that conforms to the NKF-ASN Task Force Recommendations.Performed By: #### [id number] #### [facility] [address] [place] [address] Emmanuel Plata M.D. [id number] [Mass/Vol]9.0 mg/dLNormal8.4-10.2RLima City Hospital Comment on above:Order Comment: [facility] has implemented the eGFR calculation approach that does not have a coefficient for race that conforms to the NKF-ASN Task Force Recommendations.Performed By: #### 88155 #### [facility] [address] [place] [address] Emmanuel Plata M.D. [id number] [Moles/Vol]106 mmol/COlmawx87-365OtmyixvuvCrystal Clinic Orthopedic Center Comment on above:Order Comment: [facility] has implemented the eGFR calculation approach that does not have a coefficient for race that conforms to the NKF-ASN Task Force Recommendations.Performed By: #### [id number] #### [facility] [address] [place], [place] [address] Emmanuel Plata M.D. [id number] [Mass/Vol]1.11 mg/dLNormal0.80-1.30RiCrystal Clinic Orthopedic CenterComment on above:Order Comment: [facility] has implemented the eGFR calculation approach that does not have a coefficient for race that conforms to the NKF-ASN Task Force Recommendations.Performed By: #### 46578 #### [facility] [address] [place], [place] [address] Emmanuel Plata M.D. [id number] mL/min/1.73 b2Uymoyc>=60RiCrystal Clinic Orthopedic CenterComment on above:Order Comment: [facility] has implemented the eGFR calculation approach that does not have a coefficient for race that conforms to the NKF-ASN Task Force Recommendations.Result Comment: Estimated GFR was calculated using the 2020 CKD-EPI creatinine equation.Performed By: #### [id number] #### [facility] [address] [place], [place] [address] Emmanuel Plata M.D. [id number] [Mass/Vol]105 mg/jUOssb61-42YyzbflrmmCrystal Clinic Orthopedic Center Comment on above:Order Comment: [facility] has implemented the eGFR calculation approach that does not have a coefficient for race that conforms to the NKF-ASN Task Force Recommendations.Performed By: #### [id number] #### [facility] [address] [place], [place] [address] Emmanuel Plata M.D. [id number] (Bld) [Moles/Vol]24 mmol/BSxqwwr45-28QxwpshnprMercy Health St. [facility] Comment on above:Order Comment: [facility] has implemented the eGFR calculation approach that does not have a coefficient for race that conforms to the NKF-ASN Task Force Recommendations.Performed By: #### [id number] #### [facility] [address] [place], [place] [address] Emmanuel Plata M.D. [id number] [Moles/Vol]4.3 mmol/LNormal3.5-5.1RLima City HospitalComment on above:Order Comment: [facility] has implemented the eGFR calculation approach that does not have a coefficient for race that conforms to the NKF-ASN Task Force Recommendations.Performed By: #### [id number] #### [facility] [address] [place] [address] Emmanuel Plata M.D. [id number] [Moles/Vol]141 mmol/THyulbq157-911ZelokbjzlMercy Health St. [facility] Comment on above:Order Comment: [facility] has implemented the eGFR calculation approach that does not have a coefficient for race that conforms to the NKF-ASN Task Force Recommendations.Performed By: #### [id number] #### [facility] [address] [place], [place] [address] Emmanuel Plata M.D. [id number] nitrogen [Mass/Vol]20 mg/dLNormal8-25[facility] Comment on above:Order Comment: [facility] has implemented the eGFR calculation approach that does not have a coefficient for race that conforms to the NKF-ASN Task Force Recommendations.Performed By: #### [id number] #### [facility] [address] [place], [place] [address] Emmanuel Plata M.D. [id number] nitrogen/Creatinine [Mass ratio]18.0 mg/mhWxftxi25.0-20.[address] Vincent Medical CenterComment on above:Order Comment: [facility] has implemented the eGFR calculation approach that does not have a coefficient for race that conforms to the NKF-ASN Task Force Recommendations.Performed By: #### [id number] #### [facility] [address] [address] Emmanuel Plata M.D. [id number] metabolic 2000 panelon 65-76-8229Ubklw gap [Moles/Vol]15 mmol/L 10 - 20 mmol/LOhioHealthCalcium [Mass/Vol]9 mg/dL8.4 - 10.2 mg/dLOhioHealth Chloride [Moles/Vol]106 mmol/L98 - 108 mmol/LOhioHealthCreatinine [Mass/Vol]1.11 mg/dL0.80 - 1.30 mg/dLOhioHealthGFR/1.73 sq M.predicted CKD-EPI (S/P/Bld) [Vol rate/Area]65- PINFOhioHealthComment on above:Estimated GFR was calculated using the 2020 CKD-EPI creatinine equation.Glucose [Mass/Vol]105 mg/tLKxfs45 - 99 mg/dLOhioHealthHCO3 [Moles/Vol]24 mmol/L21 - 32 mmol/LOhioHealthInterpretation and review of laboratory resultsAbnormalOhioHealthPotassium [Moles/Vol]4.3 mmol/L3.5 - 5.1 mmol/LOhioHealthSodium [Moles/Vol]141 mmol/L135 - 145 mmol/L OhioHealthUrea nitrogen [Mass/Vol]20 mg/dL8 - 25 mg/dLOhioHealthUrea nitrogen/Creatinine [Mass ratio]18 mg/mg10.0 - 20.0OhioHolmes [facility] has implemented the eGFR calculation approach that does not have a coefficient for race that conforms to the NKF-ASN Task Force Recommendations.OhioHealthBlood type and Indirect antibody screen panel (Bld)on 65-24-7992HBA and Rh group Nom (Bld)Blood group O Rh(D) positiveOhioHealthBlood group antibody screen QlNegativeOhioHealthSpecimen Wdlzjjb4103/19/2025 23:59 EST OhioHealthOhioHealthCBCon 75-47-9788WPDG NRBC0.0 %NormalRiAultman Alliance Community Hospital HospitalComment on above:Performed By: #### [id number] #### [facility] [address] [place], [place] [address] Emmanuel Plata M.D. [id number] NRBC ABS COUNT0.00 K/mcLNormal0.00-0.00RiAultman Alliance Community Hospital HospitalComment on above:Performed By: #### [id number] #### [facility] [address] [place] [address] Emmanuel Plata M.D. [id number] distribution width (RBC) [Ratio]13.3 %Ezvuoq23.6-14.8 [facility] HospitalComment on above:Performed By: #### [id number] #### [facility] [address] [place] [address] Emmanuel Plata M.D. [id number] (Bld) [Volume fraction]36.7 %Low41.0-53.0RiAultman Alliance Community Hospital HospitalComment on above:Performed By: #### [id number] #### [facility] [address] [place], [place] [address] Emmanuel Plata M.D. [id number] (Bld) [Mass/Vol]12.0 g/dLLow13.5-17.5RiAultman Alliance Community Hospital HospitalComment on above:Performed By: #### [id number] #### [facility] [address] [place] [address] Emmanuel Plata M.D. [id number] (RBC) [Entitic mass]29.9 irNdrcla46.0-34.0RiAultman Alliance Community Hospital HospitalComment on above:Performed By: #### [id number] #### [facility] [address] [place] [address] Emmanuel Plata M.D. [id number] (RBC) [Entitic vol]91.3 oQIptisk40.0-100.0RiAultman Alliance Community Hospital HospitalComment on above:Performed By: #### [id number] #### [facility] [address] [place] [address] Emmanuel Plata M.D. [id number] CORPUSCULAR HEMOGLOBIN CONC32.7 g/mXNbswfa95.0-37.0RiAultman Alliance Community Hospital HospitalComment on above:Performed By: #### [id number] #### [facility] [address] [place] [address] Emmanuel Plata M.D. [id number] mean volume (Bld) [Entitic vol]10.1 fLNormal9.4-12.4RiversLake County Memorial Hospital - West HospitalComment on above:Performed By: #### [id number] #### [facility] [address] [place] [address] Emmanuel Plata M.D. [id number] (Bld) [#/Vol]159 10*3/cVEujcha101-419QpqbbyzchCrystal Clinic Orthopedic CenterComment on above:Performed By: #### [id number] #### [facility] [address] [place] [address] Emmanuel Plata M.D. [id number] (Bld) [#/Vol]4.02 10*6/uLLow4.50-5.90RiCrystal Clinic Orthopedic Center Comment on above:Performed By: #### 92953 #### [facility] [address] [place] [address] Emmanuel Plata M.D. [id number] (Bld) [#/Vol]4.27 10*3/uLLow4.50-11.00RiCrystal Clinic Orthopedic Center Comment on above:Performed By: #### [id number] #### [facility] [address] [place] [address] Emmanuel Plata M.D. [id number] panel Auto (Bld)on 44-36-4129Mhqjodivuuf distribution width (RBC) [Entitic vol]13.3 %11.6 - 14.8 %OhioHealthHematocrit (Bld) [Volume fraction]36.7 %Low41.0 - 53.0 %OhioHealthHemoglobin (Bld) [Mass/Vol]12 g/dLLow13.5 - 17.5 g/dL OhioHealthInterpretation and review of laboratory resultsAbnormalOhioHealthMCH (RBC) [Entitic mass]29.9 pg26.0 - 34.0 pgOhioHealthMCHC (RBC) [Mass/Vol]32.7 g/dL31.0 - 37.0 g/dLOhioHealthMCV (RBC) [Entitic vol]91.3 fL80.0 - 100.0 fL OhioHealthNucleated RBC (Bld) [#/Vol]0 10*3/uLOhioHealthNucleated RBC/100 WBC (Bld) [Ratio]0 %OhioHealthPlatelet mean volume (Bld) [Entitic vol]10.1 fL9.4 - 12.4 fLOhioHealthPlatelets (Bld) [#/Vol]159 10*3/uLOhioHealthRBC (Bld) [#/Vol] 4.02 10*6/uLLowOhioHealthWBC (Bld) [#/Vol]4.27 10*3/uLLowOhioHealthOhioHealthINR Coag (PPP) [Relative time]on 69-42-5823YD Coag (PPP) [Time]14.7 sHighOhioHealth During the induction phase of oral anticoagulation, the INR may not reflect the anticoagulation status of the patient. Therapeutic ranges for INR's are: Most clinical situations: INR 2.0-3.0 Mechanical Prosthetic Valve: INR 2.5-3.5 Critical: INR >5.0OhioHealthMAGNESIUM LEVELon 04-04-3939Zlydxmqgt [Mass/Vol]2.3 mg/dLNormal1.6-2.4RLima City HospitalComment on above:Performed By: #### [id number] #### [facility] [address] [place], [place] [address] Emmanuel Plata M.D. [id number] 86-22-2248Iocxdhmav [Mass/Vol]2.3 mg/dL1.6 - 2.4 mg/dL OhioRiverview Health InstituteMagnesium [Mass/Vol]on 51-37-3448Rdyvrejujmhfhz and review of laboratory resultsNormalOhioHealthNo Panel InformationOrdered By: Flory Pino on 94-70-8199Bhbmxbdbtxsiom and review of laboratory resultsAbnormalOhioHealth OhioRiverview Health InstituteNo Panel Informationon 11-64-0982UbxuHoyohyCV/INRon 92-41-3253PSQ Coag (PPP) [Relative time]1.1 {INR}0.8 - 1.1OhioHealthINR Coag (PPP) [Relative time] 1.1 {INR}Normal0.8-1.1RLima City HospitalComment on above:Order Comment: During the induction phase of oral anticoagulation, the INR may not reflect the anticoagulation status of the patient. Therapeutic ranges for INR's are:Most clinical situations: INR 2.0-3.0Mechanical Prosthetic Valve: INR 2.5- 3.5Critical: INR >5.0Performed By: #### [id number] ####[facility] [address] [place] [address] Emmanuel Plata M.D. [id number] Coag (PPP) [Time]14.7 sHigh11.8-14.3RLima City Hospital Comment on above:Order Comment: During the induction phase of oral anticoagulation, the INR may not reflect the anticoagulation status of the patient. Therapeutic ranges for INR's are:Most clinical situations: INR 2.0- 3.0Mechanical Prosthetic Valve: INR 2.5-3.5Critical: INR >5.0Performed By: #### [id number] ####[facility] [address] [place], [place] [address] Emmanuel Plata M.D. [id number] AND SCREENon 03-16-2025 TYPE AND SCREENABORH: O Positive AB SCREEN: Negative EXPIRATION DATE: 03/19/2025 23:59 ESTNormalRiCrystal Clinic Orthopedic CenterComment on above:Performed By: #### [id number] #### [facility] [address] [place] [address] Emmanuel Plata M.D. [id number] SAPHENOUS VEIN [facility] 70-34-6458YY SAPHENOUS VEIN MAPPatient Info Name: Tristin Powell Age: 85 years : 1940 Gender: Male Exam Date: 03/14/2025 9:26 PM Patient Status: INPATIENT Site Location: [facility] Indications Z01.810 - Encounter for preprocedural cardiovascular examination Procedure Description 00898 Duplex examination using B-mode, color and spectral Doppler of extremity veins including responses to compression and other maneuvers; complete bilateral study. Stock Cutter: Cristian Ellis RVT, [facility] Staff Ordering Physician: Beena Barraza Conclusions [...] Aaron Hein MD, RPVI on 03/16/2025 11:[address] Vincent Medical CenterUS UE VEIN [facility]on 48-83-4341IA UE VEIN MAPPatient Info Name: Tristin Powell Age: 85 years : 1940 Gender: Male Exam Date: 03/14/2025 9:20 PM Patient Status: INPATIENT Site Location: [facility] Indications Z01.810 - Encounter for preprocedural cardiovascular examination Procedure Description 98641 Duplex examination using B-mode, color and spectral Doppler of extremity veins including responses to compression and other maneuvers; complete bilateral study. Stock Cutter: Cristian Ellis RVT, [facility] Staff Ordering Physician: Beena Celis * [...] Aaron Hein MD, RPLUIZA on 03/16/2025 11:14 AMNormalRiversProMedica Flower HospitalUltfreeman cancer institute Saphenous vein mappingon 57-07-0802Xvkeiaj Info Name: Tristin Powell Age: 85 years : 1940 Gender: Male Exam Date: 03/14/2025 9:26 PM Patient Status: INPATIENT Site Location: [facility] Indications Z01.810 - Encounter for preprocedural cardiovascular examination Procedure Description 22407 Duplex examination using B-mode, color and spectral Doppler of extremity veins including responses to compression and other maneuvers; complete bilateral study. Stock Cutter: Cristian Ellis RVT, [facility] Staff Ordering Physician: Beena Barraza Conclusions [...] Aaron Hein MD, NATANAEL on 03/16/2025 11:15 [facility] Melvina, Aaron Mas MD - 03/16/2025 Patient Info Name: Tristin Powell Age: 85 years : 1940 Gender: Male Exam Date: 03/14/2025 9:26 PM Patient Status: INPATIENT Site Location: [facility] Indications Z01.810 - Encounter for preprocedural cardiovascular examination Procedure Description 02765 Duplex examination using B-mode, color and spectral Doppler of extremity veins including responses to compression and other maneuvers; complete bilateral study. Stock Cutter: Cristian Ellis RVT, [facility] Staff Ordering Physician: Beena Barraza Conclusions [...] Hein MD, RPVI on 03/16/2025 11:15 AM [facility] extremity vein mappingon 49-65-7763Zlmdejw Info Name: Tristin Powell Age: 85 years : 1940 Gender: Male Exam Date: 03/14/2025 9:20 PM Patient Status: INPATIENT Site Location: [facility] Indications Z01.810 - Encounter for preprocedural cardiovascular examination Procedure Description 49275 Duplex examination using B-mode, color and spectral Doppler of extremity veins including responses to compression and other maneuvers; complete bilateral study. Stock Cutter: Cristian Ellis RVT, [facility] Staff Ordering Physician: Beena Barraza Conclusions [...] Aaron Hein MD, RPVI on 03/16/2025 11:14 AMFUJI SYNAPSE Aaron Hein MD - 03/16/2025 Patient Info Name: Tristin Powell Age: 85 years : 1940 Gender: Male Exam Date: 03/14/2025 9:20 PM Patient Status: INPATIENT Site Location: [facility] Indications Z01.810 - Encounter for preprocedural cardiovascular examination Procedure Description 97598 Duplex examination using B-mode, color and spectral Doppler of extremity veins including responses to compression and other maneuvers; complete bilateral study. Stock Cutter: Cristian Ellis RVT, [facility] Staff Ordering Physician: Beena Barraza Conclusions [...] Hein MD, RPVI on 03/16/2025 11:14 AM [facility] 71-15-6963qYPN Coag (Bld) [Time]33 sOhioHealthaPTT Coag (Bld) [Time]33 kLsbcpe48-74LgyzbuxldCrystal Clinic Orthopedic CenterComment on above:Order Comment: Therapeutic range for APTT's is 68 - 104 secondsPerformed By: #### [id number] ####[facility] [address] [place] [address] Emmanuel Plata M.D. [id number] METABOLIC PANELon 03-15-2025 Anion gap [Moles/Vol]13 mmol/GIwmhsw10-84XiitiuxzyCrystal Clinic Orthopedic CenterComment on above:Order Comment: [facility] has implemented the eGFR calculation approach that does not have a coefficient for race that conforms to the NKF-ASN Task Force Recommendations.Performed By: #### [id number] #### [facility] [address] [place] [address] Emmanuel Plata M.D. [id number] [Mass/Vol]8.9 mg/dLNormal8.4-10.2RiversProMedica Flower Hospital Comment on above:Order Comment: [facility] has implemented the eGFR calculation approach that does not have a coefficient for race that conforms to the NKF-ASN Task Force Recommendations.Performed By: #### [id number] #### [facility] [address] [place] [address] Emmanuel Plata M.D. [id number] [Moles/Vol]108 mmol/RGxkzgc34-290RrbanhuwgCrystal Clinic Orthopedic Center Comment on above:Order Comment: [facility] has implemented the eGFR calculation approach that does not have a coefficient for race that conforms to the NKF-ASN Task Force Recommendations.Performed By: #### [id number] #### [facility] [address] [place], [place] [address] Emmanuel Plata M.D. [id number] [Mass/Vol]1.12 mg/dLNormal0.80-1.30RiCrystal Clinic Orthopedic CenterComment on above:Order Comment: [facility] has implemented the eGFR calculation approach that does not have a coefficient for race that conforms to the NKF-ASN Task Force Recommendations.Performed By: #### 08936 #### [facility] [address] [place] [address] Emmanuel Plata M.D. [id number] mL/min/1.73 q2Fvelne>=60RiCrystal Clinic Orthopedic CenterComment on above:Order Comment: [facility] has implemented the eGFR calculation approach that does not have a coefficient for race that conforms to the NKF-ASN Task Force Recommendations.Result Comment: Estimated GFR was calculated using the 2020 CKD-EPI creatinine equation.Performed By: #### 92563 #### [facility] [address] [place], [place] [address] Emmanuel Plata M.D. [id number] [Mass/Vol]139 mg/nEYyis52-79QtcguoyreCrystal Clinic Orthopedic Center Comment on above:Order Comment: [facility] has implemented the eGFR calculation approach that does not have a coefficient for race that conforms to the NKF-ASN Task Force Recommendations.Performed By: #### [id number] #### [facility] [address] [place], [place] [address] Emmanuel Plata M.D. [id number] (Bld) [Moles/Vol]24 mmol/IFzyuzb46-88YdyvzewdxCrystal Clinic Orthopedic Center Comment on above:Order Comment: [facility] has implemented the eGFR calculation approach that does not have a coefficient for race that conforms to the NKF-ASN Task Force Recommendations.Performed By: #### 95238 #### [facility] [address] [place] [address] Emmanuel Plata M.D. [id number] [Moles/Vol]3.9 mmol/LNormal3.5-5.1RLima City HospitalComment on above:Order Comment: [facility] has implemented the eGFR calculation approach that does not have a coefficient for race that conforms to the NKF-ASN Task Force Recommendations.Performed By: #### 74025 #### [facility] [address] [place], [place] [address] Emmanuel Plata M.D. [id number] [Moles/Vol]141 mmol/MUkdyop072-235VkylyuoivMercy Health St. [facility] Comment on above:Order Comment: [facility] has implemented the eGFR calculation approach that does not have a coefficient for race that conforms to the NKF-ASN Task Force Recommendations.Performed By: #### 74211 #### [facility] [address] [place], [place] [address] Emmanuel Plata M.D. [id number] nitrogen [Mass/Vol]19 mg/dLNormal8-25[facility] Comment on above:Order Comment: [facility] has implemented the eGFR calculation approach that does not have a coefficient for race that conforms to the NKF-ASN Task Force Recommendations.Performed By: #### 58520 #### [facility] [address] [place], [place] [address] Emmanuel Plata M.D. [id number] nitrogen/Creatinine [Mass ratio]17.0 mg/yhTpbnpn64.0-20.[address] [facility] Medical CenterComment on above:Order Comment: [facility] has implemented the eGFR calculation approach that does not have a coefficient for race that conforms to the NKF-ASN Task Force Recommendations.Performed By: #### [id number] #### [facility] [address] [place], [place] [address] Emmanuel Plata M.D. [id number] metabolic 2000 panelon 25-41-9344Lwutc gap [Moles/Vol]13 mmol/L 10 - 20 mmol/LOhioHealthCalcium [Mass/Vol]8.9 mg/dL8.4 - 10.2 mg/dLOhioHealth Chloride [Moles/Vol]108 mmol/L98 - 108 mmol/LOhioHealthCreatinine [Mass/Vol]1.12 mg/dL0.80 - 1.30 mg/dLOhioHealthGFR/1.73 sq M.predicted CKD-EPI (S/P/Bld) [Vol rate/Area]64- PINFOhioHealthComment on above:Estimated GFR was calculated using the 2020 CKD-EPI creatinine equation.Glucose [Mass/Vol]139 mg/dZNvoq91 - 99 mg/dLOhioHealthHCO3 [Moles/Vol]24 mmol/L21 - 32 mmol/LOhioHealthInterpretation and review of laboratory resultsAbnormalOhioHealthPotassium [Moles/Vol]3.9 mmol/L3.5 - 5.1 mmol/LOhioHealthSodium [Moles/Vol]141 mmol/L135 - 145 mmol/L OhioHealthUrea nitrogen [Mass/Vol]19 mg/dL8 - 25 mg/dLOhioHealthUrea nitrogen/Creatinine [Mass ratio]17 mg/mg10.0 - 20.0[facility] has implemented the eGFR calculation approach that does not have a coefficient for race that conforms to the NKF-ASN Task Force Recommendations.[facility] 05-88-6096OPCI NRBC0.0 %NormalRiAultman Alliance Community Hospital HospitalComment on above:Performed By: #### [id number] #### [facility] [address] [place] [address] Emmanuel Plata M.D. [id number] NRBC ABS COUNT0.00 K/mcLNormal0.00-0.00RiCrystal Clinic Orthopedic CenterComment on above:Performed By: #### [id number] #### [facility] [address] [place], [place] [address] Emmanuel Plata M.D. [id number] distribution width (RBC) [Ratio]13.4 %Zavpzt67.6-14.[address] [facility] Medical CenterComment on above:Performed By: #### [id number] #### [facility] [address] [place], [place] [address] Emmanuel Plata M.D. [id number] (Bld) [Volume fraction]34.9 %Low41.0-53.0RiCrystal Clinic Orthopedic CenterComment on above:Performed By: #### 82238 #### [facility] [address] [place], [place] [address] Emmanuel Plata M.D. [id number] (Bld) [Mass/Vol]11.7 g/dLLow13.5-17.5RiversLake County Memorial Hospital - West HospitalComment on above:Performed By: #### [id number] #### [facility] [address] [place] [address] Emmanuel Plata M.D. [id number] (RBC) [Entitic mass]30.4 lsKsqacr73.0-34.0RiAultman Alliance Community Hospital HospitalComment on above:Performed By: #### 81270 #### [facility] [address] [place] [address] Emmanuel Plata M.D. [id number] (RBC) [Entitic vol]90.6 xNEcbole66.0-100.0RiversLake County Memorial Hospital - West HospitalComment on above:Result Comment: Repeated AND verifiedPerformed By: #### [id number] #### [facility] [address] [place] [address] Emmanuel Plata M.D. [id number] CORPUSCULAR HEMOGLOBIN CONC33.5 g/jNOsmzkc05.0-37.0RiAultman Alliance Community Hospital HospitalComment on above:Result Comment: Repeated AND verified Performed By: #### [id number] #### [facility] [address] [place] [address] Emmanuel Plata M.D. [id number] mean volume (Bld) [Entitic vol]9.9 fLNormal9.4-12.4[facility]ondo[facility] HospitalComment on above:Performed By: #### [id number] #### [facility] [address] [place], [place] [address] Emmanuel Plata M.D. [id number] (Bld) [#/Vol]144 10*3/nDSuw774-653Gamgnflgg Methodist HospitalComment on above:Performed By: #### [id number] #### [facility] [address] [place] [address] Emmanuel Plata M.D. [id number] (Bld) [#/Vol]3.85 10*6/uLLow4.50-5.90[facility] Comment on above:Performed By: #### 26010 #### [facility] [address] [place] [address] Emmanuel Plata M.D. [id number] (Bld) [#/Vol]3.23 10*3/uLLow4.50-11.00[facility] Comment on above:Performed By: #### [id number] #### [facility] [address] [place] [address] Emmanuel Plata M.D. [id number] panel Auto (Bld)on 98-71-2090Gvxrkxdiysd distribution width (RBC) [Entitic vol]13.4 %11.6 - 14.8 %OhioHealthHematocrit (Bld) [Volume fraction]34.9 %Low41.0 - 53.0 %OhioHealthHemoglobin (Bld) [Mass/Vol]11.7 g/dLLow13.5 - 17.5 g/dLOhioHealthInterpretation and review of laboratory resultsAbnormalOhioHealth MCH (RBC) [Entitic mass]30.4 pg26.0 - 34.0 pgOhioHealthMCHC (RBC) [Mass/Vol]33.5 g/dL31.0 - 37.0 g/dLOhioHealthComment on above:Repeated & verifiedMCV (RBC) [Entitic vol]90.6 fL80.0 - 100.0 fLOhioHealthComment on above:Repeated & verifiedNucleated RBC (Bld) [#/Vol]0 10*3/uLOhioHealthNucleated RBC/100 WBC (Bld) [Ratio]0 %OhioHealthPlatelet mean volume (Bld) [Entitic vol]9.9 fL9.4 - 12.4 fLOhioHealthPlatelets (Bld) [#/Vol]144 10*3/uLLowOhioHealthRBC (Bld) [#/Vol]3.85 10*6/uLLowOhioHealthWBC (Bld) [#/Vol]3.23 10*3/uLLowOhioHealth OhioHealthECG 12 [place] 21-03-4401Nhvdil Itto58GUTPiykExlnmyH Ddbt10ibopljp OhioHealthP-R Pfomjxmx432 msOhioHealthQ-T Spcjggci673 msOhioHealthQRS Igpficew16 msOhioHealthQTC Calculation (Bezet)470 msOhioHealthR Yozh38hcwkcrzYoqpWateosX Wbkk06cnrhrrvHzzwOozknwZxnwgkrtzgs Dudu76XSIYhncFernlrSlhkg rhythm with Premature supraventricular complexes Otherwise normal ECG Confirmed by OTILIO MONTOYA M.D. ([id number]) on 03/15/2025 6:58:39 AMMUSEOhioHealth HEMOGLOBIN AND HEMATOCRITon 96-34-7415Oakanrzamb (Bld) [Volume fraction]31.0 % Low41.0-53.0RiversProMedica Flower HospitalComment on above:Performed By: #### [id number] #### [facility] [address] [place], [place] [address] Emmanuel Plata M.D. [id number] (Bld) [Mass/Vol]12.4 g/dLLow13.5-17.5RiCrystal Clinic Orthopedic CenterComment on above:Performed By: #### [id number] #### [facility] [address] [place] [address] Emmanuel Plata M.D. [id number] and Hematocrit panel (Bld)on 58-00-0118Smgaodoxvx (Bld) [Volume fraction]31 %Low41.0 - 53.0 %OhioHealthHemoglobin (Bld) [Mass/Vol]12.4 g/dLLow13.5 - 17.5 g/dLOhioHealthInterpretation and review of laboratory results AbnormalOhioHealthOhioHealthMAGNESIUM LEVELon 17-72-9901Lwmxlbqlu [Mass/Vol]2.2 mg/dLNormal1.6-2.4RiversProMedica Flower HospitalComment on above:Performed By: #### [id number] #### [facility] [address] [address] Emmanuel Plata M.D. [id number] 56-14-3481Pbgtvbgno [Mass/Vol]2.2 mg/dL1.6 - 2.4 mg/dL OhioRiverview Health InstituteMagnesium [Mass/Vol]on 59-70-7447Huujwapzkqhnnv and review of laboratory resultsNormalOhioHealthNo Panel Informationon 19-33-1643DhknSkpodl Repeat EKGon 75-28-5638Wumupd Hfnk47LHYFtuzBkhflcW-S Zowjemga499 msOhioHealthQ-T Bfiwftbu930 msOhioHealthQRS Suwgcqgy44 msOhioHealthQTC Calculation (Bezet)502 msOhioHealthR Ktwx33tkvpwdnCgpjScxikbR Bywk35mfiosmiSvwaTpetcxYbrjqpqsxzm Rate93 BPMOhioHealthSinus rhythm with frequent Premature ventricular complexes Prolonged QT Abnormal ECG Confirmed by OTILIO MONTOYA M.D. ([id number]) on 03/15/2025 7:01:22 AMMUSEOhioHealthaPTT Coag (Bld) [Time]on 04-28-2633Aqkgavapjkxejo and review of laboratory results NormalOhioHealthTherapeutic range for APTT's is 68 - 104 secondsACMC Healthcare System metabolic 1998 panelOrdered By: Regina Dillon on 17-02-4396Wgebm gap [Moles/Vol]16 mmol/L10 - 20 mmol/LOhioHealthChloride [Moles/Vol]102 mmol/L 98 - 108 mmol/LOhioHealthCreatinine [Mass/Vol]1.12 mg/dL0.80 - 1.30 mg/dL [facility]ostoria City HospitalGFR/1.73 sq M.predicted CKD-EPI (S/P/Bld) [Vol rate/Area]64- PINF OhioRiverview Health InstituteComment on above:Estimated GFR was calculated using the 2020 CKD-EPI creatinine equation.Glucose [Mass/Vol]100 mg/kTUxxs53 - 99 mg/dLOhioHealthHCO3 [Moles/Vol]25 mmol/L21 - 32 mmol/LOhioHealthInterpretation and review of laboratory resultsAbnormalOhioHealthPotassium [Moles/Vol]3.8 mmol/L3.5 - 5.1 mmol/LOhioHealthSodium [Moles/Vol]139 mmol/L135 - 145 mmol/LOhioHealthUrea nitrogen [Mass/Vol]20 mg/dL8 - 25 mg/dLOhioHealthUrea nitrogen/Creatinine [Mass ratio]17.9 mg/mg10.0 - 20.0OhACMC [facility] has implemented the eGFR calculation approach that does not have a coefficient for race that conforms to the NKF-ASN Task Force Recommendations.[facility] Auto Differentialon 73-34-6572Scncxcxjm (Bld) [#/Vol]0.02 10*3/uL OhioHealthBasophils/100 WBC (Bld)0.6 %OhioHealthEosinophils (Bld) [#/Vol]0.12 10*3/uLOhioHealthEosinophils/100 WBC (Bld)3.4 %[facility] City HospitalErythrocyte distribution width (RBC) [Entitic vol]13.5 %11.6 - 14.8 %[facility] HospitalHematocrit (Bld) [Volume fraction]39.3 %Low41.0 - 53.0 %[facility] City HospitalHemoglobin (Bld) [Mass/Vol]13.2 g/dLLow13.5 - 17.5 g/dLOhioHealthImmature granulocytes (Bld) [#/Vol]0.01 10*3/uLOhioHealthImmature granulocytes/100 WBC (Bld)0.3 %[facility] Comment on above:The IG parameter is the percentage of metamyelocytes, myelocytes and promyelocytes. An immature granulocyte count (IG) of 1% or more suggests the possibility of infection, an IG count of 3% is very likely related to an infection.Interpretation and review of laboratory resultsAbnormal [facility] City HospitalLymphocytes (Bld) [#/Vol]0.65 10*3/uLLowOhioHealthLymphocytes/100 WBC (Bld)18.6 %[facility] City HospitalMCH (RBC) [Entitic mass]30.4 pg26.0 - 34.0 pgOhioHealthMCHC (RBC) [Mass/Vol]33.6 g/dL31.0 - 37.0 g/dLOhioHealthMCV (RBC) [Entitic vol]90.6 fL80.0 - 100.0 fLOhioHealthMonocytes (Bld) [#/Vol]0.81 10*3/uLOhioHealth Monocytes/100 WBC (Bld)23.1 %OhioHealthNeutrophils (Bld) [#/Vol]1.89 10*3/uL OhioHealthNeutrophils/100 WBC (Bld)54 %OhioHealthComment on above:Peripheral smear reviewed manuallyNucleated RBC (Bld) [#/Vol]0 10*3/uLOhioHealthNucleated RBC/100 WBC (Bld) [Ratio]0 %OhioHealthPlatelet mean volume (Bld) [Entitic vol] 9.3 fLLow9.4 - 12.4 fLOhioHealthPlatelets (Bld) [#/Vol]173 10*3/uLOhioHealthRBC (Bld) [#/Vol]4.34 10*6/uLLowOhioHealthWBC (Bld) [#/Vol]3.5 10*3/uLLowOhioHealth OhioHealthCBC WITH AUTO DIFFERENTIALon 01-88-2370KHWY NRBC0.0 %NormalRiverside Cheondoism HospitalComment on above:Performed By: #### [id number] #### [facility] [address] [place], [place] [address] Emmanuel Plata M.D. [id number] NRBC ABS COUNT0.00 K/mcLNormal0.00-0.00Riverside Cheondoism HospitalComment on above:Performed By: #### [id number] #### [facility] [address] [place] [address] Emmanuel Plata M.D. [id number] ABSOLUTE COUNT0.02 K/mcLNormal0.00-0.30Riverside Cheondoism HospitalComment on above:Performed By: #### [id number] #### [facility] [address] [place], [place] [address] Emmanuel Plata M.D. [id number]/100 WBC (Bld)0.6 %NormalRiAultman Alliance Community Hospital HospitalComment on above:Performed By: #### [id number] #### [facility] [address] [place], [place] [address] Emmanuel Plata M.D. [id number] (Bld) [#/Vol]0.12 10*3/uLNormal0.00-0.50RiAultman Alliance Community Hospital HospitalComment on above:Performed By: #### [id number] #### [facility] [address] [place] [address] Emmanuel Plata M.D. [id number]/100 WBC (Bld)3.4 %NormalRiAultman Alliance Community Hospital Hospital Comment on above:Performed By: #### [id number] #### [facility] [address] [place] [address] Emmanuel Plata M.D. [id number] distribution width (RBC) [Ratio]13.5 %Vlsikq99.6-14.8 [facility] HospitalComment on above:Performed By: #### [id number] #### [facility] [address] [place], [place] [address]Nessa Plata M.D. [id number] (Bld) [Volume fraction]39.3 %Low41.0-53.0RiAultman Alliance Community Hospital HospitalComment on above:Performed By: #### 42153 #### [facility] [address] [place], [place] [address] Emmanuel Plata M.D. [id number] (Bld) [Mass/Vol]13.2 g/dLLow13.5-17.5RiAultman Alliance Community Hospital HospitalComment on above:Performed By: #### [id number] #### [facility] [address] [place], [place] [address]Nessa Plata M.D. [id number] ABSOLUTE0.01 K/mcLNormal0.00-0.30[facility] Comment on above:Performed By: #### [id number] #### [facility] [address] [place], [place] [address] Emmanuel Plata M.D. [id number] PERCENT0.30 %NormalBrecksville Va [facility]ille [facility] HospitalComment on above: Result Comment: The IG parameter is the percentage of metamyelocytes, myelocytes and promyelocytes.An immature granulocyte count (IG) of 1% or more suggests the possibility of infection, an IG countof 3% is very likely related to an infection.Performed By: #### [id number] #### [facility] [address] [place] [address] Emmanuel Plata M.D. [id number] (Bld) [#/Vol]0.65 10*3/uLLow0.90-4.00[facility] Medical CenterComment on above:Performed By: #### 11098 #### [facility] [address] [place] [address] Emmanuel Plata M.D. [id number]/100 WBC (Bld)18.6 %[facility] Comment on above:Performed By: #### [id number] #### [facility] [address] [place], [place] [address] Emmanuel Plata M.D. [id number] (RBC) [Entitic mass]30.4 egKfrpzf57.0-34.0[facility] Vincent Medical CenterComment on above:Performed By: #### [id number] #### [facility] [address] [place], [place] [address] Emmanuel Plata M.D. [id number] (RBC) [Entitic vol]90.6 fZHerwde70.0-100.0RiCrystal Clinic Orthopedic CenterComment on above:Performed By: #### [id number] #### [facility] [address] [place], [place] [address] Emmanuel Plata M.D. [id number] CORPUSCULAR HEMOGLOBIN CONC33.6 g/eIVazwsq73.0-37.0[facility] Medical CenterComment on above:Performed By: #### [id number] #### [facility] [address] [place], [place] [address] Emmanuel Plata M.D. [id number] (Bld) [#/Vol]0.81 10*3/uLNormal0.30-0.90RiCrystal Clinic Orthopedic CenterComment on above:Performed By: #### 77703 #### [facility] [address] [place], [place] [address] Emmanuel Plata M.D. [id number]/100 WBC (Bld)23.1 %NormalRiCrystal Clinic Orthopedic CenterComment on above:Performed By: #### 65945 #### [facility] [address] [place], [place] [address] Emmanuel Plata M.D. [id number] ABSOLUTE COUNT1.89 K/mcLNormal1.70-7.00RiCrystal Clinic Orthopedic CenterComment on above:Performed By: #### [id number] #### [facility] [address] [place], [place] [address] Emmanuel Plata M.D. [id number]/100 WBC (Bld)54.0 %[facility] Comment on above:Result Comment: Peripheral smear reviewed manuallyPerformed By: #### [id number] #### [facility] [address] [place], [place] [address] Emmanuel Plata M.D. [id number] mean volume (Bld) [Entitic vol]9.3 fLLow9.4-12.4RiversProMedica Flower HospitalComment on above:Performed By: #### 47617 #### [facility] [address] [place] [address] Emmanuel Plata M.D. [id number] (Bld) [#/Vol]173 10*3/fBNvdyve642-544QggsvervaMercy Health St. Vincent Medical CenterComment on above:Performed By: #### 63046 #### [facility] [address] [place], [place] [address] Emmanuel Plata M.D. [id number] (Bld) [#/Vol]4.34 10*6/uLLow4.50-5.90[facility] Comment on above:Performed By: #### 51516 #### [facility] [address] [place] [address] Emmanuel Plata M.D. [id number] (Bld) [#/Vol]3.50 10*3/uLLow4.50-11.00[facility] Comment on above:Performed By: #### 15959 #### [facility] [address] [place], [place] [address] Emmanuel Plata M.D. [id number] 754-91-7009Goemz gap [Moles/Vol]16 mmol/EBibiqi64-74YkojiexynMercy Health St. Vincent Medical CenterComment on above:Order Comment: [facility] has implemented the eGFR calculation approach that does not have a coefficient for race that conforms to the NKF-ASN Task Force Recommendations.Performed By: #### 84838 #### [facility] [address] [place] [address] Emmanuel Plata M.D. [id number] [Moles/Vol]102 mmol/QVqtzzw98-593RsebcviiiMercy Health St. [facility] Comment on above:Order Comment: [facility] has implemented the eGFR calculation approach that does not have a coefficient for race that conforms to the NKF-ASN Task Force Recommendations.Performed By: #### [id number] #### [facility] [address] [place] [address] Emmanuel Plata M.D. [id number] [Mass/Vol]1.12 mg/dLNormal0.80-1.30RiCrystal Clinic Orthopedic CenterComment on above:Order Comment: [facility] has implemented the eGFR calculation approach that does not have a coefficient for race that conforms to the NKF-ASN Task Force Recommendations.Performed By: #### [id number] #### [facility] [address] [place] [address] Emmanuel Plata M.D. [id number] mL/min/1.73 z6Yjnwcz>=60RiCrystal Clinic Orthopedic CenterComment on above:Order Comment: [facility] has implemented the eGFR calculation approach that does not have a coefficient for race that conforms to the NKF-ASN Task Force Recommendations.Result Comment: Estimated GFR was calculated using the 2020 CKD-EPI creatinine equation.Performed By: #### [id number] #### [facility] [address] [place], [place] [address] Emmanuel Plata M.D. [id number] [Mass/Vol]100 mg/oBZvep24-05ElabeejctCrystal Clinic Orthopedic Center Comment on above:Order Comment: [facility] has implemented the eGFR calculation approach that does not have a coefficient for race that conforms to the NKF-ASN Task Force Recommendations.Performed By: #### 36704 #### [facility] [address] [place], [place] [address] Emmanuel Plata M.D. [id number] (Bld) [Moles/Vol]25 mmol/KPflkqb99-70EampjnavgMercy Health St. [facility] Comment on above:Order Comment: [facility] has implemented the eGFR calculation approach that does not have a coefficient for race that conforms to the NKF-ASN Task Force Recommendations.Performed By: #### 05429 #### [facility] [address] [place] [address] Emmanuel Plata M.D. [id number] [Moles/Vol]3.8 mmol/LNormal3.5-5.1RLima City HospitalComment on above:Order Comment: [facility] has implemented the eGFR calculation approach that does not have a coefficient for race that conforms to the NKF-ASN Task Force Recommendations.Performed By: #### 91686 #### [facility] [address] [place] [address] Emmanuel Plata M.D. [id number] [Moles/Vol]139 mmol/TZjmite794-284PqpcrevgtMercy Health St. [facility] Comment on above:Order Comment: [facility] has implemented the eGFR calculation approach that does not have a coefficient for race that conforms to the NKF-ASN Task Force Recommendations.Performed By: #### 52541 #### [facility] [address] [place] [address] Emmanuel Plata M.D. [id number] nitrogen [Mass/Vol]20 mg/dLNormal8-25RiCrystal Clinic Orthopedic Center Comment on above:Order Comment: [facility] has implemented the eGFR calculation approach that does not have a coefficient for race that conforms to the NKF-ASN Task Force Recommendations.Performed By: #### [id number] #### [facility] [address] [place], [place] [address] Emmanuel Plata M.D. [id number] nitrogen/Creatinine [Mass ratio]17.9 mg/ulIoeynf58.0-20.[address] Vincent Medical CenterComment on above:Order Comment: [facility] has implemented the eGFR calculation approach that does not have a coefficient for race that conforms to the NKF-ASN Task Force Recommendations.Performed By: #### [id number] #### [facility] [address] [place], [place] [address] Emmanuel Plata M.D. [id number] 53-05-0137KOZLHTP Attestation signed by Ben Hahn MD at [...] He underwent angiography 2 days ago in [place] where he was found to have progressive [...] of bone of hip ([facility]) Claudication COPD (chronic obstructive pulmonary disease) ([facility]) Coronary artery disease Herpes zoster Hyperlipidemia Hypertension PAD (peripheral artery disease) ([facility]) 01/21/2022 Posterior tibial tendinitis of right leg 11/07/2022 Prostate cancer ([facility]) Vascular disease Allergies: Doxycycline and Gabapentin Current [...] vascular surgery colleagues I personally performed a zvqk-jf-tgts diagnostic evaluation on this patient on the [...] (NARCAN) injection 0.4 mg 0.4 mg Intravenous HERNANN Muna Otto MD ondansetron (ZOFRAN) injection 4 mg 4 mg Intravenous Q6H (more content not included)...NormalRiverside St. Joseph Medical CenterSULT Attestation signed by Mohsen Sarabia MD at 03/16/2025 10:33 AM Patient seen and examined. I have personally reviewed all pertinent labs, radiological studies and records. I have personally examined the patient and agree with resident/MINIATURE MODEL MAKER/PA assessment and plan with the following [...] (2019, [place]), left TMA who presented to [facility] on 03/14/2025 with worsening RLE [...] Beena Barraza MD General Surgery Resident, PGY-[address] [facility] Please contact surgical internal control analyst site damage prevention technician 5PM-6AM and weekends - #[phone] VTS Pager - #[phone] Admitted with these risk variables:None. Please see [...] PAD (peripheral artery disease) ([facility]) 01/21/2022 Posterior tibial tendinitis of right leg 11/07/2022 Prostate cancer (HCC) Vascular disease Past Surgical History: Procedure Laterality Date 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/08/2018 Procedure: LEFT MIDFOOT AMPUTATION; Surgeon: Flynn Mann DPM; Location: [facility] OR; Service: Podiatry ANKLE SURGERY Left BYPASS PERONEAL FEMORAL Right 09/07/2018 Procedure: BYPASS PERONEAL FEMORAL, RIGHT SAPHENOUS VEIN HARVEST, COMPLETION ANGIOGRAM; Surgeon: Mohsen Sarabia MD; Location: [facility] NEURO OR; Service: Cardiovascular CARDIAC CATHETERIZATION Left 09/05/2018 Procedure: Angio Lower Extremity; Surgeon: Ben Hahn MD; Location: [facility] 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; Service: Cardiovascular CARDIAC SURGERY 2017 triple bypass EGD N/A 10/10/2018 Procedure: ESOPHAGOGASTRODUODENOSCOPY; Surgeon: Ben Jensen MD; Location[place] [facility]; Service: Gastroenterology EYE SURGERY Right 2014 [...] equal chest rise Extremiti (more content not included)...NormalRiverside Hendrick Medical Center BrownwoodED Prov Noteon 60-22-3167YC Prov NoteED PROVIDER NOTE [facility] Patient Name: Tristin Powell [...] Course User Index [EK] Elaine Macdonald MD [facility] Data: I saw and evaluated the [...] of bone of hip ([facility]) - Claudication - COPD (chronic obstructive pulmonary disease) ([facility]) - Coronary artery disease - Herpes zoster - Hyperlipidemia - Hypertension - PAD (peripheral artery disease) ([facility]) 01/21/2022 - Posterior tibial tendinitis of right leg 11/07/2022 - Prostate cancer ([facility]) - Vascular disease Past Surgical History: Procedure Laterality Date - 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/08/2018 Procedure: LEFT MIDFOOT AMPUTATION; Surgeon: Flynn Mann DPM; Location: [facility] OR; Service: Podiatry - ANKLE SURGERY Left - BYPASS PERONEAL FEMORAL Right 09/07/2018 Procedure: BYPASS PERONEAL FEMORAL, RIGHT SAPHENOUS VEIN HARVEST, COMPLETION ANGIOGRAM; Surgeon: Mohsen Sarabia MD; Location: [facility] NEURO OR; Service: Cardiovascular - CARDIAC CATHETERIZATION Left 09/05/2018 Procedure: Angio Lower Extremity; Surgeon: Ben Hahn MD; Location: [facility] 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; Service: Cardiovascular - CARDIAC SURGERY 2017 triple bypass - EGD N/A 10/10/2018 Procedure: ESOPHAGOGASTRODUODENO (more content not included)...NormalRiverside [facility] 82-86-9921Avyjb TubeHold for add-ons.[facility] Comment on above:Auto resulted.[facility] Topon 86-40-4407Wffww TubeHold for add-ons.[facility] HospitalComment on above:Auto resulted.INR Coag (PPP) [Relative time] on 19-71-2738Xdepjsqbmldvay and review of laboratory resultsAbnormalOhioHealthPT Coag (PPP) [Time]14.6 sHighOhioHealthDuring the induction phase of oral anticoagulation, the INR may not reflect the anticoagulation status of the patient. Therapeutic ranges for INR's are: Most clinical situations: INR 2.0-3.0 Mechanical Prosthetic Valve: INR 2.5-3.5 Critical: INR >5.0OhioHealthOhioHealthNo Panel Informationon 03-14-2025 OhioHealthPT/INRon 16-34-3901ZUU Coag (PPP) [Relative time]1.1 {INR}0.8 - 1.1 OhioHealthINR Coag (PPP) [Relative time]1.1 {INR}Normal0.8-1.1RLima City HospitalComment on above:Order Comment: Therapeutic range for APTT's is 68 - 104 secondsPerformed By: #### [id number] #### [facility] [address] [place], [place] [address] Emmanuel Plata M.D. [id number] Coag (PPP) [Time]14.6 sHigh11.8-14.3RLima City Hospital Comment on above:Order Comment: Therapeutic range for APTT's is 68 - 104 seconds Performed By: #### [id number] #### [facility] [address] [place] [address] Emmanuel Plata M.D. [id number] ANKLE/BRACHIAL INDICES EXTREMITY LIMITEDon 48-51-3531IT ANKLE/BRACHIAL INDICES EXTREMITY LIMITEDPatient Info Name: Tristin Powell Age: 85 years : 1940 Gender: Male Exam Date: 03/14/2025 8:20 AM Patient Status: OUTPATIENT Site Location: [facility] Indications I73.9 - Peripheral vascular disease, unspecified Procedure Description 72394 Limited bilateral noninvasive physiologic studies of upper or lower extremity arteries with bidirectional Doppler/PVR waveform analysis at 1-2 levels. Stock Cutter: Ernestina Campos RVT, EMIRAL Staff Ordering Physician: Mohsen Sarabia MD, RPLUIZA [...] Segmental BP RIGHT Brachial A mmH RIGHT CSM CONSULTANT mmH RIGHT CSM CONSULTANT Index: 0.31 RIGHT DPA mmH RIGHT DPA Index: 0.50 RIGHT Digit mmH RIGHT YAMILE Index: 0.50 RIGHT TBI Index: 0.00 LEFT Brachial A mmH LEFT CSM CONSULTANT Index: 0.40 LEFT CSM CONSULTANT mmH LEFT DPA Index: 0.55 LEFT DPA mmH LEFT YAMILE Index: 0.55 Doppler RIGHT CSM CONSULTANT Waveform: Monophasic RIGHT DPA Waveform: Monophasic LEFT CSM CONSULTANT Waveform: Monophasic LEFT DPA Waveform: Biphasic , PVR RIGHT Ankle Grade: Abnormal RIGHT Transmetarsal Grade: Absent RIGHT Digit (PPG) Grade: Absent LEFT Ankle Grade: Abnormal Prior Interventions 09/07/2018 bypass graft- left fem-peroneal. Report Signatures Finalized by Radha Lomas DO, INOCENCIO, NATANAEL, FS on 03/14/2025 11:55 AMNormalRiverside Cheondoism HospitalUS ANKLE/BRACHIAL INDICES EXTREMITY LIMITED Patient Info Name: Tristin Powell Age: 85 years : 1940 Gender: Male Exam Date: 03/14/2025 8:20 AM Patient Status: OUTPATIENT Site Location: [facility] Indications I73.9 - Peripheral vascular disease, unspecified Procedure Description 52675 Limited bilateral noninvasive physiologic studies of upper or lower extremity arteries with bidirectional Doppler/PVR waveform analysis at 1-2 levels. Stock Cutter: Ernestina Campos RVT, EMIRAL Staff Ordering Physician: Mohsen Sarabia MD, RPLUIZA [...] Segmental BP RIGHT Brachial A mmH RIGHT CSM CONSULTANT mmH RIGHT CSM CONSULTANT Index: 0.31 RIGHT DPA mmH RIGHT DPA Index: 0.50 RIGHT Digit mmH RIGHT YAMILE Index: 0.50 RIGHT TBI Index: 0.00 LEFT Brachial A mmH LEFT CSM CONSULTANT Index: 0.40 LEFT CSM CONSULTANT mmH LEFT DPA Index: 0.55 LEFT DPA mmH LEFT YAMILE Index: 0.55 Doppler RIGHT CSM CONSULTANT Waveform: Monophasic RIGHT DPA Waveform: Monophasic LEFT CSM CONSULTANT Waveform: Monophasic LEFT DPA Waveform: Biphasic , PVR RIGHT Ankle Grade: Abnormal RIGHT Transmetarsal Grade: Absent RIGHT Digit (PPG) Grade: Absent LEFT Ankle Grade: Abnormal Prior Interventions 09/07/2018 bypass graft- left fem-peroneal. Report Signatures Finalized by Radha Lomsa DO, INOCENCIO, RPVI, FSVM on 03/14/2025 11:55 AM Dictated by: RADHA SU on MonMar 14, 2025 11:55:02 AM EDT Transcribed by: RADHA SU on MonMar 14, 2025 11:55:02 AM EDT Finalized by: RADHA SU on MonMar 14, 2025 11:55:02 AM EDTNormalRiverside Hendrick Medical Center BrownwoodUS DUPLEX ARTERIAL LEG RIGHTon 20-38-4509HQ DUPLEX ARTERIAL LEG RIGHTPatient Info Name: Tristin Powell Age: 85 years : 1940 Gender: Male Exam Date: 03/14/2025 8:20 AM Patient Status: OUTPATIENT Site Location: [facility] Indications I73.9 - Peripheral vascular disease, unspecified Procedure Description 71543 Duplex scan of lower extremity arteries or arterial bypass grafts using B-mode, color and spectral Doppler; unilateral or limited study. Stock Cutter: Ernestina Campos RVT, RDAL Staff Ordering Physician: Mohsen Sarabia MD, RPLUIZA Conclusions * 50-99% stenosis in the right mid superficial femoral artery. * Unable to obtain right external iliac artery images due to bandaging from recent procedure. Risk Factors Patient with a history of hypertension, hyperlipidemia, CAD and PAD. Measurements RIGHT INDUSTRIAL YARD BRAKE COUPLER PSV (cm/s): 115 RIGHT INDUSTRIAL YARD BRAKE COUPLER EDV (cm/s): 7 RIGHT Prox PFA PSV [...] Distal LAUREL EDV (cm/s): 6 RIGHT Prox CSM CONSULTANT PSV (cm/s): 81 RIGHT Prox CSM CONSULTANT EDV (cm/s): 14 RIGHT Mid CSM CONSULTANT PSV (cm/s): 38 RIGHT Mid CSM CONSULTANT EDV (cm/s): 6 RIGHT Distal CSM CONSULTANT PSV (cm/s): 57 RIGHT Distal CSM CONSULTANT EDV (cm/s): 20 RIGHT Prox Gabriela PSV [...] DO, RVT, RPVI, FSVM on 03/14/2025 11:57 AMNormalRiverside Cheondoism HospitalUS DUPLEX ARTERIAL LEG RIGHTPatient Info Name: Tristin Powell Age: 85 years : 1940 Gender: Male Exam Date: 03/14/2025 8:20 AM Patient Status: OUTPATIENT Site Location: [facility] Indications I73.9 - Peripheral vascular disease, unspecified Procedure Description 88274 Duplex scan of lower extremity arteries or arterial bypass grafts using B-mode, color and spectral Doppler; unilateral or limited study. Stock Cutter: Ernestina Campos RVT, [facility] Staff Ordering Physician: Mohsen Sarabia MD, [facility] Conclusions * 50-99% stenosis in the right mid superficial femoral artery. * Unable to obtain right external iliac artery images due to bandaging from recent procedure. Risk Factors Patient with a history of hypertension, hyperlipidemia, CAD and PAD. Measurements RIGHT INDUSTRIAL YARD BRAKE COUPLER PSV (cm/s): 115 RIGHT INDUSTRIAL YARD BRAKE COUPLER EDV (cm/s): 7 RIGHT Prox PFA PSV [...] Distal LAUREL EDV (cm/s): 6 RIGHT Prox CSM CONSULTANT PSV (cm/s): 81 RIGHT Prox CSM CONSULTANT EDV (cm/s): 14 RIGHT Mid CSM CONSULTANT PSV (cm/s): 38 RIGHT Mid CSM CONSULTANT EDV (cm/s): 6 RIGHT Distal CSM CONSULTANT PSV (cm/s): 57 RIGHT Distal CSM CONSULTANT EDV (cm/s): 20 RIGHT Prox Gabriela PSV [...] SU on MonMar 14, 2025 11:57:02 AM EDTNormalRiverside Cheondoism HospitalUS SAPHENOUS VEIN MAPon 38-17-8470KH SAPHENOUS VEIN MAPPatient Info Name: Tristin Powell Age: 85 years : 1940 Gender: Male Exam Date: 03/14/2025 9:26 PM Patient Status: INPATIENT Site Location: [facility] Indications Z01.810 - Encounter for preprocedural cardiovascular examination Procedure Description 31301 Duplex examination using B-mode, color and spectral Doppler of extremity veins including responses to compression and other maneuvers; complete bilateral study. Stock Cutter: Cristian Ellis RVT, [facility] Staff Ordering Physician: Beena Barraza Conclusions [...] HEIN on MonMar 16, 2025 11:15:31 AM EDTNormalRiverside Cheondoism HospitalUS UE VEIN MAPon 71-76-0763MT UE VEIN MAPPatient Info Name: Tristin Powell Age: 85 years : 1940 Gender: Male Exam Date: 03/14/2025 9:20 PM Patient Status: INPATIENT Site Location: [facility] Indications Z01.810 - Encounter for preprocedural cardiovascular examination Procedure Description 66912 Duplex examination using B-mode, color and spectral Doppler of extremity veins including responses to compression and other maneuvers; complete bilateral study. Stock Cutter: Cristian Ellis RVT, [facility] Staff Ordering Physician: Beena Barraza Conclusions [...] 11:14 AM Dictated by: AARON HEIN on [place] Mar 16, 2025 11:14:40 AM EDT Transcribed by: AARON HEIN on [place] Mar 16, 2025 11:14:40 AM EDT Finalized by: AARON HEIN on [place] Mar 16, 2025 11:14:40 AM EDTNormalRiverside CheondoismPalisades Medical CenterBasic Metabolic Panelon 77-21-2291Hqcegnnwjv [facility] 66.NoFirstHealth Montgomery Memorial Hospital Physician GroupComment on above:Result Comment: PERFORMED BY: [facility] [address] [place] [address] PATHOLOGIST CONTRACT NEGOTIATOR MAXIM HERNANDEZ M.D.Performed By: #### CBC, BMP ####[facility] [place] [address] USAGFR/1.73 sq M.predicted MDRD (S/P/Bld) [Vol rate/Area]mL/min/{1.73_m2}NormalThe [facility] Physician GroupComment on above:Performed By: #### CBC, BMP ####[address] [address] USABasophils [#/volume] in Blood by Automated count Ordered By: Duke Hector on 66-95-4957Ekbqyrnxa (Bld) [#/Vol]0.0 10*3/uLNormal 0.0-0.2FUC Medical CenterComment on above:Result Comment: PERFORMED BY: [facility] [address] [place] [address] PATHOLOGIST CONTRACT NEGOTIATOR MAXIM HERNANDEZ M.D.Performed By: #### CBC, BMP ####[address] [address] USABasophils/100 leukocytes in Blood by Automated countOrdered By: Duke Hector on 59-95-3336Qjcmvvknz/100 WBC (Bld) 1.1 %Normal.Trinity Health SystemComment on above:Performed By: #### CBC, BMP ####[address] [address] USACalcium [Mass/volume] in Serum or PlasmaOrdered By: Duke Hector on 57-44-4540Sprxass [Mass/Vol]9.4 mg/dLNormal8.6-10.3FUC Medical CenterComment on above:Performed By: #### CBC, BMP ####[address] [address] USACarbon dioxide, total [Moles/volume] in Serum or PlasmaOrdered By: Duke Hector on 74-46-7183EE9 [Moles/Vol]26.4 mmol/OIfpdcp67.0-31.0Trinity Health SystemComment on above:Performed By: #### CBC, BMP ####[address] [address] USAChloride [Moles/volume] in Serum or PlasmaOrdered By: Duke Hector on 70-01-2820Lzwlveab [Moles/Vol]105 mmol/ABecwkk07-021 Trinity Health SystemComment on above:Performed By: #### CBC, BMP ####[place] [address] [place] [id number] [facility] Complete Blood Count Auto Diffon 07-29-4209Jelt Corpuscular HGB Conc34.7 g/dL Swmnom27.5-35.6The [facility] Physician [facility] State HospitalComment on above:Performed By: #### CBC, BMP ####[place] [address] USANRBC%0.3 /100{WBC}Normal0-0.5The [facility] Physician GroupComment on above: Performed By: #### CBC, BMP ####[place] [address] USAWhite Blood Count2.4 [CFU]/mLLow4.1-10.5The [facility] Physician [facility] State HospitalComment on above:Performed By: #### CBC, BMP ####[place] [address] [facility] Creatinine [Mass/volume] in Serum or PlasmaOrdered By: Duke Hector on 38-77-9854Omtnsoiiau [Mass/Vol]1.06 mg/dLNormal0.70-1.30Trinity Health SystemComment on above:Performed By: #### CBC, BMP ####[place] [address] USAECG 12 lead ECGon 13-93-4317PNM [address] [facility] [address] [place] [address] Electrocardiograph Report Signed Patient: Tristin Powell MR#: [id number] : 1940 Acct:[id number] Age/Sex: 85 / M ADM Date: 03/12/25 Loc: [place] Room: Type: [facility] Attending Dr: Cristian Beaver MD Ordering [...] QT Abnormal ECG Confirmed by Mell Jackson ([id number]) on 03/13/2025 4:30:37 PM Referred By: Electronically Signed By: Mell Jackson Transcribed By: MUS Signed By Mell Jackson MD [address] [place] [address] Physician GroupEosinophils [#/volume] in Blood by Automated countOrdered By: Duke Hector on 74-77-5005Qkixuovjpdn (Bld) [#/Vol] 0.1 10*3/uLNormal0.0-0.45Trinity Health SystemComment on above: Performed By: #### CBC, BMP ####[address] [address] USAEosinophils/100 leukocytes in Blood by Automated countOrdered By: Duke Hector on 25-29-3347Vjbsoycftjz/100 WBC (Bld)5.7 % Normal.Trinity Health SystemComment on above:Performed By: #### CBC, BMP ####[address] [address] [place] Erythrocyte distribution width [Ratio] by Automated countOrdered By: Duke Hector on 30-94-9986Tbctmvthuxi distribution width (RBC) [Ratio]14.7 %Normal 12.0-14.8Trinity Health SystemComment on above:Performed By: #### CBC, BMP ####[address] [address] USAErythrocytes [#/volume] in Blood by Automated countOrdered By: Duke Hector on 54-63-5549LPE (Bld) [#/Vol]4.29 10*6/uLNormal3.90-5.60Trinity Health SystemComment on above:Performed By: #### CBC, BMP ####[address] [address] USAGlucose [Mass/volume] in Serum or PlasmaOrdered By: Duke Hector on 64-74-8734Nidbahy [Mass/Vol]109 mg/eUFbsu30-664QzgaydeprTrinity Health SystemComment on above:ADA recommended reference rangeRandom Glucose Reference Range is dependent on time and content of last meal. Glucose of more than 200 mg/dL in a nonstressed, ambulatory subject supports the diagnosisof Diabetes Mellitus.Result Comment: Random Glucose Reference Range is dependent on time and content of last meal. Glucose of more than 200 mg/dL in a nonstressed, ambulatory subject supports the diagnosis of Diabetes Mellitus. ADA recommended reference rangePerformed By: #### CBC, BMP ####[place] [address] [place] [address] USAHematocrit [Volume Fraction] of Blood by Automated countOrdered By: Duke Hector on 03-12-2025 Hematocrit (Bld) [Volume fraction]38.6 %Low38.8-50.0Trinity Health SystemComment on above:Performed By: #### CBC, BMP ####[address] [address] USAHemoglobin [Mass/volume] in BloodOrdered By: Duke Hector on 73-23-9098Hhhtdallfn (Bld) [Mass/Vol]13.4 g/mXPpucer61.0-17.0Trinity Health SystemComment on above:Performed By: #### CBC, BMP ####[place] [address] USALeukocytes [#/volume] corrected for nucleated erythrocytes in Blood by Automated counOrdered By: Duke Hector on 95-96-8873UUN corrected for nucl RBC Auto (Bld) [#/Vol]2.4 10*3/uLLow4.1-10.5[facility] Leukocytes [#/volume] in Blood by Automated countOrdered By: Duke Hector on 13-83-7845QMP (Bld) [#/Vol]2.4 10*3/uLLow4.1-10.5FUC Medical CenterComment on above:Performed By: #### CBC, BMP ####[address] [address] USALymphocytes [#/volume] in Blood by Automated countOrdered By: Duke Hector on 60-97-4973Dcxhroawsyb (Bld) [#/Vol]0.5 10*3/uLLow1.00-4.8Tr[facility] Health SystemComment on above:Performed By: #### CBC, BMP ####[address] [address] USALymphocytes/100 leukocytes in Blood by Automated countOrdered By: Duke Hector on 55-83-4303Rkjvuxsydjq/100 WBC (Bld)22.3 % Normal.Trinity Health SystemComment on above:Performed By: #### CBC, BMP ####[address] [address] [facility] MCH [Entitic mass] by Automated countOrdered By: Duke Hector on 52-85-3496GYU (RBC) [Entitic mass]31.2 ryKqeprn14.5-35.2[facility] Comment on above:Performed By: #### CBC, BMP ####[address] [address] [facility] CITYHC Auto (RBC) [Mass/Vol]Ordered By: Duke Hector on 38-76-4987LDQY (RBC) [Mass/Vol]34.7 g/dL32.5-35.6FUC Medical CenterMCV [Entitic volume] by Automated countOrdered By: Duke Hector on 71-45-4277VAV (RBC) [Entitic vol]90.0 pDThksnq36.5-101 [facility] Health SystemComment on above:Performed By: #### CBC, BMP ####[address] [address] [place] Monocytes [#/volume] in Blood by Automated countOrdered By: Duke Hector on 67-22-3323Qwhmhssvw (Bld) [#/Vol]0.6 10*3/uLNormal0.0-0.8Tr[facility] Health SystemComment on above:Performed By: #### CBC, BMP ####[place] [address] USAMonocytes/100 leukocytes in Blood by Automated countOrdered By: Duke Hector on 03-12-2025 Monocytes/100 WBC (Bld)23.1 %Normal.Trinity Health SystemComment on above:Performed By: #### CBC, BMP ####[facility] [place] [address] USANeutrophils [#/volume] in Blood by Automated count Ordered By: Duke Hector on 95-56-3478Jsrwfhjvtmm (Bld) [#/Vol]1.2 10*3/uLLow 1.8-7.7FUC Medical CenterComment on above:Performed By: #### CBC, BMP ####[place] [address] [place] [address] [place] Neutrophils/100 leukocytes in Blood by Automated countOrdered By: Duke Hector on 18-60-2719Rnszkxhczso/100 WBC (Bld)47.8 %Normal.[facility] Health SystemComment on above:Performed By: #### CBC, BMP ####[place] [address] [place] [address] USANo Panel InformationOrdered By: Duke Hector on 70-92-4746Wvfmxfhsl GFR (CKD-EPI)> 60.0 mL/MinTrinity Health SystemPharmacy Creatinine Clearance (Chem66.99Trinity Health SystemNucleated erythrocytes [Presence] in Blood by Automated countOrdered By: Duke Hector on 90-41-0629Yilgdurlh RBC Auto Ql (Bld)0.3 /100{WBC}0-0.5FUC Medical CenterPlatelet mean volume [Entitic volume] in Blood by Automated countOrdered By: Duke Hector on 03-12-2025 Platelet mean volume (Bld) [Entitic vol]7.6 fLNormal6.6-10.1FUC Medical CenterComment on above:Performed By: #### CBC, BMP ####[place] [address] [place] [address] USAPlatelets [#/volume] in Blood by Automated countOrdered By: Duke Hector on 87-63-6696Kucwpocol (Bld) [#/Vol]166 10*3/pKIwvymg079-330BxvoxhyyjTrinity Health SystemComment on above:Performed By: #### CBC, BMP ####[address] [address] USAPotassium [Moles/volume] in Serum or PlasmaOrdered By: Duke Hector on 02-03-6570Igsmnmoxf [Moles/Vol]4.4 mmol/LNormal3.5-5.1 [facility] Health SystemComment on above:Performed By: #### CBC, BMP ####[address] [address] USASerum or plasma anion gap determinationOrdered By: Duke Hector on 77-42-1957Pcutj gap [Moles/Vol]11.0 mmol/LNormal6.0-15.0Tr[facility] Health SystemComment on above:Performed By: #### CBC, BMP ####[address] [address] USASodium [Moles/volume] in Serum or Plasma Ordered By: Duke Hector on 65-28-3770Gouehk [Moles/Vol]138 mmol/LNormal 136-145Trinity Health SystemComment on above:Performed By: #### CBC, BMP ####[address] [address] [place] Urea nitrogen [Mass/volume] in Serum or PlasmaOrdered By: Duke Hector on 87-64-6718Thyr nitrogen [Mass/Vol]22 mg/dLNormal-Trinity Health SystemComment on above:Performed By: #### CBC, BMP ####[address] [address] USACULTURE, URINE, ROUTINEon 84-59-4461XWYAUDS, URINE, ROUTINESEE NOTENormalQuest DiagnosticsComment on above:Result Comment: CULTURE, URINE, ROUTINE Micro Number: [id number] Test Status: Final Specimen Source: Urine Specimen Quality: Adequate Result: No GrowthPerformed By: #### 395 #### [facility] [address], [address] [place] [phone] [employer] Worker: Gene Liang MDPSA, TOTALon 78-58-8434VRD, TOTAL<0.04Normal< OR = 4.00Quest DiagnosticsComment on above:Result Comment: The total PSA value from this assay system is standardized against the WHO standard. The test result will be approximately 20% lower when compared to the equimolar-standardized total PSA ([place]). Comparison of serial PSA results should be interpreted with this fact in mind. This test was performed using the Siemens chemiluminescent method. Values obtained from different assay methods cannot be used interchangeably. PSA levels, regardless of value, should not be interpreted as absolute evidence of the presence or absence of disease.Performed By: #### 5363 #### [facility] [address], [address] [place] [address] [employer] Worker: Gene Liang MDUrinalysis macro (dipstick) panel (U)on 47-17-5009Ybzaeutls, UANegativeNegative - 4(70) +++ mg/dLNOMS HealthcareBlood, UANegativeNegative - 50 Donovan/mcLNOMS HealthcareClarity, UAClearNOMS Healthcare Color, UALight YellowNOMS HealthcareGlucose, UANegativeNegative - 2000(110) ++++ mg/dLNOMS HealthcareInterpretation and review of laboratory resultsNormalNOMS HealthcareKetones, UANegativeNegative - 160(16) ++++ mg/dLNOMS Healthcare Leukocytes, UANegativeNegative - 500+++ Adarsh/mcLNOMS HealthcareNitrite, UA NegativeNegative - PositiveNOMS HealthcarepH, UA7.55 - 9NOMS HealthcareProtein, UANegativeNegative - 2000(20) ++++ mg/dLNOMS HealthcareSpec Grav, UA11 - 1.03 NOMS HealthcareUrobilinogen, UA0.20.2 - 12 mg/dLNOMS HealthcareNOMS Healthcare Office Visiton 80-07-0737Xgdnhr-up [id number] Tristin Powell 1940 M Date Provider Department Center 12/18/2024 ELIEZER MIXON [facility] [place] [facility] Family History Problem Relation Age of Onset Coronary artery disease Other Hyperlipidemia Other Hypertension Other Family Status - Relation Status Age at Other Level of Service:99813 [place] OFFICE/OUTPATIENT ESTABLISHED LOW MDM 20 [facility]US ankle/arm indiceson 68-06-3539VJ ankle/arm indicesMarietta Memorial Hospital [facility] [address] [place], [place] [address] Ultrasound Report Signed Patient: Tristin Powell MR#: [id number] : 1940 Acct:[id number] Age/Sex: 84 / M ADM Date: 07/29/24 Loc: [facility] Room: Type: [facility] Attending Dr: Cristian Beaver MD Ordering [...] Cristian Beaver M.D.07/29/2024 11:33 AM Dictation Location: [id number] Tech: Viviana Stewart Transcribed By: VICENTE 07/29/24 1133 Dictated By: Cristian Beaver MD 07/29/24 1132 Signed By: 07/29/[address] [place] [address] Physician GroupUS arterial duplex LE LTon 95-72-8191HU arterial duplex LE [facility] [address] [place] [address] Ultrasound Report Signed Patient: Tristin Powell MR#: [id number] : 1940 Acct:[id number] Age/Sex: 84 / M ADM Date: 07/29/24 Loc: [facility] Room: Type: REG CLI Attending Dr: Cristian [...] Cristian Beaver M.D.07/29/2024 11:35 AM Dictation Location: [place] [address] Tech: Gaby Matthew Transcribed By: VICENTE 07/29/24 1135 Dictated By: Cristian Beaver MD 07/29/24 1133 Signed By: 07/29/24 1135[facility] Physician GroupUS carotid doppler BIon 39-62-8193VW carotid doppler [facility] Vascular [address] [place] [address] Ultrasound Report Signed Patient: Tristin Powell MR#: [id number] : 1940 Acct:[id number] Age/Sex: 84 / M ADM Date: 07/29/24 Loc: [facility] Room: Type: REG CLI Attending Dr: Cristian [...] 101 cm/s peak systolic and 11.8 cm/s end- diastolic proximally and 92.6 cm/s peak systolic and [...] Cristian Beaver M.D.07/29/2024 11:31 AM Dictation Location: [place] [address] Tech: Gaby Castro Transcribed By: VICENTE 07/29/24 1131 Dictated By: Cristian Beaver MD 07/29/24 1130 Signed By: 07/29/24 1131[facility] Physician GroupOffice Visiton 40-67-6667Wymnyd- up [id number] Tristin Powell 1940 M Date Provider Department Center 07/22/2024 ELIEZER MIXON [facility] [place] Family History Problem Relation Age of Onset Coronary artery disease Other Hyperlipidemia Other Hypertension Other Family Status - Relation Status Age at Other Level of Service:33068 [place] OFFICE/OUTPATIENT ESTABLISHED LOW MDM 20 [facility]36on 01-31-506135KO for patient to return my call.[facility]36on 48-90-590688Hmnlsu let him know his ECHO looked okay. Labs showed some mild elevation in inflammatory labs. Is he still experiencing chest pains? If so, we can try to start him on something short term to help. Thanks!NormalSelect Medical Specialty Hospital - Cincinnati NorthTelephoneon [id number] Tristin Powell 1940 M Date Provider Department Center 07/17/2024 RUSSEL ADAIR Family History Problem Relation Age of Onset Coronary artery disease Other Hyperlipidemia Other Hypertension Other Family Status - Relation Status Age at OtherNormalUniversPremier Health Miami Valley Hospital NorthALL BASIC METABOLIC PANELon 32-12-0589Uhcaw gap [Moles/Vol]15.1 mmol/LNOMS HealthcareCalcium [Mass/Vol]8.9 mg/dL8.5 - 10.1 mg/dLNOMS HealthcareChloride [Moles/Vol]108 mmol/LHigh98 - 107 mmol/LNOMS HealthcareCO2 [Moles/Vol]27.3 mmol/L21.0 - 32.0 mmol/LNOMS Healthcare Creatinine [Mass/Vol]1.32 mg/dLHigh0.70 - 1.30 mg/dLNOMS HealthcareGFR/1.73 sq M.predicted CKD-EPI (S/P/Bld) [Vol rate/Area]>60>=60 mL/min/1.73m 2NOMS HealthcareGlucose [Mass/Vol]94 mg/dL74 - 106 mg/dLNOMS HealthcareInterpretation and review of laboratory resultsAbnormalST. MARK'S HOSPITAL HealthcarePotassium [Moles/Vol]4.4 mmol/L3.5 - 5.1 mmol/LNOMS HealthcareSodium [Moles/Vol]146 mmol/RRacz047 - 145 mmol/LNBates County Memorial HospitalTB EGFR-NON AF TLGHIXGP00Yul>=60 mL/min/1.73m 2NOMS HealthcareUrea nitrogen [Mass/Vol]15 mg/dL7.0 - 18.0 mg/dLNOEllett Memorial HospitalUrea nitrogen/Creatinine [Mass ratio]11.4 mg/mgCrawley Memorial Hospital CBC WITH AUTO DIFFon 02-61-6510Kejsrebvwoe distribution width (RBC) [Ratio]13.9 %11.0 - 15.0 %NOMS HealthcareHematocrit (Bld) [Volume fraction]40.9 %Low42.0 - 54.0 %NOM HealthcareHemoglobin (Bld) [Mass/Vol]13.9 g/dLLow14.0 - 18.0 g/dLMadison Medical Center (RBC) [Entitic mass]31.1 pg25.9 - 34.0 pgSSM Saint Mary's Health CenterHC (RBC) [Mass/Vol]34 g/dL29.9 - 35.2 g/dLSSM Saint Mary's Health CenterV (RBC) [Entitic vol]91.5 fL80.0 - 94.0 fLWright Memorial HospitalPlatelet mean volume (Bld) [Entitic vol]9.5 fL9.5 - 13.5 fLEllis Fischel Cancer Center GCA938GAKHColumbia Regional Hospital RBC4.47LowEllis Fischel Cancer Center WBC3.3LowWright Memorial HospitalALL SED RATEon 40-41-6602OMA SED KUBU90CSWWZUTQFormerly [facility] Health CareMHPT DIFFERENTIALon 15-89-3714FFLKIUFGC ABS XNWWZM0SBVO HealthcareBASOPHILS PERCENT MANUAL0 %Low0.2 - 2.0 %NOMS HealthcareEosinophils (Bld) [#/Vol]0.13 10*3/uLNOMS HealthcareEOSINOPHILS PERCENT MANUAL4 %0.9 - 7.0 %NOMS HealthcareLymphocytes (Bld) [#/Vol]0.59 10*3/uLLowNOMS HealthcareLYMPHOCYTES PERCENT SUYRGK98 %Low20.5 - 60.0 %NOMS HealthcareMonocytes (Bld) [#/Vol]0.52 10*3/uLNOMS Healthcare MONOCYTES PERCENT TQTBPH57 %High1.7 - 12.0 %NOMS HealthcareSEGMENTED NEUT ABSOLUTE MANUAL2.04NOMS HealthcareSEGMENTED NEUTROPHILS % PKZSVQ7132.0 - 75.0 NOMS HealthcareNo Panel Informationon 87-17-9892Ipfgsonvywjudo and review of laboratory resultsAbnormalNOMS HealthcareCLINISYNCNOMS HealthcareHPon 07-10-2024 HPUT Cardiology Interval Pre-procedural H&P H&P reviewed. The patient has [...] were addressed and answered. Mabel Pino MD Director Stars - PGY6 [facility] Tristin Powell is a 84 y.o. year old male patient being seen for 6 mo follow up CAD, PAD, AAA, HTN, and HLD. Had lipid panel Sep, 2023. He is now seeing vascular surgery in [place], Dr. Beaver. Problem List Patient Active Problem List Diagnosis Abdominal pain Chest pain Aortic valve regurgitation Mitral valve regurgitation Avascular necrosis of bone of hip (CMS/HCC) Community acquired pneumonia of left lower lobe of lung Contusion Hematoma of arm, left, initial encounter Coronary artery disease involving coronary bypass graft of [place] heart without angina pectoris Coronary artery disease involving [place] coronary artery of [place] heart without angina pectoris Coronary atherosclerosis Critical [...] instent restenosis. [facility] (CHAVEZ to diagonal, SVG to [...] ECHO that could be (more content not included)...NormalUnUniversity Hospitals Beachwood Medical CenterNURSNOTEon 70-20-6241TGQIQGXRAhxof Cole called stating he had a heart cath yesterday and he is having chest pain when he takes a deep breath and when he leans back. Chest pain is not severe. He asked if this was normal. Tia Vallejo CNP was notified. Per iTa Vallejo CNP. Lab orders of CBC, BMP, ESR and CRP. Limited Echo for chest pain R/O pericarditis. Notified [facility] to have echo and labs done at [place]. Called Tristin Powell explaining need for echo and labs. Instructed to go to ER if chest pain worsens.NormalUnUniversity Hospitals Beachwood Medical CenterALL BASIC METABOLIC PANELon 66-58-5050Axxin gap [Moles/Vol]13.4 mmol/LNOMS HealthcareCalcium [Mass/Vol]9.8 mg/dL8.5 - 10.1 mg/dLNOAL HealthcareChloride [Moles/Vol]106 mmol/L 98 - 107 mmol/LNOMS HealthcareCO2 [Moles/Vol]27.4 mmol/L21.0 - 32.0 mmol/LNOMS HealthcareCreatinine [Mass/Vol]1.33 mg/dLHigh0.70 - 1.30 mg/dLNOAL Healthcare GFR/1.73 sq M.predicted CKD-EPI (S/P/Bld) [Vol rate/Area]>60>=60 mL/min/1.73m 2 NOMS HealthcareGlucose [Mass/Vol]110 mg/bSFuoj69 - 106 mg/dLNOAL Healthcare Interpretation and review of laboratory resultsAbnormalNOMS HealthcarePotassium [Moles/Vol]4.8 mmol/L3.5 - 5.1 mmol/LNOMS HealthcareSodium [Moles/Vol]142 mmol/L 136 - 145 mmol/LNOMS HealthcareTBH EGFR-NON AF [id number]>=60 mL/min/1.73m 2 NOMS HealthcareUrea nitrogen [Mass/Vol]16 mg/dL7.0 - 18.0 mg/dLNOMS Healthcare Urea nitrogen/Creatinine [Mass ratio]12 mg/mgNOMS HealthcareCLINISYNCNOMS HealthcareOrders Onlyon 38-24-0688Paoavl [id number] Tristin Powell 1940 Provider Department Center 07/02/2024 Rodney[facility] [place] HeartVAS Family History Problem Relation Age of Onset Coronary artery disease Other Hyperlipidemia Other Hypertension Other Family Status - Relation Status Age at OtherNormalUniversity of Texoma Medical CenterOrders Onlyon 10-04-5372Gszrke [id number] Tristin Powell 1940 Provider Department Center 06/11/2024 RUSSEL ADAIR Family History Problem Relation Age of Onset Coronary artery disease Other Hyperlipidemia Other Hypertension Other Family Status - Relation Status Age at OtherNormalUniversashtabula general hospital [facility]36on [id number] let him know that I discussed our plan with Dr. Juarez, recommend proceeding with cardiac cath given the bump in his heart enzymes recently. We want to make sure nothing significant has changed. This will also help with planning any vascular surgery in the future. Thanks![facility] HospitalTelephoneon [id number] Tristin Powell 1940 Provider Department Center 05/31/2024 RUSSEL ADAIR Family History Problem Relation Age of Onset Coronary artery disease Other Hyperlipidemia Other Hypertension Other Family Status - Relation Status Age at OtherNormalUniSuburban Community Hospital & Brentwood HospitalOffice Visiton 59-05-4448Yvdluc-up [id number] Tristin Powell 1940 Provider Department Center 05/28/2024 RUSSEL ADAIR Family History Problem Relation Age of Onset Coronary artery disease Other Hyperlipidemia Other Hypertension Other Family Status - Relation Status Age at Other Level of Service:74835 MA OFFICE/OUTPATIENT ESTABLISHED MOD MDM 30 [facility]ALL MAGNESIUMon 94-47-1546Wmkassuqu [Mass/Vol]2.1 mg/dL1.6 - 2.4 mg/dLNOMS HealthcareBasic Metab w/rfx MGon 16-62-6777Fkiwj gap [Moles/Vol]10 mmol/LNormal9-16Ohio[facility] Medical CenterComment on above:Performed By: #### TROPI, CBC, MG, BMPX #### [address] [place] [address] [facility] Att[facility]: Mary Astorga MD #### GLYHGB #### [address] [address] [facility] Attendant: Kale Orona MDBUN/CRE Nihwd78Ejbcsv4-38Zneuz [facility] Comment on above:Performed By: #### TROPI, CBC, MG, BMPX #### [address] [place] [address] [facility] Att[facility]: Mary Astorga MD #### GLYHGB #### [address] [id number] [facility] Attendant: Kale Orona, MDCalcium [Mass/Vol]9.3 mg/dLNormal8.6-10.4[facility] Medical CenterComment on above:Performed By: #### TROPI, CBC, MG, BMPX #### [address] [place] [address] [facility] Att[facility]: Mary Astorga MD #### GLYHGB #### [address] [id number] [facility] Attendant: Kale Orona MDChloride [Moles/Vol]106 mmol/RKvqpsp72-793ImfziOhiohealth Southeastern Medical CenterComment on above:Performed By: #### TROPI, CBC, MG, BMPX #### [address] [place] [address] [facility] Attendant: Mary Astorga MD #### GLYHGB #### [address] [place], [place] 2596[address] [facility] Attendant: OJ LanO2 [Moles/Vol]23 mmol/ZZyhpzz23-85QjitkOhiohealth Southeastern Medical CenterComment on above:Performed By: #### TROPI, CBC, MG, BMPX #### [address] [place] [address] [facility] Attendant: Mary Astorga MD #### GLYHGB #### [address] [place], [place] 9[address] [facility] Attendant: OJ Lanreatinine [Mass/Vol]1.1 mg/dLNormal0.70-1.20 [facility] CenterComment on above:Performed By: #### TROPI, CBC, MG, BMPX #### [address] [place] [address] [facility] Attendant: Mary Astorga MD #### GLYHGB #### [address] [place], [place] 7870908 [facility] Attendant: Kale Orona MDGFR/1.73 sq M.predicted among non-blacks MDRD (S/P/Bld) [Vol rate/Area]65 mL/min/{1.73_m2}Normal>60[facility] Comment on above:Result Comment: These results are not intended for [...] or following therapy that affects renal tubular secretion.Performed By: #### TROPI, CBC, MG, BMPX #### [address] [place] [address]383 [facility] Att[facility]: Mary Astorga MD #### GLYHGB #### [place] [id number] [facility] Attendant: Kale Orona MDGlucose [Mass/Vol]90 mg/jFLkbqwx25-61DntpuMercy Health St. Anne HospitalComment on above:Performed By: #### TROPI, CBC, MG, BMPX #### [address] [place] [id number] [facility] Attendant: Mary Astorga MD #### GLYHGB #### [place] [address] [facility] Attendant: DARIA Lanotassium [Moles/Vol]4.4 mmol/LNormal3.7-5.3 [facility] CenterComment on above:Performed By: #### TROPI, CBC, MG, BMPX #### [address] [place] [address]683 [facility] Attendant: Mary Astorga MD #### GLYHGB #### [place] [address] [facility] Attendant: JUANITA Lnaodium [Moles/Vol]139 mmol/CJrfitr832-000MievoOhiohealth Southeastern Medical CenterComment on above:Performed By: #### TROPI, CBC, MG, BMPX #### [address] [place] [address]683 [facility] Attendant: Mary Astorga MD #### GLYHGB #### [place] [address] [facility] Attendant: Kale Orona MDUrea nitrogen [Mass/Vol]18 mg/dLNormal8-23[facility] Medical CenterComment on above:Performed By: #### TROPI, CBC, MG, BMPX #### [address] [place] [id number] [facility] Attendant: Mary Astorga MD #### GLYHGB #### [address] [place], [place] 7532[address] [facility] Attendant: Kale Orona MDBrain Natri. Peptideon 25-38-6130Htevikxnyaw peptide B (Bld) [Mass/Vol]980 pg/mLHigh0-450MerSumma Health Akron Campus HospitalComment on above:Performed By: #### LIPR #### [address] [address] [facility] Attendant: OJ LanBCino 30-14-5665Nmfijlsiqyn distribution width (RBC) [Ratio]14.8 %High11.8-14.4MerThe Hospital of Central ConnecticutComment on above:Performed By: #### TROPI, CBC, MG, BMPX #### [address] [place] [id number] [facility] Attendant: Mary Astorga MD #### GLYHGB #### [address] [address] [facility] Attendant: Kale Orona MDHematocrit (Bld) [Volume fraction]38.8 %Low 40.7-50.3[facility] Institute Of LivingComment on above:Performed By: #### TROPI, CBC, MG, BMPX #### [address] [place] [id number] [facility] Attendant: Mary Astorga MD #### GLYHGB #### [address] [id number] [facility] Attendant: Kale Orona MDHemoglobin (Bld) [Mass/Vol]13.2 g/dLNormal 13.0-17.0MerThe Hospital of Central ConnecticutComment on above:Performed By: #### TROPI, CBC, MG, BMPX #### [address] [place] [id number] [facility] Attendant: Mary Astorga MD #### GLYHGB #### [place] [id number] [facility] Attendant: VINCENT LanCH (RBC) [Entitic mass]30.6 pzOfyseg32.2-33.5 [facility] CenterComment on above:Performed By: #### TROPI, CBC, MG, BMPX #### [address] [place] [id number] [facility] Attendant: Mary Astorga MD #### GLYHGB #### [place] [id number] [facility] Attendant: KATHY LanC (RBC) [Mass/Vol]34.0 g/oILuqomz67.4-34.8 [facility] CenterComment on above:Performed By: #### TROPI, CBC, MG, BMPX #### [address] [place] [id number] [facility] Attendant: Mary Astorga MD #### GLYHGB #### [place] [address] [facility] Attendant: VINCENT LanCV (RBC) [Entitic vol]89.8 uMNppxmd17.6-102.9 [facility] CenterComment on above:Performed By: #### TROPI, CBC, MG, BMPX #### [address] [place] [id number] [facility] Attendant: Mary Astorga MD #### GLYHGB #### [place] [phone] [facility] Attendant: Kale Orona MDNRBC Automated0.0 per 100 WBCNormal0.0[facility] HospitalComment on above:Performed By: #### TROPI, CBC, MG, BMPX #### [address] [place], [place] 575[address]83 [facility] Att[facility]: Mary Astorga MD #### GLYHGB #### [address] [address] [facility] Attendant: Anthony Lanteandrei mean volume (Bld) [Entitic vol]9.8 fL Normal8.1-13.5[facility] on above:Performed By: #### TROPI, CBC, MG, BMPX #### [address] [place], [place] [address]76683 [facility] Attendant: Mary Astorga MD #### GLYHGB #### [address] [address] [facility] Attendant: Cindy Lan (Bld) [#/Vol]153 10*3/jZXavadh610-703 [facility] Medical CenterCompontiac general hospital on above:Performed By: #### TROPI, CBC, MG, BMPX #### [address] [place], [place] 5436883 [facility] Attendant: Mary Astorga MD #### GLYHGB #### [address] [address] [facility] Attendant: JUAN CARLOS LanBC (Bld) [#/Vol]4.32 10*6/uLNormal4.21-5.77 [facility] on above:Performed By: #### TROPI, CBC, MG, BMPX #### [address] [place], [place] 5829[address] [facility] Attendant: Mary Astorga MD #### GLYHGB #### [address] [address] [facility] Attendant: Kale Orona MDWBC (Bld) [#/Vol]4.0 10*3/uLNormal3.5-11.3[facility] Institute Of LivingComment on above:Performed By: #### TROPI, CBC, MG, BMPX #### [facility] [address] [place] [address] [facility] Attendant: Mary Astorga MD #### GLYHGB #### [facility] [address] [place], [place] 7883[address] [facility] Attendant: Kale Orona [facility] TROPONIN Ion 42-53-6233Fblyxvavfnhrlu and review of laboratory resultsAbnoAdvanced Surgical HospitalPT TROPONIN, HIGH SENS31 ng/LHigh0 - 22 ng/LNOMS HealthcareComment on above:High Sensitivity Troponin values cannot be compared with other Troponin methodologies. [facility] BASIC METABOLIC PANEL REFLEX MGon 01-33-9067Usust gap [Moles/Vol]10 mmol/L9 - 16 mmol/LNOMS HealthcareCalcium [Mass/Vol]9.3 mg/dL8.6 - 10.4 mg/dLNOAL HealthcareChloride [Moles/Vol]106 mmol/L98 - 107 mmol/LNOMS HealthcareCO2 [Moles/Vol]23 mmol/L20 - 31 mmol/LNOMS HealthcareCreatinine [Mass/Vol]1.1 mg/dL 0.70 - 1.20 mg/dLNOAL HealthcareGlucose [Mass/Vol]90 mg/dL74 - 99 mg/dLNOPershing Memorial HospitalPT BUN/CRE [id number] - 20NOPershing Memorial HospitalPT EGFR65- PINFST. MARK'S HOSPITAL HealthcareComment on above: These results are not intended [...] therapy that affects renal tubular secretion. Potassium [Moles/Vol]4.4 mmol/L3.7 - 5.3 mmol/LNOMS HealthcareSodium [Moles/Vol] 139 mmol/L136 - 145 mmol/LNOMS HealthcareUrea nitrogen [Mass/Vol]18 mg/dL8 - 23 mg/dLNOAL HealthcareHemoglobin A1Con 65-72-5976Jcrurtl [Mass/Vol]117 mg/dLNormal [facility] Medical CenterComment on above:Result Comment: The ADA and AACC recommend providing the estimated average glucose result to permit better patient understanding of their HBA1c result.Performed By: #### TROPI, CBC, MG, BMPX #### [address] [place] [address] [facility] Attendant: Mary Astorga MD #### GLYHGB #### [address] [address] [facility] Attendant: Kale Orona MDHbA1c (Bld) [Mass fraction]5.7 %Normal4.0-6.0 [facility] Medical CenterComment on above:Performed By: #### TROPI, CBC, MG, BMPX #### [address] [place] [address] [facility] Attendant: Mary Astorga MD #### GLYHGB #### [address] [address] [facility] Attendant: Kale Orona MDLipid Profileon 33-42-0243Idknvdncdjq [Mass/Vol] 131 mg/dLNormal0-199Ohio[facility] Medical CenterComment on above:Result Comment: Cholesterol Guidelines: <200 Desirable 200-240 Borderline >240 UndesirablePerformed By: #### LIPR #### [address] [address] [facility] Attendant: Kale Orona MDCholesterol in HDL [Mass/Vol]41 mg/dLNormal>40 [facility] CenterComment on above:Result Comment: HDL Guidelines: <40 Undesirable 40-59 Borderline >59 DesirablePerformed By: #### LIPR #### [address] [address] [facility] Attendant: JO Lanholesterol in LDL [Mass/Vol]73 mg/dLNormal0-100 [facility] Medical CenterComment on above:Result Comment: LDL Guidelines: <100 Desirable 100-129 Near to/above Desirable 130-159 Borderline >159 Undesirable Direct (measured) LDL and calculated LDL are not interchangeable tests.Performed By: #### LIPR #### [address] [address] [facility] Attendant: OJ Lanholesterol in VLDL [Mass/Vol]17 mg/dLNormal [facility] Medical CenterComment on above:Performed By: #### LIPR #### [address] [address] [facility] Attendant: Bebeto Lanstjohann.total/Cholesterol in HDL [Mass ratio]3.0 {ratio}NormalOhiohealth Southeastern Medical CenterComment on above:Performed By: #### LIPR #### [address] [address] [facility] Attendant: Kale Orona MDTriglyceride [Mass/Vol]85 mg/dLNormal<150Ohio[facility]heastern Medical CenterComment on above:Result Comment: Triglyceride Guidelines: <150 Desirable 150-199 Borderline 200-499 High >499 Very high Based on AHA Guidelines for fasting triglyceride, May 2012.Performed By: #### LIPR #### [address] [address] [facility] Attendant: Julio Cesar Langnesiumon 45-95-9271Fnsjirahc [Mass/Vol]2.1 mg/dLNormal1.6-2.4[facility] Medical CenterComment on above:Performed By: #### TROPI, CBC, MG, BMPX #### [facility] [address] [place] [address] [facility] Attendant: Mary Astorga MD #### GLYHGB #### [address] [address] [facility] Attendant: Kale Orona MDNo Panel Informationon 71-55-9766Xukumzwx Ordering Provider: RAFAELA Ontiveros CNP HOMANCExcelsior Springs Medical CenterTroponinon 22-56-0209Mdkujwtb, High Sens28 ng/LHbeckley appalachian [facility]0-[facility] Medical CenterComment on above:Result Comment: High Sensitivity Troponin values cannot be compared with other Troponin methodologies.Performed By: #### LIPR #### [address] [place], [place] 8080[address] [facility] Attendant: Mayur Lan, High Sens31 ng/[facility]0-[facility] Medical CenterComment on above:Result Comment: High Sensitivity Troponin values cannot be compared with other Troponin methodologies.Performed By: #### TROPI, CBC, MG, BMPX #### [address] [place] [address] [facility] Attendant: Mary Astorga MD #### GLYHGB #### [address] [place], [place] 2483[address] [facility] Attendant: KALPESH Lan PROTIME/INRon 51-68-1900Hpnqmrqpmkwzhg and review of laboratory resultsBayhealth Hospital, Sussex CampusPT INR1.2NBates County Memorial Hospital Comment on above: Therapeutic Range: Moderate Anticoagulant Intensity: INR = 2.0-3.0 High Anticoagulant Intensity: INR = 2.5-3.5 MHPT PROTHROMBIN TIME14.8HMayo Clinic Health System– Red CedarOriginal Ordering Provider: RAFAELA Ontiveros CNP [facility] CenterBasic Metab w/rfx MGon 46-87-7624Vcyhu gap [Moles/Vol]11 mmol/LNormalOhiohealth Southeastern Medical CenterComment on above:Performed By: #### BMPX, PT, CBC #### [address] [place] [address] [facility] Attendant: Mary Astorga MDBUJose/CRE Sfwts33Qfnxla6-42Nx[address] Comment on above:Performed By: #### BMPX, PT, CBC #### [address] [place] [address] [facility] Attendant: OJ Markalcium [Mass/Vol]9.5 mg/dLNormal8.6-10.4[facility] Medical CenterComment on above:Performed By: #### BMPX, PT, CBC #### [facility] [address] [place], [place] [address] [facility] Attendant: OJ Markhloride [Moles/Vol]105 mmol/IJgvohs57-694NreozOhiohealth Southeastern Medical CenterComment on above:Performed By: #### BMPX, PT, CBC #### [facility] [address] [place], [place] [address]30683 [facility] Attendant: Mary Astorga MDCO2 [Moles/Vol]23 mmol/EMftlno36-65OzrwvOhiohealth Southeastern Medical CenterComment on above:Performed By: #### BMPX, PT, CBC #### [facility] [address] [place], [facility] Attendant: OJ Markreatinine [Mass/Vol]1.0 mg/dLNormal0.70-1.20[facility] Medical CenterComment on above:Performed By: #### BMPX, PT, CBC #### [address] [place] [address] [facility] Attendant: Mary Astorga MDGFR/1.73 sq M.predicted among non-blacks MDRD (S/P/Bld) [Vol rate/Area]73 mL/min/{1.73_m2}Normal>60[facility] Comment on above:Result Comment: These results are not intended for [...] or following therapy that affects renal tubular secretion.Performed By: #### BMPX, PT, CBC #### [address] [place], [place] 46[address]83 [facility] Attendant: Mary Astorga MDGlucose [Mass/Vol]96 mg/tTJhaeas27-56Scqtp [facility] HospitalComment on above:Performed By: #### BMPX, PT, CBC #### [address] [place], [place] 6294383 [facility] Attendant: DARIA Markotassium [Moles/Vol]4.2 mmol/LNormal3.7-5.3[facility] HospitalComment on above:Performed By: #### BMPX, PT, CBC #### [address] [place], [place] [address]101683 [facility] Attendant: JUANITA Markodium [Moles/Vol]139 mmol/GHrders267-538Axwbs [facility] HospitalComment on above:Performed By: #### BMPX, PT, CBC #### [address] [place], [place] 1144283 [facility] Attendant: Mary Astorga MDUrea nitrogen [Mass/Vol]16 mg/dLNormal8-23MerSumma Health Akron Campus HospitalComment on above:Performed By: #### BMPX, PT, CBC #### [address] [place], [place] [address]507[address] [facility] Attendant: Jace Mark 11-21-4765Iduvzgavksz distribution width (RBC) [Ratio]14.7 %High11.8-14.4Mercy [facility] HospitalComment on above:Performed By: #### LIPR #### [address] [place] [address] [facility] Attendant: Kale Orona MDHematocrit (Bld) [Volume fraction]40.3 %Low 40.7-50.3Mer[facility] HospitalComment on above:Performed By: #### LIPR #### [address] [place] [address] [facility] Attendant: Kale Orona MDHemoglobin (Bld) [Mass/Vol]13.9 g/dLNormal 13.0-17.0[facility] Medical CenterComment on above:Performed By: #### LIPR #### [address] [address] [facility] Attendant: VINCENT LanCH (RBC) [Entitic mass]31.0 ggBozlio39.2-33.5 [facility] HospitalComment on above:Performed By: #### LIPR #### [place] [address] [facility] Attendant: VINCENT LanCHC (RBC) [Mass/Vol]34.5 g/tXNurmng46.4-34.8 [facility] HospitalComment on above:Performed By: #### LIPR #### [place] [address] [facility] Attendant: VINCENT LanCV (RBC) [Entitic vol]89.8 eCUextbx82.6-102.9 [facility] Medical CenterComment on above:Performed By: #### LIPR #### [place] [address] [facility] Attendant: Kale Orona MDNRBC Automated0.0 per 100 WBCNormal0.0[facility] Medical CenterComment on above:Performed By: #### LIPR #### [place] [address] [facility] Attendant: DARIA Lanlatelet mean volume (Bld) [Entitic vol]9.8 fL Normal8.1-13.5[facility] Medical CenterComment on above:Performed By: #### LIPR #### [place] [address] [facility] Attendant: DARIA Lanlatelets (Bld) [#/Vol]154 10*3/fXHjqpvu360-239 [facility] CenterComment on above:Performed By: #### LIPR #### [address] [place] [address] [facility] Attendant: TIA Lan ([facility]) [#/Vol]4.49 10*6/uLNormal4.21-5.77 [facility] CenterComment on above:Performed By: #### LIPR #### [address] [address] [facility] Attendant: JUSTIN Lan ([facility]) [#/Vol]4.0 10*3/uLNormal3.5-11.3MTrinity Health System East Campus HospitalComment on above:Performed By: #### LIPR #### [address] [address] [facility] Attendant: Pablo Lan 76-10-1284HQB Coag (PPP) [Relative time]1.2 {INR}NormalOhiohealth Southeastern Medical CenterComment on above:Result Comment: Therapeutic Range: Moderate Anticoagulant Intensity: INR = 2.0-3.0 High Anticoagulant Intensity: INR = 2.5-3.5Performed By: #### BMPX, PT, CBC #### [address] [place] [address] [facility] Attendant: OLIVE Mark Coag (PPP) [Time]14.8 sHigh11.7-14.1MParkview Health on above:Performed By: #### BMPX, PT, CBC #### [address] [place] [address] [facility] Attendant: Andrew Mark 73-54-5095Rgnukglu, Sens26 ng/L High0-22[facility] on above:Result Comment: High Sensitivity Troponin values cannot be compared with other Troponin methodologies.Performed By: #### TROPI #### [facility] [address] [place], [place] [address] [facility] Attendant: Mary Astorga MDBrain Natri. Peptideon 33-88-1735Agxwtqaxjhg peptide B (Bld) [Mass/Vol]729 pg/mLHigh0-450MerSumma Health Akron Campus HospitalComment on above:Performed By: #### LIPR #### [address] [address] [facility] Attendant: TOM Lan with Diffon 88-04-4763Gef. Basophil0.03 k/uL Normal0.00-0.20[facility] HospitalComment on above:Performed By: #### LIPR #### [address] [address] [facility] Attendant: MDAbs. RikyImm.Granulocyte<0.60Zutzws4.00-0.30MerSumma Health Akron Campus HospitalComment on above:Performed By: #### LIPR #### [address] [address] [facility] Attendant: Anup Lan.Neutrophil (Seg)2.22 k/uLNormal1.50-8.10 [facility] HospitalComment on above:Performed By: #### LIPR #### [address] [address] [facility] Attendant: Kale Orona MDBasophils/100 WBC (Bld)1 %Normal0-2[facility] HospitalComment on above:Performed By: #### LIPR #### [address] [address] [facility] Attendant: Kale Orona MDEosinophils (Bld) [#/Vol]0.11 10*3/uLNormal 0.00-0.44MerSumma Health Akron Campus HospitalComment on above:Performed By: #### LIPR #### [address] [address] [facility] Attendant: Kale Orona MDEosinophils/100 WBC (Bld)3 %Normal1-4[facility] HospitalComment on above:Performed By: #### LIPR #### [address] [address] [facility] Attendant: Kale Orona MDErythrocyte distribution width (RBC) [Ratio]14.7 %High11.8-14.4[facility] HospitalComment on above:Performed By: #### LIPR #### [place] [address] [facility] Attendant: Kale Orona MDHematocrit (Bld) [Volume fraction]38.8 %Low 40.7-50.3[facility] HospitalComment on above:Performed By: #### LIPR #### [place] [address] [facility] Attendant: Kale Orona MDHemoglobin (Bld) [Mass/Vol]13.3 g/dLNormal 13.0-17.0[facility] Hospitalcy [facility] HospitalComment on above:Performed By: #### LIPR #### [place] [address] [facility] Attendant: Kale Orona MDImmature granulocytes/100 WBC (Bld)1 %Dmkb2Ryewf [facility] HospitalComment on above:Performed By: #### LIPR #### [place] [address] [facility] Attendant: Kale Orona MDLymphocytes (Bld) [#/Vol]0.61 10*3/uLLow 1.10-3.70[facility] HospitalComment on above:Performed By: #### LIPR #### [place] [address] [facility] Attendant: Ramon Lanmphocytes/100 WBC (Bld)17 %Xtt97-51Rdclw [facility] HospitalComment on above:Performed By: #### LIPR #### [facility] [employer] [address] [place] [address] [facility] Attendant: VINCENT LanCH (RBC) [Entitic mass]31.0 djWjchid48.2-33.5 [facility] HospitalComment on above:Performed By: #### LIPR #### [facility] [employer] [address] [place] [address] [facility] Attendant: VINCENT LanCHC (RBC) [Mass/Vol]34.3 g/sNYzucwb86.4-34.8 [facility] HospitalComment on above:Performed By: #### LIPR #### [address] [address] [facility] Attendant: VINCENT LanCV (RBC) [Entitic vol]90.4 gYGdlvkr23.6-102.9 [facility] HospitalComment on above:Performed By: #### LIPR #### [address] [address] [facility] Attendant: VINCENT Lanonocytes (Bld) [#/Vol]0.59 10*3/uLNormal 0.10-1.20[facility] HospitalComment on above:Performed By: #### LIPR #### [address] [address] [facility] Attendant: VINCENT Lanonocytes/100 WBC (Bld)17 %High3-12[facility] HospitalComment on above:Performed By: #### LIPR #### [facility] [employer] [address] [place] [address] [facility] Attendant: Aleyda Lanophil (Seg)61 %Hmnzso21-77Sfxzq [facility] HospitalComment on above:Performed By: #### LIPR #### [facility] [employer] [address] [place] [address] [facility] Attendant: Kale Orona MDNRBC Automated0.0 per 100 WBCNormal0.0[facility] CenterComment on above:Performed By: #### LIPR #### [facility] [employer] [address] [place] [address] [facility] Attendant: DARIA Lanlatelet mean volume (Bld) [Entitic vol]9.3 fL Normal8.1-13.5[facility] Medical CenterComment on above:Performed By: #### LIPR #### [facility] [address] [place] [address] [facility] Attendant: DARIA Lanlatelets (Bld) [#/Vol]153 10*3/cGUsgzal597-708 [facility] CenterComment on above:Performed By: #### LIPR #### [address] [address] [facility] Attendant: Kale Orona MDRBC (Bld) [#/Vol]4.29 10*6/uLNormal4.21-5.77 [facility] CenterComment on above:Performed By: #### LIPR #### [facility] [employer] [address] [place] [address] [facility] Attendant: Kale Orona MDWBC (Bld) [#/Vol]3.6 10*3/uLNormal3.5-11.3MMercy Health St. Anne HospitalComment on above:Performed By: #### LIPR #### [facility] [employer] [address] [place] [address] [facility] Attendant: Kale Orona MDCTA CHEST ABDOMEN PELVIS W CONTRASTon 05-12-2024 CTA CHEST ABDOMEN PELVIS W CONTRASTEXAMINATION: CTA OF THE CHEST, ABDOMEN AND PELVIS [...] normal. Pelvis: Brachytherapy seeds throughout the prostate. Peritoneum/Retroperitoneum: No free air, free fluid, organized fluid [...] Signed by: Randall Almaraz MD 05/12/24 Final resultNormalMercy Veterans Administration Medical Center Metabolic Profon 84-35-3595Wmbxhqb [Mass/Vol]3.8 g/dLNormal3.5-5.2MTrinity Health System [facility] Campus HospitalComment on above:Performed By: #### LIPR #### [facility] [address] [place] [address] [facility] Attendant: Kale Orona MDAlbumin/Glob Ratio1.3Xeqhya7.0-2.5[facility] HospitalComment on above:Performed By: #### LIPR #### [address] [address] [facility] Attendant: Kale Orona MDAlkaline Phos92 U/JTqambz35-807Smeux [facility] HospitalComment on above:Performed By: #### LIPR #### [address] [address] [facility] Attendant: Kale Orona MDALT [Catalytic activity/Vol]15 U/YTayxwb04-86 [facility] HospitalComment on above:Performed By: #### LIPR #### [address] [address] [facility] Attendant: Kale Orona MDAnion gap [Moles/Vol]11 mmol/LNormal9-16[facility] HospitalComment on above:Performed By: #### LIPR #### [facility] [employer] [address] [place] [address] [facility] Attendant: Kale Orona MDAST [Catalytic activity/Vol]24 U/KYuenyj34-14 [facility] HospitalComment on above:Performed By: #### LIPR #### [facility] [employer] [address] [place] [address] [facility] Attendant: Kale Orona MDBilirubin [Mass/Vol]0.6 mg/dLNormal0.00-1.20 [facility] HospitalComment on above:Performed By: #### LIPR #### [facility] [employer] [address] [place] [address] [facility] Attendant: Kale Orona MDBUN/CRE Cfujx68Bepqgc2-23Fuvvu [facility] Comment on above:Performed By: #### LIPR #### [facility] Hospital[facility] [place] [address] [facility] Attendant: OJ Lanalcium [Mass/Vol]9.2 mg/dLNormal8.6-10.4[facility] Medical CenterComment on above:Performed By: #### LIPR #### [place] [address] [facility] Attendant: Kale Orona MDChloride [Moles/Vol]106 mmol/EPudmtd91-169PtcfyOhiohealth Southeastern Medical CenterComment on above:Performed By: #### LIPR #### [facility] [employer] [address] [place] [address] [facility] Attendant: Kale Orona MDCO2 [Moles/Vol]22 mmol/TWhntfy23-14EegxfOhiohealth Southeastern Medical CenterComment on above:Performed By: #### LIPR #### [facility] [employer] [address] [place] [address] [facility] Attendant: OJ Lanreatinine [Mass/Vol]1.1 mg/dLNormal0.70-1.20 [facility] CenterComment on above:Performed By: #### LIPR #### [address] [address] [facility] Attendant: Kale Orona MDGFR/1.73 sq M.predicted among non-blacks MDRD (S/P/Bld) [Vol rate/Area]69 mL/min/{1.73_m2}Normal>60[facility] Comment on above:Result Comment: These results are not intended for [...] or following therapy that affects renal tubular secretion.Performed By: #### LIPR #### [facility] [employer] [address] [place] [address] [facility] Attendant: Kale Orona MDGlucose [Mass/Vol]127 mg/xWXvaf55-17Jqhvo [facility] HospitalComment on above:Performed By: #### LIPR #### [facility] [employer] [address] [place] [address] [facility] Attendant: Kale Orona, MDPotassium [Moles/Vol]4.6 mmol/LNormal3.7-5.3 [facility] HospitalComment on above:Performed By: #### LIPR #### [facility] [employer] [address] [place] [address] [facility] Attendant: Kale Orona MDProtein [Mass/Vol]6.3 g/dLLow6.6-8.7[facility] HospitalComment on above:Performed By: #### LIPR #### [address] [address] [facility] Attendant: Kale Orona MDSodium [Moles/Vol]139 mmol/IQwwiav239-818Btork [facility] HospitalComment on above:Performed By: #### LIPR #### [facility] [employer] [address] [place] [address] [facility] Attendant: Kale Orona MDUrea nitrogen [Mass/Vol]19 mg/dLNormal8-23[facility] HospitalComment on above:Performed By: #### LIPR #### [facility] [employer] [address] [place] [address] [facility] Attendant: Kale Orona MDTroponinon 57-46-5089Vfdvddfd, High Sens25 ng/L High0-22[facility] Medical CenterComment on above:Result Comment: High Sensitivity Troponin values cannot be compared with other Troponin methodologies.Performed By: #### LIPR #### [facility] [employer] [address] [place] [address] [facility] Attendant: Mayur Lan, High Sens26 ng/LHigh0-22[facility] Medical CenterComment on above:Result Comment: High Sensitivity Troponin values cannot be compared with other Troponin methodologies.Performed By: #### LIPR #### [employer] [address] [place] [address] [facility] Attendant: ADRIAN Lan CHEST PORTABLEon 68-69-5354GL CHEST PORTABLE EXAMINATION: ONE XRAY VIEW OF [...] Signed by: Elyssa Pino MD 05/12/24 Final resultNormalOhiohealth Southeastern Medical CenterOffice Visiton 03-44-3681Kseugm-up visit [id number] Tristin Powell 1940 M Date Provider Department Center 04/24/2024 RUSSEL ADAIR [facility] Family History Problem Relation Age of Onset Coronary artery disease Other Hyperlipidemia Other Hypertension Other Family Status - Relation Status Age at Other Level of Service:58907 [place] OFFICE/OUTPATIENT ESTABLISHED MOD [facility] 30 [facility] Centercreenson 14-17-1444Xdqfndg [id number]#1.00TIFFUniversity Hospitals TriPoint Medical CenterPatient Educationon 80-03-7357Kbwjrus EducationOncology Prostate Cancer The prostate is a small [...] from the prostate and checked under a microscope(prostate biopsy). ? An imaging test called transrectal [...] under a microscope. This is called the Brooklyn score and the total score can range from 6?10, indicating how likely it is that the cancer will spread (metastasize) to other parts of the body. The higher the score, the greater thelikelihood that the cancer will spread. ? Aleksandr 6 or lower: This indicates that the cancer cells look similar to normal prostate cells (well differentiated). ? Brooklyn 7: This indicates that the cancer cells look somewhat similar to normal prostate cells (moderately differentiated). ? Brooklyn 8, 9, or 10: This indicates that [...] seeds, wires, or tubes that are implanted intothe prostate gland. Like external be (more content not included)...[facility] Medical CenterProvider Letteron 12-26-2023 Provider Letter FLASH LOVELACE, [address] [place] [address] Re: TRISTIN POWELL Date of : [address] ALBANIA DIAZ, TRISTIN ALEMAN was evaluated at [facility] 12/26/2023 13:00:00 As this patient has [...] Thanks! Provider Signature: Brenna Mosquera PA-C Physician Epic Kaleidoscope Analyst [facility] [address] [place] [address] [facility] CenterUrology Office/Clinic Note on 11-24-0016Vuytghi Office/Clinic NoteChief Complaint 1yr PSA HPI Staff 1yr PSA [...] E&M of Est. Patient Low 20-29 Min 32830 Urnls Dip Stick Auto w/o Microscopy POC 00665 2. BPH with urinary obstruction (N40.1: Benign prostatic hyperplasia with lower urinary tract symptoms) IPSS 7 (5) QOL 1 Pt is currently taking no bladder/prostate medication and is highly satisfied with overall symptom control. No indication for treatment at this time. Continue to monitor. Ordered: Complex E&M Add on G2211 E&M of Est. Patient Low 20-29 Min 01859 3. Erectile dysfunction (N52.9: Male erectile dysfunction, unspecified) last ov: pt requesting sildenafil 100mg. was on it previously through another provider and worked well. 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 advised him to contact his application integration specialist and if they clear him then call us and I will prescribe it. today: pt never called after last ov. no concerns reported today. does not wish to pursue Sildenafil at this time. Ordered: Complex E&M Add on G2211 E&M of Est. Patient Low 20-29 Min 13633 Other obstructive and reflux uropathy (N13.8: Other obstructive and reflux uropathy) Offered continued scheduled follow up with our clinic vs following up PRN. Pt prefers the latter. We will ensure PCP continues to order annual PSA. Letter sent. Follow-up With When Contact Information JAY CARRANZA, BRENNA Bazan, URL Only if needed [address] [place] [address] Business (1) Additional Instructions: Patient [...] influenza virus vaccine, i (more content not included)...NormalSt. Anthony'S HospitalComment on above:Result Comment: Electronically Signed By: BRENNA MOSQUERA PA-C\.br\Date and Time Signed: 12/25/2412:33 EDTLab Reportson 49-41-1142Uvn [id number]#1.00TIFFNormal St. Anthony'S HospitalAlanine aminotransferase [Enzymatic activity/volume] in Serum or PlasmaOrdered By: Eliezer Juarez on 22-65-6739GHG [Catalytic activity/Vol]15 U/L7-52[facility] Health SystemAlbumin [Mass/volume] in Serum or Plasma by Bromocresol green (BCG) dye binding methoOrdered By: Eliezer Juarez on 60-06-0903Amaojbq BCG dye [Mass/Vol]4.0 g/dL3.5-5.7FUC Medical CenterAlkaline phosphatase [Enzymatic activity/volume] in Serum or PlasmaOrdered By: Eliezer Juarez on 86-71-7548HXO [Catalytic activity/Vol] 72 U/W65-109SnszioyvqTrinity Health SystemAspartate aminotransferase [Enzymatic activity/volume] in Serum or PlasmaOrdered By: Eliezer Juarez on 31-13-0078XBJ [Catalytic activity/Vol]21 U/W77-55NtduxujusTrinity Health SystemBasophils Auto (Bld) [#/Vol]Ordered By: Eliezer Juarez on 10-17-2023 Basophils (Bld) [#/Vol]0.0 10*3/uL0.0-0.2[facility] Basophils/100 WBC Auto (Bld)Ordered By: Eliezer Juarez on 10-17-2023 Basophils/100 WBC (Bld)0.7 %.Trinity Health SystemBilirubin.total [Mass/volume] in Serum or PlasmaOrdered By: Eliezer Juarez on 10-17-2023 Bilirubin [Mass/Vol]0.7 mg/dL0.3-1.0[facility] Health SystemCalcium [Mass/volume] in Serum or PlasmaOrdered By: Eliezer Juarez on 10-17-2023 Calcium [Mass/Vol]9.4 mg/dL8.6-10.3FUC Medical CenterCarbon dioxide, total [Moles/volume] in Serum or PlasmaOrdered By: Eliezer Juarez on 34-37-8581XA5 [Moles/Vol]24.6 mmol/L21.0-31.0[facility] Chloride [Moles/volume] in Serum or PlasmaOrdered By: Eliezer Juarez on 59-58-5902Sxelkfax [Moles/Vol]108 mmol/J63-429AiwsijhdrTrinity Health System Cholesterol [Mass/volume] in Serum or PlasmaOrdered By: Eliezer Juarez on 13-56-0235Iohbnhvapdk [Mass/Vol]142 mg/hZ748-396CnvwgvhihTrinity Health SystemComment on above:Chol less than 200 mg/dl low riskChol 201-239 mg/dl borderline riskChol 240 mg/dl and greater high riskCholesterol in LDL Calc [Mass/Vol]Ordered By: Eliezer Juarez on 04-86-5572Ojpvfmjgdgi in LDL [Mass/Vol]79 mg/dL0-100Tr[facility] Health SystemComment on above:LDL ATP III CLASSIFICATIONLDL less than 100 mg/dL OptimalLDL 100-129 mg/dL Near or above rjgyufdAZK218-609 mg/dL Borderline highLDL 160-189 mg/dL HighLDL greater than 189 mg/dL Very highCholesterol in VLDL Calc [Mass/Vol]Ordered By: Eliezer Juarez on 46-83-4777Divllsjlafh in VLDL [Mass/Vol]21 mg/dLTrinity Health SystemCreatinine [Mass/volume] in Serum or PlasmaOrdered By: Eliezer Juarez on 70-11-2540Uadrcwjkib [Mass/Vol]1.01 mg/dL0.70-1.30[facility] Health SystemEosinophils Auto (Bld) [#/Vol]Ordered By: Eliezer Juarez on 08-25-9905Xtcvaajkdsx (Bld) [#/Vol]0.1 10*3/uL0.0-0.45Tr[facility] Health SystemEosinophils/100 WBC Auto (Bld)Ordered By: Eliezer Juarez on 06-05-3719Clpuneusurn/100 WBC (Bld)3.4 %.[facility] Health SystemErythrocyte distribution width Auto (RBC) [Ratio]Ordered By: Eliezer Juarez on 61-02-6976Mycagxysmzz distribution width (RBC) [Ratio]14.4 % 12.0-14.8Tr[facility] Health SystemGlobulin Calc (S) [Mass/Vol]Ordered By: Eliezer Juarez on 86-51-2231Rtwrisik (S) [Mass/Vol]2.6 g/dLTrinity Health SystemGlucose [Mass/volume] in Serum or PlasmaOrdered By: Eliezer Juarez on 85-94-6591Zpygubv [Mass/Vol]82 mg/wY48-208StnmidtzvTrinity Health SystemComment on above:ADA recommended reference rangeRandom Glucose Reference Range is dependent on time and content of last meal. Glucose of more than 200 mg/dL in a nonstressed, ambulatory subject supports the diagnosisof Diabetes Mellitus.Hematocrit Auto (Bld) [Volume fraction]Ordered By: Eliezer Juarez on 81-40-5478Knwqhfygfm (Bld) [Volume fraction]39.3 %38.8-50.0 [facility] Health SystemHemoglobin [Mass/volume] in BloodOrdered By: Eliezer Juarez on 78-83-0354Nhyfekpttx (Bld) [Mass/Vol]13.5 g/dL13.0-17.0 [facility] Health SystemLeukocytes [#/volume] corrected for nucleated erythrocytes in Blood by Automated counOrdered By: Eliezer Juarez on 04-55-7556QZR corrected for nucl RBC Auto (Bld) [#/Vol]3.5 10*3/uL4.1-10.5 [facility] Health SystemLymphocytes Auto (Bld) [#/Vol]Ordered By: Eliezer Juarez on 10-22-5937Jrwipidmfkd (Bld) [#/Vol]0.8 10*3/uL1.00-4.8 [facility] Health SystemLymphocytes/100 WBC Auto (Bld)Ordered By: Eliezer Juarez on 07-61-3383Snkzomfrikk/100 WBC (Bld)22.4 %.[facility] HospitalH Auto (RBC) [Entitic mass]Ordered By: Eliezer Juarez on 18-68-8842XMJ (RBC) [Entitic mass]30.9 pg27.5-35.2FUC Medical CenterMCHC Auto (RBC) [Mass/Vol]Ordered By: Eliezer Juarez on 59-59-7356UHME (RBC) [Mass/Vol]34.3 g/dL32.5-35.6FUC Medical CenterMCV Auto (RBC) [Entitic vol]Ordered By: Eliezer Juarez on 08-64-7626MHJ (RBC) [Entitic vol]90.1 fL83.5-101Tr[facility] Health SystemMonocytes Auto (Bld) [#/Vol] Ordered By: Eliezer Juarez on 30-75-6098Qwipopgug (Bld) [#/Vol]0.6 10*3/uL 0.0-0.8[facility] Health SystemMonocytes/100 WBC Auto (Bld)Ordered By: Eliezer Juarez on 33-30-8809Nwkrpwuwz/100 WBC (Bld)15.8 %.[facility] Health SystemNeutrophils Auto (Bld) [#/Vol]Ordered By: Eliezer Juarez on 49-13-3166Piclucjatlr (Bld) [#/Vol]2.0 10*3/uL1.8-7.7FUC Medical CenterNeutrophils/100 WBC Auto (Bld)Ordered By: Eliezer Juarez on 10-17-2023 Neutrophils/100 WBC (Bld)57.7 %.[facility] Health SystemNo Panel InformationOrdered By: Eliezer Juarez on 86-67-6533Tabaibmop GFR (CKD-EPI)> 60.0 mL/MinTrinity Health SystemPharmacy Creatinine Clearance (Chem N/AFUC Medical CenterNucleated erythrocytes [Presence] in Blood by Automated countOrdered By: Eliezer Juarez on 11-16-7524Dhunhyhme RBC Auto Ql (Bld)0.4 /100{WBC}0-0.5FUC Medical CenterPlatelet mean volume Auto (Bld) [Entitic vol]Ordered By: Eliezer Juarez on 59-29-8215Jhvnhaec mean volume (Bld) [Entitic vol]7.8 fL6.6-10.1[facility] Platelets Auto (Bld) [#/Vol]Ordered By: Eliezer Juarez on 64-43-9142Cgmmekdee (Bld) [#/Vol]170 10*3/vF981-158ThvxsiwnbTrinity Health SystemPotassium [Moles/volume] in Serum or PlasmaOrdered By: Eliezer Juarez on 10-17-2023 Potassium [Moles/Vol]4.7 mmol/L3.5-5.1FUC Medical CenterProtein [Mass/volume] in Serum or PlasmaOrdered By: Eliezer Juarez on 10-17-2023 Protein [Mass/Vol]6.6 g/dL6.4-8.9[facility] Health SystemRBC Auto (Bld) [#/Vol]Ordered By: Eliezer Juarez on 09-55-0989LVV (Bld) [#/Vol]4.36 10*6/uL 3.90-5.60[facility] Hospitalerum or plasma albumin/globulin mass ratioOrdered By: Eliezer Juarez on 29-90-1689Drrtbyv/Globulin [Mass ratio]1.5 {ratio}[facility] Hospitalerum or plasma anion gap determination Ordered By: Eliezer Juarez on 47-33-5312Ixphk gap [Moles/Vol]11.1 mmol/L 6.0-15.0[facility] Hospitalerum or plasma high density lipoprotein (HDL) cholesterol measurementOrdered By: Eliezer Juarez on 76-02-8129Eynpojfdbsy in HDL [Mass/Vol]42 mg/wV23-88TbchdhezlTrinity Health SystemComment on above:HDL CHOL ATP-III CLASSIFICATION Cardiovascular RiskHDL > or equal to 60 mg/dL LOWHDL < 40 mg/dL HIGHSerum or plasma total cholesterol/high density lipoprotein (HDL) cholesterol mass ratOrdered By: Eliezer Juarez on 39-54-3453Kfnncvqvokm.total/Cholesterol in HDL [Mass ratio] 3.4 {ratio}<5.0Dunlap Memorial Hospitalodium [Moles/volume] in Serum or PlasmaOrdered By: Eliezer Juarez on 10-08-0996Mzaeyk [Moles/Vol]139 mmol/L 136-145Tr[facility] Health SystemTriglyceride [Mass/volume] in Serum or PlasmaOrdered By: Eliezer Juarez on 51-10-2006Fvyhgrxnjfgr [Mass/Vol]105 mg/dL 0-149Tr[facility] Health SystemComment on above:TRIG ATP III CLASSIFICATIONTRIG less than 150 mg/dL NormalTRIG 150-199 mg/dL Borderline highTRIG 200-500 mg/dL High TRIG greater than 500 mg/dL Very highStandard traceable to the Center for Disease Conrtrol and Prevention (CDC) test method. Urea nitrogen [Mass/volume] in Serum or PlasmaOrdered By: Eliezer Juarez on 71-06-2968Bwtj nitrogen [Mass/Vol]15 mg/dL7-[facility] WBC Auto (Bld) [#/Vol]Ordered By: Eliezer Juaerz on 49-21-6572VXR (Bld) [#/Vol]3.5 10*3/uL4.1-10.5FUC Medical CenterCreatinine [Mass/volume] in Serum or PlasmaOrdered By: Cristian Beaver on 10-12-2023 Creatinine [Mass/Vol]1.11 mg/dL0.70-1.30[facility] SystemNo Panel InformationOrdered By: Cristian Beaver on 23-08-2934Yonbzqupk GFR (CKD-EPI)> 60.0 mL/MinTrinity Health SystemPharmacy Creatinine Clearance (Chem64.55[facility] Health SystemUrea nitrogen [Mass/volume] in Serum or PlasmaOrdered By: Cristian Beaver on 07-64-4965Dhvf nitrogen [Mass/Vol]18 mg/dL03-21[facility] Health SystemPROF CHEM 8 (BAS METB)on 73-07-7147Licyd gap [Moles/Vol]10.5 mmol/LNormalLima Memorial HospitalComment on above:Performed By: #### BMP #### [facility] [address] [address] [address] Benedict EdmondsonCalcium [Mass/Vol]9.5 mg/dLNormal8.5-10.1[facility] Comment on above:Performed By: #### BMP #### [facility] [address] [address] [address] Benedict EdmondsonChloride [Moles/Vol]106 mmol/YWxizhf98-399AvtLima Memorial Hospital Comment on above:Performed By: #### BMP #### [facility] [address] [address] [address] Benedict EdmondsonCO2 [Moles/Vol]28.8 mmol/ULgflcq30.0-32.0[facility] Comment on above:Performed By: #### BMP #### [facility] [address] [address] [address] Benedict EdmondsonCreatinine [Mass/Vol]1.28 mg/dLNormal0.70-1.30The [facility] CampusComment on above:Performed By: #### BMP #### [facility] [address] [address] [address] Mcmullen ChangEGFR-AF MALIAN>60Normal>=60The [facility] CampusComment on above:Performed By: #### BMP #### [facility] [address] [address] [address] Benedict PatelGFR-NON AF PBMHHUHL20 mL/min/1.17m7Ppnpylrgdz low>=60The [facility] CampusComment on above:Performed By: #### BMP #### [facility] [address] [place] [address] Dr. Benedict EdmondsonGlucose [Mass/Vol]97 mg/wXOhigpe55-591Qvo [facility] Comment on above:Performed By: #### BMP #### [facility] [address] [place] [address] Dr. Benedict EdmondsonPotassium [Moles/Vol]4.3 mmol/LNormal3.5-5.1The [facility] Comment on above:Performed By: #### BMP #### [facility] [address] [place] [address] Dr. Benedict EdmondsonSodium [Moles/Vol]141 mmol/AFpnrar292-395Tot [facility] Comment on above:Performed By: #### BMP #### [facility] [address] [place] [address] Dr. Benedict EdmondsonUrea nitrogen [Mass/Vol]17.0 mg/dLNormal7.0-18.0The [facility] CampusComment on above:Performed By: #### BMP #### [facility] [address] [place] [address] Dr. Benedict EdmondsonUrea nitrogen/Creatinine [Mass ratio]13.3 mg/mgNormalThe [facility] CampusComment on above:Performed By: #### BMP #### [facility] [address] [place] [address] Dr. Benedict Moore 14(COMP METB)on 95-39-8881Rxuetma [Mass/Vol]3.1 g/dL Critically low3.4-5.0The [facility] CampusComment on above:Performed By: #### CMP #### [facility] [address] [address] [address] Benedict EdmondsonAlbumin/Globulin [Mass ratio]0.8 {ratio}NormalThe [facility] CampusComment on above:Performed By: #### CMP #### [facility] [address] [place] [address] Dr. Benedict AdamsP [Catalytic activity/Vol]83 U/XTtppmo33-808Gpj [facility] CampusComment on above:Performed By: #### CMP #### [facility] [address] [place] [address] Dr. Benedict Hidalgo [Catalytic activity/Vol]29 U/NOspzkg02-99Svr [facility] CampusComment on above:Performed By: #### CMP #### [facility] [address] [place] [address] Dr. Benedict Forbes gap [Moles/Vol]12.9 mmol/LNormalThe [facility] Comment on above:Performed By: #### CMP #### [facility] [address] [place] [address] Dr. Bendeict Mario [Catalytic activity/Vol]31 U/TWyjvcg09-90Eqf [facility] CampusComment on above:Performed By: #### CMP #### [facility] [address] [place] [address] Dr. Benedict EdmondsonBilirubin [Mass/Vol]1.0 mg/dLNormal0.2-1.0The [facility] Comment on above:Performed By: #### CMP #### [facility] [address] [place] [address] Dr. Benedict EdmondsonCalcium [Mass/Vol]9.2 mg/dLNormal8.5-10.1[facility] Comment on above:Performed By: #### CMP #### [facility] [address] [place] [address] Dr. Benedict EdmondsonChloride [Moles/Vol]102 mmol/LWskigv02-950Onb [facility] Comment on above:Performed By: #### CMP #### [facility] [address] [address] [address] Benedict EdmondsonCO2 [Moles/Vol]27.0 mmol/FSgirrp61.0-32.0[facility] Comment on above:Performed By: #### CMP #### [facility] [address] [address] [address] Benedict EdmondsonCreatinine [Mass/Vol]2.03 mg/dLCritically high0.70-1.30[facility] CampusComment on above:Performed By: #### CMP #### [facility] [address] [place] [address] Dr. Mcmullen ChangEGFR-AF PTRIURPL29 mL/min/1.97v5Pldqcvddgb low>=60[facility] CampusComment on above:Performed By: #### CMP #### [facility] [address] [place] [address] Dr. Benedict PatelGFR-NON AF SQPORHNT08 mL/min/1.35i1Whrawpggcl low>=60[facility] CampusComment on above:Performed By: #### CMP #### [facility] [address] [place] [address] Dr. Benedict EdmondsonGlobulin (S) [Mass/Vol]3.8 g/dLNormalThe [facility] CampusComment on above:Performed By: #### CMP #### [facility] [address] [place] [address] Dr. Benedict EdmondsonGlucose [Mass/Vol]94 mg/gADkgfdk63-607VdmLima [facility] Comment on above:Performed By: #### CMP #### [facility] [address] [address] [address] Benedict EdmondsonPotassium [Moles/Vol]4.9 mmol/LNormal3.5-5.1[facility] Comment on above:Performed By: #### CMP #### [facility] [address] [place] [address] Dr. Benedict EdmondsonProtein [Mass/Vol]6.9 g/dLNormal6.4-8.2[facility] Comment on above:Performed By: #### CMP #### [facility] [address] [address] [address] Benedict EdmondsonSodium [Moles/Vol]137 mmol/JHgxwjn981-522Oxv [facility] Comment on above:Performed By: #### CMP #### [facility] [address] [address] [address] Benedict EdmondsonUrea nitrogen [Mass/Vol]34.0 mg/dLCritically high7.0-18.0[facility] CampusComment on above:Performed By: #### CMP #### [facility] [address] [address] [address] Benedict Dickinson nitrogen/Creatinine [Mass ratio]16.7 mg/mgNoalThe [facility] CampusComment on above:Performed By: #### CMP #### [facility] [address] [address] [address] Benedict EdmondsonBacteria identified Cx Nom (Bld)on 63-40-8565Aortuhqushpoxa and review of laboratory resultsNormalOhioHealLakeHealth TriPoint Medical CenterCBC Auto Differentialon 81-82-2397Nphcfdwcf (Bld) [#/Vol]0.02 10*3/uLOhioHealthBasophils/100 WBC (Bld) 0.4 %OhioHealthEosinophils (Bld) [#/Vol]0.21 10*3/uLOhioHealthEosinophils/100 WBC (Bld)3.9 %OhioHealthErythrocyte distribution width (RBC) [Entitic vol]13.4 % 11.6 - 14.8 %OhioHealthHematocrit (Bld) [Volume fraction]33.6 %Low41.0 - 53.0 % OhioHealthHemoglobin (Bld) [Mass/Vol]11.5 g/dLLow13.5 - 17.5 g/dLOhioHealth Immature granulocytes (Bld) [#/Vol]0.02 10*3/uLOhioHealthImmature granulocytes/100 WBC (Bld)0.40 %OhioHealthComment on above:The IG parameter is the percentage of metamyelocytes, myelocytes and promyelocytes. An immature gran ulocyte count (IG) of 1% or more suggests the possibility of infection, an IG count of 3% is very likely related to an infection.Interpretation and review of laboratory resultsAbnormalOhioHealthLymphocytes (Bld) [#/Vol]0.62 10*3/uLLow OhioHealthLymphocytes/100 WBC (Bld)11.4 %OhioHealthMCH (RBC) [Entitic mass]30.7 pg26.0 - 34.0 pgOhioHealthMCHC (RBC) [Mass/Vol]34.2 g/dL31.0 - 37.0 g/dL OhioHealthMCV (RBC) [Entitic vol]89.8 fL80.0 - 100.0 fLOhioHealthMonocytes (Bld) [#/Vol]0.78 10*3/uLOhioHealthMonocytes/100 WBC (Bld)14.4 %OhioHealthNeutrophils (Bld) [#/Vol]3.78 10*3/uLOhioHealthNeutrophils/100 WBC (Bld)69.5 %[facility] Nucleated RBC (Bld) [#/Vol]0.00 10*3/uLOhioHealthNucleated RBC/100 WBC (Bld) [Ratio]0.0 %OhioHealthPlatelet mean volume (Bld) [Entitic vol]9.7 fL9.4 - 12.4 fLOhioHealthPlatelets (Bld) [#/Vol]170 10*3/uLOhioHealthRBC (Bld) [#/Vol]3.74 10*6/uLLowOhioHealthWBC (Bld) [#/Vol]5.43 10*3/uLOhioHealthOhioHealthLaboratory - Microbiology and Antimicrobial susceptibilityon 26-98-8350Vrkjchcg identified Cx Nom (Bld)No Growth After 5 DaysOhioHealthMagnesium Levelon 11-08-2022 Magnesium [Mass/Vol]2.3 mg/dL1.6 - 2.4 mg/dLOhioHealthMagnesium [Mass/Vol]on 40-42-8558Eechvyxuavvebf and review of laboratory resultsNormalOhioHealth OhioHealthRenal function 1999 panelon 28-26-3920Heuxttt [Mass/Vol]3.3 g/dL3.2 - 5.2 g/dLOhioHealthAnion gap [Moles/Vol]13 mmol/L10 - 20 mmol/LOhioHealthCalcium [Mass/Vol]9.3 mg/dL8.4 - 10.2 mg/dLOhioHealthChloride [Moles/Vol]104 mmol/L98 - 108 mmol/LOhioHealthCreatinine [Mass/Vol]1.16 mg/dL0.80 - 1.30 mg/dLOhioHealth GFR/1.73 sq M.predicted CKD-EPI (S/P/Bld) [Vol rate/Area]62- [facility] Comment on above:Estimated GFR was calculated using the 2020 CKD-EPI creatinine equation.Glucose [Mass/Vol]114 mg/vYHcon08 - 99 mg/dLOhioHealthHCO3 [Moles/Vol] 24 mmol/L21 - 32 mmol/LOhioHealthInterpretation and review of laboratory results AbnormalOhioHealthPhosphate [Mass/Vol]2.7 mg/dL2.3 - 3.7 mg/dLOhioHealth Potassium [Moles/Vol]4.1 mmol/L3.5 - 5.1 mmol/LOhioHealthSodium [Moles/Vol]137 mmol/L135 - 145 mmol/LOhioHealthUrea nitrogen [Mass/Vol]24 mg/dL8 - 25 mg/dL [facility] HospitalUrea nitrogen/Creatinine [Mass ratio]20.7 mg/aoDvwp85.0 - 20.0 [facility] has implemented the eGFR calculation approach that does not have a coefficient for race that conforms to the NKF-ASN Task Force Recommendations.[facility] SystemXR Chest 1 Viewon 11-08-2022 1. Prior median sternotomy from CABG as well as prior coronary artery stenting noted. Heart size ismildly enlarged. Changes from atherosclerosis are also again [...] pneumothorax or acute osseous change otherwise suspected. [employer] Workstation ID: [id number] RISEXAMINATION: XR CHEST PA/AP 11/08/2022 8:22 AM HISTORY: [...] A total of two images were obtained. Romulo Myers MD - 11/08/2022 EXAMINATION: XR CHEST PA/AP 11/08/2022 [...] prior coronary artery stenting noted. Heart size ismildly enlarged. Changes from atherosclerosis are also again [...] pneumothorax or acute osseous change otherwise suspected. [employer] Workstation ID: [id number] [facility] HospitalRadiology Study observation (narrative)[facility] HospitalXR Chest 1 View Ordered By: Romulo Case on [id number] Work Phone: cbc Auto Differentialon 55-26-0114Jjotdzulz (Bld) [#/Vol]0.02 10*3/uLOhioHealthBasophils/100 WBC (Bld)0.3 %OhioHealthEosinophils (Bld) [#/Vol]0.18 10*3/uLOhioHealthEosinophils/100 WBC (Bld)3.0 %[facility] Erythrocyte distribution width (RBC) [Entitic vol]13.7 %11.6 - 14.8 %[facility] Hematocrit (Bld) [Volume fraction]34.1 %Low41.0 - 53.0 %OhioHealthHemoglobin (Bld) [Mass/Vol]11.3 g/dLLow13.5 - 17.5 g/dLOhioHealthImmature granulocytes (Bld) [#/Vol]0.05 10*3/uLOhioHealthImmature granulocytes/100 WBC (Bld)0.80 % OhioHealthComment on above:The IG parameter is the percentage of metamyelocytes, myelocytes and promyelocytes. An immature granulocyte count (IG) of 1% or more suggests the possibility of infection, an IG count of 3% is very likely related to an infection.Interpretation and review of laboratory resultsAbnormal OhioHealthLymphocytes (Bld) [#/Vol]0.68 10*3/uLLowOhioHealthLymphocytes/100 WBC (Bld)11.4 %OhioHealthMCH (RBC) [Entitic mass]30.1 pg26.0 - 34.0 pgOhioHealthMCHC (RBC) [Mass/Vol]33.1 g/dL31.0 - 37.0 g/dLOhioHealthMCV (RBC) [Entitic vol]90.9 fL80.0 - 100.0 fLOhioHealthMonocytes (Bld) [#/Vol]0.74 10*3/uLOhioHealth Monocytes/100 WBC (Bld)12.4 %OhioHealthNeutrophils (Bld) [#/Vol]4.31 10*3/uL OhioHealthNeutrophils/100 WBC (Bld)72.1 %OhioHealthNucleated RBC (Bld) [#/Vol] 0.00 10*3/uLOhioHealthNucleated RBC/100 WBC (Bld) [Ratio]0.0 %OhioHealthPlatelet mean volume (Bld) [Entitic vol]9.8 fL9.4 - 12.4 fLOhioHealthPlatelets (Bld) [#/Vol]157 10*3/uLOhioHealthRBC (Bld) [#/Vol]3.75 10*6/uLLowOhioHealthWBC (Bld) [#/Vol]5.98 10*3/uLOhioHealthOhioHealthECG 12 Leadon 47-17-6166Ahfddf Mjpl00JSN OhioHealthP-R Allltmje615 msOhioHealthQ-T Dfmynwdz580 msOhioHealthQRS Tszzvuib27 msOhioHealthQTC Calculation (Bezet)467 msOhioHealthR Hwuo85hivhuinVqupGjshqsP Hrya20ljqjvvpTqfeXzaiumSoarmugbkkr Kuln48QOHKwqgDkfayhNundt rhythm with occasional Premature ventricular complexes and Premature atrial complexes Otherwise normal ECG Confirmed by YAW DIAZ, [facility] ([id number]) on 11/07/2022 11:37:24 AMMUSE FloridaHealthMagnesium Levelon 83-15-5385Hggzheeic [Mass/Vol]2.1 mg/dL1.6 - 2.4 mg/dLOhioHealthMagnesium [Mass/Vol]on 61-62-8984Uakknxdpalhnlz and review of laboratory resultsNormalOhioHealthOhioHealthRenal function 2000 panelon 90-11-1837Vlbtmon [Mass/Vol]3.1 g/dLLow3.2 - 5.2 g/dLOhioHealthAnion gap [Moles/Vol]16 mmol/L10 - 20 mmol/LOhioHealthCalcium [Mass/Vol]8.8 mg/dL8.4 - 10.2 mg/dLOhioHealthChloride [Moles/Vol]101 mmol/L98 - 108 mmol/LOhioHealth Creatinine [Mass/Vol]1.34 mg/dLHigh0.80 - 1.30 mg/dLOhioHealthGFR/1.73 sq M.predicted CKD-EPI (S/P/Bld) [Vol rate/Area]53Low- PINFOhioHealthComment on above:Estimated GFR was calculated using the 2020 CKD-EPI creatinine equation. Glucose [Mass/Vol]102 mg/bUWpid48 - 99 mg/dLOhioHealthHCO3 [Moles/Vol]23 mmol/L 21 - 32 mmol/LOhioHealthInterpretation and review of laboratory resultsAbnormal OhioHealthPhosphate [Mass/Vol]3.1 mg/dL2.3 - 3.7 mg/dLOhioHealthPotassium [Moles/Vol]3.8 mmol/L3.5 - 5.1 mmol/LOhioHealthSodium [Moles/Vol]136 mmol/L135 - 145 mmol/LOhioHealthUrea nitrogen [Mass/Vol]26 mg/dLHigh8 - 25 mg/dLOhioHealth Urea nitrogen/Creatinine [Mass ratio]19.4 mg/mg10.0 - 20.0[facility] has implemented the eGFR calculation approach that does not have a coefficient for race that conforms to the NKF-ASN Task Force Recommendations.[facility] SystemTSH DL <= 0.005 mIU/L Qnon 11-07-2022 Interpretation and review of laboratory resultsNormalOMercy Health Allen HospitalTSH Qn1.75 m[IU]/LOhioHealthOhioHealthTroponin x 2 (Now and Repeat in 3 hours)on 11-07-2022 Interp Troponin T Delta ChangeProbable non-acute cardiac injury or late presentation of acute injury.[facility] HospitalInterpretation and review of laboratory resultsAbnormalOhioHealthTroponin T51 ng/LCritically highNINF - 22 ng/L [facility] HospitalTroponin T Delta %-7 %<20% of Baseline TroponinHolzer Health System Troponin x 2 (Now and Repeat in 3 hours)Ordered By: Eloina Lama on 12-99-7820Jrjwjseyghjsdv and review of laboratory resultsAbnormalOOhioHealthealth Troponin T55 ng/LCritically highNINF - 22 ng/LOhioHealthTroponin T InterpretationPossible acute cardiac injury.[facility] DaytonioHealthBacteria identified Aer cx Nom (Sput)Ordered By: Thania Tierney on 88-16-5201Ziqbgdlewju observation Gram stain Nom (Sput)Rare WBCOhioHealthMicroscopic observation Gram stain Nom (Sput)Many Mixed FloraOhioHealthMicroscopic observation Gram stain Nom (Sput)Many Epithelial CellsOhioHealthOhioHealthCBC Auto Differentialon 07-99-5424Adezcoqkw (Bld) [#/Vol]0.02 10*3/uLOhioHealthBasophils/100 WBC (Bld) 0.3 %OhioHealthEosinophils (Bld) [#/Vol]0.20 10*3/uLOhioHealthEosinophils/100 WBC (Bld)2.8 %OhioHealthErythrocyte distribution width (RBC) [Entitic vol]13.7 % 11.6 - 14.8 %OhioHealthHematocrit (Bld) [Volume fraction]37.7 %Low41.0 - 53.0 % OhioHealthHemoglobin (Bld) [Mass/Vol]12.5 g/dLLow13.5 - 17.5 g/dLOhioHealth Comment on above:Peripheral smear reviewed manuallyImmature granulocytes (Bld) [#/Vol]0.03 10*3/uLOhioHealthImmature granulocytes/100 WBC (Bld)0.40 %[facility] Comment on above:The IG parameter is the percentage of metamyelocytes, myelocytes and promyelocytes. An immature granulocyte count (IG) of 1% or more suggests the possibility of infection, an IG count of 3% is very likely related to an infection.Interpretation and review of laboratory resultsAbnormal OhioHealthLymphocytes (Bld) [#/Vol]0.50 10*3/uLLowOhioHealthLymphocytes/100 WBC (Bld)7.1 %OhioHealthMCH (RBC) [Entitic mass]29.9 pg26.0 - 34.0 pgOhioHealthMCHC (RBC) [Mass/Vol]33.2 g/dL31.0 - 37.0 g/dLOhioHealthComment on above:Cold Agglutinin presentMCV (RBC) [Entitic vol]90.2 fL80.0 - 100.0 fLOhioHealth Monocytes (Bld) [#/Vol]0.66 10*3/uLOhioHealthMonocytes/100 WBC (Bld)9.3 % OhioHealthNeutrophils (Bld) [#/Vol]5.66 10*3/uLOhioHealthNeutrophils/100 WBC (Bld)80.1 %OhioHealthNucleated RBC (Bld) [#/Vol]0.00 10*3/uLOhioHealthNucleated RBC/100 WBC (Bld) [Ratio]0.0 %OhioHealthPlatelet mean volume (Bld) [Entitic vol] 9.9 fL9.4 - 12.4 fLOhioHealthPlatelets (Bld) [#/Vol]156 10*3/uLOhioHealthRBC (Bld) [#/Vol]4.18 10*6/uLLowOhioHealthWBC (Bld) [#/Vol]7.07 10*3/uLOhioHealth OhioHealthEchocardiogram complete w contrastOrdered By: Obdulio Mack on 00-73-1002ED17.1148 %[facility] Work Phone: [facility] Work Phone: Echocardiogram complete w contraston 88-75-9103Tleipcs Info Name: TRISTIN POWELL Age: 82 years : 1940 Gender: Male Ht: 185 cm Wt: 113 kg BSA: 2.45 m2 HR: 85 bpm BP: 112 / 62 mmHg Technical Quality: Technically difficult Exam Date: 11/06/2022 11:02 AM Patient Status: Inpatient Stock Cutter: Jefferson Mckeon, DEMETRIS, KIRILL Exam Type: ECHOCARDIOGRAM COMPLETE W CONTRAST Study Info Indications R06.00 - Dyspnea, unspecified - Evaluate LV function - Dyspnea Attending [phone] BMI: 32.98 kg/m2 Summary 1. Mild concentric [...] of 1.6 cm/m2. Left Ventricular Outflow Tract Name Value Normal LVOT 2D LVOT Diameter 2.5 cm Mitral Valve Name Value Normal MV Doppler MV PHT 52 ms MV Area (PHT) 4.2 cm2 4.0-5.0 MV Diastolic Function MV E Peak Velocity 0.70 m/s MV A Peak Velocity 1.04 m/s MV E/A 0.7 MV Decel Time 180 ms MV Annular TDI (more content not included)...KARY Paulino, Obdulio Cavazos MD - 11/06/2022 Patient Info Name: TRISTIN POWELL Age: 82 years : 1940 Gender: Male Ht: 185 cm Wt: 113 kg BSA: 2.45 m2 HR: 85 bpm BP: 112 / 62 mmHg Technical Quality: Technically difficult Exam Date: 11/06/2022 11:02 AM Patient Status: Inpatient Stock Cutter: Jefferson Mckeon MHA, KIRILL Exam Type: ECHOCARDIOGRAM COMPLETE W CONTRAST Study Info Indications R06.00 - Dyspnea, unspecified - Evaluate LV function - Dyspnea Attending [facility]: [facility] [phone] BMI: 32.98 kg/m2 Summary 1. Mild concentric [...] of 1.6 cm/m2. Left Ventricular Outflow Tract Name Value Normal LVOT 2D LVOT Diameter 2.5 cm Mitral Valve Name Value Normal MV Doppler MV PHT 52 ms MV Area (PHT) 4.2 cm2 4.0-5.0 MV Diastolic Function MV E Peak Velocity 0.70 m/s MV A Peak Velocity 1.04 m/s MV E/A 0.7 MV Decel Time 180 ms MV Annular TDI MV Septal e' Velocity 3.8 cm/s >=8.0 MV E/e' (Septal) 18.4 <=8.0 MV Lateral e' Velocity 6.7 cm/s >=10.0 MV E/e' (Lateral) 10.5 <=8.0 MV e' Average 5.25 cm/s MV E/e' (Average) 14.5 Tricuspid Valve Name Value Normal (more content not included)... [facility] HospitalRadiology Study observation (narrative)[facility] HospitalMagnesium Levelon 23-32-6772Mgnicqote [Mass/Vol]2.0 mg/dL1.6 - 2.4 mg/dLOhioHealthMagnesium [Mass/Vol]on 26-62-4443Rbsmiegzhjrxyv and review of laboratory resultsNormal [facility] HospitalOhioHealthRenal function 1999 panelon 53-40-9899Cjoqmhm [Mass/Vol]3.3 g/dL3.2 - 5.2 g/dLOhioHealthAnion gap [Moles/Vol]16 mmol/L10 - 20 mmol/L OhioHealthCalcium [Mass/Vol]8.9 mg/dL8.4 - 10.2 mg/dLOhioHealthChloride [Moles/Vol]102 mmol/L98 - 108 mmol/LOhioHealthCreatinine [Mass/Vol]1.34 mg/dL High0.80 - 1.30 mg/dLOhioHealthGFR/1.73 sq M.predicted CKD-EPI (S/P/Bld) [Vol rate/Area]53Low- PINFOhioHealthComment on above:Estimated GFR was calculated using the 2020 CKD-EPI creatinine equation.Glucose [Mass/Vol]141 mg/cUTzpi40 - 99 mg/dLOhioHealthHCO3 [Moles/Vol]24 mmol/L21 - 32 mmol/LOhioHealth Interpretation and review of laboratory resultsAbnormalOhioHealthPhosphate [Mass/Vol]3.6 mg/dL2.3 - 3.7 mg/dLOhioHealthPotassium [Moles/Vol]3.9 mmol/L3.5 - 5.1 mmol/LOhioHealthSodium [Moles/Vol]138 mmol/L135 - 145 mmol/LOhioHealthUrea nitrogen [Mass/Vol]26 mg/dLHigh8 - 25 mg/dLOhioHealthUrea nitrogen/Creatinine [Mass ratio]19.4 mg/mg10.0 - 20.0[facility] has implemented the eGFR calculation approach that does not have a coefficient for race that conforms to the NKF-ASN Task Force Recommendations.[facility] Centerutum Aerobic CultureOrdered By: Thania Tierney on 78-45-5837Qtrhgwll identified Aer cx Nom (Sput)Normal [place] After 48 HoursOhBluffton Hospital Auto Differentialon 62-62-4399Zhmyrubau (Bld) [#/Vol]0.02 10*3/uLFloridaHealth Basophils/100 WBC (Bld)0.3 %OhioHealthEosinophils (Bld) [#/Vol]0.18 10*3/uL OhioRiverview Health InstituteEosinophils/100 WBC (Bld)2.7 %[facility] HospitalErythrocyte distribution width (RBC) [Entitic vol]13.8 %11.6 - 14.8 %FloridaHealthHematocrit (Bld) [Volume fraction]33.8 %Low41.0 - 53.0 %OhioRiverview Health InstituteHemoglobin (Bld) [Mass/Vol]12.1 g/dLLow 13.5 - 17.5 g/dLOhKettering Health Main CampusImmature granulocytes (Bld) [#/Vol]0.06 10*3/uL OhioRiverview Health InstituteImmature granulocytes/100 WBC (Bld)0.90 %[facility] HospitalComment on above: The IG parameter is the percentage of metamyelocytes, myelocytes and promyelocytes. An immature granulocyte count (IG) of 1% or more suggests the possibility of infection, an IG count of 3% is very likely related to an infection.Interpretation and review of laboratory resultsAbnormalOhioHealth Lymphocytes (Bld) [#/Vol]0.62 10*3/uLLowOhioHealthLymphocytes/100 WBC (Bld)9.3 % OhioHealthMCH (RBC) [Entitic mass]32.9 pg26.0 - 34.0 pgOhioHealthMCHC (RBC) [Mass/Vol]35.8 g/dL31.0 - 37.0 g/dLOhioHealthMCV (RBC) [Entitic vol]91.8 fL80.0 - 100.0 fLOhioHealthMonocytes (Bld) [#/Vol]0.74 10*3/uLOhioHealthMonocytes/100 WBC (Bld)11.1 %OhioHealthNeutrophils (Bld) [#/Vol]5.06 10*3/uLOhioHealth Neutrophils/100 WBC (Bld)75.7 %OhioHealthNucleated RBC (Bld) [#/Vol]0.00 10*3/uL OhioHealthNucleated RBC/100 WBC (Bld) [Ratio]0.0 %OhioHealthPlatelet mean volume (Bld) [Entitic vol]9.5 fL9.4 - 12.4 fLOhioHealthPlatelets (Bld) [#/Vol]164 10*3/uLOhioHealthRBC (Bld) [#/Vol]3.68 10*6/uLLowOhioHealthWBC (Bld) [#/Vol]6.68 10*3/uLOhioHealthOhioHealthMagnesium Levelon 25-46-8964Dxroyxwir [Mass/Vol]2.2 mg/dL1.6 - 2.4 mg/dLOhioHealthMagnesium [Mass/Vol]on 64-59-4489Fzypboxnzuniiq and review of laboratory resultsNormalOhioHealthOhioHealthRenal function 2000 panelon 32-58-0805Equgquo [Mass/Vol]3.1 g/dLLow3.2 - 5.2 g/dLOhioHealthAnion gap [Moles/Vol]16 mmol/L10 - 20 mmol/LOhioHealthCalcium [Mass/Vol]8.6 mg/dL8.4 - 10.2 mg/dLOhioHealthChloride [Moles/Vol]101 mmol/L98 - 108 mmol/LOhioHealth Creatinine [Mass/Vol]1.20 mg/dL0.80 - 1.30 mg/dLOhioHealthGFR/1.73 sq M.predicted CKD-EPI (S/P/Bld) [Vol rate/Area]60- PINFOhioHealthComment on above: Estimated GFR was calculated using the 2020 CKD-EPI creatinine equation.Glucose [Mass/Vol]114 mg/fDLqyp22 - 99 mg/dLOhioHealthHCO3 [Moles/Vol]22 mmol/L21 - 32 mmol/LOhioHealthInterpretation and review of laboratory resultsAbnormal OhioHealthPhosphate [Mass/Vol]4.3 mg/dLHigh2.3 - 3.7 mg/dLOhioHealthPotassium [Moles/Vol]3.7 mmol/L3.5 - 5.1 mmol/LOhioHealthSodium [Moles/Vol]135 mmol/L135 - 145 mmol/LOhioHealthUrea nitrogen [Mass/Vol]22 mg/dL8 - 25 mg/dLOhioHealthUrea nitrogen/Creatinine [Mass ratio]18.3 mg/mg10.0 - 20.0[facility] has implemented the eGFR calculation approach that does not have a coefficient for race that conforms to the NKF-ASN Task Force Recommendations.[facility] Auto Differentialon 69-33-4435Gbejgnfhb (Bld) [#/Vol]0.01 10*3/uLOhioHealthBasophils/100 WBC (Bld)0.2 %[facility] Eosinophils (Bld) [#/Vol]0.11 10*3/uLOhioHealthEosinophils/100 WBC (Bld)1.7 % [facility] HospitalErythrocyte distribution width (RBC) [Entitic vol]13.9 %11.6 - 14.8 % [facility] HospitalHematocrit (Bld) [Volume fraction]36.9 %Low41.0 - 53.0 %[facility] Hemoglobin (Bld) [Mass/Vol]13.0 g/dLLow13.5 - 17.5 g/dLOhioHealthImmature granulocytes (Bld) [#/Vol]0.06 10*3/uLOhioHealthImmature granulocytes/100 WBC (Bld)0.90 %OhioHealthComment on above:The IG parameter is the percentage of metamyelocytes, myelocytes and promyelocytes. An immature granulocyte count (IG) of 1% or more suggests the possibility of infection, an IG count of 3% is very likely related to an infection.Interpretation and review of laboratory results AbnormalOhioHealthLymphocytes (Bld) [#/Vol]0.60 10*3/uLLowOhioHealth Lymphocytes/100 WBC (Bld)9.2 %OhioHealthMCH (RBC) [Entitic mass]32.8 pg26.0 - 34.0 pgOhioHealthMCHC (RBC) [Mass/Vol]35.2 g/dL31.0 - 37.0 g/dLOhioHealthMCV (RBC) [Entitic vol]93.2 fL80.0 - 100.0 fLOhioHealthMonocytes (Bld) [#/Vol]0.70 10*3/uLOhioHealthMonocytes/100 WBC (Bld)10.7 %OhioHealthNeutrophils (Bld) [#/Vol]5.06 10*3/uLOhioHealthNeutrophils/100 WBC (Bld)77.3 %OhioHealthNucleated RBC (Bld) [#/Vol]0.00 10*3/uLOhioHealthNucleated RBC/100 WBC (Bld) [Ratio]0.0 % OhioHealthPlatelet mean volume (Bld) [Entitic vol]9.3 fLLow9.4 - 12.4 fL OhioHealthPlatelets (Bld) [#/Vol]188 10*3/uLOhioHealthRBC (Bld) [#/Vol]3.96 10*6/uLLowOhioHealthWBC (Bld) [#/Vol]6.54 10*3/uLOhioHealthOhioHealthCOVID-19, MolecularOrdered By: Elaine Robles on 01-98-1343SUTU-CoV-2 (COVID-19) RNA OREN+probe Ql (Resp)Not detectedNot DetectedOhioHealthLegionella Antigen, Urineon 43-29-4158Kozuduywwsasmf and review of laboratory resultsNormalOhioHealthL. pneumophila Ag Ql (U)NegativeNegative for Legionella antigenOhioHealthComment on above:COMMENT: Results may be affected if patient is on diuretics. INTERPRETATION OF RESULTS: Test detects Legionella pneumophilia serogroup 1 antigens in urine. Legionnaires disease cannot be ruled out since other serogroups and species may also cause disease. OhioHealthMRSA DNA Amplified ProbeOrdered By: Joseluis Limon on 85-60-7418DWZL DNA OREN+probe Ql (Unsp spec)Not detectedNot Detected, MRSA NEGATIVEOhioHealth MRSA DNA OREN+probe Ql (Unsp spec)Ordered By: Joseluis Limon on 11-04-2022 Interpretation and review of laboratory resultsNormalOhioHealthOhioHealth Magnesium Levelon 57-23-9614Yogtgasxi [Mass/Vol]2.0 mg/dL1.6 - 2.4 mg/dL OhioHealthMagnesium [Mass/Vol]on 00-60-3082Qvwqybchayiyyc and review of laboratory resultsNormalOhioHealthOhioHealthRenal function 2000 panelon 83-43-6318Cgxkdtb [Mass/Vol]3.3 g/dL3.2 - 5.2 g/dLOhioHealthAnion gap [Moles/Vol]15 mmol/L10 - 20 mmol/LOhioHealthCalcium [Mass/Vol]9.2 mg/dL8.4 - 10.2 mg/dLOhioHealthChloride [Moles/Vol]105 mmol/L98 - 108 mmol/LOhioHealth Creatinine [Mass/Vol]0.97 mg/dL0.80 - 1.30 mg/dLOhioHealthGFR/1.73 sq M.predicted CKD-EPI (S/P/Bld) [Vol rate/Area]77- PINFOhioHealthComment on above: Estimated GFR was calculated using the 2020 CKD-EPI creatinine equation.Glucose [Mass/Vol]103 mg/lIXjbn92 - 99 mg/dLOhioHealthHCO3 [Moles/Vol]24 mmol/L21 - 32 mmol/LOhioHealthInterpretation and review of laboratory resultsAbnormal OhioHealthPhosphate [Mass/Vol]3.9 mg/dLHigh2.3 - 3.7 mg/dLOhioHealthPotassium [Moles/Vol]4.4 mmol/L3.5 - 5.1 mmol/LOhioHealthSodium [Moles/Vol]140 mmol/L135 - 145 mmol/LOhioHealthUrea nitrogen [Mass/Vol]18 mg/dL8 - 25 mg/dLOhioHealthUrea nitrogen/Creatinine [Mass ratio]18.6 mg/mg10.0 - 20.0OhioJ.W. [facility]io[facility] has implemented the eGFR calculation approach that does not have a coefficient for race that conforms to the NKF-ASN Task Force Recommendations.OhioRiverview Health InstituteOhioHealthRespiratory pathogens DNA and RNA panel OREN+non-probe (Nph)Ordered By: Shanelle Garcia on [id number] DNA OREN+non-probe Ql (Nph)Not detectedNot DetectedOhioHealthB. parapertussis [id number] DNA OREN+non-probe Ql (Nph)Not detectedNot DetectedOhioHealthB. pertussis toxin promoter region OREN+non-probe Ql (Nph)Not detectedNot DetectedOhioHealthC. pneumoniae DNA OREN+non-probe Ql (Nph)Not detectedNot DetectedOhioHealthFLUAV RNA OREN+non-probe Ql (Nph)Not detectedNot DetectedOhioHealthFLUBV RNA OREN+non-probe Ql (Nph)Not detectedNot DetectedOhioHealthHCoV 229E RNA OREN+non-probe Ql (Nph) Not detectedNot DetectedOhioHealthHCoV HKU1 RNA OREN+non-probe Ql (Nph)Not detectedNot DetectedOhioHealthHCoV NL63 RNA OREN+non-probe Ql (Nph)Not detected Not DetectedOhioHealthHCoV OC43 RNA OREN+non-probe Ql (Nph)Not detectedNot DetectedOhioHealthhMPV RNA OREN+non-probe Ql (Nph)Not detectedNot Detected OhioHealthInterpretation and review of laboratory resultsNormalOhioHealthM. pneumoniae DNA OREN+non-probe Ql (Nph)Not detectedNot DetectedOhioHealth Parainfluenza virus 1 RNA OREN+non-probe Ql (Nph)Not detectedNot Detected OhioHealthParainfluenza virus 2 RNA OREN+non-probe Ql (Nph)Not detectedNot DetectedOhioHealthParainfluenza virus 3 RNA OREN+non-probe Ql (Nph)Not detected Not DetectedOhioHealthParainfluenza virus 4 RNA OREN+non-probe Ql (Nph)Not detectedNot DetectedOhioHealthRhinovirus+Enterovirus RNA OREN+non-probe Ql (Nph) Not detectedNot DetectedOhioHealthRSV RNA OREN+non-probe Ql (Nph)Not detectedNot UcfdcwrnNgdtYdfefhHTND-UwR-6 (COVID-19) RNA OREN+non-probe Ql (Nph)Not detected Not DetectedOhioHealthOhioHealthS. pneumoniae Urine AntigenOrdered By: Kezia Mercedes on 18-18-9136Upobqkevhaeizz and review of laboratory resultsNormal OhioHealthS. pneumoniae Ag Ql (U)NegativePresumptive Negative for Pneumococcal pneumoniaeOhioHealthComment on above:A negative result suggests no current or recent pneumococcal infection. A negative result does not rule out Streptococcus pneumoniae infection since the antigen present in the sample may be below the detection limit of the test.PizdXeaprdQURL-VtC-1 (COVID-19) RNA OREN+probe Ql (Resp)Ordered By: Elaine Robles on 15-25-4501Xeggomxcvzlsco and review of laboratory resultsNormalOhioHealthThis test was performed under the FDA's Emergency [...] at the following links: For Healthcare Providers: https://www.fda.gov/media/139829/download For Patients: https://www.fda.gov/media/613741/downloadOhioHealthOhioHealthXR Humerus Left 2+ Views (Standard)on 11-04-2022 1. Mineralization within normal limits. 2. No acute fractures or dislocations. No aggressive periosteal reaction or destructive osseous changes. 3. Moderate AC joint degeneration. 4. Moderate to large triceps enthesophyte. 5. Curvilinear left lower lung base scarring/atelectasis. Workstation ID: [id number] RISEXAMINATION: XR HUMERUS LEFT 2+ VIEWS (STANDARD) HISTORY: pain, swelling Injury/Trauma or Illness?:Illness/Other How long have you had these symptoms (acute/chronic)?:Acute Reason for exam?:pain, swelling History of cancer?:unk Surgeries, chemotherapy, or radiation?:YES J18.9 Community acquired pneumonia of left lower lobe of lung COMPARISON: None TECHNIQUE: Frontal and lateral views of the left humerus. FINDINGS: As below. Gustavo Camara MD - 11/04/2022 EXAMINATION: XR HUMERUS LEFT [...] lower lung base scarring/atelectasis. Workstation ID: [id number] [facility] HospitalRadiology Study observation (narrative)[facility]River[facility] Health InstituteXR Humerus Left 2+ Views (Standard)Ordered By: Gustavo Muro on 54-78-2617CozmInsqhb Work Phone: Basic metabolic 2000 panelon 31-62-4526Bqwmd gap [Moles/Vol]14 mmol/L10 - 20 mmol/LOhioHealthCalcium [Mass/Vol]9.5 mg/dL8.4 - 10.2 mg/dLOhioHealthChloride [Moles/Vol]101 mmol/L98 - 108 mmol/LOhioHealth Creatinine [Mass/Vol]1.13 mg/dL0.80 - 1.30 mg/dLOhioHealthGFR/1.73 sq M.predicted CKD-EPI (S/P/Bld) [Vol rate/Area]64- PINFOhioHealthComment on above: Estimated GFR was calculated using the 2020 CKD-EPI creatinine equation.Glucose [Mass/Vol]92 mg/dL65 - 99 mg/dLOhioHealthHCO3 [Moles/Vol]24 mmol/L21 - 32 mmol/L [facility] HospitalInterpretation and review of laboratory resultsNormalOhioHealth Potassium [Moles/Vol]4.3 mmol/L3.5 - 5.1 mmol/LOhioHealthSodium [Moles/Vol]135 mmol/L135 - 145 mmol/LOhioHealthUrea nitrogen [Mass/Vol]20 mg/dL8 - 25 mg/dL [facility] HospitalUrea nitrogen/Creatinine [Mass ratio]17.7 mg/mg10.0 - 20.0[facility] has implemented the eGFR calculation approach that does not have a coefficient for race that conforms to the NKF-ASN Task Force Recommendations.[facility] Auto Differentialon 85-88-8964Mwhrlocxt (Bld) [#/Vol]0.03 10*3/uLOhioHealthBasophils/100 WBC (Bld)0.4 %[facility] Eosinophils (Bld) [#/Vol]0.18 10*3/uLOhioHealthEosinophils/100 WBC (Bld)2.2 % [facility] HospitalErythrocyte distribution width (RBC) [Entitic vol]14.3 %11.6 - 14.8 % [facility] HospitalHematocrit (Bld) [Volume fraction]40.7 %Low41.0 - 53.0 %[facility] Hemoglobin (Bld) [Mass/Vol]13.4 g/dLLow13.5 - 17.5 g/dLOhioRiverview Health InstituteImmature granulocytes (Bld) [#/Vol]0.06 10*3/uLOhioHealthImmature granulocytes/100 WBC (Bld)0.70 %[facility] City HospitalComment on above:The IG parameter is the percentage of metamyelocytes, myelocytes and promyelocytes. An immature granulocyte count (IG) of 1% or more suggests the possibility of infection, an IG count of 3% is very likely related to an infection.Interpretation and review of laboratory results AbnormalOhioHealthLymphocytes (Bld) [#/Vol]0.70 10*3/uLLowOhioHealth Lymphocytes/100 WBC (Bld)8.7 %[facility] HospitalMCH (RBC) [Entitic mass]30.5 pg26.0 - 34.0 pgOhioHealthMCHC (RBC) [Mass/Vol]32.9 g/dL31.0 - 37.0 g/dLOhioHealthComment on above:Cold Agglutinin presentMCV (RBC) [Entitic vol]92.7 fL80.0 - 100.0 fL [facility] HospitalMonocytes (Bld) [#/Vol]0.68 10*3/uLOhioHealthMonocytes/100 WBC (Bld) 8.4 %OhioHealthNeutrophils (Bld) [#/Vol]6.41 10*3/uLOhioHealthNeutrophils/100 WBC (Bld)79.6 %OhioHealthNucleated RBC (Bld) [#/Vol]0.00 10*3/uLOhioHealth Nucleated RBC/100 WBC (Bld) [Ratio]0.0 %OhioHealthPlatelet mean volume (Bld) [Entitic vol]10.0 fL9.4 - 12.4 fLOhioHealthPlatelets (Bld) [#/Vol]192 10*3/uL OhioHealthRBC (Bld) [#/Vol]4.39 10*6/uLLowOhioHealthWBC (Bld) [#/Vol]8.06 10*3/uLOhioHealthOhioHealthCRP [Mass/Vol]on 52-00-8131Zbgofbvnjjgucp and review of laboratory resultsAbnormalOhioHealthCRP, Inflammationon 36-26-2425YMI [Mass/Vol]35.4 mg/LHigh0.0 - 10.0 mg/LOhioHealthCT Pulmonary Arterieson 11-03-2022 No evidence for acute pulmonary embolism. Left lower lobe pneumonia. Workstation ID: [id number] RISEXAMINATION: CT PULMONARY ARTERIES HISTORY: ORDERING SYSTEM PROVIDED [...] using automated exposure control and/or adjustment of mAand/or kV according to patient size and/or use of iterative reconstruction technique. FINDINGS: LOWER NECK AND AXILLA: No lymphadenopathy. MEDIASTINAL/HILAR LYMPH NODES: No lymphadenopathy.The esophagus is unremarkable. HEART/PERICARDIUM: Prior coronary artery bypass. The heart is enlarged.. The thoracic aorta appearsunremarkable.No pulmonary arterial filling defects to suggest acute pulmonary embolism. LUNGS/AIRWAYS: Patchy left lower lobe airspace opacity posteriorly suggesting pneumonia. Mild dependent atelectasis at the right base. Scattered benign calcified granulomas. PLEURAL CAVITY: No pleural effusion or pneumothorax. VISUALIZED UPPER ABDOMEN: No acute findings. CHEST WALL: No acute abnormality. Silvio Kaufman MD - 11/03/2022 EXAMINATION: CT PULMONARY ARTERIES [...] using automated exposure control and/or adjustment of mAand/or kV according to patient size and/or use of iterative reconstruction technique. FINDINGS: LOWER NECK AND AXILLA: No lymphadenopathy. MEDIASTINAL/HILAR LYMPH NODES: No lymphadenopathy.The esophagus is unremarkable. HEART/PERICARDIUM: Prior coronary artery bypass. The heart is enlarged.. The thoracic aorta appearsunremarkable.No pulmonary arterial filling defects to suggest acute pulmonary embolism. LUNGS/AIRWAYS: Patchy left lower lobe airspace opacity posteriorly suggesting pneumonia. Mild dependent atelectasis at the right base. Scattered benign calcified granulomas. PLEURAL CAVITY: No pleural effusion or pneumothorax. VISUALIZED UPPER ABDOMEN: No acute findings. CHEST WALL: No acute abnormality. IMPRESSION: No evidence for acute pulmonary embolism. Left lower lobe pneumonia. Workstation ID: [id number] [facility] HospitalRadiology Study observation (narrative)[facility] Pulmonary Arteries Ordered By: Silvio Dhillon on 68-91-0392NyvfLikgbx Work Phone: ekg 12-leadon 61-86-3752Jqweep Tsoo38UKYPkoeQpxnymB Dpuq95nnpnnpsOsobGcwcqwQ-M Vlylvxgv289 msOhioHealthQ-T Gjdwhhoa626 msOhioHealth QRS Rxkciyrv81 msOhioHealthQTC Calculation (Bezet)461 msOhioHealthR Axis46 degreesOhioHealthT Dyal72vsvatjqKruwOzppftGkebmiricpn Gabj50DUNKbbsPhqpozNgitnu sinus rhythm Normal ECG Confirmed by PIERCE MOREAU DO ([id number]) on 11/03/2022 4:55:18 PMMUSEOhioHealthESR Westergren method (Bld) [Velocity]on 46-13-1905QPL (Bld) [Velocity]30 mm/hHigh [facility] HospitalInterpretation and review of laboratory resultsAbnormClinton Memorial HospitalGold Topon 34-47-3770Ttqmc TubeHold for add-ons.[facility] City HospitalComment on above:Auto resulted.NT Pro BNPon 60-82-4303Bdofcfnpguu peptide.B prohormone N- Terminal [Mass/Vol]429 pg/mLHigh0 - 300 pg/mLOhioHealthNatriuretic peptide.B prohormone N-Terminal [Mass/Vol]on 60-40-7075Epbyoyoppjskaz and review of laboratory resultsAbnormalOhiUTealthPride Study Cut-offs Rule In: < /= 50 Years >450 pg/mL 51 Years - 75 Years >900 pg/mL 76 Years - 99 Years >1800 pg/mL Rule Out: All patients <300 pg/mLOhioHealthOhioHealthNo Panel Informationon 11-03-2022 Extra TubeHold for add-ons.[facility] City HospitalComment on above:Auto resulted.[facility] HospitalTroponinOrdered By: Randal Lopez on 60-89-3982Ufbbyl Troponin T Delta ChangeProbable non-acute cardiac injury or late presentation of acute injury.[facility] HospitalInterpretation and review of laboratory resultsAbnormal [facility] HospitalTroponin T119 ng/LCritically highNINF - 22 ng/LOhioHealthTroponin T Delta %1 %<20% of Baseline TroponinOhioJ.W. Ruby Memorial HospitalioHealthTroponinOrdered By: Rhonda Bland on 37-68-3731Gqdbjqyxzbllyb and review of laboratory results AbnormalOhioHealthTroponin T117 ng/LCritically highNINF - 22 ng/LOhioHealth Troponin T InterpretationPossible acute cardiac injury.[facility] UrinalysisOrdered By: Flory Pino on 42-86-5728Vuoqntwg Auto Ql (U)None Seen None Seen /hpfOhioHealthBilirubin Ql (U)NegativeNegativeOhioHealthClarity Refractometry automated (U)ClearClearOhioHealthColor (U)YellowColorless, Yellow OhioHealthGlucose Auto test strip (U) [Mass/Vol]NegativeNegative mg/dLOhioHealth Hemoglobin Auto test strip Ql (U)NegativeNegativeOhioHealthInterpretation and review of laboratory resultsAbnormalOhioHealthKetones (U) [Mass/Vol]Negative Negative mg/dLOhioHealthLeukocyte esterase Auto test strip Ql (U)Negative NegativeOhioHealthMucus Auto (Urine sed) [#/Area]RareNone Seen, Rare /lpf OhioHealthNitrite Auto test strip Ql (U)NegativeNegativeOhioHealthpH (U)7.5 [pH] High5.0 - 7.0OhioHealthProtein (U) [Mass/Vol]NegativeNegative mg/dLOhioHealthRBC Auto (Urine sed) [#/Area]2OhioHealthSpecific gravity (U) [Rel density]1.020 1.005 - 1.025OhioHealthUrobilinogen (U) [Mass/Vol]mg/dLNINF - 2.0 mg/dL OhioHealthMicroscopic examination is performed on all urinalysis samples and only positive findings are reported. The test for blood on the chemical analytic portion of urinalysis may also be positive due to hemoglobinuria and myoglobinuria and if red blood cells are present they are quantified by microscopic examination.OhioHealthOhioHealthUrine Containeron 11-03-2022 OhioHealthVenous Doppler BILATERAL Lower Extremitieson 78-25-3679Aizhxtu Info Name: TRISTIN POWELL Age: 82 years : 1940 Gender: Male Exam Date: 11/03/2022 1:57 PM Patient Status: Emergency Shower Doors And Panels Fabricator: Maggy Dempsey RVT Referring Physician: JUANA Horowitz; Indications R60.9 - Edema, unspecified Procedure Description 40708 Duplex examination using B-mode, color and spectral Doppler of extremity veins including responses to compression and other maneuvers; complete bilateral study. Conclusions * No evidence of deep or superficial vein thrombosis in the right or left lower extremities. . Report Signatures Finalized by Tera Meyer MD, RPVI, FSIR on 11/03/2022 02:59 PMFUJI SYNAPSE Sylvia Meyer MD - 11/03/2022 Patient Info Name: TRISTIN POWELL Age: 82 years : 1940 Gender: Male Exam Date: 11/03/2022 1:57 PM Patient Status: Emergency Shower Doors And Panels Fabricator: Maggy Dempsey RVT Referring Physician: JUANA Horowitz; Indications R60.9 - Edema, unspecified Procedure Description 47776 Duplex examination using B-mode, color and spectral Doppler of extremity veins including responses to compression and other maneuvers; complete bilateral study. Conclusions * No evidence of deep or superficial vein thrombosis in the right or left lower extremities. . Report Signatures Finalized by Tera Meyer MD, [facility], FSIR on 11/03/2022 02:59 PM [facility] HospitalRadiology Study observation (narrative)[facility] Doppler BILATERAL Lower ExtremitiesOrdered By: Sylvia Meyer on 62-35-1589QwcqEkabiv Work Phone: xr Chest 1 Viewon 44-70-8681LXLNWNYF/ 1. Patient is status post sternotomy, somewhat rotated, lordotic. The visualized osseous structuresappear intact. 2. The heart size seems normal. The aorta is tortuous, atherosclerotic. 3. There are some linear densities at lung bases, either scarring or discoid atelectatic changes. There are no focal infiltrates, pleural effusions, pulmonary edema, or pneumothorax. There are a few scattered calcified granulomas within the lungs. RiffRaffV/ads Workstation ID: [id number] RISEXAMINATION: AP UPRIGHT CHEST: 11/03/2022 AT 1536 HOURS HISTORY: Injury/Trauma or Illness?:Illness/Other How long have you had these symptoms (acute/chronic)?:Unknown sob COMPARISON FILMS: AP chest 10/09/[address] [facility]. Cedric Martines MD - 11/03/2022 EXAMINATION: AP UPRIGHT CHEST: 11/03/2022 AT 1536 HOURS HISTORY: Injury/Trauma or Illness?:Illness/Other How long have you had these symptoms (acute/chronic)?:Unknown sob COMPARISON FILMS: AP chest 10/09/[address] [facility]. IMPRESSION: FINDINGS/ 1. Patient is [...] within the lungs. KKV/ads Workstation ID: [id number] [facility] HospitalRadiology Study observation (narrative)[facility] City HospitalXR Chest 1 View Ordered By: Cedric Emmanuel on 81-95-8099CaxuOiiypt Work Phone: XR Foot Left 3+ Views (Standard)on 11-03-2022 Chronic findings without plain film evidence of acute osseous abnormalities. Workstation ID: [id number] RISEXAMINATION: XR FOOT LEFT 3+ VIEWS (STANDARD) HISTORY: [...] tissue edema and vascular atherosclerotic calcification. Rohit Lazo MD - 11/03/2022 EXAMINATION: XR FOOT LEFT [...] osseous abnormalities. Workstation ID: [id number] [facility] (narrative)[facility] HospitalXR Foot Left 3+ Views (Standard)Ordered By: Rohit March on 89-84-8931UzhsKokqzp Work Phone: [facility]NAur[facility] 16-95-1122Egjgqgoiaxx peptide B (Bld) [Mass/Vol] 93 pg/mLNormal0-100Parkwood HospitalComment on above:Performed By: #### BNP #### [place] [address] Ph. [phone] Blood Count with Auto Diffon 39-28-4342UTDW#BASO#: 0.0 Normal0.0-0.1Parkwood HospitalComment on above:Order Comment: resuts after 30 minutes of incubation at 37degree C possible cold rbc agglutination Performed By: #### DIFF, CBCAD #### [place] [address] Ph. [phone]%BASO%: 2Pajwln8-9UbbnehiParkwood HospitalComment on above: Order Comment: resuts after 30 minutes of incubation at 37degree C possible cold rbc agglutinationPerformed By: #### DIFF, CBCAD #### [place] [address] Ph. [phone] (Bld) [#/Vol]0.2 10*3/uLNormal0.0-0.5Parkwood HospitalComment on above:Order Comment: resuts after 30 minutes of incubation at 37degree C possible cold rbc agglutinationPerformed By: #### DIFF, CBCAD #### [place] [address] Ph. [phone]/100 WBC (Bld)2 %Normal0-5[facility] Comment on above:Order Comment: resuts after 30 minutes of incubation at 37degree C possible cold rbc agglutinationPerformed By: #### DIFF, CBCAD #### [place] [address] Ph. [phone] distribution width (RBC) [Ratio]13.8 %Normal 11.5-14.5Parkwood HospitalComment on above:Order Comment: resuts after 30 minutes of incubation at 37degree C possible cold rbc agglutinationPerformed By: #### DIFF, CBCAD #### [place] [address] Ph. [phone] (Bld) [Volume fraction]39.9 %Low42.0-52.0Park[facility] HospitalComment on above:Order Comment: resuts after 30 minutes of incubation at 37degree C possible cold rbc agglutinationPerformed By: #### DIFF, CBCAD #### [place] [address] Ph. [phone] (Bld) [Mass/Vol]13.7 g/qOYzkxkg58.5-17.5Park[facility] HospitalComment on above:Order Comment: resuts after 30 minutes of incubation at 37degree C possible cold rbc agglutinationPerformed By: #### DIFF, CBCAD #### [place] [address] Ph. [phone] (Bld) [#/Vol]0.7 10*3/uLLow1.0-4.0Park[facility] HospitalComment on above:Order Comment: resuts after 30 minutes of incubation at 37degree C possible cold rbc agglutinationPerformed By: #### DIFF, CBCAD #### [place] [address] Ph. [phone]/100 WBC (Bld)6 %Iqu83-20LlvgaftChildren's Hospital for Rehabilitation Comment on above:Order Comment: resuts after 30 minutes of incubation at 37degree C possible cold rbc agglutinationPerformed By: #### DIFF, CBCAD #### [place] [address] Ph. [phone] (RBC) [Entitic mass]31.3 vuNkhypu50.0-35.0Park[facility] HospitalComment on above:Order Comment: resuts after 30 minutes of incubation at 37degree C possible cold rbc agglutinationPerformed By: #### DIFF, CBCAD #### [place] [address] Ph. [phone] (RBC) [Mass/Vol]34.3 g/tZSwuvum22.0-36.0[facility] HospitalComment on above:Order Comment: resuts after 30 minutes of incubation at 37degree C possible cold rbc agglutinationPerformed By: #### DIFF, CBCAD #### [place] [address] Ph. [phone] (RBC) [Entitic vol]91.1 tHIlenty74.0-100.0Parkwood HospitalComment on above:Order Comment: resuts after 30 minutes of incubation at 37degree C possible cold rbc agglutinationPerformed By: #### DIFF, CBCAD #### [place] [address] Ph. [phone] (Bld) [#/Vol]0.8 10*3/uLNormal0.3-1.0[facility] HospitalComment on above:Order Comment: resuts after 30 minutes of incubation at 37degree C possible cold rbc agglutinationPerformed By: #### DIFF, CBCAD #### [place] [address] Ph. [phone]/100 WBC (Bld)7 %Normal1-15[facility] Comment on above:Order Comment: resuts after 30 minutes of incubation at 37degree C possible cold rbc agglutinationPerformed By: #### DIFF, CBCAD #### [place] [address] Ph. [phone] (Bld) [#/Vol]9.8 10*3/uLHigh1.8-7.7WChildren's Hospital for RehabilitationComment on above:Order Comment: resuts after 30 minutes of incubation at 37degree C possible cold rbc agglutinationPerformed By: #### DIFF, CBCAD #### [place] [address] Ph. [phone]/100 WBC (Bld)84 %Maqe03-50IuuiiyjChildren's Hospital for Rehabilitation Comment on above:Order Comment: resuts after 30 minutes of incubation at 37degree C possible cold rbc agglutinationPerformed By: #### DIFF, CBCAD #### [place] [address] Ph. [phone] mean volume (Bld) [Entitic vol]10.1 fLNormal9.4-12.3 [facility] HospitalComment on above:Order Comment: resuts after 30 minutes of incubation at 37degree C possible cold rbc agglutinationPerformed By: #### DIFF, CBCAD #### [place] [address] Ph. [phone] (Bld) [#/Vol]180 10*3/xSWntyoa870-666KctwrmwChildren's Hospital for RehabilitationComment on above:Order Comment: resuts after 30 minutes of incubation at 37degree C possible cold rbc agglutinationPerformed By: #### DIFF, CBCAD #### [place] [address] Ph. [phone] (Bld) [#/Vol]4.38 10*6/uLLow4.70-6.10WChildren's Hospital for RehabilitationComment on above:Order Comment: resuts after 30 minutes of incubation at 37degree C possible cold rbc agglutinationPerformed By: #### DIFF, CBCAD #### [place] [address] Ph. [phone] (Bld) [#/Vol]11.6 10*3/uLHigh3.7-11.0WChildren's Hospital for RehabilitationComment on above:Order Comment: resuts after 30 minutes of incubation at 37degree C possible cold rbc agglutinationPerformed By: #### DIFF, CBCAD #### [place] [address] Ph. [phone] Metabolic Panelon 09-12-9370Ophuvfd [Mass/Vol]3.6 g/dLNormal3.5-5.0WChildren's Hospital for RehabilitationComment on above:Performed By: #### CMP #### [place] [address] Ph. [phone] [Catalytic activity/Vol]85 U/XLcsero80-305HfwbpesChildren's Hospital for RehabilitationComment on above:Performed By: #### CMP #### [place] [address] Ph. [phone] [Catalytic activity/Vol]70 U/LHigh0-50WChildren's Hospital for RehabilitationComment on above:Performed By: #### CMP #### [place] [address] Ph. [phone] [Catalytic activity/Vol]38 U/CDhqipm54-38QdtydwxChildren's Hospital for RehabilitationComment on above:Performed By: #### CMP #### [place] [address] Ph. [phone] [Mass/Vol]0.9 mg/dLNormal0.2-1.3WChildren's Hospital for RehabilitationComment on above:Performed By: #### CMP #### [place] [id number] Ph. [phone] [Mass/Vol]8.9 mg/dLNormal8.4-10.2WChildren's Hospital for RehabilitationComment on above:Performed By: #### CMP #### [address] [address] Ph. [phone] [Moles/Vol]102 mmol/YPvklqb43-677RxsppvpParkwood HospitalComment on above:Performed By: #### CMP #### [address] [address] Ph. [phone] [Moles/Vol]25 mmol/QZideqk20-49LiptuhoChildren's Hospital for Rehabilitation Comment on above:Performed By: #### CMP #### [address] [address] Ph. [phone] [Mass/Vol]1.02 mg/dLNormal0.66-1.25Parkwood HospitalComment on above:Performed By: #### CMP #### [address] [address] Ph. [phone]/1.73 sq M.predicted among non-blacks MDRD (S/P/Bld) [Vol rate/Area]73 mL/min/{1.73_m2}Normal>60Parkwood HospitalComment on above: Result Comment: GFR calculated using CKD-EPI (2020) formula.\X0D0A\Stage 1 Kidney damage (e.g., protein in the urine) with normal GFR >=90\X0D0A\Stage 2 Kidney damage with mild decrease in GFR 60-89\X0D0A\Stage 3a Moderate decrease in GFR 45-59\X0D0A\Stage 3b Moderate decrease in GFR 30-44\X0D0A\Stage 4 Severe reduction in GFR 15-29\X0D0A\Stage 5 Kidney failure <15Performed By: #### CMP #### [address] [address] Ph. [phone] [Mass/Vol]103 mg/zBVdea81-907DujqdkwParkwood Hospital Comment on above:Performed By: #### CMP #### [place] [id number] Ph. [phone] [Moles/Vol]4.5 mmol/LNormal3.6-5.0Parkwood HospitalComment on above:Performed By: #### CMP #### [place] [address] Ph. [phone] [Mass/Vol]6.8 g/dLNormal6.3-8.2[facility] Comment on above:Performed By: #### CMP #### [place] [address] Ph. [phone] [Moles/Vol]135 mmol/OWlinki025-820MecrbcoChildren's Hospital for RehabilitationComment on above:Performed By: #### CMP #### [place] [address] Ph. [phone] nitrogen [Mass/Vol]23 mg/dLHigh9-20WChildren's Hospital for RehabilitationComment on above:Performed By: #### CMP #### [place] [address] Ph. [phone] REVIEWon 95-32-3271ZFWB REVIEWDIFFCOM: see commentsNormal Parkwood HospitalCompontiac general hospital on above:Order Comment: slide review rbc agglutination notedPerformed By: #### DIFF, CBCAD #### [place] [address] Ph. [phone] - Chemistry and Chemistry - challengeon 10-30-2022 Natriuretic peptide B (Bld) [Mass/Vol]93 pg/mL0 - 100 pg/mLWYANDOTAlbumin [Mass/Vol]3.6 g/dL3.5 - 5.0 g/dLWYANDOTALP (Bld) [Catalytic activity/Vol]85 U/L 38 - 126 U/LWYANDOTALT [Catalytic activity/Vol]70 U/LHigh0 - 50 U/LWYANDOTAST [Catalytic activity/Vol]38 U/L17 - 59 U/LWYANDOTBilirubin [Mass/Vol]0.9 mg/dL0.2 - 1.3 mg/dLWYANDOTCalcium [Mass/Vol]8.9 mg/dL8.4 - 10.2 mg/dLWYANDOTChloride [Moles/Vol]102 mmol/LWYANDOTCO2 [Moles/Vol]25 mmol/LWYANDOTCreatinine [Mass/Vol] 1.02 mg/dL0.66 - 1.25 mg/dLWYANDOTGlucose [Mass/Vol]103 mg/rRHwlf26 - 100 mg/dL WYANDOTPotassium [Moles/Vol]4.5 mmol/LWYANDOTProtein [Mass/Vol]6.8 g/dL6.3 - 8.2 g/dLWYANDOTSodium [Moles/Vol]135 mmol/LWYANDOTUrea nitrogen (BldV) [Mass/Vol]23 mg/dLHigh9 - 20 mg/dLWYANDOTLaboratory - Hematology and Cell countson 54-59-7206Qfikjvpmy (Bld) [#/Vol]0.0 10*3/uLWYANDOTBasophils/100 WBC (Bld)0 %0 - 1 %WYANDOTEosinophils/100 WBC (Bld)2 %0 - 5 %WYANDOTErythrocyte distribution width (RBC) [Ratio]13.8 %11.5 - 14.5 %WYANDOTHematocrit (Bld) [Volume fraction] 39.9 %Low42.0 - 52.0 %WYANDOTHemoglobin (Bld) [Mass/Vol]13.7 g/dL13.5 - 17.5 g/dLWYANDOTLymphocytes/100 WBC (Bld)6 %Low20 - 40 %WYANDOTMCH (RBC) [Entitic mass]31.3 pg27.0 - 35.0 pgWYANDOTMCHC (RBC) [Mass/Vol]34.3 g/dL32.0 - 36.0 g/dL WYANDOTMCV (RBC) [Entitic vol]91.1 fL80.0 - 100.0 fLWYANDOTMonocytes/100 WBC (Bld)7 %1 - 15 %WYANDOTNeutrophils/100 WBC (Bld)84 %High50 - 70 %WYANDOTPlatelet mean volume (Bld) [Entitic vol]10.1 fL9.4 - 12.3 fLWYANDOTPlatelets (Bld) [#/Vol]180 10*3/uLWYANDOTRBC (Bld) [#/Vol]4.38 10*6/uLLowWYANDOTWBC (Bld) [#/Vol]11.6 10*3/uLHighWYANDOTLaboratory - Microbiology and Antimicrobial susceptibilityon 36-18-5740JDNP-CoV-2 (COVID-19) RNA OREN+probe Ql (Unsp spec)Not detectedNot DetectedWYANDOTNo Panel Informationon [id number] by PCR Not detectedNot DetectedWYANDOTBordetella Parapertussis ([id number])Not detectedNot DetectedWYANDOTBordetella Parapertussis (ptxP)Not detectedNot DetectedWYANDOT Chlamydia pneumoniae By PCRNot detectedNot DetectedWYANDOTCoronavirus 229E PCR Not detectedNot DetectedWYANDOTCoronavirus HKU1 PCRNot detectedNot Detected WYANDOTCoronavirus NL63 by PCRNot detectedNot DetectedWYANDOTCoronavirus OC43 by PCRNot detectedNot DetectedWYANDOTHuman Metapneumovirus PCRNot detectedNot DetectedWYANDOTHuman Rhinovirus/Enterovirus by PCRNot detectedNot Detected WYANDOTInfluenza A by PCRNot detectedNot DetectedWYANDOTInfluenza B by PCRNot detectedNot DetectedWYANDOTMycoplasma pneumoniae by PCRNot detectedNot Detected WYANDOTParainfluenza Virus 1 by PCRNot detectedNot DetectedWYANDOTParainfluenza Virus 2 by PCRNot detectedNot DetectedWYANDOTParainfluenza Virus 3 by PCRNot detectedNot DetectedWYANDOTParainfluenza Virus 4 by PCRNot detectedNot Detected WYANDOTRSV by PCRNot detectedNot DetectedWYANDOTWYANDOTDiff Commentsee comments WYANDOTslide review rbc agglutination notedWOHIOHEALTH VAN WERT HOSPITALWADVENTHEALTH [facility]VILLE Eosinophils Absolute0.2WYANDOTInterpretation and review of laboratory results AbnormalWYANDOTLymphocytes Absolute0.7LowWYANDOTMonocytes Absolute0.8WYANDOT Neutrophils Absolute9.8HighWYANDOTresuts after 30 minutes of incubation at 37degree C possible cold rbc agglutinationWOHIOHEALTH VAN WERT HOSPITALWBAN[facility] WESTDOTWBANNER REHABILITATION HOSPITAL WESTDOT 1. Questionable left infrahilar infiltrate. 2. Slight bibasilar atelectasis. 3. Chronic changes and findings of COPD. [facility] CONSOLIDATEDEXAM: XR CHEST PORTABLE HISTORY: TECH NOTES: Cough [...] region. Report electronically signed by: Dr. Dashawn DaiRIVER [facility]LEY [facility] ALIDASilkDashawn, DO - 10/30/2022 EXAM: XR CHEST PORTABLE [...] 3. Chronic changes and findings of COPD. [employer] Phone: GFR, Wmjysewyc98- PINFWYANDOTComment on above: GFR calculated using CKD-EPI (2020) formula. Stage 1 Kidney damage (e.g., protein in the urine) with normal GFR >=90 Stage 2 Kidney damage with mild decrease in GFR 60-89 Stage 3a Moderate decrease in GFR 45-59 Stage 3b Moderate decrease in GFR 30-44 Stage 4 Severe reduction in GFR 15-29 Stage 5 Kidney failure <15 Interpretation and review of laboratory resultsAbnormalWADVENTHEALTH HENDERSONVILLEWECU HEALTH BERTIE HOSPITALTRadiology Study observation (narrative)[facility] Work Phone: No Panel InformationOrdered By: Dashawn Dai on 49-76-8465JEWPFBW Work Phone: Respiratory Panelon 61-99-7793CzexrayxsoUcp detected NormalNot DetectedParkwood HospitalComment on above:Performed By: #### RESPAN #### [address] [address] Ph. [phone] Parapertussis ([id number])Not detectedNormalNot Detected Parkwood HospitalComment on above:Performed By: #### RESPAN #### [address] [address] Ph. [phone] Parapertussis (ptxP)Not detectedNormalNot Detected Parkwood HospitalComment on above:Performed By: #### RESPAN #### [address] [address] Ph. [phone] PneumoniaeNot detectedNormalNot DetectedWChildren's Hospital for RehabilitationComment on above:Performed By: #### RESPAN #### [address] [address] Ph. [phone] 229ENot detectedNormalNot DetectedWChildren's Hospital for RehabilitationComment on above:Performed By: #### RESPAN #### [address] [address] Ph. [phone] VOC9Xva detectedNormalNot DetectedWChildren's Hospital for RehabilitationComment on above:Performed By: #### RESPAN #### [address] [address] Ph. [phone] GZ46Msv detectedNormalNot DetectedWChildren's Hospital for RehabilitationComment on above:Performed By: #### RESPAN #### [address] [address] Ph. [phone] KX37Rwg detectedNormalNot DetectedWChildren's Hospital for RehabilitationComment on above:Performed By: #### RESPAN #### [address] [address] Ph. [phone]-2 RPNot detectedNormalNot DetectedWChildren's Hospital for Rehabilitation Comment on above:Performed By: #### RESPAN #### [address] [address] Ph. [phone] MetapneumovirusNot detectedNormalNot DetectedWChildren's Hospital for RehabilitationComment on above:Performed By: #### RESPAN #### [address] [address] Ph. [phone] Rhinovirus/EnterovirusNot detectedNormalNot Detected Parkwood HospitalComment on above:Performed By: #### RESPAN #### [address] [address] Ph. [phone] ANot detectedNormalNot DetectedWChildren's Hospital for RehabilitationComment on above:Performed By: #### RESPAN #### [address] [address] Ph. [phone] BNot detectedNormalNot DetectedWChildren's Hospital for RehabilitationComment on above:Performed By: #### RESPAN #### [address] [address] Ph. [phone] PneumoniaeNot detectedNormalNot DetectedWChildren's Hospital for RehabilitationComment on above:Performed By: #### RESPAN #### [address] [address] Ph. [phone] Virus 1Not detectedNormalNot DetectedWChildren's Hospital for RehabilitationComment on above:Performed By: #### RESPAN #### [address] [address] Ph. [phone] Virus 2Not detectedNormalNot DetectedWChildren's Hospital for RehabilitationComment on above:Performed By: #### RESPAN #### [address] [address] Ph. [phone] Virus 3Not detectedNormalNot DetectedWChildren's Hospital for RehabilitationComment on above:Performed By: #### RESPAN #### [address] [address] Ph. [phone] Virus 4Not detectedNormalNot DetectedWChildren's Hospital for RehabilitationComment on above:Performed By: #### RESPAN #### [address] [address] Ph. [phone] Syncytial VirusNot detectedNormalNot DetectedWChildren's Hospital for RehabilitationComment on above:Performed By: #### RESPAN #### [address] [address] Ph. [phone] CHEST PORTABLEon 43-58-4583YI CHEST PORTABLERADRPT EXAM: XR CHEST PORTABLE HISTORY: TECH NOTES: [...] Signed by: Dashawn Dai DO 10/30/22 Final resultNoGuernsey Memorial HospitalXR Chest 2 Views*on 45-12-1174FX Chest 2 Views*Findings: Median sternotomy. Cardiopericardial silhouette normal. Aorta calcified and tortuous. Pulmonary vasculature normal. Lungs hyperinflated. Scarring left lung base. Mild blunting right costophrenic angle. IMPRESSION: Small right pleural effusion versus pleural thickening. Emphysema. Report reported and signed by Joe Davis on 10/27/2022 1621NormalNortreunion rehabilitation hospital peorian [facility] SpecialistCreatinine and Glomerular filtration rate.predicted panel (S/P/Bld)Ordered By: Cristian Beaver on 87-53-5027Iqowiggyhv [Mass/Vol]1.16 mg/dL0.64-1.27Tr[facility] Health SystemEstimated glomerular filtration rate (GFR) non- AmericanOrdered By: Cristian Beaver on 64-13-4725YJY/1.73 sq M.predicted among non-blacks MDRD (S/P/Bld) [Vol rate/Area]60 mL/Min [facility] Health SystemNo Panel InformationOrdered By: Cristian Beaver on 80-42-1154Nryzzdnkl GFR ()> 60 mL/MinTrinity Health SystemComment on above:GFR estimated reference range: According to KDOQI guidelines, <60 ml/min/1.73m2 is sufficient todiagnose a patient with chronic kidney disease.Pharmacy Creatinine Clearance (Chem64.62[facility] Memorial Hospitalerum or plasma urea nitrogen measurement (mass/volume)Ordered By: Cristian Beaver on 16-08-6732Gein nitrogen [Mass/Vol]14 mg/dL9-[facility] Health SystemCOVID-19, MolecularOrdered By: Freddie Avila on 61-09-8876KNHV-CoV-2 (COVID-19) RNA OREN+probe Ql (Resp)Not detectedNot Detected [facility] Angiogram Abdominal Aorta With Lower Extremityon 04-15-2022 [...] 5. Chronic findings including severe pancolonic diverticulosis. NELYD/Codek[employer] Workstation ID: [id number] RISEXAMINATION: CT ANGIOGRAM ABDOMINAL AORTA WITH LOWER EXTREMITY [...] using automated exposure control and/or adjustment of mAand/or kV according to patient size and/or use [...] common femoral artery and profunda. The left [place] SFA is occluded with extension through the entire length of the stented left superficial femoralartery. The patient appears to have undergone a left common femoral to tibioperoneal bypass and thebypass graft is intact. Below the level of the distal anastomosis, there is continuous flow in the peroneal artery with no identified flow in the anterior posterior tibial arteries. Chad Zhu MD - 04/15/2022 EXAMINATION: CT ANGIOGRAM ABDOMINAL [...] using automated exposure control and/or adjustment of mAand/or kV according to patient size and/or use [...] common femoral artery and profunda. The left [place] SFA is occluded with extension through the entire length of the stented left superficial femoralartery. The patient appears to have undergone a left common femoral to tibioperoneal bypass and thebypass graft is intact. Below the level of [...] 5. Chronic findings including severe pancolonic diverticulosis. SZD/Codek[employer] Workstation ID: [id number] [facility] Angiogram Abdominal Aorta With Lower ExtremityOrdered By: Chad Lezama on 31-12-4557IfahGmlpft Work Phone: [phone]-QnH-2 (COVID-19) RNA OREN+probe Ql (Resp)Ordered By: Freddie Avila on 77-22-5119Jarbzbuejglaxp and review of laboratory results NormalOhioHealthThis test was performed under the FDA's Emergency [...] at the following links: For Healthcare Providers: https://www.fda.gov/media/041250/download For Patients: https://www.fda.gov/media/382020/downloadOhioHealthOhioHealthBasic metabolic 2000 panelon 69-42-7621Urpyw gap [Moles/Vol]16 mmol/L10 - 20 mmol/L OhioHealthCalcium [Mass/Vol]9.5 mg/dL8.4 - 10.2 mg/dLOhioHealthChloride [Moles/Vol]105 mmol/L98 - 108 mmol/LOhioHealthCreatinine [Mass/Vol]0.96 mg/dL 0.80 - 1.30 mg/dLOhioHealthGFR/1.73 sq M.predicted CKD-EPI (S/P/Bld) [Vol rate/Area]78- PINFOhioHealthComment on above:Estimated GFR was calculated using the 2020 CKD-EPI creatinine equation.Glucose [Mass/Vol]93 mg/dL65 - 99 mg/dL OhioHealthHCO3 [Moles/Vol]24 mmol/L21 - 32 mmol/LOhioHealthInterpretation and review of laboratory resultsNormalOhioHealthPotassium [Moles/Vol]4.2 mmol/L3.5 - 5.1 mmol/LOhioHealthSodium [Moles/Vol]141 mmol/L135 - 145 mmol/LOhioHealthUrea nitrogen [Mass/Vol]13 mg/dL8 - 25 mg/dLOhioHealthUrea nitrogen/Creatinine [Mass ratio]13.5 mg/mg10 - 20OhACMC [facility] has implemented the eGFR calculation approach that does not have a coefficient for race that conforms to the NKF-ASN Task Force Recommendations.[facility] SystemCB Auto Differentialon 56-03-2958Wbnnifocj (Bld) [#/Vol]0.03 10*3/uLOhioHealth Basophils/100 WBC (Bld)0.5 %OhioHealthEosinophils (Bld) [#/Vol]0.11 10*3/uL OhioHealthEosinophils/100 WBC (Bld)1.9 %OhioRiverview Health InstituteErythrocyte distribution width (RBC) [Entitic vol]13.7 %11.6 - 14.8 %FloridaHealthHematocrit (Bld) [Volume fraction]41.7 %41 - 53 %OhioHealthHemoglobin (Bld) [Mass/Vol]14.0 g/dL13.5 - 17.5 g/dLOhioHealthImmature granulocytes (Bld) [#/Vol]0.03 10*3/uLOhioHealth Immature granulocytes/100 WBC (Bld)0.50 %OhioHealthComment on above:The IG parameter is the percentage of metamyelocytes, myelocytes and promyelocytes. An immature granulocyte count (IG) of 1% or more suggests the possibility of infection, an IG count of 3% is very likely related to an infection. Interpretation and review of laboratory resultsAbnormalOhioHealthLymphocytes (Bld) [#/Vol]0.85 10*3/uLLowOhioHealthLymphocytes/100 WBC (Bld)14.9 %[facility] MCH (RBC) [Entitic mass]31.3 pg26 - 34 pgOhioHealthMCHC (RBC) [Mass/Vol]33.6 g/dL31 - 37 g/dLOhioHealthComment on above:Cold Agglutinin presentMCV (RBC) [Entitic vol]93.3 fL80 - 100 fLOhioHealthMonocytes (Bld) [#/Vol]0.66 10*3/uL OhioHealthMonocytes/100 WBC (Bld)11.6 %OhioHealthNeutrophils (Bld) [#/Vol]4.01 10*3/uLOhioHealthNeutrophils/100 WBC (Bld)70.6 %OhioRiverview Health InstituteNucleated RBC (Bld) [#/Vol]0.00 10*3/uLOhioHealthNucleated RBC/100 WBC (Bld) [Ratio]0.0 %[facility] Platelet mean volume (Bld) [Entitic vol]10.6 fL9.4 - 12.4 fLOhioHealthPlatelets (Bld) [#/Vol]179 10*3/uLOhioHealthRBC (Bld) [#/Vol]4.47 10*6/uLLowOhioHealthWBC (Bld) [#/Vol]5.69 10*3/uLOhioHealthOhioHealthCT Angiogram Abdominal Aorta With Lower Extremityon 72-37-4379Fpgihvxth Study observation (narrative)OhioHealthINR Coag (PPP) [Relative time]on 60-30-6060Trchgypmhoucnh and review of laboratory resultsNormalOOhioHealthealthPT Coag (PPP) [Time]13.7 sOhioHealthDuring the induction phase of oral anticoagulation, the INR may not reflect the anticoagulation stat us of the patient. Therapeutic ranges for INR's are: Most clinical situations: INR 2.0-3.0 Mechanical Prosthetic Valve: INR 2.5-3.5 Critical: INR >5.0OhioHealthOhioHealthLavender Topon 63-97-8605Pdnpm TubeHold for add-ons.OhioHealthComment on above:Auto resulted.Mint Green Topon 04-14-2022 Extra TubeHold for add-ons.OhioHealthComment on above:Auto resulted.MannyHealthNo Panel Informationon 68-40-3789Ivweu TubeHold for add-ons.OhioHealthComment on above:Auto resulted.OhioHealthOhioHealthPT/INRon 44-54-9507VEN Coag (PPP) [Relative time]1.1 {INR}0.8 - 1.1OhioHealthUS Doppler ankle/brachial indexon 76-95-8004Ecxcakp Info Name: TRISTIN POWELL Age: 82 years : 1940 Gender: Male Exam Date: 04/14/2022 9:45 PM Patient Status: Emergency Shower Doors And Panels Fabricator: Justyna Keita, INOCENCIO, RDMS Attending Physician: CARSON BROCK Indications I73.9 - Peripheral vascular disease, unspecified Procedure Description 77134 Limited bilateral noninvasive physiologic studies of upper [...] Finalized by Richard Proctor on 04/14/2022 10:23 PMFUJI SYNAPSE CV Richard Proctor, - 04/14/2022 Patient Info Name: TRISTIN POWELL Age: 82 years : 1940 Gender: Male Exam Date: 04/14/2022 9:45 PM Patient Status: Emergency Shower Doors And Panels Fabricator: Justyna Keita, INOCENCIO, RDMS Attending Physician: CARSON BROCK Indications I73.9 - Peripheral vascular disease, unspecified Procedure Description 18439 Limited bilateral noninvasive physiologic studies of upper [...] Proctor on 04/14/2022 10:[address] [facility] Study observation (narrative)[facility] Doppler ankle/brachial indexOrdered By: Richard Proctor on 50-80-4157PewyPhlwyw Work Phone: us Venous, Unilat, Lower Ext Righton 50-21-8928MA Venous, Unilat, Lower Ext RightHISTORY: Pain, swelling. FINDINGS: The deep venous system of the right lower extremity exhibits full compressibility and normal flow augmentation. These specifically include the common femoral, superficial femoral, and popliteal veins. No evidence of deep venous thrombosis is present. No cystic or soft tissue mass in the popliteal fossa. IMPRESSION: No deep venous thrombosis. Report reported and signed by Nabor Beard on 04/14/2022 1546NormalNoformerly morehead memorial hospitaln [facility] SpecialistCREATININEon 93-63-3826Mkrjidbrzl [Mass/Vol]1.32 mg/dL Critically high0.70-1.30The [facility] Main CampusComment on above:Performed By: #### CREA #### [facility] [address] [address] [address] Benedict PatelGFR-AF MALIAN>60Normal>=60The [facility] CampusComment on above:Performed By: #### CREA #### [facility] [address] [address] [address] Mcmullen ChangEGFR-NON AF MALIAN>60Normal>=60The [facility] CampusComment on above:Performed By: #### CREA #### [facility] [address] [place] [address] Dr. Mcmullen ChangCT CHEST WO W CONon 47-90-0585TO CHEST WO W CONEXAMINATION: CT CHEST WO W CON, 01/28/2022 8:39 AM EDT [...] Electronically authenticated by: MIKEY CALDWELL Date: 2022-01-28 17:14[facility] Auto Differentialon 37-26-4099Etpujlhad (Bld) [#/Vol]0.02 10*3/uLOhioHealthBasophils/100 WBC (Bld)0.5 %OhioHealthEosinophils (Bld) [#/Vol] 0.18 10*3/uLOhioHealthEosinophils/100 WBC (Bld)4.4 %OhioHealthErythrocyte distribution width (RBC) [Entitic vol]14.7 %11.6 - 14.8 %OhioHealthHematocrit (Bld) [Volume fraction]35.0 %Low41 - 53 %OhioHealthHemoglobin (Bld) [Mass/Vol] 12.1 g/dLLow13.5 - 17.5 g/dLOhioHealthImmature granulocytes (Bld) [#/Vol]0.01 10*3/uLOhioHealthImmature granulocytes/100 WBC (Bld)0.20 %OhioHealthComment on above:The IG parameter is the percentage of metamyelocytes, myelocytes and promyelocytes. An immature granulocyte count (IG) of 1% or more suggests the possibility of infection, an IG count of 3% is very likely related to an infection.Interpretation and review of laboratory resultsAbnormalOhioHealth Lymphocytes (Bld) [#/Vol]0.67 10*3/uLLowOhioHealthLymphocytes/100 WBC (Bld)16.4 %OhioHealthMCH (RBC) [Entitic mass]32.5 pg26 - 34 pgOhioHealthMCHC (RBC) [Mass/Vol]34.6 g/dL31 - 37 g/dLOhioHealthMCV (RBC) [Entitic vol]94.1 fL80 - 100 fLOhioHealthMonocytes (Bld) [#/Vol]0.61 10*3/uLOhioHealthMonocytes/100 WBC (Bld) 15.0 %OhioHealthNeutrophils (Bld) [#/Vol]2.59 10*3/uLOhioHealthNeutrophils/100 WBC (Bld)63.5 %OhioHealthNucleated RBC (Bld) [#/Vol]0.00 10*3/uLOhioHealth Nucleated RBC/100 WBC (Bld) [Ratio]0.0 %OhioHealthPlatelet mean volume (Bld) [Entitic vol]10.4 fL9.4 - 12.4 fLOhioHealthPlatelets (Bld) [#/Vol]119 10*3/uLLow OhioHealthRBC (Bld) [#/Vol]3.72 10*6/uLLowOhioHealthWBC (Bld) [#/Vol]4.08 10*3/uLLowOhioHealthOhioHealthBasic metabolic 2000 panelon 99-37-1611Ydnkc gap [Moles/Vol]13 mmol/L10 - 20 mmol/LOhioHealthCalcium [Mass/Vol]9.2 mg/dL8.4 - 10.2 mg/dLOhioHealthChloride [Moles/Vol]107 mmol/L98 - 108 mmol/LOhioHealth Creatinine [Mass/Vol]0.93 mg/dL0.80 - 1.30 mg/dLOhioHealthGFR/1.73 sq M.predicted CKD-EPI (S/P/Bld) [Vol rate/Area]76- PINFOhioHealthGlucose [Mass/Vol]89 mg/dL65 - 99 mg/dLOhioHealthHCO3 [Moles/Vol]25 mmol/L21 - 32 mmol/L [facility] City HospitalInterpretation and review of laboratory resultsNormalOhioHealth Potassium [Moles/Vol]4.3 mmol/L3.5 - 5.1 mmol/LOhioHealthSodium [Moles/Vol]141 mmol/L135 - 145 mmol/LOhioHealthUrea nitrogen [Mass/Vol]12 mg/dL8 - 25 mg/dL OhioHealthUrea nitrogen/Creatinine [Mass ratio]12.9 mg/mg10 - 20OhioHealthThe eGFR should be used for monitoring renal function only and not for medication dosing.[facility] DaytonioRiverview Health InstituteCBC Auto Differentialon 77-27-8819Fqndxbqpp (Bld) [#/Vol]0.02 10*3/uLOhioHealthBasophils/100 WBC (Bld)0.4 %OhioHealthEosinophils (Bld) [#/Vol]0.18 10*3/uLOhioHealthEosinophils/100 WBC (Bld)3.8 %[facility] Erythrocyte distribution width (RBC) [Entitic vol]15.0 %High11.6 - 14.8 % FloridaHealthHematocrit (Bld) [Volume fraction]41.6 %41 - 53 %[facility] City HospitalHemoglobin (Bld) [Mass/Vol]13.7 g/dL13.5 - 17.5 g/dLOhioHealthImmature granulocytes (Bld) [#/Vol]0.02 10*3/uLOhioHealthImmature granulocytes/100 WBC (Bld)0.40 %OhioRiverview Health Institute Comment on above:The IG parameter is the percentage of metamyelocytes, myelocytes and promyelocytes. An immature granulocyte count (IG) of 1% or more suggests the possibility of infection, an IG count of 3% is very likely related to an infection.Interpretation and review of laboratory resultsAbnormal OhioRiverview Health InstituteLymphocytes (Bld) [#/Vol]0.65 10*3/uLLowOhioHealthLymphocytes/100 WBC (Bld)13.7 %[facility] HospitalMCH (RBC) [Entitic mass]31.5 pg26 - 34 pgOhioHealthMCHC (RBC) [Mass/Vol]32.9 g/dL31 - 37 g/dLOhioHealthComment on above:Cold Agglutinin presentMCV (RBC) [Entitic vol]95.6 fL80 - 100 fLOhioHealthMonocytes (Bld) [#/Vol]0.57 10*3/uLOhioHealthMonocytes/100 WBC (Bld)12.0 %FloridaHealthNeutrophils (Bld) [#/Vol]3.32 10*3/uLOhioHealthNeutrophils/100 WBC (Bld)69.7 %[facility] Nucleated RBC (Bld) [#/Vol]0.00 10*3/uLOhioHealthNucleated RBC/100 WBC (Bld) [Ratio]0.0 %[facility] City HospitalPlatelet mean volume (Bld) [Entitic vol]10.9 fL9.4 - 12.4 fLOhioHealthPlatelets (Bld) [#/Vol]132 10*3/uLLowOhioHealthRBC (Bld) [#/Vol]4.35 10*6/uLLowOhioHealthComment on above:Peripheral smear reviewed manuallyWBC (Bld) [#/Vol]4.76 10*3/uLOhioHealthOhioHealthBasic metabolic 2000 panelon 85-65-5643Psakh gap [Moles/Vol]15 mmol/L10 - 20 mmol/LOhioHealthCalcium [Mass/Vol]8.4 mg/dL8.4 - 10.2 mg/dLOhioHealthChloride [Moles/Vol]108 mmol/L98 - 108 mmol/LOhioHealthCreatinine [Mass/Vol]1.08 mg/dL0.80 - 1.30 mg/dLOhioHealth GFR/1.73 sq M.predicted CKD-EPI (S/P/Bld) [Vol rate/Area]63- PINFOhioHealth Glucose [Mass/Vol]90 mg/dL65 - 99 mg/dLOhioHealthHCO3 [Moles/Vol]22 mmol/L21 - 32 mmol/LOhioHealthInterpretation and review of laboratory resultsNormal OhioHealthPotassium [Moles/Vol]4.1 mmol/L3.5 - 5.1 mmol/LOhioHealthSodium [Moles/Vol]141 mmol/L135 - 145 mmol/LOhioHealthUrea nitrogen [Mass/Vol]13 mg/dL8 - 25 mg/dLOhioHealthUrea nitrogen/Creatinine [Mass ratio]12.0 mg/mg10 - 20 OhioRiverview Health InstituteThe eGFR should be used for monitoring renal function only and not for medication dosing.[facility] Health DaytonioHealthCBC Auto Differentialon 01-19-2022 Basophils (Bld) [#/Vol]0.02 10*3/uLOhioHealthBasophils/100 WBC (Bld)0.4 % OhioHealthEosinophils (Bld) [#/Vol]0.11 10*3/uLOhioHealthEosinophils/100 WBC (Bld)2.1 %[facility] City HospitalErythrocyte distribution width (RBC) [Entitic vol]15.1 %High 11.6 - 14.8 %[facility] City HospitalHematocrit (Bld) [Volume fraction]36.8 %Low41 - 53 % OhioHealthHemoglobin (Bld) [Mass/Vol]12.4 g/dLLow13.5 - 17.5 g/dLOhioHealth Immature granulocytes (Bld) [#/Vol]0.01 10*3/uLOhioHealthImmature granulocytes/100 WBC (Bld)0.20 %OhioHealthComment on above:The IG parameter is the percentage of metamyelocytes, myelocytes and promyelocytes. An immature gran ulocyte count (IG) of 1% or more suggests the possibility of infection, an IG count of 3% is very likely related to an infection.Interpretation and review of laboratory resultsAbnormalOhioHealthLymphocytes (Bld) [#/Vol]0.79 10*3/uLLow OhioHealthLymphocytes/100 WBC (Bld)14.8 %OhioHealthMCH (RBC) [Entitic mass]31.4 pg26 - 34 pgOhioHealthMCHC (RBC) [Mass/Vol]33.7 g/dL31 - 37 g/dLOhioHealthMCV (RBC) [Entitic vol]93.2 fL80 - 100 fLOhioHealthMonocytes (Bld) [#/Vol]0.66 10*3/uLOhioHealthMonocytes/100 WBC (Bld)12.4 %OhioHealthNeutrophils (Bld) [#/Vol]3.75 10*3/uLOhioHealthNeutrophils/100 WBC (Bld)70.1 %OhioHealthNucleated RBC (Bld) [#/Vol]0.00 10*3/uLOhioHealthNucleated RBC/100 WBC (Bld) [Ratio]0.0 % OhioHealthPlatelet mean volume (Bld) [Entitic vol]10.7 fL9.4 - 12.4 fLOhioHealth Platelets (Bld) [#/Vol]115 10*3/uLLowOhioHealthRBC (Bld) [#/Vol]3.95 10*6/uLLow OhioHealthWBC (Bld) [#/Vol]5.34 10*3/uLOhioHealthOhioHealthCT Angiogram Abdominal Aorta With Lower Extremityon 01-19-2022 [...] is a consideration and clinical correlation is recommended.Other chronic non angiographic findings as described above. Workstation ID: [id number] RISEXAMINATION: CT ANGIOGRAM ABDOMINAL AORTA WITH LOWER EXTREMITY HISTORY: LLE severe erythema, warmth, not exactly fitting time-course for cellulitis, assess previous graft,hx RLE aneurysm Injury/Trauma or Illness?:Illness/Other How long [...] using automated exposure control and/or adjustment of mAand/or kV according to patient size and/or use [...] AORTA/BRANCH VESSELS: Moderate aortic calcification without aneurysm. Vowj-yk-wgcxmqee atherosclerosis involving the iliac vessels without aneurysm or significant stenosis. LLE: The left common femoral to tibioperoneal trunk bypass graft is patent. There is occlusion of the [place] left superficial femoral artery. Again seen is occlusion of the popliteal artery and occluded popliteal artery stent. The anterior tibial artery is occluded. Again seen is occlusion of the posterior to the artery along its proximal aspect with reconstitution in the foot via collaterals from the perennial artery. Peroneal artery remains widely patent providing the dominant blood supply tothe left foot. RLE: The right superficial femoral artery demonstrates moderate stenosis distally, stable. 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 Anterior to the arteries occluded at its origin. The posterior tibial artery is occluded. The peroneal artery is occluded proximally but reconstitutes and provides the dominant blood supply to the leftfoot. VEINS: Incompletely evaluated due to phase of [...] Incompletely evaluated due to beam hardening artifact. Matilda Medina MD - 01/19/2022 EXAMINATION: CT ANGIOGRAM ABDOMINAL AORTA WITH LOWER EXTREMITY HISTORY: LLE severe erythema, warmth, not exactly fitting time-course for cellulitis, assess previous graft,hx RLE aneurysm Injury/Trauma or Illness?:Illness/Other How long [...] using automated exposure control and/or adjustment of mAand/or kV according to patient size and/or use [...] AORTA/BRANCH VESSELS: Moderate aortic calcification without aneurysm. Sgvk-yh-llmcwmci atherosclerosis involving the iliac vessels without aneurysm or significant stenosis. LLE: The left common femoral to tibioperoneal trunk bypass graft is patent. There is occlusion of the [place] left superficial femoral artery. Again seen is occlusion of the popliteal artery and occluded popliteal artery stent. The anterior tibial artery is occluded. Again seen is occlusion of the posterior to the artery along its proximal aspect with reconstitution in the foot via collaterals from the perennial artery. Peroneal artery remains widely patent providing the dominant blood supply tothe left foot. RLE: The right superficial femoral artery demonstrates moderate stenosis distally, stable. 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 Anterior to the arteries occluded at its origin. The posterior tibial artery is occluded. The peroneal artery is occluded proximally but reconstitutes and provides the dominant blood supply to the leftfoot. VEINS: Incompletely evaluated due to phase of [...] is a consideration and clinical correlation is recommended.Other chronic non angiographic findings as described above. Workstation ID: [id number] [facility] HospitalRadiology [facility] observation (narrative)[facility] Aorta With Lower ExtremityOrdered By: Matilda Cheng on 53-79-0070WrixMdqiqr Work Phone: CT Chest Without Contraston 01-19-2022 1. New irregular solid 1.6 cm left lower lobe pulmonary nodule, that is suspicious for a developingprimary lung cancer. A PET-CT scan or tissue sampling is recommended. 2. Background emphysema, diffuse chronic inflammatory airways disease, focal bronchiectasis and volume loss in the right middle lobe/lingula, and chronic linear scarring in both lower lobes. Numerouscalcified granulomas are also again noted. No acute [...] 2017. Laura Polo, et al. January 2017. [employer] Workstation ID: [id number] RISEXAMINATION: CT CHEST WITHOUT CONTRAST - 01/19/2022 AT [...] since the prior studies. The central airways areclear. 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 The heart remains mildly enlarged, but unchanged. There is mild fatty infiltration of the interatrial septum. There is no pericardial effusion,pleural effusion, or pneumothorax. There is mild dilatation of the central pulmonary arteries. Moder ate-severe atherosclerotic changes are seen in the thoracic [...] hepatic parenchyma, compatible with mild fatty infiltration. Rajiv Zazueta MD - 01/19/2022 EXAMINATION: CT CHEST WITHOUT [...] since the prior studies. The central airways areclear. 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 The heart remains mildly enlarged, but unchanged. There is mild fatty infiltration of the interatrial septum. There is no pericardial effusion,pleural effusion, or pneumothorax. There is mild dilatation of the central pulmonary arteries. Moder ate-severe atherosclerotic changes are seen in the thoracic [...] pulmonary nodule, that is suspicious for a developingprimary lung cancer. A PET-CT scan or tissue sampling is recommended. 2. Background emphysema, diffuse chronic inflammatory airways disease, focal bronchiectasis and volume loss in the right middle lobe/lingula, and chronic linear scarring in both lower lobes. Numerouscalcified granulomas are also again noted. No acute [...] 2017. Laura Polo et al. January 2017. [employer] Workstation ID: [id number] [facility] HospitalRadiology Study observation (narrative)[facility] InstituteCT Chest Without ContrastOrdered By: Rajiv Oscar on 23-15-0472JyzyRflgck Work Phone: ecg 12 Leadon 60-85-4246Pwrusu Czwo11WPINelgHxmnsjT Mtdd-23fopfdblKmpsCcyzjgX-H Esbvbtjb457 msOhioHealthQ-T Tkjvhljv636 msOhioHealth QRS Nvswxmqu30 msOhioHealthQTC Calculation (Bezet)461 msOhioHealthR Axis39 degreesOhioHealthT Nchw96njigavuAvjuZuthimAdijkzsohsy Mpfv13KSTAiojKpjoigXxgjj rhythm with occasional Premature ventricular complexes Otherwise normal ECG Confirmed by Clark Donovan M.D. ([id number]) on 01/19/2022 10:38:16 AMMUSEOhioHealthEKGon 91-16-2898Kftoyme by an unspecified provider.[facility]River[facility] Health InstituteOhioHealthOrdered by an unspecified provider.[facility] DaytonioRiverview Health InstituteBasic metabolic 2000 panelon 01-18-2022 Anion gap [Moles/Vol]13 mmol/L10 - 20 mmol/LOhioHealthCalcium [Mass/Vol]9.2 mg/dL8.4 - 10.2 mg/dLOhioHealthChloride [Moles/Vol]103 mmol/L98 - 108 mmol/L OhioHealthCreatinine [Mass/Vol]1.10 mg/dL0.80 - 1.30 mg/dLOhioHealthGFR/1.73 sq M.predicted CKD-EPI (S/P/Bld) [Vol rate/Area]62- PINFOhioHealthGlucose [Mass/Vol]107 mg/oKPlfn78 - 99 mg/dLOhioHealthHCO3 [Moles/Vol]26 mmol/L21 - 32 mmol/LOhioHealthPotassium [Moles/Vol]4.2 mmol/L3.5 - 5.1 mmol/LOhioHealthSodium [Moles/Vol]138 mmol/L135 - 145 mmol/LOhioHealthUrea nitrogen [Mass/Vol]14 mg/dL8 - 25 mg/dLOhioHealthUrea nitrogen/Creatinine [Mass ratio]12.7 mg/mg10 - 20 [facility] Health InstituteThe eGFR should be used for monitoring renal function only and not for medication dosing.[facility] Auto Differentialon 92-17-4326Qnxtdzzit (Bld) [#/Vol]0.02 10*3/uLOhioHealthBasophils/100 WBC (Bld)0.3 %OhioHealthEosinophils (Bld) [#/Vol]0.14 10*3/uLOhioHealthEosinophils/100 WBC (Bld)2.1 %[facility] Erythrocyte distribution width (RBC) [Entitic vol]15.3 %High11.6 - 14.8 % [facility] HospitalHematocrit (Bld) [Volume fraction]39.2 %Low41 - 53 %[facility] Hemoglobin (Bld) [Mass/Vol]14.0 g/dL13.5 - 17.5 g/dLOhioHealthImmature granulocytes (Bld) [#/Vol]0.02 10*3/uLOhioHealthImmature granulocytes/100 WBC (Bld)0.30 %[facility] HospitalComment on above:The IG parameter is the percentage of metamyelocytes, myelocytes and promyelocytes. An immature granulocyte count (IG) of 1% or more suggests the possibility of infection, an IG count of 3% is very likely related to an infection.Interpretation and review of laboratory results AbnormalOhioHealthLymphocytes (Bld) [#/Vol]0.75 10*3/uLLowOhioHealth Lymphocytes/100 WBC (Bld)11.1 %[facility] HospitalMCH (RBC) [Entitic mass]33.3 pg26 - 34 pgOhioHealthMCHC (RBC) [Mass/Vol]35.7 g/dL31 - 37 g/dLOhioHealthMCV (RBC) [Entitic vol]93.1 fL80 - 100 fLOhioHealthMonocytes (Bld) [#/Vol]0.78 10*3/uL OhioHealthMonocytes/100 WBC (Bld)11.5 %OhioHealthNeutrophils (Bld) [#/Vol]5.05 10*3/uLOhioHealthNeutrophils/100 WBC (Bld)74.7 %OhioHealthNucleated RBC (Bld) [#/Vol]0.00 10*3/uLOhioHealthNucleated RBC/100 WBC (Bld) [Ratio]0.0 %[facility] Platelet mean volume (Bld) [Entitic vol]10.4 fL9.4 - 12.4 fLOhioHealthPlatelets (Bld) [#/Vol]150 10*3/uLOhioHealthRBC (Bld) [#/Vol]4.21 10*6/uLLowOhioHealthWBC (Bld) [#/Vol]6.76 10*3/uLOhioHealthOhioHealthCRP, Inflammationon 21-07-4328GWM [Mass/Vol]63.5 mg/LHigh0 - 10 mg/LOhioHealthECG 12 Leadon 58-32-8323Imvybp Jagruti Mcguire MD 01/18/2022 11:27 PM ECG 12 Lead Date/Time: 01/18/2022 11:27 PM Performed by: Mikey Mcguire MD Authorized by: Mikey Mcguire MD Interpreted by ED attending physician Rhythm: sinus rhythm BPM: 76 Ectopy: PVCs Conduction: conduction normal ST Segments: ST segments normal T Waves: T waves normal Clinical impression: non-specific ECGOhioHealthOhioHealthESR Westergren method (Bld) [Velocity]on 95-49-4274ZUW (Bld) [Velocity]18 mm/hOhioHealthInterpretation and review of laboratory resultsNormalOhiUTealAshtabula County Medical CenterioHealthGrey Topon 01-18-2022 Extra TubeHold for add-ons.FloridaHealthComment on above:Auto resulted.OhioHealthNo Panel Informationon 13-64-4916Tsith TubeHold for add-ons.FloridaHealthComment on above:Auto resulted.[facility] City HospitalInterpretation and review of laboratory results AbnormalOhioHealthOhioHealthPOC Venous Blood Gases with Full PanelOrdered By: Elana Chavez on 49-26-2432Kwqa excess Calc (BldV) [Moles/Vol]0.2 mmol/L-2 - 2 OhioHealthCalcium.ionized [Mass/Vol]4.7 mg/dL4.5 - 5.3 mg/dLOhioHealthChloride [Moles/Vol]104 mmol/L98 - 108 mmol/LOhioHealthCO2 (BldV) [Partial pressure]41.3 mm[Hg]OhioHealthCO2 [Moles/Vol]25 mmol/L21 - 32 mmol/LOhioHealthCreatinine [Mass/Vol]1.35 mg/dLHigh0.80 - 1.30 mg/eQEipdPickerCJZ74Xyo- PINFOhioHealth Glucose [Mass/Vol]98 mg/dL65 - 99 mg/dLOhioHealthHematocrit (Bld) [Volume fraction]42 %41 - 53 %OhioHealthHemoglobin (Bld) [Mass/Vol]14.4 g/dL13.5 - 17.5 g/dLOhioHealthInterpretation and review of laboratory resultsAbnormalOhioHealth Lactate (Bld) [Mass/Vol]1.0 mmol/L0.6 - 2 mmol/LOhioHealthOxygen (BldV) [Partial pressure]51 mm[Hg]HighOhioHealthOxygen saturation in Venous blood85.2 %High40 - 70 %OhioHealthpH (BldV)7.40 [pH]7.32 - 7.42OhioHealthPotassium [Moles/Vol]4.0 mmol/L3.5 - 5.1 mmol/LOhioHealthSodium [Moles/Vol]141 mmol/L135 - 145 mmol/L OhioHealthUrea nitrogen [Mass/Vol]14 mg/dL8 - 25 mg/dLOhioHealthThe eGFR should be used for monitoring renal function only and not for medication dosing. OhioHealthOhioHealthPink Topon 95-29-3112NeikOouxwdQD Ankle Left 3+ Views (Standard)on 23-72-5945VBLGWCIS/ Distal fibula ORIF. 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 No acute periosteal reaction. Severe tibiotalar osteoarthritis. Diffuse soft tissue edema about the remainder of the foot. No soft tissue gas. Vascular atherosclerotic soft tissue calcifications. Workstation ID: [id number] RISEXAMINATION: XR ANKLE LEFT 3+ VIEWS (STANDARD) 01/18/2022 9:01 pm HISTORY: ORDERING SYSTEM PROVIDED HISTORY: left ankle/stump cellulitis, r/o osteo, TECHNOLOGIST PROVIDED HISTORY: Illness/Other Reason for exam: left ankle/stump cellulitis, r/o osteo Cancer History: unk Surgery, RadiationHistory: YES Encounter Type: Unknown Additional signs and symptoms: unk ORDERING SYSTEM PROVIDED DIAGNOSIS CODES: COMPARISON: 01/18/2022 Mikey Winn MD - 01/18/2022 EXAMINATION: XR ANKLE LEFT [...] atherosclerotic soft tissue calcifications. Workstation ID: [id number] [facility] DaytonioRiverview Health InstituteRadiology Study observation (narrative)[facility] HospitalXR Tibia Fibula Left 2 Viewson 85-02-3995WCGUHZHD/ Distal fibular ORIF without evidence of hardware complication. No acute fracture identified. Tricompartmental osteophytes at the knee. No periosteal reaction. Moderate to severe tibiotalar osteoarthritis. Probable vascular stent in the popliteal fossa with several surrounding surgical clips. No soft tissue gas or obvious large fluid collection. Workstation ID: [id number] RISEXAMINATION: XR TIBIA FIBULA LEFT 2 VIEWS 01/18/2022 8:24 pm HISTORY: ORDERING SYSTEM PROVIDED HISTORY: infx r/o gas, TECHNOLOGIST PROVIDED HISTORY: Illness/Other Reason for exam: infx r/o gas Cancer History: unk Surgery, RadiationHistory: YES Encounter Type: Unknown Additional signs and symptoms: ORDERING SYSTEM PROVIDED DIAGNOSIS CODES: COMPARISON: 10/21/2019 Mikey Winn MD - 01/18/2022 EXAMINATION: XR TIBIA FIBULA [...] obvious large fluid collection. Workstation ID: [id number] [facility] HospitalRadiology Study observation (narrative)[facility]River[facility] Health InstituteXR Tibia Fibula Left 2 ViewsOrdered By: Mikey Huerta on 78-06-8456BowjJmebpm Work Phone: [facility] [phone] BAS0.0 10*3/uLNormal0.0-0.[address] [facility] Medical CenterComment on above:Result Comment: Testing performed at [place], [place] [address]Mpyjasyva By: #### ACBC #### Testing performed at [address] [address]IRJFERFQ EOS0.00 10*3/uLNormal0.0-0.7AL[facility] Comment on above:Performed By: #### ACBC #### Testing performed at [address] [address]DCHABSSY NEUTROPHIL COUNT8.7 10*3/uLHigh1.4-6.5ALouis Stokes [facility] VA Medical CenterComment on above:Performed By: #### ACBC #### Testing performed at [address] [address]Yhwetfwer/100 WBC (Bld)0.0 %Normal0.0-2.0[facility] Comment on above:Performed By: #### ACBC #### Testing performed at [address] [address]DZSIPBXCJ DIFFNormalALouis Stokes Cleveland VA Medical CenterComment on above: Performed By: #### ACBC #### Testing performed at [address] [address]Hffcphlygje/100 WBC (Bld)0.0 %Normal0.0-11.0[facility] Medical CenterComment on above:Performed By: #### ACBC #### Testing performed at [address] [address]Vjtvndkgtat (Bld) [#/Vol]0.40 10*3/uLLow1.2-3.4ALouis Stokes [facility] VA Medical CenterComment on above:Performed By: #### ACBC #### Testing performed at [address] [address]Qztolvizeuz/100 WBC (Bld)4.2 %Low20.0-55.0[facility] Comment on above:Performed By: #### ACBC #### Testing performed at [address] [address]Eeiayhoge (Bld) [#/Vol]0.9 10*3/uLHigh0.0-0.7ALou[facility] Medical CenterComment on above:Performed By: #### ACBC #### Testing performed at [address] [address]Xkhbvtvnb/100 WBC (Bld)8.9 %Normal0.0-10.0[facility] Comment on above:Performed By: #### ACBC #### Testing performed at [address] [address]Prrmpcvsybj/100 WBC (Bld)86.9 %High37.0-75.0[facility] Medical CenterComment on above:Performed By: #### ACBC #### Testing performed at [address] [address]Pthnjjamqfq distribution width (RBC) [Ratio]15.4 %High11.5-14.[address] [facility] Medical CenterComment on above:Performed By: #### ACBC #### Testing performed at [address] [address]Sjwxlktfoa (Bld) [Volume fraction]34.2 %Low42.0-52.0[facility] Vineland HospitalComment on above:Performed By: #### ACBC #### Testing performed at [place] [id number] (Bld) [Mass/Vol]11.7 g/dLLow14.0-18.0[facility] HospitalComment on above:Performed By: #### ACBC #### Testing performed at [address] [address]DXA (RBC) [Entitic mass]31.4 xqEngbsd46.0-35.0[facility] HospitalComment on above:Performed By: #### ACBC #### Testing performed at [address] [address]HTMI (RBC) [Mass/Vol]34.3 g/dOOuyqnn10.0-37.0[facility] HospitalComment on above:Performed By: #### ACBC #### Testing performed at [address] [address]FGB (RBC) [Entitic vol]91.6 xIEnnxaf79.0-100.0[facility] HospitalComment on above:Performed By: #### ACBC #### Testing performed at [address] [address]Fvgkjhsx mean volume (Bld) [Entitic vol]8.2 fLNormal7.4-11.0 [facility] HospitalComment on above:Result Comment: Testing performed at [place] [id number] By: #### ACBC #### Testing performed at [place] [address]Platelets (Bld) [#/Vol]127 10*3/rHMei912.0-400.0[facility] HospitalComment on above:Performed By: #### ACBC #### Testing performed at [address] [address]LIA (Bld) [#/Vol]3.73 10*6/uLLow4.0-6.1AL[facility] Comment on above:Performed By: #### ACBC #### Testing performed at [address] [address]XFS (Bld) [#/Vol]10.0 10*3/uLNormal3.6-11.0[facility] Comment on above:Performed By: #### ACBC #### Testing performed at [address] [address]FBEWV CORONAVIRUSon 14-61-8467IIUUZPZCLBflw test was performed using isothermal OREN and has been approved as Emergency Use Authorization (EUA) for the qualitative detection pfHGFJ-ByG-3 nucleic acid.[facility]byterian HospitalComment on above:Result Comment: Testing performed at [place] [address]Performed By: #### COVID #### Testing performed at [place] [id number]-CoV-2 (COVID-19) RNA OREN+probe Ql (Unsp spec)Not detected NormalNOT DETECTEDMercy Health St. Vincent Medical CenterComment on above:Result Comment: Negative results do not preclude SARS-CoV-2 infection and should not be used as thesole basis for treatment or other patient management [...] the patient is critically ill or clinically deteriorating.Performed By: #### COVID #### Testing performed at [place] [address]TYPE AND SCREEN CROSSMATCH CONVERTIBLEon 64-96-4774QAAZ AND SCREEN CROSSMATCH CONVERTIBLEWORKUP EXPIRES 07/18/2021,2359 ABO/RH(D) O POSITIVE ANTIBODY SCREEN NEGATIVE ARM BAND NUMBER [id number] Testing performed at [place], [place] [address] [facility] Medical CenterComment on above:Performed By: #### TSCC #### Testing performed at [address] [address]Efkkg Metabolic Panelon 73-38-1420Fgghjzj [Mass/Vol]9.6 mg/dL Normal8.5-10.6[facility] HospitalChloride [Moles/Vol]105 mmol/LNormal 98-107[facility] HospitalCO2 [Moles/Vol]29 mmol/PJdrjqh49-48Xiyuw [facility] HospitalCreatinine [Mass/Vol]0.99 mg/dLNormal0.70-1.30[facility] HospitalGlucose [Mass/Vol]92 mg/fYCozoec03-17Pqtbt [facility] HospitalPotassium [Moles/Vol]4.6 mmol/LNormal3.5-5.1[facility] [place] [facility] Hospitalodium [Moles/Vol] 142 mmol/MEvpkid802-167Cnzft [facility] HospitalUrea nitrogen (BldV) [Mass/Vol] 15 mg/dLNormal7.0-18.0[facility] HospitalUrea nitrogen/Creatinine [Mass ratio]15 mg/mgNormalMount Miami Valley HospitalCBC with Differentialon 05-27-2020 Basophils (Bld) [#/Vol]0.0 thou/mcLNormal0.0-0.2[facility] Basophils/100 WBC (Bld)0.7 %Normal0-3[facility] HospitalDifferential cell count method Nom (Bld)AUTOMATED DIFFERENTIALNormalMount [facility] Hospital Eosinophils (Bld) [#/Vol]0.0 thou/mcLNormal0.0-0.4[facility] Eosinophils/100 WBC (Bld)1.2 %Normal0-7Mount [facility] HospitalLymphocytes (Bld) [#/Vol]0.6 thou/mcLLow0.7-4.5Mount [facility] HospitalLymphocytes/100 WBC (Bld)18.3 %Logejk78-29Lsvej [facility] HospitalMonocytes (Bld) [#/Vol]0.5 thou/mcLNormal0.1-1.0[facility] HospitalMonocytes/100 WBC (Bld)13.2 %High 4-13Mount [facility] HospitalNeutrophils (Bld) [#/Vol]2.3 thou/mcLNormal1.5-7.8 [facility] CenterNeutrophils/100 WBC (Bld)66.6 %Ieretp34-84Dslcs [facility] HospitalErythrocyte distribution width (RBC) [Entitic vol]16.1 %High 11.7-15.0[facility] HospitalHematocrit (Bld) [Volume fraction]38.2 % Styqqd54.0-50.0[facility] HospitalHemoglobin (Bld) [Mass/Vol]13.6 g/dL Arpjfr78.5-17.0[facility] HospitalMCH (RBC) [Entitic mass]33.2 Picograms Viyqmr91.0-34.0[facility] HospitalMCHC (RBC) [Mass/Vol]35.6 g/dLNormal 32.0-36.0[facility] HospitalMCV (RBC) [Entitic vol]93.2 oMOnoosu05-95 [facility] Medical CenterPlatelet mean volume (Bld) [Entitic vol]8.6 fLNormal 7.5-11.2[facility] HospitalPlatelets (Bld) [#/Vol]179 thou/mcLNormal 140-415Mount [facility] HospitalComment on above:Result Comment: Verified by repeat analysisRBC (Bld) [#/Vol]4.10 x(10)6/mcLNormal3.80-5.60[facility] HospitalWBC (Bld) [#/Vol]3.5 thou/mcLLow4.0-10.5[facility] Comment on above:Result Comment: VERIFIED BY SLIDE REVIEWPartial Thromboplastin Time (aPTT)on 16-09-0234mASJ Coag (PPP) [Time]27.4 KblZmuxpn08.2-34.6[facility] HospitalProthrombin Timeon 56-48-9263KWB Coag (Bld) [Relative time] 1.1 {INR}NormalMount Miami Valley HospitalComment on above:Result Comment: DURING THE INDUCTION PHASE OF ORAL ANTICOAGULATION, THE INR MAY NOT REFLECT THE ANTICOAGULANT STATUS OF THE PATIENT. THERAPEUTIC RANGES FOR INR'S ARE: MOST CLINICAL SITUATIONS: INR 2.0-3.0 MECHANICAL PROSTHETIC VALVES: INR 2.5-3.5 CRITICAL: INR 5.0PT Coag (PPP) [Time]14.5 LnsMjfzeb55.9-14.6Mount [facility] HospitalUS DOPPLER CAROTIDon 44-66-5621Xjh-Invasive Vascular Patient: SHERRY Bazan [facility] Rec#: [id number] (Age): 1940(80y) Study Date: 03/16/2020 Room#: Type: Outpatient Sex: M Reading: Radha Su DO, INOCENCIO, RPVI, FSVM Referring: Mohsen Sarabia MD, RPVI Stock Cutter: Angela Giron RVT, RDAL Procedure Info: [id number]... Study Quality: Diagnosis: I65.23 Occlusion and stenosis of bilateral carotid arteries Carotid Duplex (Previous study 03/18/2019 ) Conclusions There was a 40-59% stenosis in the right internal carotid artery. T he right vertebral artery was patent with antegrade flow. Unchanged compared to prior study There was a 40-59% stenosis in the left internal carotid artery. The left vertebral artery was patent with antegrade flow. Progression of disease compared to prior study. Measurements Right Carotid PSV Name Value Units [...] 13:09:31 by: Radha Su DO, RVT, RPVI, FSVMOhioHealthInterface, Rad In Heartlab Xper Echopacs - 03/16/2020 1:20 PM EDT Non-Invasive Vascular Patient: SHERRY Jones Rec#: [id number] (Age): 1940(80y) Study Date: 03/16/2020 Room#: Type: Outpatient Sex: M Reading: Radha Su DO, RVT, NATANAEL, FSVM Referring: Mohsen Sarabia MD, NATANAEL Stock Cutter: Angela Giron RVT, RDMS Procedure Info: [id number]... Study Quality: Diagnosis: I65.23 Occlusion and stenosis of bilateral carotid arteries Carotid Duplex (Previous study 03/18/2019 ) Conclusions There was a 40-59% stenosis in the right internal carotid artery. The right vertebral artery was patent with antegrade flow. Unchanged compared to prior study There was a 40-59% stenosis in the left internal carotid artery. The left vertebral artery was patent with antegrade flow. Progression of disease compared to prior study. 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 Finding Grids Lower PVR Waveforms Right Left Ankle B B Transmet B _Key --------- B = Abnormal Toe PPG Waveforms [...] previous bypass graft procedure to the left poplitealartery on 09/07/2018. History CAD. Hyperlipidemia. Hypertension. PAD. 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 Electronically signed at 03/16/2020 13:08:20 by: Radha Su DO, RVT, NATANAEL, FSYVESOhioHealthInterface, Anton In Heartlab Xper Echopacs - 03/16/2020 1:20 PM EDT Non-Invasive Vascular Patient: SHERRY Bazan [facility] Rec#: [id number] (Age): 1940(80y) Study Date: 03/16/2020 Room#: Type: Outpatient Sex: M Reading: Radha Su DO, RVT, NATANAEL, FSVM Referring: Mohsen Sarabia MD, NATANAEL Stock Cutter: Angela Giron RVT, RDMS Procedure Info: 33764 Study Quality: Diagnosis: I70.25 Atherosclerosis of wy[place] arteries of other extremities with ulceration Lower Arterial Doppler (Previous study 10/09/2019 ) Conclusions Right ankle brachial index indicates moderate [...] in the 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 Finding Grids Lower PVR Waveforms Right Left [...] 13:08:20 by: Radha Su DO, INOCENCIO, RPLUIZA, FSVMOhioRiverview Health InstitutePatient Portal Messageon [id number] Portal Message--- --- --- --- --- --- --- --- --- From: Hospital, Patient Summary Visit To: TRISTIN POWELL Sent: 11/30/19 01:31:27 AM EDT Subject: New Results Available A summary regarding your recent visit is available in the Documents section of your Health Record.NormalMount Miami Valley HospitalCBCon 98-82-3930Jfrgaowpvqe distribution width (RBC) [Entitic vol]14.3 %Vmqmlo46.7-15.0[facility] HospitalHematocrit (Bld) [Volume fraction]33.8 %Low34.0-50.0[facility] HospitalHemoglobin (Bld) [Mass/Vol]11.8 g/vZOernyq91.5-17.0[facility] (RBC) [Entitic mass]31.4 DxbwrmqxxXcvvyp06.0-34.0[facility] HospitalMCHC (RBC) [Mass/Vol]35.0 g/kMYrxicy19.0-36.0[facility] HospitalMCV (RBC) [Entitic vol]89.8 rEAuzqqs29-83Fwijd [facility] Valley HospitalPlatelet mean volume (Bld) [Entitic vol]8.7 fLNormal7.5-11.2[facility] Platelets (Bld) [#/Vol]152 thou/ksUCfkkjb444-021Tyuec [facility] HospitalRBC (Bld) [#/Vol]3.77 x(10)6/mcLLow3.80-5.60Mount [facility] HospitalWBC (Bld) [#/Vol]10.2 thou/mcLNormal4.0-10.5Mount [facility] Valley HospitalOR Nursingon 22-30-9071EQ NursingCO NA OR Nursing Record Summary Primary Physician: Ramana Cason MD Finalized Date/Time: 11/29/19 11:47:30 Pt. Name: TRISTIN POWELL/Sex: 1940 Male Med Rec #: [id number] Physician: Ramana Cason MD Financial #: [id number] Pt. Type: I Room/Bed: Admit/Disch: 11/28/19 05:01:00 - Institution: [place] NA OR Case Times Entry 1 Patient Times Patient In Room 11/28/19 06:30:00 Patient Out Room 11/28/19 09:18:00 Surgical Times Start Time 11/28/19 07:05:00 Stop Time 11/28/19 09:05:00 Last Modified By: Mary Kate Baptiste RN 11/28/19 09:16:34 CO NA OR Case Attendees Entry 1 Entry 2 Entry 3 Case Attendee Oscar DIAZ , Ramana BROWER , Bne Samaniego MD , Nabor Role Performed Primary Surgeon Physician Epic Kaleidoscope Analyst Anesthesiologist Time In 11/28/19 06:30:00 11/28/19 06:55:00 [...] Quintana RN , Marichuy Montesinos Role Performed awning maker awning maker First Scrub Time In 11/28/19 06:30:00 11/28/19 [...] Last Modified By: Mary Kate Baptiste RN, RN , Mary Kate Danielle RN 11/28/19 09:16:36 11/28/19 09:16:36 11/28/19 09:16:36 Entry 10 Entry 11 Entry 12 Case Attendee Case, Attendee Other Yang Zuniga MD , Ramana Ontiveros Role Performed Parts Washer Explosive Ordnance Technician Surgeon Time In 11/28/19 07:02:00 11/28/19 07:20:00 11/28/19 08:13:00 Time Out 11/28/19 09:18:00 11/28/19 08:16:00 11/28/19 08:32:00 Procedure Fusion Cervical Post Fusion Cervical Post Fusion Cervical Post with with with Decompression(Cervical) Decompression(Cervical) Decompression(Cervical) Attendee Comment pat hurto Relief Reason Last Modified By: Mary Kate Baptiste RN, RN , Mary Kate Danielle RN 11/28/19 09:16:36 11/28/19 09:16:36 11/28/19 09:16:36 CO NA OR General Case Ethanol Maintenance Mechanic 1 OR CO NA 01 ASA Class [...] SILICONE Present on Arrival? No NATALIE 15FR [id number] Location POSTERIOR NECK Inserted By Ben Saha [...] OR BED WITH Oscar DIAZ , Ramana Ontiveros HARRIET FRAME; ARMS Ben Saha TUCKED AT [...] Pneumatic Compression IPC Size Knee Bariatric No ANA Hose Foot Pump Last Modified By: Mary [...] UNITS 1 VIAL POWDER VANCOCIN POWDER TOPICAL 46408-001-30 Medication Dosage 1 sheet 5000 UNITS 1 g Route of TOPICAL TOPICAL TOPICAL Administration Meds Administered By Ramana Cason MD, MD , Rmaana BROWER , Ben Huerta Medication Comment Last [...] by Surgeon Implant Identification Description Lineum plugs [id number] Lineum screw 3.5x14mm BETHEL LINEUM PRE-CURVED Type1 Occipital [id number] CERVICAL [id number] Evaporator HÉCTOR BIOMET SPINE HÉCTOR BIOMET SPINE BIOM[employer] Catalog Number [id number] Lot Number na na na Serial Number [...] RN 11/28/19 09:16 Karen Giron RN 11/29/19 11:47NormalUniversity Hospitals Geauga Medical CenterPatient Summaryon 11-85-6530Ajrjphy SummaryPATIENT DISCHARGE INSTRUCTIONS If you are having an emergency and are not able to reach your physician, CALL 911 or go to the nearest emergency room and take this document with you. [facility] 11/29/19 11:09 [address] [place] [address] PATIENT INFORMATION Name: TRISTIN POWELL [place] Address: [address] [address] Age: 79 Years Phone: [phone] : 1940 12:00 MRN: [facility][id number] Sex: Male Race: White Ethnicity: Not Hispan/Lat Admitted From: Clinic or [facility] Medical Service: Orthopedic Surgery Nurse Unit/Bed: [...] Date: Ramana Cason MD Orthopaedic Surg [address] [facility] [id number] (1) Two Weeks Comment: Call for an Appointment Provider: Specialty: Address: Date: Flash Lovelace MD [place] [phone] (1) Follow-up as needed ALLERGIES: No Known [...] doses are changed, or new medications (including cgre-zuh-adchwht products) are added. Ask your doctor if [...] Medications Freetext Medication NEW PRESCRIPTIONS: -OXYCODONE. Comment UPDATED MEDICATIONS None UNCHANGED MEDICATIONS Other Medications aspirin 81 Milligram once a day. Comment atorvastatin (atorvastatin 40 mg oral tablet) 1 Tab(s) By Mouth once a day. Comment gabapentin (gabapentin 100 mg oral capsule) 1 Capsule By Mouth Twice a day. Comment losartan (losartan 25 mg oral tablet) 1 Tab(s) By Mouth once a day. Comment metoprolol (metoprolol tartrate 50 mg oral tablet) 1 Tab(s) By Mouth Twice a day. Comment omeprazole (PriLOSEC 20 mg oral enteric coated capsule) 1 Capsule By Mouth once a day. prn. Comment rivaroxaban (Xarelto 2.5 mg oral tablet) 1 Tab(s) By Mouth Twice a day. Comment STOP TAKING THESE MEDICATIONS None DO NOT TAKE UNTIL YOU TALK TO YOUR DOCTOR None NON-MEDICATION PRESCRIPTION SCHEDULING PHONE NUMBER: SELECTED LAB RESULTS Lab Result Order Date Hemoglobin 11.8 gm/dL [...] are in a mental health crisis, or havingthoughts of suicide, please call the nationwide suicide hotline, anytime day or night, at 8-081-840-KMNI. Important information about accessing your health information through the [place] [employer] patient portal If you initiated the self-registration process for [employer] during your stay, please check your personal email for an invitation to enroll in [employer] and complete the steps outlined in the email. If you would prefer to enroll while in the hospital, ask a member of your care team. We would be happy to assist you. If you have already enrolled in [employer], go to [email or web address] to login and access your health information. Thank you for choosing [employer]. PATIENT EDUCATION Incentive Spirometer An incentive spirometer [...] this could cause you to pass out. Takeyour time so you do not get dizzy [...] 12/25/2007 Document Revised: 09/04/2015 Document Reviewed: 03/23/2015 [employer] Interactive Patient Education ?2016 [employer]. Venous Thromboembolism, Prevention A venous thromboembolism is [...] If you smoke, talk to your caregiver onhow to quit. ???Eat plenty of fruits and [...] you. ???Wear special stockings (compression stockings or ANA hose) if your caregiver prescribes them. ???Wearing [...] the body to increase clotting factors in theblood. Due to the size of the bones involved in hip and knee replacements, there is a higher risk of blood clotting than other orthopedic surgeries. ???There is a risk of clotting for up to 4?6 weeks after surgery. Flying or traveling long distances can increase your risk of a clot. As a result, those who travel long distances may need additionalpreventive measures after their procedure. ???Drink only non-alcoholic [...] 08/02/2010 Document Revised: 05/08/2013 Document Reviewed: 12/09/2015 [employer] Interactive Patient Education ?2016 [employer]. Preventing Constipation After Surgery Constipation is when [...] a bowel movement. ???Having hard, dry, or fhvsci-pxna-yyjjqf stools. ???Feeling full or bloated. ???Having pain in the lower abdomen. ???Not feeling relief after having a bowel movement. HOME CARE INSTRUCTIONS Diet ???Eat foods that have a lot of fiber. These include fruits, vegetables, whole grains, and beans. Limit foods high in fat and processed sugars. These include ukrainian fries, hamburgers, cookies, and candy. ???Take a fiber supplement as directed. If you are not taking a fiber supplement and think that youare not getting enough fiber from foods, talk to your health care provider about adding a fiber supplement to your diet. ???Drink clear fluids, especially water. Avoid drinking alcohol, caffeine, and soda. These can makeconstipation worse. ???Drink enough fluids to keep your urine clear or pale yellow. Activity ???After surgery, return to your normal activities slowly or when your health care provider says itis okay. ???Start walking as soon as you [...] softener, laxative, or fiber supplement. ???Only take ishb-lbq-stynkny or prescription medicines as directed by your [...] not had a bowel movement within 24?48 hoursafter using them. ???You have not had a [...] 12/09/2013 Document Revised: 09/04/2015 Document Reviewed: 12/09/2013 [employer] Interactive Patient Education ?2016 [employer] Pain Medicine Instructions HOW CAN PAIN MEDICINE AFFECT ME? You were given a prescription for pain medicine. This medicine may make you tired or drowsy and mayaffect your ability to think clearly. Pain medicine [...] not having pain, unless directed by your healthcare provider. ???You can take less than the [...] pain medicine, get rid of it or destroyit as directed by your health care provider. [...] while on pain medicine. Recording the times helpsyou to avoid an overdose. ???If your pain [...] liver damage. Acetaminophen is found in many xcbz-scd-ripjmnr (OTC) and prescription medicines. If you are [...] Reviewed: 06/18/2015 [employer] Interactive Patient Education ?2016 [employer] PATIENT DISCHARGE INSTRUCTION Signature Page for: TRISTIN POWELL Date/Time: 11/29/2019 11:09:09 A Clinician has explained the information on my discharge instructions and has provided me with a copy. My questions have been answered to my satisfaction. Patient Signature Date/Time Responsible Party Date/Time Relationship to Patient Clinician Signature Date/Time NormalMount Miami Valley HospitalTroponin Ion 99-52-2328Ckuefzjc I.cardiac [Mass/Vol]0.03 ng/mLNormal<0.06Mount [facility] HospitalMagnesium Levelon 87-67-8774Hmcjrtjyz [Mass/Vol]2.3 mg/dLNormal1.8-2.4[facility] PACU I Nursingon 57-91-3159LKED I NursingCO NA PACU I Nursing Record Summary Primary Physician: Ramana Cason MD Finalized Date/Time: 11/28/19 10:38:07 Pt. Name: TRISTIN POWELL/Sex: 1940 Male Med Rec #: [id number] Physician: Ramana Cason MD Financial #: [id number] Pt. Type: I Room/Bed: / Admit/Disch: 11/28/19 [...] Maxine Tripp RN RN Last Modified By: Bradley LIGHT , Richie Harrison RN 11/28/19 10:03:10 W 11/28/19 10:03:10 Finalized By: Richie Huerta RN Document Signatures Signed By: Richie Huerta RN 11/28/19 10:38NormalMount Miami Valley HospitalPreOp Nursingon 28-37-7224NxwVj NursingCO NA PreOp Nursing Record Summary Primary Physician: Ramana Cason MD Finalized Date/Time: 11/28/19 07:11:59 Pt. Name: SHERRYTRISTIN/Sex: 1940 Male Med Rec #: [id number] Physician: Ramana Cason MD Financial #: [id number] Pt. Type: I Room/Bed: / Admit/Disch: 11/28/19 [...] Signed By: Mary Kate Baptiste RN 11/28/19 07:11NormalMount Miami Valley HospitalTroponin Ion 11-66-9681Pdhickfs I.cardiac [Mass/Vol]ng/mLNormal<0.06Mount [facility] HospitalTroponin I.cardiac [Mass/Vol]ng/mLNormal<0.06[facility] Basic Metabolic Panelon 96-95-8072Onbmzzh [Mass/Vol]9.6 mg/dLNormal8.5-10.6Mount [facility] HospitalChloride [Moles/Vol]105 mmol/KRmqqgb78-157Ncltr [facility] HospitalCO2 [Moles/Vol]28 mmol/IEjqpjq59-67Xybvi [facility] Creatinine [Mass/Vol]1.12 mg/dLNormal0.70-1.30Mount [facility] HospitalGlucose [Mass/Vol]91 mg/nVZfhufo89-72Mekqq [facility] HospitalPotassium [Moles/Vol]4.9 mmol/LNormal3.5-5.1[facility] Hospitalodium [Moles/Vol]141 mmol/LNormal 136-145Mount [facility] Valley HospitalUrea nitrogen (BldV) [Mass/Vol]23 mg/dLHigh 7.0-18.0[facility] HospitalUrea nitrogen/Creatinine [Mass ratio]21 mg/mg NormalMount Miami Valley HospitalCBC with Differentialon 88-23-4155Bnikjsxxv (Bld) [#/Vol]0.0 thou/mcLNormal0.0-0.2Mount [facility] HospitalBasophils/100 WBC (Bld)0.9 %Normal0-3Mount [facility] HospitalDifferential cell count method Nom (Bld)AUTOMATED DIFFERENTIALNormalMount Miami Valley HospitalEosinophils (Bld) [#/Vol]0.1 thou/mcLNormal0.0-0.4Mount [facility] HospitalEosinophils/100 WBC (Bld)2.1 %Normal0-7Mount [facility] HospitalLymphocytes (Bld) [#/Vol]0.8 thou/mcLNormal0.7-4.5Mount [facility] HospitalLymphocytes/100 WBC (Bld)19.7 % Eqlfnu45-92Mwnxr Miami Valley HospitalMonocytes (Bld) [#/Vol]0.7 thou/mcLNormal 0.1-1.0Mount [facility] HospitalMonocytes/100 WBC (Bld)16.0 %High4-13Mount [facility] Valley HospitalNeutrophils (Bld) [#/Vol]2.5 thou/mcLNormal1.5-7.8Mount [facility] HospitalNeutrophils/100 WBC (Bld)61.3 %Nuhran88-38Naonf Miami Valley HospitalErythrocyte distribution width (RBC) [Entitic vol]14.2 %Normal 11.7-15.0Mount [facility] HospitalHematocrit (Bld) [Volume fraction]39.8 % Erlrrz71.0-50.0Mount [facility] HospitalHemoglobin (Bld) [Mass/Vol]13.8 g/dL Lwpkuj78.5-17.0Mount [facility] HospitalMCH (RBC) [Entitic mass]31.7 Picograms Ypecse74.0-34.0Mount [facility] HospitalMCHC (RBC) [Mass/Vol]34.6 g/dLNormal 32.0-36.0Mount [facility] HospitalMCV (RBC) [Entitic vol]91.6 xCKbqkcd14-34 [facility]auga Medical CenterPlatelet mean volume (Bld) [Entitic vol]8.2 fLNormal 7.5-11.2Mount [facility] HospitalPlatelets (Bld) [#/Vol]191 thou/mcLNormal 140-415Mount [facility] Valley HospitalRBC (Bld) [#/Vol]4.34 x(10)6/mcLNormal3.80-5.60 [facility] Medical CenterWBC (Bld) [#/Vol]4.1 thou/mcLNormal4.0-10.5Mount [facility] HospitalComment on above:Result Comment: VERIFIED BY SLIDE REVIEW Partial Thromboplastin Time (aPTT)on 34-77-5833gYYX Coag (PPP) [Time]28.5 Sec Zewasw82.2-34.6MOhio Valley HospitalProthrombin Timeon 70-16-3008NMT Coag (Bld) [Relative time]1.1 {INR}NormalMount Miami Valley HospitalComment on above: Result Comment: DURING THE INDUCTION PHASE OF ORAL ANTICOAGULATION, THE INR MAY NOT REFLECT THE ANTICOAGULANT STATUS OF THE PATIENT. THERAPEUTIC RANGES FOR INR'S ARE: MOST CLINICAL SITUATIONS: INR 2.0-3.0 MECHANICAL PROSTHETIC VALVES: INR 2.5-3.5 CRITICAL: INR 5.0PT Coag (PPP) [Time]14.5 FchCecdpy50.9-14.6MOhio Valley HospitalCT Angiogram Abdominal Aorta With Lower Extremityon 40-27-0491Vvlopm left femoral to tibioperoneal trunk bypass graft which bypasses an occluded [place] distal superficial femoral artery. 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 Peripheral arterial disease in the right lower extremity as detailed above, primarily infrapopliteal with single-vessel runoff to the right foot via the peroneal artery. Emphysema Coronary artery disease. Mild to moderate hiatal hernia. Workstation ID: [id number] EXAMINATION: CTA (Angiogram) OF THE ABDOMEN, PELVIS, [...] exposure control and/or adjustment of mA and/or kVaccording to patient size and/or use of iterative [...] artery:Single renal artery is present. There is xbiu-xs-lztbmimd, 50-70%, narrowing of the ostium of the left renal artery.. VIV: Plaque at the origin of the inferior mesenteric artery causes vessel narrowing.. CTA (angiogram) RIGHT LOWER EXTREMITY: Common iliac artery: Plaque causes mild, approximately 50%, narrowing of the proximal common iliac artery. Normal caliber. Internaliliac artery: Plaque causes intermittent vessel narrowing. Normal [...] This is the dominant supply to the rightfoot.. CTA (angiogram) LEFT LOWER EXTREMITY: Common iliac artery: Widely patent. Normal caliber. Int ernal iliac artery: Widely patent. Normal caliber. External iliac artery: Widely patent Common femoral artery: Widely patent Bypass graft: There is a common femoral to tibioperoneal trunk bypass graft which is widely patent. Profunda femoris artery: Widely patent Superficial femoral artery: There is occlusion of the wy[place] superficial femoral artery in its distal aspect Popliteal artery: Occluded. There is an occluded stent within the popliteal artery Anterior tibial artery: Occluded Tibioperoneal trunk: Widely patent Posterior tibial artery: Occluded at its proximal aspect. Reconstitution ofthe posterior tibial artery in the foot via collaterals from the peroneal artery. Peroneal artery: Widely patent. Dominant blood supply to the left foot.. CT ABDOMEN/PELVIS/LOWER EXTREMITIES: Lower chest: Dependent changes are present in the lung bases. There is emphysema.. There are coronary artery calcifications Liver: Homogeneous enhancement of the liver is present. The liver is normal in sizeand contour. There is no focal lesion. Gallbladder/bile [...] of the left foot at the Chopart joint.There is external fixation hardware in the left fibula. There is serpiginous sclerosis in the distal femur without aggressive features, bone island versus enchondroma. Moderate to severe degenerativechanges are present in the hips. There also degenerative changes in the spine.[facility] HospitalInterprov[facility], Rad In Kary Back - 10/21/2019 2:57 PM EST EXAMINATION: CTA [...] artery:Single renal artery is present. There is uawm-vz-jozsklfp, 50- 70%, narrowing of the ostium of the left [...] femoral artery: There is occlusion of the wy[place] superficial femoral artery in its distal aspect [...] Bowel is normal in caliber without evidence ofobstruction. There are multiple colonic diverticula without evidence [...] trunk bypass graft which bypasses an occluded [place] distal superficial femoral artery. 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 Peripheral arterial disease in the right lower extremity as detailed above, primarily infrapopliteal with single-vessel runoff to the right foot via the peroneal artery. Emphysema Coronary artery disease. Mild to moderate hiatal hernia. Workstation ID: [id number] Creatinineon 32-45-9211Zpaomullef [Mass/Vol] 1.1 mg/dL0.8 - 1.3 mg/dLOhioHealthInterpretation and review of laboratory resultsNormalOhioHealthUltrasound ankle / brachial indices extremity completeon 12-98-4209Kuy-Invasive Vascular Patient: SHERRY Bazan [facility] Rec#: [id number] (Age): 1940(79y) Study Date: 10/09/2019 Room#: Type: Outpatient Sex: M Reading: Nemo Conner MD, PhD, RVT Referring: Mohsen Sarabia MD, RPVI Stock Cutter: Andre Madrid RDCS/RVT Procedure Info: [id number] Study Quality: Lower Arterial Doppler: adequate Diagnosis: I73.9 Peripheral vascular disease, unspecified Lower Arterial Doppler Conclusions Right ankle brachial index indicates mild [...] in the 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 The procedure was explained to the patient. [...] 15:10:46 by: Nemo Conner MD, PhD, RVT [facility], Rad In Heartlab Xper Echopacs - 10/09/2019 4:01 PM EST Non- Invasive Vascular Patient: SHERRY Jones Rec#: [id number] (Age): 1940(79y) Study Date: 10/09/2019 Room#: Type: Outpatient Sex: M Reading: Nemo Conner MD, PhD, RVT Referring: Mohsen Sarabia MD, RPVI Stock Cutter: Andre Madrid RDCS/RVT Procedure Info: [id number] Study Quality: Lower Arterial Doppler: adequate Diagnosis: I73.9 Peripheral vascular disease, unspecified Lower Arterial Doppler Conclusions Right ankle brachial index indicates mild [...] in the 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 The procedure was explained to the patient. [...] 10/09/2019 15:10:46 by: Nemo Conner MD, PhD, RVTOhioHealthUltrasound duplex arterial leg lefton 40-99-9699Ypu-Invasive Vascular Patient: SHERRY Bazan [facility] Rec#: [id number] (Age): 1940(79y) Study Date: 10/09/2019 Room#: Type: Outpatient Sex: M Reading: Nemo Conner MD, PhD, RVT Referring: ALENA Stock Cutter: Andre Madrid RDCS/RVT Procedure Info: 23566 Study Quality: Graft Duplex: adequate Diagnosis: I73.9 Peripheral vascular disease, unspecified Graft Duplex Conclusions Left: Patent femoral to peroneal artery bypass graft with no evidence of hemodynamically significant stenosis. The procedure was explained to the patient. The patient voiced understanding. Measurements Left PSV Name Value Units EIA 151 cm/sec INDUSTRIAL YARD BRAKE COUPLER 115 cm/sec Left Graft #1 PSV Name Value Units Inflow Artery 76.8 cm/sec Prox Anastomosis 102 cm/sec Prox Graft 80.7 cm/sec Mid Graft 60.3 cm/sec Dist Graft 69.6 cm/sec Dist Anastomosis 44.1 cm/sec Outflow Artery 72.1 cm/sec History CAD. Hypertension. History Comments:Left transmetatarsal amputation. Electronically signed at 10/09/2019 15:14:54 by: Nemo Conner MD, PhD, T [facility], Rad In Heart[facility] - 10/09/2019 4:01 PM EST Non- Invasive Vascular Patient: SHERRY Bazan Med Rec#: [id number] (Age): 1940(79y) Study Date: 10/09/2019 Room#: Type: Outpatient Sex: M Reading: Nemo Conner MD, PhD, RVT [facility] Stock Cutter: Andre Madrid RDCS/RVT Procedure Info: [id number] Study Quality: Graft Duplex: adequate Diagnosis: I73.9 Peripheral vascular disease, unspecified Graft Duplex Conclusions Left: Patent femoral to peroneal artery bypass graft with no evidence of hemodynamically significant stenosis. The procedure was explained to the patient. The patient voiced understanding. Measurements Left PSV Name Value Units EIA 151 cm/sec INDUSTRIAL YARD BRAKE COUPLER 115 cm/sec Left Graft #1 PSV Name Value Units Inflow Artery 76.8 cm/sec Prox Anastomosis 102 cm/sec Prox Graft 80.7 cm/sec Mid Graft 60.3 cm/sec Dist Graft 69.6 cm/sec Dist Anastomosis 44.1 cm/sec Outflow Artery 72.1 cm/sec History CAD. Hypertension. History Comments:Left transmetatarsal amputation. Electronically signed at 10/09/2019 15:14:54 by: Nemo Conner MD, PhD, [facility] DOPPLER CAROTIDon 38-34-5272Maw-Invasive Vascular Patient: SHERRY Bazan [facility] Rec#: [id number] (Age): 1940(79y) Study Date: 03/18/2019 Room#: Type: Outpatient Sex: M Reading: Radha Su DO, RVT, NATANAEL, FSVM Referring: Mohsen Sarabia MD, NATANAEL Stock Cutter: Angela Giron RVT, [facility] Procedure Info: [id number]... Study Quality: Diagnosis: I65.23 Occlusion and stenosis of bilateral carotid arteries Carotid Duplex Conclusions There was a 40-59% stenosis in the right internal carotid artery. The right vertebral artery was patent with antegrade flow. There was a 20-39% stenosis in the left internal carotid artery. The left vertebral artery was patent with antegrade flow. Findings The left common carotid artery contained a moderate amount of plaque, heterogeneous in consistency. The left internal carotid artery contained a small amount of plaque, heterogeneous in consistency. Measurements Right Carotid PSV Name Value Units PCCA 79 cm/sec DCCA77 cm/sec PICA 121 cm/sec BENNY 77 cm/sec [...] 10:28:46 by: Radha Su DO, RVT, RPVI, FSVMOhioHealthInterface, Rad In Heartlab [facility] - 03/18/2019 10:30 AM EDT Non-Invasive Vascular Patient: SHERRY Jones Rec#: [id number] (Age): 1940(79y) Study Date: 03/18/2019 Room#: Type: Outpatient Sex: M Reading: Radha Su DO, RVT, RPVI, FSVM Referring: Mohsen Sarabai MD, RPVI Stock Cutter: Angela Giron RVT, RDMS Procedure Info: [id number]... Study Quality: Diagnosis: I65.23 Occlusion and stenosis of bilateral carotid arteries Carotid Duplex Conclusions There was a 40-59% stenosis in the right internal carotid artery. The right vertebral artery was patent with antegrade flow. There was a 20-39% stenosis in the left internal carotid artery. The left vertebral artery was patent with antegrade flow. 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 The procedure was explained to the patient. 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 The procedure was explained to the patient. [...] at 03/13/2019 12:54:02 by: Meir Aguillon MD, RPVIOhioHealthGLENDORA COMMUNITY [facility]ITAL FASTINGon 87-54-9408Oaadu gap molar conc8 mmol/LNormal8-16 [facility] HospitalCalcium mass conc9.6 mg/dLNormal8.4-10.2AviElmhurst Hospital CenterChloride molar uzyk925 mmol/GEpavlo26-721JkbspHamilton County HospitalComment on above:Result Comment: Please note: Triglyceride levels of 600mg/dL or higher may positively bias chlorideresults by approximately 2.1 mmolCO2 molar conc28 mmol/CFlhwpo69-71ZnodxHamilton County HospitalCreatinine mass conc0.8 mg/dLNormal 0.7-1.2AGoodland Regional [facility]. GFR,>60NormalAvita Staten Island University HospitalEST. GFR,Non >60NormalAvita Florham Park HospitalGFR/1.73 sq M predicted among non-blacks MDRD vol rate/area (S/P/Bld)Average GFR for 70+ years old = 75.NormalAvita Staten Island University HospitalComment on above:Result Comment: Chronic Kidney disease, GFR = <60. Kidney failure, GFR = <15. The GFR estimate is not adjusted for extreme body surface area or acute process, nor has it been validated for women or ethnic groups other than and .Glucose mass conc95 mg/nOQzxsiw47-582QbfknHamilton County HospitalComment on above:Result Comment: NORMAL <100 mg/dL PREDIABETES 101-126 mg/dL DIABETES 126 mg/dL or higherPotassium molar conc4.2 mmol/LNormal3.5-5.1ALarned State Hospitalodium molar lkvx031 mmol/WYrycor988-192OfzfwHamilton County Hospital Urea nitrogen mass conc10 mg/dLNormal7-20Hamilton County HospitalCBCon 10-31-2018 ABSOLUTE BAS0.0 S22KicjpgMturnDelaware County HospitalABSOLUTE EOS0.10 S21KeweacKtzzdDelaware County HospitalABSOLUTE NEUTROPHIL COUNT4.1 k11Xinrco0.0-7.0Hamilton County HospitalBasophils/100 WBC (Bld)0.5 %Normal0.0-2.0Hamilton County HospitalDTYPEAUTO DIFFDelaware County HospitalEosinophils/100 WBC (Bld)1.1 %Normal0.0-11.0 [facility] HospitalLymphocytes #/vol (Bld)1.10 P87KvxpmwJupybDelaware County HospitalLymphocytes/100 WBC (Bld)18.3 %Low20.0-55.0[facility] Monocytes #/vol (Bld)0.5 L14RxchfmBroqfDelaware County HospitalMonocytes/100 WBC (Bld) 9.2 %Normal0.0-10.0Hamilton County HospitalNeutrophils/100 WBC (Bld)70.9 %Normal 37.0-75.0Hamilton County HospitalErythrocyte distribution width Ratio (RBC)16.0 % High11.5-14.5ASedan City HospitalHematocrit Volume Fraction (Bld)33.3 %Low 42.0-52.0Hamilton County HospitalHemoglobin mass conc (Bld)11.4 g/dLLow14.0-18.0 [facility] Entitic mass (RBC)30.8 faFuesac23.0-35.0[facility] CenterHC mass conc (RBC)34.2 g/mWHeatno05.0-37.0[facility] Medical CenterV Entitic volume (RBC)90.0 rFSwfbur03.0-100.0[facility] HospitalPlatelet mean volume Entitic volume (Bld)7.6 fLNormal7.4-11.0[facility] County HospitalPlatelets #/vol (Bld)271 /ewfClnfwz717.0-400.0Hamilton County HospitalRBC #/vol (Bld)3.69 /cmmLow4.0-6.1ASedan City HospitalWBC #/vol (Bld)5.8 /cmmNormal3.6-11.0Hamilton County HospitalISTAT TROPONIN Ion 54-23-6334Uumkelga I.cardiac mass conc0.02 ng/mLNormal0-0.08Hamilton County HospitalTroponin I.cardiac mass conc0.03 ng/mL Normal0-0.08[facility] Doppler ankle/brachial indexon 10-31-2018 Amended Report Non-Invasive Vascular Patient: SHERRY TRISTIN Hortensia [facility] Rec#: [id number] (Age): 1940(78y) Study Date: 10/31/2018 Room#: Type: Outpatient Sex: M Reading: Ben Hahn MD, RPLUIZA Reading: Campos Guerra M.D. Referring: Mohsen Sarabia MD, NATANAEL Stock Cutter: Sussy Hardin RVT Procedure Info: [id number]... Study Quality: Lower Arterial Doppler: limited Study Limitations: Lower Arterial Doppler: The study was limited due to poor access because of contractures. Diagnosis: I73.9 Peripheral vascular disease, unspecified Lower Arterial Doppler Conclusions Right ankle brachial index indicates mild peripheral artery disease. Toe pressure is 100 mmHg. Left ankle brachial index is normal. 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 Mild small vessel disease noted at the transmetatarsal level in the right foot. Toe brachial index is abnormal. Unable to evaluate small vessels in the 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 Finding Grids Lower PVR Waveforms Right Left [...] 10/31/2018 12:01:15 by: Ben Hahn MD, RPVI [facility] In Heartlab Xper Echopacs - 10/31/2018 12:05 PM EST Amended Report Non-Invasive Vascular Patient: SHERRY Bazan [facility] Rec#: [id number] (Age): 1940(78y) Study Date: 10/31/2018 Room#: Type: Outpatient Sex: M Reading: Ben Hahn MD, NATANAEL Reading: Campos Guerra M.D. Referring: Mohsen Sarabia MD, NATANAEL Stock Cutter: Sussy Hardin RVT Procedure Info: [id number]... Study Quality: Lower Arterial Doppler: limited Study Limitations: Lower Arterial Doppler: The study was limited due to poor access because of contractures. Diagnosis: I73.9 Peripheral vascular disease, unspecified Lower Arterial Doppler Conclusions Right ankle brachial index indicates mild peripheral artery disease. Toe pressure is 100 mmHg. Left ankle brachial index is normal. 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 Mild small vessel disease noted at the transmetatarsal level in the right foot. Toe brachial index is abnormal. Unable to evaluate small vessels in the 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 Finding Grids Lower PVR Waveforms Right Left [...] 10/31/2018 12:01:15 by: Ben Hahn MD, RPVI [facility] duplex arterial leg lefton [id number]-Invasive Vascular Patient: SHERRY TRISTIN Bazan [facility] Rec#: [id number] (Age): 1940(78y) Study Date: 10/31/2018 Room#: Type: Outpatient Sex: M Reading: Campos Guerra M.D. Referring: ALENA Stock Cutter: Sussy Hardin RVT Procedure Info: [id number] Study Quality: Graft Duplex: adequate Diagnosis: I73.9 Peripheral vascular disease, unspecified Lower Arterial Duplex Graft Duplex Conclusions Patent left femoral-peroneal bypass graft. Focal elevation of flow velocity at distal graft ( doubling ) which could be due to retained autologous vein graft valve. Outflow artery (peroneal a) is patent with less than 50% stenosis. External iliac and common femoral arteries are patent with less than 50% stenosis. 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 Findings Left Graft #1 was an autologous vein graft, with proximal anastomosis at the INDUSTRIAL YARD BRAKE COUPLER and distal anastomosis at the peroneal artery. Measurements Left PSV Name Value Units EIA 128 cm/sec INDUSTRIAL YARD BRAKE COUPLER 111 cm/sec LAUREL - prox 0 cm/sec LAUREL - mid 0 cm/sec LAUREL - dist 0 cm/sec CSM CONSULTANT - mid 0 cm/sec CSM CONSULTANT - dist 0 cm/sec Peroneal - mid [...] at 10/31/2018 12:07:19 by: Campos Guerra M.D. [facility], Rad In Heartlab [facility] - 10/31/2018 12:09 PM EST Non-Invasive Vascular Patient: SHERRY Bazan [facility] Rec#: [id number] (Age): 1940(78y) Study Date: 10/31/2018 Room#: Type: Outpatient Sex: M Reading: Campos Guerra M.D. Referring: ALENA Stock Cutter: Sussy Hardin RVT Procedure Info: [id number] Study Quality: Graft Duplex: adequate Diagnosis: I73.9 Peripheral vascular disease, unspecified Lower Arterial Duplex Graft Duplex Conclusions Patent left femoral-peroneal bypass graft. Focal elevation of flow velocity at distal graft ( doubling ) which could be due to retained autologous vein graft valve. Outflow artery (peroneal a) is patent with less than 50% stenosis. External iliac and common femoral arteries are patent with less than 50% stenosis. 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 Findings Left Graft #1 was an autologous vein graft, with proximal anastomosis at the INDUSTRIAL YARD BRAKE COUPLER and distal anastomosis at the peroneal artery. Measurements Left PSV Name Value Units EIA 128 cm/sec INDUSTRIAL YARD BRAKE COUPLER 111 cm/sec LAUREL - prox 0 cm/sec LAUREL - mid 0 cm/sec LAUREL - dist 0 cm/sec CSM CONSULTANT - mid 0 cm/sec CSM CONSULTANT - dist 0 cm/sec Peroneal - mid [...] signed at 10/31/2018 12:07:19 by: Campos Guerra M.D.[facility] HospitalXR CHEST PA 1 VIEWon [id number] CHEST PA 1 VIEWXR CHEST PA 1 VIEW: HISTORY: Chest pain. [...] Remote granulomatous disease. 3. Bibasilar atelectasis and/or scarring.NormalAvita Staten Island University HospitalCreatinine, Serumon 03-32-0461Cqqbvlwgxs mass conc0.79 mg/dLLow0.8 - 1.3 mg/dLFostoria City Hospital GFR/1.73 sq M predicted among non-blacks MDRD vol rate/area (S/P/Bld)The eGFR should be used for monitoring renal function only and not for medication dosing. [facility] HospitalGFR/1.73 sq M.predicted CKD-EPI vol rate/area (S/P/Bld)85>=60 mL/min/1.73 n4UgjqKswzavWqfwxzgejlxocl and review of laboratory resultsAbnormal [facility] EXAMon [id number] ReportSurgical Pathology Report Case: [id number] Authorizing Provider: Ben Jensen, Collected: 10/10/2018 01:05 PM Ordering Location: [facility] Received: 10/11/2018 08:07 AM Endoscopy Pathologist: Carson Carroll MD Specimens: A) - Duodenum, Second Portion B) - Gastroesophageal Junction [facility] Centerinical information i3nusNImCTMoeRIwGvDwIWClKKYbs6ldPAEyzFXnZaPwZiOeTpQhEpomeXUjBRXnMxBca0myi389gMBx r7acNAEvFwQ0pXNyOOUm kAJlL181d3ecs8yjeyLkfTD5VSSfDVP2COuqcrNowuM3TKpkxPDvAoU7RPsfnoMbGQwdqtPldtVqQul3 HDGqQ392EXI0dCijs8gr RMB4PSLxMLXfCrPsLw4frOJqW818TWOqKJQLIUYkbGe0YQRiktKrznZkfMRLs185U128e0uxHGKbqtLu sFtGcjppx4wjX060TEXi hIGinaFgUuXiPGVgtMCdnHO9OAViHD7odvtpDeIdWD7deevaFjOkQB4nncr3NZM3SUbnCSHeNkV7MPXo rDCaMAHrtAcuAIhbo431 YXR3BFyjx4snl3aveVPgJfi5QCWoZbNgRkniYRgtp1Jcg4nsSGBtqa2hIPG4hVGysUqxq8W6zFJjIZLb mBFakeHxLBOfRzW6OCmz ZW8fxb46EPYhJKB5zd2emGPmjDifrfLerENsSOxxK1PfYRMoi272KCGjB0KaBJCgt8B3neFaKeThOKOg dKI1ytT4MYOjKWb0cWUp saT2yoOsrWUwB5wgsQ14ToAqaCNoJ8BzlM82CrLzwTScA5LgcN2mBHZeOF5cgodps8heILS7WQvbMPNf MLM0RdZtGFEdc2Fphykh WUWed8NpG3UnrVxoX12jeLwwV76lPRBntZcmcW8evHeqyL1oQqWyGoKkFJjtsTbmyODobfzyURxfxpBi VLqpcdtnBMVzMIrjB7ic JsThEYYbrRleHZipw5DeRZBpQCBpGaUrN2ozDknrDQWiNSchGOZfnMDxNRRdGW2bY73chLKoMlgtKBwa IwnsKLcfXDXlBbeeeSZ1DaYDCJPpd1WpcM7fXJVkhx9=VdzsDtpcilOnrjwisvr report final diagnosis Narrative c0zzqXTzGCTeeEZoAePcDDHmKOWid0sbGAGmvRUiNdFfSsNpLzFoCuoygGWvOEGbNxHvv5bnk836qGWd h4hhPVQiWyW5qAAbYEYm jWZhZ043WQDuMUvtt2tqk7UuKNAjzQZsr7T3UPXSenqaoSh2hBqxZ23oe6S3FhsvV5qaWPZeQGQpX8Ky KJ1oOSQbVeu1GOC8UMR1 MBRuDDEzC4CxDU6tQWGtwDUkGQq1i5nfpYrwFUDmZPO2r6mzLQqxmkDrIK5lnc0laRz6k5ilvlYtYFEf TKBvpRNXTWHaG7ZdmTiw Xx7lyEl4iQohFjfiLRD4Qyq4IH7rnp49cij8tTksPOVqmufvToL3QFzoHEJdcxaiPEe3QQspTYGfqJxl MFxtYXJncjcyMFxtYXJn dPQ4IIMbkICqU7NyPJCtVDolPHAflji2ZgFvVc8hkPZxyZYgbj7pds82BKW1p2XajCuuEMU7RBT0NhZu Zr4oxBRkOOTbBK3iYhHq rQQjPBTrep65xKdmKTwjfcTbfV5xWaDbYUNawDPlFHWgBNQaB5ndDfUqccLnB8edH2OzRUEdRYIlBMQh SiXskdNun9Mrr2QjnMKs sXb4g6omMNDlCNPafNnoy4xeRPA4SMFvX5K7cUKff2qdNVuqAVPltJR8bmguHAqpYSGofgR6morvNFaf WGXeiOC5rgZ9RZZupEIb Q1IsqF2xBAIqEPmuKCHhwzl2NmVlSa2ydJDhmSDss5VzpYTwFDunR00at643CVIbtpCfL1yzmOYvcxkd fGKqflnqXLwbzpN0XDVy loQbv8IvWBZpDLE6MPtdKGgwuWPrIEPllYzrb1gkT6VhdPAsBFPpYOvmXNPhQKToVuQlfMHiVbKuVrTq aGljaFxmMVxkYmNoXGYx OCmsC6cePbNnB8LbDCVsUgTxkUXgS4znHgKILgKokJqwvV3vXzFjViNaByqkUB7aQGAmV2vpoYYxLNAl TGEfS9njRlTvzX4ulYpm SFhpLqCzAfHjGcykJFS7y0JndnSqSSPwYHEwnbOxhL9jtQtbjddcqEHlx9GmuJKibK0ui8yuuRjddM4t HqBjCgEsSpwcTX0kRLId N2fxwLWjPEMjPZEuM7phTsKfoX0xrExgHObpWbAeTyPgVcyoeKGygOdtYSlwuQFhGVWtscCzWIQqRSaw bGFpblxmMVxmczIyXGxh qkcdHHCjTJxaV9ngQuCyEPSmcEaqHWqhq6XhOTQsWDLwLimsdlOyHLMvHW1ufi9avZAliHClKwDwnTdc SUMsau8vpMEeQHJvQHWd mZFvh1zkxLEslpwwZZthwmXgXYtnpttqOIBlAEwxQ4ezKmPjOHGxtEjaTSebu9BuDKWlTBZyMhvprbAc ZMx8amXiRTTsvFOdIRLg QAnrWMJaAZBhMpTsxURkRyAaEdOliAaiaUuaEBinDhCxWBHrFRvfR5heLiCmR2CxWVHqEqGlFctpEGYf rBearQ4hJuPkJoHxFvuu FL6jYEWgV0wuaPMvRRXjSNXpD9mfDwNxnT9tePheTYzfAoIzPqMlQovvjVRvdYpzZCCijeIMNsZgxBtk uN4tGtTiKiBxTlpgBA9f YLBfR3qpnWAlZVUjOVNlP7ysCbMvwD0kcVfqRLniKgVdJuXoOsgvJLSac1DzVYw8xynlO2EreCVgJSMw mAycO9MtyOEfyX6adLbm mrcazKXch3OolBRpfQ0im8jqiJnhgD7fGeViGqUtFflrIY4jEJLdM6rofPEpKGErTOZrA8cuWhRnhF6n aFxmMVxjZjJcZnMyMlxs lNNncCdqCXlgxOroeJ9eDaNsYfDmHhnoXZ7nNHWbE5vfrTLfTRIsFJNlO3nqUvJskE6wxOucEIalZtCl ZnMyMlxiXHBhclxwYXIg BQYqJFQdE2X2OL5oZ97rbA4vADIjvXRba3GoUAejoWxhsJNljX6vfRRlvDRze6UxjMZibTKxIHayYVRw FGNnBNTpOvQbFVVkobIiZm3zSNjlhWDpzArwIGqrfTF1DAThQAEzYCpkUYX2DdlwBhbsfhKormmjmxe report gross observation Narrative n0dbwFHvWKUlmTZlDoSmDSBmIBEeg0dbJYAouNUdQbQoQrPsTeBvKuifkXDnYZDuUqEnl7wfb631kZHn l6ivCTFsIcW6mLEjAUVu iUDgE610BXDnKWbmxg5bFI9pPZUdlIMlj4R2HTCTvtoyrHa1e6wrCkKxZaB7nFOnDQwnJ3mdntEgzVAm AJVsUAn8kKcmPgOnDKWq e3Esij1eVKZevJTjb8Q0WUJHwnsbuYx7hCsgX51zf1T9NvyfB8hoNUGqTLqaGBQpMJvlySGkEQM0IQWx ZWB3CSjcvsMjapN6DYmr eIKjVjI8TQcrqtYkQbXnMUihHXOqFuK6KTDdeUBxXRMpK994DDX0gNqeb7irVIA8WXMiNCHyQtYcBr8o dXJyS932QYJjIDSVOPUx tMn3BVElhvMkxkSyqUPUl443W661b9drJZYarnPybLdGserhi6oaZ242KJYqzWUdohLjSrTrWSJzsBIz vTP8XCEiGQ3avvonZuGl RG0bkhnwJtYfWX6anml0KLF7CTpyRKEmBlN5PQUqhAJiEPUenAlbHHkks163ERF2TVvyw6yeb0qdkOUv Gck8SRLaQjVoHrxqSZor p9Pla3xeQWKzvy3mVVC4zEIfrMcjn8N3zIFxXFZmpHGruhPbFGZoOrQ8CPwnVN6sPU4aPSDopB2cnmbi XHBnYnJkcmhlYWRccGdi tdQmOh5azLrvBCL5QKxhB1qapO6cTxZ3TPsdG7xqjS7tCLr1MVducOX1YQAcvB5sXM0emxauo4uxOkBn OA0ltryur8jxIpPrSB4g vvi3j2gtACG5RMjaPPJpXkH0wdD9KAJxdXBlRHEjlJihBXmiv887OKT3SVwtEglyWBglRJHehaCgmhTj cGduZGVjXHBsYWluXHBs TSiwPBFaLKGlExJquDFrRGavf0DezdUjoIxoKKKtPDc0yjDgjsyweCs2hTAmgDrwVARmkYzqkZ0hDyAj ZnMyMFxwbGFpblxmMVxm fpXnEXxueybsIYFrPRboK7jzFnSyKDLbiBwrOUvxk1RxHRRhOMYmPBocwiVpUHz6shAdLPSlSVPylKFo IEEuICBSZWNlaXZlZCBp yoChn9HeJBxsguCeXKLyeSDxEABwtRkgsP2xGvBjAjNuJVivBN3cWIKtT7xglWTtDTNtTWSrH1rqNaUp qZ9wjMsfRqkkDnErCkHt WDzezh93TUS8o2vbkMPbXXseKwvmzPTacnU8IWgDUVDJKDoPBiRlFD1rCElMCzrIYPaRKksdFOXzJZgy zNBEXAdMO1n5YWMPLE5m HIwpQxr8YM54YONiDRJtgEEmVDkdQ638NLEkRBjwJIUrQHCeDfNohXRvXsXdTwUkjKvatDcqVwquReOt ASGtWCfuZ5lrQlRvT8Qm OJHbYbYgqULjcLEcxDUPb9tgYCRUkM9kfkPEAIJcCPbbNQOqUCPcQnJfbGLaYoQbHpNqpQdpgCabEwat HsEcUTNzCObqD3gnGcNc W2ByXGUcUnMxbDZrbMJxbIdmYehzvLM4QOpyGiyqvO5cyHSVXBDWJhlEDfxnpmAhTA6VAJ1ENL7ZxYJ4 ZOTrzWU0DHIVLN7HqPnS ZAGyBtEaKFuamGhssIzsFzkxdgOsgQZvIsBgvJ3naEcieD7cTjNtOvAhUHerAD4qTBAqM4dbpLKuTSYu AVKiJ2qnAlRzjO7znDfd JTlqFrKmBhInSCvxoDAclLRnKUHfDEYfGOSkC17mgGRoYXSdaHuhtV3uDdPuXfTlRVHYYmNAoW7rNF09 qDGuDBVpadKveR8ktJya fsrqpRSspeqtAJqtwwCuSNrfagzdCGOiZBmwI5cdRaAxRBOcmCbhQFmtw3TbNTHuDAAeGKmkyeJxSOt2 cmNoICIgXHBsYWluXGYy RTMgPqWoKQBgQDZ7maR1NH5biU4meQuomrbat70jb1SrKVIhaRZ7IODoYWvzFBRxYIFjRiLpzCOmRsTj MzNcaGljaFxmMVxkYmNo ZGUpWFloU3weTsZkN9VkFVRuDeVqhOJxG3grHMHsVFKjYYPkSDUuqRyszZ1qYvWrQmSsCSFhUeLgiPCs EnWsfNFrCqZnmTcgzX1u CaAnCjOdIIkjQY5oDLRjR0jreTUiQTDqCDGnI7jtWhNltS7nlVhjZXriOdEkSrRzXGzafJJhuJDgU61o vQjnpC4eVeDwYdWaKSFn UNBxxSklxYFgwfrmIIjrzmRqQExbjcctYEAnHDbvZ5ohDsEhMEVvbMdzOCdwd5OnQNBaAFPvYKsnwaOr XUx7jqWkCW5zPCFwoFQe uYwvvT4rAmAbGeWrGJQkBDUoOAetLRMzZIBzStNskQBcFsIhNhEbaFoznSvuUYwvYtDrYGSvRIvzJ5vz KkHcE7ZzCYQcThNvuDHr S1psHoHoOPFmPFnqYAXtGKVgNcNpaUJnTdQaKzVlkCehfZxtQ0vhMgKlHHSkEEnrS4qbVwVqT0VkABQa KpVls2PcbYKqJWI6XyQo CZTgDTrajDIfdkfbQEsahtKwWHqtrxoeXMArFCgfU1pjKiOsKKJykAdjWPsku4VtNXJjFAVmNPxmflNn GMq3mnSiMGKpeemgpWWk ozqsAxlptjXzYQTytznuvTZsjspdRUbxpoPjOWlnhoqdBKRnEFzzV9vwOmPsKVLxdIueBOvkq3KlEZSv XRZiJPiknqOkARx3ggFj KSNtPEMtmFPcUOUbINUIGSRdoVCdCNImokUpy4OmWHucssHgDSSaiAWdUUFhwJduaD9mGvYuZlDdLNxp AO3hLXVuB0svsTRgXSHf GOIvX3lhIqLgbN2rlJmwHvxhDvGwNwOmJApsie61ROO4y4ukxRUpMRytMcoevWTxacO2DVhOWIBGAAyZ RnQtKA0xQXlPXrmEZFsX RsiyQXNeWIcelDONVYkLT1f3CKWGGH4wRLurJrg5UU48NJPjVNWceNMvZUecS901SSFpPZoiPAYcGRWq MjBcbGFuZzEwMzNcaGlj jApqDurzUvOsRYAtXSzgM7jlUeBcO7JaMFFpNfBhhNKtbMCxxSEDr4qdDJCFfF1lccPVBQHsIIvfGTTe XGZzMjBcbGFuZzEwMzNc cUyoeVrnFcpyVoJgRZRjJJuhM5ybTgWyQ1TnHNBtOhWyuMBxyZGjcHbsItkofUM0YUifGhwpxW1bsJSD TWOKBkySOsaokeDxXV8O WY2GFD3TdLD8UHLdkMW1ICTOVK4SlCcLPTOxFiWhIFsqeZnkxCgmObcoikSloYAqJrBraT0veLtmqJ6u OhHrTbNiRSllRU5xUNFz Z9lqwFJzWARcQYNmB1mfDnQkqQ5woMwlHWnyLjYyVgNiDRmmgPLapCQjJHEaIUHsVYBxZ01dzHTzEXFh aDbyqS4fKcJmFcRvINDS MgVQJUL1jm7bv14sbFMySPImKSh7ehY9oA5fWENiMColBPQpVZTcXuPupHTfTuJeCaBsjTscmPehVEfb JiAvRGUhJKjiU7roJvVr B0TwFVHwVkWjiJQrX1omJuAgdZglkW0hUcBwRhEjBHMvzrEqxeUfkXpsnbukfLKqXLMxmG2iyDqjVRJx IGTlmSoukV3cKjIlGeCz CTkbVM7iLABbC3pzuSHqFAJaMFRuH1ktTpGeyO0qkKuhUCvjNjErUwZgOGhimVZgaRVysSwkV6Edmbpg IFxwbGFpblxmMlxmczIw TFVdCSL4ZCKrEoY4ZLHmSYonhBSvuvnzHFecsxEzCVbrvwalXYJcKTxtX2tmWxGaFQLafMrtTBttv6Uw XGYxXGNmMVxmczIwXGx0 rkMhXFYhqQ9fSKQazEXlbVdwpV3vVtMrWyUsOMEvFIZwHZuwYZLqSTWjUxOpoFYtOwVmInPylMecdHcg VDrcVxJtVBPnNTorM8jd DhJdR2JvTLUpBjYycHZpP2hdMpNwOZUmRSylPFYtYZHkQgGygPAiMaDbLgYjpUpuuJlaJ0lnMdOgXPZr MHyxW5nzTkUlW4ZtLIKb QmVja7IdcDHvQQP9XcAcCLOoGDglPXFygCZxKHCsqxOla5AdPADyGXC4RQssVVeijEylnRNuedxoGNzh czIwXHBsYWluXGYzXGZz KeCulFKsSvBbOeRnaQslzUplA7gnMbZgFHBsTHrxL6hqMsTsY9BoKTJcSeUbi5QqqHDrCFB4VaHkICUm SwOMT4VOZ2oqQVRlkCZb DGAeDHwsZDPzOFGtNfXrwHErCAxfh6HkUZJ8RD5gffJ3yM6qZCRnucPeko6ePRUsgMavBjy7AREdoVYf XN7cnLfuIIeltNQPh1Ek oWKsdKDsZLR6AnJeR2qvsoOcfsw0LTRrrmGvACYlVHJsX52daG1zcDHlKA5XXJDcPfC7AFYcrn2= [facility], [employer] report microscopic observation Narrative Other stain m6tyfHPgJJFybHRrLgKmAOUtAPCjn6btVNYkfYNuQoGrIdRjWqZvMzewvAFcLCPwTeSoa3koz271iXEb g4aySYVkEaR5bDItCEOy sNIxZ498TNRjECgsu8cbr1EkIJFaxNJyt3W1VDAFyekesAv4bRcmO18nb0C5RprzK9khDVAiMIGhF8Ca PZ4uVRHoDki6HRO3CNJ1 ULGjHZVxE5TcCO0cGALfkRIzDLi1f4fmiBpsJGTuCKP2j3mgYHrwrsXcTA1cot6kbFf1p9uxviReXWFj KYNnnNNZGDQgO0DcpNuc Xo7pqYt1pMgiBcxsCGV4Oiw9CM0dha75ldd3gIckLIZnapitBkA3HFelARLnhnbnDZi6UNxrXIPjkGM7 BEEnfZVkF0EnALIqOE0a vaw2BPA9IQnkPEOeFtF9WWKxjOHjSDPwjGabEPjpn672RUB8RaFaJL6wS0Bad6C5xK9ijKUbKPQxfOCv ClNpZRBbeh4vvRPgMVup b0XzJJY3duE2fDXziJItWTDwKE87Cwbov2BdQlhyODU7VMYvweAdn3Bid0zkDqUxacSgJ5flS1KdGUWf EIGfSUSlFeItigEwq6Bs f8VfjODczKj0g8axPJJyYXOoaIkmx3yxLRV2LAAsH1E0gQKgt2elJAcgFRUgpQP3kgG6KCCspEEbH6Qb jT4oHNNvRG7wyus4j1to AZL4GBmcZGOkBiA4qoU4NESugYIoTHEwaXreLToyh219FTR4RaOtQITvg0TsV1BteWovZ37roWcdR08x LPZunTrbzC6lrAkuwJ8d EqNnCyYuGAydeMrjqLNukbfvQUfwvzLqIXtyxgspLDUhNJhiQ2ewMmPtHMSsfXqyMUhyh1GtYBVqORGo UwQeKOvdvt4fF98nmQWcYAbguFciNYGih87muXZlgEEiGz9taKPtGpiiMUO6HtwmAzvlidFqusooygkb Level, Randomon 43-87-5623Lgffodotbm mass conc18.4mcg/mLOhioRiverview Health InstituteNo established reference range.[facility] HospitalCBCon 60-88-0003Wakbesbcaxq distribution width Entitic volume (RBC)14.6 %11.6 - 14.8 %[facility] Health InstituteHematocrit Volume Fraction (Bld)26.6 %Low41 - 53 %[facility] HospitalHemoglobin mass conc (Bld)8.7 g/dLLow 13.5 - 17.5 g/dLOhioHealthInterpretation and review of laboratory results AbnormalOhioHealthMCH Entitic mass (RBC)31.2 pg26 - 34 pgOhioHealthMCHC mass conc (RBC)32.7 g/dL31 - 37 g/dLOhioHealthComment on above:Cold Agglutinin presentMCV Entitic volume (RBC)95.3 fL80 - 100 fLOhioHealthNucleated RBC #/vol (Bld)0.00 10*3/uLOhioHealthNucleated RBC/100 WBC Ratio (Bld)0.0 %[facility] Platelet mean volume Entitic volume (Bld)9.9 fL9 - 15.5 fLOhioHealthPlatelets #/vol (Bld)160 10*3/uLOhioHealthRBC #/vol (Bld)2.79 10*6/uLLowOhioHealthWBC #/vol (Bld)4.58 10*3/uLOhioHealthCreatinine, Serumon 84-02-3507Pabcsxiyjz mass conc0.95 mg/dL0.8 - 1.3 mg/dLOhioHealthGFR/1.73 sq M predicted among non-blacks MDRD vol rate/area (S/P/Bld)The eGFR should be used for monitoring renal function only and not for medication dosing.[facility] HospitalGFR/1.73 sq M.predicted CKD-EPI vol rate/area (S/P/Bld)76>=60 mL/min/1.73 o1MvdhKmdkyiBkoigbuuzhoukd and review of laboratory resultsNormalOhioHealthTISSUE EXAMon [id number] Report Surgical Pathology Report Case: [id number] Authorizing Provider: Flynn Mann DPM Collected: 10/08/2018 07:43 AM Ordering Location: [facility] Received: 10/08/2018 01:42 PM Center Periop Pathologist: Shyanne Yoder MD Specimen: Amputation, Foot, Left, [facility] information i4rcfELlLJZvzRUwSrQbJCDrTVGur8jqVEJzlJRxSqUkQbXrPhNjIokbyBQoULAkPlYiv7bqa897pJRm z3pyETLmFoT5gOSbPXXv uAUhW793k2rqf5hcdqCyqWO7UDKnNOY4QIhkxpKaxfD7TRzeqZLoUhG8ZQmpjnLrXHljytCgnrLbXiz5 LJScD918VTA1hZizi6sc XHC7SPMcXYXuGkAtBe1pwWZoR301BIKtFLEHGNFtiYd0FKHbmoVhsrPebSEXf510L594i3tvXXAigbHa uNjZmyrei3qxX867DBMo gVTalqUpBsZrOXZdkCRyyXX9BISkXR9ybmosKsCyYH7dgrxlLtKwCL1ufhj4ZRN4YBgbJCAzUfN3KFCb aJBeXSZpbCeaEEiid217 WCC3UWved6ovi1leeJMzHeo3PROjDoPxTycmOVele2Yhr9vlCXSpzw8aUCJ2lRDllQlhy0X0zQDbNBJv tPMqxiGwTWBbFkW6WPdn DG8wmf79MZUyIZJ8dc1vnTCpeDnmspWamKCsCNpmD2IuOKMsx018GVIsK9OyYEEoz0L0alGyApJnZEGk jRT1zwR5SKBeBMg3dZVh wcU9pgOozQYwX8shoF91CmFrfQSaQ3VxxR28YwHhaSLeE3MqmQ8lXITgVN6zidzjn7vzJHV9ONfyWHOc QBS4NiVwOKIwo1Slcwme AQWmj7OqC5KbtEebA54zhSuqI07gMDLxkQwhrX0hlJrzeG0jPtWkXaDwQZxsuSphpPIewouvSAszljYv GQpweiseFHYjTLciD7lu WnWxKNEcjZilZYhji0PvRTQxJXXfDmXeKTNqmSAhl746ZDsofuptWD7bKskmMIL6LjgkOuruwe Pathology report final diagnosis Narrative x7kndQCgKVQyiNSzMnGxTGDtHCBmy2pjFNPilGVjDaCuThTaFqFmCnvqzLCjBNSkZdXkm9krz459zMJs w3seATBmHnZ4yWOjOIJy xZNvZ400OXJmJYeog9quy1AlMMVfjYEtl2O7FHDAdfwczKl6wFtdY72fc2U2HsyyA6pwJAAuAMlbFAUf UObpoNTwJWL4LNGtAUD4 TPpmrfCcluK3MWvufKSfIuA1HQb4l7ihzQwmAOPvXGF0y6rbQGxhugBuHR4cei8cbHm8w3imumCeCYQq ADQkfVQEDSBlM5XxxMcc Ri5cuVu3mAejZjgsLNA9Wgr4YV9vrm42wtx2oYpvVZMepmfrVlB2AAmtLRLsskbuHXt0EYajVGYwlRga MFxtYXJncjcyMFxtYXJn nEB7SHCihEOkL2VgQVPbRAydGZXviad0LgRrEw9cqNQnaGDika7ann56LGB3n2VjeGpxDCY5ZAT2WmUj Be5hlMFfTMWpFP2oDaHd fGQeKNZgru25wMcgNSywsxSulK1aCkWuEPQonFOcBZNwZZCaM9wqViVypiIcV0iiG6VlCPAiIKUeUBCf StEjlqFsl8Taz1UcyCEz uQu7z9yqLKFzOBFgiQhrw1juKZU9DOUpP5E3zGSky2zjFJwoPYNdlFT4mimnISumWSIaumS9ravqGNoy SXIxwBG9njJ3QMOyfSOh B2XsiM2qBAAkCZfiKWSkmmz8MoVgWn0olRQmvFSbt5BobPAoDSsiJ62sq948JCZgubJaW3szxQHqygkl bGFpblxmMFxmczIwXHBh mqPjy4RbKLZiQOS9DWiuYPqrpTGxTEJbwUhoi3vqT6PudNMaDPIfSZkrULHnQEUxXaFhsDhjqX5oCoQh BhPpRTzqPP7uPEIrE1nk jPPuINFuEXOyY1ftHzKzsT7itZxmFMuuAlMrCvCnUQvxBLSyuxeonLGbkdjfKBrsrmKmDGcfyvejROBy PVycC4orFnWfNXKllEyw SClql4YiKBAxURQkNFwxquFjPQThNSDxzXMzc545SYNelEC0bSL4bX0kGVZhUPahHNChWVFtOcIecHKn ZzEwMzNcaGljaFxmMVxk GxCgHBKdIZtmY9cvFiWxI7ViTBZzAbNhvDVlO1hiXvR3LLCpHBpnSRDxCEHpEpZbuGBsLlBlIzTqtMir aFxmMVxkYmNoXGYxXGxv Q6jvZiEqX5TxAMBnOcHvKixoCHShtEPeUGUufdMiw4IpLTCoQTD0OUnsTLlaaVbmhVQbppmqFIxxirIv XHBsYWluXGYxXGZzMjJc iTTrXlDxWbOnyFxbdDvwTVdpFjJyVZKrPTceJ0gvJvUiY8FwMIXnRgNhYwUmKOAgDRITjJYsspFxqmUi i80qdAA6pGEmmDLoBE3mJSGdewRcktMydk5ovBRmOHAqwxdtjCAqhgmyQYmngsYdQBOchheeOKA1 [facility], [employer] report gross observation Narrative f6rsaXEqXRUzrKTtBoZcSDGsCQEzp2caCSGzdLCgCmUmSmOsHlZnDwtrzSInWVOzFlJvy3gxt646fUUu z1lsABEaFkH2eBGhVEEi nZQoF056DTHgYKynxi2nZG1jVLLhdNMpl6K0BSCSkkohqIh6h9izSkIyIvN8eEQwTCfsG9tvpjUxwLMo GBBsSDe0wV86UDJltD6b fXGoLJjumfTvMWzitaUogiPcJuu5EXIrR4idNZSdWCUcX7KsZJ5bHCBlOgk7XHY4SVE6PNMxLOBjDIkz cmVlbjIxMFxibHVlMjU1 CGi2r9jscZfhEXYhISN2a5xeVTdzrsVbSK3emw6jfDy6h2owpuCwSEUhVFDknYGHICQyX4SyzEnbCo4c gHs9pDupXeezSFO7Jql3 LU5rmz66tzi9aMicBMWhonioSpI3VNkiAUAphdvrRZa3MKufMRYtrRzjQBieKNHiswpeXGgjTRWlaBE2 SFLwsCMrH7YiIVEbVXmb QOFsvyq7ZoXiKq0hpIViwZEhnc1oiu89LOM9w3IxiXrdLYG5NOS4RiObUo0acJPbFLUeKS4rRbQaiLOu VVCthw61nQscJRgixpPq wE2cSaFaNREylOJgLIHtYVJdM8hmMaJlhpHnR1fwO8RsJVOoABAuJVMqRyQyphHlo1Zun5ZjkSDqgLd3 d2deKQOkZWHcvXsof1ad RQH0KKPuU7Z6sGAjw1boUZynZUScwZL6kvrrTPrxFIGwhjO3hmbwSEvqRYDcaPG8urJ7NEMibDCtK9Ya tY3nDTOaRWibMMThfbi1 DrZdCj5cgQAbuWElg2XywTLoKSrdB79vh701WNEyrlDqW2qrfDBvtbpkqLEayxhjRUylvfBfPMBoEDEj YWluXGYwXGZzMjBccGxh rG5qBiCzJfNyBFucQE7lASRrZ7vfpUOxRCKlVXKnD6jvCgVfuZ4ahCqyIDejWtOdNdJeEMrarPYvbXHH QDMujPCyIRCnivHqu6Yi NWvoqqDpHWTpgCEjTKNgcXohrS7dAvKdFuTaGPteUT1sGTDlF1foxAHkQDVcXIZkO2baKeJflT8ewDzc HPxaLjNdTyOrQFescd71 SPE7n2ftiMOkEFwgJawkbYGqvcF4TPyUKDEKIRqJZvXqTL0oSNnNTtyVGUbJDvewLUOyGPetiRBBFUzQ L6k1CLFIJA9tXGccPon5 IN52TZApHQYzaZXnNKhzJ461XBDeXVdmKXOzBDAaBeQtbIPuGaSbUnDmlOthcFynCAnwAfIhGPKoUAaa Z1owNbQiA9QdYGTwDiKe bZHftPUgxJOQh1hiOKLGtB9laiYXGEZaOHfdSHPsDBPyDtKvoBZcWkIvVrWcvBnryMxuXFwnZnRoEQEc XKbyQ7xsEsLoW8NcKQGl MmNejCOevNVcuEubXzomcCU0IRmxDgjsaO1uwNPPJRFBPnvMOpngpcWrMW7BGN0OXG9BzXR3JKUxgMK2 OOYCQV2MiHsBVYOfErNe ASmngIzsfQtjKkxnayAkyJXhCmUayV3edOqtyA4qRkIfCxRsPVpeDY2wPTQbR4ynsSBfCIEeFGNkK3jj AhAjbH8cpDgrFRcmNmPb AzTgSTwmcSSwdKXeDZRmKITyDXDpR31urXOqVTKpfPsjyV9uJmOcHdNjGCVdZTH5GPKvi8BdVL8dlCLc dGlvblxwbGFpblxmMVxm uoPmBCtvqyceXEJmBYxhA7uaZvKsTSFslFdpTCdjd3QtOTSxXCVgENmbhcRxMRp0wcJjYDIrdDsftF1v ZjJcZnMyMCAgaXMgYSBk cSLrnxHqX5YkYCVkBWEvNYV5GWEhbiOgu842BWSuUQD6JErsOEZ6JQBwE89mDILNeGSgp5utklEvtbC5 PG3tl6mnwCBfWWkdjF4l nQZgCkLqDZnrEAGwtM8nq40fvQaaHIDvRFOoUI1rRMBjDAPsjIA8UBqbvJGaObPcFwQ2jTSkYN6uo4Bo UGV1zcQfP0Uzk9LihVtc JBRqd8XcsMDyX3Mng2FcgGPutL6hwILpNETfKZBsfAHgFI3mCVOgjyYqCr4bAMovbFLvCKVau9KdTp9k IEZpdmUgZGlnaXRzIGFy NJTnqcAwWQ27HWMqCTHoANrqmHmfPEA5DX6kwN7lqISjuL05LPM1aEaam8JeOICxpH6cvxHaoW8kOJAj cGFyYXRlbHkgcmVjZWl2 GFBuZEZdBEQtSZGbaXXggWfsf6Bow75aYSQiEAB0bSwrNLVfrA2mgZFkev6sFq1wCBRzXL3vDLCstHVh ubNkZ2HwKGRyfTYqrWDs Xr6mZQ4gBJUrDJIhodWfF5LaHYBqi3NgFdQlRXRyMFCiIQmfUYwrf4veaIJiHRCoi086rB2wESsdXJYq uZHsUOEvr0PypFKoRTQ5 qK5xyjx2APFENP5rTQCxEDMjbbKfgKo0TZGoa5amJECjp5PgaKttrrWwIMTjsO1oCUClVRIqToFRZa2j INOiQSWmlpXggFn0IJTj FQHmp1SxSzPiaxBoEqszJ3lvCUGxwLZjGW2hPESzx2vbSoEJLe4um56oZQQeIRRatE4qIrwuI3govNmo R0oivlGyJEStuS3nIWCa Z5MyY7iikFOxNdSNTA4uNSFcCKQgtxEpgTn6CZJaxQUctQFrWg5cCUntEFCuIYmlsQGwVWA9DUF2WRAc iAUki7FxyAV1hERmRSRf nPVqUBY5fwTxGb5plZVgk25jSHGaVKGghWCaOiasVO6fEG8sTX8kSYZvpkjkZFRyJ0FPR4JADr3ieCyf TCCdpehhXDRtG4Uru9Jr VEjuxPcuGFOrj61lzOCzHy4hrJYdKXV3JyRPnAAxweOiOGFpVMF5hA7vxZA6JKele5LjmHUrTR4oRoVd IIVCsGMxxOQpA6ayVkr6VTCbQa0hCJDJh7d2nUK2ctheI9zaQNOeHNXsOGQoyl9=YqikZyrlqc Pathology report microscopic observation Narrative Other stain c7cchVDoYQZukDAeMyYlSBQzACUcg6gwRVHoyBDcLjMaCtNkHkSiBmmouYNfGRExQwVkz2cuf579gFKv o8ylVFDnTwB2tBRtYFAo zXSvB357YPYrVRnpm5xbd9QtAKBfzOWkf2G8DINLmavsuWx0sVqaF27xr9X2DuzuI1toPPYgEXAcW3Hh CW2sNGHnYso2NGS5WKV6 GZCtGZVkE0SdLW8yHLNbwIYcPQb3o6oxnJyrWNJiMXK7k0xkTFruovFgKR2vci1bqXq2g9injcQzQVFm ZHWqrCOFGIFlC3AqqTmg Dn5riYm1uGpvFothTBX6Tuu3RI5xig48yvf6eDxhVAGbmdhuPzE4FJosQOKhhxuyYAe6TVheQCXfoVK4 RFGioGMqG8VoUPHzCB5m jkg5HHG5DYbmKVCoRnN5FKIliWLtAXEngQsfROwau084MKN8TfMzIB9aN9Iau2Q5rX7rgZLfYRLrrMNs HlPaKQIxkn4xhYHpLXgu s1LmHKE4dbI1mPHijCSjFTEvPI77Fldms4JdWxkmANB1TEHfjvXfk9Yku6gqOpRvlyCjF6idO1AtWYJj MGUaOLReKhUbirQcj9Dp p7LwqPAlhZd3g9ipYBPrYHPbkHqiv1jqZXE7NUWuF6C0yOQvu2vyCRlxBAHjkCX1sfI3AHKwsZCwK4Du rM4vWVRkHZ5jpey2n5ul OCY9CSgeUWOyRbA0hqU9JPFbuTUnHXKioXdvLYqim816JTL0HhMfPEMjz0WuV6LwvMnkW57ttOkfT26q SWHvkSttrU4otNkavA9u EnHlFgUxRBsnjIytuIWzkahaHPzycyCtXLmjyivlJTDaIJkxX4gzTnHlZHQywTvwUGtwm6GfAMCeGNGt TsTfIDydrh2cV25fwEAtBFzplYevHUPvl57biDBsnXTdOr4shBPoLjasZGS1WocaOmcazwNivpvghqoq Level, Randomon 11-13-0648Vmeglbddqw mass conc14.3mcg/mLOhioHealthNo established reference range.[facility] HospitalXR Foot Left 2 Viewson 10-11-2018 EXAMINATION: 2 XRAY VIEWS OF THE LEFT FOOT 10/08/2018 11:54 am COMPARISON: 10/04/2018. 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 Surgical drain is present. Evidence of remote ORIF of the lateral malleolus. Overlying casting obscures detail.FloridaHealthPostsurgical changes status post amputation of the left foot at the level of the midfoot Chopart articulations. Surgical drain present. CASSANDRA/[facility] Workstation ID: [id number], [facility] - 10/11/2018 8:39 AM EST EXAMINATION: 2 [...] articulations. Surgical drain present. VK/mll Workstation ID: [id number], Serumon 81-22-6640Vmmrxpxdsx mass conc1.06 mg/dL0.8 - 1.3 mg/dLOhioHealthGFR/1.73 sq M predicted among non- blacks MDRD vol rate/area (S/P/Bld)The eGFR should be used for monitoring renal function only and not for medication dosing.OhioHealthGFR/1.73 sq M.predicted CKD-EPI vol rate/area (S/P/Bld)66>=60 mL/min/1.73 e4MaeuPbtkxpTybuudbgyiweps and review of laboratory resultsNormalOhioHealthECG 12-LEADon 65-61-2595Soyvnc Rate 72BPMOhioHealthP Wfjj-043xsswkgwUrbdOousevG-K Ojwgexjh288 msOhioHealthQ-T Lzlpdidj947 msOhioHealthQRS Mdfgmfsb34 msOhioHealthQTC Calculation (Bezet)457 ms OhioHealthR Yjlx884pdojcbcAmyhLggznvS Ovmn868anmjgbgPzetVqvbsaZeodefmkrsx Rate72 BPMOhioHealth Suspect arm lead reversal, interpretation assumes no reversal Unusual P axis, possible ectopic atrial rhythm Lateral infarct , age undetermined Abnormal ECG When compared with ECG of 05-SEP-2018 13:28, Ectopic atrial rhythm has replaced Sinus rhythm QRS axis Shifted right Confirmed by Maxim Ward M.D. ([id number]) on 10/10/2018 1:34:17 PMOhioHealthHemoglobin and Hematocriton 90-16-9065Eyckmrfwut Volume Fraction (Bld)25.1 %Low41 - 53 % OhioHealthComment on above:PRE-WAMED FOR COLD AGGLUTININHemoglobin mass conc (Bld)8.2 g/dLLow13.5 - 17.5 g/dLOhioHealthInterpretation and review of laboratory resultsAbnormalOhioHealthHematocrit Volume Fraction (Bld)24.0 %Low41 - 53 %OhioHealthHemoglobin mass conc (Bld)8.3 g/dLLow13.5 - 17.5 g/dLOhioHealth Interpretation and review of laboratory resultsAbnormalOhioHealthVancomycin Level, Troughon 07-27-0958Vyjefxkbvevuax and review of laboratory results AbnormalOhioHealthVancomycin trough mass conc27.4 ug/mLCritically highOhioHealth XR Chest 1 Viewon 40-90-9851Glyvfmcnq, Rad In Kary Speechq - 10/10/2018 8:25 AM EST EXAMINATION: [...] resolution. 2. Findings suggestive of underlying COPD. [employer] Workstation ID: [id number]. Increased bibasilar pulmonary opacities may represent atelectasis, pneumonia, and/or aspiration.Recommend radiographic follow-up to complete resolution. 2. Findings suggestive of underlying COPD. [employer] Workstation ID: [id number]: SINGLE XRAY VIEW OF THE CHEST 10/09/2018 1:58 pm COMPARISON: 09/07/2018. HISTORY: ORDERING SYSTEM PROVIDED HISTORY: Dyspnea; TECHNOLOGIST PROVIDED HISTORY: Reason for Exam: Dyspnea Illness/Other Acuity: Acute Cancer History: unk Surgery, Radiation History: YES Type of Encounter: InitialFINDINGS: Status post median sternotomy. Cardiac and mediastinal contours enlarged but unchanged. Hyperinflated lungs, with prominence of the interstitial lung markings. There are increased bibasilar pulmonary opacities. No significant pleural effusion within visualized lungs. Left costophrenic angle is partially imaged. No evidence of pneumothorax. No evidence of acute osseous abnormalities.[facility] HospitalBasic Metabolic Panelon 08-67-5632Fouvb gap molar conc16 mmol/L10 - 20 mmol/LOhioHealthCalcium mass conc 8.6 mg/dL8.4 - 10.2 mg/dLOhioHealthChloride molar yxcr798 mmol/L98 - 108 mmol/L [facility] HospitalCreatinine mass conc0.90 mg/dL0.8 - 1.3 mg/dLOhioHealthGFR/1.73 sq M predicted among non-blacks MDRD vol rate/area (S/P/Bld)The eGFR should be used for monitoring renal function only and not for medication dosing.[facility] GFR/1.73 sq M.predicted CKD-EPI vol rate/area (S/P/Bld)81>=60 mL/min/1.73 m2 [facility] HospitalGlucose mass dxiz121 mg/qCTlrv38 - 99 mg/dLOhioHealthHCO3 molar conc23 mmol/L21 - 32 mmol/LOhioHealthInterpretation and review of laboratory results AbnormalOhioHealthPotassium molar conc4.2 mmol/L3.5 - 5.1 mmol/LOhioHealthSodium molar puxx724 mmol/L135 - 145 mmol/LOhioHealthUrea nitrogen mass conc9 mg/dL8 - 25 mg/dLOhioHealthUrea nitrogen/Creatinine mass ratio10.0 mg/mgOhioHealthCBCon 41-73-3346Qtcglknbazj distribution width Entitic volume (RBC)15.3 %High11.6 - 14.8 %[facility] HospitalHematocrit Volume Fraction (Bld)27.7 %Low41 - 53 %[facility] Hemoglobin mass conc (Bld)8.9 g/dLLow13.5 - 17.5 g/dLOhioHealthInterpretation and review of laboratory resultsAbnormalOhioHealthH Entitic mass (RBC)31.2 pg 26 - 34 pgOhioHealthMCHC mass conc (RBC)32.1 g/dL31 - 37 g/dLOhioHealthComment on above:Cold Agglutinin presentMCV Entitic volume (RBC)97.2 fL80 - 100 fL OhioHealthNucleated RBC #/vol (Bld)0.00 10*3/uLOhioHealthNucleated RBC/100 WBC Ratio (Bld)0.0 %[facility] HospitalPlatelet mean volume Entitic volume (Bld)9.7 fL9 - 15.5 fLOhioHealthPlatelets #/vol (Bld)187 10*3/uLOhioHealthRBC #/vol (Bld)2.85 10*6/uLLowOhioHealthWBC #/vol (Bld)5.18 10*3/uLOhioHealthCreatinine, Serumon 05-87-3375Mwfqnijaha mass conc0.95 mg/dL0.8 - 1.3 mg/dLOhioHealthGFR/1.73 sq M predicted among non-blacks MDRD vol rate/area (S/P/Bld)The eGFR should be used for monitoring renal function only and not for medication dosing.[facility] GFR/1.73 sq M.predicted CKD-EPI vol rate/area (S/P/Bld)76>=60 mL/min/1.73 m2 OhioRiverview Health InstituteInterpretation and review of laboratory resultsNormalOhioHealth Gastrocult Gastricon 89-74-2695Vcwynjnnjg.gastrointestinal Ql (Ciera fld)Positive AbnormalNegative for Occult BloodOhioHealthInterpretation and review of laboratory resultsAbnormalOhioHealthHemoglobin and Hematocriton 10-09-2018 Hematocrit Volume Fraction (Bld)23.2 %Low41 - 53 %[facility] HospitalHemoglobin mass conc (Bld)8.6 g/dLLow13.5 - 17.5 g/dLOhioHealthInterpretation and review of laboratory resultsAbnormalOhioHealthXR CHEST PA/APon 43-19-7280LU CHEST PA/AP EXAMINATION: SINGLE XRAY VIEW OF [...] of underlying COPD. TRP/jw Workstation ID: [id number] Dictated by: MOJGAN PINO on MonOct 09, 2018 2:31:15 PM EST Transcribed by: MICHAEL ROBLES on MonOct 09, 2018 2:40:23 PM EST Finalized by: MOJGAN PINO on MonOct 10, 2018 8:22:38 AM [facility] CenterComment on above:Order Comment: Reason for exam?:Dyspnea Injury/Trauma or Illness?:Illness/Other How long have you had these symptoms (acute/chronic)?:Acute History of cancer?:unk Surgeries, chemotherapy, or radiation?:YES Type of Exam?:Initial Additional signs and symptoms?:naBasic Metabolic Panelon 09-66-1805Oxvle gap molar conc16 mmol/L10 - 20 mmol/LOhioHealthCalcium mass conc9.1 mg/dL8.4 - 10.2 mg/dLOhioHealthChloride molar zrgq869 mmol/L98 - 108 mmol/LOhioHealthCreatinine mass conc0.70 mg/dLLow0.8 - 1.3 mg/dLOhioHealthGFR/1.73 sq M predicted among non-blacks MDRD vol rate/area (S/P/Bld)The eGFR should be used for monitoring renal function only and not for medication dosing.OhioHealthGFR/1.73 sq M.predicted CKD-EPI vol rate/area (S/P/Bld)90>=60 mL/min/1.73 y8IxgxNcsszt Glucose mass conc90 mg/dL65 - 99 mg/dLOhioHealthHCO3 molar conc23 mmol/L21 - 32 mmol/LOhioHealthInterpretation and review of laboratory resultsAbnormal OhioHealthPotassium molar conc3.8 mmol/L3.5 - 5.1 mmol/LOhioHealthSodium molar bpod043 mmol/L135 - 145 mmol/LOhioHealthUrea nitrogen mass conc6 mg/dLLow8 - 25 mg/dLOhioHealthUrea nitrogen/Creatinine mass ratio8.6 mg/mgLowOhioHealthCBCon 74-71-7885Spxdkmpjogz distribution width Entitic volume (RBC)15.5 %High11.6 - 14.8 %[facility] HospitalHematocrit Volume Fraction (Bld)31.0 %Low41 - 53 %[facility] Hemoglobin mass conc (Bld)10.4 g/dLLow13.5 - 17.5 g/dLOhioHealthInterpretation and review of laboratory resultsAbnormalOhioHealthMCH Entitic mass (RBC)33.4 pg 26 - 34 pgOhioHealthMCHC mass conc (RBC)33.5 g/dL31 - 37 g/dLOhioHealthMCV Entitic volume (RBC)99.7 fL80 - 100 fLOhioHealthNucleated RBC #/vol (Bld)0.00 10*3/uLOhioHealthNucleated RBC/100 WBC Ratio (Bld)0.0 %[facility] HospitalPlatelet mean volume Entitic volume (Bld)9.7 fL9 - 15.5 fLOhioHealthPlatelets #/vol (Bld)202 10*3/uLOhioHealthComment on above:Platelets clumped on peripheral smear. Results may be affectedRBC #/vol (Bld)3.11 10*6/uLLowOhioHealthWBC #/vol (Bld)3.86 10*3/uLLowOhioHealthECHOCARDIOGRAM COMPLETEon 43-34-7088CYLRDWHEASJBLK COMPLETE REPORT Patient: SHERRY Bazan [facility] Rec#: [id number] (Age): 1940(78y) Height: 188(cm)/73(in) Study Date: 10/08/2018 Weight: 99(kg)/218(lbs) Room#: 2456 BSA: [id number] Type: Inpatient Loc: [facility] Echo Lab Sex: M Reading: MD Nikhil Davalos Referring: AARON CHOI DANIEL Patrol Driver: Geovani Matson RDCS, RVT History: Hyperlipidemia Hypertension. Valvular disease. Diagnosis: ICD-10-PCS Encounter for preprocedural cardiovascular examination (Z01.810) Cardiac Complications, not classified (997.1) CPT Code(s): ECHO COMPLETE W/ DOPPLER (19264) [facility] C8923 Echo Full w/ contrast. Study [...] at 10/08/2018 17:26:05 by: Emmanuel Connor MD [facility]RE[facility] Patient: SHERRY MENDOZA Kristine Rec#: [id number] (Age): 1940(78y) Height: 188(cm)/73(in) Study Date: 10/08/2018 Weight: 99(kg)/218(lbs) Room#: 2456 BSA: [id number] Type: Inpatient Loc: [facility] Echo Lab Sex: M Reading: MD Nikhil Davalos Referring: AARON CHOI DANIEL Patrol Driver: Geovani Matson RDCS, RVT History: Hyperlipidemia Hypertension. Valvular disease. Diagnosis: ICD-10-PCS Encounter for preprocedural cardiovascular examination (Z01.810) Cardiac Complications, not classified (997.1) CPT Code(s): ECHO COMPLETE W/ DOPPLER (48950) HCPCS Code C8923 Echo Full w/ contrast. Study Quality The study quality is fair. Summary: Patient identity verified and ID band on (pause and confirm). Current HP present on patient chart. Procedure explained and patient verified understanding. Definity explained to patient. Patient verbalizes understanding and agrees to proceed. Definity 1.3ml/8.7ml normal sterilesaline 2 ml total given IV over 30-60 seconds. Conclusions: There is normal left ventricular systolic function. Moderate concentric left ventricular hypertrophy is observed. The diastolic filling pattern is consistent with impaired relaxation and normal LA pressure (Mild diastolic dysfunction). Theestimated ejection fraction is 55-60%. The left atrium [...] diastolic filling pattern is consistent with impaired relaxationand normal LA pressure (Mild diastolic dysfunction). Left Atrium: The left atrium is mildly dilated. Right Ventricle: The right ventricle is moderately dilated. The right ventricular global systolic function is moderately reduced. Right Atrium: The right atrium appears normal. Aortic Valve: The aortic valve is trileaflet. Moderate aortic cusp sclerosis is present. There is no hemodynamically signi ficant stenosis. There is mild aortic regurgitation. Mitral [...] pulmonic regurgitation. Pericardium: There is no pericardial effusion.The pericardium appears grossly normal. Aorta: There is [...] % none EF Teichholz (2D) 42.92 % noneAo root diameter (2D) 4.4 cm none LA dimension (AP) 2D 4.2 cm none LA:Ao ratio (2D) 0.95 ratio noneAortic root diameter (2D) inde1.95 cm/m2 none LA dimension (2D) index 1.86 cm/m2 none Volumes/MassName Value Normal Range LA ESV SP 4CH [...] (1 - 1.7) AV peak gradient 4.08 mmHg(Less Than 36) LVOT diameter 2.2 cm (1.7 [...] none TR peak gradient 25.2 mmHg none RAP5 mmHg none RVSP 30.2 mmHg none Pulmonic Valve/Qp:Qs Name Value Normal Range PV Vmax 0.9 m/sec (0.6 - 0.9) PV peak gradient 3.23 mmHg none MA end-diastolic Vmax 1.41 m/sec none PA end- diastolic pressure 12.95 mmHg none PV acceleration time 77 msec none Electronically Signed at 10/08/2018 17:26:05 by: Emmanuel Connor MD [facility] HospitalInter[facility], Rad In [facility] Xper Echopacs - 10/08/2018 5:27 PM EST REPORT Patient: SHERRY TRISTIN Jones Rec#: [id number] (Age): 1940(78y) Height: 188(cm)/73(in) Study Date: 10/08/2018 Weight: 99(kg)/218(lbs) Room#: 2456 BSA: [id number] Type: Inpatient Loc: [facility] Echo Lab Sex: M Reading: MD Nikhil Davalos Referring: AARON CHOI DANIEL Patrol Driver: Geovani Matson RD, RVT History: Hyperlipidemia Hypertension. Valvular disease. Diagnosis: ICD-10-PCS Encounter for preprocedural cardiovascular examination (Z01.810) Cardiac Complications, not classified (997.1) CPT Code(s): ECHO COMPLETE W/ DOPPLER (66673) HCPCS Code C8923 Echo Full w/ contrast. [...] at 10/08/2018 17:26:05 by: Emmanuel Connor MD [facility] HospitalPT/INRon 22-96-4758EQR Coag RelTime (PPP)1.1 {INR}[facility] Interpretation and review of laboratory resultsNormalOhioHealthProthrombin time (PT) Coag time (PPP)13.9 sOhioHealthDuring the induction phase of oral anticoagulation, the INR may not reflect the anticoagulation status of the patient. Therapeutic ranges for INR's are: Most clinical situations: INR 2.0-3.0 Mechanical Prosthetic Valve: INR 2.5-3.5 Critical: INR >5.0OhioHealthXR FOOT LEFT 2 VIEWSon 30-69-5193YQ FOOT LEFT 2 VIEWSEXAMINATION: 2 XRAY VIEWS OF THE LEFT FOOT [...] articulations. Surgical drain present. CASSANDRA/[employer] Workstation ID: [id number] Dictated by: NAT RHODES on MonOct 08, 2018 1:43:13 PM EST Transcribed by: JAK WATSON on MonOct 08, 2018 2:16:35 PM EST Finalized by: NAT RHODES on MonOct 11, 2018 8:36:46 AM [facility] CenterComment on above:Order Comment: Reason for exam?:post-op foot / ankle Injury/Trauma or Illness?:Illness/Other How long have you had these symptoms (acute/chronic)?:Unknown History of cancer?:unk Surgeries, chemotherapy, or radiation?:YES Type of Exam?:Ongoing Additional signs and symptoms?:UNLCreatinine, Serumon 63-43-5948Rfmnrnrzdw mass conc0.70 mg/dLLow0.8 - 1.3 mg/dLOhioHealthGFR/1.73 sq M predicted among non- blacks MDRD vol rate/area (S/P/Bld)The eGFR should be used for monitoring renal function only and not for medication dosing.OhioHealthGFR/1.73 sq M.predicted CKD-EPI vol rate/area (S/P/Bld)90>=60 mL/min/1.73 j2EvogPeicfyOnbeidhdwzeftl and review of laboratory resultsAbnormalOhioHealthVancomycin Level, Troughon 90-59-5093Nxdfipzpjfuvhl and review of laboratory resultsNormalOhioHealth Vancomycin trough mass conc10.9 ug/mLOhioHealthXR FOOT LEFT 3+ VIEWS (STANDARD) on . Limited evaluation due to overlying dressing material and diffuse osteopenia. No radiographic evidence of soft tissue gas. No radiographic evidence of new area of osseous destruction. 2. No acute osseous abnormalities identified. 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 [employer] Workstation ID: [id number], Anton In Kary [facility] - 10/06/2018 3:46 PM EST EXAMINATION: 3 [...] is clinically warranted, consider MRI or CT. [employer] Workstation ID: [id number]: 3 XRAY VIEWS OF THE LEFT FOOT 10/04/2018 3:52 pm COMPARISON: 09/20/2018. HISTORY: ORDERING SYSTEM PROVIDED HISTORY: Left foot gangrene; TECHNOLOGIST PROVIDED HISTORY: Reason for Exam: Leftfoot gangrene Illness/Other Acuity: Unknown Cancer History: unk Surgery, Radiation History: unk Type of Encounter: Unknown Additional signs and symptoms: Left foot gangrene FINDINGS: Overlying dressing material somewhat limits evaluation. Diffuse osteopenia also limits evaluation. No convincing evidence of new osseous destruction. No convincing evidence of soft tissue gas. No acute fracture or dislocation. Plate and screw fixation of the distal tibia.[facility] Basic Metabolic Panelon 96-41-3379Tmrtt gap molar conc15 mmol/L10 - 20 mmol/L OhioHealthCalcium mass conc9.1 mg/dL8.4 - 10.2 mg/dLOhioHealthChloride molar cjui638 mmol/LHigh98 - 108 mmol/LOhioHealthCreatinine mass conc0.67 mg/dLLow0.8 - 1.3 mg/dLOhioHealthGFR/1.73 sq M predicted among non-blacks MDRD vol rate/area (S/P/Bld)The eGFR should be used for monitoring renal function only and not for medication dosing.[facility] HospitalGFR/1.73 sq M.predicted CKD-EPI vol rate/area (S/P/Bld)91>=60 mL/min/1.73 g1SphmOglyupKgszvmg mass conc92 mg/dL65 - 99 mg/dL [facility] HospitalHCO3 molar conc23 mmol/L21 - 32 mmol/LOhioHealthInterpretation and review of laboratory resultsAbnormalOhioHealthPotassium molar conc4.2 mmol/L3.5 - 5.1 mmol/LOhioHealthSodium molar finy239 mmol/L135 - 145 mmol/LOhioHealthUrea nitrogen mass conc9 mg/dL8 - 25 mg/dLOhioHealthUrea nitrogen/Creatinine mass ratio13.4 mg/mgOhioHealthCBCon [id number] SMEAR REVIEWED MANUALLYAkioRiverview Health InstituteErythrocyte distribution width Entitic volume (RBC)15.5 %High 11.6 - 14.8 %[facility] HospitalHematocrit Volume Fraction (Bld)31.9 %Low41 - 53 % [facility] HospitalHemoglobin mass conc (Bld)11.0 g/dLLow13.5 - 17.5 g/dLAkioHealth Interpretation and review of laboratory resultsAbnormalOhioHealthMCH Entitic mass (RBC)34.2 fyDyur74 - 34 pgOhioHealthMCHC mass conc (RBC)34.5 g/dL31 - 37 g/dLAkioHealthMCV Entitic volume (RBC)99.1 fL80 - 100 fLOhioHealthNucleated RBC #/vol (Bld)0.00 10*3/uLOhioHealthNucleated RBC/100 WBC Ratio (Bld)0.0 % OhioRiverview Health InstitutePlatelet mean volume Entitic volume (Bld)9.5 fL9 - 15.5 fLOhioHealth Platelets #/vol (Bld)237 10*3/uLOhioHealthRBC #/vol (Bld)3.22 10*6/uLLow OhioHealthWBC #/vol (Bld)3.95 10*3/uLLowOhioHealthPrewarmed Patient has cold agglutinin.[facility] HospitalCB WITH AUTO DIFFERENTIALon [id number] #/vol (Bld)0.03 10*3/uLOhioHealthBasophils/100 WBC (Bld)0.6 %[facility]HealthEosinophils #/vol (Bld)0.14 10*3/uLOhioHealthEosinophils/100 WBC (Bld)3.0 %[facility] Erythrocyte distribution width Entitic volume (RBC)15.7 %High11.6 - 14.8 % [facility] HospitalHematocrit Volume Fraction (Bld)32.7 %Low41 - 53 %[facility] HospitalHemoglobin mass conc (Bld)11.3 g/dLLow13.5 - 17.5 g/dLOhioHealthImmature granulocytes #/vol (Bld)0.02 10*3/uLOhioHealthImmature granulocytes/100 WBC (Bld)0.40 % FloridaHealthComment on above:The IG parameter is the percentage of metamyelocytes, myelocytes, and promyelocytes.Interpretation and review of laboratory results AbnormalOhioHealthLymphocytes #/vol (Bld)0.94 10*3/uLOhioHealthLymphocytes/100 WBC (Bld)20.3 %[facility]H Entitic mass (RBC)33.6 pg26 - 34 pgOhioHealthMCHC mass conc (RBC)34.6 g/dL31 - 37 g/dLOhioHealthMCV Entitic volume (RBC)97.3 fL80 - 100 fLOhioHealthMonocytes #/vol (Bld)0.46 10*3/uLOhioHealthMonocytes/100 WBC (Bld)10.0 %OhioHealthNeutrophils #/vol (Bld)3.03 10*3/uLOhioHealth Neutrophils/100 WBC (Bld)65.7 %OhioHealthNucleated RBC #/vol (Bld)0.00 10*3/uL OhioHealthNucleated RBC/100 WBC Ratio (Bld)0.0 %[facility]HealthPlatelet mean volume Entitic volume (Bld)8.5 fLLow9 - 15.5 fLOhioHealthPlatelets #/vol (Bld)248 10*3/uLOhioHealthRBC #/vol (Bld)3.36 10*6/uLLowOhioHealthWBC #/vol (Bld)4.62 10*3/uLOhioHealthCRP, Inflammationon [id number] mass conc12.5 mg/LHigh0 - 10 mg/LOhioHealthInterpretation and review of laboratory resultsAbnoWadsworth-Rittman Hospital Comprehensive Metabolic Panelon 63-36-6067Zklkqbk mass conc3.5 g/dL3.2 - 5.2 g/dLOhioHealthALP enzyme act/mmn128 U/L40 - 150 U/LOhioHealthALT enzyme act/vol 25 U/L0 - 40 U/LOhioHealthAnion gap molar conc16 mmol/L10 - 20 mmol/LOhioHealth AST enzyme act/vol25 U/L0 - 45 U/LOhioHealthBilirubin mass conc0.5 mg/dL0 - 1.3 mg/dLOhioHealthCalcium mass conc9.3 mg/dL8.4 - 10.2 mg/dLOhioHealthChloride molar xbnm644 mmol/L98 - 108 mmol/LOhioHealthCreatinine mass conc0.92 mg/dL0.8 - 1.3 mg/dLOhioHealthGFR/1.73 sq M predicted among non-blacks MDRD vol rate/area (S/P/Bld)The eGFR should be used for monitoring renal function only and not for medication dosing.OhioHealthGFR/1.73 sq M.predicted CKD-EPI vol rate/area (S/P/Bld)79>=60 mL/min/1.73 f3KtmzHdmqhfFzjmhlc mass conc94 mg/dL65 - 99 mg/dL OhioHealthHCO3 molar conc26 mmol/L21 - 32 mmol/LOhioHealthInterpretation and review of laboratory resultsNoMansfield HospitalthPotassium molar conc4.6 mmol/L3.5 - 5.1 mmol/LOhioHealthProtein mass conc6.9 g/dL6 - 8 g/dLOhioHealthSodium molar jmqr103 mmol/L135 - 145 mmol/LOhioHealthUrea nitrogen mass conc12 mg/dL8 - 25 mg/dLOhioHealthUrea nitrogen/Creatinine mass ratio13.0 mg/mgOhioHealthHemoglobin A1con 53-95-9305Isirgek glucose Estimated from glycated hemoglobin mass conc (Bld)88 mg/dL68 - 126 mg/dLOhioHealthHemoglobin A1c/Hemoglobin.total mass fraction (Bld)4.7 %4.2 - 6 %OhioHealthInterpretation and review of laboratory resultsNormalOhioHealthSedimentation Rateon 88-44-2004PWB Velocity (Bld)9 mm/h FloridaHealthInterpretation and review of laboratory resultsNormalOhioHealthXR FOOT LEFT 3+ VIEWS (STANDARD)on 84-58-6598HS FOOT LEFT 3+ VIEWS (STANDARD) EXAMINATION: 3 [...] is clinically warranted, consider MRI or CT. [facility] Workstation ID: [id number] Dictated by: MOJGAN PINO on MonOct 04, 2018 7:30:36 PM EST Transcribed by: RACHEAL ARZATE on Prerna Oct 04, 2018 7:42:46 PM EST Finalized by: MOJGAN PINO on [facility] Oct 06, 2018 3:44:00 PM [facility] CenterComment on above:Order Comment: Reason for exam?:Left foot gangrene Injury/Trauma or Illness?:Illness/Other How long have you had these symptoms (acute/chronic)?:Unknown History of cancer?:unk Surgeries, chemotherapy, or radiation?:unk Type of Exam?:Unknown Additional signs and symptoms?:Left foot gangreneAlbuminon 92-88-8444Bftccmh mass conc3.3 g/dL3.2 - 5.2 g/dLOhioHealthInterpretation and review of laboratory resultsNormalOhioHealthOtheron 17-59-7188Ef acute osseous abnormalities identified. Status post remote ORIF of the distal fibula. Extensive vascular calcifications. [employer] Workstation ID: [id number]: XR FOOT LEFT 3+ VIEWS (STANDARD); XR ANKLE LEFT 3+ VIEWS (STANDARD) HISTORY: ORDERING S YSTEM PROVIDED HISTORY: Critical lower limb ischemia, TECHNOLOGIST [...] likely sequela of remote injury. Joint spaces arepreserved. No aggressive osseous lesions or bony demineralization. Extensive vascular calcifications.[facility] - 09/21/2018 12:01 AM EST EXAMINATION: XR [...] of the medial malleolus, likely sequela of re mote injury. Joint spaces are preserved. No aggressive osseous lesions or bony demineralization. Extensive vascular calcifications. IMPRESSION: No acute osseous abnormalities identified. Status post remote ORIF of the distal fibula. Extensive vascular calcifications. [employer] Workstation ID: [id number] and review of laboratory results AbnormalOhioHealthPrealbuminon 20-75-1786Irahdcdxyk mass conc16.7 mg/dLLow20 - 40 mg/dLOhioHealthProtein,Totalon 39-01-2874Ymfokqo mass conc5.9 g/dLLow6 - 8 g/dLOhioHealthBasic Metabolic Panelon 85-62-9555Tcvvn gap molar conc12 mmol/L10 - 20 mmol/LOhioHealthCalcium mass conc8.9 mg/dL8.4 - 10.2 mg/dLOhioHealth Chloride molar gmlm099 mmol/L98 - 108 mmol/LOhioHealthCreatinine mass conc0.56 mg/dLLow0.8 - 1.3 mg/dLOhioHealthGFR/1.73 sq M predicted among non-blacks MDRD vol rate/area (S/P/Bld)The eGFR should be used for monitoring renal function only and not for medication dosing.[facility] HospitalGFR/1.73 sq M.predicted CKD-EPI vol rate/area (S/P/Bld)98>=60 mL/min/1.73 f9ShmnEyapggCjdmpvq mass nwvz728 mg/dL High65 - 99 mg/dLOhioHealthHCO3 molar conc24 mmol/L21 - 32 mmol/LOhioHealth Interpretation and review of laboratory resultsAbnormalOhioHealthPotassium molar conc4.0 mmol/L3.5 - 5.1 mmol/LOhioHealthSodium molar rcba820 mmol/MQam149 - 145 mmol/LOhioHealthUrea nitrogen mass conc12 mg/dL8 - 25 mg/dLOhioHealthUrea nitrogen/Creatinine mass ratio21.4 mg/mgHighOhioHealthCBCon 09-13-2018 Erythrocyte distribution width Entitic volume (RBC)14.1 %11.6 - 14.8 %[facility] Hematocrit Volume Fraction (Bld)25.4 %Low41 - 53 %OhioHealthHemoglobin mass conc (Bld)8.6 g/dLLow13.5 - 17.5 g/dLOhioHealthInterpretation and review of laboratory resultsAbnormOhioHealth [facility] Entitic mass (RBC)31.2 pg26 - 34 pg [facility] HospitalHC mass conc (RBC)33.9 g/dL31 - 37 g/dLOhioHealthComment on above: Cold Agglutinin presentV Entitic volume (RBC)92.0 fL80 - 100 fLOhioHealth Nucleated RBC #/vol (Bld)0.00 10*3/uLOhioHealthNucleated RBC/100 WBC Ratio (Bld) 0.0 %OhioHealthPlatelet mean volume Entitic volume (Bld)10.0 fL9 - 15.5 fL OhioHealthPlatelets #/vol (Bld)258 10*3/uLOhioHealthRBC #/vol (Bld)2.76 10*6/uL LowOhioHealthWBC #/vol (Bld)9.14 10*3/uLOhioHealthHemoglobin and Hematocriton 37-95-8683Tyqqjrotiv Volume Fraction (Bld)24.1 %Low41 - 53 %OhioHealthHemoglobin mass conc (Bld)7.7 g/dLLow13.5 - 17.5 g/dLOhioHealthInterpretation and review of laboratory resultsAbnormalOProtestant Deaconess HospitalthPT/INRon 10-06-6826TVS Coag RelTime (PPP) 1.2 {INR}HighOhioHealthInterpretation and review of laboratory resultsAbnormal [facility] HospitalProthrombin time (PT) Coag time (PPP)14.9 sHighOOhioHealthealthDuring the induction phase of oral anticoagulation, the INR may not reflect the anticoagulation status of the patient. Therapeutic ranges for INR's are: Most clinical situations: INR 2.0-3.0 Mechanical Prosthetic Valve: INR 2.5-3.5 Critical: INR >5.0OhioHealthBasic Metabolic Panelon 25-64-5717Qwgtt gap molar conc11 mmol/L10 - 20 mmol/LOhioHealthCalcium mass conc8.6 mg/dL8.4 - 10.2 mg/dL OhioRiverview Health InstituteChloride molar conc97 mmol/LLow98 - 108 mmol/LOhioHealthCreatinine mass conc0.78 mg/dLLow0.8 - 1.3 mg/dLOhioHealthGFR/1.73 sq M predicted among non-blacks MDRD vol rate/area (S/P/Bld)The eGFR should be used for monitoring renal function only and not for medication dosing.OhioHealthGFR/1.73 sq M.predicted CKD-EPI vol rate/area (S/P/Bld)86>=60 mL/min/1.73 m0LzqtNhomun Glucose mass rrks595 mg/jBEuub48 - 99 mg/dLOhioHealthHCO3 molar conc26 mmol/L21 - 32 mmol/LOhioHealthInterpretation and review of laboratory resultsAbnormal OhioHealthPotassium molar conc4.7 mmol/L3.5 - 5.1 mmol/LOhioHealthSodium molar wqgx640 mmol/RWyp854 - 145 mmol/LOhioHealthUrea nitrogen mass conc12 mg/dL8 - 25 mg/dLOhioHealthUrea nitrogen/Creatinine mass ratio15.4 mg/mgOhioHealthCBCon 03-57-3483Splnbqqoinh distribution width Entitic volume (RBC)13.8 %11.6 - 14.8 % [facility] HospitalHematocrit Volume Fraction (Bld)25.6 %Low41 - 53 %OhioRiverview Health InstituteHemoglobin mass conc (Bld)8.9 g/dLLow13.5 - 17.5 g/dLOhioHealthInterpretation and review of laboratory resultsAbnormalOhioHealMalden HospitalH Entitic mass (RBC)31.4 pg26 - 34 pg [facility] HospitalHC mass conc (RBC)34.8 g/dL31 - 37 g/dLOhioHealthComment on above: Cold Agglutinin presentMCV Entitic volume (RBC)90.5 fL80 - 100 fLOhioHealth Nucleated RBC #/vol (Bld)0.00 10*3/uLOhioHealthNucleated RBC/100 WBC Ratio (Bld) 0.0 %OhioRiverview Health InstitutePlatelet mean volume Entitic volume (Bld)10.0 fL9 - 15.5 fL OhioHealthPlatelets #/vol (Bld)272 10*3/uLOhioHealthRBC #/vol (Bld)2.83 10*6/uL LowOhioHealthWBC #/vol (Bld)10.20 10*3/uLOhioHealthWhile on heparinOhioHealth Erythrocyte distribution width Entitic volume (RBC)14.1 %11.6 - 14.8 %[facility] Hematocrit Volume Fraction (Bld)24.2 %Low41 - 53 %OhioHealthHemoglobin mass conc (Bld)8.2 g/dLLow13.5 - 17.5 g/dLOhioHealthInterpretation and review of laboratory resultsAbnormalOhiUTealMalden HospitalH Entitic mass (RBC)30.5 pg26 - 34 pg OhioRiverview Health InstituteMCHC mass conc (RBC)33.9 g/dL31 - 37 g/dLOhioHealthComment on above: Cold Agglutinin presentV Entitic volume (RBC)90.0 fL80 - 100 fLOhioHealth Nucleated RBC #/vol (Bld)0.00 10*3/uLOhioHealthNucleated RBC/100 WBC Ratio (Bld) 0.0 %[facility] HospitalPlatelet mean volume Entitic volume (Bld)9.8 fL9 - 15.5 fL OhioHealthPlatelets #/vol (Bld)246 10*3/uLOhioHealthRBC #/vol (Bld)2.69 10*6/uL LowOhioHealthWBC #/vol (Bld)9.04 10*3/uLOhioHealthHemoglobin and Hematocriton 72-78-8135Fyrmkkhxun Volume Fraction (Bld)20.5 %Low41 - 53 %[facility] HospitalHemoglobin mass conc (Bld)8.1 g/dLLow13.5 - 17.5 g/dLOhioHealthComment on above:Peripheral smear reviewed manuallyInterpretation and review of laboratory resultsAbnormal [facility] HospitalPT/INRon 97-12-7077LEW Coag RelTime (PPP)1.2 {INR}HighAkioHealth Interpretation and review of laboratory resultsAbnoWadsworth-Rittman HospitalProthrombin time (PT) Coag time (PPP)14.6 sHighOOhioHealthealthDuring the induction phase of oral anticoagulation, the INR may not reflect the anticoagulation status of the patient. Therapeutic ranges for INR's are: Most clinical situations: INR 2.0-3.0 Mechanical Prosthetic Valve: INR 2.5-3.5 Critical: INR >5.0OhioHealthBasic Metabolic Panelon 52-42-7360Pfvnw gap molar conc15 mmol/L10 - 20 mmol/L OhioHealthCalcium mass conc8.9 mg/dL8.4 - 10.2 mg/dLOhioHealthChloride molar conc95 mmol/LLow98 - 108 mmol/LOhioHealthCreatinine mass conc0.65 mg/dLLow0.8 - 1.3 mg/dLOhioHealthGFR/1.73 sq M predicted among non-blacks MDRD vol rate/area (S/P/Bld)The eGFR should be used for monitoring renal function only and not for medication dosing.OhioHealthGFR/1.73 sq M.predicted CKD-EPI vol rate/area (S/P/Bld)93>=60 mL/min/1.73 u1JhbnUgijsbHienuxw mass cmlp794 mg/cSDsms27 - 99 mg/dLOhioHealthHCO3 molar conc26 mmol/L21 - 32 mmol/LOhioHealthInterpretation and review of laboratory resultsAbnormalOhioHealthPotassium molar conc4.8 mmol/L 3.5 - 5.1 mmol/LOhioHealthComment on above:Slightly HemolyzedSodium molar conc 131 mmol/QRhr845 - 145 mmol/LOhioHealthUrea nitrogen mass conc11 mg/dL8 - 25 mg/dLOhioHealthUrea nitrogen/Creatinine mass ratio16.9 mg/mgOhioHealthCBCon 38-93-1358Icgfivyqdzm distribution width Entitic volume (RBC)13.3 %11.6 - 14.8 % [facility] HospitalHematocrit Volume Fraction (Bld)24.4 %Low41 - 53 %OhioRiverview Health InstituteHemoglobin mass conc (Bld)8.1 g/dLLow13.5 - 17.5 g/dLOhioHealthInterpretation and review of laboratory resultsAbnormalOhioHealthMCH Entitic mass (RBC)30.5 pg26 - 34 pg OhioHealthMCHC mass conc (RBC)33.2 g/dL31 - 37 g/dLOhioHealthComment on above: Cold Agglutinin presentMCV Entitic volume (RBC)91.7 fL80 - 100 fLOhioHealth Nucleated RBC #/vol (Bld)0.00 10*3/uLOhioHealthNucleated RBC/100 WBC Ratio (Bld) 0.0 %OhioHealthPlatelet mean volume Entitic volume (Bld)9.8 fL9 - 15.5 fL OhioHealthPlatelets #/vol (Bld)249 10*3/uLOhioHealthRBC #/vol (Bld)2.66 10*6/uL LowOhioHealthWBC #/vol (Bld)7.28 10*3/uLOhioHealthPREPARE RBCon 92-72-8566GLK and Rh group Nom (Bld)O PosOhioHealthABO and Rh group Nom (Bld)5100OhioHealth Cross MatchCompatibleOhioHealthProtein mass concRed Blood CellsOhioHealthProtein mass qrgaD2403J72GntyQukfdkGtsqhl InfoTransfusedOhioHealthUnit Number [id number]/INRon 16-51-4074OMQ Coag RelTime (PPP)1.2 {INR}High OhioHealthInterpretation and review of laboratory resultsAbnormalOhioHealth Prothrombin time (PT) Coag time (PPP)14.7 sHighOhioHealthDuring the induction phase of oral anticoagulation, the INR may not reflect the anticoagulation stat us of the patient. Therapeutic ranges for INR's are: Most clinical situations: INR 2.0-3.0 Mechanical Prosthetic Valve: INR 2.5-3.5 Critical: INR >5.0 OhioHealthType and Screenon 68-75-8001RQO and Rh group Nom (Bld)O Positive OhioHealthBlood group antibody screen QlNegativeOhioHealthSpecimen Expires 09/14/2018 23:59 ESTOhioHealthBasic Metabolic Panelon 66-41-7023Wvkcd gap molar conc13 mmol/L10 - 20 mmol/LOhioHealthCalcium mass conc8.9 mg/dL8.4 - 10.2 mg/dL OhioHealthChloride molar conc99 mmol/L98 - 108 mmol/LOhioHealthCreatinine mass conc0.67 mg/dLLow0.8 - 1.3 mg/dLOhioHealthGFR/1.73 sq M predicted among non- blacks MDRD vol rate/area (S/P/Bld)The eGFR should be used for monitoring renal function only and not for medication dosing.OhioHealthGFR/1.73 sq M.predicted CKD-EPI vol rate/area (S/P/Bld)91>=60 mL/min/1.73 x7ScrtGdfrwnJsqbofu mass conc 116 mg/dXWrga80 - 99 mg/dLOhioHealthHCO3 molar conc27 mmol/L21 - 32 mmol/L OhioHealthInterpretation and review of laboratory resultsAbnormalOhiNewark Hospital Potassium molar conc4.6 mmol/L3.5 - 5.1 mmol/LOhioHealthSodium molar fecf798 mmol/YJdi586 - 145 mmol/LOhioHealthUrea nitrogen mass conc12 mg/dL8 - 25 mg/dL OhioRiverview Health InstituteUrea nitrogen/Creatinine mass ratio17.9 mg/mgOhioHealthCBCon 12-37-6557Ytgyxpzdtys distribution width Entitic volume (RBC)13.2 %11.6 - 14.8 % OhioHealthHematocrit Volume Fraction (Bld)22.2 %Low41 - 53 %OhioRiverview Health InstituteHemoglobin mass conc (Bld)7.6 g/dLLow13.5 - 17.5 g/dLOhioHealthInterpretation and review of laboratory resultsAbnormalOhioHealthMCH Entitic mass (RBC)32.5 pg26 - 34 pg OhioHealthMCHC mass conc (RBC)34.2 g/dL31 - 37 g/dLFostoria City HospitalMCV Entitic volume (RBC)94.9 fL80 - 100 fLOhioHealthNucleated RBC #/vol (Bld)0.00 10*3/uLOhioHealth Nucleated RBC/100 WBC Ratio (Bld)0.0 %OhioHealthPlatelet mean volume Entitic volume (Bld)9.3 fL9 - 15.5 fLOhioHealthPlatelets #/vol (Bld)246 10*3/uL OhioHealthRBC #/vol (Bld)2.34 10*6/uLLowOhioHealthWBC #/vol (Bld)7.13 10*3/uL OhioHealthWhile on heparinOhioHealthErythrocyte distribution width Entitic volume (RBC)13.2 %11.6 - 14.8 %OhioHealthHematocrit Volume Fraction (Bld)22.0 % Low41 - 53 %OhioHealthHemoglobin mass conc (Bld)7.5 g/dLLow13.5 - 17.5 g/dL OhioHealthInterpretation and review of laboratory resultsAbnormalOUniversity Hospitals Portage [facility] Center Entitic mass (RBC)32.1 pg26 - 34 pgOhioHealthMCHC mass conc (RBC)34.1 g/dL31 - 37 g/dLFort Hamilton HospitalV Entitic volume (RBC)94.0 fL80 - 100 fLOhioHealthNucleated RBC #/vol (Bld)0.00 10*3/uLOhioHealthNucleated RBC/100 WBC Ratio (Bld)0.0 % [facility] HospitalPlatelet mean volume Entitic volume (Bld)9.2 fL9 - 15.5 fLOhioHealth Platelets #/vol (Bld)234 10*3/uLOhioHealthRBC #/vol (Bld)2.34 10*6/uLLow OhioHealthWBC #/vol (Bld)7.34 10*3/uLOhioHealthEKGon 49-12-5093Qffcgxd by an unspecified provider. OhioHealthPT/INRon 33-99-2885DWK Coag RelTime (PPP)1.2 {INR}[facility] Interpretation and review of laboratory resultsAbnoWadsworth-Rittman HospitalProthrombin time (PT) Coag time (PPP)14.4 sHighOOhioHealthealthDuring the induction phase of oral anticoagulation, the INR may not reflect the anticoagulation status of the patient. Therapeutic ranges for INR's are: Most clinical situations: INR 2.0-3.0 Mechanical Prosthetic Valve: INR 2.5-3.5 Critical: INR >5.0OhioHealthUS Doppler ankle/brachial indexon 85-35-7709Ekn-Invasive Vascular Patient: SHERRY Bazan [facility] Rec#: [id number] (Age): 1940(78y) Study Date: 09/10/2018 Room#: 8506 Type: Inpatient Sex: M Reading: [place] Reading: Ben Hahn MD, RPVI Referring: Esau Alejandro Stock Cutter: Andre Madrid RDCS/RVT Procedure Info: [id number] Study Quality: Lower Arterial Doppler: adequate Diagnosis: [...] at 09/10/2018 17:30:46 by: Ben Hahn MD, RPLUIZA [facility] - 09/10/2018 5:37 PM EST Non- Invasive Vascular Patient: SHERRY Bazan [facility] Rec#: [id number] (Age): 1940(78y) Study Date: 09/10/2018 Room#: 8506 Type: Inpatient Sex: M Reading: [place] Reading: Ben Hahn MD, JEOVANYVI Referring: Esau Alejandro Stock Cutter: Andre Madrid RDCS/RVLatricia Procedure Info: [id number] Study Quality: Lower Arterial Doppler: adequate Diagnosis: [...] 09/10/2018 17:30:46 by: Ben Hahn MD, RPVI [facility] Metabolic Panelon 08-03-7911Ehqkc gap molar conc12 mmol/L10 - 20 mmol/LOhioHealthCalcium mass conc8.9 mg/dL8.4 - 10.2 mg/dLOhioHealthChloride molar conc99 mmol/L98 - 108 mmol/LOhioHealthCreatinine mass conc0.71 mg/dLLow0.8 - 1.3 mg/dLOhioHealthGFR/1.73 sq M predicted among non-blacks MDRD vol rate/area (S/P/Bld)The eGFR should be used for monitoring renal function only and not for medication dosing.FloridaHealthGFR/1.73 sq M.predicted CKD-EPI vol rate/area (S/P/Bld)89>=60 mL/min/1.73 r3SxysXgoeeiHsnccmy mass crqt109 mg/dLHigh 65 - 99 mg/dLOhioHealthHCO3 molar conc28 mmol/L21 - 32 mmol/LOhioHealth Interpretation and review of laboratory resultsAbnormalOhioHealthPotassium molar conc4.3 mmol/L3.5 - 5.1 mmol/LOhioHealthSodium molar eatv211 mmol/L135 - 145 mmol/LOhioHealthUrea nitrogen mass conc13 mg/dL8 - 25 mg/dLOhioHealthUrea nitrogen/Creatinine mass ratio18.3 mg/mgOhioHealthCBCon 42-96-7420Jenazvuohwb distribution width Entitic volume (RBC)13.2 %11.6 - 14.8 %[facility] HospitalHematocrit Volume Fraction (Bld)23.0 %Low41 - 53 %OhioHealthHemoglobin mass conc (Bld)7.7 g/dLLow13.5 - 17.5 g/dLOhioHealthComment on above:Cold Agglutinin present Interpretation and review of laboratory resultsAbnormalOhioHealthMCH Entitic mass (RBC)30.4 pg26 - 34 pgOhioHealthMCHC mass conc (RBC)33.5 g/dL31 - 37 g/dL OhioRiverview Health InstituteMCV Entitic volume (RBC)90.9 fL80 - 100 fLOhioHealthNucleated RBC #/vol (Bld)0.00 10*3/uLOhioHealthNucleated RBC/100 WBC Ratio (Bld)0.0 % OhioRiverview Health InstitutePlatelet mean volume Entitic volume (Bld)9.4 fL9 - 15.5 fLOhioHealth Platelets #/vol (Bld)207 10*3/uLOhioHealthRBC #/vol (Bld)2.53 10*6/uLLow OhioHealthWBC #/vol (Bld)6.48 10*3/uLOhioHealthHemoglobin and Hematocriton 33-86-3744Houvlkmziq Volume Fraction (Bld)22.8 %Low41 - 53 %OhioHealthHemoglobin mass conc (Bld)8.0 g/dLLow13.5 - 17.5 g/dLOhioHealthInterpretation and review of laboratory resultsAbnormalOhioHealthHematocrit Volume Fraction (Bld)22.9 %Low 41 - 53 %OhioHealthHemoglobin mass conc (Bld)7.7 g/dLLow13.5 - 17.5 g/dL OhioHealthInterpretation and review of laboratory resultsAbnormalOhioHealth PT/INRon 00-14-9053LEC Coag RelTime (PPP)1.2 {INR}HighOhioHealthInterpretation and review of laboratory resultsAbnormalOhioHealthProthrombin time (PT) Coag time (PPP)15.1 sHighOhioHealthDuring the induction phase of oral anticoagulation, the INR may not reflect the anticoagulation status of the patient. Therapeutic ranges for INR's are: Most clinical situations: INR 2.0-3.0 Mechanical Prosthetic Valve: INR 2.5-3.5 Critical: INR >5.0OhioHealthBasic Metabolic Panelon 00-35-6700Bwwxy gap molar conc16 mmol/L10 - 20 mmol/L OhioHealthCalcium mass conc9.0 mg/dL8.4 - 10.2 mg/dLOhioHealthChloride molar conc99 mmol/L98 - 108 mmol/LOhioHealthCreatinine mass conc0.56 mg/dLLow0.8 - 1.3 mg/dLOhioHealthGFR/1.73 sq M predicted among non-blacks MDRD vol rate/area (S/P/Bld)The eGFR should be used for monitoring renal function only and not for medication dosing.OhioHealthGFR/1.73 sq M.predicted CKD-EPI vol rate/area (S/P/Bld)98>=60 mL/min/1.73 b7VtwiHjgoiyInxvuhk mass xjml533 mg/kAYwve26 - 99 mg/dLOhioHealthHCO3 molar conc23 mmol/L21 - 32 mmol/LOhioHealthInterpretation and review of laboratory resultsAbnormalOhioHealthPotassium molar conc4.5 mmol/L 3.5 - 5.1 mmol/LOhioHealthSodium molar gzdl017 mmol/FFkf223 - 145 mmol/L OhioHealthUrea nitrogen mass conc8 mg/dL8 - 25 mg/dLOhioHealthUrea nitrogen/Creatinine mass ratio14.3 mg/mgOhioHealthCBCon 83-45-2696Cribowntcze distribution width Entitic volume (RBC)12.9 %11.6 - 14.8 %[facility] HospitalHematocrit Volume Fraction (Bld)29.9 %Low41 - 53 %[facility] HospitalHemoglobin mass conc (Bld)10.0 g/dLLow13.5 - 17.5 g/dLOhioHealthInterpretation and review of laboratory results AbnormalOhioHealthH Entitic mass (RBC)30.3 pg26 - 34 pgOhioHealthMCHC mass conc (RBC)33.4 g/dL31 - 37 g/dLOhioHealthComment on above:Cold Agglutinin presentMCV Entitic volume (RBC)90.6 fL80 - 100 fLOhioHealthNucleated RBC #/vol (Bld)0.00 10*3/uLOhioHealthNucleated RBC/100 WBC Ratio (Bld)0.0 %[facility] Platelet mean volume Entitic volume (Bld)10.5 fL9 - 15.5 fLOhioHealthPlatelets #/vol (Bld)209 10*3/uLOhioHealthRBC #/vol (Bld)3.30 10*6/uLLowOhioHealthWBC #/vol (Bld)11.23 10*3/uLHighOhioHealthPT/INRon 90-31-9609LOR Coag RelTime (PPP) 1.2 {INR}HighOhioHealthInterpretation and review of laboratory resultsAbnormal [facility] HospitalProthrombin time (PT) Coag time (PPP)14.9 sHighOhioHealthDuring the induction phase of oral anticoagulation, the INR may not reflect the anticoagulation status of the patient. Therapeutic ranges for INR's are: Most clinical situations: INR 2.0-3.0 Mechanical Prosthetic Valve: INR 2.5-3.5 Critical: INR >5.0OhioHealthXR Fluoroscopy Timeon 47-83-2325Rmjw is an auto finalized result. Please refer to patient chart for further information. OhioHealthXR OR Angio Addon 11-07-8349Vlkf is an auto finalized result. Please refer to patient chart for further information.OhioHealthAPTTon 44-82-6556iTDX Coag time (Bld)74 sHighOhioHealthaPTT Coag time (Bld)Therapeutic range for APTT's is 68 - 104 secondsOhioHealthInterpretation and review of laboratory resultsAbnormalOhioHealthaPTT Coag time (Bld)47 sHighOhioHealthaPTT Coag time (Bld)Therapeutic range for APTT's is 68 - 104 secondsOhioHealthaPTT Coag time (Bld)38 sHighOhioHealthaPTT Coag time (Bld)Results checked. Therapeutic range for APTT's is 68 - 104 secondsOhioHealthInterpretation and review of laboratory resultsAbnormalOhioHealthBasic Metabolic Panelon 97-40-9733Fxkvq gap molar conc 15 mmol/L10 - 20 mmol/LOhioHealthCalcium mass conc9.4 mg/dL8.4 - 10.2 mg/dL OhioHealthChloride molar conc99 mmol/L98 - 108 mmol/LOhioHealthCreatinine mass conc0.69 mg/dLLow0.8 - 1.3 mg/dLOhioHealthGFR/1.73 sq M predicted among non- blacks MDRD vol rate/area (S/P/Bld)The eGFR should be used for monitoring renal function only and not for medication dosing.OhioHealthGFR/1.73 sq M.predicted CKD-EPI vol rate/area (S/P/Bld)90>=60 mL/min/1.73 d9GknrSalhkvVbgdmlw mass conc 110 mg/eCAcea93 - 99 mg/dLOhioHealthHCO3 molar conc25 mmol/L21 - 32 mmol/L OhioHealthInterpretation and review of laboratory resultsAbnormMemorial Health Systemealth Potassium molar conc4.0 mmol/L3.5 - 5.1 mmol/LOhioHealthSodium molar plik823 mmol/L135 - 145 mmol/LOhioHealthUrea nitrogen mass conc9 mg/dL8 - 25 mg/dL OhioHealthUrea nitrogen/Creatinine mass ratio13.0 mg/mgOhioHealthCBCon 58-44-4260Wsuckucissl distribution width Entitic volume (RBC)12.9 %11.6 - 14.8 % OhioHealthHematocrit Volume Fraction (Bld)31.6 %Low41 - 53 %OhioHealthHemoglobin mass conc (Bld)10.8 g/dLLow13.5 - 17.5 g/dLOhioHealthInterpretation and review of laboratory resultsAbnormalOhioHealThe Jewish Hospital Entitic mass (RBC)30.9 pg26 - 34 pg [facility] HospitalHC mass conc (RBC)34.2 g/dL31 - 37 g/dLOhioHealthComment on above: Cold Agglutinin presentV Entitic volume (RBC)90.3 fL80 - 100 fLOhioHealth Nucleated RBC #/vol (Bld)0.00 10*3/uLOhioHealthNucleated RBC/100 WBC Ratio (Bld) 0.0 %OhioHealthPlatelet mean volume Entitic volume (Bld)10.1 fL9 - 15.5 fL OhioHealthPlatelets #/vol (Bld)212 10*3/uLOhioHealthRBC #/vol (Bld)3.50 10*6/uL LowOhioHealthWBC #/vol (Bld)5.93 10*3/uLOhioHealthOtheron 09-07-2018 Interpretation and review of laboratory resultsAbnormalOhioHealthPT/INRon 53-66-1285CUG Coag RelTime (PPP)1.2 {INR}HighOhioHealthProthrombin time (PT) Coag time (PPP)14.7 sHighOhioHealthDuring the induction phase of oral anticoagulation, the INR may not reflect the anticoagulation status of the patient. Therapeutic ranges for INR's are: Most clinical situations: INR 2.0-3.0 Mechanical Prosthetic Valve: INR 2.5-3.5 Critical: INR >5.0OhioHealthXR Chest 1 Viewon 94-09-0084Axthuwtos, Rad In [facility] Speechq - 09/07/2018 9:53 AM EST EXAMINATION: AP CHEST HISTORY: Hypoxia. COMPARISON: 08/01/2018 from [facility]. 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 Coronary artery stents are visualized. Minimal linear scarring at the lung bases, unchanged. No pneumothorax. No definite pleural effusion no new opacities. IMPRESSION: Stable chest. No acute disease. [facility] Workstation ID: [id number]: AP CHEST HISTORY: Hypoxia. COMPARISON: 08/01/2018 from [facility]. 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 Coronary artery stents are visualized. Minimal linear scarring at the lung bases, unchanged. No pneumothorax. No definite pleural effusion no new opacities.OhioHealthStable chest. No acute disease. [facility] Workstation ID: [id number] VERIFICATIONon 48-32-8722ZPT and Rh group Nom (Bld)O PositiveOhioHealthABO and Rh group Nom (Bld)ABO/Rh VerificationOhioHealthPatient's ABO/Rh is verified. [facility] Metabolic Panelon 86-21-0325Qckkn gap molar conc13 mmol/L10 - 20 mmol/LOhioHealthCalcium mass conc9.5 mg/dL8.4 - 10.2 mg/dLOhioHealthChloride molar ecyo768 mmol/L98 - 108 mmol/LOhioHealthCreatinine mass conc0.68 mg/dLLow 0.8 - 1.3 mg/dLOhioHealthGFR/1.73 sq M predicted among non-blacks MDRD vol rate/area (S/P/Bld)The eGFR should be used for monitoring renal function only and not for medication dosing.FloridaHealthGFR/1.73 sq M.predicted CKD-EPI vol rate/area (S/P/Bld)91>=60 mL/min/1.73 a1ShmxLzwtkdMpuqhfl mass conc98 mg/dL65 - 99 mg/dLOhioHealthHCO3 molar conc27 mmol/L21 - 32 mmol/LOhioHealthInterpretation and review of laboratory resultsAbnormalOhioHealthPotassium molar conc4.2 mmol/L3.5 - 5.1 mmol/LOhioHealthSodium molar saok731 mmol/L135 - 145 mmol/L OhioHealthUrea nitrogen mass conc9 mg/dL8 - 25 mg/dLOhioHealthUrea nitrogen/Creatinine mass ratio13.2 mg/mgOhioHealthCBCon 91-05-5625Cexrgjbghgw distribution width Entitic volume (RBC)13.1 %11.6 - 14.8 %OhioHealthHematocrit Volume Fraction (Bld)30.7 %Low41 - 53 %OhioHealthHemoglobin mass conc (Bld)10.4 g/dLLow13.5 - 17.5 g/dLOhioHealthInterpretation and review of laboratory results AbnormalOhioHealthMCH Entitic mass (RBC)31.0 pg26 - 34 pgOhioHealthMCHC mass conc (RBC)33.9 g/dL31 - 37 g/dLOhioHealthComment on above:Cold Agglutinin presentMCV Entitic volume (RBC)91.6 fL80 - 100 fLOhioHealthNucleated RBC #/vol (Bld)0.00 10*3/uLOhioHealthNucleated RBC/100 WBC Ratio (Bld)0.0 %[facility] Platelet mean volume Entitic volume (Bld)9.9 fL9 - 15.5 fLOhioHealthPlatelets #/vol (Bld)209 10*3/uLOhioHealthRBC #/vol (Bld)3.35 10*6/uLLowOhioHealthWBC #/vol (Bld)6.34 10*3/uLOhioHealthWhile on heparinOhioHealthErythrocyte distribution width Entitic volume (RBC)12.6 %11.6 - 14.8 %OhioHealthHematocrit Volume Fraction (Bld)32.0 %Low41 - 53 %OhioHealthHemoglobin mass conc (Bld)10.7 g/dLLow13.5 - 17.5 g/dLOhioHealthComment on above:Peripheral smear reviewed manuallyInterpretation and review of laboratory resultsAbnormalOhioHealthH Entitic mass (RBC)29.9 pg26 - 34 pgOhioHealthMCHC mass conc (RBC)33.4 g/dL31 - 37 g/dLOhioHealthComment on above:Cold Agglutinin presentMCV Entitic volume (RBC)89.4 fL80 - 100 fLOhioHealthNucleated RBC #/vol (Bld)0.00 10*3/uLOhioHealth Nucleated RBC/100 WBC Ratio (Bld)0.0 %OhioHealthPlatelet mean volume Entitic volume (Bld)9.6 fL9 - 15.5 fLOhioHealthPlatelets #/vol (Bld)232 10*3/uL OhioHealthRBC #/vol (Bld)3.58 10*6/uLLowOhioHealthWBC #/vol (Bld)7.03 10*3/uL OhioHealthSaphenous vein mapping, limitedon 37-58-1470Knmuuwbev, Rad In Heartlab Xper Echopacs - 09/06/2018 11:52 AM EST Non-Invasive Vascular Patient: SHERRY Jones Rec#: [id number] (Age): 1940(78y) Study Date: 09/06/2018 Room#: 3386 Type: Inpatient Sex: M Reading: Manuel Leonard MD, NATANAEL, RVT Referring: ARISTEO Stock Cutter: Conrad Jeffers RDCS, RVT Procedure Info: [id number] Study Quality: Lower Vein Map: limited Study Limitations: Lower Vein Map: The exam was technically difficult due to patient positioning. Diagnosis: I73.9 Peripheral vascular disease, unspecified Lower Vein Map Conclusions Patent and compressible great saphenous (GSV) [...] 09/06/2018 11:49:41 by: Manuel Leonard MD, NATANAEL, LIANNEMercy Health Allen HospitalNon-Invasive Vascular Patient: SHERRY Bazan [facility] Rec#: [id number] (Age): 1940(78y) Study Date: 09/06/2018 Room#: 3386 Type: Inpatient Sex: M Reading: Manuel Leonard MD, NATANAEL, DENIZT Referring: ARISTEO Stock Cutter: Conrad Jeffers RDCS, RVT Procedure Info: [id number] Study Quality: Lower Vein Map: limited Study Limitations: Lower Vein Map: The exam was technically difficult due to patient positioning. Diagnosis: I73.9 Peripheral vascular disease, unspecified Lower Vein Map Conclusions Patent and compressible great saphenous (GSV) [...] 11:49:41 by: Manuel Leonard MD, RPVI, RVT OhioHealthType and Screenon 41-38-0132DZQ and Rh group Nom (Bld)O Positive OhioRiverview Health InstituteBlood group antibody screen QlNegativeOhioHealthSpecimen Expires 09/09/2018 23:59 ESTOhioHealthAPTTon 07-90-7634tGNL Coag time (Bld)Therapeutic range for APTT's is 68 - 104 secondsOhioHealthaPTT Coag time (Bld)59 [facility] CenterInterpretation and review of laboratory resultsAbnormalOhioHealthaPTT Coag time (Bld)50 sHighOhioHealthaPTT Coag time (Bld)Therapeutic range for APTT's is 68 - 104 secondsOhioHealthBasic Metabolic Panelon 86-54-6288Vuxhs gap molar conc14 mmol/L10 - 20 mmol/LOhioHealthCalcium mass conc9.3 mg/dL8.4 - 10.2 mg/dLOhioHealthChloride molar vyzb402 mmol/L98 - 108 mmol/LOhioHealthCreatinine mass conc0.65 mg/dLLow0.8 - 1.3 mg/dLOhioHealthGFR/1.73 sq M predicted among non-blacks MDRD vol rate/area (S/P/Bld)The eGFR should be used for monitoring renal function only and not for medication dosing.OhioHealthGFR/1.73 sq M.predicted CKD-EPI vol rate/area (S/P/Bld)93>=60 mL/min/1.73 q0UksoRxmqvv Glucose mass conc91 mg/dL65 - 99 mg/dLOhioHealthHCO3 molar conc25 mmol/L21 - 32 mmol/LOhioHealthPotassium molar conc3.9 mmol/L3.5 - 5.1 mmol/LOhioHealthSodium molar gppo064 mmol/L135 - 145 mmol/LOhioHealthUrea nitrogen mass conc6 mg/dLLow8 - 25 mg/dLOhioHealthUrea nitrogen/Creatinine mass ratio9.2 mg/mgLowOhioHealth CARDIAC CATHETERIZATIONon 61-59-8760Byiyfsmsf, Rad In Heartlab Xper Echopacs - 09/05/2018 4:14 PM EST Patient Name: TRISTIN POWELL Date of : 1940 Procedure Date: 09/05/2018 Physician(s): Ben Hahn MD Cath #: [id number] Ref. Physician: PROCEDURE(S) PERFORMED: Ultrasound- guided vascular access Aortogram: Abdominal with runoff-bilateral Peripheral Angiography Lower Extremity Angiogram - Left Clinical History: Prior CABG: Yes Peripheral Arterial Disease: Yes, , with prior peripheral CSM CONSULTANT. Dyslipidemia: Yes Hypertension: Yes Pre-OP Diagnosis/Indication: [place] Class/Limb Ischemia: 4 - Ischemic rest pain [...] amputation COMMENTS: No Complications ____ Equipment: Sheath(s) iGuiders 5F 10CM PINNACLE SHEATH Glassbeam 6F 45CM .038 FLEXOR CHECKFLO ANSEL1 SHEATH Wire(s) [employer] .035 X 150CM FIXED J WIRE Catheter(s) [employer] 5F MP TEMPO AQUA CATHETER Other Glassbeam .035 CXI ANGLED SUPPORT CATHETERS SHER VASCULAR 6F PROGLIDE CLOSURE Peripheral Angiography: Access site: Femoral Right Retrograde arterial with ultrasound guidance Non Selective: Aorta with ilio-fem runoff Selective: Tibioperoneal artery, retrograde - left See Nursing Notes for further details Signed By Ben Hahn MD On 09/05/2018 3:50:45 PM Ben Hahn MD ____OhioHealthPatient Name: TRISTIN POWELL Date of : 1940 Procedure Date: 09/05/2018 Physician(s): Ben Hanh MD Cath #: [id number] Ref. Physician: PROCEDURE(S) PERFORMED: Ultrasound- guided vascular access Aortogram: Abdominal with runoff-bilateral Peripheral Angiography Lower Extremity Angiogram - Left Clinical History: Prior CABG: Yes Peripheral Arterial Disease: Yes, , with prior peripheral CSM CONSULTANT. Dyslipidemia: Yes Hypertension: Yes Pre-OP Diagnosis/Indication: Deann [...] Closure device placed by - Dr. Ben Hhan PERIPHERAL FINDINGS: Common Iliac Artery Bilateral Mild [...] amputation COMMENTS: No Complications ____ Equipment: Sheath(s) iGuiders 5F 10CM PINNACLE SHEATH Glassbeam 6F 45CM .038 FLEXOR CHECKFLO ANSEL1 SHEATH Wire(s) [employer] .035 X 150CM FIXED J WIRE Catheter(s) [employer] 5F MP TEMPO AQUA CATHETER Other Glassbeam .035 CXI ANGLED SUPPORT CATHETERS SHER VASCULAR 6F PROGLIDE CLOSURE Peripheral Angiography: Access site: Femoral Right Retrograde arterial with ultrasound guidance Non Selective: Aorta with ilio-fem runoff Selective: Tibioperoneal artery, retrograde - left See Nursing Notes for further details Signed By Ben Hahn MD On 09/05/20183:50:45 PM Ben Hahn MD ____ OhioHealthCBCon 59-15-5183Tibdyypyxcx distribution width Entitic volume (RBC) 12.8 %11.6 - 14.8 %OhioHealthHematocrit Volume Fraction (Bld)31.8 %Low41 - 53 % OhioHealthHemoglobin mass conc (Bld)10.7 g/dLLow13.5 - 17.5 g/dLAkioHealth Interpretation and review of laboratory resultsAbnormalOhioHealthMCH Entitic mass (RBC)30.5 pg26 - 34 pgOhioHealthMCHC mass conc (RBC)33.6 g/dL31 - 37 g/dL OhioHealthMCV Entitic volume (RBC)90.6 fL80 - 100 fLOhioHealthNucleated RBC #/vol (Bld)0.00 10*3/uLOhioHealthNucleated RBC/100 WBC Ratio (Bld)0.0 % OhioHealthPlatelet mean volume Entitic volume (Bld)9.2 fL9 - 15.5 fLOhioHealth Platelets #/vol (Bld)224 10*3/uLOhioHealthRBC #/vol (Bld)3.51 10*6/uLLow OhioHealthWBC #/vol (Bld)5.56 10*3/uLOhioHealthECG 12-LEADon 88-81-0053Loiktx Sade08DJCVpsiFbsvfuK Fclp16poglmqrEjroFjetzeP-H Ydgkmghj325 msOhioHealthQ-T Asbxhnsq819 msOhioHealthQRS Rfpzbyle58 msOhioHealthQTC Calculation (Bezet)474 ms OhioHealthR Ocdu56xkqeetdUonyEcqylsY Dmni94snsaidbDrjgKdzknwEdkmzyvonva Rate88 BPMOhioHealthNormal sinus rhythm Nonspecific ST and T wave abnormality Abnormal ECG Confirmed by YAW DIAZ, CHAYO ([id number]) on 09/05/2018 7:19:56 PMOhioHealth Atrial Jpsx73CVSHdmzHxsglrV Bbir9ayrlihkTeqrEyqtpoZ-A Uiskuwvh537 msOhioHealthQ- T Neqqykek170 msOhioHealthQRS Jthmcqda85 msOhioHealthQTC Calculation (Bezet)482 msOhioHealthR Neoq67amdzhtwImbiTclmtyN Vhnq10jrbeqpnUxnyOcmlarMesafslqpyh Rate94 BPMOhioHealthNormal sinus rhythm Prolonged QT Abnormal ECG Confirmed by YAW DIAZ, CHAYO ([id number]) on 09/05/2018 6:55:30 PMOhioHealthOtheron 07-60-7301Zfaiiomthsjixu and review of laboratory resultsAbnormalOOhioHealthealth Ultrasound duplex arterial leg lefton 61-58-7800Hul-Invasive Vascular Patient: SHERRY Bazan [facility] Rec#: [id number] (Age): 1940(78y) Study Date: 09/05/2018 Room#: G93 Type: Inpatient Sex: M Reading: Pierce Moreau DO, RPVI Referring: LEVY Stock Cutter: Rima Celestin RDCS, RVT Stock Cutter: Deena Pelayo RDCS RVT Procedure Info: [id number] Study Quality: Lower Arterial Duplex: adequate Diagnosis: [...] PSV Name Value Units EIA 83.2 cm/sec INDUSTRIAL YARD BRAKE COUPLER 95.6 cm/sec Profunda 85.5 cm/sec SFA - prox -25 cm/sec SFA - mid -67.2 cm/sec SFA - dist 58.2 cm/sec Popliteal - dist 0 cm/sec CSM CONSULTANT 6.8 cm/sec Pre Stenosis #1 9.3 cm/sec Within Stenosis #1 67.2 cm/sec Distal Stenois #1 58.2 cm/sec Left Stent #1 Name Value Units Pre 58.2 cm/sec Orig/Prox 0 cm/sec Mid 0 cm/sec Dist 0 cm/sec Distal To 6.8 cm/sec Electronically signed at 09/05/2018 11:55:51 by: Pierce Moreau DO, RPVI [facility], Rad In Heartlab Xper Echopacs - 09/05/2018 12:10 PM EST Non-Invasive Vascular Patient: SHERRY Bazan [facility] Rec#: [id number] (Age): 1940(78y) Study Date: 09/05/2018 Room#: G93 Type: Inpatient Sex: M Reading: Pierce Moreau DO, RPVI Referring: LEVY Stock Cutter: Rima Celestin RDCS, RVT Stock Cutter: Deena Pelayo RDCS RVT Procedure Info: [id number] Study Quality: Lower Arterial Duplex: adequate Diagnosis: [...] PSV Name Value Units EIA 83.2 cm/sec INDUST[employer]AL YARD BRAKE COUPLER 95.6 cm/sec Profunda 85.5 cm/sec SFA - prox -25 cm/sec SFA - mid -67.2 cm/sec SFA - dist 58.2 cm/sec Popliteal - dist 0 cm/sec CSM CONSULTANT 6.8 cm/sec Pre Stenosis #1 9.3 cm/sec Within Stenosis #1 67.2 cm/sec Distal Stenois #1 58.2 cm/sec Left Stent #1 Name Value Units Pre 58.2 cm/sec Orig/Prox 0 cm/sec Mid 0 cm/sec Dist 0 cm/sec Distal To 6.8 cm/sec Electronically signed at 09/05/2018 11:55:51 by: Pierce Moreau DO, RPVIOhioHealthAPTTon 45-08-4917hYEU Coag time (Bld)59 sHighOhioHealthaPTT Coag time (Bld)Therapeutic range for APTT's is 68 - 104 secondsOhioHealth Interpretation and review of laboratory resultsAbnormKadlec Regional Medical CenteroHealthCBCon 43-12-1450Yckrevwuhhh distribution width Entitic volume (RBC)12.8 %11.6 - 14.8 % [facility] HospitalHematocrit Volume Fraction (Bld)33.3 %Low41 - 53 %[facility] HospitalHemoglobin mass conc (Bld)11.2 g/dLLow13.5 - 17.5 g/dLOhioHealthInterpretation and review of laboratory resultsAbnormOhioHealth [facility] Entitic mass (RBC)30.2 pg26 - 34 pg [facility] HospitalMCHC mass conc (RBC)33.6 g/dL31 - 37 g/dLOhioHealthComment on above: Cold Agglutinin presentMCV Entitic volume (RBC)89.8 fL80 - 100 fLOhioHealth Nucleated RBC #/vol (Bld)0.00 10*3/uLOhioHealthNucleated RBC/100 WBC Ratio (Bld) 0.0 %OhioHealthPlatelet mean volume Entitic volume (Bld)10.1 fL9 - 15.5 fL OhioHealthPlatelets #/vol (Bld)222 10*3/uLOhioHealthComment on above:Peripheral smear reviewed manuallyRBC #/vol (Bld)3.71 10*6/uLLowOhioHealthWBC #/vol (Bld) 6.36 10*3/uLOhioHealthWhile on heparinOhioHealthOtheron 82-68-4823Jderl TubeHold for add-ons.[facility] City HospitalComment on above:Auto resulted.XR COMPARISON IMPORTon 44-96-8422Oaal order has been auto-finalized and does not contain a result. [facility] Vital Signs Date TimeVital SignValuePerforming JarzxfhtgSvfqbfrx56-28-6147 10:17-0400Body ayfefr627 cmRevon Lovelace MD Work Phone: [phone] Memorial HospitalYuryzikifp51-31-4813 10:17-0400Body mass index (BMI) [Ratio]31.2 kg/o9IsgxxFlash Lovelace MD Work Phone: [phone] Memorial HospitalHgivqbkvrx73-02-8064 10:17-0400Body fljqty479.22 kgFlash Lovelace MD Work Phone: [phone] Memorial HospitalXpcpzrhokw91-00-5093 10:17-0400Diastolic blood vgxnuinb39 mm[Hg]Flash Lovelace MD Work Phone: [phone])465PPDaiWright Memorial HospitalPohtriziok56-92-6825 10:17-0400Heart rate84 /min Flash Lovelace MD Work Phone: [phone] Memorial HospitalUmxmnuvats44-42-1709 10:179738CpN4% (BldA) [Mass fraction]94 %Flash Lovelace MD Work Phone: [phone] Memorial HospitalFhqruhoobr41-75-3001 10:17-0400Systolic blood lxzkgvax198 mm[Hg]Flash Lovelace MD Work Phone: [phone])380PPDaiWright Memorial HospitalEbwhpwwtoy29-97-0072 13:03-0400Body ozoejh473 cm Flash Lovelace MD Work Phone: [phone] [place], [place] [address]Fpnalbpqkz66-95-1097 13:03-0400Body mass index (BMI) [Ratio]31.2 kg/h7JmibvFlash Lovelace MD Work Phone: 1(995)[facility] [place], [place] [address]Wwdrnzmsag97-64-1264 13:03-0400Body uesglp728.22 kgFlash Lovelace MD Work Phone: [phone])[address] [place], [place] 5852309-23-2025 13:03-0400Diastolic blood eknyiyyt11 mm[Hg]Flash Lovelace MD Work Phone: [phone])[address] [place], [place] 5852309-23-2025 13:03-0400Heart rate76 /min Flash Lovelace MD Work Phone: [phone])[address] [place], [place] 5852309-23-2025 13:03-2034TuP6% (BldA) [Mass fraction]94 %Flash Lovelace MD Work Phone: [phone])[address] [place], [place] 5852309-23-2025 13:03-0400Systolic blood vpclgjyn141 mm[Hg]Flash Lovelace MD Work Phone: [phone])[address] [place], [place] 5852309-16-2025 07:29-0400Body temperature 97.5 [degF]Rafaela Garcia MD Work Phone: [phone])[address] [place], [place] 1316509-16-2025 07:29-0400 Diastolic blood mm[Hg]Rafaela Garcia MD Work Phone: 1(539)[address] [place], [place] 1316509-16-2025 07:29-0400Heart rate72 /minRafaela Garcia MD Work Phone: [phone])[address] [place], [place] 1316509-16-2025 07:29-0400 Respiratory rate18 /Kaitlynn Garcia MD Work Phone: [phone])[address] [place], [place] 1316509-16-2025 07:29-6561LvQ0% (BldA) [Mass fraction]96 %Rafaela Garcia MD Work Phone: [phone])[address] [place], [place] 1316509-16-2025 07:29-0400Systolic blood hzmoxkjo914 mm[Hg]Rafaela Garcia MD Work Phone: [facility]09-12-2025 14:00-0400Body lnfedy178 cmRafaela Garcia MD Work Phone: [phone])[address] [place], [place] 1316509-12-2025 14:00-0400Body mass index (BMI) [Ratio]30.81 kg/s8ImxcmRafaela Garcia MD Work Phone: 1(676)[address] [place], [place] 1316509-12-2025 14:00-0400Body zeooqy096.86 kgRafaela Garcia MD Work Phone: 1(488)[address] [place], [place] 1316509-11-2025 20:42-0400Heart rate84 /minFlash Lovelace MD Work Phone: 1(201)[address] [place], [place] 2303509-11-2025 20:42-0400 Respiratory rate20 /minFlash Lovelace MD Work Phone: [phone])[address] [place], [place] 2303509-11-2025 20:00-0400 Body gqanjjzhhyx29 [degF]Flash Lovelace MD Work Phone: 1(684)[address] [place], [place] 2303509-11-2025 20:00-0400 Diastolic blood fnbhvaqy05 mm[Hg]Flash Lovelace MD Work Phone: 1(565)[address] [place], [place] 2303509-11-2025 20:00-0400 SaO2% (BldA) [Mass fraction]94 %Flash Lovelace MD Work Phone: 1(068)[address] [place], [place] 2303509-11-2025 20:00-0400 Systolic blood nrkseqfj731 mm[Hg]Flash Lovelace MD Work Phone: 1(312)[address] [place], [place] 2303509-10-2025 20:00-0400 Inhaled oxygen flow rate2 L/minFlash Lovelace MD Work Phone: 1(847)[address] [place], [place] 2303509-10-2025 06:00-0400 Body kgFlash Lovelace MD Work Phone: 1(894)[address] [place], [place] 2303509-09-2025 14:10-0400 Body kbedbw282.96 Varun Lovelace MD Work Phone: [phone] [place], [place] 4585409-09-2025 05:35-0400 Inhaled oxygen mnrxzdsjoyebu57 %Flash Lovelace MD Work Phone: [phone])[address] [place], [place] 2303509-05-2025 16:00-0400 Diastolic blood ohgxandd48 mm[Hg]Flash Lovelace MD Work Phone: 1(314)[address] [place], [place] 2303509-05-2025 16:00-0400 Heart rate75 /minFlash Lovelace MD Work Phone: [phone])[address]09-05-2025 16:00-0400 Respiratory rate22 /minFlash Lovelace MD Work Phone: 1(773)[address] [place], [place] 2303509-05-2025 16:00-0400 Systolic blood fuuxpbkr781 mm[Hg]Flash Lovelace MD Work Phone: 1(972)[address] [place], [place] 2303509-05-2025 15:00-0400 SaO2% (BldA) [Mass fraction]95 %Flash Lovelace MD Work Phone: [phone])[address]09-05-2025 14:23-0400 Body ydbvdt252.96 Varun Lovelace MD Work Phone: 1(826)[address] [place], [place] 2303509-05-2025 14:23-0400 Body mpwvbebwxiv87.6 [degF]Flash Lovelace MD Work Phone: [phone]09-05-2025 14:23-0400 Body xbrcyo125.13 kgFlash Lovelace MD Work Phone: [phone])[address]09-05-2025 13:04-0400 Body taiopl742 cmZoë BROWER Work Phone: [phone])525-[facility] HospitalYhmpditpqm09-08-0397 13:04-0400Body mass index (BMI) [Ratio]31.74 kg/t4CrxhfZoë BROWER Work Phone: [facility] HospitalNxhglibyzh68-37-0269 13:04-0400Body temperature 98.6 [degF]Zoë BROWER Work Phone: [facility] HospitalTlppzmbekg14-48-7206 13:04-0400Body uxukbp778.13 kgZoë Hemmer PA Work Phone: [facility] HospitalCcqzgoxvey62-79-5780 13:04-0400Diastolic blood wayltuuu13 mm[Hg]Zoë Hemmer PA Work Phone: [facility] HospitalWuomruzjve64-25-1897 13:04-0400Heart rate81 /min Zoë Hemmer PA Work Phone: [facility] HospitalVaeawzdsis59-27-0783 13:04-0400Respiratory rate20 /minZoë Hemmer PA Work Phone: [facility] HospitalNlioyvpqyh37-50-6255 13:04-7835IbL6% (BldA) [Mass fraction]93 %Zoë Hemmer PA Work Phone: [facility] HospitalLtblbpzrvy30-33-2818 13:04-0400Systolic blood vsxcimsn047 mm[Hg]Zoë Hemmer PA Work Phone: [facility] HospitalRjswccujig78-99-3245 14:36-0400Diastolic blood sxkgywmo75 mm[Hg]Mohsen Sarabia MD Work Phone: 1(739) [phone]gatbg86-01-5131 14:36-0400Heart rate64 /minMohsen Sarabia MD Work Phone: 1(680) [phone]19EnffHqdlss92-12-5405 14:36-0400Systolic blood pressure 162 mm[Hg]Mohsen Sarabia MD Work Phone: 1(990) [phone]DenlYawcwa02-17-4260 14:30-0400Body kjdgsa320 cmMohsen Sarabia MD Work Phone: 1(143) [phone]UenpQkhxuu69-84-3763 14:30-0400Body mass index (BMI) [Ratio]31.46 kg/m2Mohsen Sarabia MD Work Phone: 1(378) [phone]AookJgsnma26-06-5302 14:30-0400Body zfbemt414.13 kgMohsen Sarabia MD Work Phone: 1(750) [phone]kbdbz41-05-8708 14:30-0400Respiratory rate16 /min Mohsen Sarabia MD Work Phone: 1(473) [phone]ptgnk09-40-9617 14:30-4283QpH9% (BldA) [Mass fraction]97 %Mohsen Sarabia MD Work Phone: 1(788) [phone]ybkkp52-49-8503 13:27-0400Body uuhwlx311 cmRevon Lovelace MD Work Phone: [facility] HospitalImespmazxk56-96-4941 13:27-0400Body mass index (BMI) [Ratio]30.94 kg/x0YkmvgFlash Lovelace MD Work Phone: [place] [address]Kthidvwowg20-38-9040 13:27-0400Body .32 kgFlash Lovelace MD Work Phone: [facility] HospitalCtkncvburt46-52-5598 13:27-0400Diastolic blood urcwqfli42 mm[Hg]Flash Lovelace MD Work Phone: [facility] HospitalRvdsimcqid34-34-1586 13:27-0400Heart rate70 /min Flash Lovelace MD Work Phone: [facility] HospitalRudpybuolt24-73-0528 13:27-2589OnY8% (BldA) [Mass fraction]96 %Flash Lovelace MD Work Phone: [facility] HospitalGabcfeyxtr37-24-4318 13:27-0400Systolic blood mm[Hg]Flash Lovelace MD Work Phone: [facility] HospitalTahnzcwylu99-53-3879 11:29-0400Body rtcmys833 cm Zoë King PA Work Phone: NOEllett [facility] HospitalRcvlrqupbv09-36-8248 11:29-0400Body mass index (BMI) [Ratio]31.35 kg/n4WbhwaZoë King PA Work Phone: NOEllett [facility] HospitalJfwhwyynye96-81-1267 11:29-0400Body .77 kgZoë King PA Work Phone: [place] [address]Xaldtlkxsn65-55-7704 11:29-0400Diastolic blood mm[Hg]Zoë King PA Work Phone: [facility] HospitalWwaoknoevy48-25-8485 11:29-0400Heart rate70 /min Zoë Hemmer PA Work Phone: [facility] HospitalTvbrjmfsdi04-86-8589 11:29-0400Respiratory rate18 /minZoë Hemmer PA Work Phone: [facility] HospitalBxppxddbrb09-36-2446 11:29-8435RqA7% (BldA) [Mass fraction]98 %Zoë Hemmer PA Work Phone: [facility] HospitalEkzizabhuj66-64-0768 11:29-0400Systolic blood mm[Hg]Zoë Hemmer PA Work Phone: [facility] HospitalHigrhahcfn51-77-9410 11:54-0400Body dyvsja301 cm Mohsen Sarabia MD Work Phone: 1(254) [phone]hgrrw17-71-0633 11:54-0400Body mass index (BMI) [Ratio]31.07 kg/m2Mohsen Sarabia MD Work Phone: 1(183) [phone]fqzvz00-31-2679 11:54-0400Body gmjdno732.77 kgMohsen Sarabia MD Work Phone: 1(723) [phone]ucsdv08-35-1153 11:54-0400Diastolic blood qzusrrgw58 mm[Hg]Mohsen Sarabia MD Work Phone: 1(320) [phone]qiyat71-07-3432 11:54-0400Heart rate68 /minMohsen Sarabia MD Work Phone: 1(931) [phone]pbiqf24-94-5332 11:54-0400Respiratory rate12 /min Mohsen Sarabia MD Work Phone: 1(717) [phone]fnmhc93-85-5840 11:54-2449KtO9% (BldA) [Mass fraction]92 %Mohsen Sarabia MD Work Phone: 1(958) [phone]qhoan17-65-8345 11:54-0400Systolic blood pressure 121 mm[Hg]Mohsen Sarabia MD Work Phone: 1(627) [phone]gqMdjqgl98-61-5663 13:24-0400Body jtafft918 cmRevon Lovelace MD Work Phone: 1(649)005-[address] [place], [place] [address]Ucqtfrurqd70-54-4836 13:24-0400Body mass index (BMI) [Ratio]31.2 kg/n8IfmaaFlash Lovelace MD Work Phone: 1(092)753-[address] [place], [place] [address]Crsivuiiyj34-06-1096 13:24-0400Body ognbzj351.22 kgFlash Lovelace MD Work Phone: 1(073)[facility]-[address] [place], [place] [address]Ramprtyetz15-36-4070 13:24-0400Diastolic blood ujiersug38 mm[Hg]Flash Lovelace MD Work Phone: 1(861)368-[address] [place], [place] [address]Svltjsnbht17-32-9121 13:24-0400Heart rate72 /min Flash Lovelace MD Work Phone: 1(193)[facility]-[address] [place], [place] [address]Hyovslpzem35-32-3239 13:24-2767PdO9% (BldA) [Mass fraction]96 %Flash Lovelace MD Work Phone: 1(175)634-[address] [place], [place] [address]Rubrfyakew56-72-7720 13:24-0400Systolic blood ubgtqunx223 mm[Hg]Flash Lovelace MD Work Phone: 1(177)157-[address] [place], [place] [address]Isuvjrbatd49-72-5778 14:58-0400Body temperature 98.1 [degF]Uri Edgar DO Work Phone: 1(838) [phone]dhpDfnnpl06-94-3060 14:58-0400Diastolic blood dyrfkkrz25 mm[Hg]Uri Edgar DO Work Phone: 1(304) [phone]-489051EqwsHlolwv31-84-2180 14:58-0400Heart rate88 /minKyle Edgar DO Work Phone: 1(127) [phone]OnkgTvzbev10-45-9733 14:58-0400Respiratory rate15 /min Uri Edgar DO Work Phone: 1(110) [phone]wxzFmcqvx01-47-3311 14:58-4618YmZ7% (BldA) [Mass fraction]96 %Uri Edgar DO Work Phone: 1(260) [phone]0-255481IzjnLifytx50-37-3403 14:58-0400Systolic blood pressure 139 mm[Hg]Uri Edgar DO Work Phone: 1(241) [phone]7-037928BbdyYxcmzx78-49-7756 20:34-0400Body eplytq536 cmUri Voss DO Work Phone: 1(902) [phone]1-655658KfwvDboplu99-36-7799 20:34-0400Body mass index (BMI) [Ratio]31.19 kg/m2Uri Voss DO Work Phone: 1(524) [phone]-414199LpknQredwi56-97-0280 20:34-0400Body lrcotm252.2 kgUri Voss DO Work Phone: 1(662) [phone]-947155HqjcMmyiig61-27-2503 09:55-0400Diastolic blood oeduklsr30 mm[Hg]Ken Johnson CNP Work Phone: 1(615) [phone]-472966BehbKevccy85-48-9915 09:55-0400Systolic blood pressure 147 mm[Hg]Ken Johnson CNP Work Phone: 1(368) [phone]-452231XclqMvdqht17-48-4089 09:52-0400Body qtmyex138.4 cm Ken Johnson CNP Work Phone: 1(309) [phone]-542007JcsoQfappi13-44-8914 09:52-0400Body mass index (BMI) [Ratio]32.98 kg/l6Bkeogqcristel Johnson CNP Work Phone: 1(610) [phone]FuptNkheli64-76-9520 09:52-0400Body hamfpu241.4 kg Ken Johnson CNP Work Phone: 1(731) [phone]jeuJbtgth51-00-7562 09:52-0400Heart rate81 /minElaine Solomon BENITES Work Phone: 1(178) [phone]NfwrDuyfck05-04-9503 09:52-4612RiT0% (BldA) [Mass fraction]93 %Ken Johnson CNP Work Phone: 1(911) [phone]hoiVudnbp49-62-6196 18:50-0400Diastolic blood xeduvnfr80 mm[Hg]Flash Lovelace MD Work Phone: [facility]07-16-2025 18:50-0400 Heart rate83 /minFlash Lovelace MD Work Phone: 1(560)[address]07-16-2025 18:50-0400 Respiratory rate16 /minFlash Lovelace MD Work Phone: 1(150)[address] [place], [place] 2303507-16-2025 18:50-0400 SaO2% (BldA) [Mass fraction]95 %Flash Lovelace MD Work Phone: 1(037)[address] [place], [place] 2303507-16-2025 18:50-0400 Systolic blood wtuykgpv265 mm[Hg]Flash Lovelace MD Work Phone: 1(048)[address] [place], [place] 2303507-16-2025 17:05-0400 Inhaled oxygen flow rate6 L/minFlash Lovelace MD Work Phone: 1(017)[address] [place], [place] 2303507-16-2025 13:05-0400 Body .96 Varun Lovelace MD Work Phone: 1(035)[address] [place], [place] 2303507-16-2025 13:05-0400 Body lyssnqhxoxf74.1 [degF]Flash Lovelace MD Work Phone: 1(145)[address] [place], [place] 2303507-16-2025 13:05-0400 Body bapxnb694.39 kgFlsah Lovelace MD Work Phone: 1(110)[address] [place], [place] 2303507-15-2025 11:34-0400 Body qrngbe952.96 Varun Lovelace MD Work Phone: 1(521)[address] [place], [place] 2303507-15-2025 11:34-0400 Body mass index (BMI) [Ratio]32.1 kg/j6EbgxqFlash Lovelace MD Work Phone: 1(779)[address] [place], [place] 2303507-15-2025 11:34-0400 Body gmqvwyvdicg39 [degF]Flash Lovelace MD Work Phone: 1(570)[address] [place], [place] 2303507-15-2025 11:34-0400 Body qbakee296.39 kgFlash Lovelace MD Work Phone: 1(076)[address] [place], [place] 2303507-15-2025 11:34-0400 Diastolic blood mcgyvppw21 mm[Hg]Flash Lovelace MD Work Phone: [facility]07-15-2025 11:34-0400 Heart rate77 /minFlash Lovelace MD Work Phone: 1(934)891-[address] [place], [place] 9824907-15-2025 11:34-0400 SaO2% (BldA) [Mass fraction]98 %Flash Lovelace MD Work Phone: 1(417)595-[address] [place], [place] 9824907-15-2025 11:34-0400 Systolic blood ghxbzgar111 mm[Hg]Flash Lovelace MD Work Phone: 1(562)155-[address] [place], [place] 4585405-15-2025 10:33-0400 Body yxrdce906 cmLonniejim Steve MINIATURE MODEL MAKER Work Phone: [facility] HospitalQaxngjpnbd03-57-0617 10:33-0400Body mass index (BMI) [Ratio]32.23 kg/m2Bhaskar Wilson MINIATURE MODEL MAKER Work Phone: 1(632)944-[address] [place], [place] [address]Ppquurbomb38-48-4947 10:33-0400Body aeodmy714.85 kgLonniejim Steve MINIATURE MODEL MAKER Work Phone: [facility] HospitalNggyxmauso53-79-7792 10:33-0400Diastolic blood xevaduhh14 mm[Hg]Bhaskar Wilson MINIATURE MODEL MAKER Work Phone: [facility] HospitalFwdmshjohu00-51-5083 10:33-0400Heart rate83 /min Bhaskar Wilson MINIATURE MODEL MAKER Work Phone: [facility] HospitalYswsnwrcai96-29-0969 10:33-0400Respiratory rate17 /minBhaskar Wilson MINIATURE MODEL MAKER Work Phone: [facility] HospitalHbwihivpcp64-20-0300 10:33-8905JdL7% (BldA) [Mass fraction]96 %Bhaskar Wilson MINIATURE MODEL MAKER Work Phone: [facility] HospitalNjwyixceen90-41-0274 10:33-0400Systolic blood adfkrraq414 mm[Hg]Bhaskar Wilson MINIATURE MODEL MAKER Work Phone: [facility] HospitalUrqqsfupfb43-55-3614 13:21-0500Body vingbb578 cm Flash Lovelace MD Work Phone: [facility] HospitalAslboaysxy66-18-3302 13:21-0500Body mass index (BMI) [Ratio]33 kg/j6TkurcFlash Lovelace MD Work Phone: [facility] HospitalGogjkwagsa97-62-0116 13:21-0500Body zfztre875.57 kgFlash Lovelace MD Work Phone: [facility] HospitalTpbbgpwvjh79-35-9509 13:21-0500Diastolic blood penbniip13 mm[Hg]Flash Lovelace MD Work Phone: [facility] HospitalChjiszwyhi83-26-0143 13:21-0500Heart rate73 /min Flash Lovelace MD Work Phone: 1(810)[facility]-3211[facility] HospitalFzsixkucce59-44-6841 13:21-2372OjH4% (BldA) [Mass fraction]96 %Flash Lovelace MD Work Phone: [facility] HospitalKumlixmlgo99-71-6874 13:21-0500Systolic blood xbtlvkof652 mm[Hg]Flash Lovelace MD Work Phone: 1(537)743-[address] [place], [place] [address]Wwdsknapqy00-98-4138 13:07-0400Body emhtea502 cm Zoë King PA Work Phone: 1(259)[facility]-7629[facility] HospitalKbojkzexry28-94-9424 13:07-0400Body mass index (BMI) [Ratio]31.38 kg/l4Cfwfs Hemmer PA Work Phone: [facility] HospitalYkgkuppmzi51-50-8210 13:07-0400Body ajkjau527.86 kgZoë Hemmer PA Work Phone: [facility] HospitalJushrnedkl33-83-8884 13:07-0400Diastolic blood avwahsro41 mm[Hg]Zoë Hemmer PA Work Phone: [place] [address]Wsdchlyzpl84-61-8393 13:07-0400Heart rate80 /min Zoë Hemmer PA Work Phone: [facility] HospitalYguslvcobq24-25-1015 13:07-0400Respiratory rate16 /minZoë Hemmer PA Work Phone: [facility] HospitalNdxzppxdxd56-59-8935 13:07-4212QnI8% (BldA) [Mass fraction]98 %Zoë Hemmer PA Work Phone: [facility] HospitalRtzeqqzzak67-68-8096 13:07-0400Systolic blood xkcjhnox655 mm[Hg]Zoë Hemmer PA Work Phone: 1(011)[facility]1475[facility] HospitalZxsbzaryhg92-81-7225 09:25-0400Body qjvqas968 cm Zoë Hemmer PA Work Phone: 1(512)[facility]-[address] [place], [place] [address]Blczjjvntf07-53-1812 09:25-0400Body mass index (BMI) [Ratio]31.23 kg/j0Faepo Hemmer PA Work Phone: 1(261)[facility]-[address] [place], [place] [address]Akarcqtkjt63-24-6731 09:25-0400Body taxjhq162.31 kgToneen Hemmer PA Work Phone: 1(397)[facility] [place], [place] [address]Mevrdcccws18-16-0332 09:25-0400Diastolic blood aquptnkm56 mm[Hg]Zoë Hemmer PA Work Phone: 1(093)[facility] [place], [place] [address]Uapddapxys87-21-2584 09:25-0400Heart rate70 /min Zoë Hemmer PA Work Phone: 1(996)[facility]-[address] [place], [place] [address]Akjbjdzdrk25-20-5174 09:25-0400Respiratory rate16 /minToneen Hemmer PA Work Phone: 1(470)[facility]-[address] [place], [place] [address]Wgzenvymkj25-99-7358 09:25-2723WyQ9% (BldA) [Mass fraction]96 %Zoë Hemmer PA Work Phone: 1(377)[facility]-[address] [place], [place] [address]Hlqineqskf57-09-6775 09:25-0400Systolic blood tgrvyemu755 mm[Hg]Zoë Hemmer PA Work Phone: 1(867)[facility]-[address] [place], [place] [address]Mrithwgumx48-53-1450 13:07-0400Blood Pressure LocationJENNIFER JAY [facility]04-30-2024 13:07-0400Diastolic blood yeelakpv48 mm[Hg]BRENNA JAY [facility] [place] [address]-30-2024 13:07-0400Heart rate68 /minJENNIFER JAY [facility]04-30-2024 13:07-0400Respiratory rate16 /minBRENNA JAY [facility]04-30-2024 13:07-0400Systolic blood mm[Hg]BRENNA MOSQUERA [facility]02-15-2024 15:13-0500Diastolic blood ihuogacs93 mm[Hg]MD Flash Lovelace Work Phone: 1(106)935-[address] [place], [place] 4585402-15-2024 15:13-0500 Heart rate67 /minMD Flash Lovelace Work Phone: 1(753)077-[address] [place], [place] 4585402-15-2024 15:13-0500 Respiratory rate16 /min Flash Lovelace Work Phone: 1(297)705-[address] [place], [place] 4585402-15-2024 15:13-0500 SaO2% (BldA) [Mass fraction]96 %MD Flash Lovelace Work Phone: 1(172)189-[address] [place], [place] 4585402-15-2024 15:13-0500 Systolic blood drrcfcyf636 mm[Hg]MD Flash Lovelace Work Phone: 1(135)617-[address] [place], [place] 4585402-15-2024 08:43-0500 Body .96 cmMD Flash Lovelace Work Phone: 1(007)502-[address] [place], [place] 4585402-15-2024 08:43-0500 Body kdybyk551 kgMD Flash Lovelace Work Phone: 1(968)882-[address] [place], [place] 4585402-06-2024 10:00-0500 Body qibowb767.96 cmCristian Beaver Other [employer] Other 02-06-2024 10:00-0500Body mass index (BMI) [Ratio] 30.55 kg/b7RvimncsCristian Beaver Other [employer] Other 02-06-2024 10:00-0500Body ngczpttuaoi26.4 [degF] Cristian Saranya Other [facility] Other 02-06-2024 10:00-0500Body csydic635.96 kgJecamilla Beaver Other [employer] Other 02-06-2024 10:00-0500Diastolic blood ytbriqrl14 mm[Hg] Cristian Beaver Other [employer] Other 02-06-2024 10:00-4511VcI3% (BldA) [Mass fraction]94 % Cristian Beaver Other [employer] Other 02-06-2024 10:00-0500Systolic blood vurizuce563 mm[Hg] Cristian Beaver Other [facility] Other 12-14-2023 10:52-0500Body htmbos234 cmChad Melida LEVEL DESIGNER-TECHNOLOGY SERVICES MANAGER Work Phone: [employer]12-14-2023 10:52-0500Body mass index (BMI) [Ratio]29.53 kg/m2Scar Ortega LEVEL DESIGNER-TECHNOLOGY SERVICES MANAGER Work Phone: [employer]12-14-2023 10:52-0500Body weight 104.33 kgScar Ortega LEVEL DESIGNER-TECHNOLOGY SERVICES MANAGER Work Phone: [employer]12-13-2023 12:29-0500Diastolic blood uitvrojk76 mm[Hg]Mohsen Sarabia MD Work Phone: 1(795) [phone]pokNzyfon19-63-7545 12:29-0500Systolic blood pressure 135 mm[Hg]Mohsen Sarabia MD Work Phone: 1(929) [phone]csgQeuuin07-22-4421 12:27-0500Body dedtbe609.4 cmMohsen Sarabia MD Work Phone: 1(660) [phone]-723225RfqgMakxgh34-75-3284 12:27-0500Body mass index (BMI) [Ratio]30.34 kg/m2Mohsen Sarabia MD Work Phone: 1(578) [phone]xjrEawxar18-58-0234 12:27-0500Body alqenn048.33 kgMohsen Sarabia MD Work Phone: 1(416) [phone]0-812515ImzoIaiigm95-78-2915 12:27-0500Heart rate68 /minMohsen Sarabia MD Work Phone: 1(302) [phone]-293577PcugHcqqjq26-94-1162 12:27-0500Respiratory rate12 /min Mohsen Sarabia MD Work Phone: 1(289) [phone]iwdKzggmc35-23-9234 12:27-2500IkX5% (BldA) [Mass fraction]93 %Mohsen Sarabia MD Work Phone: 1(932) [phone]ttGqkjlu78-08-8931 09:30-0400Body elofvp809.96 cm Cristian Beaver Other [employer] Other 2-352683-84754022-63-7851 09:30-0400Body mass index (BMI) [Ratio] 30.55 kg/z6HhobsslCristian Beaver Other [employer] Other 10-16-2023 09:30-0400Body lzjhfxqlmwu47.6 [degF] Cristian Beaver Other [employer] Other 10-16-2023 09:30-0400Body .96 kgCristian Beaver Other [employer] Other 10-16-2023 09:30-0400Diastolic blood lvjgaxvj34 mm[Hg] Cristian Buehrer Other [employer] Other 10-16-2023 09:30-8806OdN6% (BldA) [Mass fraction]97 % Cristian Buehrer Other [employer] Other 10-16-2023 09:30-0400Systolic blood rfebdvdx506 mm[Hg] Cristian Buehrer Other [employer] Other 09-26-2023 10:45-0400Body .96 cmJecamilla Melendezrer Other [employer] Other 09-26-2023 10:45-0400Body mass index (BMI) [Ratio] 30.55 kg/o6Knykliy Buehrer Other [employer] Other 09-26-2023 10:45-0400Body rcxoonekuzu68.8 [degF] Cristian Buehrer Other [employer] Other 09-26-2023 10:45-0400Body pwoarv602.96 kgJecamilla Jonesehrer Other [employer] Other 09-26-2023 10:45-0400Diastolic blood mm[Hg] Cristian Buehrer Other [employer] Other 09-26-2023 10:45-6342OmC0% (BldA) [Mass fraction]98 % Cristian Buehrer Other [employer] Other 09-26-2023 10:45-0400Systolic blood mm[Hg] Cristian Beaver Other [employer] Other 03-20-2023 10:45-0400Body imtxdk819.96 cmHaven Malcolm Other [facility] Other 03-20-2023 10:45-0400Body mass index (BMI) [Ratio] 31.45 kg/z1LsgoifHaven Malcolm Other [facility] Other 03-20-2023 10:45-0400Body jdrvprqcbem37.3 [degF]Haven Youngsarabjit Other [employer] Other 03-20-2023 10:45-0400Body .13 kgHaven Malcolm Other [facility] Other 03-20-2023 10:45-0400Diastolic blood fpotfmhm45 mm[Hg] Haven Gold Other [facility] Other 03-20-2023 10:45-8707TaS3% (BldA) [Mass fraction]94 % Haven Gold Other [employer] Other 03-20-2023 10:45-0400Systolic blood mm[Hg] Haven Malcolm Other [employer] Other 03-14-2023 08:09-0400Body yghpihrdemg16.5 [degF] Ronnie Montoya MD Work Phone: 1(280) [phone]mpcTbhotn30-21-0650 08:09-0400Diastolic blood xybknojm83 mm[Hg]Ronnie Montoya MD Work Phone: 1(928)[phone]eoqLtlfhe28-56-9013 08:09-0400Heart rate81 /min Ronnie Montoya MD Work Phone: 1(651)543-526-7434AyrpMtlrjs16-281671UwgmTramvw09-26-6875 08:09-0400Respiratory rate16 /min Ronnie Montoya MD Work Phone: 1(954)895-856-7545GfrlKekzmd44-667300YrjkKxnqdm13-09-1568 08:09-8467IlE1% (BldA) [Mass fraction]95 %Ronnie Montoya MD Work Phone: 1(419)608-213-0602GgdqJmztbs25-294550JedmAubtrs93-86-8310 08:09-0400Systolic blood pressure 122 mm[Hg]Ronnie Montoya MD Work Phone: HyttEsfley11-702901YvhgZexqfb51-33-9847 13:29-0500Body xrkief388.4 cm Ronnie Montoya MD Work Phone: AfpqRcigrg11-469680QbfeLkmvqn62-32-1936 13:29-0500Body mass index (BMI) [Ratio]32.98 kg/g5GyilsgnRonnie Montoya MD Work Phone: 1(539)[phone]wazPpgvnj84-32-6156 13:29-0500Body apofwg503.4 kg Ronnie Montoya MD Work Phone: 1(502)24134-3678UchdEwxqbu59-563344LfxcQeskdw76-07-1070 21:30-0500Diastolic blood wwxkfmke15 mm[Hg]Dalila Arreguin MD Work Phone: w448-5954YWBYCCK41-792492GYQBMVJ60-59-1279 21:30-0500Heart rate92 /minDalila Arreguin MD Work Phone: 1(348) [phone]4459KDQVTXT47-94-2835 21:30-0500Respiratory rate22 /min Dalila Arreguin MD Work Phone: w498-1860JBGYQWG99-251828MONRIZQ95-38-2089 21:30-7207MbW1% (BldA) [Mass fraction]90 %Dalila Arreguin MD Work Phone: w925-6228GLKKWTI65-041923JCSHSLS72-97-6901 21:30-0500Systolic blood febwcobc695 mm[Hg]Dalila Arreguin MD Work Phone: 1(603) [phone]7828OYCFFSZ31-89-1573 20:00-0500Diastolic blood mm[Hg]Dalila Arreguin MD Work Phone: 1(594) [phone]BZVN13-47-1558 20:00-0500Heart rate90 /minDalila Arreguin MD Work Phone: 1(971) [phone]9821ANRSGUG78-80-2783 20:00-0500Respiratory rate7 /min Dalila Arreguin MD Work Phone: 1(941) [phone]0300XGQLINQ54-39-6055 20:00-2369TwF3% (BldA) [Mass fraction]89 %Dalila Arreguin MD Work Phone: 1(135) [phone]7189UMTOAGR37-74-6278 20:00-0500Systolic blood gykblzrd929 mm[Hg]Dalila Arreguin MD Work Phone: 1(593) [phone]1966RYRMPDT62-02-4512 19:34-0500Body ipcbsg259 Willie Arreguin MD Work Phone: 1(301) [phone]NDF28-20-2954 19:34-0500Body mass index (BMI) [Ratio]32.1 kg/q8ZitmoDalila Arreguin MD Work Phone: 1(158) [phone]0048PRKJKUM97-14-6716 19:34-0500Body gaqgde563.4 kgDalila Arreguin MD Work Phone: 1(165) [phone]VI53-71-0933 19:06-0500Body vuidpdbrbub11.4 [degF]Dalila Arreguin MD Work Phone: 1(677) [phone]SIJM88-37-4670 10:48-0500Body tjalul525 cmCtyesha Ortega APRN-TECHNOLOGY SERVICES MANAGER Work Phone: [employer]11-17-2022 10:48-0500Body mass index (BMI) [Ratio]32.35 kg/m2Scar Ortega APRN-TECHNOLOGY SERVICES MANAGER Work Phone: [employer]51-58-5220 10:48-0500Body wahrzlnymvz77.3 [degF]Scar Ortega APRN-TECHNOLOGY SERVICES MANAGER Work Phone: [employer]16-67-0170 10:48-0500Body weight 114.31 kgScar MATOS Work Phone: [employer]09-06-2022 13:00-0400Body height 187.96 cmCristian Beaver Other [employer] Other 09-06-2022 13:00-0400Body mass index (BMI) [Ratio] 32.09 kg/d6LdfldvcCristian Beaver Other [employer] Other 09-06-2022 13:00-0400Body ksimmeenorf62.2 [degF] Cristian Beaver Other [employer] Other 09-06-2022 13:00-0400Body jaumot750.4 kgAlphonsecamilla Beaver Other [employer] Other 09-06-2022 13:00-0400Diastolic blood uffhfayn24 mm[Hg] Cristian Beaver Other [employer] Other 09-06-2022 13:00-1559YvO1% (BldA) [Mass fraction]96 % Cristian Beaver Other [employer] Other 09-06-2022 13:00-0400Systolic blood embqwpwe675 mm[Hg] Cristian Beaver Other [employer] Other 08-29-2022 16:45-0400Diastolic blood tnanprme46 mm[Hg] MD Flash Lovelace Work Phone: [facility]08-29-2022 16:45-0400 Heart rate67 /minMD Flash Moraa Work Phone: [facility]08-29-2022 16:45-0400 Respiratory rate16 /minMD Flash Lovelace Work Phone: [facility]08-29-2022 16:45-0400 SaO2% (BldA) [Mass fraction]97 % Jorgedana [place] Work Phone: 1(437)595-[address] [place], [place] 9824908-29-2022 16:45-0400 Systolic blood kkqyyzpf533 mm[Hg]MD Vidales [place] Work Phone: 1(338)034-[address] [place], [place] 9824908-29-2022 11:24-0400 Body .96 cmMD Flash Lovelace Work Phone: 1(560)579-[address] [place], [place] 4585408-29-2022 11:24-0400 Body krnavd900.39 kgMD Flash Lovelace Work Phone: 1(330)391-[address] [place], [place] 4585408-23-2022 10:45-0400 Body eurcvt258.96 cmCristian Beaver Other [employer] Other 08-23-2022 10:45-0400Body mass index (BMI) [Ratio] 32.09 kg/a6MiowuzgCristian Beaver Other [facility] [employer] [employer] Other 08-23-2022 10:45-0400Body kbmjiclpdba29.5 [degF] Cristian Beaver Other [facility] Other 08-23-2022 10:45-0400Body ywbcke549.4 kgCristian Beaver Other [employer] Other 08-23-2022 10:45-0400Diastolic blood uufcwwmh27 mm[Hg] Cristian Beaver Other [employer] Other 08-23-2022 10:45-8909McO7% (BldA) [Mass fraction]97 % Cristian Beaver Other [employer] Other 08-23-2022 10:45-0400Systolic blood ujlixohw578 mm[Hg] Cristian Beaver Other [employer] Other 08-19-2022 17:00-0400Respiratory rate16 /Shameka Brock MD Work Phone: 1(589) [phone]mNthspv05-01-0641 15:28-0400Body xraaitzhntm03.9 [degF]Carson Brock MD Work Phone: 1(280) [phone]powRunjgx21-14-7346 15:28-0400Diastolic blood fitnrajo35 mm[Hg]Carson Brock MD Work Phone: 1(240) [phone]-015487AxkiJjmvbi23-80-4002 15:28-0400Heart rate65 /Shameka Brock MD Work Phone: 1(297) [phone]mttSdebhj21-43-8817 15:28-3434JvI5% (BldA) [Mass fraction]94 %Carson Brock MD Work Phone: 1(905) [phone]iakVsxeqv57-79-5947 15:28-0400Systolic blood pressure 153 mm[Hg]Carson Brock MD Work Phone: 1(894) [phone]-107976GvooAnqvmr83-02-5994 19:35-0400Body lomoct584 cmRyan Vinod DIAZ Work Phone: 1(944) [phone]zepjp15-47-7624 19:35-0400Body mass index (BMI) [Ratio]31.71 kg/m2Carson Brock MD Work Phone: 1(656) [phone]abtaz83-41-6548 19:35-0400Body .04 kg Carson Brock MD Work Phone: 1(985) [phone]pwcxp04-59-0866 09:43-0400Body Ambreen Guerra MD Work Phone: 1(898) [phone]lPrmvll55-50-8193 09:43-0400Body mass index (BMI) [Ratio]32.21 kg/o8TtiqaAngela Guerra MD Work Phone: 1(792) [phone]srQvszim06-19-7213 09:43-0400Body bmecyfluzzy27.1 [degF]Angela Guerra MD Work Phone: 1(065)[phone]14RuhcHehydy97-59-8724 09:43-0400Body tytnae028.81 kg Angela Guerra MD Work Phone: 1(550) [phone]yrkch35-62-7626 09:43-0400Diastolic blood vpewzwxg78 mm[Hg]Angela Guerra MD Work Phone: [facility]:nwdwodq04-78-2635 09:43-0400Heart rate66 /Kevin Guerra MD Work Phone: 1(411)[phone]58CclvNzitod00-94-0736 09:43-0400Respiratory rate16 /min Angela Guerra MD Work Phone: 1(265) [phone]gaBmdalh11-44-5916 09:43-9323FsU7% (BldA) [Mass fraction]95 %Angela Guerra MD Work Phone: 1(109) [phone]Hpzuks98-95-4241 09:43-0400Systolic blood pressure 181 mm[Hg]Angela Guerra MD Work Phone: [facility]:kutctpr33-77-5784 14:15-0400Respiratory rate16 /minSarely Mcguire MD Work Phone: [phone])[phone]apcSvpoky69-68-9275 07:53-0400Body swgwogehdti07.9 [degF]Mikey Mcguire MD Work Phone: [phone]netWfhtpx81-19-3089 07:53-0400Diastolic blood bhupdpbs01 mm[Hg]Mikey Mcguire MD Work Phone: 1(471)[phone]sypTlixng75-83-6884 07:53-0400Heart rate66 /minSarely Mcguire MD Work Phone: 1(533)[phone]rZpqwug46-09-6821 07:53-2003VnM1% (BldA) [Mass fraction]91 %Mikey Mcguire MD Work Phone: 1(725)[phone]xlzfm13-34-1973 07:53-0400Systolic blood pressure 133 mm[Hg]Mikey Mcguire MD Work Phone: 1(011)[phone]kpbhz88-32-5586 20:43-0400Body xzdaax414 Malika Mcguire MD Work Phone: 1(752)[phone]gkldh13-44-8918 20:43-0400Body mass index (BMI) [Ratio]32.1 kg/a6VoxhzbMikey Mcguire MD Work Phone: 1(901)[phone]qGtcvnl44-07-8906 20:43-0400Body nfiufp558.4 kg Mikey Mcguire MD Work Phone: 1(664)[phone]baQryaao09-50-6077 09:04-0400Body ocrjgw465 Uzma Silvestre MD Work Phone: 1(243)859-[address] [place], [place] 8409805-18-2022 09:04-0400Body mass index (BMI) [Ratio]32.38 kg/o9JjfzoDashawn Silvestre MD Work Phone: 1(699)627-[address] [place], [place] 8409805-18-2022 09:04-0400Body xkoxyzpgzxi24.11 [degF]Dashawn Silvestre MD Work Phone: 1(901)783-[address] [place], [place] 8409805-18-2022 09:04-0400Body weight 114.4 kgDashawn Silvestre MD Work Phone: 1(293)319-[address] [place], [place] 8409803-30-2022 09:44-0400Body fpapso777 Uzma Silvestre MD Work Phone: 1(493)659-[address] [place], [place] 8409803-30-2022 09:44-0400Body mass index (BMI) [Ratio]31.07 kg/y7QzuwfDashawn Silvestre MD Work Phone: 1(816)960-[address] [place], [place] 8409803-30-2022 09:44-0400Body weight 109.77 kgDashawn Silvestre MD Work Phone: [facility]02-12-2020 14:17-0500BMI (Body Mass Index)31.46 kg/o6HnowajhSt. John of God HospitalKushIeavZqncgq43-40-6018 14:17-0500Body qilaib012.13 kgSt[address] John of God HospitalLybwDtbxQmhayn83-18-5191 14:17-0500BP Buybmborq51 mm[Hg][facility]02-12-2020 14:17-0500BP Brlwnigx253 mm[Hg][facility] 10-09-2019 14:17-3733Sqnakq301 cmAJ.W. Ruby [facility] HospitalQbhlAtxqDlzycz21-09-1895 14:17-0500 Pulse (Heart Rate)71 /minSt. John of God HospitalZmxjShwiNirwgf44-96-4535 14:17-0500Pulse Rsufiauh42 %[facility] HospitalNviuOesoGjufwp43-82-0195 09:57-0400BMI (Body Mass Index) 27.99 kg/m2[facility] HealthBrfspyApqfFpgsjf17-85-0627 09:57-0400Body cecoiu88.88 kgKettering HealthArmooxFuebOnwpwk73-74-6186 09:57-0400BP Kpoybcsoe76 mm[Hg][facility] 03-13-2019 09:57-0400BP Gfzshvtg261 mm[Hg][facility] HealthHpramjEvnjTqqmps95-73-2972 09:57-0430Vsmjbv094 [facility] CenterBdxfveFbxoSearyb44-33-2364 09:57-0400Pulse (Heart Rate)72 /minKettering HealthDofajdErfxRpjoau25-71-0717 09:57-0400Pulse Xzehgjvt99 %[facility] HealthFkpppwBupyNwwbpb88-51-8787 09:57-0400Respiratory Rate16 /[facility] 10-25-2018 15:07-0500Body Wmsuqkikscu92.39 [degF][facility] 10-25-2018 15:07-0500BP Xfuplekax21 mm[Hg][facility] HospitalIsftVkicDeiozx83-50-5514 15:07-0500BP Qnqeunts115 mm[Hg][facility] HospitalSebtGfypHxfjzi42-38-9491 15:07-0500Pulse (Heart Rate)96 /minC[facility]ston [facility] HospitalJlduTowqCvahex42-61-5050 15:07-0500Respiratory Rate16 /[facility]02-21-2019 15:29-0500Body Oonbfjydiur53.4 [degF] [facility] HospitalJutwUdvdXcshzd36-12-8894 15:29-0500BP Umyappwyc81 mm[Hg][facility]02-21-2019 15:29-0500BP Ytobxpft808 mm[Hg][facility] 10-18-2018 15:29-0500Pulse (Heart Rate)86 /minC[facility]ston [facility] HospitalVnnyXokkSrnrgx67-33-6081 15:29-0500Respiratory Rate16 /[facility]02-15-2019 18:41-0500BP Lkrioiyee97 mm[Hg][facility] HospitalAkbdMbleXuyill62-37-5398 18:41-0500BP Aqbosyav130 mm[Hg][facility] HospitalBhxhQdrhOllveg41-93-7821 12:17-0500Body Kkajdpqvzev13.2 [degF] [facility] HospitalPlmvBrhxRjaqft67-16-4216 12:17-0500Pulse (Heart Rate)72 /[facility]02-15-2019 12:17-0500Pulse Ezrfyymd01 %[facility] 10-12-2018 12:17-0500Respiratory Rate14 /[facility]02-11-2019 06:20-0500BMI (Body Mass Index)27.99 kg/x9SpcfoylCranston General HospitalTzxwYuhqOslmsn66-23-0509 06:20-4441Axskrd981 cmCranston General HospitalVorpQgzpTcmdmn68-58-4418 06:20-1045Gnsndd40.88 kg [facility] HospitalTdugQvghMxvnqu69-12-2637 13:08-0500Body Wgagqmodrbm86.2 [degF][facility] HospitalZcfeGvsgRfouqf30-30-8233 13:08-0500BP Xfxjcexrg65 mm[Hg][facility] 10-04-2018 13:08-0500BP Vgvmbsii168 mm[Hg][facility] HospitalNhqvErolJkdxpf15-59-0762 13:08-0500Pulse (Heart Rate)87 /[facility]02-07-2019 13:08-0500 Respiratory Rate16 /minC[facility]ston General HospitalStkuYnaeYxsscx81-11-1722 14:15-0500BMI (Body Mass Index)30.3 kg/u4QnsaslqCranston General HospitalOviyMdjhDvowaw34-35-0954 14:15-0500Body Yxmbqgqwmxr70.9 [degF][facility] HospitalMpuaQkysIeweov73-34-7995 14:15-0500BP Rucaouxzm90 mm[Hg][facility] HospitalMqjiZbmoIemxqp08-91-1377 14:15-0500BP Zxwsvytp807 mm[Hg][facility] 09-20-2018 14:15-9659Kvqebu830 cmCranston General HospitalRykgNxoqUpfblm39-46-2107 14:15-0500 Pulse (Heart Rate)92 /minCranston General HospitalHfszPaseQnsvpc40-39-7514 14:15-0500Respiratory Rate16 /[facility]01-24-2019 14:15-3035Ycgceb782.05 kgCranston General HospitalLhgnDqwwCxmacb98-79-1404 10:30-0500Respiratory Rate20 /[facility] 07:36-0500Body Uqdvljodavq58.3 [degF][facility]01-17-2019 07:36-0500BP Zkwamrpxa00 mm[Hg][facility] 09-13-2018 07:36-0500BP Borpxbrl070 mm[Hg][facility] HospitalTskamoydpPeriXdusto31-53-3745 07:36-0500Pulse (Heart Rate)103 /minEating [facility] a Behavioral HospitalRbyokcqfpYvytFmamoi71-05-2131 07:36-0500Pulse Khtkgxsj20 %[facility] HospitalNzyzcptuiGxgfDqvsqg31-37-0462 19:09-0500BMI (Body Mass Index)31.58 kg/e7XyvudqEating Recovery Center a Behavioral HospitalLzcyfyeltBeccCnqzde36-99-7600 19:09-0500 Ccuhfn429 cmEating Recovery Center a Behavioral HospitalLfzgtkrhxWkzlUecxqj38-39-4315 19:09-0466Fxvsey579.58 kgNicole [facility] Encounters Encounter DateEncounter TypeCare ProviderFacilityStart: 06-10-2025 End: 22-71-2074Mfbdho flowsKen Lovelace MD Work Phone: noms [facility] MedinceStart: 06-10-2025 End: 97-72-5032Wmryij flowsheetFlash Lovelace MD Work Phone: noms [facility] MedinceStart: 06-10-2025 End: 33-33-0619Kenrg of hemosiderin, Vini Lovelace MD Work Phone: noms HealthcareStart: 06-10-2025 End: 02-00-1459Ftejkmb encounter procedureFlash Lovelace MD Work Phone: noms [facility]ickey MedinceComment on above:Routine general medical examination at health care facility (Primary Dx); Screening for lipid disorders; Medicare annual wellness visit, subsequent; 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HCC); Encounter for immunization; Opioid dependence, uncomplicated (HCC); Acute eczematoid otitis externa of right earStart: 06-10-2025 End: 92-46-1102debuspqwllAKOIZ M ALDANot AvailableStart: 06-06-2025 End: 64-71-8933Cdmgtc Song Garcia RNRiverside Vascular SurgeonsComment on above:PVD (peripheral vascular disease) (Primary Dx)Start: 06-05-2025 End: 41-96-8896dsihzdbmktYOHKettering Health Main Campustart: 06-02-2025 End: 33-23-3256Nruylr Song Garcia RNRiverside Vascular SurgeonsComment on above:PVD (peripheral vascular disease) (Primary Dx)Start: 05-29-2025 End: 79-84-1829ApoxnbArxfh M Alda MD Work Phone: noms [facility] Dickey MedinceComment on above:PVD (peripheral vascular disease) with claudicationStart: 05-26-2025 End: 14-57-1017Rboxcjcot encounterElaine Saab LPN Work Phone: noms POPULATION HEALTHStart: 05-20-2025 End: 31-83-7307Yuzvdn outpatient visit 25 minutesFlash Lovelace MD Work Phone: NOMS [facility] Family MedinceComment on above:Pneumonia due to infectious organism, unspecified laterality, unspecified part of lung (Primary Dx)Start: 05-20-2025 End: 70-93-9275daghtdaugjITWNN M ALDANot AvailableStart: 05-14-2025 End: 53-76-8689vzivyxogdmWmtwx Saab [employer]OX STORAGE WORKER Work Phone: noms POPULATION HEALTHStart: 05-09-2025 End: 26-67-3928Luiktrtbib and management of inpatientVivienne Gerard MD Work Phone: r8EComment on above:HemoptysisStart: 05-04-2025 End: 67-08-0488Vwtbauczqr and management of inpatientMichael Frings Facility:[facility]tart: 21-42-7546Oeq-patient / Non-visitYuhann Dayday Martines MD-[facility] Pulmonary Work Phone: Start: 92-83-6095Smnmqxjpye and management of inpatientObaydhi Arteaga MD-[facility] [place] [facility] Work Phone: Start: 37-93-3295mpebkywrrkl Kavya Lovelace MD Work Phone: [facility] Work Phone: Start: 05-02-2025 End: 99-74-6530Uungne Lynnette King PA Work Phone: noms [facility] Family MedinceStart: 05-02-2025 End: 68-74-9371Ikrnck Lynnette King PA Work Phone: NOMS [facility] Family MedinceStart: 05-02-2025 End: 72-88-7383Dfntzq outpatient visit 15 minutesZoë BROWER Work Phone: NOFI [facility] Family MedinceComment on above:Hemoptysis (Primary Dx); RhonchiStart: 05-02-2025 End: 43-23-1334gndausgzqmYTENPSteffany Ralph AvailableStart: 04-30-2025 End: 76-17-2448Kigsevyfn Result EncounterGeneric External Data ProviderNOMS External Department UnsolicitedStart: 04-30-2025 End: 50-84-4888Kgfjvlaiu Result EncounterGeneric External Data ProviderNOMS External Department UnsolicitedStart: 04-29-2025 End: 54-12-9350Zejgxfgqt encounterSjairo MunsonMS Kenan Dickey MedinceComment on above:Medication Question (Has a terrible cold and runny nose wanted to know if you could zuly in a z-packfor him.)Benign essential hypertensionStart: 04-23-2025 End: 01-00-1154Vsxqsj outpatient visit 25 minutesMohsen Sarabia MD Work Phone: [facility] Vascular SurgeonsComment on above:Critical lower limb ischemia (HCC) (Primary Dx)Start: 04-23-2025 End: 94-11-6376dgbtqsdvlxOEXHeart of the [facility] AmbulatoryStart: 04-23-2025 End: 11-66-9433enoehotlwbEXSProMedica [facility] Hospital HospitalStart: 04-21-2025 End: 23-55-8224Hnwrlxnus encounterElaine Saab LPN Work Phone: NOAL POPULATION HEALTHStart: 04-16-2025 End: 72-12-5730Gheuzwwbi Result EncounterGeneric External Data ProviderNOMS External Department UnsolicitedStart: 04-16-2025 End: 24-02-9867Fjdsbiljg Result EncounterGeneric External Data ProviderNOMS External Department UnsolicitedStart: 04-15-2025 End: 38-13-3168Jclqzgdql Result EncounterGeneric External Data ProviderNOMS External Department UnsolicitedStart: 04-15-2025 End: 80-50-1858Esbworyxj Result EncounterGeneric External Data ProviderNOMS External Department UnsolicitedStart: 04-15-2025 End: 26-46-7166zadvnnduubZWHYC M ALDANot AvailableStart: 04-14-2025 End: 42-49-4067Pujovh outpatient visit 25 minutesFlash Lovelace MD Work Phone: [facility] Kenan Dickey MedinceComment on above:PVD (peripheral vascular disease) with claudication (Primary Dx); Ischemic toe ulcer, right, with 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); Osteomyelitis of right foot, unspecified type (HCC)Start: 04-14-2025 End: 98-35-7897youueyfrboATJGD M ALDANot AvailableStart: 04-09-2025 End: 70-35-6900Qzgaxkszi encounterZoë BROWER Work Phone: NOMS [facility] MedinceStart: 04-08-2025 End: 25-04-9008Iwywus Lynnette King PA Work Phone: NOMS [facility] MedinceStart: 04-08-2025 End: 71-65-8630Fmgxwn Lynnette King PA Work Phone: NOUO [facility] MedinceStart: 04-08-2025 End: 16-18-3677Qoxmtuzj Result EncounterZoë BROWER Work Phone: NOTA External Department UnsolicitedStart: 04-08-2025 End: 74-86-8589Lgtgbv outpatient visit 25 minutesZoë BROWER Work Phone: NOMS Kenan Dickey MedinceComment on above:PVD (peripheral vascular disease) with claudication (Primary Dx); Acquired absence of left foot (HCC); Ischemic toe ulcer, right, with 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)Start: 04-08-2025 End: 52-26-3356wxnmouoreeTUXJW M HEMMERNot AvailableStart: 04-02-2025 End: 57-98-5735Bposhy outpatient visit 15 minutesMohsen Sarabia MD Work Phone: [facility] Vascular SurgeonsComment on above:Critical lower limb ischemia (HCC) (Primary Dx)Start: 04-02-2025 End: 00-96-9062ivrenckowzMHFPaula SARABIAUniversity [facility]als [facility] AmbulatoryStart: 03-31-2025 End: 28-34-2389Ajwxco outpatient visit 25 minutesFlash Lovelace MD Work Phone: [facility] MedinceComment on above:PVD (peripheral vascular disease) with claudication; History of prostate cancer; Urinary hesitancyStart: 03-31-2025 End: 75-53-4838xffmtbrnxsCIWGO M ALDANot AvailableStart: 70-26-8303Ssqmjybohx and management of inpatientJecamilla MelendezrerFacility:[facility] Hospitaltart: 03-18-2025 End: 85-94-6289Lejfqlribdjvb procedureBrenna Galloway [facility] Heart & Vascular PhysiciansStart: 03-14-2025 End: 65-86-1776Ecxktsrlxydyc procedureLudivina Garcia [facility] Vascular Surgeons Start: 03-14-2025 End: 39-64-8792Melmjbcyiq and management of inpatientErika Daiana Macdonald MD Work Phone: [facility] Vascular Thoracic Surgery Start: 03-14-2025 End: 99-84-2923Oqgmxi follow up visit related to original Caron Sarabia MD Work Phone: [facility] Heart, Lung & Vascular SurgeonsComment on above:Acute pain of right lower extremity (Primary Dx)Start: 03-14-2025 End: 13-02-4864yzkcxaidbhTHTPaula SARABIAUniversity Hospitals Lake [facility] Center AmbulatoryStart: 03-14-2025 End: 90-71-9319wdegzllaquQDMISJaden Riley Cheondoism HospitalStart: 03-13-2025 End: 99-13-4535Rpwmtnepcasox Saima Garcia [facility] Cardiac Non-Invasive LabStart: 03-12-2025 End: 57-32-4321Mviggsrht to same day surgery centerCristian Beaver MD-[facility] CampusStart: 03-12-2025 End: 72-61-7525bamqxfdqitVddlo M Alda MD Work Phone: [facility] Work Phone: Start: 21-44-8771Jmu-patient / Non-visitMattharrison Negron MD-[facility] Vascular Surg Work Phone: Start: 03-11-2025 End: 22-28-4117wapikeaeoaCcomf M Alda MD Work Phone: [facility] Work Phone: Start: 03-11-2025 End: 60-55-0238Fehthlm encounter procedureCristian Beaver MD-[facility] Vascular Surg Work Phone: Start: 02-13-2025 End: 42-95-2096DvpyicJnhov M Alda MD Work Phone: NOMS CI FMComment on above:Primary insomnia; Other chronic pain; Lumbosacral spondylosis without myelopathyStart: 01-09-2025 End: 90-62-3013Aenmhcleyla Wilson [employer] MODEL [employer]KER Work Phone: NOMS CI FMStart: 01-09-2025 End: 81-99-3990Vfbsxlan Wilson [employer] MODEL MAKER Work Phone: NOMS CI FMStart: 01-09-2025 End: 39-99-5352Yxdyji outpatient visit 25 minutesBhaskar Wilson [employer]IATURE MODEL MAKER Work Phone: NOMS CI FMComment on above:Dysuria (Primary Dx); History of prostate cancer; Urinary hesitancy; Right-sided low back pain without sciatica, unspecified chronicityStart: 01-09-2025 End: 69-50-8162cvmpqaabdkOGR C MILLERNot AvailableStart: 01-02-2025 End: 64-82-5535KxxqzgHezpo M Alda MD Work Phone: NOMS CI FMComment on above:Other chronic pain; Lumbosacral spondylosis without myelopathyStart: 01-97-6891zdabkpdwalNNXPAUOur Lady of Mercy Hospital - Andersontart: 11-26-2024 End: 83-64-3769SfkwavZcxhi M Alda MD Work Phone: NOMS CI FMComment on above:Other chronic pain (Primary Dx); Sinusitis, unspecified chronicity, unspecified location; Lumbosacral spondylosis without myelopathyStart: 11-25-2024 End: 29-30-5881gazltpxgkhQoxgc [facility] POPULATION HEALTHStart: 11-04-2024 End: 28-23-4706jitpvalbrkYSDKM M ALDANot AvailableStart: 10-18-2024 End: 12-30-2338VrdjypJfohlar Courtney HUERTA CI FMComment on above:Lumbosacral spondylosis without myelopathyStart: 66-36-4740unnthfmsqfWCIHeart of the [facility]ies [facility] AmbulatoryStart: 09-23-2024 End: 59-78-6292Mjqbrbyirdzjs Saima Garcia [facility] Heart, Lung & Vascular SurgeonsStart: 09-12-2024 End: 99-87-8907SsmqglNvcpt M Alda MD Work Phone: NOMS CI FMComment on above:Lumbosacral spondylosis without myelopathyStart: 08-20-2024 End: 01-73-6248Uughidvglhshx Saima Garcia [facility] Heart, Lung & Vascular SurgeonsStart: 08-12-2024 End: 64-34-1798Btfmcs outpatient visit 25 minutesFlash Lovelace MD Work Phone: NOMS CI FMComment on above:Other chronic pain (Primary Dx); Primary insomnia; Seasonal allergic rhinitis due to pollen; Encounter for vaccination; Phantom limb pain (CMS/HCC)Start: 08-12-2024 End: 95-69-3495fsvlzbolwgZOSPD M ALDANot AvailableStart: 08-06-2024 End: 98-28-8958AimwanIpuhw M Alda MD Work Phone: NOMS CI FMComment on above:Lumbosacral spondylosis without myelopathyStart: 08-01-2024 End: 85-05-3576Gfvnba OnlyLudivina Garcia [facility] Heart, Lung & Vascular SurgeonsComment on above:PVD (peripheral vascular disease) (HCC) (Primary Dx) Start: 07-29-2024 End: 99-94-0300ounvguizvdNnewadc [facility] Hospitalacility:[facility] Hospitaltart: 07-22-2024 End: 19-52-2444wghwwoexcySFECHYMount St. [facility] Start: 07-11-2024 End: 04-18-3327Bwsafxwbf Result EncounterGeneric External Data ProviderNOMS External Department UnsolicitedStart: 07-11-2024 End: 53-29-4924Ydmjdgahp Result EncounterGeneric External Data ProviderNOMS External Department UnsolicitedStart: 07-10-2024 End: 34-15-7718dbywwqcldaICPDGRMount St. [facility] Hospital Start: 07-05-2024 End: 58-84-6994YwlrhkFsgbx M Alda MD Work Phone: NOMS CI FMComment on above:Lumbosacral spondylosis without myelopathyStart: 07-03-2024 End: 27-19-9861Knttwdzxx Result EncounterGeneric External Data ProviderNOMS External Department UnsolicitedStart: 07-03-2024 End: 45-69-8413Piyqfjogp Result EncounterGeneric External Data ProviderNOMS External Department UnsolicitedStart: 06-17-2024 End: 21-51-0767Oedtumkvk Kavya Lovelace MD Work Phone: NOMS CI FMStart: 05-28-2024 End: 68-62-9006ckmwthjfumJQQWTEUMemorial Hospital CenterStart: 05-21-2024 End: 52-39-4256Csvyuy Lynnette BROWER Work Phone: NOMS CI FMStart: 05-21-2024 End: 87-20-8658Uyeoal Lynnette BROWER Work Phone: NOMS CI FMStart: 05-21-2024 End: 86-51-8943Ztwcds outpatient visit 25 minutesZoë BROWER Work Phone: NOMS CI FMComment on above:Chest pain in adult (Primary Dx); Lumbosacral spondylosis without myelopathy; 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CMS/HCC); Seasonal allergic rhinitis due to pollenStart: 05-14-2024 End: 30-51-4273Fleqknaum Result EncounterGeneric External Data ProviderNOMS External Department UnsolicitedStart: 05-14-2024 End: 70-00-7509Aqixsxcxt Result EncounterGeneric External Data ProviderNOMS External Department UnsolicitedStart: 05-13-2024 End: 87-68-3235Dnlnnqtkj Result EncounterGeneric External Data ProviderNOMS External Department UnsolicitedStart: 05-13-2024 End: 52-78-7950Fdlwyvrye Result EncounterGeneric External Data ProviderNOMS External Department UnsolicitedStart: 05-12-2024 End: 91-08-6314excwlofjkaDNUHY [facility] HospitalStart: 04-26-2024 End: 53-76-5309Imxsvw Lynnette BROWER Work Phone: NOMS CI FMStart: 04-26-2024 End: 83-09-2764Mcqzev Lynnette BROWER Work Phone: NOMS CI FMStart: 04-26-2024 End: 37-40-3856Wsjvufz encounter Cherrie BROWER Work Phone: NOMS CI FMComment on above:Medicare annual wellness visit, subsequent (Primary Dx); ACP (advance care planning); Primary insomnia; Neuropathy; Other chronic pain; Paresthesia of skin; Phantom limb pain ([facility]/HCC); Polymyalgia rheumatica ([facility]); Mild persistent asthmatic bronchitis without complication ([facility]); Chronic bronchitis, unspecified chronic bronchitis type ([facility]); Dyspnea on exertion; Orthopnea; Snoring; Solitary pulmonary nodule; Abdominal aortic aneurysm (AAA) without rupture, unspecified part ([facility]); Aortic valve insufficiency, etiology of cardiac valve disease unspecified; Atherosclerosis of [place] coronary artery of [place] heart without angina pectoris ([facility]/HCC); Benign essential hypertension ([facility]/HCC); Stenosis of right carotid artery; Chronic heart failure with preserved ejection fraction ([facility]/HCC); Chronic ischemic heart disease ([facility]); Mitral valve insufficiency, unspecified etiology; Paroxysmal atrial fibrillation ([facility]); Preinfarction syndrome ([facility]); PVD (peripheral vascular disease) with claudication (CMS/HCC); [...] amputation of left foot (CMS/HCC); Atherosclerosis of [place] arteries of extremities with rest pain, unspecified extremity (CMS/HCC); Pulmonary hypertension, unspecified (CMS/HCC)Start: 04-24-2024 End: 32-75-6462srasdlbtctBUNNXLDMarietta Osteopathic Clinictart: 12-26-2023 End: 27-45-9681maybrvaglnJAQDRMLL E PERRYFacility:EU [facility] HospitalueStart: 12-26-2023 End: 81-28-5718Lbaupvf encounter procedureJENNIFER E JAY [facility] start: 10-17-2023 End: 16-29-3324euxivrmwhmKC Flash Lovelace Work Phone: [facility] Work Phone: Start: 10-17-2023 End: 57-98-5192Urvsxlt encounter procedureMD Flash Lovelace Work Phone: [facility]-Electrodiagnostics Work Phone: Start: 39-13-9719Ylv-patient / Non-visitMD Rugen Albania Work Phone: [facility] Vascular Surgery Work Phone: Start: 10-12-2023 End: 06-54-5553Wualrwbbg to same day surgery centerMD Flash Lovelace Work Phone: [facility]-Interventional Radiology Work Phone: Start: 10-12-2023 End: 41-90-3043wkeiamqunpEK Rugen M Alda Work Phone: [facility] Work Phone: Start: 10-03-2023 End: 62-99-0366xswdbwmhkhXalpjyc Buehrer Other [place] [email or web address] Other Start: 12-55-3864Qmcyaw outpatient visit 25 minutes Cristian Mitchell Vascular SurgeryStart: 86-21-6887ofdrcuquwpXQAY [facility] Hamiltontart: 08-10-2023 End: 22-17-3281Lmtkba outpatient visit 15 minutesScar MATOS Work Phone: [facility] OrthopedicsComment on above:Hx of total hip arthroplasty, right (Primary Dx)Start: 08-10-2023 End: 28-57-4685Ecztkmuiik hospital visit by Asad MATOS Work Phone: [facility] RadiologyStart: 08-09-2023 End: 34-25-9671Vuunaa outpatient visit 10 minutesMohsen Sarabia MD Work Phone: [facility] Heart, Lung & Vascular SurgeonsComment on above:Critical lower limb ischemia (HCC) (Primary Dx)Start: 06-20-2023 Documentation Lou Anna [facility]ioR[facility] Heart, Lung & Vascular SurgeonsStart: 63-11-3503Yvavzi outpatient visit 25 minutesCristian Mitchell Vascular SurgeryStart: 06-12-2023 End: 98-30-3016brqffizcvuVE Rugen M Alda Work Phone: [employer] Other Start: 06-12-2023 End: 22-28-2708Guyzacm encounter procedureMD Flash Lovelace Work Phone: [facility]-Ultrasound [facility] VascularStart: 06-06-2023 End: 65-91-0267Diivm of hemosiderin, quantKaren Hemmer PA Work Phone: [facility] HospitalStart: 88-89-1208Czzwra outpatient visit 25 minutesJackkell Sky Vascular SurgeryStart: 05-23-2023 End: 88-90-3364wannncnbcsFO Rugen M Alda Work Phone: [employer] Other Start: 05-23-2023 End: 59-06-4034Mquvcnj encounter procedureMD Flash Lovelace Work Phone: [facility]-Ultrasound [facility] VascularStart: 72-57-6878Irlvrg OnlyMohsen Sarabia MD Work Phone: [facility] Heart, Lung & Vascular SurgeonsComment on above:PAD (peripheral artery disease) (HCC) (Primary Dx)Start: 12-20-2022 End: 02-08-4137Jwuxwvq encounter procedureBRENNA MOSQUERA [facility] start: 12-07-2022 End: 28-20-8483hlpvmppvmkUA RUGEN ALDAFacility:P7Ovlct: 11-14-2022 End: 05-77-0869kyhhavgbnfCpqkzb Ruttino Other [facility] [place] [email or web address] Other Start: 54-87-1024Fosmlk-up encounterJajuliana FalkoFTAYLOR Vascular SurgeryStart: 11-10-2022 End: 41-78-2730agygvrpsegJD RUGEN ALDAFacility:Y2Axlhc: 11-08-2022 End: 11-68-2926Soaddsi encounter procedureJEMANUELA Hortensia MOSQUERA [facility] start: 11-03-2022 End: 70-23-9026Zbdgeamwah and management of inpatientGregory Ortiz Montoya MD Work Phone: [facility] Surgical Unit 3Start: 10-30-2022 End: 79-83-8740Wccejgwrj department patient visitFLASH ESPINAL Work Phone: comment on above:Community acquired pneumonia of left lung, unspecified part of lung (Primary Dx); COPD exacerbation (HCC)Start: 10-11-2022 End: 23-48-6236quxzlobbwnKW FLASH ALDAFacility:A7Osvqx: 21-13-8471Qpchlgwtwfzpr procedureJulia Borjas [facility] Heart, Lung & Vascular SurgeonsStart: 76-84-4185KigjzcGnmot Coffing [facility] Pulmonary PhysiciansComment on above:Chronic obstructive pulmonary disease, unspecified COPD type (HCC)Start: 07-14-2022 End: 10-49-2720Anbdhw outpatient visit 15 minutesScar Ortega APRNAXADO Work Phone: [facility] OrthopedicsComment on above:Hx of total hip arthroplasty, right (Primary Dx)Start: 07-14-2022 End: 56-96-6963Jtgompudym hospital visit by Asad Ortega APRNAXADO Work Phone: [facility] RadiologyStart: 35-96-0733Sccabg Only Katie Anna [facility] HospitalioR[facility] Heart, Lung & Vascular SurgeonsComment on above: Bilateral carotid artery stenosis (Primary Dx)Start: 05-03-2022 End: 11-73-9868zcjvxtjovrZfvctrz Buehrer Other [place] [email or web address] Other Start: 75-71-1950Njmprk outpatient visit 25 minutes Cristian SmithKind[facility] Vascular SurgeryStart: 04-25-2022 End: 37-60-7690Lyqcoelmf to same day surgery centerMD Flash Lovelace Work Phone: [facility]-Interventional RadiologyStart: 04-19-2022 End: 33-90-6710njbobzbxyzZebcgsd Buehrer Other [place] [email or web address] Other Start: 01-60-5571Guclux outpatient new 45 minutes [facility] Vascular SurgeryStart: 97-64-0814Zuxgtnfdflhgl procedureAaron Fenton DPM Work Phone: [facility]Start: 04-14-2022 End: 75-82-5433Vzhgdnikk department patient visitCarson Brock MD Work Phone: [facility] Medical ObservationStart: 76-39-5821Iyajwbfqbuvto procedureKatie [facility] Heart, Lung & Vascular SurgeonsStart: 02-25-2022 End: 64-17-4492Xsjpxb outpatient new 45 minutesMuna Otto MD Work Phone: [facility] Pulmonary PhysiciansComment on above: Chronic obstructive pulmonary disease, unspecified COPD type (HCC) (Primary Dx); Pulmonary noduleStart: 01-28-2022 End: 97-26-1791gefdwvwfvaJTVNVZP ALGHOTHANIFacility:F3Mfehr: 01-18-2022 End: 86-54-2660Fhxsqfropb and management of inpatientSteven Jagruti Mcguire MD Work Phone: [facility] Surgical Unit 3Start: 35-25-1683Vvoqobsklybrj procedureKatie [facility] Heart, Lung & Vascular SurgeonsStart: 01-12-2022 End: 52-37-5992Dpyrvr outpatient visit 15 minutesDashawn Silvestre MD Work Phone: [facility] OrthopedicsComment on above:Hx of total hip arthroplasty, right (Primary Dx)Start: 01-12-2022 End: 68-37-3716Yxnkfypikm hospital visit by Sebastian Silvestre MD Work Phone: [facility] RadiologyStart: 12-28-2021 End: 48-60-2189firkormcyfUBZQUWilmington Hospital PhysiciansStart: 12-28-2021 End: 03-03-7733Socusc outpatient new 30 minutesR[facility] Work Phone: [facility] DermatologyComment on above: Actinic keratosis (Primary Dx); SK (seborrheic keratosis); Inflamed seborrheic keratosis; Skin tenderness; Xerosis cutisStart: 11-24-2021 End: 83-49-3702Nscphy outpatient visit 15 minutesDashawn Silvestre MD Work Phone: [facility] OrthopedicsComment on above:Pain in prosthetic joint, subsequent encounter (Primary Dx)Start: 11-24-2021 End: 75-86-5929Quhzaptvqi hospital visit by Sebastian Silvestre MD Work Phone: [facility] RadiologyStart: 04-06-2021 End: 30-84-0535Ecjori Omar [facility] Heart, Lung & Vascular SurgeonsComment on above:Bilateral carotid artery stenosis (Primary Dx); PAD (peripheral artery disease) (HCC)PAD (peripheral artery disease) (HCC) (Primary Dx)Start: 09-11-2020 End: 08-93-3094Qppktw OnlyRhonda Oviedo Work Phone: [facility] Start: 03-16-2020 End: 82-50-1661Scffdhkqhs hospital visit by Solange Sarabia Work Phone: [facility] Peripheral Vascular Lab Comment on above:Bilateral carotid artery stenosisAtherosclerosis of wyandotte arteries of the extremities with ulceration (HCC)Start: 10-21-2019 End: 69-62-7976Xpeqldnhda hospital visit by Solange Sarabia Work Phone: 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)Start: 12-17-2018 End: 97-00-3154Gvwpdd outpatient new 30 minutesEugene Barnett Work Phone: [facility] ENTComment on above:Referred otalgia of right ear (Primary Dx); Bilateral temporomandibular joint painStart: 45-86-6848Udeemsv encounter procedureANALIA BRYANTacility:ENT Spec-NorthStart: 10-31-2018 End: 57-37-9394Hjifracxj department patient visitCHARLOTTE COURT HOUSE Deanna WAYBrecksville VA / Crille Hospitaltart: 10-31-2018 End: 43-00-8877Ejgrpo outpatient visit 10 minutesMohsen Sureshck Walker Work Phone: [facility] Heart, Lung & Vascular SurgeonsComment on above:Gangrene of left foot (HCC) (Primary Dx); Critical lower limb ischemiaStart: 10-31-2018 End: 23-60-4100Tutgyrvopm hospital visit by Solange Sarabia Work Phone: [facility] Cardiac Non-Invasive LabComment on above:Atherosclerosis of wy[place] artery of left lower extremity with rest pain (HCC) ; S/P bypass graft of extremity; Atherosclerosis of wy[place] artery of left lower extremity with rest pain (HCC) Start: 10-31-2018 End: 57-51-4061Axhhpht encounter procedureMohsen Sarabia Work Phone: [facility] Cardiac Non-Invasive LabComment on above: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) ; S/P bypass graft of extremity; 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)Start: 66-93-6515Pnccrglpbvjs of care jeffreyGrant Hospital & Care CoordinationStart: 10-26-2018 End: 14-51-4382Xvyjknt encounter procedureMine MurrayCincinnati Children's Hospital Medical CenterStart: 10-25-2018 End: 64-62-7421Wznggv follow up visit related to [facility] Islandmarissa Hargrove Lalitha Work Phone: [facility] Wound CareComment on above: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); Gangrene (HCC); PVD (peripheral vascular disease) (HCC); 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, left; Lower extremity edemaStart: 41-22-3204Bkluisvliufi of care jeffreyCherrington Hospital & Care CoordinationStart: 10-19-2018 End: 21-49-1601Nrtgxsn encounter procedureMine MurrayCincinnati Children's Hospital Medical CenterStart: 10-18-2018 End: 59-81-0114Iqbdao follow up visit related to original [facility] Islandmarissa Hargrove Lalitha Work Phone: [facility] Wound CareComment on above:Gangrene (HCC) (Primary Dx); 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 (HCC); PVD (peripheral vascular disease) (HCC); Lower extremity edema; 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, leftStart: 10-04-2018 End: 44-81-2206Uawktdynmk and management of inpatientBANNER CASA GRANDE MEDICAL CENTERRANDA HARGROVE NCVALDOBear Lake Memorial Hospitaltart: 10-04-2018 End: 64-97-1211Prhwbmhcpp and management of inpatientCox Southranda Mann Work Phone: [facility] 4 Bone & JointComment on above: Acute post-operative pain (Primary Dx)Start: 10-04-2018 End: 30-79-5303Hsuswy outpatient visit 15 minutesFlynn Mann Work Phone: [facility] Wound CareComment on above:Gangrene (HCC) (Primary Dx); PVD (peripheral vascular disease) ([facility]); Left foot pain; Critical lower limb ischemia; Ulcer of toe of left foot, with necrosis of bone (HCC)Start: 09-27-2018 Coordination of care planJoaquínchinle comprehensive health care facilityjose Maier [facility] UM & Care CoordinationStart: 09-27-2018 End: 32-75-3219Hdzcmat encounter procedureCarmillicent Maier [facility] HospitalStart: 09-21-2018 End: 07-30-3998Dshxywvjgopo of care planRadha Matos [facility] Wound CareStart: 09-21-2018 End: 05-22-4996Unzobpm encounter procedureMine MurrayCincinnati Children's Hospital Medical CenterStart: 09-20-2018 End: 60-75-6514Rwyvzqv encounter procedureFlynn Mann Work Phone: [facility] FluoroscopyComment on above:Critical lower limb ischemiaStart: 09-20-2018 End: 58-08-5933Kutcan outpatient visit 15 minutesFlynn Mann Work Phone: [facility] Wound CareComment on above:Critical lower limb ischemia (Primary Dx); Gangrene (HCC); PVD (peripheral vascular disease) (HCC); Left foot painStart: 09-04-2018 End: 36-69-4478Udvpmcqwbs and management of inpatientNicole Keisha Em Work Phone: [facility] Vascular Thoracic Surgery Comment on above:Ischemic foot (Primary Dx); PAD (peripheral artery disease) (HCC); Critical lower limb ischemiaStart: 62-36-0223Hiqlisg encounter procedureBARRACHEL Carver HospitalStart: 58-07-8964Rrqnpkv encounter procedureBARRACHEL Carver HospitalStart: 79-56-3193Rxvwoun encounter procedureBARRACHEL Carver HospitalStart: 10-31-2016 End: 15-53-6824UbhclzlrkrKEHP Deanna CARPENTEROMIDFacility:UTMCStart: 03-06-2014 End: 01-98-3588Otidwbs encounter procedureMartin [facility] Procedures DateProcedureProcedure DetailPerforming ClinicianStart: 85-41-1745Rfrnsvxvcqjess Hernandez MD Work Phone: Start: 93-46-0552Xbpdpsed Sandra Garcia MD Work Phone: start: 60-72-9624Jggdqxuc Sandra NOELomment on above:Performed By: #### XM #### [facility] ([facility]) [address] [place] [id number]: 27-68-8096Ziuwe typing serologic Tremaine Garcia MD Work Phone: Start: 33-03-3305IPL AND ELECTRONIC Irving Garcia MD Work Phone: Start: 27-08-6610Ntysqeyi blood count with white cell differential, Nancy Garcia MD Work Phone: Start: 18-54-9375Lledrqlwxr bloodJose Manuel Hernandez MD Work Phone: Start: 03-95-8983XVZ AND ELECTRONIC Irving Garcia MD Work Phone: Start: 69-94-2891Tbfgkwiu blood count with white cell differential, automatedRafaela Garcia MD Work Phone: Start: 95-56-2872Itnrmzrsqb bloodRafaela Garcia MD Work Phone: Start: 21-41-9543Tcibqdd function panelRafaela Garcia MD Work Phone: Start: 93-50-1593Luvsd count hematocritRafaela Garcia MD Work Phone: Start: 74-73-3365Bjhb screen quantitative vancomycin Gail Awad [facility] Work Phone: Start: 52-00-5406Spe bact xcpt urine blood/stool aerobic isolRafaela Garcia MD Work Phone: Start: 07-81-6843P-reactive proteinSeth W Murray DPM Work Phone: Start: 34-60-4209Dyteobjvyi bloodJose Manuel Hernandez MD Work Phone: Start: 10-58-5222Ta abdominal real time w/image limitedAndglen Hernandez MD Work Phone: Start: 91-33-5773Doyblfwsj b surf antibody hbsabAnjud Hernandez MD Work Phone: Start: 86-44-8841Cllbbyfti directJose Manuel Hernandez MD Work Phone: Start: 22-26-0438VRK AND ELECTRONIC DIFFJose Manuel Hernandez MD Work Phone: Start: 71-94-2134Bmhvwaqd blood count with white cell differential, automatedJose Manuel Hernandez MD Work Phone: Start: 11-85-8865Yumdp chest X-rayFlash Lovelace MD Work Phone: Start: 84-42-3898HPU BASIC METABOLIC PANELGeneric External Data ProviderStart: 93-19-6313AZN C REACTIVE PROTEINGeneric External Data ProviderStart: 77-81-2168LO FOOT RT MIN 3VGeneric External Data Provider Start: 88-49-0339ANU CBC WITH AUTO DIFFGeneric External Data ProviderStart: 20-59-2130YIALZR SIMPLEX VIRUS 1Kjean-paul BROWER Work Phone: Start: 30-29-2983Szhgt metabolic panel calcium total Muna Otto MD Work Phone: Start: 38-32-3468Vzp-invas physiologic std extremity art 2 levelMattharrison Barraza MD Work Phone: Start: 44-32-7589Ckwze metabolic panel calcium total Muna Otto MD Work Phone: Start: 31-37-6957Eeufx metabolic panel calcium total Muna Otto MD Work Phone: Start: 20-54-4848Xqhrk metabolic panel calcium total Muna Otto MD Work Phone: Start: 34-21-4031Enski count hematocritAna Luisa Murray MD Work Phone: Start: 17-53-3449Tdoeesaoorc extremity unilateral rs&i Mohsen Sarabia MD Work Phone: Start: 03-17-2025 End: 17-61-7066Hfa fem-ant tibl pst tibl proneal art/oth dstlJoy Cornelio Sarabia MD Work Phone: Start: 61-24-3057Vofsnex measurementDayton Osteopathic Hospital Physicians Work Phone: Start: 54-90-6926Dihjq metabolic panel calcium total Muna Otto MD Work Phone: Start: 87-27-7211Hmuxmhcdavhxbe time partial plasma/whole bloodAna Luisa Murray MD Work Phone: Start: 15-37-4662Jye routine ecg w/least 12 lds trcg only w/o i&rHafsdeanna Murray MD Work Phone: Start: 15-99-9056Caqzi typing serologic aboBeena Barraza MD Work Phone: Start: 67-60-0291Pnppkppbhni timeMattharrison Barraza MD Work Phone: Start: 97-32-9238Ygyqr metabolic panel calcium total Muna Otto MD Work Phone: Start: 35-19-6580Tdngkebegghydo time partial plasma/whole bloodDavid Richie Mast MD Work Phone: Start: 02-85-0375Aygil count hematocritAna Luisa Murray MD Work Phone: Start: 37-00-1606Xwmnz metabolic panel calcium total Muna Otto MD Work Phone: Start: 03-14-2025 End: 75-16-8959Huy-scan xtr veins unilateral/limited studyMashayy Barraza MD Work Phone: Start: 71-14-4336Xdw routine ecg w/least 12 lds trcg only w/o i&rPatrick Magy Otto MD Work Phone: Start: 95-60-6392Qef routine ecg w/least 12 lds trcg only w/o i&rElizabeth Keisha Escobar CNP Work Phone: Start: 54-41-3322Ablsmvcu blood count with white cell differential, manualScott Muna Stallings PA-C Work Phone: Start: 72-87-0869MUQAZHANNA Macdonald MD Work Phone: Start: 91-08-7908FLNCFLINA Macdonald MD Work Phone: Start: 22-51-4734NMHYAMY Macdonald MD Work Phone: Start: 63-40-6048Mfzfrwuwysz timeScott Muna Haylie PA-C Work Phone: Start: 25-70-2015IQJAFGQALIVIA Macdonald MD Work Phone: Start: 40-87-5290Rghrwr-up visitFollow-upELACRISTEL PARRA [facility]THStart: 83-59-4076DM DSA (Angiogram) Right LegFlash Lovelace MD Work Phone: Start: 22-88-8888SOEIJKADSOLFEDRES REPORTJoy Cornelio Sarabia MD Work Phone: Start: 68-65-3024Zsewh dip stick/tablet rgnt non-auto w/o micrscpKim Meet Wilson NP Work Phone: Start: 23-62-9905Vmmdopf of amputation of footAcquired absence of left footErika Saab LPNStart: 25-74-5020WJL BASIC METABOLIC PANEL Generic External Data ProviderStart: 20-49-2761GIB CBC WITH AUTO DIFFGeneric External Data ProviderStart: 94-15-6250LEW SED RATEGeneric External Data ProviderStart: 58-22-3631BGNQ DIFFERENTIALGeneric External Data ProviderStart: 02-18-7723MFF BASIC METABOLIC PANELGeneric External Data ProviderStart: 46-88-5564Aeoczsr of coronary artery bypass graftingHx of CABGFlash Lovelace MD Work Phone: Start: 92-01-2557LBI MAGNESIUMGeneric External Data ProviderStart: 73-35-8931GEN TROPONIN IGeneric External Data ProviderStart: 55-24-8182LPCR BASIC METABOLIC PANEL REFLEX MGGeneric External Data Provider Start: 39-28-8343QEH PROTIME/INRGeneric External Data ProviderStart: 10-12-2023 AngiographyMD Flash Lovelace Work Phone: Start: 65-98-5904Waqpzhqlhu ([place]) doppler flow mapping of vein of upper limbMD Flash Lovelace Work Phone: Start: 61-15-5621PK scan venography of lower limbsMD Flash Lovelace Work Phone: Start: 35-01-5303Jqxbymk ultrasonography of bilateral carotid arteriesMD Flash Lovelace Work Phone: Start: 49-01-8515Qlpfd brachial pressure indexMD Flash Lovelace Work Phone: Start: 20-40-1920Lcysxg scan of lower limb arteriesMD Flash Lovelace Work Phone: Start: 23-76-8911Nwejmug of amputation of footStatus post amputation of footToneen Christine PA Work Phone: Start: 34-53-8799Szmoqfgrvd exam chest single view Jose Escalona TECHNOLOGY SERVICES MANAGER Work Phone: Start: 86-17-5542Yfwum function panelDuke Claros MD Work Phone: Start: 12-30-8214Swuev of troponin quantitative Jass Barboza MD Work Phone: Start: 34-66-5919Pkcpb of troponin quantitative Jass Barboza MD Work Phone: Start: 57-34-0547Pis routine ecg w/least 12 lds trcg only w/o i&rJlucy Barboza MD Work Phone: Start: 21-67-5378Brkcw function panelDuke Claros MD Work Phone: Start: 79-38-6908CCM w or wo fol wcon,DopplerDuke Claros MD Work Phone: Start: 50-93-4490Lfnxt function panelDuke Claors MD Work Phone: Start: 21-28-3861Arazn function Mario Alberto Claros MD Work Phone: Start: 20-04-0973Shzsv humerus minimum 2 viewsGustavo Macdonald TECHNOLOGY SERVICES MANAGER Work Phone: Start: 17-49-0820Yooqy function Mario Alberto Claros MD Work Phone: Start: 11-04-2022 End: 52-57-5920Qpjb ia mult step method nos each organismDuke Claros MD Work Phone: Start: 68-26-6493Mvrlp s aureus methicillin resist amp probe tqUri Downey PharmDStart: 80-68-6455Vejbablfst chain reaction analysis Duke Claros MD Work Phone: Start: 62-83-9950ZDYK-CoV-2 (COVID-19) RNA [Presence] in Respiratory specimen by OREN with probe detectionRonnie Montoya MD Work Phone: Start: 89-07-1176Vr angiography chest w/contrast/noncontrastKrsejala Carline Khan PA-C Work Phone: Start: 02-01-5280Ozlug of troponin quantitativeGregrafal Montoya MD Work Phone: Start: 11-25-1565Oohlhkqcvo exam chest single view Aurelia Awilda Juana TECHNOLOGY SERVICES MANAGER Work Phone: Start: 33-57-4669Cuipo foot complete minimum 3 views Aurelia Awilda Juana TECHNOLOGY SERVICES MANAGER Work Phone: Start: 96-80-4114Rik-scan xtr veins complete bilateral studyKimberly Awilda Juana TECHNOLOGY SERVICES MANAGER Work Phone: Start: 91-77-0635Wjrel metabolic panel calcium total Aurelia Awilda [place] TECHNOLOGY SERVICES MANAGER Work Phone: Start: 86-88-5931N-reactive proteinKimberly Awilda Juana TECHNOLOGY SERVICES MANAGER Work Phone: Start: 79-15-7973YZZK TOPTriage Protocol Emergency MD Start: 33-80-3739ITRYZ BLUE TOPTriage Protocol Emergency MDStart: 11-03-2022 LIGHT GREEN TOPTriage Protocol Emergency MDStart: 90-24-1513PLIO TOPTriage Protocol Emergency MDStart: 89-78-3133Tml routine ecg w/least 12 lds trcg only w/o i&rKimberly Awilda Tillman TECHNOLOGY SERVICES MANAGER Work Phone: Start: 11-03-2022 End: 61-38-2233QDVCRUF DRAWTriage Protocol Emergency MDStart: 83-96-3446FJUDW CONTAINERTriage Protocol Emergency MDStart: 11-03-2022 End: 96-89-6410Hmkaa dip stick/tablet reagent auto microscopyKimbersue Tillman TECHNOLOGY SERVICES MANAGER Work Phone: Start: 89-52-3352Zlytg respiratry probe & rev trnscr 12- targetDalila Arreguin MD Work Phone: Start: 77-57-8581Utebwcfgwa exam chest single view Dalila Arreguin MD Work Phone: Start: 18-20-2143RLFAADJEUYFKTeovn D Baker MD Work Phone: Start: 10-30-2022 End: 17-11-0338Uysszzrmppf peptideDalila Arreguin MD Work Phone: Start: 20-49-8061DZR screeningDR RUGDANA ALDAComment on above:Performed By: #### PSAD #### [facility] [address] [place] [address] Dr. Benedict EdmondsonStart: 80-80-4826Kijtliffjb ([place]) doppler flow mapping of vein of upper limbMD Rugen [place] Work Phone: Start: 58-65-6295Mzcqnwoqgt peripheral vascular flow studyMD Rugen [place] Work Phone: Start: 58-08-0729Zeghonzsf aortogramMD Rugen [place] Work Phone: Start: 47-24-2846OZWU-CoV-2 (COVID-19) RNA [Presence] in Respiratory specimen by OREN with probe detectionCarson Brock MD Work Phone: Start: 14-34-4999Eim-invas physiologic std extremity art 2 levelJoshua Jim Calixto DO Work Phone: Start: 69-82-7094Unz abdl aorta&bi iliofem w/contrast&postpJoshua Jim Calixto DO Work Phone: Start: 83-24-8955Mahrf metabolic panel calcium total Mehnaz Fernandez Elmira Lamb PA-C Work Phone: Start: 34-22-2315XCPQ TOPTriage Protocol Emergency MD Start: 42-53-3911IVUPBLJL TOPTriage Protocol Emergency MDStart: 36-05-8371XQZHK GREEN TOPTriage Protocol Emergency MDStart: 13-05-7271HSHK GREEN TOPTriage Protocol Emergency MDStart: 55-70-3162LDZB TOPTriage Protocol Emergency MDStart: 90-64-2096AEGGOUZ DRAWTriage Protocol Emergency MDStart: 84-74-1190Wsfob count complete auto&auto difrntl wbcParvez Mak MD Work Phone: Start: 51-98-2787Esift metabolic panel calcium total Parvez Mak MD Work Phone: Start: 27-70-4076Qm thorax w/o contrast Radha Mak MD Work Phone: Start: 01-19-2022 End: 51-12-0400TfyrbycxzphvjboixJvapiceg Not In SystemStart: 31-20-6377Ptvey metabolic panel calcium totalZeesosmani Back DO Work Phone: Start: 96-42-4261Kex abdl aorta&bi iliofem w/contrast&postpZeeshan Arturo Back DO Work Phone: Start: 44-23-3608Qlr routine ecg w/least 12 lds w/i&r Mikey Mcguire MD Work Phone: Start: 01-18-2022 End: 84-71-9552Kgwpq ankle complete minimum 3 viewsSamanshannon Ojeda PA-C Work Phone: start: 01-18-2022 End: 73-99-7444Axljc metabolic panel calcium totalMehnaz Ku Adonis PA-C Work Phone: Start: 64-02-9374R-reactive proteinMehnaz Lamb PA-C Work Phone: Start: 46-81-7773Dhiloqo bacterial blood aerobic w/id isolatesMehnaz Garciage Lamb PA-C Work Phone: Start: 59-00-2918SHZP Jailyn Mcguire MD Work Phone: Start: 47-79-6166TLAFW BLUE Jailyn Mcguire MD Work Phone: Start: 37-53-1537CTFJS GREEN Jailyn Mcguire MD Work Phone: Start: 25-06-4751UTPVUU VENOUS BLOOD GASES AND PERFORM Mehnaz Garciage Lamb PA-C Work Phone: Start: 79-73-7220OALL Jailyn Mcguire MD Work Phone: Start: 93-24-3594NCZWTKW DRAWSteven Jagruti Mcgurie MD Work Phone: Start: 42-27-3730Tzu routine ecg w/least 12 lds w/i&r Plastic Sewer GenericStart: 86-01-1952Fnyqpna artery doppler assessmentGilman Commissioner Work Phone: Start: 37-58-4658Uqe-invas physiologic std extremity art 2 levelGilman Commissioner Work Phone: Start: 28-76-6061Kka abdl aorta&bi iliofem w/contrast&postpJoy Commissioner Work Phone: Start: 98-60-9765Dckyfgopzk [Mass/volume] in BloodGilman Commissioner Work Phone: Start: 83-13-0042Yqr-invas physiologic std extremity art 2 levelMohsen Sarabia Work Phone: Start: 56-15-3369Lsd-scan lxtr art/artl bpgs uni/lmtd studyMohsen Sarabia Work Phone: Start: 77-42-4710Eslbuif artery doppler assessmentMohsen Sarabia Work Phone: Start: 22-31-3327Qjk-invas physiologic std extremity art 2 levelMohsen Sarabia Work Phone: Start: 09-70-7097Kwd-scan lxtr art/artl bpgs uni/lmtd studyMohsen Sarabia Work Phone: Start: 93-72-7796Uln-invas physiologic std extremity art 2 [facility] hospitalMohsen Sarabia Work Phone: Start: 44-40-4963Kdtiauoofj [Mass/volume] in Serum or PlasmaHalle OrlinskiStart: 18-04-1110Rsfhmjdynm [Mass/volume] in Serum or Plasma Edwina WillettersonStart: 95-14-6010Qqoachfmnc [Mass/volume] in Serum or Plasma Edwina BrowneStart: 24-01-9457Xkbmpkjn blood count (hemogram) panel - Blood by Automated countStan Canseco Work Phone: Start: 72-95-0942Rhakdtsbgk [Mass/volume] in Serum or PlasmaHalle OrlinskiStart: 45-71-7860EfljipjxuqimyqxaeuwapiplftQfdfupk Gustavo Mikey Work Phone: Start: 57-69-8152Ttaqggcbq on tissue specimenMichael Gustavo Mikey Work Phone: Start: 93-42-0042Wksakdfhb of esophagusMichael Gustavofoster Jensen Work Phone: Start: 32-17-0042Nrjyekrmhd [Mass/volume] in Serum or PlasmaHalle OrlinskiStart: 13-92-3477Ahxldncpxm and Hematocrit panel - Blood Stan Canseco Work Phone: Start: 09-30-8802Pkfsrxyyhu [Mass/volume] in Serum or Plasma --troughElizabeth LakatosStart: 33-77-8933Ywwqgttzpu and Hematocrit panel - BloodStan Canseco Work Phone: Start: 47-86-8598Afuipfqsuz and Hematocrit panel - BloodStan Canseco Work Phone: Start: 21-75-4457Havwfgieep exam chest single view Stan Canseco Work Phone: Start: 71-29-9002Iumtb occult peroxidase actv qual other sourcesStan Canseco Work Phone: Start: 65-86-5392Uygtrioy blood count (hemogram) panel - Blood by Automated countDiasome Work Phone: Start: 75-10-7161Utkqy metabolic 2000 panel - Serum or PlasmaBrian Houng Work Phone: Start: 27-98-9416Vbidrlpinb [Mass/volume] in Serum or PlasmaHalle OrlinskiStart: 16-66-4286KwnxthykhfnpbmsjMrtr Rajiv Choi Work Phone: Start: 00-00-4297Msbropcriu examination foot 2 views Ofe Israel Work Phone: Start: 53-04-8234OCKXAX TITRATEBrcedrick Wood Work Phone: Start: 18-85-0851Kxwkuzbhd on tissue specimenFlynn Mann Work Phone: Start: 10-08-2018 End: 33-96-4627NEFJVOXINA TRANSMETATARSALBraranda Mann Work Phone: Start: 40-71-0128Oiifq metabolic 2000 panel - Serum or PlasmaBrian Houng Work Phone: Start: 02-30-9404Tocgnmth blood count (hemogram) panel - Blood by Automated countCloudVolumesian IdeaPaint Work Phone: start: 65-09-2042BDJ in Platelet poor plasma by Coagulation assayOfe Wood Work Phone: Start: 81-65-1031Xdusltwlfw [Mass/volume] in Serum or Plasma --troughHalle OrlinskiStart: 32-28-8231Ccjptafxtu [Mass/volume] in Serum or PlasmaHalle OrlinskiStart: 70-53-2354Grvteokr blood count (hemogram) panel - Blood by Automated countTyler R Elodia Work Phone: Start: 47-95-818561 lead ECGEric Rajiv Perez Work Phone: Start: 10-72-0278Aiejg metabolic 2000 panel - Serum or PlasmaTyler R Teshantanulliager Work Phone: Start: 35-21-8533K-ray of left footTyler R Elodia Work Phone: Start: 69-01-4881Zconfhok blood count with white cell differential, automatedTyler R Juan Daniellliager Work Phone: Start: 29-51-1952Qqrcycux blood count with white cell differential, manualTyler R Juan Daniellliager Work Phone: Start: 00-84-3168Uxllrkrpqel sedimentation rate by Westergren methodTyler R Juan Danielllpooja Work Phone: Start: 10-04-2018C reactive protein [Mass/volume] in Serum or PlasmaTyler R Tewilliager Work Phone: Start: 08-47-7231Sgjadqgcnhuku metabolic 2000 panel - Serum or PlasmaTyler R Tewilliager Work Phone: Start: 14-92-0078Irenhhuqzw A1c/Hemoglobin.total in BloodTyler R Teshantanulliager Work Phone: Start: 35-23-4686M-ray of left ankleBradley Beena Mann Work Phone: Start: 19-67-6748P-ray of left footBradley Beena Mann Work Phone: Start: 99-07-5297Edxfejlpwc and Hematocrit panel - BloodKrmarciano Franco Work Phone: Start: 16-76-8095Olarl metabolic 2000 panel - Serum or PlasmaNirvana B Saraswat Work Phone: Start: 23-77-0812Qdxrentz blood count (hemogram) panel - Blood by Automated countNirvana B Saraswat Work Phone: Start: 31-21-8475IGM in Platelet poor plasma by Coagulation assayNirvana B Clotildeaswat Work Phone: Start: 04-23-1551Ptwrpdyn blood count (hemogram) panel - Blood by Automated countNicole Keisha Durantidalhealth [facility] Work Phone: Start: 99-66-3402Acozl metabolic 2000 panel - Serum or PlasmaNirvana B Saraswat Work Phone: Start: 07-05-2780Mqrvisim blood count (hemogram) panel - Blood by Automated countNirvana B Saraswat Work Phone: Start: 60-13-5758QAF in Platelet poor plasma by Coagulation assayNirvana B Clotildeaswat Work Phone: Start: 07-03-4818Mjlvibuteh and Hematocrit panel - BloodKrmarciano Franco Work Phone: Start: 86-66-5918Sgknuz RBC preparationNirvana B Clotildeaswat Work Phone: Start: 87-65-1629Vsrqj type and Indirect antibody screen panel - BloodNirvana B Saraswat Work Phone: Start: 32-26-4899Dcpth metabolic 2000 panel - Serum or PlasmaNirvana B Saraswat Work Phone: Start: 51-50-8536Haupwlog blood count (hemogram) panel - Blood by Automated countNirvana Erin Ivorywat Work Phone: Start: 65-30-8105HQV in Platelet poor plasma by Coagulation assayNileena Cabat Work Phone: Start: 94-43-7030Gwexoukp blood count (hemogram) panel - Blood by Automated countNicole Keisha Reneeitinger Work Phone: Start: 92-10-0544HnffjmszafrjmlkrrKlsebppm Not In SystemStart: 64-81-7090Qga-invas physiologic std extremity art 2 levelDrew Hortensia Nicolkemal Work Phone: Start: 57-21-2279Okwov metabolic 2000 panel - Serum or PlasmaNileena Cabat Work Phone: Start: 67-60-7026Qnpwvprc blood count (hemogram) panel - Blood by Automated countKingarvdulce Rincon Work Phone: Start: 30-35-2525MXO in Platelet poor plasma by Coagulation assayMiryam Rincon Work Phone: Start: 66-75-3405Zeynbkxsnp and Hematocrit panel - BloodKristen Rebecca Franco Work Phone: Start: 46-43-2217Dpwxrvsobw and Hematocrit panel - BloodKristen Rebecca Franco Work Phone: Start: 70-57-2608Dmmjb metabolic 2000 panel - Serum or PlasmaNirvana B Dianelyswat Work Phone: Start: 97-96-6172Hvmaduok blood count (hemogram) panel - Blood by Automated countNirvana B Dianelyswat Work Phone: Start: 15-52-1264YGA in Platelet poor plasma by Coagulation assayNileena Cabat Work Phone: Start: 16-17-2237Tpcsy metabolic 2000 panel - Serum or PlasmaNirvana B Saraswat Work Phone: Start: 85-52-7033Cmagwbzh blood count (hemogram) panel - Blood by Automated countNirvana B Saraswat Work Phone: Start: 25-05-0071IQR in Platelet poor plasma by Coagulation assayNirvana B Dianelyswat Work Phone: Start: 45-47-5440LN OR ANG ADDScaleArc Work Phone: Start: 13-98-8315Drynjlmsmxx up to 1 hour physician/qhp timeScaleArc Work Phone: Start: 09-07-2018 End: 6482MHOSJJ PERONEAL FEMORALScaleArc Work Phone: Start: 98-54-7213SAAL - referenceKristen Rebeccahortensia Franco Work Phone: Start: 73-98-7969Sohxmncxvu exam chest single view Vianca Rebecca Franco Work Phone: Start: 51-36-2773ANKJ - referenceMichael Cherryland Work Phone: Start: 61-25-6334Qgtsm metabolic 2000 panel - Serum or PlasmaNirvana B Saraswat Work Phone: Start: 47-63-6997Eaeihjuw blood count (hemogram) panel - Blood by Automated countNirvana B Dianelyswat Work Phone: Start: 16-70-7823LTV in Platelet poor plasma by Coagulation assayNirvana B Dianelyswat Work Phone: Start: 49-69-8644ZMSX - referenceKristen Rebecca Franco Work Phone: Start: 70-01-0893Bjlpg group typingJoy Commissioner Work Phone: Start: 96-19-8636Ikvxfboh blood count (hemogram) panel - Blood by Automated countNicole Keisha Veitinger Work Phone: Start: 31-75-3996Shtzv type and Indirect antibody screen panel - BloodMiryam Rincon Work Phone: Start: 27-13-1665Pmy-scan xtr veins unilateral/limited studyDrromero Bazan Nicolkemal Work Phone: Start: 53-26-5044Cjdor metabolic 2000 panel - Serum or PlasmaMichael Cherryland Work Phone: Start: 91-44-2503Yckwwwgj blood count (hemogram) panel - Blood by Automated countMichael Cherryland Work Phone: Start: 77-03-2042Hkwrnqe catheterizationChelsdinorah Diaz Work Phone: Start: 77-46-282439 lead ECGChelsdinorah Diaz Work Phone: Start: 14-76-5665JZOV - referenceNicole Keisha Maria Antonia Work Phone: Start: 29-20-2298Feg-scan lxtr art/artl bpgs uni/lmtd studyChelsdinorah Diaz Work Phone: Start: 54-22-2648PZWM - referenceNicole Keisha Veitinger Work Phone: Start: 91-96-5014Mqjqj metabolic 2000 panel - Serum or PlasmaAmanda Triston Mckeon Work Phone: Start: 85-23-8844Lnkpiidf blood count (hemogram) panel - Blood by Automated countMirna Mckeon Work Phone: Start: 04-82-1425Hmtzpzsciysr imaging procedureNicole Keisha Veitinger Work Phone: Start: 62-05-2621tBLV in Blood by Coagulation assay Tiana Keisha Reneeitinger Work Phone: Start: 97-75-7228Agvgkbbr blood count (hemogram) panel - Blood by Automated countNicole Keisha Call Loop Work Phone: [phone]: 14-81-8349MJDC TOPNicole [employer] Work Phone: [phone]: 71-94-9398KGBKZ GREEN TOPNicole [employer] Work Phone: [phone]: 49-88-4656XSAX GREEN TOPNicole [employer] Work Phone: [phone]: 81-08-0128EJWQ TOPNicole [employer] Work Phone: [phone]: 76-41-4054WSIWLHO DRAWNicole [employer] Work Phone: [phone]: 32-96-260362 lead ECGNicole [employer] Work Phone: [phone]: 42-75-0973Xgzjlbtjsf, device (physical object) BRENNA MOSQUERA Start: 39-48-7052BgczigqamukxhNIISDKBA PERRY Start: 54-58-6682Utyxznbhpsb biopsy of prostate using ultrasound guidanceBRENNA MOSQUERA Amputation of left footBRENNA MOSQUERA Ankle SurgeryBRENNA ROTHRY Coronary artery bypass graftBRENNA ROTHRY History of amputation of foot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)Mikey Mcguire MD Work Phone: History of amputation of footAcquired absence of left foot (HCC)Zoë BROWER Work Phone: Placement of stent in cardiac conduitBRENNA MOSQUERA Comment on above:x7 Plan of Treatment DateCare ActivityDetailAuthorStart: 66-38-0305VHgZ/Tdap/Td vaccine (2 - Td or Tdap)DTaP/Tdap/Td vaccine (2 - Td or Tdap)WYANDOTStart: 27-10-9757Crtbwbe vaccinationOhioHealthStart: 10-14-2026Medicare Annual Wellness (AWV)Medicare Annual Wellness (AWV)[facility] HealthcareStart: 65-57-3376Rjdzlzaio [Moles/volume] in Serum or PlasmaPOTASSIUMOSU [facility] CenterStart: 90-51-5378Iqprbceosl screening using PHQ-9 (Patient Health Questionnaire 9) scoreDepression Screening/Follow-Up (PHQ-2/9)OhioHealthStart: 06-10-2025 End: 24-13-1444Tftog 1996 panel - Serum or PlasmaLipid panel Lab Routine Screening for lipid disorders Medicare annual wellness visit, subsequent Exp ected: 06/10/2025 (Approximate), Expires: 06/10/2026[facility] Work Phone: Comment on above:Expected: 06/10/2025 (Approximate), Expires: 06/10/2026Start: 06-10-2025 End: 37-78-0826Ufffvaw encounter procedureNOMS [place] Dickey MedinceComment on above:ArrivedStart: 05-20-2025 End: 77-89-1485Qoigkny encounter lxuwagmjv62/23/2025 1:00 PM EDT Office Visit [facility] [place] Dickey Nadya [address] [place] [address] Flash oLvelace MD [address] [place] [address] [facility] [place] [facility] CampusnceStart: 05-09-2025 [facility] CenterStart: 30-26-8356PcvhipbhhAvita Health System [facility] Hospital CenterStart: 86-07-8685WqaqniohjjasMqyvnvjdq [facility] CenterStart: 64-96-5900SyszzuhvdAvita Health System [facility] CenterStart: 70-39-6037YrtbbrblwAvita Health System [facility] CenterStart: 14-16-0333OiawmwvlkAvita Health System [facility] CenterStart: 75-38-8169Bqijfawx admissionDunlap Memorial Hospitaltart: 05-02-2025 [facility] CenterStart: 76-07-1289XdpicxdwhAvita Health System [facility] CenterStart: 26-34-8001Eejjrcmpvum Panel (PCR)Respiratory Panel (PCR)[facility] CenterStart: 05-02-2025 End: 63-37-8774Iukswoe encounter oxrwzgzgl75/05/2025 1:00 PM EDT Office Visit [facility] [place] [facility] [address] [facility] [address] [place] [address] Zoë King PA [address] [facility] [address] [place] [address] ArrivedNOMS [place] [facility] TattnallnceComment on above:ArrivedStart: 88-30-9282RMMSG-19 VACCINE ( season)COVID-19 VACCINE ( season)[facility] CenterStart: 42-60-2662Eywdzfypb vaccinationInfluenza Vaccine (#1)[facility]HealthStart: 08-30-2025Medicare Annual Wellness (AWV)Medicare Annual Wellness (AWV)[facility] HealthcareStart: 04-24-2025 End: 13-90-0169Cpybzas encounter azzauvipi09/28/2025 1:00 PM EDT Office Visit [facility] [address] [facility] [address] [place] [address] Emmanuel Gonzalez DPM [address] [facility] [address] [place] [address] N[facility] CI PODIATRYStart: 04-14-2025 End: 74-17-8442PL Foot - right WO contrastMR foot right wo IV contrast Imaging Routine Osteomyelitis of right foot, unspecified type (HCC) Expected: 04/14/2025, Expires: 04/14/2026[facility] Work Phone: Comment on above:Expected: 04/14/2025, Expires: 04/14/2026Start: 04-08-2025 End: 41-62-3969EJDOLNTBIVI WOUND (HTRX)SUPERFICIAL WOUND (HTRX) Lab Routine Ischemic toe ulcer, right, with 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) Expected: 04/08/2025 (Approximate), Expires: 04/08/2026[facility] Work Phone: Comment on above:Expected: 04/08/2025 (Approximate), Expires: 04/08/2026Start: 04-08-2025 End: 19-52-1333Vgkycih encounter uostkczkc32/12/2025 11:30 AM EDT Office Visit [facility] [place] [facility] [address] [facility] [address] [place] [phone] Zoë King PA [address] [facility] [address] [place] [address] ArrivedNOAL [place] Dickey [facility] CampusnceComment on above:ArrivedStart: 03-14-2025 End: 76-24-7651Vqxmddn encounter procedureRiCrystal Clinic Orthopedic Center Peripheral Vascular LabStart: 83-84-6767VvjtbjlnaDunlap Memorial Hospitaltart: 71-91-0744OtagnvoayDunlap Memorial Hospitaltart: 01-09-2025 End: 32-49-5523Poyzsdrp identified in Urine by CultureUrine culture (clean catch) Microbiology Routine Dysuria Expected: 01/09/2025 (Approximate), Expires: 01/09/2026[facility] HealthcareComment on above:Expected: 01/09/2025 (Approximate), Expires: 01/09/2026Start: 01-09-2025 End: 96-13-1994Isnimkto specific Ag [Mass/volume] in Serum or PlasmaPSA Lab Routine History of prostate cancer Expected: 01/09/2025 (Approximate), Expires: 01/09/2026[facility] Work Phone: Comment on above:Expected: 01/09/2025 (Approximate), Expires: 01/09/2026Start: 01-09-2025 End: 80-45-1393Cxkgsak encounter emiruplzi15/15/2025 10:30 AM EDT Office Visit [facility]IGID [facility] [address] [place] [phone] Bhaskar Wilson NP [address] [place] [address] ArrivedNOMS CI FMComment on above:ArrivedStart: 11-04-2024 End: 15-31-6667Lulnboa encounter ybgztgyuc40/10/2025 10:45 AM EDT Office Visit [facility] [address] [place] [address] Flash Lovelace MD [address] [place] [address] [facility] CI FMStart: 08-12-2024 End: 92-07-6343Empbiud encounter zifncuqdt68/16/2024 1:30 PM EST Office Visit [facility] [address] [place] [address] Flash Lovelace MD [address] [place] [address] [facility] CI FMStart: 07-29-2024 End: 25-52-3251Yjkbmza encounter dqfqdxdyg91/02/2024 10:00 AM EST Office Visit [facility] [address] [place] [address] Flash Lovelace MD [address] [place] [address] [facility] CI FMStart: 96-25-4250Mcjuwmz and physical examination, annual for health maintenanceHenrico [facility]' [facility] VisitOhioHealthStart: 10-10-2024Medicare Annual Wellness (AWV)Medicare Annual Wellness (AWV)[facility] HealthcareStart: 10-10-2024Medicare Wellness VisitMedicare Wellness VisitOhioHealthStart: 05-21-2024 End: 06-97-3150Ymerewp encounter jamnnvxvi44/24/2024 1:00 PM EDT Office Visit [facility] [address] [place] [address] Zoë King PA [address] [place] [address] ArrivedNOMS CI FMComment on above:ArrivedStart: 47-38-9992JNKTQ-19 Vaccine ( season)COVID-19 Vaccine ( season)FloridaHealthStart: 58-66-6297Vkjygposz vaccinationInfluenza Vaccine (#1) [facility] HealthcareStart: 04-26-2024 End: 19-94-9319Jlkwnzg encounter umwkvilmb65/30/2024 9:30 AM EDT Office Visit [facility] [address] [facility] [address] [place] [address] Zoë King PA [address] [facility] [address] [place] [address] ArrivedNOMS CI FMComment on above:ArrivedStart: 34-64-7138QznpaesxhDunlap Memorial Hospitaltart: 08-09-2023 End: 22-54-8084Oylwaki encounter procedureRiverside Cheondoism Cardiac Non- Invasive LabStart: 07-13-2023 End: 90-60-0953Nanbwxg encounter zsluzrmup68/16/2023 Office Visit Orthopaedics Scar Ortega, LEVEL DESIGNER-TECHNOLOGY SERVICES MANAGER [address] [facility] [place] [address] [facility] OrthopedicsStart: 05-16-2023 End: 91-46-7844Xbxyrxlhsa ankle / brachial indices extremity completeUltrasound ankle / brachial indices extremity complete Vascular Ultrasound Routine PAD (peripheral artery disease) ([facility]) Expected: 05/16/2023, Expires: 07/15/2024 [facility] Work Phone: Comment on above:Expected: 05/16/2023, Expires: 07/15/2024Start: 05-16-2023 End: 95-36-2133PH Duplex Bypass Graft Left LEUS Duplex Bypass Graft Left LE Vascular Ultrasound Routine PAD (peripheral artery disease) ([facility]) Expected: 05/16/2023, Expires: 11/18/2024OhioHealthComment on above:Expected: 05/16/2023, Expires: 07/15/2024Start: 80-11-4567ALMMR-19 Vaccine ( season)COVID- 19 Vaccine ( season)OhioHealthStart: 80-60-9119BMGBV-19 VACCINE ( season)COVID-19 VACCINE ( season)[facility] Centertart: 34-60-5330Ukzduxwst vaccinationSequential Influenza Vaccine (#1)OhioHealthStart: 09-73-5838Atrxel Wellness Visit (AWV)Annual Wellness Visit (AWV)[facility]Start: 07-14-2022 End: 63-80-1363Pxjriwj encounter wgetqzgbg43/17/2022 Office Visit Orthopaedics Scar Ortega, LEVEL DESIGNER-TECHNOLOGY SERVICES MANAGER [address] [place] [address] [facility] OrthopedicsStart: 05-25-2022 End: 30-35-8187Nsxpodb artery doppler assessmentCarotid Duplex Vascular Ultrasound Routine Bilateral carotid artery stenosis Expected: 05/25/2022, E xpires: 07/25/2023[facility] Work Phone: Comment on above:Expected: 05/25/2022, Expires: 07/25/2023Start: 05-23-2022 End: 59-16-8205Gzocgdl encounter vikgrmond51/26/2022 Office Visit Pulmonology Angela Guerra MD [address] [place], [place] [address]arleth Best [address] [address] [facility] Pulmonary PhysiciansStart: 05-11-2022 End: 23-29-0871WL of chest without contrastCT Chest Without Contrast Imaging Routine Pulmonary nodule Expected: 05/11/2022, Expires: 02/25/2023[facility] Work Phone: Comment on above:Expected: 05/11/2022, Expires: 02/25/2023Start: 05-11-2022 End: 69-73-3967Qdokclq encounter qojmyodzm59/14/2022 Appointment Radiology Angela Guerra MD [address] [place], [place] [address]arleth Lopez [address] [place] [address] [facility] CT ScanStart: 43-36-0150Ztbzsaxoa vaccinationSequential Influenza Vaccine (#1)OhioHealthStart: 21-10-3316WvxcllqcwMount Carmel Health System Work Phone: Start: 01-19-2022 End: 92-46-1188Kiipgjm encounter procedureRiCrystal Clinic Orthopedic Center Peripheral Vascular LabStart: 01-12-2022 End: 44-28-3994Emxvurx encounter mjimgztga81/18/2022 Office Visit Orthopaedics Dashawn Silvestre MD [address] [place] [address] [facility] OrthopedicsStart: 11-29-2021 End: 86-30-9040idtlmjbevc25/04/2022 Rehab Services Visit Physical Therapy Dashawn Silvestre MD [address] [place] [address] Andree Cronin, PT [address] [facility]caren[facility] [place], [place] [address] BucyrusStart: 26-92-6216FVWQQ-19 Vaccine (4 - Booster for Moderna series)COVID-19 Vaccine (4 - Booster for Moderna series)[facility] Start: 45-66-4213HZPFO-19 Vaccine (4 - Moderna series)COVID-19 Vaccine (4 - Moderna series)OhioHealthStart: 86-57-3909Dphnaep and physical examination, annual for health maintenanceHenrico [facility]' [facility] VisitOhioHealthStart: 82-21-4061Gjhmhdgyz vaccinationSequential Influenza Vaccine (#1)OhioHealthStart: 04-06-2021 End: 17-96-8890Wvgohfa artery doppler assessmentCarotid Duplex Vascular Ultrasound Routine Bilateral carotid artery stenosis Expected: 04/06/2021, E xpires: 2OhioHealthComment on above:Expected: 04/06/2021, Expires: 06/06/2022tart: 04-06-2021 End: 63-63-5221Rwpfscrqvt ankle / brachial indices extremity completeUltrasound ankle / brachial indices extremity complete Vascular Ultrasound Routine PAD (peripheral artery disease) ([facility]) Expected: 04/06/2021, Expires: 06/06/2022 OhioHealthComment on above:Expected: 04/06/2021, Expires: 06/06/2022tart: 04-06-2021 End: 29-64-8197Kxfqbispxu duplex arterial leg leftUltrasound duplex arterial leg left Vascular Ultrasound Routine PAD (peripheral artery disease) ([facility]) Expected: 04/06/2021, Expires: 06/06/2022hioHealthComment on above:Expected: 04/06/2021, Expires: 06/06/2022tart: 22-26-1445VUZBF-19 VACCINE (3 - Booster for Moderna series)COVID-19 VACCINE (3 - Booster for Moderna series)[facility] SystemStart: 49-70-0224SJUWN-19 Vaccine (3 - Booster for Moderna series)COVID- 19 Vaccine (3 - Booster for Moderna series)OhioHealthStart: 56-73-8637Autkhrc and physical examination, annual for [facility] VisitAkioHealth Start: 72-08-0607Udyhtcfpm vaccination givenSequential Influenza Vaccine (#1) OhioHealthStart: 10-21-2019 End: 44-09-4008Oiiimnfxhin16/24/2020 Appointment Radiology Mohsen Sarabia MD [address] [facility] [address] [address] [phone] [facility] CTStart: 18-28-0451Xubqxzfvw vaccination given SEQUENTIAL INFLUENZA VACCINE (#1)OhioHealthStart: 03-18-2019 End: 80-52-8866Lbgowkozigj33/22/2019 Appointment Cardiology Mohsen Sarabia MD [address] [address] [phone] [facility] Peripheral Vascular LabStart: 11-01-2018 End: 92-47-1548AwpkrasdvqlSkftpmqiv [facility] LabStart: 10-31-2018 End: 01-50-2019TljzguzcvxcTdkzzxszs [facility] LabStart: 10-25-2018 End: 07-46-9631Ilgbtc Visit10/25/2018 Office Visit Wound Care Flynn Mann DPM [address] [place], [place] [phone] [facility] Wound CareStart: 10-10-2018 End: 31-77-4220Exlrhs-Up10/10/2018 Follow-Up Cardiothoracic Surgery Mohsen Sarabia MD [address] [address] [phone] [facility] Vascular SurgeonsStart: 10-04-2018 End: 04-67-4260Scubql Visit10/04/2018 Office Visit Wound Care Flynn Mann DPM [address] [place], [place] [phone] [facility] Wound CareStart: 10-03-2018 End: 96-38-9054Baxhlp-Up10/03/2018 Follow-Up Cardiothoracic Surgery Mohsen Sarabia MD [address] [address] [phone] [facility] Vascular SurgeonsStart: 09-20-2018 End: 20-86-7923Aeutjy Visit09/20/2018 Office Visit Wound Care Flynn Mann DPM [address] [place], [place] [phone] [facility] Wound CareStart: 12-77-1567Onfjtofdc vaccination givenSEQUENTIAL INFLUENZA VACCINE (#1)OhioHealthStart: 05-18-2016 Pneumococcal vaccinationPNEUMOCOCCAL VACCINE AGE 65+ (2 of 2 - PPSV23)[facility] Start: 56-12-6969Bdtniwczrppz Vaccine: Age 50+ (2 of 2 - PPSV23)Pneumococcal Vaccine: Age 50+ (2 of 2 - PPSV23)OhioHealthStart: 10-39-8529Bfahoxudvmtv Vaccine: Age 50+ (2 of 2 - PPSV23, PCV20, or PCV21)Pneumococcal Vaccine: Age 50+ (2 of 2 - PPSV23, PCV20, or PCV21)OhioHealthStart: 66-84-3215Rygamddynaeu Vaccine: Age 65+ (1 of 2 - PPSV23)Pneumococcal Vaccine: Age 65+ (1 of 2 - PPSV23)[facility]HealthStart: 02-47-0643Kgtaogmxsciq Vaccine: Age 65+ (2 - PPSV23 or PCV20)Pneumococcal Vaccine: Age 65+ (2 - PPSV23 or PCV20)[facility]HealthStart: 74-97-1543Fvruhzhhmowr Vaccine: Age 65+ (2 of 2 - PPSV23 or PCV20)Pneumococcal Vaccine: Age 65+ (2 of 2 - PPSV23 or PCV20)[facility]HealthStart: 07-13-2015 Pneumococcal Vaccine: Age 65+ (2 of 2 - PPSV23)Pneumococcal Vaccine: Age 65+ (2 of 2 - PPSV23)[facility]HealthStart: 13-45-9317Hpbyhhybbqn Syncytial Virus Immunization: Risk, 60-74 Risk, or 75+ (1 - 1-dose 75+ series) Respiratory Syncytial Virus Immunization: Risk, 60-74 Risk, or 75+ (1 - 1-dose 75+ series)[facility]HealthStart: 90-79-3369FFX VACCINE (1 - 1-dose 75+ series)RSV VACCINE (1 - 1-dose 75+ series)[facility] Hospitaltart: 14-74-5226Ybus risk assessmentOhioHealthStart: 22-03-3176Elbawakepgml vaccinationAdams County Hospital SystemStart: 14-31-0159Opvzattepsruxe of herpes zoster vaccineZOSTER VACCINES (1 of 2)[facility]HealthStart: 09-36-9328Fkrlxcpo vaccine (1 of 2)Shingles vaccine (1 of 2)W[facility]ANDOTStart: 58-95-2645Kvsasw vaccine hzv live for subcutaneous useZOSTER (SHINGLES) VACCINE (1 of 2)[facility] Centertart: 68-19-6517CbkshlgwgzyESNZDJXVFK CANCER SCREENING DISCUSSIONTrihealth [facility] Start: 12-87-2802Aiaazhtno for malignant neoplasm of colonCOLORECTAL CANCER SCREENING DISCUSSIONSamaritan North Health Centertart: 35-47-6842Zxghm diphtheria, tetanus and acellular pertussis (DTaP) vaccinationTDAP (ADULT)[facility] Centertart: 12-10-0959Hxaibev vaccinationTETANUSAMercy Health Tiffin Hospitaltart: 17-22-1695Xjpazaawei depression screening assessmentDepression Screening (PHQ9) [facility] InstituteStart: 90-05-5269UHWLB-19 Vaccine (1)COVID-19 Vaccine (1)[facility] Start: 34-75-5297Lcycpeweqp ScreenDepression ScreenWYANDOTStart: 1952 Depression screening using PHQ-9 (Patient Health Questionnaire 9) score [facility] HospitalStart: 63-82-9042Qxhnr panelLipidsWYANDOTStart: 78-97-5044Ohlegodtnwkt vaccinationPNEUMOCOCCAL VACCINE SERIES (1 - PCV)[facility] Centertart: 01-53-9594Toldper and physical examination, annual for health maintenance Wellness VisitOhioHealthStart: 43-99-5278TSSPB-19 VACCINE (#1)COVID-19 VACCINE (#1)[facility] Centertart: 55-94-3150Efue risk assessmentFalls Risk AssessmentOhioHealthStart: 35-17-2270Whrgdjw vaccinationOhioHealthBacteria identified in Blood by CultureBlood Culture Aerobic/Anaerobic Microbiology Routine 01/18/2022 9:05 PM EDTOhioHealth Work Phone: End: 95-49-6023DP of chest without contrastCT Chest Without Contrast Imaging Routine Community acquired pneumonia of left lower lobe of lung 1Occurrences starting 11/08/2022 until 01/08/2023[facility] Work Phone: Comment on above:1 Occurrences starting 11/08/2022 until 01/08/2023Iron binding capacity [Mass/volume] in Serum or PlasmaTrinity Health SystemPatient EducationAvita Health System [facility] Work Phone: Patient referralAvita Health [facility] Work Phone: Respiratory pathogens DNA and RNA panel - Nasopharynx by OREN with non-probe detectionTrinity Health SystemReticulocytes [#/volume] in [facility] HospitalReticulocytes/100 erythrocytes in [facility] HospitalTransfusion of red blood cellsTransfuse RBC STAT 09/11/2018 6:52 PM ESTOhioHealth End: 19-76-4994TsvjdbzljsvoqthNRTH ANKLE BRACHIAL INDEX Imaging Routine One Time for 1 Occurrences starting 05/10/2025 until 05/10/2025[facility] Work Phone: Comment on above:One Time for 1 Occurrences starting 05/10/2025 until 05/10/2025 End: 62-49-2205A-ray of left ankleXR Ankle Left 3+ Views (Standard) Routine Critical lower limb ischemia 1 Occurrences starting 09/20/2018 until 09/20/2019 [facility]HealthComment on above:1 Occurrences starting 09/20/2018 until 09/20/2019X- ray of left ankleXR Ankle Left 3+ Views (Standard) Routine Critical lower limb ischemia 09/20/2018 3:30 PM ESTOhioHealth End: 49-05-5516E-ray of left footXR Foot Left 3+ Views (Standard) Routine Critical lower limb ischemia 1 Occurrences starting 09/20/2018 until 09/20/2019 OhioHealthComment on above:1 Occurrences starting 09/20/2018 until 09/20/2019X- ray of left footXR Foot Left 3+ Views (Standard) Routine Critical lower limb ischemia 09/20/2018 3:29 PM ESTOhioHealthXR Pelvis and Hip - right ViewsXR HIP WITH PELVIS RIGHT Imaging Routine Pain in prosthetic joint, subsequent encounter 11/24/2021 9:21 AM EDTASimplesurance Health SystemXR Pelvis and Hip - right ViewsXR HIP WITH PELVIS RIGHT Imaging Routine Hx of total hip arthroplasty, right 01/12/2022 8:59 AM EDTAAVM Biotechnologyta Health SystemXR Pelvis and Hip - right ViewsXR HIP WITH PELVIS RIGHT Imaging Routine Hx of total hip arthroplasty, right 07/14/2022 10:44 [facility] - right ViewsXR HIP WITH PELVIS RIGHT Imaging Routine Hx of total hip arthroplasty, right 08/10/2023 10:49 AM [facility] Immunizations Immunization DateImmunizationNotesCare ZsriccpaSpmazwri92-76-6396bnscruynv, high dose seasonal, preservative-freeFlash Lovelace MD Work Phone: NOEllett Memorial HospitalRbnmhqcohs62-57-3872Wsmggfdcp, High-dose Seasonal, Quadrivalent, Preservative FreeFlash Lovelace MD Work Phone: NOEllett Memorial HospitalAusoekgdnc65-36-8480ejythhnzq virus vaccine, unspecified formulationLudivina Garcia VFKegsKfeubn64-54-1160tlnjzxzcz virus vaccine, unspecified formulationJENNIFER JAY [facility]10-10-2023Influenza, High-dose Seasonal, Quadrivalent, Preservative Free Zoë Hemmer PA Work Phone: [facility] HospitalNfufgmhtkb48-44-6408sxflfqent virus vaccine, unspecified formulationJENNIFER JAY [facility]10-04-2022Influenza, High-dose Seasonal, Quadrivalent, Preservative Free Zoë Hemmer PA Work Phone: [facility] HospitalCkwiharoma09-98-3629WHID-EhX-5 (COVID-19) mRNA 1273 vaccineJENNIFER JAY [facility]10-25-2021influenza virus vaccine, unspecified formulationJENNIFER JAY [facility]10-25-2021influenza, high dose seasonal, preservative-freeKaren Hemmer PA Work Phone: [facility] HospitalSyfotogjhc34-49-1372SDEA-TjK-7 (COVID-19) mRNA- 1273 vaccineJENNIFER JAY [facility]02-11-2021pneumococcal polysaccharide vaccine, 23 valentJENNIFER JAY [facility]02-03-2021SARS-CoV-2 (COVID-19) mRNA-5763 vaccineJENNIFER JAY [facility] CenterComment on above:Result Comment: 2023-12-26: DFS5888-93-3557lxfnloqdj virus vaccine, unspecified formulationJENNIFER JAY [facility]10-06-2020influenza, high dose seasonal, preservative-freeTucson Medical Centeren Hemmer PA Work Phone: [facility] HospitalMhptqubqqz45-07-6614dfpptuyol virus vaccine, unspecified formulationJENNIFER JAY [facility]10-01-2020influenza, seasonal, injectableKaren Hemmer PA Work Phone: [facility] HospitalGpbknxndrb82-19-0525jobbmjtohndz conjugate vaccine, 13 valentJENNIFER JAY [facility]02-03-2020tetanus toxoid, reduced diphtheria toxoid, and acellular pertussis vaccine, adsorbedJENNIFER JAY [facility]10-22-2019influenza virus vaccine, unspecified formulationJENNIFER JAY [facility]10-22-2019Seasonal trivalent influenza vaccine, adjuvanted, preservative freeKettering HealthQlzxgsWypuOvhguj78-15-1139ecqegaazr virus vaccine, unspecified formulationJENNIFER JAY [facility]10-10-2018influenza, high dose seasonal, preservative-freeMansfield HospitalEkmqKztnig16-55-9946Hdwgdktbw, High-dose Seasonal, Quadrivalent, Preservative FreeZoë BROWER Work Phone: [facility] HospitalKxpdiodako24-54-9018lhdtslksn virus vaccine, unspecified formulationJENNCHRIS JAY [facility]09-25-2017influenza, injectable, quadrivalent, contains preservativeKettering HealthVbnpqdJyjhYjkwas78-49-4600hkxqleojm, injectable, quadrivalent, preservative free Zoë BROWER Work Phone: [facility] HospitalBkmxoqgyuz46-13-7538dkacwjodz virus vaccine, unspecified formulationJENNIFER JAY [facility]09-21-2015influenza, high dose seasonal, preservative-freeMansfield HospitalTkliOnazdk88-04-7020pnobyfahnhrk conjugate vaccine, 13 valentJoy Cornell Fostoria City Hospitalpneumococcal vaccine, unspecified formulationMohsen Sarabia MD Work Phone: [facility] Institutepneumococcal vaccine, unspecified formulationUri Voss DO Work Phone: [facility] Payers DatePayer CategoryPayerPolicy [id number] 2024Self-pay [id number] Health [id number] 2018MedicareHUMANA MANAGED MEDICARE HUMANA MCR ADVANTAGE CHOICE PPO xxxxxxxxx 2017-Presentxxxxxxxxx [id number] 2018MedicareHUMANA MANAGED MEDICARE HUMANA MCR ADVANTAGE CHOICE PPO [id number] 2017-[id number] 2018Medicare [id number] 2018Medicare (Managed Care) [id number] 2018Medicare PPO [id number] [id number] 2.0.1.869078.3.579.[id number] 2.0.1.751186.3.579.2.[id number] 2.0.1.977101.3.579.2.23155-20-4999Rnhpkpf88891226 2.840.1.323373.3.579.2.36337-30-2185Mwdachc0865558 2.0.1.032404.3.579.2.25570-79-5005Evoievp0097941 2.16840.1.204796.3.579.2.81289-62-1049Elahvyq3485846 2.16840.1.841977.3.579.2.58470-14-0634Wenalml1346667 2.16840.1.468083.3.579.2.96971-74-2923Trcjyih65299983 2.160.1.664224.3.579.2.76558-98-3812Omuofss44856196 2.16.840.1.941316.3.579.2.94376-92-4312Magfiyp86590293 2.16.840.1.929876.3.579.2.00179-40-3259Fepahrt97174524 2.16.840.1.489238.3.579.2.60190-20-2416Ohlxqhv584847952 2.16.840.1.086611.3.579.2.67645-42-2081Xzslmdt328296980 2.16.840.1.473705.3.579.2.64061-31-1050Ggcguji220577054 2.16.840.1.977005.3.579.2.31514-28-8393Glbfxev965615668 2.16.840.1.965343.3.579.2.68811-53-5356Cowjdma049305675 2.16.840.1.840856.3.579.2.26127-95-0770Enzkhpw227740808 2.16.840.1.877431.3.579.2.70812-58-1129Bmwrnuc527729413 2.16.840.1.913936.3.579.2.26025-77-7641Bewqvdl721215329 2.16.840.1.880999.3.579.2.09994-77-8987Qssmwea718481652 2.16.840.1.708968.3.579.2.53131-94-0836Cvgkkbc075662886 2.16.840.1.679649.3.579.2.48484-50-3799Vybxgrl722155862 2.16.840.1.282496.3.579.2.45647-43-5866Zdgrfta72647739 2.16.840.1.326414.3.579.2.665724-98-4387Aunzjjn93125946 2..0.1.561352.3.579.2.480890-23-1116Fonqnwk59376880 2.16.0.1.739991.3.579.2.190274-89-7320Gtpjdrn07040103 2.0.1.690933.3.579.2.568587-69-6330Ativsqp25905500 2.0.1.238581.3.579.2.696414-66-4048Npncoof52942104 2.0.1.235013.3.579.2.319505-84-5544Hwcpjyp04661365 2.0.1.780954.3.579.2.901421-73-6371Dgtbmqi8255894 2.0.1.431917.3.579.2.501209-89-7709Xqbkpmu5234356 2.0.1.832834.3.579.2.334217-62-0650Deoymls8482616 2.0.1.019357.3.579.2.1259UnknownHCAP/HFA/FAP YcivhqK093602 9229772i-5de1-83n0-u95z-9t57we8wv6j7Dawaasm21191286 2.0.1.518437.3.579.2.784Nbjkdav86694754 2.0.1.197277.3.579.2.531 Asrxvct92688515 2.840.1.634812.3.579.2.284Hcmqxoa43084940 2.0.1.406184.3.579.2.531 Social History DateTypeDetailFacilityStart: 09-10-2018 End: 30-78-3068Ikywftt smoking status NHISNever smokerSamaritan North Health Centertart: 11-00-4541Qik Assigned At BirthNot on fileOhioHealthStart: 10-09-2019 End: 75-79-0983Wwihfbx intakeEx-drinker (finding)OhioHealthStart: 10-21-2019 End: 36-96-6153Ovebrvy use and exposureNever usedOhioHealthStart: 11-24-2021 End: 45-43-4647Vpahant intakeCurrent non-drinker of alcohol (finding)[facility] Centertart: 12-11-2021 End: 36-17-7964Ovcknvjm to SARS-CoV-2 (event)Not sureOhioHealthStart: 09-04-2018 End: 70-92-0439Gzogzmied pack-yearsOhioHealthStart: 11-30-2022 End: 73-42-4804Fuf [facility]art: 92-62-6498Fob Assigned At [facility] Hospitaltart: 19-71-7135Gmqtpba smoking statusNeverOhioHealth Shelby Hospitaltart: 67-86-7524Ouwcxd identityIdentifies as male gender (finding)OhioHealthStart: 03-05-2095Newbqd orientationHeterosexual (finding)OhioHealthStart: 04-15-2023 Alcohol CommentCoffee 1-2 cups per dayNOMS HealthcareWithin the last year, have you been afraid of your partner or ex-partner?NoNOMS HealthcareHow often to you have a drink containing alcohol?NeverNOMS HealthcareDo you feel stress - tense, restless, nervous, or anxious, or unable to sleep at night because yourmind is troubled all the time - these days [OSQ]Not at allNOMS Healthcare(I/We) worried whether (my/our) food would run out before (I/we) got money to buy more.Never trueNOMS HealthcareTobacco smoking status NHISTobacco smoking consumption unknownWYANDOT Work Phone: start: 66-08-0507Oryaczg SDOH Alcohol Frequency1 [facility] Work Phone: start: 19-03-0661Plagwvx SDOH Alcohol Std Drinks0 [facility] Work Phone: How often do you need to have someone help you when you read instructions, pamphlets, or other written material from your doctor or pharmacy [SILS][facility] HealthStart: 14-06-5952LgdQhqo (finding)[facility] Hospitaltart: 05-06-2025 End: 80-79-5205UESM Follow upSDOH Follow upMount Carmel Health System Work Phone: Medical Equipment Procedure CodeEquipment CodeEquipment Original TextEquipment IdentifierDates Hemostat 2 X 4in Surgicel Fibrillar - [id number]: 03-61-0133Vbioilrk 2 X 4in Surgicel Fibrillar - [id number]: 50-73-6806Tyxyawbj 2 X 4in Surgicel Fibrillar - [id number]: 49-91-3218Tkqyckey 2 X 4in Surgicel Fibrillar - [id number]: 68-61-6901Hdtptdka 2 X 4in Surgicel Fibrillar - [id number] Start: 28-35-8694Nirdrfji 2 X 4in Surgicel Fibrillar - [id number]: 28-13-9698Fkbecjuc 2 X 4in Surgicel Fibrillar - [id number]: 09-07-2018 Hemostat 2 X 4in Surgicel Fibrillar - [id number]: 70-39-9952Rdoumumr 2 X 4in Surgicel Fibrillar - [id number]: 14-65-5667Ahqrqyqk 2 X 4in Surgicel Fibrillar - [id number]: 57-61-1884Lfuwlrop 2 X 4in Surgicel Fibrillar - [id number]: 51-98-7765Qsxxljjr 2 X 4in Surgicel Fibrillar - [id number] Start: 66-07-7541Nfihsuma 2 X 4in Surgicel Fibrillar - [id number]: 16-90-5325Zccrashh 2 X 4in Surgicel Fibrillar - [id number]_ucuAhjnq: 10-08-4461Sgmroflx 2 X 4in Surgicel Fibrillar - [id number]: 09-07-2018 Hemostat 2 X 4in Surgicel Fibrillar - [id number]: 69-95-3246Unmqwslx 2 X 4in Surgicel Fibrillar - [id number]: 85-31-8614Ovderrci 2 X 4in Surgicel Fibrillar - [id number]: 11-49-7452Eszgyfnd Altrx Polyethylene Acetabular Liner Neutral 36mm Id 62mm [id number]_xjqSkqmw: 79-05-4589Pdyvi-Seal 6f Vip - [id number]()[id number]()[id number]([id number], [id number]_imp FDAStart: 52-21-6918Mqillpk Lv 1x40 Single - [id number]_oehOdxgs: 68-13-6693Ptwwumpz 2 X 4in Surgicel Fibrillar - [id number]_tlnPqntv: 53-36-9697Dpkqnsu 10ml Hemostatic Matrix Fast Prep Floseal W/Recothrom - [id number] ()[id number]()[id number](10)[id number], [id number]_imp FDAStart: 03-17-2025 Nassawadox Gription Acetabular Shell Sector 62mm [id number]_efnQierf: 07-15-2021 Biolox Delta Ceramic Femoral Head +1.5 36mm Jaki 08/10 Gqles737658_hbjLbojg: 71-70-0513Tlbloy Femoral Stem 08/10 Taper Size 7 Mi 133mm920454_impStart: 33-34-8005Ovzivauicxapz Stem Centralizer 12.0mm Uqdnejux298758_wgaIuqho: 90-80-2806Cqlhr Flex 1k914a720 - [id number] ()[id number]()[id number](10)[id number], 559778_imp FDAStart: 65-87-9783Dxrar Flex 4g893c735 - [id number]()[id number]()[id number](10)[id number], 559780_imp FDA Start: 38-15-0055Kxmabwy R 1 X 40 Us - [id number]_dhkUjxyv: 07-15-2021 Goals DatePatient GoalDesired Activity/StateComment on above: Short-Term: 1. The pt to report compliance [...] to enable pt to perform all daily activitieswithout difficulty or compensation. 5. The pt to ambulate all distances without antalgic deviations or compensations to promote return to PLOF. Functional Status GxohPsjkiwcuurHhgfvuPihhbabr16-00-4662Wjcltqs Health Questionnaire 2 item (PHQ- 2) [Reported][facility] HospitalWjefiecimv70-90-0832Xasxkgu Health Questionnaire 2 item (PHQ- 2) [Reported][facility] HospitalMnswheyqyr33-43-2654Yrj you deaf, or do you have serious difficulty hearingNo 05/09/2025 11:00 AM EDT Lexi [facility]2025Are you blind, or do you have serious difficulty seeing, even when wearing glassesNo 05/09/2025 11:00 AM Lexi Beverly RN [facility]09-12-2025Do you have serious difficulty walking or climbing stairsNo 05/09/2025 11:00 AM Leix Beverly RN [facility]09-12-2025Do you have difficulty dressing or bathingNo 05/09/2025 11:00 AM Lexi [facility]-2025 Because of a physical, mental, or emotional condition, do you have difficulty doing errands alone such as visiting a physician's office or shoppingNo 05/09/2025 11:00 AM Lexi [facility] 64-75-9747Fbomsperxd statusPatient at BaselineMount Carmel Health System Work Phone: [phone]sqsn Health Questionnaire 2 item (PHQ-2) [Reported][facility] HospitalBgxdacxnfm01-58-4940Fhgdsbb Health Questionnaire 2 item (PHQ-2) [Reported][facility] HospitalFhvfjjqdvi11-03-6405Yqcljwn Health Questionnaire 2 item (PHQ-2) [Reported][facility] HospitalEwzzrrthhx20-93-4650Jexqezs Health Questionnaire 2 item (PHQ-2) [Reported][facility] HospitalTxjqjhldhu84-64-2381Wwcbsuz Health Questionnaire 2 item (PHQ-2) [Reported][facility] HospitalVggugrbksg88-95-1402Qhvmoeeers StatusN/AExec[facility] of [facility]04-25-2023Functional StatusN/AExec[facility] Mental Status TdbvXuhilzugowPfemqoNfskpyto71-54-9687Ibjkbbw of a physical, mental, or emotional condition, do you have serious difficulty concentrating, remembering, or making decisionsNo 05/09/2025 11:00 AM EDT Lexi Renee, VAN [facility]09-05-2025Cognitive functionCognitive Status Patient at BaselineMount [facility]el [facility] Work Phone: Clinical Notes 11-24-2021 to 06-10-2025 Note Date & EsotWsrcHvqvhdvj62-17-5553 History of Present illness Narrative* Flash Lovelace MD - 06/10/2025 10:30 AM EDT Images from the original note were not included. Subjective : Chief Complaint: Tristin Powell is an 85 y.o. male here for [...] (Tessalon) 100 MG capsule Three times daily Owdrujr-Bjobfzollhl-Jklakrimce (Breztri Aerosphere) 160-9-4.8 MCG/ACT aerosol Inhale 1 [...] Medicine) Flash Lovelace MD as PCP - Fannie Saab LPN [...] Do you have a medical power of process improvement specialist?: Yes Objective : BP 132/68 Pulse 84 Ht 6' 2 Wt 243 lb SpO2 94% BMI 31.20 kg/m No results found. Physical Exam Vitals reviewed. [...] Orders Flu vaccine, high dose seasonal, PF (KFH813) (Fluzone High Dose) (Completed) Orders Placed This Encounter Procedures Flu vaccine, high dose seasonal, PF (DSV210) (Fluzone High Dose) Lipid panel Standing Status: Future Number of Occurrences: 1 Expected Date: 06/10/2025 Expiration Date: 06/10/2026 Electronically signed by Flash Lovelace MD on June 10, 2025 * Flash Lovelace MD - 06/10/2025 10:26 AM EDTAssociated Problem(s): [...] this patient. * Flash Lovelace MD - 06/10/2025 10:25 AM EDTAssociated Problem(s): [...] to screen for Anuerysm documented in this encounterWright Memorial HospitalGylvnypekk35-00-2809 Telephone encounter Note* Telephone Encounter - Megan Douglass - 05/29/2025 10:32 AM EDT Patient called and left a message stating that he needs his pain medication called into the pharmacy - specifically he said the 5-325 but I'm not seeing that on his med list. Please advise [facility] HospitalCfwjvmaqid78-32-4736 Miscellaneous Notes* Telephone Encounter - Megan Douglass - 05/29/2025 10:32 AM EDT Patient called and left a message stating that he needs his pain medication called into the pharmacy - specifically he said the 5-325 but I'm not seeing that on his med list. Please advise documented in this encounterWright Memorial HospitalTykvaouoyv63-86-3326 History of Present illness Narrative* Elaine Saab LPN - 05/26/2025 3:11 PM EDT Spoke with pt for weekly monitoring. Pt sates he finished steroid 05/25 and still has cough and still feels like it is in his chest. Pt asks if PCP will start him on another antibiotic. He shares he had culture done is hospital to determine which antibiotic was needed to fight infection, but never found out the results. Per pts discharge it appears culture had been positive for pneumococcus, however last culture appears to have been negative and thats is why they ordered no further antibiotics after discharge. I let pt know I will message PCP to see if he recommends any medications. Pt deniesany further needs or concerns at this time. documented in this encounterWright Memorial HospitalWfovhppkji40-77-4471 History of Present illness Narrative* Flash Lovelace MD - 05/20/2025 1:20 PM EDTAssociated Problem(s): Pneumonia due to infectious organism Rinse out mouth with water after use Needs CT scan after a month * Flash Lovelace MD - 05/20/2025 1:00 PM EDT Images from the original note were not included. HPI Hospital Follow-up Additional comments: 05/09 to 05/13 due to coughing blood Last edited by Lorraine Valdez MA on 05/20/2025 7:38 AM. Subjective Patient ID: Tristin Powell is a 85 y.o. male who presents for Hospital Follow-up (05/09 to 05/13 due tocoughing blood). Pt was in hospital at [facility] 05/09 to 05/13 due to coughing that was pneumonia , pt states he still feels it in his chest, and still fatigued , he is still taking steroids Tapering dose of Steroid Legs and feet swollen 11 days of Atbx in the hospital Flowsheet Row Patient Outreach from 05/14/2025 in [facility] with Elaine Saab LPN Hospital Information ED, Hospital or Assisted Facility Discharge? Hospital Patient has been contacted within two business days of discharge Yes Diagnosis Hemoptysis Discharge Date 05/13/25 Discharged To: Home Setting Discharge Hospital [facility] [[facility] Engagement Call Start Time 1109 Admission Date 05/09/25 Medications Discharge medications reviewed and reconciled from hospital? Yes Is the patient having any side effects they believe may be caused by any medication additions or changes? No Does the patient have all medications ordered at discharge? Yes Is the patient taking all medications as directed (includes completed medication regime)? Yes Appointments Does the patient have a primary care provider? Yes [05/20] Does the patient have any upcoming specialty appointments? Yes Does patient have any post discharge follow up testing that needs to be completed? CT/MRI [Follow-up with pulmonary locally in 4-[address] chest at that time to ensure PNA resolution] Self Management Does patient have home health? no [Was ordered py declines. States does not need HH] Patient Teaching Does the patient have access to their discharge instructions? Yes What is the patient's perception of their health status since discharge? Improving Is the patient/caregiver able to teach back the hierarchy of who to call/visit for symptoms/problems? PCP, Specialist, Home Health nurse, Urgent Care, ED, 911 Yes Wrap Up Wrap Up Additional Comments Labs, Ultrasound-abdomen/liver. PT/INR. Admitted to hospital for coughing up blood. Was seen by pulmonary and infectious disease and received steroids and completed antibiotics. Call End Time 1125 Over the past 2 weeks, how often [...] (Tessalon) 100 MG capsule Three times daily fluticasone (Flonase) 50 MCG/ACT nasal spray Administer [...] 3 mL before bedtime. 270 mL 2 losartan (Cozaar) 50 MG tablet Take 1 [...] 1 CAPSULE EVERY DAY 90 capsule 3 polyethylene glycol, PEG, 3350 (Miralax) 17 g [...] bedtime for sleep 30 tablet 5 [DISCONTINUED] amoxicillin-clavulanate (Augmentin) 500-125 MG tablet Take 500 mg by mouth in the morning and 500 mg before bedtime. (Patient not taking: Reported on 05/02/2025) [DISCONTINUED] Azelastine HCl 137 MCG/SPRAY solution Administer 1 spray into affected nostril(s) inthe morning and 1 spray before bedtime. Do all this for 14 days. (Patient taking differently: Administer 1 spray into affected nostril(s) if needed) 90 mL 3 [DISCONTINUED] guaiFENesin (Mucinex) 600 MG 12 hr tablet Twice daily (Patient not taking: Reported on 05/14/2025) [DISCONTINUED] ipratropium-albuterol (Duo-Neb) 0.5-2.5 mg/3 mL nebulizer solution Take 3 mL by nebulization in the morning and 3 mL in the evening and 3 mL before bedtime. [DISCONTINUED] ipratropium-albuterol (Duo-Neb) 0.5-2.5 mg/3 mL nebulizer solution Take 3 mL by nebulization in the morning and 3 mL in the evening and 3 mL before bedtime. 270 mL 2 [DISCONTINUED] sulfamethoxazole-trimethoprim (Bactrim) 400-80 MG tablet Take 1 tablet by mouth every 12 (twelve) hours (Patient not taking: Reported on 05/02/2025) No current facility-administered medications on file prior to visit. I have reviewed and reconciled the history and medication list with the patient today. Allergies Allergen Reactions Doxycycline Unknown Gabapentin GI intolerance Tizanidine Other Reaction(s): Weakness Social History Tobacco Use Smoking status: Never Smokeless tobacco: Never Vaping Use Vaping status: Never Used Substance Use Topics Alcohol use: Not Currently Comment: Coffee 1-2 cups per day Drug use: Never Family History Problem Relation Name Age of Onset Stroke Other Family history Past Medical History: Diagnosis Date Ankle fracture, left 2009 Avascular necrosis of bone of hip ([facility]) 09/04/2011 Right hip Right hip CAD (coronary artery disease) 2013 Carotid artery disease Cataract 2014 Cellulitis 01/19/[address] [facility] Cellulitis LLE Colon polyps 2012 Critical lower limb ischemia ([facility] 09/04/2018 Last Assessment & Plan: Pt s/p LLE angiogram with Dr Hahn who feels that the pt has no further endovascular options. He has consulted Dr. Sarabia for a possible tibial bypass. Pt s/p LLE critical limb ischemia Deann class 4 rest pain with distal discoloration to histoes Gangrene of left foot ([facility]) 10/04/2018 Groin hematoma 2014 RT Femoral groin Hematoma H/O myocardial perfusion scan 07/09/2019 LVEF 56% Myocardial perfusion imaging shows a defect in Apical wall Herpes zoster 09/04/2011 History of being hospitalized 12/06/2020 Strep Pneumonia, Resp. Failure - [facility] History of being hospitalized [place] [facility] 07/15/2021-07/16/2021 History of coronary angiogram [...] of breath) Unstable angina ([facility]) 2013 XR 06/18/2019 XR shows impingement to [...] incomplete bowel prep Diverticulosis Dr. Rowe at [facility] COLONOSCOPY W/ POLYPECTOMY 2011 CORONARY [...] Bilateral 10/12/2023 Dr. Sanchez Visit Vitals BP 130/74 Pulse 76 Ht 6' 2 Wt 243 lb SpO2 94% BMI 31.20 kg/m Smoking Status Never BSA 2.4 m Review of Systems Constitutional: Negative for chills and fever. Respiratory: Positive for cough. Cardiovascular: Positive for leg swelling. Gastrointestinal: Negative for diarrhea. Objective Physical Exam Constitutional: Appearance: Normal appearance. Cardiovascular: Rate and Rhythm: Normal rate and regular rhythm. Pulses: Normal pulses. Heart sounds: Normal heart sounds. Pulmonary: Effort: Pulmonary effort is normal. Breath sounds: Normal breath sounds. Neurological: Mental Status: He is alert. Assessment/Plan Problem List Items Addressed This Visit Pneumonia due to infectious organism - Primary Rinse out mouth with water after use Relevant Medications Jryears-Ourbpyjpklh-Xxfrjdojkn ([employer]) 160-9-4.8 MCG/ACT aerosol No follow-ups on file. documented in this encounterWright Memorial [id number] History of Present illness Narrative* Elaine Saab LPN - 05/14/2025 11:09 AM EDT Images from the original note were not included. Records in chart. KWAME complete and medications reconciled. Pt states cough continues, but not noticing much blood. Pt was to have HH but is not going to complete. He states he does not need it. Pt requests refill on duo-neb and ok with weekly monitoring. Flowsheet Row Patient Outreach from 05/14/2025 in [facility] with Elaine Saab LPN Hospital Information ED, Hospital or Assisted Facility Discharge? Hospital Patient has been contacted within two business days of discharge Yes Diagnosis Hemoptysis Discharge Date 05/13/25 Discharged To: Home Setting Discharge Hospital [facility] [[facility]] Engagement Call Start Time 1109 Admission Date 05/09/25 Medications Discharge medications reviewed and reconciled from hospital? Yes Is the patient having any side effects they believe may be caused by any medication additions or changes? No Does the patient have all medications ordered at discharge? Yes Is the patient taking all medications as directed (includes completed medication regime)? Yes Appointments Does the patient have a primary care provider? Yes [05/20] Does the patient have any upcoming specialty appointments? Yes Does patient have any post discharge follow up testing that needs to be completed? CT/MRI [Follow-up with pulmonary locally in 4-[address] chest at that time to ensure PNA resolution] Self Management Does patient have home health? no [Was ordered py declines. States does not need HH] Patient Teaching Does the patient have access to their discharge instructions? Yes What is the patient's perception of their health status since discharge? Improving Is the patient/caregiver able to teach back the hierarchy of who to call/visit for symptoms/problems? PCP, Specialist, Home Health nurse, Urgent Care, ED, 911 Yes Wrap Up Wrap Up Additional Comments Labs, Ultrasound-abdomen/liver. PT/INR. Admitted to hospital for coughing up blood. Was seen by pulmonary and infectious disease and received steroids and completed antibiotics. Call End Time 1125 * LEONARDA Villavicencio - 05/14/2025 11:09 AM EDT Refill sent. documented in this encounterWright Memorial [id number] Hospital course Narrative * Rafaela Garcia MD - 05/13/2025 11:45 AM EDT Images from the original note [...] during his recent hospital stay at [facility]. As you may know, Mr. Powell is an 85 y/o M with a PMH of CAD, PAD s/p recent SFA- peroneal bypass, chronic R toe osteomyelitis, HTN, HLD, [...] culture here showed normal oropharyngeal microbes. His anticoagulati on as resumed and he was tolerating this with stable hemoglobin at the time of discharge. Discussedreturn precautions with him and discussed calling his [...] patient's records can be obtained via [facility] [employer] at [email or web address] It has been my pleasure participating in this patient's care. Please contact me with any questions or concerns regarding his hospital stay. The total time of discharge was 32 minutes. Sincerely, Rafaela aGrcia MD Division of Hospital Medicine Relevant Data [...] Patient Instructions on Discharge No future appointments. [place] [address] Flash Lovelace MD [address] [phone] Schedule an appointment as soon as possible [...] Your Medications These medications were sent to [facility] [id number] [place] [address] - [address]) [address] [facility] [id number] predniSONE 10 MG TABS documented in this encounterOSU [facility] Hospital course Narrative* Rafaela Garcia MD - 05/13/2025 11:45 AM EDT Images from the original note [...] during his recent hospital stay at [facility]. As you may know, Mr. Powell is an 85 y/o M with a PMH of CAD, PAD s/p recent SFA- peroneal bypass, chronic R toe osteomyelitis, HTN, HLD, [...] culture here showed normal oropharyngeal microbes. His anticoagulati on as resumed and he was tolerating this with stable hemoglobin at the time of discharge. Discussedreturn precautions with him and discussed calling his [...] patient's records can be obtained via [facility] [employer] at [email or web address] It has been my pleasure participating in [...] Patient Instructions on Discharge No future appointments. [address] [address] Flash Lovelace MD [address] [place] [address] Schedule an appointment as soon as possible [...] Your Medications These medications were sent to [facility] [id number] [place] [address] - [address]) [address] [facility] [id number] predniSONE 10 MG TABS documented in this encounterMarymount Hospital09-16-2025 History of Present illness Narrative* Andreea Carpenter RCP - 05/13/2025 9:54 AM EDT Final Discharge Planning CM met with patient at bedside and patient was agreeable to [facility] and using [facility] laie care. Final Discharge Planning Discharge Disposition: Home with Home Health Selected Continued Care - Admitted Since 05/09/2025 Home Medical Care Coordination complete. Service Provider Services Address Phone Fax Patient Preferred [facility] [address] [place] [phone] -- Community Agency Name(s) For Handoff: [facility] [email or web address] Phone For Handoff: [phone] Fax For Handoff: [phone] Plan Plan: Patient will discharge home with [facility]. Patient/Family In Agreement With Plan: yes Alejandra Grey (Teresa), BODY MECHANIC, [facility] Clinical Screen Machine Operator [facility] #[phone] * Sakshi Medina, CSM CONSULTANT - 05/13/2025 9:03 AM EDT Acute Physical Therapy Treatment Prior Gross Functional [...] Assessment/Intervention: Transfer Assessment/Intervention: Sit to Stand Transfer Upper Jay Level: Sit->Stand: supervision Assistive Device: Sit->Stand: front-wheeled walker Skilled Rationale: Verbal cues, Initiation and execution of task Skilled Intervention/Details: Sit->Stand: Pt tolerates x2 from EOB and x1 from chair without LOBwith use of UEs. Stand to Sit Transfer Upper Jay Level: Stand->Sit: supervision Assistive Device: Stand->Sit: front-wheeled walker Skilled Rationale: Verbal cues, Initiation and execution of task Skilled Intervention/Details: Stand->Sit: x1 to bed and x2 to chair Gait/Functional Mobility Assessment/Intervention: Gait Assessment Upper Jay Level: Gait: supervision Assistive Device: Gait: front-wheeled walker Ambulation Distance (Feet): 70 Gait Deviations Identified: antalgic, decreased pamela, flexed posture Gait Skilled Rationale: verbal, upright posture Skilled Intervention/Details - Gait: Pt declines adjusting height of AD and prefers a lower height.He requrests and performs gait training at less distance today due to feeling tired after walking yesterday. Pt demonstrates improved control of AD Stairs Assessment/Intervention: Stairs Assessment Upper Jay Level: Stair Negotiation: stand-by assist Assistive Device: Stair Negotiation: jonathan walker Number of stairs: 1 (x2) Stairs Skilled Rationale: verbal, general safety Skilled Intervention/Details - Stairs: Pt declines stair training initially but with encouragement he performs stepping up on a curb step x2 with vc for stepping up with R and down with left (backed down) Outcome Score(s): CURRENT [facility] Basic Mobility Inpatient Short Form Turning over in bed: 4 - No Assistance Moving from lying on back to sittin - No Assistance Moving to and from bed to chair: 3 - A Little Assistance Sitting/standing from chair: 3 - A Little Assistance Walk in hospital room: 3 - A Little Assistance Climbing 3-5 steps with a railin - A Little Assistance CURRENT [facility] Mobility Raw Score: 20 CURRENT [facility] Mobility Functional Limitation: 35.83% Impaired in Basic [...] safety, Activity outside of therapy, Fall precautions, Functionaltransfers Plan for next session: progress gait distance [...] feet with independence and least restrictive device toimprove ability to safely navigate home and community. [...] Therapy Services or patient discharge from the hospitalthis note represents the current Physical Therapy Discharge Summary. Cosigned by Maggy Almaraz PT at 05/13/2025 3:16 PM EDT Associated attestation - Maggy Almaraz PT - 05/13/2025 3:16 PM EDT This note was reviewed to reflect the patient's clinical status and the treatment plan. I have readand agree with this note. Maggy Almaraz, PT * Beena Nguyen MD - 05/12/2025 5:02 PM EDT Pulmonary Inpatient Consult Follow Up Note We saw Mr. Tristin Bazan Sherry Lima in follow-up on 05/12/2025. Impression: Hemoptysis PNA [...] call with questions. Beena Nguyen MD MPH [id number] * Rhonda Yoon, AMELIA-TECHNOLOGY SERVICES MANAGER - 05/12/2025 3:00 PM EDT Images from the original note [...] Ht 1.88 m (6' 2 ) Wt 108.9kg (240 lb) SpO2 95% BMI 30.81 kg/m [...] RBCURINE NEGATIVE 08/01/2018 BACTERIAURIN NEGATIVE 08/01/2018 Microbiology: [facility] 05/02/25 - RVP - rhinovirus 05/02/25 - [...] with cough. CT chest revealing 10 cm air- filled collection in LLL c/f infected bullae vs [...] ID ATTENDING: Dr Jeane APRN, MS, Adult MINIATURE MODEL MAKER-C Infectious Diseases Pager [phone] Cosigned by Fidel Nguyen MD, PhD at 05/12/2025 4:46 PM EDT Associated attestation - Fidel Nguyen MD, PhD - 05/12/2025 4:46 PM EDT ID Staff: I have interviewed and examined patient independently (05-12-25) and have discussed case with the ID MINIATURE MODEL MAKER. In addition, the chart, labs, micro, radiology, and vitals reviewed. I agree with thefindings and recommendations as documented above by Rhonda Yoon CNP which reflect our combined clinical decision making. Fidel Nguyen MD, PhD Division of Infectious Diseases [facility] * Rafaela Garcia MD - 05/12/2025 1:42 PM EDT Hospital Medicine Progress Note Patient: Tristin Powell [...] Acute hypoxic resp failure - resolved [place] [facility] [place]. 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 Pt tolerates standing at windows ~5 min. Mobility Assessment/Intervention: Supine to Sit Mobility Upper Jay Level: Supine->Sit: stand-by assist Bed Features/Set-up: Supine->Sit: Head of bed elevated, Use of bed rail Skilled Rationale: Verbal cues, Initiation and execution of task Skilled Intervention/Details: Supine->Sit: x1 to EOB Sit to Supine Mobility Upper Jay Level: Sit->Supine: not tested Skilled Intervention/Details: Sit->Supine: pt in chair at end of session Transfer Assessment/Intervention: Sit to Stand Transfer Upper Jay Level: Sit->Stand: contact guard assist Assistive Device: Sit->Stand: gait belt, front-wheeled walker Skilled Rationale: Verbal cues, Initiation and execution of task Skilled Intervention/Details: Sit->Stand: x2 from EOB and x1 from chair Stand to Sit Transfer Upper Jay Level: Stand->Sit: contact guard assist Assistive Device: Stand->Sit: gait belt, front-wheeled walker, armed chair, rail Skilled Rationale: Verbal cues, Initiation and execution of task Skilled Intervention/Details: Stand->Sit: x1 to bed and x2 to chair with cues for safety Gait/Functional Mobility Assessment/Intervention: Gait Assessment Upper Jay Level: Gait: contact guard assist Assistive Device: [...] turning with AD. Stairs Assessment/Intervention: Stairs Assessment Upper Jay Level: Stair Negotiation: not tested Outcome Score(s): CURRENT [facility] Basic Mobility Inpatient Short Form Turning over [...] railin - A Lot of Assistance CURRENT [facility] Mobility Raw Score: 18 CURRENT [facility] Mobility Functional Limitation: 46.58% Impaired in Basic [...] feet with independence and least restrictive device toimprove ability to safely navigate home and community. [...] Therapy Services or patient discharge from the hospitalthis note represents the current Physical Therapy Discharge Summary. Cosigned by Oscar Gann PT at 05/12/2025 1:41 PM EDT * Rafaela Garcia MD - 05/11/2025 12:57 PM EDT Hospital Medicine Progress Note Patient: Tristin Bazan Sherry Wills., : 1940, Impression / Plan Acute bronchitis [...] these can be stopped as it seems strepand pseudomonas have now resolved in respiratory culture. [...] Acute hypoxic resp failure - resolved [place] [facility] [place]. 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 No e/o SSTI currently - rivaroxaban, ASA on hold for hemoptysis. Discussed with pulm today- if hemoptysis remains low volume today will resume anticoagulation on Monday. Can consider doing so with heparin gtt to ensure hetolerates. CAD x7 stents HDL - ASA as [...] Assessed: 05/09/25940 Primary Wound Type: Vascular Ulcer SecondaryWound Type - Vascular Ulcer: Arterial Present on [...] BILIDIRECT 0.2 05/11/2025 Signed, Rafaela Garcia MD * Yris Martinez, [facility] - 05/11/2025 12:48 PM EDT 05/11/25 0828 Respiratory Interventions RT Intervention Acuity [...] by Yris Martinez RCP 05/11/2025 12:48 PM * Obdulio Chapa MD - 05/11/2025 10:37 AM EDT Images from the original note [...] obtain STAT CTA chest with IR consult forembolization eval Staff: Connie Thank you for this consult. All recommendations are preliminary until cosigned by the attending. Obdulio Chapa MD PGY-4, Pulmonary and Critical Care Medicine Cosigned by BOLA Caceres [facility] at 05/11/2025 11:33 AM EDT Associated attestation - Carmel Rosales MB [facility] - 05/11/2025 11:33 AM EDT Pulmonary Attending Attestation: I have personally seen and evaluated Mr. Powell and reviewed Dr. Chapa's note. I agree with findings and plan. I have personally completed the following: reviewed the lab and culture data, rounded withthe consult team, seen and examined the patient and reviewed the available imaging data. Additional details as outlined by the consult team. Thank you for the opportunity to participate inMr. Powell's care. Carmel Rosales MD, [facility], [employer] Veterinary Attendant Of Clinical Medicine Pulmonary and Critical Care Pager #[phone] Attending Physician 05/11/2025 11:33 AM * Monica Martin [facility] - 05/10/2025 6:34 PM EDT Department of Pharmacy Pharmacokinetics Progress Note Patient: [facility]istin Powell [facility] Assessment and Plan: Based upon drug level [...] further questions. Name: Monica Martin RPH Phone: [phone] Date/Time: 05/10/2025 6:35 PM * Rafaela Garcia MD - 05/10/2025 12:30 PM EDT Hospital Medicine Progress Note Patient: Tristin Powell [...] Acute hypoxic resp failure - resolved [place] [facility] [place]. 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 Stays it only seems to occur when he really gets to coughing a lot. Does not feel like what he's using for cough is sufficient. 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 male with CAD [...] obtain STAT CTA chest with IR consult forembolization eval Please hold Staff: Connie Thank you for this consult. All recommendations are preliminary until cosigned by the attending. Obdulio Chapa MD PGY-4, Pulmonary and Critical Care Medicine Cosigned by BOLA Caceres [facility] at 05/10/2025 1:05 PM EDT Associated attestation - Carmel Rosales MB [facility] - 05/10/2025 1:05 PM EDT Pulmonary Attending Attestation: I have personally seen and evaluated Mr. Powell and reviewed Dr. Chapa's note. I agree with findings and plan. I have personally completed the following: reviewed the lab and culture data, rounded withthe consult team, seen and examined the patient and reviewed the available imaging data. Additional details as outlined by the consult team. Thank you for the opportunity to participate inMr. Powell's care. Carmel Rosales MD, [facility], [facility] Veterinary Attendant Of Clinical Medicine Pulmonary and Critical Care Pager #[phone] Attending Physician 05/10/2025 1:05 PM * Dexter Espinoza - 05/09/2025 1:05 PM EDT Department of Pharmacy Admission Medication Reconciliation Note Patient: Tristin Powell Room/Bed: [facility] I have reviewed the patient's home medication list with the following sources Patient recall with prompting, Patient recall without prompting, Dispense Report, and Pharmacy (Name [facility] ). I have also reviewed this list [...] this Medication differently than prescribed, Take 1 spraynasally daily as needed. Fluticasone 50 Mcg/Act - [...] stated, Take 2.5 Mg 2 times daily startin 22 days after the 15 Mg dose [...] Medication when he feels that his blood pressureis too high. Sulfamethoxazole-Trimethoprim 400/80 Mg - Patient reported that he stopped this Medication 12 days ago due to not being able to urinate; Last dispensed: 04/16/2025 #60 for 30 Days Please feel free to contact me with any further questions. Name: Dexter Espinoza Phone #: [phone] Date/Time: 05/09/2025 1:05 PM Time Spent: 45 minutes Cosigned by Sirena Carpenter RPH at 05/09/2025 1:45 PM EDT Associated attestation - Sirena Carpenter RPH - 05/09/2025 1:45 PM EDT Department of Pharmacy Admission Medication Reconciliation Note Patient: Tristin Powell Room/Bed: 08/A Updated CSM CONSULTANT Med List: Prior to Admission Medications Prescriptions [...] reviewed the home medication list with the Patrol Driver. The home medication list status is: complete and home med list marked as reviewed . All changes to the home medication list have been updated in [facility]. Please feel free to contact me with any further questions. Name: Sirena Jim Carpenter [facility] Phone #: [phone] Date/Time: 05/09/2025 1:44 PM * Rafaela Garcia MD - 05/09/2025 12:55 PM EDT Hospital Medicine Progress Note Patient: Tristin Bazan Sherry ., : 1940, Impression / Plan Acute [...] Acute hypoxic resp failure - resolved [place] [facility] [place]. Weaned to room air prior to transfer to [facility] PAD s/ SFA-peroneal bypass 02/2025 Chronic R [...] 05/09/25 0941 Primary Wound Type: Vascular Ulcer SecondaryWound Type - Vascular Ulcer: Arterial Present on [...] that what is in the tube is alot. Stays it only seems to occur when he really gets to coughing a lot. Does not feel like what he's using for cough is sufficient. 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 a [...] BILIDIRECT 0.1 05/09/2025 Signed, Rafaela Garcia MD * Andreea Carpenter RCP - 05/09/2025 12:12 PM EDT Discharge Planning Assessment Is the patient able [...] Yes Name and Contact information: Michael Marshall ([facility]) [phone] Would you like to add additional adult children?: Yes Name and Contact information: Amina Barr Name and Contact information: Richardbrandy Powell Advanced Care Planning Has the patient completed Advance Directives?: Completed, Available in Medical Record Reviewed for accuracy with patient?: Yes Advanced Directives on File: HealthCare Power of Satellite Television Installer Medication Management Does the patient have prescription insurance coverage? : Yes Is the patient on Anticoagulation? : Yes[facility] [phone] [place] [address] - [address] [facility] [address] Living Environment and Support System Is the patient from a facility or long-term?: No Living Environment: House Patient Caregiving Responsibilities: [...] at home? : No Alejandra Grey (Teresa), BODY MECHANIC, CCM Clinical Screen Machine Operator \ * Deena Jacobs OT - 05/09/2025 8:37 AM EDT Acute Occupational Therapy Evaluation Prior Gross Functional [...] has been coughing up bloody secretions, and reportsworsening cough when he moves. 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 Denies recent falls. IADL History IADLs: independent Primary Language: Vietnamese Objective/Observation: Vitals/Vitals Responses to Treatment: Vital signs stable while monitored during session. No adverseresponse or symptoms. O2 Device: room air Vision [...] time to complete LE Dressing Skilled Rationale (Verbal/Tactile/Visual/Demonstration): Setup, Supervision, Technique of activity LE Dressing Intervention/Details: Pt dons soft boot (with non-slip mat maker) on L foot for mobility despite education to utilize more stable footwear. Education provided on how to don R post-op shoe forgreat toe protection. Pt required assistance with donning [...] requires cues for general safety. No overt LOBbut demonstrates wide base of support and flexed posture. Neuro: Proprioception Proprioception: intact Gross Coordination Gross Coordination: bilat UE intact Fine Motor Coordination Additional Documentation: Yes Fine Motor Coordination Left Hand, Manipulation of Objects: normal performance Right Hand, Manipulation of Objects: normal performance Mobility Assessment: Supine to Sit Mobility Upper Jay Level: Supine->Sit: contact guard assist Bed Features/Set-up: Supine->Sit: Head of bed elevated, Use of bed rail Skilled Rationale: Positioning, Verbal cues, Initiation and execution of task Skilled Intervention/Details: Supine->Sit: x1 to EOB with increased time Sit to Supine Mobility Upper [place] Level: Sit->Supine: stand-by assist Bed Features/Set-up: Sit->Supine: Head of bed elevated Skilled Rationale: Verbal cues, Initiation and execution of task Skilled Intervention/Details: Sit->Supine: x1 from EOB Transfer Assessment: Sit to Stand Transfer Upper [place] Level: Sit->Stand: contact guard assist Assistive Device: Sit->Stand: gait belt Skilled Rationale: Verbal cues, Initiation and execution of task, Cues for increased safety Skilled Intervention/Details: Sit->Stand: x1 from EOB impulsively and requires cues for line management/safety Stand to Sit Transfer Upper Jay Level: Stand->Sit: contact guard assist Assistive Device: Stand->Sit: gait belt Skilled Rationale: Verbal cues, Controlled descent for sitting, Technique of activity, Positioning Skilled Intervention/Details: Stand->Sit: x1 to EOB with cues for positioning Functional Mobility: Functional Mobility Upper Jay Level: Functional Mobility/Gait: contact guard assist Assistive [...] currently uses wheelchair?: No Outcome Score(s): CURRENT [facility] Daily Activity Inpatient Short Form Putting on/Taking Off Lower Body Clothin - A Little Assistance Bathin - A Little Assistance Toiletin - A Little Assistance Putting on/Taking Off Upper Body Clothin - A Little Assistance Groomin - A Little Assistance Eatin - No Assistance CURRENT [facility] Activity Raw Score: 19 CURRENT [facility] Activity Functional Limitation/Modifier: 42.80% Currently Impaired in Daily Activity- CK CURRENT [facility] Basic Mobility Inpatient Short Form Turning over [...] a railin - A Little Assistance CURRENT [facility] Mobility Raw Score: 18 CURRENT [facility] Mobility Functional Limitation: 46.58% Impaired in Basic [...] complete lower body dressing tasks with independence usingadaptive equipment/compensatory strategies as needed for improved ability [...] - Patient will transfer to/from toilet/bedside commode withindependence for improved ability to safely complete ADLs. 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 Denies recent [...] intact Mobility Assessment: Supine to Sit Mobility Upper [place] Level: Supine->Sit: contact guard assist Bed Features/Set-up: Supine->Sit: Head of bed elevated, Use of bed rail Skilled Rationale: Verbal cues, Initiation and execution of task Skilled Intervention/Details: Supine->Sit: Increased time to complete Sit to Supine Mobility Upper [place] Level: Sit->Supine: stand-by assist Bed Features/Set-up: Sit->Supine: [...] room Transfer Assessment: Sit to Stand Transfer Upper [place] Level: Sit->Stand: contact guard assist Assistive Device: Sit->Stand: gait belt Skilled Rationale: Verbal cues, Initiation and execution of task Skilled Intervention/Details: Sit->Stand: Pt impulsively stands from EOB w/ repeat cueing for line safety Stand to Sit Transfer Upper Jay Level: Stand->Sit: contact guard assist Assistive Device: Stand->Sit: gait belt Skilled Rationale: Sequencing, Verbal cues, Hand placement, Controlled descent for sitting, Technique of activity, Initiation and execution of task, Cues for increased safety Skilled Intervention/Details: Stand->Sit: X1 EOB Gait/Functional Mobility: Gait Assessment Upper Jay Level: Gait: contact guard assist Assistive Device: [...] currently uses wheelchair?: No Outcome Score(s): CURRENT [facility] Basic Mobility Inpatient Short Form Turning over [...] a railin - A Little Assistance CURRENT [facility] Mobility Raw Score: 18 CURRENT [facility] Mobility Functional Limitation: 46.58% Impaired in Basic Mobility Assessment & Plan: Patient was admitted for 85 y.o. male with a past medical history of CAD x7 stents, PAD s/ SFA-peroneal bypass 02/2025, left metatarsal amputation, chronic R foot ulcer, HTN, HDL, BPH who presents as a transfer from [facility] due to hemoptysis. and seen for therapy evaluation related to above to evaluate for fall risk and to assist with discharge planning. Exam findings include impairments in: Strength, Balance, Pain, Posture, Transfers, Gait/Locomotion,Skin integrity, Aerobic capacity/endurance. These impairments contribute to functional limitations including Ambulation/locomotion pain, Decreased ambulation distance/endurance, Difficulty stair climb ing/descent, Increased fall risk, Difficulty ambulating on uneven/dynamic surfaces, Difficulty withtransfers. Current clinical presentation is Evolving - changing/inconsistent [...] feet with independence and least restrictive device toimprove ability to safely navigate home and community. [...] simultaneous billable skilled care was necessary due tomedical complexity and functional deficits Other discipline: OT [...] Therapy Services or patient discharge from the hospitalthis note represents the current Physical Therapy Discharge Summary. [facility] History of Present illness Narrative* Andreea Carpenter RCP - 05/13/2025 9:54 AM EDT Final Discharge Planning CM met with patient at bedside and patient was agreeable to [facility] Final Discharge Planning Discharge Disposition: Home with Home Health Selected Continued Care - Admitted Since 05/09/2025 Home Medical Care Coordination complete. Service Provider Services Address Phone Fax Patient Preferred [employer] [facility] [address] [place] [address] [phone] -- Community Agency Name(s) For Handoff: [facility] [email or web address] Phone For Handoff: [phone] Fax For Handoff: [phone] Plan Plan: Patient will discharge home with [facility]. Patient/Family In Agreement With Plan: yes Alejandra Grey (Teresa), BODY MECHANIC, [facility] Clinical Screen Machine Operator [facility] #[phone] * Sakshi Medina PTA - 05/13/2025 9:03 AM EDT Acute Physical Therapy Treatment Prior Gross Functional [...] Assessment/Intervention: Transfer Assessment/Intervention: Sit to Stand Transfer Upper Jay Level: Sit->Stand: supervision Assistive Device: Sit->Stand: front-wheeled walker Skilled Rationale: Verbal cues, Initiation and execution of task Skilled Intervention/Details: Sit->Stand: Pt tolerates x2 from EOB and x1 from chair without LOBwith use of UEs. Stand to Sit Transfer Upper Jay Level: Stand->Sit: supervision Assistive Device: Stand->Sit: front-wheeled walker Skilled Rationale: Verbal cues, Initiation and execution of task Skilled Intervention/Details: Stand->Sit: x1 to bed and x2 to chair Gait/Functional Mobility Assessment/Intervention: Gait Assessment Upper Jay Level: Gait: supervision Assistive Device: Gait: front-wheeled walker Ambulation Distance (Feet): 70 Gait Deviations Identified: antalgic, decreased pamela, flexed posture Gait Skilled Rationale: verbal, upright posture Skilled Intervention/Details - Gait: Pt declines adjusting height of AD and prefers a lower height.He requrests and performs gait training at less distance today due to feeling tired after walking yesterday. Pt demonstrates improved control of AD Stairs Assessment/Intervention: Stairs Assessment Upper Jay Level: Stair Negotiation: stand-by assist Assistive Device: Stair Negotiation: jonathan walker Number of stairs: 1 (x2) Stairs Skilled Rationale: verbal, general safety Skilled Intervention/Details - Stairs: Pt declines stair training initially but with encouragement he performs stepping up on a curb step x2 with vc for stepping up with R and down with left (backed down) Outcome Score(s): CURRENT [facility] Basic Mobility Inpatient Short Form Turning over in bed: 4 - No Assistance Moving from lying on back to sittin - No Assistance Moving to and from bed to chair: 3 - A Little Assistance Sitting/standing from chair: 3 - A Little Assistance Walk in hospital room: 3 - A Little Assistance Climbing 3-5 steps with a railin - A Little Assistance [facility]RENT [facility] Mobility Raw Score: 20 CURRENT [facility] Mobility Functional Limitation: 35.83% Impaired in Basic [...] safety, Activity outside of therapy, Fall precautions, Functionaltransfers Plan for next session: progress gait distance [...] feet with independence and least restrictive device toimprove ability to safely navigate home and community. [...] Therapy Services or patient discharge from the hospitalthis note represents the current Physical Therapy Discharge Summary. Cosigned by Maggy Almaraz PT at 05/13/2025 3:16 PM EDT Associated attestation - Maggy Almaraz PT - 05/13/2025 3:16 PM EDT This note was reviewed to reflect the patient's clinical status and the treatment plan. I have readand agree with this note. Maggy Almaraz, PT * Beena Nguyen MD - 05/12/2025 5:02 PM EDT Pulmonary Inpatient Consult Follow Up Note We saw Mr. Tristin Bazan Sherry Lima in follow-up on 05/12/2025. Impression: Hemoptysis PNA [...] (Validated): -- RASS: 0-->alert and calm (05/12 120) Ventilation/Oxygen Therapy (24hrs): Oxygen Therapy O2 Sat [...] and interpreted reviewed the radiographic data in IS. Thank you for the consultation. Please call with questions. Beena Nguyen MD MPH [phone] * Rhonda Yoon APRN-TECHNOLOGY SERVICES MANAGER - 05/12/2025 3:00 PM EDT Images from the original note [...] Ht 1.88 m (6' 2 ) Wt 108.9kg (240 lb) SpO2 95% BMI 30.81 kg/m [...] RBCURINE NEGATIVE 08/01/2018 BACTERIAURIN NEGATIVE 08/01/2018 Microbiology: OSH- [facility] 05/02/25 - RVP - rhinovirus 05/02/25 - [...] with cough. CT chest revealing 10 cm air- filled collection in LLL c/f infected bullae vs [...] ID ATTENDING: Dr Jeane APRN, MS, Adult MINIATURE MODEL MAKER-C Infectious Diseases Pager [phone] Cosigned by Fidel Nguyen MD, PhD at 05/12/2025 4:46 PM EDT Associated attestation - Fidel Nguyen MD, PhD - 05/12/2025 4:46 PM EDT ID Staff: I have interviewed and examined patient independently (05-12-25) and have discussed case with the ID MINIATURE MODEL MAKER. In addition, the chart, labs, micro, radiology, and vitals reviewed. I agree with thefindings and recommendations as documented above by Rhonda Yoon CNP which reflect our combined clinical decision making. Fidel Nguyen MD, PhD Division of Infectious Diseases [facility] * Rafaela Garcia MD - 05/12/2025 1:42 PM EDT [facility] Medicine Progress Note Patient: Tristin [...] Acute hypoxic resp failure - [place] [facility] [place]. 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 Pt tolerates standing at windows ~5 min. Mobility Assessment/Intervention: Supine to Sit Mobility Upper Jay Level: Supine->Sit: stand-by assist Bed Features/Set-up: Supine->Sit: Head of bed elevated, Use of bed rail Skilled Rationale: Verbal cues, Initiation and execution of task Skilled Intervention/Details: Supine->Sit: x1 to EOB Sit to Supine Mobility Upper [place] Level: Sit->Supine: not tested Skilled Intervention/Details: Sit->Supine: pt in chair at end of session Transfer Assessment/Intervention: Sit to Stand Transfer Upper [place] Level: Sit->Stand: contact guard assist Assistive Device: Sit->Stand: gait belt, front-wheeled walker Skilled Rationale: Verbal cues, Initiation and execution of task Skilled Intervention/Details: Sit->Stand: x2 from EOB and x1 from chair Stand to Sit Transfer Upper [place] Level: Stand->Sit: contact guard assist Assistive Device: Stand->Sit: gait belt, front-wheeled walker, armed chair, rail Skilled Rationale: Verbal cues, Initiation and execution of task Skilled Intervention/Details: Stand->Sit: x1 to bed and x2 to chair with cues for safety Gait/Functional Mobility Assessment/Intervention: Gait Assessment Upper [place] Level: Gait: contact guard assist Assistive Device: [...] turning with AD. Stairs Assessment/Intervention: Stairs Assessment Upper Jay Level: Stair Negotiation: not tested Outcome Score(s): CURRENT [facility] Basic Mobility Inpatient Short Form Turning over [...] railin - A Lot of Assistance [facility] Mobility Raw Score: 18 CURRENT [facility] Mobility Functional Limitation: 46.58% Impaired in Basic [...] feet with independence and least restrictive device toimprove ability to safely navigate home and community. [...] Therapy Services or patient discharge from the hospitalthis note represents the current Physical Therapy Discharge Summary. Cosigned by Oscar Gann PT at 05/12/2025 1:41 PM EDT * Rafaela Garcia MD - 05/11/2025 12:57 PM EDT [facility] Medicine Progress Note Patient: Tristin [...] these can be stopped as it seems strepand pseudomonas have now resolved in respiratory culture. [...] Acute hypoxic resp failure - [place] [facility] [place]. 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 No e/o SSTI currently - rivaroxaban, ASA on hold for hemoptysis. Discussed with pulm today- if hemoptysis remains low volume today will resume anticoagulation on Monday. Can consider doing so with heparin gtt to ensure hetolerates. CAD x7 stents HDL - ASA as above - cont atorvastatin HTN - well controlled - cont losartan, metop BPH - cont flomax GERD - cont PPI Problem list reviewed at admission. Quality Self-Check Complexity. . Obesity, class I Body mass index is 30.81 kg/m . - Follow with PCP for dietary and lifestyle modifications. Wound Documentation Wound Vascular Ulcer Arterial 05/09/25 09 Anterior;Right Foot (Active) Date First Assessed/Time First Assessed: 05/09/25940 Primary Wound Type: Vascular Ulcer SecondaryWound Type - Vascular Ulcer: Arterial Present on [...] BILIDIRECT 0.2 05/11/2025 Signed, Rafaela Garcia MD * Yris Martinez, [facility] - 05/11/2025 12:48 PM EDT 05/11/25 0828 Respiratory Interventions RT Intervention Acuity Assessment RT Acuity Assessment Tool RT Protocol Assessment 24 hour reassessment mMRC Dyspnea Score 0 RT Modified Robetr Score 0 Combined Dyspnea Score 0 RT Acuity Level 4 Current Orders: Duo Q6. TXA Q12 Tx Indication: Per Respiratory Therapy Directed Asthma and COPD Inhaler Protocol: acuity level 4 Respiratory Plan of Care: COPD exacerbation, continue DUo Q6 for 24 hours and reassess. The patient's respiratory plan of care was updated by Yris Martinez RCP 05/11/2025 12:48 PM * Obdulio Chapa MD - 05/11/2025 10:37 AM EDT Images from the original note [...] care attending. Official reports included below: CT 9/9 Impression & Recommendations: Tristin Powell Sr. is [...] obtain STAT CTA chest with IR consult forembolization eval Staff: Connie Thank you for this consult. All recommendations are preliminary until cosigned by the attending. Obdulio Chapa MD PGY-4, Pulmonary and Critical Care Medicine Cosigned by BOLA Caceres [facility] at 05/11/2025 11:33 AM EDT Associated attestation - Carmel Rosales MB [facility] - 05/11/2025 11:33 AM EDT Pulmonary Attending Attestation: I have personally seen and evaluated Mr. Powell and reviewed Dr. Chapa's note. I agree with findings and plan. I have personally completed the following: reviewed the lab and culture data, rounded withthe consult team, seen and examined the patient and reviewed the available imaging data. Additional details as outlined by the consult team. Thank you for the opportunity to participate inMr. Powell's care. Carmel Rosales MD, [facility], ATSF Veterinary Attendant Of Clinical Medicine Pulmonary and Critical Care Pager #[phone] Attending Physician 05/11/2025 11:33 AM * Monica Martin RPH - 05/10/2025 6:34 PM EDT Department of Pharmacy Pharmacokinetics Progress Note Patient: Tristin Powell Room/Bed: [facility] Assessment and Plan: Based upon drug level [...] further questions. Name: Monica Martin RPH Phone: [phone] Date/Time: 05/10/2025 6:35 PM * Rafaela Garcia MD - 05/10/2025 12:30 PM EDT [facility] Medicine Progress Note Patient: Tristin [...] Acute hypoxic resp failure - resolved [place] [facility] [place]. 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 toe per recent MRI (see care everywhere) - appreciate wound and podiatry - He will discuss with his outpatient esthetician/owner on Monday what he wants to do [...] 05/09/25 0941 Primary Wound Type: Vascular Ulcer SecondaryWound Type - Vascular Ulcer: Arterial Present on [...] that what is in the tube is alot. Stays it only seems to occur when he really gets to coughing a lot. Does not feel like what he's using for cough is sufficient. 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 All recommendations are preliminary until cosigned by the attending. Obdulio Chapa MD PGY-4, Pulmonary and Critical Care Medicine Cosigned by BOLA Caceres [facility] at 05/10/2025 1:05 PM EDT Associated attestation - Carmel Rosales MB [facility] - 05/10/2025 1:05 PM EDT Pulmonary Attending Attestation: I have personally seen and evaluated Mr. Powell and reviewed Dr. Chapa's note. I agree with findings and plan. I have personally completed the following: reviewed the lab and culture data, rounded withthe consult team, seen and examined the patient and reviewed the available imaging data. Additional details as outlined by the consult team. Thank you for the opportunity to participate inMr. Powell's care. Carmel Rosales MD, [facility], ATS Veterinary Attendant Of Clinical Medicine Pulmonary and Critical Care Pager #[phone] Attending Physician 05/10/2025 1:05 PM * Dexter Espinoza - 05/09/2025 1:05 PM EDT Department of Pharmacy Admission Medication Reconciliation Note Patient: Tristin Powell Room/Bed: [facility]/A I have reviewed the patient's home medication list with the following sources Patient recall with prompting, Patient recall without prompting, Dispense Report, and Pharmacy (Name [facility] ). I have also reviewed this list [...] this Medication differently than prescribed, Take 1 spraynasally daily as needed. Fluticasone 50 Mcg/Act - [...] stated, Take 2.5 Mg 2 times daily startin 22 days after the 15 Mg dose [...] Medication when he feels that his blood pressureis too high. Sulfamethoxazole-Trimethoprim 400/80 Mg - Patient reported that he stopped this Medication 12 days ago due to not being able to urinate; Last dispensed: 04/16/2025 #60 for 30 Days Please feel free to contact me with any further questions. Name: Dexter Espinoza Phone #: [phone] Date/Time: 05/09/2025 1:05 PM Time Spent: 45 minutes Cosigned by Sirena Carpenter RP at 05/09/2025 1:45 PM EDT Associated attestation - Sirena Carpenter RP - 05/09/2025 1:45 PM EDT Department of Pharmacy Admission Medication Reconciliation Note Patient: Tristin Powell Room/Bed: [facility] Updated CSM CONSULTANT Med List: Prior to Admission Medications Prescriptions [...] reviewed the home medication list with the Patrol Driver. The home medication list status is: complete and home med list marked as reviewed . All changes to the home medication list have been updated in [facility]. Please feel free to contact me with any further questions. Name: Sirena Carpenter [facility] Phone #: [phone] Date/Time: 05/09/2025 1:44 PM * Rafaela Garcia MD - 05/09/2025 12:55 PM EDT Hospital Medicine Progress Note Patient: Tristin Powell [...] Acute hypoxic resp failure - [place] [facility] [place]. Weaned to room air prior [...] 05/09/25 0941 Primary Wound Type: Vascular Ulcer SecondaryWound Type - Vascular Ulcer: Arterial Present on [...] that what is in the tube is alot. Stays it only seems to occur when he really gets to coughing a lot. Does not feel like what he's using for cough is sufficient. 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 a [...] BILIDIRECT 0.1 05/09/2025 Signed, Rafaela Garcia MD * Andreea Carpenter RCP - 05/09/2025 12:12 PM EDT Discharge Planning Assessment Is the patient able [...] Yes Name and Contact information: Michael Marshall ([facility]) [phone] Would you like to add additional adult children?: Yes Name and Contact information: Amina Barr Name and Contact information: Richard Powell Advanced Care Planning Has the patient completed Advance Directives?: Completed, Available in Medical Record Reviewed for accuracy with patient?: Yes Advanced Directives on File: HealthCare Power of Satellite Television Installer Medication Management Does the patient have prescription insurance coverage? : Yes Is the patient on Anticoagulation? : Yes- [facility] [id number] [place] [address] - [address] [facility] [address] [facility] [id number] Living Environment and Support System Is the patient from a facility or long-term?: No Living Environment: House Patient Caregiving Responsibilities: [...] at home? : No Alejandra Grey (Teresa), BODY MECHANIC, CCM Clinical Screen Machine Operator \ * Deena Jacobs OT - 05/09/2025 8:37 AM EDT Acute Occupational Therapy Evaluation Prior Gross Functional [...] has been coughing up bloody secretions, and reportsworsening cough when he moves. 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 Denies recent falls. IADL History IADLs: independent Primary Language: Vietnamese Objective/Observation: Vitals/Vitals Responses to Treatment: Vital signs stable while monitored during session. No adverseresponse or symptoms. O2 Device: room air Vision [...] time to complete LE Dressing Skilled Rationale (Verbal/Tactile/Visual/Demonstration): Setup, Supervision, Technique of activity LE Dressing Intervention/Details: Pt dons soft boot (with non-slip mat maker) on L foot for mobility despite education to utilize more stable footwear. Education provided on how to don R post-op shoe forgreat toe protection. Pt required assistance with donning [...] requires cues for general safety. No overt LOBbut demonstrates wide base of support and flexed posture. Neuro: Proprioception Proprioception: intact Gross Coordination Gross Coordination: bilat UE intact Fine Motor Coordination Additional Documentation: Yes Fine Motor Coordination Left Hand, Manipulation of Objects: normal performance Right Hand, Manipulation of Objects: normal performance Mobility Assessment: Supine to Sit Mobility Upper [place] Level: Supine->Sit: contact guard assist Bed Features/Set-up: Supine->Sit: Head of bed elevated, Use of bed rail Skilled Rationale: Positioning, Verbal cues, Initiation and execution of task Skilled Intervention/Details: Supine->Sit: x1 to EOB with increased time Sit to Supine Mobility Upper [place] Level: Sit->Supine: stand-by assist Bed Features/Set-up: Sit->Supine: Head of bed elevated Skilled Rationale: Verbal cues, Initiation and execution of task Skilled Intervention/Details: Sit->Supine: x1 from EOB Transfer Assessment: Sit to Stand Transfer Upper [place] Level: Sit->Stand: contact guard assist Assistive Device: Sit->Stand: gait belt Skilled Rationale: Verbal cues, Initiation and execution of task, Cues for increased safety Skilled Intervention/Details: Sit->Stand: x1 from EOB impulsively and requires cues for line management/safety Stand to Sit Transfer Upper [place] Level: Stand->Sit: contact guard assist Assistive Device: Stand->Sit: gait belt Skilled Rationale: Verbal cues, Controlled descent for sitting, Technique of activity, Positioning Skilled Intervention/Details: Stand->Sit: x1 to EOB with cues for positioning Functional Mobility: Functional Mobility Upper [place] Level: Functional Mobility/Gait: contact guard assist Assistive [...] currently uses wheelchair?: No Outcome Score(s): [facility] Daily Activity Inpatient Short Form Putting on/Taking Off Lower Body Clothin - A Little Assistance Bathin - A Little Assistance Toiletin - A Little Assistance Putting on/Taking Off Upper Body Clothin - A Little Assistance Groomin - A Little Assistance Eatin - No Assistance [facility] Activity Raw Score: 19 [facility]RENT [facility] Activity Functional Limitation/Modifier: 42.80% Currently Impaired in Daily Activity- CK [facility]RENT [facility] Basic Mobility Inpatient Short Form Turning over [...] a railin - A Little Assistance [facility]RENT [facility] Mobility Raw Score: 18 [facility]RENT [facility] Mobility Functional Limitation: 46.58% Impaired in Basic [...] complete lower body dressing tasks with independence usingadaptive equipment/compensatory strategies as needed for improved ability [...] - Patient will transfer to/from toilet/bedside commode withindependence for improved ability to safely complete ADLs. 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 Denies recent [...] intact Mobility Assessment: Supine to Sit Mobility Upper [place] Level: Supine->Sit: contact guard assist Bed Features/Set-up: Supine->Sit: Head of bed elevated, Use of bed rail Skilled Rationale: Verbal cues, Initiation and execution of task Skilled Intervention/Details: Supine->Sit: Increased time to complete Sit to Supine Mobility Upper [place] Level: Sit->Supine: stand-by assist Bed Features/Set-up: Sit->Supine: [...] room Transfer Assessment: Sit to Stand Transfer Upper [place] Level: Sit->Stand: contact guard assist Assistive Device: Sit->Stand: gait belt Skilled Rationale: Verbal cues, Initiation and execution of task Skilled Intervention/Details: Sit->Stand: Pt impulsively stands from EOB w/ repeat cueing for line safety Stand to Sit Transfer Upper [place] Level: Stand->Sit: contact guard assist Assistive Device: Stand->Sit: gait belt Skilled Rationale: Sequencing, Verbal cues, Hand placement, Controlled descent for sitting, Technique of activity, Initiation and execution of task, Cues for increased safety Skilled Intervention/Details: Stand->Sit: X1 EOB Gait/Functional Mobility: Gait Assessment Upper [place] Level: Gait: contact guard assist Assistive Device: [...] currently uses wheelchair?: No Outcome Score(s): [facility]RENT [facility] Basic Mobility Inpatient Short Form Turning over [...] a railin - A Little Assistance [facility] Mobility Raw Score: 18 [facility]RENT [facility] Mobility Functional Limitation: 46.58% Impaired in Basic Mobility Assessment & Plan: Patient was admitted for 85 y.o. male with a past medical history of CAD x7 stents, PAD s/ SFA-peroneal bypass 02/2025, left metatarsal amputation, chronic R foot ulcer, HTN, HDL, BPH who presents as a transfer from [facility] due to hemoptysis. and seen for therapy evaluation related to above to evaluate for fall risk and to assist with discharge planning. Exam findings include impairments in: Strength, Balance, Pain, Posture, Transfers, Gait/Locomotion,Skin integrity, Aerobic capacity/endurance. These impairments contribute to functional limitations including Ambulation/locomotion pain, Decreased ambulation distance/endurance, Difficulty stair climb ing/descent, Increased fall risk, Difficulty ambulating on uneven/dynamic surfaces, Difficulty withtransfers. Current clinical presentation is Evolving - changing/inconsistent [...] feet with independence and least restrictive device toimprove ability to safely navigate home and community. [...] simultaneous billable skilled care was necessary due tomedical complexity and functional deficits Other discipline: OT [...] Therapy Services or patient discharge from the hospitalthis note represents the current Physical Therapy Discharge Summary. [facility] Miscellaneous Notes* Plan of Care - Sakshi Medina PTA - 05/13/2025 9:03 AM EDT Problem: PT - General Goals Goal: Sit <-> Stand Transfers - Patient will perform sit to/from stand transfers with independence and least restrictive device in order to improve functional mobility and safety. Outcome: Progressing Goal: Ambulation - Patient will ambulate 200 feet with independence and least restrictive device toimprove ability to safely navigate home and community. Outcome: Ongoing Goal: Stairs - Patient will ascend/descend 1 stairs with independence, least restrictive device, and single railing(s) to improve ability to safely navigate home and community. Outcome: Progressing Cosigned by Maggy Almaraz PT at 05/13/2025 3:15 PM EDT * Plan of Care - Sakshi Medina PTA - 05/12/2025 8:18 AM EDT Problem: PT - General Goals Goal: [...] feet with independence and least restrictive device toimprove ability to safely navigate home and community. Outcome: Progressing Goal: Strength - Patient will demonstrate understanding of exercise program. Outcome: Progressing Cosigned by Oscar Gann PT at 05/12/2025 1:40 PM EDT * Plan of Care - Solitario Gonzalez RN - 05/12/2025 12:47 AM EDT Problem: Swallowing Impairment Goal: Optimal Eating/Swallowing [...] Ineffective Goal: Effective Breathing Pattern Outcome: Progressing * Nursing Notes - Solitario Gonzalez RN - 05/11/2025 8:39 PM EDT 2038: MD Nixon notified of patient complaining of chest tightness and shortness of breath. Patient stated it is due to the cefepime that was infusing. Cefepime paused. VSS. Per chart, pt was complaining of chest tightness 05/10 when receiving cefepime as well. 2133: Pt refusing to restart cefepime. States his discomfort goes away when it is not infusing. MD Nixon aware. * Plan of Care - Tameka Wells RN - 05/11/2025 6:57 PM EDT Problem: Swallowing Impairment Goal: Optimal Eating/Swallowing without Aspiration Outcome: Progressing Problem: Adult Inpatient Plan of Care Goal: Plan of Care Review Outcome: Progressing Goal: Patient-Specific Goal (Individualized) Outcome: Progressing * Plan of Care - Heladio Sandra RN - 05/11/2025 5:36 AM EDT Problem: Breathing Pattern Ineffective Goal: Effective Breathing Pattern Outcome: Progressing Problem: Wound Goal: Optimal Wound Healing Outcome: Progressing Problem: Wound Goal: Optimal Coping Outcome: Progressing Problem: Infection Goal: Absence of Infection Signs and Symptoms Outcome: Progressing Problem: Adult Inpatient Plan of Care Goal: Plan of Care Review Outcome: Progressing * Plan of Care - Kennedi Marshall RN - 05/10/2025 1:20 PM EDT Problem: Swallowing Impairment Goal: Optimal [...] feet with independence and least restrictive device toimprove ability to safely navigate home and community. [...] complete lower body dressing tasks with independence usingadaptive equipment/compensatory strategies as needed for improved ability [...] - Patient will transfer to/from toilet/bedside commode withindependence for improved ability to safely complete ADLs. [...] Care Goal: Patient-Specific Goal (Individualized) Outcome: Progressing * Plan of Care - Kate Garcia RN - 05/09/2025 3:58 PM EDT Patient came with packet of OSH records, which have already been sent on to medical records, and scanned into media tab, , culture results are on page 19, updated ID OSH disc imaging uploaded by hospitalist Van fischer, Dr garcia and ID updated C Radha Hospitalist Van [id number] * Nursing Notes - Rajiv Page RN - 05/09/2025 9:41 AM EDT Images from the original note [...] Assessed: 05/09/25940 Primary Wound Type: Vascular Ulcer SecondaryWound Type - Vascular Ulcer: Arterial Present on [...] notified of assessment and plan. Please page #[phone] or reconsult with any further needs. * Plan of Care - Deena Jacobs OT - 05/09/2025 8:37 AM EDT Problem: OT - ADLs Goal: Lower Body Dressing - Patient will complete lower body dressing tasks with independence usingadaptive equipment/compensatory strategies as needed for improved ability [...] - Patient will transfer to/from toilet/bedside commode withindependence for improved ability to safely complete ADLs. [...] with minimal cues for accuracy. Outcome: Ongoing * Plan of Care - Amairani Anaya, PT - 05/09/2025 8:36 AM EDT Problem: PT - General Goals Goal: [...] feet with independence and least restrictive device toimprove ability to safely navigate home and community. Outcome: Ongoing Goal: Stairs - Patient will ascend/descend 1 stairs with independence, least restrictive device, and single railing(s) to improve ability to safely navigate home and community. Outcome: Ongoing Goal: Strength - Patient will demonstrate understanding of exercise program. Outcome: Ongoing * Nursing Notes - Valentino Olivares RN - 05/09/2025 2:00 AM EDT On admission to [facility], from outside facility a dual RN initial assessment of skin condition was performed by Valentino Olivares RN and Manohar Tolliver RN Skin Assessment: Skin not within defined limits. - Wound(s) identified: Yes - Photo taken and uploaded into notes in IHIS: Yes LDA Added:No Valentino Olivares RN [facility] Miscellaneous Notes* Plan of Care - Sakshi Medina PTA - 05/13/2025 9:03 AM EDT Problem: PT - General Goals Goal: Sit <-> Stand Transfers - Patient will perform sit to/from stand transfers with independence and least restrictive device in order to improve functional mobility and safety. Outcome: Progressing Goal: Ambulation - Patient will ambulate 200 feet with independence and least restrictive device toimprove ability to safely navigate home and community. Outcome: Ongoing Goal: Stairs - Patient will ascend/descend 1 stairs with independence, least restrictive device, and single railing(s) to improve ability to safely navigate home and community. Outcome: Progressing Cosigned by Maggy Almaraz PT at 05/13/2025 3:15 PM EDT * Plan of Care - Sakshi Medina PTA - 05/12/2025 8:18 AM EDT Problem: PT - General Goals Goal: [...] feet with independence and least restrictive device toimprove ability to safely navigate home and community. Outcome: Progressing Goal: Strength - Patient will demonstrate understanding of exercise program. Outcome: Progressing Cosigned by Oscar Gann PT at 05/12/2025 1:40 PM EDT * Plan of Care - Solitario Gonzalez RN - 05/12/2025 12:47 AM EDT Problem: Swallowing Impairment Goal: Optimal Eating/Swallowing [...] Ineffective Goal: Effective Breathing Pattern Outcome: Progressing * Nursing Notes - Solitario Gonzalez RN - 05/11/2025 8:39 PM EDT 2038: MD Nixon notified of patient complaining of chest tightness and shortness of breath. Patient stated it is due to the cefepime that was infusing. Cefepime paused. VSS. Per chart, pt was complaining of chest tightness 05/10 when receiving cefepime as well. 2133: Pt refusing to restart cefepime. States his discomfort goes away when it is not infusing. MD Nixon aware. * Plan of Care - Tameka Wells RN - 05/11/2025 6:57 PM EDT Problem: Swallowing Impairment Goal: Optimal Eating/Swallowing without Aspiration Outcome: Progressing Problem: Adult Inpatient Plan of Care Goal: Plan of Care Review Outcome: Progressing Goal: Patient-Specific Goal (Individualized) Outcome: Progressing * Plan of Care - Heladio Sandra RN - 05/11/2025 5:36 AM EDT Problem: Breathing Pattern Ineffective Goal: Effective Breathing Pattern Outcome: Progressing Problem: Wound Goal: Optimal Wound Healing Outcome: Progressing Problem: Wound Goal: Optimal Coping Outcome: Progressing Problem: Infection Goal: Absence of Infection Signs and Symptoms Outcome: Progressing Problem: Adult Inpatient Plan of Care Goal: Plan of Care Review Outcome: Progressing * Plan of Care - Kennedi Marshall RN - 05/10/2025 1:20 PM EDT Problem: Swallowing Impairment Goal: Optimal [...] feet with independence and least restrictive device toimprove ability to safely navigate home and community. [...] complete lower body dressing tasks with independence usingadaptive equipment/compensatory strategies as needed for improved ability [...] - Patient will transfer to/from toilet/bedside commode withindependence for improved ability to safely complete ADLs. [...] Care Goal: Patient-Specific Goal (Individualized) Outcome: Progressing * Plan of Care - Kate Garcia RN - 05/09/2025 3:58 PM EDT Patient came with packet of OSH records, which have already been sent on to medical records, and scanned into media tab, , culture results are on page 19, updated ID OSH disc imaging uploaded by hospitalist Van fischer, Dr garcia and ID updated C Radha Hospitalist Van [id number] * Nursing Notes - Rajiv Page RN - 05/09/2025 9:41 AM EDT Images from the original note [...] Assessed: 05/09/25940 Primary Wound Type: Vascular Ulcer SecondaryWound Type - Vascular Ulcer: Arterial Present on [...] notified of assessment and plan. Please page #[phone] or reconsult with any further needs. * Plan of Care - Deena Jacobs OT - 05/09/2025 8:37 AM EDT Problem: OT - ADLs Goal: Lower Body Dressing - Patient will complete lower body dressing tasks with independence usingadaptive equipment/compensatory strategies as needed for improved ability [...] - Patient will transfer to/from toilet/bedside commode withindependence for improved ability to safely complete ADLs. [...] with minimal cues for accuracy. Outcome: Ongoing * Plan of Care - Amairani Anaya PT - 05/09/2025 8:36 AM EDT Problem: PT - General Goals Goal: [...] feet with independence and least restrictive device toimprove ability to safely navigate home and community. Outcome: Ongoing Goal: Stairs - Patient will ascend/descend 1 stairs with independence, least restrictive device, and single railing(s) to improve ability to safely navigate home and community. Outcome: Ongoing Goal: Strength - Patient will demonstrate understanding of exercise program. Outcome: Ongoing * Nursing Notes - Valentino Olivares RN - 05/09/2025 2:00 AM EDT On admission to [facility], from outside facility a dual RN initial assessment of skin condition was performed by Valentino Olivares RN and Manohar Tolliver RN Skin Assessment: Skin not within defined limits. - Wound(s) identified: Yes - Photo taken and uploaded into notes in IHIS: Yes LDA Added:No Valentino Olivares RN [facility] Plan of care note* Plan of Care - Sakshi Medina PTA - 05/13/2025 9:03 AM EDT Problem: PT - General Goals Goal: Sit <-> Stand Transfers - Patient will perform sit to/from stand transfers with independence and least restrictive device in order to improve functional mobility and safety. Outcome: Progressing Goal: Ambulation - Patient will ambulate 200 feet with independence and least restrictive device toimprove ability to safely navigate home and community. Outcome: Ongoing Goal: Stairs - Patient will ascend/descend 1 stairs with independence, least restrictive device, and single railing(s) to improve ability to safely navigate home and community. Outcome: Progressing Cosigned by Maggy Almaraz PT at 05/13/2025 3:15 PM EDT [facility]09-[facility] Plan of care note* Plan of Care - Sakshi Medina PTA - 05/12/2025 8:18 AM EDT Problem: PT - General Goals Goal: [...] feet with independence and least restrictive device toimprove ability to safely navigate home and community. Outcome: Progressing Goal: Strength - Patient will demonstrate understanding of exercise program. Outcome: Progressing Cosigned by Oscar Gann PT at 05/12/2025 1:40 PM EDT [facility]09-15-[facility] Plan of care note* Plan of Care - Solitario Gonzalez RN - 05/12/2025 12:47 AM EDT Problem: Swallowing Impairment Goal: Optimal Eating/Swallowing [...] Ineffective Goal: Effective Breathing Pattern Outcome: Progressing [facility]09-14-20[facility] Nurse Note* Nursing Notes - Solitario Gonzalez RN - 05/11/2025 8:39 PM EDT 2038: MD Nixon notified of patient complaining of chest tightness and shortness of breath. Patient stated it is due to the cefepime that was infusing. Cefepime paused. VSS. Per chart, pt was complaining of chest tightness 05/10 when receiving cefepime as well. 2133: Pt refusing to restart cefepime. States his discomfort goes away when it is not infusing. MD Nixon aware. [facility]09-14-20[facility] Plan of care note* Plan of Care - Tameka Wells RN - 05/11/2025 6:57 PM EDT Problem: Swallowing Impairment Goal: Optimal Eating/Swallowing without Aspiration Outcome: Progressing Problem: Adult Inpatient Plan of Care Goal: Plan of Care Review Outcome: Progressing Goal: Patient-Specific Goal (Individualized) Outcome: Progressing [facility]-14-[facility] Plan of care note* Plan of Care - Heladio Sandra RN - 05/11/2025 5:36 AM EDT Problem: Breathing Pattern Ineffective Goal: Effective Breathing Pattern Outcome: Progressing Problem: Wound Goal: Optimal Wound Healing Outcome: Progressing Problem: Wound Goal: Optimal Coping Outcome: Progressing Problem: Infection Goal: Absence of Infection Signs and Symptoms Outcome: Progressing Problem: Adult Inpatient Plan of Care Goal: Plan of Care Review Outcome: Progressing [facility] Plan of care note* Plan of Care - Kennedi Marshall RN - 05/10/2025 1:20 PM EDT Problem: Swallowing Impairment Goal: Optimal [...] feet with independence and least restrictive device toimprove ability to safely navigate home and community. [...] complete lower body dressing tasks with independence usingadaptive equipment/compensatory strategies as needed for improved ability [...] - Patient will transfer to/from toilet/bedside commode withindependence for improved ability to safely complete ADLs. [...] Care Goal: Patient-Specific Goal (Individualized) Outcome: Progressing [facility] Plan of care note* Plan of Care - Kate Gacria RN - 05/09/2025 3:58 PM EDT Patient came with packet of OSH records, which have already been sent on to medical records, and scanned into media tab, , culture results are on page 19, updated ID OSH disc imaging uploaded by hospitalist Van fischer, Dr garcia and ID updated C Radha Hospitalist Van [id number] [facility]* Obdulio Chapa MD - 05/09/2025 2:40 PM EDTAssociated Order(s): IP CONSULT TO PULMONOLOGY Pulmonary/Critical Care Medicine [...] treated for AECOPD exacerbation at OSH and [facility] but states that he felt that he was not improving. Was also being treated with broad spectrum antibiotics. Only usesa PRN inhaler at home, states that he [...] obtain STAT CTA chest with IR consult forembolization eval Please hold Staff: Wendy Thank you [...] Laterality: N/A; Surgeon: Isaias Vogt MD; Location: [facility] CARDIAC CATH/EP LAB PERIPHERAL STENT PLACEMENT N/A 08/09/2018 Laterality: N/A; Surgeon: Isaias Vogt MD; Location: [facility] CARDIAC CATH/EP LAB ATHERECTOMY PERIPHERAL N/A 08/09/2018 Laterality: N/A; Surgeon: Isaias Vogt MD; Location: [facility] CARDIAC CATH/EP LAB CORONARY STENT PLACEMENT 2007 [...] as outlined below Beena Nguyen MD MPH [facility]09-12-20[facility] Consult note* Obdulio Chapa MD - 05/09/2025 2:40 PM EDTAssociated Order(s): IP CONSULT TO PULMONOLOGY Pulmonary/Critical Care Medicine [...] treated for AECOPD exacerbation at OSH and [facility] but states that he felt that he was not improving. Was also being treated with broad spectrum antibiotics. Only usesa PRN inhaler at home, states that he [...] obtain STAT CTA chest with IR consult forembolization eval Please hold Staff: Wendy Thank you [...] ANTERIOR APPROACH Right 07/15/2021 Laterality: Right; Surgeon: Dasahwn Silvestre MD; Location: [facility] PERIPHERAL [...] as outlined below Beena Nguyen MD MPH * Paola Cordova MD - 05/09/2025 10:28 AM EDTAssociated Order(s): IP CONSULT TO INFECTIOUS DISEASE INFECTIOUS [...] CAD, PAD s/p SFA-peroneal bypass 02/2025, HTN, HLD,BPH, A fib, CKD3a who presented on 05/09/2025 as a transfer from [facility]. Patient presented to [facility] 05/02/25 with LAM, cough x10 days with blood streaked sputum. Was on steroids and albuterol [employer] without improvement. At [facility], he was found tohave rhinovirus. CT chest (05/04/25) showed bilateral patchy infiltrates, 10 cm air-fluid collection LLL c/f infected bullae vs abscess. Started on abx (pip/tazo and doxycycline), prednisone, duonebs. Developed worsening hemoptysis and pulmonary recommended transfer to [facility] for embolization. Patient was admitted to [place] [id number]. On RA, sputum pink tinged. Patient is afebile. Currently on cefepime and vancomycin. Has coughing fits that make him sob. Blood tinged sputum. Has fevers at [facility], but has since resolved. Of note, patient was admitted to [facility] 03/14/25 - 03/21/25 with acute RLE ischemia. S/p distal SFA-peroneal bypass 03/12/25. After he got home, his right great toe became black on the lateral side. Saw his esthetician/owner who took off the nail. Prescribed him amox/clav and TMP/SMX. Patient has known bone exposure and his esthetician/owner prepped him for the fact that it may need to come off. Review of Systems - all systems reviewed and negative unless stated in the HPI. 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 Family History Problem Relation Age [...] 05/09/2025 BILIDIRECT 0.1 05/09/2025 Microbiology: (personally reviewed) [facility] - called micro to get results 05/02/25 [...] pneumo ag neg Imagin05/06/25 - CT chest ([facility]) - unable to see images - potential infected LLL bulla is once again noted. Impression: no significant chagne in lung findings compared to the prior study from 05/04/25. Bibasilar consolidations with potential infected bullae involving the LLL persists Impression: 85 y.o. male with CAD, PAD s/p SFA-peroneal bypass 02/2025, HTN, HLD, BPH, A fib, CKD3a transferred from [facility] with PNA and hemoptysis. Need full records and images brought over from [facility] to review. Initial sputum culture with pneumococcus with surprising MICs. Has been on amox/clav and TMP/SMX asan outpatient for his toe. Has exposed bone [...] patient history assessments, advanced diagnostic evaluations, and collaborationwith public health agencies for contact tracing and [...] page the on-call ID/1st call Fellow pager. [employer] [facility] - Paola Cordova MD Veterinary Attendantlive ammunition inspector Division of Infectious Diseases Pager #[phone] [1] Past Medical History: Diagnosis Date Arthritis [...] Allergies Allergen Reactions Gabapentin documented in this encounterOSU [facility] Consult note* Obdulio Chapa MD - 05/09/2025 2:40 PM EDTAssociated Order(s): IP CONSULT TO PULMONOLOGY Pulmonary/Critical Care Medicine [...] treated for AECOPD exacerbation at [facility] and TXA nebs but states that he felt that he was not improving. Was also being treated with broad spectrum antibiotics. Only usesa PRN inhaler at home, states that he [...] obtain STAT CTA chest with IR consult forembolization eval Please hold Staff: Wendy Thank you [...] as outlined below Beena Nguyen MD MPH * Paola Cordova MD - 05/09/2025 10:28 AM EDTAssociated Order(s): IP CONSULT TO INFECTIOUS DISEASE INFECTIOUS [...] CAD, PAD s/p SFA-peroneal bypass 02/2025, HTN, HLD,BPH, A fib, CKD3a who presented on 05/09/2025 as a transfer from [facility]. Patient presented to [facility] 05/02/25 with LAM, cough x10 days with blood streaked sputum. Was on steroids and albuterol [employer] without improvement. At [facility], he was found tohave rhinovirus. CT chest (05/04/25) showed bilateral patchy infiltrates, 10 cm air-fluid collection LLL c/f infected bullae vs abscess. Started on abx (pip/tazo and doxycycline), prednisone, duonebs. Developed worsening hemoptysis and pulmonary [facility]. Patient was admitted to [place] [address]. On RA, sputum pink tinged. Patient is afebile. Currently on cefepime and vancomycin. Has coughing fits that make him sob. Blood tinged sputum. Has fevers at [facility], but has since resolved. Of note, patient was admitted to [facility] 03/14/25 - 03/21/25 with acute RLE ischemia. S/p distal SFA-peroneal bypass 03/12/25. After he got home, his right great toe became black on the lateral side. Saw his esthetician/owner who took off the nail. Prescribed him amox/clav and TMP/SMX. Patient has known bone exposure and his esthetician/owner prepped him for the fact that it may need to come off. Review of Systems - all systems reviewed and negative unless stated in the HPI. 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 Family History Problem Relation Age [...] 05/09/2025 BILIDIRECT 0.1 05/09/2025 Microbiology: (personally reviewed) [facility] - called micro to get results 05/02/25 [...] pneumo ag neg Imagin05/06/25 - CT chest ([facility]) - unable to see images - potential infected LLL bulla is once again noted. Impression: no significant chagne in lung findings compared to the prior study from 05/04/25. Bibasilar consolidations with potential infected bullae involving the LLL persists Impression: 85 y.o. male with CAD, PAD s/p SFA-peroneal bypass 02/2025, HTN, HLD, BPH, A fib, CKD3a transferred from [facility] with PNA and hemoptysis. Need full records and images brought over from [facility] to review. Initial sputum culture with pneumococcus with surprising MICs. Has been on amox/clav and TMP/SMX asan outpatient for his toe. Has exposed bone [...] patient history assessments, advanced diagnostic evaluations, and collaborationwith public health agencies for contact tracing and diagnostic testing. Discussed with primary team. ID Team 5 will continue to follow with you. If you have any questions, please reach out to the ID Team 5 pager found in QRespicardiaa below. The ID Team pagers are available - Monday through Monday from 7:00 am to 06:00 pm. For emergent or after hour issues, please page the on-call ID/1st call Fellow pager. [employer] - [facility] - Paola Cordova MD Veterinary Attendantlive ammunition inspector Division of Infectious Diseases Pager #[phone] [1] Past Medical History: Diagnosis Date Arthritis [...] Allergies Allergen Reactions Gabapentin documented in this encounterOS[facility]09-[facility] Nurse Note* Nursing Notes - Valentino Olivares RN - 05/09/2025 2:00 AM EDT On admission to [facility], from outside facility a dual RN initial assessment of skin condition was performed by Valentino Olivares RN and Manohar Tolliver RN Skin Assessment: Skin not within defined limits. - Wound(s) identified: Yes - Photo taken and uploaded into notes in IHIS: Yes LDA Added:No Valentino Olivares RN [facility]09-12-2025 Consult note* Paola Cordova MD - 05/09/2025 10:28 AM EDTAssociated Order(s): IP CONSULT TO INFECTIOUS DISEASE INFECTIOUS [...] CAD, PAD s/p SFA-peroneal bypass 02/2025, HTN, HLD,BPH, A fib, CKD3a who presented on 05/09/2025 as a transfer from [facility]. Patient presented to [facility] 05/02/25 with LAM, cough x10 days with blood streaked sputum. Was on steroids and albuterol [employer] without improvement. At [facility], he was found tohave rhinovirus. CT chest (05/04/25) showed bilateral patchy infiltrates, 10 cm air-fluid collection LLL c/f infected bullae vs abscess. Started on abx (pip/tazo and doxycycline), prednisone, duonebs. Developed worsening hemoptysis and pulmonary [facility]. Patient was admitted to [place] [address]. On RA, sputum pink tinged. Patient is afebile. Currently on cefepime and vancomycin. Has coughing fits that make him sob. Blood tinged sputum. Has fevers at [facility], but has since resolved. Of note, patient was admitted to [facility] 03/14/25 - 03/21/25 with acute RLE ischemia. S/p distal SFA-peroneal bypass 03/12/25. After he got home, his right great toe became black on the lateral side. Saw his esthetician/owner who took off the nail. Prescribed him amox/clav and TMP/SMX. Patient has known bone exposure and his esthetician/owner prepped him for the fact that it may need to come off. Review of Systems - all systems reviewed and negative unless stated in the HPI. 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 Family History Problem Relation Age [...] 05/09/2025 BILIDIRECT 0.1 05/09/2025 Microbiology: (personally reviewed) [facility] - called micro to get results 05/02/25 [...] pneumo ag neg Imagin05/06/25 - CT chest ([facility]) - unable to see images - potential infected LLL bulla is once again noted. Impression: no significant chagne in lung findings compared to the prior study from 05/04/25. Bibasilar consolidations with potential infected bullae involving the LLL persists Impression: 85 y.o. male with CAD, PAD s/p SFA-peroneal bypass 02/2025, HTN, HLD, BPH, A fib, CKD3a transferred from [facility] with PNA and hemoptysis. Need full records and images brought over from [facility] to review. Initial sputum culture with pneumococcus with surprising MICs. Has been on amox/clav and TMP/SMX asan outpatient for his toe. Has exposed bone [...] patient history assessments, advanced diagnostic evaluations, and collaborationwith public health agencies for contact tracing and [...] page the on-call ID/1st call Fellow pager. [facility] - [facility] System-Wide Infectious Disease - Paola Cordova MD Veterinary Attendantlive ammunition inspector Division of Infectious Diseases Pager #[phone] [1] Past Medical History: Diagnosis Date Arthritis [...] prostate [3] Allergies Allergen Reactions Gabapentin [facility] Work Phone: [phone]) 420-294809-12-2025 Nurse Note* Nursing Notes - Rajiv Page RN - 05/09/2025 9:41 AM EDT Images from the original note were not included. WOC/ET Nursing Consult/Evaluation Note Evaluated Tristin Bazan Sherry [facility] for chronic arterial ulceration to the right [...] Assessed: 05/09/25940 Primary Wound Type: Vascular Ulcer SecondaryWound Type - Vascular Ulcer: Arterial Present on [...] notified of assessment and plan. Please page #[phone] or reconsult with any further needs. [facility]09-12[facility] Hospital Discharge instructions* Discharge Instructions* Rafaela Garcia MD - 05/09/2025 8:56 AM EDT Discharge instructions from your inpatient doctor, Rafaela Garcia MD, and team You were admitted to the hospital for coughing up blood. While you were here, you were seen by pulmonary and infectious disease and you received steroids and completed your antibiotics. After discharge, please do the following: Please follow-up with your local consumer banker in 4-6 weeks and get a repeat CT chest at the time of follow-up. Please review the first page of your after-visit summary for a detailed list of medication changes,follow-up instructions and scheduled appointments. Please note that not all appointments will be set up on discharge per case management policy. Please check your my chart if needed and follow up with your appointments if you do not receive a call. If you have any questions after your discharge, please call our office at [phone] or your floor and one of our nurses will call you back. Division of Hospital Medicine [phone] Patient Experience Survey Reminder You may receive a survey in the mail within a few weeks regarding your hospitalization. This helps us to improve the care and services we provide at [facility]. We truly appreciate you taking the time to fill this out. We particularly welcome any specific comments you may have (good or bad!) regarding [facility] so that we may use them to continue to strive towards excellence for our patients. * Attachments The following attachments cannot be sent through Care Everywhere. * Blood Thinners: How to Prevent Bleeding ([facility]) (Vietnamese) documented in this encounterOS[facility]09-[facility]25 Hospital Discharge instructions* Discharge Instructions* Rafaela Garcia MD - 05/09/2025 8:56 AM EDT Discharge instructions from your inpatient doctor, Rafaela Garcia MD, and team You were admitted to the hospital for coughing up blood. While you were here, you were seen by pulmonary and infectious disease and you received steroids and completed your antibiotics. After discharge, please do the following: Please follow-up with your local consumer banker in 4-6 weeks and get a repeat CT chest at the time of follow-up. Please review the first page of your after-visit summary for a detailed list of medication changes,follow-up instructions and scheduled appointments. Please note that not all appointments will be set up on discharge per case management policy. Please check your my chart if needed and follow up with your appointments if you do not receive a call. If you have any questions after your discharge, please call our office at [phone] or your floor and one of our nurses will call you back. Division of Hospital Medicine [phone] Patient Experience Survey Reminder You may receive a survey in the mail within a few weeks regarding your hospitalization. This helps us to improve the care and services we provide at [facility]. We truly appreciate you taking the time to fill this out. We particularly welcome any specific comments you may have (good or bad!) regarding [facility] so that we may use them to continue to strive towards excellence for our patients. * Attachments The following attachments cannot be sent through Care Everywhere. * Blood Thinners: How to Prevent Bleeding ([facility]) (Vietnamese) documented in this encounterOSU [facility]09-12-2025 Plan of care note* Plan of Care - Deena Jacobs OT - 05/09/2025 8:37 AM EDT Problem: OT - ADLs Goal: Lower Body Dressing - Patient will complete lower body dressing tasks with independence usingadaptive equipment/compensatory strategies as needed for improved ability [...] - Patient will transfer to/from toilet/bedside commode withindependence for improved ability to safely complete ADLs. [...] with minimal cues for accuracy. Outcome: Ong[facility]ing [facility]09-12-2025 Plan of care note* Plan of Care - Amairani Anaya, ABBI - 05/09/2025 8:36 AM EDT Problem: PT - General Goals Goal: [...] feet with independence and least restrictive device toimprove ability to safely navigate home and community. Outcome: Ongoing Goal: Stairs - Patient will ascend/descend 1 stairs with independence, least restrictive device, and single railing(s) to improve ability to safely navigate home and community. Outcome: Ongoing Goal: Strength - Patient will demonstrate understanding of exercise program. Outcome: Ongoing [facility]09-[facility] History and physical note* Jose Manuel Pineda MD - 05/09/2025 2:44 AM EDT Hospital Medicine Admission History & Physical Patient: [...] non massive Requiring inhaled TXA TID at [facility]. [facility] patient only producing pink-tinged sputum, no ileana blood. Remains stable on room air. Hgb at [facility] 10- 11. Stable on arrival to [facility] at 10.9 [...] Acute hypoxic resp failure - resolved At [facility] requiring o2. Weaned to room air prior [...] OSH due to hemoptysis. Patient presented to [facility] on 05/02 due to shortness of breath on exertion, chest congestion, nonproductive cough that had been ongoing for about 10 days. He had been diagnosed with bronchitis about 10 days prior to admission to [facility] and had been taking steroids and breathing [...] department by his PCP. On arrival to [facility] ED chest x-ray was notable for hilar vascular c ongestion, bibasilar linear atelectasis and hyperinflation and was admitted for further evaluation and management. Work up at [facility] was remarkable for (+) rhinovirus and a [...] TID. He was evaluated by Pulmonology at [facility] who recommended embolization for management of hemoptysis; procedure not performed by IR there. [facility] for further managementand consideration of embolization. [facility] to [facility] patient is well appearing, on room air. Coughs intermittently during interview.Producing sputum that is pink-tinged; no over blood [...] Surgeon: Isaias Vogt MD; Location: [facility] CARDIAC CATH/EP LAB PERIPHERAL STENT PLACEMENT N/A 08/09/2018 Laterality: N/A; Surgeon: Isaias Vogt MD; Location: [facility] CARDIAC CATH/EP LAB ATHERECTOMY PERIPHERAL N/A 08/09/2018 Laterality: N/A; Surgeon: Isaias Vogt MD; Location: [facility] CARDIAC CATH/EP LAB CORONARY STENT PLACEMENT 2007 x3 total of 7 AMPUTATION front of left toes ANKLE FRACTURE SURGERY Left plate placed in L ankle CORONARY ARTERY BYPASS GRAFT 3 vessel RADIOGRAPHIC/SURGICAL IMPLANT INDEX jul 2010-november 2010 radioactive seeds implanted prostate [3] Allergies Allergen Reactions Gabapentin [facility] History and physical note* Jose Manuel Pineda MD - 05/09/2025 2:44 AM EDT Hospital Medicine Admission History & Physical Patient: [...] non massive Requiring inhaled TXA TID at [facility]. [facility] patient only producing pink-tinged sputum, no ileana blood. Remains stable on room air. Hgb at [facility] 10- 11. Stable on [facility] at 10.9 [...] Acute hypoxic resp failure - resolved At [facility] requiring o2. Weaned to room air prior to [facility] PAD s/ SFA-peroneal bypass 02/2025 Chronic R [...] Complaint Hemoptysis History of Presenting Illness Tristin Hortensia Powell is a 85 y.o. male with a past medical history of CAD x7 stents, PAD s/ SFA-peroneal bypass 02/2025, left metatarsal amputation, chronic R foot ulcer, HTN, HDL, BPH who presents as a transfer from [facility] due to hemoptysis. Patient presented to [facility] on 05/02 due to shortness of breath on exertion, chest congestion, nonproductive cough that had been ongoing for about 10 days. He had been diagnosed with bronchitis about 10 days prior to admission to [facility] and had been taking steroids and breathing [...] department by his PCP. On arrival to [facility] ED chest x-ray was notable for hilar vascular c ongestion, bibasilar linear atelectasis and hyperinflation and was admitted for further evaluation and management. Work up at [facility] was remarkable for (+) rhinovirus and a [...] TID. He was evaluated by Pulmonology at [facility] who recommended embolization for management of hemoptysis; procedure not performed by IR there. [facility] for further managementand consideration of embolization. [facility] to [facility] patient is well appearing, on room air. Coughs intermittently during interview.Producing sputum that is pink-tinged; no over blood [...] Allergies Allergen Reactions Gabapentin documented in this encounterOS[facility]09[facility] History and physical note* Jose Manuel Pineda MD - 05/09/2025 2:44 AM EDT Hospital Medicine Admission History & Physical Patient: [...] non massive Requiring inhaled TXA TID at [facility]. [facility] patient only producing pink-tinged sputum, no lieana blood. Remains stable on room air. Hgb at [facility] 10- 11. Stable on arrival to [facility] at 10.9 [...] Acute hypoxic resp failure - resolved At [facility] requiring o2. Weaned to room air prior [...] OS due to hemoptysis. Patient presented to [facility] on 05/02 due to shortness of breath on exertion, chest congestion, nonproductive cough that had been ongoing for about 10 days. He had been diagnosed with bronchitis about 10 days prior to admission to [facility] and had been taking steroids and breathing [...] department by his PCP. On arrival to [facility] ED chest x-ray was notable for hilar vascular c ongestion, bibasilar linear atelectasis and hyperinflation and was admitted for further evaluation and management. Work up at [facility] was remarkable for (+) rhinovirus and a [...] TID. He was evaluated by Pulmonology at [facility] who recommended embolization for management of hemoptysis; procedure not performed by IR there. [facility] for further managementand consideration of embolization. Upon arrival to [facility] patient is well appearing, on room air. Coughs intermittently during interview.Producing sputum that is pink-tinged; no over blood [...] Allergies Allergen Reactions Gabapentin documented in this encounterOSU [facility]09-[facility] History of Present illness Narrative* LEONARDA Villavicencio - 05/02/2025 1:00 PM EDT Images from the original note were not included. Subjective Patient ID: Tristin Powell is a 85 y.o. male who presents for [facility] ER follow up. Flowsheet Row Patient Outreach from 05/01/2025 in [facility] with Elaine Saab LPN [facility] Information ED, Hospital or Assisted Facility Discharge? ED Patient has been contacted within 2 days of being seen in the ED Yes Diagnosis Acute bronchitis, mild COPD exacerbation Discharge Date 04/30/25 Discharged To: Home Setting Discharge Hospital [facility] Engagement Call Start Time 1124 Admission Date [...] Carotid artery disease Cataract 2014 Cellulitis 01/19/[address] [facility] Cellulitis LLE Colon polyps 2012 Critical lower limb ischemia ([facility]) 09/04/2018 Last Assessment & Plan: Pt s/p LLE angiogram with Dr Hahn who feels that the pt has no further endovascular options. He has consulted Dr. Sarabia for a possible tibial bypass. Pt s/p LLE critical limb ischemia [place] class 4 rest pain with distal discoloration to histoes Gangrene of left foot (HCC) 10/04/2018 Groin hematoma 2014 RT Femoral groin Hematoma H/O myocardial perfusion scan 07/09/2019 LVEF 56% Myocardial perfusion imaging shows a defect in Apical wall Herpes zoster 09/04/2011 History of being hospitalized 12/06/2020 Strep Pneumonia, Resp. 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 Rowe at [facility] COLONOSCOPY W/ POLYPECTOMY 2011 CORONARY [...] agrees that he needs to be in ahospital and agrees to go back to [facility] for further evaluation. His brother will take him directly. Follow up for ER follow up. documented in this encounterWright Memorial [id number] Telephone encounter Note* Telephone Encounter - LEONARDA Villavicencio - 04/29/2025 9:54 PM EDT Metoprolol sent. [facility] [id number] Miscellaneous Notes* Telephone Encounter - LEONARDA Villavicencio - 04/29/2025 9:54 PM EDT Metoprolol sent. documented in this [facility]08-27-2025 NoteI saw Mr. Powell in office today for [...] wound care under the care of a esthetician/owner. He is on his ASA, xarelto and [...] home. AUTHENTICATED BY MOHSEN SARABIA, ON 04/23/2025 15:06:32[facility] [id number] History of Present illness Narrative* Mohsen Sarabia MD - 04/23/2025 3:00 PM EDT I saw Mr. Powell in office today [...] wound care under the care of a esthetician/owner. He is on his ASA, xarelto and [...] done close to home. documented in this [id number] Telephone encounter Note* Telephone Encounter - Flash Lovelace MD - 04/21/2025 1:31 PM EDT Patient requests Zofran refilled [facility] [id number] Miscellaneous Notes* Telephone Encounter - Flash Lovelace MD - 04/21/2025 1:31 PM EDT Patient requests Zofran refilled documented in this encounterNOEllett Memorial [id number] History of Present illness Narrative* Flash Lovelace MD - 04/14/2025 1:45 PM EDTAssociated Problem(s): Osteomyelitis of right foot (HCC) Will get stat MRI Will do stat Podiatry referral If worsens go to ER Currently no drainage * Flash Lovelace MD - 04/14/2025 1:37 PM EDTAssociated Problem(s): Ischemic toe ulcer, right, with 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) Needs to finish antibiotic and needs follow up with podiatry * Flash Lovelace MD - 04/14/2025 1:37 PM EDTAssociated Problem(s): PVD (peripheral vascular disease) with claudication Needs follow up with Vascular surgeon * Flash Lovelace MD - 04/14/2025 1:30 PM EDT Images [...] of bone of hip ([facility]) 09/04/2011 Right hip Right hip CAD (coronary artery disease) 2013 Carotid artery disease Cataract 2014 Cellulitis 01/19/[address] [facility] Cellulitis LLE Colon polyps 2012 Critical lower limb ischemia ([facility]) 09/04/2018 Last Assessment & Plan: Pt s/p LLE angiogram with Dr Hahn who feels that the pt has no further endovascular options. He has consulted Dr. Sarabia for a possible tibial bypass. Pt s/p LLE critical limb ischemia [place] class 4 rest pain with distal discoloration to histoes Gangrene of left foot ([facility]) 10/04/2018 Groin hematoma 2013 RT Femoral groin Hematoma H/O myocardial perfusion scan 07/09/2019 LVEF 56% Myocardial perfusion imaging shows a defect in Apical wall Herpes zoster 09/04/2011 History of being hospitalized 12/06/2020 Strep Pneumonia, Resp. Failure - [facility] History of being hospitalized [place] [facility] 07/15/2021-07/16/2021 History of coronary angiogram [...] incomplete bowel prep Diverticulosis Dr. Rowe at [facility] COLONOSCOPY W/ POLYPECTOMY 2011 CORONARY [...] No follow-ups on file. documented in this encounterWright Memorial [id number] Telephone encounter Note* Telephone Encounter - LEONARDA Villavicencio - 04/09/2025 1:16 PM EDT The incorrect test was run through [facility]. [...] ran in error. Spoke with Deena at [facility]. Wright Memorial [id number] Miscellaneous Notes* Telephone Encounter - LEONARDA Villavicencio - 04/09/2025 1:16 PM EDT The incorrect test was run through [facility]. [...] ran in error. Spoke with Deena at [facility]. documented in this encounterWright Memorial [id number] History of Present illness Narrative* LEONARDA Villavicencio - 04/08/2025 11:30 AM EDT [...] Carotid artery disease Cataract 2014 Cellulitis 01/19/[address] [facility] Cellulitis LLE Colon polyps 2012 Critical lower limb ischemia ([facility]) 09/04/2018 Last Assessment & Plan: Pt s/p LLE angiogram with Dr Hahn who feels that the pt has no further endovascular options. He has consulted Dr. Sarabia for a possible tibial bypass. Pt s/p LLE critical limb ischemia [place] class 4 rest pain with distal discoloration to histoes Gangrene of left foot (HCC) 10/04/2018 Groin hematoma 2014 RT Femoral groin Hematoma H/O myocardial perfusion scan 07/09/2019 LVEF 56% Myocardial perfusion imaging shows a defect in Apical wall Herpes zoster 09/04/2011 History of being hospitalized 12/06/2020 Strep Pneumonia, Resp. Failure - [facility] History of being hospitalized [place] [facility] 07/15/2021-07/16/2021 History of coronary angiogram [...] incomplete bowel prep Diverticulosis Dr. Rowe at [facility] COLONOSCOPY W/ POLYPECTOMY 2011 CORONARY [...] for Medication Follow Up. documented in this encounterWright Memorial [id number] NoteI saw Mr. Powell today in office for [...] OMT. AUTHENTICATED BY MOHSEN SARABIA, ON 04/02/2025 12:15:56[facility]08-06-2025 History of Present illness Narrative* Mohsen Sarabia MD - 04/02/2025 12:11 PM EDT I saw Mr. Powell today in office for a postoperative follow-up visit. He is an 85-year-old gentleman well-known to me in whom I recently did a right SFA to peroneal bypass using left cephalic vein. This was performed for chronic limb threatening ischemia with early ischemic changes to the hallux. Hispostoperative course was uncomplicated and he is pleased [...] foot care and OMT. documented in this [id number] History of Present illness Narrative* Flash Lovelace MD - 03/31/2025 1:45 PM EDT Images from the original note were not included. Subjective Patient ID: Trsitin Powell is a 85 y.o. male who [...] 03/21/25 Discharged To: Home Setting Discharge Hospital [facility] Engagement Call Start Time 1226 Admission Date [...] yes What is the home health agency? [facility] Has home health visited the patient [...] had recent balloon angioplasty 03/12/2025,. presented to [facility] ED on 03/14/2025 from Vascular Surgery clinic [...] Carotid artery disease Cataract 2014 Cellulitis 01/19/[address] [facility] Cellulitis LLE Colon polyps 2012 Critical lower limb ischemia ([facility]) 09/04/2018 Last Assessment & Plan: Pt s/p LLE angiogram with Dr Hahn who feels that the pt has no further endovascular options. He has consulted Dr. Sarabia for a possible tibial bypass. Pt s/p LLE critical limb ischemia [place] class 4 rest pain with distal discoloration to histoes Gangrene of left foot ([facility]) 10/04/2018 Groin hematoma 2013 RT Femoral groin Hematoma H/O myocardial perfusion scan 07/09/2019 LVEF 56% Myocardial perfusion imaging shows a defect in Apical wall Herpes zoster 09/04/2011 History of being hospitalized 12/06/2020 Strep Pneumonia, Resp. Failure - [facility] History of being hospitalized [place] [facility] 07/15/2021-07/16/2021 History of coronary angiogram [...] incomplete bowel prep Diverticulosis Dr. Rowe at [facility] COLONOSCOPY W/ POLYPECTOMY 2011 CORONARY [...] (around 07/01/2025) for Recheck, pain med f/u. * Flash Lovelace MD - 03/31/2025 1:43 PM EDTAssociated Problem(s): PVD (peripheral vascular disease) [...] reviewed for this patient. documented in this encounterWright Memorial [id number] History of Present illness Narrative* Froylan Higgins - 03/21/2025 4:00 PM EDT Spiritual Care Progress Note Completed by: Froylan Higgins Person(s) Present During this Visit: Patient Time Spent in Direct Patient Care: 30 Narrative: This Media Relations Coordinator visited Tristin while rounding. Pt identifies as nondenominational and finds hope/support in family. Media Relations Coordinator provided empathetic listening with supportive presence and compassionate care. Pt shared a narrative of illness and some life experiences. Pt expressed gratitude for layer off's support and visit. Pt was informed about 20/03 availability of the Chaplains, and how to contact. Pastoral Care Team will remain available to provide emotional and spiritual care support PRN. Patients Response to Pastoral Care: Expressed Gratitude for Visit, Appeared to be well-engaged Planning for Future Visits: PRN Patient's Spiritual Needs Assessment 03/21/25 1600 Visit Background Visit With Patient Visit By Staff Media Relations Coordinator Visit Progression Introduction Visit Requested By Media Relations Coordinator Initiated Visit Source Media Relations Coordinator Initiated Visit Type Inpatient;Rounding Visit Circumstances and Events Routine Visit Visit Length (minutes) 30 Patient's Response to Pastoral Care Expressed Gratitude for Visit;Appeared to be well-engaged Visit Planning PRN Spiritual Assessment Assessed during this visit Christianity Assessment Assessed during this visit Family assessment provided? Unable to asess during this visit Patient Spiritual Needs Assessment Sources of Connection Son;Daughter;Other (see comment) (family) Belief Practices Attends Christianity Services Image of the Divine Answers Prayer;Comforter;Creator;Healer;Guide;Love;Listens Role of the Divine in Pt's Illness [...] of Care Focus on Wellness;Receive Comfort Patient Christianity Needs Assessment Christianity Connection Attends as Often as Able Christianity Home Adventist Latter-Day Connection Non-Latter-Day Place of Religious - Name [facility] [place] Christianity Resources Hope/Trust in God;Prayer Christianity Rituals [place];Prayer Expressed Outcome Expressed Gratitude;Expressed Hope Rev. Froylan Higgins MBA., Josephine, M.Div Staff Media Relations Coordinator, Pastoral Care [address] [address] * Jagruti Mooney PTA - 03/21/2025 12:21 PM EDT Physical Therapy PHYSICAL THERAPY TREATMENT NOTE Skilled Therapy Needs After Discharge Anticipate Resolution of Current Assessment Limitations Including: Pain, Mechanical Barriers Are cause analyst Therapy Services Needed After Discharge: Yes Intensity of cause analyst Therapy: Up to 5 days per week Anticipated Duration of cause analyst Therapy: Duration 7 - 10 days PT [...] activity tolerance, improved awareness, improved balance reactions, improvedfunctional independence, improved initiation, improved performance, decreased assistance required, decreased fall risk, decreased pain Standing Balance - Static: Contact guard assist, with device Oxyacetylene Welder - Standing Static: wheeled walker Standing Balance - Dynamic: Contact guard assist, with device Oxyacetylene Welder - Standing Dynamic: wheeled walker Skilled Intervention Provided: verbal cues, tactile cues, facilitation, patient education For: energy conservation, efficient movement, postural alignment, safe use of AD and/or equipment, sequencing of movement, weight shifting Resulting in: improved activity tolerance, improved awareness, improved balance reactions, improvedfunctional independence, improved initiation, improved performance, improved safety, decreased fallrisk, decreased pain, decreased reliance on device/support, reduced risk of secondary impairment(s) Bed Mobility Rolling: Supervision, Head of bed elevated Supine to Sit: Stand by assist, Head of bed elevated Sit to Supine: (Seated EOB post session with nursing notified) Oxyacetylene Welder: bedrails, bed positioning mechanics Skilled Intervention Provided: [...] Lateral Transfers: Contact guard assist, Minimal assist Oxyacetylene Welder: wheeled walker Skilled Intervention Provided: verbal cues, tactile cues, demonstration, facilitation, monitoring patient response with activity, monitoring patient response with positional changes, provided step bystep instructions, patient education For: LE positioning, UE [...] secondary impairment(s) Car Transfers: Contact guard assist Oxyacetylene Welder: wheeled walker Skilled Intervention Provided: verbal cues, tactile cues, demonstration, facilitation, monitoring patient response with activity, monitoring patient response with positional changes, provided step bystep instructions, patient education For: LE management, LE positioning, UE positioning, controlled descent, energy conservation, postural alignment, safety during functional tasks, safe use of AD and/or equipment, sequencing of movement, weight shifting Resulting in: improved activity tolerance, improved balance, improved functional independence, improved performance, improved safety, decreased assistance required, decreased pain, decreased relianceon device/support, reduced risk of secondary impairment(s) Gait/Locomotion [...] of device, efficient movement, fall prevention, gait technique,improved posture, obstacle negotiation, proper body mechanics, weight [...] walker.) Prior Level of Function Level of [place] - Transfers/Ambulation/Mobility: Independent with functional transfers Level of [place] - ADLs: Independent Level of [place] - Homemaking: Independent Driving: Patient drives Vocational: [...] Lopez PT at 03/21/2025 2:03 PM EDT * Richie Harrison RN - 03/21/2025 8:56 AM EDT Care Management Progress Note Date: 03/21/2025 [...] originally wanted to go home with [facility]. After discussion withattending physician, now open to snf placement. Patient walking 20 feet. Will obtain choices and send referrals. Patient will need precert once med ready. Patient nearing med readiness. If unable to secure SNF will plan for home going plan with [facility], will place hub order for therapy. Will continue to follow as patient progresses medically. Addendum [phone]: hub order placed for [facility] therapy. One accepted, likely plan for discharge later todayonce [facility] accepted. Addendum 1551: patient now wanting OP therapy. Order placed, and updated liaison to cancel [facility] order. Patient now med ready for discharge. Assessment and Background Information: * Darius Sultana - 03/20/2025 3:43 PM EDT Physical Therapy PHYSICAL THERAPY TREATMENT NOTE Skilled Therapy Needs After Discharge Anticipate Resolution of Current Assessment Limitations Including: Pain, Mechanical Barriers Are cause analyst Therapy Services Needed After Discharge: Yes Intensity of cause analyst Therapy: Up to 5 days per week Anticipated Duration of cause analyst Therapy: Duration 7 - 10 days PT [...] - Static: Contact guard assist, Minimal assist Oxyacetylene Welder - Standing Static: wheeled walker Standing Balance - Dynamic: Contact guard assist, Minimal assist Oxyacetylene Welder - Standing Dynamic: wheeled walker Skilled Intervention [...] to Supine: (Pt ended session in recliner) Oxyacetylene Welder: bedrails, bed positioning mechanics Transfers Sit to Stand: Moderate assist, 2 person assist (x1 from bed, x1 from toilet, x1 from recliner) Stand Pivot Transfers: Minimal assist Oxyacetylene Welder: wheeled walker Skilled Intervention Provided: verbal cues, [...] walker.) Prior Level of Function Level of [place] - Transfers/Ambulation/Mobility: Independent with functional transfers Level of [place] - ADLs: Independent Level of [place] - Homemaking: Independent Driving: Patient drives Vocational: [...] Lopez PT at 03/21/2025 12:32 PM EDT * Uri Voss DO - 03/20/2025 8:03 AM EDT [facility] Inpatient Progress Note 03/20/2025 Tristin Powell 1940 [id number] Assessment/Plan: Tristin Powell is a 85 y.o. male with a history of Peripheral Artery Disease s/p Bypass, Afib (Xarelto), Diastolic Heart Failure, Coronary Artery Disease s/p CABG, recent balloon angioplasty 03/12/2025,. presented to [facility] ED on 03/14/2025 from Vascular Surgery clinic with intractable right foot pain. Found to have critical right LE ischemia Critical right lower limb ischemia: History of PAD. Follows Dr. Beaver ([facility]) and Dr. Sarabia (Vascular Surgery) s/p left femoral to peroneal bypass using contralateralreverse greater saphenous vein and partial left foot [...] 03/20/25 ordered. [facility] followcarmen patel. Acute on Chronic Pain Syndrome: with opiate dependence. Continued home Percocet with increased dose. S/p IV pain meds. CAD: Followed by [facility] Card[facility] s/p 3 vessel coronary artery [...] xarelto Medication Reconciliation: Reviewed using patient interview, pathological technician Current living situation: home Expected Disposition: PT/OT rec up to , SW following. Estimated discharge date: TBD pending placement Medically Ready for Discharge: no Subjective: Pt seen at bedside vitals reviewed. No acute events overnight. Doing well this morning. Pt still feeling weak and ongoing drowsiness. Will stop muscle relaxant to see if that helps. Discussed with ptand son bedside about dispo. He lives with [...] major joint deformity: RLE tired leg and table tender sludge to touch. Moving well withmild pain.: Decreased sensation in the foot. Warm. [...] 03/16/25 0907 03/14/25 1128 INR 1.1 1.1 * Trev Coleman MD - 03/20/2025 7:03 AM EDT VASCULAR SURGERY PROGRESS NOTE Patient Name: Tristin [...] (2018, [place]), left TMA who presented to [facility] on 03/14/2025 with worsening RLE [...] TREV COLEMAN MD General Surgery Resident, PGY-[address] [facility] Please contact surgical internal control analyst site damage prevention technician 5PM-6AM and weekends - #[phone] VTS Pager - #[phone] Subjective NAEO. Has been ambulating. New bruising [...] IMAGING/LABS Interval imaging and laboratory results reviewed * Uri Voss DO - 03/19/2025 8:02 AM EDT [facility] Inpatient Progress Note 03/19/2025 Tristin Powell 1940 [id number] Assessment/Plan: Tristin Poewll is a 85 y.o. male with a history of Peripheral Artery Disease s/p Bypass, Afib (Xarelto), Diastolic Heart Failure, Coronary Artery Disease s/p CABG, recent balloon angioplasty 03/12/2025,. presented to [facility] ED on 03/14/2025 from Vascular Surgery clinic with intractable right foot pain. Found to have critical right LE ischemia Critical right lower limb ischemia: History of PAD. Follows Dr. Beaver ([facility]) and Dr. Sarabia (Vascular Surgery) s/p left femoral to peroneal bypass using contralateralreverse greater saphenous vein and partial left foot [...] timing TBD. [facility] lorena cabrera. Acute on Chronic Pain Syndrome: with opiate dependence. Continued home Percocet with increased dose. IV Dilaudid added, wean as able. CAD: Followed by [facility] Cardiology s/p 3 vessel coronary artery [...] xarelto Medication Reconciliation: Reviewed using patient interview, pathological technician Current living situation: home Expected Disposition: PT/OT rec up to 5 pt requesting home with [facility], SW following. Estimated discharge date: ~03/20/2025 [...] major joint deformity: RLE tired leg and table tender sludge to touch. Moving well withmild pain.: Decreased sensation in the foot. Warm. [...] 03/16/25 0907 03/14/25 1128 INR 1.1 1.1 * Trev Coleman MD - 03/19/2025 7:03 AM EDT VASCULAR SURGERY PROGRESS NOTE Patient Name: Tristin [...] (2019, [place]), left TMA who presented to [facility] on 03/14/2025 with worsening RLE [...] TREV COLEMAN MD General Surgery Resident, PGY-[address] [facility] Please contact surgical internal control analyst site damage prevention technician 5PM-6AM and weekends - #[phone] VTS Pager - #[phone] Subjective NAEO. Was able to get up [...] IMAGING/LABS Interval imaging and laboratory results reviewed * Marichuy Hercules RN - 03/18/2025 11:28 AM EDT Anesthesia Progress Note 1 Day Post-Op Procedure(s): RIGHT FEMORAL TO TIBIAL BYPASS WITH ARM VEIN. Angiogram Assessment / Plan Comment: In no acute distress. Awake and alert. Denies post-op nausea, vomiting or sore throat. Questions addressed. Temp: [36.4 C-37.7 C] 36.8 C Heart Rate: [64-91] 86 Resp: [11-24] 18 BP: (120-166)/(46-88) 136/56 Arterial Line BP: (107-182)/(32-61) 127/36 SpO2: [96 %-100 %] 98 % * Izabel Lezama, PT - 03/18/2025 10:04 AM EDT Physical Therapy PHYSICAL THERAPY RE-EVALUATION and TREATMENT [...] Limitations Including: Mechanical Barriers, Social Support Are cause analyst Therapy Services Needed After Discharge: Yes Intensity of cause analyst Therapy: Up to 5 days per week Anticipated Duration of cause analyst Therapy: Duration 10 - 30 days PT [...] Supine: Minimal assist, Head of bed flat Oxyacetylene Welder: bedrails, patient slide sheet / friction-reducing device, [...] walker.) Prior Level of Function Level of [place] - Transfers/Ambulation/Mobility: Independent with community ambulation, Independent with household ambulation, Independent with functional transfers Level of [place] - ADLs: Independent Level of [place] - Homemaking: Independent Driving: Patient drives Vocational: Retired PHYSICAL THERAPY TREATMENT NOTE Total Treatment Time (Total Session Time): 20 Minutes Total Timed Code Treatment Minutes: 10 Minutes Neuromuscular Reeducation Sitting Balance Treatment: weight shifting anterior, weight shifting posterior, maintaining midlineorientation, upright gaze (attempts at scooting) Skilled Intervention Provided: verbal cues, tactile cues, environmental setup/modification, patienteducation For: attention to task, UE positioning, efficient [...] frequency of exercise(s), efficient movement, energy conservation, posturalalignment, midline orientation Resulting in: improved initiation, improved safety, improved performance Additional Treatment Details Pt cooperative but hesitant to mobility d/t RLE pain. Discussed benefits of therapy and progession of rehab post sx. VSS on room air. Pt able to tolerate sitting EOB ~10 mins, however, when preparingto stand with walker, pt declining to progress stating his pain was too bad. Pt also unable to scoot laterally d/t pain in RLE. Past Medical History: Diagnosis Date Arthritis Avascular necrosis of bone of hip ([facility]) Claudication COPD (chronic obstructive pulmonary disease) ([facility]) Coronary artery disease Herpes zoster Hyperlipidemia Hypertension PAD (peripheral artery disease) ([facility]) 01/21/2022 Posterior tibial tendinitis of right leg 11/07/2022 Prostate cancer ([facility]) Vascular disease Past Surgical History: Procedure Laterality Date 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/08/2018 Procedure: LEFT MIDFOOT AMPUTATION; Surgeon: Flynn Mann DPM; Location: [facility] OR; Service: Podiatry ANKLE SURGERY Left BYPASS FEMOROTIBIAL REPAIR/GRAFT Right 03/17/2025 Procedure: RIGHT FEMORAL TO TIBIAL BYPASS WITH ARM VEIN. Angiogram; Surgeon: Mohsen Sarabia MD; Location: [facility] NEURO OR; Service: Gen-Vascular; Laterality: Right; BYPASS PERONEAL FEMORAL Right 09/07/2018 Procedure: BYPASS PERONEAL FEMORAL, RIGHT SAPHENOUS VEIN HARVEST, COMPLETION ANGIOGRAM; Surgeon: Mohsen Sarabia MD; Location: [facility] NEURO OR; Service: Cardiovascular CARDIAC CATHETERIZATION Left 09/05/2018 Procedure: Angio Lower Extremity; Surgeon: Ben Hahn MD; Location: [facility] 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; Service: Cardiovascular CARDIAC SURGERY 2017 triple bypass EGD N/A 10/10/2018 Procedure: ESOPHAGOGASTRODUODENOSCOPY; Surgeon: Ben Jensen MD; Location: [facility]; Service: Gastroenterology EYE SURGERY Right 2014 [...] or completion of Physical Therapy Plan. * Uri Voss DO - 03/18/2025 8:14 AM EDT [facility] Inpatient Progress Note 03/18/2025 Tristin Hortensia Sherry 1940 [id number] Assessment/Plan: Tristin Powell is a 85 y.o. male with a history of Peripheral Artery Disease s/p Bypass, Afib (Xarelto), Diastolic Heart Failure, Coronary Artery Disease s/p CABG, recent balloon angioplasty 03/12/2025,. presented to [facility] ED on 03/14/2025 from Vascular Surgery clinic with intractable right foot pain. Found to have critical right LE ischemia Critical right lower limb ischemia: History of PAD. Follows Dr. Beaver ([facility]) and Dr. Sarabia (Vascular Surgery) s/p left femoral to peroneal bypass using contralateralreverse greater saphenous vein and partial left foot [...] dose. IV Dilaudid added. CAD: Followed by [facility] Cardiology s/p 3 vessel coronary artery [...] per Medication Reconciliation: Reviewed using patient interview, pathological technician Current living situation: home Expected Disposition: [...] major joint deformity: RLE tired leg and table tender sludge to touch. Moving well withmild pain.: Decreased sensation in the foot. Warm. [...] 03/16/25 0907 03/14/25 1128 INR 1.1 1.1 * Yanira Diaz LO - 03/18/2025 7:13 AM EDT [employer] NOTE Rooke boots Item not provided by [facility] staff. Obtain from [employer], nursing to place * Trev Coleman MD - 03/18/2025 6:26 AM EDT VASCULAR SURGERY PROGRESS NOTE Patient Name: Tristin [...] Walker), left TMA who presented to [facility] on 03/14/2025 with worsening RLE [...] TREV COLEMAN MD General Surgery Resident, PGY-[address] [facility] Please contact surgical internal control analyst site damage prevention technician 5PM-6AM and weekends - #[phone] VTS Pager - #[phone] Subjective NAEO. Feels good this morning. Wants [...] IMAGING/LABS Interval imaging and laboratory results reviewed * Abi Walker MD - 03/17/2025 9:53 PM EDT VASCULAR SURGERY PROGRESS NOTE Patient Name: Tristin [...] (Jony, Cornell), left TMA who presented to [facility] on 03/14/2025 with worsening RLE [...] Walker MD General Surgery Please contact surgical internal control analyst site damage prevention technician 5PM-6AM and weekends VTS Pager - #[phone] SUBJECTIVE Patient is resting in bed with LUE elevated. Reports some pain at his right hip. Denies Numbness ortingling in his lower extremity. Denies nausea or [...] below. Please correlate with formal radiology reads. * Iva Day RN - 03/17/2025 10:23 AM EDT Care Management Progress Note Date: 03/17/2025 Time: [...] medical plan evolves. Assessment and Background Information: * Ana Luisa Murray MD - 03/17/2025 7:58 AM EDT [facility] Inpatient Progress Note 03/17/2025 Tristin Powell 1940 [id number] Assessment/Plan: Tristin Powell is a 85 y.o. male with a history of Peripheral Artery Disease s/p Bypass, Afib (Xarelto), Diastolic Heart Failure, Coronary Artery Disease s/p CABG, recent balloon angioplasty 03/12/2025,. presented to [facility] ED on 03/14/2025 from Vascular Surgery clinic with intractable right foot pain. Found to have critical right LE ischemia Critical right lower limb ischemia: History of PAD. Follows Dr. Beaver ([facility]) and Dr. Sarabia (Vascular Surgery) s/p left femoral to peroneal bypass using contralateralreverse greater saphenous vein and partial left foot [...] dose. IV Dilaudid added. CAD: Followed by [facility] s/p 3 vessel coronary artery [...] per Medication Reconciliation: Reviewed using patient interview, pathological technician Current living situation: home Expected Disposition: [...] major joint deformity: RLE tired leg and table tender sludge to touch. Moving well withmild pain.: Decreased sensation in the foot. Warm. [...] 03/16/25 0907 03/14/25 1128 INR 1.1 1.1 * Yanira Diaz LO - 03/17/2025 7:23 AM EDT ORTHO SOFT GOODS NOTE Heel/Rooke boot Item not provided by [facility] staff. Obtain from [employer], nursing to place * Beena Barraza MD - 03/16/2025 11:00 AM EDT VASCULAR SURGERY PROGRESS NOTE Patient Name: Tristin [...] Walker), left TMA who presented to [facility] on 03/14/2025 with worsening RLE [...] Beena Barraza MD General Surgery Resident, PGY-[address] [facility] Please contact surgical internal control analyst site damage prevention technician 5PM-6AM and weekends - #[phone] VTS Pager - #[phone] Subjective NAEO. Is ready for surgery tomorrow, [...] IMAGING/LABS Interval imaging and laboratory results reviewed * Mary Mast MD - 03/16/2025 10:47 AM EDT Endovascular team note: I have seen and examined the patient, reviewed the chart, reviewed both recent and remote angiograms and interventional films from outside through a link that was provided to Demetrice Escobar and , and have discussed the case with the [...] and rubor. 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 Importantly this has been chronic since 2019 on prior angiography. Angioplasty was performedthe right SFA to try to improve geniculate [...] no major progression. Both the patient and sonunderstand the collaborative process on the patient's behalf, and the plan for bypass operation as the best option. * Ana Luisa Murray MD - 03/16/2025 10:32 AM EDT [facility] Inpatient Progress Note 03/16/2025 Tristin Powell 1940 [id number] Assessment/Plan: Tristin Powell is a 85 y.o. male with a history of Peripheral Artery Disease s/p Bypass, Afib (Xarelto), Diastolic Heart Failure, Coronary Artery Disease s/p CABG, Hypertension, CKD III, COPD, ProstateCancer, and Insomnia. Patient had outpatient angiogram 03/12/25 with balloon angioplasty. He presented to [facility] ED on 03/14/2025 from Vascular Surgery clinic with intractable right foot pain. In ED: right YAMILE 0.5; 50-99% stenosis in right mid superficial femoral artery; WBC 3.5. Course prolonged due to need for angiogram and Xarelto washout. Peripheral Artery Disease: Followed by Dr. Beaver ([facility]) and Dr. Sarabia (Vascular [...] additional for acute pain. CAD: Followed by [facility] s/p 3 vessel coronary artery [...] GTT Medication Reconciliation: Reviewed using patient interview, pathological technician Current living situation: home Expected Disposition: physical therapy / occupational therapy pending, SW consulted. Estimated discharge date: 03/18/2025 Medically Ready for Discharge: no - needs revascularization plan *Alonzo (son) updated at bedside 03/15/25 Subjective: Seen at bedside. Reports pain is controlled with medications but without medication that hurts. On heparin GTT. High risk medication. Needs closer monitoring. Possible revascularization proceduretomorrow. Hemoglobin stable at 12. Repeat EKG pending [...] major joint deformity: RLE tired leg and table tender sludge to touch. Moving well withmild pain.: Decreased sensation in the foot. Warm. [...] 03/16/25 0907 03/14/25 1128 INR 1.1 1.1 * Ana Luisa Murray MD - 03/15/2025 9:18 AM EDT [facility] Inpatient Progress Note 03/15/2025 Tristin Powell 1940 [id number] Assessment/Plan: Tristin Hortensia Powell is a 85 y.o. male with a history of Peripheral Artery Disease s/p Bypass, Afib (Xarelto), Diastolic Heart Failure, Coronary Artery Disease s/p CABG, Hypertension, CKD III, COPD, ProstateCancer, and Insomnia. Patient had outpatient angiogram 03/12/25 with balloon angioplasty. He presented to [facility] ED on 03/14/2025 from Vascular Surgery clinic with intractable right foot pain. In ED: right YAMILE 0.5; 50-99% stenosis in right mid superficial femoral artery; WBC 3.5. Course prolonged due to need for angiogram and Xarelto washout. Peripheral Artery Disease: Followed by Dr. Beaver ([facility]) and Dr. Sarabia (Vascular [...] additional for acute pain. CAD: Followed by [facility] s/p 3 vessel coronary artery [...] GTT Medication Reconciliation: Reviewed using patient interview, pathological technician Current living situation: home Expected Disposition: [...] Heparin GTT not needed for PAD but hashistory of A-fib. Heparin GTT started. on heparin [...] major joint deformity: RLE tired leg and table tender sludge to touch. Moving well withmild pain.: Left midfoot amputation Skin: warm, dry, [...] days Lab Units 03/14/25 1128 INR 1.1 * Mirna Fenton CNP - 03/15/2025 9:10 AM EDT Peripheral Vascular Cardiology Inpatient Follow-up Heart & Vascular [facility] 03/15/2025 Mirna Fenton CNP [facility] Patient: Tristin Powell Date of : 1940 (85 y.o.) PCP: Flash Lovelace MD Assessment/Plan: Carotid stenosis, asymptomatic, bilateral Assessment & Plan Asymptomatic. No hx of CVA Non-invasive Studies: Carotid Duplex (04/2024): Left ICA with mild <50% stenosis of heterogenous plaque. Right ICA with moderate 50-69% stenosis of heterogenous plaque Coronary artery disease involving coronary bypass graft of [place] heart without angina pectoris Assessment & Plan S/p 3v CABG in 2017 Asymptomatic Critical lower limb ischemia (HCC) Assessment & Plan Presents from Dr. 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 Plan for RLE angio +/- intervention 03/17/25, [...] Final Result by Interface, Lab Results In [place] [facility] (03/15/2025 0701) Echocardiogram complete w contrast [...] 2 puff 2 puff Inhalation Q4H PRN BonaparteMuna perez MD aluminum-magnesium hydroxide-simethicone (MAALOX PLUS) 200-200-20 mg/5 mL suspension 30 mL 30 mL Oral Q4H PRN Muna Otto MD aspirin EC tablet 81 mg 81 mg Oral Daily Demetrice Escobar, TECHNOLOGY SERVICES MANAGER 81 mg at 03/14/25 170 atorvastatin (LIPITOR) tablet 80 mg 80 mg Oral Nightly BonaparteMuna denise MD 80 mg at 03/14/252109 azelastine (ASTELIN) 137 mcg (0.1 %) nasal spray 1 spray 1 spray Each Nare Daily Muna Otto MD calcium carbonate (TUMS) chewable tablet 500 mg 500 mg Oral Daily PRN Muna Otto MD enoxaparin (LOVENOX) syringe 40 mg 40 mg Subcutaneous Daily BonaparteMuna denise MD furosemide (LASIX) tablet 20 mg 20 mg Oral Every Other Day BonaparteMuna denise MD HYDROmorphone (DILAUDID) injection 0.5 mg 0.5 mg Intravenous Q3H PRN BonaparteMuna perez MD 0.5 mg at 03/14/252109 losartan (COZAAR) tablet 50 mg 50 mg Oral Daily with lunch Muna Otto MD melatonin Tab 5 mg 5 mg Oral Nightly PRN BonaparteMuna perez MD metoprolol tartrate (LOPRESSOR) tablet 50 mg 50 mg Oral BID BonaparteMuna denise MD 50 mg at 03/14/252109 naloxone [...] tablet 40 mg 40 mg Oral Daily BonaparteMuna perez MD polyethylene glycol (MIRALAX) powder 17 [...] Nightly Muna Otto MD 10 mg at 03/14/25 2236 documented in this [id number] NoteMEDONE DISCHARGE SUMMARY Tristin Powell Account: [id number] Admitted: 03/14/2025 Discharge Date/Time: 03/21/25 / 3:57 PM Handoff to PCP Routine hospital follow up Outpatient follow-up with vascular surgery. Continued Xarelto. Clinical Summary Tristin Powell is a 85 y.o. male with a history of Peripheral Artery Disease s/p Bypass, Afib (Xarelto), Diastolic Heart Failure, Coronary Artery Disease s/p CABG, recent balloon angioplasty 03/12/2025,. presented to [facility] ED on 03/14/2025 from Vascular Surgery clinic with intractable right foot pain. Found to have critical right LE ischemia s/p distal SFA to peroneal bypass. Discharged home with outpatient therapy. Critical right lower limb ischemia: History of PAD. Follows Dr. Beaver ([facility]) and Dr. Sarabia (Vascular [...] S/p IV pain meds. CAD: Followed by [facility] s/p 3 vessel coronary artery [...] Medications New Medications Details naloxone 4 mg/actuation [place] Commonly known as: NARCAN Administer 1 spray [...] Reasons: visible water re (more content not included)...[facility]07-25-2025 Hospital course Narrative* Uri Voss, - 03/21/2025 3:45 PM EDT MEDONE DISCHARGE SUMMARY Tristin Powell Account: [id number] Admitted: 03/14/2025 Discharge Date/Time: 03/21/25 3:57 PM Handoff to PCP Routine hospital follow up Outpatient follow-up with vascular surgery. Continued Xarelto. Clinical Summary Tristin Powell is a 85 y.o. male with a history of Peripheral Artery Disease s/p Bypass, Afib (Xarelto), Diastolic Heart Failure, Coronary Artery Disease s/p CABG, recent balloon angioplasty 03/12/2025,. presented to [facility] ED on 03/14/2025 from Vascular Surgery clinic with intractable right foot pain. Found to have critical right LE ischemia s/p distal SFA to peroneal bypass. Discharged home with outpatient therapy. Critical right lower limb ischemia: History of PAD. Follows Dr. Beaver ([facility]) and Dr. Sarabia (Vascular Surgery) s/p left femoral to peroneal bypass using contralateralreverse greater saphenous vein and partial left foot amputation (09/07/2018 - Dr. Sarabia). S/p angiogram 03/12/25 (Dr. Buehrer) with balloon of SFA. Arterial Duplex 03/14/25: [...] S/p IV pain meds. CAD: Followed by [facility] s/p 3 vessel coronary artery [...] Medications New Medications Details naloxone 4 mg/actuation [place] Commonly known as: NARCAN Administer 1 spray [...] Physician(s) Family: Flash Lovelace MD, , Address: [address] [place] [id number] Follow Up: Physicians, [facility] [place] [address] Follow up Thank you for allowing us to participate in your care. Please follow up with your vascular surgery team after discharge. Please call our office with any questions or concerns. OTHER - NOT IN LIST [place] [address] Additional Information: Patient seen and examined day of discharge. For more information regarding patient's care, including complete radiology reports, please contact [facility] at Patient instructions, including activity, were given to the patient/family at discharge. Please seethe After Visit Summary in the medical record for details. Time spent on discharge: > 30 minutes Completed by: Uri Voss DO on 03/21/25, 3:57 PM documented in this [id number] Hospital Discharge instructions * Discharge Instructions* Beena Barraza MD - 03/21/2025 1:12 PM [...] vascular surgery. The groin areas is where thelegs meet the belly and the skin folds [...] shower. Let water run off the incisions. DoNOT scrub your incisions. Do not swim or [...] if you need help quitting smoking: call 5-115-HAAG-NOW (1 -[phone]) or visit Smokefree.gov for more information. Who to Call: [facility] [place] [facility] Please call the office number at [phone] to confirm your follow-up appointment, or if you haveany questions or concerns. documented in this [id number] Consult note* Markel Dubose RN - 03/21/2025 9:32 AM EDTAssociated Order(s): IP CONSULT TO HOME HEALTH HUB HOME HEALTH CARE DISCHARGE PLAN Consulted for [facility] services: PT, OT Agency preference: [place] If discharge needs change, please reach out to liaison assigned on treatment team as hub is not notified of new consults once team is following. Thank you. Patients needing wound care or infusions (IVs or enteral feeds) should not discharge until [facility] is completely set up. AddendUm 1056: Rec'd call from Any, referral accepted. AVS updated. Addendum 5768: Rec'd msg from Richie MARIO, pt elects outpt therapy. [facility] discontinued and updatesent to Any. Is [facility] plan complete or pending? Pt elects outpt tx Name of accepting [facility] agency: [facility] - notified Referrals sent to: (names of agencies) Please be advised that agencies have 24 hours to respond to referrals. [facility] (did not send) [facility] (orders) placed? discontinued Verify demographics (discharge address) [address] [address] [employer] What is the primary phone number? [phone] Who is your primary care physician? Flash [...] arranged at time of discharge, liaison will followup on referral(s) for 24 to 48 hours [...] = Start of Care TCG = Teachable Geoduck Diver [id number] Consult note* Markel Dubose RN - 03/21/2025 9:32 AM EDT Associated Order(s): IP CONSULT TO HOME HEALTH HUB HOME HEALTH CARE DISCHARGE PLAN Consulted for [facility] services: PT, OT Agency preference: [facility] If discharge needs change, please reach out to liaison assigned on treatment team as hub is not notified of new consults once team is following. Thank you. Patients needing wound care or infusions (IVs or enteral feeds) should not discharge until [facility] is completely set up. AddendUm 1059: Rec'd call from Any, referral accepted. AVS updated. Addendum 3587: Rec'd msg from Richie MARIO, pt elects outpt therapy. [facility] discontinued and updatesent to Any. Is [facility] plan complete or pending? Pt elects outpt tx Name of accepting [facility] - notified Referrals sent to: (names of agencies) Please be advised that agencies have 24 hours to respond to referrals. [facility] (did not send) [facility] (orders) placed? discontinued Verify demographics (discharge address) [address] [address] [email or web address] What is the primary phone number? [phone] Who is your primary care physician? Flash [...] arranged at time of discharge, liaison will followup on referral(s) for 24 to 48 hours [...] = Start of Care TCG = Teachable Geoduck Diver * Richie Harrison RN - 03/19/2025 8:58 AM EDTAssociated Order(s): IP CONSULT TO CARE MANAGEMENT; IP [...] 5 with ampac of 10. Per previous [facility] note, patient was agreeable to hhcservices prior to OR 03/17. Patient was independent prior to admission, hopeful for progression withtherapy to proceed with home going plan. Otherwise will explore facility route if interested. If agreeable to facility, will need precert. Will continue to follow as patient progresses medically. Addendum 1355: spoke with patient at bedside. Patient only wants home going plan. Will still plan for hhc once ready for discharge. Assessment and Background Information: * Gina Anand - 03/19/2025 8:45 AM EDT Occupational Therapy OCCUPATIONAL THERAPY EVALUATION AND TREATMENT [...] intolerance. The patient's home setup is a esl instructional assistant for return to prior level of function. The patient's compliance is a barrier, awareness of own capacity and performance is a esl instructional assistant to return to prior level of function. [...] Attention: Attends to quiet environment Hearing Status: [facility] Social Interaction: Appropriate, Cooperative, Impulsive Comments: [...] Supine: (Post-session Pt left in EOB position.) Oxyacetylene Welder: bedrails Functional Transfers Sit to Stand: Minimal assist, Moderate assist, 2 person assist Oxyacetylene Welder: wheeled walker Additional Functional Transfer Trial 2: Yes Sit to Stand Trial 2: Contact guard assist, Minimal assist Bed to Chair Trial 2: Contact guard assist, Minimal assist Oxyacetylene Welder Trial 2: wheeled walker Home Living Obtained [...] walker.) Prior Level of Function Level of [place] - Transfers/Ambulation/Mobility: Independent with functional transfers Level of [place] - ADLs: Independent Level of [place] - Homemaking: Independent Driving: Patient drives Vocational: [...] Bathing - Skilled Intervention Provided: environmental setup/modification, facilitation,monitored patient's safety & tolerance Upper Body Bathing - For: compensatory strategies, efficient movement, safe bathing techniques, task simplification/modification, LE management, UE management Upper Body Bathing - Resulting In: improved activity tolerance, improved functional independence, improved performance with ADLs, improved safety, increased insight into deficits Lower Body Bathing - Skilled Intervention Provided: environmental setup/modification, facilitation,monitored patient's safety & tolerance Lower Body Bathing - For: LE management, compensatory strategies, efficient movement, safe bathing techniques, task simplification/modification Lower Body Bathing - Resulting In: improved activity tolerance, improved functional independence, improved performance with ADLs, improved safety, increased insight into deficits Upper Body Dressing - Skilled Intervention Provided: verbal cues, environmental setup/modification,facilitation, monitored patient's safety & tolerance Upper Body Dressing - For: UE management, compensatory strategies, self- monitoring, task simplification/modification, efficient movement Upper Body Dressing [...] - Skilled Intervention Provided: verbal cues, environmental setup/modification,facilitation, monitoring patient response with activity, provided step [...] breaks/pace during functional tasks to improve activity tolerance.Pt demonstrated difficulty with self-awareness of safety when changing positions sit to stand. Pt required Mod VC's for redirection. Pt would benefit from continued education on utilizing AE. Past Medical History: Diagnosis Date Arthritis Avascular necrosis of bone of hip ([facility]) Claudication COPD (chronic obstructive pulmonary disease) ([facility]) Coronary artery disease Herpes zoster Hyperlipidemia Hypertension PAD (peripheral artery disease) ([facility]) 01/21/2022 Posterior tibial tendinitis of right leg 11/07/2022 Prostate cancer ([facility]) Vascular disease Past Surgical History: Procedure Laterality Date 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/08/2018 Procedure: LEFT MIDFOOT AMPUTATION; Surgeon: Flynn Mann DPM; Location: [facility]; Service: Podiatry ANKLE SURGERY Left BYPASS FEMOROTIBIAL REPAIR/GRAFT Right 03/17/2025 Procedure: RIGHT FEMORAL TO TIBIAL BYPASS WITH ARM VEIN. Angiogram; Surgeon: Mohsen Sarabia MD; Location: [facility] NEURO OR; Service: Gen-Vascular; Laterality: Right; BYPASS PERONEAL FEMORAL Right 09/07/2018 Procedure: BYPASS PERONEAL FEMORAL, RIGHT SAPHENOUS VEIN HARVEST, COMPLETION ANGIOGRAM; Surgeon: Mohsen Sarabia MD; Location: [facility] NEURO OR; Service: Cardiovascular CARDIAC CATHETERIZATION Left 09/05/2018 Procedure: Angio Lower Extremity; Surgeon: Ben Hahn MD; Location: [facility] 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; Service: Cardiovascular CARDIAC SURGERY 2017 triple bypass EGD N/A 10/10/2018 Procedure: ESOPHAGOGASTRODUODENOSCOPY; Surgeon: Ben Jensen MD; Location: [facility]; Service: Gastroenterology EYE SURGERY Right 2015 [...] [place] OT at 03/19/2025 4:38 PM EDT * Joanna Prakash LSW - 03/15/2025 12:32 PM EDTAssociated Order(s): IP CONSULT TO CARE MANAGEMENT Care Management Consult Note Date: 03/15/2025 Time: 12:32 PM Patient Name: Tristin Powell Date of : 1940 Reason for Consult: Discharge Plan: D/C Disposition: Home Health Care Services Related to Current Admission?: Yes Plan A: Home Health Care Services Plan B: Home Discharging Transportation Plan: Transportation Type: Auto Discharge Plan Status: DRY BOX TENDER consulted for discharge needs. PT recommending therapy 2-3 days per week. OT pending. DRY BOX TENDER met with pt at bedside to discuss [facility] level of care. Pt agreeable HHC. Pt with no [preference of agency. Pt's son will be primary caregiver upon discharge and will transport pt home when medically ready. DRY BOX TENDER confirmed pt demographics including address on [...] impact how we deliver your care?: No * Nataly Shin, PT - 03/15/2025 9:15 AM EDT Physical Therapy PHYSICAL THERAPY EVALUATION and TREATMENT NOTE PHYSICAL THERAPY EVALUATION Skilled Therapy Needs After Discharge Anticipate Resolution of Current Assessment Limitations Including: Mechanical Barriers, Pain Are cause analyst Therapy Services Needed After Discharge: Yes Intensity of cause analyst Therapy: 2-3 days per week Anticipated Duration of cause analyst Therapy: Duration 10 - 30 days PT [...] limitations of Gait, Stair-Climbing, Safety, Safety Awareness, ActivityTolerance, Insight. These impairments result in restrictions of [...] Standing Balance - Static: Contact guard assist Oxyacetylene Welder - Standing Static: wheeled walker Standing Balance - Dynamic: Contact guard assist Oxyacetylene Welder - Standing Dynamic: same braid pattern setter used for static standing tasks Bed Mobility Rolling: Supervision Supine to Sit: Supervision Sit to Supine: (patient sitting EOB) Oxyacetylene Welder: bedrails Transfers Sit to Stand: Contact guard assist Oxyacetylene Welder: wheeled walker Gait/Locomotion Gait Assistance: Contact guard [...] walker.) Prior Level of Function Level of [place] - Transfers/Ambulation/Mobility: Independent with community ambulation, Independent with household ambulation, Independent with functional transfers Level of [place] - ADLs: Independent Level of [place] - Homemaking: Independent Driving: Patient drives Vocational: [...] of bone of hip ([facility]) Claudication COPD (chronic obstructive pulmonary disease) ([facility]) Coronary artery disease Herpes zoster Hyperlipidemia Hypertension PAD (peripheral artery disease) ([facility]) 01/21/2022 Posterior tibial tendinitis of right leg 11/07/2022 Prostate cancer ([facility]) Vascular disease Past Surgical History: Procedure Laterality Date 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/08/2018 Procedure: LEFT MIDFOOT AMPUTATION; Surgeon: Flynn Mann DPM; Location: [facility] OR; Service: Podiatry ANKLE SURGERY Left BYPASS PERONEAL FEMORAL Right 09/07/2018 Procedure: BYPASS PERONEAL FEMORAL, RIGHT SAPHENOUS VEIN HARVEST, COMPLETION ANGIOGRAM; Surgeon: Mohsen Sarabia MD; Location: [facility] NEURO OR; Service: Cardiovascular CARDIAC CATHETERIZATION Left 09/05/2018 Procedure: Angio Lower Extremity; Surgeon: Ben Hahn MD; Location: [facility] 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; Service: Cardiovascular CARDIAC SURGERY 2017 triple bypass EGD N/A 10/10/2018 Procedure: ESOPHAGOGASTRODUODENOSCOPY; Surgeon: Ben Jensen MD; [place] [facility] [place]; Service: Gastroenterology EYE SURGERY Right 2015 [...] or completion of Physical Therapy Plan. * Demetrice Escobar CNP - 03/14/2025 1:33 PM EDTAssociated Order(s): IP CONSULT TO CARDIOLOGY - PERIPHERAL VASC DISEASE Images from the original note were not included. Peripheral Vascular Cardiology Inpatient Consult Heart & Vascular [facility] 03/14/2025 Demetrice Escobar, KAMARI [address] [id number] Patient: Tristin Powell Date of : 1940 [...] Recently underwent RLE angio on 03/12/25 via [facility] in [place] Non-invasive Studies: RLE arterial duplex (03/14/25): 50-99% [...] dated 03/12/25 and 10/12/23 from [facility]. Will review non-invasive studies as obtained earlier today as well as [facility] RLE angiograms with PV attending. Final disposition relative to request for repeat RLE angio +/- intervention to follow in PVattending attestation. Reason for consult: Leg Pain HPI: [...] underwent formal LE angio on 03/12/25 via [facility]. Follows with Dr. Juarez, cardiology, at [facility]. Last OV 11/2024. Son is present at bedside. He relates to longstanding RLE claudication within the calf and foot which has slowly progressed over the last 6 months, most intensely - to the point of non- weight bearing and/or limited weight bearing + discoloration over the last week. He has been off of his rivaroxaban (Xarelto) for the last 4-5 days in preparation for the angio he just underwent 2 days ago. He admits to ischemic rest pain overnight x several months with minimal improvement when the leg isplaced in a dependent position. He adds the [...] was drawn out. Relevant Vascular History: 06/2024: [facility] demonstrating stable coronary artery disease. Patent [...] SVG to PDA) via [facility] 10/2007: [facility] with MARIA ESTHER to LAD and LCx Objective Imaging: I independently reviewed the non-invasive vascular studies and agree with the interpretation(s) ECG 12 Lead Final Result by Interface, Lab Results In [place] [facility] (11/07/2022 1139) Echocardiogram complete w contrast [...] of bone of hip ([facility]) Claudication COPD (chronic obstructive pulmonary disease) ([facility]) Coronary artery disease Herpes zoster Hyperlipidemia Hypertension PAD (peripheral artery disease) ([facility]) 01/21/2022 Posterior tibial tendinitis of right leg 11/07/2022 Prostate cancer ([facility]) Vascular disease Past Surgical History: Procedure Laterality Date 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/08/2018 Procedure: LEFT MIDFOOT AMPUTATION; Surgeon: Flynn Mann DPM; Location: [facility] OR; Service: Podiatry ANKLE SURGERY Left BYPASS PERONEAL FEMORAL Right 09/07/2018 Procedure: BYPASS PERONEAL FEMORAL, RIGHT SAPHENOUS VEIN HARVEST, COMPLETION ANGIOGRAM; Surgeon: Mohsen Sarabia MD; Location: [facility] NEURO OR; Service: Cardiovascular CARDIAC CATHETERIZATION Left 09/05/2018 Procedure: Angio Lower Extremity; Surgeon: Ben Hahn MD; Location: [facility] 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; Service: Cardiovascular CARDIAC SURGERY 2017 triple bypass EGD N/A 10/10/2018 Procedure: ESOPHAGOGASTRODUODENOSCOPY; Surgeon: Ben Jensen MD; Location: [facility] [place]; Service: Gastroenterology EYE SURGERY Right 2015 [...] (40 mg total) by mouth 2 (two) timesa day /2 tab . AZELASTINE (ASTELIN) 137 [...] mg total) by mouth daily as needed Reasons:visible water retention. IPRATROPIUM-ALBUTEROL (DUO-NEB) 0.5-2.5 MG/3 ML NEBULIZER Take 3 mL by nebulization 3 (three) timesa day . LOSARTAN (COZAAR) 50 MG TABLET [...] by mouth 2 (two) times a day. TAMSULOSIN (FLOMAX) 0.4 MG CAPSULE Take 1 [...] Sitting) Pulse 78 Temp 97.8 F (36.6 C)(Oral) Resp 18 Ht 6' 2 Wt 113.4 [...] erythema/dependent rubor, and edema of the right foot.Dorsal surface: insensate to until the arch. Plantar [...] to contact me, my mobile number is [phone]. Respectfully, Demetrice Martinez APRN [facility] [1] Social History [...] hyperlipidemia, heart failure with preserved ejection fraction, paroxysmalatrial fibrillation, and advanced PAD who presents with [...] He underwent angiography 2 days ago in [place] where hewas found to have progressive disease in his distal SFA and a known occlusion of his mid right popliteal artery with reconstitution of the peroneal vessel only. The SFA underwent balloon angioplasty to improve geniculate blood flow but unfortunately he remains extremely ischemic. His YAMILE 0.5 on theright lower extremity with flat transmetatarsal and toe waveforms. Past Medical History: Diagnosis Date Arthritis Avascular necrosis of bone of hip ([facility]) Claudication COPD (chronic obstructive pulmonary disease) ([facility]) Coronary artery disease Herpes zoster Hyperlipidemia Hypertension PAD (peripheral artery disease) ([facility]) 01/21/2022 Posterior tibial tendinitis of right leg 11/07/2022 Prostate cancer ([facility]) Vascular disease Allergies: Doxycycline and Gabapentin Current [...] artery as it enters the foot. Impression: [place] 4 critical limb threatening ischemia Advanced peripheral [...] is clearly a size discrepancy in the long- term durability is likely to be poor. All [...] vascular surgery colleagues I personally performed a hbnm-cr-ulda diagnostic evaluation on this patient on the [...] 0.5 mg 0.5 mg Intravenous Q3H PRN BonaparteMuna denise MD naloxone (NARCAN) injection 0.1 mg 0.1 mg Intravenous PRN Bonaparte, Muna Bhatti MD And naloxone (NARCAN) injection 0.4 mg 0.4 mg Intravenous PRN BonaparteMuna denise MD ondansetron (ZOFRAN) injection 4 mg 4 mg Intravenous Q6H PRN BonaparteMuna denise MD oxyCODONE-acetaminophen (PERCOCET) 5-325 mg per tablet 1 tablet 1 tablet Oral Q6H PRN BonaparteMuna perez MD sodium chloride (PF) (NS) flush [...] (40 mg total) by mouth 2 (two) timesa day 1/2 tab . azelastine (ASTELIN) 137 [...] mg total) by mouth daily as needed Reasons:visible water retention. losartan (COZAAR) 50 MG tablet [...] by mouth 2 (two) times a day. tamsulosin (FLOMAX) 0.4 mg capsule Take 1 [...] by nebulization 3 (three) timesa day . nitroGLYCERIN (NITROSTAT) 0.[address] 1 tablet as needed by sublingual route. ondansetron (ZOFRAN) 4 MG tablet pneumococcal conj. 13-valent (Prevnar 13, PF,) 0.5 mL vaccine urea (CARMOL) 40 % Crea * Beena Barraza MD - 03/14/2025 11:56 AM [...] (2019, [facility]), left TMA who presented to [facility] on 03/14/2025 with worsening RLE pain and discoloration. Arterial Duplex (03/14/25): 50-99% stenosis in the right mid SFA YAMILE's (03/14/25): Right YAMILE is 0.50. Left YAMILE is 0.55. CTLI IV Aortic Stenosis -Patient w/ notable history of PAD s/p left fem to peroneal bypass (2019, [facility]) p/w RLE rest painx 3 days. Work up concerning for SFA [...] Beena Barraza MD General Surgery Resident, PGY-[address] [facility] Please contact surgical internal control analyst site damage prevention technician 5PM-6AM and weekends - #[phone] VTS Pager - #[phone] Admitted with these risk variables:None. Please see assessment and plan for further details. HISTORY OF PRESENT ILLNESS Over last three weeks developed some numbness and burning in his right foot, which acutely worsened5 days ago. It has since been constant, [...] of bone of hip ([facility]) Claudication COPD (chronic obstructive pulmonary disease) ([facility]) Coronary artery disease Herpes zoster Hyperlipidemia Hypertension PAD (peripheral artery disease) ([facility]) 01/21/2022 Posterior tibial tendinitis of right leg 11/07/2022 Prostate cancer ([facility]) Vascular disease Past Surgical History: Procedure Laterality Date 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/08/2018 Procedure: LEFT MIDFOOT AMPUTATION; Surgeon: Flynn Mann DPM; Location: [facility] OR; Service: Podiatry ANKLE SURGERY Left BYPASS PERONEAL FEMORAL Right 09/07/2018 Procedure: BYPASS PERONEAL FEMORAL, RIGHT SAPHENOUS VEIN HARVEST, COMPLETION ANGIOGRAM; Surgeon: Mohsen Sarabia MD; Location: [facility] NEURO OR; Service: Cardiovascular CARDIAC CATHETERIZATION Left 09/05/2018 Procedure: Angio Lower Extremity; Surgeon: Ben Hahn MD; Location: [facility] 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; Service: Cardiovascular CARDIAC SURGERY 2017 triple bypass EGD N/A 10/10/2018 Procedure: ESOPHAGOGASTRODUODENOSCOPY; Surgeon: Ben Jensen MD; Location: [facility] [place]; Service: Gastroenterology EYE SURGERY Right 2015 FOOT SURGERY ORTHOPEDIC SURGERY STENT PLACEMENT Family History Problem Relation Age of Onset No Known Problems Mother Heart disease Father Prostate cancer Brother Cancer Paternal Aunt Social History [1] PHYSICAL EXAM VITALS BP (!) 159/69 (BP Location: Right arm, Patient Position: Sitting) Pulse 78 Temp 97.8 F (36.6 C)(Oral) Resp 18 Ht 6' 2 Wt 113.4 [...] Resource Strain: Low Risk (06/21/2024) Received from [facility] Overall Financial Resource Strain (CARDIA) Difficulty of Paying Living Expenses: Not hard at all Food Insecurity: No Food Insecurity (06/21/2024) Received from [facility] Hunger Vital Sign Worried About Running Out of Food in the Last Year: Never true Ran Out of Food in the Last Year: Never true Transportation Needs: No Transportation Needs (06/21/2024) Received from [facility] PRAPARE - Transportation Lack of Transportation (Medical): No Lack of Transportation (Non-Medical): No Physical Activity: Insufficiently Active (06/21/2024) Received from [facility] Exercise Vital Sign Days of Exercise per Week: 7 days Minutes of Exercise per Session: 10 min Stress: No Stress Concern Present (06/21/2024) Received from [facility] [place] of Occupational Health - Occupational Stress Questionnaire Feeling of Stress : Not at all Housing Stability: Low Risk (06/21/2024) Received from [facility] Housing Stability Vital Sign Unable [...] personally examined the patient and agree with resident/MINIATURE MODEL MAKER/PA assessment and plan with the following additional findings. Pt known to me with CLTI of the RLE with rest pain and early ischemic skin changes. Plan for R fem tib bypass on Monday for limb salvage documented in this [id number] Plan of care note* Plan of Care - China Negro RN - 03/21/2025 12:45 AM EDT Problem: Actual or potential alteration in health [...] Absence of pressure injury Outcome: Partially Met [id number] Miscellaneous Notes* Plan of Care - China Negro RN - 03/21/2025 12:45 AM EDT Problem: Actual or potential alteration in health [...] Absence of pressure injury Outcome: Partially Met * Initial Assessments - Serenity Wilson RD - 03/20/2025 2:48 PM EDT 03/20/2025: Nutrition Note Reason for visit: Dietitian [...] CABG, recent balloon angioplasty 03/12/2025,. presented to [facility] ED on 03/14/2025 from Vascular Surgery clinic with intractable right foot pain. Found to have critical right LE ischemia. S/p angiogram 03/17/25with R SFA to peroneal bypass. Past Medical History: Diagnosis Date Arthritis Avascular necrosis of bone of hip ([facility]) Claudication COPD (chronic obstructive pulmonary disease) ([facility]) Coronary artery disease Herpes zoster Hyperlipidemia Hypertension PAD (peripheral artery disease) ([facility]) 01/21/2022 Posterior tibial tendinitis of right leg 11/07/2022 Prostate cancer ([facility]) Vascular disease Past Surgical History: Procedure Laterality Date 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/08/2018 Procedure: LEFT MIDFOOT AMPUTATION; Surgeon: Flynn Mann DPM; Location: [facility] OR; Service: Podiatry ANKLE SURGERY Left BYPASS FEMOROTIBIAL REPAIR/GRAFT Right 03/17/2025 Procedure: RIGHT FEMORAL TO TIBIAL BYPASS WITH ARM VEIN. Angiogram; Surgeon: Mohsen Sarabia MD; Location: [facility] NEURO OR; Service: Gen-Vascular; Laterality: Right; BYPASS PERONEAL FEMORAL Right 09/07/2018 Procedure: BYPASS PERONEAL FEMORAL, RIGHT SAPHENOUS VEIN HARVEST, COMPLETION ANGIOGRAM; Surgeon: Mohsen Sarabia MD; Location: [facility] NEURO OR; Service: Cardiovascular CARDIAC CATHETERIZATION Left 09/05/2018 Procedure: Angio Lower Extremity; Surgeon: Ben Hahn MD; Location: [facility] 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; Service: Cardiovascular CARDIAC SURGERY 2017 triple bypass EGD N/A 10/10/2018 Procedure: ESOPHAGOGASTRODUODENOSCOPY; Surgeon: Ben Jensen MD; Location: [facility] [place]; Service: Gastroenterology EYE SURGERY Right 2015 [...] No Nutrition Related Allergies noted Cultural or Christianity Dietary Needs :No Cultural or Christianity Dietary needs noted Difficulty Chewing or Swallowing: [...] Nightly Continuous Infusions: sodium chloride Serenity Wilson RD,[place],[facility] or in [place] Secure Chat * Plan of Care - Zenobia Clay RN - 03/20/2025 12:11 AM EDT Problem: Actual or potential alteration in health [...] Absence of pressure injury Outcome: Partially Met * Plan of Care - Zenobia Clay RN - 03/18/2025 4:47 AM EDT Problem: Actual or potential alteration in health [...] Absence of pressure injury Outcome: Partially Met * Brief Op Note - Karina Orozco MD - 03/17/2025 4:30 PM EDT Brief Post Operative Note Patient Name: Tristin Powell : 1940 (85 y.o.) Date of Service: 03/17/2025 [facility]: [id number] Procedure(s): RIGHT FEMORAL TO TIBIAL BYPASS WITH ARM VEIN. Angiogram Pre-Operative Diagnoses: * PERIPHERAL ARTERY DISEASE Post-Operative Diagnoses: same Surgeons and Role: * Mohsen Sarabia MD - Primary * Karina Orozco MD - Resident - Assisting Anesthesiologist: Serjio Olivarez MD; Muna Gil MD EXPLOSIVE ORDNANCE TECHNICIAN: Viviana Dhillon CRNA Chicken Catcher: Lori Diaz RN Hospital Unit Coordinator: Jose C Ambrose, TECHNOLOGIST Chicken Catcher Relief: Millicent Cedeño RN; Arlene Watson RN Scrub Person Relief: Izabel Bosch RN Chicken Catcher Orientee: Kaylie Jason RN Chicken Catcher Preceptor: Izabel Bosch RN Scrub Person Preceptor: [...] Implant Name Type Inv. Item Serial No. Evaporator Lot No. LRB No. Used Action HEMOSTAT 2 X 4IN SURGICEL FIBRILLAR - SNA HEMOSTAT 2 X 4IN SURGICEL FIBRILLAR NA ETHICON [id number] Right 1 Implanted SEALANT 10ML HEMOSTATIC MATRIX FAST PREP FLOSEAL W/RECOTHROM - [id number] SEALANT 10ML HEMOSTATIC MATRIX FAST PREP FLOSEAL W/RECOTHROM [employer] [id number] Right 1 Implanted Drain(s): Urethral Catheter Non-latex;Straight-tip [...] 2100 Primary Dressing Bordered Foam (e.g. mepilex) 03/14/252099 Did the case consist of ANY colon or uterine surgery? NO Karina Orozco MD 03/17/2025 4:30 PM * Quick Note - Catina Calixto CNP - 03/17/2025 9:24 AM EDT Asked to provide cardiac risk stratification for [...] available as needed for any cardiac issues. * [facility] - Yolanda Mcgee, PT - 03/17/2025 7:25 AM EDT PHYSICAL THERAPY VISIT VARIANCE NOTE Attempted to see patient at this time, but unable secondary to: Awaiting Medical Clearance (comment) (scheduled for OR today). Will follow up as appropriate. * [facility] - Demetrice Rivera OT - 03/17/2025 7:22 AM EDT OCCUPATIONAL THERAPY VISIT VARIANCE NOTE Attempted to see patient at this time, but unable secondary to: Awaiting Medical Clearance (Pending OR today). Will follow up as appropriate. * Quick Note - Yarely Mccarty RN - 03/15/2025 4:49 PM EDT Bedside report was completed including the discussion [...] Verified by note author and VAN Jean. * Quick Note - Demetrice Escobar CNP - 03/14/2025 4:35 PM EDT Added to labor economics teacher schedule for 03/17/25, with Dr. Mast for a RLE angio +/- intervention. Orders placed. Consent signed and given to labor economics teacher. ASA and clopidogrel initiated. Again, no heparin gtt required unless needed in the setting of hx of paroxysmal a.fib (historicallyon Xarelto; however, has been held over the past week 2/2 RLE angio at [facility] as performed on 03/12/25). Additionally, please accept [...] grossly insensate from toes to the ankle. * Quick Note - Iris Baxter RN - 03/14/2025 3:49 PM EDT This nurse was able to get RLE angiogram from March 12, 2025 from [facility] sent electronically. This was sent to Juana Escobar NP. She was able to open and view. Images sent to appropriate staff per Juana Escobar CNP. Called and notified the patient's daughter that she does not have to get the disc from [facility] to [facility]. * Assessment & Plan Note - Demetrice Escobar CNP - 03/14/2025 3:32 PM EDT Associated Problem(s): Carotid stenosis, asymptomatic, bilateral Asymptomatic. No hx of CVA Non-invasive Studies: Carotid Duplex (04/2024): Left ICA with mild <50% stenosis of heterogenous plaque. Right ICA with moderate 50-69% stenosis of heterogenous plaque * Assessment & Plan Note - Demetrice Escobar CNP - 03/14/2025 3:30 PM EDT Associated Problem(s): Coronary artery disease involving coronary bypass graft of [place] heart without angina pectoris S/p 3v CABG in 2017 Asymptomatic * Assessment & Plan Note - Mirna Fenton CNP - 03/14/2025 3:26 PM EDT Associated Problem(s): Critical lower limb ischemia (HCC) Presents from Dr. 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 (uses a LLE ankle/foot prosthesis to help with ambulation) Recently underwent RLE angio on 03/12/25 via [facility] in [place] Non-invasive Studies: RLE arterial duplex (03/14/25): 50-99% [...] continue to monitor over the weekend * Assessment & Plan Note - Demetrice Escobar CNP - 03/14/2025 3:18 PM EDT Associated Problem(s): PAD (peripheral artery disease) (HCC) Longstanding, significant atherosclerotic disease with history of multiple endovascular and surgical interventions as outlined in the body of this note, please reference Plan: Continue ASA and statin therapies as prescribed. documented in this [id number] Initial evaluation note* Initial Assessments - Serenity Wilson RD - 03/20/2025 2:48 PM EDT 03/20/2025: Nutrition Note Reason for visit: Dietitian [...] CABG, recent balloon angioplasty 03/12/2025,. presented to [facility] ED on 03/14/2025 from Vascular Surgery clinic with intractable right foot pain. Found to have critical right LE ischemia. S/p angiogram 03/17/25with R SFA to peroneal bypass. Past Medical History: Diagnosis Date Arthritis Avascular necrosis of bone of hip ([facility]) Claudication COPD (chronic obstructive pulmonary disease) ([facility]) Coronary artery disease Herpes zoster Hyperlipidemia Hypertension PAD (peripheral artery disease) ([facility]) 01/21/2022 Posterior tibial tendinitis of right leg 11/07/2022 Prostate cancer (HCC) Vascular disease Past Surgical History: Procedure Laterality Date 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/08/2018 Procedure: LEFT MIDFOOT AMPUTATION; Surgeon: Flynn Mann DPM; Location: [facility] OR; Service: Podiatry ANKLE SURGERY Left BYPASS FEMOROTIBIAL REPAIR/GRAFT Right 03/17/2025 Procedure: RIGHT FEMORAL TO TIBIAL BYPASS WITH ARM VEIN. Angiogram; Surgeon: Mohsen Sarabia MD; Location: [facility] NEURO OR; Service: Gen-Vascular; Laterality: Right; BYPASS PERONEAL FEMORAL Right 09/07/2018 Procedure: BYPASS PERONEAL FEMORAL, RIGHT SAPHENOUS VEIN HARVEST, COMPLETION ANGIOGRAM; Surgeon: Mohsen Sarabia MD; Location: [facility] NEURO OR; Service: Cardiovascular CARDIAC CATHETERIZATION Left 09/05/2018 Procedure: Angio Lower Extremity; Surgeon: Ben Hahn MD; Location: [facility] 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; Service: Cardiovascular CARDIAC SURGERY 2017 triple bypass EGD N/A 10/10/2018 Procedure: ESOPHAGOGASTRODUODENOSCOPY; Surgeon: Ben Jensen MD; Location: [facility] [place]; Service: Gastroenterology EYE SURGERY Right 2014 [...] No Nutrition Related Allergies noted Cultural or Christianity Dietary Needs :No Cultural or Christianity Dietary needs noted Difficulty Chewing or Swallowing: [...] Nightly Continuous Infusions: sodium chloride Serenity Wilson RD,[place],[facility] or in [place] Secure Chat [id number] [facility] Inpatient Progress Note 03/20/2025 Tristin Powell 1940 [id number] Assessment/Plan: Tristin Powell is a 85 y.o. male with a history of Peripheral Artery Disease s/p Bypass, Afib (Xarelto), Diastolic Heart Failure, Coronary Artery Disease s/p CABG, recent balloon angioplasty 03/12/2025,. presented to [facility] ED on 03/14/2025 from Vascular Surgery clinic with intractable right foot pain. Found to have critical right LE ischemia Critical right lower limb ischemia: History of PAD. Follows Dr. Beaver ([facility]) and Dr. Sarabia (Vascular [...] S/p IV pain meds. CAD: Followed by [facility] s/p 3 vessel coronary artery [...] xarelto Medication Reconciliation: Reviewed using patient interview, pathological technician Current living situation: home Expected Disposition: [...] major joint deformity: RLE tired leg and table tender sludge to touch. Moving well with mild pain.: [...] 4.86 4.34* 5.05 HG (more content not included)...[facility]07-24-2025 Note VASCULAR SURGERY PROGRESS NOTE Patient Name: Tristin [...] (2018, [place]), left TMA who presented to [facility] on 03/14/2025 with worsening RLE [...] TREV COLEMAN MD General Surgery Resident, PGY-[address] [facility] Please contact surgical internal control analyst site damage prevention technician 5PM-6AM and weekends - #[phone] TXS Pager - #[phone] Subjective NAEO. Has been ambulating. New bruising [...] reviewed AUTHENTICATED BY TREV COLEMAN ON 03/20/2025 07:05:30[facility] 03-20-2025 Plan of care note* Plan of Care - Zenobia Clay RN - 03/20/2025 12:11 AM EDT Problem: Actual or potential alteration in health [...] Absence of pressure injury Outcome: Partially Met [id number] Consult note* Richie Harrison RN - 03/19/2025 8:58 AM EDTAssociated Order(s): IP CONSULT TO CARE MANAGEMENT; IP [...] 5 with ampac of 10. Per previous [facility] note, patient was agreeable to [facility] prior to OR 03/17. Patient was independent prior to admission, hopeful for progression withtherapy to proceed with home going plan. Otherwise will explore facility route if interested. If agreeable to facility, will need precert. Will continue to follow as patient progresses medically. Addendum 1355: spoke with patient at bedside. Patient only wants home going plan. Will still plan for hhc once ready for discharge. Assessment and Background Information: [id number] Consult note* Gina Anand - 03/19/2025 8:45 AM EDT Occupational Therapy OCCUPATIONAL THERAPY EVALUATION AND TREATMENT [...] 0% AM-PAC Daily Activity Raw Score: 17 AM-[facility] Daily Activity % Impaired: 50.11% Occupational Therapy [...] intolerance. The patient's home setup is a esl instructional assistant for return to prior level of function. The patient's compliance is a barrier, awareness of own capacity and performance is a esl instructional assistant to return to prior level of function. [...] Attention: Attends to quiet environment Hearing Status: WF Social Interaction: Appropriate, Cooperative, Impulsive Comments: Pt [...] Supine: (Post-session Pt left in EOB position.) Oxyacetylene Welder: bedrails Functional Transfers Sit to Stand: Minimal assist, Moderate assist, 2 person assist Oxyacetylene Welder: wheeled walker Additional Functional Transfer Trial 2: Yes Sit to Stand Trial 2: Contact guard assist, Minimal assist Bed to Chair Trial 2: Contact guard assist, Minimal assist Oxyacetylene Welder Trial 2: wheeled walker Home Living Obtained [...] walker.) Prior Level of Function Level of [place] - Transfers/Ambulation/Mobility: Independent with functional transfers Level of [place] - ADLs: Independent Level of [place] - Homemaking: Independent Driving: Patient drives Vocational: [...] Bathing - Skilled Intervention Provided: environmental setup/modification, facilitation,monitored patient's safety & tolerance Upper Body Bathing - For: compensatory strategies, efficient movement, safe bathing techniques, task simplification/modification, LE management, UE management Upper Body Bathing - Resulting In: improved activity tolerance, improved functional independence, improved performance with ADLs, improved safety, increased insight into deficits Lower Body Bathing - Skilled Intervention Provided: environmental setup/modification, facilitation,monitored patient's safety & tolerance Lower Body Bathing - For: LE management, compensatory strategies, efficient movement, safe bathing techniques, task simplification/modification Lower Body Bathing - Resulting In: improved activity tolerance, improved functional independence, improved performance with ADLs, improved safety, increased insight into deficits Upper Body Dressing - Skilled Intervention Provided: verbal cues, environmental setup/modification,facilitation, monitored patient's safety & tolerance Upper Body Dressing - For: UE management, compensatory strategies, self- monitoring, task simplification/modification, efficient movement Upper Body Dressing [...] - Skilled Intervention Provided: verbal cues, environmental setup/modification,facilitation, monitoring patient response with activity, provided step [...] breaks/pace during functional tasks to improve activity tolerance.Pt demonstrated difficulty with self-awareness of safety when changing positions sit to stand. Pt required Mod VC's for redirection. Pt would benefit from continued education on utilizing AE. Past Medical History: Diagnosis Date Arthritis Avascular necrosis of bone of hip (HCC) Claudication COPD (chronic obstructive pulmonary disease) ([facility]) Coronary artery disease Herpes zoster Hyperlipidemia Hypertension PAD (peripheral artery disease) ([facility]) 01/21/2022 Posterior tibial tendinitis of right leg 11/07/2022 Prostate cancer ([facility]) Vascular disease Past Surgical History: Procedure Laterality Date 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/08/2018 Procedure: LEFT MIDFOOT AMPUTATION; Surgeon: Flynn Mann DPM; Location: [facility] OR; Service: Podiatry ANKLE SURGERY Left BYPASS FEMOROTIBIAL REPAIR/GRAFT Right 03/17/2025 Procedure: RIGHT FEMORAL TO TIBIAL BYPASS WITH ARM VEIN. Angiogram; Surgeon: Mohsen Sarabia MD; Location: [facility] NEURO OR; Service: Gen-Vascular; Laterality: Right; BYPASS PERONEAL FEMORAL Right 09/07/2018 Procedure: BYPASS PERONEAL FEMORAL, RIGHT SAPHENOUS VEIN HARVEST, COMPLETION ANGIOGRAM; Surgeon: Mohsen Sarabia MD; Location: [facility] NEURO OR; Service: Cardiovascular CARDIAC CATHETERIZATION Left 09/05/2018 Procedure: Angio Lower Extremity; Surgeon: Ben Hahn MD; Location: [facility] 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; Service: Cardiovascular CARDIAC SURGERY 2017 triple bypass EGD N/A 10/10/2018 Procedure: ESOPHAGOGASTRODUODENOSCOPY; Surgeon: Ben Jensen MD; [place] [facility] [place]; Service: Gastroenterology EYE SURGERY Right 2015 [...] Alcantara OT at 03/19/2025 4:38 PM EDT [id number] [facility] Inpatient Progress Note 03/19/2025 Tristin Powell 1940 [id number] Assessment/Plan: Tristin Powell is a 85 y.o. male with a history of Peripheral Artery Disease s/p Bypass, Afib (Xarelto), Diastolic Heart Failure, Coronary Artery Disease s/p CABG, recent balloon angioplasty 03/12/2025,. presented to [facility] ED on 03/14/2025 from Vascular Surgery clinic with intractable right foot pain. Found to have critical right LE ischemia Critical right lower limb ischemia: History of PAD. Follows Dr. Beaver ([facility]) and Dr. Sarabia (Vascular [...] added, wean as able. CAD: Followed by [facility] s/p 3 vessel coronary artery [...] xarelto Medication Reconciliation: Reviewed using patient interview, pathological technician Current living situation: home Expected Disposition: PT/OT rec up to 5 pt requesting home with [facility], following. Estimated discharge date: ~03/20/2025 Medically [...] major joint deformity: RLE tired leg and table tender sludge to touch. Moving well with mild pain.: [...] WBC K/mcL 4.34* 5 (more content not included)...[facility] 03-19-2025 NoteVASCULAR SURGERY PROGRESS NOTE Patient Name: Tristin Powell [...] (2018, [place]), left TMA who presented to [facility] on 03/14/2025 with worsening RLE [...] TREV COLEMAN MD General Surgery Resident, PGY-[address] [facility] Please contact surgical internal control analyst site damage prevention technician 5PM-6AM and weekends - #[phone] VTS Pager - #[phone] Subjective NAEO. Was able to get up [...] reviewed AUTHENTICATED BY TREV COLEMAN, ON 03/19/2025 07:06:48[facility] Inpatient Progress Note 03/18/2025 Tristin Bazan Sherry 1940 [id number] Assessment/Plan: Tristin Powell is a 85 y.o. male with a history of Peripheral Artery Disease s/p Bypass, Afib (Xarelto), Diastolic Heart Failure, Coronary Artery Disease s/p CABG, recent balloon angioplasty 03/12/2025,. presented to [facility] ED on 03/14/2025 from Vascular Surgery clinic with intractable right foot pain. Found to have critical right LE ischemia Critical right lower limb ischemia: History of PAD. Follows Dr. Beaver ([facility]) and Dr. Sarabia (Vascular [...] dose. IV Dilaudid added. CAD: Followed by [facility] s/p 3 vessel coronary artery [...] per Medication Reconciliation: Reviewed using patient interview, pathological technician Current living situation: home Expected Disposition: [...] major joint deformity: RLE tired leg and table tender sludge to touch. Moving well with mild pain.: [...] Lab Units 03/18/25 04 (more content not included)...[facility]07-22-2025 Note VASCULAR SURGERY PROGRESS NOTE [facility]: [id number] Reason for Consult: RLE rest pain ASSESSMENT AND PLAN Tristin Powell is a 85 y.o. male with history of arotic stenosis, HTN, dyslipidemia, HFpEF, ascending/thoracic aortic aneurysm (4.[address] dated 04/2024), CAD (NSTEMI; s/p 3v CABG), paroxysmal a.fib, aortic & mitral valve disease, COPD, CKD stage 3, PAD, s/p left fem to peroneal bypass (2018, [place]), left TMA who presented to [facility] on 03/14/2025 with worsening RLE [...] TREV COLEMAN MD General Surgery Resident, PGY-[address] [facility] Please contact surgical internal control analyst site damage prevention technician 5PM-6AM and weekends - #[phone] VTS Pager - #[phone] Subjective NAEO. Feels good this morning. Wants [...] reviewed AUTHENTICATED BY TREV COLEMAN, ON 03/18/2025 06:35:17[facility] 03-18-2025 History of Present illness Narrative* Brenna Galloway RN - 03/18/2025 5:36 AM EDT Pt seen by [facility] cardiology while at [facility]. Per Catina Calixto CNP, no [facility] cardiology follow up needed, ptto f/u with vascular surgery. documented in this [id number] Plan of care note* Plan of Care - Zenobia Clay RN - 03/18/2025 4:47 AM EDT Problem: Actual or potential alteration in health [...] Absence of pressure injury Outcome: Partially Met [id number] NoteVASCULAR SURGERY PROGRESS NOTE Patient Name: Tristin Powell ASSESSMENT AND PLAN Tristin Powell is a 85 y.o. male with history of arotic stenosis, HTN, dyslipidemia, HFpEF, ascending/thoracic aortic aneurysm (4.[address] dated 04/2024), CAD (NSTEMI; s/p 3v CABG), paroxysmal a.fib, aortic & mitral valve disease, COPD, CKD stage 3, PAD, s/p left fem to peroneal bypass ([place], [facility]), left TMA who presented to [facility] on 03/14/2025 with worsening RLE [...] Walker MD General Surgery Please contact surgical internal control analyst site damage prevention technician 5PM-6AM and weekends VTS Pager - #[phone] SUBJECTIVE Patient is resting in bed with [...] reads. AUTHENTICATED BY ABI WALKER, ON 03/18/2025 03:54:39[facility]07-21-2025 Procedure note* Brief Op Note - Karina Orozco MD - 03/17/2025 4:30 PM EDT Brief Post Operative Note Patient Name: Tristin Powell : 1940 (85 y.o.) Date of Service: 03/17/2025 CSN: [id number] Procedure(s): RIGHT FEMORAL TO TIBIAL BYPASS WITH ARM VEIN. Angiogram Pre-Operative Diagnoses: * PERIPHERAL ARTERY DISEASE Post-Operative Diagnoses: same Surgeons and Role: * Mohsen Sarabia MD - Primary * Karina Orozco MD - Resident - Assisting Anesthesiologist: Serjio Olivarez MD; Muna Gil MD EXPLOSIVE ORDNANCE TECHNICIAN: Viviana Dhillon CRNA Chicken Catcher: Lori Diaz RN Hospital Unit Coordinator: Jose C Ambrose TECHNOLOGIST Chicken Catcher Relief: Millicent Cedeño RN; Arlene Watson RN Scrub Person Relief: Izabel Bosch RN Chicken Catcher Orientee: Kaylie Jason RN Chicken Catcher Preceptor: Izabel Bosch RN Scrub Person Preceptor: [...] Implant Name Type Inv. Item Serial No. Evaporator Lot No. LRB No. Used Action HEMOSTAT 2 X 4IN SURGICEL FIBRILLAR - SNA HEMOSTAT 2 X 4IN SURGICEL FIBRILLAR NA ETHICON [id number] Right 1 Implanted SEALANT 10ML HEMOSTATIC MATRIX FAST PREP FLOSEAL W/RECOTHROM - [id number] SEALANT 10ML HEMOSTATIC MATRIX FAST PREP FLOSEAL W/RECOTHROM [employer] [id number] Right 1 Implanted Drain(s): Urethral Catheter Non-latex;Straight-tip [...] 2100 Primary Dressing Bordered Foam (e.g. mepilex) 03/14/252099 Did the case consist of ANY colon or uterine surgery? NO Karina Orozco MD 03/17/2025 4:30 PM [facility] Work Phone: 1(565) 116-822307-21-2025 Attending History and physical note* Mohsen Sarabia MD - 03/17/2025 11:36 AM EDT INTERVAL HISTORY AND PHYSICAL Patient Name: Tristin Powell Admit Date: [id number] MR #: [id number] : 1940 The H&P has been reviewed [...] (2018, [place]), left TMA who presented to [facility] on 03/14/2025 with worsening RLE pain and discoloration. Arterial Duplex (03/14/25): 50-99% stenosis in the right mid SFA YAMILE's (03/14/25): Right YAMILE is 0.50. Left YAMILE is 0.55. CTLI IV Aortic Stenosis -Patient w/ notable history of PAD s/p left fem to peroneal bypass (2018, [place]) p/w RLE rest painx 3 days. Work up concerning for SFA [...] Beena Barraza MD General Surgery Resident, PGY-[address] [facility] Please contact surgical internal control analyst site damage prevention technician 5PM-6AM and weekends - #[phone] TXS Pager - #[phone] Admitted with these risk variables:None. Please see assessment and plan for further details. HISTORY OF PRESENT ILLNESS Over last three weeks developed some numbness and burning in his right foot, which acutely worsened5 days ago. It has since been constant, [...] of bone of hip ([facility]) Claudication COPD (chronic obstructive pulmonary disease) ([facility]) Coronary artery disease Herpes zoster Hyperlipidemia Hypertension PAD (peripheral artery disease) ([facility]) 01/21/2022 Posterior tibial tendinitis of right leg 11/07/2022 Prostate cancer ([facility]) Vascular disease Past Surgical History: Procedure Laterality Date 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/08/2018 Procedure: LEFT MIDFOOT AMPUTATION; Surgeon: Flynn Mann DPM; Location: [facility] OR; Service: Podiatry ANKLE SURGERY Left BYPASS PERONEAL FEMORAL Right 09/07/2018 Procedure: BYPASS PERONEAL FEMORAL, RIGHT SAPHENOUS VEIN HARVEST, COMPLETION ANGIOGRAM; Surgeon: Mohsen Sarabia MD; Location: [facility] NEURO OR; Service: Cardiovascular CARDIAC CATHETERIZATION Left 09/05/2018 Procedure: Angio Lower Extremity; Surgeon: Ben Hahn MD; Location: [facility] 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; Service: Cardiovascular CARDIAC SURGERY 2017 triple bypass EGD N/A 10/10/2018 Procedure: ESOPHAGOGASTRODUODENOSCOPY; Surgeon: Ben Jensen MD; [place]: [facility] [place]; Service: Gastroenterology EYE SURGERY Right 2015 FOOT SURGERY ORTHOPEDIC SURGERY STENT PLACEMENT Family History Problem Relation Age of Onset No Known Problems Mother Heart disease Father Prostate cancer Brother Cancer Paternal Aunt Social History [1] PHYSICAL EXAM VITALS BP (!) 159/69 (BP Location: Right arm, Patient Position: Sitting) Pulse 78 Temp 97.8 F (36.6 C)(Oral) Resp 18 Ht 6' 2 Wt 113.4 [...] Resource Strain: Low Risk (06/21/2024) Received from [facility] Overall Financial Resource Strain (CARDIA) Difficulty of Paying Living Expenses: Not hard at all Food Insecurity: No Food Insecurity (06/21/2024) Received from [facility] Hunger Vital Sign Worried About Running Out of Food in the Last Year: Never true Ran Out of Food in the Last Year: Never true Transportation Needs: No Transportation Needs (06/21/2024) Received from [facility] PRAPARE - Transportation Lack of Transportation (Medical): No Lack of Transportation (Non-Medical): No Physical Activity: Insufficiently Active (06/21/2024) Received from [facility] Exercise Vital Sign Days of Exercise per Week: 7 days Minutes of Exercise per Session: 10 min Stress: No Stress Concern Present (06/21/2024) Received from [facility] [place] [facility] - Occupational Stress Questionnaire Feeling of Stress : Not at all Housing Stability: Low Risk (06/21/2024) Received from [facility] Housing Stability Vital Sign Unable to Pay for Housing in the Last Year: No Number of Times Moved in the Last Year: 0 Homeless in the Last Year: No Cosigned by Mohsen Sarabia MD at 03/16/2025 10:33 AM EDT [employer] Work Phone: 1(927) 328-523107-21-2025 History and physical note* Mohsen Sarabia MD - 03/17/2025 11:36 AM EDT INTERVAL HISTORY AND PHYSICAL Patient Name: Tristin Powell Admit Date: 7171002 MR #: [id number] : 1940 The H&P has been reviewed [...] (2018, [place]), left TMA who presented to [facility] on 03/14/2025 with worsening RLE pain and discoloration. Arterial Duplex (03/14/25): 50-99% stenosis in the right mid SFA YAMILE's (03/14/25): Right YAMILE is 0.50. Left YAMILE is 0.55. CTLI IV Aortic Stenosis -Patient w/ notable history of PAD s/p left fem to peroneal bypass (2018, [place]) p/w RLE rest painx 3 days. Work up concerning for SFA [...] Beena Barraza MD General Surgery Resident, PGY-[address] [facility] Please contact surgical internal control analyst site damage prevention technician 5PM-6AM and weekends - #[phone] VTS Pager - #[phone] Admitted with these risk variables:None. Please see assessment and plan for further details. HISTORY OF PRESENT ILLNESS Over last three weeks developed some numbness and burning in his right foot, which acutely worsened5 days ago. It has since been constant, [...] (chronic obstructive pulmonary disease) ([facility]) Coronary artery disease Herpes zoster Hyperlipidemia Hypertension PAD (peripheral artery disease) ([facility]) 01/21/2022 Posterior tibial tendinitis of right leg 11/07/2022 Prostate cancer (HCC) Vascular disease Past Surgical History: Procedure Laterality Date 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/08/2018 Procedure: LEFT MIDFOOT AMPUTATION; Surgeon: Flynn Mann DPM; Location: [facility] OR; Service: Podiatry ANKLE SURGERY Left BYPASS PERONEAL FEMORAL Right 09/07/2018 Procedure: BYPASS PERONEAL FEMORAL, RIGHT SAPHENOUS VEIN HARVEST, COMPLETION ANGIOGRAM; Surgeon: Mohsen Sarabia MD; Location: [facility] NEURO OR; Service: Cardiovascular CARDIAC CATHETERIZATION Left 09/05/2018 Procedure: Angio Lower Extremity; Surgeon: Ben Hahn MD; Location: [facility] 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; Service: Cardiovascular CARDIAC SURGERY 2017 triple bypass EGD N/A 10/10/2018 Procedure: ESOPHAGOGASTRODUODENOSCOPY; Surgeon: Ben Jensen MD; [place]: [facility] [place]; Service: Gastroenterology EYE SURGERY Right 2015 FOOT SURGERY ORTHOPEDIC SURGERY STENT PLACEMENT Family History Problem Relation Age of Onset No Known Problems Mother Heart disease Father Prostate cancer Brother Cancer Paternal Aunt Social History [1] PHYSICAL EXAM VITALS BP (!) 159/69 (BP Location: Right arm, Patient Position: Sitting) Pulse 78 Temp 97.8 F (36.6 C)(Oral) Resp 18 Ht 6' 2 Wt 113.4 [...] Resource Strain: Low Risk (06/21/2024) Received from [facility] Overall Financial Resource Strain (CARDIA) Difficulty of Paying Living Expenses: Not hard at all Food Insecurity: No Food Insecurity (06/21/2024) Received from [facility] Hunger Vital Sign Worried About Running Out of Food in the Last Year: Never true Ran Out of Food in the Last Year: Never true Transportation Needs: No Transportation Needs (06/21/2024) Received from [facility] PRAPARE - Transportation Lack of Transportation (Medical): No Lack of Transportation (Non-Medical): No Physical Activity: Insufficiently Active (06/21/2024) Received from [facility] Exercise Vital Sign Days of Exercise per Week: 7 days Minutes of Exercise per Session: 10 min Stress: No Stress Concern Present (06/21/2024) Received from [facility] [place] [facility] [employer] - Occupational Stress Questionnaire Feeling of Stress : Not at all Housing Stability: Low Risk (06/21/2024) Received from [facility] Housing Stability Vital Sign Unable to Pay for Housing in the Last Year: No Number of Times Moved in the Last Year: 0 Homeless in the Last Year: No Cosigned by Mohsen Sarabia MD at 03/16/2025 10:33 AM EDT * Muna Otto MD - 03/14/2025 1:21 PM EDT [facility] and Physical Note 03/14/25 Tristin Powell 1940 [id number] Assessment/Plan: Tristin Powell is a 85 y.o. male with a history of Peripheral Artery Disease s/p Bypass, Afib (Xarelto), Diastolic Heart Failure, Coronary Artery Disease s/p CABG, Hypertension, CKD III, COPD, ProstateCancer, and Insomnia. Patient had outpatient angiogram 03/12/25 with balloon angioplasty. He presented to [facility] ED on 03/14/2025 from Vascular Surgery clinic with intractable right foot pain. In ED: right YAMILE 0.5; 50-99% stenosis in right mid superficial femoral artery; WBC 3.5. Course prolonged due to need for angiogram and Xarelto washout. Peripheral Artery Disease: Followed by Dr. Beaver ([facility]) and Dr. Sarabia (Vascular [...] additional for acute pain. CAD: Followed by [facility] s/p 3 vessel coronary artery bypass grafting in 2017 and 7 stents. Chronic Diastolic Heart Failure: TTE 04/2024: LVEF 55% grade 1 diastolic dysfunction, moderate aortic regurgitation, moderate mitral regurgitation, mild tricuspid regurgitation. Appeared euvolemic on admission. Continued home losartan and lasix every other day. Paroxysmal Afib: [id number] of 5. Xarelto as above (no indication for edna- procedural bridging with heparin drip). Continued home lopressor. [...] lovenox. Medication Reconciliation: Reviewed using patient interview, pathological technician Current living situation: home Expected Disposition: [...] Usually does pretty active stuff, able to goout [place] hunting. In last 1-2 months getting more [...] personally discussed with Juana (Peripheral Vascular Cardiology [facility]) and Dr. Barraza (Vascular Surgery) - likely angiogram on Monday; no surgical intervention. ROS: 10 systems were reviewed and negative, except as noted above. Past Medical, Surgical, Social, Family History: Past Medical History: Diagnosis Date Arthritis Avascular necrosis of bone of hip (HCC) Claudication COPD (chronic obstructive pulmonary disease) ([facility]) Coronary artery disease Herpes zoster Hyperlipidemia Hypertension PAD (peripheral artery disease) ([facility]) 01/21/2022 Posterior tibial tendinitis of right leg 11/07/2022 Prostate cancer (HCC) Vascular disease Past Surgical History: Procedure Laterality Date 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/08/2018 Procedure: LEFT MIDFOOT AMPUTATION; Surgeon: Flynn Mann DPM; Location: [facility] OR; Service: Podiatry ANKLE SURGERY Left BYPASS PERONEAL FEMORAL Right 09/07/2018 Procedure: BYPASS PERONEAL FEMORAL, RIGHT SAPHENOUS VEIN HARVEST, COMPLETION ANGIOGRAM; Surgeon: Mohsen Sarabia MD; Location: [facility] NEURO OR; Service: Cardiovascular CARDIAC CATHETERIZATION Left 09/05/2018 Procedure: Angio Lower Extremity; Surgeon: Ben Hahn MD; Location: [facility] 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; Service: Cardiovascular CARDIAC SURGERY 2017 triple bypass EGD N/A 10/10/2018 Procedure: ESOPHAGOGASTRODUODENOSCOPY; Surgeon: Ben Jensen MD; [place]: [facility] [place]; Service: Gastroenterology EYE SURGERY Right 2015 [...] 2 (two) timesa day 1/2 tab . Calmoseptine 0.44-20.6 % [...] by mouth 2 (two) times a day. urea (CARMOL) 40 % Crea zolpidem (AMBIEN) 10 mg tablet Take 1 (one) tablet (10 mg total) by mouth nightly as needed . Physical Exam: BP (!) 159/69 (BP Location: Right arm, Patient Position: Sitting) Pulse 78 Temp 97.8 F (36.6 C)(Oral) Resp 18 Ht 6' 2 Wt 113.4 [...] hesitate to contact me via the [facility] Directory if any errorhas made critical portions of the note difficult to interpret. [1] Social History Socioeconomic History Marital status: Tobacco Use Smoking status: Never Smokeless tobacco: Never Vaping Use Vaping status: Never Used Substance and Sexual Activity Alcohol use: Not Currently Drug use: Never Sexual activity: Not Currently Social Drivers of Health Financial Resource Strain: Low Risk (06/21/2024) Received from [facility] Overall Financial Resource Strain (CARDIA) Difficulty of Paying Living Expenses: Not hard at all Food Insecurity: No Food Insecurity (06/21/2024) Received from [facility] Hunger Vital Sign Worried About Running Out of Food in the Last Year: Never true Ran Out of Food in the Last Year: Never true Transportation Needs: No Transportation Needs (06/21/2024) Received from [facility] PRAPARE - Transportation Lack of Transportation (Medical): No Lack of Transportation (Non-Medical): No Physical Activity: Insufficiently Active (06/21/2024) Received from [facility] Exercise Vital Sign Days of Exercise per Week: 7 days Minutes of Exercise per Session: 10 min Stress: No Stress Concern Present (06/21/2024) Received from [facility] [place] [facility] [employer] - Occupational Stress Questionnaire Feeling of Stress : Not at all Housing Stability: Low Risk (06/21/2024) Received from [facility] Housing Stability Vital Sign Unable to Pay for Housing in the Last Year: No Number of Times Moved in the Last Year: 0 Homeless in the Last Year: No documented in this [id number] Progress note* Quick Note - ByCatina whitney, TECHNOLOGY SERVICES MANAGER - 03/17/2025 9:24 AM EDT Asked to provide cardiac risk stratification for [...] available as needed for any cardiac issues. [id number] [facility] Inpatient Progress Note 03/17/2025 Tristin Powell 1940 [id number] Assessment/Plan: Tristin Powell is a 85 y.o. male with a history of Peripheral Artery Disease s/p Bypass, Afib (Xarelto), Diastolic Heart Failure, Coronary Artery Disease s/p CABG, recent balloon angioplasty 03/12/2025,. presented to [facility] ED on 03/14/2025 from Vascular Surgery clinic with intractable right foot pain. Found to have critical right LE ischemia Critical right lower limb ischemia: History of PAD. Follows Dr. Beaver ([facility]) and Dr. Sarabia (Vascular [...] dose. IV Dilaudid added. CAD: Followed by [facility] s/p 3 vessel coronary artery [...] per Medication Reconciliation: Reviewed using patient interview, pathological technician Current living situation: home Expected Disposition: [...] major joint deformity: RLE tired leg and table tender sludge to touch. Moving well with mild pain.: [...] mg Oral After evening (more content not included)...[facility]07-21-2025 Note* [facility] - Yolanda Mcgee, PT - 03/17/2025 7:25 AM EDT PHYSICAL THERAPY VISIT VARIANCE NOTE Attempted to see patient at this time, but unable secondary to: Awaiting Medical Clearance (comment) (scheduled for OR today). Will follow up as appropriate. [id number] Note* [facility] - Demetrice Rivera OT - 03/17/2025 7:22 AM EDT OCCUPATIONAL THERAPY VISIT VARIANCE NOTE Attempted to see patient at this time, but unable secondary to: Awaiting Medical Clearance (Pending OR today). Will follow up as appropriate. [id number] NoteVASCULAR SURGERY PROGRESS NOTE Patient Name: Tristin Powell [...] (Cornell Borges), left TMA who presented to [facility] on 03/14/2025 with worsening RLE [...] Beena Barraza MD General Surgery Resident, PGY-[address] [facility] Please contact surgical internal control analyst site damage prevention technician 5PM-6AM and weekends - #[phone] VTS Pager - #[phone] Subjective NAEO. Is ready for surgery tomorrow, [...] reviewed AUTHENTICATED BY BEENA BARRAZA, ON 03/16/2025 11:03:23[facility]07-20-2025 NoteEndovascular team note: I have seen and examined [...] and rubor. He had undergone angiography in [place], with chronic occlusion of an aneurysm/ectatic right [...] option. AUTHENTICATED BY MARY MAST, ON 03/16/2025 10:52:42[facility]07-20-2025 [facility] Inpatient Progress Note 03/16/2025 Tristin Powell 1940 [id number] Assessment/Plan: Tristin Powell is a 85 y.o. male with a history of Peripheral Artery Disease s/p Bypass, Afib (Xarelto), Diastolic Heart Failure, Coronary Artery Disease s/p CABG, Hypertension, CKD III, COPD, Prostate Cancer, and Insomnia. Patient had outpatient angiogram 03/12/25 with balloon angioplasty. He presented to [facility] ED on 03/14/2025 from Vascular Surgery clinic with intractable right foot pain. In ED: right YAMILE 0.5; 50-99% stenosis in right mid superficial femoral artery; WBC 3.5. Course prolonged due to need for angiogram and Xarelto washout. Peripheral Artery Disease: Followed by Dr. Beaver ([facility]) and Dr. Sarabia (Vascular [...] additional for acute pain. CAD: Followed by [facility] s/p 3 vessel coronary artery [...] GTT Medication Reconciliation: Reviewed using patient interview, pathological technician Current living situation: home Expected Disposition: [...] major joint deformity: RLE tired leg and table tender sludge to touch. Moving well with mild pain.: [...] K/mcL 159 -- 144* (more content not included)...[facility] 03-15-2025 Progress note* Quick Note - Yarely Mccarty RN - 03/15/2025 4:49 PM EDT Bedside report was completed including the discussion [...] Verified by note author and VAN Jean. [id number] Consult note* Joanna Prakash LSW - 03/15/2025 12:32 PM EDTAssociated Order(s): IP CONSULT TO CARE MANAGEMENT Care Management Consult Note Date: 03/15/2025 Time: 12:32 PM Patient Name: Tristin Powell Date of : 1940 Reason for Consult: Discharge Plan: D/C Disposition: Home Health Care Services Related to Current Admission?: Yes Plan A: Home Health Care Services Plan B: Home Discharging Transportation Plan: Transportation Type: Auto Discharge Plan Status: DRY BOX TENDER consulted for discharge needs. PT recommending therapy 2-3 days per week. OT pending. DRY BOX TENDER met with pt at bedside to discuss HHC level of care. Pt agreeable HHC. Pt with no [preference of agency. Pt's son will be primary caregiver upon discharge and will transport pt home when medically ready. DRY BOX TENDER confirmed pt demographics including address on [...] impact how we deliver your care?: No [id number] [facility] Inpatient Progress Note 03/15/2025 Tristin Powell 1940 [id number] Assessment/Plan: Tristin Powell is a 85 y.o. male with a history of Peripheral Artery Disease s/p Bypass, Afib (Xarelto), Diastolic Heart Failure, Coronary Artery Disease s/p CABG, Hypertension, CKD III, COPD, Prostate Cancer, and Insomnia. Patient had outpatient angiogram 03/12/25 with balloon angioplasty. He presented to [facility] ED on 03/14/2025 from Vascular Surgery clinic with intractable right foot pain. In ED: right YAMILE 0.5; 50-99% stenosis in right mid superficial femoral artery; WBC 3.5. Course prolonged due to need for angiogram and Xarelto washout. Peripheral Artery Disease: Followed by Dr. Beaver ([facility]) and Dr. Sarabia (Vascular [...] additional for acute pain. CAD: Followed by [facility] s/p 3 vessel coronary artery [...] GTT Medication Reconciliation: Reviewed using patient interview, pathological technician Current living situation: home Expected Disposition: [...] major joint deformity: RLE tired leg and table tender sludge to touch. Moving well with mild pain.: [...] HGB g/dL 11.7* 13.2* (more content not included)...[facility]07-19-2025 Consult note* Nataly Shin, PT - 03/15/2025 9:15 AM EDT Physical Therapy PHYSICAL THERAPY EVALUATION and TREATMENT NOTE PHYSICAL THERAPY EVALUATION Skilled Therapy Needs After Discharge Anticipate Resolution of Current Assessment Limitations Including: Mechanical Barriers, Pain Are cause analyst Therapy Services Needed After Discharge: Yes Intensity of cause analyst Therapy: 2-3 days per week Anticipated Duration of cause analyst Therapy: Duration 10 - 30 days PT [...] limitations of Gait, Stair-Climbing, Safety, Safety Awareness, ActivityTolerance, Insight. These impairments result in restrictions of [...] Standing Balance - Static: Contact guard assist Oxyacetylene Welder - Standing Static: wheeled walker Standing Balance - Dynamic: Contact guard assist Oxyacetylene Welder - Standing Dynamic: same braid pattern setter used for static standing tasks Bed Mobility Rolling: Supervision Supine to Sit: Supervision Sit to Supine: (patient sitting EOB) Oxyacetylene Welder: bedrails Transfers Sit to Stand: Contact guard assist Oxyacetylene Welder: wheeled walker Gait/Locomotion Gait Assistance: Contact guard [...] walker.) Prior Level of Function Level of [place] - Transfers/Ambulation/Mobility: Independent with community ambulation, Independent with household ambulation, Independent with functional transfers Level of [place] - ADLs: Independent Level of [place] - Homemaking: Independent Driving: Patient drives Vocational: [...] of bone of hip ([facility]) Claudication COPD (chronic obstructive pulmonary disease) ([facility]) Coronary artery disease Herpes zoster Hyperlipidemia Hypertension PAD (peripheral artery disease) ([facility]) 01/21/2022 Posterior tibial tendinitis of right leg 11/07/2022 Prostate cancer ([facility]) Vascular disease Past Surgical History: Procedure Laterality Date 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/08/2018 Procedure: LEFT MIDFOOT AMPUTATION; Surgeon: Flynn Mann DPM; Location: [facility] OR; Service: Podiatry ANKLE SURGERY Left BYPASS PERONEAL FEMORAL Right 09/07/2018 Procedure: BYPASS PERONEAL FEMORAL, RIGHT SAPHENOUS VEIN HARVEST, COMPLETION ANGIOGRAM; Surgeon: Mohsen Sarabia MD; Location: [facility] NEURO OR; Service: Cardiovascular CARDIAC CATHETERIZATION Left 09/05/2018 Procedure: Angio Lower Extremity; Surgeon: Ben Hahn MD; Location: [facility] 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; Service: Cardiovascular CARDIAC SURGERY 2017 triple bypass EGD N/A 10/10/2018 Procedure: ESOPHAGOGASTRODUODENOSCOPY; Surgeon: Ben Jensen MD; [place] [facility] [place]; Service: Gastroenterology EYE SURGERY Right 2015 [...] hospital or completion of Physical Therapy Plan. [id number] NotePeripheral Vascular Cardiology Inpatient Follow-up Heart & Vascular [facility] 03/15/2025 Mirna Fenton [facility] Patient: Tristin Powell Date of : 1940 (85 y.o.) PCP: Flash Lovelace MD Assessment/Plan: Carotid stenosis, asymptomatic, bilateral Assessment & Plan Asymptomatic. No hx of CVA Non-invasive Studies: Carotid Duplex (04/2024): Left ICA with mild <50% stenosis of heterogenous plaque. Right ICA with moderate 50-69% stenosis of heterogenous plaque Coronary artery disease involving coronary bypass graft of [place] heart without angina pectoris Assessment & Plan [...] Recently underwent RLE angio on 03/12/25 via [facility] in [place] Non-invasive Studies: RLE arterial duplex (03/14/25): 50-99% [...] dated 03/12/25 and 10/12/23 from [facility]. Plan for RLE angio +/- intervention 03/17/25, [...] Final Result by Interface, Lab Results In [place] Py[facility] (03/15/2025 0701) Echocardiogram complete w contrast [...] Oral Q4H While a (more content not included)...[facility]07-18-2025 Emergency department Note* Tiburcio Damon RN - 03/14/2025 5:53 PM EDT Pt placed on 2L NC now [id number] Emergency department Note* Tiburcio Damon RN - 03/14/2025 5:53 PM EDT Pt placed on 2L NC now * Lorena Bethea - 03/14/2025 1:14 PM EDT MEDONE to write admission orders [id number] * Elaine Macdonald MD - 03/14/2025 12:26 PM EDT ED PROVIDER NOTE [facility] EMERGENCY DEPARTMENT Patient Name: Tristin Powell Age: 85 y.o. : 1940 ED Visit Date: 03/14/25 Chief Complaint Patient presents with Leg Pain HPI / ROS 85-year-old male with history of peripheral artery disease and other medical problems who underwentbypass perineal femoral right saphenous vein with Dr. [...] today and was referred down to the EDand advised to be hospitalized. He states he [...] established and blood work sent to the lab.Patient was given Dilaudid for pain. Vascular surgery was consulted-they will come and evaluate the patient and determine whether he needs to be placed on heparin. They request that he be admitted to medical service. Laboratory studies include a chemistry significant only for glucose of 100. INR is 1.1. White count3.5, hemoglobin 13.2 and platelets 175. ED Course as of 03/14/25 1327 MonMar 14, 2025 1326 Vascular surgery recommended PV cardiology consultation- I spoke with them in consult. They will see patient. [EK] ED Course User Index [EK] Elaine Macdonald MD [facility] Data: I saw and evaluated the [...] 113.4 kg (250 lb) - Refer to [facility] section above for additional physical exam [...] of bone of hip ([facility]) Claudication COPD (chronic obstructive pulmonary disease) ([facility]) Coronary artery disease Herpes zoster Hyperlipidemia Hypertension PAD (peripheral artery disease) ([facility]) 01/21/2022 Posterior tibial tendinitis of right leg 11/07/2022 Prostate cancer ([facility]) Vascular disease Past Surgical History: Procedure Laterality Date 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/08/2018 Procedure: LEFT MIDFOOT AMPUTATION; Surgeon: Flynn Mann DPM; Location: [facility] OR; Service: Podiatry ANKLE SURGERY Left BYPASS PERONEAL FEMORAL Right 09/07/2018 Procedure: BYPASS PERONEAL FEMORAL, RIGHT SAPHENOUS VEIN HARVEST, COMPLETION ANGIOGRAM; Surgeon: Mohsen Sarabia MD; Location: [facility] NEURO OR; Service: Cardiovascular CARDIAC CATHETERIZATION Left 09/05/2018 Procedure: Angio Lower Extremity; Surgeon: Ben Hahn MD; Location: [facility] 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; Service: Cardiovascular CARDIAC SURGERY 2017 triple bypass EGD N/A 10/10/2018 Procedure: ESOPHAGOGASTRODUODENOSCOPY; Surgeon: Ben Jensen MD; Location: [facility] [place]; Service: Gastroenterology EYE SURGERY Right 2015 [...] 2 (two) timesa day 1/2 tab . CALMOSEPTINE 0.44-20.6 % OINT FLUTICASONE (FLONASE) 50 MCG/ACTUATION NASAL SPRAY 2 (two) sprays by Each Nare route daily . IPRATROPIUM-ALBUTEROL (DUO-NEB) 0.5-2.5 MG/3 ML NEBULIZER Take 3 mL by nebulization 3 (three) timesa day . LOSARTAN (COZAAR) 50 MG TABLET [...] by mouth 2 (two) times a day. UREA (CARMOL) 40 % CREA ZOLPIDEM (AMBIEN) [...] correspondence this note was partially generated by [employer] voice recognition software and is inherently subject to errors including those of syntax and sound-alike substitutions which may escape proofreading. In such instances, original meaning may be extrapolated by contextual derivation. Elaine Macdonald MD 03/14/25 0606 [1] Social History Socioeconomic History Marital status: Tobacco Use Smoking status: Never Smokeless tobacco: Never Vaping Use Vaping status: Never Used Substance and Sexual Activity Alcohol use: Not Currently Drug use: Never Sexual activity: Not Currently Social Drivers of Health Financial Resource Strain: Low Risk (06/21/2024) Received from [facility] Overall Financial Resource Strain (CARDIA) Difficulty of Paying Living Expenses: Not hard at all Food Insecurity: No Food Insecurity (06/21/2024) Received from [facility] Hunger Vital Sign Worried About Running Out of Food in the Last Year: Never true Ran Out of Food in the Last Year: Never true Transportation Needs: No Transportation Needs (06/21/2024) Received from [facility] PRAPARE - Transportation Lack of Transportation (Medical): No Lack of Transportation (Non-Medical): No Physical Activity: Insufficiently Active (06/21/2024) Received from [facility] Exercise Vital Sign Days of Exercise per Week: 7 days Minutes of Exercise per Session: 10 min Stress: No Stress Concern Present (06/21/2024) Received from [facility] [place] [employer] - Occupational Stress Questionnaire Feeling of Stress : Not at all Housing Stability: Low Risk (06/21/2024) Received from [facility] Housing Stability Vital Sign Unable to Pay for Housing in the Last Year: No Number of Times Moved in the Last Year: 0 Homeless in the Last Year: No [2] Allergies Allergen Reactions Doxycycline Elevated blood pressure, GI intolerance/ nausea/vomiting Gabapentin GI Intolerance * Mikey Cadena RN - 03/14/2025 11:05 AM EDT Images from the original note [...] All Patient Name: Tristin Powell MR #: [id number] Subjective: office nurse received call from daughter who expressed concern about patient losing hisfoot- he is in dire pain and his toes on his right foot are turning purple. Dr. Sarabia requested USDuplex Arterial RLE and ABIs, and here for office visit today documented in this [id number] Progress note* Quick Note - Demetrice Escobar CNP - 03/14/2025 4:35 PM EDT Added to labor economics teacher schedule for 03/17/25, with Dr. Mast for a RLE angio +/- intervention. Orders placed. Consent signed and given to labor economics teacher. ASA and clopidogrel initiated. Again, no heparin gtt required unless needed in the setting of hx of paroxysmal a.fib (historicallyon Xarelto; however, has been held over the past week 2/2 RLE angio at [facility] as performed on 03/12/25). Additionally, please accept [...] grossly insensate from toes to the ankle. [id number] Progress note* Quick Note - Iris Baxter RN - 03/14/2025 3:49 PM EDT This nurse was able to get RLE angiogram from March 12, 2025 from [facility] sent electronically. This was sent to Juana Escobar NP. She was able to open and view. Images sent to appropriate staff per Juana Escobar CNP. Called and notified the patient's daughter that she does not have to get the disc from [facility] to [facility]. [id number] Evaluation + Plan note* Assessment & Plan Note - Demetrice Escobar CNP - 03/14/2025 3:32 PM EDTAssociated Problem(s): Carotid stenosis, asymptomatic, bilateral Asymptomatic. No hx of CVA Non-invasive Studies: Carotid Duplex (04/2024): Left ICA with mild <50% stenosis of heterogenous plaque. Right ICA with moderate 50-69% stenosis of heterogenous plaque [id number] Evaluation + Plan note* Assessment & Plan Note - Demetrice Escobar CNP - 03/14/2025 3:30 PM EDTAssociated Problem(s): Coronary artery disease involving coronary bypass graft of [place] heart without angina pectoris S/p 3v CABG in 2017 Asymptomatic [id number] Evaluation + Plan note* Assessment & Plan Note - Mirna Fenton CNP - 03/14/2025 3:26 PM EDTAssociated Problem(s): Critical lower limb ischemia (HCC) Presents from Dr. 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 (uses a LLE ankle/foot prosthesis to help with ambulation) Recently underwent RLE angio on 03/12/25 via [facility] in [place] Non-invasive Studies: RLE arterial duplex (03/14/25): 50-99% [...] will continue to monitor over the weekend [id number] Evaluation + Plan note* Assessment & Plan Note - Demetrice Escobar CNP - 03/14/2025 3:18 PM EDTAssociated Problem(s): PAD (peripheral artery disease) (HCC) Longstanding, significant atherosclerotic disease with history of multiple endovascular and surgical interventions as outlined in the body of this note, please reference Plan: Continue ASA and statin therapies as prescribed. [id number] Consult note* Demetrice Escobar CNP - 03/14/2025 1:33 PM EDTAssociated Order(s): IP CONSULT TO CARDIOLOGY - PERIPHERAL VASC DISEASE Images from the original note were not included. Peripheral Vascular Cardiology Inpatient Consult Heart & Vascular [facility] 03/14/2025 Demetrice Escobar CNP [address] [facility] [address] Patient: Tristin Powell Date of : 1940 [...] Recently underwent RLE angio on 03/12/25 via [facility] in [place] Non-invasive Studies: RLE arterial duplex (03/14/25): 50-99% [...] dated 03/12/25 and 10/12/23 from [facility]. Will review non-invasive studies as obtained earlier today as well as [facility] RLE angiograms with PV attending. Final disposition relative to request for repeat RLE angio +/- intervention to follow in PVattending attestation. Reason for consult: Leg Pain HPI: [...] no surgical options, PV consult recommended by [facility] Surg for consideration of LE angio. By chart review, recently underwent formal LE angio on 03/12/25 via [facility]. Follows with Dr. Juarez, cardiology, at [facility]. Last OV 11/2024. Son is present at bedside. He relates to longstanding RLE claudication within the calf and foot which has slowly progressed over the last 6 months, most intensely - to the point of non- weight bearing and/or limited weight bearing + discoloration over the last week. He has been off of his rivaroxaban (Xarelto) for the last 4-5 days in preparation for the angio he just underwent 2 days ago. He admits to ischemic rest pain overnight x several months with minimal improvement when the leg isplaced in a dependent position. He adds the [...] was drawn out. Relevant Vascular History: 06/2024: [facility] demonstrating stable coronary artery disease. Patent [...] SVG to PDA) via [facility] 10/2007: [facility] with MARIA ESTHER to LAD and LCx Objective Imaging: I independently reviewed the non-invasive vascular studies and agree with the interpretation(s) ECG 12 Lead Final Result by Interface, Lab Results In [place] [facility] (11/07/2022 1139) Echocardiogram complete w contrast [...] of bone of hip ([facility]) Claudication COPD (chronic obstructive pulmonary disease) ([facility]) Coronary artery disease Herpes zoster Hyperlipidemia Hypertension PAD (peripheral artery disease) ([facility]) 01/21/2022 Posterior tibial tendinitis of right leg 11/07/2022 Prostate cancer (HCC) Vascular disease Past Surgical History: Procedure Laterality Date 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/08/2018 Procedure: LEFT MIDFOOT AMPUTATION; Surgeon: Flynn Mann DPM; Location: [facility] OR; Service: Podiatry ANKLE SURGERY Left BYPASS PERONEAL FEMORAL Right 09/07/2018 Procedure: BYPASS PERONEAL FEMORAL, RIGHT SAPHENOUS VEIN HARVEST, COMPLETION ANGIOGRAM; Surgeon: Mohsen Sarabia MD; Location: [facility] NEURO OR; Service: Cardiovascular CARDIAC CATHETERIZATION Left 09/05/2018 Procedure: Angio Lower Extremity; Surgeon: Ben Hahn MD; Location: [facility] 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; Service: Cardiovascular CARDIAC SURGERY 2017 triple bypass EGD N/A 10/10/2018 Procedure: ESOPHAGOGASTRODUODENOSCOPY; Surgeon: Ben Jensen MD; Location: [facility] [place]; Service: Gastroenterology EYE SURGERY Right 2015 [...] (40 mg total) by mouth 2 (two) timesa day 1/2 tab . AZELASTINE (ASTELIN) 137 [...] mg total) by mouth daily as needed Reasons:visible water retention. IPRATROPIUM-ALBUTEROL (DUO-NEB) 0.5-2.5 MG/3 ML NEBULIZER Take 3 mL by nebulization 3 (three) timesa day . LOSARTAN (COZAAR) 50 MG TABLET [...] by mouth 2 (two) times a day. TAMSULOSIN (FLOMAX) 0.4 MG CAPSULE Take 1 [...] Sitting) Pulse 78 Temp 97.8 F (36.6 C)(Oral) Resp 18 Ht 6' 2 Wt 113.4 [...] erythema/dependent rubor, and edema of the right foot.Dorsal surface: insensate to until the arch. Plantar [...] to contact me, my mobile number is [phone]. Respectfully, Demetrice Martinez APRN [facility] [1] Social History [...] hyperlipidemia, heart failure with preserved ejection fraction, paroxysmalatrial fibrillation, and advanced PAD who presents with [...] He underwent [place]was found to have progressive disease in his distal SFA and a known occlusion of his mid right popliteal artery with reconstitution of the peroneal vessel only. The SFA underwent balloon angioplasty to improve geniculate blood flow but unfortunately he remains extremely ischemic. His YAMILE 0.5 on theright lower extremity with flat transmetatarsal and toe waveforms. Past Medical History: Diagnosis Date Arthritis Avascular necrosis of bone of hip ([facility]) Claudication COPD (chronic obstructive pulmonary disease) ([facility]) Coronary artery disease Herpes zoster Hyperlipidemia Hypertension PAD (peripheral artery disease) ([facility]) 01/21/2022 Posterior tibial tendinitis of right leg 11/07/2022 Prostate cancer ([facility]) Vascular disease Allergies: Doxycycline and Gabapentin Current [...] artery as it enters the foot. Impression: [place] 4 critical limb threatening ischemia Advanced peripheral [...] is clearly a size discrepancy in the long- term durability is likely to be poor. All [...] vascular surgery colleagues I personally performed a [id number] diagnostic evaluation on this patient on the [...] (40 mg total) by mouth 2 (two) timesa day 1/2 tab . azelastine (ASTELIN) 137 [...] mg total) by mouth daily as needed Reasons:visible water retention. losartan (COZAAR) 50 MG tablet [...] by mouth 2 (two) times a day. tamsulosin (FLOMAX) 0.4 mg capsule Take 1 [...] by nebulization 3 (three) timesa day . nitroGLYCERIN (NITROSTAT) 0.[address] 1 tablet as needed by sublingual route. ondansetron (ZOFRAN) 4 MG tablet pneumococcal conj. 13-valent (Prevnar 13, PF,) 0.5 mL vaccine urea (CARMOL) 40 % Crea [id number] History and physical note* Muna Otto MD - 03/14/2025 1:21 PM EDT [facility] History and Physical Note 03/14/25 Tristin Powell 1940 [id number] Assessment/Plan: Tristin Powell is a 85 y.o. male with a history of Peripheral Artery Disease s/p Bypass, Afib (Xarelto), Diastolic Heart Failure, Coronary Artery Disease s/p CABG, Hypertension, CKD III, COPD, ProstateCancer, and Insomnia. Patient had outpatient angiogram 03/12/25 with balloon angioplasty. He presented to [facility] ED on 03/14/2025 from Vascular Surgery clinic with intractable right foot pain. In ED: right YAMILE 0.5; 50-99% stenosis in right mid superficial femoral artery; WBC 3.5. Course prolonged due to need for angiogram and Xarelto washout. Peripheral Artery Disease: Followed by Dr. Beaver ([facility]) and Dr. Sarabia (Vascular [...] additional for acute pain. CAD: Followed by [facility] s/p 3 vessel coronary artery bypass grafting in 2017 and 7 stents. Chronic Diastolic Heart Failure: TTE 04/2024: LVEF 55% grade 1 diastolic dysfunction, moderate aortic regurgitation, moderate mitral regurgitation, mild tricuspid regurgitation. Appeared euvolemic on admission. Continued home losartan and lasix every other day. Paroxysmal Afib: [id number] of 5. Xarelto as above (no indication for edna- procedural bridging with heparin drip). Continued home lopressor. [...] lovenox. 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 In last 1-2 months getting [...] personally discussed with Juana (Peripheral Vascular Cardiology TECHNOLOGY SERVICES MANAGER) and Dr. Barraza (Vascular Surgery) - likely angiogram on Monday; no surgical intervention. ROS: 10 systems were reviewed and negative, except as noted above. Past Medical, Surgical, Social, Family History: Past Medical History: Diagnosis Date Arthritis Avascular necrosis of bone of hip (HCC) Claudication COPD (chronic obstructive pulmonary disease) ([facility]) Coronary artery disease Herpes zoster Hyperlipidemia Hypertension PAD (peripheral artery disease) ([facility]) 01/21/2022 Posterior tibial tendinitis of right leg 11/07/2022 Prostate cancer (HCC) Vascular disease Past Surgical History: Procedure Laterality Date 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/08/2018 Procedure: LEFT MIDFOOT AMPUTATION; Surgeon: Flynn Mann DPM; Location: [facility] OR; Service: Podiatry ANKLE SURGERY Left BYPASS PERONEAL FEMORAL Right 09/07/2018 Procedure: BYPASS PERONEAL FEMORAL, RIGHT SAPHENOUS VEIN HARVEST, COMPLETION ANGIOGRAM; Surgeon: Mohsen Sarabia MD; Location: [facility] NEURO OR; Service: Cardiovascular CARDIAC CATHETERIZATION Left 09/05/2018 Procedure: Angio Lower Extremity; Surgeon: Ben Hahn MD; Location: [facility] 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; Service: Cardiovascular CARDIAC SURGERY 2017 triple bypass EGD N/A 10/10/2018 Procedure: ESOPHAGOGASTRODUODENOSCOPY; Surgeon: Ben Jensen MD; Location: [facility] [place]; Service: Gastroenterology EYE SURGERY Right 2015 [...] 2 (two) timesa day 1/2 tab . Calmoseptine 0.44-20.6 % [...] by mouth 2 (two) times a day. urea (CARMOL) 40 % Crea zolpidem (AMBIEN) [...] hesitate to contact me via the [facility] Directory if any errorhas made critical portions of the note difficult to interpret. [1] Social History Socioeconomic History Marital status: Tobacco Use Smoking status: Never Smokeless tobacco: Never Vaping Use Vaping status: Never Used Substance and Sexual Activity Alcohol use: Not Currently Drug use: Never Sexual activity: Not Currently Social Drivers of Health Financial Resource Strain: Low Risk (06/21/2024) Received from [facility] Overall Financial Resource Strain (CARDIA) Difficulty of Paying Living Expenses: Not hard at all Food Insecurity: No Food Insecurity (06/21/2024) Received from [facility] Hunger Vital Sign Worried About Running Out of Food in the Last Year: Never true Ran Out of Food in the Last Year: Never true Transportation Needs: No Transportation Needs (06/21/2024) Received from [facility] PRAPARE - Transportation Lack of Transportation (Medical): No Lack of Transportation (Non-Medical): No Physical Activity: Insufficiently Active (06/21/2024) Received from [facility] Exercise Vital Sign Days of Exercise per Week: 7 days Minutes of Exercise per Session: 10 min Stress: No Stress Concern Present (06/21/2024) Received from [facility] [place] [employer] - Occupational Stress Questionnaire Feeling of Stress : Not at all Housing Stability: Low Risk (06/21/2024) Received from [facility] Housing Stability Vital Sign Unable to Pay for Housing in the Last Year: No Number of Times Moved in the Last Year: 0 Homeless in the Last Year: No [id number] Note[facility] History and Physical Note 03/14/25 Tristin Powell 1940 [id number] Assessment/Plan: Tristin Powell is a 85 y.o. male with a history of Peripheral Artery Disease s/p Bypass, Afib (Xarelto), Diastolic Heart Failure, Coronary Artery Disease s/p CABG, Hypertension, CKD III, COPD, Prostate Cancer, and Insomnia. Patient had outpatient angiogram 03/12/25 with balloon angioplasty. He presented to [facility] ED on 03/14/2025 from Vascular Surgery clinic with intractable right foot pain. In ED: right YAMILE 0.5; 50-99% stenosis in right mid superficial femoral artery; WBC 3.5. Course prolonged due to need for angiogram and Xarelto washout. Peripheral Artery Disease: Followed by Dr. Beaver ([facility]) and Dr. Sarabia (Vascular [...] additional for acute pain. CAD: Followed by [facility] s/p 3 vessel coronary artery bypass grafting in 2017 and 7 stents. Chronic Diastolic Heart Failure: TTE 04/2024: LVEF 55% grade 1 diastolic dysfunction, moderate aortic regurgitation, moderate mitral regurgitation, mild tricuspid regurgitation. Appeared euvolemic on admission. Continued home losartan and lasix every other day. Paroxysmal Afib: [id number] of 5. Xarelto as above (no indication [...] lovenox. Medication Reconciliation: Reviewed using patient interview, pathological technician Current living situation: home Expected Disposition: [...] personally discussed with Juana (Peripheral Vascular Cardiology TECHNOLOGY SERVICES MANAGER) and Dr. Barraza (Vascular Surgery) - likely angiogram on Monday; no surgical intervention. ROS: 10 systems were reviewed and negative, (more content not included)...[facility]07-18-2025 Emergency department Note* Lorena Bethea - 03/14/2025 1:14 PM EDT MED[facility] to write admission orders [id number] Physician Emergency department Note* Elaine Macdonald MD - 03/14/2025 12:26 PM EDT ED PROVIDER NOTE [facility] EMERGENCY DEPARTMENT Patient Name: Tristin Powell Age: 85 y.o. : 1940 ED Visit Date: 03/14/25 Chief Complaint Patient presents with Leg Pain HPI / ROS 85-year-old male with history of peripheral artery disease and other medical problems who underwentbypass perineal femoral right saphenous vein with Dr. [...] today and was referred down to the EDand advised to be hospitalized. He states he [...] established and blood work sent to the lab.Patient was given Dilaudid for pain. Vascular surgery was consulted-they will come and evaluate the patient and determine whether he needs to be placed on heparin. They request that he be admitted to medical service. Laboratory studies include a chemistry significant only for glucose of 100. INR is 1.1. White count3.5, hemoglobin 13.2 and platelets 175. ED Course as of 03/14/25 1327 MonMar 14, 2025 1326 Vascular surgery recommended PV cardiology consultation- I spoke with them in consult. They will see patient. [EK] ED Course User Index [EK] Elaine Macdonald MD [facility] Data: I saw and evaluated the [...] 113.4 kg (250 lb) - Refer to [facility] section above for additional physical exam [...] of bone of hip ([facility]) Claudication COPD (chronic obstructive pulmonary disease) ([facility]) Coronary artery disease Herpes zoster Hyperlipidemia Hypertension PAD (peripheral artery disease) ([facility]) 01/21/2022 Posterior tibial tendinitis of right leg 11/07/2022 Prostate cancer ([facility]) Vascular disease Past Surgical History: Procedure Laterality Date 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/08/2018 Procedure: LEFT MIDFOOT AMPUTATION; Surgeon: Flynn Mann DPM; Location: [facility] OR; Service: Podiatry ANKLE SURGERY Left BYPASS PERONEAL FEMORAL Right 09/07/2018 Procedure: BYPASS PERONEAL FEMORAL, RIGHT SAPHENOUS VEIN HARVEST, COMPLETION ANGIOGRAM; Surgeon: Mohsen Sarabia MD; Location: [facility] NEURO OR; Service: Cardiovascular CARDIAC CATHETERIZATION Left 09/05/2018 Procedure: Angio Lower Extremity; Surgeon: Ben Hahn MD; Location: [facility] 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; Service: Cardiovascular CARDIAC SURGERY 2017 triple bypass EGD N/A 10/10/2018 Procedure: ESOPHAGOGASTRODUODENOSCOPY; Surgeon: Ben Jensen MD; Location: [facility] [place]; Service: Gastroenterology EYE SURGERY Right 2015 [...] 2 (two) timesa day / tab . CALMOSEPTINE 0.44-20.6 % OINT FLUTICASONE (FLONASE) 50 MCG/ACTUATION NASAL SPRAY 2 (two) sprays by Each Nare route daily . IPRATROPIUM-ALBUTEROL (DUO-NEB) 0.5-2.5 MG/3 ML NEBULIZER Take 3 mL by nebulization 3 (three) timesa day . LOSARTAN (COZAAR) 50 MG TABLET [...] by mouth 2 (two) times a day. UREA (CARMOL) 40 % CREA ZOLPIDEM (AMBIEN) [...] correspondence this note was partially generated by [employer] voice recognition software and is inherently subject [...] Resource Strain: Low Risk (06/21/2024) Received from [facility] Overall Financial Resource Strain (CARDIA) Difficulty of Paying Living Expenses: Not hard at all Food Insecurity: No Food Insecurity (06/21/2024) Received from [facility] Hunger Vital Sign Worried About Running Out of Food in the Last Year: Never true Ran Out of Food in the Last Year: Never true Transportation Needs: No Transportation Needs (06/21/2024) Received from [facility] PRAPARE - Transportation Lack of Transportation (Medical): No Lack of Transportation (Non-Medical): No Physical Activity: Insufficiently Active (06/21/2024) Received from [facility] Exercise Vital Sign Days of Exercise per Week: 7 days Minutes of Exercise per Session: 10 min Stress: No Stress Concern Present (06/21/2024) Received from [facility] [place] [employer] - Occupational Stress Questionnaire Feeling of Stress : Not at all Housing Stability: Low Risk (06/21/2024) Received from [facility] Housing Stability Vital Sign Unable to Pay for Housing in the Last Year: No Number of Times Moved in the Last Year: 0 Homeless in the Last Year: No [2] Allergies Allergen Reactions Doxycycline Elevated blood pressure, GI intolerance/ nausea/vomiting Gabapentin GI Intolerance [id number] History of Present illness Narrative* Ludivina Garcia RN - 03/14/2025 12:05 PM EDT STAT Medical Records Release form faxed to [phone]. Fax confirmation received. documented in this [id number] Consult note* Beena Barraza MD - 03/14/2025 11:56 AM [...] (2018, [place]), left TMA who presented to [facility] on 03/14/2025 with worsening RLE pain and discoloration. Arterial Duplex (03/14/25): 50-99% stenosis in the right mid SFA YAMILE's (03/14/25): Right YAMILE is 0.50. Left YAMILE is 0.55. CTLI IV Aortic Stenosis -Patient w/ notable history of PAD s/p left fem to peroneal bypass (2018, [place]) p/w RLE rest painx 3 days. Work up concerning for SFA [...] pending above work up -Discussed with Dr. aSrabia Beena Barraza MD General Surgery Resident, PGY-[address] [facility] Please contact surgical internal control analyst site damage prevention technician 5PM-6AM and weekends - #[phone] TXS Pager - #[phone] Admitted with these risk variables:None. Please see assessment and plan for further details. HISTORY OF PRESENT ILLNESS Over last three weeks developed some numbness and burning in his right foot, which acutely worsened5 days ago. It has since been constant, [...] of bone of hip ([facility]) Claudication COPD (chronic obstructive pulmonary disease) ([facility]) Coronary artery disease Herpes zoster Hyperlipidemia Hypertension PAD (peripheral artery disease) ([facility]) 01/21/2022 Posterior tibial tendinitis of right leg 11/07/2022 Prostate cancer ([facility]) Vascular disease Past Surgical History: Procedure Laterality Date 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/08/2018 Procedure: LEFT MIDFOOT AMPUTATION; Surgeon: Flynn Mann DPM; Location: [facility] OR; Service: Podiatry ANKLE SURGERY Left BYPASS PERONEAL FEMORAL Right 09/07/2018 Procedure: BYPASS PERONEAL FEMORAL, RIGHT SAPHENOUS VEIN HARVEST, COMPLETION ANGIOGRAM; Surgeon: Mohsen Sarabia MD; Location: [facility] NEURO OR; Service: Cardiovascular CARDIAC CATHETERIZATION Left 09/05/2018 Procedure: Angio Lower Extremity; Surgeon: Ben Hahn MD; 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: [facility] 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; Service: Cardiovascular CARDIAC SURGERY 2017 triple bypass EGD N/A 10/10/2018 Procedure: ESOPHAGOGASTRODUODENOSCOPY; Surgeon: Ben Jensen MD; Location: [facility] [place]; Service: Gastroenterology EYE SURGERY Right 2015 FOOT SURGERY ORTHOPEDIC SURGERY STENT PLACEMENT Family History Problem Relation Age of Onset No Known Problems Mother Heart disease Father Prostate cancer Brother Cancer Paternal Aunt Social History [1] PHYSICAL EXAM VITALS BP (!) 159/69 (BP Location: Right arm, Patient Position: Sitting) Pulse 78 Temp 97.8 F (36.6 C)(Oral) Resp 18 Ht 6' 2 Wt 113.4 [...] Resource Strain: Low Risk (06/21/2024) Received from [facility] Overall Financial Resource Strain (CARDIA) Difficulty of Paying Living Expenses: Not hard at all Food Insecurity: No Food Insecurity (06/21/2024) Received from [facility] Hunger Vital Sign Worried About Running Out of Food in the Last Year: Never true Ran Out of Food in the Last Year: Never true Transportation Needs: No Transportation Needs (06/21/2024) Received from [facility] PRAPARE - Transportation Lack of Transportation (Medical): No Lack of Transportation (Non-Medical): No Physical Activity: Insufficiently Active (06/21/2024) Received from [facility] Exercise Vital Sign Days of Exercise per Week: 7 days Minutes of Exercise per Session: 10 min Stress: No Stress Concern Present (06/21/2024) Received from [facility] [place] [employer] - Occupational Stress Questionnaire Feeling of Stress : Not at all Housing Stability: Low Risk (06/21/2024) Received from [facility] Housing Stability Vital Sign Unable [...] personally examined the patient and agree with resident/MINIATURE MODEL MAKER/PA assessment and plan with the following additional findings. Pt known to me with CLTI of the RLE with rest pain and early ischemic skin changes. Plan for R fem tib bypass on Monday for limb salvage [id number] History of Present illness Narrative* Ludivina Garcia RN - 03/14/2025 11:12 AM EDT Spoke with Edwina from Medical Records from [facility] to obtain RLE Angiogram from 03/12/25. This Nurse was informed that for imaging if daughter is not POA that the patient would need to sign a release form and have the patient's sign it. She explained to this Nurse that the form will be faxed to [phone]. Edwina also informed this Nurse that they will fax the report for the RLE Angiogram once it is signed. This Nurse verbalized understanding and explained to Edwina that our office will reach out to the daughter to have her fruit picker machine operator the disc for the imaging of RLE Angiogram. Edwina verbalized understanding. All questions answered. documented in this [id number] Emergency department Triage note* Mikey Cadena RN - 03/14/2025 11:05 AM EDT Images from the original note [...] All Patient Name: Tristin Powell MR #: [id number] Subjective: office nurse received call from daughter who expressed concern about patient losing hisfoot- he is in dire pain and his toes on his right foot are turning purple. Dr. Sarabia requested USDuplex Arterial RLE and ABIs, and here for office visit today [id number] History of Present illness Narrative* Ken Johnson, KAMARI - 03/14/2025 10:00 AM EDT Patient Name: Tristin Powell MR #: [id number] Subjective: office nurse received call from daughter who expressed concern about patient losing hisfoot- he is in dire pain and his toes on his right foot are turning purple. Dr. Sarabia requested USDuplex Arterial RLE and ABIs, and here for office visit today Patient with excruciating pain in the right foot/worse in the right great toe. He has taken 2 percocet this am with little relief. Reports that this has been bad for the past 3 weeks. He was seeingDr. Beaver and had a right angiogram attempted at the [facility] on Monday03/12/2025 but was told they could [...] admission due to unrelenting pain that is unrelievedwith opiods. Patient is agreeable to admission and further evaluation Will plan for admit to medicine with Vascular team on consult; She will be unavailable next week and patient is aware of this Will attempt to get angiogram from [facility] from 03/12/2025; may need to repeat angiogram [...] 2 (two) timesa day 1/2 tab . fluticasone (FLONASE) 50 [...] by mouth 2 (two) times a day. urea (CARMOL) 40 % Crea zolpidem (AMBIEN) [...] Ken Johnson CNP 03/14/2025 documented in this [id number] NotePatient Name: Tristin Powell MR #: [id number] Subjective: office nurse received call from daughter [...] had a right angiogram attempted at the [facility] on Monday03/12/2025 but was told they could [...] this Will attempt to get angiogram from [facility] from 03/12/2025; may need to repeat angiogram [...] 03/14/2025 AUTHENTICATED BY KEN JOHNSON, ON 03/14/2025 11:47:35[facility]07-17-2025 History of Present illness Narrative* Ludivina Garcia RN - 03/13/2025 3:45 PM EDT Received vm from daughter who expressed concern [...] a 7:45 AM arrival time in the [place] [place] on the garden level. His ABIs will follow at 9 AM. Then his office visit with Ken Johnson CNP will be at 10 AM on the 5th floor of the [facility], [address]. Instructions provided for how to get to testing and office visit. Daughter verbalized understanding and expressed appreciation. All questions answered. documented in this [id number] Evaluation note* Diagnosis Onset Date Resolution Status Admit Date Peripheral vascular disease acuteJuly 2024 11:20am [facility] Work Phone: 1(998) 148-982907-15-2025 Evaluation note* Diagnosis Onset Date Resolution Status Admit Date Peripheral vascular disease acuteJuly 2024 11:20amChest painacuteSeptember 2024 4:42pmDyspnea acuteSeptember 2024 4:42pm [facility] Work Phone: 1(269) 636-250007-15-2025 Evaluation note* Diagnosis Onset Date Resolution Status Admit Date Peripheral vascular disease acuteJuly 2024 11:20amAcute respiratory failure with hypoxiaacuteSeptember 2024 11:19amChest painacuteSeptember 2024 11:19amCOPD exacerbation acuteSeptember 2024 11:19amDyspneaacuteSeptember 2024 11:19am HemoptysisacuteSeptember 2024 11:19amLung abscessacuteSeptember 2024 11:19amRhinovirus infectionacuteSeptember 2024 11:19am [facility] Work Phone: 1(215) 120-247006-19-2025 Telephone encounter Note* Telephone Encounter - Megansteph Douglass - 02/13/2025 3:28 PM EDT zolpidem (Ambien) 10 MG tablet Hydrocodone 5-352 [place] [facility] [id number] Miscellaneous Notes* Telephone Encounter - Megan Douglass - 02/13/2025 3:28 PM EDT zolpidem (Ambien) 10 MG tablet Hydrocodone 5-352 [place] documented in this encounterWright Memorial [id number] History of Present illness Narrative* Bhaskar Wilson [...] 2009 Avascular necrosis of bone of hip ([facility]) 09/04/2011 Right hip Right hip CAD (coronary artery disease) ([facility]) 2013 Carotid artery disease ([facility] Cataract 2014 Cellulitis 01/19/[address] [facility] Cellulitis LLE Colon polyps 2012 Critical lower limb ischemia ([facility]) 09/04/2018 Last Assessment & Plan: Pt s/p LLE angiogram with Dr Hahn who feels that the pt has no further endovascular options. He has consulted Dr. Sarabia for a possible tibial bypass. Pt s/p LLE critical limb ischemia Deann class 4 rest pain with distal discoloration to histoes Gangrene of left foot ([facility]) 10/04/2018 Groin hematoma 2013 RT Femoral groin Hematoma H/O myocardial perfusion scan 07/09/2019 LVEF 56% Myocardial perfusion imaging shows a defect in Apical wall Herpes zoster 09/04/2011 History of being hospitalized 12/06/2020 Strep Pneumonia, Resp. Failure - [facility] History of being hospitalized [place] [facility] 07/15/2021-07/16/2021 History of coronary angiogram [...] incomplete bowel prep Diverticulosis Dr. Rowe at [facility] COLONOSCOPY W/ POLYPECTOMY 2011 CORONARY [...] No follow-ups on file. documented in this encounterWright Memorial [id number] Telephone encounter Note* Telephone Encounter - Megan Douglass - 01/02/2025 10:43 AM EDT oxyCODONE-acetaminophen (Percocet) 5-325 MG tablet [ [employer] in [place] [facility] [id number] Miscellaneous Notes* Telephone Encounter - Megan Douglass - 01/02/2025 10:43 AM EDT oxyCODONE-acetaminophen (Percocet) 5-325 MG tablet [ [employer] in [place] documented in this encounterWright Memorial [id number] NoteUT Cardiology - [facility] Subjective Tristin Powell is a 84 [...] artery disease involving coronary bypass graft of [place] heart without angina pectoris Coronary artery disease involving [place] coronary artery of [place] heart without angina pectoris Coronary atherosclerosis Critical [...] pain Paresthesia of skin Paroxysmal atrial fibrillation ([facility]/HCC) Phantom limb pain ([facility]) Polymyalgia rheumatica Primary osteoarthritis of right hip Routine general medical examination at health care facility Seasonal allergic rhinitis Sinusitis Stage 3a chronic kidney disease ([facility]) Acute cystitis without hematuria Benign essential hypertension Other thrombophilia NSTEMI (non-ST elevated myocardial infarction) ([facility]) Hx of CABG Coronary artery disease Acquired absence of left leg below knee ([facility]) Other complications of amputation stump ([facility]) Pulmonary hypertension, unspecified ([facility]) Secondary hypercoagulable state Bronchiectasis, uncomplicated ([facility]/HCC) Chronic diastolic (congestive) heart failure ([facility]) Family History Problem Relation Name Age of [...] instent restenosis. [facility] (CHAVEZ to diagonal, SVG to [...] a yellow jacket and he went to [facility] for evaluation. He had mildly elevated [...] he feels good. Cuca (more content not included)...[facility] 11-26-2024 Telephone encounter Note* Telephone Encounter - LEONARDA Villavicencio - 11/26/2024 1:04 PM EDT OARRS reviewed, Rx sent into patient's pharmacy. Albuterol also sent. [facility] [id number] Miscellaneous Notes* Telephone Encounter - LEONARDA Villavicencio - 11/26/2024 1:04 PM EDT OARRS reviewed, Rx sent into patient's pharmacy. Albuterol also sent. * Telephone Encounter - Megan Douglass - 11/26/2024 10:31 AM EDT oxyCODONE-acetaminophen (Percocet) 5-325 MG tablet [employer] in frostproof documented in this encounterWright Memorial HospitalTppppmqaxg43-35-1347 Telephone encounter Note* Telephone Encounter - Megan Douglass - 11/26/2024 10:31 AM EDT oxyCODONE-acetaminophen (Percocet) 5-325 MG tablet [employer] in frostproof [facility] [id number] History of Present illness Narrative* Elaine Saab [...] States this prescription needs to go to [facility] in [place], [place]. States all other prescriptions go to [facility] pharmacy. Medications reconciled with pt. Pt also needs refill on albuterol HFA 90 mcg/act inhaler. This is to be sent to [facility]. * LEONARDA Villavicencio - 11/25/2024 9:54 AM EDT Will send meds in for pt. documented in this encounterWright Memorial [id number] Telephone encounter Note* Telephone Encounter - Megan Douglass - 10/21/2024 9:32 AM EST Pt scheduled [facility] [id number] Miscellaneous Notes* Telephone Encounter - Megan Douglass - 10/21/2024 9:32 AM EST Pt scheduled * Telephone Encounter - LEONARDA Villavicencio - 10/18/2024 12:38 PM EST Please help pt get set up with Dr. Lovelace for medication follow up appointment in October. OARRS reviewed, Rx sent into patient's pharmacy. documented in this encounterWright Memorial [id number] Telephone encounter Note* Telephone Encounter - LEONARDA Villavicencio - 10/18/2024 12:38 PM EST Please help pt get set up with Dr. Lovelace for medication follow up appointment in October. OARRS reviewed, Rx sent into patient's pharmacy. [facility] [id number] History of Present illness Narrative* Ludivina Garcia RN - 09/23/2024 1:09 PM EST Spoke with Nurse from Dr. Beaver's office with [facility] and requested reports for ABIs and US Duplex Bypass Graft LLE be faxed to [phone]. Staff verbalized understanding. All questions answered. documented in this [id number] Telephone encounter Note* Telephone Encounter - LEONARDA Villavicencio - 09/13/2024 12:11 PM EST OARRS reviewed, Rx sent into patient's pharmacy. [facility] [id number] Miscellaneous Notes* Telephone Encounter - LEONARDA Villavicencio - 09/13/2024 12:11 PM EST OARRS reviewed, Rx sent into patient's pharmacy. * Telephone Encounter - Cindi Oscar - 09/12/2024 1:32 PM EST oxyCODONE-acetaminophen (Percocet) 5-325 MG tablet to sebastien dougherty documented in this encounterWright Memorial [id number] Telephone encounter Note* Telephone Encounter - Cinditoby Oscar - 09/12/2024 1:32 PM EST oxyCODONE-acetaminophen (Percocet) 5-325 MG tablet to sebastien dougherty [facility] HospitalKvckirojli73-76-0848 History of Present illness Narrative* Ludivina Garcia RN - 08/20/2024 12:50 PM EST Lvm for staff at [facility] with Dr. Beaver's office to clarify if patient already completed his ABIs and US Duplex Bypass Graft LLE. Left direct number for call back. documented in this [id number] History of Present illness Narrative* Flash Lovelace [...] includes PVD. There is no history of CAD/OR orCVA. There is no history of a [...] hip Right hip CAD (coronary artery disease) ([facility]) 2013 Carotid artery disease ([facility]) Cataract 2014 Cellulitis 01/19/[address] [facility] Cellulitis LLE Colon polyps 2012 Critical lower limb ischemia ([facility]) 09/04/2018 Last Assessment & Plan: Pt s/p LLE angiogram with Dr Hahn who feels that the pt has no further endovascular options. He has consulted Dr. Sarabia for a possible tibial bypass. Pt s/p LLE critical limb ischemia [place] class 4 rest pain with distal discoloration to histoes Gangrene of left foot ([facility]) 10/04/2018 Groin hematoma 2013 RT Femoral groin Hematoma H/O myocardial perfusion scan 07/09/2019 LVEF 56% Myocardial perfusion imaging shows a defect in Apical wall Herpes zoster 09/04/2011 History of being hospitalized 12/06/2020 Strep Pneumonia, Resp. Failure - [facility] History of being hospitalized [place] [facility] 07/15/2021-07/16/2021 History of coronary angiogram [...] incomplete bowel prep Diverticulosis Dr. Rowe at [facility] COLONOSCOPY W/ POLYPECTOMY 2011 CORONARY [...] Relevant Orders Influenza, high-dose seasonal, quadrivalent, PF (YVW747) (Fluzone High Dose [place] 0.7mL dose) (Completed) No follow-ups on file. documented in this encounterWright Memorial HospitalXwgpwhfuka61-04-2054 Telephone encounter Note* Telephone Encounter - Megan Douglass - 08/06/2024 2:54 PM EST oxyCODONE-acetaminophen (Percocet) 5-325 MG tablet zolpidem (Ambien) 10 MG tablet [employer] [place] [facility] [id number] Miscellaneous Notes* Telephone Encounter - Megan Douglass - 08/06/2024 2:54 PM EST oxyCODONE-acetaminophen (Percocet) 5-325 MG tablet zolpidem (Ambien) 10 MG tablet [employer] [place] documented in this encounterWright Memorial [id number] NoteUT Cardiology - [facility] Subjective Tristin Powell is a 84 [...] artery disease involving coronary bypass graft of [place] heart without angina pectoris Coronary artery disease involving [place] coronary artery of [place] heart without angina pectoris Coronary atherosclerosis Critical [...] instent restenosis. [facility] (CHAVEZ to diagonal, SVG to [...] a yellow jacket and he went to [facility] for evaluation. He had mildly elevated [...] joint pain, myalgias and (more content not included)...[facility]11-13-2024 Note Patient: Tristin Powell Procedure Information Date/Time: 07/10/24929 Procedure: Coronary angiography - PC APPROVED Location: 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 / [facility] (Cath) Providers: Eliezer Juarez MD Clinical information reviewed: Allergies Meds Physical Exam Airway Mallampati: III TM distance: >3 FB Neck ROM: full Cardiovascular Rhythm: regular Rate: normal Dental Pulmonary Abdominal Anesthesia Plan ASA 3 (Conscious sedation) Anesthetic plan and risks discussed with patient. Use of blood products discussed with patient who. Plan discussed with attending. Additional Equipment RequestsSelect [facility] Telephone encounter Note* Telephone Encounter - LEONARDA Villavicencio - 07/05/2024 9:35 AM EST OARRS reviewed, Rx sent into patient's pharmacy. [facility] [id number] Miscellaneous Notes* Telephone Encounter - LEONARDA Villavicencio - 07/05/2024 9:35 AM EST OARRS reviewed, Rx sent into patient's pharmacy. * Telephone Encounter - Cindi Oscar - 07/05/2024 9:18 AM EST oxyCODONE-acetaminophen (Percocet) 5-325 MG tablet to [place] [employer] documented in this encounterWright Memorial [id number] Telephone encounter Note* Telephone Encounter - Cindi Oscar - 07/05/2024 9:18 AM EST oxyCODONE-acetaminophen (Percocet) 5-325 MG tablet to [place] [employer] [facility] HospitalFmllcnlimk28-43-2674 Telephone encounter Note* Telephone Encounter - Megan Douglass - 06/17/2024 10:04 AM EDT Patient called requesting a zpack due to a cold. He asked something to be sent into [employer] in frost[place]. [facility] HospitalLfotqffyby76-26-0957 Miscellaneous Notes* Telephone Encounter - Megan Douglass - 06/17/2024 10:04 AM EDT Patient called requesting a zpack due to a cold. He asked something to be sent into [employer] in frostproof. documented in this encounterWright Memorial HospitalNcqqbqacqu07-25-8492 NoteUT Cardiology [facility] Subjective Tristin Powell is a 84 y.o. year old male patient being seen for 6 mo follow up CAD, PAD, AAA, HTN, and HLD. Had lipid panel Sep, 2023. He is now seeing vascular surgery in [place], Dr. Beaver. Patient Active Problem List Diagnosis Abdominal pain Chest pain Aortic valve regurgitation Mitral valve regurgitation Avascular necrosis of bone of hip (CMS/HCC) Community acquired pneumonia of left lower lobe of lung Contusion Hematoma of arm, left, initial encounter Coronary artery disease involving coronary bypass graft of [place] heart without angina pectoris Coronary artery disease involving [place] coronary artery of [place] heart without angina pectoris Coronary atherosclerosis Critical [...] instent restenosis. [facility] (CHAVEZ to diagonal, SVG to [...] stress ECHO that could be done at [facility]. He has not had this done yet as he notes his vascular surgery is on hold at the moment and they are monitoring things. 05/28/2024 Since last seen, pt presented to [facility] with c/o chest pain. He was stung by a yellow jacket. 4 hours later he developed sharp stabbing chest pains that lasted seconds. This happened again 2 hours later. He went to [facility] for further evaluation. He has had no further episodes of chest pain. Review of Systems Cardiovascular (more content not included)...[facility] 05-28-2024 NotePt is here for a follow up after being in [facility]. Pt has HLD, HNT, and CAD. Pt denies chest pain, sob, dizziness. Review of Systems Cardiovascular: Positive for claudication and leg swelling. Respiratory: Positive for wheezing. Hematologic/Lymphatic: Bruises/bleeds easily. Musculoskeletal: Positive for arthritis, back pain, joint pain, myalgias and neck pain. All other systems reviewed and are negative.[facility] 05-21-2024 History of Present illness Narrative* LEONARDA Villavicencio - 05/21/2024 1:00 PM EDT HPI Med Refill Additional comments: Oxycodone Last edited by Wendy Tubbs LPN on 05/21/2024 1:07 PM. Subjective Patient ID: Tristin Powell is a 84 y.o. male who presents for hospital follow up. Flowsheet Row Patient Outreach from 05/16/2024 in [employer] with Mary Rodriguez LPN Hospital Information Discharged To: Home Setting Discharge [facility] Diagnosis Chest pain, HTN, CAD, paroximal A-Fib [...] went to a lung specialist down in [place] and after the repeat test was told [...] morning. [DISCONTINUED] ergocalciferol (Vitamin D-2) 1.25 MG (95485 UT) capsule Take 50,000 Units by mouth [...] 2009 Avascular necrosis of bone of hip ([facility]) 09/04/2011 Right hip Right hip CAD (coronary artery disease) ([facility]) 2014 Carotid artery disease ([facility]) Cataract 2014 Cellulitis 01/19/[address] [facility] Cellulitis LLE Colon polyps 2011 Critical lower limb ischemia ([facility]) 09/04/2018 Last Assessment & Plan: Pt s/p LLE angiogram with Dr Hahn who feels that the pt has no further endovascular options. He has consulted Dr. Sarabia for a possible tibial bypass. Pt s/p LLE critical limb ischemia [place] class 4 rest pain with distal discoloration to histoes Gangrene of left foot ([facility]) 10/04/2018 Groin hematoma 2013 RT Femoral groin Hematoma H/O myocardial perfusion scan 07/09/2019 LVEF 56% Myocardial perfusion imaging shows a defect in Apical wall Herpes zoster 09/04/2011 History of being hospitalized 12/06/2020 Strep Pneumonia, Resp. Failure - [facility] History of being hospitalized [place] [facility] 07/15/2021-07/16/2021 History of coronary angiogram [...] incomplete bowel prep Diverticulosis Dr. Rowe at [facility] COLONOSCOPY W/ POLYPECTOMY 2011 CORONARY [...] patient. 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[facility]) The patient is seeing a vp medical for this condition, treatment is deferred to [...] for Appointment As Scheduled. documented in this encounterWright Memorial [id number] History of Present illness Narrative* LEONARDA Villavicencio [...] % ointment ergocalciferol (Vitamin D-2) 1.25 MG (86467 UT) capsule Take 50,000 Units by mouth [...] fracture, left 2009 CAD (coronary artery disease) ([facility]) 2013 Carotid artery disease ([facility]) Cataract 2014 Cellulitis 01/19/[address] [facility] Cellulitis LLE Colon polyps 2011 Groin hematoma 2013 RT Femoral groin Hematoma H/O myocardial perfusion scan 07/09/2019 LVEF 56% Myocardial perfusion imaging shows a defect in Apical wall History of being hospitalized 12/06/2020 Strep Pneumonia, Resp. Failure - [facility] History of being hospitalized [place] [facility] 07/15/2021-07/16/2021 History of coronary angiogram [...] incomplete bowel prep Diverticulosis Dr. Rowe at [facility] COLONOSCOPY W/ POLYPECTOMY 2011 CORONARY [...] Do you have a medical power of process improvement specialist?: Yes Objective : BP 132/82 Pulse 70 [...] on exertion The patient is seeing a vp medical for this condition, treatment is deferred to that specialist. Correspondence from that specialist and any available testing were reviewed during today's visit. 12. Orthopnea The patient is seeing a vp medical for this condition, treatment is deferred to [...] aortic aneurysm (AAA) without rupture, unspecified part ([facility]/HCC) The patient is seeing a vp medical for this condition, treatment is deferred to that specialist. Correspondence from that specialist and any available testing were reviewed during today's visit. 16. Aortic valve insufficiency, etiology of cardiac valve disease unspecified The patient is seeing a vp medical for this condition, treatment is deferred to that specialist. Correspondence from that specialist and any available testing were reviewed during today's visit. 17. Atherosclerosis of [place] coronary artery of [place] heart without angina pectoris ([facility]/HCC) The patient is seeing a vp medical for this condition, treatment is deferred to that specialist. Correspondence from that specialist and any available testing were reviewed during today's visit. 18. Benign essential hypertension ([facility]/HCC) Patient's blood pressure is currently well controlled. Continue with current medications and I willcontinue to monitor. 19. Stenosis of right carotid artery The patient is seeing a vp medical for this condition, treatment is deferred to that specialist. Correspondence from that specialist and any available testing were reviewed during today's visit. 20. Chronic heart failure with preserved ejection fraction (CMS/HCC) The patient is seeing a vp medical for this condition, treatment is deferred to that specialist. Correspondence from that specialist and any available testing were reviewed during today's visit. 21. Chronic ischemic heart disease (CMS/HCC) The patient is seeing a vp medical for this condition, treatment is deferred to that specialist. Correspondence from that specialist and any available testing were reviewed during today's visit. 22. Mitral valve insufficiency, unspecified etiology The patient is seeing a vp medical for this condition, treatment is deferred to that specialist. Correspondence from that specialist and any available testing were reviewed during today's visit. 23. Paroxysmal atrial fibrillation ([facility]) The patient is seeing a vp medical for this condition, treatment is deferred to that specialist. Correspondence from that specialist and any available testing were reviewed during today's visit. 24. Preinfarction syndrome (CMS/HCC) The patient is seeing a vp medical for this condition, treatment is deferred to that specialist. Correspondence from that specialist and any available testing were reviewed during today's visit. 25. PVD (peripheral vascular disease) with claudication ([facility]) The patient is seeing a vp medical for this condition, treatment is deferred to that specialist. Correspondence from that specialist and any available testing were reviewed during today's visit. 26. Thoracic aortic aneurysm without rupture, unspecified part ([facility]) The patient is seeing a vp medical for this condition, treatment is deferred to [...] 29. Chronic kidney disease due to hypertension ([facility]/HCC) This is a chronic medical condition that is stable since last assessment. No changes in treatment are suggested at this time. 30. Impotence of organic origin This is a chronic medical condition that is stable since last assessment. No changes in treatment are suggested at this time. 31. Malignant neoplasm of prostate (CMS/HCC) The patient is seeing a vp medical for this condition, treatment is deferred to [...] time. 35. Claudication of right lower extremity ([facility]/HCC) The patient is seeing a vp medical for this condition, treatment is deferred to [...] suggested at this time. 41. Other thrombophilia ([facility]/HCC) This is a chronic medical condition that is stable since last assessment. No changes in treatment are suggested at this time. 42. Abnormal radiographic examination The patient is seeing a vp medical for this condition, treatment is deferred to that specialist. Correspondence from that specialist and any available testing were reviewed during today's visit. 43. Disorder of lipid metabolism (CMS/HCC) The patient is seeing a vp medical for this condition, treatment is deferred to that specialist. Correspondence from that specialist and any available testing were reviewed during today's visit. 44. Left sciatic nerve pain This is a chronic medical condition that is stable since last assessment. No changes in treatment are suggested at this time. 45. Mixed hyperlipidemia (CMS/HCC) The patient is seeing a vp medical for this condition, treatment is deferred to [...] 100 g; Refill: 3 48. Atherosclerosis of [place] arteries of extremities with rest pain, unspecified extremity (CMS/HCC) The patient is seeing a vp medical for this condition, treatment is deferred to that specialist. Correspondence from that specialist and any available testing were reviewed during today's visit. 49. Pulmonary hypertension, unspecified (CMS/HCC) The patient is seeing a vp medical for this condition, treatment is deferred to that specialist. Correspondence from that specialist and any available testing were reviewed during today's visit. Follow up in about 3 months (around 07/27/2024) for Medication Follow Up. Electronically signed by LEONARDA Villavicencio on April 26, 2024 documented in this encounterWright Memorial [id number] NotePt is here for a six month follow up. Pt has hyperlipidemia, hypertension, PAD. Pt denies sob, chest pain, palpitations Review of Systems Cardiovascular: Positive for claudication. Respiratory: Positive for wheezing. Hematologic/Lymphatic: Bruises/bleeds easily. Musculoskeletal: Positive for arthritis, back pain, joint pain, myalgias and neck pain. All other systems reviewed and are negative.[facility] 04-24-2024 NoteUT Cardiology - [facility] Reginaldo Powell is a 84 y.o. year old male patient being seen for 6 mo follow up CAD, PAD, AAA, HTN, and HLD. Had lipid panel Feb, 2024. He is now seeing vascular surgery in [place], Dr. Beaver. Patient Active Problem List Diagnosis Abdominal pain Chest pain Aortic valve regurgitation Mitral valve regurgitation Avascular necrosis of bone of hip (CMS/HCC) Community acquired pneumonia of left lower lobe of lung Contusion Hematoma of arm, left, initial encounter Coronary artery disease involving coronary bypass graft of [place] heart without angina pectoris Coronary artery disease involving [place] coronary artery of [place] heart without angina pectoris Coronary atherosclerosis Critical [...] instent restenosis. [facility] (CHAVEZ to diagonal, SVG to [...] stress ECHO that could be done at [facility]. He has not had this done [...] (BP Location: Right arm (more content not included)...[facility]04-30-2024 Hospital Discharge instructions Patient Education 12/26/2023 13:31:34 [...] greater thelikelihood that the cancer will spread. [place] 6 or lower: This indicates that the cancer cells look similar to normal prostate cells (well differentiated). [place] 7: This indicates that the cancer cells look somewhat similar to normal prostate cells (moderately differentiated). [place] 8, 9, or 10: This indicates that [...] stress of having cancer. General instructions Take cddl-now-lsqeivc and prescription medicines only as told by your health care provider. If you have to go to the hospital, notify your cancer specialist (oncologist). Keep all follow-up visits. This is important. Where to find more information [place] [employer]: www.cancer.org [place] [employer] On[employer]: www.cancer.net National Cancer [place]: www.cancer.gov Contact a health care provider if: [...] provider. Document Revised: 11/10/2021 Document Reviewed: 11/10/2021 [employer] Patient Education 2022 ChangeTip. Follow Up Care 12/20/2022 14:56:06 With:JAY CARRANZA, BRENNA Bazan, URL Address: [facility] [address] [facility] [place] [place] [address] Business (1) When: only if needed [facility]24 Evaluation note* Encounter Date Diagnosis Assessment Notes Treatment Notes Treatment Clinical Notes Sep, Peripheral vascular occlusive di sease (ICD-10 - I73.9) Sep,OtherPeripheral arterial occlusive disease with ischemic rest pain right foot We will repeat his diagnostic arteriogram to assess his current anatomy. Previously he did not havegood targets for endovascular intervention. Vein mapping will be obtained to look for potential conduit for reconstruction. He understands and is agreement with that plan Eons Other 12-14-2023 History of Present illness Narrative* Dahiana Coelho - 08/10/2023 11:40 AM EST Ortho Nurse - Established Patient Intake Room#: 4 Date: 08/10/2023 10:53 AM Patient: Tristin Powell . MR#: [id number] : 1940 Age: 83 y.o. 2yr R [...] Laterality: Right; Surgeon: Dashawn Silvestre MD; Location: [facility] OR PERIPHERAL ANGIOPLASTY N/A 08/09/2018 Laterality: [...] 10:53 AM Patient: Tristin Powell . MR#: [id number] : 1940 Age: 83 y.o. 2yr R [...] No Known Allergies. documented in this [facility]12-13-2023 History of Present illness Narrative* Mohsen [...] year with repeat testing. documented in this [id number] History of Present illness Narrative* Katie Anna [...] Duplex and had previous study done at [facility] in Apr [address] Maxim Beaver. This Nurse will obtain records and submit to Dr. Sarabia for review. documented in this [id number] Evaluation note* Encounter Date Diagnosis Assessment Notes Treatment Notes Treatment Clinical Notes May, Bilateral carotid ar petra stenosis without cerebral infarction (ICD- 10 - I65.23) May,OtherCarotid bruit He has moderate carotid occlusive disease. [...] with speech that he should seek attention. Eons Other 09-26-2023 Evaluation note* Encounter Date Diagnosis Assessment Notes Treatment Notes Treatment Clinical Notes Apr, Peripheral vascular disease, uns pecified (ICD-10 - I73.9) Apr,Other specified postprocedural states (ICD-10 - Z98.890) Apr,Left carotid bruit (ICD-10 - R09.89) Apr,OtherPeripheral vascular occlusive disease I will continue to follow [...] to go over the results with him. Eons Other 09-26-2023 Evaluation note* Encounter Date Diagnosis Assessment Notes Treatment Notes Treatment Clinical Notes Apr, Peripheral vascular disease, uns pecified (ICD-10 - I73.9) Apr,Other specified postprocedural states (ICD-10 - Z98.890) Apr,Left carotid bruit (ICD-10 - R09.89) Eons Other 04-25-2023 Hospital Discharge instructions Patient Education [...] Follow these instructions at home: Medicines Take dgxv-vui-enoyvck and prescription medicines only as told by [...] provider. Document Revised: 11/10/2021 Document Reviewed: 11/10/2021 [employer] Patient Education 2022 ChangeTip. Follow Up Care 11/21/2022 15:38:53 With:JAY CARRANZA, BRENNA Bazan, URL Address: When:1 year [facility] 03-20-2023 Evaluation note* Encounter Date Diagnosis Assessment Notes Treatment Notes Treatment Clinical Notes Oct, PAD (peripheral artery disease) (ICD-10 - I73.9) Patient remains stable of his peripheral vascular occlusive disease and on good medical therapy with use of aspirin and statin medications daily. He currently has tissue loss and he has no rest pain.We do not have any studies today. A [...] meantime with any worsening symptoms or concerns. Eons Other 03-14-2023 History of Present illness Narrative* Camila Bland, CSM CONSULTANT - 11/08/2022 12:08 PM EDT Physical Therapy [...] to Sit: Supervision, Head of bed elevated Oxyacetylene Welder: bed positioning mechanics, bedrails Skilled Intervention Provided: verbal cues, patient education, monitoring patient response with activity For: logroll technique, proper body mechanics, self-monitoring during activity Resulting in: improved functional independence Transfers Sit to Stand: Stand by assist Stand Pivot Transfers: Stand by assist Oxyacetylene Welder: BUE Skilled Intervention Provided: verbal cues, neuromuscular [...] recently Prior Level of Function Level of [place] - Transfers/Ambulation/Mobility: Independent with household ambulation, Independent with community ambulation Level of [place] - ADLs: Independent Level of [place] - Homemaking: Independent Driving: Patient drives For [...] Dawn MD - 11/08/2022 6:57 AM EDT [facility]™ Medical Inpatient Progress Note 11/08/2022 Tristin Powell 1940 [id number] Assessment/Plan: Tristin Powell is an 82 year old male with a history of Prostate Cancer, CAD, PAD (left foot amputation 2018), Hypertension, HFpEF who presented to [facility] 11/03/2022 with persistent pneumonia despite [...] to rubbing effect. Recommended to go to [facility] for adjustment to prevent valgus deformity [...] labs, diagnostics, vitals including pulse ox, and care consultant/other provider recommendations. VSS. Troponin with negative [...] Oral Daily ipratropium-albuteroL 3 mL Inhalation Q6H [facility] metoprolol tartrate 50 mg Oral BID pantoprazole 40 mg Oral BID polyethylene glycol 17 g Oral Daily rivaroxaban 2.5 mg Oral BID sodium chloride 1 spray Each Nare BID sodium chloride (PF) 5 mL Intravenous Q8H [facility] Labs, Imaging and Studies reviewed: Results [...] Standing Balance - Static: Stand by assist Oxyacetylene Welder - Standing Static: (none) Standing Balance - Dynamic: Stand by assist, Contact guard assist Oxyacetylene Welder - Standing Dynamic: (none) Skilled Intervention Provided: verbal cues, patient education For: self-monitoring during activity, safe use of AD and/or equipment Resulting in: improved functional independence Bed Mobility Supine to Sit: (N/A Pt sitting edge of bed upon arrival) Sit to Supine: (N/A Pt sitting edge of bed at end of session) Transfers Sit to Stand: Stand by assist Oxyacetylene Welder: (none) Skilled Intervention Provided: verbal cues For: [...] recently Prior Level of Function Level of [place] - Transfers/Ambulation/Mobility: Independent with household ambulation, Independent with community ambulation Level of [place] - ADLs: Independent Level of [place] - Homemaking: Independent Driving: Patient drives For [...] Barboza MD - 11/07/2022 7:39 AM EDT [facility] Inpatient Progress Note 11/07/2022 Tristin Powell 1940 [id number] Assessment/Plan: Tristin Powell is an 82 year old male with a history of Prostate Cancer, CAD, PAD (left foot amputation 2018), Hypertension, HFpEF who presented to [facility] 11/03/2022 with persistent pneumonia despite [...] to rubbing effect. Recommended to go to [facility] for adjustment to prevent valgus deformity [...] 6' 1 Wt 113.4 kg (250 lb) XmH817% BMI 32.98 kg/m General: NAD Eyes: EOMI [...] Barboza MD - 11/06/2022 10:11 AM EDT [facility] Inpatient Progress Note 11/06/2022 Tristin Powell 1940 [id number] Assessment/Plan: Tristin Powell is an 82 year old male with a history of Prostate Cancer, CAD, PAD (left foot amputation 2018), Hypertension, HFpEF who presented to [facility] 11/03/2022 with persistent pneumonia despite [...] Standing Balance - Static: Contact guard assist Oxyacetylene Welder - Standing Static: other (comment) (none) Standing Balance - Dynamic: Contact guard assist Oxyacetylene Welder - Standing Dynamic: (none) Loss of Balance- [...] assist Stand Pivot Transfers: Contact guard assist Oxyacetylene Welder: other (comment) (none) Skilled Intervention Provided: verbal [...] recently Prior Level of Function Level of [place] - Transfers/Ambulation/Mobility: Independent with household ambulation, Independent with community ambulation Level of [place] - ADLs: Independent Level of [place] - Homemaking: Independent Driving: Patient drives For [...] Barboza MD - 11/05/2022 9:53 AM EST [facility] 11/05/2022 Tristin Powell 1940 [id number] Assessment/Plan: Tristin Powell is an 82 year old male with a history of Prostate Cancer, CAD, PAD (left foot amputation 2018), Hypertension, HFpEF who presented to [facility] 11/03/2022 with persistent pneumonia despite [...] left foot area. Nasal irritation. ConsultedPodiatry. Prescribed [place] Saline nasal spray. Reviewed chart. Physical Exam: [...] None Wound Bed Characteristics Scab [place]na-wound Assessment Painful;[place] Treatments Skin barrier cream/paste Cleansed Soap and [...] recently Prior Level of Function Level of [place] - Transfers/Ambulation/Mobility: Independent with household ambulation, Independent with community ambulation Level of [place] - ADLs: Independent Level of [place] - Homemaking: Independent Driving: Patient drives Past Medical History: Diagnosis Date Arthritis Avascular necrosis of bone of hip (HCC) Claudication (HCC) Coronary artery disease Herpes zoster Hyperlipidemia Hypertension PAD (peripheral artery disease) (HCC) 01/21/2022 Prostate cancer (HCC) Vascular disease Past Surgical History: Procedure Laterality Date 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/08/2018 Procedure: LEFT MIDFOOT AMPUTATION; Surgeon: Flynn Mann DPM; Location: [facility] OR; Service: Podiatry ANKLE SURGERY Left BYPASS PERONEAL FEMORAL Right 09/07/2018 Procedure: BYPASS PERONEAL FEMORAL, RIGHT SAPHENOUS VEIN HARVEST, COMPLETION ANGIOGRAM; Surgeon: Mohsen Sarabia MD; Location: [facility] NEURO OR; Service: Cardiovascular CARDIAC CATHETERIZATION Left 09/05/2018 Procedure: Angio Lower Extremity; Surgeon: Ben Hahn MD; Location: [facility] 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; Service: Cardiovascular CARDIAC SURGERY 2017 triple bypass EGD N/A 10/10/2018 Procedure: ESOPHAGOGASTRODUODENOSCOPY; Surgeon: Ben Jensen MD; Location: [facility]; Service: Gastroenterology EYE SURGERY Right 2015 [...] Barboza MD - 11/04/2022 10:58 AM EST [facility]™ Medical Inpatient Progress Note 11/04/2022 Tristin Powell 1940 [id number] Assessment/Plan: Tristin Powell is an 82 year old male with a history of Prostate Cancer, CAD, PAD (left foot amputation 2018), Hypertension, HFpEF who presented to [facility] 11/03/2022 with persistent pneumonia despite [...] PHOSPHORUS mg/dL 3.9* -- * El Owen [facility],PharmD - 11/03/2022 10:20 PM EST PHARMACOTHERAPY NOTE: [...] 1 Encounters: 11/03/22 113.4 kg (250 lb) [place] body weight: 79.9 kg (176 lb 2.4 [...] Component Value Units Date/Time Sputum Aerobic Culture [[id number]] Order Status: Sent Specimen: Sputum, Expectorated S. pneumoniae Urine Antigen [[id number]] Order Status: Sent Specimen: Urine, Random Legionella Antigen, Urine [[id number]] Order Status: Sent Specimen: Urine, Random MRSA DNA Amplified Probe [[id number]] Order Status: Sent Specimen: Swab from Nasal Blood Culture Aerobic/Anaerobic [[id number]] (Normal) Collected: 11/03/221352 Order Status: Completed Specimen: Blood, Peripheral Updated: 11/03/22 1559 Culture In Progress; No Growth to Date Blood Culture Aerobic/Anaerobic [[id number]] (Normal) Collected: 11/03/221351 Order Status: Completed Specimen: Blood, Peripheral Updated: 11/03/22 1559 Culture In Progress; No Growth to Date Pharmacist: El Owen RPh,PharmD Contact Number: documented in this [id number] Hospital Discharge instructions * Discharge Instructions* Vickey [...] Care Everywhere. * Heart Failure: Avoiding Triggers (Vietnamese) * Heart Failure: Limiting Sodium (Vietnamese) * Heart Failure: Restricting Fluids: General Info (Vietnamese) * Low Sodium Diet (Vietnamese) documented in this [id number] Hospital course Narrative* Vickey Dawn MD - 11/08/2022 11:18 AM EDT Images from the original note were not included. [facility] DISCHARGE SUMMARY Tristin Powell Account: [id number] Admitted: 11/03/2022 Discharge Date/Time: 11/08/22 11:30 AM [...] 2018), Hypertension, HFpEF who presented to [facility] 11/03/2022 with persistent pneumonia despite [...] to rubbing effect. Recommended to go to [facility] for adjustment to prevent valgus deformity [...] Trelegy Ellipta 100-62.5-25 mcg Dsdv Generic drug: mlylwjmcgup-atjknvgzw-guhtbsfs zolpidem 10 mg tablet Commonly known as: [...] Your Medications These medications were sent to [facility] [id number] [facility] [address] [facility] [address] [id number] furosemide 20 MG tablet levoFLOXacin 750 MG tablet Physician(s) Family: Flash Lovelace MD, , Address: [address] [place], [place] [address] Follow Up: Dashawn Orosco DPM [address] [phone] Schedule an appointment as soon as possible for a visit in 1 week(s) [facility] [address] [facility] [address] [place] [address] Follow up Thank you for allowing us to participate in your care. Schedule an appt with your established application integration specialist in [place]. Call us with any questions. Angela Guerra MD [address] [place] [address] [address] [phone] Call in 4 week(s) Call in 4-[address] weeks after follow up CT chest Additional Information: Patient seen and examined day of discharge. For more information regarding patient's care, including complete radiology reports, please contact [facility] at Patient instructions, including activity, were given to the patient/family at discharge. Please seethe After Visit Summary in the medical record for details. Time spent on discharge: > 30 minutes Completed by: Vickey Dawn on 11/08/22, 11:30 AM documented in this [id number] Consult note* Monica Vázquez RN - 11/07/2022 [...] of early recognition and report to their application integration specialist,PCP or health care provider. Daily weight monitoring [...] fluid and lifestyle changes. MATERIALS, RESOURCES GIVEN: [place] [facility] Guide to Living with Heart Failure book, 5 day low sodium+ Diabetic sample menu. Clinical references attached to AVS. [id number] Consult note* Monica Vázquez RN - 11/07/2022 [...] of early recognition and report to their application integration specialist,PCP or health care provider. Daily weight monitoring [...] fluid and lifestyle changes. MATERIALS, RESOURCES GIVEN: [place] [facility] Guide to Living with Heart Failure book, 5 day low sodium+ Diabetic sample menu. Clinical references attached to AVS. * Kory Mei CNP - 11/07/2022 10:11 AM EDTAssociated Order(s): IP CONSULT TO CARDIOLOGY General Cardiology Inpatient Consult Heart & Vascular [facility] 11/07/2022 Kory Mei CNP [facility] Rounding RN [phone] Patient: Tristin Powell Date of : 1940 (82 y.o.) Referring Provider: Refer to consult order in electronic medical record PCP: Flash Lovelace MD Plastic Sewer: Follows with cardiology at [facility] Assessment/Plan: Atypical chest pain Elevated troponins Admit [...] consulted. -Follow up with PCP or personal application integration specialist in 1-2 weeks Coronary artery disease History of multiple stents and subsequent coronary artery bypass graft x 3 (CHAVEZ to Diag, SVG to OM1, SVG to PDA) at [facility] 10/2016 Left heart catheterization prior [...] as outpatient for pneumonia and seen at [facility] ED on 10/30 for fever, persistent frequent cough with associated chest pain, n/v, decrease appetite, weakness, and mild dyspnea. Per patient was told by PCP that there was also Fluid on his lungs . Normal BNP at [facility] ED. Discharged on ATB. Since admit he [...] bypass graft. Not following routinely with his application integration specialist. Imaging: I independently reviewed the EKG and agree with the interpretation(s) with the following comments. SR, isolated flat T wave lead III; ECG today with chest pain: Sr with occasional PVC, TWA lead III,aVF EKG 12-lead Final Result by Interface, Lab Results In [facility] (11/03/2022 1658) Echocardiogram complete w contrast Final [...] PAD (peripheral artery disease) ([facility]) 01/21/2022 Prostate cancer ([facility]) Vascular disease Past Surgical History: Procedure Laterality Date 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/08/2018 Procedure: LEFT MIDFOOT AMPUTATION; Surgeon: Flynn Mann DPM; Location: [facility] OR; Service: Podiatry ANKLE SURGERY Left BYPASS PERONEAL FEMORAL Right 09/07/2018 Procedure: BYPASS PERONEAL FEMORAL, RIGHT SAPHENOUS VEIN HARVEST, COMPLETION ANGIOGRAM; Surgeon: Mohsen Sarabia MD; Location: [facility] NEURO OR; Service: Cardiovascular CARDIAC CATHETERIZATION Left 09/05/2018 Procedure: Angio Lower Extremity; Surgeon: Ben Hahn MD; Location: [facility] 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; Service: Cardiovascular CARDIAC SURGERY 2017 triple bypass EGD N/A 10/10/2018 Procedure: ESOPHAGOGASTRODUODENOSCOPY; Surgeon: Ben Jensen MD; Location: [facility] [place]; Service: Gastroenterology EYE SURGERY Right 2015 [...] Intravenous Q12H Duke Claros MD Stopped at 11/06/229 [START ON 11/08/2022] furosemide (LASIX) tablet 20 [...] flush 5 mL 5 mL Intravenous Q8H [facility] Duke Claros MD 5 mL at 11/07/22 [...] cardiac issues or concerns. Jaziel Jeffries MD, [facility] Inpatient [place] [phone] Office [phone] * Aaron Fenton, DPM - 11/07/2022 7:07 AM EDTAssociated Order(s): IP CONSULT TO PODIATRY Critical Limb Care Consult Note Tristin Powell AGE: 82 y.o. GENDER: male : 1940 EPISODE DATE: 11/03/2022 Assessment/Plan: Tristin Powell is an 82 year old male with a history of Prostate Cancer, CAD, PAD (left foot amputation 2018), Hypertension, HFpEF who presented to [facility] 11/03/2022 with persistent pneumonia despite [...] ankle. He will need to go [facility] an adjustment to help prevent [...] PAD (peripheral artery disease) ([facility]) 01/21/2022 Prostate cancer ([facility]) Vascular disease PAST SURGICAL HISTORY Past Surgical History: Procedure Laterality Date 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/08/2018 Procedure: LEFT MIDFOOT AMPUTATION; Surgeon: Flynn Mann DPM; Location: [facility] OR; Service: Podiatry ANKLE SURGERY Left BYPASS PERONEAL FEMORAL Right 09/07/2018 Procedure: BYPASS PERONEAL FEMORAL, RIGHT SAPHENOUS VEIN HARVEST, COMPLETION ANGIOGRAM; Surgeon: Mohsen Sarabia MD; Location: [facility] NEURO OR; Service: Cardiovascular CARDIAC CATHETERIZATION Left 09/05/2018 Procedure: Angio Lower Extremity; Surgeon: Ben Hahn MD; Location: [facility] 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; Service: Cardiovascular CARDIAC SURGERY 2017 triple bypass EGD N/A 10/10/2018 Procedure: ESOPHAGOGASTRODUODENOSCOPY; Surgeon: Ben Jensen MD; Location: [facility] End[facility]; Service: Gastroenterology EYE SURGERY Right 2015 [...] Nare route daily . 16 g 12 qmyyywugbad-untjtswgp-ckkoxzwm (Trelegy Ellipta) 100-62.5-25 mcg DsDv 1 puff [...] 6' 1 Wt 113.4 kg (250 lb) OpR452% BMI 32.98 kg/m PHYSICAL EXAM General: The [...] intolerance. 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 [...] recently Prior Level of Function Level of [place] - Transfers/Ambulation/Mobility: Independent with household ambulation, Independent with community ambulation Level of [place] - ADLs: Independent Level of [place] - Homemaking: Independent Driving: Patient drives Past Medical History: Diagnosis Date Arthritis Avascular necrosis of bone of hip ([facility]) Claudication (HCC) Coronary artery disease Herpes zoster Hyperlipidemia Hypertension PAD (peripheral artery disease) ([facility]) 01/21/2022 Prostate cancer ([facility]) Vascular disease Past Surgical History: Procedure Laterality Date 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/08/2018 Procedure: LEFT MIDFOOT AMPUTATION; Surgeon: Flynn Mann DPM; Location: [facility] OR; Service: Podiatry ANKLE SURGERY Left BYPASS PERONEAL FEMORAL Right 09/07/2018 Procedure: BYPASS PERONEAL FEMORAL, RIGHT SAPHENOUS VEIN HARVEST, COMPLETION ANGIOGRAM; Surgeon: Mohsen Sarabia MD; Location: [facility] NEURO OR; Service: Cardiovascular CARDIAC CATHETERIZATION Left 09/05/2018 Procedure: Angio Lower Extremity; Surgeon: Ben Hahn MD; Location: [facility] 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; Service: Cardiovascular CARDIAC SURGERY 2017 triple bypass EGD N/A 10/10/2018 Procedure: ESOPHAGOGASTRODUODENOSCOPY; Surgeon: Ben Jensen MD; Location: [facility] End[facility]; Service: Gastroenterology EYE SURGERY Right 2015 [...] of Occupational Therapy Plan of Care. * Eliud Thompson RN - 11/04/2022 11:08 AM ESTAssociated Order(s): IP CONSULT TO CARDIOLOGY - PERIPHERAL VASC DISEASE Information only. Cardiology consult completed by Aminah Calixto CNP 3.10.23. See note for details. * Gustavo Macdonald CNP - 11/04/2022 6:50 AM ESTAssociated Order(s): IP CONSULT TO ORTHOPEDIC SURGERY CONSULT NOTE Patient Name: Tristin Powell Admit Date: [id number] MR #: [id number] : 1940 Physicians: Flash Lovelace MD (Family); [...] HLD, HTN, prostate cancer presenting to [facility] 11/03 with CAP. Patient also [...] MIDFOOT AMPUTATION; Surgeon: Flynn Mann DPM; Location: [facility] OR; Service: Podiatry ANKLE SURGERY Left BYPASS PERONEAL FEMORAL Right 09/07/2018 Procedure: BYPASS PERONEAL FEMORAL, RIGHT SAPHENOUS VEIN HARVEST, COMPLETION ANGIOGRAM; Surgeon: Mohsen Sarabia MD; Location: [facility] NEURO OR; Service: Cardiovascular CARDIAC CATHETERIZATION Left 09/05/2018 Procedure: Angio Lower Extremity; Surgeon: Ben Hahn MD; Location: [facility] 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; Service: Cardiovascular CARDIAC SURGERY 2017 triple bypass EGD N/A 10/10/2018 Procedure: ESOPHAGOGASTRODUODENOSCOPY; Surgeon: Ben Jensen MD; Location: [facility] [place]; Service: Gastroenterology EYE SURGERY Right 2015 [...] sprays by Each Nare route daily . ehhmhsightq-aehhaesfz-dpgmjwri (Trelegy Ellipta) 100-62.5-25 mcg DsDv 1 puff [...] his primary care physician. documented in this [id number] Consult note* Kory Mei CNP - 11/07/2022 10:11 AM EDTAssociated Order(s): IP CONSULT TO CARDIOLOGY General Cardiology Inpatient Consult Heart & Vascular [place] [facility] 11/07/2022 Kory Mei CNP [facility] Rounding RN [phone] Patient: Tristin Powell Date of : 1940 (82 y.o.) Referring Provider: Refer to consult order in electronic medical record PCP: Flash Lovelace MD Plastic Sewer: Follows with cardiology at [facility] Assessment/Plan: Atypical chest pain Elevated troponins Admit [...] walking to bathroom Mildly hypotensive Cr bumped 3/12 In setting of over diuresis with IV [...] consulted. -Follow up with PCP or personal application integration specialist in 1-2 weeks Coronary artery disease History of multiple stents and subsequent coronary artery bypass graft x 3 (CHAVEZ to Diag, SVG to OM1, SVG to PDA) at [facility] in [place] 10/2016 Left heart catheterization prior to coronary [...] Complained of chest pain and orthostatic lightheadedness 3/13 for which cardiology was consulted. Patient treated as outpatient for pneumonia and seen at [facility] ED on 10/30 for fever, persistent frequent cough with associated chest pain, n/v, decrease appetite, weakness, and mild dyspnea. Per patient was told by PCP that there was also Fluid on his lungs . Normal BNP at [facility] ED. Discharged on ATB. Since admit he [...] bypass graft. Not following routinely with his application integration specialist. Imaging: I independently reviewed the EKG and agree with the interpretation(s) with the following comments. SR, isolated flat T wave lead III; ECG today with chest pain: Sr with occasional PVC, TWA lead III,aVF EKG 12-lead Final Result by Interface, Lab Results In [place] [facility] (11/03/2022 1658) Echocardiogram complete w contrast [...] PAD (peripheral artery disease) ([facility]) 01/21/2022 Prostate cancer ([facility]) Vascular disease Past Surgical History: Procedure Laterality Date 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/08/2018 Procedure: LEFT MIDFOOT AMPUTATION; Surgeon: Flynn Mann DPM; Location: [facility] OR; Service: Podiatry ANKLE SURGERY Left BYPASS PERONEAL FEMORAL Right 09/07/2018 Procedure: BYPASS PERONEAL FEMORAL, RIGHT SAPHENOUS VEIN HARVEST, COMPLETION ANGIOGRAM; Surgeon: Mohsen Sarabia MD; Location: [facility] NEURO OR; Service: Cardiovascular CARDIAC CATHETERIZATION Left 09/05/2018 Procedure: Angio Lower Extremity; Surgeon: Ben Hahn MD; Location: [facility] 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; Service: Cardiovascular CARDIAC SURGERY 2017 triple bypass EGD N/A 10/10/2018 Procedure: ESOPHAGOGASTRODUODENOSCOPY; Surgeon: Ben Jensen MD; Location: [facility]; Service: Gastroenterology EYE SURGERY Right 2015 [...] PRN Duke Claros MD 4 mg at 013 oxyCODONE-acetaminophen (PERCOCET) 5-325 mg per tablet 1 [...] cardiac issues or concerns. Jaziel Jeffries MD, [facility] Inpatient Rounding [phone] Office [phone] [facility] Work Phone: [phone]) [phone] Consult note* Aaron Fenton DPM - 11/07/2022 7:07 AM EDTAssociated Order(s): IP CONSULT TO PODIATRY Critical Limb Care Consult Note Tristin Powell AGE: 82 y.o. GENDER: male : 1940 EPISODE DATE: 11/03/2022 Assessment/Plan: Tristin Powell is an 82 year old male with a history of Prostate Cancer, CAD, PAD (left foot amputation 2018), Hypertension, HFpEF who presented to [facility] 11/03/2022 with persistent pneumonia despite [...] ankle. He will need to go to [facility] for an adjustment to help prevent [...] of bone of hip ([facility]) Claudication ([facility]) Coronary artery disease Herpes zoster Hyperlipidemia Hypertension PAD (peripheral artery disease) ([facility]) 01/21/2022 Prostate cancer ([facility]) Vascular disease PAST SURGICAL HISTORY Past Surgical History: Procedure Laterality Date 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/08/2018 Procedure: LEFT MIDFOOT AMPUTATION; Surgeon: Flynn Mann DPM; Location: [facility] OR; Service: Podiatry ANKLE SURGERY Left BYPASS PERONEAL FEMORAL Right 09/07/2018 Procedure: BYPASS PERONEAL FEMORAL, RIGHT SAPHENOUS VEIN HARVEST, COMPLETION ANGIOGRAM; Surgeon: Mohsen Sarabia MD; Location: [facility] NEURO OR; Service: Cardiovascular CARDIAC CATHETERIZATION Left 09/05/2018 Procedure: Angio Lower Extremity; Surgeon: Ben Hahn MD; Location: [facility] 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; Service: Cardiovascular CARDIAC SURGERY 2017 triple bypass EGD N/A 10/10/2018 Procedure: ESOPHAGOGASTRODUODENOSCOPY; Surgeon: Ben Jensen MD; Location: [facility] [place]; Service: Gastroenterology EYE SURGERY Right 2015 [...] Nare route daily . 16 g 12 zlqytvceamr-oqrobnacf-jzabyeua (Trelegy Ellipta) 100-62.5-25 mcg DsDv 1 puff [...] 6' 1 Wt 113.4 kg (250 lb) PeA482% BMI 32.98 kg/m PHYSICAL EXAM General: The [...] Fenton DPM 11/07/2022 at 7:08 AM ote [facility] Work Phone: [phone] Note* Plan of Care - Alma Delia [...] Completed Goal: Knowledge of Enviroment Outcome: Completed [id number] Miscellaneous Notes* Plan of Care - Alma [...] in both lower extremities to approximately the tca-xf-qvqrj calf area bilaterally, but there are no signs of infection. There is no redness. documented in this [id number] Consult note* Lyn Cerrato OT - 11/04/2022 [...] intolerance. 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 [...] recently Prior Level of Function Level of [place] - Transfers/Ambulation/Mobility: Independent with household ambulation, Independent with community ambulation Level of [place] - ADLs: Independent Level of [place] - Homemaking: Independent Driving: Patient drives Past Medical History: Diagnosis Date Arthritis Avascular necrosis of bone of hip (HCC) Claudication (HCC) Coronary artery disease Herpes zoster Hyperlipidemia Hypertension PAD (peripheral artery disease) ([facility]) 01/21/2022 Prostate cancer ([facility]) Vascular disease Past Surgical History: Procedure Laterality Date 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/08/2018 Procedure: LEFT MIDFOOT AMPUTATION; Surgeon: Flynn Mann DPM; Location: [facility] OR; Service: Podiatry ANKLE SURGERY Left BYPASS PERONEAL FEMORAL Right 09/07/2018 Procedure: BYPASS PERONEAL FEMORAL, RIGHT SAPHENOUS VEIN HARVEST, COMPLETION ANGIOGRAM; Surgeon: Mohsen Sarabia MD; Location: [facility] NEURO OR; Service: Cardiovascular CARDIAC CATHETERIZATION Left 09/05/2018 Procedure: Angio Lower Extremity; Surgeon: Ben Hahn MD; Location: [facility] 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; Service: Cardiovascular CARDIAC SURGERY 2017 triple bypass EGD N/A 10/10/2018 Procedure: ESOPHAGOGASTRODUODENOSCOPY; Surgeon: Ben Jensen MD; Location: [facility] [place]; Service: Gastroenterology EYE SURGERY Right 2015 [...] completion of Occupational Therapy Plan of Care. [id number] Consult note* Eliud Thompson RN - 11/04/2022 11:08 AM EST Associated Order(s): IP CONSULT TO CARDIOLOGY - PERIPHERAL VASC DISEASE Information only. Cardiology consult completed by Aminah Calixto [facility] 3.10.23. See note for details. [id number] Note* Quick Note - Rojelio Mackenzie DO [...] follow-up Rojelio Mackenzie, PGY-4 Orthopedic Surgery Resident [employer] Work Phone: [phone]) [phone] Note* Quick Note - Catina Calixto CNP - 11/04/2022 8:06 AM EST Received consult for patient with chronic PAD s/p L fem-peroneal (GSV) bypass per Dr. Sarabia in 2019. He has no acute issues or lower extremity wounds and denies BLE claudication. No indication for additional inpatient work up/resting. Patient can follow up with Dr. Sarabia as an outpatient. [id number] Evaluation + Plan note* Assessment & Plan [...] 2022 was known to be reduced (0.5) [id number] Evaluation + Plan note* Assessment & Plan [...] Dr. Messina as needed if symptoms persist [id number] Consult note* Gustavo Macdonald CNP - 11/04/2022 6:50 AM EST Associated Order(s): IP CONSULT TO ORTHOPEDIC SURGERY CONSULT NOTE Patient Name: Tristin Powell Admit Date: [id number] MR #: [id number] : 1940 Physicians: Flash Lovelace MD (Family); [...] HLD, HTN, prostate cancer presenting to [facility] 11/03 with CAP. Patient also [...] of bone of hip ([facility]) Claudication ([facility]) Coronary artery disease Herpes zoster Hyperlipidemia Hypertension PAD (peripheral artery disease) ([facility]) 01/21/2022 Prostate cancer ([facility]) Vascular disease Past Surgical History: Procedure Laterality Date 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/08/2018 Procedure: LEFT MIDFOOT AMPUTATION; Surgeon: Flynn Mann DPM; Location: [facility] OR; Service: Podiatry ANKLE SURGERY Left BYPASS PERONEAL FEMORAL Right 09/07/2018 Procedure: BYPASS PERONEAL FEMORAL, RIGHT SAPHENOUS VEIN HARVEST, COMPLETION ANGIOGRAM; Surgeon: Mohsen Sarabia MD; Location: [facility] NEURO OR; Service: Cardiovascular CARDIAC CATHETERIZATION Left 09/05/2018 Procedure: Angio Lower Extremity; Surgeon: Ben Hahn MD; Location: [facility] 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; Service: Cardiovascular CARDIAC SURGERY 2017 triple bypass EGD N/A 10/10/2018 Procedure: ESOPHAGOGASTRODUODENOSCOPY; Surgeon: Ben Jensen MD; Location: [facility]; Service: Gastroenterology EYE SURGERY Right 2015 [...] sprays by Each Nare route daily . sgfeclcrjfv-llzhcuuje-sjonqgkf (Trelegy Ellipta) 100-62.5-25 mcg DsDv 1 puff [...] should follow-up with his primary care physician. [id number] Note* Plan of Care - Deisi Gimenez RN - 11/04/2022 3:01 AM EST Problem: Actual or potential alteration in health Goal: Absence of healthcare acquired conditions Outcome: Partially Met Goal: Knowledge of Interdisciplinary Plan of Care Outcome: Partially Met Goal: Knowledge of Enviroment Outcome: Partially Met Problem: Pressure Ulcer - Risk of Goal: Absence of pressure ulcer Outcome: Partially Met [id number] History and physical note* Duke Claros MD - 11/03/2022 9:58 PM EST [facility] History and Physical Note 11/03/22 Tristin Bazan Sherry 1940 [id number] Assessment/Plan: Tristin Powell is a 82 y.o. male with a history of Prostate Cancer, CAD, PAD (left foot amputation 2018) HTN, HFpEF who presented to [facility] 11/03/2022 with persistent pneumonia despite [...] 2018) HTN, HFpEF who presented to [facility] 11/03/2022 with persistent pneumonia despite [...] PAD (peripheral artery disease) ([facility]) 01/21/2022 Prostate cancer ([facility]) Vascular disease Past Surgical History: Procedure Laterality Date 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/08/2018 Procedure: LEFT MIDFOOT AMPUTATION; Surgeon: Flynn Mann DPM; Location: [facility] OR; Service: Podiatry ANKLE SURGERY Left BYPASS PERONEAL FEMORAL Right 09/07/2018 Procedure: BYPASS PERONEAL FEMORAL, RIGHT SAPHENOUS VEIN HARVEST, COMPLETION ANGIOGRAM; Surgeon: Mohsen Sarabai MD; Location: [facility] NEURO OR; Service: Cardiovascular CARDIAC CATHETERIZATION Left 09/05/2018 Procedure: Angio Lower Extremity; Surgeon: Ben Hahn MD; Location: [facility] 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; Service: Cardiovascular CARDIAC SURGERY 2017 triple bypass EGD N/A 10/10/2018 Procedure: ESOPHAGOGASTRODUODENOSCOPY; Surgeon: Ben Jensen MD; Location: [facility]; Service: Gastroenterology EYE SURGERY Right 2015 [...] 64 GLUCOSE mg/dL 92 CALCIUM mg/dL 9.5 [id number] History and physical note* Duke Claros MD - 11/03/2022 9:58 PM EST [facility] History and Physical Note 11/03/22 Tristin Powell 1940 [id number] Assessment/Plan: Tristin Powell is a 82 y.o. male with a history of Prostate Cancer, CAD, PAD (left foot amputation 2018) HTN, HFpEF who presented to [facility] 11/03/2022 with persistent pneumonia despite [...] 2018) HTN, HFpEF who presented to [facility] 11/03/2022 with persistent pneumonia despite [...] (peripheral artery disease) (HCC) 01/21/2022 Prostate cancer ([facility]) Vascular disease Past Surgical History: Procedure Laterality Date 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/08/2018 Procedure: LEFT MIDFOOT AMPUTATION; Surgeon: Flynn Mann DPM; Location: [facility] OR; Service: Podiatry ANKLE SURGERY Left BYPASS PERONEAL FEMORAL Right 09/07/2018 Procedure: BYPASS PERONEAL FEMORAL, RIGHT SAPHENOUS VEIN HARVEST, COMPLETION ANGIOGRAM; Surgeon: Mohsen Sarabia MD; Location: [facility] NEURO OR; Service: Cardiovascular CARDIAC CATHETERIZATION Left 09/05/2018 Procedure: Angio Lower Extremity; Surgeon: Ben Hahn MD; Location: [facility] 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; Service: Cardiovascular CARDIAC SURGERY 2017 triple bypass EGD N/A 10/10/2018 Procedure: ESOPHAGOGASTRODUODENOSCOPY; Surgeon: Ben Jensen MD; Location: [facility]; Service: Gastroenterology EYE SURGERY Right 2015 [...] 92 CALCIUM mg/dL 9.5 documented in this [id number] Emergency department Note* MIGUE Berumen - 11/03/2022 9:35 PM EST [facility] to write admission orders. [phone]. [id number] Emergency department Note* MIGUE Berumen - 11/03/2022 9:35 PM EST [facility] to write admission orders. [phone]. * Sharron Khan PA-C - 11/03/2022 5:46 [...] so he went to the ED in [facility]. He had a repeat chest [...] Normal BASIC METABOLIC PANEL - Normal Narrative: [facility] has implemented the eGFR calculation approach that does not have a coefficient for race that conforms to the NKF-ASN Task Force Recommendations. CBC AND DIFFERENTIAL Narrative: The following orders were created for panel order CBC w/ Diff. Procedure Abnormality Status --------- ------ CBC Auto Differential[[id number]] Abnormal Final result Please view results for [...] this documentation, there is a possibility of pqtec-f-lnas errors inherent to this technology that may be missed during proofreading.) Sharron Khan PA-C 11/03/22 4096 * Aimee Owens RN - 11/03/2022 12:43 PM EST Pt arrives to the ED with multiple complaints. Per daughter patient has fluid on his lungs and there is concern for pneumonia. Daughter also states that there is concern for infection in his foot amputation from 2019. documented in this [id number] Note* ED Attestation Note - Ronnie Montoya [...] in both lower extremities to approximately the meo-kf-poyqk calf area bilaterally, but there are no signs of infection. There is no redness. [employer] Work Phone: [phone] Physician Emergency department Note* Sharron Khan PA-C [...] so he went to the ED in [facility]. He had a repeat chest [...] Normal BASIC METABOLIC PANEL - Normal Narrative: [facility] has implemented the eGFR calculation approach that does not have a coefficient for race that conforms to the NKF-ASN Task Force Recommendations. CBC AND DIFFERENTIAL Narrative: The following orders were created for panel order CBC w/ Diff. Procedure Abnormality Status --------- ------ CBC Auto Differential[[id number]] Abnormal Final result Please view results for [...] this documentation, there is a possibility of jqgcr-g-xwuw errors inherent to this technology that may be missed during proofreading.) Sharrondena Khan PA-C 11/03/222150 [facility] Work Phone: [phone] Emergency department Triage note* Aimee Owens RN - 11/03/2022 12:43 PM EST Pt arrives to the ED with multiple complaints. Per daughter patient has fluid on his lungs and there is concern for pneumonia. Daughter also states that there is concern for infection in his foot amputation from 2019. [id number] History of Present illness Narrative* Violetta Borjas MA - 09/20/2022 11:[address] Sarabia has ordered a carotid duplex. An attempt was made by phone and a letter was mailed with no response. Patient is due for testing for PAD 05/20. documented in this [id number] History of Present illness Narrative* Dahiana Coelho - 07/14/2022 11:00 AM EST Ortho Nurse - Established Patient Intake Room#: 5 Date: 07/14/2022 10:49 AM Patient: Tristin Powell . MR#: [id number] : 1940 Age: 82 y.o. 1yr R [...] has No Known Allergies. * Scar Ortega APRN-TECHNOLOGY SERVICES MANAGER - 07/14/2022 11:00 AM EST HPI: Patient [...] 10:49 AM Patient: Tristin Powell . MR#: [id number] : 1940 Age: 82 y.o. 1yr R [...] GAL CARDIAC CATH/EP LAB CORONARY STENT PLACEMENT 2008 [...] No Known Allergies. documented in this [facility]09-06-2022 Evaluation note* Encounter Date Diagnosis Assessment Notes Treatment Notes Treatment Clinical Notes Apr, Peripheral vascular disease, uns pecified (ICD-10 - I73.9) Apr,ther specified postprocedural states (ICD-10 - Z98.890) Apr,therPeripheral vascular occlusive disease I reviewed the arteriographic findings [...] will see him back in 6 months. [facility] Other 08-23-2022 Evaluation note* Encounter Date Diagnosis Assessment Notes Treatment Notes Treatment Clinical Notes Mar, Peripheral vascular disease, uns pecified (ICD-10 - I73.9) Mar,ther specified postprocedural states (ICD-10 - Z98.890) Mar,therPeripheral arterial occlusive disease It seems likely that he has a failed left lower extremity bypass resulting in new rest pain in his left foot and has severe peripheral vascular occlusive disease of his right lower extremity with rest pain. He will undergo diagnostic arteriogram to define his anatomy and look at options for reconstruction. He understands and agrees with that plan. [facility] Other 08-22-2022 History of Present illness Narrative* Aaron Fenton DPM - 04/18/2022 5:23 PM EDT Refer to note during admission documented in this [id number] Hospital course Narrative* Alexander Pascual MD - 04/15/2022 6:51 PM EDT Images from the original note were not included. [facility] DISCHARGE SUMMARY Tristin Powell Account: [id number] Admitted: 04/14/2022 Discharge Date/Time: 04/15/22 / 7:44 PM Clinical Summary Handoff to PCP Routine hospital follow up Tristin Powell is a 82 y.o. male with a history of HTN, HFpEF, PAD with bypass/stenting/amputation, CAD who recently discharged 01/21/22 after cellulitis L ankle who presented to [facility] Observation 04/14/2022 with worsening R [...] Physician(s) Family: Flash Lovelace MD, , Address: [address] [place] [address] Follow Up: Mohsen Sarabia MD [facility] [place] [address] Follow up Call office to schedule followup appointment in ~2 weeks Flash Lovelace MD [address] [place] [address] Follow up As needed Laboratory Follow Up by [facility]: None Additional Information: Patient seen and examined day of discharge. For more information regarding patient's care, including complete radiology reports, please contact [facility] at Patient instructions, including activity, were given to the patient/family at discharge. Please seethe After Visit Summary in the medical record for details. Completed by: Alexander Pascual on 04/15/22, 7:44 PM documented in this [id number] Note* Plan of Care - Lizz Damon [...] Goal: Absence of falls Outcome: Partially Met [id number] Miscellaneous Notes* Plan of Care - Lizz [...] falls Outcome: Partially Met documented in this [id number] History of Present illness Narrative* Rima Wu DO - 04/15/2022 1:01 PM EDT [facility] 04/15/2022 Tristin Powell 1940 [id number] Assessment/Plan: Tristin Hortensia Powell is a 82 y.o. male with a history of HTN, HFpEF, PAD with bypass/stenting/amputation, CAD who recently discharged 01/21/22 after cellulitis L ankle who presented to [facility] Observation 04/14/2022 with worsening R [...] Estimated discharge date:04/15/22 Subjective: Patient new to pa, seen and examined, with labs/imaging reviewed and [...] Date INR 1.1 04/14/2022 documented in this [id number] Consult note* Darrick Calixto DO - 04/15/2022 [...] s/p CABG x3 who presented to [facility] on 04/14/2022 with CLI of [...] in am - Discussed with Dr. Cornell Calixto DO General Surgery PGY-2 Please contact surgical internal control analyst site damage prevention technician 5PM-6AM and weekends - #[phone] VTS Pager - #[phone] HISTORY OF PRESENT ILLNESS Tristin Powell is a 82 y.o. male with history of PAD, s/p L transmetatarsal amputation (2019, Dr. Mann), s/p peroneal femoral bypass R saphenous vein harvest (2019, Dr. Sarabia), CAD s/p CABG x3 who presented to [facility] on 04/14/2022 with CLI of RLE. Patient presenting with 6 weeks of worsened right lower extremity pain. Patient is limited in his mobility due to his left-sided TMA. Patient reports increasing numbness and pain in his foot as well as claudication symptoms while ambulating. Patient was directed to [facility] by his PCP for evaluation. Per discussion [...] of bone of hip ([facility]) Claudication ([facility]) Coronary artery disease Herpes zoster Hyperlipidemia Hypertension PAD (peripheral artery disease) ([facility]) 01/21/2022 Prostate cancer ([facility]) Vascular disease Past Surgical History: Procedure Laterality Date 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/08/2018 Procedure: LEFT MIDFOOT AMPUTATION; Surgeon: Flynn Mann DPM; Location: [facility] OR; Service: Podiatry ANKLE SURGERY Left BYPASS PERONEAL FEMORAL Right 09/07/2018 Procedure: BYPASS PERONEAL FEMORAL, RIGHT SAPHENOUS VEIN HARVEST, COMPLETION ANGIOGRAM; Surgeon: Mohsen Sarabia MD; Location: [facility] NEURO OR; Service: Cardiovascular CARDIAC CATHETERIZATION Left 09/05/2018 Procedure: Angio Lower Extremity; Surgeon: Ben Hahn MD; Location: [facility] 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; Service: Cardiovascular CARDIAC SURGERY 2017 triple bypass EGD N/A 10/10/2018 Procedure: ESOPHAGOGASTRODUODENOSCOPY; Surgeon: Ben Jensen MD; Location: [facility]; Service: Gastroenterology EYE SURGERY Right [...] personally examined the patient and agree with resident/MINIATURE MODEL MAKER/PA assessment and plan with the following [...] it can be done as an outpatient. [facility] Work Phone: 1(756) 836-535308-19-2022 Consult note* Darrick Calixto DO - 04/15/2022 [...] s/p CABG x3 who presented to [facility] on 04/14/2022 with CLI of [...] Calixto, General Surgery PGY-2 Please contact surgical internal control analyst site damage prevention technician 5PM-6AM and weekends - #[phone] VTS Pager - #[phone] HISTORY OF PRESENT ILLNESS Tristin Powell is a 82 y.o. male with history of PAD, s/p L transmetatarsal amputation (2019, Dr. Mann), s/p peroneal femoral bypass R saphenous vein harvest (2019, Dr. Sarabia), CAD s/p CABG x3 who presented to [facility] on 04/14/2022 with CLI of RLE. Patient presenting with 6 weeks of worsened right lower extremity pain. Patient is limited in his mobility due to his left-sided TMA. Patient reports increasing numbness and pain in his foot as well as claudication symptoms while ambulating. Patient was directed to [facility] by his PCP for evaluation. Per discussion [...] of bone of hip ([facility]) Claudication ([facility]) Coronary artery disease Herpes zoster Hyperlipidemia Hypertension PAD (peripheral artery disease) ([facility]) 01/21/2022 Prostate cancer ([facility]) Vascular disease Past Surgical History: Procedure Laterality Date 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/08/2018 Procedure: LEFT MIDFOOT AMPUTATION; Surgeon: Flynn Mann DPM; Location: [facility] OR; Service: Podiatry ANKLE SURGERY Left BYPASS PERONEAL FEMORAL Right 09/07/2018 Procedure: BYPASS PERONEAL FEMORAL, RIGHT SAPHENOUS VEIN HARVEST, COMPLETION ANGIOGRAM; Surgeon: Mohsen Sarabia MD; Location: [facility] NEURO OR; Service: Cardiovascular CARDIAC CATHETERIZATION Left 09/05/2018 Procedure: Angio Lower Extremity; Surgeon: Ben Hahn MD; Location: [facility] 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; Service: Cardiovascular CARDIAC SURGERY 2017 triple bypass EGD N/A 10/10/2018 Procedure: ESOPHAGOGASTRODUODENOSCOPY; Surgeon: Ben Jensen MD; [place]: [facility] [place]; Service: Gastroenterology EYE SURGERY Right 2015 [...] personally examined the patient and agree with resident/MINIATURE MODEL MAKER/PA assessment and plan with the following [...] done as an outpatient. documented in this [id number] Emergency department Note* Rose Bautista RN - 04/15/2022 12:13 AM EDT Patient moved into hospital bed [id number] Emergency department Note* Rose Bautista RN - 04/15/2022 12:13 AM EDT Patient moved into hospital bed * MIGUE Berumen - 04/14/2022 11:24 PM EDT [facility] [place] write admission orders [id number]. * Carson Brock MD - 04/14/2022 8:24 PM EDT [facility] EMERGENCY DEPARTMENT PCP - Flash Lovelace MD Chief Complaint Patient presents with Leg Swelling HPI MEDICAL DECISION MAKING 82-year-old male presents to [facility] emergency department chief complaint of [...] an ultrasound ordered by his doctor at [facility] with findings concerningfor stenosis to the superficial femoral artery as well as an occlusion of his popliteal artery. His primary doctor recommended he present here for evaluation from his vascular surgeon Dr. Sarabia and patient presents here via triage. Patient reports compliance with home medications including anticoagulation with Xarelto and aspirin. 82-year-old male presents to [facility] emergency department chief plaint of [...] time. He will be admitted to the [facility] observation unit. CLINICAL IMPRESSION 1. PAD [...] limits BASIC METABOLIC PANEL - Normal Narrative: [facility] has implemented the eGFR [...] Procedure Abnormality Status --------- ------ CBC Auto Differential[[id number]] Abnormal Final result Please view results for [...] 5. Chronic findings including severe pancolonic diverticulosis. SZD/Codekko Workstation ID: [id number] Medications Ordered/Given During ED [...] PAD (peripheral artery disease) ([facility]) 01/21/2022 Prostate cancer (HCC) Vascular disease Past Surgical History Past Surgical History: Procedure Laterality Date 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/08/2018 Procedure: LEFT MIDFOOT AMPUTATION; Surgeon: Flynn Mann DPM; Location: [facility] OR; Service: Podiatry ANKLE SURGERY Left BYPASS PERONEAL FEMORAL Right 09/07/2018 Procedure: BYPASS PERONEAL FEMORAL, RIGHT SAPHENOUS VEIN HARVEST, COMPLETION ANGIOGRAM; Surgeon: Mohsen Sarabia MD; Location: [facility] NEURO OR; Service: Cardiovascular CARDIAC CATHETERIZATION Left 09/05/2018 Procedure: Angio Lower Extremity; Surgeon: Ben Hahn MD; Location: [facility] 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; Service: Cardiovascular CARDIAC SURGERY 2017 triple bypass EGD N/A 10/10/2018 Procedure: ESOPHAGOGASTRODUODENOSCOPY; Surgeon: Ben Jensen MD; Location: [facility] [place]; Service: Gastroenterology EYE SURGERY Right 2015 [...] portions of this note were created using [employer] voice recognition software.* Carson Brock MD 04/14/22 2362 * Amairani Bucio RN - 04/14/2022 7:29 PM EDT Patient arrives in a wheelchair with a cc of right leg swelling. The patient was at [facility] and they told him he has a blood clot in the right leg and he needs to come down to [facility] to see hisvascular surgeon that he sees here. documented in this [id number] History and physical note* Jagruti Moore Jr., MD - 04/14/2022 11:51 PM EDT Images from the original note were not included. [facility]™ Medical Obs History and Physical Note 04/15/22 Tristin Powell 1940 [id number] Assessment/Plan: Tristin Powell is a 82 y.o. male with a history of HTN, HFpEF, PAD with bypass/stenting/amputation, CAD who recently discharged 01/21/22 after cellulitis L ankle who presented to [facility] Observation 04/14/2022 with worsening R [...] MIDFOOT AMPUTATION; Surgeon: Flynn Mann DPM; Location: [facility] OR; Service: Podiatry ANKLE SURGERY Left BYPASS PERONEAL FEMORAL Right 09/07/2018 Procedure: BYPASS PERONEAL FEMORAL, RIGHT SAPHENOUS VEIN HARVEST, COMPLETION ANGIOGRAM; Surgeon: Mohsen Sarabia MD; Location: [facility] NEURO OR; Service: Cardiovascular CARDIAC CATHETERIZATION Left 09/05/2018 Procedure: Angio Lower Extremity; Surgeon: Ben Hahn MD; Location: [facility] 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; Service: Cardiovascular CARDIAC SURGERY 2017 triple bypass EGD N/A 10/10/2018 Procedure: ESOPHAGOGASTRODUODENOSCOPY; Surgeon: Ben Jensen MD; [place]: [facility] [place]; Service: Gastroenterology EYE SURGERY Right 2015 [...] Results Component Value Date INR 1.1 04/14/2022 [id number] History and physical note* Jagruti Moore Jr., MD - 04/14/2022 11:51 PM EDT Images from the original note were not included. [employer] Obs History and Physical Note 04/15/22 Tristin Powell 1940 [id number] Assessment/Plan: Tristin Powell is a 82 y.o. male with a history of HTN, HFpEF, PAD with bypass/stenting/amputation, CAD who recently discharged 01/21/22 after cellulitis L ankle who presented to [facility] Observation 04/14/2022 with worsening R [...] MIDFOOT AMPUTATION; Surgeon: Flynn Mann DPM; Location: [facility] OR; Service: Podiatry ANKLE SURGERY Left BYPASS PERONEAL FEMORAL Right 09/07/2018 Procedure: BYPASS PERONEAL FEMORAL, RIGHT SAPHENOUS VEIN HARVEST, COMPLETION ANGIOGRAM; Surgeon: Mohsen Sarabia MD; Location: [facility] NEURO OR; Service: Cardiovascular CARDIAC CATHETERIZATION Left 09/05/2018 Procedure: Angio Lower Extremity; Surgeon: Ben Hahn MD; Location: [facility] 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; Service: Cardiovascular CARDIAC SURGERY 2017 triple bypass EGD N/A 10/10/2018 Procedure: ESOPHAGOGASTRODUODENOSCOPY; Surgeon: Ben Jensen MD; [place]: [facility] [place]; Service: Gastroenterology EYE SURGERY Right 2015 [...] Date INR 1.1 04/14/2022 documented in this [id number] Emergency department Note* MIGUE Berumen - 04/14/2022 11:24 PM EDT [facility] [place] [facility] write [facility] orders [id number]. [id number] Physician Emergency department Note* Carson Brock MD - 04/14/2022 8:24 PM EDT [facility] EMERGENCY DEPARTMENT PCP - Flash Lovelace MD Chief Complaint Patient presents with Leg Swelling HPI MEDICAL DECISION MAKING 82-year-old male presents to [facility] emergency department chief complaint of [...] an ultrasound ordered by his doctor at [facility] with findings concerningfor stenosis to the superficial femoral artery as well as an occlusion of his popliteal artery. His primary doctor recommended he present here for evaluation from his vascular surgeon Dr. Sarabia and patient presents here via triage. Patient reports compliance with home medications including anticoagulation with Xarelto and aspirin. 82-year-old male presents to [facility] emergency department chief plaint of [...] time. He will be admitted to the [facility] observation unit. CLINICAL IMPRESSION 1. PAD [...] limits BASIC METABOLIC PANEL - Normal Narrative: [facility] has implemented the eGFR [...] Procedure Abnormality Status --------- ------ CBC Auto Differential[[id number]] Abnormal Final result Please view results for [...] PAD (peripheral artery disease) ([facility]) 01/21/2022 Prostate cancer (HCC) Vascular disease Past Surgical History Past Surgical History: Procedure Laterality Date 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/08/2018 Procedure: LEFT MIDFOOT AMPUTATION; Surgeon: Flynn Mann DPM; Location: [facility] OR; Service: Podiatry ANKLE SURGERY Left BYPASS PERONEAL FEMORAL Right 09/07/2018 Procedure: BYPASS PERONEAL FEMORAL, RIGHT SAPHENOUS VEIN HARVEST, COMPLETION ANGIOGRAM; Surgeon: Mohsen Sarabia MD; Location: [facility] NEURO OR; Service: Cardiovascular CARDIAC CATHETERIZATION Left 09/05/2018 Procedure: Angio Lower Extremity; Surgeon: Ben Hahn MD; Location: [facility] 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; Service: Cardiovascular CARDIAC SURGERY 2017 triple bypass EGD N/A 10/10/2018 Procedure: ESOPHAGOGASTRODUODENOSCOPY; Surgeon: Ben Jensen MD; [place]: [facility] [place]; Service: Gastroenterology EYE SURGERY Right 2015 [...] portions of this note were created using [employer] voice recognition software.* Carson Brock MD 04/14/22 5725 [facility] Work Phone: 1(577) 871-902908-18-2022 Emergency department Triage note* Amairani Bucio RN - 04/14/2022 7:29 PM EDT Patient arrives in a wheelchair with a cc of right leg swelling. The patient was at [facility] and they told him he has a blood clot in the right leg and he needs to come down to [facility] to see hisvascular surgeon that he sees here. [id number] History of Present illness Narrative* Katie Anna RN - 04/14/2022 5:54 PM EDT Vascular Resident paged twice, awaiting response Dr. Sarabia notified that patient is coming to [facility] ED for further evaluation. documented in this [id number] NoteFINDINGS: ARTERIAL EVALUATION RIGHT LEFT VELOCITIES PHASICITY [...] signed by Nabor Beard on 04/14/2022 1551[facility]07-01-2022 History of Present illness Narrative* Angela Guerra MD - 02/25/2022 10:00 AM EDT PULMONOLOGY CONSULT 02/25/2022 Patient: Tristin Powell Date of : 1940 Site: [facility] Referring Provider: Refer to consult order in electronic medical record Provider: Angela Guerra MD ASSESSMENT/PLAN: Tristin Sherry 82 y.o. 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 He reports [...] MIDFOOT AMPUTATION; Surgeon: Flynn Mann DPM; Location: [facility] OR; Service: Podiatry ANKLE SURGERY Left BYPASS PERONEAL FEMORAL Right 09/07/2018 Procedure: BYPASS PERONEAL FEMORAL, RIGHT SAPHENOUS VEIN HARVEST, COMPLETION ANGIOGRAM; Surgeon: Mohsen Sarabia MD; Location: [facility] NEURO OR; Service: Cardiovascular CARDIAC CATHETERIZATION Left 09/05/2018 Procedure: Angio Lower Extremity; Surgeon: Ben Hahn MD; Location: [facility] 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; Service: Cardiovascular CARDIAC SURGERY 2017 triple bypass EGD N/A 10/10/2018 Procedure: ESOPHAGOGASTRODUODENOSCOPY; Surgeon: Ben Jensen MD; Location: [facility] [place]; Service: Gastroenterology EYE SURGERY Right 2015 [...] Radiology, Cardiology, and Medications documented in this [id number] History of Present illness Narrative* Alma Delia Page RN - 01/21/2022 2:58 PM EDT This RN went over discharge instructions and prescriptions with the patient. Pt verbalized understanding. All questions were answered. IV was removed. All personal belongings sent home with patient. PT was taken down by wheelchair to [facility] main entrance. * Gustavo Gonzalez DO - 01/21/2022 7:01 AM EDT [facility] Inpatient Progress Note 01/21/2022 Tristin Powell 1940 [id number] Assessment/Plan: Tristin Powell is a 82 y.o. male with a history of HTN, CAD, PVD who presented to [facility] 01/18/2022 with progressive left ankle pain, redness, swelling not improved with oral antibiotics. Admit XR non-acute, temp 100.7, CRP 63.5, WBC 6.76, ESR 18. Cultures with no growth to date. LLE Cellulitis: Per chart, hx MRSA in 2019. Presented progressive severe left ankle pain, edema, warmth, tenderness x 3 days [employer]SM CONSULTANT not improved with keflex/bactrim. Admit temp 100.7, has remained afebrile ever since. No leukocytosis. Admit blood cultures NGTD. Admit CTA/runoff with no evidence of deeper infection, LLE graft patent. Continue vancomycin, will plan to transition to PO Bactrim on 01/21.Continue pain control. Recommend outpatient follow-up with [facility] in [place]. Bilateral PAD: Per history. LLE angio w/ [...] last 7 days Lab Units 01/21/22 0604 01/20/2282201/19/22335 WBC K/mcL 4.08* 4.76 5.34 HGB g/dL [...] pancreatic lesion.He will follow up with his esthetician/owner and [facility] in [place] to determine if his prothesis could be [...] calcified granulomas. -Solitary lung nodule malignancy risk ([place]) score: 17.6% -Recommend PET as an outpatient and follow up with [facility] closer to home. Possible biopsy iffindings persist. [...] Carson Banks MD 1:01 PM 01/20/22 Pager: [phone] Chief Complaint Chief Complaint Patient presents with [...] and recommend this to be done at [facility] with either Drs. Carson Gallagher or Angela Guerra. Please place referral to either their clinics [...] 1200. Pharmacist: Rossana Fernandez RPh,PharmD Contact Number: [phone] (Referral.IM) or secure chat * Gustavo Gonzalez DO - 01/20/2022 7:01 AM EDT [facility] Inpatient Progress Note 01/20/2022 Tristin Powell 1940 [id number] Assessment/Plan: Tristin Powell is a 82 y.o. male with a history of HTN, CAD, PVD who presented to [facility] 01/18/2022 with progressive left ankle pain, redness, swelling not improved with oral antibiotics. Admit XR non-acute, temp 100.7, CRP 63.5, WBC 6.76, ESR 18. LLE Cellulitis: Per chart, hx MRSA in 2019. Presented progressive severe left ankle pain, edema, warmth, tenderness x 3 days CSM CONSULTANT not improved with keflex/bactrim. Admit temp 100.7, has remained afebrile ever since. No leukocytosis. Admit blood cultures NGTD. Admit CTA/runoff with no evidence of deeper infection, LLE graft patent. Continue vancomycin, will plan to transition to PO Bactrim on 01/21.Continue pain control. Recommend outpatient follow-up with [facility] in [place]. Bilateral PAD: Per history. LLE angio w/ [...] from last 7 days Lab Units 01/19/2233501/18/22211601/18/222104 WBC K/mcL 5.34 -- 6.76 HGB g/dL [...] Foot Amputation, CAD who presented to [facility] on 01/18/22 with 3-4 days [...] improving. Discussed he should follow up with [facility] in [place] to further explore if his stump prothesis [...] Rosas MD - 01/19/2022 6:43 AM EDT [facility] Inpatient Progress Note 01/19/2022 Tristin Powell 1940 [id number] Assessment/Plan: Tristin Powell is a 82 y.o. male with a history of HTN, CAD, PVD who presented to [facility] 01/18/2022 with progressive left ankle pain, redness, swelling not improved with oral antibiotics. Admit XR non-acute, temp 100.7, CRP 63.5, WBC 6.76, ESR 18. LLE Cellulitis: Per chart, hx MRSA in 2018. Presented progressive severe left ankle pain, edema, warmth, tenderness x 3 days CSM CONSULTANT not improved with keflex/bactrim. Admit temp 100.7. [...] from last 7 days Lab Units 01/19/22 03301/18/22211601/18/225 WBC K/mcL 5.34 -- 6.76 HGB g/dL [...] Foot Amputation, CAD who presented to [facility] on 01/18/22 with 3-4 days [...] urine output (if available) daily.vancomyicin / aminoglycoside recommendations:[id number]:s} Pharmacy will continue to follow, order levels, and make adjustments as needed. Please call pharmacy with questions. Current antibiotic regimen includes: ceftriaxone 2000mg q24h Objective: Ht Readings from Last 1 Encounters: 01/18/22 6' 2 (188 cm) Wt Readings from Last 1 Encounters: 01/18/22 113.4 kg (250 lb) [place] body weight: 82.2 kg (181 lb 3.5 [...] Component Value Units Date/Time Blood Culture Aerobic/Anaerobic [[id number]] (Normal) Collected: 01/18/222104 Order Status: Completed Specimen: Blood, Peripheral Updated: 01/18/222357 Culture In Progress; No Growth to Date Blood Culture Aerobic/Anaerobic [[id number]] (Normal) Collected: 01/18/222104 Order Status: Completed Specimen: Blood, Peripheral Updated: 01/18/222357 Culture In Progress; No Growth to Date Pharmacist: El Owen RPh,PharmD Contact Number: documented in this [id number] Hospital course Narrative* Muna Otto MD - 01/21/2022 2:32 PM EDT Images from the original note were not included. MEDONE DISCHARGE SUMMARY Tristin Powell Account: [id number] Admitted: 01/18/2022 PCP: Flash Lovelace MD Discharge [...] Foot Amputation, CAD who presented to [facility] on 01/18/22 with 3-4 days [...] lesion. He will follow up with his esthetician/owner (Dr. Mann) and [facility] in [place] to determine if his prothesis could be [...] Your Medications These medications were sent to [facility] [id number] [facility] [address] [facility] [address] [place] [address] albuterol 2.5 mg /3 mL (0.083 %) nebulizer solution sulfamethoxazole-trimethoprim 800-160 mg per tablet tiotropium bromide 2.5 mcg/actuation Mist Physician(s) Family: Flash Lovelace MD, , Address: [address] [place] [id number] Follow Up: Flash Lovelace MD [address] [place], [place] [id number] Follow up Carson Gallagher MD [address] [facility] [address] [facility] [phone] Follow up Please call to set up appointment to follow up on your lung nodule and newly diagnosed COPD (chronic obstructive pulmonary disease) Flynn Mann DPM [address] [facility] [address] [facility] [address] Schedule an appointment as soon as possible for a visit Additional Information: Patient seen and examined day of discharge. For more information regarding patient's care, including complete radiology reports, please contact [facility] at Patient instructions, including activity, were given to the patient/family at discharge. Please seethe After Visit Summary in the medical record for details. Time spent on discharge: > 30 minutes Completed by: Muna Otto on 01/21/22, 2:32 PM documented in this [id number] Hospital Discharge instructions * Discharge Instr - AVS First Page* Muna Otto MD - 01/21/2022 11:26 AM EDT Dear Mr. Powell, You came to [facility] for left ankle pain, redness, and swelling [...] PCP to discuss further pancreatic workup - [facility] in [place], [place] to discuss your prosthetics. Thank you for letting us be a part of your care team, [facility]ist [facility] * Attachments The following attachments cannot be sent through Care Everywhere. * Cellulitis (Vietnamese) * Pulmonary Nodules: General Info (Vietnamese) documented in this [id number] Consult note* Leeanna Melgoza OT - 01/21/2022 [...] deficit. The patient's home setup is a esl instructional assistant, family / caregiver support is a esl instructional assistant for return to prior level of function. The patient's compliance is a esl instructional assistant to return to prior level of function. [...] Function Receives Help From: Family Level of [place] - Transfers/Ambulation/Mobility: Independent with functional transfers, Independent with household ambulation, Independent with community ambulation Level of [place] - ADLs: Independent Level of [place] - Homemaking: Independent Driving: Patient drives Vocational: [...] MIDFOOT AMPUTATION; Surgeon: Flynn Mann DPM; Location: [facility] OR; Service: Podiatry ANKLE SURGERY Left BYPASS PERONEAL FEMORAL Right 09/07/2018 Procedure: BYPASS PERONEAL FEMORAL, RIGHT SAPHENOUS VEIN HARVEST, COMPLETION ANGIOGRAM; Surgeon: Mohsen Sarabia MD; Location: [facility] NEURO OR; Service: Cardiovascular CARDIAC CATHETERIZATION Left 09/05/2018 Procedure: Angio Lower Extremity; Surgeon: Ben Hahn MD; Location: [facility] 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; Service: Cardiovascular CARDIAC SURGERY 2017 triple bypass EGD N/A 10/10/2018 Procedure: ESOPHAGOGASTRODUODENOSCOPY; Surgeon: Ben Jensen MD; Location: [facility] [place]; Service: Gastroenterology EYE SURGERY Right 2015 [...] completion of Occupational Therapy Plan of Care. [id number] Consult note* Leeanna Melgoza OT - 01/21/2022 [...] deficit. The patient's home setup is a esl instructional assistant, family / caregiver support is a esl instructional assistant for return to prior level of function. The patient's compliance is a esl instructional assistant to return to prior level of function. [...] Function Receives Help From: Family Level of [place] - Transfers/Ambulation/Mobility: Independent with functional transfers, Independent with household ambulation, Independent with community ambulation Level of [place] - ADLs: Independent Level of [place] - Homemaking: Independent Driving: Patient drives Vocational: [...] MIDFOOT AMPUTATION; Surgeon: Flynn Mann DPM; Location: [facility] OR; Service: Podiatry ANKLE SURGERY Left BYPASS PERONEAL FEMORAL Right 09/07/2018 Procedure: BYPASS PERONEAL FEMORAL, RIGHT SAPHENOUS VEIN HARVEST, COMPLETION ANGIOGRAM; Surgeon: Mohsen aSrabia MD; Location: [facility] NEURO OR; Service: Cardiovascular CARDIAC CATHETERIZATION Left 09/05/2018 Procedure: Angio Lower Extremity; Surgeon: Ben Hahn MD; Location: [facility] 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; Service: Cardiovascular CARDIAC SURGERY 2017 triple bypass EGD N/A 10/10/2018 Procedure: ESOPHAGOGASTRODUODENOSCOPY; Surgeon: Ben Jensen MD; Location: [facility]; Service: Gastroenterology EYE SURGERY Right 2015 [...] Contact guard assist (when in stand-scoot posture.) Oxyacetylene Welder - Standing Dynamic: BUE (wheelchair; and NWB on LLE.) Loss of Balance- Standing Dynamic: intermittent Bed Mobility Rolling: Modified independent Supine to Sit: Modified independent Sit to Supine: Modified independent Oxyacetylene Welder: bedrails, bed positioning mechanics Transfers Squat Pivot Transfers: Stand by assist, Contact guard assist Oxyacetylene Welder: wheelchair Additional Transfer Trial 2: Yes Squat Pivot Transfers Trial 2: Stand by assist, Contact guard assist Oxyacetylene Welder Trial 2: wheeled walker Gait/Locomotion Wheelchair Mobility: [...] baseline. Prior Level of Function Level of [place] - Transfers/Ambulation/Mobility: Independent with functional transfers, Independent with household ambulation Level of [place] - ADLs: Independent Subjective Impression - Prior [...] MIDFOOT AMPUTATION; Surgeon: Flynn Mann DPM; Location: [facility] OR; Service: Podiatry ANKLE SURGERY Left BYPASS PERONEAL FEMORAL Right 09/07/2018 Procedure: BYPASS PERONEAL FEMORAL, RIGHT SAPHENOUS VEIN HARVEST, COMPLETION ANGIOGRAM; Surgeon: Mohsen Sarabia MD; Location: [facility] NEURO OR; Service: Cardiovascular CARDIAC CATHETERIZATION Left 09/05/2018 Procedure: Angio Lower Extremity; Surgeon: Ben Hahn MD; Location: [facility] 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; Service: Cardiovascular CARDIAC SURGERY 2017 triple bypass EGD N/A 10/10/2018 Procedure: ESOPHAGOGASTRODUODENOSCOPY; Surgeon: Ben Jensen MD; Location: [facility]; Service: Gastroenterology EYE SURGERY Right 2015 [...] as an outpatient and follow up with [facility] closer to home. Possible biopsy iffindings persist. [...] Ngoc Banks MD Preliminary Medicine PGY1 Pager: [phone] Reason for Consultation: Suspicious Pulm nodule with [...] dust over the years while working in [employer]. Denies recent weight loss. Notes a few [...] MIDFOOT AMPUTATION; Surgeon: Flynn Mann DPM; Location: [facility] OR; Service: Podiatry ANKLE SURGERY Left BYPASS PERONEAL FEMORAL Right 09/07/2018 Procedure: BYPASS PERONEAL FEMORAL, RIGHT SAPHENOUS VEIN HARVEST, COMPLETION ANGIOGRAM; Surgeon: Mohsen Sarabia MD; Location: [facility] NEURO OR; Service: Cardiovascular CARDIAC CATHETERIZATION Left 09/05/2018 Procedure: Angio Lower Extremity; Surgeon: Ben Hahn MD; Location: [facility] 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; Service: Cardiovascular CARDIAC SURGERY 2017 triple bypass EGD N/A 10/10/2018 Procedure: ESOPHAGOGASTRODUODENOSCOPY; Surgeon: Ben Jensen MD; Location: [facility]; Service: Gastroenterology EYE SURGERY Right 2015 [...] data reviewed No results for input(s): PHART, AIN3BFG, PO2ART, [id number], RESPRATE, TIDALVOL, PEEP, K3ZGAOAP in the last 72 hours. Recent Labs [...] and recommend this to be done at [facility] with either Drs. Carson Gallagher or Angela Guerra. Please place referral to either their clinics at discharge. COPD: Suspected diagnosis with significant emphysematous changes noted on CT likely due to occupational exposures. -Recommend Spiriva and as needed albuterol moving forward as well as follow-up in the pulmonary medicine clinic close to home for formal PFTs. DVT Prophylaxis: Ngoc Mirza DO Pulmonary and Critical Care Medicine 5:26 PM 01/19/22 documented in this [id number] Consult note* Jay Tarango, PT - 01/20/2022 [...] Contact guard assist (when in stand-scoot posture.) Oxyacetylene Welder - Standing Dynamic: BUE (wheelchair; and NWB on LLE.) Loss of Balance- Standing Dynamic: intermittent Bed Mobility Rolling: Modified independent Supine to Sit: Modified independent Sit to Supine: Modified independent Oxyacetylene Welder: bedrails, bed positioning mechanics Transfers Squat Pivot Transfers: Stand by assist, Contact guard assist Oxyacetylene Welder: wheelchair Additional Transfer Trial 2: Yes Squat Pivot Transfers Trial 2: Stand by assist, Contact guard assist Oxyacetylene Welder Trial 2: wheeled walker Gait/Locomotion Wheelchair Mobility: [...] baseline. Prior Level of Function Level of [place] - Transfers/Ambulation/Mobility: Independent with functional transfers, Independent with household ambulation Level of [place] - ADLs: Independent Subjective Impression - Prior [...] MIDFOOT AMPUTATION; Surgeon: Flynn Mann DPM; Location: [facility] OR; Service: Podiatry ANKLE SURGERY Left BYPASS PERONEAL FEMORAL Right 09/07/2018 Procedure: BYPASS PERONEAL FEMORAL, RIGHT SAPHENOUS VEIN HARVEST, COMPLETION ANGIOGRAM; Surgeon: Mohsen Sarabia MD; Location: [facility] NEURO OR; Service: Cardiovascular CARDIAC CATHETERIZATION Left 09/05/2018 Procedure: Angio Lower Extremity; Surgeon: Ben Hahn MD; Location: [facility] 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; Service: Cardiovascular CARDIAC SURGERY 2017 triple bypass EGD N/A 10/10/2018 Procedure: ESOPHAGOGASTRODUODENOSCOPY; Surgeon: Ben Jensen MD; Location: [facility]; Service: Gastroenterology EYE SURGERY Right [...] hospital or completion of Physical Therapy Plan. [id number] Note* Sign Off Note - David Christy MD - 01/20/2022 12:38 PM EDT Pulmonary Medicine Sign-Off Medications: Bronchodilators: Recommend initiating Spiriva with PRN Albuterol on dsicharge Home Respiratory Equipment: N/A Follow-up: Imaging: Follow up PET/CT Scan KAJAL in outpatient setting. Please set up at [facility] with Dr Carson Cm or Angela Guerra with referral Pulmonary Function Testing: For diagnosis of COPD Patient with suspicious lung nodule and severe emphysema changes. Also uses Afrin, this should be limited to 2-3 days use at most at a time. Please call with questions David Christy M.D. Internal Medicine PGY-3 Pager: [phone] [facility] Work Phone: [phone] Miscellaneous Notes* Sign Off Note - David Christy MD - 01/20/2022 12:38 PM EDT Pulmonary Medicine Sign-Off Medications: Bronchodilators: Recommend initiating Spiriva with PRN Albuterol on dsicharge Home Respiratory Equipment: N/A Follow-up: Imaging: Follow up PET/CT Scan KAJAL in outpatient setting. Please set up at [facility] with Dr Carson Cm or Angela Guerra with referral Pulmonary Function Testing: For diagnosis of COPD Patient with suspicious lung nodule and severe emphysema changes. Also uses Afrin, this should be limited to 2-3 days use at most at a time. Please call with questions David Christy M.D. Internal Medicine PGY-3 Pager: [phone] * ED Procedure Note - Mikey Mcguire [...] and Critical Limb consultation. documented in this [id number] Consult note* Carson Banks MD - 01/19/2022 [...] calcified granulomas. -Solitary lung nodule malignancy risk ([place]) score: 17.6% -Recommend PET as an outpatient and follow up with [facility] closer to home. Possible biopsy iffindings persist. [...] Ngoc Banks MD Preliminary Medicine PGY1 Pager: [phone] Reason for Consultation: Suspicious Pulm nodule with [...] dust over the years while working in [employer]. Denies recent weight loss. Notes a few [...] MIDFOOT AMPUTATION; Surgeon: Flynn Mann DPM; Location: [facility] OR; Service: Podiatry ANKLE SURGERY Left BYPASS PERONEAL FEMORAL Right 09/07/2018 Procedure: BYPASS PERONEAL FEMORAL, RIGHT SAPHENOUS VEIN HARVEST, COMPLETION ANGIOGRAM; Surgeon: Mohsen Sarabia MD; Location: [facility] NEURO OR; Service: Cardiovascular CARDIAC CATHETERIZATION Left 09/05/2018 Procedure: Angio Lower Extremity; Surgeon: Ben Hahn MD; Location: [facility] 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; Service: Cardiovascular CARDIAC SURGERY 2017 triple bypass EGD N/A 10/10/2018 Procedure: ESOPHAGOGASTRODUODENOSCOPY; Surgeon: Ben Jensen MD; Location: [facility]; Service: Gastroenterology EYE SURGERY Right 2015 [...] sodium chloride (PF) 5 mL Intravenous Q8H [facility] [START ON 01/20/2022] vancomycin 1,750 mg Intravenous Q36H Data: Laboratory Data: [x] Pertinent lab data reviewed Radiology: [x] Images personally reviewed Microbiology: [x] Pertinent microbiology data reviewed No results for input(s): PHART, LQS3ZAE, PO2ART, A6EZCJCE, RESPRATE, TIDALVOL, PEEP, A1MISJDL in the last 72 hours. Recent Labs [...] and recommend this to be done at [facility] with either Drs. Carson Gallagher or Angela Guerra. Please place referral to either their clinics at discharge. COPD: Suspected diagnosis with significant emphysematous changes noted on CT likely due to occupational exposures. -Recommend Spiriva and as needed albuterol moving forward as well as follow-up in the pulmonary medicine clinic close to home for formal PFTs. DVT Prophylaxis: Ngoc Mirza DO Pulmonary and Critical Care Medicine 5:26 PM 01/19/22 [id number] Emergency department Note* Violetta Stuart RN - 01/19/2022 2:35 PM EDT Patient provided with warm blanket and coffee. Denies any further needs at this time, visitor at bedside. [id number] Emergency department Note* Violetta Stuart RN - [...] Med one to write orders for admission [phone]...checkout complete * Amy Ojeda PA-C - 01/18/2022 11:14 PM EDT Images from the original note were not included. ED PROVIDER NOTE [facility] EMERGENCY DEPARTMENT NAME: Tristin Powell AGE: 82 y.o. : 1940 VISIT DATE: 01/18/2022 CSN: [id number] PCP: Flash Lovelace MD Chief Complaint Patient [...] MIDFOOT AMPUTATION; Surgeon: Flynn Mann DPM; Location: [facility] OR; Service: Podiatry ANKLE SURGERY Left BYPASS PERONEAL FEMORAL Right 09/07/2018 Procedure: BYPASS PERONEAL FEMORAL, RIGHT SAPHENOUS VEIN HARVEST, COMPLETION ANGIOGRAM; Surgeon: Mohsen Sarabia MD; Location: [facility] NEURO OR; Service: Cardiovascular CARDIAC CATHETERIZATION Left 09/05/2018 Procedure: Angio Lower Extremity; Surgeon: Ben Hahn MD; Location: [facility] 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; Service: Cardiovascular CARDIAC SURGERY 2017 triple bypass EGD N/A 10/10/2018 Procedure: ESOPHAGOGASTRODUODENOSCOPY; Surgeon: Ben Jensen MD; Location: [facility]; Service: Gastroenterology EYE SURGERY Right [...] states he's nauseous, chills documented in this [id number] Emergency department Note* Violetta Stuart RN - 01/19/2022 1:15 PM EDT Patient provided with lunch tray. [id number] Emergency department Note* Maude Vallejo RN - 01/19/2022 10:13 AM EDT patient visited at this time. comfort needs addressed. updated on plan of care. MEAL TRAY DELIVERED AT THIS TIME [id number] History and physical note* Rodri Back DO - 01/18/2022 11:54 PM EDT Images from the original note were not included. [facility] History and Physical Note 01/19/22 Tristin Powell 1940 [id number] Assessment/Plan: Tristin Powell is a 82 y.o. male with a history of HTN, CAD, PVD who presented to [facility] 01/18/2022 with progressive left ankle pain, redness, swelling not improved with oral antibiotics. Admit XR non-acute, temp 100.7, CRP 63.5, WBC 6.76, ESR 18. LLE Cellulitis: Per chart, hx MRSA in 2019. Presented progressive severe left ankle pain, edema, warmth, tenderness x 3 days CSM CONSULTANT not improved with keflex/bactrim. Admit temp 100.7. [...] HTN, CAD, PVD who presented to [facility] 01/18/2022 with progressive left ankle [...] MIDFOOT AMPUTATION; Surgeon: Flynn Mann DPM; Location: [facility]; Service: Podiatry ANKLE SURGERY Left BYPASS PERONEAL FEMORAL Right 09/07/2018 Procedure: BYPASS PERONEAL FEMORAL, RIGHT SAPHENOUS VEIN HARVEST, COMPLETION ANGIOGRAM; Surgeon: Mohsen Sarabia MD; Location: [facility] NEURO OR; Service: Cardiovascular CARDIAC CATHETERIZATION Left 09/05/2018 Procedure: Angio Lower Extremity; Surgeon: Ben Hahn MD; Location: [facility] 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; Service: Cardiovascular CARDIAC SURGERY 2017 triple bypass EGD N/A 10/10/2018 Procedure: ESOPHAGOGASTRODUODENOSCOPY; Surgeon: Ben Jensen MD; Location: [facility]; Service: Gastroenterology EYE SURGERY Right 2015 [...] mg/dL -- 107* CALCIUM mg/dL -- 9.2 [id number] History and physical note* Rodri Back DO - 01/18/2022 11:54 PM EDT Images from the original note were not included. [facility] 01/19/22 Tristin Powell 1940 [id number] Assessment/Plan: Tristin Powell is a 82 y.o. male with a history of HTN, CAD, PVD who presented to [facility] 01/18/2022 with progressive left ankle pain, redness, swelling not improved with oral antibiotics. Admit XR non-acute, temp 100.7, CRP 63.5, WBC 6.76, ESR 18. LLE Cellulitis: Per chart, hx MRSA in 2018. Presented progressive severe left ankle pain, edema, warmth, tenderness x 3 days CSM CONSULTANT not improved with keflex/bactrim. Admit temp 100.7. [...] HTN, CAD, PVD who presented to [facility] 01/18/2022 with progressive left ankle [...] MIDFOOT AMPUTATION; Surgeon: Flynn Mann DPM; Location: [facility] OR; Service: Podiatry ANKLE SURGERY Left BYPASS PERONEAL FEMORAL Right 09/07/2018 Procedure: BYPASS PERONEAL FEMORAL, RIGHT SAPHENOUS VEIN HARVEST, COMPLETION ANGIOGRAM; Surgeon: Mohsen Sarabia MD; Location: [facility] NEURO OR; Service: Cardiovascular CARDIAC CATHETERIZATION Left 09/05/2018 Procedure: Angio Lower Extremity; Surgeon: Ben Hahn MD; Location: [facility] 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; Service: Cardiovascular CARDIAC SURGERY 2017 triple bypass EGD N/A 10/10/2018 Procedure: ESOPHAGOGASTRODUODENOSCOPY; Surgeon: Ben Jensen MD; Location: [facility]; Service: Gastroenterology EYE SURGERY Right 2015 [...] CALCIUM mg/dL -- 9.2 documented in this [id number] Emergency department Note* Richie Vallecillo - 01/18/2022 11:29 PM EDT Med one to write orders for admission [phone]...checkout complete [id number] Note* ED Procedure Note - Mikey Mcguire MD - 01/18/2022 11:27 PM EDTAssociated Order(s): ECG 12 Lead ECG 12 Lead Date/Time: 01/18/2022 11:27 PM Performed by: Mikey Mcguire MD Authorized by: Mikey Mcguire MD Interpreted by ED attending physician Rhythm: sinus rhythm BPM: 76 Ectopy: PVCs Conduction: conduction normal ST Segments: ST segments normal T Waves: T waves normal Clinical impression: non-specific ECG [facility] Work Phone: [phone] Physician Emergency department Note* Amy Ojeda PA-C - 01/18/2022 11:14 PM EDT Images from the original note were not included. ED PROVIDER NOTE [facility] EMERGENCY DEPARTMENT NAME: Tristin Powell AGE: 82 y.o. : 1940 VISIT DATE: 01/18/2022 [facility]: [id number] PCP: Flash Lovelace MD Chief Complaint Patient [...] MIDFOOT AMPUTATION; Surgeon: Flynn Mann DPM; Location: [facility] OR; Service: Podiatry ANKLE SURGERY Left BYPASS PERONEAL FEMORAL Right 09/07/2018 Procedure: BYPASS PERONEAL FEMORAL, RIGHT SAPHENOUS VEIN HARVEST, COMPLETION ANGIOGRAM; Surgeon: Mohsen Sarabia MD; Location: [facility] NEURO OR; Service: Cardiovascular CARDIAC CATHETERIZATION Left 09/05/2018 Procedure: Angio Lower Extremity; Surgeon: Ben Hahn MD; Location: [facility] 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; Service: Cardiovascular CARDIAC SURGERY 2017 triple bypass EGD N/A 10/10/2018 Procedure: ESOPHAGOGASTRODUODENOSCOPY; Surgeon: Ben Jensen MD; Location: [facility]; Service: Gastroenterology EYE SURGERY Right 2015 [...] Historical Med Amy Ojeda PA-C 01/19/22 0028 [facility] Work Phone: [phone] Note* ED Attestation Note - Mikey Mcguire [...] for IV antibiotics and Critical Limb consultation. [id number] Emergency department Triage note* Gregory Alvarado LPN - 01/18/2022 8:37 PM EDT Pt arrives to the ED with c/o redness and swelling to left amputated foot. Redness and swelling noted a couple days ago. Pt states he's nauseous, chills [id number] History of Present illness Narrative* Katie Anna RN - 01/18/2022 4:21 PM EDT Received progress note and images of left lower extremity dated 01-18-[address] Flash Webb. See scanned document in Media. documented in this [id number] History of Present illness Narrative* Светлана Briones [...] Date: 01/12/2022 9:08 AM Patient: Tristin Powell MR#: [id number] : 1940 Age: 82 y.o. Referring Physician: Self, Self Insurance: Payor: MEDICARE [id number] PPO / Plan: MEDICARE [employer] HMO PPO [...] 5. Date: 01/12/2022 9:08 AM Patient: Tristin Hortensia Powell Sr. MR#: [id number] : 1940 Age: 82 y.o. Referring Physician: Self, Self Insurance: Payor: MEDICARE [id number] PPO / Plan: MEDICARE [employer] PPO / Product Type: *No Product [...] has No Known Allergies. [facility] History of Present illness Narrative* Ileana [...] pain 10/08/2018 Bladder problem 10/08/2018 Bleeding disorder ([facility]) 10/08/2018 Cataract 10/08/2018 CHF (congestive heart failure) ([facility]) 10/08/2018 Cholelithiasis 10/08/2018 Chronic kidney disease (CKD) 10/08/2018 Chronic pain disorder 10/08/2018 Clostridium difficile infection 10/08/2018 Complication of anesthesia 10/08/2018 COPD (chronic obstructive pulmonary disease) ([facility]) 10/08/2018 Crohn's disease ([facility]) 10/08/2018 Deep vein thrombosis ([facility]) 10/08/2018 Dermatitis 10/08/2018 Diabetes mellitus type I ([facility]) 10/08/2018 Diabetes mellitus, type 2 ([facility]) 10/08/2018 Diverticulosis 10/08/2018 Emphysema of lung ([facility]) 10/08/2018 Fibromyalgia, primary 10/08/2018 Hard to intubate 10/08/2018 Headache 10/08/2018 HIV disease ([facility]) 10/08/2018 Infectious viral hepatitis 10/08/2018 MRSA (methicillin resistant Staphylococcus aureus) 10/08/2018 Neck pain 10/08/2018 Nephrolithiasis 10/08/2018 Osteoporosis 10/08/2018 Overactive bladder 10/08/2018 PAD (peripheral artery disease) ([facility]) 10/08/2018 Parkinson's disease ([facility]) 10/08/2018 Peripheral neuropathy 10/08/2018 Postoperative retention of urine 10/08/2018 Problem with Qureshi catheter ([facility]) 10/08/2018 Rheumatoid arthritis ([facility]) 10/08/2018 Seizures ([facility]) 10/08/2018 Sleep apnea, obstructive 10/08/2018 Stroke ([facility]) 10/08/2018 Thrombophlebitis 10/08/2018 TIA (transient ischemic attack) [...] Ileana Kang DO 12/28/2021 documented in this [id number] History of Present illness Narrative* Hill Marquez LPN - 11/24/2021 9:50 AM EDT Ortho Nurse - Established Patient Intake Room#: 2 4 month Right SHANNON D/A, about 10 days ago for no reason he started having radiating pain upto an 8, no pain when sitting, was doing fine before this Date: 11/24/2021 9:46 AM Patient: Tristin Powell Sr. MR#: [id number] : 1940 Age: 81 y.o. Referring Physician: Self, Self Insurance: Payor: MEDICARE [id number] PPO / Plan: MEDICARE [employer] HMO PPO [...] Surgeon: Isaias Vogt MD; Location: [facility] CARDIAC CATH/EP LAB PERIPHERAL STENT PLACEMENT N/A 08/09/2018 Laterality: N/A; Surgeon: Isaias Vogt MD; Location: [facility] CARDIAC CATH/EP LAB ATHERECTOMY PERIPHERAL N/A 08/09/2018 Laterality: N/A; Surgeon: Isaias Vogt MD; Location: [facility] CARDIAC CATH/EP LAB CORONARY STENT PLACEMENT 2007 [...] 9:46 AM Patient: Tristin Powell Sr. MR#: [id number] : 1940 Age: 81 y.o. Referring Physician: [...] GAL CARDIAC CATH/EP LAB CORONARY STENT PLACEMENT 2008 [...] has No Known Allergies. documented in this encounter[facility] + Plan note No data available for this section [facility] evaluation + Plan note Future Appointments Appointment Date:12/26/2023 01:00:00 PM Scheduled Provider:BRENNA MOSQUERA PA-C Location:[facility] Appointment Type:URO Office Visit Diagnostic Tests Pending * PSA Total 12/20/22 [facility] evaluation note* Diagnosis Bilateral carotid artery stenosis- Primary Occlusion and stenosis of carotid artery without mention of cerebral infarction PAD (peripheral artery disease) (HCC) Unspecified peripheral vascular disease [facility] Diagnosis PAD (peripheral artery disease) (HCC)- Primary Unspecified peripheral vascular disease [facility] Diagnosis Pain in prosthetic joint, subsequent encounter- Primary [facility] Diagnosis Actinic keratosis- Primary SK (seborrheic keratosis) Other seborrheic keratosis Inflamed seborrheic keratosis Skin tenderness Disturbance of skin sensation Xerosis cutis Other specified disease of sebaceous glands [facility] Diagnosis Hx of total hip arthroplasty, right- Primary [facility]* Diagnosis Cellulitis- Primary Cellulitis and abscess of unspecified site Left leg cellulitis 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) Elevated C-reactive protein (CRP) Pulmonary nodule Other diseases of lung, not elsewhere classified Essential hypertension Unspecified essential hypertension PAD (peripheral artery disease) (HCC) Unspecified peripheral vascular disease [facility] Diagnosis Chronic obstructive pulmonary disease, unspecified COPD type (HCC)- Primary Pulmonary nodule Other diseases of lung, not elsewhere classified [facility]* Diagnosis PAD (peripheral artery disease) (HCC)- Primary Unspecified peripheral vascular disease Pain of right lower extremity Hypertension, unspecified type [facility] Work Phone: Evaluation note* Diagnosis Bilateral carotid artery stenosis- Primary Occlusion and stenosis of carotid artery without mention of cerebral infarction [facility]* Diagnosis Hx of total hip arthroplasty, right- Primary [facility]* Diagnosis Chronic obstructive pulmonary disease, unspecified [...] peripheral vascular disease [facility]* Diagnosis PAD (peripheral artery disease) (HCC)- Primary Unspecified peripheral vascular disease [facility]* Diagnosis Critical lower limb ischemia (HCC)- Primary Unspecified circulatory system disorder [facility] Diagnosis Hx of total hip arthroplasty, right- Primary [facility] Diagnosis Phantom limb pain (CMS/HCC)- Primary [...] unspecified type- Primary documented in this [facility]* Diagnosis Phantom limb pain [...] spondylosis without myelopathy [facility] Diagnosis Ischemic foot- Primary PAD (peripheral artery disease) ([facility]) Unspecified peripheral vascular disease Critical lower limb ischemia (HCC) Unspecified circulatory system disorder Critical lower limb ischemia (HCC) Unspecified circulatory system disorder Coronary artery disease involving coronary bypass graft of [place] heart without angina pectoris Hypercholesteremia Pure hypercholesterolemia [...] left, initial encounter PAD (peripheral artery disease) ([facility]) Unspecified peripheral vascular disease PVD (peripheral vascular disease) ([facility])- Primary Unspecified peripheral vascular disease [facility]* Diagnosis Phantom limb pain (CMS/HCC)- [...] spondylosis without myelopathy documented in this encounter [facility] HealthcareEvaluation note* Diagnosis Community acquired pneumonia of left lung, unspecified part of lung- Primary COPD exacerbation (HCC) Obstructive chronic bronchitis with exacerbation documented in this encounter [employer] Phone: evaluation note* Diagnosis Community acquired pneumonia of left lung, unspecified part of lung- Primary COPD exacerbation (HCC) Obstructive chronic bronchitis with exacerbation documented in this encounter [employer] Phone: evaluation note* Diagnosis Phantom limb pain [...] Phantom limb (syndrome) documented in this encounter [facility] HealthcareEvaluation note* Diagnosis Medicare annual wellness visit, subsequent- Primary ACP (advance care planning) Other specified counseling Primary insomnia Persistent disorder of initiating or maintaining sleep Neuropathy Mononeuritis of unspecified site Other chronic pain Paresthesia of skin Phantom limb pain ([facility]) Phantom limb (syndrome) Polymyalgia rheumatica ([facility]) Polymyalgia rheumatica Mild persistent asthmatic bronchitis without complication ([facility]) Chronic bronchitis, unspecified chronic bronchitis type ([facility]) Dyspnea on exertion Other dyspnea and respiratory abnormality Orthopnea Snoring Other dyspnea and respiratory abnormality Solitary pulmonary nodule Abdominal aortic aneurysm (AAA) without rupture, unspecified part ([facility]/HCC) Aortic valve insufficiency, etiology of cardiac valve disease unspecified Atherosclerosis of [place] coronary artery of [place] heart without angina pectoris ([facility]) Benign essential hypertension ([facility]) Essential hypertension, benign Stenosis of right carotid artery Occlusion and stenosis of carotid artery without mention of cerebral infarction Chronic heart failure with preserved ejection fraction ([facility]) Chronic ischemic heart disease ([facility]) Unspecified chronic ischemic heart disease Mitral valve insufficiency, unspecified etiology Paroxysmal atrial fibrillation ([facility]/HCC) Atrial fibrillation Preinfarction syndrome ([facility]) Intermediate coronary syndrome PVD (peripheral vascular disease) with claudication ([facility]) Unspecified peripheral vascular disease Thoracic aortic aneurysm without rupture, unspecified part ([facility]) Heartburn 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 (CMS/[facility]) Impotence of organic origin Malignant neoplasm of prostate (CMS/[facility]) Malignant neoplasm of prostate Stage 3a chronic kidney disease (HCC) ([facility]) Arthritis Unspecified arthropathy, site unspecified Status post total replacement of right hip Claudication of right lower extremity ([facility]) Lumbosacral spondylosis without myelopathy Posterior tibial tendinitis [...] pollen 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CMS/[facility]) Atherosclerosis of [place] arteries of extremities with rest pain, unspecified extremity (CMS/[facility]) Pulmonary hypertension, unspecified (CMS/HCC) documented in this encounter [facility] HealthcareEvaluation note* Diagnosis Chest pain in adult- Primary Lumbosacral spondylosis 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) Seasonal allergic rhinitis due to pollen documented in this encounter [facility] HealthcareEvaluation note* Diagnosis Phantom limb pain [...] spondylosis without myelopathy documented in this encounter [facility] HealthcareEvaluation note* Diagnosis Phantom limb pain [...] spondylosis without myelopathy documented in this encounter [facility] HealthcareEvaluation note* Diagnosis Phantom limb pain [...] Chronic diastolic (congestive) heart failure Atherosclerosis of [place] arteries of extremities with rest pain, unspecified [...] Chronic diastolic (congestive) heart failure Atherosclerosis of [place] arteries of extremities with rest pain, unspecified [...] spondylosis without myelopathy documented in this encounter [facility] HealthcareEvaluation note* Diagnosis Phantom limb pain [...] Chronic diastolic (congestive) heart failure Atherosclerosis of [place] arteries of extremities with rest pain, unspecified [...] spondylosis without myelopathy documented in this encounter [facility] HealthcareEvaluation note* Diagnosis Phantom limb pain [...] Chronic diastolic (congestive) heart failure Atherosclerosis of [place] arteries of extremities with rest pain, unspecified [...] diastolic (congestive) heart failure (HCC) Atherosclerosis of [place] arteries of extremities with rest pain, unspecified [...] spondylosis without myelopathy [facility] Ischemic foot- Primary PAD (peripheral artery disease) (HCC) Unspecified peripheral vascular disease Critical lower limb ischemia (HCC) Unspecified circulatory system disorder Critical lower limb ischemia (HCC) Unspecified circulatory system disorder Coronary artery disease involving coronary bypass graft of [place] heart without angina pectoris Hypercholesteremia Pure hypercholesterolemia [...] peripheral vascular disease [facility] Diagnosis Ischemic foot- Primary PAD (peripheral artery disease) (HCC) Unspecified peripheral vascular disease Critical lower limb ischemia (HCC) Unspecified circulatory system disorder Critical lower limb ischemia (HCC) Unspecified circulatory system disorder Coronary artery disease involving coronary bypass graft of [place] heart without angina pectoris Hypercholesteremia Pure hypercholesterolemia [...] left, initial encounter PAD (peripheral artery disease) ([facility])- Primary Unspecified peripheral vascular disease Claudication Unspecified peripheral vascular disease Right leg pain Pain in soft tissues of limb Peripheral artery disease PAD (peripheral artery disease) ([facility]) Unspecified peripheral vascular disease Carotid stenosis, asymptomatic, [...] artery disease involving coronary bypass graft of [place] heart without angina pectoris Critical lower limb ischemia (HCC) Unspecified circulatory system disorder Critical lower limb ischemia (HCC) Unspecified circulatory system disorder Coronary artery disease involving coronary bypass graft of [place] heart without angina pectoris Carotid stenosis, asymptomatic, bilateral [facility] Diagnosis Phantom limb pain (HCC)- [...] Heartburn 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[facility]) Lumbosacral spondylosis without myelopathy Chronic obstructive pulmonary disease, unspecified COPD type ([facility]) Acute cystitis without hematuria- Primary Seasonal allergic rhinitis due to pollen 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 HealthcareEvaluation note* Diagnosis Ischemic foot- Primary [...] artery disease involving coronary bypass graft of [place] heart without angina pectoris Critical lower limb ischemia (HCC) Unspecified circulatory system disorder Critical lower limb ischemia (HCC) Unspecified circulatory system disorder Coronary artery disease involving coronary bypass graft of [place] heart without angina pectoris Carotid stenosis, asymptomatic, bilateral Critical lower limb ischemia (HCC)- Primary Unspecified circulatory system disorder [facility] Diagnosis Phantom limb pain (HCC)- Primary [...] diastolic (congestive) heart failure (HCC) Atherosclerosis of [place] arteries of extremities with rest pain, unspecified [...] diastolic (congestive) heart failure (HCC) Atherosclerosis of [place] arteries of extremities with rest pain, unspecified [...] unspecified type (HCC) documented in this encounter [facility] HealthcareEvaluation note* Diagnosis Phantom limb pain [...] diastolic (congestive) heart failure (HCC) Atherosclerosis of [place] arteries of extremities with rest pain, unspecified [...] artery disease involving coronary bypass graft of [place] heart without angina pectoris Critical lower limb ischemia (HCC) Unspecified circulatory system disorder Critical lower limb ischemia (HCC) Unspecified circulatory system disorder Coronary artery disease involving coronary bypass graft of [place] heart without angina pectoris Carotid stenosis, asymptomatic, bilateral Critical lower limb ischemia (HCC)- Primary Unspecified circulatory system disorder [facility] Diagnosis Phantom limb pain (HCC)- Primary [...] diastolic (congestive) heart failure (HCC) Atherosclerosis of [place] arteries of extremities with rest pain, unspecified [...] unspecified location- Primary documented in this encounter [facility] HealthcareEvaluation note* Diagnosis Phantom limb pain [...] diastolic (congestive) heart failure (HCC) Atherosclerosis of [place] arteries of extremities with rest pain, unspecified [...] Essential hypertension, benign documented in this encounter [facility] HealthcareEvaluation note* Diagnosis Phantom limb pain [...] diastolic (congestive) heart failure (HCC) Atherosclerosis of [place] arteries of extremities with rest pain, unspecified [...] Abnormal chest sounds [facility] Diagnosis Claudication Peripheral vascular disease, [...] acute or chronic [facility] Diagnosis Claudication Peripheral vascular disease, [...] acute or chronic [facility] Diagnosis Phantom limb pain (HCC)- Primary [...] diastolic (congestive) heart failure (HCC) Atherosclerosis of [place] arteries of extremities with rest pain, unspecified [...] right foot, unspecified type (HCC) Hemoptysis- Primary Chronic bronchitis, unspecified chronic bronchitis type (HCC) COPD exacerbation (HCC) Obstructive chronic bronchitis with exacerbation documented in this encounter [facility] HealthcareEvaluation note* Diagnosis Phantom limb pain [...] diastolic (congestive) heart failure (HCC) Atherosclerosis of [place] arteries of extremities with rest pain, unspecified [...] Osteomyelitis of right foot, unspecified type (HCC) Pneumonia due to infectious organism, unspecified laterality, unspecified part of lung- Primary documented in this encounter [facility] HealthcareEvaluation note* Diagnosis Phantom limb pain [...] diastolic (congestive) heart failure (HCC) Atherosclerosis of [place] arteries of extremities with rest pain, unspecified [...] Osteomyelitis of right foot, unspecified type (HCC) Pneumonia due to infectious organism, unspecified laterality, unspecified part of lung- Primary Abscess of lower lobe of left lung with pneumonia (HCC)- Primary documented in this encounter [facility] HealthcareEvaluation note* Diagnosis Phantom limb pain (HCC)- [...] diastolic (congestive) heart failure (HCC) Atherosclerosis of [place] arteries of extremities with rest pain, unspecified [...] Osteomyelitis of right foot, unspecified type (HCC) Pneumonia due to infectious organism, unspecified laterality, unspecified part of lung- Primary PVD (peripheral vascular disease) with claudication Unspecified peripheral vascular disease [facility] Diagnosis Ischemic foot- Primary [...] Peripheral artery disease PAD (peripheral artery disease) ([facility]) Unspecified peripheral vascular disease Carotid stenosis, asymptomatic, [...] artery disease involving coronary bypass graft of [place] heart without angina pectoris Critical lower limb ischemia (HCC) Unspecified circulatory system disorder Critical lower limb ischemia (HCC) Unspecified circulatory system disorder Coronary artery disease involving coronary bypass graft of [place] heart without angina pectoris Carotid stenosis, asymptomatic, bilateral PVD (peripheral vascular disease)- Primary Unspecified peripheral vascular disease [facility] Diagnosis Phantom limb pain (HCC)- Primary [...] diastolic (congestive) heart failure (HCC) Atherosclerosis of [place] arteries of extremities with rest pain, unspecified [...] Osteomyelitis of right foot, unspecified type (HCC) Pneumonia due to infectious organism, unspecified laterality, unspecified part of lung- Primary Routine general medical examination at health care facility- Primary Routine general medical examination at a health care facility Screening for lipid disorders Medicare annual wellness visit, subsequent 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HCC) Encounter for immunization Opioid dependence, uncomplicated (HCC) Acute eczematoid otitis externa of right ear documented in [facility] encounter [facility] Narrative - Reported* Type Description Date Medical History PAD Medical HistoryhypertensionMedical HistoryThis 82-year-old male has a long history of peripheral vascular occlusive disease but has never been seen by us in the past. In 2019 he presented with limb threatening ischemia of his left leg and was initially treated in [place]. When he was offered left above-knee amputation he got a second opinion in [place] and had a bypass on his left leg using contralateral right greater saphenous vein. Josh had a very high midfoot amputation which [...] and there is constant pain. This wakes himup at night. He does not have any [...] past. He had a right total hip replacement.Surgical Historyheart bypass surgery Surgical HistoryNeck SurgerySurgical Historycarpal tunnel releaseRIGHTSurgical Historycataract removalSurgical Historyprostate biopsySurgical Historyright hip replacementSurgical HistoryLEFT METARSAL AMPUTATIONHospitalization HistorySee Above Eons Other Hospital Discharge instructions No data available for this section [facility] Hospital Discharge instructions* Attachments The following attachments cannot be sent through Care Everywhere. * Pneumonia (Vietnamese) documented in [facility] Work Phone: Hospital Discharge instructions* Attachments The following attachments cannot be sent through Care Everywhere. * Pneumonia (Vietnamese) documented in [facility] Work Phone: Hospital Discharge instructions Additional Instructions [...] 24 hours. CALL [name at #] OR [facility] AT [phone]: -If excessive bleeding should occur from the [...] Metformin, PrandiMet, Riomet.] FOLLOW UP/OTHER INSTRUCTIONS [ ][facility] Work Phone: Hospital Discharge instructions Additional Instructions Full code Change dressing daily: *right great toe- allow vashe moistened gauze soak on wound bed for 5 min., wipe free loose debris, rinse with saline, apply Santyl to wound bed, top with 2x2s and secure with conforming [facility] Work Phone: Progress note No data available for this section [facility] reason for referral (narrative)No reason for referral information availableThe [facility] Work Phone: Reason for visit Narrative* Auth/CertSpecialty Diagnoses / ProceduresReferred By ContactReferred To Contact Diagnoses Bronchitis Hemopytsis Vivienne Gerard MD [address] [place] [address] Phone: tel: fax: [facility] [address] [place] [address] Referral IDStatusReasonStart DateExpiration DateVisits RequestedVisits [id number] [facility] Summary Purpose Family History No Family History Records Found Relationship Condition Age at Onset Recorded Date/T markell father Heart disease Unknown DeceasedUnknownfamily memberDeceasedUnknownNot SpecifiedDeceasedUnknownHeart diseaseUnknown Relationship Condition Age at Onset Recorded Date/T markell father Heart disease Unknown DeceasedUnknownfamily memberDeceasedUnknownmotherDeceasedUnknownHeart disease Unknown Advance Directives No Advanced Directives Records FoundLatest Code Status on File Code StatusDate ActivatedDate InactivatedCommentsFull Code09/05/2018 3:43 PMFull Code1 11:32 AM09/05/2018 3:43 PMFull Code09/04/2018 9:18 PM09/05/2018 11:32 AM Code StatusDate ActivatedDate InactivatedCommentsFull Code09/05/2018 3:43 PMFull Code09/05/2018 11:32 AM09/05/2018 3:43 PMFull Code09/04/2018 9:18 PM09/05/2018 11:32 AM Code StatusDate ActivatedDate InactivatedCommentsFull Code - Unverified10/04/2018 3:40 PMFull Code09/05/2018 3:43 PM2 3:00 PMCode StatusDate ActivatedDate InactivatedCommentsFull Code - Unverified10/08/2018 8:41 AMFull Code - Unverified 10/04/2018 3:40 PM2 8:41 AMFull Code09/05/2018 3:43 10/04/2018 3:00 PMCode StatusDate ActivatedDate InactivatedCommentsFull Code - Unverified10/08/2018 8:41 AMFull Code - Unverified10/04/2018 3:40 10/08/2018 8:41 AMTypeDate Recorded Patient RepresentativeExplanationAdvance Directives and Living Will03/18/2019 9:27 AMLW onlyPower of Attorney10/13/2018 9:03 PMRECEIVED 10/13/2018TypeDate RecordedPatient RepresentativeExplanationAdvance Directives and Living Will 03/18/2019 9:27 AMLW onlyPower of Attorney10/13/2018 9:03 PMRECEIVED 10/13/2018 TypeDate RecordedPatient RepresentativeExplanationAdvance Directives and Living Will10/21/2019 1:25 PMLW onlyPower of Attorney10/13/2018 9:03 PMRECEIVED 10/13/2018TypeDate RecordedPatient RepresentativeExplanationAdvance Directives and Living Will10/21/2019 1:25 PMLW onlyPower of Attorney10/13/2018 9:03 PM RECEIVED 10/13/2018TypeDate RecordedPatient RepresentativeExplanationAdvance Directives and Living Will03/13/2019 10:08 AMLW onlyPower of Attorney10/13/2018 9:03 PMRECEIVED 10/13/2018TypeDate RecordedPatient RepresentativeExplanation Advance Directives and Living Will03/13/2019 10:08 AMLW onlyPower of Satellite Television Installer 10/13/2018 9:03 PMRECEIVED 10/13/2018Code StatusDate ActivatedDate Inactivated CommentsFull Code07/15/2021 2:40 PMFull Code09/03/2018 11:29 AM07/15/2021 2:40 PM Full Code09/01/2011 7:48 AM09/04/2011 4:13 PMTypeDate RecordedPatient Hot Wire Glass Tube Cutter ExplanationPower of Attorney10/13/2018 9:03 PMRECEIVED 10/13/2018TypeDate RecordedPatient RepresentativeExplanationPower of Attorney10/13/2018 9:03 PM RECEIVED 10/13/2018Code StatusDate ActivatedDate InactivatedCommentsFull Code 01/19/2022 12:09 AM01/21/2022 5:56 PMFull Code - Unverified10/08/2018 8:41 AM 01/18/2022 8:37 PMDate ActivatedDate InactivatedComments01/19/2022 12:09 AM 01/21/2022 5:56 PMDate ActivatedDate InactivatedComments10/08/2018 8:41 AM 01/18/2022 8:37 PMDate ActivatedDate InactivatedComments10/04/2018 3:40 PM2 8:41 AMDate ActivatedDate InactivatedComments09/05/2018 3:43 PM2 3:00 PM Date ActivatedDate InactivatedComments09/05/2018 11:32 AM09/05/2018 3:43 PMDate ActivatedDate InactivatedComments04/15/2022 12:22 AM04/15/2022 10:55 PMDate ActivatedDate InactivatedComments01/19/2022 12:09 AM01/21/2022 5:56 PM Advance Directive Response Recorded Date/ Time Advance Directives No April 25, 2017 12:36pm Date ActivatedDate InactivatedComments04/15/2022 12:22 AM04/15/2022 10:55 PMDate ActivatedDate InactivatedComments01/19/2022 12:09 AM01/21/2022 5:56 PMDate ActivatedDate InactivatedComments10/08/2018 8:41 AM01/18/2022 8:37 PMDate ActivatedDate InactivatedComments10/04/2018 3:40 PM2 8:41 AMDate Activated Date InactivatedComments09/05/2018 3:43 PM2 3:00 PMCode StatusDate ActivatedDate InactivatedCommentsFull Code07/15/2021 2:40 PMCode StatusDate ActivatedDate InactivatedCommentsFull Code09/03/2018 11:29 AM07/15/2021 2:40 PM Full Code09/01/2011 7:48 AM09/04/2011 4:13 PMCode StatusDate ActivatedDate InactivatedCommentsFull Code - Unverified04/15/2022 12:22 AM04/15/2022 10:55 PM Code StatusDate ActivatedDate InactivatedCommentsFull Code01/19/2022 12:09 AM 01/21/2022 5:56 PMFull Code - Unverified10/08/2018 8:41 AM01/18/2022 8:37 PMFull Code - Unverified10/04/2018 3:40 PM2 8:41 AMFull Code09/05/2018 3:43 PM 10/04/2018 3:00 PMCode StatusDate ActivatedDate InactivatedCommentsFull Code 11/03/2022 10:28 PM11/08/2022 4:33 PMCode StatusDate ActivatedDate Inactivated CommentsFull Code - Unverified04/15/2022 12:22 AM04/15/2022 10:55 PMFull Code 01/19/2022 12:09 AM01/21/2022 5:56 PMFull Code - Unverified10/08/2018 8:41 AM 01/18/2022 8:37 PMFull Code - Unverified10/04/2018 3:40 PM2 8:41 AMCode StatusDate ActivatedDate InactivatedCommentsFull Code11/03/2022 10:28 PM11/08/2022 4:33 PMCode StatusDate ActivatedDate InactivatedCommentsFull Code - Unverified 04/15/2022 12:22 AM04/15/2022 10:55 PMFull Code01/19/2022 12:09 AM01/21/2022 5:56 PM Full Code - Unverified10/08/2018 8:41 AM01/18/2022 8:37 PMFull Code - Unverified 10/04/2018 3:40 10/08/2018 8:41 AM Advance Directive Response Recorded Date/ Time Advance Directives No April 25, 2017 11:36am Date ActivatedDate InactivatedComments11/03/2022 10:28 PM11/08/2022 4:33 PMDate ActivatedDate InactivatedComments04/15/2022 12:22 AM04/15/2022 10:55 PMDate ActivatedDate InactivatedComments01/19/2022 12:09 AM01/21/2022 5:56 PMDate ActivatedDate InactivatedComments10/08/2018 8:41 AM01/18/2022 8:37 PMDate ActivatedDate InactivatedComments10/04/2018 3:40 10/08/2018 8:41 AMDate Activated Date InactivatedComments11/03/2022 10:28 PM11/08/2022 4:33 PMDate ActivatedDate InactivatedComments04/15/2022 12:22 AM04/15/2022 10:55 PMDate ActivatedDate InactivatedComments01/19/2022 12:09 AM01/21/2022 5:56 PMDate ActivatedDate InactivatedComments10/08/2018 8:41 AM01/18/2022 8:37 PMDate ActivatedDate InactivatedComments10/04/2018 3:40 10/08/2018 8:41 AM Advance Directive Response Recorded Date/ Time Advance Directives No July 29, 2024 12:45pm Date ActivatedDate InactivatedComments03/14/2025 2:54 PMDate ActivatedDate InactivatedComments11/03/2022 10:28 PM11/08/2022 4:33 PMDate ActivatedDate InactivatedComments04/15/2022 12:22 AM04/15/2022 10:55 PMDate ActivatedDate InactivatedComments01/19/2022 12:09 AM01/21/2022 5:56 PMDate ActivatedDate InactivatedComments10/08/2018 8:41 AM01/18/2022 8:37 PMDate ActivatedDate InactivatedComments03/14/2025 5:44 PMDate ActivatedDate InactivatedComments 03/14/2025 2:54 PM03/14/2025 5:44 PMDate ActivatedDate InactivatedComments11/03/2022 10:28 PM11/08/2022 4:33 PMDate ActivatedDate InactivatedComments04/15/2022 12:22 AM04/15/2022 10:55 PMDate ActivatedDate InactivatedComments01/19/2022 12:09 AM 01/21/2022 5:56 PMDate ActivatedDate InactivatedComments03/14/2025 5:44 PM 03/21/2025 8:44 PMDate ActivatedDate InactivatedComments03/14/2025 2:54 PM 03/14/2025 5:44 PMDate ActivatedDate InactivatedComments11/03/2022 10:28 PM 11/08/2022 4:33 PMDate ActivatedDate InactivatedComments04/15/2022 12:22 AM 04/15/2022 10:55 PMDate ActivatedDate InactivatedComments01/19/2022 12:09 AM 01/21/2022 5:56 PMDate ActivatedDate InactivatedComments03/14/2025 5:44 PM 03/21/2025 8:44 PMTypeDate RecordedPatient RepresentativeExplanationHealthBeverly Hospital10/08/2018Date ActivatedDate InactivatedComments05/09/2025 4:40 AMDate ActivatedDate BxnsjbgxpatTozlmoqf29/18/2021 2:40 PM05/09/2025 4:40 AMDate ActivatedDate InactivatedComments09/03/2018 11:29 AM07/15/2021 2:40 PMDate ActivatedDate InactivatedComments09/01/2011 7:48 AM09/04/2011 4:13 PMName RelationshipHealthcare Agent RelationshipCommunicationJudy Ann Bryan Health Care Agent* NameRelationshipHealthcare Agent RelationshipCommunicationJudy Ann Bryan Health Care Agent* Reason for Referral StatusReasonSpecialtyDiagnoses / ProceduresReferred By ContactReferred To [facility] Diagnoses Ischemic foot Critical lower limb ischemia Rojelio Woody MD [address] [facility] [address] [place] [address] StatusReasonSpecialtyDiagnoses / ProceduresReferred By ContactReferred To ContactPending ReviewCardiology Diagnoses 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) S/P bypass graft of extremity Procedures US Doppler ankle/brachial index Segmental doppler lower extremity arterial Mohsen Sarabia MD [address] [facility] [address] [place] [address] StatusReasonSpecialtyDiagnoses / ProceduresReferred By ContactReferred To ContactPending ReviewCardiology Diagnoses Bilateral carotid artery stenosis Procedures Carotid Duplex Mohsen Sarabia MD [facility] [address] [place] [address] StatusReasonSpecialtyDiagnoses / ProceduresReferred By ContactReferred To ContactPending ReviewCardiology Diagnoses Atherosclerosis of wy[place] arteries of the extremities with ulceration (HCC) S/P bypass graft of extremity Procedures Ultrasound ankle / brachial indices extremity complete Mohsen Sarabia MD [address] [facility] [address] [place] [id number] StatusReasonSpecialtyDiagnoses / ProceduresReferred By ContactReferred To ContactClosedRadiology Diagnoses S/P bypass graft of extremity PAD (peripheral artery disease) (HCC) Atherosclerosis of wy[place] arteries of the extremities with ulceration (HCC) Procedures CT Angiogram Abdominal Aorta With Lower Extremity Mohsen Sarabia MD [address] [place] [address] [address] [place] [address] StatusReasonSpecialtyDiagnoses / ProceduresReferred By ContactReferred To ContactClosedCardiology Diagnoses Bilateral carotid artery stenosis Procedures Carotid Duplex Mohsen Sarabia MD [address] [place] [address] [address] [place] [address] StatusReasonSpecialtyDiagnoses / ProceduresReferred By ContactReferred To ContactClosedCardiology Diagnoses Atherosclerosis of [place] arteries of the extremities with ulceration (HCC) Procedures Ultrasound ankle / brachial indices extremity complete Mohsen Sarabia MD [address] [place] [address] StatusReasonSpecialtyDiagnoses / ProceduresReferred By ContactReferred To ContactPending ReviewCardiology Diagnoses Atherosclerosis of [place] artery of left lower extremity with rest pain (HCC) S/P bypass graft of extremity Procedures Ultrasound duplex arterial leg left Mohsen Sarabia MD [address] [place] [address] StatusReasonSpecialtyDiagnoses / ProceduresReferred By ContactReferred To ContactAuthorizedCardiology Diagnoses Bilateral carotid artery stenosis Procedures Carotid Duplex Mohsen Sarabia MD [address] [place] [address] StatusReasonSpecialtyDiagnoses / ProceduresReferred By ContactReferred To ContactAuthorizedCardiology Diagnoses PAD (peripheral artery disease) (HCC) Procedures Ultrasound ankle / brachial indices extremity complete Mohsen Sarabia MD [address] [place] [address] [address] [place] [address] StatusReasonSpecialtyDiagnoses / ProceduresReferred By ContactReferred To ContactAuthorizedCardiology Diagnoses PAD (peripheral artery disease) ([facility]) Procedures Ultrasound duplex arterial leg left Mohsen Sarabia MD [address] [place] [address] SpecialtyDiagnoses / ProceduresReferred By ContactReferred To ContactPhysical Therapy Diagnoses Pain in prosthetic joint, subsequent encounter Dashawn Silvestre MD [address] [place], [place] [phone] [facility] [place] [address] Referral IDStatusReasonStart DateExpiration DateVisits RequestedVisits [id number] Request/[id number] / Procedures Referred By ContactReferred To Contact Diagnoses Pain in prosthetic joint, subsequent encounter Procedures XR HIP WITH PELVIS RIGHT Dashawn Silvestre MD [address] [place], [place] [phone] Referral IDStatusReasonStart DateExpiration DateVisits RequestedVisits [id number] Request/[id number] / Procedures Referred By ContactReferred To Contact Diagnoses Hx of total hip arthroplasty, right Procedures XR HIP WITH PELVIS RIGHT Dashawn Silvestre MD [address] [place], [place] [phone] Referral IDStatusReasonStart DateExpiration DateVisits RequestedVisits [id number] Request/[id number] / Procedures Referred By ContactReferred To ContactPulmonary Disease / Pulmonology Diagnoses Pulmonary nodule Muna Otto MD [address] [facility] [address] [place] [address] Carson Gallagher MD [address] [place] [phone] Referral IDStatusReasonStart DateExpiration DateVisits RequestedVisits [id number] Review Specialty Services Required/Patient's Best Interest [id number] / ProceduresReferred By ContactReferred To ContactRadiology Diagnoses Pulmonary nodule Procedures CT Chest Without Contrast Angela Guerra MD [address] [facility] [place] [address] Referral IDStatusReasonStart DateExpiration DateVisits RequestedVisits [id number] Request/[id number] / Procedures Referred By ContactReferred To ContactCardiology Diagnoses Bilateral carotid artery stenosis Procedures Carotid Duplex Mohsen Sarabia MD [address] [facility] [address] [place] [phone] Referral IDStatusReasonStart DateExpiration DateVisits RequestedVisits [id number]/28/20229/28/504958ClcjtxzguJzxrdhnjh / Procedures Referred By ContactReferred To Contact Diagnoses Hx of total hip arthroplasty, right Procedures XR HIP WITH PELVIS RIGHT Scar Ortega APRN-TECHNOLOGY SERVICES MANAGER [address] [place] [phone] Referral IDStatusReasonStart DateExpiration DateVisits RequestedVisits [id number] Zmcshys12/[id number] / Procedures Referred By ContactReferred To ContactRadiology Diagnoses Community acquired pneumonia of left lower lobe of lung Procedures CT Chest Without Contrast Jose Escalona, KAMARI [address] [place] [address] Referral IDStatusReasonStart DateExpiration DateVisits RequestedVisits [id number] Request/[id number] / Procedures Referred By ContactReferred To ContactCardiology Diagnoses PAD (peripheral artery disease) (HCC) Procedures US Duplex Bypass Graft Left LE Mohsen Sarabia MD [address] [place] [address] Referral IDStatusReasonStart DateExpiration DateVisits RequestedVisits [id number]/19/20239/949945IsfgsamnkKuevhnikm / Procedures Referred By ContactReferred To ContactCardiology Diagnoses PAD (peripheral artery disease) (HCC) Procedures Ultrasound ankle / brachial indices extremity complete Mohsen Sarabia MD [address] [place] [address] Referral IDStatusReasonStart DateExpiration DateVisits RequestedVisits [id number]/19/20239/897446Vfelvhsv IDStatusReasonStart DateExpiration DateVisits RequestedVisits [id number] Cccnosu44/5/[id number] / ProceduresReferred By ContactReferred To Contact Diagnoses Seasonal allergic rhinitis due to pollen Zoë King PA [address] [address] Referral IDStatusReasonStart DateExpiration DateVisits RequestedVisits [id number] Review/ Hospital Course Note CLINICAL SUMMARY Please take this summary document to your follow up appointments. [facility] 11/29/19 11:09 [address] [place]. [address] PATIENT INFORMATION Name: TRISTIN POWELL Address: [address] [address] Age: 79 Years Phone: [phone] : 1940 12:00 MRN: [id number] Sex: Male Race: White Ethnicity: Not Hispan/Lat Admitted From: Clinic or [facility] Medical Service: Orthopedic Surgery Nurse Unit/Bed: (CO) 2N 0208-01 Admit Date: 11/28/2019 05:01 PCP: Flash Lovelace MD PHYSICIANS INVOLVED WITH CARE Attending Physicians: Ramana Cason MD - Orthopaedic Surg Admitting Physician: Ramana Cason MD - Orthopaedic Surg Primary Care Physician:Flash Lovelace MD,[facility], - Consults: IWONA [...] PRN * Discharge Instr - IP PHARMACY* yLdia Davis CPhT - 09/04/2018 9:16 PM EST [...] your doctor if you can take an kery-usu-rogitgw medicine. If you think your pain medicine [...] Log into your personal health record on [email or web address] and enter H742 in the Education box to learn more about Femoral-Tibial Bypass Surgery: What to Expect at Home. Current as of: March 18, 2018 Content Version: 11.9 4481-1496 pbsi. Care instructions adapted under license by your healthcare professional. If you have questions about a medical condition or this instruction, always ask your healthcare professional. [employer]bsi disclaims any warranty or liability for your use of this information. * Attachments The following attachments cannot be sent through Care Everywhere. * Angiogram: General: Post-op (Vietnamese) in this encounter* Discharge Instr - Other Orders* Kristi Grossman RN - 10/12/2018 6:09 PM EST Printed MAR sent to facility to show last admin times for lovenox and percocet. * Discharge Instr - Care Coordination* Rubi Dominguez LSW - 10/05/2018 6:46 AM EST [facility] P: [phone] F: [phone] * Additional Instructions* Gilbert Guerra DPM - [...] through Care Everywhere. * Foot: Amputation: Post-op (Vietnamese) in this encounter History of Present Illness * Esau Alejandro MD - 09/13/2018 9:03 AM EST VASCULAR SURGERY PROGRESS NOTE 09/13/18 Patient Name: Tristin Powell : 1940 MR #: [id number] Admit Date: 1070905 Assessment and Plan: Tristin Powell is a 78 y.o. male with a PMH of PVD s/p LLE angio with stent placement 08/09, prostatecancer, PVD, CAD, HTN and a PSH of L ankle ORIF and thriple CABG in october 2016 with L saphenous vein harvested who presented to [facility] 09/04/2018 as a transfer from [place] for second opinion regarding left lower extremity [...] today - Discussed with Dr. Sarabia Subjective NAEO. Having persistent foot pain Physical Examination: Vital [...] Final Result Stable chest. No acute disease. [facility] Workstation ID: [id number] Saphenous vein mapping, limited Final Result Cardiac Catheterization Final Result Ultrasound duplex arterial leg left Final Result XR Comparison Import Final Result Us Doppler Ankle/brachial Index Result Date: 09/10/2018 Non-Invasive Vascular Patient: SHERRY Bazan [facility] Rec#: [id number] (Age): 1940(78y) Study Date: 09/10/2018 Room#: 8506 Type: Inpatient Sex: M Reading: RICO TURK Reading: Ben Hahn MD, RPVI Referring: Esau Alejandro her: Andre Madrid RDCS/RVT Procedure Info: 80455 Study Quality: Lower Arterial Doppler: adequate __ [...] Esau Alejandro MD General Surgery PGY-1 Pager [phone] *After 5pm, or on weekends, page [phone]* * Rojelio Woody MD - 09/13/2018 8:52 AM EST [facility]2018 Tristin Powell 1940 [id number] Assessment/Plan: Tristin Powell is a 78 y.o. male with a history of PVD s/p LLE angio with stent placement 08/09, prostate cancer, PVD, CAD, HTN who presented to [facility] 09/04/2018 as a transfer from [place] for second opinion regarding left lower extremity pain and discoloration that was present two days prior to admit there on 08/30/18. On admit his exam was notable for cool mottled left foot. He was admitted for further work up. 1. Critical LLE Ischemia: Underwent LLE Popliteal stent 08/09/18 in [place], discharged on ASA and xarelto. Returned with [...] 09/11/18 0738 INR 1.2* 1.2* 1.2* * Vinicio, Jagruti, CSM CONSULTANT - 09/12/2018 1:57 PM EST Physical Therapy [...] Stand Pivot Transfers: Mod, Two person assist Oxyacetylene Welder: Wheeled walker, 2 people, Gait belt Skilled [...] to facilitate increased strength and progression to [facility] independence of fuctional activity. 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) Comments: planning to provide 20/03 assist from 7 kids For complete objective [...] 09/12/2018 1:41 PM EST Progress Note: [facility] PAIN SERVICE Date: 09/12/2018 Patient [...] -Please call with questions -Presented to [facility] 09/04/2018 as a transfer from [place] for second opinion regarding left lower extremity [...] on hospital day 8 as transfer from [place] for second opinion for LLE pain and [...] artery disease involving coronary bypass graft of [place] heart without angina pectoris ARTERIOSCLEROSIS OF CORONARY [...] SADIA heparin (porcine) 5,000 Units Subcutaneous Q8H [facility] metoprolol succinate 50 mg Oral Daily [...] Units 09/12/18 1108 09/11/18 2331 09/11/18 0738 09/10/18 2007 09/10/18 0610 09/09/18 [...] No Discharge Readiness Expected Discharge Date: 09/13/18 [facility] Disposition D/C Disposition: Home Health Care Services Related to Current Admission?: Yes [facility]/Destination[facility] Care Needs : Home health care Met with pt's dtr to discuss dschg plan. They wish to have referral sent to [facility]. Sent order for HHCfor RN, PT, OT. Sent referral to [facility]. Notified [facility] of referral. Updated AVS. * Rojelio Woody MD - 09/12/2018 11:37 AM EST [facility] Inpatient Progress Note 09/12/2018 Tristin Powell 1940 [id number] Assessment/Plan: Tristin Powell is a 78 y.o. male with a history of PVD s/p LLE angio with stent placement 08/09, prostate cancer, PVD, CAD, HTN who presented to [facility] 09/04/2018 as a transfer from [place] for second opinion regarding left lower extremity pain and discoloration that was present two days prior to admit there on 08/30/18. On admit his exam was notable for cool mottled left foot. He was admitted for further work up. 1. Critical LLE Ischemia: Underwent LLE Popliteal stent 08/09/18 in [place], discharged on ASA and xarelto. Returned with [...] Estimated Energy Needs Total Energy Estimated Needs: 8862-1052 kcal Method for Estimating Needs: MSJ + 20% Total Protein Estimated Needs: 88-106 g Method for Estimating Needs: 1-1.2 g/kg IBW (BMI 24.9) * Esau Alejandro MD - 09/12/2018 9:17 AM EST VASCULAR SURGERY PROGRESS NOTE 09/12/18 Patient Name: Tristin Powell : 1940 MR #: [id number] Admit Date: 1070905 Assessment and Plan: Tristin Powell is a 78 y.o. male with a PMH of PVD s/p LLE angio with stent placement 08/09, prostatecancer, PVD, CAD, HTN and a PSH of L ankle ORIF and thriple CABG in october 2016 with L saphenous vein harvested who presented to [facility] 09/04/2018 as a transfer from [place] for second opinion regarding left lower extremity [...] Final Result Stable chest. No acute disease. [facility] Workstation ID: [id number] Saphenous vein mapping, limited Final Result Cardiac Catheterization Final Result Ultrasound duplex arterial leg left Final Result XR Comparison Import Final Result Us Doppler Ankle/brachial Index Result Date: 09/10/2018 Non-Invasive Vascular Patient: SHERRY Bazan [facility] Rec#: [id number] (Age): 1940(78y) Study Date: 09/10/2018 Room#: 8506 Type: Inpatient Sex: M Reading: RICO FARFANC Reading: Ben Hahn MD, RPVI Referring: Esau Alejandro her: JuliusAndre la RDCS/RVT Procedure Info: [id number] Study Quality: Lower Arterial Doppler: adequate __ [...] Esau Alejandro MD General Surgery PGY-1 Pager [phone] *After 5pm, or on weekends, page [phone]* * Maranda Meléndez, TECHNOLOGY SERVICES MANAGER - 09/11/2018 3:45 PM EST Progress Note: [facility] PAIN SERVICE Date: 09/11/2018 Patient [...] -Please call with questions -Presented to [facility] 09/04/2018 as a transfer from [place] for second opinion regarding left lower extremity [...] on hospital day 7 as transfer from [place] for second opinion for LLE pain and [...] artery disease involving coronary bypass graft of [place] heart without angina pectoris ARTERIOSCLEROSIS OF CORONARY [...] SADIA heparin (porcine) 5,000 Units Subcutaneous Q8H [facility] metoprolol succinate 50 mg Oral Daily [START [...] Woody MD - 09/11/2018 1:53 PM EST [facility] Inpatient Progress Note 09/11/2018 Tristin Powell 1940 [id number] Assessment/Plan: Tristin Powell is a 78 y.o. male with a history of PVD s/p LLE angio with stent placement 08/09, prostate cancer, PVD, CAD, HTN who presented to [facility] 09/04/2018 as a transfer from [place] for second opinion regarding left lower extremity pain and discoloration that was present two days prior to admit there on 08/30/18. On admit his exam was notable for cool mottled left foot. He was admitted for further work up. Labs prior to transfer notable for Cr 0.7. 1. Critical LLE Ischemia: s/p LLE angiogram 08/09/18 with popliteal balooning and stent in [place], Discharged on ASA and xarelto. Returned to the [facility] with worsening pain and discoloration of his [...] Name: Tristin Powell : 1940 MR #: [id number] Admit Date: 1070905 Assessment and Plan: Tristin Powell is a 78 y.o. male with a PMH of PVD s/p LLE angio with stent placement 08/09, prostatecancer, PVD, CAD, HTN and a PSH of L ankle ORIF and thriple CABG in october 2016 with L saphenous vein harvested who presented to [facility] 09/04/2018 as a transfer from [place] for second opinion regarding left lower extremity pain and discoloration Chronic LLE ischemia S/p peroneal femoral bypass 09/07/18 - Regular diet - Rooke boot LLE - ET following, adaptik and gauze EOD - Podiatry following, betadine paint while waitin for demarcation. - Pain and N control - PT/OT, recommending SNF - Consult placed to case management - Discussed with Dr. Cornell DAVID. No [...] Final Result Stable chest. No acute disease. [facility] Workstation ID: [id number] Saphenous vein mapping, limited Final Result Cardiac Catheterization Final Result Ultrasound duplex arterial leg left Final Result XR Comparison Import Final Result Us Doppler Ankle/brachial Index Result Date: 09/10/2018 Non-Invasive Vascular Patient: SHERRY Bazan [facility] Rec#: [id number] (Age): 1940(78y) Study Date: 09/10/2018 Room#: 8506 Type: Inpatient Sex: M Reading: RICO TURK Reading: Ben Hahn MD, RPVI Referring: Esau Alejandro her: Andre Madrid RDCS/INOCENCIO Procedure Info: [id number] Study Quality: Lower Arterial Doppler: adequate __ [...] Esau Alejandro MD General Surgery PGY-1 Pager [phone] *After 5pm, or on weekends, page [phone]* Associated attestation - Mohsen Sarabia MD - 09/11/2018 5:05 PM EST Patient seen and examined. I have personally reviewed all pertinent labs, radiological studies and records. I have personally examined the patient and agree with resident/MINIATURE MODEL MAKER/PA assessment and plan. * Flynn Mann, SHIRLEY - 09/11/2018 8:09 AM EST Patient Name: Tristin Powell MR #: [id number] : 1940 Physicians: Flash Lovelace MD (Family); [...] PLT 246 09/10/2018 No results found for: EBVR6PTw results found for: SEDRATE No results found [...] artery disease involving coronary bypass graft of [place] heart without angina pectoris ARTERIOSCLEROSIS OF CORONARY [...] [facility] with Dr. Mann at [phone] [facility]. Case [...] 09/10/2018 12:04 PM EST Progress Note: [facility] PAIN SERVICE Date: 09/10/2018 Patient [...] -Please call with questions -Presented to [facility] 09/04/2018 as a transfer from [place] for second opinion regarding left lower extremity [...] on hospital day 6 as transfer from [place] for second opinion for LLE pain and [...] artery disease involving coronary bypass graft of [place] heart without angina pectoris ARTERIOSCLEROSIS OF CORONARY [...] Name: Tristin Powell : 1940 MR #: [id number] Admit Date: 1070905 Assessment and Plan: Tristin Powell is a 78 y.o. male with a PMH of PVD s/p LLE angio with stent placement 08/09, prostatecancer, PVD, CAD, HTN and a PSH of L ankle ORIF and thriple CABG in october 2016 with L saphenous vein harvested who presented to [facility] 09/04/2018 as a transfer from [place] for second opinion regarding left lower extremity [...] Final Result Stable chest. No acute disease. [facility] Workstation ID: [id number] Saphenous vein mapping, [...] Esau Alejandro MD General Surgery PGY-1 Pager [phone] *After 5pm, or on weekends, page [phone]* * Vianca Franco DO - 09/10/2018 7:57 AM EST [facility] 09/10[facility]2018 Tristin Powell 1940 [id number] Assessment/Plan: Tristin Powell is a 78 y.o. male with a history of PVD s/p LLE angio with stent placement 08/09, prostate cancer, PVD, CAD, HTN who presented to [facility] 09/04/2018 as a transfer from [place] for second opinion regarding left lower extremity pain and discoloration that was present two days prior to admit there on 08/30/18. On admit his exam was notable for cool mottled left foot. He was admitted for further work up. Labs prior to transfer notable for Cr 0.7. 1. Critical LLE Ischemia: s/p LLE angiogram 08/09/18 with popliteal balooning and stent in [place], Discharged on ASA and xarelto. Returned to the [facility] with worsening pain and discoloration of his [...] Franco DO - 09/09/2018 9:18 AM EST [facility] Inpatient Progress Note 09/09/2018 Tristin Powell 1940 [id number] Assessment/Plan: Tristin Powell is a 78 y.o. male with a history of PVD s/p LLE angio with stent placement 08/09, prostate cancer, PVD, CAD, HTN who presented to [facility] 09/04/2018 as a transfer from [place] for second opinion regarding left lower extremity pain and discoloration that was present two days prior to admit there on 08/30/18. On admit his exam was notable for cool mottled left foot. He was admitted for further work up. Labs prior to transfer notable for Cr 0.7. 1. Critical LLE Ischemia: s/p LLE angiogram 08/09/18 with popliteal balooning and stent in [place], Discharged on ASA and xarelto. Returned to the [facility] with worsening pain and discoloration of his [...] Name: Tristin Powell : 1940 MR #: [id number] Admit Date: 1070905 Assessment and Plan: Tristin Powell is a 78 y.o. male with a PMH of PVD s/p LLE angio with stent placement 08/09, prostatecancer, PVD, CAD, HTN and a PSH of L ankle ORIF and thriple CABG in october 2016 with L saphenous vein harvested who presented to [facility] 09/04/2018 as a transfer from [place] for second opinion regarding left lower extremity pain and discoloration Chronic LLE ischemia S/p peroneal femoral bypass 09/07/18 - 2 Days Post-Op - Regular diet - Rooke boot LLE - ET consult for skin blistering - Pain and N control - PT/OT, OOB, Encourage IS - Discussed with Dr. Cornell MARTINEZ. No [...] Final Result Stable chest. No acute disease. [employer] Workstation ID: [id number] Saphenous vein mapping, limited Final Result Cardiac Catheterization Final Result Ultrasound duplex arterial leg left Final Result XR Comparison Import Final Result Xr Chest 1 View Result Date: 09/07/2018 EXAMINATION: AP CHEST HISTORY: Hypoxia. COMPARISON: 08/01/2018 from [facility]. 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 Coronary artery stents are visualized. Minimal linear scarring at the lung bases, unchanged. No pneumothorax. No definite pleural ef fusion no new opacities. Stable chest. No acute disease. [employer] Workstation ID: [id number] Xr Fluoroscopy Time Result Date: 09/08/2018 This is an auto finalized result. Please refer to patient chart for further information. Saphenous Vein Mapping, Limited Result Date: 09/06/2018 Non-Invasive Vascular Patient: SHERRY TRISTIN Hortensia [facility] Rec#: [id number] (Age): 1940(78y) Study Date: 09/06/2018 Room#: 3386 Type: Inpatient Sex: M Reading: Manuel Leonard MD, RPVI, RVT Referring: ARISTEO Stock Cutter: ZeyadTom chauhan RDCS, RVT Procedure Info: [id number] Study Quality: Lower Vein Map: limited Study [...] signedat 09/06/2018 11:49:41 by: Manuel Leonard MD, RPLUIZA, RVT Xr Or Angio Add Result Date: 09/08/2018 This is an auto finalized result. Please refer to patient chart for further information. Miryam Rincon MD PGY-2 Surgery [phone] After 5pm and on Weekends, please page [phone] (Surgery Global Product Manager transmission engineer) * Joi Vaughan, RN - 09/08/2018 [...] Franco DO - 09/08/2018 9:38 AM EST [employer]™ Medical Inpatient Progress Note 09/08/2018 Tristin Powell 1940 [id number] Assessment/Plan: Tristin Powell is a 78 y.o. male with a history of PVD s/p LLE angio with stent placement 08/09, prostate cancer, PVD, CAD, HTN who presented to [facility] 09/04/2018 as a transfer from [place] for second opinion regarding left lower extremity pain and discoloration that was present two days prior to admit there on 08/30/18. On admit his exam was notable for cool mottled left foot. He was admitted for further work up. Labs prior to transfer notable for Cr 0.7. 1. Critical LLE Ischemia: s/p LLE angiogram 08/09/18 with popliteal balooning and stent in [place], Discharged on ASA and xarelto. Returned to the [facility] with worsening pain and discoloration of his [...] discharge date: TBD Updated daughter at bedside 1/9/19 Subjective: Pt has LLE bypass surgery yesterday. [...] 7 days Lab Units 09/08/18 02509/07/18 0758 INR 1.2* 1.2* * Esau Alejandro MD - 09/08/2018 9:37 AM EST VASCULAR SURGERY PROGRESS NOTE 09/08/18 Patient Name: Tristin Powell : 1940 MR #: [id number] Admit Date: [id number] Assessment and Plan: Tristin Powell is a 78 y.o. male with a PMH of PVD s/p LLE angio with stent placement 08/09, prostatecancer, PVD, CAD, HTN and a PSH of L ankle ORIF and thriple CABG in october 2016 with L saphenous vein harvested who presented to [facility] 09/04/2018 as a transfer from [place] for second opinion regarding left lower extremity pain and discoloration Chronic LLE ischemia S/p peroneal femoral bypass 09/07/18 - Patient underwent LLE angiogram with popliteal ballooning and stent 08/09/2018 in [place], sent onaspirin and xarelto - Angiography 09/05/18 showed Infrapopliteal Artery Stenosis Left , severe ASPVD with occluded stent.No reasonable endovascular options. - Diet as tolerated, HLIV - Rooke boot LLE - ET consult for skin blistering - Pain and N control - Continue P/O care - Discussed with Dr. Sarabia Subjective [facility] Physical Examination: Vital Signs: BP [...] Final Result Stable chest. No acute disease. [facility] Workstation ID: [id number] Saphenous vein mapping, limited Final Result Cardiac Catheterization Final Result Ultrasound duplex arterial leg left Final Result XR Comparison Import Final Result Cardiac Catheterization Result Date: 09/05/2018 Patient Name: TRISTIN POWELL Date of : 1940 Procedure Date: 09/05/2018 Physician(s): Ben Hahn MD Cath #: [id number] Ref. Physician: PROCEDURE(S) PERFORMED: Ultrasound- guided vascular access Aortogram: Abdominal with runoff-bilateral Peripheral Angiography Lower Extremity Angiogram - Left Clinical History: Prior CABG: Yes Peripheral Arterial Disease: Yes, , with prior peripheral [employer]. Dyslipidemia: Yes Hypertension: Yes Pre-OP Diagnosis/Indication: Deann [...] amputation COMMENTS: No Complications ____ Equipment: Sheath(s) iGuiders 5F 10CM PINNACLE SHEATH [employer] MEDICAL 6F 45CM .038 FLEXOR CHECKFLO ANSEL1 SHEATH Wire(s) [employer] .035 X 150CM FIXED J WIRE Catheter(s) [employer] 5F MP TEMPO AQUA CATHETER Other [employer] .035 CXI ANGLED SUPPORT CATHETERS SHER VASCULAR [...] AP CHEST HISTORY: Hypoxia. COMPARISON: 08/01/2018 from [facility]. 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 Coronary artery stents are visualized. Minimal linear scarring at the lung bases, unchanged. No pneumothorax. No definite pleural ef fusion no new opacities. Stable chest. No acute disease. [facility]/[employer] Workstation ID: [id number] Xr Fluoroscopy Time Result Date: 09/08/2018 This is an auto finalized result. Please refer to patient chart for further information. Saphenous Vein Mapping, Limited Result Date: 09/06/2018 Non-Invasive Vascular Patient: SHERRY Bazan [facility] Rec#: [id number] (Age): 1940(78y) Study Date: 09/06/2018 Room#: 3386 Type: Inpatient Sex: M Reading: Manuel Leonard MD, RPVI, RVT Referring: ARISTEO Stock Cutter: Tom Jeffers RDCS, RVT Procedure Info: [id number] Study Quality: Lower Vein Map: limited Study [...] signedat 09/06/2018 11:49:41 by: Manuel Leonard MD, RPLUIZA, RVT Xr Or Angio Add Result Date: 09/08/2018 This is an auto finalized result. Please refer to patient chart for further information. Esau Alejandro MD General Surgery PGY-1 Pager [phone] *After 5pm, or on weekends, page [phone]* * Sirisha Doshi RD - 09/07/2018 2:26 PM EST Nutrition [...] Estimated Energy Needs Total Energy Estimated Needs: 1764-8306 kcal Method for Estimating Needs: MSJ + 20% Total Protein Estimated Needs: 88-106 g Method for Estimating Needs: 1-1.2 g/kg IBW (BMI 24.9) Assessed By: Sirisha Doshi RD, LD * Maranda Meléndez, TECHNOLOGY SERVICES MANAGER - 09/07/2018 1:15 PM EST Progress Note: [facility] PAIN SERVICE Date: 09/07/2018 Patient name: Tristin Powell Date Of : 1940 Assessment/Plan: Pain of left lower extremity Assessment & Plan -Presented to [facility] 09/04/2018 as a transfer from [place] for second opinion regarding left lower extremity [...] in pain -Reports pain is uncontrolled with CHIPS SCREEN TENDER Dilaudid pump, and pain does not decrease [...] on hospital day 3 as transfer from [place] for second opinion for LLE pain and discoloration. S/p LLE angio with stent placement 08/09/18. HPI: Patient found writhing in bed, holding his left leg; family members at bedside. He is alert and oriented, and appears extremely uncomfortable. Patient states he needs something for his pain now;CHIPS SCREEN TENDER Dilaudid drip still in place. Family asking [...] artery disease involving coronary bypass graft of [place] heart without angina pectoris ARTERIOSCLEROSIS OF CORONARY [...] from last 7 days Lab Units 09/07/18 0751 09/06/18 2219 09/06/18 1834 09/06/18 0545 09/05/18 [...] Franco DO - 09/07/2018 10:15 AM EST [facility] Inpatient Progress Note 09/07/2018 Tristin Hortensia Powell 1940 [id number] Assessment/Plan: Tristin Powell is a 78 y.o. male with a history of PVD s/p LLE angio with stent placement 08/09, prostate cancer, PVD, CAD, HTN who presented to [facility] 09/04/2018 as a transfer from [place] for second opinion regarding left lower extremity pain and discoloration that was present two days prior to admit there on 08/30. On admit his exam was notable for cool mottled left foot. He was admitted for further work up. Labs prior to transfer notable for Cr 0.7. 1. Critical LLE Ischemia: s/p LLE angio 08/09, Discharged on xeralto. Returned to the [facility] with worsening pain and discoloration of his [...] the setting of acute limb ischemia.On dilaudid CHIPS SCREEN TENDER per pain management. 3. Opioid induced constipation: [...] has uncontrolled LLE pain. Currently on Dilaudid CHIPS SCREEN TENDER pump and pt is maxing his dose at 1.5mg q1h. Pt states he has continued pain in LLE. Instructed nursing staff tocontact pain management for updated pain plan/CHIPS SCREEN TENDER titration. Plan for bypass surgery today. Physical [...] Franco DO - 09/06/2018 11:35 AM EST [facility] Inpatient Progress Note 09/06/2018 Tristin Hortensia Sherry 1940 [id number] Assessment/Plan: Tristin Powell is a 78 y.o. male with a history of PVD s/p LLE angio with stent placement 08/09, prostate cancer, PVD, CAD, HTN who presented to [facility] 09/04/2018 as a transfer from [place] for second opinion regarding left lower extremity pain and discoloration that was present two days prior to admit there on 08/30. On admit his exam was notable for cool mottled left foot. He was admitted for further work up. Labs prior to transfer notable for Cr 0.7. 1. Critical LLE Ischemia: s/p LLE angio 08/09, Discharged on xeralto. Returned to the [facility] with worsening pain and discoloration of his [...] CALCIUM mg/dL 9.5 9.3 * Yasmeen Diaz, TECHNOLOGY SERVICES MANAGER - 09/06/2018 7:37 AM EST [facility] Heart & Vascular Cardiology Daily Progress Note Name: Tristin Powell Age: 78 y.o. Date: September 06, 2018 ASSESSMENT & PLAN: Critical lower limb ischemia Assessment & Plan Pt s/p LLE angiogram with Dr Hahn who feels that the pt has no further endovascular options. He has consulted Dr. Sarabia for a possible tibial bypass. Pt s/p LLE critical limb ischemia [place] class 4 rest pain with distal discoloration to his toes. Pt is s/p L pop angioplasty with stent placement 08/09 at [facility] in [place], [place]. Ptwas placed on Xarelto and ASA. [...] artery disease involving coronary bypass graft of [place] heart without angina pectoris Assessment & Plan [...] Nightly Mirna Mckeon MD 40 mg at 09/05/18 203 atropine injection 1 mg 1 mg Intravenous [...] SADIA Mirna Mckeon MD 300 mg at 09/05/18 [...] CKTOTAL, CKMB, TROPONINI, TROPONINT Yasmeen Diaz, MSN, MINIATURE MODEL MAKER-C Nurse Practitioner 09/06/2018 * Vianca Franco DO - 09/05/2018 11:11 AM EST [facility] Inpatient Progress Note 09/05/2018 Tristin Powell 1940 [id number] Assessment/Plan: Tristin Powell is a 78 y.o. male with a history of PVD s/p LLE angio with stent placement 08/09, prostate cancer, PVD, CAD, HTN who presented to [facility] 09/04/2018 as a transfer from [place] for second opinion regarding left lower extremity [...] 08/09, Discharged on xeralto. Returned to the [facility] with worsening pain and discoloration of his [...] EST Patient Name: Tristin Powell MR #: [id number] : 1940 Physicians: Flash Lovelace MD (Family); No ref. provider found (Referring) History of Present Illness: Tristin Powell is a 78 y.o. male Dictation on: 09/20/2018 5:58 PM by: FLYNN MANN [[id number]] History: The following portions of the patient's [...] None 09/20/2018 2:00 PM Wound Bed Characteristics Black;Yellow;Red;[place] 09/20/2018 2:00 PM [place]na-wound Assessment Dry;Ecchymosis 09/20/2018 2:00 PM Treatments Not Applicable 09/20/2018 2:00 PM Hemostasis Not applicable 09/20/2018 2:00 PM Cleansed Sterile saline 09/20/2018 2:00 PM Primary Dressing Betadine;Impregnated gauze 09/20/2018 2:00 PM Secondary Dressing Dry gauze dressing;Gauze roll;Gauze pad 09/20/2018 2:00 PM Compression Dressing Not Applicable 09/20/2018 2:00 PM Dictation on: 09/20/2018 5:59 PM by: FLYNN MANN [[id number]] Assessment and Plan: SNOMED CT(R) 1. Critical lower limb ischemia CRITICAL LOWER LIMB ISCHEMIA Prealbumin Albumin Protein,Total XR Foot Left 3+ Views (Standard) XR Ankle Left 3+ Views (Standard) 2. Gangrene (HCC) GANGRENOUS DISORDER 3. PVD (peripheral vascular disease) (HCC) PERIPHERAL VASCULAR DISEASE 4. Left foot pain PAIN IN LEFT FOOT Dictation on: 09/20/2018 6:00 PM by: FLYNN MANN [[id number]] Flynn Mann, DPM, FACFAS Electronically signed by [...] Lew LISW - 09/27/2018 10:35 AM EST [facility] fax[place] signed orders from pt's 09/20/18 clinic visit to pt's [facility], [facility] [place]. [facility] previously faxed same on 09/20/18 but now signed by physician. in this encounter* Radha Parker RN - 10/04/2018 4:59 PM EST Patient was admitted to [facility] for surgery. * Flynn Mann DPM - 10/04/2018 4:50 PM EST Patient Name: Tristin Powell MR #: [id number] : 1940 Physicians: Flash Lovelace MD (Family); [...] post bypass surgery with Dr. Sarabia at [facility] on 09/07/2018. No new complaints per patient. [...] Canseco MD - 10/12/2018 9:44 AM EST [facility] DAILY PROGRESS NOTE Assessment and Plan 78 y.o. male patient of Flash Lovelace MD with history of PAD, CAD and HTN that presented to [place] with need for left foot partial amputation. [...] Qureshi Catheter: none Disposition Discharge Location: [facility] Estimated Discharge Date: Medically stable to discharge [...] 14.5-hour post-dose level Pharmacist: Edwina Browne RPh,PharmD, [facility] Contact Number: Vocera OR pharmacist [...] Independent Transfers Sit to Stand: Contact guard Oxyacetylene Welder: Wheeled walker Skilled Intervention: cont. to reinforce [...] Wheelchair-electric Prior Level of Function Level of [place]: Independent with ADLs and functional transfers, Independent [...] labs reviewed. -Empiric IV Vancomycin. -Radiographs reviewed. -[facility] c'sed for medical management. -WBAT to LLE -DVT ppx lovenox. -Patient discussed with Dr. Mann who agrees with assessment and plan. Patient had bypass surgery ofLLE at [place] in August. Pt now s/p left midfoot [...] articulations. Surgical drain present. [employer] Workstation ID: [id number] XR Chest 1 View Final Result 1. [...] PM EST VM from Jose Manuel @ [facility] requesting final Iv atb orders. Return call [...] Sit: Modified independence Sit to Supine: Modified [place] Functional Transfers Sit to Stand: Contact guard [...] Wheelchair-electric Prior Level of Function Level of [place]: Independent with ADLs and functional transfers, Independent [...] 36-hour post-dose level Pharmacist: Edwina Browne RPh,PharmD, [facility] Contact Number: Vocera OR pharmacist * Jeanette Ramirez RN - 10/11/2018 1:03 PM EST Call from daughter Monica Zaidi requesting update on pre-cert and possible transport needs. Advised Monica we do not yet have pre-cert and we plan to notify her of the same once we obtain it. She requests to transport her father to [facility]. She relates they have been transporting him [employer] and are aware of his limited gait and transferring capabilities. Monica plans to arrive here 10/12 after an AM meeting. Plan to contact Monica once pre-cert is obtained # [phone]. * Alice Delvalle, [employer] - 10/11/2018 11:33 AM EST Physical Therapy [...] to Chair: (x 2 for line management) Oxyacetylene Welder: Wheeled walker Skilled Intervention: cued to achieve [...] Wheelchair-electric Prior Level of Function Level of [place]: Independent with ADLs and functional transfers, Independent [...] Canseco MD - 10/11/2018 10:43 AM EST [facility] DAILY PROGRESS NOTE Assessment and Plan 78 y.o. male patient of Flash Lovelace MD with history of PAD, CAD and HTN that presented to [facility] with need for left foot partial amputation. [...] Qureshi Catheter: none Disposition Discharge Location: [facility] Estimated Discharge Date: Pending Hgb stability Outpatient [...] labs reviewed. -Empiric IV Vancomycin. -Radiographs reviewed. -[facility] c'sed for medical management. -WBAT to LLE -DVT ppx lovenox. -Patient discussed with Dr. Mann who agrees with assessment and plan. Patient had bypass surgery ofE at [facility] in August. Pt now s/p left midfoot [...] articulations. Surgical drain present. [employer] Workstation ID: [id number] XR Foot Left 3+ Views (Standard) Final [...] PAD, CAD and HTN that presented to [facility] with need for left foot partial amputation. Action: SW met with pt who requests referral to [facility] [place]. SW educated pt on referral/PC process. Pt [...] labs reviewed. -Empiric IV Vancomycin. -Radiographs reviewed. -[facility] c'sed for medical management. -WBAT to LLE -DVT ppx lovenox. -Patient discussed with Dr. Mann who agrees with assessment and plan. Patient had bypass surgery ofLLE at [facility] in August. Pt now s/p left midfoot [...] articulations. Surgical drain present. VK/mll Workstation ID: [id number] XR Foot Left 3+ Views (Standard) Final [...] Canseco MD - 10/10/2018 9:37 AM EST [facility] DAILY PROGRESS NOTE Assessment and Plan 78 y.o. male patient of Flash Lovelace MD with history of PAD, CAD and HTN that presented to [facility] with need for left foot partial amputation. [...] Information Primary Caregiver: Self Accompanied by/Relationship: none Christianity/Cultural Factors: none Legal Documentation Advance Directives: (none) Resuscitation Status: Resuscitate Resources Financial Resources: Other (Comment)([employer] Medicare insurance confirmed) Community Resources: Other (Comment)(PCP Dr. Lovelace [phone]) Discharge Plan Shared UM/CC and RN Source of Information: Patient Contact Phone Number: emergency contact Amina Zaidi p:[phone] Living Arrangements: Children Support Systems: Children Functional Status: Independent Type of Residence: Private residence Prior to Admission Home Care Services: Yes Type of Current Home Care Services: Home health care Current Agency Name: [facility] Current Home Equipment: Walker, Wheeled walker, Toilet seat recycle coordinator, Tub/Shower chair Insurance Coverage for Prescriptions: Yes [...] Estimated Energy Needs Total Energy Estimated Needs: 7300-6588 kcal Method for Estimating Needs: 25-30 kcal/kg Total Protein Estimated Needs: 95-144 gm Method for Estimating Needs: 1.0-1.2 gm/kg Assessed by: Gaye Carver RD,LD Phone #: [phone] Pager #: [phone] * Stan Canseco MD - 10/09/2018 11:01 AM EST [facility] DAILY PROGRESS NOTE Assessment and Plan 78 y.o. male patient of Flash Lovelace MD with history of PAD, CAD and HTN that presented to [facility] with need for left foot partial amputation. 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 Sarabia Continue plavix and statin ASA on hold for surgery CAD S/p 3 vessel bipass in 2016 Continue plavix, Statin and BB ASA on hold for surgery, and would like to resume when ok with Dr. Mann HTN Continue BB Insomnia Holding home Ambien Can start trazodone if needed Quality Measures DVT Prophylaxis: per primary Qureshi Catheter: none Disposition Discharge Location: [facility] Estimated Discharge Date: Medically stable to nd home Outpatient Testing: none Subjective Resting comfortably. [...] labs reviewed. -Empiric IV Vancomycin. -Radiographs reviewed. -[facility] c'sed for medical management. -WBAT to LLE -DVT ppx lovenox. -Patient discussed with Dr. Mann who agrees with assessment and plan. [facility] Pt now s/p left midfoot [...] articulations. Surgical drain present. [employer]A/karie Workstation ID: [id number] XR Foot Left 3+ Views (Standard) Final [...] Canseco MD - 10/08/2018 10:45 AM EST [facility] DAILY PROGRESS NOTE Assessment and Plan 78 y.o. male patient of Flash Lovelace MD with history of PAD, CAD and HTN that presented to [facility] with need for left foot partial amputation. [...] reviewed: No acute abnormalities or ST gas -[facility] c'sed for medical management and preoperative clearance. -WBAT to LLE -DVT ppx lovenox. -Patient discussed with Dr. Mann who agrees with assessment and plan. Pt with mummification and drygangrene of left forefoot, patient had bypass surgery of LLE at [facility] in August. Pt with some local erythema [...] Echocardiogram complete (Results Pending) * Demetrice Lomeli RP,PharmD - 10/08/2018 12:15 AM EST Pharmacokinetic Consult [...] to participate in this patient's care. Demetrice Lomlei, KenyattaD, [facility] Vocgerlach: ED Pharmacy * Aaron Choi MD - 10/07/2018 11:56 AM EST [facility] DAILY PROGRESS NOTE Assessment and Plan 78 y.o. male patient of Flash Lovelace MD with history of PAD, CAD and HTN that presented to [facility] with need for left foot partial amputation. [...] reviewed: No acute abnormalities or ST gas -[facility] c'sed for medical management and preoperative clearance. -WBAT to LLE -DVT ppx lovenox. -Patient discussed with Dr. Mann who agrees with assessment and plan. Pt with mummification and drygangrene of left forefoot, patient had bypass surgery of LLE at [facility] in August. Pt with some local erythema will monitor response to Abx. Continue daily betadine dressing changes. Plan for OR on Monday (10/08/18) for left midfoot amputation (Open vs. Closed) at 7am. Consent obtained. [facility] consulted for medical management. Patient will require preoperative risk stratification. Appreciate [facility] assistance. Further plan per Dr. Mann SUBJECTIVE [...] is clinically warranted, consider MRI or CT. [facility]/dbg Workstation ID: [id number] Echocardiogram complete (Results Pending) * Aaron Choi MD - 10/06/2018 10:50 AM EST [facility] DAILY PROGRESS NOTE Assessment and Plan 78 y.o. male patient of Flash Lovelace MD with history of PAD, CAD and HTN that presented to [facility] with need for left foot partial amputation. [...] primary Qureshi Catheter: none Disposition Discharge Location: D Estimated Discharge Date: TBD - surgery Monday [...] reviewed: No acute abnormalities or ST gas -[facility] c'sed for medical management and preoperative clearance. -WBAT to LLE -DVT ppx lovenox. -Patient discussed with Dr. Mann who agrees with assessment and plan. Pt with mummification and drygangrene of left forefoot, patient had bypass surgery of LLE at [facility] in August. Pt with some local erythema will monitor response to Abx. Continue daily betadine dressing changes. Plan for OR on Monday (10/08/18) for left midfoot amputation (Open vs. Closed) at 7am. Consent to be obtained. [facility]. Patient will require preoperative risk stratification. [facility] assistance. Further plan per Dr. [...] reviewed: No acute abnormalities or ST gas -[facility] c'sed for medical management and preoperative clearance. -WBAT to LLE -DVT ppx lovenox. -Patient discussed with Dr. Mann who agrees with assessment and plan. Pt with mummification and drygangrene of left forefoot, patient had bypass surgery of LLE at [facility] in August. Pt with some local erythema will monitor response to Abx. Continue daily betadine dressing changes. Plan for OR on Monday (10/08/18) for left midfoot amputation (Open vs. Closed). [facility] consulted for medical management. Patient will require preoperative risk stratification. Appreciate [facility] assistance. Further plan per Dr. Mann SUBJECTIVE [...] further evaluation is clinically warranted, consider MRI. [facility]/dbg Workstation ID: [id number] Associated [...] EST Patient Name: Tristin Powell MR #: [id number] : 1940 Physicians: Flash Lovelace MD (Family); No ref. provider found (Referring) History of Present Illness: Tristin Powell is a 78 y.o. male Dictation on: 10/18/2018 6:12 PM by: FLYNN MANN [[id number]] History: The following portions of the patient's [...] mouth every 4 (four) hours as needed (december repeat) (Days supply per fill: 7) . [...] on: 10/18/2018 6:13 PM by: FLYNN MANN [[id number]] Assessment and Plan: SNOMED CT(R) 1. Gangrene (HCC) GANGRENOUS DISORDER 2. 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 (HCC) HISTORY OF AMPUTATION OF FOOT 3. PVD (peripheral vascular disease) (HCC) PERIPHERAL VASCULAR DISEASE Dictation on: 10/18/2018 6:14 PM by: FLYNN MANN [[id number]] Flynn Mann, SHIRLEY, FACFAS Electronically signed by the above physician 10/18/18 * Miaa Duvall RN - 10/18/2018 4:16 PM EST Dressing changed by Dr Mann. Betadine, 4x4's, ABD pad, specialist cast padding, splint, rio bandages * Maia Duvall RN - 10/18/2018 3:39 PM EST in this encounter* Mine Lew LISW - 10/19/2018 8:38 AM EST Pt was seen in clinic 10/18/18. [facility] fax[place] signed d/c orders/instructions to pt's SNF, [facility]. in this encounter* Mine Lew LISW - 10/26/2018 9:19 AM EST Pt was seen in wound clinic 10/25/18. [facility] [place] fax[place] signed orders/instructions to pt's [facility], [facility]. in this encounter* Radha Parker RN - 10/31/2018 4:45 PM EST Opened in error. in this encounter* Eugene Barnett MD - 12/17/2018 9:57 PM EDT [facility] [address] [place] [address] FAX [phone] Tristin Powell 1940 male MD Flash Peña MD [phone] Chief Complaint Patient presents with Cerumen Impaction [...] MIDFOOT AMPUTATION; Surgeon: Flynn Mann DPM; Location: [facility] OR; Service: Podiatry ANKLE SURGERY Left BYPASS PERONEAL FEMORAL Right 09/07/2018 Procedure: BYPASS PERONEAL FEMORAL, RIGHT SAPHENOUS VEIN HARVEST, COMPLETION ANGIOGRAM; Surgeon: Mohsen Sarabia MD; Location: [facility] NEURO OR; Service: Cardiovascular CARDIAC CATHETERIZATION Left 09/05/2018 Procedure: Angio Lower Extremity; Surgeon: Ben Hahn MD; Location: [facility] 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; Service: Cardiovascular CARDIAC SURGERY 2017 triple bypass EGD N/A 10/10/2018 Procedure: ESOPHAGOGASTRODUODENOSCOPY; Surgeon: Ben Jensen MD; Location: [facility]; Service: Gastroenterology EYE SURGERY Right 2015 [...] MD documented in this encounter* Rose Rosales, TECHNOLOGY SERVICES MANAGER - 10/09/2019 5:07 PM EST VASCULAR SURGERY CONSULT NOTE Patient Name: Tristin Powell Admit Date: MR #: [id number] : 1940 Assessment and Plan: cta with [...] MIDFOOT AMPUTATION; Surgeon: Flynn Mann DPM; Location: [facility] OR; Service: Podiatry ANKLE SURGERY Left BYPASS PERONEAL FEMORAL Right 09/07/2018 Procedure: BYPASS PERONEAL FEMORAL, RIGHT SAPHENOUS VEIN HARVEST, COMPLETION ANGIOGRAM; Surgeon: Mohsen Sarabia MD; Location: [facility] NEUR[facility] OR; Service: Cardiovascular CARDIAC CATHETERIZATION Left 09/05/2018 Procedure: Angio Lower Extremity; Surgeon: Ben Hahn MD; Location: [facility] 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; Service: Cardiovascular CARDIAC SURGERY 2017 triple bypass EGD N/A 10/10/2018 Procedure: ESOPHAGOGASTRODUODENOSCOPY; Surgeon: Ben Jensen MD; Location: [facility] End[facility]; Service: Gastroenterology EYE SURGERY Right 2015 [...] file Gets together: Not on file Attends druze service: Not on file Active member of [...] Instructions Prior to Surgery LOLA: Printed on:10/09/19 6477 Medication Information Take last dose on Take [...] the diagnosis & follow-upneeds. Rose Rosales CNP [phone] documented in this encounter* Flynn Mann DPM - 10/25/2018 6:03 PM EST Patient Name: Tristin Powell MR #: [id number] : 1940 Physicians: Flash Lovelace MD (Family); No ref. provider found (Referring) History of Present Illness: Tristin Powell is a 78 y.o. male Dictation on: 10/25/2018 6:03 PM by: FLYNN MANN [[email or web address]] History: The following portions of the patient's [...] on: 10/25/2018 6:04 PM by: FLYNN MANN [[id number]] Assessment and Plan: SNOMED CT(R) 1. 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 Gangrene (HCC) GANGRENOUS DISORDER 3. PVD (peripheral vascular disease) (HCC) PERIPHERAL VASCULAR DISEASE 4. 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 Lower extremity edema EDEMA OF LOWER EXTREMITY Dictation on: 10/25/2018 6:04 PM by: FLYNN MANN [[id number]] Flynn Mann DPM, FACFAS Electronically signed by the above physician 10/25/18 * Lori Velez RN - 10/25/2018 3:46 PM EST in this encounter* Mine Lew LISW - 09/21/2018 8:27 AM EST Pt was seen in clinic 09/20/18. [facility] [place] signed d/c orders/instructions to pt's [facility], [facility]. in this encounter* Mohsen Sarabia MD - [...] content not included)... Note Patient: TRISTIN POWELL Age: 79 years Sex: Male : 1940 Associated Diagnoses: None Author: Jose C Davis MD Assessment Assessment Diagnosis: Osteoarthritis (EGS44-HB M47.892, Working, Medical). Posterior cervical fusion. Dr. [...] Ischemic foot- Primary PAD (peripheral artery disease) ([facility]) Unspecified peripheral vascular disease Critical lower limb ischemia Unspecified circulatory system disorder Coronary artery disease involving coronary bypass graft of [place] heart without angina pectoris Hypercholesteremia Pure hypercholesterolemia Essential hypertension Unspecified essential hypertension Class 1 obesity with body mass index (BMI) of 31.0 to 31.9 in adult Pain of left lower extremity Diagnosis Critical lower limb ischemia- Primary Unspecified circulatory system disorder Gangrene (HCC) Gangrene PVD (peripheral vascular disease) ([facility]) Unspecified peripheral vascular disease Left foot pain Pain in soft tissues of limb Diagnosis Critical lower limb ischemia Unspecified circulatory system disorder Diagnosis Gangrene (HCC)- Primary Gangrene PVD (peripheral vascular disease) ([facility]) Unspecified peripheral vascular disease Left foot pain Pain in soft tissues of limb Critical lower limb ischemia Unspecified circulatory system disorder Ulcer of toe of left foot, with necrosis of bone (HCC) Diagnosis Acute post-operative pain- Primary Gangrene of left foot (HCC) Diagnosis Gangrene (HCC)- Primary Gangrene 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 (HCC) PVD (peripheral vascular disease) ([facility]) Unspecified peripheral vascular disease Lower extremity edema Edema 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, left Diagnosis 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) S/P bypass graft of extremity Diagnosis Referred otalgia of right ear- Primary Bilateral temporomandibular joint pain Diagnosis Bilateral carotid artery stenosis Occlusion and stenosis of carotid artery without mention of cerebral infarction Diagnosis Atherosclerosis of [place] arteries of the extremities with ulceration (HCC) S/P bypass graft of extremity Diagnosis Atherosclerosis of [place] arteries of the extremities with ulceration ([facility]) S/P bypass graft of extremity Diagnosis Pain of left lower extremity Diagnosis S/P bypass graft of extremity PAD (peripheral artery disease) ([facility]) Unspecified peripheral vascular disease Atherosclerosis of [place] arteries of the extremities with ulceration ([facility]) Diagnosis Bilateral carotid artery stenosis Occlusion and stenosis of carotid artery without mention of cerebral infarction Diagnosis Atherosclerosis of [place] arteries of the extremities with ulceration ([facility]) Diagnosis 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 Gangrene (HCC) Gangrene PVD (peripheral vascular disease) ([facility]) Unspecified peripheral vascular disease 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, left Lower extremity edema Edema Diagnosis Gangrene of left foot (HCC)- Primary Critical lower limb ischemia Unspecified circulatory system disorder Diagnosis Atherosclerosis of [place] arteries of the extremities with ulceration ([facility]) Diagnosis Critical lower limb ischemia- Primary Unspecified circulatory system disorder Diagnosis Atherosclerosis of [place] artery of left lower extremity with rest pain ([facility]) S/P bypass graft of extremity Instructions * [...] If the bleeding does not stop, call [facility] at [phone] or go to the Emergency Room. Signs/Symptoms of infection: If you have any fever, chills, nausea, vomiting or increased odor, drainage, pain or redness to thewound, call [facility] at [phone]. If after hours, contactyour family physician or [...] regarding your home care instructions please contact [facility] at [phone]. If after hours, contact your primary care physician or go to the hospital emergency room. Please call 24 hours prior to your scheduled appointment if you need to cancel or reschedule. in this encounter* Patient Instructions* Radha Parker RN - 10/04/2018 1:14 PM EST You are being admitted to [facility] for surgery possibly Monday. Go to [facility]. in this encounter* Patient Instructions* [...] If the bleeding does not stop, call [facility] at [phone] or go to the Emergency Room. Signs/Symptoms of infection: If you have any fever, chills, nausea, vomiting or increased odor, drainage, pain or redness to thewound, call [facility] at [phone]. If after hours, contactyour family physician or [...] regarding your home care instructions please contact [facility] at [phone]. If after hours, contact your primary care physician or go to the hospital emergency room. Please call 24 hours prior to your scheduled appointment if you need to cancel or reschedule. in this encounter* Patient Instructions* Lori Velez RN - 10/25/2018 4:24 PM EST LEAVE DRESSINGS IN PLACE UNTIL NEXT CLINIC VISIT. DRESSING CHANGED BY DR MNAN ONLY!!! Edema Control Instructions: Elevate legs above the level of your heart whenever you are sitting. Avoid standing for long periods and do not sit with your legs dangling. Watch for bleeding. If your wound continues to bleed after your appointment, apply direct pressure to the wound with a clean cloth or dressing for 10-20 minutes. If the bleeding does not stop, call [facility] at [phone] or go to the Emergency Room. Signs/Symptoms of infection: If you have any fever, chills, nausea, vomiting or increased odor, drainage, pain or redness to thewound, call [facility] at [phone]. If after hours, contactyour family physician or [...] regarding your home care instructions please contact [facility] at [phone]. If after hours, contact your primary care physician or go to the hospital emergency room. Please call 24 hours prior to your scheduled appointment if you need to cancel or reschedule. in this encounter Procedure Findings Note Patient: TRISTIN POWELL MRN: ([id number] Age: 79 years Sex: Male : 1940 [...] for spinal fusion. SURGEON: Ramana Cason MD OPERATIONS PROJECT MANAGER: LEONARDA Selby ANESTHESIA: General. SPECIMENS: There were no specimens removed. COMPLICA (more content not included)... Note CLINICAL SUMMARY Please take this summary document to your follow up appointments. [facility] 11/29/19 11:09 [address] [place]. [address] PATIENT INFORMATION Name: TRISTIN POWELL Address: [address] [address] Age: 79 Years Phone: [phone] : 1940 12:00 MRN: [facility])-[id number] Sex: Male Race: White Ethnicity: Not Hispan/Lat Admitted From: Clinic or [facility] Medical Service: Orthopedic Surgery Nurse Unit/Bed: [...] not included)... 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 Posterior cervical fusion. Dr. [...] Admit Date Peripheral vascular disease March 11 025 11:20am Chief Complaint Admit Date RT foot pain, swell, with sore February 11:20am PAD w/Claudication, Non Heeling Wound Ju ly 2024 12:29pm chest pain, swelling in legs, cough Apr 4:42pm Reason for Visit Admit Date Peripheral vascular disease March 11 025 11:20am Chest pain May 02, 2025 4:42pm Dyspnea May 02, 2025 4:42pm Chief Complaint Admit Date RT foot pain, swell, with sore February 11:20am PAD w/Claudication, Non Heeling Wound Ju ly 2024 12:29pm chest pain, swelling in legs, cough Sept ember 2024 11:19am Reason for Visit Admit Date Peripheral [...] section and content) DATE CREATED AUTHOR 02/16/2018 [facility] DATE CREATED AUTHOR AUTHOR'S ORGANIZ ATION 09/07/2018 [facility] DATE CREATED AUTHOR AUTHOR'S ORGANIZ ATION 11/01/2018 [facility] DATE CREATED AUTHOR AUTHOR'S ORGANIZ ATION 11/02/2018 [facility] DATE CREATED AUTHOR AUTHOR'S ORGANIZ ATION 11/12/2018 [facility] DATE CREATED AUTHOR AUTHOR'S ORGANIZ ATION 05/28/2020 [facility] DATE CREATED AUTHOR AUTHOR'S ORGANIZ ATION 07/21/[address] [facility] DATE CREATED AUTHOR AUTHOR'S ORGANIZ ATION 01/02/2022 [facility] DATE CREATED AUTHOR AUTHOR'S ORGANIZ ATION 10/29/2022 [facility] [employer] DATE CREATED AUTHOR AUTHOR'S ORGANIZ ATION 11/01/2022 [facility] DATE CREATED AUTHOR AUTHOR'S ORGANIZ ATION 12/08/2022 [facility] DATE CREATED AUTHOR AUTHOR'S ORGANIZ ATION 08/15/2023 [facility] DATE CREATED AUTHOR AUTHOR'S ORGANIZ ATION 12/31/2023 [facility] DATE CREATED AUTHOR AUTHOR'S ORGANIZ ATION 05/15/2024 [facility] DATE CREATED AUTHOR AUTHOR'S ORGANIZ ATION 12/22/2024 [facility] DATE CREATED AUTHOR AUTHOR'S ORGANIZ ATION 01/24/2025 [facility] DATE CREATED AUTHOR AUTHOR'S ORGANIZ ATION 04/25/2025 [facility] DATE CREATED AUTHOR AUTHOR'S ORGANIZ ATION 05/09/[address] [facility] DATE CREATED AUTHOR AUTHOR'S ORGANIZ ATION 06/02/2025 [facility] DATE CREATED AUTHOR AUTHOR'S ORGANIZ ATION 06/10/2025 [facility] DATE CREATED AUTHOR AUTHOR'S ORGANIZ ATION 06/11/2025 [facility] DATE CREATED AUTHOR AUTHOR'S ORGANIZ ATION 06/11/2025 [facility] EPIC Reason for Visit (unrecogniz ed section and content) ReasonCommentsBlood ClotStatusReasonSpecialtyDiagnoses / ProceduresReferred By ContactReferred To Contact Diagnoses LLE claudication Procedures Angio Lower Extremity ReasonCommentsWound CheckStatusReasonSpecialtyDiagnoses / ProceduresReferred By ContactReferred To Contact Diagnoses left foot gangrenous osteomyolitis StatusReasonSpecialtyDiagnoses / ProceduresReferred By ContactReferred To ContactPending ReviewCardiology Diagnoses 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) S/P bypass graft of extremity Procedures US Doppler ankle/brachial index Segmental doppler lower extremity arterial [place] [address] [place] [address] [address] [place] [address] ReasonCommentsCerumen ImpactionStatusReasonSpecialtyDiagnoses / Procedures Referred By ContactReferred To ContactPending ReviewCardiology Diagnoses Bilateral carotid artery stenosis Procedures Carotid Duplex Mohsen Sarabia MD [address] [place] [address] [address] [place] [address] ReasonCommentsFollow-upS/P PERONEAL- FEMORAL BYPASS 09/07/18StatusReasonSpecialty Diagnoses / ProceduresReferred By ContactReferred To ContactClosedRadiology Diagnoses S/P bypass graft of extremity PAD (peripheral artery disease) (HCC) Atherosclerosis of wy[place] arteries of the extremities with ulceration (HCC) Procedures CT Angiogram Abdominal Aorta With Lower Extremity Mohsen Sarabia MD [address] [place] [address] [address] [place] [address] StatusReasonSpecialtyDiagnoses / ProceduresReferred By ContactReferred To ContactClosedCardiology Diagnoses Bilateral carotid artery stenosis Procedures Carotid Duplex Mohsen Sarabia MD [address] [place] [address] [address] [place] [address] StatusReasonSpecialtyDiagnoses / ProceduresReferred By ContactReferred To ContactClosedCardiology Diagnoses Atherosclerosis of [place] arteries of the extremities with ulceration (HCC) Procedures Ultrasound ankle / brachial indices extremity complete Mohsen Sarabia MD [address] [place] [address] [address] [place] [address] KfkhlfJhtmyjdxAbkbpq-iuJyt-Putdu. bypass graft 09/09ReasonCommentsFollow-up6mo per-fem bypass graftStatusReasonSpecialtyDiagnoses / ProceduresReferred By ContactReferred To ContactPending ReviewCardiology Diagnoses Atherosclerosis of [place] artery of left lower extremity with rest pain (HCC) S/P bypass graft of extremity Procedures Ultrasound duplex arterial leg left Mohsen Sarabia MD [facility] [address] [place] [address] ReasonCommentsPost Op VisitSpecialtyDiagnoses / ProceduresReferred By Contact Referred To Contact Diagnoses Pain in prosthetic joint, subsequent encounter Procedures XR HIP WITH PELVIS RIGHT Dashawn Silvestre MD [address] [place] [address] Referral IDStatusReasonStart DateExpiration DateVisits RequestedVisits [id number] Request/[id number] Lesion SpecialtyDiagnoses / ProceduresReferred By ContactReferred To Contact Diagnoses Hx of total hip arthroplasty, right Procedures XR HIP WITH PELVIS RIGHT Dashawn Silvestre MD [address] [place] [address] Referral IDStatusReasonStart DateExpiration DateVisits RequestedVisits [id number] Request/[id number]hnu UpdateReasonCommentsLeg SwellingLeg PainNauseaSpecialtyDiagnoses / Procedures Referred By ContactReferred To Contact Diagnoses Cellulitis Referral IDStatusReasonStart DateExpiration DateVisits RequestedVisits [id number]f nodule and CT f/uSpecialtyDiagnoses / ProceduresReferred By ContactReferred To ContactPulmonary Disease / Pulmonology Diagnoses Pulmonary nodule Muna Otto MD [address] [facility] [address] [place] [address] Carson Gallagher MD [address] [facility] [address] [place] [address] Referral IDStatusReasonStart DateExpiration DateVisits RequestedVisits [id number] Review Specialty Services Required/Patient's Best Interest /[id number] SwellingSpecialtyDiagnoses / Procedures Referred By ContactReferred To Contact Diagnoses PAD (peripheral artery disease) (HCC) Referral IDStatusReasonStart DateExpiration DateVisits RequestedVisits [id number] / ProceduresReferred By ContactReferred To Contact Diagnoses Hx of total hip arthroplasty, right Procedures XR HIP WITH PELVIS RIGHT Scar Ortega, LEVEL DESIGNER-TECHNOLOGY SERVICES MANAGER [address] [place] [address] Referral IDStatusReasonStart DateExpiration DateVisits RequestedVisits [id number] [id number]-wqTdjkrt Onset DateCommentsMedication Wppekw8508/30/2022ReasonCommentsFoot InjuryShortness of BreathSpecialtyDiagnoses / ProceduresReferred By ContactReferred To Contact Diagnoses Peripheral edema Elevated troponin Community acquired pneumonia of left lower lobe of lung Referral IDStatusReasonStart DateExpiration DateVisits RequestedVisits [id number]-ikGYI-UPNNLWJZXESG-D/P LT FEM-PERONEAL BYPASS 09/07/18, (YAMILE AND DUPLEX BYPASS GRAFT PRIOR TODAY). Patient complains of bilateral leg pain.Referral IDStatusReasonStart DateExpiration DateVisits RequestedVisits [id number] Xomhacf30/[id number] DateCommentsMed Nyeuct1008/06/2024easonCommentsCoughShortness of BreathEmesis FeverReasonCommentsHypertensionReasonCommentsMed RefillCalmoheptadine, Zolpidem ReasonCommentsMed RefillOxycodoneReasonOnset DateCommentsMed Dsgwwh6010/18/2024 ReasonOnset DateCommentsMed Liwvqq3711/26/2024ReasonOnset DateCommentsMed Refill 01/02/2025ReasonCommentsFollow-upPain and R Toe color Change,S/P Peroneal Femoral Bypass Graft 09/07/2018ReasonCommentsLeg PainSpecialtyDiagnoses / ProceduresReferred By ContactReferred To Contact Diagnoses Claudication Right leg pain PAD (peripheral artery disease) (HCC) Peripheral artery disease Referral IDStatusReasonStart DateExpiration DateVisits RequestedVisits [id number] Akbdmj-opXkzhajGfiecnhdJtmpir-wmZE - WOUND CHECK - s/p R FEM-TIB BYPASS, 03/17 - APPT PER VAN ZELAYAReasonCommentsFoot UlcerReasonCommentsWound CheckPOST-OP - FU - WOUND CHECK - S/P R FEM-TIB BYPASS, 03/17 - BLE DUPLEX GRAFT, YAMILE'S PRIOR APPT TODAY - APPT PER Alcides BOX DateCommentsMedication Hufukwjw49/02/2025Has a terrible cold and runny nose wanted to know if you could zuly in a z-pack for him.ReasonCommentsMed Refill ReasonCommentsHospital Follow-up05/09 to 05/13 due to coughing bloodReasonOnset DateCommentsMed Bjbkke6105/29/2025ReasonCommentsMedicare Annual Wellness Visit Subsequent Ben Jiang MD - 09/07/2018 3:18 PM EST H&P Notes (unrecognized sect ion and content) INTERVAL HISTORY AND PHYSICAL Patient Name: Tristin Powell Admit Date: [id number] MR #: [id number] : 1940 The H&P has been reviewed and the patient has been examined. I concur with the findings of the H&P. There are no significant changes. It is appropriate to proceed with the planned procedure. Ben Jiang MD 09/07/2018 3:18 PM * Miryam Rincon MD - 09/06/2018 9:17 AM EST VASCULAR SURGERY CONSULT NOTE 09/06/18 Patient Name: Tristin Powell : 1940 MR #: [id number] Admit Date: 1070905 Nicolas Addendum As below, 78 y.o. male with a h/o PAD, HTN, HLD, CAD s/p cardiac stent (x7, 8291-8423), CABG (x3vv,2017; L [facility]), L ankle ORIF who p/w acute on chronic critical limb ischemia and claudication. Patient states he has been having claudication symptoms in bilateral lower extremities for the past 2-3 years. Patient states that although he has been active the past several months, his symptoms have progressively worsened. In June, the patient visited a esthetician/owner to evaluate his left foot, in which [...] reports daily rest pain since then. Over thepast month the patient has been unable to ambulate more than a few steps with the help of a walker,and has noticed worsening sensory and motor function. [...] discuss the utility of a femoral tibial bypass.Will discuss with Dr. Sarabia. Miryam Rincon MD PGY-2 Surgery [phone] After 5pm and on Weekends, please page [phone] (Surgery Global Product Manager site damage prevention technician) Assessment and Plan: Tristin Powell is a 78 y.o. male with a PMH of PVD s/p LLE angio with stent placement 08/09, prostatecancer, PVD, CAD, HTN and a PSH of L ankle ORIF and thriple CABG in october 2016 with L saphenous vein harvested who presented to [facility] 09/04/2018 as a transfer from [place] for second opinion regarding left lower extremity pain and discoloration Chronic LLE ischemia - Patient underwent LLE angiogram with popliteal ballooning and stent 08/09/2018 in [place], sent onaspirin and xarelto - Angiography 09/05/18 showed Infrapopliteal Artery Stenosis Left , severe ASPVD with occluded stent.No reasonable endovascular options. - STAT vein mapping bilateral LE ordered - Will obtain and review angio images with Dr. Sarabia to assess possibility of bypass based on distal target Chief Complaint/Reason for Visit: LLE pain History of Present Illness: Tristin Powell is a 78 y.o. male with history of PAD, CAD, prostate cancer presents as a transfer from [place] for concerns for left lower extremity pain and discoloration that has progressivley worsened. He has had pain and claudication symptoms for years which prompted him to to be seen 08/09 were he had ballooning and stent placement to left popliteal. He represented 1/3 with increased LLE pain that was never really helped by the stent. Pain doesn't allow him sleep. While at the [facility] he was planned to undego intervention the day of transfer but requested [facility] transfer for second opinion. Review [...] or PT pulse signals on L. Palpable poplitealpulse on the L. RLE with dopplerable DP [...] 09/05/2018 Physician(s): Ben Hahn MD Cath #: [id number] Ref. Physician: PROCEDURE(S) PERFORMED: Ultrasound- guided vascular access Aortogram: Abdominal with runoff-bilateral Peripheral Angiography Lower Extremity Angiogram - Left Clinical History: Prior CABG: Yes Peripheral Arterial Disease: Yes, , with prior peripheral CSM CONSULTANT. 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 No reasonable endovascular options. PERIPHERAL RECOMMENDATIONS: Surgical procedure - tibial bypass vs major amputation COMMENTS: No Complications ____ Equipment: Sheath(s) iGuiders 5F 10CM PINNACLE SHEATH Glassbeam 6F 45CM .038 FLEXOR CHECKFLO ANSEL1 SHEATH Wire(s) [employer] .035 X 150CM FIXED J WIRE Catheter(s) [employer] 5F MP TEMPO AQUA CATHETER Other [employer] .035 CXI ANGLED SUPPORT CATHETERS SHER VASCULAR 6F PROGLIDE CLOSURE Peripheral Angiography: Access site: Femoral Right Retrograde arterial with ultrasound guidance Non Selective: Aorta with ilio-fem runoff Selective: Tibioperoneal artery, retrograde - left See Nursing Notes for further details Signed By Ben Hahn MD On 09/05/20183:50:45 PM Ben Hahn MD ____ Ultrasound Duplex Arterial Leg Left Result Date: 09/05/2018 Non-Invasive Vascular Patient: SHERRY Bazan Med Rec#: [id number] (Age): 1940(78y) Study Date: 09/05/2018 Room#: G93 Type: Inpatient Sex: M Reading: Pierce Moreau DO, RPVI Referring: LEVY Stock Cutter: Rima Celestin RDCS, RVT Stock Cutter: Deena Pelayo RDCS RVT Procedure Info: [id number] Study Quality: Lower Arterial Duplex: adequate Diagnosis : I73.9 Peripheral vascular disease, unspecified Lower Arterial [...] PSV Name Value Units EIA 83.2 cm/sec INDUSTRIAL YARD BRAKE COUPLER 95.6 cm/sec Profunda 85.5 cm/sec SFA - prox -25 cm/sec SFA - mid -67.2 cm/sec SFA - dist 58.2 cm/sec Popliteal - dist 0 cm/sec CSM CONSULTANT 6.8 cm/sec Pre Stenosis #1 9.3 cm/sec Within Stenosis #1 67.2 cm/sec Distal Stenois #1 58.2 cm/sec Left Stent #1 Name Value Units Pre 58.2cm/sec Orig/Prox 0 cm/sec Mid 0 cm/sec Dist 0 cm/sec Distal To 6.8 cm/sec Electronically signed at 09/05/2018 11:55:51 by: Pierce Moreau DO, RPVI Xr Comparison Import Result Date: 09/04/2018 This order has been auto-finalized and does not contain a result. Esau Alejandro MD General Surgery PGY-1 Pager [phone] *After 5pm, or on weekends, page [phone]* Associated attestation - Mohsen Sarabia MD - 09/06/2018 4:46 PM EST Patient seen and examined. I have personally reviewed all pertinent labs, radiological studies and records. I have personally examined the patient and agree with resident/MINIATURE MODEL MAKER/PA assessment and plan with the following [...] tomorrow. Please resume heparin in the meantime. * Mirna Mckeon MD - 09/04/2018 8:41 PM EST [facility] History and Physical Note 09/04/18 Tristin Bazan Sherry 1940 [id number] Assessment/Plan: Tristin Powell is a 78 y.o. male with a history of PVD s/p LLE angio with stent placement 08/09, prostate cancer, PVD, CAD, HTN who presented to [facility] 09/04/2018 as a transfer from [place] for second opinion regarding left lower extremity [...] 08/09, Discharged on xeralto. Returned to the [facility] with worsening pain and discoloration of his foot. Transferred for second opinion. Exam on admitnotable for cool mottled foot. ASA and plavix [...] prostate cancer presents as a transfer from [place] for concerns for left lower extremity pain anddiscoloration that was worse for two days. HE has had pain since 08/09 were he had left foot pain and had angioplasty with stent placement to left popliteal . Noted from RN at [facility] to have no No DP pulses by palpation or doppler. Positive popliteal pulse noted.blue/reddish color for the past 2 days . Pain doesn't allow him sleep. While at the [facility] he was planned to undego intervention the day of transfer but requested [facility] transfer for second opinion. [facility] records reviewed as above Patient currently reporting no pain at the moment he states the pain comes and goes rates at a 10 when it comes better with pain medication. No chest pain, dyspnea. No BM since the 08/28. Reports lowerabdominal discomfort. No vomiting. ROS: 10 systems were [...] Tristin Powell Medication Instructions Prior to Surgery [id number] Printed on:09/04/18 9847 Medication Information Take last dose on Take [...] 222 Invalid input(s): MAG LESVIA in this encounter* Ofe Wood DPM - 10/08/2018 6:16 AM EST INTERVAL HISTORY AND PHYSICAL Patient Name: Tristin Powell Admit Date: 2060905 MR #: [id number] : 1940 The H&P has been reviewed [...] Electronically signed by the above physician 10/08/18 * Aaron Choi MD - 10/07/2018 11:56 AM EST [facility] DAILY PROGRESS NOTE Assessment and Plan 78 y.o. male patient of Flash Lovelace MD with history of PAD, CAD and HTN that presented to [place] with need for left foot partial amputation. [...] Pathology, Radiology, Cardiology, Medications and Transcriptions * Lazaro Clifton DPM - 10/04/2018 5:05 PM EST Podiatry H&P Note Chief Complaint Left foot [...] IV Vancomycin. Monitor local erythema -Radiographs pending -[facility] c'sed for medical management and preoperative clearance. -WBAT to LLE -DVT ppx lovenox. -Patient discussed with Dr. Mann who agrees with assessment and plan. Pt with mummification and drygangrene of left forefoot, patient had bypass surgery of LLE at [place] in August. Pt with some local erythema will monitor response to Abx. Plan for OR on Monday (10/08/18) for left midfoot amputation. [facility] consulted for medical management. Patient will require preoperative risk stratification. Appreciate [facility] assistance. Further plan per Dr. Mann HISTORY OF PRESENT ILLNESS Tristin Powell is a 78 y.o. 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 Pt was seen by Dr. Mann at the wound care clinic earlier and was admitted for IV antibiotics and surgical intervention. Pt recently underwent bypass surgery at [facility] and has had improved blood flow and demarcation of gangrene since then. Pt does state that he has a cardiac history of triple bypass and stenting but has had no recent cardiac events, does follow with a application integration specialist. Pt denies any active lung disease. Pt [...] ANGIOGRAM; Surgeon: Mohsen Sarabia MD; Location: [facility] NEURO OR; Service: Cardiovascular CARDIAC CATHETERIZATION Left 09/05/2018 Procedure: Angio Lower Extremity; Surgeon: Ben Hahn MD; Location: [facility] 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; Service: Cardiovascular CARDIAC SURGERY STENT PLACEMENT Medications [...] 8 (eight) hours asneeded for nausea . 09/13/18 09/20/18 Rojelio Woody [...] in clinic on 10-04-18, discussed with the resident.The note was reviewed and agree with the findings and the plan. [facility] consulted for medical management and clearance for anticipated left foot TMA and DEREK on Monday. Patient known to Dr. Sarabia, vascular surgery at [facility], and will follow with her [...] Sakshi Gamboa LSW - 09/11/2018 4:19 PM EST Consult Notes (unrecognized section and content) Associated Order(s): IP CONSULT TO CARE MANAGEMENT COMPLEX DISCHARGE Date: 09/11/2018 Time: 4:19 PM Patient Name: Tristin Powell Date of : 1940 Sex: Male DRY BOX TENDER met w/pt and daughter at bedside to discuss d/c recommendations. Daughter reports pt will be going home with 24 hour care from his 7 children. Pt requested a SNF list and will keep his options open. DRY BOX TENDER provided list and pt will notify DRY BOX TENDER with choice of SNF or home tomorrow. DRY BOX TENDER notified pt that she will not [...] Potential for Readmission Potential for Readmission: No * Flynn Mann DPM - 09/10/2018 5:03 PM EST Associated Order(s): IP CONSULT TO PODIATRY Patient Name: Tristin Powell MR #: [id number] : 1940 Physicians: Flash Lovelace MD (Family); [...] extremity. He eventually underwent intervention in the [place], [place] area in June and July of 2018. Patient, patient's family present at bedside, both say that things deteriorated clinically after the recent intervention in June 2018 with stent placed at the left lower extremity at the popliteal distribution. Patient reports progressive discoloration and pain lower extremity. He did present for second opinion. He hadangiogram with Dr. Hahn, which did show no endovascular options for repair of a stent occlusion atthe left lower extremity. Patient underwent left lower extremity peroneal femoral bypass surgery with Dr. Sarabia of vascular surgery on 09/07/2018. Patient now has progressive gangrene changes to lower extremity with violaceous coloration left lower extremity. Patient reports tenderness with directpressure, but otherwise rest pain appears to be improved per patient report. No systemic complaintsat this time. No nausea, vomiting, fever, chills, or night sweats. We were consulted for evaluationof possible amputation level determined at the left [...] ANGIOGRAM; Surgeon: Mohsen Sarabia MD; Location: [facility] NEURO OR; Service: Cardiovascular CARDIAC CATHETERIZATION Left 09/05/2018 Procedure: Angio Lower Extremity; Surgeon: Ben Hahn MD; Location: [facility] 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; Service: Cardiovascular CARDIAC SURGERY STENT PLACEMENT Family [...] PLT 234 09/10/2018 No results found for: [id number] results found for: SEDRATE No results found [...] Lower extremities: Right side pedal pulses difficult topalpate but no acute cyanosis or gangrene of the right lower extremity. No acute vascular ischemic disease of the right lower extremity. Skin is atrophic and taut, shiny, right side. Left side has more progressive ischemic changes from the ankle distal. There is multiple well-healed incisions at the bilateral legs for target distribution at the calf and thigh. There is cyanosis and gangrene at the left midfoot to forefoot as well with just the earliest of mummification gangrene occurring at thedistal aspect of the left great toe. This is not seen at the lesser digits at this time. There is asmall bullous lesion measuring 2 cm x 1 [...] artery disease involving coronary bypass graft of [place] heart without angina pectoris ARTERIOSCLEROSIS OF CORONARY [...] Electronically signed by the above physician 09/10/18 * Chrystal Aguilar S - 09/10/2018 3:28 PM EST Physical Therapy PHYSICAL THERAPY EVALUATION NOTE Skilled [...] result in limitations of gait, functional transfers, stair- climbing, safety, safety awareness and activity tolerance. These [...] Mod, Two person assist(x2 trials with FWW) Oxyacetylene Welder: Wheeled walker, 2 people, Gait belt Gait/Locomotion Gait Assistance: Mod, Two person assist Assistive Device: Wheeled walker Distance: 2 Feet(side steps at EOB ) Pattern: Step to, Over reliance on upper extremities, Forward flexed(did not tolerate weight on LLE) Exercise 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) Comments: planning to provide 20/03 assist from 7 kids Past Medical History: Diagnosis Date Avascular necrosis of bone of hip (HCC) Claudication (HCC) Herpes zoster Hyperlipidemia Hypertension Prostate cancer (HCC) Vascular disease Past Surgical History: Procedure Laterality Date ANKLE SURGERY Left BYPASS PERONEAL FEMORAL Right 09/07/2018 Procedure: BYPASS PERONEAL FEMORAL, RIGHT SAPHENOUS VEIN HARVEST, COMPLETION ANGIOGRAM; Surgeon: Mohsen Sarabia MD; Location: [facility] NEURO OR; Service: Cardiovascular CARDIAC CATHETERIZATION Left 09/05/2018 Procedure: Angio Lower Extremity; Surgeon: Ben Hahn MD; Location: [facility] 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; Service: Cardiovascular CARDIAC SURGERY STENT PLACEMENT For complete objective data, detailed plan of care and patient education refer to: PT EVALUATION flow sheet, PT TREATMENT flow sheet, patient Plan of Care, Plan of Care progress note, and Patient Education. This note stands as the current Discharge Summary upon patient discharge from the hospital or completion of Physical Therapy Plan of Care. * Marsha Hawkins OT - 09/10/2018 3:25 PM EST Occupational Therapy OCCUPATIONAL THERAPY EVALUATION NOTE Skilled [...] create performance deficits including strength, range of motion,balance, coordination, sensation, activity tolerance and pain, problem solving, sequencing, insightand safety These performance impairments limit participation in grooming, LE dressing, bathing, toileting, home management, job duties and functional mobility in the chosen occupational roles of premorbid levelindividual. The patient's co morbidities do affect patient performance in the above activities and roles. The patient's home setup is a esl instructional assistant and family/caregiver support is a esl instructional assistant for return to prior level of function. 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 provide 20/03 assist from 7 kids Past Medical History: Diagnosis Date Avascular necrosis of bone of hip (HCC) Claudication (HCC) Herpes zoster Hyperlipidemia Hypertension Prostate cancer (HCC) Vascular disease Past Surgical History: Procedure Laterality Date ANKLE SURGERY Left BYPASS PERONEAL FEMORAL Right 09/07/2018 Procedure: BYPASS PERONEAL FEMORAL, RIGHT SAPHENOUS VEIN HARVEST, COMPLETION ANGIOGRAM; Surgeon: Mohsen Sarabia MD; Location: [facility] NEURO OR; Service: Cardiovascular CARDIAC CATHETERIZATION Left 09/05/2018 Procedure: Angio Lower Extremity; Surgeon: Ben Hahn MD; Location: [facility] 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; Service: Cardiovascular CARDIAC SURGERY STENT PLACEMENT For complete objective data, detailed plan of care and patient education refer to: OT EVALUATION flow sheet, OT TREATMENT flow sheet, patient Plan of Care, Plan of Care progress note, and Patient Education. This note stands as the current Discharge Summary upon patient discharge from the hospital or completion of Occupational Therapy Plan of Care. * Jose Pino MD - 09/07/2018 3:08 PM EST Associated Order(s): IP CONSULT TO PAIN TEAM ANCILLARY Original consult done by Dr. Pang yesterday. Patient seen in follow up by TECHNOLOGY SERVICES MANAGER. See progress note. * Ben Pang, DO - 09/06/2018 4:26 PM EST Associated Order(s): IP CONSULT TO PAIN TEAM ANCILLARY CONSULT NOTE Patient Name: Tristin Powell Admit Date: 1070905 MR #: [id number] : 1940 Consulting Physicians: [facility] Pain Service Assessment and Plan: Pain of left lower extremity Assessment & Plan . The patient did note that he becomes somewhat fatigued after taking medication, but he has not really been sleeping well. At this point, I think would be appropriate, since he has a plan for the operating room tomorrow, to put him on an opioid naive CHIPS SCREEN TENDER. We will continue to monitor. I did talk extensively with the family about CHIPS SCREEN TENDER safety and only allowing him to push the button. He does have quite a doting family and they all seem to be on board, understanding the safety concerns that this might present in the event that the patient is to sleep and someone is to press the button for him. We would see how his pain syndrome develops after surgery, but CHIPS SCREEN TENDER is probably the appropriate treatment. I would [...] weeks. He states that the medications that hehas been using, the oxycodone, has helped, does make him a little drowsy, but does not seem to lastmore than an hour or two. He denies any fevers or chills. He denies any other symptoms or complaints with the exception that his foot is quite painful. It braxton at times, it does have some deepening o f the purple hue of his skin on his toes and has, through the workup, been found to have an ischemic foot. He is planned for the operating room tomorrow. He had issues with constipation until last night, after taking opioids. This is something we will continue to watch with respect to having him charles bowel regimen. History: Past Medical History: Diagnosis [...] of time to help manage acute pain * Miryam Rincon MD - 09/06/2018 9:17 AM EST Associated Order(s): IP CONSULT TO VASCULAR SURGERY VASCULAR SURGERY CONSULT NOTE 09/06/18 Patient Name: Tristin Powell : 1940 MR #: [id number] Admit Date: 1070905 Nicolas Addendum As below, 78 y.o. male with a h/o PAD, HTN, HLD, CAD s/p cardiac stent (x7, [id number]), CABG (x3vv,2017; [facility]), L ankle ORIF who p/w acute on chronic critical limb ischemia and claudication. Patient states he has been having claudication symptoms in bilateral lower extremities for the past 2-3 years. Patient states that although he has been active the past several months, his symptoms have progressively worsened. In June, the patient visited a esthetician/owner to evaluate his left foot, in which [...] reports daily rest pain since then. Over thepast month the patient has been unable to ambulate more than a few steps with the help of a walker,and has noticed worsening sensory and motor function. [...] discuss the utility of a femoral tibial bypass.Will discuss with Dr. Sarabia. Miryam Rincon MD PGY-2 Surgery [phone] After 5pm and on Weekends, please page [phone] (Surgery Global Product Manager site damage prevention technician) Assessment and Plan: Tristin Powell is a 78 y.o. male with a PMH of PVD s/p LLE angio with stent placement 08/09, prostatecancer, PVD, CAD, HTN and a PSH of L ankle ORIF and thriple CABG in october 2016 with L saphenous vein harvested who presented to [facility] 09/04/2018 as a transfer from [place] for second opinion regarding left lower extremity pain and discoloration Chronic LLE ischemia - Patient underwent LLE angiogram with popliteal ballooning and stent 08/09/2018 in [place], sent onaspirin and xarelto - Angiography 09/05/18 showed Infrapopliteal Artery Stenosis Left , severe ASPVD with occluded stent.No reasonable endovascular options. - STAT vein mapping bilateral LE ordered - Will obtain and review angio images with Dr. Sarabia to assess possibility of bypass based on distal target Chief Complaint/Reason for Visit: LLE pain History of Present Illness: Tristin Powell is a 78 y.o. male with history of PAD, CAD, prostate cancer presents as a transfer from [place] for concerns for left lower extremity pain and discoloration that has progressivley worsened. He has had pain and claudication symptoms for years which prompted him to to be seen 08/09 were he had ballooning and stent placement to left popliteal. He represented 1/3 with increased LLE pain that was never really helped by the stent. Pain doesn't allow him sleep. While at the [facility] he was planned to undego intervention the day of transfer but requested [facility] transfer for second opinion. Review [...] heparin infusion (weight based dosing) Stopped (09/05/18 4092) sodium chloride 0.9 % 20 mL/hr (09/06/18 [...] or PT pulse signals on L. Palpable poplitealpulse on the L. RLE with dopplerable DP [...] 09/05/2018 Physician(s): Ben Hahn MD Cath #: [id number] Ref. Physician: PROCEDURE(S) PERFORMED: Ultrasound- guided vascular access Aortogram: Abdominal with runoff-bilateral Peripheral Angiography Lower Extremity Angiogram - Left Clinical History: Prior CABG: Yes Peripheral Arterial Disease: Yes, , with prior peripheral CSM CONSULTANT. 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 No reasonable endovascular options. PERIPHERAL RECOMMENDATIONS: Surgical procedure - tibial bypass vs major amputation COMMENTS: No Complications ____ Equipment: Sheath(s) iGuiders 5F 10CM PINNACLE SHEATH Glassbeam 6F 45CM .038 FLEXOR CHECKFLO ANSEL1 SHEATH Wire(s) [employer] .035 X 150CM FIXED J WIRE Catheter(s) [employer] 5F MP TEMPO AQUA CATHETER Other [employer] .035 CXI ANGLED SUPPORT CATHETERS SHER VASCULAR 6F PROGLIDE CLOSURE Peripheral Angiography: Access site: Femoral Right Retrograde arterial with ultrasound guidance Non Selective: Aorta with ilio-fem runoff Selective: Tibioperoneal artery, retrograde - left See Nursing Notes for further details Signed By Ben Hahn MD On 09/05/20183:50:45 PM Ben Hahn MD ____ Ultrasound Duplex Arterial Leg Left Result Date: 09/05/2018 Non-Invasive Vascular Patient: SHERRY Jones Rec#: [id number] (Age): 1940(78y) Study Date: 09/05/2018 Room#: G93 Type: Inpatient Sex: M Reading: Pierce Moreau DO RPVI Referring: LEVY Stock Cutter: Rima Celestin RD, RVT Stock Cutter: Deena Pelayo RDCS RVT Procedure Info: [id number] Study Quality: Lower Arterial Duplex: adequate Diagnosis : I73.9 Peripheral vascular disease, unspecified Lower Arterial [...] PSV Name Value Units EIA 83.2 cm/sec INDUSTRIAL YARD BRAKE COUPLER 95.6 cm/sec Profunda 85.5 cm/sec SFA - prox -25 cm/sec SFA - mid -67.2 cm/sec SFA - dist 58.2 cm/sec Popliteal - dist 0 cm/sec CSM CONSULTANT 6.8 cm/sec Pre Stenosis #1 9.3 cm/sec Within Stenosis #1 67.2 cm/sec Distal Stenois #1 58.2 cm/sec Left Stent #1 Name Value Units Pre 58.2cm/sec Orig/Prox 0 cm/sec Mid 0 cm/sec Dist 0 cm/sec Distal To 6.8 cm/sec Electronically signed at 09/05/2018 11:55:51 by: Pierce Moreau DO, RPVI Xr Comparison Import Result Date: 09/04/2018 This order has been auto-finalized and does not contain a result. Esau Alejandro MD General Surgery PGY-1 Pager [phone] *After 5pm, or on weekends, page [phone]* Associated attestation - Mohsen Sarabia MD - 09/06/2018 4:46 PM EST Patient seen and examined. I have personally reviewed all pertinent labs, radiological studies and records. I have personally examined the patient and agree with resident/MINIATURE MODEL MAKER/PA assessment and plan with the following [...] tomorrow. Please resume heparin in the meantime. * Yasmeen Diaz CNP - 09/05/2018 7:25 AM EST Associated Order(s): IP CONSULT TO CARDIOLOGY [facility] Name: Tristin Powell Age: 78 y.o. Date: September 05, 2018 ASSESSMENT & PLAN: Critical lower limb ischemia Assessment & Plan Pt s/p LLE critical limb ischemia [place] class 4 rest pain with distal discoloration to his toes. Pt is s/p L pop angioplasty with stent placement 08/09 at [facility] in [place], [place]. Ptwas placed on Xarelto and ASA. [...] artery disease involving coronary bypass graft of [place] heart without angina pectoris Assessment & Plan [...] pop angioplasty with stent placement 08/09 at [facility] in [place] with Dr. Vogt. Pt was placed on Xarelto and ASA. Pt represented to [facility] 08/30 with increased LLE pain. Pt was scheduled to have a vascular surgical procedure at [facility] in [place] and requested to be tx to [facility]. PAST MEDICAL HISTORY: Past Medical [...] No palpitations, chest pain/pressure Respiratory No SOB, LMA, wheezing, cough GI No N/V/D/C or abdominal [...] to contact me. Respectfully, Yasmeen Diaz, MSN, MINIATURE MODEL MAKER-C [facility] Associated attestation - Campos Guerra MD - 09/05/2018 11:01 AM EST [facility] Vascular Staff: I saw and evaluated the patient with vascular team during inpatient rounds. I discussed the harper findings and I agree with assessment and plan as documented by our vascular TECHNOLOGY SERVICES MANAGER. Mr. Tristin Powell is a 78 y.o. with male left lower extremity acute on chronic limb ischemia ([place] grade 1 viable limb): Patient is a status post recent revascularization at an outside hospital about 6 weeks ago (SFA stenting in the setting of lifestyle limiting claudication and rest pain). Arterial duplex of the left lower extremity obtained today (I reviewed all images), demonstrate distal SFA occluded stent, popliteal artery occlusion along with infrapopliteal tibioperoneal occlusionwith minimal collateral circulation. Patient presented with worsening [...] you for consulting vascular. Raulito Guerra MD [facility] Vascular Medicine [facility] 09/05/18 10:54 AM in this encounter* Monica Moore, PT - 10/10/2018 10:30 AM EST Physical Therapy PHYSICAL THERAPY EVALUATION NOTE Skilled [...] assistance Transfers Sit to Stand: Contact guard Oxyacetylene Welder: Wheeled walker Gait/Locomotion Gait Assistance: Contact guard Assistive Device: Wheeled walker Distance: 5 Feet Pattern: L decreased step length Weight Bearing Status: Able to maintain, Non-weight bearing Home Living Type of Home: House Home Layout: One level Home Equipment: Walker, Wheeled Walker, Wheelchair-electric Prior Level of Function Level of [place]: Independent with ADLs and functional transfers, Independent with homemaking with ambulation Lives With: Alone Receives Help From: Family 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 Procedure: LEFT MIDFOOT AMPUTATION; Surgeon: Flynn Mann DPM; Location: [facility] OR; Service: Podiatry ANKLE SURGERY Left BYPASS PERONEAL FEMORAL Right 09/07/2018 Procedure: BYPASS PERONEAL FEMORAL, RIGHT SAPHENOUS VEIN HARVEST, COMPLETION ANGIOGRAM; Surgeon: Mohsen Sarabia MD; Location: [facility] NEURO OR; Service: Cardiovascular CARDIAC CATHETERIZATION Left 09/05/2018 Procedure: Angio Lower Extremity; Surgeon: Ben Hahn MD; Location: [facility] 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; Service: Cardiovascular CARDIAC SURGERY 2017 triple bypass [...] of Physical Therapy Plan of Care. * Ruth Corrigan, OT - 10/10/2018 10:01 AM EST Occupational Therapy OCCUPATIONAL THERAPY EVALUATION NOTE Skilled [...] the chosen occupational roles of premorbid level individual,parent, spouse, family member and community member. The patient's co morbidities do affect patient performance in the above activities and roles. The patient's home setup is a esl instructional assistant and family/caregiver support is a esl instructional assistant for return to prior level of function. The patient's compliance is a esl instructional assistant and awareness of own capacity and performance is a esl instructional assistant to return to prior level of function. [...] Wheelchair-electric Prior Level of Function Level of [place]: Independent with ADLs and functional transfers, Independent with homemaking with ambulation Lives With: Alone Receives Help From: Family 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 Procedure: LEFT MIDFOOT AMPUTATION; Surgeon: Flynn Mann DPM; Location: [facility] OR; Service: Podiatry ANKLE SURGERY Left BYPASS PERONEAL FEMORAL Right 09/07/2018 Procedure: BYPASS PERONEAL FEMORAL, RIGHT SAPHENOUS VEIN HARVEST, COMPLETION ANGIOGRAM; Surgeon: Mohsen Sarabia MD; Location: [facility] NEURO OR; Service: Cardiovascular CARDIAC CATHETERIZATION Left 09/05/2018 Procedure: Angio Lower Extremity; Surgeon: Ben Hahn MD; Location: [facility] 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; Service: Cardiovascular CARDIAC SURGERY 2017 triple bypass [...] of Occupational Therapy Plan of Care. * Aurelia Anand CNP - 10/10/2018 6:49 AM EST Associated Order(s): IP CONSULT TO GASTROENTEROLOGY CONSULT NOTE Patient Name: Tristin Powell Admit Date: [id number] MR #: [id number] : 1940 Physicians: Flash Lovelace MD (Family); [...] at which time he was in [facility]. At that time he was [...] MIDFOOT AMPUTATION; Surgeon: Flynn Mann DPM; Location: [facility] OR; Service: Podiatry ANKLE SURGERY Left BYPASS PERONEAL FEMORAL Right 09/07/2018 Procedure: BYPASS PERONEAL FEMORAL, RIGHT SAPHENOUS VEIN HARVEST, COMPLETION ANGIOGRAM; Surgeon: Mohsen Sarabia MD; Location: [facility] NEURO OR; Service: Cardiovascular CARDIAC CATHETERIZATION Left 09/05/2018 Procedure: Angio Lower Extremity; Surgeon: Ben Hahn MD; Location: [facility] 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; Service: Cardiovascular CARDIAC SURGERY 2017 triple bypass [...] times a day (for 7 days) . 09/29/18Yes Historical Provider, clopidogrel (PLAVIX) 75 mg tablet [...] 8 (eight) hours asneeded for nausea . 09/13/18 09/13/19 Yes Rojelio Woody MD oxyCODONE-acetaminophen (PERCOCET) 5-325 mg per tablet Take 1 tablet by mouth every 6 (six) hours as needed for pain ( . Yes Historical ProviderMD oxymetazoline (AFRIN) 0.05 % nasal spray Instill [...] Surgery, Radiation History: YES Type of Encounter: InitialFINDINGS: Status post median sternotomy. Cardiac and mediastinal contours enlarged but unchanged. Hyperinflated lungs, with prominence of the interstitial lung markings. There are increased bibasilarpulmonary opacities. No significant pleural effusion within visualized lungs. Left costophrenic angle is partially imaged. No evidence of pneumothorax. No evidence of acute osseous abnormalities. Increased bibasilar pulmonary opacities may represent atelectasis, pneumonia, and/or aspiration. Recommend radiographic follow-up to complete resolution. Findings suggestive of underlying COPD. YASHIRA/dominic Workstation ID: [id number] Doppler Ankle/brachial Index Result Date: 09/10/2018 Non-Invasive Vascular Patient: SHERRY MENDOZA Hortensia [facility] Rec#: [id number] (Age): 1940(78y) Study Date: 09/10/2018 Room#: 8506 Type: Inpatient Sex: M Reading: [place] Reading: Ben Hahn MD, RPVI Referring: Esau Alejandro her: JuliusAndre la RDCS/RVT Procedure Info: [id number] Study Quality: Lower Arterial Doppler: adequate __ [...] 09/10/2018 17:30:46 by: Ben Hahn MD, VI Echocardiogram Complete Result Date: 10/08/2018 REPORT Patient: SHERRY Carmona Rec#: [id number] (Age): 1940(78y) Height: 188(cm)/73(in) Study Date: 10/08/2018 Weight: 99(kg)/218(lbs) Room#: [facility] BSA: [id number] Type: Inpatient Loc: [facility] Echo Lab Sex: M Reading: Emmanuel Connor MD F Referring: AARON CHOI DANIEL Patrol Driver: Geovani Matson RD, T History: Hyperlipidemia Hypertension. Valvular disease. Diagnosis: ICD-10-PCS Encounter for preprocedural cardiovascular examination (Z01.810) Cardiac Complications, not classified (997.1) CPT Code(s): ECHO COMPLETE W/ DOPPLER (61322) HCPCS Code C8923 Echo Full w/ contrast. [...] systolic function is moderately reduced. There is mildaortic regurgitation. There is mild mitral regurgitation. Findings Reason For Study: Pre-op cardiacevaluation. Left Ventricle: The left ventricular chamber size [...] sclerosis is present. There is no hemodynamically signif icant stenosis. There is mild aortic regurgitation. Mitral [...] The pulmonic valve appears grossly normal in structureand function. There is mild pulmonic regurgitation. Pericardium: [...] none LV E:e' lateral ratio 14.5 ratio noneAortic Valve Name Value Normal Range AV Vmax 1.01 m/sec (1 - 1.7) AV peak gradient 4.08 mmHg (Less Than 36) LVOT diameter 2.2 cm (1.7 - 2.5) LVOT Vmax 0.85 m/sec (0.7 - 1.1) LVOT peak gradient 3 mmHgnone DOI (Vmax) 0.84 ratio none RAMIREZ (continuity [...] Vmax 0.9 m/sec (0.6 - 0.9) PV p eak gradient 3.23 mmHg none MA end-diastolic Vmax 1.41 m/sec none PA end- diastolic pressure 12.95 mmHg none PV acceleration time 77 msec none Electronically Signed at 10/08/2018 17:26:05 by: NicholasJ. Geeta MD [facility] Xr Ankle Left 3+ Views (standard) Result [...] the distal fibula. No evidence of complication. Fragmen tation of the distal tip of the medial malleolus, likely sequela of remote injury. Joint spaces arepreserved. No aggressive osseous lesions or bony demineralization. Extensive vascular calcifications. No acute osseous abnormalities identified. Status post remote ORIF of the distal fibula. Extensive vascular calcifications. The New Daily/Fixetude Workstation ID: [id number] Xr Foot Left 2 Views Result Date: 10/08/2018 EXAMINATION: 2 XRAY VIEWS OF THE LEFT FOOT 10/08/2018 11:54 am COMPARISON: 10/04/2018. HISTORY: ORDERING SYSTEM PROVIDED HISTORY: post-op foot / ankle; TECHNOLOGIST PROVIDED HISTORY: Reason for Exam: post-op foot / ankle Illness/Other Acuity: Unknown Cancer History: unk Surgery, Radiation History: YE S Type of Encounter: Ongoing Additional signs and [...] articulations. Surgical drain present. VK/mll Workstation ID: [id number] Xr Foot Left 3+ Views (standard) Result Date: 10/06/2018 EXAMINATION: 3 XRAY VIEWS OF THE LEFT FOOT 10/04/2018 3:52 pm COMPARISON: 09/20/2018. HISTORY: ORDERING SYSTEM PROVIDED HISTORY: Left foot gangrene; TECHNOLOGIST PROVIDED HISTORY: Reason for Exam: Leftfoot gangrene Illness/Other Acuity: Unknown Cancer History: unk [...] the distal fibula. No evidence of complication. Fragmen tation of the distal tip of the medial malleolus, likely sequela of remote injury. Joint spaces arepreserved. No aggressive osseous lesions or bony demineralization. Extensive vascular calcifications. No acute osseous abnormalities identified. Status post remote ORIF of the distal fibula. Extensive vascular calcifications. WTW/vrs Workstation ID: [id number] Assessment Detail: Associated attestation - Ben Jensen MD - 10/10/2018 1:16 PM EST Pt. seen and examined by myself. I agree with the assessment and plan of the nurse practioner. Dropin Hb in postoperative setting x 2 requiring transfusions. No signs of acutre gib. Gastrocult+ which is non-specific. He is on ASA/Plavix at home. Plan EGD today to eval further. * Aaron Choi MD - 10/05/2018 10:27 AM EST Associated Order(s): [facility]SULT TO [facility] CONSULTATION NOTE Patient Name: Tristin Powell : 1940 MR #: [id number] Admit Date: 2060905 Physicians: Flash Lovelace MD (Family); Flynn Mann, * (Referring) Tristin Powell is a 78 y.o. male patient of Flash Lovelace MD with history of PAD, CAD and HTN that presented to [facility] [place] with need for left foot partial amputation. [...] Date: TBD Outpatient Testing: none Chief Complaint: [facility] consulted by Flynn Mann DPM for medical management History of Present Illness: This is a 78 y/o male with past medical history of PAD, CAD and HTN that presented to [place] with need for left foot partial amputation. According to pre- op records, patient has history of critical limb [...] ANGIOGRAM; Surgeon: Mohsen Sarabia MD; Location: [facility] NEURO OR; Service: Cardiovascular CARDIAC CATHETERIZATION Left 09/05/2018 Procedure: Angio Lower Extremity; Surgeon: Ben Hahn MD; Location: [facility] 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; Service: Cardiovascular CARDIAC SURGERY STENT PLACEMENT Family [...] discharge date is: day after tomorrow (10/07/2018) * Angela Thompson RN - 10/05/2018 6:48 AM EST COMPLEX DISCHARGE Date: 10/05/2018 Time: 6:48 AM Patient Name: Tristin Powell Date of : 1940 Sex: Male Patient Information Primary Caregiver: Self Accompanied by/Relationship: none Christianity/Cultural Factors: none Legal Documentation Advance Directives: (none) Resuscitation Status: Resuscitate Resources Financial Resources: Other (Comment)([employer] Medicare insurance confirmed) Community Resources: Other (Comment)(PCP Dr. Lovelace [phone]) Discharge Plan Shared UM/CC and RN Source of Information: Patient Contact Phone Number: emergency contact Amina Zaidi p:[phone] Living Arrangements: Alone Support Systems: Family members Functional Status: Independent Type of Residence: Private residence(1 floor plan) Prior to Admission Home Care Services: Yes Type of Current Home Care Services: Home health care Current Agency Name: [facility] Current Home Equipment: Walker, Wheeled walker, Toilet seat recycle coordinator, Tub/Shower chair Insurance Coverage for Prescriptions: Yes [...] needs HH services for discharge. [facility] kristy Jeanette ph# [phone] / fx# [phone] Called agency and left a message requesting a return phone call to [phone] to confirm services. Faxed HH bundle to [...] Associated Order(s): ECG 12-LEAD ED PROVIDER NOTE [facility] EMERGENCY DEPARTMENT NAME: Tristin Powell AGE: 78 y.o. : 1940 VISIT DATE: 09/04/2018 CSN: [id number] PCP: Flash Lovelace MD Chief Complaint Patient presents with Blood Clot HPI Patient transferred from [facility] for left leg peripheral arterial disease and claudication. Known peripheral arterial disease in bilateral lower extremities, told was 50% in the right leg andmost of the left leg. Had significant foot pain on August 09, with angioplasty and stent placement at that time in the left popliteal. Started on Xarelto and aspirin. Patient reports his pain neverreally got significantly better but has been significantly worse now for the last 2 weeks, and moreso in the last several days. Return to the outside facility on August 30, with significant worsening foot and leg pain, no palpable pulses. Had been admitted to the hospital, started on heparin drip.Foot is documented to have been cold, mottled vertically over the last 2 days. However he had been a mbulating on the foot, can move his toe, states that he has some tingling but sensation is still there. Has been taking Dilaudid and Percocet for pain. Was scheduled for surgery today, however immediately prior to the patient and the family requested to be transferred to [facility] for a second opinion. Accepted by the medicine service with cardiology consulting to the ED. Patient does report his pain had been fairly well controlled with his culmination medication but isreporting some increasing pain. Worse with movement. Largely [...] to person, place, and time. He appears well-developed. HENT: Head: Atraumatic. Mouth/Throat: Oropharynx is clear [...] call required?: No Tiana Em DO 09/04/182027 * Nasreen Pickett RN - 09/04/2018 7:26 PM EST Patient resting comfortably on cot. Reports he has hx of claudication bilateral lower ext. Patient reports the pain in LLE has been going on Wks. Patient reports he did have surgery on this extremityin the past. This RN unable to obtain doppler pedal, pt pulses. LLE is cool red/blue color, patientreports numb * Maude Rai RN - 09/04/2018 7:05 PM EST Referral note: Call from Dann Chairez MD [phone] Contact Role: Referring Provider Entered By: VAN Bailey Dr states patient admitted 08/30 for left claudication and threatened limb. States patient was seen 08/09 for left foot pain and had angioplasty with stent placement to left popliteal. Pt startedon Xarelto and ASA and discharged. Returned 08/30 for increased left foot and leg pain. No pulses. Ptwas to have gone for vascular procedure today, but patient and family are now requesting transfer to a larger hospital and are requesting [facility]. Call to VAN Reynolds [phone] Contact Role: Nurse Entered By: VAN Bailey [...] and has been ambulatory at home. Heparin dripinfusing. Pt taking Dilaudid and Percocet around the clock per RN. No BM for 6 days. * Ann Weston RN - 09/04/2018 7:04 PM EST Bed: 93 Expected date: 09/04/18 Expected time: 6:54 PM Means of arrival: Ambulance Comments: Life Support/ referral SHERRY/ Veitinger in this encounter Plan of Care - China Stern RN - 09/11/2018 1:20 AM EST Miscellaneous Notes (unrecog nized section and content) Partially Met Pain Manage acute pain 09/11/2018 0116 - Partially Met by China Stern RN Note Patient complaints of left foot pain. Burning/sharp/intermittent. Patient with PVD history, surgery09/07. PRN pain medications given per order. Foot [...] incisions. Temperature WNL. Will continue to monitor. * Op Note - Mohsen Sarabia MD - 09/09/2018 2:42 PM EST SHERRY TRISTIN Bazan CONCHIS [id number] 1940 DATE 09/07/2018 OPERATIVE REPORT SURGEON MOHSEN SARABIA MD OPERATIONS PROJECT MANAGER BEN JIANG MD PREOPERATIVE DIAGNOSIS Subacute limb ischemia of the left lower extremity. POSTOPERATIVE DIAGNOSIS Subacute limb ischemia of the left lower extremity. PROCEDURE PERFORMED Left femoral to peroneal bypass using contralateral reverse greater saphenous vein. OPERATIONS PROJECT MANAGER There was no qualified resident available to [...] cc. MOHSEN SARABIA MD D 09/09/2018 10:46 [id number] T 09/09/2018 14:36 JPW/MODL * Brief Op Note - Mohsen Sarabia MD - 09/08/2018 1:11 AM EST Brief Post Operative Note Patient Name: Tristin Powell : 1940 (78 y.o.) Date of Service: 09/04/2018 - 09/08/2018 CSN: [id number] Procedure(s): BYPASS PERONEAL FEMORAL, RIGHT SAPHENOUS VEIN HARVEST, COMPLETION ANGIOGRAM Pre-Operative Diagnoses: * acute left lower extremity ischemia Post-Operative Diagnoses: * Same as Pre-Op Diagnosis Surgeon(s) and Role: * Mohsen Sarabia MD - Primary * Ben Jiang MD - Assisting Anesthesiologist: Natalie Vieira MD; Andrew Topete MD Chicken Catcher: Megan Arguelles RN; Odessa Cuellar RN Chicken Catcher Relief: Sakshi Silvestre RN; Ben Calvillo RN; Niesha Levin RN Scrub Person: ST Ricki Scrub Person Assist: ST Patirce Nurse Float: Andrew Pappas RN Operative findings: L Fem to peroneal Bypass using contralateral GSV, dopp peroneal and PT at ankleat conclusion Intra and immediate post-operative complications: none Type of anesthesia used: General Estimated blood loss: 150 mL Estimated urine output: 700 mL Specimen(s): * No specimens in log * Implant(s): Implant Name Type Inv. Item Serial No. Evaporator Lot No. LRB No. Used Action HEMOSTAT 2 X 4IN SURGICEL FIBRILLAR - [id number] HEMOSTAT 2 X 4IN SURGICEL FIBRILLAR ETHICON [id number] Left 1 Implanted Drain(s): Urethral Catheter Non-latex;Straight-tip [...] AM Mohsen Sarabia MD 09/08/2018 1:11 AM * Quick Note - Rebecca Harry RN - 09/07/2018 4:12 PM EST 13ml of hydromorphone wasted.Waste witnessed by Carson Gonzalez(Charged nurse). * [facility] IP Rehab - Leeanna Melgoza OT - 09/07/2018 9:28 AM EST OCCUPATIONAL THERAPY VISIT VARIANCE NOTE Attempted to see patient at this time, but unable secondary to: OT Visit [facility]: Awaiting MedicalClearance (Pt is surgery today for bypass ischemic foot). Will follow up as appropriate. * [facility] - Kofi Rowe, PT - 09/07/2018 8:27 AM EST PHYSICAL THERAPY VISIT VARIANCE NOTE Attempted to see patient at this time, but unable secondary to: PT Visit [facility]: Awaiting MedicalClearance (plan for OR for LE bypass). Will follow up as appropriate. * Assessment & Plan Note - Maranda Meléndez, TECHNOLOGY SERVICES MANAGER - 09/06/2018 4:26 PM EST Associated Problem(s): Pain of left lower extremity -Presented to [facility] 09/04/2018 as a transfer from [place] for second opinion regarding left lower extremity [...] in pain -Reports pain is uncontrolled with CHIPS SCREEN TENDER Dilaudid pump, and pain does not decrease [...] paradise Fernandez RN -Please call with questions * [facility] - Stacie Almaraz, OT - 09/06/2018 10:41 AM EST OCCUPATIONAL THERAPY VISIT VARIANCE NOTE Attempted to see patient at this time, but unable secondary to: OT Visit [facility]: Unable to Participate (await ischemic limb work-up). Will follow up as appropriate. * Quick Note - Yasmeen Diaz CNP - 09/06/2018 9:19 AM EST Please stop heparin * Sign Off Note - Yasmeen Diaz CNP - 09/06/2018 7:41 AM EST Peripheral Vascular Sign-Off Conditions Treated: Critical Limb Ischemia (PAD) Procedures Performed (This Admission): Diagnostic angiogram. Recommended Discharge Medications: ASA 81 mg daily clopidogrel 75 mg daily heparin Discharge Plan/Procedure: CTS consult for tibial bypass Follow-up Appointments: CTS consult for tibial bypass Please call [phone] for questions (available 20/03) * Quick Note - Yasmeen Diaz CNP - 09/05/2018 9:46 AM EST Discussed pt with Dr. Guerra, jayashree pt for a LLE angiogram due to occluded LLE stent. Consent signed and placed at Charge nurses desk. Risks and benefits reviewed with pt. Pt agrees to proceed with scheduled procedure * Assessment & Plan Note - Yasmeen Diaz CNP - 09/05/2018 8:48 AM EST Associated Problem(s): Class 1 obesity with body [...] per week) for a goal BMI <30. * Assessment & Plan Note - Yasmeen Diaz CNP - 09/05/2018 8:47 AM EST Associated Problem(s): Essential hypertension Patient with history of hypertension. Blood pressure at this time 132/62. Plan: Continue medications as prescribed. * Assessment & Plan Note - Yasmeen Diaz CNP - 09/05/2018 8:46 AM EST Associated Problem(s): Hypercholesteremia Patient with history of hypercholesteremia. Plan: Continue high intensity statin medication Risk factor modification. * Assessment & Plan Note - Yasmeen Diaz CNP - 09/05/2018 8:43 AM EST Associated Problem(s): Coronary artery disease involving coronary bypass graft of [place] heart without angina pectoris Patient with remote coronary artery bypass grafting to 3 vessels. Patient denies chest pain at thistime. * Assessment & Plan Note - Yasmeen Diaz CNP - 09/05/2018 7:26 AM EST Associated Problem(s): Critical lower limb ischemia Pt s/p LLE angiogram with Dr Hahn who feels that the pt has no further endovascular options. He has consulted Dr. Sarabia for a possible tibial bypass. Pt s/p LLE critical limb ischemia [place] class 4 rest pain with distal discoloration to his toes. Pt is s/p L pop angioplasty with stent placement 08/09 at [facility] in [place], [place]. Ptwas placed on Xarelto and ASA. [...] statin medication. Will sign off in this encounter* Quick Note - Kristi Grossman RN - 10/12/2018 6:58 PM EST Reviewed AVS and [facility] opioid handout with patient and answered all questions. Provide paperwork packet including paper prescriptions for percocet, lovenox and doxcycline. Helped patient dress and packall belongings. Wheeled patient and all belongings to front entrance [facility] to daughter's vehicle. [facility] [place] * Gary Nelson - Kristi Grossman RN - 10/12/2018 6:33 PM EST Called report to Chelsea Salinas RN at the [facility] [place]. * Plan of Care - Kristi Grossman RN - 10/12/2018 5:50 PM EST Patient to follow-up GI outpatient. * Plan of Care - Kristi Grossman RN - 10/12/2018 9:39 AM EST Patients pain well controlled on percocet. Patient having bowel movements and voiding spontaneously. * Quick Note - Daiaan Treviño CNP - 10/10/2018 2:35 PM EST S/P EGD 10/10-Z-line irregular, at the gastroesophageal [...] - Will sign off, call if needed. * Plan of Care - Taco Stock RN - 10/09/2018 8:29 PM EST POC went over and updated, will continue to monitor. * Quick Note - Flynn Mann DPM - 10/09/2018 8:01 AM EST The patient was seen and evaluated at the bedside, discussed with the resident. The note was reviewed and agree with the findings and the plan. Patient is s/p day #1 left midfoot amputation and DEREK with closed suction drain. Will plan to pull drain today. PT/OT to evaluate for SNF upon discharge. Will follow with Dr. Mann as out-patient at [facility] [place] at [phone] next 10-18-18. Flynn Mann DPM, FACFAS Electronically signed by the above physician 10/09/18 * Plan of Care - Taco Stock RN - 10/08/2018 6:43 PM EST POC went over and updated, will continue to monitor. * Op Note - Flynn Mann DPM - 10/08/2018 9:20 AM EST TRISTIN POWELL [id number] 1940 DATE 10/08/2018 OPERATIVE REPORT SURGEON FLYNN MANN DPM OPERATIONS PROJECT MANAGER OFE WOOD DPM, RESIDENT ANESTHESIOLOGIST MACHELLE SARABIA MD PREOPERATIVE DIAGNOSIS Left foot gangrene. POSTOPERATIVE DIAGNOSIS Left foot gangrene. PROCEDURES 1. Left midfoot amputation at [facility] level 2. Left Tendo-Achilles lengthening 3. [...] the 4th and 5th tarsometatarsal joint. Once themidfoot was removed, the cuboid was then sectioned [...] RESIDENT FLYNN MANN DPM D 10/08/2018 08:53 [id number] T 10/08/2018 09:15 /MODL * Brief Op Note - Ofe Wood DPM - 10/08/2018 8:37 AM EST Brief Post Operative Note Patient Name: Tristin Powell : 1940 (78 y.o.) Date of Service: 10/08/2018 CSN: [id number] Procedure(s): 1. TENDO ACHILLES LENGTHENING, LEFT 2. LEFT MIDFOOT AMPUTATION Pre-Operative Diagnoses: * LEFT FOOT GANGRENE Post-Operative Diagnoses: * SAME Surgeon(s) and Role: * Flynn Mann DPM - Primary * Ofe Wood DPM - Resident - Assisting Anesthesiologist: Machelle Sarabia MD EXPLOSIVE ORDNANCE TECHNICIAN: Nikia Mcdermott CRNA Chicken Catcher: Sussy Hoskins RN Relief Scrub: Angela Qureshi RN Scrub Person: ST Gisselle Anesthesia Specialist: Gt Zaldivar Operative findings: Dry gangrene to left forefoot Intra and immediate post-operative complications: none Type of anesthesia used: General Estimated blood loss: 150 mL Estimated urine output: 0 mL Specimen(s): ID Type Source Tests Collected by Time Destination A : Left foot to pathology Tissue Amputation, Foot, Left TISSUE EXAM TIFFANY BobM 10/08/2018 0743 Implant(s): * No implants in [...] (Active) Ofe Wood DPM 10/08/2018 8:37 AM * Plan of Care - Taco Stock RN - 10/07/2018 8:48 PM EST POC went over and updated, will continue to monitor. * Quick Note - Abi Robles TECHNOLOGIST - 10/06/2018 6:42 AM EST Patient was labeled as pre-op but transport [...] MD Primary Care Provider Active Haven Malcolm [facility] ProviderActiveTeam MemberRelationshipSpecialty Start DateEnd Date Flash Lovelace MD [address] [place] [address] [facility]CP - [facility] Mlunckhq76/4/18Team MemberRelationshipSpecialtyStart DateEnd Date Flash Lovelace MD [address] [place] [address] PCP - Generalmily Dzloehkh47/4/18Team MemberRelationshipSpecialtyStart DateEnd Date Flash Lovelace MD [address] [place] [address] PCP - GeneralFamily Medicine09/04/18Team MemberRelationshipSpecialtyStart DateEnd Date Flash Lovelace MD [address] [place] [address] PCP - GeneralFamily Nrslncxn16/4/18Team MemberRelationshipSpecialtyStart DateEnd Date Flash Lovelace MD [address] [place] [address] PCP - GeneralFamily Medicine09/04/18Team MemberRelationshipSpecialtyStart DateEnd Date Flash Lovelace MD [address] [place] [address] PCP - GeneralFamily Medicine09/04/18Team MemberRelationshipSpecialtyStart DateEnd Date Flash Lovelace MD [address] [place] [address] PCP - Generalmily Medicine09/04/18Team MemberRelationshipSpecialtyStart DateEnd Date Flash Lovelace MD [address] [place] [address] PCP - GeneralFamily Medicine09/04/18Team MemberRelationshipSpecialtyStart DateEnd Date Flash Lovelace MD [address] [place] [address] PCP - GeneralFamily Medicine09/04/18 Team Status: Inactive Member Role Status Dates Flash Lovelace MD Primary Care Provider Active Cristian Beaver [facility] ProviderActiveTeam MemberRelationshipSpecialty Start DateEnd Date Flash Lovelace MD [address] [place] [address] PCP - GeneralFamily Medicine09/04/18Team MemberRelationshipSpecialtyStart DateEnd Date Flash Lovelace MD [address] [place] [address] PCP - GeneralFamily Vpjnyoqk51/4/18Team MemberRelationshipSpecialtyStart DateEnd Date Flash Lovelace MD [address] [place] [address] PCP - GeneralFamily Qhwwbmdd02/4/18Team MemberRelationshipSpecialtyStart DateEnd Date Flash Lovelace MD [address] [place] [address] PCP - GeneralFamily Medicine09/04/18Team MemberRelationshipSpecialtyStart DateEnd Date Flash Lovelace MD [address] [place] [address] PCP - GeneralFamily Medicine09/04/18Team MemberRelationshipSpecialtyStart DateEnd Date Flash Lovelace MD [address] [place] [address] PCP - GeneralFamily Medicine09/04/18 System, Provider Not In Cardiologist11/09/22Team MemberRelationshipSpecialtyStart DateEnd Date Flash Lovelace MD [address] [place] [address] PCP - GeneralFamily Medicine09/04/18 System, Provider Not In Cardiologist11/09/22Team MemberRelationshipSpecialtyStart DateEnd Date Flash Lovelace MD [address] [place] [address] PCP - GeneralMercyone [facility] Centerly Medicine09/04/18 System, Provider Not In Cardiologist11/09/22Team MemberRelationshipSpecialtyStart DateEnd Date Flash Lovelace MD [address] [place] [address] PCP - [facility] Qmcdtrap24/4/18Team MemberRelationshipSpecialtyStart DateEnd Date Flash Lovelace MD [address] [place] [address] PCP - [facility]07/31/18 Team Status: Inactive Member Role Status Dates Flash Lovelace MD Primary Care Provider Active S tart: October 12, 2023 End: October 12, 2023Amari Fierro ProviderActiveStart: October 12, 2023 End: October 12, 2023 Team Status: Active Member Role Status Dates Flash Lovelace MD Primary Care Provider Active S tart: October 12, 2023 Amari Fierro Provider, Other ProviderActiveStart: October 12, 2023 Team Status: Inactive Member Role Status Dates Flash Lovelace MD Primary Care Provider Active S tart: October 17, 2023 End: October 17, 2023Gechano Juarez MDAttending ProviderActiveStart: October 17, 2023 End: October 17, 2023Duke Dunbar MDReferring ProviderActive Start: October 17, 2023 End: October 17, 2023Team MemberRelationshipSpecialtyStart DateEnd Date Flash Lovelace MD [address] [place] [address] PCP - [facility]08/28/17 Flash Lovelace MD [address] [place] [address] PCP - GeneralFamily Medicine03/09/23Team MemberRelationshipSpecialtyStart DateEnd Date Flash Lovelace MD [address] [place] [address] PCP - Hum[employer]1 Flash Lovelace MD [address] [place] [address] PCP - GeneralFamily Medicine03/09/23Monday, Mary, [employer] WORK[employer] [address] [place] [address] Licensed Practical NurseFamily Dvhbblgv07/25/24Team MemberRelationshipSpecialty Start DateEnd Date Flash Lovelace MD [address] [place] [address] PCP - Humana1 Flash Lovelace MD [address] [place] [address] PCP - GeneralFamily Medicine03/09/23Monday, Mary, [employer] STOR[employer] WORKER [address] [place] [address] Licensed Practical NurseFamily Hhdzcaxh46/25/24Team MemberRelationshipSpecialty Start DateEnd Date Flash Lovelace MD [address] [place] [address] PCP - GeneralFamily Medicine09/04/18 System, Provider Not In Cardiologist11/09/22Team MemberRelationshipSpecialtyStart DateEnd Date Flash Lovelace MD [address] [place] [address] PCP - [employer]1/09/14 Flash Lovelace MD [address] [place] [address] PCP - GeneralFamily Medicine03/09/23Team MemberRelationshipSpecialtyStart DateEnd Date Flash Lovelace MD [address] [place] [address] PCP - [employer]1/09/14 Flash Lovelace MD [address] [place] [address] PCP - Generalmily Medicine03/09/23Team MemberRelationshipSpecialtyStart DateEnd Date Flash Lovelace MD [address] [place] [address] PCP - Humana1 Flash Lovelace MD [address] [place] [address] PCP - GeneralFamily Medicine03/09/23Monday, Mary, [employer] STORAGE WORKER [address] [place] [address] Licensed Practical Nursemily Nywtmvdp13/25/24Team MemberRelationshipSpecialty Start DateEnd Date Flash Lovelace MD [address] [place] [address] PCP - [id number] MemberRelationshipSpecialtyStart DateEnd Date Flash Lovelace MD [address] [place] [address] PCP - Dpjtnub08/Team MemberRelationshipSpecialtyStart DateEnd Flash Lovelace MD [address] [place] [address] PCP - [employer]1/09/14 Flash Lovelace MD [address] [place] [address] PCP - GeneralFamily Medicine03/09/23Monday, ISABELLA Hernandez [address] [place] [address] Licensed Practical NurseCol[facility]06/21/24Team MemberRelationshipSpecialty Start DateEnd Flash Lovelace MD [address] [place] [address] PCP - Humana1 Flash Lovelace MD [address] [place] [address] PCP - [facility] Medicine03/09/23Team MemberRelationshipSpecialtyStart DateEnd Date Flash Lovelace MD [address] [place] [address] PCP - Humana1 Flash Lovelace MD [address] [place] [address] PCP - [facility] Medicine03/09/23Team MemberRelationshipSpecialtyStart DateEnd Date Flash Lovelace MD [address] [place] [address] PCP - Humana1 Flash Lovelace MD [address] [place] [address] PCP - GeneralFamily Medicine03/09/23Team MemberRelationshipSpecialtyStart DateEnd Date Flash Lovelace MD [address] [place] [address], [place] [address] PCP - GeneralFamily Medicine09/04/18 System, Provider Not In Cardiologist11/09/22Team MemberRelationshipSpecialtyStart DateEnd Date Flash Lovelace MD [address] [place] [address] PCP - Hum[employer]1 Flash Lovelace MD [address] [place] [address] PCP - GeneralFamily Medicine03/09/23Monday, ISABELLA Hernandez [address] [place] [address] Licensed Practical NurseFamily Vcuzgawq86/25/24Team MemberRelationshipSpecialty Start DateEnd Date Flash Lovelace MD [address] [place] [address] PCP - Humana1 Flash Lovelace MD [address] [place] [address] PCP - GeneralFamily Medicine03/09/23 Lorraine Morgan, RN Licensed Practical NurseFamily Medicine10/04/24Team MemberRelationshipSpecialty Start DateEnd Date Flash Lovelace MD [address] [place] [address] PCP - Humana1/118 Flash Lovelace MD [address] [place] [address] PCP - GeneralFamily Medicine03/09/23 SaabElaine, [facility] 11/15/24Team MemberRelationshipSpecialtyStart DateEnd Date Flash Lovelace MD [address] [place] [address] PCP - Humana1/09/14 Flash Lovelace MD [address] [place] [address] PCP - GeneralMercyone [facility] Centerly Medicine03/09/23 SaabElaine, [facility] 11/15/24Team MemberRelationshipSpecialtyStart DateEnd Date Flash Lovelace MD [address] [place] [address] PCP - Humana1/18 Flash Lovelace MD [address] [place] [address] PCP - Generalmily Medicine03/09/23 SaabElaineMY[facility] 11/15/24Team MemberRelationshipSpecialtyStart DateEnd Date Flash Lovelace MD [address] [place] [address] PCP - Humana1/18 Flash Lovelace MD [address] [place] [address] PCP - Generalmily Medicine03/09/23 SaabElaine [facility] 11/15/24Team MemberRelationshipSpecialtyStart DateEnd Date Flash Lovelace MD [address] [facility] [address] [place] [address] PCP - Human/09/14 Flash Lovelace MD [address] [facility] [address] [place] [address] PCP - Generalmily Medicine03/09/23 Elaine Saab [facility] 11/15/24Team MemberRelationshipSpecialtyStart DateEnd Date Flash Lovelace MD [address] [facility] [address] [place] [address] PCP - [place] [address] Flash Lovelace MD [address] [facility] [address] [place] [address] PCP - [facility] Medicine03/09/23 Elaine Saab [facility] [address] [facility] [address] [place] [address] 11/15/24 Team Status: Inactive Member Role Status Dates Flash Lovelace MD Primary Care Provider Active S tart: March 11, 2025 End: March 11, 2025Amari Fierro ProviderActiveStart: March 11, 2025 End: March 11, 2025 Team Status: Inactive Member Role Status Dates Flash Lovelace MD Primary Care Provider Active S tart: March 12, 2025 End: March 12, 2025Amari Fierro ProviderActiveStart: March 12, 2025 End: March 12, 2025Team MemberRelationshipSpecialtyStart DateEnd Date Flash Lovelace MD [address] [place] [address] PCP - GeneralFamily Medicine09/04/18 System, Provider Not In Cardiologist11/09/22Team MemberRelationshipSpecialtyStart DateEnd Date Flash Lovelace MD [address] [place] [address] PCP - GeneralFamily Medicine09/04/18 System, Provider Not In Cardiologist11/09/22Team MemberRelationshipSpecialtyStart DateEnd Date Flash Lovelace MD [address] [place] [address] PCP - GeneralFamily Medicine09/04/18 System, Provider Not In Cardiologist11/09/22Team MemberRelationshipSpecialtyStart DateEnd Date Flash Lovelace MD [address] [place] [address] PCP - GeneralFamily Medicine09/04/18 System, Provider Not In Cardiologist11/09/22Team MemberRelationshipSpecialtyStart DateEnd Date Flash Lovelace MD [address] [place] [address] PCP - Human08/28/17 Flash Lovelace MD [address] [place] [address] PCP - GeneralFamily Medicine03/09/23 Elaine Saab LPN [address] [place] [address] 11/15/24Team MemberRelationshipSpecialtyStart DateEnd Date Flash Lovelace MD [address] [place] [address] PCP - GeneralFamily Medicine09/04/18 System, Provider Not In Cardiologist11/09/22Team MemberRelationshipSpecialtyStart DateEnd Date Flash Lovelace MD [address] [place] [address] PCP - Humana1 Flash Lovelace MD [address] [place] [address] PCP - GeneralFamily Medicine03/09/23 Elaine Saab LPN [address] [place] [address] 11/15/24Team MemberRelationshipSpecialtyStart DateEnd Date Flash Lovelace MD [address] [place] [address] PCP - Humana1 Flash Lovelace MD [address] [place] [address] PCP - GeneralFamily Medicine03/09/23 Elaine Saab LPN [address] [place] [address] 11/15/24Team MemberRelationshipSpecialtyStart DateEnd Date Flash Lovelace MD [address] [place] [address] PCP - Humana1 Flash Lovelace MD [address] [place] [address] PCP - GeneralFamily Medicine03/09/23 Elaine Saab LPN [address] [place] [address] 11/15/24Team MemberRelationshipSpecialtyStart DateEnd Date Flash Lovelace MD [address] [place] [address] PCP - Humana1/09/14 Flash Lovelace MD [address] [place] [address] PCP - Generalmily Medicine03/09/23 Elaine Saab LPN [address] [place] [address] 11/15/24Team MemberRelationshipSpecialtyStart DateEnd Date Flash Lovelace MD [address] [place] [address] PCP - Humana1 Flash Lovelace MD [address] [place] [address] PCP - Generalmily Medicine03/09/23 Elaine Saab LPN [address] [place] [address] 11/15/24Team MemberRelationshipSpecialtyStart DateEnd Date Flash Lovelace MD [address] [place] [address] PCP - Humana1/18 Flash Lovelace MD [address] [place] [address] PCP - Generalmily Medicine03/09/23 Saab, Elaine, [employer] STOR[employer] WORKER [address] [place] [address] 11/15/24Team MemberRelationshipSpecialtyStart DateEnd Date Flash Lovelace MD [address] [place] [address] PCP - GeneralFamily Medicine09/04/18 System, Provider Not In Cardiologist11/09/22Team MemberRelationshipSpecialtyStart DateEnd Date Flash Lovelace MD [address] [place] [address] PCP - Human08/28/17 Flash Lovelace MD [address] [place] [address] PCP - GeneralFamily Medicine03/09/23 Elaine Saab LPN [address] [place] [address] 11/15/24Team MemberRelationshipSpecialtyStart DateEnd Date Flash Lovelace MD [address] [place] [address] PCP - Humana1 Flash Lovelace MD [address] [place] [address] PCP - GeneralFamily Medicine03/09/23 Elaine Saab LPN [address] [place] [address] 11/15/24Team MemberRelationshipSpecialtyStart DateEnd Date Flash Lovelace MD [address] [place] [address] PCP - Human08/28/17 Flash Lovelace MD [address] [facility] [address] [place] [address] PCP - [facility] Medicine03/09/23 Elaine Saab, [employer] STOR[employer] WORKER [address] [facility] [address] [place] [address] 11/15/24 Team Status: Active Member Role Status Dates Flash Lovelace MD Primary Care Provider Active S tart: March 12, 2025 Cristian Beaver MDOther ProviderActiveStart: March 12, 2025 Beena Negron , MDAttending ProviderActiveStart: March 12, 2025 Team Status: Active Member Role Status Dates Flash Lovelace MD Primary Care Provider Active S tart: May 02, 2025 Muna Greene DOEmergenrupert ProviderActiveStart: May 02, 2025 Obann-marie Priceomar , MDAdmit ProviderActiveStart: May 02, 2025 Obann-marie Priceomar , MDAttending ProviderActiveStart: May 02, 2025 Team Status: Active Member Role Status Dates Flash Lovelace MD Primary Care Provider Active S tart: May 04, 2025 Muna Greene DOEmergency ProviderActiveStart: May 04, 2025 Adiel Priceomar , MDAdmit ProviderActiveStart: May 04, 2025 Milvia Vang APRN ACNP-BCOther ProviderActiveStart: May 04, 2025 Richie Woodward MDOther ProviderActiveStart: May 04, 2025 Jesse Barry MDOther ProviderActiveStart: May 04, 2025 Randall Valdez MDOther ProviderActiveStart: May 04, 2025 Ramana Gonzalez DOOther ProviderActiveStart: May 04, 2025 Joyce Orourke MDOther ProviderActiveStart: May 04, 2025 Misael Quinn MDOther ProviderActiveStart: May 04, 2025 Yudelka Martines MDAttending ProviderActiveStart: May 04, 2025 Yudelka Martines MDOther ProviderActiveStart: May 04, 2025 Ben Reddy DOOther ProviderActiveStart: May 04, 2025 Team MemberRelationshipSpecialtyStart DateEnd Date Flash Lovelace MD [address] [place] [address] PCP - Generalmily Yfhvcwqy77/4/18Team MemberRelationshipSpecialtyStart DateEnd Date Flash Lovelace MD [address] [facility] [place] [address] PCP - [facility] Zrrdnlyk35/4/18Team MemberRelationshipSpecialtyStart DateEnd Date Flash Lovelace MD [address] [facility] [address] [place] [address] PCP - Humana1 Flash Lovelace MD [address] [place] [address] PCP - Generalmily Medicine03/09/23 Elaine Saab LPN [address] [place] [address] 11/15/24Team MemberRelationshipSpecialtyStart DateEnd Date Flsah Lovelace MD [address] [place] [address] PCP - Humana1 Flash Lovelace MD [address] [place] [address] PCP - GeneralFamily Medicine03/09/23 Elaine Saab LPN [address] [place] [address] 11/15/24Team MemberRelationshipSpecialtyStart DateEnd Date Flash Lovelace MD [address] [place] [address] PCP - Humana1/09/14 Flash Lovelace MD [address] [place] [address] PCP - GeneralFamily Medicine03/09/23 Elaine Saab LPN [address] [place] [address] 11/15/24Team MemberRelationshipSpecialtyStart DateEnd Date Flash Lovelace MD [address] [place] [address] PCP - Humana1 Flash Lovelace MD [address] [place] [address] PCP - GeneralFamily Medicine03/09/23 Elaine Saab LPN [address] [place] [address] 11/15/24Team MemberRelationshipSpecialtyStart DateEnd Date Flash Lovelace MD [address] [place] [address] PCP - GeneralFamily Medicine09/04/18 System, Provider Not In Cardiologist11/09/22Team MemberRelationshipSpecialtyStart DateEnd Date Flash Lovelace MD [address] [place] [address] PCP - Humana1//18 Flash Lovelace MD [address] [facility] [address] [place] [address] PCP - [facility] Medicine03/09/23 Elaine Saab IASBELLA [address] [facility] [address] [place] [address] 11/15/24 Scheduled Active and Recently Administ ered Medications (unrecognized section and content) Medication Order// acetaminophen (TYLENOL) tablet 975 mg (COMPLETED) 975 mg, Oral, Once, On Mon01/18/22 at 2330, For 1 dose * 0026 (Given - Provider: Mary Robles RN) aspirin chewable tablet 81 mg 81 mg, Oral, Daily, First dose on Mon01/19/22 at 0900 * 0951 (Given - Provider: Maude Vallejo RN) * 0932 (Given - Provider: Rafaela Negron, VAN) * 0950 (Given - Provider: Alma Delia Page, VAN) atorvastatin (LIPITOR) tablet 40 mg 40 mg, Oral, Daily, First dose on Mon01/19/22 at 0900 * 0951 (Given - Provider: Maude Vallejo RN) * 0932 (Given - Provider: Rafaela Negron, VAN) * 0950 (Given - Provider: Alma Delia Page, VAN) docusate sodium (COLACE) capsule 100 mg 100 mg, Oral, 2 times daily, First dose on Mon01/19/22 at 0900, Hold for loose stools DO NOT CRUSH OR CHEW. * 0951 (Given - Provider: Maude Vallejo RN) * 2020 (Given - Provider: Kiesha Mosquera, VAN) * 0932 (Given - Provider: Rafaela Negron, VAN) * 2030 (Given - Provider: Kiesha Mosquera, VAN) * 0950 (Given - Provider: Alma Delia Page, VAN) enoxaparin (LOVENOX) syringe 40 mg 40 mg, Subcutaneous, Daily, First dose on Mon01/19/22 at 0900, Administer in abdomen unless otherwise directed by prescriber. Notify physician if patient refuses., Indication: VTE Prophylaxis * 0952 (Given - Provider: Maude Vallejo RN) * 0932 (Given - Provider: Rafaela Negron RN) * 0950 (Given - Provider: Alma Delia Page RN) gabapentin (NEURONTIN) capsule 100 mg 100 mg, Oral, Every 8 hours scheduled, First dose on Mon01/19/22 at 0600 * 0951 (Given - Provider: Maude Vallejo RN) * 1338 (Given - Provider: Violetta Stuart RN) * 2220 (Given - Provider: Kiesha Mosquera, RN) * 0640 (Given - Provider: Kiesha Mosquera, RN) * 1407 (Given - Provider: Rafaela Negron RN) * 2233 (Given - Provider: Kiesha Mosquera, RN) * 0614 (Given - Provider: Kiesha Mosquera, VAN) * 1415 (Given - Provider: Alma Delia Page RN) losartan (COZAAR) tablet 50 mg 50 mg, Oral, Daily with lunch, First dose on Mon01/19/22 at 1200 * 1224 (Given - Provider: Violetta Stuart RN) * 1218 (Given - Provider: Rafaela Negron RN) * 1235 (Given - Provider: Alma Delia Page RN) metoprolol tartrate (LOPRESSOR) tablet 50 mg 50 mg, Oral, 2 times daily, First dose on Mon01/19/22 at 0900 * 0951 (Given - Provider: Maude Vallejo RN) * 2020 (Given - Provider: Kiesha Mosquera RN) * 0932 (Given - Provider: Rafaela Negron, VAN) * 2030 (Given - Provider: Kiesha Mosquera, VAN) * 0950 (Given - Provider: Alma Delia Page RN) pantoprazole (PROTONIX) EC tablet 40 mg 40 mg, Oral, Daily, First dose on Mon01/19/22 at 0900, DO NOT CRUSH OR CHEW. * 0951 (Given - Provider: Maude Vallejo RN) * 0932 (Given - Provider: Rafaela Negron RN) * 0950 (Given - Provider: Alma Delia Page, VAN) sodium chloride (PF) (NS) flush 5 mL(Linked Group 1) 5 mL, Intravenous, Every 8 hours scheduled, First dose on Mon01/19/22 at 0010, Saline lock * 0010 (Given - Provider: Mary Robles, RN) * 0600 (Not Given - Provider: Maude Valljeo, RN - Reason: Order parameters not met) * 1340 (Given - Provider: Violetta Stuart, RN) * 2222 (Given - Provider: Kiesha Mosquera, VAN) * 0600 (Due) * 1400 (Canceled Entry - Provider: Rafaela Negron, VAN) * 2233 (Given - Provider: Kiesha Mosquera, RN) * 0615 (Given - Provider: Kiesha Mosquera RN) * 1400 (Not Given - Provider: Alma Delia Page RN - Reason: Contraindicated) tiotropium bromide (SPIRIVA RESPIMAT) 2.5 mcg/actuation inhaler 2 puff 2 puff, Inhalation, Daily (RT), First dose on Mon01/19/22 at 1900 * 2220 (Given - Provider: Kiesha Mosquera, VAN) * 0932 (Given - Provider: Rafaela Negron, VAN) * 0951 (Given - Provider: Alma Delia Page, VAN) vancomycin (VANCOCIN) 1750 mg in sodium chloride 0.9% (NS) 500 mL IVPB 1,750 mg, Intravenous, at 250 mL/hr, Every 18 hours, First dose (after last modification) on Prerna 01/20/22 at 1215, Indication: Cellulitis Not Responding to Beta-lactams * 1223 (New Bag - Provider: Rafaela Negron, VAN) * 1430 (Stopped - Provider: Rafaela Negron, VAN) * 0726 (New Bag - Provider: Kiesha Mosquera, VAN) Medication Order// acetaminophen (TYLENOL) tablet 650 mg 650 mg, Oral, Every 4 hours PRN, mild pain, fever 100.4 F or greater, headaches, Starting on Mon01/19/22 at 0008 * 2020 (Given - Provider: Kiesha Mosquera, VAN) iopamidoL (ISOVUE-370) 76 % injection 125 mL (COMPLETED) 125 mL, Intravenous, Once in imaging, contrast, Starting on Mon01/19/22 at 0048, For 1 dose * 0110 (Contrast Administered - Provider: Mirna Wynn, TECHNOLOGIST) magnesium hydroxide (MOM) 400 mg/5 mL suspension 2,400 mg 2,400 mg (30 mL), Oral, Daily PRN, constipation, Starting on Mon01/19/22 at 0008, If no bowel movement in 24 hours after Sennosides (SENNA) administration. melatonin Tab 5 mg 5 mg, Oral, Nightly PRN, Sleep, Starting on Mon01/19/22 at 0009 * 2235 (Given - Provider: Kiesha Mosquera RN) [...] 2 minutes until respiratory rate is 10 orgreater. naloxone (NARCAN) injection 0.4 mg(Linked Group 2) [...] For 3 doses, Anginal pain, may repeat [id number] x3, then notify physician. DO NOT CRUSH OR CHEW. ondansetron (ZOFRAN) injection 4 mg(Linked Group 3) 4 mg, Intravenous, Every 6 hours PRN, nausea, vomiting, Starting on Mon01/19/22 at 0008, Use oral route first, if tolerated. * 1216 (Given - Provider: Rafaela Negron RN) ondansetron (ZOFRAN-ODT) disintegrating tablet 4 mg(Linked Group 3) 4 mg, Oral, Every 6 hours PRN, nausea, vomiting, Starting on Mon01/19/22 at 0008, Use oral route first, if tolerated. Formulation requires tablet remain in sealed package until immediately prior to dose being administered. * 1216 (See Alternative - Provider: Rafaela Negron RN) oxyCODONE (ROXICODONE) immediate release tablet 5 mg 5 mg, Oral, Every 6 hours PRN, moderate to severe pain, Starting on Mon01/19/22 at 0335 * 1646 (Given - Provider: Violetta Stuart, VAN) * 2220 (Given - Provider: Kiesha Mosquera, RN) * 0658 (Given - Provider: Kiesha Mosquera, RN) * 1218 (Given - Provider: Rafaela Negron RN) * 2111 (Given - Provider: Kiesha Mosquera RN) oxymetazoline [...] mL, Intravenous, Once in imaging, contrast, Per photographer's model (Radiology) for line patency check prior to contrast administration, Starting on Mon01/19/22 at 0048, For 1 dose sodium chloride (PF) (NS) 0.9 % contrast line flush 80 mL(Linked Group 4) 80 mL, Intravenous, Once in imaging, contrast, Per photographer's model (Radiology), Starting on Mon01/19/22 at 0048, For [...] as Primary IV. NOT intended for KVO. Order Group 1: Saline lock IV (CANCELED) [...] mL, Intravenous, Once in imaging, contrast, Per photographer's model (Radiology) for line patency check prior to contrast administration, Starting on Mon01/19/22 at 0048, For 1 dose And sodium chloride (PF) (NS) 0.9 % contrast line flush 80 mLJump to med 80 mL, Intravenous, Once in imaging, contrast, Per photographer's model (Radiology), Starting on Mon01/19/22 at 0048, For 1 dose
30 mL BEFORE contrast administration 50 mL AFTER contrast administration
Medication Order/ aspirin EC tablet 81 mg 81 mg, Oral, Daily, First dose on Mon04/15/22 at 0900, DO NOT CRUSH OR CHEW. * 1014 (Given - Provider: Mirta Huerta RN) atorvastatin (LIPITOR) tablet 40 mg 40 mg, Oral, Daily, First dose on Mon04/15/22 at 0900 * 1015 (Given - Provider: Mirta Huerta RN) fentaNYL (SUBLIMAZE) injection 50 mcg (COMPLETED) 50 mcg, Intravenous, Once, On Prerna 04/14/22 at 2120, For 1 dose * 0 (Given - Provider: Rose Bautista RN) gabapentin (NEURONTIN) capsule 100 mg 100 mg, Oral, Every 8 hours scheduled, First dose on Mon04/15/22 at 0200 * 0200 (Not Given - Provider: Mane Akins, VAN - Reason: Patient/family refused) * 0614 (Given - Provider: Mane Akins RN) * 1419 (Given - Provider: Mirta Huerta RN) losartan (COZAAR) tablet 50 mg 50 mg, Oral, Daily, First dose on Mon04/15/22 at 0900 * 1014 (Given - Provider: Mirta Huerta RN) metoprolol tartrate (LOPRESSOR) tablet 50 mg 50 mg, Oral, 2 times daily, First dose on Mon04/15/22 at 0900 * 1015 (Given - Provider: Mirta Huerta, VAN) pantoprazole (PROTONIX) EC tablet 40 mg 40 mg, Oral, Daily, First dose on Mon04/15/22 at 0900, DO NOT CRUSH OR CHEW. * 1015 (Given - Provider: Mirta Huerta RN) polyethylene glycol (MIRALAX) powder 17 g 17 g, Oral, Daily, First dose on Mon04/15/22 at 0900 * 1014 (Given - Provider: Mirta Huerta RN) rivaroxaban (XARELTO) tablet 2.5 mg 2.5 mg, Oral, 2 times daily, First dose on Mon04/15/22 at 0200, Must be given with food. Notify physician if patient refuses. If feeding tube administration, give only via tubes placed in the stomach., Indication: CAD/PAD * 0200 (Not Given - Provider: Mane Akins RN - Reason: Patient/family refused) * 1017 (Given - Provider: Mirta Huerta RN) sodium chloride (PF) (NS) flush 5 mL(Linked Group 1) 5 mL, Intravenous, Every 8 hours scheduled, First dose on Mon04/15/22 at 0200, Saline lock * 0200 (Canceled Entry - Provider: Mane Akins RN) * 0600 (Canceled Entry - Provider: Mane Akins, RN) * 1014 (Given - Provider: Mirta Huerta RN) * 1400 (Not Given - Provider: Mirta Huerta RN - Reason: Other) Medication Order// acetaminophen (TYLENOL) tablet 650 mg 650 mg, [...] in imaging, contrast, Starting on Mon04/14/22 at 2111, For 1 dose * 2129 (Contrast Administered - Provider: Beena Yates, TECHNOLOGIST) iopamidoL (ISOVUE-370) 76 % injection 75 mL 75 mL, Intravenous, Once in imaging, contrast, Starting on Mon04/14/22 at 2110, For 1 dose naloxone (NARCAN) injection 0.1 mg(Linked Group 2) 0.1 mg, Intravenous, As needed, opioid reversal, For respiratory rate less than or equal to 8 per minute., Starting on Mon04/15/22 at 010, Mix nalOXone (NARCAN) 0.4 mg (1mL) with 9 mL of Normal Saline to total 10 mL. Administer 0.1 mg (2.5mL) IV Push every 2 minutes until respiratory rate is 10 orgreater. naloxone (NARCAN) injection 0.4 mg(Linked Group 2) [...] 0101, Use oral route first, if tolerated. * 0614 (See Alternative - Provider: Mane Akins RN) * 1421 (See Alternative - Provider: Mirta Huerta RN) * 1910 (See Alternative - Provider: Lizz Damon, RN) ondansetron (ZOFRAN-ODT) disintegrating tablet 4 mg(Linked Group 3) 4 mg, Oral, Every 6 hours PRN, nausea, vomiting, Starting on Mon04/15/22 at 0101, Use oral route first, if tolerated. Formulation requires tablet remain in sealed package until immediately prior to dose being administered. * 0614 (Given - Provider: Mane Akins RN) * 142 (Given - Provider: Mirta Huerta, VAN) * 1910 (Given - Provider: Lizz Damon RN) oxyCODONE-acetaminophen (PERCOCET) 5-325 mg per tablet 1 tablet 1 tablet, Oral, Every 6 hours PRN, moderate to severe pain, Starting on Mon04/15/22 at 0101 * 0126 (Given - Provider: Mane Akins RN) sodium chloride (PF) (NS) 0.9 % contrast line flush 10 mL (COMPLETED) 10 mL, Intravenous, Once in imaging, contrast, Per photographer's model (Radiology) for line patency check prior to contrast administration, Starting on Mon04/14/22 at 2110, For 1 dose * 2131 (Given - Provider: Beena Yates, TECHNOLOGIST) sodium chloride (PF) (NS) 0.9 % contrast line flush 80 mL (COMPLETED) 80 mL, Intravenous, Once in imaging, contrast, Per photographer's model (Radiology), Starting on Mon04/14/22 at 2110, For 1 dose, 30 mL BEFORE contrast administration 50 mL AFTER contrast administration * 2130 (Given - Provider: Beena Yates, TECHNOLOGIST) sodium chloride (PF) (NS) flush 5 mL(Linked Group 4) 5 mL, Intravenous, As needed, line care, Starting on Mon04/14/22 at 1942 sodium chloride (PF) (NS) flush 5 mL(Linked Group 1) 5 mL, Intravenous, As needed, line care, Starting on Mon04/15/22 at 010 sodium chloride 0.9% (NS)(Linked Group 4) 0-150 [...] PRN, sleep, Starting on Mon04/15/22 at 0101 Order Group 1: Saline lock IV (CANCELED) [...] IV (CANCELED) KAJAL, Once, On Mon04/14/22 at 1945, For 1 occurrence And sodium [...] as Primary IV. NOT intended for KVO.
Medication Order// aspirin chewable tablet 81 mg 81 mg, Oral, Daily, First dose on Mon11/04/22 at 0900 * 0834 (Given - Provider: Terri Mackenzie RN) * 0859 (Given - Provider: Cara Dorado RN) * 0928 (Given - Provider: Andree Agarwal RN) atorvastatin (LIPITOR) tablet 40 mg 40 mg, Oral, Nightly, First dose on Mon11/04/22 at 2100 * 2019 (Given - Provider: Meir Nath, VAN) * 2022 (Given - Provider: Meir Nath, VAN) benzonatate (TESSALON) capsule 100 mg 100 mg, Oral, 3 times daily, First dose (after last reorder) on Mon11/04/22 at 1045, DO NOT CRUSH OR CHEW. * 0834 (Given - Provider: Terri Mackenzie RN) * 1659 (Given - Provider: Terri Mackenzie RN) * 2019 (Given - Provider: Meir Nath VAN) * 0859 (Given - Provider: Cara Dorado, VAN) * 1556 (Given - Provider: Cara Dorado RN) * 2022 (Given - Provider: Meir Nath RN) * 0928 (Given - Provider: Andree Agarwal, RN) budesonide-formoteroL (SYMBICORT) 160-4.5 mcg/actuation inhaler 2 puff(Linked Group 1) 2 puff, Inhalation, 2 times daily (RT), First dose on Mon11/03/22 at 2230 * 0836 (Given - Provider: Terri Mackenzie, RN) * 2019 (Given - Provider: Meir Nath, VAN) * 0904 (Given - Provider: Cara Dorado, VAN) * 2023 (Given - Provider: Meir Nath, VAN) * 0929 (Given - Provider: Andree Agarwal, RN) cefePIMe-dextrose (MAXIPIME) 2 gram/50 mL IVPB 2,000 mg 2,000 mg, Intravenous, at 100 mL/hr, Every 12 hours, First dose on Mon11/04/22 at 1000, Indication:HAP/VAP * 1138 (New Bag - Provider: Terri Mackenzie RN) * 2247 (New Bag - Provider: Meir Nath RN) * 2252 (Paused - Provider: Meir Nath RN) * 2253 (Restarted - Provider: Meir Nath, VAN) * 2319 (Stopped - Provider: Meir Nath, VAN) * 1139 (New Bag - Provider: Cara Dorado RN) * 2138 (New Bag - Provider: Meir Nath, VAN) * 1037 (New Bag - Provider: Andree Agarwal, RN) docusate sodium (COLACE) capsule 100 mg 100 mg, Oral, Daily, First dose on Mon11/07/22 at 1900, Hold for loose stools DO NOT CRUSH OR CHEW. * 1835 (Given - Provider: Cara Dorado RN) * 0928 (Given - Provider: Andree Agarwal, VAN) furosemide (LASIX) injection 20 mg (CANCELED) 20 mg, Intravenous, 2 times daily before meals, First dose on Mon11/04/22 at 0730 * 0833 (Given - Provider: Terri Mackenzie, RN) * 165 (Given - Provider: Terri Mackenzie, VAN) * 0900 (Given - Provider: Cara Dorado, VAN) furosemide (LASIX) tablet 20 mg 20 mg, Oral, Daily, First dose on Mon11/08/22 at 0900 * 0928 (Given - Provider: Andree Agarwal, VAN) ipratropium-albuteroL (DUO-NEB) 0.5-2.5 mg/3 ml nebulizer solution 3 mL 3 mL, Inhalation, Every 6 hours scheduled (RT), First dose on Mon11/03/22 at 2230 * 0345 (Not Given - Provider: Gisella Pyle BODY MECHANIC - Reason: Patient/family refused - Comment: Patient doesn't want his treatment throughout the night) * 0800 (Not Given - Provider: Sussy Rocha BODY MECHANIC - Reason: Patient not available) * 1515 (Given - Provider: Andrew Milan, LILIAN) * 2012 (Given - Provider: Claire Ireland BODY MECHANIC) * 0200 (Not Given - Provider: Claire Ireland BODY MECHANIC - Reason: Patient/family refused) * 0828 (Given - Provider: Sussy Rocha BODY MECHANIC) * 1400 (Given - Provider: Sussy Rocha BODY MECHANIC) * 2024 (Given - Provider: Claire Ireland RRT) * 0200 (Not Given - Provider: Claire Ireland BODY MECHANIC - Reason: Patient/family refused) * 0800 (Not Given - Provider: Jesse Ferraro BODY MECHANIC - Reason: Other - Comment: patient wanted to eat/wait till next round) * 1400 (Due) losartan (COZAAR) tablet 50 mg (CANCELED) 50 mg, Oral, Daily with lunch, First dose on Mon11/04/22 at 1200 * 1351 (Given - Provider: Terri Mackenzie RN) metoprolol tartrate (LOPRESSOR) tablet 50 mg 50 mg, Oral, 2 times daily, First dose on Mon11/03/22 at 2230 * 0833 (Given - Provider: Terri Mackenzie RN) * 2020 (Given - Provider: Meir Nath RN) * 0900 (Given - Provider: Cara Dorado RN) * 2022 (Given - Provider: Meir Nath RN) * 0928 (Given - Provider: Andree Agarwal, VAN) pantoprazole (PROTONIX) EC tablet 40 mg 40 mg, Oral, 2 times daily, First dose on Prerna 11/03/22 at 2230, DO NOT CRUSH OR CHEW. * 0833 (Given - Provider: Terri Mackenzie RN) * 2019 (Given - Provider: Meir Nath RN) * 08 (Given - Provider: Cara Dorado RN) * 2022 (Given - Provider: Meir Nath RN) * 0928 (Given - Provider: Andree Agarwal, VAN) perflutren lipid microspheres (DEFINITY) 0.143 mg/mL solution [...] total ML OF MIXTURE given to patient. * 1119 (Given - Provider: Peyman Rubio RN) polyethylene glycol (MIRALAX) powder 17 g 17 g, Oral, Daily, First dose on 11/06/22 at 0900 * 1136 (Given - Provider: Terri Mackenzie RN) * 0900 (Given - Provider: Cara Dorado RN) * 0929 (Given - Provider: Andree Agarwal, VAN) rivaroxaban (XARELTO) tablet 2.5 mg 2.5 mg, Oral, 2 times daily, First dose (after last modification) on Mon11/04/22 at 0800, Must be given with food. Notify physician if patient refuses. If feeding tube administration, give only via tubes placed in the stomach., Indication: CAD/PAD * 0833 (Given - Provider: Terri Mackenzie RN) * 2019 (Given - Provider: Meir Nath RN) * 0859 (Given - Provider: Cara Dorado RN) * 2022 (Given - Provider: Meir Nath RN) * 0928 (Given - Provider: Andree Agarwal, VAN) sodium chloride (OCEAN) 0.65 % nasal spray 1 spray 1 spray, Each Nare, 2 times daily, First dose (after last modification) on Mon11/07/22 at 2100, Upright delivers a spray; Horizontally a stream; Upside down a drop. * 2100 (Not Given - Provider: Meir Nath RN - Reason: Patient/family refused) * 0900 (Not Given - Provider: Andree Agarwal RN - Reason: Other - Comment: pt states he uses as needed) sodium chloride (PF) (NS) flush 5 mL(Linked Group 2) 5 mL, Intravenous, Every 8 hours scheduled, First dose on Mon11/03/22 at 2230, Saline lock * 0527 (Given - Provider: Misty Ponce RN) * 1659 (Given - Provider: Terri Mackenzie RN) * 2200 (Canceled Entry - Provider: Meir Nath RN) * 0625 (Given - Provider: Meir Nath RN) * 1400 (Canceled Entry - Provider: Cara Dorado, VAN) * 2138 (Given - Provider: Meir Nath, VAN) * 0615 (Given - Provider: Meir Nath RN) * 1400 (Due) tiotropium bromide (SPIRIVA RESPIMAT) 2.5 mcg/actuation inhaler 2 puff(Linked Group 1) 2 puff, Inhalation, Daily (RT), First dose on Mon11/04/22 at 0900 * 0835 (Given - Provider: Terri Mackenzie RN) * 0904 (Given - Provider: Cara Dorado RN) * 0929 (Given - Provider: Andree Agarwal, VAN) Medication Order// aluminum-magnesium hydroxide-simethicone (MAALOX PLUS) 200-200-20 mg/5 mL [...] 2 minutes until respiratory rate is 10 orgreater. naloxone (NARCAN) injection 0.4 mg(Linked Group 3) [...] 2227, Use oral route first, if tolerated. * 0712 (See Alternative - Provider: Meir Nath RN) ondansetron (ZOFRAN-ODT) disintegrating tablet 4 mg(Linked Group 4) 4 mg, Oral, Every 6 hours PRN, nausea, vomiting, Starting on Prerna 11/03/22 at 2227, Use oral route first, if tolerated. Formulation requires tablet remain in sealed package until immediately prior to dose being administered. * 0712 (Given - Provider: Meir Nath RN) oxyCODONE-acetaminophen (PERCOCET) 5-325 mg per tablet 1 tablet 1 tablet, Oral, Every 4 hours PRN, moderate to severe pain, Starting on Mon11/04/22 at 1000 * 0525 (Given - Provider: Misty Ponce, VAN) * 1253 (Given - Provider: Terri Mackenzie, VAN) * 2242 (Given - Provider: Meir Nath RN) sodium chloride (OCEAN) 0.65 % nasal spray 1 spray (CANCELED) 1 spray, Each Nare, As needed, irritation, Starting on 11/05/22 at 1130, Upright delivers a spray; Horizontally a stream; Upside down a drop. * 0835 (Given - Provider: Terri Mackenzie RN) [...] PRN, sleep, Starting on Mon11/04/22 at 2341 Order Group 1: budesonide-formoteroL (SYMBICORT) 160-4.5 mcg/actuation [...] secondary infusion, Starting on Prerna 11/03/22 at 2228
Run as Primary IV. NOT [...] vomiting, Starting on Prerna 11/03/22 at 2227
Useoral route first, if tolerated.
Group 5: Insert [...] as Primary IV. NOT intended for KVO.
Medication Order//12/2022 benzonatate (TESSALON) capsule 100 mg (COMPLETED) 100 mg, Oral, NOW, 1 dose, On 10/30/22 at 2145 * 2143 (Given - Provider: Jose Panchal RN) ipratropium-albuterol (DUONEB) nebulizer solution 1 ampule 1 ampule, Inhalation, EVERY 4 HOURS WHILE AWAKE, First dose on 10/30/22 at 2000, Until Discontinued, Initiate RT Bronchodilator Protocol: No * 1946 (Given - Provider: Norma Fitzgerald RCP) methylPREDNISolone sodium (SOLU-MEDROL) injection 125 mg 125 mg, IntraVENous, DAILY, First dose on 10/30/22 at 194 * 1940 (Given - Provider: Jose Panchal RN) Medication Order//12/2022 ipratropium-albuterol (DUONEB) nebulizer solution 1 ampule 1 ampule, Inhalation, EVERY 4 HOURS WHILE AWAKE, First dose on 10/30/22 at 2000, Until Discontinued, Initiate RT Bronchodilator Protocol: No * 1946 (Given - Provider: Norma Fitzgerald RCP) methylPREDNISolone sodium (SOLU-MEDROL) injection 125 mg 125 mg, IntraVENous, DAILY, First dose on 10/30/22 at 1945 * 1940 (Given - Provider: Jose Panchal RN) Medication Order// acetaminophen (TYLENOL) tablet 650 mg 650 mg, Oral, Every 4 hours while awake, First dose on Mon03/14/25 at 1500 * 0614 (Given - Provider: Jeremy Merchant RN) * 1126 (Given - Provider: Dashawn Cano RN) * 1431 (Given - Provider: Dashawn Cano RN) * 1816 (Given - Provider: Dashawn Cano, VAN) * 2117 (Given - Provider: Zenobia Clay, RN) * 0536 (Given - Provider: Zenobia Clay RN) * 1118 (Given - Provider: Kaylie Denny, VAN) * 1400 (Hold - Provider: Kaylie Denny RN - Reason: Other - Comment: patient sleeping) * 1751 (Given - Provider: Kaylie Denny, VAN) * 2157 (Given - Provider: China Negro, VAN) * 0550 (Given - Provider: China Negro RN) * 1111 (Given - Provider: Katie Pino, RN) * 1400 (Not Given - Provider: Katie Pino RN - Reason: Order parameters not met) * 1800 (Due) aspirin EC tablet 81 mg 81 mg, Oral, Daily, First dose on Mon03/14/25 at 1635, DO NOT CRUSH OR CHEW. * 0837 (Given - Provider: Dashawn Cano RN) * 0815 (Given - Provider: Kaylie Denny, VAN) * 0831 (Given - Provider: Katie Pino, VAN) atorvastatin (LIPITOR) tablet 80 mg 80 mg, Oral, Nightly, First dose (after last modification) on Mon03/14/25 at 2130 * 2117 (Given - Provider: Zenobia Clay, VAN) * 2157 (Given - Provider: China Negro RN) azelastine (ASTELIN) 137 mcg (0.1 %) nasal spray 1 spray 1 spray, Each Nare, Daily, First dose on Mon03/15/25 at 0900 * 0839 (Given - Provider: Dashawn Cano, VAN) * 0813 (Given - Provider: Kaylie Denny, VAN) * 0832 (Given - Provider: Katie Pino, VAN) cyclobenzaprine (FLEXERIL) tablet 10 mg (CANCELED) 10 mg, Oral, Every 8 hours scheduled, First dose on Mon03/17/25 at 2200 * 0614 (Given - Provider: Jeremy Merchant, VAN) * 1431 (Given - Provider: Dashawn Cano RN) * 2117 (Given - Provider: Zenobia Clay, RN) * 0536 (Given - Provider: Zenobia Clay, VAN) * 1400 (Hold - Provider: Kaylie Denny RN - Reason: Patient/family refused - Comment: states makeshim feel loopy asn asks to hold/discontinue order) furosemide (LASIX) tablet 20 mg 20 mg, Oral, Every other day, First dose on 03/15/25 at 0900 * 0838 (Given - Provider: Dashawn Cano RN) * 0831 (Given - Provider: Katie Pino, VAN) losartan (COZAAR) tablet 50 mg 50 mg, Oral, Daily with lunch, First dose on 03/15/25 at 1200, Please hold if mean arterial pressure (MAP) is less than 65 * 1126 (Not Given - Provider: Dashawn Cano RN - Reason: Order parameters not met - Comment: MAP 64) * 1118 (Given - Provider: Kaylie Denny, VAN) * 1111 (Given - Provider: Katie Pino, VAN) metoprolol tartrate (LOPRESSOR) tablet 50 mg 50 mg, Oral, 2 times daily, First dose on Mon03/14/25 at 2200, Please hold if mean arterial pressure (MAP) is less than 65 and/or HR is less than 60 * 0837 (Given - Provider: Dashawn Cano RN) * 2117 (Given - Provider: Zenobia Clay, VAN - Comment: BP 134/44, MAP 67, HR 88) * 0812 (Given - Provider: Kaylie Denny, VAN) * 2157 (Given - Provider: China Negro RN) * 0831 (Given - Provider: Katie Pino, VAN) pantoprazole (PROTONIX) EC tablet 40 mg 40 mg, Oral, Daily, First dose on 03/15/25 at 0900, DO NOT CRUSH OR CHEW. * 0838 (Given - Provider: Dashawn Cano RN) * 0812 (Given - Provider: Kaylie Denny, VAN) * 0831 (Given - Provider: Katie Pino RN) polyethylene glycol (MIRALAX) powder 17 g 17 g, Oral, Daily, First dose on Mon03/15/25 at 0900 * 0837 (Given - Provider: Dashawn Cano RN) * 0900 (Hold - Provider: Kaylie Denny, RN - Reason: Patient/family refused) * 0831 (Given - Provider: Katie Pino, RN) rivaroxaban (XARELTO) tablet 2.5 mg 2.5 mg, Oral, 2 times daily, First dose on Mon03/18/25 at 1300, Give with food if possible. Notify physician if patient refuses. If feeding tube administration, give only via tubes placed in the stomach., Indication: CAD/PAD * 0839 (Given - Provider: Dashawn Cano, VAN) * 1919 (Given - Provider: Zenobia Clay, RN) * 0812 (Given - Provider: Kaylie Denny, RN) * 1938 (Given - Provider: China Negro, RN) * 0831 (Given - Provider: Katie Pino, VAN) tamsulosin (FLOMAX) 24 hr capsule 0.4 mg 0.4 mg, Oral, After evening meal, First dose on Mon03/15/25 at 1800, DO NOT CRUSH OR CHEW. Give 30 minutes after the same meal daily. Monitor for orthostasis due to potential risk of syncope. * 1816 (Given - Provider: Dashawn Cano, VAN) * 1751 (Given - Provider: Kaylie Denny, VAN) * 1800 (Due) zolpidem (AMBIEN) tablet 10 mg 10 mg, Oral, Nightly, First dose on Mon03/14/25 at 2200 * 2117 (Given - Provider: Zenobia Clay, RN) * 215 (Given - Provider: China Negro, RN) Medication Order sodium chloride 0.9% for pressurized line 1,000 mL, Intra-catheter (arterial), Continuous, Starting on Mon03/17/25 at 2200, Maintain Arterialline at 300 mm Hg Medication Order// albuterol inhaler 2 puff 2 puff, Inhalation, [...] on Mon03/14/25 at 2025, Give with Food * 1939 (Given - Provider: China Negro, VAN) HYDROmorphone (DILAUDID) injection 1 mg (CANCELED) 1 mg, Intravenous, Every 3 hours PRN, breakthru pain not controlled by PO, Starting on Mon03/17/25 at 1024 * 0631 (Given - Provider: Jeremy Merchant, VAN) [...] 2 minutes until respiratory rate is 10 orgreater. naloxone (NARCAN) injection 0.4 mg(Linked Group 2) [...] dose, change to 10 mg every 4 hoursprn moderate to severe pain. If pain is UNrelieved after repeat dose, or patient requires dose reduction, call physician. * 0105 (Given - Provider: Jeremy Merchant, RN) * 1919 (Given - Provider: Zenobia Clay, RN) * 0812 (Given - Provider: Kaylie Denny, VAN) * 1753 (Given - Provider: Kaylie Denny, VAN) * 1149 (Given - Provider: Katie Pino RN) [...] due to bitter taste. May be crushed ifgiven via tube. * 1751 (Given - Provider: Kaylie Denny, VAN) sodium [...] as Primary IV. NOT intended for KVO. Order Group 1: Maintain and Assess Indwelling [...] 2 minutes until respiratory rate is 10 orgreater. And Notify physician (CANCELED) STAT, Until discontinued, [...] as Primary IV. NOT intended for KVO. Medication Order/ aspirin chewable tablet 81 mg 81 mg, Oral, DAILY, First dose on Mon05/09/25 at 0900, Until Discontinued * 0900 (Automatically Held) * 0808 (Unheld by provider - Provider: Rafaela Garcia MD) * 1044 (Given - Provider: Terrie Hunt RN) * 0921 (Given - Provider: Terrie Hunt RN) Atorvastatin (LIPITOR) tablet 80 mg 80 mg, Oral, DAILY, First dose on Mon05/09/25 at 0900, Until Discontinued * 1002 (Given - Provider: Tameka Wells RN) * 1051 (Given - Provider: Terrie Hunt RN) * 1119 (Given - Provider: Terrie Hunt RN) ceFEPIme (MAXIPIME) 2 g in dextrose 100 ml premix IVPB (CANCELED) 2 g, Intravenous, Administer over 4 Hours, EVERY 8 HOURS NON-STANDARD, First dose on Mon05/09/25 [id number], Until Discontinued, Infuse STAT doses over 30 minutes. Infuse other doses over 4 hours., On hold since Mon05/12/2025 at 0808 until manually unheld * 0055 ($$New Bag$$ - Provider: Heladio Sandra RN) * 0600 (Stopped - Provider: Heladio Sandra RN) * 1155 ($$New Bag$$ - Provider: Tameka Wells RN - Comment: no iv site) * 180 ($$New Bag$$ - Provider: Tiana Storm RN - Comment: late on previous dose) * 1835 (Paused - Provider: Terrie Hunt RN) * 1838 (Restarted - Provider: Terrie Hunt RN) * 2017 (Paused - Provider: Terrie Hunt RN) * 2026 (Restarted - Provider: Terrie Hunt RN) * 2027 (Stopped - Provider: Terrie Hunt RN) * 2303 (Not Given - Provider: Solitario Gonzalez RN - Reason: Patient/family refused) * 0803 (Not Given - Provider: Terrie Hunt RN - Reason: Patient/family refused) * 0808 (Held by provider - Provider: Rafaela Garcia MD - Reason: Other) * 1010 (Unheld by provider - Provider: Rafaela Garcia MD) collagenase (SANTYL) ointment 1 Application 1 Application, Topical, DAILY, First dose on Mon05/09/25 at 0900, Until Discontinued, Patient may self-administer. Apply to foot wound * 1156 (Given - Provider: Tameka Wells RN) * 1052 (Given - Provider: Terrie Hunt RN) * 0900 (Canceled Entry - Provider: System Discharge - Comment: Automatically canceled at discontinue of medication order) Ipratropium-albuterol (DUONEB) 0.5-2.5 (3) MG/3ML nebulizer solution 3 mL 3 mL, Nebulization, EVERY 6 HOURS, First dose on Mon05/09/25 at 0800, Until Discontinued * 0233 (Given - Provider: Ben Stewart RCP) * 0823 (Given - Provider: Samuel Kenyon, [employer]) * 1434 (Given - Provider: Samuel Kenyon, [employer]) * 2139 (Given - Provider: Sindy Swann RCP) * 0245 (Not Given - Provider: Ben Stewart RCP - Reason: Patient/family refused) * 0759 (Given - Provider: Radha Bucio RCP) * 1220 (Given - Provider: Radha Bucio RCP) * 2007 (Given - Provider: Ben Stewart RCP) * 0140 (Given - Provider: Ben Stewart RCP) * 0821 (Given - Provider: Jessie Walton RCP) * 1319 (Not Given - Provider: Jessie Walton RCP - Reason: Patient not available - Comment: not it room) Losartan (COZAAR) tablet 25 mg 25 mg, Oral, DAILY, First dose on Mon05/09/25 at 0900, Until Discontinued * 1002 (Given - Provider: Tameka Wells RN) * 1044 (Given - Provider: Terrie Hunt RN) * 0921 (Given - Provider: Terrie Hunt, VAN) Metoprolol (LOPRESSOR) tablet 50 mg 50 mg, Oral, 2 TIMES DAILY, First dose on Mon05/09/25 at 0900, Until Discontinued * 1004 (Given - Provider: Tameka Wells RN) * 1819 (Given - Provider: Tameka Wells RN) * 1044 (Given - Provider: Terrie Hunt RN) * 1737 (Given - Provider: Terrie Hunt, VAN) * 0921 (Given - Provider: Terrie Hunt, VAN) Pantoprazole (PROTONIX) tablet DR 40 mg 40 mg, Oral, DAILY, First dose on Mon05/09/25 at 0900, Until Discontinued, Swallow whole; do not crush or chew., Indications: Continuation of Home Therapy * 1003 (Given - Provider: Tameka Wells RN) * 1044 (Given - Provider: Terrie Hunt RN) * 0921 (Given - Provider: Terrie Hunt RN) Polyethylene glycol (MIRALAX) packet 17 g 17 g, Oral, 2 TIMES DAILY, First dose on Mon05/11/25 at 0930, Until Discontinued * 1002 (Given - Provider: Tameka Wells RN) * 1819 (Not Given - Provider: Tameka Wells RN - Reason: Patient/family refused) * 1043 (Given - Provider: Terrie Hunt, VAN) * 1737 (Given - Provider: Terrie Hunt, VAN) * 0920 (Given - Provider: Terrie Hunt RN) predniSONE (DELTASONE) tablet 10 mg(Linked Group 1) 10 mg, Oral, DAILY, 4 doses, First dose on Prerna 05/22/25 at 0900, Last dose on Mon05/25/25 at [...] 0900, Last dose on Mon05/13/25 at 0900 * 1003 (Given - Provider: Tameka Wells RN) * 1045 (Given - Provider: Terrie Hunt RN) * 1120 (Given - Provider: Terrie Hunt RN) predniSONE (DELTASONE) tablet 40 mg 40 mg, Oral, ONCE, 1 dose, On Mon05/13/25 at 1115 * 1115 (Canceled Entry - Provider: System Discharge [...] for this route., Indications: Peripheral Arterial Disease * 0900 (Automatically Held) * 1700 (Automatically Held) * 0808 (Unheld by provider - Provider: Rafaela Garcia MD) * 1044 (Given - Provider: Terrie Hunt RN) * 1737 (Given - Provider: Terrie Hunt RN) * 0921 (Given - Provider: Terrie Hunt RN) Senna (SENOKOT) tablet 8.6 mg 8.6 mg, Oral, 2 TIMES DAILY, First dose (after last modification) on Mon05/11/25 at 0930, Until Discontinued * 1003 (Given - Provider: Tameka Wells RN) * 1819 (Not Given - Provider: Tameka Wells RN - Reason: Patient/family refused) * 1052 (Not Given - Provider: Terrie Hunt RN - Reason: Patient/family refused) * 1759 (Not Given - Provider: Terrie Hunt RN - Reason: Patient/family refused) * 0926 (Not Given - Provider: Terrie Hunt RN - Reason: Patient/family refused) Tamsulosin HCl (FLOMAX) capsule 0.4 mg 0.4 mg, Oral, DAILY, First dose on Mon05/09/25 at 0900, Until Discontinued, If giving via enteral tube: May add capsule contents to apple juice or applesauce. Do not crush or chew the pellets and coating. * 1003 (Given - Provider: Tameka Wells RN) * 1044 (Given - Provider: Terrie Hunt RN) * 0921 (Given - Provider: Terrie Hunt RN) tranexamic acid solution for nebulization 500 mg (CANCELED) 500 mg, Nebulization, 2 TIMES DAILY, First dose on Mon05/10/25 at 0900, Until Discontinued, For nebulization only. * 0823 (Given - Provider: Samuel Kenyon, [employer] Perm[employer]) Vancomycin HCl in NaCl (Vancocin) 1,500 mg 290 ml premade IVPB (CANCELED) 1,500 mg, Intravenous, Administer over 2 Hours, EVERY 12 HOURS NON-STANDARD, First dose (after lastmodification) on Mon05/10/25 at 1915, Until Discontinued, Indication for treatment with Vancomycin - Culture/Source: infected bullae vs lung abscess * 1149 ($$New Bag$$ - Provider: Tameka Wells RN - Comment: no iv site) * 1825 (Stopped - Provider: Tameka Wells RN) * 2023 ($$New Bag$$ - Provider: Solitario Gonzalez RN) * 0900 (Canceled Entry - Provider: Rafaela Garcia MD - Comment: Automatically canceled at discontinue of medication order) Medication Order// Acetaminophen (TYLENOL) tablet 650 mg 650 mg, [...] Allergies, Rhinitis, Dose is for each nostril. * 1004 (Given - Provider: Tameka Wells RN) guaiFENesin-codeine 100-10 MG/5ML oral solution SOLN 10 mL 10 mL, Oral, EVERY 4 HOURS NEEDED, Starting on Mon05/09/25 at 1141, Until Mon05/13/25 at 1552, Congestion, Cough * 2033 (Given - Provider: Tabby Thibodeaux, VAN) hydrOXYzine HCl (ATARAX) tablet 25 mg 25 mg, Oral, EVERY 6 HOURS NEEDED, Starting on Mon05/10/25 at 1005, Until Mon05/13/25 at 1552, Anxiety * 2116 (Given - Provider: Tabby Thibodeaux, VAN) Lactulose (CHRONULAC) oral solution 20 g 20 g, Oral, 2 TIMES DAILY NEEDED, Starting on Mon05/11/25 at 0916, Until Mon05/13/25 at 1552, Constipation 1st Line Melatonin tablet 6 mg 6 mg, Oral, DAILY AT BEDTIME NEEDED, Starting on Mon05/09/25 at 0220, Until Mon05/13/25 at 1552,Insomnia * 2154 (Given - Provider: Brenna Swain RN) * 211 (Given - Provider: Tabby Thibodeaux, VAN) Ondansetron [...] mg from all sources in 24 hours. * 0120 (Given - Provider: Solitario Gonzalez RN) * 2116 (Given - Provider: Tabby Thibodeaux RN) Sodium chloride 0.9% IV solution 250 mL Intravenous, at 20 mL/hr, NEEDED, Starting on Mon05/09/25 at 0220, Until Mon05/13/25 at 1552, Carrier Fluid - See Admin. Inst, 250mL 0.9NS to be used as carrier fluid for intermittent small volumeor piggyback medication administration as needed. Infusion rate of the carrier fluid should be set at 20 mL/hr unless the rate as the intermittent medication is less than 20 mL/hr. For intermittent medications with a rate less than 20 mL/hr set the carrier fluid at that rate of the intermittent or piggy back medication. * 1147 (Restarted - Provider: Tameka Wells RN) * 1430 (Stopped - Provider: Tameka Wells RN) Order Group 1: predniSONE (DELTASONE) tablet 40 [...] Until Mon05/13/25 at 1552, Nausea / Vomiting Medication Order/ aspirin chewable tablet 81 mg 81 mg, Oral, DAILY, First dose on Mon05/09/25 at 0900, Until Discontinued * 0900 (Automatically Held) * 0808 (Unheld by provider - Provider: Rafaela Garcia MD) * 1044 (Given - Provider: Terrie Hunt RN) * 0921 (Given - Provider: Terrie Hunt, VAN) Atorvastatin (LIPITOR) tablet 80 mg 80 mg, Oral, DAILY, First dose on Mon05/09/25 at 0900, Until Discontinued * 1002 (Given - Provider: Tameka Wells RN) * 1051 (Given - Provider: Terrie Hunt RN) * 1119 (Given - Provider: Terrie Hunt RN) ceFEPIme (MAXIPIME) 2 g in dextrose 100 ml premix IVPB (CANCELED) 2 g, Intravenous, Administer over 4 Hours, EVERY 8 HOURS NON-STANDARD, First dose on Mon05/09/25 [id number], Until Discontinued, Infuse STAT doses over 30 minutes. Infuse other doses over 4 hours., On hold since Mon05/12/2025 at 0808 until manually unheld * 0055 ($$New Bag$$ - Provider: Heladio Sandra RN) * 0600 (Stopped - Provider: Heladio Sandra RN) * 1155 ($$New Bag$$ - Provider: Tameka Wells RN - Comment: no iv site) * 180 ($$New Bag$$ - Provider: Tiana Storm RN - Comment: late on previous dose) * 183 (Paused - Provider: Terrie Hunt RN) * 1838 (Restarted - Provider: Terrie Hunt RN) * 2017 (Paused - Provider: Terrie Hunt RN) * 2026 (Restarted - Provider: Terrie Hunt RN) * 2027 (Stopped - Provider: Terrie Hunt RN) * 2303 (Not Given - Provider: Solitario Gonzalez RN - Reason: Patient/family refused) * 0803 (Not Given - Provider: Terrie Hunt RN - Reason: Patient/family refused) * 0808 (Held by provider - Provider: Rafaela Garcia MD - Reason: Other) * 1010 (Unheld by provider - Provider: Rafaela Garcia MD) collagenase (SANTYL) ointment 1 Application 1 Application, Topical, DAILY, First dose on Mon05/09/25 at 0900, Until Discontinued, Patient may self-administer. Apply to foot wound * 1156 (Given - Provider: Tameka Wells RN) * 1052 (Given - Provider: Terrie Hunt RN) * 0900 (Canceled Entry - Provider: System Discharge - Comment: Automatically canceled at discontinue of medication order) Ipratropium-albuterol (DUONEB) 0.5-2.5 (3) MG/3ML nebulizer solution 3 mL 3 mL, Nebulization, EVERY 6 HOURS, First dose on Mon05/09/25 at 0800, Until Discontinued * 0233 (Given - Provider: Ben Stewart RCP) * 0823 (Given - Provider: Samuel Kenyon, [employer]) * 1434 (Given - Provider: Samuel Kenyon, [employer]) * 2139 (Given - Provider: Sindy Swann RCP) * 0245 (Not Given - Provider: Ben Stewart RCP - Reason: Patient/family refused) * 0759 (Given - Provider: Radha Bucio RCP) * 1220 (Given - Provider: Radha Bucio RCP) * 2007 (Given - Provider: Ben Stewart RCP) * 0140 (Given - Provider: Ben Stewart RCP) * 0821 (Given - Provider: Jessie Walton RCP) * 1319 (Not Given - Provider: Jessie Walton RCP - Reason: Patient not available - Comment: not it room) Losartan (COZAAR) tablet 25 mg 25 mg, Oral, DAILY, First dose on Mon05/09/25 at 0900, Until Discontinued * 1002 (Given - Provider: Tameka Wells RN) * 1044 (Given - Provider: Terrie Hunt RN) * 0921 (Given - Provider: Terrie Hunt RN) Metoprolol (LOPRESSOR) tablet 50 mg 50 mg, Oral, 2 TIMES DAILY, First dose on Mon05/09/25 at 0900, Until Discontinued * 1004 (Given - Provider: Tameka Wells RN) * 1819 (Given - Provider: Tameka Wells RN) * 1044 (Given - Provider: Terrie Hunt RN) * 1737 (Given - Provider: Terrie Hunt RN) * 0921 (Given - Provider: Terrie Hunt, VAN) Pantoprazole (PROTONIX) tablet DR 40 mg 40 mg, Oral, DAILY, First dose on Mon05/09/25 at 0900, Until Discontinued, Swallow whole; do not crush or chew., Indications: Continuation of Home Therapy * 1003 (Given - Provider: Tameka Wells RN) * 1044 (Given - Provider: Terrie Hunt RN) * 0921 (Given - Provider: Terrie Hunt RN) Polyethylene glycol (MIRALAX) packet 17 g 17 g, Oral, 2 TIMES DAILY, First dose on 05/11/25 at 0930, Until Discontinued * 1002 (Given - Provider: Tameka Wells RN) * 1819 (Not Given - Provider: Tameka Wells RN - Reason: Patient/family refused) * 1043 (Given - Provider: Terrie Hunt RN) * 1737 (Given - Provider: Terrie Hunt RN) * 0920 (Given - Provider: Terrie Hunt RN) predniSONE (DELTASONE) tablet 10 mg(Linked Group 1) [...] 0900, Last dose on Mon05/13/25 at 0900 * 1003 (Given - Provider: Tameka Wells RN) * 1045 (Given - Provider: Terrie Hunt RN) * 1120 (Given - Provider: Terrie Hunt RN) predniSONE (DELTASONE) tablet 40 mg 40 mg, Oral, ONCE, 1 dose, On Mon05/13/25 at 1115 * 1115 (Canceled Entry - Provider: System Discharge [...] for this route., Indications: Peripheral Arterial Disease * 0900 (Automatically Held) * 1700 (Automatically Held) * 0808 (Unheld by provider - Provider: Rafaela Garcia MD) * 1044 (Given - Provider: Terrie Hunt RN) * 1737 (Given - Provider: Terrie Hunt RN) * 0921 (Given - Provider: Terrie Hunt RN) Senna (SENOKOT) tablet 8.6 mg 8.6 mg, Oral, 2 TIMES DAILY, First dose (after last modification) on Mon05/11/25 at 0930, Until Discontinued * 1003 (Given - Provider: Tameka Wells RN) * 1819 (Not Given - Provider: Tameka Wells RN - Reason: Patient/family refused) * 1052 (Not Given - Provider: Terrie Hunt RN - Reason: Patient/family refused) * 1759 (Not Given - Provider: Terrie Hunt RN - Reason: Patient/family refused) * 0926 (Not Given - Provider: Terrie Hunt RN - Reason: Patient/family refused) Tamsulosin HCl (FLOMAX) capsule 0.4 mg 0.4 mg, Oral, DAILY, First dose on Mon05/09/25 at 0900, Until Discontinued, If giving via enteral tube: May add capsule contents to apple juice or applesauce. Do not crush or chew the pellets and coating. * 1003 (Given - Provider: Tameka Wells RN) * 1044 (Given - Provider: Terrie Hunt, VAN) * 0921 (Given - Provider: Terrie Hunt RN) tranexamic acid solution for nebulization 500 mg (CANCELED) 500 mg, Nebulization, 2 TIMES DAILY, First dose on Mon05/10/25 at 0900, Until Discontinued, For nebulization only. * 0823 (Given - Provider: Samuel Kenyon, [employer] Perm[employer]) Vancomycin HCl in NaCl (Vancocin) 1,500 mg 290 ml premade IVPB (CANCELED) 1,500 mg, Intravenous, Administer over 2 Hours, EVERY 12 HOURS NON-STANDARD, First dose (after lastmodification) on Mon05/10/25 at 1915, Until Discontinued, Indication for treatment with Vancomycin - Culture/Source: infected bullae vs lung abscess * 1149 ($$New Bag$$ - Provider: Tameka Wells RN - Comment: no iv site) * 1825 (Stopped - Provider: Tameka Wells RN) * 2023 ($$New Bag$$ - Provider: Solitario Gonzalez RN) * 0900 (Canceled Entry - Provider: Rafaela Garcia MD - Comment: Automatically canceled at discontinue of medication order) Medication Order// Acetaminophen (TYLENOL) tablet 650 mg 650 mg, [...] Allergies, Rhinitis, Dose is for each nostril. * 1004 (Given - Provider: Tameka Wells RN) guaiFENesin-codeine 100-10 MG/5ML oral solution SOLN 10 mL 10 mL, Oral, EVERY 4 HOURS NEEDED, Starting on Mon05/09/25 at 1141, Until Mon05/13/25 at 1552, Congestion, Cough * 2033 (Given - Provider: Tabby Thibodeaux, VAN) hydrOXYzine HCl (ATARAX) tablet 25 mg 25 mg, Oral, EVERY 6 HOURS NEEDED, Starting on Mon05/10/25 at 1005, Until Mon05/13/25 at 1552, Anxiety * 2116 (Given - Provider: Tabby Thibodeaux, VAN) Lactulose (CHRONULAC) oral solution 20 g 20 g, Oral, 2 TIMES DAILY NEEDED, Starting on Mon05/11/25 at 0916, Until Mon05/13/25 at 1552, Constipation 1st Line Melatonin tablet 6 mg 6 mg, Oral, DAILY AT BEDTIME NEEDED, Starting on Mon05/09/25 at 0220, Until Mon05/13/25 at 1552,Insomnia * 2154 (Given - Provider: Brenna Swain RN) * 2116 (Given - Provider: Tabby Thibodeaux, VAN) [...] mg from all sources in 24 hours. * 0120 (Given - Provider: Solitario Gonzalez RN) * 2116 (Given - Provider: Tabby Thibodeaux, VAN) Sodium chloride 0.9% IV solution 250 mL Intravenous, at 20 mL/hr, NEEDED, Starting on Mon05/09/25 at 0220, Until Mon05/13/25 at 1552, Carrier Fluid - See Admin. Inst, 250mL 0.9NS to be used as carrier fluid for intermittent small volumeor piggyback medication administration as needed. Infusion rate of the carrier fluid should be set at 20 mL/hr unless the rate as the intermittent medication is less than 20 mL/hr. For intermittent medications with a rate less than 20 mL/hr set the carrier fluid at that rate of the intermittent or piggy back medication. * 1147 (Restarted - Provider: Tameka Wells RN) * 1430 (Stopped - Provider: Tameka Wells RN) Order Group 1: predniSONE (DELTASONE) tablet 40 [...] Prerna 05/22/25 at 0900, Last dose on Mon05/25/25 at [...] Ordered Prescriptions (unrec ognized section and content) PrescriptionSigDispensedRefillsStart DateEnd Date benzonatate (TESSALON) 100 MG capsule Take 1 capsule by mouth 3 times daily as needed for Cough 15 capsule levoFLOXacin (LEVAQUIN) 750 MG tablet Take 1 tablet by mouth daily for 5 days 5 tablet /rescriptionSigDispensedRefillsStart DateEnd Date benzonatate (TESSALON) 100 MG capsule Take 1 capsule by mouth 3 times daily as needed for Cough 15 capsule levoFLOXacin (LEVAQUIN) 750 MG tablet Take 1 tablet by mouth daily for 5 days 5 tablet Dialysis Access Sites (unrec ognized section and content) TypeStatusLocationPlacement DateRemoval DateSheath (CV Access Device) 08/09/18 1506 Arterial 6 Fr 11 cm Right femoral Label [id number] FOR RECORDS PERTAINING TO PATIENTS WHO ARE [...] BE BASED ON THE PRIMARY CLINICAL RECORDS. [employer] [facility]. provides no warranty or guarantee of the accuracy or completeness of information in this document.
== END 2025-06-18 10:33 | disposition home or self-care (01) ==
LOC: WC 10:32
PROVIDERS: PCP Family Medicine; Visit Provider Podiatrist Foot & Ankle Surgery
DX: I70.261 Atherosclerosis of native arteries of extremities with gangrene, right leg (principal); L97.516 Non-pressure chronic ulcer of other part of right foot with bone involvement without evidence of necrosis
CPT/HCPCS: 11044

== ENCOUNTER 2025-06-18 12:53 | Outpatient (REF) | payer MEDICARE, SELFPAY ==
--- OUTSIDE RECORDS SUMMARY | 2025-06-05 12:51 | XMS_ITS | Encounter Summary ---
Author Organization [facility] Address [address] [place] [address] Care Team Providers Care News Wire Photo Operator Name Role Phone Nikko Bird MD Primary Care Provider [phone] System, Provider Not In Unavailable Unavaila ble Reason for Referral * Cardio (Routine) - ClosedSpecialtyDiagnoses / ProceduresReferred By Contact Referred To ContactCardiology Diagnoses PVD (peripheral vascular disease) Procedures Ultrasound ankle / brachial indices extremity complete Gracy Millan MD [address] [place] [address] Phone: tel: fax: Referral IDStatusReasonStart DateExpiration DateVisits RequestedVisits [id number]/6/202510/ Reason for Visit * Cardio (Routine) - ClosedSpecialtyDiagnoses / ProceduresReferred By Contact Referred To ContactCardiology Diagnoses PVD (peripheral vascular disease) Procedures Ultrasound ankle / brachial indices extremity complete Gracy Millan MD [address] [place], [place] [id number] Phone: tel: fax: Referral IDStatusReasonStart DateExpiration DateVisits RequestedVisits [id number]/[id number]/6/202611 Encounter Details DateTypeDepartmentCare Team (Latest Contact Info)Aevmjjpykpr37/09/2025 12:51 PM EDT - 06/05/2025 11:59 PM EDTHospital Encounter [facility] [address], 3rd [place] [address] Gracy Millan MD [address] [facility] [address] [id number] Discharge Disposition: Home Social History Tobacco UseTypesPacks/DayYears UsedDateSmoking Tobacco: NeverSmokeless Tobacco: NeverAlcohol UseStandard Drinks/WeekCommentsNot Currently0 (1 standard drink = 0.6 oz pure alcohol)[facility] UtilitiesAnswerDate RecordedIn the past 12 months has the [employer], gas, oil, or water [employer] threatened to shut off services in your [...] or living in a senior living (including now)?No03/14/2025Sex and Gender InformationValueDate Recorded Sex Assigned at BirthNot on fileLegal NylEnqm6312/21/2013 2:37 PM EDTGender VnomdmieIgtp32/08/2019 8:23 PM ESTSexual WzuumbqnyokNwbhmcdt37/08/2019 8:23 PM ESTdocumented as of this encounter [...] a day . naloxone (NARCAN) 4 mg/actuation [place] Administer 1 spray into one nostril for [...] Procedures Procedure NamePriorityDate/TimeAssociated DiagnosisCommentsUS ANKLE/BRACHIAL INDICES EXTREMITY XURXFBTWfncbzk75/09/2025 1:29 PM EDT PVD (peripheral vascular disease) [...] 1940 Gender: ? Male Accession #: ? [id number] Exam Date: ? 06/05/2025 1:16 PM Patient Status: ? OUTPATIENT Site Location: ? Indications ?I73.9 - PVD (peripheral vascular disease) Procedure Description ??29370 Limited bilateral noninvasive physiologic studies of upper or lower extremity arteries with bidirectional Doppler/PVR waveform analysis at 1-2 levels. Vice President Of Recruiting: ? Ginette Gonzalez RDMS, RVS Staff Ordering Provider: ? Gracy Millan MD, RPVI Conclusions ??* Right. ??* Right ankle brachial index is normal. YAIMLE is 0.90. ??* Mild small vessel disease at the transmetatarsal level in the right foot. ??* Right 2nd digit PPG is performed due to wound on 1st digit, abnormal PPG waveform is noted. ??* Left. ??* Left ankle brachial index indicates mild peripheral artery disease. ??YAMLIE is 0.80. Based on PVR, doppler waveforms, and pressures mild to moderate peripheral artery disease is suggested. ??* Left transmetatarsal level not obtained due to amputation. ??* Left toe brachial index is not obtained due to amputation. ??* Previous YAMILE done at [facility]- Right: 0.96 Left: 0.57. Recommendations ??* This [...] Segmental BP RIGHT Brachial A mm[facility] RIGHT DRY CLEANING ATTENDANT mmH RIGHT DRY CLEANING ATTENDANT Index: 0.90 RIGHT DPA mm[facility] RIGHT DPA Index: 0.80 RIGHT YAMILE Index: 0.90 LEFT Brachial A mm[facility] LEFT DRY CLEANING ATTENDANT Index: 0.65 LEFT DRY CLEANING ATTENDANT mmH LEFT DPA Index: 0.80 LEFT DPA mm[facility] LEFT YAMILE Index: 0.80 Doppler RIGHT DRY CLEANING ATTENDANT Waveform: Multiphasic RIGHT DPA Waveform: Multiphasic LEFT DRY CLEANING ATTENDANT Waveform: Multiphasic LEFT DPA Waveform: Multiphasic , [...] - PVD (peripheral vascular disease) Procedure Description 11734 Limited bilateral noninvasive physiologic studies of upper orlower extremity arteries with bidirectional Doppler/PVR waveform analysis at1-2 levels. Vice President Of Recruiting: Ginette Gonzalez RDMS, RVS Staff Ordering Provider: Garcy Millan MD, RPVI Conclusions * Right. * [...] to amputation. * Previous YAMILE done at [facility]- Right: 0.96 Left: 0.57. Recommendations * This [...] Segmental BP RIGHT Brachial A mmH RIGHT DRY CLEANING ATTENDANT mmH RIGHT DRY CLEANING ATTENDANT Index: 0.90 RIGHT DPA mm[facility] RIGHT DPA Index: 0.80 RIGHT YAMILE Index: 0.90 LEFT Brachial A mmH LEFT DRY CLEANING ATTENDANT Index: 0.65 LEFT DRY CLEANING ATTENDANT mmH LEFT DPA Index: 0.80 LEFT DPA mm[facility] LEFT YAMILE Index: 0.80 Doppler RIGHT DRY CLEANING ATTENDANT Waveform: Multiphasic RIGHT DPA Waveform: Multiphasic LEFT DRY CLEANING ATTENDANT Waveform: Multiphasic LEFT DPA Waveform: Multiphasic , [...] Team MemberRelationshipSpecialtyStart DateEnd Date Nikko Bird MD [address] [place] [address] PCP - GeneralFamily Medicine09/04/18 System, Provider Not In Cardiologist11/09/22documented as of this encounter
--- OUTSIDE RECORDS SUMMARY | 2025-06-10 10:30 | XMS_ITS | Encounter Summary ---
Author Organization [facility] Address [address] [place] [address] Care Team Providers Care Multi Spindle Operator Name Role Phone Nikko Bird MD Unavailable Nikko Bird MD Primary Care Provider [phone] Elaine Saab LPN Unavailable Reason for Visit * ReasonCommentsMedicare Annual Wellness Visit Subsequent Encounter Details DateTypeDepartmentCare Team (Latest Contact Info)Frizvjtonax04/14/2025 10:30 AM EDTOffice Visit [facility] [address] [facility] [address] [place] [address] Nikko Bird MD 112 [facility] [address] [place] [address] Routine general medical examination at health care facility (Primary Dx); Screening for lipid disorders; Medicare annual wellness visit, subsequent; 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HCC); Encounter for immunization; Opioid dependence, uncomplicated (HCC); Acute eczematoid otitis externa of right ear Social History Tobacco UseTypesPacks/DayYears UsedDateSmoking Tobacco: NeverSmokeless Tobacco: NeverAlcohol UseStandard Drinks/WeekCommentsNot Currently0 (1 standard drink = 0.6 oz pure alcohol)Coffee 1-2 cups per [id number] Health LiteracyAnswerDate RecordedHow often do you need to have someone help you when you read instructions, pamphlets, or other written material from your doctor or pharmacy? Gsrbjf4406/21/2024Humiliation, Afraid, Rape, and Kick questionnaireAnswerDate RecordedWithin the last year, have you been afraid of your partner or ex-partner?No06/21/2024Within the last year, have you been humiliated or emotionally abused in other ways by your partner or ex-partner?No06/21/2024 Within the last year, have you been kicked, hit, slapped, or otherwise physically hurt by your partner or ex-partner?No06/21/2024Within the last year, have you been raped or forced to have any kind of sexual activity by your part ner or ex-partner?No06/21/2024UDIT-CAnswerDate RecordedQ1: How often do you have a drink containing alcohol?Never06/21/2024Q2: How many drinks containing alcohol do you have on a typical day when you are drinking?Patient does not drink06/21/2024Q3: How often do you have six or more drinks on one occasion? Never06/21/2024Overall Financial Resource Strain (CARDIA)AnswerDate RecordedHow hard is it for you to pay for the very basics like food, housing, medical care, and heating?Not hard at all06/21/2024HQ-2AnswerDate RecordedPatient Health Questionnaire-2 [id number] [place] of Occupational Health - Occupational Stress QuestionnaireAnswerDate RecordedDo you feel stress - tense, restless, nervous, or anxious, or unable to sleep at night because yourmind is troubled all the time - these days?Not at all06/21/2024Exercise Vital SignAnswer Date RecordedOn average, how many days per week do you engage in moderate to strenuous exercise (like a brisk walk)?7 days06/21/2024On average, how many minutes do you engage in exercise at this level?10 min06/21/2024Hunger Vital SignAnswerDate RecordedWithin the past 12 months, you worried that your food would run out before you got the money to buymore.Never true06/21/2024Within the past 12 months, the food you bought just didn't last and you didn't have money to get more.Never true06/21/2024RAPARE - TransportationAnswerDate RecordedIn the past 12 months, has lack of transportation kept you from medical appointments or from getting medications?No06/21/2024In the past 12 months, has lack of transportation kept you from meetings, work, or from getting things needed for daily living?No06/21/2024Housing Stability Vital SignAnswerDate RecordedIn the last 12 months, was there a time when you were not able to pay the mortgage or rent on time?No06/21/2024In the past 12 months, how many times have you moved where you were living?t any time in the past 12 months, were you homeless or living in a mcc (including now)?No06/21/2024Sex and Gender InformationValueDate RecordedSex Assigned at BirthNot on fileLegal HfyYwfk7911/09/2022 7:18 PM EDTGender IdentityNot on fileSexual OrientationNot on filedocumented as of this encounter Last Filed Vital Signs Vital SignReadingTime TakenCommentsBlood Vaylvnvm518/6806/10/2025 10:17 AM EDT Qsxqi645406/10/2025 10:17 AM EDTTemperature--Respiratory Rate--Oxygen Saturation 94%06/10/2025 10:17 AM EDTInhaled Oxygen Concentration--Cphpoe974 kg (243 lb) 06/10/2025 10:17 AM BLPGnkucz905 cm (6' 2 )06/10/2025 10:17 AM EDTBody Mass Index31.210 10:17 AM EDTdocumented in this encounter Functional Status * Over the past 2 weeks, how often have you been bothered by any of the following problems?QuestionAnswerDate of AssessmentAuthorLittle interest or pleasure in doing thingsNot at all06/10/2025 10:00 AM Lorraine Marks MA Feeling down, depressed, or hopelessNot at all06/10/2025 10:00 AM Lorraine Marks MAPatient Health Questionnaire-2 Znimr974 10:00 AM Lorraine Marks MA documented as of this encounter Progress Notes * Nikko Bird MD - 06/10/2025 10:30 AM EDT Images from the original note were not included. Subjective : Chief Complaint: Tristin Gray is an 85 y.o. male here for an annual wellness visit. Doing better with lungs Cough resolved I have reviewed and reconciled the history and medication list with the patient today. Current Outpatient Medications Medication Sig Dispense Refill albuterol HFA 90 mcg/act inhaler Inhale 1 puff every 4 (four) hours if needed for wheezing or shortness of breath 76.5 Unspecified 3 aspirin 81 MG EC tablet Take 81 mg by mouth in the morning. atorvastatin (Lipitor) 80 MG tablet benzonatate (Tessalon) 100 MG capsule Three times daily Xwxhbte-Nazvaxwkeon-Vyzowaagtr (Breztri Aerosphere) 160-9-4.8 MCG/ACT aerosol Inhale 1 puff in the morning and at noon 18 g 0 fluticasone (Flonase) 50 MCG/ACT nasal spray [...] the evening and 3 mL before bedtime. 270 mL 2 levoFLOXacin (Levaquin) 500 MG tablet Take 1 tablet (500 mg) by mouth Daily for 14 days 14 tablet 0 losartan (Cozaar) 50 MG tablet Take 1 tablet (50 mg) by mouth Daily 100 tablet 3 metoprolol tartrate (Lopressor) 50 [...] pain or moderate pain 120 tablet 0 polyethylene glycol, PEG, 3350 (Miralax) 17 g packet Take 17 g by mouth in the morning. predniSONE (Deltasone) 10 MG tablet predniSONE (Deltasone) 20 MG tablet rivaroxaban (Xarelto) 2.5 MG tablet TAKE 1 TABLET TWICE DAILY 180 tablet 3 Santyl 250 UNIT/GM ointment Apply 1 application topically Daily tamsulosin (Flomax) 0.4 MG 24 hr capsule Take 1 capsule (0.4 mg) by mouth in the morning and 1 capsule (0.4 mg) before bedtime. (Patient taking differently: Take 0.4 mg by mouth Daily) 200 capsule 0 zolpidem (Ambien) 10 MG tablet Take 1 tablet (10 mg) by mouth as needed at bedtime for sleep 30 tablet 5 Menthol-Zinc Oxide (Calmoseptine) 0.44-20.6 % ointment Apply 1 Application topically every 6 (six) hours if needed (Barrier Cream) 100 g 3 No current facility-administered medications for this visit. Review of Systems Constitutional: Negative for chills, fatigue, fever and unexpected weight change. Respiratory: Negative for cough. Cardiovascular: Negative for chest pain. Gastrointestinal: Negative for abdominal pain, blood in stool, constipation, diarrhea, nausea and vomiting. Genitourinary: Negative for dysuria, enuresis, frequency and hematuria. Musculoskeletal: Negative for back pain. Neurological: Negative for dizziness, tremors, syncope, facial asymmetry and speech difficulty. Psychiatric/Behavioral: Negative for agitation, behavioral problems, confusion and dysphoric mood. The patient is not nervous/anxious. List of current healthcare providers: Patient Care Team: Nikko Bird MD as PCP - General (Family Medicine) Nikko Bird MD as PCP - Fannie Saab LPN Medicare Annual Visit Over the past 2 weeks, how often have you been bothered by any of the following problems? Little interest or pleasure in doing things: Not at all Feeling down, depressed, or hopeless: Not at all Patient Health Questionnaire-2 Score: 0 [place] Fall Risk History of [...] apparent by direct observation Three Word Registration: Village, Kitchen, Baby Clock Drawing: Normal Clock - 2 Three Word Recall: All 3 words correct - 3 Total Score (0-5 Points): 5 Pain Assessment Pain Score: 0 - No pain Advance Care Planning Do you have a living will?: Yes Do you have a medical power of deputy prosecuting attorney?: Yes Objective : BP 132/68 Pulse 84 Ht 6' 2 Wt 243 lb SpO2 94% BMI 31.20 kg/m?? No results found. Physical Exam Vitals reviewed. Constitutional: General: He is not in acute distress. Appearance: Normal appearance. HENT: Head: Normocephalic and atraumatic. Ears: Comments: Floor has some raw and red Eyes: General: No scleral icterus. Neck: Vascular: No carotid bruit. Cardiovascular: Rate and Rhythm: Normal rate and regular rhythm. Pulses: Normal pulses. Heart sounds: No murmur heard. Pulmonary: Effort: Pulmonary effort is normal. No respiratory distress. Breath sounds: Normal breath sounds. No wheezing, rhonchi or rales. Musculoskeletal: General: No swelling. Right lower le+ Pitting Edema present. Right foot: Swelling and tenderness present. Abnormal pulse (DP 1+, difficult to palpate due to pitting edema). Comments: Right foot with mild erythema. Left AFO Skin: General: Skin is warm and dry. [...] Affect: Mood normal. Behavior: Behavior normal. Assessment/Plan : The following health maintenance schedule was reviewed with the patient and provided in printed form in the after visit summary: Health Maintenance Topic Date Due Medicare Annual Wellness (AWV) 04/26/2025 Influenza Vaccine Completed Pneumococcal Vaccine: 65+ Years Completed Advance Care Planning Patient willing to discuss ACP. If in place, renew periodically. If not in place, recommend obtaining ACP. Assessment/Plan Problem List Items Addressed This Visit Medicare annual wellness visit, subsequent Colonoscopy every 10 years or Cologuard every 3 years ages 50-75 Flu Vaccine yearly Pneumovax and Prevnar Mammo yearly for women and PSA yearly for men Labs/Screening yearly to rule out Diabetes, Chronic Kidney disease and liver disease Hepatitis Screen forat risk populations Shingles vaccine after65 if indicated Tetanus Vaccine every 10 years Lipids yearly under the age of 75 If Smoking history: one time CT scan of chest and Ultrasound of Aorta to screen for Anuerysm Relevant Orders Lipid panel Opioid dependence, uncomplicated (HCC) Medication choice and dosage is appropriate for [...] OARRS Report was reviewed for this patient. Other Visit Diagnoses Routine general medical examination at health care facility - Primary Screening for lipid disorders Relevant Orders Lipid panel 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HCC) Relevant Medications Menthol-Zinc Oxide (Calmoseptine) 0.44-20.6 % ointment Encounter for immunization Relevant Orders Flu vaccine, high dose seasonal, PF (AFE994) (Fluzone High Dose) (Completed) Orders Placed This Encounter Procedures Flu vaccine, high dose seasonal, PF (MCG133) (Fluzone High Dose) Lipid panel Standing Status: Future Number of Occurrences: 1 Expected Date: 06/10/2025 Expiration Date: 06/10/2026 Electronically signed by Nikko Bird MD on June 10, 2025 * Nikko Bird MD - 06/10/2025 10:26 AM EDTAssociated Problem(s): Opioid dependence, uncomplicated (HCC) Medication choice and dosage is appropriate for [...] Report was reviewed for this patient. * Nikko Bird MD - 06/10/2025 10:25 AM EDTAssociated Problem(s): Medicare annual wellness visit, subsequent Colonoscopy every 10 years or Cologuard every 3 years ages 50-75 Flu Vaccine yearly Pneumovax and Prevnar Mammo yearly for women and PSA yearly for men Labs/Screening yearly to rule out Diabetes, Chronic Kidney disease and liver disease Hepatitis Screen forat risk populations Shingles vaccine after65 if indicated Tetanus Vaccine every 10 years Lipids yearly under the age of 75 If Smoking history: one time CT scan of chest and Ultrasound of Aorta to screen for Anuerysm documented in this encounter Plan of Treatment NameTypePriorityAssociated DiagnosesOrder ScheduleLipid panelLabRoutine Screening for lipid disorders Medicare annual wellness visit, subsequent Expected: 06/10/2025 (Approximate), Expires: 06/10/2026documented as of this encounter Visit Diagnoses Diagnosis Routine general medical examination at health care facility- Primary Routine general medical examination at a health care facility Screening for lipid disorders Medicare annual wellness visit, subsequent 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HCC) Encounter for immunization Opioid dependence, uncomplicated (HCC) Acute eczematoid otitis externa of right ear documented in this encounter Additional Health Concerns AssessmentNoted TimePHQ-9 Depression Total Score: 9:00 AM EDT documented as of this encounter Care Teams Team MemberRelationshipSpecialtyStart DateEnd Date Nikko Bird MD [address] [address] PCP - [place] [address] Nikko Bird MD [address] [place] [address] PCP - [facility]Che[facility] Centerly [facility]03/09/23 Elaine Saab LPN [address] [place] [address] [place] [address] 11/15/24documented as of this encounter
--- OUTSIDE RECORDS SUMMARY | 2025-06-17 13:06 | XMS_ITS | Encounter Summary ---
Author Organization [facility] Address [address] [place] [address] Care Team Providers Care Manager Corporate Name Role Phone Nikko Bird MD Primary Care Provider [phone] System, Provider Not In Unavailable Unavaila ble Reason for Referral * Cardio (Routine) - Pending ReviewSpecialtyDiagnoses / ProceduresReferred By ContactReferred To ContactCardiology Diagnoses PVD (peripheral vascular disease) Procedures US Duplex Bypass Graft Right Gracy Kincaid MD [address] [place] [address] Phone: tel: fax: Referral IDStatusReasonStart DateExpiration DateVisits RequestedVisits [id number] [id number]/ Reason for Visit * Cardio (Routine) - Pending ReviewSpecialtyDiagnoses / ProceduresReferred By ContactReferred To ContactCardiology Diagnoses PVD (peripheral vascular disease) Procedures US Duplex Bypass Graft Right Gracy Kincaid MD [address] [place] [address] Phone: tel: fax: Referral IDStatusReasonStart DateExpiration DateVisits RequestedVisits [id number] [id number]/ Encounter Details DateTypeDepartmentCare Team (Latest Contact Info)Hfqoxlsoaso88/21/2025 1:06 PM EDT - 06/17/2025 11:59 PM EDTHospital Encounter [facility] [address], [address] [place] [address] Gracy Millan MD [address] [facility] [address] [place] [address] Arrived Discharge Disposition: Home Social History Tobacco UseTypesPacks/DayYears UsedDateSmoking Tobacco: NeverSmokeless Tobacco: NeverAlcohol UseStandard Drinks/WeekCommentsNot Currently0 (1 standard drink = 0.6 oz pure alcohol)[facility] UtilitiesAnswerDate RecordedIn the past 12 months has the [employer], gas, oil, or water company threatened to [...] or living in a senior care (including now)?No03/14/2025Sex and Gender InformationValueDate Recorded Sex Assigned at BirthNot on fileLegal JcvCkcm0112/21/2013 2:37 PM EDTGender KdgvxvzkSray45/08/2019 8:23 PM ESTSexual VbvjkuvbjamSlucebbb03/08/2019 8:23 PM ESTdocumented as of this encounter [...] a day . naloxone (NARCAN) 4 mg/actuation Epes Administer 1 spray into one nostril for [...] of this encounter Procedures Procedure NamePriorityDate/TimeAssociated DiagnosisCommentsUS DUPLEX BYPASS GRAFT LE LIMITED FNFHYXbvsyvl47/21/2025 2:15 PM EDT PVD (peripheral vascular disease) documented in this encounter Results * Duplex Bypass Graft Right LE (06/17/2025 2:15 PM EDT)Specimen (Source) Anatomical Location / LateralityCollection Method / VolumeCollection Time Received Time06/17/2025 1:26 PM EDT Narrative MAUROI SYNAPSE CV - 06/17/2025 2:54 PM EDT Patient Info Name: ? Tristin Gray Age: ? 85 years : ? 1940 Gender: ? Male Accession #: ? [id number] Exam Date: ? 06/17/2025 1:26 PM Patient Status: ? OUTPATIENT Site Location: ? Indications ?I73.9 - Peripheral vascular disease, ??unspecified Procedure Description ??61670 Duplex scan of lower extremity arteries or arterial bypass grafts using B-mode, color and spectral Doppler; unilateral or limited study. Hospital Coder: ? Gail SUAREZ, RVS Staff Ordering Provider: ? Gracy Millan MD, RPLUIZA Conclusions ??* Difficult exam due to leg edema and scar. ??* Patent distal superficial femoral/P1 to peroneal bypass graft. ??* Elevated velocities noted in inflow artery possibly due to mismatch in diameter versus stenosis. ??* Proximal graft has a low velocity of 25 cm/s. ??* YAMILE was done on 06/05/2025. Prior Study Date: ? 04/23/2025 Graft Measurements RIGHT Inflow Artery PSV: 154 RIGHT Inflow Artery EDV: 0 RIGHT Prox Anastomosis PSV: 67 RIGHT Prox Anastomosis EDV: 0 RIGHT Prox Graft PSV: 25 RIGHT Prox Graft EDV: 3 RIGHT Mid Graft PSV: 57 RIGHT Mid Graft EDV: 9 RIGHT Distal Graft PSV: 59 RIGHT Distal Graft EDV: 9 RIGHT Distal Anastomosis PSV: 62 RIGHT Distal Anastomosis EDV: 10 RIGHT Outflow Artery PSV: 97 RIGHT Outflow Artery EDV: 18 Report Signatures Finalized by Lencho ??Gerson ?? on 06/17/2025 02:54 PM Procedure Note Lencho Nieto MD - 06/17/2025 Patient Info Name: Tristin Gray Age: 85 years : 1940 Gender: Male Exam Date: 06/17/2025 1:26 PM Patient Status: OUTPATIENT Site Location: Indications I73.9 - Peripheral vascular disease, unspecified Procedure Description [id number] Duplex scan of lower extremity arteries or arterial bypassgrafts using B-mode, color and spectral Doppler; unilateral or limited study. Hospital Coder: Gail SUAREZ, RVS Staff Ordering Provider: Gracy Millan MD, RPLUIZA Conclusions * Difficult exam due to leg edema and scar. * Patent distal superficial femoral/P1 to peroneal bypass graft. * Elevated velocities noted in inflow artery possibly due to mismatchin diameter versus stenosis. * Proximal graft has a low velocity of 25 cm/s. * YAMILE was done on 06/05/2025. Prior Study Date: 04/23/2025 Graft Measurements RIGHT Inflow Artery PSV: 154 RIGHT Inflow Artery EDV: 0 RIGHT Prox Anastomosis PSV: 67 RIGHT Prox Anastomosis EDV: 0 RIGHT Prox Graft PSV: 25 RIGHT Prox Graft EDV: 3 RIGHT Mid Graft PSV: 57 RIGHT Mid Graft EDV: 9 RIGHT Distal Graft PSV: 59 RIGHT Distal Graft EDV: 9 RIGHT Distal Anastomosis PSV: 62 RIGHT Distal Anastomosis EDV: 10 RIGHT Outflow Artery PSV: 97 RIGHT Outflow Artery EDV: 18 Report Signatures Finalized by Lencho Nieto MD on 06/17/2025 02:54 PM Authorizing ProviderResult TypeResult StatusJoy Cornelio Millan MDCV VASCULAR ORDERABLESFinal ResultPerforming OrganizationAddressCity/State/ZIP CodePhone Number FUJI SYNAPSE CV documented in this encounter Visit Diagnoses Diagnosis PVD (peripheral vascular disease) Unspecified peripheral vascular disease documented in this encounter Additional Health Concerns AssessmentNoted TimePHQ-2 Depression Total Score: 8:30 PM EDT documented as of this encounter Care Teams Team MemberRelationshipSpecialtyStart DateEnd Date Nikko Bird MD [address] [place] [id number] PCP - GeneralFamily Medicine09/04/18 System, Provider Not In Cardiologist11/09/22documented as of this encounter
--- OUTSIDE RECORDS SUMMARY | 2025-06-18 13:01 | XMS_ITS | Clinical Summary ---
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 Name Role Phone Nikko Bird MD Primary Care Provider [phone] System, Provider Not In Unavailable Unavaila ble Allergies Active AllergyReactionsCriticalityNoted ZbblGlmdsoomEsqqtbcoecr17/28/2019 Elevated blood pressure, GI intolerance/ nausea/vomiting GabapentinGI Wotjoecodcs63/18/2025 Medications MedicationSigDispense QuantityRefillsLast FilledStart DateEnd DateStatus metoprolol [...] 30 tablet 03/21/2025tive naloxone (NARCAN) 4 mg/actuation Amalga Administer 1 spray into one nostril for [...] of right legHematoma of arm, left, initial ypcfinxri06/10/2023 Assessment & Plan (11/04/2022 7:47 AM EST): [...] pneumonia of left lower lobe of lung3Pulmonary ryieyr012PAD (peripheral artery disease)01/21/2022 Assessment & Plan (03/14/2025 [...] 2022 was known to be reduced (0.5) Arwgboaylw01/24/2022Gangrene of left foot10/04/2018Acute pain of right lower caxobjtev05/10/2019 Assessment & Plan (09/07/2018 2:48 PM EST): -Presented to [facility] 09/04/2018 as a transfer from [place] for second opinion regarding left lower extremity [...] in pain -Reports pain is uncontrolled with MEDICAL RECEPTIONIST BILLER Dilaudid pump, and pain does not decrease [...] artery disease involving coronary bypass graft of [place] heart without angina ocuvkgav10/09/2019 Assessment & Plan (03/14/2025 3:30 PM EDT): S/p 3v CABG in 2017 Asymptomatic Assessment & Plan (09/05/2018 8:45 AM EST): Patient with remote coronary artery bypass grafting to 3 vessels. Patient denies chest pain at thistime. Jqclcbnbldeophfvzv14/09/2019 Assessment & Plan (09/05/2018 8:46 AM EST): Patient with history of hypercholesteremia. Plan: ?? Continue high intensity statin medication ?? Risk factor modification. Essential uyiktotksvhu46/09/2019 Assessment & Plan (09/05/2018 8:47 AM EST): [...] a goal BMI <30. Critical lower limb /08/2019 Assessment & Plan (03/15/2025 9:12 AM EDT): Presents from Dr. 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 Pt s/p LLE critical limb ischemia [place] class 4 rest pain with distal discoloration to his toes. Pt is s/p L pop angioplasty with stent placement 08/09 at [facility] in [place], [place]. Ptwas placed on Xarelto and ASA. [...] medication. ?? Will sign off Encounters DateTypeDepartmentCare FoccKljzgfnuhyx82/21/2025 1:06 PM EDT - 06/17/2025 11:59 PM EDTHospital Encounter [facility] 3rd [place] [address] Gracy Millan MD Arrived Discharge Disposition: Home06/06/2025Orders Only [facility] [phone] Ludivina Garcia RN PVD (peripheral vascular disease) (Primary Dx)06/05/2025 12:51 PM EDT - 06/05/2025 11:59 PM EDTHospital Encounter [facility] [place] [address] Gracy Millan MD Discharge Disposition: Home06/02/2025Orders Only [facility] [address] [place] [phone] Ludivina Garcia RN PVD (peripheral vascular disease) (Primary Dx)04/23/2025 3:15 PM EDTFollow-Up [facility] [address] [place] [phone] Gracy Millan MD Critical lower limb ischemia (HCC) (Primary Dx)04/23/2025 12:25 PM EDT - 04/23/2025 11:59 PM EDTHospital Encounter [facility] [address] [place] [phone] Gracy Millan MD Discharge Disposition: Home04/23/2025 12:25 PM EDT - 04/23/2025 11:59 PM EDT Hospital Encounter [facility] [address] [place] [address] Gracy Millan MD Discharge Disposition: Home04/23/20258769Zgootq53/06/2025 12:00 PM EDTFollow-Up [facility] [address] [place] [phone] Gracy Millan MD Critical lower limb ischemia (HCC) (Primary Dx)04/02/20253125Hzjaxv73/22/2025 Documentation [facility] [address] [place] [phone] Brenna Galloway RN 03/14/2025 11:04 AM EDT - 03/21/2025 6:29 PM EDTHospital Encounter [facility] V[facility] Thoracic [facility] [address] [place] [address] Elaine Macdonald MD [facility], [facility] CenterGilbert DO Dooling, Patrick Cassidy, MD Discharge Disposition: Homefrom Last 3 Months Immunizations ImmunizationAdministration DatesNext DueINFLUENZA IIV3 65+YO FLUAD06/18/2019 Influenza, Injectable, Gzlztgwkphdk43/25/2017Influenza, high dose seasonal 06/06/2018,05/18/2015Pneumococcal Conjugate 13-Valent (Prevnar 13)05/18/2015 Family History Medical HistoryRelationCommentsProstate cancerBrotherHeart diseaseFatherNo Known ProblemsMotherCancerPaternal AuntRelationStatusCommentsBrotherFatherMother Paternal Aunt Social History Tobacco UseTypesPacks/DayYears UsedDateSmoking Tobacco: NeverSmokeless Tobacco: NeverAlcohol UseStandard Drinks/WeekCommentsNot Currently0 (1 standard drink = 0.6 oz pure alcohol)[facility] UtilitiesAnswerDate RecordedIn the past 12 months has the electric, gas, oil, or water [facility] threatened to shut off services in your [...] Recorded Sex Assigned at BirthNot on fileLegal OqwDlrm8512/21/2013 2:37 PM EDTGender QoufwqsdJyoq03/08/2019 8:23 PM ESTSexual XnfdiqytmzuFiphgixs72/08/2019 8:23 PM EST Last Filed Vital Signs Vital SignReadingTime TakenCommentsBlood Ypsilzbb852/7208 2:36 PM EDT Kxvpa6292/ 2:36 PM KQAFjhyssxvxmg73.7 ??C (98.1 ??F)03/21/2025 2:58 PM EDTRespiratory Eoci302504/23/2025 2:30 PM EDTOxygen Cnsbmyhnqi40%04/23/2025 2:30 PM EDTInhaled Oxygen Concentration--Asfare241.1 kg (245 lb)04/23/2025 2:30 PM IZQPremba547 cm (6' 2 )04/23/2025 2:30 PM EDTBody Mass Index31.46004/23/2025 2:30 PM EDT Plan of Treatment Health MaintenanceDue DateLast DoneCommentsTetanus/Diphtheria/Pertussis (1 - Tdap)1958Zoster Vaccines (1 of 2)1989Falls Risk Oiwoyvofhl77/09/2004 RSV Vaccines (1 - 1-dose 75+ series)2014Pneumococcal Vaccine: 50+ Years (2 of 2 - PPSV23, PCV20, or PCV21)Medicare Wellness Visit /3COVID-19 Vaccine ( season), 10/28/2020, 1Depression Screening/Follow-Up (PHQ-2/9)03/15/2026 03/15/2025Influenza PaylvbjYgumxumkq88/14/2025, 06/18/2019, 06/06/2018, Additional history existsHIB VaccinesAged OutNo [...] LotHemostat 2 X 4in Surgicel Fibrillar - [id number] Implanted:Qty: 1 on 09/07/[facility] LqoJLRBTHA51/30/[id number] / / [id number] 2 X 4in Surgicel Fibrillar - Sna Implanted:Qty: 1 on 03/17/2025 by [facility] HospitalETHICON05/27/[id number] / NA / 105KURSealant 10ml Hemostatic Matrix Fast Prep Floseal W/Recothrom - [id number] Implanted:Qty: 1 on 03/17/2025 by [facility]Right: ArterialBAXTER [id number]/12/2026 [id number] / / [id number] Procedures Procedure NamePriorityDate/TimeAssociated DiagnosisCommentsUS DUPLEX BYPASS GRAFT LE LIMITED SBPRHDqqizja91/21/2025 2:15 PM EDT PVD (peripheral vascular disease) US ANKLE/BRACHIAL INDICES EXTREMITY BTJGUFJZtoiilu31/09/2025 1:29 PM EDT PVD (peripheral vascular disease) US ANKLE/BRACHIAL INDICES EXTREMITY EMQEAZJHigyxgm34/27/2025 2:18 PM EDT PVD (peripheral vascular disease) Critical lower limb ischemia (HCC) US DUPLEX LE BYPASS GRAFT COMPL BSSVHRubbcky33/27/2025 2:18 PM EDT PVD (peripheral vascular disease) Critical lower limb ischemia (HCC) OETLdcynwn95/25/2025 6:06 AM EDT MAGNESIUM VZOUMMpzgjcv75/25/2025 6:06 AM EDT BASIC METABOLIC QIVPTHaxglao73/25/2025 6:06 AM EDT US ANKLE/BRACHIAL INDICES EXTREMITY OOJINKZRjzrdrw72/24/2025 9:00 AM EDT GAUPmsrjnd12/24/2025 4:38 AM EDT MAGNESIUM DQJUCKmhqkbm62/24/2025 4:38 AM EDT BASIC METABOLIC AVXASSfkkcur02/24/2025 4:38 AM EDT BHIMkrqmmm21/23/2025 4:55 AM EDT MAGNESIUM AMNFMFbiqeft63/23/2025 4:55 AM EDT BASIC METABOLIC LTZGYDdektqe83/23/2025 4:55 AM EDT WSZIurhovp83/22/2025 4:01 AM EDT MAGNESIUM WCFZNCnpusmr25/22/2025 4:01 AM EDT BASIC METABOLIC WRZZIArjmntl41/22/2025 4:01 AM EDT from Last 3 Months Results * Duplex Bypass Graft Right LE (06/17/2025 2:15 PM EDT)Specimen (Source) Anatomical Location / LateralityCollection Method / VolumeCollection Time Received Time06/17/2025 1:26 PM EDT [facility]ative [facility] - 06/17/2025 2:54 PM EDT Patient Info Name: ? Tristin Gray Age: ? 85 years : ? 1940 Gender: ? Male Accession #: ? [id number] Exam Date: ? 06/17/2025 1:26 PM Patient Status: ? OUTPATIENT Site Location: ? Indications ?I73.9 - Peripheral vascular disease, ??unspecified Procedure Description ??85568 Duplex scan of lower extremity arteries or arterial bypass grafts using B-mode, color and spectral Doppler; unilateral or limited study. Credentialer: ? Gail SUAREZ, RVS Staff Ordering Provider: [...] - Peripheral vascular disease, unspecified Procedure Description 20134 Duplex scan of lower extremity arteries or arterial bypassgrafts using B-mode, color and spectral Doppler; unilateral or limited study. Credentialer: Gail SUAREZ, RVS Staff Ordering Provider: Gracy [...] MDCMiriam VASCULAR ORDERABLESFinal ResultPerforming OrganizationAddressCity/State/ZIP CodePhone Number [facility] * Ultrasound ankle / brachial indices extremity complete (06/05/2025 1:29 PM EDT) Only the most recent of3 resultswithin the time period is included. Specimen (Source)Anatomical Location / LateralityCollection Method / Volume Collection TimeReceived Time06/05/2025 1:16 PM EDT Narrative MARK AccessData CV - 06/05/2025 2:48 PM EDT Patient Info Name: ? Tristin Gray Age: ? 85 years : ? 1940 Gender: ? Male Accession #: ? [id number] Exam Date: ? 06/05/2025 1:16 PM Patient Status: ? OUTPATIENT Site Location: ? Indications ?I73.9 - PVD (peripheral vascular disease) Procedure Description ??46531 Limited bilateral noninvasive physiologic studies of upper or lower extremity arteries with bidirectional Doppler/PVR waveform analysis at 1-2 levels. Credentialer: ? Ginette Gonzalez RDMS, RVS Staff Ordering [...] to amputation. ??* Previous YAMILE done at [facility]- Right: 0.96 Left: 0.57. Recommendations ??* This [...] Segmental BP RIGHT Brachial A mmH RIGHT MARKETING INFORMATION ANALYST mmH RIGHT MARKETING INFORMATION ANALYST Index: 0.90 RIGHT DPA mm[facility] RIGHT DPA Index: 0.80 RIGHT YAMILE Index: 0.90 LEFT Brachial A mmH LEFT MARKETING INFORMATION ANALYST Index: 0.65 LEFT MARKETING INFORMATION ANALYST mmH LEFT DPA Index: 0.80 LEFT DPA mmH LEFT YAMILE Index: 0.80 Doppler RIGHT MARKETING INFORMATION ANALYST Waveform: Multiphasic RIGHT DPA Waveform: Multiphasic LEFT MARKETING INFORMATION ANALYST Waveform: Multiphasic LEFT DPA Waveform: Multiphasic , [...] 1:16 PM Patient Status: OUTPATIENT Site Location: [facility] I73.9 - PVD (peripheral vascular disease) Procedure Description 38481 Limited bilateral noninvasive physiologic studies of upper orlower extremity arteries with bidirectional Doppler/PVR waveform analysis at1-2 levels. Credentialer: Ginette Gonzalez RDMS, RVS Staff Ordering Provider: [...] to amputation. * Previous YAMILE done at [facility]- Right: 0.96 Left: 0.57. Recommendations * This [...] Segmental BP RIGHT Brachial A mmH RIGHT MARKETING INFORMATION ANALYST mmH RIGHT MARKETING INFORMATION ANALYST Index: 0.90 RIGHT DPA mmH RIGHT DPA Index: 0.80 RIGHT YAMILE Index: 0.90 LEFT Brachial A mmH LEFT MARKETING INFORMATION ANALYST Index: 0.65 LEFT MARKETING INFORMATION ANALYST mmH LEFT DPA Index: 0.80 LEFT DPA mmH LEFT YAMILE Index: 0.80 Doppler RIGHT MARKETING INFORMATION ANALYST Waveform: Multiphasic RIGHT DPA Waveform: Multiphasic LEFT MARKETING INFORMATION ANALYST Waveform: Multiphasic LEFT DPA Waveform: Multiphasic , [...] 1940 Gender: ? Male Accession #: ? [id number] Exam Date: ? 04/23/2025 12:53 PM Patient Status: ? OP SERIES Site Location: ? [facility] Indications ?I73.9 - Peripheral vascular disease, ??unspecified ?I70.229 - Atherosclerosis of [place] arteries of extremities with rest pain, ??unspecified extremity Procedure Description ??04169 Duplex scan of lower extremity arteries or arterial bypass grafts using B-mode, color and spectral Doppler; unilateral or limited study. Credentialer: ? Jigna Vera [facility], T Staff Ordering Physician: ? Gracy Millan MD, [facility] Conclusions ??* Right. ??* Less than [...] Artery Segment: Gabriela LEFT Inflow Artery Segment: SERVICE DISMANTLER LEFT Inflow Artery PSV: 126 LEFT Inflow [...] PM Patient Status: OP SERIES Site Location: [facility] Indications I73.9 - Peripheral vascular disease, unspecified I70.229 - Atherosclerosis of [place] arteries of extremities withrest pain, unspecified extremity Procedure Description 98140 Duplex scan of lower extremity arteries or arterial bypassgrafts using B-mode, color and spectral Doppler; unilateral or limited study. Credentialer: Jigna Vera RDMS, RVT Staff Ordering Physician: [...] Artery Segment: Gabriela LEFT Inflow Artery Segment: SERVICE DISMANTLER LEFT Inflow Artery PSV: 126 LEFT Inflow [...] PM Authorizing ProviderResult TypeResult StatusJoy Cornelio Millan [facility] [place] VASCULAR ORDERABLESFinal ResultPerforming OrganizationAddressCity/State/ZIP CodePhone Number FUJI SYNAPSE CV * (ABNORMAL) CBC (03/21/2025 6:06 AM EDT) Only the most recent of4 resultswithin the time period is included. ComponentValueRef RangeTest MethodAnalysis TimePerformed AtPathologist Signature WBC4.33(L)4.50 - 11.00 K/mcL03/21/2025 6:41 AM [facility] LABRBC3.16(L)4.50 - 5.90 M/[facility]03/21/2025 6:41 AM [facility] LVQIlyxcjhhlw23.5(L)13.5 - 17.5 g/dL03/21/2025 6:41 AM [facility] IHVJgewlwcljn52.0(L)41.0 - 53.0 %03/21/2025 6:41 AM [facility] LQXPPM31.980.0 - 100.0 fL03/21/2025 6:41 AM [facility] XWFKWV71.226.0 - 34.0 pg03/21/2025 6:41 AM [facility] PPOMZIV88.031.0 - 37.0 g/dL03/21/2025 6:41 AM [facility] FRBLunpyevbt554031 - 400 K/mcL03/21/2025 6:41 AM [facility] LABRDW - CV13.711.6 - 14.8 %03/21/2025 6:41 AM [facility] LABMPV9.79.4 - 12.4 fL03/21/2025 6:41 AM [facility] LABNucleated RBC0.0%03/21/2025 6:41 AM [facility] LABNucleated RBC Abs0.000.00 - 0.00 K/mcL03/21/2025 6:41 AM EDT [facility] LABSpecimen (Source)Anatomical Location / LateralityCollection Method / VolumeCollection TimeReceived TimeBloodBLOOD SPECIMEN / UnknownVenipuncture / Tdcznrg0103/21/2025 6:06 AM EDT03/21/2025 6:20 AM EDT Narrative Authorizing ProviderResult TypeResult StatusPatrick Magy GARCIA BLOOD ORDERABLESFinal ResultPerforming OrganizationAddressCity/State/ZIP CodePhone Number [facility] [address] [place] [address] * Magnesium (03/21/2025 6:06 AM EDT) Only the most recent of4 resultswithin the time period is included. ComponentValueRef RangeTest MethodAnalysis TimePerformed AtPathologist Signature Magnesium2.11.6 - 2.4 mg/dL03/21/2025 6:54 AM [facility] LABSpecimen (Source)Anatomical Location / LateralityCollection Method / Volume Collection TimeReceived TimeBloodBLOOD SPECIMEN / UnknownVenipuncture / Unknown 03/21/2025 6:06 AM EDT03/21/2025 6:20 AM EDT Narrative Authorizing ProviderResult TypeResult StatusPatrick Magy GARCIA BLOOD ORDERABLESFinal ResultPerforming OrganizationAddressCity/State/ZIP CodePhone Number [facility] [address] [place] [address] * (ABNORMAL) Basic Metabolic Panel (03/21/2025 6:06 AM EDT) Only the most recent of4 resultswithin the time period is included. ComponentValueRef RangeTest MethodAnalysis TimePerformed AtPathologist Signature Ybbbwp238502 - 145 mmol/L03/21/2025 6:54 AM [facility] Potassium4.03.5 - 5.1 mmol/L03/21/2025 6:54 AM [facility] LABComment:Slightly TpjhqapgjLtyxyuyp31928 - 108 mmol/L03/21/2025 6:54 AM EDT [facility] GHSHpbjokxnpnw8368 - 32 mmol/L03/21/2025 6:54 AM [facility] LABAnion Kip6218 - 20 mmol/L03/21/2025 6:54 AM [facility] XMMJyygaja895(H)65 - 99 mg/dL03/21/2025 6:54 AM [facility] YYNQTN189 - 25 mg/dL03/21/2025 6:54 AM EDT [facility] LABCreatinine0.980.80 - 1.30 mg/dL03/21/2025 6:54 AM [facility] LAKhQQC04>=60 mL/min/1.73 m203/21/2025 6:54 AM [facility] LABComment:Estimated GFR was calculated using the 2020 CKD-EPI creatinine equation.BUN/Creatinine Ratio19.410.0 - 20.0 03/21/2025 6:54 AM [facility] LABCalcium9.48.4 - 10.2 mg/dL 03/21/2025 6:54 AM [facility] LABSpecimen (Source) Anatomical Location / LateralityCollection Method / VolumeCollection Time Received TimeBloodBLOOD SPECIMEN / UnknownVenipuncture / Xnzupls2503/21/2025 6:06 AM EDT03/21/2025 6:20 AM EDT Narrative [facility] - 03/21/2025 6:54 AM EDT [facility] Laboratory Services has implemented the eGFR calculation approach that does not have a coefficient for race that conforms to the NKF-ASN Task Force Recommendations. Authorizing ProviderResult TypeResult StatusPatrick Magy GARCIA BLOOD ORDERABLESFinal ResultPerforming OrganizationAddressCity/State/ZIP CodePhone Number [facility] [address] [place] [address] from Last 3 Months Insurance Advance Directives For more information, please contact: [phone] TypeDate RecordedPatient RepresentativeExplanationPower of Attorney10/13/2018 9:03 PMRECEIVED [...] Team MemberRelationshipSpecialtyStart DateEnd Date Nikko Bird MD [address] [place] [id number] PCP - GeneralFamily Medicine09/04/18 System, Provider Not In Cardiologist11/09/22
--- OUTSIDE RECORDS SUMMARY | 2025-06-18 13:01 | XMS_ITS | Encounter Summary ---
Author Organization [facility] Address [address] [place] [address] Care Team Providers Care Multi Operation Forming Machine Setter Name Role Phone Nikko Bird MD Primary Care Provider [phone] System, Provider Not In Unavailable Unavaila ble Reason for Referral * Cardio (Routine) - Pending ReviewSpecialtyDiagnoses / ProceduresReferred By ContactReferred To ContactCardiology Diagnoses PVD (peripheral vascular disease) Procedures US Duplex Bypass Graft Right LE Gracy Millan MD [address] [place] [address] Phone: tel: fax: Referral IDStatusReasonStart DateExpiration DateVisits RequestedVisits [id number] Kyobqq45/ Encounter Details DateTypeDepartmentCare Team (Latest Contact Info)Hskdiuwzvjb66/10/2025Orders Only [facility] [address] [place] [address] Ludivina Garcia RN PVD (peripheral vascular disease) (Primary Dx) Social History Tobacco UseTypesPacks/DayYears UsedDateSmoking Tobacco: NeverSmokeless Tobacco: NeverAlcohol UseStandard Drinks/WeekCommentsNot Currently0 (1 standard drink = 0.6 oz pure alcohol)[facility] UtilitiesAnswerDate RecordedIn the past 12 months [...] homeless or living in a long-term (including now)?03/14/2025Sex and Gender InformationValueDate Recorded Sex Assigned at BirthNot on fileLegal VqqCpls1112/21/2013 2:37 PM EDTGender BalbheosLwjs34/08/2019 8:23 PM ESTSexual RmrwbgjvfbaVklvjvvl92/08/2019 8:23 PM ESTdocumented as of this encounter [...] 1940 Gender: ? Male Accession #: ? [id number] Exam Date: ? 06/17/2025 1:26 PM Patient Status: ? OUTPATIENT Site Location: ? Indications ?I73.9 - Peripheral vascular disease, ??unspecified Procedure Description ??08083 Duplex scan of lower extremity arteries or arterial bypass grafts using B-mode, color and spectral Doppler; unilateral or limited study. Electric Meter Tester: ? Gail Foy BS, RVS Staff Ordering Provider: ? Gracy Millan MD, [facility] Conclusions ??* Difficult exam due to [...] - Peripheral vascular disease, unspecified Procedure Description 12302 Duplex scan of lower extremity arteries or arterial bypassgrafts using B-mode, color and spectral Doppler; unilateral or limited study. Electric Meter Tester: Gail Foy BS, RVS Staff Ordering Provider: [...] PM Authorizing ProviderResult TypeResult StatusJoy Cornelio Millan [facility] [place] VASCULAR ORDERABLESFinal ResultPerforming OrganizationAddressCity/State/ZIP CodePhone Number FUJI SYNAPSE CV documented in this encounter Visit Diagnoses Diagnosis PVD (peripheral vascular disease)- Primary Unspecified peripheral vascular disease PVD (peripheral vascular disease) Unspecified peripheral vascular disease documented in this encounter Additional Health Concerns AssessmentNoted TimePHQ-2 Depression Total Score: 8:30 PM EDT documented as of this encounter Care Teams Team MemberRelationshipSpecialtyStart DateEnd Date Nikko Bird MD [address] [place] [address] PCP - GeneralFamily Medicine09/04/18 System, Provider Not In Cardiologist11/09/22documented as of this encounter
--- OUTSIDE RECORDS SUMMARY | 2025-06-18 13:01 | XMS_ITS | Clinical Summary ---
Author Organization [facility] Address [address] [place] [address] Care Team Providers Care Rn Rehab Name Role Phone Nikko Bird MD Primary Care Provider [phone] Allergies Active AllergyReactionsCriticalityNoted XqdiXbnjfidkTrjpfvlzbhv14/28/2019 Elevated blood pressure, GI intolerance/ nausea/vomiting CecrtmxkyCceupbnwoakSkgw02/30/2017 Medications MedicationSigDispense QuantityRefillsLast FilledStart DateEnd DateStatus albuterol [...] mg SL tablet Indications:Coronary artery disease involving inaja coronary artery of inaja heart without angina pectorisPlace 1 tablet (0.4 [...] tablet 5Active Active Problems ProblemNoted DateDiagnosed DateBronchiectasis, gtanwbztgudav78/10/2025Acquired absence of left leg below knee07/22/2024Other complications of amputation stump 07/22/2024oronary artery tnpoyiw1606/11/2024NSTEMI (non-ST elevated myocardial infarction)05/28/2024Hx of CABG05/28/2024Secondary hypercoagulable state 4Pulmonary hypertension, twquxrougmv40/30/2024Acute cystitis without gilgkxrej73/25/2024 Overview (04/22/2024): Last Assessment & Plan: Add Probiotic to help replenish the good bacteria that are destroyed by the Antibiotics Florastor Florajen Align or try Activia in Yogurt Probiotics reduce the risk of antibiotic induced diarrhea Other hglfebtcqbbot36/25/2024 Overview (04/22/2024): Last Assessment & Plan: Has blood thinner Flu vaccine need4Routine general medical examination at health care rcucjubw95 Overview (10/09/2023): Last Assessment & Plan: Colonoscopy [...] US Acute exacerbation of chronic obstructive pulmonary zwpriil96 Abnormal radiographic yvdbdbwharm87cute on chronic heart failure with preserved ejection bwlpzxec55rthritis04/09/2023 10/09/2023sthmatic ijufjsgstx34arotid artery stenosis Overview (10/09/2023): Last Assessment & Plan: Getting Carotid dopplers Uaxodhik91hronic kidney disease due to umnxydhxzjcm78/13/2023 10/09/20236193Eimtgmwxpwaa57Elevated erythrocyte sedimentation rateLeft sciatic nerve painNeuropathy Other chronic painaresthesia of skin aroxysmal atrial aijmgmwlbfin01hantom limb painolymyalgia fxkkbyoesm90rimary osteoarthritis of right hip/07/2024Seasonal allergic rhinitis Sinusitis [...] any sugar elevations. Stage 3a chronic kidney iuqxmge78hronic diastolic (congestive) heart zbpjcar9904/09/20230889Jhqjnysi76/25/202308/03/2023Lumbosacral spondylosis without lxjwjtdckq70Mitral valve regurgitation 11/21/2022Inguinal pain11/21/20226661Glzizhj01/27/2023osterior tibial tendinitis of right leg11/07/2022Hematoma of arm, left, initial kevqhyoga12/10/2023 Overview (11/21/2022): Last Assessment & Plan: 82 [...] pneumonia of left lower lobe of lung11/03/2022ulmonary jeneel6301/21/20229875Qeasydmbol10/24/2022Thoracic aortic aneurysm without rupture 01/12/2022oronary artery disease involving inaja coronary artery of inaja heart without angina zbbabziv32/18/2021/P total hip wohppuxrqkea10/18/2021S/P transmetatarsal amputation of foot, left1Aortic valve regurgitation 1Peripheral arterial occlusive ocnntyb5101/09/2019Gangrene of left foot 10/04/2018Coronary artery disease involving coronary bypass graft of inaja heart without angina fwrlissu44/09/2019 Overview (11/21/2022): Last Assessment & Plan: Patient with remote coronary artery bypass grafting to 3 vessels. Patient denies chest pain at thistime. Gdztfahljvshkmhrsu78/09/2019 Overview (11/21/2022): Last Assessment & Plan: Patient [...] a goal BMI <30. Critical lower limb qsjqoeiw80/08/2019 Overview (11/21/2022): Last Assessment & Plan: Pt s/p LLE angiogram with Dr Hahn who feels that the pt has no further endovascular options. He has consulted Dr. Millan for a possible tibial bypass. Pt s/p LLE critical limb ischemia Baker class 4 rest pain with distal discoloration to his toes. Pt is s/p L pop angioplasty with stent placement 08/09 at [facility] in [place], [place]. Ptwas placed on Xarelto and ASA. [...] medication. ?? Will sign off Peripheral arterial jqimgzd9308/10/2018 Overview (11/21/2022): Last Assessment & Plan: S/P [...] was known to be reduced (0.5) Pure yqxbratuqjhfjbhbvpqz58/14/2018 Overview (11/21/2022): Last Assessment & Plan: Resume home medications Follow up after discharged with PCP Obesity (BMI 30.0-34.9)08/10/2018 Overview (11/21/2022): Last Assessment & Plan: Diet and lifestyle modifications strongly encouraged Follow up after discharged with PCP for further treatment options Intermittent vfxfiuonegqp09/12/2018 Overview (11/21/2022): Added automatically from request for surgery [id number] Last Assessment & Plan: Heparin drip initiated, pharmacy to manage per protocol ASA and Plavix started Cardiovascular surgeon consulted PT/OT evaluation and treatment Monitor labs, VS and telemetry as ordered Pain management Last Assessment & Plan: S/P Left Lower Extremity Angiogram with ballooning and stent 08/09/2018 Post op orders per surgeon DVT/GI prophylaxis Monitor labs, VS and telemetry as ordered Pain management Xjghrkmxv95/04/3832Bjxzrvlho82/18/2014bdominal pain07/11/2014Hypertensive xegqaogo69/22/2014 Overview (11/21/2022): Last Assessment & Plan: Resume home medications as ordered Follow up after discharged with PCP Labetalol PRN for SBP> 160 Monitor VS as ordered Last Assessment & Plan: Patient with history of hypertension. Blood pressure at this time 132/62. Plan: ?? Continue medications as prescribed. Disorder of lipid ipaqoegglo63/27/1520Qyirlhqjp87/14/2014Chest pain08/30/2013 Coronary uumsspflmeriide72/03/2014Mixed hcuqrkwtrksdkj61/03/2014Dyspnea 08/30/2013Preinfarction fxxchjot56/03/2014vascular necrosis of bone of hip 09/04/2011 Overview (11/21/2022): Right hip Herpes egrzmf2309/04/2011Pain of left lower gkyrteias89/08/2012 Overview (11/21/2022): Last Assessment & Plan: -[facility] as a transfer from [place] for second opinion regarding left lower extremity [...] in pain -Reports pain is uncontrolled with [employer] DIRECT[employer] Dilaudid pump, and pain does not [...] Fernandez RN -Please call with questions Prostate xjpfgf2909/04/2011Chronic ischemic heart Impotence of organic ijrnrz924Benign essential hypertension 07/04/2008 Overview (04/22/2024): Last Assessment [...] Free06/21/2021,06/02/2020,06/06/2018,05/18/2015Influenza, High-dose Seasonal, Quadrivalent, Preservative Free05/31/2022Influenza, injectable, phgbiwlcgzhj39/25/2017Influenza, trivalent, /22/2019Moderna SARS-CoV-2 Hgcfifchpnb63/13/2022,10/28/2020,1Pneumococcal Conjugate PCV 131,05/18/2015Pneumococcal Polysaccharide YHF823210/08/2020Tdap09/30/2019 Family History Medical HistoryRelationNameCommentsCoronary artery diseaseOtherHyperlipidemia OtherHypertensionOtherRelationNameStatusCommentsOther Social History Tobacco UseTypesPacks/DayYears UsedDateSmoking Tobacco: NeverSmokeless Tobacco: Never Tobacco Cessation:Counseling Given: Not Answered Alcohol UseStandard Drinks/WeekCommentsNot Currently0 (1 standard drink = 0.6 oz pure alcohol)AL Safety & EnvironmentAnswerDate RecordedFear of Current or Ex-PartnerNot on file10/19/2023Emotionally AbusedNot on file10/19/2023hysically AbusedNot on file10/19/2023Sexually AbusedNot on file10/19/2023hysically or Sexually AbusedNot on file10/19/2023Sex and Gender InformationValueDate Recorded Sex Assigned at BirthNot on fileLegal MscJwok5402/23/2022 9:56 PM EDTGender IdentityNot on fileSexual OrientationNot on file Last Filed Vital Signs Vital SignReadingTime TakenCommentsBlood Aepnjksx449/7604 1:22 PM EDT Owhmz8072 1:22 PM EDTTemperature--Respiratory Nism851009/09/2023 12:15 PM ESTOxygen Kfodjsuslw92%12/18/2024 1:22 PM EDTInhaled Oxygen Concentration-- Konfmi650 kg (248 lb)12/18/2024 1:22 PM DWMXsyrub576 cm (6' 2 )12/18/2024 1:22 PM EDTBody Mass Index31.8404 1:22 PM EDT Plan of Treatment Health MaintenanceDue DateLast DoneCommentsMedicare Annual Wellness (AWV) 1939Depression Awfelkrlj95/09/1951Zoster Vaccines (1 of 2)1989Fall Risk Eeyhoudkw71/09/2004COVID-19 Vaccine ( season)2025 09/09/2021, 09/09/2021, 10/28/2020, Additional history existsInfluenza Vaccine (#1)512/, 06/06/2023, 05/31/2022, Additional history existsAdult Fvcdhjm42Pneumococcal Vaccine: 50+ KsyveUouzxbiwr79/11/2021, 05/28/2020, 05/18/2015HIB VaccinesAged OutNo longer eligible based [...] Team MemberRelationshipSpecialtyStart DateEnd Date Nikko Bird MD [address] [place] [address] PCP - General11/21/22
--- OUTSIDE RECORDS SUMMARY | 2025-06-18 13:01 | XMS_ITS | Clinical Summary ---
Author Organization [facility] Address [address] [place] [address] Phone Care Team Providers Care Sinter Feeder Name Role Phone Unavailable Primary Care Provider [...]
--- OUTSIDE RECORDS SUMMARY | 2025-06-18 13:01 | XMS_ITS | Clinical Summary ---
Author Organization [facility] Address [id number] [address] [place] [address] Care Team Providers Care Oyster Sorter Name Role Phone Nikko Bird MD Primary Care Provider [phone] Allergies Active AllergyReactionsCriticalityNoted DateCommentsOxycodoneAnaphylaxisHigh 11/24/2016 Medications MedicationSigDispense [...] Tobacco UseTypesPacks/DayYears UsedDateSmoking Tobacco: Never AssessedChildcare AnswerDate CfgriqhuUdqidhzipIcljcew32/12/2019EmploymentAnswerDate Recorded UtjkcscxowOrcbapt33/12/2019Purpose - LifeAnswerDate RecordedPurpose and direction in evsjRdevqdu46/11/2021Sex and Gender InformationValueDate Recorded Sex Assigned at BirthNot on fileLegal EbcMppj5604/02/2015 11:35 AM EDTGender IdentityNot on fileSexual OrientationNot on file Last Filed Vital Signs Vital SignReadingTime TakenCommentsBlood Zgugrvkm421/68011/24/2016 10:29 AM EDT Jtsiu0637 10:29 AM MPYBspjzixeplp83.7 ??C (98 ??F)11/24/2016 10:29 AM EDTRespiratory Kyrh224111/24/2016 10:29 AM EDTOxygen Saturation--Inhaled Oxygen Concentration--Ppliis005.6 kg (235 lb)11/24/2016 10:29 AM EDTHeight--Body Mass Index-- Plan of Treatment Health MaintenanceDue DateLast DoneCommentsDepression Djoxpecot52/09/1951Tobacco Awtzmdflg43/09/1951TaP,Tdap and Td Vaccines (1 - Tdap)1958Zoster (Shingles) Vaccine (1 of 2)1989Fall Risk Etoqhvluo89/09/2004Influenza Xdwjqya5904/28/2025 Medical Devices Not on file Insurance Care Teams Team MemberRelationshipSpecialtyStart DateEnd Date [place] [address] [place] [address] [facility]11/16/16
--- OUTSIDE RECORDS SUMMARY | 2025-06-18 13:01 | XMS_ITS | Clinical Summary ---
Author Organization [facility] Address [address] [place] [address] [place] [address] Care Team Providers Care Adventure Education Teacher Name Role Phone Nikko Bird MD Primary Care Provider [phone] Allergies Active AllergyReactionsCriticalityNoted OaztJkwifwzjFufxirzkdx87/12/2025 Medications MedicationSigDispense QuantityRefillsLast FilledStart DateEnd DateStatus rivaroxaban [...] 509/Expired Active Problems ProblemNoted DateDiagnosed DateAnemia (Low HGB)05/09/20259377Iobnfyuxvd28/12/2025 Oysxtdmsuw49/12/2025oronary artery disease involving upper sioux coronary artery of upper sioux heart without angina yyvrtwoa30/18/2021/P transmetatarsal amputation of foot, left07/15/2021Mixed gwuwhrdszfoljn98/18/2021eripheral arterial disease 07/15/2021/P total hip kcwuiwrsufon32/18/2021Obesity: body mass index of 30.0-34.9110/11/2017 Assessment & Plan (08/30/2018 3:40 PM EST): Diet and lifestyle modifications strongly encouraged Follow up after discharged with PCP for further treatment options Claudication of left lower /14/2018 Assessment & Plan (08/10/2018 11:36 AM EST): S/P Left Lower Extremity Angiogram with ballooning and stent 08/09/2018 Post op orders per surgeon DVT/GI prophylaxis Monitor labs, VS and telemetry as ordered Pain management Essential neslatygvvxu89/14/2018 Assessment & Plan (08/30/2018 3:39 PM EST): Resume home medications as ordered Follow up after discharged with PCP Labetalol PRN for SBP> 160 Monitor VS as ordered Assessment & Plan (08/10/2018 11:36 AM EST): Resume home medications as ordered Follow up after discharged with PCP Labetalol PRN for SBP> 160 Monitor VS as ordered Pure sfvpnqezfjbvtbzvufil12/14/2018 Assessment & Plan (08/30/2018 3:39 PM EST): Resume home medications Follow up after discharged with PCP Assessment & Plan (08/10/2018 11:37 AM EST): Resume home medications Follow up after discharged with PCP Lipid panel ordered Vascular disease, jecuozhkiz58/14/2018 Assessment & Plan (08/10/2018 11:37 AM EST): S/P angiogram with Dr. Mayen Follow up after discharged as previously scheduled Pqfchwsldvge18/12/2018 Overview (08/08/2018): Added automatically from request for surgery [id number] Assessment & Plan (08/30/2018 3:38 PM EST): Heparin drip initiated, pharmacy to manage per protocol ASA and Plavix started Cardiovascular surgeon consulted PT/OT evaluation and treatment Monitor labs, VS and telemetry as ordered Pain management Herpes stsjgu0109/04/2011Pain of left lower hfrkoitbq09/08/2012vascular necrosis of bone of hip09/04/2011 Overview (09/04/2011): Right hip Prostate wauuqc0509/04/2011 Resolved Problems ProblemNoted DateDiagnosed DateResolved DateHip pain Encounters DateTypeDepartmentCare CjbsTdnuhobdycd16/12/2025 2:31 AM EDT - 05/13/2025 11:45 AM EDTHospital Encounter [id number] [address] [place] [address] Vivienne Gerard MD YeDanica MD Hemoptysis Discharge Disposition: [place] [facility] [place]from Last 3 Months Family History Medical HistoryRelationNameCommentsProstate [...] InformationValueDate RecordedSex Assigned at BirthNot on fileLegal VarKktf3409/30/2012 7:06 PM ESTGender JezehvtbUbrx22/19/2018 11:34 AM ESTSexual OrientationNot on file Last Filed Vital Signs Vital SignReadingTime TakenCommentsBlood Jtlvmywq366/68005/13/2025 7:29 AM EDT Tkdky7780/16/2025 7:29 AM LYIPhixmikfudk78.4 ??C (97.5 ??F)05/13/2025 7:29 AM EDTRespiratory Usyh356205/13/2025 7:29 AM EDTOxygen Gazmfeefey54%05/13/2025 7:29 AM EDTInhaled Oxygen Concentration--Teolby942.9 kg (240 lb)05/09/2025 2:00 AM DVUPlhseg598 cm (6' 2 )05/09/2025 2:00 AM EDTBody Mass Index30.8105/09/2025 2:00 AM EDT Plan of Treatment Health MaintenanceDue DateLast DoneCommentsCOLORECTAL CANCER SCREENING LVLNEVEGRV20/09/1984ZOSTER (SHINGLES) VACCINE (1 of 2)1989RSV VACCINE (1 - 1-dose 75+ series)2014COVID-19 VACCINE (2024- season)2025 09/09/2021, 10/28/2020, 09/30/2020INFLUENZA VACCINE (#1)512/, 06/06/2023, 05/31/2022, Additional history djghavWAKFIAQWH69/14//, 05/09/2025, 06/17/2021, Additional history byiygmEGRHOBI74/03//10/2019TDAP (ADULT)Wtwekcmpk09/03/2020PNEUMOCOCCAL VACCINE IJJJAALvaalmgig12/11/2021, 05/28/2020, 05/18/2015HEP B VACCINEAged OutNo longer eligible based on patient's age to complete this topic Medical Devices ImplantedTypeAreaManufacturerDevice IdentifierShelf Expiration DateModel / Serial / LotPinnacle Altrx Polyethylene Acetabular Liner Neutral 36mm Id 62mm Od Implanted:Qty: 1 on 07/15/2021 by Dashawn Silvestre MD at [facility] JointRight: Hip07/27/2025/ 1221-36-052 / [id number] Gription Acetabular Shell Sector 62mm Od Implanted:Qty: 1 on 07/15/2021 by Dashawn Silvestre MD at [facility] JointRight: Hip09/27/2029/ 1217-32-062 / [id number] Delta Ceramic Femoral Head +1.5 36mm Jaki 08/10 Taper Implanted:Qty: 1 on 07/15/2021 by Dashawn Silvestre MD at [facility] JointRight: Hip04/27/2026/ 1365-36-310 / [id number] Femoral Stem 08/10 Taper Size 7 Mi 133mm Implanted:Qty: 1 on 07/15/2021 by Dashawn Silvestre MD at [facility] JointRight: Hip10/25/2025/ 1570-13-135 / [id number] Stem Centralizer 12.0mm Cemented Implanted:Qty: 1 on 07/15/2021 by Dashawn Silvestre MD at [facility] JointRight: Hip09/27/2025/ 1376-21-000 / [id number] Flex [id number] - [id number] Implanted:Qty: 1 on 08/09/2018 by Isaias Mayen MD at [facility] LOCLeft: LegCORDIS/[id number]/10/[id number] / / [id number] Flex [id number] - [id number] Implanted:Qty: 1 on 08/09/2018 by Isaias Mayen MD at [facility] LOCLeft: LegCORDIS/[id number]/27/[id number] / / [id number] 6f Vip - [id number] Implanted:Qty: 1 on 08/09/2018 by Isaias Mayen MD at [facility] LOCRight: [id number] / / [id number] R 1 X 40 Us - [id number] Implanted:Qty: 1 on 07/15/2021 by Dashawn Silvestre MD at [facility] LOC Right: Hip/ / [id number] Lv 1x40 Single - [id number] Implanted:Qty: 2 on 07/15/2021 by Dashawn Silvestre MD at [facility] LOC Right: HipZIMMER [id number] / / [id number] Procedures Procedure NamePriorityDate/TimeAssociated DiagnosisCommentsCREATININERoutine 05/13/2025 4:38 AM EDT TYPE AND QQEHSEAlqtbtq17/15/2025 5:09 AM EDT CBC AND ELECTRONIC PUENXecxtlv79/15/2025 5:09 AM EDT CBC, EDIF, KFYISRGRCjazwfm16/15/2025 5:09 AM EDT HFHHQECVYZJhwytrh66/15/2025 5:09 AM EDT CBC AND ELECTRONIC WZBTZylkagi13/14/2025 3:53 AM EDT CBC, EDIF, AGUOFCTKXmyiuzs56/14/2025 3:53 AM EDT CHEM 6 (LYTES, BUN CREA)Yxijkzv4205/11/2025 3:53 AM EDT HEPATIC FUNCTION ZRYYZOhgkqsa14/14/2025 3:53 AM EDT VANCOMYCIN LEVEL, TROUGH (PRE DRUG LEVEL)Zitejom8205/10/2025 5:40 PM EDT HEMOGLOBIN & ROVLZTOLILDyojkzv97/13/2025 5:40 PM EDT LOWER RESPIRATORY CULTURE, COQXCESFNNgzcvdd14/13/2025 4:30 AM EDT C REACTIVE HPJXSFUSrfsmim42/13/2025 12:28 AM EDT SEDIMENTATION RATE, XKNJKRHNIExvkrol49/13/2025 12:28 AM EDT ZBMJUGKJROJifyehl97/13/2025 12:28 AM EDT US ABDOMEN RUQ/LIVER/CISltlwil92/12/2025 7:21 AM EDT HEPATITIS BATTERY, IDBZGPQOzrsbnl26/12/2025 6:39 AM EDT CBC AND ELECTRONIC WXOWRtboyzc73/12/2025 3:37 AM EDT HEPATIC FUNCTION KVWQAOqjqaag15/12/2025 3:37 AM EDT PT,INR,MLWUddedxx98/12/2025 3:37 AM EDT PHOSPHATE, QSPPYDLLIMqxzthf07/12/2025 3:37 AM EDT SYKEXKQZFSqhqbwi75/12/2025 3:37 AM EDT WOXUGUFOtdstrd01/12/2025 3:37 AM EDT CHEM 7 (LYTES,BUN,CREA,GLUC)Gjymhsm9505/09/2025 3:37 AM EDT CBC, EDIF, CRGTABDVJohcenw47/12/2025 3:37 AM EDT XR CHEST (OUTSIDE IMAGE)Uxfniwo4705/07/2025 CT CHEST (OUTSIDE IMAGE)Pxogbbw8605/06/2025 from Last 3 Months Results * CREATININE (05/13/2025 4:38 AM EDT) Only the most recent of3 resultswithin the time period is included. ComponentValueRef RangeTest MethodAnalysis TimePerformed AtPathologist Signature Creatinine0.770.70 - 1.30 mg/dL05/13/2025 5:22 AM [facility] LABORATORYeGFR, CKD-EPI, Male87>=60 mL/min/1.49f81505/13/2025 5:22 AM EDT [facility] LABORATORYComment:Reported eGFR is based on the CKD-EPI 2020 equation using creatinine, age, and sex.Specimen (Source) Anatomical Location / LateralityCollection Method / VolumeCollection Time Received TimeBloodVenipuncture / Trqdorf1805/13/2025 4:38 AM EDT05/13/2025 4:53 AM EDT Narrative Authorizing ProviderResult TypeResult StatusAndglen Pineda MD CHEMISTRY ORDERABLESFinal ResultPerforming OrganizationAddressCity/State/ZIP CodePhone Number [facility] [address] [address] * (ABNORMAL) CBC AND ELECTRONIC DIFF (05/12/2025 5:09 AM EDT) Only the most recent of3 resultswithin the time period is included. ComponentValueRef RangeTest MethodAnalysis TimePerformed AtPathologist Signature WBC Count5.523.73 - 10.10 K/uL05/12/2025 5:29 AM [facility] LABORATORYRBC Count3.23(L)4.38 - 5.83 M/uL05/12/2025 5:29 AM [facility] HMMGQEMZUKKwxhcfnsfq71.0(L)13.4 - 16.8 g/dL 05/12/2025 5:29 AM [facility] LABORATORYHematocrit 29.7(L)39.6 - 48.8 %05/12/2025 5:29 AM [facility] LABORATORYMean Cell Ogklni66.079.0 - 94.5 fL05/12/2025 5:29 AM [facility] LABORATORYMean Cell Hgb31.026.1 - 33.3 pg05/12/2025 5:29 AM [facility] LABORATORYMean Cell Hgb Conc33.731.9 - 36.5 g/dL05/12/2025 5:29 AM [facility] LABORATORYRBC Rnxrgjohygxv69.5(H)10.9 - 14.3 %05/12/2025 5:29 AM [facility] LABORATORYPlatelet Kdslr634589 - 337 K/uL05/12/2025 5:29 AM [facility] LABORATORYMean Platelet Volume9.48.7 - 12.3 fL 05/12/2025 5:29 AM [facility] LABORATORYDIFF STATUS Electronic Zfdmtvmhbwjp67/15/2025 5:29 AM [facility] LABORATORYSegs + Bands Auto77.5%05/12/2025 5:29 AM [facility] LABORATORYImmature Grans %1.8%05/12/2025 5:29 AM [facility] LABORATORYLymphocyte % Auto10.7%05/12/2025 5:29 AM [facility] LABORATORYMonocyte % Auto8.9%05/12/2025 5:29 AM [facility] LABORATORYEosinophil % Auto0.9%05/12/2025 5:29 AM [facility] LABORATORYBasophil % Auto0.2%05/12/2025 5:29 AM [facility] LABORATORYNucleated RBC0.0<=0.2 /100 WBC05/12/2025 5:29 AM [facility] LABORATORYSegs + Bands,Absolute Auto4.281.57 - 6.19 K/uL05/12/2025 5:29 AM [facility] LABORATORYImmature Grans Absolute0.10(H)<=0.07 K/uL 05/12/2025 5:29 AM [facility]ORYAbs Lymph Auto0.59(L)0.83 - 3.57 K/uL05/12/2025 5:29 AM [facility]ORYAbs Meagher Auto0.490.24 - 0.93 K/uL05/12/2025 5:29 AM [facility]ORYAbs Eos Auto0.050.00 - 0.48 K/uL 05/12/2025 5:29 AM [facility]ORYAbs Baso Auto <0.040.00 - 0.09 K/uL05/12/2025 5:29 AM [facility] LABORATORYSpecimen (Source)Anatomical Location / LateralityCollection Method / VolumeCollection TimeReceived TimeBloodVenipuncture / Quuaedr3505/12/2025 5:09 AM EDT05/12/2025 5:27 AM EDT Narrative Authorizing ProviderResult TypeResult StatusDanica Aguila MDHEMATOLOGY ORDERABLES Final ResultPerforming OrganizationAddressCity/State/ZIP CodePhone Number [facility] [address] [place] [phone] * TYPE AND SCREEN (05/12/2025 5:09 AM EDT)ComponentValueRef RangeTest Method Analysis TimePerformed AtPathologist SignatureABO/RH(D) TYPEO POS05/12/2025 6:20 AM [facility] BLOOD BANKSpecimen Ajwgpgmjwm96/18/2025 23:5909 6:20 AM [facility] BLOOD BANKANTIBODY BLDTHNSFJ50/15/2025 6:20 AM [facility] BLOOD BANKSpecimen (Source) Anatomical Location / LateralityCollection Method / VolumeCollection Time Received TimeBloodBLOOD SPECIMEN / UnknownVenipuncture / Mqzhoxh4605/12/2025 5:09 AM EDT05/12/2025 5:22 AM EDT Narrative Authorizing ProviderResult TypeResult StatusDanica Aguila MDBLOOD BANK ORDERABLES Final ResultPerforming OrganizationAddressCity/State/ZIP CodePhone Number [facility] BLOOD BANK [address] [address], [place] * CHEM 6 (LYTES, BUN CREA) (05/11/2025 3:53 AM EDT)ComponentValueRef RangeTest MethodAnalysis TimePerformed AtPathologist QkmoclgprNYQ644 - 25 mg/dL 05/11/2025 4:44 AM [facility] DXDBSNJNMHAhuzpk217 135 - 145 mmol/L05/11/2025 4:44 AM [facility] LABORATORYPotassium3.63.5 - 5.0 mmol/L05/11/2025 4:44 AM [facility] FYAWILCGVPQovyntns81845 - 108 mmol/L05/11/2025 4:44 AM [facility] EDLFHYIGBLFA25059 - 31 mmol/L05/11/2025 4:44 AM [facility] LABORATORYCreatinine0.890.70 - 1.30 mg/dL05/11/2025 4:44 AM [facility] Bun/Crea Nhcjl904505/11/2025 4:44 AM [facility] LABORATORYAnion Wdx893 - 17 mmol/L05/11/2025 4:44 AM [facility] LABORATORYeGFR, CKD-EPI, Male83>=60 mL/min/1.18g12905/11/2025 4:44 AM [facility] LABORATORYComment:Reported eGFR is based on the CKD-EPI 2020 equation using creatinine, age, and sex.Specimen (Source)Anatomical Location / LateralityCollection Method / VolumeCollection TimeReceived TimeBloodVenipuncture / Cpquqtw8505/11/2025 3:53 AM EDT05/11/2025 4:16 AM EDT Narrative Authorizing ProviderResult TypeResult StatusMegarry Aguila MDCHEMISTRY ORDERABLES Final ResultPerforming OrganizationAddressCity/State/ZIP CodePhone Number [facility] [address] [address] * (ABNORMAL) HEPATIC FUNCTION PANEL (05/11/2025 3:53 AM EDT) Only the most recent of2 resultswithin the time period is included. ComponentValueRef RangeTest MethodAnalysis TimePerformed AtPathologist Signature Albumin3.3(L)3.5 - 5.0 g/dL05/11/2025 4:44 AM [facility] LABORATORYBilirubin Direct0.2<0.3 mg/dL05/11/2025 4:44 AM [facility] LABORATORYBilirubin Total0.6<1.5 mg/dL05/11/2025 4:44 AM [facility] JMKYDGKOHBVYT0270 - 126 U/L05/11/2025 4:44 AM [facility] FNPDBLWQXVKXP39(H)10 - 52 U/L05/11/2025 4:44 AM [facility] AEOQZBUAJGKHV8803 - 39 U/L 05/11/2025 4:44 AM [facility] LABORATORYTotal Protein 6.3(L)6.4 - 8.3 g/dL05/11/2025 4:44 AM [facility] LABORATORYSpecimen (Source)Anatomical Location / LateralityCollection Method / VolumeCollection TimeReceived TimeBloodVenipuncture / Agkirxz9305/11/2025 3:53 AM EDT05/11/2025 4:16 AM EDT Narrative Authorizing ProviderResult TypeResult StatusDanica Aguila MDCHEMISTRY ORDERABLES Final ResultPerforming OrganizationAddressCity/State/ZIP CodePhone Number [facility] [address] [address] * (ABNORMAL) HEMOGLOBIN & HEMATOCRIT (05/10/2025 5:40 PM EDT)ComponentValueRef RangeTest MethodAnalysis TimePerformed AtPathologist IfqyudcztXmxyfqqzec16.0 (L)13.4 - 16.8 g/dL05/10/2025 6:37 PM [facility] LABORATORYComment:Warmed to 23XYgvifxueub27.5(L)39.6 - 48.8 %05/10/2025 6:37 PM [facility] LABORATORYSpecimen (Source)Anatomical Location / LateralityCollection Method / VolumeCollection TimeReceived Time BloodVenipuncture / Ezelyiy7705/10/2025 5:40 PM EDT05/10/2025 6:02 PM EDT Narrative Authorizing ProviderResult TypeResult StatusDanica Aguila MDHEMATOLOGY ORDERABLES Final ResultPerforming OrganizationAddressCity/State/ZIP CodePhone Number [facility] [address] [address] * VANCOMYCIN LEVEL, TROUGH (PRE DRUG LEVEL) (05/10/2025 5:40 PM EDT)Component ValueRef RangeTest MethodAnalysis TimePerformed AtPathologist Signature Vancomycin, Iujrik83.9Therapeutic Range: 10.0-20.0 mcg/mL mcg/mL05/10/2025 6:25 PM [facility] LABORATORYSpecimen (Source) Anatomical Location / LateralityCollection Method / VolumeCollection Time Received TimeBloodVenipuncture / Olssgsk9505/10/2025 5:40 PM EDT05/10/2025 5:57 PM EDT Narrative Authorizing ProviderResult TypeResult StatusMelpenny Awad RPHDRUG/TOXICOLOGY Final ResultPerforming OrganizationAddressCity/State/ZIP CodePhone Number [facility] [address] [address] * LOWER RESPIRATORY CULTURE, BACTERIAL (05/10/2025 4:30 AM EDT)ComponentValueRef RangeTest MethodAnalysis TimePerformed AtPathologist SignatureCultureGrowth 05/12/2025 7:16 AM [facility] LABORATORYCultureModerate Growth Common oropharyngeal pumztcjw35/15/2025 7:16 AM [facility] LABORATORYGram StainNeutrophils, Rare05/12/2025 7:16 AM [facility] LABORATORYGram StainContaminating bacteria and epithelials, LIGHT 05/12/2025 7:16 AM [facility] LABORATORYGram StainSpecimen is of very poor quality and results may be compromised suggest recollection if clinically xfvjepbcc14/15/2025 7:16 AM [facility] Specimen (Source)Anatomical Location / LateralityCollection Method / Volume Collection TimeReceived TimeRespiratorySPUTUM SPECIMEN / Pdgkjkn3005/10/2025 4:30 AM EDT05/10/2025 6:48 AM EDT Narrative Authorizing ProviderResult TypeResult StatusMegarry Aguila MDMICROBIOLOGY - GENERAL ORDERABLESFinal ResultPerforming OrganizationAddressCity/State/ZIP CodePhone Number [facility] [address] [place] [address] * (ABNORMAL) C REACTIVE PROTEIN (05/10/2025 12:28 AM EDT)ComponentValueRef Range Test MethodAnalysis TimePerformed AtPathologist SignatureC Reactive Protein 37.48(H)<10.00 mg/L05/10/2025 1:16 AM [facility] LABORATORYSpecimen (Source)Anatomical Location / LateralityCollection Method / VolumeCollection TimeReceived TimeBloodVenipuncture / Rftmpuy0805/10/2025 12:28 AM EDT05/10/2025 12:51 AM EDT Narrative Authorizing ProviderResult TypeResult StatusJason A Labroo DPMIMMUNOLOGY ORDERABLESFinal ResultPerforming OrganizationAddressCity/State/ZIP CodePhone Number [facility] [address] [address] * (ABNORMAL) SEDIMENTATION RATE, AUTOMATED (05/10/2025 12:28 AM EDT)Component ValueRef RangeTest MethodAnalysis TimePerformed AtPathologist SignatureESR Xzyaprmxqy056(H)<30 mm/hr05/10/2025 1:24 AM [facility] LABORATORYSpecimen (Source)Anatomical Location / LateralityCollection Method / VolumeCollection TimeReceived TimeBloodVenipuncture / Unknown 05/10/2025 12:28 AM EDT05/10/2025 12:46 AM EDT Narrative Authorizing ProviderResult TypeResult StatusJason A Labroo DPMHEMATOLOGY ORDERABLESFinal ResultPerforming OrganizationAddressCity/State/ZIP CodePhone Number [facility] [address] [address] * US ABDOMEN RUQ/LIVER/GB (05/09/2025 7:21 AM [...] MethodAnalysis TimePerformed AtPathologist SignatureHepatitis B Surface Ag MaplpswsVotavczr22/12/2025 11:02 AM [facility]ORATORYHep B Surface RlGhnhymkyLmksopbn00/12/2025 11:02 AM [facility]ORATORYHep B Core Ab,Total (IgG+IgM)Negative Cbwhgmua06/12/2025 11:02 AM [facility] Hepatitis C KnjyqsavPqtotublGtnfxpjp67/12/2025 11:02 AM [facility] LABORATORYSpecimen (Source)Anatomical Location / Laterality Collection Method / VolumeCollection TimeReceived TimeBloodVenipuncture / Tjaxhjl6105/09/2025 6:39 AM EDT05/09/2025 8:55 AM EDT Narrative Authorizing ProviderResult TypeResult StatusAndglen Pineda MD IMMUNOLOGY ORDERABLESFinal ResultPerforming OrganizationAddressCity/State/ZIP CodePhone Number [facility] [address] [place] [address] * (ABNORMAL) PT,INR,PTT (05/09/2025 3:37 AM EDT)ComponentValueRef RangeTest MethodAnalysis TimePerformed AtPathologist UypenqhbqKK08.4(H)11.9 - 14.2 sec 05/09/2025 4:36 AM [facility] LABORATORYINR1.10.9 - 1. 4:36 AM [facility] EBITZGLDEAVZU58.6 (L)24.0 - 34.3 sec05/09/2025 4:36 AM [facility] LABORATORYComment:Specimen integrity checked.Specimen (Source)Anatomical Location / LateralityCollection Method / VolumeCollection TimeReceived Time BloodVenipuncture / Ujbmmzq4605/09/2025 3:37 AM EDT05/09/2025 3:56 AM EDT Narrative Authorizing ProviderResult TypeResult StatusAndglen Pineda MD COAGULATIONFinal ResultPerforming OrganizationAddressCity/State/ZIP CodePhone Number [facility] [address] [address] * CALCIUM (05/09/2025 3:37 AM EDT)ComponentValueRef RangeTest MethodAnalysis TimePerformed AtPathologist SignatureCalcium9.18.6 - 10.5 mg/dL05/09/2025 4:24 AM [facility] LABORATORYSpecimen (Source)Anatomical Location / LateralityCollection Method / VolumeCollection TimeReceived Time BloodVenipuncture / Kdjqrvf7105/09/2025 3:37 AM EDT05/09/2025 3:55 AM EDT Narrative Authorizing ProviderResult TypeResult StatusAndglen Pineda MD CHEMISTRY ORDERABLESFinal ResultPerforming OrganizationAddressCity/State/ZIP CodePhone Number [facility] [address] [address] * CHEM 7 (LYTES,BUN,CREA,GLUC) (05/09/2025 3:37 AM EDT)ComponentValueRef Range Test MethodAnalysis TimePerformed AtPathologist AcdoiojwgKmzzfx836211 - 145 mmol/L05/09/2025 4:24 AM [facility] Potassium4.23.5 - 5.0 mmol/L05/09/2025 4:24 AM [facility] DKQPVICEWVVcluzyhk22189 - 108 mmol/L05/09/2025 4:24 AM [facility] XJGMUAIRXRFW34294 - 31 mmol/L05/09/2025 4:24 AM [facility] XNHXWREXROOhfiacy580Bptswqevns: 70-179 mg/dL; Fastin-99 mg/dL05/09/2025 4:24 AM [facility] PTVZGZGEHQZAY204 - 25 mg/dL05/09/2025 4:24 AM [facility] LABORATORYCreatinine0.920.70 - 1.30 mg/dL05/09/2025 4:24 AM [facility] LABORATORYBun/Crea Ryhel8423/12/2025 4:24 AM [facility] LABORATORYOsmolality (Calculated)089064 - 305 mOsm/kg05/09/2025 4:24 AM [facility] LABORATORYAnion Kde748 - 17 mmol/L05/09/2025 4:24 AM [facility] LABORATORYeGFR, CKD-EPI, Male81>=60 mL/min/1.88u41605/09/2025 4:24 AM [facility] LABORATORYComment:Reported eGFR is based on the CKD-EPI 2020 equation using creatinine, age, and sex.Specimen (Source)Anatomical Location / LateralityCollection Method / VolumeCollection TimeReceived TimeBloodVenipuncture / Xxeuqzd8105/09/2025 3:37 AM EDT05/09/2025 3:55 AM EDT Narrative Authorizing ProviderResult TypeResult StatusJose Manuel Pineda MD CHEMISTRY ORDERABLESFinal ResultPerforming OrganizationAddressCity/State/ZIP CodePhone Number [facility] [address] [address] * PHOSPHATE, INORGANIC (05/09/2025 3:37 AM EDT)ComponentValueRef RangeTest MethodAnalysis TimePerformed AtPathologist SignaturePhosphorous3.22.2 - 4.6 mg/dL05/09/2025 4:24 AM [facility] Specimen (Source)Anatomical Location / LateralityCollection Method / Volume Collection TimeReceived TimeBloodVenipuncture / Cmtenld0105/09/2025 3:37 AM EDT 05/09/2025 3:55 AM EDT Narrative Authorizing ProviderResult TypeResult StatusAndglen Pineda MD CHEMISTRY ORDERABLESFinal ResultPerforming OrganizationAddressCity/State/ZIP CodePhone Number [facility] [address] [address] * MAGNESIUM (05/09/2025 3:37 AM EDT)ComponentValueRef RangeTest MethodAnalysis TimePerformed AtPathologist SignatureMagnesium2.01.6 - 2.6 mg/dL05/09/2025 4:24 AM [facility]ATORYSpecimen (Source) Anatomical Location / LateralityCollection Method / VolumeCollection Time Received TimeBloodVenipuncture / Zppumba1705/09/2025 3:37 AM EDT05/09/2025 3:55 AM EDT Narrative Authorizing ProviderResult TypeResult StatusJose Manuel Pineda MD CHEMISTRY ORDERABLESFinal ResultPerforming OrganizationAddressCity/State/ZIP CodePhone Number [facility] [address] [address] * XR CHEST (OUTSIDE IMAGE) (05/07/2025)Specimen (Source)Anatomical Location / LateralityCollection Method / VolumeCollection TimeReceived Time05/07/2025 Narrative RADIOLOGY - 05/09/2025 3:06 PM EDT Outside Imaging Study for Support of Clinical Care. This study was sent from an outside facility to [facility] for support of clinical care of the patient within the [facility]. Procedure Note [facility] Outside Orders, External Images - 05/09/2025 Outside Imaging Study for Support of Clinical Care. This study was sentfrom an outside facility to [facility] for support of clinical care [...] was sent from an outside facility to [facility] for support of clinical care of the patient within the [facility]. Procedure Note [facility] Outside Orders, External Images - 05/09/2025 Outside Imaging Study for Support of Clinical Care. This study was sentfrom an outside facility to [facility] for support of clinical care of thepatient within the [facility]. Authorizing ProviderResult TypeResult StatusMegarry Aguila MDCT ORDERABLESFinal ResultPerforming OrganizationAddressCity/State/ZIP CodePhone Number RADIOLOGY from Last 3 Months Insurance * Guarantor: Tristin Powell Sr. EAcanayeliunt TypeRelation to PatientDate of BirthPhone Billing AddressPersonal/RfqrlaSxkn1940 [address] [place] [id number] * Guarantor: Tristin Powell Sr.unt TypeRelation to PatientDate of BirthPhone Billing AddressPersonal/FphrsdBjcs1940 [address] [place] [phone] Advance Directives For more information, please contact: [phone] (7:30 AM - 6PM Lory/[facility], Monday-Monday) TypeDate RecordedPatient RepresentativeExplanationHealthCare Power of Autos Disassembler 10/08/2018 * Full Code (Latest Code Status on File) Date ActivatedDate InactivatedComments05/09/2025 4:40 AM * Full Code Date ActivatedDate SroxppkkjbsBovjoswg16/18/2021 2:40 PM05/09/2025 4:40 AM * Full Code Date ActivatedDate InactivatedComments09/03/2018 11:29 AM07/15/2021 2:40 PM * Full Code Date ActivatedDate InactivatedComments09/01/2011 7:48 AM09/04/2011 4:13 PM NameRelationshipHealthcare Agent RelationshipCommunicationJudy Ann MarshallSelect Medical [facility] [place] Care Agent* Care Teams Team MemberRelationshipSpecialtyStart DateEnd Date Nikko Bird MD [address] [place] [address] PCP - GeneralFamily Bgezklpa25/4/18
--- OUTSIDE RECORDS SUMMARY | 2025-06-18 13:01 | XMS_ITS | Clinical Summary ---
Author Organization [facility] Address [address] [place] [address] Care Team Providers Care Small Electric Engine Technician Name Role Phone Nikko Lovelace MD Unavailable Nikko Lovelace MD Primary Care Provider [phone] Elaine Saab LPN Unavailable Allergies Active AllergyReactionsCriticalityNoted KymgSpreltlkHpfispdbtdoZpqagli71/13/2023 GabapentinGI cnnqomvnjgn28/18/2383Bpuqyhnirf68/05/2025 Other Reaction(s): Weakness Medications MedicationSigDispense QuantityRefillsLast FilledStart [...] 17 g by mouth in the morning.5Active Ubxiwhg-Ucwuemglxve-Jaceemvawm (Breztri Aerosphere) 160-9-4.8 MCG/ACT aerosol Indications:Pneumonia due [...] eczematoid otitis externa of right ear 06/10/2025Rhinovirus tuptfprex79/23/1780Shmgmk75/12/2116Edbujwupnc33/12/2025 Opioid dependence, tczlulzjyzfzu42/05/2025 Overview (05/02/2025): Noted by [facility] last documented on [id number] Assessment & Plan [...] Ischemic toe ulcer, right, with fat layer xverayy8904/14/2025 Assessment & Plan (04/14/2025 1:37 PM EDT): Needs to finish antibiotic and needs follow up with podiatry Osteomyelitis of right foot04/14/2025 Assessment & Plan (04/14/2025 1:45 PM EDT): Will get stat MRI Will do stat Podiatry referral If worsens go to ER Currently no drainage Carotid stenosis, asymptomatic, cruxofplf25/18/2025Unspecified chronic trpxrbeywg69/10/2025quired absence of left foot11/04/2024 Assessment & Plan [...] EDT): resolved Hx of CABG05/28/2024Secondary hypercoagulable state ([facility])4Pulmonary hypertension, ackbcxjivva02/30/2024 Assessment & Plan (11/04/2024 11:25 AM EDT): Has water pills From COPD Other thrombophilia ([facility])03/21/2024 Assessment & Plan (03/21/2024 3:10 PM EDT): Has blood thinner Medicare annual wellness visit, azwsdgwwzd96/10/2023 Assessment & Plan (06/10/2025 10:25 AM EDT): [...] do 6 month regular US Abnormal radiographic uxjkrqfjrfv40/13/2023hronic obstructive pulmonary disease, /13/2023 Assessment & Plan (11/04/2024 11:25 AM EDT): From second hand smoke Chronic diastolic (congestive) heart dgjqrpz7104/09/2023 Assessment & Plan (11/04/2024 11:25 AM EDT): Foot swells Ohuhdwqee06/13/2023sthmatic lzbnjtmkag38/13/2023therosclerotic heart disease of [place] coronary artery without angina miwmgbzh07/13/2023arotid artery kxuwjhtl30/13/2023 Assessment & Plan (06/06/2023 11:20 AM EDT): Getting Carotid dopplers Chronic kidney disease due to iiweohpwiglf51/13/2023Slow transit constipation 04/09/2023Elevated erythrocyte sedimentation rate04/09/2023Left sciatic nerve pain04/09/20235310Jylpvalqwn05/13/2023Other chronic pain04/09/2023 Assessment & Plan (08/12/2024 1:41 [...] for this patient. Paresthesia of skin04/09/2023aroxysmal atrial amsyywmkjkdf78/13/2023VD (peripheral vascular disease) with ywzgjhjcchgm66/13/2023 Assessment & Plan (04/14/2025 1:37 PM EDT): [...] Pain meds effective Pneumonia due to infectious aucxcxvh77/13/2023 Assessment & Plan (05/20/2025 1:21 PM EDT): Rinse out mouth with water after use Needs CT scan after a month Polymyalgia rheumatica ([facility])04/09/2023rimary osteoarthritis of right hip 04/09/2023Seasonal allergic buyvosej79/13/2023 Assessment & Plan (11/04/2024 11:23 AM EDT): [...] watch for any sugar elevations. Solitary pulmonary tahfsd2504/09/2023Stage 3a chronic kidney xcujrod1404/09/2023 Acquired absence of unspecified foot04/09/2023 Assessment & Plan (11/04/2024 11:22 AM EDT): S/p amputation but has prosthesis Assessment & Plan (02/05/2024 3:03 PM EDT): Sees Vascular doctor this summer in March Suazkyiv18/25/2023Lumbosacral spondylosis without atczbyrsjw61/25/2023 Assessment & Plan (04/11/2023 11:31 AM EDT): [...] was reviewed for this patient. Mitral valve fxbmqaogtkgym94/27/5742Qijjqjv70/27/2023osterior tibial tendinitis of right leg11/07/2022Thoracic aortic aneurysm without jwsbqyq85/18/2022S/P total hip wvlikdrepupo98/18/2021ortic valve ojucpftibteom56/07/2021lass 1 obesity with body mass index (BMI) [...] for a goal BMI <30. Atherosclerosis of [place] arteries of extremities with rest pain, unspecified yjqhzsozw87/08/2019 Overview (06/05/2023): Last Assessment & Plan: Pt s/p LLE angiogram with Dr Hahn who feels that the pt has no further endovascular options. He has consulted Dr. Millan for a possible tibial bypass. Pt s/p LLE critical limb ischemia [place] class 4 rest pain with distal discoloration to histoes. Pt is s/p L pop angioplasty with stent placement 08/09 at [facility] in [place], [place]. Pt was placed on Xarelto and [...] bypass. Pt s/p LLE critical limb ischemia [place] class 4 rest pain with distal discoloration to his toes. Pt is s/p L pop angioplasty with stent placement 08/09 at [facility] in [place], [place]. Pt was placed on Xarelto and [...] long as possible Claudication of right lower gtigqqpja85/12/2018 Overview (06/05/2023): Added automatically from request for surgery [id number] Last Assessment & Plan: Heparin drip initiated, [...] management Added automatically from request for surgery [id number] Last Assessment & Plan: Heparin drip initiated, pharmacy to manage per protocol ASA and Plavix started Cardiovascular surgeon consulted PT/OT evaluation and treatment Monitor labs, VS and telemetry as ordered Pain management Last Assessment & Plan: S/P Left Lower Extremity Angiogram with ballooning and stent 08/09/2018 Post op orders per surgeon DVT/GI prophylaxis Monitor labs, VS and telemetry as ordered Pain management Dngozcswu23/04/2016Disorder of lipid dcwzormrmg18/27/0237Tbkxvzvcm86/14/2014 Chest pain in adult08/30/2013Mixed ezxdkniywyllef10/03/8348Uomyboq25/03/2014 Preinfarction zlqidpwq41/03/2014Malignant neoplasm of pckupsas37/25/2011 Assessment & Plan (11/04/2024 11:24 AM EDT): No longer sees urology. S/p seeds implant in 2009 Assessment & Plan (03/21/2024 3:10 PM EDT): Seen in November by Urologist and released from Care Benign essential zslankaclaqa27/07/2008 Assessment & Plan (03/21/2024 3:04 PM EDT): [...] prescribed. DASH diet handouts Chronic ischemic heart espdtbd0507/04/2008Impotence of organic cvwwwf9007/04/2008 Resolved Problems ProblemNoted DateDiagnosed DateResolved DateAcute cystitis without hematuria 07/ Assessment & Plan (03/21/2024 3:09 PM EDT): Add Probiotic to help replenish the good bacteria that are destroyed by the Antibiotics Florastor Florajen Align or try Activia in Yogurt Probiotics reduce the risk of antibiotic induced diarrhea Flu vaccine needNausea1cute exacerbation of chronic obstructive pulmonary cwwujal78ataract04/09/2023 04/26/20245866Xqdnpvrfydfj74Sinusitis Assessment & Plan (09/19/2023 10:53 AM EST): [...] Dr. Messina as needed if symptoms persist Xdeyumkjkt85Gangrene of left foot Wpxbjoocjjtflixgxv40/09/201908/30/2024 Overview (06/05/2023): Last Assessment & Plan: Patient [...] with PCP for further treatment options Pure cbrybjzkqobvtqtbakpm50/14/201808/30/2024 Overview (06/05/2023): Last Assessment & Plan: Resume home medications Follow up after discharged with PCP Last Assessment & Plan: Resume home medications Follow up after discharged with PCP Msxxpmqtd19bdominal painvascular necrosis of bone of hip Overview (06/05/2023): Right hip Right hip Herpes kqqzjf904Pain of left lower zzpzayspa96/08/2012 04/26/2024 Overview (06/05/2023): Last Assessment & Plan: -Presented to [facility] 09/04/2018 as a transfer from [place] for second opinion regarding left lower extremity [...] pain -Reports pain is uncontrolled with AGRICULTURAL RESEARCH DIRECTOR Dilaudid pump, and pain does not [...] questions Last Assessment & Plan: -Presented to [facility] 09/04/2018 as a transfer from [place] for second opinion regarding left lower extremity [...] pain -Reports pain is uncontrolled with AGRICULTURAL RESEARCH DIRECTOR Dilaudid pump, and pain does not [...] RN -Please call with questions Encounters DateTypeDepartmentCare YxgvCewawsddniy71/16/2025bstract [facility] [address] [facility] [address] [place] [address] Nikko Lovelace MD 06/12/2025bstract [facility] [address] [facility] [address] [place] [address] Nikko Lovelace MD 06/11/2025Patient Outreach [facility] [address] [place] [address] Elaine Saab LPN 06/10/2025 10:30 AM EDTOffice Visit [facility] [address] [facility] [address] [place] [address] Nikko Lovelace MD Routine general medical examination at health care facility (Primary Dx); Screening for lipid disorders; Medicare annual wellness visit, subsequent; 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HCC); Encounter for immunization; Opioid dependence, uncomplicated (HCC); Acute eczematoid otitis externa of right ear06/10/2025amboo flowsheet [facility] [address] [place] [address] Nikko Lovelace MD 06/10/20256957Wzmksz66/07/2025Patient Outreach [facility] [address] [place] [address] Elaine Saab LPN 05/29/2025Refill [facility] [address] [place] [address] Nikko Lovelace MD PVD (peripheral vascular disease) with lnxtmrqhaibp03/29/2025Telephone [facility] [address] [place] [address] Elaine Saab LPN 05/26/2025Patient Outreach [facility] [address] [place] [address] Elaine Saab LPN 05/21/2025Patient Outreach [facility] [address] [place] [address] Elaine Saab PRICE ECONOMIST 05/20/2025 1:00 PM EDTOffice Visit [facility] [address] [place] [address] Nikko Lovelace MD Pneumonia due to infectious organism, unspecified laterality, unspecified part of lung (Primary Dx)05/20/20252085Akloma00/17/2025Patient Outreach [facility] [address] [place] [address] Elaine Saab PRICE ECONOMIST 05/14/2025bstract [facility] [address] [place] [address] Nikko Lovelace MD 05/12/2025bstract [facility] [address] [place] [address] Nikko Lovelace MD 05/06/2025bstract [facility] [address] [place] [address] Nikko Lovelace MD 05/06/2025bstract [facility] [address] [place] [address] Nikko Lovelace MD 05/05/2025Patient Outreach [facility] [address] [place] [address] Elaine Saab LPN 05/02/2025 1:00 PM EDTOffice Visit [facility] [address] [place] [address] Zoë King PA Hemoptysis (Primary Dx); Qrmnihc5505/02/2025amboo flowsheet [facility] [address] [facility] [address] [place] [address] Zoë King PA 05/02/20250262Yakpss61/04/2025Patient Outreach [facility] [address] [place] [address] Elaine Saab LPN 05/01/2025bstract [facility] [address] [place] [address] Elaine Saab LPN 04/30/2025linisync Result Encounter [facility] External Department Unsolicited Provider, Generic External Data 04/29/2025Refill [facility] [address] [place] [address] Nikko Lovelace MD Benign essential ezbjkfkcpmtx52/02/2025Telephone [facility] [address] [place] [address] Sheree Murrell Medication Question (Has a terrible cold and runny nose wanted to know if you could zuly in a z-packfor him.)04/21/2025Telephone [facility] POPULATION [facility] [address] [place] [phone] Elaine Saab LPN 04/21/2025Patient Outreach [facility] [address] [place] [address] Elaine Saab LPN 04/16/2025linisync Result Encounter [facility] External Department Unsolicited Provider, Generic External Data 04/15/2025 8:00 AM EDTAncillary Procedure [facility] [address] [place] [address] Osteomyelitis of right foot, unspecified type (HCC)04/15/2025linisync Result Encounter [facility] External Department Unsolicited Provider, Generic External Data 04/15/2025Patient Outreach [facility] [address] [place] [address] Elaine Saab LPN 04/15/2025Results Follow-Up [facility] [address] [place] [address] Nikko Lovelace MD MR foot right wo IV tncnjnsi71/19/8041Pwmvkf48/18/2025 1:30 PM EDTOffice Visit [facility] [address] [place] [address] Nikko Lovelace MD PVD (peripheral vascular disease) with claudication (Primary Dx); Ischemic toe ulcer, right, with 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); Osteomyelitis of right foot, unspecified type (HCC)04/14/20253911Ffqdmb03/18/2025 Patient Outreach [facility] [address] [place] [address] Elaine Saab LPN 04/10/2025bstract [facility] [address] [place] [address] Emmanuel Gonzalez DPM 04/10/2025Telephone [facility] [address] [place] [address] Hemmer, Zoë M, PA posible med mwrqprabsrh25/14/2025bstract [facility] [address] [facility] [address] [place] [address] Nikko Lovelace MD 04/09/2025bstract [facility] [address] [place] [address] Nikko Lovelace MD 04/09/2025Telephone [facility] [address] [facility] [address] [place] [address] Zoë King PA 04/09/2025Refill [facility] [address] [facility] [address] [place] [address] Zoë King PA Paroxysmal atrial fibrillation (HCC)04/08/2025 11:30 AM EDTOffice Visit [facility] [address] [facility] [address] [place] [address] Zoë King PA PVD (peripheral vascular disease) with claudication (Primary Dx); Acquired absence of left foot (HCC); Ischemic toe ulcer, right, with 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)04/08/2025External Result Encounter [facility] External Department Unsolicited Zoë King PA 04/08/2025bstract [facility] [address] [facility] [address] [place] [address] Nikko Lovelace MD 04/08/2025amboo flowsheet [facility] [address] [facility] [address] [place] [address] Zoë King PA 04/08/20256550Slfpsk76/11/2025Patient Outreach [facility] [address] [place] [address] Elaine Saab LPN 04/03/2025Refill [facility] [address] [facility] [address] [place] [address] Nikko Lovelace MD PVD (peripheral vascular disease) with kkqtynvufctn25/04/2025 1:45 PM EDTOffice Visit [facility] [address] [facility] [address] [place] [address] Nikko Lovelace MD PVD (peripheral vascular disease) with claudication; History of prostate cancer; Urinary ntmmrdlup28/04/7588Lepzla33/04/2025Patient Outreach [facility] [address] [place] [address] Elaine Saab PRICE ECONOMIST 03/24/2025Telephone [facility] [address] [place] [address] Elaine Saab, [facility] 03/24/2025Patient Outreach [facility] [address] [place] [address] Elaine Saab, [facility] 03/24/2025bstract [facility] [address] [facility] [address] [place] [address] Nikko Lovelace MD 03/20/2025bstract [address] [place] [address] Nikko Lovelace MD from Last 3 Months Immunizations ImmunizationAdministration DatesNext DueInfluenza, High Dose Seasonal, Preservative Free06/10/2025,06/21/2021,06/02/2020,06/06/2018,05/18/2015 Influenza, High-dose Seasonal, Quadrivalent, Preservative Free08/12/2024, 06/06/2023,05/31/2022,06/06/2018Influenza, injectable, /25/2017 Influenza, injectable, quadrivalent, preservative free07/11/2016Influenza, seasonal, mrlqfhtwew35/01/2020Influenza, trivalent, jhccqlocrd05/22/2019 Pneumococcal Conjugate PCV 131,05/18/2015Pneumococcal Polysaccharide ZFLO7766/11/5383Zqge05 Family History Medical HistoryRelationNameCommentsStrokeOtherFamily historyRelationNameStatus CommentsFatherDeceasedMotherDeceasedOtherFamily historySiblingDeceasedSister Deceaseddeceased from covid Social History Tobacco UseTypesPacks/DayYears UsedDateSmoking Tobacco: NeverSmokeless Tobacco: Never Tobacco Cessation:Counseling Given: Yes Alcohol UseStandard Drinks/WeekCommentsNot Currently0 (1 standard drink = 0.6 oz pure alcohol)Coffee 1-2 cups per zkoM0350 Health LiteracyAnswerDate RecordedHow often do you need [...] at all 06/21/2024HQ-2AnswerDate RecordedPatient Health Questionnaire-2 Score0 06/10/2025[facility] Equality of Occupational Health - Occupational Stress QuestionnaireAnswerDate [...] InformationValueDate RecordedSex Assigned at BirthNot on fileLegal OeoYraq2511/09/2022 7:18 PM EDT Gender IdentityNot on fileSexual OrientationNot on file Last Filed Vital Signs Vital SignReadingTime TakenCommentsBlood Smpgpqnb013/6806/10/2025 10:17 AM EDT Kxmzy491706/10/2025 10:17 AM ULXShogdacvuyy66 ??C (98.6 ??F)05/02/2025 1:04 PM EDT Respiratory Ftve318605/02/2025 1:04 PM EDTOxygen Wuwwjaibib90%06/10/2025 10:17 AM EDTInhaled Oxygen Concentration--Bgsnze364 kg (243 lb)06/10/2025 10:17 AM EDT Xdjadt809 cm (6' 2 )06/10/2025 10:17 AM EDTBody Mass Index31. 10:17 AM EDT Plan of Treatment Health MaintenanceDue DateLast DoneCommentsMedicare Annual Wellness (AWV) , 04/26/2024, 06/06/2023neumococcal Vaccine: 65+ Years Gqklnczrg62/11/2021, 05/28/2020, 05/18/2015Influenza OohqursXepyywios66/14/2025, 08/12/2024, 06/06/2023, Additional history exists Procedures Procedure NamePriorityDate/TimeAssociated DiagnosisCommentsMHPT DIFFERENTIAL Ozqhdyo3504/30/2025 11:00 AM EDT ALL SED HWMXEyypyhm58/03/2025 11:00 AM EDT ALL CBC WITH AUTO LVMNLpykmpj92/03/2025 11:00 AM EDT ALL C REACTIVE CJJIWMTWnsyttp66/03/2025 11:00 AM EDT ALL BASIC METABOLIC WBKEYFvaysxy97/03/2025 11:00 AM EDT XR FOOT RT MIN 3V04/16/2025 12:49 PM EDT ALL C REACTIVE ALVLFDEAndnhgc99/19/2025 1:47 PM EDT ALL BASIC METABOLIC QPURECoklqqh85/19/2025 1:47 PM EDT ALL SED CHUANxxvgzq21/19/2025 1:47 PM EDT ALL CBC WITH AUTO KKDLNbhzpmf43/19/2025 1:47 PM EDT MR FOOT RIGHT WO IV FMMQHSEEIeahnyg85/19/2025 8:44 AM EDT Osteomyelitis of right foot, unspecified type (HCC) JVPLVjqbjfz79/12/2025 12:00 AM EDT HERPES SIMPLEX VIRUS 8Jrjveez14/12/2025 12:00 AM EDT from Last 3 Months Results * (ABNORMAL) MHPT DIFFERENTIAL (04/30/2025 11:00 AM EDT)ComponentValueRef Range Test MethodAnalysis TimePerformed AtPathologist SignatureSEGMENTED NEUTROPHILS % YCAEEG03.043.0 - 75.0TBHLYMPHOCYTES PERCENT VKYPXS42.020.5 - 60.0 %TBH MONOCYTES PERCENT ASMRPI15.0(H)1.7 - 12.0 %TBHEOSINOPHILS PERCENT RASXJG71.0 (H)0.9 - 7.0 %TBHBASOPHILS PERCENT MANUAL0.0(L)0.2 - [...] Data Provider CLINISYNCFinal ResultPerforming OrganizationAddressCity/State/ZIP CodePhone Number [facility] * (ABNORMAL) ALL SED RATE (04/30/2025 11:00 [...] Data Provider CLINISYNCFinal ResultPerforming OrganizationAddressCity/State/ZIP CodePhone Number [facility] * (ABNORMAL) ALL CBC WITH AUTO DIFF [...] - 35.2 g/dLTBHTBH RDW14.811.0 - 15.0 %TBHTBH CGJ359924 - 450 10 3/uLTBHTBH MPV9.89.5 - 13.5 fLTBHSpecimen (Source)Anatomical Location / LateralityCollection Method / VolumeCollection TimeReceived Time04/30/2025 11:00 AM EDT04/30/2025 11:01 AM EDT Narrative CLINISYNC - 04/30/2025 1:21 PM EDT Authorizing ProviderResult TypeResult StatusGeneric External Data Provider CLINISYNCEdited Result - FinalPerforming OrganizationAddressCity/State/ZIP Code Phone Number [facility] * (ABNORMAL) ALL C REACTIVE PROTEIN [...] included. ComponentValueRef RangeTest MethodAnalysis TimePerformed AtPathologist Signature IIKJLG307296 - 145 mmol/LTBHPOTASSIUM4.83.5 - 5.1 mmol/ZMXRNBZJJFOT67650 - 107 mmol/LTBHCARBON CAXSFCQ54.921.0 - 32.0 mmol/LTBHANION GAP13.9IHVDKCLDCW90624 - 106 mg/dLTBHBLOOD UREA BOGDMFYR33.07.0 - 18.0 mg/dLTBHCREATININE1.040.70 - 1.30 mg/dLTBHTBH EGFR-AF [place]ERO[place]IAN>60>=60 mL/min/1.73m 2TBHTBH EGFR-NON AF [place]IAN>60 >=60 mL/min/1.73m 2TBHBUN CREATININE RATIO12.2QUFPXDLIWL8.38.5 - 10.1 mg/dLTBH Specimen (Source)Anatomical Location / [...] EDT Narrative 04/16/2025 12:52 PM EDT [facility] ?[address] ? [place] [address] ?XRay Report ? Signed ? Patient: SHERRY,TRISTIN ?MR#: [id number] ?? : 1940 ?Acct:[id number] ?? Age/Sex: 85 / M ?ADM Date: 08/19/25 ?? Loc: RAD ? Attending Dr: Savanna Feliz D.P.M. ? Ordering Physician: Savanna Feliz D.P.M. ?? Date of Service: 04/15/25 ?? Procedure(s): XR foot RT min 3V ?? Accession Number(s): [id number] ? cc: NIKKO LOVELACE ; Savanna Feliz D.P.M. ? [facility] ? [address] ? [place] [address] ? Patient Name: ?? TRISTIN GRAY ? MRN: [facility]:[id number] ? date: 1940 ?Sex: M ?? Assigned Patient Location: RAD ?? Current Patient Location: WC ?? Accession/Order Number: [id number] ?? Exam Date: 04/16/2025 ??12:46 ?Report Date: [...] Dictation Location: RADIO-PC-20 ? Electronically authenticated by: [id number] ??Y ?? Date: 04/16/2025 ??12:49 ? Dictated By: ?Cristian Rodriguez D.O. ? Signed By: ?04/16/25 1252 ? DD/ 1249 ? TD/TT: ? Sorting Machine Operator: Procedure Note Radiology, Radiologist, - 04/16/2025 [place] [address] XRay Report Signed Patient: TRISTIN GRAYMR#: [id number] : 9Acct:[id number] Age/Sex: 85 / MADM Date: 04/15/25 Loc: RAD Attending Dr: Savanna Feliz D.P.M. Ordering Physician: Savanna Feliz D.P.M. Date of Service: 04/15/25 Procedure(s): XR foot RT min 3V Accession Number(s): [id number] cc: NIKKO LOVELACE ; Savanna Feliz D.P.M. The [place] [id number] Patient Name: TRISTIN GRAY MRN: [facility]:[id number] date: 1940 Sex: M Assigned Patient Location: [facility] Current Patient Location: Accession/Order Number: [id number] Exam Date: 04/16/2025 12:46 Report Date: 04/16/2025 [...] Rodriguez M.D. 04/16/2025 12:49 PM Dictation Location: [place] [address] Electronically authenticated by: [id number] Y Date: 2:49 Dictated By: Cristian Rodriguez D.O. Signed By:04/16/25 1252 DD/ 1249 TD/TT: Sorting Machine Operator: Authorizing ProviderResult TypeResult StatusGeneric External Data Provider CLINISYMI IMAGINGFinal Result * MR foot right wo [...] AM EDT)ComponentValueRef RangeTest Method Analysis TimePerformed AtPathologist AsbajajmhTHFJ22.731(A)23.000 - 31.199 ppm 04/09/2025 1:18 PM EDTHealthTrackRx of TaylorsvilleMECADetected(A)23.000 - 31.199 ppm04/09/2025 1:18 PM EDTHealthTrackRx of TaylorsvilleTET B, TET M23.751 (A)23.000 - 27.778 ppm04/09/2025 1:18 PM EDTHealthTrackRx of TaylorsvilleTET B, TET MDetected(A)23.000 - 27.778 ppm04/09/2025 1:18 PM EDTHealthTrackRx of TaylorsvilleACINETOBACTER BAUMANNII (ACUTE WOUND)019.961 - 24.689 ppm04/09/2025 1:19 PM EDTHealthTrackRx of TaylorsvilleACINETOBACTER BAUMANNII (ACUTE WOUND)Not Bbtecmqm94.961 - 24.689 ppm04/09/2025 1:19 PM EDTHealthTrackRx of [place] BACTEROIDES FRAGILIS, VULGATUS (ACUTE WOUND)23.270(A)19.961 - 24.689 ppm 04/09/2025 1:18 PM EDTHealthTrackRx of TaylorsvilleBACTEROIDES FRAGILIS, VULGATUS (ACUTE WOUND)Detected(A)19.961 - 24.689 ppm04/09/2025 1:18 PM EDT [facility] of TaylorsvilleCITROBACTER FREUNDII (ACUTE WOUND)019.961 - 24.689 ppm04/09/2025 1:19 PM EDTHealthTrackRx of [place]villeCITROBACTER FREUNDII (ACUTE WOUND)Not Bzoltztt07.961 - 24.689 ppm04/09/2025 1:19 PM EDT [facility] [place]CLOSTRIDIUM PERFRINGENS, NOVYI, SEPTICUM (ACUTE WOUND)019.961 - 24.689 ppm04/09/2025 1:19 PM EDTHealth[facility]Rx of [place] CLOSTRIDIUM PERFRINGENS, NOVYI, SEPTICUM (ACUTE WOUND)Not Njlyrpzi88.961 - 24.689 ppm04/09/2025 1:19 PM EDTHealthTrackRx of [place]lorsvilleENTEROBACTER CLOACAE COMPLEX, KLEBSIELLA (ENTEROBACTER) AEROGENES ((A)019.961 - 24.689 ppm 04/09/2025 1:19 PM EDTHealthTrackRx of [place]orsvilleENTEROBACTER CLOACAE COMPLEX, KLEBSIELLA (ENTEROBACTER) AEROGENES ((A)Not Bsdxoasm61.961 - 24.689 ppm 04/09/2025 1:19 PM EDTHealthTrackRx of [place]orsvilleENTEROCOCCUS FAECALIS, TUZVEXR506.961 - 24.689 ppm04/09/2025 1:19 PM EDT[facility] [place] ENTEROCOCCUS FAECALIS, FAECIUMNot Luxmbqpo38.961 - 24.689 ppm04/09/2025 1:19 PM EDTHealthTrackRx of [place]orsvilleESCHERICHIA COLI (ACUTE WOUND)019.961 - 24.689 ppm04/09/2025 1:19 PM EDT[facility] of [place]orsvilleESCHERICHIA COLI (ACUTE WOUND)Not Whdbyrpa75.961 - 24.689 ppm04/09/2025 1:19 PM EDT [facility] [place]villeKLEBSIELLA PNEUMONIAE, OXYTOCA (ACUTE WOUND)019.961 - 24.689 ppm04/09/2025 1:19 PM EDTHealthTrackRx of [place]orsvilleKLEBSIELLA PNEUMONIAE, OXYTOCA (ACUTE WOUND)Not Wfbvdxxu49.961 - 24.689 ppm04/09/2025 1:19 PM EDT[facility]Rx of [place]orsvillePROTEUS MIRABILIS, VULGARIS (ACUTE WOUND)22.966(A)19.961 - 24.689 ppm04/09/2025 1:18 PM EDT[facility]TrackRx of [place]orsvillePROTEUS MIRABILIS, VULGARIS (ACUTE WOUND)Detected(A)19.961 - 24.689 ppm04/09/2025 1:18 PM EDT[facility]Rx of [place]orsvillePSEUDOMONAS AERUGINOSA (ACUTE WOUND)019.961 - 24.689 ppm04/09/2025 1:19 PM EDT[facility] of [place]villePSEUDOMONAS AERUGINOSA (ACUTE WOUND)Not Ugbpdtmq49.961 - 24.689 ppm 04/09/2025 1:19 PM EDT[facility] of [place]orsvilleSERRATIA MARCESCENS (ACUTE WOUND)019.961 - 24.689 ppm04/09/2025 1:19 PM EDT[facility] [place] SERRATIA MARCESCENS (ACUTE WOUND)Not Ofisrvcs60.961 - 24.689 ppm04/09/2025 1:19 PM EDT[facility]TrackRx of [place]orsvilleSTAPHYLOCOCCUS AUREUS (ACUTE WOUND) 24.790(A)19.961 - 24.689 ppm04/09/2025 1:18 PM EDT[facility] [place] STAPHYLOCOCCUS AUREUS (ACUTE WOUND)Detected(A)19.961 - 24.689 ppm04/09/2025 1:18 PM EDTHealth[facility]Rx of [place]orsvilleSTREPTOCOCCUS AGALACTIAE (GROUP B STREP) (ACUTE WOUND)019.961 - 24.689 ppm04/09/2025 1:19 PM EDTHealth[facility] of [place]orsvilleSTREPTOCOCCUS AGALACTIAE (GROUP B STREP) (ACUTE WOUND)Not Detected 19.961 - 24.689 ppm04/09/2025 1:19 PM EDT[facility] [place] STREPTOCOCCUS PYOGENES (GROUP A STREP) (ACUTE WOUND)019.961 - 24.689 ppm 04/09/2025 1:19 PM EDT[facility] of [place]orsvilleSTREPTOCOCCUS PYOGENES (GROUP A STREP) (ACUTE WOUND)Not Jfyrpyzp09.961 - 24.689 ppm04/09/2025 1:19 PM EDT [facility] [place]orsvilleVIBRIO CHOLERAE, PARAHAEMOLYTICUS, VULNIFICUS (ACUTE WOUND)023.000 - 31.296 ppm04/09/2025 1:19 PM EDTHealth[facility]Rx of [place]orsvilleVIBRIO CHOLERAE, PARAHAEMOLYTICUS, VULNIFICUS (ACUTE WOUND)Not Ilgjadmi98.000 - 31.296 ppm04/09/2025 1:19 PM EDT[facility] [place] Specimen (Source)Anatomical Location / LateralityCollection Method / Volume Collection TimeReceived ScgrGkmvp26/ 4:10 AM EDT Narrative Authorizing ProviderResult TypeResult StatusZoë King PAL BLOOD ORDERABLESEdited Result - FinalPerforming OrganizationAddressCity/State/ZIP Code Phone Number [facility] [place] [address] [facility] [place] [address] * HERPES SIMPLEX VIRUS 1 (04/08/2025 12:00 AM EDT)ComponentValueRef RangeTest MethodAnalysis TimePerformed AtPathologist SignatureHERPES SIMPLEX VIRUS 10 23.000 - 32.355 ppm04/09/2025 11:32 AM EDTHealthTrackRx of [place]orsvilleHERPES SIMPLEX VIRUS 1Not Uxmvldgl43.000 - 32.355 ppm04/09/2025 11:32 AM EDT [facility] [place]villeHERPES SIMPLEX VIRUS 2023.000 - 31.433 ppm 04/09/2025 11:32 AM EDT[facility] of [place]villeHERPES SIMPLEX VIRUS 2Not Axzgcxss77.000 - 31.433 ppm04/09/2025 11:32 AM EDT[facility] [place] HUMAN MONKEYPOX GJVZC932.000 - 32.544 ppm04/09/2025 11:37 AM EDT[facility] of [facility] MONKEYPOX VIRUSNot Choradri25.000 - 32.544 ppm04/09/2025 11:37 AM EDT[facility] of [place]orsvilleVARICELLA ZOSTER VIRUS (HUMAN HERPESVIRUS 3)023.000 - 31.749 ppm04/09/2025 11:32 AM EDTHealth[facility] of LouisvilleVARICELLA ZOSTER VIRUS (HUMAN HERPESVIRUS 3)Not Zthjvqnq19.000 - 31.749 [facility]04/09/2025 11:32 AM EDTHealth[facility]Rx of [place]orsvilleSpecimen (Source) Anatomical Location / LateralityCollection Method / VolumeCollection Time Received McmrHpfbi76/ 4:10 AM EDT Narrative Authorizing ProviderResult TypeResult StatusZoë Arteaga Hemmer PALAB BLOOD ORDERABLESFinal ResultPerforming OrganizationAddressCity/State/ZIP CodePhone Number [facility] [address] [place] [address] from Last 3 Months Insurance Care Teams Team MemberRelationshipSpecialtyStart DateEnd Date Nikko Lovelace MD [address] [facility] [address] [place] [address] PCP - [employer]1 Nikko Lovelace MD [address] [facility] 110 [place] [address] PCP - GeneralFamily Medicine03/09/23 Elaine Saab LPN [address] [facility] 110 [place] [address] 11/15/24
--- OUTSIDE RECORDS SUMMARY | 2025-06-18 13:01 | XMS_ITS ---
Author Organization [facility] Address [address] [place] [address] Care Team Providers Care Correctional Officer Captain Name Role Phone Nikko Bird MD Primary Care Provider [phone] Active Problems ProblemNoted DateDiagnosed DateBronchiectasis, ftowvdunaaezl64/10/2025Acquired absence of left leg below knee07/22/2024Other complications of amputation stump 4Coronary artery jxntwwe5506/11/2024NSTEMI (non-ST elevated myocardial infarction)05/28/2024Hx of CABG05/28/2024Secondary hypercoagulable state 4Pulmonary hypertension, oimzzscoiyq00/30/2024Acute cystitis without fwxjnrukl40/25/2024 Overview (04/22/2024): Last Assessment & Plan: Add Probiotic to help replenish the good bacteria that are destroyed by the Antibiotics Florastor Florajen Align or try Activia in Yogurt Probiotics reduce the risk of antibiotic induced diarrhea Other fzukblshltkkn59/25/2024 Overview (04/22/2024): Last Assessment & Plan: Has blood thinner Flu vaccine need4Routine general medical examination at health care avujvwig84 Overview (10/09/2023): Last Assessment & Plan: Colonoscopy [...] US Acute exacerbation of chronic obstructive pulmonary vnckcol09 Abnormal radiographic nfqmljowrxh34cute on chronic heart failure with preserved ejection zhsimdpw20rthritis04/09/2023 10/09/2023sthmatic afmbvejdqm58arotid artery stenosis Overview (10/09/2023): Last Assessment & Plan: Getting Carotid dopplers Pcuqzeeu61hronic kidney disease due to lktibmkxfihf34/13/2023 10/09/20234243Wwulpkpxlbie91Elevated erythrocyte sedimentation rateLeft sciatic nerve painNeuropathy Other chronic painaresthesia of skin aroxysmal atrial bncrloiopqhb03hantom limb painolymyalgia chhpsonvdm33rimary osteoarthritis of right hipSeasonal allergic rhinitis Sinusitis [...] any sugar elevations. Stage 3a chronic kidney ynhkkdj82hronic diastolic (congestive) heart amtmdtu4504/09/20231084Gbiapher01Lumbosacral spondylosis without qkoniyydpc64Mitral valve regurgitation 11/21/2022Inguinal pain11/21/20224441Yweykwr15/27/2023osterior tibial tendinitis of right leg11/07/2022Hematoma of arm, left, initial dobyjlcnb90/10/2023 Overview (11/21/2022): Last Assessment & Plan: 82 [...] pneumonia of left lower lobe of lung11/03/2022ulmonary uzmbye1901/21/20222727Dleauilzhb58/24/2022Thoracic aortic aneurysm without rupture 01/12/2022oronary artery disease involving [place] coronary artery of [place] heart without angina osgabjoz90/18/2021/P total hip heahguqwfdhy58/18/2021/P transmetatarsal amputation of foot, left07/15/2021ortic valve regurgitation 05/07/2021Peripheral arterial occlusive ihqppux5501/09/2019Gangrene of left foot 10/04/2018Coronary artery disease involving coronary bypass graft of [place] heart without angina ctiaepjk34/09/2019 Overview (11/21/2022): Last Assessment & Plan: Patient with remote coronary artery bypass grafting to 3 vessels. Patient denies chest pain at thistime. Arybkcnwlwdpuskqzk42/09/2019 Overview (11/21/2022): Last Assessment & Plan: Patient [...] a goal BMI <30. Critical lower limb fozkipxv27/08/2019 Overview (11/21/2022): Last Assessment & Plan: Pt s/p LLE angiogram with Dr Hahn who feels that the pt has no further endovascular options. He has consulted Dr. Millan for a possible tibial bypass. Pt s/p LLE critical limb ischemia [place] class 4 rest pain with distal discoloration to his toes. Pt is s/p L pop angioplasty with stent placement 08/09 at [facility] in [place], [place]. Ptwas placed on Xarelto and ASA. [...] medication. ?? Will sign off Peripheral arterial bguxnbj3308/10/2018 Overview (11/21/2022): Last Assessment & Plan: S/P [...] was known to be reduced (0.5) Pure rapmoavrafosptbuwths90/14/2018 Overview (11/21/2022): Last Assessment & Plan: Resume home medications Follow up after discharged with PCP Obesity (BMI 30.0-34.9)08/10/2018 Overview (11/21/2022): Last Assessment & Plan: Diet and lifestyle modifications strongly encouraged Follow up after discharged with PCP for further treatment options Intermittent dpmjazjhopsw06/12/2018 Overview (11/21/2022): Added automatically from request for surgery [id number] Last Assessment & Plan: Heparin drip initiated, pharmacy to manage per protocol ASA and Plavix started Cardiovascular surgeon consulted PT/OT evaluation and treatment Monitor labs, VS and telemetry as ordered Pain management Last Assessment & Plan: S/P Left Lower Extremity Angiogram with ballooning and stent 08/09/2018 Post op orders per surgeon DVT/GI prophylaxis Monitor labs, VS and telemetry as ordered Pain management Nllwfpskp75/04/0601Ahopfmudg03/18/2014bdominal pain07/11/2014Hypertensive llxdvrcu96/22/2014 Overview (11/21/2022): Last Assessment & Plan: Resume home medications as ordered Follow up after discharged with PCP Labetalol PRN for SBP> 160 Monitor VS as ordered Last Assessment & Plan: Patient with history of hypertension. Blood pressure at this time 132/62. Plan: ?? Continue medications as prescribed. Disorder of lipid mwmftpptup55/27/3545Ycjidwlkg87/14/2014Chest pain08/30/2013 Coronary nbcsdxqyymlfljh98/03/2014Mixed iyvwmudgnceuzf86/03/2014Dyspnea 08/30/2013Preinfarction /03/2014vascular necrosis of bone of hip 09/04/2011 Overview (11/21/2022): Right hip Herpes txrzsu0909/04/2011Pain of left lower tkplkelxm24/08/2012 Overview (11/21/2022): Last Assessment & Plan: -Presented [facility] 09/04/2018 as a transfer from [place] for second opinion regarding left lower extremity [...] in pain -Reports pain is uncontrolled with PINMAKER Dilaudid pump, and pain does not decrease [...] Fernandez RN -Please call with questions Prostate ycuifv6309/04/2011Chronic ischemic heart Impotence of organic hyvama00enign essential hypertension 07/04/2008 Overview (04/22/2024): Last Assessment [...] * ChemicalLifetime DoseAutomatic EntryManual EntryFluoro Time18.04 minutes0 jkazcdk18.04 minutesAir Kerma1,177.89 mGy0 mGy1,177.89 mGy
--- OUTSIDE RECORDS SUMMARY | 2025-06-18 13:01 | XMS_ITS ---
Author Organization [facility] Address [address] [place] [address] Care Team Providers Care Physiologist Name Role Phone Nikko Bird MD Unavailable Nikko Bird MD Primary Care Provider Elaine Saab LPN Unavailable 30 Day Monitoring Program Status:Closed (Closed) Start date:05/14/2025 Enrollment date:05/14/2025 End date:06/12/2025 Close reason:Actively enrolled in CCM Continued Care and Services Coordination
--- OUTSIDE RECORDS SUMMARY | 2025-06-18 13:02 | XMS_ITS | Encounter Summary ---
Author Organization [facility] Address [address] [place] [address] Care Team Providers Care Insolvency Consultant Name Role Phone Nikko Bird MD Unavailable Nikko Bird MD Primary Care Provider [phone] Elaine Saab LPN Unavailable Encounter Details DateTypeDepartmentCare Team (Latest Contact Info)Xatmpxknwgt78/14/2025amboo flowsheet [facility] [address] [facility] [address] [place] [address] Nikko Bird MD [address] [facility] [address] [place] [address] Social History Tobacco UseTypesPacks/DayYears UsedDateSmoking Tobacco: NeverSmokeless Tobacco: NeverAlcohol UseStandard Drinks/WeekCommentsNot Currently0 (1 standard drink = 0.6 oz pure alcohol)Coffee 1-2 cups per [id number] Health LiteracyAnswerDate RecordedHow often do you need to have someone help you when you read instructions, pamphlets, or other written material from your doctor or pharmacy? Bzrpcw1906/21/2024Humiliation, Afraid, Rape, and Kick questionnaireAnswerDate RecordedWithin the [...] heating?Not hard at all06/21/2024HQ-2AnswerDate RecordedPatient Health Questionnaire-2 Mocby767Finog[facility] [place] of Occupational Health - Occupational Stress QuestionnaireAnswerDate [...] homeless or living in a usp (including now)?No06/21/2024Sex and Gender InformationValueDate RecordedSex Assigned at BirthNot on fileLegal QquHonp5911/09/2022 7:18 PM EDTGender IdentityNot on fileSexual OrientationNot on filedocumented as of this encounter Functional Status * Over the past 2 weeks, how often have you been bothered by any of the following problems?QuestionAnswerDate of AssessmentAuthorLittle interest or pleasure in doing thingsNot at all06/10/2025 10:00 AM Lorraine Marks MA Feeling down, depressed, or hopelessNot at all06/10/2025 10:00 AM Lorraine Marks MAPatient Health Questionnaire-2 Mqqqt767 10:00 AM Lorraine Marks MA documented as of this encounter Plan of Treatment Not on file documented as of this encounter Visit Diagnoses Not on filedocumented in this encounter Additional Health Concerns AssessmentNoted TimePHQ-9 Depression Total Score: 9:00 AM EDT documented as of this encounter Care Teams Team MemberRelationshipSpecialtyStart DateEnd Date Nikko Bird MD [address] [facility] 110 [place] [address] PCP - Human08/28/17 Nikko Bird MD [address] [facility] 110 [place] [address] PCP - GeneralFamily Medicine03/09/23 Elaine Saab LPN [address] [facility] 110 [place] [address] 11/15/24documented as of this encounter
--- OUTSIDE RECORDS SUMMARY | 2025-06-18 13:02 | XMS_ITS | Encounter Summary ---
Author Organization [facility] Address [address] [place] [address] Care Team Providers Care Pickle Cutter Name Role Phone Nikko Bird MD Unavailable Nikko Bird MD Primary Care Provider [phone] Elaine Saab LPN Unavailable Encounter Details DateTypeDepartmentCare Team (Latest Contact Info)Leqgpghqoue71/14/2025Travel Social History Tobacco UseTypesPacks/DayYears UsedDateSmoking Tobacco: NeverSmokeless Tobacco: NeverAlcohol UseStandard Drinks/WeekCommentsNot Currently0 (1 standard drink = 0.6 oz pure alcohol)Coffee 1-2 cups per [id number] Health LiteracyAnswerDate RecordedHow often do you need to have someone help you when you read instructions, pamphlets, or other written material from your doctor or pharmacy? Byadao0306/21/2024Humiliation, Afraid, Rape, and Kick questionnaireAnswerDate RecordedWithin the [...] heating?Not hard at all06/21/2024HQ-2AnswerDate RecordedPatient Health Questionnaire-2 Aftja512Finhuntsman mental health institute [place] of Occupational Health - Occupational Stress QuestionnaireAnswerDate [...] InformationValueDate RecordedSex Assigned at BirthNot on fileLegal GbfKpla3311/09/2022 7:18 PM EDTGender IdentityNot on fileSexual OrientationNot on filedocumented as of this encounter Functional Status * Over the past 2 weeks, how often have you been bothered by any of the following problems?QuestionAnswerDate of AssessmentAuthorLittle interest or pleasure in doing thingsNot at all06/10/2025 10:00 AM Lorraine Marks MA Feeling down, depressed, or hopelessNot at all06/10/2025 10:00 AM Lorraine Marks [facility] Questionnaire-2 Vngmn237 10:00 AM Lorraine Marks MA documented as of this encounter Plan of Treatment Not on file documented as of this encounter Visit Diagnoses Not on filedocumented in this encounter Additional Health Concerns AssessmentNoted TimePHQ-9 Depression Total Score: 9:00 AM EDT documented as of this encounter Care Teams Team MemberRelationshipSpecialtyStart DateEnd Date Nikko Bird MD [address] [facility] 110 [place] [address] PCP - [facility]08/28/17 Nikko Bird MD [address] [facility] 110 [place] [address] [facility] - [facility]/09/23 Elaine Saab LPN [address] [facility] 110 [place] [address] 11/15/24documented as of this encounter
--- OUTSIDE RECORDS SUMMARY | 2025-06-18 13:02 | XMS_ITS | Encounter Summary ---
Author Organization [facility] Address [address] [place] [address] Care Team Providers Care Blister Pack Operator Name Role Phone Nikko Bird MD Unavailable Nikko Bird MD Primary Care Provider [phone] Elaine Saab LPN Unavailable Encounter Details DateTypeDepartmentCare Team (Latest Contact Info)Wyokqxyvkcc98/16/2025bstract [facility] [address] [facility] [address] [place] [address] Nikko Bird MD [address] [facility] [address] [place] [address] Social History Tobacco UseTypesPacks/DayYears UsedDateSmoking Tobacco: NeverSmokeless Tobacco: NeverAlcohol UseStandard Drinks/WeekCommentsNot Currently0 (1 standard drink = 0.6 oz pure alcohol)Coffee 1-2 cups per [id number] Health LiteracyAnswerDate RecordedHow often do you need to have someone help you when you read instructions, pamphlets, or other written material from your doctor or pharmacy? Ycamav1606/21/2024Humiliation, Afraid, Rape, and Kick questionnaireAnswerDate RecordedWithin the [...] heating?Not hard at all06/21/2024HQ-2AnswerDate RecordedPatient Health Questionnaire-2 Bayqz041Fingunnison valley hospital [place] of Occupational Health - Occupational Stress QuestionnaireAnswerDate [...] InformationValueDate RecordedSex Assigned at BirthNot on fileLegal JbhQzvr1611/09/2022 7:18 PM EDTGender IdentityNot on fileSexual OrientationNot on filedocumented as of this encounter Plan of Treatment Not on file documented as of this encounter Visit Diagnoses Not on filedocumented in this encounter Additional Health Concerns AssessmentNoted TimePHQ-9 Depression Total Score: 9:00 AM EDT documented as of this encounter Care Teams Team MemberRelationshipSpecialtyStart DateEnd Date Nikko Bird MD [address] [facility] [address] [place] [address] PCP - [employer]1 Nikko Bird MD [address] [facility] [address] [place] [address] PCP - GeneralFamily Medicine03/09/23 Elaine Saab LPN [address] [facility] [address] [place] [address] 11/15/24documented as of this encounter
--- OUTSIDE RECORDS SUMMARY | 2025-06-18 13:02 | XMS_ITS | Encounter Summary ---
Author Organization [facility] Address [address] [place] [address] Care Team Providers Care Building Maintenance Repairer Name Role Phone Nikko Bird MD Unavailable Nikko Bird MD Primary Care Provider [phone] Elaine Saab LPN Unavailable Encounter Details DateTypeDepartmentCare Team (Latest Contact Info)Oziaegwdqbg90/15/2025Patient Outreach [facility] [address] [place] [phone] Elaine Saab LPN [address] [facility] [address] [place] [address] Social History Tobacco UseTypesPacks/DayYears UsedDateSmoking Tobacco: NeverSmokeless Tobacco: NeverAlcohol UseStandard Drinks/WeekCommentsNot Currently0 (1 standard drink = 0.6 oz pure alcohol)Coffee 1-2 cups per [id number] Health LiteracyAnswerDate RecordedHow often do you need to have someone help you when you read instructions, pamphlets, or other written material from your doctor or pharmacy? Bzskxj2306/21/2024Humiliation, Afraid, Rape, and Kick questionnaireAnswerDate RecordedWithin the [...] heating?Not hard at all06/21/2024HQ-2AnswerDate RecordedPatient Health Questionnaire-2 Uaemo289Finmountainstar healthcare [place] of Occupational Health - Occupational Stress QuestionnaireAnswerDate [...] homeless or living in a halfway (including now)?No06/21/2024Sex and Gender InformationValueDate RecordedSex Assigned at BirthNot on fileLegal VrmYzkw0711/09/2022 7:18 PM EDTGender IdentityNot on fileSexual OrientationNot on filedocumented as of this encounter Progress Notes * Elaine Saab LPN - 06/11/2025 12:49 PM EDT Spoke with pt for monitoring. Pt states he is doing ok. Denies any needs or concerns at this time. Flowsheet Row Patient Outreach from 06/11/2025 in [facility] with Elaine Saab LPN Week Number Call [...] MemberRelationshipSpecialtyStart DateEnd Date Nikko Bird MD [address] [facility] 110 [place] [address] PCP - Human08/28/17 Nikko Bird MD [address] [address] [facility]03/09/23 Elaine Saab LPN [address] [address] 11/15/24documented as of this encounter
--- OUTSIDE RECORDS SUMMARY | 2025-06-18 13:03 | XMS_ITS | Data Portability ---
Author Organization [place] [facility] Address [address] [place] [place] [address] Assessment No assessment recorded. Plan of Treatment [...] ICD10 Code Diagnosis IMO Codes Diagnosis Note [id number] Kamran Franco MD [address] [place] [address] 02/23/2018 10:18:42 02/25/2018 15:34:11 Health Concerns Section Related Observation LastModified by Organization Geno nicole LastModified Time None Recorded Concern Status LastModified by Organization Details LastModified Time None Recorded Advance Directives Directive None Recorded Payers Insurance Date Sequence Insurance Name Policy Number Policy Max Covered Member ID Max Member ID Guarantor Name 02/23/2018 1 *SELF PAY*
--- OUTSIDE RECORDS SUMMARY | 2025-06-18 13:03 | XMS_ITS | Encounter Summary ---
Author Organization [facility] Address [address] [place] [address] Care Team Providers Care Substance Abuse Nurse Name Role Phone Nikko Bird MD Unavailable Nikko Bird MD Primary Care Provider [phone] Elaine aSab LPN Unavailable Encounter Details DateTypeDepartmentCare Team (Latest Contact Info)Glfbodrrtqa04/16/2025bstract [facility] [address] [place] [address] Nikko Bird MD [address] [place] [address] Social History Tobacco UseTypesPacks/DayYears UsedDateSmoking Tobacco: NeverSmokeless Tobacco: NeverAlcohol UseStandard Drinks/WeekCommentsNot Currently0 (1 standard drink = 0.6 oz pure alcohol)Coffee 1-2 cups per [id number] Health LiteracyAnswerDate RecordedHow often do you need to have someone help you when you read instructions, pamphlets, or other written material from your doctor or pharmacy? Mxasye9006/21/2024Humiliation, Afraid, Rape, and Kick questionnaireAnswerDate RecordedWithin the [...] heating?Not hard at all06/21/2024HQ-2AnswerDate RecordedPatient Health Questionnaire-2 Rumze329Finlifepoint hospitals [place] of Occupational Health - Occupational Stress QuestionnaireAnswerDate [...] homeless or living in a retirement (including now)?No06/21/2024Sex and Gender InformationValueDate RecordedSex Assigned at BirthNot on fileLegal WbdBtwc7311/09/2022 7:18 PM EDTGender IdentityNot on fileSexual OrientationNot on filedocumented as of this encounter Plan of Treatment Not on file documented as of this encounter Visit Diagnoses Not on filedocumented in this encounter Additional Health Concerns AssessmentNoted TimePHQ-9 Depression Total Score: 9:00 AM EDT documented as of this encounter Care Teams Team MemberRelationshipSpecialtyStart DateEnd Date Nikko Bird MD [address] [facility] [address] [place] [address] PCP - Hum[employer]1 Nikko Bird MD [address] [facility] [address] [place] [address] PCP - GeneralFamily Medicine03/09/23 Elaine Saab LPN [address] [facility] [address] [place] [address] 11/15/24documented as of this encounter
--- OUTSIDE RECORDS SUMMARY | 2025-06-18 13:03 | XMS_ITS | Clinical Summary ---
Author Organization [facility] Address [address], [address] [place] [address] Care Team Providers Care Yarder Name Role Phone Nikko Bird MD Primary Care Provider [phone] Allergies No known active allergies Medications MedicationSigDispense [...] DateDiagnosed DateChest pain in adult05/13/2024rteriosclerosis of coronary aqincr4705/13/2024 Overview (05/13/2024): Dr. Cee [place], saw for clearance Triple bypass, 2017 [facility] Secondary hypercoagulable state4Paroxysmal atrial fibrillation 4Chronic kidney disease due to orrnqfsesacd77/13/2023PVD (peripheral vascular disease) with vwvxcyvqqmcw36/13/2023 Overview (05/13/2024): Last Assessment & Plan: Patient is complaining of worsening symptoms and has had 2 Vascular surgeons Coronary artery disease involving coronary bypass graft of [place] heart without angina pefennbs46/09/2019 Overview (05/13/2024): Last Assessment & Plan: Patient with remote coronary artery bypass grafting to 3 vessels. Patient denies chest pain at thistime. Peripheral arterial nipcrsf6308/10/2018 Overview (05/13/2024): Last Assessment & Plan: S/P [...] to be reduced (0.5) Atherosclerosis of coronary xxcyqf7408/30/2013enign essential hypertension 07/04/2008 Overview (05/13/2024): Last Assessment [...] (1 standard drink = 0.6 oz pure alcohol)[facility] UtilitiesAnswerDate RecordedIn the past 12 [...] or living in a care home (including now)?No05/13/2024 Food InsecurityAnswerDate RecordedWithin the past 12 months, you worried that your food would run out before you got the money to buymore.Within the past 12 months, the food you bought just didn't last and you didn't have money to get more.Interpersonal Safety Domain Source: IP Abuse ScreeningAnswerDate RecordedPhysical azrbjQfpbxb24/16/2024Verbal abuseDenies 05/13/2024Emotional udcqwEdqctm76/16/2024Financial fiveiCphhjw92/16/2024Sexual keoqxJihfwf97/16/2024Sex and Gender InformationValueDate RecordedSex Assigned at BirthNot on fileLegal PckLrro5410/07/2012 2:47 PM ESTGender IdentityNot on file Sexual OrientationNot on file Last Filed Vital Signs Vital SignReadingTime TakenCommentsBlood Uvwurtrd007/54005/14/2024 8:46 AM EDT Ohiyc948105/14/2024 6:45 AM KQTYbgwyrlxcvc70.2 ??C (97.2 ??F)05/14/2024 6:45 AM EDTRespiratory Berz127705/14/2024 6:45 AM EDTOxygen Idsaxtwgru50%05/14/2024 6:45 AM EDTInhaled Oxygen Concentration--Sqlyii056.5 kg (236 lb 15.9 oz)05/14/2024 5:30 AM OCPHcnkrq510 cm (6' 2.02 )05/13/2024 10:33 AM EDTBody Mass Index30.42 05/13/2024 10:33 AM EDT Plan of Treatment Health MaintenanceDue DateLast DoneCommentsDepression Omhukc971Prostate Specific Antigen (PSA) Screening or Swlgkjtphb32/09/1979Shingles vaccine (1 of 2)1989Respiratory Syncytial Virus (RSV) or age 60 yrs+ (1 - 1- dose 75+ series)2014nnual Wellness Visit (Medicare Advantage)08/28/2024 Flu vaccine (#1)510/05/2023, 05/31/2022, 06/21/2021, Additional history existsCOVID-19 Vaccine (2024- season)501/, 10/28/2020, 7217Oxvdin79/17/367209/4DTaP/Tdap/Td vaccine (2 - Td or Tdap) /10/2019Pneumococcal 50+ years LnihazsYwajkuzlh98/11/2021, 05/28/2020, 05/18/2015Hepatitis A vaccineAged OutNo longer eligible [...] AM EDT)ComponentValueRef RangeTest MethodAnalysis TimePerformed AtPathologist SignatureCholesterol, Sauea7376 - 199 mg/dL 05/14/2024 6:13 AM EDTMERCY LABORATORIESComment: Cholesterol Guidelines: <200 Desirable 200-240 ??Borderline >240 Undesirable HDL41>40 mg/dL05/14/2024 6:13 AM EDTMERCY LABORATORIESComment: HDL Guidelines: <40 Undesirable 40-59 ?Borderline >59 Desirable LDL Ladlboutwwg093 - 100 mg/dL05/14/2024 6:13 AM EDTMERCY LABORATORIESComment: LDL Guidelines: <100 Desirable 100-129 ?? Near to/above Desirable 130-159 ?? Borderline >159 Undesirable Direct (measured) LDL and calculated LDL are not interchangeable tests. Chol/HDL Ratio3. 6:13 AM EDTMERCY MQHNIYVVZMJMUvcgjrbvklnzf09<150 mg/dL05/14/2024 6:13 AM EDTMERCY LABORATORIESComment: Triglyceride Guidelines: <150 Desirable 150-199 ??Borderline 200-499 ??High >499 Very high Based on AHA Guidelines for fasting triglyceride, May 2012. TIQL39md/dL05/14/2024 6:13 AM EDTMERCY LABORATORIESSpecimen (Source)Anatomical Location / LateralityCollection Method / VolumeCollection TimeReceived TimeBlood BLOOD SPECIMEN / Ehthmdy7905/14/2024 6:13 AM EDT05/14/2024 6:29 AM EDT Narrative Authorizing ProviderResult TypeResult StatusDanica Rama Merritt MERCHANT SEAMAN - CNPCHEMISTRY ORDERABLESFinal ResultPerforming OrganizationAddressCity/State/ZIP CodePhone Number [facility] [address] [place] [address], [facility] [phone] [facility] [address] [place], [place] [address] [phone] from Last 3 Months or Most Recently Relevant to Health Maintenance Insurance Advance Directives * Full Code (Latest Code Status on File) Date ActivatedDate InactivatedComments05/13/2024 1:14 AM05/14/2024 5:07 PM NameRelationshipHealthcare Agent RelationshipCommunicationJudy IsaacChildPrimary Decision Maker* Care Teams Team MemberRelationshipSpecialtyStart DateEnd Date Nikko Bird MD PCP - Xfmvjqm60/19/13
--- OUTSIDE RECORDS SUMMARY | 2025-06-18 13:08 | XMS_ITS | CCD ---
Author Organization [facility] [employer]ini[employer] Care Team Providers Care Instructor [employer] Name Role Phone ELTAHAWY, EHAB A Unavailable Unavailable ELTAHAWY, EHAB A Unavailable Unavailable FLASH LOVELACE Unavailable Unavailable YANIRA CEE AM Unavailable Unavailable RIEGO, FILMORE A. Unavailable Unavailable RIEGO, FILMORE A. Unavailable Unavailable Flash Lovelace Primary Care Provider [phone] FLYNN MANN Attending Unavailabl e FLYNN MANN Referring Unavailabl e FLASH LOVELACE Primary Care Unavailable FLYNN MANN Admitting Unavailabl e [facility] Consulting Monisha MURO, SANTOSH YOUSIF [...] Unavailable Flash Lovelace MD Primary Care Provider [phone] Cristian Beaver Unavailable MD Flash Lovelace Primary Care Provider [phone] MD Cristian Beaver Attending Provider Flash Lovelace MD Primary Care Provider [phone] Flash Lovelace MD Primary Care Provider FLASH [...] Provider SCAR ORTEGA Referring Unavailable FLASH LOVELACE [facility] Care Unavailable SCAR ORTEGA Attending Unavailable FLASH LOVELACE [facility] Unavailable SELF, SELF Referring Unavailable SCAR ORTEGA Attending Unavailable MD Flash Lovelace Primary Care Provider MD Cristian Beaver Attending Provider [phone] MD Eliezer Juarez V Attending Provider MD Duke Dunbar Referring Provider BRENNA MOSQUERA Attending Unavailable FLASH LOVELACE Primary Care Unavailable GISEL MANN Admitting Unavailable ARTURO HARPER Consulting Unavailable JUAN EARL Attending Unavailable Flash Lovelace MD Unavailable Flash Lovelace MD Primary Care Provider [phone] Monday FINANCE CLERK, Mary Unavailable Flash Lovelace MD Primary Care Provider [phone] Cathy LIGHT, Lorraine Unavailable Saab FINANCE CLERK, Elaine Unavailable Unavailable MOUKARBJAYDEN, ELIEZER Admitting Unavailable MOUKARBJAYDEN, ELIEZER Attending Unavailable RUSSEL VALLEJO Attending Unavailable MOUKARBJAYDEN, ELIEZER Attending Unavailable MOUKARBEL, ELIEZER Attending Unavailable RUSSEL VALLEJO Attending Unavailable Saab FINANCE CLERK, Elaine Unavailable [place] DIAZ, Flash Arteaga Primary [...] Care Unavailable Cristian Beaver MD Other Provider Migdalia DIAZ, Beena Rome Attending Provider [phone] Muna Greene DO Emergency Provider Adiel Mccollum MD Admit Provider Adiel Mccollum MD Attending Provider [phone] Muna Greene DO Emergency Provider [phone] Veda DIAZ, Adiel Arteaga Admit Provider [phone] Milvia Vang APRN Other Provider Richie Woodward MD Other Provider Jhonny DIAZ, Jesse Morris Other Provider Randall Valdez MD Other Provider Ramana Gonzalez DO Other Provider Sharad DIAZ, Joyce Other Provider Misael Quinn MD Other Provider Conrad DIAZ, Yudelka Ontiveros Attending Provider [phone] Yudelka Martines MD Other Provider [phone] Ben Reddy DO Other Provider [phone] [place], RUGEN M Primary Care Unavailable WALKERMOHSEN [...] VOSS Attending Unavailable MOHSEN SARABIA Consulting Unavailable [place] Flash DIAZ Primary Care Provider RAFAELA GARCIA Attending Unavailable CONSULT, PULMONOLOGY Consulting Unavailable [place], RUGEN Primary Care Unavailable SYSTEM, PROVIDER NOT IN Referring Unavaila VIVIENNE Matute Admitting Unavailable Cristian Beaver Admitting Unavailable Cristian Beaver Attending Unavailable [place], Rugen M Primary Care Unavailable Ben Reddy Attending Unavailable Adiel Mccollum Admitting Unavailable Milvia Vang Consulting Unavailable [place], Rugen M Primary Care Unavailable Richie Woodward Consulting Unavaila Jesse Juan Consulting Unavailable Randall Valdez Consulting Unavailable Ramana Gonzalez Consulting Unavailable [place], Gualbertom Consulting Unavailable Misael Quinn Consulting Unavailable Yudelka Martines Consulting Unavaila Cristian Khanna Admitting Unavailable Cristian Beaver Attending Unavailable [place], Rugen M Primary Care Unavailable Cristian Beaver [...] Allergen(s)Allergy TypeDate of OnsetReaction(s) FacilityDoxycycline (2 sources)DoxycyclineDrug Njrucrp93-09-0860FiwsDjorgi (1 source)73888,00; Translations: [03641,00]Propensity to adverse reactions (disorder)01[facility]32[facility]129[facility] (11 sources)oxyCODONE; Translations: [oxycodone]Drug Nysjkle52-21-5289 Anaphylaxis, Anaphylaxis (disorder)[facility] (20 sources)Doxycycline; Translations: [DOXYCYCLINE]Drug Fagylhz42-07-9487 UnknownOhioHealth (20 sources)gabapentin; Translations: [GABAPENTIN]Drug Hetemqt84-64-8724ZL IntoleranceOhioHealth (10 sources)tiZANidine; Translations: [tizanidine]Drug Bgdwfcd26-72-0121ZynowhtgAdena [facility] (1 source)gabapentinDrug Bbaeqox56-61-4184MmxfhcabyF[facility] Medications Current Medications MedicationDrug Class(es)DatesSig (Normalized)Sig (Original)acetaminophen 325 mg / oxyCODONE hydrochloride 5 mg oral tablet (20 sources)Opioid AgonistStart: 05-09-2025 End: 61-51-0837dpuh 1 tablet by mouth every eight hours as needed1 tablet, Oral, EVERY 8 HOURS NEEDED, Starting on Mon05/09/25 at 0434, Until Mon05/13/25 at 1552, Severe Pain, Maximum dose of acetaminophen is 4000 mg from all sources in 24 hours.Start: 04-03-2025 End: 55-01-0506fwqh 1 tablet by mouth every six hours for painoxyCODONE- acetaminophen (Percocet) 5-325 MG tablet Indications: PVD (peripheral vascular disease) with claudication Take 1 tablet by mouth every 6 (six) hours if needed for severe pain or moderate pain 120 tablet 05/29/2025 06/28/2025 ActiveStart: 82-77-9455eixp 1 tablet by mouth every six hours for painoxyCODONE-acetaminophen (Percocet) 5-325 MG tablet Indications: PVD (peripheral vascular disease) with claudication Take 1 tablet by mouth every 6 (six) hours if needed for severe pain or moderate pain 15 tablet 03/31/2025 ActiveStart: 95-48-8975xevo 1 tablet by mouth every six hours for painoxyCODONE-acetaminophen (Percocet) 5-325 MG tablet Indications: PVD (peripheral vascular disease) with claudication Take 1 tablet by mouth every 6 (six) hours if needed for severe pain or moderate pain 15 tablet 03/31/2025 ActiveStart: 11-04-2022 End: 20-79-0346dpvk 1 tablet by mouth every four hours as neededoxyCODONE- acetaminophen (PERCOCET) 5-325 mg per tablet 1 tabletStart: 77-34-4465lswm 1 tablet by mouth every four hours for painPercocet 2.5/325 oral tablet 1 tab(s), Oral, q4hr for pain, Refill(s) 0 Start Date: 10/05/21 Status: OrderedStart: 10-12-2018 End: 46-48-0093plzt 1 tablet by mouth every four hours as needed, then take 7 tablets by mouth as neededoxyCODONE-acetaminophen (PERCOCET) 5-325 mg per tablet Indications: Acute post-operative pain Take 1 (one) tablet by mouth every 4 (four) hours as needed (december) (Days supply per fill: 7) . 20 tablet 0 10/12/2018 10/19/2018 ActiveStart: 10-05-2018 End: 73-75-5541rply 1 tablet by mouth every twenty-four hours as needed1 tablet, Oral, Once as needed, Pain, Starting 10/08/18 at 0835, For 1 dose, PACU (only) While in PACU when tolerating orals. Use oral route first, if tolerated.Start: 05-12-2017 End: 80-58-9832nmvt 1 tablet by mouth every six hours as needed for painStart: 07-26-6223edjf 1 tablet by mouth every four to six hours as needed for pain Oxycodone-Acetaminophen (Percocet) 5-325 mg Tablet Active 1 TAB PO EVERY 4-6 HOURS as needed for Pain May 12, 2017 12:00am Complies with drug therapy oxyCODONE-Acetaminophen 5-325 MG Oral for 10 Days Activealbuterol 0.83 mg/ml inhalation solution (20 sources)beta2-Adrenergic AgonistStart: 11-98-4763ydha 2.5 mg by inhalation four times dailyStart: 03-14-2025 End: 95-72-6008Bwhzc: 16-69-9545gqtv 1 puff(s) by inhalation every four to six hours as needed for wheezingStart: 01-30-2024 End: 11-80-9968tlgp 1 puff(s) by inhalation every four hours for wheezing albuterol HFA 90 mcg/act inhaler Indications: Sinusitis, unspecified chronicity, unspecified location Inhale 1 puff every 4 (four) hours if needed for wheezing or shortness of breath 76.5 Unspecified3 11/26/2024 ActiveStart: 04-15-2022 End: 83-01-9483vfff 2 puff(s) by inhalation every four hours as needed for wheezing2 puff, Inhalation, Every 4 hours PRN, wheezing, shortness of breath, Starting on Mon04/15/22 at 0101 SPACER REQUIRED FOR ADMINISTRATIONStart: 02-25-2022 End: 38-71-8878mybu 2 puff(s) by inhalation every four hours as needed for cough albuterol 90 mcg/actuation inhaler Indications: Chronic obstructive pulmonary disease, unspecified COPD type (HCC) Inhale 2 (two) puffs every 4 (four) hours as needed for wheezing, shortness of breath or cough . 54 g 3 08/30/2022 Active Start: 01-21-2022 End: 20-66-8909jqtg 2.5 mg by inhalation every six hours [...] Mon05/09/25 at 0800, Until DiscontinuedStart: 02-03-2023 End: 33-84-5778vmyrskcfuaa-albuterol (Duo-Neb) 0.5-2.5 mg/3 mL nebulizer solution Indications: Chronic bronchitis,unspecified chronic bronchitis type (HCC) , COPD exacerbation (HCC) Take 3 mL by nebulization in the morning and 3 mL in the evening and 3 mL before bedtime. 270 mL 2 05/14/2025 08/12/2025 Active Start: 11-03-2022 End: 94-21-8980kqrs 3 mL by inhalation every six hours3 mL, Inhalation, Every 6 hours scheduled (RT), First dose on Mon11/03/22 at 2230Start: 11-03-2022 End: 53-22-5898whnj 3 mL by inhalation every four hours as needed3 mL, Inhalation, Every 4 hours PRN (RT), shortness of breath, Starting on Mon11/03/22 at 2228Start: 11-03-2022 End: 85-49-5869zgufzkgxljz-albuteroL (DUO-NEB) 0.5-2.5 mg/3 ml nebulizer Take 3 mL by nebulization 3 (three) timesa day . 11/03/2022 03/14/2025 Discontinued (Therapy completed)Start: 69-21-2292ztsejibmbzq-albuterol (DUONEB) nebulizer solution 1 ampuleamLODIPine 5 mg oral tablet (14 sources)Dihydropyridine Calcium Channel BlockerStart: 04-24-2024 End: 10-32-9850nvvu 1 tablet by mouth in the morningamLODIPine (Norvasc) 5 MG tablet Take 5 mg by mouth in the morning. 04/24/2024 05/21/2024 Discontinued (Other)Start: 10-12-2023 End: 84-66-9738tfnn 1 tablet by mouth once dailyAmlodipine 10 mg tablet Discontinued 10 MG PO Daily October 12, 2023 1:00am May 02, 2025 4 :14pm End: 31-03-1129zlIZRCJgpl (NORVASC) 5 MG tabletamoxicillin 500 mg / clavulanate 125 mg oral tablet (20 sources)Penicillin-class AntibacterialStart: 98-62-8294dtgwubjtgrd- clavulanate (AUGMENTIN) 500-125 mg per tablet 04/16/2025 ActiveStart: 04-16-2025 End: 12-14-3934cpwh 1 tablet by mouth in the morningamoxicillin-clavulanate (Augmentin) 500-125 MG tablet Take 500 mg by mouth in the morning and 500 mg before bedtime. 04/16/2025 05/20/2025 Discontinued (Therapy completed)Start: 04-10-2025 End: 04-61-5286uehg 1 tablet by mouth in the morningamoxicillin-clavulanate (Augmentin) 875-125 MG tablet Indications: Ischemic toe ulcer, right, with 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) Take 1 tablet (875 mg) by mouth in the morning and 1 tablet (875 mg) in the evening. Take with meals. Do all this for 7 days. 14 tablet 04/10/2025 04/17/2025 ActiveStart: 10-22-2018 End: 45-43-7542kkip 1 tablet by mouth every twelve hoursamoxicillin-clavulanate (AUGMENTIN) 875-125 mg per tablet Take 1 tablet by mouth every 12 (twelve) hours . 0 10/22/2018 03/13/2019 Discontinued (Therapy completed) End: 47-62-0156pbtl 1 tablet by mouth every twelve hoursAmoxicillin-clavulanate 500-125 MG tablet Take 1 tablet by mouth every 12 hours. 05/13/2025 Discontinued (Stop Taking at Discharge)azelastine hydrochloride 0.137 mg/actuat metered dose nasal spray (20 sources)Histamine-1 Receptor AntagonistStart: 86-82-6762mujl 1 spray(s) nasal route once daily as neededazelastine 0.1 % Solution nasal spray 1 spray by Nasal route daily as needed. Use in each nostril as directed 05/13/2025 Active Start: 03-15-2025 End: spray, Each Nare, Daily, First dose on 03/15/25 at 0900 Start: 95-45-9521elln 1 spray(s) nasal route twice daily as neededStart: 11-04-2024 End: 75-19-3955roly 1 spray(s) nasal route in the morningAzelastine HCl 137 MCG/SPRAY solution Indications: Seasonal allergic rhinitis due to pollen Administer 1 spray into affected nostril(s) in the morning and 1 spray before bedtime. Do all this for 14 days. 90 mL 3 11/04/2024 05/20/2025 Discontinued (Other)Start: 05-21-2024 End: 69-52-8336trua 1 spray(s) nasal route in the morningAzelastine HCl 137 MCG/SPRAY solution Indications: Seasonal allergic rhinitis due to pollen Administer 1 spray into affected nostril(s) in the morning and 1 spray before bedtime. Do all this for 14 days. 30 mL 08/12/2024 Active End: 99-60-4706azli 1 spray(s) nasal route twice dailyazelastine 0.1 % Solution nasal spray 1 spray by Nasal route 2 times daily. Use in each nostril as d irected 05/13/2025 Discontinuedazithromycin 250 mg oral tablet (7 sources)Macrolide AntimicrobialStart: 04-29-2025 End: 38-47-4251dolt 2 tablets by mouth once daily, then take 1 tablet by mouth once dailyazithromycin (Zithromax) 250 MG tablet Indications: Acute non- recurrent sinusitis, unspecified location Take 2 tablets (500 mg) by mouth Daily for 1 day, THEN 1 tablet (250 mg) Daily for 4 days. 6 tablet 04/29/2025 05/04/2025 ActiveStart: 06-17-2024 End: 59-98-0186ghxi 1 tablet by mouth once dailyazithromycin (Zithromax) 250 MG tablet Indications: Upper respiratory tract infection, unspecified type Take 1 tablet (250 mg) by mouth Daily for 5 days 6 tablet 06/17/2024 06/22/2024 Active benzonatate 100 mg oral capsule (20 sources)Non-narcotic AntitussiveStart: 68-24-3733wbwkufqkfft (Tessalon) 100 MG capsule Three times daily 05/08/2025 ActiveStart: 66-28-1581uabs 2 capsules by mouth three times dailyStart: 10-30-2022 End: 90-84-2068mgqlpsfpeep (TESSALON) capsule 100 mgStart: 10-30-2022 End: 15-90-8778tumvhbsiznm (TESSALON) capsule 100 mg End: 07-40-8181yhdx 1 capsule by mouth three times daily as needed for cough benzonatate (TESSALON) 100 MG capsule Take 100 mg by mouth 3 (three) times a day as needed for cough . 0 03/13/2019 Discontinued (Therapy completed)120 actuat budesonide 0.16 mg/actuat / formoterol fumarate 0.0048 mg/actuat / glycopyrrolate 0.009 mg/actuat metered dose inhaler (7 sources)Corticosteroid, beta2-Adrenergic AgonistStart: 86-79-5849dhmo 1 puff(s) by inhalation in the ttwtmzyYubovng-Hqdnigfurgp-Igkjjnigqv (Breztri Aerosphere) 160-9-4.8 MCG/ACT aerosol Indications: Pneumonia due to infectious organism, unspecified laterality, unspecified part of lung Inhale 1 puff in the morning and at noon 18 g 05/20/2025 Activeciprofloxacin 500 mg oral tablet (2 sources)Quinolone AntimicrobialStart: 01-09-2025 End: 19-44-1519skvu 0.5 tablet by mouth in the morningciprofloxacin (Cipro) 500 MG tablet Indications: Dysuria Take 0.5 tablets (250 mg) by mouth in the morning and 0.5 tablets (250 mg) before bedtime. Do all this for 5 days. 5 tablet 01/09/2025 01/14/2025 Activeciprofloxacin 3 mg/ml / dexamethasone 1 mg/ml otic suspension (2 sources)Corticosteroid, Quinolone AntimicrobialStart: 06-10-2025 End: 34-76-8263jfmwejfovgcmr-dexAMETHasone (CiproDEX) otic suspension Indications: Acute eczematoid otitis externaof right ear Administer 4 drops into affected ear(s) in the morning and 4 drops before bedtime. Do all this for 7 days. 7.5 mL 06/10/2025 06/17/2025 Activecollagenase 0.25 unt/mg topical ointment (20 sources)Collagen-specific EnzymeStart: 04-21-2025 End: 69-66-8604Acrbdk 250 UNIT/GM ointment Apply 1 application topically Daily 04/21/2025 ActiveStart: 03-87-2492SnvclL ointment 04/21/2025 Activedoxycycline hyclate 100 mg oral tablet (14 sources)Tetracycline-class DrugStart: 34-04-2406msob 1 tablet by mouth twice dailyStart: 01-17-2022 End: 98-73-0056yhau 1 capsule by mouth twice dailydoxycycline hyclate (VIBRAMYCIN) 100 MG capsule Take 100 mg by mouth 2 (two) times a day . 0 022 01/19/2022 DiscontinuedStart: 10-12-2018 End: 85-92-9153kauj 1 tablet by mouth twice dailydoxycycline hyclate (VIBRA- TABS) 100 MG tablet Take 1 (one) tablet (100 mg total) by mouth 2 (two) times a day for 10 days . 20 tablet 0 10/12/2018 10/22/2018 ActiveStart: 09-12-2018 End: 07-76-2041zksa 1 tablet by mouth twice dailydoxycycline hyclate (VIBRA- TABS) 100 MG tablet Take 1 (one) tablet (100 mg total) by mouth 2 (two) times a day for 10 days . 28 tablet 0 09/20/2018 09/30/2018 Activeergocalciferol 1.25 mg oral capsule (13 sources)Provitamin D2 Compound End: 18-23-4961nldthptgazgsit (Vitamin D-2) 1.25 MG (14546 UT) capsule Take 50,000 Units by mouth every 7 (seven) days. 05/21/2024 Discontinued (Other) End: 56-44-6948vlsf 1 capsule by mouth every weekergocalciferol (ERGOCALCIFEROL) 1,250 mcg (50,000 unit) capsule Take 1 (one) capsule (50,000 Units total) by mouth once a week . 0 08/09/2023 Discontinued (Discontinued by another clinician)furosemide 20 mg oral tablet (20 sources)Loop DiureticStart: 03-15-2025 End: 98-86-0882fulu 20 mg by mouth every other day20 mg, Oral, Every other day, First dose on 03/15/25 at 0900Start: 30-03-4013eoyd 1 tablet by mouth twice dailyStart: 11-03-2022 End: 88-70-8893wvsgxinozv (LASIX) injection 20 mgStart: 05-10-2017 End: 26-82-7601tyayntpvdi (Lasix) 20 MG tablet Indications: Benign essential hypertension TAKE 1 TABLET EVERY MORNING 90 tablet 3 10/14/2024 Oqspis40 hr guaiFENesin 600 mg extended release oral tablet (4 sources)Start: 05-08-2025 End: 88-57-7288dzshFWQxitc (Mucinex) 600 MG 12 hr tablet Twice daily 05/08/2025 05/20/2025 Discontinued (Other)24 hr isosorbide mononitrate 30 mg extended release oral tablet (3 sources)Nitrate VasodilatorStart: 05-14-2024 End: 75-73-8953xczk 1 tablet by mouth once dailyisosorbide mononitrate ER (Imdur) 30 MG 24 hr tablet Take 1 tablet by mouth Daily 05/14/2024 05/21/2024 Discontinued (Other)lanolin 0.157 mg/mg / menthol 0.0044 mg/mg / petrolatum 0.24 mg/mg / zinc oxide 0.206 mg/mg topicalointment (20 sources)Start: 56-11-2076Ctsbffe-Zinc Oxide (Calmoseptine) 0.44-20.6 % ointment Indications: 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HCC) Apply 1 Application topically every 6 (six) hours if needed (Barrier Cream) 100 g 3 06/10/2025 ActiveStart: 61-76-7250Cydatck-Zinc Oxide (Calmoseptine) 0.44-20.6 % ointment Indications: 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HCC) Apply 1 Application topically every 6 (six) hours if needed (Barrier Cream) 100 g 3 06/10/2025 ActiveStart: 04-26-2024 End: 08-17-2608Uprnfms-Zinc Oxide (Calmoseptine) 0.44-20.6 % ointment Indications: 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HCC) Apply 1 Application topically every 6 (six) hours if needed (Barrier Cream) 100 g 3 04/26/2024 06/10/2025 Discontinued (Reorder)Start: 06-27-2023 End: 17-64-8882Zxblmcudigwu 0.44-20.6 % ointment 06/27/2023 04/26/2024 Discontinued (Reorder)levoFLOXacin 500 mg oral tablet (10 sources)Quinolone AntimicrobialStart: 05-27-2025 End: 55-94-1793yiwp 1 tablet by mouth once dailylevoFLOXacin (Levaquin) 500 MG tablet Indications: Abscess of lower lobe of left lung with pneumonia (HCC) Take 1 tablet (500 mg) by mouth Daily for 14 days 14 tablet 05/27/2025 06/10/2025 ActiveStart: 11-09-2022 End: 72-37-9840rakf 1 tablet by mouth once dailylevoFLOXacin (LEVAQUIN) 750 MG tablet Take 1 (one) tablet (750 mg total) by mouth daily for 5 days Start: 11/09/22. 5 tablet 0 11/09/2022 11/14/2022 ActiveStart: 10-30-2022 End: 95-21-0373qdez 1 tablet by mouth once dailylevoFLOXacin (LEVAQUIN) 750 MG tablet Take 1 tablet by mouth daily for 5 days 5 tablet 0 /05/2023 Active End: 54-44-3764lgvhJSSUzdqa (LEVAQUIN) 500 MG tabletLisinopril (19 sources)Angiotensin Converting Enzyme InhibitorStart: 04-52-1235yzzpxcaecz Start Date: 07/03/19 Status: OrderedStart: 05-10-2017 End: 45-69-2663hfus 1 tablet by mouth once dailyLisinopril 10 mg Tablet Discontinued 10 MG PO Daily May 10, 2017 12:00am May 12, 2017 11:03am End: 35-09-3871tnlt 1 tablet by mouth once dailylisinopriL (PRINIVIL,ZESTRIL) 5 MG tablet Take 1 (one) tablet (5 mg total) by mouth daily . 0 08/09/2023 Discontinued (Discontinued by another clinician) End: 85-38-9914gbns 1 tablet by mouth once dailylisinopril (PRINIVIL,ZESTRIL) 40 MG tablet Take 40 mg by mouth daily . 0 10/09/2019 Discontinued (Therapy completed)menthol 0.0044 mg/mg / zinc oxide 0.206 mg/mg topical ointment (16 sources)Start: 45-21-7158Pierpzwtckyu 0.44-20.6 % Oint Apply 1 Application topically daily as needed . 06/27/2023 ActiveStart: 46-26-8637Iwptvfukopjx 0.44- 20.6 % Oint 06/27/2023 ActivemethylPREDNISolone 125 mg injection (12 sources)CorticosteroidStart: 09-65-6606awgxbjZXXOJPIbdnqs sodium (SOLU- MEDROL) injection 125 mgStart: 11-24-2021 End: 55-82-0892xkkxkiJQMJCVaybgto 4 MG Tab Therapy Pack tablet Take 1 tablet by mouth As directed. follow package directions 21 tablet 11/24/2021 05/09/2025 Discontinuedmetoprolol tartrate 50 mg oral tablet (20 sources)beta-Adrenergic BlockerStart: 01-19-2022 End: 16-34-4959bcxu 50 mg by mouth twice daily50 mg, Oral, 2 times daily, First dose on Mon01/19/22 at 0900Start: 09-05-2018 End: 20-14-8238crlj 50 mg by mouth once daily50 mg, Oral, Daily, First dose on Mon09/05/18 at 1700 DO NOT CRUSH OR CHEW.Start: 05-10-2017 End: 90-49-9721rjouuapobs tartrate (Lopressor) 50 MG tablet Indications: Benign essential hypertension TAKE 1 TABLET IN THE MORNING AND 1 TABLET BEFORE BEDTIME. 180 tablet 3 04/29/2025 ActiveStart: 05-10-2017 End: 58-79-8946nwpv 1 tablet by mouth in the morningmetoprolol tartrate (Lopressor) 50 MG tablet Indications: Benign essential hypertension Take 1 table t (50 mg) by mouth in the morning and 1 tablet (50 mg) before bedtime. 180 tablet 3 06/20/2024 06/20/2025 Active End: 03-43-8256nuyj 1 tablet by mouth twice dailymetoprolol succinate 50 MG PO tablet XL Take 1 tablet by mouth 2 times daily. 05/09/2025 Discontinued End: 24-97-7212nnei 1 tablet by mouth every twenty-four hoursmetoprolol succinate (TOPROL-XL) 50 MG 24 hr tablet Take 50 mg by mouth . 0 09/13/2018 Discontinuedmontelukast 10 mg oral tablet (20 sources)Leukotriene Receptor AntagonistStart: 03-21-2024 End: 49-55-2382kuzn 1 tablet by mouth at bedtimemontelukast (Singulair) 10 MG tablet Indications: Seasonal allergic rhinitis due to pollen Take 1 tablet (10 mg) by mouth at bedtime 30 tablet 11 03/21/2024 03/31/2025 Discontinued (Other) naloxone (NARCAN) 4 mg/actuation [facility] (6 sources)Start: 84-88-6485evoulksf (NARCAN) 4 mg/actuation [facility] Administer 1 spray into one nostril for known or suspected opioid overdose. If patient worsens or does not respond, may repeat in 2-3 minutes. . 2 each 03/21/2025 ActiveStart: 64-63-1004rrmsmcef (NARCAN) 4 mg/actuation [facility] Administer 1 spray into one nostril for known or suspected opioid overdose. If patient worsens or does not respond, may repeat in 2-3 minutes. . 2 each 03/21/2025nitroglycerin 0.4 mg sublingual tablet (20 sources)Nitrate VasodilatorStart: 12-07-2022 End: 14-00-0517wqpqaloukltru (Nitrostat) 0.4 MG SL tablet Indications: PVD (peripheral vascular disease) with claudication Place 1 tablet (0.4 mg) under the tongue every 5 (five) minutes if needed for chest pain 90tablet 1 03/31/2025 ActiveStart: 45-54-4154pvzfnBQDCGGEW (NITROSTAT) 0.[address] 1 tablet as needed by sublingual route. 12/07/2022ctiveStart: 01-19-2022 End: .4 mg, Sublingual, Every 5 min PRN, chest pain, Starting on Mon01/19/22 at 0335, For 3 doses Anginal pain, may repeat M7wnewvfm x3, then notify physician. DO NOT CRUSH OR CHEW.Start: 09-05-2018 End: 51-45-0701hjkaxINQUBMYB (NITROSTAT) SL tablet 0.4 mg End: 90-96-9187jfrzjRWOURHVB (NITROSTAT) 0.[address] under the tongue every 4 to 6 hours as needed . 0 01/21/2022 Discontinued (Stop Taking at Discharge)omeprazole 20 mg delayed release oral capsule (20 sources)Proton Pump InhibitorStart: 04-25-2022 End: 06-06-0797Hjoydcrzgo 40 mg Capsule,Delayed Release(Dr/Ec) Discontinued 20 MG PO Daily as needed for heartburnAugust 2021 12:00am May 02, 2025 4:14pmStart: 24-52-0522jzwl 20 mg by mouth once dailyOmeprazole Active 20 MG PO Daily April 24, 2022 11:00pmStart: 26-65-5409hdgw 1 capsule by mouth once dailyOmeprazole (Prilosec) 40 mg Capsule,Delayed Release(Dr/Ec) Active 40 MG PO Daily April 25, 2022 12:00amStart: 24-67-2640qfzsjotzyk (PriLOSEC) [address] capsule Indications: Heartburn TAKE 1 CAPSULE EVERY DAY 90 capsule Activeondansetron 4 mg oral tablet (20 sources)Serotonin-3 Receptor AntagonistStart: 04-21-2025 End: 04-64-4711xkqzxqflpzk (ZOFRAN) 4 MG tablet 04/21/2025 ActiveStart: 03-25-2025 End: 66-99-0962kiby 1 tablet by mouth every eight hours for nauseaondansetron ODT (Zofran-ODT) 4 MG disintegrating tablet Indications: Nausea and vomiting, unspecified vomiting type Take 1 tablet (4 mg) by mouth every 8 (eight) hours if needed for nausea or vomiting for up to 7 days 20 tablet 03/25/2025 04/01/2025 ActiveStart: 03-17-2025 End: 07-21-30658 mg, Intravenous, Every 15 min PRN, nausea, vomiting, Starting on 03/17/25 at 1601, For 2 doses, PACU (only), Do not give more than 2 doses. Administer first as needed for nausea/vomiting, or as directed by anesthesia Start: 03-14-2025 End: 54 mg, Intravenous, Once, On Mon03/14/25 at 1445, For 1 doseStart: 03-14-2025 End: 98-39-0492kqtj 4 mg intravenously every six hours as needed for nausea and vomiting4 mg, Intravenous, Every 6 hours PRN, nausea, vomiting, Starting on Mon03/14/25 at 1441Start: 06-06-2023 End: 54-52-2428qaikwwzpnhn (ZOFRAN) 4 MG tablet 06/06/2023 03/14/2025 Discontinued (Therapy completed)Start: 01-18-2022 End: 01-37-1789pzldislzshc (ZOFRAN) injection 4 mgStart: 10-08-2018 End: 82-21-3371vvinujybssx (ZOFRAN) injection 4 mgStart: 09-13-2018 End: 40-66-2962ecqq 1 tablet by mouth every eight hours as neededondansetron (ZOFRAN) 4 MG tablet Take 1 (one) tablet (4 mg total) by mouth every 8 (eight) hours asneeded for nausea . 20 tablet 0 09/13/2018 03/13/2019 Discontinued (Therapy completed)polyethylene glycol 3350 93605 mg powder for oral solution (20 sources)Osmotic LaxativeStart: 05-08-2025 End: 15-44-7420osuy 17 g by mouth in the morningpolyethylene glycol, PEG, 3350 (Miralax) 17 g packet Take 17 g by mouth in the morning. 05/08/2025 ActiveStart: 09-04-2011 End: 08-36-5008hqkjpbgwfgdp glycol (MIRALAX) 17 gram powder Take 17 (seventeen) g by mouth daily . 09/04/2011 ActiveStart: 09-04-2011 End: g, Oral, 2 TIMES DAILY, First dose on Mon05/11/25 at 0930, Until Discontinuedpovidone-iodine 100 mg/ml topical solution (2 sources)AntisepticStart: 09-13-2018 End: 16-60-0144bbpftred-iodine (BETADINE) 10 % external solution Apply topically as needed for wound care Apply daily to foot . 480 mL 0 09/13/2018 09/20/2018 ActivepredniSONE (20 sources)Start: 05-14-2025 End: 14-25-1422acejfrHUMY (DELTASONE) tablet 30 mgStart: 41-89-4011ugvlrtNFOI (Deltasone) 10 MG tablet 05/13/2025 ActiveStart: 05-13-2025 End: 34-56-0015kegp 3 tablets by mouth once daily, then take 2 tablets by mouth once daily, then take 1 tablet by mouth once dailypredniSONE 10 MG tablet Take 3 tablets by mouth daily for 4 days, THEN 2 tablets daily for 4 days, THEN 1 tablet daily for 4 days. 24 tablet 05/13/2025 05/25/2025 ActiveStart: 05-08-2025 take 3 tablets by mouth once dailyStart: 05-02-2025 End: 67-21-4948yfgg 2 tablets by mouth once dailyPrednisone 20 mg tablet Discontinued 40 MG PO Daily May 02, 2025 12:00am May 08, 2025 7:16pmStart: 18-20-4284jznyzdJLXD (Deltasone) 20 MG tablet 04/30/2025 Active Start: 05-10-2017 End: 65-02-1740tifc 2 mg by mouth once dailyPrednisone 10 mg Tablet Discontinued 2 MG PO Daily May 10, 2017 12:00am April 25, 2022 11:27amStart: 05-10-2017 End: 25-45-4048ibuo 2 mg by mouth once dailyPrednisone Discontinued 2 MG PO Daily May 09, 2017 11:00pm April 25, 2022 10:27am End: 96-64-9721piuwrkINIK (DELTASONE) 10 MG tabletrivaroxaban 2.5 mg oral tablet (20 sources)Factor Xa InhibitorStart: 04-25-2022 End: 28-08-8628etja 1 tablet by mouth once dailyRivaroxaban (Xarelto) 2.5 mg tablet Active 2.5 MG PO Daily April 25, 2022 12:00amStart: 11-27-2019 End: 68-45-7756tniikgvnzes (Xarelto) 2.5 MG tablet Indications: Paroxysmal atrial fibrillation (HCC) TAKE 1 TABLETTWICE DAILY 180 tablet 3 04/09/2025 ActiveStart: 01-81-2384Bcnfjep Start Date: 07/03/19 Status: OrderedStart: 08-09-2018 End: 17-14-2729ovfy 2 tablets by mouth once dailyXARELTO 15 mg Tab take 2 tablets by mouth once daily for 3 weeks 0 08/09/2018 09/13/2018 Discontinued Rivaroxaban 20 MG tablet Take 2.5 mg by mouth 2 times daily. Start in 22 days after the 15mg dose is completed 0 Active End: 70-99-0563mfbbtyhjivj (XARELTO) 20 mg Tab Take 20 mg by mouth . 0 01/19/2022 Discontinuedsulfamethoxazole 400 mg / trimethoprim 80 mg oral tablet (20 sources)Dihydrofolate Reductase Inhibitor Antibacterial, Sulfonamide AntimicrobialStart: 04-16-2025 End: 77-60-8238hjqzqrvtxxlbmtkt-trimethoprim (BACTRIM,SEPTRA) 400-80 mg per tablet 04/16/2025 ActiveStart: 04-08-2025 End: 57-65-8314uhyn 1 tablet by mouth once in the morning, then take 1 tablet by mouth once at bedtimesulfamethoxazole-trimethoprim (Bactrim DS) 800-160 MG per tablet Indications: Ischemic toe ulcer, right, with 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) Take 1 tablet by mouth in the morning and 1 tablet before bedtime. Do all this for 7 days. 14 tablet 04/08/2025 04/15/2025 ActiveStart: 01-29-2022 End: 13-49-9791mfhc 1 tablet by mouth twice dailysulfamethoxazole-trimethoprim (BACTRIM DS,SEPTRA DS) 800-160 mg per tablet Take 1 (one) tablet by mouth 2 (two) times a day for 3 days Start: 01/29/22. 6 tablet 0 01/29/2022 01/21/2022 Discontinued (Reorder)Start: 01-18-2022 End: 18-61-5289jxyl 1 tablet by mouth twice dailysulfamethoxazole-trimethoprim (BACTRIM DS,SEPTRA DS) 800-160 mg per tablet Take 1 tablet by mouth 2(two) times a day . 0 01/18/2022 04/15/2022 Discontinuedtake 1 tablet by mouth twice daily Sulfamethoxazole-trimethoprim 400-80 MG per tablet Take 1 tablet by mouth 2 times daily. Activetamsulosin hydrochloride 0.4 mg oral capsule (20 sources)alpha-Adrenergic BlockerStart: 24-47-3701keua 1 capsule by mouth once dailyTamsulosin HCl 0.4 MG capsule Take 1 capsule by mouth daily. 05/14/2025 ActiveStart: 42-82-7948iesp 1 capsule by mouth once dailyTamsulosin HCl 0.4 MG capsule Take 1 capsule by mouth daily. 05/14/2025 ActiveStart: 34-68-4884vcdx 1 capsule by mouth once dailyTamsulosin HCl 0.4 MG capsule Take 1 capsule by mouth daily. 05/14/2025Start: 03-31-2025 End: 81-87-7286hhxx 1 capsule by mouth every twenty-four hours in the morning tamsulosin (Flomax) 0.4 MG 24 hr capsule Indications: History of prostate cancer , Urinary hesitancy Take 1 capsule (0.4 mg) by mouth in the morning and 1 capsule (0.4 mg) before bedtime. 200 kyzbxmg9403/31/2025 07/09/2025 ActiveStart: 01-09-2025 End: 74-25-4005fiog 1 capsule by mouth once daily0.4 mg, [...] tablet (20 sources)gamma-Aminobutyric Acid-ergic AgonistStart: 03-14-2025 End: 57-91-9717yexh 10 mg by mouth once daily10 mg, Oral, Nightly, First dose on Mon03/14/25 at 2200Start: 09-30-2019 End: 45-50-2704jywdzyye (Ambien) 10 MG tablet Indications: Primary insomnia Take 1 tablet (10 mg) by mouth as needed at bedtime for sleep 30 tablet 5 02/13/2025 ActiveStart: 05-12-2017 End: 00-81-2109vrjn 5 mg by mouth at bedtime as needed for sleepZolpidem 10 mg Tablet Discontinued 5 MG PO Bedtime as needed for Sleep May 12, 2017 12:00amFebruary 2023 9:54amStart: 05-12-2017 End: 96-72-5375zscl 5 mg by mouth at bedtimeZolpidem Discontinued 5 MG PO Bedtime May 11, 2017 11:00pm October 12, 2023 8:54amtake 2 tablets by mouth at bedtime as needed for sleepzolpidem 5 MG tablet Take 2 tablets by mouth At bedtime as needed for Sleep. 0 Active Completed/Discontinued Medications MedicationDrug Class(es)DatesSig (Normalized)Sig (Original)acetaminophen 325 mg oral tablet (19 sources)Start: 05-09-2025 End: 80-67-9229khsx 1 tablet by mouth every six hours as pbzvaw649 mg, Oral, EVERY 6 HOURS NEEDED, Starting on Mon05/09/25 at 0221, Until Mon05/13/25 at 1552, Mild Pain, Oral temp > 100.4 F, Headaches, Alternate with ibuprofen if ordered, Maximum dose of acetaminophen is 4000 mg from all sources in 24 hours or 2000 mg from all sources in patients with cirrhosis in 24 hours.Start: 03-14-2025 End: 58-67-2340rshi 650 mg by mouth every four drwyf016 mg, Oral, Every 4 hours while awake, First dose on Mon03/14/25 at 1500Start: 04-15-2022 End: 05-89-7960wxlq 1 tablet by mouth every four hours as needed for pain and ytcablud178 mg, Oral, Every 4 hours PRN, mild pain, fever 100.4 F or greater, headaches, Starting on Mon04/15/22 at 0101Start: 01-19-2022 End: 52-99-8565slai 1 tablet by mouth every four hours as needed for pain and headacheacetaminophen (TYLENOL) tablet 650 mgStart: 01-18-2022 End: 90-76-8749vuuhllyhyjmlv (TYLENOL) tablet 975 mgStart: 07-15-2021 End: 31-64-5662fuku 2 tablets by mouth every four hours as neededacetaminophen 325 MG tablet Take 2 tablets by mouth every 4 hours as needed for Mild Pain. 50 tablet 1 07/15/2021 05/09/2025 Discontinued (Medication Reconciliation (suppress cancel msg))Start: 10-09-2018 End: 90-52-5369nllh 1 tablet by mouth every six hours as neededacetaminophen (TYLENOL) tablet 650 mgStart: 09-05-2018 End: 13-24-2176gjeu 1 tablet by mouth every four hours as wofzvv328 mg, Oral, Every 4 hours PRN, mild pain, fever 100.4 F or greater, headaches, Starting Mon09/05/18 at 1603alprostadil 0.5 mg urethral suppository (1 source)Prostaglandin Analog, Prostaglandin E1 Agonist End: 86-20-1980jzptyafwokA ([place]) 500 mcg pelletaluminum hydroxide 40 mg/ml / magnesium hydroxide 40 mg/ml / simethicone 4 mg/ml oral suspension (3 sources)Start: 03-14-2025 End: 25-86-9150oyuw 30 mL by mouth every four hours as neededStart: 11-03-2022 End: 60-68-9980lqll 30 mL by mouth every four hours as mL, Oral, Every 4 hours PRN, indigestion, Starting on Mon11/03/22 at 2228Start: 10-10-2018 End: 20-68-6954jmjbikah-magnesium hydroxide-simethicone (MAALOX PLUS) 200-200-20 mg/5 mL suspension 30 mLaspirin 81 mg chewable tablet (20 sources)Platelet Aggregation Inhibitor, Nonsteroidal Anti-inflammatory Drug Start: 05-09-2025 End: 08-85-7662nzxi 81 mg by mouth once daily81 mg, Oral, DAILY, First dose on Mon05/09/25 at 0900, Until DiscontinuedStart: 11-04-2022 End: 87-60-7449sjoz 81 mg by mouth once daily81 mg, Oral, Daily, First dose on Mon11/04/22 at 0900Start: 01-19-2022 End: 92-56-4611dcnb 81 mg by mouth once daily81 mg, Oral, Daily, First dose on Mon01/19/22 at 0900Start: 20-18-9050vsdw 1 capsule by mouth once dailyaspirin 81 mg cap Take 1 (one) capsule (81 mg total) by mouth daily . 11/27/2019 Active Start: 98-44-3026nuhomat Start Date: 07/03/19 Status: OrderedStart: 09-05-2018 End: 93-42-6264lwcb 162 mg by mouth once okcng889 mg, Oral, Daily, First dose on Mon09/05/18 at 1700 DO NOT CRUSH OR CHEW.Start: 09-05-2018 End: 20-82-7047pjuecnz chewable tablet 81 mgStart: 05-10-2017 End: 26-64-8811aopo 1 tablet by mouth once dailyBaby Aspirin Activeatorvastatin 40 mg oral tablet (20 sources)HMG-CoA Reductase InhibitorStart: 05-09-2025 End: 77-51-5517kdqs 80 mg by mouth once daily80 mg, Oral, DAILY, First dose on Mon05/09/25 at 0900, Until DiscontinuedStart: 03-14-2025 End: 45-18-8112rhna 80 mg by mouth once daily80 mg, Oral, Nightly, First dose (after last modification) on Mon03/14/25 at 2130Start: 07-09-2024 End: 21-15-5072pmfqhasxmcio (Lipitor) 80 MG tablet 07/09/2024 ActiveStart: 11-08-2023 End: 27-78-6937nioqbznhzrez (Lipitor) 40 MG tablet Indications: Hypercholesteremia (CMS/HCC) TAKE 1 TABLET EVERY DAY 100 tablet 3 11/08/2023 08/12/2024 Discontinued (Other)Start: 11-04-2022 End: 89-35-0168ugqm 40 mg by mouth once daily40 mg, Oral, Nightly, First dose on Mon11/04/22 at 2100Start: 04-15-2022 End: 47-82-5415eail 40 mg by mouth once daily40 mg, Oral, Daily, First dose on Mon04/15/22 at 0900Start: 01-19-2022 End: 24-78-7002tggb 40 mg by mouth once daily40 mg, Oral, Daily, First dose on Mon01/19/22 at 0900Start: 62-92-3320bjckprofozes Start Date: 07/03/19 Status: OrderedStart: 10-05-2018 End: 18-32-6084ibfg 40 mg by mouth once daily40 mg, Oral, Daily, First dose on Mon10/05/18 at 0900Start: 09-05-2018 End: 78-58-3028ycjt 40 mg by mouth once daily40 mg, Oral, Nightly, First dose on Mon09/05/18 at 2100Start: 05-10-2017 End: 83-62-9391ilir 2 tablets by mouth once dailyAtorvastatin 20 mg Tablet Discontinued 40 MG PO Daily May 10, 2017 12:00am May 02, 2025 4:12pmStart: 79-06-7374birx 40 mg by mouth once dailyAtorvastatin Active 40 MG PO Daily May 09, 2017 11:00pmStart: 60-83-5689qttg 20 mg by mouth once dailyAtorvastatin Active 20 MG PO Daily May 10, 2017 12:00am End: 09-83-3978hxvi 1 tablet by mouth twice daily, then take 0.5 tablet by mouth twice dailyatorvastatin 40 MG Tab tablet Take 1 tablet by mouth 2 times daily. Takes 1/2 tab bid 05/09/2025 Discontinued End: 96-59-3848vgqxojdppwld (LIPITOR) 80 MG tablet Take 0.5 (one-half) [...] rectal suppository (13 sources)Stimulant LaxativeStart: 10-11-2018 End: 72-50-0501bfrqmqfvq (DULCOLAX) suppository 10 mgStart: 09-04-2018 End: 31-78-6237zvin 5 mg by mouth once daily as needed for constipation5 mg, Oral, Daily PRN, constipation, Starting Mon09/04/18 at 2247 DO NOT CRUSH OR CHEW. End: 20-98-8944hgjj 1 tablet by mouth twice daily as needed for constipation bisacodyl (DULCOLAX) 5 mg EC tablet Take 5 mg by mouth 2 (two) times a day as needed for constipation . 0 03/13/2019 Discontinued (Therapy completed) budesonide-formoteroL (SYMBICORT) 160-4.5 mcg/actuation inhaler 2 puff (1 source)Start: 11-03-2022 End: 40-62-0097ywjcyzaorm-formoteroL (SYMBICORT) 160-4.5 mcg/actuation inhaler 2 puffcalcium carbonate 500 mg chewable tablet (1 source)Start: 03-14-2025 End: 35-96-7829elid 500 mg by mouth once daily as needed for gastroesophageal reflux qumebge890 mg, Oral, Daily PRN, indigestion, heartburn, Starting on Mon03/14/25 at 6, Give with Foodcalcium chloride 0.001 meq/ml / glucose 50 mg/ml / potassium chloride 0.004 meq/ml / sodium chloride 0.103 meq/ml / sodium lactate 0.028 meq/ml injectable solution (1 source)Start: 09-07-2018 End: 46-30-1654itwfisir 5 % in lactated ringers infusioncalcium chloride 0.0014 meq/ml / potassium chloride 0.004 meq/ml / sodium chloride 0.103 meq/ml / sodium lactate 0.028 meq/ml injectable solution (1 source)Start: 09-07-2018 End: 56-18-8981yujvtdxq Ringers infusioncefdinir 300 mg oral capsule (1 source)Cephalosporin Antibacterial End: 98-81-4741jxtakblc (OMNICEF) 300 MG capsulecefepime 2000 mg injection (4 sources)Cephalosporin AntibacterialStart: 05-09-2025 End: 82-64-3764vges 2 g intravenously every eight hours2 g, Intravenous, Administer over 4 Hours, EVERY 8 HOURS NON-STANDARD, First dose on Mon05/09/25 mg3909, Until Discontinued, Infuse STAT doses over 30 minutes. Infuse other doses over 4 hours., On hold since Mon05/12/2025 at 0808 until manually unheld Start: 93-25-5051fmkf 2 g intravenously every eight hoursStart: 11-04-2022 End: 46-84-3292ownp 2000 mg intravenously every twelve hourscefePIMe-dextrose (MAXIPIME) 2 gram/50 mL IVPB 2,000 mgcefTRIAXone 2000 mg injection (2 sources)Cephalosporin AntibacterialStart: 11-03-2022 End: 61-00-5605sesDMIEYamn (ROCEPHIN) IVPB 2 g (premix)Start: 01-18-2022 End: 35-51-6654vpxJALUBhqr (ROCEPHIN) IVPB 2 g (premix)celecoxib 200 mg oral capsule (11 sources)Nonsteroidal Anti-inflammatory DrugStart: 11-24-2021 End: 10-65-0959dipm 1 capsule by mouth twice dailycelecoxib 200 MG capsule Take 1 capsule by mouth 2 times daily. 60 capsule 11/24/2021 05/09/2025 Discontinued cephalexin 500 mg oral capsule (6 sources)Cephalosporin AntibacterialStart: 01-18-2022 End: 17-81-2954vtcp 1 capsule by mouth three times dailycephALEXin (KEFLEX) 500 MG capsule Take 500 mg by mouth 3 (three) times a day . 0 01/18/2022 04/15/2022 DiscontinuedStart: 09-29-2018 End: 77-30-7144bpme 1 capsule by mouth three times dailycephALEXin (KEFLEX) 500 MG capsule Take 500 mg by mouth 3 (three) times a day (for 7 days) . 0 09/2910/12/2018 Discontinuedclopidogrel 75 mg oral tablet (20 sources)P2Y12 Platelet InhibitorStart: 03-14-2025 End: 81-70-6024Nbxykbbb on Mon03/14/25 at 1702, For 1 dose, HERRERA BCAK: paulie overrideStart: 09-05-2018 End: 32-10-4582gckc 1 tablet by mouth once dailyclopidogrel (PLAVIX) 75 mg tablet Take 1 (one) tablet (75 mg total) by mouth daily . 30 tablet 1 09/13/2018 10/13/2018 ActiveStart: 05-10-2017 End: 43-33-1924ddgr 1 tablet by mouth once dailyClopidogrel (Plavix) 75 mg Tablet Discontinued 75 MG PO Daily May 10, 2017 12:00am May 12, 2017 11:03amcodeine phosphate 2 mg/ml / guaiFENesin 20 mg/ml oral solution (3 sources)Opioid AgonistStart: 05-09-2025 End: 39-88-7222qcco 10 mL by mouth every four hours as gcmwxu41 mL, Oral, EVERY 4 HOURS NEEDED, Starting on Mon05/09/25 at 1141, Until Mon05/13/25 at 1552, Congestion, CoughStart: 19-56-4027odze 1 mL by mouth every six hours cyclobenzaprine hydrochloride 10 mg oral tablet (1 source)Muscle RelaxantStart: 03-17-2025 End: 00-09-4539kqjq 10 mg by mouth every eight hours10 mg, Oral, Every 8 hours scheduled, First dose on Mon03/17/25 at 2200dexamethasone 1 mg/ml / neomycin 3.5 mg/ml / polymyxin b 64192 unt/ml ophthalmic suspension (1 source)Aminoglycoside Antibacterial, Polymyxin-class Antibacterial, Corticosteroid End: 93-34-5666gvsozdyl-polymyxin-dexamethasone (MAXITROL) 3.5mg/mL-10,000 unit/mL-0.1 % ophthalmic suspensiondocusate sodium 100 mg oral capsule (20 sources)Start: 07-15-2021 End: 10-03-3947ouqu 1 capsule by mouth twice dailydocusate 100 MG capsule Take 1 capsule by mouth 2 times daily. 60 capsule 07/15/2021 05/09/2025 Discontinued Start: 09-04-2011 End: 14-69-0607lqzddezn sodium (COLACE) 100 MG capsule Take 100 mg by mouth . 0 09/04/2011 03/13/2019 Discontinued(Therapy completed)docusate sodium 50 mg / sennosides, senior living 8.6 mg oral tablet (13 sources)Start: 03-14-2025 End: 31-25-9244lvkf 1 tablet by mouth once daily as needed for constipation1 tablet, Oral, Daily PRN, constipation, Starting on Mon03/14/25 at 2025, Use as first line agent for constipation. Do Not Crush or Chew if administering orally due to bitter taste. May be crushed ifgiven via tube.Start: 10-06-2018 End: 65-54-5504wzlzx-docusate (SENNA-S) 8.6-50 mg per tablet 1 tabletStart: 09-13-2018 End: 27-24-8944hxcs 1 tablet by mouth twice dailysenna-docusate (SENNA-S) 8.6-50 mg Take 1 (one) tablet by mouth 2 (two) times a day . 60 tablet 0 10/12/2018 10/12/2018 DiscontinuedStart: 09-11-2018 End: 58-64-9631xutfb-docusate (SENNA-S) 8.6-50 mg per tablet 2 tabletStart: 09-04-2018 End: 06-07-4829kcmn 1 tablet by mouth twice daily1 tablet, Oral, 2 times daily, First dose on Mon09/04/18 at 2300 NOT for abdominal surgery patients.& amp;nbsp; Hold for loose stools. Do Not Crush or Chew if administering orally dueto bitter taste. May be crushed if given via tube.0.4 ml enoxaparin sodium 100 mg/ml prefilled syringe (13 sources)Low Molecular Weight HeparinStart: 03-15-2025 End: 09-09-4236aewlar 40 mg by subcutaneous injection once daily40 mg, Subcutaneous, Daily, First dose on Mon03/15/25 at 0800, Administer in abdomen unless otherwise directed by prescriber. Notify physician if patient refuses., Indication: VTE ProphylaxisStart: 01-19-2022 End: 78-02-5579xgedixyfie (LOVENOX) syringe 40 mgStart: 10-12-2018 End: 22-54-3367fqlolu 0.4 mL by subcutaneous injection once dailyenoxaparin (LOVENOX) 40 mg/0.4 mL Syrg Inject 0.4 mL (40 mg total) under the skin daily . 12 mL 0 10/12/2018 11/11/2018 ActiveStart: 10-11-2018 End: 60-37-5114cnkwbcotrr (LOVENOX) syringe 40 mgStart: 10-09-2018 End: 63-72-1870gjhubjyrci (LOVENOX) syringe 40 mgStart: 10-05-2018 End: 49-64-6774iuxencpefn (LOVENOX) syringe 40 mg1 ml fentaNYL 0.05 mg/ml injection (3 sources)Opioid AgonistStart: 03-17-2025 End: 69-53-541725 mcg, Intravenous, Every 5 min PRN, Pain, Starting on Mon03/17/25 at 1601, For 4 doses, PACU (only), [] Do not give more than 100 mcg while in PACU.Start: 04-14-2022 End: 62-72-2813yiitjOSN (SUBLIMAZE) injection 50 mcgStart: 09-07-2018 End: 67-00-761283 mcg, Intravenous, Every 5 min PRN, moderate to severe pain, Starting Mon09/07/18 at 1507, For 4 doses, PACU (only)fluticasone propionate 0.05 mg/actuat metered dose nasal spray (20 sources)CorticosteroidStart: 03-11-2025 End: 89-06-0716pgux 1 spray(s) nasal route once daily as needed for rhinitis1 spray, Nasal, DAILY NEEDED, Starting on Mon05/09/25 at 2303, Until Mon05/13/25 at 1552, Allergies, Rhinitis, Dose is for each nostril.Start: 05-21-2024 End: 71-29-3125lwfk 1 spray(s) nasal route once dailyfluticasone (Flonase) 50 MCG/ACT nasal spray Indications: Seasonal allergic rhinitis due to pollen A dminister 1 spray into each nostril Daily Shake gently. Before first use, prime pump. After use, clean tip and replace cap. 48 g 3 11/04/2024 ActiveStart: 02-20-2024 End: 53-81-0784guma 1 spray(s) nasal route once daily in the morningfluticasone (Flonase) 50 MCG/ACT nasal spray Indications: Sinusitis, unspecified chronicity, unspecified location USE 1 SPRAY IN EACH NOSTRIL EVERY MORNING 32 g 3 02/20/2024 05/21/2024 Discontinued (Reorder)Start: 10-12-2018 End: 47-33-0074qtuhcptoktk (FLONASE) 50 mcg/actuation nasal spray 2 (two) sprays by Each Nare route daily . 16 g 12 10/12/2018 ActiveStart: 10-12-2018 End: 85-17-9125beacwgbqxrs (FLONASE) 50 mcg/actuation nasal spray 2 spray Fluticasone Propionate 50 MCG/ACT Nasal for 90 Days ActiveFluticasone Propionate 50 MCG/ACT Nasal for 90 Days Amhidt49 actuat fluticasone furoate 0.1 mg/actuat / umeclidinium 0.0625 mg/actuat / vilanterol 0.025 mg/actuat dry powder inhaler (5 sources)Anticholinergic, Corticosteroid, beta2-Adrenergic AgonistStart: 10-27-2022 End: 01-26-6257crqaueexvjh-umeclidin-vilanter (Trelegy Ellipta) 100-62.5-25 mcg DsDv 1 puff every night at bedtime. 0 10/27/2022 08/09/2023 Discontinued (Discontinued by another clinician)gabapentin 100 mg oral capsule (20 sources)Anti-epileptic AgentStart: 01-19-2022 End: 87-38-8756zhgk 100 mg by mouth every eight rirhg615 mg, Oral, Every 8 hours scheduled, First dose on Mon04/15/22 at 0200Start: 11-42-7312yenk 1 capsule by mouth three times dailygabapentin 300 mg Cap 300 mg = 1 cap(s), Oral, TID, # 270 cap(s), Refills(s) 0 Start Date: 10/05/21 Status: OrderedStart: 10-12-2018 End: 12-53-9294zkhssiglwf (NEURONTIN) 100 MG capsule Take 2 (two) capsules (200 mg total) by mouth every 8 (eight)hours (Days supply per fill: 30) . 180 capsule 0 10/12/2018 03/13/2019 Discontinued (Therapy completed)Start: 10-12-2018 End: 25-04-0497ynkadomnbh (NEURONTIN) capsule 200 mgStart: 09-07-2018 End: 41-12-7305ljsk 1 capsule by mouth every eight hoursgabapentin (NEURONTIN) 400 MG capsule Take 1 (one) capsule (400 mg total) by mouth every 8 (eight) h ours . 90 capsule 1 09/13/2018 10/13/2018 ActiveStart: 09-04-2018 End: 39-59-2644nutd 300 mg by mouth every twelve ipewg262 mg, Oral, Every 12 hours scheduled, First dose on Mon09/04/18 at 2350Start: 07-12-2018 End: 55-47-6305lpnc 3 capsules by mouth three times dailygabapentin (NEURONTIN) 100 MG capsule Take 300 mg by mouth 3 (three) times a day . 0 07/12/201808/28 Discontinued End: 44-47-0627rbkl 1 capsule by mouth three times dailygabapentin (NEURONTIN) 100 MG capsule Take 1 capsule 3 times a day by oral route for 30 days. 0 07/28 Discontinued (Discontinued by another clinician)Gabapentin Active gabapentin (NEURONTIN) 100 MG capsule Take 100 mg by mouth every 8 (eight) hours (Days supply per fill: {DAYS SUPPLY:79758}) . 0 Voeebg902 ml heparin sodium, porcine 100 unt/ml injection (4 sources)Unfractionated Heparin, Anti-coagulantStart: 03-15-2025 End: -70 Units/kg/hr 110.2 kg (0-77.14 mL/hr, rounded to 0-77.1 mL/hr), Intravenous, Continuous, Starting on 03/15/25 at 1345, Choose one of the following protocols: Cardiac / Arterial, Bolus options:Protocol WITHOUT initial bolus only, For Downtime Calculator, use: Heparin Infusion Standard Start: 09-11-2018 End: 47-24-1202klmyfvn (porcine) injection 5,000 UnitsStart: 09-04-2018 End: 88-43-2791xaaxjrt (porcine) 25,000 unit/250 mL(100 unit/mL) in D5W infusion heparin bolus from bag 0-5,000 Units (3 sources)Start: 03-15-2025 End: 82-12-39942-5,000 Units, Intravenous, Continuous PRN, IF the MAR calculator for heparin infusion specifies a bolus from bag is to be administered, Starting on 03/15/25 at 1248, Choose one of the following protocols: Cardiac / Arterial, Bolus options: Protocol WITHOUT initial bolus only, For Downtime Calculator, use: Heparin Infusion Standard Start: 09-06-2018 End: 68-75-9048krmewjt bolus from bag 0-5,000 UnitsStart: 09-04-2018 End: 66-41-3531jibvosb bolus from bag 0-5,000 Units1 ml hydrALAZINE [...] maximum dose or not ordered.Start: 10-11-2018 End: 66-29-3778qzpx 5 mg intravenous route every four hours as neededhydrALAZINE (APRESOLINE) injection 5 mg0.5 ml HYDROmorphone hydrochloride 1 mg/ml prefilled syringe (3 sources)Opioid AgonistStart: 03-17-2025 End: 56-71-0598ighz 1 mg intravenously every three hours as needed1 mg, Intravenous, Every 3 hours PRN, breakthru pain not controlled by PO, Starting on Mon03/17/25 at 1024Start: 03-14-2025 End: 27-34-3674iyjg 0.5 mg intravenously every three hours as [...] injection 0.25-0.5 mg (1 source)Start: 09-04-2018 End: 52-26-4364ituv 0.25-0.5 mg intravenous route every three hours as needed 0.25-0.5 mg, Intravenous, Every 3 hours PRN (may repeat), breakthrough pain, Starting 09/04/18 [id number] [] Initiate with 0.25 mg IV every [...] more than 3 mg total.Start: 09-04-2018 End: 00-92-0198SPZCAbqqfbjqr (DILAUDID) 0.5 mg/mL injection 0.5 mgHYDROmorphone (DILAUDID) 0.5 mg/mL injection 0.5-1.5 mg (1 source)Start: 09-05-2018 End: 25-20-9271HMOTQzsjhkgkl (DILAUDID) 0.5 mg/mL injection 0.5-1.5 mg HYDROmorphone (DILAUDID) 0.5 mg/mL injection 1 mg (1 source)Start: 09-05-2018 End: 69-48-4362QWPUYsoefeacc (DILAUDID) 0.5 mg/mL injection 1 mgHYDROmorphone (DILAUDID) injection 0.5 mg (1 source)Start: 03-17-2025 End: 50.5 mg, Intravenous, Every 10 min PRN, Pain, Starting on 03/17/25 at 1601, For 6 doses, PACU (only), Give if fentanyl not effective or not ordered. Do not give more than 3 mg total.HYDROmorphone in 0.9 % NaCl (DILAUDID) 15 mg/30 mL (0.5 mg/mL) RN PROCEDURE (1 source)Start: 09-06-2018 End: 38-79-4669MYGAAihszdmjy in 0.9 % NaCl (DILAUDID) 15 mg/30 mL (0.5 mg/mL) PCAhydrOXYzine hydrochloride 25 mg oral tablet (2 sources)AntihistamineStart: 05-10-2025 End: 53-75-6479dkuo 1 tablet by mouth every six hours as lukeis08 mg, Oral, EVERY 6 HOURS NEEDED, Starting on 05/10/25 at 1005, Until 05/13/25 at 1552, AnxietyiopamidoL (ISOVUE-370) 370 mg iodine /mL (76 %) injection 75 mL (1 source)Start: 11-03-2022 End: 14-81-4806qylsingsE (ISOVUE-370) 370 mg iodine /mL (76 %) injection 75 mL iopamidoL (ISOVUE-370) 76 % injection 125 mL (3 sources)Start: 04-14-2022 End: 93-38-3040dbzcmoazO (ISOVUE-370) 76 % injection 125 mLStart: 01-19-2022 End: 32-19-1336jwzyhtgeU (ISOVUE-370) 76 % injection 125 mLStart: 10-21-2019 End: 27-46-5516shjiyuhiG (ISOVUE-370) 76 % injection 125 mLiopamidoL (ISOVUE- 370) 76 % injection 75 mL (1 source)Start: 04-14-2022 End: 92-30-2964dbognnygK (ISOVUE-370) 76 % injection 75 mL1 ml ketorolac tromethamine 30 mg/ml injection (2 sources)Nonsteroidal Anti-inflammatory Drug, Cyclooxygenase InhibitorStart: 10-09-2018 End: 82-52-9654ufjp 15 mg intravenous route every six hoursketorolac (TORADOL) injection 15 mg End: 84-76-9162fzjugzlgt (ACULAR) 0.5 % ophthalmic solution4 ml labetalol [...] mg/ml topical lotion (13 sources)Start: 12-28-2021 End: 71-39-5759oqucznnn lactate (LAC-HYDRIN) 12 % lotion Apply topically 2 (two) times a day . 400 g 2 12/28/2021 11/08/2022 Discontinued (Stop Taking at Discharge)lactobacillus combo no.11 (PROBIOTIC) 15 billion cell CpSP (8 sources) End: 67-20-7341rbvnvsjcfymss combo no.11 (PROBIOTIC) 15 billion cell CpSP Take by mouth . 0 03/13/2019 Discontinued (Therapy completed)lactobacillus combo no.11 (PROBIOTIC) 15 billion cell CpSP Take by mouth . 0 Activelactulose 667 mg/ml oral solution (2 sources)Osmotic LaxativeStart: 05-11-2025 End: 42-55-227347 g, Oral, 2 TIMES DAILY NEEDED, Starting on Mon05/11/25 at 0916, Until Mon05/13/25 at 1552, Constipation 1st Linelidocaine hydrochloride 0.02 mg/mg topical gel (1 source)Antiarrhythmic, Amide Local AnestheticStart: 03-17-2025 End: Application, Intra-urethral, As needed, For insertion of Urinary Catheter, Starting on Mon03/17/25 at 2111, For 1 doselosartan potassium 50 mg oral tablet (20 sources)Angiotensin 2 Receptor BlockerStart: 05-09-2025 End: 46-71-8813zkqs 25 mg by mouth once daily25 mg, Oral, DAILY, First dose on Mon05/09/25 at 0900, Until DiscontinuedStart: 46-01-9838pegr 1 tablet by mouth twice dailyStart: 04-25-2022 End: 32-00-7954uybk 1 tablet by mouth once dailylosartan (Cozaar) 50 MG tablet Indications: Benign essential hypertension Take 1 tablet (50 mg) by mouth Daily 100 tablet 3 07/29/2024 ActiveStart: 04-15-2022 End: 92-12-4280hzgb 50 mg by mouth once daily50 mg, Oral, Daily, First dose on Mon04/15/22 at 0900Start: 01-19-2022 End: 03-37-5924qevp 50 mg by mouth once daily at lunch50 mg, Oral, Daily with lunch, First dose on Mon01/19/22 at 1200Start: 09-25-2019 End: 57-60-8475yfgo 1 mg by mouth once dailylosartan 25 mg Tab mg tab(s), Oral, Daily, Refills(s) 0 Start Date: 08/04/20 Status: Orderedtake 0.5 tablet by mouth once dailylosartan 50 MG tablet Take 0.5 tablets by mouth daily. 0 Active losartan 50 MG tablet Take 25 mg by mouth daily. 0 Activemagnesium citrate 58.2 mg/ml oral solution (9 sources)Start: 09-13-2018 End: 86-77-3769tvybqmloa citrate solution Take 296 mL by mouth as needed (Take if no bowel movement for 2-3 days) . 296 mL 0 09/13/2018 10/12/2018 Discontinued Start: 09-05-2018 End: 66-00-0945vlxk 296 mL by mouth glxa355 mL, Oral, Once, Mon09/05/18 at 1700, For 1 dosemagnesium hydroxide 80 mg/ml oral suspension (1 source)Start: 01-19-2022 End: 81-53-1745dndrobodq hydroxide (MOM) 400 mg/5 mL suspension 2,400 mg melatonin 3 mg oral tablet (4 sources)Start: 05-09-2025 End: 25-96-5174xxvw 6 mg by mouth once daily at bedtime as needed6 mg, Oral, DAILY AT BEDTIME NEEDED, Starting on Mon05/09/25 at 0220, Until Mon05/13/25 at 1552,InsomniaStart: 03-14-2025 End: 49-00-6228Lxbnm: 01-19-2022 End: 57-62-5500crxyajcfy Tab 5 mgnaloxegol 12.5 mg oral tablet (1 source)Opioid AntagonistStart: 09-12-2018 End: 11-20-6686qksqjvxwa (MOVANTIK) tablet 12.5 mgnaloxone (NARCAN) injection 0.1 mg (6 sources)Start: 03-14-2025 End: 94-37-8159iygobhzd (NARCAN) injection 0.1 mgStart: 11-04-2022 End: 88-75-8371ydfdgyrr (NARCAN) injection 0.1 mgStart: 04-15-2022 End: 28-45-7951dpsnayny (NARCAN) injection 0.1 mgStart: 01-19-2022 End: 42-09-0145ylmlvwzj (NARCAN) injection 0.1 mgStart: 10-08-2018 End: 69-68-5643tncirozt (NARCAN) injection 0.1 mgStart: 09-07-2018 End: 59-62-0059gultsvrr (NARCAN) injection 0.1 mgnepafenac 3 mg/ml ophthalmic suspension (1 source)Nonsteroidal Anti-inflammatory Drug End: 84-16-9225qszxunjae (Ilevro) 0.3 % DrpSondansetron (ZOFRAN-ODT) disintegrating tablet 4 mg (4 sources)Start: 11-03-2022 End: 96-09-1835ryry 1 tablet by mouth every six hours as needed for nausea and vomitingondansetron (ZOFRAN-ODT) disintegrating tablet 4 mgStart: 04-15-2022 End: 14-15-8394nznm 1 tablet by mouth every six hours as needed for nausea and vomitingondansetron (ZOFRAN-ODT) disintegrating tablet 4 mgStart: 01-19-2022 End: 05-85-2950kufc 1 tablet by mouth every six hours as needed for nausea and vomitingondansetron (ZOFRAN-ODT) disintegrating tablet 4 mgStart: 10-08-2018 End: 83-68-0285bjfz 1 tablet by mouth every six hours as neededondansetron (ZOFRAN-ODT) disintegrating tablet 4 mgOndansetron 4mg/2ml (ZOFRAN) injection 4 mg (2 sources)Start: 05-09-2025 End: 24-73-4596zuqa 4 mg intravenously every six hours as neededOndansetron 4mg/2ml (ZOFRAN) injection 4 mgoxyCODONE hydrochloride 5 mg oral tablet (16 sources)Opioid AgonistStart: 03-17-2025 End: 13-72-7553qngo 5-10 mg by mouth every four hours [...] dose reduc tion, call physician.Start: 07-15-2021 End: 46-60-5512amop 1-2 tablets by mouth every four to six hours as needed for painoxyCODONE 5 MG tablet Indications: Acute postoperative pain of right hip Take 1-2 tabs po q 4-6 hours PRN pain. Wean as tolerated. 40 tablet 07/15/2021 05/09/2025 DiscontinuedStart: 09-07-2018 End: 50-97-1869fjcz 1 tablet by mouth every six hours as needed for pain oxyCODONE (ROXICODONE) 5 MG immediate release tablet Indications: Ischemic foot , Critical lower limb ischemia Take 1 (one) tablet (5 mg total) by mouth every 6 (six) hours as needed for pain . 28 tablet 0 09/13/2018 09/20/2018 ActiveStart: 09-04-2018 End: 26-86-4140tqug 5-10 mg by mouth every four hours [...] mg/ml nasal spray (2 sources)Start: 01-19-2022 End: 28-43-5477nfzspawxuuehb (AFRIN) 0.05 % nasal spray 2 spray End: 94-20-6083dnymuqxehrxeu (AFRIN) 0.05 % nasal spray Instill 2 sprays into each nostril 2 (two) times a day as needed for congestion . 0 10/12/2018 Discontinuedpantoprazole 40 mg delayed release oral tablet (18 sources)Proton Pump InhibitorStart: 05-09-2025 End: 65-43-1064agvm 40 mg by mouth once daily40 mg, Oral, DAILY, First dose on Mon05/09/25 at 0900, Until Discontinued, Swallow whole; do not crush or chew., Indications: Continuation of Home TherapyStart: 03-15-2025 End: 77-04-2323wgvt 40 mg by mouth once daily40 mg, Oral, Daily, First dose on Mon03/15/25 at 0900, DO NOT CRUSH OR CHEW.Start: 11-03-2022 End: 20-64-8895omqu 40 mg by mouth twice daily40 mg, Oral, 2 times daily, First dose on Prerna 11/03/22 at 2230 DO NOT CRUSH OR CHEW.Start: 04-15-2022 End: 71-20-2055rdwx 40 mg by mouth once daily40 mg, Oral, Daily, First dose on Mon04/15/22 at 0900 DO NOT CRUSH OR CHEW.Start: 01-19-2022 End: 23-94-0300razr 40 mg by mouth once daily40 mg, Oral, Daily, First dose on Mon01/19/22 at 0900 DO NOT CRUSH OR CHEW.Start: 10-12-2018 End: 66-33-3621ujjr 1 tablet by mouth once dailypantoprazole (PROTONIX) 40 MG tablet Take 1 (one) tablet (40 mg total) by mouth daily . 30 tablet 03/13/2019 Discontinued (Therapy completed)Start: 10-09-2018 End: 35-53-2098yrwepbnfxben (PROTONIX) injection 40 mgperflutren lipid microspheres (DEFINITY) 0.143 mg/mL solution 0-10 mL of mixture (2 sources)Start: 11-06-2022 End: 02-61-5785comownaxer lipid microspheres (DEFINITY) 0.143 mg/mL solution 0- 10 mL of mixtureStart: 10-08-2018 End: 71-34-5160dtklfmsoob lipid microspheres (DEFINITY) 0.143 mg/mL solution 0- 10 mL of mixturepolyvinyl alcohol 0.014 ml/ml ophthalmic solution (1 source)Start: 03-14-2025 End: drop, Both Eyes, As needed, dry eyes, Starting on Mon03/14/25 at 2025prochlorperazine 5 mg/ml injectable solution (2 sources)PhenothiazineStart: 03-18-2025 End: 78-17-9440ohru 2.5 mg intravenously every six hours as needed for nausea2.5 mg, Intravenous, Every 6 hours PRN, nausea, Starting on Mon03/18/25 at 0202, If IV, give slow IV push at a rate not exceeding 5 mg/minute and remain lying down for 30 minutes to reduce risk of hypotension. If IM, inject deep into outer buttocks quadrant.Start: 09-06-2018 End: 17-44-4450qnbt 5 mg intravenous route every six hours as needed prochlorperazine (COMPAZINE) injection 5 mgsennosides, senior living 8.6 mg oral tablet (15 sources)Start: 05-11-2025 End: 80-29-6047cfkg 8.6 mg by mouth twice daily8.6 mg, Oral, 2 TIMES DAILY, First dose (after last modification) on Mon05/11/25 at 0930, Until Discontinued Start: 09-04-2011 End: 38-91-7497poew 8.6 mg by mouth once daily as needed for constipation8.6 mg, Oral, DAILY NEEDED, Starting on Mon05/09/25 at 0221, Until Mon05/11/25 at 0916, Constipation 1st Linesildenafil 100 mg oral tablet (10 sources)Phosphodiesterase 5 InhibitorStart: 05-10-2017 End: 87-20-1035lbmj 1 tablet by mouth once daily as neededSildenafil 100 mg Tablet Discontinued 100 MG PO Daily as needed for Erectile Dysfunction May 10, 2017 12:00am October 12, 2023 9:53fu099 ml sodium chloride 9 mg/ml injection (19 sources)Start: 05-09-2025 End: 00-30-3004Fhhkasztgkg, at 20 mL/hr, NEEDED, Starting on Mon05/09/25 [...] stream; Upside down a drop.Start: 03-14-2025 End: 70-62-3294egwkfh chloride (PF) (NS) flush 5 mLStart: 11-05-2022 End: 60-72-5169qzbfwm chloride (OCEAN) 0.65 % nasal spray 1 sprayStart: 11-03-2022 End: 06-87-1013qctgwv chloride (PF) (NS) flush 5 mLStart: 11-03-2022 End: 65-93-4769mufzvb chloride (PF) (NS) flush 5 mLStart: 04-15-2022 End: 64-51-9624bjwnhf chloride (PF) (NS) flush 5 mLStart: 04-14-2022 End: 49-87-4845usrwia chloride (PF) (NS) flush 5 mLStart: 01-19-2022 End: 56-54-7035bfnfff chloride (PF) (NS) flush 5 mLStart: 01-18-2022 End: 93-88-5408agtkoo chloride 0.9% (NS) bolus 1,000 mLStart: 10-09-2018 End: 95-45-7736zghgaa chloride 0.9% (NS)Start: 09-11-2018 End: 33-36-7688mytwzk chloride 0.9% (NS)Start: 09-05-2018 End: 02-49-5399hxke 125 mL intravenous route every acqs912 mL/hr, Intravenous, Continuous, Starting Mon09/05/18 at 1700, For 3 hoursStart: 09-05-2018 End: 83-62-4461ousovr chloride 0.9% (NS)sodium chloride (PF) (NS) 0.9 % contrast line flush 10 mL (1 source)Start: 01-19-2022 End: 09-54-3344eblari chloride (PF) (NS) 0.9 % contrast line flush 10 mL therapeutic multivitamin-minerals tablet (10 sources)Start: 07-15-2021 End: 72-48-6136cjtu 1 tablet by mouth at bedtimetherapeutic multivitamin- minerals tablet Take 1 tablet by mouth at bedtime. 30 tablet 07/15/202107/2025 Discontinued (Medication Reconciliation (suppress cancel msg))Start: 32-48-5257kxlt 1 tablet by mouth at bedtimetherapeutic multivitamin-minerals tablet Take 1 tablet by mouth at bedtime. 30 tablet 0 07/15/2021 Mkeeyu56 actuat tiotropium 0.0025 mg/actuat inhalation spray (12 sources)AnticholinergicStart: 01-22-2022 End: 35-42-2333ekwu 2 puff(s) by inhalation once dailytiotropium bromide (SPIRIVA RESPIMAT) 2.5 mcg/actuation Mist Inhale 2 (two) puffs daily Start: 01/22/22. 4 g 2 01/22/2022 11/08/2022 Discontinued (Stop Taking at Discharge) Start: 01-22-2022 End: 49-40-2259skov 2 puff(s) by inhalation once dailytiotropium bromide (SPIRIVA RESPIMAT) 2.5 mcg/actuation Mist Inhale 2 (two) puffs daily Start: 01/22/22. 4 g 2 01/22/2022tart: 01-19-2022 End: 55-80-3944bijtukjkzf bromide (SPIRIVA RESPIMAT) 2.5 mcg/actuation inhaler 2 puff10 ml tranexamic acid 100 mg/ml injection (3 sources)Antifibrinolytic AgentStart: 05-10-2025 End: 09-69-0848117 mg, Nebulization, 2 TIMES DAILY, First dose on 05/10/25 at 0900, Until Discontinued, For nebulization only.Start: 95-73-2476euyd 500 mg by inhalation three times dailytraZODone hydrochloride 50 mg oral tablet (1 source)Serotonin Reuptake InhibitorStart: 10-04-2018 End: 11-75-9393xssEGUrfw (DESYREL) tablet 50 mgurea 400 mg/ml topical cream (10 sources) End: 83-49-9321uvki (CARMOL) 40 % Crea 03/14/2025 Discontinued (Therapy completed)150 ml vancomycin 5 mg/ml injection (1 source)Glycopeptide AntibacterialStart: 11-04-2022 End: 12-36-1672derm 750 mg intravenously every twelve hoursvancomycin (VANCOCIN) 750 mg in sodium chloride 0.9% (NS) 150 mL IVPBvancomycin (VANCOCIN) 1,500 mg in sodium chloride 0.9 % (NS) 500 mL IVPB (1 source)Start: 10-08-2018 End: 50-72-0306yjaj 1500 mg intravenous route every twelve hoursvancomycin (VANCOCIN) 1,500 mg in sodium chloride 0.9 % (NS) 500 mL IVPBvancomycin (VANCOCIN) 1,750 mg in sodium chloride 0.9 % (NS) 500 mL IVPB (3 sources)Start: 10-12-2018 End: 86-27-8899xuntqxbqzh (VANCOCIN) 1,750 mg in sodium chloride 0.9 % (NS) 500 mL IVPBStart: 10-11-2018 End: 00-09-9619qatacsrzdo (VANCOCIN) 1,750 mg in sodium chloride 0.9 % (NS) 500 mL IVPBStart: 10-04-2018 End: 90-13-0810drijbkjdwe (VANCOCIN) 1,750 mg in sodium chloride 0.9 % (NS) 500 mL IVPBvancomycin (VANCOCIN) 1750 mg in sodium chloride 0.9% (NS) 500 mL IVPB (1 source)Start: 01-20-2022 End: 85-77-7964npttnexcox (VANCOCIN) 1750 mg in sodium chloride 0.9% (NS) 500 mL IVPBvancomycin (VANCOCIN) 2,500 mg in sodium chloride 0.9 % (NS) 500 mL IVPB (1 source)Start: 11-03-2022 End: 98-37-5417yanweqjacj (VANCOCIN) 2,500 mg in sodium chloride 0.9 % (NS) 500 mL IVPBvancomycin (VANCOCIN) 2000 mg in sodium chloride 0.9% 500 mL IVPB (1 source)Start: 01-18-2022 End: 54-04-8046stexlrzclf (VANCOCIN) 2000 mg in sodium chloride 0.9% 500 mL IVPB Vancomycin HCl in NaCl (Vancocin) 1,250 mg 287.5 ml premade IVPB (2 sources)Start: 05-09-2025 End: 89-74-4155mlvr 1250 mg intravenously every twelve hours1,250 mg, Intravenous, Administer over 2 Hours, EVERY 12 HOURS NON-STANDARD, First dose (after lastreorder) on Mon05/09/25 at 1830, Until Discontinued, Indication for treatment with Vancomycin - Culture/Source: infected bullae vs lung abscess Vancomycin HCl in NaCl (Vancocin) 1,500 mg 290 ml premade IVPB (4 sources)Start: 05-10-2025 End: 39-07-8505tfva 1500 mg intravenously every twelve hours1,500 mg, [...] Translations: [Non- ST elevation (NSTEMI) myocardial infarction]Onset: 64-25-7917FgyifxfOyjeyz; peripheral; and visceral artery aneurysms (20 sources)Thoracic aortic aneurysm, without rupture; Translations: [Abdominal aortic aneurysm]Onset: 930452-12-2063KjqbjxbVqlpvr (20 sources)Asthmatic bronchitis; Translations: [Unspecified asthma, uncomplicated]Onset: 100510-69-0622YiivugkCfaxur of prostate (20 sources)Malignant tumor of prostate; Translations: [Malignant neoplasm of prostate]Onset: 372309-74-6395SviduukNcobej of prostate (9 sources)History of malignant neoplasm of prostate; Translations: [Personal history of malignant neoplasm ofprostate]Onset: 689743-23-5778Wrcpgiqi Cardiac dysrhythmias (20 sources)Paroxysmal atrial fibrillation; Translations: [Paroxysmal atrial fibrillation]Onset: 339944-71-6852YlfhwqcRjrliey kidney disease (20 sources)Chronic kidney disease stage 3A ; Translations: [Stage 3a chronic kidney disease (HCC)]Onset: 860016-16-9328AmloluzKzdegvv obstructive pulmonary disease and bronchiectasis (20 sources)Chronic obstructive lung disease; Translations: [Chronic obstructive pulmonary disease, unspecified]Onset: 10-30-2022 Resolved: 55-02-1272HlohpusSivmqud obstructive pulmonary disease and bronchiectasis (6 sources)Bronchitis, not specified as acute or chronic; Translations: [Bronchitis]Onset: 507198-08-6928InujhxxuJpwnrun ulcer of skin (20 sources)Ulcer of toe; Translations: [Ischemic ulcer of toe]Onset: 04-14-2025 76-97-1144IckhbfnWdrfsthyxhp and hemorrhagic disorders (20 sources)Thrombophilia; Translations: [Other thrombophilia]Onset: 03-21-2024 12-37-8847GgvmcmfRclkiwhambbw of device; implant or graft (20 sources)Arteriosclerosis of coronary artery bypass graft; Translations: [Atherosclerosis of coronary arterybypass graft(s) without angina pectoris] Onset: 330142-50-1298YtgybkpRmtgiyjdiszc of device; implant or graft (1 source)Joint pain; Translations: [Pain due to internal orthopedic prosthetic devices, implants and grafts,subsequent encounter]EpisodicConditions associated with dizziness or vertigo (1 source)Dizziness and giddiness; Translations: [Dizziness and giddiness]Onset: 49-53-2015FfbsdiqcGvlzjseiiz heart failure; nonhypertensive (20 sources)Acute on chronic diastolic (congestive) heart failure; Translations: [Chronic heart failure co-occurrent with normal ejection fraction]Onset: 04-37-7985FnpizbgRnpmsszu atherosclerosis and other heart disease (20 sources)Coronary atherosclerosis; Translations: [Atherosclerotic heart disease of [place] coronary artery without angina pectoris]Onset: 07-04-2008 73-27-2004PlmhyznGjjxwwqdui and other anemia (11 sources)Anemia; Translations: [Anemia, unspecified]Onset: 05-09-2025 63-73-6243GtylzvlzGreqcptcf of lipid metabolism (20 sources)Hypercholesterolemia; Translations: [Pure hypercholesterolemia, unspecified]Onset: 08-30-2013 Resolved: 951541-35-5023LovkplyCrfpzokxh of teeth and jaw (1 source)Arthralgia of bilateral temporomandibular joint; Translations: [Bilateral temporomandibular joint pain]Essential hypertension (20 sources)Essential hypertension; Translations: [Essential (primary) hypertension]Onset: 040271-64-3725PdouxwnSlechgre (14 sources)Gangrene of left foot; Translations: [Gangrene of left foot]Onset: 773109-81-0781Byzuhywqzycew symptoms and ill-defined conditions (9 sources)Nocturia; Translations: [Dysuria]65-45-8355HahyyzglSbbbs valve disorders (20 sources)Aortic valve regurgitation; Translations: [Nonrheumatic aortic (valve) insufficiency]Onset: 516188-49-0662IknzwugArpskdyvvjy of prostate (9 sources)Benign prostatic hypertrophy with outflow obstruction; Translations: [Benign prostatic hyperplasia with lower urinary tract symptoms]Onset: 698057-82-9871CwxpqdkFdvqacbvkoxd with complications and secondary hypertension (20 sources)Chronic kidney disease due to hypertension; Translations: [Hypertensive chronic kidney disease withstage 1 through stage 4 chronic kidney disease, or unspecified chronic kidney disease]Onset: ChronicImmunizations and screening for infectious disease (20 sources)Needs influenza immunization; Translations: [Encounter for immunization]Onset: 06-06-2023 Resolved: 764242-34-9420SdcdryreFcxswrxis arthritis and osteomyelitis (except that caused by tuberculosis or sexually transmitted disease) (20 sources)Osteomyelitis of right foot; Translations: [Osteomyelitis, unspecified]Onset: 363632-92-9826NtushaxDfusbyqodmlgz mental health disorders (5 sources)Primary insomnia; Translations: [Primary insomnia]70-66-0490Gkersjm Nonspecific chest pain (20 sources)Other chest pain; Translations: [Chest pain, unspecified]Onset: 08-30-2013 Resolved: 147260-48-0242MxybbxpcSywjmhqwa or stenosis of precerebral arteries (20 sources)Bilateral stenosis of carotid arteries; Translations: [Occlusion and stenosis of bilateral carotid arteries]Onset: 43-34-9607YgehmxiFqrzcjcqm or stenosis of precerebral arteries (2 sources)Bilateral carotid artery stenosis; Translations: [Bilateral carotid artery stenosis]Osteoarthritis (20 sources)Arthritis; Translations: [Unspecified osteoarthritis, unspecified site]Onset: 596351-18-2749YdhtdmwNliif and ill-defined heart disease (4 sources)Heart disease, unspecified; Translations: [HEART DISEASE UNSPECIFIED] Onset: 97-41-6398GptexptFwkvi bone disease and musculoskeletal deformities (2 sources)History of amputation of foot; Translations: [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 (HCC)]ChronicOther bone disease and musculoskeletal deformities (16 sources)History of amputation of left foot; Translations: [Acquired absence of left foot]Onset: 469076-16-0231HvjqodlNlhwo bone disease and musculoskeletal deformities (20 sources)Absence of lower limb; 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]Onset: 099454-83-7910QfijldaBitin bone disease and musculoskeletal deformities (10 sources)Amputated foot; Translations: [Acquired absence of unspecified foot] Onset: 899396-56-6687PdxdekzZiwyq circulatory disease (20 sources)Critical lower limb ischemia ; Translations: [Critical lower limb ischemia]Onset: 168982-84-0042XwxamscKspts circulatory disease (1 source)Other disorder of circulatory system; Translations: [Ischemic foot] EpisodicOther circulatory disease (5 sources)History of arterial bypass of lower limb artery; Translations: [S/P bypass graft of extremity]EpisodicOther circulatory disease (2 sources)Other specified symptoms and signs involving the circulatory and respiratory systemsEpisodicOther circulatory disease (1 source)Critical lower limb bqndqljy68-50-5000LnkpjedjXdtfq circulatory disease (2 sources)Wheeze - rhonchi; Translations: [Other specified symptoms and signs involving the circulatory and respiratory systems]36-05-3178GqpmxsqiZxqri connective tissue disease (20 sources)History of total hip arthroplasty; Translations: [Presence of unspecified artificial hip joint]Onset: 594067-79-3957UihppleXynzn connective tissue disease (3 sources)History of total replacement of right hip joint; Translations: [Presence of right artificial hip joint]ChronicOther connective tissue disease (2 sources)Presence of right artificial hip joint; Translations: [Presence of right artificial hip joint]Onset: 85-30-6504JerhaufZntby connective tissue disease (20 sources)Polymyalgia rheumatica; Translations: [Polymyalgia rheumatica]Onset: 837160-40-0502HgikwmrIoynj connective tissue disease (2 sources)Pain in left foot; Translations: [Left foot pain]EpisodicOther connective tissue disease (2 sources)Pain in left leg; Translations: [Pain in left leg]Onset: 08-29-2018 EpisodicOther connective tissue disease (2 sources)Pain in leg, unspecified; Translations: [Pain in leg, unspecified] Onset: 84-38-6713PuuzcoelRloxx connective tissue disease (3 sources)Pain in right lower limb; Translations: [Pain in right leg]Episodic Other connective tissue disease (2 sources)Pain in right leg; Translations: [Pain in right leg]Onset: 03-14-2025 EpisodicOther connective tissue disease (2 sources)Posterior tibial tendinitis, right leg; Translations: [Posterior tibial tendinitis, right leg]Onset: 78-92-2513VezpnkvwPmcxv connective tissue disease (1 source)Pain in right foot; Translations: [Pain in right foot]Onset: 21-18-3520NcdbjajvCdbtg diseases of kidney and ureters (1 source)Urinary tract obstruction; Translations: [Other obstructive and reflux uropathy]Onset: 83-32-3389HqhvijjjYbjvs ear and sense organ disorders (1 source)Referred otalgia; Translations: [Referred otalgia of right ear] EpisodicOther ear and sense organ disorders (4 sources)Acute eczematoid otitis externa; Translations: [Acute eczematoid otitis externa, right ear]Onset: 908088-09-4448UjmasmprFpfcf hematologic conditions (1 source)Raised cardiac enzyme or marker; Translations: [Other specified abnormalities of plasma proteins]EpisodicOther lower respiratory disease (19 sources)Hemoptysis; Translations: [Hemoptysis]Onset: EpisodicOther lower respiratory disease (2 sources)Abscess of lung; Translations: [Abscess of lung without pneumonia] 83-62-2390ZvqlkgqxFhciw lower respiratory disease (2 sources)Hemoptysis; Translations: [Hemoptysis]Onset: 62-43-8646MayfqlwlTkfvo lower respiratory disease (1 source)Dyspnea, unspecified; Translations: [Dyspnea, unspecified]Onset: 86-89-8658WgfsdsauJnqlb lower respiratory disease (1 source)Abscess of lung without pneumonia; Translations: [Abscess of lung without pneumonia]Onset: 05-24-6621NxolmszeSborq male genital disorders (3 sources)Euzbmtwka79-06-7974YrquosfBgdtw male genital disorders (3 sources)Impotence of organic yselfq83-04-9526SkevrfrLvoxn male genital disorders (2 sources)Male erectile dysfunction, unspecified; Translations: [Erectile dysfunction]Onset: 61-70-9965XebgodeTxkbv male genital disorders (20 sources)Secondary erectile dysfunction; Translations: [Male erectile dysfunction, unspecified]Onset: 669876-61-3348TldvhdgAfcwd nervous system disorders (20 sources)Neuropathy; Translations: [Polyneuropathy, unspecified]Onset: 403500-55-0476UdmquswCwlaw nervous system disorders (20 sources)Chronic pain; Translations: [Other chronic pain]Onset: 04-09-2023 57-80-4931SukayhsSgrvg nervous system disorders (20 sources)Phantom limb syndrome with pain; Translations: [Phantom limb syndrome with pain]Onset: 960276-06-2981SlwznqzDjdlb nervous system disorders (20 sources)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; Translations: [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]Onset: 207431-42-6593MhnmfseJevwa nervous system disorders (1 source)Acute postoperative pain; Translations: [Acute post-operative pain] EpisodicOther nervous system disorders (2 sources)Other acute postprocedural pain; Translations: [Other acute postprocedural pain]Onset: 48-53-1038MmbuugtqAgeid nervous system disorders (1 source)Skin tenderness; Translations: [Other disturbances of skin sensation] EpisodicOther nutritional; endocrine; and metabolic disorders (20 sources)Obesity; Translations: [Obesity, unspecified]Onset: 09-05-2018 64-54-4730FbfzqvmFvret nutritional; endocrine; and metabolic disorders (20 sources)Disorder of lipid metabolism; Translations: [Disorder of lipoprotein metabolism, unspecified]Onset: 371746-35-5461AcbcmplChyup screening for suspected conditions (not mental disorders or infectious disease) (20 sources)Radiology result abnormal; Translations: [Abnormal findings on diagnostic imaging of other specified body structures]Onset: 04-09-2023 83-92-6888GoslyqaZpdsq screening for suspected conditions (not mental disorders [...] allergic rhinitis; Translations: [Other seasonal allergic rhinitis]Onset: 092064-20-4501XhlfpflWclnf upper respiratory disease (6 sources)Allergic rhinitis due to pollen; Translations: [Allergic rhinitis due to pollen]16-88-1231WzzlhjbLyvzy upper respiratory infections (2 sources)Upper respiratory infection; Translations: [Acute upper respiratory infection, unspecified]19-01-0343VmgqheznWwpfivqcml and visceral atherosclerosis (20 sources)Peripheral vascular disease; Translations: [Atherosclerosis of [place] arteries of the extremities]Onset: 08-08-2018 Resolved: 46-05-0777MolfbtoJfvuxeddmu and visceral atherosclerosis (1 source)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; Translations: [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 (HCC)]Pulmonary heart disease (20 sources)Pulmonary hypertension; Translations: [Pulmonary hypertension, unspecified]Onset: 555410-03-3711AygfijeFuinzccv codes; unclassified (4 sources)Other specified postprocedural statesOnset: 04-19-2022 Resolved: 48-50-0417DekdrqsdQnbzopjx codes; unclassified (1 source)Peripheral edema; Translations: [Edema, unspecified]Episodic Respiratory failure; insufficiency; arrest (adult) (3 sources)Acute respiratory failure; Translations: [Acute respiratory failure with hypoxia]Onset: 145333-04-1502VgffxrmyVplonojttjx; intervertebral disc disorders; other back problems (20 sources)Lumbosacral spondylosis without myelopathy; Translations: [Spondylosis without myelopathy or radiculopathy, lumbosacral region]Onset: 626525-24-2173MhidnwtHxyxdbhkh-zftjeuc disorders (13 sources)Opioid dependence; Translations: [Opioid dependence, uncomplicated] Onset: 204107-76-0873UighqwuEaeztldxtlxe (2 sources)Unknown / UNK(Unknown)Onset: 88-05-4687Wbnwifrutacf (3 sources)Asymptomatic microscopic rzomoxvwm02-09-1450Zecrwxsonikt (3 sources)Drug therapy qrzlais57-41-9335Wwiwcjpfembt (1 source)Aneurysm of the ascending aorta, without rupture; Translations: [Aneurysm of the ascending aorta, without rupture]Onset: 91-00-9609Gvbhkpfykwyp (6 sources)call to schedule follow up with Dr. Michel (1 source)Hematoma of arm, left, initial rztxumqpe97-41-4843Pelfozzdhrox (2 sources)Please arrange a follow-up appointment upon discharge from facility. Viral infection (20 sources)Herpes zoster; Translations: [Zoster without complications]Onset: 09-04-2011 Resolved: 773221-97-7848Deflaeda Past or Other Problems Problem ClassificationProblemDateDocumented DateEpisodic/ChronicAbdominal pain (20 sources)Abdominal pain; Translations: [Unspecified abdominal pain]Onset: 07-11-2014 Resolved: 015670-74-6530QfuuiqqaYlqdcgwerfwcoi/social admission (2 sources)Patient encounter status; Translations: [Other specified counseling] 01-49-3914FcupdymeDlutjgaz (20 sources)Cataract; Translations: [Unspecified cataract]Onset: 04-09-2023 Resolved: 205910-64-2175TnkjnthTdmtkancvxata of surgical procedures or medical care (20 sources)Late amputation stump complication; Translations: [Other complications of amputation stump]Onset: 434572-02-2187QloiusliIswyqwkj atherosclerosis and other heart disease (2 sources)Presence of aortocoronary bypass graft; Translations: [Presence of aortocoronary bypass graft]Onset: 54-61-7733InlbxaccAxksmyvk (20 sources)Gangrenous disorder; Translations: [Gangrene, not elsewhere classified]Onset: 10-04-2018 Resolved: 848332-53-7350HtnmpskwPyal disorders (20 sources)Mood disordersOnset: 04-26-2024 Resolved: Nausea and vomiting (20 sources)Nausea; Translations: [Nausea]Onset: 06-06-2023 Resolved: 931069-70-4807LqchookyVlkmf bone disease and musculoskeletal deformities (20 sources)Avascular necrosis of bone of hip; 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]Onset: 09-04-2011 Resolved: 670334-39-2812HvzlnpbUvhhu connective tissue disease (20 sources)Pain in left lower limb; Translations: [Pain in left leg]Onset: 09-04-2011 Resolved: 271459-42-9866YvkwwtklWcbom connective tissue disease (2 sources)Contracture of tendo achilles; Translations: [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, left]EpisodicOther connective tissue disease (20 sources)Tendinitis of right posterior tibial tendon; Translations: [Posterior tibial tendinitis, right leg]Onset: 674305-43-1353QcuamkpsDfnpr connective tissue disease (12 sources)Pain in lower limb; Translations: [Pain in right leg]Onset: 224556-86-4075DmkesteyBwcxy gastrointestinal disorders (20 sources)Slow transit constipation; Translations: [Slow transit constipation] Onset: 267611-59-4132SpcnlifiJxgwh gastrointestinal disorders (20 sources)Heartburn; Translations: [Heartburn]Onset: EpisodicOther gastrointestinal disorders (20 sources)Constipation; Translations: [Constipation, unspecified]Onset: 04-09-2023 Resolved: 458411-87-3307QenknriaThhlv hematologic conditions (20 sources)ESR raised; Translations: [Elevated erythrocyte sedimentation rate] Onset: 287967-89-0909IndyxtefGiiwb injuries and conditions due to external causes (20 sources)Contusion; Translations: [Other injury of unspecified body region, initial encounter]Onset: 07-15-2014 Resolved: 413075-17-4092SoauddqkUsgvu lower respiratory disease (20 sources)Nodule of lung; Translations: [Solitary pulmonary nodule]Onset: 94-00-6866ZngsppydFqqdp lower respiratory disease (20 sources)Solitary nodule of lung; Translations: [Solitary pulmonary nodule] Onset: 082376-97-4134SrmoruqqEfmrk lower respiratory disease (20 sources)Dyspnea; Translations: [Dyspnea, unspecified]Onset: 08-30-2013 92-45-0464KssnzzxhGnopt lower respiratory disease (20 sources)Orthopnea; Translations: [Orthopnea]Onset: EpisodicOther lower respiratory disease (20 sources)Snoring; Translations: [Snoring]Onset: 268938-79-7601Vocusyka Other lower respiratory disease (2 sources)Dyspnea on exertion; Translations: [Other forms of dyspnea]04-26-2024 EpisodicOther lower respiratory disease (1 source)Solitary pulmonary nodule; Translations: [Solitary pulmonary nodule] Onset: 86-20-0313GozsjfjpHnigk nervous system disorders (20 sources)Paresthesia; Translations: [Paresthesia of skin]Onset: 04-09-2023 68-13-1190OxgegvhbOeaud non-traumatic joint disorders (10 sources)Hip pain; Translations: [Pain in unspecified hip]Onset: 09-04-2011 Resolved: 12-40-8045SsjvckxxIfcga nutritional; endocrine; and metabolic disorders (20 sources)Obese class I; Translations: [Obesity, unspecified]Onset: 08-10-2018 Resolved: 975654-81-0356JmndrouWrrkj upper respiratory infections (20 sources)Sinusitis; Translations: [Chronic sinusitis, unspecified]Onset: 04-09-2023 Resolved: 594531-02-1096HdigkjgAityxudre (except that caused by tuberculosis or sexually transmitted disease) (20 sources)Pneumonia, unspecified organism; Translations: [Community acquired pneumonia]Onset: 10-30-2022 Resolved: 68-13-2012YdsendmoLogqxzph codes; unclassified (2 sources)Edema of lower extremity; Translations: [Lower extremity edema] EpisodicResidual codes; unclassified (20 sources)Insomnia; Translations: [Insomnia, unspecified]Onset: 01-19-2023 59-80-8252EbwejsuaSrxl and subcutaneous tissue infections (20 sources)Cellulitis of left lower limb; Translations: [Cellulitis of left lower limb]Onset: 01-18-2022 Resolved: 12-22-5261KfawgcnyXxjmbnfjwox; intervertebral disc disorders; other back problems (20 sources)Sciatica; Translations: [Sciatica, left side]Onset: 04-09-2023 24-38-8508SgafswspGulaovbeukd injury; contusion (20 sources)Contusion of upper limb; Translations: [Contusion of left upper arm, initial encounter]Onset: 11-04-2022 Resolved: 19-19-1420WjptcsxcCbaxurckuexf (1 source)Aneurysm of the ascending aorta, without rupture; Translations: [Aneurysm of the ascending aorta, without rupture]Onset: 39-01-5394Edemzvlgqbvr (5 sources)Peripheral artery fuzqptm05-90-4295Fqddekh tract infections (20 sources)Acute cystitis; Translations: [Acute cystitis without hematuria] Onset: 03-21-2024 Resolved: 437935-68-6394Mtxjqdss Results Test NameValueInterpretationReference RangeFacilityUS ANKLE/BRACHIAL INDICES EXTREMITY LIMITEDon 41-24-3804PZ ANKLE/BRACHIAL INDICES EXTREMITY LIMITEDPatient Info Name: Tristin Powell Age: 85 years : 1940 Gender: Male Exam Date: 06/05/2025 1:16 PM Patient Status: OUTPATIENT Site Location: Indications I73.9 - PVD (peripheral vascular disease) Procedure Description 07345 Limited bilateral noninvasive physiologic studies of upper or lower extremity arteries with bidirectional Doppler/PVR waveform analysis at 1-2 levels. Insurance Agent: Ginette Gonzalez RDMS, RVS Staff Ordering Provider: [...] to amputation. * Previous YAMILE done at [place]- Right: 0.96 Left: 0.57. Recommendations * This [...] Segmental BP RIGHT Brachial A [facility] RIGHT SENIOR BIOINFORMATICS SPECIALIST mmH RIGHT SENIOR BIOINFORMATICS SPECIALIST Index: 0.90 RIGHT DPA mm[facility] RIGHT DPA Index: 0.80 RIGHT YAMILE Index: 0.90 LEFT Brachial A mm[facility] LEFT SENIOR BIOINFORMATICS SPECIALIST Index: 0.65 LEFT SENIOR BIOINFORMATICS SPECIALIST mm[facility] LEFT DPA Index: 0.80 LEFT DPA mm[facility] LEFT YAMILE Index: 0.80 Doppler RIGHT SENIOR BIOINFORMATICS SPECIALIST Waveform: Multiphasic RIGHT DPA Waveform: Multiphasic LEFT SENIOR BIOINFORMATICS SPECIALIST Waveform: Multiphasic LEFT DPA Waveform: Multiphasic , PVR RIGHT Ankle Grade: Abnormal RIGHT Transmetarsal Grade: Abnormal RIGHT Digit (PPG) Grade: Abnormal LEFT Ankle Grade: Abnormal Prior Interventions 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 Report Signatures Finalized by Eliud Cervantes MD on 06/05/2025 02:48 [facility] ANKLE/BRACHIAL INDICES EXTREMITY LIMITEDPatient Info Name: Tristin Powell Age: 85 years : 1940 Gender: Male Exam Date: 06/05/2025 1:16 PM Patient Status: OUTPATIENT Site Location: Indications I73.9 - PVD (peripheral vascular disease) Procedure Description 18233 Limited bilateral noninvasive physiologic studies of upper or lower extremity arteries with bidirectional Doppler/PVR waveform analysis at 1-2 levels. Insurance Agent: Ginette Gonzalez RDMS, RVS Staff Ordering Provider: [...] to amputation. * Previous YAMILE done at [place]- Right: 0.96 Left: 0.57. Recommendations * This [...] Segmental BP RIGHT Brachial A mm[facility] RIGHT SENIOR BIOINFORMATICS SPECIALIST mmH RIGHT SENIOR BIOINFORMATICS SPECIALIST Index: 0.90 RIGHT DPA mm[facility] RIGHT DPA Index: 0.80 RIGHT YAMILE Index: 0.90 LEFT Brachial A mm[facility] LEFT SENIOR BIOINFORMATICS SPECIALIST Index: 0.65 LEFT SENIOR BIOINFORMATICS SPECIALIST mm[facility] LEFT DPA Index: 0.80 LEFT DPA mmH LEFT YAMILE Index: 0.80 Doppler RIGHT SENIOR BIOINFORMATICS SPECIALIST Waveform: Multiphasic RIGHT DPA Waveform: Multiphasic LEFT SENIOR BIOINFORMATICS SPECIALIST Waveform: Multiphasic LEFT DPA Waveform: Multiphasic [...] on Prerna Jun 05, 2025 2:48:58 PM EDTNoGreene Memorial HospitalATININEon 60-69-8207Qrpmvjqavm [Mass/Vol]0.77 mg/dLNormal0.70-1.30 [facility] DaytonComment on above:Performed By: #### HH #### [facility] (DEFAULT) [address] [address]OIJ/1.73 sq M.predicted among non-blacks MDRD (S/P/Bld) [Vol rate/Area]87 mL/min/{1.73_m2}Normal>=60Access Hospital DaytonComment on above:Result Comment: Reported eGFR is based on the CKD-EPI 2020 equation using creatinine, age, and sex.Performed By: #### HH #### [facility] (DEFAULT) [address] [place] [address] 469[address]Zcodqvmtlp - Chemistry and Chemistry - challengeon 05-13-2025 Creatinine [Mass/Vol]0.77 mg/dL0.70 - 1.30 mg/dLRegency Hospital ToledoNo Panel Informationon 10-00-9023dZAR, CKD-EPI, Male87- PINFayette County Memorial HospitalComment on above:Reported eGFR is based on the CKD-EPI 2020 equation using creatinine, age, and sex.Interpretation and review of laboratory resultsNormal [facility] ToledoOSMercy HealthBacteria identified Respiratory culture Nom (Unsp spec)Ordered By: Jacinta Ramirez on 05-12-2025 Bacteria identified Cx Nom (Unsp spec)GrowthOSU White HospitalBacteria identified Cx Nom (Unsp spec)Moderate Growth Common oropharyngeal microbesOSMercy HealthMicroscopic observation Other stain Nom (Unsp spec) Neutrophils, RareOSMercy HealthMicroscopic observation Other stain Nom (Unsp spec)Contaminating bacteria and epithelials, LIGHTOSMercy HealthMicroscopic observation Other stain Nom (Unsp spec)Specimen is of very poor quality and results may be compromised suggest recollection if clinically i ndicatedOSU White HospitalOSMercy HealthCBC AND ELECTRONIC DIFFon 11-29-8993Qcc Baso Auto<Normal0.00-0.09Access Hospital DaytonComment on above:Performed By: #### [id number] #### [facility] (DEFAULT) [address] [place], [place] [address]Kbudrbmzb/100 WBC (Bld)0.2 %NormalAccess Hospital DaytonComment on above:Performed By: #### [id number] #### [facility] (DEFAULT) [address] [place] [address]72[address]EOWP STATUSElectronic DifferentialNormalOhio Metrohealth Parma Medical CenterComment on above:Performed By: #### [id number] #### [facility] (DEFAULT) [address] [place] [address] 34809Xvzfppkrkus (Bld) [#/Vol]0.05 10*3/uLNormal0.00-0.48[facility] Hospital DaytonComment on above:Performed By: #### [id number] #### [facility] (DEFAULT) [address] [place] [address]66[address]Wfpjbjomiii/100 WBC (Bld)0.9 %[facility] Medical CenterComment on above:Performed By: #### [id number] #### [facility] (DEFAULT) [address] [place] [address] 57919Chsgfyhhlc (Bld) [Volume fraction]29.7 %Low39.6-48.8Access Hospital DaytonComment on above:Performed By: #### [id number] #### [facility] (DEFAULT) [address] [place] [address] 02531Zfzoreqlgv (Bld) [Mass/Vol]10.0 g/dLLow13.4-16.8[facility] Hospital DaytonComment on above:Performed By: #### [id number] #### [facility] (DEFAULT) [address] [place] [address]35[address]Jlwhjhja Grans %1.8 %[facility] CenterComment on above:Performed By: #### [id number] #### [facility] (DEFAULT) [address] [place] [address] 28200Dgvavcsg Grans Absolute0.10 K/uLHigh<=0.07[facility] Hospital DaytonComment on above:Performed By: #### [id number] #### [facility] (DEFAULT) [address] [place] [address] 77644Rpeaczgvxol (Bld) [#/Vol]0.59 10*3/uLLow0.83-3.57[facility] Hospital DaytonComment on above:Performed By: #### [id number] #### [facility] (DEFAULT) [address] [place] [address] 89713Csitgjebllm/100 WBC (Bld)10.7 %NormalAccess Hospital DaytonComment on above:Performed By: #### [id number] #### [facility] (DEFAULT) [address] [place] [address] 12163CCH (RBC) [Entitic vol]92.0 sWLfmsns66.0-94.5Access Hospital DaytonComment on above:Performed By: #### [id number] #### [facility] (DEFAULT) [address] [place] [address] 79557Wtks Cell Hgb31.0 hoIpwtxz35.1-33.3[facility] Hospital DaytonComment on above:Performed By: #### [id number] #### [facility] (DEFAULT) [address] [place] [address] 47356Phcg Cell Hgb Conc33.7 g/qDEofnxj60.9-36.5Access Hospital DaytonComment on above:Performed By: #### [id number] #### [facility] (DEFAULT) [address] [place] [address] 60408Sgejwnahe (Bld) [#/Vol]0.49 10*3/uLNormal0.24-0.93[facility] Hospital DaytonComment on above:Performed By: #### [id number] #### [facility] (DEFAULT) [address] [place] [address] 68342Lzbwksxed/100 WBC (Bld)8.9 %[facility] CenterComment on above:Performed By: #### [id number] #### [facility] (DEFAULT) [address] [place] [address] 76542Vziulvjwh RBC0.0 /100 WBCNormal<=0.2[facility] Hospital DaytonComment on above:Performed By: #### [id number] #### [facility] (DEFAULT) [address] [place] [address] 10391Kprvjvpk mean volume (Bld) [Entitic vol]9.4 fLNormal8.7-12.3 [facility] DaytonComment on above:Performed By: #### [id number] #### [facility] (DEFAULT) [address] [place] [address] 99811Rewlaymlc (Bld) [#/Vol]215 10*3/uSRvfqlz237-006InpoAccess Hospital DaytonComment on above:Performed By: #### [id number] #### [facility] (DEFAULT) [address] [place] [address] 93753IRS (Bld) [#/Vol]3.23 10*6/uLLow4.38-5.83[facility] Hospital DaytonComment on above:Performed By: #### [id number] #### [facility] (DEFAULT) [address] [place] [address] 64[address]LMX Axlbcljtgnvw20.5 %High10.9-14.3[facility] Hospital DaytonComment on above:Performed By: #### [id number] #### [facility] (DEFAULT) [address] [place] [address] 54174Azah + Bands Auto77.5 %NormalAccess Hospital DaytonComment on above:Performed By: #### [id number] #### [facility] (DEFAULT) [address] [place] [address] 68681Boqb + Bands,Absolute Auto4.28 K/uLNormal1.57-6.19[facility] Hospital DaytonComment on above:Performed By: #### [id number] #### [facility] (DEFAULT) [address] [place] [address] 92547DFR (Bld) [#/Vol]5.52 10*3/uLNormal3.73-10.10[facility] Hospital DaytonComment on above:Performed By: #### [id number] #### [facility] (DEFAULT) [address] [address]BJXMFLYYWQsw 67-23-9971Yvukjnfkyt [Mass/Vol]0.78 mg/dLNormal 0.70-1.30[facility] Hospital DaytonComment on above:Performed By: #### CREAB #### [facility] (DEFAULT) [address] [address]LHW/1.73 sq M.predicted among non-blacks MDRD (S/P/Bld) [Vol rate/Area]87 mL/min/{1.73_m2}Normal>=60[facility] DaytonComment on above:Result Comment: Reported eGFR is based on the CKD-EPI 2020 equation using creatinine, age, and sex.Performed By: #### CREAB #### [facility] (DEFAULT) [address] [address]Zyerwqrtjw - Chemistry and Chemistry - challengeon 05-12-2025 Creatinine [Mass/Vol]0.78 mg/dL0.70 - 1.30 mg/dLRegency Hospital [facility]edo Laboratory - Hematology and Cell countson 51-82-4138Nxehmlbfg (Bld) [#/Vol]K/uL 0.00 - 0.09 K/uLOSMercy HealthBasophils/100 WBC (Bld)0.2 %[facility] ToledoDifferential cell count method Nom (Bld)Electronic DifferentialOSMercy HealthEosinophils (Bld) [#/Vol]0.05 10*3/uL0.00 - 0.48 K/uLRegency Hospital ToledoEosinophils/100 WBC (Bld)0.9 %[facility] Erythrocyte distribution width (RBC) [Ratio]14.5 %High10.9 - 14.3 %[facility] ToledoHematocrit (Bld) [Volume fraction]29.7 %Low39.6 - 48.8 %[facility] ToledoHemoglobin (Bld) [Mass/Vol]10.0 g/dLLow13.4 - 16.8 g/dLRegency Hospital ToledoImmature granulocytes (Bld) [#/Vol]0.10 10*3/uLHighNINF - 0.07 K/uLRegency Hospital ToledoImmature granulocytes/100 WBC (Bld)1.8 %[facility] ToledoLymphocytes (Bld) [#/Vol]0.59 10*3/uLLow0.83 - 3.57 K/uLRegency Hospital ToledoLymphocytes/100 WBC (Bld)10.7 %[facility] HospitalH (RBC) [Entitic mass]31.0 pg26.1 - 33.3 pgRegency Hospital ToledoMCHC (RBC) [Mass/Vol]33.7 g/dL31.9 - 36.5 g/dLRegency Hospital ToledoMCV (RBC) [Entitic vol]92.0 fL79.0 - 94.5 [facility] HospitalMonocytes (Bld) [#/Vol]0.49 10*3/uL0.24 - 0.93 K/[facility] HospitalMonocytes/100 WBC (Bld)8.9 %[facility] ToledoNeutrophils (Bld) [#/Vol]4.28 10*3/uL1.57 - 6.19 K/[facility] HospitalNucleated RBC/100 WBC (Bld) [Ratio]0.0 %[facility] HospitalPlatelet mean volume (Bld) [Entitic vol]9.4 fL8.7 - 12.3 [facility] HospitalPlatelets (Bld) [#/Vol]215 10*3/uL146 - 337 K/[facility] HospitalRBC (Bld) [#/Vol]3.23 10*6/uLLowMiami Valley Hospitalegmented neutrophils/100 WBC (Bld)77.5 %[facility] ToledoWBC (Bld) [#/Vol]5.52 10*3/uL3.73 - 10.10 K/[facility] HospitalNo Panel Informationon 25-14-2920SAG/RH(D) TYPEPositiveMiami Valley Hospitalpecimen Expiration 05/15/2025 23:59[facility] HospitaleGFR, CKD-EPI, Male87- PINFORegency Hospital Cleveland EastComment on above:Reported eGFR is based on the CKD-EPI 2020 equation using creatinine, age, and sex.Interpretation and review of laboratory resultsVictor Valley HospitalInterpretation and review of laboratory resultsAbnoChildren's Hospital of San DiegoTYPE AND SCREENon 15-36-6014CZC/RH(D) TYPE PositiveOhio State University Wexner Medical CenterComment on above: Performed By: #### XM #### [facility] (DEFAULT) [address] [place] [address] 05349Fdaskwdo Ssioinkwqu71/18/2025 23:59[facility] Medical CenterComment on above:Performed By: #### XM #### [facility] (DEFAULT) [address] [place] [address] 66012LVV AND ELECTRONIC DIFFon 10-06-6492Ktp Baso Auto<Normal 0.00-0.09[facility] Hospital DaytonComment on above:Performed By: #### HH #### [facility] (DEFAULT) [address] [place] [address] 109[address]Cbozvwteb/100 WBC (Bld)0.2 %NormalAccess Hospital DaytonComment on above:Performed By: #### HH #### [facility] (DEFAULT) [address] [place] [address] 234[address]IGKY STATUSElectronic DifferentialNoAdams County HospitalComment on above:Performed By: #### HH #### [facility] (DEFAULT) [address] [place] [address] 18662Zqgrjpfocvp (Bld) [#/Vol]0.07 10*3/uLNormal0.00-0.48Access Hospital DaytonComment on above:Performed By: #### HH #### [facility] (DEFAULT) [address] [place] [address] 01341Uacxyufmbut/100 WBC (Bld)1.1 %[facility] Medical CenterComment on above:Performed By: #### HH #### [facility] (DEFAULT) [address] [place] [address] 84765Tfuhiicmvm (Bld) [Volume fraction]33.7 %Low39.6-48.8Access Hospital DaytonComment on above:Performed By: #### HH #### [facility] (DEFAULT) [address] [address]Llptwluliu (Bld) [Mass/Vol]11.1 g/dLLow13.4-16.8Access Hospital DaytonComment on above:Result Comment: Warmed to 37C Performed By: #### HH #### [facility] (DEFAULT) [address] [place] [address] 17443Giyanyda Grans %2.5 %[facility] Medical CenterComment on above:Performed By: #### HH #### [facility] (DEFAULT) [address] [place] [address] 29959Dfzkquty Grans Absolute0.16 K/uLHigh<=0.07Access Hospital DaytonComment on above:Performed By: #### HH #### [facility] (DEFAULT) [address] [place] [address] 42663Gomfawcdlej (Bld) [#/Vol]0.75 10*3/uLLow0.83-3.57Access Hospital DaytonComment on above:Performed By: #### HH #### [facility] (DEFAULT) [address] [address]Zpkzpcpjczg/100 WBC (Bld)11.5 %[facility] CenterComment on above:Performed By: #### HH #### [facility] (DEFAULT) [address] [place] [address] 26788PLU (RBC) [Entitic vol]89.9 hKVqwdxu58.0-94.5Access Hospital DaytonComment on above:Result Comment: Warmed to 37C Performed By: #### HH #### [facility] (DEFAULT) [address] [place] [address] 61810Klhe Cell Hgb29.6 bbMdhhdh59.1-33.3Access Hospital DaytonComment on above:Result Comment: Warmed to 37CPerformed By: #### HH #### [facility] (DEFAULT) [address] [place] [address] 33590Nlao Cell Hgb Conc32.9 g/fUVxfskg23.9-36.5Access Hospital DaytonComment on above:Result Comment: Warmed to 37C Performed By: #### HH #### [facility] (DEFAULT) [address] [place] [address] 28226Ctluvgbxh (Bld) [#/Vol]0.63 10*3/uLNormal0.24-0.93Access Hospital DaytonComment on above:Performed By: #### HH #### [facility] (DEFAULT) [address] [place] [address] 53433Yetfnkpru/100 WBC (Bld)9.7 %NormalAccess Hospital DaytonComment on above:Performed By: #### HH #### [facility] (DEFAULT) [address] [place] [address] 36434Lvghrydre RBC0.0 /100 WBCNormal<=0.2Access Hospital DaytonComment on above:Performed By: #### HH #### [facility] (DEFAULT) [address] [place] [address] 70280Esipkrcv mean volume (Bld) [Entitic vol]9.9 fLNormal8.7-12.3 Access Hospital DaytonComment on above:Performed By: #### HH #### [facility] (DEFAULT) [address] [place] [address] 37056Zpurfggmu (Bld) [#/Vol]211 10*3/lDPispes915-398KiueAccess Hospital DaytonComment on above:Performed By: #### HH #### [facility] (DEFAULT) [address] [place] [address] 32145RUU (Bld) [#/Vol]3.75 10*6/uLLow4.38-5.83Access Hospital DaytonComment on above:Result Comment: Warmed to 37CPerformed By: #### HH #### [facility] (DEFAULT) [address] [place] [address] 79505WWE Fjobauirlrox99.5 %High10.9-14.3Access Hospital DaytonComment on above:Performed By: #### HH #### [facility] (DEFAULT) [address] [place] [address] 24523Vmko + Bands Auto75.0 %NormalAccess Hospital DaytonComment on above:Performed By: #### HH #### [facility] (DEFAULT) [address] [place] [address] 24777Dxoo + Bands,Absolute Auto4.88 K/uLNormal1.57-6.19Access Hospital DaytonComment on above:Performed By: #### HH #### [facility] (DEFAULT) [address] [place] [address] 13994ESF (Bld) [#/Vol]6.50 10*3/uLNormal3.73-10.10Access Hospital DaytonComment on above:Performed By: #### HH #### [facility] (DEFAULT) [address] [place] [address] 54358ZCVH 6 (LYTES, BUN CREA)on 32-17-5781Sniwt gap [Moles/Vol]14 mmol/LNormal7-17Access Hospital DaytonComment on above: Performed By: #### HH #### [facility] (DEFAULT) [address] [place] [address] 94336Msdclhss [Moles/Vol]106 mmol/QDwolek58-811MferAccess Hospital DaytonComment on above:Performed By: #### HH #### [facility] (DEFAULT) [address] [place] [address] 16606MB4 [Moles/Vol]22 mmol/QGgfpkr10-04ZadsAccess Hospital DaytonComment on above:Performed By: #### HH #### [facility] (DEFAULT) [address] [place] [address] 62101Tulhfgcrbn [Mass/Vol]0.89 mg/dLNormal0.70-1.30Access Hospital DaytonComment on above:Performed By: #### HH #### [facility] (DEFAULT) [address] [place] [address] 32840GJP/1.73 sq M.predicted among non-blacks MDRD (S/P/Bld) [Vol rate/Area]83 mL/min/{1.73_m2}Normal>=60Access Hospital DaytonComment on above:Result Comment: Reported eGFR is based on the CKD-EPI 2020 equation using creatinine, age, and sex.Performed By: #### HH #### [facility] (DEFAULT) [address] [place] [address] 07006Rhlayurlv [Moles/Vol]3.6 mmol/LNormal3.5-5.0Access Hospital DaytonComment on above:Performed By: #### HH #### [facility] (DEFAULT) [address] [place] [address] 22339Ajyxxs [Moles/Vol]138 mmol/JPiccof796-940WgjiAccess Hospital DaytonComment on above:Performed By: #### HH #### [facility] (DEFAULT) [address] [place] [address] 47279Netl nitrogen [Mass/Vol]20 mg/dLNormal7-25Access Hospital DaytonComment on above:Performed By: #### HH #### [facility] (DEFAULT) [address] [place] [address] 42676Svhv nitrogen/Creatinine [Mass ratio]22 mg/mgNormalOhio Metrohealth Parma Medical CenterComment on above:Performed By: #### HH #### [facility] (DEFAULT) [address] [place] [address] 05283WOBCQCA FUNCTION PANELon 23-32-2150Nudaxct [Mass/Vol]3.3 g/dL Low3.5-5.0Access Hospital DaytonComment on above:Performed By: #### HH #### [facility] (DEFAULT) [address] [place] [address] 63298APV [Catalytic activity/Vol]72 U/UXkjgey38-272CfsnAccess Hospital DaytonComment on above:Performed By: #### HH #### [facility] (DEFAULT) [address] [place] [address] 62641BML [Catalytic activity/Vol]99 U/VDxog26-65HwigAccess Hospital DaytonComment on above:Performed By: #### HH #### [facility] (DEFAULT) [address] [place] [address] 87759VKT [Catalytic activity/Vol]34 U/COjavwo13-01HbyfAccess Hospital DaytonComment on above:Performed By: #### HH #### [facility] (DEFAULT) [address] [place] [address] 92878Anefgrhjp [Mass/Vol]0.6 mg/dLNormal<1.5OhCommunity Regional Medical CenterComment on above:Performed By: #### HH #### [facility] (DEFAULT) [address] [place] [address] 96536Bjvfvmvoh.indirect [Mass/Vol]0.2 mg/dLNormal<0.3Access Hospital DaytonComment on above:Performed By: #### HH #### [facility] (DEFAULT) [address] [place] [address] 90543Antifva [Mass/Vol]6.3 g/dLLow6.4-8.3Access Hospital DaytonComment on above:Performed By: #### HH #### [facility] (DEFAULT) [address] [address]Imubsegprk - Chemistry and Chemistry - challengeon 05-11-2025 Albumin [Mass/Vol]3.3 g/dLLow3.5 - 5.0 g/dLOSU White HospitalALP [Catalytic activity/Vol]72 U/L32 - 126 U/[facility] WestALT [Catalytic activity/Vol]99 U/LHigh10 - 52 U/[facility] - WestAnion gap [Moles/Vol]14 mmol/L7 - 17 mmol/[facility] WestAST [Catalytic activity/Vol]34 U/L10 - 39 U/[facility] - WestBilirubin [Mass/Vol]0.6 mg/dLNINF - 1.5 mg/dLOSU White HospitalBilirubin.direct [Mass/Vol]0.2 mg/dLNINF - 0.3 mg/dLOSMercy HealthChloride [Moles/Vol]106 mmol/L98 - 108 mmol/[facility] - WestCO2 [Moles/Vol]22 mmol/L21 - 31 mmol/[facility] - WestCreatinine [Mass/Vol]0.89 mg/dL0.70 - 1.30 mg/dLRegency Hospital ToledoPotassium [Moles/Vol]3.6 mmol/L3.5 - 5.0 mmol/[facility] - WestProtein [Mass/Vol]6.3 g/dLLow6.4 - 8.3 g/dLMiami Valley Hospitalodium [Moles/Vol]138 mmol/L135 - 145 mmol/[facility] - WestUrea nitrogen [Mass/Vol]20 mg/dL7 - 25 mg/dLRegency Hospital ToledoUrea nitrogen/Creatinine [Mass ratio]22 mg/mgOSMercy HealthLaboratory - Hematology and Cell countson 30-24-2643Wzcgpckfk (Bld) [#/Vol]K/uL0.00 - 0.09 K/uLRegency Hospital ToledoBasophils/100 WBC (Bld)0.2 %[facility]edoDifferential cell count method Nom (Bld)Electronic DifferentialRegency Hospital [facility] Eosinophils (Bld) [#/Vol]0.07 10*3/uL0.00 - 0.48 K/[facility] Eosinophils/100 WBC (Bld)1.1 %OSMercy HealthErythrocyte distribution width (RBC) [Ratio]14.5 %High10.9 - 14.3 %[facility]edoHematocrit (Bld) [Volume fraction]33.7 %Low39.6 - 48.8 %[facility]edoHemoglobin (Bld) [Mass/Vol]11.1 g/dLLow13.4 - 16.8 g/dLRegency Hospital ToledoComment on above:Warmed to 37CImmature granulocytes (Bld) [#/Vol]0.16 10*3/uLHighNINF - 0.07 K/[facility] HospitalImmature granulocytes/100 WBC (Bld)2.5 %[facility]edoLymphocytes (Bld) [#/Vol]0.75 10*3/uLLow0.83 - 3.57 K/[facility] HospitalLymphocytes/100 WBC (Bld)11.5 %[facility] MCH (RBC) [Entitic mass]29.6 pg26.1 - 33.3 pgRegency Hospital ToledoComment on above:Warmed to 37CMCHC (RBC) [Mass/Vol]32.9 g/dL31.9 - 36.5 g/dLRegency Hospital ToledoComment on above:Warmed to 37CMCV (RBC) [Entitic vol]89.9 fL79.0 - 94.5 Parkwood HospitalComment on above:Warmed to 37CMonocytes (Bld) [#/Vol]0.63 10*3/uL0.24 - 0.93 /[facility] HospitalMonocytes/100 WBC (Bld)9.7 %[facility]edoNeutrophils (Bld) [#/Vol]4.88 10*3/uL1.57 - 6.19 K/uLRegency Hospital ToledoNucleated RBC/100 WBC (Bld) [Ratio]0.0 %NINF [facility]edoPlatelet mean volume (Bld) [Entitic vol]9.9 fL8.7 - 12.3 Parkwood HospitalPlatelets (Bld) [#/Vol]211 10*3/uL146 - 337 K/uL [facility]edoRBC (Bld) [#/Vol]3.75 10*6/uLLowRegency Hospital ToledoComment on above:Warmed to 37CSegmented neutrophils/100 WBC (Bld)75.0 %[facility]edoWBC (Bld) [#/Vol]6.50 10*3/uL3.73 - 10.10 K/uLRegency Hospital ToledoNo Panel Informationon 30-51-5271Uvhrdcejkbzofc and review of laboratory resultsAbAnaheim Regional Medical Center eGFR, CKD-EPI, Male83- Wilson HealthComment on above:Reported eGFR is based on the CKD-EPI 2020 equation using creatinine, age, and sex. Interpretation and review of laboratory resultsAbEmanate Health/Inter-community HospitalC REACTIVE PROTEINon 36-31-2550JSY [Mass/Vol]37.48 mg/L High<10.00Access Hospital DaytonComment on above:Performed By: #### HH #### [facility] (DEFAULT) [address] [place], [place] [address]XEJDPGYNJXoa 23-34-2600Asnhifjsxh [Mass/Vol]0.85 mg/dLNormal 0.70-1.30Access Hospital DaytonComment on above:Performed By: #### HH #### [facility] (DEFAULT) [address] [place], [place] [address]WWY/1.73 sq M.predicted among non-blacks MDRD (S/P/Bld) [Vol rate/Area]85 mL/min/{1.73_m2}Normal>=60Access Hospital DaytonComment on above:Result Comment: Reported eGFR is based on the CKD-EPI 2020 equation using creatinine, age, and sex.Performed By: #### HH #### [facility] (DEFAULT) [address] [place] [address] 91721YAYARAELSV & HEMATOCRITon 87-48-3373Plmdokfady (Bld) [Volume fraction]34.5 %Low39.6-48.8Access Hospital DaytonComment on above:Performed By: #### HH #### [facility] (DEFAULT) [address] [place] [address] 56451Jbfkyxiabm (Bld) [Mass/Vol]11.0 g/dLLow13.4-16.8Access Hospital DaytonComment on above:Result Comment: Warmed to 37C Performed By: #### HH #### [facility] (DEFAULT) [address] [place] [address] 77436OIABV RESPIRATORY CULTURE, BACTERIALon 22-97-6318Cpbwydom identified Cx Nom (Unsp spec)[facility] Comment on above:Result Comment: Growth 4471 Moderate Growth Common oropharyngeal microbesPerformed By: #### RES #### [facility] (DEFAULT) [address] [place] [address] 35468Nstrajvunoo observation Gram stain Nom (Unsp spec)[facility] Medical CenterComment on above:Result Comment: Neutrophils, Rare Contaminating bacteria and epithelials, LIGHT Specimen is of very poor quality and results may be compromised suggest recollection if clinically indicatedPerformed By: #### RES #### [facility] (DEFAULT) [address] [place] [address] 98299Mwkotzstmh - Chemistry and Chemistry - challengeon 05-10-2025 Creatinine [Mass/Vol]0.85 mg/dL0.70 - 1.30 mg/dLOSU White HospitalCRP High sensitivity method [Mass/Vol]37.48 mg/LHighNINF - 10.00 mg/LOSU White HospitalLaboratory - Drug toxicologyon 41-64-5500Ndpfdzkkah trough [Mass/Vol]13.9 ug/mLRegency Hospital ToledoLaboratory - Hematology and Cell countson 72-61-7649Jcalfrdoxx (Bld) [Volume fraction]34.5 %Low39.6 - 48.8 %[facility]edoHemoglobin (Bld) [Mass/Vol]11.0 g/dLLow13.4 - 16.8 g/dLRegency Hospital ToledoComment on above:Warmed to 37CESR (Bld) [Velocity]120 mm/h HighNINFRegency Hospital ToledoNo Panel Informationon 69-16-2919Lsbudddmmqplie and review of laboratory resultsAbAnaheim Regional Medical CenterInterpretation and review of laboratory resultsNoChildren's Hospital of San DiegoInterpretation and review of laboratory resultsAbAnaheim Regional Medical CentereGFR, CKD-EPI, Male85- PINFayette County Memorial HospitalComment on above:Reported eGFR is based on the CKD-EPI 2020 equation using creatinine, age, and sex.Interpretation and review of laboratory resultsAbMercy Health Lorain HospitalInterpretation and review of laboratory resultsEnloe Medical CenterEDIMENTATION RATE, AUTOMATEDon 83-12-2995NAO Trwmaoltxw931 mm/hrHigh<30 Access Hospital DaytonComment on above:Performed By: #### HH #### [facility] (DEFAULT) [address] [address]KRDQHFISRL LEVEL, TROUGH (PRE DRUG LEVEL)on 05-10-2025 Vancomycin, Sngbbw80.9 mcg/mLNormalTherapeutic Range: 10.0-20.0 mcg/mLAccess Hospital DaytonComment on above:Order Comment: Please draw level at specified interval PRIOR to next dose.Performed By: #### HEP3B #### [facility] (DEFAULT) [address] [place] [address] 64804XJMKOZPja 66-71-9893Xwjsmww [Mass/Vol]9.1 mg/dLNormal8.6-10.5 Access Hospital DaytonComment on above:Performed By: #### MGO, HFP, CA, CHM7, IPB #### [facility] (DEFAULT) [address] [place] [address] 09339JMA AND ELECTRONIC DIFFon 66-17-2861Lvy Baso Auto<Normal 0.00-0.09Access Hospital DaytonComment on above:Performed By: #### HH #### [facility] (DEFAULT) [address] [place] [address] 67971Kwr Eos Auto<Normal0.00-0.48Access Hospital DaytonComment on above:Performed By: #### HH #### [facility] (DEFAULT) [address] [place] [address] 73483Swelzdsey/100 WBC (Bld)0.2 %[facility] CenterComment on above:Performed By: #### HH #### [facility] (DEFAULT) [address] [place] [address] 76474WNAL STATUSElectronic DifferentialNormalOUniversity Hospitals Health SystemComment on above:Performed By: #### HH #### [facility] (DEFAULT) [address] [place] [address] 13110Dfynghyaisp/100 WBC (Bld)0.2 %[facility] CenterComment on above:Performed By: #### HH #### [facility] (DEFAULT) [address] [place] [address] 92193Qrcchvpkgd (Bld) [Volume fraction]33.0 %Low39.6-48.8Access Hospital DaytonComment on above:Performed By: #### HH #### [facility] (DEFAULT) [address] [place] [address] 32952Elanphqayn (Bld) [Mass/Vol]10.9 g/dLLow13.4-16.8Access Hospital DaytonComment on above:Performed By: #### HH #### [facility] (DEFAULT) [address] [place] [address] 66307Azgxfgsk Grans %1.4 %NormalAccess Hospital DaytonComment on above:Performed By: #### HH #### [facility] (DEFAULT) [address] [place] [address] 44551Aqwbefkd Grans Absolute0.09 K/uLHigh<=0.07Access Hospital DaytonComment on above:Performed By: #### HH #### [facility] (DEFAULT) [address] [place] [address] 26318Qgwrxljmtbl (Bld) [#/Vol]0.65 10*3/uLLow0.83-3.57Access Hospital DaytonComment on above:Performed By: #### HH #### [facility] (DEFAULT) [address] [place] [address] 09449Otbacuykkal/100 WBC (Bld)10.1 %NormalAccess Hospital DaytonComment on above:Performed By: #### HH #### [facility] (DEFAULT) [address] [address]JTR (RBC) [Entitic vol]91.9 tCRrxgvu14.0-94.5Access Hospital DaytonComment on above:Performed By: #### HH #### [facility] (DEFAULT) [address] [place] [address] 88412Crnj Cell Hgb30.4 zsUkjgoo48.1-33.3Access Hospital DaytonComment on above:Performed By: #### HH #### [facility] (DEFAULT) [address] [place] [address] 87312Aiqx Cell Hgb Conc33.0 g/dQTviein36.9-36.5Access Hospital DaytonComment on above:Performed By: #### HH #### [facility] (DEFAULT) [address] [place] [address] 65601Twcekzxyv (Bld) [#/Vol]0.71 10*3/uLNormal0.24-0.93Access Hospital DaytonComment on above:Performed By: #### HH #### [facility] (DEFAULT) [address] [place] [address] 74768Qmahsmqot/100 WBC (Bld)11.1 %NormalAccess Hospital DaytonComment on above:Performed By: #### HH #### [facility] (DEFAULT) [address] [place] [address] 15948Ypklukjgh RBC0.0 /100 WBCNormal<=0.2Access Hospital DaytonComment on above:Performed By: #### HH #### [facility] (DEFAULT) [address] [place] [address] 97891Feffltrn mean volume (Bld) [Entitic vol]9.2 fLNormal8.7-12.3 Access Hospital DaytonComment on above:Performed By: #### HH #### [facility] (DEFAULT) [address] [place] [address] 18653Udlzbpbml (Bld) [#/Vol]232 10*3/bNCtclex980-484QbezAccess Hospital DaytonComment on above:Performed By: #### HH #### [facility] (DEFAULT) [address] [place] [address] 75270DQF (Bld) [#/Vol]3.59 10*6/uLLow4.38-5.83Access Hospital DaytonComment on above:Performed By: #### HH #### [facility] (DEFAULT) [address] [place] [address] 39352EKO Ngecktfaaeen79.6 %High10.9-14.3Access Hospital DaytonComment on above:Performed By: #### HH #### [facility] (DEFAULT) [address] [place] [address] 02154Skht + Bands Auto77.0 %NormalAccess Hospital DaytonComment on above:Performed By: #### HH #### [facility] (DEFAULT) [address] [place] [address] 12258Pllf + Bands,Absolute Auto4.94 K/uLNormal1.57-6.19Access Hospital DaytonComment on above:Performed By: #### HH #### [facility] (DEFAULT) [address] [place] [address] 97804GDV (Bld) [#/Vol]6.41 10*3/uLNormal3.73-10.10Access Hospital DaytonComment on above:Performed By: #### HH #### [facility] (DEFAULT) [address] [place] [address] 16059FAJV 7 (LYTES,BUN,CREA,GLUC)on 29-58-0101Rczdf gap [Moles/Vol] 14 mmol/LNormal7-17Access Hospital DaytonComment on above: Performed By: #### MGO, HFP, CA, CHM7, IPB #### [facility] (DEFAULT) [address] [place] [address] 50065Ngnwtxhb [Moles/Vol]107 mmol/ICkzfyd63-136UfvpAccess Hospital DaytonComment on above:Performed By: #### MGO, HFP, CA, CHM7, IPB #### [facility] (DEFAULT) [address] [place] [address] 20854XT8 [Moles/Vol]22 mmol/GAulanb60-75HyzuAccess Hospital DaytonComment on above:Performed By: #### MGO, HFP, CA, CHM7, IPB #### [facility] (DEFAULT) [address] [place] [address] 40229Reqaauuyyb [Mass/Vol]0.92 mg/dLNormal0.70-1.30Access Hospital DaytonComment on above:Performed By: #### MGO, HFP, CA, CHM7, IPB #### [facility] (DEFAULT) [address] [place] [address] 68396KPV/1.73 sq M.predicted among non-blacks MDRD (S/P/Bld) [Vol rate/Area]81 mL/min/{1.73_m2}Normal>=60Access Hospital DaytonComment on above:Result Comment: Reported eGFR is based on the CKD-EPI 2020 equation using creatinine, age, and sex.Performed By: #### MGO, HFP, CA, CHM7, IPB #### [facility] (DEFAULT) [address] [place] [address] 59063Wodtgxp [Mass/Vol]100 mg/dLNormalNonfastin-179 mg/dL; Fastin-99Access Hospital DaytonComment on above: Performed By: #### MGJerry, HFP, CA, CHM7, IPB #### [facility] (DEFAULT) [address] [place] [address] 36696Epqztgrgpm [Osmolality]296 mosm/meXuxwgs703-086GoeqAccess Hospital DaytonComment on above:Performed By: #### MGJerry, HFP, CA, CHM7, IPB #### [facility] (DEFAULT) [address] [place] [address] 78688Uapzkjjly [Moles/Vol]4.2 mmol/LNormal3.5-5.0Access Hospital DaytonComment on above:Performed By: #### MGO, HFP, CA, CHM7, IPB #### [facility] (DEFAULT) [address] [place] [address] 94874Ruxsge [Moles/Vol]139 mmol/WPddcqv020-215JuyjAccess Hospital DaytonComment on above:Performed By: #### MGO, HFP, CA, CHM7, IPB #### [facility] (DEFAULT) [address] [place] [address] 75577Dftx nitrogen [Mass/Vol]25 mg/dLNormal7-25Access Hospital DaytonComment on above:Performed By: #### MGO, HFP, CA, CHM7, IPB #### [facility] (DEFAULT) [address] [place] [address] 74764Uvvj nitrogen/Creatinine [Mass ratio]27 mg/mgNoAdams County HospitalComment on above:Performed By: #### MGO, HFP, CA, CHM7, IPB #### [facility] (DEFAULT) [address] [place] [address] 49400Qttdtmt hepatitis differentiation between hepatitis B and C virus panelOrdered By: Cheli Ruiz on 79-26-9401BXT core IgG+IgM Ql (S) NegativeNegativeOSU White HospitalHBV surface Ab IA Ql (S)Negative NegativeOSU White HospitalHBV surface Ag Ql (S)NegativeNegativeOSU White HospitalHCV Ab Ql (S)NegativeNegativeOSMercy Health Interpretation and review of laboratory resultsNormalOCommunity Medical CenterHEPATIC FUNCTION PANELon 50-50-8892Xqzqgly [Mass/Vol] 3.5 g/dLNormal3.5-5.0Access Hospital DaytonComment on above:Performed By: #### MGO, HFP, CA, CHM7, IPB #### [facility] (DEFAULT) [address] [place] [address] 91010XDC [Catalytic activity/Vol]79 U/MQkulnh44-532EymhAccess Hospital DaytonComment on above:Performed By: #### MGO, HFP, CA, CHM7, IPB #### [facility] (DEFAULT) [address] [place] [address] 56667CCG [Catalytic activity/Vol]180 U/SAynn02-93ZpyxAccess Hospital DaytonComment on above:Performed By: #### MGO, HFP, CA, CHM7, IPB #### [facility] (DEFAULT) [address] [place] [address] 25206KZA [Catalytic activity/Vol]125 U/LKrir41-61CfoxCommunity Regional Medical CenterComment on above:Performed By: #### MGO, HFP, CA, CHM7, IPB #### [facility] (DEFAULT) [address] [place] [address] 24190Qeqafrksj [Mass/Vol]0.7 mg/dLNormal<1.5Access Hospital DaytonComment on above:Performed By: #### MGO, HFP, CA, CHM7, IPB #### [facility] (DEFAULT) [address] [place] [address] 01753Hgfmrchub.indirect [Mass/Vol]0.1 mg/dLNormal<0.3Access Hospital DaytonComment on above:Result Comment: Specimen hemolyzed. Direct bilirubin results may be falsely decreased. Interpret within the clinical context.Performed By: #### MGO, HFP, CA, CHM7, IPB #### [facility] (DEFAULT) [address] [place] [address] 06802Axrjomq [Mass/Vol]6.6 g/dLNormal6.4-8.3Access Hospital DaytonComment on above:Performed By: #### MGO, HFP, CA, CHM7, IPB #### [facility] (DEFAULT) [address] [place] [address] 71591UKJOVLFOQ BATTERY, CHRONICon 25-91-3644Bur B Core Ab,Total (IgG+IgM)NegativeNormalNegCleveland Clinic Marymount Hospital Comment on above:Performed By: #### HEP3B #### [facility] (DEFAULT) [address] [place] [address] 92611Cxa B Surface AbNegativeNormalNegativeAccess Hospital DaytonComment on above:Performed By: #### HEP3B #### [facility] (DEFAULT) [address] [place] [id number] B Surface AgNegativeNormalNegativeAccess Hospital DaytonComment on above:Performed By: #### HEP3B #### [facility] (DEFAULT) [address] [address]Aczjogihx C AntibodyNegativeNormalNegativeAccess Hospital DaytonComment on above:Performed By: #### HEP3B #### [facility] (DEFAULT) [address] [place] [address]Cpzbkclerm - Chemistry and Chemistry - challengeon 05-09-2025 Albumin [Mass/Vol]3.5 g/dL3.5 - 5.0 g/dLOSMercy HealthALP [Catalytic activity/Vol]79 U/L32 - 126 U/[facility] WestALT [Catalytic activity/Vol]180 U/LHigh10 - 52 U/[facility] - WestAnion gap [Moles/Vol]14 mmol/L7 - 17 mmol/[facility] WestAST [Catalytic activity/Vol]125 U/LHigh10 - 39 U/[facility] - WestBilirubin [Mass/Vol] 0.7 mg/dLNINF - 1.5 mg/dLOSMercy HealthBilirubin.direct [Mass/Vol]0.1 mg/dLNINF - 0.3 mg/dLRegency Hospital ToledoComment on above:Specimen hemolyzed. Direct bilirubin results may be falsely decreased. Interpret within the clinical context.Chloride [Moles/Vol]107 mmol/L98 - 108 mmol/[facility] - WestCO2 [Moles/Vol]22 mmol/L21 - 31 mmol/[facility] Creatinine [Mass/Vol]0.92 mg/dL0.70 - 1.30 mg/dLRegency Hospital ToledoGlucose [Mass/Vol]100 mg/dL70 - 179 mg/dLRegency Hospital ToledoOsmolality Calc [Osmolality]296[facility] HospitalPhosphate [Mass/Vol]3.2 mg/dL2.2 - 4.6 mg/dLRegency Hospital ToledoPotassium [Moles/Vol]4.2 mmol/L3.5 - 5.0 mmol/[facility] - WestProtein [Mass/Vol]6.6 g/dL6.4 - 8.3 g/dLOSSelect Medical Cleveland Clinic Rehabilitation Hospital, Avonodium [Moles/Vol]139 mmol/L135 - 145 mmol/LOSU White HospitalUrea nitrogen [Mass/Vol]25 mg/dL7 - 25 mg/dLOSMercy HealthUrea nitrogen/Creatinine [Mass ratio]27 mg/mgOSMercy HealthCalcium [Mass/Vol]9.1 mg/dL8.6 - 10.5 mg/dLRegency Hospital ToledoMagnesium [Mass/Vol] 2.0 mg/dL1.6 - 2.6 mg/dLRegency Hospital ToledoLaboratory - CoagulationOrdered By: Amy Watson on 08-11-4773nRYQ Coag (PPP) [Time]23.6 sLowOSMercy HealthComment on above:Specimen integrity checked.INR Coag (Bld) [Relative time]1.1 {INR}0.9 - 1.1[facility] ToledoPT Coag (PPP) [Time] 14.4 [facility] CenterLaboratory - Hematology and Cell countson 40-02-6378Wnvefordx (Bld) [#/Vol]K/uL0.00 - 0.09 K/uLRegency Hospital Toledo Basophils/100 WBC (Bld)0.2 %[facility] ToledoDifferential cell count method Nom (Bld)Electronic DifferentialRegency Hospital ToledoEosinophils (Bld) [#/Vol]K/uL0.00 - 0.48 K/uLRegency Hospital ToledoEosinophils/100 WBC (Bld)0.2 %[facility] ToledoErythrocyte distribution width (RBC) [Ratio] 14.6 %High10.9 - 14.3 %[facility] ToledoHematocrit (Bld) [Volume fraction]33.0 %Low39.6 - 48.8 %[facility] ToledoHemoglobin (Bld) [Mass/Vol]10.9 g/dLLow13.4 - 16.8 g/dLRegency Hospital ToledoImmature granulocytes (Bld) [#/Vol]0.09 10*3/uLHighNINF - 0.07 K/[facility] Mary HospitalImmature granulocytes/100 WBC (Bld)1.4 %[facility] Lymphocytes (Bld) [#/Vol]0.65 10*3/uLLow0.83 - 3.57 K/[facility] Mary HospitalLymphocytes/100 WBC (Bld)10.1 %[facility] City HospitalH (RBC) [Entitic mass]30.4 pg26.1 - 33.3 pgOSSelect Medical Specialty Hospital - Cincinnati NorthHC (RBC) [Mass/Vol]33.0 g/dL31.9 - 36.5 g/dLRegency Hospital ToledoMCV (RBC) [Entitic vol]91.9 fL79.0 - 94.5 Park[facility] HospitalMonocytes (Bld) [#/Vol]0.71 10*3/uL0.24 - 0.93 K/[facility] Mary HospitalMonocytes/100 WBC (Bld)11.1 %[facility] Hospital ToledoNeutrophils (Bld) [#/Vol]4.94 10*3/uL1.57 - 6.19 /[address] Mary HospitalNucleated RBC/100 WBC (Bld) [Ratio]0.0 %[facility] Platelet mean volume (Bld) [Entitic vol]9.2 fL8.7 - 12.3 Park[facility] HospitalPlatelets (Bld) [#/Vol]232 10*3/uL146 - 337 KMercy Health [facility] Hospital RBC (Bld) [#/Vol]3.59 10*6/uLLowMiami Valley Hospitalegmented neutrophils/100 WBC (Bld)77.0 %[facility] ToledoWBC (Bld) [#/Vol]6.41 10*3/uL3.73 - 10.10 [facility] HospitalMAGNESIUMon 81-03-9394Jhxbjvsqz [Mass/Vol]2.0 mg/dLNormal1.6-2.6[facility] [place] Comment on above:Performed By: #### MGO, HFP, CA, CHM7, IPB #### [facility] (DEFAULT) [address] [place] [address]Ye Panel InformationOrdered By: Amy Watson on 05-09-2025 Interpretation and review of laboratory resultsAbEmanate Health/Inter-community HospitalNo Panel Informationon 68-68-3137rTYZ, CKD-EPI, Male81- PINFORegency Hospital Cleveland EastComment on above:Reported eGFR is based on the CKD-EPI 2020 equation using creatinine, age, and sex.Interpretation and review of laboratory resultsNoAdams County Regional Medical CenterInterpretation and review of laboratory resultsAbAnaheim Regional Medical Center Interpretation and review of laboratory resultsNoKaiser Permanente Medical CenterInterpretation and review of laboratory resultsAbnormal [facility] General HospitalPHOSPHATE, INORGANICon 90-90-2073Ymmjucwnhzp9.2 mg/dLNormal2.2-4.6Access Hospital DaytonComment on above:Performed By: #### HH #### [facility] (DEFAULT) [address] [place] [address]OS,INR,PTTon 57-10-3393qZYA Coag (Bld) [Time]23.6 sLow 24.0-34.3Access Hospital DaytonComment on above:Result Comment: Specimen integrity checked.Performed By: #### HH #### [facility] (DEFAULT) [address] [place] [address]IYQ Coag (PPP) [Relative time]1.1 {INR}Normal0.9-1.1Access Hospital DaytonComment on above:Performed By: #### HH #### [facility] (DEFAULT) [address] [place] [address] 47598CD Coag (PPP) [Time]14.4 sHigh11.9-14.2Access Hospital DaytonComment on above:Performed By: #### HH #### [facility] (DEFAULT) [address] [place] [address]SU ABDOMEN RUQ/LIVER/GBon 92-18-3593VW ABDOMEN RUQ/LIVER/GB EXAM: US ABDOMEN RUQ/LIVER/GB, 05/09/2025 [...] 1. Hepatic steatosis. 2. Gallstones without cholecystitis. [facility] HospitalUS Abdomen RUQon 52-15-5424TZPHHSQOKU: 1. Hepatic steatosis. 2. Gallstones without cholecystitis. [...] 1. Hepatic steatosis. 2. Gallstones without cholecystitis. [facility] ToledoRadiology Study observation (narrative)OSMercy HealthUS Abdomen RUQOrdered By: Kayla Escobedo on 40-17-3472[facility] Work Phone: basic Metabolic Panelon 75-42-9938Obtha gap [Moles/Vol]10.8 mmol/LNormal6.0-15.0The [facility] Physician GroupComment on above:Performed By: #### AERC, GS #### [place] [address] USACalcium [Mass/Vol]9.0 mg/dLNormal8.6-10.3The [facility] Physician GroupComment on above:Performed By: #### AERC, GS #### [facility] [address] [place] [address] USAChloride [Moles/Vol]106 mmol/TOhkghu08-265Mva [facility] Physician GroupComment on above:Performed By: #### AERC, GS #### [place] [address] USACO2 [Moles/Vol]23.9 mmol/VVvwzdo57.0-31.0The [facility] Physician GroupComment on above:Performed By: #### AERC, GS #### [place] [address] USACreatinine [Mass/Vol]1.01 mg/dLNormal0.70-1.30The [facility] Physician GroupComment on above:Performed By: #### AERC, GS #### [place] [address] USACreatinine Clr Calc Ezhayumg26.59NormalThe [facility] Hospital Physician GroupComment on above:Result Comment: PERFORMED BY: [place] [address] PATHOLOGIST TOOLS ADMINISTRATOR MAXIM HERNANDEZ M.D.Performed By: #### AERC, GS #### [place] [address] USAGFR/1.73 sq M.predicted MDRD (S/P/Bld) [Vol rate/Area] mL/min/{1.73_m2}NormalThe [facility] Hospital Physician GroupComment on above:Performed By: #### AERC, GS #### [facility] [address] [place] [address] USAGlucose [Mass/Vol]135 mg/eVWbzp44-333Wok [facility] Physician GroupComment on above:Result Comment: Random Glucose Reference Range is dependent on time and content of last meal. Glucose of more than 200 mg/dL in a nonstressed, ambulatory subject supports the diagnosis of Diabetes Mellitus. ADA recommended reference rangePerformed By: #### AERC, GS #### [facility] [address] [place] [address] USAPotassium [Moles/Vol]3.7 mmol/LNormal3.5-5.1The [facility] Physician GroupComment on above:Performed By: #### AERC, GS #### [place] [address] USASodium [Moles/Vol]137 mmol/OWcvdjv014-123Gls [facility] Physician GroupComment on above:Performed By: #### AERC, GS #### [place] [id number] USAUrea nitrogen [Mass/Vol]27 mg/dLHigh7-25The [facility] Physician GroupComment on above:Performed By: #### AERC, GS #### [place] [id number] USALon 05-08-2025 Specimen: [id number] Received: 05/08/25 Status: ALTON Alvarez Num: [id number] Spec Type: Impression Subm Dr: Ben Reddy DO Tissues: PATHPER Procedures: PATHREVIEW Age/ Patient Sex Location Account Attending Physician Tristin Powell 85/M 4P [id number] Ben Redyd DO SPEC NUM: [id number] RECD: 05/08/25 STATUS: ALTON ALVAREZ NUM: [id number] ANNA: 05/08/25 DR: Ben Reddy DO ENTERED: 05/08/[address]: BRITTANI TYPE: Impression DEPT: CO ORDERED: PATHREVIEW ORDERED: PATHREVIEW Pathologist Review PERIPHERAL SMEAR REVIEW Review of the smear confirms the CBC results RBCs: Mildly reduced in number, moderate anisopoikilocytosis, rare schistocytes noted, nucleated cells noted WBCs: Reduced in number with absolute lymphopenia Platelets: Normal in number and morphology CPT: 08064 Specimen: [id number] Received: 05/08/25 Status: ALTON Alvarez Num: [id number] Spec Type: Impression Subm Dr: Ben Reddy DO Tissues: PATHPER Procedures: PATHREVIEW Patient: Tristin Powell [id number] (Continued) Signed (signature on file) Daniel Quezada Jr., MD 05/08/25 1010NoFormerly [facility] Physician GroupPartial Thromboplastin Timeon 92-68-4945iVDD Thelma (Bld) [Time]19.8 sLow25.1-36.5The [facility] Comment on above:Result Comment: A hematocrit value greater than 55% may lead to inaccurate results in coagulation testing. Patients having hematocrit values >55% require a special collection tube for coagulation studies. Please contact the laboratory at [phone] for redraw instructions. PERFORMED BY: [facility] [id number] PATHOLOGIST TOOLS ADMINISTRATOR MAXIM HERNANDEZ M.D.Performed By: #### PTT, PT ####[address] [address] USAPathologist Slide Reviewon 05-08-2025 Pathologist Slide ReviewOrdered Path ReviewUniversity of Miami Hospital Physician Group Comment on above:Result Comment: PERFORMED BY: [place] [address] PATHOLOGIST TOOLS ADMINISTRATOR MAXIM HERNANDEZ M.D.Performed By: #### AERC, GS #### [place] [id number] USAProthrombin Time INRon 65-19-3325EUM Coag (PPP) [Relative time]1.1 {INR}NormalThe [facility] Hospital Physician GroupComment on above:Result Comment: INR Therapeutic [...] 3 - 4.5Performed By: #### PTT, PT ####[place] [id number] USAPT Coag (PPP) [Time]13.0 sHigh9.0-12.9The [facility] Physician GroupComment on above:Result Comment: A hematocrit value greater than 55% may lead to inaccurate results in coagulation testing. Patients having hematocrit values >55% require a special collection tube for coagulation studies. Please contact the laboratory at [phone] for redraw instructions.Performed By: #### PTT, PT ####[place] [id number] USAScan and CBCon 96-23-6785Enzfnotcapdv Ql (Bld) SlightNoFormerly [facility] Physician GroupComment on above:Performed By: #### AERC, GS #### [place] [id number] USABasophils (Bld) [#/Vol]0.0 10*3/uLNormal0.0-0.2The [facility] Physician GroupComment on above:Performed By: #### AERC, GS #### [place] [address] USABasophils/100 WBC (Bld)0.2 %Normal.The [facility] Physician GroupComment on above:Performed By: #### AERC, GS #### [place] [address] USACrenated RBCModerateNormalThe [facility] Physician Group Comment on above:Performed By: #### AERC, GS #### [place] [address] USAEosinophils (Bld) [#/Vol]0.1 10*3/uLNormal0.0-0.45The [facility] Physician GroupComment on above:Performed By: #### AERC, GS #### [place] [address] USAEosinophils/100 WBC (Bld)1.9 %Normal.The [facility] Physician GroupComment on above:Performed By: #### AERC, GS #### [place] [address] USAErythrocyte distribution width (RBC) [Ratio]15.5 %High 12.0-14.8The [facility] Physician GroupComment on above:Performed By: #### AERC, GS #### [place] [address] USAHematocrit (Bld) [Volume fraction]30.1 %Low38.8-50.0The [facility] Physician GroupComment on above:Performed By: #### AERC, GS #### [place] [address] USAHemoglobin (Bld) [Mass/Vol]10.9 g/dLLow13.0-17.0The [facility] Physician GroupComment on above:Performed By: #### AERC, GS #### [place] [address] USALymphocytes (Bld) [#/Vol]0.4 10*3/uLLow1.00-4.8The [facility] Physician GroupComment on above:Performed By: #### AERC, GS #### [place] [address] USALymphocytes/100 WBC (Bld)11.1 %Normal.The [facility] Physician GroupComment on above:Performed By: #### AERC, GS #### [place] [address] USAH (RBC) [Entitic mass]33.9 nuVoyuzg79.5-35.2The [facility] Physician GroupComment on above:Performed By: #### AERC, GS #### [place] [address] USAMCV (RBC) [Entitic vol]94.1 mDPdvegy07.5-101The [facility] Physician GroupComment on above:Performed By: #### AERC, GS #### [place] [address] USAMean Corpuscular HGB Conc36.0 g/rZAxap83.5-35.6The [facility] Physician GroupComment on above:Performed By: #### AERC, GS #### [place] [address] USAMonocytes (Bld) [#/Vol]0.5 10*3/uLNormal0.0-0.8The [facility] Physician GroupComment on above:Performed By: #### AERC, GS #### [place] [address] USAMonocytes/100 WBC (Bld)14.5 %Normal.The [facility] Physician GroupComment on above:Performed By: #### AERC, GS #### [place] [address] USANeutrophils (Bld) [#/Vol]2.7 10*3/uLNormal1.8-7.7The [facility] Physician GroupComment on above:Performed By: #### AERC, GS #### [place] [address] USANeutrophils/100 WBC (Bld)72.3 %Normal.The [facility] Physician GroupComment on above:Performed By: #### AERC, GS #### [place] [address] USANRBC%0.9 /100{WBC}High0-0.5The [facility] Comment on above:Performed By: #### AERC, GS #### [place] [address] USAOvalocytesModerateNormBaptist Health Fishermen’s Community Hospital Physician [facility] Comment on above:Performed By: #### AERC, GS #### [place] [address] USAPlatelet EstimateNormalNormalNormBaptist Health Fishermen’s Community Hospital Physician GroupComment on above:Performed By: #### AERC, GS #### [place] [address] USAPlatelet mean volume (Bld) [Entitic vol]7.2 fLNormal 6.6-10.1The [facility] Physician GroupComment on above:Performed By: #### AERC, GS #### [place] [address] USAPlatelet MorphologyNormalNormalNormBaptist Health Fishermen’s Community Hospital Physician GroupComment on above:Result Comment: PERFORMED BY: [place] [address] PATHOLOGIST TOOLS ADMINISTRATOR MAXIM HERNANDEZ M.D.Performed By: #### AERC, GS #### [place] [address] USAPlatelets (Bld) [#/Vol]231 10*3/iMKidcvg534-390Toy [facility] Physician GroupComment on above:Performed By: #### AERC, GS #### [place] [address] USAPoikilocytosisModerateNormBaptist Health Fishermen’s Community Hospital Physician Group Comment on above:Performed By: #### AERC, GS #### [place] [address] USARBC (Bld) [#/Vol]3.20 10*6/uLLow3.90-5.60The [facility] Physician GroupComment on above:Performed By: #### AERC, GS #### [place] [address] USAWBC (Bld) [#/Vol]3.7 10*3/uLLow4.1-10.5The [facility] Physician GroupComment on above:Performed By: #### AERC, GS #### [place] [address] USAWhite Blood Count3.7 [CFU]/mLLow4.1-10.5The [facility] Physician GroupComment on above:Performed By: #### AERC, GS #### [place] [address] USABasic Metabolic Panelon 87-73-1967Urtzc gap [Moles/Vol] 13.0 mmol/LNormal6.0-15.0The [facility] Physician GroupComment on above:Performed By: #### BMP, CBC #### [place] [address] USACalcium [Mass/Vol]8.7 mg/dLNormal8.6-10.3The [facility] Physician GroupComment on above:Performed By: #### BMP, CBC #### [place] [address] USAChloride [Moles/Vol]105 mmol/ULhsyqd98-815Yld [facility] Physician GroupComment on above:Performed By: #### BMP, CBC #### [place] [address] USACO2 [Moles/Vol]22.6 mmol/VRjmeib64.0-31.0The [facility] Physician GroupComment on above:Performed By: #### BMP, CBC #### [place] [address] USACreatinine [Mass/Vol]0.97 mg/dLNormal0.70-1.30The [facility] Physician GroupComment on above:Performed By: #### BMP, CBC #### [place] [address] USACreatinine Clr Calc Thgtszqh95.15NormalThe [facility] Physician GroupComment on above:Result Comment: PERFORMED BY: [place] [address] PATHOLOGIST TOOLS ADMINISTRATOR MAXIM HERNANDEZ M.D.Performed By: #### BMP, CBC #### [place] [address] USAGFR/1.73 sq M.predicted MDRD (S/P/Bld) [Vol rate/Area] mL/min/{1.73_m2}NormalThe [facility] Hospital Physician GroupComment on above:Performed By: #### BMP, CBC #### [place] [address] USAGlucose [Mass/Vol]109 mg/oUHcph54-865Fkk [facility] Physician GroupComment on above:Result Comment: Random Glucose Reference Range is dependent on time and content of last meal. Glucose of more than 200 mg/dL in a nonstressed, ambulatory subject supports the diagnosis of Diabetes Mellitus. ADA recommended reference rangePerformed By: #### BMP, CBC #### [place] [address] USAPotassium [Moles/Vol]3.6 mmol/LNormal3.5-5.1The [facility] Physician GroupComment on above:Performed By: #### BMP, CBC #### [place] [address] USASodium [Moles/Vol]137 mmol/LYvdqab484-289Anw [facility] Physician GroupComment on above:Performed By: #### BMP, CBC #### [facility] [address] [place] [address] USAUrea nitrogen [Mass/Vol]30 mg/dLHigh7-25The [facility] Physician GroupComment on above:Performed By: #### BMP, CBC #### [place] [address] USAComplete Blood Count Auto Diffon 98-80-2528Gmoivkrrv (Bld) [#/Vol]0.0 10*3/uLNormal0.0-0.2The [facility] Physician GroupComment on above: Result Comment: PERFORMED BY: [place] [address] PATHOLOGIST TOOLS ADMINISTRATOR MAXIM HERNANDEZ M.D.Performed By: #### BMP, CBC #### [place] [address] USABasophils/100 WBC (Bld)0.2 %Normal.The [facility] Physician GroupComment on above:Performed By: #### BMP, CBC #### [place] [address] USAEosinophils (Bld) [#/Vol]0.0 10*3/uLNormal0.0-0.45The [facility] Physician GroupComment on above:Performed By: #### BMP, CBC #### [place] [address] USAEosinophils/100 WBC (Bld)0.1 %Normal.The [facility] Physician GroupComment on above:Performed By: #### BMP, CBC #### [place] [address] USAErythrocyte distribution width (RBC) [Ratio]15.4 %High 12.0-14.8The [facility] Physician GroupComment on above:Performed By: #### BMP, CBC #### [place] [address] USAHematocrit (Bld) [Volume fraction]32.2 %Low38.8-50.0The [facility] Physician GroupComment on above:Performed By: #### BMP, CBC #### [place] [address] USAHemoglobin (Bld) [Mass/Vol]11.3 g/dLLow13.0-17.0The [facility] Physician GroupComment on above:Performed By: #### BMP, CBC #### [facility] [address] [place] [address] USALymphocytes (Bld) [#/Vol]0.4 10*3/uLLow1.00-4.8The [facility] Physician GroupComment on above:Performed By: #### BMP, CBC #### [place] [address] USALymphocytes/100 WBC (Bld)10.3 %Normal.The [facility] Physician GroupComment on above:Performed By: #### BMP, CBC #### [place] [address] USAMCH (RBC) [Entitic mass]33.0 iuPftxof44.5-35.2The [facility] Physician GroupComment on above:Performed By: #### BMP, CBC #### [place] [address] USAMCV (RBC) [Entitic vol]93.6 pZDwadmd78.5-101The [facility] Physician GroupComment on above:Performed By: #### BMP, CBC #### [place] [address] USAMean Corpuscular HGB Conc35.2 g/kBEbmalw87.5-35.6The [facility] Physician GroupComment on above:Performed By: #### BMP, CBC #### [place] [address] USAMonocytes (Bld) [#/Vol]0.5 10*3/uLNormal0.0-0.8The [facility] Physician GroupComment on above:Performed By: #### BMP, CBC #### [place] [address] USAMonocytes/100 WBC (Bld)12.5 %Normal.The [facility] Physician GroupComment on above:Performed By: #### BMP, CBC #### [place] [address] USANeutrophils (Bld) [#/Vol]2.9 10*3/uLNormal1.8-7.7The [facility] Physician GroupComment on above:Performed By: #### BMP, CBC #### [facility] [address] [place] [address] USANeutrophils/100 WBC (Bld)76.9 %Normal.The [facility] Physician GroupComment on above:Performed By: #### BMP, CBC #### [facility] [address] [place] [address] USANRBC%0.2 /100{WBC}Normal0-0.5The [facility] Comment on above:Performed By: #### BMP, CBC #### [facility] [address] [place] [address] USAPlatelet mean volume (Bld) [Entitic vol]7.3 fLNormal 6.6-10.1The [facility] Physician GroupComment on above:Performed By: #### BMP, CBC #### [place] [address] USAPlatelets (Bld) [#/Vol]268 10*3/lKTrswon087-234Lff [facility] Physician GroupComment on above:Performed By: #### BMP, CBC #### [place] [address] USARBC (Bld) [#/Vol]3.44 10*6/uLLow3.90-5.60The [facility] Physician GroupComment on above:Performed By: #### BMP, CBC #### [place] [address] USAWBC (Bld) [#/Vol]3.7 10*3/uLLow4.1-10.5The [facility] Physician GroupComment on above:Performed By: #### BMP, CBC #### [place] [address] USAWhite Blood Count3.7 [CFU]/mLLow4.1-10.5The [facility] Physician GroupComment on above:Performed By: #### BMP, CBC #### [place] [address] USAPartial Thromboplastin Timeon 88-06-1576nLPI Coag (Bld) [Time]24.4 sLow25.1-36.5The [facility] Physician GroupComment on above:Result Comment: A hematocrit value greater than 55% may lead to inaccurate results in coagulation testing. Patients having hematocrit values >55% require a special collection tube for coagulation studies. Please contact the laboratory at [phone] for redraw instructions. PERFORMED BY: [place] [address] PATHOLOGIST TOOLS ADMINISTRATOR MAXIM HERNANDEZ M.D.Performed By: #### CBC #### [place] [id number] USAProthrombin Time INRon 00-56-9797KWM Coag (PPP) [Relative time]1.2 {INR}NormalThe [facility] Physician GroupComment on above:Result Comment: INR Therapeutic [...] 3 - 4.5Performed By: #### CBC #### [place] [address] USAPT Coag (PPP) [Time]13.5 sHigh9.0-12.9The [facility] Physician GroupComment on above:Result Comment: A hematocrit value greater than 55% may lead to inaccurate results in coagulation testing. Patients having hematocrit values >55% require a special collection tube for coagulation studies. Please contact the laboratory at [phone] for redraw instructions.Performed By: #### CBC #### [address] [address] USAXR chest 1V portableon 78-41-9175DW chest 1V portable [facility] Main [address] [address] XRay Report Signed Patient: Tristin Powell MR#: [id number] : 1940 Acct:[id number] Age/Sex: 85 / M ADM Date: 05/04/25 Loc: Room: [address] [place] [address] Type: ADM IN Attending Dr: Ben Reddy [...] Jr., D.O. 05/07/2025 10:05 AM Dictation Location: [place] [address] Transcribed By: [facility] 05/07/25 1005 Dictated By: Nabor Solitario Jr, DO 05/07/25 1004 Signed By: 05/07/25 1005NoFormerly [facility] Physician GroupBasic Metabolic Panelon 62-55-8029Elmxu gap [Moles/Vol]10.9 mmol/LNormal6.0-15.0The [facility] Physician GroupComment on above:Performed By: #### BMP, CBC #### [facility] [address] [place] [address] USACalcium [Mass/Vol]8.5 mg/dLLow8.6-10.3The [facility] Physician GroupComment on above:Performed By: #### BMP, CBC #### [facility] [address] [place] [address] USAChloride [Moles/Vol]102 mmol/KNdpjaa68-396Bat [facility] Physician GroupComment on above:Performed By: #### BMP, CBC #### [facility] [address] [place] [address] USACO2 [Moles/Vol]23.6 mmol/AUmvsed91.0-31.0The [facility] Physician GroupComment on above:Performed By: #### BMP, CBC #### [place] [address] USACreatinine [Mass/Vol]1.14 mg/dLNormal0.70-1.30The [facility] Physician GroupComment on above:Performed By: #### BMP, CBC #### [place] [address] USACreatinine Clr Calc Xsyfllqy87.53NormalThe [facility] Physician GroupComment on above:Result Comment: PERFORMED BY: [place] [address] PATHOLOGIST TOOLS ADMINISTRATOR MAXIM HERNANDEZ M.D.Performed By: #### BMP, CBC #### [place] [address] USAGFR/1.73 sq M.predicted MDRD (S/P/Bld) [Vol rate/Area] mL/min/{1.73_m2}NormalThe [facility] Physician GroupComment on above:Performed By: #### BMP, CBC #### [place] [address] USAGlucose [Mass/Vol]115 mg/wKKpos90-815Goj [facility] Physician GroupComment on above:Result Comment: Random Glucose Reference Range is dependent on time and content of last meal. Glucose of more than 200 mg/dL in a nonstressed, ambulatory subject supports the diagnosis of Diabetes Mellitus. ADA recommended reference rangePerformed By: #### BMP, CBC #### [place] [address] USAPotassium [Moles/Vol]3.5 mmol/LNormal3.5-5.1The [facility] Physician GroupComment on above:Performed By: #### BMP, CBC #### [place] [address] USASodium [Moles/Vol]133 mmol/ZQaa470-190Frt [facility] Physician GroupComment on above:Performed By: #### BMP, CBC #### [place] [address] USAUrea nitrogen [Mass/Vol]35 mg/dLHigh7-25The [facility] Physician GroupComment on above:Performed By: #### BMP, CBC #### [facility] [address] [place] [id number] USACT chest wo conon 24-89-8206DI chest wo [facility] [place] [address] [place] [address] CT Scan Report Signed Patient: Tristin Powell MR#: [id number] : 1940 Acct:[id number] Age/Sex: 85 / M ADM Date: 05/04/25 Loc: Room: [address] [place] [address] Type: ADM IN Attending Dr: Ben Reddy [...] Solitario Jr, 05/06/25 1230 Signed By: 05/06/25 1236NormBaptist Health [facility] Physician GroupCoagulation Profileon 05-06-2025 aPTT Coag (Bld) [Time]27.8 oLopfrb95.1-36.5The [facility] Physician [facility] CountyComment on above:Order Comment: PER NURSE PRACTITIONER ANN- WANTS TO WAIT UNTIL 1400, HE HAS A CBC AT 1400.Result Comment: A hematocrit value greater than 55% may lead to inaccurate results in coagulation testing. Patients having hematocrit values >55% require a special collection tube for coagulation studies. Please contact the laboratory at [phone] for redraw instructions. PERFORMED BY: [place] [id number] PATHOLOGIST TOOLS ADMINISTRATOR MAXIM HERNANDEZ M.D.Performed By: #### BMP, CBC #### [facility] [address] [place], [place] [id number] USAINR Coag (PPP) [Relative time]1.4 {INR}NormalThe [facility] Physician [facility] CountyComment on above:Order Comment: PER NURSE PRACTITIONER ANN- [...] - 4.5Performed By: #### BMP, CBC #### [facility] [address] [place] [address] USAPT Coag (PPP) [Time]15.9 sHigh9.0-12.9The [facility] Physician GroupComment on above:Order Comment: PER NURSE PRACTITIONER ANN- WANTS TO WAIT UNTIL 1400, HE HAS A CBC AT 1400.Result Comment: A hematocrit value greater than 55% may lead to inaccurate results in coagulation testing. Patients having hematocrit values >55% require a special collection tube for coagulation studies. Please contact the laboratory at [phone] for redraw instructions.Performed By: #### BMP, CBC #### [place] [address] USAComplete Blood Count Auto Diffon 20-25-5060Sqxqngaox (Bld) [#/Vol]0.0 10*3/uLNormal0.0-0.2The [facility] Physician GroupComment on above: Result Comment: PERFORMED BY: [place] [address] PATHOLOGIST TOOLS ADMINISTRATOR MAXIM HERNANDEZ M.D.Performed By: #### CBC #### [place] [address] USABasophils/100 WBC (Bld)0.1 %Normal.The [facility] Physician GroupComment on above:Performed By: #### CBC #### [place] [address] USAEosinophils (Bld) [#/Vol]0.0 10*3/uLNormal0.0-0.45The [facility] Physician GroupComment on above:Performed By: #### CBC #### [place] [address] USAEosinophils/100 WBC (Bld)0.1 %Normal.The [facility] Physician GroupComment on above:Performed By: #### CBC #### [place] [address] USAErythrocyte distribution width (RBC) [Ratio]15.2 %High 12.0-14.8The [facility] Physician GroupComment on above:Performed By: #### CBC #### [place] [address] USAHematocrit (Bld) [Volume fraction]32.8 %Low38.8-50.0The [facility] Physician GroupComment on above:Performed By: #### CBC #### [place] [address] USAHemoglobin (Bld) [Mass/Vol]11.7 g/dLLow13.0-17.0The [facility] Physician GroupComment on above:Performed By: #### CBC #### [facility] [address] [place] [address] USALymphocytes (Bld) [#/Vol]0.2 10*3/uLLow1.00-4.8The [facility] Physician GroupComment on above:Performed By: #### CBC #### [facility] [address] [place] [address] USALymphocytes/100 WBC (Bld)6.5 %Normal.The [facility] Physician GroupComment on above:Performed By: #### CBC #### [facility] [address] [place] [address] USAMCH (RBC) [Entitic mass]32.6 xfVosgog73.5-35.2The [facility] Physician GroupComment on above:Performed By: #### CBC #### [place] [address] USAMCV (RBC) [Entitic vol]91.6 yZPsalxf96.5-101The [facility] Physician GroupComment on above:Performed By: #### CBC #### [place] [address] USAMean Corpuscular HGB Conc35.6 g/aHEirrmv49.5-35.6The [facility] Physician GroupComment on above:Performed By: #### CBC #### [facility] [address] [place] [address] USAMonocytes (Bld) [#/Vol]0.3 10*3/uLNormal0.0-0.8The [facility] Physician GroupComment on above:Performed By: #### CBC #### [facility] [address] [place] [address] USAMonocytes/100 WBC (Bld)10.4 %Normal.The [facility] Physician GroupComment on above:Performed By: #### CBC #### [place] [address] USANeutrophils (Bld) [#/Vol]2.1 10*3/uLNormal1.8-7.7The [facility] Physician GroupComment on above:Performed By: #### CBC #### [facility] [address] [place] [address] USANeutrophils/100 WBC (Bld)82.9 %Normal.The [facility] Physician GroupComment on above:Performed By: #### CBC #### [facility] [address] [place] [address] USANRBC%0.2 /100{WBC}Normal0-0.5The [facility]ician Group Comment on above:Performed By: #### CBC #### [facility] [address] [place] [address] USAPlatelet mean volume (Bld) [Entitic vol]7.3 fLNormal 6.6-10.1The [facility] Physician GroupComment on above:Performed By: #### CBC #### [place] [address] USAPlatelets (Bld) [#/Vol]222 10*3/cGAofofl429-867Jcu [facility] Physician GroupComment on above:Performed By: #### CBC #### [place] [address] USARBC (Bld) [#/Vol]3.59 10*6/uLLow3.90-5.60The [facility] Physician GroupComment on above:Performed By: #### CBC #### [place] [address] USAWBC (Bld) [#/Vol]2.5 10*3/uLLow4.1-10.5The [facility] Physician GroupComment on above:Performed By: #### CBC #### [place] [address] USAWhite Blood Count2.5 [CFU]/mLLow4.1-10.5The [facility] Physician GroupComment on above:Performed By: #### CBC #### [address] [address] USABasophils (Bld) [#/Vol]0.0 10*3/uLNormal0.0-0.2The [facility] Physician GroupComment on above:Result Comment: PERFORMED BY: [place] [address] PATHOLOGIST TOOLS ADMINISTRATOR MAXIM HERNANDEZ M.D.Performed By: #### BMP, CBC #### [place] [address] USABasophils/100 WBC (Bld)0.1 %Normal.The [facility] Physician GroupComment on above:Performed By: #### BMP, CBC #### [place] [address] USAEosinophils (Bld) [#/Vol]0.0 10*3/uLNormal0.0-0.45The [facility] Physician GroupComment on above:Performed By: #### BMP, CBC #### [place] [address] USAEosinophils/100 WBC (Bld)0.2 %Normal.The [facility] Physician GroupComment on above:Performed By: #### BMP, CBC #### [place] [address] USAErythrocyte distribution width (RBC) [Ratio]15.3 %High 12.0-14.8The [facility] Physician GroupComment on above:Performed By: #### BMP, CBC #### [place] [address] USAHematocrit (Bld) [Volume fraction]29.9 %Low38.8-50.0The [facility] Physician GroupComment on above:Performed By: #### BMP, CBC #### [place] [address] USAHemoglobin (Bld) [Mass/Vol]10.7 g/dLLow13.0-17.0The [facility] Physician GroupComment on above:Performed By: #### BMP, CBC #### [place] [address] USALymphocytes (Bld) [#/Vol]0.3 10*3/uLLow1.00-4.8The [facility] Physician GroupComment on above:Performed By: #### BMP, CBC #### [facility] [address] [place] [address] USALymphocytes/100 WBC (Bld)13.1 %Normal.The [facility] Physician GroupComment on above:Performed By: #### BMP, CBC #### [facility] [address] [place] [address] USAMCH (RBC) [Entitic mass]33.1 ifJsucoa20.5-35.2The [facility] Physician GroupComment on above:Performed By: #### BMP, CBC #### [facility] [address] [place] [address] USAMCV (RBC) [Entitic vol]92.7 yKVjqhyj51.5-101The [facility] Physician GroupComment on above:Performed By: #### BMP, CBC #### [facility] [address] [place] [address] USAMean Corpuscular HGB Conc35.7 g/zFWrue67.5-35.6The [facility] Physician GroupComment on above:Performed By: #### BMP, CBC #### [facility] [address] [place] [address] USAMonocytes (Bld) [#/Vol]0.5 10*3/uLNormal0.0-0.8The [facility] Physician GroupComment on above:Performed By: #### BMP, CBC #### [facility] [address] [place] [address] USAMonocytes/100 WBC (Bld)17.7 %Normal.The [facility] Physician GroupComment on above:Performed By: #### BMP, CBC #### [facility] [address] [place] [address] USANeutrophils (Bld) [#/Vol]1.8 10*3/uLNormal1.8-7.7The [facility] Physician GroupComment on above:Performed By: #### BMP, CBC #### [facility] [address] [place] [id number] USANeutrophils/100 WBC (Bld)68.9 %Normal.The [facility] Physician GroupComment on above:Performed By: #### BMP, CBC #### [facility] [address] [place] [address] USANRBC%0.1 /100{WBC}Normal0-0.5The [facility] Comment on above:Performed By: #### BMP, CBC #### [place] [address] USAPlatelet mean volume (Bld) [Entitic vol]7.3 fLNormal 6.6-10.1The [facility] Physician GroupComment on above:Performed By: #### BMP, CBC #### [place] [address] USAPlatelets (Bld) [#/Vol]200 10*3/gGVcryjc686-515Kei [facility] Physician GroupComment on above:Performed By: #### BMP, CBC #### [place] [address] USARBC (Bld) [#/Vol]3.23 10*6/uLLow3.90-5.60The [facility] Physician GroupComment on above:Performed By: #### BMP, CBC #### [place] [address] USAWBC (Bld) [#/Vol]2.7 10*3/uLLow4.1-10.5The [facility] Physician GroupComment on above:Performed By: #### BMP, CBC #### [place] [address] USAWhite Blood Count2.7 [CFU]/mLLow4.1-10.5The [facility] Physician GroupComment on above:Performed By: #### BMP, CBC #### [place] [address] USALegionella Pneumophilia Ag, Uron 11-18-2879Sjtggabvyv Pneumophilia Ag, UrNegativeNormalNegativeThe [facility] Physician GroupComment on above:Order Comment: Faxed Results to [facility] [phone] at 1525 on 05/09/25 Result Comment: Presumptive negative for L. pneumophila serogroup 1 antigen in urine, suggesting no recent or current infection. Legionnaires' disease cannot be ruled out since other serogroups and species may also cause disease. Performed at: [address] [id number] Courtroom Deputy: Kate Austin MD, Phone: [phone] By: #### URLEGIONELLA, UR STP AG ####[facility] ,Strep Pneumoniae Ag, Uron 02-55-1524Mdbx Fluid CultureNot indicated.Normal.The [facility] Comment on above:Order Comment: Faxed Results to [facility] [phone] at 1525 on 05/09/25Performed By: #### URLEGIONELLA, UR STP AG ####[facility] , Organism IDNot indicated.Normal.The [facility] Physician GroupComment on above: Order Comment: Faxed Results to [facility] [phone] at 1525 on 05/09/25Performed By: #### URLEGIONELLA, UR STP AG ####[facility] ,Please Note:Comment Normal.The [facility] Physician GroupComment on above:Order Comment: Faxed Results to [facility] [phone] at 1525 on 05/09/25Result Comment: [employer] standards require a culture to be performed on CSF specimens submitted for bacterial antigen testing. (CAP PETER.[id number]) Urine specimens will not be cultured. [employer] standards require a culture to be performed on CSF specimens submitted for bacterial antigen testing. (CAP PETER.[id number]) Urine specimens will not be cultured. Performed at: [address] [id number] Courtroom Deputy: Kate Austin MD, Phone: [phone] --- 05/08/25 1636 --- Please Note: previously reported as: Comment [employer] standards require a culture to be performed on CSF specimens submitted for bacterial antigen testing. (CAP PETER.[id number]) Urine specimens will not be cultured. PERFORMED BY: [facility] [address] PATHOLOGIST TOOLS ADMINISTRATOR MAXIM HERNANDEZ M.D.Performed By: #### URLEGIONELLA, UR STP AG ####[facility] ,Specimen source Nom (Unsp spec)UrineNormal.The [facility] Physician GroupComment on above:Order Comment: Faxed Results to [facility] [phone] at 1525 on 05/09/25Performed By: #### URLEGIONELLA, UR STP AG ####[facility] , Streptococcus Pneumoniae AgNegativeNormalNegativeThe [facility] Comment on above:Order Comment: Faxed Results to [facility] [phone] at 1525 on 05/09/25Performed By: #### URLEGIONELLA, UR STP AG ####[facility] , Aerobic Cultureon 91-25-8405Eqyattu CultureFaxed Results to [facility] [phone] at 1525 on 05/09/25 Result Tab Codes Heavy Normal Respiratory [place] 2 Days Faxed Results to [facility] [phone] at 1525 on 05/09/25 Gram Stain Result 3+ Gram Positive Cocci in Pairs 3+ Gram Positive Cocci in Clusters 3+ Gram Negative Bacilli 3+ White Blood Cells 2+ Epithelial Cells Rare Yeast Like Elements PERFORMED BY: [address] [address] PATHOLOGIST TOOLS ADMINISTRATOR MAXIM HERNANDEZ M.D.NormalThe [facility] Physician GroupComment on above: Performed By: #### AERC, GS #### [facility] [address] [place] [address] USABasic Metabolic Panelon 19-16-5852Apkyt gap [Moles/Vol] 14.3 mmol/LNormal6.0-15.0The [facility] Physician GroupComment on above:Performed By: #### BMP, CBC #### [facility] [address] [place] [address] USACalcium [Mass/Vol]8.9 mg/dLNormal8.6-10.3The [facility] Physician GroupComment on above:Performed By: #### BMP, CBC #### [facility] [address] [place] [address] USAChloride [Moles/Vol]97 mmol/UVcg23-054Bom [facility] Physician GroupComment on above:Performed By: #### BMP, CBC #### [facility] [address] [place] [address] USACO2 [Moles/Vol]24.8 mmol/KJtrgyx68.0-31.0The [facility] Physician GroupComment on above:Performed By: #### BMP, CBC #### [facility] [address] [place] [address] USACreatinine [Mass/Vol]1.45 mg/dLHigh0.70-1.30The [facility] Physician GroupComment on above:Performed By: #### BMP, CBC #### [facility] [address] [place] [address] USACreatinine Clr Calc Zkauhyoo54.59NormalThe [facility] Physician GroupComment on above:Result Comment: PERFORMED BY: [place] [address] PATHOLOGIST TOOLS ADMINISTRATOR MAXIM HERNANDEZ M.D.Performed By: #### BMP, CBC #### [place] [address] USAGFR/1.73 sq M.predicted MDRD (S/P/Bld) [Vol rate/Area] 46.930 mL/min/{1.73_m2}NormalThe [facility] Physician GroupComment on above: Performed By: #### BMP, CBC #### [facility] [address] [place] [address] USAGlucose [Mass/Vol]139 mg/mAMvbx38-967Wgd [facility] Physician GroupComment on above:Result Comment: Random Glucose Reference Range is dependent on time and content of last meal. Glucose of more than 200 mg/dL in a nonstressed, ambulatory subject supports the diagnosis of Diabetes Mellitus. ADA recommended reference rangePerformed By: #### BMP, CBC #### [facility] [address] [place] [address] USAPotassium [Moles/Vol]4.1 mmol/LNormal3.5-5.1The [facility] Physician GroupComment on above:Performed By: #### BMP, CBC #### [facility] [address] [place] [address] USASodium [Moles/Vol]132 mmol/YRuw082-487Euf [facility] Physician GroupComment on above:Performed By: #### BMP, CBC #### [facility] [address] [place] [address] USAUrea nitrogen [Mass/Vol]32 mg/dLHigh7-25The [facility] Physician GroupComment on above:Performed By: #### BMP, CBC #### [facility] [address] [place] [address] USACT angio chest PE protocolon 29-81-3782UT angio chest PE protocolMOUNT [facility]. [facility] [place] [address] [place] [address] CT Scan Report Signed Patient: Tristin Powell MR#: [id number] : 1940 Acct:[id number] Age/Sex: 85 / M ADM Date: 05/04/25 Loc: Room: [address] [place] [address] Type: ADM IN Attending Dr: Adiel Mccollum [...] Rodriguez M.D. 05/05/2025 8:31 AM Dictation Location: [place] [address] Transcribed By: [facility] 05/05/2531 Dictated By: Cristian Rodriguez DO 05/05/25 0828 Signed By: 05/05/2531[facility] Physician GroupDiff and Shmuel 05-05-2025 Anisocytosis Ql (Bld)SlightNoFormerly [facility] Physician GroupComment on above: Performed By: #### BMP, CBC #### [place] [address] USABand form neutrophils/100 WBC (Bld)22 %High0-5The [facility] Physician GroupComment on above:Performed By: #### BMP, CBC #### [place] [address] USACrenated RBCSlightNoFormerly [facility]ician [facility] Comment on above:Performed By: #### BMP, CBC #### [place] [address] USAErythrocyte distribution width (RBC) [Ratio]16.0 %High 12.0-14.8The [facility] Physician GroupComment on above:Performed By: #### BMP, CBC #### [place] [address] USAHematocrit (Bld) [Volume fraction]35.0 %Low38.8-50.0The [facility] Physician GroupComment on above:Performed By: #### BMP, CBC #### [facility] [address] [place] [address] USAHemoglobin (Bld) [Mass/Vol]12.4 g/dLLow13.0-17.0The [facility] Physician GroupComment on above:Performed By: #### BMP, CBC #### [facility] [address] [place] [address] USALymphocytes/100 WBC (Bld)6 %Zfy20-55Srq [facility] Physician GroupComment on above:Performed By: #### BMP, CBC #### [facility] [address] [place] [address] USAMCH (RBC) [Entitic mass]32.8 yyDzmluk93.5-35.2The [facility] Physician GroupComment on above:Performed By: #### BMP, CBC #### [place] [address] USAMCV (RBC) [Entitic vol]92.6 hBIpyiup74.5-101The [facility] Physician GroupComment on above:Performed By: #### BMP, CBC #### [place] [address] USAMean Corpuscular HGB Conc35.4 g/iQAzwydg43.5-35.6The [facility] Physician GroupComment on above:Performed By: #### BMP, CBC #### [place] [address] USAMetamyelocytes2 %High0-0The [facility] Comment on above:Performed By: #### BMP, CBC #### [place] [address] USAMonocytes/100 WBC (Bld)8 %Normal2-11The [facility] Physician GroupComment on above:Performed By: #### BMP, CBC #### [place] [address] USAPlatelet EstimateNormalNormalNormalThe [facility] Physician GroupComment on above:Performed By: #### BMP, CBC #### [place] [address] USAPlatelet mean volume (Bld) [Entitic vol]7.3 fLNormal 6.6-10.1The [facility] Physician GroupComment on above:Performed By: #### BMP, CBC #### [place] [address] USAPlatelet MorphologyNormalNormalNoFormerly [facility] Physician GroupComment on above:Result Comment: PERFORMED BY: [place] [address] PATHOLOGIST TOOLS ADMINISTRATOR MAXIM HERNANDEZ M.D.Performed By: #### BMP, CBC #### [place] [address] USAPlatelets (Bld) [#/Vol]248 10*3/yRJnmztd441-952Klw [facility] Physician GroupComment on above:Performed By: #### BMP, CBC #### [place] [address] USARBC (Bld) [#/Vol]3.78 10*6/uLLow3.90-5.60The [facility] Physician GroupComment on above:Performed By: #### BMP, CBC #### [place] [address] USASegmented neutrophils/100 WBC (Bld)62 %Jpmfmr67-25Lpr [facility] Physician GroupComment on above:Performed By: #### BMP, CBC #### [place] [address] USAToxic VacuolationSlightUniversity of [facility] Hospital Physician Group Comment on above:Performed By: #### BMP, CBC #### [place] [address] USAWBC (Bld) [#/Vol]7.6 10*3/uLNormal4.1-10.5The [facility] Physician GroupComment on above:Performed By: #### BMP, CBC #### [place] [address] USAWhite Blood Count7.6 [CFU]/mLNormal4.1-10.5The [facility] Physician GroupComment on above:Performed By: #### BMP, CBC #### [facility] [address] [place] [address] USAECH echo transthoracicon 45-56-1980IZR echo transthoracic [facility] [place] [address] [place] [id number] Echocardiogram Signed Patient: Tristin Powell MR#: [id number] : 1940 Acct:[id number] Age/Sex: 85 / M ADM Date: 05/04/25 Loc: Room: 4S6906-8 Type: ADM IN Attending Dr: Ben Reddy [...] 1127 Signed By: Eliezer Villa MD 05/05/[address] [place] [address] Physician GroupGram Stainon 52-42-6039Vrvzxllnosr observation Gram stain Nom (Unsp spec)Gram Stain Result 3+ Gram Positive Cocci in Pairs 3+ Gram Positive Cocci in Clusters 3+ Gram Negative Bacilli 3+ White Blood Cells 2+ Epithelial Cells Rare Yeast Like Elements PERFORMED BY: [place] [address] PATHOLOGIST TOOLS ADMINISTRATOR MAXIM HERNANDEZ M.D.NormalThe [facility] Physician [facility] CountyComment on above: Performed By: #### AERC, GS #### [place] [address] USAXR chest 1V portableon 40-76-2924XO chest 1V portable [facility] [place] [address] [place] [address] XRay Report Signed Patient: Tristin Powell MR#: [id number] : 1940 Acct:[id number] Age/Sex: 85 / M ADM Date: 05/04/25 Loc: Room: [address] [place] [address] Type: ADM IN Attending Dr: Adiel Mccollum [...] Developing right basilar atelectasis/pneumonitis Impression dictated by: Cirstian Rodriguez M.D. 05/05/2025 9:21 AM Dictation Location: [place] [address] Transcribed By: [facility] 05/05/25920 Dictated By: Cristian Rodriguez DO 05/05/25919 Signed By: 05/05/25 0921NoFormerly [facility] Physician GroupAerobic Cultureon 05-04-2025 Aerobic CultureFaxed Results to OS [phone] at 1525 on 05/09/25 ORGANISM: Streptococcus pneumoniae (O:STRPNE) Quantity of Growth Heavy Growth ORGANISM: Pseudomonas aeruginosa (O:PSEAER) Quantity of Growth Light Growth Faxed Results to [facility] [phone] at 1525 on 05/09/25 Gram Stain Result [...] RESISTANT TO ALL B-LACTAM DRUGS. PERFORMED BY: [facility] [place] [address] [place] [address] PATHOLOGIST TOOLS ADMINISTRATOR MAXIM HERNANDEZ M.D.[facility] Physician GroupComment on above: Performed By: #### AERC, #### [address] [address] USAECG 12 lead ECGon [id number] [address] [facility] Main [place] [address] [place] [address] Electrocardiograph Report Signed Patient: Tristin Powell MR#: [id number] : 1940 Acct:[id number] Age/Sex: 85 / M ADM Date: 05/04/25 Loc: Room: [address] [place] [address] Type: ADM IN Attending Dr: Ben Reddy [...] no longer present Confirmed by Eliezer Villa ([id number]) on 05/05/2025 5:26:36 PM Referred By: Electronically Signed By: Eliezer Villa Transcribed By: MUS Signed By Eliezer Villa MD 05/05/[address] [place] [address] Physician GroupGram Stainon 05-04-2025 Microscopic observation Gram stain Nom (Unsp spec)Gram Stain Result 3+ White Blood Cells 3+ Epithelial Cells 3+ Gram Positive Bacilli 3+ Gram Positive Cocci in Chains AND PAIRS 3+ Gram Negative Cocci 2+ Gram Negative Bacilli PERFORMED BY: [address] [address] PATHOLOGIST TOOLS ADMINISTRATOR MAXIM HERNANDEZ M.D.[facility] Physician [facility] CountyComment on above: Performed By: #### AERC, GS #### [address] [address] USAMRSA - MSSA Nasal PCRon [id number] - MSSA Nasal PCR Faxed Results to [facility] [phone] at 1525 on 05/09/25 MRSA Result MRSA Negative MSSA Result MSSA Negative Real-time PCR Test performed by real-time PCR Reference Range Reference Range for all targets = Neg / Not Detected Reference Note 20 Reference Note 26 PERFORMED BY: [facility] [place] [address] [place] [id number] PATHOLOGIST TOOLS ADMINISTRATOR MAXIM HERNANDEZ M.D.[facility] HospitalComment on above: Performed By: #### MRSA - MSSA PCR #### [facility] [address] [place] [address] USAMagnesiumon 99-48-2759Whmlgnxeu [Mass/Vol]1.7 mg/dLLow 1.9-2.7The [facility] Physician [facility] Stone CountyComment on above:Result Comment: PERFORMED BY: [place] [id number] PATHOLOGIST TOOLS ADMINISTRATOR MAXIM HERNANDEZ M.D.Performed By: #### MG ####[facility] [address] [place] [address] USATroponin I High Sensitivityon 53-93-3277Moleqxzs I High Gotqjvnxlgu37Susb5-18Fbk [facility] Physician [facility] Comment on above:Result Comment: The Troponin units of report have been changed to meet the Chest Pain Accreditation requirement, element EC5.M1l2. Troponin units are changed from pg/ml to ng/L. Also, the decimal is removed and results are in whole numbers. PERFORMED BY: [place] [address] PATHOLOGIST TOOLS ADMINISTRATOR MAXIM HERNANDEZ M.D.Performed By: #### CBC #### [place] [address] USABasic Metabolic Panelon 83-46-0776Uotpk gap [Moles/Vol] 12.6 mmol/LNormal6.0-15.0The [facility] Physician GroupComment on above:Order Comment: FASTING YPerformed By: #### CBC #### [place] [address] USACalcium [Mass/Vol]9.3 mg/dLNormal8.6-10.3The [facility] Physician GroupComment on above:Order Comment: FASTING YPerformed By: #### CBC #### [place] [address] USAChloride [Moles/Vol]103 mmol/ZRsgftj32-707Ksx [facility] Physician GroupComment on above:Order Comment: FASTING YPerformed By: #### CBC #### [place] [address] USACO2 [Moles/Vol]26.4 mmol/RKboygi18.0-31.0The [facility] Physician GroupComment on above:Order Comment: FASTING YPerformed By: #### CBC #### [place] [address] USACreatinine [Mass/Vol]0.90 mg/dLNormal0.70-1.30The [facility] Physician GroupComment on above:Order Comment: FASTING YPerformed By: #### CBC #### [place] [address] USACreatinine Clr Calc Ebjigijz32.27NormalThe [facility] Physician GroupComment on above:Order Comment: FASTING YPerformed By: #### CBC #### [facility] [address] [place] [address] USAGFR/1.73 sq M.predicted MDRD (S/P/Bld) [Vol rate/Area] mL/min/{1.73_m2}NormalThe [facility] Physician GroupComment on above:Order Comment: FASTING YPerformed By: #### CBC #### [place] [address] USAGlucose [Mass/Vol]87 mg/gSCjxhra93-848Ugc [facility] Physician GroupComment on above:Order Comment: FASTING YResult Comment: Random Glucose Reference Range is dependent on time and content of last meal. Glucose of more than 200 mg/dL in a nonstressed, ambulatory subject supports the diagnosis of Diabetes Mellitus. ADA recommended reference rangePerformed By: #### CBC #### [place] [address] USAPotassium [Moles/Vol]4.0 mmol/LNormal3.5-5.1The [facility] Physician GroupComment on above:Order Comment: FASTING YPerformed By: #### CBC #### [place] [address] USASodium [Moles/Vol]138 mmol/WHmddzq720-642Nrr [facility] Physician GroupComment on above:Order Comment: FASTING YPerformed By: #### CBC #### [place] [address] USAUrea nitrogen [Mass/Vol]22 mg/dLNormal7-25The [facility] Physician GroupComment on above:Order Comment: FASTING YPerformed By: #### CBC #### [place] [address] USAComplete Blood Count Auto Diffon 13-89-8391Kvvwhrpez (Bld) [#/Vol]0.0 10*3/uLNormal0.0-0.2The [facility] Physician GroupComment on above: Result Comment: PERFORMED BY: [place] [address] PATHOLOGIST TOOLS ADMINISTRATOR MAXIM HERNANDEZ M.D.Performed By: #### CBC #### [place] [address] USABasophils/100 WBC (Bld)0.4 %Normal.The [facility] Physician GroupComment on above:Performed By: #### CBC #### [facility] [address] [place] [address] USAEosinophils (Bld) [#/Vol]0.0 10*3/uLNormal0.0-0.45The [facility] Physician GroupComment on above:Performed By: #### CBC #### [place] [address] USAEosinophils/100 WBC (Bld)0.5 %Normal.The [facility] Physician GroupComment on above:Performed By: #### CBC #### [place] [address] USAErythrocyte distribution width (RBC) [Ratio]15.9 %High 12.0-14.8The [facility] Physician GroupComment on above:Performed By: #### CBC #### [place] [address] USAHematocrit (Bld) [Volume fraction]33.8 %Low38.8-50.0The [facility] Physician GroupComment on above:Performed By: #### CBC #### [place] [address] USAHemoglobin (Bld) [Mass/Vol]11.9 g/dLLow13.0-17.0The [facility] Physician GroupComment on above:Performed By: #### CBC #### [place] [address] USALymphocytes (Bld) [#/Vol]0.6 10*3/uLLow1.00-4.8The [facility] Physician GroupComment on above:Performed By: #### CBC #### [place] [address] USALymphocytes/100 WBC (Bld)20.9 %Normal.[facility] Physician GroupComment on above:Performed By: #### CBC #### [facility] [address] [place] [address] USAMCH (RBC) [Entitic mass]33.3 vdXgdznr95.5-35.2The [facility] Physician GroupComment on above:Performed By: #### CBC #### [address] StreetMCV (RBC) [Entitic vol]94.3 nDDzcwgf86.5-101The [facility] Physician GroupComment on above:Performed By: #### CBC #### [place] [address] USAMean Corpuscular HGB Conc35.3 g/xBXdqnez77.5-35.6The [facility] Physician GroupComment on above:Performed By: #### CBC #### [place] [address] USAMonocytes (Bld) [#/Vol]0.6 10*3/uLNormal0.0-0.8The [facility] Physician GroupComment on above:Performed By: #### CBC #### [place] [address] USAMonocytes/100 WBC (Bld)23.2 %Normal.The [facility] Physician GroupComment on above:Performed By: #### CBC #### [place] [address] USANeutrophils (Bld) [#/Vol]1.5 10*3/uLLow1.8-7.7The [facility] Physician GroupComment on above:Performed By: #### CBC #### [place] [address] USANeutrophils/100 WBC (Bld)55.0 %Normal.The [facility] Physician GroupComment on above:Performed By: #### CBC #### [place] [address] USANRBC%0.2 /100{WBC}Normal0-0.5The [facility]ician Group Comment on above:Performed By: #### CBC #### [place] [address] USAPlatelet mean volume (Bld) [Entitic vol]7.3 fLNormal 6.6-10.1The [facility] Physician GroupComment on above:Performed By: #### CBC #### [facility] [address] [place] [address] USAPlatelets (Bld) [#/Vol]216 10*3/kSSwmclc683-651Uml [facility] Physician GroupComment on above:Performed By: #### CBC #### [facility] [address] [place] [address] USARBC (Bld) [#/Vol]3.58 10*6/uLLow3.90-5.60The [facility] Physician GroupComment on above:Performed By: #### CBC #### [facility] [address] [place] [address] USAWBC (Bld) [#/Vol]2.8 10*3/uLLow4.1-10.5The [facility] Physician GroupComment on above:Performed By: #### CBC #### [place] [address] USAWhite Blood Count2.8 [CFU]/mLLow4.1-10.5The [facility] Physician GroupComment on above:Performed By: #### CBC #### [place] [address] USAECG 12 lead ECGon 13-57-4943WOL [address] [facility] Main [place] [address] [place] [address] Electrocardiograph Report Signed Patient: Tristin Powell MR#: [id number] : 1940 Acct:[id number] Age/Sex: 85 / M ADM Date: 05/02/25 Loc: Room: [address] [place] [address] Type: ADM INOo Attending Dr: Adiel Mccollum [...] are now present Confirmed by Eliezer Villa ([id number]) on 05/04/2025 8:06:25 AM Referred By: Electronically Signed By: Eliezer Villa Transcribed By: MUS Signed By Eliezer Villa MD 05/04/[address] [place], [place] [address]Lipid Panelon 05-03-2025 Cholesterol [Mass/Vol]136 mg/fJXsu150-388Afx [facility] ValleyComment on above:Order Comment: FASTING YResult Comment: Chol less than 200 mg/dl low risk Chol 201-239 mg/dl borderline risk Chol 240 mg/dl and greater high riskPerformed By: #### CBC #### [facility] [address] [place] [address] USACholesterol in HDL [Mass/Vol]56 mg/nSPilmyq02-10Lpj [facility] Physician [facility] CountyComment on above:Order Comment: FASTING YResult Comment: HDL CHOL ATP-III CLASSIFICATION Cardiovascular Risk HDL > or equal to 60 mg/dL LOW HDL < 40 mg/dL HIGHPerformed By: #### CBC #### [facility] [address] [place] [address] USACholesterol.total/Cholesterol in HDL [Mass ratio]2.4 {ratio}Normal<5.0The [facility] ValleyComment on above:Order Comment: FASTING YResult Comment: PERFORMED BY: [address] [address] PATHOLOGIST TOOLS ADMINISTRATOR MAXIM HERNANDEZ M.D.Performed By: #### CBC #### [facility] [address] [place] [address] USALDL Cholesterol,Rykmkctsex60 mg/dLNormal0-100The [facility] Physician [facility] CountyComment on above:Order Comment: FASTING YResult Comment: LDL ATP III CLASSIFICATION LDL less than 100 mg/dL Optimal LDL 100-129 mg/dL Near or above optimal LDL 130-159 mg/dL Borderline high LDL 160-189 mg/dL High LDL greater than 189 mg/dL Very highPerformed By: #### CBC #### [place] [id number] USATriglyceride w/Ovdbed46 mg/dLNormal0-149[facility] Physician GroupComment on above:Order Comment: FASTING YResult Comment: TRIG ATP III CLASSIFICATION TRIG less than 150 mg/dL Normal TRIG 150-199 mg/dL Borderline high TRIG 200-500 mg/dL High TRIG greater than 500 mg/dL Very high Standard traceable to the Center for Disease Conrtrol and Prevention (CDC) test method.Performed By: #### CBC #### [place] [address] USAVLDL TZCXLEIMUXU11 mg/dLNoFormerly [facility] Physician GroupComment on above:Order Comment: FASTING YPerformed By: #### CBC #### [place] [address] USATroponin I High Sensitivityon 10-96-3583Dykucmsl I High Gvuapiwoqqr37Ooiz0-55Hzd [facility] Physician GroupComment on above:Result Comment: The Troponin units of report have been changed to meet the Chest Pain Accreditation requirement, element EC5.M1l2. Troponin units are changed from pg/ml to ng/L. Also, the decimal is removed and results are in whole numbers. PERFORMED BY: [place] [address] PATHOLOGIST TOOLS ADMINISTRATOR MAXIM HERNANDEZ M.D.Performed By: #### BMP, CBC #### [place] [address] USATroponin I High Fgkndkzvenw58Avl scale high0-20ThSt. Luke's Jerome Physician GroupComment on above:Order Comment: Comment Add onResult Comment: Critical Result : Called to and read back by: ROCIO BOO at: 05/03/2025 10:18:05 by:[email or web address] The Troponin units of report have been changed to meet the Chest Pain Accreditation requirement, element EC5.M1l2. Troponin units are changed from pg/ml to ng/L. Also, the decimal is removed and results are in whole numbers. PERFORMED BY: [place] [address] PATHOLOGIST TOOLS ADMINISTRATOR MAXIM HERNANDEZ M.D.Performed By: #### BMP, CBC #### [place] [address] USATroponin I High Qvfdzfmtyqd21Mwg scale high0-20The [facility] Physician GroupComment on above:Result Comment: Critical Result : Called to and read back by: ERICA KIMBLE at: 05/03/2025 01:16:26 by:[id number] The Troponin units of report have been changed to meet the Chest Pain Accreditation requirement, element EC5.M1l2. Troponin units are changed from pg/ml to ng/L. Also, the decimal is removed and results are in whole numbers. PERFORMED BY: [place] [address] PATHOLOGIST TOOLS ADMINISTRATOR MAXIM HERNANDEZ M.D.Performed By: #### CBC #### [place] [address] USABNP ser/plasOrdered By: Muna Greene on 05-02-2025 Natriuretic peptide B (Bld) [Mass/Vol]222.0 pg/mLMinnie Hamilton Health Center5-100Flower HospitalComment on above:Result Comment: PERFORMED BY: [place] [address] PATHOLOGIST TOOLS ADMINISTRATOR MAXIM HERNANDEZ M.D.Performed By: #### BMP, CBC #### [place] [address] USABasic Metabolic Panelon 41-70-4193Fwzftzqhte Clr Calc Tzrdsygy17.92NoFormerly [facility] Physician GroupComment on above:Result Comment: PERFORMED BY: [place] [address] PATHOLOGIST TOOLS ADMINISTRATOR MAXIM HERNANDEZ M.D.Performed By: #### BMP, CBC #### [place] [address] USAGFR/1.73 sq M.predicted MDRD (S/P/Bld) [Vol rate/Area] mL/min/{1.73_m2}NormalThe [facility] Physician GroupComment on above:Performed By: #### BMP, CBC #### [place] [id number] USABasophils [#/volume] in Blood by Automated countOrdered By: Muna Greene on 34-64-7693Kgteuvdqn (Bld) [#/Vol]0.0 10*3/uLNormal0.0-0.2 [facility] HospitalComment on above:Result Comment: PERFORMED BY: [place] [address] PATHOLOGIST TOOLS ADMINISTRATOR MAXIM HERNANDEZ M.D.Performed By: #### BMP, CBC #### [address] [address] USABasophils/100 leukocytes in Blood by Automated count Ordered By: Muna Greene on 43-31-4282Pvzehghle/100 WBC (Bld)0.2 %Normal. [facility] HospitalComment on above:Performed By: #### BMP, CBC #### [address] [address] USABioFire Not Detectedon 10-72-6685PeyNyvq Not DetectedNot detectedNormalNot DetecteThe [facility] Physician GroupComment on above:Order Comment: Faxed Results to [facility] [phone] at 2623 on 05/09/25Result Comment: This is a duplicate RP2.1 COVID (PCR) result to be used for statistical tracking purpose only. PERFORMED BY: [address] [address] PATHOLOGIST TOOLS ADMINISTRATOR MAXIM HERNANDEZ M.D.Performed By: #### CBC #### [address] [address] USACalcium [Mass/volume] in Serum or PlasmaOrdered By: Muna Greene on 23-57-3902Hatblkn [Mass/Vol]9.7 mg/dLNormal8.6-10.3FGalion Community HospitalComment on above:Performed By: #### BMP, CBC #### [facility] [address] [place] [address] USACarbon dioxide, total [Moles/volume] in Serum or Plasma Ordered By: Muna Greene on 64-66-1454IJ2 [Moles/Vol]22.1 mmol/FWtaeaf40.0-31.0 [facility] HospitalComment on above:Performed By: #### BMP, CBC #### [facility] [address] [place] [address] USAChloride [Moles/volume] in Serum or PlasmaOrdered By: Muna Greene on 74-46-7780Olswyeas [Moles/Vol]105 mmol/EBpkdif33-171MsxxujgxeFlower HospitalComment on above:Performed By: #### BMP, CBC #### [place] [address] USAComplete Blood Count Auto Diffon 97-26-8509Qxnp Corpuscular HGB Conc34.6 g/qQRggfsj66.5-35.6The [facility] Physician GroupComment on above:Performed By: #### BMP, CBC #### [place] [address] USAMonocytes/100 WBC (Bld)19.32 %Normal0.00-20.00The [facility] Physician GroupComment on above:Performed By: #### BMP, CBC #### [place] [address] USANRBC%0.0 /100{WBC}Normal0-0.5The [facility] Physician Group Comment on above:Performed By: #### BMP, CBC #### [place] [address] USAWhite Blood Count2.8 [CFU]/mLLow4.1-10.5The [facility] Physician GroupComment on above:Performed By: #### BMP, CBC #### [place] [address] USACreatinine [Mass/volume] in Serum or PlasmaOrdered By: Muna Greene on 39-19-2023Yriubloxnu [Mass/Vol]0.88 mg/dLNormal0.70-1.30 [facility] HospitalComment on above:Performed By: #### BMP, CBC #### [facility] [address] [place] [address] USAECG 12 lead ECGon 69-14-5615VEO [address] [facility] Main [place] [address] [place] [address] Electrocardiograph Report Signed Patient: Tristin Powell MR#: [id number] : 1940 Acct:[id number] Age/Sex: 85 / M ADM Date: 05/02/25 Loc: Room: [address] [place] [address] Type: ADM INOo Attending Dr: Adiel Mccollum [...] previous ECGs available Confirmed by Kaylie Gifford ([id number]) on 05/03/2025 1:49:52 AM Referred By: Electronically Signed By: Kaylie Gifford Transcribed By: MUS Signed By Kaylie Gifford DO 05/03 0149[facility] Physician GroupEosinophils [#/volume] in Blood by Automated countOrdered By: Muna Greene on 40-77-3414Ialzidoauhk (Bld) [#/Vol] 0.0 10*3/uLNormal0.0-0.45F[facility] HospitalComment on above: Performed By: #### BMP, CBC #### [facility] [address] [place] [address] USAEosinophils/100 leukocytes in Blood by Automated count Ordered By: Muna Greene on 85-91-8956Lthtvmsusux/100 WBC (Bld)0.1 %Normal. [facility] HospitalComment on above:Performed By: #### BMP, CBC #### [place] [address] USAErythrocyte distribution width [Ratio] by Automated count Ordered By: Muna Greene on 09-83-3899Bhkyxmkxkkj distribution width (RBC) [Ratio]15.9 %High12.0-14.8Flower HospitalComment on above: Performed By: #### BMP, CBC #### [place] [id number] USAErythrocytes [#/volume] in Blood by Automated countOrdered By: Muna Greene on 66-89-5737PRZ (Bld) [#/Vol]3.65 10*6/uLLow3.90-5.60 [facility] HospitalComment on above:Performed By: #### BMP, CBC #### [place] [address] USAFerritinon 28-67-8340Rjmszkkq [Mass/Vol]211.0 ng/mLNormal 23.9-336.2The [facility] Physician GroupComment on above:Performed By: #### FOL, PT, CBC, BMP, HS TROP, BNP, B12, TIBC, FE, MARI ####[place] [id number] [place] [id number] USAFolateon 29-70-3940Ooaddp26.2 ng/mL Normal>5.9The [facility] Physician [facility] CountyComment on above:Result Comment: Folate reference range: >5.9 ng/ml The WHO technical consultation on folate and vitamin b12 deficiencies has determined that folate concentrations less than 4 ng/ml are considered deficient. PERFORMED BY: [place] [address] PATHOLOGIST TOOLS ADMINISTRATOR MAXIM HERNANDEZ M.D.Performed By: #### FOL, PT, CBC, BMP, HS TROP, BNP, B12, TIBC, FE, MARI ####[place] [id number] USAGlomerular filtration rate [Volume Rate/Area] in Serum, Plasma or Blood by CreatinineOrdered By: Muna Greene on 84-20-7318Gnzoyqwhrr filtration rate [Volume Rate/Area] in Serum, Plasma or Blood by Creatinine> 60.0 mL/MinFlower HospitalGlucose [Mass/volume] in Serum or PlasmaOrdered By: Muna Greene on 67-72-5895Aiiceso [Mass/Vol]164 mg/eBWytj65-754DeexyhufaFlower HospitalComment on above:ADA recommended reference rangeRandom Glucose Reference [...] reference rangePerformed By: #### BMP, CBC #### [address] [address] USAHematocrit [Volume Fraction] of Blood by Automated count Ordered By: Muna Greene on 54-22-0946Kdjtkoqfup (Bld) [Volume fraction]34.1 % Low38.8-50.0Flower HospitalComment on above:Performed By: #### BMP, CBC #### [facility] [address] [place] [address] USAHemoglobin [Mass/volume] in BloodOrdered By: Muna Greene on 25-24-0089Otueplzjjm (Bld) [Mass/Vol]11.8 g/dLLow13.0-17.0Flower HospitalComment on above:Performed By: #### BMP, CBC #### [address] [address] USAINR in Platelet poor plasma by Coagulation assayOrdered By: Muna Greene on 23-52-9755SHY Coag (PPP) [Relative time]1.2 {INR}Normal Flower HospitalComment on above:INR Therapeutic Range A) Pre- and [...] heart valves: 3 - 4.5 PERFORMED BY: [place] [address] PATHOLOGIST TOOLS ADMINISTRATOR MAXIM HERNANDEZ M.D.Performed By: #### BMP, CBC #### [place] [address] USAIronon 99-59-2197Khvw [Mass/Vol]21 ug/nGEgs04-501Gpd [facility] Physician GroupComment on above:Performed By: #### BMP, CBC #### [place] [id number] USALeukocytes [#/volume] corrected for nucleated erythrocytes in Blood by Automated counOrdered By: Muna Greene on 72-50-0722ZHV corrected for nucl RBC Auto (Bld) [#/Vol]2.8 10*3/uLLow4.1-10.5FGalion Community HospitalLeukocytes [#/volume] in Blood by Automated countOrdered By: Muna Greene on 66-32-9470RTR (Bld) [#/Vol]2.8 10*3/uLLow4.1-10.5FGalion Community HospitalComment on above:Performed By: #### BMP, CBC #### [facility] [address] [place] [address] USALymphocytes [#/volume] in Blood by Automated countOrdered By: Muna Greene on 69-39-2828Rcbyjbdqoba (Bld) [#/Vol]0.3 10*3/uLLow1.00-4.8 F[facility] HospitalComment on above:Performed By: #### BMP, CBC #### [facility] [address] [place] [id number] USALymphocytes/100 leukocytes in Blood by Automated count Ordered By: Muna Greene on 52-24-2044Giqterfamzl/100 WBC (Bld)9.8 %Normal. Flower HospitalComment on above:Performed By: #### BMP, CBC #### [facility] [address]H [Entitic mass] by Automated countOrdered By: Muna Greene on 88-54-2959AJA (RBC) [Entitic mass]32.3 lhYvyzzm39.5-35.2FGalion Community HospitalComment on above:Performed By: #### BMP, CBC #### [place] [address] USAHC Auto (RBC) [Mass/Vol]Ordered By: Muna Greene on 46-43-5339HTAJ (RBC) [Mass/Vol]34.6 g/dL32.5-35.6FGalion Community HospitalMCV [Entitic volume] by Automated countOrdered By: Muna Greene on 91-98-5933MST (RBC) [Entitic vol]93.4 nYVbptmu01.5-101Flower HospitalComment on above:Performed By: #### BMP, CBC #### [place] [address] USAMonocyte distribution width [Entitic volume] in Blood by AutomatedOrdered By: Muna Greene on 96-10-0775Qzrpcfbe distribution width Auto (Bld) [Entitic vol]19.32 %0.00-20.00Flower HospitalMonocytes [#/volume] in Blood by Automated countOrdered By: Muna Greene on 05-02-2025 Monocytes (Bld) [#/Vol]0.1 10*3/uLNormal0.0-0.8[facility] Comment on above:Performed By: #### BMP, CBC #### [place] [id number] USAMonocytes/100 leukocytes in Blood by Automated count Ordered By: Muna Greene on 84-82-8927Kmltxyrve/100 WBC (Bld)5.1 %Normal. Flower HospitalComment on above:Performed By: #### BMP, CBC #### [facility] [address] [place] [address] USANeutrophils [#/volume] in Blood by Automated countOrdered By: Muna Greene on 72-30-1478Hwqgfbjxxsc (Bld) [#/Vol]2.3 10*3/uLNormal1.8-7.7 F[facility] HospitalComment on above:Performed By: #### BMP, CBC #### [facility] [address] [place] [address] USANeutrophils/100 leukocytes in Blood by Automated count Ordered By: Muna Greene on 94-28-5057Fmqyusruhqf/100 WBC (Bld)84.8 %Normal. Flower HospitalComment on above:Performed By: #### BMP, CBC #### [facility] [address] [place] [address] USANo Panel InformationOrdered By: Muna Greene on 05-02-2025 Pharmacy Creatinine Clearance (Chem79.92[facility] Nucleated erythrocytes [Presence] in Blood by Automated countOrdered By: Muna Greene on 86-41-8956Tjrczbhby RBC Auto Ql (Bld)0.0 /100{WBC}0-0.5FGalion Community HospitalPlatelet mean volume [Entitic volume] in Blood by Automated countOrdered By: Muna Greene on 59-53-2259Giemstse mean volume (Bld) [Entitic vol]7.2 fLNormal6.6-10.1FGalion Community HospitalComment on above:Performed By: #### BMP, CBC #### [facility] [address] [place] [address] USAPlatelets [#/volume] in Blood by Automated countOrdered By: Muna Greene on 98-69-4083Qpaficrjn (Bld) [#/Vol]219 10*3/wJMpktlg687-235 [facility] HospitalComment on above:Performed By: #### BMP, CBC #### [facility] [address] [place] [address] USAPotassium [Moles/volume] in Serum or PlasmaOrdered By: Muna Ramona on 64-91-9328Owvjeajnn [Moles/Vol]4.9 mmol/LNormal3.5-5.1FGalion Community HospitalComment on above:Performed By: #### BMP, CBC #### [facility] [address] [place] [id number] USAProthrombin time (PT)Ordered By: Muna Greene on 30-14-6637BG Coag (PPP) [Time]14.1 sHigh9.0-12.9[facility] HospitalComment on above:A hematocrit value greater than 55% may lead to inaccurate results in coagulation testing. Patientshaving hematocrit values >55% require a special collection tube for coagulation studies. Please contact the laboratory at [phone] for redraw instructions.Result Comment: A hematocrit value greater than 55% may lead to inaccurate results in coagulation testing. Patients having hematocrit values >55% require a special collection tube for coagulation studies. Please contact the laboratory at [phone] for redraw instructions.Performed By: #### BMP, CBC #### [facility] [address] [place] [address] USARespiratory (Upper) Panel, PCRon 83-44-4979Mbgthoajnzy (Upper) Panel, PCRFaxed Results to [facility] [phone] at 1525 on 05/09/25 Adenovirus Not detected [...] Influenza A H3 Blank Space PERFORMED BY: [place] [address] PATHOLOGIST TOOLS ADMINISTRATOR MAXIM HERNANDEZ M.D.NormalThe [facility] Physician GroupComment on above: Performed By: #### CBC #### [facility] [address] [place] [address] USAReticulocyte Counton 91-58-9841Kysjnagnjytp Number0.046 10*6/uLNormal0.024-0.084The [facility] Physician GroupComment on above:Order Comment: Comment Add-onResult Comment: PERFORMED BY: [place] [address] PATHOLOGIST TOOLS ADMINISTRATOR MAXIM HERNANDEZ M.D.Performed By: #### BMP, CBC #### [facility] [address] [place] [address] USAReticulocyte Percent1.2 %Normal0.5-1.5The [facility] Physician GroupComment on above:Order Comment: Comment Add-onPerformed By: #### BMP, CBC #### [facility] [address] [place] [address] USASerum or plasma anion gap determinationOrdered By: Muna Greene on 72-91-8953Kaabc gap [Moles/Vol]13.8 mmol/LNormal6.0-15.0[facility] HospitalComment on above:Performed By: #### BMP, CBC #### [place] [address] USASodium [Moles/volume] in Serum or PlasmaOrdered By: Munageovani Greene on 12-38-2108Crciyr [Moles/Vol]136 mmol/REwmlog524-442FmszojefzFlower HospitalComment on above:Performed By: #### BMP, CBC #### [place] [address] USATotal Iron Binding Capacityon 97-28-5953Awvej Iron Binding Gxsqcwbj735 ug/uACugupg639-465Gip [facility] Physician GroupComment on above: Performed By: #### BMP, CBC #### [place] [address] USATransferrin [Mass/Vol]192 mg/vEXpi221-641Eyo [facility] Physician [facility] Hospital [facility] Stone CountyComment on above:Performed By: #### BMP, CBC #### [place] [address] USATroponin I High Sensitivityon 05-77-1708Frmlctca I High Enoynkqwpbw81Givl5-23Mkk [facility] Physician [facility] Stone CountyComment on above:Result Comment: The Troponin units of report have been changed to meet the Chest Pain Accreditation requirement, element EC5.M1l2. Troponin units are changed from pg/ml to ng/L. Also, the decimal is removed and results are in whole numbers. PERFORMED BY: [place] [address] PATHOLOGIST TOOLS ADMINISTRATOR MAXIM HERNANDEZ M.D.Performed By: #### MRSA - MSSA PCR #### [place] [address] USATroponin I High Iidlnwwlxnw80Nabf3-25Fyd [facility] Physician GroupComment on above:Result Comment: The Troponin units of report have been changed to meet the Chest Pain Accreditation requirement, element EC5.M1l2. Troponin units are changed from pg/ml to ng/L. Also, the decimal is removed and results are in whole numbers. PERFORMED BY: [place] [address] PATHOLOGIST TOOLS ADMINISTRATOR MAXIM HERNANDEZ M.D.Performed By: #### CBC #### [facility] [address] [place] [address] USATroponin I High Dimkiyodfrt61Gfez3-52Rpm [facility] Physician GroupComment on above:Result Comment: The Troponin units of report have been changed to meet the Chest Pain Accreditation requirement, element EC5.M1l2. Troponin units are changed from pg/ml to ng/L. Also, the decimal is removed and results are in whole numbers. PERFORMED BY: [facility] [address] [place] [address] PATHOLOGIST TOOLS ADMINISTRATOR MAXIM HERNANDEZ M.D.Performed By: #### BMP, CBC #### [facility] [address] [place] [address] USATroponin I.cardiac [Mass/volume] in Serum or Plasma by Detection limit <= 0.01 ng/mLOrdered By: Mell Hou on 78-96-5243Kmhqagix I.cardiac DL <= 0.01 ng/mL [Mass/Vol]46 ng/LHigh0-20[facility] HospitalComment on above:The Troponin units of report have been changed to meet the Chest Pain Accreditation requirement, element EC5.M1l2. Troponin units are changed from pg/ml to ng/L. Also, the decimal is removed and results are in whole numbers.Urea nitrogen [Mass/volume] in Serum or PlasmaOrdered By: Muna Greene on 82-66-9838Ebnr nitrogen [Mass/Vol]17 mg/dLNormal7-25[facility] HospitalComment on above:Performed By: #### BMP, CBC #### [facility] [address] [place] [id number] USAVitamin B12on 41-23-0285Ynwsxkuat (Vitamin B12) [Mass/Vol] 269 pg/rPDovegr408-432Jih [facility] Physician GroupComment on above:Performed By: #### FOL, PT, CBC, BMP, HS TROP, BNP, B12, TIBC, FE, MARI ####[facility] [address] [place] [address] USAX-ray reportOrdered By: Cristian Rodriguez on 07-00-7316Mifrd reportMOUNT ST. [facility]ARY [facility] Main [place] [address] [place] [address] XRay Report Signed Patient: Tristin Powell MR#: [id number] : 1940 Acct:[id number] Age/Sex: 85 / M ADM Date: 5 Loc: ER Room: Type: [facility] ER Attending Dr: Copies to: [...] Rodriguez M.D. 05/02/2025 4:35 PM Dictation Location: [facility]-PC-20 Transcribed By: [facility] 05/02/25 1635 Dictated By: Cristian Rodriguez DO 05/02/25 1633 Signed By: 05/02/25 1635 [facility] HospitalXR chest 2V*on 93-68-3701QF chest 2V*[facility] Main [address] [address] XRay Report Signed Patient: Tristin Powell MR#: [id number] : 1940 Acct:[id number] Age/Sex: 85 / M ADM Date: 05/02/25 Loc: ER Room: Type: [facility] ER Attending Dr: Copies to: [...] Rodriguez M.D. 05/02/2025 4:35 PM Dictation Location: [facility]-PC-20 Transcribed By: [facility] 05/02/25 1635 Dictated By: Cristian Rodriguez DO 05/02/25 1633 Signed By: 05/02/25 1635[facility] GroupMADERA COMM[facility] BASIC METABOLIC PANELon 46-94-2626Ivqjy gap [Moles/Vol]13.9 mmol/LNOMS HealthcareCalcium [Mass/Vol]9.3 mg/dL8.5 - 10.1 mg/dLNOMS HealthcareChloride [Moles/Vol]106 mmol/L98 - 107 mmol/LNOMS HealthcareCO2 [Moles/Vol]24.9 mmol/L21.0 - 32.0 mmol/LNOMS Healthcare Creatinine [Mass/Vol]1.04 mg/dL0.70 - 1.30 mg/dLNOVT HealthcareGFR/1.73 sq M.predicted CKD-EPI (S/P/Bld) [Vol rate/Area]>60>=60 mL/min/1.73m 2NOMS HealthcareGlucose [Mass/Vol]103 mg/dL74 - 106 mg/dLNOVT HealthcarePotassium [Moles/Vol]4.8 mmol/L3.5 - 5.1 mmol/LNOMS HealthcareSodium [Moles/Vol]140 mmol/L 136 - 145 mmol/LNOMS HealthcareTBH EGFR-NON AF JAMAICAN>60>=60 mL/min/1.73m 2 NOMS HealthcareUrea nitrogen [Mass/Vol]13 mg/dL7.0 - 18.0 mg/dLNOVT Healthcare Urea nitrogen/Creatinine [Mass ratio]12.5 mg/mgNOMS HealthcareCLINISYNCNOMS HealthcareALL C REACTIVE PROTEINon 04-30-2025 REACTIVE PROTEIN3.08 mg/dLHigh NINF - 0.50 mg/dLNOVT HealthcareInterpretation and review of laboratory results AbnormalNOMS HealthcareCLINISYNCNOMS HealthcareUS ANKLE/BRACHIAL INDICES EXTREMITY LIMITEDon 34-37-3722RD ANKLE/BRACHIAL INDICES EXTREMITY LIMITEDPatient Info Name: Tristin Powell Age: 85 years : 1940 Gender: Male Exam Date: 04/23/2025 12:53 PM Patient Status: OUTPATIENT Site Location: [facility] Indications I73.9 - Peripheral vascular disease, unspecified 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 Insurance Agent: Ying Fiore RDCS, RVT Staff Ordering [...] Segmental BP RIGHT Brachial A mmH RIGHT SENIOR BIOINFORMATICS SPECIALIST mmH RIGHT SENIOR BIOINFORMATICS SPECIALIST Index: 0.96 RIGHT DPA mmH RIGHT DPA Index: 0.92 RIGHT YAMILE Index: 0.96 LEFT Brachial A mmH LEFT SENIOR BIOINFORMATICS SPECIALIST Index: 0.48 LEFT SENIOR BIOINFORMATICS SPECIALIST mmH LEFT DPA Index: 0.61 LEFT DPA mmH LEFT YAMILE Index: 0.61 Doppler RIGHT SENIOR BIOINFORMATICS SPECIALIST Waveform: Multiphasic RIGHT DPA Waveform: Multiphasic LEFT SENIOR BIOINFORMATICS SPECIALIST Waveform: Monophasic LEFT DPA Waveform: Monophasic , PVR RIGHT Ankle Grade: Abnormal RIGHT Transmetarsal Grade: Abnormal LEFT Ankle Grade: Abnormal Report Signatures Finalized by Nemo Conner MD, PHD, RVT on 04/23/2025 02:41 PMNormal [facility] DUPLEX LE BYPASS GRAFT COMPL BILATon 59-21-8247VR DUPLEX LE BYPASS GRAFT COMPL BILATPatient Info Name: Tristin Powlel Age: 85 years : 1940 Gender: Male Exam Date: 04/23/2025 12:53 PM Patient Status: OP SERIES Site Location: [facility] Indications I73.9 - Peripheral vascular disease, unspecified 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 Insurance Agent: Jigna Vera RDMS, RVT Staff Ordering Physician: [...] Artery Segment: Gabriela LEFT Inflow Artery Segment: AIR DUCT MECHANIC LEFT Inflow Artery PSV: 126 LEFT Inflow [...] Leonard MD, RPVI, RVT on 04/23/2025 02:41 PMNormalRiversWhite HospitalXR FOOT RT MIN 3Von 60-02-4059Gim[address] [place] [address] XRay Report Signed Patient: TRISTIN POWELL MR#: [id number] : 1940 Acct:[id number] Age/Sex: 85 / M ADM Date: 04/15/25 Loc: RAD Attending Dr: Savanna Feliz D.P.M. Ordering Physician: Savanna Feliz D.P.M. Date of Service: 04/15/25 Procedure(s): XR foot RT min 3V Accession Number(s): [id number] cc: FLASH LOVELACE ; Savanna Feliz D.P.M. The [address] [address] Patient Name: TRISTIN POWELL MRN: [id number] date: 1940 Sex: M Assigned Patient Location: [facility] Current Patient Location: Accession/Order Number: [id number] Exam Date: 04/16/2025 12:46 Report Date: 04/16/2025 [...] Rodriguez M.D. 04/16/2025 12:49 PM Dictation Location: [place] [address] Electronically authenticated by: [id number] Y Date: 04/16/2025 12:49 Dictated By: Cristian Rodriguez D.O. Signed By: 04/16/25 1252 DD/ 1249 TD/TT: Residential Supervisor:HARINIHRadiology, Radiologist, - 04/16/2025 [place] [address] XRay Report Signed Patient: TRISTIN POWELL MR#: [id number] : 1940 Acct:[id number] Age/Sex: 85 / M ADM Date: 04/15/25 Loc: RAD Attending Dr: Savanna Feliz D.P.M. Ordering Physician: Savanna Feliz D.P.M. Date of Service: 04/15/25 Procedure(s): XR foot RT min 3V Accession Number(s): [id number] cc: FLASH LOVELACE ; Savanna Feliz D.P.M. [place] [address] Patient Name: TRISTIN POWELL MRN: [id number] date: 1940 Sex: M Assigned Patient Location: [facility] Current Patient Location: Accession/Order Number: [id number] Exam Date: 04/16/2025 12:46 Report Date: 04/16/2025 [...] Rodriguez M.D. 04/16/2025 12:49 PM Dictation Location: [place] [address] Electronically authenticated by: [id number] Y Date: 04/16/2025 12:49 Dictated By: Cristian Rodriguez D.O. Signed By: 04/16/25 1252 DD/ 1249 TD/TT: Residential Supervisor: JAE HealthcareRadiology Study observation (narrative)NOMS HealthcareXR FOOT RT MIN 3VOrdered By: Radiologist Radiology on 05-43-9832QNUB Healthcare Work Phone: all CBC WITH AUTO DIFFon 59-99-8124BZWFINPYK ABSOLUTE ZIPE8FPJQ HealthcareBasophils/100 WBC (Bld)0.6 %0.2 - 2.0 %[facility] Eosinophils/100 WBC (Bld)5.9 %0.9 - 7.0 %NOMS HealthcareErythrocyte distribution width (RBC) [Ratio]15.2 %High11.0 - 15.0 %NOMS HealthcareHematocrit (Bld) [Volume fraction]35.1 %Low42.0 - 54.0 %NOMS HealthcareHemoglobin (Bld) [Mass/Vol]11.8 g/dLLow14.0 - 18.0 g/dLNOVT HealthcareIMMATURE GRANULOCYTES ABS AUTO0.02NOMS HealthcareImmature granulocytes/100 WBC (Bld)0.6 %High0.0 - 0.5 % NOMS HealthcareInterpretation and review of laboratory resultsAbnormalNOVT HealthcareLYMPHOCYTES ABSOLUTE AUTO0.8LowNOMS HealthcareLymphocytes/100 WBC (Bld)24.1 %20.5 - 60.0 %NOMDeaconess Incarnate Word Health SystemH (RBC) [Entitic mass]31.2 pg25.9 - 34.0 pgNONorthwest Medical CenterHC (RBC) [Mass/Vol]33.6 g/dL29.9 - 35.2 g/dLKansas City VA Medical CenterMCV (RBC) [Entitic vol]92.9 fL80.0 - 94.0 fLNOVT HealthcareMONOCYTES ABSOLUTE AUTO0.6NOMS HealthcareMonocytes/100 WBC (Bld)18.9 %High1.7 - 12.0 %NOMS HealthcareNEUTROPHILS ABSOLUTE AUTO1.6NOMS HealthcareNeutrophils/100 WBC (Bld) 49.9 %43.0 - 75.0 %NOM HealthcarePlatelet mean volume (Bld) [Entitic vol]8.9 fL Low9.5 - 13.5 fLNOMissouri Rehabilitation CenterTBH EO #0.2NOMS HealthcareTB ZVO522UCHR Peoples HospitalTB RBC3.78LowNOMS Peoples HospitalTB WBC3.2LowNOMS HealthcareCLINISYNCNOMS HealthcareMR FOOT RIGHT WO IV CONTRASTon 60-84-3959MS FOOT RIGHT WO IV CONTRAST EXAM: MR [...] BY: Mckenna BaermalNot AvailableHERPES SIMPLEX VIRUS 1on 26-60-4598POUMON SIMPLEX VIRUS 10NOMS HealthcareHERPES SIMPLEX VIRUS 1 Not detectedNOMS HealthcareHERPES SIMPLEX VIRUS 20NOMS HealthcareHERPES SIMPLEX VIRUS 2Not detectedNOMS HealthcareHUMAN MONKEYPOX CBPCM5EPXV HealthcareHUMAN MONKEYPOX VIRUSNot detectedNOMS HealthcareVARICELLA ZOSTER VIRUS (HUMAN HERPESVIRUS 3)0NOMS HealthcareVARICELLA ZOSTER VIRUS (HUMAN HERPESVIRUS 3)Not detectedNOMS HealthcareNOMS HealthcareBASIC METABOLIC PANELon 35-72-4987Eefbc gap [Moles/Vol]14 mmol/MVkschu41-90Enysyzmzx [facility] – PflugervilleComment on above: Order Comment: [facility] has implemented the eGFR calculation approach that does not have a coefficient for race that conforms to the NKF-ASN Task Force Recommendations.Performed By: #### 13067 ####[facility] [address] [place] [address] Emmanuel Plata M.D. [id number] [Mass/Vol]9.4 mg/dLNormal8.4-10.2[facility] – PflugervilleComment on above:Order Comment: [facility] has implemented the eGFR calculation approach that does not have a coefficient for race that conforms to the NKF-ASN Task Force Recommendations.Performed By: #### [address] ####[address] [address] Emmanuel Plata M.D. [id number] [Moles/Vol] 108 mmol/NUrmktg78-568VhtrtcxzxCleveland Clinic [facility] on above:Order Comment: [facility] has implemented the eGFR calculation approach that does not have a coefficient for race that conforms to the NKF-ASN Task Force Recommendations.Performed By: #### 11726 ####[address] [address] Emmanuel Plata M.D. [id number] [Mass/Vol]0.98 mg/dLNormal0.80-1.30 [facility] on above:Order Comment: [facility] has implemented the eGFR calculation approach that does not have a coefficient for race that conforms to the NKF-ASN Task Force Recommendations.Performed By: #### [address] ####[address] [address] Emmanuel Plata M.D. [id number] mL/min/1.73 e0Kqpxjn>=60RiCleveland Clinic [facility] on above:Order Comment: [facility] has implemented the eGFR calculation approach that does not have a coefficient for race that conforms to the NKF-ASN Task Force Recommendations.Result Comment: Estimated GFR was calculated using the 2020 CKD-EPI creatinine equation.Performed By: #### [address] ####[address] [address] Emmanuel Plata M.D. [id number] [Mass/Vol]109 mg/hVGlxc12-01 [facility] on above:Order Comment: [facility] has implemented the eGFR calculation approach that does not have a coefficient for race that conforms to the NKF-ASN Task Force Recommendations.Performed By: #### 520[address] ####[facility] [address] [place], [place] [address] Emmanuel Plata M.D. [id number] (Bld) [Moles/Vol]22 mmol/OOzpfnn55-30CquijupfxDoctors Hospital Comment on above:Order Comment: [facility] has implemented the eGFR calculation approach that does not have a coefficient for race that conforms to the NKF-ASN Task Force Recommendations.Performed By: #### 69351 ####[facility] [address] [place] [address] Emmanuel Plata M.D. [id number] [Moles/Vol]4.0 mmol/L Normal3.5-5.1RHocking Valley Community HospitalComment on above:Order Comment: [facility] has implemented the eGFR calculation approach that does not have a coefficient for race that conforms to the NKF-ASN Task Force Recommendations.Result Comment: Slightly HemolyzedPerformed By: #### 99199 ####[facility] [address] [place], [place] [address] Emmanuel Plata M.D. [id number] [Moles/Vol]140 mmol/LNormal 135-145RiDoctors HospitalComment on above:Order Comment: [facility] has implemented the eGFR calculation approach that does not have a coefficient for race that conforms to the NKF-ASN Task Force Recommendations.Performed By: #### 78642 ####[facility] [address] [place], [place] [address] Emmanuel Palta M.D. [id number] nitrogen [Mass/Vol]19 mg/dLNormal8-25RiDoctors Hospital Comment on above:Order Comment: [facility] has implemented the eGFR calculation approach that does not have a coefficient for race that conforms to the NKF-ASN Task Force Recommendations.Performed By: #### 38417 ####[facility] [address] [place] [address] Emmanuel Plata M.D. [id number] nitrogen/Creatinine [Mass ratio]19.4 mg/ewLszfoq25.0-20.0RiDoctors HospitalComment on above: Order Comment: [facility] Services has implemented the eGFR calculation approach that does not have a coefficient for race that conforms to the NKF-ASN Task Force Recommendations.Performed By: #### 71581 ####[facility] [address] [place] [address] Emmanuel Plata M.D. [id number] metabolic 2000 panelOrdered By: Beka Aiken on 94-31-6645Ceqzr gap [Moles/Vol]14 mmol/L10 - 20 mmol/LOhioHealth Calcium [Mass/Vol]9.4 mg/dL8.4 - 10.2 mg/dLOhioHealthChloride [Moles/Vol]108 mmol/L98 - 108 mmol/LOhioHealthCreatinine [Mass/Vol]0.98 mg/dL0.80 - 1.30 mg/dL [facility] HospitalGFR/1.73 sq M.predicted CKD-EPI (S/P/Bld) [Vol rate/Area]75- PINF [facility] HospitalComment on above:Estimated GFR was calculated using the 2020 CKD-EPI creatinine equation.Glucose [Mass/Vol]109 mg/zOQqjn74 - 99 mg/dLOhioHealthHCO3 [Moles/Vol]22 mmol/L21 - 32 mmol/LOhioHealthInterpretation and review of laboratory resultsAbnormalOhioHealthPotassium [Moles/Vol]4 mmol/L3.5 - 5.1 mmol/LOhioHealthComment on above:Slightly HemolyzedSodium [Moles/Vol]140 mmol/L 135 - 145 mmol/LOhioHealthUrea nitrogen [Mass/Vol]19 mg/dL8 - 25 mg/dLOhioHealth Urea nitrogen/Creatinine [Mass ratio]19.4 mg/mg10.0 - 20.0OhioOhioHealth [facility] has implemented the eGFR calculation approach that does not have a coefficient for race that conforms to the NKF-ASN Task Force Recommendations.[facility] 05-63-8892GEOG NRBC0.0 %NormalRiDoctors HospitalComment on above:Performed By: #### 77446 #### [facility] [address] [place] [address] Emmanuel Plata M.D. [id number] NRBC ABS COUNT0.00 K/mcLNormal0.00-0.00RiMercy Health Springfield Regional Medical Center HospitalComment on above:Performed By: #### 68991 #### [facility] [address] [place] [address] Emmanuel Plata M.D. [id number] distribution width (RBC) [Ratio]13.7 %Fbhume79.6-14.8 [facility] HospitalComment on above:Performed By: #### 73572 #### [facility] [address] [place] [address] Emmanuel Plata M.D. [id number] (Bld) [Volume fraction]30.0 %Low41.0-53.0RiversAdena Pike Medical Center HospitalComment on above:Performed By: #### 51437 #### [facility] [address] [place] [address] Emmanuel Plata M.D. [id number] (Bld) [Mass/Vol]10.5 g/dLLow13.5-17.5RiMercy Health Springfield Regional Medical Center HospitalComment on above:Performed By: #### 79057 #### [facility] [address] [place], [place] [address] Emmanuel Plata M.D. [id number] (RBC) [Entitic mass]33.2 kyCcmgxy35.0-34.0RiMercy Health Springfield Regional Medical Center HospitalComment on above:Performed By: #### 70012 #### [facility] [address] [place] [address] Emmanuel Plata M.D. [id number] (RBC) [Entitic vol]94.9 lHIplbhj87.0-100.0RiMercy Health Springfield Regional Medical Center HospitalComment on above:Performed By: #### 36619 #### [facility] [address] [place] [address] Emmanuel Plata M.D. [id number] CORPUSCULAR HEMOGLOBIN CONC35.0 g/fNCufmev04.0-37.0RiMercy Health Springfield Regional Medical Center HospitalComment on above:Performed By: #### 33900 #### [facility] [address] [place] [address] Emmanuel Plata M.D. [id number] mean volume (Bld) [Entitic vol]9.7 fLNormal9.4-12.4RiversAdena Pike Medical Center HospitalComment on above:Performed By: #### 20016 #### [facility] [address] [place] [address] Emmanuel Plata M.D. [id number] (Bld) [#/Vol]213 10*3/lAZrgzfr446-061Cnudlxbgc Methodist HospitalComment on above:Performed By: #### 31188 #### [facility] [address] [place] [address] Emmanuel Plata M.D. [id number] (Bld) [#/Vol]3.16 10*6/uLLow4.50-5.90RiDoctors Hospital Comment on above:Performed By: #### [id number] #### [facility] [address] [place] [address] Emmanuel Plata M.D. [id number] (Bld) [#/Vol]4.33 10*3/uLLow4.50-11.00[facility] Comment on above:Performed By: #### [id number] #### [facility] [address] [place] [address] Emmanuel Plata M.D. [id number] panel Auto (Bld)on 17-22-1569Iepgnjqpmkk distribution width (RBC) [Entitic vol]13.7 %11.6 - [...] 3.16 10*6/uLLowOhioHealthWBC (Bld) [#/Vol]4.33 10*3/uLLowOhioHealthOhioHealth MAGNESIUM LEVELon 54-92-4586Vmmskajvb [Mass/Vol]2.1 mg/dLNormal1.6-2.4RHocking Valley Community HospitalComment on above:Performed By: #### [id number] #### [facility] [address] [place] [address] Emmanuel Plata M.D. [id number] 66-40-1276Ohxrvigkx [Mass/Vol]2.1 mg/dL1.6 - 2.4 mg/dL OhioHealthMagnesium [Mass/Vol]on 75-60-9003Bnojboknfnwivc and review of laboratory resultsNormalOhioHealthNo Panel Informationon 38-12-8226AbwvRemuzo BASIC METABOLIC PANELon 05-76-8321Qusde gap [Moles/Vol]14 mmol/NYonspp40-66 [facility] HospitalComment on above:Order Comment: [facility] has implemented the eGFR calculation approach that does not have a coefficient for race that conforms to the NKF-ASN Task Force Recommendations.Performed By: #### [id number] #### [facility] [address] [place] [address] Emmanuel Plata M.D. [id number] [Mass/Vol]8.5 mg/dLNormal8.4-10.2[facility] Comment on above:Order Comment: [facility] has implemented the eGFR calculation approach that does not have a coefficient for race that conforms to the NKF-ASN Task Force Recommendations.Performed By: #### [id number] #### [facility] [address] [place] [address] Emmanuel Plata M.D. [id number] [Moles/Vol]107 mmol/EBwzfpl66-492LlnlqdcijDoctors Hospital Comment on above:Order Comment: [facility] has implemented the eGFR calculation approach that does not have a coefficient for race that conforms to the NKF-ASN Task Force Recommendations.Performed By: #### [id number] #### [facility] [address] [place] [address] Emmanuel Plata M.D. [id number] [Mass/Vol]0.97 mg/dLNormal0.80-1.30RiDoctors HospitalComment on above:Order Comment: [facility] has implemented the eGFR calculation approach that does not have a coefficient for race that conforms to the NKF-ASN Task Force Recommendations.Performed By: #### [id number] #### [facility] [address] [place] [address] Emmanuel Plata M.D. [id number] mL/min/1.73 g9Mjkrit>=60RiDoctors HospitalComment on above:Order Comment: [facility] has implemented the eGFR calculation approach that does not have a coefficient for race that conforms to the NKF-ASN Task Force Recommendations.Result Comment: Estimated GFR was calculated using the 2020 CKD-EPI creatinine equation.Performed By: #### [id number] #### [facility] [address] [place], [place] [address] Emmanuel Plata M.D. [id number] [Mass/Vol]97 mg/eFAdpnph71-89UwafndomzParkview Health [facility] Hospital Comment on above:Order Comment: [facility] has implemented the eGFR calculation approach that does not have a coefficient for race that conforms to the NKF-ASN Task Force Recommendations.Performed By: #### [id number] #### [facility] [address] [place], [place] [address] Emmanuel Plata M.D. [id number] (Bld) [Moles/Vol]22 mmol/JOwpvda41-59CllpcciqqDoctors Hospital Comment on above:Order Comment: [facility] has implemented the eGFR calculation approach that does not have a coefficient for race that conforms to the NKF-ASN Task Force Recommendations.Performed By: #### [id number] #### [facility] [address] [place], [place] [address] Emmanuel Plata M.D. [id number] [Moles/Vol]4.1 mmol/LNormal3.5-5.1RHocking Valley Community HospitalComment on above:Order Comment: [facility] has implemented the eGFR calculation approach that does not have a coefficient for race that conforms to the NKF-ASN Task Force Recommendations.Performed By: #### [id number] #### [facility] [address] [place], [place] [address] Emmanuel Plata M.D. [id number] [Moles/Vol]139 mmol/CTtqxqe636-194VtuxufmdnDoctors Hospital Comment on above:Order Comment: [facility] has implemented the eGFR calculation approach that does not have a coefficient for race that conforms to the NKF-ASN Task Force Recommendations.Performed By: #### [id number] #### [facility] [address] [place] [address] Emmanuel Plata M.D. [id number] nitrogen [Mass/Vol]20 mg/dLNormal8-25RiDoctors Hospital Comment on above:Order Comment: [facility] has implemented the eGFR calculation approach that does not have a coefficient for race that conforms to the NKF-ASN Task Force Recommendations.Performed By: #### [id number] #### [facility] [address] [place] [address] Emmanuel Plata M.D. [id number] nitrogen/Creatinine [Mass ratio]20.6 mg/reRlxy53.0-20.0RiDoctors HospitalComment on above:Order Comment: [facility] has implemented the eGFR calculation approach that does not have a coefficient for race that conforms to the NKF-ASN Task Force Recommendations.Performed By: #### [id number] #### [facility] [address] [place] [address] Emmanuel Plata M.D. [id number] metabolic 2000 panelon 06-06-4759Usvsv gap [Moles/Vol]14 mmol/L 10 - 20 mmol/LOhioHealthCalcium [...] mg/dL8 - 25 mg/dLOhioHealthUrea nitrogen/Creatinine [Mass ratio]20.6 mg/gjYxka59.0 - 20.0OhioMercy Health Allen HospitalioPomerene [facility] has implemented the eGFR calculation approach that does not have a coefficient for race that conforms to the NKF-ASN Task Force Recommendations.[facility] 25-54-8156VBEN NRBC0.0 %NormalRiMercy Health Springfield [facility] Center HospitalComment on above: Performed By: #### [id number] #### [facility] [address] [place] [address] Emmanuel Plata M.D. [id number] NRBC ABS COUNT0.00 K/mcLNormal0.00-0.00RiDoctors HospitalComment on above:Performed By: #### [id number] #### [facility] [address] [place] [address] Emmanuel Plata M.D. [id number] distribution width (RBC) [Ratio]13.8 %Zflbma31.6-14.8 [facility] HospitalComment on above:Performed By: #### [id number] #### [facility] [address] [place], [place] [address] Emmanuel Plata M.D. [id number] (Bld) [Volume fraction]29.1 %Low41.0-53.0RiDoctors HospitalComment on above:Performed By: #### [id number] #### [facility] [address] [place] [address] Emmanuel Plata M.D. [id number] (Bld) [Mass/Vol]10.0 g/dLLow13.5-17.5RiMercy Health Springfield Regional Medical Center HospitalComment on above:Performed By: #### [id number] #### [facility] [address] [place] [address] Emmanuel Plata M.D. [id number] (RBC) [Entitic mass]33.3 fmHjqnuk04.0-34.0RiversAdena Pike Medical Center HospitalComment on above:Performed By: #### [id number] #### [facility] [address] [place] [address] Emmanuel Plata M.D. [id number] (RBC) [Entitic vol]97.0 sNKxtutb05.0-100.0[facility] Worship HospitalComment on above:Performed By: #### [id number] #### [facility] [address] [place] [address] Emmanuel Plata M.D. [id number] CORPUSCULAR HEMOGLOBIN CONC34.4 g/xNWrhuko95.0-37.0Rivershawkins county memorial hospital Worship HospitalComment on above:Performed By: #### [id number] #### [facility] [address] [place] [address] Emmanuel Plata M.D. [id number] mean volume (Bld) [Entitic vol]9.8 fLNormal9.4-12.4R[facility]ide Worship HospitalComment on above:Performed By: #### [id number] #### [facility] [address] [place] [address] Emmanuel Plata M.D. [id number] (Bld) [#/Vol]167 10*3/aZRikgqy337-542Vljigxtmq Methodist HospitalComment on above:Performed By: #### [id number] #### [facility] [address] [place] [address] Emmanuel Plata M.D. [id number] (Bld) [#/Vol]3.00 10*6/uLLow4.50-5.90RiDoctors Hospital Comment on above:Performed By: #### [id number] #### [facility] [address] [place] [address] Emmanuel Plata M.D. [id number] (Bld) [#/Vol]4.86 10*3/uLNormal4.50-11.00RiDoctors HospitalComment on above:Performed By: #### [id number] #### [facility] [address] [place] [address] Emmanuel Plata M.D. [id number] panel Auto (Bld)on 11-46-0212Lxprmhbjxnj distribution width (RBC) [Entitic vol]13.8 %11.6 - [...] (Bld) [#/Vol]3 10*6/uLLowOhioHealthWBC (Bld) [#/Vol]4.86 10*3/uLOhioHealthOhioHealthMAGNESIUM LEVELon 41-82-1494Chpyqyftj [Mass/Vol]2.2 mg/dLNormal1.6-2.4RHocking Valley Community HospitalComment on above:Performed By: #### [id number] #### [facility] [address] [address] Emmanuel Plata M.D. [id number] 09-45-4198Dayebxmic [Mass/Vol]2.2 mg/dL1.6 - 2.4 mg/dL [facility] DakotaHealthMagnesium [Mass/Vol]on 74-84-9803Zxsblvvqhwwsgz and review of laboratory resultsNormalOhioHealthNo Panel Informationon 38-83-7865IuxyCxyxsvXY ANKLE/BRACHIAL INDICES EXTREMITY LIMITEDon 22-42-3094SE ANKLE/BRACHIAL INDICES EXTREMITY LIMITEDPatient Info Name: Tristin Powell Age: 85 years : 1940 Gender: Male Exam Date: 03/20/2025 8:42 AM Patient Status: INPATIENT Site Location: [facility] Indications I73.9 - Peripheral vascular disease, unspecified Procedure Description 80663 Limited bilateral noninvasive physiologic studies of upper or lower extremity arteries with bidirectional Doppler/PVR waveform analysis at 1-2 levels. Insurance Agent: Maggy Dempsey T Staff Ordering Physician: Beena [...] Segmental BP RIGHT Brachial A mmH RIGHT SENIOR BIOINFORMATICS SPECIALIST mmH RIGHT SENIOR BIOINFORMATICS SPECIALIST Index: 0.53 RIGHT DPA mmH RIGHT DPA Index: 0.57 RIGHT Digit mmH RIGHT YAMILE Index: 0.57 RIGHT TBI Index: 0.00 LEFT SENIOR BIOINFORMATICS SPECIALIST Index: 0.36 LEFT SENIOR BIOINFORMATICS SPECIALIST mmH LEFT DPA Index: 0.41 LEFT DPA mmH LEFT YAMILE Index: 0.41 Doppler RIGHT SENIOR BIOINFORMATICS SPECIALIST Waveform: Monophasic RIGHT DPA Waveform: Monophasic LEFT SENIOR BIOINFORMATICS SPECIALIST Waveform: Monophasic LEFT DPA Waveform: Monophasic , PVR RIGHT Ankle Grade: Abnormal RIGHT Transmetarsal Grade: Abnormal RIGHT Digit (PPG) Grade: Absent LEFT Ankle Grade: Abnormal Prior Interventions 03/17/2025 right femoral and tibial bypass graft-. 03/17/2025 right femoral and tibial Report Signatures Finalized by Sylvia Meyer MD, RPVI, FSIR on 03/20/2025 09:40 AMNormal [facility] ANKLE/BRACHIAL INDICES EXTREMITY LIMITEDPatient Info Name: Tristin Powell Age: 85 years : 1940 Gender: Male Exam Date: 03/20/2025 8:42 AM Patient Status: INPATIENT Site Location: [facility] Indications I73.9 - Peripheral vascular disease, unspecified Procedure Description 91066 Limited bilateral noninvasive physiologic studies of upper or lower extremity arteries with bidirectional Doppler/PVR waveform analysis at 1-2 levels. Insurance Agent: Maggy Dempsey T Staff Ordering Physician: Beena [...] Segmental BP RIGHT Brachial A mmH RIGHT SENIOR BIOINFORMATICS SPECIALIST mmH RIGHT SENIOR BIOINFORMATICS SPECIALIST Index: 0.53 RIGHT DPA mmH RIGHT DPA Index: 0.57 RIGHT Digit mmH RIGHT YAMILE Index: 0.57 RIGHT TBI Index: 0.00 LEFT SENIOR BIOINFORMATICS SPECIALIST Index: 0.36 LEFT SENIOR BIOINFORMATICS SPECIALIST mmH LEFT DPA Index: 0.41 LEFT DPA mmH LEFT YAMILE Index: 0.41 Doppler RIGHT SENIOR BIOINFORMATICS SPECIALIST Waveform: Monophasic RIGHT DPA Waveform: Monophasic LEFT SENIOR BIOINFORMATICS SPECIALIST Waveform: Monophasic LEFT DPA Waveform: Monophasic [...] on MonMar 20, 2025 9:40:58 AM EDTNormalRiverside [facility] Doppler ankle/brachial indexon 29-62-7505Ewdxnmh Info Name: Tristin Powell Age: 85 years : 1940 Gender: Male Exam Date: 03/20/2025 8:42 AM Patient Status: INPATIENT Site Location: [facility] Indications I73.9 - Peripheral vascular disease, unspecified Procedure Description 50186 Limited bilateral noninvasive physiologic studies of upper or lower extremity arteries with bidirectional Doppler/PVR waveform analysis at 1-2 levels. Insurance Agent: Maggy Dempsey T Staff Ordering Physician: Beena [...] Segmental BP RIGHT Brachial A mmH RIGHT SENIOR BIOINFORMATICS SPECIALIST mmH RIGHT SENIOR BIOINFORMATICS SPECIALIST Index: 0.53 RIGHT DPA mmH RIGHT DPA Index: 0.57 RIGHT Digit mmH RIGHT YAMILE Index: 0.57 RIGHT TBI Index: 0.00 LEFT SENIOR BIOINFORMATICS SPECIALIST Index: 0.36 LEFT SENIOR BIOINFORMATICS SPECIALIST mmH LEFT DPA Index: 0.41 LEFT DPA mmH LEFT YAMILE Index: 0.41 Doppler RIGHT SENIOR BIOINFORMATICS SPECIALIST Waveform: Monophasic RIGHT DPA Waveform: Monophasic LEFT SENIOR BIOINFORMATICS SPECIALIST Waveform: Monophasic LEFT DPA Waveform: Monophasic , PVR RIGHT Ankle Grade: Abnormal RIGHT Transmetarsal Grade: Abnormal RIGHT Digit (PPG) Grade: Absent LEFT Ankle Grade: Abnormal Prior Interventions 03/17/2025 right femoral and tibial bypass graft-. 03/17/2025 right femoral and tibial Report Signatures Finalized by Sylvia Meyer MD, RPLUIZA, FSIR on 03/20/2025 09:40 AMFUJI SYNAPSE [facility] Sylvia Haley MD - 03/20/2025 Patient Info Name: Tristin Powell Age: 85 years : 1940 Gender: Male Exam Date: 03/20/2025 8:42 AM Patient Status: INPATIENT Site Location: [facility] Indications I73.9 - Peripheral vascular disease, unspecified Procedure Description 06681 Limited bilateral noninvasive physiologic studies of upper or lower extremity arteries with bidirectional Doppler/PVR waveform analysis at 1-2 levels. Insurance Agent: Maggy Dempsey T Staff Ordering Physician: Beena [...] Segmental BP RIGHT Brachial A mmH RIGHT SENIOR BIOINFORMATICS SPECIALIST mmH RIGHT SENIOR BIOINFORMATICS SPECIALIST Index: 0.53 RIGHT DPA mmH RIGHT DPA Index: 0.57 RIGHT Digit mmH RIGHT YAMILE Index: 0.57 RIGHT TBI Index: 0.00 LEFT SENIOR BIOINFORMATICS SPECIALIST Index: 0.36 LEFT SENIOR BIOINFORMATICS SPECIALIST mmH LEFT DPA Index: 0.41 LEFT DPA mmH LEFT YAMILE Index: 0.41 Doppler RIGHT SENIOR BIOINFORMATICS SPECIALIST Waveform: Monophasic RIGHT DPA Waveform: Monophasic LEFT SENIOR BIOINFORMATICS SPECIALIST Waveform: Monophasic LEFT DPA Waveform: Monophasic , PVR RIGHT Ankle Grade: Abnormal RIGHT Transmetarsal Grade: Abnormal RIGHT Digit (PPG) Grade: Absent LEFT Ankle Grade: Abnormal Prior Interventions 03/17/2025 right femoral and tibial bypass graft-. 03/17/2025 right femoral and tibial Report Signatures Finalized by Sylvia Meyer MD, RPVI, FSIR on 03/20/2025 09:40 AM [facility] METABOLIC PANELon 25-57-1698Stlve gap [Moles/Vol]13 mmol/LNormal 10-20RiDoctors HospitalComment on above:Order Comment: Therapeutic range for APTT's is 68 - 104 secondsPerformed By: #### [id number] #### [facility] [address] [place] [address] Emmanuel Plata M.D. [id number] [Mass/Vol]9.0 mg/dLNormal8.4-10.2[facility]iversWhite Hospital Comment on above:Order Comment: Therapeutic range for APTT's is 68 - 104 seconds Performed By: #### [id number] #### [facility] [address] [place] [address] Emmanuel Plata M.D. [id number] [Moles/Vol]108 mmol/NYreojw52-375QlmbvhqzfDoctors Hospital Comment on above:Order Comment: Therapeutic range for APTT's is 68 - 104 seconds Performed By: #### [id number] #### [facility] [address] [place], [place] [address] Emmanuel Plata M.D. [id number] [Mass/Vol]1.12 mg/dLNormal0.80-1.30RiDoctors HospitalComment on above:Order Comment: Therapeutic range for APTT's is 68 - 104 secondsPerformed By: #### [id number] #### [facility] [address] [place] [address] Emmanuel Plata M.D. [id number] mL/min/1.73 h1Qvgkwm>=60RiDoctors HospitalComment on above:Order Comment: Therapeutic range for APTT's is 68 - 104 secondsResult Comment: Estimated GFR was calculated using the 2020 CKD-EPI creatinine equation.Performed By: #### [id number] #### [facility] [address] [place], [place] [address] Emmanuel Plata M.D. [id number] [Mass/Vol]109 mg/qAHprc93-87AyigyiovdParkview Health Bryan Hospital Comment on above:Order Comment: Therapeutic range for APTT's is 68 - 104 seconds Performed By: #### [id number] #### [facility] [address] [place] [address] Emmanuel Plata M.D. [id number] (Bld) [Moles/Vol]24 mmol/TVrwazc45-21DepfxgxzhParkview Health Bryan Hospital Comment on above:Order Comment: Therapeutic range for APTT's is 68 - 104 seconds Performed By: #### [id number] #### [facility] [address] [place] [address] Emmanuel Plata M.D. [id number] [Moles/Vol]5.0 mmol/LNormal3.5-5.1RHocking Valley Community HospitalComment on above:Order Comment: Therapeutic range for APTT's is 68 - 104 secondsResult Comment: Slightly HemolyzedPerformed By: #### [id number] #### [facility] [address] [place] [address] Emmanuel Plata M.D. [id number] [Moles/Vol]140 mmol/SYxorzg984-194IatxcdxzeParkview Health Bryan Hospital Comment on above:Order Comment: Therapeutic range for APTT's is 68 - 104 seconds Performed By: #### [id number] #### [facility] [address] [place], [place] [address] Emmanuel Plata M.D. [id number] nitrogen [Mass/Vol]22 mg/dLNormal8-25[facility] Comment on above:Order Comment: Therapeutic range for APTT's is 68 - 104 seconds Performed By: #### [id number] #### [facility] [address] [place] [address] Emmanuel Plata M.D. [id number] nitrogen/Creatinine [Mass ratio]19.6 mg/seOrjhff95.0-20.0 [facility] HospitalComment on above:Order Comment: Therapeutic range for APTT's is 68 - 104 secondsPerformed By: #### [id number] #### [facility] [address] [place] [address] Emmanuel Plata M.D. [id number] metabolic 2000 panelOrdered By: Larry Brady on 03-19-2025 Anion gap [Moles/Vol]13 mmol/L10 - 20 mmol/LOhioHealthCalcium [Mass/Vol]9 mg/dL 8.4 - 10.2 mg/dLOhioHealthChloride [Moles/Vol]108 mmol/L98 - 108 mmol/L OhioHealthCreatinine [Mass/Vol]1.12 mg/dL0.80 - 1.30 mg/dLOhioHealthGFR/1.73 sq M.predicted CKD-EPI (S/P/Bld) [Vol rate/Area]64- PINFOhioHealthComment on above: Estimated GFR was calculated using the 2020 CKD-EPI creatinine equation.Glucose [Mass/Vol]109 mg/qICada77 - 99 mg/dLOhioHealthHCO3 [Moles/Vol]24 mmol/L21 - 32 [...] conforms to the NKF-ASN Task Force Recommendations.OhioHealthCBCon 92-64-1282RSRZ NRBC0.0 %NormalRiverside Baylor Scott & White Medical Center – PflugervilleComment on above: Performed By: #### [id number] #### [facility] [address] [place] [address] Emmanuel Plata M.D. [id number] NRBC ABS COUNT0.00 K/mcLNormal0.00-0.00RiversAdena Pike Medical Center HospitalComment on above:Performed By: #### [id number] #### [facility] [address] [place] [address] Emmanuel Plata M.D. [id number] distribution width (RBC) [Ratio]14.5 %Ktpmcu87.6-14.8 [facility] HospitalComment on above:Performed By: #### [id number] #### [facility] [address] [place] [address] Emmanuel Plata M.D. [id number] (Bld) [Volume fraction]27.8 %Low41.0-53.0RiversAdena Pike Medical Center HospitalComment on above:Performed By: #### 34062 #### [facility] [address] [place] [address] Emmanuel Plata M.D. [id number] (Bld) [Mass/Vol]10.4 g/dLLow13.5-17.5RiMercy Health Springfield Regional Medical Center HospitalComment on above:Performed By: #### [id number] #### [facility] [address] [place], [place] [address] Emmanuel Plata M.D. [id number] (RBC) [Entitic mass]36.1 ghScdv23.0-34.0RiMercy Health Springfield Regional Medical Center HospitalComment on above:Performed By: #### 63726 #### [facility] [address] [place], [place] [address] Emmanuel Plata M.D. [id number] (RBC) [Entitic vol]96.5 lMAhiwxh79.0-100.0RiMercy Health Springfield Regional Medical Center HospitalComment on above:Performed By: #### [id number] #### [facility] [address] [place], [place] [address] Emmanuel Plata M.D. [id number] CORPUSCULAR HEMOGLOBIN CONC37.4 g/rXKvku76.0-37.0RiMercy Health Springfield Regional Medical Center HospitalComment on above:Performed By: #### [id number] #### [facility] [address] [place] [address] Emmanuel Plata M.D. [id number] mean volume (Bld) [Entitic vol]9.6 fLNormal9.4-12.4RiversAdena Pike Medical Center HospitalComment on above:Performed By: #### [id number] #### [facility] [address] [place] [address] Emmanuel Plata M.D. [id number] (Bld) [#/Vol]148 10*3/lSTmp314-473XzuknxakpDoctors HospitalComment on above:Performed By: #### [id number] #### [facility] [address] [place], [place] [address]Nessa Plata M.D. [id number] (Bld) [#/Vol]2.88 10*6/uLLow4.50-5.90RiDoctors Hospital Comment on above:Performed By: #### [id number] #### [facility] [address] [place], [place] [address] Emmanuel Plata M.D. [id number] (Bld) [#/Vol]4.34 10*3/uLLow4.50-11.00[facility] Comment on above:Performed By: #### [id number] #### [facility] [address] [place], [place] [address]Nessa Plata M.D. [id number] panel Auto (Bld)on 26-11-7172Hnymzagnvas distribution width (RBC) [Entitic vol]14.5 %11.6 - 14.8 %OhioHealthHematocrit (Bld) [Volume fraction]27.8 %Low41.0 - 53.0 %OhioHealthHemoglobin (Bld) [Mass/Vol]10.4 g/dLLow13.5 - 17.5 g/dLOhioHealthInterpretation and review of laboratory resultsAbnormalOhioHealth MCH (RBC) [Entitic mass]36.1 laJslf89.0 - 34.0 pgOhioHealthMCHC (RBC) [Mass/Vol] 37.4 g/oKXnuq38.0 - 37.0 g/dLOhioHealthMCV (RBC) [Entitic vol]96.5 fL80.0 - 100.0 fLOhioHealthNucleated RBC (Bld) [#/Vol]0 10*3/uLOhioHealthNucleated RBC/100 WBC (Bld) [Ratio]0 %OhioHealthPlatelet mean volume (Bld) [Entitic vol] 9.6 fL9.4 - 12.4 fLOhioHealthPlatelets (Bld) [#/Vol]148 10*3/uLLowOhioHealthRBC (Bld) [#/Vol]2.88 10*6/uLLowOhioHealthWBC (Bld) [#/Vol]4.34 10*3/uLLowOhioHealth OhioHealthMAGNESIUM LEVELon 27-00-0009Koqgkjqyn [Mass/Vol]2.4 mg/dLNormal1.6-2.4 [facility] HospitalComment on above:Performed By: #### [id number] #### [facility] [address] [place] [address] Emmanuel Plata M.D. [id number] 79-92-9438Uhuceyhwy [Mass/Vol]2.4 mg/dL1.6 - 2.4 mg/dL OhioHealthMagnesium [Mass/Vol]on 14-51-9038Kdlbcnkwktxihg and review of laboratory resultsNormalOhioHealthNo Panel InformationOrdered By: Larry Brady on 95-52-9676EjgyWhbbxmUIGTW METABOLIC PANELon 54-79-0368Fnksk gap [Moles/Vol] 16 mmol/CGcwnes53-16VwxgcjpvhDoctors HospitalComment on above:Order Comment: [facility] has implemented the eGFR calculation approach that does not have a coefficient for race that conforms to the NKF-ASN Task Force Recommendations.Performed By: #### [id number] #### [facility] [address] [place] [address] Emmanuel Plata M.D. [id number] [Mass/Vol]8.2 mg/dLLow8.4-10.2[facility] Comment on above:Order Comment: [facility] has implemented the eGFR calculation approach that does not have a coefficient for race that conforms to the NKF-ASN Task Force Recommendations.Performed By: #### [id number] #### [facility] [address] [place], [place] [address] Emmanuel Plata M.D. [id number] [Moles/Vol]109 mmol/MZqqn52-209PfbobifaxDoctors Hospital Comment on above:Order Comment: [facility] has implemented the eGFR calculation approach that does not have a coefficient for race that conforms to the NKF-ASN Task Force Recommendations.Performed By: #### [id number] #### [facility] [address] [place] [address] Emmanuel Plata M.D. [id number] [Mass/Vol]1.05 mg/dLNormal0.80-1.30RiDoctors HospitalComment on above:Order Comment: [facility] has implemented the eGFR calculation approach that does not have a coefficient for race that conforms to the NKF-ASN Task Force Recommendations.Performed By: #### [id number] #### [facility] [address] [place] [address] Emmanuel Plata M.D. [id number] mL/min/1.73 p9Jrlwhq>=60RiDoctors HospitalComment on above:Order Comment: [facility] has implemented the eGFR calculation approach that does not have a coefficient for race that conforms to the NKF-ASN Task Force Recommendations.Result Comment: Estimated GFR was calculated using the 2020 CKD-EPI creatinine equation.Performed By: #### [id number] #### [facility] [address] [place], [place] [address] Emmanuel Plata M.D. [id number] [Mass/Vol]111 mg/bAVadi48-58RulzgrvrqParkview Health Bryan Hospital Comment on above:Order Comment: [facility] has implemented the eGFR calculation approach that does not have a coefficient for race that conforms to the NKF-ASN Task Force Recommendations.Performed By: #### [id number] #### [facility] [address] [place] [address] Emmanuel Plata M.D. [id number] (Bld) [Moles/Vol]19 mmol/BNsz69-43VqblwydtfParkview Health Bryan Hospital Comment on above:Order Comment: [facility] has implemented the eGFR calculation approach that does not have a coefficient for race that conforms to the NKF-ASN Task Force Recommendations.Performed By: #### [id number] #### [facility] [address] [place] [address] Emmanuel Plata M.D. [id number] [Moles/Vol]4.1 mmol/LNormal3.5-5.1RiversWhite HospitalComment on above:Order Comment: [facility] has implemented the eGFR calculation approach that does not have a coefficient for race that conforms to the NKF-ASN Task Force Recommendations.Result Comment: Slightly HemolyzedPerformed By: #### [id number] #### [facility] [address] [place], [place] [address] Emmanuel Plata M.D. [id number] [Moles/Vol]140 mmol/FNjcuyc281-952UuragieqlParkview Health Bryan Hospital Comment on above:Order Comment: [facility] has implemented the eGFR calculation approach that does not have a coefficient for race that conforms to the NKF-ASN Task Force Recommendations.Performed By: #### [id number] #### [facility] [address] [place] [address] Emmanuel Plata M.D. [id number] nitrogen [Mass/Vol]18 mg/dLNormal8-25RiDoctors Hospital Comment on above:Order Comment: [facility] has implemented the eGFR calculation approach that does not have a coefficient for race that conforms to the NKF-ASN Task Force Recommendations.Performed By: #### [id number] #### [facility] [address] [place] [address] Emmanuel Plata M.D. [id number] nitrogen/Creatinine [Mass ratio]17.1 mg/fyGymrtg57.0-20.0 [facility] HospitalComment on above:Order Comment: [facility] has implemented the eGFR calculation approach that does not have a coefficient for race that conforms to the NKF-ASN Task Force Recommendations.Performed By: #### [id number] #### [facility] [address] [place] [address] Emmanuel Plata M.D. [id number] metabolic 2000 panelOrdered By: Fred Hameed on 72-00-4892Gayoc gap [Moles/Vol]16 mmol/L10 - 20 mmol/LOhioHealthCalcium [Mass/Vol]8.2 mg/dLLow 8.4 - 10.2 mg/dLOhioHealthChloride [Moles/Vol]109 mmol/LHigh98 - 108 mmol/L OhioHealthCreatinine [Mass/Vol]1.05 mg/dL0.80 - 1.30 mg/dLOhioHealthGFR/1.73 sq M.predicted CKD-EPI (S/P/Bld) [Vol rate/Area]69- PINFOhioHealthComment on above: Estimated GFR was calculated using the 2020 CKD-EPI creatinine equation.Glucose [Mass/Vol]111 mg/vCPpzo14 - 99 mg/dLOhioHealthHCO3 [Moles/Vol]19 mmol/LLow21 - 32 mmol/LOhioHealthInterpretation and review of laboratory resultsAbnormal OhioHealthPotassium [Moles/Vol]4.1 mmol/L3.5 - 5.1 mmol/LOhioHealthComment on above:Slightly HemolyzedSodium [Moles/Vol]140 mmol/L135 - 145 mmol/LOhioHealth Urea nitrogen [Mass/Vol]18 mg/dL8 - 25 mg/dLOhioHealthUrea nitrogen/Creatinine [Mass ratio]17.1 mg/mg10.0 - 20.0OhioMercy Health Allen HospitalioPomerene [facility] has implemented the eGFR calculation approach that does not have a coefficient for race that conforms to the NKF-ASN Task Force Recommendations.[facility] 85-62-3213IYSB NRBC0.0 %NormalRiDoctors HospitalComment on above: Performed By: #### [id number] #### [facility] [address] [place] [address] Emmanuel Plata M.D. [id number] NRBC ABS COUNT0.00 K/mcLNormal0.00-0.00RiDoctors HospitalComment on above:Performed By: #### [id number] #### [facility] [address] [place], [place] [address] Emmanuel Plata M.D. [id number] distribution width (RBC) [Ratio]13.3 %Ssepxv70.6-14.8 [facility] HospitalComment on above:Performed By: #### [id number] #### [facility] [address] [place], [place] [address] Emmanuel Plata M.D. [id number] (Bld) [Volume fraction]28.9 %Low41.0-53.0RiDoctors HospitalComment on above:Performed By: #### [id number] #### [facility] [address] [place] [address] Emmanuel Plata M.D. [id number] (Bld) [Mass/Vol]10.5 g/dLLow13.5-17.5Riverside Worship HospitalComment on above:Performed By: #### [id number] #### [facility] [address] [place] [address] Emmanuel Plata M.D. [id number] (RBC) [Entitic mass]34.3 mtLydp50.0-34.0RiversAdena Pike Medical Center HospitalComment on above:Performed By: #### [id number] #### [facility] [address] [place] [address] Emmanuel Plata M.D. [id number] (RBC) [Entitic vol]94.4 uZHrwhkc66.0-100.0RiversAdena Pike Medical Center HospitalComment on above:Performed By: #### [id number] #### [facility] [address] [place] [address] Emmanuel Plata M.D. [id number] CORPUSCULAR HEMOGLOBIN CONC36.3 g/oSFtlgfe91.0-37.0RiMercy Health Springfield [facility] HospitalComment on above:Performed By: #### [id number] #### [facility] [address] [place] [address] Emmanuel Plata M.D. [id number] mean volume (Bld) [Entitic vol]9.7 fLNormal9.4-12.4R[facility] Worship HospitalComment on above:Performed By: #### [id number] #### [facility] [address] [place] [address] Emmanuel Plata M.D. [id number] (Bld) [#/Vol]157 10*3/gQWquepr440-596Awdbscdyg Methodist HospitalComment on above:Performed By: #### [id number] #### [facility] [address] [place] [address] Emmanuel Plata M.D. [id number] (Bld) [#/Vol]3.06 10*6/uLLow4.50-5.90RiDoctors Hospital Comment on above:Performed By: #### [id number] #### [facility] [address] [place] [address] Emmanuel Plata M.D. [id number] (Bld) [#/Vol]5.05 10*3/uLNormal4.50-11.00RiDoctors HospitalComment on above:Performed By: #### [id number] #### [facility] [address] [place] [address] Emmanuel Plata M.D. [id number] panel Auto (Bld)on 71-34-4920Ikdfhaosqyn distribution width (RBC) [Entitic vol]13.3 %11.6 - 14.8 %OhioHealthHematocrit (Bld) [Volume fraction]28.9 %Low41.0 - 53.0 %OhioHealthHemoglobin (Bld) [Mass/Vol]10.5 g/dLLow13.5 - 17.5 g/dLOhioHealthInterpretation and review of laboratory resultsAbnormalOhioHealth MCH (RBC) [Entitic mass]34.3 ghVzlw79.0 - 34.0 pgOhioHealthMCHC (RBC) [Mass/Vol] 36.3 g/dL31.0 - 37.0 g/dLOhioHealthMCV (RBC) [Entitic vol]94.4 fL80.0 - 100.0 fL OhioHealthNucleated RBC (Bld) [#/Vol]0 10*3/uLOhioHealthNucleated RBC/100 WBC (Bld) [Ratio]0 %OhioHealthPlatelet mean volume (Bld) [Entitic vol]9.7 fL9.4 - 12.4 fLOhioHealthPlatelets (Bld) [#/Vol]157 10*3/uLOhioHealthRBC (Bld) [#/Vol] 3.06 10*6/uLLowOhioHealthWBC (Bld) [#/Vol]5.05 10*3/uLOhioHealthOhioHealth MAGNESIUM LEVELon 84-75-0429Wjpwgbatc [Mass/Vol]2.1 mg/dLNormal1.6-2.4RHocking Valley Community HospitalComment on above:Performed By: #### [id number] #### [facility] [address] [place] [address] Emmanuel Plata M.D. [id number] 25-02-7880Tegnufifw [Mass/Vol]2.1 mg/dL1.6 - 2.4 mg/dL [facility] HospitalMagnesium [Mass/Vol]on 93-86-0777Kwspehrxvwbteq and review of laboratory resultsNormalOhioHealthNo Panel Informationon 26-83-7105YenkEyzwrdRY Lower extremity vein - righton 03-18-2025 Fluoroscopy [...] report for details. MAY/edi Workstation ID: [id number] [facility] Lower extremity vein - rightOrdered By: Sylvia Meyer on 03-18-2025 [facility] Work Phone: APTT HEPARIN COVERAGEon 36-80-0870xADX Coag (Bld) [Time]92 xDwte83-60KleoroicaDoctors HospitalComment on above:Order Comment: Therapeutic range for APTT's is 68 - 104 secondsPerformed By: #### [id number] #### [facility] [address] [place], [place] [address] Emmanuel Plata M.D. [id number] Heparin Coverageon 51-05-8391hEHP Coag (Bld) [Time]92 [facility] HospitalInterpretation and review of laboratory resultsAbnormalOhioHealth Therapeutic range for APTT's is 68 - 104 secondsOhioHealthNhioHealthBASIC METABOLIC PANELon 19-52-5106Sxhpu gap [Moles/Vol]12 mmol/AUsozej19-34AckoxxxydParkview Health Bryan HospitalComment on above:Order Comment: [facility] has implemented the eGFR calculation approach that does not have a coefficient for race that conforms to the NKF-ASN Task Force Recommendations.Performed By: #### [id number] #### [facility] [address] [place], [place] [address] Emmanuel Plata M.D. [id number] [Mass/Vol]8.5 mg/dLNormal8.4-10.2RHocking Valley Community Hospital Comment on above:Order Comment: [facility] has implemented the eGFR calculation approach that does not have a coefficient for race that conforms to the NKF-ASN Task Force Recommendations.Performed By: #### [id number] #### [facility] [address] [place], [place] [address] Emmanuel Plata M.D. [id number] [Moles/Vol]106 mmol/MWggsbx20-359EdedgptvfParkview Health Bryan Hospital Comment on above:Order Comment: [facility] has implemented the eGFR calculation approach that does not have a coefficient for race that conforms to the NKF-ASN Task Force Recommendations.Performed By: #### [id number] #### [facility] [address] [place], [place] [address] Emmanuel Plata M.D. [id number] [Mass/Vol]1.05 mg/dLNormal0.80-1.30RiDoctors HospitalComment on above:Order Comment: [facility] has implemented the eGFR calculation approach that does not have a coefficient for race that conforms to the NKF-ASN Task Force Recommendations.Performed By: #### 86115 #### [facility] [address] [place], [place] [address] Emmanuel Plata M.D. [id number] mL/min/1.73 h3Cvoohn>=60RiDoctors HospitalComment on above:Order Comment: [facility] has implemented the eGFR calculation approach that does not have a coefficient for race that conforms to the NKF-ASN Task Force Recommendations.Result Comment: Estimated GFR was calculated using the 2020 CKD-EPI creatinine equation.Performed By: #### [id number] #### [facility] [address] [place], [place] [address] Emmanuel Plata M.D. [id number] [Mass/Vol]90 mg/dQWsnypn66-63PjhoymgizParkview Health Bryan Hospital Comment on above:Order Comment: [facility] has implemented the eGFR calculation approach that does not have a coefficient for race that conforms to the NKF-ASN Task Force Recommendations.Performed By: #### [id number] #### [facility] [address] [place], [place] [address] Emmanuel Plata M.D. [id number] (Bld) [Moles/Vol]24 mmol/ATyobsv31-25XntvnlelqDoctors Hospital Comment on above:Order Comment: [facility] has implemented the eGFR calculation approach that does not have a coefficient for race that conforms to the NKF-ASN Task Force Recommendations.Performed By: #### 77525 #### [facility] [address] [place] [address] Emmanuel Plata M.D. [id number] [Moles/Vol]4.1 mmol/LNormal3.5-5.1RHocking Valley Community HospitalComment on above:Order Comment: [facility] has implemented the eGFR calculation approach that does not have a coefficient for race that conforms to the NKF-ASN Task Force Recommendations.Performed By: #### [id number] #### [facility] [address] [place] [address] Emmanuel Plata M.D. [id number] [Moles/Vol]138 mmol/RQykewn260-492BqxercudyDoctors Hospital Comment on above:Order Comment: [facility] has implemented the eGFR calculation approach that does not have a coefficient for race that conforms to the NKF-ASN Task Force Recommendations.Performed By: #### 83348 #### [address] [address] Emmanuel Plata M.D. [id number] nitrogen [Mass/Vol]16 mg/dLNormal8-25RiDoctors Hospital Comment on above:Order Comment: [facility] has implemented the eGFR calculation approach that does not have a coefficient for race that conforms to the NKF-ASN Task Force Recommendations.Performed By: #### 94734 #### [facility] [address] [place] [address] Emmanuel Plata M.D. [id number] nitrogen/Creatinine [Mass ratio]15.2 mg/kyTbkkvd23.0-20.0 [facility] HospitalComment on above:Order Comment: [facility] has implemented the eGFR calculation approach that does not have a coefficient for race that conforms to the NKF-ASN Task Force Recommendations.Performed By: #### [id number] #### [facility] [address] [place] [address] Emmanuel Plata M.D. [id number] metabolic 2000 panelon 80-09-1876Xnykn gap [Moles/Vol]12 mmol/L 10 - 20 mmol/LOhioHealthCalcium [...] 25 mg/dLOhioHealthUrea nitrogen/Creatinine [Mass ratio]15.2 mg/mg10.0 - 20.0OhioMercy Health Allen HospitalioHealth [facility] has implemented the eGFR calculation approach that does not have a coefficient for race that conforms to the NKF-ASN Task Force Recommendations.[facility] CenterCon 16-38-1228UDRC NRBC0.0 %NormalRiverside Worship HospitalComment on above:Performed By: #### [id number] #### [facility] [address] [place] [address] Emmanuel Plata M.D. [id number] NRBC ABS COUNT0.00 K/mcLNormal0.00-0.00[facility]ide [facility] PflugervilleComment on above:Performed By: #### [id number] #### [facility] [address] [place] [address] Emmanuel Plata M.D. [id number] distribution width (RBC) [Ratio]13.2 %Xhyjod30.6-14.8 [facility] HospitalComment on above:Performed By: #### 76684 #### [facility] [address] [place] [address] Emmanuel Plata M.D. [id number] (Bld) [Volume fraction]33.1 %Low41.0-53.0RiversAdena Pike Medical Center HospitalComment on above:Result Comment: Repeated AND verified Performed By: #### 09905 #### [facility] [address] [place] [address] Emmanuel Plata M.D. [id number] (Bld) [Mass/Vol]11.0 g/dLLow13.5-17.5RiDoctors HospitalComment on above:Performed By: #### [id number] #### [facility] [address] [place] [address] Emmanuel Plata M.D. [id number] (RBC) [Entitic mass]29.8 lgSsezoe46.0-34.0RiDoctors HospitalComment on above:Performed By: #### [id number] #### [facility] [address] [place] [address] Emmanuel Plata M.D. [id number] (RBC) [Entitic vol]89.7 kSSoyfuw13.0-100.0RiDoctors HospitalComment on above:Performed By: #### 84771 #### [facility] [address] [place], [place] [address] Emmanuel Plata M.D. [id number] CORPUSCULAR HEMOGLOBIN CONC33.2 g/lVDmfdol49.0-37.0RiMercy Health Springfield Regional Medical Center HospitalComment on above:Result Comment: Cold Agglutinin present Performed By: #### 00501 #### [facility] [address] [place], [place] [address] Emmanuel Plata M.D. [id number] mean volume (Bld) [Entitic vol]10.2 fLNormal9.4-12.4RHocking Valley Community HospitalComment on above:Performed By: #### 79025 #### [facility] [address] [place] [address] Emmanuel Plata M.D. [id number] (Bld) [#/Vol]153 10*3/iHSkbcim908-895RvyiqeqbyDoctors HospitalComment on above:Performed By: #### 76797 #### [facility] [address] [place] [address] Emmanuel Plata M.D. [id number] (Bld) [#/Vol]3.69 10*6/uLLow4.50-5.90RiDoctors Hospital Comment on above:Performed By: #### 93102 #### [facility] [address] [place], [place] [address] Emmanuel Plata M.D. [id number] (Bld) [#/Vol]3.29 10*3/uLLow4.50-11.00[facility] Comment on above:Performed By: #### 88509 #### [facility] [address] [place], [place] [address] Emmanuel Plata M.D. [id number] panel Auto (Bld)on 34-98-5770Rzlrioswpei distribution width (RBC) [Entitic vol]13.2 %11.6 - [...] 3.69 10*6/uLLowOhioHealthWBC (Bld) [#/Vol]3.29 10*3/uLLowOhioHealthOhioHealthECG 12 Leadon 10-20-9587Sjnbnp Emid21WDWTxkyXrsalrN Tqne73tldwmbaZamnAfsnwhR-N Uxdxkpuj405 msOhioHealthQ-T Kezamfzq447 msOhioHealthQRS Oedhfdbf139 msOhioHealth QTC Calculation (Bezet)464 msOhioHealthR Givo15jxmvnzlFjnxOlnicfF Cczx98tovgauc OhioHealthVentricular Csrg82TQFVernHauyxtSkvxi rhythm with Premature supraventricular complexes Otherwise normal ECG Confirmed by MARY CARLTON ([id number]) on 03/17/2025 7:58:31 AMMUSEOhioHealth Glucose (Bld) [Mass/Vol]on 74-30-4900Qhdyihr [Mass/Vol]105 mg/vMBdbm40 - 99 mg/dLOhioHealthInterpretation and review of laboratory resultsAbnormalOhioHealth OhioHealthHEMOGLOBIN AND HEMATOCRITon 66-02-3213Uysrufhpkx (Bld) [Volume fraction]30.5 %Low41.0-53.0RiDoctors HospitalComment on above: Performed By: #### [id number] #### [facility] [address] [place] [address] Emmanuel Plata M.D. [id number] (Bld) [Mass/Vol]11.2 g/dLLow13.5-17.5RiDoctors HospitalComment on above:Performed By: #### 50934 #### [address] [address] Emmanuel Plata M.D. [id number] and Hematocrit panel (Bld)on 22-98-5720Cszchoxpow (Bld) [Volume fraction]30.5 %Low41.0 - 53.0 %OhioHealthHemoglobin (Bld) [Mass/Vol]11.2 g/dLLow13.5 - 17.5 g/dLOhioHealthInterpretation and review of laboratory resultsAbnormalOhioHealthOhioHealthMAGNESIUM LEVELon 87-10-0214Qpanlghuh [Mass/Vol]2.1 mg/dLNormal1.6-2.4RiversWhite HospitalComment on above: Performed By: #### 22505 #### [address] [address] Emmanuel Plata M.D. [id number] 12-82-6053Qgbravszb [Mass/Vol]2.1 mg/dL1.6 - 2.4 mg/dL OhioPomerene HospitalNo Panel Informationon 54-72-2670Oehxxbusrbrytp and review of laboratory resultsNormalOhioHealthOhioHealthOP NOTEon 18-12-1513PH TRISTIN MOELLER [id number] DATE 03/17/2025 OPERATIVE REPORT SURGEON MOHSEN SARABIA MD VP ANALYSIS FAUSTINA OROZCO, RESIDENT PREOPERATIVE DIAGNOSIS Chronic limb-threatening [...] did elect to shoot an angiogram. A 23-Estonian butterfly needle was used to puncture the [...] 200 cc. MD Carlo GUNN 03/17/2025 16:58 [id number] T 03/17/2025 23:17 JPW/MODL AUTHENTICATED BY MOHSEN SARABIA, ON 03/24/2025 10:13:39NormalRiverside [facility] GLUCOSE - [facility] FRANCIS HOSPITALPartha 96-51-5942Eupbeml [Mass/Vol]105 mg/dLHigh 65-99Rimission trail baptist hospitalide [facility] – PflugervilleComment on above:Performed By: #### [id number] #### [facility] [address] [place] [address] [id number] RMHPOCUS Lower extremity vein - righton 28-92-5179Zhmqxymsw Study observation (narrative)OhioPomerene HospitalXR OR ANGIO LOWER EXTREMITY RIGHTon 00-13-9317VZ OR ANGIO LOWER EXTREMITY RIGHTEXAMINATION: XR OR [...] Refer to the operative report for details. [employer]/YouFastUnlock Workstation ID: [id number] Dictated by: Sylvia MEYER on MonMar 18, 2025 7:54:33 AM EDT Transcribed by: ZENA NEGRETE on MonMar 18, 2025 8:58:15 AM EDT Finalized by: Sylvia MEYER on MonMar 18, 2025 10:04:09 AM EDTNoOhioHealth Arthur G.H. Bing, MD, Cancer CenterComment on above:Order Comment: Injury/Trauma or Illness?:Illness/Other How long have you had these symptoms (acute/chronic)?:Acute Reason for exam?:rt leg bypass Type of Exam?:Unknown Additional signs and symptoms?:sx Fluoro time in minutes:1.3 Fluoro dose in mGy?:7.18APTT HEPARIN COVERAGEon 84-09-3728aVVS Coag (Bld) [Time] 85 [address]Comment on above:Order Comment: Therapeutic range for APTT's is 68 - 104 secondsPerformed By: #### [id number] #### [facility] [address] [place] [address] Emmanuel Plata M.D. [id number] Coag (Bld) [Time]90 sKjsc62-29PuzxzieasParkview Health Bryan HospitalComselect specialty hospital-pontiac on above:Order Comment: Therapeutic range for APTT's is 68 - 104 seconds Performed By: #### [id number] #### [facility] [address] [place] [address] Emmanuel Plata M.D. [id number] Coag (Bld) [Time]91 hNyou81-17JofnxexneDoctors HospitalComment on above:Order Comment: Therapeutic range for APTT's is 68 - 104 seconds Performed By: #### [id number] #### [facility] [address] [place] [address] Emmanuel Plata M.D. [id number] Heparin CoverageOrdered By: Remigio Hernandez on 04-41-1142rWMK Coag (Bld) [Time]85 sHighOhioHealthInterpretation and review of laboratory results AbnormalOhioHealthTherapeutic range for APTT's is 68 - 104 secondsOhioHealth OhioHealthAPTT Heparin CoverageOrdered By: Flory Pino on 56-78-5255wYSL Coag (Bld) [Time]90 sHighOhioHealthTherapeutic range for APTT's is 68 - 104 seconds OhioHealthAPTT Heparin CoverageOrdered By: Deena Escoto on 80-42-6518vCKN Coag (Bld) [Time]91 sHighOhioHealthInterpretation and review of laboratory results AbnormalOhioHealthTherapeutic range for APTT's is 68 - 104 secondsOhioHealth [facility] HospitalBASIC METABOLIC PANELon 90-23-7056Kstsp gap [Moles/Vol]15 mmol/LNormal -[facility] Bryan HospitalComment on above:Order Comment: [facility] has implemented the eGFR calculation approach that does not have a coefficient for race that conforms to the NKF-ASN Task Force Recommendations.Performed By: #### [id number] #### [facility] [address] [place] [address] Emmanuel Plata M.D. [id number] [Mass/Vol]9.0 mg/dLNormal8.4-10.2RHocking Valley Community [facility] Comment on above:Order Comment: [facility] has implemented the eGFR calculation approach that does not have a coefficient for race that conforms to the NKF-ASN Task Force Recommendations.Performed By: #### [id number] #### [facility] [address] [place] [address] Emmanuel Plata M.D. [id number] [Moles/Vol]106 mmol/XArniwm92-860YkdhynbohDoctors Hospital Comment on above:Order Comment: [facility] has implemented the eGFR calculation approach that does not have a coefficient for race that conforms to the NKF-ASN Task Force Recommendations.Performed By: #### [id number] #### [facility] [address] [place], [place] [address] Emmanuel Plata M.D. [id number] [Mass/Vol]1.11 mg/dLNormal0.80-1.30RiDoctors HospitalComment on above:Order Comment: [facility] has implemented the eGFR calculation approach that does not have a coefficient for race that conforms to the NKF-ASN Task Force Recommendations.Performed By: #### [id number] #### [facility] [address] [place], [place] [address] Emmanuel Plata M.D. [id number] mL/min/1.73 c9Nszjna>=60RiDoctors HospitalComment on above:Order Comment: [facility] has implemented the eGFR calculation approach that does not have a coefficient for race that conforms to the NKF-ASN Task Force Recommendations.Result Comment: Estimated GFR was calculated using the 2020 CKD-EPI creatinine equation.Performed By: #### [id number] #### [facility] [address] [place], [place] [address] Emmanuel Plata M.D. [id number] [Mass/Vol]105 mg/cRHvwq51-34FmmeyejqlDoctors Hospital Comment on above:Order Comment: [facility] has implemented the eGFR calculation approach that does not have a coefficient for race that conforms to the NKF-ASN Task Force Recommendations.Performed By: #### [id number] #### [facility] [address] [place], [place] [address] Emmanuel Plata M.D. [id number] (Bld) [Moles/Vol]24 mmol/JFemvkg58-45MdeqhvzskParkview Health Bryan Hospital Comment on above:Order Comment: [facility] has implemented the eGFR calculation approach that does not have a coefficient for race that conforms to the NKF-ASN Task Force Recommendations.Performed By: #### [id number] #### [facility] [address] [place], [place] [address] Emmanuel Plata M.D. [id number] [Moles/Vol]4.3 mmol/LNormal3.5-5.1RHocking Valley Community HospitalComment on above:Order Comment: [facility] has implemented the eGFR calculation approach that does not have a coefficient for race that conforms to the NKF-ASN Task Force Recommendations.Performed By: #### [id number] #### [facility] [address] [place] [address] Emmanuel Plata M.D. [id number] [Moles/Vol]141 mmol/XEylqei492-713QjlozhhnvParkview Health Bryan Hospital Comment on above:Order Comment: [facility] has implemented the eGFR calculation approach that does not have a coefficient for race that conforms to the NKF-ASN Task Force Recommendations.Performed By: #### [id number] #### [facility] [address] [place], [place] [address] Emamnuel Plata M.D. [id number] nitrogen [Mass/Vol]20 mg/dLNormal8-25[facility] Comment on above:Order Comment: [facility] has implemented the eGFR calculation approach that does not have a coefficient for race that conforms to the NKF-ASN Task Force Recommendations.Performed By: #### [id number] #### [facility] [address] [place], [place] [address] Emmanuel Plata M.D. [id number] nitrogen/Creatinine [Mass ratio]18.0 mg/yaJgyxwq41.0-20.0 [facility] Bryan HospitalComment on above:Order Comment: [facility] has implemented the eGFR calculation approach that does not have a coefficient for race that conforms to the NKF-ASN Task Force Recommendations.Performed By: #### [id number] #### [facility] [address] [address] Emmanuel Plata M.D. [id number] metabolic 2000 panelon 40-37-8092Oeqxa gap [Moles/Vol]15 mmol/L 10 - 20 mmol/LOhioHealthCalcium [Mass/Vol]9 mg/dL8.4 - 10.2 mg/dLOhioHealth Chloride [Moles/Vol]106 mmol/L98 - 108 mmol/LOhioHealthCreatinine [Mass/Vol]1.11 mg/dL0.80 - 1.30 mg/dLOhioHealthGFR/1.73 sq M.predicted CKD-EPI (S/P/Bld) [Vol rate/Area]65- PINFOhioHealthComment on above:Estimated GFR was calculated using the 2020 CKD-EPI creatinine equation.Glucose [Mass/Vol]105 mg/nWLpbj19 - 99 mg/dLOhioHealthHCO3 [Moles/Vol]24 mmol/L21 - 32 mmol/LOhioHealthInterpretation and review of laboratory resultsAbnormalOhioHealthPotassium [Moles/Vol]4.3 mmol/L3.5 - 5.1 mmol/LOhioHealthSodium [Moles/Vol]141 mmol/L135 - 145 mmol/L OhioHealthUrea nitrogen [Mass/Vol]20 mg/dL8 - 25 mg/dLOhioHealthUrea nitrogen/Creatinine [Mass ratio]18 mg/mg10.0 - 20.0OhioOhioHealth [facility] has implemented the eGFR calculation approach that does not have a coefficient for race that conforms to the NKF-ASN Task Force Recommendations.OhioHealthBlood type and Indirect antibody screen panel (Bld)on 03-01-6873YYH and Rh group Nom (Bld)Blood group O Rh(D) positiveOhioHealthBlood group antibody screen QlNegativeOhioHealthSpecimen Dhipgzw0303/19/2025 23:59 EST OhioHealthOhioHealthCBCon 81-70-7288CNVP NRBC0.0 %NormalRiMercy Health Springfield Regional [facility] Center HospitalComment on above:Performed By: #### [id number] #### [facility] [address] [place], [place] [address] Emmanuel Plata M.D. [id number] NRBC ABS COUNT0.00 K/mcLNormal0.00-0.00RiMercy Health Springfield Regional Medical Center HospitalComment on above:Performed By: #### [id number] #### [facility] [address] [place] [address] Emmanuel Plata M.D. [id number] distribution width (RBC) [Ratio]13.3 %Kbmskz66.6-14.8 [facility] HospitalComment on above:Performed By: #### [id number] #### [facility] [address] [place] [address] Emmanuel Plata M.D. [id number] (Bld) [Volume fraction]36.7 %Low41.0-53.0RiMercy Health Springfield Regional Medical Center HospitalComment on above:Performed By: #### [id number] #### [facility] [address] [place], [place] [address] Emmanuel Plata M.D. [id number] (Bld) [Mass/Vol]12.0 g/dLLow13.5-17.5RiMercy Health Springfield Regional Medical Center HospitalComment on above:Performed By: #### [id number] #### [facility] [address] [place] [address] Emmanuel Plata M.D. [id number] (RBC) [Entitic mass]29.9 fgNyqiym96.0-34.0RiMercy Health Springfield Regional Medical Center HospitalComment on above:Performed By: #### [id number] #### [facility] [address] [place] [address] Emmanuel Plata M.D. [id number] (RBC) [Entitic vol]91.3 eHItayry53.0-100.0RiMercy Health Springfield Regional Medical Center HospitalComment on above:Performed By: #### [id number] #### [facility] [address] [place] [address] Emmanuel Plata M.D. [id number] CORPUSCULAR HEMOGLOBIN CONC32.7 g/jKLdvdlf62.0-37.0RiMercy Health Springfield Regional Medical Center HospitalComment on above:Performed By: #### [id number] #### [facility] [address] [place] [address] Emmanuel Plata M.D. [id number] mean volume (Bld) [Entitic vol]10.1 fLNormal9.4-12.4RiversAdena Pike Medical Center HospitalComment on above:Performed By: #### [id number] #### [facility] [address] [place] [address] Emmanuel Plata M.D. [id number] (Bld) [#/Vol]159 10*3/rALafugy904-043FstpmblrrDoctors HospitalComment on above:Performed By: #### [id number] #### [facility] [address] [place] [address] Emmanuel Plata M.D. [id number] (Bld) [#/Vol]4.02 10*6/uLLow4.50-5.90RiDoctors Hospital Comment on above:Performed By: #### 11256 #### [facility] [address] [place] [address] Emmanuel Plata M.D. [id number] (Bld) [#/Vol]4.27 10*3/uLLow4.50-11.00RiDoctors Hospital Comment on above:Performed By: #### [id number] #### [facility] [address] [place] [address] Emmanuel Plata M.D. [id number] panel Auto (Bld)on 33-63-3159Vvsijjcfdbx distribution width (RBC) [Entitic vol]13.3 %11.6 - [...] (Bld) [#/Vol]4.27 10*3/uLLowOhioHealthOhioHealthINR Coag (PPP) [Relative time]on 46-83-5745GW Coag (PPP) [Time]14.7 sHighOhioHealth During the induction phase of oral anticoagulation, the INR may not reflect the anticoagulation status of the patient. Therapeutic ranges for INR's are: Most clinical situations: INR 2.0-3.0 Mechanical Prosthetic Valve: INR 2.5-3.5 Critical: INR >5.0OhioHealthMAGNESIUM LEVELon 78-87-9718Saffbmyfo [Mass/Vol]2.3 mg/dLNormal1.6-2.4RHocking Valley Community HospitalComment on above:Performed By: #### [id number] #### [facility] [address] [place], [place] [address] Emmanuel Plata M.D. [id number] 45-85-6694Wkwtwxxyr [Mass/Vol]2.3 mg/dL1.6 - 2.4 mg/dL OhioPomerene HospitalMagnesium [Mass/Vol]on 52-76-8720Sxodunvwtbtrre and review of laboratory resultsNormalOhioHealthNo Panel InformationOrdered By: Flory Pino on 67-92-4675Dqogclgmmlxzjb and review of laboratory resultsAbnormalOhioHealth OhioPomerene HospitalNo Panel Informationon 58-30-9908CamiLgiecgJE/INRon 61-66-4565ZCJ Coag (PPP) [Relative time]1.1 {INR}0.8 - 1.1OhioHealthINR Coag (PPP) [Relative time] 1.1 {INR}Normal0.8-1.1RHocking Valley Community HospitalComment on above:Order Comment: During the induction phase of oral anticoagulation, the INR may not reflect the anticoagulation status of the patient. Therapeutic ranges for INR's are:Most clinical situations: INR 2.0-3.0Mechanical Prosthetic Valve: INR 2.5- 3.5Critical: INR >5.0Performed By: #### [id number] ####[facility] [address] [place] [address] Emmanuel Plata M.D. [id number] Coag (PPP) [Time]14.7 sHigh11.8-14.3RHocking Valley Community Hospital Comment on above:Order Comment: During the induction phase of oral anticoagulation, the INR may not reflect the anticoagulation status of the patient. Therapeutic ranges for INR's are:Most clinical situations: INR 2.0- 3.0Mechanical Prosthetic Valve: INR 2.5-3.5Critical: INR >5.0Performed By: #### [id number] ####[facility] [address] [place], [place] [address] Emmanuel Plata M.D. [id number] AND SCREENon 03-16-2025 TYPE AND SCREENABORH: O Positive AB SCREEN: Negative EXPIRATION DATE: 03/19/2025 23:59 ESTNormalRiDoctors HospitalComment on above:Performed By: #### [id number] #### [facility] [address] [place] [address] Emmanuel Plata M.D. [id number] [facility]IN [facility]-12[facility]FT SAPHENOUS VEIN MAPPatient Info Name: Tristin Powell Age: 85 years : 1940 Gender: Male Exam Date: 03/14/2025 9:26 PM Patient Status: INPATIENT Site Location: [facility] Indications Z01.810 - Encounter for preprocedural cardiovascular examination Procedure Description 19195 Duplex examination using B-mode, color and spectral Doppler of extremity veins including responses to compression and other maneuvers; complete bilateral study. Insurance Agent: Cristian Ellis RVT, [facility] Staff Ordering Physician: Beena Barraza Conclusions [...] Aaron Hein MD, RPVI on 03/16/2025 11:15 AMNormalParkview Health Bryan HospitalUS UE VEIN [facility]on 18-69-7296HW UE VEIN MAPPatient Info Name: Tristin Powell Age: 85 years : 1940 Gender: Male Exam Date: 03/14/2025 9:20 PM Patient Status: INPATIENT Site Location: [facility] Indications Z01.810 - Encounter for preprocedural cardiovascular examination Procedure Description 36503 Duplex examination using B-mode, color and spectral Doppler of extremity veins including responses to compression and other maneuvers; complete bilateral study. Insurance Agent: Cristian Ellis RVT, [facility] Staff Ordering Physician: Beena Celis * [...] Aaron Hein MD, RPLUIZA on 03/16/2025 11:14 AMNormalRiversWhite HospitalUltmoberly regional medical center Saphenous vein mappingon 24-90-8564Qilqciz Info Name: Tristin Powell Age: 85 years : 1940 Gender: Male Exam Date: 03/14/2025 9:26 PM Patient Status: INPATIENT Site Location: [facility] Indications Z01.810 - Encounter for preprocedural cardiovascular examination Procedure Description 46509 Duplex examination using B-mode, color and spectral Doppler of extremity veins including responses to compression and other maneuvers; complete bilateral study. Insurance Agent: Cristian Ellis RVT, [facility] Staff Ordering Physician: Beena Barraza Conclusions [...] Aaron Hein MD, NATANAEL on 03/16/2025 11:15 [facility] Melvina, Aaron Mas MD - 03/16/2025 Patient Info Name: Tristin Powell Age: 85 years : 1940 Gender: Male Exam Date: 03/14/2025 9:26 PM Patient Status: INPATIENT Site Location: [facility] Indications Z01.810 - Encounter for preprocedural cardiovascular examination Procedure Description 61753 Duplex examination using B-mode, color and spectral Doppler of extremity veins including responses to compression and other maneuvers; complete bilateral study. Insurance Agent: Cristian Ellis RVT, [facility] Staff Ordering Physician: Beena Barraza Conclusions [...] Hein MD, RPVI on 03/16/2025 11:15 AM [facility] extremity vein mappingon 45-22-7712Sdzmiuh Info Name: Tristin Powell Age: 85 years : 1940 Gender: Male Exam Date: 03/14/2025 9:20 PM Patient Status: INPATIENT Site Location: [facility] Indications Z01.810 - Encounter for preprocedural cardiovascular examination Procedure Description 18934 Duplex examination using B-mode, color and spectral Doppler of extremity veins including responses to compression and other maneuvers; complete bilateral study. Insurance Agent: Cristian Ellis RVT, [facility] Staff Ordering Physician: Beena Barraza Conclusions [...] 9:20 PM Patient Status: INPATIENT Site Location: [facility] Indications Z01.810 - Encounter for preprocedural cardiovascular examination Procedure Description 78266 Duplex examination using B-mode, color and spectral Doppler of extremity veins including responses to compression and other maneuvers; complete bilateral study. Insurance Agent: Cristian Ellis RVT, [facility] Staff Ordering Physician: Beena Barraza Conclusions [...] RPVI on 03/16/2025 11:14 AM [facility] 79-43-2352bTSE Coag (Bld) [Time]33 sOhioHealthaPTT Coag (Bld) [Time]33 bTjynus60-24IxmjaymfgDoctors HospitalComment on above:Order Comment: Therapeutic range for APTT's is 68 - 104 secondsPerformed By: #### [id number] ####[facility] [address] [place] [address] Emmanuel Plata M.D. [id number] METABOLIC PANELon 03-15-2025 Anion gap [Moles/Vol]13 mmol/LWelfby00-52RliyqlploDoctors HospitalComment on above:Order Comment: [facility] has implemented the eGFR calculation approach that does not have a coefficient for race that conforms to the NKF-ASN Task Force Recommendations.Performed By: #### [id number] #### [facility] [address] [place] [address] Emmanuel Plata M.D. [id number] [Mass/Vol]8.9 mg/dLNormal8.4-10.2RiversWhite Hospital Comment on above:Order Comment: [facility] has implemented the eGFR calculation approach that does not have a coefficient for race that conforms to the NKF-ASN Task Force Recommendations.Performed By: #### [id number] #### [facility] [address] [place] [address] Emmanuel Plata M.D. [id number] [Moles/Vol]108 mmol/UFxzrlw33-894KqzeqiuoyDoctors Hospital Comment on above:Order Comment: [facility] has implemented the eGFR calculation approach that does not have a coefficient for race that conforms to the NKF-ASN Task Force Recommendations.Performed By: #### [id number] #### [facility] [address] [place], [place] [address] Emmanuel Plata M.D. [id number] [Mass/Vol]1.12 mg/dLNormal0.80-1.30RiDoctors HospitalComment on above:Order Comment: [facility] has implemented the eGFR calculation approach that does not have a coefficient for race that conforms to the NKF-ASN Task Force Recommendations.Performed By: #### [id number] #### [facility] [address] [place] [address] Emmanuel Plata M.D. [id number] mL/min/1.73 i9Yghgze>=60RiDoctors HospitalComment on above:Order Comment: [facility] has implemented the eGFR calculation approach that does not have a coefficient for race that conforms to the NKF-ASN Task Force Recommendations.Result Comment: Estimated GFR was calculated using the 2020 CKD-EPI creatinine equation.Performed By: #### [id number] #### [facility] [address] [place], [place] [address] Emmanuel Plata M.D. [id number] [Mass/Vol]139 mg/iWWlrb90-19HtssjrynnDoctors Hospital Comment on above:Order Comment: [facility] has implemented the eGFR calculation approach that does not have a coefficient for race that conforms to the NKF-ASN Task Force Recommendations.Performed By: #### [id number] #### [facility] [address] [place], [place] [address] Emmanuel Plata M.D. [id number] (Bld) [Moles/Vol]24 mmol/WXvputd00-12DlepynskqDoctors Hospital Comment on above:Order Comment: [facility] has implemented the eGFR calculation approach that does not have a coefficient for race that conforms to the NKF-ASN Task Force Recommendations.Performed By: #### [id number] #### [facility] [address] [place] [address] Emmanuel Plata M.D. [id number] [Moles/Vol]3.9 mmol/LNormal3.5-5.1RHocking Valley Community HospitalComment on above:Order Comment: [facility] has implemented the eGFR calculation approach that does not have a coefficient for race that conforms to the NKF-ASN Task Force Recommendations.Performed By: #### [id number] #### [facility] [address] [place], [place] [address] Emmanuel Plata M.D. [id number] [Moles/Vol]141 mmol/WXxiqgv642-997LhzgolwwbParkview Health Bryan Hospital Comment on above:Order Comment: [facility] has implemented the eGFR calculation approach that does not have a coefficient for race that conforms to the NKF-ASN Task Force Recommendations.Performed By: #### [id number] #### [facility] [address] [place], [place] [address] Emmanuel Plata M.D. [id number] nitrogen [Mass/Vol]19 mg/dLNormal8-25[facility] Comment on above:Order Comment: [facility] has implemented the eGFR calculation approach that does not have a coefficient for race that conforms to the NKF-ASN Task Force Recommendations.Performed By: #### [id number] #### [facility] [address] [place], [place] [address] Emmanuel Plata M.D. [id number] nitrogen/Creatinine [Mass ratio]17.0 mg/lmIusawb76.0-20.0 [facility] HospitalComment on above:Order Comment: [facility] has implemented the eGFR calculation approach that does not have a coefficient for race that conforms to the NKF-ASN Task Force Recommendations.Performed By: #### [id number] #### [facility] [address] [place], [place] [address] Emmanuel Plata M.D. [id number] metabolic 2000 panelon 64-48-5087Oswev gap [Moles/Vol]13 mmol/L 10 - 20 mmol/LOhioHealthCalcium [Mass/Vol]8.9 mg/dL8.4 - 10.2 mg/dLOhioHealth Chloride [Moles/Vol]108 mmol/L98 - 108 mmol/LOhioHealthCreatinine [Mass/Vol]1.12 mg/dL0.80 - 1.30 mg/dLOhioHealthGFR/1.73 sq M.predicted CKD-EPI (S/P/Bld) [Vol rate/Area]64- PINFOhioHealthComment on above:Estimated GFR was calculated using the 2020 CKD-EPI creatinine equation.Glucose [Mass/Vol]139 mg/kKWwzc24 - 99 mg/dLOhioHealthHCO3 [Moles/Vol]24 mmol/L21 - 32 mmol/LOhioHealthInterpretation and review of laboratory resultsAbnormalOhioHealthPotassium [Moles/Vol]3.9 mmol/L3.5 - 5.1 mmol/LOhioHealthSodium [Moles/Vol]141 mmol/L135 - 145 mmol/L OhioHealthUrea nitrogen [Mass/Vol]19 mg/dL8 - 25 mg/dLOhioHealthUrea nitrogen/Creatinine [Mass ratio]17 mg/mg10.0 - 20.0[facility] has implemented the eGFR calculation approach that does not have a coefficient for race that conforms to the NKF-ASN Task Force Recommendations.[facility] 70-58-4197WREA NRBC0.0 %NormalRiMercy Health Springfield Regional Medical Center HospitalComment on above:Performed By: #### [id number] #### [facility] [address] [place] [address] Emmanuel Plata M.D. [id number] NRBC ABS COUNT0.00 K/mcLNormal0.00-0.00RiDoctors HospitalComment on above:Performed By: #### [id number] #### [facility] [address] [place], [place] [address] Emmanuel Plata M.D. [id number] distribution width (RBC) [Ratio]13.4 %Nzrren03.6-14.8 [facility] HospitalComment on above:Performed By: #### [id number] #### [facility] [address] [place], [place] [address] Emmanuel Plata M.D. [id number] (Bld) [Volume fraction]34.9 %Low41.0-53.0RiDoctors HospitalComment on above:Performed By: #### [id number] #### [facility] [address] [place], [place] [address] Emmanuel Plata M.D. [id number] (Bld) [Mass/Vol]11.7 g/dLLow13.5-17.5[facility] HospitalComment on above:Performed By: #### [id number] #### [facility] [address] [place] [address] Emmanuel Plata M.D. [id number] (RBC) [Entitic mass]30.4 zoGscuqh32.0-34.0RiMercy Health Springfield Regional Medical Center HospitalComment on above:Performed By: #### [id number] #### [facility] [address] [place] [address] Emmanuel Plata M.D. [id number] (RBC) [Entitic vol]90.6 nFItzhee08.0-100.0RiversAdena [facility] Center HospitalComment on above:Result Comment: Repeated AND verifiedPerformed By: #### [id number] #### [facility] [address] [place] [address] Emmanuel Plata M.D. [id number] CORPUSCULAR HEMOGLOBIN CONC33.5 g/oCUjguxn55.0-37.0RiMercy Health Springfield Regional Medical Center HospitalComment on above:Result Comment: Repeated AND verified Performed By: #### [id number] #### [facility] [address] [place] [address] Emmanuel Plata M.D. [id number] mean volume (Bld) [Entitic vol]9.9 fLNormal9.4-12.4Riverside Worship HospitalComment on above:Performed By: #### [id number] #### [facility] [address] [place], [place] [address] Emmanuel Plata M.D. [id number] (Bld) [#/Vol]144 10*3/xWBhv852-347Lmnlxdaee Methodist HospitalComment on above:Performed By: #### [id number] #### [facility] [address] [place] [address] Emmanuel Plata M.D. [id number] (Bld) [#/Vol]3.85 10*6/uLLow4.50-5.90[facility] Comment on above:Performed By: #### [id number] #### [facility] [address] [place] [address] Emmanuel Plata M.D. [id number] (Bld) [#/Vol]3.23 10*3/uLLow4.50-11.00[facility] Comment on above:Performed By: #### [id number] #### [facility] [address] [place] [address] Emmanuel Plata M.D. [id number] panel Auto (Bld)on 61-23-2836Mrcssbaavqx distribution width (RBC) [Entitic vol]13.4 %11.6 - [...] 10*6/uLLowOhioHealthWBC (Bld) [#/Vol]3.23 10*3/uLLowOhioHealth OhioHealthECG 12 Leadon 46-96-5656Hywvyg Yqkp32NABMlzeAyeoluJ Qvkm23akfmovo OhioHealthP-R Nyuatwjw044 msOhioHealthQ-T Ixceiaew110 msOhioHealthQRS Cmxmbzjp48 msOhioHealthQTC Calculation (Bezet)470 msOhioHealthR Sqfm68jcvybymPeutPclpcwO Xsyb25ndmssvoPwcrMdbaozZwrkkmeqqsh Znii33DPSIikaGahusoZoyfx rhythm with Premature supraventricular complexes Otherwise normal ECG Confirmed by OTILIO MONTOYA M.D. ([id number]) on 03/15/2025 6:58:39 AMMUSEOhioHealth HEMOGLOBIN AND HEMATOCRITon 75-98-9594Oytslhkcac (Bld) [Volume fraction]31.0 % Low41.0-53.0RiversWhite HospitalComment on above:Performed By: #### [id number] #### [facility] [address] [place], [place] [address] Emmanuel Plata M.D. [id number] (Bld) [Mass/Vol]12.4 g/dLLow13.5-17.5RiDoctors HospitalComment on above:Performed By: #### [id number] #### [facility] [address] [place] [address] Emmanuel Plata M.D. [id number] and Hematocrit panel (Bld)on 32-52-8189Mwefftqvct (Bld) [Volume fraction]31 %Low41.0 - 53.0 %OhioHealthHemoglobin (Bld) [Mass/Vol]12.4 g/dLLow13.5 - 17.5 g/dLOhioHealthInterpretation and review of laboratory results AbnormalOhioHealthOhioHealthMAGNESIUM LEVELon 08-16-8728Uxupqdqkl [Mass/Vol]2.2 mg/dLNormal1.6-2.4RiversWhite HospitalComment on above:Performed By: #### [id number] #### [facility] [address] [address] Emmanuel Plata M.D. [id number] 96-47-3179Vhhkynzwm [Mass/Vol]2.2 mg/dL1.6 - 2.4 mg/dL OhioPomerene HospitalMagnesium [Mass/Vol]on 54-86-8532Jgckctvrackgxm and review of laboratory resultsNormalOhioHealthNo Panel Informationon 73-35-1542ToceOprqyr Repeat EKGon 32-22-5189Gqufvq Ylxq01VMBAtfhIumsjhB-K Ycjcckue957 msOhioHealthQ-T Joknvcpn340 msOhioHealthQRS Afjmabxf56 msOhioHealthQTC Calculation (Bezet)502 msOhioHealthR Omqi96jtzvwifIresLauxhaM Qoav87lxmmicoTlnpEhedpgHfbcnfprgbh Rate93 BPMOhioHealthSinus rhythm with frequent Premature ventricular complexes Prolonged QT Abnormal ECG Confirmed by OTILIO MONTOYA M.D. ([id number]) on 03/15/2025 7:01:22 AMMUSEOhioHealthaPTT Coag (Bld) [Time]on 33-82-0890Lvqjqydvbhapfw and review of laboratory results NormalOhioHealthTherapeutic range for APTT's is 68 - 104 secondsMercy Health Willard Hospital metabolic 1998 panelOrdered By: Regina Dillon on 38-68-2599Hqtjg gap [Moles/Vol]16 mmol/L10 - 20 mmol/LOhioHealthChloride [Moles/Vol]102 mmol/L 98 - 108 mmol/LOhioHealthCreatinine [Mass/Vol]1.12 mg/dL0.80 - 1.30 mg/dL [facility] HospitalGFR/1.73 sq M.predicted CKD-EPI (S/P/Bld) [Vol rate/Area]64- PINF OhioPomerene HospitalComment on above:Estimated GFR was calculated using the 2020 CKD-EPI creatinine equation.Glucose [Mass/Vol]100 mg/zSTpur12 - 99 mg/dLOhioHealthHCO3 [Moles/Vol]25 mmol/L21 - 32 mmol/LOhioHealthInterpretation and review of laboratory resultsAbnormalOhioHealthPotassium [Moles/Vol]3.8 mmol/L3.5 - 5.1 mmol/LOhioHealthSodium [Moles/Vol]139 mmol/L135 - 145 mmol/LOhioHealthUrea nitrogen [Mass/Vol]20 mg/dL8 - 25 mg/dLOhioHealthUrea nitrogen/Creatinine [Mass ratio]17.9 mg/mg10.0 - 20.0[facility] has implemented the eGFR calculation approach that does not have a coefficient for race that conforms to the NKF-ASN Task Force Recommendations.[facility] Auto Differentialon 88-14-2183Owxjizaar (Bld) [#/Vol]0.02 10*3/uL OhioHealthBasophils/100 WBC (Bld)0.6 %OhioHealthEosinophils (Bld) [#/Vol]0.12 10*3/uLOhioHealthEosinophils/100 WBC (Bld)3.4 %[facility] HospitalErythrocyte distribution width (RBC) [Entitic vol]13.5 %11.6 - 14.8 %[facility] HospitalHematocrit (Bld) [Volume fraction]39.3 %Low41.0 - 53.0 %[facility] HospitalHemoglobin (Bld) [Mass/Vol]13.2 g/dLLow13.5 - 17.5 g/dLOhioHealthImmature granulocytes (Bld) [#/Vol]0.01 10*3/uLOhioHealthImmature granulocytes/100 WBC (Bld)0.3 %[facility] Comment on above:The IG parameter is the percentage of metamyelocytes, myelocytes and promyelocytes. An immature granulocyte count (IG) of 1% or more suggests the possibility of infection, an IG count of 3% is very likely related to an infection.Interpretation and review of laboratory resultsAbnormal [facility] HospitalLymphocytes (Bld) [#/Vol]0.65 10*3/uLLowOhioHealthLymphocytes/100 WBC (Bld)18.6 %[facility] HospitalMCH (RBC) [Entitic mass]30.4 pg26.0 - 34.0 [...] (Bld) [#/Vol]3.5 10*3/uLLowOhioHealth OhioHealthCBC WITH AUTO DIFFERENTIALon 19-14-6630OOLT NRBC0.0 %NormalRiverside Worship HospitalComment on above:Performed By: #### [id number] #### [facility] [address] [place], [place] [address] Emmanule Plata M.D. [id number] NRBC ABS COUNT0.00 K/mcLNormal0.00-0.00Riverside Worship HospitalComment on above:Performed By: #### [id number] #### [facility] [address] [place] [address] Emmanuel Plata M.D. [id number] ABSOLUTE COUNT0.02 K/mcLNormal0.00-0.30R[facility] Worship HospitalComment on above:Performed By: #### [id number] #### [facility] [address] [place], [place] [address] Emmanuel Plata M.D. [id number]/100 WBC (Bld)0.6 %NormalRiMercy Health Springfield Regional Medical Center HospitalComment on above:Performed By: #### [id number] #### [facility] [address] [place], [place] [address] Emmanuel Plata M.D. [id number] (Bld) [#/Vol]0.12 10*3/uLNormal0.00-0.50RiMercy Health [facility] HospitalComment on above:Performed By: #### [id number] #### [facility] [address] [place] [address] Emmanuel Plata M.D. [id number]/100 WBC (Bld)3.4 %NormalRiMercy Health [facility] Hospital Comment on above:Performed By: #### [id number] #### [facility] [address] [place] [address] Emmanuel Plata M.D. [id number] distribution width (RBC) [Ratio]13.5 %Tvapbw97.6-14.8 [facility] HospitalComment on above:Performed By: #### [id number] #### [facility] [address] [place], [place] [address]Nessa Plata M.D. [id number] (Bld) [Volume fraction]39.3 %Low41.0-53.0RiMercy Health Springfield Regional Medical Center HospitalComment on above:Performed By: #### [id number] #### [facility] [address] [place], [place] [address] Emmanuel Plata M.D. [id number] (Bld) [Mass/Vol]13.2 g/dLLow13.5-17.5RiMercy Health Springfield Regional Medical Center HospitalComment on above:Performed By: #### [id number] #### [facility] [address] [place], [place] [address]Nessa Plata M.D. [id number] ABSOLUTE0.01 K/mcLNormal0.00-0.30[facility] Comment on above:Performed By: #### [id number] #### [facility] [address] [place], [place] [address] Emmanuel Plata M.D. [id number] PERCENT0.30 %NormalOhiohealth Pickerington Methodist Hospital HospitalComment on above: Result Comment: The IG parameter is the percentage of metamyelocytes, myelocytes and promyelocytes.An immature granulocyte count (IG) of 1% or more suggests the possibility of infection, an IG countof 3% is very likely related to an infection.Performed By: #### [id number] #### [facility] [address] [place] [address] Emmanuel Plata M.D. [id number] (Bld) [#/Vol]0.65 10*3/uLLow0.90-4.00[facility] HospitalComment on above:Performed By: #### [id number] #### [facility] [address] [place] [address] Emmanuel Plata M.D. [id number]/100 WBC (Bld)18.6 %[facility] Comment on above:Performed By: #### [id number] #### [facility] [address] [place], [place] [address] Emmanuel Plata M.D. [id number] (RBC) [Entitic mass]30.4 gyRdmnhr82.0-34.0[facility] HospitalComment on above:Performed By: #### [id number] #### [facility] [address] [place], [place] [address] Emmanuel Plata M.D. [id number] (RBC) [Entitic vol]90.6 eFRohifr43.0-100.0RiDoctors HospitalComment on above:Performed By: #### [id number] #### [facility] [address] [place], [place] [address] Emmanuel Plata M.D. [id number] CORPUSCULAR HEMOGLOBIN CONC33.6 g/mRMkqiux63.0-37.0[facility] HospitalComment on above:Performed By: #### [id number] #### [facility] [address] [place], [place] [address] Emmanuel Plata M.D. [id number] (Bld) [#/Vol]0.81 10*3/uLNormal0.30-0.90RiDoctors HospitalComment on above:Performed By: #### [id number] #### [facility] [address] [place], [place] [address] Emmanuel Plata M.D. [id number]/100 WBC (Bld)23.1 %NormalRiDoctors HospitalComment on above:Performed By: #### [id number] #### [facility] [address] [place], [place] [address] Emmanuel Plata M.D. [id number] ABSOLUTE COUNT1.89 K/mcLNormal1.70-7.00RiDoctors HospitalComment on above:Performed By: #### [id number] #### [facility] [address] [place], [place] [address] Emmanuel Plata M.D. [id number]/100 WBC (Bld)54.0 %[facility] Comment on above:Result Comment: Peripheral smear reviewed manuallyPerformed By: #### [id number] #### [facility] [address] [place], [place] [address] Emmanuel Plata M.D. [id number] mean volume (Bld) [Entitic vol]9.3 fLLow9.4-12.4RiversWhite HospitalComment on above:Performed By: #### [id number] #### [facility] [address] [place] [address] Emmanuel Plata M.D. [id number] (Bld) [#/Vol]173 10*3/sDKoljkh714-218FsswqqlznParkview Health Bryan HospitalComment on above:Performed By: #### [id number] #### [facility] [address] [place], [place] [address] Emmanuel Plata M.D. [id number] (Bld) [#/Vol]4.34 10*6/uLLow4.50-5.90[facility] Comment on above:Performed By: #### [id number] #### [facility] [address] [place] [address] Emmanuel Plata M.D. [id number] (Bld) [#/Vol]3.50 10*3/uLLow4.50-11.00[facility] Comment on above:Performed By: #### 78960 #### [facility] [address] [place], [place] [address] Emmanuel Plata M.D. [id number] 720-23-7239Yzhzw gap [Moles/Vol]16 mmol/PYpwqdl76-75CishabwdzParkview Health Bryan HospitalComment on above:Order Comment: [facility] has implemented the eGFR calculation approach that does not have a coefficient for race that conforms to the NKF-ASN Task Force Recommendations.Performed By: #### [id number] #### [facility] [address] [place] [address] Emmanuel Plata M.D. [id number] [Moles/Vol]102 mmol/JXeionl31-674IcftgvpfgParkview Health [facility] Hospital Comment on above:Order Comment: [facility] has implemented the eGFR calculation approach that does not have a coefficient for race that conforms to the NKF-ASN Task Force Recommendations.Performed By: #### [id number] #### [facility] [address] [place] [address] Emmanuel Plata M.D. [id number] [Mass/Vol]1.12 mg/dLNormal0.80-1.30RiDoctors HospitalComment on above:Order Comment: [facility] has implemented the eGFR calculation approach that does not have a coefficient for race that conforms to the NKF-ASN Task Force Recommendations.Performed By: #### [id number] #### [facility] [address] [place] [address] Emmanuel Plata M.D. [id number] mL/min/1.73 g1Wgcdwu>=60RiDoctors HospitalComment on above:Order Comment: [facility] has implemented the eGFR calculation approach that does not have a coefficient for race that conforms to the NKF-ASN Task Force Recommendations.Result Comment: Estimated GFR was calculated using the 2020 CKD-EPI creatinine equation.Performed By: #### [id number] #### [facility] [address] [place], [place] [address] Emmanuel Plata M.D. [id number] [Mass/Vol]100 mg/nLAwte41-42SuycbjchfDoctors Hospital Comment on above:Order Comment: [facility] has implemented the eGFR calculation approach that does not have a coefficient for race that conforms to the NKF-ASN Task Force Recommendations.Performed By: #### [id number] #### [facility] [address] [place], [place] [address] Emmanuel Plata M.D. [id number] (Bld) [Moles/Vol]25 mmol/OIudcqz90-26OwzkanszwParkview Health [facility] Hospital Comment on above:Order Comment: [facility] has implemented the eGFR calculation approach that does not have a coefficient for race that conforms to the NKF-ASN Task Force Recommendations.Performed By: #### [id number] #### [facility] [address] [place] [address] Emmanuel Plata M.D. [id number] [Moles/Vol]3.8 mmol/LNormal3.5-5.1RHocking Valley Community HospitalComment on above:Order Comment: [facility] has implemented the eGFR calculation approach that does not have a coefficient for race that conforms to the NKF-ASN Task Force Recommendations.Performed By: #### [id number] #### [facility] [address] [place] [address] Emmanuel Plata M.D. [id number] [Moles/Vol]139 mmol/YDqncyb062-248JasoiukfgParkview Health Bryan Hospital Comment on above:Order Comment: [facility] has implemented the eGFR calculation approach that does not have a coefficient for race that conforms to the NKF-ASN Task Force Recommendations.Performed By: #### [id number] #### [facility] [address] [place] [address] Emmanuel Plata M.D. [id number] nitrogen [Mass/Vol]20 mg/dLNormal8-25RiDoctors Hospital Comment on above:Order Comment: [facility] has implemented the eGFR calculation approach that does not have a coefficient for race that conforms to the NKF-ASN Task Force Recommendations.Performed By: #### [id number] #### [facility] [address] [place], [place] [address] Emmanuel Plata M.D. [id number] nitrogen/Creatinine [Mass ratio]17.9 mg/ymSidiyg20.0-20.0 [facility] HospitalComment on above:Order Comment: [facility] has implemented the eGFR calculation approach that does not have a coefficient for race that conforms to the NKF-ASN Task Force Recommendations.Performed By: #### [id number] #### [facility] [address] [place], [place] [address] Emmanuel Plata M.D. [id number] 90-21-0981EFTAGJU Attestation signed by Ben Hahn MD at [...] He underwent angiography 2 days ago in [place] where he was found to have progressive [...] Avascular necrosis of bone of hip ([facility]) Claudication COPD (chronic obstructive pulmonary disease) ([facility]) Coronary artery disease Herpes zoster Hyperlipidemia Hypertension PAD (peripheral artery disease) ([facility]) 01/21/2022 Posterior tibial tendinitis of right leg 11/07/2022 Prostate cancer ([facility]) Vascular disease Allergies: Doxycycline [...] vascular surgery colleagues I personally performed a pnbe-el-wshp diagnostic evaluation on this patient on the [...] mg Intravenous Q6H (more content not included)...NormalRiverside [facility] McAllenSULT Attestation signed by Mohsen Sarabia MD at 03/16/2025 10:33 AM Patient seen and examined. I have personally reviewed all pertinent labs, radiological studies and records. I have personally examined the patient and agree with resident/RESIDENT CARE DIRECTOR/PA assessment and plan with the following additional [...] (2019, [place]), left TMA who presented to [facility] on 03/14/2025 with worsening RLE pain [...] Beena Barraza MD General Surgery Resident, PGY-2 [facility] Please contact surgical administration intern environmental studies faculty member 5PM-6AM and weekends - #[phone] VTS Pager - #[phone] Admitted with these risk variables:None. Please see [...] Hyperlipidemia Hypertension PAD (peripheral artery disease) ([facility]) 01/21/2022 Posterior tibial tendinitis of right leg 11/07/2022 Prostate cancer (HCC) Vascular disease Past Surgical History: Procedure Laterality Date 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/08/2018 Procedure: LEFT MIDFOOT AMPUTATION; Surgeon: Flynn Mann DPM; Location: [facility] OR; Service: Podiatry ANKLE SURGERY Left BYPASS PERONEAL FEMORAL Right 09/07/2018 Procedure: BYPASS PERONEAL FEMORAL, RIGHT SAPHENOUS VEIN HARVEST, COMPLETION ANGIOGRAM; Surgeon: Mohsen Sarabia MD; Location: [facility]; Service: Cardiovascular CARDIAC CATHETERIZATION Left 09/05/2018 Procedure: Angio Lower Extremity; Surgeon: Ben Hahn MD; Location: [facility]; Service: Cardiovascular CARDIAC SURGERY 2017 triple bypass [...] chest rise Extremiti (more content not included)...NormalRiverside [facility] PflugervilleED Prov Noteon [id number] Prov NoteED PROVIDER NOTE [facility] EMERGENCY DEPARTMENT Patient Name: Tristin [...] Course User Index [EK] Elaine Macdonald MD [facility] Data: I saw and evaluated the [...] Avascular necrosis of bone of hip ([facility]) - Claudication - COPD (chronic obstructive pulmonary disease) ([facility]) - Coronary artery disease - Herpes zoster - Hyperlipidemia - Hypertension - PAD (peripheral artery disease) ([facility]) 01/21/2022 - Posterior tibial tendinitis of right leg 11/07/2022 - Prostate cancer ([facility]) - Vascular disease Past Surgical History: Procedure Laterality Date - 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/08/2018 Procedure: LEFT MIDFOOT AMPUTATION; Surgeon: Flynn Mann DPM; Location: [facility] OR; Service: Podiatry - ANKLE SURGERY Left - BYPASS PERONEAL FEMORAL Right 09/07/2018 Procedure: BYPASS PERONEAL FEMORAL, RIGHT SAPHENOUS VEIN HARVEST, COMPLETION ANGIOGRAM; Surgeon: Mohsen Sarabia MD; Location: [facility]; Service: Cardiovascular - CARDIAC CATHETERIZATION Left 09/05/2018 Procedure: Angio Lower Extremity; Surgeon: Ben Hahn MD; Location: [facility]; Service: Cardiovascular - CARDIAC SURGERY 2017 triple bypass - EGD N/A 10/10/2018 Procedure: ESOPHAGOGASTRODUODENO (more content not included)...NormalRiverside [facility] 75-89-9057Pvapt TubeHold for add-ons.[facility] Comment on above:Auto resulted.[facility] Topon 26-49-1161Zkbgy TubeHold for add-ons.[facility] Valley HospitalComment on above:Auto resulted.INR Coag (PPP) [Relative time] on 61-70-2322Hjwsjgggwibyex and review of laboratory resultsAbnormalOhioHealthPT Coag (PPP) [Time]14.6 sHighOhioHealthDuring the induction phase of oral anticoagulation, the INR may not reflect the anticoagulation status of the patient. Therapeutic ranges for INR's are: Most clinical situations: INR 2.0-3.0 Mechanical Prosthetic Valve: INR 2.5-3.5 Critical: INR >5.0OhioHealthOhioHealthNo Panel Informationon 03-14-2025 OhioHealthPT/INRon [id number] Coag (PPP) [Relative time]1.1 {INR}0.8 - 1.1 OhioHealthINR Coag (PPP) [Relative time]1.1 {INR}Normal0.8-1.1RHocking Valley Community HospitalComment on above:Order Comment: Therapeutic range for APTT's is 68 - 104 secondsPerformed By: #### [id number] #### [facility] [address] [place], [place] [address] Emmanuel Plata M.D. [id number] Coag (PPP) [Time]14.6 sHigh11.8-14.3RHocking Valley Community Hospital Comment on above:Order Comment: Therapeutic range for APTT's is 68 - 104 seconds Performed By: #### [id number] #### [facility] [address] [place] [address] Emmanuel Plata M.D. [id number] ANKLE/BRACHIAL INDICES EXTREMITY LIMITEDon 99-64-6936OI ANKLE/BRACHIAL INDICES EXTREMITY LIMITEDPatient Info Name: Tristin Powell Age: 85 years : 1940 Gender: Male Exam Date: 03/14/2025 8:20 AM Patient Status: OUTPATIENT Site Location: [facility] Indications I73.9 - Peripheral vascular disease, unspecified Procedure Description 42476 Limited bilateral noninvasive physiologic studies of upper or lower extremity arteries with bidirectional Doppler/PVR waveform analysis at 1-2 levels. Insurance Agent: Ernestina Campos RVT, EMIRVT Staff Ordering Physician: Mohsen Sarabia MD, RPLUIZA [...] Segmental BP RIGHT Brachial A mmH RIGHT SENIOR BIOINFORMATICS SPECIALIST mmH RIGHT SENIOR BIOINFORMATICS SPECIALIST Index: 0.31 RIGHT DPA mmH RIGHT DPA Index: 0.50 RIGHT Digit mmH RIGHT YAMILE Index: 0.50 RIGHT TBI Index: 0.00 LEFT Brachial A mmH LEFT SENIOR BIOINFORMATICS SPECIALIST Index: 0.40 LEFT SENIOR BIOINFORMATICS SPECIALIST mmH LEFT DPA Index: 0.55 LEFT DPA mmH LEFT YAMILE Index: 0.55 Doppler RIGHT SENIOR BIOINFORMATICS SPECIALIST Waveform: Monophasic RIGHT DPA Waveform: Monophasic LEFT SENIOR BIOINFORMATICS SPECIALIST Waveform: Monophasic LEFT DPA Waveform: Biphasic , PVR RIGHT Ankle Grade: Abnormal RIGHT Transmetarsal Grade: Absent RIGHT Digit (PPG) Grade: Absent LEFT Ankle Grade: Abnormal Prior Interventions 09/07/2018 bypass graft- left fem-peroneal. Report Signatures Finalized by Radha Lomas DO, INOCENCIO, NATANAEL, FS on 03/14/2025 11:55 AMNormalRiverside Worship HospitalUS ANKLE/BRACHIAL INDICES EXTREMITY LIMITED Patient Info Name: Tristin Powell Age: 85 years : 1940 Gender: Male Exam Date: 03/14/2025 8:20 AM Patient Status: OUTPATIENT Site Location: [facility] Indications I73.9 - Peripheral vascular disease, unspecified Procedure Description 18939 Limited bilateral noninvasive physiologic studies of upper or lower extremity arteries with bidirectional Doppler/PVR waveform analysis at 1-2 levels. Insurance Agent: Ernestina Campos RVT, EMIRVT Staff Ordering Physician: Mohsen Sarabia MD, RPLUIZA [...] Segmental BP RIGHT Brachial A mmH RIGHT SENIOR BIOINFORMATICS SPECIALIST mmH RIGHT SENIOR BIOINFORMATICS SPECIALIST Index: 0.31 RIGHT DPA mmH RIGHT DPA Index: 0.50 RIGHT Digit mmH RIGHT YAMILE Index: 0.50 RIGHT TBI Index: 0.00 LEFT Brachial A mmH LEFT SENIOR BIOINFORMATICS SPECIALIST Index: 0.40 LEFT SENIOR BIOINFORMATICS SPECIALIST mmH LEFT DPA Index: 0.55 LEFT DPA mmH LEFT YAMILE Index: 0.55 Doppler RIGHT SENIOR BIOINFORMATICS SPECIALIST Waveform: Monophasic RIGHT DPA Waveform: Monophasic LEFT SENIOR BIOINFORMATICS SPECIALIST Waveform: Monophasic LEFT DPA Waveform: Biphasic , PVR RIGHT Ankle Grade: Abnormal RIGHT Transmetarsal Grade: Absent RIGHT Digit (PPG) Grade: Absent LEFT Ankle Grade: Abnormal Prior Interventions 09/07/2018 bypass graft- left fem-peroneal. Report Signatures Finalized by Radha Lomas DO, INOCENCIO, RPVI, FSVM on 03/14/2025 11:55 AM Dictated by: RADHA SU on MonMar 14, 2025 11:55:02 AM EDT Transcribed by: RADHA SU on MonMar 14, 2025 11:55:02 AM EDT Finalized by: RADHA SU on MonMar 14, 2025 11:55:02 AM EDTNormalRiverside Baylor Scott & White [facility] Center – PflugervilleUS DUPLEX ARTERIAL LEG RIGHTon [id number] DUPLEX ARTERIAL LEG RIGHTPatient Info Name: Tristin Poewll Age: 85 years : 1940 Gender: Male Exam Date: 03/14/2025 8:20 AM Patient Status: OUTPATIENT Site Location: [facility] Indications I73.9 - Peripheral vascular disease, unspecified Procedure Description 72333 Duplex scan of lower extremity arteries or arterial bypass grafts using B-mode, color and spectral Doppler; unilateral or limited study. Insurance Agent: Ernestina Campos RVT, RDVT Staff Ordering Physician: Mohsen Sarabia MD, RPLUIZA Conclusions * 50-99% stenosis in the right mid superficial femoral artery. * Unable to obtain right external iliac artery images due to bandaging from recent procedure. Risk Factors Patient with a history of hypertension, hyperlipidemia, CAD and PAD. 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 (cm/s): 115 RIGHT AIR DUCT MECHANIC EDV (cm/s): 7 RIGHT Prox PFA PSV [...] Distal LAUREL EDV (cm/s): 6 RIGHT Prox SENIOR BIOINFORMATICS SPECIALIST PSV (cm/s): 81 RIGHT Prox SENIOR BIOINFORMATICS SPECIALIST EDV (cm/s): 14 RIGHT Mid SENIOR BIOINFORMATICS SPECIALIST PSV (cm/s): 38 RIGHT Mid SENIOR BIOINFORMATICS SPECIALIST EDV (cm/s): 6 RIGHT Distal SENIOR BIOINFORMATICS SPECIALIST PSV (cm/s): 57 RIGHT Distal SENIOR BIOINFORMATICS SPECIALIST EDV (cm/s): 20 RIGHT Prox Gabriela [...] RVT, RPVI, FSVM on 03/14/2025 11:57 AMNormalRiverside Worship HospitalUS DUPLEX ARTERIAL LEG RIGHTPatient Info Name: Tristin Powell Age: 85 years : 1940 Gender: Male Exam Date: 03/14/2025 8:20 AM Patient Status: OUTPATIENT Site Location: [facility] Indications I73.9 - Peripheral vascular disease, unspecified Procedure Description 29754 Duplex scan of lower extremity arteries or arterial bypass grafts using B-mode, color and spectral Doppler; unilateral or limited study. Insurance Agent: Ernestina Campos RVT, [facility] Staff Ordering Physician: Mohsen Sarabia MD, [facility] Conclusions * 50-99% stenosis in the right mid superficial femoral artery. * Unable to obtain right external iliac artery images due to bandaging from recent procedure. Risk Factors Patient with a history of hypertension, hyperlipidemia, CAD and PAD. 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 (cm/s): 115 RIGHT AIR DUCT MECHANIC EDV (cm/s): 7 RIGHT Prox PFA PSV [...] Distal LAUREL EDV (cm/s): 6 RIGHT Prox SENIOR BIOINFORMATICS SPECIALIST PSV (cm/s): 81 RIGHT Prox SENIOR BIOINFORMATICS SPECIALIST EDV (cm/s): 14 RIGHT Mid SENIOR BIOINFORMATICS SPECIALIST PSV (cm/s): 38 RIGHT Mid SENIOR BIOINFORMATICS SPECIALIST EDV (cm/s): 6 RIGHT Distal SENIOR BIOINFORMATICS SPECIALIST PSV (cm/s): 57 RIGHT Distal SENIOR BIOINFORMATICS SPECIALIST EDV (cm/s): 20 RIGHT Prox Gabriela PSV (cm/s): 46 RIGHT Prox Gabriela EDV (cm/s): 12 RIGHT Mid Gabriela PSV (cm/s): 52 RIGHT Mid Gabriela EDV (cm/s): 18 RIGHT Distal Gabreila PSV (cm/s): 59 RIGHT Distal Gabriela EDV [...] on MonMar 14, 2025 11:57:02 AM EDTNormalRiverside Worship HospitalUS SAPHENOUS VEIN MAPon 12-54-9715AA SAPHENOUS VEIN MAPPatient Info Name: Tristin Powell Age: 85 years : 1940 Gender: Male Exam Date: 03/14/2025 9:26 PM Patient Status: INPATIENT Site Location: [facility] Indications Z01.810 - Encounter for preprocedural cardiovascular examination Procedure Description 95538 Duplex examination using B-mode, color and spectral Doppler of extremity veins including responses to compression and other maneuvers; complete bilateral study. Insurance Agent: Cristian Ellis RVT, [facility] Staff Ordering Physician: Beena Barraza Conclusions [...] on MonMar 16, 2025 11:15:31 AM EDTNormalRiverside Worship HospitalUS UE VEIN MAPon 85-24-4893EU UE VEIN MAPPatient Info Name: Tristin Powell Age: 85 years : 1940 Gender: Male Exam Date: 03/14/2025 9:20 PM Patient Status: INPATIENT Site Location: [facility] Indications Z01.810 - Encounter for preprocedural cardiovascular examination Procedure Description 49815 Duplex examination using B-mode, color and spectral Doppler of extremity veins including responses to compression and other maneuvers; complete bilateral study. Insurance Agent: Cristian Ellis RVT, [facility] Staff Ordering Physician: Beena Barraza Conclusions [...] 11:14 AM Dictated by: AARON HEIN on [place] Mar 16, 2025 11:14:40 AM EDT Transcribed by: AARON HEIN on [place] Mar 16, 2025 11:14:40 AM EDT Finalized by: AARON HEIN on [place] Mar 16, 2025 11:14:40 AM EDTNormalRiverside WorshipEnglewood Hospital and Medical CenterBasic Metabolic Panelon 89-66-4112Vzhypnfcge [facility] 66.NoFormerly [facility] Physician GroupComment on above:Result Comment: PERFORMED BY: [facility] [address] [place] [address] PATHOLOGIST TOOLS ADMINISTRATOR MAXIM HERNANDEZ M.D.Performed By: #### CBC, BMP ####[facility] [place] [address] USAGFR/1.73 sq M.predicted MDRD (S/P/Bld) [Vol rate/Area]mL/min/{1.73_m2}NormalThe Northern Regional Hospital Physician GroupComment on above:Performed By: #### CBC, BMP ####[address] [address] USABasophils [#/volume] in Blood by Automated count Ordered By: Duke Hector on 70-10-5708Hbvyjuizp (Bld) [#/Vol]0.0 10*3/uLNormal 0.0-0.2FGalion Community HospitalComment on above:Result Comment: PERFORMED BY: [facility] [address] [place] [address] PATHOLOGIST TOOLS ADMINISTRATOR MAXIM HERNANDEZ M.D.Performed By: #### CBC, BMP ####[address] [address] USABasophils/100 leukocytes in Blood by Automated countOrdered By: Duke Hector on 03-36-5372Duhzupqce/100 WBC (Bld) 1.1 %Normal.Flower HospitalComment on above:Performed By: #### CBC, BMP ####[address] [address] USACalcium [Mass/volume] in Serum or PlasmaOrdered By: Duke Hector on 51-79-8791Qymdxue [Mass/Vol]9.4 mg/dLNormal8.6-10.3FGalion Community HospitalComment on above:Performed By: #### CBC, BMP ####[address] [address] USACarbon dioxide, total [Moles/volume] in Serum or PlasmaOrdered By: Duke Hector on 91-13-2050CB0 [Moles/Vol]26.4 mmol/HXehgfk96.0-31.0Flower HospitalComment on above:Performed By: #### CBC, BMP ####[address] [address] USAChloride [Moles/volume] in Serum or PlasmaOrdered By: Duke Hector on 91-68-3847Unuqsoqg [Moles/Vol]105 mmol/GQgkerx21-298 Flower HospitalComment on above:Performed By: #### CBC, BMP ####[place] [address] [place] [id number] [facility] Complete Blood Count Auto Diffon 42-97-9445Azyz Corpuscular HGB Conc34.7 g/dL Tusubi49.5-35.6The [facility] Physician [facility] Hospital At Stone CountyComment on above:Performed By: #### CBC, BMP ####[place] [address] USANRBC%0.3 /100{WBC}Normal0-0.5The [facility] Physician GroupComment on above: Performed By: #### CBC, BMP ####[place] [address] USAWhite Blood Count2.4 [CFU]/mLLow4.1-10.5[facility] Physician [facility] Hospital At Stone CountyComment on above:Performed By: #### CBC, BMP ####[place] [address] [facility] Creatinine [Mass/volume] in Serum or PlasmaOrdered By: Duke Hector on 97-23-8947Asqizsoehb [Mass/Vol]1.06 mg/dLNormal0.70-1.30Flower HospitalComment on above:Performed By: #### CBC, BMP ####[place] [address] USAECG 12 lead ECGon 73-03-8779JWV 12 lead [facility] [address] [place] [address] [place] [address] Electrocardiograph Report Signed Patient: Tristin Powell MR#: [id number] : 1940 Acct:[id number] Age/Sex: 85 / M ADM Date: 03/12/25 Loc: [place] Room: Type: [facility] Attending Dr: Cristian Beaver MD Ordering [...] QT Abnormal ECG Confirmed by Mell Jackson ([id number]) on 03/13/2025 4:30:37 PM Referred By: Electronically Signed By: Mell Jackson Transcribed By: MUS Signed By Mell Jackson MD [address] [place] [address] Physician GroupEosinophils [#/volume] in Blood by Automated countOrdered By: Duke Hector on 89-38-1078Hlufxutugyw (Bld) [#/Vol] 0.1 10*3/uLNormal0.0-0.45Flower HospitalComment on above: Performed By: #### CBC, BMP ####[address] [address] USAEosinophils/100 leukocytes in Blood by Automated countOrdered By: Duke Hector on 69-63-1903Epyfaufyrjz/100 WBC (Bld)5.7 % Normal.Flower HospitalComment on above:Performed By: #### CBC, BMP ####[address] [address] [place] Erythrocyte distribution width [Ratio] by Automated countOrdered By: Duke Hector on 69-59-3194Jikedlzrzkd distribution width (RBC) [Ratio]14.7 %Normal 12.0-14.8Flower HospitalComment on above:Performed By: #### CBC, BMP ####[address] [address] USAErythrocytes [#/volume] in Blood by Automated countOrdered By: Duke Hector on 52-42-6374KVY (Bld) [#/Vol]4.29 10*6/uLNormal3.90-5.60Flower HospitalComment on above:Performed By: #### CBC, BMP ####[address] [address] USAGlucose [Mass/volume] in Serum or PlasmaOrdered By: Duke Hector on 83-29-3903Ylfsdvh [Mass/Vol]109 mg/iODkym15-363HnigdcmfzFlower HospitalComment on above:ADA recommended reference rangeRandom Glucose Reference [...] recommended reference rangePerformed By: #### CBC, BMP ####[place] [address] [place] [address] USAHematocrit [Volume Fraction] of Blood by Automated countOrdered By: Duke Hector on 03-12-2025 Hematocrit (Bld) [Volume fraction]38.6 %Low38.8-50.0Flower HospitalComment on above:Performed By: #### CBC, BMP ####[address] [address] USAHemoglobin [Mass/volume] in BloodOrdered By: Duke Hector on 66-14-5657Sxgmnjytay (Bld) [Mass/Vol]13.4 g/bPGnopql27.0-17.0Flower HospitalComment on above:Performed By: #### CBC, BMP ####[place] [address] USALeukocytes [#/volume] corrected for nucleated erythrocytes in Blood by Automated counOrdered By: Duke Hector on 88-89-5100FXT corrected for nucl RBC Auto (Bld) [#/Vol]2.4 10*3/uLLow4.1-10.5FGalion Community Hospital Leukocytes [#/volume] in Blood by Automated countOrdered By: Duke Hector on 69-84-7179TQO (Bld) [#/Vol]2.4 10*3/uLLow4.1-10.5FGalion Community HospitalComment on above:Performed By: #### CBC, BMP ####[address] [address] USALymphocytes [#/volume] in Blood by Automated countOrdered By: Duke Hector on 53-95-4157Rnwngvdvshn (Bld) [#/Vol]0.5 10*3/uLLow1.00-4.8Flower HospitalComment on above:Performed By: #### CBC, BMP ####[address] [address] USALymphocytes/100 leukocytes in Blood by Automated countOrdered By: Duke Hector on 42-53-6032Lksptupkktm/100 WBC (Bld)22.3 % Normal.Flower HospitalComment on above:Performed By: #### CBC, BMP ####[address] [address] [facility] MCH [Entitic mass] by Automated countOrdered By: Duke Hector on 39-87-6651MWK (RBC) [Entitic mass]31.2 kyEsgegm20.5-35.2FGalion Community Hospital Comment on above:Performed By: #### CBC, BMP ####[address] [address] [facility] STROUDHC Auto (RBC) [Mass/Vol]Ordered By: Duke Hector on 02-07-9132ZTUI (RBC) [Mass/Vol]34.7 g/dL32.5-35.6FGalion Community HospitalMCV [Entitic volume] by Automated countOrdered By: Duke Hector on 92-71-1290BTK (RBC) [Entitic vol]90.0 uSTnwarh73.5-101 Flower HospitalComment on above:Performed By: #### CBC, BMP ####[address] [address] [place] Monocytes [#/volume] in Blood by Automated countOrdered By: Duke Hector on 08-86-0827Frgwnusyp (Bld) [#/Vol]0.6 10*3/uLNormal0.0-0.8Flower HospitalComment on above:Performed By: #### CBC, BMP ####[place] [address] USAMonocytes/100 leukocytes in Blood by Automated countOrdered By: Duke Hector on 03-12-2025 Monocytes/100 WBC (Bld)23.1 %Normal.Flower HospitalComment on above:Performed By: #### CBC, BMP ####[facility] [place] [address] USANeutrophils [#/volume] in Blood by Automated count Ordered By: Duke Hector on 93-30-4641Vfpeignttmx (Bld) [#/Vol]1.2 10*3/uLLow 1.8-7.7FGalion Community HospitalComment on above:Performed By: #### CBC, BMP ####[place] [address] [place] [address] [place] Neutrophils/100 leukocytes in Blood by Automated countOrdered By: Duke Hector on 53-95-8170Bgfvogocdwy/100 WBC (Bld)47.8 %Normal.Flower HospitalComment on above:Performed By: #### CBC, BMP ####[place] [address] [place] [address] USANo Panel InformationOrdered By: Duke Hector on 54-73-0557Qquyenlzk GFR (CKD-EPI)> 60.0 mL/MinFlower HospitalPharmacy Creatinine Clearance (Chem66.99Flower HospitalNucleated erythrocytes [Presence] in Blood by Automated countOrdered By: Duke Hector on 78-81-3886Nkxlgjhlg RBC Auto Ql (Bld)0.3 /100{WBC}0-0.5FGalion Community HospitalPlatelet mean volume [Entitic volume] in Blood by Automated countOrdered By: Duke Hector on 03-12-2025 Platelet mean volume (Bld) [Entitic vol]7.6 fLNormal6.6-10.1FGalion Community HospitalComment on above:Performed By: #### CBC, BMP ####[place] [address] [place] [address] USAPlatelets [#/volume] in Blood by Automated countOrdered By: Duke Hector on 82-54-2761Zyhhgopiq (Bld) [#/Vol]166 10*3/hZSfofhk918-751CbdrszvdlFlower HospitalComment on above:Performed By: #### CBC, BMP ####[address] [address] USAPotassium [Moles/volume] in Serum or PlasmaOrdered By: Duke Hector on 89-18-2161Ibqcwpwdv [Moles/Vol]4.4 mmol/LNormal3.5-5.1 Flower HospitalComment on above:Performed By: #### CBC, BMP ####[address] [address] USASerum or plasma anion gap determinationOrdered By: Duke Hector on 17-05-2227Akjjq gap [Moles/Vol]11.0 mmol/LNormal6.0-15.0Flower HospitalComment on above:Performed By: #### CBC, BMP ####[address] [address] USASodium [Moles/volume] in Serum or Plasma Ordered By: Duke Hector on 76-68-1007Mqacdm [Moles/Vol]138 mmol/LNormal 136-145Flower HospitalComment on above:Performed By: #### CBC, BMP ####[address] [address] [place] Urea nitrogen [Mass/volume] in Serum or PlasmaOrdered By: Duke Hector on 62-68-0915Dzlx nitrogen [Mass/Vol]22 mg/dLNormal-Flower HospitalComment on above:Performed By: #### CBC, BMP ####[address] [address] USACULTURE, URINE, ROUTINEon 40-88-9730WIPISQT, URINE, ROUTINESEE NOTENormalQuest DiagnosticsComment on above:Result Comment: CULTURE, URINE, ROUTINE Micro Number: [id number] Test Status: Final Specimen Source: Urine Specimen Quality: Adequate Result: No GrowthPerformed By: #### 395 #### [facility] [address], [address] [place] [phone] Comptroller: Gene Liang MDPSA, TOTALon 88-79-4401QSC, TOTAL<0.04Normal< OR = 4.00Quest DiagnosticsComment on above:Result Comment: The total PSA value from this assay system is standardized against the WHO standard. The test result will be approximately 20% lower when compared to the equimolar-standardized total PSA (Starr [place]). Comparison of serial PSA results should be interpreted with this fact in mind. This test was performed using the Siemens chemiluminescent method. Values obtained from different assay methods cannot be used interchangeably. PSA levels, regardless of value, should not be interpreted as absolute evidence of the presence or absence of disease.Performed By: #### 5363 #### [facility] [address], [address] [place] [address] Comptroller: Gene Liang MDUrinalysis macro (dipstick) panel (U)on 06-91-8313Cjljyaxrq, UANegativeNegative - 4(70) +++ mg/dLNOMS HealthcareBlood, UANegativeNegative [...] - 12 mg/dLNOMS HealthcareNOMS Healthcare Office Visiton 04-66-7504Tewgmo-up [id number] Tristin Powell 1940 M Date Provider Department Center 12/18/2024 ELIEZER MIXON [facility] [place] [facility] Family History Problem Relation Age of Onset Coronary artery disease Other Hyperlipidemia Other Hypertension Other Family Status - Relation Status Age at Other Level of Service:15733 CO OFFICE/OUTPATIENT ESTABLISHED LOW MDM 20 [facility] HospitalUS ankle/arm indiceson 25-73-2733LP ankle/arm indicesWooster Community Hospital Vascular [address] [place], [place] [address] Ultrasound Report Signed Patient: Tristin Powell MR#: [id number] : 1940 Acct:[id number] Age/Sex: 84 / M ADM Date: 07/29/24 Loc: [facility] Room: Type: [facility] Attending Dr: Cristian Beaver MD [...] Cristian Beaver M.D.07/29/2024 11:33 AM Dictation Location: [id number] Tech: Viviana Stewart Transcribed By: VICENTE 07/29/24 1133 Dictated By: Cristian Beaver MD 07/29/24 1132 Signed By: 07/29/[address] [place] [address] Physician GroupUS arterial duplex LE LTon 29-78-2429FY arterial duplex LE [facility] [address] [place] [address] Ultrasound Report Signed Patient: Tristin Powell MR#: [id number] : 1940 Acct:[id number] Age/Sex: 84 / M ADM Date: 07/29/24 Loc: [facility] Room: Type: REG CLI Attending Dr: Cristian [...] Cristian Beaver M.D.07/29/2024 11:35 AM Dictation Location: [place] [address] Tech: Gaby Matthew Transcribed By: VICENTE 07/29/24 1135 Dictated By: Cristian Beaver MD 07/29/24 1133 Signed By: 07/29/24 1135[facility] Physician GroupUS carotid doppler BIon 63-35-1218UN carotid doppler [facility] [address] [place] [address] Ultrasound Report Signed Patient: Tristin Powell MR#: [id number] : 1940 Acct:[id number] Age/Sex: 84 / M ADM Date: 07/29/24 Loc: [facility] Room: Type: REG CLI Attending Dr: Cristian [...] Cristian Beaver M.D.07/29/2024 11:31 AM Dictation Location: [place] [address] Tech: Gaby Castro Transcribed By: VICENTE 07/29/24 1131 Dictated By: Cristian Beaver MD 07/29/24 1130 Signed By: 07/29/24 1131[facility] Physician GroupOffice Visiton 47-89-7487Nwfchm- up [id number] Tristin Powell 1940 M Date Provider Department Center 07/22/2024 ELIEZER MIXON [place] Family History Problem Relation Age of Onset Coronary artery disease Other Hyperlipidemia Other Hypertension Other Family Status - Relation Status Age at Other Level of Service:14288 CO OFFICE/OUTPATIENT ESTABLISHED LOW MDM 20 [facility]36on [id number] for patient to return my call.[facility]36on 31-41-352623Srieza let him know his ECHO looked okay. Labs showed some mild elevation in inflammatory labs. Is he still experiencing chest pains? If so, we can try to start him on something short term to help. Thanks!NormalCleveland Clinic Mercy HospitalTelephoneon [id number] Tristin Powell 1940 M Date Provider Department Center 07/17/2024 RUSSEL ADAIR Family History Problem Relation Age of Onset Coronary artery disease Other Hyperlipidemia Other Hypertension Other Family Status - Relation Status Age at OtherNormalUniversDelaware County HospitalALL BASIC METABOLIC PANELon 09-43-8796Nzdrn gap [Moles/Vol]15.1 mmol/LNOMS HealthcareCalcium [Mass/Vol]8.9 mg/dL8.5 - 10.1 mg/dLNOMS HealthcareChloride [Moles/Vol]108 mmol/LHigh98 - 107 mmol/LNOMS HealthcareCO2 [Moles/Vol]27.3 mmol/L21.0 - 32.0 mmol/LNOMS Healthcare Creatinine [Mass/Vol]1.32 mg/dLHigh0.70 - 1.30 mg/dLNOMS HealthcareGFR/1.73 sq M.predicted CKD-EPI (S/P/Bld) [Vol rate/Area]>60>=60 mL/min/1.73m 2NOMS HealthcareGlucose [Mass/Vol]94 mg/dL74 - 106 mg/dLNOMS HealthcareInterpretation and review of laboratory resultsAbnormalJORDAN VALLEY MEDICAL CENTER HealthcarePotassium [Moles/Vol]4.4 mmol/L3.5 - 5.1 mmol/LNOMS HealthcareSodium [Moles/Vol]146 mmol/FAvuy820 - 145 mmol/LNCrossroads Regional Medical CenterTB EGFR-NON AF VZJXNVBL09Qig>=60 mL/min/1.73m 2NOMS HealthcareUrea nitrogen [Mass/Vol]15 mg/dL7.0 - 18.0 mg/dLNOMissouri Rehabilitation CenterUrea nitrogen/Creatinine [Mass ratio]11.4 mg/mgCone Health Alamance Regional CBC WITH AUTO DIFFon 82-07-5212Iufpmwwxxey distribution width (RBC) [Ratio]13.9 %11.0 - 15.0 %NOMS HealthcareHematocrit (Bld) [Volume fraction]40.9 %Low42.0 - 54.0 %NOM HealthcareHemoglobin (Bld) [Mass/Vol]13.9 g/dLLow14.0 - 18.0 g/dLEllett Memorial Hospital (RBC) [Entitic mass]31.1 pg25.9 - 34.0 pgOzarks Medical CenterHC (RBC) [Mass/Vol]34 g/dL29.9 - 35.2 g/dLOzarks Medical CenterV (RBC) [Entitic vol]91.5 fL80.0 - 94.0 fLKansas City VA Medical CenterPlatelet mean volume (Bld) [Entitic vol]9.5 fL9.5 - 13.5 fLWright Memorial Hospital QDU731JUJUMercy hospital springfield RBC4.47LowWright Memorial Hospital WBC3.3LowKansas City VA Medical CenterALL SED RATEon 96-33-0788FYV SED WEGX00XGAVFRYMAtrium HealthMHPT DIFFERENTIALon 30-24-9074ULBBIJRQS ABS QIUPSW6MSST HealthcareBASOPHILS PERCENT MANUAL0 %Low0.2 - 2.0 %NOMS HealthcareEosinophils (Bld) [#/Vol]0.13 10*3/uLNOMS HealthcareEOSINOPHILS PERCENT MANUAL4 %0.9 - 7.0 %NOMS HealthcareLymphocytes (Bld) [#/Vol]0.59 10*3/uLLowNOMS HealthcareLYMPHOCYTES PERCENT GUDNGR02 %Low20.5 - 60.0 %NOMS HealthcareMonocytes (Bld) [#/Vol]0.52 10*3/uLNOMS Healthcare MONOCYTES PERCENT FWYWLF16 %High1.7 - 12.0 %NOMS HealthcareSEGMENTED NEUT ABSOLUTE MANUAL2.04NOMS HealthcareSEGMENTED NEUTROPHILS % TAGQMC0214.0 - 75.0 NOMS HealthcareNo Panel Informationon 43-10-6373Imwtzajezlztas and review of laboratory resultsAbnormalNOMS HealthcareCLINISYNCNOMS HealthcareHPon [...] were addressed and answered. Mabel Pino MD Account Specialist - PGY6 [facility] Tristin Powell is a 84 y.o. year old male patient being seen for 6 mo follow up CAD, PAD, AAA, HTN, and HLD. Had lipid panel Sep, 2023. He is now seeing vascular surgery in [place], Dr. Beaver. Problem List Patient Active Problem List Diagnosis Abdominal pain Chest pain Aortic valve regurgitation Mitral valve regurgitation Avascular necrosis of bone of hip (CMS/HCC) Community acquired pneumonia of left lower lobe of lung Contusion Hematoma of arm, left, initial encounter Coronary artery disease involving coronary bypass graft of [place] heart without angina pectoris Coronary artery disease involving [place] coronary artery of [place] heart without angina pectoris Coronary atherosclerosis Critical [...] instent restenosis. He then underwent CABG at [facility] in 2017 (CHAVEZ to diagonal, SVG [...] ECHO that could be (more content not included)...NormalUnPomerene HospitalNURSNOTEon 67-19-3234MUXPPIBUEmrwm Cole called stating he had a heart cath yesterday and he is having chest pain when he takes a deep breath and when he leans back. Chest pain is not severe. He asked if this was normal. Tia Vallejo CNP was notified. Per Tia Vallejo CNP. Lab orders of CBC, BMP, ESR and CRP. Limited Echo for chest pain R/O pericarditis. Notified [facility] to have echo and labs done at [place]. Called Tristin Powell explaining need for echo and labs. Instructed to go to ER if chest pain worsens.NormalUnPomerene HospitalALL BASIC METABOLIC PANELon 95-24-3336Dareo gap [Moles/Vol]13.4 mmol/LNOMS HealthcareCalcium [Mass/Vol]9.8 mg/dL8.5 - 10.1 mg/dLNOVT HealthcareChloride [Moles/Vol]106 mmol/L 98 - 107 mmol/LNOMS HealthcareCO2 [Moles/Vol]27.4 mmol/L21.0 - 32.0 mmol/LNOMS HealthcareCreatinine [Mass/Vol]1.33 mg/dLHigh0.70 - 1.30 mg/dLNOVT Healthcare GFR/1.73 sq M.predicted CKD-EPI (S/P/Bld) [Vol rate/Area]>60>=60 mL/min/1.73m 2 NOMS HealthcareGlucose [Mass/Vol]110 mg/rCFgaq05 - 106 mg/dLNOVT Healthcare Interpretation and review of laboratory resultsAbnormalNOMS HealthcarePotassium [Moles/Vol]4.8 mmol/L3.5 - 5.1 mmol/LNOMS HealthcareSodium [Moles/Vol]142 mmol/L 136 - 145 mmol/LNOMS HealthcareTBH EGFR-NON AF TDGCOLTV75Krd>=60 mL/min/1.73m 2 NOMS HealthcareUrea nitrogen [Mass/Vol]16 mg/dL7.0 - 18.0 mg/dLNOMS Healthcare Urea nitrogen/Creatinine [Mass ratio]12 mg/mgNOMS HealthcareCLINISYNCNOMS HealthcareOrders Onlyon 73-54-9327Mkcngo [id number] Tristin Powell 1940 Provider Department Center 07/02/2024 Rodney-MAIA YE [facility] VASC LAB ID HeartVAS Family History Problem Relation Age of Onset Coronary artery disease Other Hyperlipidemia Other Hypertension Other Family Status - Relation Status Age at OtherNormalUniversity of Bay[facility] Center – HillcrestOrders Onlyon 81-53-0526Bkczdd [id number] Tristin Powell 1940 Provider Department Center 06/11/2024 RUSSEL ADAIR Family History Problem Relation Age of Onset Coronary artery disease Other Hyperlipidemia Other Hypertension Other Family Status - Relation Status Age at OtherNormalUniverscommunity memorial hospital of [facility]36on 33-09-044791Rulgnb let him know that I discussed our plan with Dr. Juarez, recommend proceeding with cardiac cath given the bump in his heart enzymes recently. We want to make sure nothing significant has changed. This will also help with planning any vascular surgery in the future. Thanks![facility] HospitalTelephoneon [id number] Tristin Powell 1940 Provider Department Center 05/31/2024 RUSSEL ADAIR Family History Problem Relation Age of Onset Coronary artery disease Other Hyperlipidemia Other Hypertension Other Family Status - Relation Status Age at OtherNormalUniSumma HealthOffice Visiton 04-01-0556Ptfmec-up [id number] Tristin Powell 1940 Provider Department Center 05/28/2024 RUSSEL ADAIR Family History Problem Relation Age of Onset Coronary artery disease Other Hyperlipidemia Other Hypertension Other Family Status - Relation Status Age at Other Level of Service:45865 CO OFFICE/OUTPATIENT ESTABLISHED MOD MDM 30 [facility] HospitalALL MAGNESIUMon 60-36-7000Vormvkqxr [Mass/Vol]2.1 mg/dL1.6 - 2.4 mg/dLNOMS HealthcareBasic Metab w/rfx MGon 37-16-9862Lwafc gap [Moles/Vol]10 mmol/LNormal9-16M[facility] Memorial HospitalComment on above:Performed By: #### TROPI, CBC, MG, BMPX #### [address] [place] [address] Courtroom Deputy: Mary Astorga MD #### GLYHGB #### [address] [address] Courtroom Deputy: Kale Orona MDBUN/CRE Walla97Vcrkfk8-85Xpzsg [facility] Comment on above:Performed By: #### TROPI, CBC, MG, BMPX #### [address] [place] [address] Courtroom Deputy: Mary Astorga MD #### GLYHGB #### [address] [id number] Courtroom Deputy: Kale Orona, MDCalcium [Mass/Vol]9.3 mg/dLNormal8.6-10.4[facility] Memorial HospitalComment on above:Performed By: #### TROPI, CBC, MG, BMPX #### [address] [place] [address] Courtroom Deputy: Mary Astorga MD #### GLYHGB #### [address] [id number] Courtroom Deputy: Kale Orona MDChloride [Moles/Vol]106 mmol/BQitwsa65-778FuwgjMccullough-Hyde Memorial HospitalComment on above:Performed By: #### TROPI, CBC, MG, BMPX #### [address] [place] [address] Courtroom Deputy: Mary Astorga MD #### GLYHGB #### [address] [place], [place] [id number] Courtroom Deputy: OJ LanO2 [Moles/Vol]23 mmol/NBzfgvm20-15KgjcuMccullough-Hyde Memorial HospitalComment on above:Performed By: #### TROPI, CBC, MG, BMPX #### [address] [place] [address] Courtroom Deputy: Mary Astorga MD #### GLYHGB #### [address] [place], [place] 1226908 Courtroom Deputy: OJ Lanreatinine [Mass/Vol]1.1 mg/dLNormal0.70-1.20 [facility] HospitalComment on above:Performed By: #### TROPI, CBC, MG, BMPX #### [address] [place] [address] Courtroom Deputy: Mary Astorga MD #### GLYHGB #### [address] [place], [place] [phone] Courtroom Deputy: Kale Orona MDGFR/1.73 sq M.predicted among non-blacks MDRD (S/P/Bld) [Vol rate/Area]65 mL/min/{1.73_m2}Normal>60[facility] Comment on above:Result Comment: These results are [...] By: #### TROPI, CBC, MG, BMPX #### [address] [place] 0694683 Courtroom Deputy: Mary Astorga MD #### GLYHGB #### [place] [id number] Courtroom Deputy: Kale Orona MDGlucose [Mass/Vol]90 mg/bTCwnrae82-01CgtgjHarrison Community HospitalComment on above:Performed By: #### TROPI, CBC, MG, BMPX #### [address] [place] 08[address]683 Courtroom Deputy: Mary Astorga MD #### GLYHGB #### [place] [address] Courtroom Deputy: DARIA Lanotassium [Moles/Vol]4.4 mmol/LNormal3.7-5.3 [facility] Memorial HospitalComment on above:Performed By: #### TROPI, CBC, MG, BMPX #### [address] [place] [phone] Courtroom Deputy: Mary Astorga MD #### GLYHGB #### [place] [address] Courtroom Deputy: JUANITA Lanodium [Moles/Vol]139 mmol/EFewygq481-805IjfnlMccullough-Hyde Memorial HospitalComment on above:Performed By: #### TROPI, CBC, MG, BMPX #### [address] [place] [phone] Courtroom Deputy: Mary Astorga MD #### GLYHGB #### [place] [address] Courtroom Deputy: Kale Orona MDUrea nitrogen [Mass/Vol]18 mg/dLNormal8-23M[facility] Memorial HospitalComment on above:Performed By: #### TROPI, CBC, MG, BMPX #### [address] [place] 0835683 Courtroom Deputy: Mary Astorga MD #### GLYHGB #### [address] [place], [place] 7127608 Courtroom Deputy: Kale Orona MDBrain Natri. Peptideon 87-77-6242Hrtzcerlfah peptide B (Bld) [Mass/Vol]980 pg/mLHigh0-450MerWhite Hospital HospitalComment on above:Performed By: #### LIPR #### [address] [address] Courtroom Deputy: OJ LanBCino 56-79-9119Cqfoapqfybi distribution width (RBC) [Ratio]14.8 %High11.8-14.4MerMilford HospitalComment on above:Performed By: #### TROPI, CBC, MG, BMPX #### [address] [place] 0835683 Courtroom Deputy: Mary Astorga MD #### GLYHGB #### [address] [address] Courtroom Deputy: Kale Orona MDHematocrit (Bld) [Volume fraction]38.8 %Low 40.7-50.3Mer[facility] Bridgeport HospitalComment on above:Performed By: #### TROPI, CBC, MG, BMPX #### [address] [place] 0835683 Courtroom Deputy: Mary Astorga MD #### GLYHGB #### [address] [id number] Courtroom Deputy: Kale Orona MDHemoglobin (Bld) [Mass/Vol]13.2 g/dLNormal 13.0-17.0MerMilford HospitalComment on above:Performed By: #### TROPI, CBC, MG, BMPX #### [address] [place] 0835683 Courtroom Deputy: Mary Astorga MD #### GLYHGB #### [place] [phone] Courtroom Deputy: VINCENT LanCH (RBC) [Entitic mass]30.6 rqEykfns78.2-33.5 [facility] Memorial HospitalComment on above:Performed By: #### TROPI, CBC, MG, BMPX #### [address] [place] 0835683 Courtroom Deputy: Mary Astorga MD #### GLYHGB #### [place] [phone] Courtroom Deputy: KATHY LanC (RBC) [Mass/Vol]34.0 g/hJYxfwcz27.4-34.8 [facility] Memorial HospitalComment on above:Performed By: #### TROPI, CBC, MG, BMPX #### [address] [place] [address]683 Courtroom Deputy: Mary Astorga MD #### GLYHGB #### [place] [address] Courtroom Deputy: VINCENT LanCV (RBC) [Entitic vol]89.8 eHSainzf07.6-102.9 [facility] Memorial HospitalComment on above:Performed By: #### TROPI, CBC, MG, BMPX #### [address] [place] 0835683 Courtroom Deputy: Mary Astorga MD #### GLYHGB #### [place] [phone] Courtroom Deputy: Kale Orona MDNRBC Automated0.0 per 100 WBCNormal0.0[facility] HospitalComment on above:Performed By: #### TROPI, CBC, MG, BMPX #### [address] [place], [place] 6500383 Courtroom Deputy: Mary Astorga MD #### GLYHGB #### [address] [address] Courtroom Deputy: Anthony Lanteandrei mean volume (Bld) [Entitic vol]9.8 fL Normal8.1-13.5[facility] on above:Performed By: #### TROPI, CBC, MG, BMPX #### [address] [place], [place] 5645583 Courtroom Deputy: Mary Astorga MD #### GLYHGB #### [address] [address] Courtroom Deputy: Cindy Lan (Bld) [#/Vol]153 10*3/uFAzeglj504-874 [facility] Memorial HospitalComselect specialty hospital-pontiac on above:Performed By: #### TROPI, CBC, MG, BMPX #### [address] [place], [place] 7411283 Courtroom Deputy: Mary Astorga MD #### GLYHGB #### [address] [address] Courtroom Deputy: JUAN CARLOS LanBC (Bld) [#/Vol]4.32 10*6/uLNormal4.21-5.77 [facility] on above:Performed By: #### TROPI, CBC, MG, BMPX #### [address] [place], [place] 0129783 Courtroom Deputy: Mary Astorga MD #### GLYHGB #### [address] [address] Courtroom Deputy: Kale Orona MDWBC (Bld) [#/Vol]4.0 10*3/uLNormal3.5-11.3[facility] HospitalComment on above:Performed By: #### TROPI, CBC, MG, BMPX #### [facility] [address] [place] [address] Courtroom Deputy: Mary Astorga MD #### GLYHGB #### [facility] [address] [place], [place] [phone] Courtroom Deputy: Kale Orona [facility] TROPONIN Ion 67-76-0796Jkvjfcjvrnivuj and review of laboratory resultsAbnoWVU Medicine Uniontown HospitalPT TROPONIN, HIGH SENS31 ng/LHigh0 - 22 ng/LNOMS HealthcareComment on above:High Sensitivity Troponin values cannot be compared with other Troponin methodologies. [facility] BASIC METABOLIC PANEL REFLEX MGon 70-06-2002Gfmoe gap [Moles/Vol]10 mmol/L9 - 16 mmol/LNOMS HealthcareCalcium [Mass/Vol]9.3 mg/dL8.6 - 10.4 mg/dLNOVT HealthcareChloride [Moles/Vol]106 mmol/L98 - 107 mmol/LNOMS HealthcareCO2 [Moles/Vol]23 mmol/L20 - 31 mmol/LNOMS HealthcareCreatinine [Mass/Vol]1.1 mg/dL 0.70 - 1.20 mg/dLNOVT HealthcareGlucose [Mass/Vol]90 mg/dL74 - 99 mg/dLNOThree Rivers HealthcarePT BUN/CRE [id number] - 20NOThree Rivers HealthcarePT EGFR65- PINFJORDAN VALLEY MEDICAL CENTER HealthcareComment on above: These results are not [...] mmol/LNOMS HealthcareUrea nitrogen [Mass/Vol]18 mg/dL8 - 23 mg/dLNOVT HealthcareHemoglobin A1Con 93-39-1755Sqstkna [Mass/Vol]117 mg/dLNormal [facility] HospitalComment on above:Result Comment: The ADA and AACC recommend providing the estimated average glucose result to permit better patient understanding of their HBA1c result.Performed By: #### TROPI, CBC, MG, BMPX #### [address] [place] [address] Courtroom Deputy: Mary Astorga MD #### GLYHGB #### [address] [address] Courtroom Deputy: Kale Orona MDHbA1c (Bld) [Mass fraction]5.7 %Normal4.0-6.0 [facility] Memorial HospitalComment on above:Performed By: #### TROPI, CBC, MG, BMPX #### [address] [place] [address] Courtroom Deputy: Mary Astorga MD #### GLYHGB #### [address] [address] Courtroom Deputy: Kale Orona MDLipid Profileon 14-37-9905Irosqkmljah [Mass/Vol] 131 mg/dLNormal0-199M[facility] Memorial HospitalComment on above:Result Comment: Cholesterol Guidelines: <200 Desirable 200-240 Borderline >240 UndesirablePerformed By: #### LIPR #### [address] [address] Courtroom Deputy: Kale Orona MDCholesterol in HDL [Mass/Vol]41 mg/dLNormal>40 [facility] HospitalComment on above:Result Comment: HDL Guidelines: <40 Undesirable 40-59 Borderline >59 DesirablePerformed By: #### LIPR #### [address] [address] Courtroom Deputy: OJ Lanholesterol in LDL [Mass/Vol]73 mg/dLNormal0-100 [facility] HospitalComment on above:Result Comment: LDL Guidelines: <100 Desirable 100-129 Near to/above Desirable 130-159 Borderline >159 Undesirable Direct (measured) LDL and calculated LDL are not interchangeable tests.Performed By: #### LIPR #### [address] [address] Courtroom Deputy: OJ Lanholesterol in VLDL [Mass/Vol]17 mg/dLNormal [facility] Memorial HospitalComment on above:Performed By: #### LIPR #### [address] [address] Courtroom Deputy: Bebeto Lanstjohann.total/Cholesterol in HDL [Mass ratio]3.0 {ratio}NormalMccullough-Hyde Memorial HospitalComment on above:Performed By: #### LIPR #### [address] [address] Courtroom Deputy: Kale Orona MDTriglyceride [Mass/Vol]85 mg/dLNormal<150M[facility]de Memorial HospitalComment on above:Result Comment: Triglyceride Guidelines: <150 Desirable 150-199 Borderline 200-499 High >499 Very high Based on AHA Guidelines for fasting triglyceride, May 2012.Performed By: #### LIPR #### [address] [address] Courtroom Deputy: Julio Cesar Langnesiumon 58-54-1648Hhhizhzmj [Mass/Vol]2.1 mg/dLNormal1.6-2.4[facility] Memorial HospitalComment on above:Performed By: #### TROPI, CBC, MG, BMPX #### [facility] [address] [place] [address] Courtroom Deputy: Mary Astorga MD #### GLYHGB #### [address] [address] Courtroom Deputy: Kael Orona MDNo Panel Informationon 41-38-4979Lcwfackl Ordering Provider: RAFAELA Ontiveros CNP HOMANCCox SouthTroponinon 64-73-4368Uqbazrpn, High Sens28 ng/LHunited hospital center0-[facility] Memorial HospitalComment on above:Result Comment: High Sensitivity Troponin values cannot be compared with other Troponin methodologies.Performed By: #### LIPR #### [address] [place], [place] 1569408 Courtroom Deputy: Mayur Lan, High Sens31 ng/[facility]0-[facility] Memorial HospitalComment on above:Result Comment: High Sensitivity Troponin values cannot be compared with other Troponin methodologies.Performed By: #### TROPI, CBC, MG, BMPX #### [address] [place] [address] Courtroom Deputy: Mary Astorga MD #### GLYHGB #### [address] [place], [place] 9751408 Courtroom Deputy: KALPESH Lan PROTIME/INRon 56-73-9880Sgcgvjamglgkro and review of laboratory resultsChristiana HospitalPT INR1.2NCrossroads Regional Medical Center Comment on above: Therapeutic Range: Moderate Anticoagulant Intensity: INR = 2.0-3.0 High Anticoagulant Intensity: INR = 2.5-3.5 MHPT PROTHROMBIN TIME14.8HGundersen St Joseph's Hospital and ClinicsOriginal Ordering Provider: RAFAELA Ontiveros CNP [facility] Health ServicesBasic Metab w/rfx MGon 03-76-5536Vbyck gap [Moles/Vol]11 mmol/LNormalMccullough-Hyde Memorial HospitalComment on above:Performed By: #### BMPX, PT, CBC #### [address] [place] [address] Courtroom Deputy: Mary Astorga MDBUJose/CRE Udvgo33Wwujwg1-[address] Comment on above:Performed By: #### BMPX, PT, CBC #### [address] [place] [address] Courtroom Deputy: OJ Markalcium [Mass/Vol]9.5 mg/dLNormal8.6-10.4[facility] Memorial HospitalComment on above:Performed By: #### BMPX, PT, CBC #### [facility] [address] [place], [place] 3167283 Courtroom Deputy: OJ Markhloride [Moles/Vol]105 mmol/XWvpvec24-769CldctMccullough-Hyde Memorial HospitalComment on above:Performed By: #### BMPX, PT, CBC #### [facility] [address] [place], [place] 956[address]83 Courtroom Deputy: Mary Astorga MDCO2 [Moles/Vol]23 mmol/ZXdtbsw58-73NgxjyMccullough-Hyde Memorial HospitalComment on above:Performed By: #### BMPX, PT, CBC #### [facility] [address] [place], [facility] Courtroom Deputy: OJ Markreatinine [Mass/Vol]1.0 mg/dLNormal0.70-1.20[facility] HospitalComment on above:Performed By: #### BMPX, PT, CBC #### [address] [place] [address] Courtroom Deputy: Mary Astorga MDGFR/1.73 sq M.predicted among non-blacks MDRD (S/P/Bld) [Vol rate/Area]73 mL/min/{1.73_m2}Normal>60[facility] Comment on above:Result Comment: These results are [...] secretion.Performed By: #### BMPX, PT, CBC #### [address] [place], [place] 8589483 Courtroom Deputy: Mary Astorga MDGlucose [Mass/Vol]96 mg/bUNtprts47-66Uocym [facility] HospitalComment on above:Performed By: #### BMPX, PT, CBC #### [address] [place], [place] 1363483 Courtroom Deputy: DARIA Markotassium [Moles/Vol]4.2 mmol/LNormal3.7-5.3Mer[facility] HospitalComment on above:Performed By: #### BMPX, PT, CBC #### [address] [place], [place] 4583983 Courtroom Deputy: JUANITA Markodium [Moles/Vol]139 mmol/GNzavkm851-823Bcvje [facility] HospitalComment on above:Performed By: #### BMPX, PT, CBC #### [address] [place], [place] 7418483 Courtroom Deputy: Mary Astorga MDUrea nitrogen [Mass/Vol]16 mg/dLNormal8-23MerWhite Hospital HospitalComment on above:Performed By: #### BMPX, PT, CBC #### [address] [place], [place] 7301683 Courtroom Deputy: Jace Mark 84-16-9873Xlqcojigipn distribution width (RBC) [Ratio]14.7 %High11.8-14.4[facility] HospitalComment on above:Performed By: #### LIPR #### [address] [place] [address] Courtroom Deputy: Kale Orona MDHematocrit (Bld) [Volume fraction]40.3 %Low 40.7-50.3[facility] HospitalComment on above:Performed By: #### LIPR #### [address] [place] [address] Courtroom Deputy: Kale Orona MDHemoglobin (Bld) [Mass/Vol]13.9 g/dLNormal 13.0-17.0[facility] HospitalComment on above:Performed By: #### LIPR #### [address] [address] Courtroom Deputy: VINCENT LanCH (RBC) [Entitic mass]31.0 rjRclbyw95.2-33.5 [facility] HospitalComment on above:Performed By: #### LIPR #### [place] [address] Courtroom Deputy: VINCENT LanCHC (RBC) [Mass/Vol]34.5 g/fPFbrpaq37.4-34.8 [facility] HospitalComment on above:Performed By: #### LIPR #### [place] [address] Courtroom Deputy: VINCENT LanCV (RBC) [Entitic vol]89.8 fWPswxde38.6-102.9 [facility] HospitalComment on above:Performed By: #### LIPR #### [place] [address] Courtroom Deputy: Kale Orona MDNRBC Automated0.0 per 100 WBCNormal0.0[facility] Memorial HospitalComment on above:Performed By: #### LIPR #### [place] [address] Courtroom Deputy: DARIA Lanlatelet mean volume (Bld) [Entitic vol]9.8 fL Normal8.1-13.5[facility] Memorial HospitalComment on above:Performed By: #### LIPR #### [place] [address] Courtroom Deputy: DARIA Lanlatelets (Bld) [#/Vol]154 10*3/jXZuaqpb477-753 [facility] HospitalComment on above:Performed By: #### LIPR #### [address] [place] [address] Courtroom Deputy: TIA Lan ([facility]) [#/Vol]4.49 10*6/uLNormal4.21-5.77 [facility] HospitalComment on above:Performed By: #### LIPR #### [address] [address] Courtroom Deputy: JUSTIN Lan ([facility]) [#/Vol]4.0 10*3/uLNormal3.5-11.3MGenesis Hospital HospitalComment on above:Performed By: #### LIPR #### [address] [address] Courtroom Deputy: Pablo Lan 83-47-1207BJG Coag (PPP) [Relative time]1.2 {INR}NormalMccullough-Hyde Memorial HospitalComment on above:Result Comment: Therapeutic Range: Moderate Anticoagulant Intensity: INR = 2.0-3.0 High Anticoagulant Intensity: INR = 2.5-3.5Performed By: #### BMPX, PT, CBC #### [address] [place] [address] Courtroom Deputy: OLIVE Mark Coag (PPP) [Time]14.8 sHigh11.7-14.1MKettering Health Dayton on above:Performed By: #### BMPX, PT, CBC #### [address] [place] [address] Courtroom Deputy: Andrew Mark 94-31-3079Mhhtvfay, Sens26 ng/L High0-22[facility] on above:Result Comment: High Sensitivity Troponin values cannot be compared with other Troponin methodologies.Performed By: #### TROPI #### [facility] [address] [place], [place] 1075483 Courtroom Deputy: Mary Astorga MDBrain Natri. Peptideon 91-56-3477Xhvtmhtrqta peptide B (Bld) [Mass/Vol]729 pg/mLHigh0-450MerWhite Hospital HospitalComment on above:Performed By: #### LIPR #### [address] [address] Courtroom Deputy: TOM Lan with Diffon 02-05-3155Rwq. Basophil0.03 k/uL Normal0.00-0.20[facility] HospitalComment on above:Performed By: #### LIPR #### [address] [address] Courtroom Deputy: MDAbs. RikyImm.Granulocyte<0.53Xbnvkd9.00-0.30MerWhite Hospital HospitalComment on above:Performed By: #### LIPR #### [address] [address] Courtroom Deputy: Anup Lan.Neutrophil (Seg)2.22 k/uLNormal1.50-8.10 [facility] HospitalComment on above:Performed By: #### LIPR #### [address] [address] Courtroom Deputy: Kale Orona MDBasophils/100 WBC (Bld)1 %Normal0-2[facility] HospitalComment on above:Performed By: #### LIPR #### [address] [address] Courtroom Deputy: Kale Orona MDEosinophils (Bld) [#/Vol]0.11 10*3/uLNormal 0.00-0.44MerWhite Hospital HospitalComment on above:Performed By: #### LIPR #### [address] [id number] Courtroom Deputy: Kale Orona MDEosinophils/100 WBC (Bld)3 %Normal1-4[facility] HospitalComment on above:Performed By: #### LIPR #### [address] [address] Courtroom Deputy: Kale Orona MDErythrocyte distribution width (RBC) [Ratio]14.7 %High11.8-14.4[facility] HospitalComment on above:Performed By: #### LIPR #### [place] [address] Courtroom Deputy: Kale rOona MDHematocrit (Bld) [Volume fraction]38.8 %Low 40.7-50.3[facility] HospitalComment on above:Performed By: #### LIPR #### [place] [address] Courtroom Deputy: Kale Orona MDHemoglobin (Bld) [Mass/Vol]13.3 g/dLNormal 13.0-17.0[facility] Hospitalcy [facility]ont HospitalComment on above:Performed By: #### LIPR #### [place] [address] Courtroom Deputy: Kale Orona MDImmature granulocytes/100 WBC (Bld)1 %Bbqw2Fprrn Tiffin HospitalComment on above:Performed By: #### LIPR #### [place] [address] Courtroom Deputy: Kale Orona MDLymphocytes (Bld) [#/Vol]0.61 10*3/uLLow 1.10-3.70Mercy Tremont HospitalComment on above:Performed By: #### LIPR #### [place] [address] Courtroom Deputy: Ramon Lanmphocytes/100 WBC (Bld)17 %Tzl45-57Aotas [facility]remont HospitalComment on above:Performed By: #### LIPR #### [facility] [employer] [address] [place] [address] Courtroom Deputy: VINCENT LanCH (RBC) [Entitic mass]31.0 dpGqarpg49.2-33.5 [facility] HospitalComment on above:Performed By: #### LIPR #### [facility] [employer] [address] [place] [address] Courtroom Deputy: VINCENT LanCHC (RBC) [Mass/Vol]34.3 g/hIYloulx65.4-34.8 [facility] HospitalComment on above:Performed By: #### LIPR #### [address] [address] Courtroom Deputy: VINCENT LanCV (RBC) [Entitic vol]90.4 kCKerxoz33.6-102.9 [facility] HospitalComment on above:Performed By: #### LIPR #### [address] [address] Courtroom Deputy: VINCENT Lanonocytes (Bld) [#/Vol]0.59 10*3/uLNormal 0.10-1.20[facility] HospitalComment on above:Performed By: #### LIPR #### [address] [address] Courtroom Deputy: VINCENT Lanonocytes/100 WBC (Bld)17 %High3-12[facility] HospitalComment on above:Performed By: #### LIPR #### [facility] [employer] [address] [place] [address] Courtroom Deputy: Aleyda Lanophil (Seg)61 %Aibixe65-19Rsaln Tiffin HospitalComment on above:Performed By: #### LIPR #### [facility] [employer] [address] [place] [address] Courtroom Deputy: Kale Orona MDNRBC Automated0.0 per 100 WBCNormal0.0[facility] HospitalComment on above:Performed By: #### LIPR #### [facility] [employer] [address] [place] [address] Courtroom Deputy: DARIA Lanlatelet mean volume (Bld) [Entitic vol]9.3 fL Normal8.1-13.5[facility] HospitalComment on above:Performed By: #### LIPR #### [facility] [address] [place] [address] Courtroom Deputy: DARIA Lanlatelets (Bld) [#/Vol]153 10*3/mIPrxefp544-333 [facility] HospitalComment on above:Performed By: #### LIPR #### [address] [address] Courtroom Deputy: Kale Orona MDRBC (Bld) [#/Vol]4.29 10*6/uLNormal4.21-5.77 [facility] HospitalComment on above:Performed By: #### LIPR #### [facility] [employer] [address] [place] [address] Courtroom Deputy: Kale Orona MDWBC (Bld) [#/Vol]3.6 10*3/uLNormal3.5-11.3MHarrison Community HospitalComment on above:Performed By: #### LIPR #### [facility] [employer] [address] [place] [address] Courtroom Deputy: Kale Orona MDCTA CHEST ABDOMEN PELVIS W [...] by: Randall Almaraz MD 05/12/24 Final resultNormalMercy [facility] Metabolic Profon 84-64-7369Xwdyrab [Mass/Vol]3.8 g/dLNormal3.5-5.2MGenesis Hospital HospitalComment on above:Performed By: #### LIPR #### [facility] [address] [place] [address] Courtroom Deputy: Kale Orona MDAlbumin/Glob Ratio1.1Wlbcxq8.0-2.5[facility] HospitalComment on above:Performed By: #### LIPR #### [address] [address] Courtroom Deputy: Kale Orona MDAlkaline Phos92 U/UPpzzzk55-920Iuava [facility]iffin HospitalComment on above:Performed By: #### LIPR #### [address] [address] Courtroom Deputy: Kale Orona MDALT [Catalytic activity/Vol]15 U/RWkwowb41-37 [facility] HospitalComment on above:Performed By: #### LIPR #### [address] [address] Courtroom Deputy: Kale Orona MDAnion gap [Moles/Vol]11 mmol/LNormal9-16[facility] HospitalComment on above:Performed By: #### LIPR #### [facility] [employer] [address] [place] [address] Courtroom Deputy: Kale Orona MDAST [Catalytic activity/Vol]24 U/ZKdznke16-30 [facility] HospitalComment on above:Performed By: #### LIPR #### [facility] [employer] [address] [place] [address] Courtroom Deputy: Kale Orona MDBilirubin [Mass/Vol]0.6 mg/dLNormal0.00-1.20 [facility] HospitalComment on above:Performed By: #### LIPR #### [facility] [employer] [address] [place] [address] Courtroom Deputy: Kale Orona MDBUN/CRE Ksggc68Uxwxqg3-37Idocy [facility] Comment on above:Performed By: #### LIPR #### [facility] [place] [address] Courtroom Deputy: OJ Lanalcium [Mass/Vol]9.2 mg/dLNormal8.6-10.4[facility] HospitalComment on above:Performed By: #### LIPR #### [place] [address] Courtroom Deputy: Kale Orona MDChloride [Moles/Vol]106 mmol/XVuzbfi69-789EusikMccullough-Hyde Memorial HospitalComment on above:Performed By: #### LIPR #### [facility] [employer] [address] [place] [address] Courtroom Deputy: Kale Orona MDCO2 [Moles/Vol]22 mmol/RWpovux54-17NhflsMccullough-Hyde Memorial HospitalComment on above:Performed By: #### LIPR #### [facility] [employer] [address] [place] [address] Courtroom Deputy: OJ Lanreatinine [Mass/Vol]1.1 mg/dLNormal0.70-1.20 [facility] HospitalComment on above:Performed By: #### LIPR #### [address] [address] Courtroom Deputy: Kale Orona MDGFR/1.73 sq M.predicted among non-blacks MDRD (S/P/Bld) [Vol rate/Area]69 mL/min/{1.73_m2}Normal>60[facility] Comment on above:Result Comment: These results are [...] renal tubular secretion.Performed By: #### LIPR #### [facility] [employer] [address] [place] [address] Courtroom Deputy: Kale Orona MDGlucose [Mass/Vol]127 mg/qNIrvc37-59Rtkgj Tiffin HospitalComment on above:Performed By: #### LIPR #### [facility] [employer] [address] [place] [address] Courtroom Deputy: Kale Orona, MDPotassium [Moles/Vol]4.6 mmol/LNormal3.7-5.3 [facility] HospitalComment on above:Performed By: #### LIPR #### [facility] [employer] [address] [place] [address] Courtroom Deputy: Kale Orona MDProtein [Mass/Vol]6.3 g/dLLow6.6-8.7[facility] HospitalComment on above:Performed By: #### LIPR #### [address] [address] Courtroom Deputy: Kale Orona MDSodium [Moles/Vol]139 mmol/GGxqhor544-017Ujtya [facility]iffin HospitalComment on above:Performed By: #### LIPR #### [facility] [employer] [address] [place] [address] Courtroom Deputy: Kale Orona MDUrea nitrogen [Mass/Vol]19 mg/dLNormal8-23[facility] HospitalComment on above:Performed By: #### LIPR #### [facility] [employer] [address] [place] [address] Courtroom Deputy: Kale Orona MDTroponinon 12-48-8777Gsjbatsy, High Sens25 ng/L High0-22[facility] HospitalComment on above:Result Comment: High Sensitivity Troponin values cannot be compared with other Troponin methodologies.Performed By: #### LIPR #### [facility] [employer] [address] [place] [address] Courtroom Deputy: Mayur Lan, High Sens26 ng/LHigh0-22[facility] Memorial HospitalComment on above:Result Comment: High Sensitivity Troponin values cannot be compared with other Troponin methodologies.Performed By: #### LIPR #### [employer] [address] [place] [address] Courtroom Deputy: ADRIAN Lan CHEST PORTABLEon 09-01-8839JH CHEST PORTABLE EXAMINATION: ONE XRAY VIEW OF [...] Signed by: Elyssa Pino MD 05/12/24 Final resultNormalMccullough-Hyde Memorial HospitalOffice Visiton 67-64-1715Zirxez-up visit [id number] Tristin Powell 1940 M Date Provider Department Center 04/24/2024 RUS[facility] Family History Problem Relation Age of Onset Coronary artery disease Other Hyperlipidemia Other Hypertension Other Family Status - Relation Status Age at Other Level of Service:24977 CO OFFICE/OUTPATIENT ESTABLISHED MOD [facility] [address] 93-54-3641Jfveyyc [id number]#1.00TIFFLancaster Municipal HospitalPatient Educationon 49-04-4634Eslerot EducationOncology Prostate Cancer The prostate is a [...] under a microscope. This is called the Rhine score and the total score can range from 6?10, indicating how likely it is that the cancer will spread (metastasize) to other parts of the body. The higher the score, the greater thelikelihood that the cancer will spread. ? Aleksandr 6 or lower: This indicates that the cancer cells look similar to normal prostate cells (well differentiated). ? Rhine 7: This indicates that the cancer cells look somewhat similar to normal prostate cells (moderately differentiated). ? Rhine 8, 9, or 10: This indicates that [...] gland. Like external be (more content not included)...[facility] HospitalProvider Letteron 12-26-2023 Provider Letter FLASH LOVELACE, [address] [place] [address] Re: TRISTIN POWELL Date of : [address] ALBANIA DIAZ, TRISTIN ALEMAN was evaluated at [facility] 12/26/2023 13:00:00 As this patient [...] Thanks! Provider Signature: Brenna Mosquera PA-C Physician Lap Grinder [facility] [address] [place] [address] [facility] HospitalUrology Office/Clinic Note on 55-92-4907Qydkgyf Office/Clinic NoteChief Complaint 1yr PSA HPI Staff [...] E&M of Est. Patient Low 20-29 Min 21858 Urnls Dip Stick Auto w/o Microscopy POC 17308 2. BPH with urinary obstruction (N40.1: Benign prostatic hyperplasia with lower urinary tract symptoms) IPSS 7 (5) QOL 1 Pt is currently taking no bladder/prostate medication and is highly satisfied with overall symptom control. No indication for treatment at this time. Continue to monitor. Ordered: Complex E&M Add on G2211 E&M of Est. Patient Low 20-29 Min 06877 3. Erectile dysfunction (N52.9: Male erectile dysfunction, unspecified) last ov: pt requesting sildenafil 100mg. was on it previously through another provider and worked well. 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 advised him to contact his transition teacher and if they clear him then call us and I will prescribe it. today: pt never called after last ov. no concerns reported today. does not wish to pursue Sildenafil at this time. Ordered: Complex E&M Add on G2211 E&M of Est. Patient Low 20-29 Min 84441 Other obstructive and reflux uropathy (N13.8: Other obstructive and reflux uropathy) Offered continued scheduled follow up with our clinic vs following up PRN. Pt prefers the latter. We will ensure PCP continues to order annual PSA. Letter sent. Follow-up With When Contact Information JAY CARRANZA, BRENNA Bazan, URL Only if needed [address] [place] [address] Business (1) Additional Instructions: Patient [...] influenza virus vaccine, i (more content not included)...NormalSelect Medical Trihealth Rehabilitation HospitalComment on above:Result Comment: Electronically Signed By: BRENNA MOSQUERA PA-C\.br\Date and Time Signed: 12/25/2412:33 EDTLab Reportson 86-88-1814Unx [id number]#1.00TIFFNormal [facility] Rehabilitation HospitalAlanine aminotransferase [Enzymatic activity/volume] in Serum or PlasmaOrdered By: Eliezer Juarez on 24-95-0055NGY [Catalytic activity/Vol]15 U/L7-52F[facility] HospitalAlbumin [Mass/volume] in Serum or Plasma by Bromocresol green (BCG) dye binding methoOrdered By: Eliezer Juarez on 25-69-9680Yzmcegt BCG dye [Mass/Vol]4.0 g/dL3.5-5.7FGalion Community HospitalAlkaline phosphatase [Enzymatic activity/volume] in Serum or PlasmaOrdered By: Eliezer Juarez on 52-59-6421DCW [Catalytic activity/Vol] 72 U/Z32-819OkospipcmFlower HospitalAspartate aminotransferase [Enzymatic activity/volume] in Serum or PlasmaOrdered By: Eliezer Juarez on 06-86-7834PJE [Catalytic activity/Vol]21 U/V91-47MfdqvddmvFlower HospitalBasophils Auto (Bld) [#/Vol]Ordered By: Eliezer Juarez on 10-17-2023 Basophils (Bld) [#/Vol]0.0 10*3/uL0.0-0.2FGalion Community Hospital Basophils/100 WBC Auto (Bld)Ordered By: Eliezer Juarez on 10-17-2023 Basophils/100 WBC (Bld)0.7 %.Flower HospitalBilirubin.total [Mass/volume] in Serum or PlasmaOrdered By: Eliezer Juarez on 10-17-2023 Bilirubin [Mass/Vol]0.7 mg/dL0.3-1.0Flower HospitalCalcium [Mass/volume] in Serum or PlasmaOrdered By: Eliezer Juarez on 10-17-2023 Calcium [Mass/Vol]9.4 mg/dL8.6-10.3FGalion Community HospitalCarbon dioxide, total [Moles/volume] in Serum or PlasmaOrdered By: Eliezer Juarez on 01-58-7442QP5 [Moles/Vol]24.6 mmol/L21.0-31.0[facility] Chloride [Moles/volume] in Serum or PlasmaOrdered By: Eliezer Juarez on 37-48-7933Zxfkerci [Moles/Vol]108 mmol/D54-493AldegtpoaFlower Hospital Cholesterol [Mass/volume] in Serum or PlasmaOrdered By: Eliezer Juarez on 46-51-5322Sayrehcmqje [Mass/Vol]142 mg/aY469-035IfbcmlszsFlower HospitalComment on above:Chol less than 200 mg/dl low riskChol 201-239 mg/dl borderline riskChol 240 mg/dl and greater high riskCholesterol in LDL Calc [Mass/Vol]Ordered By: Eliezer Juarez on 79-13-5044Agtdccaqhps in LDL [Mass/Vol]79 mg/dL0-100Flower HospitalComment on above:LDL ATP III CLASSIFICATIONLDL less than 100 mg/dL OptimalLDL 100-129 mg/dL Near or above exfvynvADI509-433 mg/dL Borderline highLDL 160-189 mg/dL HighLDL greater than 189 mg/dL Very highCholesterol in VLDL Calc [Mass/Vol]Ordered By: Eliezer Juarez on 33-44-1060Hsyqkbypdgj in VLDL [Mass/Vol]21 mg/dLFlower HospitalCreatinine [Mass/volume] in Serum or PlasmaOrdered By: Eliezer Juarez on 69-03-3792Zfoixlstvs [Mass/Vol]1.01 mg/dL0.70-1.30Flower HospitalEosinophils Auto (Bld) [#/Vol]Ordered By: Eliezer Juarez on 46-69-8510Hbkaccrazht (Bld) [#/Vol]0.1 10*3/uL0.0-0.45Flower HospitalEosinophils/100 WBC Auto (Bld)Ordered By: Eliezer Juarez on 70-14-7171Jsbulbasyzg/100 WBC (Bld)3.4 %.Flower HospitalErythrocyte distribution width Auto (RBC) [Ratio]Ordered By: Eliezer Juarez on 79-36-3686Yvkofyofpdw distribution width (RBC) [Ratio]14.4 % 12.0-14.8Flower HospitalGlobulin Calc (S) [Mass/Vol]Ordered By: Eliezer Juarez on 48-31-9710Cckcpaap (S) [Mass/Vol]2.6 g/dLFlower HospitalGlucose [Mass/volume] in Serum or PlasmaOrdered By: Eliezer Juarez on 03-73-0997Vxxhlrv [Mass/Vol]82 mg/fX01-808ZfqwgogylFlower HospitalComment on above:ADA recommended reference rangeRandom Glucose Reference Range is dependent on time and content of last meal. Glucose of more than 200 mg/dL in a nonstressed, ambulatory subject supports the diagnosisof Diabetes Mellitus.Hematocrit Auto (Bld) [Volume fraction]Ordered By: Eliezer Juarez on 05-64-9499Txtsbwsmbu (Bld) [Volume fraction]39.3 %38.8-50.0 F[facility] HospitalHemoglobin [Mass/volume] in BloodOrdered By: Eliezer Juarez on 97-26-9124Hjhbkohssd (Bld) [Mass/Vol]13.5 g/dL13.0-17.0 F[facility] HospitalLeukocytes [#/volume] corrected for nucleated erythrocytes in Blood by Automated counOrdered By: Eliezer Juarez on 29-26-1752GLJ corrected for nucl RBC Auto (Bld) [#/Vol]3.5 10*3/uL4.1-10.5 Flower HospitalLymphocytes Auto (Bld) [#/Vol]Ordered By: Eliezer Juarez on 16-90-6011Oblqbsohtxz (Bld) [#/Vol]0.8 10*3/uL1.00-4.8 Flower HospitalLymphocytes/100 WBC Auto (Bld)Ordered By: Eliezer Juarez on 43-85-5990Jeaxbydvgcz/100 WBC (Bld)22.4 %.[facility] HospitalH Auto (RBC) [Entitic mass]Ordered By: Eliezer Juarez on 89-39-7158AGD (RBC) [Entitic mass]30.9 pg27.5-35.2FGalion Community HospitalMCHC Auto (RBC) [Mass/Vol]Ordered By: Eliezer Juarez on 84-70-5569FHAW (RBC) [Mass/Vol]34.3 g/dL32.5-35.6FGalion Community HospitalMCV Auto (RBC) [Entitic vol]Ordered By: Eliezer Juarez on 42-46-0137ABW (RBC) [Entitic vol]90.1 fL83.5-101Flower HospitalMonocytes Auto (Bld) [#/Vol] Ordered By: Eliezer Juarez on 76-20-0521Oahygjwto (Bld) [#/Vol]0.6 10*3/uL 0.0-0.8Flower HospitalMonocytes/100 WBC Auto (Bld)Ordered By: Eliezer Juarez on 77-79-5340Iuttptief/100 WBC (Bld)15.8 %.Flower HospitalNeutrophils Auto (Bld) [#/Vol]Ordered By: Eliezer Juarez on 21-12-2950Zqkzylxboic (Bld) [#/Vol]2.0 10*3/uL1.8-7.7FGalion Community HospitalNeutrophils/100 WBC Auto (Bld)Ordered By: Eliezer Juarez on 10-17-2023 Neutrophils/100 WBC (Bld)57.7 %.Flower HospitalNo Panel InformationOrdered By: Eliezer Juaerz on 86-20-1039Qpkxulvxe GFR (CKD-EPI)> 60.0 mL/MinFlower HospitalPharmacy Creatinine Clearance (Chem N/AFGalion Community HospitalNucleated erythrocytes [Presence] in Blood by Automated countOrdered By: Eliezer Juarez on 02-97-2095Dexzuqkpy RBC Auto Ql (Bld)0.4 /100{WBC}0-0.5FGalion Community HospitalPlatelet mean volume Auto (Bld) [Entitic vol]Ordered By: Eliezer Juarez on 68-82-5071Nepewixx mean volume (Bld) [Entitic vol]7.8 fL6.6-10.1FGalion Community Hospital Platelets Auto (Bld) [#/Vol]Ordered By: Eliezer Juarez on 68-06-1701Ihpfbrkvt (Bld) [#/Vol]170 10*3/oK003-880WnhhyohbtFlower HospitalPotassium [Moles/volume] in Serum or PlasmaOrdered By: Eliezer Juarez on 10-17-2023 Potassium [Moles/Vol]4.7 mmol/L3.5-5.1FGalion Community HospitalProtein [Mass/volume] in Serum or PlasmaOrdered By: Eliezer Juarez on 10-17-2023 Protein [Mass/Vol]6.6 g/dL6.4-8.9Flower HospitalRBC Auto (Bld) [#/Vol]Ordered By: Eliezer Juarez on 85-37-2157AFL (Bld) [#/Vol]4.36 10*6/uL 3.90-5.60[facility]ittman Medical Centererum or plasma albumin/globulin mass ratioOrdered By: Eliezer Juarez on 17-17-6930Edcaqdu/Globulin [Mass ratio]1.5 {ratio}[facility]itt[facility] Medical Centererum or plasma anion gap determination Ordered By: Eliezer Juarez on 69-42-3899Wtfkq gap [Moles/Vol]11.1 mmol/L 6.0-15.0[facility]itt[facility] Medical Centererum or plasma high density lipoprotein (HDL) cholesterol measurementOrdered By: Eliezer Juarez on 12-12-4637Ggorhvpdbwa in HDL [Mass/Vol]42 mg/hE25-28ZrjisjnjeFlower HospitalComment on above:HDL CHOL ATP-III CLASSIFICATION Cardiovascular RiskHDL > or equal to 60 mg/dL LOWHDL < 40 mg/dL HIGHSerum or plasma total cholesterol/high density lipoprotein (HDL) cholesterol mass ratOrdered By: Eliezer Juarez on 00-08-9526Ygablzgfwxv.total/Cholesterol in HDL [Mass ratio] 3.4 {ratio}<5.0[facility] Medical Centerodium [Moles/volume] in Serum or PlasmaOrdered By: Eliezer Juarez on 13-73-9710Pkysbl [Moles/Vol]139 mmol/L 136-145Flower HospitalTriglyceride [Mass/volume] in Serum or PlasmaOrdered By: Eliezer Juarez on 63-34-4814Fcagrfdrrwdg [Mass/Vol]105 mg/dL 0-149Flower HospitalComment on above:TRIG ATP III CLASSIFICATIONTRIG less than 150 mg/dL NormalTRIG 150-199 mg/dL Borderline highTRIG 200-500 mg/dL High TRIG greater than 500 mg/dL Very highStandard traceable to the Center for Disease Conrtrol and Prevention (CDC) test method. Urea nitrogen [Mass/volume] in Serum or PlasmaOrdered By: Eliezer Juarez on 75-30-9777Mgqu nitrogen [Mass/Vol]15 mg/dL7-[facility] WBC Auto (Bld) [#/Vol]Ordered By: Eliezer Juarez on 91-41-5106VQV (Bld) [#/Vol]3.5 10*3/uL4.1-10.5FGalion Community HospitalCreatinine [Mass/volume] in Serum or PlasmaOrdered By: Cristian Beaver on 10-12-2023 Creatinine [Mass/Vol]1.11 mg/dL0.70-1.30Flower HospitalNo Panel InformationOrdered By: Cristian Beaver on 96-93-6067Htvexqhik GFR (CKD-EPI)> 60.0 mL/MinFlower HospitalPharmacy Creatinine Clearance (Chem64.55Flower HospitalUrea nitrogen [Mass/volume] in Serum or PlasmaOrdered By: Cristian Beaver on 38-12-0201Irlo nitrogen [Mass/Vol]18 mg/dL03-21Flower HospitalPROF CHEM 8 (BAS METB)on 24-51-1888Dgvak gap [Moles/Vol]10.5 mmol/LNormalAshtabula County Medical CenterComment on above:Performed By: #### BMP #### [facility] [address] [address] [address] Benedict EdmondsonCalcium [Mass/Vol]9.5 mg/dLNormal8.5-10.1[facility] Comment on above:Performed By: #### BMP #### [facility] [address] [address] [address] Benedict EdmondsonChloride [Moles/Vol]106 mmol/APznaui56-689NksAshtabula County Medical Center Comment on above:Performed By: #### BMP #### [facility] [address] [address] [address] Benedict EdmondsonCO2 [Moles/Vol]28.8 mmol/VCulorp35.0-32.0[facility] Comment on above:Performed By: #### BMP #### [facility] [address] [address] [address] Benedict EdmondsonCreatinine [Mass/Vol]1.28 mg/dLNormal0.70-1.30The [facility] County HospitalComment on above:Performed By: #### BMP #### [facility] [address] [address] [address] Mcmullen ChangEGFR-AF JAMAICAN>60Normal>=60The [facility] County HospitalComment on above:Performed By: #### BMP #### [facility] [address] [address] [address] Benedict PatelGFR-NON AF GESHACDL64 mL/min/1.97h7Iymjuhhubs low>=60The [facility] County HospitalComment on above:Performed By: #### BMP #### [facility] [address] [place] [address] Dr. Benedict EdmondsonGlucose [Mass/Vol]97 mg/iIPaukuk50-724Lww [facility] Comment on above:Performed By: #### BMP #### [facility] [address] [place] [address] Dr. Benedict EdmondsonPotassium [Moles/Vol]4.3 mmol/LNormal3.5-5.1The [facility] Comment on above:Performed By: #### BMP #### [facility] [address] [place] [address] Dr. Benedict EdmondsonSodium [Moles/Vol]141 mmol/LIbpite273-110Ppj [facility] Comment on above:Performed By: #### BMP #### [facility] [address] [place] [address] Dr. Benedict EdmondsonUrea nitrogen [Mass/Vol]17.0 mg/dLNormal7.0-18.0The [facility] County HospitalComment on above:Performed By: #### BMP #### [facility] [address] [place] [address] Dr. Benedict EdmondsonUrea nitrogen/Creatinine [Mass ratio]13.3 mg/mgNormalThe [facility] County HospitalComment on above:Performed By: #### BMP #### [facility] [address] [place] [address] Dr. Benedict Moore 14(COMP METB)on 73-18-6716Xbuuule [Mass/Vol]3.1 g/dL Critically low3.4-5.0The [facility] County HospitalComment on above:Performed By: #### CMP #### [facility] [address] [address] [address] Benedict EdmondsonAlbumin/Globulin [Mass ratio]0.8 {ratio}NormalThe [facility] County HospitalComment on above:Performed By: #### CMP #### [facility] [address] [place] [address] Dr. Benedict AdamsP [Catalytic activity/Vol]83 U/QAvsyuo24-141Egx [facility] HospitalComment on above:Performed By: #### CMP #### [facility] [address] [place] [address] Dr. Benedict Hidalgo [Catalytic activity/Vol]29 U/ROhxjbo67-96Yjw [facility] HospitalComment on above:Performed By: #### CMP #### [facility] [address] [place] [address] Dr. Benedict Forbes gap [Moles/Vol]12.9 mmol/LNormalThe [facility] Comment on above:Performed By: #### CMP #### [facility] [address] [place] [address] Dr. Benedict Mario [Catalytic activity/Vol]31 U/CTpbvah99-77Wlm [facility] HospitalComment on above:Performed By: #### CMP #### [facility] [address] [place] [address] Dr. Benedict EdmondsonBilirubin [Mass/Vol]1.0 mg/dLNormal0.2-1.0The [facility] Comment on above:Performed By: #### CMP #### [facility] [address] [place] [address] Dr. Benedict EdmondsonCalcium [Mass/Vol]9.2 mg/dLNormal8.5-10.1The [facility] Comment on above:Performed By: #### CMP #### [facility] [address] [place] [address] Dr. Benedict EdmondsonChloride [Moles/Vol]102 mmol/SYleuaq44-213Roh [facility] Comment on above:Performed By: #### CMP #### [facility] [address] [address] [address] Benedict EdmondsonCO2 [Moles/Vol]27.0 mmol/FDsjcoq87.0-32.0The [facility] Comment on above:Performed By: #### CMP #### [facility] [address] [address] [address] Benedict EdmondsonCreatinine [Mass/Vol]2.03 mg/dLCritically high0.70-1.30The [facility] County HospitalComment on above:Performed By: #### CMP #### [facility] Laboratory [address] [place] [address] Dr. Mcmullen ChangEGFR-AF KBTPUTXP25 mL/min/1.91h7Gwaebgffya low>=60The [facility] HospitalComment on above:Performed By: #### CMP #### [facility] [address] [place] [address] Dr. Benedict PatelGFR-NON AF IHAXVRHQ92 mL/min/1.47b4Lobjljregj low>=60The [facility] HospitalComment on above:Performed By: #### CMP #### [facility] [address] [place] [address] Dr. Benedict EdmondsonGlobulin (S) [Mass/Vol]3.8 g/dLNormalThe Clermont County HospitalComment on above:Performed By: #### CMP #### [facility] [address] [place] [address] Dr. Benedict EdmondsonGlucose [Mass/Vol]94 mg/wJEytaqs65-478DzpAshtabula County Medical Center Comment on above:Performed By: #### CMP #### [facility] [address] [address] [address] Benedict EdmondsonPotassium [Moles/Vol]4.9 mmol/LNormal3.5-5.1[facility] Comment on above:Performed By: #### CMP #### [facility] [address] [place] [address] Dr. Benedict EdmondsonProtein [Mass/Vol]6.9 g/dLNormal6.4-8.2[facility] Comment on above:Performed By: #### CMP #### [facility] [address] [address] [address] Benedict EdmondsonSodium [Moles/Vol]137 mmol/KPnkbqs902-457Qoq [facility] Comment on above:Performed By: #### CMP #### [facility] [address] [address] [address] Benedict EdmondsonUrea nitrogen [Mass/Vol]34.0 mg/dLCritically high7.0-18.0The [facility] County HospitalComment on above:Performed By: #### CMP #### [facility] [address] [address] [address] Benedict Dickinson nitrogen/Creatinine [Mass ratio]16.7 mg/mgNoalThe Clermont County HospitalComment on above:Performed By: #### CMP #### [facility] [address] [address] [address] Benedict EdmondsonBacteria identified Cx Nom (Bld)on 95-98-7138Klujetsweiihmm and review of laboratory resultsNormalOhioHealOhio State Health SystemCBC Auto Differentialon 20-05-8115Nfsgwgiwu (Bld) [#/Vol]0.02 10*3/uLOhioHealthBasophils/100 WBC (Bld) 0.4 %OhioHealthEosinophils [...] (Bld)14.4 %OhioHealthNeutrophils (Bld) [#/Vol]3.78 10*3/uLOhioHealthNeutrophils/100 WBC (Bld)69.5 %[facility] Nucleated RBC (Bld) [#/Vol]0.00 10*3/uLOhioHealthNucleated RBC/100 WBC (Bld) [Ratio]0.0 %OhioHealthPlatelet mean volume (Bld) [Entitic vol]9.7 fL9.4 - 12.4 fLOhioHealthPlatelets (Bld) [#/Vol]170 10*3/uLOhioHealthRBC (Bld) [#/Vol]3.74 10*6/uLLowOhioHealthWBC (Bld) [#/Vol]5.43 10*3/uLOhioHealthOhioHealthLaboratory - Microbiology and Antimicrobial susceptibilityon 47-64-1105Konjtrsv identified Cx Nom (Bld)No Growth After 5 DaysOhioHealthMagnesium Levelon 11-08-2022 Magnesium [Mass/Vol]2.3 mg/dL1.6 - 2.4 mg/dLOhioHealthMagnesium [Mass/Vol]on 86-57-1756Lbatfzijmrhfsf and review of laboratory resultsNormalOhioHealth OhioHealthRenal function 1999 panelon 37-18-6294Kncigpv [Mass/Vol]3.3 g/dL3.2 - 5.2 g/dLOhioHealthAnion gap [Moles/Vol]13 mmol/L10 - 20 mmol/LOhioHealthCalcium [Mass/Vol]9.3 mg/dL8.4 - 10.2 mg/dLOhioHealthChloride [Moles/Vol]104 mmol/L98 - 108 mmol/LOhioHealthCreatinine [Mass/Vol]1.16 mg/dL0.80 - 1.30 mg/dLOhioHealth GFR/1.73 sq M.predicted CKD-EPI (S/P/Bld) [Vol rate/Area]62- [facility] Comment on above:Estimated GFR was calculated using the 2020 CKD-EPI creatinine equation.Glucose [Mass/Vol]114 mg/tVHstr32 - 99 mg/dLOhioHealthHCO3 [Moles/Vol] 24 mmol/L21 - 32 mmol/LOhioHealthInterpretation and review of laboratory results AbnormalOhioHealthPhosphate [Mass/Vol]2.7 mg/dL2.3 - 3.7 mg/dLOhioHealth Potassium [Moles/Vol]4.1 mmol/L3.5 - 5.1 mmol/LOhioHealthSodium [Moles/Vol]137 mmol/L135 - 145 mmol/LOhioHealthUrea nitrogen [Mass/Vol]24 mg/dL8 - 25 mg/dL [facility] HospitalUrea nitrogen/Creatinine [Mass ratio]20.7 mg/keXldd29.0 - 20.0 [facility] Laboratory Services has implemented the eGFR calculation approach that does not have a coefficient for race that conforms to the NKF-ASN Task Force Recommendations.[facility] HospitalXR Chest 1 Viewon 11-08-2022 1. Prior median [...] pneumothorax or acute osseous change otherwise suspected. [employer] Workstation ID: [id number] RISEXAMINATION: XR CHEST PA/AP [...] pneumothorax or acute osseous change otherwise suspected. [employer] Workstation ID: [id number] [facility] HospitalRadiology Study observation (narrative)[facility] HospitalXR Chest 1 View Ordered By: Romulo Case on 28-41-7709PxxrKmkuwn Work Phone: cbc Auto Differentialon 77-44-0448Dxgfrwocp (Bld) [#/Vol]0.02 10*3/uLOhioHealthBasophils/100 WBC (Bld)0.3 %OhioHealthEosinophils (Bld) [...] [#/Vol]3.75 10*6/uLLowOhioHealthWBC (Bld) [#/Vol]5.98 10*3/uLOhioHealthOhioHealthECG 12 Leadon 72-91-5826Sufwaj Hqfi36ZAM OhioHealthP-R Soejiryq269 msOhioHealthQ-T Cpfrikco737 msOhioHealthQRS Ehwsusrw44 msOhioHealthQTC Calculation (Bezet)467 msOhioHealthR Sjdu17jiwqnnlToqhMyyodbC Oqnw45ffvaybcLxcgEsnsioIfnhgvkswyn Fwyy54TCBLnseEpxhgsZievv rhythm with occasional Premature ventricular complexes and Premature atrial complexes Otherwise normal ECG Confirmed by YAW DIAZ, [facility] ([id number]) on 11/07/2022 11:37:24 AMMUSE North DakotaHealthMagnesium Levelon 49-05-6003Ywbxpcwgt [Mass/Vol]2.1 mg/dL1.6 - 2.4 mg/dLOhioHealthMagnesium [Mass/Vol]on 36-98-8640Dqwvakusmnzixz and review of laboratory resultsNormalOhioHealthOhioHealthRenal function 2000 panelon 61-18-6978Kwjtawh [Mass/Vol]3.1 g/dLLow3.2 - 5.2 g/dLOhioHealthAnion gap [Moles/Vol]16 mmol/L10 - 20 mmol/LOhioHealthCalcium [Mass/Vol]8.8 mg/dL8.4 - 10.2 mg/dLOhioHealthChloride [Moles/Vol]101 mmol/L98 - 108 mmol/LOhioHealth Creatinine [Mass/Vol]1.34 mg/dLHigh0.80 - 1.30 mg/dLOhioHealthGFR/1.73 sq M.predicted CKD-EPI (S/P/Bld) [Vol rate/Area]53Low- PINFOhioHealthComment on above:Estimated GFR was calculated using the 2020 CKD-EPI creatinine equation. Glucose [Mass/Vol]102 mg/mYNfme01 - 99 mg/dLOhioHealthHCO3 [Moles/Vol]23 mmol/L 21 - 32 mmol/LOhioHealthInterpretation and review of laboratory resultsAbnormal OhioHealthPhosphate [Mass/Vol]3.1 mg/dL2.3 - 3.7 mg/dLOhioHealthPotassium [Moles/Vol]3.8 mmol/L3.5 - 5.1 mmol/LOhioHealthSodium [Moles/Vol]136 mmol/L135 - 145 mmol/LOhioHealthUrea nitrogen [Mass/Vol]26 mg/dLHigh8 - 25 mg/dLOhioHealth Urea nitrogen/Creatinine [Mass ratio]19.4 mg/mg10.0 - 20.0[facility] Laboratory Services has implemented the eGFR calculation approach that does not have a coefficient for race that conforms to the NKF-ASN Task Force Recommendations.[facility] HospitalTSH DL <= 0.005 mIU/L Qnon 11-07-2022 Interpretation and review of laboratory resultsNormalOParkwood HospitalTSH Qn1.75 m[IU]/LOhioHealthOhioHealthTroponin x 2 (Now and Repeat in 3 hours)on 11-07-2022 Interp Troponin T Delta ChangeProbable non-acute cardiac injury or late presentation of acute injury.[facility] HospitalInterpretation and review of laboratory resultsAbnormalOhioHealthTroponin T51 ng/LCritically highNINF - 22 ng/L [facility] HospitalTroponin T Delta %-7 %<20% of Baseline TroponinDayton Children's Hospital Troponin x 2 (Now and Repeat in 3 hours)Ordered By: Eloina Lama on 18-77-6701Shuwjrihtxyhtx and review of laboratory resultsAbnormalOOhio State Health Systemealth Troponin T55 ng/LCritically highNINF - 22 ng/LOhioHealthTroponin T InterpretationPossible acute cardiac injury.[facility] HospitalioHealthBacteria identified Aer cx Nom (Sput)Ordered By: Thania Tierney on 69-11-1911Lthbldampqn observation Gram stain Nom (Sput)Rare WBCOhioHealthMicroscopic observation Gram stain Nom (Sput)Many Mixed FloraOhioHealthMicroscopic observation Gram stain Nom (Sput)Many Epithelial CellsOhioHealthOhioHealthCBC Auto Differentialon 17-13-8249Zaniyewfb (Bld) [#/Vol]0.02 10*3/uLOhioHealthBasophils/100 WBC (Bld) 0.3 %OhioHealthEosinophils [...] complete w contrastOrdered By: Obdulio Mack on 60-86-8688DD09.1148 %[facility] Work Phone: [facility] Work Phone: Echocardiogram complete w contraston 18-32-8462Fxzhiwt Info Name: TRISTIN POWELL Age: 82 years : 1940 Gender: Male Ht: 185 cm Wt: 113 kg BSA: 2.45 m2 HR: 85 bpm BP: 112 / 62 mmHg Technical Quality: Technically difficult Exam Date: 11/06/2022 11:02 AM Patient Status: Inpatient Insurance Agent: Jefferson Mckeon, DEMETRIS, KIRILL Exam Type: ECHOCARDIOGRAM COMPLETE W CONTRAST Study Info Indications R06.00 - Dyspnea, unspecified - Evaluate LV function - Dyspnea [phone] BMI: 32.98 kg/m2 Summary 1. Mild concentric [...] Date: 11/06/2022 11:02 AM Patient Status: Inpatient Insurance Agent: Jefferson Mckeon MHA, KIRILL Exam Type: ECHOCARDIOGRAM COMPLETE W CONTRAST Study Info Indications R06.00 - Dyspnea, unspecified - Evaluate LV function - Dyspnea [facility] [phone] BMI: 32.98 kg/m2 Summary 1. Mild concentric [...] Name Value Normal (more content not included)... [facility] HospitalRadiology Study observation (narrative)[facility] HospitalMagnesium Levelon 33-93-2008Juurzlpqp [Mass/Vol]2.0 mg/dL1.6 - 2.4 mg/dLOhioHealthMagnesium [Mass/Vol]on 95-80-3142Nlbqntlvitddiz and review of laboratory resultsNormal [facility] HospitalOhioHealthRenal function 1999 panelon 05-45-7400Gwfnjcu [Mass/Vol]3.3 g/dL3.2 - 5.2 g/dLOhioHealthAnion gap [Moles/Vol]16 mmol/L10 - 20 mmol/L OhioHealthCalcium [Mass/Vol]8.9 mg/dL8.4 - 10.2 mg/dLOhioHealthChloride [Moles/Vol]102 mmol/L98 - 108 mmol/LOhioHealthCreatinine [Mass/Vol]1.34 mg/dL High0.80 - 1.30 mg/dLOhioHealthGFR/1.73 sq M.predicted CKD-EPI (S/P/Bld) [Vol rate/Area]53Low- PINFOhioHealthComment on above:Estimated GFR was calculated using the 2020 CKD-EPI creatinine equation.Glucose [Mass/Vol]141 mg/zXZlii18 - 99 mg/dLOhioHealthHCO3 [Moles/Vol]24 mmol/L21 - 32 mmol/LOhioHealth Interpretation and review of laboratory resultsAbnormalOhioHealthPhosphate [Mass/Vol]3.6 mg/dL2.3 - 3.7 mg/dLOhioHealthPotassium [Moles/Vol]3.9 mmol/L3.5 - 5.1 mmol/LOhioHealthSodium [Moles/Vol]138 mmol/L135 - 145 mmol/LOhioHealthUrea nitrogen [Mass/Vol]26 mg/dLHigh8 - 25 mg/dLOhioHealthUrea nitrogen/Creatinine [Mass ratio]19.4 mg/mg10.0 - 20.0[facility] has implemented the eGFR calculation approach that does not have a coefficient for race that conforms to the NKF-ASN Task Force Recommendations.[facility]utum Aerobic CultureOrdered By: Thania Tierney on 69-94-4146Vbxvsjid identified Aer cx Nom (Sput)Normal [place] After 48 HoursOhKettering Health Troy Auto Differentialon 90-88-3466Zyivdlhqc (Bld) [#/Vol]0.02 10*3/uLNorth DakotaHealth Basophils/100 WBC (Bld)0.3 %OhioHealthEosinophils (Bld) [#/Vol]0.18 10*3/uL OhioPomerene HospitalEosinophils/100 WBC (Bld)2.7 %[facility] HospitalErythrocyte distribution width (RBC) [Entitic vol]13.8 %11.6 - 14.8 %North DakotaHealthHematocrit (Bld) [Volume fraction]33.8 %Low41.0 - 53.0 %OhioPomerene HospitalHemoglobin (Bld) [Mass/Vol]12.1 g/dLLow 13.5 - 17.5 g/dLOhProtestant Deaconess HospitalImmature granulocytes (Bld) [#/Vol]0.06 10*3/uL OhioPomerene HospitalImmature granulocytes/100 WBC (Bld)0.90 %[facility] HospitalComment on above: The IG parameter is [...] (Bld) [#/Vol]3.68 10*6/uLLowOhioHealthWBC (Bld) [#/Vol]6.68 10*3/uLOhioHealthOhioHealthMagnesium Levelon 82-93-0789Ijhsidpej [Mass/Vol]2.2 mg/dL1.6 - 2.4 mg/dLOhioHealthMagnesium [Mass/Vol]on 31-55-3682Pbiboujysyaigy and review of laboratory resultsNormalOhioHealthOhioHealthRenal function 2000 panelon 42-71-8147Pqotllj [Mass/Vol]3.1 g/dLLow3.2 - 5.2 g/dLOhioHealthAnion gap [Moles/Vol]16 mmol/L10 - 20 mmol/LOhioHealthCalcium [Mass/Vol]8.6 mg/dL8.4 - 10.2 mg/dLOhioHealthChloride [Moles/Vol]101 mmol/L98 - 108 mmol/LOhioHealth Creatinine [Mass/Vol]1.20 mg/dL0.80 - 1.30 mg/dLOhioHealthGFR/1.73 sq M.predicted CKD-EPI (S/P/Bld) [Vol rate/Area]60- PINFOhioHealthComment on above: Estimated GFR was calculated using the 2020 CKD-EPI creatinine equation.Glucose [Mass/Vol]114 mg/jXIqjp10 - 99 mg/dLOhioHealthHCO3 [Moles/Vol]22 mmol/L21 - 32 mmol/LOhioHealthInterpretation and review of laboratory resultsAbnormal OhioHealthPhosphate [Mass/Vol]4.3 mg/dLHigh2.3 - 3.7 mg/dLOhioHealthPotassium [Moles/Vol]3.7 mmol/L3.5 - 5.1 mmol/LOhioHealthSodium [Moles/Vol]135 mmol/L135 - 145 mmol/LOhioHealthUrea nitrogen [Mass/Vol]22 mg/dL8 - 25 mg/dLOhioHealthUrea nitrogen/Creatinine [Mass ratio]18.3 mg/mg10.0 - 20.0[facility] Services has implemented the eGFR calculation approach that does not have a coefficient for race that conforms to the NKF-ASN Task Force Recommendations.[facility] Auto Differentialon 66-39-4548Ehkndiszf (Bld) [#/Vol]0.01 10*3/uLOhioHealthBasophils/100 WBC (Bld)0.2 %[facility] Eosinophils (Bld) [#/Vol]0.11 10*3/uLOhioHealthEosinophils/100 WBC (Bld)1.7 % [facility] HospitalErythrocyte distribution width (RBC) [Entitic vol]13.9 %11.6 - 14.8 % [facility] HospitalHematocrit (Bld) [Volume fraction]36.9 %Low41.0 - 53.0 %[facility] Hemoglobin (Bld) [Mass/Vol]13.0 g/dLLow13.5 - 17.5 [...] [#/Vol]6.54 10*3/uLOhioHealthOhioHealthCOVID-19, MolecularOrdered By: Elaine Robles on 78-55-1581TCZU-CoV-2 (COVID-19) RNA OREN+probe Ql (Resp)Not detectedNot DetectedOhioHealthLegionella Antigen, Urineon 52-92-0541Qmsrznvdbxilgb and review of laboratory resultsNormalOhioHealthL. pneumophila Ag Ql (U)NegativeNegative for Legionella antigenOhioHealthComment on above:COMMENT: Results may be affected if patient is on diuretics. INTERPRETATION OF RESULTS: Test detects Legionella pneumophilia serogroup 1 antigens in urine. Legionnaires disease cannot be ruled out since other serogroups and species may also cause disease. OhioHealthMRSA DNA Amplified ProbeOrdered By: Joseluis Limon on 54-95-7595DPCN DNA OREN+probe Ql (Unsp spec)Not detectedNot Detected, MRSA NEGATIVEOhioHealth MRSA DNA OREN+probe Ql (Unsp spec)Ordered By: Joseluis Limon on 11-04-2022 Interpretation and review of laboratory resultsNormalOhioHealthOhioHealth Magnesium Levelon 23-09-6316Wjucyzmca [Mass/Vol]2.0 mg/dL1.6 - 2.4 mg/dL OhioHealthMagnesium [Mass/Vol]on 94-30-2753Knorzicxjydxvz and review of laboratory resultsNormalOhioHealthOhioHealthRenal function 2000 panelon 31-14-5451Epdonfm [Mass/Vol]3.3 g/dL3.2 - 5.2 g/dLOhioHealthAnion gap [Moles/Vol]15 mmol/L10 - 20 mmol/LOhioHealthCalcium [Mass/Vol]9.2 mg/dL8.4 - 10.2 mg/dLOhioHealthChloride [Moles/Vol]105 mmol/L98 - 108 mmol/LOhioHealth Creatinine [Mass/Vol]0.97 mg/dL0.80 - 1.30 mg/dLOhioHealthGFR/1.73 sq M.predicted CKD-EPI (S/P/Bld) [Vol rate/Area]77- PINFOhioHealthComment on above: Estimated GFR was calculated using the 2020 CKD-EPI creatinine equation.Glucose [Mass/Vol]103 mg/hPAuov68 - 99 mg/dLOhioHealthHCO3 [Moles/Vol]24 mmol/L21 - 32 mmol/LOhioHealthInterpretation and review of laboratory resultsAbnormal OhioHealthPhosphate [Mass/Vol]3.9 mg/dLHigh2.3 - 3.7 mg/dLOhioHealthPotassium [Moles/Vol]4.4 mmol/L3.5 - 5.1 mmol/LOhioHealthSodium [Moles/Vol]140 mmol/L135 - 145 mmol/LOhioHealthUrea nitrogen [Mass/Vol]18 mg/dL8 - 25 mg/dLOhioHealthUrea nitrogen/Creatinine [Mass ratio]18.6 mg/mg10.0 - 20.0OhioMercy Health Allen HospitalioHealth Laboratory Services has implemented the eGFR calculation approach that does not have a coefficient for race that conforms to the NKF-ASN Task Force Recommendations.OhioPomerene HospitalOhioHealthRespiratory pathogens DNA and RNA panel OREN+non-probe (Nph)Ordered By: Shanelle Garcia on 00-58-6430Fiyaqwuehx DNA OREN+non-probe Ql (Nph)Not detectedNot DetectedOhioHealthB. parapertussis [id number] DNA OREN+non-probe Ql (Nph)Not detectedNot DetectedOhioHealthB. pertussis [...] detectedNot DetectedOhioHealthRSV RNA OREN+non-probe Ql (Nph)Not detectedNot VqvsrccbOlctNteqobFYDK-ArC-4 (COVID-19) RNA OREN+non-probe Ql (Nph)Not detected Not DetectedOhioHealthOhioHealthS. pneumoniae Urine AntigenOrdered By: Kezia Mercedes on 94-27-1967Hlkvvevcushmuq and review of laboratory resultsNormal OhioHealthS. pneumoniae Ag Ql (U)NegativePresumptive Negative for Pneumococcal pneumoniaeOhioHealthComment on above:A negative result suggests no current or recent pneumococcal infection. A negative result does not rule out Streptococcus pneumoniae infection since the antigen present in the sample may be below the detection limit of the test.CiksFmpfqtKILY-XwW-6 (COVID-19) RNA OREN+probe Ql (Resp)Ordered By: Elaine Robles on 59-93-1205Lcdbvqduixjxrn and review of laboratory resultsNormalOhioHealthThis test was [...] at the following links: For Healthcare Providers: https://www.fda.gov/media/587637/download For Patients: https://www.fda.gov/media/876571/downloadOhioHealthOhioHealthXR Humerus Left 2+ Views (Standard)on 11-04-2022 1. [...] lower lung base scarring/atelectasis. Workstation ID: [id number] [facility] HospitalRadiology Study observation (narrative)OhioPomerene HospitalXR Humerus Left 2+ Views (Standard)Ordered By: Gustavo Muro on 27-21-7814WoraFhijdg Work Phone: Basic metabolic 2000 panelon 87-85-0385Voxuw gap [Moles/Vol]14 mmol/L10 - 20 mmol/LOhioHealthCalcium [Mass/Vol]9.5 mg/dL8.4 - 10.2 mg/dLOhioHealthChloride [Moles/Vol]101 mmol/L98 - 108 mmol/LOhioHealth Creatinine [Mass/Vol]1.13 mg/dL0.80 - 1.30 mg/dLOhioHealthGFR/1.73 sq M.predicted CKD-EPI (S/P/Bld) [Vol rate/Area]64- PINFOhioHealthComment on above: Estimated GFR was calculated using the 2020 CKD-EPI creatinine equation.Glucose [Mass/Vol]92 mg/dL65 - 99 mg/dLOhioHealthHCO3 [Moles/Vol]24 mmol/L21 - 32 mmol/L [facility] HospitalInterpretation and review of laboratory resultsNormalOhioHealth Potassium [Moles/Vol]4.3 mmol/L3.5 - 5.1 mmol/LOhioHealthSodium [Moles/Vol]135 mmol/L135 - 145 mmol/LOhioHealthUrea nitrogen [Mass/Vol]20 mg/dL8 - 25 mg/dL [facility] HospitalUrea nitrogen/Creatinine [Mass ratio]17.7 mg/mg10.0 - 20.0[facility] Laboratory Services has implemented the eGFR calculation approach that does not have a coefficient for race that conforms to the NKF-ASN Task Force Recommendations.[facility] Auto Differentialon 11-69-9569Bsvoagovx (Bld) [#/Vol]0.03 10*3/uLOhioHealthBasophils/100 WBC (Bld)0.4 %[facility] Eosinophils (Bld) [#/Vol]0.18 10*3/uLOhioHealthEosinophils/100 WBC (Bld)2.2 % [facility] HospitalErythrocyte distribution width (RBC) [Entitic vol]14.3 %11.6 - 14.8 % [facility] HospitalHematocrit (Bld) [Volume fraction]40.7 %Low41.0 - 53.0 %[facility] Hemoglobin (Bld) [Mass/Vol]13.4 g/dLLow13.5 - 17.5 g/dLOhioPomerene HospitalImmature granulocytes (Bld) [#/Vol]0.06 10*3/uLOhioHealthImmature granulocytes/100 WBC (Bld)0.70 %[facility] HospitalComment on above:The IG parameter is the percentage of metamyelocytes, myelocytes and promyelocytes. An immature granulocyte count (IG) of 1% or more suggests the possibility of infection, an IG count of 3% is very likely related to an infection.Interpretation and review of laboratory results AbnormalOhioHealthLymphocytes (Bld) [#/Vol]0.70 10*3/uLLowOhioHealth Lymphocytes/100 WBC (Bld)8.7 %[facility] HospitalMCH (RBC) [Entitic mass]30.5 pg26.0 - 34.0 pgOhioHealthMCHC (RBC) [Mass/Vol]32.9 g/dL31.0 - 37.0 g/dLOhioHealthComment on above:Cold Agglutinin presentMCV (RBC) [Entitic vol]92.7 fL80.0 - 100.0 fL [facility] HospitalMonocytes (Bld) [#/Vol]0.68 10*3/uLOhioHealthMonocytes/100 WBC (Bld) 8.4 %OhioHealthNeutrophils (Bld) [#/Vol]6.41 10*3/uLOhioHealthNeutrophils/100 WBC (Bld)79.6 %OhioHealthNucleated RBC (Bld) [#/Vol]0.00 10*3/uLOhioHealth Nucleated RBC/100 WBC (Bld) [Ratio]0.0 %OhioHealthPlatelet mean volume (Bld) [Entitic vol]10.0 fL9.4 - 12.4 fLOhioHealthPlatelets (Bld) [#/Vol]192 10*3/uL OhioHealthRBC (Bld) [#/Vol]4.39 10*6/uLLowOhioHealthWBC (Bld) [#/Vol]8.06 10*3/uLOhioHealthOhioHealthCRP [Mass/Vol]on 41-40-0921Zemygcdzdxxsop and review of laboratory resultsAbnormalOhioHealthCRP, Inflammationon 17-07-7330IBU [Mass/Vol]35.4 mg/LHigh0.0 - 10.0 mg/LOhioHealthCT Pulmonary Arterieson [...] Left lower lobe pneumonia. Workstation ID: [id number] [facility] HospitalRadiology Study observation (narrative)[facility] Pulmonary Arteries Ordered By: Silvio Dhillon on 69-52-6305YxoeKdgpuf Work Phone: ekg 12-leadon 70-34-1780Krgfmo Ladf56WFYOtdcDzqhjlZ Auoq03cnaaikgGmmtLxywawG-L Qucdabtl522 msOhioHealthQ-T Vdbmldsz862 msOhioHealth QRS Zhikfcjg47 msOhioHealthQTC Calculation (Bezet)461 msOhioHealthR Axis46 degreesOhioHealthT Sddj43rpvznzcQrukYqlzvtFunnqotgpmy Cdgj67TFZMitjQzzlrfVhrbzx sinus rhythm Normal ECG Confirmed by PIERCE MOREAU DO ([id number]) on 11/03/2022 4:55:18 PMMUSEOhioHealthESR Westergren method (Bld) [Velocity]on 77-97-2948TUS (Bld) [Velocity]30 mm/hHigh [facility] HospitalInterpretation and review of laboratory resultsAbnormRegency Hospital CompanyGold Topon 89-82-7543Elmzx TubeHold for add-ons.[facility] HospitalComment on above:Auto resulted.NT Pro BNPon 06-96-0089Zoookisgplx peptide.B prohormone N- Terminal [Mass/Vol]429 pg/mLHigh0 - 300 pg/mLOhioHealthNatriuretic peptide.B prohormone N-Terminal [Mass/Vol]on 51-22-9397Djimhyytsbuswm and review of laboratory resultsAbnormalOhiSDealthPride Study Cut-offs Rule In: < /= 50 Years >450 pg/mL 51 Years - 75 Years >900 pg/mL 76 Years - 99 Years >1800 pg/mL Rule Out: All patients <300 pg/mLOhioHealthOhioHealthNo Panel Informationon 11-03-2022 Extra TubeHold for add-ons.[facility] HospitalComment on above:Auto resulted.[facility] HospitalTroponinOrdered By: Randal Lopez on 39-21-4342Bftsdl Troponin T Delta ChangeProbable non-acute cardiac injury or late presentation of acute injury.[facility] HospitalInterpretation and review of laboratory resultsAbnormal [facility] HospitalTroponin T119 ng/LCritically highNINF - 22 ng/LOhioHealthTroponin T Delta %1 %<20% of Baseline TroponinOhioMercy Health Allen HospitalioHealthTroponinOrdered By: Rhonda Bland on 51-36-8908Gmakonieqikvze and review of laboratory results AbnormalOhioHealthTroponin T117 ng/LCritically highNINF - 22 ng/LOhioHealth Troponin T InterpretationPossible acute cardiac injury.[facility] UrinalysisOrdered By: Flory Pino on 00-08-4852Zrfzfpjd Auto Ql (U)None Seen None Seen /hpfOhioHealthBilirubin [...] Containeron 11-03-2022 OhioHealthVenous Doppler BILATERAL Lower Extremitieson 85-37-0417Xwupysd Info Name: TRISTIN POWELL Age: 82 years : 1940 Gender: Male Exam Date: 11/03/2022 1:57 PM 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 Conclusions * No evidence of deep or superficial vein thrombosis in the right or left lower extremities. . Report Signatures Finalized by Tera Meyer MD, [facility], [facility] on 11/03/2022 02:59 PM [facility] HospitalRadiology Study observation (narrative)[facility] Doppler BILATERAL Lower ExtremitiesOrdered By: Sylvia Meyer on 78-44-8136UhwgGhnhan Work Phone: xr Chest 1 Viewon 24-99-7828RCLGZKWX/ 1. Patient is status post sternotomy, somewhat rotated, lordotic. The visualized osseous structuresappear intact. 2. The heart size seems normal. The aorta is tortuous, atherosclerotic. 3. There are some linear densities at lung bases, either scarring or discoid atelectatic changes. There are no focal infiltrates, pleural effusions, pulmonary edema, or pneumothorax. There are a few scattered calcified granulomas within the lungs. [employer] Workstation ID: [id number] RISEXAMINATION: AP UPRIGHT CHEST: 11/03/2022 AT 1536 HOURS HISTORY: Injury/Trauma or Illness?:Illness/Other How long have you had these symptoms (acute/chronic)?:Unknown sob COMPARISON FILMS: AP chest 10/09/2018 from [facility]. Cedric Martines MD - 11/03/2022 EXAMINATION: AP UPRIGHT CHEST: 11/03/2022 AT 1536 HOURS HISTORY: Injury/Trauma or Illness?:Illness/Other How long have you had these symptoms (acute/chronic)?:Unknown sob COMPARISON FILMS: AP chest 10/09/2018 from [facility]. IMPRESSION: FINDINGS/ 1. Patient is [...] within the lungs. KKV/ads Workstation ID: [id number] [facility] HospitalRadiology Study observation (narrative)[facility] HospitalXR Chest 1 View Ordered By: Cedric Emmanuel on 62-35-1416EnysBnkyxe Work Phone: XR Foot Left 3+ Views [...] of acute osseous abnormalities. Workstation ID: [id number] [facility] Study observation (narrative)[facility] HospitalXR Foot Left 3+ Views (Standard)Ordered By: Rohit March on 86-08-3884UchcQkfnya Work Phone: BNOutagam[facility] [phone] peptide B (Bld) [Mass/Vol] 93 pg/mLNormal0-100[facility] HospitalComment on above:Performed By: #### BNP #### [place] [address] Ph. [phone] Blood Count with Auto Diffon [id number]#BASO#: 0.0 Normal0.0-0.1[facility] Ment[facility] HospitalComment on above:Order Comment: resuts after 30 minutes of incubation at 37degree C possible cold rbc agglutination Performed By: #### DIFF, CBCAD #### [place] [address] Ph. [phone]%BASO%: 9Jdeuhd4-5QeykwmsCleveland Clinic Mentor HospitalComment on above: Order Comment: resuts after 30 minutes of incubation at 37degree C possible cold rbc agglutinationPerformed By: #### DIFF, CBCAD #### [place] [address] Ph. [phone] (Bld) [#/Vol]0.2 10*3/uLNormal0.0-0.5[facility] HospitalComment on above:Order Comment: resuts after 30 minutes of incubation at 37degree C possible cold rbc agglutinationPerformed By: #### DIFF, CBCAD #### [place] [address] Ph. [phone]/100 WBC (Bld)2 %Normal0-5[facility] Comment on above:Order Comment: resuts after 30 minutes of incubation at 37degree C possible cold rbc agglutinationPerformed By: #### DIFF, CBCAD #### [place] [address] Ph. [phone] distribution width (RBC) [Ratio]13.8 %Normal 11.5-14.5[facility] HospitalComment on above:Order Comment: resuts after 30 minutes of incubation at 37degree C possible cold rbc agglutinationPerformed By: #### DIFF, CBCAD #### [place] [address] Ph. [phone] (Bld) [Volume fraction]39.9 %Low42.0-52.0[facility] HospitalComment on above:Order Comment: resuts after 30 minutes of incubation at 37degree C possible cold rbc agglutinationPerformed By: #### DIFF, CBCAD #### [place] [address] Ph. [phone] (Bld) [Mass/Vol]13.7 g/kLYduwoc01.5-17.5[facility] HospitalComment on above:Order Comment: resuts after 30 minutes of incubation at 37degree C possible cold rbc agglutinationPerformed By: #### DIFF, CBCAD #### [place] [address] Ph. [phone] (Bld) [#/Vol]0.7 10*3/uLLow1.0-4.0[facility] HospitalComment on above:Order Comment: resuts after 30 minutes of incubation at 37degree C possible cold rbc agglutinationPerformed By: #### DIFF, CBCAD #### [place] [address] Ph. [phone]/100 WBC (Bld)6 %Gyp52-01RjjwquaAdena Regional Medical Center Comment on above:Order Comment: resuts after 30 minutes of incubation at 37degree C possible cold rbc agglutinationPerformed By: #### DIFF, CBCAD #### [place] [address] Ph. [phone] (RBC) [Entitic mass]31.3 qfEnpyeg41.0-35.0[facility] HospitalComment on above:Order Comment: resuts after 30 minutes of incubation at 37degree C possible cold rbc agglutinationPerformed By: #### DIFF, CBCAD #### [place] [address] Ph. [phone] (RBC) [Mass/Vol]34.3 g/nKAbgyxn39.0-36.0[facility] HospitalComment on above:Order Comment: resuts after 30 minutes of incubation at 37degree C possible cold rbc agglutinationPerformed By: #### DIFF, CBCAD #### [place] [address] Ph. [phone] (RBC) [Entitic vol]91.1 aYQwypqb02.0-100.0[facility] HospitalComment on above:Order Comment: resuts after 30 minutes of incubation at 37degree C possible cold rbc agglutinationPerformed By: #### DIFF, CBCAD #### [place] [address] Ph. [phone] (Bld) [#/Vol]0.8 10*3/uLNormal0.3-1.0[facility] HospitalComment on above:Order Comment: resuts after 30 minutes of incubation at 37degree C possible cold rbc agglutinationPerformed By: #### DIFF, CBCAD #### [place] [address] Ph. [phone]/100 WBC (Bld)7 %Normal1-15[facility] Comment on above:Order Comment: resuts after 30 minutes of incubation at 37degree C possible cold rbc agglutinationPerformed By: #### DIFF, CBCAD #### [place] [address] Ph. [phone] (Bld) [#/Vol]9.8 10*3/uLHigh1.8-7.7WAdena Regional Medical CenterComment on above:Order Comment: resuts after 30 minutes of incubation at 37degree C possible cold rbc agglutinationPerformed By: #### DIFF, CBCAD #### [place] [address] Ph. [phone]/100 WBC (Bld)84 %Xjoo48-87MnbaarlAdena Regional Medical Center Comment on above:Order Comment: resuts after 30 minutes of incubation at 37degree C possible cold rbc agglutinationPerformed By: #### DIFF, CBCAD #### [place] [address] Ph. [phone] mean volume (Bld) [Entitic vol]10.1 fLNormal9.4-12.3 [facility] HospitalComment on above:Order Comment: resuts after 30 minutes of incubation at 37degree C possible cold rbc agglutinationPerformed By: #### DIFF, CBCAD #### [place] [address] Ph. [phone] (Bld) [#/Vol]180 10*3/pKMrsipx500-477VtibizhAdena Regional Medical CenterComment on above:Order Comment: resuts after 30 minutes of incubation at 37degree C possible cold rbc agglutinationPerformed By: #### DIFF, CBCAD #### [place] [address] Ph. [phone] (Bld) [#/Vol]4.38 10*6/uLLow4.70-6.10WAdena Regional Medical CenterComment on above:Order Comment: resuts after 30 minutes of incubation at 37degree C possible cold rbc agglutinationPerformed By: #### DIFF, CBCAD #### [place] [address] Ph. [phone] (Bld) [#/Vol]11.6 10*3/uLHigh3.7-11.0WAdena Regional Medical CenterComment on above:Order Comment: resuts after 30 minutes of incubation at 37degree C possible cold rbc agglutinationPerformed By: #### DIFF, CBCAD #### [place] [address] Ph. [phone] Metabolic Panelon 01-60-7837Pxaezew [Mass/Vol]3.6 g/dLNormal3.5-5.0WAdena Regional Medical CenterComment on above:Performed By: #### CMP #### [place] [address] Ph. [phone] [Catalytic activity/Vol]85 U/OYnlvuz29-262SgriyitAdena Regional Medical CenterComment on above:Performed By: #### CMP #### [place] [address] Ph. [phone] [Catalytic activity/Vol]70 U/LHigh0-50WAdena Regional Medical CenterComment on above:Performed By: #### CMP #### [place] [address] Ph. [phone] [Catalytic activity/Vol]38 U/CUpeafm65-60OyairlbAdena Regional Medical CenterComment on above:Performed By: #### CMP #### [place] [address] Ph. [phone] [Mass/Vol]0.9 mg/dLNormal0.2-1.3WAdena Regional Medical CenterComment on above:Performed By: #### CMP #### [place] [id number] Ph. [phone] [Mass/Vol]8.9 mg/dLNormal8.4-10.2WAdena Regional Medical CenterComment on above:Performed By: #### CMP #### [address] [address] Ph. [phone] [Moles/Vol]102 mmol/RSaxedp15-311FzlkvejCleveland Clinic Mentor HospitalComment on above:Performed By: #### CMP #### [address] [address] Ph. [phone] [Moles/Vol]25 mmol/KEqrlfw64-01XwvauobAdena Regional Medical Center Comment on above:Performed By: #### CMP #### [address] [address] Ph. [phone] [Mass/Vol]1.02 mg/dLNormal0.66-1.25[facility] HospitalComment on above:Performed By: #### CMP #### [address] [address] Ph. [phone]/1.73 sq M.predicted among non-blacks MDRD (S/P/Bld) [Vol rate/Area]73 mL/min/{1.73_m2}Normal>60[facility] HospitalComment on above: Result Comment: GFR calculated using CKD-EPI (2020) formula.\X0D0A\Stage 1 Kidney damage (e.g., protein in the urine) with normal GFR >=90\X0D0A\Stage 2 Kidney damage with mild decrease in GFR 60-89\X0D0A\Stage 3a Moderate decrease in GFR 45-59\X0D0A\Stage 3b Moderate decrease in GFR 30-44\X0D0A\Stage 4 Severe reduction in GFR 15-29\X0D0A\Stage 5 Kidney failure <15Performed By: #### CMP #### [address] [address] Ph. [phone] [Mass/Vol]103 mg/zGDnwi68-866ZghhgzvCleveland Clinic Mentor Hospital Comment on above:Performed By: #### CMP #### [place] [address] Ph. [phone] [Moles/Vol]4.5 mmol/LNormal3.6-5.0[facility] HospitalComment on above:Performed By: #### CMP #### [place] [address] Ph. [phone] [Mass/Vol]6.8 g/dLNormal6.3-8.2[facility] Comment on above:Performed By: #### CMP #### [place] [address] Ph. [phone] [Moles/Vol]135 mmol/MMsrhqe421-401RegkaxyAdena Regional Medical CenterComment on above:Performed By: #### CMP #### [place] [address] Ph. [phone] nitrogen [Mass/Vol]23 mg/dLHigh9-20WAdena Regional Medical CenterComment on above:Performed By: #### CMP #### [place] [address] Ph. [phone] REVIEWon 04-47-4813BQQF REVIEWDIFFCOM: see commentsNormal [facility] HospitalComselect specialty hospital-pontiac on above:Order Comment: slide review rbc agglutination notedPerformed By: #### DIFF, CBCAD #### [place] [address] Ph. [phone] - Chemistry and Chemistry - challengeon 10-30-2022 Natriuretic peptide B (Bld) [Mass/Vol]93 pg/mL0 - 100 pg/mLWYANDOTAlbumin [Mass/Vol]3.6 g/dL3.5 - 5.0 g/dLWYANDOTALP (Bld) [Catalytic activity/Vol]85 U/L 38 - 126 U/LWYANDOTALT [Catalytic activity/Vol]70 U/LHigh0 - 50 U/LWYANDOTAST [Catalytic activity/Vol]38 U/L17 - 59 U/LWYANDOTBilirubin [Mass/Vol]0.9 mg/dL0.2 - 1.3 mg/dLWYANDOTCalcium [Mass/Vol]8.9 mg/dL8.4 - 10.2 mg/dLWYANDOTChloride [Moles/Vol]102 mmol/LWYANDOTCO2 [Moles/Vol]25 mmol/LWYANDOTCreatinine [Mass/Vol] 1.02 mg/dL0.66 - 1.25 mg/dLWYANDOTGlucose [Mass/Vol]103 mg/nPNrno11 - 100 mg/dL WYANDOTPotassium [Moles/Vol]4.5 mmol/LWYANDOTProtein [Mass/Vol]6.8 g/dL6.3 - 8.2 g/dLWYANDOTSodium [Moles/Vol]135 mmol/LWYANDOTUrea nitrogen (BldV) [Mass/Vol]23 mg/dLHigh9 - 20 mg/dLWYANDOTLaboratory - Hematology and Cell countson 10-90-4325Wadhzwlts (Bld) [#/Vol]0.0 10*3/uLWYANDOTBasophils/100 WBC (Bld)0 %0 - [...] [#/Vol]11.6 10*3/uLHighWYANDOTLaboratory - Microbiology and Antimicrobial susceptibilityon 81-86-8833UXBI-CoV-2 (COVID-19) RNA OREN+probe Ql (Unsp spec)Not detectedNot DetectedWYANDOTNo Panel Informationon 22-47-5348Urfgxhaunb by PCR Not detectedNot DetectedWYANDOTBordetella Parapertussis (OE1199)Not detectedNot DetectedWYANDOTBordetella Parapertussis (ptxP)Not detectedNot DetectedWYANDOT Chlamydia [...] DetectedWYANDOTWYANDOTDiff Commentsee comments WYANDOTslide review rbc agglutination notedWBLUFFTON HOSPITALWAMERICAN HEALTHCARE SYSTEMS Eosinophils Absolute0.2WYANDOTInterpretation and review of laboratory results AbnormalWYANDOTLymphocytes Absolute0.7LowWYANDOTMonocytes Absolute0.8WYANDOT Neutrophils Absolute9.8HighWYANDOTresuts after 30 minutes of incubation at 37degree C possible cold rbc agglutinationWBLUFFTON HOSPITALWCOBALT REHABILITATION (TBI) HOSPITALDOTWCOBALT REHABILITATION (TBI) HOSPITALDOT 1. Questionable left infrahilar infiltrate. 2. Slight bibasilar atelectasis. 3. Chronic changes and findings of COPD. [facility] CONSOLIDATEDEXAM: XR CHEST PORTABLE HISTORY: [...] region. Report electronically signed by: Dr. Dashawn DaiNATIONAL PARK [facility] ALIDASilkDashawn, DO - 10/30/2022 EXAM: [...] 3. Chronic changes and findings of COPD. Wonderswamp Phone: GFR, Tujsumoqo92- PINFWYANDOTComment on above: GFR calculated using CKD-EPI (2020) formula. Stage 1 Kidney damage (e.g., protein in the urine) with normal GFR >=90 Stage 2 Kidney damage with mild decrease in GFR 60-89 Stage 3a Moderate decrease in GFR 45-59 Stage 3b Moderate decrease in GFR 30-44 Stage 4 Severe reduction in GFR 15-29 Stage 5 Kidney failure <15 Interpretation and review of laboratory resultsAbnormalWAMERICAN HEALTHCARE SYSTEMSWPSYCHIATRIC HOSPITALTRadiology Study observation (narrative)[facility] Work Phone: No Panel InformationOrdered By: Dashawn Dai on 42-02-3704SYLULPP Work Phone: Respiratory Panelon 52-43-8829FrhokinuduTqb detected NormalNot DetectedCleveland Clinic Mentor HospitalComment on above:Performed By: #### RESPAN #### [address] [address] Ph. [phone] Parapertussis ([id number])Not detectedNormalNot Detected [facility] HospitalComment on above:Performed By: #### RESPAN #### [address] [address] Ph. [phone] Parapertussis (ptxP)Not detectedNormalNot Detected [facility] HospitalComment on above:Performed By: #### RESPAN #### [address] [address] Ph. [phone] PneumoniaeNot detectedNormalNot DetectedWAdena Regional Medical CenterComment on above:Performed By: #### RESPAN #### [address] [address] Ph. [phone] 229ENot detectedNormalNot DetectedWAdena Regional Medical CenterComment on above:Performed By: #### RESPAN #### [address] [address] Ph. [phone] PSI4Vsg detectedNormalNot DetectedWAdena Regional Medical CenterComment on above:Performed By: #### RESPAN #### [address] [address] Ph. [phone] VB47Uak detectedNormalNot DetectedWAdena Regional Medical CenterComment on above:Performed By: #### RESPAN #### [address] [address] Ph. [phone] NF29Bnq detectedNormalNot DetectedWAdena Regional Medical CenterComment on above:Performed By: #### RESPAN #### [address] [address] Ph. [phone]-2 RPNot detectedNormalNot DetectedWAdena Regional Medical Center Comment on above:Performed By: #### RESPAN #### [address] [address] Ph. [phone] MetapneumovirusNot detectedNormalNot DetectedWAdena Regional Medical CenterComment on above:Performed By: #### RESPAN #### [address] [address] Ph. [phone] Rhinovirus/EnterovirusNot detectedNormalNot Detected [facility] HospitalComment on above:Performed By: #### RESPAN #### [address] [address] Ph. [phone] ANot detectedNormalNot DetectedWAdena Regional Medical CenterComment on above:Performed By: #### RESPAN #### [address] [address] Ph. [phone] BNot detectedNormalNot DetectedWAdena Regional Medical CenterComment on above:Performed By: #### RESPAN #### [address] [address] Ph. [phone] PneumoniaeNot detectedNormalNot DetectedWAdena Regional Medical CenterComment on above:Performed By: #### RESPAN #### [address] [address] Ph. [phone] Virus 1Not detectedNormalNot DetectedWAdena Regional Medical CenterComment on above:Performed By: #### RESPAN #### [address] [address] Ph. [phone] Virus 2Not detectedNormalNot DetectedWAdena Regional Medical CenterComment on above:Performed By: #### RESPAN #### [address] [address] Ph. [phone] Virus 3Not detectedNormalNot DetectedWAdena Regional Medical CenterComment on above:Performed By: #### RESPAN #### [address] [address] Ph. [phone] Virus 4Not detectedNormalNot DetectedWAdena Regional Medical CenterComment on above:Performed By: #### RESPAN #### [address] [address] Ph. [phone] Syncytial VirusNot detectedNormalNot DetectedWAdena Regional Medical CenterComment on above:Performed By: #### RESPAN #### [address] [address] Ph. [phone] CHEST PORTABLEon 89-81-6717TE CHEST PORTABLERADRPT EXAM: XR CHEST PORTABLE HISTORY: [...] Signed by: Dashawn Dai DO 10/30/22 Final resultNoSelect Medical Specialty Hospital - YoungstownXR Chest 2 Views*on 94-69-3972GP Chest 2 Views*Findings: Median sternotomy. Cardiopericardial silhouette normal. Aorta calcified and tortuous. Pulmonary vasculature normal. Lungs hyperinflated. Scarring left lung base. Mild blunting right costophrenic angle. IMPRESSION: Small right pleural effusion versus pleural thickening. Emphysema. Report reported and signed by Joe Davis on 10/27/2022 1621NormalNortwinslow indian healthcare centern [facility] SpecialistCreatinine and Glomerular filtration rate.predicted panel (S/P/Bld)Ordered By: Cristian Beaver on 91-24-6986Tybbgyrycl [Mass/Vol]1.16 mg/dL0.64-1.27Flower HospitalEstimated glomerular filtration rate (GFR) non- AmericanOrdered By: Cristian Beaver on 55-47-8863DOS/1.73 sq M.predicted among non-blacks MDRD (S/P/Bld) [Vol rate/Area]60 mL/Min Flower HospitalNo Panel InformationOrdered By: Cristian Beaver on 29-44-9081Awpsedzda GFR ()> 60 mL/MinFlower HospitalComment on above:GFR estimated reference range: According to KDOQI guidelines, <60 ml/min/1.73m2 is sufficient todiagnose a patient with chronic kidney disease.Pharmacy Creatinine Clearance (Chem64.62[facility] Rittman Medical Centererum or plasma urea nitrogen measurement (mass/volume)Ordered By: Cristian Beaver on 31-57-9332Tupc nitrogen [Mass/Vol]14 mg/dL9-Flower HospitalCOVID-19, MolecularOrdered By: Freddie Avila on 61-92-7257MQOK-CoV-2 (COVID-19) RNA OREN+probe Ql (Resp)Not detectedNot Detected [facility] Angiogram Abdominal Aorta With Lower Extremityon 04-15-2022 [...] 5. Chronic findings including severe pancolonic diverticulosis. NELYD[employer] Workstation ID: [id number] RISEXAMINATION: CT ANGIOGRAM ABDOMINAL [...] common femoral artery and profunda. The left [place] SFA is occluded with extension through the [...] common femoral artery and profunda. The left [place] SFA is occluded with extension through the [...] 5. Chronic findings including severe pancolonic diverticulosis. SZ[employer] Workstation ID: [id number] [facility] Angiogram Abdominal Aorta With Lower ExtremityOrdered By: Chad Lezama on 43-84-9128SjfpZmgcrw Work Phone: [phone]-UfF-2 (COVID-19) RNA OREN+probe Ql (Resp)Ordered By: Freddie Avila on 06-02-5833Oqvgvhsglrxwdh and review of laboratory results NormalOhioHealthThis test [...] at the following links: For Healthcare Providers: https://www.fda.gov/media/867612/download For Patients: https://www.fda.gov/media/349459/downloadOhioHealthOhioHealthBasic metabolic 2000 panelon 80-77-6208Xwqrx gap [Moles/Vol]16 mmol/L10 - 20 mmol/L OhioHealthCalcium [...] 25 mg/dLOhioHealthUrea nitrogen/Creatinine [Mass ratio]13.5 mg/mg10 - 20OhUK [facility] has implemented the eGFR calculation approach that does not have a coefficient for race that conforms to the NKF-ASN Task Force Recommendations.[facility] Children's HospitalCB Auto Differentialon 05-71-4822Jnlmrgumn (Bld) [#/Vol]0.03 10*3/uLOhioHealth Basophils/100 WBC (Bld)0.5 %OhioHealthEosinophils (Bld) [#/Vol]0.11 10*3/uL OhioHealthEosinophils/100 WBC (Bld)1.9 %OhioPomerene HospitalErythrocyte distribution width (RBC) [Entitic vol]13.7 %11.6 - 14.8 %North DakotaHealthHematocrit (Bld) [Volume fraction]41.7 %41 - 53 %OhioHealthHemoglobin [...] laboratory resultsAbnormalOhioHealthLymphocytes (Bld) [#/Vol]0.85 10*3/uLLowOhioHealthLymphocytes/100 WBC (Bld)14.9 %[facility] MCH (RBC) [Entitic mass]31.3 pg26 - 34 pgOhioHealthMCHC (RBC) [Mass/Vol]33.6 g/dL31 - 37 g/dLOhioHealthComment on above:Cold Agglutinin presentMCV (RBC) [Entitic vol]93.3 fL80 - 100 fLOhioHealthMonocytes (Bld) [#/Vol]0.66 10*3/uL OhioHealthMonocytes/100 WBC (Bld)11.6 %OhioHealthNeutrophils (Bld) [#/Vol]4.01 10*3/uLOhioHealthNeutrophils/100 WBC (Bld)70.6 %OhioPomerene HospitalNucleated RBC (Bld) [#/Vol]0.00 10*3/uLOhioHealthNucleated RBC/100 WBC (Bld) [Ratio]0.0 %[facility] Platelet mean volume (Bld) [Entitic vol]10.6 fL9.4 - 12.4 fLOhioHealthPlatelets (Bld) [#/Vol]179 10*3/uLOhioHealthRBC (Bld) [#/Vol]4.47 10*6/uLLowOhioHealthWBC (Bld) [#/Vol]5.69 10*3/uLOhioHealthOhioHealthCT Angiogram Abdominal Aorta With Lower Extremityon 00-42-6337Uyzydmhat Study observation (narrative)OhioHealthINR Coag (PPP) [Relative time]on 18-87-9953Nrheueygsibiqi and review of laboratory resultsNormalOOhio State Health SystemealthPT Coag (PPP) [Time]13.7 sOhioHealthDuring the induction phase of oral anticoagulation, the INR may not reflect the anticoagulation stat us of the patient. Therapeutic ranges for INR's are: Most clinical situations: INR 2.0-3.0 Mechanical Prosthetic Valve: INR 2.5-3.5 Critical: INR >5.0OhioHealthOhioHealthLavender Topon 42-16-3058Rhzdj TubeHold for add-ons.OhioHealthComment on above:Auto resulted.Mint Green Topon 04-14-2022 Extra TubeHold for add-ons.OhioHealthComment on above:Auto resulted.MannyHealthNo Panel Informationon 30-37-7118Rtzlo TubeHold for add-ons.OhioHealthComment on above:Auto resulted.OhioHealthOhioHealthPT/INRon 79-28-7200RSN Coag (PPP) [Relative time]1.1 {INR}0.8 - 1.1OhioHealthUS Doppler ankle/brachial indexon 90-43-4900Xvsxkdz Info Name: TRISTIN POWELL Age: 82 years : 1940 Gender: Male Exam Date: 04/14/2022 9:45 PM 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 Flow Coat: Justyna Keita, INOCENCIO, RDMS Attending Physician: CARSON BROCK Indications I73.9 - Peripheral vascular disease, unspecified Procedure Description 03043 Limited bilateral noninvasive physiologic studies of upper [...] Date: 04/14/2022 9:45 PM 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 Doppler ankle/brachial indexOrdered By: Richard Proctor on 42-66-3049YdmiTlfxiu Work Phone: us Venous, Unilat, Lower Ext Righton 80-88-5879FY Venous, Unilat, Lower Ext RightHISTORY: Pain, swelling. [...] and signed by Nabor Beard on 04/14/2022 1546NormalNoatrium health clevelandn [facility] SpecialistCREATININEon 61-41-4026Cxdsfqnjli [Mass/Vol]1.32 mg/dL Critically high0.70-1.30The [facility]ermont County HospitalComment on above:Performed By: #### CREA #### [facility] [address] [address] [address] Benedict PatelGFR-AF JAMAICAN>60Normal>=60The [facility]erm[facility] County HospitalComment on above:Performed By: #### CREA #### [facility] [address] [address] [address] Mcmullen ChangEGFR-NON AF JAMAICAN>60Normal>=60The [facility] County HospitalComment on above:Performed By: #### CREA #### [facility] [address] [place] [address] Dr. Mcmullen ChangCT CHEST WO W CONon 67-68-5862PC CHEST WO W CONEXAMINATION: CT CHEST WO [...] Electronically authenticated by: MIKEY CALDWELL Date: 2022-01-28 17:14[facility] Auto Differentialon 53-67-4188Qimdwvnzm (Bld) [#/Vol]0.02 10*3/uLOhioHealthBasophils/100 WBC (Bld)0.5 %OhioHealthEosinophils (Bld) [...] 10*6/uLLowOhioHealthWBC (Bld) [#/Vol]4.08 10*3/uLLowOhioHealthOhioHealthBasic metabolic 2000 panelon 14-51-2241Azaqe gap [Moles/Vol]13 mmol/L10 - 20 mmol/LOhioHealthCalcium [Mass/Vol]9.2 mg/dL8.4 - 10.2 mg/dLOhioHealthChloride [Moles/Vol]107 mmol/L98 - 108 mmol/LOhioHealth Creatinine [Mass/Vol]0.93 mg/dL0.80 - 1.30 mg/dLOhioHealthGFR/1.73 sq M.predicted CKD-EPI (S/P/Bld) [Vol rate/Area]76- PINFOhioHealthGlucose [Mass/Vol]89 mg/dL65 - 99 mg/dLOhioHealthHCO3 [Moles/Vol]25 mmol/L21 - 32 mmol/L [facility] HospitalInterpretation and review of laboratory resultsNormalOhioHealth Potassium [Moles/Vol]4.3 mmol/L3.5 - 5.1 mmol/LOhioHealthSodium [Moles/Vol]141 mmol/L135 - 145 mmol/LOhioHealthUrea nitrogen [Mass/Vol]12 mg/dL8 - 25 mg/dL OhioHealthUrea nitrogen/Creatinine [Mass ratio]12.9 mg/mg10 - 20OhioHealthThe eGFR should be used for monitoring renal function only and not for medication dosing.[facility] HospitalioPomerene HospitalCBC Auto Differentialon 40-09-2316Anngyobgn (Bld) [#/Vol]0.02 10*3/uLOhioHealthBasophils/100 WBC (Bld)0.4 %OhioHealthEosinophils (Bld) [#/Vol]0.18 10*3/uLOhioHealthEosinophils/100 WBC (Bld)3.8 %[facility] Erythrocyte distribution width (RBC) [Entitic vol]15.0 %High11.6 - 14.8 % [facility] DakotaHealthHematocrit (Bld) [Volume fraction]41.6 %41 - 53 %[facility] HospitalHemoglobin (Bld) [Mass/Vol]13.7 g/dL13.5 - 17.5 g/dLOhioHealthImmature granulocytes (Bld) [#/Vol]0.02 10*3/uLOhioHealthImmature granulocytes/100 WBC (Bld)0.40 %[facility] Comment on above:The IG parameter is the percentage of metamyelocytes, myelocytes and promyelocytes. An immature granulocyte count (IG) of 1% or more suggests the possibility of infection, an IG count of 3% is very likely related to an infection.Interpretation and review of laboratory resultsAbnormal OhioPomerene HospitalLymphocytes (Bld) [#/Vol]0.65 10*3/uLLowOhioHealthLymphocytes/100 WBC (Bld)13.7 %[facility] HospitalMCH (RBC) [Entitic mass]31.5 pg26 - 34 pgOhioHealthMCHC (RBC) [Mass/Vol]32.9 g/dL31 - 37 g/dLOhioHealthComment on above:Cold Agglutinin presentMCV (RBC) [Entitic vol]95.6 fL80 - 100 fLOhioHealthMonocytes (Bld) [#/Vol]0.57 10*3/uLOhioHealthMonocytes/100 WBC (Bld)12.0 %[facility] DakotaHealthNeutrophils (Bld) [#/Vol]3.32 10*3/uLOhioHealthNeutrophils/100 WBC (Bld)69.7 %[facility] Nucleated RBC (Bld) [#/Vol]0.00 10*3/uLOhioHealthNucleated RBC/100 WBC (Bld) [Ratio]0.0 %[facility] HospitalPlatelet mean volume (Bld) [Entitic vol]10.9 fL9.4 - 12.4 fLOhioHealthPlatelets (Bld) [#/Vol]132 10*3/uLLowOhioHealthRBC (Bld) [#/Vol]4.35 10*6/uLLowOhioHealthComment on above:Peripheral smear reviewed manuallyWBC (Bld) [#/Vol]4.76 10*3/uLOhioHealthOhioHealthBasic metabolic 2000 panelon 39-46-0163Alhia gap [Moles/Vol]15 mmol/L10 - 20 mmol/LOhioHealthCalcium [Mass/Vol]8.4 [...] mg/dLOhioHealthUrea nitrogen/Creatinine [Mass ratio]12.0 mg/mg10 - 20 OhioPomerene HospitalThe eGFR should be used for monitoring renal function only and not for medication dosing.[facility] HospitalioHealthCBC Auto Differentialon 01-19-2022 Basophils (Bld) [#/Vol]0.02 10*3/uLOhioHealthBasophils/100 WBC (Bld)0.4 % OhioHealthEosinophils (Bld) [#/Vol]0.11 10*3/uLOhioHealthEosinophils/100 WBC (Bld)2.1 %[facility] HospitalErythrocyte distribution width (RBC) [Entitic vol]15.1 %High 11.6 - 14.8 %[facility] HospitalHematocrit (Bld) [Volume fraction]36.8 %Low41 - 53 [...] AORTA/BRANCH VESSELS: Moderate aortic calcification without aneurysm. Qxtc-pb-ccvbebws atherosclerosis involving the iliac vessels without aneurysm or significant stenosis. LLE: The left common femoral to tibioperoneal trunk bypass graft is patent. 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 Again seen is [...] AORTA/BRANCH VESSELS: Moderate aortic calcification without aneurysm. Ibmq-sx-rxhmrkir atherosclerosis involving the iliac vessels without aneurysm or significant stenosis. LLE: The left common femoral to tibioperoneal trunk bypass graft is patent. 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 Again seen is [...] findings as described above. Workstation ID: [id number] [facility] HospitalRadiology Study observation (narrative)[facility] Abdominal Aorta With Lower ExtremityOrdered By: Matilda Cheng on 88-22-7535XxjeTarqym Work Phone: CT Chest Without Contraston 01-19-2022 [...] 2017. Laura Polo, et al. January 2017. [employer] Workstation ID: [id number] RISEXAMINATION: CT CHEST WITHOUT [...] noted with dense calcifications seen throughout the [place] coronary arteries along with coronary arterial stents. [...] noted with dense calcifications seen throughout the [place] coronary arteries along with coronary arterial stents. [...] 2017. Laura Polo et al. January 2017. [employer] Workstation ID: [id number] [facility] HospitalRadiology Study observation (narrative)OhioPomerene HospitalCT Chest Without ContrastOrdered By: Rajiv Oscar on 04-48-6360JronGgttqj Work Phone: ecg 12 Leadon 81-70-6610Zppvhr Xjry11EYRWqhzZnhucbW Lary-30avvljexYeqrMuyhckN-E Scdsnbzk006 msOhioHealthQ-T Xtorvfnx123 msOhioHealth QRS Fmsofsqa03 msOhioHealthQTC Calculation (Bezet)461 msOhioHealthR Axis39 degreesOhioHealthT Hroc09exmrvtwBrouZfhmwfWqhcyvfpcjk Wriq24MFQHosiXjozksMzoqg rhythm with occasional Premature ventricular complexes Otherwise normal ECG Confirmed by Clark Donovan M.D. ([id number]) on 01/19/2022 10:38:16 AMMUSEOhioHealthEKGon 53-73-1274Rkyovbr by an unspecified provider.OhioPomerene HospitalOhioHealthOrdered by an unspecified provider.[facility] HospitalioPomerene HospitalBasic metabolic 2000 panelon 01-18-2022 Anion gap [Moles/Vol]13 mmol/L10 - 20 mmol/LOhioHealthCalcium [Mass/Vol]9.2 mg/dL8.4 - 10.2 mg/dLOhioHealthChloride [Moles/Vol]103 mmol/L98 - 108 mmol/L OhioHealthCreatinine [Mass/Vol]1.10 mg/dL0.80 - 1.30 mg/dLOhioHealthGFR/1.73 sq M.predicted CKD-EPI (S/P/Bld) [Vol rate/Area]62- PINFOhioHealthGlucose [Mass/Vol]107 mg/nBRquq15 - 99 mg/dLOhioHealthHCO3 [Moles/Vol]26 mmol/L21 - 32 mmol/LOhioHealthPotassium [Moles/Vol]4.2 mmol/L3.5 - 5.1 mmol/LOhioHealthSodium [Moles/Vol]138 mmol/L135 - 145 mmol/LOhioHealthUrea nitrogen [Mass/Vol]14 mg/dL8 - 25 mg/dLOhioHealthUrea nitrogen/Creatinine [Mass ratio]12.7 mg/mg10 - 20 OhioPomerene HospitalThe eGFR should be used for monitoring renal function only and not for medication dosing.[facility] Auto Differentialon 14-72-1681Uuhdbcahw (Bld) [#/Vol]0.02 10*3/uLOhioHealthBasophils/100 WBC (Bld)0.3 %OhioHealthEosinophils (Bld) [#/Vol]0.14 10*3/uLOhioHealthEosinophils/100 WBC (Bld)2.1 %[facility] Erythrocyte distribution width (RBC) [Entitic vol]15.3 %High11.6 - 14.8 % [facility] HospitalHematocrit (Bld) [Volume fraction]39.2 %Low41 - 53 %[facility] Hemoglobin (Bld) [Mass/Vol]14.0 g/dL13.5 - 17.5 g/dLOhioHealthImmature granulocytes (Bld) [#/Vol]0.02 10*3/uLOhioHealthImmature granulocytes/100 WBC (Bld)0.30 %[facility] HospitalComment on above:The IG parameter is the percentage of metamyelocytes, myelocytes and promyelocytes. An immature granulocyte count (IG) of 1% or more suggests the possibility of infection, an IG count of 3% is very likely related to an infection.Interpretation and review of laboratory results AbnormalOhioHealthLymphocytes (Bld) [#/Vol]0.75 10*3/uLLowOhioHealth Lymphocytes/100 WBC (Bld)11.1 %[facility] HospitalMCH (RBC) [Entitic mass]33.3 pg26 - 34 pgOhioHealthMCHC (RBC) [Mass/Vol]35.7 g/dL31 - 37 g/dLOhioHealthMCV (RBC) [Entitic vol]93.1 fL80 - 100 fLOhioHealthMonocytes (Bld) [#/Vol]0.78 10*3/uL OhioHealthMonocytes/100 WBC (Bld)11.5 %OhioHealthNeutrophils (Bld) [#/Vol]5.05 10*3/uLOhioHealthNeutrophils/100 WBC (Bld)74.7 %OhioHealthNucleated RBC (Bld) [#/Vol]0.00 10*3/uLOhioHealthNucleated RBC/100 WBC (Bld) [Ratio]0.0 %[facility] Platelet mean volume (Bld) [Entitic vol]10.4 fL9.4 - 12.4 fLOhioHealthPlatelets (Bld) [#/Vol]150 10*3/uLOhioHealthRBC (Bld) [#/Vol]4.21 10*6/uLLowOhioHealthWBC (Bld) [#/Vol]6.76 10*3/uLOhioHealthOhioHealthCRP, Inflammationon 31-92-9623CQJ [Mass/Vol]63.5 mg/LHigh0 - 10 mg/LOhioHealthECG 12 Leadon 89-60-7479Azumnu Jagruti Mcguire MD 01/18/2022 11:27 PM ECG 12 Lead Date/Time: 01/18/2022 11:27 PM Performed by: Mikey Mcguire MD Authorized by: Mikey Mcguire MD Interpreted by ED attending physician Rhythm: sinus rhythm BPM: 76 Ectopy: PVCs Conduction: conduction normal ST Segments: ST segments normal T Waves: T waves normal Clinical impression: non-specific ECGOhioHealthOhioHealthESR Westergren method (Bld) [Velocity]on 45-78-7835STR (Bld) [Velocity]18 mm/hOhioHealthInterpretation and review of laboratory resultsNormalOhiSDealDelaware County HospitalioHealthGrey Topon 01-18-2022 Extra TubeHold for add-ons.North DakotaHealthComment on above:Auto resulted.OhioHealthNo Panel Informationon 05-50-8641Dyonv TubeHold for add-ons.[facility] DakotaHealthComment on above:Auto resulted.[facility] HospitalInterpretation and review of laboratory results AbnormalOhioHealthOhioHealthPOC Venous Blood Gases with Full PanelOrdered By: Elana Chavez on 27-92-7454Sbci excess Calc (BldV) [Moles/Vol]0.2 mmol/L-2 - 2 OhioHealthCalcium.ionized [Mass/Vol]4.7 mg/dL4.5 - 5.3 mg/dLOhioHealthChloride [Moles/Vol]104 mmol/L98 - 108 mmol/LOhioHealthCO2 (BldV) [Partial pressure]41.3 mm[Hg]OhioHealthCO2 [Moles/Vol]25 mmol/L21 - 32 mmol/LOhioHealthCreatinine [Mass/Vol]1.35 mg/dLHigh0.80 - 1.30 mg/tBNtwiDsxuxkGXZ01Npt- PINFOhioHealth Glucose [Mass/Vol]98 mg/dL65 - 99 mg/dLOhioHealthHematocrit [...] and not for medication dosing. OhioHealthOhioHealthPink Topon 02-37-7005PqqvPtnfobOL Ankle Left 3+ Views (Standard)on 35-55-0303ODIKZKRQ/ Distal fibula ORIF. Patient is status post [...] atherosclerotic soft tissue calcifications. Workstation ID: [id number] [facility] HospitalioPomerene HospitalRadiology Study observation (narrative)[facility] HospitalXR Tibia Fibula Left 2 Viewson 30-90-3542SUPCVJET/ Distal fibular ORIF without evidence of hardware [...] obvious large fluid collection. Workstation ID: [id number] [facility] HospitalRadiology Study observation (narrative)OhioPomerene HospitalXR Tibia Fibula Left 2 ViewsOrdered By: Mikey Huerta on 92-95-6302ApaeKawakl Work Phone: [facility] 17-70-2405IIHMGBHM BAS0.0 10*3/uLNormal0.0-0.2 [facility] HospitalComment on above:Result Comment: Testing performed at [place], [place] [address]Ffyitibvj By: #### ACBC #### Testing performed at [address] [address]WGQZEBLE EOS0.00 10*3/uLNormal0.0-0.7APro[facility] Comment on above:Performed By: #### ACBC #### Testing performed at [address] [address]PLMMQKUS NEUTROPHIL COUNT8.7 10*3/uLHigh1.4-6.5AProtestant Deaconess HospitalComment on above:Performed By: #### ACBC #### Testing performed at [address] [address]Wleevndrf/100 WBC (Bld)0.0 %Normal0.0-2.0[facility] Comment on above:Performed By: #### ACBC #### Testing performed at [address] [address]UDFVCUMOJ DIFFNormalAProtestant Deaconess HospitalComment on above: Performed By: #### ACBC #### Testing performed at [address] [address]Tncigmtfabm/100 WBC (Bld)0.0 %Normal0.0-11.0[facility] HospitalComment on above:Performed By: #### ACBC #### Testing performed at [address] [address]Qlumminzrwn (Bld) [#/Vol]0.40 10*3/uLLow1.2-3.4AProtestant Deaconess HospitalComment on above:Performed By: #### ACBC #### Testing performed at [address] [address]Zhqxbypdlof/100 WBC (Bld)4.2 %Low20.0-55.0[facility] Comment on above:Performed By: #### ACBC #### Testing performed at [address] [address]Ggiihmbbo (Bld) [#/Vol]0.9 10*3/uLHigh0.0-0.7AProtestant Deaconess HospitalComment on above:Performed By: #### ACBC #### Testing performed at [address] [address]Xkoykdogr/100 WBC (Bld)8.9 %Normal0.0-10.0[facility] Comment on above:Performed By: #### ACBC #### Testing performed at [address] [address]Dxrxllmmusk/100 WBC (Bld)86.9 %High37.0-75.0[facility] HospitalComment on above:Performed By: #### ACBC #### Testing performed at [address] [address]Yomjzkkbwka distribution width (RBC) [Ratio]15.4 %High11.5-14.5 [facility] HospitalComment on above:Performed By: #### ACBC #### Testing performed at [address] [address]Zfhudxncwj (Bld) [Volume fraction]34.2 %Low42.0-52.0[facility] HospitalComment on above:Performed By: #### ACBC #### Testing performed at [place] [address]Hemoglobin (Bld) [Mass/Vol]11.7 g/dLLow14.0-18.0[facility] HospitalComment on above:Performed By: #### ACBC #### Testing performed at [address] [address]MKW (RBC) [Entitic mass]31.4 bgNewnne62.0-35.0[facility] HospitalComment on above:Performed By: #### ACBC #### Testing performed at [address] [address]BADJ (RBC) [Mass/Vol]34.3 g/lOVnepgk66.0-37.0[facility] HospitalComment on above:Performed By: #### ACBC #### Testing performed at [address] [address]JLC (RBC) [Entitic vol]91.6 nVWuifsa81.0-100.0[facility] HospitalComment on above:Performed By: #### ACBC #### Testing performed at [address] [address]Nzeliwvr mean volume (Bld) [Entitic vol]8.2 fLNormal7.4-11.0 [facility] HospitalComment on above:Result Comment: Testing performed at [place] [id number] By: #### ACBC #### Testing performed at [place] [address]Platelets (Bld) [#/Vol]127 10*3/kKIxk160.0-400.0[facility] HospitalComment on above:Performed By: #### ACBC #### Testing performed at [address] [address]IEL (Bld) [#/Vol]3.73 10*6/uLLow4.0-6.1APro[facility]acon[facility] Comment on above:Performed By: #### ACBC #### Testing performed at [address] [address]QFM (Bld) [#/Vol]10.0 10*3/uLNormal3.6-11.0[facility] Comment on above:Performed By: #### ACBC #### Testing performed at [address] [address]UHGLA CORONAVIRUSon 64-42-3607HLVOOWQSXEjvn test was performed using isothermal OREN and has been approved as Emergency Use Authorization (EUA) for the qualitative detection liZPSN-BuF-9 nucleic acid.[facility] Medical CenterComment on above:Result Comment: Testing performed at [place] [address]Performed By: #### COVID #### Testing performed at [place] [address]SARS-CoV-2 (COVID-19) RNA OREN+probe Ql (Unsp spec)Not detected NormalNOT DETECTEDSt. Charles HospitalComment on above:Result Comment: Negative results do not [...] By: #### COVID #### Testing performed at [place] [address]TYPE AND SCREEN CROSSMATCH CONVERTIBLEon 09-58-0852BDIP AND SCREEN CROSSMATCH CONVERTIBLEWORKUP EXPIRES 07/18/2021,2359 ABO/RH(D) O POSITIVE ANTIBODY SCREEN NEGATIVE ARM BAND NUMBER [id number] Testing performed at [place], [place] [address]OmfakoOyclhCrownpoint Healthcare FacilityComment on above:Performed By: #### TSCC #### Testing performed at [address] [address]Jtxez Metabolic Panelon 26-27-4109Tvjnrsz [Mass/Vol]9.6 mg/dL Normal8.5-10.6[facility] Medical CenterChloride [Moles/Vol]105 mmol/LNormal 98-107[facility] Medical CenterCO2 [Moles/Vol]29 mmol/SKggjvs07-71Eipkt [facility] CenterCreatinine [Mass/Vol]0.99 mg/dLNormal0.70-1.30[facility] Medical CenterGlucose [Mass/Vol]92 mg/lTIrmglr25-48Fnlww [facility] CenterPotassium [Moles/Vol]4.6 mmol/LNormal3.5-5.1[facility] Hospitalodium [Moles/Vol] 142 mmol/LAiqubl318-511Xmjct [facility] Medical CenterUrea nitrogen (BldV) [Mass/Vol] 15 mg/dLNormal7.0-18.0[facility] Medical CenterUrea nitrogen/Creatinine [Mass ratio]15 mg/mgNormalMount [facility] At[facility] Medical CenterCBC with Differentialon 05-27-2020 Basophils (Bld) [#/Vol]0.0 thou/mcLNormal0.0-0.2[facility] Basophils/100 WBC (Bld)0.7 %Normal0-3[facility] Medical CenterDifferential cell count method Nom (Bld)AUTOMATED DIFFERENTIALNormalMount [facility] Eosinophils (Bld) [#/Vol]0.0 thou/mcLNormal0.0-0.4[facility] Eosinophils/100 WBC (Bld)1.2 %Normal0-7Mount [facility] Medical CenterLymphocytes (Bld) [#/Vol]0.6 thou/mcLLow0.7-4.5[facility] Medical CenterLymphocytes/100 WBC (Bld)18.3 %Gyyiqg10-77Fugfa [facility] CenterMonocytes (Bld) [#/Vol]0.5 thou/mcLNormal0.1-1.0[facility] CenterMonocytes/100 WBC (Bld)13.2 %High 4-13Mount [facility] Medical CenterNeutrophils (Bld) [#/Vol]2.3 thou/mcLNormal1.5-7.8 [facility] CenterNeutrophils/100 WBC (Bld)66.6 %Riwaet58-36Hpjga [facility] Medical CenterErythrocyte distribution width (RBC) [Entitic vol]16.1 %High 11.7-15.0[facility] Medical CenterHematocrit (Bld) [Volume fraction]38.2 % Hdyfuz34.0-50.0[facility] Medical CenterHemoglobin (Bld) [Mass/Vol]13.6 g/dL Qpncli14.5-17.0[facility] Medical CenterMCH (RBC) [Entitic mass]33.2 Picograms Oxpdbj51.0-34.0[facility] Medical CenterMCHC (RBC) [Mass/Vol]35.6 g/dLNormal 32.0-36.0[facility] Medical CenterMCV (RBC) [Entitic vol]93.2 fGTbaooq45-86 [facility] Medical CenterPlatelet mean volume (Bld) [Entitic vol]8.6 fLNormal 7.5-11.2[facility] Medical CenterPlatelets (Bld) [#/Vol]179 thou/mcLNormal 140-415[facility] Medical CenterComment on above:Result Comment: Verified by repeat analysisRBC (Bld) [#/Vol]4.10 x(10)6/mcLNormal3.80-5.60[facility] Medical CenterWBC (Bld) [#/Vol]3.5 thou/mcLLow4.0-10.5[facility] Comment on above:Result Comment: VERIFIED BY SLIDE REVIEWPartial Thromboplastin Time (aPTT)on 42-44-6993wJWG Coag (PPP) [Time]27.4 VmqWyullw33.2-34.6[facility] Medical CenterProthrombin Timeon 69-49-6754CLQ Coag (Bld) [Relative time] 1.1 {INR}NormalMount Premier Health Atrium Medical CenterComment on above:Result Comment: DURING THE INDUCTION PHASE OF ORAL ANTICOAGULATION, THE INR MAY NOT REFLECT THE ANTICOAGULANT STATUS OF THE PATIENT. THERAPEUTIC RANGES FOR INR'S ARE: MOST CLINICAL SITUATIONS: INR 2.0-3.0 MECHANICAL PROSTHETIC VALVES: INR 2.5-3.5 CRITICAL: INR 5.0PT Coag (PPP) [Time]14.5 SwlXmptek29.9-14.6[facility] Medical CenterUS DOPPLER CAROTIDon 21-73-6674Yui-Invasive Vascular Patient: SHERRY [facility] Rec#: [id number] (Age): 1940(80y) Study Date: 03/16/2020 Room#: Type: Outpatient Sex: M Reading: Radha Su DO, INOCENCIO, RPVI, FSVM Referring: Mohsen Sarabia MD, RPVI Insurance Agent: Angela Giron RVT, RDVT Procedure Info: [id number]... Study Quality: Diagnosis: I65.23 Occlusion and stenosis [...] EDT Non-Invasive Vascular Patient: SHERRY Jones Rec#: [id number] (Age): 1940(80y) Study Date: 03/16/2020 Room#: Type: Outpatient Sex: M Reading: Radha Su DO, RVT, NATANAEL, FSVM Referring: Mohsen Sarabia MD, NATANAEL Insurance Agent: Angela Giron RVT, RDMS Procedure Info: [id number]... 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 Lower [...] PM EDT Non-Invasive Vascular Patient: SHERRY [facility] Rec#: [id number] (Age): 1940(80y) Study Date: 03/16/2020 Room#: Type: Outpatient Sex: M Reading: Radha Su DO, RVT, NATANAEL, FSVM Referring: Mohsen Sarabia MD, NATANAEL Insurance Agent: Angela Giron RVT, RDMS Procedure Info: [id number] Study Quality: 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 Lower [...] 13:08:20 by: Radha Su DO, INOCENCIO, RPLUIZA, FSVMOhioPomerene HospitalPatient Portal Messageon 29-80-6594Ajxhxaj Portal Message--- --- --- --- --- --- --- --- --- From: Hospital, Patient Summary Visit To: TRISTIN POWELL Sent: 11/30/19 01:31:27 AM EDT Subject: New Results Available A summary regarding your recent visit is available in the Documents section of your Health Record.NormalMount Premier Health Atrium Medical CenterCBCon 10-17-3252Jilierwyhvc distribution width (RBC) [Entitic vol]14.3 %Guotmq95.7-15.0[facility] Medical CenterHematocrit (Bld) [Volume fraction]33.8 %Low34.0-50.0[facility] Medical CenterHemoglobin (Bld) [Mass/Vol]11.8 g/dNYcwvcv37.5-17.0[facility] HospitalH (RBC) [Entitic mass]31.4 GthfgfoujJjzgzi54.0-34.0[facility] Medical CenterMCHC (RBC) [Mass/Vol]35.0 g/bOBrdzvv94.0-36.0[facility] Medical CenterMCV (RBC) [Entitic vol]89.8 jDUdetwa04-56Pnyfx [facility] Medical CenterPlatelet mean volume (Bld) [Entitic vol]8.7 fLNormal7.5-11.2[facility] Platelets (Bld) [#/Vol]152 thou/owIDjmnmn697-137Epjnh [facility] Medical CenterRBC (Bld) [#/Vol]3.77 x(10)6/mcLLow3.80-5.60[facility] Medical CenterWBC (Bld) [#/Vol]10.2 thou/mcLNormal4.0-10.5[facility] Medical CenterOR Nursingon 68-78-7941LP NursingCO NA OR Nursing Record Summary Primary Physician: Ramana Cason MD Finalized Date/Time: 11/29/19 11:47:30 Pt. Name: TRISTIN POWELL/Sex: 1940 Male Med Rec #: [id number] Physician: Ramana Cason MD Financial #: [id number] Pt. Type: I Room/Bed: Admit/Disch: 11/28/19 05:01:00 - Institution: [place] NA OR Case Times Entry 1 Patient [...] , Nabor Role Performed Primary Surgeon Physician Lap Grinder Anesthesiologist Time In 11/28/19 06:30:00 11/28/19 06:55:00 [...] Quintana RN , Marichuy Montesinos Role Performed educational specialist educational specialist First Scrub Time In 11/28/19 06:30:00 11/28/19 [...] Zuniga MD , Ramana Ontiveros Role Performed [employer] Source Intelligence Dredge Pipe Installer Surgeon Time In 11/28/19 07:02:00 11/28/19 07:20:00 11/28/19 08:13:00 Time Out 11/28/19 09:18:00 11/28/19 08:16:00 11/28/19 08:32:00 Procedure Fusion Cervical Post Fusion Cervical Post Fusion Cervical Post with with with Decompression(Cervical) Decompression(Cervical) Decompression(Cervical) Attendee Comment pat hurto Relief Reason Last Modified By: Mary Kate Baptiste RN, RN , Mary Kate Danielle RN 11/28/19 09:16:36 11/28/19 09:16:36 11/28/19 09:16:36 CO NA OR General Case Fence Post Driver 1 OR CO NA 01 ASA Class [...] SILICONE Present on Arrival? No NATALIE 15FR [id number] Location POSTERIOR NECK Inserted By Ben Saha [...] BED WITH Oscar DIAZ , Ramana Ontiveros HARIRET FRAME; ARMS Ben Saha TUCKED AT SIDE [...] UNITS 1 VIAL POWDER VANCOCIN POWDER TOPICAL 15833-436-91 Medication Dosage 1 sheet 5000 UNITS 1 g Route of TOPICAL TOPICAL TOPICAL Administration Meds Administered By Ramana Cason MD, MD , Ramana BROWER , Ben Huerta [...] by Surgeon Implant Identification Description Lineum plugs [id number] Lineum screw 3.5x14mm BEHTEL LINEUM PRE-CURVED Type1 Occipital [id number] CERVICAL [id number] Special Assemblies Supervisor [employer] Catalog Number [id number] Lot Number na na na Serial Number [...] RN 11/28/19 09:16 Karen Giron RN 11/29/19 11:47NormalAshtabula County Medical CenterPatient Summaryon 03-65-8185Pgtwmgd SummaryPATIENT DISCHARGE INSTRUCTIONS If you are having an emergency and are not able to reach your physician, CALL 911 or go to the nearest emergency room and take this document with you. [facility] 11/29/19 11:09 [address] [place]. [address] PATIENT INFORMATION Name: TRISTIN POWELL [place] Address: [address] [address] Age: 79 Years Phone: [phone] : 1940 12:00 MRN: [facility][id number] Sex: Male Race: White Ethnicity: Not Hispan/Lat Admitted From: Clinic or [facility] Medical Service: Orthopedic Surgery Nurse Unit/Bed: (CO) [...] Date: Ramana Cason MD Orthopaedic Surg [address] [facility] [address] (1) Two Weeks Comment: Call for an Appointment Provider: Specialty: Address: Date: Flash Lovelace MD [place] [phone] (1) Follow-up as needed ALLERGIES: No Known [...] doses are changed, or new medications (including rlfy-jtk-ndsuneh products) are added. Ask your doctor if [...] suicide hotline, anytime day or night, at 7-191-266-IRGU. Important information about accessing your health information through the [place] [employer] patient portal If you initiated the self-registration process for [employer] during your stay, please check your personal email for an invitation to enroll in [employer] and complete the steps outlined in the email. If you would prefer to enroll while in the hospital, ask a member of your care team. We would be happy to assist you. If you have already enrolled in [employer], go to [email or web address] memorial [email or web address] to login and access your health information. Thank you for choosing [employer]. PATIENT EDUCATION Incentive Spirometer An incentive spirometer [...] 12/25/2007 Document Revised: 09/04/2015 Document Reviewed: 03/23/2015 [employer] Interactive Patient Education ?2016 [employer]. Venous Thromboembolism, Prevention A venous thromboembolism is [...] 08/02/2010 Document Revised: 05/08/2013 Document Reviewed: 12/09/2015 [employer] Interactive Patient Education ?2016 [employer]. Preventing Constipation After Surgery Constipation is when [...] a bowel movement. ???Having hard, dry, or uuwdpc-poqu-qkqwvi stools. ???Feeling full or bloated. ???Having pain in the lower abdomen. ???Not feeling relief after having a bowel movement. HOME CARE INSTRUCTIONS Diet ???Eat foods that have a lot of fiber. These include fruits, vegetables, whole grains, and beans. Limit foods high in fat and processed sugars. These include english fries, hamburgers, cookies, and candy. ???Take a [...] softener, laxative, or fiber supplement. ???Only take dgdz-ajv-gpiznwk or prescription medicines as directed by your [...] 12/09/2013 Document Revised: 09/04/2015 Document Reviewed: 12/09/2013 [employer] Interactive Patient Education ?2016 [employer] Pain Medicine Instructions HOW CAN PAIN [...] liver damage. Acetaminophen is found in many rhep-lbn-ndzzrid (OTC) and prescription medicines. If you are [...] Reviewed: 06/18/2015 Elsevier Interactive Patient Education ?2016 [employer] PATIENT DISCHARGE INSTRUCTION Signature Page for: TRISTIN POWELL Date/Time: 11/29/2019 11:09:09 A Clinician has explained the information on my discharge instructions and has provided me with a copy. My questions have been answered to my satisfaction. Patient Signature Date/Time Responsible Party Date/Time Relationship to Patient Clinician Signature Date/Time NormalMount Premier Health Atrium Medical CenterTroponin Ion 45-90-9019Pjursjmz I.cardiac [Mass/Vol]0.03 ng/mLNormal<0.06Mount [facility] Medical CenterMagnesium Levelon 77-93-8001Jztcshicy [Mass/Vol]2.3 mg/dLNormal1.8-2.4[facility] PACU I Nursingon 06-24-4848VZWF I NursingCO NA PACU I Nursing Record Summary Primary Physician: Ramana Cason MD Finalized Date/Time: 11/28/19 10:38:07 Pt. Name: TRISTIN POWELL/Sex: 1940 Male Med Rec #: [id number] Physician: Ramana Cason MD Financial #: [id number] Pt. Type: I Room/Bed: / Admit/Disch: 11/28/19 [...] Signed By: Richie Huerta RN 11/28/19 10:38NormalMount Premier Health Atrium Medical CenterPreOp Nursingon 01-43-8933XwpJc NursingCO NA PreOp Nursing Record Summary Primary Physician: Ramana Cason MD Finalized Date/Time: 11/28/19 07:11:59 Pt. Name: SHERRYTRISTIN/Sex: 1940 Male Med Rec #: [id number] Physician: Ramana Cason MD Financial #: [id number] Pt. Type: I Room/Bed: / Admit/Disch: 11/28/19 [...] By: Mary Kate Baptiste RN 11/28/19 07:11NormalMount Premier Health Atrium Medical CenterTroponin Ion 75-09-4650Vdzcwuba I.cardiac [Mass/Vol]ng/mLNormal<0.06Mount [facility] Medical CenterTroponin I.cardiac [Mass/Vol]ng/mLNormal<0.06[facility] Basic Metabolic Panelon 53-01-2085Tkcjrad [Mass/Vol]9.6 mg/dLNormal8.5-10.6Mount [facility] Medical CenterChloride [Moles/Vol]105 mmol/IQuasxa65-682Ogzox [facility] Medical CenterCO2 [Moles/Vol]28 mmol/MBkxcac86-38Bvjvo [facility] Creatinine [Mass/Vol]1.12 mg/dLNormal0.70-1.30Mount [facility] Medical CenterGlucose [Mass/Vol]91 mg/mBFcpjzk63-81Ytxdr [facility] Medical CenterPotassium [Moles/Vol]4.9 mmol/LNormal3.5-5.1Mount [facility] Hospitalodium [Moles/Vol]141 mmol/LNormal 136-145Mount [facility] Medical CenterUrea nitrogen (BldV) [Mass/Vol]23 mg/dLHigh 7.0-18.0[facility] Medical CenterUrea nitrogen/Creatinine [Mass ratio]21 mg/mg NormalMount Premier Health Atrium Medical CenterCBC with Differentialon 00-02-2057Vmzxnviyx (Bld) [#/Vol]0.0 thou/mcLNormal0.0-0.2Mount [facility] Medical CenterBasophils/100 WBC (Bld)0.9 %Normal0-3Mount [facility] Medical CenterDifferential cell count method Nom (Bld)AUTOMATED DIFFERENTIALNormalMount Premier Health Atrium Medical CenterEosinophils (Bld) [#/Vol]0.1 thou/mcLNormal0.0-0.4Mount [facility] Medical CenterEosinophils/100 WBC (Bld)2.1 %Normal0-7Mount [facility] Atrium Medical CenterLymphocytes (Bld) [#/Vol]0.8 thou/mcLNormal0.7-4.5Mount [facility] Medical CenterLymphocytes/100 WBC (Bld)19.7 % Ndmeoq33-42Phkux [facility] Medical CenterMonocytes (Bld) [#/Vol]0.7 thou/mcLNormal 0.1-1.0Mount [facility] Medical CenterMonocytes/100 WBC (Bld)16.0 %High4-13Mount [facility] Medical CenterNeutrophils (Bld) [#/Vol]2.5 thou/mcLNormal1.5-7.8Mount [facility] Medical CenterNeutrophils/100 WBC (Bld)61.3 %Kbxwhs61-53Hwkqh [facility] Medical CenterErythrocyte distribution width (RBC) [Entitic vol]14.2 %Normal 11.7-15.0Mount [facility]rium Medical CenterHematocrit (Bld) [Volume fraction]39.8 % Gyfgtd80.0-50.0Mount [facility] Medical CenterHemoglobin (Bld) [Mass/Vol]13.8 g/dL Kqsjhi04.5-17.0Mount [facility] Atrium Medical CenterMCH (RBC) [Entitic mass]31.7 Picograms Gsflrz32.0-34.0Mount [facility] Medical CenterMCHC (RBC) [Mass/Vol]34.6 g/dLNormal 32.0-36.0[facility] Medical CenterMCV (RBC) [Entitic vol]91.6 bXVnhoik15-22 [facility] Medical CenterPlatelet mean volume (Bld) [Entitic vol]8.2 fLNormal 7.5-11.2Mount [facility] Atrium Medical CenterPlatelets (Bld) [#/Vol]191 thou/mcLNormal 140-415Mount [facility] Atrium Medical CenterRBC (Bld) [#/Vol]4.34 x(10)6/mcLNormal3.80-5.60 [facility] Medical CenterWBC (Bld) [#/Vol]4.1 thou/mcLNormal4.0-10.5Mount [facility] Atrium Medical CenterComment on above:Result Comment: VERIFIED BY SLIDE REVIEW Partial Thromboplastin Time (aPTT)on 72-03-9593vPLU Coag (PPP) [Time]28.5 Sec Jzvkaa96.2-34.6MMary Rutan HospitalProthrombin Timeon 98-36-7821TSS Coag (Bld) [Relative time]1.1 {INR}NormalMount Premier Health Atrium Medical CenterComment on above: Result Comment: DURING THE INDUCTION PHASE OF ORAL ANTICOAGULATION, THE INR MAY NOT REFLECT THE ANTICOAGULANT STATUS OF THE PATIENT. THERAPEUTIC RANGES FOR INR'S ARE: MOST CLINICAL SITUATIONS: INR 2.0-3.0 MECHANICAL PROSTHETIC VALVES: INR 2.5-3.5 CRITICAL: INR 5.0PT Coag (PPP) [Time]14.5 RbnEqhpkx01.9-14.6MMary Rutan HospitalCT Angiogram Abdominal Aorta With Lower Extremityon 24-96-2502Butbqx left femoral to tibioperoneal trunk bypass graft which bypasses an occluded [place] distal superficial femoral artery. Infrapopliteal peripheral arterial [...] artery:Single renal artery is present. There is xtjv-kv-pwesbxzr, 50-70%, narrowing of the ostium of the [...] femoral artery: There is occlusion of the [place] superficial femoral artery in its distal aspect [...] hips. There also degenerative changes in the spine.[facility] Valley HospitalInterfranciscan health, Rad In [place] - 10/21/2019 2:57 PM EST EXAMINATION: [...] artery:Single renal artery is present. There is nsah-fe-upnkellw, 50- 70%, narrowing of the ostium of [...] femoral artery: There is occlusion of the [place] superficial femoral artery in its distal aspect [...] trunk bypass graft which bypasses an occluded [place] distal superficial femoral artery. Infrapopliteal peripheral arterial [...] moderate hiatal hernia. Workstation ID: [id number] Creatinineon 47-52-4056Txqjknbewk [Mass/Vol] 1.1 mg/dL0.8 - 1.3 mg/dLOhioHealthInterpretation and review of laboratory resultsNormalOhioHealthUltrasound ankle / brachial indices extremity completeon 22-69-8837Uoy-Invasive Vascular Patient: SHERRY [facility]an [facility] Rec#: [id number] (Age): 1940(79y) Study Date: 10/09/2019 Room#: Type: Outpatient Sex: M Reading: Nemo Conner MD, PhD, RVT Referring: Mohsen Sarabia MD, RPVI Insurance Agent: Andre Madrid RDCS/RVT Procedure Info: [id number] Study Quality: Lower Arterial Doppler: adequate Diagnosis: [...] 15:10:46 by: Nemo Conner MD, PhD, RVT [facility], Rad In Heartlab Xper Echopacs - 10/09/2019 4:01 PM EST Non- Invasive Vascular Patient: SHERRY Jones Rec#: [id number] (Age): 1940(79y) Study Date: 10/09/2019 Room#: Type: Outpatient Sex: M Reading: Nemo Conner MD, PhD, RVT Referring: Mohsen Sarabia MD, RPVI Insurance Agent: Andre Madrid RDCS/RVT Procedure Info: [id number] Study Quality: Lower Arterial Doppler: adequate Diagnosis: [...] MD, PhD, RVTOhioHealthUltrasound duplex arterial leg lefton 89-35-5965Bmn-Invasive Vascular Patient: SHERRY [facility] Rec#: [id number] (Age): 1940(79y) Study Date: 10/09/2019 Room#: Type: Outpatient Sex: M Reading: Nemo Conner MD, PhD, RVT Referring: ALENA Insurance Agent: Andre Madrid RDCS/RVT Procedure Info: [id number] Study Quality: Graft Duplex: adequate Diagnosis: I73.9 Peripheral vascular disease, unspecified Graft Duplex Conclusions Left: Patent femoral to peroneal artery bypass graft with no evidence of hemodynamically significant stenosis. The procedure was explained to the patient. The patient voiced understanding. Measurements Left PSV Name Value Units EIA 151 cm/sec AIR DUCT MECHANIC 115 cm/sec Left Graft #1 PSV Name Value Units Inflow Artery 76.8 cm/sec Prox Anastomosis 102 cm/sec Prox Graft 80.7 cm/sec Mid Graft 60.3 cm/sec Dist Graft 69.6 cm/sec Dist Anastomosis 44.1 cm/sec Outflow Artery 72.1 cm/sec History CAD. Hypertension. History Comments:Left transmetatarsal amputation. Electronically signed at 10/09/2019 15:14:54 by: Nemo Conner MD, PhD, T [facility], Rad In Heartlab [facility] - 10/09/2019 4:01 PM EST Non- Invasive Vascular Patient: SHERRY Bazan Med Rec#: [id number] (Age): 1940(79y) Study Date: 10/09/2019 Room#: Type: Outpatient Sex: M Reading: Nemo Conner MD, PhD, RVT [facility] Agent: Andre Madrid RDCS/RVT Procedure Info: [id number] Study Quality: Graft Duplex: adequate Diagnosis: I73.9 Peripheral vascular disease, unspecified Graft Duplex Conclusions Left: Patent femoral to peroneal artery bypass graft with no evidence of hemodynamically significant stenosis. The procedure was explained to the patient. The patient voiced understanding. Measurements Left PSV Name Value Units EIA 151 cm/sec AIR DUCT MECHANIC 115 cm/sec Left Graft #1 PSV Name Value Units Inflow Artery 76.8 cm/sec Prox Anastomosis 102 cm/sec Prox Graft 80.7 cm/sec Mid Graft 60.3 cm/sec Dist Graft 69.6 cm/sec Dist Anastomosis 44.1 cm/sec Outflow Artery 72.1 cm/sec History CAD. Hypertension. History Comments:Left transmetatarsal amputation. Electronically signed at 10/09/2019 15:14:54 by: Nemo Conner MD, PhD, [facility] DOPPLER CAROTIDon 55-14-3779Lop-Invasive Vascular Patient: SHERRY [facility] Rec#: [id number] (Age): 1940(79y) Study Date: 03/18/2019 Room#: Type: Outpatient Sex: M Reading: Radha Su DO, RVT, NATANAEL, FSVM Referring: Mohsen Sarabia MD, NATANAEL Insurance Agent: Angela Giron RVT, [facility] Procedure Info: [id number]... Study Quality: Diagnosis: I65.23 Occlusion and stenosis [...] RVT, RPVI, FSVMOhioHealthInterface, Rad In Heartlab [facility] - 03/18/2019 10:30 AM EDT Non-Invasive Vascular Patient: SHERRY Jones Rec#: [id number] (Age): 1940(79y) Study Date: 03/18/2019 Room#: Type: Outpatient Sex: M Reading: Radha Su DO, RVT, RPVI, FSVM Referring: Mohsen Sarabia MD, RPVI Insurance Agent: Angela Giron RVT, RDMS Procedure Info: [id number]... 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 Lower [...] 03/13/2019 12:54:02 by: Meir Aguillon MD, VI [facility], [facility] In Heartlab Xper Echopacs - 03/13/2019 1:02 PM EDT Non- Invasive Vascular Patient: SHERRY [facility] Rec#: [id number] (Age): 1940(79y) Study Date: 03/13/2019 Room#: Type: Outpatient Sex: M Reading: Meir Aguillon MD, RPVI Reading: MOLILIANAC BURKE Referring: Mohsen Sarabia MD, RPVI Insurance Agent: Tiffany Millan RDCS,RVLatricia Procedure Info: [id number] Study Quality: Lower Arterial Doppler: adequate 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 Peter's Health PartnersChloride molar myxz314 mmol/JZuepbn60-082MpbswGrisell Memorial HospitalComment on above:Result Comment: Please note: Triglyceride levels of 600mg/dL or higher may positively bias chlorideresults by approximately 2.1 mmolCO2 molar conc28 mmol/GQomtam09-88RfagkGrisell Memorial HospitalCreatinine mass conc0.8 mg/dLNormal 0.7-1.2ACushing Memorial Hospital. GFR,>60NormalAvita Newark-Wayne Community HospitalEST. GFR,Non >60NormalAvita Bozeman HospitalGFR/1.73 sq M predicted among non-blacks MDRD vol rate/area (S/P/Bld)Average GFR for 70+ years old = 75.NormalAvita Newark-Wayne Community HospitalComment on above:Result Comment: Chronic Kidney disease, GFR = <60. Kidney failure, GFR = <15. The GFR estimate is not adjusted for extreme body surface area or acute process, nor has it been validated for women or ethnic groups other than and .Glucose mass conc95 mg/xNAxfszc43-372QfpeqGrisell Memorial HospitalComment on above:Result Comment: NORMAL <100 mg/dL PREDIABETES 101-126 mg/dL DIABETES 126 mg/dL or higherPotassium molar conc4.2 mmol/LNormal3.5-5.1ANorton County Hospitalodium molar tlgp078 mmol/DCzjwnh073-141RezbdGrisell Memorial Hospital Urea nitrogen mass conc10 mg/dLNormal7-20Grisell Memorial HospitalCBCon 10-31-2018 ABSOLUTE BAS0.0 E38NkayzlQsftoCleveland Clinic Hillcrest HospitalABSOLUTE EOS0.10 V95NekkaeYizojCleveland Clinic Hillcrest HospitalABSOLUTE NEUTROPHIL COUNT4.1 j74Tqxreb7.0-7.0Gr[facility]ell [facility] HospitalBasophils/100 WBC (Bld)0.5 %Normal0.0-2.0Grisell Memorial HospitalDTYPEAUTO DIFFCleveland Clinic Hillcrest HospitalEosinophils/100 WBC (Bld)1.1 %Normal0.0-11.0 [facility]ell Memorial HospitalLymphocytes #/vol (Bld)1.10 T10MauvdjXeudeCleveland Clinic Hillcrest HospitalLymphocytes/100 WBC (Bld)18.3 %Low20.0-55.0[facility] Monocytes #/vol (Bld)0.5 C72TvsheyZpffvCleveland Clinic Hillcrest HospitalMonocytes/100 WBC (Bld) 9.2 %Normal0.0-10.0Grisell Memorial HospitalNeutrophils/100 WBC (Bld)70.9 %Normal 37.0-75.0Grisell Memorial HospitalErythrocyte distribution width Ratio (RBC)16.0 % High11.5-14.5ARooks County Health CenterHematocrit Volume Fraction (Bld)33.3 %Low 42.0-52.0Grisell Memorial HospitalHemoglobin mass conc (Bld)11.4 g/dLLow14.0-18.0 [facility] Entitic mass (RBC)30.8 yvOeusww19.0-35.0[facility] HospitalHC mass conc (RBC)34.2 g/tXLcvbof97.0-37.0[facility] Clermont HospitalV Entitic volume (RBC)90.0 sSLvghay21.0-100.0[facility] HospitalPlatelet mean volume Entitic volume (Bld)7.6 fLNormal7.4-11.0Grisell Memorial HospitalPlatelets #/vol (Bld)271 /crpKxlxvs628.0-400.0Grisell Memorial HospitalRBC #/vol (Bld)3.69 /cmmLow4.0-6.1ARooks County Health CenterWBC #/vol (Bld)5.8 /cmmNormal3.6-11.0Grisell Memorial HospitalISTAT TROPONIN Ion 48-02-9997Nmgskcjy I.cardiac mass conc0.02 ng/mLNormal0-0.08Grisell Memorial HospitalTroponin I.cardiac mass conc0.03 ng/mL Normal0-0.08[facility] Doppler ankle/brachial indexon 10-31-2018 Amended Report Non-Invasive Vascular Patient: SHERRY TRISTIN [facility] Rec#: [id number] (Age): 1940(78y) Study Date: 10/31/2018 Room#: Type: Outpatient Sex: M Reading: Ben Hahn MD, RPLUIZA Reading: Campos Guerra M.D. Referring: Mohsen Sarabia MD, NATANAEL Insurance Agent: Sussy Hardin RVT Procedure Info: [id number]... Study Quality: Lower Arterial Doppler: limited Study [...] 10/31/2018 12:01:15 by: Ben Hahn MD, RPVI [facility] In Heartlab Xper Echopacs - 10/31/2018 12:05 PM EST Amended Report Non-Invasive Vascular Patient: SHERRY [facility] Rec#: [id number] (Age): 1940(78y) Study Date: 10/31/2018 Room#: Type: Outpatient Sex: M Reading: Ben Hahn MD, NATANAEL Reading: Campos Guerra M.D. Referring: Mohsen Sarabia MD, NATANAEL Insurance Agent: Sussy Hardin RVT Procedure Info: [id number]... Study Quality: Lower Arterial Doppler: limited Study [...] 10/31/2018 12:01:15 by: Ben Hahn MD, RPVI [facility] duplex arterial leg lefton 58-97-6950Vxd-Invasive Vascular Patient: SHERRY TRISTIN [facility] Rec#: [id number] (Age): 1940(78y) Study Date: 10/31/2018 Room#: Type: Outpatient Sex: M Reading: Campos Guerra M.D. Referring: ALENA Insurance Agent: Sussy Hardin RVT Procedure Info: [id number] Study Quality: Graft Duplex: adequate Diagnosis: I73.9 [...] vein graft, with proximal anastomosis at the AIR DUCT MECHANIC and distal anastomosis at the peroneal artery. Measurements Left PSV Name Value Units EIA 128 cm/sec AIR DUCT MECHANIC 111 cm/sec LAUREL - prox 0 cm/sec LAUREL - mid 0 cm/sec LAUREL - dist 0 cm/sec SENIOR BIOINFORMATICS SPECIALIST - mid 0 cm/sec SENIOR BIOINFORMATICS SPECIALIST - dist 0 cm/sec Peroneal - [...] at 10/31/2018 12:07:19 by: Campos Guerra M.D. [facility], Rad In Heartlab [facility] - 10/31/2018 12:09 PM EST Non-Invasive Vascular Patient: SHERRY [facility]an [facility] Rec#: [id number] (Age): 1940(78y) Study Date: 10/31/2018 Room#: Type: Outpatient Sex: M Reading: Campos Guerra M.D. Referring: ALENA Insurance Agent: Sussy Hardin RVT Procedure Info: [id number] Study Quality: Graft Duplex: adequate Diagnosis: I73.9 [...] vein graft, with proximal anastomosis at the AIR DUCT MECHANIC and distal anastomosis at the peroneal artery. Measurements Left PSV Name Value Units EIA 128 cm/sec AIR DUCT MECHANIC 111 cm/sec LAUREL - prox 0 cm/sec LAUREL - mid 0 cm/sec LAUREL - dist 0 cm/sec SENIOR BIOINFORMATICS SPECIALIST - mid 0 cm/sec SENIOR BIOINFORMATICS SPECIALIST - dist 0 cm/sec Peroneal - [...] signed at 10/31/2018 12:07:19 by: Campos Guerra M.D.[facility] Valley HospitalXR CHEST PA 1 VIEWon 61-78-3987GN CHEST PA 1 VIEWXR CHEST PA 1 [...] granulomatous disease. 3. Bibasilar atelectasis and/or scarring.NormalAvita Newark-Wayne Community HospitalCreatinine, Serumon 72-97-6971Mkdvvlfcna mass conc0.79 mg/dLLow0.8 - 1.3 mg/dLBlanchard Valley Health System [facility] GFR/1.73 sq M predicted among non-blacks MDRD vol rate/area (S/P/Bld)The eGFR should be used for monitoring renal function only and not for medication dosing. [facility] Bl[facility] Valley HospitalGFR/1.73 sq M.predicted CKD-EPI vol rate/area (S/P/Bld)85>=60 mL/min/1.73 e5NojtGbfsccTqmiywlrlvfhoy and review of laboratory resultsAbnormal [facility] EXAMon 01-90-2921Qwmx ReportSurgical Pathology Report Case: [id number] Authorizing Provider: Ben Jensen, Collected: 10/10/2018 01:05 PM Ordering Location: [facility] Received: 10/11/2018 08:07 AM Endoscopy Pathologist: Carson Carroll MD Specimens: A) - Duodenum, Second Portion B) - Gastroesophageal Junction [facility] Systeminical information r1zowMKsUXRgbRUxQlMiNQSySLHat9jsAJRkyMMyElRgZyZvFsAmNcuewCVaIZZnPmDjf3bxg860hHCk r4dtOESoIkN6qXJiFMEx nAAxJ043o9ycl1elaeClkUV1APHyDOE1KFclojRihtH8GSbwhIXxJwE3THxcanEcOYuczuBdtlFeYkb5 PWBiR989JQR9lJsvi3vn ERH2PYEjELAxVdXjYl5hlLJeX334KAXtKQXBMPKlcSv5HYBobqCcmzTatHWEm516I549o4slUEUydvVc vIaSlrsnt3jwN477SZLl hCMlrgAxGdKqODQcjJNrrNO7YRWjYR1ovdooOeLlBX5rytouZgPzBM6mxca9HCG7BIqpCSJuRrJ3QRRj xISmAEXguRotJAxhr750 YPG2HMtmk5jlp3ijrILsRps7CUDdBjLoPfepQIsej3Rpf7twEUQadh3zUFU1kZMlwPxtn4L0lVSmNWHt cNRwqcOvMIVgApA3SZwr NW6zdm39XLWhJCE8sb8tyDJtnQyrurBewMGcVHisE9QuDDBiw721TUJfF0JlNAOom7T5ihXjIlPlFQJw sXI7buV3PSGtIJr8dANf uwF4ofNldEHeR7lahB69DgJgpGJxN3XroK74UgVurFEaA0NefH1iBCVgEX2rftcwr6thLHV4IFtdWJQz QOX5AhVwBKIys8Ccibgr RETdq6EoL6FjcOucU70fiOkiW79mVANpjHpsvP3kkNqwoH9bPgEyFtCfZVgzjHtuiXEmhkqpRQnysrAt CRnmeggiUXUvJAteM7tm BoNxTCBgfCuzEQeaq8CjYTHnADVzZuJkD3upXhlpVVDqPKcwRMCmwVBuSHByTZ1rF98lcCWjQjbmRVso ObhfBMmlQFVpZkytrDS0GqWSTJZfw6HbxW9vJUKibl8=NhqlFficqbFqivicgwn report final diagnosis Narrative x3xgiJGjOSAfhRQpCuSyWLEgPFEoi5nzWKArwVStHvYrAtDjPhDgTjoymSFiOOBpCbEmx9sbe183lCQt c0wgWTJhOpG8iTXhLKNl yQIdB269AUYjQCxzt5hhu4SdJHGvdKKjg5C3XMFDflsmlJh6tYzsL04dp7O2YdbnS1wjAVFqABWmM0Uc MS5bPPOkXww1PTS1DSG4 NGYlGKXyT5CeUH7uKYHawIAbQSm1d5jazSsxXMTaBWV5y8ifCAbdkvMxGR9ijf0wlOv6u0ortbMlYXIf AUPuwOLZFSAzL0WnaRpy Tc0tdNr7oIgfRswcFUQ4Xlk7RK7oul44olk9dLmsNZGjrommPwD4UZzxODKquhudSKt4ICtjXJNrmHxo MFxtYXJncjcyMFxtYXJn iIP9EJFmxOYkQ4MzTGCjUOdbUKPmmxc9FaIqAd6eeRCebPLxyt3nft44CCU8a0EleKgsNMZ4TWH8PjLi Gn5opKJzSZPhWV3mYsNs yQYsRAMdyc34cNfzSEidvbIkjJ2lMcIvTWRosMQxBZXaXXUhK0qmHvHgwrXbG1riH8DjYTRyFBUxTTHh AsKkguZek4Tyj0EtrTOn yIu6o9rjCGHhKZGctJiyz1kgZRV1KHHzZ1A8rHDvs7ayXMkjBAKstBP7tnohYUrvUYPmzbG4mwycQKkw BTGncHJ0axX5ZTKmwVZo F7LacO0lQIAoNFdjPZZmzxt4UuXiGr6ijQAadCLvp3FypAUlETrlP01os329MHChilKrO8pctNMvrinl tMBbmikzDWopvfO4NWXk oyFok4XnXVRbSXM8PQooGMrgiCAjOCHynSppu6diB0BpeZKoYBRaWEmfKCTeSNFbLfDkjRRdQsLoQzXn aGljaFxmMVxkYmNoXGYx WYssD1ozNvAcT8KbELYbXjXioOElM7ckAfSPFpKawBxmyC1vSiHnObDsDxsnPD1sOXUbE0towNMhYGIl OSBaH2wtQkQkxD6lxOlj AJerBdJrNyTwXtzkBBB5d1BrgjYeLTElXVAthbMumQ7hpCcngajktWIbm2PdfPKzsG8rn3klmLysnO3h AnJfMcPiKtzrTE9gDBEa Q6ggwVNhCZZnJIJnS8wkExJhoH7vtEjjGXvjXkNrNhNqDqtekDYqdDzcHWhdqMWqDADostBbCQXwAKgs bGFpblxmMVxmczIyXGxh jsfnTMSfQIroY4eeEcOpNKPznPyjQYytq9JlZMQkPVDgDsmgdfBbGSGzID0eub1dePAgsPTlVeQkpNer AVCnjn5azAChUTMhGGIk yZXar6wzlERalshiXRpkfkDwAUsjyqnqKAKjGKofR2caLqJfFRSjtBlzWBavw0FqFBAgSNOdQopeyxOq WHb2fvVkQAIetZKaJYGd CNhqNUOjFSImAoPkpAAaGdLqStMpdIrtcMsvNJdcGrLiRZVhJPrjV6atHkUlT2KrVWPvWsKnKrvbYNUw pTqpqK9mHwZeTfPwAloc ZQ3gVYQvG2gzyOZtGNDcSRUdF5knCzEifV5stMrfRKeqJaTuOcAgLezmyZXoqHqeRQFmxxVQIhUliTbn xE9jChGkAnFtUiyjJZ3v CYCfC3wqaPYaOKVkZJSmR2ulOkUhfV8nqOayXOetJlSyKpCgJkwvKLRzk7QfHOp0sgyaP0UryLObUKTr mHboO2OczFNusF7pnJkp ldpmnVWtz4NgsRQzyI5ud0xjdYdtgW4zErVfUxEwLtgvIU4jYSQkN3iytMQtDJZyWYYbL3gxJsVwlC3l aFxmMVxjZjJcZnMyMlxs vJVvsFvlWOdxfEztzB8pCjYnLeQxXnzjKU3bHPKgA9qogSBgCTUlUGSvF9xmYpSzsR9qzTcmWAbxUtZh ZnMyMlxiXHBhclxwYXIg CJNtIWCeW7P2OR3lD08ufH0eIJZzfIXky9ViTVssjDuxjLRwzD6pqJHlpIGuj2HlyTMnvRTeJLcyLEBi ZVRhWZOaOdCeXQNtikKbEg0sIUpvxVUmbAgmPUopnPJ8RJCjGIHfBDpqDDO6KaiaVtppddRaieoliaa report gross observation Narrative e8zbuYOoYPLhlPZeNtKeOFIrJGUby4ciWMUswDZaXyVrNrLlUnOkFniyjTJiFGNeVxRzm1rri866nTWz d2nrKPHkCuB6bWEyWXPx wXDfY414TQLgJSjojk9zJE7gDLOwbZCoa7G5SMKDgbvphAh2o6osPcOmKoQ0aUFgXBfbU9nivkWxfKBv CSHbCHt5qOylJpBeRXSy a9Mipl8kSRKfsICyc0M5RFKDduanzWj3lMooY73lb6R7YyxuZ8ebPLNgWWsuZPOhACbakHImDJA9KESb REK8QRfiupCjtxM3XCew vEQeIjJ4ROtilpUpEjMmRPjbDNPeSpM4KKFrsXSpRFAjC914GAB6cEuux4kxGIS9FUJcUWYjUkJmGr6n nQXjA697TUOaPVVZQSCn tJw0KEXpjsNtacKuuTYVp996W667v2stPKTqzwNsiRpOgzghu0kcM718POSyjSSaesGhIrVqZSIskDQh sAM6TEVlCE4yrltnDvRv JJ7hbirfWqUzTU4bfsn9RFL0YXvjFYJpGwP8RWXxjVWbFDQmaTfjLDrnr528QLR2OYmrz9bss7cvlVBk Rkl6LXCjAwFyQqkdTKcv r0Pnh8ykNNErvd3eZCU9aJQfcKjsw2W1oXOyDOYdqCDxtoSoIMNmQdT4FXofBD8gFD1tFUPfkL1udrpt XHBnYnJkcmhlYWRccGdi auUiQg2rjHroCRS6BDtqF9dgvM4gAoJ8VXnxL4sivG8gMWr2YPcgoFI9KFYoiC1xWC6csqlet1lfNuJv BV2vhhase2uyDxLsGP8r rol1e3lkXTX8OHrgMAGjImW5igI9PYFvjEVpAMYzkFonSEiko408IOP3DYaeUyazJBjyNHNmsxPzneYa cGduZGVjXHBsYWluXHBs YKltZNZbRACnMbDdmBAeQGapq0UuhwTdsWjxETMvFBn0jyLrccaxhRg6wMKmrQudJCVvzLiqzK7nQxQx ZnMyMFxwbGFpblxmMVxm emDgOQrferhiRESdUTemH6yqNsVrWMOuiFlbYNnck2BgYDWrZSTpFAuashObBOx1ghZdWFKlKCXaoKSu IEEuICBSZWNlaXZlZCBp dlReg7NyFVdsccSoZZBdnBKpMWRxsIsgtS1iEoZkGdJwONqcSO1jWXXxK3zahZMzICNjPLLqX5oaSlMs lM5ubBnuIdpuAgCdRqLn HAtxly57PNU3r5iapAXmIKwbNdxtgBGotlD2NIxJCAEYHGdIZpNuHZ7aAGaKNjrIKPeUEtanUCWdPVmk xWXLMGyGO9p4UFVCGY2r DKlsTpj9EB01EBZuHPHmvXFbNAdlH295HVRuKSevLUPmGKOlHzOaaWXlCjEwMfQlbRibzKqbZrycQtPt PGXiXWlkQ0atYkYvS7Sq NXXbLyLzoWUxzCQqpTEBx6qpBDBEgC2fytLPYXKaYZtgHLMaBCAqHxOxqFUjZoElXaMcsYdahGweVjbe XpMaXUXiEIotA3dmSaLe C5InSLBsYmPfaVLfaURipNxpRujqgSN5HOsbMmrlyJ7urINJFUONMvlLBxhplkYxJY8YDJ6WPY4OcQE7 ZTCkzKW9NEXIKA8DuMqY AFClCtYeBDnhmUfcwKbjWaqkacAeaPScCbQixV0xjHfuiI1lOqGcZcHcBZzyIG2dYRPiQ4xbfPQtLQFd ILSsV5lmOrSjfI2vwRie ZNsxUsWzPyLcSQtkfRNyeFYeJHQpEBCpFKFcK70svCOxWUCrjSxzgC6kNoJhJyPeSUPJKzFWyR7mVV77 sXPlLRCgcyKpuG0gqZwj ncqrsAQyjmhvOEnxxtNcJRtrlhtkAGWwLJuuZ5nsIrJyQMZvuVzeVJilx7KtMCMwDBJaVHatwdOgEEh2 cmNoICIgXHBsYWluXGYy GFGcLlTuASSrGBB8ydE5FZ0zcD9fbLgjbpest59pd6QvVYOucYE2XSMwZQxzADRkLPIiNhBoyCNwLxHo MzNcaGljaFxmMVxkYmNo HGCjBEqaE1krChYfS1CdDWDdOrYcaHIvR9jyGNMiYPLyKGHtMZNnfOyneL0oDvWyLwIsDWOcZeUcaTDl EuIxiDEmHzGxePuquZ1n LeEdOkGiOIhlPG4bZOBhO9qcnPBpMAAxGOTsQ2wqNdGldI0haMbhNGekSwGyGjKnPGlxfDYevKMxV55s rUpsjZ6wUjSsIkRyIMQy EEJfrZqyiCBrmfldITplmsJeVQwabmweRROmRCmpF1lgLaFaTQXniHfxOXxnf4QcVXJiGXSrELdmhkFp YDw8hxQqRC0eIBXrkLHj qQeosK0iVeUcWlStCRVfJNBdLMzrGFRgUICwKhHpfBKvJtZbRvJrcTmwlPvpVBrbNrEoLAZeUJfaA5ce CvXxT2BsKBWwPqNgkSEv V5fjMrFdKZMcWWhuBOYiEIFqGtBplFPaGyVlBgRwcPnvqOilG3zvHnEuLWTyKEcvL9jdNsAaF0UyZIUh LzHzk0PnrUPvYNJ7BpBp SNZhJZumjUUrlhdbRNknhbIcATnftcrfOETgZZtiY9eiUvKiHFSxpGgnMSwmu7GzFBQpYBSjHCzlifMs PFz4sjSzIIElhfkiaIJf acwfOsokjoIyZEVyzrkyzXIpsgtgRQnwthYrQRudguijSTVeBBsjG4bzUyStDHNwkRztIYmqv2YgTOIw EAHwJCqbsvTkXEv3rgMi JPGqWASsiGMgARGfTDLVJTRqkTVfEHTcxzKcn1TbOFadnoStJVAgrQJqYLXhmTtitU9tPxMmPoYrXBbx BO7uAGOxI1lshLCwKUQo NRMjS3pkAaMptY1ewRdrSnpyChClHmKmHQdjkr03FRY6h0onlWJbZYqqXmnjvTSctnN0HMxZHVWWLAvA AfJqMX9sFHkTLatPBSgH PkbsROVgVCjbkGJLWUqFQ8z6HQUBIH4oAIuvXnx0PQ41QAWjHJKawLPqAAnvY518HHVkCVfmIIMnCSDt MjBcbGFuZzEwMzNcaGlj tVcsSnjzYkFiKKUdPPdcJ8ygCgHzB9WrZMLiDaCyyZZqyIAetQIFd0kyZFYAtN1zwjIEYWSsMCjhTBYe XGZzMjBcbGFuZzEwMzNc cHqhsRyeGnnpXoFmJQDzZHzsI1jsXtNxV2DoZTNkDlRkiHEenEYwvDeaKtoscNJ1FGkaYybddT1imFHJ MHJYZqfVIxkvjkUtHW2S BW0MBP5OhUZ4ZNTkbSP2BRGIQG5JbMpKMDQbOqOmBUvidAczlJqfOzkahoQmvDMcTaOxiX6kdQxnzZ2j FtPrMdScTMmmWA9bVZTk P3uthATvBVVnIKXkA5utWnUtuI6qpFzyLEfjCaCsSxZnFHxwkNEckUBiNGYnUTTbDXCpX02nwFEzTGKp nWzciM1jByViTdZfUVOR VpQUPVQ5nl6dh67ikQZsWLBuFQd5lnD8oY7lIEObLZlkXCCtSAImTuWefGReDuCrCaLtuIwmvDobJJua ZyWiNBPnMRnpQ7leTiCq O9XxAFCfKiPdjLTvE0qoVkMkmEjmiL9xEiWmZgXaMGOjpvFhxqRlzLnbblloePCnBPTxeS2ufSrgHIMq HMEczHpodN3iZhAzMsPj JKznSL6wDWYnM1dyaJVhYGZaGWAyA2wkZfHpnE3dmHoaPNkiQeRpYlRvMYdvcEMutBCagGomT8Vftmjr IFxwbGFpblxmMlxmczIw OTGdTHB2KHGxTfH1JUSdCQnkfMIygllzBWiwpjFmJAgmvibiCBAiZAvuZ5uaAgRyNKNzeHbfYHsmz5Wf XGYxXGNmMVxmczIwXGx0 tlEnEVMvsC4fRXWjcNFipNfsnR9oZoDrTpLxSBOnZBAnVZkyDCLbCUYmEdBtcVErUiBsTiZcxTfwkGcj QHubEkOiCOBpWIffG7gm SjPhS7WpUEKdLrUvcBQyJ6mlWrNcEFUhRIhoCGPoLVHvGlOmjUVpNnTuSfXeaXxkeKxiQ0huDoOkMKDf CTpcH7kwXiTiB0YqKMBp RpGuh6CblYVdQYG3EiVkEPEzBGkxUEWevUBbZXUlhzXea7AnKCXjUQC8MQfzKRwobWwgdKUvyazbOEhi czIwXHBsYWluXGYzXGZz SuGtqJJzDmPgMxMvlCfhxJzrQ2seUdWgUANzTVtjB5koZwDsJ8EjLJEsJjBoi6EkqJHqVNP1UkIpBOXj IoEHO2HAW9xzCGPkmRXv ODInMMmlSTGfGSGxZvWpjMDaZXhlm8SzULD7YA7tzsN9eQ4aLOAznxHdfi9cAYIlnJpbQox6XBGdvFMt HD8zqVgfCEjdmVBZd5Tz xMPmqXWzFST3GwYaO9yjncOjjxq8EECcekUcBDWiVIZkA32fnV9whTSzSJ2PJNDjHlF1UOUjhx3= [facility] microscopic observation Narrative Other stain w8cyhJCgCLQrnNIaDiRkTFYoAAQyb5urQHKcxRNnWeXiTaFdQcLnUgwxwCRiUNOuXdJzi9oce829oFHd w0fuGNKlVdW8aWHvERAb uHYwF601GNYnAErrt4fhs1NuUXFnqKHcb3O8HGBXpshfxEn0lHdxI76xk8X1YvpkM0qmRVLgQVBdY4Da XH4mKYYcMqo9CSO5HZQ8 DSOyYWEnD3CeTJ8mMPAvaTYrCZg3l6vhoBnvVTWfGRI8l4qpIRfcfnDfOI3jyh8djOo7y7whttLlVVXe KQHejYKTTCBeV8KcgAih Oo3alKq7wDqlYxluESQ0Trc0QV3cqw34pxf3vAgoDYJsdizhLdL7XYyeUCBmylzpQQx3YRicEXNzjFR4 UOPkjWRrU1YjDTXeWW5u xbt3WPK4EUrgGBVkXzK2MFTbnPUcBOGyyFccTWldp309RXU9ExMcFM6bW5Mjf5D1fT9aeTFdLACuqXQs KgAfUALind8yuZOuEUpn s7JxRTV6fsV3wLFudJGpRKAnDR96Laxxk4LrWnlgGBX0ZYNrlcKzf6Rtw4meXnWrilZdI4nfM3FkLGYs OSVaVZZwMrHxcjQmp1Em r5KcsAZjoKg2q8txAFFxHNIruPgjo1wsNRG9ZKWdO3P8jFVtn9bwMGxdRTGiiMP0vcB9ZSXnjMDmB9Fb fS9tPZZsGO8togg2k9ex ZLO6RTluWEDgKfO7keI9VOAxgQCbSRVvwMujSOqaq657CZF2EcKzHOGxs1IhM1EqdVowT38meOauJ58n ZDDzrShdaF9liJetsF4d WkLfLaKpASbzpXhojNKculuqDScbxxDxGDoqobnuGPQfUFrhQ5jsJuJwXTHcwIarFPavl7FyBOAnEROl GzGnFMkcpn4bE18usYJrBJrraXgyWYYyv15gsZIbqCEnZq3zwQUvIsfbNOT5IuksAmwuvhItpltphjaq Level, Randomon 36-23-9585Gztzmepgji mass conc18.4mcg/mLOhioPomerene HospitalNo established reference range.[facility] HospitalCBCon 86-83-2090Zrdcrqevtho distribution width Entitic volume (RBC)14.6 %11.6 - 14.8 %OhioPomerene HospitalHematocrit Volume Fraction (Bld)26.6 %Low41 - 53 %[facility] HospitalHemoglobin mass conc (Bld)8.7 g/dLLow 13.5 - 17.5 g/dLOhioHealthInterpretation and review of laboratory results AbnormalOhioHealthMCH Entitic mass (RBC)31.2 pg26 - 34 pgOhioHealthMCHC mass conc (RBC)32.7 g/dL31 - 37 g/dLOhioHealthComment on above:Cold Agglutinin presentMCV Entitic volume (RBC)95.3 fL80 - 100 fLOhioHealthNucleated RBC #/vol (Bld)0.00 10*3/uLOhioHealthNucleated RBC/100 WBC Ratio (Bld)0.0 %[facility] Platelet mean volume Entitic volume (Bld)9.9 fL9 - 15.5 fLOhioHealthPlatelets #/vol (Bld)160 10*3/uLOhioHealthRBC #/vol (Bld)2.79 10*6/uLLowOhioHealthWBC #/vol (Bld)4.58 10*3/uLOhioHealthCreatinine, Serumon 06-27-7989Vzctxturec mass conc0.95 mg/dL0.8 - 1.3 mg/dLOhioHealthGFR/1.73 sq M predicted among non-blacks MDRD vol rate/area (S/P/Bld)The eGFR should be used for monitoring renal function only and not for medication dosing.[facility] HospitalGFR/1.73 sq M.predicted CKD-EPI vol rate/area (S/P/Bld)76>=60 mL/min/1.73 t2LknjYwwkmmBldmjoobtivqsl and review of laboratory resultsNormalOhioHealthTISSUE EXAMon [id number] Report Surgical Pathology Report Case: [id number] Authorizing Provider: Flynn Mann DPM Collected: 10/08/2018 07:43 AM Ordering Location: [facility] Received: 10/08/2018 01:42 PM Center Periop Pathologist: Shyanne Yoder MD Specimen: Amputation, Foot, Left, Left foot to pathology [facility] Systeminical information z6vujNAeQHYmfIPpYbXuBUGbKMJxu2vgFXOndWQsDiJlJnEeUxMjXczvrRPjKFAnVfCgp8dhn868fSLn q3dvCKHgWnX5uWZrZXKt zUMeD751f9noa9bpzyDzgYC1AARdBET0KJoadhXzbqW2PQeylDQqVxE1BYfvjzZxBHuxjaSuerOlMos5 MPWmD067CJS9tObwj2ik DCZ7IJMuORIrKyTtZt2vpMFtW779TVNtBFKWIDGqwJn9SWOuzhNhkeBkbMWXa759C475r8mnXDXuazMz gZaZxohlm8osG825DHYo fCZgojLzChNoSJBqrJUaaYO9UZHiNQ3tabymDvReTH6vtuhzIvXfXE3qqlb5XGW5DEpsGHJzWjB1ITAe cXWhZFByjXttAZefc164 NNV7TQgpy3muw9mudBTrYpw4GADiAqOyYzrfGSqvp9Tmp5ktBWIgpv4xKYS9eQSjuVuyg9V2eMOwEOIl sTTrejDvFRMiVmM3VXtq GE8new72BCDfXBE7at7gaQQhiRfcqyUnvQObVHmyB8CoCIAbo910DTHmJ9SdESZge9O4oaCsBuIqDQNd tNH6ouR8WTAkYEk2aMOi szR2qsSoyEAhQ4rixX76EjSeqQUmL4LmuU36WqYuwPDxD3VmaY0oVNIpPR1dmnvdt1xhSDV8IEzjQYHl NFA6WsSmINFpm1Szqngu ORIey3DhW3DbfQucJ50xnRdzN21aNGYkmJkfrL9tpJndtN1nRyDdHcTiYNqdjTdhcRXkbpwiQRxeslVq SWizkvwwYJHrOFamO7zl LaDxTBOroWnlGSowv9ImKWYtXNTwVbPgTPMuoTGhw183KOntgvudRW7rLamtBLP2CjteWcnmsm Pathology report final diagnosis Narrative i8vouZIcMUMqhXWbBrVbTLUfVCNsq6ssXKAlrNPnZfUoEiVlMuMlQhogvTHjNNYnMcHnx4zlx628sJKo g5zsOWTvTfQ1jFRnJTPf yDZyO693KDOkOGudo6shg7EaVTLofQVbb4J5PMBBrndrmFw6wBotS93qs2B9LlebF2zhLWRpTDfqQQKe HDlabACmEHU4MFEjFBK7 REsaiiKjadW9NBsbaGXeRkV5AAc2o1imiWeyXCQcRCF3z5jbOXwpahEnPS5cjh7dqNd4p0xwzjPgMFKo PSQmhOJMGUYvX4LitDru Se1guIk1gDhuMktfYRE0Kbe2BA1zje66azi1jKopVVSyohgzPpI7ROcdTFSwwwjgHUu3UQahRTMuuUth MFxtYXJncjcyMFxtYXJn mAM1ZDNxtWQxM8ExFXPfMScsYHCrpwt0MhQpQr5gjEVfgQRbsy6rap54KDV8b5XlkNhyEAX0WDH8HqCa Mo5jaSEcCQWfAD5xOzZe kFKdGEXwyd70kYmvFAsdqlAmgQ6tSrWoJXWwrHUxSFUpSEHjQ6byJlRmqyAaE6ohX9YkNJTeBDUxBAPo FuXkkoHvh3Yfb0DguZMs iWb2g6paJXZyLCOfyFikc9goASW7PSPbA0L6hDHse8xoZCgxMGJjnJX4brhqMTuxPRTttaW1fdhcUTtz XHCsnZN4erK7HTOcrYZg S7KolX9jNQUrXVjwWDSdowr0WrMoXr9eeQYsfYEtv0LwyGMyFKqzK92mf109TMRohmWhU0zepIJjdgtr bGFpblxmMFxmczIwXHBh jpTgf8HnPCLfKVC6GZnlAYwiwYVmBAOaoFfad5voC4SbuKYrCORtNWejSZIsREDmOiScbBgplF3yFnEc HtBnMSfqWD8qTHUkX7ti wPLaATRxNSVnF4bzQbGesZ4ahHlaJZawAvRmEnYmHYugAPZltramkRLvpnopAJdwgiUpGCaduqmlBDZa IXoaM9kcNvPiFUTatFgg SIjuh1SwUKIoUAXbTKhxmpFfZRHtYLZlhNUjh850JYPsnRH5bUW0uB5mPEQkGPwmRAIqQPMlCiPtjKKm ZzEwMzNcaGljaFxmMVxk CoDyKMVnAFbdP1ipCsAlY3FsILSnCjSgwBJdO7ydYkC9MMBdMFoyAADkLFSaCjGglVUqIyTeJsLebXyj aFxmMVxkYmNoXGYxXGxv F9nnGnTwC0NrCKUjZxUlOfyjSIAcbGEtONMsikPem6HqAVJoFSW0JNvxAVaauNcyvLEoqlqeBGljkhDo XHBsYWluXGYxXGZzMjJc wLHmKfUxEoLupFhvoRxzMYduEzHmKDBoMAkyJ6fbQrVvJ9QmKJEmQqWyHgSaTHDkMJBRoDQsliQyadBc r90lkTA1sEEcwPOoFN4nJSNmvcKuebShtg0fzCLzZAAqikfzeLHhyaxgIYbwzbJqEGNwqmcsZLY9 [facility] report gross observation Narrative x2eoiRAgQWFawHSuPwZnBDXcFRVtc6xtOPYjlXGcNqQcOqLmLtBiEnodyLDjEXVhMxBgj9zbf124tHRa y8ppAKSrFlN0vWQqNOJc wZDoM915VHKfXKiboq2xPE4hMXLpzBRbz3D0QRAYiplzmWb7d7huEmVjZpE5xNAuSOnwR2znneBfeGQd OOXwGBc3tG47ODJfrR9r yIXeKKnruwBdCAhhcyWdbrFkNkz2YEYtS0dxFMMdFOQrA4GkUU9tDWXyAva9ZYB5RZN0RIRhRHBzDEpu cmVlbjIxMFxibHVlMjU1 RFs7d3lzqAuxGBLeTJK3r4gvGJivesOgJP3lea4hmFm4o1zxqiOzHUHmJMNjwLTUSTVfU1XvgUkeRn9k bPs0ePkhYqeiTNM8Nxp1 KQ1oaw21kgi9qZvnOMMygxcuCuI4ZOpmZWFgcobkKNp3AJybVQNxoQetXApvNACtcaarAMucNREwgQC4 PUHvhZHhZ5YrIFQqKMwj LKLlvhp4TgStKs7pcECtdIMiwi7wgg89AEI5w8FebWtcHUL3VEW2XyNwZg9fvAPsJZEjMH8pObQpgOHb XFRsdu17cBonEXurcmRo qC8nFzWzOMWeaRYfBNOkMNQdW0ywMuXxzoAxB5iqZ7VgHAChITVrSVAuLpZjjgDbs3Kty5JkpRMegOs8 r9gqULUbFRFcqJadj0bm CYZ9RLTiR3Q1nFCwt9jtQZyiLHNilXS4otgjRRkqFCVpueL7ryupVWecFRXzwJN8ufA6ZNDwkUNzT7Ku bP8pIUJwLMcoQUAlljl7 EbByHm4uqYBhoISft8MkzJDdFLjoY39ek734OKPrlzCiU5yiwREnltbarIEbuudjTQrrjjVfJZTtASNg YWluXGYwXGZzMjBccGxh vX7iUaEkYqElTQssCP9qUTPkA2gvmXSgFRMzMKKgK5stZrAjhE8akZgzXTexThWzPyLpWWxfrXSllAXZ WXYvmYUcUFJmoaFfa9Ts EWianpAmBVMjwVMuOOInhIewgC5eSxHvVrCxCKikMX2uDTKuS8tdiRPeKJCzHTAaA6ftXrQfsW8idOpl PJtpEqNaRhBeJTdqbe90 MUA5o7nnaWNhJWvgUqztrEGynzZ8FOpDQHYKDIaYAaVvTO6uALlNTtaYQMtPCubyQLChYLjfwXITYYfH Y0k5SMHLFZ1vCNlxNim0 UD10CTJuXPWawWIsHBllT134SDVdIDnmNQEpMSPoHbCnySScHfKxZcOpyEihwLluQUfjGfTjJUGaNPvh H9naEsZrZ0TgJNQmJcCx cTUjtDLmbKCMf9ztRRWKcT6wosECSRQeCHdfGRZxHEEtDdHbuXRxKiHlSgJafLxfdLssDMuwRvJfVKHo HHjkY0xfNpHhG0ReOASi PyGzzWQipFMwiHwaEsfpiZF8CRksNsqgcH8szMIHORJWYjqQBqqrbwLvTC0XZW8QHG2CjSO3NENtkSL9 SFZWPA7BhJkONTWhLcUq KRmtuXgvjGydXbhoncSqdHBmVtQwgC9qjDihvB3rGiWcQoQpCIomNJ7uFZNrZ4sexQXyZKKuDJEjP8kj QkCtsK7caYstVJnaGvEv SrTtVGjicEXgyYEyGRAsAVQpANBtA49ogTHrSQFviAzxvU6jOlWtNvKpALAmYJL0GLUlm6DvTR3oqWYn dGlvblxwbGFpblxmMVxm hmAsNPscrpxeLNHdVXmaT0nkNuZfBEUesIfoCDpdx7AgPAQxUMUvLWfidwEyTZh6rgGzGLHnmIpijB6j ZjJcZnMyMCAgaXMgYSBk eGZzutIjF1BpZNXgCEQcVCF7ZQMegnGre493IVFoQEV1ETkgUMO2VEIuC81zQUMAfJFum9yalxDijsW7 SM4lw1lcaGNvKGcbaN5y kOFvEcFoSAxaHHZbyZ4al48kuSwpMUEvLJAvIB5ePDXjSPNqhSE3AVeskGJqKiKpMpW5tRTuXQ7kt7Qe ZLK2bdVaG4Lyi8GwpXjm WLCrf1CygBLoL9Mth2EqmKWreI1jcQGqIWNoXNZkwYWuBD5kNFLhhwPeGw5oQYurbEWlUYSuo3NwNg7r IEZpdmUgZGlnaXRzIGFy CCNwfvNuWE97DSCmHDAtRLdrkJmbQPI6FT5paO2lgTJvzX34EMU8bEwjw2XoXSQxcT7fyiAcqC3yYJXt cGFyYXRlbHkgcmVjZWl2 QSRpFJHyZNRdOXSmaLHglSoak2Jco07gLDRdDSU2vUwnHVSknK7mhWXubl4hUu5tGDPxSC9tHKXbvTMw vlRkB9ZtTJBgzAItxKHh Lw3zRE0zKECwZMSaepNxE9HyPEHgu7EmNjTuJEIdDRSjYTigKFmnv6cqhYDoISYfp797aJ9rEGdzZHSn nUYaPHUwi7IvkGFqNOH3 aW7vest0IAWVFN9mNUPoRESziaVssWy9HQSti0vcUTYzp6CnwAbqcaRjLHGheM2xPOMcNMVwBwCOSo5b VPLvDNDcjsEywMa6QGRx MXWbp8NaQhVnavBoIzwoH7jxHNUegNShIG4bQBWqk3xnOiWJXo3oq45eDSGgCXLgwO6oUcfqG4qjxBse U2jvfvNpKHKcjR0uLAZh P9FeR6kgnQQoCsIVUE7eWORqGJTncbSrsNt1VDObhXPquCLzPp3fQZekAGFfEWdbpFDyXIG5AFQ7ISMh aRSew5LdwNC3cTClSNAk uILoBWD0cePlMp8trSYlt91cBYXbAFCroIPoQftpQT0jUK7wFX6vNVShhwedLOTaP9UYO4OVLx5rrZue VQPpalacTRZzD3Elm3Tu NLhyxGdlVIFpi67kaAMwPd8hnENlPOZ0GxUZwTBaybRkNJDmVRI5oY6cgQW6JQxzu3ZikWWrON7lTeRm NHHXmMMwaNPeY9xwPuz7VFNjIf8bZZWVb6q9oKO5zfcwP5zgRZBlCSBjNOBytd6=AxjuHmxipo Pathology report microscopic observation Narrative Other stain e7pgxSSpOGNdfHJvAjCbCBFvSZYtx9yaBYQntZMvPnJfKmXaQxQyMfmcmVHzATFvYtOnd4rtu589aGSu j1tqFQRbNcF7fYRhNFLh jKGlH461CKAlBMqod7nfl5UvIOOftICcc5A8PLONgpfwiVp0cAxyO09nb1D9NlkuO9zuZKDvBIDiH7Gt WA3wGZKiMho1NYJ9GXD2 WWSbGUPfQ6MtVZ3oCWCwnNHkCTo1x9nvfQmvTFXfCSN9z2onCAfrjiUsKI8pxs7wrQp0e3mlijMgUKHw WBUbzEWHDOEzX6CkzDxf Op6ycGo1zZoyMqusNFY3Xwd6RU5nqs58xjo0dVfyUHBrjalpHkU6QRejCYPqbmhwQQz6XJplLZUaxVN7 HBTkaTYaA6VdSDUpAY9v txb3XSV5ITflOPCqQnU1XSTbrTXcTTMoeDdiTKprd197XWN0EgQmHP2xL1Xta0M0hE9dfYMaYAAsyYSb BfDkLLJtjc7pkOVuHYfh e2QtJSO9yaE9nWVmzJPiRSRdXC12Sbcdf2NaWppnHDU5XDNylrNnp4Upx5gjNnXexsRnS5toT1DmJCFj NNQkQWJxWtMmjaYam3Cq p8UwlCCtrOp1s5hhIXRtCYRtfHezc1doQXM5VJDoO8N5xINhu1efSAgfSWHmhVY4hwG4KIZpxTSfX9Lb nW5nSBCvWC9ylol4y6ef NHF5DHepCYIlMyN5poH7GRRkdGFaGLWfpDfjNQtps551NPX8LgZsHDHzr9FuG9GswEgeG81qvTwhB75w NZXmiHiomY9nuZemqV1x PbOsXkSaIRdbyQbymHLbptdpNOjlnsTrEPmomajhUJFoGQneT0jlKcXyEQRvdEstDNuve5RkLUMnVGMk DmNsJGczpo3wM98qpVAuUUzwnYeqBUJwg41hgWTitQCwBz1uvTFyFqheHUF0YhscRgukzxDzepmhkiyo Level, Randomon 97-10-4703Wtrnqpqrup mass conc14.3mcg/mLOhioHealthNo established reference range.[facility] HospitalXR [facility] Left 2 Viewson 10-11-2018 EXAMINATION: [...] of the lateral malleolus. 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 Surgical drain present. CASSANDRA/[facility] Workstation ID: [id number], [facility] - 10/11/2018 [...] articulations. Surgical drain present. VK/mll Workstation ID: [id number], Serumon 09-15-3458Uanrbhuagw mass conc1.06 mg/dL0.8 - 1.3 mg/dLOhioHealthGFR/1.73 sq M predicted among non- blacks MDRD vol rate/area (S/P/Bld)The eGFR should be used for monitoring renal function only and not for medication dosing.OhioHealthGFR/1.73 sq M.predicted CKD-EPI vol rate/area (S/P/Bld)66>=60 mL/min/1.73 h7JzlnByasavRxtatcmbklyzqz and review of laboratory resultsNormalOhioHealthECG 12-LEADon 40-40-4780Awdwjx Rate 72BPMOhioHealthP Twqq-487olcubdrRjpyVvqeduX-F Ljjckzpp169 msOhioHealthQ-T Okhiyhpx971 msOhioHealthQRS Lcncwaxv81 msOhioHealthQTC Calculation (Bezet)457 ms OhioHealthR Algj274fsedrzdJbtaYdadfoG Exgq194ccltaqpDdonDlmglpWexevtvzhhi Rate72 BPMOhioHealth Suspect arm lead reversal, interpretation assumes no reversal Unusual P axis, possible ectopic atrial rhythm Lateral infarct , age undetermined Abnormal ECG When compared with ECG of 05-SEP-2018 13:28, Ectopic atrial rhythm has replaced Sinus rhythm QRS axis Shifted right Confirmed by Maxim Ward M.D. ([id number]) on 10/10/2018 1:34:17 PMOhioHealthHemoglobin and Hematocriton 31-01-9267Mmqujcrqyg Volume Fraction (Bld)25.1 %Low41 - 53 % OhioHealthComment on above:PRE-WAMED FOR COLD AGGLUTININHemoglobin mass conc (Bld)8.2 g/dLLow13.5 - 17.5 g/dLOhioHealthInterpretation and review of laboratory resultsAbnormalOhioHealthHematocrit Volume Fraction (Bld)24.0 %Low41 - 53 %OhioHealthHemoglobin mass conc (Bld)8.3 g/dLLow13.5 - 17.5 g/dLOhioHealth Interpretation and review of laboratory resultsAbnormalOhioHealthVancomycin Level, Troughon 03-20-9436Ncacxazhkiklxd and review of laboratory results AbnormalOhioHealthVancomycin trough mass conc27.4 ug/mLCritically highOhioHealth XR Chest 1 Viewon 25-11-4399Takivvqad, Rad In Kary Speechq - 10/10/2018 8:25 [...] resolution. 2. Findings suggestive of underlying COPD. [employer] Workstation ID: [id number]. Increased bibasilar pulmonary opacities may represent atelectasis, pneumonia, and/or aspiration.Recommend radiographic follow-up to complete resolution. 2. Findings suggestive of underlying COPD. [employer] Workstation ID: [id number]: SINGLE XRAY VIEW OF THE CHEST 10/09/2018 [...] of pneumothorax. No evidence of acute osseous abnormalities.[facility] HospitalBasic Metabolic Panelon 66-30-8746Emfvc gap molar conc16 mmol/L10 - 20 mmol/LOhioHealthCalcium mass conc 8.6 mg/dL8.4 - 10.2 mg/dLOhioHealthChloride molar kdny930 mmol/L98 - 108 mmol/L [facility] HospitalCreatinine mass conc0.90 mg/dL0.8 - 1.3 mg/dLOhioHealthGFR/1.73 sq M predicted among non-blacks MDRD vol rate/area (S/P/Bld)The eGFR should be used for monitoring renal function only and not for medication dosing.[facility] GFR/1.73 sq M.predicted CKD-EPI vol rate/area (S/P/Bld)81>=60 mL/min/1.73 m2 [facility] HospitalGlucose mass imcm856 mg/aHHipp52 - 99 mg/dLOhioHealthHCO3 molar conc23 mmol/L21 - 32 mmol/LOhioHealthInterpretation and review of laboratory results AbnormalOhioHealthPotassium molar conc4.2 mmol/L3.5 - 5.1 mmol/LOhioHealthSodium molar vguc660 mmol/L135 - 145 mmol/LOhioHealthUrea nitrogen mass conc9 mg/dL8 - 25 mg/dLOhioHealthUrea nitrogen/Creatinine mass ratio10.0 mg/mgOhioHealthCBCon 33-43-7915Qqbjtllhygo distribution width Entitic volume (RBC)15.3 %High11.6 - 14.8 %[facility] HospitalHematocrit Volume Fraction (Bld)27.7 %Low41 - 53 %[facility] Hemoglobin mass conc (Bld)8.9 g/dLLow13.5 - 17.5 g/dLOhioHealthInterpretation and review of laboratory resultsAbnormalOhioHealthH Entitic mass (RBC)31.2 pg 26 - 34 pgOhioHealthMCHC mass conc (RBC)32.1 g/dL31 - 37 g/dLOhioHealthComment on above:Cold Agglutinin presentMCV Entitic volume (RBC)97.2 fL80 - 100 fL OhioHealthNucleated RBC #/vol (Bld)0.00 10*3/uLOhioHealthNucleated RBC/100 WBC Ratio (Bld)0.0 %[facility] HospitalPlatelet mean volume Entitic volume (Bld)9.7 fL9 - 15.5 fLOhioHealthPlatelets #/vol (Bld)187 10*3/uLOhioHealthRBC #/vol (Bld)2.85 10*6/uLLowOhioHealthWBC #/vol (Bld)5.18 10*3/uLOhioHealthCreatinine, Serumon 65-85-6735Mereodyzst mass conc0.95 mg/dL0.8 - 1.3 mg/dLOhioHealthGFR/1.73 sq M predicted among non-blacks MDRD vol rate/area (S/P/Bld)The eGFR should be used for monitoring renal function only and not for medication dosing.[facility] GFR/1.73 sq M.predicted CKD-EPI vol rate/area (S/P/Bld)76>=60 mL/min/1.73 m2 OhioPomerene HospitalInterpretation and review of laboratory resultsNormalOhioHealth Gastrocult Gastricon 11-92-3885Argjcjsucg.gastrointestinal Ql (Ciera fld)Positive AbnormalNegative for Occult BloodOhioHealthInterpretation and review of laboratory resultsAbnormalOhioHealthHemoglobin and Hematocriton 10-09-2018 Hematocrit Volume Fraction (Bld)23.2 %Low41 - 53 %[facility] HospitalHemoglobin mass conc (Bld)8.6 g/dLLow13.5 - 17.5 g/dLOhioHealthInterpretation and review of laboratory resultsAbnormalOhioHealthXR CHEST PA/APon 24-88-9452LR CHEST PA/AP EXAMINATION: SINGLE XRAY VIEW OF [...] PINO on MonOct 10, 2018 8:22:38 AM [facility] HospitalComment on above:Order Comment: Reason for exam?:Dyspnea Injury/Trauma or Illness?:Illness/Other How long have you had these symptoms (acute/chronic)?:Acute History of cancer?:unk Surgeries, chemotherapy, or radiation?:YES Type of Exam?:Initial Additional signs and symptoms?:naBasic Metabolic Panelon 18-48-2429Jsejh gap molar conc16 mmol/L10 - 20 mmol/LOhioHealthCalcium mass conc9.1 mg/dL8.4 - 10.2 mg/dLOhioHealthChloride molar ckph098 mmol/L98 - 108 mmol/LOhioHealthCreatinine mass conc0.70 mg/dLLow0.8 - 1.3 mg/dLOhioHealthGFR/1.73 sq M predicted among non-blacks MDRD vol rate/area (S/P/Bld)The eGFR should be used for monitoring renal function only and not for medication dosing.OhioHealthGFR/1.73 sq M.predicted CKD-EPI vol rate/area (S/P/Bld)90>=60 mL/min/1.73 v3OfjgDypifc Glucose mass conc90 mg/dL65 - 99 mg/dLOhioHealthHCO3 molar conc23 mmol/L21 - 32 mmol/LOhioHealthInterpretation and review of laboratory resultsAbnormal OhioHealthPotassium molar conc3.8 mmol/L3.5 - 5.1 mmol/LOhioHealthSodium molar aaid718 mmol/L135 - 145 mmol/LOhioHealthUrea nitrogen mass conc6 mg/dLLow8 - 25 mg/dLOhioHealthUrea nitrogen/Creatinine mass ratio8.6 mg/mgLowOhioHealthCBCon 77-99-3386Bcmyfrgqwyp distribution width Entitic volume (RBC)15.5 %High11.6 - 14.8 %[facility] HospitalHematocrit Volume Fraction (Bld)31.0 %Low41 - 53 %[facility] Hemoglobin mass conc (Bld)10.4 g/dLLow13.5 - 17.5 g/dLOhioHealthInterpretation and review of laboratory resultsAbnormalOhioHealthMCH Entitic mass (RBC)33.4 pg 26 - 34 pgOhioHealthMCHC mass conc (RBC)33.5 g/dL31 - 37 g/dLOhioHealthMCV Entitic volume (RBC)99.7 fL80 - 100 fLOhioHealthNucleated RBC #/vol (Bld)0.00 10*3/uLOhioHealthNucleated RBC/100 WBC Ratio (Bld)0.0 %[facility] HospitalPlatelet mean volume Entitic volume (Bld)9.7 fL9 - 15.5 fLOhioHealthPlatelets #/vol (Bld)202 10*3/uLOhioHealthComment on above:Platelets clumped on peripheral smear. Results may be affectedRBC #/vol (Bld)3.11 10*6/uLLowOhioHealthWBC #/vol (Bld)3.86 10*3/uLLowOhioHealthECHOCARDIOGRAM COMPLETEon 19-91-7106HRLSBBRHVNVEKM COMPLETE REPORT Patient: SHERRY [facility] Rec#: [id number] (Age): 1940(78y) Height: 188(cm)/73(in) Study Date: 10/08/2018 Weight: 99(kg)/218(lbs) Room#: 2456 BSA: [id number] Type: Inpatient Loc: [facility] Echo Lab Sex: M Reading: MD Nikhil Davalos Referring: AARON CHOI DANIEL Fine Patcher: Geovani Matson RDCS, RVT History: Hyperlipidemia Hypertension. Valvular disease. Diagnosis: ICD-10-PCS Encounter for preprocedural cardiovascular examination (Z01.810) Cardiac Complications, not classified (997.1) CPT Code(s): ECHO COMPLETE W/ DOPPLER (97932) [facility] Echo Full w/ contrast. Study [...] 0.9) PV peak gradient 3.23 mmHg none CO end-diastolic Vmax 1.41 m/sec none PA end-diastolic pressure 12.95 mmHg none PV acceleration time 77 msec none Electronically Signed at 10/08/2018 17:26:05 by: Emmaunel Connor MD [facility]RE[facility]: SHERRY MENDOZA Kristine Rec#: [id number] (Age): 1940(78y) Height: 188(cm)/73(in) Study Date: 10/08/2018 Weight: 99(kg)/218(lbs) Room#: 2456 BSA: [id number] Type: Inpatient Loc: [facility] Sex: M Reading: MD Nikhil Davalos Referring: AARON CHOI DANIEL Fine Patcher: Geovani Matson RDCS, RVT History: Hyperlipidemia Hypertension. Valvular disease. Diagnosis: ICD-10-PCS Encounter for preprocedural cardiovascular examination (Z01.810) Cardiac Complications, not classified (997.1) CPT Code(s): ECHO COMPLETE W/ DOPPLER (54696) HCPCS Code C8923 Echo Full w/ contrast. [...] 0.9) PV peak gradient 3.23 mmHg none CO end-diastolic Vmax 1.41 m/sec none PA end- diastolic pressure 12.95 mmHg none PV acceleration time 77 msec none Electronically Signed at 10/08/2018 17:26:05 by: Emmanuel Connor [facility] - 10/08/2018 5:27 PM EST REPORT Patient: SHERRY TRISTIN Jones Rec#: [id number] (Age): 1940(78y) Height: 188(cm)/73(in) Study Date: 10/08/2018 Weight: 99(kg)/218(lbs) Room#: 2456 BSA: [id number] Type: Inpatient Loc: [facility] Sex: M Reading: MD Nikhil Davalos Referring: AARON CHOI DANIEL Fine Patcher: Geovani Matson RD, RVT History: Hyperlipidemia Hypertension. Valvular disease. Diagnosis: ICD-10-PCS Encounter for preprocedural cardiovascular examination (Z01.810) Cardiac Complications, not classified (997.1) CPT Code(s): ECHO COMPLETE W/ DOPPLER (95630) HCPCS Code C8923 Echo Full w/ contrast. [...] 0.9) PV peak gradient 3.23 mmHg none CO end-diastolic Vmax 1.41 m/sec none PA end-diastolic pressure 12.95 mmHg none PV acceleration time 77 msec none Electronically Signed at 10/08/2018 17:26:05 by: Emmanuel Connor MD [facility] HospitalPT/INRon 83-34-2816AMB Coag RelTime (PPP)1.1 {INR}[facility] Interpretation and review of laboratory resultsNormalOhioHealthProthrombin time (PT) Coag time (PPP)13.9 sOhioHealthDuring the induction phase of oral anticoagulation, the INR may not reflect the anticoagulation status of the patient. Therapeutic ranges for INR's are: Most clinical situations: INR 2.0-3.0 Mechanical Prosthetic Valve: INR 2.5-3.5 Critical: INR >5.0OhioHealthXR FOOT LEFT 2 VIEWSon 71-47-0634WY FOOT LEFT 2 VIEWSEXAMINATION: 2 XRAY VIEWS [...] articulations. Surgical drain present. CASSANDRA/karie Workstation ID: [id number] Dictated by: NAT RHODES on MonOct 08, 2018 1:43:13 PM EST Transcribed by: JAK WATSON on MonOct 08, 2018 2:16:35 PM EST Finalized by: NAT RHODES on MonOct 11, 2018 8:36:46 AM [facility] HospitalComment on above:Order Comment: Reason for exam?:post-op foot / ankle Injury/Trauma or Illness?:Illness/Other How long have you had these symptoms (acute/chronic)?:Unknown History of cancer?:unk Surgeries, chemotherapy, or radiation?:YES Type of Exam?:Ongoing Additional signs and symptoms?:UNLCreatinine, Serumon 69-76-4897Nxeugoowws mass conc0.70 mg/dLLow0.8 - 1.3 mg/dLOhioHealthGFR/1.73 sq M predicted among non- blacks MDRD vol rate/area (S/P/Bld)The eGFR should be used for monitoring renal function only and not for medication dosing.OhioHealthGFR/1.73 sq M.predicted CKD-EPI vol rate/area (S/P/Bld)90>=60 mL/min/1.73 t6EtgpKapcyvNqiqlcfblpxkjz and review of laboratory resultsAbnormalOhioHealthVancomycin Level, Troughon 71-17-9627Linsrvzovunuxo and review of laboratory resultsNormalOhioHealth Vancomycin trough mass conc10.9 ug/mLOhioHealthXR FOOT LEFT 3+ VIEWS (STANDARD) on . Limited evaluation due to overlying dressing material and diffuse osteopenia. No radiographic evidence of soft tissue gas. No radiographic evidence of new area of osseous destruction. 2. No acute osseous abnormalities identified. RECOMMENDATIONS: If further evaluation is clinically warranted, con drama critic MRI or CT. frents Workstation ID: [id number], Anton In Kary [facility] - 10/06/2018 3:46 PM EST [...] is clinically warranted, consider MRI or CT. frents Workstation ID: [id number]: 3 XRAY VIEWS OF THE LEFT FOOT [...] Plate and screw fixation of the distal tibia.[facility] Basic Metabolic Panelon 94-28-0852Pgcqy gap molar conc15 mmol/L10 - 20 mmol/L OhioHealthCalcium mass conc9.1 mg/dL8.4 - 10.2 mg/dLOhioHealthChloride molar uksd105 mmol/LHigh98 - 108 mmol/LOhioHealthCreatinine mass conc0.67 mg/dLLow0.8 - 1.3 mg/dLOhioHealthGFR/1.73 sq M predicted among non-blacks MDRD vol rate/area (S/P/Bld)The eGFR should be used for monitoring renal function only and not for medication dosing.[facility] HospitalGFR/1.73 sq M.predicted CKD-EPI vol rate/area (S/P/Bld)91>=60 mL/min/1.73 c5PujvVmrkfnSgucfpu mass conc92 mg/dL65 - 99 mg/dL [facility] HospitalHCO3 molar conc23 mmol/L21 - 32 mmol/LOhioHealthInterpretation and review of laboratory resultsAbnormalOhioHealthPotassium molar conc4.2 mmol/L3.5 - 5.1 mmol/LOhioHealthSodium molar fnqj093 mmol/L135 - 145 mmol/LOhioHealthUrea nitrogen mass conc9 mg/dL8 - 25 mg/dLOhioHealthUrea nitrogen/Creatinine mass ratio13.4 mg/mgOhioHealthCBCon 32-18-2417NrnmhzcGWMZYLVJOY SMEAR REVIEWED MANUALLYNhioPomerene HospitalErythrocyte distribution width Entitic volume (RBC)15.5 %High 11.6 - 14.8 %[facility] HospitalHematocrit Volume Fraction (Bld)31.9 %Low41 - 53 % [facility] HospitalHemoglobin mass conc (Bld)11.0 g/dLLow13.5 - 17.5 g/dLNhioHealth Interpretation and review of laboratory resultsAbnormalOhioHealthMCH Entitic mass (RBC)34.2 cqOxdy72 - 34 pgOhioHealthMCHC mass conc (RBC)34.5 g/dL31 - 37 g/dLNhioHealthMCV Entitic volume (RBC)99.1 fL80 - 100 fLOhioHealthNucleated RBC #/vol (Bld)0.00 10*3/uLOhioHealthNucleated RBC/100 WBC Ratio (Bld)0.0 % OhioPomerene HospitalPlatelet mean volume Entitic volume (Bld)9.5 fL9 - 15.5 fLOhioHealth Platelets #/vol (Bld)237 10*3/uLOhioHealthRBC #/vol (Bld)3.22 10*6/uLLow OhioHealthWBC #/vol (Bld)3.95 10*3/uLLowOhioHealthPrewarmed Patient has cold agglutinin.[facility] HospitalCB WITH AUTO DIFFERENTIALon 96-84-4333Jwjiwcutc #/vol (Bld)0.03 10*3/uLOhioHealthBasophils/100 WBC (Bld)0.6 %OhioHealthEosinophils #/vol (Bld)0.14 10*3/uLOhioHealthEosinophils/100 WBC (Bld)3.0 %[facility] Erythrocyte distribution width Entitic volume (RBC)15.7 %High11.6 - 14.8 % [facility] HospitalHematocrit Volume Fraction (Bld)32.7 %Low41 - 53 %[facility] HospitalHemoglobin mass conc (Bld)11.3 g/dLLow13.5 - 17.5 g/dLOhioHealthImmature granulocytes #/vol (Bld)0.02 10*3/uLOhioHealthImmature granulocytes/100 WBC (Bld)0.40 % North DakotaHealthComment on above:The IG parameter is the percentage of metamyelocytes, myelocytes, and promyelocytes.Interpretation and review of laboratory results AbnormalOhioHealthLymphocytes #/vol (Bld)0.94 10*3/uLOhioHealthLymphocytes/100 WBC (Bld)20.3 %[facility] SystemH Entitic mass (RBC)33.6 pg26 - 34 pgOhioHealthMCHC mass conc (RBC)34.6 g/dL31 - 37 g/dLOhioHealthMCV Entitic volume (RBC)97.3 fL80 - 100 fLOhioHealthMonocytes #/vol (Bld)0.46 10*3/uLOhioHealthMonocytes/100 WBC (Bld)10.0 %OhioHealthNeutrophils #/vol (Bld)3.03 10*3/uLOhioHealth Neutrophils/100 WBC (Bld)65.7 %OhioHealthNucleated RBC #/vol (Bld)0.00 10*3/uL OhioHealthNucleated RBC/100 WBC Ratio (Bld)0.0 %OhioHealthPlatelet mean volume Entitic volume (Bld)8.5 fLLow9 - 15.5 fLOhioHealthPlatelets #/vol (Bld)248 10*3/uLOhioHealthRBC #/vol (Bld)3.36 10*6/uLLowOhioHealthWBC #/vol (Bld)4.62 10*3/uLOhioHealthCRP, Inflammationon 92-50-3936XUE mass conc12.5 mg/LHigh0 - 10 mg/LOhioHealthInterpretation and review of laboratory resultsAbnoMercy Hospital Comprehensive Metabolic Panelon 98-53-2870Qdythpb mass conc3.5 g/dL3.2 - 5.2 g/dLOhioHealthALP enzyme act/jxq876 U/L40 - 150 U/LOhioHealthALT enzyme act/vol 25 U/L0 - 40 U/LOhioHealthAnion gap molar conc16 mmol/L10 - 20 mmol/LOhioHealth AST enzyme act/vol25 U/L0 - 45 U/LOhioHealthBilirubin mass conc0.5 mg/dL0 - 1.3 mg/dLOhioHealthCalcium mass conc9.3 mg/dL8.4 - 10.2 mg/dLOhioHealthChloride molar ylfd361 mmol/L98 - 108 mmol/LOhioHealthCreatinine mass conc0.92 mg/dL0.8 - 1.3 mg/dLOhioHealthGFR/1.73 sq M predicted among non-blacks MDRD vol rate/area (S/P/Bld)The eGFR should be used for monitoring renal function only and not for medication dosing.OhioHealthGFR/1.73 sq M.predicted CKD-EPI vol rate/area (S/P/Bld)79>=60 mL/min/1.73 s8AlggJvcgaqGbcdcgl mass conc94 mg/dL65 - 99 mg/dL OhioHealthHCO3 molar conc26 mmol/L21 - 32 mmol/LOhioHealthInterpretation and review of laboratory resultsNoOhioHealth Marion General HospitalthPotassium molar conc4.6 mmol/L3.5 - 5.1 mmol/LOhioHealthProtein mass conc6.9 g/dL6 - 8 g/dLOhioHealthSodium molar yrvh260 mmol/L135 - 145 mmol/LOhioHealthUrea nitrogen mass conc12 mg/dL8 - 25 mg/dLOhioHealthUrea nitrogen/Creatinine mass ratio13.0 mg/mgOhioHealthHemoglobin A1con 18-85-5500Yjhvvha glucose Estimated from glycated hemoglobin mass conc (Bld)88 mg/dL68 - 126 mg/dLOhioHealthHemoglobin A1c/Hemoglobin.total mass fraction (Bld)4.7 %4.2 - 6 %OhioHealthInterpretation and review of laboratory resultsNormalOhioHealthSedimentation Rateon 84-97-1856QGE Velocity (Bld)9 mm/h [place] DakotaHealthInterpretation and review of laboratory resultsNormalOhioHealthXR FOOT LEFT 3+ VIEWS (STANDARD)on 52-51-4214PO FOOT LEFT 3+ VIEWS (STANDARD) EXAMINATION: 3 [...] is clinically warranted, consider MRI or CT. [facility] Workstation ID: [id number] Dictated by: MOJGAN PINO on MonOct 04, 2018 7:30:36 PM EST Transcribed by: RACHEAL ARZATE on Prerna Oct 04, 2018 7:42:46 PM EST Finalized by: MOJGAN PINO on [facility] Oct 06, 2018 3:44:00 PM [facility] HospitalComment on above:Order Comment: Reason for exam?:Left foot gangrene Injury/Trauma or Illness?:Illness/Other How long have you had these symptoms (acute/chronic)?:Unknown History of cancer?:unk Surgeries, chemotherapy, or radiation?:unk Type of Exam?:Unknown Additional signs and symptoms?:Left foot gangreneAlbuminon 77-35-4874Lrcnnpc mass conc3.3 g/dL3.2 - 5.2 g/dLOhioHealthInterpretation and review of laboratory resultsNormalOhioHealthOtheron 17-72-0762Ht acute osseous abnormalities identified. Status post remote ORIF of the distal fibula. Extensive vascular calcifications. [employer] Workstation ID: [id number]: XR FOOT LEFT 3+ [...] osseous lesions or bony demineralization. Extensive vascular calcifications.[facility], [facility] - 09/21/2018 12:01 [...] of the distal fibula. Extensive vascular calcifications. Sonar.me/[employer] Workstation ID: [id number] and review of laboratory results AbnormalOhioHealthPrealbuminon 73-55-7663Aldubdofbu mass conc16.7 mg/dLLow20 - 40 mg/dLOhioHealthProtein,Totalon 39-64-9944Adniepy mass conc5.9 g/dLLow6 - 8 g/dLOhioHealthBasic Metabolic Panelon 32-89-4336Dkzzs gap molar conc12 mmol/L10 - 20 mmol/LOhioHealthCalcium mass conc8.9 mg/dL8.4 - 10.2 mg/dLOhioHealth Chloride molar caki463 mmol/L98 - 108 mmol/LOhioHealthCreatinine mass conc0.56 mg/dLLow0.8 - 1.3 mg/dLOhioHealthGFR/1.73 sq M predicted among non-blacks MDRD vol rate/area (S/P/Bld)The eGFR should be used for monitoring renal function only and not for medication dosing.[facility] HospitalGFR/1.73 sq M.predicted CKD-EPI vol rate/area (S/P/Bld)98>=60 mL/min/1.73 k5JoiiKfejbaEkqkdjq mass uyyc227 mg/dL High65 - 99 mg/dLOhioHealthHCO3 molar conc24 mmol/L21 - 32 mmol/LOhioHealth Interpretation and review of laboratory resultsAbnormalOhioHealthPotassium molar conc4.0 mmol/L3.5 - 5.1 mmol/LOhioHealthSodium molar sefs558 mmol/IYem931 - 145 mmol/LOhioHealthUrea nitrogen mass conc12 mg/dL8 - 25 mg/dLOhioHealthUrea nitrogen/Creatinine mass ratio21.4 mg/mgHighOhioHealthCBCon 09-13-2018 Erythrocyte distribution width Entitic volume (RBC)14.1 %11.6 - 14.8 %[facility] Hematocrit Volume Fraction (Bld)25.4 %Low41 - 53 %OhioHealthHemoglobin mass conc (Bld)8.6 g/dLLow13.5 - 17.5 g/dLOhioHealthInterpretation and review of laboratory resultsAbnormRegional Medical Center Entitic mass (RBC)31.2 pg26 - 34 pg [facility] SystemHC mass conc (RBC)33.9 g/dL31 - 37 g/dLOhioHealthComment on above: Cold Agglutinin presentV Entitic volume (RBC)92.0 fL80 - 100 fLOhioHealth Nucleated RBC #/vol (Bld)0.00 10*3/uLOhioHealthNucleated RBC/100 WBC Ratio (Bld) 0.0 %OhioHealthPlatelet mean volume Entitic volume (Bld)10.0 fL9 - 15.5 fL OhioHealthPlatelets #/vol (Bld)258 10*3/uLOhioHealthRBC #/vol (Bld)2.76 10*6/uL LowOhioHealthWBC #/vol (Bld)9.14 10*3/uLOhioHealthHemoglobin and Hematocriton 87-29-3884Aehpybgsro Volume Fraction (Bld)24.1 %Low41 - 53 %OhioHealthHemoglobin mass conc (Bld)7.7 g/dLLow13.5 - 17.5 g/dLOhioHealthInterpretation and review of laboratory resultsAbnormalOSelect Medical Specialty Hospital - AkronthPT/INRon 08-97-5503QBZ Coag RelTime (PPP) 1.2 {INR}HighOhioHealthInterpretation and review of laboratory resultsAbnormal [facility] HospitalProthrombin time (PT) Coag time (PPP)14.9 sHighOOhio State Health SystemealthDuring the induction phase of oral anticoagulation, the INR may not reflect the anticoagulation status of the patient. Therapeutic ranges for INR's are: Most clinical situations: INR 2.0-3.0 Mechanical Prosthetic Valve: INR 2.5-3.5 Critical: INR >5.0OhioHealthBasic Metabolic Panelon 35-14-7102Wqfbd gap molar conc11 mmol/L10 - 20 mmol/LOhioHealthCalcium mass conc8.6 mg/dL8.4 - 10.2 mg/dL OhioPomerene HospitalChloride molar conc97 mmol/LLow98 - 108 mmol/LOhioHealthCreatinine mass conc0.78 mg/dLLow0.8 - 1.3 mg/dLOhioHealthGFR/1.73 sq M predicted among non-blacks MDRD vol rate/area (S/P/Bld)The eGFR should be used for monitoring renal function only and not for medication dosing.OhioHealthGFR/1.73 sq M.predicted CKD-EPI vol rate/area (S/P/Bld)86>=60 mL/min/1.73 v0HorhJhchnr Glucose mass cpdg089 mg/oCOycg15 - 99 mg/dLOhioHealthHCO3 molar conc26 mmol/L21 - 32 mmol/LOhioHealthInterpretation and review of laboratory resultsAbnormal OhioHealthPotassium molar conc4.7 mmol/L3.5 - 5.1 mmol/LOhioHealthSodium molar gaej257 mmol/RZky419 - 145 mmol/LOhioHealthUrea nitrogen mass conc12 mg/dL8 - 25 mg/dLOhioHealthUrea nitrogen/Creatinine mass ratio15.4 mg/mgOhioHealthCBCon 54-95-5040Jydqorbrfuc distribution width Entitic volume (RBC)13.8 %11.6 - 14.8 % [facility] HospitalHematocrit Volume Fraction (Bld)25.6 %Low41 - 53 %OhioPomerene HospitalHemoglobin mass conc (Bld)8.9 g/dLLow13.5 - 17.5 g/dLOhioHealthInterpretation and review of laboratory resultsAbnormalOhioHealSaint Margaret's Hospital for WomenH Entitic mass (RBC)31.4 pg26 - 34 pg [facility] SystemHC mass conc (RBC)34.8 g/dL31 - 37 g/dLOhioHealthComment on above: Cold Agglutinin presentMCV Entitic volume (RBC)90.5 fL80 - 100 fLOhioHealth Nucleated RBC #/vol (Bld)0.00 10*3/uLOhioHealthNucleated RBC/100 WBC Ratio (Bld) 0.0 %OhioPomerene HospitalPlatelet mean volume Entitic volume (Bld)10.0 fL9 - 15.5 fL OhioHealthPlatelets #/vol (Bld)272 10*3/uLOhioHealthRBC #/vol (Bld)2.83 10*6/uL LowOhioHealthWBC #/vol (Bld)10.20 10*3/uLOhioHealthWhile on heparinOhioHealth Erythrocyte distribution width Entitic volume (RBC)14.1 %11.6 - 14.8 %[facility] Hematocrit Volume Fraction (Bld)24.2 %Low41 - 53 %OhioHealthHemoglobin mass conc (Bld)8.2 g/dLLow13.5 - 17.5 g/dLOhioHealthInterpretation and review of laboratory resultsAbnormalOhiSDealSaint Margaret's Hospital for WomenH Entitic mass (RBC)30.5 pg26 - 34 pg OhioPomerene HospitalMCHC mass conc (RBC)33.9 g/dL31 - 37 g/dLOhioHealthComment on above: Cold Agglutinin presentV Entitic volume (RBC)90.0 fL80 - 100 fLOhioHealth Nucleated RBC #/vol (Bld)0.00 10*3/uLOhioHealthNucleated RBC/100 WBC Ratio (Bld) 0.0 %[facility] HospitalPlatelet mean volume Entitic volume (Bld)9.8 fL9 - 15.5 fL OhioHealthPlatelets #/vol (Bld)246 10*3/uLOhioHealthRBC #/vol (Bld)2.69 10*6/uL LowOhioHealthWBC #/vol (Bld)9.04 10*3/uLOhioHealthHemoglobin and Hematocriton 78-32-0257Mcwneneqkr Volume Fraction (Bld)20.5 %Low41 - 53 %[facility] HospitalHemoglobin mass conc (Bld)8.1 g/dLLow13.5 - 17.5 g/dLOhioHealthComment on above:Peripheral smear reviewed manuallyInterpretation and review of laboratory resultsAbnormal [facility] HospitalPT/INRon 65-87-6485MEU Coag RelTime (PPP)1.2 {INR}HighNhioHealth Interpretation and review of laboratory resultsAbnoMercy HospitalProthrombin time (PT) Coag time (PPP)14.6 sHighOOhio State Health SystemealthDuring the induction phase of oral anticoagulation, the INR may not reflect the anticoagulation status of the patient. Therapeutic ranges for INR's are: Most clinical situations: INR 2.0-3.0 Mechanical Prosthetic Valve: INR 2.5-3.5 Critical: INR >5.0OhioHealthBasic Metabolic Panelon 33-44-1990Rzpjk gap molar conc15 mmol/L10 - 20 mmol/L OhioHealthCalcium mass conc8.9 mg/dL8.4 - 10.2 mg/dLOhioHealthChloride molar conc95 mmol/LLow98 - 108 mmol/LOhioHealthCreatinine mass conc0.65 mg/dLLow0.8 - 1.3 mg/dLOhioHealthGFR/1.73 sq M predicted among non-blacks MDRD vol rate/area (S/P/Bld)The eGFR should be used for monitoring renal function only and not for medication dosing.OhioHealthGFR/1.73 sq M.predicted CKD-EPI vol rate/area (S/P/Bld)93>=60 mL/min/1.73 c3QtyjZhjmfdLqhigct mass lxbk496 mg/xLXdga49 - 99 mg/dLOhioHealthHCO3 molar conc26 mmol/L21 - 32 mmol/LOhioHealthInterpretation and review of laboratory resultsAbnormalOhioHealthPotassium molar conc4.8 mmol/L 3.5 - 5.1 mmol/LOhioHealthComment on above:Slightly HemolyzedSodium molar conc 131 mmol/MYzn247 - 145 mmol/LOhioHealthUrea nitrogen mass conc11 mg/dL8 - 25 mg/dLOhioHealthUrea nitrogen/Creatinine mass ratio16.9 mg/mgOhioHealthCBCon 48-76-3875Plrhajjwatr distribution width Entitic volume (RBC)13.3 %11.6 - 14.8 % [facility] HospitalHematocrit Volume Fraction (Bld)24.4 %Low41 - 53 %OhioPomerene HospitalHemoglobin mass conc (Bld)8.1 g/dLLow13.5 - 17.5 g/dLOhioHealthInterpretation [...] (Bld)2.66 10*6/uL LowOhioHealthWBC #/vol (Bld)7.28 10*3/uLOhioHealthPREPARE RBCon 11-24-3147LHB and Rh group Nom (Bld)O PosOhioHealthABO and Rh group Nom (Bld)5100OhioHealth Cross MatchCompatibleOhioHealthProtein mass concRed Blood CellsOhioHealthProtein mass tspqB5644X58JmslBuodwnGnviks InfoTransfusedOhioHealthUnit Number [id number]/INRon 44-67-1713DYL Coag RelTime (PPP)1.2 {INR}High OhioHealthInterpretation and review of laboratory resultsAbnormalOhioHealth Prothrombin time (PT) Coag time (PPP)14.7 sHighOhioHealthDuring the induction phase of oral anticoagulation, the INR may not reflect the anticoagulation stat us of the patient. Therapeutic ranges for INR's are: Most clinical situations: INR 2.0-3.0 Mechanical Prosthetic Valve: INR 2.5-3.5 Critical: INR >5.0 OhioHealthType and Screenon 15-39-8435PGK and Rh group Nom (Bld)O Positive OhioHealthBlood group antibody screen QlNegativeOhioHealthSpecimen Expires 09/14/2018 23:59 ESTOhioHealthBasic Metabolic Panelon 09-27-2037Tonud gap molar conc13 mmol/L10 - 20 mmol/LOhioHealthCalcium mass conc8.9 mg/dL8.4 - 10.2 mg/dL OhioHealthChloride molar conc99 mmol/L98 - 108 mmol/LOhioHealthCreatinine mass conc0.67 mg/dLLow0.8 - 1.3 mg/dLOhioHealthGFR/1.73 sq M predicted among non- blacks MDRD vol rate/area (S/P/Bld)The eGFR should be used for monitoring renal function only and not for medication dosing.OhioHealthGFR/1.73 sq M.predicted CKD-EPI vol rate/area (S/P/Bld)91>=60 mL/min/1.73 j8PdbjHaphadTsnokdk mass conc 116 mg/wZTvzo97 - 99 mg/dLOhioHealthHCO3 molar conc27 mmol/L21 - 32 mmol/L OhioHealthInterpretation and review of laboratory resultsAbnormalOhiRegency Hospital [facility]edo Potassium molar conc4.6 mmol/L3.5 - 5.1 mmol/LOhioHealthSodium molar hwwv202 mmol/ULqz983 - 145 mmol/LOhioHealthUrea nitrogen mass conc12 mg/dL8 - 25 mg/dL OhioPomerene HospitalUrea nitrogen/Creatinine mass ratio17.9 mg/mgOhioHealthCBCon 41-21-1999Bfrcfhfllht distribution width Entitic volume (RBC)13.2 %11.6 - 14.8 % OhioHealthHematocrit Volume Fraction (Bld)22.2 %Low41 - 53 %OhioPomerene HospitalHemoglobin mass conc (Bld)7.6 g/dLLow13.5 - 17.5 g/dLOhioHealthInterpretation and review of laboratory resultsAbnormalOhioHealthMCH Entitic mass (RBC)32.5 pg26 - 34 pg OhioHealthMCHC mass conc (RBC)34.2 g/dL31 - 37 g/dLBlanchard Valley Health System [facility] HospitalMCV Entitic volume (RBC)94.9 fL80 - 100 [...] 17.5 g/dL OhioHealthInterpretation and review of laboratory resultsAbnormalOBlanchard [facility] Entitic mass (RBC)32.1 pg26 - 34 pgOhioHealthMCHC mass conc (RBC)34.1 g/dL31 - 37 g/dLMemorial Health SystemV Entitic volume (RBC)94.0 fL80 - 100 fLOhioHealthNucleated RBC #/vol (Bld)0.00 10*3/uLOhioHealthNucleated RBC/100 WBC Ratio (Bld)0.0 % [facility] HospitalPlatelet mean volume Entitic volume (Bld)9.2 fL9 - 15.5 fLOhioHealth Platelets #/vol (Bld)234 10*3/uLOhioHealthRBC #/vol (Bld)2.34 10*6/uLLow OhioHealthWBC #/vol (Bld)7.34 10*3/uLOhioHealthEKGon 88-35-7126Kfrabwx by an unspecified provider. OhioHealthPT/INRon 82-70-7193QIO Coag RelTime (PPP)1.2 {INR}[facility] Interpretation and review of laboratory resultsAbnoMercy HospitalProthrombin time (PT) Coag time (PPP)14.4 sHighOOhio State Health SystemealthDuring the induction phase of oral anticoagulation, the INR may not reflect the anticoagulation status of the patient. Therapeutic ranges for INR's are: Most clinical situations: INR 2.0-3.0 Mechanical Prosthetic Valve: INR 2.5-3.5 Critical: INR >5.0OhioHealthUS Doppler ankle/brachial indexon 85-78-4627Evk-Invasive Vascular Patient: SHERRY [facility] Rec#: [id number] (Age): 1940(78y) Study Date: 09/10/2018 Room#: 8506 Type: Inpatient Sex: M Reading: [place] Reading: Ben Hahn MD, RPVI Referring: Esau Alejandro Insurance Agent: Andre Madrid RDCS/RVT Procedure Info: [id number] Study Quality: Lower Arterial Doppler: adequate Diagnosis: [...] 09/10/2018 17:30:46 by: Ben Hahn MD, RPLUIZA [facility] - 09/10/2018 5:37 PM EST Non- Invasive Vascular Patient: SHERRY [facility] Rec#: [id number] (Age): 1940(78y) Study Date: 09/10/2018 Room#: 8506 Type: Inpatient Sex: M Reading: [place] Reading: Ben Hahn MD, JEOVANYVI Referring: Esau Alejandro Insurance Agent: Andre Madrid RDCS/RVLatricia Procedure Info: [id number] Study Quality: Lower Arterial Doppler: adequate Diagnosis: [...] 09/10/2018 17:30:46 by: Ben Hahn MD, RPVI [facility] Metabolic Panelon 99-91-0846Orvmh gap molar conc12 mmol/L10 - 20 mmol/LOhioHealthCalcium mass conc8.9 mg/dL8.4 - 10.2 mg/dLOhioHealthChloride molar conc99 mmol/L98 - 108 mmol/LOhioHealthCreatinine mass conc0.71 mg/dLLow0.8 - 1.3 mg/dLOhioHealthGFR/1.73 sq M predicted among non-blacks MDRD vol rate/area (S/P/Bld)The eGFR should be used for monitoring renal function only and not for medication dosing.[place] DakotaHealthGFR/1.73 sq M.predicted CKD-EPI vol rate/area (S/P/Bld)89>=60 mL/min/1.73 g6GbidLntmyeAmggimi mass pfiu031 mg/dLHigh 65 - 99 mg/dLOhioHealthHCO3 molar conc28 mmol/L21 - 32 mmol/LOhioHealth Interpretation and review of laboratory resultsAbnormalOhioHealthPotassium molar conc4.3 mmol/L3.5 - 5.1 mmol/LOhioHealthSodium molar vdhx103 mmol/L135 - 145 mmol/LOhioHealthUrea nitrogen mass conc13 mg/dL8 - 25 mg/dLOhioHealthUrea nitrogen/Creatinine mass ratio18.3 mg/mgOhioHealthCBCon 65-60-3134Srbysqbeabx distribution width Entitic volume (RBC)13.2 %11.6 - 14.8 %[facility] HospitalHematocrit Volume Fraction (Bld)23.0 %Low41 - 53 %OhioHealthHemoglobin mass conc (Bld)7.7 g/dLLow13.5 - 17.5 g/dLOhioHealthComment on above:Cold Agglutinin present Interpretation and review of laboratory resultsAbnormalOhioHealthMCH Entitic mass (RBC)30.4 pg26 - 34 pgOhioHealthMCHC mass conc (RBC)33.5 g/dL31 - 37 g/dL [facility]MC[facility] Entitic volume (RBC)90.9 fL80 - 100 fLOhioHealthNucleated RBC #/vol (Bld)0.00 10*3/uLOhioHealthNucleated RBC/100 WBC Ratio (Bld)0.0 % [facility] HospitalPlatelet mean volume Entitic volume (Bld)9.4 fL9 - 15.5 fLOhioHealth Platelets #/vol (Bld)207 10*3/uLOhioHealthRBC #/vol (Bld)2.53 10*6/uLLow OhioHealthWBC #/vol (Bld)6.48 10*3/uLOhioHealthHemoglobin and Hematocriton 05-64-8695Ytzvfigidm Volume Fraction (Bld)22.8 %Low41 - 53 %OhioHealthHemoglobin mass conc (Bld)8.0 g/dLLow13.5 - 17.5 g/dLOhioHealthInterpretation and review of laboratory resultsAbnormalOhioHealthHematocrit Volume Fraction (Bld)22.9 %Low 41 - 53 %OhioHealthHemoglobin mass conc (Bld)7.7 g/dLLow13.5 - 17.5 g/dL OhioHealthInterpretation and review of laboratory resultsAbnormalOhioHealth PT/INRon 24-56-9246LAL Coag RelTime (PPP)1.2 {INR}HighOhioHealthInterpretation and review of laboratory resultsAbnormalOhioHealthProthrombin time (PT) Coag time (PPP)15.1 sHighOhioHealthDuring the induction phase of oral anticoagulation, the INR may not reflect the anticoagulation status of the patient. Therapeutic ranges for INR's are: Most clinical situations: INR 2.0-3.0 Mechanical Prosthetic Valve: INR 2.5-3.5 Critical: INR >5.0OhioHealthBasic Metabolic Panelon 62-60-1132Kyyup gap molar conc16 mmol/L10 - 20 mmol/L OhioHealthCalcium mass conc9.0 mg/dL8.4 - 10.2 mg/dLOhioHealthChloride molar conc99 mmol/L98 - 108 mmol/LOhioHealthCreatinine mass conc0.56 mg/dLLow0.8 - 1.3 mg/dLOhioHealthGFR/1.73 sq M predicted among non-blacks MDRD vol rate/area (S/P/Bld)The eGFR should be used for monitoring renal function only and not for medication dosing.OhioHealthGFR/1.73 sq M.predicted CKD-EPI vol rate/area (S/P/Bld)98>=60 mL/min/1.73 s6YowsOybnyoUzmmxkd mass wbev879 mg/yFYome97 - 99 mg/dLOhioHealthHCO3 molar conc23 mmol/L21 - 32 mmol/LOhioHealthInterpretation and review of laboratory resultsAbnormalOhioHealthPotassium molar conc4.5 mmol/L 3.5 - 5.1 mmol/LOhioHealthSodium molar tban157 mmol/PWfd780 - 145 mmol/L OhioHealthUrea nitrogen mass conc8 mg/dL8 - 25 mg/dLOhioHealthUrea nitrogen/Creatinine mass ratio14.3 mg/mgOhioHealthCBCon 32-43-5149Qmovclbddbk distribution width Entitic volume (RBC)12.9 %11.6 - 14.8 %[facility] HospitalHematocrit Volume Fraction (Bld)29.9 %Low41 - 53 %[facility] HospitalHemoglobin mass conc (Bld)10.0 g/dLLow13.5 - 17.5 g/dLOhioHealthInterpretation and review of laboratory results AbnormalOhioHealthH Entitic mass (RBC)30.3 pg26 - 34 pgOhioHealthMCHC mass conc (RBC)33.4 g/dL31 - 37 g/dLOhioHealthComment on above:Cold Agglutinin presentMCV Entitic volume (RBC)90.6 fL80 - 100 fLOhioHealthNucleated RBC #/vol (Bld)0.00 10*3/uLOhioHealthNucleated RBC/100 WBC Ratio (Bld)0.0 %[facility] Platelet mean volume Entitic volume (Bld)10.5 fL9 - 15.5 fLOhioHealthPlatelets #/vol (Bld)209 10*3/uLOhioHealthRBC #/vol (Bld)3.30 10*6/uLLowOhioHealthWBC #/vol (Bld)11.23 10*3/uLHighOhioHealthPT/INRon 68-26-9365BED Coag RelTime (PPP) 1.2 {INR}HighOhioHealthInterpretation and review of laboratory resultsAbnormal [facility] HospitalProthrombin time (PT) Coag time (PPP)14.9 sHighOhioHealthDuring the induction phase of oral anticoagulation, the INR may not reflect the anticoagulation status of the patient. Therapeutic ranges for INR's are: Most clinical situations: INR 2.0-3.0 Mechanical Prosthetic Valve: INR 2.5-3.5 Critical: INR >5.0OhioHealthXR Fluoroscopy Timeon 56-95-7265Lkmb is an auto finalized result. Please refer to patient chart for further information. OhioHealthXR OR Angio Addon 55-17-0410Izns is an auto finalized result. Please refer to patient chart for further information.OhioHealthAPTTon 75-56-8880iJNH Coag time (Bld)74 sHighOhioHealthaPTT Coag time (Bld)Therapeutic range for APTT's is 68 - 104 secondsOhioHealthInterpretation and review of laboratory resultsAbnormalOhioHealthaPTT Coag time (Bld)47 sHighOhioHealthaPTT Coag time (Bld)Therapeutic range for APTT's is 68 - 104 secondsOhioHealthaPTT Coag time (Bld)38 sHighOhioHealthaPTT Coag time (Bld)Results checked. Therapeutic range for APTT's is 68 - 104 secondsOhioHealthInterpretation and review of laboratory resultsAbnormalOhioHealthBasic Metabolic Panelon 02-69-0154Mixny gap molar conc 15 mmol/L10 - 20 mmol/LOhioHealthCalcium mass conc9.4 mg/dL8.4 - 10.2 mg/dL OhioHealthChloride molar conc99 mmol/L98 - 108 mmol/LOhioHealthCreatinine mass conc0.69 mg/dLLow0.8 - 1.3 mg/dLOhioHealthGFR/1.73 sq M predicted among non- blacks MDRD vol rate/area (S/P/Bld)The eGFR should be used for monitoring renal function only and not for medication dosing.OhioHealthGFR/1.73 sq M.predicted CKD-EPI vol rate/area (S/P/Bld)90>=60 mL/min/1.73 i8BumzIhoahdTrhjcwj mass conc 110 mg/uXWrcb37 - 99 mg/dLOhioHealthHCO3 molar conc25 mmol/L21 - 32 mmol/L OhioHealthInterpretation and review of laboratory resultsAbnormCoshocton Regional Medical Centerealth Potassium molar conc4.0 mmol/L3.5 - 5.1 mmol/LOhioHealthSodium molar ukyj340 mmol/L135 - 145 mmol/LOhioHealthUrea nitrogen mass conc9 mg/dL8 - 25 mg/dL OhioHealthUrea nitrogen/Creatinine mass ratio13.0 mg/mgOhioHealthCBCon 87-66-5099Vqxljrcmkpi distribution width Entitic volume (RBC)12.9 %11.6 - 14.8 % OhioHealthHematocrit Volume Fraction (Bld)31.6 %Low41 - 53 %OhioHealthHemoglobin mass conc (Bld)10.8 g/dLLow13.5 - 17.5 g/dLOhioHealthInterpretation and review of laboratory resultsAbnormalOhioHealFostoria City Hospital Entitic mass (RBC)30.9 pg26 - 34 pg [facility] SystemHC mass conc (RBC)34.2 g/dL31 - 37 g/dLOhioHealthComment on above: Cold Agglutinin presentV Entitic volume (RBC)90.3 fL80 - 100 fLOhioHealth Nucleated RBC #/vol (Bld)0.00 10*3/uLOhioHealthNucleated RBC/100 WBC Ratio (Bld) 0.0 %OhioHealthPlatelet mean volume Entitic volume (Bld)10.1 fL9 - 15.5 fL OhioHealthPlatelets #/vol (Bld)212 10*3/uLOhioHealthRBC #/vol (Bld)3.50 10*6/uL LowOhioHealthWBC #/vol (Bld)5.93 10*3/uLOhioHealthOtheron 09-07-2018 Interpretation and review of laboratory resultsAbnormalOhioHealthPT/INRon 76-12-9018FEL Coag RelTime (PPP)1.2 {INR}HighOhioHealthProthrombin time (PT) Coag time (PPP)14.7 sHighOhioHealthDuring the induction phase of oral anticoagulation, the INR may not reflect the anticoagulation status of the patient. Therapeutic ranges for INR's are: Most clinical situations: INR 2.0-3.0 Mechanical Prosthetic Valve: INR 2.5-3.5 Critical: INR >5.0OhioHealthXR Chest 1 Viewon 19-64-9066Scxdszotm, Rad In [facility] Speechq - 09/07/2018 9:53 AM EST EXAMINATION: AP CHEST HISTORY: Hypoxia. COMPARISON: [facility] 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 Coronary artery stents are visualized. Minimal linear scarring at the lung bases, unchanged. No pneumothorax. No definite pleural effusion no new opacities. IMPRESSION: Stable chest. No acute disease. [facility] Workstation ID: [id number]: AP CHEST HISTORY: Hypoxia. COMPARISON: 08[facility]. 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 Coronary artery stents are visualized. Minimal linear scarring at the lung bases, unchanged. No pneumothorax. No definite pleural effusion no new opacities.OhioHealthStable chest. No acute disease. [facility] Workstation ID: [id number] VERIFICATIONon 13-44-6845FKK and Rh group Nom (Bld)O PositiveOhioHealthABO and Rh group Nom (Bld)ABO/Rh VerificationOhioHealthPatient's ABO/Rh is verified. [facility] Metabolic Panelon 55-63-2585Hryun gap molar conc13 mmol/L10 - 20 mmol/LOhioHealthCalcium mass conc9.5 mg/dL8.4 - 10.2 mg/dLOhioHealthChloride molar pfos255 mmol/L98 - 108 mmol/LOhioHealthCreatinine mass conc0.68 mg/dLLow 0.8 - 1.3 mg/dLOhioHealthGFR/1.73 sq M predicted among non-blacks MDRD vol rate/area (S/P/Bld)The eGFR should be used for monitoring renal function only and not for medication dosing.[facility] DakotaHealthGFR/1.73 sq M.predicted CKD-EPI vol rate/area (S/P/Bld)91>=60 mL/min/1.73 o4XqsmFdngbpCbiiczt mass conc98 mg/dL65 - 99 mg/dLOhioHealthHCO3 molar conc27 mmol/L21 - 32 mmol/LOhioHealthInterpretation and review of laboratory resultsAbnormalOhioHealthPotassium molar conc4.2 mmol/L3.5 - 5.1 mmol/LOhioHealthSodium molar fvtn913 mmol/L135 - 145 mmol/L OhioHealthUrea nitrogen mass conc9 mg/dL8 - 25 mg/dLOhioHealthUrea nitrogen/Creatinine mass ratio13.2 mg/mgOhioHealthCBCon 14-11-3874Zavfrpacjji distribution width Entitic volume (RBC)13.1 %11.6 - [...] #/vol (Bld)7.03 10*3/uL OhioHealthSaphenous vein mapping, limitedon 90-97-3685Nrvafyreu, Rad In Heartlab Xper Echopacs - 09/06/2018 11:52 AM EST Non-Invasive Vascular Patient: SHERRY Jones Rec#: [id number] (Age): 1940(78y) Study Date: 09/06/2018 Room#: 3386 Type: Inpatient Sex: M Reading: Manuel Leonard MD, NATANAEL, RVT Referring: ARISTEO Insurance Agent: Conrad Jeffers RDCS, RVT Procedure Info: [id number] Study Quality: Lower Vein Map: limited Study [...] 09/06/2018 11:49:41 by: Manuel Leonard MD, NATANAEL, LIANNEParkwood HospitalNon-Invasive Vascular Patient: SHERRY [facility] Rec#: [id number] (Age): 1940(78y) Study Date: 09/06/2018 Room#: 3386 Type: Inpatient Sex: M Reading: Manuel Leonard MD, NATANAEL, DENIZT Referring: ARISTEO Insurance Agent: Conrad Jeffers RDCS, RVT Procedure Info: [id number] Study Quality: Lower Vein Map: limited Study [...] Leonard MD, RPVI, RVT OhioHealthType and Screenon 84-01-8046FJK and Rh group Nom (Bld)O Positive OhioPomerene HospitalBlood group antibody screen QlNegativeOhioHealthSpecimen Expires 09/09/2018 23:59 ESTOhioHealthAPTTon 70-81-9800lRVR Coag time (Bld)Therapeutic range for APTT's is 68 - 104 secondsOhioHealthaPTT Coag time (Bld)59 [facility] HospitalInterpretation and review of laboratory resultsAbnormalOhioHealthaPTT Coag time (Bld)50 sHighOhioHealthaPTT Coag time (Bld)Therapeutic range for APTT's is 68 - 104 secondsOhioHealthBasic Metabolic Panelon 10-82-5912Wdunv gap molar conc14 mmol/L10 - 20 mmol/LOhioHealthCalcium mass conc9.3 mg/dL8.4 - 10.2 mg/dLOhioHealthChloride molar ldit952 mmol/L98 - 108 mmol/LOhioHealthCreatinine mass conc0.65 mg/dLLow0.8 - 1.3 mg/dLOhioHealthGFR/1.73 sq M predicted among non-blacks MDRD vol rate/area (S/P/Bld)The eGFR should be used for monitoring renal function only and not for medication dosing.OhioHealthGFR/1.73 sq M.predicted CKD-EPI vol rate/area (S/P/Bld)93>=60 mL/min/1.73 a2OudkVapzyw Glucose mass conc91 mg/dL65 - 99 mg/dLOhioHealthHCO3 molar conc25 mmol/L21 - 32 mmol/LOhioHealthPotassium molar conc3.9 mmol/L3.5 - 5.1 mmol/LOhioHealthSodium molar txha027 mmol/L135 - 145 mmol/LOhioHealthUrea nitrogen mass conc6 mg/dLLow8 - 25 mg/dLOhioHealthUrea nitrogen/Creatinine mass ratio9.2 mg/mgLowOhioHealth CARDIAC CATHETERIZATIONon 40-24-0301Ugugjpqmo, Rad In Heartlab Xper Echopacs - 09/05/2018 4:14 PM EST Patient Name: TRISTIN POWELL Date of : 1940 Procedure Date: 09/05/2018 Physician(s): Ben Hahn MD Cath #: [id number] Ref. 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 Dyslipidemia: Yes Hypertension: Yes Pre-OP Diagnosis/Indication: [place] Class/Limb Ischemia: 4 - Ischemic rest pain [...] amputation COMMENTS: No Complications ____ Equipment: Sheath(s) ReInnervate 5F 10CM PINNACLE SHEATH The ADEX 6F 45CM .038 FLEXOR CHECKFLO ANSEL1 SHEATH Wire(s) [employer] .035 X 150CM FIXED J WIRE Catheter(s) [employer] 5F MP TEMPO AQUA CATHETER Other The ADEX .035 CXI ANGLED SUPPORT CATHETERS SHER VASCULAR [...] 09/05/2018 Physician(s): Ben Hahn MD Cath #: [id number] Ref. 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 Dyslipidemia: Yes Hypertension: Yes Pre-OP Diagnosis/Indication: Deann [...] amputation COMMENTS: No Complications ____ Equipment: Sheath(s) ReInnervate 5F 10CM PINNACLE SHEATH The ADEX 6F 45CM .038 FLEXOR CHECKFLO ANSEL1 SHEATH Wire(s) [employer] .035 X 150CM FIXED J WIRE Catheter(s) [employer] 5F MP TEMPO AQUA CATHETER Other The ADEX .035 CXI ANGLED SUPPORT CATHETERS SHER VASCULAR 6F PROGLIDE CLOSURE Peripheral Angiography: Access site: Femoral Right Retrograde arterial with ultrasound guidance Non Selective: Aorta with ilio-fem runoff Selective: Tibioperoneal artery, retrograde - left See Nursing Notes for further details Signed By Ben Hahn MD On 09/05/20183:50:45 PM Ben Hahn MD ____ OhioHealthCBCon 14-02-0301Fnmxnlvjzmr distribution width Entitic volume (RBC) 12.8 %11.6 - 14.8 %OhioHealthHematocrit Volume Fraction (Bld)31.8 %Low41 - 53 % OhioHealthHemoglobin mass conc (Bld)10.7 g/dLLow13.5 - 17.5 g/dLNhioHealth Interpretation and review of laboratory resultsAbnormalOhioHealthMCH Entitic mass (RBC)30.5 pg26 - 34 pgOhioHealthMCHC mass conc (RBC)33.6 g/dL31 - 37 g/dL OhioHealthMCV Entitic volume (RBC)90.6 fL80 - 100 fLOhioHealthNucleated RBC #/vol (Bld)0.00 10*3/uLOhioHealthNucleated RBC/100 WBC Ratio (Bld)0.0 % OhioHealthPlatelet mean volume Entitic volume (Bld)9.2 fL9 - 15.5 fLOhioHealth Platelets #/vol (Bld)224 10*3/uLOhioHealthRBC #/vol (Bld)3.51 10*6/uLLow OhioHealthWBC #/vol (Bld)5.56 10*3/uLOhioHealthECG 12-LEADon 98-88-4368Goryso Gohf59TZVLeufKpyjpwM Kydc91yfhsvldGwveVwimjpR-S Ebchszae328 msOhioHealthQ-T Gcztcutj191 msOhioHealthQRS Yindxdtq84 msOhioHealthQTC Calculation (Bezet)474 ms OhioHealthR Uniz25wxmvwxdRntcAxbhfqN Uijn13xdpwpysNpexOmazyzNocqwqigrzk Rate88 BPMOhioHealthNormal sinus rhythm Nonspecific ST and T wave abnormality Abnormal ECG Confirmed by YAW DIAZ, CHAYO ([id number]) on 09/05/2018 7:19:56 PMOhioHealth Atrial Vrep37CDARxucSyvyuqO Yxsz6vlxzqykJjggNdhenlR-O Stuzmwjx249 msOhioHealthQ- T Cqdcrpnt873 msOhioHealthQRS Uqmmlcnk70 msOhioHealthQTC Calculation (Bezet)482 msOhioHealthR Ogvs82oedgeofFmmuAxjacdF Pzth56uvtvgxyQdzrLaclzbRusldqpeqes Rate94 BPMOhioHealthNormal sinus rhythm Prolonged QT Abnormal ECG Confirmed by YAW DIAZ, CHAYO ([id number]) on 09/05/2018 6:55:30 PMOhioHealthOtheron 37-10-6895Wtwpwaxtuznezc and review of laboratory resultsAbnormalOOhio State Health Systemealth Ultrasound duplex arterial leg lefton 64-22-0946Djx-Invasive Vascular Patient: SHERRY [facility] Rec#: [id number] (Age): 1940(78y) Study Date: 09/05/2018 Room#: G93 Type: Inpatient Sex: M Reading: Pierce Moreau DO, RPVI Referring: LEVY Insurance Agent: Rima Celestin RDCS, RVT Insurance Agent: Deena Pelayo RDCS RVT Procedure Info: [id number] Study Quality: Lower Arterial Duplex: adequate Diagnosis: [...] PSV Name Value Units EIA 83.2 cm/sec AIR DUCT MECHANIC 95.6 cm/sec Profunda 85.5 cm/sec SFA - prox -25 cm/sec SFA - mid -67.2 cm/sec SFA - dist 58.2 cm/sec Popliteal - dist 0 cm/sec SENIOR BIOINFORMATICS SPECIALIST 6.8 cm/sec Pre Stenosis #1 9.3 cm/sec Within Stenosis #1 67.2 cm/sec Distal Stenois #1 58.2 cm/sec Left Stent #1 Name Value Units Pre 58.2 cm/sec Orig/Prox 0 cm/sec Mid 0 cm/sec Dist 0 cm/sec Distal To 6.8 cm/sec Electronically signed at 09/05/2018 11:55:51 by: Pierce Moreau DO, RPVI [facility], Rad In Heartlab Xper Echopacs - 09/05/2018 12:10 PM EST Non-Invasive Vascular Patient: SHERRY [facility] Rec#: [id number] (Age): 1940(78y) Study Date: 09/05/2018 Room#: G93 Type: Inpatient Sex: M Reading: Pierce Moreau DO, RPVI Referring: LEVY Insurance Agent: Rima Celestin RDCS, RVT Insurance Agent: Deena Pelayo RDCS RVT Procedure Info: [id number] Study Quality: Lower Arterial Duplex: adequate Diagnosis: [...] PSV Name Value Units EIA 83.2 cm/sec AIR DUCT MECHANIC 95.6 cm/sec Profunda 85.5 cm/sec SFA - prox -25 cm/sec SFA - mid -67.2 cm/sec SFA - dist 58.2 cm/sec Popliteal - dist 0 cm/sec SENIOR BIOINFORMATICS SPECIALIST 6.8 cm/sec Pre Stenosis #1 9.3 cm/sec Within Stenosis #1 67.2 cm/sec Distal Stenois #1 58.2 cm/sec Left Stent #1 Name Value Units Pre 58.2 cm/sec Orig/Prox 0 cm/sec Mid 0 cm/sec Dist 0 cm/sec Distal To 6.8 cm/sec Electronically signed at 09/05/2018 11:55:51 by: Pierce Moreau DO, RPVIOhioHealthAPTTon 46-11-1291gQYR Coag time (Bld)59 sHighOhioHealthaPTT Coag time (Bld)Therapeutic range for APTT's is 68 - 104 secondsOhioHealth Interpretation and review of laboratory resultsAbnormMerged with Swedish HospitaloHealthCBCon 33-22-0420Oqyhkwmloju distribution width Entitic volume (RBC)12.8 %11.6 - 14.8 % [facility] HospitalHematocrit Volume Fraction (Bld)33.3 %Low41 - 53 %[facility] HospitalHemoglobin mass conc (Bld)11.2 g/dLLow13.5 - 17.5 g/dLOhioHealthInterpretation and review of laboratory resultsAbnormRegional Medical Center Entitic mass (RBC)30.2 pg26 - 34 pg [facility] HospitalMCHC mass conc (RBC)33.6 g/dL31 - 37 g/dLOhioHealthComment on above: Cold Agglutinin presentMCV Entitic volume (RBC)89.8 fL80 - 100 fLOhioHealth Nucleated RBC #/vol (Bld)0.00 10*3/uLOhioHealthNucleated RBC/100 WBC Ratio (Bld) 0.0 %OhioHealthPlatelet mean volume Entitic volume (Bld)10.1 fL9 - 15.5 fL OhioHealthPlatelets #/vol (Bld)222 10*3/uLOhioHealthComment on above:Peripheral smear reviewed manuallyRBC #/vol (Bld)3.71 10*6/uLLowOhioHealthWBC #/vol (Bld) 6.36 10*3/uLOhioHealthWhile on heparinOhioHealthOtheron 15-93-2414Hpzjd TubeHold for add-ons.[facility] HospitalComment on above:Auto resulted.XR COMPARISON IMPORTon 58-28-5674Bkhl order has been auto-finalized and does not contain a result. [facility] Vital Signs Date TimeVital SignValuePerforming AwywfzkcdLkhztcae13-11-2937 10:17-0400Body kolouy569 cmRevon Lovelace MD Work Phone: [phone] CashmereKansas City [facility] Medical CenterJnepzpgonf64-89-5103 10:17-0400Body mass index (BMI) [Ratio]31.2 kg/g6JrtjoFlash Lovelace MD Work Phone: [phone] CashmereK[facility] Medical CenterYleihnlvru03-57-9780 10:17-0400Body mpoyxx832.22 kgFlash Lovelace MD Work Phone: [phone] CashmereK[facility] Medical CenterHygdjhfiqt37-37-0490 10:17-0400Diastolic blood dlfsazyq47 mm[Hg]Flash Lovelace MD Work Phone: [phone] CashmereK[facility] Medical CenterIqwdxmiaow58-57-5113 10:17-0400Heart rate84 /min Flash Lovelace MD Work Phone: [phone] CashmereK[facility] Medical CenterAaxuwoccnd44-53-4039 10:178788ApC7% (BldA) [Mass fraction]94 %Flash Lovelace MD Work Phone: [phone] CashmereK[facility] Medical CenterEjmfycdjci25-61-5083 10:17-0400Systolic blood ohycufjc885 mm[Hg]Flash Lovelace MD Work Phone: [phone] CashmereK[facility] Medical CenterDohasotaby61-25-5532 13:03-0400Body jscboo426 cm Flash Lovelace MD Work Phone: [phone] [place], [place] [address]Vyzdxcvgcq56-28-1590 13:03-0400Body mass index (BMI) [Ratio]31.2 kg/q1PwaflFlash Lovelace MD Work Phone: [phone])[facility] [place], [place] [address]Vcwrktqpxb18-37-2722 13:03-0400Body .22 kgFlash Lovelace MD Work Phone: [phone] [place], [place] 1843309-23-2025 13:03-0400Diastolic blood txrzrjfu68 mm[Hg]Flash Lovelace MD Work Phone: [phone])[address] [place], [place] 1843309-23-2025 13:03-0400Heart rate76 /min Flash Lovelace MD Work Phone: [phone] [place], [place] 1843309-23-2025 13:03-4232HoF3% (BldA) [Mass fraction]94 %Flash Lovelace MD Work Phone: [phone])[address] [place], [place] 1843309-23-2025 13:03-0400Systolic blood dterkcqk660 mm[Hg]Flash Lovelace MD Work Phone: [phone] [place], [place] 1843309-16-2025 07:29-0400Body temperature 97.5 [degF]Rafaela Garcia MD Work Phone: [phone] [place], [place] 8384809-16-2025 07:29-0400 Diastolic blood sdyleebh43 mm[Hg]Rafaela Garcia MD Work Phone: [phone])[address] [place], [place] 8384809-16-2025 07:29-0400Heart rate72 /minRafaela Garcia MD Work Phone: [phone] [place], [place] 8384809-16-2025 07:29-0400 Respiratory rate18 /Kaitlynn Garcia MD Work Phone: [phone])[address] [place], [place] 8384809-16-2025 07:29-3662RwZ8% (BldA) [Mass fraction]96 %Rafaela Garcia MD Work Phone: [phone])[address] [place], [place] 8384809-16-2025 07:29-0400Systolic blood cphcofqa004 mm[Hg]Rafaela Garcia MD Work Phone: [facility]09-12-2025 14:00-0400Body seaoti715 cmRafaela Garcia MD Work Phone: [phone])[address] [place], [place] 8384809-12-2025 14:00-0400Body mass index (BMI) [Ratio]30.81 kg/d7RqhosRafaela Garcia MD Work Phone: [phone])[address] [place], [place] 8384809-12-2025 14:00-0400Body mhhunk329.86 kgRafaela Garcia MD Work Phone: [phone])[address] [place], [place] 8384809-11-2025 20:42-0400Heart rate84 /minFlash Lovelace MD Work Phone: [phone])[address] [place], [place] 6561609-11-2025 20:42-0400 Respiratory rate20 /minFlash Lovelace MD Work Phone: [phone])[address] [place], [place] 6561609-11-2025 20:00-0400 Body xzhwdefnhmr57 [degF]Flash Lovelace MD Work Phone: [phone])[address] [place], [place] 6561609-11-2025 20:00-0400 Diastolic blood vxqpobfk78 mm[Hg]Flash Lovelace MD Work Phone: 1(436)[address] [place], [place] 6561609-11-2025 20:00-0400 SaO2% (BldA) [Mass fraction]94 %Flash Lovelace MD Work Phone: [phone])[address] [place], [place] 6561609-11-2025 20:00-0400 Systolic blood qujdxath497 mm[Hg]Flash Lovelace MD Work Phone: [phone])[address] [place], [place] 6561609-10-2025 20:00-0400 Inhaled oxygen flow rate2 L/minFlash Lovelace MD Work Phone: 1(097)[address] [place], [place] 6561609-10-2025 06:00-0400 Body xyswuj561 kgFlash Lovelace MD Work Phone: [phone])[address] [place], [place] 6561609-09-2025 14:10-0400 Body .96 Varun Lovelace MD Work Phone: [phone] [place], [place] 3029309-09-2025 05:35-0400 Inhaled oxygen rxiengejjmdbn48 %Flash Lovelace MD Work Phone: [phone])[address] [place], [place] 6561609-05-2025 16:00-0400 Diastolic blood zkmaysgx39 mm[Hg]Flash Lovelace MD Work Phone: 1(866)[address] [place], [place] 6561609-05-2025 16:00-0400 Heart rate75 /minFlash Lovelace MD Work Phone: [phone]09-05-2025 16:00-0400 Respiratory rate22 /minFlash Lovelace MD Work Phone: [phone])[address] [place], [place] 6561609-05-2025 16:00-0400 Systolic blood cuhfddmt250 mm[Hg]Flash Lovelace MD Work Phone: [phone])[address] [place], [place] 6561609-05-2025 15:00-0400 SaO2% (BldA) [Mass fraction]95 %Flash Lovelace MD Work Phone: [phone])[address]09-05-2025 14:23-0400 Body vuijog372.96 Varun Lovelace MD Work Phone: [phone])[address] [place], [place] 6561609-05-2025 14:23-0400 Body xvznovkvrxz74.6 [degF]Flash Lovelace MD Work Phone: [phone]09-05-2025 14:23-0400 Body .13 kgFlash Lovelace MD Work Phone: [phone]09-05-2025 13:04-0400 Body cmZoë BROWER Work Phone: [phone]-[facility] CenterFjckljalvo48-06-6183 13:04-0400Body mass index (BMI) [Ratio]31.74 kg/u3PsljpZoë BROWER Work Phone: [facility] CenterMgpvdlggce79-59-1958 13:04-0400Body temperature 98.6 [degF]Zoë BROWER Work Phone: [facility] [id number] 13:04-0400Body zvtjih487.13 kgZoë Hemmer PA Work Phone: [facility] [id number] 13:04-0400Diastolic blood zojahpll17 mm[Hg]Zoë Hemmer PA Work Phone: [facility] [id number] 13:04-0400Heart rate81 /min Zoë Hemmer PA Work Phone: [facility] [id number] 13:04-0400Respiratory rate20 /minZoë Hemmer PA Work Phone: [facility] [id number] 13:04-2480NtU4% (BldA) [Mass fraction]93 %Zoë Hemmer PA Work Phone: [facility] [id number] 13:04-0400Systolic blood joesbnnr700 mm[Hg]Zoë Hemmer PA Work Phone: [facility] CenterWpuxsrkukf98-20-9042 14:36-0400Diastolic blood srzpyuxj25 mm[Hg]Mohsen Sarabia MD Work Phone: 1(201) [phone]02683WmiuYkvcjq32-12-9139 14:36-0400Heart rate64 /minMohsen Sarabia MD Work Phone: 1(836) [phone]rbgAkioen65-81-5960 14:36-0400Systolic blood pressure 162 mm[Hg]Mohsen Sarabia MD Work Phone: 1(706) [phone]opRcpifk06-38-0942 14:30-0400Body vphloi572 cmMohsen Sarabia MD Work Phone: 1(689) [phone]vnmTmyvmp74-00-2581 14:30-0400Body mass index (BMI) [Ratio]31.46 kg/m2Mohsen Sarabia MD Work Phone: 1(489) [phone]vAntoap93-45-8117 14:30-0400Body ocigze987.13 kgMohsen Sarabia MD Work Phone: 1(438) [phone]xvvEjoqvd10-45-0015 14:30-0400Respiratory rate16 /min Mohsen Sarabia MD Work Phone: 1(244) [phone]vVwtqpr44-63-3194 14:30-3549PqI4% (BldA) [Mass fraction]97 %Mohsen Sarabia MD Work Phone: 1(212) [phone]toNkxmqs06-00-4116 13:27-0400Body jcgquy617 cmRevon Lovelace MD Work Phone: [facility] CenterKuiujdbouc86-67-0640 13:27-0400Body mass index (BMI) [Ratio]30.94 kg/v3BjphxFlash Lovelace MD Work Phone: [place] [address]Wptxpozrfx41-60-9891 13:27-0400Body .32 kgFlash Lovelace MD Work Phone: [facility] CenterDhzgeikzki86-19-6462 13:27-0400Diastolic blood mndictos83 mm[Hg]Flash Lovelace MD Work Phone: [facility] CenterXterhjukdz16-73-5215 13:27-0400Heart rate70 /min Flash Lovelace MD Work Phone: [facility] CenterJiobifoswd29-54-9087 13:27-3100HpC2% (BldA) [Mass fraction]96 %Flash Lovelace MD Work Phone: [facility] CenterCmdiipnwnq27-97-5391 13:27-0400Systolic blood pdghyxvs749 mm[Hg]Flash Lovelace MD Work Phone: [facility] CenterFclrqqmhrc92-51-1930 11:29-0400Body zzfldi793 cm Zoë King PA Work Phone: [facility] CenterTnatkpviny02-76-2393 11:29-0400Body mass index (BMI) [Ratio]31.35 kg/t6VpgygZoë King PA Work Phone: [facility] CenterNviwdylikk46-16-8724 11:29-0400Body cjbybk969.77 kgZoë King PA Work Phone: [place] [address]Xovbvstdij28-30-4020 11:29-0400Diastolic blood rlpujevb47 mm[Hg]Zoë King PA Work Phone: [facility] CenterBvdxeadkmf49-81-9091 11:29-0400Heart rate70 /min Zoë Hemmer PA Work Phone: [facility] CenterSpbrmxjbly86-32-5676 11:29-0400Respiratory rate18 /minZoë Hemmer PA Work Phone: [facility] CenterNkgkqzuyxv19-82-0389 11:29-2218DhG6% (BldA) [Mass fraction]98 %Zoë Hemmer PA Work Phone: [facility] CenterMotaxdakdw26-09-5559 11:29-0400Systolic blood vjxyynci916 mm[Hg]Zoë Hemmer PA Work Phone: [facility] CenterFuceyccfoh39-94-2946 11:54-0400Body hbbkud197 cm Mohsen Sarabia MD Work Phone: 1(590) [phone]kTcclyq68-79-0790 11:54-0400Body mass index (BMI) [Ratio]31.07 kg/m2Mohsen Sarabia MD Work Phone: 1(176) [phone]wlUstkvv10-94-9383 11:54-0400Body molkid337.77 kgMohsen Sarabia MD Work Phone: 1(605) [phone]XambLvhiok58-85-5443 11:54-0400Diastolic blood mm[Hg]Mohsen Sarabia MD Work Phone: 1(734) [phone]ijuTxykul79-08-5541 11:54-0400Heart rate68 /minMohsen Sarabia MD Work Phone: 1(392) [phone]hpvUxflsv71-98-6644 11:54-0400Respiratory rate12 /min Mohsen Sarabia MD Work Phone: 1(678) [phone]uimJeezsa05-99-9315 11:54-3296SxE5% (BldA) [Mass fraction]92 %Mohsen Sarabia MD Work Phone: 1(968) [phone]xySwymcx92-29-5445 11:54-0400Systolic blood pressure 121 mm[Hg]Mohsen Sarabia MD Work Phone: 1(812) [phone]mjvLgaodi88-15-5622 13:24-0400Body thiuuv271 cmRevon Lovelace MD Work Phone: 1(481)508-[address] [place], [place] [address]Hbwnjrpkce42-00-6912 13:24-0400Body mass index (BMI) [Ratio]31.2 kg/k9ZcoqjFlash Lovelace MD Work Phone: 1(883)480-[address] [place], [place] [address]Uowdbfenlk59-16-0910 13:24-0400Body cpuvif555.22 kgFlash Lovelace MD Work Phone: 1(606)[facility]-[address] [place], [place] [address]Sweslnffgv91-85-0099 13:24-0400Diastolic blood rszitdjz00 mm[Hg]Flash Lovelace MD Work Phone: 1(162)380-[address] [place], [place] [address]Uporsgtcze88-26-8608 13:24-0400Heart rate72 /min Flash Lovelace MD Work Phone: 1(278)[facility]-[address] [place], [place] [address]Jgvecnsnan88-89-3976 13:24-9065TcD1% (BldA) [Mass fraction]96 %Flash Lovelace MD Work Phone: 1(802)617-[address] [place], [place] [address]Etmccnhycb48-20-6948 13:24-0400Systolic blood qtlavqyb341 mm[Hg]Flash Lovelace MD Work Phone: 1(027)853-[address] [place], [place] [address]Qaegyqkrkp80-57-8831 14:58-0400Body temperature 98.1 [degF]Uri Edgar DO Work Phone: 1(968) [phone]fwTyawkb12-34-8267 14:58-0400Diastolic blood psbahtst15 mm[Hg]Uri Edgar DO Work Phone: 1(527) [phone]wcsHbczuf05-39-1549 14:58-0400Heart rate88 /minKyle Edgar DO Work Phone: 1(622) [phone]-995250IyeaHxxhhn61-89-5571 14:58-0400Respiratory rate15 /min Uri Edgar DO Work Phone: 1(300) [phone]-114918AcpqOnxuvq12-51-0417 14:58-5622RyD5% (BldA) [Mass fraction]96 %Uri Edgar DO Work Phone: 1(948) [phone]nulFeiexl83-14-6008 14:58-0400Systolic blood pressure 139 mm[Hg]Uri Edgar DO Work Phone: 1(998) [phone]xseLimjgm81-85-8015 20:34-0400Body cmUri Voss DO Work Phone: 1(531) [phone]rtrNktcpv97-89-7822 20:34-0400Body mass index (BMI) [Ratio]31.19 kg/m2Uri Voss DO Work Phone: 1(947) [phone]cqiJrqhdq40-77-7708 20:34-0400Body .2 kgUri Voss DO Work Phone: 1(576) [phone]sdjVtwqbb51-47-5303 09:55-0400Diastolic blood kprhjovc10 mm[Hg]Ken Johnson CNP Work Phone: 1(972) [phone]expUiqxik87-46-2450 09:55-0400Systolic blood pressure 147 mm[Hg]Ken Johnson CNP Work Phone: 1(155) [phone]-448959HzdvGkiemy36-62-5085 09:52-0400Body ssesph004.4 cm Ken Johnson CNP Work Phone: 1(169) [phone]ybfrx06-56-8732 09:52-0400Body mass index (BMI) [Ratio]32.98 kg/f7Ayfgjqcristel Johnson CNP Work Phone: 1(812) [phone]kjaQqyxqu94-79-5465 09:52-0400Body dapmuc416.4 kg Ken Johnson CNP Work Phone: 1(881) [phone]47475MdvcMtwysw64-84-1815 09:52-0400Heart rate81 /minElaine Solomon BENITES Work Phone: 1(241) [phone]848YncgEhfluw94-20-9560 09:52-6580GvP7% (BldA) [Mass fraction]93 %Ken Johnson CNP Work Phone: 1(114) [phone]qwfJquuvu04-15-4721 18:50-0400Diastolic blood ixuuxrtr69 mm[Hg]Flash Lovelace MD Work Phone: [facility]07-16-2025 18:50-0400 Heart rate83 /minFlash Lovelace MD Work Phone: 1(929)[address]07-16-2025 18:50-0400 Respiratory rate16 /minFlash Lovelace MD Work Phone: 1(741)[address] [place], [place] [address]07-16-2025 18:50-0400 SaO2% (BldA) [Mass fraction]95 %Flash Lovelace MD Work Phone: 1(637)[address] [place], [place] [address]07-16-2025 18:50-0400 Systolic blood fekdnndp988 mm[Hg]Flash Lovelace MD Work Phone: 1(407)[address] [place], [place] [address]07-16-2025 17:05-0400 Inhaled oxygen flow rate6 L/minFlash Lovelace MD Work Phone: 1(770)[address] [place], [place] [address]07-16-2025 13:05-0400 Body wtzevw663.96 Varun Lovelace MD Work Phone: 1(007)[address] [place], [place] [address]07-16-2025 13:05-0400 Body oqmnlxadove26.1 [degF]Flash Lovelace MD Work Phone: 1(817)[address] [place], [place] [address]07-16-2025 13:05-0400 Body mfulof507.39 kgFlash Lovelace MD Work Phone: 1(059)[address] [place], [place] [address]07-15-2025 11:34-0400 Body ynebrv974.96 Varun Lovelace MD Work Phone: 1(072)[address] [place], [place] [address]07-15-2025 11:34-0400 Body mass index (BMI) [Ratio]32.1 kg/q7FgtenFlash Lovelace MD Work Phone: 1(889)[address] [place], [place] [address]07-15-2025 11:34-0400 Body ubvovbjzooa86 [degF]Flash Lovelace MD Work Phone: 1(557)[address] [place], [place] [address]07-15-2025 11:34-0400 Body bgahmx669.39 kgFlash Lovelace MD Work Phone: 1(958)[address] [place], [place] [address]07-15-2025 11:34-0400 Diastolic blood ksvmoypj86 mm[Hg]Flash Lovelace MD Work Phone: [facility]07-15-2025 11:34-0400 Heart rate77 /minFlash Lovelace MD Work Phone: 1(561)484-[address] [place], [place] 5013407-15-2025 11:34-0400 SaO2% (BldA) [Mass fraction]98 %Flash Lovelace MD Work Phone: 1(089)734-[address] [place], [place] 5013407-15-2025 11:34-0400 Systolic blood rosyzcva568 mm[Hg]Flash Lovelace MD Work Phone: 1(281)722-[address] [place], [place] 3029305-15-2025 10:33-0400 Body jinfai939 cmLonniejim Steve RESIDENT CARE DIRECTOR Work Phone: [facility] CenterSenujrraar03-70-8037 10:33-0400Body mass index (BMI) [Ratio]32.23 kg/m2Bhaskar Wilson RESIDENT CARE DIRECTOR Work Phone: 1(524)133-[address] [place], [place] [address]Nsgpqedewn99-68-2898 10:33-0400Body .85 kgLonniejim Steve RESIDENT CARE DIRECTOR Work Phone: [facility] CenterFdisygwmpc83-12-9489 10:33-0400Diastolic blood mxitkbbb45 mm[Hg]Bhaskar Wilson RESIDENT CARE DIRECTOR Work Phone: [facility] CenterRaxifspciy20-22-5804 10:33-0400Heart rate83 /min Bhaskar Wilson RESIDENT CARE DIRECTOR Work Phone: [facility] CenterRxkunhdlck40-16-1187 10:33-0400Respiratory rate17 /minBhaskar Wilson RESIDENT CARE DIRECTOR Work Phone: [facility] CenterMftwgcttpo49-64-4841 10:33-9973ChW2% (BldA) [Mass fraction]96 %Bhaskar Wilson RESIDENT CARE DIRECTOR Work Phone: [facility] CenterSykqhxiwyb37-86-8363 10:33-0400Systolic blood vblpyqdm316 mm[Hg]Bhaskar Wilson RESIDENT CARE DIRECTOR Work Phone: [facility] CenterTgxgucawoy85-19-8087 13:21-0500Body yicbey280 cm Flash Lovelace MD Work Phone: [facility] CenterSjgxrdgabl08-36-4930 13:21-0500Body mass index (BMI) [Ratio]33 kg/p7WchhcFlash Lovelace MD Work Phone: [facility] CenterBadsakabot06-61-5954 13:21-0500Body rfvzme982.57 kgFlash Lovelace MD Work Phone: [facility] CenterRikkmljbbw54-28-9518 13:21-0500Diastolic blood mm[Hg]Flash Lovelace MD Work Phone: [facility] CenterDmmptgzoaa20-17-5423 13:21-0500Heart rate73 /min Flash Lovelace MD Work Phone: 1(800)[facility]-3340[facility] CenterSqidusnnxm94-55-2587 13:21-3355PyL9% (BldA) [Mass fraction]96 %Flash Lovelace MD Work Phone: [facility] CenterWtrjryqzej50-64-3457 13:21-0500Systolic blood zfkxcrit710 mm[Hg]Flash Lovelace MD Work Phone: 1(550)336-[address] [place], [place] [address]Eupmefhnzf58-50-5532 13:07-0400Body xadcxa643 cm Zoë King PA Work Phone: 1(584)[facility]-2425[facility] CenterJynbtyrayg05-37-8550 13:07-0400Body mass index (BMI) [Ratio]31.38 kg/e7Plshx Hemmer PA Work Phone: [facility] CenterBmqvabbwjd23-47-2406 13:07-0400Body dzekmi220.86 kgZoë Hemmer PA Work Phone: [facility] CenterChmwvzxtwf22-85-4003 13:07-0400Diastolic blood tuymwaik55 mm[Hg]Zoë Hemmer PA Work Phone: [place] [address]Lcixpktgvt56-42-1852 13:07-0400Heart rate80 /min Zoë Hemmer PA Work Phone: [facility] CenterDlwqcpazdz54-62-9906 13:07-0400Respiratory rate16 /minZoë Hemmer PA Work Phone: [facility] CenterYsfksywvfy77-96-6806 13:07-0129UxT6% (BldA) [Mass fraction]98 %Zoë Hemmer PA Work Phone: [facility] CenterYddmoqkhso48-05-4300 13:07-0400Systolic blood tacccvyq114 mm[Hg]Zoë Hemmer PA Work Phone: 1(960)[facility]7604[facility] CenterTdbgdhgvjy84-66-1546 09:25-0400Body gnnzav611 cm Zoë Hemmer PA Work Phone: 1(315)[facility]-[address] [place], [place] [address]Yyecpdhpai06-54-7072 09:25-0400Body mass index (BMI) [Ratio]31.23 kg/r0Ihjsh Hemmer PA Work Phone: 1(900)[facility]-[address] [place], [place] [address]Fxmxepsiub74-62-5424 09:25-0400Body apcogw136.31 kgToneen Hemmer PA Work Phone: 1(675)[facility] [place], [place] [address]Frnppclbyn36-82-7341 09:25-0400Diastolic blood iwvxeert19 mm[Hg]Zoë Hemmer PA Work Phone: 1(639)[facility] [place], [place] [address]Hvpvzehiae13-57-7406 09:25-0400Heart rate70 /min Zoë Hemmer PA Work Phone: 1(972)[facility]-[address] [place], [place] [address]Pxsyazjmsp19-90-9398 09:25-0400Respiratory rate16 /minToneen Hemmer PA Work Phone: 1(159)[facility]-[address] [place], [place] [address]Ubewzrcpxo17-96-4281 09:25-5576BhW9% (BldA) [Mass fraction]96 %Zoë Hemmer PA Work Phone: 1(087)[facility]-[address] [place], [place] [address]Ahzodsojgq65-08-3343 09:25-0400Systolic blood uqkchzno480 mm[Hg]Zoë Hemmer PA Work Phone: 1(029)[facility]-[address] [place], [place] [address]Jbolzvcfba62-07-6988 13:07-0400Blood Pressure LocationJENNIFER JAY [facility]04-30-2024 13:07-0400Diastolic blood ehfmfdcm72 mm[Hg]BRENNA JAY [facility] [place] [address]-30-2024 13:07-0400Heart rate68 /minJENNIFER JAY [facility]04-30-2024 13:07-0400Respiratory rate16 /minBRENNA JAY [facility]04-30-2024 13:07-0400Systolic blood iadvkyhv774 mm[Hg]BRENNA MOSQUERA [facility]02-15-2024 15:13-0500Diastolic blood ttcyatem31 mm[Hg]MD Flash Lovelace Work Phone: 1(388)251-[address] [place], [place] 3029302-15-2024 15:13-0500 Heart rate67 /minMD Flash Lovelace Work Phone: 1(291)654-[address] [place], [place] 3029302-15-2024 15:13-0500 Respiratory rate16 /min Flash Lovelace Work Phone: 1(863)057-[address] [place], [place] 3029302-15-2024 15:13-0500 SaO2% (BldA) [Mass fraction]96 %MD Flash Lovelace Work Phone: 1(209)306-[address] [place], [place] 3029302-15-2024 15:13-0500 Systolic blood aatpkiww113 mm[Hg]MD Flash Lovelace Work Phone: 1(009)370-[address] [place], [place] 3029302-15-2024 08:43-0500 Body oztrto151.96 cmMD Flash Lovelace Work Phone: 1(498)513-[address] [place], [place] 3029302-15-2024 08:43-0500 Body ratvyf924 kgMD Flash Lovelace Work Phone: 1(417)673-[address] [place], [place] 3029302-06-2024 10:00-0500 Body yvfykm778.96 cmCristian Beaver Other [employer] Other 02-06-2024 10:00-0500Body mass index (BMI) [Ratio] 30.55 kg/m3DzvpjelCristian Beaver Other [employer] Other 02-06-2024 10:00-0500Body kxgxyozypkl15.4 [degF] Cristian [facility] Other [facility] Other 02-06-2024 10:00-0500Body xkptty369.96 kgJecamilla Beaver Other [employer] Other 02-06-2024 10:00-0500Diastolic blood dmuddsej83 mm[Hg] Cristian Beaver Other [employer] Other 02-06-2024 10:00-6795WeL3% (BldA) [Mass fraction]94 % Cristian Beaver Other [employer] Other 02-06-2024 10:00-0500Systolic blood dcszsxuo917 mm[Hg] Cristian Beaver [facility] Other 12-14-2023 10:52-0500Body lflhod408 cmChad Melida [employer] MEDICAL Work Phone: [facility]12-14-2023 10:52-0500Body mass index (BMI) [Ratio]29.53 kg/m2Scar Ortega [employer]ALTH[facility]ARE [employer] MEDICAL Work Phone: [employer]12-14-2023 10:52-0500Body weight 104.33 kgScar Ortega [employer]ALTHCARE [employer] MEDICAL Work Phone: [employer]12-13-2023 12:29-0500Diastolic blood mm[Hg]Mohsen Sarabia MD Work Phone: 1(324) [phone]7-073738TngoXzdblp43-22-3318 12:29-0500Systolic blood pressure 135 mm[Hg]Mohsen Sarabia MD Work Phone: 1(363) [phone]4-134542EesuHhmtjf45-30-0045 12:27-0500Body phjcuq741.4 cmMohsen Sarabia MD Work Phone: 1(214) [phone]-794993KhxkCmjxyr75-60-9355 12:27-0500Body mass index (BMI) [Ratio]30.34 kg/m2Mohsen Sarabia MD Work Phone: 1(570) [phone]vjxWkgqxr25-75-0140 12:27-0500Body qhliev975.33 kgMohsen Sarabia MD Work Phone: 1(128) [phone]-971191NagwJnhtyy25-05-9491 12:27-0500Heart rate68 /minMhosen Sarabia MD Work Phone: 1(125) [phone]yojUpdvcm59-30-5774 12:27-0500Respiratory rate12 /min Mohsen Sarabia MD Work Phone: 1(128) [phone]gbzSsjcbx83-54-3184 12:27-5546QrQ9% (BldA) [Mass fraction]93 %Mohsen Sarabia MD Work Phone: 1(830) [phone]zxjAlubxc50-83-3403 09:30-0400Body afxngj615.96 cm Cristian Beaver Other [employer] Other [phone] 09:30-0400Body mass index (BMI) [Ratio] 30.55 kg/r4UvxqeudCristian Beaver Other [employer] Other 10-16-2023 09:30-0400Body wcyvwortuhm96.6 [degF] Cristian Beaver Other [employer] Other 10-16-2023 09:30-0400Body jngjuz517.96 kgCristian Beaver Other [employer] Other 10-16-2023 09:30-0400Diastolic blood voxiztaf96 mm[Hg] Cristian Buehrer Other [employer] Other 10-16-2023 09:30-7883DjH1% (BldA) [Mass fraction]97 % Cristian Buehrer Other [employer] Other 10-16-2023 09:30-0400Systolic blood tndbbxyo626 mm[Hg] Cristian Buehrer Other [employer] Other 09-26-2023 10:45-0400Body .96 cmJecamilla Melendezrer Other [employer] Other 09-26-2023 10:45-0400Body mass index (BMI) [Ratio] 30.55 kg/f3Dkpabjm Buehrer Other [employer] Other 09-26-2023 10:45-0400Body alexiunppfv26.8 [degF] Cristian Buehrer Other [employer] Other 09-26-2023 10:45-0400Body funzco739.96 kgJecamilla Jonesehrer Other [employer] Other 09-26-2023 10:45-0400Diastolic blood oitaxwrk69 mm[Hg] Cristian Buehrer Other [employer] Other 09-26-2023 10:45-9902GrZ2% (BldA) [Mass fraction]98 % Cristian Buehrer Other [employer] Other 09-26-2023 10:45-0400Systolic blood lmbqphem024 mm[Hg] Cristian Beaver Other [employer] Other 03-20-2023 10:45-0400Body vpbnai545.96 cmHaven Malcolm Other [facility] Other 03-20-2023 10:45-0400Body mass index (BMI) [Ratio] 31.45 kg/r7UnijvwHaven Malcolm Other [facility] Other 03-20-2023 10:45-0400Body qsqhldyylyw23.3 [degF]Haven Youngsarabjit Other [employer] Other 03-20-2023 10:45-0400Body wuacxd827.13 kgHaven Malcolm Other [facility] Other 03-20-2023 10:45-0400Diastolic blood oqlefhgo41 mm[Hg] Haven Gold Other [facility] Other 03-20-2023 10:45-3271CnQ5% (BldA) [Mass fraction]94 % Haven Gold Other [employer] Other 03-20-2023 10:45-0400Systolic blood oouhdvxg687 mm[Hg] Haven Malcolm Other [employer] Other 03-14-2023 08:09-0400Body skjdatvefcc51.5 [degF] Ronnie Montoya MD Work Phone: 1(339) [phone]TyxmAmoerb53-12-3060 08:09-0400Diastolic blood lrsuomra61 mm[Hg]Ronnie Montoya MD Work Phone: 1(021)[phone]pchErimbl24-97-0940 08:09-0400Heart rate81 /min Ronnie Montoya MD Work Phone: 1(243)774-357-8408AdtuBxsbid25-540291QiyoEmwnsw72-16-1453 08:09-0400Respiratory rate16 /min Ronnie Montoya MD Work Phone: 1(656)[phone]ccjNfynmn97-25-6283 08:09-6123YlJ7% (BldA) [Mass fraction]95 %Ronnie Montoya MD Work Phone: 1(839)[phone]bguQzgsrt57-77-8962 08:09-0400Systolic blood pressure 122 mm[Hg]Ronnie Montoya MD Work Phone: SggjNqewnv71-098995TdllVkfbwl05-07-2121 13:29-0500Body qjxems951.4 cm Ronnie Montoya MD Work Phone: OxapSqpvgs21-262603SadhBxofbr31-12-4983 13:29-0500Body mass index (BMI) [Ratio]32.98 kg/x6OmlbwoiRonnie Montoya MD Work Phone: 1(400)[phone]ryqAoqspx56-95-0510 13:29-0500Body ocofai989.4 kg Ronnie Montoya MD Work Phone: 1(969)83357-8237OvziQprcqo42-690645OgdwQwsbje16-94-4838 21:30-0500Diastolic blood ydedewpt74 mm[Hg]Dalila Arreguin MD Work Phone: w300-1999DFWYKAN18-772331PUECPCM54-82-7539 21:30-0500Heart rate92 /minDalila Arreguin MD Work Phone: 1(628) [phone] 21:30-0500Respiratory rate22 /min Dalila Arreguin MD Work Phone: [id number] 21:30-8893FkD2% (BldA) [Mass fraction]90 %Dalila Arreguin MD Work Phone: [phone] 21:30-0500Systolic blood mbzyxujv294 mm[Hg]Dalila Arreguin MD Work Phone: 1(676) [phone]919SRHNLIF40-66-2035 20:00-0500Diastolic blood zekvbazc02 mm[Hg]Dalila Arreguin MD Work Phone: 1(691) [phone]6033FAOKUKX46-15-0574 20:00-0500Heart rate90 /minDalila Arreguin MD Work Phone: 1(720) [phone] 20:00-0500Respiratory rate7 /min Dalila Arreguin MD Work Phone: 1(994) [phone]5575IARFBAL72-15-9489 20:00-2138LyI8% (BldA) [Mass fraction]89 %Dalila Arreguin MD Work Phone: 1(223) [phone]23121PMMFIJJ31-92-5983 20:00-0500Systolic blood mm[Hg]Dalila Arreguin MD Work Phone: 1(363) [phone]5-02-1394 19:34-0500Body zgpiky431 Willie Arreguin MD Work Phone: 1(616) [phone] 19:34-0500Body mass index (BMI) [Ratio]32.1 kg/d6CchytDalila Arreguin MD Work Phone: 1(532) [phone] 19:34-0500Body lhoury278.4 kgDalila Arreguin MD Work Phone: 1(234) [phone] 19:06-0500Body mdmbudhuujh30.4 [degF]Dalila Arreguin MD Work Phone: 1(905) [phone] 10:48-0500Body qfvwyi240 cmCtyesha Ortega APRN-HEALTHCARE OR MEDICAL Work Phone: [facility]11-17-2022 10:48-0500Body mass index (BMI) [Ratio]32.35 kg/m2Scar Ortega APRN-HEALTHCARE OR MEDICAL Work Phone: [place] Btmntf13-61-8782 10:48-0500Body .3 [degF]Scar Ortega APRN-HEALTHCARE OR MEDICAL Work Phone: [place] Yasxxg40-93-6391 10:48-0500Body weight 114.31 kgScar MATOS Work Phone: [facility]09-06-2022 13:00-0400Body height 187.96 cmCristian Beaver Other [employer] Other 09-06-2022 13:00-0400Body mass index (BMI) [Ratio] 32.09 kg/m1IobzoosCristian Beaver Other [employer] Other 09-06-2022 13:00-0400Body uetloyzzkne10.2 [degF] Cristian Beaver Other [employer] Other 09-06-2022 13:00-0400Body azpwyk418.4 kgAlphonsecamilla Beaver Other [employer] Other 09-06-2022 13:00-0400Diastolic blood jxefyyng95 mm[Hg] Cristian Beaver Other [employer] Other 09-06-2022 13:00-5209CmZ8% (BldA) [Mass fraction]96 % Cristian Beaver Other [employer] Other 09-06-2022 13:00-0400Systolic blood kvubkgtx920 mm[Hg] Cristian Beaver Other [employer] Other 08-29-2022 16:45-0400Diastolic blood deqnejxx72 mm[Hg] MD Flash Lovelace Work Phone: [facility]08-29-2022 16:45-0400 Heart rate67 /minMD Flash Moraa Work Phone: [facility]08-29-2022 16:45-0400 Respiratory rate16 /minMD Flash Lovelace Work Phone: [facility]08-29-2022 16:45-0400 SaO2% (BldA) [Mass fraction]97 % Jorgedana [place] Work Phone: 1(367)122-[address] [place], [place] 5013408-29-2022 16:45-0400 Systolic blood gsnperoy384 mm[Hg]MD Vidales [place] Work Phone: 1(964)197-[address] [place], [place] 5013408-29-2022 11:24-0400 Body qtuppo057.96 cmMD Flash Lovelace Work Phone: 1(542)191-[address] [place], [place] 3029308-29-2022 11:24-0400 Body bfvhed230.39 kgMD Flash Lovelace Work Phone: 1(110)978-[address] [place], [place] 3029308-23-2022 10:45-0400 Body xlkhue115.96 cmCristian Beaver Other [employer] Other 08-23-2022 10:45-0400Body mass index (BMI) [Ratio] 32.09 kg/j2TmqfwjbCristian Beaver Other [facility] [employer] Other 08-23-2022 10:45-0400Body zkzionsjicw79.5 [degF] [facility] Other 08-23-2022 10:45-0400Body .4 kgCristian Beaver Other [employer] Other 08-23-2022 10:45-0400Diastolic blood pizpzqjo91 mm[Hg] Cristian Beaver Other [employer] [employer] Other 08-23-2022 10:45-5595JxP2% (BldA) [Mass fraction]97 % Cristian Beaver Other [employer] Other 08-23-2022 10:45-0400Systolic blood ssapkcqw320 mm[Hg] Cristian Beaver Other [employer] Other 08-19-2022 17:00-0400Respiratory rate16 /Shameka Brock MD Work Phone: 1(925) [phone]ocnoz52-63-9290 15:28-0400Body ehghlpfuckn29.9 [degF]Carson Brock MD Work Phone: 1(499) [phone]ljwbg65-77-7084 15:28-0400Diastolic blood relcybbp50 mm[Hg]Carson Brock MD Work Phone: 1(847) [phone]nfjly13-66-0732 15:28-0400Heart rate65 /Shameka Brock MD Work Phone: 1(975) [phone]afntg94-16-2811 15:28-5782EeH3% (BldA) [Mass fraction]94 %Carson Brock MD Work Phone: 1(900) [phone]anhpd17-72-5123 15:28-0400Systolic blood pressure 153 mm[Hg]Carson Brock MD Work Phone: 1(850) [phone]vznyz55-72-5623 19:35-0400Body ewhmdy438 cmRyan Vinod DIAZ Work Phone: 1(630) [phone]krpvm38-71-6823 19:35-0400Body mass index (BMI) [Ratio]31.71 kg/m2Carson Brock MD Work Phone: 1(870) [phone]ququx81-90-7770 19:35-0400Body tenodl317.04 kg Carson Brock MD Work Phone: 1(171) [phone]bzrel63-81-6617 09:43-0400Body Ambreen Guerra MD Work Phone: 1(143) [phone]zvtbl18-33-8953 09:43-0400Body mass index (BMI) [Ratio]32.21 kg/x8GnwnbAngela Guerra MD Work Phone: 1(273) [phone]mfkny57-97-6960 09:43-0400Body bokscbbnepa85.1 [degF]Angela Guerra MD Work Phone: 1(818)[phone]wpqsn52-88-4519 09:43-0400Body vtqiaf443.81 kg Angela Guerra MD Work Phone: 1(220) [phone]beexz69-21-5260 09:43-0400Diastolic blood yzhfjntc31 mm[Hg]Angela Guerra MD Work Phone: [facility]HealthComment on above:-61-9899 09:43-0400Heart rate66 /Kevin Guerra MD Work Phone: 1(628)[phone]kkglo87-82-4290 09:43-0400Respiratory rate16 /min Angela Guerra MD Work Phone: 1(706) [phone]rzava29-69-5786 09:43-7948TjL6% (BldA) [Mass fraction]95 %Angela Guerra MD Work Phone: 1(534) [phone]eqrgw17-48-4332 09:43-0400Systolic blood pressure 181 mm[Hg]Angela Guerra MD Work Phone: [facility]HealthComment on above:qtpeewc09-76-0098 14:15-0400Respiratory rate16 /minSarely Mcguire MD Work Phone: [phone]whCcaytt50-61-5514 07:53-0400Body uxweaknjcis39.9 [degF]Mikey Mcguire MD Work Phone: [phone]cxHzhqgc90-79-7998 07:53-0400Diastolic blood utfdcdvw56 mm[Hg]Mikey Mcguire MD Work Phone: [phone]lUuhypv12-75-3376 07:53-0400Heart rate66 /minSarely Mcguire MD Work Phone: 1(431)[phone]xqkfj03-69-7077 07:53-4406KyI3% (BldA) [Mass fraction]91 %Mikey Mcguire MD Work Phone: [phone]rdgvs15-82-0547 07:53-0400Systolic blood pressure 133 mm[Hg]Mikey Mcguire MD Work Phone: [phone])[phone]lbtuh04-17-5426 20:43-0400Body fsvmpi346 Malika Mcguire MD Work Phone: [phone]nflxd04-54-0029 20:43-0400Body mass index (BMI) [Ratio]32.1 kg/y4UbsqecMikey Mcguire MD Work Phone: 1(317)[phone]obsbc36-54-2132 20:43-0400Body hhuzwx342.4 kg Mikey Mcguire MD Work Phone: 1(679)[phone]ccwnj13-37-1842 09:04-0400Body elbqnf974 Uzma Silvestre MD Work Phone: 1(310)[phone] [place], [place] 2780305-18-2022 09:04-0400Body mass index (BMI) [Ratio]32.38 kg/v8SkivkDashawn Silvestre MD Work Phone: 1([phone] [place], [place] 2780305-18-2022 09:04-0400Body foooaeumoyj37.11 [degF]Dashawn Silvestre MD Work Phone: 1(596)877-[address] [place], [place] 2780305-18-2022 09:04-0400Body weight 114.4 kgDashawn Silvestre MD Work Phone: [phone] [place], [place] 2780303-30-2022 09:44-0400Body lrzlxe925 Uzma Silvestre MD Work Phone: [phone] [place], [place] 2780303-30-2022 09:44-0400Body mass index (BMI) [Ratio]31.07 kg/m2XkbqtDashawn Silvestre MD Work Phone: [phone])862-[address] [place], [place] 2780303-30-2022 09:44-0400Body weight 109.77 kgDashawn Silvestre MD Work Phone: [facility]02-12-2020 14:17-0500BMI (Body Mass Index)31.46 kg/p8GeexqlgMartin Memorial HospitalMxhgZbgcBpmgyn17-51-2540 14:17-0500Body .13 kgMartin Memorial HospitalWwuoHxhsSqpjkb27-97-8550 14:17-0500BP Awtrmwmye78 mm[Hg][facility]02-12-2020 14:17-0500BP Loavhxbb953 mm[Hg][facility] 10-09-2019 14:17-4480Qaxnki432 cmAWilson Memorial HospitalDjbsIfjhJaqxka42-62-5819 14:17-0500 Pulse (Heart Rate)71 /minMartin Memorial HospitalFxvpVhltVosogz03-86-4259 14:17-0500Pulse Clcjcuec05 %[facility] HospitalXnmfUkynVwvotl05-47-7710 09:57-0400BMI (Body Mass Index) 27.99 kg/m2[facility] HospitalMendjqZnroAkyrmj10-47-5837 09:57-0400Body ymaynv43.88 kgMercy Memorial HospitalWdsgugLjpeNfwiqs14-59-3764 09:57-0400BP Jfcruwweu05 mm[Hg][facility] 03-13-2019 09:57-0400BP Csavmsdw775 mm[Hg][facility] HospitalUbekfhUvyiZwfcon90-52-7357 09:57-1100Rukeww597 [facility] HospitalEcmzfjPdolQazkac65-07-9983 09:57-0400Pulse (Heart Rate)72 /minMercy Memorial HospitalAdbekhRwcwNnjpsc60-97-4571 09:57-0400Pulse Assyntci18 %[facility] HospitalGpuqloTtwhPkpzjp24-37-5478 09:57-0400Respiratory Rate16 /minMer[facility] Hospital 10-25-2018 15:07-0500Body Naxvmirqjsg83.39 [degF][facility] 10-25-2018 15:07-0500BP Frzmregxl43 mm[Hg][facility] HospitalNreoQnzdAghzid44-15-0664 15:07-0500BP Nabnqvnp745 mm[Hg][facility] HospitalJxnwXpzyFgqitu09-91-7804 15:07-0500Pulse (Heart Rate)96 /minSouth County HospitalNzngGdnxBkkfur86-95-4192 15:07-0500Respiratory Rate16 /[facility]02-21-2019 15:29-0500Body Dnpumptkeqo73.4 [degF] [facility] HospitalUjdgFumhSboaxg75-20-6175 15:29-0500BP Emvuatedy32 mm[Hg][facility]02-21-2019 15:29-0500BP Gzlmjeih266 mm[Hg][facility] 10-18-2018 15:29-0500Pulse (Heart Rate)86 /minSouth County HospitalYfjoPctcYdknjd48-03-0513 15:29-0500Respiratory Rate16 /[facility]02-15-2019 18:41-0500BP Asgtlduwf16 mm[Hg][facility] HospitalItjjXcukWiyljn20-31-9708 18:41-0500BP Nuoclrai913 mm[Hg][facility] HospitalTqgxMqimKgswxf47-11-1714 12:17-0500Body Tlahoiracrk09.2 [degF] [facility] HospitalEsnwYywhQwirhy94-31-4413 12:17-0500Pulse (Heart Rate)72 /[facility]02-15-2019 12:17-0500Pulse Qsngayox25 %[facility] 10-12-2018 12:17-0500Respiratory Rate14 /[facility]02-11-2019 06:20-0500BMI (Body Mass Index)27.99 kg/u6KngmgxjSouth County HospitalVrqwOixlAlqmuy82-66-1364 06:20-3002Dgaxog995 cmSouth County HospitalAkxgXbdoCbgwxs17-58-1173 06:20-6970Vtcuhm22.88 kg [facility] HospitalLkkuJvrlHyssjb99-86-7845 13:08-0500Body Oihskchzkzw28.2 [degF][facility] HospitalQuzlYobkKxuabr47-10-2647 13:08-0500BP Duauvdspc37 mm[Hg][facility] 10-04-2018 13:08-0500BP Yapguyvs595 mm[Hg][facility] HospitalPowoSxseBgqwcq36-86-9215 13:08-0500Pulse (Heart Rate)87 /[facility]02-07-2019 13:08-0500 Respiratory Rate16 /minSouth County HospitalOzgkQcsyEiyheg71-19-8793 14:15-0500BMI (Body Mass Index)30.3 kg/h5BusqmftSouth County HospitalFtmqUrylNjgjys39-50-5949 14:15-0500Body Ueigdwjzqfv73.9 [degF][facility] HospitalMaoeKskyRbpxhz59-57-0222 14:15-0500BP Fphpowtuf37 mm[Hg][facility] HospitalJnmmQuotAjfbqy31-31-0068 14:15-0500BP Wgejtsqk196 mm[Hg][facility] 09-20-2018 14:15-3620Ixxizl326 cmSouth County HospitalPlhaFffqKnzogz81-65-1990 14:15-0500 Pulse (Heart Rate)92 /minSouth County HospitalVtcoIxfqUxeyrj81-96-1165 14:15-0500Respiratory Rate16 /[facility]01-24-2019 14:15-2048Ezjedl023.05 kgSouth County HospitalVoncWsotMtaocl71-44-2703 10:30-0500Respiratory Rate20 /[facility] 07:36-0500Body Nvbzrzlgida01.3 [degF][facility]01-17-2019 07:36-0500BP Kocxjspvd80 mm[Hg][facility] 09-13-2018 07:36-0500BP Ggciipqp752 mm[Hg][facility] PorterUnyyleopxGihpNwwqgm95-96-4213 07:36-0500Pulse (Heart Rate)103 /minAdventHealth PorterXqphjfbrgFtklXtdcrd69-70-7943 07:36-0500Pulse Yympvqdo06 %[facility] PorterDsczkpkxqIbeyWjurtg97-44-7961 19:09-0500BMI (Body Mass Index)31.58 kg/r2XnovcfAdventHealth PorterNipmjtnqeZqzcFvlvii87-18-5109 19:09-0500 Fsyuds378 cmAdventHealth PorterQbafrhvqrZggwQwtfbe79-14-6663 19:09-9423Bkaprq055.58 kgNic[facility] Encounters Encounter DateEncounter TypeCare ProviderFacilityStart: 06-10-2025 End: 26-00-0453Wymhhl flowsKen Lovelace MD Work Phone: noms [facility] MedinceStart: 06-10-2025 End: 82-78-8073Uscuwe flowsheetFlash Lovelace MD Work Phone: [facility] MedinceStart: 06-10-2025 End: 08-67-5954Iidru of hemosiderin, Vini Lovelace MD Work Phone: noms HealthcareStart: 06-10-2025 End: 14-78-0975Dkjtkbd encounter procedureFlash Lovelace MD Work Phone: noms [facility] MedinceComment on above:Routine general medical examination at health care facility (Primary Dx); Screening for lipid disorders; Medicare annual wellness visit, subsequent; 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HCC); Encounter for immunization; Opioid dependence, uncomplicated (HCC); Acute eczematoid otitis externa of right earStart: 06-10-2025 End: 53-38-1599hxpctfwrnoDUMVT M ALDANot AvailableStart: 06-06-2025 End: 52-30-5082Qxqbdy Song Garcia RNRiverside Vascular SurgeonsComment on above:PVD (peripheral vascular disease) (Primary Dx)Start: 06-05-2025 End: 16-92-6170blrzpzhvviNVOVeterans Health Administrationtart: 06-02-2025 End: 42-83-9035Mtqmeq Song Garcia RNRiverside Vascular SurgeonsComment on above:PVD (peripheral vascular disease) (Primary Dx)Start: 05-29-2025 End: 09-60-8409CmaijhSwmij M Alda MD Work Phone: noms [facility] MedinceComment on above:PVD (peripheral vascular disease) with claudicationStart: 05-26-2025 End: 82-03-0698Cozfukebd encounterElaine Saab LPN Work Phone: noms POPULATION HEALTHStart: 05-20-2025 End: 20-86-7461Ikvczf outpatient visit 25 minutesFlash Lovelace MD Work Phone: NOMS [facility] MedinceComment on above:Pneumonia due to infectious organism, unspecified laterality, unspecified part of lung (Primary Dx)Start: 05-20-2025 End: 35-58-3910bgsckqaagrVGQFT M ALDANot AvailableStart: 05-14-2025 End: 70-85-8493oasoyjtcyyGehdk Saab FINANCE CLERK Work Phone: noms POPULATION HEALTHStart: 05-09-2025 End: 91-85-0268Uquilxhrvp and management of inpatientVivienne Gerard MD Work Phone: r8EComment on above:HemoptysisStart: 05-04-2025 End: 25-15-9247Nyuwljzkrl and management of inpatientMichael Frings [facility]: 90-94-5892Myg-patient / Non-visitYuhann Dayday Martines MD-[facility] Work Phone: Start: 83-02-7636Rqpdtlsrnf and management of inpatientObaydhi Arteaga MD-[facility] Work Phone: Start: 26-25-8023nhtmizmivpj Kavya Lovelace MD Work Phone: [facility] Work Phone: Start: 05-02-2025 End: 68-75-4755Jqlgbt Lynnette King PA Work Phone: noms [facility] MedinceStart: 05-02-2025 End: 53-16-4779Dnjfct Lynnette King PA Work Phone: NOMS [facility] MedinceStart: 05-02-2025 End: 81-09-8125Dxvdjc outpatient visit 15 minutesZoë BROWER Work Phone: NORG [facility] Family MedinceComment on above:Hemoptysis (Primary Dx); RhonchiStart: 05-02-2025 End: 29-97-4268zxjpcszffgBTJXYSteffany Ralph AvailableStart: 04-30-2025 End: 30-89-1237Gmoeqrhsc Result EncounterGeneric External Data ProviderNOMS External Department UnsolicitedStart: 04-30-2025 End: 61-93-6985Hfbbmhriu Result EncounterGeneric External Data ProviderNOMS External Department UnsolicitedStart: 04-29-2025 End: 04-17-7357Mgxoyndsc encounterSjairo MunsonMS [facility] D[facility]key MedinceComment on above:Medication Question (Has a terrible cold and runny nose wanted to know if you could zuly in a z-packfor him.)Benign essential hypertensionStart: 04-23-2025 End: 93-70-2649Kepvhb outpatient visit 25 minutesMohsen Sarabia MD Work Phone: [facility] Vascular SurgeonsComment on above:Critical lower limb ischemia (HCC) (Primary Dx)Start: 04-23-2025 End: 76-49-0490hyykvjlntrZTGMercy Regional Medical Center AmbulatoryStart: 04-23-2025 End: 23-11-2518axebmentdeVZRTrumbull Regional Medical Center HospitalStart: 04-21-2025 End: 03-97-8686Ckvqdmopu encounterElaine Saab LPN Work Phone: [facility] POPULATION HEALTHStart: 04-16-2025 End: 08-44-5193Wqetverys Result EncounterGeneric External Data ProviderNOMS External Department UnsolicitedStart: 04-16-2025 End: 63-75-8704Chtepikxv Result EncounterGeneric External Data ProviderNOMS External Department UnsolicitedStart: 04-15-2025 End: 49-79-4165Sifqhwubw Result EncounterGeneric External Data ProviderNOMS External Department UnsolicitedStart: 04-15-2025 End: 24-46-8873Bvopfudrr Result EncounterGeneric External Data ProviderNOMS External Department UnsolicitedStart: 04-15-2025 End: 83-99-0871nhvjkmijaxELPBY M ALDANot AvailableStart: 04-14-2025 End: 57-18-1976Mlzuyf outpatient visit 25 minutesFlash Lovelace MD Work Phone: [facility] Dickey MedinceComment on above:PVD (peripheral vascular disease) with claudication (Primary Dx); Ischemic toe ulcer, right, with 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); Osteomyelitis of right foot, unspecified type (HCC)Start: 04-14-2025 End: 18-87-7927tntbtxhmxmLIRST M ALDANot AvailableStart: 04-09-2025 End: 60-27-4796Mzmccfcdu encounterZoë BROWER Work Phone: [facility] MedinceStart: 04-08-2025 End: 77-04-2745Gdkawg Lynnette King PA Work Phone: [facility] MedinceStart: 04-08-2025 End: 55-15-4402Jhiiiq Lynnette King PA Work Phone: NOIN [facility] MedinceStart: 04-08-2025 End: 73-77-9488Evnawmqv Result EncounterZoë BROWER Work Phone: NOLZ External Department UnsolicitedStart: 04-08-2025 End: 02-04-8643Bgkzod outpatient visit 25 minutesZoë BROWER Work Phone: [facility]ic[facility] MedinceComment on above:PVD (peripheral vascular disease) with claudication (Primary Dx); Acquired absence of left foot (HCC); Ischemic toe ulcer, right, with 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)Start: 04-08-2025 End: 71-18-3149mtuhevbumrVTJUP M HEMMERNot AvailableStart: 04-02-2025 End: 83-22-5110Zmccid outpatient visit 15 minutesMohsen Sarabia MD Work Phone: [facility] SurgeonsComment on above:Critical lower limb ischemia (HCC) (Primary Dx)Start: 04-02-2025 End: 40-52-2171qjztudlsokOUOPaula SARABIANationwide Children'[facility] Hospital AmbulatoryStart: 03-31-2025 End: 05-62-3586Fmuduf outpatient visit 25 minutesFlash Lovelace MD Work Phone: [facility] MedinceComment on above:PVD (peripheral vascular disease) with claudication; History of prostate cancer; Urinary hesitancyStart: 03-31-2025 End: 95-16-5619rwyboceygdOJKWE M ALDANot AvailableStart: 96-44-0778Tithuvcvei and management of inpatientJecamilla MelendezrerFacility:[facility] Centertart: 03-18-2025 End: 09-42-1808Tcggmwluyvdji procedureBrenna Galloway [facility] Vascular PhysiciansStart: 03-14-2025 End: 18-64-1378Odcmhruwulmbp procedureLudivina Garcia [facility] Start: 03-14-2025 End: 88-22-7903Vevmdhtfxu and management of inpatientErika Daiana Macdonald MD Work Phone: [facility] Thor[facility] Start: 03-14-2025 End: 01-45-3235Oxfgdj follow up visit related to original Caron Sarabia MD Work Phone: [facility] Lung [facility] Vascular SurgeonsComment on above:Acute pain of right lower extremity (Primary Dx)Start: 03-14-2025 End: 96-69-9383hvjullrjstAUYPaula SARABIANationwide Children'S Hospital AmbulatoryStart: 03-14-2025 End: 14-68-0802gelcpvbhjlUGOYZJaden Riley Worship HospitalStart: 03-13-2025 End: 95-61-0612Cmtcmfsgtvsde Saima Garcia [facility] Cardiac Non-Invasive LabStart: 03-12-2025 End: 93-59-8218Xqsattgcd to same day surgery centerCristian Beaver MD-[facility] CampusStart: 03-12-2025 End: 50-01-6362futzjrtpshEhhqz M Alda MD Work Phone: [facility] Work Phone: Start: 81-48-5118Dts-patient / Non-visitMattharrison Negron MD-[facility] Work Phone: Start: 03-11-2025 End: 18-82-4956suknncvywgUapla M Alda MD Work Phone: [facility] Work Phone: Start: 03-11-2025 End: 65-39-0811Khwrikx encounter procedureCristian Beaver MD-[facility] Work Phone: Start: 02-13-2025 End: 75-57-3712HqdvhiCqzmc M Alda MD Work Phone: NOMS CI FMComment on above:Primary insomnia; Other chronic pain; Lumbosacral spondylosis without myelopathyStart: 01-09-2025 End: 29-13-3269Avtrkgleyla Wilson RESIDENT CARE DIRECTOR Work Phone: [facility] CI FMStart: 01-09-2025 End: 77-59-8258Pzplfhan Wilson RESIDENT CARE DIRECTOR Work Phone: [facility] CI FMStart: 01-09-2025 End: 32-10-2557Pypvrz outpatient visit 25 minutesBhaskar Wilson RESIDENT CARE DIRECTOR Work Phone: [facility] CI FMComment on above:Dysuria (Primary Dx); History of prostate cancer; Urinary hesitancy; Right-sided low back pain without sciatica, unspecified chronicityStart: 01-09-2025 End: 54-13-7790lmkvcscianRSY C MILLERNot AvailableStart: 01-02-2025 End: 04-42-2120WdpmsjWlllw M Alda MD Work Phone: [facility]OM[facility] CI FMComment on above:Other chronic pain; Lumbosacral spondylosis without myelopathyStart: 36-97-3699qvouxyaatkMGCALYParkwood Hospitaltart: 11-26-2024 End: 36-08-2815QmlcabIzswu M Alda MD Work Phone: NOM[facility] CI FMComment on above:Other chronic pain (Primary Dx); Sinusitis, unspecified chronicity, unspecified location; Lumbosacral spondylosis without myelopathyStart: 11-25-2024 End: 92-76-9990pmwkfzxogiKrbug Kaiser DOMÍNGUEZ POPULATION HEALTHStart: 11-04-2024 End: 64-27-1213ohsgihjmxuSPSDI M ALDANot AvailableStart: 10-18-2024 End: 39-09-4980SlhgpeWtjymgv Courtney HUERTA CI FMComment on above:Lumbosacral spondylosis without myelopathyStart: 98-84-2452ejfrwtijyuENEMercy Regional Medical Center AmbulatoryStart: 09-23-2024 End: 34-92-1124Ghpxzgzrejdud Saima Garcia [facility] Vascular SurgeonsStart: 09-12-2024 End: 00-71-6974OzwgnzXfbxo M Alda MD Work Phone: N[facility] CI FMComment on above:Lumbosacral spondylosis without myelopathyStart: 08-20-2024 End: 97-47-8535Rxolsezltuzim Saima Garcia [facility] Vascular SurgeonsStart: 08-12-2024 End: 62-85-3758Dihkoa outpatient visit 25 minutesFlash Lovelace MD Work Phone: NOM[facility] CI FMComment on above:Other chronic pain (Primary Dx); Primary insomnia; Seasonal allergic rhinitis due to pollen; Encounter for vaccination; Phantom limb pain (CMS/HCC)Start: 08-12-2024 End: 52-77-9212ggqmnvotylKHAAP M ALDANot AvailableStart: 08-06-2024 End: 68-23-6719HlbwyeRoqhl M Alda MD Work Phone: [facility] CI FMComment on above:Lumbosacral spondylosis without myelopathyStart: 08-01-2024 End: 95-38-3624Ejvbus OnlyLudivina Gracia [facility], Lung & Vascular SurgeonsComment on above:PVD (peripheral vascular disease) (HCC) (Primary Dx) Start: 07-29-2024 End: 69-30-3164vifcnyiatrKxzxptr [facility]acility:[facility] Centertart: 07-22-2024 End: 31-99-8915kwmgsjczboNZTRGLMetroHealth Parma [facility] Center Start: 07-11-2024 End: 22-30-5959Gweselqis Result EncounterGeneric External Data ProviderNOMS External Department UnsolicitedStart: 07-11-2024 End: 56-52-7689Rshraqwea Result EncounterGeneric External Data ProviderNOMS External Department UnsolicitedStart: 07-10-2024 End: 07-85-6350bljgzqmnujLIJCFTMetroHealth Parma Medical Center Start: 07-05-2024 End: 13-99-1526HcbuvgFgyjh M Alda MD Work Phone: N[facility] CI FMComment on above:Lumbosacral spondylosis without myelopathyStart: 07-03-2024 End: 44-01-6221Cddvefvrn Result EncounterGeneric External Data ProviderNOMS External Department UnsolicitedStart: 07-03-2024 End: 81-72-9133Zkioaksov Result EncounterGeneric External Data ProviderNOMS External Department UnsolicitedStart: 06-17-2024 End: 02-89-3616Ehbdcuksq Kavya Lovelace MD Work Phone: N[facility] CI FMStart: 05-28-2024 End: 07-77-6647nrctjfvutbPOJGGUNHolzer Hospital CenterStart: 05-21-2024 End: 12-34-9281Ekaoka Lynnette BROWER Work Phone: [facility] CI FMStart: 05-21-2024 End: 94-07-7205Xmhymx Lynnette BROWER Work Phone: [facility] CI FMStart: 05-21-2024 End: 04-35-6839Aekuyp outpatient visit 25 minutesZoë BROWER Work Phone: NOMS CI FMComment on above:Chest pain in adult (Primary Dx); Lumbosacral spondylosis without myelopathy; 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CMS/HCC); Seasonal allergic rhinitis due to pollenStart: 05-14-2024 End: 01-61-7871Hqtgjlorp Result EncounterGeneric External Data ProviderNOMS External Department UnsolicitedStart: 05-14-2024 End: 36-87-4306Gqlrqsxeb Result EncounterGeneric External Data ProviderNOMS External Department UnsolicitedStart: 05-13-2024 End: 22-99-5907Maowwsxdm Result EncounterGeneric External Data ProviderNOMS External Department UnsolicitedStart: 05-13-2024 End: 28-04-9602Bwnxuuzsf Result EncounterGeneric External Data ProviderNOMS External Department UnsolicitedStart: 05-12-2024 End: 21-77-6137ggelihmmbnFUSEB Jim Kovacs HospitalStart: 04-26-2024 End: 82-74-6521Jszjkx Lynnette BROWER Work Phone: [facility] CI FMStart: 04-26-2024 End: 88-38-9584Hqjslz Lynnette BROWER Work Phone: [facility] CI FMStart: 04-26-2024 End: 33-52-3130Zwgflus encounter Cherrie BROWER Work Phone: NOMS CI FMComment on above:Medicare annual wellness visit, subsequent (Primary Dx); ACP (advance care planning); Primary insomnia; Neuropathy; Other chronic pain; Paresthesia of skin; Phantom limb pain ([facility]/HCC); Polymyalgia rheumatica ([facility]); Mild persistent asthmatic bronchitis without complication ([facility]); Chronic bronchitis, unspecified chronic bronchitis type ([facility]); Dyspnea on exertion; Orthopnea; Snoring; Solitary pulmonary nodule; Abdominal aortic aneurysm (AAA) without rupture, unspecified part ([facility]); Aortic valve insufficiency, etiology of cardiac valve disease unspecified; Atherosclerosis of [place] coronary artery of [place] heart without angina pectoris ([facility]/HCC); Benign essential hypertension ([facility]/HCC); Stenosis of right carotid artery; Chronic heart failure with preserved ejection fraction ([facility]/HCC); Chronic ischemic heart disease ([facility]); Mitral valve insufficiency, unspecified etiology; Paroxysmal atrial fibrillation ([facility]); Preinfarction syndrome ([facility]); PVD (peripheral vascular disease) with claudication (CMS/HCC); [...] amputation of left foot (CMS/HCC); Atherosclerosis of [place] arteries of extremities with rest pain, unspecified extremity (CMS/HCC); Pulmonary hypertension, unspecified (CMS/HCC)Start: 04-24-2024 End: [id number]nd Clinictart: 12-26-2023 End: 15-87-4819btjvsgcfwpMLOUJKIP E PERRYFacility:[facility] FoundationueStart: 12-26-2023 End: 88-70-1792Xjvukan encounter procedureJENNIFER E JAY [facility] start: 10-17-2023 End: [id number] Flash Lovelace Work Phone: [facility] Work Phone: Start: 10-17-2023 End: 35-07-3440Xyuaazv encounter procedureMD Flash Lovelace Work Phone: [facility]-Electrodiagnostics Work Phone: Start: [id number]-patient / Non-visitMD Rugen [place] Work Phone: [facility] [facility] Vascular Surgery Work Phone: Start: 10-12-2023 End: 61-84-1473Ojpytaunl to same day surgery centerMD Flash Lovelace Work Phone: [facility]-Interventional Radiology Work Phone: Start: 10-12-2023 End: 96-67-3567lzxchiyxriUR Rugen M Alda Work Phone: [facility] Work Phone: Start: 10-03-2023 End: 88-60-6677nxcktpivrgVoqfjwh Buehrer Other [employer] Other Start: 44-07-8967Miblwz outpatient visit 25 minutes Cristian Mitchell Vascular SurgeryStart: 81-64-0516yurgwgrvigHEYQ [facility]tart: 08-10-2023 End: 17-35-5685Ltdmvm outpatient visit 15 minutesScar MATOS Work Phone: [facility] OrthopedicsComment on above:Hx of total hip arthroplasty, right (Primary Dx)Start: 08-10-2023 End: 03-90-5228Sftsrbiyrw hospital visit by Asad MATOS Work Phone: [facility] RadiologyStart: 08-09-2023 End: 67-33-9265Plxbhj outpatient visit 10 minutesMohsen Sarabia MD Work Phone: [facility] Heart, Lung & Vascular SurgeonsComment on above:Critical lower limb ischemia (HCC) (Primary Dx)Start: 06-20-2023 Documentation Lou [facility] Heart, Lung & Vascular SurgeonsStart: 42-02-1376Lneavg outpatient visit 25 minutesCristian Mitchell Vascular SurgeryStart: 06-12-2023 End: 53-77-3837smzqahfdcvDU Rugen M Alda Work Phone: [employer] Other Start: 06-12-2023 End: 77-36-0287Rfqxjuz encounter procedureMD Flash Lovelace Work Phone: [facility]-Ultrasound [facility] VascularStart: 06-06-2023 End: 03-05-7623Nvezr of hemosiderin, quantKaren Hemmer PA Work Phone: [facility] CenterStart: 23-33-6155Nqotru outpatient visit 25 minutesJackkell kSy Vascular SurgeryStart: 05-23-2023 End: 04-34-7411thonlknhmvMC Rugen M Alda Work Phone: [employer] Other Start: 05-23-2023 End: 72-48-0828Vbhvolq encounter procedureMD Flash Lovelace Work Phone: [facility]-Ultrasound [facility] VascularStart: 09-64-2414Ggthnr OnlyMohsen Sarabia MD Work Phone: [facility] Heart, Lung & Vascular SurgeonsComment on above:PAD (peripheral artery disease) (HCC) (Primary Dx)Start: 12-20-2022 End: 97-56-3521Nryaixn encounter procedureBRENNA MOSQUERA [facility] start: 12-07-2022 End: 21-11-2105lsnrptzbsuBR RUGEN ALDAFacility:J2Ymtwp: 11-14-2022 End: 53-70-8936ojvlcmfmxqOpalja Ruttino Other [facility] [employer] Other Start: 86-69-8902Bpzzpb-up encounterJajuliana FalkoFTAYLOR Vascular SurgeryStart: 11-10-2022 End: 04-92-5936qajjnayqooKL RUGEN ALDAFacility:R1Rmakj: 11-08-2022 End: 70-34-2846Davjiob encounter procedureJEMANUELA Hortensia MOSQUERA [facility] start: 11-03-2022 End: 42-88-3439Ovbgpydpij and management of inpatientGregory Ortiz Montoya MD Work Phone: [facility] Surgical Unit 3Start: 10-30-2022 End: 32-22-9457Wrwqdtocw department patient visitFLASH ESPINAL Work Phone: comment on above:Community acquired pneumonia of left lung, unspecified part of lung (Primary Dx); COPD exacerbation (HCC)Start: 10-11-2022 End: 01-48-4416jicaxzvkjnYJ FLASH ALDAFacility:O8Nchae: 06-17-6268Vmxitkezqvmru procedureJulia Borjas [facility] Heart, Lung & Vascular SurgeonsStart: 64-16-8423EkgzmfYrvci Coffing [facility] Pulmonary PhysiciansComment on above:Chronic obstructive pulmonary disease, unspecified COPD type (HCC)Start: 07-14-2022 End: 04-07-2240Htuwdp outpatient visit 15 minutesScar Ortega APRNPyrolia Work Phone: [facility] OrthopedicsComment on above:Hx of total hip arthroplasty, right (Primary Dx)Start: 07-14-2022 End: 52-45-7021Qujnhvgnid hospital visit by Asad Ortega APRNPyrolia Work Phone: [facility] RadiologyStart: 77-34-8988Eijcbt Only Katie [facility]io[facility] Heart, Lung & Vascular SurgeonsComment on above: Bilateral carotid artery stenosis (Primary Dx)Start: 05-03-2022 End: 58-96-9132eflbwtknmsPwylwba Buehrer Other [employer] Other Start: 61-49-6841Rkrjzb outpatient visit 25 minutes Cristian SmithPe[facility] Vascular SurgeryStart: 04-25-2022 End: 98-73-1248Xtoutwdsc to same day surgery centerMD Flash Lovelace Work Phone: [facility]-Interventional RadiologyStart: 04-19-2022 End: 65-37-3277yuvflmcmjoCpgfbem Buehrer Other [employer] Other Start: 73-53-6002Imwdfy outpatient new 45 minutes Cristian SarahPeak View Behavioral Health Vascular SurgeryStart: 96-85-9168Glxytjtqcqpcq procedureAaron Fenton DPM Work Phone: [facility]Start: 04-14-2022 End: 06-08-7315Qkkhbjyxt department patient visitCarson Brock MD Work Phone: [facility] Medical ObservationStart: 57-77-9924Csltqpbzcvkhu procedureKatie [facility] Heart, Lung & Vascular SurgeonsStart: 02-25-2022 End: 47-90-5312Iceclt outpatient new 45 minutesMuna Otto MD Work Phone: [facility] Pulmonary PhysiciansComment on above: Chronic obstructive pulmonary disease, unspecified COPD type (HCC) (Primary Dx); Pulmonary noduleStart: 01-28-2022 End: 92-10-0358absgwrfhupASSTHJD ALGHOTHANIFacility:E3Wgpnr: 01-18-2022 End: 04-58-8058Njthisugnz and management of inpatientSteven Jagruti Mcguire MD Work Phone: [facility] Surgical Unit 3Start: 73-74-3128Nylhigzhlnsqw procedureKatie [facility] Heart, Lung & Vascular SurgeonsStart: 01-12-2022 End: 19-14-9468Nsbubf outpatient visit 15 minutesDashawn Silvestre MD Work Phone: [facility] OrthopedicsComment on above:Hx of total hip arthroplasty, right (Primary Dx)Start: 01-12-2022 End: 03-18-5594Vzltwxvril hospital visit by Sebastian Silvestre MD Work Phone: [facility] RadiologyStart: 12-28-2021 End: 37-68-0620ppijnnekkkNPNNIDelaware Hospital for the Chronically Ill PhysiciansStart: 12-28-2021 End: 91-66-6778Fesgwn outpatient new 30 minutesLincolnHealth Work Phone: [facility] Physicians DermatologyComment on above: Actinic keratosis (Primary Dx); SK (seborrheic keratosis); Inflamed seborrheic keratosis; Skin tenderness; Xerosis cutisStart: 11-24-2021 End: 52-45-7597Nfphlp outpatient visit 15 minutesDashawn Silvestre MD Work Phone: [facility] OrthopedicsComment on above:Pain in prosthetic joint, subsequent encounter (Primary Dx)Start: 11-24-2021 End: 58-74-7107Xuagkfqpgz hospital visit by Sebastian Silvestre MD Work Phone: [facility] RadiologyStart: 04-06-2021 End: 26-59-3278Hzqpua Omar [facility] Heart, Lung & Vascular SurgeonsComment on above:Bilateral carotid artery stenosis (Primary Dx); PAD (peripheral artery disease) (HCC)PAD (peripheral artery disease) (HCC) (Primary Dx)Start: 09-11-2020 End: 72-96-9204Wbimzi OnlyRhonda Oviedo Work Phone: [facility] Start: 03-16-2020 End: 00-94-8980Kufegorpbt hospital visit by Solange Sarabia Work Phone: [facility] Peripheral Vascular Lab Comment on above:Bilateral carotid artery stenosisAtherosclerosis of [place]amp[place] arteries of the extremities with ulceration (HCC)Start: 10-21-2019 End: 59-43-7667Rhurwzbire hospital visit by Solange Sarabia Work Phone: [facility] CTComment on above:S/P bypass graft of extremity; PAD (peripheral artery disease) (HCC); Atherosclerosis of [place] arteries of the extremities with ulceration (HCC) Start: 10-09-2019 End: 03-52-2790Rwovsh outpatient visit 25 minutesRose Rosales Work Phone: [facility] Heart, Lung & Vascular SurgeonsComment on above:Pain of left lower extremity (Primary Dx)Start: 10-09-2019 End: 85-11-3236Emlpnogfej hospital visit by Solange Sarabia Work Phone: [facility] Cardiac Non-Invasive LabComment on above:Atherosclerosis of [place] arteries of the extremities with ulceration (HCC); S/P bypass graft of extremityStart: 03-18-2019 End: 44-45-3142Rxgvgqdtbp hospital visit by Solange Sarabia Work Phone: [facility] Peripheral Vascular Lab Comment on above:Bilateral carotid artery stenosisStart: 03-13-2019 End: 07-57-1928Zadvjr outpatient visit 10 minutesMohsen Sarabia Work Phone: [facility] Heart, Lung & Vascular SurgeonsComment on above:Critical lower limb ischemia (Primary Dx)Start: 03-13-2019 End: 03-29-6919Cyxbzktnwk hospital visit by Solange Sarabia Work Phone: [employer] W[facility] Cardiac Non-Invasive LabComment on above:Atherosclerosis of [place] arteries of the extremities with ulceration (HCC)Start: 12-17-2018 End: 30-54-1696Vhhdsc outpatient new 30 minutesEugene Barnett Work Phone: [facility] Physicians ENTComment on above:Referred otalgia of right ear (Primary Dx); Bilateral temporomandibular joint painStart: 04-41-4293Tbtcpje encounter procedureANALIA BRYANTacility:ENT Spec-NorthStart: 10-31-2018 End: 18-61-6113Amcrbcqgm department patient visitHIGHSPIRE Deanna WAYProvidence Hospitaltart: 10-31-2018 End: 20-85-7596Erdlsg outpatient visit 10 minutesMohsen Sureshck Walker Work Phone: [facility] Heart, Lung & Vascular SurgeonsComment on above:Gangrene of left foot (HCC) (Primary Dx); Critical lower limb ischemiaStart: 10-31-2018 End: 74-35-4768Vephtsdlwe hospital visit by Solange Sarabia Work Phone: [place] [facility] Cardiac Non-Invasive LabComment on above:Atherosclerosis of [place] artery of left lower extremity with rest pain (HCC) ; S/P bypass graft of extremity; Atherosclerosis of [place] artery of left lower extremity with rest pain (HCC) Start: 10-31-2018 End: 42-20-2707Hytucxv encounter procedureMohsen Sarabia Work Phone: [facility] Cardiac Non-Invasive LabComment on above: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 (HCC) ; S/P bypass graft of extremity; 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 (HCC)Start: 52-60-3889Tesuysxuvcne of care [facility]City [facility] & Care CoordinationStart: 10-26-2018 End: 32-88-0807Blyoxsq encounter procedureMine MurrayPaulding County HospitalStart: 10-25-2018 End: 28-87-5357Nqtuep follow up visit related to [facility] Hospitalmarissa Hargrove Lalitha Work Phone: [facility] Wound CareComment on above: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); Gangrene (HCC); PVD (peripheral vascular disease) (HCC); 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, left; Lower extremity edemaStart: 22-88-1610Ajowpqrcmbxg of care jeffreyPike [facility] & Care CoordinationStart: 10-19-2018 End: 46-74-5325Sgtofcd encounter procedureMine MurrayPaulding County HospitalStart: 10-18-2018 End: 76-13-6042Rtlkvq follow up visit related to original [facility] Hospitalmarissa Hargrove Lalitha Work Phone: [facility] Wound CareComment on above:Gangrene (HCC) (Primary Dx); 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 (HCC); PVD (peripheral vascular disease) (HCC); Lower extremity edema; 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, leftStart: 10-04-2018 End: 00-65-8671Nkdgvjmses and management of inpatientMOUNT GRAHAM REGIONAL MEDICAL CENTERRANDA HARGROVE PRVALDOBoise Veterans Affairs Medical Centertart: 10-04-2018 End: 63-00-1171Kdvvnsngpz and management of inpatientBarnes-Jewish West County Hospitalranda Mann Work Phone: [facility] 4 Bone & JointComment on above: Acute post-operative pain (Primary Dx)Start: 10-04-2018 End: 31-59-9333Tggrth outpatient visit 15 minutesFlynn Mann Work Phone: [facility] Wound CareComment on above:Gangrene (HCC) (Primary Dx); PVD (peripheral vascular disease) ([facility]); Left foot pain; Critical lower limb ischemia; Ulcer of toe of left foot, with necrosis of bone (HCC)Start: 09-27-2018 Coordination of care planJoaquínuniversity of new mexico hospitalsjose Maier [facility] UM & Care CoordinationStart: 09-27-2018 End: 99-89-8626Epcaota encounter procedureCarmillicent Maier [facility] HospitalStart: 09-21-2018 End: 07-55-4818Naltauuntdfq of care planRadha Matos [facility] Wound CareStart: 09-21-2018 End: 57-43-0191Jdxvbtc encounter procedureMine MurrayPaulding County HospitalStart: 09-20-2018 End: 82-34-5684Mhdugwy encounter procedureFlynn Mann Work Phone: [facility] FluoroscopyComment on above:Critical lower limb ischemiaStart: 09-20-2018 End: 69-34-2576Pibkex outpatient visit 15 minutesFlynn Mann Work Phone: [facility] Wound CareComment on above:Critical lower limb ischemia (Primary Dx); Gangrene (HCC); PVD (peripheral vascular disease) (HCC); Left foot painStart: 09-04-2018 End: 78-21-5617Gyvtnlwkob and management of inpatientNicole Keisha Em Work Phone: [facility] Vascular Thoracic Surgery Comment on above:Ischemic foot (Primary Dx); PAD (peripheral artery disease) (HCC); Critical lower limb ischemiaStart: 38-52-4114Ytfqdsy encounter procedureBARRACHEL Carver HospitalStart: 05-19-4712Zyykjmc encounter procedureBARRACHEL Carver HospitalStart: 51-98-3809Rzvsuvf encounter procedureBARRACHEL Carver HospitalStart: 10-31-2016 End: 57-47-2698VgsacvzgqcAYTS Deanna CARPENTEROMIDFacility:UTMCStart: 03-06-2014 End: 26-44-8499Eqrmirj encounter procedureOhioHealth [facility] Procedures DateProcedureProcedure DetailPerforming ClinicianStart: 71-25-1690Cubqrxhdohjess Hernandez MD Work Phone: Start: 99-85-1196Kaemrypd Sandra Garcia MD Work Phone: start: 19-45-9086Lbxnusez Sandra NOELomment on above:Performed By: #### XM #### [facility] ([facility]) [address] [place] [id number]: 44-25-5680Pzllk typing serologic Tremaine Garcia MD Work Phone: Start: 42-05-2066SYZ AND ELECTRONIC Irving Garcia MD Work Phone: Start: 55-55-7701Nabimrjc blood count with white cell differential, Nancy Garcia MD Work Phone: Start: 24-25-7881Hvukxpnylz bloodJose Manuel Hernandez MD Work Phone: Start: 71-55-7749VBC AND ELECTRONIC Irving Garcia MD Work Phone: Start: 45-40-3207Cftdotqa blood count with white cell differential, automatedRafaela Garcia MD Work Phone: Start: 55-76-5005Tfiwngwtxx bloodRafaela Garcia MD Work Phone: Start: 53-06-7774Naxbrtl function panelRafaela Garcia MD Work Phone: Start: 85-38-3062Livre count hematocritRafaela Garcia MD Work Phone: Start: 12-52-5072Rset screen quantitative vancomycin Gail Awad [facility] Work Phone: Start: 83-74-7313Rax bact xcpt urine blood/stool aerobic isolRafaela Garcia MD Work Phone: Start: 54-78-9945V-reactive proteinSeth W Murray DPM Work Phone: Start: 37-34-3807Oxkzewzall bloodJose Manuel Hernandez MD Work Phone: Start: 08-66-7579Oy abdominal real time w/image limitedAndglen Hernandez MD Work Phone: Start: 27-77-6996Luihlwjqt b surf antibody hbsabAnjud Hernandez MD Work Phone: Start: 07-84-8627Eyqfdesij directJose Manuel Hernandez MD Work Phone: Start: 38-36-3353XEQ AND ELECTRONIC DIFFJose Manuel Hernandez MD Work Phone: Start: 50-92-2406Vepkfvup blood count with white cell differential, automatedJose Manuel Hernandez MD Work Phone: Start: 83-73-5391Rxkac chest X-rayFlash Lovelace MD Work Phone: Start: 25-72-4868MGS BASIC METABOLIC PANELGeneric External Data ProviderStart: 49-11-7238MKN C REACTIVE PROTEINGeneric External Data ProviderStart: 42-92-8015ZT FOOT RT MIN 3VGeneric External Data Provider Start: 75-03-2621SUH CBC WITH AUTO DIFFGeneric External Data ProviderStart: 33-39-6893OXPATF SIMPLEX VIRUS 1Kjean-paul BROWER Work Phone: Start: 04-24-8493Iktjg metabolic panel calcium total Muna Otto MD Work Phone: Start: 32-80-3233Qug-invas physiologic std extremity art 2 levelMattharrison Barraza MD Work Phone: Start: 90-58-6170Vlygy metabolic panel calcium total Muna Otto MD Work Phone: Start: 29-68-9280Cjycy metabolic panel calcium total Muna Otto MD Work Phone: Start: 38-46-5151Dbxlz metabolic panel calcium total Muna Otto MD Work Phone: Start: 49-63-7280Unxpa count hematocritAna Luisa Murray MD Work Phone: Start: 54-08-8975Wamuxhqhcen extremity unilateral rs&i Mohsen Sarabia MD Work Phone: Start: 03-17-2025 End: 61-90-6742Wze fem-ant tibl pst tibl proneal art/oth dstlJoy Cornelio Sarabia MD Work Phone: Start: 43-92-4901Uejcutg measurementCleveland Clinic Children'S [facility] Physicians Work Phone: Start: 81-95-9063Anpaz metabolic panel calcium total Muna Otto MD Work Phone: Start: 29-01-4372Ypksgafocuwxcy time partial plasma/whole bloodAna Luisa Murray MD Work Phone: Start: 58-48-1892Fey routine ecg w/least 12 lds trcg only w/o i&rHafsdeanna Murray MD Work Phone: Start: 21-91-6724Zqctr typing serologic aboBeena Barraza MD Work Phone: Start: 95-06-3088Ekvmivnrljn timeMattharrison Barraza MD Work Phone: Start: 42-05-5465Cecjz metabolic panel calcium total Muna Otto MD Work Phone: Start: 07-98-7777Mchydtavqbnjng time partial plasma/whole bloodDavid Richie Mast MD Work Phone: Start: 02-33-2523Itdpg count hematocritAna Luisa Murray MD Work Phone: Start: 01-82-4951Hxtnd metabolic panel calcium total Muna Otto MD Work Phone: Start: 03-14-2025 End: 66-74-3049Wkm-scan xtr veins unilateral/limited studyMashayy Barraza MD Work Phone: Start: 76-89-6331Qab routine ecg w/least 12 lds trcg only w/o i&rPatrick Magy Otto MD Work Phone: Start: 74-91-0746Szx routine ecg w/least 12 lds trcg only w/o i&rElizabeth Keisha Escobar CNP Work Phone: Start: 44-49-3706Bvzggzdr blood count with white cell differential, manualScott Muna Stallings PA-C Work Phone: Start: 03-55-5221LFOWZHANNA Macdonald MD Work Phone: Start: 78-22-7441WZSTILINA Macdonald MD Work Phone: Start: 02-54-2232YHRIAMY Macdonald MD Work Phone: Start: 12-94-7441Bazszjnvjwk timeScott Muna Haylie PA-C Work Phone: Start: 50-38-5355MLIYMSJALIVIA Macdonald MD Work Phone: Start: 65-30-2558Splyal-up visitFollow-upELACRISTEL PARRA [facility]THStart: 19-17-1539IR DSA (Angiogram) Right LegFlash Lovelace MD Work Phone: Start: 19-69-6338SXKDWQOBUAGQDNMBC REPORTJoy Cornelio Sarabia MD Work Phone: Start: 09-69-6456Ufooh dip stick/tablet rgnt non-auto w/o micrscpKim Meet Wilson NP Work Phone: Start: 70-65-4731Pojeciy of amputation of footAcquired absence of left footErika Saab LPNStart: 51-45-6080ZOR BASIC METABOLIC PANEL Generic External Data ProviderStart: 98-60-8167TVJ CBC WITH AUTO DIFFGeneric External Data ProviderStart: 15-08-4638AAN SED RATEGeneric External Data ProviderStart: 37-79-4963VKNV DIFFERENTIALGeneric External Data ProviderStart: 72-02-1124RTQ BASIC METABOLIC PANELGeneric External Data ProviderStart: 96-42-6088Wrazdzz of coronary artery bypass graftingHx of CABGFlash Lovelace MD Work Phone: Start: 51-00-0672INF MAGNESIUMGeneric External Data ProviderStart: 85-99-9780QML TROPONIN IGeneric External Data ProviderStart: 60-79-6161EENL BASIC METABOLIC PANEL REFLEX MGGeneric External Data Provider Start: 13-41-6204PEY PROTIME/INRGeneric External Data ProviderStart: 10-12-2023 AngiographyMD Flash Lovelace Work Phone: Start: 44-83-8769Vmyyuvykhl (US) doppler flow mapping of vein of upper limbMD Flash Lovelace Work Phone: Start: 18-79-0093CL scan venography of lower limbsMD Flash Lovelace Work Phone: Start: 98-35-2987Ecdhcer ultrasonography of bilateral carotid arteriesMD Flash Lovelace Work Phone: Start: 57-61-6422Soszk brachial pressure indexMD Flash Lovelace Work Phone: Start: 06-34-7514Ndsmho scan of lower limb arteriesMD Flash Lovelace Work Phone: Start: 39-34-3352Ynruhhr of amputation of footStatus post amputation of footToneen Christine PA Work Phone: Start: 92-30-8971Ethorbssba exam chest single view Jose Escalona [facility] Work Phone: Start: 10-83-4288Xussc function panelDuke Claros MD Work Phone: Start: 24-56-7658Fbqpj of troponin quantitative Jass Barboza MD Work Phone: Start: 09-22-9104Wuvua of troponin quantitative Jass Barboza MD Work Phone: Start: 23-58-3879Hav routine ecg w/least 12 lds trcg only w/o i&rJlucy Barboza MD Work Phone: Start: 39-51-0060Txckh function panelDuke Claros MD Work Phone: Start: 44-68-6031IYK w or wo fol wcon,DopplerDuke Claros MD Work Phone: Start: 94-52-3552Rhnyd function panelDuke Claros MD Work Phone: Start: 58-30-0001Csnxt function Mario Alberto Claros MD Work Phone: Start: 57-60-1768Bbwag humerus minimum 2 viewsGustavo Macdonald [facility] Work Phone: Start: 30-66-0174Ngfuu function Mario Alberto Claros MD Work Phone: Start: 11-04-2022 End: 06-77-1320Wlht ia mult step method nos each organismDuke Claros MD Work Phone: Start: 23-93-1866Icsop s aureus methicillin resist amp probe tqUri Downey PharmDStart: 36-02-9329Cjvcmvqfnp chain reaction analysis Duke Claros MD Work Phone: Start: 33-77-7308BGMW-CoV-2 (COVID-19) RNA [Presence] in Respiratory specimen by OREN with probe detectionRonnie Montoya MD Work Phone: Start: 62-86-7675Uw angiography chest w/contrast/noncontrastKrsejala Carline Khan PA-C Work Phone: Start: 24-98-6149Gmzxk of troponin quantitativeGregrafal Montoya MD Work Phone: Start: 70-08-0614Ochcsukzzm exam chest single view Aurelia Awilda Juana [facility] Work Phone: Start: 92-55-0087Hzqvh foot complete minimum 3 views Aurelia Awilda Juana [facility] Work Phone: Start: 78-09-2531Wqt-scan xtr veins complete bilateral studyKimberly Awilda Juana [facility] Work Phone: Start: 88-24-9901Npqcj metabolic panel calcium total Aurelia Awilda Fowler [facility] Work Phone: Start: 30-87-9210Y-reactive proteinKimberly Awilda Juana [facility] Work Phone: Start: 13-13-2728BOMF TOPTriage Protocol Emergency MD Start: 20-53-0738ZRRPI BLUE TOPTriage Protocol Emergency MDStart: 11-03-2022 LIGHT GREEN TOPTriage Protocol Emergency MDStart: 11-34-9413TLCP TOPTriage Protocol Emergency MDStart: 05-48-5857Ibt routine ecg w/least 12 lds trcg only w/o i&rKimberly Awilda Tillman [facility] Work Phone: Start: 11-03-2022 End: 58-34-2284SIUKZYY DRAWTriage Protocol Emergency MDStart: 25-28-2964MSWYI CONTAINERTriage Protocol Emergency MDStart: 11-03-2022 End: 28-90-2907Dwlat dip stick/tablet reagent auto microscopyKimbersue Tillman [facility] Work Phone: Start: 99-59-5416Hacin respiratry probe & rev trnscr 12- targetDalila Arreguin MD Work Phone: Start: 62-71-6831Towhjxsslf exam chest single view Dalila Arreguin MD Work Phone: Start: 89-56-7100ZNPXTFPTQRQDOnnjw D Baker MD Work Phone: Start: 10-30-2022 End: 09-46-8224Ygkhkwtqksf peptideDalila Arreguin MD Work Phone: Start: 21-65-5470ESE screeningDR RUGDANA ALDAComment on above:Performed By: #### PSAD #### [facility] [address] [place] [address] Dr. Benedict EdmondsonStart: 21-21-2145Keodhgwxag ([place]) doppler flow mapping of vein of upper limbMD Rugen [place] Work Phone: Start: 33-06-0421Ultbuixwqx peripheral vascular flow studyMD Rugen [place] Work Phone: Start: 60-29-4877Zpbtoeroi aortogramMD Rugen [place] Work Phone: Start: 12-11-9134SEHG-CoV-2 (COVID-19) RNA [Presence] in Respiratory specimen by OREN with probe detectionCarson Brock MD Work Phone: Start: 22-88-7051Eti-invas physiologic std extremity art 2 levelJoshua Jim Calixto DO Work Phone: Start: 59-47-5728Pjx abdl aorta&bi iliofem w/contrast&postpJoshua Jim Calixto DO Work Phone: Start: 54-64-9166Snigw metabolic panel calcium total Mehnaz Fernandez Elmira Lamb PA-C Work Phone: Start: 18-02-5750DDKE TOPTriage Protocol Emergency MD Start: 21-02-1079LEPWWTZC TOPTriage Protocol Emergency MDStart: 23-43-8998YHBLD GREEN TOPTriage Protocol Emergency MDStart: 96-92-2759MHXG GREEN TOPTriage Protocol Emergency MDStart: 45-60-8570LPJV TOPTriage Protocol Emergency MDStart: 27-97-6273OMIFXEC DRAWTriage Protocol Emergency MDStart: 98-00-0656Qumrj count complete auto&auto difrntl wbcParvez Mak MD Work Phone: Start: 20-78-5091Yzqda metabolic panel calcium total Parvez Mak MD Work Phone: Start: 49-75-7022Sr thorax w/o contrast Radha Mak MD Work Phone: Start: 01-19-2022 End: 28-20-9526PslikqvdsqhkhjtfeMvbyiigu Not In SystemStart: 15-60-4722Antmf metabolic panel calcium totalZeesosmani Back DO Work Phone: Start: 69-57-4977Crp abdl aorta&bi iliofem w/contrast&postpZeeshan Arturo Back DO Work Phone: Start: 78-53-7703Wzk routine ecg w/least 12 lds w/i&r Mikey Mcguire MD Work Phone: Start: 01-18-2022 End: 86-40-0190Rwngd ankle complete minimum 3 viewsSamanshannon Ojeda PA-C Work Phone: start: 01-18-2022 End: 24-46-6708Kifgo metabolic panel calcium totalMehnaz Ku Adonis PA-C Work Phone: Start: 12-05-1877G-reactive proteinMehnaz Lamb PA-C Work Phone: Start: 56-29-4997Bstotlk bacterial blood aerobic w/id isolatesMehnaz Garciage Lamb PA-C Work Phone: Start: 54-17-8475ZUIM Jailyn Mcguire MD Work Phone: Start: 40-86-1724TQMJK BLUE Jailyn Mcguire MD Work Phone: Start: 85-68-5714LMBTA GREEN Jailyn Mcguire MD Work Phone: Start: 73-44-4894MGZDPY VENOUS BLOOD GASES AND PERFORM Mehnaz Garciage Lamb PA-C Work Phone: Start: 07-78-3531XPUP Jailyn Mcguire MD Work Phone: Start: 12-55-3413QIIDYLJ DRAWSteven Jagruti Mcguire MD Work Phone: Start: 74-21-9332Enp routine ecg w/least 12 lds w/i&r Sleeve Machine Tender GenericStart: 93-71-8804Pzdxdww artery doppler assessmentCalhoun [employer] Work Phone: Start: 63-17-7788Qzw-invas physiologic std extremity art 2 levelCalhoun [employer] Work Phone: Start: 59-97-3319Kix abdl aorta&bi iliofem w/contrast&postpJoy [employer] Work Phone: Start: 69-68-8217Xgyctsvauq [Mass/volume] in BloodCalhoun [employer] Work Phone: Start: 47-14-7597Ait-invas physiologic std extremity art 2 levelMohsen Sarabia Work Phone: Start: 40-67-3302Gpi-scan lxtr art/artl bpgs uni/lmtd studyMohsen Sarabia Work Phone: Start: 83-89-5464Osqkqnr artery doppler assessmentMohsen Sarabia Work Phone: Start: 22-21-1239Ezi-invas physiologic std extremity art 2 levelMohsen Sarabia Work Phone: Start: 10-38-3958Tjg-scan lxtr art/artl bpgs uni/lmtd studyMohsen Sarabia Work Phone: Start: 14-70-7809Ymq-invas physiologic std extremity art 2 [facility] hospitalMohsen Sarabia Work Phone: Start: 31-36-0569Unurdbcaxs [Mass/volume] in Serum or PlasmaHalle OrlinskiStart: 37-90-1143Hnjkuhocxb [Mass/volume] in Serum or Plasma Edwina WillettersonStart: 10-91-9459Alkodezuxj [Mass/volume] in Serum or Plasma Edwina BrowneStart: 90-89-6751Wsvwhuth blood count (hemogram) panel - Blood by Automated countStan Canseco Work Phone: Start: 46-77-7952Xrimjahnwa [Mass/volume] in Serum or PlasmaHalle OrlinskiStart: 06-01-5356BcnqpyzffgkzgbdnhjymjwwanhMbarcra Gustavo Mikey Work Phone: Start: 24-11-1858Ndkptinwj on tissue specimenMichael Gustavo Mikey Work Phone: Start: 39-22-8040Kjtgifzaz of esophagusMichael Gustavofoster Jensen Work Phone: Start: 50-94-9373Ounuaqrypn [Mass/volume] in Serum or PlasmaHalle OrlinskiStart: 09-85-1442Iemafnplpw and Hematocrit panel - Blood Stan Canseco Work Phone: Start: 68-42-3789Igcssetzuv [Mass/volume] in Serum or Plasma --troughElizabeth LakatosStart: 79-53-2017Qhydaycjfi and Hematocrit panel - BloodStan Canseco Work Phone: Start: 54-40-2144Ooreancmsl and Hematocrit panel - BloodStan Canseco Work Phone: Start: 48-09-0308Uosfykpqck exam chest single view Stna Canseco Work Phone: Start: 17-62-6173Vsftk occult peroxidase actv qual other sourcesStan Canseco Work Phone: Start: 91-70-9680Ndyztssw blood count (hemogram) panel - Blood by Automated countYelloYello Work Phone: Start: 78-80-9512Kgfrr metabolic 2000 panel - Serum or PlasmaBrian Houng Work Phone: Start: 86-34-8165Dwckvmmdaq [Mass/volume] in Serum or PlasmaHalle OrlinskiStart: 28-23-4606ZdylrdsjrgpgvmkeLwoa Rajiv Choi Work Phone: Start: 95-86-5465Naccotygap examination foot 2 views Ofe Israel Work Phone: Start: 19-80-4153XXWDFU TITRATEBrcedrick Wood Work Phone: Start: 88-41-9495Kycinrdgb on tissue specimenFlynn Mann Work Phone: Start: 10-08-2018 End: 36-96-2607OKQEUXJRVC TRANSMETATARSALBraranda Mann Work Phone: Start: 44-69-3590Dvpcz metabolic 2000 panel - Serum or PlasmaBrian Houng Work Phone: Start: 58-53-1029Nvnxnegg blood count (hemogram) panel - Blood by Automated countCoupFlipian [employer] Work Phone: start: 02-77-7914NTE in Platelet poor plasma by Coagulation assayOfe Wood Work Phone: Start: 15-19-3106Hkitvlbxbg [Mass/volume] in Serum or Plasma --troughHalle OrlinskiStart: 60-29-9102Ucvxzgznnk [Mass/volume] in Serum or PlasmaHalle OrlinskiStart: 59-36-7329Kueneuya blood count (hemogram) panel - Blood by Automated countTyler R Elodia Work Phone: Start: 40-40-149222 lead ECGEric Rajiv Perez Work Phone: Start: 11-11-7253Vtplf metabolic 2000 panel - Serum or PlasmaTyler R Teshantanulliager Work Phone: Start: 41-45-0197L-ray of left footTyler R Elodia Work Phone: Start: 83-47-3836Ylfqxvmo blood count with white cell differential, automatedTyler R Juan Daniellliager Work Phone: Start: 85-01-0075Eiptcuzb blood count with white cell differential, manualTyler R Juan Daniellliager Work Phone: Start: 45-06-8253Rylpoklmess sedimentation rate by Westergren methodTyler R Juan Danielllpooja Work Phone: Start: 10-04-2018C reactive protein [Mass/volume] in Serum or PlasmaTyler R Tewilliager Work Phone: Start: 72-75-6955Naibkvwxoyrch metabolic 2000 panel - Serum or PlasmaTyler R Tewilliager Work Phone: Start: 79-56-0012Fjtgzsptid A1c/Hemoglobin.total in BloodTyler R Teshantanulliager Work Phone: Start: 29-09-9870M-ray of left ankleBradley Beena Mann Work Phone: Start: 64-80-8273L-ray of left footBradley Beena Mann Work Phone: Start: 01-25-1957Upihlxmcej and Hematocrit panel - BloodKramrciano Franco Work Phone: Start: 56-88-0409Tssjp metabolic 2000 panel - Serum or PlasmaNirvana B Saraswat Work Phone: Start: 11-74-2581Heyabskm blood count (hemogram) panel - Blood by Automated countNirvana B Saraswat Work Phone: Start: 86-78-8511PYA in Platelet poor plasma by Coagulation assayNirvana B Clotildeaswat Work Phone: Start: 48-88-0480Xpdzmxwx blood count (hemogram) panel - Blood by Automated countNicole Keisha Duranchristiana [facility] Work Phone: Start: 89-77-0000Hgcup metabolic 2000 panel - Serum or PlasmaNirvana B Saraswat Work Phone: Start: 35-43-6030Zbxcykxw blood count (hemogram) panel - Blood by Automated countNirvana B Saraswat Work Phone: Start: 23-87-9176CVH in Platelet poor plasma by Coagulation assayNirvana B Clotildeaswat Work Phone: Start: 77-32-4361Nnsshnpplt and Hematocrit panel - BloodKrmarciano Franco Work Phone: Start: 01-87-6477Svllmm RBC preparationNirvana B Clotildeaswat Work Phone: Start: 92-92-2959Wlyyq type and Indirect antibody screen panel - BloodNirvana B Saraswat Work Phone: Start: 19-31-0113Emmue metabolic 2000 panel - Serum or PlasmaNirvana B Saraswat Work Phone: Start: 75-28-0461Cpzqznvh blood count (hemogram) panel - Blood by Automated countNirvana Erin Ivorywat Work Phone: Start: 17-89-9174ROM in Platelet poor plasma by Coagulation assayNileena Cabat Work Phone: Start: 45-22-1234Ztmnqzqj blood count (hemogram) panel - Blood by Automated countNicole Keisha Reneeitinger Work Phone: Start: 05-86-4962HzbdkjzudreibznfmGmysspee Not In SystemStart: 36-01-7769Inq-invas physiologic std extremity art 2 levelDrew Hortensia Nicolkemal Work Phone: Start: 42-91-5147Xujat metabolic 2000 panel - Serum or PlasmaNileena Cabat Work Phone: Start: 38-44-9095Curczvig blood count (hemogram) panel - Blood by Automated countKingarvdulce Rincon Work Phone: Start: 22-28-1921OMR in Platelet poor plasma by Coagulation assayMiryam Rincon Work Phone: Start: 57-96-9737Tjbbpqkgot and Hematocrit panel - BloodKristen Rebecca Franco Work Phone: Start: 69-78-8624Jtiqzelmzt and Hematocrit panel - BloodKristen Rebecca Franco Work Phone: Start: 90-74-2949Sgmmh metabolic 2000 panel - Serum or PlasmaNirvana B Dianelyswat Work Phone: Start: 57-31-2835Krwpjrxn blood count (hemogram) panel - Blood by Automated countNirvana B Dianelyswat Work Phone: Start: 54-15-9487VLU in Platelet poor plasma by Coagulation assayNileena Cabat Work Phone: Start: 53-23-7032Ftwxg metabolic 2000 panel - Serum or PlasmaNirvana B Saraswat Work Phone: Start: 66-15-7829Pqdlmzwr blood count (hemogram) panel - Blood by Automated countNirvana B Saraswat Work Phone: Start: 99-32-2960IFA in Platelet poor plasma by Coagulation assayNirvana B Dianelyswat Work Phone: Start: 66-68-9956GI OR ANG ADDJigsaw Work Phone: Start: 96-91-4236Tcwztiolxok up to 1 hour physician/qhp timeJigsaw Work Phone: Start: 09-07-2018 End: 64-55-6645ZWIRUY PERONEAL FEMORALJigsaw Work Phone: Start: 78-64-1509RHIS - referenceKristen Rebeccahortensia Franco Work Phone: Start: 08-84-3189Mbydchjbvb exam chest single view Vianca Rebecca Franco Work Phone: Start: 82-88-8339EOKB - referenceMichael [employer] Work Phone: Start: 06-40-8618Bmjkx metabolic 2000 panel - Serum or PlasmaNirvana B Saraswat Work Phone: Start: 29-08-7083Ggsuxsnx blood count (hemogram) panel - Blood by Automated countNirvana B Dianelyswat Work Phone: Start: 39-01-7401AWE in Platelet poor plasma by Coagulation assayNirvana B Dianelyswat Work Phone: Start: 85-21-1261MHSB - referenceKristen Rebecca Franco Work Phone: Start: 28-43-0892Iqwer group typingJoy [employer] Work Phone: Start: 02-89-1309Pqskboft blood count (hemogram) panel - Blood by Automated countNicole Keisha Veitinger Work Phone: Start: 42-93-0317Ixcqm type and Indirect antibody screen panel - BloodMiryam Rincon Work Phone: Start: 24-11-4364Fok-scan xtr veins unilateral/limited studyDrromero Bazan Nicolkemal Work Phone: Start: 27-61-5330Caeih metabolic 2000 panel - Serum or PlasmaMichael [employer] Work Phone: Start: 33-23-2821Mppejjnz blood count (hemogram) panel - Blood by Automated countMichael [employer] Work Phone: Start: 88-38-9474Puwrbsm catheterizationChelsdinorah Diaz Work Phone: Start: 37-07-452821 lead ECGChelsdinorah Diaz Work Phone: Start: 59-00-7789MFEW - referenceNicole Keisha Maria Antonia Work Phone: Start: 09-07-2378Mpk-scan lxtr art/artl bpgs uni/lmtd studyChelsdinorah Diaz Work Phone: Start: 00-83-1195CYWG - referenceNicole Keisha Veitinger Work Phone: Start: 84-83-9027Fmema metabolic 2000 panel - Serum or PlasmaAmanda Triston Mckeon Work Phone: Start: 13-25-3617Hiraiodo blood count (hemogram) panel - Blood by Automated countMirna Mckeon Work Phone: Start: 76-44-5199Xqrpdqahdvli imaging procedureNicole Keisha Veitinger Work Phone: Start: 70-82-2467pHON in Blood by Coagulation assay Tiana Keisha Reneeitinger Work Phone: Start: 39-16-6431Vhktzqhr blood count (hemogram) panel - Blood by Automated countNicole Keisha alooma Work Phone: [phone]: 88-41-7111[employer] TOPNicole [employer] Work Phone: [phone]: 00-16-9737BPSZO GREEN TOPNicole [employer] Work Phone: [phone]: 84-51-6758AXTB GREEN TOPNicole [employer] Work Phone: [phone]: 41-68-9668YJCF TOPNicole [employer] Work Phone: [phone]: 35-96-9796MVORIPC DRAWNicole [employer] Work Phone: [phone]: 79-05-077450 lead ECGNicole [employer] Work Phone: [phone]-art: 26-84-5457Zgeoynfpou, device (physical object) BRENNA MOSQUERA Start: 39-16-6644SzastmhjosxlxLGBZPYYM PERRY Start: 98-25-1914Ipkeyatfzxm biopsy of prostate using ultrasound guidanceBRENNA MOSQUERA [...] on above:x7 Plan of Treatment DateCare ActivityDetailAuthorStart: 77-12-3455RHxA/Tdap/Td vaccine (2 - Td or Tdap)DTaP/Tdap/Td vaccine (2 - Td or Tdap)WYANDOTStart: 69-91-5203Yabqxtz vaccinationOhioHealthStart: 10-14-2026Medicare Annual Wellness (AWV)Medicare Annual Wellness (AWV)[facility] HealthcareStart: 98-43-9269Jpbbsvbuf [Moles/volume] in Serum or PlasmaPOTASSIUMOSU St. [facility] CenterStart: 93-38-2789Evsflqbnvz screening using PHQ-9 (Patient Health Questionnaire 9) scoreDepression Screening/Follow-Up (PHQ-2/9)OhioHealthStart: 06-10-2025 End: 64-52-5665Kiehk 1996 panel - Serum or PlasmaLipid panel Lab Routine Screening for lipid disorders Medicare annual wellness visit, subsequent Exp ected: 06/10/2025 (Approximate), Expires: 06/10/2026[facility] Work Phone: Comment on above:Expected: 06/10/2025 (Approximate), Expires: 06/10/2026Start: 06-10-2025 End: 96-62-4321Zdspsnr encounter procedureNOMS [place] Dickey MedinceComment on above:ArrivedStart: 05-20-2025 End: 11-28-1563Ulbjdeq encounter zuiysqyug33/23/2025 1:00 PM EDT Office Visit [facility] [place] Dickey aNdya [address] [place] [address] Flash Lovelace MD [address] [place] [address] [facility] [place] [facility]nceStart: 05-09-2025 [facility] CenterStart: 70-92-1930HomubpuvjWestern Reserve Hospital CenterStart: 91-69-2246WbvnhxwcfrtySjvormris Regional Medical CenterStart: 51-78-3499NmnagfcrpWestern Reserve Hospital CenterStart: 31-03-9042GhjijchbdWestern Reserve Hospital CenterStart: 65-70-1097KvfyngqmlWestern Reserve Hospital CenterStart: 07-03-7387Dvbmreqc admissionSumma Health Wadsworth - Rittman Medical Centertart: 05-02-2025 [facility] CenterStart: 70-49-8409DbeeutqrnWestern Reserve Hospital CenterStart: 71-52-6463Mnjipmzgfjm Panel (PCR)Respiratory Panel (PCR)[facility] CenterStart: 05-02-2025 End: 73-76-7046Kklsmcs encounter ucvrthqvf89/05/2025 1:00 PM EDT Office Visit [facility] [place] [facility] [address] [facility] [address] [place] [address] Zoë King PA [address] [facility] [address] [place] [address] ArrivedNOMS [place] [facility] GordonnceComment on above:ArrivedStart: 40-76-7150RDJRH-19 VACCINE ( season)COVID-19 VACCINE ( season)[facility] CenterStart: 46-33-3991Wroqdtjav vaccinationInfluenza Vaccine (#1)[facility] DakotaHealthStart: 08-30-2025Medicare Annual Wellness (AWV)Medicare Annual Wellness (AWV)[facility] HealthcareStart: 04-24-2025 End: 16-11-3565Xdteasp encounter qtxquolcf44/28/2025 1:00 PM EDT Office Visit [facility] [address] [facility] [address] [place] [address] Emmanuel Gonzalez DPM [address] [facility] 5 [place] [address] N[facility] CI PODIATRYStart: 04-14-2025 End: 29-93-9543VH Foot - right WO contrastMR foot right wo IV contrast Imaging Routine Osteomyelitis of right foot, unspecified type (HCC) Expected: 04/14/2025, Expires: 04/14/2026[facility] Work Phone: Comment on above:Expected: 04/14/2025, Expires: 04/14/2026Start: 04-08-2025 End: 91-42-2052EDNJARNJBQL WOUND (HTRX)SUPERFICIAL WOUND (HTRX) Lab Routine Ischemic toe ulcer, right, with 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) Expected: 04/08/2025 (Approximate), Expires: 04/08/2026[facility] Work Phone: Comment on above:Expected: 04/08/2025 (Approximate), Expires: 04/08/2026Start: 04-08-2025 End: 17-13-1996Ncenydo encounter pakfqbzpc61/12/2025 11:30 AM EDT Office Visit [facility] [place] [facility] [address] [facility] [address] [place] [phone] Zoë King PA [address] [facility] [address] [place] [address] ArrivedNOVT [place] Dickey [facility] HospitalnceComment on above:ArrivedStart: 03-14-2025 End: 32-35-4526Ykruxau encounter procedureRiDoctors Hospital Peripheral Vascular LabStart: 91-80-3507FrouizmvsSumma Health Wadsworth - Rittman Medical Centertart: 90-31-2172OumfmgajkSumma Health Wadsworth - Rittman Medical Centertart: 01-09-2025 End: 51-33-0488Elutqwat identified in Urine by CultureUrine culture (clean catch) Microbiology Routine Dysuria Expected: 01/09/2025 (Approximate), Expires: 01/09/2026[facility] HealthcareComment on above:Expected: 01/09/2025 (Approximate), Expires: 01/09/2026Start: 01-09-2025 End: 16-93-0715Tuirlyos specific Ag [Mass/volume] in Serum or PlasmaPSA Lab Routine History of prostate cancer Expected: 01/09/2025 (Approximate), Expires: 01/09/2026[facility] Work Phone: Comment on above:Expected: 01/09/2025 (Approximate), Expires: 01/09/2026Start: 01-09-2025 End: 13-62-6101Dkfffas encounter sduskzaiy05/15/2025 10:30 AM EDT Office Visit [facility] [address] [place] [address] Bhaskar Wilson NP [address] [place] [address] ArrivedNOMS CI FMComment on above:ArrivedStart: 11-04-2024 End: 48-75-7818Elexnjm encounter /10/2025 10:45 AM EDT Office Visit [facility] [address] [place] [address] Flash Lovelace MD [address] [place] [address] N[facility]S CI FMStart: 08-12-2024 End: 17-23-3243Lcijlxd encounter /16/2024 1:30 PM EST Office Visit [facility] [address] [place] [address] Flash Lovelace MD [address] [place] [address] NOMS CI FMStart: 07-29-2024 End: 17-37-6572Iosegig encounter dxquxlrlp65/02/2024 10:00 AM EST Office Visit [facility] [address] [place] [address] Flash Lovelace MD [address] [place] [address] NOMS CI FMStart: 99-46-0248Vpibanf and physical examination, annual for health maintenanceHospital Corporation Of America VisitOhioHealthStart: 10-10-2024Medicare Annual Wellness (AWV)Medicare Annual Wellness (AWV)[facility] HealthcareStart: 10-10-2024Medicare Wellness VisitMedicare Wellness VisitOhioHealthStart: 05-21-2024 End: 79-70-7613Xksshed encounter qusdpguwq36/24/2024 1:00 PM EDT Office Visit [facility] [address] [place] [address] Zoë King PA [address] [place] [address] ArrivedNOMS CI FMComment on above:ArrivedStart: 11-24-0210GNAQI-19 Vaccine ( season)COVID-19 Vaccine ( season)[facility] DakotaHealthStart: 77-54-8909Mbcdtyabn vaccinationInfluenza Vaccine (#1) [facility] HealthcareStart: 04-26-2024 End: 78-30-2822Wvorxbz encounter rackghnaa39/30/2024 9:30 AM EDT Office Visit [facility] [address] [facility] [address] [place] [address] Zoë King PA [address] [facility] [address] [place] [address] ArrivedNOMS CI FMComment on above:ArrivedStart: 16-83-8570TzfbevhudSumma Health Wadsworth - Rittman Medical Centertart: 08-09-2023 End: 23-42-9881Hfvflec encounter procedureRiverside Worship Cardiac Non- Invasive LabStart: 07-13-2023 End: 93-34-1776Nuxmszj encounter gtanuwhmd29/16/2023 Office Visit Orthopaedics Scar Ortega, VP [employer]-HEALTHCARE OR MEDICAL [address] [facility] [place] [address] [facility] OrthopedicsStart: 05-16-2023 End: 36-07-5291Jwrdwgejor ankle / brachial indices extremity completeUltrasound ankle / brachial indices extremity complete Vascular Ultrasound Routine PAD (peripheral artery disease) ([facility]) Expected: 05/16/2023, Expires: 07/15/2024 [facility] Work Phone: Comment on above:Expected: 05/16/2023, Expires: 07/15/2024Start: 05-16-2023 End: 69-16-9772CE Duplex Bypass Graft Left LEUS Duplex Bypass Graft Left LE Vascular Ultrasound Routine PAD (peripheral artery disease) ([facility]) Expected: 05/16/2023, Expires: 11/18/2024OhioHealthComment on above:Expected: 05/16/2023, Expires: 07/15/2024Start: 54-85-2887NQXQX-19 Vaccine ( season)COVID- 19 Vaccine ( season)OhioHealthStart: 58-78-7422BIOVD-19 VACCINE ( season)COVID-19 VACCINE ( season)[facility] Centertart: 90-25-0884Dppncdxos vaccinationSequential Influenza Vaccine (#1)OhioHealthStart: 03-02-6782Xbunmz Wellness Visit (AWV)Annual Wellness Visit (AWV)[facility]ITALOTStart: 07-14-2022 End: 03-96-7160Okllbvy encounter buofsutcg44/17/2022 Office Visit Orthopaedics Scar Ortega, VP [employer]-HEALTHCARE OR MEDICAL [address] [place] [address] [facility] OrthopedicsStart: 05-25-2022 End: 06-08-8574Zusufeh artery doppler assessmentCarotid Duplex Vascular Ultrasound Routine Bilateral carotid artery stenosis Expected: 05/25/2022, E xpires: 07/25/2023[facility] Work Phone: Comment on above:Expected: 05/25/2022, Expires: 07/25/2023Start: 05-23-2022 End: 96-99-9277Xlgtjnl encounter erxhxngib32/26/2022 Office Visit Pulmonology Angela Guerra MD [address] [place], [place] [address]arleth Best [address] [address] [facility] Pulmonary PhysiciansStart: 05-11-2022 End: 88-07-9068QQ of chest without contrastCT Chest Without Contrast Imaging Routine Pulmonary nodule Expected: 05/11/2022, Expires: 02/25/2023[facility] Work Phone: Comment on above:Expected: 05/11/2022, Expires: 02/25/2023Start: 05-11-2022 End: 76-98-2337Evctvkv encounter ndorontvc37/14/2022 Appointment Radiology Angela Guerra MD [address] [place], [place] [address]arleth Lopez [address] [place] [address] [facility] [address] ScanStart: 82-08-1908Xvyyblpel vaccinationSequential Influenza Vaccine (#1)OhioHealthStart: 26-68-7645HckqxbrpsW[facility]oster [facility] Hospital Work Phone: Start: 01-19-2022 End: 39-01-7181Htdougg encounter procedureRiDoctors Hospital Peripheral Vascular LabStart: 01-12-2022 End: 19-90-3562Ixbzliy encounter zfyrqrxin69/18/2022 Office Visit Orthopaedics Dashawn Silvestre MD [address] [place] [address] [facility] OrthopedicsStart: 11-29-2021 End: 00-57-3804mbiyyxqkcr13/04/2022 Rehab Services Visit Physical Therapy Dashawn Silvestre MD [address] [place] [address] Andree Cronin, PT [address] [facility] [place], [place] [address]Dnpem Therapy and Sport Medicine BucyrusStart: 17-61-9538EHKPC-19 Vaccine (4 - Booster for Moderna series)COVID-19 Vaccine (4 - Booster for Moderna series)[facility] Start: 11-86-3361MGSCY-19 Vaccine (4 - Moderna series)COVID-19 Vaccine (4 - Moderna series)[facility]HealthStart: 26-03-0259Thdzefs and physical examination, annual for health maintenanceHospital Corporation Of America VisitOhioHealthStart: 09-50-0608Hrcwyzqoh vaccinationSequential Influenza Vaccine (#1)[facility]HealthStart: 04-06-2021 End: 72-74-6204Tptetud artery doppler assessmentCarotid Duplex Vascular Ultrasound Routine Bilateral carotid artery stenosis Expected: 04/06/2021, E xpires: 2OhioHealthComment on above:Expected: 04/06/2021, Expires: 06/06/2022tart: 04-06-2021 End: 94-41-1610Naqfttfkii ankle / brachial indices extremity completeUltrasound ankle / brachial indices extremity complete Vascular Ultrasound Routine PAD (peripheral artery disease) ([facility]) Expected: 04/06/2021, Expires: 06/06/2022 OhioHealthComment on above:Expected: 04/06/2021, Expires: 06/06/2022tart: 04-06-2021 End: 20-36-8095Qkwvccpwnz duplex arterial leg leftUltrasound duplex arterial leg left Vascular Ultrasound Routine PAD (peripheral artery disease) ([facility]) Expected: 04/06/2021, Expires: 06/06/2022hioHealthComment on above:Expected: 04/06/2021, Expires: 06/06/2022tart: 28-11-8617GZJLV-19 VACCINE (3 - Booster for Moderna series)COVID-19 VACCINE (3 - Booster for Moderna series)[facility] SystemStart: 82-93-9606JTKVI-19 Vaccine (3 - Booster for Moderna series)COVID- 19 Vaccine (3 - Booster for Moderna series)OhioHealthStart: 84-39-7383Qvexojp and physical examination, annual for [facility] VisitNhioHealth Start: 40-94-3980Wayskirye vaccination givenSequential Influenza Vaccine (#1) OhioHealthStart: 10-21-2019 End: 52-07-6668Eiehzxrjysj32/24/2020 Appointment Radiology Mohsen Sarabia MD [address] [facility] Centermar[facility] [address] [address] [phone] [facility] CTStart: 59-88-4206Lifbvdwvv vaccination given SEQUENTIAL INFLUENZA VACCINE (#1)OhioHealthStart: 03-18-2019 End: 57-39-8873Gqgwcaqhtpi10/22/2019 Appointment Cardiology Mohsen Sarabia MD [address] [address] [phone] [facility] Peripheral Vascular LabStart: 11-01-2018 End: 46-69-0917BbfatvukcvhRynjqurqq [facility] LabStart: 10-31-2018 End: 59-20-6286WlydzfkwexgKtppfhaud [facility] LabStart: 10-25-2018 End: 74-12-5445Jamadu Visit10/25/2018 Office Visit Wound Care Flynn Mann DPM [address] [place], [place] [phone] [facility] Wound CareStart: 10-10-2018 End: 57-91-0671Nhzprl-Up10/10/2018 Follow-Up Cardiothoracic Surgery Mohsen Sarabia MD [address] [address] [phone] [facility] Heart, Lung & Vascular SurgeonsStart: 10-04-2018 End: 51-05-8706Aqdipz Visit10/04/2018 Office Visit Wound Care Flynn Mann DPM [address], [place] [phone] [facility] Wound CareStart: 10-03-2018 End: 68-49-7235Lpxqea-Up10/03/2018 Follow-Up Cardiothoracic Surgery Mohsen Sarabia MD [address] [address] [phone] [facility] Heart, Lung & Vascular SurgeonsStart: 09-20-2018 End: 22-11-6962Zbkpqc Visit09/20/2018 Office Visit Wound Care Flynn Mann DPM [address] [place], [place] [phone] [facility] Wound CareStart: 82-16-2306Wozymqwjx vaccination givenSEQUENTIAL INFLUENZA VACCINE (#1)[facility]: 05-18-2016 Pneumococcal vaccinationPNEUMOCOCCAL VACCINE AGE 65+ (2 of 2 - PPSV23)[facility] Start: 32-31-0107Clxdefaplxnr Vaccine: Age 50+ (2 of 2 - PPSV23)Pneumococcal Vaccine: Age 50+ (2 of 2 - PPSV23)[facility]Start: 55-31-0808Avxtsgbpdxqr Vaccine: Age 50+ (2 of 2 - PPSV23, PCV20, or PCV21)Pneumococcal Vaccine: Age 50+ (2 of 2 - PPSV23, PCV20, or PCV21)[facility]: 17-70-9345Evfgkfxereak Vaccine: Age 65+ (1 of 2 - PPSV23)Pneumococcal Vaccine: Age 65+ (1 of 2 - PPSV23)[facility]Start: 71-09-5043Qcjodjsdwjhn Vaccine: Age 65+ (2 - PPSV23 or PCV20)Pneumococcal Vaccine: Age 65+ (2 - PPSV23 or PCV20)[facility]Start: 49-83-9368Ritpdqfpfnyg Vaccine: Age 65+ (2 of 2 - PPSV23 or PCV20)Pneumococcal Vaccine: Age 65+ (2 of 2 - PPSV23 or PCV20)[facility]Start: 07-13-2015 Pneumococcal Vaccine: Age 65+ (2 of 2 - PPSV23)Pneumococcal Vaccine: Age 65+ (2 of 2 - PPSV23)[facility]Start: 28-27-6086Jrufysnexog Syncytial Virus Immunization: Risk, 60-74 Risk, or 75+ (1 - 1-dose 75+ series) Respiratory Syncytial Virus Immunization: Risk, 60-74 Risk, or 75+ (1 - 1-dose 75+ series)[facility]Start: 26-70-7194MTG VACCINE (1 - 1-dose 75+ series)RSV VACCINE (1 - 1-dose 75+ series)[facility] Hospitaltart: 22-25-4268Vaqg risk assessmentOhioHealthStart: 68-89-5937Yyukyijyjwiu vaccinationSumma Health [facility] SystemStart: 48-92-8756Auvtrxuffrcpxt of herpes zoster vaccineZOSTER VACCINES (1 of 2)[facility]Start: 83-85-9512Vbaebztx vaccine (1 of 2)Shingles vaccine (1 of 2)WYANDOTStart: 77-30-9550Wajdqf vaccine hzv live for subcutaneous useZOSTER (SHINGLES) VACCINE (1 of 2)[facility] Centertart: 12-29-3990LocgebvskkbUJOOFVRBRY CANCER SCREENING DISCUSSIONPremier Health At[facility] Start: 08-17-1916Ehirpwyfq for malignant neoplasm of colonCOLORECTAL CANCER SCREENING DISCUSSIONSouthwest General Health Centertart: 08-69-3830Zxyzn diphtheria, tetanus and acellular pertussis (DTaP) vaccinationTDAP (ADULT)[facility] Centertart: 72-26-0581Yfuirkl vaccinationTETANUSATriHealthtart: 35-22-4868Crgikmdqpu depression screening assessmentDepression Screening (PHQ9) [facility] HospitalStart: 04-40-0102GNVLH-19 Vaccine (1)COVID-19 Vaccine (1)[facility] Start: 94-18-6507Vadaclgzfm ScreenDepression ScreenWYANDOTStart: 1952 Depression screening using PHQ-9 (Patient Health Questionnaire 9) score [facility] HospitalStart: 27-37-2392Vlcqi panelLipidsWYANDOTStart: 31-97-9531Vtskjphvnryr vaccinationPNEUMOCOCCAL VACCINE SERIES (1 - PCV)[facility] Centertart: 00-80-9476Mevywew and physical examination, annual for health maintenance Wellness VisitOhioHealthStart: 36-99-1160GYPZM-19 VACCINE (#1)COVID-19 VACCINE (#1)[facility] Centertart: 14-25-2837Rsnd risk assessmentFalls Risk AssessmentOhioHealthStart: 62-19-4223Kessrnn vaccinationOhioHealthBacteria identified in Blood by CultureBlood Culture Aerobic/Anaerobic Microbiology Routine 01/18/2022 9:05 PM EDTOhioHealth Work Phone: End: 67-72-4445HG of chest without contrastCT Chest Without Contrast Imaging Routine Community acquired pneumonia of left lower lobe of lung 1Occurrences starting 11/08/2022 until 01/08/2023[facility] Work Phone: Comment on above:1 Occurrences starting 11/08/2022 until 01/08/2023Iron binding capacity [Mass/volume] in Serum or PlasmaFlower HospitalPatient EducationWestern Reserve Hospital Ctr Work Phone: Patient referralWestern Reserve Hospital Ctr Work Phone: Respiratory pathogens DNA and RNA panel - Nasopharynx by OREN with non-probe detectionFlower HospitalReticulocytes [#/volume] in [facility] CenterReticulocytes/100 erythrocytes in [facility] Medical CenterTransfusion of red blood cellsTransfuse RBC STAT 09/11/2018 6:52 PM ESTOhioHealth End: 25-33-2527BuzxnmqgqfrnufiHGIR ANKLE BRACHIAL INDEX Imaging Routine One Time for 1 Occurrences starting 05/10/2025 until 05/10/2025[facility] Work Phone: Comment on above:One Time for 1 Occurrences starting 05/10/2025 until 05/10/2025 End: 78-24-8607P-ray of left ankleXR Ankle Left 3+ Views (Standard) Routine Critical lower limb ischemia 1 Occurrences starting 09/20/2018 until 09/20/2019 [facility]HealthComment on above:1 Occurrences starting 09/20/2018 until 09/20/2019X- ray of left ankleXR Ankle Left 3+ Views (Standard) Routine Critical lower limb ischemia 09/20/2018 3:30 PM ESTOhioHealth End: 60-23-0096T-ray of left footXR Foot Left 3+ Views [...] prosthetic joint, subsequent encounter 11/24/2021 9:21 AM EDTACAVI [facility] SystemXR Pelvis and Hip - right ViewsXR HIP WITH PELVIS RIGHT Imaging Routine Hx of total hip arthroplasty, right 01/12/2022 8:59 AM EDTACitizensideta Health SystemXR Pelvis and Hip - right ViewsXR HIP WITH PELVIS RIGHT Imaging Routine Hx of total hip arthroplasty, right 07/14/2022 10:44 AM [facility] Pel[facility] - right ViewsXR HIP WITH PELVIS RIGHT Imaging Routine Hx of total hip arthroplasty, right 08/10/2023 10:49 AM [facility] Immunizations Immunization DateImmunizationNotesCare YmdasdjdSpqexbci87-52-8721qcdjprjau, high dose seasonal, preservative-freeFlash Lovelace MD Work Phone: NOMissouri Rehabilitation CenterZjivhrdvdo23-34-2921Hnlzaehoz, High-dose Seasonal, Quadrivalent, Preservative FreeFlash Lovelace MD Work Phone: NOMissouri Rehabilitation CenterXitnijryer23-02-8562iyevbhead virus vaccine, unspecified formulationLudivina Garcia XRLcnhKilqan85-94-0366zxxxkpczp virus vaccine, unspecified formulationJENNIFER JAY [facility]10-10-2023Influenza, High-dose Seasonal, Quadrivalent, Preservative Free Zoë Hemmer PA Work Phone: [facility] CenterIuvkimqxap16-54-4748wlltfngrg virus vaccine, unspecified formulationJENNIFER JAY [facility]10-04-2022Influenza, High-dose Seasonal, Quadrivalent, Preservative Free Zoë Hemmer PA Work Phone: [facility] CenterRmodputxys74-01-6947UHDJ-PzG-2 (COVID-19) mRNA 1273 vaccineJENNIFER JAY [facility]10-25-2021influenza virus vaccine, unspecified formulationJENNIFER JAY [facility]10-25-2021influenza, high dose seasonal, preservative-freeKaren Hemmer PA Work Phone: [facility] CenterAuwulnwyra36-12-5421MKSU-BvV-5 (COVID-19) mRNA- 1273 vaccineJENNIFER JAY [facility]02-11-2021pneumococcal polysaccharide vaccine, 23 valentJENNIFER JAY [facility]02-03-2021SARS-CoV-2 (COVID-19) mRNA-4963 vaccineJENNIFER JAY [facility] SouthComment on above:Result Comment: 2023-12-26: YFD9553-18-9082heexxceuk virus vaccine, unspecified formulationJENNIFER JAY [facility]10-06-2020influenza, high dose seasonal, preservative-freeCopper Springs Hospitalen Hemmer PA Work Phone: [facility] CenterFikvdbyzsg23-88-7384swjyoezsb virus vaccine, unspecified formulationJENNIFER JAY [facility]10-01-2020influenza, seasonal, injectableKaren Hemmer PA Work Phone: [facility] CenterRzrucdkbjb83-91-9460wkvjxziqjtae conjugate vaccine, 13 valentJENNIFER JAY [facility]02-03-2020tetanus toxoid, reduced diphtheria toxoid, and acellular pertussis vaccine, adsorbedJENNIFER JAY [facility]10-22-2019influenza virus vaccine, unspecified formulationJENNIFER JAY [facility]10-22-2019Seasonal trivalent influenza vaccine, adjuvanted, preservative freeMercy Memorial HospitalCtbexzJiwyPjwmff86-08-2475pzhoavexk virus vaccine, unspecified formulationJENNIFER JAY [facility]10-10-2018influenza, high dose seasonal, preservative-freeCleveland ClinicEbmeKiwdmb53-40-6450Wtjzxtnvk, High-dose Seasonal, Quadrivalent, Preservative FreeZoë BROWER Work Phone: [facility] CenterFnpchulwxn31-33-2374rxueovdhc virus vaccine, unspecified formulationJENNCHRIS JAY [facility]09-25-2017influenza, injectable, quadrivalent, contains preservativeMercy Memorial HospitalMljgseBhyiVrlcen67-79-6269yrskzdabi, injectable, quadrivalent, preservative free Zoë BROWER Work Phone: [facility] CenterNnrddxennx64-64-2963ortehxuga virus vaccine, unspecified formulationJENNIFER JAY [facility]09-21-2015influenza, high dose seasonal, preservative-freeCleveland ClinicEnndFkmodj37-20-6843zvcbiilxfndu conjugate vaccine, 13 valentJoy Cornell [facility] Hospitalpneumococcal vaccine, unspecified formulationMohsen Sarabia MD Work Phone: [facility] Hospitalpneumococcal vaccine, unspecified formulationUri Voss DO Work Phone: [facility] Payers DatePayer CategoryPayerPolicy [id number] 2024Self-pay [id number] Health [id number] 2018MedicareHUMANA MANAGED MEDICARE HUMANA MCR ADVANTAGE CHOICE PPO xxxxxxxxx 2017-Presentxxxxxxxxx [id number] 2018MedicareHUMANA MANAGED MEDICARE HUMANA MCR ADVANTAGE CHOICE PPO [id number] 2017-[id number] 2018Medicare [id number] 2018Medicare (Managed Care) [id number] 2018Medicare PPO [id number] [id number] 2.0.1.299329.3.57[id number] 2.0.1.703299.3.57[id number] 2.0.1.097623.3.57[id number] 2.840.1.958777.3.579.[id number] 2.0.1.711525.3.579.2.43127-87-8591Mpxrwip6556126 2.16840.1.405562.3.579.2.29512-83-5875Nciwpkt9997777 2.16840.1.268910.3.579.2.18940-72-2587Ervanvu9770037 2.16840.1.541362.3.579.2.56927-01-5593Yohpwgo12466022 2.160.1.055514.3.579.2.88163-69-7648Aysyurs00346642 2.16.840.1.557535.3.579.[id number] 2.16.840.1.363688.3.579.2.77960-92-5531Uathmxr71191329 2.16.840.1.441140.3.579.2.52292-71-7642Hlbnerp064042866 2.16.840.1.356107.3.579.2.53493-12-1970Ivuodea566441410 2.16.840.1.047703.3.579.2.21216-92-4067Zzmktag243542294 2.16.840.1.550202.3.579.2.77466-84-0672Ylntbvi432062243 2.16.840.1.848245.3.579.2.18317-79-9931Rbognmi682195936 2.16.840.1.169934.3.579.2.71564-93-7064Rgepmac699794868 2.16.840.1.387294.3.579.2.89265-81-8409Gmbfzyt877673189 2.16.840.1.903384.3.579.2.51606-96-0254Twpyllw951296811 2.16.840.1.243800.3.579.2.2[id number] 2.16.840.1.913370.3.57[id number] 2.16.840.1.997863.3.579.2.12502-14-0766Jyqwjqd374739703 2.16.840.1.128847.3.579.2.96034-01-8750Wuqrwtv19587293 2.16.840.1.862348.3.579.2.891681-34-0957Nebyoep06673995 2..0.1.442793.3.579.2.625779-74-8722Zeongqa30887005 2.16.0.1.761740.3.579.2.244484-02-5111Ytigmcb06536762 2.0.1.271765.3.579.2.018269-34-9262Pbrudsd49983619 2.0.1.536159.3.579.2.037426-34-7211Skshcmq78782425 2.0.1.668239.3.579.2.947512-05-9255Vbbvakd76834247 2.0.1.142513.3.579.2.473446-90-5800Gzrsapo6473610 2.0.1.375473.3.579.2.996823-41-5523Yhmslgr7064444 2.0.1.024736.3.579.2.672368-40-3123Ctaijnc0192969 2.0.1.694121.3.579.2.1259UnknownHCAP/HFA/FAP FlgazwN854058 4373731a-0xp6-53s2-f78u-4c81ji7kd2u0Hdyjzvv19023606 2.0.1.571837.3.579.2.500Gdzezqc36930080 2.0.1.406821.3.579.2.531 Dqgytaf11956818 2.840.1.211413.3.579.2.924Rxadcnk38709442 2.0.1.127520.3.579.2.531 Social History DateTypeDetailFacilityStart: 09-10-2018 End: 86-15-5552Rxorguj smoking status NHISNever smokerSouthwest General Health Centertart: 15-17-3324Xav Assigned At BirthNot on fileOhioHealthStart: 10-09-2019 End: 64-53-6512Kvaxzwt intakeEx-drinker (finding)[facility]HealthStart: 10-21-2019 End: Qgmbcpl use and exposureNever usedOhioHealthStart: 11-24-2021 End: 06-90-6999Fudjwyg intakeCurrent non-drinker of alcohol (finding)[facility]ertart: 12-11-2021 End: 08-28-7414Qbnksbru to SARS-CoV-2 (event)Not sureOhioHealthStart: 09-04-2018 End: 97-28-3307Fqunmrymd pack-yearsOhioHealthStart: 11-30-2022 End: 05-54-2409Uge [facility] Hospitaltart: 78-90-0837Uqr Assigned At [facility]ustart: 87-94-5167Tfgxyan smoking statusNeverThe Christ Hospitaltart: 58-34-0298Llwyad identityIdentifies as male gender (finding)[facility]HealthStart: 70-53-0727Otgscg orientationHeterosexual (finding)[facility]HealthStart: 04-15-2023 Alcohol CommentCoffee 1-2 cups [...] NHISTobacco smoking consumption unknownWYANDOT Work Phone: start: 37-10-0364Ofvniqf SDOH Alcohol Frequency1 [facility] Work Phone: start: 37-78-7544Nljrvia SDOH Alcohol Std Drinks0 [facility] Work Phone: How often do you need to have someone help you when you read instructions, pamphlets, or other written material from your doctor or pharmacy [SILS][facility] HospitalStart: 44-90-1878XdoGwac (finding)[facility] Centertart: 05-06-2025 End: 78-35-8548XTZV Follow upSDOH Follow upWooster Community Hospital Work Phone: Medical Equipment Procedure CodeEquipment CodeEquipment Original TextEquipment IdentifierDates Hemostat 2 X 4in Surgicel Fibrillar - [id number]: 01-43-6121Ibibtxyp 2 X 4in Surgicel Fibrillar - [id number]: 67-55-9433Khpszmah 2 X 4in Surgicel Fibrillar - [id number]: 54-36-3800Ioiwmwqm 2 X 4in Surgicel Fibrillar - [id number]: 76-45-0313Fcyrmkja 2 X 4in Surgicel Fibrillar - [id number] Start: 58-06-6137Aezicecz 2 X 4in Surgicel Fibrillar - [id number]: 74-02-6552Pptpafbw 2 X 4in Surgicel Fibrillar - [id number]: 09-07-2018 Hemostat 2 X 4in Surgicel Fibrillar - [id number]: 15-42-3597Ogggkggj 2 X 4in Surgicel Fibrillar - [id number]: 55-61-1643Slasyapa 2 X 4in Surgicel Fibrillar - [id number]: 86-27-9500Vuxhmswr 2 X 4in Surgicel Fibrillar - [id number]: 56-15-1037Fzpoizne 2 X 4in Surgicel Fibrillar - [id number] Start: 79-69-2955Epvjgvfg 2 X 4in Surgicel Fibrillar - [id number]: 30-33-6123Mccjeoxc 2 X 4in Surgicel Fibrillar - [id number]_ddcXoyzn: 01-25-7061Kfwxnylk 2 X 4in Surgicel Fibrillar - [id number]: 09-07-2018 Hemostat 2 X 4in Surgicel Fibrillar - [id number]: 25-26-0503Dlpbrhnf 2 X 4in Surgicel Fibrillar - [id number]: 50-93-7558Acdkccwj 2 X 4in Surgicel Fibrillar - [id number]: 87-23-4885Fnligjqo Altrx Polyethylene Acetabular Liner Neutral 36mm Id 62mm [id number]_gjrKlakn: 97-82-7755Fahmm-Seal 6f Vip - [id number]()[id number]()[id number](10)[id number], [id number]_imp FDAStart: 26-27-6635Nvdmxcu Lv 1x40 Single - [id number]_ysqKjkot: 60-89-6683Dcacllaa 2 X 4in Surgicel Fibrillar - [id number]_ltxYphqj: 28-75-0151Ligtqqv 10ml Hemostatic Matrix Fast Prep Floseal W/Recothrom - [id number] ()[id number]()[id number](10)[id number], [id number]_imp FDAStart: 03-17-2025 [place] Gription Acetabular Shell Sector 62mm [id number]_liyZizlw: 07-15-2021 Biolox Delta Ceramic Femoral Head +1.5 36mm Jaki 08/10 Pnowy494292_psfUjwfz: 90-47-0232Endjaa Femoral Stem 08/10 Taper Size 7 Mi 133mm920454_impStart: 79-21-3662Icemhrzwdtsyg Stem Centralizer 12.0mm Fyvzvrdi389908_wrbJxoht: 66-87-2968Scfll Flex 7u775y985 - [id number] ()[id number]()[id number](10)[id number], 559778_imp FDAStart: 54-84-6812Ybtqd Flex 3t721n512 - [id number]()[id number]()[id number](10)17280, [id number]_imp FDA Start: 79-58-3465Pskeujm R 1 X 40 Us - [id number]_wqaVngkf: 07-15-2021 Goals DatePatient GoalDesired Activity/StateComment on above: [...] to promote return to PLOF. Functional Status DrbbObfanywasmYjbspvFbrywlua94-24-0516Lhesyhh Health Questionnaire 2 item (PHQ- 2) [Reported][facility] CenterNpswmiphod32-18-3864Mrsocwe Health Questionnaire 2 item (PHQ- 2) [Reported][facility] CenterVxwxlrbbam26-05-5027Rxv you deaf, or do you have serious difficulty hearingNo 05/09/2025 11:00 AM EDT Lexi Renee RN [facility]09-12-2025Are you blind, or do you have serious difficulty seeing, even when wearing glassesNo 05/09/2025 11:00 AM Lexi Beverly RN [facility]09-12-2025Do you have serious difficulty walking or climbing stairsNo 05/09/2025 11:00 AM Lexi Beverly RN [facility]09-12-2025Do you have difficulty dressing or bathingNo 05/09/2025 11:00 AM Lexi Beverly RN [facility]09-12-2025 Because of a physical, mental, or emotional condition, do you have difficulty doing errands alone such as visiting a physician's office or shoppingNo 05/09/2025 11:00 AM [facility] 44-94-7186Hzrvvtgsnf statusPatient at BaselineWooster Community Hospital Work Phone: [phone] 131-181309716800-46-9036Zknyitn Health Questionnaire 2 item (PHQ-2) [Reported][facility] CenterRheyzaixdf85-57-3747Agychqr Health Questionnaire 2 item (PHQ-2) [Reported][facility] CenterXuvcklkkae72-31-1794Lqsadxv Health Questionnaire 2 item (PHQ-2) [Reported][facility] CenterYijjdsqdjh92-52-7115Txifhfa Health Questionnaire 2 item (PHQ-2) [Reported][facility] CenterEkwlxsurqa06-62-5282Crpibxb Health Questionnaire 2 item (PHQ-2) [Reported][facility] CenterZjhgdfnyva01-09-7888Fycoqkgoii StatusN/AExec[facility]04-25-2023Functional StatusN/AExec[facility] Mental Status DbgfKilrlxbpvtXtowadHfocbelk53-46-1052Nccfcbt of a physical, mental, or emotional condition, do you have serious difficulty concentrating, remembering, or making decisionsNo 05/09/2025 11:00 AM EDT Lexi Renee, VAN [facility]09-05-2025Cognitive functionCognitive Status Patient at BaselineW[facility] Work Phone: Clinical Notes 11-24-2021 to 06-10-2025 Note Date & YyrsKkigJwooszbi01-78-4856 History of Present illness Narrative* Flash Lovelace [...] (Tessalon) 100 MG capsule Three times daily Vknsgen-Sttyjioifqw-Xamtukenlr (Breztri Aerosphere) 160-9-4.8 MCG/ACT aerosol Inhale 1 [...] Do you have a medical power of assistant county attorney?: Yes Objective : BP 132/68 Pulse [...] Orders Flu vaccine, high dose seasonal, PF (CVI064) (Fluzone High Dose) (Completed) Orders Placed This Encounter Procedures Flu vaccine, high dose seasonal, PF (QIC460) (Fluzone High Dose) Lipid panel Standing Status: [...] to screen for Anuerysm documented in this encounterKansas City VA Medical CenterIjnliszbvz19-85-4176 Telephone encounter Note* Telephone Encounter - Megan Douglass - 05/29/2025 10:32 AM EDT Patient called and left a message stating that he needs his pain medication called into the pharmacy - specifically he said the 5-325 but I'm not seeing that on his med list. Please advise [facility] CenterOznrblizyk75-99-3605 Miscellaneous Notes* Telephone Encounter - Megan Douglass - 05/29/2025 10:32 AM EDT Patient called and left a message stating that he needs his pain medication called into the pharmacy - specifically he said the 5-325 but I'm not seeing that on his med list. Please advise documented in this encounterKansas City VA Medical CenterJtndtfhvay07-62-6777 History of Present illness Narrative* Elaine Saab [...] concerns at this time. documented in this encounterKansas City VA Medical CenterPjeoopdaew77-06-0282 History of Present illness Narrative* Flash Lovelace [...] Flowsheet Row Patient Outreach from 05/14/2025 in [facility] with Elaine Saab LPN Hospital Information ED, Hospital or Mcc Facility Discharge? Hospital Patient has been contacted within two business days of discharge Yes Diagnosis Hemoptysis Discharge Date 05/13/25 Discharged To: Home Setting Discharge Hospital [facility] [[facility]] Engagement Call Start Time 1109 Admission [...] Avascular necrosis of bone of hip ([facility]) 09/04/2011 Right hip Right hip CAD (coronary artery disease) 2013 Carotid artery disease Cataract 2014 Cellulitis 01/19/2022 [facility] Cellulitis LLE Colon polyps 2012 Critical lower limb ischemia ([facility]) 09/04/2018 Last Assessment & Plan: Pt s/p LLE angiogram with Dr Hahn who feels that the pt has no further endovascular options. He has consulted Dr. Sarabia for a possible tibial bypass. Pt s/p LLE critical limb ischemia Deann class 4 rest pain with distal discoloration to histoes Gangrene of left foot ([facility]) 10/04/2018 Groin hematoma 2014 RT Femoral groin Hematoma H/O myocardial perfusion scan 07/09/2019 LVEF 56% Myocardial perfusion imaging shows a defect in Apical wall Herpes zoster 09/04/2011 History of being hospitalized 12/06/2020 Strep Pneumonia, Resp. Failure - [facility] History of being hospitalized [place] - [facility] 07/15/2021-07/16/2021 History of coronary angiogram [...] SOB (shortness of breath) Unstable angina ([facility]) 2013 XR 06/18/2019 XR shows impingement to [...] incomplete bowel prep Diverticulosis Dr. Rowe at [facility] COLONOSCOPY W/ POLYPECTOMY 2011 CORONARY ARTERY [...] HISTORY 04/25/[address] Hahn [place] MEDICATION MANAGEMENT 11/2020 Multi resistant Strep Pneumonia, [...] mouth with water after use Relevant Medications Fiinqiv-Lwrwnlklmdq-Wdceapjofg (Mesa Air Groupphere) 160-9-4.8 MCG/ACT aerosol No follow-ups on file. documented in this encounterKansas City VA Medical CenterCctjafxokj15-64-1494 History of Present illness Narrative* Elaine Saab [...] Flowsheet Row Patient Outreach from 05/14/2025 in [facility] with Elaine Saab LPN Hospital Information ED, Hospital or [facility] Facility Discharge? Hospital Patient has been contacted within two business days of discharge Yes Diagnosis Hemoptysis Discharge Date 05/13/25 Discharged To: Home Setting Discharge Hospital [facility] [[facility] Engagement Call Start Time 1109 Admission [...] AM EDT Refill sent. documented in this encounterKansas City VA Medical [id number] Hospital course Narrative * Rafaela Garcia MD [...] during his recent hospital stay at [facility]. As you may know, Mr. Powell is [...] patient's records can be obtained via [facility] [facility] at [email or web address] It has been my pleasure participating in [...] Patient Instructions on Discharge No future appointments. [place] [address] Flash Lovelace MD [address] [place] [address] Schedule an appointment as soon as possible [...] Your Medications These medications were sent to [facility] [id number] [place] [address] - [address] [facility] [address]) [address] [facility] [address] predniSONE 10 MG TABS [facility] Narrative* Rafaela Garcia MD [...] during his recent hospital stay at [facility]. As you may know, Mr. Powell is [...] patient's records can be obtained via [facility] [employer] at [email or web address] It has been my pleasure participating in [...] Patient Instructions on Discharge No future appointments. [address] [address] Flash Lovelace MD [address] [place] [address] Schedule an appointment as soon as possible [...] Your Medications These medications were sent to [facility] [id number] [place] [address] - [address] [facility] [address] ([address]) [address] [facility] [address] predniSONE 10 MG TABS [facility] History of Present illness Narrative* Andreea Carpenter RCP - 05/13/2025 9:54 AM EDT Final Discharge Planning CM met with patient at bedside and patient was agreeable to [facility] and using [facility]. Final Discharge Planning Discharge Disposition: Home with Home Health Selected Continued Care - Admitted Since 05/09/2025 Home Medical Care Coordination complete. Service Provider Services Address Phone Fax Patient Preferred [facility] Home Rehabilitation [address] [place] [phone] -- Community Agency Name(s) For Handoff: [facility] [employer] Phone For Handoff: [phone] Fax For Handoff: [phone] Plan Plan: Patient will discharge home with [facility]. Patient/Family In Agreement With Plan: yes Alejandra Grey (Teresa), MEETING FACILITATOR, [facility] Clinical Accounts Collector [facility] #[phone] * Sakshi Medina, SENIOR BIOINFORMATICS SPECIALIST - 05/13/2025 9:03 AM EDT Acute Physical [...] Assessment/Intervention: Transfer Assessment/Intervention: Sit to Stand Transfer [place] Level: Sit->Stand: supervision Assistive Device: Sit->Stand: front-wheeled walker Skilled Rationale: Verbal cues, Initiation and execution of task Skilled Intervention/Details: Sit->Stand: Pt tolerates x2 from EOB and x1 from chair without LOBwith use of UEs. Stand to Sit Transfer [place] Level: Stand->Sit: supervision Assistive Device: Stand->Sit: front-wheeled walker Skilled Rationale: Verbal cues, Initiation and execution of task Skilled Intervention/Details: Stand->Sit: x1 to bed and x2 to chair Gait/Functional Mobility Assessment/Intervention: Gait Assessment [place] Level: Gait: supervision Assistive Device: Gait: front-wheeled [...] control of AD Stairs Assessment/Intervention: Stairs Assessment [place] Level: Stair Negotiation: stand-by assist Assistive Device: Stair Negotiation: jonathan walker Number of stairs: 1 (x2) Stairs Skilled Rationale: verbal, general safety Skilled Intervention/Details - Stairs: Pt declines stair training initially but with encouragement he performs stepping up on a curb step x2 with vc for stepping up with R and down with left (backed down) Outcome Score(s): [facility] Basic Mobility Inpatient Short Form Turning [...] a railin - A Little Assistance [facility] Mobility Raw Score: 20 [facility] Mobility Functional Limitation: 35.83% Impaired in [...] call with questions. Beena Nguyen MD MPH [id number] * Rhonda Yoon, [facility] - 05/12/2025 3:00 PM EDT Images from [...] RBCURINE NEGATIVE 08/01/2018 BACTERIAURIN NEGATIVE 08/01/2018 Microbiology: [facility] 05/02/25 - RVP - rhinovirus 05/02/25 [...] ID ATTENDING: Dr Jeane APRN, MS, Adult RESIDENT CARE DIRECTOR-C Infectious Diseases Pager [phone] Cosigned by Fidel Nguyen MD, PhD at 05/12/2025 4:46 PM EDT Associated attestation - Fidel Nguyen MD, PhD - 05/12/2025 4:46 PM EDT ID Staff: I have interviewed and examined patient independently (05-12-25) and have discussed case with the ID RESIDENT CARE DIRECTOR. In addition, the chart, labs, micro, radiology, and vitals reviewed. I agree with thefindings and recommendations as documented above by Rhonda Yoon CNP which reflect our combined clinical decision making. Fidel Nguyen MD, PhD Division of Infectious Diseases [facility] * Rafaela Garcia MD - 05/12/2025 1:42 [...] Acute hypoxic resp failure - resolved At [facility] requiring o2. 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 Mobility Assessment/Intervention: Supine to Sit Mobility [place] Level: Supine->Sit: stand-by assist Bed Features/Set-up: Supine->Sit: Head of bed elevated, Use of bed rail Skilled Rationale: Verbal cues, Initiation and execution of task Skilled Intervention/Details: Supine->Sit: x1 to EOB Sit to Supine Mobility [place] Level: Sit->Supine: not tested Skilled Intervention/Details: Sit->Supine: pt in chair at end of session Transfer Assessment/Intervention: Sit to Stand Transfer [place] Level: Sit->Stand: contact guard assist Assistive Device: Sit->Stand: gait belt, front-wheeled walker Skilled Rationale: Verbal cues, Initiation and execution of task Skilled Intervention/Details: Sit->Stand: x2 from EOB and x1 from chair Stand to Sit Transfer [place] Level: Stand->Sit: contact guard assist Assistive Device: Stand->Sit: gait belt, front-wheeled walker, armed chair, rail Skilled Rationale: Verbal cues, Initiation and execution of task Skilled Intervention/Details: Stand->Sit: x1 to bed and x2 to chair with cues for safety Gait/Functional Mobility Assessment/Intervention: Gait Assessment [place] Level: Gait: contact guard assist Assistive Device: [...] turning with AD. Stairs Assessment/Intervention: Stairs Assessment [place] Level: Stair Negotiation: not tested Outcome Score(s): [facility] Basic Mobility Inpatient Short Form Turning [...] railin - A Lot of Assistance [facility] Mobility Raw Score: 18 [facility] Mobility Functional Limitation: 46.58% Impaired in [...] Acute hypoxic resp failure - resolved At [facility] requiring o2. 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 toe per recent MRI (see care everywhere) - appreciate wound and podiatry - He will discuss with his outpatient insurance agent on Monday what he wants to do [...] Signed, Rafaela Garcia MD * Yris Martinez, [facility] - 05/11/2025 12:48 PM EDT 05/11/25 [...] below: CT 05/06 Impression & Recommendations: Tristin Pwoell Sr. is a 85 y.o. male with [...] Critical Care Medicine Cosigned by BOLA Caceres [facility] at 05/11/2025 11:33 AM EDT Associated attestation - Carmel Rosales MB [facility] - 05/11/2025 11:33 AM EDT Pulmonary Attending [...] participate inMr. Powell's care. Carmel Rosales MD, [facility], ATSF [employer] Clinical Medicine Pulmonary and Critical Care Pager #[phone] Attending Physician 05/11/2025 11:33 AM * Monica Martin [facility] - 05/10/2025 6:34 PM EDT Department of Pharmacy Pharmacokinetics Progress Note Patient: [facility]istin Powell [facility] Assessment and Plan: Based upon drug level [...] further questions. Name: Monica Martin RPH Phone: [phone] Date/Time: 05/10/2025 6:35 PM * Rafaela Garcia [...] Acute hypoxic resp failure - resolved At [facility] requiring o2. 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 male with [...] Critical Care Medicine Cosigned by BOLA Caceres [facility] at 05/10/2025 1:05 PM EDT Associated attestation - Carmel Rosales MB [facility] - 05/10/2025 1:05 PM EDT Pulmonary Attending [...] participate inMr. Powell's care. Carmel Rosales MD, [facility], [facility] [employer] Of Clinical Medicine Pulmonary and Critical Care Pager #[phone] Attending Physician 05/10/2025 1:05 PM * Dexter Espinoza - 05/09/2025 1:05 PM EDT Department of Pharmacy Admission Medication Reconciliation Note Patient: Tristin Powell Room/Bed: [facility] I have reviewed the patient's home medication list with the following sources Patient recall with prompting, Patient recall without prompting, Dispense Report, and Pharmacy (Name [facility] ). I have also reviewed [...] further questions. Name: Dexter Espinoza Phone #: [phone] Date/Time: 05/09/2025 1:05 PM Time Spent: 45 minutes Cosigned by Sirena Carpenter RPH at 05/09/2025 1:45 PM EDT Associated attestation - Sirena Carpenter RPH - 05/09/2025 1:45 PM EDT Department of Pharmacy Admission Medication Reconciliation Note Patient: Tristin Powell Room/Bed: 08/A Updated SENIOR BIOINFORMATICS SPECIALIST Med List: Prior to Admission Medications Prescriptions [...] reviewed the home medication list with the [facility]. The home medication list status is: complete and home med list marked as reviewed . All changes to the home medication list have been updated in [facility]. Please feel free to contact me with any further questions. Name: Sirena Jim Carpenter [facility] Phone #: [phone] Date/Time: 05/09/2025 1:44 PM * Rafaela Garcia [...] Acute hypoxic resp failure - resolved At [facility] requiring o2. 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 : Yes Is the patient on Anticoagulation? : [facility] [id number] [place] [address] - [address] [facility] [address]) [address] [place] [phone] Living Environment and Support System Is the patient from a facility or retirement?: No Living Environment: House Patient Caregiving Responsibilities: [...] at home? 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 Denies [...] Intervention/Details: Pt dons soft boot (with non-slip heel packer) on L foot for mobility despite education [...] performance Mobility Assessment: Supine to Sit Mobility [place] Level: Supine->Sit: contact guard assist Bed Features/Set-up: Supine->Sit: Head of bed elevated, Use of bed rail Skilled Rationale: Positioning, Verbal cues, Initiation and execution of task Skilled Intervention/Details: Supine->Sit: x1 to EOB with increased time Sit to Supine Mobility [place] Level: Sit->Supine: stand-by assist Bed Features/Set-up: Sit->Supine: Head of bed elevated Skilled Rationale: Verbal cues, Initiation and execution of task Skilled Intervention/Details: Sit->Supine: x1 from EOB Transfer Assessment: Sit to Stand Transfer [place] Level: Sit->Stand: contact guard assist Assistive Device: Sit->Stand: gait belt Skilled Rationale: Verbal cues, Initiation and execution of task, Cues for increased safety Skilled Intervention/Details: Sit->Stand: x1 from EOB impulsively and requires cues for line management/safety Stand to Sit Transfer [place] Level: Stand->Sit: contact guard assist Assistive Device: Stand->Sit: gait belt Skilled Rationale: Verbal cues, Controlled descent for sitting, Technique of activity, Positioning Skilled Intervention/Details: Stand->Sit: x1 to EOB with cues for positioning Functional Mobility: Functional Mobility [place] Level: Functional Mobility/Gait: contact guard assist Assistive [...] currently uses wheelchair?: No Outcome Score(s): [facility] Daily Activity Inpatient Short Form Putting on/Taking Off Lower Body Clothin - A Little Assistance Bathin - A Little Assistance Toiletin - A Little Assistance Putting on/Taking Off Upper Body Clothin - A Little Assistance Groomin - A Little Assistance Eatin - No Assistance [facility] Activity Raw Score: 19 [facility] Activity Functional Limitation/Modifier: 42.80% Currently Impaired in Daily Activity- CK [facility] Basic Mobility Inpatient Short Form Turning [...] a railin - A Little Assistance [facility] Mobility Raw Score: 18 [facility] Mobility Functional Limitation: 46.58% Impaired in [...] APPROACH Right 07/15/2021 Laterality: Right; Surgeon: Dashawn Slivestre MD; Location: [facility] OR PERIPHERAL ANGIOPLASTY [...] Level of Function Details: Independent 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 Denies [...] intact Mobility Assessment: Supine to Sit Mobility [place] Level: Supine->Sit: contact guard assist Bed Features/Set-up: Supine->Sit: Head of bed elevated, Use of bed rail Skilled Rationale: Verbal cues, Initiation and execution of task Skilled Intervention/Details: Supine->Sit: Increased time to complete Sit to Supine Mobility [place] Level: Sit->Supine: stand-by assist Bed Features/Set-up: Sit->Supine: [...] room Transfer Assessment: Sit to Stand Transfer [place] Level: Sit->Stand: contact guard assist Assistive Device: Sit->Stand: gait belt Skilled Rationale: Verbal cues, Initiation and execution of task Skilled Intervention/Details: Sit->Stand: Pt impulsively stands from EOB w/ repeat cueing for line safety Stand to Sit Transfer [place] Level: Stand->Sit: contact guard assist Assistive Device: Stand->Sit: gait belt Skilled Rationale: Sequencing, Verbal cues, Hand placement, Controlled descent for sitting, Technique of activity, Initiation and execution of task, Cues for increased safety Skilled Intervention/Details: Stand->Sit: X1 EOB Gait/Functional Mobility: Gait Assessment [place] Level: Gait: contact guard assist Assistive Device: [...] currently uses wheelchair?: No Outcome Score(s): [facility] Basic Mobility Inpatient Short Form Turning [...] a railin - A Little Assistance [facility] Mobility Raw Score: 18 [facility] Mobility Functional Limitation: 46.58% Impaired in Basic Mobility Assessment & Plan: Patient was admitted for 85 y.o. male with a past medical history of CAD x7 stents, PAD s/ SFA-peroneal bypass 02/2025, left metatarsal amputation, chronic R foot ulcer, HTN, HDL, BPH who presents as a transfer from [facility] due to hemoptysis. and seen for therapy [...] Therapy Discharge Summary. [facility] History of Present illness Narrative* Andreea Carpenter RCP - 05/13/2025 9:54 AM EDT Final Discharge Planning CM met with patient at bedside and patient was agreeable to [facility] and [facility]. Final Discharge Planning Discharge Disposition: Home with Home Health Selected Continued Care - Admitted Since 05/09/2025 Home Medical Care Coordination complete. Service Provider Services Address Phone Fax Patient Preferred [facility] Home Rehabilitation [address] [place] [address] [phone] -- Community Agency Name(s) For Handoff: [facility] [employer] Phone For Handoff: [phone] Fax For Handoff: [phone] Plan Plan: Patient will discharge home with [facility]. Patient/Family In Agreement With Plan: yes Alejandra Grey (Teresa), MEETING FACILITATOR, [facility] Clinical Accounts Collector [facility] #[phone] * Sakshi Medina PTA - 05/13/2025 9:03 [...] Assessment/Intervention: Transfer Assessment/Intervention: Sit to Stand Transfer [place] Level: Sit->Stand: supervision Assistive Device: Sit->Stand: front-wheeled walker Skilled Rationale: Verbal cues, Initiation and execution of task Skilled Intervention/Details: Sit->Stand: Pt tolerates x2 from EOB and x1 from chair without LOBwith use of UEs. Stand to Sit Transfer [place] Level: Stand->Sit: supervision Assistive Device: Stand->Sit: front-wheeled walker Skilled Rationale: Verbal cues, Initiation and execution of task Skilled Intervention/Details: Stand->Sit: x1 to bed and x2 to chair Gait/Functional Mobility Assessment/Intervention: Gait Assessment [place] Level: Gait: supervision Assistive Device: Gait: front-wheeled [...] control of AD Stairs Assessment/Intervention: Stairs Assessment [place] Level: Stair Negotiation: stand-by assist Assistive Device: Stair Negotiation: jonathan walker Number of stairs: 1 (x2) Stairs Skilled Rationale: verbal, general safety Skilled Intervention/Details - Stairs: Pt declines stair training initially but with encouragement he performs stepping up on a curb step x2 with vc for stepping up with R and down with left (backed down) Outcome Score(s): [facility] Basic Mobility Inpatient Short Form Turning [...] a railin - A Little Assistance [facility] Mobility Raw Score: 20 [facility] Mobility Functional Limitation: 35.83% Impaired in [...] call with questions. Beena Nguyen MD MPH [phone] * Rhonda Yoon APRN-HEALTHCARE OR MEDICAL - 05/12/2025 3:00 PM EDT Images from [...] NEGATIVE 08/01/2018 BACTERIAURIN NEGATIVE 08/01/2018 Microbiology: [facility] 05/02/25 - RVP - rhinovirus 05/02/25 [...] ID ATTENDING: Dr Jeane APRN, MS, Adult RESIDENT CARE DIRECTOR-C Infectious Diseases Pager [phone] Cosigned by Fidel Nguyen MD, PhD at 05/12/2025 4:46 PM EDT Associated attestation - Fidel Nguyen MD, PhD - 05/12/2025 4:46 PM EDT ID Staff: I have interviewed and examined patient independently (05-12-25) and have discussed case with the ID RESIDENT CARE DIRECTOR. In addition, the chart, labs, micro, radiology, and vitals reviewed. I agree with thefindings and recommendations as documented above by Rhonda Yoon CNP which reflect our combined clinical decision making. Fidel Nguyen MD, PhD Division of Infectious Diseases [facility] * Rafaela Garcia MD - 05/12/2025 1:42 [...] Acute hypoxic resp failure - resolved At [facility] requiring o2. 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 Mobility Assessment/Intervention: Supine to Sit Mobility [place] Level: Supine->Sit: stand-by assist Bed Features/Set-up: Supine->Sit: Head of bed elevated, Use of bed rail Skilled Rationale: Verbal cues, Initiation and execution of task Skilled Intervention/Details: Supine->Sit: x1 to EOB Sit to Supine Mobility [place] Level: Sit->Supine: not tested Skilled Intervention/Details: Sit->Supine: pt in chair at end of session Transfer Assessment/Intervention: Sit to Stand Transfer [place] Level: Sit->Stand: contact guard assist Assistive Device: Sit->Stand: gait belt, front-wheeled walker Skilled Rationale: Verbal cues, Initiation and execution of task Skilled Intervention/Details: Sit->Stand: x2 from EOB and x1 from chair Stand to Sit Transfer [place] Level: Stand->Sit: contact guard assist Assistive Device: Stand->Sit: gait belt, front-wheeled walker, armed chair, rail Skilled Rationale: Verbal cues, Initiation and execution of task Skilled Intervention/Details: Stand->Sit: x1 to bed and x2 to chair with cues for safety Gait/Functional Mobility Assessment/Intervention: Gait Assessment [place] Level: Gait: contact guard assist Assistive Device: [...] turning with AD. Stairs Assessment/Intervention: Stairs Assessment [place] Level: Stair Negotiation: not tested Outcome Score(s): [facility] Basic Mobility Inpatient Short Form Turning [...] railin - A Lot of Assistance [facility] Mobility Raw Score: 18 [facility] Mobility Functional Limitation: 46.58% Impaired in [...] Acute hypoxic resp failure - resolved At [facility] requiring o2. 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 toe per recent MRI (see care everywhere) - appreciate wound and podiatry - He will discuss with his outpatient insurance agent on Monday what he wants to do [...] Signed, Rafaela Garcia MD * Yris Martinez, [facility] - 05/11/2025 12:48 PM EDT 05/11/25 [...] Critical Care Medicine Cosigned by BOLA Caceres [facility] at 05/11/2025 11:33 AM EDT Associated attestation - Carmel Rosales [facility] - 05/11/2025 11:33 AM EDT Pulmonary Attending [...] participate inMr. Powell's care. Carmel Rosales MD, [facility] [employer] Pulmonary and Critical Care Pager #[phone] Attending Physician 05/11/2025 11:33 AM * Monica Martin RPH - 05/10/2025 6:34 PM EDT Department of Pharmacy Pharmacokinetics Progress Note Patient: Tirstin Powell Room/Bed: [facility] Assessment and Plan: Based upon drug level [...] further questions. Name: Monica Martin RPH Phone: [phone] Date/Time: 05/10/2025 6:35 PM * Rafaela Garcia [...] Acute hypoxic resp failure - resolved At [facility] requiring o2. 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 Powell's care. Carmel Rosales MD, [facility] [employer] [facility] Of Clinical Medicine Pulmonary and Critical Care Pager #[phone] Attending Physician 05/10/2025 1:05 PM * Dexter Espinoza - 05/09/2025 1:05 PM EDT Department of Pharmacy Admission Medication Reconciliation Note Patient: Tristin Powell Room/Bed: [facility]/A I have reviewed the patient's home [...] further questions. Name: Dexter Espinoza Phone #: [phone] Date/Time: 05/09/2025 1:05 PM Time Spent: 45 minutes Cosigned by Sirena Carpenter RP at 05/09/2025 1:45 PM EDT Associated attestation - Sirena Carpenter RP - 05/09/2025 1:45 PM EDT Department of Pharmacy Admission Medication Reconciliation Note Patient: Tristin Powell Room/Bed: [facility] Updated SENIOR BIOINFORMATICS SPECIALIST Med List: Prior to Admission Medications Prescriptions [...] reviewed the home medication list with the [facility]. The home medication list status is: complete and home med list marked as reviewed . All changes to the home medication list have been updated in IHIS. Please feel free to contact me with any further questions. Name: Sirena Carpenter [facility] Phone #: [phone] Date/Time: 05/09/2025 1:44 PM * Rafaela Garcia [...] Acute hypoxic resp failure - resolved At [facility] requiring o2. 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 : Yes Is the patient on Anticoagulation? : Yes- [facility] [id number] [place] [address] - [address] [facility] [address] [address] [address] Living Environment and Support System Is the patient from a facility or retirement?: No Living Environment: House Patient Caregiving Responsibilities: [...] at home? 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 Denies [...] Intervention/Details: Pt dons soft boot (with non-slip heel packer) on L foot for mobility despite education [...] performance Mobility Assessment: Supine to Sit Mobility [place] Level: Supine->Sit: contact guard assist Bed Features/Set-up: Supine->Sit: Head of bed elevated, Use of bed rail Skilled Rationale: Positioning, Verbal cues, Initiation and execution of task Skilled Intervention/Details: Supine->Sit: x1 to EOB with increased time Sit to Supine Mobility [place] Level: Sit->Supine: stand-by assist Bed Features/Set-up: Sit->Supine: Head of bed elevated Skilled Rationale: Verbal cues, Initiation and execution of task Skilled Intervention/Details: Sit->Supine: x1 from EOB Transfer Assessment: Sit to Stand Transfer [place] Level: Sit->Stand: contact guard assist Assistive Device: Sit->Stand: gait belt Skilled Rationale: Verbal cues, Initiation and execution of task, Cues for increased safety Skilled Intervention/Details: Sit->Stand: x1 from EOB impulsively and requires cues for line management/safety Stand to Sit Transfer [place] Level: Stand->Sit: contact guard assist Assistive Device: Stand->Sit: gait belt Skilled Rationale: Verbal cues, Controlled descent for sitting, Technique of activity, Positioning Skilled Intervention/Details: Stand->Sit: x1 to EOB with cues for positioning Functional Mobility: Functional Mobility [place] Level: Functional Mobility/Gait: contact guard assist Assistive [...] currently uses wheelchair?: No Outcome Score(s): [facility] Daily Activity Inpatient Short Form Putting on/Taking Off Lower Body Clothin - A Little Assistance Bathin - A Little Assistance Toiletin - A Little Assistance Putting on/Taking Off Upper Body Clothin - A Little Assistance Groomin - A Little Assistance Eatin - No Assistance [facility] Activity Raw Score: 19 [facility] Activity Functional Limitation/Modifier: 42.80% Currently Impaired in Daily Activity- CK [facility] Basic Mobility Inpatient Short Form Turning [...] a railin - A Little Assistance [facility] Mobility Raw Score: 18 [facility] Mobility Functional Limitation: 46.58% Impaired in [...] Level of Function Details: Independent 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 Denies [...] intact Mobility Assessment: Supine to Sit Mobility [place] Level: Supine->Sit: contact guard assist Bed Features/Set-up: Supine->Sit: Head of bed elevated, Use of bed rail Skilled Rationale: Verbal cues, Initiation and execution of task Skilled Intervention/Details: Supine->Sit: Increased time to complete Sit to Supine Mobility [place] Level: Sit->Supine: stand-by assist Bed Features/Set-up: Sit->Supine: [...] room Transfer Assessment: Sit to Stand Transfer [place] Level: Sit->Stand: contact guard assist Assistive Device: Sit->Stand: gait belt Skilled Rationale: Verbal cues, Initiation and execution of task Skilled Intervention/Details: Sit->Stand: Pt impulsively stands from EOB w/ repeat cueing for line safety Stand to Sit Transfer [place] Level: Stand->Sit: contact guard assist Assistive Device: Stand->Sit: gait belt Skilled Rationale: Sequencing, Verbal cues, Hand placement, Controlled descent for sitting, Technique of activity, Initiation and execution of task, Cues for increased safety Skilled Intervention/Details: Stand->Sit: X1 EOB Gait/Functional Mobility: Gait Assessment [place] Level: Gait: contact guard assist Assistive Device: [...] currently uses wheelchair?: No Outcome Score(s): [facility] Basic Mobility Inpatient Short Form Turning [...] a railin - A Little Assistance [facility] Mobility Raw Score: 18 [facility] Mobility Functional Limitation: 46.58% Impaired in Basic Mobility Assessment & Plan: Patient was admitted for 85 y.o. male with a past medical history of CAD x7 stents, PAD s/ SFA-peroneal bypass 02/2025, left metatarsal amputation, chronic R foot ulcer, HTN, HDL, BPH who presents as a transfer from [facility] due to hemoptysis. and seen for therapy [...] Therapy Discharge Summary. [facility] Miscellaneous Notes* Plan of Care - [...] and ID updated C Radha Hospitalist Van [id number] * Nursing Notes - Rajiv Page RN [...] notified of assessment and plan. Please page #[phone] or reconsult with any further needs. * [...] 05/09/2025 2:00 AM EDT On admission to [facility], from outside facility a dual RN initial assessment of skin condition was performed by Valentino Olivares RN and Manohar Tolliver RN Skin Assessment: Skin not within defined limits. - Wound(s) identified: Yes - Photo taken and uploaded into notes in IHIS: Yes LDA Added:No Valentino Olivares RN [facility] Miscellaneous Notes* Plan of Care - [...] and ID updated C Radha Hospitalist Van [id number] * Nursing Notes - Rajiv Page RN [...] notified of assessment and plan. Please page #[phone] or reconsult with any further needs. * [...] 05/09/2025 2:00 AM EDT On admission to [facility], from outside facility a dual RN initial assessment of skin condition was performed by Valentino Olivares RN and Manohar Tolliver RN Skin Assessment: Skin not within defined limits. - Wound(s) identified: Yes - Photo taken and uploaded into notes in IHIS: Yes LDA Added:No Valentino Olivares RN [facility] Plan of care note* Plan of [...] Almaraz PT at 05/13/2025 3:15 PM EDT [facility]09-15-2025 Plan of care note* Plan of Care [...] Gann PT at 05/12/2025 1:40 PM EDT [facility]09-15-2025 Plan of care note* Plan of Care [...] Ineffective Goal: Effective Breathing Pattern Outcome: Progressing [facility]09-14-2025 Nurse Note* Nursing Notes - Solitario Gonzalez [...] it is not infusing. MD Nixon aware. [facility]09-14-2025 Plan of care note* Plan of Care - Tameka Wells RN - 05/11/2025 6:57 PM EDT Problem: Swallowing Impairment Goal: Optimal Eating/Swallowing without Aspiration Outcome: Progressing Problem: Adult Inpatient Plan of Care Goal: Plan of Care Review Outcome: Progressing Goal: Patient-Specific Goal (Individualized) Outcome: Progressing [facility]09-14-2025 Plan of care note* Plan of Care [...] Goal: Plan of Care Review Outcome: Progressing [facility]09-13-2025 Plan of care note* Plan of Care [...] Care Goal: Patient-Specific Goal (Individualized) Outcome: Progressing [facility]09-12-2025 Plan of care note* Plan of Care - Kate Garcia RN - 05/09/2025 3:58 PM EDT Patient came with packet of OSH records, which have already been sent on to medical records, and scanned into media tab, , culture results are on page 19, updated ID OSH disc imaging uploaded by hospitalist Van fischer, Dr garcia and ID updated C Radha Hospitalist Van [id number] [facility] Consult note* Obdulio Chapa MD - 05/09/2025 [...] treated for AECOPD exacerbation at OSH and [facility] but states that he felt [...] Laterality: N/A; Surgeon: Isaias Vogt MD; Location: [facility] CARDIAC CATH/EP LAB PERIPHERAL STENT PLACEMENT N/A 08/09/2018 Laterality: N/A; Surgeon: Isaias Vogt MD; Location: [facility] CARDIAC CATH/EP LAB ATHERECTOMY PERIPHERAL N/A 08/09/2018 Laterality: N/A; Surgeon: Isaias Vogt MD; Location: [facility] CARDIAC CATH/EP LAB CORONARY STENT PLACEMENT 2007 [...] as outlined below Beena Nguyen MD MPH [facility]09-12-2025 Consult note* Obdulio Chapa MD - 05/09/2025 [...] TXA inhaled Bronchodilators Prednisone as outlined below Benea Nguyen MD MPH * Paola Cordova MD [...] presented on 05/09/2025 as a transfer from [facility]. Patient presented to [facility] 05/02/25 with LAM, cough x10 days with blood streaked sputum. 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 At [facility], he was found tohave rhinovirus. CT chest (05/04/25) showed bilateral patchy infiltrates, 10 cm air-fluid collection LLL c/f infected bullae vs abscess. Started on abx (pip/tazo and doxycycline), prednisone, duonebs. Developed worsening hemoptysis and pulmonary recommended transfer to [facility] for embolization. Patient was admitted to [place] [address]. On RA, sputum pink tinged. Patient is afebile. Currently on cefepime and vancomycin. Has coughing fits that make him sob. Blood tinged sputum. Has fevers at [facility], but has since resolved. Of note, patient was admitted to [facility] 03/14/25 - 03/21/25 with acute RLE ischemia. S/p distal SFA-peroneal bypass 03/12/25. After he got home, his right great toe became black on the lateral side. Saw his insurance agent who took off the nail. Prescribed him amox/clav and TMP/SMX. Patient has known bone exposure and his insurance agent prepped him for the fact that it may need to come off. Review of Systems - all systems reviewed and negative unless stated in the HPI. 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 Family History Problem Relation Age [...] 05/09/2025 BILIDIRECT 0.1 05/09/2025 Microbiology: (personally reviewed) [facility] - called micro to get results [...] pneumo ag neg Imagin05/06/25 - CT chest ([facility]) - unable to see images - potential infected LLL bulla is once again noted. Impression: no significant chagne in lung findings compared to the prior study from 05/04/25. Bibasilar consolidations with potential infected bullae involving the LLL persists Impression: 85 y.o. male with CAD, PAD s/p SFA-peroneal bypass 02/2025, HTN, HLD, BPH, A fib, CKD3a transferred from [facility] with PNA and hemoptysis. Need full records and images brought over from [facility] to review. Initial sputum culture with [...] page the on-call ID/1st call Fellow pager. [employer] - [facility] Infectious Disease - Paola Cordova MD [employer] network administrator Division of Infectious Diseases Pager #[phone] [1] Past Medical History: Diagnosis Date Arthritis [...] Allergen Reactions Gabapentin [facility] Consult note* Obdulio Chapa MD - [...] presented on 05/09/2025 as a transfer from [facility]. Patient presented to [facility] 05/02/25 with LAM, cough x10 days with blood streaked sputum. 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 At [facility], he was found tohave rhinovirus. CT chest (05/04/25) showed bilateral patchy infiltrates, 10 cm air-fluid collection LLL c/f infected bullae vs abscess. Started on abx (pip/tazo and doxycycline), prednisone, duonebs. Developed worsening hemoptysis and pulmonary recommended transfer to [facility] for embolization. Patient was admitted to [place] [address]. On RA, sputum pink tinged. Patient is afebile. Currently on cefepime and vancomycin. Has coughing fits that make him sob. Blood tinged sputum. Has fevers at [facility], but has since resolved. Of note, patient was admitted to [facility] 03/14/25 - 03/21/25 with acute RLE ischemia. S/p distal SFA-peroneal bypass 03/12/25. After he got home, his right great toe became black on the lateral side. Saw his insurance agent who took off the nail. Prescribed him amox/clav and TMP/SMX. Patient has known bone exposure and his insurance agent prepped him for the fact that it may need to come off. Review of Systems - all systems reviewed and negative unless stated in the HPI. 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 Family History Problem Relation Age [...] 05/09/2025 BILIDIRECT 0.1 05/09/2025 Microbiology: (personally reviewed) [facility] - called micro to get results [...] pneumo ag neg Imagin05/06/25 - CT chest ([facility]) - unable to see images - potential infected LLL bulla is once again noted. Impression: no significant chagne in lung findings compared to the prior study from 05/04/25. Bibasilar consolidations with potential infected bullae involving the LLL persists Impression: 85 y.o. male with CAD, PAD s/p SFA-peroneal bypass 02/2025, HTN, HLD, BPH, A fib, CKD3a transferred from [facility] with PNA and hemoptysis. Need full records and images brought over from [facility] to review. Initial sputum culture with [...] the ID Team 5 pager found in [id number] below. The ID Team pagers are available - Monday through Monday from 7:00 am to 06:00 pm. For emergent or after hour issues, please page the on-call ID/1st call Fellow pager. [employer] - [facility] Infectious Disease - Paola Cordova MD [employer] network administrator Division of Infectious Diseases Pager #[phone] [1] Past Medical History: Diagnosis Date Arthritis [...] Allergen Reactions Gabapentin [facility] Nurse Note* Nursing Notes - Valentino Olivares RN - 05/09/2025 2:00 AM EDT On admission to [facility], from outside facility a dual RN initial assessment of skin condition was performed by Valentino Olivares RN and Manohar Tolliver RN Skin Assessment: Skin not within defined limits. - Wound(s) identified: Yes - Photo taken and uploaded into notes in IHIS: Yes LDA Added:No Valentino Olivares RN [facility]09-12-2025 Consult note* Paola Cordova MD - 05/09/2025 10:28 AM EDTAssociated Order(s): IP CONSULT TO INFECTIOUS DISEASE INFECTIOUS DISEASE CONSULT NOTE Referring MD: Rafaela Garcia MD Reason for Consult: 85 y/o M with COPD p/f OSH with rhinovirus c/b PNA, infected lung bullae vs. abscess per reports; would appreciate assitance with antibiotic regimen, any further w/u needed; pulm also following Chief Complaint: hemoptysis HPI: rTistin Powell Sr. is a 85 y.o. male with a PMH of CAD, PAD s/p SFA-peroneal bypass 02/2025, HTN, HLD,BPH, A fib, CKD3a who presented on 05/09/2025 as a transfer from [facility]. Patient presented to [facility] 05/02/25 with LAM, cough x10 days with blood streaked sputum. 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 At [facility], he was found tohave rhinovirus. CT chest (05/04/25) showed bilateral patchy infiltrates, 10 cm air-fluid collection LLL c/f infected bullae vs abscess. Started on abx (pip/tazo and doxycycline), prednisone, duonebs. Developed worsening hemoptysis and pulmonary recommended [facility] for [facility]. Patient was admitted to [place] [address]. On RA, sputum pink tinged. Patient is afebile. Currently on cefepime and vancomycin. Has coughing fits that make him sob. Blood tinged sputum. Has fevers at [facility], but has since resolved. Of note, patient was admitted to [facility] 03/14/25 - 03/21/25 with acute RLE ischemia. S/p distal SFA-peroneal bypass 03/12/25. After he got home, his right great toe became black on the lateral side. Saw his insurance agent who took off the nail. Prescribed him amox/clav and TMP/SMX. Patient has known bone exposure and his insurance agent prepped him for the fact that it may need to come off. Review of Systems - all systems reviewed and negative unless stated in the HPI. 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 Family History Problem Relation Age [...] 05/09/2025 BILIDIRECT 0.1 05/09/2025 Microbiology: (personally reviewed) [facility] - called micro to get results [...] pneumo ag neg Imagin05/06/25 - CT chest ([facility]) - unable to see images - potential infected LLL bulla is once again noted. Impression: no significant chagne in lung findings compared to the prior study from 05/04/25. Bibasilar consolidations with potential infected bullae involving the LLL persists Impression: 85 y.o. male with CAD, PAD s/p SFA-peroneal bypass 02/2025, HTN, HLD, BPH, A fib, CKD3a transferred from [facility] with PNA and hemoptysis. Need full records and images brought over from [facility] to review. Initial sputum culture with [...] on-call ID/1st call Fellow pager. [facility] System-Wide Infectious Disease - Paola Cordova MD Therapeutic [employer] network administrator Division of Infectious Diseases Pager #[phone] [1] Past Medical History: Diagnosis Date Arthritis [...] prostate [3] Allergies Allergen Reactions Gabapentin [facility] Work Phone: 1(376) 649-727909-12-2025 Nurse Note* Nursing Notes - Rajiv Page [...] notified of assessment and plan. Please page #[phone] or reconsult with any further needs. [facility] Hospital Discharge instructions* Discharge Instructions* Rafaela [...] the following: Please follow-up with your local chargemaster specialist in 4-6 weeks and get a repeat [...] your discharge, please call our office at [phone] or your floor and one of our nurses will call you back. Division of Hospital Medicine [phone] Patient Experience Survey Reminder You may receive a survey in the mail within a few weeks regarding your hospitalization. This helps us to improve the care and services we provide at [facility]. We truly appreciate you taking the time to fill this out. We particularly welcome any specific comments you may have (good or bad!) regarding [facility] experience[facility] so that we may use them to continue to strive towards excellence for our patients. * Attachments The following attachments cannot be sent through Care Everywhere. * Blood Thinners: How to Prevent Bleeding ([facility]) ([place]alian) [facility] Hospital Discharge instructions* Discharge Instructions* Rafaela [...] the following: Please follow-up with your local chargemaster specialist in 4-6 weeks and get a repeat [...] your discharge, please call our office at [phone] or your floor and one of our nurses will call you back. Division of Hospital Medicine [phone] Patient Experience Survey Reminder You may receive a survey in the mail within a few weeks regarding your hospitalization. This helps us to improve the care and services we provide at [facility]. We truly appreciate you taking the time to fill this out. We particularly welcome any specific comments you may have (good or bad!) regarding your experience[facility] so that we may use them to continue to strive towards excellence for our patients. * Attachments The following attachments cannot be sent through Care Everywhere. * Blood Thinners: How to Prevent Bleeding ([facility]) ([place]) [facility] Plan of care note* Plan of [...] with minimal cues for accuracy. Outcome: Ongoing [facility]09-12-2025 Plan of care note* Plan of Care [...] understanding of exercise program. Outcome: [facility] History and physical note* Jose Manuel [...] non massive Requiring inhaled TXA TID at [facility]. On arrival to [facility] patient only producing pink-tinged sputum, no ileana blood. Remains stable on room air. Hgb at [facility] 10- 11. Stable on [facility] to [facility] [...] Acute hypoxic resp failure - resolved At [facility] requiring o2. Weaned to room air prior [...] OSH due to hemoptysis. Patient presented to [facility] on 05/02 due to shortness of breath on exertion, chest congestion, nonproductive cough that had been ongoing for about 10 days. He had been diagnosed with bronchitis about 10 days prior to admission to [facility] and had been taking steroids and breathing [...] department by his PCP. On arrival to [facility] ED chest x-ray was notable for hilar vascular c ongestion, bibasilar linear atelectasis and hyperinflation and was admitted for further evaluation and management. Work up at [facility] was remarkable for (+) rhinovirus and a [...] TID. He was evaluated by Pulmonology at [facility] who recommended embolization for management of hemoptysis; [...] Laterality: N/A; Surgeon: Isaias Vogt MD; [facility] PERIPHERAL STENT PLACEMENT N/A 08/09/2018 Laterality: N/A; Surgeon: Isaias Vogt MD; [facility] ATHERECTOMY PERIPHERAL N/A 08/09/2018 Laterality: N/A; Surgeon: Isaias Vogt MD; [facility] CORONARY STENT PLACEMENT 2007 x3 total of 7 AMPUTATION front of left toes ANKLE FRACTURE SURGERY Left plate placed in L ankle CORONARY ARTERY BYPASS GRAFT 3 vessel RADIOGRAPHIC/SURGICAL IMPLANT INDEX jul 2010-november 2010 radioactive seeds implanted prostate [3] Allergies Allergen Reactions Gabapentin [facility]09-12[facility]2025 History and physical note* Jose Manuel [...] non massive Requiring inhaled TXA TID at [facility]. On arrival to [facility] patient only producing pink-tinged sputum, no ileana blood. Remains stable on room air. Hgb at [facility] 10- 11. Stable on arrival to [facility] [...] Acute hypoxic resp failure - resolved At [facility] requiring o2. Weaned to room air prior to transfer to [facility] - [facility] PAD s/ SFA-peroneal bypass 02/2025 Chronic [...] OSH due to hemoptysis. Patient presented to [facility] on 05/02 due to shortness of breath on exertion, chest congestion, nonproductive cough that had been ongoing for about 10 days. He had been diagnosed with bronchitis about 10 days prior to admission to [facility] and had been taking steroids and breathing [...] department by his PCP. On arrival to [facility] ED chest x-ray was notable for hilar vascular c ongestion, bibasilar linear atelectasis and hyperinflation and was admitted for further evaluation and management. Work up at [facility] was remarkable for (+) rhinovirus and a [...] TID. He was evaluated by Pulmonology at [facility] who recommended embolization for management of hemoptysis; [...] Allergen Reactions Gab[facility] History and physical note* Jose Manuel [...] non massive Requiring inhaled TXA TID at [facility]. On arrival to [facility] patient only producing pink-tinged sputum, no ileana blood. Remains stable on room air. Hgb at [facility] 10- 11. Stable on arrival to [facility] [...] Acute hypoxic resp failure - resolved At [facility] requiring o2. Weaned to room air prior [...] OS due to hemoptysis. Patient presented to [facility] on 05/02 due to shortness of breath on exertion, chest congestion, nonproductive cough that had been ongoing for about 10 days. He had been diagnosed with bronchitis about 10 days prior to admission to [facility] and had been taking steroids and breathing [...] department by his PCP. On arrival to [facility] ED chest x-ray was notable for hilar vascular c ongestion, bibasilar linear atelectasis and hyperinflation and was admitted for further evaluation and management. Work up at [facility] was remarkable for (+) rhinovirus and a [...] TID. He was evaluated by Pulmonology at [facility] who recommended embolization for management of hemoptysis; [...] Allergen Reactions Gabap[facility] History of Present illness Narrative* LEONARDA Villavicencio - 05/02/2025 1:00 PM EDT Images from the original note were not included. Subjective Patient ID: Tristin Powell is a 85 y.o. male who presents for [facility] ER follow up. Flowsheet Row Patient Outreach from 05/01/2025 in [facility] with Elaine Saab LPN [facility] Information ED, Hospital or [facility] Facility Discharge? ED Patient has been contacted within 2 days of being seen in the ED Yes Diagnosis Acute bronchitis, mild COPD exacerbation Discharge Date 04/30/25 Discharged To: Home Setting Discharge Hospital [facility] Engagement Call Start Time 1124 [...] Carotid artery disease Cataract 2014 Cellulitis 01/19/2022 [facility] Cellulitis LLE Colon polyps 2012 Critical lower limb ischemia ([facility]) 09/04/2018 Last Assessment & Plan: Pt s/p LLE angiogram with Dr Hahn who feels that the pt has no further endovascular options. He has consulted Dr. Sarabia for a possible tibial bypass. Pt s/p LLE critical limb ischemia Bethel class 4 rest pain with distal discoloration to histoes Gangrene of left foot (HCC) 10/04/2018 Groin hematoma 2014 RT Femoral groin Hematoma H/O myocardial perfusion scan 07/09/2019 LVEF 56% Myocardial perfusion imaging shows a defect in Apical wall Herpes zoster 09/04/2011 History of being hospitalized 12/06/2020 Strep Pneumonia, Resp. 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 Rowe at [facility] COLONOSCOPY W/ POLYPECTOMY 2011 CORONARY ARTERY [...] HISTORY 04/25/2022 Diagnostic LE catheterization Dr. Hahn [facility] MEDICATION MANAGEMENT 11/2020 Multi resistant Strep Pneumonia, [...] ahospital and agrees to go back to [facility] for further evaluation. His brother will take him directly. Follow up for ER follow up. documented in this encounterKansas City VA Medical [id number] Telephone encounter Note* Telephone Encounter - LEONARDA Villavicencio - 04/29/2025 9:54 PM EDT Metoprolol sent. [facility] [id number] Miscellaneous Notes* Telephone Encounter - LEONARDA Villavicencio - 04/29/2025 9:54 PM EDT Metoprolol sent. documented in this [facility]08-27-2025 NoteI saw Mr. Powell in office today [...] wound care under the care of a insurance agent. He is on his ASA, xarelto and [...] home. AUTHENTICATED BY MOHSEN SARABIA, ON 04/23/2025 15:06:32[facility] [id number] History of Present illness Narrative* Mohsen Sarabia [...] wound care under the care of a insurance agent. He is on his ASA, xarelto and [...] done close to home. documented in this [id number] Telephone encounter Note* Telephone Encounter - Flash Lovelace MD - 04/21/2025 1:31 PM EDT Patient requests Zofran refilled [facility] [id number] Miscellaneous Notes* Telephone Encounter - Flash Lovelace MD - 04/21/2025 1:31 PM EDT Patient requests Zofran refilled documented in this encounterNOMissouri Rehabilitation [id number] History of Present illness Narrative* Flash Lovelace [...] Avascular necrosis of bone of hip ([facility]) 09/04/2011 Right hip Right hip CAD (coronary artery disease) 2013 Carotid artery disease Cataract 2014 Cellulitis 01/19/2022 [facility] Cellulitis LLE Colon polyps 2012 Critical lower limb ischemia ([facility]) 09/04/2018 Last Assessment & Plan: Pt s/p LLE angiogram with Dr Hahn who feels that the pt has no further endovascular options. He has consulted Dr. Sarabia for a possible tibial bypass. Pt s/p LLE critical limb ischemia Bethel class 4 rest pain with distal discoloration to histoes Gangrene of left foot ([facility]) 10/04/2018 Groin hematoma 2013 RT Femoral groin Hematoma H/O myocardial perfusion scan 07/09/2019 LVEF 56% Myocardial perfusion imaging shows a defect in Apical wall Herpes zoster 09/04/2011 History of being hospitalized 12/06/2020 Strep Pneumonia, Resp. Failure - [facility] History of being hospitalized [place] [facility] 07/15/2021-07/16/2021 History of coronary angiogram [...] incomplete bowel prep Diverticulosis Dr. Rowe at [facility] COLONOSCOPY W/ POLYPECTOMY 2011 CORONARY ARTERY [...] HISTORY 04/25/2022 Diagnostic LE catheterization Dr. Hahn [facility] MEDICATION MANAGEMENT 11/2020 Multi resistant Strep Pneumonia, [...] No follow-ups on file. documented in this encounterKansas City VA Medical [id number] Telephone encounter Note* Telephone Encounter - LEONARDA [...] ran in error. Spoke with Deena at [facility]. [facility] [id number] Miscellaneous Notes* Telephone Encounter - LEONARDA Villavicencio [...] ran in error. Spoke with Deena at [facility]. documented in this encounterKansas City VA Medical CenterCifxolqqtm07-24-1656 History of Present illness Narrative* LEONARDA Villavicencio [...] Carotid artery disease Cataract 2014 Cellulitis 01/19/2022 [facility] Cellulitis LLE Colon polyps 2012 Critical lower limb ischemia ([facility]) 09/04/2018 Last Assessment & Plan: Pt s/p LLE angiogram with Dr Hahn who feels that the pt has no further endovascular options. He has consulted Dr. Sarabia for a possible tibial bypass. Pt s/p LLE critical limb ischemia Bethel class 4 rest pain with distal discoloration to histoes Gangrene of left foot (HCC) 10/04/2018 Groin hematoma 2014 RT Femoral groin Hematoma H/O myocardial perfusion scan 07/09/2019 LVEF 56% Myocardial perfusion imaging shows a defect in Apical wall Herpes zoster 09/04/2011 History of being hospitalized 12/06/2020 Strep Pneumonia, Resp. Failure - [facility] History of being hospitalized [place] [facility] 07/15/2021-07/16/2021 History of coronary angiogram [...] incomplete bowel prep Diverticulosis Dr. Rowe at [facility] COLONOSCOPY W/ POLYPECTOMY 2011 CORONARY ARTERY [...] HISTORY 04/25/[address] LE catheterization [address]. Hahn CO MEDICATION MANAGEMENT 11/2020 Multi resistant Strep Pneumonia, [...] for Medication Follow Up. documented in this encounterKansas City VA Medical [id number] NoteI saw Mr. Powell today in office [...] foot care and OMT. documented in this [id number] History of Present illness Narrative* Flash Lovelace [...] getting better. Hospital Information ED, Hospital or [facility] Facility Discharge? Hospital Patient has been contacted within two business days of discharge Yes Diagnosis claudication, rightleg pain, PAD Discharge Date 03/21/25 Discharged To: Home Setting Discharge Hospital [facility] Engagement Call Start Time 1226 Admission [...] What is the home health agency? [facility] Has home health visited the patient within [...] had recent balloon angioplasty 03/12/2025,. presented to [facility] ED on 03/14/2025 from Vascular Surgery [...] Carotid artery disease Cataract 2014 Cellulitis 01/19/2022 [facility] Cellulitis LLE Colon polyps 2012 Critical lower limb ischemia ([facility]) 09/04/2018 Last Assessment & Plan: Pt s/p LLE angiogram with Dr Hahn who feels that the pt has no further endovascular options. He has consulted Dr. Sarabia for a possible tibial bypass. Pt s/p LLE critical limb ischemia Bethel class 4 rest pain with distal discoloration to histoes Gangrene of left foot ([facility]) 10/04/2018 Groin hematoma 2013 RT Femoral groin Hematoma H/O myocardial perfusion scan 07/09/2019 LVEF 56% Myocardial perfusion imaging shows a defect in Apical wall Herpes zoster 09/04/2011 History of being hospitalized 12/06/2020 Strep Pneumonia, Resp. Failure - [facility] History of being hospitalized [place] [facility] 07/15/2021-07/16/2021 History of coronary angiogram [...] incomplete bowel prep Diverticulosis Dr. Rowe at [facility] COLONOSCOPY W/ POLYPECTOMY 2011 CORONARY ARTERY [...] HISTORY 04/25/20[address] Diagnostic LE catheterization Dr. Hahn CO MEDICATION MANAGEMENT 11/2020 Multi resistant Strep Pneumonia, [...] reviewed for this patient. documented in this encounterKansas City VA Medical [id number] History of Present illness Narrative* Froylan Higgins - 03/21/2025 4:00 PM EDT Spiritual Care Progress Note Completed by: Froylan Higgins Person(s) Present During this Visit: Patient Time Spent in Direct Patient Care: 30 Narrative: This Vice President Planning visited Tristin while rounding. Pt identifies as voodoo and finds hope/support in family. Vice President Planning provided empathetic listening with supportive presence and compassionate care. Pt shared a narrative of illness and some life experiences. Pt expressed gratitude for cold rolling machine setter's support and visit. Pt was informed about 20/03 availability of the Chaplains, and how to contact. Pastoral Care Team will remain available to provide emotional and spiritual care support PRN. Patients Response to Pastoral Care: Expressed Gratitude for Visit, Appeared to be well-engaged Planning for Future Visits: PRN Patient's Spiritual Needs Assessment 03/21/25 1600 Visit Background Visit With Patient Visit By Staff Vice President Planning Visit Progression Introduction Visit Requested By Vice President Planning Initiated Visit Source Vice President Planning Initiated Visit Type Inpatient;Rounding Visit Circumstances and Events Routine Visit Visit Length (minutes) 30 Patient's Response to Pastoral Care Expressed Gratitude for Visit;Appeared to be well-engaged Visit Planning PRN Spiritual Assessment Assessed during this visit Catholic Assessment Assessed during this visit Family assessment provided? Unable to asess during this visit Patient Spiritual Needs Assessment Sources of Connection Son;Daughter;Other (see comment) (family) Belief Practices Attends Catholic Services Image of the Divine Answers Prayer;Comforter;Creator;Healer;Guide;Love;Listens [...] of Care Focus on Wellness;Receive Comfort Patient Catholic Needs Assessment Catholic Connection Attends as Often as Able Catholic Home [employer]an Yarsani Connection Non-Yarsani Place of Bahai - Name Life of Riky Catholic Resources Hope/Trust in God;Prayer Catholic Rituals [place];Prayer Expressed Outcome Expressed Gratitude;Expressed Hope Rev. Froylan Higgins MBA., Josephine, M.Div Staff Vice President Planning, Pastoral Care [address] [address] * Jagruti Mooney PTA - 03/21/2025 12:21 PM EDT Physical Therapy PHYSICAL THERAPY TREATMENT NOTE Skilled Therapy Needs After Discharge Anticipate Resolution of Current Assessment Limitations Including: Pain, Mechanical Barriers Are dietitian therapeutic Therapy Services Needed After Discharge: Yes Intensity of dietitian therapeutic Therapy: Up to 5 days per week Anticipated Duration of dietitian therapeutic Therapy: Duration 7 - 10 days PT [...] - Static: Contact guard assist, with device Glue Cook - Standing Static: wheeled walker Standing Balance - Dynamic: Contact guard assist, with device Glue Cook - Standing Dynamic: wheeled walker Skilled Intervention [...] (Seated EOB post session with nursing notified) Glue Cook: bedrails, bed positioning mechanics Skilled Intervention Provided: [...] Lateral Transfers: Contact guard assist, Minimal assist Glue Cook: wheeled walker Skilled Intervention Provided: verbal cues, [...] secondary impairment(s) Car Transfers: Contact guard assist Glue Cook: wheeled walker Skilled Intervention Provided: verbal cues, [...] walker.) Prior Level of Function Level of [place] - Transfers/Ambulation/Mobility: Independent with functional transfers Level of [place] - ADLs: Independent Level of [place] - Homemaking: Independent Driving: Patient drives Vocational: [...] of : 1940 Discharge Plan: D/C Disposition: [facility] Facility Related to Current Admission?: Yes Plan A: Home Health Care Services Plan B: Home Discharging Transportation Plan: Transportation Type: Auto Discharge Plan Status: home vs SNF CM following for dc needs. Chart reviewed, patient last able to work with therapy 03/20, current recs are up to 5 with ampac of 19. Patient originally wanted to go home with [facility]. After discussion withattending physician, now open to snf placement. Patient walking 20 feet. Will obtain choices and send referrals. Patient will need precert once med ready. Patient nearing med readiness. If unable to secure SNF will plan for home going plan with [facility], will place hub order for therapy. Will continue to follow as patient progresses medically. Addendum 919: hub order placed for [facility] therapy. One accepted, likely plan for discharge later todayonce [facility] accepted. Addendum 1551: patient now wanting OP therapy. Order placed, and updated liaison to cancel hhc order. Patient now med ready for discharge. Assessment and Background Information: * Darius Sultana - 03/20/2025 3:43 PM EDT Physical Therapy PHYSICAL THERAPY TREATMENT NOTE Skilled Therapy Needs After Discharge Anticipate Resolution of Current Assessment Limitations Including: Pain, Mechanical Barriers Are dietitian therapeutic Therapy Services Needed After Discharge: Yes Intensity of dietitian therapeutic Therapy: Up to 5 days per week Anticipated Duration of dietitian therapeutic Therapy: Duration 7 - 10 days PT [...] - Static: Contact guard assist, Minimal assist Glue Cook - Standing Static: wheeled walker Standing Balance - Dynamic: Contact guard assist, Minimal assist Glue Cook - Standing Dynamic: wheeled walker Skilled Intervention [...] to Supine: (Pt ended session in recliner) Glue Cook: bedrails, bed positioning mechanics Transfers Sit to Stand: Moderate assist, 2 person assist (x1 from bed, x1 from toilet, x1 from recliner) Stand Pivot Transfers: Minimal assist Glue Cook: wheeled walker Skilled Intervention Provided: verbal cues, [...] walker.) Prior Level of Function Level of [place] - Transfers/Ambulation/Mobility: Independent with functional transfers Level of [place] - ADLs: Independent Level of [place] - Homemaking: Independent Driving: Patient drives Vocational: [...] Voss DO - 03/20/2025 8:03 AM EDT [facility] Progress Note 03/20/2025 Tristin Powell 1940 [id number] Assessment/Plan: Tristin Powell is a 85 y.o. male with a history of Peripheral Artery Disease s/p Bypass, Afib (Xarelto), Diastolic Heart Failure, Coronary Artery Disease s/p CABG, recent balloon angioplasty 03/12/2025,. presented to [facility] ED on 03/14/2025 from Vascular Surgery clinic with intractable right foot pain. Found to have critical right LE ischemia Critical right lower limb ischemia: History of PAD. Follows Dr. Beaver ([facility] Surgery) and Dr. Sarabia (Vascular Surgery) [...] S/p IV pain meds. CAD: Followed by [facility] Cardiology s/p 3 vessel coronary artery [...] xarelto Medication Reconciliation: Reviewed using patient interview, psychology technician Current living situation: home Expected Disposition: [...] major joint deformity: RLE tired leg and oven drier tender to touch. Moving well withmild pain.: Decreased [...] (2018, [facility]), left TMA who presented to [facility] on 03/14/2025 with worsening RLE pain [...] TREV COLEMAN MD General Surgery Resident, PGY-1 [facility] Please contact surgical administration intern environmental studies faculty member 5PM-6AM and weekends - #[phone] VTS Pager - #[phone] Subjective NAEO. Has been ambulating. New bruising [...] Voss DO - 03/19/2025 8:02 AM EDT [facility] Inpatient Progress Note 03/19/2025 Tristin Powell 1940 [id number] Assessment/Plan: Tristin Powell is a 85 y.o. male with a history of Peripheral Artery Disease s/p Bypass, Afib (Xarelto), Diastolic Heart Failure, Coronary Artery Disease s/p CABG, recent balloon angioplasty 03/12/2025,. presented to [facility] ED on 03/14/2025 from Vascular Surgery clinic with intractable right foot pain. Found to have critical right LE ischemia Critical right lower limb ischemia: History of PAD. Follows Dr. Beaver ([facility]ascular Surgery) and Dr. Sarabia (Vascular Surgery) [...] added, wean as able. CAD: Followed by [facility] Cardiology s/p 3 vessel coronary artery [...] xarelto Medication Reconciliation: Reviewed using patient interview, psychology technician Current living situation: home Expected Disposition: PT/OT rec up to 5 pt requesting home with [facility] following. Estimated discharge date: ~03/20/2025 Medically [...] major joint deformity: RLE tired leg and oven drier tender to touch. Moving well withmild pain.: Decreased [...] (2018, [facility]), left TMA who presented to [facility] on 03/14/2025 with worsening RLE pain [...] TREV COLEMAN MD General Surgery Resident, PGY-1 [facility] Please contact surgical administration intern environmental studies faculty member 5PM-6AM and weekends - #[phone] VTS Pager - #[phone] Subjective NAEO. Was able to get up [...] Limitations Including: Mechanical Barriers, Social Support Are dietitian therapeutic Therapy Services Needed After Discharge: Yes Intensity of dietitian therapeutic Therapy: Up to 5 days per week Anticipated Duration of dietitian therapeutic Therapy: Duration 10 - 30 days PT [...] Supine: Minimal assist, Head of bed flat Glue Cook: bedrails, patient slide sheet / friction-reducing device, [...] walker.) Prior Level of Function Level of [place] - Transfers/Ambulation/Mobility: Independent with community ambulation, Independent with household ambulation, Independent with functional transfers Level of [place] - ADLs: Independent Level of [place] - Homemaking: Independent Driving: Patient drives Vocational: [...] Avascular necrosis of bone of hip ([facility]) Claudication COPD (chronic obstructive pulmonary disease) ([facility]) Coronary artery disease Herpes zoster Hyperlipidemia Hypertension PAD (peripheral artery disease) ([facility]) 01/21/2022 Posterior tibial tendinitis of right leg 11/07/2022 Prostate cancer ([facility]) Vascular disease Past Surgical History: Procedure Laterality Date 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/08/2018 Procedure: LEFT MIDFOOT AMPUTATION; Surgeon: Flynn Mann DPM; Location: [facility] OR; Service: Podiatry ANKLE SURGERY Left BYPASS FEMOROTIBIAL REPAIR/GRAFT Right 03/17/2025 Procedure: RIGHT FEMORAL TO TIBIAL BYPASS WITH ARM VEIN. Angiogram; Surgeon: Mohsen Sarabia MD; Location: [facility]; Service: Gen-Vascular; Laterality: Right; BYPASS PERONEAL FEMORAL Right 09/07/2018 Procedure: BYPASS PERONEAL FEMORAL, RIGHT SAPHENOUS VEIN HARVEST, COMPLETION ANGIOGRAM; Surgeon: Mohsen Sarabia MD; Location: [facility]; Service: Cardiovascular CARDIAC CATHETERIZATION Left 09/05/2018 Procedure: Angio Lower Extremity; Surgeon: Ben Hahn MD; Location: [facility]; Service: Cardiovascular CARDIAC SURGERY 2017 triple bypass [...] Voss DO - 03/18/2025 8:14 AM EDT [facility] Inpatient Progress Note 03/18/2025 Tristin Hortensia Sherry 1940 [id number] Assessment/Plan: Tristin Powell is a 85 y.o. male with a history of Peripheral Artery Disease s/p Bypass, Afib (Xarelto), Diastolic Heart Failure, Coronary Artery Disease s/p CABG, recent balloon angioplasty 03/12/2025,. presented to [facility] ED on 03/14/2025 from Vascular Surgery clinic with intractable right foot pain. Found to have critical right LE ischemia Critical right lower limb ischemia: History of PAD. Follows Dr. Beaver ([facility]) and Dr. Sarabia (Vascular Surgery) [...] dose. IV Dilaudid added. CAD: Followed by [facility] s/p 3 vessel coronary artery [...] per Medication Reconciliation: Reviewed using patient interview, psychology technician Current living situation: home Expected Disposition: [...] major joint deformity: RLE tired leg and oven drier tender to touch. Moving well withmild pain.: Decreased [...] (2019, Walker), left TMA who presented to [facility] on 03/14/2025 with worsening RLE pain [...] TREV COLEMAN MD General Surgery Resident, PGY-2 [facility] Please contact surgical administration intern environmental studies faculty member 5PM-6AM and weekends - #[phone] VTS Pager - #[phone] Subjective NAEO. Feels good this morning. Wants [...] (Jony, Cornell), left TMA who presented to [facility] on 03/14/2025 with worsening RLE pain [...] Walker MD General Surgery Please contact surgical administration intern environmental studies faculty member 5PM-6AM and weekends VTS Pager - #[phone] SUBJECTIVE Patient is resting in bed with [...] Murray MD - 03/17/2025 7:58 AM EDT [facility] Inpatient Progress Note 03/17/2025 Tristin Powell 1940 [id number] Assessment/Plan: Tristin Powell is a 85 y.o. male with a history of Peripheral Artery Disease s/p Bypass, Afib (Xarelto), Diastolic Heart Failure, Coronary Artery Disease s/p CABG, recent balloon angioplasty 03/12/2025,. presented to [facility] ED on 03/14/2025 from Vascular Surgery clinic with intractable right foot pain. Found to have critical right LE ischemia Critical right lower limb ischemia: History of PAD. Follows Dr. Beaver ([facility]) and Dr. Sarabia (Vascular Surgery) [...] dose. IV Dilaudid added. CAD: Followed by [facility] s/p 3 vessel coronary artery [...] per Medication Reconciliation: Reviewed using patient interview, psychology technician Current living situation: home Expected Disposition: [...] major joint deformity: RLE tired leg and oven drier tender to touch. Moving well withmild pain.: Decreased [...] (2019, Walker), left TMA who presented to [facility] on 03/14/2025 with worsening RLE pain [...] Beena Barraza MD General Surgery Resident, PGY-2 [facility] Please contact surgical administration intern environmental studies faculty member 5PM-6AM and weekends - #[phone] VTS Pager - #[phone] Subjective NAEO. Is ready for surgery tomorrow, [...] and rubor. He had undergone angiography in [place], with chronic occlusion of an aneurysm/ectatic right [...] Murray MD - 03/16/2025 10:32 AM EDT [facility] Inpatient Progress Note 03/16/2025 Tristin Powell 1940 [id number] Assessment/Plan: Tristin Powell is a 85 y.o. male with a history of Peripheral Artery Disease s/p Bypass, Afib (Xarelto), Diastolic Heart Failure, Coronary Artery Disease s/p CABG, Hypertension, CKD III, COPD, ProstateCancer, and Insomnia. Patient had outpatient angiogram 03/12/25 with balloon angioplasty. He presented to [facility] ED on 03/14/2025 from Vascular Surgery clinic with intractable right foot pain. In ED: right YAMILE 0.5; 50-99% stenosis in right mid superficial femoral artery; WBC 3.5. Course prolonged due to need for angiogram and Xarelto washout. Peripheral Artery Disease: Followed by Dr. Beaver ([facility]) and Dr. Sarabia (Vascular Surgery) [...] additional for acute pain. CAD: Followed by [facility] s/p 3 vessel coronary artery [...] GTT Medication Reconciliation: Reviewed using patient interview, psychology technician Current living situation: home Expected Disposition: [...] major joint deformity: RLE tired leg and oven drier tender to touch. Moving well withmild pain.: Decreased [...] Murray MD - 03/15/2025 9:18 AM EDT [facility] Inpatient Progress Note 03/15/2025 Tristin Powell 1940 [id number] Assessment/Plan: Tristin Hortensia Powell is a 85 y.o. male with a history of Peripheral Artery Disease s/p Bypass, Afib (Xarelto), Diastolic Heart Failure, Coronary Artery Disease s/p CABG, Hypertension, CKD III, COPD, ProstateCancer, and Insomnia. Patient had outpatient angiogram 03/12/25 with balloon angioplasty. He presented to [facility] ED on 03/14/2025 from Vascular Surgery clinic with intractable right foot pain. In ED: right YAMILE 0.5; 50-99% stenosis in right mid superficial femoral artery; WBC 3.5. Course prolonged due to need for angiogram and Xarelto washout. Peripheral Artery Disease: Followed by Dr. Beaver ([facility]) and Dr. Sarabia (Vascular Surgery) [...] additional for acute pain. CAD: Followed by [facility] s/p 3 vessel coronary artery [...] GTT Medication Reconciliation: Reviewed using patient interview, psychology technician Current living situation: home Expected Disposition: [...] major joint deformity: RLE tired leg and oven drier tender to touch. Moving well withmild pain.: Left [...] Vascular Cardiology Inpatient Follow-up Heart & Vascular [facility] 03/15/2025 Mirna Fenton CNP [facility] Patient: Tristin Powell Date of : 1940 (85 y.o.) PCP: Flash Lovelace MD Assessment/Plan: Carotid stenosis, asymptomatic, bilateral Assessment & Plan Asymptomatic. No hx of CVA Non-invasive Studies: Carotid Duplex (04/2024): Left ICA with mild <50% stenosis of heterogenous plaque. Right ICA with moderate 50-69% stenosis of heterogenous plaque Coronary artery disease involving coronary bypass graft of [place] heart without angina pectoris Assessment & Plan [...] Recently underwent RLE angio on 03/12/25 via [facility] in [place] Non-invasive Studies: RLE arterial duplex (03/14/25): 50-99% [...] RLE angiograms dated 03/12/25 and 10/12/23 from [facility]. Plan for RLE angio +/- intervention [...] Final Result by Interface, Lab Results In [place] Pyramis (03/15/2025 0701) Echocardiogram complete w contrast [...] 2 puff 2 puff Inhalation Q4H PRN GarrochalesMuna perez MD aluminum-magnesium hydroxide-simethicone (MAALOX PLUS) 200-200-20 mg/5 mL suspension 30 mL 30 mL Oral Q4H PRN Muna Otto MD aspirin EC tablet 81 mg 81 mg Oral Daily Demetrice Escobar, [facility] 81 mg at 03/14/25 170 atorvastatin (LIPITOR) tablet 80 mg 80 mg Oral Nightly GarrochalesMuna denise MD 80 mg at 03/14/252109 azelastine (ASTELIN) 137 mcg (0.1 %) nasal spray 1 spray 1 spray Each Nare Daily Muna Otto MD calcium carbonate (TUMS) chewable tablet 500 mg 500 mg Oral Daily PRN Muna Otto MD enoxaparin (LOVENOX) syringe 40 mg 40 mg Subcutaneous Daily GarrochalesMuna denise MD furosemide (LASIX) tablet 20 mg 20 mg Oral Every Other Day GarrochalesMuna denise MD HYDROmorphone (DILAUDID) injection 0.5 mg 0.5 mg Intravenous Q3H PRN GarrochalesMuna perez MD 0.5 mg at 03/14/252109 losartan (COZAAR) tablet 50 mg 50 mg Oral Daily with lunch Muna Otto MD melatonin Tab 5 mg 5 mg Oral Nightly PRN GarrochalesMuna perez MD metoprolol tartrate (LOPRESSOR) tablet 50 mg 50 mg Oral BID GarrochalesMuna denise MD 50 mg at 03/14/252109 naloxone (NARCAN) injection 0.1 mg 0.1 mg Intravenous PRN Muna Otto MD And naloxone (NARCAN) injection 0.4 mg 0.4 mg Intravenous PRN Muna tOto MD ondansetron (ZOFRAN) injection 4 mg 4 mg Intravenous Q6H PRN Muna Otto MD 4 mg at 03/14/25 2242 oxyCODONE-acetaminophen (PERCOCET) 5-325 mg per tablet 1 tablet 1 tablet Oral Q6H PRN Muna Otto MD pantoprazole (PROTONIX) EC tablet 40 mg 40 mg Oral Daily GarrochalesMuna perez MD polyethylene glycol (MIRALAX) powder 17 [...] mg at 03/14/25 2236 documented in this [id number] NoteMEDONE DISCHARGE SUMMARY Tristin Powell Account: [id number] Admitted: 03/14/2025 Discharge Date/Time: 03/21/25 / 3:57 PM Handoff to PCP Routine hospital follow up Outpatient follow-up with vascular surgery. Continued Xarelto. Clinical Summary Tristin Powell is a 85 y.o. male with a history of Peripheral Artery Disease s/p Bypass, Afib (Xarelto), Diastolic Heart Failure, Coronary Artery Disease s/p CABG, recent balloon angioplasty 03/12/2025,. presented to [facility] ED on 03/14/2025 from Vascular Surgery clinic with intractable right foot pain. Found to have critical right LE ischemia s/p distal SFA to peroneal bypass. Discharged home with outpatient therapy. Critical right lower limb ischemia: History of PAD. Follows Dr. Beaver ([facility]) and Dr. Sarabia (Vascular Surgery) [...] S/p IV pain meds. CAD: Followed by [facility] s/p 3 vessel coronary artery [...] Medications New Medications Details naloxone 4 mg/actuation [facility] Commonly known as: NARCAN Administer 1 spray [...] Reasons: visible water re (more content not included)...[facility]07-25-2025 Hospital course Narrative* Uri Voss, - 03/21/2025 3:45 PM EDT MEDONE DISCHARGE SUMMARY Tristin Powell Account: [id number] Admitted: 03/14/2025 Discharge Date/Time: 03/21/25 3:57 PM Handoff to PCP Routine hospital follow up Outpatient follow-up with vascular surgery. Continued Xarelto. Clinical Summary Tristin Powell is a 85 y.o. male with a history of Peripheral Artery Disease s/p Bypass, Afib (Xarelto), Diastolic Heart Failure, Coronary Artery Disease s/p CABG, recent balloon angioplasty 03/12/2025,. presented to [facility] ED on 03/14/2025 from Vascular Surgery clinic with intractable right foot pain. Found to have critical right LE ischemia s/p distal SFA to peroneal bypass. Discharged home with outpatient therapy. Critical right lower limb ischemia: History of PAD. Follows Dr. Beaver ([facility]) and Dr. Sarabia (Vascular Surgery) [...] S/p IV pain meds. CAD: Followed by [facility] s/p 3 vessel coronary artery [...] Medications New Medications Details naloxone 4 mg/actuation [facility] Commonly known as: NARCAN Administer 1 spray [...] Physician(s) Family: Flash Lovelace MD, , Address: [address] [place] [id number] Follow Up: Physicians, [facility] [place] [address] Follow up Thank you for allowing us to participate in your care. Please follow up with your vascular surgery team after discharge. Please call our office with any questions or concerns. OTHER - NOT IN LIST [place] [address] Additional Information: Patient seen and examined day of discharge. For more information regarding patient's care, including complete radiology reports, please contact [facility] at Patient instructions, including activity, were given to the patient/family at discharge. Please seethe After Visit Summary in the medical record for details. Time spent on discharge: > 30 minutes Completed by: Uri Voss DO on 03/21/25, 3:57 PM documented in this [id number] Hospital Discharge instructions * Discharge Instructions* Beena [...] if you need help quitting smoking: call 5-106-UVNS-NOW (1 -[phone]) or visit Smokefree.gov for more information. Who to Call: [facility] [place] [facility] Please call the office number at [phone] to confirm your follow-up appointment, or if you haveany questions or concerns. documented in this [id number] Consult note* Markel Dubose RN - 03/21/2025 9:32 AM EDTAssociated Order(s): IP CONSULT TO HOME HEALTH HUB HOME HEALTH CARE DISCHARGE PLAN Consulted for [facility] services: PT, OT Agency preference: [place] If discharge needs change, please reach out to liaison assigned on treatment team as hub is not notified of new consults once team is following. Thank you. Patients needing wound care or infusions (IVs or enteral feeds) should not discharge until [facility] is completely set up. AddendUm 1056: Rec'd call from Any, referral accepted. AVS updated. Addendum 8868: Rec'd msg from Richie MARIO, pt elects outpt therapy. [facility] discontinued and updatesent to Any. Is [facility] plan complete or pending? Pt elects outpt tx Name of accepting [facility] agency: [facility] - notified Referrals sent to: (names of agencies) Please be advised that agencies have 24 hours to respond to referrals. [facility] (did not send) [facility] Living [facility] (orders) placed? discontinued Verify demographics (discharge address) [address] [address] [place] What is the primary phone number? [phone] Who is your primary care physician? Flash [...] = Start of Care TCG = Teachable Chart Clerk [id number] Consult note* Markel Dubose RN - 03/21/2025 9:32 AM EDT Associated Order(s): IP CONSULT TO HOME HEALTH HUB HOME HEALTH CARE DISCHARGE PLAN Consulted for [facility] services: PT, OT Agency preference: [facility] If discharge needs change, please reach out to liaison assigned on treatment team as hub is not notified of new consults once team is following. Thank you. Patients needing wound care or infusions (IVs or enteral feeds) should not discharge until [facility] is completely set up. AddendUm 1055: Rec'd call from Any, referral accepted. AVS updated. Addendum 0094: Rec'd msg from Richie MARIO, pt elects outpt therapy. [facility] discontinued and updatesent to Any. Is [facility] plan complete or pending? Pt elects outpt tx Name of accepting [facility] - notified Referrals sent to: (names of agencies) Please be advised that agencies have 24 hours to respond to referrals. [facility] (did not send) [facility] Living [facility] (orders) placed? discontinued Verify demographics (discharge address) [address] [address] [place] What is the primary phone number? [phone] Who is your primary care physician? Flash [...] = Start of Care TCG = Teachable Chart Clerk * Richie Harrison RN - 03/19/2025 8:58 [...] 5 with ampac of 10. [facility], patient was agreeable to [facility] [...] intolerance. 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 The patient's compliance is a barrier, awareness of own capacity and performance is a office equipment technician to return to prior level of function. [...] Attention: Attends to quiet environment Hearing Status: [facility] Social Interaction: Appropriate, Cooperative, Impulsive [...] Supine: (Post-session Pt left in EOB position.) Glue Cook: bedrails Functional Transfers Sit to Stand: Minimal assist, Moderate assist, 2 person assist Glue Cook: wheeled walker Additional Functional Transfer Trial 2: Yes Sit to Stand Trial 2: Contact guard assist, Minimal assist Bed to Chair Trial 2: Contact guard assist, Minimal assist Glue Cook Trial 2: wheeled walker Home Living Obtained [...] walker.) Prior Level of Function Level of [place] - Transfers/Ambulation/Mobility: Independent with functional transfers Level of [place] - ADLs: Independent Level of [place] - Homemaking: Independent Driving: Patient drives Vocational: [...] Avascular necrosis of bone of hip ([facility]) Claudication COPD (chronic obstructive pulmonary disease) ([facility]) Coronary artery disease Herpes zoster Hyperlipidemia Hypertension PAD (peripheral artery disease) ([facility]) 01/21/2022 Posterior tibial tendinitis of right leg 11/07/2022 Prostate cancer ([facility]) Vascular disease Past Surgical History: Procedure Laterality Date 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/08/2018 Procedure: LEFT MIDFOOT AMPUTATION; Surgeon: Flynn Mann DPM; Location: [facility]; Service: Podiatry ANKLE SURGERY Left BYPASS FEMOROTIBIAL REPAIR/GRAFT Right 03/17/2025 Procedure: RIGHT FEMORAL TO TIBIAL BYPASS WITH ARM VEIN. Angiogram; Surgeon: Mohsen Sarabia MD; Location: [facility]; Service: Gen-Vascular; Laterality: Right; BYPASS PERONEAL FEMORAL Right 09/07/2018 Procedure: BYPASS PERONEAL FEMORAL, RIGHT SAPHENOUS VEIN HARVEST, COMPLETION ANGIOGRAM; Surgeon: Mohsen Sarabia MD; Location: [facility]; Service: Cardiovascular CARDIAC CATHETERIZATION Left 09/05/2018 Procedure: Angio Lower Extremity; Surgeon: Ben Hahn MD; Location: [facility]; Service: Cardiovascular CARDIAC SURGERY 2017 triple bypass [...] Plan: Transportation Type: Auto Discharge Plan Status: LINUX NETWORK ADMINISTRATOR consulted for discharge needs. PT recommending therapy 2-3 days per week. OT pending. LINUX NETWORK ADMINISTRATOR met with pt at bedside to discuss [facility] level of care. Pt agreeable HHC. Pt with no [preference of agency. Pt's son will be primary caregiver upon discharge and will transport pt home when medically ready. LINUX NETWORK ADMINISTRATOR confirmed pt demographics including address on file, [...] Assessment Limitations Including: Mechanical Barriers, Pain Are dietitian therapeutic Therapy Services Needed After Discharge: Yes Intensity of dietitian therapeutic Therapy: 2-3 days per week Anticipated Duration of dietitian therapeutic Therapy: Duration 10 - 30 days PT [...] Standing Balance - Static: Contact guard assist Glue Cook - Standing Static: wheeled walker Standing Balance - Dynamic: Contact guard assist Glue Cook - Standing Dynamic: same legal aid used for static standing tasks Bed Mobility Rolling: Supervision Supine to Sit: Supervision Sit to Supine: (patient sitting EOB) Glue Cook: bedrails Transfers Sit to Stand: Contact guard assist Glue Cook: wheeled walker Gait/Locomotion Gait Assistance: Contact guard [...] walker.) Prior Level of Function Level of [place] - Transfers/Ambulation/Mobility: Independent with community ambulation, Independent with household ambulation, Independent with functional transfers Level of [place] - ADLs: Independent Level of [place] - Homemaking: Independent Driving: Patient drives Vocational: [...] Avascular necrosis of bone of hip ([facility]) Claudication COPD (chronic obstructive pulmonary disease) ([facility]) Coronary artery disease Herpes zoster Hyperlipidemia Hypertension PAD (peripheral artery disease) ([facility]) 01/21/2022 Posterior tibial tendinitis of right leg 11/07/2022 Prostate cancer ([facility]) Vascular disease Past Surgical History: Procedure Laterality Date 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/08/2018 Procedure: LEFT MIDFOOT AMPUTATION; Surgeon: Flynn Mann DPM; Location: [facility]; Service: Podiatry ANKLE SURGERY Left BYPASS PERONEAL FEMORAL Right 09/07/2018 Procedure: BYPASS PERONEAL FEMORAL, RIGHT SAPHENOUS VEIN HARVEST, COMPLETION ANGIOGRAM; Surgeon: Mohsen Sarabia MD; Location: [facility]; Service: Cardiovascular CARDIAC CATHETERIZATION Left 09/05/2018 Procedure: Angio Lower Extremity; Surgeon: Ben Hahn MD; Location: [facility]; Service: Cardiovascular CARDIAC SURGERY 2017 triple bypass [...] Vascular Cardiology Inpatient Consult Heart & Vascular [facility] 03/14/2025 Demetrice Escobar, KAMARI [address] [id number] Patient: Tristin Powell Date of : 1940 [...] Recently underwent RLE angio on 03/12/25 via [facility] in [place] Non-invasive Studies: RLE arterial duplex (03/14/25): 50-99% [...] RLE angiograms dated 03/12/25 and 10/12/23 from [facility]. Will review non-invasive studies as obtained earlier today as well as [facility] RLE angiograms with PV attending. Final [...] underwent formal LE angio on 03/12/25 via [facility]. Follows with Dr. Juarez, cardiology, at [facility]. Last OV 11/2024. Son is present [...] was drawn out. Relevant Vascular History: 06/2024: [facility] demonstrating stable coronary artery disease. Patent [...] SVG to PDA) via [facility] 10/2007: [facility] with MARIA ESTHER to LAD and LCx Objective Imaging: I independently reviewed the non-invasive vascular studies and agree with the interpretation(s) ECG 12 Lead Final Result by Interface, Lab Results In [place] Pyramis (11/07/2022 1139) Echocardiogram complete w contrast [...] Avascular necrosis of bone of hip ([facility]) Claudication COPD (chronic obstructive pulmonary disease) ([facility]) Coronary artery disease Herpes zoster Hyperlipidemia Hypertension PAD (peripheral artery disease) ([facility]) 01/21/2022 Posterior tibial tendinitis of right leg 11/07/2022 Prostate cancer ([facility]) Vascular disease Past Surgical History: Procedure Laterality Date 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/08/2018 Procedure: LEFT MIDFOOT AMPUTATION; Surgeon: Flynn Mann DPM; Location: [facility]; Service: Podiatry ANKLE SURGERY Left BYPASS PERONEAL FEMORAL Right 09/07/2018 Procedure: BYPASS PERONEAL FEMORAL, RIGHT SAPHENOUS VEIN HARVEST, COMPLETION ANGIOGRAM; Surgeon: Mohsen Sarabia MD; Location: [facility]; Service: Cardiovascular CARDIAC CATHETERIZATION Left 09/05/2018 Procedure: Angio Lower Extremity; Surgeon: Ben Hahn MD; Location: [facility]; Service: Cardiovascular CARDIAC SURGERY 2017 triple bypass [...] to contact me, my mobile number is [phone]. Respectfully, Demetrice Martinez APRN [facility] Physicians [1] Social [...] He underwent angiography 2 days ago in [place] where hewas found to have progressive disease [...] Avascular necrosis of bone of hip ([facility]) Claudication COPD (chronic obstructive pulmonary disease) ([facility]) Coronary artery disease Herpes zoster Hyperlipidemia Hypertension PAD (peripheral artery disease) ([facility]) 01/21/2022 Posterior tibial tendinitis of right leg 11/07/2022 Prostate cancer ([facility]) Vascular disease Allergies: Doxycycline [...] artery as it enters the foot. Impression: [place] 4 critical limb threatening ischemia Advanced peripheral [...] vascular surgery colleagues I personally performed a [id number] diagnostic evaluation on this patient on the [...] 0.5 mg 0.5 mg Intravenous Q3H PRN GarrochalesMuna denise MD naloxone (NARCAN) injection 0.1 mg 0.1 mg Intravenous PRN Garrochales, Muna Bhatti MD And naloxone (NARCAN) injection 0.4 mg 0.4 mg Intravenous PRN GarrochalesMuna denise MD ondansetron (ZOFRAN) injection 4 mg 4 mg Intravenous Q6H PRN GarrochalesMuna denise MD oxyCODONE-acetaminophen (PERCOCET) 5-325 mg per tablet 1 tablet 1 tablet Oral Q6H PRN GarrochalesMuna perez MD sodium chloride (PF) (NS) flush [...] (2019, Cornell), left TMA who presented to [facility] on 03/14/2025 with worsening RLE pain [...] Beena Barraza MD General Surgery Resident, PGY-2 [facility] Please contact surgical administration intern environmental studies faculty member 5PM-6AM and weekends - #[phone] VTS Pager - #[phone] Admitted with these risk variables:None. Please see [...] Avascular necrosis of bone of hip ([facility]) Claudication COPD (chronic obstructive pulmonary disease) ([facility]) Coronary artery disease Herpes zoster Hyperlipidemia Hypertension PAD (peripheral artery disease) ([facility]) 01/21/2022 Posterior tibial tendinitis of right leg 11/07/2022 Prostate cancer ([facility]) Vascular disease Past Surgical History: Procedure Laterality Date AMPUTATION TRANSMETATARSAL Left 10/08/2018 Procedure: LEFT MIDFOOT AMPUTATION; Surgeon: Flynn Mann DPM; Location: [facility] OR; Service: Podiatry ANKLE SURGERY Left BYPASS PERONEAL FEMORAL Right 09/07/2018 Procedure: BYPASS PERONEAL FEMORAL, RIGHT SAPHENOUS VEIN HARVEST, COMPLETION ANGIOGRAM; Surgeon: Mohsen Sarabia MD; Location: [facility]; Service: Cardiovascular CARDIAC CATHETERIZATION Left 09/05/2018 Procedure: Angio Lower Extremity; Surgeon: Ben Hahn MD; Location: [facility]; Service: Cardiovascular CARDIAC SURGERY 2017 triple bypass [...] Resource Strain: Low Risk (06/21/2024) Received from [facility] Overall Financial Resource Strain (CARDIA) Difficulty of Paying Living Expenses: Not hard at all Food Insecurity: No Food Insecurity (06/21/2024) Received from [facility] Hunger Vital Sign Worried About Running Out of Food in the Last Year: Never true Ran Out of Food in the Last Year: Never true Transportation Needs: No Transportation Needs (06/21/2024) Received from [facility] PRAPARE - Transportation Lack of Transportation (Medical): No Lack of Transportation (Non-Medical): No Physical Activity: Insufficiently Active (06/21/2024) Received from [facility] Exercise Vital Sign Days of Exercise per Week: 7 days Minutes of Exercise per Session: 10 min Stress: No Stress Concern Present (06/21/2024) Received from [facility] [place] Citizen [place] of Occupational Health - Occupational Stress Questionnaire Feeling of Stress : Not at all Housing Stability: Low Risk (06/21/2024) Received from [facility] Housing Stability Vital Sign Unable [...] personally examined the patient and agree with resident/RESIDENT CARE DIRECTOR/PA assessment and plan with the following additional findings. Pt known to me with CLTI of the RLE with rest pain and early ischemic skin changes. Plan for R fem tib bypass on Monday for limb salvage documented in this [id number] Plan of care note* Plan of Care [...] Absence of pressure injury Outcome: Partially Met [id number] Miscellaneous Notes* Plan of Care - [place] [...] CABG, recent balloon angioplasty 03/12/2025,. presented to [facility] ED on 03/14/2025 from Vascular Surgery clinic with intractable right foot pain. Found to have critical right LE ischemia. S/p angiogram 03/17/25with R SFA to peroneal bypass. Past Medical History: Diagnosis Date Arthritis Avascular necrosis of bone of hip ([facility]) Claudication COPD (chronic obstructive pulmonary disease) ([facility]) Coronary artery disease Herpes zoster Hyperlipidemia Hypertension PAD (peripheral artery disease) ([facility]) 01/21/2022 Posterior tibial tendinitis of right leg 11/07/2022 Prostate cancer ([facility]) Vascular disease Past Surgical History: Procedure Laterality Date AMPUTATION TRANSMETATARSAL Left 10/08/2018 Procedure: LEFT MIDFOOT AMPUTATION; Surgeon: Flynn Mann DPM; Location: [facility] OR; Service: Podiatry ANKLE SURGERY Left BYPASS FEMOROTIBIAL REPAIR/GRAFT Right 03/17/2025 Procedure: RIGHT FEMORAL TO TIBIAL BYPASS WITH ARM VEIN. Angiogram; Surgeon: Mohsen Sarabia MD; Location: [facility]; Service: Gen-Vascular; Laterality: Right; BYPASS PERONEAL FEMORAL Right 09/07/2018 Procedure: BYPASS PERONEAL FEMORAL, RIGHT SAPHENOUS VEIN HARVEST, COMPLETION ANGIOGRAM; Surgeon: Mohsen Sarabia MD; Location: [facility]; Service: Cardiovascular CARDIAC CATHETERIZATION Left 09/05/2018 Procedure: Angio Lower Extremity; Surgeon: Ben Hahn MD; Location: [facility]; Service: Cardiovascular CARDIAC SURGERY 2017 triple bypass [...] No Nutrition Related Allergies noted Cultural or Catholic Dietary Needs :No Cultural or Catholic Dietary needs noted Difficulty Chewing or Swallowing: [...] Nightly Continuous Infusions: sodium chloride Serenity Wilson RD,LD,[facility] or in Gamify Secure Chat * Plan of Care - [...] EDT Brief Post Operative Note Patient Name: Trisitn Powell : 1940 (85 y.o.) Date of Service: 03/17/2025 [facility]: [id number] Procedure(s): RIGHT FEMORAL TO TIBIAL BYPASS WITH ARM VEIN. Angiogram Pre-Operative Diagnoses: * PERIPHERAL ARTERY DISEASE Post-Operative Diagnoses: same Surgeons and Role: * Mohsen Sarabia MD - Primary * Karina Orozco MD - Resident - Assisting Anesthesiologist: Serjio Olivarez MD; Muna Gil MD HOSPITALIST MEDICAL DIRECTOR: Viviana Dhillon CRNA Assembly Machine Set Up Mechanic: Lori Diaz RN Clinical Support Specialist: Jose C Ambrose, TECHNOLOGIST Assembly Machine Set Up Mechanic Relief: Millicent Cedeño RN; Arlene Watson RN Scrub Person Relief: Izabel Bosch RN Assembly Machine Set Up Mechanic Orientee: Kaylie Jason RN Assembly Machine Set Up Mechanic Preceptor: Izabel Bosch RN Scrub Person Preceptor: [...] Implant Name Type Inv. Item Serial No. Special Assemblies Supervisor Lot No. LRB No. Used Action HEMOSTAT 2 X 4IN SURGICEL FIBRILLAR - SNA HEMOSTAT 2 X 4IN SURGICEL FIBRILLAR NA ETHICON [id number] Right 1 Implanted SEALANT 10ML HEMOSTATIC MATRIX FAST PREP FLOSEAL W/RECOTHROM - [id number] SEALANT 10ML HEMOSTATIC MATRIX FAST PREP FLOSEAL W/RECOTHROM [email or web address] [id number] Right 1 Implanted Drain(s): Urethral Catheter Non-latex;Straight-tip [...] case in detail the patient and with Caitna, and agree with her note. The patient [...] - 03/14/2025 4:35 PM EDT Added to optical lab technician schedule for 03/17/25, with Dr. Mast for a RLE angio +/- intervention. Orders placed. Consent signed and given to optical lab technician. ASA and clopidogrel initiated. Again, no heparin gtt required unless needed in the setting of hx of paroxysmal a.fib (historicallyon Xarelto; however, has been held over the past week 2/[address] [facility] as performed on 03/12/25). Additionally, please [...] RLE angiogram from March 12, 2025 from [facility] sent electronically. This was sent to Juana Escobar NP. She was able to open and view. Images sent to appropriate staff per Juana Escobar CNP. Called and notified the patient's daughter that she does not have to get the disc from [facility] to [facility]. * Assessment & Plan Note - Demetrice [...] artery disease involving coronary bypass graft of [place] heart without angina pectoris S/p 3v CABG [...] Recently underwent RLE angio on 03/12/25 via [facility] in [place] Non-invasive Studies: RLE arterial duplex (03/14/25): 50-99% [...] statin therapies as prescribed. documented in this [id number] Initial evaluation note* Initial Assessments - Serenity [...] CABG, recent balloon angioplasty 03/12/2025,. presented to [facility] ED on 03/14/2025 from Vascular Surgery clinic with intractable right foot pain. Found to have critical right LE ischemia. S/p angiogram 03/17/25with R SFA to peroneal bypass. Past Medical History: Diagnosis Date Arthritis Avascular necrosis of bone of hip ([facility]) Claudication COPD (chronic obstructive pulmonary disease) ([facility]) Coronary artery disease Herpes zoster Hyperlipidemia Hypertension PAD (peripheral artery disease) ([facility]) 01/21/2022 Posterior tibial tendinitis of right leg 11/07/2022 Prostate cancer (HCC) Vascular disease Past Surgical History: Procedure Laterality Date AMPUTATION TRANSMETATARSAL Left 10/08/2018 Procedure: LEFT MIDFOOT AMPUTATION; Surgeon: Flynn Mann DPM; Location: [facility] OR; Service: Podiatry ANKLE SURGERY Left BYPASS FEMOROTIBIAL REPAIR/GRAFT Right 03/17/2025 Procedure: RIGHT FEMORAL TO TIBIAL BYPASS WITH ARM VEIN. Angiogram; Surgeon: Mohsen Sarabia MD; Location: [facility]; Service: Gen-Vascular; Laterality: Right; BYPASS PERONEAL FEMORAL Right 09/07/2018 Procedure: BYPASS PERONEAL FEMORAL, RIGHT SAPHENOUS VEIN HARVEST, COMPLETION ANGIOGRAM; Surgeon: Mohsen Sarabia MD; Location: [facility]; Service: Cardiovascular CARDIAC CATHETERIZATION Left 09/05/2018 Procedure: Angio Lower Extremity; Surgeon: Ben Hahn MD; Location: [facility]; Service: Cardiovascular CARDIAC SURGERY 2017 triple bypass [...] No Nutrition Related Allergies noted Cultural or Catholic Dietary Needs :No Cultural or Catholic Dietary needs noted Difficulty Chewing or Swallowing: [...] Nightly Continuous Infusions: sodium chloride Serenity Wilson RD,LD,[facility] or in Gamify Secure Chat [id number] [facility] Inpatient Progress Note 03/20/2025 Tristin Powell 1940 [id number] Assessment/Plan: Tristin Powell is a 85 y.o. male with a history of Peripheral Artery Disease s/p Bypass, Afib (Xarelto), Diastolic Heart Failure, Coronary Artery Disease s/p CABG, recent balloon angioplasty 03/12/2025,. presented to [facility] ED on 03/14/2025 from Vascular Surgery clinic with intractable right foot pain. Found to have critical right LE ischemia Critical right lower limb ischemia: History of PAD. Follows Dr. Beaver ([facility]) and Dr. Sarabia (Vascular Surgery) [...] S/p IV pain meds. CAD: Followed by [facility] Cardiology s/p 3 vessel coronary artery [...] xarelto Medication Reconciliation: Reviewed using patient interview, psychology technician Current living situation: home Expected Disposition: [...] major joint deformity: RLE tired leg and oven drier tender to touch. Moving well with mild [...] 4.86 4.34* 5.05 HG (more content not included)...[facility]07-24-2025 Note VASCULAR SURGERY PROGRESS NOTE Patient Name: [...] (2018, [place]), left TMA who presented to [facility] on 03/14/2025 with worsening RLE pain [...] TREV COLEMAN MD General Surgery Resident, PGY-1 [facility] Please contact surgical administration intern environmental studies faculty member 5PM-6AM and weekends - #[phone] TNS Pager - #[phone] Subjective NAEO. Has been ambulating. New bruising [...] reviewed AUTHENTICATED BY TREV COLEMAN ON 03/20/2025 07:05:30[facility] 03-20-2025 Plan of care note* Plan of [...] Absence of pressure injury Outcome: Partially Met [id number] Consult note* Richie Harrison RN - 03/19/2025 [...] 5 with ampac of 10. [facility], patient was agreeable to [facility] [...] ready for discharge. Assessment and Background Information: [id number] Consult note* Gina Anand - 03/19/2025 8:45 [...] 0% AM-PAC Daily Activity Raw Score: 17 AM-[facility] Daily Activity % Impaired: 50.11% Occupational Therapy [...] intolerance. 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 The patient's compliance is a barrier, awareness of own capacity and performance is a office equipment technician to return to prior level of function. [...] Supine: (Post-session Pt left in EOB position.) Glue Cook: bedrails Functional Transfers Sit to Stand: Minimal assist, Moderate assist, 2 person assist Glue Cook: wheeled walker Additional Functional Transfer Trial 2: Yes Sit to Stand Trial 2: Contact guard assist, Minimal assist Bed to Chair Trial 2: Contact guard assist, Minimal assist Glue Cook Trial 2: wheeled walker Home Living Obtained [...] walker.) Prior Level of Function Level of [place] - Transfers/Ambulation/Mobility: Independent with functional transfers Level of [place] - ADLs: Independent Level of [place] - Homemaking: Independent Driving: Patient drives Vocational: [...] Claudication COPD (chronic obstructive pulmonary disease) ([facility]) Coronary artery disease Herpes zoster Hyperlipidemia Hypertension PAD (peripheral artery disease) ([facility]) 01/21/2022 Posterior tibial tendinitis of right leg 11/07/2022 Prostate cancer ([facility]) Vascular disease Past Surgical History: Procedure Laterality Date AMPUTATION TRANSMETATARSAL Left 10/08/2018 Procedure: LEFT MIDFOOT AMPUTATION; Surgeon: Flynn Mann DPM; Location: [facility] OR; Service: Podiatry ANKLE SURGERY Left BYPASS FEMOROTIBIAL REPAIR/GRAFT Right 03/17/2025 Procedure: RIGHT FEMORAL TO TIBIAL BYPASS WITH ARM VEIN. Angiogram; Surgeon: Mohsen Sarabia MD; Location: [facility]; Service: Gen-Vascular; Laterality: Right; BYPASS PERONEAL FEMORAL Right 09/07/2018 Procedure: BYPASS PERONEAL FEMORAL, RIGHT SAPHENOUS VEIN HARVEST, COMPLETION ANGIOGRAM; Surgeon: Mohsen Sarabia MD; Location: [facility]; Service: Cardiovascular CARDIAC CATHETERIZATION Left 09/05/2018 Procedure: Angio Lower Extremity; Surgeon: Ben Hahn MD; Location: [facility]; Service: Cardiovascular CARDIAC SURGERY 2017 triple bypass [...] Alcantara OT at 03/19/2025 4:38 PM EDT [id number] [facility] Inpatient Progress Note 03/19/2025 Tristin Powell 1940 [id number] Assessment/Plan: Tristin Powell is a 85 y.o. male with a history of Peripheral Artery Disease s/p Bypass, Afib (Xarelto), Diastolic Heart Failure, Coronary Artery Disease s/p CABG, recent balloon angioplasty 03/12/2025,. presented to [facility] ED on 03/14/2025 from Vascular Surgery clinic with intractable right foot pain. Found to have critical right LE ischemia Critical right lower limb ischemia: History of PAD. Follows Dr. Beaver ([facility] Surgery) and Dr. Sarabia (Vascular Surgery) [...] added, wean as able. CAD: Followed by [facility]iology s/p 3 vessel coronary artery [...] xarelto Medication Reconciliation: Reviewed using patient interview, psychology technician Current living situation: home Expected Disposition: PT/OT rec up to 5 pt requesting home with [facility], following. Estimated discharge date: ~03/20/2025 Medically Ready [...] major joint deformity: RLE tired leg and oven drier tender to touch. Moving well with mild [...] WBC K/mcL 4.34* 5 (more content not included)...[facility] 03-19-2025 NoteVASCULAR SURGERY PROGRESS NOTE Patient Name: [...] (2018, [place]), left TMA who presented to [facility] on 03/14/2025 with worsening RLE pain [...] TREV COLEMAN MD General Surgery Resident, PGY-1 [facility] Please contact surgical administration intern environmental studies faculty member 5PM-6AM and weekends - #[phone] VTS Pager - #[phone] Subjective NAEO. Was able to get up [...] reviewed AUTHENTICATED BY TREV COLEMAN, ON 03/19/2025 07:06:48[facility] Inpatient Progress Note 03/18/2025 Tristin Bazan Sherry 1940 [id number] Assessment/Plan: Tristin Powell is a 85 y.o. male with a history of Peripheral Artery Disease s/p Bypass, Afib (Xarelto), Diastolic Heart Failure, Coronary Artery Disease s/p CABG, recent balloon angioplasty 03/12/2025,. presented to [facility] ED on 03/14/2025 from Vascular Surgery clinic with intractable right foot pain. Found to have critical right LE ischemia Critical right lower limb ischemia: History of PAD. Follows Dr. Beaver ([facility]) and Dr. Sarabia (Vascular Surgery) [...] dose. IV Dilaudid added. CAD: Followed by [facility] s/p 3 vessel coronary artery [...] per Medication Reconciliation: Reviewed using patient interview, psychology technician Current living situation: home Expected Disposition: [...] major joint deformity: RLE tired leg and oven drier tender to touch. Moving well with mild [...] Lab Units 03/18/25 04 (more content not included)...[facility]07-22-2025 Note VASCULAR SURGERY PROGRESS NOTE [id number] Reason for Consult: RLE rest pain ASSESSMENT AND PLAN Tristin Powell is a 85 y.o. male with history of arotic stenosis, HTN, dyslipidemia, HFpEF, ascending/thoracic aortic aneurysm (4.[address] dated 04/2024), CAD (NSTEMI; s/p 3v CABG), paroxysmal a.fib, aortic & mitral valve disease, COPD, CKD stage 3, PAD, s/p left fem to peroneal bypass (2018, [place]), left TMA who presented to [facility] on 03/14/2025 with worsening RLE pain [...] TREV COLEMAN MD General Surgery Resident, PGY-2 [facility] Please contact surgical administration intern environmental studies faculty member 5PM-6AM and weekends - #[phone] VTS Pager - #[phone] Subjective NAEO. Feels good this morning. Wants [...] reviewed AUTHENTICATED BY TREV COLEMAN, ON 03/18/2025 06:35:17[facility] 03-18-2025 History of Present illness Narrative* Brenna Galloway RN - 03/18/2025 5:36 AM EDT Pt seen by PV cardiology while at [facility]. Per Catina Calixto CNP, no [facility] cardiology follow up needed, ptto f/u with vascular surgery. documented in this [id number] Plan of care note* Plan of Care [...] Absence of pressure injury Outcome: Partially Met [id number] NoteVASCULAR SURGERY PROGRESS NOTE Patient Name: Tristin [...] (Jony, [place]), left TMA who presented to [facility] on 03/14/2025 with worsening RLE pain [...] Walker MD General Surgery Please contact surgical administration intern environmental studies faculty member 5PM-6AM and weekends VTS Pager - #[phone] SUBJECTIVE Patient is resting in bed with [...] AUTHENTICATED BY ABI WALKER, ON 03/18/2025 03:54:39[facility]07-21-2025 Procedure note* Brief Op Note - Karina Orozco MD - 03/17/2025 4:30 PM EDT Brief Post Operative Note Patient Name: Tristin Powell : 1940 (85 y.o.) Date of Service: 03/17/2025 CSN: [id number] Procedure(s): RIGHT FEMORAL TO TIBIAL BYPASS WITH ARM VEIN. Angiogram Pre-Operative Diagnoses: * PERIPHERAL ARTERY DISEASE Post-Operative Diagnoses: same Surgeons and Role: * Mohsen Sarabia MD - Primary * Karina Orozco MD - Resident - Assisting Anesthesiologist: Serjio Olivarez MD; Muna Gil MD HOSPITALIST MEDICAL DIRECTOR: Viviana Dhillon CRNA Assembly Machine Set Up Mechanic: Lori Diaz RN Clinical Support Specialist: Jose C Ambrose TECHNOLOGIST Assembly Machine Set Up Mechanic Relief: Millicent Cedeño RN; Arlene Watson RN Scrub Person Relief: Izabel Bosch RN Assembly Machine Set Up Mechanic Orientee: Kaylie Jason RN Assembly Machine Set Up Mechanic Preceptor: Izabel Bosch RN Scrub Person Preceptor: [...] Implant Name Type Inv. Item Serial No. Special Assemblies Supervisor Lot No. LRB No. Used Action HEMOSTAT 2 X 4IN SURGICEL FIBRILLAR - SNA HEMOSTAT 2 X 4IN SURGICEL FIBRILLAR NA ETHICON [id number] Right 1 Implanted SEALANT 10ML HEMOSTATIC MATRIX FAST PREP FLOSEAL W/RECOTHROM - [id number] SEALANT 10ML HEMOSTATIC MATRIX FAST PREP FLOSEAL W/RECOTHROM [email or web address] [id number] Right 1 Implanted Drain(s): Urethral Catheter Non-latex;Straight-tip [...] NO Karina Orozco MD 03/17/2025 4:30 PM [employer] Work Phone: 1(519) 375-866707-21-2025 Attending History and physical note* Mohsen Sarabia MD - 03/17/2025 11:36 AM EDT INTERVAL HISTORY AND PHYSICAL Patient Name: Tristin Powell Admit Date: [id number] MR #: [id number] : 1940 The H&P has been reviewed [...] (2018, [place]), left TMA who presented to [facility] on 03/14/2025 with worsening RLE pain [...] Beena Barraza MD General Surgery Resident, PGY-2 [facility] Please contact surgical administration intern environmental studies faculty member 5PM-6AM and weekends - #[phone] TNS Pager - #[phone] Admitted with these risk variables:None. Please see [...] Avascular necrosis of bone of hip ([facility]) Claudication COPD (chronic obstructive pulmonary disease) ([facility]) Coronary artery disease Herpes zoster Hyperlipidemia Hypertension PAD (peripheral artery disease) ([facility]) 01/21/2022 Posterior tibial tendinitis of right leg 11/07/2022 Prostate cancer ([facility]) Vascular disease Past Surgical History: Procedure Laterality Date AMPUTATION TRANSMETATARSAL Left 10/08/2018 Procedure: LEFT MIDFOOT AMPUTATION; Surgeon: Flynn Mann DPM; Location: [facility] OR; Service: Podiatry ANKLE SURGERY Left BYPASS PERONEAL FEMORAL Right 09/07/2018 Procedure: BYPASS PERONEAL FEMORAL, RIGHT SAPHENOUS VEIN HARVEST, COMPLETION ANGIOGRAM; Surgeon: Mohsen Sarabia MD; Location: [facility]; Service: Cardiovascular CARDIAC CATHETERIZATION Left 09/05/2018 Procedure: Angio Lower Extremity; Surgeon: Ben Hahn MD; Location: [facility]; Service: Cardiovascular CARDIAC SURGERY 2017 triple bypass [...] Resource Strain: Low Risk (06/21/2024) Received from [facility] Overall Financial Resource Strain (CARDIA) Difficulty of Paying Living Expenses: Not hard at all Food Insecurity: No Food Insecurity (06/21/2024) Received from [facility] Hunger Vital Sign Worried About Running Out of Food in the Last Year: Never true Ran Out of Food in the Last Year: Never true Transportation Needs: No Transportation Needs (06/21/2024) Received from [facility] PRAPARE - Transportation Lack of Transportation (Medical): No Lack of Transportation (Non-Medical): No Physical Activity: Insufficiently Active (06/21/2024) Received from [facility] Exercise Vital Sign Days of Exercise per Week: 7 days Minutes of Exercise per Session: 10 min Stress: No Stress Concern Present (06/21/2024) Received from [facility] [place] Citizen [place] of Occupational Health - Occupational Stress Questionnaire Feeling of Stress : Not at all Housing Stability: Low Risk (06/21/2024) Received from [facility] Housing Stability Vital Sign Unable to Pay for Housing in the Last Year: No Number of Times Moved in the Last Year: 0 Homeless in the Last Year: No Cosigned by Mohsen Sarabia MD at 03/16/2025 10:33 AM EDT [employer] Work Phone: 1(715) 528-545507-21-2025 History and physical note* Mohsen Sarabia MD - 03/17/2025 11:36 AM EDT INTERVAL HISTORY AND PHYSICAL Patient Name: Tristin Powell Admit Date: [id number] MR #: [id number] : 1940 The H&P has been reviewed [...] (2018, [place]), left TMA who presented to [facility] on 03/14/2025 with worsening RLE pain [...] Beena Barraza MD General Surgery Resident, PGY-2 [facility] Please contact surgical administration intern environmental studies faculty member 5PM-6AM and weekends - #[phone] VTS Pager - #[phone] Admitted with these risk variables:None. Please see [...] Claudication COPD (chronic obstructive pulmonary disease) ([facility]) Coronary artery disease Herpes zoster Hyperlipidemia Hypertension PAD (peripheral artery disease) ([facility]) 01/21/2022 Posterior tibial tendinitis of right leg 11/07/2022 Prostate cancer (HCC) Vascular disease Past Surgical History: Procedure Laterality Date AMPUTATION TRANSMETATARSAL Left 10/08/2018 Procedure: LEFT MIDFOOT AMPUTATION; Surgeon: Flynn Mann DPM; Location: [facility]; Service: Podiatry ANKLE SURGERY Left BYPASS PERONEAL FEMORAL Right 09/07/2018 Procedure: BYPASS PERONEAL FEMORAL, RIGHT SAPHENOUS VEIN HARVEST, COMPLETION ANGIOGRAM; Surgeon: Mohsen Sarabia MD; Location: [facility]; Service: Cardiovascular CARDIAC CATHETERIZATION Left 09/05/2018 Procedure: Angio Lower Extremity; Surgeon: Ben Hahn MD; Location: [facility]; Service: Cardiovascular CARDIAC SURGERY 2017 triple bypass [...] Resource Strain: Low Risk (06/21/2024) Received from [facility] Overall Financial Resource Strain (CARDIA) Difficulty of Paying Living Expenses: Not hard at all Food Insecurity: No Food Insecurity (06/21/2024) Received from [facility] Hunger Vital Sign Worried About Running Out of Food in the Last Year: Never true Ran Out of Food in the Last Year: Never true Transportation Needs: No Transportation Needs (06/21/2024) Received from [facility] PRAPARE - Transportation Lack of Transportation (Medical): No Lack of Transportation (Non-Medical): No Physical Activity: Insufficiently Active (06/21/2024) Received from [facility] Exercise Vital Sign Days of Exercise per Week: 7 days Minutes of Exercise per Session: 10 min Stress: No Stress Concern Present (06/21/2024) Received from [facility] [place] of Occupational Health - Occupational Stress Questionnaire Feeling of Stress : Not at all Housing Stability: Low Risk (06/21/2024) Received from [facility] Housing Stability Vital Sign Unable to Pay for Housing in the Last Year: No Number of Times Moved in the Last Year: 0 Homeless in the Last Year: No Cosigned by Mohsen Sarabia MD at 03/16/2025 10:33 AM EDT * Muna Otto MD - 03/14/2025 1:21 PM EDT [facility] and Physical Note 03/14/25 Tristin Powell 1940 [id number] Assessment/Plan: Tristin Powell is a 85 y.o. male with a history of Peripheral Artery Disease s/p Bypass, Afib (Xarelto), Diastolic Heart Failure, Coronary Artery Disease s/p CABG, Hypertension, CKD III, COPD, ProstateCancer, and Insomnia. Patient had outpatient angiogram 03/12/25 with balloon angioplasty. He presented to [facility] ED on 03/14/2025 from Vascular Surgery clinic with intractable right foot pain. In ED: right YAMILE 0.5; 50-99% stenosis in right mid superficial femoral artery; WBC 3.5. Course prolonged due to need for angiogram and Xarelto washout. Peripheral Artery Disease: Followed by Dr. Beaver ([facility]) and Dr. Sarabia (Vascular Surgery) [...] additional for acute pain. CAD: Followed by [facility] s/p 3 vessel coronary artery bypass grafting in 2017 and 7 stents. Chronic Diastolic Heart Failure: TTE 04/2024: LVEF 55% grade 1 diastolic dysfunction, moderate aortic regurgitation, moderate mitral regurgitation, mild tricuspid regurgitation. Appeared euvolemic on admission. Continued home losartan and lasix every other day. Paroxysmal Afib: [id number] of 5. Xarelto as above (no indication [...] lovenox. Medication Reconciliation: Reviewed using patient interview, psychology technician Current living situation: home Expected Disposition: [...] does pretty active stuff, able to goout [employer]. In last 1-2 months getting more [...] personally discussed with Juana (Peripheral Vascular Cardiology [facility]) and Dr. Barraza (Vascular Surgery) - likely angiogram on Monday; no surgical intervention. ROS: 10 systems were reviewed and negative, except as noted above. Past Medical, Surgical, Social, Family History: Past Medical History: Diagnosis Date Arthritis Avascular necrosis of bone of hip (HCC) Claudication COPD (chronic obstructive pulmonary disease) ([facility]) Coronary artery disease Herpes zoster Hyperlipidemia Hypertension PAD (peripheral artery disease) ([facility]) 01/21/2022 Posterior tibial tendinitis of right leg 11/07/2022 Prostate cancer (HCC) Vascular disease Past Surgical History: Procedure Laterality Date AMPUTATION TRANSMETATARSAL Left 10/08/2018 Procedure: LEFT MIDFOOT AMPUTATION; Surgeon: Flynn Mann DPM; Location: [facility] OR; Service: Podiatry ANKLE SURGERY Left BYPASS PERONEAL FEMORAL Right 09/07/2018 Procedure: BYPASS PERONEAL FEMORAL, RIGHT SAPHENOUS VEIN HARVEST, COMPLETION ANGIOGRAM; Surgeon: Mohsen Sarabia MD; Location: [facility]; Service: Cardiovascular CARDIAC CATHETERIZATION Left 09/05/2018 Procedure: Angio Lower Extremity; Surgeon: Ben Hahn MD; Location: [facility]; Service: Cardiovascular CARDIAC SURGERY 2017 triple bypass [...] not hesitate to contact me via the [facility] Directory if any errorhas made critical portions of the note difficult to interpret. [1] Social History Socioeconomic History Marital status: Tobacco Use Smoking status: Never Smokeless tobacco: Never Vaping Use Vaping status: Never Used Substance and Sexual Activity Alcohol use: Not Currently Drug use: Never Sexual activity: Not Currently Social Drivers of Health Financial Resource Strain: Low Risk (06/21/2024) Received from [facility] Overall Financial Resource Strain (CARDIA) Difficulty of Paying Living Expenses: Not hard at all Food Insecurity: No Food Insecurity (06/21/2024) Received from [facility] Hunger Vital Sign Worried About Running Out of Food in the Last Year: Never true Ran Out of Food in the Last Year: Never true Transportation Needs: No Transportation Needs (06/21/2024) Received from [facility] PRAPARE - Transportation Lack of Transportation (Medical): No Lack of Transportation (Non-Medical): No Physical Activity: Insufficiently Active (06/21/2024) Received from [facility] Exercise Vital Sign Days of Exercise per Week: 7 days Minutes of Exercise per Session: 10 min Stress: No Stress Concern Present (06/21/2024) Received from [facility] [place] of Occupational Health - Occupational Stress Questionnaire Feeling of Stress : Not at all Housing Stability: Low Risk (06/21/2024) Received from [facility] Housing Stability Vital Sign Unable to Pay for Housing in the Last Year: No Number of Times Moved in the Last Year: 0 Homeless in the Last Year: No documented in this [id number] Progress note* Quick Note - ByCatian whitney, HEALTHCARE OR MEDICAL - 03/17/2025 9:24 AM EDT Asked to [...] available as needed for any cardiac issues. [id number] [facility]Med[facility] Inpatient Progress Note 03/17/2025 Tristin Powell 1940 [id number] Assessment/Plan: Tristin Powell is a 85 y.o. male with a history of Peripheral Artery Disease s/p Bypass, Afib (Xarelto), Diastolic Heart Failure, Coronary Artery Disease s/p CABG, recent balloon angioplasty 03/12/2025,. presented to [facility] ED on 03/14/2025 from Vascular Surgery clinic with intractable right foot pain. Found to have critical right LE ischemia Critical right lower limb ischemia: History of PAD. Follows Dr. Beaver ([facility]) and Dr. Sarabia (Vascular Surgery) [...] dose. IV Dilaudid added. CAD: Followed by [facility] s/p 3 vessel coronary artery [...] per Medication Reconciliation: Reviewed using patient interview, psychology technician Current living situation: home Expected Disposition: [...] major joint deformity: RLE tired leg and oven drier tender to touch. Moving well with mild [...] mg Oral After evening (more content not included)...[facility]07-21-2025 Note* [facility] - Yolanda Mcgee, PT - 03/17/2025 7:25 AM EDT PHYSICAL THERAPY VISIT VARIANCE NOTE Attempted to see patient at this time, but unable secondary to: Awaiting Medical Clearance (comment) (scheduled for OR today). Will follow up as appropriate. [id number] Note* [facility] - Demetrice Rivera OT - 03/17/2025 7:22 AM EDT OCCUPATIONAL THERAPY VISIT VARIANCE NOTE Attempted to see patient at this time, but unable secondary to: Awaiting Medical Clearance (Pending OR today). Will follow up as appropriate. [id number] NoteVASCULAR SURGERY PROGRESS NOTE Patient Name: Tristin [...] (Cornell Borges), left TMA who presented to [facility] on 03/14/2025 with worsening RLE pain [...] Beena Barraza MD General Surgery Resident, PGY-2 [facility] Please contact surgical administration intern environmental studies faculty member 5PM-6AM and weekends - #[phone] VTS Pager - #[phone] Subjective NAEO. Is ready for surgery tomorrow, [...] reviewed AUTHENTICATED BY BEENA BARRAZA, ON 03/16/2025 11:03:23[facility]07-20-2025 NoteEndovascular team note: I have seen and [...] option. AUTHENTICATED BY MARY MAST, ON 03/16/2025 10:52:42[facility]07-20-2025 [facility] Inpatient Progress Note 03/16/2025 Tristin Powell 1940 [id number] Assessment/Plan: Tristin Powell is a 85 y.o. male with a history of Peripheral Artery Disease s/p Bypass, Afib (Xarelto), Diastolic Heart Failure, Coronary Artery Disease s/p CABG, Hypertension, CKD III, COPD, Prostate Cancer, and Insomnia. Patient had outpatient angiogram 03/12/25 with balloon angioplasty. He presented to [facility] ED on 03/14/2025 from Vascular Surgery clinic with intractable right foot pain. In ED: right YAMILE 0.5; 50-99% stenosis in right mid superficial femoral artery; WBC 3.5. Course prolonged due to need for angiogram and Xarelto washout. Peripheral Artery Disease: Followed by Dr. Beaver ([facility]) and Dr. Sarabia (Vascular Surgery) [...] additional for acute pain. CAD: Followed by [facility] s/p 3 vessel coronary artery [...] GTT Medication Reconciliation: Reviewed using patient interview, psychology technician Current living situation: home Expected Disposition: [...] major joint deformity: RLE tired leg and oven drier tender to touch. Moving well with mild [...] K/mcL 159 -- 144* (more content not included)...[facility] 03-15-2025 Progress note* Quick Note - Yarely [...] Verified by note author and VAN Jean. [id number] Consult note* Joanna Prakash LSW - 03/15/2025 [...] Plan: Transportation Type: Auto Discharge Plan Status: LINUX NETWORK ADMINISTRATOR consulted for discharge needs. PT recommending therapy 2-3 days per week. OT pending. LINUX NETWORK ADMINISTRATOR met with pt at bedside to discuss HHC level of care. Pt agreeable HHC. Pt with no [preference of agency. Pt's son will be primary caregiver upon discharge and will transport pt home when medically ready. LINUX NETWORK ADMINISTRATOR confirmed pt demographics including address on file, [...] impact how we deliver your care?: No [id number] [facility] Inpatient Progress Note 03/15/2025 Tristin Powell 1940 [id number] Assessment/Plan: Tristin Powell is a 85 y.o. male with a history of Peripheral Artery Disease s/p Bypass, Afib (Xarelto), Diastolic Heart Failure, Coronary Artery Disease s/p CABG, Hypertension, CKD III, COPD, Prostate Cancer, and Insomnia. Patient had outpatient angiogram 03/12/25 with balloon angioplasty. He presented to [facility] ED on 03/14/2025 from Vascular Surgery clinic with intractable right foot pain. In ED: right YAMILE 0.5; 50-99% stenosis in right mid superficial femoral artery; WBC 3.5. Course prolonged due to need for angiogram and Xarelto washout. Peripheral Artery Disease: Followed by Dr. Beaver ([facility]) and Dr. Sarabia (Vascular Surgery) [...] additional for acute pain. CAD: Followed by [facility] s/p 3 vessel coronary artery [...] GTT Medication Reconciliation: Reviewed using patient interview, psychology technician Current living situation: home Expected Disposition: [...] major joint deformity: RLE tired leg and oven drier tender to touch. Moving well with mild [...] HGB g/dL 11.7* 13.2* (more content not included)...[facility]07-19-2025 Consult note* Nataly Shin, PT - 03/15/2025 9:15 AM EDT Physical Therapy PHYSICAL THERAPY EVALUATION and TREATMENT NOTE PHYSICAL THERAPY EVALUATION Skilled Therapy Needs After Discharge Anticipate Resolution of Current Assessment Limitations Including: Mechanical Barriers, Pain Are dietitian therapeutic Therapy Services Needed After Discharge: Yes Intensity of dietitian therapeutic Therapy: 2-3 days per week Anticipated Duration of dietitian therapeutic Therapy: Duration 10 - 30 days PT [...] Standing Balance - Static: Contact guard assist Glue Cook - Standing Static: wheeled walker Standing Balance - Dynamic: Contact guard assist Glue Cook - Standing Dynamic: same legal aid used for static standing tasks Bed Mobility Rolling: Supervision Supine to Sit: Supervision Sit to Supine: (patient sitting EOB) Glue Cook: bedrails Transfers Sit to Stand: Contact guard assist Glue Cook: wheeled walker Gait/Locomotion Gait Assistance: Contact guard [...] walker.) Prior Level of Function Level of [place] - Transfers/Ambulation/Mobility: Independent with community ambulation, Independent with household ambulation, Independent with functional transfers Level of [place] - ADLs: Independent Level of [place] - Homemaking: Independent Driving: Patient drives Vocational: [...] Avascular necrosis of bone of hip ([facility]) Claudication COPD (chronic obstructive pulmonary disease) ([facility]) Coronary artery disease Herpes zoster Hyperlipidemia Hypertension PAD (peripheral artery disease) ([facility]) 01/21/2022 Posterior tibial tendinitis of right leg 11/07/2022 Prostate cancer ([facility]) Vascular disease Past Surgical History: Procedure Laterality Date AMPUTATION TRANSMETATARSAL Left 10/08/2018 Procedure: LEFT MIDFOOT AMPUTATION; Surgeon: Flynn Mann DPM; Location: [facility] OR; Service: Podiatry ANKLE SURGERY Left BYPASS PERONEAL FEMORAL Right 09/07/2018 Procedure: BYPASS PERONEAL FEMORAL, RIGHT SAPHENOUS VEIN HARVEST, COMPLETION ANGIOGRAM; Surgeon: Mohsen Sarabia MD; Location: [facility]; Service: Cardiovascular CARDIAC CATHETERIZATION Left 09/05/2018 Procedure: Angio Lower Extremity; Surgeon: Ben Hahn MD; Location: [facility]; Service: Cardiovascular CARDIAC SURGERY 2017 triple bypass [...] hospital or completion of Physical Therapy Plan. [id number] NotePeripheral Vascular Cardiology Inpatient Follow-up Heart & Vascular [facility] 03/15/2025 Mirna Fenton [facility] Patient: Tristin Powell Date of : 1940 (85 y.o.) PCP: Flash Lovelace MD Assessment/Plan: Carotid stenosis, asymptomatic, bilateral Assessment & Plan Asymptomatic. No hx of CVA Non-invasive Studies: Carotid Duplex (04/2024): Left ICA with mild <50% stenosis of heterogenous plaque. Right ICA with moderate 50-69% stenosis of heterogenous plaque Coronary artery disease involving coronary bypass graft of [place] heart without angina pectoris Assessment & Plan [...] Recently underwent RLE angio on 03/12/25 via [facility] in [place] Non-invasive Studies: RLE arterial duplex (03/14/25): 50-99% [...] RLE angiograms dated 03/12/25 and 10/12/23 from [facility]. Plan for RLE angio +/- intervention [...] Final Result by Interface, Lab Results In [place] [facility] (03/15/2025 0701) Echocardiogram complete w contrast [...] Oral Q4H While a (more content not included)...[facility]07-18-2025 Emergency department Note* Tiburcio Damon RN - 03/14/2025 5:53 PM EDT Pt placed on 2L NC now [id number] Emergency department Note* Tiburcio Damon RN - 03/14/2025 5:53 PM EDT Pt placed on 2L NC now * Lorena Bethea - 03/14/2025 1:14 PM EDT MEDONE to write admission orders [id number] * Elaine Macdonald MD - 03/14/2025 12:26 PM EDT ED PROVIDER NOTE [facility] EMERGENCY DEPARTMENT Patient Name: Tristin [...] Course User Index [EK] Elaine Macdonald MD [facility] Data: I saw and evaluated the [...] 113.4 kg (250 lb) - Refer to [facility] section above for additional physical exam [...] Avascular necrosis of bone of hip ([facility]) Claudication COPD (chronic obstructive pulmonary disease) ([facility]) Coronary artery disease Herpes zoster Hyperlipidemia Hypertension PAD (peripheral artery disease) ([facility]) 01/21/2022 Posterior tibial tendinitis of right leg 11/07/2022 Prostate cancer ([facility]) Vascular disease Past Surgical History: Procedure Laterality Date AMPUTATION TRANSMETATARSAL Left 10/08/2018 Procedure: LEFT MIDFOOT AMPUTATION; Surgeon: Flynn Mann DPM; Location: [facility] OR; Service: Podiatry ANKLE SURGERY Left BYPASS PERONEAL FEMORAL Right 09/07/2018 Procedure: BYPASS PERONEAL FEMORAL, RIGHT SAPHENOUS VEIN HARVEST, COMPLETION ANGIOGRAM; Surgeon: Mohsen Sarabia MD; Location: [facility]; Service: Cardiovascular CARDIAC CATHETERIZATION Left 09/05/2018 Procedure: Angio Lower Extremity; Surgeon: Ben Hahn MD; Location: [facility]; Service: Cardiovascular CARDIAC SURGERY 2017 triple bypass [...] correspondence this note was partially generated by [employer] voice recognition software and is inherently subject to errors including those of syntax and sound-alike substitutions which may escape proofreading. In such instances, original meaning may be extrapolated by contextual derivation. Elaine Macdonald MD 03/14/25 2463 [1] Social History Socioeconomic History Marital status: Tobacco Use Smoking status: Never Smokeless tobacco: Never Vaping Use Vaping status: Never Used Substance and Sexual Activity Alcohol use: Not Currently Drug use: Never Sexual activity: Not Currently Social Drivers of Health Financial Resource Strain: Low Risk (06/21/2024) Received from [facility] Overall Financial Resource Strain (CARDIA) Difficulty of Paying Living Expenses: Not hard at all Food Insecurity: No Food Insecurity (06/21/2024) Received from [facility] Hunger Vital Sign Worried About Running Out of Food in the Last Year: Never true Ran Out of Food in the Last Year: Never true Transportation Needs: No Transportation Needs (06/21/2024) Received from [facility] PRAPARE - Transportation Lack of Transportation (Medical): No Lack of Transportation (Non-Medical): No Physical Activity: Insufficiently Active (06/21/2024) Received from [facility] Exercise Vital Sign Days of Exercise per Week: 7 days Minutes of Exercise per Session: 10 min Stress: No Stress Concern Present (06/21/2024) Received from [facility] [place] of Occupational Health - Occupational Stress Questionnaire Feeling of Stress : Not at all Housing Stability: Low Risk (06/21/2024) Received from [facility] Housing Stability Vital Sign Unable [...] All Patient Name: Tristin Powell MR #: [id number] Subjective: office nurse received call from daughter who expressed concern about patient losing hisfoot- he is in dire pain and his toes on his right foot are turning purple. Dr. Sarabia requested USDuplex Arterial RLE and ABIs, and here for office visit today documented in this [id number] Progress note* Quick Note - Demetrice Escobar CNP - 03/14/2025 4:35 PM EDT Added to optical lab technician schedule for 03/17/25, with Dr. Mast for a RLE angio +/- intervention. Orders placed. Consent signed and given to optical lab technician. ASA and clopidogrel initiated. Again, no heparin gtt required unless needed in the setting of hx of paroxysmal a.fib (historicallyon Xarelto; however, has been held over the past week 2/[address] [facility] as performed on 03/12/25). Additionally, please [...] grossly insensate from toes to the ankle. [id number] Progress note* Quick Note - Iris Baxter RN - 03/14/2025 3:49 PM EDT This nurse was able to get RLE angiogram from March 12, 2025 from [facility] sent electronically. This was sent to Juana Escobar NP. She was able to open and view. Images sent to appropriate staff per Juana Escobar CNP. Called and notified the patient's daughter that she does not have to get the disc from [facility] to [facility]. [id number] Evaluation + Plan note* Assessment & Plan Note - Demetrice Escobar CNP - 03/14/2025 3:32 PM EDTAssociated Problem(s): Carotid stenosis, asymptomatic, bilateral Asymptomatic. No hx of CVA Non-invasive Studies: Carotid Duplex (04/2024): Left ICA with mild <50% stenosis of heterogenous plaque. Right ICA with moderate 50-69% stenosis of heterogenous plaque [id number] Evaluation + Plan note* Assessment & Plan Note - Demetrice Escobar CNP - 03/14/2025 3:30 PM EDTAssociated Problem(s): Coronary artery disease involving coronary bypass graft of [place] heart without angina pectoris S/p 3v CABG in 2017 Asymptomatic [id number] Evaluation + Plan note* Assessment & Plan [...] Recently underwent RLE angio on 03/12/25 via [facility] in [place] Non-invasive Studies: RLE arterial duplex (03/14/25): 50-99% [...] will continue to monitor over the weekend [id number] Evaluation + Plan note* Assessment & Plan Note - Demetrice Escobar CNP - 03/14/2025 3:18 PM EDTAssociated Problem(s): PAD (peripheral artery disease) (HCC) Longstanding, significant atherosclerotic disease with history of multiple endovascular and surgical interventions as outlined in the body of this note, please reference Plan: Continue ASA and statin therapies as prescribed. [id number] Consult note* Demetrice Escobar CNP - 03/14/2025 1:33 PM EDTAssociated Order(s): IP CONSULT TO CARDIOLOGY - PERIPHERAL VASC DISEASE Images from the original note were not included. Peripheral Vascular Cardiology Inpatient Consult Heart & Vascular [facility] 03/14/2025 Demetrice Escobar CNP [address] [facility] [id number] Patient: Tristin Powell Date of : 1940 [...] Recently underwent RLE angio on 03/12/25 via [facility] in [place] Non-invasive Studies: RLE arterial duplex (03/14/25): 50-99% [...] RLE angiograms dated 03/12/25 and 10/12/23 from [facility]. Will review non-invasive studies as obtained earlier today as well as [facility] RLE angiograms with PV attending. Final [...] underwent formal LE angio on 03/12/25 via [facility]. Follows with Dr. Juarez, cardiology, at [facility]. Last OV 11/2024. Son is present [...] was drawn out. Relevant Vascular History: 06/2024: [facility] demonstrating stable coronary artery disease. Patent [...] SVG to PDA) via [facility] 10/2007: [facility] with MARIA ESTHER to LAD and LCx Objective Imaging: I independently reviewed the non-invasive vascular studies and agree with the interpretation(s) ECG 12 Lead Final Result by Interface, Lab Results In [place] [facility] (11/07/2022 1139) Echocardiogram complete w contrast [...] Avascular necrosis of bone of hip ([facility]) Claudication COPD (chronic obstructive pulmonary disease) ([facility]) Coronary artery disease Herpes zoster Hyperlipidemia Hypertension PAD (peripheral artery disease) ([facility]) 01/21/2022 Posterior tibial tendinitis of right leg 11/07/2022 Prostate cancer (HCC) Vascular disease Past Surgical History: Procedure Laterality Date AMPUTATION TRANSMETATARSAL Left 10/08/2018 Procedure: LEFT MIDFOOT AMPUTATION; Surgeon: Flynn Mann DPM; Location: [facility] OR; Service: Podiatry ANKLE SURGERY Left BYPASS PERONEAL FEMORAL Right 09/07/2018 Procedure: BYPASS PERONEAL FEMORAL, RIGHT SAPHENOUS VEIN HARVEST, COMPLETION ANGIOGRAM; Surgeon: Mohsen Sarabia MD; Location: [facility]; Service: Cardiovascular CARDIAC CATHETERIZATION Left 09/05/2018 Procedure: Angio Lower Extremity; Surgeon: Ben Hahn MD; Location: [facility]; Service: Cardiovascular CARDIAC SURGERY 2017 triple bypass [...] to contact me, my mobile number is [phone]. Respectfully, Demetrice Martinez APRN [facility] [1] Social [...] He underwent angiography 2 days ago in [place] where hewas found to have progressive disease [...] Avascular necrosis of bone of hip ([facility]) Claudication COPD (chronic obstructive pulmonary disease) ([facility]) Coronary artery disease Herpes zoster Hyperlipidemia Hypertension PAD (peripheral artery disease) ([facility]) 01/21/2022 Posterior tibial tendinitis of right leg 11/07/2022 Prostate cancer ([facility]) Vascular disease Allergies: Doxycycline [...] artery as it enters the foot. Impression: [place] 4 critical limb threatening ischemia Advanced peripheral [...] vascular surgery colleagues I personally performed a [id number] diagnostic evaluation on this patient on the [...] mL vaccine urea (CARMOL) 40 % Crea [id number] History and physical note* Muna Otto MD - 03/14/2025 1:21 PM EDT [facility] History and Physical Note 03/14/25 Tristin Powell 1940 [id number] Assessment/Plan: Tristin Powell is a 85 y.o. male with a history of Peripheral Artery Disease s/p Bypass, Afib (Xarelto), Diastolic Heart Failure, Coronary Artery Disease s/p CABG, Hypertension, CKD III, COPD, ProstateCancer, and Insomnia. Patient had outpatient angiogram 03/12/25 with balloon angioplasty. He presented to [facility] ED on 03/14/2025 from Vascular Surgery clinic with intractable right foot pain. In ED: right YAMILE 0.5; 50-99% stenosis in right mid superficial femoral artery; WBC 3.5. Course prolonged due to need for angiogram and Xarelto washout. Peripheral Artery Disease: Followed by Dr. Beaver ([facility]) and Dr. Sarabia (Vascular Surgery) [...] additional for acute pain. CAD: Followed by [facility] s/p 3 vessel coronary artery bypass grafting in 2017 and 7 stents. Chronic Diastolic Heart Failure: TTE 04/2024: LVEF 55% grade 1 diastolic dysfunction, moderate aortic regurgitation, moderate mitral regurgitation, mild tricuspid regurgitation. Appeared euvolemic on admission. Continued home losartan and lasix every other day. Paroxysmal Afib: [id number] of 5. Xarelto as above (no indication [...] lovenox. Medication Reconciliation: Reviewed using patient interview, psychology technician Current living situation: home Expected Disposition: [...] personally discussed with [place] (Peripheral Vascular Cardiology [facility]) and Dr. Barraza (Vascular Surgery) - likely angiogram on Monday; no surgical intervention. ROS: 10 systems were reviewed and negative, except as noted above. Past Medical, Surgical, Social, Family History: Past Medical History: Diagnosis Date Arthritis Avascular necrosis of bone of hip (HCC) Claudication COPD (chronic obstructive pulmonary disease) ([facility]) Coronary artery disease Herpes zoster Hyperlipidemia Hypertension PAD (peripheral artery disease) ([facility]) 01/21/2022 Posterior tibial tendinitis of right leg 11/07/2022 Prostate cancer (HCC) Vascular disease Past Surgical History: Procedure Laterality Date AMPUTATION TRANSMETATARSAL Left 10/08/2018 Procedure: LEFT MIDFOOT AMPUTATION; Surgeon: Flynn Mann DPM; Location: [facility]; Service: Podiatry ANKLE SURGERY Left BYPASS PERONEAL FEMORAL Right 09/07/2018 Procedure: BYPASS PERONEAL FEMORAL, RIGHT SAPHENOUS VEIN HARVEST, COMPLETION ANGIOGRAM; Surgeon: Mohsen Sarabia MD; Location: [facility]; Service: Cardiovascular CARDIAC CATHETERIZATION Left 09/05/2018 Procedure: Angio Lower Extremity; Surgeon: Ben Hahn MD; Location: [facility]; Service: Cardiovascular CARDIAC SURGERY 2017 triple bypass [...] not hesitate to contact me via the [facility] Directory if any errorhas made critical portions of the note difficult to interpret. [1] Social History Socioeconomic History Marital status: Tobacco Use Smoking status: Never Smokeless tobacco: Never Vaping Use Vaping status: Never Used Substance and Sexual Activity Alcohol use: Not Currently Drug use: Never Sexual activity: Not Currently Social Drivers of Health Financial Resource Strain: Low Risk (06/21/2024) Received from [facility] Overall Financial Resource Strain (CARDIA) Difficulty of Paying Living Expenses: Not hard at all Food Insecurity: No Food Insecurity (06/21/2024) Received from [facility] Hunger Vital Sign Worried About Running Out of Food in the Last Year: Never true Ran Out of Food in the Last Year: Never true Transportation Needs: No Transportation Needs (06/21/2024) Received from [facility] PRAPARE - Transportation Lack of Transportation (Medical): No Lack of Transportation (Non-Medical): No Physical Activity: Insufficiently Active (06/21/2024) Received from [facility] Exercise Vital Sign Days of Exercise per Week: 7 days Minutes of Exercise per Session: 10 min Stress: No Stress Concern Present (06/21/2024) Received from [facility] [place] of Occupational Health - Occupational Stress Questionnaire Feeling of Stress : Not at all Housing Stability: Low Risk (06/21/2024) Received from [facility] Housing Stability Vital Sign Unable to Pay for Housing in the Last Year: No Number of Times Moved in the Last Year: 0 Homeless in the Last Year: No [id number] NoteMedOne History and Physical Note 03/14/25 Tristin Powell 1940 [id number] Assessment/Plan: Tristin Powell is a 85 y.o. male with a history of Peripheral Artery Disease s/p Bypass, Afib (Xarelto), Diastolic Heart Failure, Coronary Artery Disease s/p CABG, Hypertension, CKD III, COPD, Prostate Cancer, and Insomnia. Patient had outpatient angiogram 03/12/25 with balloon angioplasty. He presented to [facility] ED on 03/14/2025 from Vascular Surgery clinic with intractable right foot pain. In ED: right YAMILE 0.5; 50-99% stenosis in right mid superficial femoral artery; WBC 3.5. Course prolonged due to need for angiogram and Xarelto washout. Peripheral Artery Disease: Followed by Dr. Beaver ([facility]) and Dr. Sarabia (Vascular Surgery) [...] additional for acute pain. CAD: Followed by [facility] s/p 3 vessel coronary artery bypass grafting in 2017 and 7 stents. Chronic Diastolic Heart Failure: TTE 04/2024: LVEF 55% grade 1 diastolic dysfunction, moderate aortic regurgitation, moderate mitral regurgitation, mild tricuspid regurgitation. Appeared euvolemic on admission. Continued home losartan and lasix every other day. Paroxysmal Afib: [id number] of 5. Xarelto as above (no indication [...] lovenox. Medication Reconciliation: Reviewed using patient interview, psychology technician Current living situation: home Expected Disposition: [...] personally discussed with [place] (Peripheral Vascular Cardiology [facility]) and Dr. Barraza (Vascular Surgery) - likely angiogram on Monday; no surgical intervention. ROS: 10 systems were reviewed and negative, (more content not included)...[facility]07-18-2025 Emergency department Note* Lorena Bethea - 03/14/2025 1:14 PM EDT [facility] to write admission orders [id number] Physician Emergency department Note* Elaine Macdonald MD - 03/14/2025 12:26 PM EDT ED PROVIDER NOTE [facility] EMERGENCY DEPARTMENT Patient Name: Tristin [...] Course User Index [EK] Elaine Macdonald MD [facility] Data: I saw and evaluated the [...] 113.4 kg (250 lb) - Refer to [facility] section above for additional physical exam [...] Avascular necrosis of bone of hip ([facility]) Claudication COPD (chronic obstructive pulmonary disease) ([facility]) Coronary artery disease Herpes zoster Hyperlipidemia Hypertension PAD (peripheral artery disease) ([facility]) 01/21/2022 Posterior tibial tendinitis of right leg 11/07/2022 Prostate cancer ([facility]) Vascular disease Past Surgical History: Procedure Laterality Date AMPUTATION TRANSMETATARSAL Left 10/08/2018 Procedure: LEFT MIDFOOT AMPUTATION; Surgeon: Flynn Mann DPM; Location: [facility]; Service: Podiatry ANKLE SURGERY Left BYPASS PERONEAL FEMORAL Right 09/07/2018 Procedure: BYPASS PERONEAL FEMORAL, RIGHT SAPHENOUS VEIN HARVEST, COMPLETION ANGIOGRAM; Surgeon: Mohsen Sarabia MD; Location: [facility]; Service: Cardiovascular CARDIAC CATHETERIZATION Left 09/05/2018 Procedure: Angio Lower Extremity; Surgeon: Ben Hahn MD; Location: [facility]; Service: Cardiovascular CARDIAC SURGERY 2017 triple bypass [...] correspondence this note was partially generated by [employer] voice recognition software and is inherently subject [...] Resource Strain: Low Risk (06/21/2024) Received from [facility] Overall Financial Resource Strain (CARDIA) Difficulty of Paying Living Expenses: Not hard at all Food Insecurity: No Food Insecurity (06/21/2024) Received from [facility] Hunger Vital Sign Worried About Running Out of Food in the Last Year: Never true Ran Out of Food in the Last Year: Never true Transportation Needs: No Transportation Needs (06/21/2024) Received from [facility] PRAPARE - Transportation Lack of Transportation (Medical): No Lack of Transportation (Non-Medical): No Physical Activity: Insufficiently Active (06/21/2024) Received from [facility] Exercise Vital Sign Days of Exercise per Week: 7 days Minutes of Exercise per Session: 10 min Stress: No Stress Concern Present (06/21/2024) Received from [facility] [place] of Occupational Health - Occupational Stress Questionnaire Feeling of Stress : Not at all Housing Stability: Low Risk (06/21/2024) Received from [facility] Housing Stability Vital Sign Unable to Pay for Housing in the Last Year: No Number of Times Moved in the Last Year: 0 Homeless in the Last Year: No [2] Allergies Allergen Reactions Doxycycline Elevated blood pressure, GI intolerance/ nausea/vomiting Gabapentin GI Intolerance [id number] History of Present illness Narrative* Ludivina Garcia RN - 03/14/2025 12:05 PM EDT STAT Medical Records Release form faxed to [phone]. Fax confirmation received. documented in this [id number] Consult note* Beena Barraza MD - 03/14/2025 [...] (2018, [place]), left TMA who presented to [facility] on 03/14/2025 with worsening RLE pain [...] Beena Barraza MD General Surgery Resident, PGY-2 [facility] Please contact surgical administration intern environmental studies faculty member 5PM-6AM and weekends - #[phone] TNS Pager - #[phone] Admitted with these risk variables:None. Please see [...] Avascular necrosis of bone of hip ([facility]) Claudication COPD (chronic obstructive pulmonary disease) ([facility]) Coronary artery disease Herpes zoster Hyperlipidemia Hypertension PAD (peripheral artery disease) ([facility]) 01/21/2022 Posterior tibial tendinitis of right leg 11/07/2022 Prostate cancer ([facility]) Vascular disease Past Surgical History: Procedure Laterality Date AMPUTATION TRANSMETATARSAL Left 10/08/2018 Procedure: LEFT MIDFOOT AMPUTATION; Surgeon: Flynn Mann DPM; Location: [facility]; Service: Podiatry ANKLE SURGERY Left BYPASS PERONEAL FEMORAL Right 09/07/2018 Procedure: BYPASS PERONEAL FEMORAL, RIGHT SAPHENOUS VEIN HARVEST, COMPLETION ANGIOGRAM; Surgeon: Mohsen Sarabia MD; Location: [facility]; Service: Cardiovascular CARDIAC CATHETERIZATION Left 09/05/2018 Procedure: Angio Lower Extremity; Surgeon: Ben Hahn MD; Location: [facility]; Service: Cardiovascular CARDIAC SURGERY 2017 triple bypass [...] Resource Strain: Low Risk (06/21/2024) Received from [facility] Overall Financial Resource Strain (CARDIA) Difficulty of Paying Living Expenses: Not hard at all Food Insecurity: No Food Insecurity (06/21/2024) Received from [facility] Hunger Vital Sign Worried About Running Out of Food in the Last Year: Never true Ran Out of Food in the Last Year: Never true Transportation Needs: No Transportation Needs (06/21/2024) Received from [facility] PRAPARE - Transportation Lack of Transportation (Medical): No Lack of Transportation (Non-Medical): No Physical Activity: Insufficiently Active (06/21/2024) Received from [facility] Exercise Vital Sign Days of Exercise per Week: 7 days Minutes of Exercise per Session: 10 min Stress: No Stress Concern Present (06/21/2024) Received from [facility] [place] of Occupational Health - Occupational Stress Questionnaire Feeling of Stress : Not at all Housing Stability: Low Risk (06/21/2024) Received from [facility] Housing Stability Vital Sign Unable [...] personally examined the patient and agree with resident/RESIDENT CARE DIRECTOR/PA assessment and plan with the following additional findings. Pt known to me with CLTI of the RLE with rest pain and early ischemic skin changes. Plan for R fem tib bypass on Monday for limb salvage [id number] History of Present illness Narrative* Ludivina Garcia RN - 03/14/2025 11:12 AM EDT Spoke with Edwina from [facility] to obtain RLE Angiogram from 03/12/25. This Nurse was informed that for imaging if daughter is not POA that the patient would need to sign a release form and have the patient's sign it. She explained to this Nurse that the form will be faxed to [phone]. Edwina also informed this Nurse that they will fax the report for the RLE Angiogram once it is signed. This Nurse verbalized understanding and explained to Edwina that our office will reach out to the daughter to have her pecan picker the disc for the imaging of RLE Angiogram. Edwina verbalized understanding. All questions answered. documented in this [id number] Emergency department Triage note* Mikey Cadena RN [...] All Patient Name: Tristin Powell MR #: [id number] Subjective: office nurse received call from daughter who expressed concern about patient losing hisfoot- he is in dire pain and his toes on his right foot are turning purple. Dr. Sarabia requested USDuplex Arterial RLE and ABIs, and here for office visit today [id number] History of Present illness Narrative* Ken Johnson, KAMARI - 03/14/2025 10:00 AM EDT Patient Name: Tristin Powell MR #: [id number] Subjective: office nurse received call from daughter [...] had a right angiogram attempted at the [facility] on Monday03/12/2025 but was told they [...] this Will attempt to get angiogram from [facility] from 03/12/2025; may need to repeat [...] Ken Johnson CNP 03/14/2025 documented in this [id number] NotePatient Name: Tristin Powell MR #: [id number] Subjective: office nurse received call from daughter [...] had a right angiogram attempted at the [facility] on Monday03/12/2025 but was told they [...] this Will attempt to get angiogram from [facility] from 03/12/2025; may need to repeat [...] a 7:45 AM arrival time in the [place] on [place] garden [place]. His ABIs will follow at 9 AM. Then his office visit with Ken Johnson CNP will be at 10 AM on the 5th floor of the [facility], [address]. Instructions provided for how to get to testing and office visit. Daughter verbalized understanding and expressed appreciation. All questions answered. documented in this [id number] Evaluation note* Diagnosis Onset Date Resolution Status Admit Date Peripheral vascular disease acuteJuly 2024 11:20am [facility] Work Phone: 1(583) 699-441107-15-2025 Evaluation note* Diagnosis Onset Date Resolution Status Admit Date Peripheral vascular disease acuteJuly 2024 11:20amChest painacuteSeptember 2024 4:42pmDyspnea acuteSeptember 2024 4:42pm [facility] Work Phone: 1(988) 736-567507-15-2025 Evaluation note* Diagnosis Onset Date Resolution Status Admit Date Peripheral vascular disease acuteJuly 2024 11:20amAcute respiratory failure with hypoxiaacuteSeptember 2024 11:19amChest painacuteSeptember 2024 11:19amCOPD exacerbation acuteSeptember 2024 11:19amDyspneaacuteSeptember 2024 11:19am HemoptysisacuteSeptember 2024 11:19amLung abscessacuteSeptember 2024 11:19amRhinovirus infectionacuteSeptember 2024 11:19am [facility] Work Phone: 1(690) 931-652306-19-2025 Telephone encounter Note* Telephone Encounter - Megansteph Douglass - 02/13/2025 3:28 PM EDT zolpidem (Ambien) 10 MG tablet Hydrocodone 5-352 [place] [facility] [id number] Miscellaneous Notes* Telephone Encounter - Megan Douglass - 02/13/2025 3:28 PM EDT zolpidem (Ambien) 10 MG tablet Hydrocodone 5-352 [place] documented in this encounterKansas City VA Medical CenterUtprydgdec94-02-2657 History of Present illness Narrative* Bhaskar Wilson [...] 2009 Avascular necrosis of bone of hip ([facility]) 09/04/2011 Right hip Right hip CAD (coronary artery disease) ([facility]) 2013 Carotid artery disease ([facility]) Cataract 2014 Cellulitis 01/19/2022 [facility] Cellulitis LLE Colon polyps 2012 Critical lower limb ischemia ([facility]) 09/04/2018 Last Assessment & Plan: Pt s/p LLE angiogram with Dr Hahn who feels that the pt has no further endovascular options. He has consulted Dr. Sarabia for a possible tibial bypass. Pt s/p LLE critical limb ischemia Deann class 4 rest pain with distal discoloration to histoes Gangrene of left foot ([facility]) 10/04/2018 Groin hematoma 2013 RT Femoral groin Hematoma H/O myocardial perfusion scan 07/09/2019 LVEF 56% Myocardial perfusion imaging shows a defect in Apical wall Herpes zoster 09/04/2011 History of being hospitalized 12/06/2020 Strep Pneumonia, Resp. Failure - [facility] History of being hospitalized [place] - [facility] 07/15/2021-07/16/2021 History of coronary angiogram [...] incomplete bowel prep Diverticulosis Dr. Rowe at [facility] COLONOSCOPY W/ POLYPECTOMY 2011 CORONARY ARTERY [...] HISTORY 04/25/[address] Hahn [facility]ICATION [facility]NAGEMENT 11/2020 Multi resistant Strep Pneumonia, [...] No follow-ups on file. documented in this encounterKansas City VA Medical [id number] Telephone encounter Note* Telephone Encounter - Megan Douglass - 01/02/2025 10:43 AM EDT oxyCODONE-acetaminophen (Percocet) 5-325 MG tablet [ [place] [facility] [id number] Miscellaneous Notes* Telephone Encounter - Megan Douglass - 01/02/2025 10:43 AM EDT oxyCODONE-acetaminophen (Percocet) 5-325 MG tablet [ [place] documented in this encounterKansas City VA Medical [id number] NoteUT Cardiology - [facility] Subjective Tristin Powell is a [...] artery disease involving coronary bypass graft of [place] heart without angina pectoris Coronary artery disease involving [place] coronary artery of [place] heart without angina pectoris Coronary atherosclerosis Critical [...] pain Paresthesia of skin Paroxysmal atrial fibrillation ([facility]) Phantom limb pain ([facility]) Polymyalgia rheumatica Primary osteoarthritis of right hip Routine general medical examination at health care facility Seasonal allergic rhinitis Sinusitis Stage 3a chronic kidney disease ([facility]) Acute cystitis without hematuria Benign essential hypertension Other thrombophilia NSTEMI (non-ST elevated myocardial infarction) ([facility]) Hx of CABG Coronary artery disease Acquired absence of left leg below knee ([facility]) Other complications of amputation stump ([facility]) Pulmonary hypertension, unspecified ([facility]) Secondary hypercoagulable state Bronchiectasis, uncomplicated ([facility]HCC) Chronic diastolic (congestive) heart failure ([facility]) Family History Problem Relation Name Age of [...] instent restenosis. He then underwent CABG at [facility] in 2016 (CHAVEZ to diagonal, SVG [...] a yellow jacket and he went to [facility] for evaluation. He had mildly elevated high-sensitivity [...] he feels good. Cuca (more content not included)...[facility] 11-26-2024 Telephone encounter Note* Telephone Encounter - LEONARDA Villavicencio - 11/26/2024 1:04 PM EDT OARRS reviewed, Rx sent into patient's pharmacy. Albuterol also sent. [facility] [id number] Miscellaneous Notes* Telephone Encounter - LEONARDA Villavicencio - 11/26/2024 1:04 PM EDT OARRS reviewed, Rx sent into patient's pharmacy. Albuterol also sent. * Telephone Encounter - Megan Douglass - 11/26/2024 10:31 AM EDT oxyCODONE-acetaminophen (Percocet) 5-325 MG tablet [place] in [place] documented in this encounterKansas City VA Medical CenterJjkvzrpghi79-83-1993 Telephone encounter Note* Telephone Encounter - Megan Douglass - 11/26/2024 10:31 AM EDT oxyCODONE-acetaminophen (Percocet) 5-325 MG tablet [place] [facility]OMRay [facility] HospitalEswdwejzim32-52-9590 History of Present illness Narrative* Elaine Saab [...] States this prescription needs to go to [facility] in [place], [place]. States all other prescriptions go to [facility] pharmacy. Medications reconciled with pt. Pt also needs refill on albuterol HFA 90 mcg/act inhaler. This is to be sent to [facility]. * LEONARDA Villavicencio - 11/25/2024 9:54 AM EDT Will send meds in for pt. documented in this encounterKansas City VA Medical CenterEsnkprgbrw08-39-4987 Telephone encounter Note* Telephone Encounter - Megan Douglass - 10/21/2024 9:32 AM EST Pt scheduled [facility] CenterZwudhesdxn99-86-5279 Miscellaneous Notes* Telephone Encounter - Megan Douglass - 10/21/2024 9:32 AM EST Pt scheduled * Telephone Encounter - LEONARDA Villavicencio - 10/18/2024 12:38 PM EST Please help pt get set up with Dr. Lovelace for medication follow up appointment in October. OARRS reviewed, Rx sent into patient's pharmacy. documented in this encounterKansas City VA Medical CenterCbqxzcauxn69-90-9696 Telephone encounter Note* Telephone Encounter - LEONARDA Villavicencio - 10/18/2024 12:38 PM EST Please help pt get set up with Dr. Lovelace for medication follow up appointment in October. OARRS reviewed, Rx sent into patient's pharmacy. [facility] CenterWeznrnhkbw62-94-3832 History of Present illness Narrative* Ludivina Garcia RN - 09/23/2024 1:09 PM EST Spoke with Nurse from Dr. Beaver's office with [facility] and requested reports for ABIs and US Duplex Bypass Graft LLE be faxed to [phone]. Staff verbalized understanding. All questions answered. documented in this [id number] Telephone encounter Note* Telephone Encounter - LEONARDA Villavicencio - 09/13/2024 12:11 PM EST OARRS reviewed, Rx sent into patient's pharmacy. [id number] Miscellaneous Notes* Telephone Encounter - LEONARDA Villavicencio - 09/13/2024 12:11 PM EST OARRS reviewed, Rx sent into patient's pharmacy. * Telephone Encounter - Cindi Oscar - 09/12/2024 1:32 PM EST oxyCODONE-acetaminophen (Percocet) 5-325 MG tablet to sebastien dougherty documented in this encounterKansas City [facility] Medical [id number] Telephone encounter Note* Telephone Encounter - Cinditoby Oscar - 09/12/2024 1:32 PM EST oxyCODONE-acetaminophen (Percocet) 5-325 MG tablet to sebastien dougherty [facility] [id number] History of Present illness Narrative* Ludivina Garcia RN - 08/20/2024 12:50 PM EST Lvm for staff at [facility] V[facility] Surgery with Dr. Beaver's office to clarify if patient already completed his ABIs and US Duplex Bypass Graft LLE. Left direct number for call back. documented in this [id number] History of Present illness Narrative* Flash Lovelace [...] includes PVD. There is no history of CAD/WV orCVA. There is no history of a [...] hip Right hip CAD (coronary artery disease) ([facility]) 2013 Carotid artery disease ([facility]) Cataract 2014 Cellulitis 01/19/2022 [facility] Cellulitis LLE Colon polyps 2012 Critical lower limb ischemia ([facility]) 09/04/2018 Last Assessment & Plan: Pt s/p LLE angiogram with Dr Hahn who feels that the pt has no further endovascular options. He has consulted Dr. Sarabia for a possible tibial bypass. Pt s/p LLE critical limb ischemia Bethel class 4 rest pain with distal discoloration to histoes Gangrene of left foot ([facility]) 10/04/2018 Groin hematoma 2013 RT Femoral groin Hematoma H/O myocardial perfusion scan 07/09/2019 LVEF 56% Myocardial perfusion imaging shows a defect in Apical wall Herpes zoster 09/04/2011 History of being hospitalized 12/06/2020 Strep Pneumonia, Resp. Failure - [facility] History of being hospitalized [place] - [facility] 07/15/2021-07/16/2021 History of coronary angiogram [...] incomplete bowel prep Diverticulosis Dr. Rowe at [facility] COLONOSCOPY W/ POLYPECTOMY 2011 CORONARY ARTERY [...] HISTORY 04/25/[address] Hahn [facility] MEDICATION MANAGEMENT 11/2020 Multi resistant Strep Pneumonia, [...] Relevant Orders Influenza, high-dose seasonal, quadrivalent, PF (FKZ559) (Fluzone High Dose Quad North 0.7mL dose) (Completed) No follow-ups on file. documented in this encounterKansas City VA Medical [id number] Telephone encounter Note* Telephone Encounter - Megan Douglass - 08/06/2024 2:54 PM EST oxyCODONE-acetaminophen (Percocet) 5-325 MG tablet zolpidem (Ambien) 10 MG tablet [employer] [employer] [facility] [id number] Miscellaneous Notes* Telephone Encounter - Megan Douglass - 08/06/2024 2:54 PM EST oxyCODONE-acetaminophen (Percocet) 5-325 MG tablet zolpidem (Ambien) 10 MG tablet [employer] documented in this encounterKansas City VA Medical CenterKycpwkryzq63-08-9538 NoteUT Cardiology - [facility] Subjective Tristin Powell is a [...] artery disease involving coronary bypass graft of [place] heart without angina pectoris Coronary artery disease involving [place] coronary artery of [place] heart without angina pectoris Coronary atherosclerosis Critical [...] instent restenosis. He then underwent CABG at [facility] in 2016 (CHAVEZ to diagonal, SVG [...] a yellow jacket and he went to [facility] for evaluation. He had mildly elevated high-sensitivity [...] joint pain, myalgias and (more content not included)...[facility]11-13-2024 Note Patient: Tristin Powell Procedure Information Date/Time: 07/10/24929 Procedure: Coronary angiography - PC APPROVED Location: [facility] 3 / [facility] (Cath) Providers: Eliezer Juarez MD Clinical information reviewed: Allergies Meds Physical Exam Airway Mallampati: III TM distance: >3 FB Neck ROM: full Cardiovascular Rhythm: regular Rate: normal Dental Pulmonary Abdominal Anesthesia Plan ASA 3 (Conscious sedation) Anesthetic plan and risks discussed with patient. Use of blood products discussed with patient who. Plan discussed with attending. Additional Equipment RequestsC[facility]11-08-2024 Telephone encounter Note* Telephone Encounter - LEONARDA Villavicencio - 07/05/2024 9:35 AM EST OARRS reviewed, Rx sent into patient's pharmacy. [facility] CenterUrhckrorpv89-09-6418 Miscellaneous Notes* Telephone Encounter - LEONARDA Villavicencio - 07/05/2024 9:35 AM EST OARRS reviewed, Rx sent into patient's pharmacy. * Telephone Encounter - Cindi Oscar - 07/05/2024 9:18 AM EST oxyCODONE-acetaminophen (Percocet) 5-325 MG tablet to [place] [facility] documented in this encounterKansas City VA Medical [id number] Telephone encounter Note* Telephone Encounter - Cindi Oscar - 07/05/2024 9:18 AM EST oxyCODONE-acetaminophen (Percocet) 5-325 MG tablet to [place] [employer] [id number] Telephone encounter Note* Telephone Encounter - Megan Douglass - 06/17/2024 10:04 AM EDT Patient called requesting a zpack due to a cold. He asked something to be sent into [facility] in [place]. [facility] CenterBkuvtowfed02-50-5904 Miscellaneous Notes* Telephone Encounter - Megan Douglass - 06/17/2024 10:04 AM EDT Patient called requesting a zpack due to a cold. He asked something to be sent into [facility] in [place]. documented in this encounterKansas City VA Medical CenterOisvjurlxe15-07-3345 NoteUT Cardiology [facility] Subjective Tristin Powell is a 84 y.o. year old male patient being seen for 6 mo follow up CAD, PAD, AAA, HTN, and HLD. Had lipid panel Sep, 2023. He is now seeing vascular surgery in [place], Dr. Beaver. Patient Active Problem List Diagnosis Abdominal pain Chest pain Aortic valve regurgitation Mitral valve regurgitation Avascular necrosis of bone of hip (CMS/HCC) Community acquired pneumonia of left lower lobe of lung Contusion Hematoma of arm, left, initial encounter Coronary artery disease involving coronary bypass graft of [place] heart without angina pectoris Coronary artery disease involving [place] coronary artery of [place] heart without angina pectoris Coronary atherosclerosis Critical [...] instent restenosis. He then underwent CABG at [facility] in 2017 (CHAVEZ to diagonal, SVG [...] stress ECHO that could be done at [facility]. He has not had this done yet as he notes his vascular surgery is on hold at the moment and they are monitoring things. 05/28/2024 Since last seen, pt presented to [facility] with c/o chest pain. He was stung by a yellow jacket. 4 hours later he developed sharp stabbing chest pains that lasted seconds. This happened again 2 hours later. He went to [facility] for further evaluation. He has had no further episodes of chest pain. Review of Systems Cardiovascular (more content not included)...[facility] 05-28-2024 NotePt is here for a follow up after being in [facility]. Pt has HLD, HNT, and CAD. Pt denies chest pain, sob, dizziness. Review of Systems Cardiovascular: Positive for claudication and leg swelling. Respiratory: Positive for wheezing. Hematologic/Lymphatic: Bruises/bleeds easily. Musculoskeletal: Positive for arthritis, back pain, joint pain, myalgias and neck pain. All other systems reviewed and are negative.[facility] 05-21-2024 History of Present illness Narrative* LEONARDA Villavicencio - 05/21/2024 1:00 PM EDT HPI Med Refill Additional comments: Oxycodone Last edited by Wendy Tubbs LPN on 05/21/2024 1:07 PM. Subjective Patient ID: Tristin Powell is a 84 y.o. male who presents for hospital follow up. Flowsheet Row Patient Outreach from 05/16/2024 in [employer] with Mary Rodriguez LPN Hospital Information Discharged To: Home Setting Discharge [facility] Diagnosis Chest pain, HTN, CAD, paroximal [...] went to a lung specialist down in [place] and after the repeat test was told [...] morning. [DISCONTINUED] ergocalciferol (Vitamin D-2) 1.25 MG (51403 UT) capsule Take 50,000 Units by mouth [...] 2009 Avascular necrosis of bone of hip ([facility]) 09/04/2011 Right hip Right hip CAD (coronary artery disease) ([facility]) 2014 Carotid artery disease ([facility]) Cataract 2014 Cellulitis 01/19/2022 [facility] Cellulitis LLE Colon polyps 2011 Critical lower limb ischemia ([facility]) 09/04/2018 Last Assessment & Plan: Pt s/p LLE angiogram with Dr Hahn who feels that the pt has no further endovascular options. He has consulted Dr. Sarabia for a possible tibial bypass. Pt s/p LLE critical limb ischemia Bethel class 4 rest pain with distal discoloration to histoes Gangrene of left foot ([facility]) 10/04/2018 Groin hematoma 2013 RT Femoral groin Hematoma H/O myocardial perfusion scan 07/09/2019 LVEF 56% Myocardial perfusion imaging shows a defect in Apical wall Herpes zoster 09/04/2011 History of being hospitalized 12/06/2020 Strep Pneumonia, Resp. Failure - [facility] History of being hospitalized [place] - [facility] 07/15/2021-07/16/2021 History of coronary angiogram [...] incomplete bowel prep Diverticulosis Dr. Rowe at [facility] COLONOSCOPY W/ POLYPECTOMY 2011 CORONARY ARTERY BYPASS GRAFT 11/09/2016 x3 CHAEVZ to diag, SVG to OM1, SVG to [...] HISTORY 04/25/2022 Diagnostic LE catheterization Dr. Hahn CO MEDICATION MANAGEMENT 11/2020 Multi resistant Strep Pneumonia, [...] 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CMS/[facility]) The patient is seeing a medical laboratory specialist for this condition, treatment is deferred to [...] for Appointment As Scheduled. documented in this encounterKansas City VA Medical [id number] History of Present illness Narrative* LEONARDA Villavicencio [...] % ointment ergocalciferol (Vitamin D-2) 1.25 MG (91553 UT) capsule Take 50,000 Units by mouth [...] fracture, left 2009 CAD (coronary artery disease) ([facility]) 2013 Carotid artery disease ([facility]) Cataract 2014 Cellulitis 01/19/2022 [facility] Cellulitis LLE Colon polyps 2011 Groin hematoma 2013 RT Femoral groin Hematoma H/O myocardial perfusion scan 07/09/2019 LVEF 56% Myocardial perfusion imaging shows a defect in Apical wall History of being hospitalized 12/06/2020 Strep Pneumonia, Resp. Failure - [facility] History of being hospitalized [place] - [facility] 07/15/2021-07/16/2021 History of coronary angiogram [...] incomplete bowel prep Diverticulosis Dr. Rowe at [facility] COLONOSCOPY W/ POLYPECTOMY 2011 CORONARY ARTERY [...] HISTORY 04/25/[address] LE [address] Hahn CO MEDICATION MANAGEMENT 11/2020 Multi resistant Strep Pneumonia, [...] Do you have a medical power of assistant county attorney?: Yes Objective : BP 132/82 Pulse [...] exertion The patient is seeing a medical laboratory specialist for this condition, treatment is deferred to that specialist. Correspondence from that specialist and any available testing were reviewed during today's visit. 12. Orthopnea The patient is seeing a medical laboratory specialist for this condition, treatment is deferred to [...] aortic aneurysm (AAA) without rupture, unspecified part ([facility]/HCC) The patient is seeing a medical laboratory specialist for this condition, treatment is deferred to that specialist. Correspondence from that specialist and any available testing were reviewed during today's visit. 16. Aortic valve insufficiency, etiology of cardiac valve disease unspecified The patient is seeing a medical laboratory specialist for this condition, treatment is deferred to that specialist. Correspondence from that specialist and any available testing were reviewed during today's visit. 17. Atherosclerosis of [place] coronary artery of [place] heart without angina pectoris ([facility]/HCC) The patient is seeing a medical laboratory specialist for this condition, treatment is deferred to that specialist. Correspondence from that specialist and any available testing were reviewed during today's visit. 18. Benign essential hypertension ([facility]/HCC) Patient's blood pressure is currently well controlled. Continue with current medications and I willcontinue to monitor. 19. Stenosis of right carotid artery The patient is seeing a medical laboratory specialist for this condition, treatment is deferred to that specialist. Correspondence from that specialist and any available testing were reviewed during today's visit. 20. Chronic heart failure with preserved ejection fraction (CMS/HCC) The patient is seeing a medical laboratory specialist for this condition, treatment is deferred to that specialist. Correspondence from that specialist and any available testing were reviewed during today's visit. 21. Chronic ischemic heart disease (CMS/HCC) The patient is seeing a medical laboratory specialist for this condition, treatment is deferred to that specialist. Correspondence from that specialist and any available testing were reviewed during today's visit. 22. Mitral valve insufficiency, unspecified etiology The patient is seeing a medical laboratory specialist for this condition, treatment is deferred to that specialist. Correspondence from that specialist and any available testing were reviewed during today's visit. 23. Paroxysmal atrial fibrillation ([facility]) The patient is seeing a medical laboratory specialist for this condition, treatment is deferred to that specialist. Correspondence from that specialist and any available testing were reviewed during today's visit. 24. Preinfarction syndrome (CMS/HCC) The patient is seeing a medical laboratory specialist for this condition, treatment is deferred to that specialist. Correspondence from that specialist and any available testing were reviewed during today's visit. 25. PVD (peripheral vascular disease) with claudication ([facility]) The patient is seeing a medical laboratory specialist for this condition, treatment is deferred to that specialist. Correspondence from that specialist and any available testing were reviewed during today's visit. 26. Thoracic aortic aneurysm without rupture, unspecified part ([facility]) The patient is seeing a medical laboratory specialist for this condition, treatment is deferred to [...] 29. Chronic kidney disease due to hypertension ([facility]/HCC) This is a chronic medical condition that is stable since last assessment. No changes in treatment are suggested at this time. 30. Impotence of organic origin This is a chronic medical condition that is stable since last assessment. No changes in treatment are suggested at this time. 31. Malignant neoplasm of prostate (CMS/HCC) The patient is seeing a medical laboratory specialist for this condition, treatment is deferred to [...] time. 35. Claudication of right lower extremity ([facility]/HCC) The patient is seeing a medical laboratory specialist for this condition, treatment is deferred to [...] suggested at this time. 41. Other thrombophilia ([facility]/HCC) This is a chronic medical condition that is stable since last assessment. No changes in treatment are suggested at this time. 42. Abnormal radiographic examination The patient is seeing a medical laboratory specialist for this condition, treatment is deferred to that specialist. Correspondence from that specialist and any available testing were reviewed during today's visit. 43. Disorder of lipid metabolism (CMS/HCC) The patient is seeing a medical laboratory specialist for this condition, treatment is deferred to that specialist. Correspondence from that specialist and any available testing were reviewed during today's visit. 44. Left sciatic nerve pain This is a chronic medical condition that is stable since last assessment. No changes in treatment are suggested at this time. 45. Mixed hyperlipidemia (CMS/HCC) The patient is seeing a medical laboratory specialist for this condition, treatment is deferred to [...] 100 g; Refill: 3 48. Atherosclerosis of [place] arteries of extremities with rest pain, unspecified extremity (CMS/HCC) The patient is seeing a medical laboratory specialist for this condition, treatment is deferred to that specialist. Correspondence from that specialist and any available testing were reviewed during today's visit. 49. Pulmonary hypertension, unspecified (CMS/HCC) The patient is seeing a medical laboratory specialist for this condition, treatment is deferred to that specialist. Correspondence from that specialist and any available testing were reviewed during today's visit. Follow up in about 3 months (around 07/27/2024) for Medication Follow Up. Electronically signed by LEONARDA Villavicencio on April 26, 2024 documented in this encounterKansas City VA Medical [id number] NotePt is here for a six month follow up. Pt has hyperlipidemia, hypertension, PAD. Pt denies sob, chest pain, palpitations Review of Systems Cardiovascular: Positive for claudication. Respiratory: Positive for wheezing. Hematologic/Lymphatic: Bruises/bleeds easily. Musculoskeletal: Positive for arthritis, back pain, joint pain, myalgias and neck pain. All other systems reviewed and are negative.[facility] 04-24-2024 NoteUT Cardiology - [facility] Reginaldo Powell is a 84 y.o. year old male patient being seen for 6 mo follow up CAD, PAD, AAA, HTN, and HLD. Had lipid panel Feb, 2024. He is now seeing vascular surgery in [place], Dr. Beaver. Patient Active Problem List Diagnosis Abdominal pain Chest pain Aortic valve regurgitation Mitral valve regurgitation Avascular necrosis of bone of hip (CMS/HCC) Community acquired pneumonia of left lower lobe of lung Contusion Hematoma of arm, left, initial encounter Coronary artery disease involving coronary bypass graft of [place] heart without angina pectoris Coronary artery disease involving [place] coronary artery of [place] heart without angina pectoris Coronary atherosclerosis Critical [...] instent restenosis. He then underwent CABG at [facility] in 2017 (CHAVEZ to diagonal, SVG [...] stress ECHO that could be done at [facility]. He has not had this done yet [...] (BP Location: Right arm (more content not included)...[facility]04-30-2024 Hospital Discharge instructions Patient Education 12/26/2023 [...] greater thelikelihood that the cancer will spread. Rhine 6 or lower: This indicates that the cancer cells look similar to normal prostate cells (well differentiated). Rhine 7: This indicates that the cancer cells look somewhat similar to normal prostate cells (moderately differentiated). Rhine 8, 9, or 10: This indicates that [...] stress of having cancer. General instructions Take niqe-zqr-awgclqn and prescription medicines only as told by your health care provider. If you have to go to the hospital, notify your cancer specialist (oncologist). Keep all follow-up visits. This is important. Where to find more information [place] [employer]: www.cancer.org [place] [employer]: www.cancer.net National Cancer [place]: www.cancer.gov Contact a health care provider if: [...] provider. Document Revised: 11/10/2021 Document Reviewed: 11/10/2021 [email or web address] Patient Education 2022 Rezora. Follow Up Care 12/20/2022 14:56:06 With:JAY CARRANZA, BRENNA Bazan, URL Address: [facility] [address] [facility] [place] [address] Business (1) When: only if needed [facility] 02-06-2024 Evaluation note* Encounter Date Diagnosis Assessment [...] understands and is agreement with that plan [facility] 12-14-2023 History of Present illness Narrative* Dahiana Coelho - 08/10/2023 11:40 AM EST Ortho Nurse - Established Patient Intake Room#: 4 Date: 08/10/2023 10:53 AM Patient: Tristin Powell . MR#: [id number] : 1940 Age: 83 y.o. 2yr R [...] 10:53 AM Patient: Tristin Powell . MR#: [id number] : 1940 Age: 83 y.o. 2yr R [...] has No Known Allergies. documented in this [facility]12-13-2023 History of Present illness Narrative* Mohsen [...] year with repeat testing. documented in this [id number] History of Present illness Narrative* Katie Anna [...] Duplex and had previous study done at [facility] in Apr [address] Maxim Beaver. This Nurse will obtain records and submit to Dr. Sarabia for review. documented in this [id number] Evaluation note* Encounter Date Diagnosis Assessment Notes [...] with speech that he should seek attention. [facility] 09-26-2023 Evaluation note* Encounter Date Diagnosis [...] to go over the results with him. [facility] Other 09-26-2023 Evaluation note* Encounter Date Diagnosis Assessment Notes Treatment Notes Treatment Clinical Notes Apr, Peripheral vascular disease, uns pecified (ICD-10 - I73.9) Apr,Other specified postprocedural states (ICD-10 - Z98.890) Apr,Left carotid bruit (ICD-10 - R09.89) [facility] Other 04-25-2023 Hospital Discharge instructions Patient Education [...] Follow these instructions at home: Medicines Take ftnh-tix-fvcpkdn and prescription medicines only as told by [...] provider. Document Revised: 11/10/2021 Document Reviewed: 11/10/2021 [email or web address] Patient Education 2022 Rezora. Follow Up Care 11/21/2022 15:38:53 With:JAY CARRANZA, BRENNA Bazan, URL Address: When:1 year [facility] 03-20-2023 Evaluation note* Encounter Date Diagnosis Assessment [...] meantime with any worsening symptoms or concerns. [facility] 03-14-2023 History of Present illness Narrative* Camila Bland, SENIOR BIOINFORMATICS SPECIALIST - 11/08/2022 12:08 PM EDT Physical [...] to Sit: Supervision, Head of bed elevated Glue Cook: bed positioning mechanics, bedrails Skilled Intervention Provided: verbal cues, patient education, monitoring patient response with activity For: logroll technique, proper body mechanics, self-monitoring during activity Resulting in: improved functional independence Transfers Sit to Stand: Stand by assist Stand Pivot Transfers: Stand by assist Glue Cook: BUE Skilled Intervention Provided: verbal cues, neuromuscular [...] recently Prior Level of Function Level of [place] - Transfers/Ambulation/Mobility: Independent with household ambulation, Independent with community ambulation Level of [place] - ADLs: Independent Level of [place] - Homemaking: Independent Driving: Patient drives For [...] Dawn MD - 11/08/2022 6:57 AM EDT [facility] Progress Note 11/08/2022 Tristin Powell 1940 [id number] Assessment/Plan: Tristin Powell is an 82 year old male with a history of Prostate Cancer, CAD, PAD (left foot amputation 2018), Hypertension, HFpEF who presented to [facility] 11/03/2022 with persistent pneumonia despite #2 [...] to rubbing effect. Recommended to go to [facility] for adjustment to prevent valgus deformity [...] labs, diagnostics, vitals including pulse ox, and solar energy consultant and designer/other provider recommendations. VSS. Troponin with negative downtrend. [...] Oral Daily ipratropium-albuteroL 3 mL Inhalation [facility]H [facility] metoprolol tartrate 50 mg Oral BID pantoprazole 40 mg Oral BID polyethylene glycol 17 g Oral Daily rivaroxaban 2.5 mg Oral BID sodium chloride 1 spray Each Nare BID sodium chloride (PF) 5 mL Intravenous Q8H [facility] Labs, Imaging and Studies reviewed: Results [...] Standing Balance - Static: Stand by assist Glue Cook - Standing Static: (none) Standing Balance - Dynamic: Stand by assist, Contact guard assist Glue Cook - Standing Dynamic: (none) Skilled Intervention Provided: verbal cues, patient education For: self-monitoring during activity, safe use of AD and/or equipment Resulting in: improved functional independence Bed Mobility Supine to Sit: (N/A Pt sitting edge of bed upon arrival) Sit to Supine: (N/A Pt sitting edge of bed at end of session) Transfers Sit to Stand: Stand by assist Glue Cook: (none) Skilled Intervention Provided: verbal cues For: [...] recently Prior Level of Function Level of [place] - Transfers/Ambulation/Mobility: Independent with household ambulation, Independent with community ambulation Level of [place] - ADLs: Independent Level of [place] - Homemaking: Independent Driving: Patient drives For [...] Barboza MD - 11/07/2022 7:39 AM EDT [facility] Inpatient Progress Note 11/07/2022 Tristin Powell 1940 [id number] Assessment/Plan: Tristin Powell is an 82 year old male with a history of Prostate Cancer, CAD, PAD (left foot amputation 2018), Hypertension, HFpEF who presented to [facility] 11/03/2022 with persistent pneumonia despite #2 [...] to rubbing effect. Recommended to go to [facility] for adjustment to prevent valgus deformity [...] 6' 1 Wt 113.4 kg (250 lb) AdN823% BMI 32.98 kg/m General: NAD Eyes: EOMI [...] Barboza MD - 11/06/2022 10:11 AM EDT [facility] Inpatient Progress Note 11/06/2022 Tristin Powell 1940 [id number] Assessment/Plan: Tristin Powell is an 82 year old male with a history of Prostate Cancer, CAD, PAD (left foot amputation 2018), Hypertension, HFpEF who presented to [facility] 11/03/2022 with persistent pneumonia despite #2 [...] PHOSPHORUS mg/dL 4.3* 3.9* -- * Sheng Swete, PT - 11/05/2022 2:59 PM EST Physical [...] Standing Balance - Static: Contact guard assist Glue Cook - Standing Static: other (comment) (none) Standing Balance - Dynamic: Contact guard assist Glue Cook - Standing Dynamic: (none) Loss of Balance- [...] assist Stand Pivot Transfers: Contact guard assist Glue Cook: other (comment) (none) Skilled Intervention Provided: verbal [...] recently Prior Level of Function Level of [place] - Transfers/Ambulation/Mobility: Independent with household ambulation, Independent with community ambulation Level of [place] - ADLs: Independent Level of [place] - Homemaking: Independent Driving: Patient drives For [...] Barboza MD - 11/05/2022 9:53 AM EST [facility] 11/05/2022 Tristin Powell 1940 [id number] Assessment/Plan: Tristin Powell is an 82 year old male with a history of Prostate Cancer, CAD, PAD (left foot amputation 2018), Hypertension, HFpEF who presented to [facility] 11/03/2022 with persistent pneumonia despite #2 [...] left foot area. Nasal irritation. ConsultedPodiatry. Prescribed Cascade Saline nasal spray. Reviewed chart. Physical Exam: [...] None Wound Bed Characteristics Scab Edna-wound Assessment Painful;[place] Treatments Skin barrier cream/paste Cleansed Soap and [...] recently Prior Level of Function Level of [place] - Transfers/Ambulation/Mobility: Independent with household ambulation, Independent with community ambulation Level of [place] - ADLs: Independent Level of [place] - Homemaking: Independent Driving: Patient drives Past Medical History: Diagnosis Date Arthritis Avascular necrosis of bone of hip (HCC) Claudication (HCC) Coronary artery disease Herpes zoster Hyperlipidemia Hypertension PAD (peripheral artery disease) (HCC) 01/21/2022 Prostate cancer (HCC) Vascular disease Past Surgical History: Procedure Laterality Date AMPUTATION TRANSMETATARSAL Left 10/08/2018 Procedure: LEFT MIDFOOT AMPUTATION; Surgeon: Flynn Mann DPM; Location: [facility] OR; Service: Podiatry ANKLE SURGERY Left BYPASS PERONEAL FEMORAL Right 09/07/2018 Procedure: BYPASS PERONEAL FEMORAL, RIGHT SAPHENOUS VEIN HARVEST, COMPLETION ANGIOGRAM; Surgeon: Mohsen Sarabia MD; Location: [facility]; Service: Cardiovascular CARDIAC CATHETERIZATION Left 09/05/2018 Procedure: Angio Lower Extremity; Surgeon: Ben Hahn MD; Location: [facility]; Service: Cardiovascular CARDIAC SURGERY 2017 triple bypass [...] Barboza MD - 11/04/2022 10:58 AM EST [facility] Progress Note 11/04/2022 Tristin Powell 1940 [id number] Assessment/Plan: Tristin Powell is an 82 year old male with a history of Prostate Cancer, CAD, PAD (left foot amputation 2018), Hypertension, HFpEF who presented to [facility] 11/03/2022 with persistent pneumonia despite #2 [...] mg/dL 3.9* -- * El Owen [facility],PharmD - 11/03/2022 10:20 PM EST PHARMACOTHERAPY [...] 1 Encounters: 11/03/22 113.4 kg (250 lb) [place] body weight: 79.9 kg (176 lb 2.4 [...] Component Value Units Date/Time Sputum Aerobic Culture [[id number]] Order Status: Sent Specimen: Sputum, Expectorated S. pneumoniae Urine Antigen [[id number]] Order Status: Sent Specimen: Urine, Random Legionella Antigen, Urine [[id number]] Order Status: Sent Specimen: Urine, Random MRSA DNA Amplified Probe [[id number]] Order Status: Sent Specimen: Swab from Nasal Blood Culture Aerobic/Anaerobic [[id number]] (Normal) Collected: 11/03/221352 Order Status: Completed Specimen: Blood, Peripheral Updated: 11/03/22 1559 Culture In Progress; No Growth to Date Blood Culture Aerobic/Anaerobic [[id number]] (Normal) Collected: 11/03/221351 Order Status: Completed Specimen: Blood, Peripheral Updated: 11/03/22 1559 Culture In Progress; No Growth to Date Pharmacist: El Owen RPh,PharmD Contact Number: documented in this [id number] Hospital Discharge instructions * Discharge Instructions* Vickey [...] Low Sodium Diet (Malian) documented in this [id number] Hospital course Narrative* Vickey Dawn MD - 11/08/2022 11:18 AM EDT Images from the original note were not included. [facility] DISCHARGE SUMMARY Tristin Powell Account: [id number] Admitted: 11/03/2022 Discharge Date/Time: 11/08/22 11:30 AM [...] amputation 2018), Hypertension, HFpEF who presented to [facility] 11/03/2022 with persistent pneumonia despite #2 [...] to rubbing effect. Recommended to go to [facility] for adjustment to prevent valgus deformity [...] Trelegy Ellipta 100-62.5-25 mcg Dsdv Generic drug: rtwclcowdbk-byiixoafw-kuukzbma zolpidem 10 mg tablet Commonly known as: [...] Your Medications These medications were sent to [facility] [id number] [facility] [address] [facility] [address] [address] [id number] furosemide 20 MG tablet levoFLOXacin 750 MG tablet Physician(s) Family: Flash Lovelace MD, , Address: [address] [place], [place] [id number] Follow Up: Dashawn Orosco DPM [address] [phone] Schedule an appointment as soon as possible for a visit in 1 week(s) [facility] [address] [place] [address] Follow up Thank you for allowing us to participate in your care. Schedule an appt with your established transition teacher in [place]. Call us with any questions. Angela Guerra MD [address] [place] [address] [address] [phone] Call in 4 week(s) Call in 4-[address] weeks [address] follow up CT chest Additional Information: Patient seen and examined day of discharge. For more information regarding patient's care, including complete radiology reports, please contact [facility] at Patient instructions, including activity, were given to the patient/family at discharge. Please seethe After Visit Summary in the medical record for details. Time spent on discharge: > 30 minutes Completed by: Vickey Dawn on 11/08/22, 11:30 AM documented in this [id number] Consult note* Monica Vázquez RN - 11/07/2022 [...] of early recognition and report to their transition teacher,PCP or health care provider. Daily weight monitoring [...] fluid and lifestyle changes. MATERIALS, RESOURCES GIVEN: [facility] Guide to Living with Heart Failure book, 5 day low sodium+ Diabetic sample menu. Clinical references attached to AVS. [id number] Consult note* Monica Vázquez RN - 11/07/2022 [...] of early recognition and report to their transition teacher,PCP or health care provider. Daily weight monitoring [...] fluid and lifestyle changes. MATERIALS, RESOURCES GIVEN: [facility] Guide to Living with Heart Failure book, 5 day low sodium+ Diabetic sample menu. Clinical references attached to AVS. * Kory Mei CNP - 11/07/2022 10:11 AM EDTAssociated Order(s): IP CONSULT TO CARDIOLOGY General Cardiology Inpatient Consult Heart & Vascular [facility] 11/07/2022 Kory Mei CNP [facility] Rounding RN [phone] Patient: Tristin Powell Date of : 1940 (82 y.o.) Referring Provider: Refer to consult order in electronic medical record PCP: Flash Lovelace MD Sleeve Machine Tender: Follows with cardiology at [facility] Assessment/Plan: Atypical chest pain Elevated troponins [...] consulted. -Follow up with PCP or personal transition teacher in 1-2 weeks Coronary artery disease History of multiple stents and subsequent coronary artery bypass graft x 3 (CHAVEZ to Diag, SVG to OM1, SVG to PDA) at [facility] 10/2016 Left heart catheterization prior to [...] as outpatient for pneumonia and seen at [facility] ED on 10/30 for fever, persistent frequent cough with associated chest pain, n/v, decrease appetite, weakness, and mild dyspnea. Per patient was told by PCP that there was also Fluid on his lungs . Normal BNP at [facility] ED. Discharged on ATB. Since admit [...] bypass graft. Not following routinely with his transition teacher. Imaging: I independently reviewed the EKG and agree with the interpretation(s) with the following comments. SR, isolated flat T wave lead III; ECG today with chest pain: Sr with occasional PVC, TWA lead III,aVF EKG 12-lead Final Result by Interface, Lab Results In [place] (11/03/2022 1658) Echocardiogram complete w contrast Final [...] Hyperlipidemia Hypertension PAD (peripheral artery disease) ([facility]) 01/21/2022 Prostate cancer ([facility]) Vascular disease Past Surgical History: Procedure Laterality Date AMPUTATION TRANSMETATARSAL Left 10/08/2018 Procedure: LEFT MIDFOOT AMPUTATION; Surgeon: Flynn Mann DPM; Location: [facility] OR; Service: Podiatry ANKLE SURGERY Left BYPASS PERONEAL FEMORAL Right 09/07/2018 Procedure: BYPASS PERONEAL FEMORAL, RIGHT SAPHENOUS VEIN HARVEST, COMPLETION ANGIOGRAM; Surgeon: Mohsen Sarabia MD; Location: [facility]; Service: Cardiovascular CARDIAC CATHETERIZATION Left 09/05/2018 Procedure: Angio Lower Extremity; Surgeon: Ben Hahn MD; Location: [facility]; Service: Cardiovascular CARDIAC SURGERY 2017 triple bypass [...] flush 5 mL 5 mL Intravenous Q8H [facility] Duke Claros MD 5 mL at [...] cardiac issues or concerns. Jaziel Jeffries MD, [facility] Inpatient Rounding [phone] Office [phone] * Aaron Fenton, DPM - 11/07/2022 7:07 AM EDTAssociated Order(s): IP CONSULT TO PODIATRY Critical Limb Care Consult Note Tristin Powell AGE: 82 y.o. GENDER: male : 1940 EPISODE DATE: 11/03/2022 Assessment/Plan: Tristin Powell is an 82 year old male with a history of Prostate Cancer, CAD, PAD (left foot amputation 2018), Hypertension, HFpEF who presented to [facility] 11/03/2022 with persistent pneumonia despite #2 [...] ankle. He will need to go [facility] an adjustment to help prevent [...] Hyperlipidemia Hypertension PAD (peripheral artery disease) ([facility]) 01/21/2022 Prostate cancer ([facility]) Vascular disease PAST SURGICAL HISTORY Past Surgical History: Procedure Laterality Date AMPUTATION TRANSMETATARSAL Left 10/08/2018 Procedure: LEFT MIDFOOT AMPUTATION; Surgeon: Flynn Mann DPM; Location: [facility]; Service: Podiatry ANKLE SURGERY Left BYPASS PERONEAL FEMORAL Right 09/07/2018 Procedure: BYPASS PERONEAL FEMORAL, RIGHT SAPHENOUS VEIN HARVEST, COMPLETION ANGIOGRAM; Surgeon: Mohsen Sarabia MD; Location: [facility]; Service: Cardiovascular CARDIAC CATHETERIZATION Left 09/05/2018 Procedure: Angio Lower Extremity; Surgeon: Ben Hahn MD; Location: [facility]; Service: Cardiovascular CARDIAC SURGERY 2017 triple bypass [...] Nare route daily . 16 g 12 zcaspznknur-ranjpwixw-ulngsuqg (Trelegy Ellipta) 100-62.5-25 mcg DsDv 1 puff [...] 6' 1 Wt 113.4 kg (250 lb) JaW676% BMI 32.98 kg/m PHYSICAL EXAM General: The [...] intolerance. 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 [...] recently Prior Level of Function Level of [place] - Transfers/Ambulation/Mobility: Independent with household ambulation, Independent with community ambulation Level of [place] - ADLs: Independent Level of [place] - Homemaking: Independent Driving: Patient drives Past Medical History: Diagnosis Date Arthritis Avascular necrosis of bone of hip ([facility]) Claudication (HCC) Coronary artery disease Herpes zoster Hyperlipidemia Hypertension PAD (peripheral artery disease) ([facility]) 01/21/2022 Prostate cancer ([facility]) Vascular disease Past Surgical History: Procedure Laterality Date AMPUTATION TRANSMETATARSAL Left 10/08/2018 Procedure: LEFT MIDFOOT AMPUTATION; Surgeon: Flynn Mann DPM; Location: [facility]; Service: Podiatry ANKLE SURGERY Left BYPASS PERONEAL FEMORAL Right 09/07/2018 Procedure: BYPASS PERONEAL FEMORAL, RIGHT SAPHENOUS VEIN HARVEST, COMPLETION ANGIOGRAM; Surgeon: Mohsen Sarabia MD; Location: [facility]; Service: Cardiovascular CARDIAC CATHETERIZATION Left 09/05/2018 Procedure: Angio Lower Extremity; Surgeon: Ben Hahn MD; Location: [facility]; Service: Cardiovascular CARDIAC SURGERY 2017 triple bypass [...] Tristin Powell Admit Date: [id number] MR #: [id number] : 1940 Physicians: Flash Lovelace MD (Family); [...] CAD, HLD, HTN, prostate cancer presenting to [facility] 11/03 with CAP. Patient also reports [...] MIDFOOT AMPUTATION; Surgeon: Flynn Mann DPM; Location: [facility] OR; Service: Podiatry ANKLE SURGERY Left BYPASS PERONEAL FEMORAL Right 09/07/2018 Procedure: BYPASS PERONEAL FEMORAL, RIGHT SAPHENOUS VEIN HARVEST, COMPLETION ANGIOGRAM; Surgeon: Mohsen Sarabia MD; Location: [facility]; Service: Cardiovascular CARDIAC CATHETERIZATION Left 09/05/2018 Procedure: Angio Lower Extremity; Surgeon: Ben Hahn MD; Location: [facility]; Service: Cardiovascular CARDIAC SURGERY 2017 triple bypass [...] sprays by Each Nare route daily . gzwfzbrsged-qbaeepnry-tbmlayfs (Trelegy Ellipta) 100-62.5-25 mcg DsDv 1 puff [...] his primary care physician. documented in this [id number] Consult note* Kory Mei CNP - 11/07/2022 10:11 AM EDTAssociated Order(s): IP CONSULT TO CARDIOLOGY General Cardiology Inpatient Consult Heart & Vascular [facility] 11/07/2022 Kory Mei CNP [facility] Rounding RN [phone] Patient: Tristin Powell Date of : 1940 (82 y.o.) Referring Provider: Refer to consult order in electronic medical record PCP: Flash Lovelace MD Sleeve Machine Tender: Follows with cardiology at [facility] Assessment/Plan: Atypical chest pain Elevated troponins [...] consulted. -Follow up with PCP or personal transition teacher in 1-2 weeks Coronary artery disease History of multiple stents and subsequent coronary artery bypass graft x 3 (CHAVEZ to Diag, SVG to OM1, SVG to PDA) at [facility] in [place] 10/2016 Left heart catheterization prior to coronary [...] as outpatient for pneumonia and seen at [facility] ED on 10/30 for fever, persistent frequent cough with associated chest pain, n/v, decrease appetite, weakness, and mild dyspnea. Per patient was told by PCP that there was also Fluid on his lungs . Normal BNP at [facility] ED. Discharged on ATB. Since admit [...] bypass graft. Not following routinely with his transition teacher. Imaging: I independently reviewed the EKG and agree with the interpretation(s) with the following comments. SR, isolated flat T wave lead III; ECG today with chest pain: Sr with occasional PVC, TWA lead III,aVF EKG 12-lead Final Result by Interface, Lab Results In [place] [facility] [facility] (11/03/2022 1658) Echocardiogram complete w contrast [...] Hyperlipidemia Hypertension PAD (peripheral artery disease) ([facility]) 01/21/2022 Prostate cancer ([facility]) Vascular disease Past Surgical History: Procedure Laterality Date AMPUTATION TRANSMETATARSAL Left 10/08/2018 Procedure: LEFT MIDFOOT AMPUTATION; Surgeon: Flynn Mann DPM; Location: [facility]; Service: Podiatry ANKLE SURGERY Left BYPASS PERONEAL FEMORAL Right 09/07/2018 Procedure: BYPASS PERONEAL FEMORAL, RIGHT SAPHENOUS VEIN HARVEST, COMPLETION ANGIOGRAM; Surgeon: Mohsen Sarabia MD; Location: [facility]; Service: Cardiovascular CARDIAC CATHETERIZATION Left 09/05/2018 Procedure: Angio Lower Extremity; Surgeon: Ben Hahn MD; Location: [facility]; Service: Cardiovascular CARDIAC SURGERY 2017 triple bypass [...] cardiac issues or concerns. Jaziel Jeffries MD, [facility] Inpatient Rounding [phone] Office [phone] [facility] Work Phone: 1(146) 635-922403-13-2023 Consult note* Aaron Fenton DPM - 11/07/2022 7:07 AM EDTAssociated Order(s): IP CONSULT TO PODIATRY Critical Limb Care Consult Note Tristin Powell AGE: 82 y.o. GENDER: male : 1940 EPISODE DATE: 11/03/2022 Assessment/Plan: Tristin Powell is an 82 year old male with a history of Prostate Cancer, CAD, PAD (left foot amputation 2018), Hypertension, HFpEF who presented to [facility] 11/03/2022 with persistent pneumonia despite #2 [...] ankle. He will need to go to [facility] for an adjustment to help prevent [...] Avascular necrosis of bone of hip ([facility]) Claudication ([facility]) Coronary artery disease Herpes zoster Hyperlipidemia Hypertension PAD (peripheral artery disease) ([facility]) 01/21/2022 Prostate cancer ([facility]) Vascular disease PAST SURGICAL HISTORY Past Surgical History: Procedure Laterality Date AMPUTATION TRANSMETATARSAL Left 10/08/2018 Procedure: LEFT MIDFOOT AMPUTATION; Surgeon: Flynn Mann DPM; Location: [facility]; Service: Podiatry ANKLE SURGERY Left BYPASS PERONEAL FEMORAL Right 09/07/2018 Procedure: BYPASS PERONEAL FEMORAL, RIGHT SAPHENOUS VEIN HARVEST, COMPLETION ANGIOGRAM; Surgeon: Mohsen Sarabia MD; Location: [facility]; Service: Cardiovascular CARDIAC CATHETERIZATION Left 09/05/2018 Procedure: Angio Lower Extremity; Surgeon: Ben Hahn MD; Location: [facility]; Service: Cardiovascular CARDIAC SURGERY 2017 triple bypass [...] Nare route daily . 16 g 12 qeovwqxbxts-zlrxnviyh-vvmsxgkw (Trelegy Ellipta) 100-62.5-25 mcg DsDv 1 puff [...] 6' 1 Wt 113.4 kg (250 lb) NnL429% BMI 32.98 kg/m PHYSICAL EXAM General: The [...] Fenton DPM 11/07/2022 at 7:08 AM ote [facility] Work Phone: 1(448) 346-533703-11-2023 Note* Plan of Care - Alma Delia [...] Completed Goal: Knowledge of Enviroment Outcome: Completed [id number] Miscellaneous Notes* Plan of Care - Alma [...] in both lower extremities to approximately the qxl-ka-ixzej calf area bilaterally, but there are no signs of infection. There is no redness. documented in this [id number] Consult note* Lyn Cerrato OT - 11/04/2022 [...] intolerance. 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 [...] recently Prior Level of Function Level of [place] - Transfers/Ambulation/Mobility: Independent with household ambulation, Independent with community ambulation Level of [place] - ADLs: Independent Level of [place] - Homemaking: Independent Driving: Patient drives Past Medical History: Diagnosis Date Arthritis Avascular necrosis of bone of hip (HCC) Claudication (HCC) Coronary artery disease Herpes zoster Hyperlipidemia Hypertension PAD (peripheral artery disease) ([facility]) 01/21/2022 Prostate cancer ([facility]) Vascular disease Past Surgical History: Procedure Laterality Date AMPUTATION TRANSMETATARSAL Left 10/08/2018 Procedure: LEFT MIDFOOT AMPUTATION; Surgeon: Flynn Mann DPM; Location: [facility]; Service: Podiatry ANKLE SURGERY Left BYPASS PERONEAL FEMORAL Right 09/07/2018 Procedure: BYPASS PERONEAL FEMORAL, RIGHT SAPHENOUS VEIN HARVEST, COMPLETION ANGIOGRAM; Surgeon: Mohsen Sarabia MD; Location: [facility]; Service: Cardiovascular CARDIAC CATHETERIZATION Left 09/05/2018 Procedure: Angio Lower Extremity; Surgeon: Ben Hahn MD; Location: [facility]; Service: Cardiovascular CARDIAC SURGERY 2017 triple bypass [...] completion of Occupational Therapy Plan of Care. [id number] Consult note* Eliud Thompson RN - 11/04/2022 11:08 AM EST Associated Order(s): IP CONSULT TO CARDIOLOGY - PERIPHERAL VASC DISEASE Information only. Cardiology consult completed by Aminah Calixto [facility] 3.10.23. See note for details. [id number] Note* Quick Note - Rojelio Mackenzie DO [...] follow-up Rojelio Mackenzie, PGY-4 Orthopedic Surgery Resident [facility] Work Phone: 1(944) 487-563003-10-2023 Note* Quick Note - Catina Calixto CNP - 11/04/2022 8:06 AM EST Received consult for patient with chronic PAD s/p L fem-peroneal (GSV) bypass per Dr. Sarabia in 2019. He has no acute issues or lower extremity wounds and denies BLE claudication. No indication for additional inpatient work up/resting. Patient can follow up with Dr. Sarabia as an outpatient. [id number] Evaluation + Plan note* Assessment & Plan [...] 2022 was known to be reduced (0.5) [id number] Evaluation + Plan note* Assessment & Plan [...] Dr. Messina as needed if symptoms persist [id number] Consult note* Gustavo Macdonald CNP - 11/04/2022 6:50 AM EST Associated Order(s): IP CONSULT TO ORTHOPEDIC SURGERY CONSULT NOTE Patient Name: Tristin Powell Admit Date: [id number] MR #: [id number] : 1940 Physicians: Flash Lovelace MD (Family); [...] CAD, HLD, HTN, prostate cancer presenting to [facility] 11/03 with CAP. Patient also reports [...] Avascular necrosis of bone of hip ([facility]) Claudication ([facility]) Coronary artery disease Herpes zoster Hyperlipidemia Hypertension PAD (peripheral artery disease) ([facility]) 01/21/2022 Prostate cancer ([facility]) Vascular disease Past Surgical History: Procedure Laterality Date AMPUTATION TRANSMETATARSAL Left 10/08/2018 Procedure: LEFT MIDFOOT AMPUTATION; Surgeon: Flynn Mann DPM; Location: [facility] OR; Service: Podiatry ANKLE SURGERY Left BYPASS PERONEAL FEMORAL Right 09/07/2018 Procedure: BYPASS PERONEAL FEMORAL, RIGHT SAPHENOUS VEIN HARVEST, COMPLETION ANGIOGRAM; Surgeon: Mohsen Sarabia MD; Location: [facility]; Service: Cardiovascular CARDIAC CATHETERIZATION Left 09/05/2018 Procedure: Angio Lower Extremity; Surgeon: Ben Hahn MD; Location: [facility]; Service: Cardiovascular CARDIAC SURGERY 2017 triple bypass [...] sprays by Each Nare route daily . tipxjmynqbt-wsmzwybxw-qakjyxtg (Trelegy Ellipta) 100-62.5-25 mcg DsDv 1 puff [...] should follow-up with his primary care physician. [id number] Note* Plan of Care - Deisi Gimenez RN - 11/04/2022 3:01 AM EST Problem: Actual or potential alteration in health Goal: Absence of healthcare acquired conditions Outcome: Partially Met Goal: Knowledge of Interdisciplinary Plan of Care Outcome: Partially Met Goal: Knowledge of Enviroment Outcome: Partially Met Problem: Pressure Ulcer - Risk of Goal: Absence of pressure ulcer Outcome: Partially Met [id number] History and physical note* Duke Claros MD - 11/03/2022 9:58 PM EST [facility] History and Physical Note 11/03/22 Tristin Bazan Sherry 1940 [id number] Assessment/Plan: Tristin Powell is a 82 y.o. male with a history of Prostate Cancer, CAD, PAD (left foot amputation 2018) HTN, HFpEF who presented to [facility] 11/03/2022 with persistent pneumonia despite #2 [...] amputation 2018) HTN, HFpEF who presented to [facility] 11/03/2022 with persistent pneumonia despite #2 [...] Hyperlipidemia Hypertension PAD (peripheral artery disease) ([facility]) 01/21/2022 Prostate cancer ([facility]) Vascular disease Past Surgical History: Procedure Laterality Date AMPUTATION TRANSMETATARSAL Left 10/08/2018 Procedure: LEFT MIDFOOT AMPUTATION; Surgeon: Flynn Mann DPM; Location: [facility] OR; Service: Podiatry ANKLE SURGERY Left BYPASS PERONEAL FEMORAL Right 09/07/2018 Procedure: BYPASS PERONEAL FEMORAL, RIGHT SAPHENOUS VEIN HARVEST, COMPLETION ANGIOGRAM; Surgeon: Mohsen Sarabia MD; Location: [facility]; Service: Cardiovascular CARDIAC CATHETERIZATION Left 09/05/2018 Procedure: Angio Lower Extremity; Surgeon: Ben Hahn MD; Location: [facility]; Service: Cardiovascular CARDIAC SURGERY 2017 triple bypass [...] 64 GLUCOSE mg/dL 92 CALCIUM mg/dL 9.5 [id number] History and physical note* Dkue Claros MD - 11/03/2022 9:58 PM EST [facility] History and Physical Note 11/03/22 Tristin Powell 1940 [id number] Assessment/Plan: Tristin Powell is a 82 y.o. male with a history of Prostate Cancer, CAD, PAD (left foot amputation 2018) HTN, HFpEF who presented to [facility] 11/03/2022 with persistent pneumonia despite #2 [...] amputation 2018) HTN, HFpEF who presented to [facility] 11/03/2022 with persistent pneumonia despite #2 [...] artery disease) (HCC) 01/21/2022 Prostate cancer ([facility]) Vascular disease Past Surgical History: Procedure Laterality Date AMPUTATION TRANSMETATARSAL Left 10/08/2018 Procedure: LEFT MIDFOOT AMPUTATION; Surgeon: Flynn Mann DPM; Location: [facility] OR; Service: Podiatry ANKLE SURGERY Left BYPASS PERONEAL FEMORAL Right 09/07/2018 Procedure: BYPASS PERONEAL FEMORAL, RIGHT SAPHENOUS VEIN HARVEST, COMPLETION ANGIOGRAM; Surgeon: Mohsen Sarabia MD; Location: [facility]; Service: Cardiovascular CARDIAC CATHETERIZATION Left 09/05/2018 Procedure: Angio Lower Extremity; Surgeon: Ben Hahn MD; Location: [facility]; Service: Cardiovascular CARDIAC SURGERY 2017 triple bypass [...] 92 CALCIUM mg/dL 9.5 documented in this [id number] Emergency department Note* MIGUE Berumen - 11/03/2022 9:35 PM EST [facility] to write admission orders. [id number]. [id number] Emergency department Note* MIGUE Berumen - 11/03/2022 9:35 PM EST [facility] to write admission orders. [phone]. * Sharron Khan PA-C - 11/03/2022 5:46 [...] so he went to the ED in [facility]. He had a repeat chest x-ray [...] Normal BASIC METABOLIC PANEL - Normal Narrative: [facility] has implemented the eGFR calculation approach that does not have a coefficient for race that conforms to the NKF-ASN Task Force Recommendations. CBC AND DIFFERENTIAL Narrative: The following orders were created for panel order CBC w/ Diff. Procedure Abnormality Status --------- ------ CBC Auto Differential[[id number]] Abnormal Final result Please view results for [...] this documentation, there is a possibility of rpeuu-o-rcfh errors inherent to this technology that may be missed during proofreading.) Sharron Khan PA-C 11/03/22 2547 * Aimee Owens RN - 11/03/2022 12:43 PM EST Pt arrives to the ED with multiple complaints. Per daughter patient has fluid on his lungs and there is concern for pneumonia. Daughter also states that there is concern for infection in his foot amputation from 2019. documented in this [id number] Note* ED Attestation Note - Ronnie Montoya [...] in both lower extremities to approximately the nfg-ma-cvwjw calf area bilaterally, but there are no signs of infection. There is no redness. [facility] Work Phone: [phone] Physician Emergency department Note* Sharron Khan PA-C [...] so he went to the ED in [facility]. He had a repeat chest x-ray [...] Normal BASIC METABOLIC PANEL - Normal Narrative: [facility] has implemented the eGFR calculation approach that does not have a coefficient for race that conforms to the NKF-ASN Task Force Recommendations. CBC AND DIFFERENTIAL Narrative: The following orders were created for panel order CBC w/ Diff. Procedure Abnormality Status --------- ------ CBC Auto Differential[[id number]] Abnormal Final result Please view results for [...] this documentation, there is a possibility of pfmam-y-nufu errors inherent to this technology that may be missed during proofreading.) Sharrondena Khan PA-C 11/03/222150 [facility] Work Phone: [phone] Emergency department Triage note* Aimee Owens RN - 11/03/2022 12:43 PM EST Pt arrives to the ED with multiple complaints. Per daughter patient has fluid on his lungs and there is concern for pneumonia. Daughter also states that there is concern for infection in his foot amputation from 2019. [id number] History of Present illness Narrative* Violetta Borjas MA - 09/20/2022 11:[address] Sarabia has ordered a carotid duplex. An attempt was made by phone and a letter was mailed with no response. Patient is due for testing for PAD 05/20. documented in this [id number] History of Present illness Narrative* Dahiana Coelho - 07/14/2022 11:00 AM EST Ortho Nurse - Established Patient Intake Room#: 5 Date: 07/14/2022 10:49 AM Patient: Tristin Powell . MR#: [id number] : 1940 Age: 82 y.o. 1yr R [...] has No Known Allergies. * Scar Ortega APRN-HEALTHCARE OR MEDICAL - 07/14/2022 11:00 AM EST HPI: Patient [...] 10:49 AM Patient: Tristin Powell . MR#: [id number] : 1940 Age: 82 y.o. 1yr R [...] has No Known Allergies. documented in this [facility]09-06-2022 Evaluation note* Encounter Date Diagnosis Assessment [...] will see him back in 6 months. [facility] 08-23-2022 Evaluation note* Encounter Date Diagnosis [...] He understands and agrees with that plan. [facility] 08-22-2022 History of Present illness Narrative* Aaron Fenton DPM - 04/18/2022 5:23 PM EDT Refer to note during admission documented in this [id number] Hospital course Narrative* Alexander Pascual MD - 04/15/2022 6:51 PM EDT Images from the original note were not included. [facility] DISCHARGE SUMMARY Tristin Powell Account: [id number] Admitted: 04/14/2022 Discharge Date/Time: 04/15/22 / 7:44 PM Clinical Summary Handoff to PCP Routine hospital follow up Tristin Powell is a 82 y.o. male with a history of HTN, HFpEF, PAD with bypass/stenting/amputation, CAD who recently discharged 01/21/22 after cellulitis L ankle who presented to [facility] Observation 04/14/2022 with worsening R leg [...] Physician(s) Family: Flash Lovelace MD, , Address: [address] [place] [address] Follow Up: Mohsen Sarabia MD [facility] [address] Follow up Call office to schedule followup appointment in ~2 weeks Flash Lovelace MD [address] [place] [address] Follow up As needed Laboratory Follow Up by [facility]: None Additional Information: Patient seen and examined day of discharge. For more information regarding patient's care, including complete radiology reports, please contact [facility] at Patient instructions, including activity, were given to the patient/family at discharge. Please seethe After Visit Summary in the medical record for details. Completed by: Alexander Pascual on 04/15/22, 7:44 PM documented in this [id number] Note* Plan of Care - Lizz Damon [...] Goal: Absence of falls Outcome: Partially Met [id number] Miscellaneous Notes* Plan of Care - Lizz [...] falls Outcome: Partially Met documented in this [id number] History of Present illness Narrative* Rima Wu DO - 04/15/2022 1:01 PM EDT [facility] 04/15/2022 Tristin Powell 1940 [id number] Assessment/Plan: Tristin Hortensia Powell is a 82 y.o. male with a history of HTN, HFpEF, PAD with bypass/stenting/amputation, CAD who recently discharged 01/21/22 after cellulitis L ankle who presented to [facility] Observation 04/14/2022 with worsening R leg [...] Estimated discharge date:04/15/22 Subjective: Patient new to al, seen and examined, with labs/imaging reviewed and [...] Date INR 1.1 04/14/2022 documented in this [id number] Consult note* Darrick Calixto DO - 04/15/2022 [...] CAD s/p CABG x3 who presented to [facility] on 04/14/2022 with CLI of RLE. [...] DO General Surgery PGY-2 Please contact surgical administration intern environmental studies faculty member 5PM-6AM and weekends - #[phone] VTS Pager - #[phone] HISTORY OF PRESENT ILLNESS Tristin Powell is a 82 y.o. male with history of PAD, s/p L transmetatarsal amputation (2019, Dr. Mann), s/p peroneal femoral bypass R saphenous vein harvest (2019, Dr. Sarabia), CAD s/p CABG x3 who presented to [facility] on 04/14/2022 with CLI of RLE. Patient presenting with 6 weeks of worsened right lower extremity pain. Patient is limited in his mobility due to his left-sided TMA. Patient reports increasing numbness and pain in his foot as well as claudication symptoms while ambulating. Patient was directed to [facility] by his PCP for evaluation. Per discussion with patient and his son, his lower extremity changes are chronic in nature and he does not have an acute surgical emergency. Patient given the option of outpatient follow-up given these nonacute changes however patient request to stay until the morning to see Dr. Sarabia for evaluation as he lives an hour and in a correction and has difficulty getting here to see [...] Avascular necrosis of bone of hip ([facility]) Claudication ([facility]) Coronary artery disease Herpes zoster Hyperlipidemia Hypertension PAD (peripheral artery disease) ([facility]) 01/21/2022 Prostate cancer ([facility]) Vascular disease Past Surgical History: Procedure Laterality Date AMPUTATION TRANSMETATARSAL Left 10/08/2018 Procedure: LEFT MIDFOOT AMPUTATION; Surgeon: Flynn Mann DPM; Location: [facility] OR; Service: Podiatry ANKLE SURGERY Left BYPASS PERONEAL FEMORAL Right 09/07/2018 Procedure: BYPASS PERONEAL FEMORAL, RIGHT SAPHENOUS VEIN HARVEST, COMPLETION ANGIOGRAM; Surgeon: Mohsen Sarabia MD; Location: [facility]; Service: Cardiovascular CARDIAC CATHETERIZATION Left 09/05/2018 Procedure: Angio Lower Extremity; Surgeon: Ben Hahn MD; Location: [facility]; Service: Cardiovascular CARDIAC SURGERY 2017 triple bypass EGD N/A 10/10/2018 Procedure: ESOPHAGOGASTRODUODENOSCOPY; Surgeon: Ben Jensen MD; Location: [facility]; Service: Gastroenterology EYE SURGERY Right 2015 FOOT [...] personally examined the patient and agree with resident/RESIDENT CARE DIRECTOR/PA assessment and plan with the following additional [...] it can be done as an outpatient. [facility] Work Phone: [phone] Consult note* Darrick Calixto DO - 04/15/2022 [...] CAD s/p CABG x3 who presented to [facility] on 04/14/2022 with CLI of RLE. [...] Calixto, General Surgery PGY-2 Please contact surgical administration intern environmental studies faculty member 5PM-6AM and weekends - #[phone] VTS Pager - #[phone] HISTORY OF PRESENT ILLNESS Tristin Powell is a 82 y.o. male with history of PAD, s/p L transmetatarsal amputation (2019, Dr. Mann), s/p peroneal femoral bypass R saphenous vein harvest (2019, Dr. Sarabia), CAD s/p CABG x3 who presented to [facility] on 04/14/2022 with CLI of RLE. Patient presenting with 6 weeks of worsened right lower extremity pain. Patient is limited in his mobility due to his left-sided TMA. Patient reports increasing numbness and pain in his foot as well as claudication symptoms while ambulating. Patient was directed to [facility] by his PCP for evaluation. Per discussion with patient and his son, his lower extremity changes are chronic in nature and he does not have an acute surgical emergency. Patient given the option of outpatient follow-up given these nonacute changes however patient request to stay until the morning to see Dr. Sarabia for evaluation as he lives an hour and in a correction and has difficulty getting here to see [...] Avascular necrosis of bone of hip ([facility]) Claudication ([facility]) Coronary artery disease Herpes zoster Hyperlipidemia Hypertension PAD (peripheral artery disease) ([facility]) 01/21/2022 Prostate cancer ([facility]) Vascular disease Past Surgical History: Procedure Laterality Date AMPUTATION TRANSMETATARSAL Left 10/08/2018 Procedure: LEFT MIDFOOT AMPUTATION; Surgeon: Flynn Mann DPM; Location: [facility] OR; Service: Podiatry ANKLE SURGERY Left BYPASS PERONEAL FEMORAL Right 09/07/2018 Procedure: BYPASS PERONEAL FEMORAL, RIGHT SAPHENOUS VEIN HARVEST, COMPLETION ANGIOGRAM; Surgeon: Mohsen Sarabia MD; Location: [facility]; Service: Cardiovascular CARDIAC CATHETERIZATION Left 09/05/2018 Procedure: Angio Lower Extremity; Surgeon: Ben Hahn MD; Location: [facility]; Service: Cardiovascular CARDIAC SURGERY 2017 triple bypass [...] personally examined the patient and agree with resident/RESIDENT CARE DIRECTOR/PA assessment and plan with the following additional [...] done as an outpatient. documented in this [id number] Emergency department Note* Rose Bautista RN - 04/15/2022 12:13 AM EDT Patient moved into hospital bed [id number] Emergency department Note* Rose Bautista RN - 04/15/2022 12:13 AM EDT Patient moved into hospital bed * MIGUE Berumen - 04/14/2022 11:24 PM EDT [facility] to write admission orders [id number]. * Carson Brock MD - 04/14/2022 8:24 PM EDT [facility] EMERGENCY DEPARTMENT PCP - Flash Lovelace MD Chief Complaint Patient presents with Leg Swelling HPI MEDICAL DECISION MAKING 82-year-old male presents to [facility] emergency department chief complaint of [...] an ultrasound ordered by his doctor at [facility] with findings concerningfor stenosis to the superficial femoral artery as well as an occlusion of his popliteal artery. His primary doctor recommended he present here for evaluation from his vascular surgeon Dr. Sarabia and patient presents here via triage. Patient reports compliance with home medications including anticoagulation with Xarelto and aspirin. 82-year-old male presents to [facility] emergency department chief plaint of [...] time. He will be admitted to the [facility] observation unit. CLINICAL IMPRESSION 1. PAD [...] limits BASIC METABOLIC PANEL - Normal Narrative: [facility] has implemented the eGFR [...] Procedure Abnormality Status --------- ------ CBC Auto Differential[[id number]] Abnormal Final result Please view results for [...] 5. Chronic findings including severe pancolonic diverticulosis. [employer] Workstation ID: [id number] Medications Ordered/Given During ED [...] Hyperlipidemia Hypertension PAD (peripheral artery disease) ([facility]) 01/21/2022 Prostate cancer (HCC) Vascular disease Past Surgical History Past Surgical History: Procedure Laterality Date AMPUTATION TRANSMETATARSAL Left 10/08/2018 Procedure: LEFT MIDFOOT AMPUTATION; Surgeon: Flynn Mann DPM; Location: [facility] OR; Service: Podiatry ANKLE SURGERY Left BYPASS PERONEAL FEMORAL Right 09/07/2018 Procedure: BYPASS PERONEAL FEMORAL, RIGHT SAPHENOUS VEIN HARVEST, COMPLETION ANGIOGRAM; Surgeon: Mohsen Sarabia MD; Location: [facility]; Service: Cardiovascular CARDIAC CATHETERIZATION Left 09/05/2018 Procedure: Angio Lower Extremity; Surgeon: Ben Hahn MD; Location: [facility]; Service: Cardiovascular CARDIAC SURGERY 2017 triple bypass [...] portions of this note were created using [employer] voice recognition software.* Carson Brock MD 04/14/22 1807 * Amairani Bucio RN - 04/14/2022 7:29 PM EDT Patient arrives in a wheelchair with a cc of right leg swelling. The patient was at [facility] and they told him he has a blood clot in the right leg and he needs to come down to [facility] to see hisvascular surgeon that he sees here. documented in this [id number] History and physical note* Jagruti Moore Jr., MD - 04/14/2022 11:51 PM EDT Images from the original note were not included. [place] [facility] History and Physical Note 04/15/22 Tristin Powell 1940 [id number] Assessment/Plan: Tristin Powell is a 82 y.o. male with a history of HTN, HFpEF, PAD with bypass/stenting/amputation, CAD who recently discharged 01/21/22 after cellulitis L ankle who presented to [facility] 04/14/2022 with worsening R leg [...] MIDFOOT AMPUTATION; Surgeon: Flynn Mann DPM; Location: [facility] OR; Service: Podiatry ANKLE SURGERY Left BYPASS PERONEAL FEMORAL Right 09/07/2018 Procedure: BYPASS PERONEAL FEMORAL, RIGHT SAPHENOUS VEIN HARVEST, COMPLETION ANGIOGRAM; Surgeon: Mohsen Sarabia MD; Location: [facility]; Service: Cardiovascular CARDIAC CATHETERIZATION Left 09/05/2018 Procedure: Angio Lower Extremity; Surgeon: Ben Hahn MD; Location: [facility]; Service: Cardiovascular CARDIAC SURGERY 2017 triple bypass [...] Results Component Value Date INR 1.1 04/14/2022 [id number] History and physical note* Jagruti Moore Jr., MD - 04/14/2022 11:51 PM EDT Images from the original note were not included. [facility] History and Physical Note 04/15/22 Tristin Powell 1940 [id number] Assessment/Plan: Tristin Powell is a 82 y.o. male with a history of HTN, HFpEF, PAD with bypass/stenting/amputation, CAD who recently discharged 01/21/22 after cellulitis L ankle who presented to [facility] 04/14/2022 with worsening R leg [...] MIDFOOT AMPUTATION; Surgeon: Flynn Mann DPM; Location: [facility]; Service: Podiatry ANKLE SURGERY Left BYPASS PERONEAL FEMORAL Right 09/07/2018 Procedure: BYPASS PERONEAL FEMORAL, RIGHT SAPHENOUS VEIN HARVEST, COMPLETION ANGIOGRAM; Surgeon: Mohsen Sarabia MD; Location: [facility]; Service: Cardiovascular CARDIAC CATHETERIZATION Left 09/05/2018 Procedure: Angio Lower Extremity; Surgeon: Ben Hahn MD; Location: [facility]; Service: Cardiovascular CARDIAC SURGERY 2017 triple bypass [...] Date INR 1.1 04/14/2022 documented in this [id number] Emergency department Note* MIGUE Berumen - 04/14/2022 11:24 PM EDT [facility] write admission orders [id number]. [id number] Physician Emergency department Note* Carson Brock MD - 04/14/2022 8:24 PM EDT [facility] EMERGENCY DEPARTMENT PCP - Flash Lovelace MD Chief Complaint Patient presents with Leg Swelling HPI MEDICAL DECISION MAKING 82-year-old male presents to [facility] emergency department chief complaint of [...] an ultrasound ordered by his doctor at [facility] with findings concerningfor stenosis to the superficial femoral artery as well as an occlusion of his popliteal artery. His primary doctor recommended he present here for evaluation from his vascular surgeon Dr. Sarabia and patient presents here via triage. Patient reports compliance with home medications including anticoagulation with Xarelto and aspirin. 82-year-old male presents to [facility] emergency department chief plaint of [...] time. He will be admitted to the [facility] observation unit. CLINICAL IMPRESSION 1. PAD [...] limits BASIC METABOLIC PANEL - Normal Narrative: [facility] has implemented the eGFR [...] Procedure Abnormality Status --------- ------ CBC Auto Differential[[id number]] Abnormal Final result Please view results for [...] Hyperlipidemia Hypertension PAD (peripheral artery disease) ([facility]) 01/21/2022 Prostate cancer (HCC) Vascular disease Past Surgical History Past Surgical History: Procedure Laterality Date AMPUTATION TRANSMETATARSAL Left 10/08/2018 Procedure: LEFT MIDFOOT AMPUTATION; Surgeon: Flynn Mann DPM; Location: [facility] OR; Service: Podiatry ANKLE SURGERY Left BYPASS PERONEAL FEMORAL Right 09/07/2018 Procedure: BYPASS PERONEAL FEMORAL, RIGHT SAPHENOUS VEIN HARVEST, COMPLETION ANGIOGRAM; Surgeon: Mohsen Sarabia MD; Location: [facility]; Service: Cardiovascular CARDIAC CATHETERIZATION Left 09/05/2018 Procedure: Angio Lower Extremity; Surgeon: Ben Hahn MD; Location: [facility]; Service: Cardiovascular CARDIAC SURGERY 2017 triple bypass [...] portions of this note were created using [employer] voice recognition software.* Carson Brock MD 04/14/22 2574 [facility] Work Phone: 1(825) 421-576208-18-2022 Emergency department Triage note* Amairani Bucio RN - 04/14/2022 7:29 PM EDT Patient arrives in a wheelchair with a cc of right leg swelling. The patient was at [facility] and they told him he has a blood clot in the right leg and he needs to come down to [facility] to see hisvascular surgeon that he sees here. [id number] History of Present illness Narrative* Katie Anna RN - 04/14/2022 5:54 PM EDT Vascular Resident paged twice, awaiting response Dr. Sarabia notified that patient is coming to [facility] ED for further evaluation. 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 He reports [...] MIDFOOT AMPUTATION; Surgeon: Flynn Mann DPM; Location: [facility] OR; Service: Podiatry ANKLE SURGERY Left BYPASS PERONEAL FEMORAL Right 09/07/2018 Procedure: BYPASS PERONEAL FEMORAL, RIGHT SAPHENOUS VEIN HARVEST, COMPLETION ANGIOGRAM; Surgeon: Mohsen Sarabia MD; Location: [facility]; Service: Cardiovascular CARDIAC CATHETERIZATION Left 09/05/2018 Procedure: Angio Lower Extremity; Surgeon: Ben Hahn MD; Location: [facility]; Service: Cardiovascular CARDIAC SURGERY 2017 triple bypass [...] Radiology, Cardiology, and Medications documented in this [id number] History of Present illness Narrative* Alma Delia Page RN - 01/21/2022 2:58 PM EDT This RN went over discharge instructions and prescriptions with the patient. Pt verbalized understanding. All questions were answered. IV was removed. All personal belongings sent home with patient. PT was taken down by wheelchair to Red main entrance. * Gustavo Gonzalez DO - 01/21/2022 7:01 AM EDT [facility] Inpatient Progress Note 01/21/2022 Tristin Powell 1940 [id number] Assessment/Plan: Tristin Powell is a 82 y.o. male with a history of HTN, CAD, PVD who presented to [facility] 01/18/2022 with progressive left ankle pain, redness, swelling not improved with oral antibiotics. Admit XR non-acute, temp 100.7, CRP 63.5, WBC 6.76, ESR 18. Cultures with no growth to date. LLE Cellulitis: Per chart, hx MRSA in 2019. Presented progressive severe left ankle pain, edema, warmth, tenderness x 3 days SENIOR BIOINFORMATICS SPECIALIST not improved with keflex/bactrim. Admit temp 100.7, has remained afebrile ever since. No leukocytosis. Admit blood cultures NGTD. Admit CTA/runoff with no evidence of deeper infection, LLE graft patent. Continue vancomycin, will plan to transition to PO Bactrim on 01/21.Continue pain control. Recommend outpatient follow-up with [facility] in [place]. Bilateral PAD: Per history. LLE angio w/ [...] pancreatic lesion.He will follow up with his insurance agent and [facility] in [place] to determine if his prothesis could be [...] calcified granulomas. -Solitary lung nodule malignancy risk (Leola) score: 17.6% -Recommend PET as an outpatient and follow up with [facility] closer to home. Possible biopsy iffindings persist. [...] Carson Banks MD 1:01 PM 01/20/22 Pager: [phone] Chief Complaint Chief Complaint Patient presents with [...] and recommend this to be done at [facility] with either Drs. Carson Gallagher or [...] 1200. Pharmacist: Rossana Fernandez RPh,PharmD Contact Number: [phone] ([employer]) or secure chat * Gustavo Gonzalez DO - 01/20/2022 7:01 AM EDT [facility] Inpatient Progress Note 01/20/2022 Tristin Powell 1940 [id number] Assessment/Plan: Tristin Powell is a 82 y.o. male with a history of HTN, CAD, PVD who presented to [facility] 01/18/2022 with progressive left ankle pain, redness, swelling not improved with oral antibiotics. Admit XR non-acute, temp 100.7, CRP 63.5, WBC 6.76, ESR 18. LLE Cellulitis: Per chart, hx MRSA in 2019. Presented progressive severe left ankle pain, edema, warmth, tenderness x 3 days SENIOR BIOINFORMATICS SPECIALIST not improved with keflex/bactrim. Admit temp 100.7, has remained afebrile ever since. No leukocytosis. Admit blood cultures NGTD. Admit CTA/runoff with no evidence of deeper infection, LLE graft patent. Continue vancomycin, will plan to transition to PO Bactrim on 01/21.Continue pain control. Recommend outpatient follow-up with [facility] in [place]. Bilateral PAD: Per history. LLE angio w/ [...] L Foot Amputation, CAD who presented to [facility] on 01/18/22 with 3-4 days of [...] improving. Discussed he should follow up with [facility] in [place] to further explore if his stump prothesis [...] Rosas MD - 01/19/2022 6:43 AM EDT [facility] Inpatient Progress Note 01/19/2022 Tristin Powell 1940 [id number] Assessment/Plan: Tristin Powell is a 82 y.o. male with a history of HTN, CAD, PVD who presented to [facility] 01/18/2022 with progressive left ankle pain, redness, swelling not improved with oral antibiotics. Admit XR non-acute, temp 100.7, CRP 63.5, WBC 6.76, ESR 18. LLE Cellulitis: Per chart, hx MRSA in 2018. Presented progressive severe left ankle pain, edema, warmth, tenderness x 3 days SENIOR BIOINFORMATICS SPECIALIST not improved with keflex/bactrim. Admit temp [...] L Foot Amputation, CAD who presented to [facility] on 01/18/22 with 3-4 days of [...] urine output (if available) daily.vancomyicin / aminoglycoside recommendations:[id number]:s} Pharmacy will continue to follow, order levels, and make adjustments as needed. Please call pharmacy with questions. Current antibiotic regimen includes: ceftriaxone 2000mg q24h Objective: Ht Readings from Last 1 Encounters: 01/18/22 6' 2 (188 cm) Wt Readings from Last 1 Encounters: 01/18/22 113.4 kg (250 lb) [place] body weight: 82.2 kg (181 lb 3.5 [...] Component Value Units Date/Time Blood Culture Aerobic/Anaerobic [[id number]] (Normal) Collected: 01/18/222104 Order Status: Completed Specimen: Blood, Peripheral Updated: 01/18/222357 Culture In Progress; No Growth to Date Blood Culture Aerobic/Anaerobic [[id number]] (Normal) Collected: 01/18/222104 Order Status: Completed Specimen: Blood, Peripheral Updated: 01/18/222357 Culture In Progress; No Growth to Date Pharmacist: El Owen RPh,PharmD Contact Number: documented in this [id number] Hospital course Narrative* Muna Otto MD - 01/21/2022 2:32 PM EDT Images from the original note were not included. [facility] DISCHARGE SUMMARY Tristin Powell Account: [id number] Admitted: 01/18/2022 PCP: Flash Lovelace MD Discharge [...] L Foot Amputation, CAD who presented to [facility] on 01/18/22 with 3-4 days of [...] lesion. He will follow up with his insurance agent (Dr. Mann) and [facility] in [place] to determine if his prothesis could be [...] Your Medications These medications were sent to [facility] [id number] [facility] [address] [address] [address] [place] [facility] [place] [address] albuterol 2.5 mg /3 mL (0.083 %) nebulizer solution sulfamethoxazole-trimethoprim 800-160 mg per tablet tiotropium bromide 2.5 mcg/actuation Mist Physician(s) Family: Flash Lovelace MD, , Address: [address] [place] [id number] Follow Up: Flash Lovelace MD [address] [place], [place] [id number] Follow up Carson Gallagher MD [address] [facility] [address] [facility] [id number] Follow up Please call to set up appointment to follow up on your lung nodule and newly diagnosed COPD (chronic obstructive pulmonary disease) Flynn Mann DPM [address] [facility] [address] [facility] [address] Schedule an appointment as soon as possible for a visit Additional Information: Patient seen and examined day of discharge. For more information regarding patient's care, including complete radiology reports, please contact [facility] at Patient instructions, including activity, were given to the patient/family at discharge. Please seethe After Visit Summary in the medical record for details. Time spent on discharge: > 30 minutes Completed by: Muna Otto on 01/21/22, 2:32 PM documented in this [id number] Hospital Discharge instructions * Discharge Instr - AVS First Page* Muna Otto MD - 01/21/2022 11:26 AM EDT Dear Mr. Powell, You came to [facility] for left ankle pain, redness, and [...] PCP to discuss further pancreatic workup - [facility] in [place], [place] to discuss your prosthetics. Thank you for letting us be a part of your care team, [facility] * Attachments The following attachments cannot be sent through Care Everywhere. * Cellulitis (Malian) * Pulmonary Nodules: General Info (Malian) documented in this [id number] Consult note* Leeanna Melgoza OT - 01/21/2022 [...] deficit. 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 The patient's compliance is a office equipment technician to return to prior level of function. [...] Function Receives Help From: Family Level of [place] - Transfers/Ambulation/Mobility: Independent with functional transfers, Independent with household ambulation, Independent with community ambulation Level of [place] - ADLs: Independent Level of [place] - Homemaking: Independent Driving: Patient drives Vocational: [...] MIDFOOT AMPUTATION; Surgeon: Flynn Mann DPM; Location: [facility]; Service: Podiatry ANKLE SURGERY Left BYPASS PERONEAL FEMORAL Right 09/07/2018 Procedure: BYPASS PERONEAL FEMORAL, RIGHT SAPHENOUS VEIN HARVEST, COMPLETION ANGIOGRAM; Surgeon: Mohsen Sarabia MD; Location: [facility]; Service: Cardiovascular CARDIAC CATHETERIZATION Left 09/05/2018 Procedure: Angio Lower Extremity; Surgeon: Ben Hahn MD; Location: [facility]; Service: Cardiovascular CARDIAC SURGERY 2017 triple bypass [...] completion of Occupational Therapy Plan of Care. [id number] Consult note* Leeanna Melgoza OT - 01/21/2022 [...] deficit. 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 The patient's compliance is a office equipment technician to return to prior level of function. [...] Function Receives Help From: Family Level of [place] - Transfers/Ambulation/Mobility: Independent with functional transfers, Independent with household ambulation, Independent with community ambulation Level of [place] - ADLs: Independent Level of [place] - Homemaking: Independent Driving: Patient drives Vocational: [...] MIDFOOT AMPUTATION; Surgeon: Flynn Mann DPM; Location: [facility]; Service: Podiatry ANKLE SURGERY Left BYPASS PERONEAL FEMORAL Right 09/07/2018 Procedure: BYPASS PERONEAL FEMORAL, RIGHT SAPHENOUS VEIN HARVEST, COMPLETION ANGIOGRAM; Surgeon: Mohsen Sarabia MD; Location: [facility]; Service: Cardiovascular CARDIAC CATHETERIZATION Left 09/05/2018 Procedure: Angio Lower Extremity; Surgeon: Ben Hahn MD; Location: [facility]; Service: Cardiovascular CARDIAC SURGERY 2017 triple bypass [...] Contact guard assist (when in stand-scoot posture.) Glue Cook - Standing Dynamic: BUE (wheelchair; and NWB on LLE.) Loss of Balance- Standing Dynamic: intermittent Bed Mobility Rolling: Modified independent Supine to Sit: Modified independent Sit to Supine: Modified independent Glue Cook: bedrails, bed positioning mechanics Transfers Squat Pivot Transfers: Stand by assist, Contact guard assist Glue Cook: wheelchair Additional Transfer Trial 2: Yes Squat Pivot Transfers Trial 2: Stand by assist, Contact guard assist Glue Cook Trial 2: wheeled walker Gait/Locomotion Wheelchair Mobility: [...] baseline. Prior Level of Function Level of [place] - Transfers/Ambulation/Mobility: Independent with functional transfers, Independent with household ambulation Level of [place] - ADLs: Independent Subjective Impression - Prior [...] MIDFOOT AMPUTATION; Surgeon: Flynn Mann DPM; Location: [facility]; Service: Podiatry ANKLE SURGERY Left BYPASS PERONEAL FEMORAL Right 09/07/2018 Procedure: BYPASS PERONEAL FEMORAL, RIGHT SAPHENOUS VEIN HARVEST, COMPLETION ANGIOGRAM; Surgeon: Mohsen Sarabia MD; Location: [facility]; Service: Cardiovascular CARDIAC CATHETERIZATION Left 09/05/2018 Procedure: Angio Lower Extremity; Surgeon: Ben Hahn MD; Location: [facility]; Service: Cardiovascular CARDIAC SURGERY 2017 triple bypass [...] as an outpatient and follow up with [facility] closer to home. Possible biopsy iffindings persist. [...] Ngoc Banks MD Preliminary Medicine PGY1 Pager: [phone] Reason for Consultation: Suspicious Pulm nodule with [...] dust over the years while working in [employer]. Denies recent weight loss. Notes a few [...] MIDFOOT AMPUTATION; Surgeon: Flynn Mann DPM; Location: [facility]; Service: Podiatry ANKLE SURGERY Left BYPASS PERONEAL FEMORAL Right 09/07/2018 Procedure: BYPASS PERONEAL FEMORAL, RIGHT SAPHENOUS VEIN HARVEST, COMPLETION ANGIOGRAM; Surgeon: Mohsen Sarabia MD; Location: [facility]; Service: Cardiovascular CARDIAC CATHETERIZATION Left 09/05/2018 Procedure: Angio Lower Extremity; Surgeon: Ben Hahn MD; Location: [facility]; Service: Cardiovascular CARDIAC SURGERY 2017 triple bypass [...] data reviewed No results for input(s): PHART, QWE6LCF, PO2ART, F8XZLADB, RESPRATE, TIDALVOL, PEEP, [id number] in the last 72 hours. Recent Labs [...] and recommend this to be done at [facility] with either Drs. Carson Gallagher or [...] Medicine 5:26 PM 01/19/22 documented in this [id number] Consult note* Jay Tarango, PT - 01/20/2022 [...] Contact guard assist (when in stand-scoot posture.) Glue Cook - Standing Dynamic: BUE (wheelchair; and NWB on LLE.) Loss of Balance- Standing Dynamic: intermittent Bed Mobility Rolling: Modified independent Supine to Sit: Modified independent Sit to Supine: Modified independent Glue Cook: bedrails, bed positioning mechanics Transfers Squat Pivot Transfers: Stand by assist, Contact guard assist Glue Cook: wheelchair Additional Transfer Trial 2: Yes Squat Pivot Transfers Trial 2: Stand by assist, Contact guard assist Glue Cook Trial 2: wheeled walker Gait/Locomotion Wheelchair Mobility: [...] baseline. Prior Level of Function Level of [place] - Transfers/Ambulation/Mobility: Independent with functional transfers, Independent with household ambulation Level of [place] - ADLs: Independent Subjective Impression - Prior [...] MIDFOOT AMPUTATION; Surgeon: Flynn Mann DPM; Location: [facility]; Service: Podiatry ANKLE SURGERY Left BYPASS PERONEAL FEMORAL Right 09/07/2018 Procedure: BYPASS PERONEAL FEMORAL, RIGHT SAPHENOUS VEIN HARVEST, COMPLETION ANGIOGRAM; Surgeon: Mohsen Sarabia MD; Location: [facility]; Service: Cardiovascular CARDIAC CATHETERIZATION Left 09/05/2018 Procedure: Angio Lower Extremity; Surgeon: Ben Hahn MD; Location: [facility]; Service: Cardiovascular CARDIAC SURGERY 2017 triple bypass EGD N/A 10/10/2018 Procedure: ESOPHAGOGASTRODUODENOSCOPY; Surgeon: Ben Jensen MD; Location: [facility]; Service: Gastroenterology EYE SURGERY Right 2015 FOOT [...] hospital or completion of Physical Therapy Plan. [id number] Note* Sign Off Note - David Christy MD - 01/20/2022 12:38 PM EDT Pulmonary Medicine Sign-Off Medications: Bronchodilators: Recommend initiating Spiriva with PRN Albuterol on dsicharge Home Respiratory Equipment: N/A Follow-up: Imaging: Follow up PET/CT Scan KAJAL in outpatient setting. Please set up at [facility] with Dr Carson Cm or Angela Guerra with referral Pulmonary Function Testing: For diagnosis of COPD Patient with suspicious lung nodule and severe emphysema changes. Also uses Afrin, this should be limited to 2-3 days use at most at a time. Please call with questions David Christy M.D. Internal Medicine PGY-3 Pager: [phone] [facility] Work Phone: 1(400) 765-651505-26-2022 Miscellaneous Notes* Sign Off Note - David Christy MD - 01/20/2022 12:38 PM EDT Pulmonary Medicine Sign-Off Medications: Bronchodilators: Recommend initiating Spiriva with PRN Albuterol on dsicharge Home Respiratory Equipment: N/A Follow-up: Imaging: Follow up PET/CT Scan KAJAL in outpatient setting. Please set up at [facility] with Dr Carson Cm or Angela Guerra with referral Pulmonary Function Testing: For diagnosis of COPD Patient with suspicious lung nodule and severe emphysema changes. Also uses Afrin, this should be limited to 2-3 days use at most at a time. Please call with questions David Christy M.D. Internal Medicine PGY-3 Pager: [phone] * ED Procedure Note - Mikey Mcguire [...] and Critical Limb consultation. documented in this [id number] Consult note* Carson Banks MD - 01/19/2022 [...] calcified granulomas. -Solitary lung nodule malignancy risk (Leola) score: 17.6% -Recommend PET as an outpatient and follow up with [facility] closer to home. Possible biopsy iffindings persist. [...] Ngoc Banks MD Preliminary Medicine PGY1 Pager: [phone] Reason for Consultation: Suspicious Pulm nodule with [...] dust over the years while working in [employer]. Denies recent weight loss. Notes a few [...] MIDFOOT AMPUTATION; Surgeon: Flynn Mann DPM; Location: [facility]; Service: Podiatry ANKLE SURGERY Left BYPASS PERONEAL FEMORAL Right 09/07/2018 Procedure: BYPASS PERONEAL FEMORAL, RIGHT SAPHENOUS VEIN HARVEST, COMPLETION ANGIOGRAM; Surgeon: Mohsen Sarabia MD; Location: [facility]; Service: Cardiovascular CARDIAC CATHETERIZATION Left 09/05/2018 Procedure: Angio Lower Extremity; Surgeon: Ben Hahn MD; Location: [facility]; Service: Cardiovascular CARDIAC SURGERY 2017 triple bypass [...] sodium chloride (PF) 5 mL Intravenous Q8H [facility] [START ON 01/20/2022] vancomycin 1,750 mg Intravenous Q36H Data: Laboratory Data: [x] Pertinent lab data reviewed Radiology: [x] Images personally reviewed Microbiology: [x] Pertinent microbiology data reviewed No results for input(s): PHART, TYN7NLH, PO2ART, S4LMDLZO, RESPRATE, TIDALVOL, PEEP, [id number] in the last 72 hours. Recent Labs [...] and recommend this to be done at [facility] with either Drs. Carson Gallagher or [...] and Critical Care Medicine 5:26 PM 01/19/22 [id number] Emergency department Note* Violetta Stuart RN - 01/19/2022 2:35 PM EDT Patient provided with warm blanket and coffee. Denies any further needs at this time, visitor at bedside. [id number] Emergency department Note* Violetta Stuart RN - [...] Med one to write orders for admission [phone]...checkout complete * Amy Ojeda PA-C - 01/18/2022 11:14 PM EDT Images from the original note were not included. ED PROVIDER NOTE [facility] EMERGENCY DEPARTMENT NAME: Tristin Powell AGE: 82 y.o. : 1940 VISIT DATE: 01/18/2022 CSN: [id number] PCP: Flash Lovelace MD Chief Complaint Patient [...] MIDFOOT AMPUTATION; Surgeon: Flynn Mann DPM; Location: [facility]; Service: Podiatry ANKLE SURGERY Left BYPASS PERONEAL FEMORAL Right 09/07/2018 Procedure: BYPASS PERONEAL FEMORAL, RIGHT SAPHENOUS VEIN HARVEST, COMPLETION ANGIOGRAM; Surgeon: Mohsen Sarabia MD; Location: [facility]; Service: Cardiovascular CARDIAC CATHETERIZATION Left 09/05/2018 Procedure: Angio Lower Extremity; Surgeon: Ben Hahn MD; Location: [facility]; Service: Cardiovascular CARDIAC SURGERY 2017 triple bypass EGD N/A 10/10/2018 Procedure: ESOPHAGOGASTRODUODENOSCOPY; Surgeon: Ben Jensen MD; Location: [facility]; Service: Gastroenterology EYE SURGERY Right 2015 FOOT [...] states he's nauseous, chills documented in this [id number] Emergency department Note* Violetta Stuart RN - 01/19/2022 1:15 PM EDT Patient provided with lunch tray. [id number] Emergency department Note* Maude Vallejo RN - 01/19/2022 10:13 AM EDT patient visited at this time. comfort needs addressed. updated on plan of care. MEAL TRAY DELIVERED AT THIS TIME [id number] History and physical note* Rodri Back DO - 01/18/2022 11:54 PM EDT Images from the original note were not included. [facility] History and Physical Note 01/19/22 Tristin Powell 1940 [id number] Assessment/Plan: Tristin Powell is a 82 y.o. male with a history of HTN, CAD, PVD who presented to [facility] 01/18/2022 with progressive left ankle pain, redness, swelling not improved with oral antibiotics. Admit XR non-acute, temp 100.7, CRP 63.5, WBC 6.76, ESR 18. LLE Cellulitis: Per chart, hx MRSA in 2019. Presented progressive severe left ankle pain, edema, warmth, tenderness x 3 days SENIOR BIOINFORMATICS SPECIALIST not improved with keflex/bactrim. Admit temp [...] of HTN, CAD, PVD who presented to [facility] 01/18/2022 with progressive left ankle pain, [...] MIDFOOT AMPUTATION; Surgeon: Flynn Mann DPM; Location: [facility]; Service: Podiatry ANKLE SURGERY Left BYPASS PERONEAL FEMORAL Right 09/07/2018 Procedure: BYPASS PERONEAL FEMORAL, RIGHT SAPHENOUS VEIN HARVEST, COMPLETION ANGIOGRAM; Surgeon: Mohsen Sarabia MD; Location: [facility]; Service: Cardiovascular CARDIAC CATHETERIZATION Left 09/05/2018 Procedure: Angio Lower Extremity; Surgeon: Ben Hahn MD; Location: [facility]; Service: Cardiovascular CARDIAC SURGERY 2017 triple bypass [...] mg/dL -- 107* CALCIUM mg/dL -- 9.2 [id number] History and physical note* Rodri Back DO - 01/18/2022 11:54 PM EDT Images from the original note were not included. [facility] and Physical Note 01/19/22 Tristin Powell 1940 [id number] Assessment/Plan: Tristin Powell is a 82 y.o. male with a history of HTN, CAD, PVD who presented to [facility] 01/18/2022 with progressive left ankle pain, redness, swelling not improved with oral antibiotics. Admit XR non-acute, temp 100.7, CRP 63.5, WBC 6.76, ESR 18. LLE Cellulitis: Per chart, hx MRSA in 2018. Presented progressive severe left ankle pain, edema, warmth, tenderness x 3 days SENIOR BIOINFORMATICS SPECIALIST not improved with keflex/bactrim. Admit temp [...] of HTN, CAD, PVD who presented to [facility] 01/18/2022 with progressive left ankle pain, [...] MIDFOOT AMPUTATION; Surgeon: Flynn Mann DPM; Location: [facility]; Service: Podiatry ANKLE SURGERY Left BYPASS PERONEAL FEMORAL Right 09/07/2018 Procedure: BYPASS PERONEAL FEMORAL, RIGHT SAPHENOUS VEIN HARVEST, COMPLETION ANGIOGRAM; Surgeon: Mohsen Sarabia MD; Location: [facility]; Service: Cardiovascular CARDIAC CATHETERIZATION Left 09/05/2018 Procedure: Angio Lower Extremity; Surgeon: Ben Hahn MD; Location: [facility]; Service: Cardiovascular CARDIAC SURGERY 2017 triple bypass [...] CALCIUM mg/dL -- 9.2 documented in this [id number] Emergency department Note* Richie Vallecillo - 01/18/2022 11:29 PM EDT Med one to write orders for admission [phone]...checkout complete [id number] Note* ED Procedure Note - Mikey Mcguire MD - 01/18/2022 11:27 PM EDTAssociated Order(s): ECG 12 Lead ECG 12 Lead Date/Time: 01/18/2022 11:27 PM Performed by: Mikey Mcguire MD Authorized by: Mikey Mcgiure MD Interpreted by ED attending physician Rhythm: sinus rhythm BPM: 76 Ectopy: PVCs Conduction: conduction normal ST Segments: ST segments normal T Waves: T waves normal Clinical impression: non-specific ECG [facility] Work Phone: [phone] Physician Emergency department Note* Amy Ojeda PA-C - 01/18/2022 11:14 PM EDT Images from the original note were not included. ED PROVIDER NOTE [facility] EMERGENCY DEPARTMENT NAME: Tristin Powell AGE: 82 y.o. : 1940 VISIT DATE: 01/18/2022 [facility]: [id number] PCP: Flash Lovelace MD Chief Complaint Patient [...] MIDFOOT AMPUTATION; Surgeon: Flynn Mann DPM; Location: [facility] OR; Service: Podiatry ANKLE SURGERY Left BYPASS PERONEAL FEMORAL Right 09/07/2018 Procedure: BYPASS PERONEAL FEMORAL, RIGHT SAPHENOUS VEIN HARVEST, COMPLETION ANGIOGRAM; Surgeon: Mohsen Sarabia MD; Location: [facility]; Service: Cardiovascular CARDIAC CATHETERIZATION Left 09/05/2018 Procedure: Angio Lower Extremity; Surgeon: Ben Hahn MD; Location: [facility]; Service: Cardiovascular CARDIAC SURGERY 2017 triple bypass [...] Historical Med Amy Ojeda PA-C 01/19/22 0028 [facility] Work Phone: [phone] Note* ED Attestation Note - Mikey Mcguire [...] for IV antibiotics and Critical Limb consultation. [id number] Emergency department Triage note* Gregory Alvarado LPN - 01/18/2022 8:37 PM EDT Pt arrives to the ED with c/o redness and swelling to left amputated foot. Redness and swelling noted a couple days ago. Pt states he's nauseous, chills [id number] History of Present illness Narrative* Katie Anna RN - 01/18/2022 4:21 PM EDT Received progress note and images of left lower extremity dated 01-18-[address] Flash Webb. See scanned document in Media. documented in this [id number] History of Present illness Narrative* Светлана Briones [...] 01/12/2022 9:08 AM Patient: Tristin Powell MR#: [id number] : 1940 Age: 82 y.o. Referring Physician: Self, Self Insurance: Payor: MEDICARE [employer] [place] [employer] PPO / Plan: MEDICARE [employer] HMO PPO [...] AM Patient: Tristin Hortensia Powell Sr. MR#: [id number] : 1940 Age: 82 y.o. Referring Physician: Self, Self Insurance: Payor: MEDICARE [employer] [place] [employer] PPO / Plan: MEDICARE [employer] [place] [employer] PPO / Product Type: *No Product type* [...] has No Known Allergies. [facility] History of Present illness Narrative* Ileana Kang [...] 10/08/2018 Bladder problem 10/08/2018 Bleeding disorder ([facility]) 10/08/2018 Cataract 10/08/2018 CHF (congestive heart failure) ([facility]) 10/08/2018 Cholelithiasis 10/08/2018 Chronic kidney disease (CKD) 10/08/2018 Chronic pain disorder 10/08/2018 Clostridium difficile infection 10/08/2018 Complication of anesthesia 10/08/2018 COPD (chronic obstructive pulmonary disease) ([facility]) 10/08/2018 Crohn's disease ([facility]) 10/08/2018 Deep vein thrombosis ([facility]) 10/08/2018 Dermatitis 10/08/2018 Diabetes mellitus type I ([facility]) 10/08/2018 Diabetes mellitus, type 2 ([facility]) 10/08/2018 Diverticulosis 10/08/2018 Emphysema of lung ([facility]) 10/08/2018 Fibromyalgia, primary 10/08/2018 Hard to intubate 10/08/2018 Headache 10/08/2018 HIV disease ([facility]) 10/08/2018 Infectious viral hepatitis 10/08/2018 MRSA (methicillin resistant Staphylococcus aureus) 10/08/2018 Neck pain 10/08/2018 Nephrolithiasis 10/08/2018 Osteoporosis 10/08/2018 Overactive bladder 10/08/2018 PAD (peripheral artery disease) ([facility]) 10/08/2018 Parkinson's disease ([facility]) 10/08/2018 Peripheral neuropathy 10/08/2018 Postoperative retention of urine 10/08/2018 Problem with Qureshi catheter ([facility]) 10/08/2018 Rheumatoid arthritis ([facility]) 10/08/2018 Seizures ([facility]) 10/08/2018 Sleep apnea, obstructive 10/08/2018 Stroke ([facility]) 10/08/2018 Thrombophlebitis 10/08/2018 TIA (transient ischemic attack) [...] Ileana Kang DO 12/28/2021 documented in this [id number] History of Present illness Narrative* Hill Marquez LPN - 11/24/2021 9:50 AM EDT Ortho Nurse - Established Patient Intake Room#: 2 4 month Right SHANNON D/A, about 10 days ago for no reason he started having radiating pain upto an 8, no pain when sitting, was doing fine before this Date: 11/24/2021 9:46 AM Patient: Tristin Powell Sr. MR#: [id number] : 1940 Age: 81 y.o. Referring Physician: Self, Self Insurance: Payor: MEDICARE [employer] [employer] PPO / Plan: MEDICARE [employer] HMO PPO [...] Laterality: N/A; Surgeon: Isaias Vogt MD; [facility]EP LAB PERIPHERAL STENT PLACEMENT N/A 08/09/2018 Laterality: N/A; Surgeon: Isaias Vogt MD; [facility] CARD[facility]/EP LAB ATHERECTOMY PERIPHERAL N/A 08/09/2018 Laterality: N/A; Surgeon: Isaias Vogt MD; [facility] CARD[facility]ATH/EP LAB CORONARY STENT [...] 9:46 AM Patient: Tristin Powell Sr. MR#: [id number] : 1940 Age: 81 y.o. Referring Physician: [...] has No Known Allergies. documented in this encounter[facility] Center[facility] + Plan note No data available for this section [facility] evaluation + Plan note Future Appointments Appointment Date:12/26/2023 01:00:00 PM Scheduled Provider:BRENNA MOSQUERA PA-C Location:[facility] Appointment Type:URO Office Visit Diagnostic Tests Pending * PSA Total 12/20/22 [facility] evaluation note* Diagnosis Bilateral carotid artery stenosis- Primary Occlusion and stenosis of carotid artery without mention of cerebral infarction PAD (peripheral artery disease) (HCC) Unspecified peripheral vascular disease documented in this encounter [facility]* Diagnosis PAD (peripheral artery disease) (HCC)- Primary Unspecified peripheral vascular disease documented in this encounter [facility] Diagnosis Pain in prosthetic joint, subsequent encounter- Primary [facility] Diagnosis Actinic keratosis- Primary SK (seborrheic keratosis) Other seborrheic keratosis Inflamed seborrheic keratosis Skin tenderness Disturbance of skin sensation Xerosis cutis Other specified disease of sebaceous glands [facility] Diagnosis Hx of total hip arthroplasty, right- Primary [facility] Diagnosis Cellulitis- Primary Cellulitis and abscess of unspecified site Left leg cellulitis 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) Elevated C-reactive protein (CRP) Pulmonary nodule Other diseases of lung, not elsewhere classified Essential hypertension Unspecified essential hypertension PAD (peripheral artery disease) (HCC) Unspecified peripheral vascular disease [facility] Diagnosis Chronic obstructive pulmonary disease, unspecified COPD type (HCC)- Primary Pulmonary nodule Other diseases of lung, not elsewhere classified documented in this encounter [facility] Diagnosis PAD (peripheral artery disease) (HCC)- Primary Unspecified peripheral vascular disease Pain of right lower extremity Hypertension, unspecified type [facility] Work Phone: Evaluation note* Diagnosis Bilateral carotid artery stenosis- Primary Occlusion and stenosis of carotid artery without mention of cerebral infarction [facility]* Diagnosis Hx of total hip arthroplasty, right- Primary [facility]* Diagnosis Chronic obstructive pulmonary disease, unspecified [...] peripheral vascular disease documented in this encounter [facility] Diagnosis PAD (peripheral artery disease) (HCC)- Primary Unspecified peripheral vascular disease documented in this encounter [facility] Diagnosis Critical lower limb ischemia (HCC)- Primary Unspecified circulatory system disorder [facility] Diagnosis Hx of total hip arthroplasty, [...] unspecified type- Primary [facility]* Diagnosis Phantom limb pain (CMS/HCC)- [...] spondylosis without myelopathy [facility] Diagnosis Ischemic foot- Primary PAD (peripheral artery disease) ([facility]) Unspecified peripheral vascular disease Critical lower limb ischemia (HCC) Unspecified circulatory system disorder Critical lower limb ischemia (HCC) Unspecified circulatory system disorder Coronary artery disease involving coronary bypass graft of [place] heart without angina pectoris Hypercholesteremia Pure hypercholesterolemia [...] initial encounter PAD (peripheral artery disease) ([facility]) Unspecified peripheral vascular disease PVD (peripheral vascular disease) ([facility])- Primary Unspecified peripheral vascular disease documented in this encounter [facility] Diagnosis Phantom limb pain (CMS/HCC)- [...] spondylosis without myelopathy documented in this encounter [facility]* Diagnosis Community acquired pneumonia of left lung, unspecified part of lung- Primary COPD exacerbation (HCC) Obstructive chronic bronchitis with exacerbation documented in this encounter [employer] Phone: evaluation note* Diagnosis Community acquired pneumonia of left lung, unspecified part of lung- Primary COPD exacerbation (HCC) Obstructive chronic bronchitis with exacerbation documented in this encounter [employer] Phone: evaluation note* Diagnosis Phantom limb pain [...] Phantom limb (syndrome) documented in this encounter [facility]* Diagnosis Medicare annual wellness visit, subsequent- Primary ACP (advance care planning) Other specified counseling Primary insomnia Persistent disorder of initiating or maintaining sleep Neuropathy Mononeuritis of unspecified site Other chronic pain Paresthesia of skin Phantom limb pain ([facility]) Phantom limb (syndrome) Polymyalgia rheumatica ([facility]) Polymyalgia rheumatica Mild persistent asthmatic bronchitis without complication ([facility]) Chronic bronchitis, unspecified chronic bronchitis type ([facility]) Dyspnea on exertion Other dyspnea and respiratory abnormality Orthopnea Snoring Other dyspnea and respiratory abnormality Solitary pulmonary nodule Abdominal aortic aneurysm (AAA) without rupture, unspecified part ([facility]/HCC) Aortic valve insufficiency, etiology of cardiac valve disease unspecified Atherosclerosis of [place] coronary artery of [place] heart without angina pectoris ([facility]) Benign essential hypertension ([facility]) Essential hypertension, benign Stenosis of right carotid artery Occlusion and stenosis of carotid artery without mention of cerebral infarction Chronic heart failure with preserved ejection fraction ([facility]) Chronic ischemic heart disease ([facility]) Unspecified chronic ischemic heart disease Mitral valve insufficiency, unspecified etiology Paroxysmal atrial fibrillation ([facility]/HCC) Atrial fibrillation Preinfarction syndrome ([facility]) Intermediate coronary syndrome PVD (peripheral vascular disease) with claudication ([facility]) Unspecified peripheral vascular disease Thoracic aortic aneurysm without rupture, unspecified part ([facility]) Heartburn 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 (CMS/[facility]) Impotence of organic origin Malignant neoplasm of prostate (CMS/[facility]) Malignant neoplasm of prostate Stage 3a chronic kidney disease (HCC) ([facility]) Arthritis Unspecified arthropathy, site unspecified Status post total replacement of right hip Claudication of right lower extremity ([facility]) Lumbosacral spondylosis without myelopathy Posterior tibial tendinitis [...] 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CMS/[facility]) Atherosclerosis of [place] arteries of extremities with rest pain, unspecified extremity (CMS/[facility]) Pulmonary hypertension, unspecified (CMS/HCC) documented in this encounter [facility]* Diagnosis Chest pain in adult- Primary Lumbosacral spondylosis 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) Seasonal allergic rhinitis due to pollen documented in this encounter [facility] HealthcareEvaluation note* Diagnosis Phantom limb pain [...] spondylosis without myelopathy documented in this encounter [facility] HealthcareEvaluation note* Diagnosis Phantom limb pain [...] spondylosis without myelopathy documented in this encounter [facility] HealthcareEvaluation note* Diagnosis Phantom limb pain [...] Chronic diastolic (congestive) heart failure Atherosclerosis of [place] arteries of extremities with rest pain, unspecified [...] Chronic diastolic (congestive) heart failure Atherosclerosis of [place] arteries of extremities with rest pain, unspecified [...] spondylosis without myelopathy documented in this encounter [facility]Evaluation note* Diagnosis Phantom limb pain (CMS/HCC)- [...] Chronic diastolic (congestive) heart failure Atherosclerosis of [place] arteries of extremities with rest pain, unspecified [...] spondylosis without myelopathy documented in this encounter [facility] HealthcareEvaluation note* Diagnosis Phantom limb pain [...] Chronic diastolic (congestive) heart failure Atherosclerosis of [place] arteries of extremities with rest pain, unspecified [...] diastolic (congestive) heart failure (HCC) Atherosclerosis of [place] arteries of extremities with rest pain, unspecified [...] spondylosis without myelopathy [facility] Diagnosis Ischemic foot- Primary PAD (peripheral artery disease) (HCC) Unspecified peripheral vascular disease Critical lower limb ischemia (HCC) Unspecified circulatory system disorder Critical lower limb ischemia (HCC) Unspecified circulatory system disorder Coronary artery disease involving coronary bypass graft of [place] heart without angina pectoris Hypercholesteremia Pure hypercholesterolemia [...] peripheral vascular disease [facility]* Diagnosis Ischemic foot- Primary PAD (peripheral artery disease) (HCC) Unspecified peripheral vascular disease Critical lower limb ischemia (HCC) Unspecified circulatory system disorder Critical lower limb ischemia (HCC) Unspecified circulatory system disorder Coronary artery disease involving coronary bypass graft of [place] heart without angina pectoris Hypercholesteremia Pure hypercholesterolemia [...] initial encounter PAD (peripheral artery disease) ([facility])- Primary Unspecified peripheral vascular disease Claudication Unspecified peripheral vascular disease Right leg pain Pain in soft tissues of limb Peripheral artery disease PAD (peripheral artery disease) ([facility]) Unspecified peripheral vascular disease [...] artery disease involving coronary bypass graft of [place] heart without angina pectoris Critical lower limb ischemia (HCC) Unspecified circulatory system disorder Critical lower limb ischemia (HCC) Unspecified circulatory system disorder Coronary artery disease involving coronary bypass graft of [place] heart without angina pectoris Carotid stenosis, asymptomatic, bilateral documented in this encounter [facility]* Diagnosis Phantom limb pain (HCC)- Primary [...] 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[facility]) Lumbosacral spondylosis without myelopathy Chronic obstructive pulmonary disease, unspecified COPD type ([facility]) Acute cystitis without hematuria- Primary Seasonal allergic rhinitis due to pollen Other thrombophilia ([facility]CC) Malignant neoplasm of prostate (HCC) Malignant [...] diastolic (congestive) heart failure (HCC) Atherosclerosis of [place] arteries of extremities with rest pain, unspecified [...] prostate Urinary hesitancy documented in this encounter [facility] note* Diagnosis Ischemic foot- Primary PAD [...] artery disease involving coronary bypass graft of [place] heart without angina pectoris Critical lower limb ischemia (HCC) Unspecified circulatory system disorder Critical lower limb ischemia (HCC) Unspecified circulatory system disorder Coronary artery disease involving coronary bypass graft of [place] heart without angina pectoris Carotid stenosis, asymptomatic, bilateral Critical lower limb ischemia (HCC)- Primary Unspecified circulatory system disorder [facility]* Diagnosis Phantom limb pain (HCC)- Primary [...] diastolic (congestive) heart failure (HCC) Atherosclerosis of [place] arteries of extremities with rest pain, unspecified [...] diastolic (congestive) heart failure (HCC) Atherosclerosis of [place] arteries of extremities with rest pain, unspecified [...] unspecified type (HCC) documented in this encounter [facility]Evaluation note* Diagnosis Phantom limb pain [...] diastolic (congestive) heart failure (HCC) Atherosclerosis of [place] arteries of extremities with rest pain, unspecified [...] artery disease involving coronary bypass graft of [place] heart without angina pectoris Critical lower limb ischemia (HCC) Unspecified circulatory system disorder Critical lower limb ischemia (HCC) Unspecified circulatory system disorder Coronary artery disease involving coronary bypass graft of [place] heart without angina pectoris Carotid stenosis, asymptomatic, bilateral Critical lower limb ischemia (HCC)- Primary Unspecified circulatory system disorder [facility]* Diagnosis Phantom limb pain (HCC)- Primary [...] diastolic (congestive) heart failure (HCC) Atherosclerosis of [place] arteries of extremities with rest pain, unspecified [...] unspecified location- Primary documented in this encounter [facility] HealthcareEvaluation note* Diagnosis Phantom limb pain [...] diastolic (congestive) heart failure (HCC) Atherosclerosis of [place] arteries of extremities with rest pain, unspecified [...] Essential hypertension, benign documented in this encounter [facility] HealthcareEvaluation note* Diagnosis Phantom limb pain [...] diastolic (congestive) heart failure (HCC) Atherosclerosis of [place] arteries of extremities with rest pain, unspecified [...] Abnormal chest sounds [facility] Diagnosis Claudication Peripheral vascular disease, unspecified [...] acute or chronic [facility] Claudication Peripheral vascular disease, unspecified [...] acute or chronic [facility] Diagnosis Phantom limb pain (HCC)- Primary [...] diastolic (congestive) heart failure (HCC) Atherosclerosis of [place] arteries of extremities with rest pain, unspecified [...] bronchitis with exacerbation documented in this encounter [facility]Evaluation note* Diagnosis Phantom limb pain [...] diastolic (congestive) heart failure (HCC) Atherosclerosis of [place] arteries of extremities with rest pain, unspecified [...] of lung- Primary documented in this encounter [facility]Evaluation note* Diagnosis Phantom limb pain [...] diastolic (congestive) heart failure (HCC) Atherosclerosis of [place] arteries of extremities with rest pain, unspecified [...] pneumonia (HCC)- Primary documented in this encounter [facility] HealthcareEvaluation note* Diagnosis Phantom limb pain (HCC)- [...] diastolic (congestive) heart failure (HCC) Atherosclerosis of [place] arteries of extremities with rest pain, unspecified [...] peripheral vascular disease [facility] Diagnosis Ischemic foot- Primary PAD (peripheral [...] artery disease PAD (peripheral artery disease) ([facility]) Unspecified peripheral vascular disease [...] artery disease involving coronary bypass graft of [place] heart without angina pectoris Critical lower limb ischemia (HCC) Unspecified circulatory system disorder Critical lower limb ischemia (HCC) Unspecified circulatory system disorder Coronary artery disease involving coronary bypass graft of [place] heart without angina pectoris Carotid stenosis, asymptomatic, bilateral PVD (peripheral vascular disease)- Primary Unspecified peripheral vascular disease [facility] Diagnosis Phantom limb pain (HCC)- [...] diastolic (congestive) heart failure (HCC) Atherosclerosis of [place] arteries of extremities with rest pain, unspecified [...] left leg and was initially treated in [place]. When he was offered left above-knee amputation he got a second opinion in [place] and had a bypass on his left [...] hip replacementSurgical HistoryLEFT METARSAL AMPUTATIONHospitalization HistorySee Above [facility] Other Hospital Discharge instructions No data available for this section [facility] Hospital Discharge instructions* Attachments The following attachments [...] 24 hours. CALL [name at #] OR [facility] AT [phone]: -If excessive bleeding should occur from the [...] Metformin, PrandiMet, Riomet.] FOLLOW UP/OTHER INSTRUCTIONS [ ][facility] Work Phone: Hospital Discharge instructions Additional Instructions Full code Change dressing daily: *right great toe- allow vashe moistened gauze soak on wound bed for 5 min., wipe free loose debris, rinse with saline, apply Santyl to wound bed, top with 2x2s and secure with conforming [facility] Work Phone: Progress note No data available for this section [facility] reason for referral (narrative)No reason for referral information [facility] Work Phone: Reason for visit Narrative* Auth/CertSpecialty Diagnoses / ProceduresReferred By ContactReferred To Contact Diagnoses Bronchitis Hemopytsis Vivienne Gerard MD [address] [place] [address] Phone: tel: fax: [facility] [address] [place] [address] Referral IDStatusReasonStart DateExpiration DateVisits RequestedVisits [id number] [facility] Summary Purpose Family History No Family History [...] and Living Will03/13/2019 10:08 AMLW onlyPower of Molder Machine 10/13/2018 9:03 PMRECEIVED 10/13/2018Code StatusDate ActivatedDate Inactivated CommentsFull Code07/15/2021 2:40 PMFull Code09/03/2018 11:29 AM07/15/2021 2:40 PM Full Code09/01/2011 7:48 AM09/04/2011 4:13 PMTypeDate RecordedPatient Plastic Installer ExplanationPower of Attorney10/13/2018 9:03 PMRECEIVED 10/13/2018TypeDate RecordedPatient [...] InactivatedComments03/14/2025 5:44 PM 03/21/2025 8:44 PMTypeDate RecordedPatient RepresentativeExplanationHealthBoston [facility]10/08/2018Date ActivatedDate InactivatedComments05/09/2025 4:40 AMDate ActivatedDate TrmjpuimeuxWkzmkfby14/18/2021 2:40 PM05/09/2025 4:40 AMDate ActivatedDate InactivatedComments09/03/2018 11:29 AM07/15/2021 2:40 PMDate ActivatedDate InactivatedComments09/01/2011 7:48 AM09/04/2011 4:13 PMName RelationshipHealthcare Agent RelationshipCommunicationJudy Ann Bryan Health Care Agent* NameRelationshipHealthcare Agent RelationshipCommunicationJudy Ann Bryan Health Care Agent* Reason for Referral StatusReasonSpecialtyDiagnoses / ProceduresReferred By ContactReferred To [facility] Diagnoses Ischemic foot Critical lower limb ischemia Rojelio Woody MD [address] [facility] [address] [place] [address] StatusReasonSpecialtyDiagnoses / ProceduresReferred By ContactReferred To ContactPending ReviewCardiology Diagnoses 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 (HCC) S/P bypass graft of extremity Procedures US Doppler ankle/brachial index Segmental doppler lower extremity arterial Mohsen Sarabia MD [address] [facility] [address] [place] [address] StatusReasonSpecialtyDiagnoses / ProceduresReferred By ContactReferred To ContactPending ReviewCardiology Diagnoses Bilateral carotid artery stenosis Procedures Carotid Duplex Mohsen Sarabia MD [facility] [address] [place] [address] StatusReasonSpecialtyDiagnoses / ProceduresReferred By ContactReferred To ContactPending ReviewCardiology Diagnoses Atherosclerosis of [place] arteries of the extremities with ulceration (HCC) S/P bypass graft of extremity Procedures Ultrasound ankle / brachial indices extremity complete Mohsen Sarabia MD [address] [facility] [address] [place] [id number] StatusReasonSpecialtyDiagnoses / ProceduresReferred By ContactReferred To ContactClosedRadiology Diagnoses S/P bypass graft of extremity PAD (peripheral artery disease) (HCC) Atherosclerosis of [place]amp[place] arteries of the extremities with ulceration (HCC) Procedures CT Angiogram Abdominal Aorta With Lower Extremity Mohsen Sarabia MD [address] [place] [address] [address] [place] [address] StatusReasonSpecialtyDiagnoses / ProceduresReferred By ContactReferred To ContactClosedCardiology Diagnoses Bilateral carotid artery stenosis Procedures Carotid Duplex Mohsen Sarabia MD [address] [place] [address] [address] [place] [address] StatusReasonSpecialtyDiagnoses / ProceduresReferred By ContactReferred To ContactClosedCardiology Diagnoses Atherosclerosis of [place]amp[place] arteries of the extremities with ulceration (HCC) Procedures Ultrasound ankle / brachial indices extremity complete Mohsen Sarabia MD [address] [place] [address] StatusReasonSpecialtyDiagnoses / ProceduresReferred By ContactReferred To ContactPending ReviewCardiology Diagnoses Atherosclerosis of [place] artery of left lower extremity with rest pain (HCC) S/P bypass graft of extremity Procedures Ultrasound duplex arterial leg left Mohsen Sarabia MD [address] [place] [address] StatusReasonSpecialtyDiagnoses / ProceduresReferred By ContactReferred To ContactAuthorizedCardiology Diagnoses Bilateral carotid artery stenosis Procedures Carotid Duplex Mohsen Sarabia MD [address] [place] [address] StatusReasonSpecialtyDiagnoses / ProceduresReferred By ContactReferred To ContactAuthorizedCardiology Diagnoses PAD (peripheral artery disease) (HCC) Procedures Ultrasound ankle / brachial indices extremity complete Mohsen Sarabia MD [address] [place] [address] [address] [place] [address] StatusReasonSpecialtyDiagnoses / ProceduresReferred By ContactReferred To ContactAuthorizedCardiology Diagnoses PAD (peripheral artery disease) ([facility]) Procedures Ultrasound duplex arterial leg left Mohsen Sarabia MD [address] [place] [address] SpecialtyDiagnoses / ProceduresReferred By ContactReferred To ContactPhysical Therapy Diagnoses Pain in prosthetic joint, subsequent encounter Dashawn Silvestre MD [address] [place], [place] [phone] [facility] [place] [address] Referral IDStatusReasonStart DateExpiration DateVisits RequestedVisits [id number] Request/[id number] / Procedures Referred By ContactReferred To Contact Diagnoses Pain in prosthetic joint, subsequent encounter Procedures XR HIP WITH PELVIS RIGHT Dashawn Silvestre MD [address] [place], [place] [phone] Referral IDStatusReasonStart DateExpiration DateVisits RequestedVisits [id number] Request/[id number] / Procedures Referred By ContactReferred To Contact Diagnoses Hx of total hip arthroplasty, right Procedures XR HIP WITH PELVIS RIGHT Dashawn Silvestre MD [address] [place], [place] [phone] Referral IDStatusReasonStart DateExpiration DateVisits RequestedVisits [id number] Request/[id number] / Procedures Referred By ContactReferred To ContactPulmonary Disease / Pulmonology Diagnoses Pulmonary nodule Muna Otto MD [address] [facility] [address] [place] [address] Carson Gallagher MD [address] [place] [phone] Referral IDStatusReasonStart DateExpiration DateVisits RequestedVisits [id number] Review Specialty Services Required/Patient's Best Interest [id number] / ProceduresReferred By ContactReferred To ContactRadiology Diagnoses Pulmonary nodule Procedures CT Chest Without Contrast Angela Guerra MD [address] [place] [address] Referral IDStatusReasonStart DateExpiration DateVisits RequestedVisits [id number] Request/[id number] / Procedures Referred By ContactReferred To ContactCardiology Diagnoses Bilateral carotid artery stenosis Procedures Carotid Duplex Mohsen Sarabia MD [address] [facility] [address] [place] [phone] Referral IDStatusReasonStart DateExpiration DateVisits RequestedVisits [id number]/28/20229/28/650844XbxbfibtsVygvesgkh / Procedures Referred By ContactReferred To Contact Diagnoses Hx of total hip arthroplasty, right Procedures XR HIP WITH PELVIS RIGHT Scar Ortega APRN-HEALTHCARE OR MEDICAL [address] [place] [phone] Referral IDStatusReasonStart DateExpiration DateVisits RequestedVisits [id number] Gaudovn07/900643TqvsxjkmyRfqnptzpr / Procedures Referred By ContactReferred To ContactRadiology Diagnoses Community acquired pneumonia of left lower lobe of lung Procedures CT Chest Without Contrast Jose Escalona, KAMARI [address] [place] [address] Referral IDStatusReasonStart DateExpiration DateVisits RequestedVisits [id number] Request/[id number] / Procedures Referred By ContactReferred To ContactCardiology Diagnoses PAD (peripheral artery disease) (HCC) Procedures US Duplex Bypass Graft Left LE Mohsen Sarabia MD [address] [place] [address] Referral IDStatusReasonStart DateExpiration DateVisits RequestedVisits [id number]/19/20239/701588XxyptyyfuUuesntayd / Procedures Referred By ContactReferred To ContactCardiology Diagnoses PAD (peripheral artery disease) (HCC) Procedures Ultrasound ankle / brachial indices extremity complete Mohsen Sarabia MD [address] [place] [address] Referral IDStatusReasonStart DateExpiration DateVisits RequestedVisits [id number]/19/20239/[id number] IDStatusReasonStart DateExpiration DateVisits RequestedVisits [id number] Tuoanxn52/5/2023182350AxjmroepkEhaydsucf / ProceduresReferred By ContactReferred To Contact Diagnoses Seasonal allergic rhinitis due to pollen Zoë King PA [address] [address] Referral IDStatusReasonStart DateExpiration DateVisits RequestedVisits [id number] Review/ Hospital Course Note CLINICAL SUMMARY Please take this summary document to your follow up appointments. [facility] 11/29/19 11:09 [address] [place]. [address] PATIENT INFORMATION Name: TRISTIN POWELL Address: [address] [address] Age: 79 Years Phone: [phone] : 1940 12:00 MRN: [id number] Sex: Male Race: White Ethnicity: Not Hispan/Lat Admitted From: Clinic or [facility] Medical Service: Orthopedic Surgery Nurse Unit/Bed: (CO) 2N 0208-01 Admit Date: 11/28/2019 05:01 PCP: Flash Lovelace MD PHYSICIANS INVOLVED WITH CARE Attending Physicians: Ramana Cason MD - Orthopaedic Surg Admitting Physician: Ramana Cason MD - Orthopaedic Surg Primary Care Physician:Flash Lovelace MD,[facility], - Consults: IWONA Wren - [...] your doctor if you can take an [id number] medicine. If you think your pain medicine [...] Log into your personal health record on [email or web address] Measures and enter H742 in the Education box to learn more about Femoral-Tibial Bypass Surgery: What to Expect at Home. Current as of: March 18, 2018 Content Version: 11.9 9465-5150 [employer]. Care instructions adapted under license by your healthcare professional. If you have questions about a medical condition or this instruction, always ask your healthcare professional. [employer] disclaims any warranty or liability for your [...] 10/05/2018 6:46 AM EST [facility] P: [phone] F: [phone] * Additional Instructions* Gilbert Guerra DPM - [...] Name: Tristin Powell : 1940 MR #: [id number] Admit Date: 1070905 Assessment and Plan: Tristin Powell is a 78 y.o. male with a PMH of PVD s/p LLE angio with stent placement 08/09, prostatecancer, PVD, CAD, HTN and a PSH of L ankle ORIF and thriple CABG in october 2016 with L saphenous vein harvested who presented to [facility] 09/04/2018 as a transfer from [place] for second opinion regarding left lower extremity [...] Final Result Stable chest. No acute disease. [facility] Workstation ID: [id number] Saphenous vein mapping, limited Final Result Cardiac Catheterization Final Result Ultrasound duplex arterial leg left Final Result XR Comparison Import Final Result Us Doppler Ankle/brachial Index Result Date: 09/10/2018 Non-Invasive Vascular Patient: SHERRY Bazan [facility] Rec#: [id number] (Age): 1940(78y) Study Date: 09/10/2018 Room#: 8506 Type: Inpatient Sex: M Reading: RICO TURK Reading: Ben Hahn MD, RPVI Referring: Esau Alejandro her: Andre Madrid RDCS/RVT Procedure Info: [id number] Study Quality: Lower Arterial Doppler: adequate __ [...] Esau Alejandro MD General Surgery PGY-1 Pager [phone] *After 5pm, or on weekends, page [phone]* * Rojelio Woody MD - 09/13/2018 8:52 AM EST [facility] 09/13/2018 Tristin Powell 1940 [id number] Assessment/Plan: Tristin Powell is a 78 y.o. male with a history of PVD s/p LLE angio with stent placement 08/09, prostate cancer, PVD, CAD, HTN who presented to [facility] 09/04/2018 as a transfer from [place] for second opinion regarding left lower extremity pain and discoloration that was present two days prior to admit there on 08/30/18. On admit his exam was notable for cool mottled left foot. He was admitted for further work up. 1. Critical LLE Ischemia: Underwent LLE Popliteal stent 08/09/18 in [place], discharged on ASA and xarelto. Returned with [...] INR 1.2* 1.2* 1.2* * Vinicio, Jagruti, SENIOR BIOINFORMATICS SPECIALIST - 09/12/2018 1:57 PM EST Physical Therapy [...] Stand Pivot Transfers: Mod, Two person assist Glue Cook: Wheeled walker, 2 people, Gait belt Skilled [...] to facilitate increased strength and [facility] independence of fuctional activity. 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) Comments: planning to provide 20/03 assist from [...] - 09/12/2018 1:41 PM EST Progress Note: [facility] Date: 09/12/2018 Patient name: [...] needed -Please call with questions -Presented to [facility] 09/04/2018 as a transfer from [place] for second opinion regarding left lower extremity [...] on hospital day 8 as transfer from [place] for second opinion for LLE pain and [...] artery disease involving coronary bypass graft of [place]amp[place] heart without angina pectoris ARTERIOSCLEROSIS OF CORONARY [...] SADIA heparin (porcine) 5,000 Units Subcutaneous [facility] metoprolol succinate 50 mg Oral Daily [...] No Discharge Readiness Expected Discharge Date: 09/13/18 [facility] Disposition D/C Disposition: Home Health Care Services Related to Current Admission?: Yes Agency/Destination: [facility] Needs : Home health care Met with pt's dtr to discuss dschg plan. They wish to have referral sent [facility]. Sent order for HHCfor RN, PT, OT. Sent referral to [facility]. Notified [facility] of referral. Updated AVS. * Rojelio Woody MD - 09/12/2018 11:37 AM EST [facility] Inpatient Progress Note 09/12/2018 Tristin Powell 1940 [id number] Assessment/Plan: Tristin Powell is a 78 y.o. male with a history of PVD s/p LLE angio with stent placement 08/09, prostate cancer, PVD, CAD, HTN who presented to [facility] 09/04/2018 as a transfer from [place] for second opinion regarding left lower extremity pain and discoloration that was present two days prior to admit there on 08/30/18. On admit his exam was notable for cool mottled left foot. He was admitted for further work up. 1. Critical LLE Ischemia: Underwent LLE Popliteal stent 08/09/18 in [place], discharged on ASA and xarelto. Returned with [...] Estimated Energy Needs Total Energy Estimated Needs: 4293-2867 kcal Method for Estimating Needs: MSJ + 20% Total Protein Estimated Needs: 88-106 g Method for Estimating Needs: 1-1.2 g/kg IBW (BMI 24.9) * Esau Alejandro MD - 09/12/2018 9:17 AM EST VASCULAR SURGERY PROGRESS NOTE 09/12/18 Patient Name: Tristin Powell : 1940 MR #: [id number] Admit Date: 1070905 Assessment and Plan: Tristin Powell is a 78 y.o. male with a PMH of PVD s/p LLE angio with stent placement 08/09, prostatecancer, PVD, CAD, HTN and a PSH of L ankle ORIF and thriple CABG in october 2016 with L saphenous vein harvested who presented to [facility] 09/04/2018 as a transfer from [place] for second opinion regarding left lower extremity [...] Final Result Stable chest. No acute disease. [facility] Workstation ID: [id number] Saphenous vein mapping, limited Final Result Cardiac Catheterization Final Result Ultrasound duplex arterial leg left Final Result XR Comparison Import Final Result Us Doppler Ankle/brachial Index Result Date: 09/10/2018 Non-Invasive Vascular Patient: SHERRY Bazan Robert Rec#: [id number] (Age): 1940(78y) Study Date: 09/10/2018 Room#: 8506 Type: Inpatient Sex: M Reading: RICO FARFANC Reading: Ben Hahn MD, RPVI Referring: Esau Alejandro her: JuliusAndre la RDCS/RVT Procedure Info: [id number] Study Quality: Lower Arterial Doppler: adequate __ [...] Esau Alejandro MD General Surgery PGY-1 Pager [phone] *After 5pm, or on weekends, page [phone]* * Maranda Meléndez, HEALTHCARE OR MEDICAL - 09/11/2018 3:45 PM EST Progress Note: [facility] Date: 09/11/2018 Patient name: [...] needed -Please call with questions -Presented to [facility] 09/04/2018 as a transfer from [place] for second opinion regarding left lower extremity [...] on hospital day 7 as transfer from [place] for second opinion for LLE pain and [...] artery disease involving coronary bypass graft of wamp[place] heart without angina pectoris ARTERIOSCLEROSIS OF CORONARY [...] SADIA heparin (porcine) 5,000 Units Subcutaneous [facility] metoprolol succinate 50 mg Oral Daily [...] Woody MD - 09/11/2018 1:53 PM EST [facility] Inpatient Progress Note 09/11/2018 Tristin Powell 1940 [id number] Assessment/Plan: Tristin Powell is a 78 y.o. male with a history of PVD s/p LLE angio with stent placement 08/09, prostate cancer, PVD, CAD, HTN who presented to [facility] 09/04/2018 as a transfer from [place] for second opinion regarding left lower extremity pain and discoloration that was present two days prior to admit there on 08/30/18. On admit his exam was notable for cool mottled left foot. He was admitted for further work up. Labs prior to transfer notable for Cr 0.7. 1. Critical LLE Ischemia: s/p LLE angiogram 08/09/18 with popliteal balooning and stent in [place], Discharged on ASA and xarelto. Returned to the [facility] with worsening pain and discoloration of [...] Name: Tristin Powell : 1940 MR #: [id number] Admit Date: 1070905 Assessment and Plan: Tristin Powell is a 78 y.o. male with a PMH of PVD s/p LLE angio with stent placement 08/09, prostatecancer, PVD, CAD, HTN and a PSH of L ankle ORIF and thriple CABG in october 2016 with L saphenous vein harvested who presented to [facility] 09/04/2018 as a transfer from [place] for second opinion regarding left lower extremity [...] Final Result Stable chest. No acute disease. [facility] Workstation ID: [id number] Saphenous vein mapping, limited Final Result Cardiac Catheterization Final Result Ultrasound duplex arterial leg left Final Result XR Comparison Import Final Result Us Doppler Ankle/brachial Index Result Date: 09/10/2018 Non-Invasive Vascular Patient: SHERRY [facility]azan [facility] Rec#: [id number] (Age): 1940(78y) Study Date: 09/10/2018 Room#: 8506 Type: Inpatient Sex: M Reading: RICO TURK Reading: Ben Hahn MD, RPVI Referring: Esau Alejandro her: Andre Madrid RDCS/INOCENCIO Procedure Info: [id number] Study Quality: Lower Arterial Doppler: adequate __ [...] Esau Alejandro MD General Surgery PGY-1 Pager [phone] *After 5pm, or on weekends, page [phone]* Associated attestation - Mohsen Sarabia MD - 09/11/2018 5:05 PM EST Patient seen and examined. I have personally reviewed all pertinent labs, radiological studies and records. I have personally examined the patient and agree with resident/RESIDENT CARE DIRECTOR/PA assessment and plan. * Flynn Mann, SHIRLEY - 09/11/2018 8:09 AM EST Patient Name: Tristin Powell MR #: [id number] : 1940 Physicians: Flash Lovelace MD (Family); [...] PLT 246 09/10/2018 No results found for: UOTI3ITc results found for: SEDRATE No results found [...] artery disease involving coronary bypass graft of wamp[place]ag heart without angina pectoris ARTERIOSCLEROSIS OF CORONARY [...] Center with Dr. Mann at [id number] [facility]. Case discussed with Dr. Sarabia. Consider home going antibiotics for coverage of any residual cellulitis. Clinical area of warmth and erythema could be due to reperfusion, but cannot rule out of residual cellulitis as well. Flynn Mann DPM, FACFAS Electronically signed by the above physician 09/11/18 * Ronnie Warren MD - 09/10/2018 12:04 PM EST Progress Note: [facility] Date: 09/10/2018 Patient name: [...] needed -Please call with questions -Presented to [facility] 09/04/2018 as a transfer from [place] for second opinion regarding left lower extremity [...] on hospital day 6 as transfer from [place] for second opinion for LLE pain and [...] artery disease involving coronary bypass graft of [place] heart without angina pectoris ARTERIOSCLEROSIS OF CORONARY [...] Name: Tristin Powell : 1940 MR #: [id number] Admit Date: 1070905 Assessment and Plan: Tristin Powell is a 78 y.o. male with a PMH of PVD s/p LLE angio with stent placement 08/09, prostatecancer, PVD, CAD, HTN and a PSH of L ankle ORIF and thriple CABG in october 2016 with L saphenous vein harvested who presented to [facility] 09/04/2018 as a transfer from [place] for second opinion regarding left lower extremity [...] Final Result Stable chest. No acute disease. [facility] Workstation ID: [id number] Saphenous vein mapping, [...] Esau Alejandro MD General Surgery PGY-1 Pager [phone] *After 5pm, or on weekends, page [phone]* * Vianca Franco DO - 09/10/2018 7:57 AM EST [facility] 09/10/2018 Tristin Powell 1940 [id number] Assessment/Plan: Tristin Powell is a 78 y.o. male with a history of PVD s/p LLE angio with stent placement 08/09, prostate cancer, PVD, CAD, HTN who presented to [facility] 09/04/2018 as a transfer from [place] for second opinion regarding left lower extremity pain and discoloration that was present two days prior to admit there on 08/30/18. On admit his exam was notable for cool mottled left foot. He was admitted for further work up. Labs prior to transfer notable for Cr 0.7. 1. Critical LLE Ischemia: s/p LLE angiogram 08/09/18 with popliteal balooning and stent in [place], Discharged on ASA and xarelto. Returned to the [facility] with worsening pain and discoloration of [...] Franco DO - 09/09/2018 9:18 AM EST [facility] Inpatient Progress Note 09/09/2018 Tristin Powell 1940 [id number] Assessment/Plan: Tristin Powell is a 78 y.o. male with a history of PVD s/p LLE angio with stent placement 08/09, prostate cancer, PVD, CAD, HTN who presented to [facility] 09/04/2018 as a transfer from [place] for second opinion regarding left lower extremity pain and discoloration that was present two days prior to admit there on 08/30/18. On admit his exam was notable for cool mottled left foot. He was admitted for further work up. Labs prior to transfer notable for Cr 0.7. 1. Critical LLE Ischemia: s/p LLE angiogram 08/09/18 with popliteal balooning and stent in [place], Discharged on ASA and xarelto. Returned to the [facility] with worsening pain and discoloration of [...] Name: Tristin Powell : 1940 MR #: [id number] Admit Date: 1070905 Assessment and Plan: Tristin Powell is a 78 y.o. male with a PMH of PVD s/p LLE angio with stent placement 08/09, prostatecancer, PVD, CAD, HTN and a PSH of L ankle ORIF and thriple CABG in october 2016 with L saphenous vein harvested who presented to [facility] 09/04/2018 as a transfer from [place] for second opinion regarding left lower extremity [...] Final Result Stable chest. No acute disease. ITI Tech Workstation ID: [id number] Saphenous vein mapping, limited Final Result Cardiac Catheterization Final Result Ultrasound duplex arterial leg left Final Result XR Comparison Import Final Result Xr Chest 1 View Result Date: 09/07/2018 EXAMINATION: AP CHEST HISTORY: Hypoxia. COM[facility] 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 Coronary artery stents are visualized. Minimal linear scarring at the lung bases, unchanged. No pneumothorax. No definite pleural ef fusion no new opacities. Stable chest. No acute disease. ITI Tech Workstation ID: [id number] Xr Fluoroscopy Time Result Date: 09/08/2018 This is an auto finalized result. Please refer to patient chart for further information. Saphenous Vein Mapping, Limited Result Date: 09/06/2018 Non-Invasive Vascular Patient: SHERRY TRISTIN [facility] Rec#: [id number] (Age): 1940(78y) Study Date: 09/06/2018 Room#: 3386 Type: Inpatient Sex: M Reading: Manuel Leonard MD, RPVI, RVT Referring: ARISTEO Insurance Agent: ZeyadTom chauhan RDCS, RVT Procedure Info: [id number] Study Quality: Lower Vein Map: limited Study [...] further information. Miryam Rincon MD PGY-2 Surgery [phone] After 5pm and on Weekends, please page [phone] (Surgery Blanker Operator physician relations representative) * Joi Vaughan, RN - 09/08/2018 10:53 [...] Franco DO - 09/08/2018 9:38 AM EST [facility] In[facility] Progress Note 09/08/2018 Tristin Powell 1940 [id number] Assessment/Plan: Tristin Powell is a 78 y.o. male with a history of PVD s/p LLE angio with stent placement 08/09, prostate cancer, PVD, CAD, HTN who presented to [facility] 09/04/2018 as a transfer from [place] for second opinion regarding left lower extremity pain and discoloration that was present two days prior to admit there on 08/30/18. On admit his exam was notable for cool mottled left foot. He was admitted for further work up. Labs prior to transfer notable for Cr 0.7. 1. Critical LLE Ischemia: s/p LLE angiogram 08/09/18 with popliteal balooning and stent in [place], Discharged on ASA and xarelto. Returned to the [facility] with worsening pain and discoloration of [...] Name: Tristin Powell : 1940 MR #: [id number] Admit Date: 1070905 Assessment and Plan: Tristin Powell is a 78 y.o. male with a PMH of PVD s/p LLE angio with stent placement 08/09, prostatecancer, PVD, CAD, HTN and a PSH of L ankle ORIF and thriple CABG in october 2016 with L saphenous vein harvested who presented to [facility] 09/04/2018 as a transfer from [place] for second opinion regarding left lower extremity pain and discoloration Chronic LLE ischemia S/p peroneal femoral bypass 09/07/18 - Patient underwent LLE angiogram with popliteal ballooning and stent 08/09/2018 in [place], sent onaspirin and xarelto - Angiography 09/05/18 showed Infrapopliteal Artery Stenosis Left , severe ASPVD with occluded stent.No reasonable endovascular options. - Diet as tolerated, HLIV - Rooke boot LLE - ET consult for skin blistering - Pain and N control - Continue P/O care - Discussed with Dr. Sarabia Subjective [facility] Physical Examination: Vital Signs: BP 133/62 (BP [...] Final Result Stable chest. No acute disease. [facility] Workstation ID: [id number] Saphenous vein mapping, limited Final Result Cardiac Catheterization Final Result Ultrasound duplex arterial leg left Final Result XR Comparison Import Final Result Cardiac Catheterization Result Date: 09/05/2018 Patient Name: TRISTIN POWELL Date of : 1940 Procedure Date: 09/05/2018 Physician(s): Ben Hahn MD Cath #: [id number] Ref. 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 Dyslipidemia: Yes Hypertension: Yes Pre-OP Diagnosis/Indication: Deann [...] amputation COMMENTS: No Complications ____ Equipment: Sheath(s) ReInnervate 5F 10CM PINNACLE SHEATH [employer] 6F 45CM .038 FLEXOR CHECKFLO ANSEL1 SHEATH Wire(s) [employer] .035 X 150CM FIXED J WIRE Catheter(s) [employer] 5F MP TEMPO AQUA CATHETER Other [employer] .035 CXI ANGLED SUPPORT CATHETERS SHER VASCULAR [...] AP CHEST HISTORY: Hypoxia. COMPARISON: [facility]01[facility]. 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 Coronary artery stents are visualized. Minimal linear scarring at the lung bases, unchanged. No pneumothorax. No definite pleural ef fusion no new opacities. Stable chest. No acute disease. [facility]/[employer] Workstation ID: [id number] Xr Fluoroscopy Time Result Date: 09/08/2018 This is an auto finalized result. Please refer to patient chart for further information. Saphenous Vein Mapping, Limited Result Date: 09/06/2018 Non-Invasive Vascular Patient: SHERRY [facility] Rec#: [id number] (Age): 1940(78y) Study Date: 09/06/2018 Room#: 3386 Type: Inpatient Sex: M Reading: Manuel Leonard MD, RPVI, RVT Referring: ARISTEO Insurance Agent: Tom Jeffers RDCS, RVT Procedure Info: [id number] Study Quality: Lower Vein Map: limited Study [...] Esau Alejandro MD General Surgery PGY-1 Pager [phone] *After 5pm, or on weekends, page [phone]* * Sirisha Doshi RD - 09/07/2018 2:26 [...] Estimated Energy Needs Total Energy Estimated Needs: 3884-3842 kcal Method for Estimating Needs: MSJ + 20% Total Protein Estimated Needs: 88-106 g Method for Estimating Needs: 1-1.2 g/kg IBW (BMI 24.9) Assessed By: Sirisha Doshi RD, LD * Maranda Meléndez, HEALTHCARE OR MEDICAL - 09/07/2018 1:15 PM EST Progress Note: [facility] Date: 09/07/2018 Patient name: Tristin Powell Date Of : 1940 Assessment/Plan: Pain of left lower extremity Assessment & Plan -Presented to [facility] 09/04/2018 as a transfer from [place] for second opinion regarding left lower extremity [...] in pain -Reports pain is uncontrolled with RN PROCEDURE Dilaudid pump, and pain does not decrease [...] on hospital day 3 as transfer from [place] for second opinion for LLE pain and discoloration. S/p LLE angio with stent placement 08/09/18. HPI: Patient found writhing in bed, holding his left leg; family members at bedside. He is alert and oriented, and appears extremely uncomfortable. Patient states he needs something for his pain now;RN PROCEDURE Dilaudid drip still in place. Family asking [...] artery disease involving coronary bypass graft of [place] heart without angina pectoris ARTERIOSCLEROSIS OF CORONARY [...] from last 7 days Lab Units 09/07/18 0755 09/06/18 2219 09/06/18 1834 09/06/18 0545 09/05/18 [...] Franco DO - 09/07/2018 10:15 AM EST [facility] Inpatient Progress Note 09/07/2018 Tristin Hortensia Powell 1940 [id number] Assessment/Plan: Tristin Powell is a 78 y.o. male with a history of PVD s/p LLE angio with stent placement 08/09, prostate cancer, PVD, CAD, HTN who presented to [facility] 09/04/2018 as a transfer from [place] for second opinion regarding left lower extremity pain and discoloration that was present two days prior to admit there on 08/30. On admit his exam was notable for cool mottled left foot. He was admitted for further work up. Labs prior to transfer notable for Cr 0.7. 1. Critical LLE Ischemia: s/p LLE angio 08/09, Discharged on xeralto. Returned to the [facility] with worsening pain and discoloration of [...] the setting of acute limb ischemia.On dilaudid RN PROCEDURE per pain management. 3. Opioid induced constipation: [...] has uncontrolled LLE pain. Currently on Dilaudid RN PROCEDURE pump and pt is maxing his dose at 1.5mg q1h. Pt states he has continued pain in LLE. Instructed nursing staff tocontact pain management for updated pain plan/RN PROCEDURE titration. Plan for bypass surgery today. Physical [...] Franco DO - 09/06/2018 11:35 AM EST [facility] Inpatient Progress Note 09/06/2018 Tristin Hortensia Sherry 1940 [id number] Assessment/Plan: Tristin Powell is a 78 y.o. male with a history of PVD s/p LLE angio with stent placement 08/09, prostate cancer, PVD, CAD, HTN who presented to [facility] 09/04/2018 as a transfer from [place] for second opinion regarding left lower extremity pain and discoloration that was present two days prior to admit there on 08/30. On admit his exam was notable for cool mottled left foot. He was admitted for further work up. Labs prior to transfer notable for Cr 0.7. 1. Critical LLE Ischemia: s/p LLE angio 08/09, Discharged on xeralto. Returned to the [facility] with worsening pain and discoloration of [...] CALCIUM mg/dL 9.5 9.3 * Yasmeen Diaz, HEALTHCARE OR MEDICAL - 09/06/2018 7:37 AM EST [facility] Heart & Vascular Cardiology Daily Progress Note Name: Tristin Powell Age: 78 y.o. Date: September 06, 2018 ASSESSMENT & PLAN: Critical lower limb ischemia Assessment & Plan Pt s/p LLE angiogram with Dr Hahn who feels that the pt has no further endovascular options. He has consulted Dr. Sarabia for a possible tibial bypass. Pt s/p LLE critical limb ischemia [place] class 4 rest pain with distal discoloration to his toes. Pt is s/p L pop angioplasty with stent placement 08/09 at [facility] in [place], [place]. Ptwas placed on Xarelto and ASA. [...] artery disease involving coronary bypass graft of [place] heart without angina pectoris Assessment & Plan [...] CKTOTAL, CKMB, TROPONINI, TROPONINT Yasmeen Diaz, MSN, RESIDENT CARE DIRECTOR-C Nurse Practitioner 09/06/2018 * Vianca Franco DO - 09/05/2018 11:11 AM EST [facility] Inpatient Progress Note 09/05/2018 Tristin Powell 1940 [id number] Assessment/Plan: Tristin Powell is a 78 y.o. male with a history of PVD s/p LLE angio with stent placement 08/09, prostate cancer, PVD, CAD, HTN who presented to [facility] 09/04/2018 as a transfer from [place] for second opinion regarding left lower extremity [...] 08/09, Discharged on xeralto. Returned to the [facility] with worsening pain and discoloration of [...] EST Patient Name: Tristin Powell MR #: [id number] : 1940 Physicians: Flash Lovelace MD (Family); No ref. provider found (Referring) History of Present Illness: Tristin Powell is a 78 y.o. male Dictation on: 09/20/2018 5:58 PM by: FLYNN MANN [[id number]] History: The following portions of the patient's [...] None 09/20/2018 2:00 PM Wound Bed Characteristics Black;Yellow;Red;[place] 09/20/2018 2:00 PM Edna-wound Assessment Dry;Ecchymosis 09/20/2018 2:00 PM Treatments Not Applicable 09/20/2018 2:00 PM Hemostasis Not applicable 09/20/2018 2:00 PM Cleansed Sterile saline 09/20/2018 2:00 PM Primary Dressing Betadine;Impregnated gauze 09/20/2018 2:00 PM Secondary Dressing Dry gauze dressing;Gauze roll;Gauze pad 09/20/2018 2:00 PM Compression Dressing Not Applicable 09/20/2018 2:00 PM Dictation on: 09/20/2018 5:59 PM by: FLYNN MANN [[id number]] Assessment and Plan: SNOMED CT(R) 1. Critical lower limb ischemia CRITICAL LOWER LIMB ISCHEMIA Prealbumin Albumin Protein,Total XR Foot Left 3+ Views (Standard) XR Ankle Left 3+ Views (Standard) 2. Gangrene (HCC) GANGRENOUS DISORDER 3. PVD (peripheral vascular disease) (HCC) PERIPHERAL VASCULAR DISEASE 4. Left foot pain PAIN IN LEFT FOOT Dictation on: 09/20/2018 6:00 PM by: FLYNN MANN [[id number]] Flynn Mann, DPM, FACFAS Electronically signed by [...] Lew LISW - 09/27/2018 10:35 AM EST [facility] fax[place] signed orders from pt's 09/20/18 clinic visit to pt's [facility] [place]. [facility] previously faxed same on 09/20/18 but now signed by physician. in this encounter* Radha Parker RN - 10/04/2018 4:59 PM EST Patient was admitted to [facility] for surgery. * Flynn Mann DPM - 10/04/2018 4:50 PM EST Patient Name: Tristin Powell MR #: [id number] : 1940 Physicians: Flash Lovelace MD (Family); [...] post bypass surgery with Dr. Sarabia at [facility] on 09/07/2018. No new complaints per [...] margins. We will admit the patient to [facility] today, and he will receive IV [...] Canseco MD - 10/12/2018 9:44 AM EST [facility] DAILY PROGRESS NOTE Assessment and Plan 78 y.o. male patient of Flash Lovelace MD with history of PAD, CAD and HTN that presented to [facility] with need for left foot partial amputation. [...] lovenox Qureshi Catheter: none Disposition Discharge Location: [facility] Estimated Discharge Date: Medically stable to [...] 14.5-hour post-dose level Pharmacist: Edwina Browne RPh,PharmD, [facility] Contact Number: Vocera OR pharmacist * Monica [...] Independent Transfers Sit to Stand: Contact guard Glue Cook: Wheeled walker Skilled Intervention: cont. to reinforce [...] Wheelchair-electric Prior Level of Function Level of [place]: Independent with ADLs and functional transfers, Independent [...] labs reviewed. -Empiric IV Vancomycin. -Radiographs reviewed. -[facility] c'sed for medical management. -WBAT to LLE -DVT ppx lovenox. -Patient discussed with Dr. Mann who agrees with assessment and plan. Patient had bypass surgery ofLLE at [facility] in August. Pt now s/p left midfoot [...] articulations. Surgical drain present. VK/mll Workstation ID: [id number] XR Chest 1 View Final Result 1. [...] PM EST VM from Jose Manuel @ [facility] requesting final Iv atb orders. Return [...] Sit: Modified independence Sit to Supine: Modified [place] Functional Transfers Sit to Stand: Contact guard [...] Wheelchair-electric Prior Level of Function Level of [place]: Independent with ADLs and functional transfers, Independent [...] 36-hour post-dose level Pharmacist: Edwina Browne RPh,PharmD, [facility] Contact Number: Vocera OR pharmacist * Jeanette Ramirez RN - 10/11/2018 1:03 PM EST Call from daughter Monica Zaidi requesting update on pre-cert and possible transport needs. Advised Monica we do not yet have pre-cert and we plan to notify her of the same once we obtain it. She requests to transport her father to [facility]. She relates they have been transporting him SENIOR BIOINFORMATICS SPECIALIST and are aware of his limited gait and transferring capabilities. Monica plans to arrive here 10/12 after an AM meeting. Plan to contact Monica once pre-cert is obtained # [phone]. * Alice Delvalle, SENIOR BIOINFORMATICS SPECIALIST - 10/11/2018 11:33 AM EST Physical [...] to Chair: (x 2 for line management) Glue Cook: Wheeled walker Skilled Intervention: cued to achieve [...] Wheelchair-electric Prior Level of Function Level of [place]: Independent with ADLs and functional transfers, Independent [...] Canseco MD - 10/11/2018 10:43 AM EST [facility] DAILY PROGRESS NOTE Assessment and Plan 78 y.o. male patient of Flash Lovelace MD with history of PAD, CAD and HTN that presented to [facility] with need for left foot partial amputation. [...] lovenox Qureshi Catheter: none Disposition Discharge Location: [facility] Estimated Discharge Date: Pending Hgb stability [...] labs reviewed. -Empiric IV Vancomycin. -Radiographs reviewed. -[facility] c'sed for medical management. -WBAT to LLE -DVT ppx lovenox. -Patient discussed with Dr. Mann who agrees with assessment and plan. Patient had bypass surgery ofE at [facility] in August. Pt now s/p left midfoot [...] articulations. Surgical drain present. VK/mll Workstation ID: [id number] XR Foot Left 3+ Views (Standard) Final [...] PAD, CAD and HTN that presented to [facility] with need for left foot partial amputation. Action: SW met with pt who requests referral to [facility] [place]. SW educated pt on referral/PC process. Pt [...] labs reviewed. -Empiric IV Vancomycin. -Radiographs reviewed. -[facility] c'sed for medical management. -WBAT to LLE -DVT ppx lovenox. -Patient discussed with Dr. Mann who agrees with assessment and plan. Patient had bypass surgery ofLLE at [facility] in August. Pt now s/p left midfoot [...] articulations. Surgical drain present. VK/mll Workstation ID: [id number] XR Foot Left 3+ Views (Standard) Final [...] Canseco MD - 10/10/2018 9:37 AM EST [facility] DAILY PROGRESS NOTE Assessment and Plan 78 y.o. male patient of Flash Lovelace MD with history of PAD, CAD and HTN that presented to [facility] with need for left foot partial amputation. [...] Information Primary Caregiver: Self Accompanied by/Relationship: none Catholic/Cultural Factors: none Legal Documentation Advance Directives: (none) Resuscitation Status: Resuscitate Resources Financial Resources: Other (Comment)([employer] Medicare insurance confirmed) Community Resources: Other (Comment)(PCP Dr. Lovelace [phone]) Discharge Plan Shared UM/CC and RN Source of Information: Patient Contact Phone Number: emergency contact Amina Zaidi p:[phone] Living Arrangements: Children Support Systems: Children Functional Status: Independent Type of Residence: Private residence Prior to Admission Home Care Services: Yes Type of Current Home Care Services: Home health care Current Agency Name: [facility] Current Home Equipment: Walker, Wheeled walker, Toilet seat pyridine recovery operator, Tub/Shower chair Insurance Coverage for Prescriptions: [...] Estimated Energy Needs Total Energy Estimated Needs: 2654-8808 kcal Method for Estimating Needs: 25-30 kcal/kg Total Protein Estimated Needs: 95-144 gm Method for Estimating Needs: 1.0-1.2 gm/kg Assessed by: Gaye Carver RD,LD Phone #: [phone] Pager #: [phone] * Stan Canseco MD - 10/09/2018 11:01 AM EST [facility] DAILY PROGRESS NOTE Assessment and Plan 78 y.o. male patient of Flash Lovelace MD with history of PAD, CAD and HTN that presented to [facility] with need for left foot partial amputation. [...] primary Qureshi Catheter: none Disposition Discharge Location: [facility] Estimated Discharge Date: Medically stable to ms home Outpatient Testing: none Subjective Resting comfortably. [...] labs reviewed. -Empiric IV Vancomycin. -Radiographs reviewed. -[facility] c'sed for medical management. -WBAT to LLE -DVT ppx lovenox. -Patient discussed with Dr. Mann who agrees with assessment and plan. [facility]. Pt now s/p left midfoot [...] articulations. Surgical drain present. CASSANDRA/karie Workstation ID: [id number] XR Foot Left 3+ Views (Standard) Final [...] Canseco MD - 10/08/2018 10:45 AM EST [facility] DAILY PROGRESS NOTE Assessment and Plan 78 y.o. male patient of Flash Lovelace MD with history of PAD, CAD and HTN that presented to [facility] with need for left foot partial amputation. [...] reviewed: No acute abnormalities or ST gas -[facility] c'sed for medical management and preoperative clearance. -WBAT to LLE -DVT ppx lovenox. -Patient discussed with Dr. Mann who agrees with assessment and plan. Pt with mummification and drygangrene of left forefoot, patient had bypass surgery of LLE at [facility] in August. Pt with some local erythema [...] participate in this patient's care. Demetrice Lomeli, KenyattaD, [facility] [place]: ED Pharmacy Electronically Signed by Demetrice Lomeli, [facility],PharmD on 10/08/2018 12:15 AM EST * Aaron Choi MD - 10/07/2018 11:56 AM EST [facility] DAILY PROGRESS NOTE Assessment and Plan 78 y.o. male patient of Flash Lovelace MD with history of PAD, CAD and HTN that presented to [facility] with need for left foot partial amputation. [...] reviewed: No acute abnormalities or ST gas -[facility] c'sed for medical management and preoperative clearance. -WBAT to LLE -DVT ppx lovenox. -Patient discussed with Dr. Mann who agrees with assessment and plan. Pt with mummification and drygangrene of left forefoot, patient had bypass surgery of LLE at [facility] in August. Pt with some local erythema will monitor response to Abx. Continue daily betadine dressing changes. Plan for OR on Monday (10/08/18) for left midfoot amputation (Open vs. Closed) at 7am. Consent obtained. [facility] consulted for medical management. Patient will require preoperative risk stratification. Appreciate [facility] assistance. Further plan per Dr. Mann SUBJECTIVE [...] is clinically warranted, consider MRI or CT. [facility]/dbg Workstation ID: [id number] Echocardiogram complete (Results Pending) * Aaron Choi MD - 10/06/2018 10:50 AM EST [facility] DAILY PROGRESS NOTE Assessment and Plan 78 y.o. male patient of Flash Lovelace MD with history of PAD, CAD and HTN that presented to [facility] with need for left foot partial amputation. [...] reviewed: No acute abnormalities or ST gas -[facility] c'sed for medical management and preoperative clearance. -WBAT to LLE -DVT ppx lovenox. -Patient discussed with Dr. Mann who agrees with assessment and plan. Pt with mummification and drygangrene of left forefoot, patient had bypass surgery of LLE at [facility] in August. Pt with some local erythema will monitor response to Abx. Continue daily betadine dressing changes. Plan for OR on Monday (10/08/18) for left midfoot amputation (Open vs. Closed) at 7am. Consent to be obtained. [facility]. Patient will require preoperative risk stratification. [facility] assistance. Further plan per Dr. Mann SUBJECTIVE [...] reviewed: No acute abnormalities or ST gas -[facility] c'sed for medical management and preoperative clearance. -WBAT to LLE -DVT ppx lovenox. -Patient discussed with Dr. Mann who agrees with assessment and plan. Pt with mummification and drygangrene of left forefoot, patient had bypass surgery of LLE at [facility] in August. Pt with some local erythema will monitor response to Abx. Continue daily betadine dressing changes. Plan for OR on Monday (10/08/18) for left midfoot amputation (Open vs. Closed). [facility] consulted for medical management. Patient will require preoperative risk stratification. Appreciate [facility] assistance. Further plan per Dr. Mann SUBJECTIVE [...] further evaluation is clinically warranted, consider MRI. [facility]/dbg Workstation ID: [id number] Associated attestation [...] EST Patient Name: Tristin Powell MR #: [id number] : 1940 Physicians: Flash Lovelace MD (Family); No ref. provider found (Referring) History of Present Illness: Tristin Powell is a 78 y.o. male Dictation on: 10/18/2018 6:12 PM by: FLYNN MANN [[id number]] History: The following portions of the patient's [...] on: 10/18/2018 6:13 PM by: FLYNN MANN [[id number]] Assessment and Plan: SNOMED CT(R) 1. Gangrene (HCC) GANGRENOUS DISORDER 2. 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 (HCC) HISTORY OF AMPUTATION OF FOOT 3. PVD (peripheral vascular disease) (HCC) PERIPHERAL VASCULAR DISEASE Dictation on: 10/18/2018 6:14 PM by: FLYNN MANN [[id number]] Flynn Mann, SHIRLEY, FACFAS Electronically signed by the above physician 10/18/18 * Maia Duvall RN - 10/18/2018 4:16 PM EST Dressing changed by Dr Mann. Betadine, 4x4's, ABD pad, specialist cast padding, splint, rio bandages * Maia Duvall RN - 10/18/2018 3:39 PM EST in this encounter* Mine Lew LISW - 10/19/2018 8:38 AM EST Pt was seen in clinic 10/18/18. [facility] [place] signed [place]/c orders/instructions to pt's SNF, [facility]. in this encounter* Mine Lew LISW - 10/26/2018 9:19 AM EST Pt was seen in wound clinic 10/25/18. [facility] [place] signed orders/instructions to pt's [facility], [facility]. in this encounter* Radha Parker RN - 10/31/2018 4:45 PM EST Opened in error. in this encounter* Eugene Barnett MD - 12/17/2018 9:57 PM EDT [facility] [address] [place] [address] FAX [phone] Tristin Powell 1940 male MD Flash Peña MD [phone] Chief Complaint Patient presents with Cerumen Impaction [...] MIDFOOT AMPUTATION; Surgeon: Flynn Mann DPM; Location: [facility]; Service: Podiatry ANKLE SURGERY Left BYPASS PERONEAL FEMORAL Right 09/07/2018 Procedure: BYPASS PERONEAL FEMORAL, RIGHT SAPHENOUS VEIN HARVEST, COMPLETION ANGIOGRAM; Surgeon: Mohsen Sarabia MD; Location: [facility]; Service: Cardiovascular CARDIAC CATHETERIZATION Left 09/05/2018 Procedure: Angio Lower Extremity; Surgeon: Ben Hahn MD; Location: [facility]; Service: Cardiovascular CARDIAC SURGERY 2017 triple bypass [...] MD documented in this encounter* Rose Rosales, HEALTHCARE OR MEDICAL - 10/09/2019 5:07 PM EST VASCULAR SURGERY CONSULT NOTE Patient Name: Tristin Powell Admit Date: MR #: [id number] : 1940 Assessment and Plan: cta with [...] MIDFOOT AMPUTATION; Surgeon: Flynn Mann DPM; Location: [facility]; Service: Podiatry ANKLE SURGERY Left BYPASS PERONEAL FEMORAL Right 09/07/2018 Procedure: BYPASS PERONEAL FEMORAL, RIGHT SAPHENOUS VEIN HARVEST, COMPLETION ANGIOGRAM; Surgeon: Mohsen Sarabia MD; Location: [facility]; Service: Cardiovascular CARDIAC CATHETERIZATION Left 09/05/2018 Procedure: Angio Lower Extremity; Surgeon: Ben Hahn MD; Location: [facility]; Service: Cardiovascular CARDIAC SURGERY 2017 triple bypass [...] file Gets together: Not on file Attends zoroastrian service: Not on file Active member of [...] Instructions Prior to Surgery LOLA: Printed on:10/09/19 5732 Medication Information Take last dose on Take [...] the diagnosis & follow-upneeds. Rose Rosales CNP [phone] documented in this encounter* Flynn Mann DPM - 10/25/2018 6:03 PM EST Patient Name: Tristin Powell MR #: [id number] : 1940 Physicians: Flash Lovelace MD (Family); No ref. provider found (Referring) History of Present Illness: Tristin Powell is a 78 y.o. male Dictation on: 10/25/2018 6:03 PM by: FLYNN MANN [[id number]] History: The following portions of the patient's [...] on: 10/25/2018 6:04 PM by: FLYNN MANN [[id number]] Assessment and Plan: SNOMED CT(R) 1. 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 Gangrene (HCC) GANGRENOUS DISORDER 3. PVD (peripheral vascular disease) (HCC) PERIPHERAL VASCULAR DISEASE 4. 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 Lower extremity edema EDEMA OF LOWER EXTREMITY Dictation on: 10/25/2018 6:04 PM by: FLYNN MANN [[id number]] Flynn Mann DPM, FACFAS Electronically signed by the above physician 10/25/18 * Lori Velez RN - 10/25/2018 3:46 PM EST in this encounter* Mine Lew LISW - 09/21/2018 8:27 AM EST Pt was seen in clinic 09/20/18. [facility] signed d/c orders/instructions to pt's [facility], [facility]. in this encounter* Mohsen Sarabia MD - [...] C Davis MD Assessment Assessment Diagnosis: Osteoarthritis (GEY77-BY M47.892, Working, Medical). Posterior cervical fusion. Dr. [...] foot- Primary PAD (peripheral artery disease) ([facility]) Unspecified peripheral vascular disease Critical lower limb ischemia Unspecified circulatory system disorder Coronary artery disease involving coronary bypass graft of wamp[place]ag heart without angina pectoris Hypercholesteremia Pure hypercholesterolemia Essential hypertension Unspecified essential hypertension Class 1 obesity with body mass index (BMI) of 31.0 to 31.9 in adult Pain of left lower extremity Diagnosis Critical lower limb ischemia- Primary Unspecified circulatory system disorder Gangrene (HCC) Gangrene PVD (peripheral vascular disease) ([facility]) Unspecified peripheral vascular disease Left foot pain Pain in soft tissues of limb Diagnosis Critical lower limb ischemia Unspecified circulatory system disorder Diagnosis Gangrene (HCC)- Primary Gangrene PVD (peripheral vascular disease) ([facility]) Unspecified peripheral vascular disease Left foot pain Pain in soft tissues of limb Critical lower limb ischemia Unspecified circulatory system disorder Ulcer of toe of left foot, with necrosis of bone (HCC) Diagnosis Acute post-operative pain- Primary Gangrene of left foot (HCC) Diagnosis Gangrene (HCC)- Primary Gangrene 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 (HCC) PVD (peripheral vascular disease) ([facility]) Unspecified peripheral vascular disease Lower extremity edema Edema 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, left Diagnosis 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 (HCC) S/P bypass graft of extremity Diagnosis Referred otalgia of right ear- Primary Bilateral temporomandibular joint pain Diagnosis Bilateral carotid artery stenosis Occlusion and stenosis of carotid artery without mention of cerebral infarction Diagnosis Atherosclerosis of [place]amp[place] arteries of the extremities with ulceration (HCC) S/P bypass graft of extremity Diagnosis Atherosclerosis of [place] arteries of the extremities with ulceration ([facility]) S/P bypass graft of extremity Diagnosis Pain of left lower extremity Diagnosis S/P bypass graft of extremity PAD (peripheral artery disease) ([facility]) Unspecified peripheral vascular disease Atherosclerosis of [place] arteries of the extremities with ulceration ([facility]) Diagnosis Bilateral carotid artery stenosis Occlusion and stenosis of carotid artery without mention of cerebral infarction Diagnosis Atherosclerosis of [place] arteries of the extremities with ulceration ([facility]) Diagnosis 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 Gangrene (HCC) Gangrene PVD (peripheral vascular disease) ([facility]) Unspecified peripheral vascular disease 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, left Lower extremity edema Edema Diagnosis Gangrene of left foot (HCC)- Primary Critical lower limb ischemia Unspecified circulatory system disorder Diagnosis Atherosclerosis of [place] arteries of the extremities with ulceration ([facility]) Diagnosis Critical lower limb ischemia- Primary Unspecified circulatory system disorder Diagnosis Atherosclerosis of [place] artery of left lower extremity with rest pain ([facility]) S/P bypass graft of [...] If the bleeding does not stop, call [facility] at [phone] or go to the Emergency Room. Signs/Symptoms of infection: If you have any fever, chills, nausea, vomiting or increased odor, drainage, pain or redness to thewound, call [facility] at [phone]. If after hours, contactyour family physician or [...] regarding your home care instructions please contact [facility] at [phone]. If after hours, contact your primary care physician or go to the hospital emergency room. Please call 24 hours prior to your scheduled appointment if you need to cancel or reschedule. in this encounter* Patient Instructions* Radha Parker RN - 10/04/2018 1:14 PM EST You are being admitted to [facility] for surgery possibly Monday. Go to [facility]. in this encounter* Patient Instructions* Maia [...] If the bleeding does not stop, call [facility] at [phone] or go to the Emergency Room. Signs/Symptoms of infection: If you have any fever, chills, nausea, vomiting or increased odor, drainage, pain or redness to thewound, call [facility] at [phone]. If after hours, contactyour family physician or [...] regarding your home care instructions please contact [facility] at [phone]. If after hours, contact your primary care [...] If the bleeding does not stop, call [facility] at [phone] or go to the Emergency Room. Signs/Symptoms of infection: If you have any fever, chills, nausea, vomiting or increased odor, drainage, pain or redness to thewound, call [facility] at [phone]. If after hours, contactyour family physician or [...] regarding your home care instructions please contact [facility] at [phone]. If after hours, contact your primary care physician or go to the hospital emergency room. Please call 24 hours prior to your scheduled appointment if you need to cancel or reschedule. in this encounter Procedure Findings Note Patient: TRISTIN POWELL MRN: ([id number] Age: 79 years Sex: Male : 1940 [...] for spinal fusion. SURGEON: Ramana Cason MD VP ANALYSIS: LEONARDA Selby ANESTHESIA: General. SPECIMENS: There were no specimens removed. COMPLICA (more content not included)... Note CLINICAL SUMMARY Please take this summary document to your follow up appointments. [facility] 11/29/19 11:09 [address] [place]. [address] PATIENT INFORMATION Name: TRISTIN POWELL Address: [address] [address] Age: 79 Years Phone: [phone] : 1940 12:00 MRN: [id number] Sex: Male Race: White Ethnicity: Not Hispan/Lat Admitted From: Clinic or [facility] Medical Service: Orthopedic Surgery Nurse Unit/Bed: (CO) [...] not included)... 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 Posterior cervical fusion. Dr. [...] section and content) DATE CREATED AUTHOR 02/16/2018 [facility] DATE CREATED AUTHOR AUTHOR'S ORGANIZ ATION 09/07/2018 [facility] DATE CREATED AUTHOR AUTHOR'S ORGANIZ ATION 11/01/2018 [facility] DATE CREATED AUTHOR AUTHOR'S ORGANIZ ATION 11/02/2018 [facility] DATE CREATED AUTHOR AUTHOR'S ORGANIZ ATION 11/12/2018 [facility] DATE CREATED AUTHOR AUTHOR'S ORGANIZ ATION 05/28/2020 [facility] DATE CREATED AUTHOR AUTHOR'S ORGANIZ ATION 07/21/2021 [facility] DATE CREATED AUTHOR AUTHOR'S ORGANIZ ATION 01/02/2022 [facility] DATE CREATED AUTHOR AUTHOR'S ORGANIZ ATION 10/29/2022 [facility] DATE CREATED AUTHOR AUTHOR'S ORGANIZ ATION 11/01/2022 [facility] DATE CREATED AUTHOR AUTHOR'S ORGANIZ ATION 12/08/2022 [facility] DATE CREATED AUTHOR AUTHOR'S ORGANIZ ATION 08/15/2023 [facility] DATE CREATED AUTHOR AUTHOR'S ORGANIZ ATION 12/31/2023 [facility] DATE CREATED AUTHOR AUTHOR'S ORGANIZ ATION 05/15/2024 [facility] DATE CREATED AUTHOR AUTHOR'S ORGANIZ ATION 12/22/2024 [facility] DATE CREATED AUTHOR AUTHOR'S ORGANIZ ATION 01/24/2025 [facility] DATE CREATED AUTHOR AUTHOR'S ORGANIZ ATION 04/25/2025 [facility] DATE CREATED AUTHOR AUTHOR'S ORGANIZ ATION 05/09/2025 [facility] DATE CREATED AUTHOR AUTHOR'S ORGANIZ ATION 06/02/2025 [facility] DATE CREATED AUTHOR AUTHOR'S ORGANIZ ATION 06/10/2025 [facility] DATE CREATED AUTHOR AUTHOR'S ORGANIZ ATION 06/11/2025 [facility] DATE CREATED AUTHOR AUTHOR'S ORGANIZ ATION 06/11/2025 [facility] EPIC Reason for Visit (unrecogniz ed section and content) ReasonCommentsBlood ClotStatusReasonSpecialtyDiagnoses / ProceduresReferred By ContactReferred To Contact Diagnoses LLE claudication Procedures Angio Lower Extremity ReasonCommentsWound CheckStatusReasonSpecialtyDiagnoses / ProceduresReferred By ContactReferred To Contact Diagnoses left foot gangrenous osteomyolitis StatusReasonSpecialtyDiagnoses / ProceduresReferred By ContactReferred To ContactPending ReviewCardiology Diagnoses 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 (HCC) S/P bypass graft of extremity Procedures US Doppler ankle/brachial index Segmental doppler lower extremity arterial [place] [address] [place] [address] [address] [place] [address] ReasonCommentsCerumen ImpactionStatusReasonSpecialtyDiagnoses / Procedures Referred By ContactReferred To ContactPending ReviewCardiology Diagnoses Bilateral carotid artery stenosis Procedures Carotid Duplex Mohsen Saraiba MD [address] [place] [address] [address] [place] [address] ReasonCommentsFollow-upS/P PERONEAL- FEMORAL BYPASS 09/07/18StatusReasonSpecialty Diagnoses / ProceduresReferred By ContactReferred To ContactClosedRadiology Diagnoses S/P bypass graft of extremity PAD (peripheral artery disease) (HCC) Atherosclerosis of [place]amp[place] arteries of the extremities with ulceration (HCC) Procedures CT Angiogram Abdominal Aorta With Lower Extremity Mohsen Sarabia MD [address] [place] [address] [address] [place] [address] StatusReasonSpecialtyDiagnoses / ProceduresReferred By ContactReferred To ContactClosedCardiology Diagnoses Bilateral carotid artery stenosis Procedures Carotid Duplex Mohsen Sarabia MD [address] [place] [address] [address] [place] [address] StatusReasonSpecialtyDiagnoses / ProceduresReferred By ContactReferred To ContactClosedCardiology Diagnoses Atherosclerosis of [place] arteries of the extremities with ulceration (HCC) Procedures Ultrasound ankle / brachial indices extremity complete Mohsen Sarabia MD [address] [place] [address] [address] [place] [address] EdciqqUrtxgpzmBakdhb-liSbw-Qheuh. bypass graft 09/09ReasonCommentsFollow-up6mo per-fem bypass graftStatusReasonSpecialtyDiagnoses / ProceduresReferred By ContactReferred To ContactPending ReviewCardiology Diagnoses Atherosclerosis of [place] artery of left lower extremity with rest pain (HCC) S/P bypass graft of extremity Procedures Ultrasound duplex arterial leg left Mohsen Sarabia MD [facility] [address] [place] [address] ReasonCommentsPost Op VisitSpecialtyDiagnoses / ProceduresReferred By Contact Referred To Contact Diagnoses Pain in prosthetic joint, subsequent encounter Procedures XR HIP WITH PELVIS RIGHT Dashawn Silvestre MD [address] [place] [address] Referral IDStatusReasonStart DateExpiration DateVisits RequestedVisits [id number] Request/[id number] Lesion SpecialtyDiagnoses / ProceduresReferred By ContactReferred To Contact Diagnoses Hx of total hip arthroplasty, right Procedures XR HIP WITH PELVIS RIGHT Dashawn Silvestre MD [address] [place] [address] Referral IDStatusReasonStart DateExpiration DateVisits RequestedVisits [id number] Request/[id number]rci UpdateReasonCommentsLeg SwellingLeg PainNauseaSpecialtyDiagnoses / Procedures Referred By ContactReferred To Contact Diagnoses Cellulitis Referral IDStatusReasonStart DateExpiration DateVisits RequestedVisits [id number]h nodule and CT f/uSpecialtyDiagnoses / ProceduresReferred By ContactReferred To ContactPulmonary Disease / Pulmonology Diagnoses Pulmonary nodule Muna Otto MD [address] [facility] [address] [place] [address] Carson Gallagher MD [address] [facility] [address] [place] [address] Referral IDStatusReasonStart DateExpiration DateVisits RequestedVisits [id number] Review Specialty Services Required/Patient's Best Interest /[id number] SwellingSpecialtyDiagnoses / Procedures Referred By ContactReferred To Contact Diagnoses PAD (peripheral artery disease) (HCC) Referral IDStatusReasonStart DateExpiration DateVisits RequestedVisits [id number] / ProceduresReferred By ContactReferred To Contact Diagnoses Hx of total hip arthroplasty, right Procedures XR HIP WITH PELVIS RIGHT Scar Ortega, VP [employer]-HEALTHCARE OR MEDICAL [address] [place] [address] Referral IDStatusReasonStart DateExpiration DateVisits RequestedVisits [id number] Ejyagfk17/[id number]-qwJvpgkg Onset DateCommentsMedication Jrngpw8208/30/2022ReasonCommentsFoot InjuryShortness of BreathSpecialtyDiagnoses / ProceduresReferred By ContactReferred To Contact Diagnoses Peripheral edema Elevated troponin Community acquired pneumonia of left lower lobe of lung Referral IDStatusReasonStart DateExpiration DateVisits RequestedVisits [id number]-zaGXO-BJDBTRNQFTFH-X/P LT FEM-PERONEAL BYPASS 09/07/18, (YAMILE AND DUPLEX BYPASS GRAFT PRIOR TODAY). Patient complains of bilateral leg pain.Referral IDStatusReasonStart DateExpiration DateVisits RequestedVisits [id number] Raoqowh35/[id number] DateCommentsMed Tyjpfu7008/06/2024easonCommentsCoughShortness of BreathEmesis FeverReasonCommentsHypertensionReasonCommentsMed RefillCalmoheptadine, Zolpidem ReasonCommentsMed RefillOxycodoneReasonOnset DateCommentsMed Smmhza2010/18/2024 ReasonOnset DateCommentsMed Vtvfge0611/26/2024ReasonOnset DateCommentsMed Refill 01/02/2025ReasonCommentsFollow-upPain and R Toe color Change,S/P Peroneal Femoral Bypass Graft 09/07/2018ReasonCommentsLeg PainSpecialtyDiagnoses / ProceduresReferred By ContactReferred To Contact Diagnoses Claudication Right leg pain PAD (peripheral artery disease) (HCC) Peripheral artery disease Referral IDStatusReasonStart DateExpiration DateVisits RequestedVisits [id number] Ezchsc-wvTcvvooFgjhadjxXbpxhb-euDT - WOUND CHECK - s/p R FEM-TIB BYPASS, 03/17 - APPT PER VAN ZELAYAReasonCommentsFoot UlcerReasonCommentsWound CheckPOST-OP - FU - WOUND CHECK - S/P R FEM-TIB BYPASS, 03/17 - BLE DUPLEX GRAFT, YAMILE'S PRIOR APPT TODAY - APPT PER Alcides BOX DateCommentsMedication Coqenqjj82/02/2025Has a terrible cold and runny nose wanted to know if you could zuly in a z-pack for him.ReasonCommentsMed Refill ReasonCommentsHospital Follow-up05/09 to 05/13 due to coughing bloodReasonOnset DateCommentsMed Vupkpx6005/29/2025ReasonCommentsMedicare Annual Wellness Visit Subsequent Ben Jiang MD - 09/07/2018 3:18 PM EST H&P Notes (unrecognized sect ion and content) INTERVAL HISTORY AND PHYSICAL Patient Name: Tristin Powell Admit Date: 1070905 MR #: [id number] : 1940 The H&P has been reviewed and the patient has been examined. I concur with the findings of the H&P. There are no significant changes. It is appropriate to proceed with the planned procedure. Ben Jiang MD 09/07/2018 3:18 PM * Miryam Rincon MD - 09/06/2018 9:17 AM EST VASCULAR SURGERY CONSULT NOTE 09/06/18 Patient Name: Tristin Powell : 1940 MR #: [id number] Admit Date: 1070905 Nicolas Addendum As below, 78 y.o. male with a h/o PAD, HTN, HLD, CAD s/p cardiac stent (x7, 5334-2821), CABG (x3vv,2017; L SVH), L ankle ORIF who p/w acute on chronic critical limb ischemia and claudication. Patient states he has been having claudication symptoms in bilateral lower extremities for the past 2-3 years. Patient states that although he has been active the past several months, his symptoms have progressively worsened. In June, the patient visited a insurance agent to evaluate his left foot, in which [...] Dr. Sarabia. Miryam Rincon MD PGY-2 Surgery [phone] After 5pm and on Weekends, please page [phone] (Surgery Blanker Operator environmental studies faculty member) Assessment and Plan: Tristin Powell is a 78 y.o. male with a PMH of PVD s/p LLE angio with stent placement 08/09, prostatecancer, PVD, CAD, HTN and a PSH of L ankle ORIF and thriple CABG in october 2016 with L saphenous vein harvested who presented to [facility] 09/04/2018 as a transfer from [place] for second opinion regarding left lower extremity pain and discoloration Chronic LLE ischemia - Patient underwent LLE angiogram with popliteal ballooning and stent 08/09/2018 in [place], sent onaspirin and xarelto - Angiography 09/05/18 [...] prostate cancer presents as a transfer from [place] for concerns for left lower extremity pain and discoloration that has progressivley worsened. He has had pain and claudication symptoms for years which prompted him to to be seen 08/09 were he had ballooning and stent placement to left popliteal. He represented 1/3 with increased LLE pain that was never really helped by the stent. Pain doesn't allow him sleep. While at the [facility] he was planned to undego intervention the day of transfer but requested [facility] transfer for second opinion. Review of [...] 09/05/2018 Physician(s): Ben Hahn MD Cath #: [id number] Ref. 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 Dyslipidemia: Yes Hypertension: Yes Pre-OP Diagnosis/Indication: [place] Class/Limb Ischemia: 4 - Ischemic rest pain [...] amputation COMMENTS: No Complications ____ Equipment: Sheath(s) ReInnervate 5F 10CM PINNACLE SHEATH The ADEX 6F 45CM .038 FLEXOR CHECKFLO ANSEL1 SHEATH Wire(s) [employer] .035 X 150CM FIXED J WIRE Catheter(s) [employer] 5F MP TEMPO AQUA CATHETER Other COOK [...] Non-Invasive Vascular Patient: SHERRY Bazan Med Rec#: [id number] (Age): 1940(78y) Study Date: 09/05/2018 Room#: G93 Type: Inpatient Sex: M Reading: Pierce Moreau DO, RPVI Referring: LEVY Insurance Agent: Rima Celestin RDCS, RVT Insurance Agent: Deena Pelayo RDCS RVT Procedure Info: 84284 Study Quality: Lower Arterial Duplex: adequate Diagnosis [...] PSV Name Value Units EIA 83.2 cm/sec AIR DUCT MECHANIC 95.6 cm/sec Profunda 85.5 cm/sec SFA - prox -25 cm/sec SFA - mid -67.2 cm/sec SFA - dist 58.2 cm/sec Popliteal - dist 0 cm/sec SENIOR BIOINFORMATICS SPECIALIST 6.8 cm/sec Pre Stenosis #1 9.3 [...] Esau Alejandro MD General Surgery PGY-1 Pager [phone] *After 5pm, or on weekends, page [phone]* Associated attestation - Mohsen Sarabia MD - 09/06/2018 4:46 PM EST Patient seen and examined. I have personally reviewed all pertinent labs, radiological studies and records. I have personally examined the patient and agree with resident/RESIDENT CARE DIRECTOR/PA assessment and plan with the following additional [...] History and Physical Note 09/04/18 Tristin Bazan Sehrry 1940 [id number] Assessment/Plan: Tristin Powell is a 78 y.o. male with a history of PVD s/p LLE angio with stent placement 08/09, prostate cancer, PVD, CAD, HTN who presented to [facility] 09/04/2018 as a transfer from [place] for second opinion regarding left lower extremity [...] 08/09, Discharged on xeralto. Returned to the [facility] with worsening pain and discoloration of [...] prostate cancer presents as a transfer from [place] for concerns for left lower extremity pain anddiscoloration that was worse for two days. HE has had pain since 08/09 were he had left foot pain and had angioplasty with stent placement to left popliteal . Noted from RN at [facility] to have no No DP pulses by palpation or doppler. Positive popliteal pulse noted.blue/reddish color for the past 2 days . Pain doesn't allow him sleep. While at the [facility] he was planned to undego intervention the day of transfer but requested [facility] transfer for second opinion. [facility] records reviewed as above Patient currently [...] Tristin Powell Medication Instructions Prior to Surgery LOLA:[id number] Printed on:09/04/18 8046 Medication Information Take last dose on Take [...] Tristin Powell Admit Date: 2060905 MR #: [id number] : 1940 The H&P has been reviewed [...] Choi MD - 10/07/2018 11:56 AM EST [facility] DAILY PROGRESS NOTE Assessment and Plan 78 y.o. male patient of Flash Lovelace MD with history of PAD, CAD and HTN that presented to [facility] with need for left foot partial amputation. [...] IV Vancomycin. Monitor local erythema -Radiographs pending -[facility] c'sed for medical management and preoperative clearance. -WBAT to LLE -DVT ppx lovenox. -Patient discussed with Dr. Mann who agrees with assessment and plan. Pt with mummification and drygangrene of left forefoot, patient had bypass surgery of LLE at [facility] in August. Pt with some local erythema will monitor response to Abx. Plan for OR on Monday (10/08/18) for left midfoot amputation. [facility] consulted for medical management. Patient will require preoperative risk stratification. Appreciate [facility] assistance. Further plan per Dr. Mann HISTORY OF PRESENT ILLNESS Tristin Powell is a 78 y.o. 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 Pt was seen by Dr. Mann at the wound care clinic earlier and was admitted for IV antibiotics and surgical intervention. Pt recently underwent bypass surgery at [facility] and has had improved blood flow and demarcation of gangrene since then. Pt does state that he has a cardiac history of triple bypass and stenting but has had no recent cardiac events, does follow with a transition teacher. Pt denies any active lung disease. Pt [...] COMPLETION ANGIOGRAM; Surgeon: Mohsen Sarabia MD; Location: [facility]; Service: Cardiovascular CARDIAC CATHETERIZATION Left 09/05/2018 Procedure: Angio Lower Extremity; Surgeon: Ben Hahn MD; Location: [facility]; Service: Cardiovascular CARDIAC SURGERY STENT PLACEMENT Medications [...] agree with the findings and the plan. [facility] consulted for medical management and clearance for anticipated left foot TMA and DEREK on Monday. Patient known to Dr. Sarabia, vascular surgery at [facility], and will follow with her next [...] Powell Date of : 1940 Sex: Male LINUX NETWORK ADMINISTRATOR met w/pt and daughter at bedside to discuss d/c recommendations. Daughter reports pt will be going home with 24 hour care from his 7 children. Pt requested a SNF list and will keep his options open. LINUX NETWORK ADMINISTRATOR provided list and pt will notify LINUX NETWORK ADMINISTRATOR with choice of SNF or home tomorrow. LINUX NETWORK ADMINISTRATOR notified pt that she will not be [...] PODIATRY Patient Name: Tristin Powell MR #: [id number] : 1940 Physicians: Flash Lovelace MD (Family); [...] extremity. He eventually underwent intervention in the [place], [place] area in June and July of [...] COMPLETION ANGIOGRAM; Surgeon: Mohsen Sarabia MD; Location: [facility]; Service: Cardiovascular CARDIAC CATHETERIZATION Left 09/05/2018 Procedure: Angio Lower Extremity; Surgeon: Ben Hahn MD; Location: [facility]; Service: Cardiovascular CARDIAC SURGERY STENT PLACEMENT Family [...] PLT 234 09/10/2018 No results found for: XYIW1ACg results found for: SEDRATE No results found [...] artery disease involving coronary bypass graft of [place] heart without angina pectoris ARTERIOSCLEROSIS OF CORONARY [...] Mod, Two person assist(x2 trials with FWW) Glue Cook: Wheeled walker, 2 people, Gait belt Gait/Locomotion [...] medications Prior Level of Function Level of [place]: Independent with ADLs and functional transfers, Independent with homemaking with ambulation Lives With: Alone 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) Comments: planning to provide 20/03 assist from 7 kids Past Medical History: Diagnosis Date Avascular necrosis of bone of hip (HCC) Claudication (HCC) Herpes zoster Hyperlipidemia Hypertension Prostate cancer (HCC) Vascular disease Past Surgical History: Procedure Laterality Date ANKLE SURGERY Left BYPASS PERONEAL FEMORAL Right 09/07/2018 Procedure: BYPASS PERONEAL FEMORAL, RIGHT SAPHENOUS VEIN HARVEST, COMPLETION ANGIOGRAM; Surgeon: Mohsen Sarabia MD; Location: [facility]; Service: Cardiovascular CARDIAC CATHETERIZATION Left 09/05/2018 Procedure: Angio Lower Extremity; Surgeon: Ben Hahn MD; Location: [facility]; Service: Cardiovascular CARDIAC SURGERY STENT PLACEMENT For [...] roles. 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 assist from 7 kids Past Medical History: Diagnosis Date Avascular necrosis of bone of hip (HCC) Claudication (HCC) Herpes zoster Hyperlipidemia Hypertension Prostate cancer (HCC) Vascular disease Past Surgical History: Procedure Laterality Date ANKLE SURGERY Left BYPASS PERONEAL FEMORAL Right 09/07/2018 Procedure: BYPASS PERONEAL FEMORAL, RIGHT SAPHENOUS VEIN HARVEST, COMPLETION ANGIOGRAM; Surgeon: Mohsen Sarabia MD; Location: [facility]; Service: Cardiovascular CARDIAC CATHETERIZATION Left 09/05/2018 Procedure: Angio Lower Extremity; Surgeon: Ben Hahn MD; Location: [facility]; Service: Cardiovascular CARDIAC SURGERY STENT PLACEMENT For [...] yesterday. Patient seen in follow up by [facility]. See progress note. * Ben Pang, DO - 09/06/2018 4:26 PM EST Associated Order(s): IP CONSULT TO PAIN TEAM ANCILLARY CONSULT NOTE Patient Name: Tristin Powell Admit Date: 1070905 MR #: [id number] : 1940 Consulting Physicians: [facility] Pain Service Assessment and Plan: Pain of left lower extremity Assessment & Plan . The patient did note that he becomes somewhat fatigued after taking medication, but he has not really been sleeping well. At this point, I think would be appropriate, since he has a plan for the operating room tomorrow, to put him on an opioid naive RN PROCEDURE. We will continue to monitor. I did talk extensively with the family about RN PROCEDURE safety and only allowing him to push the button. He does have quite a doting family and they all seem to be on board, understanding the safety concerns that this might present in the event that the patient is to sleep and someone is to press the button for him. We would see how his pain syndrome develops after surgery, but RN PROCEDURE is probably the appropriate treatment. I would [...] SURGERY CONSULT NOTE 09/06/18 Patient Name: Tristin oPwell : 1940 MR #: [id number] Admit Date: 1070905 Nicolas Addendum As below, 78 y.o. male with a h/o PAD, HTN, HLD, CAD s/p cardiac stent (x7, [id number]), CABG (x3vv,2017; L [facility]), L ankle ORIF who p/w acute on chronic critical limb ischemia and claudication. Patient states he has been having claudication symptoms in bilateral lower extremities for the past 2-3 years. Patient states that although he has been active the past several months, his symptoms have progressively worsened. In June, the patient visited a insurance agent to evaluate his left foot, in which [...] Dr. Sarabia. Miryam Rincon MD PGY-2 Surgery [phone] After 5pm and on Weekends, please page [phone] (Surgery Blanker Operator environmental studies faculty member) Assessment and Plan: Tristin Powell is a 78 y.o. male with a PMH of PVD s/p LLE angio with stent placement 08/09, prostatecancer, PVD, CAD, HTN and a PSH of L ankle ORIF and thriple CABG in october 2016 with L saphenous vein harvested who presented to [facility] 09/04/2018 as a transfer from [place] for second opinion regarding left lower extremity pain and discoloration Chronic LLE ischemia - Patient underwent LLE angiogram with popliteal ballooning and stent 08/09/2018 in [place], sent onaspirin and xarelto - Angiography 09/05/18 showed Infrapopliteal Artery Stenosis Left , severe ASPVD with occluded stent.No reasonable endovascular options. - STAT vein mapping bilateral LE ordered - Will obtain and review angio images with Dr. Sarabia to assess possibility of bypass based on distal target Chief Complaint/Reason for Visit: LLE pain History of Present Illness: Tristin Poewll is a 78 y.o. male with history of PAD, CAD, prostate cancer presents as a transfer from [place] for concerns for left lower extremity pain and discoloration that has progressivley worsened. He has had pain and claudication symptoms for years which prompted him to to be seen 08/09 were he had ballooning and stent placement to left popliteal. He represented 1/3 with increased LLE pain that was never really helped by the stent. Pain doesn't allow him sleep. While at the [facility] he was planned to undego intervention the day of transfer but requested [facility] transfer for second opinion. Review of [...] heparin infusion (weight based dosing) Stopped (09/05/18 5652) sodium chloride 0.9 % 20 mL/hr (09/06/18 [...] 09/05/2018 Physician(s): Ben Hahn MD Cath #: [id number] Ref. 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 Dyslipidemia: Yes Hypertension: Yes Pre-OP Diagnosis/Indication: Bethel Class/Limb Ischemia: 4 - Ischemic rest pain [...] amputation COMMENTS: No Complications ____ Equipment: Sheath(s) ReInnervate 5F 10CM PINNACLE SHEATH The ADEX 6F 45CM .038 FLEXOR CHECKFLO ANSEL1 SHEATH Wire(s) [employer] .035 X 150CM FIXED J WIRE Catheter(s) [employer] 5F MP TEMPO AQUA CATHETER Other The ADEX .035 CXI ANGLED SUPPORT CATHETERS SHER VASCULAR [...] 09/05/2018 Non-Invasive Vascular Patient: SHERRY Jones Rec#: [id number] (Age): 1940(78y) Study Date: 09/05/2018 Room#: G93 Type: Inpatient Sex: M Reading: Pierce Moreau DO RPVI Referring: LEVY Insurance Agent: Rima Celestin RD, RVT Insurance Agent: Deena Pelayo RDCS RVT Procedure Info: [id number] Study Quality: Lower Arterial Duplex: adequate Diagnosis [...] PSV Name Value Units EIA 83.2 cm/sec AIR DUCT MECHANIC 95.6 cm/sec Profunda 85.5 cm/sec SFA - prox -25 cm/sec SFA - mid -67.2 cm/sec SFA - dist 58.2 cm/sec Popliteal - dist 0 cm/sec SENIOR BIOINFORMATICS SPECIALIST 6.8 cm/sec Pre Stenosis #1 9.3 [...] Esau Alejandro MD General Surgery PGY-1 Pager [phone] *After 5pm, or on weekends, page [phone]* Associated attestation - Mohsen Sarabia MD - 09/06/2018 4:46 PM EST Patient seen and examined. I have personally reviewed all pertinent labs, radiological studies and records. I have personally examined the patient and agree with resident/RESIDENT CARE DIRECTOR/PA assessment and plan with the following additional [...] EST Associated Order(s): IP CONSULT TO CARDIOLOGY [facility] Physicians Name: Tristin Powell Age: 78 y.o. Date: September 05, 2018 ASSESSMENT & PLAN: Critical lower limb ischemia Assessment & Plan Pt s/p LLE critical limb ischemia Bethel class 4 rest pain with distal discoloration to his toes. Pt is s/p L pop angioplasty with stent placement 08/09 at [facility] in [place], [place]. Ptwas placed on Xarelto and ASA. [...] artery disease involving coronary bypass graft of [place] heart without angina pectoris Assessment & Plan [...] pop angioplasty with stent placement 08/09 at [facility] in [facility] with Dr. Vogt. Pt was placed on Xarelto and ASA. Pt represented to [facility] 08/30 with increased LLE pain. Pt was scheduled to have a vascular surgical procedure at [facility] in [facility] and requested to be tx to [facility]. PAST MEDICAL HISTORY: Past Medical History: [...] to contact me. Respectfully, Yasmeen Diaz, MSN, RESIDENT CARE DIRECTOR-C [facility] Vascular Physicians Associated attestation - Campos Guerra MD - 09/05/2018 11:01 AM EST [facility] Physicians Vascular Staff: I saw and evaluated the patient with vascular team during inpatient rounds. I discussed the harper findings and I agree with assessment and plan as documented by our vascular [facility]. Mr. Tristin Powell is a 78 y.o. with male left lower extremity acute on chronic limb ischemia (Bethel grade 1 viable limb): Patient is a [...] you for consulting vascular. Raulito Guerra MD [facility] Vascular Medicine [facility] 09/05/18 10:54 AM [...] assistance Transfers Sit to Stand: Contact guard Glue Cook: Wheeled walker Gait/Locomotion Gait Assistance: Contact guard Assistive Device: Wheeled walker Distance: 5 Feet Pattern: L decreased step length Weight Bearing Status: Able to maintain, Non-weight bearing Home Living Type of Home: House Home Layout: One level Home Equipment: Walker, Wheeled Walker, Wheelchair-electric Prior Level of Function Level of [place]: Independent with ADLs and functional transfers, Independent with homemaking with ambulation Lives With: Alone Receives Help From: Family 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 Procedure: LEFT MIDFOOT AMPUTATION; Surgeon: Flynn Mann DPM; Location: [facility]; Service: Podiatry ANKLE SURGERY Left BYPASS PERONEAL FEMORAL Right 09/07/2018 Procedure: BYPASS PERONEAL FEMORAL, RIGHT SAPHENOUS VEIN HARVEST, COMPLETION ANGIOGRAM; Surgeon: Mohsen Sarabia MD; Location: [facility]; Service: Cardiovascular CARDIAC CATHETERIZATION Left 09/05/2018 Procedure: Angio Lower Extremity; Surgeon: Ben Hahn MD; Location: [facility]; Service: Cardiovascular CARDIAC SURGERY 2017 triple bypass [...] roles. 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 The patient's compliance is a office equipment technician and awareness of own capacity and performance is a office equipment technician to return to prior level of function. [...] Wheelchair-electric Prior Level of Function Level of [place]: Independent with ADLs and functional transfers, Independent with homemaking with ambulation Lives With: Alone Receives Help From: Family 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 Procedure: LEFT MIDFOOT AMPUTATION; Surgeon: Flynn Mann DPM; Location: [facility] OR; Service: Podiatry ANKLE SURGERY Left BYPASS PERONEAL FEMORAL Right 09/07/2018 Procedure: BYPASS PERONEAL FEMORAL, RIGHT SAPHENOUS VEIN HARVEST, COMPLETION ANGIOGRAM; Surgeon: Mohsen Sarabia MD; Location: [facility]; Service: Cardiovascular CARDIAC CATHETERIZATION Left 09/05/2018 Procedure: Angio Lower Extremity; Surgeon: Ben Hahn MD; Location: [facility]; Service: Cardiovascular CARDIAC SURGERY 2017 triple bypass [...] Tristin Powell Admit Date: 2060905 MR #: [id number] : 1940 Physicians: Flash Lovelace MD (Family); [...] 7.7/24.1 at which time he was in [facility]. At that time he was found [...] MIDFOOT AMPUTATION; Surgeon: Flynn Mann DPM; Location: [facility] OR; Service: Podiatry ANKLE SURGERY Left BYPASS PERONEAL FEMORAL Right 09/07/2018 Procedure: BYPASS PERONEAL FEMORAL, RIGHT SAPHENOUS VEIN HARVEST, COMPLETION ANGIOGRAM; Surgeon: Mohsen Sarabia MD; Location: [facility]; Service: Cardiovascular CARDIAC CATHETERIZATION Left 09/05/2018 Procedure: Angio Lower Extremity; Surgeon: Ben Hahn MD; Location: [facility]; Service: Cardiovascular CARDIAC SURGERY 2017 triple bypass [...] 09/10/2018 Non-Invasive Vascular Patient: SHERRY MENDOZA [facility] Rec#: [id number] (Age): 1940(78y) Study Date: 09/10/2018 Room#: 8506 Type: Inpatient Sex: M Reading: [place] Reading: Ben Hahn MD, RPVI Referring: Esau Alejandro her: JuliusAndre la RDCS/RVT Procedure Info: 16487 Study Quality: Lower Arterial Doppler: adequate __ [...] (Dorsalis Pedis) 116 mmHg Toe 0 mmHg YAMIEL 0.75 ratio TBI 0 ratio History CAD. Hypertension. PAD. Electronically signed at 09/10/2018 17:30:46 by: Ben Hahn MD, VI Echocardiogram Complete Result Date: 10/08/2018 REPORT Patient: SHERRY Carmona Rec#: [id number] (Age): 1940(78y) Height: 188(cm)/73(in) Study Date: 10/08/2018 Weight: 99(kg)/218(lbs) [facility] BSA: [id number] Type: Inpatient Loc: [facility] Echo Lab Sex: M Reading: Emmanuel Connor MD F Referring: AARON CHOI DANIEL Fine Patcher: Geovani Matson RD, T History: Hyperlipidemia Hypertension. Valvular disease. Diagnosis: ICD-10-PCS Encounter for preprocedural cardiovascular examination (Z01.810) Cardiac Complications, not classified (997.1) CPT Code(s): ECHO COMPLETE W/ DOPPLER (68937) HCPCS Code C8923 Echo Full w/ contrast. [...] PV p eak gradient 3.23 mmHg none CO end-diastolic Vmax 1.41 m/sec none PA end- diastolic pressure 12.95 mmHg none PV acceleration time 77 msec none Electronically Signed at 10/08/2018 17:26:05 by: NicholasJ. Geeta MD [facility] Xr Ankle Left 3+ Views (standard) Result [...] of the distal fibula. Extensive vascular calcifications. [employer] Workstation ID: [id number] Xr Foot Left 2 [...] articulations. Surgical drain present. VK/mll Workstation ID: [id number] Xr Foot Left 3+ Views (standard) Result [...] EST Associated Order(s): IP CONSULT TO [facility]PITAL[facility] CONSULTATION NOTE Patient Name: Tristin Powell : 1940 MR #: [id number] Admit Date: 2060905 Physicians: Flash Lovelace MD (Family); Flynn Mann, * (Referring) Tristin Powell is a 78 y.o. male patient of Flash Lovelace MD with history of PAD, CAD and HTN that presented to [facility] with need for left foot partial amputation. [...] Date: TBD Outpatient Testing: none Chief Complaint: [facility] consulted by Flynn Mann DPM for medical management History of Present Illness: This is a 78 y/o male with past medical history of PAD, CAD and HTN that presented to [facility] with need for left foot partial amputation. [...] COMPLETION ANGIOGRAM; Surgeon: Mohsen Sarabia MD; Location: [facility]; Service: Cardiovascular CARDIAC CATHETERIZATION Left 09/05/2018 Procedure: Angio Lower Extremity; Surgeon: Ben Hahn MD; Location: [facility]; Service: Cardiovascular CARDIAC SURGERY STENT PLACEMENT Family [...] Information Primary Caregiver: Self Accompanied by/Relationship: none Catholic/Cultural Factors: none Legal Documentation Advance Directives: (none) Resuscitation Status: Resuscitate Resources Financial Resources: Other (Comment)([employer] Medicare insurance confirmed) Community Resources: Other (Comment)(PCP Dr. Lovelace [phone]) Discharge Plan Shared UM/CC and RN Source of Information: Patient Contact Phone Number: emergency contact Amina Zaidi p:[phone] Living Arrangements: Alone Support Systems: Family members Functional Status: Independent Type of Residence: Private residence(1 floor plan) Prior to Admission Home Care Services: Yes Type of Current Home Care Services: Home health care Current Agency Name: [facility] Current Home Equipment: Walker, Wheeled walker, Toilet seat pyridine recovery operator, Tub/Shower chair Insurance Coverage for Prescriptions: [...] services for discharge. [facility] kristy Jeanette ph# [phone] / fx# [phone] Called agency and left a message requesting a return phone call to [phone] to confirm services. Faxed HH bundle to [...] Associated Order(s): ECG 12-LEAD ED PROVIDER NOTE [facility] EMERGENCY DEPARTMENT NAME: Tristin Powell AGE: 78 y.o. : 1940 VISIT DATE: 09/04/2018 CSN: [id number] PCP: Flash Lovelace MD Chief Complaint Patient presents with Blood Clot HPI Patient transferred from [facility] for left leg peripheral arterial disease and [...] the family requested to be transferred to [facility] for a second opinion. Accepted by the [...] ST segments normal QRS axis: normal normal CO interval normal QRS interval QT Interval: 474 [...] Referral note: Call from Dann Chairez MD [phone] Contact Role: Referring Provider Entered By: VAN [...] to a larger hospital and are requesting [facility]. Call to VAN Reynolds [phone] Contact Role: Nurse Entered By: VAN Bailey [...] 2:42 PM EST SHERRY TRISTIN Bazan CONCHIS [id number] 1940 DATE 09/07/2018 OPERATIVE REPORT SURGEON MOHSEN SARABIA MD VP ANALYSIS BEN JIANG MD PREOPERATIVE DIAGNOSIS Subacute limb ischemia of the left lower extremity. POSTOPERATIVE DIAGNOSIS Subacute limb ischemia of the left lower extremity. PROCEDURE PERFORMED Left femoral to peroneal bypass using contralateral reverse greater saphenous vein. VP ANALYSIS There was no qualified resident available to [...] cc. MOHSEN SARABIA MD D 09/09/2018 10:46 [id number] T 09/09/2018 14:36 JPW/MODL * Brief Op Note - Mohsen Sarabia MD - 09/08/2018 1:11 AM EST Brief Post Operative Note Patient Name: Tristin Powell : 1940 (78 y.o.) Date of Service: 09/04/2018 - 09/08/2018 CSN: [id number] Procedure(s): BYPASS PERONEAL FEMORAL, RIGHT SAPHENOUS VEIN HARVEST, COMPLETION ANGIOGRAM Pre-Operative Diagnoses: * acute left lower extremity ischemia Post-Operative Diagnoses: * Same as Pre-Op Diagnosis Surgeon(s) and Role: * Mohsen Sarabia MD - Primary * Ben Jiang MD - Assisting Anesthesiologist: Natalie Vieira MD; Andrew Topete MD Assembly Machine Set Up Mechanic: Megan Arguelles RN; Odessa Cuellar RN Assembly Machine Set Up Mechanic Relief: Sakshi Silvestre RN; Ben Calvillo RN; Niseha Levin RN Scrub Person: ST Ricki Scrub [...] Implant Name Type Inv. Item Serial No. Special Assemblies Supervisor Lot No. LRB No. Used Action HEMOSTAT 2 X 4IN SURGICEL FIBRILLAR - [id number] HEMOSTAT 2 X 4IN SURGICEL FIBRILLAR ETHICON [id number] Left 1 Implanted Drain(s): Urethral Catheter Non-latex;Straight-tip [...] Assessment & Plan Note - Maranda Meléndez, [facility] - 09/06/2018 4:26 PM EST Associated Problem(s): Pain of left lower extremity -Presented to [facility] 09/04/2018 as a transfer from [place] for second opinion regarding left lower extremity [...] in pain -Reports pain is uncontrolled with RN PROCEDURE Dilaudid pump, and pain does not decrease [...] CTS consult for tibial bypass Please call [phone] for questions (available 20/03) * Quick Note [...] artery disease involving coronary bypass graft of [place] heart without angina pectoris Patient with remote [...] bypass. Pt s/p LLE critical limb ischemia [place] class 4 rest pain with distal discoloration to his toes. Pt is s/p L pop angioplasty with stent placement 08/09 at [facility] in [place], [place]. Ptwas placed on Xarelto and ASA. [...] 10/12/2018 6:58 PM EST Reviewed AVS and [facility] opioid handout with patient and answered all questions. Provide paperwork packet including paper prescriptions for percocet, lovenox and doxcycline. Helped patient dress and packall belongings. Wheeled patient and all belongings to front entrance [facility] to daughter's vehicle. [facility] [place] [facility] * Gary Nelson - Kristi Grossman RN - 10/12/2018 6:33 PM EST Called report to Chelsea Salinas RN at the [facility] [place]. * Plan of Care - Kristi Grossman RN - 10/12/2018 5:50 PM EST Patient to follow-up GI outpatient. * Plan of Care - Kristi Grossman RN - 10/12/2018 9:39 AM EST Patients pain well controlled on percocet. Patient having bowel movements and voiding spontaneously. * Quick Note - Daiana Treviño CNP - 10/10/2018 2:35 PM EST [...] follow with Dr. Mann as out-patient at [facility] at [phone] next 10-18-18. Flynn Mann DPM, FACFAS Electronically signed by the above physician 10/09/18 * Plan of Care - Taco Stock RN - 10/08/2018 6:43 PM EST POC went over and updated, will continue to monitor. * Op Note - Flynn Mann DPM - 10/08/2018 9:20 AM EST TRISTIN POWELL [id number] 1940 DATE 10/08/2018 OPERATIVE REPORT SURGEON FLYNN MANN DPM VP ANALYSIS OFE WOOD DPM, RESIDENT ANESTHESIOLOGIST MACHELLE SARABIA MD PREOPERATIVE DIAGNOSIS Left foot gangrene. POSTOPERATIVE DIAGNOSIS Left foot gangrene. PROCEDURES 1. Left midfoot amputation at [facility] level 2. Left Tendo-Achilles lengthening 3. [...] RESIDENT FLYNN MANN DPM D 10/08/2018 08:53 [id number] T 10/08/2018 09:15 /MODL * Brief Op Note - Ofe Wood DPM - 10/08/2018 8:37 AM EST Brief Post Operative Note Patient Name: Tristin Powell : 1940 (78 y.o.) Date of Service: 10/08/2018 CSN: [id number] Procedure(s): 1. TENDO ACHILLES LENGTHENING, LEFT 2. LEFT MIDFOOT AMPUTATION Pre-Operative Diagnoses: * LEFT FOOT GANGRENE Post-Operative Diagnoses: * SAME Surgeon(s) and Role: * Flynn Mann DPM - Primary * Ofe Wood DPM - Resident - Assisting Anesthesiologist: Machelle Sarabia MD HOSPITALIST MEDICAL DIRECTOR: Nikia Mcdermott CRNA Assembly Machine Set Up Mechanic: Sussy Hoskins RN Relief Scrub: Angela Qureshi [...] MD Primary Care Provider Active Haven Malcolm [facility] ProviderActiveTeam MemberRelationshipSpecialty Start DateEnd Date Flash Lovelace MD [address] [place] [address] [facility]CP - [facility] Oegzstxn30/4/18Team MemberRelationshipSpecialtyStart DateEnd Date Flash Lovelace MD [address] [place] [address] PCP - Generalmily Aiiadroq26/4/18Team MemberRelationshipSpecialtyStart DateEnd Date Flash Lovelace MD [address] [place] [address] PCP - GeneralFamily Medicine09/04/18Team MemberRelationshipSpecialtyStart DateEnd Date Flash Lovelace MD [address] [place] [address] PCP - GeneralFamily Djboznzl26/4/18Team MemberRelationshipSpecialtyStart DateEnd Date Flash Lovelace MD [address] [place] [address] PCP - GeneralFamily Medicine09/04/18Team MemberRelationshipSpecialtyStart DateEnd Date Flash Lovelace MD [address] [place] [address] PCP - GeneralFamily Medicine09/04/18Team MemberRelationshipSpecialtyStart DateEnd Date Flash Lovelace MD [address] [place] [address] PCP - Generalmily Medicine09/04/18Team MemberRelationshipSpecialtyStart DateEnd Date Flash Lovelace MD [address] [place] [address] PCP - GeneralFamily Medicine09/04/18Team MemberRelationshipSpecialtyStart DateEnd Date Flash Lovelace MD [address] [place] [address] PCP - GeneralFamily Medicine09/04/18 Team Status: Inactive Member Role Status Dates Flash Lovelace MD Primary Care Provider Active Cristian Beaver [facility] ProviderActiveTeam MemberRelationshipSpecialty Start DateEnd Date Flash Lovelace MD [address] [place] [address] PCP - GeneralFamily Medicine09/04/18Team MemberRelationshipSpecialtyStart DateEnd Date Flash Lovelace MD [address] [place] [address] PCP - GeneralFamily Pbiamvvp75/4/18Team MemberRelationshipSpecialtyStart DateEnd Date Flash Lovelace MD [address] [place] [address] PCP - GeneralFamily Msgurdcj45/4/18Team MemberRelationshipSpecialtyStart DateEnd Date Flash Lovelace MD [address] [place] [address] PCP - GeneralFamily Medicine09/04/18Team MemberRelationshipSpecialtyStart DateEnd Date Flash Lovelace MD [address] [place] [address] PCP - GeneralFamily Medicine09/04/18Team MemberRelationshipSpecialtyStart DateEnd Date Flash Lovelace MD [address] [place] [address] PCP - GeneralFamily Medicine09/04/18 System, Provider Not In Cardiologist11/09/22Team MemberRelationshipSpecialtyStart DateEnd Date Flash Lovelace MD [address] [place] [address] PCP - GeneralFamily Medicine09/04/18 System, Provider Not In Cardiologist11/09/22Team MemberRelationshipSpecialtyStart DateEnd Date Flash Lovelace MD [address] [place] [address] PCP - [facility]ally Medicine09/04/18 System, Provider Not In Cardiologist11/09/22Team MemberRelationshipSpecialtyStart DateEnd Date Flash Lovelace MD [address] [place] [address] PCP - [facility] Agfwhtqk20/4/18Team MemberRelationshipSpecialtyStart DateEnd Date Flash Lovelace MD [address] [place] [address] PCP - [facility]07/31/18 Team Status: [...] MemberRelationshipSpecialtyStart DateEnd Date Flash Lovelace MD [address] [place] [address] PCP - [facility]08/28/17 Flash Lovelace MD [address] [place] [address] PCP - GeneralFamily Medicine03/09/23Team MemberRelationshipSpecialtyStart DateEnd Date Flash Lovelace MD [address] [place] [address] PCP - Hum[employer]1 Flash Lovelace MD [address] [place] [address] PCP - GeneralFamily Medicine03/09/23Monday, Mary, FINANCE CLERK [address] [place] [address] Licensed Practical NurseFamily Ckxksnae51/25/24Team MemberRelationshipSpecialty Start DateEnd Date Flash Lovelace MD [address] [place] [address] PCP - Humana1 Flash Lovelace MD [address] [place] [address] PCP - GeneralFamily Medicine03/09/23Monday, Mary, FINANCE CLERK [address] [place] [address] Licensed Practical NurseFamily Raflhzao55/25/24Team MemberRelationshipSpecialty Start DateEnd Date Flash Lovelace MD [address] [place] [address] PCP - GeneralFamily Medicine09/04/18 System, Provider Not In Cardiologist11/09/22Team MemberRelationshipSpecialtyStart DateEnd Date Flash Lovelace MD [address] [place] [address] PCP - [employer]1/09/14 Flash Lovelace MD [address] [place] [address] PCP - GeneralFamily Medicine03/09/23Team MemberRelationshipSpecialtyStart DateEnd Date Flash Lovelace MD [address] [place] [address] PCP - [employer]1/09/14 Flash Lovelace MD [address] [place] [address] PCP - Generalmily Medicine03/09/23Team MemberRelationshipSpecialtyStart DateEnd Date Flash Lovelace MD [address] [place] [address] PCP - Humana1 Flash Lovelace MD [address] [place] [address] PCP - GeneralFamily Medicine03/09/23Monday, Mary, FINANCE CLERK [address] [place] [address] Licensed Practical Nursemily Kpfephjs46/25/24Team MemberRelationshipSpecialty Start DateEnd Date Flash Lovelace MD [address] [place] [address] PCP - Loclthk72Team MemberRelationshipSpecialtyStart DateEnd Date Flash Lovelace MD [address] [place] [address] PCP - Yjlzhdu20/Team MemberRelationshipSpecialtyStart DateEnd Flash Lovelace MD [address] [place] [address] PCP - [employer]1/09/14 Flash Lovelace MD [address] [place] [address] PCP - GeneralFamily Medicine03/09/23Monday, ISABELLA Hernandez [address] [place] [address] Licensed Practical NurseNorth[facility]06/21/24Team MemberRelationshipSpecialty Start DateEnd Flash Lovelace MD [address] [place] [address] PCP - Humana1 Flash Lovelace MD [address] [place] [address] PCP - [facility] Medicine03/09/23Team MemberRelationshipSpecialtyStart DateEnd Date Flash Lovelace MD [address] [place] [address] PCP - Humana1 Flash Lovelace MD [address] [place] [address] PCP - [facility] Medicine03/09/23Team MemberRelationshipSpecialtyStart DateEnd Date Flash Lovelace MD [address] [place] [address] PCP - Humana1 Flash Lovelace MD [address] [place] [address] PCP - GeneralFamily Medicine03/09/23Team MemberRelationshipSpecialtyStart DateEnd Date Flash Lovelace MD [address] [place] [address], [place] [address] PCP - GeneralFamily Medicine09/04/18 System, Provider Not In Cardiologist11/09/22Team MemberRelationshipSpecialtyStart DateEnd Date Flash Lovelace MD [address] [place] [address] PCP - Humana1 Flash Lovelace MD [address] [place] [address] PCP - GeneralFamily Medicine03/09/23Monday, ISABELLA Hernandez [address] [place] [address] Licensed Practical NurseFamily Ayxvlznd31/25/24Team MemberRelationshipSpecialty Start DateEnd Date Flash Lovelace MD [address] [place] [address] PCP - Humana1 Flash Lovelace MD [address] [place] [address] PCP - GeneralFamily Medicine03/09/23 Lorraine Morgan, RN Licensed Practical NurseFamily Medicine10/04/24Team MemberRelationshipSpecialty Start DateEnd Date Flash Lovelace MD [address] [place] [address] PCP - Humana1/118 Flsah Lovelace MD [address] [place] [address] PCP - GeneralFamily Medicine03/09/23 SaabElaine, [facility] 11/15/24Team MemberRelationshipSpecialtyStart DateEnd Date Flash Lovelace MD [address] [place] [address] PCP - Hum[employer]1/09/14 Flash Lovelace MD [address] [place] [address] PCP - GeneralP[facility] Hospitally Medicine03/09/23 SaabElaine, [facility] 11/15/24Team MemberRelationshipSpecialtyStart DateEnd Date Flash Lovelace MD [address] [place] [address] PCP - Humana1/18 Flash Lovelace MD [address] [place] [address] PCP - Generalmily Medicine03/09/23 SaabElaineFORMERLY [facility] 11/15/24Team MemberRelationshipSpecialtyStart DateEnd Date Flash Lovelace MD [address] [place] [address] PCP - Humana1/18 Flash Lovelace MD [address] [place] [address] PCP - Generalmily Medicine03/09/23 SaabElaine [facility] 11/15/24Team MemberRelationshipSpecialtyStart DateEnd Date Flash Lovelace MD [address] [facility] [address] [place] [address] PCP - Human/09/14 Flash Lovelace MD [address] [facility] [address] [place] [address] PCP - Generalmily Medicine03/09/23 Elaine Saab [facility] 11/15/24Team MemberRelationshipSpecialtyStart DateEnd Date Flash Lovelace MD [address] [facility] [address] [place] [address] PCP - [place] [address] Flash Lovelace MD [address] [facility] [address] [place] [address] PCP - [facility] Medicine03/09/23 Elaine Saab [facility] [address] [facility] [address] [place] [address] 11/15/24 Team Status: Inactive Member Role Status [...] 2025Team MemberRelationshipSpecialtyStart DateEnd Date Flash Lovelace MD [address] [place] [address] PCP - GeneralFamily Medicine09/04/18 System, Provider Not In Cardiologist11/09/22Team MemberRelationshipSpecialtyStart DateEnd Date Flash Lovelace MD [address] [place] [address] PCP - GeneralFamily Medicine09/04/18 System, Provider Not In Cardiologist11/09/22Team MemberRelationshipSpecialtyStart DateEnd Date Flash Lovelace MD [address] [place] [address] PCP - GeneralFamily Medicine09/04/18 System, Provider Not In Cardiologist11/09/22Team MemberRelationshipSpecialtyStart DateEnd Date Flash Lovelace MD [address] [place] [address] PCP - GeneralFamily Medicine09/04/18 System, Provider Not In Cardiologist11/09/22Team MemberRelationshipSpecialtyStart DateEnd Date Flash Lovelace MD [address] [place] [address] PCP - Human08/28/17 Flash Lovelace MD [address] [place] [address] PCP - GeneralFamily Medicine03/09/23 Elaine Saab LPN [address] [place] [address] 11/15/24Team MemberRelationshipSpecialtyStart DateEnd Date Flash Lovelace MD [address] [place] [address] PCP - GeneralFamily Medicine09/04/18 System, Provider Not In Cardiologist11/09/22Team MemberRelationshipSpecialtyStart DateEnd Date Flash Lovelace MD [address] [place] [address] PCP - Humana1 Flash Lovelace MD [address] [place] [address] PCP - GeneralFamily Medicine03/09/23 Elaine Saab LPN [address] [place] [address] 11/15/24Team MemberRelationshipSpecialtyStart DateEnd Date Flash Lovelace MD [address] [place] [address] PCP - Humana1 Flash Lovelace MD [address] [place] [address] PCP - GeneralFamily Medicine03/09/23 Elaine Saab LPN [address] [place] [address] 11/15/24Team MemberRelationshipSpecialtyStart DateEnd Date Flash Lovelace MD [address] [place] [address] PCP - Humana1 Flash Lovelace MD [address] [place] [address] PCP - GeneralFamily Medicine03/09/23 Elaine Saab LPN [address] [place] [address] 11/15/24Team MemberRelationshipSpecialtyStart DateEnd Date Flash Lovelace MD [address] [place] [address] PCP - Humana1/09/14 Flash Lovelace MD [address] [place] [address] PCP - Generalmily Medicine03/09/23 Elaine Saab LPN [address] [place] [address] 11/15/24Team MemberRelationshipSpecialtyStart DateEnd Date Flash Lovelace MD [address] [place] [address] PCP - Humana1 Flash Lovelace MD [address] [place] [address] PCP - Generalmily Medicine03/09/23 Elaine Saab LPN [address] [place] [address] 11/15/24Team MemberRelationshipSpecialtyStart DateEnd Date Flash Lovelace MD [address] [place] [address] PCP - Humana1/18 Flash Lovelace MD [address] [place] [address] PCP - Generalmily Medicine03/09/23 Saab, Elaine, FINANCE CLERK [address] [place] [address] 11/15/24Team MemberRelationshipSpecialtyStart DateEnd Date Flash Lovelace MD [address] [place] [address] PCP - GeneralFamily Medicine09/04/18 System, Provider Not In Cardiologist11/09/22Team MemberRelationshipSpecialtyStart DateEnd Date Flash Lovelace MD [address] [place] [address] PCP - Human08/28/17 Flash Lovelace MD [address] [place] [address] PCP - GeneralFamily Medicine03/09/23 Elaine Saab LPN [address] [place] [address] 11/15/24Team MemberRelationshipSpecialtyStart DateEnd Date Flash Lovelace MD [address] [place] [address] PCP - Humana1 Flash Lovelace MD [address] [place] [address] PCP - GeneralFamily Medicine03/09/23 Elaine Saab LPN [address] [place] [address] 11/15/24Team MemberRelationshipSpecialtyStart DateEnd Date Flash Lovelace MD [address] [place] [address] PCP - Human08/28/17 Flash Lovelace MD [address] [facility] [address] [place] [address] PCP - [facility] Medicine03/09/23 Elaine Saab, FINANCE CLERK [address] [facility] [address] [place] [address] 11/15/24 Team Status: Active Member Role Status [...] MemberRelationshipSpecialtyStart DateEnd Date Flash Lovelace MD [address] [place] [address] PCP - Generalmily Nrcjpbmx68/4/18Team MemberRelationshipSpecialtyStart DateEnd Date Flash Lovelace MD [address] [place] [address] [facility]CP - [facility] Jgwqngol98/4/18Team MemberRelationshipSpecialtyStart DateEnd Date Flash Lovelace MD [address] [facility] [address] [place] [address] PCP - Humana1 Flash Lovelace MD [address] [place] [address] PCP - Generalmily Medicine03/09/23 Elaine Saab LPN [address] [place] [address] 11/15/24Team MemberRelationshipSpecialtyStart DateEnd Date Flash Lovelace MD [address] [place] [address] PCP - Humana1 Flash Lovelace MD [address] [place] [address] PCP - GeneralFamily Medicine03/09/23 Elaine Saab LPN [address] [place] [address] 11/15/24Team MemberRelationshipSpecialtyStart DateEnd Date Flash Lovelace MD [address] [place] [address] PCP - Humana1/09/14 Flash Lovelace MD [address] [place] [address] PCP - GeneralFamily Medicine03/09/23 Elaine Saab LPN [address] [place] [address] 11/15/24Team MemberRelationshipSpecialtyStart DateEnd Date Flash Lovelace MD [address] [place] [address] PCP - Humana1 Flash Lovelace MD [address] [place] [address] PCP - GeneralFamily Medicine03/09/23 Elaine Saab LPN [address] [place] [address] 11/15/24Team MemberRelationshipSpecialtyStart DateEnd Date Flash Lovelace MD [address] [place] [address] PCP - GeneralFamily Medicine09/04/18 System, Provider Not In Cardiologist11/09/22Team MemberRelationshipSpecialtyStart DateEnd Date Flash Lovelace MD [address] [place] [address] PCP - Humana1//18 Flash Lovelace MD [address] [facility] [address] [place] [address] PCP - [facility] Medicine03/09/23 Elaine Saab ISABELLA [address] [facility] [address] [place] [address] 11/15/24 Scheduled Active and Recently Administ ered [...] * 0600 (Not Given - Provider: Maude Vallejo, RN - Reason: Order parameters not met) * 1340 (Given - Provider: Violetta Stuart, RN) * 2222 (Given - Provider: Kiesha Mosquera, VAN) * 0600 (Due) * 1400 (Canceled Entry - Provider: Rafaela Negorn, VAN) * 2233 (Given - Provider: Kiesha [...] For 3 doses, Anginal pain, may repeat [id number] x3, then notify physician. DO NOT CRUSH [...] mL, Intravenous, Once in imaging, contrast, Per logistics management specialist (Radiology) for line patency check prior to contrast administration, Starting on Mon01/19/22 at 0048, For 1 dose sodium chloride (PF) (NS) 0.9 % contrast line flush 80 mL(Linked Group 4) 80 mL, Intravenous, Once in imaging, contrast, Per logistics management specialist (Radiology), Starting on Mon01/19/22 at 0048, For [...] mL, Intravenous, Once in imaging, contrast, Per logistics management specialist (Radiology) for line patency check prior to contrast administration, Starting on Mon01/19/22 at 0048, For 1 dose And sodium chloride (PF) (NS) 0.9 % contrast line flush 80 mLJump to med 80 mL, Intravenous, Once in imaging, contrast, Per logistics management specialist (Radiology), Starting on Mon01/19/22 at 0048, For [...] mL, Intravenous, Once in imaging, contrast, Per logistics management specialist (Radiology) for line patency check prior to contrast administration, Starting on Mon04/14/22 at 2110, For 1 dose * 2131 (Given - Provider: Beena Yates, TECHNOLOGIST) sodium chloride (PF) (NS) 0.9 % contrast line flush 80 mL (COMPLETED) 80 mL, Intravenous, Once in imaging, contrast, Per logistics management specialist (Radiology), Starting on Mon04/14/22 at 2110, For [...] 0345 (Not Given - Provider: Gisella Pyle MEETING FACILITATOR - Reason: Patient/family refused - Comment: Patient doesn't want his treatment throughout the night) * 0800 (Not Given - Provider: Sussy Rocha MEETING FACILITATOR - Reason: Patient not available) * 1515 (Given - Provider: Andrew Milan, LILIAN) * 2012 (Given - Provider: Claire Ireland MEETING FACILITATOR) * 0200 (Not Given - Provider: Claire Ireland MEETING FACILITATOR - Reason: Patient/family refused) * 0828 (Given - Provider: Sussy Rocha MEETING FACILITATOR) * 1400 (Given - Provider: Sussy Rocha MEETING FACILITATOR) * 2024 (Given - Provider: Claire Ireland RRT) * 0200 (Not Given - Provider: Claire Ireland MEETING FACILITATOR - Reason: Patient/family refused) * 0800 (Not Given - Provider: Jesse Ferraro MEETING FACILITATOR - Reason: Other - Comment: patient wanted [...] * 0815 (Given - Provider: Kaylie Denny, AVN) * 0831 (Given - Provider: Katie Pino, [...] 8 HOURS NON-STANDARD, First dose on Mon05/09/25 [id number], Until Discontinued, Infuse STAT doses over 30 [...] 8 HOURS NON-STANDARD, First dose on Mon05/09/25 [id number], Until Discontinued, Infuse STAT doses over 30 [...] * 1319 (Not Given - Provider: Jessie Walotn RCP - Reason: Patient not available - [...] Gonzalez RN) * 2116 (Given - Provider: Tbaby Thibodeaux, VAN) Sodium chloride 0.9% IV solution [...] 6 Fr 11 cm Right femoral Label [id number] FOR RECORDS PERTAINING TO PATIENTS WHO ARE [...] BE BASED ON THE PRIMARY CLINICAL RECORDS. [employer] [facility]. provides no warranty or guarantee of the accuracy or completeness of information in this document.
== END 2025-06-18 12:54 | disposition home or self-care (01) ==
LOC: LAB 12:53
PROVIDERS: PCP Family Medicine; Visit Provider Podiatrist Foot & Ankle Surgery
DX: L97.518 Non-pressure chronic ulcer of other part of right foot with other specified severity (principal)
CPT/HCPCS: 87070; 87075; 87077; 87102; 87116; 87186; 87205; 87206

== ENCOUNTER 2025-07-09 10:43 | Outpatient (OUT) | payer MEDICARE, SELFPAY ==
--- OUTSIDE RECORDS SUMMARY | 2025-07-09 10:48 | XMS_ITS | Clinical Summary ---
Author Organization [facility] Address [address] [place] [address] Care Team Providers Care Refining Equipment Operator Name Role Phone Nikko Bird MD Primary Care Provider [phone] Allergies Active AllergyReactionsCriticalityNoted VwxfNadelwzlBfrglutdfjr23/28/2019 Elevated blood pressure, GI intolerance/ nausea/vomiting UwwvozrkqIqgikslwoqiUipr99/30/2017 Medications MedicationSigDispense QuantityRefillsLast FilledStart DateEnd DateStatus albuterol [...] mg SL tablet Indications:Coronary artery disease involving choctaw coronary artery of choctaw heart without angina pectorisPlace 1 tablet (0.4 [...] tablet 5Active Active Problems ProblemNoted DateDiagnosed DateBronchiectasis, dnaswkfexwvin19/10/2025Acquired absence of left leg below knee07/22/2024Other complications of amputation stump 07/22/2024oronary artery qiioayq7806/11/2024NSTEMI (non-ST elevated myocardial infarction)05/28/2024Hx of CABG05/28/2024Secondary hypercoagulable state 4Pulmonary hypertension, brwlrqojbks01/30/2024Acute cystitis without nyahxnlvh53/25/2024 Overview (04/22/2024): Last Assessment & Plan: Add Probiotic to help replenish the good bacteria that are destroyed by the Antibiotics Florastor Florajen Align or try Activia in Yogurt Probiotics reduce the risk of antibiotic induced diarrhea Other qqpxhnnxlsotd78/25/2024 Overview (04/22/2024): Last Assessment & Plan: Has blood thinner Flu vaccine need4Routine general medical examination at health care rdbvxcjy28 Overview (10/09/2023): Last Assessment & Plan: Colonoscopy [...] US Acute exacerbation of chronic obstructive pulmonary Abnormal radiographic ckuexjsvdok62cute on chronic heart failure with preserved ejection bvjwfoku51rthritis04/09/2023 10/09/2023sthmatic uzliqwhshz66arotid artery stenosis Overview (10/09/2023): Last Assessment & Plan: Getting Carotid dopplers Hwsorwrv05hronic kidney disease due to ndapnnnvxspv47/13/2023 10/09/20239523Oogsuzyhpumf18Elevated erythrocyte sedimentation rateLeft sciatic nerve painNeuropathy Other chronic painaresthesia of skin aroxysmal atrial kdqwtugazunz83hantom limb painolymyalgia vbpnjhqrzy82rimary osteoarthritis of right hip/07/2024Seasonal allergic rhinitis Sinusitis [...] any sugar elevations. Stage 3a chronic kidney srwvbzz26hronic diastolic (congestive) heart pnsdvuc3404/09/20235956Bgsepigy80/25/202308/03/2023Lumbosacral spondylosis without ycisjlupyn15Mitral valve regurgitation 11/21/2022Inguinal pain11/21/20223832Xfapxut77/27/2023osterior tibial tendinitis of right leg11/07/2022Hematoma of arm, left, initial tbpzhqmow59/10/2023 Overview (11/21/2022): Last Assessment & Plan: 82 [...] pneumonia of left lower lobe of lung11/03/2022ulmonary gzbkuw4101/21/20223238Ekfzcwqilk82/24/2022Thoracic aortic aneurysm without rupture 01/12/2022oronary artery disease involving choctaw coronary artery of choctaw heart without angina /18/2021/P total hip lqcueswamelw16/18/2021S/P transmetatarsal amputation of foot, left1Aortic valve regurgitation 1Peripheral arterial occlusive bqugdws3901/09/2019Gangrene of left foot 10/04/2018Coronary artery disease involving coronary bypass graft of choctaw heart without angina vnsewdjw44/09/2019 Overview (11/21/2022): Last Assessment & Plan: Patient with remote coronary artery bypass grafting to 3 vessels. Patient denies chest pain at thistime. Slsfsnfzvbqmnlvpnp03/09/2019 Overview (11/21/2022): Last Assessment & Plan: Patient [...] a goal BMI <30. Critical lower limb decyirrh64/08/2019 Overview (11/21/2022): Last Assessment & Plan: Pt s/p LLE angiogram with Dr Hahn who feels that the pt has no further endovascular options. He has consulted Dr. Millan for a possible tibial bypass. Pt s/p LLE critical limb ischemia [place] class 4 rest pain with distal discoloration to his toes. Pt is s/p L pop angioplasty with stent placement 08/09 at [facility] in [place], [place]. Ptwas placed on Xarelto and ASA. [...] medication. ?? Will sign off Peripheral arterial tppizgb0708/10/2018 Overview (11/21/2022): Last Assessment & Plan: S/P [...] was known to be reduced (0.5) Pure oyuofmtvtrfwoftmqokw91/14/2018 Overview (11/21/2022): Last Assessment & Plan: Resume home medications Follow up after discharged with PCP Obesity (BMI 30.0-34.9)08/10/2018 Overview (11/21/2022): Last Assessment & Plan: Diet and lifestyle modifications strongly encouraged Follow up after discharged with PCP for further treatment options Intermittent ekuvuuycrmzs53/12/2018 Overview (11/21/2022): Added automatically from request for surgery [id number] Last Assessment & Plan: Heparin drip initiated, pharmacy to manage per protocol ASA and Plavix started Cardiovascular surgeon consulted PT/OT evaluation and treatment Monitor labs, VS and telemetry as ordered Pain management Last Assessment & Plan: S/P Left Lower Extremity Angiogram with ballooning and stent 08/09/2018 Post op orders per surgeon DVT/GI prophylaxis Monitor labs, VS and telemetry as ordered Pain management Xzqxbpspo25/04/4681Znlhfivev21/18/2014bdominal pain07/11/2014Hypertensive rxptetnz25/22/2014 Overview (11/21/2022): Last Assessment & Plan: Resume home medications as ordered Follow up after discharged with PCP Labetalol PRN for SBP> 160 Monitor VS as ordered Last Assessment & Plan: Patient with history of hypertension. Blood pressure at this time 132/62. Plan: ?? Continue medications as prescribed. Disorder of lipid ygkdsvprqh29/27/6452Qkbhahaya07/14/2014Chest pain08/30/2013 Coronary zzezdugvkqadpts98/03/2014Mixed cgefpapbgnpbkj39/03/2014Dyspnea 08/30/2013Preinfarction hsbjiica47/03/2014vascular necrosis of bone of hip 09/04/2011 Overview (11/21/2022): Right hip Herpes xusjty7709/04/2011Pain of left lower euwvoppiy63/08/2012 Overview (11/21/2022): Last Assessment & Plan: -Presented to [facility] 09/04/2018 as a transfer from [place] for second opinion regarding left lower extremity [...] in pain -Reports pain is uncontrolled with WEATHERIZATION INSTALLER Dilaudid pump, and pain does not decrease [...] Fernandez RN -Please call with questions Prostate fgzdin5609/04/2011Chronic ischemic heart nvktyiw93 Impotence of organic hazkja544Benign essential hypertension 07/04/2008 Overview (04/22/2024): Last Assessment [...] Free06/21/2021,06/02/2020,06/06/2018,05/18/2015Influenza, High-dose Seasonal, Quadrivalent, Preservative Free05/31/2022Influenza, injectable, omjzpcojfuyh92/25/2017Influenza, trivalent, effoulzphq72/22/2019Moderna SARS-CoV-2 Fhsgyrizkia70/13/2022,10/28/2020,1Pneumococcal Conjugate PCV 131,05/18/2015Pneumococcal Polysaccharide LZH504910/08/2020Tdap09/30/2019 Family History Medical HistoryRelationNameCommentsCoronary artery diseaseOtherHyperlipidemia OtherHypertensionOtherRelationNameStatusCommentsOther Social History Tobacco UseTypesPacks/DayYears UsedDateSmoking Tobacco: NeverSmokeless Tobacco: Never Tobacco Cessation:Counseling Given: Not Answered Alcohol UseStandard Drinks/WeekCommentsNot Currently0 (1 standard drink = 0.6 oz pure alcohol)MA Safety & EnvironmentAnswerDate RecordedFear of Current or Ex-PartnerNot on file10/19/2023Emotionally AbusedNot on file10/19/2023hysically AbusedNot on file10/19/2023Sexually AbusedNot on file10/19/2023hysically or Sexually AbusedNot on file10/19/2023Sex and Gender InformationValueDate Recorded Sex Assigned at BirthNot on fileLegal NyzVmwn0302/23/2022 9:56 PM EDTGender IdentityNot on fileSexual OrientationNot on file Last Filed Vital Signs Vital SignReadingTime TakenCommentsBlood Xxwlfaaj040/7604 1:22 PM EDT Vmoce2353 1:22 PM EDTTemperature--Respiratory Eobt188009/09/2023 12:15 PM ESTOxygen Utfwijqgvh02%12/18/2024 1:22 PM EDTInhaled Oxygen Concentration-- Fkbmiy819 kg (248 lb)12/18/2024 1:22 PM ACFDxmrgf408 cm (6' 2 )12/18/2024 1:22 PM EDTBody Mass Index31.8404 1:22 PM EDT Plan of Treatment Health MaintenanceDue DateLast DoneCommentsMedicare Annual Wellness (AWV) 1939Depression Hxmwdjfjk45/09/1952Zoster Vaccines (1 of 2)1989Fall Risk Zrnfbyhur48/09/2004COVID-19 Vaccine ( season)2025 09/09/2021, 09/09/2021, 10/28/2020, Additional history existsInfluenza Vaccine (#1)512/, 06/06/2023, 05/31/2022, Additional history existsAdult Pauurgi42Pneumococcal Vaccine: 50+ QkjalWbptnjinx92/11/2021, 05/28/2020, 05/18/2015HIB VaccinesAged OutNo longer eligible based [...] Team MemberRelationshipSpecialtyStart DateEnd Date Nikko Bird MD [address] [place] [address] PCP - General11/21/22
--- OUTSIDE RECORDS SUMMARY | 2025-07-09 10:48 | XMS_ITS | Patient Health Record ---
Author Organization [facility] Address [address] [place] [address] Support Name Relationship Address Phone Tristin Gray Guarantor Unknown [phone] Reason For Referral No Information Problems Problem Type SNOMED Code ICD Code Onset Dates Problem Status W/U Status Risk Notes Problem Pain in limb (28427619) Pain of left lowe r extremity (M79.605) Activeconfirmed Plan Of Treatment No Information Insurance Providers Payer Name Payer Address Payer Phone Subscriber Number Group Number Insured Name Patient Relationship to Insured Coverage Start Date Coverage End Date [employer] [address] [address] [place] [address] [id number] Tristin Gray Self - patient is the insured
--- OUTSIDE RECORDS SUMMARY | 2025-07-09 10:48 | XMS_ITS ---
Author Organization [facility] Address [address] [place] [address] Care Team Providers Care Oracle Fusion Middleware Developer Name Role Phone Nikko Bird MD Primary Care Provider Active Problems ProblemNoted DateDiagnosed DateBronchiectasis, hqxsijtocecfq52/10/2025Acquired absence of left leg below knee07/22/2024Other complications of amputation stump 4Coronary artery atvksnz9306/11/2024NSTEMI (non-ST elevated myocardial infarction)05/28/2024Hx of CABG05/28/2024Secondary hypercoagulable state 4Pulmonary hypertension, jyjespiznts27/30/2024Acute cystitis without /25/2024 Overview (04/22/2024): Last Assessment & Plan: Add Probiotic to help replenish the good bacteria that are destroyed by the Antibiotics Florastor Florajen Align or try Activia in Yogurt Probiotics reduce the risk of antibiotic induced diarrhea Other sppqcxflhherp47/25/2024 Overview (04/22/2024): Last Assessment & Plan: Has blood thinner Flu vaccine need4Routine general medical examination at health care fwdnlqsi27 Overview (10/09/2023): Last Assessment & Plan: Colonoscopy [...] exacerbation of chronic obstructive pulmonary Abnormal radiographic ucsfpxyqjxh48cute on chronic heart failure with preserved ejection kiuxbuij37rthritis04/09/2023 10/09/2023sthmatic mbgzrquspa95arotid artery stenosis Overview (10/09/2023): Last Assessment & Plan: Getting Carotid dopplers Xeaulltp91hronic kidney disease due to lkjquzrlkvwc74/13/2023 10/09/20232993Kbrsfxaawosn88Elevated erythrocyte sedimentation rateLeft sciatic nerve painNeuropathy Other chronic painaresthesia of skin aroxysmal atrial ojrtsmzjrpkt36hantom limb painolymyalgia swloroxxzh77rimary osteoarthritis of right hipSeasonal allergic rhinitis Sinusitis [...] any sugar elevations. Stage 3a chronic kidney qiiczij51hronic diastolic (congestive) heart hgfjkhv0504/09/20230383Hjiwdxjx32Lumbosacral spondylosis without trmwwsgglg85Mitral valve regurgitation 11/21/2022Inguinal pain11/21/20222741Keowoyk26/27/2023osterior tibial tendinitis of right leg11/07/2022Hematoma of arm, left, initial lpzbedbrk56/10/2023 Overview (11/21/2022): Last Assessment & Plan: 82 [...] pneumonia of left lower lobe of lung11/03/2022ulmonary itqayf5801/21/20226164Ysbzemnsil19/24/2022Thoracic aortic aneurysm without rupture 01/12/2022oronary artery disease involving chitimacha coronary artery of chitimacha heart without angina /18/2021/P total hip eowypqwoeyqe94/18/2021/P transmetatarsal amputation of foot, left07/15/2021ortic valve regurgitation 05/07/2021Peripheral arterial occlusive jkqruea5101/09/2019Gangrene of left foot 10/04/2018Coronary artery disease involving coronary bypass graft of chitimacha heart without angina ecbvfkqq13/09/2019 Overview (11/21/2022): Last Assessment & Plan: Patient with remote coronary artery bypass grafting to 3 vessels. Patient denies chest pain at thistime. Twomabrslcasvbltln64/09/2019 Overview (11/21/2022): Last Assessment & Plan: Patient [...] a goal BMI <30. Critical lower limb ediwzflr23/08/2019 Overview (11/21/2022): Last Assessment & Plan: Pt s/p LLE angiogram with Dr Hahn who feels that the pt has no further endovascular options. He has consulted Dr. Millan for a possible tibial bypass. Pt s/p LLE critical limb ischemia Dixon class 4 rest pain with distal discoloration to his toes. Pt is s/p L pop angioplasty with stent placement 08/09 at [facility] in [place], [place]. Ptwas placed on Xarelto and ASA. [...] medication. ?? Will sign off Peripheral arterial zepkile0608/10/2018 Overview (11/21/2022): Last Assessment & Plan: S/P [...] was known to be reduced (0.5) Pure koquydifoohoghrdozfo71/14/2018 Overview (11/21/2022): Last Assessment & Plan: Resume home medications Follow up after discharged with PCP Obesity (BMI 30.0-34.9)08/10/2018 Overview (11/21/2022): Last Assessment & Plan: Diet and lifestyle modifications strongly encouraged Follow up after discharged with PCP for further treatment options Intermittent orrdjvotahko64/12/2018 Overview (11/21/2022): Added automatically from request for surgery [id number] Last Assessment & Plan: Heparin drip initiated, pharmacy to manage per protocol ASA and Plavix started Cardiovascular surgeon consulted PT/OT evaluation and treatment Monitor labs, VS and telemetry as ordered Pain management Last Assessment & Plan: S/P Left Lower Extremity Angiogram with ballooning and stent 08/09/2018 Post op orders per surgeon DVT/GI prophylaxis Monitor labs, VS and telemetry as ordered Pain management Zrjxplxtq69/04/2022Fcqefitnk45/18/2014bdominal pain07/11/2014Hypertensive kuedqjqs71/22/2014 Overview (11/21/2022): Last Assessment & Plan: Resume home medications as ordered Follow up after discharged with PCP Labetalol PRN for SBP> 160 Monitor VS as ordered Last Assessment & Plan: Patient with history of hypertension. Blood pressure at this time 132/62. Plan: ?? Continue medications as prescribed. Disorder of lipid bxatqekzpt35/27/6484Amvfyejxm43/14/2014Chest pain08/30/2013 Coronary aykazjcivjuzfun81/03/2014Mixed xushvxnywhcfvy19/03/2014Dyspnea 08/30/2013Preinfarction jchldiou84/03/2014vascular necrosis of bone of hip 09/04/2011 Overview (11/21/2022): Right hip Herpes vmitcj5109/04/2011Pain of left lower quzpdyclw78/08/2012 Overview (11/21/2022): Last Assessment & Plan: -Presented to [facility] 09/04/2018 as a transfer from [place] for second opinion regarding left lower extremity [...] in pain -Reports pain is uncontrolled with DIRECTOR COLLEGE Dilaudid pump, and pain does not decrease [...] Fernandez RN -Please call with questions Prostate aiorif0609/04/2011Chronic ischemic heart vivadqv51 Impotence of organic ojiuyv93enign essential hypertension 07/04/2008 Overview (04/22/2024): Last Assessment [...] * ChemicalLifetime DoseAutomatic EntryManual EntryFluoro Time18.04 minutes0 tketkpm50.04 minutesAir Kerma1,177.89 mGy0 mGy1,177.89 mGyDose Area Product 111,633 mGy-cm20 mGy-oy9042,633 mGy-cm2
--- OUTSIDE RECORDS SUMMARY | 2025-07-09 10:48 | XMS_ITS | Encounter Summary ---
Author Organization [facility] Address [address] [place] [address] Care Team Providers Care Steam Box Hand Name Role Phone Nikko Bird MD Unavailable Nikko Bird MD Primary Care Provider [phone] Elaine Saab LPN Unavailable Reason for Visit * ReasonCommentsMed Refill Encounter Details DateTypeDepartmentCare Team (Latest Contact Info)Mvubuuhrgxb05/30/2025Refill [facility] [address] [place] [id number] Nikko Bird MD [address] [facility] [address] [place], [place] [id number] History of prostate cancer; Urinary hesitancy Social History Tobacco UseTypesPacks/DayYears UsedDateSmoking Tobacco: NeverSmokeless Tobacco: NeverAlcohol UseStandard Drinks/WeekCommentsNot Currently0 (1 standard drink = 0.6 oz pure alcohol)Coffee 1-2 cups per mxfE2469 Health LiteracyAnswerDate RecordedHow often do you need to have someone help you when you read instructions, pamphlets, or other written material from your doctor or pharmacy? Fvbgdg0306/21/2024Humiliation, Afraid, Rape, and Kick questionnaireAnswerDate RecordedWithin the last year, have you been afraid of your partner or ex-partner?No06/21/2024Within the last year, have you been humiliated or emotionally abused in other ways by your partner or ex-partner?No10/ Within the last year, have you been [...] heating?Not hard at all06/21/2024HQ-2AnswerDate RecordedPatient Health Questionnaire-2 Zfebb523Finamerican fork hospital [place] of Occupational Health - Occupational Stress QuestionnaireAnswerDate [...] homeless or living in a snf (including now)?No06/21/2024Sex and Gender InformationValueDate RecordedSex Assigned at BirthNot on fileLegal MvrXjnn4611/09/2022 7:18 PM EDTGender IdentityNot on fileSexual OrientationNot on filedocumented as of this encounter Plan of Treatment Not on file documented as of this encounter Visit Diagnoses Diagnosis History of prostate cancer Personal history of malignant neoplasm of prostate Urinary hesitancy documented in this encounter Additional Health Concerns AssessmentNoted TimePHQ-9 Depression Total Score: 9:00 AM EDT documented as of this encounter Care Teams Team MemberRelationshipSpecialtyStart DateEnd Date Nikko Bird MD [address] [facility] [address] [place] [address] PCP - [facility]08/28/17 Nikko Bird MD [address] [facility] [address] [place] [address] [facility] - [facility] Elaine Saab LPN [address] [facility] [address] [place] [address] 11/15/24documented as of this encounter
--- OUTSIDE RECORDS SUMMARY | 2025-07-09 10:48 | XMS_ITS | Clinical Summary ---
Author Organization [facility] Address [id number] [address] [place] [address] Care Team Providers Care Metal Mold Dresser Name Role Phone Nikko Bird MD Primary Care Provider [phone] Allergies Active AllergyReactionsCriticalityNoted DateCommentsOxycodoneAnaphylaxisHigh 11/24/2016 Medications MedicationSigDispense [...] Tobacco UseTypesPacks/DayYears UsedDateSmoking Tobacco: Never AssessedChildcare AnswerDate BoksitvnDgejvncscZqcdcav01/12/2019EmploymentAnswerDate Recorded KbsbpxqvzyGnccrjn15/12/2019Purpose - LifeAnswerDate RecordedPurpose and direction in qgiyMowiyax46/11/2021Sex and Gender InformationValueDate Recorded Sex Assigned at BirthNot on fileLegal ItaGfai0604/02/2015 11:35 AM EDTGender IdentityNot on fileSexual OrientationNot on file Last Filed Vital Signs Vital SignReadingTime TakenCommentsBlood Hvgswqla271/68011/24/2016 10:29 AM EDT Lbgiy2052 10:29 AM TXCPishvfukhpt16.7 ??C (98 ??F)11/24/2016 10:29 AM EDTRespiratory Yftq336511/24/2016 10:29 AM EDTOxygen Saturation--Inhaled Oxygen Concentration--Htathk134.6 kg (235 lb)11/24/2016 10:29 AM EDTHeight--Body Mass Index-- Plan of Treatment Health MaintenanceDue DateLast DoneCommentsDepression Byfcdqjsw29/09/1952Tobacco Pdlvsoawd43/09/1952TaP,Tdap and Td Vaccines (1 - Tdap)1958Zoster (Shingles) Vaccine (1 of 2)1989Fall Risk Eitdpikuw82/09/2004RSV ( or age 60+ yrs) (1 - 1-dose 75+ series)2014Influenza Kwvxtvi2604/28/2025 Medical Devices Not on file Insurance Care Teams Team MemberRelationshipSpecialtyStart DateEnd Nikko Bird MD [facility] [address] [place] [phone] [facility]11/16/16
--- OUTSIDE RECORDS SUMMARY | 2025-07-09 10:49 | XMS_ITS | Clinical Summary ---
Author Organization [facility] Address [address] [place] [address] Phone Care Team Providers Care Highway Worker Name Role Phone Unavailable Primary Care Provider [...]
--- OUTSIDE RECORDS SUMMARY | 2025-07-09 10:49 | XMS_ITS | Clinical Summary ---
Author Organization [facility] Address [address] [place] [address] Care Team Providers Care Plater Supervisor Name Role Phone Nikko Bird MD Primary Care Provider [phone] System, Provider Not In Unavailable Unavaila ble Allergies Active AllergyReactionsCriticalityNoted EulsGnnflrofUporphasadk19/28/2019 Elevated blood pressure, GI intolerance/ nausea/vomiting GabapentinGI Yvczowfcezm01/18/2025 Medications MedicationSigDispense QuantityRefillsLast FilledStart DateEnd DateStatus metoprolol [...] 30 tablet 03/21/2025tive naloxone (NARCAN) 4 mg/actuation [place] Administer 1 spray into one nostril for [...] of right legHematoma of arm, left, initial mnsipvawx36/10/2023 Assessment & Plan (11/04/2022 7:47 AM EST): [...] pneumonia of left lower lobe of lung3Pulmonary hreisf992PAD (peripheral artery disease)01/21/2022 Assessment & Plan (03/14/2025 [...] 2022 was known to be reduced (0.5) [place]66/24/2022Gangrene of left foot10/04/2018Acute pain of right lower rwpqbdyue84/10/2019 Assessment & Plan (09/07/2018 2:48 PM EST): -Presented to [facility] 09/04/2018 as a transfer from [place] for second opinion regarding left lower extremity [...] in pain -Reports pain is uncontrolled with INSURANCE BILLING SPECIALIST Dilaudid pump, and pain does not decrease [...] artery disease involving coronary bypass graft of makah heart without angina /09/2019 Assessment & Plan (03/14/2025 3:30 PM EDT): S/p 3v CABG in 2017 Asymptomatic Assessment & Plan (09/05/2018 8:45 AM EST): Patient with remote coronary artery bypass grafting to 3 vessels. Patient denies chest pain at thistime. Lbbuvitwawxgluvftu55/09/2019 Assessment & Plan (09/05/2018 8:46 AM EST): Patient with history of hypercholesteremia. Plan: ?? Continue high intensity statin medication ?? Risk factor modification. Essential mkthfugawqjb52/09/2019 Assessment & Plan (09/05/2018 8:47 AM EST): [...] a goal BMI <30. Critical lower limb bocwrkye00/08/2019 Assessment & Plan (03/15/2025 9:12 AM EDT): Presents from Dr. 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 Pt s/p LLE critical limb ischemia [place] class 4 rest pain with distal discoloration to his toes. Pt is s/p L pop angioplasty with stent placement 08/09 at [facility] in [place], [place]. Ptwas placed on Xarelto and ASA. [...] medication. ?? Will sign off Encounters DateTypeDepartmentCare EpoqJnszduwuzrt97/21/2025 1:06 PM EDT - 06/17/2025 11:59 PM EDTHospital Encounter [facility] [place] [address] Gracy Millan MD Discharge Disposition: Home06/06/2025Orders Only [facility] [phone] Ludivina Garcia RN PVD (peripheral vascular disease) (Primary Dx)06/05/2025 12:51 PM EDT - 06/05/2025 11:59 PM EDTHospital Encounter [facility] [address] [place] [address] Gracy Millan MD Discharge Disposition: Home06/02/2025Orders Only [facility] [phone] Ludivina Garcia RN PVD (peripheral vascular disease) (Primary Dx)04/23/2025 3:15 PM EDTFollow-Up [facility] [address] [place] [phone] Gracy Millan MD Critical lower limb ischemia (HCC) (Primary Dx)04/23/2025 12:25 PM EDT - 04/23/2025 11:59 PM EDTHospital Encounter [facility] [address] [place] [phone] Gracy Millan MD Discharge Disposition: Home04/23/2025 12:25 PM EDT - 04/23/2025 11:59 PM EDT Hospital Encounter [facility] [address] [place] [address] Gracy Millan MD Discharge Disposition: Home04/23/2025Travelfrom Last 3 Months Immunizations ImmunizationAdministration DatesNext DueINFLUENZA IIV3 65+YO FLUAD06/18/2019 Influenza, Injectable, Jwohyxixvdvu37/25/2017Influenza, high dose seasonal 06/06/2018,05/18/2015Pneumococcal Conjugate 13-Valent (Prevnar 13)05/18/2015 Family History Medical HistoryRelationCommentsProstate cancerBrotherHeart diseaseFatherNo Known ProblemsMotherCancerPaternal AuntRelationStatusCommentsBrotherFatherMother Paternal Aunt Social History Tobacco UseTypesPacks/DayYears UsedDateSmoking Tobacco: NeverSmokeless Tobacco: NeverAlcohol UseStandard Drinks/WeekCommentsNot Currently0 (1 standard drink = 0.6 oz pure alcohol)[facility] UtilitiesAnswerDate RecordedIn the past 12 months has the [employer], gas, oil, or water [employer] threatened to shut off services in your [...] Recorded Sex Assigned at BirthNot on fileLegal NfpTtsd5212/21/2013 2:37 PM EDTGender AlbclxnzRuwy77/08/2019 8:23 PM ESTSexual TyxgzznvsquBncbkpal42/08/2019 8:23 PM EST Last Filed Vital Signs Vital SignReadingTime TakenCommentsBlood Ivykybaj343/7208 2:36 PM EDT Eccsb2883 2:36 PM FDOEvheuukwdvw47.7 ??C (98.1 ??F)03/21/2025 2:58 PM EDTRespiratory Qxyi2143 2:30 PM EDTOxygen Zaedmfgawt68%04/23/2025 2:30 PM EDTInhaled Oxygen Concentration--Qjzxth034.1 kg (245 lb)04/23/2025 2:30 PM QEDOadmjx911 cm (6' 2 )04/23/2025 2:30 PM EDTBody Mass Index31.4608 2:30 PM EDT Plan of Treatment Health MaintenanceDue DateLast DoneCommentsTetanus/Diphtheria/Pertussis (1 - Tdap)1958Zoster Vaccines (1 of 2)1989Falls Risk Zsfyhmembi19/09/2004 RSV Vaccines (1 - 1-dose 75+ series)2014Pneumococcal Vaccine: 50+ Years (2 of 2 - PPSV23, PCV20, or PCV21)Medicare Wellness Visit /3COVID-19 Vaccine ( season)5009/09/2021, 10/28/2020, 09/30/2020epression Screening/Follow-Up (PHQ-2/9)03/15/2026 03/15/2025Influenza GtziodpBdcfykrwp64/14/2025, 06/18/2019, 06/06/2018, Additional history existsHIB VaccinesAged OutNo [...] LotHemostat 2 X 4in Surgicel Fibrillar - [id number] Implanted:Qty: 1 on 09/07/2018 [facility] [id number]/30/[id number] / / [id number] 2 X 4in Surgicel Fibrillar - Sna Implanted:Qty: 1 on 03/17/2025 by [facility] CenterETHICON05/27/[id number] / NA / 105KURSealant 10ml Hemostatic Matrix Fast Prep Floseal W/Recothrom - [id number] Implanted:Qty: 1 on 03/17/2025 by [facility]Right: ArterialBAXTER [id number]/12/2026 [id number] / / [id number] Procedures Procedure NamePriorityDate/TimeAssociated DiagnosisCommentsUS DUPLEX BYPASS GRAFT LE LIMITED FUOXLIpogokg55/21/2025 2:15 PM EDT PVD (peripheral vascular disease) US ANKLE/BRACHIAL INDICES EXTREMITY XXEXALNPcoimxj84/09/2025 1:29 PM EDT PVD (peripheral vascular disease) US ANKLE/BRACHIAL INDICES EXTREMITY LRPKQFLPtcdnvo86/27/2025 2:18 PM EDT PVD (peripheral vascular disease) Critical lower limb ischemia (HCC) US DUPLEX LE BYPASS GRAFT COMPL KMECSYnufgtp55/27/2025 2:18 PM EDT PVD (peripheral vascular disease) Critical lower limb ischemia (HCC) from Last 3 Months Results * US Duplex Bypass Graft Right LE (06/17/2025 2:15 PM EDT)Specimen (Source) Anatomical Location / LateralityCollection Method / VolumeCollection Time Received Time06/17/2025 1:26 PM EDT Narrative Skyhigh NetworksI SYNAPSE CV - 06/17/2025 2:54 PM EDT Patient Info Name: ? Tristin Gray Age: ? 85 years : ? 1940 Gender: ? Male Accession #: ? [id number] Exam Date: ? 06/17/2025 1:26 PM Patient Status: ? OUTPATIENT Site Location: ? Indications ?I73.9 - Peripheral vascular disease, ??unspecified Procedure Description ??28477 Duplex scan of lower extremity arteries or arterial bypass grafts using B-mode, color and spectral Doppler; unilateral or limited study. Privacy Analyst: ? Gail SUAREZ, RVS Staff Ordering Provider: ? Grcay Millan MD, RPVI Conclusions ??* Difficult exam due to leg [...] 1:26 PM Patient Status: OUTPATIENT Site Location: [facility] [place] I73.9 - Peripheral vascular disease, unspecified Procedure Description 46187 Duplex scan of lower extremity arteries or arterial bypassgrafts using B-mode, color and spectral Doppler; unilateral or limited study. Privacy Analyst: Gail Foy BS, RVS Staff Ordering Provider: [...] VASCULAR ORDERABLESFinal ResultPerforming OrganizationAddressCity/State/ZIP CodePhone Number MARK RAINEY CV * Ultrasound ankle / brachial indices extremity complete (06/05/2025 1:29 PM EDT) Only the most recent of2 resultswithin the time period is included. Specimen (Source)Anatomical Location / LateralityCollection Method / Volume Collection TimeReceived Time06/05/2025 1:16 PM EDT Narrative MARK RAINEY CV - 06/05/2025 2:48 PM EDT Patient Info Name: ? Tristin Gray Age: ? 85 years : ? 1940 Gender: ? Male Accession #: ? [id number] Exam Date: ? 06/05/2025 1:16 PM Patient Status: ? OUTPATIENT Site Location: ? Indications ?I73.9 - PVD (peripheral vascular disease) Procedure Description ??67815 Limited bilateral noninvasive physiologic studies of upper or lower extremity arteries with bidirectional Doppler/PVR waveform analysis at 1-2 levels. Privacy Analyst: ? Ginette Gonzalez RDMN, RVS Staff Ordering Provider: ? Gracy Millan [...] to amputation. ??* Previous YAMILE done at [facility]- Right: 0.96 Left: 0.57. Recommendations ??* This [...] Segmental BP RIGHT Brachial A mmH RIGHT DEVELOPER ANALYST mmH RIGHT DEVELOPER ANALYST Index: 0.90 RIGHT DPA mmH RIGHT DPA Index: 0.80 RIGHT YAMILE Index: 0.90 LEFT Brachial A mmH LEFT DEVELOPER ANALYST Index: 0.65 LEFT DEVELOPER ANALYST mmH LEFT DPA Index: 0.80 LEFT DPA mmH LEFT YAMILE Index: 0.80 Doppler RIGHT DEVELOPER ANALYST Waveform: Multiphasic RIGHT DPA Waveform: Multiphasic LEFT DEVELOPER ANALYST Waveform: Multiphasic LEFT DPA Waveform: Multiphasic [...] - PVD (peripheral vascular disease) Procedure Description 75082 Limited bilateral noninvasive physiologic studies of upper orlower extremity arteries with bidirectional Doppler/PVR waveform analysis at1-2 levels. Privacy Analyst: Ginette Gonzalez RDMS, RVS Staff Ordering Provider: [...] to amputation. * Previous YAMILE done at [facility]- Right: 0.96 Left: 0.57. Recommendations * [...] Segmental BP RIGHT Brachial A mmH RIGHT DEVELOPER ANALYST mmH RIGHT DEVELOPER ANALYST Index: 0.90 RIGHT DPA mmH RIGHT DPA Index: 0.80 RIGHT YAMILE Index: 0.90 LEFT Brachial A mmH LEFT DEVELOPER ANALYST Index: 0.65 LEFT DEVELOPER ANALYST mmH LEFT DPA Index: 0.80 LEFT DPA mmH LEFT YAMILE Index: 0.80 Doppler RIGHT DEVELOPER ANALYST Waveform: Multiphasic RIGHT DPA Waveform: Multiphasic LEFT DEVELOPER ANALYST Waveform: Multiphasic LEFT DPA Waveform: Multiphasic , PVR RIGHT Ankle Grade: Abnormal RIGHT Transmetarsal Grade: Abnormal RIGHT Digit (PPG) Grade: Abnormal LEFT Ankle Grade: Abnormal Prior Interventions Left transmetatarsal amputation. Left femoral to peroneal arterybypass. Report Signatures Finalized by Neetu De La Rosa MD on 06/05/2025 02:48 PM Authorizing ProviderResult TypeResult StatusJoy Cornelio ROBLES VASCULAR ORDERABLESFinal ResultPerforming OrganizationAddressCity/State/ZIP CodePhone Number FUJI SYNAPSE CV * US Duplex Bypass Graft LE Bilateral (04/23/2025 2:18 PM EDT)Specimen (Source) Anatomical Location / LateralityCollection Method / VolumeCollection Time Received Time04/23/2025 12:53 PM EDT Narrative MARK RAINEY CV - 04/23/2025 2:41 PM EDT Patient Info Name: ? Tristin Gray Age: ? 85 years : ? 1940 Gender: ? Male Accession #: ? [id number] Exam Date: ? 04/23/2025 12:53 PM Patient Status: ? OP SERIES Site Location: ? [facility] Indications ?I73.9 - Peripheral vascular disease, ??unspecified ?I70.229 - Atherosclerosis of makah arteries of extremities with rest pain, ??unspecified extremity Procedure Description ??39389 Duplex scan of lower extremity arteries or arterial bypass grafts using B-mode, color and spectral Doppler; unilateral or limited study. Privacy Analyst: ? Jigna Vera RDMN, RVT Staff Ordering Physician: ? Gracy Millan MD, VI Conclusions ??* Right. ??* Less than 50% [...] Artery Segment: Gabriela LEFT Inflow Artery Segment: DOCUMENTATION LIAISON LEFT Inflow Artery PSV: 126 LEFT Inflow [...] Status: OP SERIES Site Location: [facility] Indications I73.9 - Peripheral vascular disease, unspecified I70.229 - Atherosclerosis of makah arteries of extremities withrest pain, unspecified extremity Procedure Description 94111 Duplex scan of lower extremity arteries or arterial bypassgrafts using B-mode, color and spectral Doppler; unilateral or limited study. Privacy Analyst: Jigna Vera RDMS, RVT Staff Ordering [...] Artery Segment: Gabriela LEFT Inflow Artery Segment: DOCUMENTATION LIAISON LEFT Inflow Artery PSV: 126 LEFT Inflow [...] ResultPerforming OrganizationAddressCity/State/ZIP CodePhone Number FUJI SYNAPSE CV from Last 3 Months Insurance Advance Directives For more information, please contact: [phone] TypeDate RecordedPatient RepresentativeExplanationPower of Attorney10/13/2018 9:03 PMRECEIVED [...] Team MemberRelationshipSpecialtyStart DateEnd Date Nikko Bird MD [address] [place], [place] [id number] PCP - GeneralFamily Medicine09/04/18 System, Provider Not In Cardiologist11/09/22
--- OUTSIDE RECORDS SUMMARY | 2025-07-09 10:49 | XMS_ITS | Clinical Summary ---
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 Role Phone Nikko Bird MD Primary Care Provider [phone] Allergies Active AllergyReactionsCriticalityNoted DgdsFtjkaudqQemnsfrtyi66/12/2025 Medications MedicationSigDispense QuantityRefillsLast FilledStart DateEnd DateStatus rivaroxaban [...] spray by Nasal route daily as needed.5Active Active Problems ProblemNoted DateDiagnosed DateAnemia (Low HGB)05/09/20252190Flgzsexrif65/12/2025 Sfipafuwqb58/12/2025oronary artery disease involving [place] coronary artery of [place] heart without angina uzrghckw82/18/2021/P transmetatarsal amputation of foot, left07/15/2021Mixed ysmuursbchgojp79/18/2021eripheral arterial disease 07/15/2021/P total hip sldtvrqdwdjo99/18/2021Obesity: body mass index of 30.0-34.9110/11/2017 Assessment & Plan (08/30/2018 3:40 PM EST): Diet and lifestyle modifications strongly encouraged Follow up after discharged with PCP for further treatment options Claudication of left lower pdwroxmfk45/14/2018 Assessment & Plan (08/10/2018 11:36 AM EST): S/P Left Lower Extremity Angiogram with ballooning and stent 08/09/2018 Post op orders per surgeon DVT/GI prophylaxis Monitor labs, VS and telemetry as ordered Pain management Essential aybqlrxixmia45/14/2018 Assessment & Plan (08/30/2018 3:39 PM EST): Resume home medications as ordered Follow up after discharged with PCP Labetalol PRN for SBP> 160 Monitor VS as ordered Assessment & Plan (08/10/2018 11:36 AM EST): Resume home medications as ordered Follow up after discharged with PCP Labetalol PRN for SBP> 160 Monitor VS as ordered Pure cljcxxmgmmysbezqzytj47/14/2018 Assessment & Plan (08/30/2018 3:39 PM EST): Resume home medications Follow up after discharged with PCP Assessment & Plan (08/10/2018 11:37 AM EST): Resume home medications Follow up after discharged with PCP Lipid panel ordered Vascular disease, xfbaltvpnb72/14/2018 Assessment & Plan (08/10/2018 11:37 AM EST): S/P angiogram with Dr. Mayen Follow up after discharged as previously scheduled Smkbieuwurfi76/12/2018 Overview (08/08/2018): Added automatically from request for surgery [id number] Assessment & Plan (08/30/2018 3:38 PM EST): Heparin drip initiated, pharmacy to manage per protocol ASA and Plavix started Cardiovascular surgeon consulted PT/OT evaluation and treatment Monitor labs, VS and telemetry as ordered Pain management Herpes thiriu6609/04/2011Pain of left lower vohryqwwn79/08/2012vascular necrosis of bone of hip09/04/2011 Overview (09/04/2011): Right hip Prostate pbxvqe9509/04/2011 Resolved Problems ProblemNoted DateDiagnosed DateResolved DateHip pain Encounters DateTypeDepartmentCare WnjbEphqrdzyoyu87/12/2025 2:31 AM EDT - 05/13/2025 11:45 AM EDTHospital Encounter [id number] [address] [place] [address] Vivienne Gerard MD Ye, Danica Khan MD Hemoptysis Discharge Disposition: Home Health Care [facility] [place]05/09/2025Travelfrom Last 3 Months Family History Medical HistoryRelationNameCommentsProstate [...] InformationValueDate RecordedSex Assigned at BirthNot on fileLegal NlmOlva0709/30/2012 7:06 PM ESTGender CpbtumfgMtfc34/19/2018 11:34 AM ESTSexual OrientationNot on file Last Filed Vital Signs Vital SignReadingTime TakenCommentsBlood Bnmxghna167/68005/13/2025 7:29 AM EDT Tffuc0444/16/2025 7:29 AM JTNOcarhcfgkqn39.4 ??C (97.5 ??F)05/13/2025 7:29 AM EDTRespiratory Vfbc713705/13/2025 7:29 AM EDTOxygen Wdnpfyytlm66%05/13/2025 7:29 AM EDTInhaled Oxygen Concentration--Xthpix039.9 kg (240 lb)05/09/2025 2:00 AM FPXTfrnxi924 cm (6' 2 )05/09/2025 2:00 AM EDTBody Mass Index30.8105/09/2025 2:00 AM EDT Plan of Treatment Health MaintenanceDue DateLast DoneCommentsCOLORECTAL CANCER SCREENING FBFYDMLYRO18/09/1984ZOSTER (SHINGLES) VACCINE (1 of 2)1989RSV VACCINE (1 - 1-dose 75+ series)2014COVID-19 VACCINE ( season)2025 09/09/2021, 10/28/2020, 09/30/2020INFLUENZA VACCINE (#1)512/, 06/06/2023, 05/31/2022, Additional history lyubfkWRXLZSIEK47/14/202609/, 05/09/2025, 06/17/2021, Additional history cvhjrgUSNNHQD99/03//10/2019TDAP (ADULT)Rdopzoomg61/03/2020PNEUMOCOCCAL VACCINE CXHLWOCnpnmgqna38/11/2021, 05/28/2020, 05/18/2015HEP B VACCINEAged OutNo longer eligible based on patient's age to complete this topic Medical Devices ImplantedTypeAreaManufacturerDevice IdentifierShelf Expiration DateModel / Serial / LotPinnacle Altrx Polyethylene Acetabular Liner Neutral 36mm Id 62mm Od Implanted:Qty: 1 on 07/15/2021 by [facility] LOCHip JointRight: Hip07/27/2025/ 1221-36-052 / [id number] Gription Acetabular Shell Sector 62mm Od Implanted:Qty: 1 on 07/15/2021 by Dashawn Silvestre MD at [facility] JointRight: Hip09/27/2029/ 1217-32-062 / [id number] Delta Ceramic Femoral Head +1.5 36mm Jaki 08/10 Taper Implanted:Qty: 1 on 07/15/2021 by Dashawn Silvestre MD at [facility] JointRight: Hip04/27/2026/ 1365-36-310 / [id number] Femoral Stem 08/10 Taper Size 7 Mi 133mm Implanted:Qty: 1 on 07/15/2021 by Dashawn Silvestre MD at [facility] JointRight: Hip10/25/2025/ 1570-13-135 / [id number] Stem Centralizer 12.0mm Cemented Implanted:Qty: 1 on 07/15/2021 by Dashawn Silvestre MD at [facility] JointRight: Hip09/27/2025/ 1376-21-000 / [id number] Flex [id number] - [id number] Implanted:Qty: 1 on 08/09/2018 by [facility]aias [facility]en MD at [facility] LOCLeft: LegCORDIS/[id number] / / [id number] Flex [id number] - [id number] Implanted:Qty: 1 on 08/09/2018 by Isaias Mayen MD at [facility] LOCLeft: LegCORDIS/[id number] / / [id number]-Vnli 6f Vip - [id number] Implanted:Qty: 1 on 08/09/2018 by Isaias Mayen MD at [facility] LOCRight: [facility] [id number] / / [id number] R 1 X 40 - [id number] Implanted:Qty: 1 on 07/15/2021 by Dashawn Silvestre MD at [facility] RE[facility] LOC Right: Hip/ / [id number] Lv 1x40 Single - [id number] Implanted:Qty: 2 on 07/15/2021 by Dashawn Silvestre MD at [facility] [employer] REV LOC Right: Viktor [id number] / / [id number] Procedures Procedure NamePriorityDate/TimeAssociated DiagnosisCommentsCREATININERoutine 05/13/2025 4:38 AM EDT TYPE AND YYLWDAQeikowm25/15/2025 5:09 AM EDT CBC AND ELECTRONIC UPQBWaaahbl76/15/2025 5:09 AM EDT CBC, EDIF, BWANOVQSDjknxpi81/15/2025 5:09 AM EDT SYUIKJUXZMPlukklg02/15/2025 5:09 AM EDT CBC AND ELECTRONIC MGRBGrvswno11/14/2025 3:53 AM EDT CBC, EDIF, TFIIJIKKUspwqig88/14/2025 3:53 AM EDT CHEM 6 (LYTES, BUN CREA)Xsyblwy6705/11/2025 3:53 AM EDT HEPATIC FUNCTION TEJKEAajkrya97/14/2025 3:53 AM EDT VANCOMYCIN LEVEL, TROUGH (PRE DRUG LEVEL)Stjdcxi4005/10/2025 5:40 PM EDT HEMOGLOBIN & PRZGVQXDJIJxpsfub75/13/2025 5:40 PM EDT LOWER RESPIRATORY CULTURE, RLOBIJHCKWhaiojz40/13/2025 4:30 AM EDT C REACTIVE MSSTZMMNvrnrne94/13/2025 12:28 AM EDT SEDIMENTATION RATE, VEIJHHIWDHssrzcp88/13/2025 12:28 AM EDT WYGGBPHKBCEusudiw35/13/2025 12:28 AM EDT US ABDOMEN RUQ/LIVER/QGPkrpjmq20/12/2025 7:21 AM EDT HEPATITIS BATTERY, YFEYCSQYrygalv01/12/2025 6:39 AM EDT CBC AND ELECTRONIC RVCBRmfkjes62/12/2025 3:37 AM EDT HEPATIC FUNCTION RWFOEChircce59/12/2025 3:37 AM EDT PT,INR,AGZEwfojod61/12/2025 3:37 AM EDT PHOSPHATE, MRATCGHTHJglfyhg62/12/2025 3:37 AM EDT TUZJTINHURsbaonz64/12/2025 3:37 AM EDT SYOLFYGQkpgrcb07/12/2025 3:37 AM EDT CHEM 7 (LYTES,BUN,CREA,GLUC)Xcsakzv6505/09/2025 3:37 AM EDT CBC, EDIF, NUZGDXXVVnsxcjl81/12/2025 3:37 AM EDT XR CHEST (OUTSIDE IMAGE)Xwbrrjf6905/07/2025 CT CHEST (OUTSIDE IMAGE)Omeemyv4805/06/2025 from Last 3 Months Results * CREATININE (05/13/2025 4:38 AM EDT) Only the most recent of3 resultswithin the time period is included. ComponentValueRef RangeTest MethodAnalysis TimePerformed AtPathologist Signature Creatinine0.770.70 - 1.30 mg/dL05/13/2025 5:22 AM [facility] CLINICAL LABORATORYeGFR, CKD-EPI, Male87>=60 mL/min/1.50k64405/13/2025 5:22 AM EDT [facility] CL[facility] LABORATORYComment:Reported eGFR is based on the CKD-EPI 2020 equation using creatinine, age, and sex.Specimen (Source) Anatomical Location / LateralityCollection Method / VolumeCollection Time Received TimeBloodVenipuncture / Qnytfqm2305/13/2025 4:38 AM EDT05/13/2025 4:53 AM EDT Narrative Authorizing ProviderResult TypeResult StatusAndglen Pineda MD CHEMISTRY ORDERABLESFinal ResultPerforming OrganizationAddressCity/State/ZIP CodePhone Number [facility] [address] [place] [address] * (ABNORMAL) CBC AND ELECTRONIC DIFF (05/12/2025 5:09 AM EDT) Only the most recent of3 resultswithin the time period is included. ComponentValueRef RangeTest MethodAnalysis TimePerformed AtPathologist Signature WBC Count5.523.73 - 10.10 K/uL05/12/2025 5:29 AM [facility] CLINICAL LABORATORYRBC Count3.23(L)4.38 - 5.83 M/uL05/12/2025 5:29 AM [facility] DBKYNYDRSENsqwnajooc83.0(L)13.4 - 16.8 g/dL 05/12/2025 5:29 AM [facility] CLINICAL LABORATORYHematocrit 29.7(L)39.6 - 48.8 %05/12/2025 5:29 AM [facility]IN[facility] LABORATORYMean Cell Afgwyz20.079.0 - 94.5 fL05/12/2025 5:29 AM [facility]IN[facility] LABORATORYMean Cell Hgb31.026.1 - 33.3 pg05/12/2025 5:29 AM [facility] LABORATORYMean Cell Hgb Conc33.731.9 - 36.5 g/dL05/12/2025 5:29 AM [facility] CLIN[facility] LABORATORYRBC Fdtddcjnhlbu98.5(H)10.9 - 14.3 %05/12/2025 5:29 AM [facility] CLIN[facility] LABORATORYPlatelet Iggee094620 - 337 K/uL05/12/2025 5:29 AM [facility] LABORATORYMean Platelet Volume9.48.7 - 12.3 fL 05/12/2025 5:29 AM [facility] CLINICAL LABORATORYDIFF STATUS Electronic Zgabidtehplu98/15/2025 5:29 AM [facility] CLINICAL LABORATORYSegs + Bands Auto77.5%05/12/2025 5:29 AM [facility] CLIN[facility] LABORATORYImmature Grans %1.8%05/12/2025 5:29 AM [facility] CLIN[facility] LABORATORYLymphocyte % Auto10.7%05/12/2025 5:29 AM [facility] LABORATORYMonocyte % Auto8.9%05/12/2025 5:29 AM [facility] LABORATORYEosinophil % Auto0.9%05/12/2025 5:29 AM [facility] LABORATORYBasophil % Auto0.2%05/12/2025 5:29 AM [facility] CLIN[facility] LABORATORYNucleated RBC0.0<=0.2 /100 WBC05/12/2025 5:29 AM [facility] CLINICAL LABORATORYSegs + Bands,Absolute Auto4.281.57 - 6.19 K/uL05/12/2025 5:29 AM [facility]IN[facility] LABORATORYImmature Grans Absolute0.10(H)<=0.07 K/uL 05/12/2025 5:29 AM [facility] LABORATORYAbs Lymph Auto0.59(L)0.83 - 3.57 K/uL05/12/2025 5:29 AM [facility] LABORATORYAbs [place] Auto0.490.24 - 0.93 K/uL05/12/2025 5:29 AM [facility] LABORATORYAbs Eos Auto0.050.00 - 0.48 K/uL 05/12/2025 5:29 AM [facility] LABORATORYAbs Baso Auto <0.040.00 - 0.09 K/uL05/12/2025 5:29 AM [facility] CLINICAL LABORATORYSpecimen (Source)Anatomical Location / LateralityCollection Method / VolumeCollection TimeReceived TimeBloodVenipuncture / Oggkywe1005/12/2025 5:09 AM EDT05/12/2025 5:27 AM EDT Narrative Authorizing ProviderResult TypeResult StatusDanica Aguila MDHEMATOLOGY ORDERABLES Final ResultPerforming OrganizationAddressCity/State/ZIP CodePhone Number [facility] [address] [place] [address] * TYPE AND SCREEN (05/12/2025 5:09 AM EDT)ComponentValueRef RangeTest Method Analysis TimePerformed AtPathologist SignatureABO/RH(D) TYPEO POS05/12/2025 6:20 AM [facility] LAB[facility] BLOOD BANKSpecimen Lubznkqkyn55/18/2025 23:59005/12/2025 6:20 AM [facility] BLOOD BANKANTIBODY NJFZMOIBE33/15/2025 6:20 AM [facility] BLOOD BANKSpecimen (Source) Anatomical Location / LateralityCollection Method / VolumeCollection Time Received TimeBloodBLOOD SPECIMEN / UnknownVenipuncture / Ikrtvmk5405/12/2025 5:09 AM EDT05/12/2025 5:22 AM EDT Narrative Authorizing ProviderResult TypeResult StatusDanica Aguila MDBLOOD BANK ORDERABLES Final ResultPerforming OrganizationAddressCity/State/ZIP CodePhone Number [facility] BLOOD BANK [address] [address], [place] * CHEM 6 (LYTES, BUN CREA) (05/11/2025 3:53 AM EDT)ComponentValueRef RangeTest MethodAnalysis TimePerformed AtPathologist WltwifhdnTCX213 - 25 mg/dL 05/11/2025 4:44 AM [facility] YOSFXJECVDOichfr280 135 - 145 mmol/L05/11/2025 4:44 AM [facility]IN[facility] LABORATORYPotassium3.63.5 - 5.0 mmol/L05/11/2025 4:44 AM [facility] QPZVISQSIDOshdzmjd19222 - 108 mmol/L05/11/2025 4:44 AM [facility] TRGLEEVCDZQM96748 - 31 mmol/L05/11/2025 4:44 AM [facility]IN[facility] LABORATORYCreatinine0.890.70 - 1.30 mg/dL05/11/2025 4:44 AM [facility] Bun/Crea Pvpzy990405/11/2025 4:44 AM [facility] LABORATORYAnion Mav081 - 17 mmol/L05/11/2025 4:44 AM [facility]IN[facility] LABORATORYeGFR, CKD-EPI, Male83>=60 mL/min/1.11n22205/11/2025 4:44 AM [facility] CLINICAL LABORATORYComment:Reported eGFR is based on the CKD-EPI 2020 equation using creatinine, age, and sex.Specimen (Source)Anatomical Location / LateralityCollection Method / VolumeCollection TimeReceived TimeBloodVenipuncture / Unokhau6805/11/2025 3:53 AM EDT05/11/2025 4:16 AM EDT Narrative Authorizing ProviderResult TypeResult StatusMegan Erin Aguila MDCHEMISTRY ORDERABLES Final ResultPerforming OrganizationAddressCity/State/ZIP CodePhone Number [facility] [address] [place] [address] * (ABNORMAL) HEPATIC FUNCTION PANEL (05/11/2025 3:53 AM EDT) Only the most recent of2 resultswithin the time period is included. ComponentValueRef RangeTest MethodAnalysis TimePerformed AtPathologist Signature Albumin3.3(L)3.5 - 5.0 g/dL05/11/2025 4:44 AM [facility] LABORATORYBilirubin Direct0.2<0.3 mg/dL05/11/2025 4:44 AM [facility] LABORATORYBilirubin Total0.6<1.5 mg/dL05/11/2025 4:44 AM [facility] GHAOFWEZHOOKT5166 - 126 U/L05/11/2025 4:44 AM [facility] ZPEUNDCQVSVNX59(H)10 - 52 U/L05/11/2025 4:44 AM [facility] KZSRWHVHMXPFZ2635 - 39 U/L 05/11/2025 4:44 AM [facility] LABORATORYTotal Protein 6.3(L)6.4 - 8.3 g/dL05/11/2025 4:44 AM [facility] CLIN[facility] LABORATORYSpecimen (Source)Anatomical Location / LateralityCollection Method / VolumeCollection TimeReceived TimeBloodVenipuncture / Irecehn0505/11/2025 3:53 AM EDT05/11/2025 4:16 AM EDT Narrative Authorizing ProviderResult TypeResult StatusDanica Aguila MDCHEMISTRY ORDERABLES Final ResultPerforming OrganizationAddressCity/State/ZIP CodePhone Number [facility] [address] [address] * (ABNORMAL) HEMOGLOBIN & HEMATOCRIT (05/10/2025 5:40 PM EDT)ComponentValueRef RangeTest MethodAnalysis TimePerformed AtPathologist JsrhlibmoKxktnpmvpa05.0 (L)13.4 - 16.8 g/dL05/10/2025 6:37 PM [facility] CLIN[facility] LABORATORYComment:Warmed to 15VFplynktohk98.5(L)39.6 - 48.8 %05/10/2025 6:37 PM [facility] CLIN[facility] LABORATORYSpecimen (Source)Anatomical Location / LateralityCollection Method / VolumeCollection TimeReceived Time BloodVenipuncture / Cokvaqs3105/10/2025 5:40 PM EDT05/10/2025 6:02 PM EDT Narrative Authorizing ProviderResult TypeResult StatusDanica Aguila MDHEMATOLOGY ORDERABLES Final ResultPerforming OrganizationAddressCity/State/ZIP CodePhone Number [facility] [address] [address] * VANCOMYCIN LEVEL, TROUGH (PRE DRUG LEVEL) (05/10/2025 5:40 PM EDT)Component ValueRef RangeTest MethodAnalysis TimePerformed AtPathologist Signature Vancomycin, Dubpxs31.9Therapeutic Range: 10.0-20.0 mcg/mL mcg/mL05/10/2025 6:25 PM [facility]IN[facility] LABORATORYSpecimen (Source) Anatomical Location / LateralityCollection Method / VolumeCollection Time Received TimeBloodVenipuncture / Ieytfca1605/10/2025 5:40 PM EDT05/10/2025 5:57 PM EDT Narrative Authorizing ProviderResult TypeResult StatusMelpenny Awad RPHDRUG/TOXICOLOGY Final ResultPerforming OrganizationAddressCity/State/ZIP CodePhone Number [facility] [address] [address] * LOWER RESPIRATORY CULTURE, BACTERIAL (05/10/2025 4:30 AM EDT)ComponentValueRef RangeTest MethodAnalysis TimePerformed AtPathologist SignatureCultureGrowth 05/12/2025 7:16 AM [facility] CLIN[facility] LABORATORYCultureModerate Growth Common oropharyngeal vizxbagw83/15/2025 7:16 AM [facility] CL[facility] LABORATORYGram StainNeutrophils, Rare05/12/2025 7:16 AM [facility] CL[facility] LABORATORYGram StainContaminating bacteria and epithelials, LIGHT 05/12/2025 7:16 AM [facility] CL[facility] LABORATORYGram StainSpecimen is of very poor quality and results may be compromised suggest recollection if clinically ndolznboj05/15/2025 7:16 AM [facility] Specimen (Source)Anatomical Location / LateralityCollection Method / Volume Collection TimeReceived TimeRespiratorySPUTUM SPECIMEN / Ugwhjlz2705/10/2025 4:30 AM EDT05/10/2025 6:48 AM EDT Narrative Authorizing ProviderResult TypeResult StatusMegan Erin Aguila MDMICROBIOLOGY - GENERAL ORDERABLESFinal ResultPerforming OrganizationAddressCity/State/ZIP CodePhone Number [facility] [address] [place] [address] * (ABNORMAL) C REACTIVE PROTEIN (05/10/2025 12:28 AM EDT)ComponentValueRef Range Test MethodAnalysis TimePerformed AtPathologist SignatureC Reactive Protein 37.48(H)<10.00 mg/L05/10/2025 1:16 AM [facility] CLIN[facility] LABORATORYSpecimen (Source)Anatomical Location / LateralityCollection Method / VolumeCollection TimeReceived TimeBloodVenipuncture / Cvdpymd2705/10/2025 12:28 AM EDT05/10/2025 12:51 AM EDT Narrative Authorizing ProviderResult TypeResult StatusJason A Labroo DPMIMMUNOLOGY ORDERABLESFinal ResultPerforming OrganizationAddressCity/State/ZIP CodePhone Number [facility] [address] [address] * (ABNORMAL) SEDIMENTATION RATE, AUTOMATED (05/10/2025 12:28 AM EDT)Component ValueRef RangeTest MethodAnalysis TimePerformed AtPathologist SignatureESR Ymkafoxnck815(H)<30 mm/hr05/10/2025 1:24 AM [facility] LABORATORYSpecimen (Source)Anatomical Location / LateralityCollection Method / VolumeCollection TimeReceived TimeBloodVenipuncture / Unknown 05/10/2025 12:28 AM EDT05/10/2025 12:46 AM EDT Narrative Authorizing ProviderResult TypeResult StatusJason A Labroo DPMHEMATOLOGY ORDERABLESFinal ResultPerforming OrganizationAddressCity/State/ZIP CodePhone Number [facility] [address] [address] * US ABDOMEN RUQ/LIVER/GB (05/09/2025 7:21 AM [...] 2. Gallstones without cholecystitis. Authorizing ProviderResult TypeResult StatusJose Manuel Pineda MDUS ORDERABLESFinal Result * HEPATITIS BATTERY, CHRONIC (05/09/2025 6:39 AM EDT)ComponentValueRef RangeTest MethodAnalysis TimePerformed AtPathologist SignatureHepatitis B Surface Ag VrngfudwKwrgtrxj43/12/2025 11:02 AM [facility] LABORATORYHep B Surface ZqJohpfojqPxrnfcue77/12/2025 11:02 AM [facility] LABORATORYHep B Core Ab,Total (IgG+IgM)Negative Zzurmpky56/12/2025 11:02 AM [facility] Hepatitis C RexjrtvaJeojpruhEamiooek92/12/2025 11:02 AM [facility]IN[facility] LABORATORYSpecimen (Source)Anatomical Location / Laterality Collection Method / VolumeCollection TimeReceived TimeBloodVenipuncture / Jaijihb1505/09/2025 6:39 AM EDT05/09/2025 8:55 AM EDT Narrative Authorizing ProviderResult TypeResult StatusAndglen Pineda MD IMMUNOLOGY ORDERABLESFinal ResultPerforming OrganizationAddressCity/State/ZIP CodePhone Number [facility] [address] [address] * (ABNORMAL) PT,INR,PTT (05/09/2025 3:37 AM EDT)ComponentValueRef RangeTest MethodAnalysis TimePerformed AtPathologist NidbckvbiPH51.4(H)11.9 - 14.2 sec 05/09/2025 4:36 AM [facility] CLIN[facility] LABORATORYINR1.10.9 - 1. 4:36 AM [facility] LFHGSTUNKMLUO70.6 (L)24.0 - 34.3 sec05/09/2025 4:36 AM [facility] LABORATORYComment:Specimen integrity checked.Specimen (Source)Anatomical Location / LateralityCollection Method / VolumeCollection TimeReceived Time BloodVenipuncture / Sxppeii7805/09/2025 3:37 AM EDT05/09/2025 3:56 AM EDT Narrative Authorizing ProviderResult TypeResult StatusAndglen Pineda MD COAGULATIONFinal ResultPerforming OrganizationAddressCity/State/ZIP CodePhone Number [facility] [address] [address] * CALCIUM (05/09/2025 3:37 AM EDT)ComponentValueRef RangeTest MethodAnalysis TimePerformed AtPathologist SignatureCalcium9.18.6 - 10.5 mg/dL05/09/2025 4:24 AM [facility] LABORATORYSpecimen (Source)Anatomical Location / LateralityCollection Method / VolumeCollection TimeReceived Time BloodVenipuncture / Pksxdsy4205/09/2025 3:37 AM EDT05/09/2025 3:55 AM EDT Narrative Authorizing ProviderResult TypeResult StatusAndglen Pineda MD CHEMISTRY ORDERABLESFinal ResultPerforming OrganizationAddressCity/State/ZIP CodePhone Number [facility] [address] [address] * CHEM 7 (LYTES,BUN,CREA,GLUC) (05/09/2025 3:37 AM EDT)ComponentValueRef Range Test MethodAnalysis TimePerformed AtPathologist ItprfadfaRtjfhb013886 - 145 mmol/L05/09/2025 4:24 AM [facility] Potassium4.23.5 - 5.0 mmol/L05/09/2025 4:24 AM [facility] QKBFAAUWDEGxqdtqqc86863 - 108 mmol/L05/09/2025 4:24 AM [facility] TOLMBRUFOWXT72885 - 31 mmol/L05/09/2025 4:24 AM [facility] TRMSKJOIRGDjkncqn689Eejnokxwvj: 70-179 mg/dL; Fastin-99 mg/dL05/09/2025 4:24 AM [facility] HVTNSJYRTVHQV850 - 25 mg/dL05/09/2025 4:24 AM [facility] LABORATORYCreatinine0.920.70 - 1.30 mg/dL05/09/2025 4:24 AM [facility] LABORATORYBun/Crea Veqrc2588/12/2025 4:24 AM [facility] LABORATORYOsmolality (Calculated)810000 - 305 mOsm/kg05/09/2025 4:24 AM [facility] LABORATORYAnion Vhc852 - 17 mmol/L05/09/2025 4:24 AM [facility] LABORATORYeGFR, CKD-EPI, Male81>=60 mL/min/1.91d90505/09/2025 4:24 AM [facility] LABORATORYComment:Reported eGFR is based on the CKD-EPI 2020 equation using creatinine, age, and sex.Specimen (Source)Anatomical Location / LateralityCollection Method / VolumeCollection TimeReceived TimeBloodVenipuncture / Gtecwtt6305/09/2025 3:37 AM EDT05/09/2025 3:55 AM EDT Narrative Authorizing ProviderResult TypeResult StatusAndglen Pineda MD CHEMISTRY ORDERABLESFinal ResultPerforming OrganizationAddressCity/State/ZIP CodePhone Number [facility] [address] [address] * PHOSPHATE, INORGANIC (05/09/2025 3:37 AM EDT)ComponentValueRef RangeTest MethodAnalysis TimePerformed AtPathologist SignaturePhosphorous3.22.2 - 4.6 mg/dL05/09/2025 4:24 AM [facility] Specimen (Source)Anatomical Location / LateralityCollection Method / Volume Collection TimeReceived TimeBloodVenipuncture / Taxdiaj5405/09/2025 3:37 AM EDT 05/09/2025 3:55 AM EDT Narrative Authorizing ProviderResult TypeResult StatusJose Manuel Pineda MD CHEMISTRY ORDERABLESFinal ResultPerforming OrganizationAddressCity/State/ZIP CodePhone Number [facility] [address] [address] * MAGNESIUM (05/09/2025 3:37 AM EDT)ComponentValueRef RangeTest MethodAnalysis TimePerformed AtPathologist SignatureMagnesium2.01.6 - 2.6 mg/dL05/09/2025 4:24 AM EDT[facility] CLINICAL LABORATORYSpecimen (Source) Anatomical Location / LateralityCollection Method / VolumeCollection Time Received TimeBloodVenipuncture / Hxqsazk6505/09/2025 3:37 AM EDT05/09/2025 3:55 AM EDT Narrative Authorizing ProviderResult TypeResult StatusJose Manuel Pineda MD CHEMISTRY ORDERABLESFinal ResultPerforming OrganizationAddressCity/State/ZIP CodePhone Number [facility] [address] [address] * XR CHEST (OUTSIDE IMAGE) (05/07/2025)Specimen (Source)Anatomical Location / LateralityCollection Method / VolumeCollection TimeReceived Time05/07/2025 Narrative RADIOLOGY - 05/09/2025 3:06 PM EDT Outside Imaging Study for Support of Clinical Care. This study was sent from an outside facility to [facility] for support of clinical care of the patient within the [facility]. Procedure Note [facility] Outside Orders, External Images - 05/09/2025 Outside Imaging Study for Support of Clinical Care. This study was sentfrom an outside facility to [facility] for support of clinical care [...] was sent from an outside facility to [facility] for support of clinical care of the patient within the [facility]. Procedure Note [facility] Outside Orders, External Images - 05/09/2025 Outside Imaging Study for Support of Clinical Care. This study was sentfrom an outside facility to [facility] for support of clinical care of thepatient within the [facility]. Authorizing ProviderResult TypeResult StatusMegarry ORTIZ ORDERABLESFinal ResultPerforming OrganizationAddressCity/State/ZIP CodePhone Number RADIOLOGY from Last 3 Months Insurance Advance Directives For more information, please contact: [phone] (7:30 AM - 6PM [facility], Monday-Monday) TypeDate RecordedPatient RepresentativeExplanationHealthCare Power of Stage Producer 10/08/2018 * Full Code (Latest Code Status on File) Date ActivatedDate InactivatedComments05/09/2025 4:40 AM * Full Code Date ActivatedDate DlckxkogufgCnrqehab95/18/2021 2:40 PM05/09/2025 4:40 AM * Full Code Date ActivatedDate InactivatedComments09/03/2018 11:29 AM07/15/2021 2:40 PM * Full Code Date ActivatedDate InactivatedComments09/01/2011 7:48 AM09/04/2011 4:13 PM NameRelationshipHealthcare Agent RelationshipCommunicationJudy Ann MarshallMimbres [facility] Health [facility] Agent* Care Teams Team MemberRelationshipSpecialtyStart DateEnd Date Nikko Bird MD [address] [place] [address] PCP - GeneralFamily Rvyhevoq31/4/18
--- OUTSIDE RECORDS SUMMARY | 2025-07-09 10:49 | XMS_ITS | Clinical Summary ---
Author Organization [facility] Address [address] [place] [address] Care Team Providers Care Motor Setter Name Role Phone Nikko Lovelace MD Unavailable Nikko Lovelace MD Primary Care Provider [phone] Elaine Saab LPN Unavailable Allergies Active AllergyReactionsCriticalityNoted CvchAzhwbxwqTutzydhjfdqAwrqggg20/13/2023 GabapentinGI hewadffxysn35/18/5770Jrxuomibpn85/05/2025 Other Reaction(s): Weakness Medications MedicationSigDispense QuantityRefillsLast FilledStart [...] if needed for chest pain 90 tablet 1085Active rivaroxaban (Xarelto) 2.5 MG tablet Indications:Paroxysmal atrial fibrillation (HCC)TAKE 1 TABLET TWICE DAILY 180 tablet 3085Active metoprolol tartrate (Lopressor) 50 MG tablet Indications:Benign [...] 17 g by mouth in the morning.5Active Fjcpzud-Tigaihvbpdt-Dnjodjxynd (Breztri Aerosphere) 160-9-4.8 MCG/ACT aerosol Indications:Pneumonia due to infectious organism, unspecified laterality, unspecified part of lungInhale 1 puff in the morning and at noon 18 g 5Active Menthol-Zinc Oxide (Calmoseptine) 0.44-20.6 % ointment Indications: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HCC)Apply 1 Application topically every 6 (six) hours if needed (Barrier Cream) 100 g 5Active tamsulosin (Flomax) 0.4 MG 24 hr capsule Indications:History of prostate cancer,Urinary hesitancyTAKE 1 CAPSULE BY MOUTH EVERY MORNING AND TAKE 1 CAPSULE BY MOUTH AT BEDTIME 180 capsule 5Active Menthol-Zinc Oxide (Calmoseptine) 0.44-20.6 % ointment Indications: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HCC)Apply 1 Application topically every 6 (six) hours if needed (Barrier Cream) 100 g 308//Discontinued(Reorder) tamsulosin (Flomax) 0.4 MG 24 hr capsule Indications:History of prostate cancer,Urinary hesitancyTake 1 capsule (0.4 mg) by mouth in the morning and 1 capsule (0.4 mg) before bedtime. 200 capsule Discontinued levoFLOXacin (Levaquin) 500 MG tablet Indications:Abscess of lower lobe of left lung with pneumonia (HCC)Take 1 tablet (500 mg) by mouth Daily for 14 days 14 tablet Expired oxyCODONE-acetaminophen (Percocet) 5-325 MG tablet Indications:PVD (peripheral vascular disease) with claudicationTake 1 tablet by mouth every 6 (six) hours if needed for severe pain or moderate pain 120 tablet Expired ciprofloxacin-dexAMETHasone (CiproDEX) otic suspension Indications:Acute eczematoid otitis externa of right earAdminister 4 drops into affected ear(s) in the morning and 4 drops before bedtime. Do all this for 7 days. 7.5 mL /Expired Active Problems ProblemNoted DateDiagnosed DateAcute eczematoid otitis externa of right ear 06/10/2025Rhinovirus vcutalihr23/23/7649Pefyof50/12/9189Bqnwgxilxm21/12/2025 Opioid dependence, iotlbjzwdudza78/05/2025 Overview (05/02/2025): Noted by [facility] last documented on [id number] Assessment & Plan [...] Ischemic toe ulcer, right, with fat layer xtakqef2604/14/2025 Assessment & Plan (04/14/2025 1:37 PM EDT): Needs to finish antibiotic and needs follow up with podiatry Osteomyelitis of right foot04/14/2025 Assessment & Plan (04/14/2025 1:45 PM EDT): Will get stat MRI Will do stat Podiatry referral If worsens go to ER Currently no drainage Carotid stenosis, asymptomatic, lzldtxiih52/18/2025Unspecified chronic kxkqookoak46/10/2025Acquired absence of left foot11/04/2024 Assessment & Plan (11/04/2024 11:22 AM EDT): Has prosthesis 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5Bronchiectasis, uncomplicated 11/04/2024 Assessment & Plan (11/04/2024 11:25 AM EDT): stable Acquired absence of left leg below knee07/22/2024 Assessment & Plan (11/04/2024 11:23 AM EDT): S/p amputation with prosthesis Other complications of amputation stump07/22/2024 Assessment & Plan (11/04/2024 11:22 AM EDT): resolved Hx of CABG05/28/2024Secondary hypercoagulable state ([facility])4Pulmonary hypertension, vmhfxvvneex04/30/2024 Assessment & Plan (11/04/2024 11:25 AM EDT): Has water pills From COPD Other thrombophilia ([facility])03/21/2024 Assessment & Plan (03/21/2024 3:10 PM EDT): Has blood thinner Medicare annual wellness visit, tyfwvcaeld20/10/2023 Assessment & Plan (06/10/2025 10:25 AM EDT): [...] do 6 month regular US Abnormal radiographic dkobagjzjow09/13/2023hronic obstructive pulmonary disease, vprkoktcqzp91/13/2023 Assessment & Plan (11/04/2024 11:25 AM EDT): From second hand smoke Chronic diastolic (congestive) heart cepbrem6204/09/2023 Assessment & Plan (11/04/2024 11:25 AM EDT): Foot swells Ozlrcivip48/13/2023sthmatic /13/2023therosclerotic heart disease of [place] coronary artery without angina kunlmedf18/13/2023arotid artery bahbjcpx61/13/2023 Assessment & Plan (06/06/2023 11:20 AM EDT): Getting Carotid dopplers Chronic kidney disease due to adtwvypobwus99/13/2023Slow transit constipation 04/09/2023Elevated erythrocyte sedimentation rate04/09/2023Left sciatic nerve pain04/09/20236716Luzuiidsng41/13/2023Other chronic pain04/09/2023 Assessment & Plan (08/12/2024 1:41 [...] for this patient. Paresthesia of skin04/09/2023aroxysmal atrial hstlbznsynix22/13/2023VD (peripheral vascular disease) with ognhsepitgfq34/13/2023 Assessment & Plan (04/14/2025 1:37 PM EDT): [...] Pain meds effective Pneumonia due to infectious kxgrjxee56/13/2023 Assessment & Plan (05/20/2025 1:21 PM EDT): Rinse out mouth with water after use Needs CT scan after a month Polymyalgia rheumatica ([facility])3Primary osteoarthritis of right hip 04/09/2023Seasonal allergic ukrxjfuw88/13/2023 Assessment & Plan (11/04/2024 11:23 AM EDT): [...] watch for any sugar elevations. Solitary pulmonary aloxvg8604/09/2023Stage 3a chronic kidney xhtretn3104/09/2023 Acquired absence of unspecified foot04/09/2023 Assessment & Plan (11/04/2024 11:22 AM EDT): S/p amputation but has prosthesis Assessment & Plan (02/05/2024 3:03 PM EDT): Sees Vascular doctor this summer in March Oinzvskq26/25/2023Lumbosacral spondylosis without lkswmkykkb22/25/2023 Assessment & Plan (04/11/2023 11:31 AM EDT): [...] was reviewed for this patient. Mitral valve mafnqzozzkexp25/27/9882Ycjqqyr14/27/2023osterior tibial tendinitis of right leg11/07/2022Thoracic aortic aneurysm without cgloeql71/18/2022S/P total hip bfpwupwfiggv52/18/2021ortic valve woumeabgsdqvr66/07/2021lass 1 obesity with body mass index (BMI) [...] for a goal BMI <30. Atherosclerosis of [place] arteries of extremities with rest pain, unspecified rxhzerazw45/08/2019 Overview (06/05/2023): Last Assessment & Plan: Pt s/p LLE angiogram with Dr Hahn who feels that the pt has no further endovascular options. He has consulted Dr. Millan for a possible tibial bypass. Pt s/p LLE critical limb ischemia Catron class 4 rest pain with distal discoloration to histoes. Pt is s/p L pop angioplasty with stent placement 08/09 at [facility] in [place], [place]. Pt was placed on Xarelto and [...] bypass. Pt s/p LLE critical limb ischemia Catron class 4 rest pain with distal discoloration to his toes. Pt is s/p L pop angioplasty with stent placement 08/09 at [facility] in [place], [place]. Pt was placed on Xarelto and [...] long as possible Claudication of right lower mvfsupeza03/12/2018 Overview (06/05/2023): Added automatically from request for surgery [id number] Last Assessment & Plan: Heparin drip initiated, [...] management Added automatically from request for surgery [id number] Last Assessment & Plan: Heparin drip initiated, pharmacy to manage per protocol ASA and Plavix started Cardiovascular surgeon consulted PT/OT evaluation and treatment Monitor labs, VS and telemetry as ordered Pain management Last Assessment & Plan: S/P Left Lower Extremity Angiogram with ballooning and stent 08/09/2018 Post op orders per surgeon DVT/GI prophylaxis Monitor labs, VS and telemetry as ordered Pain management Gipjghqrm97/04/2016Disorder of lipid naarxvhywn34/27/5713Ajwfkqqnn00/14/2014 Chest pain in adult08/30/2013Mixed auipzvlkzajxni71/03/7107Axelrdr85/03/2014 Preinfarction xotqxsmi92/03/2014Malignant neoplasm of siuwopnt08/25/2011 Assessment & Plan (11/04/2024 11:24 AM EDT): No longer sees urology. S/p seeds implant in 2009 Assessment & Plan (03/21/2024 3:10 PM EDT): Seen in November by Urologist and released from Care Benign essential mppdkiticaha90/07/2008 Assessment & Plan (03/21/2024 3:04 PM EDT): [...] the importance of taking them as prescribed. [employer] diet handouts Assessment & Plan (06/06/2023 11:20 [...] prescribed. [employer]ASH diet handouts Chronic ischemic heart lliksma6107/04/2008Impotence of organic bsdmlu9707/04/2008 Resolved Problems ProblemNoted DateDiagnosed DateResolved DateAcute cystitis without hematuria Assessment & Plan (03/21/2024 3:09 PM EDT): Add Probiotic to help replenish the good bacteria that are destroyed by the Antibiotics Florastor Florajen Align or try Activia in Yogurt Probiotics reduce the risk of antibiotic induced diarrhea Flu vaccine needNausea1cute exacerbation of chronic obstructive pulmonary vnzqfxs17ataract04/09/2023 04/26/20246815Fgpgnrqhgecs62Sinusitis Assessment & Plan (09/19/2023 10:53 AM EST): [...] Dr. Messina as needed if symptoms persist Xjveeblpwm14Gangrene of left foot Danaveonyrfggevqup54/09/201908/30/2024 Overview (06/05/2023): Last Assessment & Plan: Patient [...] with PCP for further treatment options Pure uruxsuahldxrzjnqhxjz55/14/201808/30/2024 Overview (06/05/2023): Last Assessment & Plan: Resume home medications Follow up after discharged with PCP Last Assessment & Plan: Resume home medications Follow up after discharged with PCP Njmdxynuc85bdominal painvascular necrosis of bone of hip Overview (06/05/2023): Right hip Right hip Herpes gikwuf88ain of left lower vtxppdfez96/08/2012 04/26/2024 Overview (06/05/2023): Last Assessment & Plan: -Presented to [facility] 09/04/2018 as a transfer from [place] for second opinion regarding left lower extremity [...] in pain -Reports pain is uncontrolled with PAINT SPRAYER SANDBLASTER Dilaudid pump, and pain does not decrease [...] questions Last Assessment & Plan: -Presented to [facility] 09/04/2018 as a transfer from [place] for second opinion regarding left lower extremity [...] in pain -Reports pain is uncontrolled with PAINT SPRAYER SANDBLASTER Dilaudid pump, and pain does not decrease [...] RN -Please call with questions Encounters DateTypeDepartmentCare UnjvOhsjkentigg81/30/2025Refill [facility] [address] [place] [address] Nikko Lovelace MD History of prostate cancer; Urinary /27/2025Patient Outreach [facility] [address] [place] [address] Elaine Saab LPN 06/18/2025linisync Result Encounter [facility] External Department Unsolicited Provider, Generic External Data 06/12/2025bstract [facility] [address] [place] [address] Nikko Lovelace MD 06/12/2025bstract [facility] [address] [place] [address] Nikko Lovelace MD 06/11/2025Patient Outreach [facility] [address] [place] [address] Elaine Saab LPN 06/10/2025 10:30 AM EDTOffice Visit [facility] [address] [place] [address] Nikko Lovelace MD Routine general medical examination at [facility] facility (Primary Dx); Screening for lipid disorders; Medicare annual wellness visit, subsequent; 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HCC); Encounter for immunization; Opioid dependence, uncomplicated (HCC); Acute eczematoid otitis externa of right ear06/10/2025amboo flowsheet [facility] [address] [place] [address] Nikko Lovelace MD 06/10/20254240Dyreyv17/07/2025Patient Outreach [facility] [address] [place] [address] Elaine Saab LPN 05/29/2025Refill [facility] [address] [place] [address] Nikko Lovelace MD PVD (peripheral vascular disease) with mgqxrdmtagls03/29/2025[facility] [address] [place] [address] Elaine Saab MANAGER SIGN 05/26/2025Patient Outreach [facility] [address] [place] [address] SaabElaine, [facility] 05/21/2025Patient Outreach [facility] [address] [place] [address] SaabElaine, [facility] 05/20/2025 1:00 PM EDTOffice Visit [facility] [address] [place] [address] Nikko Lovelace MD Pneumonia due to infectious organism, unspecified laterality, unspecified part of lung (Primary Dx)05/20/20258477Ryhkpg29/17/2025[facility] [address] [place] [address] SaabElaine, [facility] 05/14/2025bstract [facility] [address] [place] [address] Nikko Lovelace MD 05/12/2025bstract [facility] [address] [place] [address] Nikko Lovelace MD 05/06/2025bstract [facility] [address] [place] [address] Nikko Lovelace MD 05/06/2025bstract [facility] [address] [place] [address] Nikko Lovelace MD 05/05/2025Patient Outreach [facility] [address] [place] [address] Elaine Saab LPN 05/02/2025 1:00 PM EDTOffice Visit [facility] [address] [place] [address] Zoë King PA Hemoptysis (Primary Dx); Gafwwyi0205/02/2025amboo flowsheet [facility] [address] [place] [address] Zoë King PA 05/02/20255069Mrwiez14/04/2025Patient Outreach [facility] [address] [place] [address] Elaine Saab LPN 05/01/2025bstract [facility] [address] [place] [address] Elaine Saab LPN 04/30/2025linisync Result Encounter [facility] External Department Unsolicited Provider, Generic External Data 04/29/2025[facility] [address] [place] [address] Nikko Lovelace MD Benign essential forkmcjgaoqt03/02/2025Telephone [facility] [address] [place] [phone] Sheree Murrell Medication Question (Has a terrible cold and runny nose wanted to know if you could zuly in a z-packfor him.)04/21/2025Telephone [facility] [address] [place] [address] Elaine Saab LPN 04/21/2025[facility] [address] [place] [address] Elaine Saab LPN 04/16/2025linisync Result Encounter [facility] External Department Unsolicited Provider, Generic External Data 04/15/2025 8:00 AM EDTAncillary Procedure [facility] [address] [place] [address] Osteomyelitis of right foot, unspecified type (HCC)04/15/2025linisync Result Encounter [facility] External Department Unsolicited Provider, Generic External Data 04/15/2025Patient Outreach [facility] [address] [place] [address] Elaine Saab LPN 04/15/2025Results Follow-Up [facility] [address] [place] [address] Nikko Lovelace MD MR foot right wo IV gmzchaqd55/19/4930Mxaiqd34/18/2025 1:30 PM EDTOffice Visit [facility] [address] [place] [address] Nikko Lovelace MD PVD (peripheral vascular disease) with claudication (Primary Dx); Ischemic toe ulcer, right, with 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); Osteomyelitis of right foot, unspecified type (HCC)04/14/20251559Xqvlrs00/18/2025 Patient Outreach [facility] [address] [place] [address] Elaine Saab LPN 04/10/2025bstract [facility] [address] [place] [address] Emmanuel Gonzalez DPM 04/10/2025Telephone [facility] [address] [place] [address] Zoë King PA posible med klcyolkqibh77/14/2025bstract [facility] [address] [place] [address] Nikko Lovelace MD 04/09/2025bstract [facility] [address] [place] [address] Nikko Lovelace MD 04/09/2025Telephone [facility] [address] [place] [address] Zoë King PA 04/09/2025Refill [address] [place] [address] Zoë King PA Paroxysmal atrial fibrillation (HCC)04/08/2025 11:30 AM EDTOffice Visit [facility] [address] [place] [address] Zoë King PA PVD (peripheral vascular disease) with claudication (Primary Dx); Acquired absence of left foot (HCC); Ischemic toe ulcer, right, with 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)04/08/2025External Result Encounter [facility] External Department Unsolicited Zoë King PA 04/08/2025bstract [facility] [place] [address] Nikko Lovelace MD 04/08/2025amboo flowsheet [facility] [address] [place] [address] Zoë King PA 04/08/2025Travelfrom Last 3 Months Immunizations ImmunizationAdministration DatesNext DueInfluenza, High Dose Seasonal, Preservative Free06/10/2025,06/21/2021,06/02/2020,06/06/2018,05/18/2015 Influenza, High-dose Seasonal, Quadrivalent, Preservative Free08/12/2024, 06/06/2023,05/31/2022,06/06/2018Influenza, injectable, jypmwazcsins92/25/2017 Influenza, injectable, quadrivalent, preservative free07/11/2016Influenza, seasonal, bbfefvemtc76/01/2020Influenza, trivalent, duiogfnlky94/22/2019 Pneumococcal Conjugate PCV 1310,05/18/2015Pneumococcal Polysaccharide JFOV44843260Blpp28/03/2020 Family History Medical HistoryRelationNameCommentsStrokeOtherFamily historyRelationNameStatus CommentsFatherDeceasedMotherDeceasedOtherFamily historySiblingDeceasedSister Deceaseddeceased from covid Social History Tobacco UseTypesPacks/DayYears UsedDateSmoking Tobacco: NeverSmokeless Tobacco: Never Tobacco Cessation:Counseling Given: Yes Alcohol UseStandard Drinks/WeekCommentsNot Currently0 (1 standard drink = 0.6 oz pure alcohol)Coffee 1-2 cups per bndL6070 Health LiteracyAnswerDate RecordedHow often do you need [...] at all 06/21/2024HQ-2AnswerDate RecordedPatient Health Questionnaire-2 Score0 06/10/2025[facility] [place] [facility] - Occupational Stress QuestionnaireAnswerDate [...] or living in a senior living (including now)?No06/21/2024Sex and Gender InformationValueDate RecordedSex Assigned at BirthNot on fileLegal IpnHzld4611/09/2022 7:18 PM EDT Gender IdentityNot on fileSexual OrientationNot on file Last Filed Vital Signs Vital SignReadingTime TakenCommentsBlood Jvqamekc342/6806/10/2025 10:17 AM EDT Ccqct194506/10/2025 10:17 AM BFRHawvpdzvdha02 ??C (98.6 ??F)05/02/2025 1:04 PM EDT Respiratory Gmip368105/02/2025 1:04 PM EDTOxygen Uafbgppley29%06/10/2025 10:17 AM EDTInhaled Oxygen Concentration--Ogmwuu452 kg (243 lb)06/10/2025 10:17 AM EDT Tsprxo133 cm (6' 2 )06/10/2025 10:17 AM EDTBody Mass Index31. 10:17 AM EDT Plan of Treatment Health MaintenanceDue DateLast DoneCommentsCOVID-19 Vaccine ( season) 5009/09/2021, 09/09/2021, 10/28/2020, Additional history existsMedicare Annual Wellness (AWV)61, 04/26/2024, 06/06/2023neumococcal Vaccine: 65+ EfxgzHqiqpzpuy61/11/2021, 05/28/2020, 05/18/2015Influenza Vaccine Spotkzsvx95/14/2025, 08/12/2024, 06/06/2023, Additional history exists Procedures Procedure NamePriorityDate/TimeAssociated DiagnosisCommentsLIPID PANELRoutine 06/23/2025 8:46 AM EDT Screening for lipid disorders Medicare annual wellness visit, subsequent ANAEROBIC LVPFZYHCoweetq37/22/2025 11:10 AM EDT FUNGUS VOITPAlztefd98/22/2025 11:10 AM EDT FUNGUS (MYCOLOGY) ZIODESYLqxaicc13/22/2025 11:10 AM EDTGRAM STAIN RESULTRoutine 06/18/2025 11:10 AM EDT AEROBIC PYJESCXIvxjixj45/22/2025 11:10 AM EDT ACID FAST DSHEWOLLjkhixz33/22/2025 11:10 AM EDTACID FAST IBVXUTubdull95/22/2025 11:10 AM EDT AFB SPECIMEN URGHUOUDANLfpyjfx93/22/2025 11:10 AM EDT MHPT DWGMZMHYODUFIjivhpg77/03/2025 11:00 AM EDT ALL SED UZINThsfukv85/03/2025 11:00 AM EDT ALL CBC WITH AUTO BJJLIwsrrco40/03/2025 11:00 AM EDT ALL C REACTIVE XMQEPPMYghicqz68/03/2025 11:00 AM EDT ALL BASIC METABOLIC ZZMNMMwultbc11/03/2025 11:00 AM EDT XR FOOT RT MIN 3V04/16/2025 12:49 PM EDT ALL C REACTIVE YKCGGYDGffbtiu87/19/2025 1:47 PM EDT ALL BASIC METABOLIC HNIZJSlyzzpp58/19/2025 1:47 PM EDT ALL SED QQCWVrixsll85/19/2025 1:47 PM EDT ALL CBC WITH AUTO UXYFZnwzmvp82/19/2025 1:47 PM EDT MR FOOT RIGHT WO IV HKKXOZUCTezdjnt97/19/2025 8:44 AM EDT Osteomyelitis of right foot, unspecified type (HCC) JEIVLlzgmku27/12/2025 12:00 AM EDT HERPES SIMPLEX VIRUS 3Kiptaqz78/12/2025 12:00 AM EDT from Last 3 Months Results * Lipid panel (06/23/2025 8:46 AM EDT)ComponentValueRef RangeTest MethodAnalysis TimePerformed AtPathologist SignatureCHOLESTEROL, EMQPN572<200 mg/dLQUESTHDL KMLKIRWMTIX34> OR = 40 mg/yHLPXFAMCSHSVHXNCWFL59<150 mg/dLQUESTLDL CHOLESTEROL 61mg/dL (calc)QUESTComment: Reference range: <100 Desirable range <100 mg/dL for primary prevention; <70 mg/dL for patients with CHD or diabetic patients with > or = 2 CHD risk factors. LDL-C is now calculated using the José Manuel-Aguero calculation, which is a validated novel method providing better accuracy than the Friedewald equation in the estimation of LDL-C. José Manuel SS et al. SHANTAL. 2013;310(19): 6479-8668 (http://education.LiveLoop.FRUCT/faq/BYU415) CHOL/HDLC RATIO2.9<5.0 (calc)QUESTNON HDL HLWBSWXTQZJ30<130 mg/dL (calc)QUEST Comment: For patients with diabetes plus 1 major ASCVD risk factor, treating to a non-HDL-C goal of <100 mg/dL (LDL-C of <70 mg/dL) is considered a therapeutic option. Specimen (Source)Anatomical Location / LateralityCollection Method / Volume Collection TimeReceived TimeBloodVenous blood specimen / Tmjokzd4006/23/2025 8:46 AM EDT1 3:23 PM EDT Narrative [facility] - 06/23/2025 10:42 PM EDT FASTING:YES FASTING: YES Resulting Agency Comment Performing Organization Information ?Site ID: QPT ?Name: [facility] ?Address: [address] [place] [id number] ?Director: Gene Liang MD Authorizing ProviderResult TypeResult StatusNikko Lovelace MDLAB BLOOD ORDERABLES Final ResultPerforming OrganizationAddressty/State/ZIP CodePhone Number [facility] * ANAEROBIC CULTURE (06/18/2025 11:10 AM EDT)ComponentValueRef RangeTest Method Analysis TimePerformed AtPathologist SignatureANAEROBIC CULTURE ??Anaerobic Culture TBHANAEROBIC CULTURENo anaerobic growth in 72 hours.TBHSpecimen (Source) Anatomical Location / LateralityCollection Method / VolumeCollection Time Received Time06/18/2025 11:10 AM EDT1 1:19 PM EDT Narrative [facility] - 06/25/2025 1:08 PM EDT Authorizing ProviderResult TypeResult StatusGeneric External Data ProviderLAB BLOOD ORDERABLESFinal ResultPerforming OrganizationAddressCity/State/ZIP Code Phone Number [facility] * (ABNORMAL) AEROBIC CULTURE (06/18/2025 11:10 AM EDT)ComponentValueRef Range Test MethodAnalysis TimePerformed AtPathologist SignatureAEROBIC CULTURE ??Aerobic Culture WILL FOLLOW TBHAEROBIC CULTUREOrganism: Staphylococcus aureus :TBHAEROBIC CULTURE*ABNORMAL* TBHAEROBIC CULTURELight growthTBHAEROBIC CULTUREOrganism: Gram negative aidan :[facility] AEROBIC CULTURE*ABNORMAL*TBHAEROBIC CULTURELight growthTBHAEROBIC CULTUREGram negative rodTBHAEROBIC CULTUREStaphylococcus aureusTBHAEROBIC CULTUREOrganism: Methicillin Resis Staph Aureus :TBHAEROBIC CULTURE*ABNORMAL*TBHAEROBIC CULTURE Methicillin - resistantTBHAEROBIC CULTUREBased on resistance to oxacillin this isolate would beTBHAEROBIC CULTUREresistant to all currently available beta-lactamTBHAEROBIC CULTUREantimicrobial agents, with the exception of the newerTBHAEROBIC CULTUREcephalosporins with anti-MRSA activity, such asTBHAEROBIC CULTURECeftarolineTBHAEROBIC CULTURELight growthTBHAEROBIC CULTUREOrganism: Proteus mirabilis. :TBHAEROBIC CULTURE*ABNORMAL*TBHAEROBIC CULTURELight growth TBHAEROBIC CULTURETBHAEROBIC CULTUREMixed bacterial cameron.TBHAEROBIC CULTURE Light growthTBHAEROBIC CULTUREMethicillin Resis Staph AureusTBHAEROBIC CULTURE Proteus mirabilis.TBHAEROBIC CULTURE ??O:GNR Isolated TBHAEROBIC CULTURE ??O:MRSA Isolated TBHAEROBIC CULTURE ??O:PMMS Isolated TBHAEROBIC CULTURE ??O:STAAUR Isolated TBHAEROBIC CULTURE Organism: ??2.2 Antibiotic ? Interpretation ? PETER ? Status TBHAEROBIC CULTURE ??Ciprofloxacin ? Ciprofloxacin ?S ?F (S)TBHAEROBIC CULTURE ??Erythromycin ? Erythromycin ? R ?F (R)TBHAEROBIC CULTURE ??Gentamicin ? Gentamicin ? S ?F (S)TBHAEROBIC CULTURE ??Levofloxacin ? Levofloxacin ? S ?F (S)TBHAEROBIC CULTURE ??Linezolid ? Linezolid ?S ?F (S)TBHAEROBIC CULTURE ??Oxacillin ? Oxacillin ?R ?F (R)TBHAEROBIC CULTURE ??Penicillin ? Penicillin ? R ?F (R)TBHAEROBIC CULTURE ??Rifampin ? Rifampin ? S ?F (S)TBHAEROBIC CULTURE ??Tetracycline ? Tetracycline ? S ?F (S)TBHAEROBIC CULTURE ??Trimethoprim/Sulfamethoxazole ? Trimethoprim/Sulfamethoxazole ?S ?F (S)TBHAEROBIC CULTURE ??Vancomycin ? Vancomycin ? S ?F (S)TBHAEROBIC CULTURE ??Clindamycin ? Clindamycin ?S ?F (S)TBHAEROBIC CULTURE Organism: ??2.3 Antibiotic ? Interpretation ? PETER ? Status TBHAEROBIC CULTURE ??AMOXICILLIN/CLAVULANIC ACID ? AMOXICILLIN/CLAVULANIC ACID ?S ?F (S)TBHAEROBIC CULTURE ??Ampicillin ? Ampicillin ? S ?F (S)TBHAEROBIC CULTURE ??Cefazolin ? Cefazolin ?I ?F (I)TBHAEROBIC CULTURE ??Cefepime ? Cefepime ? S ?F (S)TBHAEROBIC CULTURE ??Cefoxitin ? Cefoxitin ?S ?F (S)TBHAEROBIC CULTURE ??Cefpodoxime ? Cefpodoxime ?S ?F (S)TBHAEROBIC CULTURE ??Ceftriaxone ? Ceftriaxone ?S ?F (S)TBHAEROBIC CULTURE ??Ciprofloxacin ? Ciprofloxacin ?S ?F (S)TBHAEROBIC CULTURE ??Ertapenem ? Ertapenem ?S ?F (S)TBHAEROBIC CULTURE ??Gentamicin ? Gentamicin ? S ?F (S)TBHAEROBIC CULTURE ??Levofloxacin ? Levofloxacin ? I ?F (I)TBHAEROBIC CULTURE ??Meropenem ? Meropenem ?S ?F (S)TBHAEROBIC CULTURE ??Tetracycline ? Tetracycline ? R ?F (R)TBHAEROBIC CULTURE ??Tobramycin ? Tobramycin ? S ?F (S)TBHAEROBIC CULTURE ??Trimethoprim/Sulfamethoxazole ? Trimethoprim/Sulfamethoxazole ?S ?F (S)TBHAEROBIC CULTURE ??Piperacillin/Tazobactam ? Piperacillin/Tazobactam ?S ?F (S)TBHSpecimen (Source)Anatomical Location / LateralityCollection Method / VolumeCollection TimeReceived Time06/18/2025 11:10 AM EDT1 1:19 PM EDT Narrative CLINISYNC - 06/25/2025 1:08 PM EDT Authorizing ProviderResult TypeResult StatusGeneric External Data ProviderLAB BLOOD ORDERABLESFinal ResultPerforming OrganizationAddressCity/State/ZIP Code Phone Number [facility] * GRAM STAIN RESULT (06/18/2025 11:10 AM EDT)ComponentValueRef RangeTest Method Analysis TimePerformed AtPathologist SignatureGRAM STAIN RESULT ??Gram Stain Result TBHGRAM STAIN RESULTFew white blood cells.TBHGRAM STAIN RESULTTBHGRAM STAIN RESULTRare gram negative rods.TBHGRAM STAIN RESULTPerformed at: - LabcoSummit Oaks HospitalTBHGRAM STAIN [id number] [place], [place] [address]BVPYAXT STAIN RESULTLab Director: Jasper Jean Baptiste PhD, Phone: [phone] (Source) Anatomical Location / LateralityCollection Method / VolumeCollection Time Received Time06/18/2025 11:10 AM EDT1 1:19 PM EDT Narrative CLINISYNC - 06/25/2025 1:08 PM EDT Authorizing ProviderResult TypeResult StatusGeneric External Data ProviderLAB BLOOD ORDERABLESFinal ResultPerforming OrganizationAddressty/State/ZIP Code Phone Number [facility] * FUNGUS STAIN (06/18/2025 11:10 AM EDT)ComponentValueRef RangeTest Method Analysis TimePerformed AtPathologist SignatureFUNGUS STAIN ??Fungus Stain TBHFUNGUS STAINKOH/Calcofluor preparation: no fungus observed.TBHSpecimen (Source)Anatomical Location / LateralityCollection Method / VolumeCollection TimeReceived Time06/18/2025 11:10 AM EDT1 1:19 PM EDT Narrative CLINISYNC - 06/23/2025 2:08 PM EDT Authorizing ProviderResult TypeResult StatusGeneric External Data ProviderLAB BLOOD ORDERABLESFinal ResultPerforming OrganizationAddressty/State/ZIP Code Phone Number [facility] * ACID FAST SMEAR (06/18/2025 11:10 AM EDT)ComponentValueRef RangeTest Method Analysis TimePerformed AtPathologist SignatureACID FAST SMEAR ??Acid Fast Smear ?Negative TBHSpecimen (Source)Anatomical Location / LateralityCollection Method / Volume Collection TimeReceived Time06/18/2025 11:10 AM EDT1 1:19 PM EDT Narrative CLINISYNC - 06/19/2025 4:09 PM EDT Authorizing ProviderResult TypeResult StatusGeneric External Data ProviderLAB BLOOD ORDERABLESFinal ResultPerforming OrganizationAddressty/State/ZIP Code Phone Number [facility] * AFB SPECIMEN PROCESSING (06/18/2025 11:10 AM EDT)ComponentValueRef RangeTest MethodAnalysis TimePerformed AtPathologist SignatureAFB SPECIMEN PROCESSING ??AFB Specimen Processing TBHAFB SPECIMEN PROCESSINGTissue GrindingTBHSpecimen (Source)Anatomical Location / LateralityCollection Method / VolumeCollection TimeReceived Time06/18/2025 11:10 AM EDT1 1:19 PM EDT Narrative CLINISYNC - 06/19/2025 4:09 PM EDT Authorizing ProviderResult TypeResult StatusGeneric External Data ProviderLAB BLOOD ORDERABLESFinal ResultPerforming OrganizationAddressCity/State/ZIP Code Phone Number [facility] * (ABNORMAL) MHPT DIFFERENTIAL (04/30/2025 11:00 AM EDT)ComponentValueRef Range Test MethodAnalysis TimePerformed AtPathologist SignatureSEGMENTED NEUTROPHILS % SYQFEQ99.043.0 - 75.0TBHLYMPHOCYTES PERCENT VAQPAD05.020.5 - 60.0 %TBH MONOCYTES PERCENT UGAQKI77.0(H)1.7 - 12.0 %TBHEOSINOPHILS PERCENT MNIHEH90.0 (H)0.9 - 7.0 %TBHBASOPHILS PERCENT MANUAL0.0(L)0.2 - [...] Provider CLINISYNCFinal ResultPerforming OrganizationAddressCity/State/ZIP CodePhone Number [facility] * (ABNORMAL) ALL SED RATE (04/30/2025 [...] Data Provider CLINISYNCFinal ResultPerforming OrganizationAddressCity/State/ZIP CodePhone Number [facility] * (ABNORMAL) ALL CBC WITH AUTO [...] - 35.2 g/dLTBHTBH RDW14.811.0 - 15.0 %TBHTBH PAG769382 - 450 10 3/uLTBHTBH MPV9.89.5 - 13.5 fLTBHSpecimen (Source)Anatomical Location / LateralityCollection Method / VolumeCollection TimeReceived Time04/30/2025 11:00 AM EDT04/30/2025 11:01 AM EDT Narrative CLINISYNC - 04/30/2025 1:21 PM EDT Authorizing ProviderResult TypeResult StatusGeneric External Data Provider CLINISYNCEdited Result - FinalPerforming OrganizationAddressCity/State/ZIP Code Phone Number [facility] * (ABNORMAL) ALL C REACTIVE PROTEIN [...] Data Provider CLINISYNCFinal ResultPerforming OrganizationAddressCity/State/ZIP CodePhone Number [facility] * ALL BASIC METABOLIC PANEL (04/30/2025 11:00 AM EDT) Only the most recent of2 resultswithin the time period is included. ComponentValueRef RangeTest MethodAnalysis TimePerformed AtPathologist Signature LLOAIM508442 - 145 mmol/LTBHPOTASSIUM4.83.5 - 5.1 mmol/UQUAIKOWOTXT92579 - 107 mmol/LTBHCARBON PHMXJJU98.921.0 - 32.0 mmol/LTBHANION GAP13.6JTJUBKILYF08885 - 106 mg/dLTBHBLOOD UREA QSUVZALP71.07.0 - 18.0 mg/dLTBHCREATININE1.040.70 - 1.30 mg/dLTBHTBH EGFR-AF ISRAELI>60>=60 mL/min/1.73m 2TBHTBH EGFR-NON AF ISRAELI>60 >=60 mL/min/1.73m 2TBHBUN CREATININE RATIO12.0KRDVSCHGPN7.38.5 - 10.1 mg/dLTBH Specimen (Source)Anatomical Location / LateralityCollection Method / Volume Collection TimeReceived Time04/30/2025 11:00 AM EDT04/30/2025 11:01 AM EDT Narrative CLINISYNC - 04/30/2025 12:11 PM EDT Authorizing ProviderResult TypeResult StatusGeneric External Data Provider CLINISYNCFinal ResultPerforming OrganizationAddressty/State/ZIP CodePhone Number [facility] * XR FOOT RT MIN 3V (04/16/2025 12:49 PM EDT)Anatomical RegionLateralityModality OtherSpecimen (Source)Anatomical Location / LateralityCollection Method / VolumeCollection TimeReceived Time04/16/2025 12:49 PM EDT Narrative 04/16/2025 12:52 PM EDT [facility] ?[address] ? [place] [address] ?XRay Report ? Signed ? Patient: SHERRY,TRISTIN ?MR#: [id number] ?? : 1940 ?Acct:[id number] ?? Age/Sex: 85 / M ?ADM Date: 04/15/25 ?? Loc: RAD ? Attending Dr: Savanna Feliz D.P.M. ? Ordering Physician: Savanna Feliz D.P.M. ?? Date of Service: 04/15/25 ?? Procedure(s): XR foot RT min 3V ?? Accession Number(s): [id number] ? cc: NIKKO LOVELACE ; Savanna Feliz D.P.M. ? [facility] ? [address] [facility] ? [place] [address] ? Patient Name: ?? TRISTIN GRAY ? MRN: [facility]:[id number] ? date: 1940 ?Sex: M ?? Assigned Patient Location: RAD ?? Current Patient Location: WC ?? Accession/Order Number: [id number] ?? Exam Date: 04/16/2025 ??12:46 ?Report Date: [...] Dictation Location: RADIO-PC-20 ? Electronically authenticated by: [id number] ??Y ?? Date: 04/16/2025 ??12:49 ? Dictated By: ?Cristian Rodriguez D.O. ? Signed By: ?04/16/25 1252 ? DD/ 1249 ? TD/TT: ? Home Health Care Physician: Procedure Note Radiology, Radiologist, - 04/16/2025 [place] [address] XRay Report Signed Patient: TRISTIN GRAYMR#: [id number] : 1940cct:[id number] Age/Sex: 85 / MADM Date: 04/15/25 Loc: RAD Attending Dr: Savanna Feliz D.P.M. Ordering Physician: Savanna Feliz D.P.M. Date of Service: 04/15/25 Procedure(s): XR foot RT min 3V Accession Number(s): [id number] cc: NIKKO LOVELACE ; Savanna Feliz D.P.M. The [place] [address] Patient Name: TRISTIN GRAY MRN: [facility]:[id number] date: 1940 Sex: M Assigned Patient Location: [facility] Current Patient Location: Accession/Order Number: [id number] Exam Date: 04/16/2025 12:46 Report Date: 04/16/2025 [...] Rodriguez M.D. 04/16/2025 12:49 PM Dictation Location: [employer] Electronically authenticated by: [id number] Y Date: 2:49 Dictated By: Cristian Rodriguez D.O. Signed By:04/16/25 1252 DD/ 1249 TD/TT: Home Health Care Physician: Authorizing ProviderResult TypeResult StatusGeneric External Data Provider CLINISYNC IMAGINGFinal Result * MR foot right wo [...] Ruiz DO Authorizing ProviderResult TypeResult StatusNikko Lovelace MDIMG MRI PROCEDURES Final Result * (ABNORMAL) MECA (04/08/2025 12:00 AM EDT)ComponentValueRef RangeTest Method Analysis TimePerformed AtPathologist ZvjzrtshtOLVT46.731(A)23.000 - 31.199 ppm 04/09/2025 1:18 PM EDTHealthTrackRx of GreybullMECADetected(A)23.000 - 31.199 ppm04/09/2025 1:18 PM EDTHealthTrackRx of GreybullTET B, TET M23.751 (A)23.000 - 27.778 ppm04/09/2025 1:18 PM EDTHealthTrackRx of GreybullTET B, TET MDetected(A)23.000 - 27.778 ppm04/09/2025 1:18 PM EDTHealthTrackRx of GreybullACINETOBACTER BAUMANNII (ACUTE WOUND)019.961 - 24.689 ppm04/09/2025 1:19 PM EDTHealthTrackRx of GreybullACINETOBACTER BAUMANNII (ACUTE WOUND)Not Cotziyom87.961 - 24.689 ppm04/09/2025 1:19 PM EDTHealthTrackRx of [place] BACTEROIDES FRAGILIS, VULGATUS (ACUTE WOUND)23.270(A)19.961 - 24.689 ppm 04/09/2025 1:18 PM EDTHealthTrackRx of GreybullBACTEROIDES FRAGILIS, VULGATUS (ACUTE WOUND)Detected(A)19.961 - 24.689 ppm04/09/2025 1:18 PM EDT [facility] GreybullCITROBACTER FREUNDII (ACUTE WOUND)019.961 - 24.689 ppm04/09/2025 1:19 PM EDTHealthTrackRx of GreybullCITROBACTER FREUNDII (ACUTE WOUND)Not Gskdnjjc65.961 - 24.689 ppm04/09/2025 1:19 PM EDT [facility] GreybullCLOSTRIDIUM PERFRINGENS, NOVYI, SEPTICUM (ACUTE WOUND)019.961 - 24.689 ppm04/09/2025 1:19 PM EDTHealthTrackRx of [place] CLOSTRIDIUM PERFRINGENS, NOVYI, SEPTICUM (ACUTE WOUND)Not Snqqurms74.961 - 24.689 ppm04/09/2025 1:19 PM EDTHealthTrackRx of GreybullENTEROBACTER CLOACAE COMPLEX, KLEBSIELLA (ENTEROBACTER) AEROGENES ((A)019.961 - 24.689 ppm 04/09/2025 1:19 PM EDTHealthTrackRx of GreybullENTEROBACTER CLOACAE COMPLEX, KLEBSIELLA (ENTEROBACTER) AEROGENES ((A)Not Yukdavyj81.961 - 24.689 ppm 04/09/2025 1:19 PM EDTHealthTrackRx of GreybullENTEROCOCCUS FAECALIS, GVBRJDT889.961 - 24.689 ppm04/09/2025 1:19 PM EDTHealthTrackRx of [place] ENTEROCOCCUS FAECALIS, FAECIUMNot Tblrugnx01.961 - 24.689 ppm04/09/2025 1:19 PM EDTHealthTrackRx of GreybullESCHERICHIA COLI (ACUTE WOUND)019.961 - 24.689 ppm04/09/2025 1:19 PM EDTHealthTrackRx of GreybullESCHERICHIA COLI (ACUTE WOUND)Not Uhpfxqhz30.961 - 24.689 ppm04/09/2025 1:19 PM EDT [facility] of GreybullKLEBSIELLA PNEUMONIAE, OXYTOCA (ACUTE WOUND)019.961 - 24.689 ppm04/09/2025 1:19 PM EDTHealthTrackRx of GreybullKLEBSIELLA PNEUMONIAE, OXYTOCA (ACUTE WOUND)Not Nngnagvo32.961 - 24.689 ppm04/09/2025 1:19 PM EDTHealthTrackRx of GreybullPROTEUS MIRABILIS, VULGARIS (ACUTE WOUND)22.966(A)19.961 - 24.689 ppm04/09/2025 1:18 PM EDTHealthTrackRx of GreybullPROTEUS MIRABILIS, VULGARIS (ACUTE WOUND)Detected(A)19.961 - 24.689 ppm04/09/2025 1:18 PM EDTHealthTrackRx of GreybullPSEUDOMONAS AERUGINOSA (ACUTE WOUND)019.961 - 24.689 ppm04/09/2025 1:19 PM EDTHealthTrackRx of GreybullPSEUDOMONAS AERUGINOSA (ACUTE WOUND)Not Brkhkiik59.961 - 24.689 ppm 04/09/2025 1:19 PM EDTHealthTrackRx of GreybullSERRATIA MARCESCENS (ACUTE WOUND)019.961 - 24.689 ppm04/09/2025 1:19 PM EDTHealthTrackRx of [place] SERRATIA MARCESCENS (ACUTE WOUND)Not Wwxojfir82.961 - 24.689 ppm04/09/2025 1:19 PM EDTHealthTrackRx of GreybullSTAPHYLOCOCCUS AUREUS (ACUTE WOUND) 24.790(A)19.961 - 24.689 ppm04/09/2025 1:18 PM EDTHealth[facility] of [place] STAPHYLOCOCCUS AUREUS (ACUTE WOUND)Detected(A)19.961 - 24.689 ppm04/09/2025 1:18 PM EDTHealthTrackRx of GreybullSTREPTOCOCCUS AGALACTIAE (GROUP B STREP) (ACUTE WOUND)019.961 - 24.689 ppm04/09/2025 1:19 PM EDTHealthTrackRx of GreybullSTREPTOCOCCUS AGALACTIAE (GROUP B STREP) (ACUTE WOUND)Not Detected 19.961 - 24.689 ppm04/09/2025 1:19 PM EDTHealthTrackRx of [place] STREPTOCOCCUS PYOGENES (GROUP A STREP) (ACUTE WOUND)019.961 - 24.689 ppm 04/09/2025 1:19 PM EDTHealthTrackRx of GreybullSTREPTOCOCCUS PYOGENES (GROUP A STREP) (ACUTE WOUND)Not Lfbupylj30.961 - 24.689 ppm04/09/2025 1:19 PM EDT [facility] of GreybullVIBRIO CHOLERAE, PARAHAEMOLYTICUS, VULNIFICUS (ACUTE WOUND)023.000 - 31.296 ppm04/09/2025 1:19 PM EDTHealthTrackRx of GreybullVIBRIO CHOLERAE, PARAHAEMOLYTICUS, VULNIFICUS (ACUTE WOUND)Not Jwzsasdv98.000 - 31.296 ppm04/09/2025 1:19 PM EDTHealthTrackRx of [place] Specimen (Source)Anatomical Location / LateralityCollection Method / Volume Collection TimeReceived CsioVezru00/ 4:10 AM EDT Narrative Authorizing ProviderResult TypeResult StatusZoë King [facility] BLOOD ORDERABLESEdited Result - FinalPerforming OrganizationAddressCity/State/ZIP Code Phone Number [facility] [address] [place] [address] * HERPES SIMPLEX VIRUS 1 (04/08/2025 12:00 AM EDT)ComponentValueRef RangeTest MethodAnalysis TimePerformed AtPathologist SignatureHERPES SIMPLEX VIRUS 10 23.000 - 32.355 ppm04/09/2025 11:32 AM EDTHealthTrackRx of [facility]bu[facility] hospitalHERPES SIMPLEX VIRUS 1Not Jrwiumme32.000 - 32.355 ppm04/09/2025 11:32 AM EDT [facility] LouisvilleHERPES SIMPLEX VIRUS 2023.000 - 31.433 ppm 04/09/2025 11:32 AM EDTHealthTrackRx of GreybullHERPES SIMPLEX VIRUS 2Not Fftmowty07.000 - 31.433 ppm04/09/2025 11:32 AM EDTHealthTrackRx of [place] HUMAN MONKEYPOX SMPEE312.000 - 32.544 ppm04/09/2025 11:37 AM EDTHealthTrackRx of [facility] ManchesterMAN MONKEYPOX VIRUSNot Apevfxsb47.000 - 32.544 ppm 11:37 AM EDTHealthTrackRx of GreybullVARJOSE ZOSTER VIRUS (HUMAN HERPESVIRUS 3)023.000 - 31.749 04/09/2025 11:32 AM EDTHealthTrackRx of GreybullVARJOSE ZOSTER VIRUS (HUMAN HERPESVIRUS 3)Not Rbznspcy53.000 - 31.749 04/09/2025 11:32 AM EDTHealthTrackRx of GreybullSpecimen (Source) Anatomical Location / LateralityCollection Method / VolumeCollection Time Received DjqsJluvc01/ 4:10 AM EDT Narrative Authorizing ProviderResult TypeResult StatusZoë Arteaga Hemzia PALAB BLOOD ORDERABLESFinal ResultPerforming OrganizationAddressCity/State/ZIP CodePhone Number [facility] [address] [place] [address] from Last 3 Months Insurance Care Teams Team MemberRelationshipSpecialtyStart DateEnd Date Nikko Lovelace MD [address] [facility] [address] [place] [address] PCP - [facility]08/28/17 Nikko Lovelace MD [address] [facility] [address] [place] [address] PCP - GeneralFancly Medicine03/09/23 Elaine Saab LPN [address] [address] 11/15/24
--- OUTSIDE RECORDS SUMMARY | 2025-07-09 10:49 | XMS_ITS | Patient Health Record ---
Author Organization [facility] Address [address] [place] [address] Care Team Providers Care Minute Clerk Name Role Phone Nikko Bird MD Primary Care Provider Dashawn Mendoza [facility] [phone] Allergies No Known Allergies Reason For Referral No Information Medications Medication SIG (Take, Route, Frequency, Duration) Notes Start Date End Date Status aspirin ActiveatorvastatinActiveXareltoActiveOxycodone and AcetaminophenActivelosartan Activefluticasone nasalActivemetoprololActive Social History Tobacco Use: Social History Observation Description Date Details (start date - stop date) Never Smoker NA - NA Smoking History Question Answer Notes Smoking Status NonSmoker Problems Problem Type SNOMED Code ICD Code Onset Dates Problem Status W/U Status Risk Notes Problem Peripheral vascular disease (400 568483) Peripheral vascular disease (I73.9) ActiveconfirmedProblemDisorder of amputation stump (495873612)Other complications of amputation stump (T87.89)ActiveconfirmedProblemAmputated below knee (434911965)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
--- OUTSIDE RECORDS SUMMARY | 2025-07-09 10:49 | XMS_ITS | Clinical Summary ---
Author Organization [facility] Address [address] [facility], [address] [place] [address] Care Team Providers Care Personal Secretary Name Role Phone Nikko Bird MD Primary Care Provider [phone] Allergies No known active allergies Medications MedicationSigDispense [...] DateDiagnosed DateChest pain in adult05/13/2024rteriosclerosis of coronary rcpqqq0305/13/2024 Overview (05/13/2024): Dr. Cee Pinckney, saw for clearance Triple bypass, 2017 [facility] Secondary hypercoagulable state4Paroxysmal atrial fibrillation 4Chronic kidney disease due to ikwjvubfkwsn06/13/2023PVD (peripheral vascular disease) with smdejcukvvxw39/13/2023 Overview (05/13/2024): Last Assessment & Plan: Patient is complaining of worsening symptoms and has had 2 Vascular surgeons Coronary artery disease involving coronary bypass graft of [place] heart without angina wkgoirpt90/09/2019 Overview (05/13/2024): Last Assessment & Plan: Patient with remote coronary artery bypass grafting to 3 vessels. Patient denies chest pain at thistime. Peripheral arterial dhycykg8408/10/2018 Overview (05/13/2024): Last Assessment & Plan: S/P [...] to be reduced (0.5) Atherosclerosis of coronary dgevjv8408/30/2013enign essential hypertension 07/04/2008 Overview (05/13/2024): Last Assessment [...] drink = 0.6 oz pure alcohol)[facility] UtilitiesAnswerDate RecordedIn the past 12 months [...] homeless or living in a penitentiary (including now)?No05/13/2024 Food InsecurityAnswerDate RecordedWithin the past 12 months, you worried that your food would run out before you got the money to buymore.Within the past 12 months, the food you bought just didn't last and you didn't have money to get more.Interpersonal Safety Domain Source: IP Abuse ScreeningAnswerDate RecordedPhysical lkeiuExdoga59/16/2024Verbal abuseDenies 05/13/2024Emotional zxwdmHhpjql21/16/2024Financial csbahKltnyq72/16/2024Sexual cdlbmFyvrwi79/16/2024Sex and Gender InformationValueDate RecordedSex Assigned at BirthNot on fileLegal SsxFihe9610/07/2012 2:47 PM ESTGender IdentityNot on file Sexual OrientationNot on file Last Filed Vital Signs Vital SignReadingTime TakenCommentsBlood Mkeealaz747/54005/14/2024 8:46 AM EDT Egxhl838205/14/2024 6:45 AM ZELUnajmmkdyis68.2 ??C (97.2 ??F)05/14/2024 6:45 AM EDTRespiratory Uemm559505/14/2024 6:45 AM EDTOxygen Uiixbfxzco12%05/14/2024 6:45 AM EDTInhaled Oxygen Concentration--Blwgqt676.5 kg (236 lb 15.9 oz)05/14/2024 5:30 AM SLBMiryfh137 cm (6' 2.02 )05/13/2024 10:33 AM EDTBody Mass Index30.42 05/13/2024 10:33 AM EDT Plan of Treatment Health MaintenanceDue DateLast DoneCommentsDepression Ggafmn741Prostate Specific Antigen (PSA) Screening or Rkiqwoeoea88/09/1979Shingles vaccine (1 of 2)1989Respiratory Syncytial Virus (RSV) or age 60 yrs+ (1 - 1- dose 75+ series)2014nnual Wellness Visit (Medicare Advantage)08/28/2024 Flu vaccine (#1)510/05/2023, 05/31/2022, 06/21/2021, Additional history existsCOVID-19 Vaccine (2024- season)501/, 10/28/2020, 2134Pdvzfk56/17/656411/4DTaP/Tdap/Td vaccine (2 - Td or Tdap) /10/2019Pneumococcal 50+ years LrphgmlKokbfaxge14/11/2021, 05/28/2020, 05/18/2015Hepatitis A vaccineAged OutNo longer eligible [...] AM EDT)ComponentValueRef RangeTest MethodAnalysis TimePerformed AtPathologist SignatureCholesterol, Nwbhc2012 - 199 mg/dL 05/14/2024 6:13 AM EDTMERCY LABORATORIESComment: Cholesterol Guidelines: <200 Desirable 200-240 ??Borderline >240 Undesirable HDL41>40 mg/dL05/14/2024 6:13 AM EDTMERCY LABORATORIESComment: HDL Guidelines: <40 Undesirable 40-59 ?Borderline >59 Desirable LDL Qzftnbfvwfz055 - 100 mg/dL05/14/2024 6:13 AM EDTMERCY LABORATORIESComment: LDL Guidelines: <100 Desirable 100-129 ?? Near to/above Desirable 130-159 ?? Borderline >159 Undesirable Direct (measured) LDL and calculated LDL are not interchangeable tests. Chol/HDL Ratio3. 6:13 AM EDTMERCY UPBHYHTCDNSTOcmnddjrkhdir75<150 mg/dL05/14/2024 6:13 AM EDTMERCY LABORATORIESComment: Triglyceride Guidelines: <150 Desirable 150-199 ??Borderline 200-499 ??High >499 Very high Based on AHA Guidelines for fasting triglyceride, May 2012. CWFR26fu/dL05/14/2024 6:13 AM EDTMERCY LABORATORIESSpecimen (Source)Anatomical Location / LateralityCollection Method / VolumeCollection TimeReceived TimeBlood BLOOD SPECIMEN / Utyfvui6005/14/2024 6:13 AM EDT05/14/2024 6:29 AM EDT Narrative Authorizing ProviderResult TypeResult StatusDanica Rama Merritt OUTSIDE DEALER SALES REPRESENTATIVE - CNPCHEMISTRY ORDERABLESFinal ResultPerforming OrganizationAddressCity/State/ZIP CodePhone Number [facility] [address] [place] [address], [facility] [phone] [facility] [address] [place], [place] [address] [phone] from Last 3 Months or Most Recently Relevant to Health Maintenance Insurance Advance Directives * Full Code (Latest Code Status on File) Date ActivatedDate InactivatedComments05/13/2024 1:14 AM05/14/2024 5:07 PM NameRelationshipHealthcare Agent RelationshipCommunicationJudy IsaacChildPrimary Decision Maker* Care Teams Team MemberRelationshipSpecialtyStart DateEnd Date Nikko Bird MD PCP - Xorwxjq72/19/13
--- OUTSIDE RECORDS SUMMARY | 2025-07-09 11:05 | XMS_ITS | CCD ---
Author Organization [facility] Care Team Providers Care Invasive Cardiovascular Technologist Name Role Phone ELTAHAWY, EHAB A Unavailable Unavailable ELTAHAWY, EHAB A Unavailable Unavailable FLASH LOVELACE Unavailable Unavailable YANIRA CEE AM Unavailable Unavailable RIEGO, FILMORE A. Unavailable Unavailable RIEGO, FILMORE A. Unavailable Unavailable Flash Lovelace Primary Care Provider FLYNN MANN Attending Unavailabl e FLYNN MANN Referring Unavailabl e FLASH LOVELACE Primary Care Unavailable FLYNN MANN Admitting Unavailabl e [facility] Consulting Monisha MURO, SANTOSH YOUSIF Consulting Unavailable ISAIAS VOGT Attending Unavailable ISAIAS VOGT Referring Unavailable ISAIAS VOGT Attending Unavailable ISAIAS VOGT Referring Unavailable SHAYY WAY Attending Unavailable DUKE SANTOS Attending Unavailable DUEK SANTOS Referring Unavailable ANALIA FOX Attending Unavailable Flash Lovelace Primary Care Provider Flash Lovelace MD Primary Care Provider Flash Lovelace MD Primary Care Provider ILEANA KANG Attending Unavailable FLASH LOVELACE Primary Care Unavailable Flash Lovelace MD Primary Care Provider [phone] Cristian Beaver Unavailable MD Flash Lovelace Primary Care Provider MD Cristian Beaver Attending Provider Flash Lovelace MD Primary Care Provider Flash Lovelace MD Primary Care Provider [phone] FLASH LOVELACE Primary Care Unavailable Dalila Arreguin Attending Unavailable FLASH LOVELACE Primary Care Physician Haven Malcolm Unavailable DR FLASH LOVELACE Primary Care Unavailable ARISTEO, RUSSEL Admitting Unavailable ARISTEO, RUSSEL Consulting Unavailable RUSSEL VALLEJO Attending Unavailable ALBANIA, DR VIDALES Primary Care Unavailable BHASKAR WILSON Admitting Unavailable BHASKAR WILSON Consulting Unavailable BHASKAR WILSON Attending Unavailable ALGHOELIZABETH BRAXTON Attending Unavailable ALBANIA, DR VIDALES Primary Care Unavailable ZIEBER, DR MIKEY Garcia Consulting Unavailable ALGHOTHANI, MOHAMAD Admitting Unavailable ALGHOTHRUPESH, MOHRANDOLPHD Consulting Unavailable ALBANIA, DR VIDALES Primary Care Unavailable BRENNA MOSQUERA Admitting Unavailable BRENNA MOSQUERA Consulting Unavailable BRENNA MOSQUERA Attending Unavailable System, Provider Not In Unavailable UnavailMD Flash Gutiérrez Primary Care Provider [phone] BERTA Malcolm Attending Provider MD Cristian Beaver Attending Provider [phone] Flash Lovelace MD Primary Care Provider SCAR ORTEGA Referring Unavailable FLASH LOVELACE Primary Care Unavailable SCAR ORTEGA Attending Unavailable FLASH LOVELACE [facility] Care Unavailable SELF, SELF Referring Unavailable SCAR ORTEGA Attending Unavailable MD Flash Lovelace Primary Care Provider MD Cristian Beaver Attending Provider [phone] MD Eliezer Carvalho V Attending Provider MD Duke Dunbar Referring Provider BRENNA MOSQUERA Attending Unavailable FLASH LOVELACE Primary Care Unavailable GISEL MANN Admitting Unavailable ERAN HARPER Consulting Unavailable JUAN EARL Attending Unavailable Flash Lovelace MD Unavailable Flash Lovelace MD Primary Care Provider [phone] Monday Mary MASON Unavailable Flash Lovelace MD Primary Care Provider Cathy LIGHT, Lorraine Unavailable Saab CONSTRU[employer] CRAFT LABORER, Elaine Unavailable Unavailable MOUKARBEL, ELIEZER Admitting Unavailable MOUKARBEL, ELIEZER Attending Unavailable ARISTEO, RUSSEL Attending Unavailable MOUKARBEL, ELIEZER Attending Unavailable MOUKARBEL, ELIEZER Attending Unavailable ARISTEO, RUSSEL Attending Unavailable Saab CONSTRUCTION CRAFT LABORER, Elaine Unavailable [place] DIAZ, Flash Arteaga Primary Care Provider [phone] Cristian Beaver MD Attending Provider MOHSEN SARABIA Referring Unavailable CORNELL, MOHSEN DE OLIVEIRA Admitting Unavailable ALB[place]IA, RUGEN M Primary Care Unavailable KEN JOHNSON Attending Unavailable CORNELL, MOHSEN DE OLIVEIRA Attending Unavailable [place], RUGEN M Primary Care Unavailable WALKER, MOHSEN DE OLIVEIRA Attending Unavailable [place], RUGEN M Primary Care Unavailable WALKER, MOHSEN DE OLIVEIRA Attending Unavailable [place], RUGEN M Primary Care Unavailable Cristian Beaver MD Other Provider Migdalia DIAZ, Beena Rome Attending Provider Muna Greene DO Emergency Provider Adiel Mccollum MD Admit Provider Adiel Mccollum MD Attending Provider Muna Greene DO Emergency Provider Adiel Mccollum MD Admit Provider [phone] Milvia Vang APRN Other Provider Trace DIAZ, Richie Bazan Other Provider Jhonny DIAZ, Jesse Morris Other Provider José Miguel DIAZ, Randall Denise Other Provider Ramana Gonzalez DO Other Provider Sharad DIAZ, Joyce Other Provider Cheyenne DIAZ, Misael Other Provider Conrad DIAZ, Yudelka Ontiveros Attending Provider Conrad DIAZ, Yudelka Ontiveros Other Provider Ben Reddy DO Other Provider [phone] ALBANIA, RUGEN M Primary Care Unavailable MOHSEN SARABIA Attending Unavailable WALKER, MOHSEN DE OLIVEIRA Referring [...] VOSS Attending Unavailable MOHSEN SARABIA Consulting Unavailable [place] Flash DIAZ Primary Care Provider [phone] RAFAELA GARCIA Attending Unavailable CONSULT, PULMONOLOGY Consulting Unavailable [place], RUGEN Primary Care Unavailable SYSTEM, PROVIDER NOT IN Referring Unavaila VIVIENNE Matute Admitting Unavailable Cristian Beaver Admitting Unavailable Cristian Beaver Attending Unavailable [place], Rugen M Primary Care Unavailable Ben Reddy Attending Unavailable AlbertomaAdiel garcia Admitting Unavailable Milvia Vang Consulting Unavailable [place], Rugen M Primary Care Unavailable Richie Woodward Consulting Unavaila Jesse Juan Consulting Unavailable Randall Valdez Consulting Unavailable Ramana Gonzalez Consulting Unavailable Orourke, Basem Consulting Unavailable Imperial Baslola Consulting Unavailable Yudelka Martines Consulting Unavaila Cristian Khanna Admitting Unavailable Cristian Beaver Attending Unavailable [place], Rugen M Primary Care Unavailable Cristian Beaver Admitting Unavailable Cristian Beaver Attending Unavailable [place], Rugen M Primary Care Unavailable ALBANIA, RUGEN M Attending Unavailable BHASKAR WILSON Attending Unavailable ALBANIAFLASH M Attending Unavailable ZOË KING Attending Unavailable ALBANIAFLASH Attending Unavailable [place], RUGEN M Referring Unavailable [place], RUGEN M Attending Unavailable ZOË KING Attending Unavailable [place], RUGEN M Attending Unavailable FLASH LOVLEACE Attending Unavailable FLASH LOVELACE Primary Care Unavailable MOHSEN SARABIA Referring Unavailable MOHSEN SARABIA Attending Unavailable MOHSEN SARABIA Referring Unavailable MOHSEN SARABIA Attending Unavailable FLASH LOVELACE Primary Care Unavailable Monday Mary MASON Unavailable Lorraine Morgan RN Unavailable [phone] Allergies Allergy ClassificationReported Allergen(s)Allergy TypeDate of OnsetReaction(s) FacilityDoxycycline (2 sources)DoxycyclineDrug Iirxbbs19-39-4465AqgaSovzik (1 source)54478,00; Translations: [16528,00]Propensity to adverse reactions (disorder)14-83-6511[facility] (11 sources)oxyCODONE; Translations: [oxycodone]Drug Dnfqybd67-35-8938 Anaphylaxis, Anaphylaxis (disorder)[facility] (20 sources)Doxycycline; Translations: [DOXYCYCLINE]Drug Erndanp38-24-7018 UnknownOhioHealth (20 sources)gabapentin; Translations: [GABAPENTIN]Drug Acpdhbr85-43-9128UR IntoleranceOhioHealth (12 sources)tiZANidine; Translations: [tizanidine]Drug Qtiefuu94-48-9372DqwzhcbsMer[facility] (1 source)gabapentinDrug Hdkubfc05-04-0570HoutmqiltAkron [facility] Medications Current Medications MedicationDrug Class(es)DatesSig (Normalized)Sig (Original)acetaminophen 325 mg / oxyCODONE hydrochloride 5 mg oral tablet (20 sources)Opioid AgonistStart: 05-09-2025 End: 53-02-9770oagc 1 tablet by mouth every eight hours as needed1 tablet, Oral, EVERY 8 HOURS NEEDED, Starting on Mon05/09/25 at 0434, Until Mon05/13/25 at 1552, Severe Pain, Maximum dose of acetaminophen is 4000 mg from all sources in 24 hours.Start: 04-03-2025 End: 20-49-8863mbmj 1 tablet by mouth every six hours for painoxyCODONE- acetaminophen (Percocet) 5-325 MG tablet Indications: PVD (peripheral vascular disease) with claudication Take 1 tablet by mouth every 6 (six) hours if needed for severe pain or moderate pain 120 tablet 05/29/2025 06/28/2025 ActiveStart: 95-34-4535pbcw 1 tablet by mouth every six hours for painoxyCODONE-acetaminophen (Percocet) 5-325 MG tablet Indications: PVD (peripheral vascular disease) with claudication Take 1 tablet by mouth every 6 (six) hours if needed for severe pain or moderate pain 15 tablet 03/31/2025 ActiveStart: 03-34-6017jtis 1 tablet by mouth every six hours for painoxyCODONE-acetaminophen (Percocet) 5-325 MG tablet Indications: PVD (peripheral vascular disease) with claudication Take 1 tablet by mouth every 6 (six) hours if needed for severe pain or moderate pain 15 tablet 03/31/2025 ActiveStart: 11-04-2022 End: 69-47-9100pqpj 1 tablet by mouth every four hours as neededoxyCODONE- acetaminophen (PERCOCET) 5-325 mg per tablet 1 tabletStart: 12-08-2555xtwm 1 tablet by mouth every four hours for painPercocet 2.5/325 oral tablet 1 tab(s), Oral, q4hr for pain, Refill(s) 0 Start Date: 10/05/21 Status: OrderedStart: 10-12-2018 End: 26-01-9104tuue 1 tablet by mouth every four hours as needed, then take 7 tablets by mouth as neededoxyCODONE-acetaminophen (PERCOCET) 5-325 mg per tablet Indications: Acute post-operative pain Take 1 (one) tablet by mouth every 4 (four) hours as needed (december) (Days supply per fill: 7) . 20 tablet 0 10/12/2018 10/19/2018 ActiveStart: 10-05-2018 End: 52-94-6071orlb 1 tablet by mouth every twenty-four hours as needed1 tablet, Oral, Once as needed, Pain, Starting 10/08/18 at 0835, For 1 dose, PACU (only) While in PACU when tolerating orals. Use oral route first, if tolerated.Start: 05-12-2017 End: 17-61-1615qior 1 tablet by mouth every six hours as needed for painStart: 53-88-7488tlar 1 tablet by mouth every four to six hours as needed for pain Oxycodone-Acetaminophen (Percocet) 5-325 mg Tablet Active 1 TAB PO EVERY 4-6 HOURS as needed for Pain May 12, 2017 12:00am Complies with drug therapy oxyCODONE-Acetaminophen 5-325 MG Oral for 10 Days Activealbuterol 0.83 mg/ml inhalation solution (20 sources)beta2-Adrenergic AgonistStart: 33-37-5258vqij 2.5 mg by inhalation four times dailyStart: 03-14-2025 End: 91-17-7957Qubeo: 35-49-6884puih 1 puff(s) by inhalation every four to six hours as needed for wheezingStart: 01-30-2024 End: 37-83-7802wcem 1 puff(s) by inhalation every four hours for wheezing albuterol HFA 90 mcg/act inhaler Indications: Sinusitis, unspecified chronicity, unspecified location Inhale 1 puff every 4 (four) hours if needed for wheezing or shortness of breath 76.5 Unspecified3 11/26/2024 ActiveStart: 04-15-2022 End: 18-50-5011khzu 2 puff(s) by inhalation every four hours as needed for wheezing2 puff, Inhalation, Every 4 hours PRN, wheezing, shortness of breath, Starting on Mon04/15/22 at 0101 SPACER REQUIRED FOR ADMINISTRATIONStart: 02-25-2022 End: 19-04-1229rhtk 2 puff(s) by inhalation every four hours as needed for cough albuterol 90 mcg/actuation inhaler Indications: Chronic obstructive pulmonary disease, unspecified COPD type (HCC) Inhale 2 (two) puffs every 4 (four) hours as needed for wheezing, shortness of breath or cough . 54 g 3 08/30/2022 Active Start: 01-21-2022 End: 45-99-4852tfuf 2.5 mg by inhalation every six hours [...] Mon05/09/25 at 0800, Until DiscontinuedStart: 02-03-2023 End: 45-10-1822hehlyizbufy-albuterol (Duo-Neb) 0.5-2.5 mg/3 mL nebulizer solution Indications: Chronic bronchitis,unspecified chronic bronchitis type (HCC) , COPD exacerbation (HCC) Take 3 mL by nebulization in the morning and 3 mL in the evening and 3 mL before bedtime. 270 mL 2 05/14/2025 08/12/2025 Active Start: 11-03-2022 End: 16-55-9053gdym 3 mL by inhalation every six hours3 mL, Inhalation, Every 6 hours scheduled (RT), First dose on Mon11/03/22 at 2230Start: 11-03-2022 End: 71-75-5465rssu 3 mL by inhalation every four hours as needed3 mL, Inhalation, Every 4 hours PRN (RT), shortness of breath, Starting on Mon11/03/22 at 2228Start: 11-03-2022 End: 29-17-9515siciyakfwuu-albuteroL (DUO-NEB) 0.5-2.5 mg/3 ml nebulizer Take 3 mL by nebulization 3 (three) timesa day . 11/03/2022 03/14/2025 Discontinued (Therapy completed)Start: 77-60-7319awnvksoojfh-albuterol (DUONEB) nebulizer solution 1 ampuleamLODIPine 5 mg oral tablet (14 sources)Dihydropyridine Calcium Channel BlockerStart: 04-24-2024 End: 51-87-2605cycx 1 tablet by mouth in the morningamLODIPine (Norvasc) 5 MG tablet Take 5 mg by mouth in the morning. 04/24/2024 05/21/2024 Discontinued (Other)Start: 10-12-2023 End: 35-45-9429bqee 1 tablet by mouth once dailyAmlodipine 10 mg tablet Discontinued 10 MG PO Daily October 12, 2023 1:00am May 02, 2025 4 :14pm End: 22-73-4645ruEMABFevh (NORVASC) 5 MG tabletamoxicillin 500 mg / clavulanate 125 mg oral tablet (20 sources)Penicillin-class AntibacterialStart: 84-09-9969ytiiojnaisa- clavulanate (AUGMENTIN) 500-125 mg per tablet 04/16/2025 ActiveStart: 04-16-2025 End: 61-70-0951wapn 1 tablet by mouth in the morningamoxicillin-clavulanate (Augmentin) 500-125 MG tablet Take 500 mg by mouth in the morning and 500 mg before bedtime. 04/16/2025 05/20/2025 Discontinued (Therapy completed)Start: 04-10-2025 End: 08-68-9035hykr 1 tablet by mouth in the morningamoxicillin-clavulanate (Augmentin) 875-125 MG tablet Indications: Ischemic toe ulcer, right, with 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) Take 1 tablet (875 mg) by mouth in the morning and 1 tablet (875 mg) in the evening. Take with meals. Do all this for 7 days. 14 tablet 04/10/2025 04/17/2025 ActiveStart: 10-22-2018 End: 69-96-0960hyzj 1 tablet by mouth every twelve hoursamoxicillin-clavulanate (AUGMENTIN) 875-125 mg per tablet Take 1 tablet by mouth every 12 (twelve) hours . 0 10/22/2018 03/13/2019 Discontinued (Therapy completed) End: 67-68-5733dflm 1 tablet by mouth every twelve hoursAmoxicillin-clavulanate 500-125 MG tablet Take 1 tablet by mouth every 12 hours. 05/13/2025 Discontinued (Stop Taking at Discharge)azelastine hydrochloride 0.137 mg/actuat metered dose nasal spray (20 sources)Histamine-1 Receptor AntagonistStart: 12-53-4962mjsh 1 spray(s) nasal route once daily as neededazelastine 0.1 % Solution nasal spray 1 spray by Nasal route daily as needed. Use in each nostril as directed 05/13/2025 Active Start: 03-15-2025 End: spray, Each Nare, Daily, First dose on 03/15/25 at 0900 Start: 28-01-4699opxk 1 spray(s) nasal route twice daily as neededStart: 11-04-2024 End: 53-17-8910hate 1 spray(s) nasal route in the morningAzelastine HCl 137 MCG/SPRAY solution Indications: Seasonal allergic rhinitis due to pollen Administer 1 spray into affected nostril(s) in the morning and 1 spray before bedtime. Do all this for 14 days. 90 mL 3 11/04/2024 05/20/2025 Discontinued (Other)Start: 05-21-2024 End: 99-17-8175sczi 1 spray(s) nasal route in the morningAzelastine HCl 137 MCG/SPRAY solution Indications: Seasonal allergic rhinitis due to pollen Administer 1 spray into affected nostril(s) in the morning and 1 spray before bedtime. Do all this for 14 days. 30 mL 08/12/2024 Active End: 26-71-7920rvpv 1 spray(s) nasal route twice dailyazelastine 0.1 % Solution nasal spray 1 spray by Nasal route 2 times daily. Use in each nostril as d irected 05/13/2025 Discontinuedazithromycin 250 mg oral tablet (7 sources)Macrolide AntimicrobialStart: 04-29-2025 End: 58-44-7235yjxl 2 tablets by mouth once daily, then take 1 tablet by mouth once dailyazithromycin (Zithromax) 250 MG tablet Indications: Acute non- recurrent sinusitis, unspecified location Take 2 tablets (500 mg) by mouth Daily for 1 day, THEN 1 tablet (250 mg) Daily for 4 days. 6 tablet 04/29/2025 05/04/2025 ActiveStart: 06-17-2024 End: 62-38-0051sxca 1 tablet by mouth once dailyazithromycin (Zithromax) 250 MG tablet Indications: Upper respiratory tract infection, unspecified type Take 1 tablet (250 mg) by mouth Daily for 5 days 6 tablet 06/17/2024 06/22/2024 Active benzonatate 100 mg oral capsule (20 sources)Non-narcotic AntitussiveStart: 35-29-3947qltfrjwxcbu (Tessalon) 100 MG capsule Three times daily 05/08/2025 ActiveStart: 25-35-6179pzne 2 capsules by mouth three times dailyStart: 10-30-2022 End: 12-86-3397emrcsqszrsy (TESSALON) capsule 100 mgStart: 10-30-2022 End: 89-97-5507fejricgyddc (TESSALON) capsule 100 mg End: 65-08-0645udnp 1 capsule by mouth three times daily as needed for cough benzonatate (TESSALON) 100 MG capsule Take 100 mg by mouth 3 (three) times a day as needed for cough . 0 03/13/2019 Discontinued (Therapy completed)120 actuat budesonide 0.16 mg/actuat / formoterol fumarate 0.0048 mg/actuat / glycopyrrolate 0.009 mg/actuat metered dose inhaler (8 sources)Corticosteroid, beta2-Adrenergic AgonistStart: 95-71-1271cjak 1 puff(s) by inhalation in the wykugfpZsujqyb-Vgppujdglcz-Bxdxpnddcz (Breztri Aerosphere) 160-9-4.8 MCG/ACT aerosol Indications: Pneumonia due to infectious organism, unspecified laterality, unspecified part of lung Inhale 1 puff in the morning and at noon 18 g 05/20/2025 Activeciprofloxacin 500 mg oral tablet (2 sources)Quinolone AntimicrobialStart: 01-09-2025 End: 15-86-9926gdpd 0.5 tablet by mouth in the morningciprofloxacin (Cipro) 500 MG tablet Indications: Dysuria Take 0.5 tablets (250 mg) by mouth in the morning and 0.5 tablets (250 mg) before bedtime. Do all this for 5 days. 5 tablet 01/09/2025 01/14/2025 Activeciprofloxacin 3 mg/ml / dexamethasone 1 mg/ml otic suspension (2 sources)Corticosteroid, Quinolone AntimicrobialStart: 06-10-2025 End: 05-28-1793xcerqvuafzsdk-dexAMETHasone (CiproDEX) otic suspension Indications: Acute eczematoid otitis externaof right ear Administer 4 drops into affected ear(s) in the morning and 4 drops before bedtime. Do all this for 7 days. 7.5 mL 06/10/2025 06/17/2025 Activecollagenase 0.25 unt/mg topical ointment (20 sources)Collagen-specific EnzymeStart: 04-21-2025 End: 98-93-6198Qaexgb 250 UNIT/GM ointment Apply 1 application topically Daily 04/21/2025 ActiveStart: 00-21-9126MptwuK ointment 04/21/2025 Activedoxycycline hyclate 100 mg oral tablet (14 sources)Tetracycline-class DrugStart: 90-90-5943wvpj 1 tablet by mouth twice dailyStart: 01-17-2022 End: 94-03-2339rdpo 1 capsule by mouth twice dailydoxycycline hyclate (VIBRAMYCIN) 100 MG capsule Take 100 mg by mouth 2 (two) times a day . 0 022 01/19/2022 DiscontinuedStart: 10-12-2018 End: 51-32-7338revs 1 tablet by mouth twice dailydoxycycline hyclate (VIBRA- TABS) 100 MG tablet Take 1 (one) tablet (100 mg total) by mouth 2 (two) times a day for 10 days . 20 tablet 0 10/12/2018 10/22/2018 ActiveStart: 09-12-2018 End: 96-39-4564rpsz 1 tablet by mouth twice dailydoxycycline hyclate (VIBRA- TABS) 100 MG tablet Take 1 (one) tablet (100 mg total) by mouth 2 (two) times a day for 10 days . 28 tablet 0 09/20/2018 09/30/2018 Activeergocalciferol 1.25 mg oral capsule (13 sources)Provitamin D2 Compound End: 83-21-3805yjicycvepihqtz (Vitamin D-2) 1.25 MG (94942 UT) capsule Take 50,000 Units by mouth every 7 (seven) days. 05/21/2024 Discontinued (Other) End: 78-58-5516iack 1 capsule by mouth every weekergocalciferol (ERGOCALCIFEROL) 1,250 mcg (50,000 unit) capsule Take 1 (one) capsule (50,000 Units total) by mouth once a week . 0 08/09/2023 Discontinued (Discontinued by another clinician)furosemide 20 mg oral tablet (20 sources)Loop DiureticStart: 03-15-2025 End: 44-26-0660fncb 20 mg by mouth every other day20 mg, Oral, Every other day, First dose on 03/15/25 at 0900Start: 37-62-0611xwmn 1 tablet by mouth twice dailyStart: 11-03-2022 End: 28-18-8399xdgiwwcvah (LASIX) injection 20 mgStart: 05-10-2017 End: 93-76-5922kdmpxontew (Lasix) 20 MG tablet Indications: Benign essential hypertension TAKE 1 TABLET EVERY MORNING 90 tablet 3 10/14/2024 Vxcqtc52 hr guaiFENesin 600 mg extended release oral tablet (4 sources)Start: 05-08-2025 End: 51-81-9161ubppBFWogli (Mucinex) 600 MG 12 hr tablet Twice daily 05/08/2025 05/20/2025 Discontinued (Other)24 hr isosorbide mononitrate 30 mg extended release oral tablet (3 sources)Nitrate VasodilatorStart: 05-14-2024 End: 47-68-8166plpc 1 tablet by mouth once dailyisosorbide mononitrate ER (Imdur) 30 MG 24 hr tablet Take 1 tablet by mouth Daily 05/14/2024 05/21/2024 Discontinued (Other)lanolin 0.157 mg/mg / menthol 0.0044 mg/mg / petrolatum 0.24 mg/mg / zinc oxide 0.206 mg/mg topicalointment (20 sources)Start: 61-16-3131Bwtibvw-Zinc Oxide (Calmoseptine) 0.44-20.6 % ointment Indications: 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HCC) Apply 1 Application topically every 6 (six) hours if needed (Barrier Cream) 100 g 3 06/10/2025 ActiveStart: 27-43-7428Vitaoff-Zinc Oxide (Calmoseptine) 0.44-20.6 % ointment Indications: 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HCC) Apply 1 Application topically every 6 (six) hours if needed (Barrier Cream) 100 g 3 06/10/2025 ActiveStart: 04-26-2024 End: 03-23-9565Gjcwbsz-Zinc Oxide (Calmoseptine) 0.44-20.6 % ointment Indications: 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HCC) Apply 1 Application topically every 6 (six) hours if needed (Barrier Cream) 100 g 3 04/26/2024 06/10/2025 Discontinued (Reorder)Start: 06-27-2023 End: 80-52-2618Vfiezuntnnrt 0.44-20.6 % ointment 06/27/2023 04/26/2024 Discontinued (Reorder)levoFLOXacin 500 mg oral tablet (10 sources)Quinolone AntimicrobialStart: 05-27-2025 End: 48-36-1830oznh 1 tablet by mouth once dailylevoFLOXacin (Levaquin) 500 MG tablet Indications: Abscess of lower lobe of left lung with pneumonia (HCC) Take 1 tablet (500 mg) by mouth Daily for 14 days 14 tablet 05/27/2025 06/10/2025 ActiveStart: 11-09-2022 End: 85-90-6404kulx 1 tablet by mouth once dailylevoFLOXacin (LEVAQUIN) 750 MG tablet Take 1 (one) tablet (750 mg total) by mouth daily for 5 days Start: 11/09/22. 5 tablet 0 11/09/2022 11/14/2022 ActiveStart: 10-30-2022 End: 96-65-2678iabq 1 tablet by mouth once dailylevoFLOXacin (LEVAQUIN) 750 MG tablet Take 1 tablet by mouth daily for 5 days 5 tablet 0 /05/2023 Active End: 67-63-1389kfebKDUGoeef (LEVAQUIN) 500 MG tabletLisinopril (19 sources)Angiotensin Converting Enzyme InhibitorStart: 98-23-9758ncossxptbd Start Date: 07/03/19 Status: OrderedStart: 05-10-2017 End: 94-74-3600pzkh 1 tablet by mouth once dailyLisinopril 10 mg Tablet Discontinued 10 MG PO Daily May 10, 2017 12:00am May 12, 2017 11:03am End: 72-46-4384oejb 1 tablet by mouth once dailylisinopriL (PRINIVIL,ZESTRIL) 5 MG tablet Take 1 (one) tablet (5 mg total) by mouth daily . 0 08/09/2023 Discontinued (Discontinued by another clinician) End: 75-95-7819wyax 1 tablet by mouth once dailylisinopril (PRINIVIL,ZESTRIL) 40 MG tablet Take 40 mg by mouth daily . 0 10/09/2019 Discontinued (Therapy completed)menthol 0.0044 mg/mg / zinc oxide 0.206 mg/mg topical ointment (16 sources)Start: 35-45-7166Zvzbpitzzwch 0.44-20.6 % Oint Apply 1 Application topically daily as needed . 06/27/2023 ActiveStart: 51-13-0273Icdmufbahrjr 0.44- 20.6 % Oint 06/27/2023 ActivemethylPREDNISolone 125 mg injection (12 sources)CorticosteroidStart: 59-58-7312xwgtkbOJXGKCGatcgg sodium (SOLU- MEDROL) injection 125 mgStart: 11-24-2021 End: 61-84-3121orounfJPVLXSjllork 4 MG Tab Therapy Pack tablet Take 1 tablet by mouth As directed. follow package directions 21 tablet 11/24/2021 05/09/2025 Discontinuedmetoprolol tartrate 50 mg oral tablet (20 sources)beta-Adrenergic BlockerStart: 01-19-2022 End: 95-14-8852xudz 50 mg by mouth twice daily50 mg, Oral, 2 times daily, First dose on Mon01/19/22 at 0900Start: 09-05-2018 End: 63-45-9767cmlu 50 mg by mouth once daily50 mg, Oral, Daily, First dose on Mon09/05/18 at 1700 DO NOT CRUSH OR CHEW.Start: 05-10-2017 End: 05-69-3696oulxzzeldg tartrate (Lopressor) 50 MG tablet Indications: Benign essential hypertension TAKE 1 TABLET IN THE MORNING AND 1 TABLET BEFORE BEDTIME. 180 tablet 3 04/29/2025 ActiveStart: 05-10-2017 End: 42-38-5890ywtb 1 tablet by mouth in the morningmetoprolol tartrate (Lopressor) 50 MG tablet Indications: Benign essential hypertension Take 1 table t (50 mg) by mouth in the morning and 1 tablet (50 mg) before bedtime. 180 tablet 3 06/20/2024 06/20/2025 Active End: 90-53-8356ntwn 1 tablet by mouth twice dailymetoprolol succinate 50 MG PO tablet XL Take 1 tablet by mouth 2 times daily. 05/09/2025 Discontinued End: 43-07-4292xqwm 1 tablet by mouth every twenty-four hoursmetoprolol succinate (TOPROL-XL) 50 MG 24 hr tablet Take 50 mg by mouth . 0 09/13/2018 Discontinuedmontelukast 10 mg oral tablet (20 sources)Leukotriene Receptor AntagonistStart: 03-21-2024 End: 76-52-6458mpyn 1 tablet by mouth at bedtimemontelukast (Singulair) 10 MG tablet Indications: Seasonal allergic rhinitis due to pollen Take 1 tablet (10 mg) by mouth at bedtime 30 tablet 11 03/21/2024 03/31/2025 Discontinued (Other) naloxone (NARCAN) 4 mg/actuation [place] (6 sources)Start: 30-56-1184ndqwnjgf (NARCAN) 4 mg/actuation [place] Administer 1 spray into one nostril for known or suspected opioid overdose. If patient worsens or does not respond, may repeat in 2-3 minutes. . 2 each 03/21/2025 ActiveStart: 48-22-3530iwjspvez (NARCAN) 4 mg/actuation [place] Administer 1 spray into one nostril for known or suspected opioid overdose. If patient worsens or does not respond, may repeat in 2-3 minutes. . 2 each 03/21/2025nitroglycerin 0.4 mg sublingual tablet (20 sources)Nitrate VasodilatorStart: 12-07-2022 End: 02-70-2277bfuahgxtqlsdm (Nitrostat) 0.4 MG SL tablet Indications: PVD (peripheral vascular disease) with claudication Place 1 tablet (0.4 mg) under the tongue every 5 (five) minutes if needed for chest pain 90tablet 1 03/31/2025 ActiveStart: 58-28-7728zgjzyEJXDJUFH (NITROSTAT) 0.[address] 1 tablet as needed by sublingual route. 12/07/2022ctiveStart: 01-19-2022 End: .4 mg, Sublingual, Every 5 min PRN, chest pain, Starting on Mon01/19/22 at 0335, For 3 doses Anginal pain, may repeat D8ltlduav x3, then notify physician. DO NOT CRUSH OR CHEW.Start: 09-05-2018 End: 19-70-5251qjbesFKJWWUTZ (NITROSTAT) SL tablet 0.4 mg End: 24-90-0780ghjqkKIEDTZKS (NITROSTAT) 0.[address] under the tongue every 4 to 6 hours as needed . 0 01/21/2022 Discontinued (Stop Taking at Discharge)omeprazole 20 mg delayed release oral capsule (20 sources)Proton Pump InhibitorStart: 04-25-2022 End: 68-84-6694Mftceijjec 40 mg Capsule,Delayed Release(Dr/Ec) Discontinued 20 MG PO Daily as needed for heartburnAugust 2021 12:00am May 02, 2025 4:14pmStart: 93-24-9924xplp 20 mg by mouth once dailyOmeprazole Active 20 MG PO Daily April 24, 2022 11:00pmStart: 46-44-6778owls 1 capsule by mouth once dailyOmeprazole (Prilosec) 40 mg Capsule,Delayed Release(Dr/Ec) Active 40 MG PO Daily April 25, 2022 12:00amStart: 78-72-9015jgxlelekaj (PriLOSEC) [address] capsule Indications: Heartburn TAKE 1 CAPSULE EVERY DAY 90 capsule Activeondansetron 4 mg oral tablet (20 sources)Serotonin-3 Receptor AntagonistStart: 04-21-2025 End: 19-04-1466kuzltdruzlv (ZOFRAN) 4 MG tablet 04/21/2025 ActiveStart: 03-25-2025 End: 36-04-5400fhwo 1 tablet by mouth every eight hours for nauseaondansetron ODT (Zofran-ODT) 4 MG disintegrating tablet Indications: Nausea and vomiting, unspecified vomiting type Take 1 tablet (4 mg) by mouth every 8 (eight) hours if needed for nausea or vomiting for up to 7 days 20 tablet 03/25/2025 04/01/2025 ActiveStart: 03-17-2025 End: mg, Intravenous, Every 15 min PRN, nausea, vomiting, Starting on Mon03/17/25 at 1601, For 2 doses, PACU (only), Do not give more than 2 doses. Administer first as needed for nausea/vomiting, or as directed by anesthesia Start: 03-14-2025 End: mg, Intravenous, Once, On Mon03/14/25 at 1445, For 1 doseStart: 03-14-2025 End: 50-15-1004svmp 4 mg intravenously every six hours as needed for nausea and vomiting4 mg, Intravenous, Every 6 hours PRN, nausea, vomiting, Starting on Mon03/14/25 at 1441Start: 06-06-2023 End: 71-55-4503zyrqzoicycz (ZOFRAN) 4 MG tablet 06/06/2023 03/14/2025 Discontinued (Therapy completed)Start: 01-18-2022 End: 85-34-5738qzsfrkvaxyl (ZOFRAN) injection 4 mgStart: 10-08-2018 End: 10-02-1592dadfemgnvux (ZOFRAN) injection 4 mgStart: 09-13-2018 End: 28-31-6755yusg 1 tablet by mouth every eight hours as neededondansetron (ZOFRAN) 4 MG tablet Take 1 (one) tablet (4 mg total) by mouth every 8 (eight) hours asneeded for nausea . 20 tablet 0 09/13/2018 03/13/2019 Discontinued (Therapy completed)polyethylene glycol 3350 61969 mg powder for oral solution (20 sources)Osmotic LaxativeStart: 05-08-2025 End: 58-05-9907wslq 17 g by mouth in the morningpolyethylene glycol, PEG, 3350 (Miralax) 17 g packet Take 17 g by mouth in the morning. 05/08/2025 ActiveStart: 09-04-2011 End: 59-88-9095kjkmpbiumcrt glycol (MIRALAX) 17 gram powder Take 17 (seventeen) g by mouth daily . 09/04/2011 ActiveStart: 09-04-2011 End: g, Oral, 2 TIMES DAILY, First dose on 05/11/25 at 0930, Until Discontinuedpovidone-iodine 100 mg/ml topical solution (2 sources)AntisepticStart: 09-13-2018 End: 75-63-9155eugblhbj-iodine (BETADINE) 10 % external solution Apply topically as needed for wound care Apply daily to foot . 480 mL 0 09/13/2018 09/20/2018 ActivepredniSONE (20 sources)Start: 05-14-2025 End: 67-10-6475qchnofYOZY (DELTASONE) tablet 30 mgStart: 97-62-7645vaqsjgLZBR (Deltasone) 10 MG tablet 05/13/2025 ActiveStart: 05-13-2025 End: 66-80-0970rohr 3 tablets by mouth once daily, then take 2 tablets by mouth once daily, then take 1 tablet by mouth once dailypredniSONE 10 MG tablet Take 3 tablets by mouth daily for 4 days, THEN 2 tablets daily for 4 days, THEN 1 tablet daily for 4 days. 24 tablet 05/13/2025 05/25/2025 ActiveStart: 05-08-2025 take 3 tablets by mouth once dailyStart: 05-02-2025 End: 10-61-8852tgzb 2 tablets by mouth once dailyPrednisone 20 mg tablet Discontinued 40 MG PO Daily May 02, 2025 12:00am May 08, 2025 7:16pmStart: 60-14-9560psqmvfTOIJ (Deltasone) 20 MG tablet 04/30/2025 Active Start: 05-10-2017 End: 07-03-5875zhdn 2 mg by mouth once dailyPrednisone 10 mg Tablet Discontinued 2 MG PO Daily May 10, 2017 12:00am April 25, 2022 11:27amStart: 05-10-2017 End: 35-62-9935ionh 2 mg by mouth once dailyPrednisone Discontinued 2 MG PO Daily May 09, 2017 11:00pm April 25, 2022 10:27am End: 39-41-5809rexxtjAPFF (DELTASONE) 10 MG tabletrivaroxaban 2.5 mg oral tablet (20 sources)Factor Xa InhibitorStart: 04-25-2022 End: 73-93-6906yeif 1 tablet by mouth once dailyRivaroxaban (Xarelto) 2.5 mg tablet Active 2.5 MG PO Daily April 25, 2022 12:00amStart: 11-27-2019 End: 73-28-3383rxcsodgbnty (Xarelto) 2.5 MG tablet Indications: Paroxysmal atrial fibrillation (HCC) TAKE 1 TABLETTWICE DAILY 180 tablet 3 04/09/2025 ActiveStart: 71-68-8421Ljucras Start Date: 07/03/19 Status: OrderedStart: 08-09-2018 End: 53-65-2568arrs 2 tablets by mouth once dailyXARELTO 15 mg Tab take 2 tablets by mouth once daily for 3 weeks 0 08/09/2018 09/13/2018 Discontinued Rivaroxaban 20 MG tablet Take 2.5 mg by mouth 2 times daily. Start in 22 days after the 15mg dose is completed 0 Active End: 62-67-6076subbxmflsbg (XARELTO) 20 mg Tab Take 20 mg by mouth . 0 01/19/2022 Discontinuedsulfamethoxazole 400 mg / trimethoprim 80 mg oral tablet (20 sources)Dihydrofolate Reductase Inhibitor Antibacterial, Sulfonamide AntimicrobialStart: 04-16-2025 End: 80-41-4098jpckvqjwnkjkcjiz-trimethoprim (BACTRIM,SEPTRA) 400-80 mg per tablet 04/16/2025 ActiveStart: 04-08-2025 End: 40-43-5838qvky 1 tablet by mouth once in the morning, then take 1 tablet by mouth once at bedtimesulfamethoxazole-trimethoprim (Bactrim DS) 800-160 MG per tablet Indications: Ischemic toe ulcer, right, with 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) Take 1 tablet by mouth in the morning and 1 tablet before bedtime. Do all this for 7 days. 14 tablet 04/08/2025 04/15/2025 ActiveStart: 01-29-2022 End: 58-60-1899gtdy 1 tablet by mouth twice dailysulfamethoxazole-trimethoprim (BACTRIM DS,SEPTRA DS) 800-160 mg per tablet Take 1 (one) tablet by mouth 2 (two) times a day for 3 days Start: 01/29/22. 6 tablet 0 01/29/2022 01/21/2022 Discontinued (Reorder)Start: 01-18-2022 End: 13-11-1933wzig 1 tablet by mouth twice dailysulfamethoxazole-trimethoprim (BACTRIM DS,SEPTRA DS) 800-160 mg per tablet Take 1 tablet by mouth 2(two) times a day . 0 01/18/2022 04/15/2022 Discontinuedtake 1 tablet by mouth twice daily Sulfamethoxazole-trimethoprim 400-80 MG per tablet Take 1 tablet by mouth 2 times daily. Activetamsulosin hydrochloride 0.4 mg oral capsule (20 sources)alpha-Adrenergic BlockerStart: 30-89-7670qjpo 1 capsule by mouth once dailyTamsulosin HCl 0.4 MG capsule Take 1 capsule by mouth daily. 05/14/2025 ActiveStart: 23-51-9800agwo 1 capsule by mouth once dailyTamsulosin HCl 0.4 MG capsule Take 1 capsule by mouth daily. 05/14/2025 ActiveStart: 39-07-5964juww 1 capsule by mouth once dailyTamsulosin HCl 0.4 MG capsule Take 1 capsule by mouth daily. 05/14/2025Start: 03-31-2025 End: 12-88-2244jxjc 1 capsule by mouth every twenty-four hours in the morning tamsulosin (Flomax) 0.4 MG 24 hr capsule Indications: History of prostate cancer , Urinary hesitancy Take 1 capsule (0.4 mg) by mouth in the morning and 1 capsule (0.4 mg) before bedtime. 200 ffwzjmp6803/31/2025 07/09/2025 ActiveStart: 01-09-2025 End: 69-47-9864vxgl 1 capsule by mouth once daily0.4 mg, [...] tablet (20 sources)gamma-Aminobutyric Acid-ergic AgonistStart: 03-14-2025 End: 35-62-7071nlrj 10 mg by mouth once daily10 mg, Oral, Nightly, First dose on Mon03/14/25 at 2200Start: 09-30-2019 End: 28-41-5476bqhvjswd (Ambien) 10 MG tablet Indications: Primary insomnia Take 1 tablet (10 mg) by mouth as needed at bedtime for sleep 30 tablet 5 02/13/2025 ActiveStart: 05-12-2017 End: 65-08-4430homf 5 mg by mouth at bedtime as needed for sleepZolpidem 10 mg Tablet Discontinued 5 MG PO Bedtime as needed for Sleep May 12, 2017 12:00amFebruary 2023 9:54amStart: 05-12-2017 End: 19-03-6146svcz 5 mg by mouth at bedtimeZolpidem Discontinued 5 MG PO Bedtime May 11, 2017 11:00pm October 12, 2023 8:54amtake 2 tablets by mouth at bedtime as needed for sleepzolpidem 5 MG tablet Take 2 tablets by mouth At bedtime as needed for Sleep. 0 Active Completed/Discontinued Medications MedicationDrug Class(es)DatesSig (Normalized)Sig (Original)acetaminophen 325 mg oral tablet (19 sources)Start: 05-09-2025 End: 46-82-5136epsi 1 tablet by mouth every six hours as znpvur318 mg, Oral, EVERY 6 HOURS NEEDED, Starting on Mon05/09/25 at 0221, Until Mon05/13/25 at 1552, Mild Pain, Oral temp > 100.4 F, Headaches, Alternate with ibuprofen if ordered, Maximum dose of acetaminophen is 4000 mg from all sources in 24 hours or 2000 mg from all sources in patients with cirrhosis in 24 hours.Start: 03-14-2025 End: 88-36-4451bboy 650 mg by mouth every four escsd169 mg, Oral, Every 4 hours while awake, First dose on Mon03/14/25 at 1500Start: 04-15-2022 End: 86-02-6470eubs 1 tablet by mouth every four hours as needed for pain and mg, Oral, Every 4 hours PRN, mild pain, fever 100.4 F or greater, headaches, Starting on Mon04/15/22 at 0101Start: 01-19-2022 End: 58-69-0078ezgm 1 tablet by mouth every four hours as needed for pain and headacheacetaminophen (TYLENOL) tablet 650 mgStart: 01-18-2022 End: 17-73-9465vvktssjphsyut (TYLENOL) tablet 975 mgStart: 07-15-2021 End: 20-54-2932rztk 2 tablets by mouth every four hours as neededacetaminophen 325 MG tablet Take 2 tablets by mouth every 4 hours as needed for Mild Pain. 50 tablet 1 07/15/2021 05/09/2025 Discontinued (Medication Reconciliation (suppress cancel msg))Start: 10-09-2018 End: 50-55-3415plty 1 tablet by mouth every six hours as neededacetaminophen (TYLENOL) tablet 650 mgStart: 09-05-2018 End: 51-65-3481guig 1 tablet by mouth every four hours as fexbmb456 mg, Oral, Every 4 hours PRN, mild pain, fever 100.4 F or greater, headaches, Starting Mon09/05/18 at 1603alprostadil 0.5 mg urethral suppository (1 source)Prostaglandin Analog, Prostaglandin E1 Agonist End: 85-59-4229ocaliqtdboQ ([place]) 500 mcg pelletaluminum hydroxide 40 mg/ml / magnesium hydroxide 40 mg/ml / simethicone 4 mg/ml oral suspension (3 sources)Start: 03-14-2025 End: 68-13-5429ncvg 30 mL by mouth every four hours as neededStart: 11-03-2022 End: 03-05-8767fcgp 30 mL by mouth every four hours as vdvpyu44 mL, Oral, Every 4 hours PRN, indigestion, Starting on Mon11/03/22 at 2228Start: 10-10-2018 End: 32-69-2913rdvlmquz-magnesium hydroxide-simethicone (MAALOX PLUS) 200-200-20 mg/5 mL suspension 30 mLaspirin 81 mg chewable tablet (20 sources)Platelet Aggregation Inhibitor, Nonsteroidal Anti-inflammatory Drug Start: 05-09-2025 End: 89-98-4739zwqc 81 mg by mouth once daily81 mg, Oral, DAILY, First dose on Mon05/09/25 at 0900, Until DiscontinuedStart: 11-04-2022 End: 79-93-9698zcqg 81 mg by mouth once daily81 mg, Oral, Daily, First dose on Mon11/04/22 at 0900Start: 01-19-2022 End: 92-85-7909tzbg 81 mg by mouth once daily81 mg, Oral, Daily, First dose on Mon01/19/22 at 0900Start: 82-80-7414hvaz 1 capsule by mouth once dailyaspirin 81 mg cap Take 1 (one) capsule (81 mg total) by mouth daily . 11/27/2019 Active Start: 80-68-9281ffitqmv Start Date: 07/03/19 Status: OrderedStart: 09-05-2018 End: 77-59-7449vufn 162 mg by mouth once mg, Oral, Daily, First dose on Mon09/05/18 at 1700 DO NOT CRUSH OR CHEW.Start: 09-05-2018 End: 83-77-7025mkwsdnt chewable tablet 81 mgStart: 05-10-2017 End: 21-74-2028jdpb 1 tablet by mouth once dailyBaby Aspirin Activeatorvastatin 40 mg oral tablet (20 sources)HMG-CoA Reductase InhibitorStart: 05-09-2025 End: 55-55-1995wqso 80 mg by mouth once daily80 mg, Oral, DAILY, First dose on Mon05/09/25 at 0900, Until DiscontinuedStart: 03-14-2025 End: 99-18-3105gqde 80 mg by mouth once daily80 mg, Oral, Nightly, First dose (after last modification) on Mon03/14/25 at 2130Start: 07-09-2024 End: 85-20-3310nywdovuqjzxa (Lipitor) 80 MG tablet 07/09/2024 ActiveStart: 11-08-2023 End: 00-86-1032hguomhkubpda (Lipitor) 40 MG tablet Indications: Hypercholesteremia (CMS/HCC) TAKE 1 TABLET EVERY DAY 100 tablet 3 11/08/2023 08/12/2024 Discontinued (Other)Start: 11-04-2022 End: 73-53-9482luiy 40 mg by mouth once daily40 mg, Oral, Nightly, First dose on Mon11/04/22 at 2100Start: 04-15-2022 End: 81-01-4486ejgo 40 mg by mouth once daily40 mg, Oral, Daily, First dose on Mon04/15/22 at 0900Start: 01-19-2022 End: 08-42-7047veab 40 mg by mouth once daily40 mg, Oral, Daily, First dose on Mon01/19/22 at 0900Start: 37-30-8549fxmwmyfckrvv Start Date: 07/03/19 Status: OrderedStart: 10-05-2018 End: 76-47-1131npjc 40 mg by mouth once daily40 mg, Oral, Daily, First dose on Mon10/05/18 at 0900Start: 09-05-2018 End: 69-04-4968sgvr 40 mg by mouth once daily40 mg, Oral, Nightly, First dose on Mon09/05/18 at 2100Start: 05-10-2017 End: 73-42-8663hdrt 2 tablets by mouth once dailyAtorvastatin 20 mg Tablet Discontinued 40 MG PO Daily May 10, 2017 12:00am May 02, 2025 4:12pmStart: 08-99-0188snem 40 mg by mouth once dailyAtorvastatin Active 40 MG PO Daily May 09, 2017 11:00pmStart: 56-38-9450hbep 20 mg by mouth once dailyAtorvastatin Active 20 MG PO Daily May 10, 2017 12:00am End: 46-81-1765fkfu 1 tablet by mouth twice daily, then take 0.5 tablet by mouth twice dailyatorvastatin 40 MG Tab tablet Take 1 tablet by mouth 2 times daily. Takes 1/2 tab bid 05/09/2025 Discontinued End: 01-19-0246yemmzbbjtuju (LIPITOR) 80 MG tablet Take 0.5 (one-half) [...] rectal suppository (13 sources)Stimulant LaxativeStart: 10-11-2018 End: 74-65-4807qwfkbvsdu (DULCOLAX) suppository 10 mgStart: 09-04-2018 End: 95-46-6728sdjv 5 mg by mouth once daily as needed for constipation5 mg, Oral, Daily PRN, constipation, Starting Tu09/04/18 at 2247 DO NOT CRUSH OR CHEW. End: 99-38-2993nenv 1 tablet by mouth twice daily as needed for constipation bisacodyl (DULCOLAX) 5 mg EC tablet Take 5 mg by mouth 2 (two) times a day as needed for constipation . 0 03/13/2019 Discontinued (Therapy completed) budesonide-formoteroL (SYMBICORT) 160-4.5 mcg/actuation inhaler 2 puff (1 source)Start: 11-03-2022 End: 45-19-1927zwoqdvamts-formoteroL (SYMBICORT) 160-4.5 mcg/actuation inhaler 2 puffcalcium carbonate 500 mg chewable tablet (1 source)Start: 03-14-2025 End: 23-88-7849ipyj 500 mg by mouth once daily as needed for gastroesophageal reflux wbqqexa020 mg, Oral, Daily PRN, indigestion, heartburn, Starting on Mon03/14/25 at 6, Give with Foodcalcium chloride 0.001 meq/ml / glucose 50 mg/ml / potassium chloride 0.004 meq/ml / sodium chloride 0.103 meq/ml / sodium lactate 0.028 meq/ml injectable solution (1 source)Start: 09-07-2018 End: 67-45-9228ovzrjjnl 5 % in lactated ringers infusioncalcium chloride 0.0014 meq/ml / potassium chloride 0.004 meq/ml / sodium chloride 0.103 meq/ml / sodium lactate 0.028 meq/ml injectable solution (1 source)Start: 09-07-2018 End: 16-09-8676cvclvubv Ringers infusioncefdinir 300 mg oral capsule (1 source)Cephalosporin Antibacterial End: 48-72-4056xgzipjmf (OMNICEF) 300 MG capsulecefepime 2000 mg injection (4 sources)Cephalosporin AntibacterialStart: 05-09-2025 End: 66-49-9075yape 2 g intravenously every eight hours2 g, Intravenous, Administer over 4 Hours, EVERY 8 HOURS NON-STANDARD, First dose on Mon05/09/25 [id number], Until Discontinued, Infuse STAT doses over 30 minutes. Infuse other doses over 4 hours., On hold since Mon05/12/2025 at 0808 until manually unheld Start: 30-42-8827qche 2 g intravenously every eight hoursStart: 11-04-2022 End: 09-09-3133sfiz 2000 mg intravenously every twelve hourscefePIMe-dextrose (MAXIPIME) 2 gram/50 mL IVPB 2,000 mgcefTRIAXone 2000 mg injection (2 sources)Cephalosporin AntibacterialStart: 11-03-2022 End: 49-19-2225gkkZAOUFpcq (ROCEPHIN) IVPB 2 g (premix)Start: 01-18-2022 End: 59-75-4865piwCZOSWghc (ROCEPHIN) IVPB 2 g (premix)celecoxib 200 mg oral capsule (11 sources)Nonsteroidal Anti-inflammatory DrugStart: 11-24-2021 End: 53-05-0706jbpe 1 capsule by mouth twice dailycelecoxib 200 MG capsule Take 1 capsule by mouth 2 times daily. 60 capsule 11/24/2021 05/09/2025 Discontinued cephalexin 500 mg oral capsule (6 sources)Cephalosporin AntibacterialStart: 01-18-2022 End: 34-95-9644egup 1 capsule by mouth three times dailycephALEXin (KEFLEX) 500 MG capsule Take 500 mg by mouth 3 (three) times a day . 0 01/18/2022 04/15/2022 DiscontinuedStart: 09-29-2018 End: 07-51-7186vohb 1 capsule by mouth three times dailycephALEXin (KEFLEX) 500 MG capsule Take 500 mg by mouth 3 (three) times a day (for 7 days) . 0 09/2910/12/2018 Discontinuedclopidogrel 75 mg oral tablet (20 sources)P2Y12 Platelet InhibitorStart: 03-14-2025 End: 94-28-4385Kkulpttc on Mon03/14/25 at 1702, For 1 dose, HERRERA BACK: paulie overrideStart: 09-05-2018 End: 64-41-3746mkca 1 tablet by mouth once dailyclopidogrel (PLAVIX) 75 mg tablet Take 1 (one) tablet (75 mg total) by mouth daily . 30 tablet 1 09/13/2018 10/13/2018 ActiveStart: 05-10-2017 End: 47-10-9782rrfg 1 tablet by mouth once dailyClopidogrel (Plavix) 75 mg Tablet Discontinued 75 MG PO Daily May 10, 2017 12:00am May 12, 2017 11:03amcodeine phosphate 2 mg/ml / guaiFENesin 20 mg/ml oral solution (3 sources)Opioid AgonistStart: 05-09-2025 End: 01-26-7257ryku 10 mL by mouth every four hours as jlykda23 mL, Oral, EVERY 4 HOURS NEEDED, Starting on Mon05/09/25 at 1141, Until Mon05/13/25 at 1552, Congestion, CoughStart: 92-11-4933azwo 1 mL by mouth every six hours cyclobenzaprine hydrochloride 10 mg oral tablet (1 source)Muscle RelaxantStart: 03-17-2025 End: 97-89-8846ripb 10 mg by mouth every eight hours10 mg, Oral, Every 8 hours scheduled, First dose on Mon03/17/25 at 2200dexamethasone 1 mg/ml / neomycin 3.5 mg/ml / polymyxin b 35136 unt/ml ophthalmic suspension (1 source)Aminoglycoside Antibacterial, Polymyxin-class Antibacterial, Corticosteroid End: 45-37-7305zgclihfx-polymyxin-dexamethasone (MAXITROL) 3.5mg/mL-10,000 unit/mL-0.1 % ophthalmic suspensiondocusate sodium 100 mg oral capsule (20 sources)Start: 07-15-2021 End: 37-71-4498gjbu 1 capsule by mouth twice dailydocusate 100 MG capsule Take 1 capsule by mouth 2 times daily. 60 capsule 07/15/2021 05/09/2025 Discontinued Start: 09-04-2011 End: 46-23-3907wqottqtx sodium (COLACE) 100 MG capsule Take 100 mg by mouth . 0 09/04/2011 03/13/2019 Discontinued(Therapy completed)docusate sodium 50 mg / sennosides, [facility] 8.6 mg oral tablet (13 sources)Start: 03-14-2025 End: 67-48-6383duti 1 tablet by mouth once daily as needed for constipation1 tablet, Oral, Daily PRN, constipation, Starting on Mon03/14/25 at 2025, Use as first line agent for constipation. Do Not Crush or Chew if administering orally due to bitter taste. May be crushed ifgiven via tube.Start: 10-06-2018 End: 39-93-5389dvewl-docusate (SENNA-S) 8.6-50 mg per tablet 1 tabletStart: 09-13-2018 End: 25-21-8261ssqq 1 tablet by mouth twice dailysenna-docusate (SENNA-S) 8.6-50 mg Take 1 (one) tablet by mouth 2 (two) times a day . 60 tablet 0 10/12/2018 10/12/2018 DiscontinuedStart: 09-11-2018 End: 66-89-1618agjtc-docusate (SENNA-S) 8.6-50 mg per tablet 2 tabletStart: 09-04-2018 End: 25-31-2016yfce 1 tablet by mouth twice daily1 tablet, Oral, 2 times daily, First dose on Mon09/04/18 at 2300 NOT for abdominal surgery patients.& amp;nbsp; Hold for loose stools. Do Not Crush or Chew if administering orally dueto bitter taste. May be crushed if given via tube.0.4 ml enoxaparin sodium 100 mg/ml prefilled syringe (13 sources)Low Molecular Weight HeparinStart: 03-15-2025 End: 52-89-8569iykpda 40 mg by subcutaneous injection once daily40 mg, Subcutaneous, Daily, First dose on Mon03/15/25 at 0800, Administer in abdomen unless otherwise directed by prescriber. Notify physician if patient refuses., Indication: VTE ProphylaxisStart: 01-19-2022 End: 14-27-6672emprmekkbt (LOVENOX) syringe 40 mgStart: 10-12-2018 End: 56-20-5961lneqgj 0.4 mL by subcutaneous injection once dailyenoxaparin (LOVENOX) 40 mg/0.4 mL Syrg Inject 0.4 mL (40 mg total) under the skin daily . 12 mL 0 10/12/2018 11/11/2018 ActiveStart: 10-11-2018 End: 36-48-8468pwwfngtaxk (LOVENOX) syringe 40 mgStart: 10-09-2018 End: 37-91-5451azzxghfyae (LOVENOX) syringe 40 mgStart: 10-05-2018 End: 38-87-9456ejknnbiium (LOVENOX) syringe 40 mg1 ml fentaNYL 0.05 mg/ml injection (3 sources)Opioid AgonistStart: 03-17-2025 End: 09-38-335156 mcg, Intravenous, Every 5 min PRN, Pain, Starting on Mon03/17/25 at 1601, For 4 doses, PACU (only), [] Do not give more than 100 mcg while in PACU.Start: 04-14-2022 End: 22-41-3184jhddtKWC (SUBLIMAZE) injection 50 mcgStart: 09-07-2018 End: 69-69-701905 mcg, Intravenous, Every 5 min PRN, moderate to severe pain, Starting Mon09/07/18 at 1507, For 4 doses, PACU (only)fluticasone propionate 0.05 mg/actuat metered dose nasal spray (20 sources)CorticosteroidStart: 03-11-2025 End: 43-54-9320uibx 1 spray(s) nasal route once daily as needed for rhinitis1 spray, Nasal, DAILY NEEDED, Starting on Mon05/09/25 at 2303, Until Mon05/13/25 at 1552, Allergies, Rhinitis, Dose is for each nostril.Start: 05-21-2024 End: 58-25-3248vjmc 1 spray(s) nasal route once dailyfluticasone (Flonase) 50 MCG/ACT nasal spray Indications: Seasonal allergic rhinitis due to pollen A dminister 1 spray into each nostril Daily Shake gently. Before first use, prime pump. After use, clean tip and replace cap. 48 g 3 11/04/2024 ActiveStart: 02-20-2024 End: 28-79-7101paav 1 spray(s) nasal route once daily in the morningfluticasone (Flonase) 50 MCG/ACT nasal spray Indications: Sinusitis, unspecified chronicity, unspecified location USE 1 SPRAY IN EACH NOSTRIL EVERY MORNING 32 g 3 02/20/2024 05/21/2024 Discontinued (Reorder)Start: 10-12-2018 End: 45-14-5591qldbbeouses (FLONASE) 50 mcg/actuation nasal spray 2 (two) sprays by Each Nare route daily . 16 g 12 10/12/2018 ActiveStart: 10-12-2018 End: 06-17-1493gubfdobsnmw (FLONASE) 50 mcg/actuation nasal spray 2 spray Fluticasone Propionate 50 MCG/ACT Nasal for 90 Days ActiveFluticasone Propionate 50 MCG/ACT Nasal for 90 Days Gkxzyg07 actuat fluticasone furoate 0.1 mg/actuat / umeclidinium 0.0625 mg/actuat / vilanterol 0.025 mg/actuat dry powder inhaler (5 sources)Anticholinergic, Corticosteroid, beta2-Adrenergic AgonistStart: 10-27-2022 End: 94-72-6490xfiqvghbnqx-umeclidin-vilanter (Trelegy Ellipta) 100-62.5-25 mcg DsDv 1 puff every night at bedtime. 0 10/27/2022 08/09/2023 Discontinued (Discontinued by another clinician)gabapentin 100 mg oral capsule (20 sources)Anti-epileptic AgentStart: 01-19-2022 End: 29-44-1214myne 100 mg by mouth every eight echnn523 mg, Oral, Every 8 hours scheduled, First dose on Mon04/15/22 at 0200Start: 97-89-1836uyyf 1 capsule by mouth three times dailygabapentin 300 mg Cap 300 mg = 1 cap(s), Oral, TID, # 270 cap(s), Refills(s) 0 Start Date: 10/05/21 Status: OrderedStart: 10-12-2018 End: 81-42-5262vskfjnufhv (NEURONTIN) 100 MG capsule Take 2 (two) capsules (200 mg total) by mouth every 8 (eight)hours (Days supply per fill: 30) . 180 capsule 0 10/12/2018 03/13/2019 Discontinued (Therapy completed)Start: 10-12-2018 End: 68-64-7238erbpgnpojc (NEURONTIN) capsule 200 mgStart: 09-07-2018 End: 38-16-5749kjwk 1 capsule by mouth every eight hoursgabapentin (NEURONTIN) 400 MG capsule Take 1 (one) capsule (400 mg total) by mouth every 8 (eight) h ours . 90 capsule 1 09/13/2018 10/13/2018 ActiveStart: 09-04-2018 End: 87-97-8102tzgq 300 mg by mouth every twelve qpxri822 mg, Oral, Every 12 hours scheduled, First dose on Mon09/04/18 at 2350Start: 07-12-2018 End: 02-23-6452gbme 3 capsules by mouth three times dailygabapentin (NEURONTIN) 100 MG capsule Take 300 mg by mouth 3 (three) times a day . 0 07/12/201808/28 Discontinued End: 22-69-9909bqne 1 capsule by mouth three times dailygabapentin (NEURONTIN) 100 MG capsule Take 1 capsule 3 times a day by oral route for 30 days. 0 07/28 Discontinued (Discontinued by another clinician)Gabapentin Active gabapentin (NEURONTIN) 100 MG capsule Take 100 mg by mouth every 8 (eight) hours (Days supply per fill: {DAYS SUPPLY:76621}) . 0 Eisiyb225 ml heparin sodium, porcine 100 unt/ml injection (4 sources)Unfractionated Heparin, Anti-coagulantStart: 03-15-2025 End: 32-09-31863-70 Units/kg/hr 110.2 kg (0-77.14 mL/hr, rounded to 0-77.1 mL/hr), Intravenous, Continuous, Starting on 03/15/25 at 1345, Choose one of the following protocols: Cardiac / Arterial, Bolus options:Protocol WITHOUT initial bolus only, For Downtime Calculator, use: Heparin Infusion Standard Start: 09-11-2018 End: 02-98-3999hetaaur (porcine) injection 5,000 UnitsStart: 09-04-2018 End: 65-61-2324irghvol (porcine) 25,000 unit/250 mL(100 unit/mL) in D5W infusion heparin bolus from bag 0-5,000 Units (3 sources)Start: 03-15-2025 End: 56-12-61723-5,000 Units, Intravenous, Continuous PRN, IF the MAR calculator for heparin infusion specifies a bolus from bag is to be administered, Starting on Mon03/15/25 at 1248, Choose one of the following protocols: Cardiac / Arterial, Bolus options: Protocol WITHOUT initial bolus only, For Downtime Calculator, use: Heparin Infusion Standard Start: 09-06-2018 End: 92-63-2313ezrwabw bolus from bag 0-5,000 UnitsStart: 09-04-2018 End: 03-06-3228skvgwpt bolus from bag 0-5,000 Units1 ml hydrALAZINE [...] maximum dose or not ordered.Start: 10-11-2018 End: 92-56-1381ucxy 5 mg intravenous route every four hours as neededhydrALAZINE (APRESOLINE) injection 5 mg0.5 ml HYDROmorphone hydrochloride 1 mg/ml prefilled syringe (3 sources)Opioid AgonistStart: 03-17-2025 End: 99-87-2674hncf 1 mg intravenously every three hours as needed1 mg, Intravenous, Every 3 hours PRN, breakthru pain not controlled by PO, Starting on Mon03/17/25 at 1024Start: 03-14-2025 End: 01-87-0708ddgt 0.5 mg intravenously every three hours as needed0.5 mg, Intravenous, Every 3 hours PRN, breakthru pain not controlled by PO, Starting on Mon03/14/25 at 1413Start: 03-14-2025 End: 50.5 mg, Intravenous, Once, On Mon03/14/25 at 1230, For 1 dose HYDROmorphone (DILAUDID) 0.5 mg/mL injection 0.25 mg (1 source)Start: 10-08-2018 End: 10-08-20180.25 mg, Intravenous, Every 5 min PRN, moderate to severe pain, Starting 10/08/18 at 0835, For 6doses, PACU (only) [] Give if fentanyl not effective or not ordered. [] Do not give more than 1.5 mg total. HYDROmorphone (DILAUDID) 0.5 mg/mL injection 0.25-0.5 mg (1 source)Start: 09-04-2018 End: 98-23-7959rkna 0.25-0.5 mg intravenous route every three hours as needed 0.25-0.5 mg, Intravenous, Every 3 hours PRN (may repeat), breakthrough pain, Starting 09/04/18 [id number] [] Initiate with 0.25 mg IV every [...] more than 3 mg total.Start: 09-04-2018 End: 62-60-5235AEYUIlmjgsmzi (DILAUDID) 0.5 mg/mL injection 0.5 mgHYDROmorphone (DILAUDID) 0.5 mg/mL injection 0.5-1.5 mg (1 source)Start: 09-05-2018 End: 00-90-8082HGKLNfxsfiqln (DILAUDID) 0.5 mg/mL injection 0.5-1.5 mg HYDROmorphone (DILAUDID) 0.5 mg/mL injection 1 mg (1 source)Start: 09-05-2018 End: 52-30-9926FTVFDatsnktjw (DILAUDID) 0.5 mg/mL injection 1 mgHYDROmorphone (DILAUDID) injection 0.5 mg (1 source)Start: 03-17-2025 End: 50.5 mg, Intravenous, Every 10 min PRN, Pain, Starting on Mon03/17/25 at 1601, For 6 doses, PACU (only), Give if fentanyl not effective or not ordered. Do not give more than 3 mg total.HYDROmorphone in 0.9 % NaCl (DILAUDID) 15 mg/30 mL (0.5 mg/mL) FINANCE MGR (1 source)Start: 09-06-2018 End: 50-91-3547XKBRTjkvyvpky in 0.9 % NaCl (DILAUDID) 15 mg/30 mL (0.5 mg/mL) PCAhydrOXYzine hydrochloride 25 mg oral tablet (2 sources)AntihistamineStart: 05-10-2025 End: 73-56-2806rjra 1 tablet by mouth every six hours as wrgqle60 mg, Oral, EVERY 6 HOURS NEEDED, Starting on 05/10/25 at 1005, Until Mon05/13/25 at 1552, AnxietyiopamidoL (ISOVUE-370) 370 mg iodine /mL (76 %) injection 75 mL (1 source)Start: 11-03-2022 End: 37-46-3871vcojmlubX (ISOVUE-370) 370 mg iodine /mL (76 %) injection 75 mL iopamidoL (ISOVUE-370) 76 % injection 125 mL (3 sources)Start: 04-14-2022 End: 64-98-7036wdnohuygO (ISOVUE-370) 76 % injection 125 mLStart: 01-19-2022 End: 83-91-8667mmrkgvslX (ISOVUE-370) 76 % injection 125 mLStart: 10-21-2019 End: 51-61-8274spcdzecfF (ISOVUE-370) 76 % injection 125 mLiopamidoL (ISOVUE- 370) 76 % injection 75 mL (1 source)Start: 04-14-2022 End: 74-33-7505swanolwqU (ISOVUE-370) 76 % injection 75 mL1 ml ketorolac tromethamine 30 mg/ml injection (2 sources)Nonsteroidal Anti-inflammatory Drug, Cyclooxygenase InhibitorStart: 10-09-2018 End: 01-08-2994hylq 15 mg intravenous route every six hoursketorolac (TORADOL) injection 15 mg End: 76-33-1765qsovqxcqe (ACULAR) 0.5 % ophthalmic solution4 ml labetalol [...] mg/ml topical lotion (13 sources)Start: 12-28-2021 End: 37-52-6918wriqgzos lactate (LAC-HYDRIN) 12 % lotion Apply topically 2 (two) times a day . 400 g 2 12/28/2021 11/08/2022 Discontinued (Stop Taking at Discharge)lactobacillus combo no.11 (PROBIOTIC) 15 billion cell CpSP (8 sources) End: 28-81-6648ekuojxldlooog combo no.11 (PROBIOTIC) 15 billion cell CpSP Take by mouth . 0 03/13/2019 Discontinued (Therapy completed)lactobacillus combo no.11 (PROBIOTIC) 15 billion cell CpSP Take by mouth . 0 Activelactulose 667 mg/ml oral solution (2 sources)Osmotic LaxativeStart: 05-11-2025 End: 27-69-675249 g, Oral, 2 TIMES DAILY NEEDED, Starting on Mon05/11/25 at 0916, Until Mon05/13/25 at 1552, Constipation 1st Linelidocaine hydrochloride 0.02 mg/mg topical gel (1 source)Antiarrhythmic, Amide Local AnestheticStart: 03-17-2025 End: Application, Intra-urethral, As needed, For insertion of Urinary Catheter, Starting on Mon03/17/25 at 2111, For 1 doselosartan potassium 50 mg oral tablet (20 sources)Angiotensin 2 Receptor BlockerStart: 05-09-2025 End: 85-13-2839pzhf 25 mg by mouth once daily25 mg, Oral, DAILY, First dose on Mon05/09/25 at 0900, Until DiscontinuedStart: 55-97-9385kybd 1 tablet by mouth twice dailyStart: 04-25-2022 End: 78-29-8549nmqd 1 tablet by mouth once dailylosartan (Cozaar) 50 MG tablet Indications: Benign essential hypertension Take 1 tablet (50 mg) by mouth Daily 100 tablet 3 07/29/2024 ActiveStart: 04-15-2022 End: 14-31-6674csrg 50 mg by mouth once daily50 mg, Oral, Daily, First dose on Mon04/15/22 at 0900Start: 01-19-2022 End: 20-74-6474yrxb 50 mg by mouth once daily at lunch50 mg, Oral, Daily with lunch, First dose on Mon01/19/22 at 1200Start: 09-25-2019 End: 41-58-2376jgrr 1 mg by mouth once dailylosartan 25 mg Tab mg tab(s), Oral, Daily, Refills(s) 0 Start Date: 08/04/20 Status: Orderedtake 0.5 tablet by mouth once dailylosartan 50 MG tablet Take 0.5 tablets by mouth daily. 0 Active losartan 50 MG tablet Take 25 mg by mouth daily. 0 Activemagnesium citrate 58.2 mg/ml oral solution (9 sources)Start: 09-13-2018 End: 61-58-7750ndwlggpci citrate solution Take 296 mL by mouth as needed (Take if no bowel movement for 2-3 days) . 296 mL 0 09/13/2018 10/12/2018 Discontinued Start: 09-05-2018 End: 07-64-8712ppit 296 mL by mouth kksm233 mL, Oral, Once, Mon09/05/18 at 1700, For 1 dosemagnesium hydroxide 80 mg/ml oral suspension (1 source)Start: 01-19-2022 End: 51-84-9823jycszwsgv hydroxide (MOM) 400 mg/5 mL suspension 2,400 mg melatonin 3 mg oral tablet (4 sources)Start: 05-09-2025 End: 69-83-2976aogf 6 mg by mouth once daily at bedtime as needed6 mg, Oral, DAILY AT BEDTIME NEEDED, Starting on Mon05/09/25 at 0220, Until Mon05/13/25 at 1552,InsomniaStart: 03-14-2025 End: 11-67-4168Jnula: 01-19-2022 End: 13-06-1877vvjhnfgbj Tab 5 mgnaloxegol 12.5 mg oral tablet (1 source)Opioid AntagonistStart: 09-12-2018 End: 13-24-7076nuivcntfd (MOVANTIK) tablet 12.5 mgnaloxone (NARCAN) injection 0.1 mg (6 sources)Start: 03-14-2025 End: 63-29-5007oznxisaw (NARCAN) injection 0.1 mgStart: 11-04-2022 End: 71-52-3490snhvtjzr (NARCAN) injection 0.1 mgStart: 04-15-2022 End: 42-01-4237vmyopksa (NARCAN) injection 0.1 mgStart: 01-19-2022 End: 87-61-4191leaolmyq (NARCAN) injection 0.1 mgStart: 10-08-2018 End: 92-97-3116kwttsfbr (NARCAN) injection 0.1 mgStart: 09-07-2018 End: 55-00-3258iaktjvuy (NARCAN) injection 0.1 mgnepafenac 3 mg/ml ophthalmic suspension (1 source)Nonsteroidal Anti-inflammatory Drug End: 38-20-6372ygtzixece (Ilevro) 0.3 % DrpSondansetron (ZOFRAN-ODT) disintegrating tablet 4 mg (4 sources)Start: 11-03-2022 End: 67-91-7986zlri 1 tablet by mouth every six hours as needed for nausea and vomitingondansetron (ZOFRAN-ODT) disintegrating tablet 4 mgStart: 04-15-2022 End: 82-16-6385qcas 1 tablet by mouth every six hours as needed for nausea and vomitingondansetron (ZOFRAN-ODT) disintegrating tablet 4 mgStart: 01-19-2022 End: 52-36-4076smuz 1 tablet by mouth every six hours as needed for nausea and vomitingondansetron (ZOFRAN-ODT) disintegrating tablet 4 mgStart: 10-08-2018 End: 60-70-3040rpgt 1 tablet by mouth every six hours as neededondansetron (ZOFRAN-ODT) disintegrating tablet 4 mgOndansetron 4mg/2ml (ZOFRAN) injection 4 mg (2 sources)Start: 05-09-2025 End: 32-39-3873dhdw 4 mg intravenously every six hours as neededOndansetron 4mg/2ml (ZOFRAN) injection 4 mgoxyCODONE hydrochloride 5 mg oral tablet (16 sources)Opioid AgonistStart: 03-17-2025 End: 41-33-8955nwye 5-10 mg by mouth every four hours [...] dose reduc tion, call physician.Start: 07-15-2021 End: 91-49-8087mofq 1-2 tablets by mouth every four to six hours as needed for painoxyCODONE 5 MG tablet Indications: Acute postoperative pain of right hip Take 1-2 tabs po q 4-6 hours PRN pain. Wean as tolerated. 40 tablet 07/15/2021 05/09/2025 DiscontinuedStart: 09-07-2018 End: 70-41-4098tabe 1 tablet by mouth every six hours as needed for pain oxyCODONE (ROXICODONE) 5 MG immediate release tablet Indications: Ischemic foot , Critical lower limb ischemia Take 1 (one) tablet (5 mg total) by mouth every 6 (six) hours as needed for pain . 28 tablet 0 09/13/2018 09/20/2018 ActiveStart: 09-04-2018 End: 09-86-3867kuyb 5-10 mg by mouth every four hours [...] mg/ml nasal spray (2 sources)Start: 01-19-2022 End: 73-73-6510ftxmyeknbfaka (AFRIN) 0.05 % nasal spray 2 spray End: 71-53-6680blbcyunaombig (AFRIN) 0.05 % nasal spray Instill 2 sprays into each nostril 2 (two) times a day as needed for congestion . 0 10/12/2018 Discontinuedpantoprazole 40 mg delayed release oral tablet (18 sources)Proton Pump InhibitorStart: 05-09-2025 End: 34-84-2533suwh 40 mg by mouth once daily40 mg, Oral, DAILY, First dose on Mon05/09/25 at 0900, Until Discontinued, Swallow whole; do not crush or chew., Indications: Continuation of Home TherapyStart: 03-15-2025 End: 28-76-5996gryf 40 mg by mouth once daily40 mg, Oral, Daily, First dose on Mon03/15/25 at 0900, DO NOT CRUSH OR CHEW.Start: 11-03-2022 End: 13-14-1879vwyt 40 mg by mouth twice daily40 mg, Oral, 2 times daily, First dose on Prerna 11/03/22 at 2230 DO NOT CRUSH OR CHEW.Start: 04-15-2022 End: 89-55-6048rwio 40 mg by mouth once daily40 mg, Oral, Daily, First dose on Mon04/15/22 at 0900 DO NOT CRUSH OR CHEW.Start: 01-19-2022 End: 76-12-2639cljr 40 mg by mouth once daily40 mg, Oral, Daily, First dose on Mon01/19/22 at 0900 DO NOT CRUSH OR CHEW.Start: 10-12-2018 End: 08-19-9634qwvs 1 tablet by mouth once dailypantoprazole (PROTONIX) 40 MG tablet Take 1 (one) tablet (40 mg total) by mouth daily . 30 tablet 03/13/2019 Discontinued (Therapy completed)Start: 10-09-2018 End: 88-67-4987lvyokjznirkb (PROTONIX) injection 40 mgperflutren lipid microspheres (DEFINITY) 0.143 mg/mL solution 0-10 mL of mixture (2 sources)Start: 11-06-2022 End: 63-80-2032bgwhfstzuy lipid microspheres (DEFINITY) 0.143 mg/mL solution 0- 10 mL of mixtureStart: 10-08-2018 End: 72-93-5097cpdfkgcdaq lipid microspheres (DEFINITY) 0.143 mg/mL solution 0- 10 mL of mixturepolyvinyl alcohol 0.014 ml/ml ophthalmic solution (1 source)Start: 03-14-2025 End: drop, Both Eyes, As needed, dry eyes, Starting on Mon03/14/25 at 2025prochlorperazine 5 mg/ml injectable solution (2 sources)PhenothiazineStart: 03-18-2025 End: 37-51-8470igev 2.5 mg intravenously every six hours as needed for nausea2.5 mg, Intravenous, Every 6 hours PRN, nausea, Starting on Mon03/18/25 at 0202, If IV, give slow IV push at a rate not exceeding 5 mg/minute and remain lying down for 30 minutes to reduce risk of hypotension. If IM, inject deep into outer buttocks quadrant.Start: 09-06-2018 End: 13-34-8549oxxw 5 mg intravenous route every six hours as needed prochlorperazine (COMPAZINE) injection 5 mgsennosides, penitent[facility] 8.6 mg oral tablet (15 sources)Start: 05-11-2025 End: 00-28-1681xsek 8.6 mg by mouth twice daily8.6 mg, Oral, 2 TIMES DAILY, First dose (after last modification) on Mon05/11/25 at 0930, Until Discontinued Start: 09-04-2011 End: 86-73-9382bjzp 8.6 mg by mouth once daily as needed for constipation8.6 mg, Oral, DAILY NEEDED, Starting on Mon05/09/25 at 0221, Until Mon05/11/25 at 0916, Constipation 1st Linesildenafil 100 mg oral tablet (10 sources)Phosphodiesterase 5 InhibitorStart: 05-10-2017 End: 81-24-1651trih 1 tablet by mouth once daily as neededSildenafil 100 mg Tablet Discontinued 100 MG PO Daily as needed for Erectile Dysfunction May 10, 2017 12:00am October 12, 2023 9:62hc521 ml sodium chloride 9 mg/ml injection (19 sources)Start: 05-09-2025 End: 59-06-4343Yrofhdiuxwr, at 20 mL/hr, NEEDED, Starting on Mon05/09/25 [...] stream; Upside down a drop.Start: 03-14-2025 End: 14-02-2901kdwoza chloride (PF) (NS) flush 5 mLStart: 11-05-2022 End: 27-53-5388cnsnty chloride (OCEAN) 0.65 % nasal spray 1 sprayStart: 11-03-2022 End: 48-02-0225jeueuq chloride (PF) (NS) flush 5 mLStart: 11-03-2022 End: 51-29-7700pxxpne chloride (PF) (NS) flush 5 mLStart: 04-15-2022 End: 76-12-1390socchx chloride (PF) (NS) flush 5 mLStart: 04-14-2022 End: 12-89-5078wvwllp chloride (PF) (NS) flush 5 mLStart: 01-19-2022 End: 18-74-7132ewyqxj chloride (PF) (NS) flush 5 mLStart: 01-18-2022 End: 59-83-1624hwneth chloride 0.9% (NS) bolus 1,000 mLStart: 10-09-2018 End: 91-66-6759wnhxwm chloride 0.9% (NS)Start: 09-11-2018 End: 37-74-3479kcupsw chloride 0.9% (NS)Start: 09-05-2018 End: 24-09-4707hrri 125 mL intravenous route every tjef002 mL/hr, Intravenous, Continuous, Starting 09/05/18 at 1700, For 3 hoursStart: 09-05-2018 End: 75-05-4562uyilix chloride 0.9% (NS)sodium chloride (PF) (NS) 0.9 % contrast line flush 10 mL (1 source)Start: 01-19-2022 End: 45-28-0738czcvmc chloride (PF) (NS) 0.9 % contrast line flush 10 mL therapeutic multivitamin-minerals tablet (10 sources)Start: 07-15-2021 End: 77-38-4197yjjt 1 tablet by mouth at bedtimetherapeutic multivitamin- minerals tablet Take 1 tablet by mouth at bedtime. 30 tablet 07/15/202107/2025 Discontinued (Medication Reconciliation (suppress cancel msg))Start: 00-75-3847nxny 1 tablet by mouth at bedtimetherapeutic multivitamin-minerals tablet Take 1 tablet by mouth at bedtime. 30 tablet 0 07/15/2021 Dnjfqe95 actuat tiotropium 0.0025 mg/actuat inhalation spray (12 sources)AnticholinergicStart: 01-22-2022 End: 71-28-8403hyhx 2 puff(s) by inhalation once dailytiotropium bromide (SPIRIVA RESPIMAT) 2.5 mcg/actuation Mist Inhale 2 (two) puffs daily Start: 01/22/22. 4 g 2 01/22/2022 11/08/2022 Discontinued (Stop Taking at Discharge) Start: 01-22-2022 End: 67-52-8239jrah 2 puff(s) by inhalation once dailytiotropium bromide (SPIRIVA RESPIMAT) 2.5 mcg/actuation Mist Inhale 2 (two) puffs daily Start: 01/22/22. 4 g 2 01/22/2022tart: 01-19-2022 End: 68-64-7446vjtuevywxr bromide (SPIRIVA RESPIMAT) 2.5 mcg/actuation inhaler 2 puff10 ml tranexamic acid 100 mg/ml injection (3 sources)Antifibrinolytic AgentStart: 05-10-2025 End: 41-45-0070378 mg, Nebulization, 2 TIMES DAILY, First dose on 05/10/25 at 0900, Until Discontinued, For nebulization only.Start: 70-90-7345gmxw 500 mg by inhalation three times dailytraZODone hydrochloride 50 mg oral tablet (1 source)Serotonin Reuptake InhibitorStart: 10-04-2018 End: 26-58-9660fboJRFuhv (DESYREL) tablet 50 mgurea 400 mg/ml topical cream (10 sources) End: 52-51-6960yead (CARMOL) 40 % Crea 03/14/2025 Discontinued (Therapy completed)150 ml vancomycin 5 mg/ml injection (1 source)Glycopeptide AntibacterialStart: 11-04-2022 End: 04-54-3703bhzh 750 mg intravenously every twelve hoursvancomycin (VANCOCIN) 750 mg in sodium chloride 0.9% (NS) 150 mL IVPBvancomycin (VANCOCIN) 1,500 mg in sodium chloride 0.9 % (NS) 500 mL IVPB (1 source)Start: 10-08-2018 End: 83-70-9028yeyi 1500 mg intravenous route every twelve hoursvancomycin (VANCOCIN) 1,500 mg in sodium chloride 0.9 % (NS) 500 mL IVPBvancomycin (VANCOCIN) 1,750 mg in sodium chloride 0.9 % (NS) 500 mL IVPB (3 sources)Start: 10-12-2018 End: 44-87-7477uylkeszhoe (VANCOCIN) 1,750 mg in sodium chloride 0.9 % (NS) 500 mL IVPBStart: 10-11-2018 End: 19-79-5344lguypiwief (VANCOCIN) 1,750 mg in sodium chloride 0.9 % (NS) 500 mL IVPBStart: 10-04-2018 End: 95-46-0353ypdsmsecds (VANCOCIN) 1,750 mg in sodium chloride 0.9 % (NS) 500 mL IVPBvancomycin (VANCOCIN) 1750 mg in sodium chloride 0.9% (NS) 500 mL IVPB (1 source)Start: 01-20-2022 End: 34-25-7160bjaufiplkh (VANCOCIN) 1750 mg in sodium chloride 0.9% (NS) 500 mL IVPBvancomycin (VANCOCIN) 2,500 mg in sodium chloride 0.9 % (NS) 500 mL IVPB (1 source)Start: 11-03-2022 End: 10-71-6493rpryeheazh (VANCOCIN) 2,500 mg in sodium chloride 0.9 % (NS) 500 mL IVPBvancomycin (VANCOCIN) 2000 mg in sodium chloride 0.9% 500 mL IVPB (1 source)Start: 01-18-2022 End: 83-46-8519deyedygbgi (VANCOCIN) 2000 mg in sodium chloride 0.9% 500 mL IVPB Vancomycin HCl in NaCl (Vancocin) 1,250 mg 287.5 ml premade IVPB (2 sources)Start: 05-09-2025 End: 56-85-2615uqnq 1250 mg intravenously every twelve hours1,250 mg, Intravenous, Administer over 2 Hours, EVERY 12 HOURS NON-STANDARD, First dose (after lastreorder) on Mon05/09/25 at 1830, Until Discontinued, Indication for treatment with Vancomycin - Culture/Source: infected bullae vs lung abscess Vancomycin HCl in NaCl (Vancocin) 1,500 mg 290 ml premade IVPB (4 sources)Start: 05-10-2025 End: 08-44-4505hbrf 1500 mg intravenously every twelve hours1,500 mg, [...] Translations: [Non- ST elevation (NSTEMI) myocardial infarction]Onset: 24-46-7865HcbvqreFpjkbi; peripheral; and visceral artery aneurysms (20 sources)Thoracic aortic aneurysm, without rupture; Translations: [Abdominal aortic aneurysm]Onset: 267120-05-6212LvazfdsPrkdfb (20 sources)Asthmatic bronchitis; Translations: [Unspecified asthma, uncomplicated]Onset: 642285-20-1226LcjerfzNrqzgy of prostate (20 sources)Malignant tumor of prostate; Translations: [Malignant neoplasm of prostate]Onset: 474761-99-8895RssofyvVjpqex of prostate (9 sources)History of malignant neoplasm of prostate; Translations: [Personal history of malignant neoplasm ofprostate]Onset: 797417-64-7950Uujzmbwk Cardiac dysrhythmias (20 sources)Paroxysmal atrial fibrillation; Translations: [Paroxysmal atrial fibrillation]Onset: 842402-98-1099EtgrllpElkbxzu kidney disease (20 sources)Chronic kidney disease stage 3A ; Translations: [Stage 3a chronic kidney disease (HCC)]Onset: 873130-06-2604FytdxznWworzyv obstructive pulmonary disease and bronchiectasis (20 sources)Chronic obstructive lung disease; Translations: [Chronic obstructive pulmonary disease, unspecified]Onset: 10-30-2022 Resolved: 25-06-6332NojladsSrysvek obstructive pulmonary disease and bronchiectasis (6 sources)Bronchitis, not specified as acute or chronic; Translations: [Bronchitis]Onset: 177496-84-0248XxsreqcsExoohxt ulcer of skin (20 sources)Ulcer of toe; Translations: [Ischemic ulcer of toe]Onset: 04-14-2025 90-62-5476JerdwjeAqkjbjoqnwb and hemorrhagic disorders (20 sources)Thrombophilia; Translations: [Other thrombophilia]Onset: 03-21-2024 40-54-1785IbatpswZdxjumrndems of device; implant or graft (20 sources)Arteriosclerosis of coronary artery bypass graft; Translations: [Atherosclerosis of coronary arterybypass graft(s) without angina pectoris] Onset: 557079-14-8414NltamqlLzzjpxncpraw of device; implant or graft (1 source)Joint pain; Translations: [Pain due to internal orthopedic prosthetic devices, implants and grafts,subsequent encounter]EpisodicConditions associated with dizziness or vertigo (1 source)Dizziness and giddiness; Translations: [Dizziness and giddiness]Onset: 85-99-8479FubhpteqBbsqyfucbg heart failure; nonhypertensive (20 sources)Acute on chronic diastolic (congestive) heart failure; Translations: [Chronic heart failure co-occurrent with normal ejection fraction]Onset: 49-51-5166XzglzpwOvjeaxhy atherosclerosis and other heart disease (20 sources)Coronary atherosclerosis; Translations: [Atherosclerotic heart disease of [place] coronary artery without angina pectoris]Onset: 07-04-2008 10-44-3378TnhlxfdZuruwndugn and other anemia (13 sources)Anemia; Translations: [Anemia, unspecified]Onset: 05-09-2025 16-05-4198IympntteJzbqcjyto of lipid metabolism (20 sources)Hypercholesterolemia; Translations: [Pure hypercholesterolemia, unspecified]Onset: 08-30-2013 Resolved: 432745-31-5243WjvirufWdupsxdnf of teeth and jaw (1 source)Arthralgia of bilateral temporomandibular joint; Translations: [Bilateral temporomandibular joint pain]Essential hypertension (20 sources)Essential hypertension; Translations: [Essential (primary) hypertension]Onset: 706468-98-1124AggqpnlZcjyotht (14 sources)Gangrene of left foot; Translations: [Gangrene of left foot]Onset: 216045-75-9623Xninaomwijgex symptoms and ill-defined conditions (9 sources)Nocturia; Translations: [Dysuria]27-12-0678EuiwzzkjBdpqn valve disorders (20 sources)Aortic valve regurgitation; Translations: [Nonrheumatic aortic (valve) insufficiency]Onset: 716963-12-7235CyktsjuWzsuoqaposf of prostate (9 sources)Benign prostatic hypertrophy with outflow obstruction; Translations: [Benign prostatic hyperplasia with lower urinary tract symptoms]Onset: 020782-63-1198NhfabgzNbaqzkcnlduo with complications and secondary hypertension (20 sources)Chronic kidney disease due to hypertension; Translations: [Hypertensive chronic kidney disease withstage 1 through stage 4 chronic kidney disease, or unspecified chronic kidney disease]Onset: ChronicInfective arthritis and osteomyelitis (except that caused by tuberculosis or sexually transmitted disease) (20 sources)Osteomyelitis of right foot; Translations: [Osteomyelitis, unspecified]Onset: 726001-98-4069OeglgwsZbciikgxnddfn mental health disorders (5 sources)Primary insomnia; Translations: [Primary insomnia]56-87-6174Xblykxn Occlusion or stenosis of precerebral arteries (20 sources)Bilateral stenosis of carotid arteries; Translations: [Occlusion and stenosis of bilateral carotid arteries]Onset: 87-20-8107XseqimeMxumkwnsk or stenosis of precerebral arteries (2 sources)Bilateral carotid artery stenosis; Translations: [Bilateral carotid artery stenosis]Osteoarthritis (20 sources)Arthritis; Translations: [Unspecified osteoarthritis, unspecified site]Onset: 211450-59-6117NkoiocjBvmnr and ill-defined heart disease (4 sources)Heart disease, unspecified; Translations: [HEART DISEASE UNSPECIFIED] Onset: 28-56-4184JcwlcwjVbleh bone disease and musculoskeletal deformities (2 sources)History of amputation of foot; Translations: [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 (HCC)]ChronicOther bone disease and musculoskeletal deformities (16 sources)History of amputation of left foot; Translations: [Acquired absence of left foot]Onset: 864889-21-1140GinaoswRtmsm bone disease and musculoskeletal deformities (20 sources)Absence of lower limb; 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]Onset: 706837-48-5496KaotpebMwplr bone disease and musculoskeletal deformities (14 sources)Amputated foot; Translations: [Acquired absence of unspecified foot] Onset: 071955-35-7452MygsvufWuicj circulatory disease (20 sources)Critical lower limb ischemia ; Translations: [Critical lower limb ischemia]Onset: 291349-35-9650CavycqgMqmoi circulatory disease (1 source)Other disorder of circulatory system; Translations: [Ischemic foot] EpisodicOther circulatory disease (5 sources)History of arterial bypass of lower limb artery; Translations: [S/P bypass graft of extremity]EpisodicOther circulatory disease (2 sources)Other specified symptoms and signs involving the circulatory and respiratory systemsEpisodicOther circulatory disease (1 source)Critical lower limb ahvcktzt98-34-3072WprflbxlFqqxt circulatory disease (2 sources)Wheeze - rhonchi; Translations: [Other specified symptoms and signs involving the circulatory and respiratory systems]65-61-7051KldwfdxkUohya connective tissue disease (20 sources)History of total hip arthroplasty; Translations: [Presence of unspecified artificial hip joint]Onset: 418280-36-9603IwhgeteImeuq connective tissue disease (3 sources)History of total replacement of right hip joint; Translations: [Presence of right artificial hip joint]ChronicOther connective tissue disease (2 sources)Presence of right artificial hip joint; Translations: [Presence of right artificial hip joint]Onset: 20-97-6480MrqbusoOwjmj connective tissue disease (20 sources)Polymyalgia rheumatica; Translations: [Polymyalgia rheumatica]Onset: 135544-09-4485GqrnixsFbwys connective tissue disease (2 sources)Pain in left foot; Translations: [Left foot pain]EpisodicOther connective tissue disease (2 sources)Pain in left leg; Translations: [Pain in left leg]Onset: 08-29-2018 EpisodicOther connective tissue disease (2 sources)Pain in leg, unspecified; Translations: [Pain in leg, unspecified] Onset: 30-93-5518BwslbtirQpvza connective tissue disease (3 sources)Pain in right lower limb; Translations: [Pain in right leg]Episodic Other connective tissue disease (2 sources)Pain in right leg; Translations: [Pain in right leg]Onset: 03-14-2025 EpisodicOther connective tissue disease (2 sources)Posterior tibial tendinitis, right leg; Translations: [Posterior tibial tendinitis, right leg]Onset: 55-34-5623ClslopjyYnniy connective tissue disease (1 source)Pain in right foot; Translations: [Pain in right foot]Onset: 80-92-1442XltlevozYekiz diseases of kidney and ureters (1 source)Urinary tract obstruction; Translations: [Other obstructive and reflux uropathy]Onset: 28-80-6696XfhgcyxhFdekq ear and sense organ disorders (1 source)Referred otalgia; Translations: [Referred otalgia of right ear] EpisodicOther ear and sense organ disorders (6 sources)Acute eczematoid otitis externa; Translations: [Acute eczematoid otitis externa, right ear]Onset: 383686-33-3572IqhuczwbTvfsc hematologic conditions (1 source)Raised cardiac enzyme or marker; Translations: [Other specified abnormalities of plasma proteins]EpisodicOther lower respiratory disease (20 sources)Hemoptysis; Translations: [Hemoptysis]Onset: EpisodicOther lower respiratory disease (2 sources)Abscess of lung; Translations: [Abscess of lung without pneumonia] 94-42-8261HnywxpbwXovat lower respiratory disease (2 sources)Hemoptysis; Translations: [Hemoptysis]Onset: 37-47-4792YhydmgzgDcnku lower respiratory disease (1 source)Dyspnea, unspecified; Translations: [Dyspnea, unspecified]Onset: 79-70-4780RyrplsjcEedeq lower respiratory disease (1 source)Abscess of lung without pneumonia; Translations: [Abscess of lung without pneumonia]Onset: 28-56-2525TbroaehzCmzxa male genital disorders (3 sources)Doesmflsn85-23-9597YtlyockSvwio male genital disorders (3 sources)Impotence of organic -64-9799YhfqbwpElrjq male genital disorders (2 sources)Male erectile dysfunction, unspecified; Translations: [Erectile dysfunction]Onset: 10-68-2459SvpgdpeEslej male genital disorders (20 sources)Secondary erectile dysfunction; Translations: [Male erectile dysfunction, unspecified]Onset: 856028-46-1120TwgrgxaUhdse nervous system disorders (20 sources)Neuropathy; Translations: [Polyneuropathy, unspecified]Onset: 797355-57-0465RbnlyaiScjgf nervous system disorders (20 sources)Chronic pain; Translations: [Other chronic pain]Onset: 04-09-2023 01-43-6642YiulbhmQnmnk nervous system disorders (20 sources)Phantom limb syndrome with pain; Translations: [Phantom limb syndrome with pain]Onset: 594186-91-0919WtatihvXvthk nervous system disorders (20 sources)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; Translations: [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]Onset: 892414-69-3339RovsqtfEriqs nervous system disorders (1 source)Acute postoperative pain; Translations: [Acute post-operative pain] EpisodicOther nervous system disorders (2 sources)Other acute postprocedural pain; Translations: [Other acute postprocedural pain]Onset: 52-24-4316DbwihvshIohqg nervous system disorders (1 source)Skin tenderness; Translations: [Other disturbances of skin sensation] EpisodicOther nutritional; endocrine; and metabolic disorders (20 sources)Obesity; Translations: [Obesity, unspecified]Onset: 09-05-2018 24-48-2803BdpprrqBnyyx nutritional; endocrine; and metabolic disorders (20 sources)Disorder of lipid metabolism; Translations: [Disorder of lipoprotein metabolism, unspecified]Onset: 195323-79-3088ZnzwqrhTmeqt screening for suspected conditions (not mental disorders or infectious disease) (20 sources)Radiology result abnormal; Translations: [Abnormal findings on diagnostic imaging of other specified body structures]Onset: 04-09-2023 00-05-1037XmrbigbJpedm screening for suspected conditions (not mental disorders [...] allergic rhinitis; Translations: [Other seasonal allergic rhinitis]Onset: 236880-35-7448YlywacxTatrd upper respiratory disease (6 sources)Allergic rhinitis due to pollen; Translations: [Allergic rhinitis due to pollen]22-20-9832VgdtcoaQakiu upper respiratory infections (2 sources)Upper respiratory infection; Translations: [Acute upper respiratory infection, unspecified]32-74-3462PqgdegveOtbfvyseqh and visceral atherosclerosis (20 sources)Peripheral vascular disease; Translations: [Atherosclerosis of [place] arteries of the extremities]Onset: 08-08-2018 Resolved: 81-22-3630YlalyavRndcedkakj and visceral atherosclerosis (1 source)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; Translations: [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)]Pulmonary heart disease (20 sources)Pulmonary hypertension; Translations: [Pulmonary hypertension, unspecified]Onset: 041988-85-6445CkisuiaLkarlzme codes; unclassified (4 sources)Other specified postprocedural statesOnset: 04-19-2022 Resolved: 64-76-1858SipzeltvGrgtbwec codes; unclassified (1 source)Peripheral edema; Translations: [Edema, unspecified]Episodic Respiratory failure; insufficiency; arrest (adult) (3 sources)Acute respiratory failure; Translations: [Acute respiratory failure with hypoxia]Onset: 048055-45-9683QgqlsymrHqnzgrxesmr; intervertebral disc disorders; other back problems (20 sources)Lumbosacral spondylosis without myelopathy; Translations: [Spondylosis without myelopathy or radiculopathy, lumbosacral region]Onset: 452886-01-1948VnqsakzFivjoyqmd-wfbmytg disorders (15 sources)Opioid dependence; Translations: [Opioid dependence, uncomplicated] Onset: 364463-65-5977BgayhxuBlxaytdztsmn (2 sources)Unknown / UNK(Unknown)Onset: 72-37-9359Epraoiydkxjn (3 sources)Asymptomatic microscopic womisoidi83-09-1247Lyczzcemxgmt (3 sources)Drug therapy iyxqpeh61-49-5737Mfksezjzjiqn (1 source)Aneurysm of the ascending aorta, without rupture; Translations: [Aneurysm of the ascending aorta, without rupture]Onset: 18-83-1147Tliolgrjjotz (6 sources)call to schedule follow up with Dr. Michel (1 source)Hematoma of arm, left, initial angnymmzp96-40-3934Iyadrlsigohk (2 sources)Please arrange a follow-up appointment upon discharge from facility. Viral infection (20 sources)Herpes zoster; Translations: [Zoster without complications]Onset: 09-04-2011 Resolved: 066079-98-2598Ulweaeeh Past or Other Problems Problem ClassificationProblemDateDocumented DateEpisodic/ChronicAbdominal pain (20 sources)Abdominal pain; Translations: [Unspecified abdominal pain]Onset: 07-11-2014 Resolved: 251842-34-5548MpuygvylEmksokrxpdhuvd/social admission (2 sources)Patient encounter status; Translations: [Other specified counseling] 16-15-6724ChfvqpxpQzjrcywv (20 sources)Cataract; Translations: [Unspecified cataract]Onset: 04-09-2023 Resolved: 962312-82-7403ArzsljoFlthzsxryhuje of surgical procedures or medical care (20 sources)Late amputation stump complication; Translations: [Other complications of amputation stump]Onset: 902856-60-7574VpycezmiLtvwxwaf atherosclerosis and other heart disease (2 sources)Presence of aortocoronary bypass graft; Translations: [Presence of aortocoronary bypass graft]Onset: 83-99-3770BqggtolpZzaejysi (20 sources)Gangrenous disorder; Translations: [Gangrene, not elsewhere classified]Onset: 10-04-2018 Resolved: 336982-44-9039CthaorbvDardfjfxwcbqn and screening for infectious disease (20 sources)Needs influenza immunization; Translations: [Encounter for immunization]Onset: 06-06-2023 Resolved: 359204-48-9065DknfmqztXimi disorders (20 sources)Mood disordersOnset: 04-26-2024 Resolved: Nausea and vomiting (20 sources)Nausea; Translations: [Nausea]Onset: 06-06-2023 Resolved: 652828-54-5707UgtutsukQqxbqdrxhwu chest pain (20 sources)Other chest pain; Translations: [Chest pain, unspecified]Onset: 08-30-2013 Resolved: 416693-71-6946RvlsxpswKjxhk bone disease and musculoskeletal deformities (20 sources)Avascular necrosis of bone of hip; 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]Onset: 09-04-2011 Resolved: 033773-59-2186XpkewapWubcx connective tissue disease (20 sources)Pain in left lower limb; Translations: [Pain in left leg]Onset: 09-04-2011 Resolved: 225731-41-2054YnxjtstbDebap connective tissue disease (2 sources)Contracture of tendo achilles; Translations: [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, left]EpisodicOther connective tissue disease (20 sources)Tendinitis of right posterior tibial tendon; Translations: [Posterior tibial tendinitis, right leg]Onset: 846534-52-5116PhhuagoeMhnda connective tissue disease (12 sources)Pain in lower limb; Translations: [Pain in right leg]Onset: 334691-34-0266ZrmilwdeAaoqv gastrointestinal disorders (20 sources)Slow transit constipation; Translations: [Slow transit constipation] Onset: 269503-13-3642RqnxxlbfSrfst gastrointestinal disorders (20 sources)Heartburn; Translations: [Heartburn]Onset: EpisodicOther gastrointestinal disorders (20 sources)Constipation; Translations: [Constipation, unspecified]Onset: 04-09-2023 Resolved: 208260-63-6618XcboofgmGnsco hematologic conditions (20 sources)ESR raised; Translations: [Elevated erythrocyte sedimentation rate] Onset: 056187-21-6289TqtqoxhtPhfll injuries and conditions due to external causes (20 sources)Contusion; Translations: [Other injury of unspecified body region, initial encounter]Onset: 07-15-2014 Resolved: 822745-94-7753NpleqgyxViowq lower respiratory disease (20 sources)Nodule of lung; Translations: [Solitary pulmonary nodule]Onset: 70-75-6401DecgrongEhweg lower respiratory disease (20 sources)Solitary nodule of lung; Translations: [Solitary pulmonary nodule] Onset: 951141-07-8246LnojpvwzFsvvq lower respiratory disease (20 sources)Dyspnea; Translations: [Dyspnea, unspecified]Onset: 08-30-2013 18-30-2826XeckvvpeCmtyt lower respiratory disease (20 sources)Orthopnea; Translations: [Orthopnea]Onset: EpisodicOther lower respiratory disease (20 sources)Snoring; Translations: [Snoring]Onset: 991542-80-9936Sveqxvtv Other lower respiratory disease (2 sources)Dyspnea on exertion; Translations: [Other forms of dyspnea]04-26-2024 EpisodicOther lower respiratory disease (1 source)Solitary pulmonary nodule; Translations: [Solitary pulmonary nodule] Onset: 51-75-0066QlfcgrqbEhkbd nervous system disorders (20 sources)Paresthesia; Translations: [Paresthesia of skin]Onset: 04-09-2023 89-28-4653TqkowwbjIdrgp non-traumatic joint disorders (10 sources)Hip pain; Translations: [Pain in unspecified hip]Onset: 09-04-2011 Resolved: 99-98-4870HaheeukwIeect nutritional; endocrine; and metabolic disorders (20 sources)Obese class I; Translations: [Obesity, unspecified]Onset: 08-10-2018 Resolved: 595820-74-4488CtfbpfjSddme upper respiratory infections (20 sources)Sinusitis; Translations: [Chronic sinusitis, unspecified]Onset: 04-09-2023 Resolved: 727394-56-0648UttwxknIukjkfuoi (except that caused by tuberculosis or sexually transmitted disease) (20 sources)Pneumonia, unspecified organism; Translations: [Community acquired pneumonia]Onset: 10-30-2022 Resolved: 12-12-6411IjypjigsLonvkslp codes; unclassified (2 sources)Edema of lower extremity; Translations: [Lower extremity edema] EpisodicResidual codes; unclassified (20 sources)Insomnia; Translations: [Insomnia, unspecified]Onset: 01-19-2023 56-79-6491KrqflhpzFfkx and subcutaneous tissue infections (20 sources)Cellulitis of left lower limb; Translations: [Cellulitis of left lower limb]Onset: 01-18-2022 Resolved: 91-69-7609IwbqwxscRhqydamuigi; intervertebral disc disorders; other back problems (20 sources)Sciatica; Translations: [Sciatica, left side]Onset: 04-09-2023 87-77-9583UiowholpGvvyeehlgfp injury; contusion (20 sources)Contusion of upper limb; Translations: [Contusion of left upper arm, initial encounter]Onset: 11-04-2022 Resolved: 28-63-9982CsjkquulIbrtocqmuqlj (1 source)Aneurysm of the ascending aorta, without rupture; Translations: [Aneurysm of the ascending aorta, without rupture]Onset: 32-38-3844Aihsdxneypxy (5 sources)Peripheral artery -43-2601Ksixwlt tract infections (20 sources)Acute cystitis; Translations: [Acute cystitis without hematuria] Onset: 03-21-2024 Resolved: 775137-10-4384Imhgwgxf Results Test NameValueInterpretationReference RangeFacilityLIPID PANEL, STANDARDon 21-15-0916Sonlhviemef [Mass/Vol]119 mg/dLNormal<200Quest DiagnosticsComment on above:Order Comment: FASTING:YES FASTING: YESPerformed By: #### [id number] #### [facility] [address], [address] [place] [phone] Dress Cap Maker: Gene Liang MDCholesterol in HDL [Mass/Vol]41 mg/dLNormal> OR = 40Quest DiagnosticsComment on above:Order Comment: FASTING:YES FASTING: YESPerformed By: #### 7600 #### [facility] [address], [address] [place] [phone] Dress Cap Maker: Gene Liang MDCholesterol in LDL [Mass/Vol]61 mg/dLNormal [facility] DiagnosticsComment on above:Order Comment: FASTING:YES FASTING: YESResult Comment: Reference range: <100 Desirable range <100 mg/dL for primary prevention; <70 mg/dL for patients with CHD or diabetic patients with > or = 2 CHD risk factors. LDL-C is now calculated using the Gabino calculation, which is a validated novel method providing better accuracy than the Friedewald equation in the estimation of LDL-C. José Manuel SS et al. SHANTAL. 2013;310(19): 7628-7329 (http://education.Antengo/faq/LLR093)Performed By: #### 7600 #### [facility] [address], [address] [place] [address] Dress Cap Maker: Gene MCWILLIAMSholesterol.total/Cholesterol in HDL [Mass ratio]2.9 {ratio}Normal<5.0Quest DiagnosticsComment on above:Order Comment: FASTING:YES FASTING: YESPerformed By: #### 7600 #### [facility] [address], [address] [place] [address] Dress Cap Maker: Gene RUBIO HDL SWTECANWYZD54 mg/dL (calc)Normal<130 Quest DiagnosticsComment on above:Order Comment: FASTING:YES FASTING: YESResult Comment: For patients with diabetes plus 1 major ASCVD risk factor, treating to a non-HDL-C goal of <100 mg/dL (LDL-C of <70 mg/dL) is considered a therapeutic option.Performed By: #### 7600 #### [facility] [address], [address] [place] [address] Dress Cap Maker: Gene Liang MDTriglyceride [Mass/Vol]88 mg/dLNormal<150Quest DiagnosticsComment on above:Order Comment: FASTING:YES FASTING: YESPerformed By: #### 7600 #### [facility] [address], [address] [place] [address] Dress Cap Maker: Gene Liang MDACID FAST SMEARon 26-89-2322DGWW FAST SMEAR Acid Fast Smear Negative [facility] HealthcareAFB SPECIMEN PROCESSINGon 10-65-0063ZTQ SPECIMEN PROCESSING AFB Specimen Processing [facility] HealthcareAFB SPECIMEN PROCESSINGTissue GrindingNOMO HealthcareNo Panel Informationon 37-90-0826REUUQGRXURFJF HealthcareUS DUPLEX BYPASS GRAFT LE LIMITED RIGHTon 05-98-3758CO DUPLEX BYPASS GRAFT LE LIMITED RIGHTPatient Info Name: Tristin Powell Age: 85 years : 1940 Gender: Male Exam Date: 06/17/2025 1:26 PM Patient Status: OUTPATIENT Site Location: Indications I73.9 - Peripheral vascular disease, unspecified Procedure Description 50917 Duplex scan of lower extremity arteries or arterial bypass grafts using B-mode, color and spectral Doppler; unilateral or limited study. Assembler Body: Gail SUAREZ, RVS Staff Ordering Provider: Mohsen Sarabia MD, RPVI Conclusions * Difficult exam due to leg edema and scar. * Patent distal superficial femoral/P1 to peroneal bypass graft. * Elevated velocities noted in inflow artery possibly due to mismatch in diameter versus stenosis. * Proximal graft has [...] Artery EDV: 18 Report Signatures Finalized by Gisele Jalloh MD on 06/17/2025 02:54 [facility]US DUP[facility] BYPASS GRAFT LE LIMITED RIGHTPatient Info Name: Tristin Powell Age: 85 years : 1940 Gender: Male Exam Date: 06/17/2025 1:26 PM Patient Status: OUTPATIENT Site Location: Indications I73.9 - Peripheral vascular disease, unspecified Procedure Description 53427 Duplex scan of lower extremity arteries or arterial bypass grafts using B-mode, color and spectral Doppler; unilateral or limited study. Assembler Body: Gail SUAREZ, RVS Staff Ordering Provider: Mohsen Sarabia MD, RPVI Conclusions * Difficult exam due to leg edema and scar. * Patent distal superficial femoral/P1 to peroneal bypass graft. * Elevated velocities noted in inflow artery possibly due to mismatch in diameter versus stenosis. * Proximal graft has [...] Artery EDV: 18 Report Signatures Finalized by Gisele Jalloh MD on 06/17/2025 02:54 PM Dictated by: GISELE JALLOH on MonJun 17, 2025 2:54:49 PM EDT Transcribed by: GISELE JALLOH on MonJun 17, 2025 2:54:49 PM EDT Finalized by: GISELE JALLOH on MonJun 17, 2025 2:54:49 PM EDTNoOhioHealth Dublin Methodist HospitalUS ANKLE/BRACHIAL INDICES EXTREMITY LIMITEDon 43-88-9527XA ANKLE/BRACHIAL INDICES EXTREMITY LIMITEDPatient Info Name: Tristin Powell Age: 85 years : 1940 Gender: Male Exam Date: 06/05/2025 1:16 PM Patient Status: OUTPATIENT Site Location: Indications I73.9 - PVD (peripheral vascular disease) Procedure Description 09998 Limited bilateral noninvasive physiologic studies of upper or lower extremity arteries with bidirectional Doppler/PVR waveform analysis at 1-2 levels. Assembler Body: Ginette Gonzalez RDMS, RVS Staff Ordering Provider: [...] to amputation. * Previous YAMILE done at [facility]- Right: 0.96 Left: 0.57. Recommendations * This [...] Segmental BP RIGHT Brachial A mmH RIGHT STAFF APPRAISER mmH RIGHT STAFF APPRAISER Index: 0.90 RIGHT DPA mmH RIGHT DPA Index: 0.80 RIGHT YAMILE Index: 0.90 LEFT Brachial A mmH LEFT STAFF APPRAISER Index: 0.65 LEFT STAFF APPRAISER mmH LEFT DPA Index: 0.80 LEFT DPA mmH LEFT YAMILE Index: 0.80 Doppler RIGHT STAFF APPRAISER Waveform: Multiphasic RIGHT DPA Waveform: Multiphasic LEFT STAFF APPRAISER Waveform: Multiphasic LEFT DPA Waveform: Multiphasic , PVR RIGHT Ankle Grade: Abnormal RIGHT Transmetarsal Grade: Abnormal RIGHT Digit (PPG) Grade: Abnormal LEFT Ankle Grade: Abnormal Prior Interventions 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 Report Signatures Finalized by Eliud Cervantes MD on 06/05/2025 02:48 [facility] [place] [facility] ANKLE/BRACHIAL INDICES EXTREMITY LIMITEDPatient Info Name: Tristin Powell Age: 85 years : 1940 Gender: Male Exam Date: 06/05/2025 1:16 PM Patient Status: OUTPATIENT Site Location: Indications I73.9 - PVD (peripheral vascular disease) Procedure Description 80661 Limited bilateral noninvasive physiologic studies of upper or lower extremity arteries with bidirectional Doppler/PVR waveform analysis at 1-2 levels. Assembler Body: Ginette Gonzalez RDMS, RVS Staff Ordering Provider: [...] to amputation. * Previous YAMILE done at [facility]- Right: 0.96 Left: 0.57. Recommendations * This [...] Segmental BP RIGHT Brachial A mmH RIGHT STAFF APPRAISER mmH RIGHT STAFF APPRAISER Index: 0.90 RIGHT DPA mmH RIGHT DPA Index: 0.80 RIGHT YAMILE Index: 0.90 LEFT Brachial A mmH LEFT STAFF APPRAISER Index: 0.65 LEFT STAFF APPRAISER mmH LEFT DPA Index: 0.80 LEFT DPA mmH LEFT YAMILE Index: 0.80 Doppler RIGHT STAFF APPRAISER Waveform: Multiphasic RIGHT DPA Waveform: Multiphasic LEFT STAFF APPRAISER Waveform: Multiphasic LEFT DPA Waveform: Multiphasic , [...] PM EDT Finalized by: ELIUD CERVANTES on MonJun 05, 2025 2:48:58 PM [facility]TSouth[facility] 14-53-3075Tlsvdxcyme [Mass/Vol]0.77 mg/dLNormal0.70-1.30 [facility] HospitalComment on above:Performed By: #### HH #### [facility] (DEFAULT) [address] [place] [address]KGI/1.73 sq M.predicted among non-blacks MDRD (S/P/Bld) [Vol rate/Area]87 mL/min/{1.73_m2}Normal>=60[facility] HospitalComment on above:Result Comment: Reported eGFR is based on the CKD-EPI 2020 equation using creatinine, age, and sex.Performed By: #### HH #### [facility] (DEFAULT) [address] [address]Pmrrfmosam - Chemistry and Chemistry - challengeon 05-13-2025 Creatinine [Mass/Vol]0.77 mg/dL0.70 - 1.30 mg/dLMetroHealth Main Campus Medical CenterNo Panel Informationon 15-17-1830lNHR, CKD-EPI, Male87- PINCleveland Clinic Mentor HospitalComment on above:Reported eGFR is based on the CKD-EPI 2020 equation using creatinine, age, and sex.Interpretation and review of laboratory resultsNormal OSLourdes Medical Center of Burlington CountyBacteria identified Respiratory culture Nom (Unsp spec)Ordered By: Jacinta Ramirez on 05-12-2025 Bacteria identified Cx Nom (Unsp spec)GrowthOSJoint Township District Memorial HospitalBacteria identified Cx Nom (Unsp spec)Moderate Growth Common oropharyngeal microbesOSU Regency Hospital CompanyMicroscopic observation Other stain Nom (Unsp spec) Neutrophils, RareOSU Regency Hospital CompanyMicroscopic observation Other stain Nom (Unsp spec)Contaminating bacteria and epithelials, LIGHTOSJoint Township District Memorial HospitalMicroscopic observation Other stain Nom (Unsp spec)Specimen is of very poor quality and results may be compromised suggest recollection if clinically i ndicatedOSU Saint Barnabas Medical CenterCBC AND ELECTRONIC DIFFon 82-73-7750Pdo Baso Auto<Normal0.00-0.09[facility]-Rittman HospitalComment on above:Performed By: #### [id number] #### [facility] (DEFAULT) [address] [place] [address]Pwzpmogti/100 WBC (Bld)0.2 %[facility] Medical CenterComment on above:Performed By: #### [id number] #### [facility] (DEFAULT) [address] [place] [address]FIQW STATUSElectronic DifferentialNormalOnco Doctors HospitalComment on above:Performed By: #### [id number] #### [facility] (DEFAULT) [address] [place] [address]Wbkmntlemnh (Bld) [#/Vol]0.05 10*3/uLNormal0.00-0.48[facility]itt[facility] HospitalComment on above:Performed By: #### [id number] #### [facility] (DEFAULT) [address] [place] [address] 35712Zvgpreqsmqk/100 WBC (Bld)0.9 %[facility] Medical CenterComment on above:Performed By: #### [id number] #### [facility] (DEFAULT) [address] [place] [address] 21391Aqblasqjna (Bld) [Volume fraction]29.7 %Low39.6-48.8W[facility]sworth-Rittman HospitalComment on above:Performed By: #### [id number] #### [facility] (DEFAULT) [address] [place] [address] 09265Dgesgnpbpr (Bld) [Mass/Vol]10.0 g/dLLow13.4-16.8W[facility]-Rittman HospitalComment on above:Performed By: #### [id number] #### [facility] (DEFAULT) [address] [place] [address] 33079Gvswerrc Grans %1.8 %[facility] CenterComment on above:Performed By: #### [id number] #### [facility] (DEFAULT) [address] [place] [address] 30441Kwsvfnuc Grans Absolute0.10 K/uLHigh<=0.07W[facility]-Rittman HospitalComment on above:Performed By: #### [id number] #### [facility] (DEFAULT) [address] [place] [address] 72116Nluchlbobjm (Bld) [#/Vol]0.59 10*3/uLLow0.83-3.57W[facility]-Rittman HospitalComment on above:Performed By: #### [id number] #### [facility] (DEFAULT) [address] [place] [address] 57446Pightbmnawc/100 WBC (Bld)10.7 %NormalWadsworth-Rittman HospitalComment on above:Performed By: #### [id number] #### [facility] (DEFAULT) [address] [place] [address] 87926GFX (RBC) [Entitic vol]92.0 gPNrtecq59.0-94.5W[facility]-Rittman HospitalComment on above:Performed By: #### [id number] #### [facility] (DEFAULT) [address] 64[address]Tobc Cell Hgb31.0 svHavasi58.1-33.3W[facility]-Rittman HospitalComment on above:Performed By: #### [id number] #### [facility] (DEFAULT) [address] [place] [address] 20020Uhkp Cell Hgb Conc33.7 g/zPZdtuey62.9-36.5W[facility]-Rittman HospitalComment on above:Performed By: #### [id number] #### [facility] (DEFAULT) [address] [place] [address] 46253Leqmnheuv (Bld) [#/Vol]0.49 10*3/uLNormal0.24-0.93W[facility]sworth-Rittman HospitalComment on above:Performed By: #### [id number] #### [facility] (DEFAULT) [address] [place] [address] 38503Kejabbtlq/100 WBC (Bld)8.9 %NormalWadsworth-Rittman HospitalComment on above:Performed By: #### [id number] #### [facility] (DEFAULT) [address] [place] [address] 25779Nstuplfop RBC0.0 /100 WBCNormal<=0.2W[facility]-Rittman HospitalComment on above:Performed By: #### [id number] #### [facility] (DEFAULT) [address] [place] [address] 74231Dnitorhm mean volume (Bld) [Entitic vol]9.4 fLNormal8.7-12.3 [facility]ittman HospitalComment on above:Performed By: #### [id number] #### [facility] (DEFAULT) [address] [place] [address] 98391Stenrshmj (Bld) [#/Vol]215 10*3/jAKweshy140-658YqahWadsworth-Rittman HospitalComment on above:Performed By: #### [id number] #### [facility] (DEFAULT) [address] [place] [address] 32891VFB (Bld) [#/Vol]3.23 10*6/uLLow4.38-5.83W[facility]ittman HospitalComment on above:Performed By: #### [id number] #### [facility] (DEFAULT) [address] [place] [address] 72348GMQ Gqzwdycuhktk76.5 %High10.9-14.3W[facility]-Rittman HospitalComment on above:Performed By: #### [id number] #### [facility] (DEFAULT) [address] [place] [address] 67931Ypnm + Bands Auto77.5 %NormalWadsworth-Rittman HospitalComment on above:Performed By: #### [id number] #### [facility] (DEFAULT) [address] [place] [address] 34064Uakl + Bands,Absolute Auto4.28 K/uLNormal1.57-6.19[facility]ittman HospitalComment on above:Performed By: #### [id number] #### [facility] (DEFAULT) [address] [place] [address] 48488WMG (Bld) [#/Vol]5.52 10*3/uLNormal3.73-10.10W[facility]ittman HospitalComment on above:Performed By: #### [id number] #### [facility] (DEFAULT) [address] [place] [address] 46653CWKVABNFGEdg 75-65-2841Notlobstai [Mass/Vol]0.78 mg/dLNormal 0.70-1.30W[facility]ittman HospitalComment on above:Performed By: #### CREAB #### [facility] (DEFAULT) [address] [place] [address] 42733FHG/1.73 sq M.predicted among non-blacks MDRD (S/P/Bld) [Vol rate/Area]87 mL/min/{1.73_m2}Normal>=60W[facility]-Rittman HospitalComment on above:Result Comment: Reported eGFR is based on the CKD-EPI 2020 equation using creatinine, age, and sex.Performed By: #### CREAB #### [facility] (DEFAULT) [address] [place] [address] 39984Refsmaykym - Chemistry and Chemistry - challengeon 05-12-2025 Creatinine [Mass/Vol]0.78 mg/dL0.70 - 1.30 mg/dLMetroHealth Main Campus Medical Center Laboratory - Hematology and Cell countson 05-45-7307Dzgnsbpxw (Bld) [#/Vol]K/uL 0.00 - 0.09 K/uLOSJoint Township District Memorial HospitalBasophils/100 WBC (Bld)0.2 %[facility] CenterDifferential cell count method Nom (Bld)Electronic DifferentialOSJoint Township District Memorial HospitalEosinophils (Bld) [#/Vol]0.05 10*3/uL0.00 - 0.48 K/uLMetroHealth Main Campus Medical CenterEosinophils/100 WBC (Bld)0.9 %[facility] Erythrocyte distribution width (RBC) [Ratio]14.5 %High10.9 - 14.3 %[facility] CenterHematocrit (Bld) [Volume fraction]29.7 %Low39.6 - 48.8 %[facility] CenterHemoglobin (Bld) [Mass/Vol]10.0 g/dLLow13.4 - 16.8 g/dLMetroHealth Main Campus Medical CenterImmature granulocytes (Bld) [#/Vol]0.10 10*3/uLHighNINF - 0.07 K/uLOSJoint Township District Memorial HospitalImmature granulocytes/100 WBC (Bld)1.8 %[facility] Medical CenterLymphocytes (Bld) [#/Vol]0.59 10*3/uLLow0.83 - 3.57 K/uLMetroHealth Main Campus Medical CenterLymphocytes/100 WBC (Bld)10.7 %[facility] CenterMCH (RBC) [Entitic mass]31.0 pg26.1 - 33.3 pgMetroHealth Main Campus Medical CenterMCHC (RBC) [Mass/Vol]33.7 g/dL31.9 - 36.5 g/dLMetroHealth Main Campus Medical CenterMCV (RBC) [Entitic vol]92.0 fL79.0 - 94.5 [facility] CenterMonocytes (Bld) [#/Vol]0.49 10*3/uL0.24 - 0.93 K/uLMetroHealth Main Campus Medical CenterMonocytes/100 WBC (Bld)8.9 %[facility] CenterNeutrophils (Bld) [#/Vol]4.28 10*3/uL1.57 - 6.19 K/uLMetroHealth Main Campus Medical CenterNucleated RBC/100 WBC (Bld) [Ratio]0.0 %German HospitalPlatelet mean volume (Bld) [Entitic vol]9.4 fL8.7 - 12.3 [facility] CenterPlatelets (Bld) [#/Vol]215 10*3/uL146 - 337 K/uLOSU Wexner Medical CenterRBC (Bld) [#/Vol]3.23 10*6/uLLowWexner Medical Centeregmented neutrophils/100 WBC (Bld)77.5 %[facility] CenterWBC (Bld) [#/Vol]5.52 10*3/uL3.73 - 10.10 K/uLOSU [facility] CompanyNo Panel Informationon [id number]/RH(D) TYPEPositiveOSMercy Health Lorain Hospitalpecimen Expiration 05/15/2025 23:59OS[facility] CompanyOSJoint Township District Memorial HospitaleGFR, CKD-EPI, Male87- PINFOMartins Ferry HospitalComment on above:Reported eGFR is based on the CKD-EPI 2020 equation using creatinine, age, and sex.Interpretation and review of laboratory resultsLos Robles Hospital & Medical CenterInterpretation and review of laboratory resultsAbnoUSC Verdugo Hills HospitalTYPE AND SCREENon [id number]/RH(D) TYPE PositiveCoshocton Regional Medical CenterComment on above: Performed By: #### XM #### [facility] (DEFAULT) [address] [address]Mllbgzvx Liadxohsgj69/18/2025 23:59[facility] Medical CenterComment on above:Performed By: #### XM #### [facility] (DEFAULT) [address] [address]MYN AND ELECTRONIC DIFFon 94-15-6074Uke Baso Auto<Normal 0.00-0.09W[facility]sworth-Rittman HospitalComment on above:Performed By: #### HH #### [facility] (DEFAULT) [address] 87115Bzonyjmxx/100 WBC (Bld)0.2 %NormalWadsworth-Rittman HospitalComment on above:Performed By: #### HH #### [facility] (DEFAULT) [address] [address]FABU STATUSElectronic DifferentialNormalOhio Doctors HospitalComment on above:Performed By: #### HH #### [facility] (DEFAULT) [address] [place] [address] 75286Ynqidvclttr (Bld) [#/Vol]0.07 10*3/uLNormal0.00-0.48W[facility]-Rittman HospitalComment on above:Performed By: #### HH #### OSJoint [facility] Hospital (DEFAULT) [address] [place] [address] 58992Jnuvmsoswmp/100 WBC (Bld)1.1 %[facility] Medical CenterComment on above:Performed By: #### HH #### [facility] (DEFAULT) [address] 21130Sxzgdaoqkk (Bld) [Volume fraction]33.7 %Low39.6-48.8[facility]Rittman HospitalComment on above:Performed By: #### HH #### [facility] (DEFAULT) [address] [place] [address] 28114Sqttkqkfwn (Bld) [Mass/Vol]11.1 g/dLLow13.4-16.8[facility]-Rittman HospitalComment on above:Result Comment: Warmed to 37C Performed By: #### HH #### [facility] (DEFAULT) [address] [address]Duwspnpc Grans %2.5 %[facility] Medical CenterComment on above:Performed By: #### HH #### [facility] (DEFAULT) [address] [place] [address] 44274Tcvcqecv Grans Absolute0.16 K/uLHigh<=0.07W[facility]-Rittman HospitalComment on above:Performed By: #### HH #### [facility] (DEFAULT) [address] [place] [address] 10450Foeuotdbcys (Bld) [#/Vol]0.75 10*3/uLLow0.83-3.57[facility] HospitalComment on above:Performed By: #### HH #### [facility] (DEFAULT) [address] [place] [address] 53321Nndbjaeqxle/100 WBC (Bld)11.5 %NormalWadsworth-Rittman HospitalComment on above:Performed By: #### HH #### [facility] (DEFAULT) [address] [place] [address] 41226NOE (RBC) [Entitic vol]89.9 zWWhoqkz67.0-94.5W[facility]-Rittman HospitalComment on above:Result Comment: Warmed to 37C Performed By: #### HH #### [facility] (DEFAULT) [address] [place] [address] 94753Pjdj Cell Hgb29.6 fgOvncfw29.1-33.3W[facility]-Rittman HospitalComment on above:Result Comment: Warmed to 37CPerformed By: #### HH #### [facility] (DEFAULT) [address] [place] [address] 12122Qmun Cell Hgb Conc32.9 g/lXKanavw18.9-36.5[facility]ittman HospitalComment on above:Result Comment: Warmed to 37C Performed By: #### HH #### [facility] (DEFAULT) [address] [place] [address] 72683Mxtsesdzo (Bld) [#/Vol]0.63 10*3/uLNormal0.24-0.93W[facility]itt[facility] HospitalComment on above:Performed By: #### HH #### [facility] (DEFAULT) [address] [place] [address] 62964Ffzrcnvpp/100 WBC (Bld)9.7 %NormalWadsworth-Rittman HospitalComment on above:Performed By: #### HH #### [facility] (DEFAULT) [address] [place] [address] 10981Zmngygnup RBC0.0 /100 WBCNormal<=0.2W[facility]-Rittman HospitalComment on above:Performed By: #### HH #### [facility] (DEFAULT) [address] [place] [address] 22506Wohqqhfy mean volume (Bld) [Entitic vol]9.9 fLNormal8.7-12.3 [facility] HospitalComment on above:Performed By: #### HH #### [facility] (DEFAULT) [address] [place] [address] 58116Vikaxhusz (Bld) [#/Vol]211 10*3/rCGwlsuy163-678JosxWadsworth-Rittman HospitalComment on above:Performed By: #### HH #### [facility] (DEFAULT) [address] [place] [address] 20171KUD (Bld) [#/Vol]3.75 10*6/uLLow4.38-5.83[facility]itt[facility] HospitalComment on above:Result Comment: Warmed to 37CPerformed By: #### HH #### [facility] (DEFAULT) [address] [place] [address] 36788XJI Imqkceyuobag65.5 %High10.9-14.3W[facility]-Rittman HospitalComment on above:Performed By: #### HH #### [facility] (DEFAULT) [address] [place] [address] 46340Guus + Bands Auto75.0 %NormalWadsworth-Rittman HospitalComment on above:Performed By: #### HH #### [facility] (DEFAULT) [address] [place] [address] 09024Onje + Bands,Absolute Auto4.88 K/uLNormal1.57-6.19[facility]itt[facility] HospitalComment on above:Performed By: #### HH #### [facility] (DEFAULT) [address] [place] [address] 05458AHI (Bld) [#/Vol]6.50 10*3/uLNormal3.73-10.10W[facility]-Rittman HospitalComment on above:Performed By: #### HH #### [facility] (DEFAULT) [address] [place] [address] 36138LMAY 6 (LYTES, BUN CREA)on 15-37-9197Edraq gap [Moles/Vol]14 mmol/LNormal7-17W[facility]-Rittman HospitalComment on above: Performed By: #### HH #### [facility] (DEFAULT) [address] [place] [address] 00444Bpihnxut [Moles/Vol]106 mmol/FIkindi27-219GmauWadsworth-Rittman HospitalComment on above:Performed By: #### HH #### [facility] (DEFAULT) [address] [place] [address] 59764VI3 [Moles/Vol]22 mmol/WSixcfw18-12IbshWadsworth-Rittman HospitalComment on above:Performed By: #### HH #### [facility] (DEFAULT) [address] [place] [address] 60426Qhpvcixvhy [Mass/Vol]0.89 mg/dLNormal0.70-1.30[facility] HospitalComment on above:Performed By: #### HH #### [facility] (DEFAULT) [address] [place] [address] 64127BND/1.73 sq M.predicted among non-blacks MDRD (S/P/Bld) [Vol rate/Area]83 mL/min/{1.73_m2}Normal>=60W[facility]-Rittman HospitalComment on above:Result Comment: Reported eGFR is based on the CKD-EPI 2020 equation using creatinine, age, and sex.Performed By: #### HH #### [facility] (DEFAULT) [address] [place] [address] 01381Xjrnlhpkk [Moles/Vol]3.6 mmol/LNormal3.5-5.0W[facility]-Ritt[facility] HospitalComment on above:Performed By: #### HH #### [facility] (DEFAULT) [address] [place] [address] 34980Oodwlz [Moles/Vol]138 mmol/XZldspq517-441AogcWadsworth-Rittman HospitalComment on above:Performed By: #### HH #### [facility] (DEFAULT) [address] [place] [address] 41722Rhha nitrogen [Mass/Vol]20 mg/dLNormal7-25W[facility]-Rittman HospitalComment on above:Performed By: #### HH #### [facility] (DEFAULT) [address] [place] [address] 99864Epuz nitrogen/Creatinine [Mass ratio]22 mg/mgNormalOhio Doctors HospitalComment on above:Performed By: #### HH #### [facility] (DEFAULT) [address] [place] [address] 78598VMYCXMB FUNCTION PANELon 30-58-8500Pkigqrw [Mass/Vol]3.3 g/dL Low3.5-5.0W[facility]-Rittman HospitalComment on above:Performed By: #### HH #### [facility] (DEFAULT) [address] [place] [address] 36049YCH [Catalytic activity/Vol]72 U/DHocina21-628AcujWadsworth-Rittman HospitalComment on above:Performed By: #### HH #### [facility] (DEFAULT) [address] [place] [address] 78037GGQ [Catalytic activity/Vol]99 U/YKdsx23-62KdbdWadsworth-Rittman HospitalComment on above:Performed By: #### HH #### [facility] (DEFAULT) [address] [place] [address] 63759FTT [Catalytic activity/Vol]34 U/HErwuwi59-16KupbWadsworth-Rittman HospitalComment on above:Performed By: #### HH #### [facility] (DEFAULT) [address] [place] [address] 94586Fwnvjrbso [Mass/Vol]0.6 mg/dLNormal<1.5W[facility]-Rittman HospitalComment on above:Performed By: #### HH #### [facility] (DEFAULT) [address] [place] [address] 79978Paqunfhxc.indirect [Mass/Vol]0.2 mg/dLNormal<0.3W[facility]-Rittman HospitalComment on above:Performed By: #### HH #### [facility] (DEFAULT) [address] [place], [place] [address]Yoaiqlb [Mass/Vol]6.3 g/dLLow6.4-8.3W[facility]itt[facility] HospitalComment on above:Performed By: #### HH #### [facility] (DEFAULT) [address] [place], [place] [address]Ifstlrobbl - Chemistry and Chemistry - challengeon 05-11-2025 Albumin [Mass/Vol]3.3 g/dLLow3.5 - 5.0 g/dLOSJoint Township District Memorial HospitalALP [Catalytic activity/Vol]72 U/L32 - 126 U/[facility] HospitalALT [Catalytic activity/Vol]99 U/LHigh10 - 52 U/[facility] HospitalAnion gap [Moles/Vol]14 mmol/L7 - 17 mmol/[facility] HospitalAST [Catalytic activity/Vol]34 U/L10 - 39 U/[facility] HospitalBilirubin [Mass/Vol]0.6 mg/dLNINF - 1.5 mg/dLOSJoint Township District Memorial HospitalBilirubin.direct [Mass/Vol]0.2 mg/dLNINF - 0.3 mg/dLOSU Regency Hospital CompanyChloride [Moles/Vol]106 mmol/L98 - 108 mmol/[facility] HospitalCO2 [Moles/Vol]22 mmol/L21 - 31 mmol/[facility] HospitalCreatinine [Mass/Vol]0.89 mg/dL0.70 - 1.30 mg/dLMetroHealth Main Campus Medical CenterPotassium [Moles/Vol]3.6 mmol/L3.5 - 5.0 mmol/[facility] HospitalProtein [Mass/Vol]6.3 g/dLLow6.4 - 8.3 g/dLWexner Medical Centerodium [Moles/Vol]138 mmol/L135 - 145 mmol/[facility] HospitalUrea nitrogen [Mass/Vol]20 mg/dL7 - 25 mg/dLOSU Regency Hospital CompanyUrea nitrogen/Creatinine [Mass ratio]22 mg/mgOSU [facility]ency Hospital CompanyLaboratory - Hematology and Cell countson [id number] (Bld) [#/Vol]K/uL0.00 - 0.09 K/uLOSJoint Township District Memorial HospitalBasophils/100 WBC (Bld)0.2 %OSJoint Township District Memorial HospitalDifferential cell count method Nom (Bld)Electronic DifferentialOSU Regency Hospital Company Eosinophils (Bld) [#/Vol]0.07 10*3/uL0.00 - 0.48 K/uLMetroHealth Main Campus Medical Center Eosinophils/100 WBC (Bld)1.1 %[facility] CenterErythrocyte distribution width (RBC) [Ratio]14.5 %High10.9 - 14.3 %[facility] CenterHematocrit (Bld) [Volume fraction]33.7 %Low39.6 - 48.8 %[facility] CenterHemoglobin (Bld) [Mass/Vol]11.1 g/dLLow13.4 - 16.8 g/dLMetroHealth Main Campus Medical CenterComment on above:Warmed to 37CImmature granulocytes (Bld) [#/Vol]0.16 10*3/uLHighNINF - 0.07 K/uLMetroHealth Main Campus Medical CenterImmature granulocytes/100 WBC (Bld)2.5 %[facility] CompanyLymphocytes (Bld) [#/Vol]0.75 10*3/uLLow0.83 - 3.57 K/uLMetroHealth Main Campus Medical CenterLymphocytes/100 WBC (Bld)11.5 %[facility] MCH (RBC) [Entitic mass]29.6 pg26.1 - 33.3 pgOSU Regency Hospital CompanyComment on above:Warmed to 37CMCHC (RBC) [Mass/Vol]32.9 g/dL31.9 - 36.5 g/dLOSU Regency Hospital CompanyComment on above:Warmed to 37CMCV (RBC) [Entitic vol]89.9 fL79.0 - 94.5 [facility] Medical CenterComment on above:Warmed to 37CMonocytes (Bld) [#/Vol]0.63 10*3/uL0.24 - 0.93 K/uLMetroHealth Main Campus Medical CenterMonocytes/100 WBC (Bld)9.7 %[facility] CenterNeutrophils (Bld) [#/Vol]4.88 10*3/uL1.57 - 6.19 K/uLMetroHealth Main Campus Medical CenterNucleated RBC/100 WBC (Bld) [Ratio]0.0 %NINF [facility] CenterPlatelet mean volume (Bld) [Entitic vol]9.9 fL8.7 - 12.3 [facility] Medical CenterPlatelets (Bld) [#/Vol]211 10*3/uL146 - 337 K/uL [facility] CenterRBC (Bld) [#/Vol]3.75 10*6/uLLowMetroHealth Main Campus Medical CenterComment on above:Warmed to 37CSegmented neutrophils/100 WBC (Bld)75.0 %[facility] CenterWBC (Bld) [#/Vol]6.50 10*3/uL3.73 - 10.10 K/uLMetroHealth Main Campus Medical CenterNo Panel Informationon 26-18-5618Stnersqruutguf and review of laboratory resultsAbnoUSC Verdugo Hills Hospital eGFR, CKD-EPI, Male83- [facility] HospitalComment on above:Reported eGFR is based on the CKD-EPI 2020 equation using creatinine, age, and sex. Interpretation and review of laboratory resultsAbnoVencor HospitalC REACTIVE PROTEINon 10-24-2354WAJ [Mass/Vol]37.48 mg/L High<10.00W[facility]-Rittman HospitalComment on above:Performed By: #### HH #### [facility] (DEFAULT) [address] [place] [address] 70421TJZIIWRJXPvp 92-06-7166Hxptyqgrna [Mass/Vol]0.85 mg/dLNormal 0.70-1.30[facility]Rittman HospitalComment on above:Performed By: #### HH #### [facility] (DEFAULT) [address] [place] [address] 99882OQW/1.73 sq M.predicted among non-blacks MDRD (S/P/Bld) [Vol rate/Area]85 mL/min/{1.73_m2}Normal>=60W[facility]-Rittman HospitalComment on above:Result Comment: Reported eGFR is based on the CKD-EPI 2020 equation using creatinine, age, and sex.Performed By: #### HH #### [facility] (DEFAULT) [address] [place] [address] 15158SVRHNXLXNP & HEMATOCRITon 42-64-2435Rehnrfodin (Bld) [Volume fraction]34.5 %Low39.6-48.8[facility]Ritt[facility] HospitalComment on above:Performed By: #### HH #### [facility] (DEFAULT) [address] [place] [address] 94441Dscopgwnyz (Bld) [Mass/Vol]11.0 g/dLLow13.4-16.8[facility]itt[facility] HospitalComment on above:Result Comment: Warmed to 37C Performed By: #### HH #### [facility] (DEFAULT) [address] [place] [address] 73860MUCZD RESPIRATORY CULTURE, BACTERIALon [id number] identified Cx Nom (Unsp spec)[facility] Comment on above:Result Comment: Growth 4471 Moderate Growth Common oropharyngeal microbesPerformed By: #### RES #### [facility] (DEFAULT) [address] [place] [address] 73083Wpuiqarcmis observation Gram stain Nom (Unsp spec)[facility] CenterComment on above:Result Comment: Neutrophils, Rare Contaminating bacteria and epithelials, LIGHT Specimen is of very poor quality and results may be compromised suggest recollection if clinically indicatedPerformed By: #### RES #### [facility] (DEFAULT) [address] [place] [address] 70548Iydjcqtiwn - Chemistry and Chemistry - challengeon 05-10-2025 Creatinine [Mass/Vol]0.85 mg/dL0.70 - 1.30 mg/dLMetroHealth Main Campus Medical CenterCRP High sensitivity method [Mass/Vol]37.48 mg/LHighNINF - 10.00 mg/LOSU [facility] CompanyLaboratory - Drug toxicologyon 43-71-0584Vevlrzcxwq trough [Mass/Vol]13.9 ug/mLOSJoint Township District Memorial HospitalLaboratory - Hematology and Cell countson 00-16-1716Urxzumzzka (Bld) [Volume fraction]34.5 %Low39.6 - 48.8 %[facility] CompanyHemoglobin (Bld) [Mass/Vol]11.0 g/dLLow13.4 - 16.8 g/dLMetroHealth Main Campus Medical CenterComment on above:Warmed to 37CESR (Bld) [Velocity]120 mm/h HighNINFMetroHealth Main Campus Medical CenterNo Panel Informationon 10-27-0200Plsjhficfnyzty and review of laboratory resultsAbnoUSC Verdugo Hills HospitalInterpretation and review of laboratory resultsNoUSC Verdugo Hills HospitalInterpretation and review of laboratory resultsAbLoma Linda University Children's HospitaleGFR, CKD-EPI, Male85- [facility] HospitalComment on above:Reported eGFR is based on the CKD-EPI 2020 equation using creatinine, age, and sex.Interpretation and review of laboratory resultsAbOhioHealth Grady Memorial HospitalInterpretation and review of laboratory resultsNoWestside Hospital– Los AngelesEDIMENTATION RATE, AUTOMATEDon 68-38-7977UDL Plfbqffbzw603 mm/hrHigh<30 [facility]Rittman HospitalComment on above:Performed By: #### HH #### [facility] (DEFAULT) [address] [place], [place] [address]BQVGFGPILL LEVEL, TROUGH (PRE DRUG LEVEL)on 05-10-2025 Vancomycin, Yjduye84.9 mcg/mLNormalTherapeutic Range: 10.0-20.0 mcg/mLWadsworth-Rittman HospitalComment on above:Order Comment: Please draw level at specified interval PRIOR to next dose.Performed By: #### HEP3B #### [facility] (DEFAULT) [address] [place] [address] 99645LILTJKJwa 76-67-9630Wyvcenu [Mass/Vol]9.1 mg/dLNormal8.6-10.5 [facility]-Rittman HospitalComment on above:Performed By: #### MGO, HFP, CA, CHM7, IPB #### [facility] (DEFAULT) [address] [place] [address] 19737DKW AND ELECTRONIC DIFFon 16-40-8116Ldm Baso Auto<Normal 0.00-0.09W[facility]-Rittman HospitalComment on above:Performed By: #### HH #### [facility] (DEFAULT) [address] [place] [address] 78233Abj Eos Auto<Normal0.00-0.48W[facility]-Rittman HospitalComment on above:Performed By: #### HH #### [facility] (DEFAULT) [address] [place] [address] 92153Hsykuvczn/100 WBC (Bld)0.2 %NormalWadsworth-Rittman HospitalComment on above:Performed By: #### HH #### [facility] (DEFAULT) [address] [place] [address] 65179PZRT STATUSElectronic DifferentialNormalOhiOhioHealth Van Wert HospitalComment on above:Performed By: #### HH #### [facility] (DEFAULT) [address] [place] [address] 60968Kbradhdpphj/100 WBC (Bld)0.2 %[facility] Medical CenterComment on above:Performed By: #### HH #### [facility] (DEFAULT) [address] [place] [address] 49569Bvedmyjrtz (Bld) [Volume fraction]33.0 %Low39.6-48.8[facility]-Rittman HospitalComment on above:Performed By: #### HH #### [facility] (DEFAULT) [address] [place] [address] 36899Flypvjijqp (Bld) [Mass/Vol]10.9 g/dLLow13.4-16.8[facility]-Rittman HospitalComment on above:Performed By: #### HH #### [facility] (DEFAULT) [address] [place] [address] 95953Drarmtfq Grans %1.4 %[facility] Medical CenterComment on above:Performed By: #### HH #### [facility] (DEFAULT) [address] [place] [address] 16559Uhcthqix Grans Absolute0.09 K/uLHigh<=0.07[facility]-Rittman HospitalComment on above:Performed By: #### HH #### [facility] (DEFAULT) [address] [place] [address] 12162Othfqifrlom (Bld) [#/Vol]0.65 10*3/uLLow0.83-3.57W[facility]-Rittman HospitalComment on above:Performed By: #### HH #### [facility] (DEFAULT) [address] [place] [address] 76258Zuqauhcbdmt/100 WBC (Bld)10.1 %[facility] Medical CenterComment on above:Performed By: #### HH #### [facility] (DEFAULT) [address] [place] [address] 91366BKG (RBC) [Entitic vol]91.9 cOEppmdl79.0-94.5W[facility]-Rittman HospitalComment on above:Performed By: #### HH #### [facility] (DEFAULT) [address] [place] [address] 97611Zxwb Cell Hgb30.4 ayKakqrs26.1-33.3W[facility]-Rittman HospitalComment on above:Performed By: #### HH #### [facility] (DEFAULT) [address] [place] [address] 36487Ulpl Cell Hgb Conc33.0 g/uPBoxtse17.9-36.5[facility]-Rittman HospitalComment on above:Performed By: #### HH #### [facility] (DEFAULT) [address] [place] [address] 60024Wxtzjqbut (Bld) [#/Vol]0.71 10*3/uLNormal0.24-0.93W[facility]-Rittman HospitalComment on above:Performed By: #### HH #### [facility] (DEFAULT) [address] [place] [address] 41828Tjyrdmpnq/100 WBC (Bld)11.1 %NormalWadsworth-Rittman HospitalComment on above:Performed By: #### HH #### [facility] (DEFAULT) [address] [place] [address] 66740Fnhkpfbnb RBC0.0 /100 WBCNormal<=0.2W[facility]-Rittman HospitalComment on above:Performed By: #### HH #### [facility] (DEFAULT) [address] [place] [address] 11809Ovwuoabd mean volume (Bld) [Entitic vol]9.2 fLNormal8.7-12.3 [facility]ittman HospitalComment on above:Performed By: #### HH #### [facility] (DEFAULT) [address] [place] [address] 45703Zdozsyltb (Bld) [#/Vol]232 10*3/vUImmbph024-990OwbzWadsworth-Rittman HospitalComment on above:Performed By: #### HH #### [facility] (DEFAULT) [address] [place] [address] 06246LYW (Bld) [#/Vol]3.59 10*6/uLLow4.38-5.83W[facility]-Rittman HospitalComment on above:Performed By: #### HH #### [facility] (DEFAULT) [address] [place] [address] 66975HXQ Fzhxbuomdygw62.6 %High10.9-14.3W[facility]-Rittman HospitalComment on above:Performed By: #### HH #### [facility] (DEFAULT) [address] [place] [address] 94781Isah + Bands Auto77.0 %NormalWadsworth-Rittman HospitalComment on above:Performed By: #### HH #### [facility] (DEFAULT) [address] [place] [address] 65409Jmxb + Bands,Absolute Auto4.94 K/uLNormal1.57-6.19[facility]Rittman HospitalComment on above:Performed By: #### HH #### [facility] (DEFAULT) [address] [place] [address] 61402JCI (Bld) [#/Vol]6.41 10*3/uLNormal3.73-10.10W[facility]-Rittman HospitalComment on above:Performed By: #### HH #### [facility] (DEFAULT) [address] [place] [address] 14682TLRV 7 (LYTES,BUN,CREA,GLUC)on 98-97-7053Yxbsu gap [Moles/Vol] 14 mmol/LNormal7-17W[facility]-Rittman HospitalComment on above: Performed By: #### MGO, HFP, CA, CHM7, IPB #### [facility] (DEFAULT) [address] [place] [address] 84205Ngyibhrl [Moles/Vol]107 mmol/UPesdlv81-034JmxfWadsworth-Rittman HospitalComment on above:Performed By: #### MGO, HFP, CA, CHM7, IPB #### [facility] (DEFAULT) [address] [place] [address] 73163YM3 [Moles/Vol]22 mmol/MQhscna18-54VyrcWadsworth-Rittman HospitalComment on above:Performed By: #### MGO, HFP, CA, CHM7, IPB #### [facility] (DEFAULT) [address] [place] [address] 64027Dqygwykmpq [Mass/Vol]0.92 mg/dLNormal0.70-1.30W[facility]-Rittman HospitalComment on above:Performed By: #### TRU REDMOND, CA, CHM7, IPB #### [facility] (DEFAULT) [address] [place] [address] 57133QUN/1.73 sq M.predicted among non-blacks MDRD (S/P/Bld) [Vol rate/Area]81 mL/min/{1.73_m2}Normal>=60W[facility]-Rittman HospitalComment on above:Result Comment: Reported eGFR is based on the CKD-EPI 2020 equation using creatinine, age, and sex.Performed By: #### TRU REDMOND, CA, CHM7, IPB #### [facility] (DEFAULT) [address] [place] [address] 55101Enxghdp [Mass/Vol]100 mg/dLNormalNonfastin-179 mg/dL; Fastin-99W[facility]-Rittman HospitalComment on above: Performed By: #### TRU REDMOND, NALDO, CHM7, IPB #### [facility] (DEFAULT) [address] [place] [address] 78378Eyzhyptfps [Osmolality]296 mosm/teMdtapn584-969GzebWadsworth-Rittman HospitalComment on above:Performed By: #### TRU REDMOND, CA, CHM7, IPB #### [facility] (DEFAULT) [address] [place] [address] 37840Pucqmianj [Moles/Vol]4.2 mmol/LNormal3.5-5.0W[facility]-Rittman HospitalComment on above:Performed By: #### TRU REDMOND, CA, CHM7, IPB #### [facility] (DEFAULT) [address] [place] [address] 51431Uotngp [Moles/Vol]139 mmol/JYawdji587-120Pzxt [facility] University [facility]ner Medical CenterComment on above:Performed By: #### MGO, HFP, CA, CHM7, IPB #### [facility] (DEFAULT) [address] [place] [address] 44283Asrc nitrogen [Mass/Vol]25 mg/dLNormal7-25W[facility]-Rittman HospitalComment on above:Performed By: #### MGO, HFP, CA, CHM7, IPB #### [facility] (DEFAULT) [address] [place] [address] 07054Dbie nitrogen/Creatinine [Mass ratio]27 mg/mgNormalOhiOhioHealth Van Wert HospitalComment on above:Performed By: #### MGO, HFP, CA, CHM7, IPB #### [facility] (DEFAULT) [address] [place] [address] 95250Peouhvr hepatitis differentiation between hepatitis B and C virus panelOrdered By: Cheli Ruiz on 94-76-1186IZX core IgG+IgM Ql (S) NegativeNegativeOSJoint Township District Memorial HospitalHBV surface Ab IA Ql (S)Negative NegativeOSJoint Township District Memorial HospitalHBV surface Ag Ql (S)NegativeNegativeOSJoint Township District Memorial HospitalHCV Ab Ql (S)NegativeNegativeOSJoint Township District Memorial Hospital Interpretation and review of laboratory resultsNormVencor HospitalHEPATIC FUNCTION PANELon 35-09-6187Owengci [Mass/Vol] 3.5 g/dLNormal3.5-5.0W[facility]-Rittman HospitalComment on above:Performed By: #### MGO, HFP, CA, CHM7, IPB #### [facility] (DEFAULT) [address] [place] [address] 08693LRN [Catalytic activity/Vol]79 U/ECvvwwo50-709NnblWadsworth-Rittman HospitalComment on above:Performed By: #### MGO, HFP, CA, CHM7, IPB #### [facility] (DEFAULT) [address] [place] [address] 25616MNZ [Catalytic activity/Vol]180 U/VGsaz61-16NqvzWadsworth-Rittman HospitalComment on above:Performed By: #### MGO, HFP, CA, CHM7, IPB #### [facility] (DEFAULT) [address] [place] [address] 98324GIX [Catalytic activity/Vol]125 U/WIqqf65-92CktyWadsworth-Rittman HospitalComment on above:Performed By: #### MGO, HFP, CA, CHM7, IPB #### [facility] (DEFAULT) [address] [place] [address] 44041Hkfytrsuq [Mass/Vol]0.7 mg/dLNormal<1.5W[facility]-Rittman HospitalComment on above:Performed By: #### MGO, HFP, CA, CHM7, IPB #### [facility] (DEFAULT) [address] [place] [address] 50037Lvzkekqgo.indirect [Mass/Vol]0.1 mg/dLNormal<0.3W[facility]-Rittman HospitalComment on above:Result Comment: Specimen hemolyzed. Direct bilirubin results may be falsely decreased. Interpret within the clinical context.Performed By: #### MGO, HFP, CA, CHM7, IPB #### [facility] (DEFAULT) [address] [place] [address] 31551Ominuun [Mass/Vol]6.6 g/dLNormal6.4-8.3W[facility]Ritt[facility] HospitalComment on above:Performed By: #### MGO, HFP, CA, CHM7, IPB #### [facility] (DEFAULT) [address] [place] [address] 94686OYPSSFDWT BATTERY, CHRONICon 74-65-1266Tww B Core Ab,Total (IgG+IgM)NegativeNormalNegativeWadsworth-Rittman Hospital Comment on above:Performed By: #### HEP3B #### [facility] (DEFAULT) [address] [place] [address] 49968Dei B Surface AbNegativeNormalNegativeOhio State University Wexner Medical CenterComment on above:Performed By: #### HEP3B #### [facility] (DEFAULT) [address] [place], [place] [address]Rcjlcippt B Surface AgNegativeNormneNegMetroHealth Parma Medical CenterComment on above:Performed By: #### HEP3B #### [facility] (DEFAULT) [address] [place], [place] [address]Eyruyjygt C AntibodyNegativeNormalNegMetroHealth Parma Medical CenterComment on above:Performed By: #### HEP3B #### [facility] (DEFAULT) [address] [place], [place] [address]Vhfjylrmiv - Chemistry and Chemistry - challengeon 05-09-2025 Albumin [Mass/Vol]3.5 g/dL3.5 - 5.0 g/dLOSU [facility]ency Hospital CompanyALP [Catalytic activity/Vol]79 U/L32 - 126 U/[facility] HospitalALT [Catalytic activity/Vol]180 U/LHigh10 - 52 U/[facility] HospitalAnion gap [Moles/Vol]14 mmol/L7 - 17 mmol/[facility] HospitalAST [Catalytic activity/Vol]125 U/LHigh10 - 39 U/[facility] HospitalBilirubin [Mass/Vol] 0.7 mg/dLNINF - 1.5 mg/dLOSJoint Township District Memorial HospitalBilirubin.direct [Mass/Vol]0.1 mg/dLNINF - 0.3 mg/dLOSJoint Township District Memorial HospitalComment on above:Specimen hemolyzed. Direct bilirubin results may be falsely decreased. Interpret within the clinical context.Chloride [Moles/Vol]107 mmol/L98 - 108 mmol/[facility] HospitalCO2 [Moles/Vol]22 mmol/L21 - 31 mmol/[facility] Creatinine [Mass/Vol]0.92 mg/dL0.70 - 1.30 mg/dLMetroHealth Main Campus Medical CenterGlucose [Mass/Vol]100 mg/dL70 - 179 mg/dLMetroHealth Main Campus Medical CenterOsmolality Calc [Osmolality]296[facility] CompanyPhosphate [Mass/Vol]3.2 mg/dL2.2 - 4.6 mg/dLMetroHealth Main Campus Medical CenterPotassium [Moles/Vol]4.2 mmol/L3.5 - 5.0 mmol/LOSU [facility] Hospital CompanyProtein [Mass/Vol]6.6 g/dL6.4 - 8.3 g/dLWexner Medical Centerodium [Moles/Vol]139 mmol/L135 - 145 mmol/[facility] HospitalUrea nitrogen [Mass/Vol]25 mg/dL7 - 25 mg/dLMetroHealth Main Campus Medical CenterUrea nitrogen/Creatinine [Mass ratio]27 mg/mgMetroHealth Main Campus Medical CenterCalcium [Mass/Vol]9.1 mg/dL8.6 - 10.5 mg/dLMetroHealth Main Campus Medical CenterMagnesium [Mass/Vol] 2.0 mg/dL1.6 - 2.6 mg/dLMetroHealth Main Campus Medical CenterLaboratory - CoagulationOrdered By: Amy Watson on 29-37-7305yZHS Coag (PPP) [Time]23.6 sLowMetroHealth Main Campus Medical CenterComment on above:Specimen integrity checked.INR Coag (Bld) [Relative time]1.1 {INR}0.9 - 1.1[facility] Medical CenterPT Coag (PPP) [Time] 14.4 [facility] HospitalLaboratory - Hematology and Cell countson 83-92-8164Hmvevsxrk (Bld) [#/Vol]K/uL0.00 - 0.09 K/uLMetroHealth Main Campus Medical Center Basophils/100 WBC (Bld)0.2 %[facility] CenterDifferential cell count method Nom (Bld)Electronic DifferentialMetroHealth Main Campus Medical CenterEosinophils (Bld) [#/Vol]K/uL0.00 - 0.48 K/uLMetroHealth Main Campus Medical CenterEosinophils/100 WBC (Bld)0.2 %[facility] Medical CenterErythrocyte distribution width (RBC) [Ratio] 14.6 %High10.9 - 14.3 %[facility] Medical CenterHematocrit (Bld) [Volume fraction]33.0 %Low39.6 - 48.8 %[facility] Medical CenterHemoglobin (Bld) [Mass/Vol]10.9 g/dLLow13.4 - 16.8 g/dLMetroHealth Main Campus Medical CenterImmature granulocytes (Bld) [#/Vol]0.09 10*3/uLHighNINF - 0.07 K/[facility] HospitalImmature granulocytes/100 WBC (Bld)1.4 %[facility] Lymphocytes (Bld) [#/Vol]0.65 10*3/uLLow0.83 - 3.57 K/[facility] HospitalLymphocytes/100 WBC (Bld)10.1 %[facility] HospitalH (RBC) [Entitic mass]30.4 pg26.1 - 33.3 pgMetroHealth Main Campus Medical CenterMCHC (RBC) [Mass/Vol]33.0 g/dL31.9 - 36.5 g/dLMetroHealth Main Campus Medical CenterMCV (RBC) [Entitic vol]91.9 fL79.0 - 94.5 [facility] CenterMonocytes (Bld) [#/Vol]0.71 10*3/uL0.24 - 0.93 K/[facility] HospitalMonocytes/100 WBC (Bld)11.1 %[facility] Medical CenterNeutrophils (Bld) [#/Vol]4.94 10*3/uL1.57 - 6.19 K/[facility] HospitalNucleated RBC/100 WBC (Bld) [Ratio]0.0 %[facility] Platelet mean volume (Bld) [Entitic vol]9.2 fL8.7 - 12.3 [facility] CenterPlatelets (Bld) [#/Vol]232 10*3/uL146 - 337 KTwin City Hospital RBC (Bld) [#/Vol]3.59 10*6/uLLowU Memorial Hospitalegmented neutrophils/100 WBC (Bld)77.0 %[facility] CenterWBC (Bld) [#/Vol]6.41 10*3/uL3.73 - 10.10 K/uLU [facility] CompanyMAGNESIUMon 27-62-7794Whhpqymye [Mass/Vol]2.0 mg/dLNormal1.6-2.6[facility] Comment on above:Performed By: #### MGO, HFP, CA, CHM7, IPB #### [facility] (DEFAULT) [address] [place] [address] 47964Qx Panel InformationOrdered By: Amy Watson on 05-09-2025 Interpretation and review of laboratory resultsAbSan Luis Obispo General HospitalNo Panel Informationon 73-01-1360dLTL, CKD-EPI, Male81- PINCleveland Clinic Mentor HospitalComment on above:Reported eGFR is based on the CKD-EPI 2020 equation using creatinine, age, and sex.Interpretation and review of laboratory resultsNewark HospitalInterpretation and review of laboratory resultsAbLoma Linda University Children's Hospital Interpretation and review of laboratory resultsNoVencor HospitalInterpretation and review of laboratory resultsAbnormal USC Kenneth Norris Jr. Cancer HospitalPHOSPHATE, INORGANICon 64-08-5918Jfvmhaipizz6.2 mg/dLNormal2.2-4.6W[facility]-Rittman HospitalComment on above:Performed By: #### HH #### [facility] (DEFAULT) [address] [place] [address] 76643RG,INR,PTTon 20-92-5972lUUP Coag (Bld) [Time]23.6 sLow 24.0-34.3W[facility]-Rittman HospitalComment on above:Result Comment: Specimen integrity checked.Performed By: #### HH #### [facility] (DEFAULT) [address] [place] [address] 31541LFH Coag (PPP) [Relative time]1.1 {INR}Normal0.9-1.1W[facility]-Rittman HospitalComment on above:Performed By: #### HH #### [facility] (DEFAULT) [address] [place], [place] [address]IN Coag (PPP) [Time]14.4 sHigh11.9-14.2W[facility]-Rittman HospitalComment on above:Performed By: #### HH #### [facility] (DEFAULT) [address] [place], [place] [address]SP ABDOMEN RUQ/LIVER/GBon 75-38-7097HX ABDOMEN RUQ/LIVER/GB EXAM: US ABDOMEN RUQ/LIVER/GB, 05/09/2025 [...] 1. Hepatic steatosis. 2. Gallstones without cholecystitis. NormalWadsworth-Rittman HospitalUS Abdomen RUQon 55-12-1185COPZTOAURH: 1. Hepatic steatosis. 2. Gallstones without cholecystitis. [...] is no ascites in the visualized abdomen. Kayla Reeves MD - 05/09/2025 EXAM: US ABDOMEN RUQ/LIVER/GB, [...] steatosis. 2. Gallstones without cholecystitis. [facility] CompanyRadiology Study observation (narrative)[facility] CompanyUS Abdomen RUQOrdered By: Kayla Escobedo on 05-85-8687JRT [facility] Work Phone: basic Metabolic Panelon 56-73-6610Pvkyx gap [Moles/Vol]10.8 mmol/LNormal6.0-15.0The [facility] Physician GroupComment on above:Performed By: #### AERC, GS #### [facility] [address] [place] [address] USACalcium [Mass/Vol]9.0 mg/dLNormal8.6-10.3The [facility] Physician GroupComment on above:Performed By: #### AERC, GS #### [facility] [address] [place] [id number] USAChloride [Moles/Vol]106 mmol/QJnqxrx39-157Uno [facility] Physician GroupComment on above:Performed By: #### AERC, GS #### [facility] [address] [place] [address] USACO2 [Moles/Vol]23.9 mmol/BJltwmf86.0-31.0The [facility] Physician [facility] WesleyComment on above:Performed By: #### AERC, GS #### [facility] [address] [place] [phone] USACreatinine [Mass/Vol]1.01 mg/dLNormal0.70-1.30The [facility] Physician GroupComment on above:Performed By: #### AERC, GS #### [facility] [address] [place] [phone] USACreatinine Clr Calc Jtqpkatv72.59NormalThe [facility] Physician GroupComment on above:Result Comment: PERFORMED BY: [place] [address] PATHOLOGIST ELECTRICAL SYSTEMS DESIGN ENGINEER MAXIM HERNANDEZ M.D.Performed By: #### AERC, GS #### [place] [phone] USAGFR/1.73 sq M.predicted MDRD (S/P/Bld) [Vol rate/Area] mL/min/{1.73_m2}NormalThe [facility] Physician GroupComment on above:Performed By: #### ERMA, GS #### [place] [address] USAGlucose [Mass/Vol]135 mg/lFAauu72-747Rvn [facility] Physician GroupComment on above:Result Comment: Random Glucose Reference Range is dependent on time and content of last meal. Glucose of more than 200 mg/dL in a nonstressed, ambulatory subject supports the diagnosis of Diabetes Mellitus. ADA recommended reference rangePerformed By: #### ERMA, GS #### [place] [address] USAPotassium [Moles/Vol]3.7 mmol/LNormal3.5-5.1The [facility] Physician GroupComment on above:Performed By: #### ERMA, GS #### [place] [address] USASodium [Moles/Vol]137 mmol/DYxoydx336-953Wyf [facility] Physician GroupComment on above:Performed By: #### ERMA, GS #### [place] [address] USAUrea nitrogen [Mass/Vol]27 mg/dLHigh7-25The [facility] Physician GroupComment on above:Performed By: #### ERMA, GS #### [place] [id number] USALon 05-08-2025 Specimen: [id number] Received: 05/08/25 Status: ALTON Alvarez Num: [id number] Spec Type: Impression Subm Dr: Ben Reddy DO Tissues: PATHPER Procedures: PATHREVIEW Age/ Patient Sex Location Account Attending Physician Tristin Powell /[facility] [id number] Ben Reddy DO SPEC NUM: [id number] RECD: 05/08/25 STATUS: ALTON ANTONIO NUM: [id number] ANNA: 05/08/25- SUBM DR: Ben Reddy DO ENTERED: 05/08/[address] [facility] [address]: SPEC TYPE: Impression DEPT: IN ORDERED: PATHREVIEW ORDERED: PATHREVIEW Pathologist Review PERIPHERAL SMEAR REVIEW Review of the smear confirms the CBC results RBCs: Mildly reduced in number, moderate anisopoikilocytosis, rare schistocytes noted, nucleated cells noted WBCs: Reduced in number with absolute lymphopenia Platelets: Normal in number and morphology CPT: 98079 Specimen: [id number] Received: 05/08/25 Status: ALTON [place] Num: [id number] Spec Type: Impression Subm Dr: Ben Reddy DO Tissues: PATHPER Procedures: PATHREVIEW Patient: Tristin Powell [id number] (Continued) Signed (signature on file) Daniel Quezada Jr., MD 05/08/[address] [place] [address] Physician GroupPartial Thromboplastin Timeon 49-22-3140pUPV Thelma (Beni) [Time]19.8 sLow25.1-36.5The [facility] Group Comment on above:Result Comment: A hematocrit value greater than 55% may lead to inaccurate results in coagulation testing. Patients having hematocrit values >55% require a special collection tube for coagulation studies. Please contact the laboratory at [phone] for redraw instructions. PERFORMED BY: [address] [address] PATHOLOGIST ELECTRICAL SYSTEMS DESIGN ENGINEER MAXIM HERNANDEZ M.D.Performed By: #### PTT, PT ####[address] [address] USAPathologist Slide Reviewon 05-08-2025 Pathologist Slide ReviewOrdered Path ReviewNoCommunity Health Physician [facility] Comment on above:Result Comment: PERFORMED BY: [place] [id number] PATHOLOGIST ELECTRICAL SYSTEMS DESIGN ENGINEER MAXIM HERNANDEZ M.D.Performed By: #### AERC, GS #### [place] [phone] USAProthrombin Time INRon 01-45-5980YSS Coag (PPP) [Relative time]1.1 {INR}NormalThe [facility] Physician GroupComment on above:Result Comment: [...] 3 - 4.5Performed By: #### PTT, PT ####[address] [address] USAPT Coag (PPP) [Time]13.0 sHigh9.0-12.9The [facility] Physician GroupComment on above:Result Comment: A hematocrit value greater than 55% may lead to inaccurate results in coagulation testing. Patients having hematocrit values >55% require a special collection tube for coagulation studies. Please contact the laboratory at [phone] for redraw instructions.Performed By: #### PTT, PT ####[place] [address] [place] [address] USAScan and CBCon 92-94-5160Qdpylfeqtvcs Ql (Bld) SlightNoCommunity Health Physician GroupComment on above:Performed By: #### AERC, GS #### [facility] [address] [place] [address] USABasophils (Bld) [#/Vol]0.0 10*3/uLNormal0.0-0.2The [facility] Physician GroupComment on above:Performed By: #### AERC, GS #### [facility] [address] [place] [address] USABasophils/100 WBC (Bld)0.2 %Normal.The [facility] Physician GroupComment on above:Performed By: #### AERC, GS #### [place] [address] USACrenated RBCModerateNormTriHealth McCullough-Hyde Memorial Hospitale [facility] Comment on above:Performed By: #### AERC, GS #### [facility] [address] [place] [address] USAEosinophils (Bld) [#/Vol]0.1 10*3/uLNormal0.0-0.45The [facility] Physician GroupComment on above:Performed By: #### AERC, GS #### [facility] [address] [place] [address] USAEosinophils/100 WBC (Bld)1.9 %Normal.The [facility] Physician GroupComment on above:Performed By: #### AERC, GS #### [place] [address] USAErythrocyte distribution width (RBC) [Ratio]15.5 %High 12.0-14.8The [facility] Physician GroupComment on above:Performed By: #### AERC, GS #### [place] [address] USAHematocrit (Bld) [Volume fraction]30.1 %Low38.8-50.0The [facility] Physician GroupComment on above:Performed By: #### AERC, GS #### [facility] [address] [place] [address] USAHemoglobin (Bld) [Mass/Vol]10.9 g/dLLow13.0-17.0The [facility] Physician GroupComment on above:Performed By: #### AERC, GS #### [facility] [address] [place] [address] USALymphocytes (Bld) [#/Vol]0.4 10*3/uLLow1.00-4.8The [facility] Physician GroupComment on above:Performed By: #### AERC, GS #### [facility] [address] [place] [address] USALymphocytes/100 WBC (Bld)11.1 %Normal.The [facility] Physician GroupComment on above:Performed By: #### AERC, GS #### [place] [address] USAMCH (RBC) [Entitic mass]33.9 ntGqmhjz43.5-35.2The [facility] Physician GroupComment on above:Performed By: #### AERC, GS #### [place] [address] USAMCV (RBC) [Entitic vol]94.1 eQYrttlx17.5-101The [facility] Physician GroupComment on above:Performed By: #### AERC, GS #### [place] [address] USAMean Corpuscular HGB Conc36.0 g/cJHdrb05.5-35.6The [facility] Physician GroupComment on above:Performed By: #### AERC, GS #### [facility] [address] [place] [address] USAMonocytes (Bld) [#/Vol]0.5 10*3/uLNormal0.0-0.8The [facility] Physician GroupComment on above:Performed By: #### AERC, GS #### [place] [address] USAMonocytes/100 WBC (Bld)14.5 %Normal.The [facility] Physician GroupComment on above:Performed By: #### AERC, GS #### [place] [address] USANeutrophils (Bld) [#/Vol]2.7 10*3/uLNormal1.8-7.7The [facility] Physician GroupComment on above:Performed By: #### AERC, GS #### [place] [address] USANeutrophils/100 WBC (Bld)72.3 %Normal.The [facility] Physician GroupComment on above:Performed By: #### AERC, GS #### [place] [address] USANRBC%0.9 /100{WBC}High0-0.5[facility] Comment on above:Performed By: #### AERC, GS #### [place] [address] USAOvalocytesModerateNormCommunity Hospital Physician [facility] Comment on above:Performed By: #### AERC, GS #### [place] [address] USAPlatelet EstimateNormalNormalNormCommunity Hospital Physician GroupComment on above:Performed By: #### AERC, GS #### [place] [address] USAPlatelet mean volume (Bld) [Entitic vol]7.2 fLNormal 6.6-10.1The [facility] Physician GroupComment on above:Performed By: #### AERC, GS #### [place] [address] USAPlatelet MorphologyNormalNormalNormCommunity Hospital Physician GroupComment on above:Result Comment: PERFORMED BY: [place] [address] PATHOLOGIST ELECTRICAL SYSTEMS DESIGN ENGINEER MAXIM HERNANDEZ M.D.Performed By: #### AERC, GS #### [place] [address] USAPlatelets (Bld) [#/Vol]231 10*3/rHYkibcw493-287Hwy [facility] Physician GroupComment on above:Performed By: #### AERC, GS #### [place] [address] USAPoikilocytosisModerateNormalThe [facility] Comment on above:Performed By: #### AERC, GS #### [place] [address] USARBC (Bld) [#/Vol]3.20 10*6/uLLow3.90-5.60The [facility] Physician GroupComment on above:Performed By: #### AERC, GS #### [place] [address] USAWBC (Bld) [#/Vol]3.7 10*3/uLLow4.1-10.5The [facility] Physician GroupComment on above:Performed By: #### AERC, GS #### [place] [address] USAWhite Blood Count3.7 [CFU]/mLLow4.1-10.5The [facility] Physician GroupComment on above:Performed By: #### AERC, GS #### [place] [address] USABasic Metabolic Panelon 47-56-7847Vyqhj gap [Moles/Vol] 13.0 mmol/LNormal6.0-15.0The [facility] Physician GroupComment on above:Performed By: #### BMP, CBC #### [place] [address] USACalcium [Mass/Vol]8.7 mg/dLNormal8.6-10.3The [facility] Physician GroupComment on above:Performed By: #### BMP, CBC #### [place] [address] USAChloride [Moles/Vol]105 mmol/FGxrqnj46-287Uty [facility] Physician GroupComment on above:Performed By: #### BMP, CBC #### [facility] [address] [place] [address] USACO2 [Moles/Vol]22.6 mmol/DWkyocp17.0-31.0The [facility] Physician GroupComment on above:Performed By: #### BMP, CBC #### [facility] [address] [place] [address] USACreatinine [Mass/Vol]0.97 mg/dLNormal0.70-1.30The [facility] Physician GroupComment on above:Performed By: #### BMP, CBC #### [place] [address] USACreatinine Clr Calc Obrhbiay17.15NormalThe [facility] Physician GroupComment on above:Result Comment: PERFORMED BY: [place] [address] PATHOLOGIST ELECTRICAL SYSTEMS DESIGN ENGINEER MAXIM HERNANDEZ M.D.Performed By: #### BMP, CBC #### [place] [address] USAGFR/1.73 sq M.predicted MDRD (S/P/Bld) [Vol rate/Area] mL/min/{1.73_m2}NormalThe [facility] Physician GroupComment on above:Performed By: #### BMP, CBC #### [place] [address] USAGlucose [Mass/Vol]109 mg/vIAywk49-733Crq [facility] Physician GroupComment on above:Result Comment: Random Glucose Reference Range is dependent on time and content of last meal. Glucose of more than 200 mg/dL in a nonstressed, ambulatory subject supports the diagnosis of Diabetes Mellitus. ADA recommended reference rangePerformed By: #### BMP, CBC #### [place] [address] USAPotassium [Moles/Vol]3.6 mmol/LNormal3.5-5.1The [facility] Physician GroupComment on above:Performed By: #### BMP, CBC #### [place] [address] USASodium [Moles/Vol]137 mmol/HKljrsp647-777Ajx [facility] Physician GroupComment on above:Performed By: #### BMP, CBC #### [facility] [address] [place] [address] USAUrea nitrogen [Mass/Vol]30 mg/dLHigh7-25The [facility] Physician GroupComment on above:Performed By: #### BMP, CBC #### [place] [address] USAComplete Blood Count Auto Diffon 87-74-6263Dvugwmkjf (Bld) [#/Vol]0.0 10*3/uLNormal0.0-0.2The [facility] Physician GroupComment on above: Result Comment: PERFORMED BY: [place] [address] PATHOLOGIST ELECTRICAL SYSTEMS DESIGN ENGINEER MAXIM HERNANDEZ M.D.Performed By: #### BMP, CBC #### [place] [address] USABasophils/100 WBC (Bld)0.2 %Normal.The [facility] Physician GroupComment on above:Performed By: #### BMP, CBC #### [place] [address] USAEosinophils (Bld) [#/Vol]0.0 10*3/uLNormal0.0-0.45The [facility] Physician GroupComment on above:Performed By: #### BMP, CBC #### [place] [address] USAEosinophils/100 WBC (Bld)0.1 %Normal.The [facility] Physician GroupComment on above:Performed By: #### BMP, CBC #### [place] [address] USAErythrocyte distribution width (RBC) [Ratio]15.4 %High 12.0-14.8The [facility] Physician GroupComment on above:Performed By: #### BMP, CBC #### [place] [address] USAHematocrit (Bld) [Volume fraction]32.2 %Low38.8-50.0The [facility] Physician GroupComment on above:Performed By: #### BMP, CBC #### [facility] [address] [place] [address] USAHemoglobin (Bld) [Mass/Vol]11.3 g/dLLow13.0-17.0The [facility] Physician GroupComment on above:Performed By: #### BMP, CBC #### [place] [address] USALymphocytes (Bld) [#/Vol]0.4 10*3/uLLow1.00-4.8The [facility] Physician GroupComment on above:Performed By: #### BMP, CBC #### [place] [address] USALymphocytes/100 WBC (Bld)10.3 %Normal.The [facility] Physician GroupComment on above:Performed By: #### BMP, CBC #### [place] [address] USAMCH (RBC) [Entitic mass]33.0 zdLyojbs32.5-35.2The [facility] Physician GroupComment on above:Performed By: #### BMP, CBC #### [place] [address] USAMCV (RBC) [Entitic vol]93.6 aNWqptxt74.5-101The [facility] Physician GroupComment on above:Performed By: #### BMP, CBC #### [place] [address] USAMean Corpuscular HGB Conc35.2 g/kFMdgaop37.5-35.6The [facility] Physician GroupComment on above:Performed By: #### BMP, CBC #### [place] [address] USAMonocytes (Bld) [#/Vol]0.5 10*3/uLNormal0.0-0.8The [facility] Physician GroupComment on above:Performed By: #### BMP, CBC #### [place] [address] USAMonocytes/100 WBC (Bld)12.5 %Normal.The [facility] Physician GroupComment on above:Performed By: #### BMP, CBC #### [facility] [address] [place] [address] USANeutrophils (Bld) [#/Vol]2.9 10*3/uLNormal1.8-7.7The [facility] Physician GroupComment on above:Performed By: #### BMP, CBC #### [facility] [address] [place] [address] USANeutrophils/100 WBC (Bld)76.9 %Normal.The [facility] Physician GroupComment on above:Performed By: #### BMP, CBC #### [place] [address] USANRBC%0.2 /100{WBC}Normal0-0.5The [facility] Comment on above:Performed By: #### BMP, CBC #### [facility] [address] [place] [address] USAPlatelet mean volume (Bld) [Entitic vol]7.3 fLNormal 6.6-10.1The [facility] Physician GroupComment on above:Performed By: #### BMP, CBC #### [place] [address] USAPlatelets (Bld) [#/Vol]268 10*3/hSNtkuqf013-376Pzm [facility] Physician GroupComment on above:Performed By: #### BMP, CBC #### [place] [address] USARBC (Bld) [#/Vol]3.44 10*6/uLLow3.90-5.60The [facility] Physician GroupComment on above:Performed By: #### BMP, CBC #### [place] [address] USAWBC (Bld) [#/Vol]3.7 10*3/uLLow4.1-10.5The [facility] Physician GroupComment on above:Performed By: #### BMP, CBC #### [place] [address] USAite Blood Count3.7 [CFU]/mLLow4.1-10.5The [facility] Physician GroupComment on above:Performed By: #### BMP, CBC #### [place] [address] USAPartial Thromboplastin Timeon [id number] Coag (Bld) [Time]24.4 sLow25.1-36.5The [facility] Physician GroupComment on above:Result Comment: A hematocrit value greater than 55% may lead to inaccurate results in coagulation testing. Patients having hematocrit values >55% require a special collection tube for coagulation studies. Please contact the laboratory at [phone] for redraw instructions. PERFORMED BY: [place] [address] PATHOLOGIST ELECTRICAL SYSTEMS DESIGN ENGINEER MAXIM HERNANDEZ M.D.Performed By: #### CBC #### [place] [address] USAProthrombin Time INRon [id number] Coag (PPP) [Relative time]1.2 {INR}NormalThe [facility] Physician GroupComment on above:Result Comment: [...] 3 - 4.5Performed By: #### CBC #### [place] [address] USAPT Coag (PPP) [Time]13.5 sHigh9.0-12.9The [facility] Physician GroupComment on above:Result Comment: A hematocrit value greater than 55% may lead to inaccurate results in coagulation testing. Patients having hematocrit values >55% require a special collection tube for coagulation studies. Please contact the laboratory at [phone] for redraw instructions.Performed By: #### CBC #### [place] [address] USAXR chest 1V portableon [id number] chest 1V portable [facility] [place] [address] [place] [address] XRay Report Signed Patient: Tristin Powell MR#: [id number] : 1940 Acct:[id number] Age/Sex: 85 / M ADM Date: 05/04/25 Loc: Room: [address] [place] [address] Type: ADM IN Attending Dr: Ben Reddy [...] Jr., D.O. 05/07/2025 10:05 AM Dictation Location: [place] [address] Transcribed By: [facility] 05/07/25 1005 Dictated By: Nabor Solitario Jr, DO 05/07/25 1004 Signed By: 05/07/25 1005NormCommunity Hospital Physician GroupBasic Metabolic Panelon 69-99-3924Mpjet gap [Moles/Vol]10.9 mmol/LNormal6.0-15.0The [facility] Physician GroupComment on above:Performed By: #### BMP, CBC #### [facility] [address] [place] [address] USACalcium [Mass/Vol]8.5 mg/dLLow8.6-10.3The [facility] Physician GroupComment on above:Performed By: #### BMP, CBC #### [facility] [address] [place] [address] USAChloride [Moles/Vol]102 mmol/RTuqtao08-439Dpb [facility] Physician GroupComment on above:Performed By: #### BMP, CBC #### [facility] [address] [place] [address] USACO2 [Moles/Vol]23.6 mmol/EFndepc96.0-31.0The [facility] Physician GroupComment on above:Performed By: #### BMP, CBC #### [facility] [address] [place] [address] USACreatinine [Mass/Vol]1.14 mg/dLNormal0.70-1.30The [facility] Physician GroupComment on above:Performed By: #### BMP, CBC #### [place] [address] USACreatinine Clr Calc Dwlwaxxr32.53NormalThe [facility] Physician GroupComment on above:Result Comment: PERFORMED BY: [place] [address] PATHOLOGIST ELECTRICAL SYSTEMS DESIGN ENGINEER MAXIM HERNANDEZ M.D.Performed By: #### BMP, CBC #### [place] [address] USAGFR/1.73 sq M.predicted MDRD (S/P/Bld) [Vol rate/Area] mL/min/{1.73_m2}NormalThe [facility] Physician GroupComment on above:Performed By: #### BMP, CBC #### [place] [address] USAGlucose [Mass/Vol]115 mg/hONjwt45-975Udt [facility] Physician GroupComment on above:Result Comment: Random Glucose Reference Range is dependent on time and content of last meal. Glucose of more than 200 mg/dL in a nonstressed, ambulatory subject supports the diagnosis of Diabetes Mellitus. ADA recommended reference rangePerformed By: #### BMP, CBC #### [place] [address] USAPotassium [Moles/Vol]3.5 mmol/LNormal3.5-5.1The [facility] Physician GroupComment on above:Performed By: #### BMP, CBC #### [address] [place] [address] USASodium [Moles/Vol]133 mmol/QEmg741-140Zkm [facility] Physician GroupComment on above:Performed By: #### BMP, CBC #### [facility] [address] [place] [address] USAUrea nitrogen [Mass/Vol]35 mg/dLHigh7-25The [facility] Physician GroupComment on above:Performed By: #### BMP, CBC #### [facility] [address] [place] [id number] USACT chest wo conon [id number] chest wo [facility] [place] [address] [place] [address] CT Scan Report Signed Patient: Tristin Powell MR#: [id number] : 1940 Acct:[id number] Age/Sex: 85 / M ADM Date: 05/04/25 Loc: Room: [address] [place] [address] Type: ADM IN Attending Dr: Ben Reddy [...] Jr., D.O. 05/06/2025 12:36 PM Dictation Location: [place] [address] Transcribed By: [facility] 05/06/25 1236 Dictated By: Nabor Solitario Jr, DO 05/06/25 1230 Signed By: 05/06/25 1236NormCommunity Hospital Physician GroupCoagulation Profileon 05-06-2025 aPTT Coag (Bld) [Time]27.8 zZpglci71.1-36.5[facility] Physician [facility] on above:Order Comment: PER NURSE PRACTITIONER ANN- WANTS TO WAIT UNTIL 1400, HE HAS A CBC AT 1400.Result Comment: A hematocrit value greater than 55% may lead to inaccurate results in coagulation testing. Patients having hematocrit values >55% require a special collection tube for coagulation studies. Please contact the laboratory at [phone] for redraw instructions. PERFORMED BY: [place] [address] PATHOLOGIST ELECTRICAL SYSTEMS DESIGN ENGINEER MAXIM HERNANDEZ M.D.Performed By: #### BMP, CBC #### [place] [address] USAINR Coag (PPP) [Relative time]1.4 {INR}NormalThe [facility] Physician [facility] WesleyComment on above:Order Comment: PER NURSE PRACTITIONER ANN- [...] - 4.5Performed By: #### BMP, CBC #### [address] [address] USAPT Coag (PPP) [Time]15.9 sHigh9.0-12.9The [facility] Physician GroupComment on above:Order Comment: PER NURSE PRACTITIONER ANN- WANTS TO WAIT UNTIL 1400, HE HAS A CBC AT 1400.Result Comment: A hematocrit value greater than 55% may lead to inaccurate results in coagulation testing. Patients having hematocrit values >55% require a special collection tube for coagulation studies. Please contact the laboratory at [phone] for redraw instructions.Performed By: #### BMP, CBC #### [place] [address] USAComplete Blood Count Auto Diffon 67-84-4661Rkoieydsy (Bld) [#/Vol]0.0 10*3/uLNormal0.0-0.2The [facility] Physician GroupComment on above: Result Comment: PERFORMED BY: [place] [address] PATHOLOGIST ELECTRICAL SYSTEMS DESIGN ENGINEER MAXIM HERNANDEZ M.D.Performed By: #### CBC #### [place] [address] USABasophils/100 WBC (Bld)0.1 %Normal.The [facility] Physician GroupComment on above:Performed By: #### CBC #### [place] [address] USAEosinophils (Bld) [#/Vol]0.0 10*3/uLNormal0.0-0.45The [facility] Physician GroupComment on above:Performed By: #### CBC #### [place] [address] USAEosinophils/100 WBC (Bld)0.1 %Normal.The [facility] Physician GroupComment on above:Performed By: #### CBC #### [place] [address] USAErythrocyte distribution width (RBC) [Ratio]15.2 %High 12.0-14.8The [facility] Physician GroupComment on above:Performed By: #### CBC #### [place] [address] USAHematocrit (Bld) [Volume fraction]32.8 %Low38.8-50.0The [facility] Physician GroupComment on above:Performed By: #### CBC #### [facility] [address] [place] [address] USAHemoglobin (Bld) [Mass/Vol]11.7 g/dLLow13.0-17.0The [facility] Physician GroupComment on above:Performed By: #### CBC #### [facility] [address] [place] [address] USALymphocytes (Bld) [#/Vol]0.2 10*3/uLLow1.00-4.8The [facility] Physician GroupComment on above:Performed By: #### CBC #### [facility] [address] [place] [address] USALymphocytes/100 WBC (Bld)6.5 %Normal.The [facility] Physician GroupComment on above:Performed By: #### CBC #### [place] [address] USAMCH (RBC) [Entitic mass]32.6 smXwgszu33.5-35.2The [facility] Physician GroupComment on above:Performed By: #### CBC #### [place] [address] USAMCV (RBC) [Entitic vol]91.6 lEZnxopj42.5-101The [facility] Physician GroupComment on above:Performed By: #### CBC #### [place] [address] USAMean Corpuscular HGB Conc35.6 g/tMIciofs00.5-35.6The [facility] Physician GroupComment on above:Performed By: #### CBC #### [facility] [address] [place] [address] USAMonocytes (Bld) [#/Vol]0.3 10*3/uLNormal0.0-0.8The [facility] Physician GroupComment on above:Performed By: #### CBC #### [place] [address] USAMonocytes/100 WBC (Bld)10.4 %Normal.The [facility] Physician GroupComment on above:Performed By: #### CBC #### [facility] [address] [place] [address] USANeutrophils (Bld) [#/Vol]2.1 10*3/uLNormal1.8-7.7The [facility] Physician GroupComment on above:Performed By: #### CBC #### [facility] [address] [place] [address] USANeutrophils/100 WBC (Bld)82.9 %Normal.The [facility] Physician GroupComment on above:Performed By: #### CBC #### [facility] [address] [place] [address] USANRBC%0.2 /100{WBC}Normal0-0.5The [facility] Comment on above:Performed By: #### CBC #### [facility] [address] [place] [address] USAPlatelet mean volume (Bld) [Entitic vol]7.3 fLNormal 6.6-10.1The [facility] Physician GroupComment on above:Performed By: #### CBC #### [facility] [address] [place] [address] USAPlatelets (Bld) [#/Vol]222 10*3/aNHofcid888-659Atl [facility] Physician GroupComment on above:Performed By: #### CBC #### [facility] [address] [place] [address] USARBC (Bld) [#/Vol]3.59 10*6/uLLow3.90-5.60The [facility] Physician GroupComment on above:Performed By: #### CBC #### [facility] [address] [place] [address] USAWBC (Bld) [#/Vol]2.5 10*3/uLLow4.1-10.5The [facility] Physician GroupComment on above:Performed By: #### CBC #### [facility] [address] [place] [address] USAWhite Blood Count2.5 [CFU]/mLLow4.1-10.5The [facility] Physician GroupComment on above:Performed By: #### CBC #### [place] [address] USABasophils (Bld) [#/Vol]0.0 10*3/uLNormal0.0-0.2The [facility] Physician GroupComment on above:Result Comment: PERFORMED BY: [place] [address] PATHOLOGIST ELECTRICAL SYSTEMS DESIGN ENGINEER MAXIM HERNANDEZ M.D.Performed By: #### BMP, CBC #### [place] [address] USABasophils/100 WBC (Bld)0.1 %Normal.The [facility] Physician GroupComment on above:Performed By: #### BMP, CBC #### [place] [address] USAEosinophils (Bld) [#/Vol]0.0 10*3/uLNormal0.0-0.45The [facility] Physician GroupComment on above:Performed By: #### BMP, CBC #### [place] [address] USAEosinophils/100 WBC (Bld)0.2 %Normal.The [facility] Physician GroupComment on above:Performed By: #### BMP, CBC #### [place] [address] USAErythrocyte distribution width (RBC) [Ratio]15.3 %High 12.0-14.8The [facility] Physician GroupComment on above:Performed By: #### BMP, CBC #### [place] [address] USAHematocrit (Bld) [Volume fraction]29.9 %Low38.8-50.0The [facility] Physician GroupComment on above:Performed By: #### BMP, CBC #### [place] [address] USAHemoglobin (Bld) [Mass/Vol]10.7 g/dLLow13.0-17.0The [facility] Physician GroupComment on above:Performed By: #### BMP, CBC #### [facility] [address] [place] [address] USALymphocytes (Bld) [#/Vol]0.3 10*3/uLLow1.00-4.8The [facility] Physician GroupComment on above:Performed By: #### BMP, CBC #### [place] [address] USALymphocytes/100 WBC (Bld)13.1 %Normal.The [facility] Physician GroupComment on above:Performed By: #### BMP, CBC #### [place] [address] USAH (RBC) [Entitic mass]33.1 npNfqaib35.5-35.2The [facility] Physician GroupComment on above:Performed By: #### BMP, CBC #### [place] [address] USAV (RBC) [Entitic vol]92.7 vZVwfahp29.5-101The [facility] Physician GroupComment on above:Performed By: #### BMP, CBC #### [place] [address] USAMean Corpuscular HGB Conc35.7 g/rTBmlv46.5-35.6The [facility] Physician GroupComment on above:Performed By: #### BMP, CBC #### [place] [address] USAMonocytes (Bld) [#/Vol]0.5 10*3/uLNormal0.0-0.8The [facility] Physician GroupComment on above:Performed By: #### BMP, CBC #### [place] [address] USAMonocytes/100 WBC (Bld)17.7 %Normal.The [facility] Physician GroupComment on above:Performed By: #### BMP, CBC #### [place] [address] USANeutrophils (Bld) [#/Vol]1.8 10*3/uLNormal1.8-7.7The [facility] Physician GroupComment on above:Performed By: #### BMP, CBC #### [place] [address] USANeutrophils/100 WBC (Bld)68.9 %Normal.The [facility] Physician GroupComment on above:Performed By: #### BMP, CBC #### [facility] [address] [place] [address] USANRBC%0.1 /100{WBC}Normal0-0.5[facility] Comment on above:Performed By: #### BMP, CBC #### [place] [address] USAPlatelet mean volume (Bld) [Entitic vol]7.3 fLNormal 6.6-10.1The [facility] Physician GroupComment on above:Performed By: #### BMP, CBC #### [place] [address] USAPlatelets (Bld) [#/Vol]200 10*3/eQAmkpck566-151Xrc [facility] Physician GroupComment on above:Performed By: #### BMP, CBC #### [place] [address] USARBC (Bld) [#/Vol]3.23 10*6/uLLow3.90-5.60[facility] Physician GroupComment on above:Performed By: #### BMP, CBC #### [place] [address] USAWBC (Bld) [#/Vol]2.7 10*3/uLLow4.1-10.5[facility] Physician GroupComment on above:Performed By: #### BMP, CBC #### [place] [address] USAWhite Blood Count2.7 [CFU]/mLLow4.1-10.5[facility] Physician GroupComment on above:Performed By: #### BMP, CBC #### [place] [address] USALegionella Pneumophilia Ag, Uron 61-84-2016Axqzfblhae Pneumophilia Ag, UrNegativeNormalNegativeThe [facility] Physician GroupComment on above:Order Comment: Faxed Results to [facility] [phone] at 1525 on 05/09/25 Result Comment: Presumptive negative for L. pneumophila serogroup 1 antigen in urine, suggesting no recent or current infection. Legionnaires' disease cannot be ruled out since other serogroups and species may also cause disease. Performed at: [address] [id number] Animal Cruelty Investigator: Kate Austin MD, Phone: [phone] By: #### URLEGIONELLA, UR STP AG ####[facility] ,Strep Pneumoniae Ag, Uron 49-26-4824Lzao Fluid CultureNot indicated.Normal.[facility] Comment on above:Order Comment: Faxed Results to [facility] [phone] at 1525 on 05/09/25Performed By: #### URLEGIONELLA, UR STP AG ####[facility] , Organism IDNot indicated.Normal.[facility] Physician GroupComment on above: Order Comment: Faxed Results to [facility] [phone] at 1525 on 05/09/25Performed By: #### URLEGIONELLA, UR STP AG ####[facility] ,Please Note:Comment Normal.[facility] Physician GroupComment on above:Order Comment: Faxed Results to [facility] [phone] at 1525 on 05/09/25Result Comment: [employer] standards require a culture to be performed on CSF specimens submitted for bacterial antigen testing. (CAP PETER.[id number]) Urine specimens will not be cultured. [employer] standards require a culture to be performed on CSF specimens submitted for bacterial antigen testing. (CAP PETER.[id number]) Urine specimens will not be cultured. Performed at: [address] [id number] Animal Cruelty Investigator: Kate Austin MD, Phone: [phone] --- 05/08/25 1636 --- Please Note: previously reported as: Comment [employer] standards require a culture to be performed on CSF specimens submitted for bacterial antigen testing. (CAP PETER.[id number]) Urine specimens will not be cultured. PERFORMED BY: [address] [address] PATHOLOGIST ELECTRICAL SYSTEMS DESIGN ENGINEER MAXIM HERNANDEZ M.D.Performed By: #### URLEGIONELLA, UR STP AG ####[facility] ,Specimen source Nom (Unsp spec)UrineNormal.[facility] Physician GroupComment on above:Order Comment: Faxed Results to [facility] [phone] at 1525 on 05/09/25Performed By: #### URLEGIONELLA, UR STP AG ####[facility] , Streptococcus Pneumoniae AgNegativeNormalNegativeThe [facility] Comment on above:Order Comment: Faxed Results to [facility] [phone] at 1525 on 05/09/25Performed By: #### URLEGIONELLA, UR STP AG ####[facility] , Aerobic Cultureon [id number] CultureFaxed Results to [facility] [phone] at 1525 on 05/09/25 Result Tab Codes Heavy Normal Respiratory Cameron 2 Days Faxed Results to [facility] [phone] at 1525 on 05/09/25 Gram Stain Result 3+ Gram Positive Cocci in Pairs 3+ Gram Positive Cocci in Clusters 3+ Gram Negative Bacilli 3+ White Blood Cells 2+ Epithelial Cells Rare Yeast Like Elements PERFORMED BY: [address] [address] PATHOLOGIST ELECTRICAL SYSTEMS DESIGN ENGINEER MAXIM HERNANDEZ M.D.NormalThe [facility] Physician GroupComment on above: Performed By: #### AERC, GS #### [address] [address] USABasic Metabolic Panelon 22-98-0515Dkeqh gap [Moles/Vol] 14.3 mmol/LNormal6.0-15.0[facility] Physician GroupComment on above:Performed By: #### BMP, CBC #### [place] [address] USACalcium [Mass/Vol]8.9 mg/dLNormal8.6-10.3[facility] Physician GroupComment on above:Performed By: #### BMP, CBC #### [place] [address] USAChloride [Moles/Vol]97 mmol/XRda56-919Bzg [facility] Physician GroupComment on above:Performed By: #### BMP, CBC #### [place] [address] USACO2 [Moles/Vol]24.8 mmol/AOtxajd72.0-31.0[facility] Physician GroupComment on above:Performed By: #### BMP, CBC #### [place] [address] USACreatinine [Mass/Vol]1.45 mg/dLHigh0.70-1.30The [facility] Physician GroupComment on above:Performed By: #### BMP, CBC #### [place] [address] USACreatinine Clr Calc Uppkyxko87.59NormalThe [facility] Physician GroupComment on above:Result Comment: PERFORMED BY: [place] [address] PATHOLOGIST ELECTRICAL SYSTEMS DESIGN ENGINEER MAXIM HERNANDEZ M.D.Performed By: #### BMP, CBC #### [place] [address] USAGFR/1.73 sq M.predicted MDRD (S/P/Bld) [Vol rate/Area] 46.930 mL/min/{1.73_m2}NormalThe [facility] Physician GroupComment on above: Performed By: #### BMP, CBC #### [place] [address] USAGlucose [Mass/Vol]139 mg/xDGoko04-570Oee [facility] Physician GroupComment on above:Result Comment: Random Glucose Reference Range is dependent on time and content of last meal. Glucose of more than 200 mg/dL in a nonstressed, ambulatory subject supports the diagnosis of Diabetes Mellitus. ADA recommended reference rangePerformed By: #### BMP, CBC #### [facility] [address] [place] [address] USAPotassium [Moles/Vol]4.1 mmol/LNormal3.5-5.1The [facility] Physician GroupComment on above:Performed By: #### BMP, CBC #### [facility] [address] [place] [address] USASodium [Moles/Vol]132 mmol/OSmr219-689Qev [facility] Physician GroupComment on above:Performed By: #### BMP, CBC #### [facility] [address] [place] [address] USAUrea nitrogen [Mass/Vol]32 mg/dLHigh7-25The [facility] Physician GroupComment on above:Performed By: #### BMP, CBC #### [facility] [address] [place] [id number] USACT angio chest PE protocolon 29-50-2107HY angio chest PE protocolMOUNT [facility]. [facility] [place] [address] [place] [address] CT Scan Report Signed Patient: Tristin Powell MR#: [id number] : 1940 Acct:[id number] Age/Sex: 85 / M ADM Date: 05/04/25 Loc: Room: [address] [place] [address] Type: ADM IN Attending Dr: Adiel Mccollum [...] Rodriguez M.D. 05/05/2025 8:31 AM Dictation Location: [place] [address] Transcribed By: [facility] 05/05/25830 Dictated By: Cristian Rodriguez DO 05/05/2528 Signed By: 05/05/2531[facility] Physician GroupBenito and Shmuel 05-05-2025 Anisocytosis Ql (Bld)SlightNoCommunity Health Physician GroupComment on above: Performed By: #### BMP, CBC #### [place] [address] USABand form neutrophils/100 WBC (Bld)22 %High0-5The [facility] Physician GroupComment on above:Performed By: #### BMP, CBC #### [facility] [address] [place] [address] USACrenated RBCSlightAdventHealth Lake Mary ER Physician Group Comment on above:Performed By: #### BMP, CBC #### [place] [address] USAErythrocyte distribution width (RBC) [Ratio]16.0 %High 12.0-14.8The [facility] Physician GroupComment on above:Performed By: #### BMP, CBC #### [place] [address] USAHematocrit (Bld) [Volume fraction]35.0 %Low38.8-50.0The [facility] Physician GroupComment on above:Performed By: #### BMP, CBC #### [place] [address] USAHemoglobin (Bld) [Mass/Vol]12.4 g/dLLow13.0-17.0[facility] Physician GroupComment on above:Performed By: #### BMP, CBC #### [place] [address] USALymphocytes/100 WBC (Bld)6 %Vgw74-56Dse [facility] Physician GroupComment on above:Performed By: #### BMP, CBC #### [place] [address] USAMCH (RBC) [Entitic mass]32.8 rkWocjyy40.5-35.2The [facility] Physician GroupComment on above:Performed By: #### BMP, CBC #### [place] [address] USAMCV (RBC) [Entitic vol]92.6 jBKwhryb84.5-101The [facility] Physician GroupComment on above:Performed By: #### BMP, CBC #### [place] [address] USAMean Corpuscular HGB Conc35.4 g/aNEuoikg75.5-35.6The [facility] Physician GroupComment on above:Performed By: #### BMP, CBC #### [place] [address] USAMetamyelocytes2 %High0-0[facility] Comment on above:Performed By: #### BMP, CBC #### [place] [address] USAMonocytes/100 WBC (Bld)8 %Normal2-11The [facility]ician GroupComment on above:Performed By: #### BMP, CBC #### [place] [address] USAPlatelet EstimateNormalNormalNoCommunity Health Physician GroupComment on above:Performed By: #### BMP, CBC #### [place] [address] USAPlatelet mean volume (Bld) [Entitic vol]7.3 fLNormal 6.6-10.1The [facility] Physician GroupComment on above:Performed By: #### BMP, CBC #### [place] [address] USAPlatelet MorphologyNormalNormalNormCommunity Hospital Physician GroupComment on above:Result Comment: PERFORMED BY: [place] [address] PATHOLOGIST ELECTRICAL SYSTEMS DESIGN ENGINEER MAXIM HERNANDEZ M.D.Performed By: #### BMP, CBC #### [place] [address] USAPlatelets (Bld) [#/Vol]248 10*3/cPGvbuwc500-323Aky [facility]ician GroupComment on above:Performed By: #### BMP, CBC #### [place] [address] USARBC (Bld) [#/Vol]3.78 10*6/uLLow3.90-5.60The [facility] Physician GroupComment on above:Performed By: #### BMP, CBC #### [place] [address] USASegmented neutrophils/100 WBC (Bld)62 %Ormhbw14-64Kck [facility] Physician GroupComment on above:Performed By: #### BMP, CBC #### [place] [address] USAToxic VacuolationSlightNoCommunity Health Physician Group Comment on above:Performed By: #### BMP, CBC #### [place] [address] USAWBC (Bld) [#/Vol]7.6 10*3/uLNormal4.1-10.5The [facility] Physician GroupComment on above:Performed By: #### BMP, CBC #### [facility] [address] [place] [address] USAWhite Blood Count7.6 [CFU]/mLNormal4.1-10.5The [facility] Physician GroupComment on above:Performed By: #### BMP, CBC #### [facility] [address] [place] [id number] USAECH echo transthoracicon 31-42-0962LNK echo transthoracic [facility] [place] [address] [place] [address] Echocardiogram Signed Patient: Tristin Powell MR#: [id number] : 1940 Acct:[id number] Age/Sex: 85 / M ADM Date: 05/04/25 Loc: Room: [address] [place] [address] Type: ADM IN Attending Dr: Ben Reddy DO Ordering Provider: Mell Hou APRN Date of Service: 05/03/2502/19/1109 ECH/ECH echo transthoracic: Chest pain Copies to: MD Mell Morton, COMMUNITY SERVICE OFFICER COORDINATOR 11:27 AM Patient Location: : 1940 Gender: [...] + + Tech Comments previous echo in [facility]. No previous echo. Transcribed By: YUSUF Performed At: 05/05/25 1127 Signed By: Eliezer Villa MD 05/05/[address] [place] [address] Physician GroupGram Stainon 05-31-5970Kjoshvllkia observation Gram stain Nom (Unsp spec)Gram Stain Result 3+ Gram Positive Cocci in Pairs 3+ Gram Positive Cocci in Clusters 3+ Gram Negative Bacilli 3+ White Blood Cells 2+ Epithelial Cells Rare Yeast Like Elements PERFORMED BY: [place] [address] PATHOLOGIST ELECTRICAL SYSTEMS DESIGN ENGINEER MAXIM HERNANDEZ M.D.[facility] Physician [facility] WesleyComment on above: Performed By: #### AERC, #### [place] [address] USAXR chest 1V portableon 84-99-9222VB chest 1V portable [facility] [place] [address] [place] [address] XRay Report Signed Patient: Tristin Pwoell MR#: [id number] : 1940 Acct:[id number] Age/Sex: 85 / M ADM Date: 05/04/25 Loc: Room: [address] [place] [address] Type: ADM IN Attending Dr: Adiel Mccollum [...] Rodriguez M.D. 05/05/2025 9:21 AM Dictation Location: [place] [address] Transcribed By: [facility] 05/05/25920 Dictated By: Cristian Rodriguez DO 05/05/25919 Signed By: 05/05/25920[facility] Physician GroupAerobic Cultureon 05-04-2025 Aerobic CultureFaxed Results to [facility] [phone] at 1525 on 05/09/25 ORGANISM: Streptococcus pneumoniae (O:STRPNE) Quantity of Growth Heavy Growth ORGANISM: Pseudomonas aeruginosa (O:PSEAER) Quantity of Growth Light Growth Faxed Results to [facility] [phone] at 1525 on 05/09/25 Gram Stain Result [...] RESISTANT TO ALL B-LACTAM DRUGS. PERFORMED BY: [place] [id number] PATHOLOGIST ELECTRICAL SYSTEMS DESIGN ENGINEER MAXMI HERNANDEZ M.D.[facility] Physician GroupComment on above: Performed By: #### AERC, GS #### [place] [id number] USAECG 12 lead ECGon 41-70-7258BUW [address] [facility] [place] [address] [place] [address] Electrocardiograph Report Signed Patient: Tristin Powell MR#: [id number] : 1940 Acct:[id number] Age/Sex: 85 / M ADM Date: 05/04/25 Loc: Room: [address] [place] [address] Type: ADM IN Attending Dr: Ben Reddy [...] no longer present Confirmed by Eliezer Villa ([id number]) on 05/05/2025 5:26:36 PM Referred By: Electronically Signed By: Eliezer Villa Transcribed By: MUS Signed By Eliezer Villa MD 05/05/[address] [place] [address] Physician GroupGram Stainon 05-04-2025 Microscopic observation Gram stain Nom (Unsp spec)Gram Stain Result 3+ White Blood Cells 3+ Epithelial Cells 3+ Gram Positive Bacilli 3+ Gram Positive Cocci in Chains AND PAIRS 3+ Gram Negative Cocci 2+ Gram Negative Bacilli PERFORMED BY: [place] [address] PATHOLOGIST ELECTRICAL SYSTEMS DESIGN ENGINEER MAXIM HERNANDEZ M.D.[facility] Physician GroupComment on above: Performed By: #### AERC, GS #### [place] [address] USAMRSA - MSSA Nasal PCRon [id number] - MSSA Nasal PCR Faxed Results to [facility] [phone] at 1525 on 05/09/25 MRSA Result MRSA Negative MSSA Result MSSA Negative Real-time PCR Test performed by real-time PCR Reference Range Reference Range for all targets = Neg / Not Detected Reference Note 20 Reference Note 26 PERFORMED BY: [place] [address] PATHOLOGIST ELECTRICAL SYSTEMS DESIGN ENGINEER MAXIM HERNANDEZ M.D.[facility] Physician GroupComment on above: Performed By: #### MRSA - MSSA PCR #### [facility] [address] [place] [address] USAMagnesiumon 17-11-2990Tnwylbioq [Mass/Vol]1.7 mg/dLLow 1.9-2.7The [facility] Physician [facility] WesleyComment on above:Result Comment: PERFORMED BY: [place] [address] PATHOLOGIST ELECTRICAL SYSTEMS DESIGN ENGINEER MAXIM HERNANDEZ M.D.Performed By: #### MG ####[place] [address] [place] [address] USATroponin I High Sensitivityon 68-84-8728Ulwhtzyg I High Reacgtfnxdg13Bews7-56Buq [facility] Comment on above:Result Comment: The Troponin units of report have been changed to meet the Chest Pain Accreditation requirement, element EC5.M1l2. Troponin units are changed from pg/ml to ng/L. Also, the decimal is removed and results are in whole numbers. PERFORMED BY: [place] [address] PATHOLOGIST ELECTRICAL SYSTEMS DESIGN ENGINEER MAXIM HERNANDEZ M.D.Performed By: #### CBC #### [place] [address] USABasic Metabolic Panelon 30-38-5998Flteq gap [Moles/Vol] 12.6 mmol/LNormal6.0-15.0The [facility] Physician GroupComment on above:Order Comment: FASTING YPerformed By: #### CBC #### [place] [address] USACalcium [Mass/Vol]9.3 mg/dLNormal8.6-10.3The [facility] Physician GroupComment on above:Order Comment: FASTING YPerformed By: #### CBC #### [place] [address] USAChloride [Moles/Vol]103 mmol/ZOulfay56-908Bih [facility] Physician GroupComment on above:Order Comment: FASTING YPerformed By: #### CBC #### [place] [address] USACO2 [Moles/Vol]26.4 mmol/BUhqsqg69.0-31.0The [facility] Physician GroupComment on above:Order Comment: FASTING YPerformed By: #### CBC #### [place] [address] USACreatinine [Mass/Vol]0.90 mg/dLNormal0.70-1.30The [facility] Physician GroupComment on above:Order Comment: FASTING YPerformed By: #### CBC #### [facility] [address] [place] [address] USACreatinine Clr Calc Hgcgyvpy31.27NormalThe [facility] Physician GroupComment on above:Order Comment: FASTING YPerformed By: #### CBC #### [facility] [address] [place] [address] USAGFR/1.73 sq M.predicted MDRD (S/P/Bld) [Vol rate/Area] mL/min/{1.73_m2}NormalThe [facility] Physician GroupComment on above:Order Comment: FASTING YPerformed By: #### CBC #### [facility] [address] [place] [address] USAGlucose [Mass/Vol]87 mg/bEMlvmwc83-222Isd [facility] Physician GroupComment on above:Order Comment: FASTING YResult Comment: Random Glucose Reference Range is dependent on time and content of last meal. Glucose of more than 200 mg/dL in a nonstressed, ambulatory subject supports the diagnosis of Diabetes Mellitus. ADA recommended reference rangePerformed By: #### CBC #### [place] [address] USAPotassium [Moles/Vol]4.0 mmol/LNormal3.5-5.1The [facility] Physician GroupComment on above:Order Comment: FASTING YPerformed By: #### CBC #### [place] [address] USASodium [Moles/Vol]138 mmol/TSvaksl218-133Uoo [facility]ician GroupComment on above:Order Comment: FASTING YPerformed By: #### CBC #### [facility] [address] [place] [address] USAUrea nitrogen [Mass/Vol]22 mg/dLNormal7-25The [facility] Physician GroupComment on above:Order Comment: FASTING YPerformed By: #### CBC #### [place] [address] USAComplete Blood Count Auto Diffon 31-16-9514Tgtggumqn (Bld) [#/Vol]0.0 10*3/uLNormal0.0-0.2The [facility] Physician GroupComment on above: Result Comment: PERFORMED BY: [place] [address] PATHOLOGIST ELECTRICAL SYSTEMS DESIGN ENGINEER MAXIM HERNANDEZ M.D.Performed By: #### CBC #### [place] [address] USABasophils/100 WBC (Bld)0.4 %Normal.The [facility] Physician GroupComment on above:Performed By: #### CBC #### [place] [address] USAEosinophils (Bld) [#/Vol]0.0 10*3/uLNormal0.0-0.45The [facility] Physician GroupComment on above:Performed By: #### CBC #### [place] [address] USAEosinophils/100 WBC (Bld)0.5 %Normal.The [facility] Physician GroupComment on above:Performed By: #### CBC #### [place] [address] USAErythrocyte distribution width (RBC) [Ratio]15.9 %High 12.0-14.8The [facility] Physician GroupComment on above:Performed By: #### CBC #### [place] [address] USAHematocrit (Bld) [Volume fraction]33.8 %Low38.8-50.0The [facility] Physician GroupComment on above:Performed By: #### CBC #### [place] [address] USAHemoglobin (Bld) [Mass/Vol]11.9 g/dLLow13.0-17.0The [facility] Physician GroupComment on above:Performed By: #### CBC #### [place] [address] USALymphocytes (Bld) [#/Vol]0.6 10*3/uLLow1.00-4.8The [facility] Physician GroupComment on above:Performed By: #### CBC #### [facility] [address] [place] [address] USALymphocytes/100 WBC (Bld)20.9 %Normal.The [facility] Physician GroupComment on above:Performed By: #### CBC #### [facility] [address] [place] [address] USAMCH (RBC) [Entitic mass]33.3 ytBqxvtk25.5-35.2The [facility] Physician GroupComment on above:Performed By: #### CBC #### [facility] [address] [place] [address] USAMCV (RBC) [Entitic vol]94.3 bYIoppbk09.5-101The [facility] Physician GroupComment on above:Performed By: #### CBC #### [place] [address] USAMean Corpuscular HGB Conc35.3 g/hARrdboo64.5-35.6The [facility] Physician GroupComment on above:Performed By: #### CBC #### [place] [address] USAMonocytes (Bld) [#/Vol]0.6 10*3/uLNormal0.0-0.8The [facility] Physician GroupComment on above:Performed By: #### CBC #### [place] [address] USAMonocytes/100 WBC (Bld)23.2 %Normal.The [facility] Physician GroupComment on above:Performed By: #### CBC #### [place] [address] USANeutrophils (Bld) [#/Vol]1.5 10*3/uLLow1.8-7.7The [facility] Physician GroupComment on above:Performed By: #### CBC #### [place] [address] USANeutrophils/100 WBC (Bld)55.0 %Normal.The [facility] Physician GroupComment on above:Performed By: #### CBC #### [place] [address] USANRBC%0.2 /100{WBC}Normal0-0.5The [facility] Comment on above:Performed By: #### CBC #### [place] [address] USAPlatelet mean volume (Bld) [Entitic vol]7.3 fLNormal 6.6-10.1The [facility] Physician GroupComment on above:Performed By: #### CBC #### [place] [address] USAPlatelets (Bld) [#/Vol]216 10*3/vCBbvcuf045-312Njn [facility] Physician GroupComment on above:Performed By: #### CBC #### [place] [address] USARBC (Bld) [#/Vol]3.58 10*6/uLLow3.90-5.60The [facility] Physician GroupComment on above:Performed By: #### CBC #### [place] [address] USAWBC (Bld) [#/Vol]2.8 10*3/uLLow4.1-10.5The [facility] Physician GroupComment on above:Performed By: #### CBC #### [place] [address] USAWhite Blood Count2.8 [CFU]/mLLow4.1-10.5The [facility] Physician GroupComment on above:Performed By: #### CBC #### [place] [address] USAECG 12 lead ECGon 43-61-3328QSS [address] [facility] [place] [address] [place] [address] Electrocardiograph Report Signed Patient: Tristin Powell MR#: [id number] : 1940 Acct:[id number] Age/Sex: 85 / M ADM Date: 05/02/25 Loc: Room: [address] [place] [address] Type: ADM INOo Attending Dr: Adiel Mccollum [...] are now present Confirmed by Eliezer Villa ([id number]) on 05/04/2025 8:06:25 AM Referred By: Electronically Signed By: Eliezer Villa Transcribed By: MUS Signed By Eliezer Villa MD 05/04/[address] [place] [address] Physician [facility] WesleyLipid Panelon 05-03-2025 Cholesterol [Mass/Vol]136 mg/wSSqm133-524Uvw [facility] Physician [facility] WesleyComment on above:Order Comment: FASTING YResult Comment: Chol less than 200 mg/dl low risk Chol 201-239 mg/dl borderline risk Chol 240 mg/dl and greater high riskPerformed By: #### CBC #### [facility] [address] [place] [address] USACholesterol in HDL [Mass/Vol]56 mg/pKPbcmao62-86Mnq [facility] Physician [facility] WesleyComment on above:Order Comment: FASTING YResult Comment: HDL CHOL ATP-III CLASSIFICATION Cardiovascular Risk HDL > or equal to 60 mg/dL LOW HDL < 40 mg/dL HIGHPerformed By: #### CBC #### [facility] [address] [place] [address] USACholesterol.total/Cholesterol in HDL [Mass ratio]2.4 {ratio}Normal<5.0The [facility] Physician [facility] WesleyComment on above:Order Comment: FASTING YResult Comment: PERFORMED BY: [address] [address] [address] PATHOLOGIST ELECTRICAL SYSTEMS DESIGN ENGINEER MAXIM HERNANDEZ M.D.Performed By: #### CBC #### [place] [id number] USALDL Cholesterol,Kfsbhopbmg52 mg/dLNormal0-100[facility] Physician GroupComment on above:Order Comment: FASTING YResult Comment: LDL ATP III CLASSIFICATION LDL less than 100 mg/dL Optimal LDL 100-129 mg/dL Near or above optimal LDL 130-159 mg/dL Borderline high LDL 160-189 mg/dL High LDL greater than 189 mg/dL Very highPerformed By: #### CBC #### [place] [id number] USATriglyceride w/Azfxut70 mg/dLNormal0-149The [facility] Physician GroupComment on above:Order Comment: FASTING YResult Comment: TRIG ATP III CLASSIFICATION TRIG less than 150 mg/dL Normal TRIG 150-199 mg/dL Borderline high TRIG 200-500 mg/dL High TRIG greater than 500 mg/dL Very high Standard traceable to the Center for Disease Conrtrol and Prevention (CDC) test method.Performed By: #### CBC #### [place] [address] USAVLDL EYAIWMBLWST84 mg/dLNormalThMadison Memorial Hospital Physician GroupComment on above:Order Comment: FASTING YPerformed By: #### CBC #### [place] [address] USATroponin I High Sensitivityon 00-40-1886Qtjgptss I High Rvtbkoccqgh92Afka9-23Qez [facility] Physician GroupComment on above:Result Comment: The Troponin units of report have been changed to meet the Chest Pain Accreditation requirement, element EC5.M1l2. Troponin units are changed from pg/ml to ng/L. Also, the decimal is removed and results are in whole numbers. PERFORMED BY: [place] [address] PATHOLOGIST ELECTRICAL SYSTEMS DESIGN ENGINEER MAXIM HERNANDEZ M.D.Performed By: #### BMP, CBC #### [place] [address] USATroponin I High Jxysrkzujrs95Sco scale high0-20The [facility] Physician GroupComment on above:Order [...] results are in whole numbers. PERFORMED BY: [place] [address] PATHOLOGIST ELECTRICAL SYSTEMS DESIGN ENGINEER MAXIM HERNANDEZ M.D.Performed By: #### BMP, CBC #### [place] [address] USATroponin I High Hmpvqatdmpf68Ebt scale high0-20The [facility] Physician GroupComment on above:Result Comment: Critical Result : Called to and read back by: ERICA KIMBLE at: 05/03/2025 01:16:26 by:[id number] The Troponin units of report have been changed to meet the Chest Pain Accreditation requirement, element EC5.M1l2. Troponin units are changed from pg/ml to ng/L. Also, the decimal is removed and results are in whole numbers. PERFORMED BY: [place] [address] PATHOLOGIST ELECTRICAL SYSTEMS DESIGN ENGINEER MAXIM HERNANDEZ M.D.Performed By: #### CBC #### [place] [address] USABNP ser/plasOrdered By: uMna Greene on 05-02-2025 Natriuretic peptide B (Bld) [Mass/Vol]222.0 pg/mLOhio Valley Medical Center[address] [place], [place] [address]Comment on above:Result Comment: PERFORMED BY: [place] [address] PATHOLOGIST ELECTRICAL SYSTEMS DESIGN ENGINEER MAXIM HERNANDEZ M.D.Performed By: #### BMP, CBC #### [place] [id number] USABasic Metabolic Panelon 79-49-0457Wfkgwqltkt Clr Calc Gfpxobuw84.92NormCommunity Hospital Physician [facility] Health WesleyComment on above:Result Comment: PERFORMED BY: [address] [place] [address] PATHOLOGIST ELECTRICAL SYSTEMS DESIGN ENGINEER MAXIM HERNANDEZ M.D.Performed By: #### BMP, CBC #### [place] [id number] USAGFR/1.73 sq M.predicted MDRD (S/P/Bld) [Vol rate/Area] mL/min/{1.73_m2}NormalThe [facility] Physician GroupComment on above:Performed By: #### BMP, CBC #### [place] [address] USABasophils [#/volume] in Blood by Automated countOrdered By: Muna Greene on 94-59-9142Gmsskbuqz (Bld) [#/Vol]0.0 10*3/uLNormal0.0-0.2 [facility] HospitalComment on above:Result Comment: PERFORMED BY: [place] [address] PATHOLOGIST ELECTRICAL SYSTEMS DESIGN ENGINEER MAXIM HERNANDEZ M.D.Performed By: #### BMP, CBC #### [address] [address] USABasophils/100 leukocytes in Blood by Automated count Ordered By: Muna Greene on 77-43-9886Ynfiufjgi/100 WBC (Bld)0.2 %Normal. [facility]'S HospitalComment on above:Performed By: #### BMP, CBC #### [place] [id number] USABioFire Not Detectedon 38-31-2876IccEmwm Not DetectedNot detectedNormalNot DetecteThe [facility] Physician GroupComment on above:Order Comment: Faxed Results to [facility] [phone] at 1527 on 05/09/25Result Comment: This is a duplicate RP2.1 COVID (PCR) result to be used for statistical tracking purpose only. PERFORMED BY: [place] [address] PATHOLOGIST ELECTRICAL SYSTEMS DESIGN ENGINEER MAXIM HERNANDEZ M.D.Performed By: #### CBC #### [facility] [address] [place] [address] USACalcium [Mass/volume] in Serum or PlasmaOrdered By: Muna Ramona on 86-74-3458Fwdnita [Mass/Vol]9.7 mg/dLNormal8.6-10.3FToledo HospitalComment on above:Performed By: #### BMP, CBC #### [place] [address] USACarbon dioxide, total [Moles/volume] in Serum or Plasma Ordered By: Muna Greene on 43-58-4834OG7 [Moles/Vol]22.1 mmol/HWbmqzn84.0-31.0 [facility]S HospitalComment on above:Performed By: #### BMP, CBC #### [place] [address] USAChloride [Moles/volume] in Serum or PlasmaOrdered By: Muna Greene on 97-40-7868Uettiuso [Moles/Vol]105 mmol/EFzoppd34-552MdphuttzgAkron Children'S HospitalComment on above:Performed By: #### BMP, CBC #### [place] [address] USAComplete Blood Count Auto Diffon 85-37-9080Jtcz Corpuscular HGB Conc34.6 g/nOSdcfmo38.5-35.6The [facility] Physician GroupComment on above:Performed By: #### BMP, CBC #### [place] [address] USAMonocytes/100 WBC (Bld)19.32 %Normal0.00-20.00The [facility] Physician GroupComment on above:Performed By: #### BMP, CBC #### [place] [address] USANRBC%0.0 /100{WBC}Normal0-0.5The [facility] Physician Group Comment on above:Performed By: #### BMP, CBC #### [place] [address] USAWhite Blood Count2.8 [CFU]/mLLow4.1-10.5The [facility] Physician GroupComment on above:Performed By: #### BMP, CBC #### [facility] [address] [place] [id number] USACreatinine [Mass/volume] in Serum or PlasmaOrdered By: Muna Greene on 11-48-1709Allvwghxyc [Mass/Vol]0.88 mg/dLNormal0.70-1.30 [facility]S HospitalComment on above:Performed By: #### BMP, CBC #### [facility] [address] [place] [address] USAECG 12 lead ECGon 78-05-8559HME [address] [facility] Main [place] [address] [place] [address] Electrocardiograph Report Signed Patient: Tristin Powell MR#: [id number] : 1940 Acct:[id number] Age/Sex: 85 / M ADM Date: 05/02/25 Loc: Room: [address] [place] [address] Type: ADM INOo Attending Dr: Adiel Mccollum [...] previous ECGs available Confirmed by Kaylie Gifford ([id number]) on 05/03/2025 1:49:52 AM Referred By: Electronically Signed By: Kaylie Gifford Transcribed By: MUS Signed By Kaylie Gifford DO 05/03 0149NoCommunity Health Physician GroupEosinophils [#/volume] in Blood by Automated countOrdered By: Muna Greene on 65-09-0602Cpjvdvqkuxx (Bld) [#/Vol] 0.0 10*3/uLNormal0.0-0.45[facility]'S HospitalComment on above: Performed By: #### BMP, CBC #### [place] [address] USAEosinophils/100 leukocytes in Blood by Automated count Ordered By: Muna Greene on 35-86-0188Miitnjoccgy/100 WBC (Bld)0.1 %Normal. [facility]'S HospitalComment on above:Performed By: #### BMP, CBC #### [place] [address] USAErythrocyte distribution width [Ratio] by Automated count Ordered By: Muna Greene on 50-71-7976Ljplfcypcsf distribution width (RBC) [Ratio]15.9 %High12.0-14.8[facility]'S HospitalComment on above: Performed By: #### BMP, CBC #### [place] [address] USAErythrocytes [#/volume] in Blood by Automated countOrdered By: Muna Greene on 16-58-6637OKP (Bld) [#/Vol]3.65 10*6/uLLow3.90-5.60 [facility]S HospitalComment on above:Performed By: #### BMP, CBC #### [place] [address] USAFerritinon 87-73-4275Bwiemkkx [Mass/Vol]211.0 ng/mLNormal 23.9-336.2The [facility] Physician GroupComment on above:Performed By: #### FOL, PT, CBC, BMP, HS TROP, BNP, B12, TIBC, FE, MARI ####[facility] [address] [place] [address] USAFolateon 95-09-3204Azadnp56.2 ng/mL Normal>5.9The [facility] Physician GroupComment on above:Result Comment: Folate reference range: >5.9 ng/ml The WHO technical consultation on folate and vitamin b12 deficiencies has determined that folate concentrations less than 4 ng/ml are considered deficient. PERFORMED BY: [place] [address] PATHOLOGIST ELECTRICAL SYSTEMS DESIGN ENGINEER MAXIM HERNANDEZ M.D.Performed By: #### FOL, PT, CBC, BMP, HS TROP, BNP, B12, TIBC, FE, MARI ####[facility] [address] [place] [address] USAGlomerular filtration rate [Volume Rate/Area] in Serum, Plasma or Blood by CreatinineOrdered By: Muna Greene on 83-86-1495Ulpvtijzwp filtration rate [Volume Rate/Area] in Serum, Plasma or Blood by Creatinine> 60.0 mL/MinAkron Children'S HospitalGlucose [Mass/volume] in Serum or PlasmaOrdered By: Muna Greene on 88-93-3879Cyfvxqm [Mass/Vol]164 mg/gPOiao20-291ShemseeeeAkron Children'S HospitalComment on above:ADA recommended reference rangeRandom Glucose [...] reference rangePerformed By: #### BMP, CBC #### [facility] [address] [place] [id number] USAHematocrit [Volume Fraction] of Blood by Automated count Ordered By: Muna Greene on 18-86-5778Qdtauwudov (Bld) [Volume fraction]34.1 % Low38.8-50.0[facility]'S HospitalComment on above:Performed By: #### BMP, CBC #### [facility] [address] [place] [address] USAHemoglobin [Mass/volume] in BloodOrdered By: Muna Greene on 11-13-1406Jxorwtqnzy (Bld) [Mass/Vol]11.8 g/dLLow13.0-17.0[facility]'S HospitalCommymichigan medical center saginaw on above:Performed By: #### BMP, CBC #### [facility] [address] [place] [address] USAINR in Platelet poor plasma by Coagulation assayOrdered By: Muna Greene on 77-65-8923ELT Coag (PPP) [Relative time]1.2 {INR}Normal [facility]'S HospitalComment on above:INR Therapeutic Range A) Pre- [...] heart valves: 3 - 4.5 PERFORMED BY: [place] [address] PATHOLOGIST ELECTRICAL SYSTEMS DESIGN ENGINEER MAXIM HERNANDEZ M.D.Performed By: #### BMP, CBC #### [place] [address] USAIronon 36-30-9694Gvvj [Mass/Vol]21 ug/rSZge81-501Wrs [facility] Physician GroupComment on above:Performed By: #### BMP, CBC #### [place] [address] USALeukocytes [#/volume] corrected for nucleated erythrocytes in Blood by Automated counOrdered By: Muna Greene on 57-43-7086SQD corrected for nucl RBC Auto (Bld) [#/Vol]2.8 10*3/uLLow4.1-10.5FToledo HospitalLeukocytes [#/volume] in Blood by Automated countOrdered By: Muna Greene on 03-31-6339MWW (Bld) [#/Vol]2.8 10*3/uLLow4.1-10.5FToledo HospitalComment on above:Performed By: #### BMP, CBC #### [facility] [address] [place] [address] USALymphocytes [#/volume] in Blood by Automated countOrdered By: Muna Greene on 29-76-4619Axavxgugqcr (Bld) [#/Vol]0.3 10*3/uLLow1.00-4.8 [facility]S HospitalComment on above:Performed By: #### BMP, CBC #### [facility] [address] [place] [address] USALymphocytes/100 leukocytes in Blood by Automated count Ordered By: Muna Greene on 01-28-1213Udzxvaqlfbk/100 WBC (Bld)9.8 %Normal. [facility]'S HospitalComment on above:Performed By: #### BMP, CBC #### [facility] [address] [place] [id number] USAMCH [Entitic mass] by Automated countOrdered By: Muna Greene on 40-58-6550PGG (RBC) [Entitic mass]32.3 poEinloq30.5-35.2FToledo HospitalComment on above:Performed By: #### BMP, CBC #### [facility] [address] [place] [address] USAMCHC Auto (RBC) [Mass/Vol]Ordered By: Muna Greene on 08-98-4833TPWC (RBC) [Mass/Vol]34.6 g/dL32.5-35.6FToledo HospitalMCV [Entitic volume] by Automated countOrdered By: Muna Greene on 55-85-3820KHE (RBC) [Entitic vol]93.4 cTHgbkkw68.5-101[facility]'S HospitalComment on above:Performed By: #### BMP, CBC #### [facility] [address] [place] [address] USAMonocyte distribution width [Entitic volume] in Blood by AutomatedOrdered By: Muna Greene on 21-59-4022Nkozgkib distribution width Auto (Bld) [Entitic vol]19.32 %0.00-20.00[facility]'S HospitalMonocytes [#/volume] in Blood by Automated countOrdered By: Muna Greene on 05-02-2025 Monocytes (Bld) [#/Vol]0.1 10*3/uLNormal0.0-0.8[facility] Comment on above:Performed By: #### BMP, CBC #### [facility] [address] [place] [address] USAMonocytes/100 leukocytes in Blood by Automated count Ordered By: Muna Greene on 49-97-6659Ncvocjtpq/100 WBC (Bld)5.1 %Normal. [facility]'S HospitalComment on above:Performed By: #### BMP, CBC #### [facility] [address] [place] [address] USANeutrophils [#/volume] in Blood by Automated countOrdered By: Muna Greene on 32-36-4185Yerbcmbubki (Bld) [#/Vol]2.3 10*3/uLNormal1.8-7.7 [facility]S HospitalComment on above:Performed By: #### BMP, CBC #### [facility] [address] [place] [address] USANeutrophils/100 leukocytes in Blood by Automated count Ordered By: Muna Greene on 16-62-6266Miatdzaxues/100 WBC (Bld)84.8 %Normal. [facility]'S HospitalComment on above:Performed By: #### BMP, CBC #### [facility] [address] [place] [address] USANo Panel InformationOrdered By: Muna Greene on 05-02-2025 Pharmacy Creatinine Clearance (Chem79.92[facility] Nucleated erythrocytes [Presence] in Blood by Automated countOrdered By: Muna Greene on 76-78-5206Tjxmhnzec RBC Auto Ql (Bld)0.0 /100{WBC}0-0.5FToledo HospitalPlatelet mean volume [Entitic volume] in Blood by Automated countOrdered By: Muna Greene on 46-47-2076Tljbofuq mean volume (Bld) [Entitic vol]7.2 fLNormal6.6-10.1FToledo HospitalComment on above:Performed By: #### BMP, CBC #### [facility] [address] [place] [address] USAPlatelets [#/volume] in Blood by Automated countOrdered By: Muna Greene on 62-16-9168Asrkrkjcc (Bld) [#/Vol]219 10*3/hVHbhfjt689-598 [facility]S HospitalComment on above:Performed By: #### BMP, CBC #### [facility] [address] [place] [address] USAPotassium [Moles/volume] in Serum or PlasmaOrdered By: Muna Greene on 44-67-6620Lmiqdmtiu [Moles/Vol]4.9 mmol/LNormal3.5-5.1FToledo HospitalComment on above:Performed By: #### BMP, CBC #### [facility] [address] [place] [address] USAProthrombin time (PT)Ordered By: Muna Greene on 24-94-3455ID Coag (PPP) [Time]14.1 sHigh9.0-12.9[facility]'S HospitalComment on above:A hematocrit value greater than 55% may lead to inaccurate results in coagulation testing. Patientshaving hematocrit values >55% require a special collection tube for coagulation studies. Please contact the laboratory at [phone] for redraw instructions.Result Comment: A hematocrit value greater than 55% may lead to inaccurate results in coagulation testing. Patients having hematocrit values >55% require a special collection tube for coagulation studies. Please contact the laboratory at [phone] for redraw instructions.Performed By: #### BMP, CBC #### [facility] [address] [place] [address] USARespiratory (Upper) Panel, PCRon 75-77-5322Webhugcdukl (Upper) Panel, PCRFaxed Results to [facility] [phone] at 1525 on 05/09/25 Adenovirus Not detected [...] Influenza A H3 Blank Space PERFORMED BY: [place] [address] PATHOLOGIST ELECTRICAL SYSTEMS DESIGN ENGINEER MAXIM HERNANDEZ M.D.NormalThe [facility] Physician GroupComment on above: Performed By: #### CBC #### [place] [id number] USAReticulocyte Counton 32-50-1290Ehorecjyxlfq Number0.046 10*6/uLNormal0.024-0.084The [facility] Physician GroupComment on above:Order Comment: Comment Add-onResult Comment: PERFORMED BY: [place] [address] PATHOLOGIST ELECTRICAL SYSTEMS DESIGN ENGINEER MAXIM HERNANDEZ M.D.Performed By: #### BMP, CBC #### [place] [id number] USAReticulocyte Percent1.2 %Normal0.5-1.5The [facility] Physician GroupComment on above:Order Comment: Comment Add-onPerformed By: #### BMP, CBC #### [place] [id number] USASerum or plasma anion gap determinationOrdered By: Muna Ramona on 84-07-9484Czrnh gap [Moles/Vol]13.8 mmol/LNormal6.0-15.0[facility]'S HospitalComment on above:Performed By: #### BMP, CBC #### [place] [address] USASodium [Moles/volume] in Serum or PlasmaOrdered By: Muna Ramona on 83-97-6409Tfmwpe [Moles/Vol]136 mmol/MTgqjvl499-428RgkouayncAkron Children'S HospitalComment on above:Performed By: #### BMP, CBC #### [place] [address] USATotal Iron Binding Capacityon 45-86-4363Bdbdl Iron Binding Xcoeqxup367 ug/cIEntvmb278-256Eny [facility] Physician GroupComment on above: Performed By: #### BMP, CBC #### [place] [address] USATransferrin [Mass/Vol]192 mg/aELgu705-690Axi [facility] Physician GroupComment on above:Performed By: #### BMP, CBC #### [place] [address] USATroponin I High Sensitivityon 85-84-5945Mffhrzie I High Xbwwelgqucz58Txab5-71Xsw [facility] Physician GroupComment on above:Result Comment: The Troponin units of report have been changed to meet the Chest Pain Accreditation requirement, element EC5.M1l2. Troponin units are changed from pg/ml to ng/L. Also, the decimal is removed and results are in whole numbers. PERFORMED BY: [place] [address] PATHOLOGIST ELECTRICAL SYSTEMS DESIGN ENGINEER MAXIM HERNANDEZ M.D.Performed By: #### MRSA - MSSA PCR #### [place] [address] USATroponin I High Jzkxhyozgsq36Izrz5-84Tlk [facility] Physician GroupComment on above:Result Comment: The Troponin units of report have been changed to meet the Chest Pain Accreditation requirement, element EC5.M1l2. Troponin units are changed from pg/ml to ng/L. Also, the decimal is removed and results are in whole numbers. PERFORMED BY: [place] [address] PATHOLOGIST ELECTRICAL SYSTEMS DESIGN ENGINEER MAXIM HERNANDEZ M.D.Performed By: #### CBC #### [place] [address] USATroponin I High Wzksyinlyln40Wtei2-58Y[facility] Physician GroupComment on above:Result Comment: The Troponin units of report have been changed to meet the Chest Pain Accreditation requirement, element EC5.M1l2. Troponin units are changed from pg/ml to ng/L. Also, the decimal is removed and results are in whole numbers. PERFORMED BY: [place] [address] PATHOLOGIST ELECTRICAL SYSTEMS DESIGN ENGINEER MAXIM HERNANDEZ M.D.Performed By: #### BMP, CBC #### [place] [address] USATroponin I.cardiac [Mass/volume] in Serum or Plasma by Detection limit <= 0.01 ng/mLOrdered By: Mell Hou on 28-26-0439Wumvbsvh I.cardiac DL <= 0.01 ng/mL [Mass/Vol]46 ng/LHigh0-20[facility]S HospitalComment on above:The Troponin units of report have been changed to meet the Chest Pain Accreditation requirement, element EC5.M1l2. Troponin units are changed from pg/ml to ng/L. Also, the decimal is removed and results are in whole numbers.Urea nitrogen [Mass/volume] in Serum or PlasmaOrdered By: Muna Greene on 76-73-6294Wgmm nitrogen [Mass/Vol]17 mg/dLNormal7-25[facility]S HospitalComment on above:Performed By: #### BMP, CBC #### [place] [address] USAVitamin B12on 05-59-1670Taozpyrtg (Vitamin B12) [Mass/Vol] 269 pg/nMUadxen262-052Nix [facility] Physician GroupComment on above:Performed By: #### FOL, PT, CBC, BMP, HS TROP, BNP, B12, TIBC, FE, MARI ####[facility] [address] [place] [id number] USAX-ray reportOrdered By: Cristian Rodriguez on 45-58-9771Fsesp reportMOUNT ST. MARY [place] [address] XRay Report Signed Patient: Tristin Powell MR#: [id number] : 1940 Acct:[id number] Age/Sex: 85 / M ADM Date: 5 Loc: ER Room: Type: [facility] ER Attending Dr: Copies to: Muna Greene [...] Rodriguez M.D. 05/02/2025 4:35 PM Dictation Location: [place] [address] Transcribed By: [facility] 05/02/25 1635 Dictated By: Cristian Rodriguez DO 05/02/25 1633 Signed By: 05/02/25 1635 [facility]S HospitalXR chest 2V*on 64-20-1987BC chest 2V*[facility] Main [place] [address] XRay Report Signed Patient: Tristin Powell MR#: [id number] : 1940 Acct:[id number] Age/Sex: 85 / M ADM Date: 05/02/25 Loc: ER Room: Type: [facility] ER Attending Dr: Copies to: Muna Greene [...] Dictation Location: [facility] Transcribed By: [facility] 05/02/25 1635 Dictated By: Cristian Rodriguez DO 05/02/25 1633 Signed By: 05/02/25 1635[facility] Physician GroupSANTA ROSA MEMORIAL [facility] BASIC METABOLIC PANELon 56-41-5996Zytaw gap [Moles/Vol]13.9 mmol/LNOMS HealthcareCalcium [Mass/Vol]9.3 mg/dL8.5 - 10.1 mg/dLNOMS HealthcareChloride [Moles/Vol]106 mmol/L98 - 107 mmol/LNOMS HealthcareCO2 [Moles/Vol]24.9 mmol/L21.0 - 32.0 mmol/LNOMS Healthcare Creatinine [Mass/Vol]1.04 mg/dL0.70 - 1.30 mg/dLNOMS HealthcareGFR/1.73 sq M.predicted CKD-EPI (S/P/Bld) [Vol rate/Area]>60>=60 mL/min/1.73m 2NOMS HealthcareGlucose [Mass/Vol]103 mg/dL74 - 106 mg/dLNOMS HealthcarePotassium [Moles/Vol]4.8 mmol/L3.5 - 5.1 mmol/LNOMS HealthcareSodium [Moles/Vol]140 mmol/L 136 - 145 mmol/LNOMS HealthcareTBH EGFR-NON AF BARBADIAN>60>=60 mL/min/1.73m 2 NOMS HealthcareUrea nitrogen [Mass/Vol]13 mg/dL7.0 - 18.0 mg/dLGolden Valley Memorial Hospital Urea nitrogen/Creatinine [Mass ratio]12.5 mg/mgNOMO HealthcareCLINISYNBOSTON REGIONAL MED[facility]ENTER HealthcareALL C REACTIVE PROTEINon 04-30-2025 REACTIVE PROTEIN3.08 mg/dLHigh NINF - 0.50 mg/dLGolden Valley Memorial HospitalInterpretation and review of laboratory results AbnormalNOMO HealthcareCLINISYNCNOMS HealthcareUS ANKLE/BRACHIAL INDICES EXTREMITY LIMITEDon 07-52-5006HX ANKLE/BRACHIAL INDICES EXTREMITY LIMITEDPatient Info Name: Tristin Powell Age: 85 years : 1940 Gender: Male Exam Date: 04/23/2025 12:53 PM Patient Status: OUTPATIENT Site Location[facility] Indications I73.9 - Peripheral vascular disease, unspecified 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 Assembler Body: Ying Fiore RDCS, RVT Staff Ordering Physician: [...] Segmental BP RIGHT Brachial A mmH RIGHT STAFF APPRAISER mmH RIGHT STAFF APPRAISER Index: 0.96 RIGHT DPA mmH RIGHT DPA Index: 0.92 RIGHT YAMILE Index: 0.96 LEFT Brachial A mmH LEFT STAFF APPRAISER Index: 0.48 LEFT STAFF APPRAISER mmH LEFT DPA Index: 0.61 LEFT DPA mmH LEFT YAMILE Index: 0.61 Doppler RIGHT STAFF APPRAISER Waveform: Multiphasic RIGHT DPA Waveform: Multiphasic LEFT STAFF APPRAISER Waveform: Monophasic LEFT DPA Waveform: Monophasic , PVR RIGHT Ankle Grade: Abnormal RIGHT Transmetarsal Grade: Abnormal LEFT Ankle Grade: Abnormal Report Signatures Finalized by Nemo Conner MD, PHD, RVT on 04/23/2025 02:41 PMNormal [facility] HamiltonUS DUPLEX LE BYPASS GRAFT COMPL BILATon 76-77-9010SS DUPLEX LE BYPASS GRAFT COMPL BILATPatient Info Name: Tristin Powell Age: 85 years : 1940 Gender: Male Exam Date: 04/23/2025 12:53 PM Patient Status: OP SERIES Site Location: [facility] Indications I73.9 - Peripheral vascular disease, unspecified 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 Assembler Body: Jigna Vera RDMS, RVT Staff Ordering Physician: [...] Artery Segment: Gabriela LEFT Inflow Artery Segment: HOUSETRAILER SERVICER LEFT Inflow Artery PSV: 126 LEFT Inflow [...] Leonard MD, RPVI, RVT on 04/23/2025 02:41 PMNormalRiverside South Texas Spine & Surgical HospitalXR FOOT RT MIN 3Von 32-91-4231[address] [address] XRay Report Signed Patient: TRISTIN POWELL MR#: [id number] : 1940 Acct:[id number] Age/Sex: 85 / M ADM Date: 04/15/25 Loc: RAD Attending Dr: Savanna Feliz D.P.M. Ordering Physician: Savanna Feliz D.P.M. Date of Service: 04/15/25 Procedure(s): XR foot RT min 3V Accession Number(s): [id number] cc: FLASH LOVELACE ; Savanna Feliz D.P.M. [place] [address] Patient Name: TRISTIN POWELL MRN: [id number] date: 1940 Sex: M Assigned Patient Location: [facility] Current Patient Location: Accession/Order Number: [id number] Exam Date: 04/16/2025 12:46 Report Date: 04/16/2025 [...] Rodriguez M.D. 04/16/2025 12:49 PM Dictation Location: [place] [address] Electronically authenticated by: [id number] Y Date: 04/16/2025 12:49 Dictated By: Cristian Rodriguez D.O. Signed By: 04/16/25 1252 DD/ 1249 TD/TT: Metal Pourer:HARINIHRadiology, Radiologist, - 04/16/2025 [place] [address] XRay Report Signed Patient: TRISTIN POWELL MR#: [id number] : 1940 Acct:[id number] Age/Sex: 85 / M ADM Date: 04/15/25 Loc: RAD Attending Dr: Savanna Feliz D.P.M. Ordering Physician: Savanna Feliz D.P.M. Date of Service: 04/15/25 Procedure(s): XR foot RT min 3V Accession Number(s): [id number] cc: FLASH LOVELACE ; Savanna Feliz D.P.M. [place] [address] Patient Name: TRISTIN POWELL MRN: [id number] date: 1940 Sex: M Assigned Patient Location: [facility] Current Patient Location: Accession/Order Number: [id number] Exam Date: 04/16/2025 12:46 Report Date: 04/16/2025 [...] Rodriguez M.D. 04/16/2025 12:49 PM Dictation Location: [place] [address] Electronically authenticated by: [id number] Y Date: 04/16/2025 12:49 Dictated By: Cristian Rodriguez D.O. Signed By: 04/16/25 1252 DD/ 1249 TD/TT: Metal Pourer: JAE HealthcareRadiology Study observation (narrative)[facility] HealthcareXR FOOT RT MIN 3VOrdered By: Radiologist Radiology on 66-13-4824KMZZGolden Valley Memorial Hospital Work Phone: all CBC WITH AUTO DIFFon 08-21-0695XTRJEBKCP ABSOLUTE [id number] HealthcareBasophils/100 WBC (Bld)0.6 %0.2 - 2.0 %[facility] Healthcare Eosinophils/100 WBC (Bld)5.9 %0.9 - 7.0 %[facility] HospitalErythrocyte distribution width (RBC) [Ratio]15.2 %High11.0 - 15.0 %[facility] HealthcareHematocrit (Bld) [Volume fraction]35.1 %Low42.0 - 54.0 %[facility] HospitalHemoglobin (Bld) [Mass/Vol]11.8 g/dLLow14.0 - 18.0 g/dLGolden Valley Memorial HospitalIMMATURE GRANULOCYTES ABS AUTO0.02NOMS HealthcareImmature granulocytes/100 WBC (Bld)0.6 %High0.0 - 0.5 % [facility] HealthcareInterpretation and review of laboratory resultsAbnormalNOSt. Joseph Medical CenterLYMPHOCYTES ABSOLUTE AUTO0.8LowNOMS HealthcareLymphocytes/100 WBC (Bld)24.1 %20.5 - 60.0 %[facility] HospitalH (RBC) [Entitic mass]31.2 pg25.9 - 34.0 pgBarnes-Jewish HospitalHC (RBC) [Mass/Vol]33.6 g/dL29.9 - 35.2 g/dLGolden Valley Memorial HospitalMCV (RBC) [Entitic vol]92.9 fL80.0 - 94.0 fLLDS HOSPITAL HealthcareMONOCYTES ABSOLUTE AUTO0.6NOMO HealthcareMonocytes/100 WBC (Bld)18.9 %High1.7 - 12.0 %NOM HealthcareNEUTROPHILS ABSOLUTE AUTO1.6NOMS HealthcareNeutrophils/100 WBC (Bld) 49.9 %43.0 - 75.0 %[facility] HospitalPlatelet mean volume (Bld) [Entitic vol]8.9 fL Low9.5 - 13.5 fLNOMS HealthcareTB EO #0.2NOMS HealthcareTBH [id number] HealthcareTB RBC3.78LowNOMS HealthcareTB WBC3.2LowNOMS HealthcareCLINISYNCNOMS HealthcareMR FOOT RIGHT WO IV CONTRASTon 09-00-8056XL FOOT RIGHT WO IV CONTRAST EXAM: MR [...] not excluded. ELECTRONICALLY SIGNED BY: Dom Ruiz, MckennamalNot AvailableHERPES SIMPLEX VIRUS 1on 28-54-3084MZJGNK SIMPLEX VIRUS 10NOMS HealthcareHERPES SIMPLEX VIRUS 1 Not detectedNOMS HealthcareHERPES SIMPLEX VIRUS 20NOMS HealthcareHERPES SIMPLEX VIRUS 2Not detectedNOParkland Health Center MONKEYPOX YJCHU9MRPAParkland Health Center MONKEYPOX VIRUSNot detectedNOMO HealthcareVARICELLA ZOSTER VIRUS (HUMAN HERPESVIRUS 3)0NOMS HealthcareVARICELLA ZOSTER VIRUS (HUMAN HERPESVIRUS 3)Not detectedNOMO HealthcareNOMO HealthcareBASIC METABOLIC PANELon 16-36-6943Zaiwv gap [Moles/Vol]14 mmol/RQbbygi77-23RqbnimidrMercy Health – The Jewish HospitalComment on above: Order Comment: [facility] has implemented the eGFR calculation approach that does not have a coefficient for race that conforms to the NKF-ASN Task Force Recommendations.Performed By: #### [id number] ####[facility] [address] [place] [address] Emmanuel Plata M.D. [id number] [Mass/Vol]9.4 mg/dLNormal8.4-10.2REast [facility] on above:Order Comment: [facility] has implemented the eGFR calculation approach that does not have a coefficient for race that conforms to the NKF-ASN Task Force Recommendations.Performed By: #### [id number] ####[place] [address] Emmanuel Plata M.D. [id number] [Moles/Vol] 108 mmol/YJwkcth00-667NnmtyzedyProtestant Hospital on above:Order Comment: [facility] has implemented the eGFR calculation approach that does not have a coefficient for race that conforms to the NKF-ASN Task Force Recommendations.Performed By: #### [id number] ####[place] [address] Emmanuel Plata M.D. [id number] [Mass/Vol]0.98 mg/dLNormal0.80-1.30 [facility] on above:Order Comment: [facility] has implemented the eGFR calculation approach that does not have a coefficient for race that conforms to the NKF-ASN Task Force Recommendations.Performed By: #### [id number] ####[place] [address] Emmanuel Plata M.D. [id number] mL/min/1.73 n1Asqtrc>=60RiProtestant Hospital on above:Order Comment: [facility] has implemented the eGFR calculation approach that does not have a coefficient for race that conforms to the NKF-ASN Task Force Recommendations.Result Comment: Estimated GFR was calculated using the 2020 CKD-EPI creatinine equation.Performed By: #### [id number] ####[place] [address] Emmanuel Plata M.D. [id number] [Mass/Vol]109 mg/nVKdxj21-89 [facility] HamiltonComment on above:Order Comment: [facility] has implemented the eGFR calculation approach that does not have a coefficient for race that conforms to the NKF-ASN Task Force Recommendations.Performed By: #### [id number] ####[facility] [address] [place] [address] Emmanuel Plata M.D. [id number] (Bld) [Moles/Vol]22 mmol/ZDoyswh60-48OlcxogqkwFulton County Health Center Comment on above:Order Comment: [facility] has implemented the eGFR calculation approach that does not have a coefficient for race that conforms to the NKF-ASN Task Force Recommendations.Performed By: #### [id number] ####[facility] [address] [place], [place] [address] Emmanuel Plata M.D. [id number] [Moles/Vol]4.0 mmol/L Normal3.5-5.1RSt. Charles HospitalComment on above:Order Comment: [facility] has implemented the eGFR calculation approach that does not have a coefficient for race that conforms to the NKF-ASN Task Force Recommendations.Result Comment: Slightly HemolyzedPerformed By: #### [id number] ####[facility] [address] [place] [address] Emmanuel Plata M.D. [id number] [Moles/Vol]140 mmol/LNormal 135-145RiFulton County Health CenterComment on above:Order Comment: [facility] has implemented the eGFR calculation approach that does not have a coefficient for race that conforms to the NKF-ASN Task Force Recommendations.Performed By: #### [id number] ####[facility] [address] [place] [address] Emmanuel Plata M.D. [id number] nitrogen [Mass/Vol]19 mg/dLNormal8-25RiFulton County Health Center Comment on above:Order Comment: [facility] has implemented the eGFR calculation approach that does not have a coefficient for race that conforms to the NKF-ASN Task Force Recommendations.Performed By: #### [id number] ####[facility] [address] [place] [address] Emmanuel Plata M.D. [id number] nitrogen/Creatinine [Mass ratio]19.4 mg/imLeaeif38.0-20.0[facility] Surgical HospitalComment on above: Order Comment: [facility] has implemented the eGFR calculation approach that does not have a coefficient for race that conforms to the NKF-ASN Task Force Recommendations.Performed By: #### [id number] ####[facility] [address] [place] [address] Emmanuel Plata M.D. [id number] metabolic 2000 panelOrdered By: Beka Aiken on 51-53-9179Bgzss gap [Moles/Vol]14 mmol/L10 - 20 mmol/LOhioHealth Calcium [Mass/Vol]9.4 mg/dL8.4 - 10.2 mg/dLOhioHealthChloride [Moles/Vol]108 mmol/L98 - 108 mmol/LOhioHealthCreatinine [Mass/Vol]0.98 mg/dL0.80 - 1.30 mg/dL [facility] HospitalGFR/1.73 sq M.predicted CKD-EPI (S/P/Bld) [Vol rate/Area]75- PINF [facility] HospitalComment on above:Estimated GFR was calculated using the 2020 CKD-EPI creatinine equation.Glucose [Mass/Vol]109 mg/hNHtkf26 - 99 mg/dLOhioHealthHCO3 [Moles/Vol]22 mmol/L21 - 32 mmol/LOhioHealthInterpretation and review of laboratory resultsAbnormalOhioHealthPotassium [Moles/Vol]4 mmol/L3.5 - 5.1 mmol/LOhioHealthComment on above:Slightly HemolyzedSodium [Moles/Vol]140 mmol/L 135 - 145 mmol/LOhioHealthUrea nitrogen [Mass/Vol]19 mg/dL8 - 25 mg/dLOhioHealth Urea nitrogen/Creatinine [Mass ratio]19.4 mg/mg10.0 - 20.0OhioOhioHealth [facility] has implemented the eGFR calculation approach that does not have a coefficient for race that conforms to the NKF-ASN Task Force Recommendations.[facility] 13-18-2463VYTB NRBC0.0 %NormalRiversBlanchard Valley Health System [facility] HospitalComment on above:Performed By: #### [id number] #### [facility] [address] [place] [address] Emmanuel Plata M.D. [id number] NRBC ABS COUNT0.00 K/mcLNormal0.00-0.00RiTrinity Health System Twin City Medical Center HospitalComment on above:Performed By: #### [id number] #### [facility] [address] [place] [address] Emmanuel Plata M.D. [id number] distribution width (RBC) [Ratio]13.7 %Byhusb02.6-14.8 [facility] HamiltonComment on above:Performed By: #### [id number] #### [facility] [address] [place] [address] Emmanuel Plata M.D. [id number] (Bld) [Volume fraction]30.0 %Low41.0-53.0RiTrinity Health System Twin City Medical Center HospitalComment on above:Performed By: #### [id number] #### [facility] [address] [place] [address] Emmanuel Plata M.D. [id number] (Bld) [Mass/Vol]10.5 g/dLLow13.5-17.5RiTrinity Health System Twin [facility] Center HospitalComment on above:Performed By: #### [id number] #### [facility] [address] [place] [address] Emmanuel Plata M.D. [id number] (RBC) [Entitic mass]33.2 mlDygogq96.0-34.0RiTrinity Health System Twin [facility] Center HospitalComment on above:Performed By: #### [id number] #### [facility] [address] [place] [address] Emmanuel Plata M.D. [id number] (RBC) [Entitic vol]94.9 oDTjyaqv44.0-100.0RiTrinity Health System [facility] HospitalComment on above:Performed By: #### [id number] #### [facility] [address] [place] [address] Emmanuel Plata M.D. [id number] CORPUSCULAR HEMOGLOBIN CONC35.0 g/sMLtvgjh48.0-37.0RiTrinity Health System [facility] Center HospitalComment on above:Performed By: #### [id number] #### [facility] [address] [place] [address] Emmanuel Plata M.D. [id number] mean volume (Bld) [Entitic vol]9.7 fLNormal9.4-12.4[facility]ucianist HospitalComment on above:Performed By: #### [id number] #### [facility] [address] [place], [place] [address] Emmanuel Plata M.D. [id number] (Bld) [#/Vol]213 10*3/gVFbavxp745-578Fdyzyafee Methodist HospitalComment on above:Performed By: #### 11338 #### [facility] [address] [place], [place] [address] Emmanuel Plata M.D. [id number] (Bld) [#/Vol]3.16 10*6/uLLow4.50-5.90RiTrinity Health System [facility] Hospital Comment on above:Performed By: #### 13298 #### [facility] [address] [place] [address] Emmanuel Plata M.D. [id number] (Bld) [#/Vol]4.33 10*3/uLLow4.50-11.00RiFulton County Health Center Comment on above:Performed By: #### [id number] #### [facility] [address] [place], [place] [address] Emmanuel Plata M.D. [id number] panel Auto (Bld)on 73-65-3610Mcxooseffuy distribution width (RBC) [Entitic vol]13.7 %11.6 - [...] 3.16 10*6/uLLowOhioHealthWBC (Bld) [#/Vol]4.33 10*3/uLLowOhioHealthOhioHealth MAGNESIUM LEVELon 01-74-1907Zrtvfunyg [Mass/Vol]2.1 mg/dLNormal1.6-2.4RSt. Charles HospitalComment on above:Performed By: #### 54529 #### [facility] [address] [place] [address] Emmanuel Plata M.D. [id number] 24-58-0334Zrqrcwkma [Mass/Vol]2.1 mg/dL1.6 - 2.4 mg/dL [facility] HospitalMagnesium [Mass/Vol]on 09-11-1991Jgicsoikxyforf and review of laboratory resultsNormalOhioHealthNo Panel Informationon 14-94-0411LmirVivnku BASIC METABOLIC PANELon 81-90-0382Bhxdu gap [Moles/Vol]14 mmol/XUnytfa43-34 [facility] HamiltonComment on above:Order Comment: [facility] has implemented the eGFR calculation approach that does not have a coefficient for race that conforms to the NKF-ASN Task Force Recommendations.Performed By: #### [id number] #### [facility] [address] [place] [address] Emmanuel Plata M.D. [id number] [Mass/Vol]8.5 mg/dLNormal8.4-10.2RSt. Charles Hospital Comment on above:Order Comment: [facility] has implemented the eGFR calculation approach that does not have a coefficient for race that conforms to the NKF-ASN Task Force Recommendations.Performed By: #### [id number] #### [facility] [address] [place] [address] Emmanuel Plata M.D. [id number] [Moles/Vol]107 mmol/VCjjoyi77-237WsgmxgkvvFulton County Health Center Comment on above:Order Comment: [facility] has implemented the eGFR calculation approach that does not have a coefficient for race that conforms to the NKF-ASN Task Force Recommendations.Performed By: #### [id number] #### [facility] [address] [place] [address] Emmanuel Plata M.D. [id number] [Mass/Vol]0.97 mg/dLNormal0.80-1.30RiFulton County Health CenterComment on above:Order Comment: [facility] has implemented the eGFR calculation approach that does not have a coefficient for race that conforms to the NKF-ASN Task Force Recommendations.Performed By: #### [id number] #### [facility] [address] [place] [address] Emmanuel Plata M.D. [id number] mL/min/1.73 y9Ldgajb>=60RiFulton County Health CenterComment on above:Order Comment: [facility] has implemented the eGFR calculation approach that does not have a coefficient for race that conforms to the NKF-ASN Task Force Recommendations.Result Comment: Estimated GFR was calculated using the 2020 CKD-EPI creatinine equation.Performed By: #### [id number] #### [facility] [address] [place] [address] Emmanuel Plata M.D. [id number] [Mass/Vol]97 mg/wZYzeupw05-13RfqbfiprwFulton County Health Center Comment on above:Order Comment: [facility] has implemented the eGFR calculation approach that does not have a coefficient for race that conforms to the NKF-ASN Task Force Recommendations.Performed By: #### 23481 #### [facility] [address] [place] [address] Emmanuel Plata M.D. [id number] (Bld) [Moles/Vol]22 mmol/NNwogdn45-49LimcldweeFulton County Health Center Comment on above:Order Comment: [facility] has implemented the eGFR calculation approach that does not have a coefficient for race that conforms to the NKF-ASN Task Force Recommendations.Performed By: #### [id number] #### [facility] [address] [place] [address] Emmanuel Plata M.D. [id number] [Moles/Vol]4.1 mmol/LNormal3.5-5.1RiversMercy Health – The Jewish HospitalComment on above:Order Comment: [facility] has implemented the eGFR calculation approach that does not have a coefficient for race that conforms to the NKF-ASN Task Force Recommendations.Performed By: #### 72300 #### [facility] [address] [place] [address] Emmanuel Plata M.D. [id number] [Moles/Vol]139 mmol/IYmkphs927-179QtqcfpiykFulton County Health Center Comment on above:Order Comment: [facility] has implemented the eGFR calculation approach that does not have a coefficient for race that conforms to the NKF-ASN Task Force Recommendations.Performed By: #### 70700 #### [facility] [address] [place] [address] Emmanuel Plata M.D. [id number] nitrogen [Mass/Vol]20 mg/dLNormal8-25RiFulton County Health Center Comment on above:Order Comment: [facility] has implemented the eGFR calculation approach that does not have a coefficient for race that conforms to the NKF-ASN Task Force Recommendations.Performed By: #### [id number] #### [facility] [address] [place], [place] [address] Emmanuel Plata M.D. [id number] nitrogen/Creatinine [Mass ratio]20.6 mg/qpResc73.0-20.0RiFulton County Health CenterComment on above:Order Comment: [facility] has implemented the eGFR calculation approach that does not have a coefficient for race that conforms to the NKF-ASN Task Force Recommendations.Performed By: #### 99124 #### [facility] [address] [place] [address] Emmanuel Plata M.D. [id number] metabolic 2000 panelon 14-48-6776Qrjfn gap [Moles/Vol]14 mmol/L 10 - 20 mmol/LOhioHealthCalcium [...] mmol/LOhioHealth Urea nitrogen [Mass/Vol]20 mg/dL8 - 25 mg/dLOkioHealthUrea nitrogen/Creatinine [Mass ratio]20.6 mg/mkFjez82.0 - 20.0OhioOhioHealth [facility] has implemented the eGFR calculation approach that does not have a coefficient for race that conforms to the NKF-ASN Task Force Recommendations.[facility] 32-59-0196YVXU NRBC0.0 %NormalRiTrinity Health System Twin City Medical Center HospitalComment on above: Performed By: #### [id number] #### [facility] [address] [place] [address] Emmanuel Plata M.D. [id number] NRBC ABS COUNT0.00 K/mcLNormal0.00-0.00RiFulton County Health CenterComment on above:Performed By: #### 88027 #### [facility] [address] [place], [place] [address] Emmanuel Plata M.D. [id number] distribution width (RBC) [Ratio]13.8 %Hniyoh46.6-14.8 [facility] HamiltonComment on above:Performed By: #### 57437 #### [facility] [address] [place] [address] Emmanuel Plata M.D. [id number] (Bld) [Volume fraction]29.1 %Low41.0-53.0RiTrinity Health System [facility] HospitalComment on above:Performed By: #### 51929 #### [facility] [address] [place] [address] Emmanuel Plata M.D. [id number] (Bld) [Mass/Vol]10.0 g/dLLow13.5-17.5RiTrinity Health System [facility] HospitalComment on above:Performed By: #### [id number] #### [facility] [address] [place] [address] Emmanuel Plata M.D. [id number] (RBC) [Entitic mass]33.3 wgNkyndn30.0-34.0RiTrinity Health System [facility] HospitalComment on above:Performed By: #### [id number] #### [facility] [address] [place] [address] Emmanuel Plata M.D. [id number] (RBC) [Entitic vol]97.0 hLRbkcdy12.0-100.0RiTrinity Health System [facility] HospitalComment on above:Performed By: #### 33754 #### [facility] [address] [place] [address] Emmanuel Plata M.D. [id number] CORPUSCULAR HEMOGLOBIN CONC34.4 g/uKChczpi67.0-37.0RiTrinity Health System Twin [facility] HospitalComment on above:Performed By: #### 09956 #### [facility] [address] [place] [address] Emmanuel Plata M.D. [id number] mean volume (Bld) [Entitic vol]9.8 fLNormal9.4-12.4R[facility]ucianist HospitalComment on above:Performed By: #### 93889 #### [facility] [address] [place] [address] Emmanuel Plata M.D. [id number] (Bld) [#/Vol]167 10*3/wYTksrmt912-234CqsjyntbyFulton County Health CenterComment on above:Performed By: #### 97470 #### [facility] [address] [place], [place] [address] Emmanuel Plata M.D. [id number] (Bld) [#/Vol]3.00 10*6/uLLow4.50-5.90RiFulton County Health Center Comment on above:Performed By: #### 38652 #### [facility] [address] [place] [address] Emmanuel Plata M.D. [id number] (Bld) [#/Vol]4.86 10*3/uLNormal4.50-11.00RiFulton County Health CenterComment on above:Performed By: #### 61048 #### [facility] [address] [place], [place] [address] Emmanuel Plata M.D. [id number] panel Auto (Bld)on 20-43-7218Ynmxftnolfh distribution width (RBC) [Entitic vol]13.8 %11.6 - 14.8 %OhioHealthHematocrit (Bld) [Volume fraction]29.1 %Low41.0 - 53.0 %OhioHealthHemoglobin (Bld) [Mass/Vol]10 g/dLLow13.5 - 17.5 g/dL New YorkHealthInterpretation and review of laboratory resultsAbnormalOhioHealthMCH (RBC) [Entitic mass]33.3 pg26.0 - 34.0 pgOhioHealthMCHC (RBC) [Mass/Vol]34.4 g/dL31.0 - 37.0 g/dLOhioHealthMCV (RBC) [Entitic vol]97 fL80.0 - 100.0 fL OhioHealthNucleated RBC (Bld) [#/Vol]0 10*3/uLOhioHealthNucleated RBC/100 WBC (Bld) [Ratio]0 %OhioHealthPlatelet mean volume (Bld) [Entitic vol]9.8 fL9.4 - 12.4 fLOhioHealthPlatelets (Bld) [#/Vol]167 10*3/uLOhioHealthRBC (Bld) [#/Vol]3 10*6/uLLowOhioHealthWBC (Bld) [#/Vol]4.86 10*3/uLOhioHealthOhioHealthMAGNESIUM LEVELon 42-83-7320Cxwpftmuo [Mass/Vol]2.2 mg/dLNormal1.6-2.4RSt. Charles HospitalComment on above:Performed By: #### [id number] #### [facility] [address] [place] [address] Emmanuel Plata M.D. [id number] 21-60-7454Xbodmpemx [Mass/Vol]2.2 mg/dL1.6 - 2.4 mg/dL OhioHealthMagnesium [Mass/Vol]on 79-91-8035Sruafxffslmpxn and review of laboratory resultsNormalOhioHealthNo Panel Informationon 16-37-8769HwvmSlgezdIZ ANKLE/BRACHIAL INDICES EXTREMITY LIMITEDon 67-66-6059XI ANKLE/BRACHIAL INDICES EXTREMITY LIMITEDPatient Info Name: Tristin Powell Age: 85 years : 1940 Gender: Male Exam Date: 03/20/2025 8:42 AM Patient Status: INPATIENT Site [facility]: [facility] Indications I73.9 - Peripheral vascular disease, unspecified Procedure Description 10981 Limited bilateral noninvasive physiologic studies of upper or lower extremity arteries with bidirectional Doppler/PVR waveform analysis at 1-2 levels. Assembler Body: Maggy Dempsey T Staff Ordering Physician: Beena [...] Segmental BP RIGHT Brachial A mmH RIGHT STAFF APPRAISER mmH RIGHT STAFF APPRAISER Index: 0.53 RIGHT DPA mmH RIGHT DPA Index: 0.57 RIGHT Digit mmH RIGHT YAMILE Index: 0.57 RIGHT TBI Index: 0.00 LEFT STAFF APPRAISER Index: 0.36 LEFT STAFF APPRAISER mmH LEFT DPA Index: 0.41 LEFT DPA mmH LEFT YAMILE Index: 0.41 Doppler RIGHT STAFF APPRAISER Waveform: Monophasic RIGHT DPA Waveform: Monophasic LEFT STAFF APPRAISER Waveform: Monophasic LEFT DPA Waveform: Monophasic , PVR RIGHT Ankle Grade: Abnormal RIGHT Transmetarsal Grade: Abnormal RIGHT Digit (PPG) Grade: Absent LEFT Ankle Grade: Abnormal Prior Interventions 03/17/2025 right femoral and tibial bypass graft-. 03/17/2025 right femoral and tibial Report Signatures Finalized by Sylvia Meyer MD, RPVI, FSIR on 03/20/2025 09:40 AMNormal [facility] ANKLE/BRACHIAL INDICES EXTREMITY LIMITEDPatient Info Name: Tristin Powell Age: 85 years : 1940 Gender: Male Exam Date: 03/20/2025 8:42 AM Patient Status: INPATIENT Site Location: [facility] Indications I73.9 - Peripheral vascular disease, unspecified Procedure Description 67003 Limited bilateral noninvasive physiologic studies of upper or lower extremity arteries with bidirectional Doppler/PVR waveform analysis at 1-2 levels. Assembler Body: Maggy Dempsey T Staff Ordering Physician: Beena [...] Segmental BP RIGHT Brachial A mmH RIGHT STAFF APPRAISER mmH RIGHT STAFF APPRAISER Index: 0.53 RIGHT DPA mmH RIGHT DPA Index: 0.57 RIGHT Digit mmH RIGHT YAMILE Index: 0.57 RIGHT TBI Index: 0.00 LEFT STAFF APPRAISER Index: 0.36 LEFT STAFF APPRAISER mmH LEFT DPA Index: 0.41 LEFT DPA mmH LEFT YAMILE Index: 0.41 Doppler RIGHT STAFF APPRAISER Waveform: Monophasic RIGHT DPA Waveform: Monophasic LEFT STAFF APPRAISER Waveform: Monophasic LEFT DPA Waveform: Monophasic , [...] on MonMar 20, 2025 9:40:58 AM EDTNormalRiverside ConfucianistA[facility] Doppler ankle/brachial indexon 08-82-2003Ghszqfm Info Name: Tristin Powell Age: 85 years : 1940 Gender: Male Exam Date: 03/20/2025 8:42 AM Patient Status: INPATIENT Site Location: [facility] Indications I73.9 - Peripheral vascular disease, unspecified Procedure Description 08595 Limited bilateral noninvasive physiologic studies of upper or lower extremity arteries with bidirectional Doppler/PVR waveform analysis at 1-2 levels. Assembler Body: Maggy Dempsey T Staff Ordering Physician: Beena [...] Segmental BP RIGHT Brachial A mmH RIGHT STAFF APPRAISER mmH RIGHT STAFF APPRAISER Index: 0.53 RIGHT DPA mmH RIGHT DPA Index: 0.57 RIGHT Digit mmH RIGHT YAMILE Index: 0.57 RIGHT TBI Index: 0.00 LEFT STAFF APPRAISER Index: 0.36 LEFT STAFF APPRAISER mmH LEFT DPA Index: 0.41 LEFT DPA mmH LEFT YAMILE Index: 0.41 Doppler RIGHT STAFF APPRAISER Waveform: Monophasic RIGHT DPA Waveform: Monophasic LEFT STAFF APPRAISER Waveform: Monophasic LEFT DPA Waveform: Monophasic , PVR RIGHT Ankle Grade: Abnormal RIGHT Transmetarsal Grade: Abnormal RIGHT Digit (PPG) Grade: Absent LEFT Ankle Grade: Abnormal Prior Interventions 03/17/2025 right femoral and tibial bypass graft-. 03/17/2025 right femoral and tibial Report Signatures Finalized by Sylvia Meyer MD, RPVI, FSIR on 03/20/2025 09:40 AMFUJI SYNAPSE [facility], Sylvia Haley MD - 03/20/2025 Patient Info Name: Tristin Powell Age: 85 years : 1940 Gender: Male Exam Date: 03/20/2025 8:42 AM Patient Status: INPATIENT Site Location: [facility] Indications I73.9 - Peripheral vascular disease, unspecified Procedure Description 43354 Limited bilateral noninvasive physiologic studies of upper or lower extremity arteries with bidirectional Doppler/PVR waveform analysis at 1-2 levels. Assembler Body: Maggy Dempsey T Staff Ordering Physician: Beena [...] Segmental BP RIGHT Brachial A mmH RIGHT STAFF APPRAISER mmH RIGHT STAFF APPRAISER Index: 0.53 RIGHT DPA mmH RIGHT DPA Index: 0.57 RIGHT Digit mmH RIGHT YAMILE Index: 0.57 RIGHT TBI Index: 0.00 LEFT STAFF APPRAISER Index: 0.36 LEFT STAFF APPRAISER mmH LEFT DPA Index: 0.41 LEFT DPA mmH LEFT YAMILE Index: 0.41 Doppler RIGHT STAFF APPRAISER Waveform: Monophasic RIGHT DPA Waveform: Monophasic LEFT STAFF APPRAISER Waveform: Monophasic LEFT DPA Waveform: Monophasic , PVR RIGHT Ankle Grade: Abnormal RIGHT Transmetarsal Grade: Abnormal RIGHT Digit (PPG) Grade: Absent LEFT Ankle Grade: Abnormal Prior Interventions 03/17/2025 right femoral and tibial bypass graft-. 03/17/2025 right femoral and tibial Report Signatures Finalized by Sylvia Meyer MD, RPVI, FSIR on 03/20/2025 09:40 AM [facility] METABOLIC PANELon 14-27-9122Tacnm gap [Moles/Vol]13 mmol/LNormal 10-20RiFulton County Health CenterComment on above:Order Comment: Therapeutic range for APTT's is 68 - 104 secondsPerformed By: #### [id number] #### [facility] [address] [place] [address] Emmanuel Plata M.D. [id number] [Mass/Vol]9.0 mg/dLNormal8.4-10.2RSt. Charles Hospital Comment on above:Order Comment: Therapeutic range for APTT's is 68 - 104 seconds Performed By: #### [id number] #### [facility] [address] [place] [address] Emmanuel Plata M.D. [id number] [Moles/Vol]108 mmol/XXlaqpy97-381YejscfytfFulton County Health Center Comment on above:Order Comment: Therapeutic range for APTT's is 68 - 104 seconds Performed By: #### [id number] #### [facility] [address] [place] [address] Emmanuel Plata M.D. [id number] [Mass/Vol]1.12 mg/dLNormal0.80-1.30RiFulton County Health CenterComment on above:Order Comment: Therapeutic range for APTT's is 68 - 104 secondsPerformed By: #### [id number] #### [facility] [address] [place] [address] Emmanuel Plata M.D. [id number] mL/min/1.73 a6Yvlbsf>=60RiFulton County Health CenterComment on above:Order Comment: Therapeutic range for APTT's is 68 - 104 secondsResult Comment: Estimated GFR was calculated using the 2020 CKD-EPI creatinine equation.Performed By: #### [id number] #### [facility] [address] [place], [place] [address] Emmanuel Plata M.D. [id number] [Mass/Vol]109 mg/xWYmar88-73MqalunpouKettering Health Hamilton Comment on above:Order Comment: Therapeutic range for APTT's is 68 - 104 seconds Performed By: #### [id number] #### [facility] [address] [place], [place] [address] Emmanuel Plata M.D. [id number] (Bld) [Moles/Vol]24 mmol/BSmrala87-85IswubiqkrKettering Health Hamilton Comment on above:Order Comment: Therapeutic range for APTT's is 68 - 104 seconds Performed By: #### [id number] #### [facility] [address] [place], [place] [address] Emmanuel Plata M.D. [id number] [Moles/Vol]5.0 mmol/LNormal3.5-5.1RSt. Charles HospitalComment on above:Order Comment: Therapeutic range for APTT's is 68 - 104 secondsResult Comment: Slightly HemolyzedPerformed By: #### [id number] #### [facility] [address] [place], [place] [address] Emmanuel Plata M.D. [id number] [Moles/Vol]140 mmol/EYlxizm091-228QidombnykKettering Health Hamilton Comment on above:Order Comment: Therapeutic range for APTT's is 68 - 104 seconds Performed By: #### [id number] #### [facility] [address] [place], [place] [address] Emmanuel Plata M.D. [id number] nitrogen [Mass/Vol]22 mg/dLNormal8-25RiFulton County Health Center Comment on above:Order Comment: Therapeutic range for APTT's is 68 - 104 seconds Performed By: #### [id number] #### [facility] [address] [place] [address] Emmanuel Plata M.D. [id number] nitrogen/Creatinine [Mass ratio]19.6 mg/lhCccesu01.0-20.0 [facility] HamiltonComment on above:Order Comment: Therapeutic range for APTT's is 68 - 104 secondsPerformed By: #### [id number] #### [facility] [address] [place] [address] Emmanuel Plata M.D. [id number] metabolic 2000 panelOrdered By: Larry Brady on 03-19-2025 Anion gap [Moles/Vol]13 mmol/L10 - 20 mmol/LOhioHealthCalcium [Mass/Vol]9 mg/dL 8.4 - 10.2 mg/dLOhioHealthChloride [Moles/Vol]108 mmol/L98 - 108 mmol/L OhioHealthCreatinine [Mass/Vol]1.12 mg/dL0.80 - 1.30 mg/dLOhioHealthGFR/1.73 sq M.predicted CKD-EPI (S/P/Bld) [Vol rate/Area]64- PINFOhioHealthComment on above: Estimated GFR was calculated using the 2020 CKD-EPI creatinine equation.Glucose [Mass/Vol]109 mg/qBYlli04 - 99 mg/dLOhioHealthHCO3 [Moles/Vol]24 mmol/L21 - 32 mmol/LOhioHealthInterpretation and review of laboratory resultsAbnormal OhioHealthPotassium [Moles/Vol]5 mmol/L3.5 - 5.1 mmol/LOhioHealthComment on above:Slightly HemolyzedSodium [Moles/Vol]140 mmol/L135 - 145 mmol/LOhioHealth Urea nitrogen [Mass/Vol]22 mg/dL8 - 25 mg/dLOhioHealthUrea nitrogen/Creatinine [Mass ratio]19.6 mg/mg10.0 - 20.0OhioOhioHealth [facility] has implemented the eGFR calculation approach that does not have a coefficient for race that conforms to the NKF-ASN Task Force Recommendations.[facility] 49-52-1381IYIO NRBC0.0 %NormalRiTrinity Health System [facility] HospitalComment on above: Performed By: #### [id number] #### [facility] [address] [place] [address] Emmanuel Plata M.D. [id number] NRBC ABS COUNT0.00 K/mcLNormal0.00-0.00RiTrinity Health System Twin [facility] Center HospitalComment on above:Performed By: #### [id number] #### [facility] [address] [place] [address] Emmanuel Plata M.D. [id number] distribution width (RBC) [Ratio]14.5 %Xcklrn62.6-14.8 [facility] HamiltonComment on above:Performed By: #### [id number] #### [facility] [address] [place] [address] Emmanuel Plata M.D. [id number] (Bld) [Volume fraction]27.8 %Low41.0-53.0RiTrinity Health System Twin [facility] Medical Center HospitalComment on above:Performed By: #### [id number] #### [facility] [address] [place], [place] [address] Emmanuel Plata M.D. [id number] (Bld) [Mass/Vol]10.4 g/dLLow13.5-17.5RiTrinity Health System [facility] HospitalComment on above:Performed By: #### [id number] #### [facility] [address] [place] [address] Emmanuel Plata M.D. [id number] (RBC) [Entitic mass]36.1 xxBkxt32.0-34.0RiTrinity Health System Twin [facility] HospitalComment on above:Performed By: #### [id number] #### [facility] [address] [place], [place] [address] Emmanuel Plata M.D. [id number] (RBC) [Entitic vol]96.5 wWAisltb39.0-100.0RiTrinity Health System [facility] HospitalComment on above:Performed By: #### [id number] #### [facility] [address] [place] [address] Emmanuel Plata M.D. [id number] CORPUSCULAR HEMOGLOBIN CONC37.4 g/fSLafp90.0-37.0RiTrinity Health System [facility] HospitalComment on above:Performed By: #### [id number] #### [facility] [address] [place] [address] Emmanuel Plata M.D. [id number] mean volume (Bld) [Entitic vol]9.6 fLNormal9.4-12.4RiversBlanchard Valley [facility] HospitalComment on above:Performed By: #### [id number] #### [facility] [address] [place], [place] [address] Emmanuel Plata M.D. [id number] (Bld) [#/Vol]148 10*3/sVNgt891-881Oifevvsjc Methodist HospitalComment on above:Performed By: #### [id number] #### [facility] [address] [place] [address] Emmanuel Plata M.D. [id number] (Bld) [#/Vol]2.88 10*6/uLLow4.50-5.90RiTrinity Health System [facility] Hospital Comment on above:Performed By: #### [id number] #### [facility] [address] [place] [address] Emmanuel Plata M.D. [id number] (Bld) [#/Vol]4.34 10*3/uLLow4.50-11.00RiFulton County Health Center Comment on above:Performed By: #### [id number] #### [facility] [address] [place] [address] Emmanuel Plaat M.D. [id number] panel Auto (Bld)on 86-89-0361Dtcgecodvhb distribution width (RBC) [Entitic vol]14.5 %11.6 - 14.8 %OhioHealthHematocrit (Bld) [Volume fraction]27.8 %Low41.0 - 53.0 %OhioHealthHemoglobin (Bld) [Mass/Vol]10.4 g/dLLow13.5 - 17.5 g/dLOhioHealthInterpretation and review of laboratory resultsAbnormalOhioHealth MCH (RBC) [Entitic mass]36.1 yzJtop98.0 - 34.0 pgOhioHealthMCHC (RBC) [Mass/Vol] 37.4 g/kUPkdh23.0 - 37.0 g/dLOhioHealthMCV (RBC) [Entitic vol]96.5 fL80.0 - 100.0 fLOhioHealthNucleated RBC (Bld) [#/Vol]0 10*3/uLOhioHealthNucleated RBC/100 WBC (Bld) [Ratio]0 %OhioHealthPlatelet mean volume (Bld) [Entitic vol] 9.6 fL9.4 - 12.4 fLOhioHealthPlatelets (Bld) [#/Vol]148 10*3/uLLowOhioHealthRBC (Bld) [#/Vol]2.88 10*6/uLLowOhioHealthWBC (Bld) [#/Vol]4.34 10*3/uLLowOhioHealth OhioHealthMAGNESIUM LEVELon 18-69-0350Zcrygrsnx [Mass/Vol]2.4 mg/dLNormal1.6-2.4 [facility] HamiltonComment on above:Performed By: #### [id number] #### [facility] [address] [place] [address] Emmanuel Plata M.D. [id number] 25-36-0729Rtqtfojoc [Mass/Vol]2.4 mg/dL1.6 - 2.4 mg/dL [facility] HospitalMagnesium [Mass/Vol]on 47-97-2786Etizbrayvlcrtg and review of laboratory resultsNormalOhioHealthNo Panel InformationOrdered By: Larry Brady on 13-55-5085JxrdMdybgpBHSZL METABOLIC PANELon 91-91-4212Wmdlp gap [Moles/Vol] 16 mmol/GRbpeuc89-07ZcmbvrxexFulton County Health CenterComment on above:Order Comment: [facility] has implemented the eGFR calculation approach that does not have a coefficient for race that conforms to the NKF-ASN Task Force Recommendations.Performed By: #### [id number] #### [facility] [address] [place], [place] [address] Emmanuel Plata M.D. [id number] [Mass/Vol]8.2 mg/dLLow8.4-10.2RSt. Charles Hospital Comment on above:Order Comment: [facility] has implemented the eGFR calculation approach that does not have a coefficient for race that conforms to the NKF-ASN Task Force Recommendations.Performed By: #### [id number] #### [facility] [address] [place], [place] [address] Emmanuel Plata M.D. [id number] [Moles/Vol]109 mmol/EDshm12-329GmywtpfzlFulton County Health Center Comment on above:Order Comment: [facility] has implemented the eGFR calculation approach that does not have a coefficient for race that conforms to the NKF-ASN Task Force Recommendations.Performed By: #### [id number] #### [facility] [address] [place], [place] [address] Emmanuel Plata M.D. [id number] [Mass/Vol]1.05 mg/dLNormal0.80-1.30RiFulton County Health CenterComment on above:Order Comment: [facility] has implemented the eGFR calculation approach that does not have a coefficient for race that conforms to the NKF-ASN Task Force Recommendations.Performed By: #### [id number] #### [facility] [address] [place], [place] [address] Emmanuel Plata M.D. [id number] mL/min/1.73 h9Rmtovf>=60RiFulton County Health CenterComment on above:Order Comment: [facility] has implemented the eGFR calculation approach that does not have a coefficient for race that conforms to the NKF-ASN Task Force Recommendations.Result Comment: Estimated GFR was calculated using the 2020 CKD-EPI creatinine equation.Performed By: #### [id number] #### [facility] [address] [place], [place] [address] Emmanuel Plata M.D. [id number] [Mass/Vol]111 mg/rKVywn18-54ObktofisvFulton County Health Center Comment on above:Order Comment: [facility] has implemented the eGFR calculation approach that does not have a coefficient for race that conforms to the NKF-ASN Task Force Recommendations.Performed By: #### [id number] #### [facility] [address] [place] [address] Emmanuel Plata M.D. [id number] (Bld) [Moles/Vol]19 mmol/OInq96-08UdvjyifsiFulton County Health Center Comment on above:Order Comment: [facility] has implemented the eGFR calculation approach that does not have a coefficient for race that conforms to the NKF-ASN Task Force Recommendations.Performed By: #### [id number] #### [facility] [address] [place] [address] Emmanuel Plata M.D. [id number] [Moles/Vol]4.1 mmol/LNormal3.5-5.1RSt. Charles HospitalComment on above:Order Comment: [facility] has implemented the eGFR calculation approach that does not have a coefficient for race that conforms to the NKF-ASN Task Force Recommendations.Result Comment: Slightly HemolyzedPerformed By: #### [id number] #### [facility] [address] [place] [address] Emmanuel Plata M.D. [id number] [Moles/Vol]140 mmol/SKyddrq788-870PpebtoaucKettering Health Hamilton Comment on above:Order Comment: [facility] has implemented the eGFR calculation approach that does not have a coefficient for race that conforms to the NKF-ASN Task Force Recommendations.Performed By: #### [id number] #### [facility] [address] [place] [address] Emmanuel Plata M.D. [id number] nitrogen [Mass/Vol]18 mg/dLNormal8-25[facility] Comment on above:Order Comment: [facility] has implemented the eGFR calculation approach that does not have a coefficient for race that conforms to the NKF-ASN Task Force Recommendations.Performed By: #### [id number] #### [facility] [address] [place], [place] [address] Emmanuel Plata M.D. [id number] nitrogen/Creatinine [Mass ratio]17.1 mg/knLhznfa68.0-20.0 [facility] HamiltonComment on above:Order Comment: [facility] has implemented the eGFR calculation approach that does not have a coefficient for race that conforms to the NKF-ASN Task Force Recommendations.Performed By: #### [id number] #### [facility] [address] [place] [address] Emmanuel Plata M.D. [id number] metabolic 2000 panelOrdered By: Fred Hameed on 29-07-4732Sffhc gap [Moles/Vol]16 mmol/L10 - 20 mmol/LOhioHealthCalcium [Mass/Vol]8.2 mg/dLLow 8.4 - 10.2 mg/dLOhioHealthChloride [Moles/Vol]109 mmol/LHigh98 - 108 mmol/L OhioHealthCreatinine [Mass/Vol]1.05 mg/dL0.80 - 1.30 mg/dLOhioHealthGFR/1.73 sq M.predicted CKD-EPI (S/P/Bld) [Vol rate/Area]69- PINFOhioHealthComment on above: Estimated GFR was calculated using the 2020 CKD-EPI creatinine equation.Glucose [Mass/Vol]111 mg/sXSbge78 - 99 mg/dLOhioHealthHCO3 [Moles/Vol]19 mmol/LLow21 - 32 mmol/LOhioHealthInterpretation and review of laboratory resultsAbnormal OhioHealthPotassium [Moles/Vol]4.1 mmol/L3.5 - 5.1 mmol/LOhioHealthComment on above:Slightly HemolyzedSodium [Moles/Vol]140 mmol/L135 - 145 mmol/LOhioHealth Urea nitrogen [Mass/Vol]18 mg/dL8 - 25 mg/dLOhioHealthUrea nitrogen/Creatinine [Mass ratio]17.1 mg/mg10.0 - 20.0OhioHealthOhioHealth [facility] has implemented the eGFR calculation approach that does not have a coefficient for race that conforms to the NKF-ASN Task Force Recommendations.[facility] 50-64-2373AQHE NRBC0.0 %NormalRiFulton County Health CenterComment on above: Performed By: #### [id number] #### [facility] [address] [place], [place] [address] Emmanuel Plata M.D. [id number] NRBC ABS COUNT0.00 K/mcLNormal0.00-0.00RiFulton County Health CenterComment on above:Performed By: #### [id number] #### [facility] [address] [place] [address] Emmanuel Plata M.D. [id number] distribution width (RBC) [Ratio]13.3 %Eqaozo35.6-14.8 [facility] HamiltonComment on above:Performed By: #### [id number] #### [facility] [address] [place], [place] [address] Emmanuel Plata M.D. [id number] (Bld) [Volume fraction]28.9 %Low41.0-53.0RiTrinity Health System [facility] HospitalComment on above:Performed By: #### 87975 #### [facility] [address] [place] [address] Emmanuel Plata M.D. [id number] (Bld) [Mass/Vol]10.5 g/dLLow13.5-17.5Rist. [facility] hospitalide Confucianist HospitalComment on above:Performed By: #### [id number] #### [facility] [address] [place] [address] Emmanuel Plata M.D. [id number] (RBC) [Entitic mass]34.3 qxCwzy59.0-34.0RiTrinity Health System [facility] HospitalComment on above:Performed By: #### [id number] #### [facility] [address] [place] [address] Emmanuel Plata M.D. [id number] (RBC) [Entitic vol]94.4 pMUopiiq47.0-100.0RiTrinity Health System [facility] HospitalComment on above:Performed By: #### [id number] #### [facility] [address] [place] [address] Emmanuel Plata M.D. [id number] CORPUSCULAR HEMOGLOBIN CONC36.3 g/sCUfwkzs56.0-37.0RiTrinity Health System [facility] HospitalComment on above:Performed By: #### 96483 #### [facility] [address] [place] [address] Emmanuel Plata M.D. [id number] mean volume (Bld) [Entitic vol]9.7 fLNormal9.4-12.4[facility] HospitalComment on above:Performed By: #### 05134 #### [facility] [address] [place] [address] Emmanuel Plata M.D. [id number] (Bld) [#/Vol]157 10*3/gWWkwcmy969-413VcelofbhxFulton County Health CenterComment on above:Performed By: #### 09701 #### [facility] [address] [place] [address] Emmanuel Plata M.D. [id number] (Bld) [#/Vol]3.06 10*6/uLLow4.50-5.90RiFulton County Health Center Comment on above:Performed By: #### [id number] #### [facility] [address] [place] [address] Emmanuel Plata M.D. [id number] (Bld) [#/Vol]5.05 10*3/uLNormal4.50-11.00RiFulton County Health CenterComment on above:Performed By: #### 65629 #### [facility] [address] [place] [address] Emmanuel Plata M.D. [id number] panel Auto (Bld)on 72-79-0769Mxflaubgsiv distribution width (RBC) [Entitic vol]13.3 %11.6 - 14.8 %OhioHealthHematocrit (Bld) [Volume fraction]28.9 %Low41.0 - 53.0 %OhioHealthHemoglobin (Bld) [Mass/Vol]10.5 g/dLLow13.5 - 17.5 g/dLOhioHealthInterpretation and review of laboratory resultsAbnormalOhioHealth MCH (RBC) [Entitic mass]34.3 vjBtrs14.0 - 34.0 pgOhioHealthMCHC (RBC) [Mass/Vol] 36.3 g/dL31.0 - 37.0 g/dLOhioHealthMCV (RBC) [Entitic vol]94.4 fL80.0 - 100.0 fL OhioHealthNucleated RBC (Bld) [#/Vol]0 10*3/uLOhioHealthNucleated RBC/100 WBC (Bld) [Ratio]0 %OhioHealthPlatelet mean volume (Bld) [Entitic vol]9.7 fL9.4 - 12.4 fLOhioHealthPlatelets (Bld) [#/Vol]157 10*3/uLOhioHealthRBC (Bld) [#/Vol] 3.06 10*6/uLLowOhioHealthWBC (Bld) [#/Vol]5.05 10*3/uLOhioHealthOhioHealth MAGNESIUM LEVELon 85-56-4185Zhkqomkqh [Mass/Vol]2.1 mg/dLNormal1.6-2.4RSt. Charles HospitalComment on above:Performed By: #### [id number] #### [facility] [address] [address] Emmanuel Plata M.D. [id number] 57-57-7043Yavgomveb [Mass/Vol]2.1 mg/dL1.6 - 2.4 mg/dL [facility] HospitalMagnesium [Mass/Vol]on 66-04-7013Cxfehcukhenwrp and review of laboratory resultsNormalOhioHealthNo Panel Informationon 34-35-9586RwlpEfcaksSL Lower extremity vein - righton 03-18-2025 Fluoroscopy used for intraoperative angiogram. Refer to the operative report for details. [employer] Workstation ID: [id number] RISEXAMINATION: XR OR ANGIO [...] None. TECHNIQUE: RADIATION EXPOSURE: Fluoro dose in [place],r mGy: 7.18. FINDINGS: See impression. IMPRESSION: Fluoroscopy used for intraoperative angiogram. Refer to the operative report for details. MAY/edi Workstation ID: [id number] [facility] Lower extremity vein - rightOrdered By: Sylvia Meyer on 03-18-2025 [facility] Work Phone: APTN HEPARIN COVERAGEon 57-17-8412mIWM Coag (Bld) [Time]92 nDtvv85-92ZflayebcdFulton County Health CenterComment on above:Order Comment: Therapeutic range for APTT's is 68 - 104 secondsPerformed By: #### [id number] #### [facility] [address] [place], [place] [address] Emmanuel Plata M.D. [id number] Heparin Coverageon 33-99-9167uARJ Coag (Bld) [Time]92 [facility] Medical CenterInterpretation and review of laboratory resultsAbnormalOhioHealth Therapeutic range for APTT's is 68 - 104 secondsOhioHealthOhioHealthBASIC METABOLIC PANELon 38-07-0915Ynlwd gap [Moles/Vol]12 mmol/CXhsihp23-68NmxmzzenaFulton County Health CenterComment on above:Order Comment: [facility] has implemented the eGFR calculation approach that does not have a coefficient for race that conforms to the NKF-ASN Task Force Recommendations.Performed By: #### [id number] #### [facility] [address] [place] [address] Emmanuel Plata M.D. [id number] [Mass/Vol]8.5 mg/dLNormal8.4-10.2RSt. Charles Hospital Comment on above:Order Comment: [facility] has implemented the eGFR calculation approach that does not have a coefficient for race that conforms to the NKF-ASN Task Force Recommendations.Performed By: #### [id number] #### [facility] [address] [place] [address] Emmanuel Plata M.D. [id number] [Moles/Vol]106 mmol/JWokazv27-074KoysrltirFulton County Health Center Comment on above:Order Comment: [facility] has implemented the eGFR calculation approach that does not have a coefficient for race that conforms to the NKF-ASN Task Force Recommendations.Performed By: #### [id number] #### [facility] [address] [place] [address] 26123 Emmanuel Plata M.D. [id number] [Mass/Vol]1.05 mg/dLNormal0.80-1.30RiFulton County Health CenterComment on above:Order Comment: [facility] has implemented the eGFR calculation approach that does not have a coefficient for race that conforms to the NKF-ASN Task Force Recommendations.Performed By: #### [id number] #### [facility] [address] [place] [address] 38008 Emmanuel Plata M.D. [id number] mL/min/1.73 w7Nfjmqb>=60RiFulton County Health CenterComment on above:Order Comment: [facility] has implemented the eGFR calculation approach that does not have a coefficient for race that conforms to the NKF-ASN Task Force Recommendations.Result Comment: Estimated GFR was calculated using the 2020 CKD-EPI creatinine equation.Performed By: #### [id number] #### [facility] [address] [place] [address] 44824 Emmanuel Plata M.D. [id number] [Mass/Vol]90 mg/cZIchvpg11-13TophrnuchFulton County Health Center Comment on above:Order Comment: [facility] has implemented the eGFR calculation approach that does not have a coefficient for race that conforms to the NKF-ASN Task Force Recommendations.Performed By: #### [id number] #### [facility] [address] [place] [address] 43684 Emmanuel Plata M.D. [id number] (Bld) [Moles/Vol]24 mmol/MLofdys73-14OjsmvqakkFulton County Health Center Comment on above:Order Comment: [facility] has implemented the eGFR calculation approach that does not have a coefficient for race that conforms to the NKF-ASN Task Force Recommendations.Performed By: #### [id number] #### [facility] [address] [place], [place] [address] Emmanuel Plata M.D. [id number] [Moles/Vol]4.1 mmol/LNormal3.5-5.1RSt. Charles HospitalComment on above:Order Comment: [facility] has implemented the eGFR calculation approach that does not have a coefficient for race that conforms to the NKF-ASN Task Force Recommendations.Performed By: #### [id number] #### [facility] [address] [place], [place] [address] Emmanuel Plata M.D. [id number] [Moles/Vol]138 mmol/KDbyfch925-158IyuvbruavKettering Health Hamilton Comment on above:Order Comment: [facility] has implemented the eGFR calculation approach that does not have a coefficient for race that conforms to the NKF-ASN Task Force Recommendations.Performed By: #### [id number] #### [facility] [address] [place], [place] [address] Emmanuel Plata M.D. [id number] nitrogen [Mass/Vol]16 mg/dLNormal8-25RiFulton County Health Center Comment on above:Order Comment: [facility] has implemented the eGFR calculation approach that does not have a coefficient for race that conforms to the NKF-ASN Task Force Recommendations.Performed By: #### [id number] #### [facility] [address] [place], [place] [address] Emmanuel Plata M.D. [id number] nitrogen/Creatinine [Mass ratio]15.2 mg/ycFfgfjz90.0-20.0 [facility]tering Health HamiltonComment on above:Order Comment: [facility] has implemented the eGFR calculation approach that does not have a coefficient for race that conforms to the NKF-ASN Task Force Recommendations.Performed By: #### [id number] #### [facility] [address] [place] [address] Emmanuel Plata M.D. [id number] metabolic 2000 panelon 06-41-2231Dgkka gap [Moles/Vol]12 mmol/L 10 - 20 mmol/LOhioHealthCalcium [Mass/Vol]8.5 mg/dL8.4 - 10.2 mg/dLOhioHealth Chloride [Moles/Vol]106 mmol/L98 - 108 mmol/LOhioHealthCreatinine [Mass/Vol]1.05 mg/dL0.80 - 1.30 mg/dLOhioHealthGFR/1.73 sq M.predicted CKD-EPI (S/P/Bld) [Vol rate/Area]69- PINFOhioHealthComment on above:Estimated GFR was calculated using the 2020 CKD-EPI creatinine equation.Glucose [Mass/Vol]90 mg/dL65 - 99 mg/dL OhioHealthHCO3 [Moles/Vol]24 mmol/L21 - 32 mmol/LOhioHealthPotassium [Moles/Vol] 4.1 mmol/L3.5 - 5.1 mmol/LOhioHealthSodium [Moles/Vol]138 mmol/L135 - 145 mmol/L New YorkHealthUrea nitrogen [Mass/Vol]16 mg/dL8 - 25 mg/dLNew YorkHealthUrea nitrogen/Creatinine [Mass ratio]15.2 mg/mg10.0 - 20.0OhioOhioHealth [facility] has implemented the eGFR calculation approach that does not have a coefficient for race that conforms to the NKF-ASN Task Force Recommendations.[facility] 97-38-5827ZDAO NRBC0.0 %NormalRiversMercy Health – The Jewish HospitalComment on above:Performed By: #### [id number] #### [facility] [address] [place], [place] [address] Emmanuel Plata M.D. [id number] NRBC ABS COUNT0.00 K/mcLNormal0.00-0.00RiTrinity Health System Twin City Medical Center HospitalComment on above:Performed By: #### [id number] #### [facility] [address] [place] [address] Emmanuel Plata M.D. [id number] distribution width (RBC) [Ratio]13.2 %Hngmgg66.6-14.8 [facility] HospitalComment on above:Performed By: #### [id number] #### [place] [address] Emmanuel Plata M.D. [id number] (Bld) [Volume fraction]33.1 %Low41.0-53.0RiTrinity Health System Twin City Medical Center HospitalComment on above:Result Comment: Repeated AND verified Performed By: #### [id number] #### [facility] [address] [place], [place] [address] Emmanuel Plata M.D. [id number] (Bld) [Mass/Vol]11.0 g/dLLow13.5-17.5RiTrinity Health System Twin City Medical Center HospitalComment on above:Performed By: #### [id number] #### [place] [address] Emmanuel Plata M.D. [id number] (RBC) [Entitic mass]29.8 haJybugy19.0-34.0RiTrinity Health System Twin City Medical Center HospitalComment on above:Performed By: #### [id number] #### [facility] [address] [place], [place] [address] Emmanuel Plata M.D. [id number] (RBC) [Entitic vol]89.7 yCAyygro59.0-100.0RiTrinity Health System Twin City Medical Center HospitalComment on above:Performed By: #### [id number] #### [facility] [address] [place], [place] [address] Emmanuel Plata M.D. [id number] CORPUSCULAR HEMOGLOBIN CONC33.2 g/rDJjtypv30.0-37.0Kettering Health HamiltonComment on above:Result Comment: Cold Agglutinin present Performed By: #### [id number] #### [facility] [address] [place] [address] Emmanuel Plata M.D. [id number] mean volume (Bld) [Entitic vol]10.2 fLNormal9.4-12.4RiversMercy Health – The Jewish HospitalComment on above:Performed By: #### [id number] #### [facility] [address] [place] [address] Emmanuel Plata M.D. [id number] (Bld) [#/Vol]153 10*3/zFLlwpxe972-452IcitrblkiFulton County Health CenterComment on above:Performed By: #### [id number] #### [facility] [address] [place], [place] [address] Emmanuel Plata M.D. [id number] (Bld) [#/Vol]3.69 10*6/uLLow4.50-5.90[facility] Comment on above:Performed By: #### [id number] #### [facility] [address] [place], [place] [address] Emmanuel Plata M.D. [id number] (Bld) [#/Vol]3.29 10*3/uLLow4.50-11.00[facility] Comment on above:Performed By: #### [id number] #### [facility] [address] [place], [place] [address] Emmanuel Plata M.D. [id number] panel Auto (Bld)on 50-96-3926Akiutiayhbp distribution width (RBC) [Entitic vol]13.2 %11.6 - [...] 3.69 10*6/uLLowOhioHealthWBC (Bld) [#/Vol]3.29 10*3/uLLowOhioHealthOhioHealthECG 12 Leadon 81-78-4190Llmimk Yntd98XZTYaymWtkbknB Bsbn59njvroqaTcnkLmwwlfS-E Kmldxinm656 msOhioHealthQ-T Amdxicme850 msOhioHealthQRS Oedmzavc158 msOhioHealth QTC Calculation (Bezet)464 msOhioHealthR Nseo28xbmwxtqElexIkiggnG Tlcd39qggfqtx OhioHealthVentricular Jatw91JGGGgufPuwqooXzrbq rhythm with Premature supraventricular complexes Otherwise normal ECG Confirmed by MARY CARLTON ([id number]) on 03/17/2025 7:58:31 AMMUSEOhioHealth Glucose (Bld) [Mass/Vol]on 73-58-1779Vsroabm [Mass/Vol]105 mg/rEPjjc46 - 99 mg/dLOhioHealthInterpretation and review of laboratory resultsAbnormalOhioHealth OhioHealthHEMOGLOBIN AND HEMATOCRITon 96-26-1906Anumzrevcf (Bld) [Volume fraction]30.5 %Low41.0-53.0RiFulton County Health CenterComment on above: Performed By: #### [id number] #### [facility] [address] [place], [place] [address] Emmanuel Plata M.D. [id number] (Bld) [Mass/Vol]11.2 g/dLLow13.5-17.5RiFulton County Health CenterComment on above:Performed By: #### [id number] #### [facility] [address] [place] [address] Emmanuel Plata M.D. [id number] and Hematocrit panel (Bld)on 70-15-3678Fltgkdjygg (Bld) [Volume fraction]30.5 %Low41.0 - 53.0 %New YorkHealthHemoglobin (Bld) [Mass/Vol]11.2 g/dLLow13.5 - 17.5 g/dLOhioHealthInterpretation and review of laboratory resultsAbnormalOUniversity Hospitals Health SystemealSelect Medical Specialty Hospital - CincinnatiioHealthMAGNESIUM LEVELon 52-67-4947Izvxaeyxa [Mass/Vol]2.1 mg/dLNormal1.6-2.4RiversMercy Health – The Jewish HospitalComment on above: Performed By: #### [id number] #### [facility] [address] [place], [place] [address] Emmanuel Plata M.D. [id number] 41-20-0266Bptyhiazg [Mass/Vol]2.1 mg/dL1.6 - 2.4 mg/dL [facility]No Panel Informationon 13-94-6595Jfegukaqlnkerk and review of laboratory resultsNormalOhioHealthOhioHealthOP NOTEon 94-98-7552UGTRISTIN DENG [id number] DATE 03/17/2025 OPERATIVE REPORT SURGEON MOHSEN SARABIA MD [employer] FAUSTINA EDGARD, RESIDENT PREOPERATIVE DIAGNOSIS Chronic limb-threatening ischemia of [...] did elect to shoot an angiogram. A 23-Arabic butterfly needle was used to puncture the [...] 200 cc. MD Carlo GUNN 03/17/2025 16:58 [id number] T 03/17/2025 23:17 BRISEIDA/ADAL AUTHENTICATED BY MOHSEN SARABIA, ON 03/24/2025 10:13:39NormalRiverside [facility] GLUCOSE - RALSon 57-23-1711Wuobsxk [Mass/Vol]105 mg/dLHigh 65-99Rivers[facility] HospitalComment on above:Performed By: #### [id number] #### [facility] [address] [place] [address] [id number] RMHPOCUS Lower extremity vein - righton 68-68-9002Hffzzdwyq Study observation (narrative)OhioHealthXR OR ANGIO LOWER EXTREMITY RIGHTon 78-97-1230TU OR ANGIO LOWER EXTREMITY RIGHTEXAMINATION: XR OR [...] Refer to the operative report for details. [employer] Workstation ID: [id number] Dictated by: Sylvia MEYER on MonMar 18, 2025 7:54:33 AM EDT Transcribed by: ZENA NEGRETE on MonMar 18, 2025 8:58:15 AM EDT Finalized by: Sylvia MEYER on MonMar 18, 2025 10:04:09 AM EDTNormalRiversMercy Health – The Jewish HospitalComment on above:Order Comment: Injury/Trauma or Illness?:Illness/Other How long have you had these symptoms (acute/chronic)?:Acute Reason for exam?:rt leg bypass Type of Exam?:Unknown Additional signs and symptoms?:sx Fluoro time in minutes:1.3 Fluoro dose in mGy?:7.18APTT HEPARIN COVERAGEon 32-67-7294zWIS Coag (Bld) [Time] 85 uMxpe83-20Amxvrvhoe [facility] Surgical HospitalComment on above:Order Comment: Therapeutic range for APTT's is 68 - 104 secondsPerformed By: #### [id number] #### [facility] [address] [place] [address] Emmanuel Plata M.D. [id number] Coag (Bld) [Time]90 fIpxz96-39Eqsrxfael Confucianist HospitalComment on above:Order Comment: Therapeutic range for APTT's is 68 - 104 seconds Performed By: #### [id number] #### [facility] [address] [place] [address] 29565 Emmanuel Plata M.D. [id number] Coag (Bld) [Time]91 uXfdr62-78OprhgokgwKettering Health HamiltonComment on above:Order Comment: Therapeutic range for APTT's is 68 - 104 seconds Performed By: #### [id number] #### [facility] [address] [place] [address] 79[address] Emmanuel Plata M.D. [id number] Heparin CoverageOrdered By: Remigio Hernandez on 48-86-0407wWNH Coag (Bld) [Time]85 sHighOhioHealthInterpretation and review of laboratory results AbnormalOhioHealthTherapeutic range for APTT's is 68 - 104 secondsOhioHealth Wilson Memorial HospitalAPTT Heparin CoverageOrdered By: Flory Pino on 83-13-4138lKLF Coag (Bld) [Time]90 sHighOhioHealthTherapeutic range for APTT's is 68 - 104 seconds OhioHealthAPTT Heparin CoverageOrdered By: Deena Escoto on 48-78-6228aAQN Coag (Bld) [Time]91 sHighOhioHealthInterpretation and review of laboratory results AbnormalOhioHealthTherapeutic range for APTT's is 68 - 104 secondsOhioHealth Wilson Memorial HospitalBASIC METABOLIC PANELon 13-35-7220Bstpf gap [Moles/Vol]15 mmol/LNormal -Kettering Health HamiltonComment on above:Order Comment: [facility] has implemented the eGFR calculation approach that does not have a coefficient for race that conforms to the NKF-ASN Task Force Recommendations.Performed By: #### [id number] #### [facility] [address] [place] [address] Emmanuel Plata M.D. [id number] [Mass/Vol]9.0 mg/dLNormal8.4-10.2RSt. Charles Hospital Comment on above:Order Comment: [facility] has implemented the eGFR calculation approach that does not have a coefficient for race that conforms to the NKF-ASN Task Force Recommendations.Performed By: #### [id number] #### [facility] [address] [place] [address] Emmanuel Plata M.D. [id number] [Moles/Vol]106 mmol/GMvqxqi38-324RamkryuyxKettering Health Hamilton Comment on above:Order Comment: [facility] has implemented the eGFR calculation approach that does not have a coefficient for race that conforms to the NKF-ASN Task Force Recommendations.Performed By: #### [id number] #### [facility] [address] [place], [place] [address] Emmanuel Plata M.D. [id number] [Mass/Vol]1.11 mg/dLNormal0.80-1.30RiFulton County Health CenterComment on above:Order Comment: [facility] has implemented the eGFR calculation approach that does not have a coefficient for race that conforms to the NKF-ASN Task Force Recommendations.Performed By: #### [id number] #### [facility] [address] [place], [place] [address] Emmanuel Plata M.D. [id number] mL/min/1.73 g3Bpdtoa>=60RiFulton County Health CenterComment on above:Order Comment: [facility] has implemented the eGFR calculation approach that does not have a coefficient for race that conforms to the NKF-ASN Task Force Recommendations.Result Comment: Estimated GFR was calculated using the 2020 CKD-EPI creatinine equation.Performed By: #### [id number] #### [facility] [address] [place], [place] [address] Emmanuel Plata M.D. [id number] [Mass/Vol]105 mg/aTQwym51-75FrimbimdcFulton County Health Center Comment on above:Order Comment: [facility] has implemented the eGFR calculation approach that does not have a coefficient for race that conforms to the NKF-ASN Task Force Recommendations.Performed By: #### [id number] #### [facility] [address] [place], [place] [address] Emmanuel Plata M.D. [id number] (Bld) [Moles/Vol]24 mmol/KSiepkl81-52SrfrlyeiwFulton County Health Center Comment on above:Order Comment: [facility] has implemented the eGFR calculation approach that does not have a coefficient for race that conforms to the NKF-ASN Task Force Recommendations.Performed By: #### [id number] #### [facility] [address] [place], [place] [address] Emmanuel Plata M.D. [id number] [Moles/Vol]4.3 mmol/LNormal3.5-5.1RSt. Charles HospitalComment on above:Order Comment: [facility] has implemented the eGFR calculation approach that does not have a coefficient for race that conforms to the NKF-ASN Task Force Recommendations.Performed By: #### [id number] #### [facility] [address] [place] [address] Emmanuel Plata M.D. [id number] [Moles/Vol]141 mmol/WSxtjeb532-232ErqycycvjFulton County Health Center Comment on above:Order Comment: [facility] has implemented the eGFR calculation approach that does not have a coefficient for race that conforms to the NKF-ASN Task Force Recommendations.Performed By: #### [id number] #### [facility] [address] [place] [address] Emmanuel Plata M.D. [id number] nitrogen [Mass/Vol]20 mg/dLNormal8-25RiFulton County Health Center Comment on above:Order Comment: [facility] has implemented the eGFR calculation approach that does not have a coefficient for race that conforms to the NKF-ASN Task Force Recommendations.Performed By: #### [id number] #### [facility] [address] [place] [address] Emmanuel Plata M.D. [id number] nitrogen/Creatinine [Mass ratio]18.0 mg/ojPobakx25.0-20.0 [facility] HamiltonComment on above:Order Comment: [facility] has implemented the eGFR calculation approach that does not have a coefficient for race that conforms to the NKF-ASN Task Force Recommendations.Performed By: #### [id number] #### [facility] [place], [place] [address] Emmanuel Plata M.D. [id number] metabolic 2000 panelon 93-48-4745Xwjaj gap [Moles/Vol]15 mmol/L 10 - 20 mmol/LOhioHealthCalcium [Mass/Vol]9 mg/dL8.4 - 10.2 mg/dLOhioHealth Chloride [Moles/Vol]106 mmol/L98 - 108 mmol/LOhioHealthCreatinine [Mass/Vol]1.11 mg/dL0.80 - 1.30 mg/dLOhioHealthGFR/1.73 sq M.predicted CKD-EPI (S/P/Bld) [Vol rate/Area]65- PINFOhioHealthComment on above:Estimated GFR was calculated using the 2020 CKD-EPI creatinine equation.Glucose [Mass/Vol]105 mg/pGUbhb32 - 99 mg/dLOhioHealthHCO3 [Moles/Vol]24 mmol/L21 - 32 mmol/LOhioHealthInterpretation and review of laboratory resultsAbnormalOhioHealthPotassium [Moles/Vol]4.3 mmol/L3.5 - 5.1 mmol/LOhioHealthSodium [Moles/Vol]141 mmol/L135 - 145 mmol/L OhioHealthUrea nitrogen [Mass/Vol]20 mg/dL8 - 25 mg/dLOhioHealthUrea nitrogen/Creatinine [Mass ratio]18 mg/mg10.0 - 20.0OhioOhioHealth [facility] has implemented the eGFR calculation approach that does not have a coefficient for race that conforms to the NKF-ASN Task Force Recommendations.OhioWooster Community HospitalBlood type and Indirect antibody screen panel (Bld)on 32-20-7203AHP and Rh group Nom (Bld)Blood group O Rh(D) positiveOhioHealthBlood group antibody screen QlNegativeOhioHealthSpecimen Fyzbyrq7903/19/2025 23:59 EST OhioHealthOhioHealthCBCon 60-47-4600FQGE NRBC0.0 %NormalRiTrinity Health System Twin City Medical Center HospitalComment on above:Performed By: #### [id number] #### [facility] [address] [place] [address] Emmanuel Plata M.D. [id number] NRBC ABS COUNT0.00 K/mcLNormal0.00-0.00RiFulton County Health CenterComment on above:Performed By: #### [id number] #### [facility] [address] [place] [address] Emmanuel Plata M.D. [id number] distribution width (RBC) [Ratio]13.3 %Ykkxhl28.6-14.8 [facility] HamiltonComment on above:Performed By: #### [id number] #### [facility] [address] [place], [place] [address] Emmanuel Plata M.D. [id number] (Bld) [Volume fraction]36.7 %Low41.0-53.0RiFulton County Health CenterComment on above:Performed By: #### [id number] #### [facility] [address] [place], [place] [address] Emmanuel Plata M.D. [id number] (Bld) [Mass/Vol]12.0 g/dLLow13.5-17.5RiFulton County Health CenterComment on above:Performed By: #### [id number] #### [facility] [address] [place], [place] [address] Emmanuel Plata M.D. [id number] (RBC) [Entitic mass]29.9 yyNvccbl02.0-34.0RiTrinity Health System Twin City [facility] Center HospitalComment on above:Performed By: #### [id number] #### [facility] [address] [place] [address] Emmanuel Plata M.D. [id number] (RBC) [Entitic vol]91.3 aAQwxtua26.0-100.0RiTrinity Health System Twin City Medical Center HospitalComment on above:Performed By: #### [id number] #### [facility] [address] [place] [address] Emmanuel Plata M.D. [id number] CORPUSCULAR HEMOGLOBIN CONC32.7 g/fFZqvaby96.0-37.0RiTrinity Health System Twin City Medical Center HospitalComment on above:Performed By: #### [id number] #### [facility] [address] [place] [address] Emmanuel Plata M.D. [id number] mean volume (Bld) [Entitic vol]10.1 fLNormal9.4-12.4[facility] Confucianist HospitalComment on above:Performed By: #### [id number] #### [facility] [address] [place], [place] [address] Emmanuel Plata M.D. [id number] (Bld) [#/Vol]159 10*3/ePMyzlop431-152Mhvmhtgwt Methodist HospitalComment on above:Performed By: #### [id number] #### [facility] [address] [place] [address] Emmanuel Plata M.D. [id number] (Bld) [#/Vol]4.02 10*6/uLLow4.50-5.90RiTrinity Health System Twin City [facility] Center Hospital Comment on above:Performed By: #### [id number] #### [facility] [address] [place] [address] Emmanuel Plata M.D. [id number] (Bld) [#/Vol]4.27 10*3/uLLow4.50-11.00[facility] Comment on above:Performed By: #### [id number] #### [facility] [address] [place] [address] Emmanuel Plata M.D. [id number] panel Auto (Bld)on 89-32-8230Kpxtjslakns distribution width (RBC) [Entitic vol]13.3 %11.6 - [...] (Bld) [#/Vol]4.27 10*3/uLLowOhioHealthOhioHealthINR Coag (PPP) [Relative time]on 36-40-7368FO Coag (PPP) [Time]14.7 sHighOhioHealth During the induction phase of oral anticoagulation, the INR may not reflect the anticoagulation status of the patient. Therapeutic ranges for INR's are: Most clinical situations: INR 2.0-3.0 Mechanical Prosthetic Valve: INR 2.5-3.5 Critical: INR >5.0OhioHealthMAGNESIUM LEVELon 25-63-0490Tkheovifj [Mass/Vol]2.3 mg/dLNormal1.6-2.4RSt. Charles HospitalComment on above:Performed By: #### [id number] #### [facility] [address] [place] [address] Emmanuel Plata M.D. [id number] 57-74-0673Xdugriuem [Mass/Vol]2.3 mg/dL1.6 - 2.4 mg/dL OhioHealthMagnesium [Mass/Vol]on 80-30-3910Ukfljexumsvwwu and review of laboratory resultsNormalOhiILealthNo Panel InformationOrdered By: Flory Pino on 17-62-9269Yrenpueovyyurk and review of laboratory resultsAbnormalOhiILealth [facility] HospitalNo Panel Informationon 13-89-8029NnnmBdxvcfLK/INRon 87-43-2187IME Coag (PPP) [Relative time]1.1 {INR}0.8 - 1.1OhioHealthINR Coag (PPP) [Relative time] 1.1 {INR}Normal0.8-1.1RSt. Charles HospitalComment on above:Order Comment: During the induction phase of oral anticoagulation, the INR may not reflect the anticoagulation status of the patient. Therapeutic ranges for INR's are:Most clinical situations: INR 2.0-3.0Mechanical Prosthetic Valve: INR 2.5- 3.5Critical: INR >5.0Performed By: #### [id number] ####[facility] [address] [place] [address] Emmanuel Plata M.D. [id number] Coag (PPP) [Time]14.7 sHigh11.8-14.3RSt. Charles Hospital Comment on above:Order Comment: During the induction phase of oral anticoagulation, the INR may not reflect the anticoagulation status of the patient. Therapeutic ranges for INR's are:Most clinical situations: INR 2.0- 3.0Mechanical Prosthetic Valve: INR 2.5-3.5Critical: INR >5.0Performed By: #### [id number] ####[facility] [address] [place] [address] Emmanuel Plata M.D. [id number] AND SCREENon 03-16-2025 TYPE AND SCREENABORH: O Positive AB SCREEN: Negative EXPIRATION DATE: 03/19/2025 23:59 ESTNormalRiversMercy Health – The Jewish HospitalComment on above:Performed By: #### [id number] #### [facility] [address] [place] [address] Emmanuel Plata M.D. [id number] SAPHENOUS VEIN MAPon 24-54-6441HI SAPHENOUS VEIN MAPPatient Info Name: Tristin Powell Age: 85 years : 1940 Gender: Male Exam Date: 03/14/2025 9:26 PM Patient Status: INPATIENT Site Location: [facility] Indications Z01.810 - Encounter for preprocedural cardiovascular examination Procedure Description 91836 Duplex examination using B-mode, color and spectral Doppler of extremity veins including responses to compression and other maneuvers; complete bilateral study. Assembler Body: Cristian Ellis RVT, [facility] Staff Ordering Physician: Beena Barraza Conclusions * [...] Aaron Hein MD, RPVI on 03/16/2025 11:15 AMNormalRiverside Confucianist HospitalUS UE VEIN MAPon [id number] UE VEIN MAPPatient Info Name: Tristin Powell Age: 85 years : 1940 Gender: Male Exam Date: 03/14/2025 9:20 PM Patient Status: INPATIENT Site Location: [facility] Indications Z01.810 - Encounter for preprocedural cardiovascular examination Procedure Description 81340 Duplex examination using B-mode, color and spectral Doppler of extremity veins including responses to compression and other maneuvers; complete bilateral study. Assembler Body: Cristian Ellis RVT, [facility] Staff Ordering Physician: Beena Celis * Right [...] Aaron Hein MD, RPLUIZA on 03/16/2025 11:14 AMNormalRiverside South [facility] Spine & Surgical HospitalUltst. joseph medical center Saphenous vein mappingon [id number] Info Name: Tristin Powell Age: 85 years : 1940 Gender: Male Exam Date: 03/14/2025 9:26 PM Patient Status: INPATIENT Site Location: [facility] Indications Z01.810 - Encounter for preprocedural cardiovascular examination Procedure Description 28423 Duplex examination using B-mode, color and spectral Doppler of extremity veins including responses to compression and other maneuvers; complete bilateral study. Assembler Body: Cristian Ellis RVT, [facility] Staff Ordering Physician: Beena Barraza Conclusions * [...] by Aaron Hein MD, RPLUIZA on 03/16/2025 11:15 [facility] Hein, Aaron Mas MD - 03/16/2025 Patient Info Name: Tristin Powell Age: 85 years : 1940 Gender: Male Exam Date: 03/14/2025 9:26 PM Patient Status: INPATIENT Site Location: [facility] Indications Z01.810 - Encounter for preprocedural cardiovascular examination Procedure Description 01400 Duplex examination using B-mode, color and spectral Doppler of extremity veins including responses to compression and other maneuvers; complete bilateral study. Assembler Body: Cristian Ellis RVT, [facility] Staff Ordering Physician: Beena Barraza Conclusions * [...] 11:15 AM [facility] extremity vein mappingon [id number] Info Name: Tristin Powell Age: 85 years : 1940 Gender: Male Exam Date: 03/14/2025 9:20 PM Patient Status: INPATIENT Site Location: [facility] Indications Z01.810 - Encounter for preprocedural cardiovascular examination Procedure Description 33642 Duplex examination using B-mode, color and spectral Doppler of extremity veins including responses to compression and other maneuvers; complete bilateral study. Assembler Body: Cristian Ellis RVT, [facility] Staff Ordering Physician: Beena Barraza Conclusions * [...] Aaron Hein MD, RPVI on 03/16/2025 11:14 [facility] Aaron Hein MD - 03/16/2025 Patient Info Name: Tristin Powell Age: 85 years : 1940 Gender: Male Exam Date: 03/14/2025 9:20 PM Patient Status: INPATIENT Site Location: [facility] Indications Z01.810 - Encounter for preprocedural cardiovascular examination Procedure Description 00011 Duplex examination using B-mode, color and spectral Doppler of extremity veins including responses to compression and other maneuvers; complete bilateral study. Assembler Body: Cristian Ellis RVT, [facility] Staff Ordering Physician: Beena Barraza Conclusions * [...] Hein MD, RPVI on 03/16/2025 11:14 AM [facility] [id number] Coag (Bld) [Time]33 sOhioHealthaPTT Coag (Bld) [Time]33 tKeipii65-72QnutcdyobFulton County Health CenterComment on above:Order Comment: Therapeutic range for APTT's is 68 - 104 secondsPerformed By: #### [id number] ####[facility] [address] [place] [address] Emmanuel Plata M.D. [id number] METABOLIC PANELon 03-15-2025 Anion gap [Moles/Vol]13 mmol/MJhxkyr90-62JqgqqtzprFulton County Health CenterComment on above:Order Comment: [facility] has implemented the eGFR calculation approach that does not have a coefficient for race that conforms to the NKF-ASN Task Force Recommendations.Performed By: #### [id number] #### [facility] [address] [place], [place] [address] Emmanuel Plata M.D. [id number] [Mass/Vol]8.9 mg/dLNormal8.4-10.2RSt. Charles Hospital Comment on above:Order Comment: [facility] has implemented the eGFR calculation approach that does not have a coefficient for race that conforms to the NKF-ASN Task Force Recommendations.Performed By: #### [id number] #### [facility] [address] [place], [place] [address] Emmanuel Plata M.D. [id number] [Moles/Vol]108 mmol/DTuyyfd00-907YjsxngbveFulton County Health Center Comment on above:Order Comment: [facility] has implemented the eGFR calculation approach that does not have a coefficient for race that conforms to the NKF-ASN Task Force Recommendations.Performed By: #### [id number] #### [facility] [address] [place], [place] [address] Emmanuel Plata M.D. [id number] [Mass/Vol]1.12 mg/dLNormal0.80-1.30RiFulton County Health CenterComment on above:Order Comment: [facility] has implemented the eGFR calculation approach that does not have a coefficient for race that conforms to the NKF-ASN Task Force Recommendations.Performed By: #### [id number] #### [facility] [address] [place], [place] [address] Emmanuel Plata M.D. [id number] mL/min/1.73 e5Ylvock>=60RiFulton County Health CenterComment on above:Order Comment: [facility] has implemented the eGFR calculation approach that does not have a coefficient for race that conforms to the NKF-ASN Task Force Recommendations.Result Comment: Estimated GFR was calculated using the 2020 CKD-EPI creatinine equation.Performed By: #### [id number] #### [facility] [address] [place], [place] [address] Emmanuel Plata M.D. [id number] [Mass/Vol]139 mg/dVPmsc97-18McwqqbhekFulton County Health Center Comment on above:Order Comment: [facility] has implemented the eGFR calculation approach that does not have a coefficient for race that conforms to the NKF-ASN Task Force Recommendations.Performed By: #### [id number] #### [facility] [address] [place], [place] [address] Emmanuel Plata M.D. [id number] (Bld) [Moles/Vol]24 mmol/WUcqevi18-63QojqaddcsFulton County Health Center Comment on above:Order Comment: [facility] has implemented the eGFR calculation approach that does not have a coefficient for race that conforms to the NKF-ASN Task Force Recommendations.Performed By: #### [id number] #### [facility] [address] [place], [place] [address] Emmanuel Plata M.D. [id number] [Moles/Vol]3.9 mmol/LNormal3.5-5.1RSt. Charles HospitalComment on above:Order Comment: [facility] has implemented the eGFR calculation approach that does not have a coefficient for race that conforms to the NKF-ASN Task Force Recommendations.Performed By: #### [id number] #### [facility] [address] [place] [address] Emmanuel Plata M.D. [id number] [Moles/Vol]141 mmol/PIkfviv999-912CzbglwyafKettering Health Hamilton Comment on above:Order Comment: [facility] has implemented the eGFR calculation approach that does not have a coefficient for race that conforms to the NKF-ASN Task Force Recommendations.Performed By: #### [id number] #### [facility] [address] [place] [address] Emmanuel Plata M.D. [id number] nitrogen [Mass/Vol]19 mg/dLNormal8-25RiFulton County Health Center Comment on above:Order Comment: [facility] has implemented the eGFR calculation approach that does not have a coefficient for race that conforms to the NKF-ASN Task Force Recommendations.Performed By: #### [id number] #### [facility] [address] [place] [address] Emmanuel Plata M.D. [id number] nitrogen/Creatinine [Mass ratio]17.0 mg/anNzkrql02.0-20.0 [facility] Health HamiltonComment on above:Order Comment: [facility] has implemented the eGFR calculation approach that does not have a coefficient for race that conforms to the NKF-ASN Task Force Recommendations.Performed By: #### [id number] #### [facility] [address] [place] [address] Emmanuel Plata M.D. [id number] metabolic 2000 panelon 46-81-7413Xcuhx gap [Moles/Vol]13 mmol/L 10 - 20 mmol/LOhioHealthCalcium [Mass/Vol]8.9 mg/dL8.4 - 10.2 mg/dLOhioHealth Chloride [Moles/Vol]108 mmol/L98 - 108 mmol/LOhioHealthCreatinine [Mass/Vol]1.12 mg/dL0.80 - 1.30 mg/dLOhioHealthGFR/1.73 sq M.predicted CKD-EPI (S/P/Bld) [Vol rate/Area]64- PINFOhioHealthComment on above:Estimated GFR was calculated using the 2020 CKD-EPI creatinine equation.Glucose [Mass/Vol]139 mg/eTTwyd29 - 99 mg/dLOhioHealthHCO3 [Moles/Vol]24 mmol/L21 - 32 mmol/LOhioHealthInterpretation and review of laboratory resultsAbnormalOhioHealthPotassium [Moles/Vol]3.9 mmol/L3.5 - 5.1 mmol/LOhioHealthSodium [Moles/Vol]141 mmol/L135 - 145 mmol/L OhioHealthUrea nitrogen [Mass/Vol]19 mg/dL8 - 25 mg/dLOhioHealthUrea nitrogen/Creatinine [Mass ratio]17 mg/mg10.0 - 20.0Oh[facility] has implemented the eGFR calculation approach that does not have a coefficient for race that conforms to the NKF-ASN Task Force Recommendations.[facility] 14-26-8368LTXK NRBC0.0 %NormalRiTrinity Health System Twin City [facility] Center HospitalComment on above:Performed By: #### [id number] #### [facility] [address] [place], [place] [address] Emmanuel Plata M.D. [id number] NRBC ABS COUNT0.00 K/mcLNormal0.00-0.00RiFulton County Health CenterComment on above:Performed By: #### [id number] #### [facility] [address] [place], [place] [address] Emmanuel Plata M.D. [id number] distribution width (RBC) [Ratio]13.4 %Gvhmtj30.6-14.8 [facility] HamiltonComment on above:Performed By: #### [id number] #### [facility] [address] [place], [place] [address] Emmanuel Plata M.D. [id number] (Bld) [Volume fraction]34.9 %Low41.0-53.0RiTrinity Health System Twin City Medical Center HospitalComment on above:Performed By: #### [id number] #### [facility] [address] [place] [address] Emmanuel Plata M.D. [id number] (Bld) [Mass/Vol]11.7 g/dLLow13.5-17.5RiTrinity Health System Twin [facility] Center HospitalComment on above:Performed By: #### [id number] #### [facility] [address] [place] [address] Emmanuel Plaat M.D. [id number] (RBC) [Entitic mass]30.4 gcBkpgpn15.0-34.0RiTrinity Health System Twin [facility] Center HospitalComment on above:Performed By: #### [id number] #### [facility] [address] [place] [address] Emmanuel Plata M.D. [id number] (RBC) [Entitic vol]90.6 sZYxenea21.0-100.0RiTrinity Health System Twin [facility] Center HospitalComment on above:Result Comment: Repeated AND verifiedPerformed By: #### [id number] #### [facility] [address] [place] [address] Emmanuel Plata M.D. [id number] CORPUSCULAR HEMOGLOBIN CONC33.5 g/eYWiibwm95.0-37.0RiTrinity Health System [facility] Center HospitalComment on above:Result Comment: Repeated AND verified Performed By: #### [id number] #### [facility] [address] [place], [place] [address] Emmanuel Plata M.D. [id number] mean volume (Bld) [Entitic vol]9.9 fLNormal9.4-12.4RiversBlanchard Valley [facility] System [facility] HospitalComment on above:Performed By: #### [id number] #### [facility] [address] [place] [address] Emmanuel Plata M.D. [id number] (Bld) [#/Vol]144 10*3/lRHgi556-499FuwcknxyeFulton County Health CenterComment on above:Performed By: #### [id number] #### [facility] [address] [place], [place] [address] Emmanuel Plata M.D. [id number] (Bld) [#/Vol]3.85 10*6/uLLow4.50-5.90[facility] Comment on above:Performed By: #### [id number] #### [facility] [address] [place], [place] [address] Emmanuel Plata M.D. [id number] (Bld) [#/Vol]3.23 10*3/uLLow4.50-11.00[facility] Comment on above:Performed By: #### [id number] #### [facility] [address] [place], [place] [address] Emmanuel Plata M.D. [id number] panel Auto (Bld)on 01-30-2803Dutjkctyxcm distribution width (RBC) [Entitic vol]13.4 %11.6 - [...] 10*6/uLLowOhioHealthWBC (Bld) [#/Vol]3.23 10*3/uLLowOhioHealth OhioHealthECG 12 Leadon 01-04-0866Aezmrs Oaxl15ZPWCewkVplpkkG Pvtp46mijneqe OhioHealthP-R Olgyvthx374 msOhioHealthQ-T Ffdyhxwh563 msOhioHealthQRS Hssjiich41 msOhioHealthQTC Calculation (Bezet)470 msOhioHealthR Ovow96zanexvrKnfzMejsprT Iczz10egfuiygQisgBavhweLqgdthfpcty Iikc25RVXBvtoHfxnpkTnsmm rhythm with Premature supraventricular complexes Otherwise normal ECG Confirmed by OTILIO MONTOYA M.D. ([id number]) on 03/15/2025 6:58:39 AMMUSEOhioHealth HEMOGLOBIN AND HEMATOCRITon 43-95-0296Bzijuqmxoo (Bld) [Volume fraction]31.0 % Low41.0-53.0RiFulton County Health CenterComment on above:Performed By: #### [id number] #### [facility] [address] [place] [address] Emmanuel Plata M.D. [id number] (Bld) [Mass/Vol]12.4 g/dLLow13.5-17.5RiFulton County Health CenterComment on above:Performed By: #### [id number] #### [facility] [address] [place] [address] Emmanuel Plata M.D. [id number] and Hematocrit panel (Bld)on 88-80-0228Htsmdlutum (Bld) [Volume fraction]31 %Low41.0 - 53.0 %OhioHealthHemoglobin (Bld) [Mass/Vol]12.4 g/dLLow13.5 - 17.5 g/dLOhioHealthInterpretation and review of laboratory results AbnormalOhioHealthOhioHealthMAGNESIUM LEVELon 86-67-0928Xzsdcuvcn [Mass/Vol]2.2 mg/dLNormal1.6-2.4[facility] Surgical HospitalComment on above:Performed By: #### [id number] #### [facility] [address] [place] [address] Emmanuel Plata M.D. [id number] 35-40-8420Uwnoliluc [Mass/Vol]2.2 mg/dL1.6 - 2.4 mg/dL OhioWooster Community HospitalMagnesium [Mass/Vol]on 36-63-0786Nngjqfftxtkptj and review of laboratory resultsNormalOhioHealthNo Panel Informationon 88-17-8865VuvyFkdqag Repeat EKGon 33-68-4182Ixeoko Qbqk09HMDXjvoKuwuhnI-N Ocmwuqwd175 msOhioHealthQ-T Orosijvp422 msOhioHealthQRS Shnxusuq14 msOhioHealthQTC Calculation (Bezet)502 msOhioHealthR Jyyj73njvynkvNkdeHdakcdH Fzov42gmxnizeFuzfBskkwaOvyjdnyywvx Rate93 BPMOhioHealthSinus rhythm with frequent Premature ventricular complexes Prolonged QT Abnormal ECG Confirmed by OTILIO MONTOYA M.D. ([id number]) on 03/15/2025 7:01:22 AMMUSEOhioHealthaPTT Coag (Bld) [Time]on 22-45-3262Lfoowzeesdjakz and review of laboratory results NormalOhioHealthTherapeutic range for APTT's is 68 - 104 secondsOkioKettering Health Springfield metabolic 1998 panelOrdered By: Regina Dillon on 50-66-0689Zpfsc gap [Moles/Vol]16 mmol/L10 - 20 mmol/LOhioHealthChloride [Moles/Vol]102 mmol/L 98 - 108 mmol/LOhioHealthCreatinine [Mass/Vol]1.12 mg/dL0.80 - 1.30 mg/dL [facility]/1.73 sq M.predicted CKD-EPI (S/P/Bld) [Vol rate/Area]64- PINF OhioHealthComment on above:Estimated GFR was calculated using the 2020 CKD-EPI creatinine equation.Glucose [Mass/Vol]100 mg/wQDsii28 - 99 mg/dLOhioHealthHCO3 [Moles/Vol]25 mmol/L21 - 32 mmol/LOhioHealthInterpretation and review of laboratory resultsAbnormalOhioHealthPotassium [Moles/Vol]3.8 mmol/L3.5 - 5.1 mmol/LOhioHealthSodium [Moles/Vol]139 mmol/L135 - 145 mmol/LOhioHealthUrea nitrogen [Mass/Vol]20 mg/dL8 - 25 mg/dLOhioHealthUrea nitrogen/Creatinine [Mass ratio]17.9 mg/mg10.0 - 20.0OhCent[facility] has implemented the eGFR calculation approach that does not have a coefficient for race that conforms to the NKF-ASN Task Force Recommendations.[facility] Auto Differentialon 76-07-3529Lxevmywly (Bld) [#/Vol]0.02 10*3/uL OhioHealthBasophils/100 WBC (Bld)0.6 %New YorkHealthEosinophils (Bld) [#/Vol]0.12 10*3/uLOhioHealthEosinophils/100 WBC (Bld)3.4 %[facility] HospitalErythrocyte distribution width (RBC) [Entitic vol]13.5 %11.6 - 14.8 %[facility] HospitalHematocrit (Bld) [Volume fraction]39.3 %Low41.0 - 53.0 %[facility] HospitalHemoglobin (Bld) [Mass/Vol]13.2 g/dLLow13.5 - 17.5 g/dLWilson Memorial HospitalImmature granulocytes (Bld) [#/Vol]0.01 10*3/uLOhioHealthImmature granulocytes/100 WBC (Bld)0.3 %[facility] Comment on above:The IG parameter is the percentage of metamyelocytes, myelocytes and promyelocytes. An immature granulocyte count (IG) of 1% or more suggests the possibility of infection, an IG count of 3% is very likely related to an infection.Interpretation and review of laboratory resultsAbnormal OhioHealthLymphocytes (Bld) [#/Vol]0.65 10*3/uLLowOhioHealthLymphocytes/100 WBC (Bld)18.6 %OhioHealthMCH (RBC) [Entitic mass]30.4 pg26.0 - 34.0 pgOhioHealthMCHC [...] (Bld) [#/Vol]3.5 10*3/uLLowOhioHealth OhioHealthCBC WITH AUTO DIFFERENTIALon 43-68-2641AMXZ NRBC0.0 %NormalRiFulton County Health CenterComment on above:Performed By: #### [id number] #### [facility] [address] [place], [place] [address] Emmanuel Plata M.D. [id number] NRBC ABS COUNT0.00 K/mcLNormal0.00-0.00[facility] Confucianist HospitalComment on above:Performed By: #### 52902 #### [facility] [address] [place] [address] Emmanuel Plata M.D. [id number] ABSOLUTE COUNT0.02 K/mcLNormal0.00-0.30[facility]ucianist HospitalComment on above:Performed By: #### [id number] #### [facility] [address] [place] [address] Emmanuel Plata M.D. [id number]/100 WBC (Bld)0.6 %NormalRist. joseph health college station hospitalide Confucianist HospitalComment on above:Performed By: #### [id number] #### [facility] [address] [place] [address] Emmanuel Plata M.D. [id number] (Bld) [#/Vol]0.12 10*3/uLNormal0.00-0.50[facility]ucianist HospitalComment on above:Performed By: #### [id number] #### [facility] [address] [place] [address] Emmanuel Plata M.D. [id number]/100 WBC (Bld)3.4 %NormalRiTrinity Health System [facility] Hospital Comment on above:Performed By: #### [id number] #### [facility] [address] [place], [place] [address] Emmanuel Plata M.D. [id number] distribution width (RBC) [Ratio]13.5 %Ywjybz25.6-14.8 [facility] HospitalComment on above:Performed By: #### [id number] #### [facility] [address] [place], [place] [address] Emmanuel Plata M.D. [id number] (Bld) [Volume fraction]39.3 %Low41.0-53.0RiTrinity Health System Twin [facility] HospitalComment on above:Performed By: #### [id number] #### [facility] [address] [place], [place] [address] Emmanuel Plata M.D. [id number] (Bld) [Mass/Vol]13.2 g/dLLow13.5-17.5RiFulton County Health CenterComment on above:Performed By: #### [id number] #### [facility] [address] [place] [address] Emmanuel Plata M.D. [id number] ABSOLUTE0.01 K/mcLNormal0.00-0.30RiFulton County Health Center Comment on above:Performed By: #### [id number] #### [facility] [address] [place] [address] Emmanuel Plata M.D. [id number] PERCENT0.30 %NormalRiFulton County Health CenterComment on above: Result Comment: The IG parameter is the percentage of metamyelocytes, myelocytes and promyelocytes.An immature granulocyte count (IG) of 1% or more suggests the possibility of infection, an IG countof 3% is very likely related to an infection.Performed By: #### [id number] #### [facility] [address] [place] [address] Emmanuel Plata M.D. [id number] (Bld) [#/Vol]0.65 10*3/uLLow0.90-4.00RiFulton County Health CenterComment on above:Performed By: #### [id number] #### [facility] [address] [place] [address] Emmanuel Plata M.D. [id number]/100 WBC (Bld)18.6 %[facility] Comment on above:Performed By: #### [id number] #### [facility] [address] [place], [place] [address] Emmanuel Plata M.D. [id number] (RBC) [Entitic mass]30.4 ieUfltev45.0-34.0RiFulton County Health CenterComment on above:Performed By: #### [id number] #### [facility] [address] [place] [address] Emmanuel Plata M.D. [id number] (RBC) [Entitic vol]90.6 gYAryksz29.0-100.0RiTrinity Health System [facility] HospitalComment on above:Performed By: #### [id number] #### [facility] [address] [place] [address] Emmanuel Plata M.D. [id number] CORPUSCULAR HEMOGLOBIN CONC33.6 g/zRVanupu89.0-37.0RiTrinity Health System [facility] HospitalComment on above:Performed By: #### [id number] #### [place] [address] Emmanuel Plata M.D. [id number] (Bld) [#/Vol]0.81 10*3/uLNormal0.30-0.90RiTrinity Health System [facility] HospitalComment on above:Performed By: #### [id number] #### [facility] [address] [place] [address] Emmanuel Plata M.D. [id number]/100 WBC (Bld)23.1 %NormalRiTrinity Health System [facility] HospitalComment on above:Performed By: #### [id number] #### [place] [address]Nessa Plata M.D. [id number] ABSOLUTE COUNT1.89 K/mcLNormal1.70-7.00RiFulton County Health CenterComment on above:Performed By: #### [id number] #### [facility] [address] [place], [place] [address] Emmanuel Plata M.D. [id number]/100 WBC (Bld)54.0 %NormalGuernsey Memorial Hospital Hospital Comment on above:Result Comment: Peripheral smear reviewed manuallyPerformed By: #### [id number] #### [facility] [address] [place] [address] Emmanuel Plata M.D. [id number] mean volume (Bld) [Entitic vol]9.3 fLLow9.4-12.4RiversMercy Health – The Jewish HospitalComment on above:Performed By: #### [id number] #### [facility] [address] [place] [address] Emmanuel Plata M.D. [id number] (Bld) [#/Vol]173 10*3/aYGikodd956-661EvynxaokbFulton County Health CenterComment on above:Performed By: #### [id number] #### [facility] [address] [place] [address] Emmanuel Plata M.D. [id number] (Bld) [#/Vol]4.34 10*6/uLLow4.50-5.90RiFulton County Health Center Comment on above:Performed By: #### [id number] #### [facility] [address] [place], [place] [address] Emmanuel Plata M.D. [id number] (Bld) [#/Vol]3.50 10*3/uLLow4.50-11.00[facility] Comment on above:Performed By: #### [id number] #### [facility] [address] [place], [place] [address] Emmanuel Plata M.D. [id number] 7on 25-11-5882Jtiax gap [Moles/Vol]16 mmol/DSkimvf39-40YhnlovdsdFulton County Health CenterComment on above:Order Comment: [facility] has implemented the eGFR calculation approach that does not have a coefficient for race that conforms to the NKF-ASN Task Force Recommendations.Performed By: #### [id number] #### [facility] [address]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 NOTENormalQuest DiagnosticsComment on above:Result Comment: CULTURE, URINE, ROUTINE Micro Number: [id number] Test Status: Final Specimen Source: Urine Specimen Quality: Adequate Result: No GrowthPerformed By: #### 395 #### [facility] [address], [address] [place], [place] [address] Dress Cap Maker: Gene HUFFSA, TOTALon 01-63-5090JPH, TOTAL<0.04Normal< OR = 4.00Quest DiagnosticsComment on above:Result [...] absence of disease.Performed By: #### 5363 #### [facility] [address], [address] [place], [place] [address] Dress Cap Maker: Gene Liang MDUrinalysis macro (dipstick) panel (U)on 89-68-1707Jhadrsngd, UANegativeNegative - 4(70) +++ mg/dLNOMS HealthcareBlood, UANegativeNegative [...] - 12 mg/dLNOMS HealthcareNOMS Healthcare Office Visiton 80-06-2227Druket-up [id number] Tristin Powell E 1940 M Date Provider Department Center 12/18/2024 ELIEZER MIXON Family History Problem Relation Age of Onset Coronary artery disease Other Hyperlipidemia Other Hypertension Other Family Status - Relation Status Age at Other Level of Service:61647 IN OFFICE/OUTPATIENT ESTABLISHED LOW MDM 20 [facility] HospitalUS ankle/arm indiceson 11-40-8471GW ankle/arm indicesBrecksville [facility] [address] [place] [address] Ultrasound Report Signed Patient: Tristin Powell MR#: [id number] : 1940 Acct:[id number] Age/Sex: 84 / M ADM Date: 07/29/24 Loc: [facility] Room: Type: [facility] Attending Dr: Cristian Beaver MD Ordering Provider: [...] Cristian Beaver M.D.07/29/2024 11:33 AM Dictation Location: [place] [address] Tech: Viviana Stewart Transcribed By: VICENTE 07/29/24 1133 Dictated By: Cristian Beaver MD 07/29/24 1132 Signed By: 07/29/24 1133ConcepciónCommunity Health Physician GroupUS arterial duplex LE LTon 30-40-0290VR arterial duplex LE LTBrecksville VA / [facility]ille [facility] [address] [place], [place] [address] Ultrasound Report Signed Patient: Tristin Powell MR#: [id number] : 1940 Acct:[id number] Age/Sex: 84 / M ADM Date: 07/29/24 Loc: [facility] Room: Type: REG CLI Attending Dr: Cristian [...] Cristian Beaver M.D.07/29/2024 11:35 AM Dictation Location: [place] [address] Tech: Gaby Castro Transcribed By: VICENTE 07/29/24 1135 Dictated By: Cristian Beaver MD 07/29/24 1133 Signed By: 07/29/24 1135ConcepciónCommunity Health Physician GroupUS carotid doppler BIon 10-11-0843PP carotid doppler [facility] Vascular [address] [place], [place] [address] Ultrasound Report Signed Patient: Tristin Powell MR#: [id number] : 1940 Acct:[id number] Age/Sex: 84 / M ADM Date: 07/29/24 Loc: [facility] Room: Type: REG CLI Attending Dr: Cristian [...] Cristian Beaver M.D.07/29/2024 11:31 AM Dictation Location: [place] [address] Tech: Gaby Castro Transcribed By: VICENTE 07/29/24 1131 Dictated By: Cristian Beaver MD 07/29/24 1130 Signed By: 07/29/24 1131[facility] Physician GroupOffice Visiton 95-90-4299Wavctk- up [id number] Tristin Powell 1940 M Date Provider Department Center 07/22/2024 ELIEZER MIXON BENOIT [place] Family History Problem Relation Age of Onset Coronary artery disease Other Hyperlipidemia Other Hypertension Other Family Status - Relation Status Age at Other Level of Service:82178 IN OFFICE/OUTPATIENT ESTABLISHED LOW MDM 20 [facility]36on [id number] for patient to return my call.[facility]36on 09-02-551672Xjifdv let him know his ECHO looked okay. Labs showed some mild elevation in inflammatory labs. Is he still experiencing chest pains? If so, we can try to start him on something short term to help. Thanks!NormalGood Samaritan HospitalTelephoneon [id number] Tristin Powell 1940 M Date Provider Department Center 07/17/2024 RUSSEL ADAIR Meghan Neftali Family History Problem Relation Age of Onset Coronary artery disease Other Hyperlipidemia Other Hypertension Other Family Status - Relation Status Age at OtherNormalUniversMartins Ferry HospitalC-REACTIVE PROTEIN, CARDIACon 69-78-7466B-REACTIVE PROTEIN, CARDIAC9.50 mg/LAbnormal0.00 - 3.00 mg/LNOMS HealthcareComment on above:Relative Risk for Future Cardiovascular Event Low <1.00 Average 1.00 - 3.00 High >3.00 Performed at: - [facility] [address] [id number] Animal Cruelty Investigator: Jasper Jean Baptiste PhD, Phone: [phone] Interpretation and review of laboratory resultsAbnoAurora West Allis Memorial Hospital BASIC METABOLIC PANELon 63-85-0026Xxflq gap [Moles/Vol]15.1 mmol/LNOMS [facility] County HospitalCalcium [Mass/Vol]8.9 mg/dL8.5 - 10.1 mg/dLGolden Valley Memorial Hospital Chloride [Moles/Vol]108 mmol/LHigh98 - 107 mmol/LNOMS HealthcareCO2 [Moles/Vol] 27.3 mmol/L21.0 - 32.0 mmol/LNOMS HealthcareCreatinine [Mass/Vol]1.32 mg/dLHigh 0.70 - 1.30 mg/dLNOSt. Joseph Medical CenterGFR/1.73 sq M.predicted CKD-EPI (S/P/Bld) [Vol rate/Area]>60>=60 mL/min/1.73m [address] [place], [place] [address]Glucose [Mass/Vol]94 mg/dL74 - 106 mg/dLGolden Valley Memorial HospitalInterpretation and review of laboratory resultsAbSelect Specialty Hospital-FlintPotassium [Moles/Vol]4.4 mmol/L3.5 - 5.1 mmol/LNBothwell Regional Health Center Sodium [Moles/Vol]146 mmol/NOule581 - 145 mmol/LNBothwell Regional Health CenterTBH EGFR-NON AF SVGXEIFQ22Hdu>=60 mL/min/1.73m 2NBothwell Regional Health CenterUrea nitrogen [Mass/Vol]15 mg/dL 7.0 - 18.0 mg/dLGolden Valley Memorial HospitalUrea nitrogen/Creatinine [Mass ratio]11.4 mg/mg [facility] InstituteYNSummerville Medical Center CBC WITH AUTO DIFFon 07-11-2024 Erythrocyte distribution width (RBC) [Ratio]13.9 %11.0 - 15.0 %[facility] Hematocrit (Bld) [Volume fraction]40.9 %Low42.0 - 54.0 %[facility] Hemoglobin (Bld) [Mass/Vol]13.9 g/dLLow14.0 - 18.0 g/dLBarnes-Jewish HospitalH (RBC) [Entitic mass]31.1 pg25.9 - 34.0 pgBarnes-Jewish HospitalHC (RBC) [Mass/Vol]34 g/dL 29.9 - 35.2 g/dLBarnes-Jewish HospitalV (RBC) [Entitic vol]91.5 fL80.0 - 94.0 fLNOMS HealthcarePlatelet mean volume (Bld) [Entitic vol]9.5 fL9.5 - 13.5 fLNOMS HealthcareTBH GNE283JFYB HealthcareTBH RBC4.47LowNOMS HealthcareTBH WBC3.3Low NOMS HealthcareALL SED RATEon 76-54-9554WTD SED OCXA23XFSZTUQT Healthcare CLINISYNCNOMS HealthcareCARD ECHO LIMITED STUDYon 09-93-4126[place] [address] Cardiology Report Signed Patient: TRISTIN POWELL MR#: [id number] : 1940 Acct:[id number] Age/Sex: 84 / M ADM Date: 07/11/24 Loc: LAB Attending Dr: RUSSEL VALLEJO APRN Ordering Physician: RUSSEL VALLEJO APRN Date of Service: 07/11/24 Procedure(s): CA echo limited Accession Number(s): [id number] cc: FLASH LOVELACE ; RUSSEL VALLEJO APRN Patient Name: TRISTIN POWELL MR#: [id number] : 1940 Exam Date: 07/11/2024 Ordering Doctor: RUSSEL VALLEJO PEOPLESOFT PROGRAMMER ECHOCARDIOGRAM REPORT PROCEDURE: CA ECHO LIMITED INDICATIONS: [...] Pressure: 94.58 ml, 94.58 ml Dictated by: Eliezer Carvalho M.D. on 07/11/2024 at 21:17 Approved by: Eliezer Carvalho M.D. on 07/11/2024 at 21:20 Dictated By: ELIEZER CARVALHO Signed By: 07/11/242121 DD/ 19 TD/TT: Metal Pourer:TBHRadiology, Radiologist, - 07/11/2024 [place] [address] Cardiology Report Signed Patient: TRISTIN POWELL MR#: [id number] : 1940 Acct:[id number] Age/Sex: 84 / M ADM Date: 07/11/24 Loc: LAB Attending Dr: RUSSEL VALLEJO APRN Ordering Physician: RUSSEL VALLEJO APRN Date of Service: 07/11/24 Procedure(s): CA echo limited Accession Number(s): [id number] cc: FLASH LOVELACE ; RUSSEL VALLEJO APRN Patient Name: TRISTIN POWELL MR#: [id number] : 1940 Exam Date: 07/11/2024 Ordering Doctor: RUSSEL VALLEJO CNP ECHOCARDIOGRAM REPORT PROCEDURE: CA ECHO LIMITED INDICATIONS: [...] Pressure: 94.58 ml, 94.58 ml Dictated by: Eliezer Carvalho M.D. on 07/11/2024 at 21:17 Approved by: Eliezer Carvalho M.D. on 07/11/2024 at 21:20 Dictated By: ELIEZER CARVALHO Signed By: 07/11/242121 DD/ 19 TD/TT: Metal Pourer: JAE HealthcareRadiology Study observation (narrative)[facility] HealthcareCARD ECHO LIMITED STUDYOrdered By: Radiologist Radiology on 25-89-7452MMMNGolden Valley Memorial Hospital Work Phone: mhpt DIFFERENTIALon 33-69-0953QENTHUJOH ABS MANUAL0 NOMS HealthcareBASOPHILS PERCENT MANUAL0 %Low0.2 - 2.0 %[facility] Healthcare Eosinophils (Bld) [#/Vol]0.13 10*3/uLNOMS HealthcareEOSINOPHILS PERCENT MANUAL4 %0.9 - 7.0 %NOMS HealthcareLymphocytes (Bld) [#/Vol]0.59 10*3/uLLowNOMS HealthcareLYMPHOCYTES PERCENT WBDAAG30 %Low20.5 - 60.0 %NOMS HealthcareMonocytes (Bld) [#/Vol]0.52 10*3/uLNOMS HealthcareMONOCYTES PERCENT CORAAH79 %High1.7 - 12.0 %NOMS HealthcareSEGMENTED NEUT ABSOLUTE MANUAL2.04NOMS HealthcareSEGMENTED NEUTROPHILS % FXDDHZ5268.0 - 75.0NOMO HealthcareNo Panel Informationon 20-94-8673Bdkutbpugxdpbl and review of laboratory resultsAbnoPenn State Health Rehabilitation Hospital CLINISYNCLDS HOSPITAL HealthcareHPon 90-21-4265RBHI Cardiology Interval Pre-procedural H&P H&P reviewed. The [...] were addressed and answered. Mabel Pino MD Continuous Improvement Intern - PGY6 [facility] Tristin Powell is a 84 y.o. year old male patient being seen for 6 mo follow up CAD, PAD, AAA, HTN, and HLD. Had lipid panel Sep, 2023. He is now seeing vascular surgery in [place], Dr. Beaver. Problem List Patient Active Problem List Diagnosis Abdominal pain Chest pain Aortic valve regurgitation Mitral valve regurgitation Avascular necrosis of bone of hip (CMS/HCC) Community acquired pneumonia of left lower lobe of lung Contusion Hematoma of arm, left, initial encounter Coronary artery disease involving coronary bypass graft of umkumiut heart without angina pectoris Coronary artery disease involving umkumiut coronary artery of umkumiut heart without angina pectoris Coronary atherosclerosis Critical [...] instent restenosis. He then underwent CABG at Counts include 234 beds at the [facility] in 2017 (CHAVEZ to diagonal, [...] ECHO that could be (more content not included)...[facility] Health InstituteNURSNOTEon 35-42-1993VMBQQJAGOdhiq Cole called stating he had a heart cath yesterday and he is having chest pain when he takes a deep breath and when he leans back. Chest pain is not severe. He asked if this was normal. Tia Vallejo CNP was notified. Per Tia Vallejo CNP. Lab orders of CBC, BMP, ESR and CRP. Limited Echo for chest pain R/O pericarditis. Notified [facility] to have echo and labs done at [place]. Called Tristin Powell explaining need for echo and labs. Instructed to go to ER if chest pain worsens.[facility] Health InstituteALL BASIC METABOLIC PANELon 95-78-3291Hxwzr gap [Moles/Vol]13.4 mmol/LNOMS HealthcareCalcium [Mass/Vol]9.8 mg/dL8.5 - 10.1 mg/dLNOMO HealthcareChloride [Moles/Vol]106 mmol/L 98 - 107 mmol/LNOMS HealthcareCO2 [Moles/Vol]27.4 mmol/L21.0 - 32.0 mmol/LNOMS HealthcareCreatinine [Mass/Vol]1.33 mg/dLHigh0.70 - 1.30 mg/dLNOSt. Joseph Medical Center GFR/1.73 sq M.predicted CKD-EPI (S/P/Bld) [Vol rate/Area]>60>=60 mL/min/1.73m 2 NOMS HealthcareGlucose [Mass/Vol]110 mg/hBYnmk43 - 106 mg/dLNOMO Healthcare Interpretation and review of laboratory resultsAbnormalNOMS HealthcarePotassium [Moles/Vol]4.8 mmol/L3.5 - 5.1 mmol/LNOMS HealthcareSodium [Moles/Vol]142 mmol/L 136 - 145 mmol/LNOMS HealthcareTBH EGFR-NON AF HOWSDQGM52Aka>=60 mL/min/1.73m 2 NOMS HealthcareUrea nitrogen [Mass/Vol]16 mg/dL7.0 - 18.0 mg/dLNOMO Healthcare Urea nitrogen/Creatinine [Mass ratio]12 mg/mgNOMO HealthcareCLINISYNCNOMS HealthcareOrders Onlyon 84-87-9703Vgqkkq [id number] Tristin Powell 1940 M Date Provider Department Center 07/02/2024 Rodney-MAIA YE [facility] V[facility] LAB MD HeartVAS Family History Problem Relation Age of Onset Coronary artery disease Other Hyperlipidemia Other Hypertension Other Family Status - Relation Status Age at OtherNormalUniversacmc healthcare system gl[facility] Medical CenterOrders Onlyon 65-52-2168Oslzbq [id number] Tristin Powell 1940 M Date Provider Department Center 06/11/2024 Jenanie-RUSSEL VALLEJO BENOIT [facility] Family History Problem Relation Age of Onset Coronary artery disease Other Hyperlipidemia Other Hypertension Other Family Status - Relation Status Age at OtherNormalUniversity of Methodist Mans[facility] Center36on 04-07-637308Xswdib let him know that I discussed our plan with Dr. Carvalho, recommend proceeding with cardiac cath given the bump in his heart enzymes recently. We want to make sure nothing significant has changed. This will also help with planning any vascular surgery in the future. Thanks![facility] Health InstituteTelephoneon [id number] SherryTristin Hortensia 1940 M Date Provider Department Center 05/31/[address] Family History Problem Relation Age of Onset Coronary artery disease Other Hyperlipidemia Other Hypertension Other Family Status - Relation Status Age at OtherNormalUniversity [facility] Hill[facility]st HospitalOffice Visiton 52-96-7935Bmcryb-up [id number] Tristin Powell 1940 M Date Provider Department Center 05/28/2024 RUSSEL ADAIR Family History Problem Relation Age of Onset Coronary artery disease Other Hyperlipidemia Other Hypertension Other Family Status - Relation Status Age at Other Level of Service:40571 IN OFFICE/OUTPATIENT ESTABLISHED MOD MDM 30 [facility] HospitalALL MAGNESIUMon 19-07-4553Putlvpeoj [Mass/Vol]2.1 mg/dL1.6 - 2.4 mg/dLNOMS HealthcareBasic Metab w/rfx MGon 22-86-4777Iuqfd gap [Moles/Vol]10 mmol/LNormal9-16Wayne HospitalComment on above:Performed By: #### TROPI, CBC, MG, BMPX #### [address] [place] [address] Animal Cruelty Investigator: Mary Astorga MD #### GLYHGB #### [facility] Raise [address] [place] [address] Animal Cruelty Investigator: Kale Orona MDBUN/CRE Agjod97Aoaizi2-82Oqkdz [facility] Comment on above:Performed By: #### TROPI, CBC, MG, BMPX #### [address] [place], [place] [address] Animal Cruelty Investigator: Mary Astorga MD #### GLYHGB #### [place] [id number] Animal Cruelty Investigator: Kale Orona MDCalcium [Mass/Vol]9.3 mg/dLNormal8.6-10.4Wayne HospitalComment on above:Performed By: #### TROPI, CBC, MG, BMPX #### [address] [place] [address] Animal Cruelty Investigator: Mary Astorga MD #### GLYHGB #### [place] [id number] Animal Cruelty Investigator: Kale Orona MDChloride [Moles/Vol]106 mmol/CVbthpw94-219QzaglWayne HospitalComment on above:Performed By: #### TROPI, CBC, MG, BMPX #### [address] [place] [address] Animal Cruelty Investigator: Mary Astorga MD #### GLYHGB #### [place] [id number] Animal Cruelty Investigator: Kale Orona MDCO2 [Moles/Vol]23 mmol/AYdiyak66-05KsblwWayne HospitalComment on above:Performed By: #### TROPI, CBC, MG, BMPX #### [address] [place] [address] Animal Cruelty Investigator: Mary Astorga MD #### GLYHGB #### [place] [id number] Animal Cruelty Investigator: Kale Oorna MDCreatinine [Mass/Vol]1.1 mg/dLNormal0.70-1.20 Wayne HospitalComment on above:Performed By: #### TROPI, CBC, MG, BMPX #### [address] [place] [address] Animal Cruelty Investigator: Mary Astorga MD #### GLYHGB #### [address] [address] Animal Cruelty Investigator: Kale Orona MDGFR/1.73 sq M.predicted among non-blacks MDRD (S/P/Bld) [Vol rate/Area]65 mL/min/{1.73_m2}Normal>60[facility] Comment on above:Result Comment: These results [...] By: #### TROPI, CBC, MG, BMPX #### [address] [place] [address] Animal Cruelty Investigator: Mary Astorga MD #### GLYHGB #### [address] [address] Animal Cruelty Investigator: Kale Orona MDGlucose [Mass/Vol]90 mg/dUSyuwce10-86Ghary[address] [place], [place] [address]Comment on above:Performed By: #### TROPI, CBC, MG, BMPX #### [address] [place] [address] Animal Cruelty Investigator: Mary Astorga MD #### GLYHGB #### [address] [address] Animal Cruelty Investigator: DARIA Lanotassium [Moles/Vol]4.4 mmol/LNormal3.7-5.3 Wayne HospitalComment on above:Performed By: #### TROPI, CBC, MG, BMPX #### [address] [place] [address] Animal Cruelty Investigator: Mary Astorga MD #### GLYHGB #### [address] [address] Animal Cruelty Investigator: JUANITA Lanodium [Moles/Vol]139 mmol/TMiwelz671-588YpfdqWayne HospitalComment on above:Performed By: #### TROPI, CBC, MG, BMPX #### [address] [place] [address] Animal Cruelty Investigator: Mary Astorga MD #### GLYHGB #### [place] [address] Animal Cruelty Investigator: Kale Orona MDUrea nitrogen [Mass/Vol]18 mg/dLNormal8-23MerYale New Haven HospitalComment on above:Performed By: #### TROPI, CBC, MG, BMPX #### [address] [place] [address] Animal Cruelty Investigator: Mary Astorga MD #### GLYHGB #### [place] [address] Animal Cruelty Investigator: Kale Orona MDBrain Natri. Peptideon 88-53-7244Pbpdmpmkcpb peptide B (Bld) [Mass/Vol]980 pg/mLHigh0-450MerYale New Haven HospitalComment on above:Performed By: #### LIPR #### [place] [id number] Animal Cruelty Investigator: OJ LanBCon 65-53-8638Huyqtjvuxzw distribution width (RBC) [Ratio]14.8 %High11.8-14.4Wayne HospitalComment on above:Performed By: #### TROPI, CBC, MG, BMPX #### [address] [place] [address] Animal Cruelty Investigator: Mary Astorga MD #### GLYHGB #### [place] [address] Animal Cruelty Investigator: Kale Orona MDHematocrit (Bld) [Volume fraction]38.8 %Low 40.7-50.3MHolzer HospitalComment on above:Performed By: #### TROPI, CBC, MG, BMPX #### [address] [place] [address] Animal Cruelty Investigator: Mary Astorga MD #### GLYHGB #### [place] [address] Animal Cruelty Investigator: Kale Orona MDHemoglobin (Bld) [Mass/Vol]13.2 g/dLNormal 13.0-17.0Wayne HospitalComment on above:Performed By: #### TROPI, CBC, MG, BMPX #### [address] [place] [address] Animal Cruelty Investigator: Mary Astroga MD #### GLYHGB #### [place] [address] Animal Cruelty Investigator: VINCENT LanCH (RBC) [Entitic mass]30.6 wgFnphoa30.2-33.5 Wayne HospitalComment on above:Performed By: #### TROPI, CBC, MG, BMPX #### [address] [place] [address] Animal Cruelty Investigator: Mary Astorga MD #### GLYHGB #### [place] [address] Animal Cruelty Investigator: VINCENT LanCHC (RBC) [Mass/Vol]34.0 g/qWPvemjw19.4-34.8 Wayne HospitalComment on above:Performed By: #### TROPI, CBC, MG, BMPX #### [address] [place] [address] Animal Cruelty Investigator: Mary Astorga MD #### GLYHGB #### [place] [id number] Animal Cruelty Investigator: VINCENT LanCV (RBC) [Entitic vol]89.8 mZPrdvvb16.6-102.9 Wayne HospitalComment on above:Performed By: #### TROPI, CBC, MG, BMPX #### [address] [place] [address] Animal Cruelty Investigator: Mary Astorga MD #### GLYHGB #### [place] [id number] Animal Cruelty Investigator: Kale Orona MDNRBC Automated0.0 per 100 WBCNormal0.0Wayne HospitalComment on above:Performed By: #### TROPI, CBC, MG, BMPX #### [address] [place] [address] Animal Cruelty Investigator: Mary Astorga MD #### GLYHGB #### [place] [address] Animal Cruelty Investigator: Anthony Lantelet mean volume (Bld) [Entitic vol]9.8 fL Normal8.1-13.5Wayne HospitalComment on above:Performed By: #### TROPI, CBC, MG, BMPX #### [address] [place] [address] Animal Cruelty Investigator: Mary Astorga MD #### GLYHGB #### [place] [id number] Animal Cruelty Investigator: DARIA Lanlatelets (Bld) [#/Vol]153 10*3/yUCbcbns561-454 Wayne HospitalComment on above:Performed By: #### TROPI, CBC, MG, BMPX #### [address] [place], [place] [address] Animal Cruelty Investigator: Mary Astorga MD #### GLYHGB #### [place] [address] [place] [address] Animal Cruelty Investigator: Kale Orona [facility] (d) [#/Vol]4.32 10*6/uLNormal4.21-5.77 Wayne HospitalComment on above:Performed By: #### TROPI, CBC, MG, BMPX #### [address] [place], [place] [address] Animal Cruelty Investigator: Mary Astorga MD #### GLYHGB #### [address] [address] Animal Cruelty Investigator: Kale Orona [facility]DB[facility] ([facility]) [#/Vol]4.0 10*3/uLNormal3.5-11.3MProMedica Fostoria Community Hospital HospitalComment on above:Performed By: #### TROPI, CBC, MG, BMPX #### [address] [place], [place] [address] Animal Cruelty Investigator: Mary Astorga MD #### GLYHGB #### [address] [address] Animal Cruelty Investigator: Kale Orona [facility] TROPONIN Ion 21-93-8252Tevacnkjshldzc and review of laboratory resultsAbnormGuthrie Towanda Memorial HospitalMHPT TROPONIN, HIGH SENS31 ng/LHigh0 - 22 ng/LNOMS HealthcareComment on above:High Sensitivity Troponin values cannot be compared with other Troponin methodologies. HMHP BASIC METABOLIC PANEL REFLEX MGon 82-22-7240Awfmg gap [Moles/Vol]10 mmol/L9 - 16 mmol/LNOMS HealthcareCalcium [Mass/Vol]9.3 mg/dL8.6 - 10.4 mg/dLNOMS HealthcareChloride [Moles/Vol]106 mmol/L98 - 107 mmol/LNOMS HealthcareCO2 [Moles/Vol]23 mmol/L20 - 31 mmol/LNOMS HealthcareCreatinine [Mass/Vol]1.1 mg/dL 0.70 - 1.20 mg/dLNOMO HealthcareGlucose [Mass/Vol]90 mg/dL74 - 99 mg/dLMineral Area Regional Medical CenterPT BUN/CRE APAFS494 - 20NOEllett Memorial HospitalPT EGFR65- PINFGolden Valley Memorial HospitalComment on above: These results are not intended [...] mmol/LNOMS HealthcareUrea nitrogen [Mass/Vol]18 mg/dL8 - 23 mg/dLNOSt. Joseph Medical CenterHemoglobin A1Con 92-37-4979Fowwayq [Mass/Vol]117 mg/dLNormal Wayne HospitalComment on above:Result Comment: The ADA and AACC recommend providing the estimated average glucose result to permit better patient understanding of their HBA1c result.Performed By: #### TROPI, CBC, MG, BMPX #### [address] [place] [address] Animal Cruelty Investigator: Mary Astorga MD #### GLYHGB #### [facility] CenterFirst [facility] [employer] [facility] [address] [place] [address] Animal Cruelty Investigator: Kale Orona MDHbA1c (Bld) [Mass fraction]5.7 %Normal4.0-6.0 Wayne HospitalComment on above:Performed By: #### TROPI, CBC, MG, BMPX #### [facility] [address] [place] [address] [place] [address] Animal Cruelty Investigator: Mary Astorga MD #### GLYHGB #### [facility] [address] [address] [place] [address] Animal Cruelty Investigator: Kale Orona MDLipid Profileon 27-79-9847Cpjzgntwsmf [Mass/Vol] 131 mg/dLNormal0-199Wayne HospitalComment on above:Result Comment: Cholesterol Guidelines: <200 Desirable 200-240 Borderline >240 UndesirablePerformed By: #### LIPR #### [address] [address] Animal Cruelty Investigator: OJ Lanholesterol in HDL [Mass/Vol]41 mg/dLNormal>40 [facility] on above:Result Comment: HDL Guidelines: <40 Undesirable 40-59 Borderline >59 DesirablePerformed By: #### LIPR #### [address] [address] [address] Animal Cruelty Investigator: OJ Lanholesterol in LDL [Mass/Vol]73 mg/dLNormal0-100 [facility] on above:Result Comment: LDL Guidelines: <100 Desirable 100-129 Near to/above Desirable 130-159 Borderline >159 Undesirable Direct (measured) LDL and calculated LDL are not interchangeable tests.Performed By: #### LIPR #### [address] [address] Animal Cruelty Investigator: OJ Lanholesterol in VLDL [Mass/Vol]17 mg/dLNormal [facility] HospitalCommymichigan medical center [facility] on above:Performed By: #### LIPR #### [facility] [employer] [address] [place] [address] Animal Cruelty Investigator: Nelly Lan.total/Cholesterol in HDL [Mass ratio]3.0 {ratio}NormalWayne HospitalCommymichigan medical center [place] on above:Performed By: #### LIPR #### [facility] [employer] [address] [place] [address] Animal Cruelty Investigator: Kale Orona MDTriglyceride [Mass/Vol]85 mg/dLNormal<150[facility] HospitalComment on above:Result Comment: Triglyceride Guidelines: <150 Desirable 150-199 Borderline 200-499 High >499 Very high Based on AHA Guidelines for fasting triglyceride, May 2012.Performed By: #### LIPR #### [facility] [employer] [facility] [place] [address] Animal Cruelty Investigator: Julio Cesar Langnesiumon 44-14-9365Vgrsknhys [Mass/Vol]2.1 mg/dLNormal1.6-2.4Wayne HospitalComment on above:Performed By: #### TROPI, CBC, MG, BMPX #### [address] [place] [address] Animal Cruelty Investigator: Mary Astorga MD #### GLYHGB #### [facility] [address] [place] [address] [phone] Animal Cruelty Investigator: Kale Orona MDNo Panel Informationon 42-42-7857Bkjzotjk Ordering Provider: RAFAELA Ontiveros CNP HOMAMILINCox NorthTroponinon 73-57-3148Ohdmoddd, High Sens28 ng/LHigh0-22Way[facility] HospitalCommymichigan medical center [place] on above:Result Comment: High Sensitivity Troponin values cannot be compared with other Troponin methodologies.Performed By: #### LIPR #### [employer] [address] [place] [address] Animal Cruelty Investigator: Kale Orona MDTrchrisnijose, High Sens31 ng/LHigh0-22Way[facility] HospitalCommymichigan medical center [place] on above:Result Comment: High Sensitivity Troponin values cannot be compared with other Troponin methodologies.Performed By: #### TROPI, CBC, MG, BMPX #### [address] [place] [address] Animal Cruelty Investigator: Mary Astorga MD #### GLYHGB #### [address] [id number] Animal Cruelty Investigator: KALPESH Lan PROTIME/INRon 55-03-3465Oyelhvemkkqtma and review of laboratory resultsBayhealth Hospital, Sussex CampusMHPT INR1.2NBothwell Regional Health Center Comment on above: Therapeutic Range: Moderate Anticoagulant Intensity: INR = 2.0-3.0 High Anticoagulant Intensity: INR = 2.5-3.5 MHPT PROTHROMBIN TIME14.8HRipon Medical CenterOriginal Ordering Provider: RAFAELA Ontiveros CNP [facility] HOSPITALTATIANAMercy Hospital South, formerly St. Anthony's Medical CenterBasic Metab w/rfx MGon 15-11-1572Lgsit gap [Moles/Vol]11 mmol/LNormal9-16Wayne HospitalComment on above:Performed By: #### BMPX, PT, CBC #### [address] [place] [address] Animal Cruelty Investigator: VIV Mark/CRE Yxfhe42Cfghrn3-24Eilib [facility] Comment on above:Performed By: #### BMPX, PT, CBC #### [address] [place], [place] 7[address] Animal Cruelty Investigator: OJ Markalcium [Mass/Vol]9.5 mg/dLNormal8.6-10.4Wayne HospitalComment on above:Performed By: #### BMPX, PT, CBC #### [address] [place], [place] [address]83 Animal Cruelty Investigator: OJ Markhloride [Moles/Vol]105 mmol/PMyyjrk45-562BdocfWayne HospitalComment on above:Performed By: #### BMPX, PT, CBC #### [address] [place], [place] 5[address] Animal Cruelty Investigator: Mary Astorga MDCO2 [Moles/Vol]23 mmol/AAwkbdl53-04SzovfWayne HospitalComment on above:Performed By: #### BMPX, PT, CBC #### [address] [place] [address] Animal Cruelty Investigator: Mary Sturtz, MDCreatinine [Mass/Vol]1.0 mg/dLNormal0.70-1.20Wayne HospitalComment on above:Performed By: #### BMPX, PT, CBC #### [address] [place], [place] [address]3983 Animal Cruelty Investigator: Mary Astorga MDGFR/1.73 sq M.predicted among non-blacks MDRD (S/P/Bld) [Vol rate/Area]73 mL/min/{1.73_m2}Normal>60[facility] Comment on above:Result Comment: These results [...] secretion.Performed By: #### BMPX, PT, CBC #### [address] [place], [place] [address]83 Animal Cruelty Investigator: Mary Astorga MDGlucose [Mass/Vol]96 mg/tGTzodbp68-14ZhhduHolzer HospitalComment on above:Performed By: #### BMPX, PT, CBC #### [address] [place], [place] 8[address]0583 Animal Cruelty Investigator: DARIA Markotassium [Moles/Vol]4.2 mmol/LNormal3.7-5.3MHolzer HospitalComment on above:Performed By: #### BMPX, PT, CBC #### [address] [place] [address] Animal Cruelty Investigator: JUANITA Markodium [Moles/Vol]139 mmol/HZicznm858-685NodvxWayne HospitalComment on above:Performed By: #### BMPX, PT, CBC #### [address] [place], [place] 8[address]28 Animal Cruelty Investigator: Mary Astorga MDUrea nitrogen [Mass/Vol]16 mg/dLNormal8-23Wayne HospitalComment on above:Performed By: #### BMPX, PT, CBC #### [facility] [address] [place], [place] [address] Animal Cruelty Investigator: Jace Mark 48-15-0702Kjgrawwbski distribution width (RBC) [Ratio]14.7 %High11.8-14.4[facility] HospitalComment on above:Performed By: #### LIPR #### [address] [address] Animal Cruelty Investigator: Kale Orona MDHematocrit (Bld) [Volume fraction]40.3 %Low 40.7-50.3[facility] Medical CenterComment on above:Performed By: #### LIPR #### [address] [address] Animal Cruelty Investigator: Kale Orona MDHemoglobin (Bld) [Mass/Vol]13.9 g/dLNormal 13.0-17.0Wayne HospitalComment on above:Performed By: #### LIPR #### [address] [address] Animal Cruelty Investigator: VINCENT LanCH (RBC) [Entitic mass]31.0 fmHqnyid61.2-33.5 [facility] HospitalComment on above:Performed By: #### LIPR #### [address] [address] Animal Cruelty Investigator: VINCENT LanCHC (RBC) [Mass/Vol]34.5 g/vIVnmwjk92.4-34.8 [facility] HospitalComment on above:Performed By: #### LIPR #### [address] [address] Animal Cruelty Investigator: VINCENT LanCV (RBC) [Entitic vol]89.8 jCJfnkpg97.6-102.9 [facility] HospitalComment on above:Performed By: #### LIPR #### [address] [address] Animal Cruelty Investigator: Kale Orona MDNRMERISSA Automated0.0 per 100 WBCNormal0.0[facility] HospitalComment on above:Performed By: #### LIPR #### [place] [address] Animal Cruelty Investigator: Anthony Lanteandrei mean volume (Bld) [Entitic vol]9.8 fL Normal8.1-13.5[facility] HospitalComment on above:Performed By: #### LIPR #### [place] [address] Animal Cruelty Investigator: Cindy Lan (Bld) [#/Vol]154 10*3/vPZfhulk348-904 [facility] HospitalComment on above:Performed By: #### LIPR #### [address] [address] Animal Cruelty Investigator: JUAN CARLOS LanBC (Bld) [#/Vol]4.49 10*6/uLNormal4.21-5.77 [facility] HospitalComment on above:Performed By: #### LIPR #### [address] [address] Animal Cruelty Investigator: DAVY LanBC (Bld) [#/Vol]4.0 10*3/uLNormal3.5-11.3MProMedica Fostoria Community Hospital HospitalComment on above:Performed By: #### LIPR #### [address] [address] Animal Cruelty Investigator: Pablo Lan 24-78-3523FQK Coag (PPP) [Relative time]1.2 {INR}NormalMercy Plum Branch HospitalComment on above:Result Comment: Therapeutic Range: Moderate Anticoagulant Intensity: INR = 2.0-3.0 High Anticoagulant Intensity: INR = 2.5-3.5Performed By: #### BMPX, PT, CBC #### [address] [place], [place] 308[address]83 Animal Cruelty Investigator: OLIVE Mark Coag (PPP) [Time]14.8 sHigh11.7-14.1[facility] HospitalComment on above:Performed By: #### BMPX, PT, CBC #### [address] [place], [place] 84[address] Animal Cruelty Investigator: Mary Astorga MDTroponinon 10-31-2138Maxprnku, High Sens26 ng/L High0-22MerC[facility] Clinic Mercy [facility] HospitalComment on above:Result Comment: High Sensitivity Troponin values cannot be compared with other Troponin methodologies.Performed By: #### TROPI #### [address] [place], [place] [address] Animal Cruelty Investigator: Mary Astorga MDBrain Natri. Peptideon 16-32-3441Nhrgkitptzc peptide B (Bld) [Mass/Vol]729 pg/mLHigh0-450MerCleveland Clinic Mercy Hospital HospitalComment on above:Performed By: #### LIPR #### [facility] [address] [place] [address] Animal Cruelty Investigator: OJ Lan with Diffon 59-86-0546Fin. Basophil0.03 k/uL Normal0.00-0.20MerCleveland Clinic Mercy Hospital HospitalComment on above:Performed By: #### LIPR #### [facility] [address] [place] [address] Animal Cruelty Investigator: Anup Lan.Imm.Granulocyte<0.50Hzhdzz5.00-0.30MerCleveland Clinic Mercy Hospital HospitalComment on above:Performed By: #### LIPR #### [address] [address] Animal Cruelty Investigator: Anup Lan.Neutrophil (Seg)2.22 k/uLNormal1.50-8.10 [facility] HospitalComment on above:Performed By: #### LIPR #### [address] [address] Animal Cruelty Investigator: Kale Orona MDBasophils/100 WBC (Bld)1 %Normal0-2[facility] HospitalComment on above:Performed By: #### LIPR #### [address] [address] Animal Cruelty Investigator: Kale Orona MDEosinophils (Bld) [#/Vol]0.11 10*3/uLNormal 0.00-0.44[facility] HospitalComment on above:Performed By: #### LIPR #### [place] [address] Animal Cruelty Investigator: Kale Orona MDEosinophils/100 WBC (Bld)3 %Normal1-4[facility] HospitalComment on above:Performed By: #### LIPR #### [address] [address] Animal Cruelty Investigator: Kale Orona MDErythrocyte distribution width (RBC) [Ratio]14.7 %High11.8-14.4[facility] HospitalComment on above:Performed By: #### LIPR #### [place] [address] Animal Cruelty Investigator: Kale Orona MDHematocrit (Bld) [Volume fraction]38.8 %Low 40.7-50.3[facility] HospitalComment on above:Performed By: #### LIPR #### [address] [address] Animal Cruelty Investigator: Kale Orona MDHemoglobin (Bld) [Mass/Vol]13.3 g/dLNormal 13.0-17.0[facility] HospitalComment on above:Performed By: #### LIPR #### [place] [address] Animal Cruelty Investigator: Kale Orona MDImmature granulocytes/100 WBC (Bld)1 %Rupi7UufdsKnox Community Hospital HospitalComment on above:Performed By: #### LIPR #### [place] [address] Animal Cruelty Investigator: Kale Orona MDLymphocytes (Bld) [#/Vol]0.61 10*3/uLLow 1.10-3.70[facility] HospitalComment on above:Performed By: #### LIPR #### [place] [address] Animal Cruelty Investigator: Ramon Lanmphocytes/100 WBC (Bld)17 %Ogo97-29Dcrdc [facility] HospitalComment on above:Performed By: #### LIPR #### [place] [address] Animal Cruelty Investigator: VINCENT LanCH (RBC) [Entitic mass]31.0 mySzrijk51.2-33.5 [facility] HospitalComment on above:Performed By: #### LIPR #### [place] [address] Animal Cruelty Investigator: VINCENT LanCHC (RBC) [Mass/Vol]34.3 g/iWFgztmn19.4-34.8 [facility] HospitalComment on above:Performed By: #### LIPR #### [place] [address] Animal Cruelty Investigator: VINCENT LanCV (RBC) [Entitic vol]90.4 vXGxewdv19.6-102.9 [facility] HospitalComment on above:Performed By: #### LIPR #### [address] [address] Animal Cruelty Investigator: Kale Orona MDMonocytes (Bld) [#/Vol]0.59 10*3/uLNormal 0.10-1.20MerC[facility] HospitalComment on above:Performed By: #### LIPR #### [address] [address] Animal Cruelty Investigator: VINCENT Lanonocytes/100 WBC (Bld)17 %High3-12[facility] HospitalComment on above:Performed By: #### LIPR #### [address] [address] Animal Cruelty Investigator: Harish Lanutrophil (Seg)61 %Wgigcw80-12Bynzm [facility] HospitalComment on above:Performed By: #### LIPR #### [place] [address] Animal Cruelty Investigator: Kale Orona MDNRBC Automated0.0 per 100 WBCNormal0.0[facility] HospitalComment on above:Performed By: #### LIPR #### [address] [address] Animal Cruelty Investigator: DARIA Lanlatelet mean volume (Bld) [Entitic vol]9.3 fL Normal8.1-13.5[facility] HospitalComment on above:Performed By: #### LIPR #### [address] [address] Animal Cruelty Investigator: Kale Orona MDPlatelets (Bld) [#/Vol]153 10*3/oIBjzeyq485-212 [facility] HospitalComment on above:Performed By: #### LIPR #### [address] [address] Animal Cruelty Investigator: Kale Orona MDRBC (Bld) [#/Vol]4.29 10*6/uLNormal4.21-5.77 [facility] HospitalComment on above:Performed By: #### LIPR #### [employer] [address] [place] [address] Animal Cruelty Investigator: JUSTIN Lan ([facility]) [#/Vol]3.6 10*3/uLNormal3.5-11.3MHolzer HospitalComment on above:Performed By: #### LIPR #### [employer] [address] [place] [address] Animal Cruelty Investigator: Kale Orona MDCTA CHEST ABDOMEN PELVIS W [...] Signed by: Randall Almaraz MD 05/12/24 Final resultNormalOur Lady of Mercy Hospital - Andersonp Metabolic Profon 33-98-7119Jbigfbd [Mass/Vol]3.8 g/dLNormal3.5-5.2MHolzer HospitalComment on above:Performed By: #### LIPR #### [employer] [address] [place] [address] Animal Cruelty Investigator: Kale Orona MDAlbumin/Glob Ratio1.8Bwfutm6.0-2.5Wayne HospitalComment on above:Performed By: #### LIPR #### [employer] [address] [place] [address] Animal Cruelty Investigator: Kale Orona MDAlkaline Phos92 U/RZxbjpb02-405AttluWayne HospitalComment on above:Performed By: #### LIPR #### [employer] [address] [place] [address] Animal Cruelty Investigator: Kale Orona MDALT [Catalytic activity/Vol]15 U/MCiqbkd25-90 [facility] HospitalComment on above:Performed By: #### LIPR #### [employer] [address] [place] [address] Animal Cruelty Investigator: Kale Orona MDAnion gap [Moles/Vol]11 mmol/LNormal9-16[facility] HospitalComment on above:Performed By: #### LIPR #### [address] [address] Animal Cruelty Investigator: Kale Orona MDAST [Catalytic activity/Vol]24 U/JIkewby84-79 [facility] HospitalComment on above:Performed By: #### LIPR #### [address] [address] Animal Cruelty Investigator: Kale Orona MDBilirubin [Mass/Vol]0.6 mg/dLNormal0.00-1.20 [facility] HospitalComment on above:Performed By: #### LIPR #### [address] [address] Animal Cruelty Investigator: Kale Orona MDBUN/CRE Zqffy92Wqyheu7-14Vffom [facility] Comment on above:Performed By: #### LIPR #### [address] [address] Animal Cruelty Investigator: Kale Orona MDCalcium [Mass/Vol]9.2 mg/dLNormal8.6-10.4[facility]ne HospitalComment on above:Performed By: #### LIPR #### [address] [address] Animal Cruelty Investigator: Kale Orona MDChloride [Moles/Vol]106 mmol/MXkrzze21-032Kavyg [facility] HospitalComment on above:Performed By: #### LIPR #### [facility] [address] [place] [address] Animal Cruelty Investigator: Kale Orona MDCO2 [Moles/Vol]22 mmol/VZiwexc79-62Fdnnu [facility] HospitalComment on above:Performed By: #### LIPR #### [facility] [address] [place] [address] Animal Cruelty Investigator: OJ Lanreatinine [Mass/Vol]1.1 mg/dLNormal0.70-1.20 [facility] HospitalComment on above:Performed By: #### LIPR #### [address] [address] Animal Cruelty Investigator: Kale Orona MDGFR/1.73 sq M.predicted among non-blacks MDRD (S/P/Bld) [Vol rate/Area]69 mL/min/{1.73_m2}Normal>60[facility] Comment on above:Result Comment: These results [...] renal tubular secretion.Performed By: #### LIPR #### [facility] [employer] [address] [place] [address] Animal Cruelty Investigator: Kale Orona MDGlucose [Mass/Vol]127 mg/bDJuou05-37GwldaHolzer HospitalComment on above:Performed By: #### LIPR #### [facility] [address] [place] [address] Animal Cruelty Investigator: DARIA Lanotassium [Moles/Vol]4.6 mmol/LNormal3.7-5.3 [facility] HospitalComment on above:Performed By: #### LIPR #### [facility] [address] [place] [address] Animal Cruelty Investigator: Kale Orona MDProtein [Mass/Vol]6.3 g/dLLow6.6-8.7Wayne HospitalComment on above:Performed By: #### LIPR #### [facility] [employer] [address] [place] [address] Animal Cruelty Investigator: JUANITA Lanodium [Moles/Vol]139 mmol/SHoopnf072-737Yaovp [facility] HospitalComment on above:Performed By: #### LIPR #### [facility] [employer] [address] [place] [address] Animal Cruelty Investigator: Kale Orona MDUrea nitrogen [Mass/Vol]19 mg/dLNormal8-23[facility] HospitalComment on above:Performed By: #### LIPR #### [facility] [address] [place] [address] Animal Cruelty Investigator: Kale Orona MDTroponinon 70-61-5138Uwotdyts, High Sens25 ng/L High0-22Wayne HospitalComment on above:Result Comment: High Sensitivity Troponin values cannot be compared with other Troponin methodologies.Performed By: #### LIPR #### [facility] [address] [place] [address] Animal Cruelty Investigator: Kale Orona MDTroponijose, High Sens26 ng/LHigh0-22[facility] HospitalComment on above:Result Comment: High Sensitivity Troponin values cannot be compared with other Troponin methodologies.Performed By: #### LIPR #### [facility] [address] [place] [address] Animal Cruelty Investigator: ADRIAN Lan CHEST PORTABLEon 87-93-1021NT CHEST PORTABLE EXAMINATION: ONE XRAY VIEW OF [...] Signed by: Elyssa Pino MD 05/12/24 Final resultNormalWayne HospitalOffice Visiton 39-07-9562Gdrjpn-up visit [id number] Tristin Powell Hortensia 1940 M Date Provider Department Center 04/24/2024 RUSSEL DAAIR Teodoro Hennessy Family History Problem Relation Age of Onset Coronary artery disease Other Hyperlipidemia Other Hypertension Other Family Status - Relation Status Age at Other Level of Service:129[address] IN OFFICE/OUTPATIENT ESTABLISHED MOD MDM 30 [facility]cre[facility] 08-99-1672Smwpcjq [id number]#1.00TIFFMercy Health Fairfield HospitalPatient Educationon 71-70-8256Fpcipxt EducationOncology Prostate Cancer The prostate is a [...] under a microscope. This is called the [place] score and the total score can range from 6?10, indicating how likely it is that the cancer will spread (metastasize) to other parts of the body. The higher the score, the greater thelikelihood that the cancer will spread. ? [place] 6 or lower: This indicates that the [...] gland. Like external be (more content not included)...[facility] HospitalProvider Letteron 12-26-2023 Provider Letter FLASH LOVELACE, [address] [place] [id number] Re: TRISTIN POWELL Date of : [address] ALBANIA DIAZ, TRISTIN ALEMAN was evaluated at [facility] 12/26/2023 13:00:00 As this patient has been [...] Thanks! Provider Signature: Brenna Mosquera PA-C Physician Home Health Care Provider [facility] [address] [place] [address] NoTwin City HospitalUrology Office/Clinic Note on 27-70-3887Smbbabo Office/Clinic NoteChief Complaint 1yr PSA HPI Staff [...] E&M of Est. Patient Low 20-29 Min 96925 Urnls Dip Stick Auto w/o Microscopy POC 70942 2. BPH with urinary obstruction (N40.1: Benign prostatic hyperplasia with lower urinary tract symptoms) IPSS 7 (5) QOL 1 Pt is currently taking no bladder/prostate medication and is highly satisfied with overall symptom control. No indication for treatment at this time. Continue to monitor. Ordered: Complex E&M Add on G2211 E&M of Est. Patient Low 20-29 Min 10455 3. Erectile dysfunction (N52.9: Male erectile dysfunction, unspecified) last ov: pt requesting sildenafil 100mg. was on it previously through another provider and worked well. 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 today: pt never called after last ov. no concerns reported today. does not wish to pursue Sildenafil at this time. Ordered: Complex E&M Add on G2211 E&M of Est. Patient Low 20-29 Min 5[address] Other obstructive and reflux uropathy (N13.8: Other obstructive and reflux uropathy) Offered continued scheduled follow up with our clinic vs following up PRN. Pt prefers the latter. We will ensure PCP continues to order annual PSA. Letter sent. Follow-up With When Contact Information JAY CARRANZA, BRENNA Bazan, URL Only if needed [address] [place] [address] Business (1) Additional Instructions: Patient [...] influenza virus vaccine, i (more content not included)...NormalFisher Sinai Hospital Of BaltimoreComment on above:Result Comment: Electronically Signed By: BRENNA MOSQUERA PA-C\Date and Time Signed: 12/25/2412:33 EDTLab Reportson 49-57-1805Fzq [id number]#1.00TIFFNormal Cleveland ClinicAlanine aminotransferase [Enzymatic activity/volume] in Serum or PlasmaOrdered By: Eliezer Carvalho on 11-79-7138LAJ [Catalytic activity/Vol]15 U/L7-52[facility] Children'S HospitalAlbumin [Mass/volume] in Serum or Plasma by Bromocresol green (BCG) dye binding methoOrdered By: Eliezer Carvalho on 90-92-7949Qqxsdpe BCG dye [Mass/Vol]4.0 g/dL3.5-5.7FToledo HospitalAlkaline phosphatase [Enzymatic activity/volume] in Serum or PlasmaOrdered By: Eliezer Carvalho on 37-54-2919ZIN [Catalytic activity/Vol] 72 U/N86-063HbyfkiszhAkron Children'S HospitalAspartate aminotransferase [Enzymatic activity/volume] in Serum or PlasmaOrdered By: Eliezer Carvalho on 24-95-3154UGL [Catalytic activity/Vol]21 U/G12-20NrajmwmedAkron Children'S HospitalBasophils Auto (Bld) [#/Vol]Ordered By: Eliezer Carvalho on 10-17-2023 Basophils (Bld) [#/Vol]0.0 10*3/uL0.0-0.2FToledo Hospital Basophils/100 WBC Auto (Bld)Ordered By: Eliezer Carvalho on 10-17-2023 Basophils/100 WBC (Bld)0.7 %.[facility] Children'S HospitalBilirubin.total [Mass/volume] in Serum or PlasmaOrdered By: Eliezer Carvalho on 10-17-2023 Bilirubin [Mass/Vol]0.7 mg/dL0.3-1.0[facility]'S HospitalCalcium [Mass/volume] in Serum or PlasmaOrdered By: Eliezer Carvalho on 10-17-2023 Calcium [Mass/Vol]9.4 mg/dL8.6-10.3FToledo HospitalCarbon dioxide, total [Moles/volume] in Serum or PlasmaOrdered By: Eliezer Carvalho on 48-85-4779AK0 [Moles/Vol]24.6 mmol/L21.0-31.0[facility] Chloride [Moles/volume] in Serum or PlasmaOrdered By: Eliezer Carvalho on 69-58-2557Pzbrzwxl [Moles/Vol]108 mmol/V83-068CelevcyanAkron Children'S Hospital Cholesterol [Mass/volume] in Serum or PlasmaOrdered By: Eliezer Carvalho on 89-21-5753Lepjdpubnaa [Mass/Vol]142 mg/gA329-537AgtqiuabsAkron Children'S HospitalComment on above:Chol less than 200 mg/dl low riskChol 201-239 mg/dl borderline riskChol 240 mg/dl and greater high riskCholesterol in LDL Calc [Mass/Vol]Ordered By: Eliezer Carvalho on 90-39-4130Xseibadlect in LDL [Mass/Vol]79 mg/dL0-100[facility] Children'S HospitalComment on above:LDL ATP III CLASSIFICATIONLDL less than 100 mg/dL OptimalLDL 100-129 mg/dL Near or above kkkmscaSVI570-159 mg/dL Borderline highLDL 160-189 mg/dL HighLDL greater than 189 mg/dL Very highCholesterol in VLDL Calc [Mass/Vol]Ordered By: Eliezer Carvalho on 62-82-7788Jcmsiggpubo in VLDL [Mass/Vol]21 mg/dLAkron Children'S HospitalCreatinine [Mass/volume] in Serum or PlasmaOrdered By: Eliezer Carvalho on 86-22-0453Xqwxrwefuo [Mass/Vol]1.01 mg/dL0.70-1.30[facility] Children'S HospitalEosinophils Auto (Bld) [#/Vol]Ordered By: Eliezer Carvalho on 64-68-8344Gercjoggdav (Bld) [#/Vol]0.1 10*3/uL0.0-0.45[facility] Children'S HospitalEosinophils/100 WBC Auto (Bld)Ordered By: Eliezer Carvalho on 72-40-9605Dediaxravsi/100 WBC (Bld)3.4 %.[facility] Children'S HospitalErythrocyte distribution width Auto (RBC) [Ratio]Ordered By: Eliezer Carvalho on 84-55-5089Foutxlckvto distribution width (RBC) [Ratio]14.4 % 12.0-14.8[facility]'S HospitalGlobulin Calc (S) [Mass/Vol]Ordered By: Eliezer Carvalho on 24-41-1648Khzqdqvy (S) [Mass/Vol]2.6 g/dLAkron Children'S HospitalGlucose [Mass/volume] in Serum or PlasmaOrdered By: Eliezer Carvalho on 42-88-9511Pelieey [Mass/Vol]82 mg/gE43-887GjfufeoirAkron Children'S HospitalComment on above:ADA recommended reference rangeRandom Glucose Reference Range is dependent on time and content of last meal. Glucose of more than 200 mg/dL in a nonstressed, ambulatory subject supports the diagnosisof Diabetes Mellitus.Hematocrit Auto (Bld) [Volume fraction]Ordered By: Eliezer Carvalho on 94-31-6428Phcddmtfsu (Bld) [Volume fraction]39.3 %38.8-50.0 [facility] HospitalHemoglobin [Mass/volume] in BloodOrdered By: Eliezer Carvalho on 17-69-6038Mtxgabeydc (Bld) [Mass/Vol]13.5 g/dL13.0-17.0 [facility]S HospitalLeukocytes [#/volume] corrected for nucleated erythrocytes in Blood by Automated counOrdered By: Eliezer Carvalho on 12-67-2804DZB corrected for nucl RBC Auto (Bld) [#/Vol]3.5 10*3/uL4.1-10.5 [facility] HospitalLymphocytes Auto (Bld) [#/Vol]Ordered By: Eliezer Carvalho on 48-95-9655Jxppyvczoqb (Bld) [#/Vol]0.8 10*3/uL1.00-4.8 [facility] HospitalLymphocytes/100 WBC Auto (Bld)Ordered By: Eliezer Carvalho on 44-04-1203Nfllflsnody/100 WBC (Bld)22.4 %.[facility]H Auto (RBC) [Entitic mass]Ordered By: Eliezer Carvalho on 16-15-2530GFF (RBC) [Entitic mass]30.9 pg27.5-35.2FToledo HospitalMCHC Auto (RBC) [Mass/Vol]Ordered By: Eliezer Carvalho on 10-42-8977SFMG (RBC) [Mass/Vol]34.3 g/dL32.5-35.6FToledo HospitalMCV Auto (RBC) [Entitic vol]Ordered By: Eliezer Carvalho on 39-42-7419SKJ (RBC) [Entitic vol]90.1 fL83.5-101[facility]'S HospitalMonocytes Auto (Bld) [#/Vol] Ordered By: Eliezer Carvalho on 16-95-7189Rpdkniewu (Bld) [#/Vol]0.6 10*3/uL 0.0-0.8[facility] HospitalMonocytes/100 WBC Auto (Bld)Ordered By: Eliezer Carvalho on 24-09-0775Cmxfnhmtr/100 WBC (Bld)15.8 %.[facility]S HospitalNeutrophils Auto (Bld) [#/Vol]Ordered By: Eliezer Carvalho on 60-83-8011Vbnvqmtuwdi (Bld) [#/Vol]2.0 10*3/uL1.8-7.7FToledo HospitalNeutrophils/100 WBC Auto (Bld)Ordered By: Eliezer Carvalho on 10-17-2023 Neutrophils/100 WBC (Bld)57.7 %.[facility]S HospitalNo Panel InformationOrdered By: Eliezer Carvalho on 30-98-5214Zmyclsphl GFR (CKD-EPI)> 60.0 mL/MinAkron Children'S HospitalPharmacy Creatinine Clearance (Chem N/AFToledo HospitalNucleated erythrocytes [Presence] in Blood by Automated countOrdered By: Eliezer Carvalho on 94-64-7349Fbospjylz RBC Auto Ql (Bld)0.4 /100{WBC}0-0.5FToledo HospitalPlatelet mean volume Auto (Bld) [Entitic vol]Ordered By: Eliezer Carvalho on 40-92-1364Gzwkphwj mean volume (Bld) [Entitic vol]7.8 fL6.6-10.1FToledo Hospital Platelets Auto (Bld) [#/Vol]Ordered By: Eliezer Carvalho on 25-99-5756Izsctrcpg (Bld) [#/Vol]170 10*3/bI857-393JxmdvnpvyAkron Children'S HospitalPotassium [Moles/volume] in Serum or PlasmaOrdered By: Eliezer Carvalho on 10-17-2023 Potassium [Moles/Vol]4.7 mmol/L3.5-5.1FToledo HospitalProtein [Mass/volume] in Serum or PlasmaOrdered By: Eliezer Carvalho on 10-17-2023 Protein [Mass/Vol]6.6 g/dL6.4-8.9[facility] HospitalRBC Auto (Bld) [#/Vol]Ordered By: Eliezer Carvalho on 18-39-5879VYI (Bld) [#/Vol]4.36 10*6/uL 3.90-5.60[facility] Harding Hospitalerum or plasma albumin/globulin mass ratioOrdered By: Eliezer Carvalho on 45-00-0771Rqfjtmg/Globulin [Mass ratio]1.5 {ratio}[facility] Hospitalerum or plasma anion gap determination Ordered By: Eliezer Carvalho on 02-04-1828Qqhrr gap [Moles/Vol]11.1 mmol/L 6.0-15.0[facility] Hospitalerum or plasma high density lipoprotein (HDL) cholesterol measurementOrdered By: Eliezer Carvalho on 47-97-6239Teuxamlroqg in HDL [Mass/Vol]42 mg/vK71-78YnnqhjmhiAkron Children'S HospitalComment on above:HDL CHOL ATP-III CLASSIFICATION Cardiovascular RiskHDL > or equal to 60 mg/dL LOWHDL < 40 mg/dL HIGHSerum or plasma total cholesterol/high density lipoprotein (HDL) cholesterol mass ratOrdered By: Eliezer Carvalho on 04-85-8880Mvdpnzzbjgk.total/Cholesterol in HDL [Mass ratio] 3.4 {ratio}<5.0[facility] Hospitalodium [Moles/volume] in Serum or PlasmaOrdered By: Eliezer Carvalho on 87-52-5189Piftau [Moles/Vol]139 mmol/L 136-145[facility]S HospitalTriglyceride [Mass/volume] in Serum or PlasmaOrdered By: Eliezer Carvalho on 57-91-6552Ohoiikfsipzg [Mass/Vol]105 mg/dL 0-149[facility]S HospitalComment on above:TRIG ATP III CLASSIFICATIONTRIG less than 150 mg/dL NormalTRIG 150-199 mg/dL Borderline highTRIG 200-500 mg/dL High TRIG greater than 500 mg/dL Very highStandard traceable to the Center for Disease Conrtrol and Prevention (CDC) test method. Urea nitrogen [Mass/volume] in Serum or PlasmaOrdered By: Eliezer Carvalho on 30-29-6505Iphk nitrogen [Mass/Vol]15 mg/dL7-[facility] WBC Auto (Bld) [#/Vol]Ordered By: Eliezer Carvalho on 87-83-3856OSH (Bld) [#/Vol]3.5 10*3/uL4.1-10.5FToledo HospitalCreatinine [Mass/volume] in Serum or PlasmaOrdered By: Cristian Beaver on 10-12-2023 Creatinine [Mass/Vol]1.11 mg/dL0.70-1.30[facility] HospitalNo Panel InformationOrdered By: Cristian Beaver on 59-66-4582Mgbrqwclu GFR (CKD-EPI)> 60.0 mL/MinAkron Children'S HospitalPharmacy Creatinine Clearance (Chem64.55[facility]S HospitalUrea nitrogen [Mass/volume] in Serum or PlasmaOrdered By: Cristian Beaver on 70-54-5003Aeil nitrogen [Mass/Vol]18 mg/dL7-[facility]S HospitalPROF CHEM 8 (BAS METB)on 25-53-1895Upken gap [Moles/Vol]10.5 mmol/LNormalHighland District HospitalComment on above:Performed By: #### BMP #### [facility] [address] [place] [address] Dr. Benedict EdmondsonCalcium [Mass/Vol]9.5 mg/dLNormal8.5-10.1[facility] Comment on above:Performed By: #### BMP #### [facility] [address] [place] [address] Dr. Benedict EdmondsonChloride [Moles/Vol]106 mmol/DEiuotm70-879PahHighland District Hospital Comment on above:Performed By: #### BMP #### [facility] [address] [place] [address] Dr. Benedict EdmondsonCO2 [Moles/Vol]28.8 mmol/ZJiggiu94.0-32.0[facility] Comment on above:Performed By: #### BMP #### [facility] [address] [place] [address] Dr. Benedict EdmondsonCreatinine [Mass/Vol]1.28 mg/dLNormal0.70-1.30The [facility] HospitalComment on above:Performed By: #### BMP #### [facility] [address] [place] [address] Dr. Benedict PatelGFR-AF BARBADIAN>60Normal>=60High[facility] District HospitalComment on above:Performed By: #### BMP #### [facility] [address] [place] [address] Dr. Benedict PatelGFR-NON AF FTRNYLOB44 mL/min/1.49y3Srxbqloeel low>=60The [facility] HospitalComment on above:Performed By: #### BMP #### [facility] [address] [place] [address] Dr. Benedict EdmondsonGlucose [Mass/Vol]97 mg/vTXhsjcd48-565WidHighland District Hospital Comment on above:Performed By: #### BMP #### [facility] [address] [place] [address] Dr. Benedict EdmondsonPotassium [Moles/Vol]4.3 mmol/LNormal3.5-5.1The [facility] Comment on above:Performed By: #### BMP #### [facility] [address] [place] [address] Dr. Benedict Galavizdium [Moles/Vol]141 mmol/LScvdls986-363Qpl [facility] Comment on above:Performed By: #### BMP #### [facility] [address] [place] [address] Dr. Benedict EdmondsonUrea nitrogen [Mass/Vol]17.0 mg/dLNormal7.0-18.0The [facility] HospitalComment on above:Performed By: #### BMP #### [facility] [address] [place] [address] Dr. Benedict Dickinson nitrogen/Creatinine [Mass ratio]13.3 mg/mgNormalThe [facility] HospitalComment on above:Performed By: #### BMP #### [facility] [address] [place] [address] Dr. Benedict OsullivanF 14(COMP METB)on 00-35-3036Sposmpp [Mass/Vol]3.1 g/dL Critically low3.4-5.0The [facility] HospitalComment on above:Performed By: #### CMP #### [facility] [address] [place] [address] Dr. Benedict EdmondsonAlbumin/Globulin [Mass ratio]0.8 {ratio}NormalThe The Christ HospitalComment on above:Performed By: #### CMP #### [facility] [address] [place] [address] Dr. Benedict De Leon [Catalytic activity/Vol]83 U/MFboybh10-532Eht [facility] HospitalComment on above:Performed By: #### CMP #### [facility] [address] [place] [address] Dr. Benedict Hidalgo [Catalytic activity/Vol]29 U/VUavgxf54-80Awk [facility] HospitalComment on above:Performed By: #### CMP #### [facility] [address] [place] [address] Dr. Yilan ChangAnion gap [Moles/Vol]12.9 mmol/LNormalHighland District Hospital Comment on above:Performed By: #### CMP #### [facility] [address] [place] [address] Dr. Benedict EdmondsonAST [Catalytic activity/Vol]31 U/IFctrfq63-44Ekz [facility] HospitalComment on above:Performed By: #### CMP #### [facility] [address] [place] [address] Dr. Benedict EdmondsonBilirubin [Mass/Vol]1.0 mg/dLNormal0.2-1.0The [facility] Comment on above:Performed By: #### CMP #### [facility] [address] [place] [address] Dr. Benedict EdmondsonCalcium [Mass/Vol]9.2 mg/dLNormal8.5-10.1The [facility] Comment on above:Performed By: #### CMP #### [facility] [address] [place] [address] Dr. Benedict EdmondsonChloride [Moles/Vol]102 mmol/EHsccte14-587Jbg [facility] Comment on above:Performed By: #### CMP #### [facility] [address] [place] [address] Dr. Benedict EdmondsonCO2 [Moles/Vol]27.0 mmol/NPbzehz50.0-32.0The [facility] Comment on above:Performed By: #### CMP #### [facility] [address] [place] [address] Dr. Benedict EdmondsonCreatinine [Mass/Vol]2.03 mg/dLCritically high0.70-1.30The [facility] HospitalComment on above:Performed By: #### CMP #### [facility] [address] [place] [address] Dr. Benedict PatelGFR-AF NKNWVLCR13 mL/min/1.79v6Urlfwupeqi low>=60The [facility] HospitalComment on above:Performed By: #### CMP #### [facility] [address] [place] [address] Dr. Benedict PatelGFR-NON AF MOMPTOXV68 mL/min/1.08h2Krbcvipskc low>=60The [facility] HospitalComment on above:Performed By: #### CMP #### [facility] [address] [address] [address] Benedict EdmondsonGlobulin (S) [Mass/Vol]3.8 g/dLNormMercy HealthComment on above:Performed By: #### CMP #### [facility] [address] [address] [address] Benedict EdmondsonGlucose [Mass/Vol]94 mg/gAYyzffr66-814Wbf [facility] Comment on above:Performed By: #### CMP #### [facility] [address] [place] [address] Dr. Benedict EdmondsonPotassium [Moles/Vol]4.9 mmol/LNormal3.5-5.1The [facility] Comment on above:Performed By: #### CMP #### [facility] [address] [address] [address] Benedict EdmondsonProtein [Mass/Vol]6.9 g/dLNormal6.4-8.2[facility] Comment on above:Performed By: #### CMP #### [facility] [address] [place] [address] Dr. Benedict EdmondsonSodium [Moles/Vol]137 mmol/QEmeygl369-352YyfHighland District Hospital Comment on above:Performed By: #### CMP #### [facility] [address] [address] [address] Benedict EdmondsonUrea nitrogen [Mass/Vol]34.0 mg/dLCritically high7.0-18.0The [facility] HospitalComment on above:Performed By: #### CMP #### [facility] [address] [place] [address] Dr. Benedict Dickinson nitrogen/Creatinine [Mass ratio]16.7 mg/mgNoOhioHealthComment on above:Performed By: #### CMP #### [facility] [address] [place] [address] Dr. Yilan ChangBacteria identified Cx Nom (Bld)on 45-30-9658Pxwndolagmyknt and review of laboratory resultsNormalOhioHealthOhioWooster Community HospitalCBC Auto Differentialon 96-36-2020Kwrliupnf (Bld) [#/Vol]0.02 10*3/uLOhioHealthBasophils/100 WBC (Bld) 0.4 %OhioHealthEosinophils [...] to an infection.Interpretation and review of laboratory resultsAbnormalOhiILealthLymphocytes (Bld) [#/Vol]0.62 10*3/uLLow OhioHealthLymphocytes/100 WBC (Bld)11.4 %New YorkHealthMCH (RBC) [Entitic mass]30.7 pg26.0 - 34.0 pgOhioHealthMCHC (RBC) [Mass/Vol]34.2 g/dL31.0 - 37.0 g/dL OhioHealthMCV (RBC) [Entitic vol]89.8 fL80.0 - 100.0 fLOhioHealthMonocytes (Bld) [#/Vol]0.78 10*3/uLOhioHealthMonocytes/100 WBC (Bld)14.4 %OhioHealthNeutrophils (Bld) [#/Vol]3.78 10*3/uLOhioHealthNeutrophils/100 WBC (Bld)69.5 %[facility] Hospital Nucleated RBC (Bld) [#/Vol]0.00 10*3/uLOhioHealthNucleated RBC/100 WBC (Bld) [Ratio]0.0 %OhioWooster Community HospitalPlatelet mean volume (Bld) [Entitic vol]9.7 fL9.4 - 12.4 fLOhioHealthPlatelets (Bld) [#/Vol]170 10*3/uLOhioHealthRBC (Bld) [#/Vol]3.74 10*6/uLLowOhioHealthWBC (Bld) [#/Vol]5.43 10*3/uLOhioHealthOhioHealthLaboratory - Microbiology and Antimicrobial susceptibilityon 84-81-4641Zltclezz identified Cx Nom (Bld)No Growth After 5 DaysOhioHealthMagnesium Levelon 11-08-2022 Magnesium [Mass/Vol]2.3 mg/dL1.6 - 2.4 mg/dLOhioHealthMagnesium [Mass/Vol]on 58-31-6097Qxvinxofcqudbb and review of laboratory resultsNormAultman Orrville HospitalRenal function 2000 panelon 90-49-5849Zzylujj [Mass/Vol]3.3 g/dL3.2 - 5.2 g/dLOhioHealthAnion gap [Moles/Vol]13 mmol/L10 - 20 mmol/LOhioHealthCalcium [Mass/Vol]9.3 mg/dL8.4 - 10.2 mg/dLOhioHealthChloride [Moles/Vol]104 mmol/L98 - 108 mmol/LOhioHealthCreatinine [Mass/Vol]1.16 mg/dL0.80 - 1.30 mg/dLOhioHealth GFR/1.73 sq M.predicted CKD-EPI (S/P/Bld) [Vol rate/Area]62- PINFOhioHealth Comment on above:Estimated GFR was calculated using the 2020 CKD-EPI creatinine equation.Glucose [Mass/Vol]114 mg/jECuac40 - 99 mg/dLOhioHealthHCO3 [Moles/Vol] 24 mmol/L21 - 32 mmol/LOhioHealthInterpretation and review of laboratory results AbnormalOhioHealthPhosphate [Mass/Vol]2.7 mg/dL2.3 - 3.7 mg/dLWilson [facility] Potassium [Moles/Vol]4.1 mmol/L3.5 - 5.1 mmol/LOhioHealthSodium [Moles/Vol]137 mmol/L135 - 145 mmol/LOhioHealthUrea nitrogen [Mass/Vol]24 mg/dL8 - 25 mg/dL [facility] HospitalUrea nitrogen/Creatinine [Mass ratio]20.7 mg/rmKkfh67.0 - 20.0 [facility] has implemented the eGFR calculation approach that does not have a coefficient for race that conforms to the NKF-ASN Task Force Recommendations.[facility] AdministrationXR Chest 1 Viewon 11-08-2022 1. Prior median [...] pneumothorax or acute osseous change otherwise suspected. [facility] Workstation ID: [id number] RISEXAMINATION: XR CHEST PA/AP [...] pneumothorax or acute osseous change otherwise suspected. [facility] Workstation ID: [id number] [facility] HospitalRadiology Study observation (narrative)[facility] HospitalXR Chest 1 View Ordered By: Romulo Case on 16-24-2396FcnzKavvnd Work Phone: cbc Auto Differentialon 42-25-0689Dsdrmkwuh (Bld) [#/Vol]0.02 10*3/uLOhioHealthBasophils/100 WBC (Bld)0.3 %[facility] HospitalEosinophils (Bld) [#/Vol]0.18 10*3/uLOhioHealthEosinophils/100 WBC (Bld)3.0 %[facility] Erythrocyte distribution width (RBC) [Entitic vol]13.7 %11.6 - 14.8 %[facility] Hematocrit (Bld) [Volume fraction]34.1 %Low41.0 - 53.0 %[facility] HospitalHemoglobin (Bld) [Mass/Vol]11.3 g/dLLow13.5 - 17.5 g/dLOkioHealthImmature granulocytes (Bld) [#/Vol]0.05 10*3/uLOhioHealthImmature granulocytes/100 WBC (Bld)0.80 % [facility] HospitalComment on above:The IG parameter is the [...] [#/Vol]3.75 10*6/uLLowOhioHealthWBC (Bld) [#/Vol]5.98 10*3/uLOhioHealthOhioHealthECG 12 Leadon 77-83-3962Hxihiz Gsho47QXK OhioHealthP-R Vshrhkti600 msOhioHealthQ-T Zdbxamys720 msOhioHealthQRS Nzfuozjt93 msOhioHealthQTC Calculation (Bezet)467 msOhioHealthR Anvq96oslytqnSfdgHqelccI Uage09vcdepzwMrvhAwxmosQuvwoixgzxv Kyid76GUHJjekVhfidqZckin rhythm with occasional Premature ventricular complexes and Premature atrial complexes Otherwise normal ECG Confirmed by YAW DIAZ, CHAYO ([id number]) on 11/07/2022 11:37:24 AMMUSE OhioHealthMagnesium Levelon 17-27-2890Ywydfzfep [Mass/Vol]2.1 mg/dL1.6 - 2.4 mg/dLOhioHealthMagnesium [Mass/Vol]on 70-90-6770Eqctrndwnityqw and review of laboratory resultsNormalOUniversity Hospitals Health SystemealSelect Medical Specialty Hospital - CincinnatiioHealthRenal function 2000 panelon 60-99-4861Jheqznq [Mass/Vol]3.1 g/dLLow3.2 - 5.2 g/dLOhioHealthAnion gap [Moles/Vol]16 mmol/L10 - 20 mmol/LOhioHealthCalcium [Mass/Vol]8.8 mg/dL8.4 - 10.2 mg/dLOhioHealthChloride [Moles/Vol]101 mmol/L98 - 108 mmol/LOhioHealth Creatinine [Mass/Vol]1.34 mg/dLHigh0.80 - 1.30 mg/dLOhioHealthGFR/1.73 sq M.predicted CKD-EPI (S/P/Bld) [Vol rate/Area]53Low- PINFOhioHealthComment on above:Estimated GFR was calculated using the 2020 CKD-EPI creatinine equation. Glucose [Mass/Vol]102 mg/hLLfdz53 - 99 mg/dLOhioHealthHCO3 [Moles/Vol]23 mmol/L 21 - 32 mmol/LOhioHealthInterpretation and review of laboratory resultsAbnormal OhioHealthPhosphate [Mass/Vol]3.1 mg/dL2.3 - 3.7 mg/dLOhioHealthPotassium [Moles/Vol]3.8 mmol/L3.5 - 5.1 mmol/LOhioHealthSodium [Moles/Vol]136 mmol/L135 - 145 mmol/LOhioHealthUrea nitrogen [Mass/Vol]26 mg/dLHigh8 - 25 mg/dLOhioHealth Urea nitrogen/Creatinine [Mass ratio]19.4 mg/mg10.0 - 20.0OhioHealthOhioHealth [facility] has implemented the eGFR calculation approach that does not have a coefficient for race that conforms to the NKF-ASN Task Force Recommendations.OhioWooster Community HospitalOhioHealthTSH DL <= 0.005 mIU/L Qnon 11-07-2022 Interpretation and review of laboratory resultsNormalOhioHealthTSH Qn1.75 m[IU]/LOhioHealthOhioHealthTroponin x 2 (Now and Repeat in 3 hours)on 11-07-2022 Interp Troponin T Delta ChangeProbable non-acute cardiac injury or late presentation of acute injury.[facility] HospitalInterpretation and review of laboratory resultsAbnormalOhioHealthTroponin T51 ng/LCritically highNINF - 22 ng/L OhioHealthTroponin T Delta %-7 %<20% of Baseline TroponinOhCenterville Troponin x 2 (Now and Repeat in 3 hours)Ordered By: Eloina Lama on 67-18-2008Uxmuqroramdcgd and review of laboratory resultsAbnormalOhioHealth Troponin T55 ng/LCritically highNINF - 22 ng/LOhioHealthTroponin T InterpretationPossible acute cardiac injury.OhioWooster Community HospitalOhioHealthBacteria identified Aer cx Nom (Sput)Ordered By: Thania Tierney on 40-92-1547Egatcixpwjl observation Gram stain Nom (Sput)Rare WBCOhioHealthMicroscopic observation Gram stain Nom (Sput)Many Mixed FloraOhioHealthMicroscopic observation Gram stain Nom (Sput)Many Epithelial CellsOhioHealthOkioHealthCBC Auto Differentialon 17-49-7180Clhpsdqtk (Bld) [#/Vol]0.02 10*3/uLOhioHealthBasophils/100 WBC (Bld) 0.3 %OhioHealthEosinophils (Bld) [#/Vol]0.20 10*3/uLOhioHealthEosinophils/100 WBC (Bld)2.8 %OhioWooster Community HospitalErythrocyte distribution width (RBC) [Entitic vol]13.7 % 11.6 [...] complete w contrastOrdered By: Obdulio Mack on 65-79-7006ME37.1148 %[facility] Hospital Work Phone: [facility] Work Phone: Echocardiogram complete w contraston 23-33-8587Dcecxds Info Name: TRISTIN POWELL Age: 82 years : 1940 Gender: Male Ht: 185 cm Wt: 113 kg BSA: 2.45 m2 HR: 85 bpm BP: 112 / 62 mmHg Technical Quality: Technically difficult Exam Date: 11/06/2022 11:02 AM 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 Mild concentric [...] Name Value Normal (more content not included)... [facility] HospitalRadiology Study observation (narrative)[facility] Shawgnesium Levelon 34-68-3260Xhqylenbu [Mass/Vol]2.0 mg/dL1.6 - 2.4 mg/dLOkioHealthMagnesium [Mass/Vol]on 40-60-9991Alndznsdgygkii and review of laboratory resultsNormal [facility] HospitalOhioHealthRenal function 2000 panelon 21-22-9234Yyvocbc [Mass/Vol]3.3 g/dL3.2 - 5.2 g/dLOhioHealthAnion gap [Moles/Vol]16 mmol/L10 - 20 mmol/L OhioHealthCalcium [Mass/Vol]8.9 mg/dL8.4 - 10.2 mg/dLOhioHealthChloride [Moles/Vol]102 mmol/L98 - 108 mmol/LOhioHealthCreatinine [Mass/Vol]1.34 mg/dL High0.80 - 1.30 mg/dLOhioHealthGFR/1.73 sq M.predicted CKD-EPI (S/P/Bld) [Vol rate/Area]53Low- PINFOhioHealthComment on above:Estimated GFR was calculated using the 2020 CKD-EPI creatinine equation.Glucose [Mass/Vol]141 mg/lVOfky44 - 99 mg/dLOhioHealthHCO3 [Moles/Vol]24 mmol/L21 - 32 mmol/LOhioHealth Interpretation and review of laboratory resultsAbnormalOhioHealthPhosphate [Mass/Vol]3.6 mg/dL2.3 - 3.7 mg/dLOhioHealthPotassium [Moles/Vol]3.9 mmol/L3.5 - 5.1 mmol/LOhioHealthSodium [Moles/Vol]138 mmol/L135 - 145 mmol/LOhioHealthUrea nitrogen [Mass/Vol]26 mg/dLHigh8 - 25 mg/dLOhioHealthUrea nitrogen/Creatinine [Mass ratio]19.4 mg/mg10.0 - 20.0OhioOhioHealth [facility] HospitalioHealth [facility] has implemented the eGFR calculation approach that does not have a coefficient for race that conforms to the NKF-ASN Task Force Recommendations.[facility] HospitalHealthSputum Aerobic CultureOrdered By: Thania Tierney on 42-42-2402Zymubpxb identified Aer cx Nom (Sput)Normal Cameron After 48 HoursOhioWooster Community HospitalCBC Auto Differentialon 50-42-8599Zvwnlsqpx (Bld) [#/Vol]0.02 10*3/uLOhioHealth Basophils/100 WBC (Bld)0.3 %OhioHealthEosinophils (Bld) [#/Vol]0.18 10*3/uL OhioHealthEosinophils/100 WBC (Bld)2.7 %OhioHealthErythrocyte distribution width (RBC) [Entitic vol]13.8 %11.6 - 14.8 %OhioHealthHematocrit (Bld) [Volume fraction]33.8 %Low41.0 - 53.0 %OhioHealthHemoglobin (Bld) [Mass/Vol]12.1 g/dLLow 13.5 - 17.5 g/dLOhioHealthImmature granulocytes (Bld) [#/Vol]0.06 10*3/uL OhioHealthImmature granulocytes/100 WBC (Bld)0.90 %OhioHealthComment on above: The IG parameter is the [...] (Bld) [#/Vol]3.68 10*6/uLLowOhioHealthWBC (Bld) [#/Vol]6.68 10*3/uLOhioHealthOhioHealthMagnesium Levelon 75-27-4333Wkpqgrdmm [Mass/Vol]2.2 mg/dL1.6 - 2.4 mg/dLOhioHealthMagnesium [Mass/Vol]on 13-94-3780Sgiqlgjwtwuicr and review of laboratory resultsNormalOhioHealthOhioHealthRenal function 2000 panelon 66-40-0241Wdyudxu [Mass/Vol]3.1 g/dLLow3.2 - 5.2 g/dLOhioHealthAnion gap [Moles/Vol]16 mmol/L10 - 20 mmol/LOhioHealthCalcium [Mass/Vol]8.6 mg/dL8.4 - 10.2 mg/dLOhioHealthChloride [Moles/Vol]101 mmol/L98 - 108 mmol/LOhioHealth Creatinine [Mass/Vol]1.20 mg/dL0.80 - 1.30 mg/dLOhioHealthGFR/1.73 sq M.predicted CKD-EPI (S/P/Bld) [Vol rate/Area]60- PINFOhioHealthComment on above: Estimated GFR was calculated using the 2020 CKD-EPI creatinine equation.Glucose [Mass/Vol]114 mg/wIAohr02 - 99 mg/dLOhioHealthHCO3 [Moles/Vol]22 mmol/L21 - 32 mmol/LOhioHealthInterpretation and review of laboratory resultsAbnormal OhioHealthPhosphate [Mass/Vol]4.3 mg/dLHigh2.3 - 3.7 mg/dLOhioHealthPotassium [Moles/Vol]3.7 mmol/L3.5 - 5.1 mmol/LOhioHealthSodium [Moles/Vol]135 mmol/L135 - 145 mmol/LOhioHealthUrea nitrogen [Mass/Vol]22 mg/dL8 - 25 mg/dLOhioHealthUrea nitrogen/Creatinine [Mass ratio]18.3 mg/mg10.0 - 20.0OhioHealthOhioHealth Laboratory Services has implemented the eGFR calculation approach that does not have a coefficient for race that conforms to the NKF-ASN Task Force Recommendations.[facility] HospitalOhioHealthCBC Auto Differentialon 88-82-4515Lwsdedhpi (Bld) [#/Vol]0.01 10*3/uLOhioHealthBasophils/100 WBC (Bld)0.2 %[facility] Eosinophils (Bld) [#/Vol]0.11 10*3/uLOhioHealthEosinophils/100 WBC (Bld)1.7 % [facility] HospitalErythrocyte distribution width (RBC) [Entitic vol]13.9 %11.6 - 14.8 % OhioHealthHematocrit (Bld) [Volume fraction]36.9 %Low41.0 - 53.0 %[facility] Hemoglobin (Bld) [Mass/Vol]13.0 g/dLLow13.5 - 17.5 g/dLOhioHealthImmature granulocytes (Bld) [#/Vol]0.06 10*3/uLOhioHealthImmature granulocytes/100 WBC (Bld)0.90 %[facility] HospitalComment on above:The IG parameter is the percentage of metamyelocytes, myelocytes and promyelocytes. An immature granulocyte count (IG) of 1% or more suggests the possibility of infection, an IG count of 3% is very likely related to an infection.Interpretation and review of laboratory results AbnormalOhioHealthLymphocytes (Bld) [#/Vol]0.60 10*3/uLLowOhioHealth Lymphocytes/100 WBC (Bld)9.2 %[facility] HospitalMCH (RBC) [Entitic mass]32.8 pg26.0 - 34.0 pgOhioHealthMCHC (RBC) [Mass/Vol]35.2 g/dL31.0 - 37.0 g/dLOhioHealthMCV (RBC) [Entitic vol]93.2 fL80.0 - 100.0 fLOhioHealthMonocytes (Bld) [#/Vol]0.70 10*3/uLOhioHealthMonocytes/100 WBC (Bld)10.7 %OhioHealthNeutrophils (Bld) [#/Vol]5.06 10*3/uLOhioHealthNeutrophils/100 WBC (Bld)77.3 %OhioWooster Community HospitalNucleated RBC (Bld) [#/Vol]0.00 10*3/uLOhioHealthNucleated RBC/100 WBC (Bld) [Ratio]0.0 % OhioHealthPlatelet mean volume (Bld) [Entitic vol]9.3 fLLow9.4 - 12.4 fL OhioHealthPlatelets (Bld) [#/Vol]188 10*3/uLOhioHealthRBC (Bld) [#/Vol]3.96 10*6/uLLowOhioHealthWBC (Bld) [#/Vol]6.54 10*3/uLOhioHealthOhioHealthCOVID-19, MolecularOrdered By: Elaine Robles on 02-83-1174WAWF-CoV-2 (COVID-19) RNA OREN+probe Ql (Resp)Not detectedNot DetectedOhioHealthLegionella Antigen, Urineon 97-57-2704Tylkdgcjduihqu and review of laboratory resultsNormalOhioHealthL. pneumophila Ag Ql (U)NegativeNegative for Legionella antigenOhioHealthComment on above:COMMENT: Results may be affected if patient is on diuretics. INTERPRETATION OF RESULTS: Test detects Legionella pneumophilia serogroup 1 antigens in urine. Legionnaires disease cannot be ruled out since other serogroups and species may also cause disease. [facility]SA DNA Amplified ProbeOrdered By: Joseluis Limon on 00-95-5216KFNF DNA OREN+probe Ql (Unsp spec)Not detectedNot Detected, MRSA NEGATIVEOhioHealth MRSA DNA OREN+probe Ql (Unsp spec)Ordered By: Joseluis Limon on 11-04-2022 Interpretation and review of laboratory resultsNormalOhioHealthOhioHealth Magnesium Levelon 14-90-8597Gkyfbybop [Mass/Vol]2.0 mg/dL1.6 - 2.4 mg/dL New YorkHealthMagnesium [Mass/Vol]on 96-98-3314Cfydlehxrdecgu and review of laboratory resultsNormalOhioHealthOhioHealthRenal function 2000 panelon 20-46-7021Gaalzip [Mass/Vol]3.3 g/dL3.2 - 5.2 g/dLOhioHealthAnion gap [Moles/Vol]15 mmol/L10 - 20 mmol/LOhioHealthCalcium [Mass/Vol]9.2 mg/dL8.4 - 10.2 mg/dLOhioHealthChloride [Moles/Vol]105 mmol/L98 - 108 mmol/LOhioHealth Creatinine [Mass/Vol]0.97 mg/dL0.80 - 1.30 mg/dLOhioHealthGFR/1.73 sq M.predicted CKD-EPI (S/P/Bld) [Vol rate/Area]77- PINFOhioHealthComment on above: Estimated GFR was calculated using the 2020 CKD-EPI creatinine equation.Glucose [Mass/Vol]103 mg/lQIvag97 - 99 mg/dLOhioHealthHCO3 [Moles/Vol]24 mmol/L21 - 32 mmol/LOhioHealthInterpretation and review of laboratory resultsAbnormal OhioHealthPhosphate [Mass/Vol]3.9 mg/dLHigh2.3 - 3.7 mg/dLOhioHealthPotassium [Moles/Vol]4.4 mmol/L3.5 - 5.1 mmol/LOhioHealthSodium [Moles/Vol]140 mmol/L135 - 145 mmol/LOhioHealthUrea nitrogen [Mass/Vol]18 mg/dL8 - 25 mg/dLOhioHealthUrea nitrogen/Creatinine [Mass ratio]18.6 mg/mg10.0 - 20.0OhioOhioHealth [facility] has implemented the eGFR calculation approach that does not have a coefficient for race that conforms to the NKF-ASN Task Force Recommendations.[facility] CenterioWooster Community HospitalRespiratory pathogens DNA and RNA panel OREN+non-probe (Nph)Ordered By: Shanelle Garcia on 76-53-6197Bxhvalmsmk DNA OREN+non-probe Ql (Nph)Not detectedNot DetectedOhioHealthB. parapertussis UV9934 DNA OREN+non-probe Ql (Nph)Not detectedNot DetectedOhioHealthB. pertussis [...] detectedNot DetectedOhioHealthRSV RNA OREN+non-probe Ql (Nph)Not detectedNot HzxwwehzPjslIqkccnBWTY-MdO-1 (COVID-19) RNA OREN+non-probe Ql (Nph)Not detected Not DetectedOhioHealthOhioHealthS. pneumoniae Urine AntigenOrdered By: Kezia Mercedes on 54-99-0679Fpxknmajfajveg and review of laboratory resultsNormal OhioHealthS. pneumoniae Ag Ql (U)NegativePresumptive Negative for Pneumococcal pneumoniaeOhioHealthComment on above:A negative result suggests no current or recent pneumococcal infection. A negative result does not rule out Streptococcus pneumoniae infection since the antigen present in the sample may be below the detection limit of the test.PztcXaoaurVXSG-HqJ-9 (COVID-19) RNA OREN+probe Ql (Resp)Ordered By: Elaine Robles on 04-84-3550Uzqhzhvkieeuws and review of laboratory resultsNormalOUniversity Hospitals Health SystemealthThis test was performed under the FDA's Emergency [...] at the following links: For Healthcare Providers: https://www.fda.gov/media/947036/download For Patients: https://www.fda.gov/media/864190/downloadOhioHealthOhioHealthXR Humerus Left 2+ Views (Standard)on 11-04-2022 1. [...] lower lung base scarring/atelectasis. Workstation ID: [id number] [facility] HospitalRadiology Study observation (narrative)[facility] HospitalXR Humerus Left 2+ Views (Standard)Ordered By: Gustavo Muro on 52-22-0106HhsdTkokjl Work Phone: Basi metabolic 2000 panelon 85-48-2200Xyysu gap [Moles/Vol]14 mmol/L10 - 20 mmol/LOhioHealthCalcium [Mass/Vol]9.5 mg/dL8.4 - 10.2 mg/dLOhioHealthChloride [Moles/Vol]101 mmol/L98 - 108 mmol/LOhioHealth Creatinine [Mass/Vol]1.13 mg/dL0.80 - 1.30 mg/dLOhioHealthGFR/1.73 sq M.predicted CKD-EPI (S/P/Bld) [Vol rate/Area]64- PINFOhioHealthComment on above: Estimated GFR was calculated using the 2020 CKD-EPI creatinine equation.Glucose [Mass/Vol]92 mg/dL65 - 99 mg/dLOhioHealthHCO3 [Moles/Vol]24 mmol/L21 - 32 mmol/L [facility] HospitalInterpretation and review of laboratory resultsNormalOhioHealth Potassium [Moles/Vol]4.3 mmol/L3.5 - 5.1 mmol/LOhioHealthSodium [Moles/Vol]135 mmol/L135 - 145 mmol/LOhioHealthUrea nitrogen [Mass/Vol]20 mg/dL8 - 25 mg/dL [facility] HospitalUrea nitrogen/Creatinine [Mass ratio]17.7 mg/mg10.0 - 20.0[facility] has implemented the eGFR calculation approach that does not have a coefficient for race that conforms to the NKF-ASN Task Force Recommendations.[facility] Auto Differentialon 21-54-6712Xgwdtctzm (Bld) [#/Vol]0.03 10*3/uLOhioHealthBasophils/100 WBC (Bld)0.4 %[facility] Eosinophils (Bld) [#/Vol]0.18 10*3/uLOhioHealthEosinophils/100 WBC (Bld)2.2 % [facility] HospitalErythrocyte distribution width (RBC) [Entitic vol]14.3 %11.6 - 14.8 % [facility] HospitalHematocrit (Bld) [Volume fraction]40.7 %Low41.0 - 53.0 %[facility] Hemoglobin (Bld) [Mass/Vol]13.4 g/dLLow13.5 - 17.5 g/dLOhioHealthImmature granulocytes (Bld) [#/Vol]0.06 10*3/uLOhioHealthImmature granulocytes/100 WBC (Bld)0.70 %OhioHealthComment on above:The IG parameter is the percentage of metamyelocytes, myelocytes and promyelocytes. An immature granulocyte count (IG) of 1% or more suggests the possibility of infection, an IG count of 3% is very likely related to an infection.Interpretation and review of laboratory results AbnormalOhioHealthLymphocytes (Bld) [#/Vol]0.70 10*3/uLLowOhioHealth Lymphocytes/100 WBC (Bld)8.7 %OhioHealthMCH (RBC) [Entitic mass]30.5 pg26.0 - 34.0 pgOhioHealthMCHC (RBC) [Mass/Vol]32.9 g/dL31.0 - 37.0 g/dLOhioHealthComment on above:Cold Agglutinin presentMCV (RBC) [Entitic vol]92.7 fL80.0 - 100.0 fL OhioHealthMonocytes (Bld) [#/Vol]0.68 10*3/uLOhioHealthMonocytes/100 WBC (Bld) 8.4 %OhioHealthNeutrophils (Bld) [#/Vol]6.41 10*3/uLOhioHealthNeutrophils/100 WBC (Bld)79.6 %OhioHealthNucleated RBC (Bld) [#/Vol]0.00 10*3/uLOhioHealth Nucleated RBC/100 WBC (Bld) [Ratio]0.0 %OhioHealthPlatelet mean volume (Bld) [Entitic vol]10.0 fL9.4 - 12.4 fLOhioHealthPlatelets (Bld) [#/Vol]192 10*3/uL OhioHealthRBC (Bld) [#/Vol]4.39 10*6/uLLowOhioHealthWBC (Bld) [#/Vol]8.06 10*3/uLOhioHealthOhioHealthCRP [Mass/Vol]on 64-14-2539Odeqdulpmwbpld and review of laboratory resultsAbnormalOhioHealthCRP, Inflammationon 88-93-0638CZL [Mass/Vol]35.4 mg/LHigh0.0 - 10.0 mg/LOhioHealthCT Pulmonary Arterieson [...] Left lower lobe pneumonia. Workstation ID: [id number] [facility] HospitalRadiology Study observation (narrative)OhioWooster Community HospitalCT Pulmonary Arteries Ordered By: Silvio Dhillon on 00-29-7831NhkkSyhqzb Work Phone: ekg 12-leadon 04-01-0959Boqyso Kfqc78APVLsuyAmalqcC Hdjl73htuaubaEqwrZcalvpU-U Kyhcjjuy060 msOhioHealthQ-T Ybzbvlso664 msOhioHealth QRS Fcyovbib57 msOhioHealthQTC Calculation (Bezet)461 msOhioHealthR Axis46 degreesOhioHealthT Fxkx05vilpqwwXqccPtbucaWgyiwkwuqnn Vdqd50YHBNlpcTxpbitBdhbyc sinus rhythm Normal ECG Confirmed by PIERCE MOREAU DO ([id number]) on 11/03/2022 4:55:18 PMMUSEOhioHealthESR Westergren method (Bld) [Velocity]on 35-47-4283MXH (Bld) [Velocity]30 mm/hHigh [facility] HospitalInterpretation and review of laboratory resultsAbnormAultman Hospitalld Topon 72-29-0487Gnmuu TubeHold for add-ons.[facility] HospitalComment on above:Auto resulted.NT Pro BNPon 71-03-5191Egcwexkzopx peptide.B prohormone N- Terminal [Mass/Vol]429 pg/mLHigh0 - 300 pg/mLOhioHealthNatriuretic peptide.B prohormone N-Terminal [Mass/Vol]on 07-34-7312Ynpwqlsiikhacq and review of laboratory resultsAbnormalOhioHealthPride Study Cut-offs Rule In: < /= 50 Years >450 pg/mL 51 Years - 75 Years >900 pg/mL 76 Years - 99 Years >1800 pg/mL Rule Out: All patients <300 pg/mLOhioHealthOhioHealthNo Panel Informationon 11-03-2022 Extra TubeHold for add-ons.OhioHealthComment on above:Auto resulted.[facility] ColumbusOhioHealthTroponinOrdered By: Randal Lopez on 12-45-2780Aywgme Troponin T Delta ChangeProbable non-acute cardiac injury or late presentation of acute injury.[facility] HospitalInterpretation and review of laboratory resultsAbnormal OhioHealthTroponin T119 ng/LCritically highNINF - 22 ng/LOhioHealthTroponin T Delta %1 %<20% of Baseline TroponinOhioHealthOhioHealthTroponinOrdered By: Rhonda Bland on 11-73-6276Kuskgrwgxsrhkn and review of laboratory results AbnormalOhioHealthTroponin T117 ng/LCritically highNINF - 22 ng/LOhioHealth Troponin T InterpretationPossible acute cardiac injury.[facility] UrinalysisOrdered By: Flory Pino on 84-02-7841Vggfrlrs Auto Ql (U)None Seen None Seen /hpfOhioHealthBilirubin Ql (U)NegativeNegativeOhioHealthClarity Refractometry automated (U)ClearClearOhioHealthColor (U)YellowColorless, Yellow OhioWooster Community HospitalGlucose Auto test strip (U) [Mass/Vol]NegativeNegative mg/dLOhioHealth Hemoglobin Auto test strip Ql (U)NegativeNegativeOhioHealthInterpretation and review of laboratory resultsAbnormalOhioHealthKetones (U) [Mass/Vol]Negative Negative mg/dLOhioHealthLeukocyte esterase Auto test strip Ql (U)Negative NegativeOhioHealthMucus Auto (Urine sed) [#/Area]RareNone Seen, Rare /lpf OhioWooster Community HospitalNitrite Auto test strip Ql (U)NegativeNegativeOhioHealthpH (U)7.5 [pH] High5.0 - 7.0OhioHealthProtein (U) [Mass/Vol]NegativeNegative mg/dLOhioHealthRBC Auto (Urine sed) [#/Area]2OhioHealthSpecific gravity (U) [Rel density]1.020 1.005 - 1.025OhioHealthUrobilinogen (U) [Mass/Vol]mg/dLNINF - 2.0 mg/dL OhioWooster Community HospitalMicroscopic examination is performed on all urinalysis samples and only positive findings are reported. The test for blood on the chemical analytic portion of urinalysis may also be positive due to hemoglobinuria and myoglobinuria and if red blood cells are present they are quantified by microscopic examination.OhioHealthOhioHealthUrine Containeron 11-03-2022 OhioHealthVenous Doppler BILATERAL Lower Extremitieson 37-03-6180Jhsqmys Info Name: TRISTIN POWELL Age: 82 years : 1940 Gender: Male Exam Date: 11/03/2022 1:57 PM Patient Status: Emergency Food Tester: Maggy Dempsey RVT Referring Physician: JUANA Horowitz; Indications R60.9 - Edema, unspecified Procedure Description 80542 Duplex examination using B-mode, color and spectral Doppler of extremity veins including responses to compression and other maneuvers; complete bilateral study. Conclusions * No evidence of deep or superficial vein thrombosis in the right or left lower extremities. . Report Signatures Finalized by Tera Meyer MD, RPLUIZA, FSIR on 11/03/2022 02:59 PMFUWHITTIER HOSPITAL MED[facility] Sylvia Meyer MD - 11/03/2022 Patient Info Name: TRISTIN POWELL Age: 82 years : 1940 Gender: Male Exam Date: 11/03/2022 1:57 PM Patient Status: Emergency Food Tester: Maggy Dempsey RVT Referring Physician: JUAAN Horowitz; Indications R60.9 - Edema, unspecified Procedure Description 79358 Duplex examination using B-mode, color and spectral Doppler of extremity veins including responses to compression and other maneuvers; complete bilateral study. Conclusions * No evidence of deep or superficial vein thrombosis in the right or left lower extremities. . Report Signatures Finalized by Tera Meyer MD, RPLUIZA, FSIR on 11/03/2022 02:59 PM [facility] HospitalRadiology Study observation (narrative)OhioHealthVenous Doppler BILATERAL Lower ExtremitiesOrdered By: Sylvia Meyer on 84-09-5734QhwiUsvofv Work Phone: XR Chest 1 Viewon 93-51-0252POEBTJXC/ 1. Patient is status post sternotomy, somewhat rotated, lordotic. The visualized osseous structuresappear intact. 2. The heart size seems normal. The aorta is tortuous, atherosclerotic. 3. There are some linear densities at lung bases, either scarring or discoid atelectatic changes. There are no focal infiltrates, pleural effusions, pulmonary edema, or pneumothorax. There are a few scattered calcified granulomas within the lungs. [employer] Workstation ID: [id number] RISEXAMINATION: AP UPRIGHT CHEST: 11/03/2022 AT 1536 HOURS HISTORY: Injury/Trauma or Illness?:Illness/Other How long have you had these symptoms (acute/chronic)?:Unknown sob COMPARISON FILMS: AP chest 10/09/2018 from [facility]. Cedric Martines MD - 11/03/2022 EXAMINATION: AP UPRIGHT CHEST: 11/03/2022 AT 1536 HOURS HISTORY: Injury/Trauma or Illness?:Illness/Other How long have you had these symptoms (acute/chronic)?:Unknown sob COMPARISON FILMS: AP chest 10/09/2018 from [facility]. IMPRESSION: FINDINGS/ 1. Patient is status post sternotomy, somewhat rotated, lordotic. The visualized osseous structuresappear intact. 2. The heart size seems normal. The aorta is tortuous, atherosclerotic. 3. There are some linear densities at lung bases, either scarring or discoid atelectatic changes. There are no focal infiltrates, pleural effusions, pulmonary edema, or pneumothorax. There are a few scattered calcified granulomas within the lungs. [employer] Workstation ID: [id number] [facility] HospitalRadiology Study observation (narrative)[facility] HospitalXR Chest 1 View Ordered By: Cedric Emmanuel on 93-86-4746InaoAbygym Work Phone: xr Foot Left 3+ Views (Standard)on 11-03-2022 Chronic [...] of acute osseous abnormalities. Workstation ID: [id number] [facility] HospitalRadiology Study observation (narrative)[facility] HospitalXR Foot Left 3+ Views (Standard)Ordered By: Rohit March on 67-78-1888PqisGzhxqy Work Phone: BNPon 75-82-9860Doftjsgdopo peptide B (Bld) [Mass/Vol] 93 pg/mLNormal0-100Ohiohealth Shelby HospitalComment on above:Performed By: #### BNP #### [place] [address] Ph. [phone] Blood Count with Auto Diffon 38-69-3627AJNU#BASO#: 0.0 Normal0.0-0.1Ohiohealth Shelby HospitalComment on above:Order Comment: resuts after 30 minutes of incubation at 37degree C possible cold rbc agglutination Performed By: #### DIFF, CBCAD #### [place] [address] Ph. [phone]%BASO%: 4Dajths9-8HisiegmOhiohealth Shelby HospitalComment on above: Order Comment: resuts after 30 minutes of incubation at 37degree C possible cold rbc agglutinationPerformed By: #### DIFF, CBCAD #### [place] [address] Ph. [phone] (Bld) [#/Vol]0.2 10*3/uLNormal0.0-0.5Ohiohealth Shelby HospitalComment on above:Order Comment: resuts after 30 minutes of incubation at 37degree C possible cold rbc agglutinationPerformed By: #### DIFF, CBCAD #### [place] [address] Ph. [phone]/100 WBC (Bld)2 %Normal0-5[facility] Comment on above:Order Comment: resuts after 30 minutes of incubation at 37degree C possible cold rbc agglutinationPerformed By: #### DIFF, CBCAD #### [place] [address] Ph. [phone] distribution width (RBC) [Ratio]13.8 %Normal 11.5-14.5Ohiohealth Shelby HospitalComment on above:Order Comment: resuts after 30 minutes of incubation at 37degree C possible cold rbc agglutinationPerformed By: #### DIFF, CBCAD #### [place] [address] Ph. [phone] (Bld) [Volume fraction]39.9 %Low42.0-52.0Ohio[facility] Shelby HospitalComment on above:Order Comment: resuts after 30 minutes of incubation at 37degree C possible cold rbc agglutinationPerformed By: #### DIFF, CBCAD #### [place] [address] Ph. [phone] (Bld) [Mass/Vol]13.7 g/aVZfarkf61.5-17.5Ohio[facility] Shelby HospitalComment on above:Order Comment: resuts after 30 minutes of incubation at 37degree C possible cold rbc agglutinationPerformed By: #### DIFF, CBCAD #### [place] [address] Ph. [phone] (Bld) [#/Vol]0.7 10*3/uLLow1.0-4.0Ohio[facility] Shelby HospitalComment on above:Order Comment: resuts after 30 minutes of incubation at 37degree C possible cold rbc agglutinationPerformed By: #### DIFF, CBCAD #### [place] [address] Ph. [phone]/100 WBC (Bld)6 %Gvt19-09BiqwaamOhiohealth Shelby Hospital Comment on above:Order Comment: resuts after 30 minutes of incubation at 37degree C possible cold rbc agglutinationPerformed By: #### DIFF, CBCAD #### [place] [address] Ph. [phone] (RBC) [Entitic mass]31.3 dvQjyngw19.0-35.0WNationwide Children's HospitalComment on above:Order Comment: resuts after 30 minutes of incubation at 37degree C possible cold rbc agglutinationPerformed By: #### DIFF, CBCAD #### [place] [address] Ph. [phone] (RBC) [Mass/Vol]34.3 g/oEMjcaou45.0-36.0Ohio[facility] Shelby HospitalComment on above:Order Comment: resuts after 30 minutes of incubation at 37degree C possible cold rbc agglutinationPerformed By: #### DIFF, CBCAD #### [place] [address] Ph. [phone] (RBC) [Entitic vol]91.1 rQFzebik14.0-100.0WNationwide Children's HospitalComment on above:Order Comment: resuts after 30 minutes of incubation at 37degree C possible cold rbc agglutinationPerformed By: #### DIFF, CBCAD #### [place] [address] Ph. [phone] (Bld) [#/Vol]0.8 10*3/uLNormal0.3-1.0Ohio[facility] Shelby HospitalComment on above:Order Comment: resuts after 30 minutes of incubation at 37degree C possible cold rbc agglutinationPerformed By: #### DIFF, CBCAD #### [place] [address] Ph. [phone]/100 WBC (Bld)7 %Normal1-15[facility] Comment on above:Order Comment: resuts after 30 minutes of incubation at 37degree C possible cold rbc agglutinationPerformed By: #### DIFF, CBCAD #### [place] [address] Ph. [phone] (Bld) [#/Vol]9.8 10*3/uLHigh1.8-7.7Ohio[facility] Shelby HospitalComment on above:Order Comment: resuts after 30 minutes of incubation at 37degree C possible cold rbc agglutinationPerformed By: #### DIFF, CBCAD #### [place] [address] Ph. [phone]/100 WBC (Bld)84 %Forf62-02IjnmlvmOhiohealth Shelby Hospital Comment on above:Order Comment: resuts after 30 minutes of incubation at 37degree C possible cold rbc agglutinationPerformed By: #### DIFF, CBCAD #### [place] [address] Ph. [phone] mean volume (Bld) [Entitic vol]10.1 fLNormal9.4-12.3 [facility] Shelby HospitalComment on above:Order Comment: resuts after 30 minutes of incubation at 37degree C possible cold rbc agglutinationPerformed By: #### DIFF, CBCAD #### [place] [address] Ph. [phone] (Bld) [#/Vol]180 10*3/lGHxntuf734-358QyyghndNationwide Children's HospitalComment on above:Order Comment: resuts after 30 minutes of incubation at 37degree C possible cold rbc agglutinationPerformed By: #### DIFF, CBCAD #### [place] [address] Ph. [phone] (Bld) [#/Vol]4.38 10*6/uLLow4.70-6.10WNationwide Children's HospitalComment on above:Order Comment: resuts after 30 minutes of incubation at 37degree C possible cold rbc agglutinationPerformed By: #### DIFF, CBCAD #### [place] [address] Ph. [phone] (Bld) [#/Vol]11.6 10*3/uLHigh3.7-11.0WNationwide Children's HospitalComment on above:Order Comment: resuts after 30 minutes of incubation at 37degree C possible cold rbc agglutinationPerformed By: #### DIFF, CBCAD #### [place] [address] Ph. [phone] Metabolic Panelon 10-49-3825Prurulw [Mass/Vol]3.6 g/dLNormal3.5-5.0WNationwide Children's HospitalComment on above:Performed By: #### CMP #### [address] [address] Ph. [phone] [Catalytic activity/Vol]85 U/CPwhtuu03-281MnvvexxNationwide Children's HospitalComment on above:Performed By: #### CMP #### [place] [address] Ph. [phone] [Catalytic activity/Vol]70 U/LHigh0-50WNationwide Children's HospitalComment on above:Performed By: #### CMP #### [address] [address] Ph. [phone] [Catalytic activity/Vol]38 U/ZBzbhba01-74QqdrldwNationwide Children's HospitalComment on above:Performed By: #### CMP #### [place] [address] Ph. [phone] [Mass/Vol]0.9 mg/dLNormal0.2-1.3WNationwide Children's HospitalComment on above:Performed By: #### CMP #### [place] [address] Ph. [phone] [Mass/Vol]8.9 mg/dLNormal8.4-10.2WNationwide Children's HospitalComment on above:Performed By: #### CMP #### [place] [address] Ph. [phone] [Moles/Vol]102 mmol/PQsejbw70-405UuxzeghNationwide Children's HospitalComment on above:Performed By: #### CMP #### [address] [address] Ph. [phone] [Moles/Vol]25 mmol/TTligav29-76OdctxsvNationwide Children's Hospital Comment on above:Performed By: #### CMP #### [address] [address] Ph. [phone] [Mass/Vol]1.02 mg/dLNormal0.66-1.25Ohiohealth Shelby HospitalComment on above:Performed By: #### CMP #### [address] [address] Ph. [phone]/1.73 sq M.predicted among non-blacks MDRD (S/P/Bld) [Vol rate/Area]73 mL/min/{1.73_m2}Normal>60WNationwide Children's HospitalComment on above: Result Comment: GFR calculated using CKD-EPI (2020) formula.\X0D0A\Stage 1 Kidney damage (e.g., protein in the urine) with normal GFR >=90\X0D0A\Stage 2 Kidney damage with mild decrease in GFR 60-89\X0D0A\Stage 3a Moderate decrease in GFR 45-59\X0D0A\Stage 3b Moderate decrease in GFR 30-44\X0D0A\Stage 4 Severe reduction in GFR 15-29\X0D0A\Stage 5 Kidney failure <15Performed By: #### CMP #### [place] [address] Ph. [phone] [Mass/Vol]103 mg/zZFced85-357EzqbwpwOhiohealth Shelby Hospital Comment on above:Performed By: #### CMP #### [place] [address] Ph. [phone] [Moles/Vol]4.5 mmol/LNormal3.6-5.0Ohio[facility] Shelby HospitalComment on above:Performed By: #### CMP #### [place] [address] Ph. [phone] [Mass/Vol]6.8 g/dLNormal6.3-8.2[facility] Comment on above:Performed By: #### CMP #### [place] [address] Ph. [phone] [Moles/Vol]135 mmol/ENozkhm068-714CnqphxtOhiohealth Shelby HospitalComment on above:Performed By: #### CMP #### [place] [address] Ph. [phone] nitrogen [Mass/Vol]23 mg/dLHigh9-20Ohio[facility] Shelby HospitalComment on above:Performed By: #### CMP #### [address] [address] Ph. [phone] REVIEWon 50-39-9587GCBI REVIEWDIFFCOM: see commentsNormal [facility] Shelby HospitalComment on above:Order Comment: slide review rbc agglutination notedPerformed By: #### DIFF, CBCAD #### [place] [address] Ph. [phone] - Chemistry and Chemistry - challengeon 10-30-2022 Natriuretic peptide B (Bld) [Mass/Vol]93 pg/mL0 - 100 pg/mLWYANDOTAlbumin [Mass/Vol]3.6 g/dL3.5 - 5.0 g/dLWYANDOTALP (Bld) [Catalytic activity/Vol]85 U/L 38 - 126 U/LWYANDOTALT [Catalytic activity/Vol]70 U/LHigh0 - 50 U/LWYANDOTAST [Catalytic activity/Vol]38 U/L17 - 59 U/LWYANDOTBilirubin [Mass/Vol]0.9 mg/dL0.2 - 1.3 mg/dLWYANDOTCalcium [Mass/Vol]8.9 mg/dL8.4 - 10.2 mg/dLWYANDOTChloride [Moles/Vol]102 mmol/LWYANDOTCO2 [Moles/Vol]25 mmol/LWYANDOTCreatinine [Mass/Vol] 1.02 mg/dL0.66 - 1.25 mg/dLWYANDOTGlucose [Mass/Vol]103 mg/iMNnxg46 - 100 mg/dL WYANDOTPotassium [Moles/Vol]4.5 mmol/LWYANDOTProtein [Mass/Vol]6.8 g/dL6.3 - 8.2 g/dLWYANDOTSodium [Moles/Vol]135 mmol/LWYANDOTUrea nitrogen (BldV) [Mass/Vol]23 mg/dLHigh9 - 20 mg/dLWYANDOTLaboratory - Hematology and Cell countson 43-70-6187Fuovzkykm (Bld) [#/Vol]0.0 10*3/uLWYANDOTBasophils/100 WBC (Bld)0 %0 - [...] [#/Vol]11.6 10*3/uLHighWYANDOTLaboratory - Microbiology and Antimicrobial susceptibilityon 29-55-1284CSGJ-CoV-2 (COVID-19) RNA OREN+probe Ql (Unsp spec)Not detectedNot DetectedWYANDOTNo Panel Informationon 94-25-8338Nqcvnckhvs by PCR Not detectedNot DetectedWYANDOTBordetella Parapertussis ([id number])Not detectedNot DetectedWYANDOTBordetella Parapertussis (ptxP)Not detectedNot DetectedWYANDOT Chlamydia [...] DetectedWYANDOTWYANDOTDiff Commentsee comments WYANDOTslide review rbc agglutination notedWSOUTHWEST GENERAL HEALTH CENTERWENCOMPASS [facility]ALEDO Eosinophils Absolute0.2WYANDOTInterpretation and review of laboratory results AbnormalWYANDOTLymphocytes Absolute0.7LowWYANDOTMonocytes Absolute0.8WYANDOT Neutrophils Absolute9.8HighWYANDOTresuts after 30 minutes of incubation at 37degree C possible cold rbc agglutinationWSOUTHWEST GENERAL HEALTH CENTERWENCOMPASS HEALTH REHABILITATION HOS[facility]ITAL OF SCOTTSDALEDOTWYANDOT 1. Questionable left infrahilar infiltrate. 2. Slight bibasilar atelectasis. 3. Chronic changes and findings of COPD. [facility] CONSOLIDATEDEXAM: XR CHEST PORTABLE HISTORY: TECH NOTES: [...] region. Report electronically signed by: Dr. Dashawn DaiCONWAY [facility] Dashawn Duarte, DO - 10/30/2022 EXAM: XR CHEST PORTABLE [...] 3. Chronic changes and findings of COPD. [employer] Phone: GFR, Kadqfkfuc11- PINFWYANDOTComment on above: GFR calculated using CKD-EPI (2020) formula. Stage 1 Kidney damage (e.g., protein in the urine) with normal GFR >=90 Stage 2 Kidney damage with mild decrease in GFR 60-89 Stage 3a Moderate decrease in GFR 45-59 Stage 3b Moderate decrease in GFR 30-44 Stage 4 Severe reduction in GFR 15-29 Stage 5 Kidney failure <15 Interpretation and review of laboratory resultsAbnormalWYANDOTWYANDOTRadiology Study observation (narrative)[employer] Phone: No Panel InformationOrdered By: Dashawn Dai on 97-55-6628QBIYGDE Work Phone: Respiratory Panelon 80-10-6262QvtoxtamgdQkv detected NormalNot DetectedOhiohealth Shelby HospitalComment on above:Performed By: #### RESPAN #### [place] [address] Ph. [phone] Parapertussis ([id number])Not detectedNormalNot Detected [facility] Shelby HospitalComment on above:Performed By: #### RESPAN #### [place] [id number] Ph. [phone] Parapertussis (ptxP)Not detectedNormalNot Detected [facility] Shelby HospitalComment on above:Performed By: #### RESPAN #### [address] [address] Ph. [phone] PneumoniaeNot detectedNormalNot DetectedWNationwide Children's HospitalComment on above:Performed By: #### RESPAN #### [address] [address] Ph. [phone] 229ENot detectedNormalNot DetectedWNationwide Children's HospitalComment on above:Performed By: #### RESPAN #### [address] [address] Ph. [phone] XIG2Xmv detectedNormalNot DetectedWNationwide Children's HospitalComment on above:Performed By: #### RESPAN #### [address] [address] Ph. [phone] OY30Uvm detectedNormalNot DetectedWNationwide Children's HospitalComment on above:Performed By: #### RESPAN #### [address] [address] Ph. [phone] UQ34Dks detectedNormalNot DetectedWNationwide Children's HospitalComment on above:Performed By: #### RESPAN #### [address] [address] Ph. [phone]-2 RPNot detectedNormalNot DetectedWNationwide Children's Hospital Comment on above:Performed By: #### RESPAN #### [address] [address] Ph. [phone] MetapneumovirusNot detectedNormalNot DetectedWNationwide Children's HospitalComment on above:Performed By: #### RESPAN #### [address] [address] Ph. [phone] Rhinovirus/EnterovirusNot detectedNormalNot Detected [facility] Shelby HospitalComment on above:Performed By: #### RESPAN #### [address] [address] Ph. [phone] ANot detectedNormalNot DetectedWNationwide Children's HospitalComment on above:Performed By: #### RESPAN #### [address] [address] Ph. [phone] BNot detectedNormalNot DetectedWNationwide Children's HospitalComment on above:Performed By: #### RESPAN #### [address] [address] Ph. [phone] PneumoniaeNot detectedNormalNot DetectedWNationwide Children's HospitalComment on above:Performed By: #### RESPAN #### [address] [address] Ph. [phone] Virus 1Not detectedNormalNot DetectedWNationwide Children's HospitalComment on above:Performed By: #### RESPAN #### [address] [address] Ph. [phone] Virus 2Not detectedNormalNot DetectedWNationwide Children's HospitalComment on above:Performed By: #### RESPAN #### [address] [address] Ph. [phone] Virus 3Not detectedNormalNot DetectedWNationwide Children's HospitalComment on above:Performed By: #### RESPAN #### [address] [address] Ph. [phone] Virus 4Not detectedNormalNot DetectedWNationwide Children's HospitalComment on above:Performed By: #### RESPAN #### [address] [address] Ph. [phone] Syncytial VirusNot detectedNormalNot DetectedWNationwide Children's HospitalComment on above:Performed By: #### RESPAN #### [place] [address] Ph. [phone] CHEST PORTABLEon 69-77-4891NA CHEST PORTABLERADRPT EXAM: XR CHEST PORTABLE HISTORY: [...] Signed by: Dashawn Dai DO 10/30/22 Final resultNoRegional Medical CenterXR Chest 2 Views*on 36-38-8691JV Chest 2 Views*Findings: Median sternotomy. Cardiopericardial silhouette normal. Aorta calcified and tortuous. Pulmonary vasculature normal. Lungs hyperinflated. Scarring left lung base. Mild blunting right costophrenic angle. IMPRESSION: Small right pleural effusion versus pleural thickening. Emphysema. Report reported and signed by Joe Davis on 10/27/2022 1621NormalNortphoenix memorial hospitaln Charlotte [facility]gerford HospitalCreatinine and Glomerular filtration rate.predicted panel (S/P/Bld)Ordered By: Cristian Beaver on 13-93-4152Loyfmpadat [Mass/Vol]1.16 mg/dL0.64-1.27[facility] Children'S HospitalEstimated glomerular filtration rate (GFR) non- AmericanOrdered By: Cristian Beaver on 10-97-2180FJW/1.73 sq M.predicted among non-blacks MDRD (S/P/Bld) [Vol rate/Area]60 mL/Min [facility]S HospitalNo Panel InformationOrdered By: Cristian Beaver on 18-04-0822Wixhtrkzl GFR ()> 60 mL/MinAkron Children'S HospitalComment on above:GFR estimated reference range: According to KDOQI guidelines, <60 ml/min/1.73m2 is sufficient todiagnose a patient with chronic kidney disease.Pharmacy Creatinine Clearance (Chem64.62Ohio State Harding Hospitalerum or plasma urea nitrogen measurement (mass/volume)Ordered By: Cristian Beaver on 70-16-0664Yjpu nitrogen [Mass/Vol]14 mg/dL9-23[facility] Children'S HospitalCOVID-19, MolecularOrdered By: Freddie Avila on 47-06-3937BYRH-CoV-2 (COVID-19) RNA OREN+probe Ql (Resp)Not detectedNot Detected [facility] Angiogram Abdominal Aorta With Lower Extremityon 04-15-2022 [...] 5. Chronic findings including severe pancolonic diverticulosis. [employer] Workstation ID: [id number] RISEXAMINATION: CT ANGIOGRAM ABDOMINAL [...] common femoral artery and profunda. The left umkumiut SFA is occluded with extension through the [...] common femoral artery and profunda. The left umkumiut SFA is occluded with extension through the [...] severe pancolonic diverticulosis. NELYD/karie Workstation ID: [id number] [facility] Angiogram Abdominal Aorta With Lower ExtremityOrdered By: Chad Lezama on 13-35-8734EmhjUdlpmc Work Phone: [phone]-AcH-2 (COVID-19) RNA OREN+probe Ql (Resp)Ordered By: Freddie Avila on 64-49-3205Rygaqkbperkwrn and review of laboratory results NormalOhioHealthThis test [...] at the following links: For Healthcare Providers: https://www.fda.gov/media/299710/download For Patients: https://www.fda.gov/media/673155/downloadOhioHealthOhioHealthBasic metabolic 2000 panelon 16-30-9120Szzwk gap [Moles/Vol]16 mmol/L10 - 20 mmol/L OhioHealthCalcium [...] 25 mg/dLOhioHealthUrea nitrogen/Creatinine [Mass ratio]13.5 mg/mg10 - 20OhioHealthOhioHealth Laboratory [facility] has implemented the eGFR calculation approach that does not have a coefficient for race that conforms to the NKF-ASN Task Force Recommendations.[facility] Memorial HospitalOhioHealthCBC Auto Differentialon 29-87-2145Lcufimivd (Bld) [#/Vol]0.03 10*3/uLOhioHealth Basophils/100 WBC (Bld)0.5 %OhioHealthEosinophils (Bld) [#/Vol]0.11 10*3/uL OhioHealthEosinophils/100 WBC (Bld)1.9 %OhioHealthErythrocyte distribution width (RBC) [Entitic vol]13.7 %11.6 - 14.8 %OhioHealthHematocrit (Bld) [Volume fraction]41.7 %41 - 53 %OhioHealthHemoglobin [...] laboratory resultsAbnormalOhioHealthLymphocytes (Bld) [#/Vol]0.85 10*3/uLLowOhioHealthLymphocytes/100 WBC (Bld)14.9 %[facility] MCH (RBC) [Entitic mass]31.3 pg26 - 34 pgOhioHealthMCHC (RBC) [Mass/Vol]33.6 g/dL31 - 37 g/dLOhioHealthComment on above:Cold Agglutinin presentMCV (RBC) [Entitic vol]93.3 fL80 - 100 fLOhioHealthMonocytes (Bld) [#/Vol]0.66 10*3/uL OhioHealthMonocytes/100 WBC (Bld)11.6 %OhioHealthNeutrophils (Bld) [#/Vol]4.01 10*3/uLOhioHealthNeutrophils/100 WBC (Bld)70.6 %OhioHealthNucleated RBC (Bld) [#/Vol]0.00 10*3/uLOhioHealthNucleated RBC/100 WBC (Bld) [Ratio]0.0 %OhioW[facility] Hospital Platelet mean volume (Bld) [Entitic vol]10.6 fL9.4 - 12.4 fLOhioHealthPlatelets (Bld) [#/Vol]179 10*3/uLOhioHealthRBC (Bld) [#/Vol]4.47 10*6/uLLowOhioHealthWBC (Bld) [#/Vol]5.69 10*3/uLOhioHealthOhioHealthCT Angiogram Abdominal Aorta With Lower Extremityon 30-60-8501Mlvlyyjnm Study observation (narrative)OhioHealthINR Coag (PPP) [Relative time]on 61-57-8920Qaehxgsyawyuih and review of laboratory resultsNormalOhioHealthPT Coag (PPP) [Time]13.7 sOhioHealthDuring the induction phase of oral anticoagulation, the INR may not reflect the anticoagulation stat us of the patient. Therapeutic ranges for INR's are: Most clinical situations: INR 2.0-3.0 Mechanical Prosthetic Valve: INR 2.5-3.5 Critical: INR >5.0OhioHealthOhioHealthLavender Topon 61-64-5286Hemwe TubeHold for add-ons.OhioHealthComment on above:Auto resulted.Mint Green Topon 04-14-2022 Extra TubeHold for add-ons.OhioHealthComment on above:Auto resulted.OhioWooster Community HospitalNo Panel Informationon 65-97-0087Ngvmu TubeHold for add-ons.OhioHealthComment on above:Auto resulted.OhioHealthOhioHealthPT/INRon 23-74-7458KKF Coag (PPP) [Relative time]1.1 {INR}0.8 - 1.1OhioHealthUS Doppler ankle/brachial indexon 84-08-3162Uendplw Info Name: TRISTIN POWELL Age: 82 years : 1940 Gender: Male Exam Date: 04/14/2022 9:45 PM Patient Status: Emergency Food Tester: Justyna Keita RVT, RDMS Attending Physician: CARSON BROCK Indications I73.9 - Peripheral vascular disease, unspecified Procedure Description 49761 Limited bilateral noninvasive physiologic studies of upper [...] and hyperlipidemia. . Report Signatures Finalized by iRchard Proctor on 04/14/2022 10:23 PMFUJI SYNAPSE CV Richard Proctor, - 04/14/2022 Patient Info Name: TRISTIN POWELL Age: 82 years : 1940 Gender: Male Exam Date: 04/14/2022 9:45 PM Patient Status: Emergency Food Tester: Justyna Keita RVT, RDMS Attending Physician: CARSON BROCK Indications I73.9 - Peripheral vascular disease, unspecified Procedure Description [id number] Limited bilateral noninvasive physiologic studies of upper [...] by Richard Proctor on 04/14/2022 10:23 PM [facility] HospitalRadiology Study observation (narrative)[facility] Doppler ankle/brachial indexOrdered By: Richard Proctor on 39-73-1207EjnrYgfmgz Work Phone: US Venous, Unilat, Lower Ext Righton 09-07-7394AA Venous, Unilat, Lower Ext RightHISTORY: Pain, swelling. [...] thrombosis. Report reported and signed by Nabor eBard on 04/14/2022 1546NormalNorthern New York Medical SpecialistCREATININEon 81-59-5782Dkgffphocf [Mass/Vol]1.32 mg/dL Critically high0.70-1.30The The Christ HospitalComment on above:Performed By: #### CREA #### [facility] [address] [place] [address] Dr. Benedict PatelGFR-AF BARBADIAN>60Normal>=60The The Christ HospitalComment on above:Performed By: #### CREA #### [facility] [address] [address] [address] Benedict PatelGFR-NON AF BARBADIAN>60Normal>=60The [facility] Pike Medical Centerment on above:Performed By: #### CREA #### [facility] [address] [place] [address] Dr. Benedict EdmondsonCT CHEST WO W CONon 61-06-0204GE CHEST WO W CONEXAMINATION: CT CHEST WO [...] Electronically authenticated by: MIKEY CALDWELL Date: 2022-01-28 17:[address] [place] [address] Auto Differentialon 84-35-3098Uanpygpun (Bld) [#/Vol]0.02 10*3/uLOhioHealthBasophils/100 WBC (Bld)0.5 %OhioHealthEosinophils (Bld) [...] 10*6/uLLowOhioHealthWBC (Bld) [#/Vol]4.08 10*3/uLLowOhioHealthOhioHealthBasic metabolic 2000 panelon 26-04-1395Hwefg gap [Moles/Vol]13 mmol/L10 - 20 mmol/LOhioHealthCalcium [Mass/Vol]9.2 mg/dL8.4 - 10.2 mg/dLOhioHealthChloride [Moles/Vol]107 mmol/L98 - 108 mmol/LOhioHealth Creatinine [Mass/Vol]0.93 mg/dL0.80 - 1.30 mg/dLOhioHealthGFR/1.73 sq M.predicted CKD-EPI (S/P/Bld) [Vol rate/Area]76- PINFOhioHealthGlucose [Mass/Vol]89 mg/dL65 - 99 mg/dLOhioHealthHCO3 [Moles/Vol]25 mmol/L21 - 32 mmol/L [facility] HospitalInterpretation and review of laboratory resultsNormalOhioHealth Potassium [Moles/Vol]4.3 mmol/L3.5 - 5.1 mmol/LOhioHealthSodium [Moles/Vol]141 mmol/L135 - 145 mmol/LOhioHealthUrea nitrogen [Mass/Vol]12 mg/dL8 - 25 mg/dL OhioWooster Community HospitalUrea nitrogen/Creatinine [Mass ratio]12.9 mg/mg10 - 20OhioHealthThe eGFR should be used for monitoring renal function only and not for medication dosing.[facility] Auto Differentialon 10-05-0292Cykefgjyn (Bld) [#/Vol]0.02 10*3/uLOhioHealthBasophils/100 WBC (Bld)0.4 %[facility] Memorial HospitalEosinophils (Bld) [#/Vol]0.18 10*3/uLOhioHealthEosinophils/100 WBC (Bld)3.8 %[facility] Erythrocyte distribution width (RBC) [Entitic vol]15.0 %High11.6 - 14.8 % [facility] HospitalHematocrit (Bld) [Volume fraction]41.6 %41 - 53 %[facility] Memorial HospitalHemoglobin (Bld) [Mass/Vol]13.7 g/dL13.5 - 17.5 g/dLNew YorkHealthImmature granulocytes (Bld) [#/Vol]0.02 10*3/uLOhioHealthImmature granulocytes/100 WBC (Bld)0.40 %[facility] Comment on above:The IG parameter is the percentage of metamyelocytes, myelocytes and promyelocytes. An immature granulocyte count (IG) of 1% or more suggests the possibility of infection, an IG count of 3% is very likely related to an infection.Interpretation and review of laboratory resultsAbnormal OhioHealthLymphocytes (Bld) [#/Vol]0.65 10*3/uLLowOhioHealthLymphocytes/100 WBC (Bld)13.7 %New YorkHealthMCH (RBC) [Entitic mass]31.5 pg26 - 34 pgOhioHealthMCHC (RBC) [Mass/Vol]32.9 g/dL31 - 37 g/dLOhioHealthComment on above:Cold Agglutinin presentMCV (RBC) [Entitic vol]95.6 fL80 - 100 fLOhioHealthMonocytes (Bld) [#/Vol]0.57 10*3/uLOhioHealthMonocytes/100 WBC (Bld)12.0 %OhioHealthNeutrophils (Bld) [#/Vol]3.32 10*3/uLOhioHealthNeutrophils/100 WBC (Bld)69.7 %[facility] Hospital Nucleated RBC (Bld) [#/Vol]0.00 10*3/uLOhioHealthNucleated RBC/100 WBC (Bld) [Ratio]0.0 %OhioHealthPlatelet mean volume (Bld) [Entitic vol]10.9 fL9.4 - 12.4 fLOhioHealthPlatelets (Bld) [#/Vol]132 10*3/uLLowOhioHealthRBC (Bld) [#/Vol]4.35 10*6/uLLowOhioHealthComment on above:Peripheral smear reviewed manuallyWBC (Bld) [#/Vol]4.76 10*3/uLOhioHealthOhioHealthBasic metabolic 2000 panelon 08-03-1423Vngnx gap [Moles/Vol]15 mmol/L10 - 20 mmol/LOhioHealthCalcium [Mass/Vol]8.4 [...] mg/dLOhioHealthUrea nitrogen/Creatinine [Mass ratio]12.0 mg/mg10 - 20 OhioHealthThe eGFR should be used for monitoring renal function only and not for medication dosing.[facility] Auto Differentialon 01-19-2022 Basophils (Bld) [#/Vol]0.02 10*3/uLOhioHealthBasophils/100 WBC (Bld)0.4 % OhioHealthEosinophils (Bld) [#/Vol]0.11 10*3/uLOhioHealthEosinophils/100 WBC (Bld)2.1 %OhioHealthErythrocyte distribution width (RBC) [Entitic vol]15.1 %High 11.6 - 14.8 %OhioHealthHematocrit (Bld) [Volume fraction]36.8 %Low41 - 53 % [...] AORTA/BRANCH VESSELS: Moderate aortic calcification without aneurysm. Upiz-yl-alizowoo atherosclerosis involving the iliac vessels without aneurysm or significant stenosis. LLE: The left common femoral to tibioperoneal trunk bypass graft is patent. 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 Again seen is [...] AORTA/BRANCH VESSELS: Moderate aortic calcification without aneurysm. Eagi-ez-klllvzcw atherosclerosis involving the iliac vessels without aneurysm or significant stenosis. LLE: The left common femoral to tibioperoneal trunk bypass graft is patent. 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 Again seen is [...] findings as described above. Workstation ID: [id number] [facility] HospitalRadiology Study observation (narrative)[facility] Angiogram Abdominal Aorta With Lower ExtremityOrdered By: Matilda Cheng on 66-08-4091PmkfVirqyf Work Phone: CT Chest Without Contraston 01-19-2022 [...] CT Images: From the Fleischner Society 2017. MacMahon, H, et al. January 2017. [employer] Workstation ID: [id number] RISEXAMINATION: CT CHEST WITHOUT [...] noted with dense calcifications seen throughout the umkumiut coronary arteries along with coronary arterial stents. [...] parenchyma, compatible with mild fatty infiltration. Rajiv Hernandez MD - 01/19/2022 EXAMINATION: CT CHEST WITHOUT [...] noted with dense calcifications seen throughout the umkumiut coronary arteries along with coronary arterial stents. [...] 2017. Laura Polo, et al. January 2017. [employer] Workstation ID: [id number] [facility] HospitalRadiology Study observation (narrative)[facility] Chest Without ContrastOrdered By: Rajiv Oscar on 27-81-1769NhipFpnapi Work Phone: ecg 12 Leadon 84-11-6098Ghyfvv Aacr41DKTVypeKnjvmoA Hufu-93eljxrdyMfzzRkgeylH-B Rljcldir588 msOhioHealthQ-T Uuevlqfp857 msOhioHealth QRS Vvipdjsv92 msOhioHealthQTC Calculation (Bezet)461 msOhioHealthR Axis39 degreesOhioHealthT Fzju39bsagmbwWgtuMypejsLvgtjndpsaz Jjsw10SPMFixrVqqyejLkbpq rhythm with occasional Premature ventricular complexes Otherwise normal ECG Confirmed by Clark Donovan M.D. ([id number]) on 01/19/2022 10:38:16 AMMUSEOhioHealthEKGon 59-53-7055Ubbmsvt by an unspecified provider.OhioHealthOhioHealthOrdered by an unspecified provider.[facility] metabolic 2000 panelon 01-18-2022 Anion gap [Moles/Vol]13 mmol/L10 - 20 mmol/LOhioHealthCalcium [Mass/Vol]9.2 mg/dL8.4 - 10.2 mg/dLOhioHealthChloride [Moles/Vol]103 mmol/L98 - 108 mmol/L [facility] HospitalCreatinine [Mass/Vol]1.10 mg/dL0.80 - 1.30 mg/dLOhioHealthGFR/1.73 sq M.predicted CKD-EPI (S/P/Bld) [Vol rate/Area]62- PINFOhioHealthGlucose [Mass/Vol]107 mg/dCAczj32 - 99 mg/dLOhioHealthHCO3 [Moles/Vol]26 mmol/L21 - 32 mmol/LOhioHealthPotassium [Moles/Vol]4.2 mmol/L3.5 - 5.1 mmol/LOhioHealthSodium [Moles/Vol]138 mmol/L135 - 145 mmol/LOhioHealthUrea nitrogen [Mass/Vol]14 mg/dL8 - 25 mg/dLOhioHealthUrea nitrogen/Creatinine [Mass ratio]12.7 mg/mg10 - 20 [facility] HospitalThe eGFR should be used for monitoring renal function only and not for medication dosing.[facility] Auto Differentialon 14-91-8674Nkwekmdhr (Bld) [#/Vol]0.02 10*3/uLOhioHealthBasophils/100 WBC (Bld)0.3 %[facility] HospitalEosinophils (Bld) [#/Vol]0.14 10*3/uLOhioHealthEosinophils/100 WBC (Bld)2.1 %[facility] Erythrocyte distribution width (RBC) [Entitic vol]15.3 %High11.6 - 14.8 % [facility] HospitalHematocrit (Bld) [Volume fraction]39.2 %Low41 - 53 %[facility] Hemoglobin (Bld) [Mass/Vol]14.0 g/dL13.5 - 17.5 g/dLOhioHealthImmature granulocytes (Bld) [#/Vol]0.02 10*3/uLOhioHealthImmature granulocytes/100 WBC (Bld)0.30 %OhioWooster Community HospitalComment on above:The IG parameter is the percentage of metamyelocytes, myelocytes and promyelocytes. An immature granulocyte count (IG) of 1% or more suggests the possibility of infection, an IG count of 3% is very likely related to an infection.Interpretation and review of laboratory results AbnormalOhioHealthLymphocytes (Bld) [#/Vol]0.75 10*3/uLLowOhioHealth Lymphocytes/100 WBC (Bld)11.1 %[facility] HospitalMCH (RBC) [Entitic mass]33.3 pg26 - 34 pgOhioHealthMCHC (RBC) [Mass/Vol]35.7 g/dL31 - 37 g/dLOhioHealthMCV (RBC) [Entitic vol]93.1 fL80 - 100 fLOhioHealthMonocytes (Bld) [#/Vol]0.78 10*3/uL OhioHealthMonocytes/100 WBC (Bld)11.5 %OhioHealthNeutrophils (Bld) [#/Vol]5.05 10*3/uLOhioHealthNeutrophils/100 WBC (Bld)74.7 %OhioWooster Community HospitalNucleated RBC (Bld) [#/Vol]0.00 10*3/uLOhioHealthNucleated RBC/100 WBC (Bld) [Ratio]0.0 %[facility] Platelet mean volume (Bld) [Entitic vol]10.4 fL9.4 - 12.4 fLOhioHealthPlatelets (Bld) [#/Vol]150 10*3/uLOhioHealthRBC (Bld) [#/Vol]4.21 10*6/uLLowOhioHealthWBC (Bld) [#/Vol]6.76 10*3/uLOhioHealthOhioHealthCRP, Inflammationon 37-24-2833LMQ [Mass/Vol]63.5 mg/LHigh0 - 10 mg/LOhioHealthECG 12 Leadon 12-83-1618Ydbctp Jagruti Mcguire MD 01/18/2022 11:27 PM ECG 12 Lead Date/Time: 01/18/2022 11:27 PM Performed by: Mikey Mcguire MD Authorized by: Mikey Mcguire MD Interpreted by ED attending physician Rhythm: sinus rhythm BPM: 76 Ectopy: PVCs Conduction: conduction normal ST Segments: ST segments normal T Waves: T waves normal Clinical impression: non-specific ECGOhioHealthOhioHealthESR Westergren method (Bld) [Velocity]on 69-67-4342MUM (Bld) [Velocity]18 mm/hOhioHealthInterpretation and review of laboratory resultsNormalOhioHealthOhioHealthGrey Topon 01-18-2022 Extra TubeHold for add-ons.New YorkHealthComment on above:Auto resulted.OhioHealthNo Panel Informationon 05-20-5630Mspmb TubeHold for add-ons.OhioHealthComment on above:Auto resulted.OhioWooster Community HospitalInterpretation and review of laboratory results AbnormalOhioHealthOhioWooster Community HospitalPO Venous Blood Gases with Full PanelOrdered By: Elana Chavez on 49-95-4779Uiaj excess Calc (BldV) [Moles/Vol]0.2 mmol/L-2 - 2 OhioHealthCalcium.ionized [Mass/Vol]4.7 mg/dL4.5 - 5.3 mg/dLOhioHealthChloride [Moles/Vol]104 mmol/L98 - 108 mmol/LOhioHealthCO2 (BldV) [Partial pressure]41.3 mm[Hg]OhioHealthCO2 [Moles/Vol]25 mmol/L21 - 32 mmol/LOhioHealthCreatinine [Mass/Vol]1.35 mg/dLHigh0.80 - 1.30 mg/sUShliCopzozDPF77Wfu- PINFOhioHealth Glucose [Mass/Vol]98 mg/dL65 - 99 mg/dLOhioHealthHematocrit [...] function only and not for medication dosing. [facility] CenterioHealthPink Topon 92-29-6714UsnhXgorlpWZ Ankle Left 3+ Views (Standard)on 29-56-5178SPDOIZQZ/ Distal fibula ORIF. Patient is status post [...] symptoms: k ORDERING SYSTEM PROVIDED DIAGNOSIS CODES: COMPARISON: 01/18/2022 IMPRESSION: FINDINGS/ Distal fibula ORIF. 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 No acute periosteal reaction. Severe tibiotalar osteoarthritis. Diffuse soft tissue edema about the remainder of the foot. No soft tissue gas. Vascular atherosclerotic soft tissue calcifications. Workstation ID: [id number] [facility] Health AdministrationRadiology Study observation (narrative)OhioWooster Community HospitalXR Tibia Fibula Left 2 Viewson 59-25-2866MOFLLWQY/ Distal fibular ORIF without evidence of hardware [...] obvious large fluid collection. Workstation ID: [id number] [facility] HospitalRadiology Study observation (narrative)[facility] HospitalXR Tibia Fibula Left 2 ViewsOrdered By: Mikey Huerat on 17-27-1305VhknFivxmk Work Phone: [facility] [phone] BAS0.0 10*3/uLNormal0.0-0.2 [facility] HospitalComment on above:Result Comment: Testing performed at [place], [place] [address]Hudcwqxtj By: #### ACBC #### Testing performed at [address], [place] [address]LADNWTVY EOS0.00 10*3/uLNormal0.0-0.7AB[facility] Comment on above:Performed By: #### ACBC #### Testing performed at [address] [address]RDCOXRJG NEUTROPHIL COUNT8.7 10*3/uLHigh1.4-6.5ABlanchard Valley Health System Bluffton HospitalComment on above:Performed By: #### ACBC #### Testing performed at [address] [address]Egtfqrsva/100 WBC (Bld)0.0 %Normal0.0-2.0[facility] Comment on above:Performed By: #### ACBC #### Testing performed at [address] [address]AZOBLATUH DIFFNormalABlanchard Valley Health System Bluff[facility] HospitalComment on above: Performed By: #### ACBC #### Testing performed at [address] [address]Dafmhknixhm/100 WBC (Bld)0.0 %Normal0.0-11.0Flower HospitalComment on above:Performed By: #### ACBC #### Testing performed at [address] [address]Idrbiwbaskx (Bld) [#/Vol]0.40 10*3/uLLow1.2-3.4ABlanchard Valley Health System Bluff[facility] HospitalComment on above:Performed By: #### ACBC #### Testing performed at [address] [address]Yaxcmoqgkic/100 WBC (Bld)4.2 %Low20.0-55.0[facility] Comment on above:Performed By: #### ACBC #### Testing performed at [address] [address]Kkxupgnds (Bld) [#/Vol]0.9 10*3/uLHigh0.0-0.7ABlanchard Valley Health [facility] HospitalComment on above:Performed By: #### ACBC #### Testing performed at [address] [address]Panjgsglo/100 WBC (Bld)8.9 %Normal0.0-10.0[facility] Comment on above:Performed By: #### ACBC #### Testing performed at [address] [address]Dlyjvcqdsdv/100 WBC (Bld)86.9 %High37.0-75.0Flower HospitalComment on above:Performed By: #### ACBC #### Testing performed at [address] [address]Folxmbameit distribution width (RBC) [Ratio]15.4 %High11.5-14.5 [facility] HospitalComment on above:Performed By: #### ACBC #### Testing performed at [address] [address]Uvxmpfhdeq (Bld) [Volume fraction]34.2 %Low42.0-52.0Flower HospitalComment on above:Performed By: #### ACBC #### Testing performed at [address] [address]Vmkdtpajmh (Bld) [Mass/Vol]11.7 g/dLLow14.0-18.0[facility] HospitalComment on above:Performed By: #### ACBC #### Testing performed at [address] [address]WSL (RBC) [Entitic mass]31.4 vgEejddh75.0-35.0F[facility] HospitalComment on above:Performed By: #### ACBC #### Testing performed at [address] [address]RMCW (RBC) [Mass/Vol]34.3 g/pHEkybtb43.0-37.0Flower HospitalComment on above:Performed By: #### ACBC #### Testing performed at [address] [address]BXA (RBC) [Entitic vol]91.6 qULjbeko30.0-100.0Flower HospitalComment on above:Performed By: #### ACBC #### Testing performed at [address] [address]Fiwyatjh mean volume (Bld) [Entitic vol]8.2 fLNormal7.4-11.0 Flower HospitalComment on above:Result Comment: Testing performed at [place] [address]Performed By: #### ACBC #### Testing performed at [address] [address]Esadtrhtg (Bld) [#/Vol]127 10*3/wCRgr130.0-400.0Flower HospitalComment on above:Performed By: #### ACBC #### Testing performed at [address] [address]BRP (Bld) [#/Vol]3.73 10*6/uLLow4.0-6.1ABlanch[facility] Comment on above:Performed By: #### ACBC #### Testing performed at [address] [address]TMV (Bld) [#/Vol]10.0 10*3/uLNormal3.6-11.0[facility] Comment on above:Performed By: #### ACBC #### Testing performed at [place] [address]NOVEL CORONAVIRUSon 61-31-1836LWLTYTEDGPhqt test was performed using isothermal OREN and has been approved as Emergency Use Authorization (EUA) for the qualitative detection gpYLBJ-JkC-0 nucleic acid.[facility] HospitalComment on above:Result Comment: Testing performed at [place] [address]Performed By: #### COVID #### Testing performed at [address] [address]ZSED-HfN-8 (COVID-19) RNA OREN+probe Ql (Unsp spec)Not detected NormalNOT DETECTEDFlower HospitalCommymichigan medical center sag[facility] on above:Result Comment: Negative results do not [...] By: #### COVID #### Testing performed at [address] [address]GXIB AND SCREEN CROSSMATCH CONVERTIBLEon 93-07-8716ALSC AND SCREEN CROSSMATCH CONVERTIBLEWORKUP EXPIRES 07/18/2021,2359 ABO/RH(D) O POSITIVE ANTIBODY SCREEN NEGATIVE ARM BAND NUMBER [id number] Testing performed at [place], [place] [address]TeeyxyErereFort Defiance Indian HospitalComment on above:Performed By: #### TSCC #### Testing performed at [address] [address]Vmltf Metabolic Panelon 47-90-3531Exzkkpr [Mass/Vol]9.6 mg/dL Normal8.5-10.6[facility] OhioChloride [Moles/Vol]105 mmol/LNormal 98-107[facility] OhioCO2 [Moles/Vol]29 mmol/KMeubmc76-09Tlxus [facility] OhioCreatinine [Mass/Vol]0.99 mg/dLNormal0.70-1.30[facility] OhioGlucose [Mass/Vol]92 mg/qAWxcmwq79-74Ixmln [facility] OhioPotassium [Moles/Vol]4.6 mmol/LNormal3.5-5.1[facility] Hospitalodium [Moles/Vol] 142 mmol/EKhqpte998-379Oqcek [facility] OhioUrea nitrogen (BldV) [Mass/Vol] 15 mg/dLNormal7.0-18.0[facility] OhioUrea nitrogen/Creatinine [Mass ratio]15 mg/mgNormalMount [facility] OhioCBC with Differentialon 05-27-2020 Basophils (Bld) [#/Vol]0.0 thou/mcLNormal0.0-0.2[facility] [place] Basophils/100 WBC (Bld)0.7 %Normal0-3[facility] OhioDifferential cell count method Nom (Bld)AUTOMATED DIFFERENTIALNormalMount [facility] [place] Eosinophils (Bld) [#/Vol]0.0 thou/mcLNormal0.0-0.4[facility] [place] Eosinophils/100 WBC (Bld)1.2 %Normal0-7Mount [facility] OhioLymphocytes (Bld) [#/Vol]0.6 thou/mcLLow0.7-4.5Mount [facility] OhioLymphocytes/100 WBC (Bld)18.3 %Kjwegn74-28Dagpg [facility] OhioMonocytes (Bld) [#/Vol]0.5 thou/mcLNormal0.1-1.0[facility] OhioMonocytes/100 WBC (Bld)13.2 %High 4-13Mount [facility] OhioNeutrophils (Bld) [#/Vol]2.3 thou/mcLNormal1.5-7.8 [facility] NorthNeutrophils/100 WBC (Bld)66.6 %Dhvqyh81-41Xxpjh [facility] OhioErythrocyte distribution width (RBC) [Entitic vol]16.1 %High 11.7-15.0[facility] OhioHematocrit (Bld) [Volume fraction]38.2 % Iarcjg99.0-50.0[facility] OhioHemoglobin (Bld) [Mass/Vol]13.6 g/dL Lhbzwn44.5-17.0[facility] OhioMCH (RBC) [Entitic mass]33.2 Picograms Aesziz80.0-34.0[facility] OhioMCHC (RBC) [Mass/Vol]35.6 g/dLNormal 32.0-36.0[facility] OhioMCV (RBC) [Entitic vol]93.2 cNOngxov84-35 [facility] NorthPlatelet mean volume (Bld) [Entitic vol]8.6 fLNormal 7.5-11.2MMercy Health St. Joseph Warren HospitalPlatelets (Bld) [#/Vol]179 thou/mcLNormal 140-415MoMercy Health Clermont HospitalComment on above:Result Comment: Verified by repeat analysisRBC (Bld) [#/Vol]4.10 x(10)6/mcLNormal3.80-5.60Mount [facility] OhioWBC (Bld) [#/Vol]3.5 thou/mcLLow4.0-10.5MoMercy Health Clermont Hospital Comment on above:Result Comment: VERIFIED BY SLIDE REVIEWPartial Thromboplastin Time (aPTT)on 24-33-4655uFUQ Coag (PPP) [Time]27.4 AbrZisjvd34.2-34.6MMercy Health St. Joseph Warren HospitalProthrombin Timeon 30-36-7870SGX Coag (Bld) [Relative time] 1.1 {INR}NormalSelect Medical Specialty Hospital - Cincinnati NorthComment on above:Result Comment: DURING THE INDUCTION PHASE OF ORAL ANTICOAGULATION, THE INR MAY NOT REFLECT THE ANTICOAGULANT STATUS OF THE PATIENT. THERAPEUTIC RANGES FOR INR'S ARE: MOST CLINICAL SITUATIONS: INR 2.0-3.0 MECHANICAL PROSTHETIC VALVES: INR 2.5-3.5 CRITICAL: INR 5.0PT Coag (PPP) [Time]14.5 OapJfgnuy89.9-14.6MMercy Health St. Joseph Warren HospitalUS DOPPLER CAROTIDon 47-08-9262Fxr-Invasive Vascular Patient: SHERRY Jones Rec#: [id number] (Age): 1940(80y) Study Date: 03/16/2020 Room#: Type: Outpatient Sex: M Reading: Radha Su DO, RVT, RPVI, FSVM Referring: Mohsen Sarabia MD, RPVI Assembler Body: Angela Giron RVT, RDMO Procedure Info: [id number]... Study Quality: Diagnosis: I65.23 Occlusion and stenosis of bilateral carotid arteries Carotid Duplex (Previous study 03/18/2019 ) Conclusions There was a 40-59% stenosis in the right internal carotid artery.The right vertebral artery was patent with antegrade flow. Unchanged compared to prior study There was a 40-59% stenosis in the left internal carotid artery. The left vertebral artery was patent withantegrade flow. Progression of disease compared to prior [...] Name Value Units PCCA 107 cm/sec DCCA 81cm/sec PICA 122 cm/sec BENNY 82 cm/sec DICA 75 cm/sec ECA 159 cm/sec Vertebral 61 cm/sec Left Carotid EDV Name Value Units PCCA 8 cm/sec DCCA 11 cm/sec PICA 26 cm/sec BENNY 18 cm/sec DICA 11 cm/secECA 0 cm/sec Vertebral 10 cm/sec Blood Pressures and Ratios Name Value Units R ICA/CCA 1.39 ratio LICA/CCA 1.51 ratio Electronically signed at 03/16/2020 13:09:31 by: Radha Su DO, RVT, NATANAEL, FSYVESOhioHealthInterface, Rad In Heartlab Xper Echopacs - 03/16/2020 1:20 PM EDT Non-Invasive Vascular Patient: SHERRY Bazan [facility] Rec#: [id number] (Age): 1940(80y) Study Date: 03/16/2020 Room#: Type: Outpatient Sex: M Reading: Radha Su DO, RVT, NATANAEL, FSVM Referring: Mohsen Sarabia MD, RPLUIZA Assembler Body: Angela Giron RVT, RDMS Procedure Info: [id number]... 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 No evidence of small vessel disease at the digital level in the right f oot. Left ankle brachial index is normal. Unable to evaluate digits on 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No evidence of small vessel disease noted at the transmetatarsal level in the right foot. Unable toevaluate small vessels in the left foot due [...] 03/16/2020 13:08:20 by: Radha Su DO, RVT, RPVI, FSVMOhioHealthInterface, Rad In Heartlab Xper 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 Lower [...] at 03/16/2020 13:08:20 by: Radha Su DO, DENIZT, RPVI, FSVMOhioHealthPatient Portal Messageon 43-13-6077Blkznty Portal Message--- --- --- --- --- --- --- --- --- From: Hospital, Patient Summary Visit To: TRISTIN POWELL Sent: 11/30/19 01:31:27 AM EDT Subject: New Results Available A summary regarding your recent visit is available in the Documents section of your Health Record.NormalMount [facility] Hospital [facility] OhioCBCon 55-83-9454Kiesphqacjz distribution width (RBC) [Entitic vol]14.3 %Grpuin73.7-15.0[facility] OhioHematocrit (Bld) [Volume fraction]33.8 %Low34.0-50.0[facility] OhioHemoglobin (Bld) [Mass/Vol]11.8 g/pAZoniip58.5-17.0Mount [facility] CenterH (RBC) [Entitic mass]31.4 GzkcpdtusEsnfxm85.0-34.0[facility] OhioMCHC (RBC) [Mass/Vol]35.0 g/aSUkyjfu54.0-36.0[facility] OhioMCV (RBC) [Entitic vol]89.8 rISpcmoy13-54Geurf [facility] OhioPlatelet mean volume (Bld) [Entitic vol]8.7 fLNormal7.5-11.2[facility] [place] Platelets (Bld) [#/Vol]152 thou/dgUPqekqn252-159Ftizd [facility] OhioRBC (Bld) [#/Vol]3.77 x(10)6/mcLLow3.80-5.60[facility] OhioW (Bld) [#/Vol]10.2 thou/mcLNormal4.0-10.5[facility] OhioOR Nursingon 47-34-0767LP NursingCO NA OR Nursing Record Summary Primary Physician: Ramana Cason MD Finalized Date/Time: 11/29/19 11:47:30 Pt. Name: TRISTIN POWELL/Sex: 1940 Male Med Rec #: [id number] Physician: Ramana Cason MD Financial #: [id number] Pt. Type: I Room/Bed: [facility] Admit/Disch: 11/28/19 05:01:00 - Institution: [place] NA [...] , Nabor Role Performed Primary Surgeon Physician Home Health Care Provider Anesthesiologist Time In 11/28/19 06:30:00 11/28/19 06:55:00 [...] 4 Entry 5 Entry 6 Case Attendee Mary Kate Baptiste RN, RN , Marichuy Montesinos Role Performed air quality instrument specialist air quality instrument specialist First Scrub Time In 11/28/19 06:30:00 [...] Decompression(Cervical) Decompression(Cervical) Decompression(Cervical) Attendee Comment orientation jagruti vesshahnaz Relief Reason Last Modified By: Emile RN , Mary Kate Baptiste RN , Mary Kate Baptiste RN , Mary Kate Arteaga 11/28/19 09:16:36 11/28/19 09:16:36 11/28/19 09:16:36 Entry 10 Entry 11 Entry 12 Case Attendee Case, Attendee Other Yang Zuniga MD , Ramana Ontiveros Role Performed Senior Ui Designer Radiologist Surgeon Time In 11/28/19 07:02:00 11/28/19 07:20:00 [...] 11/28/19 09:16:36 CO NA OR General Case Graduate Fellow 1 OR CO NA 01 ASA Class [...] SILICONE Present on Arrival? No NATALIE 15FR [id number] Location POSTERIOR NECK Inserted By Ben Saha [...] UNITS 1 VIAL POWDER VANCOCIN POWDER TOPICAL 83166-898-10 Medication Dosage 1 sheet 5000 UNITS 1 g Route of TOPICAL TOPICAL TOPICAL Administration Meds Administered By Ramana Cason MD, MD , Ben Padilla Medication Comment Last Modified By: Mack RN [...] by Surgeon Implant Identification Description Lineum plugs [id number] Lineum screw 3.5x14mm BETHEL LINEUM PRE-CURVED Type1 Occipital [id number] CERVICAL [id number] Assistant Coach [employer] Catalog Number [id number] Lot Number na na na Serial Number [...] J Roffey, Danielle J Last Modified By: Emile LIGHT , Mary Kate Baptiste RN , Mary Kate Danielle RN 11/28/19 08:25:45 11/28/19 08:25:45 11/28/19 08:34:59 CO [...] PER ANESTHESIA Warm blankets Last Modified By: Mayr Kate Baptiste RN 11/28/19 07:22:23 CO NA [...] RN 11/28/19 09:16 Karen Giron RN 11/29/19 11:47NoOhio Valley Surgical HospitalPatient Summaryon 41-02-9164Tjzanra SummaryPATIENT DISCHARGE INSTRUCTIONS If you are having an emergency and are not able to reach your physician, CALL 911 or go to the nearest emergency room and take this document with you. [facility] 11/29/19 11:09 [address] [place]. [address] PATIENT INFORMATION Name: TRISTIN POWELL Address: [address] [facility] [address] Age: 79 Years Phone: [phone] : 1940 12:00 MRN: [id number] Sex: Male Race: White Ethnicity: Not Hispan/Lat Admitted From: Clinic or [facility] Medical Service: Orthopedic Surgery Nurse Unit/Bed: (TN) 2N 0208-01 Admit Date: 11/28/2019 05:01 PCP: Flash Lovelace MD PHYSICIANS INVOLVED WITH CARE Attending Physicians: Ramana Cason MD - Orthopaedic Surg Admitting Physician: Ramana Cason MD - Orthopaedic Surg Primary Care Physician:Flash Lovelace MD,Family Practice, - Consults: IWONA Wren - Internal Medicine FOLLOW-UP APPOINTMENTS: Provider: Specialty: Address: Date: Ramana Cason MD Orthopaedic Surg [address] [place] [address] (1) Two Weeks Comment: Call for an Appointment Provider: Specialty: Address: Date: Flash Lovelace MD Family Practice [address] [place] [address] (1) Follow-up as needed ALLERGIES: No Known [...] doses are changed, or new medications (including qkys-yjt-vvqherj products) are added. Ask your doctor if [...] suicide hotline, anytime day or night, at 1-360-386-SLNF. Important information about accessing your health information through the [facility] patient portal If you initiated the self-registration process for [facility] during your stay, please check your personal email for an invitation to enroll in [employer] and complete the steps outlined in the email. If you would prefer to enroll while in the hospital, ask a member of your care team. We would be happy to assist you. If you have already enrolled in [facility], go to [email or web address] to login and access your health information. Thank you for choosing [facility]. PATIENT EDUCATION Incentive Spirometer An incentive spirometer [...] 12/25/2007 Document Revised: 09/04/2015 Document Reviewed: 03/23/2015 Else[employer]H Interactive Patient Education ?2016 [employer] Venous Thromboembolism, Prevention A venous thromboembolism [...] 08/02/2010 Document Revised: 05/08/2013 Document Reviewed: 12/09/2015 [employer] Interactive Patient Education ?2016 [employer] Preventing Constipation After Surgery Constipation is [...] a bowel movement. ???Having hard, dry, or ubmlap-hwhh-quhgaj stools. ???Feeling full or bloated. ???Having pain in the lower abdomen. ???Not feeling relief after having a bowel movement. HOME CARE INSTRUCTIONS Diet ???Eat foods that have a lot of fiber. These include fruits, vegetables, whole grains, and beans. Limit foods high in fat and processed sugars. These include guatemalan fries, hamburgers, cookies, and candy. ???Take a [...] softener, laxative, or fiber supplement. ???Only take qyan-jdh-dvelkae or prescription medicines as directed by your [...] 12/09/2013 Document Revised: 09/04/2015 Document Reviewed: 12/09/2013 [employer] Interactive Patient Education ?2016 [employer] Pain Medicine Instructions HOW CAN PAIN [...] liver damage. Acetaminophen is found in many xtzc-pfk-nqochki (OTC) and prescription medicines. If you are [...] 11/20/2001 Document Revised: 12/29/2015 Document Reviewed: 06/18/2015 [employer] Interactive Patient Education ?2016 [employer] PATIENT DISCHARGE INSTRUCTION Signature Page for: TRISTIN POWELL Date/Time: 11/29/2019 11:09:09 A Clinician has explained the information on my discharge instructions and has provided me with a copy. My questions have been answered to my satisfaction. Patient Signature Date/Time Responsible Party Date/Time Relationship to Patient Clinician Signature Date/Time NormalMount [facility] OhioTroponin Ion 69-16-6974Fglibpnk I.cardiac [Mass/Vol]0.03 ng/mLNormal<0.06Mount [facility] OhioMagnesium Levelon 27-49-8711Ksukqygmv [Mass/Vol]2.3 mg/dLNormal1.8-2.4Mount [facility] [place] PACU I Nursingon 34-01-4921JKJN I NursingCO NA PACU I Nursing Record Summary Primary Physician: Ramana Cason MD Finalized Date/Time: 11/28/19 10:38:07 Pt. Name: TRISTIN POWELL/Sex: 1940 Male Med Rec #: [id number] Physician: Ramana Cason MD Financial #: [id number] Pt. Type: I Room/Bed: / Admit/Disch: 11/28/19 [...] Signatures Signed By: Richie Huerta RN 11/28/19 10:38NormalSelect [facility] NorthPreOp Nursingon 33-88-5537BdtPx NursingCO NA PreOp Nursing Record Summary Primary Physician: Ramana Cason MD Finalized Date/Time: 11/28/19 07:11:59 Pt. Name: TRISTIN POWELL/Sex: 1940 Male Med Rec #: [id number] Physician: Ramana Cason MD Financial #: [id number] Pt. Type: I Room/Bed: / Admit/Disch: 11/28/19 [...] By: Mary Kate Baptiste RN 11/28/19 07:11NormalMount [facility] OhioTroponin Ion 83-23-0344Evmfbums I.cardiac [Mass/Vol]ng/mLNormal<0.06Mount [facility] OhioTroponin I.cardiac [Mass/Vol]ng/mLNormal<0.06Mount [facility] [place] Basic Metabolic Panelon 69-79-8101Jynippn [Mass/Vol]9.6 mg/dLNormal8.5-10.6Mount [facility] OhioChloride [Moles/Vol]105 mmol/ETxcvgd90-176Fbuni [facility] OhioCO2 [Moles/Vol]28 mmol/JLxxjtw39-66Fzsyg [facility] [place] Creatinine [Mass/Vol]1.12 mg/dLNormal0.70-1.30Mount [facility] OhioGlucose [Mass/Vol]91 mg/cHXkysbp93-89Yaskn [facility] OhioPotassium [Moles/Vol]4.9 mmol/LNormal3.5-5.1[facility] Hospitalodium [Moles/Vol]141 mmol/LNormal 136-145Mount [facility] OhioUrea nitrogen (BldV) [Mass/Vol]23 mg/dLHigh 7.0-18.0[facility] OhioUrea nitrogen/Creatinine [Mass ratio]21 mg/mg NormalMount [facility] OhioCBC with Differentialon 56-25-4375Fcajhrcmi (Bld) [#/Vol]0.0 thou/mcLNormal0.0-0.2Mount [facility] OhioBasophils/100 WBC (Bld)0.9 %Normal0-3Mount [facility] OhioDifferential cell count method Nom (Bld)AUTOMATED DIFFERENTIALNormalMount [facility] OhioEosinophils (Bld) [#/Vol]0.1 thou/mcLNormal0.0-0.4Mount [facility] OhioEosinophils/100 WBC (Bld)2.1 %Normal0-7Mount [facility] OhioLymphocytes (Bld) [#/Vol]0.8 thou/mcLNormal0.7-4.5Mount [facility] OhioLymphocytes/100 WBC (Bld)19.7 % Bpgdgx83-54Izjnc [facility] OhioMonocytes (Bld) [#/Vol]0.7 thou/mcLNormal 0.1-1.0Mount [facility] OhioMonocytes/100 WBC (Bld)16.0 %High4-13Mount [facility] OhioNeutrophils (Bld) [#/Vol]2.5 thou/mcLNormal1.5-7.8Mount [facility] OhioNeutrophils/100 WBC (Bld)61.3 %Iqcgnl38-62Yyttb [facility] OhioErythrocyte distribution width (RBC) [Entitic vol]14.2 %Normal 11.7-15.0Mount [facility] OhioHematocrit (Bld) [Volume fraction]39.8 % Eqkwxi16.0-50.0Mount [facility] OhioHemoglobin (Bld) [Mass/Vol]13.8 g/dL Eqlcll57.5-17.0Mount [facility] OhioMCH (RBC) [Entitic mass]31.7 Picograms Ectrpk80.0-34.0Mount [facility] OhioMCHC (RBC) [Mass/Vol]34.6 g/dLNormal 32.0-36.0Mount [facility] OhioMCV (RBC) [Entitic vol]91.6 wNVpeywe03-38 [facility] NorthPlatelet mean volume (Bld) [Entitic vol]8.2 fLNormal 7.5-11.2Mount [facility] OhioPlatelets (Bld) [#/Vol]191 thou/mcLNormal 140-415Mount [facility] OhioRBC (Bld) [#/Vol]4.34 x(10)6/mcLNormal3.80-5.60 [facility] NorthWBC (Bld) [#/Vol]4.1 thou/mcLNormal4.0-10.5MoMercy Health Clermont HospitalComment on above:Result Comment: VERIFIED BY SLIDE REVIEW Partial Thromboplastin Time (aPTT)on 49-33-8249qXHB Coag (PPP) [Time]28.5 Sec Epoftj26.2-34.6MMercy Health St. Joseph Warren HospitalProthrombin Timeon 95-03-3859HSP Coag (Bld) [Relative time]1.1 {INR}NormalMoMercy Health Clermont HospitalComment on above: Result Comment: DURING THE INDUCTION PHASE OF ORAL ANTICOAGULATION, THE INR MAY NOT REFLECT THE ANTICOAGULANT STATUS OF THE PATIENT. THERAPEUTIC RANGES FOR INR'S ARE: MOST CLINICAL SITUATIONS: INR 2.0-3.0 MECHANICAL PROSTHETIC VALVES: INR 2.5-3.5 CRITICAL: INR 5.0PT Coag (PPP) [Time]14.5 GwxYntzdg74.9-14.6MMercy Health St. Joseph Warren HospitalCT Angiogram Abdominal Aorta With Lower Extremityon 86-23-9935Vzicyo left femoral to tibioperoneal trunk bypass graft which bypasses an occluded [place] distal superficial femoral artery. Infrapopliteal peripheral arterial [...] artery:Single renal artery is present. There is psam-gw-ywduglum, 50-70%, narrowing of the ostium of the [...] femoral artery: There is occlusion of the [place] superficial femoral artery in its distal aspect [...] hips. There also degenerative changes in the spine.[facility] HospitalInterast[facility] - 10/21/2019 2:57 PM EST EXAMINATION: CTA [...] artery:Single renal artery is present. There is jdbb-nv-boncievn, 50- 70%, narrowing of the ostium of [...] femoral artery: There is occlusion of the [place] superficial femoral artery in its distal aspect [...] trunk bypass graft which bypasses an occluded [place] distal superficial femoral artery. Infrapopliteal peripheral arterial [...] moderate hiatal hernia. Workstation ID: [id number] Creatinineon 84-11-1959Sjvstcziwm [Mass/Vol] 1.1 mg/dL0.8 - 1.3 mg/dLOhioHealthInterpretation and review of laboratory resultsNormalOhioHealthUltrasound ankle / brachial indices extremity completeon 49-88-4278Fsq-Invasive Vascular Patient: SHERRY Bazan [facility] Rec#: [id number] (Age): 1940(79y) Study Date: 10/09/2019 Room#: Type: Outpatient Sex: M Reading: Nemo Conner MD, PhD, RVT Referring: Mohsen Sarabia MD, RPVI Assembler Body: Andre Madrid RDCS/RVShahnaz Procedure Info: [id number] Study Quality: Lower Arterial Doppler: adequate Diagnosis: [...] 15:10:46 by: Nemo Conner MD, PhD, RVT [facility] In Heartlab [facility] - 10/09/2019 4:01 PM EST Non- Invasive Vascular Patient: SHERRY Bazan [facility] Rec#: [id number] (Age): 1940(79y) Study Date: 10/09/2019 Room#: Type: Outpatient Sex: M Reading: Nemo Conner MD, PhD, RVT Referring: Mohsen Sarabia MD, RPVI Assembler Body: Andre Madrid RDCS/DENIZT Procedure Info: [id number] Study Quality: Lower Arterial Doppler: adequate Diagnosis: [...] MD, PhD, RVTOhioHealthUltrasound duplex arterial leg lefton 49-20-0797Izc-Invasive Vascular Patient: SHERRY Bazan [facility] Rec#: [id number] (Age): 1940(79y) Study Date: 10/09/2019 Room#: Type: Outpatient Sex: M Reading: Nemo Conner MD, PhD, RVT Referring: ALENA Assembler Body: Andre Madrid RDCS/RVShahnaz Procedure Info: [id number] Study Quality: Graft Duplex: adequate Diagnosis: I73.9 Peripheral vascular disease, unspecified Graft Duplex Conclusions Left: Patent femoral to peroneal artery bypass graft with no evidence of hemodynamically significant stenosis. The procedure was explained to the patient. The patient voiced understanding. Measurements Left PSV Name Value Units EIA 151 cm/sec HOUSETRAILER SERVICER 115 cm/sec Left Graft #1 PSV Name Value Units Inflow Artery 76.8 cm/sec Prox Anastomosis 102 cm/sec Prox Graft 80.7 cm/sec Mid Graft 60.3 cm/sec Dist Graft 69.6 cm/sec Dist Anastomosis 44.1 cm/sec Outflow Artery 72.1 cm/sec History CAD. Hypertension. History Comments:Left transmetatarsal amputation. Electronically signed at 10/09/2019 15:14:54 by: Nemo Conner MD, PhD, RVT [facility] 10/09/2019 4:01 PM EST Non- Invasive Vascular Patient: SHERRY Bazan [facility] Rec#: [id number] (Age): 1940(79y) Study Date: 10/09/2019 Room#: Type: Outpatient Sex: M Reading: Nemo Conner MD, PhD, RVT Referring: ALENA Assembler Body: Andre Madrid RDCS/RVT Procedure Info: [id number] Study Quality: Graft Duplex: adequate Diagnosis: I73.9 Peripheral vascular disease, unspecified Graft Duplex Conclusions Left: Patent femoral to peroneal artery bypass graft with no evidence of hemodynamically significant stenosis. The procedure was explained to the patient. The patient voiced understanding. Measurements Left PSV Name Value Units EIA 151 cm/sec HOUSETRAILER SERVICER 115 cm/sec Left Graft #1 PSV Name Value Units Inflow Artery 76.8 cm/sec Prox Anastomosis 102 cm/sec Prox Graft 80.7 cm/sec Mid Graft 60.3 cm/sec Dist Graft 69.6 cm/sec Dist Anastomosis 44.1 cm/sec Outflow Artery 72.1 cm/sec History CAD. Hypertension. History Comments:Left transmetatarsal amputation. Electronically signed at 10/09/2019 15:14:54 by: Nemo Conner MD, PhD, TOhioHealUS DOPPLER CAROTIDon 41-37-8754Qbv-Invasive Vascular Patient: SHERRY Bazan [facility] Rec#: [id number] (Age): 1940(79y) Study Date: 03/18/2019 Room#: Type: Outpatient Sex: M Reading: Radha Su DO, RVT, RPVI, FSVM Referring: Mohsen Sarabia MD, RPLUIZA Assembler Body: Angela Giron RVT, RDMO Procedure Info: [id number]... Study Quality: Diagnosis: I65.23 Occlusion and stenosis [...] cm/sec ECA 197 cm/sec Vertebral 80 cm/sec RightCarotid EDV Name Value Units PCCA 4 cm/sec [...] BENNY 16 cm/sec DICA 14 cm/sec ECA 0cm/sec Vertebral 7 cm/sec Blood Pressures and Ratios Name Value Units R ICA/CCA 1.57 ratio L ICA/CCA 1.23 ratio Electronically signed at 03/18/2019 10:28:46 by: Radha Su DO, RVT, NATANAEL, FSYVESOhioHealthInterfaceAnton In Heartlab [facility] - 03/18/2019 10:30 AM EDT Non-Invasive Vascular Patient: SHERRY Bazan [facility] Rec#: [id number] (Age): 1940(79y) Study Date: 03/18/2019 Room#: Type: Outpatient Sex: M Reading: Radha Su DO, RVT, NATANAEL, FSVM Referring: Mohsen Sarabia MD, NATANAEL Assembler Body: Angela Giron RVT, RDMS Procedure Info: [id number]... 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 Lower [...] 03/13/2019 12:54:02 by: Meir Aguillon MD, NATANAEL [facility] In Heartlab [facility] - 03/13/2019 1:02 PM EDT Non- Invasive Vascular Patient: SHRERY Bazan [facility] Rec#: [id number] (Age): 1940(79y) Study Date: 03/13/2019 Room#: Type: Outpatient Sex: M Reading: Meir Aguillon MD, NATANAEL Reading: RICO TURK Referring: Mohsen Sarabia MD, NATANAEL Assembler Body: Tiffany Millan RDCS,RVT Procedure Info: [id number] Study Quality: Lower Arterial Doppler: adequate Diagnosis: I70.25 Atherosclerosis of um[place] arteries of other extremities with ulceration Lower [...] at 03/13/2019 12:54:02 by: Meir Aguillon MD, RPVIOhioHealthBMP FASTINGon 19-72-9569Cjcls gap molar conc8 mmol/LNormal8-16 [facility] HospitalCalcium mass conc9.6 mg/dLNormal8.4-10.2[facility] HospitalChloride molar hcou160 mmol/AJrxjwd48-141Ubbbt Lima HospitalComment on above:Result Comment: Please note: Triglyceride levels of 600mg/dL or higher may positively bias chlorideresults by approximately 2.1 mmolCO2 molar conc28 mmol/FGorqhu90-29DjtgoVia Christi HospitalCreatinine mass conc0.8 mg/dLNormal 0.7-1.2ASatanta District Hospital. GFR,>60NormalAAllen County HospitalEST. GFR,Non >60NormMercy Health Urbana HospitalGFR/1.73 sq M predicted among non-blacks MDRD vol rate/area (S/P/Bld)Average GFR for 70+ years old = 75.NormalVia Christi HospitalComment on above:Result Comment: Chronic Kidney disease, GFR = <60. Kidney failure, GFR = <15. The GFR estimate is not adjusted for extreme body surface area or acute process, nor has it been validated for women or ethnic groups other than and .Glucose mass conc95 mg/jAOgycuj01-417DcxrqVia Christi HospitalComment on above:Result Comment: NORMAL <100 mg/dL PREDIABETES 101-126 mg/dL DIABETES 126 mg/dL or higherPotassium molar conc4.2 mmol/LNormal3.5-5.1AAshland Health Centerodium molar gmqx665 mmol/ZRpzqqc562-864OvqaqVia Christi Hospital Urea nitrogen mass conc10 mg/dLNormal7-20Via Christi HospitalCBCon 10-31-2018 ABSOLUTE BAS0.0 E39OxadncMdmxbMercy Health Urbana HospitalABSOLUTE EOS0.10 E84EtaqwtCkgevMercy Health Urbana HospitalABSOLUTE NEUTROPHIL COUNT4.1 f98Atkqbs6.0-7.0Via Christi HospitalBasophils/100 WBC (Bld)0.5 %Normal0.0-2.0Via Christi HospitalDTYPEAUTO DIFFNormMercy Health Urbana HospitalEosinophils/100 WBC (Bld)1.1 %Normal0.0-11.0 Via Christi HospitalLymphocytes #/vol (Bld)1.10 X39WkflijCnxlyAllen County HospitalLymphocytes/100 WBC (Bld)18.3 %Low20.0-55.0[facility] Monocytes #/vol (Bld)0.5 I23JvlgnoZzfrdAllen County HospitalMonocytes/100 WBC (Bld) 9.2 %Normal0.0-10.0Via Christi HospitalNeutrophils/100 WBC (Bld)70.9 %Normal 37.0-75.0Via Christi HospitalErythrocyte distribution width Ratio (RBC)16.0 % High11.5-14.5AAllen County HospitalHematocrit Volume Fraction (Bld)33.3 %Low 42.0-52.0Via Christi HospitalHemoglobin mass conc (Bld)11.4 g/dLLow14.0-18.0 [facility] Entitic mass (RBC)30.8 ouYbjcpg71.0-35.0[facility] Medical CenterHC mass conc (RBC)34.2 g/eJCoivvh12.0-37.0[facility]ike Medical CenterV Entitic volume (RBC)90.0 nJSjbscq76.0-100.0Via Christi HospitalPlatelet mean volume Entitic volume (Bld)7.6 fLNormal7.4-11.0Via Christi HospitalPlatelets #/vol (Bld)271 /unvRwssvm925.0-400.0Via Christi HospitalRBC #/vol (Bld)3.69 /cmmLow4.0-6.1AAllen County HospitalWBC #/vol (Bld)5.8 /cmmNormal3.6-11.0Via Christi HospitalISTAT TROPONIN Ion 43-93-0314Jdiuhijn I.cardiac mass conc0.02 ng/mLNormal0-0.08Via Christi HospitalTroponin I.cardiac mass conc0.03 ng/mL Normal0-0.08[facility] Doppler ankle/brachial indexon 10-31-2018 Amended Report Non-Invasive Vascular Patient: SHERRY Bazan [facility] Rec#: [id number] (Age): 1940(78y) Study Date: 10/31/2018 Room#: Type: Outpatient Sex: M Reading: Ben Hahn MD, RPVI Reading: Campos Guerra M.D. Referring: Mohsen Sarabia MD, NATANAEL Assembler Body: Sussy Hardin RVT Info: [id number]... Study Quality: Lower Arterial Doppler: limited Study [...] 10/31/2018 12:01:15 by: Ben Hahn MD, NATANAEL [facility] In Heartlab [facility] - 10/31/2018 12:05 PM EST Amended Report Non-Invasive Vascular Patient: SHERRY Bazan [facility] Rec#: [id number] (Age): 1940(78y) Study Date: 10/31/2018 Room#: Type: Outpatient Sex: M Reading: Ben Hahn MD, NATANAEL Reading: Campos Guerra M.D. Referring: Mohsen Sarabia MD, NATANAEL Assembler Body: Sussy Hardin RVT Procedure Info: [id number]... Study Quality: Lower Arterial Doppler: limited Study [...] 10/31/2018 12:01:15 by: Ben Hahn MD, RPVI [facility] duplex arterial leg lefton 95-05-3793Nwz-Invasive Vascular Patient: SHERRY Bazan [facility] Rec#: [id number] (Age): 1940(78y) Study Date: 10/31/2018 Room#: Type: Outpatient Sex: M Reading: Campos Guerra M.D. Referring: ALENA Assembler Body: Sussy Hardin RVT Procedure Info: [id number] Study Quality: Graft Duplex: adequate Diagnosis: I73.9 [...] vein graft, with proximal anastomosis at the HOUSETRAILER SERVICER and distal anastomosis at the peroneal artery. Measurements Left PSV Name Value Units EIA 128 cm/sec HOUSETRAILER SERVICER 111 cm/sec LAUREL - prox 0 cm/sec LAUREL - mid 0 cm/sec LAUREL - dist 0 cm/sec STAFF APPRAISER - mid 0 cm/sec STAFF APPRAISER - dist 0 cm/sec Peroneal - mid [...] at 10/31/2018 12:07:19 by: Campos Guerra M.D. [facility] In Heartlab [facility] - 10/31/2018 12:09 PM EST Non-Invasive Vascular Patient: SHERRY Bazan [facility] Rec#: [id number] (Age): 1940(78y) Study Date: 10/31/2018 Room#: Type: Outpatient Sex: M Reading: Campos Guerra M.D. Referring: ALENA Assembler Body: Sussy Hardin RVT Procedure Info: [id number] Study Quality: Graft Duplex: adequate Diagnosis: I73.9 [...] vein graft, with proximal anastomosis at the HOUSETRAILER SERVICER and distal anastomosis at the peroneal artery. Measurements Left PSV Name Value Units EIA 128 cm/sec HOUSETRAILER SERVICER 111 cm/sec LAUREL - prox 0 cm/sec LAUREL - mid 0 cm/sec LAUREL - dist 0 cm/sec STAFF APPRAISER - mid 0 cm/sec STAFF APPRAISER - dist 0 cm/sec Peroneal - mid [...] signed at 10/31/2018 12:07:19 by: Campos Guerra M.D.[facility] HospitalXR CHEST PA 1 VIEWon 32-66-9614QY CHEST PA 1 VIEWXR CHEST PA 1 [...] granulomatous disease. 3. Bibasilar atelectasis and/or scarring.NormalAvita Weill Cornell Medical CenterCreatinine, Serumon 43-50-8864Wdvbsluntc mass conc0.79 mg/dLLow0.8 - 1.3 mg/dLOhioHealth GFR/1.73 sq M predicted among non-blacks MDRD vol rate/area (S/P/Bld)The eGFR should be used for monitoring renal function only and not for medication dosing. [facility] HospitalGFR/1.73 sq M.predicted CKD-EPI vol rate/area (S/P/Bld)85>=60 mL/min/1.73 q1SizlSqkljrThtxyqojighzgv and review of laboratory resultsAbnormal [facility] Memorial HospitalTISE EXAMon 75-83-5360Lagq ReportSurgical Pathology Report Case: [id number] Authorizing Provider: Ben Jensen, Collected: 10/10/2018 01:05 PM Ordering Location: [facility] Received: 10/11/2018 08:07 AM Endoscopy Pathologist: Carson Carroll MD Specimens: A) - Duodenum, Second Portion B) - Gastroesophageal Junction [facility] information m6gazGQwSMEdeUZsAbMmFOUsKGOvq4ygOFJlyQPzPmJyWwGeJdHuOcruiLWwPQDqYeCmd9wqn834oOFy e4oiUPJnTpL6hZNeDECr pZRyA980m4ppk3rwjzTyjMT9XOYvWSD0KNkyrwCygyP0TNjpfQIeSmZ6LEwxsjCmFHxftnFtjuBlHlc5 KHGcN319JJF8sUaqw3wk APN9ARXuKDWpVxFuSi5pbZVdM184MOLhPCQLFWIhtFs2UPPghsHvomEecMLYo306X512n8dgYIYdcdVh xZaRcuciy2nqR092WITm pTGrkhKrIcZfWEBgbQAgnRQ6AYXkWK9kqjuyChMjGJ6gksioNwFkES5ctne6BHB4DBfaCTMmKlE2CBVc aGKzNUGxxFtvOZexp035 VJS5OFftc0ytb3awmIHmIlj4YDMjOlEbYmusPMdkc4Szs6qsJUMhcq8jVLT5nKRivKyxz7Q0wDFvZTJi bIQcfeVnUSCjIaL3HDxh FN7agx45MOIdLSM9us7oyMMseBodzvArqMFhBVijL7TzDCRye660YIMxI7RzSHVia7X6xjChRrUnVPGz iUQ1emX5MFSnVUi9gABy fuN6hrRkqLYjC4tsiZ61RvLxgHPbT3AvqC31RuDuiPFxD8JegB0eVWPqFE8fnyqdl7vtPGK2FNfeNECz YFE0VqQtYELgx8Ucjwtk HIIid9NlQ1JjiDslY60unUmyF15fXDJsvXwzjQ0woCkceZ5cXmAwToFpXYlacVgfyGDvhoaxBWhrqnGc ZYyfbepiGOKoTCziI6fc XwOdERQrxBguTPoos0YzQHCxTLMbZcEhW8olYhkbKGNuZChvGUGtdBRzIBAjDQ9tS20qoEIhZletFJbl BjzbBCaqCFUtLvmsuKK0AtYFUJKav5VlhE9qSZBari9=LmryRgttmrUaauhaeqx report final diagnosis Narrative c0zhgJJtQJSnxYGpVgUbGHEyRJAww5yiADZgoMBsCeNeFuMdZrPyCbkqvVUmCHLrSdImh8qri552sAFy x1ryXFXaCdG6nYXrNGQl nYMwP092GRCrEUbju3vkf4BiCEFmnHHwq0V5CTYZihzzcJg8bRutZ60ie0C0WektC8sbZBStKWBiT3Hz ZB6dUYHkTbq1VYS1QMS9 LZLoGCWdC2IkBG9kUYDrvWNfFKc0g9ooqMcnNQDnTNL8y5hhXZwgcvUqOX9hpg5qpOv2h0kfyyTqGKWk BHXiiTZMRLRjH3QyxXug Ca3ueJq3sVwfCazbYLS8Gjj9LU9slc58yon3qOqdWDRcucgmFeD1ZRjoMPVtcpnaGJi8IWyiMYZpgDql MFxtYXJncjcyMFxtYXJn sXE9OCVaxUEdY8YfCNCkOXvyDZYmist3LpWhQp1twUQkxPWctb9nyi63AZM7u9HfoOgyTPP7RTR2PmUa Hm6fwRYaHRJhSR4xYaKe cZWbLSWxci87lKuoLYsuqyVxmI4oGuFrSAGpeJFwYVYmXEGaQ1rhTuPzmgNiA4zpT5CtQQJpWNIpZALk XfVlzdMyt7Erl3BpuSRf wCo1h5ljNZIlBUEktTidc7efSHU0TSSaI9T7eKRlc1fwQKksBGEzpQY9rrjaGJdqUHQfwsN3xllwXIfk OSTlgJI5olB7ILAjgOEw J8RulB3yAGRjZJtdIGPojpj8EdYqHl3axUIapPRiw6VgzGSvKVaoF05zb654FYFlfdOqM1wgpEYwafxf sKFbxofhNPayqlJ7PECm fsTvn8IlYKEiNYK6XRzdERirrLEaXHLpuElpx2ewH8QggWErDFOiRYkrBFCuWJQkWbLtpABySxDhDeDi aGljaFxmMVxkYmNoXGYx IPulF2jcUpDaC8KlNAGzYtFtfXKcA9bvJvCDXkVvyXnygD6fBlAuUrCbJgfpOC8eOOFqZ2pkpNTlMTGy XIJaZ0pjGyBchT6unFju NCtqZwOgQlExYhfzLEW7o4GyncHaCPXxPJIhlhUysN7zqBanhsyalCRcw9YikNVbjK3iy7tgePcqoH2g OvBgStEdVlozOF8zCDAu B2psrFIlPKBnVQSnG8qlQxKqyS8pyOziMWgiLvPmMdKrRwblkHTuoQyoLHlanDUcZQYpdzZhITUhSKzd bGFpblxmMVxmczIyXGxh hygpYNItRBohR8ctBgVuQPErpKkbGTdry9QyZHCoDZUdKsdzkuQzAFUyID2tjl7jhPAhuWQnIyVleDmg DYSxss1ypMUfWARuNSDu tVFqb6vzbGDxgrmaIUqelaFuJZrguzvhJIGtOUruS5ysZgDtLIEqsFwiJGnzj1LeTGMgLVVrUwdeeuVn NSs3yzGkPKCutOGzHPMr JXdjKHBuGKWfLnOsfCFjGuFgRqUsqNedyAqcFIazHxBhCWHgMKttC9teGaOlI6HdAHVmJfSoImsuGSCg jUmcxV6xCfXyBjOqRvcj DN3aQYTkF3izoHBsDNHcEYKjP8iyJgCkdE7soGfpWJcqWzXgUdJtOuwenUUbuNhpGREvlqZGIgPrqQyk iB0uViUtZcGaPtnfEL0i IRMsG7yogPBvHLReQDHbU9nlDvAswJ9vxRbzTApzMkWiMlSeZjngXVMjj8VyYWo4prrlC4HlsXApNTUd aKocN8UpaKBphD3vxLtg zjnpgCGik2HfvXUdbW9qu5himUxfzB0mFlLeZrXuDgrwCR4aZDHcQ4dqkCRpONDrJIRsF3fsCiLluO4q aFxmMVxjZjJcZnMyMlxs pFFryPuaOXvrgOudzD6dOrVsCeJkZeggXI8rHKKtC1hapJDyTRJrUFVoW2igRzAhbT2arJckOEwpZrNd ZnMyMlxiXHBhclxwYXIg ZLAwOLHlP9S5QJ1vI53xzP0oXOPypATif5QvTRetsKmneOFunV2hmXMakEEye5XsdNZwpPSfGBrhZEKw BLGzWSAjXfMsJMNvkwYcFx0tDYlygDUzzNruFDyiuKJ1SZNoLOVaMIuzWGW4YdpdKkokglJoagakoox report gross observation Narrative k6dhcGIpFUZitYJvRfPwQHGaGLAjj7rwNTMorKYcJoIiRuLuWdMbFsgtiJNhPSQnIdNlh8zrb751vNZq d5jrKPHrPuI2aIHkLMWq cJNxK432MORrTQcfeq8nFB6iPRLliJMce2O6GOCEsqxpyRs5z3crVpMpAmP0eJTaEMrkP8uhifJwmGLk WJDuJYq4yEjtMjAiUVYi z6Ohfm2jWOQgdZXqz8A4BTVZuvyukQe2nQclB51ah7O5QmspD5rsGSBgBZeaYGQqXRnijITmNBJ2NTVz FTP6IRzqtaHuneM2UCfp gRHbVgT4FXjsydZdNjWgKPboXUAcRgJ1VWGkjLLyDYVeF383VZH4aVbru0zxPLQ8IAJwTIPfPlUzJk3t fQLyI605JIOaDEBDCYYe pYc0GLHlapQndtIwfPLFl161D947u3apAMGibrEvlNtFoblbw1qbJ405JBAszATplgQqPtErKDVdjHLa eWI3IIZnTG4ekrwyZbJd CW7keydiAiSnWH7hzyw8SQG9LYvdHAEvZbX1GGFacONpXOMtnYjtSOzto763LZF8KTync4zak4caiUBj Xxj8KAUvNwXiXctxMHxo j6Job9svVWHcrv0hQCI6tMMktZbwg4R8fLTxBOJzvDXduaIoSSLoFyO9ZFrcFZ3pWY7nJVXwhH8jbmls XHBnYnJkcmhlYWRccGdi lhOgJb9ovCxfHJJ5BVpeZ7mptA6gMzC8MJvcO3zojB7pNZd0DSqreHN7VDOtlA1dSW3krgbec8knIoGr CD0pmxtmm1dsIyBmAK8q ofn0g8mqPIG2GEtdXVZzXoD4gxN0UGEwwSKnCAWziOntSNazt232VKK0ADqbWituTTrsRUCihkDnuoRm cGduZGVjXHBsYWluXHBs ZMzfGEUhGRDhIhHuuMYmGXbqb5MqepBuzEqmZKHyHFh1fbZroegloZt2kLJwnPrpNLVrnWtooC6eOmFn ZnMyMFxwbGFpblxmMVxm ajAxPKrqbmsbPGEaTFiaV2ipFjFsUYLfoIllJIhjl6ZaGHKrSBDoXPkbahVgJPk7unLoARVwXSJrzONz IEEuICBSZWNlaXZlZCBp bwJil3EbVDhpozYpHWUtyECeGCMiuFottE9qPsMzLgFzWJybNS9rGVFcW1zwhFPhKWQyHTSsS5hsGlQj cZ9luYerZphuCgAtKcZe GQcrnj73CIT6q7waqEXqIWobXxmhgAGsyfL2QSkQIVGRAAhBCoVxYX1rSBsUZrsGJFhRXqiaIQHzFWbg gEOGLTsCG8z2ERPERX5o WEreUvo9YQ21HCQmSSWkiTAkSXngW915ZXDxQRzaCLSfBHPoTmUsaKAsGsLySwDaoXigvAybDbmsKzBf FGPkNVixR6vrXzDzQ4Zq AXAzImYuoHJunQQpsQHIb6noIDJMzP7gvkTTGFEkEHgcLMQeRWRyFiVuiVCzPfOyLzRjmTxsqObgEkeb FvZaLRAhDWllA6mdUvLw J0KxHPGyAaYzmSDrzZDvpJjxXjytdXD5ZRseFukytA2emVGBWPVJKwuSUmsrliQrPA6HRH1XIV2EiIZ4 POIvkDB2JPKOHN1FiToG NTLxYvDtIUosvPvtsOrhVdxyzxRofOIwWrAwcV5jyYaaxJ8qKqQeMgBlKSejFB7qTDIpX3bsvQJoTJIy MLVcB9uwQqUyzU9ilGns FKkiQhFzOiSuIAizaQUooHItQNSvMWRaLIYuK44jmGDyKLZbwTiwzT5mIpSqBzLfMBYNAoCUnD7gGC99 nJZfVHRolfWkrP1qrFcy gollcQMhzrxpNVjbklYgSKyvfkjoWNDdMXitS0hfJjTwMIXmmHziAKqqe0StIQHfHVEqTNlcgqCpWNl5 cmNoICIgXHBsYWluXGYy VRBvKmKkKHLlIOK6ahU0TB8dsB9jaCtdwdkci43up0YdDKHrjYR7PGQwEItrOBBnFMLeFiTgzBQsPrMm MzNcaGljaFxmMVxkYmNo UWDiTCtpR1rwQqMtN4XqLOIxTeTswHYjE8cbPYIlYYFaBMRwRDQouDfgbY2aPdDcZaLbENFrMuSwrIRb BsCawHSjFiHmpCskdC3b HiYlGcEkBDuyHA2jNHYzU4xykFUuHVCjFUVpP9zcNaWuuN3ggRnaEAinThKfQgPnBLwtnOKnlYLjZ17j fZjasY4yIxMmQeMvNWLv NWVovToaeWRqczfiJCqqafBoUJuixuafRWZqJXamF5cuZrRkVXLgrGomDEzwn9EqMJLzFHHoRAwousFu VYf0hjTaTG4iBAYjeYVm rQpjgE8rSuRbPyFtNBYvZOCtVAwfXDJzYFIyUmXyuGWyAaJnJpTdjSeffQhxSGwhYvIeMXCzCDezB2lx YhOfU4ClRZUcDeJshAQl F8shVxMlWDNwWYilDCZdCYFwCrKitYGiQkTjKqKqmQnvxLinU6liOtSlQWEeGNukR2shEuTiD3EjYFQk EwQbh3IwzVGnXAH4BxGn JUXgIOnoiQQszhdnWQblruQbDJlazyqrJZRpBVquO5tvZrCmVYMdvOpaNWthn7KgHXOvGIOpLWuwzkXr ANh1amYyWZUrgbfnlJLb zmzsToussjGkLEZghfjibVHgizmcTPpelaRcMAjfvtjsRWAjJWuwS1iaAkSxGTZjcAirWEgxm1ZpQFJd WAYgBEovufKoGPh3vlDz OZAvQNVllOGdSRTcOHOAHSNyoQYsEQQrgtZns4DqKQjexxDpJVAjxTLoBSTrjUuebE4oHaXmIvItHCfc ED8sAHQbO9edgWQiCMZx BERfY0wrBpPopI5vtMifYddxBoImSwKwFCxqgz37DGF4s1nrmRLyQIcsPwhgcNOoqnA3SHvKTEFOMNaX VwWoQM1nYNcFWltWYJaF WdvbCHSxUZdloVTRSCtVV3g0DMMCXJ1fNGurEwg1IW96JEEiXUHrwKDoYXdbW209RWKeQAlgPWTbKRQm MjBcbGFuZzEwMzNcaGlj nXydGdnvDfVrZSVwZGcgV8bxLuHoU4RpXXIpRrTovOXpiTUkzCZGq7qoOHHMcJ4vsmUDXXUmEFmlETRo XGZzMjBcbGFuZzEwMzNc cGzdnFvpBosfJdXgVLClORdzY1ayRsZtH1WxPWAzLaUacGNwdLBbgWniKerjvMO8MWvyLkzjwL0hhEYB HWDOIqlARdvbagPxEZ1Y RR5VAZ1WxQS6JGNeaHW3ISHLWV3ItSmIYVZgAbFxFXwabIyizCvaVkghtdZqpSQrLsXagH6idNxpyX2q TqMnRrBpGWeoYD0aQZBm G1vbsGXyGMIiRNRbO1uqAdFobM5yjCwxOXltFxFoFcOpZSjdfDUupSTiOHSaVTZuHQRfV12vaSJxUXPz nDksuP9eHnAqMjRdNBFZ JrUNVCB9go0me33mxPAoKVIhUFe0niS6uB4rGKQrBAiyFNCtHZSwMfXrgJHxNbHoJhTzjJbctVrxVIfn IpRqZPXdIRwkP2ivKwFr U0TjPIXeOgKivJMbX2wkFuWjuNtpdF2iBbViLxSjOESmvjMabmSsxKsupvrojMYcRVOxoC6snEztIKKo LXYhlUiwxX0lShVjIkCc RRkpYU5uYSXwH2xgdHOwXCKhDAPoK0anYkVocP6hgPouEAbjBbYwVaOzHMtluOKzjPMhuUwnB1Nflfrt IFxwbGFpblxmMlxmczIw BMUkETY5CDXnLyK3QFSiKWdgbSOvgqbuAGgdpcGpLCijpdqkCABaDEseP7nyTzFqJMEjqWtxCXqmm0Hq XGYxXGNmMVxmczIwXGx0 avZmLOTfhQ2iWXZhhTPezNmmeM4jDbLzGtBnYMAyFDKiWIkeUZHvTLOjRtXlsNGtUrWhFaMkgYnvjJjf ZSarOfUtKDToKRxsS0xd ZdZrS5WsIYDqSrIdcHXvU0tuHdSzMCSmIKhoZPOaKABmJdWbtMSkCrDvYwOuwNhuzRygE7rpDzUsGAIc WQlbL6lhXfVqL1KzZXAi BzPkw5GfgBFtGGE7LzSuXZFeNHrkQXCytCQdVSVbprBqr4PvAZXoTCK2XIhnGCxxfPbjnKOnthizCKgg czIwXHBsYWluXGYzXGZz MtClhVFgWnEcNrKxuGgafGygT4kvNuCsIFRbSUqdR3cuTpZnQ5VlONRkYvXiy5TofEIvSJR1EaMqRFCc HzDFT6LAF1ybXULgqKLv SDVzXKnsZCCzVAQlNeIawKMpLTzog0NvKJU8AB3ekzU5yV5oODEdurHhde4jWZWivImvOid4DSXzfXFs LI9vgUcnTVrhmMFMj6Xx aQZbpJEjEFR8FqUsM9bxuvWicln0USCmdmBnCEQyMQXbR86eqL3tyRLkND1IFDBjCwA7BDAqgv0= [facility] report microscopic observation Narrative Other stain b7doqRXtPYZtzZOnCiFdGBZhBJOsd1ygDFXbwLDtPeFxVwXeGlSmQcnygUBaOVEbYoCfh0cko614uVDg b5vdNOImPfI0hMDgZUFl zXUnI911BDPtFDvad0kdg0YcVGAvvMTim9C2YVCAtmjwoPz2fNlnK93co8R2XnrhZ5tuHQAxKDXjM3Ll CZ1bRUYiTdu0IGC6BHE7 AIIqZOPjC3SbZP9cXFXymXOzKWy8i8gwrEpzEBPaQPB6s8dvQFngzdBkQI4tpc3muPj2m3hnnzRzMRJv KQGwmZWNHDEhB2WfqYtg Qd5hsTv4yFjkWnznNMZ3Mow4SO1guz09def7aNdtJBZbakdhKzO8TBpmMIFykkvgLYw3JSubYGKdpGI2 SOMjySAiU9RgBAVcDN8p muj5VUX5YEtiARZpPaY8GFEdmNBtOFOlnVxiXExax793KBH1GnMhYO3fQ4Dnu1V6zF3svEPhZMXfnOAb QxFxMMTdho8qlCXwMPbg m4DwBYE8zdP3zESpyPVmTNAqKY16Qmahd5OiWdacJPG2JGIwqcYjd7Vez2bwGtXdliViI9qvJ0CfUXCs PSWvEMDpHtWqqeMoq0Uf t4BpjGGbbXt1x5tfSMVdABYrbEibe7ocOCO2NXGfF9X7nYGwz8hsTCwoXNZmrMC4cyE8YMUpkEKrX8Jn nA5pWPPxGO8vakb4q8jf WGU2WPxpQSEbFeC1ieF2EOQftOAmNOOxtIlsDStuk788IYR2BzVoMDWah1UzZ8IvfXejR38jbHroS88b LIRcpAxiwY8tyQhfqF8s NqRcDtLiMMwffFbqyLOrchsgSZwwfbQpTBbbdrfcNLXvYUmkQ8jkZcCmGRTmrPzrPFbwo1GeBRWfPHXc HnDwSPgbss0nZ41qtWBnWCidbEtkMEKzl57mpSOwmICgMe9pdVUgGwizWOD1UrhcAqvgupPynsvzlyqz Level, Randomon 47-34-3235Nuuututjjm mass conc18.4mcg/mLOhioHealthNo established reference range.[facility] 68-12-0422Fcwbpievjkl distribution width Entitic volume (RBC)14.6 %11.6 - 14.8 %OhioWooster Community HospitalHematocrit Volume Fraction (Bld)26.6 %Low41 - 53 %[facility] HospitalHemoglobin mass conc (Bld)8.7 g/dLLow 13.5 - 17.5 g/dLOhioHealthInterpretation and review of laboratory results AbnormalOhioHealthMCH Entitic mass (RBC)31.2 pg26 - 34 pgOhioHealthMCHC mass conc (RBC)32.7 g/dL31 - 37 g/dLOhioHealthComment on above:Cold Agglutinin presentMCV Entitic volume (RBC)95.3 fL80 - 100 fLOhioHealthNucleated RBC #/vol (Bld)0.00 10*3/uLOhioHealthNucleated RBC/100 WBC Ratio (Bld)0.0 %[facility] Platelet mean volume Entitic volume (Bld)9.9 fL9 - 15.5 fLOhioHealthPlatelets #/vol (Bld)160 10*3/uLOhioHealthRBC #/vol (Bld)2.79 10*6/uLLowOhioHealthWBC #/vol (Bld)4.58 10*3/uLOhioHealthCreatinine, Serumon 82-11-6627Rsdbtchpph mass conc0.95 mg/dL0.8 - 1.3 mg/dLOhioHealthGFR/1.73 sq M predicted among non-blacks MDRD vol rate/area (S/P/Bld)The eGFR should be used for monitoring renal function only and not for medication dosing.[facility] HospitalGFR/1.73 sq M.predicted CKD-EPI vol rate/area (S/P/Bld)76>=60 mL/min/1.73 b8IbxaRyrgsqEqtwxxpgimyfne and review of laboratory resultsNormalOUniversity Hospitals Health SystemealthTISSUE EXAMon [id number] Report Surgical Pathology Report Case: [id number] Authorizing Provider: Flynn Mann DPM Collected: 10/08/2018 07:43 AM Ordering Location: [facility] Received: 10/08/2018 01:42 PM Center Periop Pathologist: Shyanne Yoder MD Specimen: Amputation, Foot, Left, Left foot to pathology [facility] HospitalClinical information s6pslMZaVJZlmQDjOuDiAVTiFAOsh7imTQTgoFMcBwWbGnQzErBsNrnvhOGcXEEuMvVkd6tfz528zNRn y5wmGAUtDmQ3aOFdFXZg ePGbR264s8uxr9utfpPivVC3DUHfUTH4RBfbfbBpqzV8BVvjcPKcAcL6ORdhfpFrMEztuiLwymIiUxc6 MPBxM296HYS0vIxds8ti LZM4YNEqDIQmKuEqRe7xcQNpG835QAUwBXBQSBOimNb0TNKosdDdzlZsfIROt754N603x3jyQBYlilKd gGrAyaifo7biE941PFXj qQBmpyYcLoUvNDNegFIbuBW2FDAdYF3wmuktLxGqIP7kuguaYbLvMS5rbyy2VJO4OEraXDRrLnH7EJLw jHGjZXLnzRidBVjka307 DRA6IJkve7odm8vfuTDdQrt7SNIeUdLjVzlcRCbxx2Kci2qhOTRzgu6gUUK7fVEldRhil9H9tSKjXSQt uJKrduEuGXLhMnR6EXpz PH9law02VEAqJQO9pj8xhUZssDcitsBtzESuLJdsX1NyPDWwb599AQBvI9OmMTXmq4X2fzKpJzUaPXRq eEE6nvN1BYCmJBp2nAFn yyH1bkUueZVfL5gexS61RrPbwQBqK3ZmyG56OlRaqAEiJ8GfmO3oEYWzBB2wxbgyb7ufTHF9VRzfVOLe IQI0DtAvLYThn2Gkizgf GBPqx2NpN4DseNtwE88mwDeeS75mCZMwyUugdN6ppVhebR7wIsReUkRvPUymzGrlpFSareliFLpdyyJg TQvjazxeUCKwXPgzS3wy FsTqKKRlkVzoOWlrd7TzCRUkLGMkKeBgUWSmuPSvj628ELayzcjxTL1hFiagTTT8VaveMnckln Pathology report final diagnosis Narrative s3ptaOIoJSZsdPXaKiDkRAFiKHGyl1eyBPFvkYPxHsUfEnCwKiUvGhrojCQdIZJvOvTio6vis911cVSr f0tsFWIkBfJ9jIDiVLUj mTZwM329BNXbTZnlb4ope1AtMYOqeYMte8I1WDBFkwlfjMy8yHpkY72tx5A0ItanA9uoITPjAXkeDMPo JUcxgCMgSKM7PHWlYSV1 PVpqmeEjdbP4WKbusAMoDsG7WRn6n6tszNogXIWlTHB8g9zkDCqsimCkGX2pfv0dgAh7g5ksieHdSUHt EOHeuJZZJEBbT9ZlxAws Ks7rhEk8uSnfNymeLBU0Gcf4ON4qfo89bjr5lGoxYYAreuqsNpT0ECkpBRPkxwflTAr7QBjvESAxuWbk MFxtYXJncjcyMFxtYXJn nYV0EPUyyWLaX6NkKRZwJCknOZSlvup1YrHnVi0mlGNgpETxtl8rfo50FWX4b8QljTteUKL7CYJ9AfHy Yj1dnOQxIRIvIU0pHfUu zOBeNYSwws35qKymISwyqnKdfA9iItMnKZSqqZEyOIIdIRGnX8uePtGzbbYiZ2rvM0UgPYXhHMXuIMNh XoOgtxEgu6Wux7ZhyJKd fVx3v4fsXWTxBLBgrNsgc0qgOZD7LPGoZ2C3lXDrd9bjZUgiZMYrcOY2kivyYOtvWNHzerI5ypqpEIjt MCNvdHD6rrL8UPSzqXOu M4YyrN9pGHMfGGfmWEJoiwt2RdDpHk5dcEGjfJZeg2DffWAaSErlQ64ew315HEXbwsFqC5pdxRVngimb bGFpblxmMFxmczIwXHBh pqChw4VrMLWcCLY9QNcwFFnvdDDxZVGloReln1skJ5SixFTiFPBcVSpaZJFgMGBoGgEvfNryqU0iPuRz IeXwLUgqTN5eZYRpH2uk tOXoBRItZPVaJ1veArCjqT4nxGrsYTotAkPtHjHdCMlzQEFmrreqaMZyxggxXXomjjSeAEmiyfzvQNZr TAsfQ5boWmTtLWUskSev EXugn6MiLICcGLIvQFxlqyUzSBLfGJTziBXiu963PRObaGM6kMR7xO9cJUTrJOtjAOTeLKHsVrMzaMPc ZzEwMzNcaGljaFxmMVxk OuGyEGBvIRijR5smVxQeX0BkPGEnKgJmsDZsM5rkYxJ7IVVnSUduJASuNLXkKaBxtEDeKsLlYpVvfSfu aFxmMVxkYmNoXGYxXGxv D0ecAmAnN7PmONJwYzZsXpcuQXFtwGKeSGXqijEol1ZtLKMaDCK3ZFfpKBnxuHcycGCokkxoHJnctfBf XHBsYWluXGYxXGZzMjJc cQBfBxUdCmGfbPvqaUueVRnhMkAnMGKuOKufV0lsTuDuP9SoWXJpEuXnUvSrUSZpLIYDiROzvxFhkjNw m11bkJS6uMYcqSBkJM2xOQHdslSiiyCkiw6zxDLdHUQyogcswFCioodfGQxiheNsYXAbvulmAOB6 [facility] HospitalPathology report gross observation Narrative z7extBDpPXJsaTYrInEdIPXwKQSaw6ytFPEixIHjIpRtSxYvWaVqJntpeFKeXTEdZwUuy6qbd081vHUt h7chEXGxIfF6dBBnSZBu vTCxG810CRNlDUsxjz8bMS6qNNPlrWQto7Y4NOKTzupzoTt6g4mrGwGwVnK2uCDaRFpxW5guqwBqjXTm DRXtNNt1dL54JTIjwK2l jNNfFGorcnVhRQdmvjWxmiFkLsc9UIUaY5lsXMSpABUsZ7MiSJ9iSBUmVbn6BTS6IDT6BYUdRKSeEVgi cmVlbjIxMFxibHVlMjU1 IVx1h7uylHlcEFIaRDY9f5afNHbwtoOxCN5qdq9yaXd0t4maryMwGIXcNPSvbUFAIYClJ1OclVabEe9e gPt0uGqwRdxiFSZ4Zba3 GJ9acm37acn9uSsxUAJnglowSyO1DWfwQVKvvaiqBGl3JZxiPXXnxZolAYccNNJvbnzvVYoxENNmhFO4 RPFqmXDdH4RvHWJkQEbo KGXhtkv9SdBfPp2pmLGkcWJycb9daf48VVF2g7ErwOgbQKS7HPX5SuEsUp1enMAbCZCkHU3bCjYjuDSh QNUpxf67cAzkVNlpzoKj aV4zXePiKNUboKSuOTHpTVVuR6jkDxYgmqXvR3ouU5EeBBWcFEFxELEtBeEbxbGom0Dcy7JrnYBjhVj1 x6ubWYMvFNFijImut7nn RBH2GZEmZ7G6vUUah1vyEPjzVWSbcGQ4wgnxMOjcXZBnkqJ9uzafGBwyOBNodHX9pzL2ZNKakOPoJ2Za zD8rAHEmMIoqLNGfmuu1 ZcBmZv6ewHMtiZIza3CglYIaFXtkC58hv135PCFzqlAtT0zsvCQkkcwanLRbvticRShnnjLcCXKkAMRu YWluXGYwXGZzMjBccGxh yA3hEiYwPjEqIVeaVR4dJYGqO5tayEXiDOKnOFBpW6ckLdUjwP6abJczTIoqUlZtWeBzCZayeQBcfLFB EPOxwJBvWVGoibUlu6Ki XJmtupCqYSXevGZzWLStsPoepQ5tAhSlFeUtHBaxIF2uETRvD2urdAJzQLGeCRFoH8lgMmEgnX1xxMtc RGubQxPrLlPvWCdxpz09 EGF1n6klsIMnEJvsJgfseFPwxjY7EFuIYIPLFPyOFrAtGQ9zVOwBEsaIZJmGShygWGFmYWgouTUFYEvI F2h3TGFYJM0pOZoxSyd8 NI18FPPpKHAglHMuIJbuI469NQQvPUqxHEReZFWnYqLcoSElSeEkGoGkqNgehMxkXAbpSzWuZVNnBVek T9bmMeLwJ4EhNLXeMhMz xIKycTKvtGLIg0dcOZLWvQ0nllTUYQJwZYbnCCOsMMFlVwCxgQHlFyVgQeZfqFxtpBnvNTopXfEqMFJi PVbpK9hnXqRdG7IeGYYx DfTaaRUqtLIknKdeClvfsKN4HQlhSsfolX9yzGGASGYDDpbLHfprpzIcOL4BKN1KBA6DxIV0GNVhoXB6 JDUZHH8SyXeICDBbIiOt JHjluNpmuNbqCnoreaQxqNYbYdIraR6ypVlvmD4cCxKmUwStVNfxDN6wKRTvJ4heuEYeSRWoTBUxB9ow AwCcwV1npSfkCQxcSaNb QeIyAWvguQWsnHIxEBXhEORkWXIcD15qvRLcPVNtsQrqnD0fUaRzMnCtVMUrQBI6YRGtd1KcTK5poGRg dGlvblxwbGFpblxmMVxm alMrTBdzyqldGTPoFUomW9zzWnViBAKclGuiLZoae3QjIZCdPYPpHAwfyfEaTQi9hrBpZMWezBuacX2x ZjJcZnMyMCAgaXMgYSBk lRIyjqRsK2QhDEBlKFOcKQZ6XWPilqEhw377XJKtUEU7DIciSWP7NPOoM29gBVKNtIUoe7vljsEdbwR9 SM9um7iguXOrRHdhlW8t aQQpRvJxMEpjHHPbmJ6ei55soNlaHGFvYXCvHR7hJACsPGJimSU5SBdfeUDjDwUiZbU0kGLsVX2av3Yd RQA6fzBcR0Lpf9NcjOge BSIuf5VfiYAhR1Has2GbkUJbkU3inXOzDKKuPTWrzLOfAN2kCOTuwkLqUf0iALnduQCrNVAck5LcYm4q IEZpdmUgZGlnaXRzIGFy YQDnndTcPU78UUXyNDHwCFlheZcyZWA9GJ6ylD7llNZpsZ95SRB3qUilp3SeFRXjiT6xqyQwoU6qOIHv cGFyYXRlbHkgcmVjZWl2 QLQpICMkSIMvBCEuhELjvSscw6Mgp67iZDRqSZT4hNhtFAZfsA3xoVIkvu1cPf3fIDYlER3aCPBcqVUj hiYxL2FjLEMtiUIroKLx Kn8tFK5tQPZdMUSqxoKnK6RqDABlo1CsAeXoNLMjVKFoLKrbGRwnr9epoHDvFVIrx777rD0kBRnwUIYr qILbURRdf7XkqRXgDWW0 jL6ylgq3LCHKJW8wKVOaBIHcusTnsSo1WRIyg2loKXNbd2PanLzjsmXoMPVgnI6bFVXqWLYjMrMNUc1e MKYuZAZwpwCuwGe8XQPr XYKim2KlVgMzgtVtXkmzK8ppPXEjzQViHE2aGPTpw9xeVmVFIa0re31mOTLgLBHpoF0bYqhyK1zxpSyp N7yddyWcVQNkqX7jHGIr P5QaD7sbbZIjWtPBMG5uKYVlIDBbdgBjzWv2QURrlZQifRBvRn6eGRlxLPUtJRnfxOWlFBB3ICI8RPUh jBOap2MaqXN1iFVaJIYs tDPsAYV7ncHgUt3ytSBur17sGULyZFOnwOOoNowmJU9sHX0hWD2hGPKtwhguJPQyQ6IIO0ZXXx2pnVez QHVhcymkHFKmM3Rae2Gu WRnutIdpXPUww41khPUjHn7ciVIpBRJ4OsDWsDJsdkOeACLbZGC7nL0ykLV0XXqnk0DfwHCvZK1hGbCh PWTAwDVudIMeZ6urWyg5GOPnWl6gJQUSg6s8kYM5watgW5ljFSXmWWZlBARfqo3=UareIwdrly Pathology report microscopic observation Narrative Other stain k0fdjZFuUGMahTSjMmNyEONuFWRdw6bqNKRudCAkGxPhUpIxNvKyBmjuyDIpQSXxYePcl3gah476qJVt i8rzRPZhYaI7fDKjIVNl xXIiT455WCPmCOzrk9yma4DlFMSxcHGoa1E2FCXRwvcdfXc8gIrtO98dr9G6HicbA5wpTIFhTAClC1Wc NQ0pBDClUhd4YRR8AZC1 DKQoDTRvJ2BsSV6hKICsuRTxKUi7u4lcbGrtLGBcNEQ2o6lgGDgglwVcPV9jxi9igSh7i4kukjAeJTAu YZOwcOLGEPNpZ5OyjHsd Kz1fkPc6mQtrBsjdYJW4Loe8OX8upy27weq5nXomBNDbipfvDhN7JPbdXHEghzkiKQd4TWwoMMLqhJC9 YJBzyZHvV3ZcXAJwNP3s hdt9NBI7SJcoWGYbYqH2SJHuhQYgEOHrmVonCUkwn841FHY1WtJiBB7bI6Lwp4F2tV4deGMqIWFrnIIo LtUfGZAnhj6gvQNtPRob t8YpDQY2faQ3iFSsvETsVWUrBP69Inlgo7SrEqunLCD7XCQiubUdi6Tpb6fgVyQirfUbU6ldQ8XbTYVp ZSOoDEOiHqNrgjPqh5Ha g4IlaIFmnMj4s6riYTDrNDCrzIjhl5bbMGO9LDNwD3B3zVUqu8izQBwfSSRxeKH5ipE7NOYwoLOsF1Nb oX4lEJUySD5umqm8a7dl PHU0PAssQADmPvZ3guU1TTIsdAUdXNInyEdbDYuom380UTK5FrQdAKHaz8BdW9JbnZdxG42swDdgY25t ZFRcuGoabV2ynPrheY7o ZqIoHcKaIXcjqHypfXFvszhtZHskutXkXIbdusoiIOXpXFxfX5gbTpZpGZAkdJciNZpjh5DxRLQpNKBe WrQwCJyley6yI20wtXFlHSqdwQeaUFImc08qyJVctFLqSa0viAFjXcafVXB9ZetySeumrzVuvcqkuewa Level, Randomon 30-98-2207Pjegfyutxp mass conc14.3mcg/mLOhioHealthNo established reference range.OhioHealthXR Foot Left 2 Viewson 10-11-2018 EXAMINATION: 2 [...] of the lateral malleolus. 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 Surgical drain present. [employer] Workstation ID: [id number], Anton In [facility] - 10/11/2018 8:39 AM EST EXAMINATION: 2 [...] the midfoot Chopart articulations. Surgical drain present. [employer] Workstation ID: [id number], Serumon 62-32-8981Nvzvqfgcxm mass conc1.06 mg/dL0.8 - 1.3 mg/dLOhioHealthGFR/1.73 sq M predicted among non- blacks MDRD vol rate/area (S/P/Bld)The eGFR should be used for monitoring renal function only and not for medication dosing.OhioHealthGFR/1.73 sq M.predicted CKD-EPI vol rate/area (S/P/Bld)66>=60 mL/min/1.73 f1IkxwTajnxpMunudgvguwnnxn and review of laboratory resultsNormalOhioHealthECG 12-LEADon 86-50-8636Hggufl Rate 72BPMOhioHealthP Rcms-672pbhngcqZcjeDmoywaH-V Ulyyeeho472 msOhioHealthQ-T Cdmbamqm598 msOhioHealthQRS Dindudfb35 msOhioHealthQTC Calculation (Bezet)457 ms OhioHealthR Frih964ljldjgkDeqoGsjfoqV Fdma213zljdautBmziHpcfigZexsremiieb Rate72 BPMOhioHealth Suspect arm lead reversal, interpretation assumes no reversal Unusual P axis, possible ectopic atrial rhythm Lateral infarct , age undetermined Abnormal ECG When compared with ECG of 05-SEP-2018 13:28, Ectopic atrial rhythm has replaced Sinus rhythm QRS axis Shifted right Confirmed by Maxim Ward M.D. ([id number]) on 10/10/2018 1:34:17 PMOhioHealthHemoglobin and Hematocriton 87-37-6185Vethvalijg Volume Fraction (Bld)25.1 %Low41 - 53 % OhioHealthComment on above:PRE-WAMED FOR COLD AGGLUTININHemoglobin mass conc (Bld)8.2 g/dLLow13.5 - 17.5 g/dLOhioHealthInterpretation and review of laboratory resultsAbnormalOhioHealthHematocrit Volume Fraction (Bld)24.0 %Low41 - 53 %OhioHealthHemoglobin mass conc (Bld)8.3 g/dLLow13.5 - 17.5 g/dLOhioHealth Interpretation and review of laboratory resultsAbnormalOhioHealthVancomycin Level, Troughon 65-66-5767Lomkgzqqcdcovq and review of laboratory results AbnormalOhioHealthVancomycin trough mass conc27.4 ug/mLCritically highOhioHealth XR Chest 1 Viewon 79-60-9504Lpyppubni, Rad In [facility] - 10/10/2018 8:25 AM EST EXAMINATION: SINGLE [...] suggestive of underlying COPD. TRP/jw Workstation ID: [id number]. Increased bibasilar pulmonary opacities may represent atelectasis, pneumonia, and/or aspiration.Recommend radiographic follow-up to complete resolution. 2. Findings suggestive of underlying COPD. TRP/jw Workstation ID: [id number]: SINGLE XRAY VIEW OF THE CHEST 10/09/2018 [...] of pneumothorax. No evidence of acute osseous abnormalities.[facility] Metabolic Panelon 18-42-6067Erejd gap molar conc16 mmol/L10 - 20 mmol/LOhioHealthCalcium mass conc 8.6 mg/dL8.4 - 10.2 mg/dLOhioHealthChloride molar itvv198 mmol/L98 - 108 mmol/L [facility] HospitalCreatinine mass conc0.90 mg/dL0.8 - 1.3 mg/dLOhioHealthGFR/1.73 sq M predicted among non-blacks MDRD vol rate/area (S/P/Bld)The eGFR should be used for monitoring renal function only and not for medication dosing.[facility] GFR/1.73 sq M.predicted CKD-EPI vol rate/area (S/P/Bld)81>=60 mL/min/1.73 m2 OhioWooster Community HospitalGlucose mass vofv981 mg/hMXzip30 - 99 mg/dLOhioHealthHCO3 molar conc23 mmol/L21 - 32 mmol/LOhioHealthInterpretation and review of laboratory results AbnormalOhioHealthPotassium molar conc4.2 mmol/L3.5 - 5.1 mmol/LOhioHealthSodium molar xsms482 mmol/L135 - 145 mmol/LOhioHealthUrea nitrogen mass conc9 mg/dL8 - 25 mg/dLOhioHealthUrea nitrogen/Creatinine mass ratio10.0 mg/mgOhioHealthCBCon 22-89-7295Nzhajvxwcjg distribution width Entitic volume (RBC)15.3 %High11.6 - 14.8 %[facility] HospitalHematocrit Volume Fraction (Bld)27.7 %Low41 - 53 %[facility] Hemoglobin mass conc (Bld)8.9 g/dLLow13.5 - 17.5 g/dLOhioHealthInterpretation and review of laboratory resultsAbnormalOhioHealthMCH Entitic mass (RBC)31.2 pg 26 - 34 pgOhioHealthMCHC mass conc (RBC)32.1 g/dL31 - 37 g/dLOhioHealthComment on above:Cold Agglutinin presentMCV Entitic volume (RBC)97.2 fL80 - 100 fL [facility] HospitalNucleated RBC #/vol (Bld)0.00 10*3/uLOhioHealthNucleated RBC/100 WBC Ratio (Bld)0.0 %[facility] HospitalPlatelet mean volume Entitic volume (Bld)9.7 fL9 - 15.5 fLOhioHealthPlatelets #/vol (Bld)187 10*3/uLOhioHealthRBC #/vol (Bld)2.85 10*6/uLLowOhioHealthWBC #/vol (Bld)5.18 10*3/uLOhioHealthCreatinine, Serumon 44-09-5461Riassyxslg mass conc0.95 mg/dL0.8 - 1.3 mg/dLOhioHealthGFR/1.73 sq M predicted among non-blacks MDRD vol rate/area (S/P/Bld)The eGFR should be used for monitoring renal function only and not for medication dosing.[facility] GFR/1.73 sq M.predicted CKD-EPI vol rate/area (S/P/Bld)76>=60 mL/min/1.73 m2 OhioWooster Community HospitalInterpretation and review of laboratory resultsNormalOhiILealth Gastrocult Gastricon 79-48-9472Uojvygcwzb.gastrointestinal Ql (Ciera fld)Positive AbnormalNegative for Occult BloodOhioHealthInterpretation and review of laboratory resultsAbnormalOhioHealthHemoglobin and Hematocriton 10-09-2018 Hematocrit Volume Fraction (Bld)23.2 %Low41 - 53 %OhioHealthHemoglobin mass conc (Bld)8.6 g/dLLow13.5 - 17.5 g/dLOhioHealthInterpretation and review of laboratory resultsAbnormalOhioHealthXR CHEST PA/APon 77-66-6560HH CHEST PA/AP EXAMINATION: SINGLE XRAY VIEW OF [...] resolution. 2. Findings suggestive of underlying COPD. [facility]/ Workstation ID: [id number] Dictated by: MOJGAN PINO on MonOct 09, 2018 2:31:15 PM EST Transcribed by: MICHAEL ROBLES on MonOct 09, 2018 2:40:23 PM EST Finalized by: MOJGAN PINO on MonOct 10, 2018 8:22:38 AM [facility] CarrolltonComment on above:Order Comment: Reason for exam?:Dyspnea Injury/Trauma or Illness?:Illness/Other How long have you had these symptoms (acute/chronic)?:Acute History of cancer?:unk Surgeries, chemotherapy, or radiation?:YES Type of Exam?:Initial Additional signs and symptoms?:naBasic Metabolic Panelon 60-67-9720Wxdbv gap molar conc16 mmol/L10 - 20 mmol/LOhioHealthCalcium mass conc9.1 mg/dL8.4 - 10.2 mg/dLOhioHealthChloride molar qbmh909 mmol/L98 - 108 mmol/LOhioHealthCreatinine mass conc0.70 mg/dLLow0.8 - 1.3 mg/dLOhioHealthGFR/1.73 sq M predicted among non-blacks MDRD vol rate/area (S/P/Bld)The eGFR should be used for monitoring renal function only and not for medication dosing.[facility] YorkHealthGFR/1.73 sq M.predicted CKD-EPI vol rate/area (S/P/Bld)90>=60 mL/min/1.73 f8WehcLsnqja Glucose mass conc90 mg/dL65 - 99 mg/dLOhioHealthHCO3 molar conc23 mmol/L21 - 32 mmol/LOhioHealthInterpretation and review of laboratory resultsAbnormal OhioHealthPotassium molar conc3.8 mmol/L3.5 - 5.1 mmol/LOhioHealthSodium molar buta824 mmol/L135 - 145 mmol/LOhioHealthUrea nitrogen mass conc6 mg/dLLow8 - 25 mg/dLOhioHealthUrea nitrogen/Creatinine mass ratio8.6 mg/mgLowOhioHealthCBCon 37-67-7709Vsczrxkspwu distribution width Entitic volume (RBC)15.5 %High11.6 - 14.8 %[facility] HospitalHematocrit Volume Fraction (Bld)31.0 %Low41 - 53 %[facility] Hemoglobin mass conc (Bld)10.4 g/dLLow13.5 - 17.5 g/dLOhioHealthInterpretation and review of laboratory resultsAbnormalOhioHealthMCH Entitic mass (RBC)33.4 pg 26 - 34 pgOhioHealthMCHC mass conc (RBC)33.5 g/dL31 - 37 g/dLOkioHealthMCV Entitic volume (RBC)99.7 fL80 - 100 fLOhioHealthNucleated RBC #/vol (Bld)0.00 10*3/uLOhioHealthNucleated RBC/100 WBC Ratio (Bld)0.0 %OhioWooster Community HospitalPlatelet mean volume Entitic volume (Bld)9.7 fL9 - 15.5 fLOhioHealthPlatelets #/vol (Bld)202 10*3/uLOhioHealthComment on above:Platelets clumped on peripheral smear. Results may be affectedRBC #/vol (Bld)3.11 10*6/uLLowOhioHealthWBC #/vol (Bld)3.86 10*3/uLLowOhioHealthECHOCARDIOGRAM COMPLETEon 09-74-9940RIOZBYIFVXZOYI COMPLETE REPORT Patient: SHERRY oJnes Rec#: [id number] (Age): 1940(78y) Height: 188(cm)/73(in) Study Date: 10/08/2018 Weight: 99(kg)/218(lbs) Room#: 2456 BSA: [id number] Type: Inpatient Loc: [facility] Echo Lab Sex: M Reading: MD Nikhil Davalos Referring: AARON CHOI DANIEL Billing And Quality Technician: Geovani Matson RD, T History: Hyperlipidemia Hypertension. Valvular disease. Diagnosis: ICD-10-PCS Encounter for preprocedural cardiovascular examination (Z01.810) Cardiac Complications, not classified (997.1) CPT Code(s): ECHO COMPLETE W/ DOPPLER (24957) [facility] C8923 Echo Full w/ contrast. [...] 0.9) PV peak gradient 3.23 mmHg none IN end-diastolic Vmax 1.41 m/sec none PA end-diastolic pressure 12.95 mmHg none PV acceleration time 77 msec none Electronically Signed at 10/08/2018 17:26:05 by: Emmanuel Connor MD [facility]RE[facility] Patient: SHERRY Carmona Rec#: [id number] (Age): 1940(78y) Height: 188(cm)/73(in) Study Date: 10/08/2018 Weight: 99(kg)/218(lbs) Room#: [facility] BSA: [id number] Type: Inpatient Loc: [facility] Echo Lab Sex: M Reading: Emmanuel Connor MD F Referring: AARON CHOI DANIEL Billing And Quality Technician: Geovani Matson [facility], T History: Hyperlipidemia Hypertension. Valvular disease. Diagnosis: ICD-10-PCS Encounter for preprocedural cardiovascular examination (Z01.810) Cardiac Complications, not classified (997.1) CPT Code(s): ECHO COMPLETE W/ DOPPLER (10813) [facility]S Code C8923 Echo Full w/ contrast. [...] sclerosis is present. There is no hemodynamically sign ificant stenosis. There is mild aortic regurgitation. Mitral [...] 77 BP 134/67 Measurements Chambers MM Name ValueNormal Range AV cusp separation (MM) 1.9 cm none Chambers 2D Name Value Normal Range IVSd (2D) 1.46 cm none LVPWd (2D) 1.34 cm none IVS:LVPW ratio (2D) 1.09 ratio none LVIDd (2D) 4.56 cm none LVIDs (2D) 3.6 cm none LVIDd (2D) index 2.02 cm/m2 none LVIDs (2D) index 1.6 cm/m2 none LV FS (2D) 21.05 %none LV FS (Teichholz) (2D) 21.1 % none [...] 2CH (MOD) 64.6 ml none LA ESV BP(MOD) 66.5 ml none LA ESV BP (MOD) index 29.48 ml/m2 none LV EDV SP 4CH (MOD) 171 ml none LV ESV SP 4CH (MOD) 76.2 ml none EF SP 4CH (MOD) 55.44 % none LV EDV SP 2CH (MOD) 144 ml none LV ESV SP 2CH(MOD) 32.5 ml none EF SP 2CH (MOD) 77.43 % none LV EDV BP 161 ml none LV ESV BP 52.3 ml none BP EF(MOD) 67.52 % none LV EDV BP index [...] 0.9) PV peak gradient 3.23 mmHg none IN end-diastolic Vmax 1.41 m/sec none PA end- diastolic pressure 12.95 mmHg none PV acceleration time 77 msec none Electronically Signed at 10/08/2018 17:26:05 by: Emmanuel Connor MD [facility], Rad In [facility] - 10/08/2018 5:27 PM EST REPORT Patient: SHERRY Bazan [facility] Rec#: [id number] (Age): 1940(78y) Height: 188(cm)/73(in) Study Date: 10/08/2018 Weight: 99(kg)/218(lbs) Room#: 2456 BSA: [id number] Type: Inpatient Loc: [facility] Echo Lab Sex: M Reading: Emmanuel Connor MD F Referring: AARON HCOI DANIEL Billing And Quality Technician: Geovani Matson RD, RVT History: Hyperlipidemia Hypertension. Valvular disease. Diagnosis: ICD-10-PCS Encounter for preprocedural cardiovascular examination (Z01.810) Cardiac Complications, not classified (997.1) CPT Code(s): ECHO COMPLETE W/ DOPPLER (15183) HCPCS Code C8923 Echo Full w/ contrast. [...] 0.9) PV peak gradient 3.23 mmHg none IN end-diastolic Vmax 1.41 m/sec none PA end-diastolic pressure 12.95 mmHg none PV acceleration time 77 msec none Electronically Signed at 10/08/2018 17:26:05 by: Emmanuel Connor MD [facility]PT/INRon [id number] Coag RelTime (PPP)1.1 {INR}[facility] Interpretation and review of laboratory resultsNormalOhioHealthProthrombin time (PT) Coag time (PPP)13.9 sOhioHealthDuring the induction phase of oral anticoagulation, the INR may not reflect the anticoagulation status of the patient. Therapeutic ranges for INR's are: Most clinical situations: INR 2.0-3.0 Mechanical Prosthetic Valve: INR 2.5-3.5 Critical: INR >5.0OhioHealthXR FOOT LEFT 2 VIEWSon [id number] FOOT LEFT 2 VIEWSEXAMINATION: 2 XRAY VIEWS [...] articulations. Surgical drain present. CASSANDRA/karie Workstation ID: [id number] Dictated by: NAT RHODES on MonOct 08, 2018 1:43:13 PM EST Transcribed by: JAK WATSON on MonOct 08, 2018 2:16:35 PM EST Finalized by: NAT RHODES on MonOct 11, 2018 8:36:46 AM [facility] CarrolltonComment on above:Order Comment: Reason for exam?:post-op foot / ankle Injury/Trauma or Illness?:Illness/Other How long have you had these symptoms (acute/chronic)?:Unknown History of cancer?:unk Surgeries, chemotherapy, or radiation?:YES Type of Exam?:Ongoing Additional signs and symptoms?:UNLCreatinine, Serumon 40-27-6058Womslkncjl mass conc0.70 mg/dLLow0.8 - 1.3 mg/dLOhioHealthGFR/1.73 sq M predicted among non- blacks MDRD vol rate/area (S/P/Bld)The eGFR should be used for monitoring renal function only and not for medication dosing.OhioHealthGFR/1.73 sq M.predicted CKD-EPI vol rate/area (S/P/Bld)90>=60 mL/min/1.73 z2LcbfHokywtYyayxeuglqzzqi and review of laboratory resultsAbnormalOhioHealthVancomycin Level, Troughon 60-02-0206Qfimmpdkgdltlj and review of laboratory resultsNormalOhioHealth Vancomycin trough mass conc10.9 ug/mLOhioHealthXR FOOT LEFT 3+ VIEWS (STANDARD) on . Limited evaluation due to overlying dressing material and diffuse osteopenia. No radiographic evidence of soft tissue gas. No radiographic evidence of new area of osseous destruction. 2. No acute osseous abnormalities identified. RECOMMENDATIONS: If further evaluation is clinically warranted, con rig hand MRI or CT. [facility]/dbg Workstation ID: [id number], Rad In [facility] - 10/06/2018 3:46 PM EST EXAMINATION: [...] is clinically warranted, consider MRI or CT. [facility]/dbg Workstation ID: [id number]: 3 XRAY VIEWS OF THE LEFT FOOT [...] Plate and screw fixation of the distal tibia.[facility] Basic Metabolic Panelon [id number] gap molar conc15 mmol/L10 - 20 mmol/L OhioHealthCalcium mass conc9.1 mg/dL8.4 - 10.2 mg/dLOhioHealthChloride molar bolp354 mmol/LHigh98 - 108 mmol/LOhioHealthCreatinine mass conc0.67 mg/dLLow0.8 - 1.3 mg/dLOhioHealthGFR/1.73 sq M predicted among non-blacks MDRD vol rate/area (S/P/Bld)The eGFR should be used for monitoring renal function only and not for medication dosing.[facility] YorkHealthGFR/1.73 sq M.predicted CKD-EPI vol rate/area (S/P/Bld)91>=60 mL/min/1.73 o4FhvmGeoybuFphwlsm mass conc92 mg/dL65 - 99 mg/dL New YorkHealthHCO3 molar conc23 mmol/L21 - 32 mmol/LOhioHealthInterpretation and review of laboratory resultsAbnormalOhioHealthPotassium molar conc4.2 mmol/L3.5 - 5.1 mmol/LOhioHealthSodium molar kahv744 mmol/L135 - 145 mmol/LOhioHealthUrea nitrogen mass conc9 mg/dL8 - 25 mg/dLOhioHealthUrea nitrogen/Creatinine mass ratio13.4 mg/mgOhioWooster Community HospitalCBCon [id number]H SMEAR REVIEWED MANUALLYOhCleveland Clinic Union HospitalErythrocyte distribution width Entitic volume (RBC)15.5 %High 11.6 - 14.8 %[facility] HospitalHematocrit Volume Fraction (Bld)31.9 %Low41 - 53 % [facility] HospitalHemoglobin mass conc (Bld)11.0 g/dLLow13.5 - 17.5 g/dLWilson Memorial Hospital Interpretation and review of laboratory resultsAbnormalOhioHealthMCH Entitic mass (RBC)34.2 ppTvlc89 - 34 pgOhioHealthMCHC mass conc (RBC)34.5 g/dL31 - 37 g/dLWilson Memorial HospitalMCV Entitic volume (RBC)99.1 fL80 - 100 fLOhioHealthNucleated RBC #/vol (Bld)0.00 10*3/uLOhioHealthNucleated RBC/100 WBC Ratio (Bld)0.0 % [facility] HospitalPlatelet mean volume Entitic volume (Bld)9.5 fL9 - 15.5 fLOhioHealth Platelets #/vol (Bld)237 10*3/uLOhioHealthRBC #/vol (Bld)3.22 10*6/uLLow OhioHealthWBC #/vol (Bld)3.95 10*3/uLLowOhioHealthPrewarmed Patient has cold agglutinin.[facility] WITH AUTO DIFFERENTIALon 26-96-2951Acnvrlskb #/vol (Bld)0.03 10*3/uLOhioHealthBasophils/100 WBC (Bld)0.6 %[facility] HospitalEosinophils #/vol (Bld)0.14 10*3/uLOhioHealthEosinophils/100 WBC (Bld)3.0 %[facility] Erythrocyte distribution width Entitic volume (RBC)15.7 %High11.6 - 14.8 % [facility] HospitalHematocrit Volume Fraction (Bld)32.7 %Low41 - 53 %[facility] HospitalHemoglobin mass conc (Bld)11.3 g/dLLow13.5 - 17.5 g/dLOhioHealthImmature granulocytes #/vol (Bld)0.02 10*3/uLOhioHealthImmature granulocytes/100 WBC (Bld)0.40 % OhioHealthComment on above:The IG parameter is the percentage of metamyelocytes, myelocytes, and promyelocytes.Interpretation and review of laboratory results AbnormalOhioHealthLymphocytes #/vol (Bld)0.94 10*3/uLOhioHealthLymphocytes/100 WBC (Bld)20.3 %[facility] Entitic mass (RBC)33.6 pg26 - 34 pgOhioHealthMCHC mass conc (RBC)34.6 g/dL31 - 37 g/dLOhioHealthMCV Entitic volume (RBC)97.3 fL80 - 100 fLOhioHealthMonocytes #/vol (Bld)0.46 10*3/uLOhioHealthMonocytes/100 WBC (Bld)10.0 %OhioHealthNeutrophils #/vol (Bld)3.03 10*3/uLOhioHealth Neutrophils/100 WBC (Bld)65.7 %OhioHealthNucleated RBC #/vol (Bld)0.00 10*3/uL OhioHealthNucleated RBC/100 WBC Ratio (Bld)0.0 %[facility] HospitalPlatelet mean volume Entitic volume (Bld)8.5 fLLow9 - 15.5 fLOhioHealthPlatelets #/vol (Bld)248 10*3/uLOhioHealthRBC #/vol (Bld)3.36 10*6/uLLowOhioHealthWBC #/vol (Bld)4.62 10*3/uLOhioHealthCRP, Inflammationon 53-84-6016JLG mass conc12.5 mg/LHigh0 - 10 mg/LOhioHealthInterpretation and review of laboratory resultsAbnormSouthwest General Health Center Comprehensive Metabolic Panelon 28-97-3113Bwyxtcl mass conc3.5 g/dL3.2 - 5.2 g/dLOhioHealthALP enzyme act/heg069 U/L40 - 150 U/LOhioHealthALT enzyme act/vol 25 U/L0 - 40 U/LOhioHealthAnion gap molar conc16 mmol/L10 - 20 mmol/LOhioHealth AST enzyme act/vol25 U/L0 - 45 U/LOhioHealthBilirubin mass conc0.5 mg/dL0 - 1.3 mg/dLOhioHealthCalcium mass conc9.3 mg/dL8.4 - 10.2 mg/dLOhioHealthChloride molar uqqx426 mmol/L98 - 108 mmol/LOhioHealthCreatinine mass conc0.92 mg/dL0.8 - 1.3 mg/dLOhioHealthGFR/1.73 sq M predicted among non-blacks MDRD vol rate/area (S/P/Bld)The eGFR should be used for monitoring renal function only and not for medication dosing.OhioHealthGFR/1.73 sq M.predicted CKD-EPI vol rate/area (S/P/Bld)79>=60 mL/min/1.73 q9MnxxGwwmjyPidsvjp mass conc94 mg/dL65 - 99 mg/dL [facility] HospitalHCO3 molar conc26 mmol/L21 - 32 mmol/LOhioHealthInterpretation and review of laboratory resultsNormalOhioHealthPotassium molar conc4.6 mmol/L3.5 - 5.1 mmol/LOhioHealthProtein mass conc6.9 g/dL6 - 8 g/dLOhioHealthSodium molar aqme424 mmol/L135 - 145 mmol/LOhioHealthUrea nitrogen mass conc12 mg/dL8 - 25 mg/dLOhioHealthUrea nitrogen/Creatinine mass ratio13.0 mg/mgOhioHealthHemoglobin A1con 06-71-3368Joyqxlx glucose Estimated from glycated hemoglobin mass conc (Bld)88 mg/dL68 - 126 mg/dLOhioHealthHemoglobin A1c/Hemoglobin.total mass fraction (Bld)4.7 %4.2 - 6 %OhioHealthInterpretation and review of laboratory resultsNormalOhioHealthSedimentation Rateon 86-54-3309FVI Velocity (Bld)9 mm/h OhioHealthInterpretation and review of laboratory resultsNormalOhioHealthXR FOOT LEFT 3+ VIEWS (STANDARD)on 33-04-8140AF FOOT LEFT 3+ VIEWS (STANDARD) EXAMINATION: 3 [...] PM EST Finalized by: MOJGAN PINO on [facility] Oct 06, 2018 3:44:00 PM [facility] CarrolltonComment on above:Order Comment: Reason for exam?:Left foot gangrene Injury/Trauma or Illness?:Illness/Other How long have you had these symptoms (acute/chronic)?:Unknown History of cancer?:unk Surgeries, chemotherapy, or radiation?:unk Type of Exam?:Unknown Additional signs and symptoms?:Left foot gangreneAlbuminon 17-64-9020Wyoziyf mass conc3.3 g/dL3.2 - 5.2 g/dLOhioHealthInterpretation and review of laboratory resultsNormalOhioHealthOtheron 72-11-1762Om acute osseous abnormalities identified. Status post remote ORIF of the distal fibula. Extensive vascular calcifications. WTW/m2fxs Workstation ID: [id number]: XR FOOT LEFT 3+ [...] osseous lesions or bony demineralization. Extensive vascular calcifications.[facility] - 09/21/2018 12:01 AM EST EXAMINATION: [...] of the distal fibula. Extensive vascular calcifications. [employer] Workstation ID: [id number] and review of laboratory results AbnormalOhioHealthPrealbuminon 83-81-6809Xetqbvphyr mass conc16.7 mg/dLLow20 - 40 mg/dLOhioHealthProtein,Totalon 61-06-1338Bxyfyld mass conc5.9 g/dLLow6 - 8 g/dLOhioHealthBasic Metabolic Panelon 86-85-0426Gxllt gap molar conc12 mmol/L10 - 20 mmol/LOhioHealthCalcium mass conc8.9 mg/dL8.4 - 10.2 mg/dLOhioHealth Chloride molar yilb117 mmol/L98 - 108 mmol/LOhioHealthCreatinine mass conc0.56 mg/dLLow0.8 - 1.3 mg/dLOhioHealthGFR/1.73 sq M predicted among non-blacks MDRD vol rate/area (S/P/Bld)The eGFR should be used for monitoring renal function only and not for medication dosing.[facility] HospitalGFR/1.73 sq M.predicted CKD-EPI vol rate/area (S/P/Bld)98>=60 mL/min/1.73 c6CqldGxdozbXnljnuy mass fpqi170 mg/dL High65 - 99 mg/dLOhioHealthHCO3 molar conc24 mmol/L21 - 32 mmol/LOhioHealth Interpretation and review of laboratory resultsAbnormalOhioHealthPotassium molar conc4.0 mmol/L3.5 - 5.1 mmol/LOhioHealthSodium molar fpjq833 mmol/DEvj098 - 145 mmol/LOhioHealthUrea nitrogen mass conc12 mg/dL8 - 25 mg/dLOhioHealthUrea nitrogen/Creatinine mass ratio21.4 mg/mgHighOhioHealthCBCon 09-13-2018 Erythrocyte distribution width Entitic volume (RBC)14.1 %11.6 - 14.8 %[facility] Hematocrit Volume Fraction (Bld)25.4 %Low41 - 53 %[facility] HospitalHemoglobin mass conc (Bld)8.6 g/dLLow13.5 - 17.5 g/dLOhioHealthInterpretation and review of laboratory resultsAbnormNationwide Children's HospitalH Entitic mass (RBC)31.2 pg26 - 34 pg [facility] HospitalHC mass conc (RBC)33.9 g/dL31 - 37 g/dLOhioHealthComment on above: Cold Agglutinin presentV Entitic volume (RBC)92.0 fL80 - 100 fLOhioHealth Nucleated RBC #/vol (Bld)0.00 10*3/uLOhioHealthNucleated RBC/100 WBC Ratio (Bld) 0.0 %OhioWooster Community HospitalPlatelet mean volume Entitic volume (Bld)10.0 fL9 - 15.5 fL [facility] HospitalPlatelets #/vol (Bld)258 10*3/uLOhioHealthRBC #/vol (Bld)2.76 10*6/uL LowOhioHealthWBC #/vol (Bld)9.14 10*3/uLOhioHealthHemoglobin and Hematocriton 33-64-7824Treeukxocr Volume Fraction (Bld)24.1 %Low41 - 53 %OhioHealthHemoglobin mass conc (Bld)7.7 g/dLLow13.5 - 17.5 g/dLOhioHealthInterpretation and review of laboratory resultsAbnormalOhioHealthPT/INRon 13-82-3107QPN Coag RelTime (PPP) 1.2 {INR}HighOhioHealthInterpretation and review of laboratory resultsAbnormal OhioHealthProthrombin time (PT) Coag time (PPP)14.9 sHighOhioHealthDuring the induction phase of oral anticoagulation, the INR may not reflect the anticoagulation status of the patient. Therapeutic ranges for INR's are: Most clinical situations: INR 2.0-3.0 Mechanical Prosthetic Valve: INR 2.5-3.5 Critical: INR >5.0OhioHealthBasic Metabolic Panelon 98-66-5816Vzyjs gap molar conc11 mmol/L10 - 20 mmol/LOhioHealthCalcium mass conc8.6 mg/dL8.4 - 10.2 mg/dL OhioHealthChloride molar conc97 mmol/LLow98 - 108 mmol/LOhioHealthCreatinine mass conc0.78 mg/dLLow0.8 - 1.3 mg/dLOhioHealthGFR/1.73 sq M predicted among non-blacks MDRD vol rate/area (S/P/Bld)The eGFR should be used for monitoring renal function only and not for medication dosing.OhioHealthGFR/1.73 sq M.predicted CKD-EPI vol rate/area (S/P/Bld)86>=60 mL/min/1.73 y8JtjgVorfpm Glucose mass dmzf452 mg/zYEzst74 - 99 mg/dLOhioHealthHCO3 molar conc26 mmol/L21 - 32 mmol/LOhioHealthInterpretation and review of laboratory resultsAbnormal OhioHealthPotassium molar conc4.7 mmol/L3.5 - 5.1 mmol/LOhioHealthSodium molar qwkb555 mmol/PFsn093 - 145 mmol/LOhioHealthUrea nitrogen mass conc12 mg/dL8 - 25 mg/dLOhioHealthUrea nitrogen/Creatinine mass ratio15.4 mg/mgOhioHealthCBCon 68-08-8619Qxgeuewntak distribution width Entitic volume (RBC)13.8 %11.6 - 14.8 % OhioWooster Community HospitalHematocrit Volume Fraction (Bld)25.6 %Low41 - 53 %[facility] HospitalHemoglobin mass conc (Bld)8.9 g/dLLow13.5 - 17.5 g/dLOhioHealthInterpretation and review of laboratory resultsAbnoNorwalk Memorial Hospital Entitic mass (RBC)31.4 pg26 - 34 pg [facility] mass conc (RBC)34.8 g/dL31 - 37 g/dLOhioHealthComment on above: Cold Agglutinin presentMCV Entitic volume (RBC)90.5 fL80 - 100 fLOhioHealth Nucleated RBC #/vol (Bld)0.00 10*3/uLOhioHealthNucleated RBC/100 WBC Ratio (Bld) 0.0 %OhioHealthPlatelet mean volume Entitic volume (Bld)10.0 fL9 - 15.5 fL OhioHealthPlatelets #/vol (Bld)272 10*3/uLOhioHealthRBC #/vol (Bld)2.83 10*6/uL LowOhioHealthWBC #/vol (Bld)10.20 10*3/uLOhioHealthWhile on heparinOhioHealth Erythrocyte distribution width Entitic volume (RBC)14.1 %11.6 - 14.8 %[facility] Hematocrit Volume Fraction (Bld)24.2 %Low41 - 53 %[facility] HospitalHemoglobin mass conc (Bld)8.2 g/dLLow13.5 - 17.5 g/dLOhioHealthInterpretation and review of laboratory resultsAbnormTogus VA Medical Center Entitic mass (RBC)30.5 pg26 - 34 pg [facility] mass conc (RBC)33.9 g/dL31 - 37 g/dLOhioHealthComment on above: Cold Agglutinin presentMCV Entitic volume (RBC)90.0 fL80 - 100 fLOhioHealth Nucleated RBC #/vol (Bld)0.00 10*3/uLOhioHealthNucleated RBC/100 WBC Ratio (Bld) 0.0 %OhioHealthPlatelet mean volume Entitic volume (Bld)9.8 fL9 - 15.5 fL OhioHealthPlatelets #/vol (Bld)246 10*3/uLOhioHealthRBC #/vol (Bld)2.69 10*6/uL LowOhioHealthWBC #/vol (Bld)9.04 10*3/uLOhioHealthHemoglobin and Hematocriton 90-86-9591Qpcpoqdyyk Volume Fraction (Bld)20.5 %Low41 - 53 %OhioHealthHemoglobin mass conc (Bld)8.1 g/dLLow13.5 - 17.5 g/dLOhioHealthComment on above:Peripheral smear reviewed manuallyInterpretation and review of laboratory resultsAbnormal OhioHealthPT/INRon 92-25-0938MMP Coag RelTime (PPP)1.2 {INR}HighOhioHealth Interpretation and review of laboratory resultsAbnormalOhioHealthProthrombin time (PT) Coag time (PPP)14.6 sHighOhioHealthDuring the induction phase of oral anticoagulation, the INR may not reflect the anticoagulation status of the patient. Therapeutic ranges for INR's are: Most clinical situations: INR 2.0-3.0 Mechanical Prosthetic Valve: INR 2.5-3.5 Critical: INR >5.0OhioHealthBasic Metabolic Panelon 11-58-7852Gynxa gap molar conc15 mmol/L10 - 20 mmol/L OhioHealthCalcium mass conc8.9 mg/dL8.4 - 10.2 mg/dLOhioHealthChloride molar conc95 mmol/LLow98 - 108 mmol/LOhioHealthCreatinine mass conc0.65 mg/dLLow0.8 - 1.3 mg/dLOhioHealthGFR/1.73 sq M predicted among non-blacks MDRD vol rate/area (S/P/Bld)The eGFR should be used for monitoring renal function only and not for medication dosing.OhioHealthGFR/1.73 sq M.predicted CKD-EPI vol rate/area (S/P/Bld)93>=60 mL/min/1.73 w1TmzbWnujysFynkfun mass aiys100 mg/nRSyxw05 - 99 mg/dLOhioHealthHCO3 molar conc26 mmol/L21 - 32 mmol/LOhioHealthInterpretation and review of laboratory resultsAbnormalOhioHealthPotassium molar conc4.8 mmol/L 3.5 - 5.1 mmol/LOhioHealthComment on above:Slightly HemolyzedSodium molar conc 131 mmol/UEcn587 - 145 mmol/LOhioHealthUrea nitrogen mass conc11 mg/dL8 - 25 mg/dLOhioHealthUrea nitrogen/Creatinine mass ratio16.9 mg/mgOhioHealthCBCon 33-61-0999Rbukvqecnqf distribution width Entitic volume (RBC)13.3 %11.6 - 14.8 % OhioHealthHematocrit Volume Fraction (Bld)24.4 %Low41 - 53 %OhioHealthHemoglobin mass conc (Bld)8.1 g/dLLow13.5 - 17.5 g/dLOhioHealthInterpretation [...] (Bld)2.66 10*6/uL LowOhioHealthWBC #/vol (Bld)7.28 10*3/uLOhioHealthPREPARE RBCon 04-09-9072ORC and Rh group Nom (Bld)O PosOhioHealthABO and Rh group Nom (Bld)5100OhioHealth Cross MatchCompatibleOhioHealthProtein mass concRed Blood CellsOhioHealthProtein mass cqydX7123I22HmqxTqhdzsApbffv InfoTransfusedOhioHealthUnit Number [id number]/INRon 15-80-5006NNL Coag RelTime (PPP)1.2 {INR}High OhioHealthInterpretation and review of laboratory resultsAbnormalOhiUpper Valley Medical Center Prothrombin time (PT) Coag time (PPP)14.7 sHighOhioHealthDuring the induction phase of oral anticoagulation, the INR may not reflect the anticoagulation stat us of the patient. Therapeutic ranges for INR's are: Most clinical situations: INR 2.0-3.0 Mechanical Prosthetic Valve: INR 2.5-3.5 Critical: INR >5.0 OhioHealthType and Screenon 66-43-5586EFG and Rh group Nom (Bld)O Positive [facility] HospitalBlood group antibody screen QlNegativeOhioHealthSpecimen Expires 09/14/2018 23:59 ESTOhioHealthBasic Metabolic Panelon 62-96-7152Bajme gap molar conc13 mmol/L10 - 20 mmol/LOhioHealthCalcium mass conc8.9 mg/dL8.4 - 10.2 mg/dL OhioHealthChloride molar conc99 mmol/L98 - 108 mmol/LOhioHealthCreatinine mass conc0.67 mg/dLLow0.8 - 1.3 mg/dLOhioHealthGFR/1.73 sq M predicted among non- blacks MDRD vol rate/area (S/P/Bld)The eGFR should be used for monitoring renal function only and not for medication dosing.OhioHealthGFR/1.73 sq M.predicted CKD-EPI vol rate/area (S/P/Bld)91>=60 mL/min/1.73 o8JatoXgbzenKajfgmb mass conc 116 mg/wHHnlz49 - 99 mg/dLOhioHealthHCO3 molar conc27 mmol/L21 - 32 mmol/L OhioWooster Community HospitalInterpretation and review of laboratory resultsAbnormalOhioHealth Potassium molar conc4.6 mmol/L3.5 - 5.1 mmol/LOhioHealthSodium molar tjem926 mmol/VJsh784 - 145 mmol/LOhioHealthUrea nitrogen mass conc12 mg/dL8 - 25 mg/dL OhioWooster Community HospitalUrea nitrogen/Creatinine mass ratio17.9 mg/mgOhioHealthCBCon 91-62-8713Oonyfovgoip distribution width Entitic volume (RBC)13.2 %11.6 - 14.8 % OhioW[facility]oster Community HospitalHematocrit Volume Fraction (Bld)22.2 %Low41 - 53 %OhioHealthHemoglobin mass conc (Bld)7.6 g/dLLow13.5 - 17.5 g/dLOhioHealthInterpretation and review of laboratory resultsAbnormalOhioHealthMCH Entitic mass (RBC)32.5 pg26 - 34 pg OhioHealthMCHC mass conc (RBC)34.2 g/dL31 - 37 g/dLOhioHighland District HospitalV Entitic volume (RBC)94.9 fL80 - 100 fLOhioHealthNucleated RBC #/vol (Bld)0.00 10*3/uLOhioHealth Nucleated RBC/100 WBC Ratio (Bld)0.0 %OhioHealthPlatelet mean volume Entitic volume (Bld)9.3 fL9 - 15.5 fLOhioHealthPlatelets #/vol (Bld)246 10*3/uL OhioHealthRBC #/vol (Bld)2.34 10*6/uLLowOhioHealthWBC #/vol (Bld)7.13 10*3/uL OhioHealthWhile on heparinOhioHealthErythrocyte distribution width Entitic volume (RBC)13.2 %11.6 - 14.8 %[facility] HospitalHematocrit Volume Fraction (Bld)22.0 % Low41 - 53 %[facility] HospitalHemoglobin mass conc (Bld)7.5 g/dLLow13.5 - 17.5 g/dL [facility] HospitalInterpretation and review of laboratory resultsAbnormalOProMedica Flower Hospital Entitic mass (RBC)32.1 pg26 - 34 pgOkioHighland District HospitalHC mass conc (RBC)34.1 g/dL31 - 37 g/dLOhioHealthV Entitic volume (RBC)94.0 fL80 - 100 fLOhioHealthNucleated RBC #/vol (Bld)0.00 10*3/uLOhioHealthNucleated RBC/100 WBC Ratio (Bld)0.0 % OhioHealthPlatelet mean volume Entitic volume (Bld)9.2 fL9 - 15.5 fLOhioHealth Platelets #/vol (Bld)234 10*3/uLOhioHealthRBC #/vol (Bld)2.34 10*6/uLLow OhioHealthWBC #/vol (Bld)7.34 10*3/uLOhioHealthEKGon 63-74-2414Fgbqimp by an unspecified provider. [facility] HospitalPT/INRon 11-15-8245HKZ Coag RelTime (PPP)1.2 {INR}HighOhioHealth Interpretation and review of laboratory resultsAbnormalOhioHealthProthrombin time (PT) Coag time (PPP)14.4 sHighOhioHealthDuring the induction phase of oral anticoagulation, the INR may not reflect the anticoagulation status of the patient. Therapeutic ranges for INR's are: Most clinical situations: INR 2.0-3.0 Mechanical Prosthetic Valve: INR 2.5-3.5 Critical: INR >5.0OhioHealthUS Doppler ankle/brachial indexon 41-41-3884Akw-Invasive Vascular Patient: SHERRY Bazan [facility] Rec#: [id number] (Age): 1940(78y) Study Date: 09/10/2018 Room#: 8506 Type: Inpatient Sex: M Reading: [place] Reading: Ben Hahn MD, RPVI Referring: Esau Alejandro Assembler Body: Andre Madrid RDCS/INOCENCIO Procedure Info: [id number] Study Quality: Lower Arterial Doppler: adequate Diagnosis: [...] 09/10/2018 17:30:46 by: Ben Hahn MD, RPVI [facility]/10/2018 5:37 PM EST Non- Invasive Vascular Patient: SHERRY Bazan [facility] Rec#: [id number] (Age): 1940(78y) Study Date: 09/10/2018 Room#: 8506 Type: Inpatient Sex: M Reading: [place] Reading: Ben Hahn MD, RPVI Referring: Esau Alejandro Assembler Body: Andre Madrid RDALBERT/RVShahnaz Procedure Info: [id number] Study Quality: Lower Arterial Doppler: adequate Diagnosis: [...] 09/10/2018 17:30:46 by: Ben Hahn MD, RPVI [facility] Metabolic Panelon 82-10-8284Ncoxe gap molar conc12 mmol/L10 - 20 mmol/LOhioHealthCalcium mass conc8.9 mg/dL8.4 - 10.2 mg/dLOhioHealthChloride molar conc99 mmol/L98 - 108 mmol/LOhioHealthCreatinine mass conc0.71 mg/dLLow0.8 - 1.3 mg/dLOhioHealthGFR/1.73 sq M predicted among non-blacks MDRD vol rate/area (S/P/Bld)The eGFR should be used for monitoring renal function only and not for medication dosing.[facility] YorkHealthGFR/1.73 sq M.predicted CKD-EPI vol rate/area (S/P/Bld)89>=60 mL/min/1.73 m7FqfzBszivaXachiio mass dump699 mg/dLHigh 65 - 99 mg/dLOhioHealthHCO3 molar conc28 mmol/L21 - 32 mmol/LOhioHealth Interpretation and review of laboratory resultsAbnormalOhioHealthPotassium molar conc4.3 mmol/L3.5 - 5.1 mmol/LOhioHealthSodium molar kujz336 mmol/L135 - 145 mmol/LOhioHealthUrea nitrogen mass conc13 mg/dL8 - 25 mg/dLOhioHealthUrea nitrogen/Creatinine mass ratio18.3 mg/mgOhioHealthCBCon 90-98-0773Rwcjrdpqrpd distribution width Entitic volume (RBC)13.2 %11.6 - 14.8 %[facility] HospitalHematocrit Volume Fraction (Bld)23.0 %Low41 - 53 %[facility] HospitalHemoglobin mass conc (Bld)7.7 g/dLLow13.5 - 17.5 g/dLOhioHealthComment on above:Cold Agglutinin present Interpretation and review of laboratory resultsAbnormalOhioHealthMCH Entitic mass (RBC)30.4 pg26 - 34 pgOhioHealthHC mass conc (RBC)33.5 g/dL31 - 37 g/dL [facility] Entitic volume (RBC)90.9 fL80 - 100 fLOhioHealthNucleated RBC #/vol (Bld)0.00 10*3/uLOhioHealthNucleated RBC/100 WBC Ratio (Bld)0.0 % [facility] mean volume Entitic volume (Bld)9.4 fL9 - 15.5 fLOBrecksville VA [facility] Platelets #/vol (Bld)207 10*3/uLOhioHealthRBC #/vol (Bld)2.53 10*6/uLLow [facility] HospitalWBC #/vol (Bld)6.48 10*3/uLOhioHealthHemoglobin and Hematocriton 88-19-3124Uhyvnfuyws Volume Fraction (Bld)22.8 %Low41 - 53 %[facility] HospitalHemoglobin mass conc (Bld)8.0 g/dLLow13.5 - 17.5 g/dLOhioHealthInterpretation and review of laboratory resultsAbnormalOOur Lady of Mercy Hospital - AndersonthHematocrit Volume Fraction (Bld)22.9 %Low 41 - 53 %OhioWooster Community HospitalHemoglobin mass conc (Bld)7.7 g/dLLow13.5 - 17.5 g/dL OhioWooster Community HospitalInterpretation and review of laboratory resultsAbnormOur Lady of Mercy Hospital - Andersonth PT/INRon 70-00-2815YJR Coag RelTime (PPP)1.2 {INR}HighOhioHealthInterpretation and review of laboratory resultsAbnormSouthwest General Health CenterProthrombin time (PT) Coag time (PPP)15.1 sHighOhioHealthDuring the induction phase of oral anticoagulation, the INR may not reflect the anticoagulation status of the patient. Therapeutic ranges for INR's are: Most clinical situations: INR 2.0-3.0 Mechanical Prosthetic Valve: INR 2.5-3.5 Critical: INR >5.0OhioHealthBasic Metabolic Panelon 68-44-2450Woubw gap molar conc16 mmol/L10 - 20 mmol/L [facility] HospitalCalcium mass conc9.0 mg/dL8.4 - 10.2 mg/dLOhioHealthChloride molar conc99 mmol/L98 - 108 mmol/LOhioHealthCreatinine mass conc0.56 mg/dLLow0.8 - 1.3 mg/dLOhioHealthGFR/1.73 sq M predicted among non-blacks MDRD vol rate/area (S/P/Bld)The eGFR should be used for monitoring renal function only and not for medication dosing.New YorkHealthGFR/1.73 sq M.predicted CKD-EPI vol rate/area (S/P/Bld)98>=60 mL/min/1.73 b3StjqBzqkthIvdhema mass atgl366 mg/fCEwxr44 - 99 mg/dLOhioHealthHCO3 molar conc23 mmol/L21 - 32 mmol/LOhioHealthInterpretation and review of laboratory resultsAbnormalOhioHealthPotassium molar conc4.5 mmol/L 3.5 - 5.1 mmol/LOhioHealthSodium molar gcpp103 mmol/RXbj540 - 145 mmol/L OhioHealthUrea nitrogen mass conc8 mg/dL8 - 25 mg/dLOhioHealthUrea nitrogen/Creatinine mass ratio14.3 mg/mgOhioHealthCBCon 17-27-4674Djuvonveokg distribution width Entitic volume (RBC)12.9 %11.6 - 14.8 %[facility] HospitalHematocrit Volume Fraction (Bld)29.9 %Low41 - 53 %[facility] HospitalHemoglobin mass conc (Bld)10.0 g/dLLow13.5 - 17.5 g/dLOhioHealthInterpretation and review of laboratory results AbnormalOhioHealthMCH Entitic mass (RBC)30.3 pg26 - 34 pgOhioHealthMCHC mass conc (RBC)33.4 g/dL31 - 37 g/dLOhioHealthComment on above:Cold Agglutinin presentMCV Entitic volume (RBC)90.6 fL80 - 100 fLOhioHealthNucleated RBC #/vol (Bld)0.00 10*3/uLOhioHealthNucleated RBC/100 WBC Ratio (Bld)0.0 %[facility] Platelet mean volume Entitic volume (Bld)10.5 fL9 - 15.5 fLOhioHealthPlatelets #/vol (Bld)209 10*3/uLOhioHealthRBC #/vol (Bld)3.30 10*6/uLLowOhioHealthWBC #/vol (Bld)11.23 10*3/uLHighOhioHealthPT/INRon 44-17-8160AZZ Coag RelTime (PPP) 1.2 {INR}HighOhioHealthInterpretation and review of laboratory resultsAbnormal OhioHealthProthrombin time (PT) Coag time (PPP)14.9 sHighOhioHealthDuring the induction phase of oral anticoagulation, the INR may not reflect the anticoagulation status of the patient. Therapeutic ranges for INR's are: Most clinical situations: INR 2.0-3.0 Mechanical Prosthetic Valve: INR 2.5-3.5 Critical: INR >5.0OhioHealthXR Fluoroscopy Timeon 69-41-9453Tisf is an auto finalized result. Please refer to patient chart for further information. OhioHealthXR OR Angio Addon 09-80-3764Nyww is an auto finalized result. Please refer to patient chart for further information.OhioHealthAPTTon 81-33-9365rMBJ Coag time (Bld)74 sHighOhioHealthaPTT Coag time (Bld)Therapeutic range for APTT's is 68 - 104 secondsOhioHealthInterpretation and review of laboratory resultsAbnormalOhioHealthaPTT Coag time (Bld)47 sHighOhioHealthaPTT Coag time (Bld)Therapeutic range for APTT's is 68 - 104 secondsOhioHealthaPTT Coag time (Bld)38 sHighOhioHealthaPTT Coag time (Bld)Results checked. Therapeutic range for APTT's is 68 - 104 secondsOhioHealthInterpretation and review of laboratory resultsAbnormalOhioHealthBasic Metabolic Panelon 35-82-6635Vjdfz gap molar conc 15 mmol/L10 - 20 mmol/LOhioHealthCalcium mass conc9.4 mg/dL8.4 - 10.2 mg/dL OhioHealthChloride molar conc99 mmol/L98 - 108 mmol/LOhioHealthCreatinine mass conc0.69 mg/dLLow0.8 - 1.3 mg/dLOhioHealthGFR/1.73 sq M predicted among non- blacks MDRD vol rate/area (S/P/Bld)The eGFR should be used for monitoring renal function only and not for medication dosing.OhioHealthGFR/1.73 sq M.predicted CKD-EPI vol rate/area (S/P/Bld)90>=60 mL/min/1.73 l4TflzYxxhcbSedcvlr mass conc 110 mg/tQWmcx44 - 99 mg/dLOhioHealthHCO3 molar conc25 mmol/L21 - 32 mmol/L OhioHealthInterpretation and review of laboratory resultsAbMercer County Community Hospital Potassium molar conc4.0 mmol/L3.5 - 5.1 mmol/LOhioHealthSodium molar spne668 mmol/L135 - 145 mmol/LOhioHealthUrea nitrogen mass conc9 mg/dL8 - 25 mg/dL [facility] HospitalUrea nitrogen/Creatinine mass ratio13.0 mg/mgOhioHealthCBCon 67-89-4703Yrfqxcfuggn distribution width Entitic volume (RBC)12.9 %11.6 - 14.8 % OhioWooster Community HospitalHematocrit Volume Fraction (Bld)31.6 %Low41 - 53 %OhioWooster Community HospitalHemoglobin mass conc (Bld)10.8 g/dLLow13.5 - 17.5 g/dLOhioHealthInterpretation and review of laboratory resultsAbnoTriHealth Bethesda North HospitalH Entitic mass (RBC)30.9 pg26 - 34 pg [facility] HospitalHC mass conc (RBC)34.2 g/dL31 - 37 g/dLOhioHealthComment on above: Cold Agglutinin presentMCV Entitic volume (RBC)90.3 fL80 - 100 fLOhioHealth Nucleated RBC #/vol (Bld)0.00 10*3/uLOhioHealthNucleated RBC/100 WBC Ratio (Bld) 0.0 %OhioWooster Community HospitalPlatelet mean volume Entitic volume (Bld)10.1 fL9 - 15.5 fL OhioHealthPlatelets #/vol (Bld)212 10*3/uLOhioHealthRBC #/vol (Bld)3.50 10*6/uL LowOhioHealthWBC #/vol (Bld)5.93 10*3/uLOhioHealthOtheron 09-07-2018 Interpretation and review of laboratory resultsAbnoGreene Memorial HospitalPT/INRon 26-34-9686MNY Coag RelTime (PPP)1.2 {INR}HighOhioHealthProthrombin time (PT) Coag time (PPP)14.7 sHighOhioHealthDuring the induction phase of oral anticoagulation, the INR may not reflect the anticoagulation status of the patient. Therapeutic ranges for INR's are: Most clinical situations: INR 2.0-3.0 Mechanical Prosthetic Valve: INR 2.5-3.5 Critical: INR >5.0OhioHealthXR Chest 1 Viewon 76-93-2669Ekpeeavme, Rad In Kary Speechq - 09/07/2018 9:53 AM EST EXAMINATION: AP CHEST HISTORY: Hypoxia. COMPARISON: 08/01/[address] [facility]. 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 Coronary artery stents are visualized. Minimal linear scarring at the lung bases, unchanged. No pneumothorax. No definite pleural effusion no new opacities. IMPRESSION: Stable chest. No acute disease. [employer] Workstation ID: [id number]: AP CHEST HISTORY: Hypoxia. COMPARISON: 08/01/[address] [facility]. 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 Coronary artery stents are visualized. Minimal linear scarring at the lung bases, unchanged. No pneumothorax. No definite pleural effusion no new opacities.OhioHealthStable chest. No acute disease. [employer] Workstation ID: [id number] VERIFICATIONon 90-98-8832CRZ and Rh group Nom (Bld)O PositiveOhioHealthABO and Rh group Nom (Bld)ABO/Rh VerificationOhioHealthPatient's ABO/Rh is verified. [facility] Metabolic Panelon 38-86-8532Zgmgi gap molar conc13 mmol/L10 - 20 mmol/LOhioHealthCalcium mass conc9.5 mg/dL8.4 - 10.2 mg/dLOhioHealthChloride molar eihf381 mmol/L98 - 108 mmol/LOhioHealthCreatinine mass conc0.68 mg/dLLow 0.8 - 1.3 mg/dLOhioHealthGFR/1.73 sq M predicted among non-blacks MDRD vol rate/area (S/P/Bld)The eGFR should be used for monitoring renal function only and not for medication dosing.New YorkHealthGFR/1.73 sq M.predicted CKD-EPI vol rate/area (S/P/Bld)91>=60 mL/min/1.73 k8PazqFqlrarVsknste mass conc98 mg/dL65 - 99 mg/dLOhioHealthHCO3 molar conc27 mmol/L21 - 32 mmol/LOhioHealthInterpretation and review of laboratory resultsAbnormalOhioHealthPotassium molar conc4.2 mmol/L3.5 - 5.1 mmol/LOhioHealthSodium molar ohzk031 mmol/L135 - 145 mmol/L OhioHealthUrea nitrogen mass conc9 mg/dL8 - 25 mg/dLOhioHealthUrea nitrogen/Creatinine mass ratio13.2 mg/mgOhioHealthCBCon 28-07-1116Taayulhbors distribution width Entitic volume (RBC)13.1 %11.6 - 14.8 %OhioHealthHematocrit Volume Fraction (Bld)30.7 %Low41 - 53 %OhioHealthHemoglobin mass conc (Bld)10.4 g/dLLow13.5 - 17.5 g/dLOhioHealthInterpretation and review of laboratory results AbnormalOhioHealthMCH Entitic mass (RBC)31.0 pg26 - 34 pgOhioHealthMCHC mass conc (RBC)33.9 g/dL31 - 37 g/dLOhioHealthComment on above:Cold Agglutinin presentMCV Entitic volume (RBC)91.6 fL80 - 100 fLOhioHealthNucleated RBC #/vol (Bld)0.00 10*3/uLOhioHealthNucleated RBC/100 WBC Ratio (Bld)0.0 %[facility] Platelet mean volume Entitic volume (Bld)9.9 fL9 - 15.5 fLOhioHealthPlatelets #/vol (Bld)209 10*3/uLOhioHealthRBC #/vol (Bld)3.35 10*6/uLLowOhioHealthWBC #/vol (Bld)6.34 10*3/uLOhioHealthWhile on heparinOhioHealthErythrocyte distribution width Entitic volume (RBC)12.6 %11.6 - 14.8 %OhioHealthHematocrit Volume Fraction (Bld)32.0 %Low41 - 53 %OhioHealthHemoglobin mass conc (Bld)10.7 g/dLLow13.5 - 17.5 g/dLOhioHealthComment on above:Peripheral smear reviewed manuallyInterpretation and review of laboratory resultsAbnormalOhioHealthMCH Entitic mass (RBC)29.9 pg26 - 34 pgOhioHealthMCHC mass conc (RBC)33.4 g/dL31 - 37 g/dLOhioHealthComment on above:Cold Agglutinin presentMCV Entitic volume (RBC)89.4 fL80 - 100 fLOhioHealthNucleated RBC #/vol (Bld)0.00 10*3/uLOhioHealth Nucleated RBC/100 WBC Ratio (Bld)0.0 %OhioHealthPlatelet mean volume Entitic volume (Bld)9.6 fL9 - 15.5 fLOhioHealthPlatelets #/vol (Bld)232 10*3/uL OhioHealthRBC #/vol (Bld)3.58 10*6/uLLowOhioHealthWBC #/vol (Bld)7.03 10*3/uL OhioHealthSaphenous vein mapping, limitedon 71-15-9153Bbfmrpbxi, Anton In Heartlab Xper Echopacs - 09/06/2018 11:52 AM EST Non-Invasive Vascular Patient: SHERRY Bazan [facility] Rec#: [id number] (Age): 1940(78y) Study Date: 09/06/2018 Room#: 3386 Type: Inpatient Sex: M Reading: Manuel Leonard MD, RPVI, RVT Referring: ARISTEO Assembler Body: Conrad Jeffers RDCS, RVT Procedure Info: [id number] Study Quality: Lower Vein Map: limited Study [...] 09/06/2018 11:49:41 by: Manuel Leonard MD, RPVI, RVTOhioHealthNon-Invasive Vascular Patient: SHERRY Bazan [facility] Rec#: [id number] (Age): 1940(78y) Study Date: 09/06/2018 Room#: 3386 Type: Inpatient Sex: M Reading: Manuel Leonard MD, NATANAEL, RVT Referring: ARISTEO Assembler Body: Conrad Jeffers RDCS, RVT Procedure Info: [id number] Study Quality: Lower Vein Map: limited Study [...] Leonard MD, RPVI, RVT OhioHealthType and Screenon 03-82-6847BRK and Rh group Nom (Bld)O Positive OhioWooster Community HospitalBlood group antibody screen QlNegativeOhioHealthSpecimen Expires 09/09/2018 23:59 ESTOhioHealthAPTTon 98-37-1567jSFF Coag time (Bld)Therapeutic range for APTT's is 68 - 104 secondsOhioHealthaPTT Coag time (Bld)59 [facility] CenterInterpretation and review of laboratory resultsAbnormalOhioHealthaPTT Coag time (Bld)50 sHighOhioHealthaPTT Coag time (Bld)Therapeutic range for APTT's is 68 - 104 secondsOhioHealthBasic Metabolic Panelon 91-52-6612Bpdhu gap molar conc14 mmol/L10 - 20 mmol/LOhioHealthCalcium mass conc9.3 mg/dL8.4 - 10.2 mg/dLOhioHealthChloride molar qidk825 mmol/L98 - 108 mmol/LOhioHealthCreatinine mass conc0.65 mg/dLLow0.8 - 1.3 mg/dLOhioHealthGFR/1.73 sq M predicted among non-blacks MDRD vol rate/area (S/P/Bld)The eGFR should be used for monitoring renal function only and not for medication dosing.New YorkHealthGFR/1.73 sq M.predicted CKD-EPI vol rate/area (S/P/Bld)93>=60 mL/min/1.73 w2HpmdXkrfmk Glucose mass conc91 mg/dL65 - 99 mg/dLOhioHealthHCO3 molar conc25 mmol/L21 - 32 mmol/LOhioHealthPotassium molar conc3.9 mmol/L3.5 - 5.1 mmol/LOhioHealthSodium molar yxjf136 mmol/L135 - 145 mmol/LOhioHealthUrea nitrogen mass conc6 mg/dLLow8 - 25 mg/dLOhioHealthUrea nitrogen/Creatinine mass ratio9.2 mg/mgLowOhioHealth CARDIAC CATHETERIZATIONon 48-86-7148Xsbpvbmzq, Rad In Heartlab Xper Echopacs - 09/05/2018 4:14 PM EST Patient Name: TRISTIN POWELL Date of : 1940 Procedure Date: 09/05/2018 Physician(s): Ben Hahn MD Cath #: [id number] Ref. Physician: PROCEDURE(S) PERFORMED: Ultrasound- guided vascular access Aortogram: Abdominal with runoff-bilateral Peripheral Angiography Lower Extremity Angiogram - Left Clinical History: Prior CABG: Yes Peripheral Arterial Disease: Yes, , with prior peripheral STAFF APPRAISER. Dyslipidemia: Yes Hypertension: Yes Pre-OP Diagnosis/Indication: Deann [...] and Closure device placed by - Dr. Bne Hahn PERIPHERAL FINDINGS: Common Iliac Artery Bilateral [...] amputation COMMENTS: No Complications ____ Equipment: Sheath(s) Acumen 5F 10CM PINNACLE SHEATH [employer] 6F 45CM .038 FLEXOR CHECKFLO ANSEL1 SHEATH Wire(s) [employer] .035 X 150CM FIXED J WIRE Catheter(s) Syndevrx 5F MP TEMPO AQUA CATHETER Other [employer] .035 CXI ANGLED SUPPORT CATHETERS SHER VASCULAR 6F PROGLIDE CLOSURE Peripheral Angiography: Access site: Femoral Right Retrograde arterial with ultrasound guidance Non Selective: Aorta with ilio-fem runoff Selective: Tibioperoneal artery, retrograde - left See Nursing Notes for further details Signed By Ben Hahn MD On 09/05/2018 3:50:45 PM Ben Hahn MD ____New YorkHealthPatient Name: TRISTIN POWELL Date of : 1940 Procedure Date: 09/05/2018 Physician(s): Ben Hahn MD Cath #: [id number] Ref. Physician: PROCEDURE(S) PERFORMED: Ultrasound- guided vascular access Aortogram: Abdominal with runoff-bilateral Peripheral Angiography Lower Extremity Angiogram - Left Clinical History: Prior CABG: Yes Peripheral Arterial Disease: Yes, , with prior peripheral STAFF APPRAISER. Dyslipidemia: Yes Hypertension: Yes Pre-OP Diagnosis/Indication: Marcus Hook Class/Limb Ischemia: 4 - Ischemic rest pain [...] amputation COMMENTS: No Complications ____ Equipment: Sheath(s) Acumen 5F 10CM PINNACLE SHEATH [employer] 6F 45CM .038 FLEXOR CHECKFLO ANSEL1 SHEATH Wire(s) [employer] .035 X 150CM FIXED J WIRE Catheter(s) Syndevrx 5F MP TEMPO AQUA CATHETER Other [employer] .035 CXI ANGLED SUPPORT CATHETERS SHER VASCULAR 6F PROGLIDE CLOSURE Peripheral Angiography: Access site: Femoral Right Retrograde arterial with ultrasound guidance Non Selective: Aorta with ilio-fem runoff Selective: Tibioperoneal artery, retrograde - left See Nursing Notes for further details Signed By Ben Hahn MD On 09/05/20183:50:45 PM Ben Hahn MD ____ OhioHealthCBCon 83-51-6869Vvfkgxwulyn distribution width Entitic volume (RBC) 12.8 %11.6 - 14.8 %OhioHealthHematocrit Volume Fraction (Bld)31.8 %Low41 - 53 % OhioHealthHemoglobin mass conc (Bld)10.7 g/dLLow13.5 - 17.5 g/dLOkioHealth Interpretation and review of laboratory resultsAbnoNorwalk Memorial Hospital Entitic mass (RBC)30.5 pg26 - 34 pgPeoples HospitalHC mass conc (RBC)33.6 g/dL31 - 37 g/dL [facility] Entitic volume (RBC)90.6 fL80 - 100 fLOhioHealthNucleated RBC #/vol (Bld)0.00 10*3/uLOhioHealthNucleated RBC/100 WBC Ratio (Bld)0.0 % [facility] mean volume Entitic volume (Bld)9.2 fL9 - 15.5 fLOhioHealth Platelets #/vol (Bld)224 10*3/uLOhioHealthRBC #/vol (Bld)3.51 10*6/uLLow OhioHealthWBC #/vol (Bld)5.56 10*3/uLOhioHealthECG 12-LEADon 97-00-1969Ulmtzq Rerd35DGJSrqkUczxtyH Djoh17wiieewfVrvhVwummfG-J Cebzlwxz938 msOhioHealthQ-T Elvhuvdl408 msOhioHealthQRS Shmycyra14 msOhioHealthQTC Calculation (Bezet)474 ms OhioHealthR Kbmj04fhrraifDthtIvfybkT Nzeu45zlmykwhLargRshnsmWkejzcjekms Rate88 BPMOhioHealthNormal sinus rhythm Nonspecific ST and T wave abnormality Abnormal ECG Confirmed by CHAYO TIDWELL MD ([id number]) on 09/05/2018 7:19:56 PMOhioHealth Atrial Qrhi30YFZZyebHkjivcJ Glhj3jizwwlbSaxwIlqrkaJ-I Vbmojpcx505 msOhioHealthQ- T Chbtibfh750 msOhioHealthQRS Diommwfo45 msOhioHealthQTC Calculation (Bezet)482 msOhioHealthR Yfte29hqoshrxDsncXcslwcA Bewa35fwmnzbuItyrKxykynFkmojmyflgf Rate94 BPMOhioHealthNormal sinus rhythm Prolonged QT Abnormal ECG Confirmed by CHAYO TIDWELL MD ([id number]) on 09/05/2018 6:55:30 PMOhioHealthOtheron 47-89-6022Ilpfbnwbadzxnm and review of laboratory resultsAbMercer County Community Hospital Ultrasound duplex arterial leg lefton 35-66-8794Vpo-Invasive Vascular Patient: SHERRY Jones Rec#: [id number] (Age): 1940(78y) Study Date: 09/05/2018 Room#: G93 Type: Inpatient Sex: M Reading: Pierce Moreau DO, RPVI Referring: LEVY Assembler Body: Rima Celestin RDCS, RVT Assembler Body: Deena Pelayo RDCS RVT Procedure Info: [id number] Study Quality: Lower Arterial Duplex: adequate Diagnosis: [...] PSV Name Value Units EIA 83.2 cm/sec HOUSETRAILER SERVICER 95.6 cm/sec Profunda 85.5 cm/sec SFA - prox -25 cm/sec SFA - mid -67.2 cm/sec SFA - dist 58.2 cm/sec Popliteal - dist 0 cm/sec STAFF APPRAISER 6.8 cm/sec Pre Stenosis #1 9.3 cm/sec Within Stenosis #1 67.2 cm/sec Distal Stenois #1 58.2 cm/sec Left Stent #1 Name Value Units Pre 58.2 cm/sec Orig/Prox 0 cm/sec Mid 0 cm/sec Dist 0 cm/sec Distal To 6.8 cm/sec Electronically signed at 09/05/2018 11:55:51 by: Pierce Moreau DO, RPVI [facility] - 09/05/2018 12:10 PM EST Non-Invasive Vascular Patient: SHERRY Bazan [facility] Rec#: [id number] (Age): 1940(78y) Study Date: 09/05/2018 Room#: G93 Type: Inpatient Sex: M Reading: Pierce Moreau DO, RPVI Referring: LEVY Assembler Body: Rima Celestin RDCS, RVT Assembler Body: Deena Pelayo RDCS RVT Procedure Info: [id number] Study Quality: Lower Arterial Duplex: adequate Diagnosis: [...] PSV Name Value Units EIA 83.2 cm/sec HOUSETRAILER SERVICER 95.6 cm/sec Profunda 85.5 cm/sec SFA - prox -25 cm/sec SFA - mid -67.2 cm/sec SFA - dist 58.2 cm/sec Popliteal - dist 0 cm/sec STAFF APPRAISER 6.8 cm/sec Pre Stenosis #1 9.3 cm/sec Within Stenosis #1 67.2 cm/sec Distal Stenois #1 58.2 cm/sec Left Stent #1 Name Value Units Pre 58.2 cm/sec Orig/Prox 0 cm/sec Mid 0 cm/sec Dist 0 cm/sec Distal To 6.8 cm/sec Electronically signed at 09/05/2018 11:55:51 by: Pierce Moreau DO, LUIZAOkioHealthAPTTon 41-11-5120zINM Coag time (Bld)59 sHighOhioHealthaPTT Coag time (Bld)Therapeutic range for APTT's is 68 - 104 secondsOhioHealth Interpretation and review of laboratory resultsAbnormalOhioHealthCBCon 13-75-6936Wttahvwdlip distribution width Entitic volume (RBC)12.8 %11.6 - 14.8 % OhioWooster Community HospitalHematocrit Volume Fraction (Bld)33.3 %Low41 - 53 %[facility] HospitalHemoglobin mass conc (Bld)11.2 g/dLLow13.5 - 17.5 g/dLOhioHealthInterpretation and review of laboratory resultsAbnormalOBrecksville VA / Crille HospitalMCH Entitic mass (RBC)30.2 pg26 - 34 pg [facility] HospitalMCHC mass conc (RBC)33.6 g/dL31 - 37 g/dLOhioHealthComment on above: Cold Agglutinin presentMCV Entitic volume (RBC)89.8 fL80 - 100 fLOhioHealth Nucleated RBC #/vol (Bld)0.00 10*3/uLOhioHealthNucleated RBC/100 WBC Ratio (Bld) 0.0 %OhioWooster Community HospitalPlatelet mean volume Entitic volume (Bld)10.1 fL9 - 15.5 fL OhioHealthPlatelets #/vol (Bld)222 10*3/uLOhioHealthComment on above:Peripheral smear reviewed manuallyRBC #/vol (Bld)3.71 10*6/uLLowOhioHealthWBC #/vol (Bld) 6.36 10*3/uLOhioHealthWhile on heparinOhioHealthOtheron 51-69-1367Dwlfh TubeHold for add-ons.OhioHealthComment on above:Auto resulted.XR COMPARISON IMPORTon 18-70-8656Ljmc order has been auto-finalized and does not contain a result. [facility] Vital Signs Date TimeVital SignValuePerforming DuiqrayzbYtaofuvm39-73-0788 10:Body rhyshf287 cmRevon Lovelace MD Work Phone: [facility] Yjchoirmhn61-36-7840 10:17-0400Body mass index (BMI) [Ratio]31.2 kg/z1ZnjgnFlash Lovelace MD Work Phone: [facility] HospitalRbwhoumwum46-46-0079 10:17-0400Body zazlph394.22 kgFlash Lovelace MD Work Phone: 1(680)[facility]-[address] [place], [place] [address]Hqegjjdfqx04-77-7340 10:17-0400Diastolic blood vccojyip69 mm[Hg]Flash Lovelace MD Work Phone: 1(419)[facility]-5120[facility] HospitalBrhtdgutwo39-07-9222 10:17-0400Heart rate84 /min Flash Lovelace MD Work Phone: 1(419)[facility] [place], [place] [address]Oqmigeradk21-42-7828 10:17-1502NnE2% (BldA) [Mass fraction]94 %Flash Lovelace MD Work Phone: 1(721)[facility] [place], [place] [address]Qtymjanhsu27-26-8029 10:17-0400Systolic blood mm[Hg]Flash Lovelace MD Work Phone: 1(079)[facility]-[address] [place], [place] [address]Jcrjykhxux72-62-8892 13:03-0400Body xsecpw135 cm Flash Lovelace MD Work Phone: [phone])[facility] [place], [place] [address]Cgjhotvrrx73-45-9644 13:03-0400Body mass index (BMI) [Ratio]31.2 kg/i8SpqzvFlash Lovelace MD Work Phone: 1(944)[facility] [place], [place] [address]Imnyaiceal63-45-6839 13:03-0400Body uruqzf367.22 kgFlash Lovelace MD Work Phone: 1(705)[facility]4486[facility] HospitalQxufgzshvj30-48-1462 13:03-0400Diastolic blood akfraxms34 mm[Hg]Flash Lovelace MD Work Phone: 1(168)[facility] [place], [place] [address]Kvlbfjsisw31-63-6491 13:03-0400Heart rate76 /min Flash Lovelace MD Work Phone: 1(419)[facility]-3855[facility] HospitalQxoixfrumh47-32-4863 13:03-9258RjT8% (BldA) [Mass fraction]94 %Flash Lovelace MD Work Phone: 1(011)[facility]-[address] [place], [place] [address]Vcnsrgeyty30-59-8058 13:03-0400Systolic blood edlmejjy947 mm[Hg]Flash Lovelace MD Work Phone: 1(419)[facility]-[address] [place], [place] [address]Idhllhdunf32-39-9405 07:29-0400Body temperature 97.5 [degF]Rafaela Garcia MD Work Phone: 1(428)[address] [place], [place] 2387209-16-2025 07:29-0400 Diastolic blood gotjuuez83 mm[Hg]Rafaela Garcia MD Work Phone: 1(440)[address] [place], [place] 2387209-16-2025 07:29-0400Heart rate72 /Kaitlynn Garcia MD Work Phone: 1(090)[address] [place], [place] 2387209-16-2025 07:29-0400 Respiratory rate18 /minRafaela Garcia MD Work Phone: 1(203)[address] [place], [place] 2387209-16-2025 07:29-5035DxT8% (BldA) [Mass fraction]96 %Rafaela Garcia MD Work Phone: 1(132)[address] [place], [place] 2387209-16-2025 07:29-0400Systolic blood kxybsrxn395 mm[Hg]Rafaela Garcia MD Work Phone: 1(433)[address] [place], [place] 2387209-12-2025 14:00-0400Body tirtts069 cmRafaela Garcia MD Work Phone: 1(530)[address] [place], [place] 2387209-12-2025 14:00-0400Body mass index (BMI) [Ratio]30.81 kg/p9GngikRafaela Garcia MD Work Phone: 1(112)[address] [place], [place] 2387209-12-2025 14:00-0400Body axbaej986.86 kgRafaela Garcia MD Work Phone: 1(067)[address] [place], [place] 2387209-11-2025 20:42-0400Heart rate84 /Riya Lovelace MD Work Phone: [facility]09-11-2025 20:42-0400 Respiratory rate20 /Riya Lovelace MD Work Phone: [facility]09-11-2025 20:00-0400 Body ntirohyjrir25 [degF]Flash Lovelace MD Work Phone: 1(419)[address] [place], [place] 0646709-11-2025 20:00-0400 Diastolic blood kcolvrrt03 mm[Hg]Flash Lovelace MD Work Phone: 1(492)[address] [place], [place] 0646709-11-2025 20:00-0400 SaO2% (BldA) [Mass fraction]94 %Flash Lovelace MD Work Phone: 1(599)[address] [place], [place] 0646709-11-2025 20:00-0400 Systolic blood vvweqbef541 mm[Hg]Flash Lovelace MD Work Phone: 1(419)[address] [place], [place] 0646709-10-2025 20:00-0400 Inhaled oxygen flow rate2 L/minFlash Lovelace MD Work Phone: 1(223)[address] [place], [place] 0646709-10-2025 06:00-0400 Body iozubl482 kgFlash Lovelace MD Work Phone: 1(883)[address] [place], [place] 0646709-09-2025 14:10-0400 Body gnobnv627.96 cmRevon Lovelace MD Work Phone: 1(444)[address] [place], [place] 0646709-09-2025 05:35-0400 Inhaled oxygen pzfsypoccehuy71 %Flash Lovelace MD Work Phone: 1(499)[address] [place], [place] 0646709-05-2025 16:00-0400 Diastolic blood vevzdpxn24 mm[Hg]Flash Lovelace MD Work Phone: 1(620)[address] [place], [place] 0646709-05-2025 16:00-0400 Heart rate75 /minFlash Lovelace MD Work Phone: 1(733)[address] [place], [place] 0646709-05-2025 16:00-0400 Respiratory rate22 /minFlash Lovelace MD Work Phone: 1(871)[address] [place], [place] 0646709-05-2025 16:00-0400 Systolic blood zyjimxdl188 mm[Hg]Flash Lovelace MD Work Phone: 1(917)[address] [place], [place] 0646709-05-2025 15:00-0400 SaO2% (BldA) [Mass fraction]95 %Flash Lovelace MD Work Phone: 1(419)[address] [place], [place] 0646709-05-2025 14:23-0400 Body .96 Varun Lovelace MD Work Phone: 1(669)[address] [place], [place] 0646709-05-2025 14:23-0400 Body enolghqdmis30.6 [degF]Flash Lovelace MD Work Phone: 1(610)[address] [place], [place] 0646709-05-2025 14:23-0400 Body .13 kgFlash Lovelace MD Work Phone: 1(398)[address] [place], [place] 0646709-05-2025 13:04-0400 Body tpbjza546 cmKaren Hemmer PA Work Phone: 1(147)[address] [place], [place] 9858609-05-2025 13:04-0400Body mass index (BMI) [Ratio]31.74 kg/v0Dqkhd Hemmer PA Work Phone: 1(062)[facility]-[address] [place], [place] [address]Rwsvcywbto72-50-6243 13:04-0400Body temperature 98.6 [degF]Zoë Hemmer PA Work Phone: 1(315)[facility]-[address] [place], [place] [address]Xdikuijiyp42-72-5169 13:04-0400Body .13 kgKaren Hemmer PA Work Phone: 1(986)[facility]-[address] [place], [place] [address]Rienujslsj61-13-2422 13:04-0400Diastolic blood jezmyvjb58 mm[Hg]Zoë Hemmer PA Work Phone: 1(636)[facility]-[address] [place], [place] [address]Olenzxstti19-10-7874 13:04-0400Heart rate81 /min Zoë Hemmer PA Work Phone: 1(495)[facility] [place], [place] [address]Smmkhnvthz52-75-9034 13:04-0400Respiratory rate20 /minKaren Hemmer PA Work Phone: 1(015)[facility]-7947[facility] HospitalJeltqxuxab64-16-4488 13:04-9214NsW5% (BldA) [Mass fraction]93 %Zoë Hemmer PA Work Phone: 1(242)[facility]-7251[facility] HospitalVqsdibymji78-27-7708 13:04-0400Systolic blood rsaojrcr264 mm[Hg]Zoë Hemmer PA Work Phone: 1(643)[facility]-[address] [place], [place] [address]Vbczfejdyc84-42-0385 14:36-0400Diastolic blood ezdmscrq50 mm[Hg]Mohsen Sarabia MD Work Phone: 1(205) [phone]ghvoe96-72-0717 14:36-0400Heart rate64 /minMohsen Sarabia MD Work Phone: 1(599) [phone]equho16-50-0304 14:36-0400Systolic blood pressure 162 mm[Hg]Mohsen Sarabia MD Work Phone: 1(500) [phone]dxqqx69-10-2137 14:30-0400Body cffbfi135 cmMohsen Sarabia MD Work Phone: 1(851) [phone]cgdwu46-97-1218 14:30-0400Body mass index (BMI) [Ratio]31.46 kg/m2Mohsen Sarabia MD Work Phone: 1(868) [phone]kkyug21-37-7399 14:30-0400Body nxniso099.13 kgMohsen Sarabia MD Work Phone: 1(858) [phone]ibjyn81-45-6650 14:30-0400Respiratory rate16 /min Mohsen Sarabia MD Work Phone: 1(896) [phone]jkaqq33-74-8390 14:30-9004DyP8% (BldA) [Mass fraction]97 %Mohsen Sarabia MD Work Phone: 1(462) [phone]nckgc82-49-4546 13:27-0400Body cmRevon Lovelace MD Work Phone: [facility] HospitalDzatvmvugv67-34-8260 13:27-0400Body mass index (BMI) [Ratio]30.94 kg/p8MgsmpFlash Lovelace MD Work Phone: NOSt. [facility] CenterEtskhunpre30-84-2580 13:27-0400Body eitdol622.32 kgFlash Lovelace MD Work Phone: NOSt. [facility] CenterKjdvpvdujz33-80-6124 13:27-0400Diastolic blood znmaxqay09 mm[Hg]Flash Lovelace MD Work Phone: NOSt. [facility] Medical CenterCijimgnlxm44-19-8764 13:27-0400Heart rate70 /min Flash Lovelace MD Work Phone: [place] [address]Axfxvnrvnj09-65-0295 13:27-6168HkD4% (BldA) [Mass fraction]96 %Flash Lovelace MD Work Phone: [place] [address]Foqypabhso28-14-5359 13:27-0400Systolic blood nuafkyeb306 mm[Hg]Flash Lovelace MD Work Phone: 1(365)[facility]-3137[facility] HospitalAoqxidnefb30-84-2260 11:29-0400Body cm Zoë Hemmer PA Work Phone: 1(356)[facility]-[address] [place], [place] [address]Ljuielekbj59-64-5326 11:29-0400Body mass index (BMI) [Ratio]31.35 kg/h3Vfrrq Hemmer PA Work Phone: 1(758)[facility]-[address] [place], [place] [address]Buexmdffat13-00-4337 11:29-0400Body bjhyuy417.77 kgKaren Hemmer PA Work Phone: 1(378)[facility]-[address] [address]Ovryxxnmfx32-52-4089 11:29-0400Diastolic blood ujqotsca88 mm[Hg]Zoë Hemmer PA Work Phone: 1(536)[facility]-[address] [place], [place] [address]Npgwifhfxi94-78-2753 11:29-0400Heart rate70 /min Zoë Hemmer PA Work Phone: 1(495)[facility]-[address] [address]Umqobrelyk06-19-2521 11:29-0400Respiratory rate18 /minKaren Hemmer PA Work Phone: [facility] HospitalAfnxcawqnm32-42-4501 11:29-6940UvY7% (BldA) [Mass fraction]98 %Zoë Hemmer PA Work Phone: 1(058)[facility]-[address] [place], [place] [address]Epblajeukq90-02-3226 11:29-0400Systolic blood mm[Hg]Zoë Hemmer PA Work Phone: [facility] HospitalPwvkvnumts19-81-1522 11:54-0400Body cm Mohsen Sarabia MD Work Phone: 1(968) [phone]ltenl37-79-6225 11:54-0400Body mass index (BMI) [Ratio]31.07 kg/m2Mohsen Sarabia MD Work Phone: 1(526) [phone]ucocb30-93-9530 11:54-0400Body qspuxj796.77 kgMohsen Sarabia MD Work Phone: 1(400) [phone]maudb42-69-7059 11:54-0400Diastolic blood qvkgyzda35 mm[Hg]Mohsen Sarabia MD Work Phone: 1(598) [phone]rukai86-00-1045 11:54-0400Heart rate68 /minMohsen Sarabia MD Work Phone: 1(617) [phone]cidvu95-10-4599 11:54-0400Respiratory rate12 /min Mohsen Sarabia MD Work Phone: 1(547) [phone]scwnz54-89-0354 11:54-0774ExH4% (BldA) [Mass fraction]92 %Mhosen Sarabia MD Work Phone: 1(137) [phone]vjbka13-29-2364 11:54-0400Systolic blood pressure 121 mm[Hg]Mohsen Sarabia MD Work Phone: 1(235)[phone]qchnj17-10-1204 13:24-0400Body lbjjai833 cmRstefann [place] DIAZ Work Phone: [facility] HospitalEtdhzckbqo64-91-7587 13:24-0400Body mass index (BMI) [Ratio]31.2 kg/m4FoptmFlash Lovelace MD Work Phone: [facility] HospitalShfndbzdxl84-88-2812 13:24-0400Body pcvoqz340.22 kgFlash Lovelace MD Work Phone: [facility] CenterOpczbyfrja89-54-2571 13:24-0400Diastolic blood ugavszsr98 mm[Hg]Flash Lovelace MD Work Phone: [facility] CenterBhkpqziwrc30-25-5462 13:24-0400Heart rate72 /min Flash Lovelace MD Work Phone: NOSt[facility] CenterAlyzjaueux38-79-2008 13:24-1519XrW4% (BldA) [Mass fraction]96 %Flash Lovelace MD Work Phone: NOSt[facility] CenterKsadrbtoha12-45-4835 13:24-0400Systolic blood uswwmncr054 mm[Hg]Flash Lovelace MD Work Phone: NOSt. [facility] CenterXoxwvyjnou33-66-6039 14:58-0400Body temperature 98.1 [degF]Uri Voss DO Work Phone: 1(794) [phone]cqsUsfeut76-99-0437 14:58-0400Diastolic blood ktyncrtt57 mm[Hg]Uri Chearz DO Work Phone: 1(429) [phone]1-683263JctqFffyvz03-57-2040 14:58-0400Heart rate88 /minUri Voss DO Work Phone: 1(909) [phone]8-218374CzzaOaxmkm32-16-1506 14:58-0400Respiratory rate15 /min Uri Voss DO Work Phone: 1(294) [phone]6-354287OpyqKdzcph62-19-2758 14:58-1666HmB2% (BldA) [Mass fraction]96 %Uri Voss DO Work Phone: 1(961) [phone]-991557SqdrWveswc68-78-2328 14:58-0400Systolic blood pressure 139 mm[Hg]Uri Voss DO Work Phone: 1(236) [phone]-397421VafzJsypqd68-86-4257 20:34-0400Body yykwar682 cmUri Voss DO Work Phone: 1(488) [phone]exwPofzre32-33-3479 20:34-0400Body mass index (BMI) [Ratio]31.19 kg/m2Uri Chearz DO Work Phone: 1(720) [phone]-428400WgrhZifxyx37-43-2221 20:34-0400Body sovlkz052.2 kgUri Chearz DO Work Phone: 1(349) [phone]2-659086TjbhBggxjd40-11-8245 09:55-0400Diastolic blood kozxmeej57 mm[Hg]Ken Johnson PEOPLESOFT PROGRAMMER Work Phone: 1(450) [phone]-232656ZiizAuxzaa96-35-2909 09:55-0400Systolic blood pressure 147 mm[Hg]Ken Johnson [employer]OP[employer]OFT PROGRAMMER Work Phone: 1(742) [phone]-742426PvucZpyskx29-44-1715 09:52-0400Body lezwrk305.4 cm Ken Johnson PEOPLESOFT PROGRAMMER Work Phone: 1(114) [phone]77DbbpFrezdn16-15-8792 09:52-0400Body mass index (BMI) [Ratio]32.98 kg/k2CxuaasKen Johnson CNP Work Phone: 1(200) [phone]-750266CydvXcbrpn79-69-6011 09:52-0400Body iwsxif428.4 kg Ken Johnson CNP Work Phone: 1(131) [phone]-224468VqhoTunlij37-27-4305 09:52-0400Heart rate81 /minElacristel Johnson CNP Work Phone: 1(375) [phone]-405308MutwPdvrvq80-06-9346 09:52-3303YmR5% (BldA) [Mass fraction]93 %Ken Johnson CNP Work Phone: 1(308) [phone]269OztnMkwcyt02-41-9428 18:50-0400Diastolic blood qdvdehnp66 mm[Hg]Flash Lovelace MD Work Phone: 1(111)524-[address] [place], [place] 7686607-16-2025 18:50-0400 Heart rate83 /minFlash Lovelace MD Work Phone: 1(680)516-[address] [place], [place] 7686607-16-2025 18:50-0400 Respiratory rate16 /minFlash Lovelace MD Work Phone: 1(063)467-[address] [place], [place] 7686607-16-2025 18:50-0400 SaO2% (BldA) [Mass fraction]95 %Flash Lovelace MD Work Phone: 1(598)713-[address] [place], [place] 7686607-16-2025 18:50-0400 Systolic blood vukiphlf224 mm[Hg]Flash Lovelace MD Work Phone: 1(498)790-[address] [place], [place] 7686607-16-2025 17:05-0400 Inhaled oxygen flow rate6 L/minFlash Lovelace MD Work Phone: 1(850)185-[address] [place], [place] 7686607-16-2025 13:05-0400 Body oxdbry610.96 Varun Lovelace MD Work Phone: 1(118)094-[address] [place], [place] 7686607-16-2025 13:05-0400 Body wilyauvksgw50.1 [degF]Flash Lovelace MD Work Phone: 1(299)[address]07-16-2025 13:05-0400 Body .39 kgFlash Lovelace MD Work Phone: 1(797)[address] [place], [place] 0646707-15-2025 11:34-0400 Body bkhicx670.96 cmRevon Lovelace MD Work Phone: 1(949)[address] [place], [place] 0646707-15-2025 11:34-0400 Body mass index (BMI) [Ratio]32.1 kg/h6UnjvsFlash Lovelace MD Work Phone: 1(599)[address] [place], [place] 0646707-15-2025 11:34-0400 Body [degF]Flash Lovelace MD Work Phone: 1(575)[address] [place], [place] 0646707-15-2025 11:34-0400 Body wcqcfi355.39 kgFlash Lovelace MD Work Phone: 1(176)[address] [place], [place] 0646707-15-2025 11:34-0400 Diastolic blood dfrwetvs35 mm[Hg]Flash Lovelace MD Work Phone: 1(723)[address] [place], [place] 0646707-15-2025 11:34-0400 Heart rate77 /minFlash Lovelace MD Work Phone: 1(763)[address] [place], [place] 0646707-15-2025 11:34-0400 SaO2% (BldA) [Mass fraction]98 %Flash Lovelace MD Work Phone: 1(509)[address] [place], [place] 0646707-15-2025 11:34-0400 Systolic blood aljkftxl685 mm[Hg]Flash Lovelace MD Work Phone: 1(091)[address] [place], [place] [address]646705-15-2025 10:33-0400 Body tubbwa752 cmBhaskar Wilson CRUDE TESTER Work Phone: [facility] HospitalLhzojbfxvh02-44-7820 10:33-0400Body mass index (BMI) [Ratio]32.23 kg/m2Bhaskar Wilson NP Work Phone: [facility] HospitalPkcegjrkcy78-88-1855 10:33-0400Body ddomcr684.85 kgBhaskar Wilson CRUDE TESTER Work Phone: NOSt. [facility] CenterCgudnbiahm28-53-8605 10:33-0400Diastolic blood vmgpeadg09 mm[Hg]Bhaskar Wilson CRUDE TESTER Work Phone: NOSt. [facility] CenterTbzevdeiuh49-04-2623 10:33-0400Heart rate83 /min Bhaskar Wilson CRUDE TESTER Work Phone: NOSt. [facility] CenterSgwmorgfft12-81-0974 10:33-0400Respiratory rate17 /minBhaskar Wilson CRUDE TESTER Work Phone: [facility] HospitalPgoqsfmqpr87-78-1284 10:33-9389QvL8% (BldA) [Mass fraction]96 %Bhaskar Wilson CRUDE TESTER Work Phone: NOSt. [facility] CenterEctaujdccp06-93-4872 10:33-0400Systolic blood itykwkvh950 mm[Hg]Bhaskar Wilson CRUDE TESTER Work Phone: NOSt. [facility] CenterKlearzrqxf45-23-1693 13:21-0500Body cm Flash Lovelace MD Work Phone: 1([phone] HospitalUviwlemdgi39-90-9910 13:21-0500Body mass index (BMI) [Ratio]33 kg/r8OivfdFlash Lovelace MD Work Phone: NOSt. [facility] CenterRzkcygkkkm71-82-9871 13:21-0500Body qmbigd348.57 kgFlash Lovelace MD Work Phone: NOSt. [facility] CenterRvrbtnitzn53-51-5349 13:21-0500Diastolic blood vkixwmad85 mm[Hg]Flash Lovelace MD Work Phone: NOSt. [facility] CenterSsulnhwocf18-68-8233 13:21-0500Heart rate73 /min Flash Lovelace MD Work Phone: NOSt. [facility] CenterYjirxfdsob38-59-9452 13:21-4206ViS4% (BldA) [Mass fraction]96 %Flash Lovelace MD Work Phone: NOSt. [facility] CenterAzgliztyzm41-24-4923 13:21-0500Systolic blood pdgtwbuo115 mm[Hg]Flash Lovelace MD Work Phone: NOSt. [facility] CenterBwtvxjficg04-82-6931 13:07-0400Body zactpn586 cm Zoë Hemmer PA Work Phone: [facility] HospitalKheijsbxcz59-46-3240 13:07-0400Body mass index (BMI) [Ratio]31.38 kg/v3Ufrpr Hemmer PA Work Phone: [facility] HospitalVgltvwsqzh42-98-8486 13:07-0400Body bnmqoo487.86 kgKaren Hemmer PA Work Phone: [facility] HospitalQidifiqiag08-35-7424 13:07-0400Diastolic blood igpaigsf07 mm[Hg]Zoë Hemmer PA Work Phone: [facility] HospitalKsfpmcblfp02-74-5620 13:07-0400Heart rate80 /min Zoë Hemmer PA Work Phone: [facility] HospitalSopvehihkt72-25-1208 13:07-0400Respiratory rate16 /minKaren Hemmer PA Work Phone: [facility] HospitalOovtrvjzyu40-35-5319 13:07-0870FjH4% (BldA) [Mass fraction]98 %Zoë Hemmer PA Work Phone: [facility] HospitalAahryhemkh77-37-4407 13:07-0400Systolic blood akjdcoqz003 mm[Hg]Zoë Hemmer PA Work Phone: [facility] HospitalIqsqpjkgak04-89-6705 09:25-0400Body oyyuvk000 cm Zoë Hemmer PA Work Phone: [facility] HospitalGkzftprmoq05-44-9701 09:25-0400Body mass index (BMI) [Ratio]31.23 kg/x9Wgsze Hemmer PA Work Phone: [facility] HospitalRiflgdfbuu37-81-4602 09:25-0400Body .31 kgKaren Hemmer PA Work Phone: [facility] HospitalIgukxuhidc11-42-9069 09:25-0400Diastolic blood jwhggyhk56 mm[Hg]Zoë Hemmer PA Work Phone: [facility] HospitalWxlbdelgal17-47-5415 09:25-0400Heart rate70 /min Zoë Hemmer PA Work Phone: [place] [address]Dkwxpxmkjx41-26-2328 09:25-0400Respiratory rate16 /minZoë BROWER Work Phone: [facility] HospitalVttewaxtvv13-01-8519 09:25-7812BaZ4% (BldA) [Mass fraction]96 %Zoëdana BROWER Work Phone: [facility] HospitalYdrqhxkwws87-42-4007 09:25-0400Systolic blood cjefshao938 mm[Hg]Zoëdana BROWRE Work Phone: [facility] HospitalLxzkybyfxy23-48-9834 13:07-0400Blood Pressure LocationJENNIFER JAY [facility]04-30-2024 13:07-0400Diastolic blood loniboda89 mm[Hg]BRENNA JAY [facility]04-30-2024 13:07-0400Heart rate68 /minJENNIFER JAY [facility]04-30-2024 13:07-0400Respiratory rate16 /minJENNIFER JAY [facility]04-30-2024 13:07-0400Systolic blood lqbzsinz064 mm[Hg]BRENNA JAY [facility]02-15-2024 15:13-0500Diastolic blood mm[Hg]MD Flash Lovelace Work Phone: [facility]02-15-2024 15:13-0500 Heart rate67 /minMD Vidales [place] Work Phone: [facility]02-15-2024 15:13-0500 Respiratory rate16 /minMD Vidales [place] Work Phone: [facility]02-15-2024 15:13-0500 SaO2% (BldA) [Mass fraction]96 %MD Flash Lovelace Work Phone: [facility]02-15-2024 15:13-0500 Systolic blood irykjamx756 mm[Hg]MD Flash Lovelace Work Phone: [facility]02-15-2024 08:43-0500 Body ccotbi193.96 cmMD Flash Lovelace Work Phone: [facility]02-15-2024 08:43-0500 Body mzlcoj682 kgMD Flash Lovelace Work Phone: [facility]02-06-2024 10:00-0500 Body sgrpym480.96 cmCristian Beaver Other [employer] Other 02-06-2024 10:00-0500Body mass index (BMI) [Ratio] 30.55 kg/g0XqhhufbCristian Beaver Other [employer] Other 02-06-2024 10:00-0500Body hvturfqhvex76.4 [degF] Cristian Beaver Other [employer] Other 02-06-2024 10:00-0500Body lenwch969.96 kgCristian Beaver Other [employer] Other 02-06-2024 10:00-0500Diastolic blood qgqxatqw22 mm[Hg] Cristian Beaver Other [employer] Other 02-06-2024 10:00-9436LnY4% (BldA) [Mass fraction]94 % Cristian Beaver Other [employer] Other 02-06-2024 10:00-0500Systolic blood oovnipcc071 mm[Hg] Cristian Beaver Other [employer] Other 12-14-2023 10:52-0500Body cmChad Melida COMMUNITY SERVICE OFFICER COORDINATOR-PEOPLESOFT PROGRAMMER [facility]12-14-2023 10:52-0500Body mass index (BMI) [Ratio]29.53 kg/m2Scar Ortega COMMUNITY SERVICE OFFICER COORDINATOR-PEOPLESOFT PROGRAMMER Work Phone: [facility]12-14-2023 10:52-0500Body weight 104.33 kgScar Melida COMMUNITY SERVICE OFFICER COORDINATOR-PEOPLESOFT PROGRAMMER Work [facility]12-13-2023 12:29-0500Diastolic blood lvmrfzar12 mm[Hg]Mohsen Sarabia MD Work Phone: 1(461) [phone]lIouheo68-75-1080 12:29-0500Systolic blood pressure 135 mm[Hg]Mohsen Sarabia MD Work Phone: 1(262) [phone]ofcKjulfo39-64-2038 12:27-0500Body yuxxhe941.4 cmMohsen Sarabia MD Work Phone: 1(893) [phone]ijsZgcqmx31-32-2130 12:27-0500Body mass index (BMI) [Ratio]30.34 kg/m2Mohsen Sarabia MD Work Phone: 1(771) [phone]YhyuKtjdkl59-10-9777 12:27-0500Body .33 kgMohsen Sarabia MD Work Phone: 1(191) [phone]xvzIvgsrv64-05-5456 12:27-0500Heart rate68 /minMohsen Sarabia MD Work Phone: 1(643) [phone]qivQzqyrn42-63-7479 12:27-0500Respiratory rate12 /min Mohsen Sarabia MD Work Phone: 1(660) [phone]ilsGfucxr34-65-2785 12:27-8964HfB1% (BldA) [Mass fraction]93 %Mohsen Sarabia MD Work Phone: 1(166) [phone]-152710KfhxBrkhfl40-08-1171 09:30-0400Body nhozmj957.96 cm Cristian Buehrer Other [employer] Other 10-16-2023 09:30-0400Body mass index (BMI) [Ratio] 30.55 kg/z1Llnigyi Buehrer Other [employer] Other 10-16-2023 09:30-0400Body nypfwlfjtur40.6 [degF] Cristian Buehrer Other [employer] Other 10-16-2023 09:30-0400Body umiigw456.96 kgJelanierey Buehrer Other [employer] Other 10-16-2023 09:30-0400Diastolic blood jbeyepri19 mm[Hg] Cristian Buehrer Other [employer] Other 10-16-2023 09:30-0509GcP0% (BldA) [Mass fraction]97 % Cristian Buehrer Other [employer] Other 10-16-2023 09:30-0400Systolic blood rfiijnch642 mm[Hg] Cristian Buehrer Other [employer] Other 09-26-2023 10:45-0400Body gzvnem116.96 cmJelanierey Buehrer Other [employer] Other 09-26-2023 10:45-0400Body mass index (BMI) [Ratio] 30.55 kg/j8Rjxbprh Buehrer Other [employer] Other 09-26-2023 10:45-0400Body wdextmgtubc07.8 [degF] Cristian Smithradha Other [employer] Other 09-26-2023 10:45-0400Body xlfikw725.96 kgJecamilla Beaver Other [facility] Other 09-26-2023 10:45-0400Diastolic blood qaedkjfd82 mm[Hg] Cristian Smithradha Other [employer] Other 09-26-2023 10:45-9525GrE7% (BldA) [Mass fraction]98 % Cristian Smithradha Other [employer] Other 09-26-2023 10:45-0400Systolic blood kmwinzzm698 mm[Hg] Cristian Beaver Other [employer] Other 03-20-2023 10:45-0400Body jtviet046.96 cmHaevn Malcolm Other [employer] Other 03-20-2023 10:45-0400Body mass index (BMI) [Ratio] 31.45 kg/w0ZuzjhcHaven Malcolm Other [employer] Other 03-20-2023 10:45-0400Body drcigheyzsr71.3 [degF]Haven Malcolm Other [employer] Other 03-20-2023 10:45-0400Body lomxkj747.13 kgHaven Malcolm Other [employer] Other 03-20-2023 10:45-0400Diastolic blood dvfiehyo41 mm[Hg] Haven Malcolm Other [facility] Other 03-20-2023 10:45-4526LrM9% (BldA) [Mass fraction]94 % Haven Malcolm Other [facility] Other 03-20-2023 10:45-0400Systolic blood vcmwbuqz516 mm[Hg] Haven Malcolm Other [facility] Other 03-14-2023 08:09-0400Body knwfymwvbco87.5 [degF] Ronnie Montoya MD Work Phone: 1(226)64423-9408TuqrBzwbhh06-639672XgjmYqrhhi87-52-5127 08:09-0400Diastolic blood mm[Hg]Ronnie Montoya MD Work Phone: 1(932)507-527-8734RueaHyeytd22-846082RawtPnzcyf90-58-2199 08:09-0400Heart rate81 /min Ronnie Montoya MD Work Phone: 1(127)53882-0034PmojWkzccd60-493357IqvhQlvkgq41-55-0427 08:09-0400Respiratory rate16 /min Ronnie Montoya MD Work Phone: 1(445)801[address]-0976DkwbDxhhjk35-176049GdmmLrjwzj66-99-5941 08:09-4259TvA8% (BldA) [Mass fraction]95 %Ronnie Montoya MD Work Phone: 1(839)[phone]bkbSwrwxf33-42-3784 08:09-0400Systolic blood pressure 122 mm[Hg]Ronnie Montoya MD Work Phone: 1(762)417-830-1735JrrdNjxxac90-836163QwgbRcpnau27-41-0558 13:29-0500Body qbuclx565.4 cm Ronnie Montoya MD Work Phone: 1(196)967-287-1563JxbdCmfzmc80-558417UzdaDnrdkk07-51-4593 13:29-0500Body mass index (BMI) [Ratio]32.98 kg/o9OgsnuqnRonnie Montoya MD Work Phone: 1(123) [phone]uhdJrvvyz35-79-0653 13:29-0500Body xoqwjs797.4 kg Ronnie Montoya MD Work Phone: 1(570) [phone]tetMfynle69-93-1809 21:30-0500Diastolic blood mm[Hg]Dalila Arreguin MD Work Phone: 1(247) [phone]RHE46-18-3168 21:30-0500Heart rate92 /minDalila Arreguin MD Work Phone: 1(995) [phone]EKN19-38-9725 21:30-0500Respiratory rate22 /min Dalila Arreguin MD Work Phone: 1(703) [phone]PK52-36-2762 21:30-8539NeD3% (BldA) [Mass fraction]90 %Dalila Arreguin MD Work Phone: [phone]9-64-7667 21:30-0500Systolic blood iluiklkw888 mm[Hg]Dalila Arreguin MD Work Phone: 1(499) [phone]BJUQ23-50-0816 20:00-0500Diastolic blood xchzyyyz29 mm[Hg]Dalila Arreguin MD Work Phone: 1(973) [phone]6220XYVCWVB19-68-3995 20:00-0500Heart rate90 /minDalila Arreguin MD Work Phone: [phone]5-18-9398 20:00-0500Respiratory rate7 /min Dalila Arreguin MD Work Phone: [phone]0-43-9514 20:00-7143OdI7% (BldA) [Mass fraction]89 %Dalila Arreguin MD Work Phone: 1(367) [phone]7754FKTZHPY00-13-7125 20:00-0500Systolic blood jyzvwfpp268 mm[Hg]Dalila Arreguin MD Work Phone: AOHCOFO69-338470MPBOCPK15-33-1902 19:34-0500Body wuedej267 cmPsherin Arreguin MD Work Phone: 1(544) [phone]9927LOHSZOK78-87-9722 19:34-0500Body mass index (BMI) [Ratio]32.1 kg/t3NkdgtDalila Arreguin MD Work Phone: [phone]6-31-0711 19:34-0500Body orstuy230.4 kgDalila Arreguin MD Work Phone: [phone]1-15-6853 19:06-0500Body xhfvasqtxtq49.4 [degF]Dalila Arreguin MD Work Phone: 1(201) [phone]5196YQTEOIM49-04-2470 10:48-0500Body ovbrxe524 cmChad Melida COMMUNITY SERVICE OFFICER COORDINATOR-PEOPLESOFT PROGRAMMER Work Phone: 1([phone]11-17-2022 10:48-0500Body mass index (BMI) [Ratio]32.35 kg/m2Scar Ortega COMMUNITY SERVICE OFFICER COORDINATOR-PEOPLESOFT PROGRAMMER Work Phone: 1(400)945-34[facility]11-17-2022 10:48-0500Body ugrkpggfjtz28.3 [degF]Scar Ortega COMMUNITY SERVICE OFFICER COORDINATOR-PEOPLESOFT PROGRAMMER Work Phone: 1(337)862-[address] [place], [place] [address]Rainbow11-17-2022 10:48-0500Body weight 114.31 kgScar Ortega COMMUNITY SERVICE OFFICER COORDINATOR-PEOPLESOFT PROGRAMMER [facility]-06-2022 13:00-0400Body height 187.96 cmCristian Beaver Other [employer] Other 09-06-2022 13:00-0400Body mass index (BMI) [Ratio] 32.09 kg/b1JmkmofcCristian Melendezreradha Other [employer] Other 09-06-2022 13:00-0400Body umemiwlgcjc16.2 [degF] Cristian Beaver Other [employer] Other 09-06-2022 13:00-0400Body .4 kgCristian Beaver Other [employer] Other 09-06-2022 13:00-0400Diastolic blood jqryzlsk02 mm[Hg] Cristian Norarer Other [facility] [employer] Other 09-06-2022 13:00-1561OkS5% (BldA) [Mass fraction]96 % Cristian Melendezrer Other [facility] [employer] Other 09-06-2022 13:00-0400Systolic blood uwanrcik080 mm[Hg] Cristian Melendezreradha Other [facility] Other 08-29-2022 16:45-0400Diastolic blood bsufclym31 mm[Hg] MD Flash Lovelace Work Phone: [facility]08-29-2022 16:45-0400 Heart rate67 /minMD Flash Valparaiso Work Phone: 1(142)285-[address] [place], [place] [address]08-29-2022 16:45-0400 Respiratory rate16 /minMD Flash Valparaiso Work Phone: [facility]08-29-2022 16:45-0400 SaO2% (BldA) [Mass fraction]97 %MD Flash Lovelace Work Phone: [facility]08-29-2022 16:45-0400 Systolic blood vlgavqjb020 mm[Hg]MD Flash Lovelace Work Phone: [facility]08-29-2022 11:24-0400 Body kipjpp582.96 cmMD Flash Lovelace Work Phone: [facility]08-29-2022 11:24-0400 Body vzijrn637.39 kgMD Flash Lovelace Work Phone: [facility]08-23-2022 10:45-0400 Body jivcnr826.96 cmJecamilla Beaver Other [facility] Other 08-23-2022 10:45-0400Body mass index (BMI) [Ratio] 32.09 kg/q8Nryxsptbhargav Beaver Other [facility] Other 08-23-2022 10:45-0400Body snqoduflhsx93.5 [degF] Cristian Beaver Other [facility] [employer] Other 08-23-2022 10:45-0400Body .4 kgBrendanbhargav Jonesaliyahwaldemar Other [facility] Other 08-23-2022 10:45-0400Diastolic blood pjhnkodv51 mm[Hg] Cristian Beaver Other [facility] [employer] Other 08-23-2022 10:45-0714KjV6% (BldA) [Mass fraction]97 % Cristian Beaver Other [facility] [employer] Other 08-23-2022 10:45-0400Systolic blood ambrrdit225 mm[Hg] Cristian Beaver Other [facility] Other 08-19-2022 17:00-0400Respiratory rate16 /Shameka Brock MD Work Phone: 1(593) [phone]kvujy65-80-3713 15:28-0400Body teplulzqpdh65.9 [degF]Carson Brock MD Work Phone: 1(238) [phone]lsvLcbins94-18-2005 15:28-0400Diastolic blood qvxuiglb30 mm[Hg]Carson Brock MD Work Phone: 1(671) [phone]qnHrtbsc29-38-6321 15:28-0400Heart rate65 /minCarson Brock MD Work Phone: 1(634) [phone]dstPmlthp99-15-1060 15:28-8170XtF5% (BldA) [Mass fraction]94 %Carson Brock MD Work Phone: 1(818) [phone]VhmtUfbywv39-24-5054 15:28-0400Systolic blood pressure 153 mm[Hg]Carson Brock MD Work Phone: 1(327) [phone]LidxImgbnc39-65-1770 19:35-0400Body Barak Brock MD Work Phone: 1(118) [phone]sveYliugy84-83-4562 19:35-0400Body mass index (BMI) [Ratio]31.71 kg/m2Carson Brock MD Work Phone: 1(842) [phone]tdyWicury21-00-9056 19:35-0400Body .04 kg Carson Brock MD Work Phone: 1(105) [phone]37FnxfEmbyne21-33-8894 09:43-0400Body wtogqb203 Ambreen Guerra MD Work Phone: 1(230) 677-2018658-3508CcgcFqgnyf97-763263YyooKqgjgq89-60-5419 09:43-0400Body mass index (BMI) [Ratio]32.21 kg/i1PsqkfAngela Guerra MD Work Phone: 1(843) [phone]nxoci84-62-5365 09:43-0400Body .1 [degF]Angela Guerra MD Work Phone: 1(739)[phone]16ZwuaWrhhtr98-71-0369 09:43-0400Body bazhyg916.81 kg Angela Guerra MD Work Phone: 1(313) [phone]171CazaIvnhtt97-67-4446 09:43-0400Diastolic blood msiacddi31 mm[Hg]Angela Guerra MD Work Phone: [facility]:blsavsu56-81-9716 09:43-0400Heart rate66 /minSnnamdi Guerra MD Work Phone: 1(690)[phone]20436HepdLdajro09-68-9557 09:43-0400Respiratory rate16 /min Angela Guerra MD Work Phone: 1(487) [phone]bjdEqwtlc75-00-5960 09:43-3956AkJ0% (BldA) [Mass fraction]95 %Angela Guerra MD Work Phone: 1(204) [phone]dtuJoybag35-68-7619 09:43-0400Systolic blood pressure 181 mm[Hg]Angela Guerra MD Work Phone: [facility]:zgipdeg48-89-1011 14:15-0400Respiratory rate16 /Yoly Mcguire MD Work Phone: MmwoJhrugf80-185139YipcJqllcp93-69-2104 07:53-0400Body fvekvptawcw01.9 [degF]Mikey Mcguire MD Work Phone: LzpoRqweuz94-798845BebzRysiqw99-79-0091 07:53-0400Diastolic blood iirnxnpw47 mm[Hg]Mikey Mcguire MD Work Phone: WtujJitueo65-425659NzbbTpkgph15-29-3625 07:53-0400Heart rate66 /Yoly Mcguire MD Work Phone: QwpiDochfd47-032624HuliZknkpi01-92-2490 07:53-8410WbI9% (BldA) [Mass fraction]91 %Mikey Mcguire MD Work Phone: MafgCzrbqe49-524737JtdeKtlvtu00-23-1864 07:53-0400Systolic blood pressure 133 mm[Hg]Mikey Mcguire MD Work Phone: OqfcXawpgn67-976994FylfKgijsw80-28-2125 20:43-0400Body auapwa883 Malika Mcguire MD Work Phone: UdvwNkedln79-018922StetKrywgf47-08-0900 20:43-0400Body mass index (BMI) [Ratio]32.1 kg/i1YajrqeMikey Mcguire MD Work Phone: DatyXhkxgn99-738491VefqNrncbq13-96-0439 20:43-0400Body .4 kg Mikey Mcguire MD Work Phone: NidkGtlxih01-099463ZnocVlpgqm11-53-9412 09:04-0400Body nyqczj318 Uzma Silvestre MD Work Phone: 1(056)094-[address] [place], [place] 2866705-18-2022 09:04-0400Body mass index (BMI) [Ratio]32.38 kg/k4EkbcrDashawn Silvestre MD Work Phone: 6(108)863-[address] [place], [place] 2866705-18-2022 09:04-0400Body efhckfymctm87.11 [degF]Dashawn Silvestre MD Work Phone: 5(961)021-[address] [place], [place] 2866705-18-2022 09:04-0400Body weight 114.4 kgDashawn Silvestre MD Work Phone: 1(806)[address]03-30-2022 09:44-0400Body lzwxty873 cmSlola Silvestre MD Work Phone: 2(662)908-[address] [place], [place] 2866703-30-2022 09:44-0400Body mass index (BMI) [Ratio]31.07 kg/z1EnhafDashawn Silvestre MD Work Phone: 0(523)917-[address] [place], [place] 2866703-30-2022 09:44-0400Body weight 109.77 kgDashawn Silvestre MD Work Phone: 0(935)399-[address] [place], [place] 2866702-12-2020 14:17-0500BMI (Body Mass Index)31.46 kg/l5WuojdozSelect Medical Specialty Hospital - TrumbullIequBadpSfiaum49-34-5305 14:17-0500Body .13 kgAbiFisher-Titus Medical CenterUkpyVrkePxrben44-53-3879 14:17-0500BP Stvaiwpru56 mm[Hg][facility]02-12-2020 14:17-0500BP Juobvlqe254 mm[Hg][facility] 10-09-2019 14:17-1174Qqozth638 cmAbiFisher-Titus Medical CenterAokjSkoxRnbfcg85-66-8615 14:17-0500 Pulse (Heart Rate)71 /minAbiFisher-Titus Medical CenterYlwmCnpcPxoyzt03-90-7264 14:17-0500Pulse Nqvajzpt34 %[facility] TrumbullLtybTahsNkisvo40-00-1888 09:57-0400BMI (Body Mass Index) 27.99 kg/m2Mohsen KeyhuvOigoUuldjh72-81-9449 09:57-0400Body ppwahv56.88 kgJoy ZvwoosOvulKfgmfv78-62-5974 09:57-0400BP Eifukkuwz58 mm[Hg]Mohsen [facility] 03-13-2019 09:57-0400BP Uhfqlocf448 mm[Hg]Mohsen XnhkpuNwgvFcvqyk28-69-5431 09:57-8587Tjlgez567 Dante DdogxuWsnfGunlif52-16-9502 09:57-0400Pulse (Heart Rate)72 /minTogus VA Medical CenterXsdlpgMglvHthwku90-99-6578 09:57-0400Pulse Tordjlxg43 %Mohsen WvjpekXjvaQqvlvd88-71-7505 09:57-0400Respiratory Rate16 /[facility] 15:07-0500Body Owshpsototw19.39 [degF][facility] 10-25-2018 15:07-0500BP Bnazhwmcd74 mm[Hg][facility] HospitalJlysUfomZbxflu64-99-7746 15:07-0500BP Codistii436 mm[Hg][facility] HospitalPbwnDmyeMhclbx36-31-9939 15:07-0500Pulse (Heart Rate)96 /minNaval HospitalCcmyEqizQyzqyz33-51-5131 15:07-0500Respiratory Rate16 /minNaval HospitalZwvxIcrdQvivem23-14-8970 15:29-0500Body Nacrotfaujw96.4 [degF] [facility] HospitalXmlmTptnRtkjus83-04-5008 15:29-0500BP Takenawun54 mm[Hg][facility]02-21-2019 15:29-0500BP Xwwpmltg836 mm[Hg][facility] 10-18-2018 15:29-0500Pulse (Heart Rate)86 /minNaval HospitalSlkoGmymUztgmb65-19-7022 15:29-0500Respiratory Rate16 /[facility]02-15-2019 18:41-0500BP Ugvmlvjss05 mm[Hg][facility] HospitalIsiyMbpgIqcvhb39-54-3572 18:41-0500BP Gvlkepht618 mm[Hg][facility] HospitalLlwcBytyFviqnz99-85-5041 12:17-0500Body Dabvjhnxttm67.2 [degF] [facility] HospitalNcvqZvifDsblvw38-88-2633 12:17-0500Pulse (Heart Rate)72 /[facility]2019 12:17-0500Pulse Xwyhzusu97 %[facility] 10-12-2018 12:17-0500Respiratory Rate14 /minNaval HospitalRegfHsuiCiubco77-32-7272 06:20-0500BMI (Body Mass Index)27.99 kg/x0TpqztbuNaval HospitalOtzsAjnwUkdwix15-63-4184 06:20-1363Wktfth810 [facility]02-11-2019 06:20-5740Hidvha81.88 kg [facility] HospitalCuchVazkVcgswi72-62-5810 13:08-0500Body Llxtfhaalzd18.2 [degF][facility] HospitalYrmoVzbeGxneyl82-19-1776 13:08-0500BP Jglohwpyj98 mm[Hg][facility] 10-04-2018 13:08-0500BP Mmrkevrf165 mm[Hg][facility] HospitalDjhwVrzlQobmui87-58-4742 13:08-0500Pulse (Heart Rate)87 /minNaval HospitalKklgExkqYzjeyq71-46-9812 13:08-0500 Respiratory Rate16 /[facility]01-24-2019 14:15-0500BMI (Body Mass Index)30.3 kg/m8LwuvdedNaval HospitalUztvCbshGibaco89-36-9073 14:15-0500Body Fsffnfeccgy10.9 [degF][facility] HospitalIdfdPseeKkkqcz83-40-4499 14:15-0500BP Jtlrbelay49 mm[Hg][facility] HospitalHxnyKgflDszhqe53-83-3885 14:15-0500BP Wmlnrxih823 mm[Hg][facility] 09-20-2018 14:15-8847Yfiexg513 [facility]01-24-2019 14:15-0500 Pulse (Heart Rate)92 /minNaval HospitalWobrBqybFjbxps52-52-7699 14:15-0500Respiratory Rate16 /minNaval HospitalRiedAxyeMhfleq85-18-8242 14:15-6057Wgjmjr196.05 kgNaval HospitalGfgrKvfcBcowhh07-89-6391 10:30-0500Respiratory Rate20 /minNicole VeOhioHealthPsrhLrerbh29-63-4387 07:36-0500Body Wqtfzyygbst61.3 [degF][facility] ZhdhUzeala00-84-3171 07:36-0500BP Cssyvsgoy60 mm[Hg][facility] 09-13-2018 07:36-0500BP Unbgwivw692 mm[Hg]Tiana DcekgcowlLsuqKmzffw87-79-1801 07:36-0500Pulse (Heart Rate)103 /minNicole SdvnqifyzOohwIxgvac33-72-1313 07:36-0500Pulse Fjsfqksb74 %Tiana RxzxdchwhCvdaGlaxnt73-87-4456 19:090500BMI (Body Mass Index)31.58 kg/m2Oeacii KfpxktqhkZcesYubjhj01-11-6713 19:0500 Noqmav131 cmRed Wing Hospital And Clinicole RuzvnoondBksuMhjyhe04-73-7194 19:8344Qofrqg701.58 kgRed Wing Hospital And Clinicole [facility] Encounters Encounter DateEncounter TypeCare ProviderFacilityStart: 06-18-2025 End: 71-22-4678Rlijnnfpg Result EncounterGeneric External Data ProviderNOMS External Department UnsolicitedStart: 06-18-2025 End: 99-55-6799Pwfroevej Result EncounterGeneric External Data ProviderNOMS External Department UnsolicitedStart: 06-17-2025 End: 24-86-5467zbvymyawqkJHJBJ M ALDFairfield Medical Centertart: 06-10-2025 End: 04-16-6778Mmbqho Kevan Lovelace MD Work Phone: NOMS [facility] MedinceStart: 06-10-2025 End: 04-89-0030Vikitu Kevan Lovelace MD Work Phone: NOYH [facility] MedinceStart: 06-10-2025 End: 24-15-6484Eyaav of hemosiderin, Vini Lovelace MD Work Phone: NOZG HealthcareStart: 06-10-2025 End: 89-31-4420Pgjqmms encounter Jose Lovelace MD Work Phone: NOPF [facility] MedinceComment on above:Routine general medical examination at health care facility (Primary Dx); Screening for lipid disorders; Medicare annual wellness visit, subsequent; 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HCC); Encounter for immunization; Opioid dependence, uncomplicated (HCC); Acute eczematoid otitis externa of right earStart: 06-10-2025 End: 10-76-2441cyrruoyvuxWNOZB M ALDANot AvailableStart: 06-06-2025 End: 60-43-4964Ntkeep Song Garcia RNRiverside Vascular SurgeonsComment on above:PVD (peripheral vascular disease) (Primary Dx)Start: 06-05-2025 End: 72-64-9357djjqxsazkhIIOAmesbury Health Centertart: 06-02-2025 End: 26-99-9129Qdfkuu Song Garcia RNRiverside Vascular SurgeonsComment on above:PVD (peripheral vascular disease) (Primary Dx)Start: 05-29-2025 End: 27-47-7209PrdvzaTzzpf M Alda MD Work Phone: noms [facility] MedinceComment on above:PVD (peripheral vascular disease) with claudicationStart: 05-26-2025 End: 92-77-9672Mlsvnzmvk encounterErimacho Saab LPN Work Phone: noms POPULATION HEALTHStart: 05-20-2025 End: 69-64-2819Xjrwwb outpatient visit 25 minutesFlash Lovelace MD Work Phone: noms [facility] MedinceComment on above:Pneumonia due to infectious organism, unspecified laterality, unspecified part of lung (Primary Dx)Start: 05-20-2025 End: 87-18-0023twyqeycwdjJZTSS M ALDANot AvailableStart: 05-14-2025 End: 27-24-4379ngfcdtiaqfCwxdq Hall LPN Work Phone: noms POPULATION HEALTHStart: 05-09-2025 End: 65-29-9432Aypcjbnyll and management of inpatientKatlaureano Gerard MD Work Phone: r8EComment on above:HemoptysisStart: 05-04-2025 End: 62-78-7831Qnuhbthbcm and management of inpatientMichael Frings [facility]art: 20-17-2447Miq-patient / Non-visitYuhann Dayday Martines MD-[facility] Work Phone: Start: 56-98-4081Cnhbqpieik and management of inpatientObaydhi Veda Arteaga MD-[facility] Work Phone: Start: 19-91-8494jqfpjmsltwr encounterFlash Lovelace MD Work Phone: [facility] Work Phone: Start: 05-02-2025 End: 59-15-0792Vlgurs Lynnette King PA Work Phone: noms [facility] MedinceStart: 05-02-2025 End: 29-58-2332Ceqrfkleyla Arteaga Hemmer PA Work Phone: NOMS [facility] MedinceStart: 05-02-2025 End: 39-29-6088Dujnhu outpatient visit 15 minutesZoë King PA Work Phone: NOMS [facility] MedinceComment on above:Hemoptysis (Primary Dx); RhonchiStart: 05-02-2025 End: 84-21-9571ggjjqjuwarKEOPO M HEMMERNot AvailableStart: 04-30-2025 End: 71-95-1948Fzywoywhy Result EncounterGeneric External Data ProviderNOMS External Department UnsolicitedStart: 04-30-2025 End: 55-46-5277Upsjjxjra Result EncounterGeneric External Data ProviderNOMS External Department UnsolicitedStart: 04-29-2025 End: 65-56-3586Zzriyrlvk encounterSjairo Grayson Family MedinceComment on above:Medication Question (Has a terrible cold and runny nose wanted to know if you could zuly in a z-packfor him.)Benign essential hypertensionStart: 04-23-2025 End: 10-19-9551Btzlvp outpatient visit 25 minutesMohsen Sarabia MD Work Phone: Ririverside [facility] Vascular SurgeonsComment on above:Critical lower limb ischemia (HCC) (Primary Dx)Start: 04-23-2025 End: 89-52-8656beigzurqweBTG [facility] WALKERCleveland [facility] AmbulatoryStart: 04-23-2025 End: 59-59-0063kvmacqkvjhKUA [facility] WALKERGuernsey Memorial Hospital HospitalStart: 04-21-2025 End: 29-87-5375Uhfhlkkto encounterElaine Saab LPN Work Phone: noms POPULATION HEALTHStart: 04-16-2025 End: 70-80-3893Fwjzocdqm Result EncounterGeneric External Data ProviderNOMS External Department UnsolicitedStart: 04-16-2025 End: 48-23-5942Pqbxbwzjd Result EncounterGeneric External Data ProviderNOMS External Department UnsolicitedStart: 04-15-2025 End: 20-97-2613Uwkdzztfv Result EncounterGeneric External Data ProviderNOMS External Department UnsolicitedStart: 04-15-2025 End: 23-58-3297Advvxqlwn Result EncounterGeneric External Data ProviderNOMS External Department UnsolicitedStart: 04-15-2025 End: 29-18-0060qfjxakawhaHEXML M ALDANot AvailableStart: 04-14-2025 End: 23-26-5168Sfphow outpatient visit 25 minutesFlash Lovelace MD Work Phone: noms [facility] MedinceComment on above:PVD (peripheral vascular disease) with claudication (Primary Dx); Ischemic toe ulcer, right, with 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); Osteomyelitis of right foot, unspecified type (HCC)Start: 04-14-2025 End: 13-53-6282ctkhrbvesgNCMKL M ALDANot AvailableStart: 04-09-2025 End: 47-69-8595Njdjjhlgg Roxana BROWER Work Phone: noms [facility] MedinceStart: 04-08-2025 End: 07-00-3795Crccxj flowsheetZoë BROWER Work Phone: noms [facility] MedinceStart: 04-08-2025 End: 54-55-6914Rbxodj flowsheetZoë BROWER Work Phone: noms [facility] MedinceStart: 04-08-2025 End: 76-52-8783Ygisrggl Result EncounterZoë BROWER Work Phone: noms External Department UnsolicitedStart: 04-08-2025 End: 45-03-0216Draqdt outpatient visit 25 minutesZoë BROWER Work Phone: noms [facility] MedinceComment on above:PVD (peripheral vascular disease) with claudication (Primary Dx); Acquired absence of left foot (HCC); Ischemic toe ulcer, right, with 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)Start: 04-08-2025 End: 44-03-4906lpbfpbyawjBXQEM M HEMMERNot AvailableStart: 04-02-2025 End: 10-63-6078Axpwgl outpatient visit 15 minutesMohsen Sarabia MD Work Phone: [facility] Vascular SurgeonsComment on above:Critical lower limb ischemia (HCC) (Primary Dx)Start: 04-02-2025 End: 92-15-4968colygcuucrWBLMaria [facility] Health AmbulatoryStart: 03-31-2025 End: 23-36-4723Zbifsy outpatient visit 25 minutesFlash Lovelace MD Work Phone: noms [facility] MedinceComment on above:PVD (peripheral vascular disease) with claudication; History of prostate cancer; Urinary hesitancyStart: 03-31-2025 End: 13-69-3414euuctwfubyKBUPY M ALDANot AvailableStart: 73-54-0320Lcdqrankab and management of inpatientJeffrey BuehrerFacility:[facility] Hospitaltart: 03-18-2025 End: 45-78-4656Lfxvfeexcamom procedureBrenna Galloway [facility] Heart & Vascular PhysiciansStart: 03-14-2025 End: 40-96-3167Iqmbnybxrjlmq procedureLudivina Garcia [facility] Surgeons Start: 03-14-2025 End: 17-54-7008Nihssubtkg and management of inpatientErika Daiana Macdonald MD Work Phone: [facility] Start: 03-14-2025 End: 92-05-9913Ivntdh follow up visit related to original Caron Sarabia MD Work Phone: [facility] Heart, Lung & Vascular SurgeonsComment on above:Acute pain of right lower extremity (Primary Dx)Start: 03-14-2025 End: 95-24-4286wckxcnjpwrNPWKin SARABIACleveland Clinic [facility] AmbulatoryStart: 03-14-2025 End: 98-69-4035whzhgayfzuSZZGN M ALDARiTrinity Health System [facility] HospitalStart: 03-13-2025 End: 44-91-3543Qalilipmqslun procedureEvdeanna Garcia [facility] Card[facility] Non-Invasive LabStart: 03-12-2025 End: 73-03-0914Umomjigjo to same day surgery centerCristian Beaver MD-[facility] HospitalStart: 03-12-2025 End: 11-24-5697vjapmmdowwPjzhr M Alda MD Work Phone: [facility] Work Phone: Start: 62-72-2938Mqs-patient / Non-visitMattharrison Negron MD-[facility] Work Phone: Start: 03-11-2025 End: 51-89-0336woigckbncwWvubr M Alda MD Work Phone: [facility] Work Phone: Start: 03-11-2025 End: 39-99-0919Eeurzwg encounter procedureCristian Beaver MD-[facility] Work Phone: Start: 02-13-2025 End: 39-08-5782OxydxgTmmbj M Alda MD Work Phone: NOMS CI FMComment on above:Primary insomnia; Other chronic pain; Lumbosacral spondylosis without myelopathyStart: 01-09-2025 End: 18-69-1135Hdaibs Jeancarlos Wilson CRUDE TESTER Work Phone: NOMS CI FMStart: 01-09-2025 End: 62-03-7523Xnwqqz Jeancarlos Wilson CRUDE TESTER Work Phone: NOMS CI FMStart: 01-09-2025 End: 64-02-9949Gpztmm outpatient visit 25 minutesBhaskar Wilson CRUDE TESTER Work Phone: NOMS CI FMComment on above:Dysuria (Primary Dx); History of prostate cancer; Urinary hesitancy; Right-sided low back pain without sciatica, unspecified chronicityStart: 01-09-2025 End: 19-03-9155bvstndfjbmQXB C MILLERNot AvailableStart: 01-02-2025 End: 82-33-5277JimrcxXbyfa M Alda MD Work Phone: NOMS CI FMComment on above:Other chronic pain; Lumbosacral spondylosis without myelopathyStart: 88-88-2916sbhfovjvypXAPEVN [facility] Centertart: 11-26-2024 End: 42-24-9087GbyeviNxqgk M Alda MD Work Phone: NOMS CI FMComment on above:Other chronic pain (Primary Dx); Sinusitis, unspecified chronicity, unspecified location; Lumbosacral spondylosis without myelopathyStart: 11-25-2024 End: 22-18-7802fnrqsfbdqbFkwxu Hall [facility] POPULATION HEALTHStart: 11-04-2024 End: 68-23-9642iseswzsohwMGGZF M ALDANot AvailableStart: 10-18-2024 End: 84-23-6450FlkdwpDfmgmpu [facility] CI FMComment on above:Lumbosacral spondylosis without myelopathyStart: 26-86-0081xspwfqjjixBQSSaint Joseph Hospital AmbulatoryStart: 09-23-2024 End: 11-75-8174Qawuyhyvkddvt Saima Garcia [facility] Heart, Lung & Vascular SurgeonsStart: 09-12-2024 End: 55-56-8831KctknyFxbra M Alda MD Work Phone: NOMS CI FMComment on above:Lumbosacral spondylosis without myelopathyStart: 08-20-2024 End: 50-40-6447Bxopbdnapvrbv Saima Garcia [facility] Heart, Lung & Vascular SurgeonsStart: 08-12-2024 End: 59-70-9744Jyfepm outpatient visit 25 minutesFlash Lovelace MD Work Phone: NOMS CI FMComment on above:Other chronic pain (Primary Dx); Primary insomnia; Seasonal allergic rhinitis due to pollen; Encounter for vaccination; Phantom limb pain (CMS/HCC)Start: 08-12-2024 End: 35-21-0588rmvceoazxgOMHPC M ALDANot AvailableStart: 08-06-2024 End: 27-13-6070JlrizvIbtjt M Alda MD Work Phone: noMS CI FMComment on above:Lumbosacral spondylosis without myelopathyStart: 08-01-2024 End: 17-25-4397Clgocf OnlyLudivina Garcia [facility] Heart, Lung & Vascular SurgeonsComment on above:PVD (peripheral vascular disease) (HCC) (Primary Dx) Start: 07-29-2024 End: 18-28-4273phavhwavheXsukzbv BuehrerFacility:[facility] Hospitaltart: 07-22-2024 End: 67-06-6639exwgafygggSPLQWTWilson Street Hospital Start: 07-11-2024 End: 26-24-6952Vugezfpag Result EncounterGeneric External Data ProviderNOMS External Department UnsolicitedStart: 07-11-2024 End: 35-80-1490Hrvinujml Result EncounterGeneric External Data ProviderNOMS External Department UnsolicitedStart: 07-10-2024 End: 23-76-5054hwgepebgvnNAESDV [facility] Start: 07-05-2024 End: 71-96-6866EdkqcmQktqv M Alda MD Work Phone: NOMS CI FMComment on above:Lumbosacral spondylosis without myelopathyStart: 07-03-2024 End: 24-83-1274Cucdszyhv Result EncounterGeneric External Data ProviderNOMS External Department UnsolicitedStart: 07-03-2024 End: 64-56-9620Ccfayovbm Result EncounterGeneric External Data ProviderNOMS External Department UnsolicitedStart: 06-17-2024 End: 42-38-9321Rnmbojfux Kavya Lovelace MD Work Phone: NOMS CI FMStart: 05-28-2024 End: 63-91-4227qzjpxmwnegDMJOEHYFulton County Health Centertart: 05-21-2024 End: 10-53-3956Vilnsv Lynnette BROWER Work Phone: NOMS CI FMStart: 05-21-2024 End: 42-23-0942Ctdgtr Lynnette BROWER Work Phone: NOMS CI FMStart: 05-21-2024 End: 32-37-4043Sjyyao outpatient visit 25 minutesKardana BROWER Work Phone: NOMS CI FMComment on above:Chest pain in adult (Primary Dx); Lumbosacral spondylosis without myelopathy; 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CMS/HCC); Seasonal allergic rhinitis due to pollenStart: 05-14-2024 End: 67-67-0521Tgjazdnml Result EncounterGeneric External Data ProviderNOMS External Department UnsolicitedStart: 05-14-2024 End: 41-82-6982Vkwthfjnj Result EncounterGeneric External Data ProviderNOMS External Department UnsolicitedStart: 05-13-2024 End: 54-31-6163Xdgpicpcj Result EncounterGeneric External Data ProviderNOMS External Department UnsolicitedStart: 05-13-2024 End: 33-92-6337Qokuihxyn Result EncounterGeneric External Data ProviderNOMS External Department UnsolicitedStart: 05-12-2024 End: 33-06-6448xhnvnghqnsFOWUU M ALDAMerGriffin Hospitaltart: 04-26-2024 End: 24-35-2333Bygwbl flowsKarma BROWER Work Phone: NOMS CI FMStart: 04-26-2024 End: 71-22-6043Kdfcii flowsKarma BROWER Work Phone: NOMS CI FMStart: 04-26-2024 End: 22-48-1423Sjdtbcr encounter Cherrie BROWER Work Phone: NOMS CI [...] of cardiac valve disease unspecified; Atherosclerosis of [place] coronary artery of [place] heart without angina pectoris (CMS/HCC); Benign essential [...] amputation of left foot (CMS/HCC); Atherosclerosis of [place] arteries of extremities with rest pain, unspecified extremity (CMS/HCC); Pulmonary hypertension, unspecified (CMS/HCC)Start: 04-24-2024 End: 45-57-8860igdpfzzlmfXFKHZUC [facility] Hospitaltart: 12-26-2023 End: 23-64-8270gwcurrmjurJGTPWDGL E PERRYFacility:EU BellueStart: 12-26-2023 End: 92-41-7247Unupebd encounter procedureJENNIFER E JAY [facility] start: 10-17-2023 End: 95-06-6644eniebranilVJ Flash Arteaga [place] Work Phone: [facility] Work Phone: Start: 10-17-2023 End: 76-01-4857Zriborh encounter procedureMD Flash Moraa Work Phone: [facility]-Electrodiagnostics Work Phone: Start: 23-97-3226Tba-patient / Non-visitMD Vidales [place] Work Phone: [facility] Vascular Surgery Work Phone: Start: 10-12-2023 End: 41-75-9492Oktfbzhra to same day surgery centerMD Flash [place] Work Phone: [facility]-Interventional Radiology Work Phone: Start: 10-12-2023 End: 06-00-1556ggqxzcrztgXU Jorgeen M [place] Work Phone: [facility] Work Phone: Start: 10-03-2023 End: 89-11-1822clgjktbctkWmyhhrm Buehrer Other [facility] Other Start: 85-53-3620Bogred outpatient visit 25 minutes Cristian Love Vascular SurgeryStart: 47-86-4640lzhomhdyfkWCZM [facility] Centertart: 08-10-2023 End: 47-72-1608Kvwura outpatient visit 15 minutesScar Ortega APRN-PEOPLESOFT PROGRAMMER Work Phone: [facility] OrthopedicsComment on above:Hx of total hip arthroplasty, right (Primary Dx)Start: 08-10-2023 End: 73-61-9197Cbdquzobte hospital visit by Asad Ortega APRN-PEOPLESOFT PROGRAMMER Work Phone: [facility] RadiologyStart: 08-09-2023 End: 80-96-2694Qvgunr outpatient visit 10 minutesMohsen Sarabia MD Work Phone: [facility] Heart, Lung & Vascular SurgeonsComment on above:Critical lower limb ischemia (HCC) (Primary Dx)Start: 06-20-2023 Documentation procedureAshanti Shoshana [facility] Heart, Lung & Vascular SurgeonsStart: 70-14-7791Icjtvc outpatient visit 25 minutesCristian SmithUCHealth Grandview Hospital Vascular SurgeryStart: 06-12-2023 End: 58-68-2325cpaxaduvuwRM Flash Lovelace Work Phone: [facility] Other Start: 06-12-2023 End: 04-85-6718Reiqzwz encounter procedureMD Flash Lovelace Work Phone: [facility]-Ultrasound [facility] VascularStart: 06-06-2023 End: 97-44-6316Voznf of hemosiderinIhsan Work Phone: [facility] HealthcareStart: 33-69-9688Xhcxsy outpatient visit 25 minutesHaven Stroud Vascular SurgeryStart: 05-23-2023 End: 29-00-8278vcdftrgcmjOV Flash Lovelace Work Phone: [facility] Other Start: 05-23-2023 End: 11-58-2660Djcfsae encounter procedureMD Flash Lovelace Work Phone: [facility]-Ultrasound [facility] VascularStart: 59-37-5358Zukwmi Rikki Sarabia MD Work Phone: [facility] & Vascular SurgeonsComment on above:PAD (peripheral artery disease) (HCC) (Primary Dx)Start: 12-20-2022 End: 75-65-1304Kdautmz encounter procedureBRENNA MOSQUERA [facility] start: 12-07-2022 End: 64-64-2890cqdeunekorTV FLASH ALDAFacility:A4Vqndi: 11-14-2022 End: 61-59-2821sgvszdoexwLhbeem Ruttino Other [facility] Other Start: 46-80-2857Ofutfa-up encounteraHven StroudPG Vascular SurgeryStart: 11-10-2022 End: 15-25-2845bygtrcqzmnSX FLASH ALDAFacility:W6Trnww: 11-08-2022 End: 43-63-3558Doetjhf encounter procedureBRENNA MOSQUERA [facility] start: 11-03-2022 End: 34-74-1340Miwvvnmpvg and management of inpatientGregory Ortiz Montoya MD Work Phone: [facility] Surgical Unit 3Start: 10-30-2022 End: 63-93-6552Onnfkoouy department patient visitFLASH Arteaga KYLIE Work Phone: Comment on above:Community acquired pneumonia of left lung, unspecified part of lung (Primary Dx); COPD exacerbation (HCC)Start: 10-11-2022 End: 80-19-0049uvzwsezdasJS FLASH ALDAFacility:A8Wfxwq: 30-26-6463Nljpzaaawdijs procedureJuelana Borjas [facility] Heart, Lung & Vascular SurgeonsStart: 23-96-3297QhyhcgUixhl Coffing [facility] Pulmonary PhysiciansComment on above:Chronic obstructive pulmonary disease, unspecified COPD type (HCC)Start: 07-14-2022 End: 14-10-2590Kgjrmm outpatient visit 15 minutesScar Ortega COMMUNITY SERVICE OFFICER COORDINATOREnterprise Communication Media Work Phone: [facility] OrthopedicsComment on above:Hx of total hip arthroplasty, right (Primary Dx)Start: 07-14-2022 End: 66-05-4883Llobgwvlvt hospital visit by Asad Ortega [employer] Work Phone: [facility] RadiologyStart: 21-03-0867Hgpgpp Only Katie Anna [facility] ServicesioW[facility] Heart, Lung & Vascular SurgeonsComment on above: Bilateral carotid artery stenosis (Primary Dx)Start: 05-03-2022 End: 41-10-3462agshfykmtcLwwbzam Buehrer Other [employer] Other Start: 12-61-3461Osjaki outpatient visit 25 minutes Cristian Mitchell Vascular SurgeryStart: 04-25-2022 End: 50-54-6433Bldcqgbup to same day surgery centerNH Flash Lovelace Work Phone: [facility]-Interventional RadiologyStart: 04-19-2022 End: 35-85-2269kllqtbywsfUpurqql Buehrer Other [employer] Other Start: 01-22-1362Quetmu outpatient new 45 minutes Cristian Mitchell Vascular SurgeryStart: 98-87-0662Rfetuuezckbjh procedureEric Richie Fenton DPM Work Phone: OkioHealthStart: 04-14-2022 End: 21-90-1476Qjvhikjis department patient visitCarson Brock MD Work Phone: [facility] Medical ObservationStart: 21-61-1579Djkzvmofxymep procedureKatie Andersonnoy [facility] Heart, Lung & Vascular SurgeonsStart: 02-25-2022 End: 41-58-7087Cavyue outpatient new 45 minutesPatrick Magy Otto MD Work Phone: [facility] Pulmonary PhysiciansComment on above: Chronic obstructive pulmonary disease, unspecified COPD type (HCC) (Primary Dx); Pulmonary noduleStart: 01-28-2022 End: 26-22-7099jtjksacmmgAMKKBZZ ALGHOTHANIFacility:U5Yzbpv: 01-18-2022 End: 23-53-3640Aaygxjrcgy and management of inpatientSteven Jagruti Mcguire MD Work Phone: [facility] Surgical Unit 3Start: 13-38-9563Kuzywvyngiagu procedureKipnukgudelia Anan [facility] Heart, Lung & Vascular SurgeonsStart: 01-12-2022 End: 65-59-5979Intlfi outpatient visit 15 minutesDashawn Silvestre MD Work Phone: [facility] OrthopedicsComment on above:Hx of total hip arthroplasty, right (Primary Dx)Start: 01-12-2022 End: 19-51-5491Uongxrfhnz hospital visit by Sebastian Silvestre MD Work Phone: [facility] RadiologyStart: 12-28-2021 End: 72-65-6802abxeldzpflZPFRCPremier Health PhysiciansStart: 12-28-2021 End: 13-01-7335Ipzlks outpatient new 30 minutesPen[facility] Work Phone: [facility] Physicians DermatologyComment on above: Actinic keratosis (Primary Dx); SK (seborrheic keratosis); Inflamed seborrheic keratosis; Skin tenderness; Xerosis cutisStart: 11-24-2021 End: [id number] outpatient visit 15 minutesDashawn Silvestre MD Work Phone: [facility] OrthopedicsComment on above:Pain in prosthetic joint, subsequent encounter (Primary Dx)Start: 11-24-2021 End: [id number] [facility] visit by Sebastian Silvestre MD Work Phone: [facility] RadiologyStart: 04-06-2021 End: 19-06-1994Cepgii [facility], Lung & Vascular SurgeonsComment on above:Bilateral carotid artery stenosis (Primary Dx); PAD (peripheral artery disease) (HCC)PAD (peripheral artery disease) (HCC) (Primary Dx)Start: 09-11-2020 End: 82-28-8852Mpzugh Cathieeffie Toth Daviddulce Work Phone: [facility] Start: 03-16-2020 End: 36-97-7080Hzglxxrahf hospital visit by Solange Sarabia Work Phone: [facility] Comment on above:Bilateral carotid artery stenosis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)Start: 10-21-2019 End: 97-63-0736Oaxkzfncxf hospital visit by Solange Sarabia Work Phone: [facility] CTComment on above:S/P bypass graft of extremity; PAD (peripheral artery disease) (HCC); 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) Start: 10-09-2019 End: 94-18-3809Lghrac outpatient visit 25 minutesRose Rosales Work Phone: [facility] Heart, Lung & Vascular SurgeonsComment on above:Pain of left lower extremity (Primary Dx)Start: 10-09-2019 End: 79-76-8129Mngceqpljd hospital visit by Solange Sarabia Work Phone: [facility] Cardiac Non-Invasive LabComment on above: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); S/P bypass graft of extremityStart: 03-18-2019 End: 71-61-6577Gjoocfdjzh hospital visit by Solange Sarabia Work Phone: [facility] Comment on above:Bilateral carotid artery stenosisStart: 03-13-2019 End: 49-21-9651Utzfuh outpatient visit 10 minutesMohsen Now[employer] Work Phone: [facility] Heart, Lung & Vascular SurgeonsComment on above:Critical lower limb ischemia (Primary Dx)Start: 03-13-2019 End: 52-33-9740Hpkchruogl hospital visit by Solange Sarabia Work Phone: [facility]Met[facility] Centerist Cardiac Non-Invasive LabComment on above: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 ENTComment on above:Referred otalgia of right ear (Primary Dx); Bilateral temporomandibular joint painStart: 68-46-4302Relfkla encounter procedureANALIA BRYANTacility:ENT Spec-NorthStart: 10-31-2018 End: 36-40-6925Wccufexfu department patient visitMercy Health – The Jewish Hospitaltart: 10-31-2018 End: 13-50-4247Nlmopq outpatient visit 10 minutesMohsen [employer] Work Phone: [facility] Heart, Lung & Vascular SurgeonsComment on above:Gangrene of left foot (HCC) (Primary Dx); Critical lower limb ischemiaStart: 10-31-2018 End: 03-31-7492Vvykbjgsvx hospital visit by Solange Sarabia Work Phone: [facility] AutomotiveMet[facility] Campus Medical Centerist Cardiac Non-Invasive LabComment on above: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 & Care CoordinationStart: 10-26-2018 End: 99-86-2522Abfilrl encounter procedureCarmillicent MurrayOhioHealth Grant Medical CenterStart: 10-25-2018 End: 11-92-5863Zlcfuo follow up visit related to original Yael Mann Work Phone: 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 Wound CareComment on above:Gangrene (HCC) (Primary Dx); 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 (HCC); PVD (peripheral vascular disease) (HCC); Lower extremity edema; 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, leftStart: 10-04-2018 End: 95-75-6717Jzhasbzgoy and management of inpatientFLYNN MANNBoundary Community Hospitaltart: 10-04-2018 End: 34-13-9281Jbyconzwqb and management of inpatientFlynn Mann Work Phone: [facility] 4 Bone & JointComment on above: Acute post-operative pain (Primary Dx)Start: 10-04-2018 End: 23-73-4870Oisxjw outpatient visit 15 minutesFlynn Mann Work Phone: [facility] Wound CareComment on above:Gangrene (HCC) (Primary Dx); PVD (peripheral vascular disease) (HCC); Left foot pain; Critical lower limb ischemia; Ulcer of toe of left foot, with necrosis of bone (HCC)Start: 09-27-2018 Coordination of care [facility]jose D[facility] & Care CoordinationStart: 09-27-2018 End: 13-45-5584Bgcilgz encounter procedureJoaquínmillicent MurrayRanken Jordan Pediatric Specialty HospitalHealthStart: 09-21-2018 End: 10-20-7458Aspjvmrjrfec of care Al[facility]na [facility] Wound CareStart: 09-21-2018 End: 35-98-6791Dmysbpj encounter procedureJoaquínmillicent MurrayRanken Jordan Pediatric Specialty HospitalHealthStart: 09-20-2018 End: 78-31-6917Afvzzch encounter procedureFlynn Mann Work Phone: [phone] [place] [address] FluoroscopyComment on above:Critical lower limb ischemiaStart: 09-20-2018 End: 24-29-1679Nszzjl outpatient visit 15 minutesFlynn Mann Work Phone: [facility] Wound CareComment on above:Critical lower limb ischemia (Primary Dx); Gangrene (HCC); PVD (peripheral vascular disease) (HCC); Left foot painStart: 09-04-2018 End: 22-79-8238Uefdlcyfxp and management of inpatientNicole Keisha Em Work Phone: [facility] Vascular Thoracic Surgery Comment on above:Ischemic foot (Primary Dx); PAD (peripheral artery disease) (HCC); Critical lower limb ischemiaStart: 20-67-3100Onenpja encounter procedureISAIAS Aragon [facility] HospitalStart: 50-78-4752Dyazyvm encounter procedureISAIAS Aragon [facility] Medical Centertart: 21-98-8031Ixnmckk encounter procedureISAIAS Aragon [facility]i Medical Centertart: 10-31-2016 End: 15-44-7211WxkywlusuhIOOM A ELTAHAWYFacility:[facility] HOSPITALtart: 03-06-2014 End: 86-17-0288Vwclslp encounter procedureFILSYDNI HuertaMichiana Behavioral Health Center Procedures DateProcedureProcedure DetailPerforming ClinicianStart: 61-17-6175TMUM FAST CULTUREGeneric External Data ProviderStart: 04-87-1503RCBJ FAST SMEARGeneric External Data ProviderStart: 82-28-4980HIN SPECIMEN PROCESSINGGeneric External Data ProviderStart: 71-43-3299Fzghaqdqwx bloodJose Manuel Hernandez MD Work Phone: Start: 84-92-6809Iqsdrkvq screenRafaela Garcia MD Work Phone: Start: 29-13-0592Konfvibt screenRAFAELA GARCIAHComment on above:Performed By: #### XM #### [facility] ([facility]) [address] [place] [id number]: 25-28-0125Asodh typing serologic aboRafaela Garcia MD Work Phone: Start: 36-82-7726TII AND ELECTRONIC Irving Garcia MD Work Phone: Start: 23-80-8487Qubevaxp blood count with white cell differential, Nancy Garcia MD Work Phone: Start: 15-40-1873Zbmnqnwjvc bloodJose Manuel Hernandez MD Work Phone: Start: 37-46-5061HMW AND ELECTRONIC Irving Garcia MD Work Phone: Start: 64-72-1662Aoesgppp blood count with white cell differential, automatedRafaela Garcia MD Work Phone: Start: 49-04-0676Jkpwdtezdw Maged Garcia MD Work Phone: Start: 39-93-4495Uisewzs function panelRafaela Garcia MD Work Phone: Start: 61-35-2066Cxzoq count hematocritRafaela Garcia MD Work Phone: Start: 55-77-7285Mnkk screen quantitative vancomycin Gail Awad [facility] Work Phone: Start: 63-69-9631Axm bact xcpt urine blood/stool aerobic isolRafaela Garcia MD Work Phone: Start: 76-00-4601O-reactive proteinSeth W Murray DPM Work Phone: Start: 03-42-5064Jahvaepmon bloodJose Manuel Hernandez MD Work Phone: Start: 34-48-8227Ya abdominal real time w/image limitedJose Manuel Hernandez MD Work Phone: Start: 02-91-6114Axecmkeuo b surf antibody hbsabAndrdinorah Hernandez MD Work Phone: Start: 06-18-5094Ogufgmqxr directJose Manuel Hernandez MD Work Phone: Start: 64-62-2261BHZ AND ELECTRONIC DIFFJose Manuel Hernandez MD Work Phone: Start: 40-60-7843Ootqxbze blood count with white cell differential, automatedJose Manuel Hernandez MD Work Phone: Start: 52-38-0065Aqnwu chest X-rayFlash Lovelace MD Work Phone: Start: 18-51-7256NQF BASIC METABOLIC PANELGeneric External Data ProviderStart: 36-08-2966FCQ C REACTIVE PROTEINGeneric External Data ProviderStart: 09-16-6942WA FOOT RT MIN 3VGeneric External Data Provider Start: 91-93-1571WUD CBC WITH AUTO DIFFGeneric External Data ProviderStart: 94-92-6384ZDEZTB SIMPLEX VIRUS 1Kjean-paul BROWER Work Phone: Start: 99-57-8392Mzliv metabolic panel calcium total Muna Otto MD Work Phone: Start: 63-75-9881Ori-invas physiologic std extremity art 2 levelMattharrison Barraza MD Work Phone: Start: 44-97-3968Wmhgm metabolic panel calcium total Muna Otto MD Work Phone: Start: 91-57-8754Xwzgx metabolic panel calcium total Muna Magy Otto MD Work Phone: Start: 51-47-9148Yhsqw metabolic panel calcium total Muna Magy Otto MD Work Phone: Start: 21-54-0064Cigxt count hematocritAna Luisa Murray MD Work Phone: Start: 79-29-0714Asxwarmgfya extremity unilateral rs&i Mohsen Sarabia MD Work Phone: Start: 03-17-2025 End: 73-10-5851Fyf fem-ant tibl pst tibl proneal art/oth dstlJoy Cornelio Sarabia MD Work Phone: Start: 77-81-3093Eczrrxu [facility] Work Phone: Start: 11-03-5619Znjij metabolic panel calcium total Muna Otto MD Work Phone: Start: 65-83-4075Igaiupdlmeydyu time partial plasma/whole bloodAna Luisa Murray MD Work Phone: Start: 13-87-3729Ass routine ecg w/least 12 lds trcg only w/o i&rHafsdeanna Murray MD Work Phone: Start: 90-83-1986Himmn typing serologic aboBeena Barraza MD Work Phone: Start: 16-43-1171Cxertsnqlqr timeBeena Barraza MD Work Phone: Start: 39-56-2767Esbvc metabolic panel calcium total Muna Otto MD Work Phone: Start: 27-41-3405Bawexkbbejenjf time partial plasma/whole bloodDavid Richie Mast MD Work Phone: Start: 53-11-8627Dpgvz count hematocritAna Luisa Murray MD Work Phone: Start: 62-32-5870Bkkzp metabolic panel calcium total Muna Otto MD Work Phone: Start: 03-14-2025 End: 72-73-9724Ott-scan xtr veins unilateral/limited studyMatthew Graeme Barraza MD Work Phone: Start: 58-99-8541Owz routine ecg w/least 12 lds trcg only w/o i&rPatrick Magy Otto MD Work Phone: Start: 89-53-7978Xay routine ecg w/least 12 lds trcg only w/o i&rElizabeth Keisha Escobar CNP Work Phone: Start: 17-49-9037Xnttsber blood count with white cell differential, manualScott Muna Stallings PA-C Work Phone: Start: 01-71-4783YSGN Kayla Macdonald MD Work Phone: Start: 07-87-0761FYBWW ABDULAZIZ Macdonald MD Work Phone: [phone]: 26-92-3556IGII Kayla Macdonald MD Work Phone: [phone]: 68-22-7970Xenynesbgtm timeScott Muna Stallings PA-C Work Phone: [phone]: 31-98-8076NADWVWFALIVIA Macdonald MD Work Phone: Start: 74-55-8618Vtpfer-up visitFollow-upKEN PARRA MED[facility] CLINICStart: 81-36-9418BD DSA (Angiogram) Right LegFlash Lovelace MD Work Phone: Start: 64-91-8769YEYGGOCCOBFNLPMGK REPORTJoy Cornelio Sarabia MD Work Phone: Start: 02-44-8600Vsfaa dip stick/tablet rgnt non-auto w/o micrscpKim Meet Wilson CRUDE TESTER Work Phone: Start: 14-06-2910Ywplubz of amputation of footAcquired absence of left footErika Saab LPNStart: 86-33-4877KDZB ECHO LIMITED STUDY Generic External Data ProviderStart: 79-47-1008AVA BASIC METABOLIC PANELGeneric External Data ProviderStart: 74-09-9888RZD CBC WITH AUTO DIFFGeneric External Data ProviderStart: 96-80-1342DCJ SED RATEGeneric External Data ProviderStart: 42-68-4229R-REACTIVE PROTEIN, CARDIACGeneric External Data ProviderStart: 61-25-4393UABO DIFFERENTIALGeneric External Data ProviderStart: 14-72-1772AGO BASIC METABOLIC PANELGeneric External Data ProviderStart: 10-57-4155Uhdrrhz of coronary artery bypass graftingHx of CABGFlash Lovelace MD Work Phone: Start: 86-87-6264YUR MAGNESIUMGeneric External Data ProviderStart: 33-71-6706JRZ TROPONIN IGeneric External Data ProviderStart: 82-88-9292LCCY BASIC METABOLIC PANEL REFLEX MGGeneric External Data Provider Start: 54-32-3496NXH PROTIME/INRGeneric External Data ProviderStart: 10-12-2023 AngiographyMD Rugdana Valparaiso Work Phone: Start: 39-29-0008Pamkbmikhv (US) doppler flow mapping of vein of upper limbMD Rugdana [place]aiso Work Phone: Start: 98-31-4404LH scan venography of lower limbsMD Rugen [place] Work Phone: Start: 62-45-9776Oinblgk ultrasonography of bilateral carotid arteriesMD Rugdana [place]o Work Phone: Start: 49-18-5963Kpjlp brachial pressure indexMD Rugdana Albania Work Phone: Start: 85-63-7881Pcgype scan of lower limb arteriesMD Flash Lovelace Work Phone: Start: 72-50-8372Zbcwknq of amputation of footStatus post amputation of footTonedana Rochezia BROWER Work Phone: Start: 81-37-6322Algwxpdhhv exam chest single view Jose Escalona [employer] PROGRAMMER Work Phone: Start: 42-82-6863Rnfhr function Mario Alberto Claros MD Work Phone: Start: 56-37-4153Enjbz of troponin quantitative Jass Barboza MD Work Phone: Start: 73-34-4563Dcyfm of troponin quantitative Jass Barboza MD Work Phone: Start: 23-64-7642Fhy routine ecg w/least 12 lds trcg only w/o i&rJlucy Barboza MD Work Phone: Start: 22-97-2883Wyvta function Mario Alberto Claros MD Work Phone: Start: 85-48-2445GDS w or wo Essence bruno MD Work Phone: Start: 19-82-7715Aupja function Mario Alberto Claros MD Work Phone: Start: 43-19-8793Yzozp function Mario Alberto Claros MD Work Phone: Start: 71-00-6065Vrkbm humerus minimum 2 viewsAndandres Macdonald [employer] PROGRAMMER Work Phone: Start: 52-58-7963Akwqv function Mario Alberto Claros MD Work Phone: Start: 11-04-2022 End: 26-88-8659Josa ia mult step method nos each organismDuke Claros MD Work Phone: Start: 91-22-4960Jhvey s aureus methicillin resist amp probe tqKyle Nasreen PharmDStart: 55-40-3031Nymtxuxbel chain reaction analysis Duke Claros MD Work Phone: Start: 11-01-7865FUBJ-CoV-2 (COVID-19) RNA [Presence] in Respiratory specimen by OREN with probe detectionRonnie Montoya MD Work Phone: Start: 73-13-1754Np angiography chest w/contrast/noncontrastKristina Carline Khan PA-C Work Phone: [phone]: 17-39-4887Ioass of troponin quantitativeRonnie Montoya MD Work Phone: Start: 95-96-3817Mwulyidbor exam chest single view Aureliasue Tillman [facility] Work Phone: Start: 23-76-2170Abcfy foot complete minimum 3 views Aureliasue Tillman [employer] PROGRAMMER Work Phone: Start: 78-30-1985Xgh-scan xtr veins complete bilateral studyKimberly Awilda Tillman [employer] PROGRAM[employer] Work Phone: Start: 68-58-3014Ifujo metabolic panel calcium total Aurelia Awilda Tillman [employer] PROGRAMMER Work Phone: Start: 32-35-3366G-reactive proteinKibolaerly Awilda Tillman [employer] PROGRAMMER Work Phone: Start: 56-45-6088VIRH TOPTriage Protocol Emergency Start: 83-49-6960KFSFP BLUE TOPTriage Protocol Emergency MDStart: 11-03-2022 LIGHT GREEN TOPTriage Protocol Emergency MDStart: 61-48-7351SHJA TOPTriage Protocol Emergency MDStart: 95-93-9972Vux routine ecg w/least 12 lds trcg only w/o i&rKimberly Awilda Tillman [employer] PROGRAMMER Work Phone: Start: 11-03-2022 End: 89-14-5943NMNRMVQ DRAWTriage Protocol Emergency MDStart: 66-88-1405QQQQR CONTAINERTriage Protocol Emergency MDStart: 11-03-2022 End: 58-87-5209Qvmod dip stick/tablet reagent auto microscopyKimberly Awilda Tillman [employer] PROGRAMMER Work Phone: Start: 49-62-2989Hnzav respiratry probe & rev trnscr 12- targetDalila Arreguin MD Work Phone: Start: 40-08-4166Dcypbvyuxj exam chest single view Dalila Arreguin MD Work Phone: Start: 71-92-8684GQSVVMXPKMXYVpjdo D Baker MD Work Phone: Start: 10-30-2022 End: 15-16-3610Zhczdcokvfw peptideDalila Arreguin MD Work Phone: Start: 90-25-4868LOQ screeningDR FLASH ALDAComment on above:Performed By: #### PSAD #### [facility] [address] [place] [address] Dr. Benedict EdmondsonStart: 91-34-8902Kxywbeirmw (US) doppler flow mapping of vein of upper limbMD Flash Val[place]o Work Phone: Start: 48-77-6855Nxcufagzfb peripheral vascular flow studyMD Rugdana Albania Work Phone: Start: 69-94-2819Eepogihre aortogramMD Rugdana [place] Work Phone: Start: 28-04-3147XEPO-CoV-2 (COVID-19) RNA [Presence] in Respiratory specimen by OREN with probe detectionCarson Brock MD Work Phone: Start: 35-58-6835Rfo-invas physiologic std extremity art 2 levelJoshua M Durga DO Work Phone: Start: 58-30-6236Qan abdl aorta&bi iliofem w/contrast&postpJoshua M Durga DO Work Phone: Start: 61-90-8208Gcwrw metabolic panel calcium total Mehnaz Bhatthortensia Lamb PA-C Work Phone: Start: 59-90-9276NYVU TOPTriage Protocol Emergency MD Start: 84-60-5657ACDZEECT TOPTriage Protocol Emergency MDStart: 58-09-4336YIKCX GREEN TOPTriage Protocol Emergency MDStart: 63-14-2643QELS GREEN TOPTriage Protocol Emergency MDStart: 88-59-5403IEAX TOPTriage Protocol Emergency MDStart: 33-20-9528NOPFMFP DRAWTriage Protocol Emergency MDStart: 75-02-5498Sscrw count complete auto&auto difrntl wbcParvez Mak MD Work Phone: Start: 54-48-0600Mydom metabolic panel calcium total Parvez Mak MD Work Phone: Start: 35-77-8392Yw thorax w/o contrast Radha Mak MD Work Phone: Start: 01-19-2022 End: 66-88-1337ZceifdnmyiydiawvqYsxxnbro Not In SystemStart: 32-07-3128Yecyb metabolic panel calcium totalZeesosmani Back DO Work Phone: Start: 07-84-6827Bxx abdl aorta&bi iliofem w/contrast&postpZeeshan Eran Back DO Work Phone: Start: 50-89-1574Clo routine ecg w/least 12 lds w/i&r Mikey Mcguire MD Work Phone: Start: 01-18-2022 End: 34-08-1210Kussj ankle complete minimum 3 viewsSamantha Oscar Ojeda PA-C Work Phone: Start: 01-18-2022 End: 28-00-0039Bfyej metabolic panel calcium totalAshdeanna Bhatthortensia Lamb PA-C Work Phone: Start: 56-42-6726F-reactive proteinAshdeanna Bhatthortensia Lamb PA-C Work Phone: Start: 52-55-6879Ygcdpwu bacterial blood aerobic w/id isolatesAshdeanna Lamb PA-C Work Phone: Start: 27-55-3885KVDY Jailyn Mcguire MD Work Phone: Start: 69-88-9549OSLRI BLUE Jailyn Mcguire MD Work Phone: Start: 20-04-7551QWMKZ GREEN Jailyn Mcguire MD Work Phone: Start: 85-80-2897YSNDYT VENOUS BLOOD GASES AND PERFORM Mehnazdeanna Lamb PA-C Work Phone: Start: 43-17-1571KIOE Jailyn Mcguire MD Work Phone: Start: 30-84-1200ZQQPCWN DRAWSteven Jagruti Mcguire MD Work Phone: Start: 72-80-6852Rrl routine ecg w/least 12 lds w/i&r Printing Machine Operator Tape Rules GenericStart: 29-28-9889Xvclipi artery doppler assessmentBridgeport [employer] Work Phone: Start: 42-88-6819Phg-invas physiologic std extremity art 2 [facility] [employer] Work Phone: Start: 96-91-4714Oqh abdl aorta&bi iliofem w/contrast&postpBridgeport CornelioReacción Work Phone: Start: 34-65-1191Sgsohvezgn [Mass/volume] in BloodBridgeport CornelioReacción Work Phone: Start: 92-07-2066Boq-invas physiologic std extremity art 2 [facility] [employer] Work Phone: Start: 05-90-5154Ulp-scan lxtr art/artl bpgs uni/lmtd studyBridgeport [employer] Work Phone: Start: 93-35-0634Zrtapwi artery doppler assessmentMohsen Sarabia Work Phone: Start: 67-24-7692Ryt-invas physiologic std extremity art 2 levelMohsen Sarabia Work Phone: Start: 12-11-1533Hlv-scan lxtr art/artl bpgs uni/lmtd studyBridgeport Cornelio Sarabia Work Phone: Start: 38-49-8538Buz-invas physiologic std extremity art 2 [facility] southMohsen Sarabia Work Phone: Start: 40-62-4224Byidassvku [Mass/volume] in Serum or PlasmaHalle OrlinskiStart: 11-51-8098Fidfggrqtl [Mass/volume] in Serum or Plasma Edwina WillettersonStart: 00-72-7394Eoompexawa [Mass/volume] in Serum or Plasma Edwina WillettersonStart: 13-59-8343Soobgvfq blood count (hemogram) panel - Blood by Automated countStan Canseco Work Phone: Start: 52-17-8406Eufrqbylcg [Mass/volume] in Serum or PlasmaHalle OrlinskiStart: 52-63-0503FbeymczkhvhudcsnhrorqgyhgaEewkoil Gustavo Smithquiqueshreya Work Phone: Start: 26-45-7745Qauuzlqzy on tissue specimenMichael Gustavo Margieshreya Work Phone: Start: 53-38-0269Hhwnhbyac of esophagusMichael Gustavo Mikye Work Phone: Start: 48-68-6682Jypctabkse [Mass/volume] in Serum or PlasmaHalle OrlinskiStart: 21-44-0817Rthprzkqkl and Hematocrit panel - Blood Stan Canseco Work Phone: Start: 69-47-3192Czvwpowxkl [Mass/volume] in Serum or Plasma --troughElizabeth LakatosStart: 33-02-6985Refyrinpxs and Hematocrit panel - BloodStan Canseco Work Phone: Start: 83-36-2819Dmwlkmoxup and Hematocrit panel - BloodStan Canseco Work Phone: Start: 07-20-6094Vubmldxzhy exam chest single view Stan Canseco Work Phone: Start: 97-18-5004Zfriw occult peroxidase actv qual other sourcesStan Canseco Work Phone: Start: 02-79-7303Rowukyzd blood count (hemogram) panel - Blood by Automated countOfe Wood Work Phone: Start: 00-47-7395Hveem metabolic 2000 panel - Serum or PlasmaBrian Israel Work Phone: Start: 15-14-7838Excjfnasfc [Mass/volume] in Serum or PlasmaHalle OrlinskiStart: 15-58-0343VdctovvrivqglasqNrqv Rajiv Abdullaith Work Phone: Start: 30-80-4354Onoqvngfqd examination foot 2 views Ofecedrick Wood Work Phone: Start: 65-11-1428SOAACK TITRATEBrcedrick Wood Work Phone: Start: 28-34-0976Rejixmhrg on tissue specimenFlynn Mann Work Phone: Start: 10-08-2018 End: 43-09-3341TNVWJAIBKS TRANSMETATARSALBraranda Mann Work Phone: Start: 62-22-8054Kptyq metabolic 2000 panel - Serum or PlasmaMarcosian Israel Work Phone: Start: 48-26-1872Waqimtmm blood count (hemogram) panel - Blood by Automated countOfe Tushkykathryn Work Phone: Start: 94-08-3297HDN in Platelet poor plasma by Coagulation assayBrcedrick BuckleyFood Genius Work Phone: Start: 10-39-2029Yqjebaiefx [Mass/volume] in Serum or Plasma --troughHalle OrlinskiStart: 03-70-2237Duyaqnlvod [Mass/volume] in Serum or PlasmaHalle OrlinskiStart: 39-49-0193Hwsergth blood count (hemogram) panel - Blood by Automated countLazaro Clifton Work Phone: Start: 98-25-480421 lead ECGEric Rajiv Choi Work Phone: Start: 65-17-2535Ykxzx metabolic 2000 panel - Serum or PlasmaJonaler R Elodia Work Phone: Start: 05-36-6389R-ray of left footTyler Radha Clifton Work Phone: Start: 08-23-5349Oljsjfkj blood count with white cell differential, automatedLazaro Clifton Work Phone: Start: 74-78-8884Jvnpygcw blood count with white cell differential, manualLazaro Clifton Work Phone: Start: 58-69-4601Ernoxufjady sedimentation rate by Westergren methodTynova Clifton Work Phone: Start: 10-04-2018C reactive protein [Mass/volume] in Serum or PlasmaJonaler Radha Clifton Work Phone: Start: 40-52-0981Pwmjrugilentn metabolic 2000 panel - Serum or PlasmaJonaler Radha Clifton Work Phone: Start: 46-38-9665Deuhdzjvuq A1c/Hemoglobin.total in BloodTyler Radha Clifton Work Phone: Start: 10-81-1507J-ray of left ankleBradley Beena Mann Work Phone: Start: 77-73-8335E-ray of left footBradley Beena Mann Work Phone: Start: 47-61-5093Icavbgzyfu and Hematocrit panel - BloodVianca Franco Work Phone: Start: 50-12-4040Kbsbq metabolic 2000 panel - Serum or PlasmaNirvana B Clotildeaswat Work Phone: Start: 59-95-7826Cqlzonhw blood count (hemogram) panel - Blood by Automated countNirvana B Dianelyswat Work Phone: Start: 79-25-7409BCV in Platelet poor plasma by Coagulation assayNirvana B Dianelyswat Work Phone: Start: 26-52-5508Xslzjmnu blood count (hemogram) panel - Blood by Automated countNicole Keisha [facility] Cente[facility] Work Phone: Start: 63-72-5706Osoxp metabolic 2000 panel - Serum or PlasmaNirvana B Dianelyswat Work Phone: Start: 96-76-8662Rebflblo blood count (hemogram) panel - Blood by Automated countNirvana B Dianelyswat Work Phone: Start: 66-56-5661UUH in Platelet poor plasma by Coagulation assayNirvana B Dianelyswat Work Phone: Start: 32-03-3942Eelkhcemst and Hematocrit panel - BloodVianac Franco Work Phone: Start: 26-50-0749Egvgcr RBC preparationNirvana B Dianelyswat Work Phone: Start: 48-77-8423Vmblc type and Indirect antibody screen panel - BloodNirvana B Dianelyswat Work Phone: Start: 23-54-2931Xhtou metabolic 2000 panel - Serum or PlasmaNirvana B Dianelyswat Work Phone: Start: 64-38-4809Djawbfpz blood count (hemogram) panel - Blood by Automated countNirvana B Dianelyswat Work Phone: Start: 49-20-6657URC in Platelet poor plasma by Coagulation assayNirvana B Dianelyswat Work Phone: Start: 78-84-9357Tpugnwiv blood count (hemogram) panel - Blood by Automated countNicole Keisha Em Work Phone: Start: 63-78-7435KewjkxzpmnljwfgxaPbrzhyva Not In SystemStart: 05-46-5359Hiz-invas physiologic std extremity art 2 levelDrew Hortensia Alejandro Work Phone: Start: 41-27-2218Bsizw metabolic 2000 panel - Serum or PlasmaNirvana B Dianelyswat Work Phone: Start: 80-05-1228Amgevhec blood count (hemogram) panel - Blood by Automated countNirvana B Dianelyswat Work Phone: Start: 49-29-5636QEV in Platelet poor plasma by Coagulation assayMiryam Cabat Work Phone: Start: 05-58-7332Xxmwaebeby and Hematocrit panel - BloodKrmarciano Franco Work Phone: Start: 05-86-7598Sjxnnpyytj and Hematocrit panel - BloodKrmarciano Franco Work Phone: Start: 08-84-9348Grmhi metabolic 2000 panel - Serum or PlasmaNirvana B Dianelyswat Work Phone: Start: 83-12-4422Yvndjudi blood count (hemogram) panel - Blood by Automated countNirvana B Dianelyswat Work Phone: Start: 60-26-5064FSE in Platelet poor plasma by Coagulation assayNirvana B Dianelyswat Work Phone: Start: 87-88-7251Bpwbu metabolic 2000 panel - Serum or PlasmaNirvana B Dianelyswat Work Phone: Start: 07-15-9787Pcjsoapo blood count (hemogram) panel - Blood by Automated countNirvana B Dianelyswat Work Phone: start: 43-13-4672XGT in Platelet poor plasma by Coagulation assayNileena Rincon Work Phone: Start: 83-39-3996CI OR ANG ADDMohsen [employer] Work Phone: Start: 75-84-9898Bterjzzliza up to 1 hour physician/qhp timeMohsen [employer] Work Phone: Start: 09-07-2018 End: 93-89-9572CUTHXX PERONEAL FEMORALMohsen [employer] Work Phone: Start: 05-37-1362YQBF - referenceKrmarciano Rebeccahortensia Camargoy Work Phone: Start: 75-35-9129Oasxrkxvcv exam chest single view Vianca Franco Work Phone: Start: 62-69-6400CPFQ - referenceMichael [place] Work Phone: Start: 73-60-2752Plwpe metabolic 2000 panel - Serum or PlasmaNileena Rincon Work Phone: Start: 29-05-2078Vabgpvmb blood count (hemogram) panel - Blood by Automated countNileena Rincon Work Phone: Start: 64-33-2427GKO in Platelet poor plasma by Coagulation assayNileena Rincon Work Phone: Start: 69-07-9526YTPH - referenceKrmarciano Rebecca Franco Work Phone: Start: 39-39-0099Irahg group typingJoy CornelioReacción Work Phone: Start: 17-44-6647Dmvakhfn blood count (hemogram) panel - Blood by Automated countNicole Keisha Em Work Phone: Start: 31-77-1622Hnmui type and Indirect antibody screen panel - BloodNirvana Erin Ivorywat Work Phone: Start: 84-99-8799Wqf-scan xtr veins unilateral/limited studyDrromero Alejandro Work Phone: Start: 47-46-8599Onkag metabolic 2000 panel - Serum or PlasmaMichael [place] Work Phone: Start: 14-20-2979Onnckfsu blood count (hemogram) panel - Blood by Automated countMichael [place] Work Phone: Start: 24-84-6884Czwhgvt catheterizationYasmeen Diaz Work Phone: Start: 43-06-374347 lead ECGChejavier Diaz Work Phone: Start: 02-57-5291LEGN - referenceNicole Keisha Veitinger Work Phone: Start: 73-88-5648Xil-scan lxtr art/artl bpgs uni/lmtd studyChejavier Diaz Work Phone: Start: 83-77-1397MOUT - referenceNicole Keisha Veitinger Work Phone: Start: 53-10-7985Lfaie metabolic 2000 panel - Serum or PlasmaAmanda Triston Mckeon Work Phone: Start: 69-35-5632Iocybfih blood count (hemogram) panel - Blood by Automated countMirna Mckeon Work Phone: Start: 50-23-3300Exnkpjwvxdfu imaging procedureNicole Keisha Veitinger Work Phone: Start: 58-34-9336pEEX in Blood by Coagulation assay Tiana Keisha Veitinger Work Phone: Start: 06-08-6962Aufydnhm blood count (hemogram) panel - Blood by Automated countNicole Keisha Veitinger Work Phone: Start: 86-47-1609KOSI TOPNicole Keisha Veitinger Work Phone: Start: 13-49-0995DMEOC GREEN TOPNicole Keisha DuranSilo Labser Work Phone: Start: 93-96-0545ECZA GREEN TOPNicole Keisha [employer] Work Phone: Start: 76-09-4711AVWP TOPNicole Keisha [employer]er Work Phone: Start: 50-39-3695KHQNSIW DRAWNicole Keisha [employer] Work Phone: Start: 21-21-303390 lead ECGNicole Keisha [employer] Work Phone: Start: 90-98-5136Wkyzmiagza, device (physical object) BRENNA MOSQUERA Start: 78-24-6718EfclqzwcdfyiaJVIHUQPI PERRY Start: 64-14-3162Lsfgahduhdm biopsy of prostate using ultrasound guidanceBRENNA MOSQUERA Amputation of left footBRENNA MOSQUERA Ankle SurgeryBRENNA MOSQUERA Coronary artery bypass graftBRENNA MOSQUERA History of amputation of foot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)Mikey Mcguire MD Work Phone: History of amputation of footAcquired absence of left foot (HCC)Zoë BROWER Work Phone: Placement of stent in cardiac conduitBRENNA MOSQUERA Comment on above:x7 Plan of Treatment DateCare ActivityDetailAuthorStart: 04-55-7777GGfX/Tdap/Td vaccine (2 - Td or Tdap)DTaP/Tdap/Td vaccine (2 - Td or Tdap)WYANDOTStart: 74-15-1314Djfgukw vaccinationOhioHealthStart: 10-14-2026Medicare Annual Wellness (AWV)Medicare Annual Wellness (AWV)[facility] HealthcareStart: 51-69-6436Yuzyppigs [Moles/volume] in Serum or PlasmaPOTASSIUMOSU [facility] CenterStart: 11-01-4107Ipujdipniu screening using PHQ-9 (Patient Health Questionnaire 9) scoreDepression Screening/Follow-Up (PHQ-2/9)OhioHealthStart: 06-10-2025 End: 23-95-3090Brnxk 1996 panel - Serum or PlasmaLipid panel Lab Routine Screening for lipid disorders Medicare annual wellness visit, subsequent Exp ected: 06/10/2025 (Approximate), Expires: 06/10/2026[facility] Work Phone: Comment on above:Expected: 06/10/2025 (Approximate), Expires: 06/10/2026Start: 06-10-2025 End: 88-57-7700Dwfkpxw encounter procedureNOMS [place] [facility] CincinnatinceComment on above:ArrivedStart: 05-20-2025 End: 89-23-1008Hntbslx encounter /23/2025 1:00 PM EDT Office Visit [facility] [place] [facility] [address] [facility] [address] [place] [address] Flash Lovelace MD [address] [facility] [address] [place] [address] [facility] [place] [facility] CincinnatinceStart: 05-09-2025 [facility]art: 63-26-0966QlolfyoxlOhio State Harding Hospitaltart: 40-67-3388PpeodubalrmcCsazcyljqOhio State Harding Hospitaltart: 46-38-1886DmlrsxocaOhio State Harding Hospitaltart: 85-37-1968WilvaakqzOhiohealth Grant Medical Center CenterStart: 55-82-6061JtsyowennOhiohealth Grant Medical Center CenterStart: 90-87-3309Zmefbzjx admissionOhio State Harding Hospitaltart: 05-02-2025 [facility]tart: 71-93-2651DzlebhyvkOhio State Harding Hospitaltart: 82-64-4374Wtjkklufrjp Panel (PCR)Respiratory Panel (PCR)[facility] Hospitaltart: 05-02-2025 End: 29-20-6158Vsjckgp encounter yqmenvjtl59/05/2025 1:00 PM EDT Office Visit [facility] [place] [facility] [address] [facility] [address] [place] [phone] Zoë King PA [address] [facility] [address] [place] [address] ArrivedNOMS [place] Dickey MedinceComment on above:ArrivedStart: 89-16-9158UKZKT-19 VACCINE ()COVID-19 VACCINE ()[facility] Centertart: 63-47-6381MWHDM-19 Vaccine ()COVID-19 Vaccine ()[facility] Start: 78-84-0620Nkyzasbmn vaccinationInfluenza Vaccine (#1)New YorkHealthStart: 08-30-2025Medicare Annual Wellness (AWV)Medicare Annual Wellness (AWV)[facility] HealthcareStart: 04-24-2025 End: 30-44-9260Wygetrn encounter lpagraxmb20/28/2025 1:00 PM EDT Office Visit [facility] [address] [facility] [address] [place] [phone] Emmanuel Gonzalez DPM [address] [facility] [address] [place] [address] NOMS CI PODIATRYStart: 04-14-2025 End: 71-06-8559BS Foot - right WO contrastMR foot right wo IV contrast Imaging Routine Osteomyelitis of right foot, unspecified type (HCC) Expected: 04/14/2025, Expires: 04/14/2026[facility] Work Phone: Comment on above:Expected: 04/14/2025, Expires: 04/14/2026Start: 04-08-2025 End: 57-67-2688PIQINDFCHKE WOUND (HTRX)SUPERFICIAL WOUND (HTRX) Lab Routine Ischemic toe ulcer, right, with 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) Expected: 04/08/2025 (Approximate), Expires: 04/08/2026[facility] Work Phone: Comment on above:Expected: 04/08/2025 (Approximate), Expires: 04/08/2026Start: 04-08-2025 End: 69-56-8217Czcwafz encounter kkljbnyhb86/12/2025 11:30 AM EDT Office Visit [facility] [place] Dickey [facility] [address] [place] [address] Zoë King PA [address] [place] [address] ArrivedNOMO [place] Dickey [facility] CincinnatinceComment on above:ArrivedStart: 03-14-2025 End: 31-52-4328Kqttugw encounter procedureRiFulton County Health Center Peripheral Vascular LabStart: 80-53-1356YzbrnmsaqOhio State Harding Hospitaltart: 40-68-3269NsueewtbaOhio State Harding Hospitaltart: 01-09-2025 End: 13-59-6339Bbagocja identified in Urine by CultureUrine culture (clean catch) Microbiology Routine Dysuria Expected: 01/09/2025 (Approximate), Expires: 01/09/2026[facility] HealthcareComment on above:Expected: 01/09/2025 (Approximate), Expires: 01/09/2026Start: 01-09-2025 End: 60-24-8686Ujjqhcek specific Ag [Mass/volume] in Serum or PlasmaPSA Lab Routine History of prostate cancer Expected: 01/09/2025 (Approximate), Expires: 01/09/2026[facility] Work Phone: Comment on above:Expected: 01/09/2025 (Approximate), Expires: 01/09/2026Start: 01-09-2025 End: 82-80-1928Jekjycz encounter /15/2025 10:30 AM EDT Office Visit [facility] [address] [place] [address] Bhaskar Wilson CRUDE TESTER [address] [place] [address] ArrivedNOMS CI FMComment on above:ArrivedStart: 11-04-2024 End: 25-54-3578Euckrqt encounter nfpigmzqe60/10/2025 10:45 AM EDT Office Visit [facility] [address] [place] [address] Flash Lovelace MD [address] [place] [address] NOMS CI FMStart: 08-12-2024 End: 51-22-5078Yevdpws encounter crutyxpxo47/16/2024 1:30 PM EST Office Visit [facility] [address] [place] [address] Flash Lovelace MD [address] [place] [address] N[facility] CI FMStart: 07-29-2024 End: 56-10-4904Ueicxqg encounter wtapopiql05/02/2024 10:00 AM EST Office Visit [facility] [address] [place] [address] Flash Lovelace MD [address] [place] [address] [facility] CI FMStart: 92-44-8473Ogniwyj and physical examination, annual for health maintenanceTwin County Regional Healthcare VisitOhioHealthStart: 10-10-2024Medicare Annual Wellness (AWV)Medicare Annual Wellness (AWV)[facility] HealthcareStart: 10-10-2024Medicare Wellness VisitMedicare Wellness VisitOhioHealthStart: 05-21-2024 End: 14-98-2731Ekejvle encounter xrzzuiucy93/24/2024 1:00 PM EDT Office Visit [facility] [address] [place] [address] Zoë King, PA [address] [place] [address] ArrivedNOMS CI FMComment on above:ArrivedStart: 03-49-5242BKQMD-19 Vaccine ()COVID-19 Vaccine ()[facility] HospitalStart: 85-87-0716Xzeflsjjj vaccinationInfluenza Vaccine (#1) [facility] HealthcareStart: 04-26-2024 End: 73-64-3642Vufcubc encounter gxnooibvx53/30/2024 9:30 AM EDT Office Visit [facility] [address] [place] [address] Zoë King PA [address] [place] [address] ArrivedNOMS CI FMComment on above:ArrivedStart: 04-57-9309XwjtvrwlkOhio State Harding Hospitaltart: 08-09-2023 End: 57-02-2312Ngcymjd encounter procedureRiverside Confucianist Cardiac Non- Invasive LabStart: 07-13-2023 End: 40-13-1623Rahjncv encounter dmynjzfvi68/16/2023 Office Visit Orthopaedics Scar Ortega, COMMUNITY SERVICE OFFICER COORDINATOR-PEOPLESOFT PROGRAMMER [address] [place] [address] [facility] OrthopedicsStart: 05-16-2023 End: 37-03-7576Tjlrjadxht ankle / brachial indices extremity completeUltrasound ankle / brachial indices extremity complete Vascular Ultrasound Routine PAD (peripheral artery disease) ([facility]) Expected: 05/16/2023, Expires: 07/15/2024 [facility] Work Phone: Comment on above:Expected: 05/16/2023, Expires: 07/15/2024Start: 05-16-2023 End: 80-75-8390EF Duplex Bypass Graft Left LEUS Duplex Bypass Graft Left LE Vascular Ultrasound Routine PAD (peripheral artery disease) ([facility]) Expected: 05/16/2023, Expires: 07/15/2024OhioHealthComment on above:Expected: 05/16/2023, Expires: 07/15/2024Start: 14-11-2062KWKKI-19 Vaccine ( season)COVID- 19 Vaccine ( season)[facility] HospitalStart: 60-89-9217TBTBV-19 VACCINE ( season)COVID-19 VACCINE ( season)[facility] Hospitaltart: 37-15-5994Rxztvpesj vaccinationSequential Influenza Vaccine (#1)[facility] HospitalStart: 53-10-7871Drkzec Wellness Visit (AWV)Annual Wellness Visit (AWV)WYANDOTStart: 07-14-2022 End: 42-39-2970Hjlqpsg encounter utculmccl97/17/2022 Office Visit Orthopaedics Scar Ortega, COMMUNITY SERVICE OFFICER COORDINATOR-PEOPLESOFT PROGRAMMER [address] [place] [address] [facility] OrthopedicsStart: 05-25-2022 End: 86-69-5600Ehplsxt artery doppler assessmentCarotid Duplex Vascular Ultrasound Routine Bilateral carotid artery stenosis Expected: 05/25/2022, E xpires: 07/25/2023[facility] Work Phone: Comment on above:Expected: 05/25/2022, Expires: 07/25/2023Start: 05-23-2022 End: 01-19-5655Gqstbtz encounter alirjasvg44/26/2022 Office Visit Pulmonology Angela Guerra MD [address] [place] [address] [facility] Pulmonary PhysiciansStart: 05-11-2022 End: 37-96-4553BP of chest without contrastCT Chest Without Contrast Imaging Routine Pulmonary nodule Expected: 05/11/2022, Expires: 02/25/2023[facility] Work Phone: Comment on above:Expected: 05/11/2022, Expires: 02/25/2023Start: 05-11-2022 End: 41-43-0233Lfxstyn encounter muvkhlnzf56/14/2022 Appointment Radiology Angela Guerra MD [address] [place] [address] [facility] [address] ScanStart: 76-60-1491Oaodhkcxu vaccinationSequential Influenza Vaccine (#1)[facility]HealthStart: 97-82-6520KkspmxfgdSt. Anthony'S Hospital Work Phone: Start: 01-19-2022 End: 41-94-3750Vgkxtad encounter procedureRiFulton County Health Center Peripheral Vascular LabStart: 01-12-2022 End: 17-78-8050Axbsrek encounter crrblyyeb55/18/2022 Office Visit Orthopaedics Dashawn Silvestre MD [address] [place] [address] [facility] OrthopedicsStart: 11-29-2021 End: 22-96-8505jljlsuehhw91/04/2022 Rehab Services Visit Physical Therapy Dashawn Silvestre MD [address] [place] [address] Andree Cronin, PT [address] [facility] , [place] [address] BucyrusStart: 74-07-8542ZZRLH-19 Vaccine (4 - Booster for Moderna series)COVID-19 Vaccine (4 - Booster for Moderna series)[facility] Start: 74-31-7126UZZUR-19 Vaccine (4 - Moderna series)COVID-19 Vaccine (4 - Moderna series)[facility]HealthStart: 40-89-8831Xneujdk and physical examination, annual for health maintenanceTwin County Regional Healthcare VisitOhioHealthStart: 10-62-2298Xbhpkpocw vaccinationSequential Influenza Vaccine (#1)[facility]HealthStart: 04-06-2021 End: 45-62-8785Jsratsb artery doppler assessmentCarotid Duplex Vascular Ultrasound Routine Bilateral carotid artery stenosis Expected: 04/06/2021, E xpires: 06/06/2022hioHealthComment on above:Expected: 04/06/2021, Expires: 06/06/2022tart: 04-06-2021 End: 13-65-4878Snrfzgokqv ankle / brachial indices extremity completeUltrasound ankle / brachial indices extremity complete Vascular Ultrasound Routine PAD (peripheral artery disease) (HCC) Expected: 04/06/2021, Expires: 06/06/2022 OhioHealthComment on above:Expected: 04/06/2021, Expires: 2Start: 04-06-2021 End: 80-00-0061Bkrxcxagag duplex arterial leg leftUltrasound duplex arterial leg left Vascular Ultrasound Routine PAD (peripheral artery disease) (HCC) Expected: 04/06/2021, Expires: 06/06/2022hioHealthComment on above:Expected: 04/06/2021, Expires: 06/06/2022tart: 24-76-8375BVXWJ-19 VACCINE (3 - Booster for Moderna series)COVID-19 VACCINE (3 - Booster for Moderna series)[facility] SystemStart: 67-97-0401MCURP-19 Vaccine (3 - Booster for Moderna series)COVID- 19 Vaccine (3 - Booster for Moderna series)[facility]HealthStart: 80-38-3595Lqzuenz and physical examination, annual for [facility] VisitWilson [facility] Hospital Start: 14-90-0803Faajeerry vaccination givenSequential Influenza Vaccine (#1) [facility]HealthStart: 52-56-0225VKtP/Tdap/Td Vaccines (2 - Td or Tdap)DTaP/Tdap/Td Vaccines (2 - Td or Tdap)[facility] HealthcareStart: 10-21-2019 End: 65-34-7537Slbxnhvavmy57/24/2020 Appointment Radiology Mohsen Sarabia MD [address] [place] [address] [phone] [facility] CTStart: 64-01-3210Ghzosyrhk vaccination given SEQUENTIAL INFLUENZA VACCINE (#1)[facility]HealthStart: 03-18-2019 End: 93-98-6279Gfzpjupyrpj17/22/2019 Appointment Cardiology Mohsen Sarabia MD [address] [facility] [address] [place] [address] [phone] [facility] Peripheral Vascular LabStart: 11-01-2018 End: 84-46-3157NiitykzdtjaKgmqcrfub [facility] LabStart: 10-31-2018 End: 61-86-5781NwcunvwxncoVkgohacgu [facility] LabStart: 10-25-2018 End: 84-56-1386Bqzlsf Visit10/25/2018 Office Visit Wound Care Flynn Mann DPM [address] [place], [place] [phone] [facility] Wound CareStart: 10-10-2018 End: 30-51-2869Azwukp-Up10/10/2018 Follow-Up Cardiothoracic Surgery Mohsen Sarabia MD [address] [facility] [address] [place] [address] [phone] [facility] Vascular SurgeonsStart: 10-04-2018 End: 86-70-1480Tfqtks Visit10/04/2018 Office Visit Wound Care Flynn Mann DPM [address] [place], [place] [phone] [facility] Wound CareStart: 10-03-2018 End: 14-60-3779Cibcfx-Up10/03/2018 Follow-Up Cardiothoracic Surgery Mohsen Sarabia MD [address] [facility] [address] [place] [address] [phone] [facility] Vascular SurgeonsStart: 09-20-2018 End: 27-37-5940Wuffwm Visit09/20/2018 Office Visit Wound Care Flynn Mann DPM [address] [place], [place] [phone] [facility] Wound CareStart: 52-20-0775Jaenuzizj vaccination givenSEQUENTIAL INFLUENZA VACCINE (#1)[facility]HealthStart: 05-18-2016 Pneumococcal vaccinationPNEUMOCOCCAL VACCINE AGE 65+ (2 of 2 - PPSV23)[facility] Start: 18-60-3211Wqngxdhzxsdc Vaccine: Age 50+ (2 of 2 - PPSV23)Pneumococcal Vaccine: Age 50+ (2 of 2 - PPSV23)[facility]HealthStart: 33-70-8292Xpqjwdkvpfjd Vaccine: Age 50+ (2 of 2 - PPSV23, PCV20, or PCV21)Pneumococcal Vaccine: Age 50+ (2 of 2 - PPSV23, PCV20, or PCV21)[facility]HealthStart: 40-13-7755Ybkiebslrfly Vaccine: Age 65+ (1 of 2 - PPSV23)Pneumococcal Vaccine: Age 65+ (1 of 2 - PPSV23)[facility]HealthStart: 43-68-6597Azidlubpfymo Vaccine: Age 65+ (2 - PPSV23 or PCV20)Pneumococcal Vaccine: Age 65+ (2 - PPSV23 or PCV20)[facility]HealthStart: 08-24-4596Wtkuskvalygd Vaccine: Age 65+ (2 of 2 - PPSV23 or PCV20)Pneumococcal Vaccine: Age 65+ (2 of 2 - PPSV23 or PCV20)[facility]HealthStart: 07-13-2015 Pneumococcal Vaccine: Age 65+ (2 of 2 - PPSV23)Pneumococcal Vaccine: Age 65+ (2 of 2 - PPSV23)[facility]HealthStart: 58-55-4358Vtimhechryg Syncytial Virus Immunization: Risk, 60-74 Risk, or 75+ (1 - 1-dose 75+ series) Respiratory Syncytial Virus Immunization: Risk, 60-74 Risk, or 75+ (1 - 1-dose 75+ series)[facility]HealthStart: 81-75-7179CIZ VACCINE (1 - 1-dose 75+ series)RSV VACCINE (1 - 1-dose 75+ series)[facility] Centertart: 22-74-6747Vkom risk assessmentOhioHealthStart: 85-64-6935Sjgyosubbaym vaccinationLake County Memorial Hospital - West SystemStart: 17-30-9582Iaaaxtzusmgmnm of herpes zoster vaccineZOSTER VACCINES (1 of 2)[facility]HealthStart: 61-83-5792Mgypnopr vaccine (1 of 2)Shingles vaccine (1 of 2)WYANDOTStart: 99-88-8775Ajrnex vaccine hzv live for subcutaneous useZOSTER (SHINGLES) VACCINE (1 of 2)[facility] Hospitaltart: 84-50-9550MbsykapzektEGVHXUZAJQ CANCER SCREENING DISCUSSIONAvita Health System Gal[facility] Start: 12-08-7170Izxdbntsd for malignant neoplasm of colonCOLORECTAL CANCER SCREENING DISCUSSIONSalem City Hospitaltart: 09-97-6763Lejpm diphtheria, tetanus and acellular pertussis (DTaP) vaccinationTDAP (ADULT)[facility] Hospitaltart: 84-30-1409Hvnnpot vaccinationTETANUSASelect Medical Specialty Hospital - Southeast Ohiotart: 90-04-8561Mfwtkfjcon depression screening assessmentDepression Screening (PHQ9) [facility] HospitalStart: 49-05-0497UDDJR-19 Vaccine (1)COVID-19 Vaccine (1)[facility] Start: 36-80-6178Fqqajvdwad ScreenDepression ScreenWYANDOTStart: 1952 Depression screening using PHQ-9 (Patient Health Questionnaire 9) score [facility] HospitalStart: 49-02-1726Igbma panelLipidsWCAREPARTNERS REHABILITATION HOSPITALTStart: 90-35-5257Skjmstsdcgpt vaccinationPNEUMOCOCCAL VACCINE SERIES (1 - PCV)[facility] Hospitaltart: 73-98-1219Xnwzkoo and physical examination, annual for health maintenance Wellness VisitOhioHealthStart: 65-43-6631ZEDEZ-19 VACCINE (#1)COVID-19 VACCINE (#1)[facility] Hospitaltart: 71-06-3601Afmb risk assessmentFalls Risk AssessmentOhioHealthStart: 41-45-5323Vfttxyp vaccinationOhioHealthACID FAST CULTUREACID FAST CULTURE Lab Routine 06/18/2025 11:10 AM EDTNOMS Healthcare Bacteria identified in Blood by CultureBlood Culture Aerobic/Anaerobic Microbiology Routine 01/18/2022 9:05 PM EDTOhioHealth Work Phone: End: 31-25-2245QP of chest without contrastCT Chest Without Contrast Imaging Routine Community acquired pneumonia of left lower lobe of lung 1Occurrences starting 11/08/2022 until 01/08/2023[facility] Work Phone: Comment on above:1 Occurrences starting 11/08/2022 until 01/08/2023Iron binding capacity [Mass/volume] in Serum or PlasmaAkron Children'S HospitalPatient EducationOhiohealth Grant Medical Center Ctr Work Phone: Patient referralOhiohealth Grant Medical Center Ctr Work Phone: Respiratory pathogens DNA and RNA panel - Nasopharynx by OREN with non-probe detectionAkron Children'S HospitalReticulocytes [#/volume] in BloodAkron Children'S HospitalReticulocytes/100 erythrocytes in [facility] HospitalTransfusion of red blood cellsTransfuse RBC STAT 09/11/2018 6:52 PM ESTOhioHealth End: 77-66-8243UbcsnurbuypxjjhXMYO ANKLE BRACHIAL INDEX Imaging Routine One Time for 1 Occurrences starting 05/10/2025 until 05/10/2025[facility] Work Phone: Comment on above:One Time for 1 Occurrences starting 05/10/2025 until 05/10/2025 End: 18-43-7729C-ray of left ankleXR Ankle Left 3+ Views (Standard) Routine Critical lower limb ischemia 1 Occurrences starting 09/20/2018 until 09/20/2019 OhioHealthComment on above:1 Occurrences starting 09/20/2018 until 09/20/2019X- ray of left ankleXR Ankle Left 3+ Views (Standard) Routine Critical lower limb ischemia 09/20/2018 3:30 PM ESTOhioHealth End: 26-86-0361K-ray of left footXR Foot Left 3+ Views [...] prosthetic joint, subsequent encounter 11/24/2021 9:21 AM [facility] SystemXR Pelvis and Hip - right ViewsXR HIP WITH PELVIS RIGHT Imaging Routine Hx of total hip arthroplasty, right 01/12/2022 8:59 AM EDTAvita Health SystemXR Pelvis and Hip - right ViewsXR HIP WITH PELVIS RIGHT Imaging Routine Hx of total hip arthroplasty, right 07/14/2022 10:44 AM [facility] - right ViewsXR HIP WITH PELVIS RIGHT Imaging Routine Hx of total hip arthroplasty, right 08/10/2023 10:49 AM [facility] Immunizations Immunization DateImmunizationNotesCare LedikjqcBpocmaab02-95-1846vccwpgoip, high dose seasonal, preservative-freeFlash Lovelace MD Work Phone: [facility] HospitalOwqlhcptga60-90-4640Pfmjkwyho, High-dose Seasonal, Quadrivalent, Preservative FreeFlash Lovelace MD Work Phone: [facility] HospitalLtewpybmgi86-01-1337tyborlvbw virus vaccine, unspecified formulationLudivina Garcia SHHdhaXfjkco03-27-4925udhosieqy virus vaccine, unspecified formulationJENNIFER JAY [facility]10-10-2023Influenza, High-dose Seasonal, Quadrivalent, Preservative Free Zoë King PA Work Phone: [facility] HospitalUhdsitpgpz58-78-3642azfehyouq virus vaccine, unspecified formulationJENNIFER JAY [facility]10-04-2022Influenza, High-dose Seasonal, Quadrivalent, Preservative Free Zoë King PA Work Phone: [facility] HospitalVwgoanefvo84-00-8119TIOM-ZlM-6 (COVID-19) pKPF- 3593 vaccineJENNIFER JAY [facility]10-25-2021influenza virus vaccine, unspecified formulationJENNIFER JAY [facility]10-25-2021influenza, high dose seasonal, preservative-freeZoë King PA Work Phone: [place] [address]Egbbfqzyxs13-60-3679HUKD-NaV-1 (COVID-19) mRNA- 1273 vaccineJENNIFER JAY [facility]02-11-2021pneumococcal polysaccharide vaccine, 23 valentJENNIFER JAY [facility]02-03-2021SARS-CoV-2 (COVID-19) mRNA-1273 vaccineJENNIFER JAY [facility] HospitalComment on above:Result Comment: 2023-12-26: RUY8141-13-4233zvzazyykt virus vaccine, unspecified formulationJENNIFER JAY [facility]10-06-2020influenza, high dose seasonal, preservative-freeKaren Hemmer PA Work Phone: [facility] HospitalQvyqbdqgax92-22-0954engzdenim virus vaccine, unspecified formulationJENNIFER JAY [facility]10-01-2020influenza, seasonal, injectableKaren Hemmer PA Work Phone: [facility] HospitalFreavdwpzz34-93-6140gmeuhyopdcvf conjugate vaccine, 13 valentJENNIFER JAY [facility]02-03-2020tetanus toxoid, reduced diphtheria toxoid, and acellular pertussis vaccine, adsorbedJENNIFER JAY [facility]10-22-2019influenza virus vaccine, unspecified formulationJENNIFER JAY [facility]10-22-2019Seasonal trivalent influenza vaccine, adjuvanted, preservative freeTogus VA Medical CenterHxvhvxMbdnOsfexg45-95-9674rmpuvmrwx virus vaccine, unspecified formulationJENNIFER JAY [facility]10-10-2018influenza, high dose seasonal, preservative-freeTuscarawas HospitalDforUhiymv35-42-8457Vqnlsacyz, High-dose Seasonal, Quadrivalent, Preservative FreeZoë BROWER Work Phone: [facility] HospitalEcevcwxjcz90-41-8665agkwmefxv virus vaccine, unspecified formulationJENNIFER JAY [facility]09-25-2017influenza, injectable, quadrivalent, contains preservativeTogus VA Medical CenterRyvmakDtvrZuwqei45-16-8455irabuymgw, injectable, quadrivalent, preservative free Zoë BROWER Work Phone: [facility] HospitalNyjyveyfka48-73-3561fqvjhsjcf virus vaccine, unspecified formulationJENNIFER JAY [facility]09-21-2015influenza, high dose seasonal, preservative-freeTuscarawas HospitalCidvBptieu28-35-4135vvoazjznfmqz conjugate vaccine, 13 valentJoy Pike Community Hospitalpneumococcal vaccine, unspecified formulationMohsen Sarabia MD Work Phone: [facility] Hospitalpneumococcal vaccine, unspecified formulationUri Voss DO Work Phone: [facility] Payers DatePayer CategoryPayerPolicy [id number] 2024Self-pay [id number] Health [id number] 2018MedicareHUMANA MANAGED MEDICARE HUMANA MCR ADVANTAGE CHOICE PPO xxxxxxxxx 2017-Presentxxxxxxxxx [id number] 2018MedicareHUMANA MANAGED MEDICARE HUMANA MCR ADVANTAGE CHOICE PPO [id number] 2017-[id number] 2018Medicare [id number] 2018Medicare (Managed Care) [id number] 2018Medicare PPO [id number] [id number] 2.0.1.392798.3.579.2.92995-73-9541Rconrkv56265300 2..1.497992.3.579.2.72827-42-0862Mwqvhwe932458009 2.0.1.511538.3.579.2.81131-24-9470Motxyvz08019782 2.0.1.312788.3.579.2.69917-60-6748Tnimqcg6310069 2.840.1.698291.3.579.2.34812-52-7083Hgxvrnv9772203 2.160.1.486966.3.579.2.74893-70-8015Ordryiz8558316 2.0.1.655096.3.579.2.04616-49-4915Ufmsdxj3736377 2.0.1.081191.3.579.2.69836-92-6888Hjxkxnu45088686 2.16.840.1.445202.3.579.2.72353-09-2947Pdlurfe57257291 2.16.840.1.079707.3.579.2.14688-58-7669Ptewsqf24563833 2.16.840.1.505439.3.579.2.10337-58-8416Rapuemf31243270 2.16.840.1.626454.3.579.2.91896-53-3003Wpynbmt490430920 2.16.840.1.370828.3.579.2.23401-24-1041Nvnifas441444486 2.16.840.1.218492.3.579.2.29556-80-9234Fkkogex028830511 2.16840.1.936944.3.579.2.01573-17-9958Hytcbvo726147859 2.16.840.1.668060.3.579.2.85729-43-4291Uyqmgri180303553 2.16.840.1.995411.3.579.2.11772-99-7364Vawwnnc230677276 2.16.840.1.614600.3.579.2.04262-25-8419Vhnifvc334548226 2.16.840.1.073992.3.579.2.52927-63-5966Punryrm165926976 2.16.840.1.959873.3.579.2.80609-98-7640Pgwzpes434500534 2.16.840.1.573557.3.579.2.74747-47-7517Mmwwecq593823710 2.16.840.1.396769.3.579.2.84248-86-3652Xtcrwde00657359 2.16.840.1.713644.3.579.2.883663-86-6218Amltgzu54749302 2.0.1.672531.3.579.2.098757-51-8007Nwxaeen37235450 2.160.1.244813.3.579.2.275030-09-7090Jsfjwwa61565622 2.0.1.451746.3.579.2.394857-98-7388Vkrarco35515538 2.0.1.516822.3.579.2.693648-89-0383Uxsispf81765805 2..1.547942.3.579.2.907617-13-1536Gcerknn16670438 2..1.550093.3.579.2.717836-16-7459Fzfrbey5426432 2..1.445152.3.579.2.691172-16-7562Iaicnfb9958776 2..1.835078.3.579.2.104798-44-5144Chmveub0311938 2..1.393090.3.579.2.596468-10-8706Txutong245849612 2..1.808859.3.579.2.83942-15-4450Anxsmcw178143949 2..1.636242.3.579.2.903UnknownHCAP/HFA/FAP LiwjxxA356058 9526791c-8wt7-45g6-f18r-4r10ie2lh7x3Tckpnwt21523377 2.0.1.514115.3.579.2.375Qwzbptm92950478 2.0.1.868820.3.579.2.531 Qleqjjy10555463 2.0.1.957611.3.579.2.649Loyfbrk81859539 2.16.840.1.301017.3.579.2.531 Social History DateTypeDetailFacilityStart: 09-10-2018 End: 89-03-1555Nftnxqo smoking status NHISNever smokerSalem City Hospitaltart: 54-67-9581Xpz Assigned At BirthNot on fileOhioHealthStart: 10-09-2019 End: 43-24-4614Flwijoq intakeEx-drinker (finding)OhioHealthStart: 10-21-2019 End: 31-34-4701Hzoakoo use and exposureNever usedOhioHealthStart: 11-24-2021 End: 68-68-0275Wzqhakb intakeCurrent non-drinker of alcohol (finding)[facility] Hospitaltart: 12-11-2021 End: 11-07-7214Xfpptedp to SARS-CoV-2 (event)Not sureOhioHealthStart: 09-04-2018 End: 33-23-5423Skkvjiqvi pack-yearsOhioHealthStart: 11-30-2022 End: 89-94-5695Aae [facility]igned At [facility]ertart: 63-77-5080Lck Assigned At [facility] Centertart: 22-87-2472Uoesyoo smoking statusNeverChildren's Hospital for Rehabilitationtart: 09-66-3179Cglwwi identityIdentifies as male gender (finding)OhioHealthStart: 17-14-0665Jzkcdc orientationHeterosexual (finding)OhioHealthStart: 04-15-2023 Alcohol CommentCoffee 1-2 cups [...] before (I/we) got money to buy more.Never trueGolden Valley Memorial HospitalTobacco smoking status NHISTobacco smoking consumption unknownWYANDOT Work Phone: start: 94-75-8110Xcdibjk SDOH Alcohol Frequency1 [facility] Work Phone: start: 05-35-1974Ovyfrvc SDOH Alcohol Std Drinks0 [facility] HOSPITALCine-[facility] Work Phone: How often do you need to have someone help you when you read instructions, pamphlets, or other written material from your doctor or pharmacy [SILS]RarelyLDS HOSPITAL HealthcareStart: 25-92-9895UtsKvcc (finding)[facility] Hospitaltart: 05-06-2025 End: 24-66-3642LHQQ Follow upSDOH Follow upSt. Anthony'S Hospital Work Phone: Medical Equipment Procedure CodeEquipment CodeEquipment Original TextEquipment IdentifierDates Hemostat 2 X 4in Surgicel Fibrillar - [id number]: 38-77-3544Kbaaoodv 2 X 4in Surgicel Fibrillar - [id number]: 34-67-3172Jhstcxis 2 X 4in Surgicel Fibrillar - [id number]: 61-64-9540Wanlyfus 2 X 4in Surgicel Fibrillar - [id number]: 28-61-1285Hgkygrro 2 X 4in Surgicel Fibrillar - [id number] Start: 37-29-9308Ismdjech 2 X 4in Surgicel Fibrillar - [id number]: 70-28-8486Tptlvods 2 X 4in Surgicel Fibrillar - [id number]: 09-07-2018 Hemostat 2 X 4in Surgicel Fibrillar - [id number]: 67-75-0352Rpnopxej 2 X 4in Surgicel Fibrillar - [id number]: 69-40-3962Igbiyunb 2 X 4in Surgicel Fibrillar - [id number]: 65-15-3477Hcmwbqtu 2 X 4in Surgicel Fibrillar - [id number]: 31-97-6400Ljvttkcw 2 X 4in Surgicel Fibrillar - [id number] Start: 46-49-1592Prippfbe 2 X 4in Surgicel Fibrillar - [id number]: 22-85-5827Wagubsxa 2 X 4in Surgicel Fibrillar - [id number]_frpLxyri: 60-51-0956Guqipqkm 2 X 4in Surgicel Fibrillar - [id number]: 09-07-2018 Hemostat 2 X 4in Surgicel Fibrillar - [id number]: 41-36-8144Vocjibmx 2 X 4in Surgicel Fibrillar - [id number]: 47-74-5494Ewseaspf 2 X 4in Surgicel Fibrillar - [id number]: 47-63-0442Fcsacpcd Altrx Polyethylene Acetabular Liner Neutral 36mm Id 62mm [id number]_jpwWfcey: 18-24-8020Behwk-Seal 6f Vip - [id number]()[id number]()[id number](10)[id number], [id number]_imp FDAStart: 27-65-7794Jgatvai Lv 1x40 Single - [id number]_sksIzvkh: 30-54-4937Jvgmnapg 2 X 4in Surgicel Fibrillar - [id number]_qkeQwdng: 05-92-5556Tdcrdaj 10ml Hemostatic Matrix Fast Prep Floseal W/Recothrom - [id number] ()[id number]()[id number](10)[id number], [id number]_imp FDAStart: 03-17-2025 [place] Gription Acetabular Shell Sector 62mm Uj754581_jxnBqlcp: 07-15-2021 Biolox Delta Ceramic Femoral Head +1.5 36mm Jaki 08/10 Ggyfo159014_hdxTrowp: 23-19-0043Mxjujn Femoral Stem 08/10 Taper Size 7 Mi 133mm920454_impStart: 37-41-3287Tnsjhhqfbfzyb Stem Centralizer 12.0mm Xiohgkmk027665_xmzYihrb: 45-58-7647Cdscd Flex 5z001h222 - [id number] ()[id number]()[id number])[id number], 559778_imp FDAStart: 68-61-0490Dedzo Flex 4v284b048 - [id number]()[id number], 559780_imp FDA Start: 91-82-6758Pbpekdb R 1 X 40 - [id number]_tqtShjow: 07-15-2021 Goals DatePatient GoalDesired Activity/StateComment on above: [...] to promote return to PLOF. Functional Status QggdNpvjygsmtpWghzehZbllyhvf78-15-0390Vpvxobb Health Questionnaire 2 item (PHQ- 2) [Reported][facility] HospitalGabevfewgi65-65-1118Ybdddms Health Questionnaire 2 item (PHQ- 2) [Reported][facility] HospitalRsbaoidjqx40-83-0670Mut you deaf, or do you have serious difficulty hearingNo 05/09/2025 11:00 AM EDT Lexi Renee RN [facility]09-12-2025Are you blind, or do you have serious difficulty seeing, even when wearing glassesNo 05/09/2025 11:00 AM EDT Lexi Renee RN [facility]09-12-2025Do you have serious difficulty walking or climbing stairsNo 05/09/2025 11:00 AM Lexi Beverly RN [facility]OS[facility]09-12-2025Do you have difficulty dressing or bathingNo 05/09/2025 11:00 AM EDT Lexi Renee RN [facility]09-12-2025 Because of a physical, mental, or emotional condition, do you have difficulty doing errands alone such as visiting a physician's office or shoppingNo 05/09/2025 11:00 AM EDLexi Espinosa, VAN [facility] 32-75-0776Zilfmzcznf statusPatient at BaselineSt. Anthony'S Hospital Work Phone: [phone]) [phone] Health Questionnaire 2 item (PHQ-2) [Reported][facility] HospitalCensjhebpr34-04-5515Bruthln Health Questionnaire 2 item (PHQ-2) [Reported][facility] HospitalKvyjjzkbku46-17-6365Fwzvzeu Health Questionnaire 2 item (PHQ-2) [Reported][facility] HospitalAjhkkkxame15-85-1688Gzjeebc Health Questionnaire 2 item (PHQ-2) [Reported][facility] HospitalGazijwapea82-57-9743Jtvjzvz Health Questionnaire 2 item (PHQ-2) [Reported][facility] HospitalLcwpyfgrbs00-18-6976Ilgxqnk Health Questionnaire 2 item (PHQ-2) [Reported][facility] HospitalOvyefskgid03-78-2726Rikfwcdmty StatusN/AExec[facility]rology of [facility]04-25-2023Functional StatusN/AExec[facility] of [facility] Mental Status IaahHsjxmkpbxvHnxpdfXxtbrhei81-70-3451Hsyscxt of a physical, mental, or emotional condition, do you have serious difficulty concentrating, remembering, or making decisionsNo 05/09/2025 11:00 AM EDLexi Espinosa RN [facility]09-05-2025Cognitive functionCognitive Status Patient at BaselineSt[facility] Work Phone: Clinical Notes 11-24-2021 to 06-10-2025 Note Date & YuxmGxfnVdngpemq89-20-9304 History of Present illness Narrative* Flash Lovelace [...] (Tessalon) 100 MG capsule Three times daily Yznypqw-Zuyfbnrssmf-Adyottdiza (Breztri Aerosphere) 160-9-4.8 MCG/ACT aerosol Inhale 1 [...] Do you have a medical power of personal injury attorney?: Yes Objective : BP 132/68 Pulse [...] Orders Flu vaccine, high dose seasonal, PF (USS122) (Fluzone High Dose) (Completed) Orders Placed This Encounter Procedures Flu vaccine, high dose seasonal, PF (MFH362) (Fluzone High Dose) Lipid panel Standing Status: [...] to screen for Anuerysm documented in this encounterGolden Valley Memorial HospitalYddprnfvtv66-84-5719 Telephone encounter Note* Telephone Encounter - Megan Douglass - 05/29/2025 10:32 AM EDT Patient called and left a message stating that he needs his pain medication called into the pharmacy - specifically he said the 5-325 but I'm not seeing that on his med list. Please advise [facility] HospitalDdzoqbxxtw47-23-9665 Miscellaneous Notes* Telephone Encounter - Megan Douglass - 05/29/2025 10:32 AM EDT Patient called and left a message stating that he needs his pain medication called into the pharmacy - specifically he said the 5-325 but I'm not seeing that on his med list. Please advise documented in this encounterGolden Valley Memorial HospitalElscoaphvi40-41-8049 History of Present illness Narrative* Elaine Saab LPN - 05/26/2025 3:11 PM EDT Spoke with pt for weekly monitoring. Pt sates he finished steroid 05/25 and still has cough and still feels like it is in his chest. Pt asks if PCP will start him on another antibiotic. He shares he had culture done is [facility] to determine which antibiotic was needed to [...] concerns at this time. documented in this encounterGolden Valley Memorial HospitalEssntwdydj15-53-7988 History of Present illness Narrative* Flash Lovelace [...] Flowsheet Row Patient Outreach from 05/14/2025 in [facility] Identiv with Elaine Saab LPN Hospital Information ED, Hospital or Shelter Facility Discharge? Hospital Patient has been contacted within two business days of discharge Yes Diagnosis Hemoptysis Discharge Date 05/13/25 Discharged To: Home Setting Discharge Hospital [facility] [[facility]] Engagement Call Start Time 1109 Admission Date [...] [facility] Cellulitis LLE Colon polyps 2011 Critical lower limb ischemia ([facility]) 09/04/2018 Last Assessment & Plan: Pt s/p LLE angiogram with Dr Hahn who feels that the pt has no further endovascular options. He has consulted Dr. Sarabia for a possible tibial bypass. 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 Failure - [facility] History of being hospitalized [place] - [facility] 07/15/2021-07/16/2021 History of coronary angiogram [...] incomplete bowel prep Diverticulosis Dr. Rowe at [facility] COLONOSCOPY W/ POLYPECTOMY 2011 CORONARY ARTERY BYPASS [...] HISTORY 04/25/[address] Hahn IN MEDICATION MANAGEMENT 11/2020 Multi resistant Strep Pneumonia, [...] mouth with water after use Relevant Medications Iupqzbf-Vbmtckuyaad-Dqooogszlg (Trueffect) 160-9-4.8 MCG/ACT aerosol No follow-ups on file. documented in this encounterGolden Valley Memorial HospitalRhgkcyueuw65-33-2966 History of Present illness Narrative* Elaine Saab [...] Flowsheet Row Patient Outreach from 05/14/2025 in [facility] with Elaine Saab LPN Hospital Information ED, Hospital or Shelter Facility Discharge? Hospital Patient has been contacted within two business days of discharge Yes Diagnosis Hemoptysis Discharge Date 05/13/25 Discharged To: Home Setting Discharge Hospital [facility] [[facility]] Engagement Call Start Time 1109 Admission Date [...] AM EDT Refill sent. documented in this encounterGolden Valley Memorial HospitalBrdrendooq61-18-1663 Hospital course Narrative * Rafaela Garcia MD [...] during his recent hospital stay at [facility]. As you may know, Mr. Powell [...] the patient's records can be obtained via [employer] at [email or web address] It has been my pleasure participating in [...] Patient Instructions on Discharge No future appointments. [address] [address] Flash Lovelace MD [address] [place] [address] Schedule an appointment as soon as possible [...] Your Medications These medications were sent to [facility] [id number] [place] [address] - [address] [facility] [address] [facility] [address] predniSONE 10 MG TABS documented in this encounterOSU [facility] Hospital course Narrative* Rafaela Garcia MD - [...] during his recent hospital stay at [facility]. As you may know, Mr. Powell [...] the patient's records can be obtained via [employer] at [email or web address]/ It has been my pleasure participating in [...] Patient Instructions on Discharge No future appointments. [address] [address] Flash Lovelace MD [address] [place] [address] Schedule an appointment as soon as possible [...] Your Medications These medications were sent to [facility] [id number] [place] [address] - [address] [facility] [address] [facility] [address] [place] [place] [place] [address] predniSONE 10 MG TABS documented in this encounterMetroHealth [facility] History of Present illness Narrative* Andreea Carpenter RCP - 05/13/2025 9:54 AM EDT Final Discharge Planning CM met with patient at bedside and patient was agreeable to [facility] and using [facility] care. Final Discharge Planning Discharge Disposition: Home with Home Health Selected Continued Care - Admitted Since 05/09/2025 Home Medical Care Coordination complete. Service Provider Services Address Phone Fax Patient Preferred [facility] Home Rehabilitation [address] [place] [phone] -- Community Agency Name(s) For Handoff: [facility] Phone For Handoff: [phone] Fax For Handoff: [phone] Plan Plan: Patient will discharge home with [facility]. Patient/Family In Agreement With Plan: yes Alejandra Grey (Teresa), HEAT ENGINEERING TEACHER, [facility] Clinical Explosives Engineer E #[phone] * Sakshi Medina PTA - 05/13/2025 9:03 [...] Assessment/Intervention: Transfer Assessment/Intervention: Sit to Stand Transfer [place] Level: Sit->Stand: supervision Assistive Device: Sit->Stand: front-wheeled walker Skilled Rationale: Verbal cues, Initiation and execution of task Skilled Intervention/Details: Sit->Stand: Pt tolerates x2 from EOB and x1 from chair without LOBwith use of UEs. Stand to Sit Transfer [place] Level: Stand->Sit: supervision Assistive Device: Stand->Sit: front-wheeled walker Skilled Rationale: Verbal cues, Initiation and execution of task Skilled Intervention/Details: Stand->Sit: x1 to bed and x2 to chair Gait/Functional Mobility Assessment/Intervention: Gait Assessment Providence Level: Gait: supervision Assistive Device: Gait: front-wheeled [...] control of AD Stairs Assessment/Intervention: Stairs Assessment [place] Level: Stair Negotiation: stand-by assist Assistive Device: Stair Negotiation: jonathan walker Number of stairs: 1 (x2) Stairs Skilled Rationale: verbal, general safety Skilled Intervention/Details - Stairs: Pt declines stair training initially but with encouragement he performs stepping up on a curb step x2 with vc for stepping up with R and down with left (backed down) Outcome Score(s): CURRENT [facility] Basic Mobility Inpatient Short Form Turning over in bed: 4 - No Assistance Moving from lying on back to sittin - No Assistance Moving to and from bed to chair: 3 - A Little Assistance Sitting/standing from chair: 3 - A Little Assistance Walk in hospital room: 3 - A Little Assistance Climbing 3-5 steps with a railin - A Little Assistance CURRENT [facility] Mobility Raw Score: 20 CURRENT [facility] Mobility Functional Limitation: 35.83% Impaired in Basic [...] Note We saw Mr. Tristin Bazan Sherry Sr. in follow-up on 05/12/2025. Impression: Hemoptysis PNA [...] call with questions. Beena Nguyen MD MPH [phone] * Rhonda Yoon, COMMUNITY SERVICE OFFICER COORDINATOR-PEOPLESOFT PROGRAMMER - 05/12/2025 3:00 PM EDT Images from [...] NEGATIVE 08/01/2018 BACTERIAURIN NEGATIVE 08/01/2018 Microbiology: [facility]- [facility] 05/02/25 - RVP - rhinovirus [...] ID ATTENDING: Dr Jeane APRN, MS, Adult CRUDE TESTER-C Infectious Diseases Pager [phone] Cosigned by Fidel Nguyen MD, PhD at 05/12/2025 4:46 PM EDT Associated attestation - Fidel Nguyen MD, PhD - 05/12/2025 4:46 PM EDT ID Staff: I have interviewed and examined patient independently (05-12-25) and have discussed case with the ID CRUDE TESTER. In addition, the chart, labs, micro, radiology, and vitals reviewed. I agree with thefindings and recommendations as documented above by Rhonda Yoon CNP which reflect our combined clinical decision making. Fidel Nguyen MD, PhD Division of Infectious Diseases [facility] * Rafaela Garcia MD - 05/12/2025 [...] Acute hypoxic resp failure - resolved At [facility] requiring o2. 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 Mobility Assessment/Intervention: Supine to Sit Mobility [place] Level: Supine->Sit: stand-by assist Bed Features/Set-up: Supine->Sit: Head of bed elevated, Use of bed rail Skilled Rationale: Verbal cues, Initiation and execution of task Skilled Intervention/Details: Supine->Sit: x1 to EOB Sit to Supine Mobility [place] Level: Sit->Supine: not tested Skilled Intervention/Details: Sit->Supine: pt in chair at end of session Transfer Assessment/Intervention: Sit to Stand Transfer [place] Level: Sit->Stand: contact guard assist Assistive Device: Sit->Stand: gait belt, front-wheeled walker Skilled Rationale: Verbal cues, Initiation and execution of task Skilled Intervention/Details: Sit->Stand: x2 from EOB and x1 from chair Stand to Sit Transfer [place] Level: Stand->Sit: contact guard assist Assistive Device: Stand->Sit: gait belt, front-wheeled walker, armed chair, rail Skilled Rationale: Verbal cues, Initiation and execution of task Skilled Intervention/Details: Stand->Sit: x1 to bed and x2 to chair with cues for safety Gait/Functional Mobility Assessment/Intervention: Gait Assessment [place] Level: Gait: contact guard assist Assistive Device: [...] turning with AD. Stairs Assessment/Intervention: Stairs Assessment [place] Level: Stair Negotiation: not tested Outcome Score(s): CURRENT [facility] Basic Mobility Inpatient Short Form Turning over [...] railin - A Lot of Assistance CURRENT -[facility] Mobility Raw Score: 18 CURRENT [facility] Mobility Functional Limitation: 46.58% Impaired in Basic [...] PT Goals Plan of Care by Sakshi Meidna PTA at 05/12/2025 8:18 AM Version 1 [...] Garcia MD - 05/11/2025 12:57 PM EDT [facility] Medicine Progress Note Patient: Tristin [...] Acute hypoxic resp failure - resolved At [facility] requiring o2. 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 toe per recent MRI (see care everywhere) - appreciate wound and podiatry - He will discuss with his outpatient suit attendant on Monday what he wants to do [...] 05/11/2025 Signed, Rafaela Garcia MD * Yris Martinez [facility] - 05/11/2025 12:48 PM EDT 05/11/25 [...] Na/K+/Phos/Mg/Ca: 138/3.6/--/--/-- (05/11 353) Bun/Creat/Cl/CO2/Glucose: 20/0.89/106/22/-- (05/11 5781) I have personally reviewed and interpreted the [...] Critical Care Medicine Cosigned by BOLA Caceres [facility] at 05/11/2025 11:33 AM EDT Associated attestation - Carmel Rsoales MB [facility] - 05/11/2025 11:33 AM EDT Pulmonary Attending [...] participate inMr. Powell's care. Carmel Rosales MD, [facility] Machine Skiver Of Clinical Medicine Pulmonary and Critical Care Pager #[phone] Attending Physician 05/11/2025 11:33 AM * Monica Martin RPH - 05/10/2025 6:34 PM EDT Department of Pharmacy Pharmacokinetics Progress Note Patient: Tristin Powell Room/Bed: [facility] Assessment and Plan: Based upon [...] further questions. Name: Monica Martin RPH Phone: [phone] Date/Time: 05/10/2025 6:35 PM * Rafaela Garcia MD - 05/10/2025 12:30 PM EDT [facility] Medicine Progress Note Patient: Tristin [...] Acute hypoxic resp failure - resolved At [facility] requiring o2. 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 is [...] Critical Care Medicine Cosigned by BOLA Caceres [facility] at 05/10/2025 1:05 PM EDT Associated attestation - Carmel Rosales MB [facility] - 05/10/2025 1:05 PM EDT Pulmonary Attending [...] participate inMr. Powell's care. Carmel Rosales MD, [facility] Machine Skiver Of Clinical Medicine Pulmonary and Critical Care Pager #[phone] Attending Physician 05/10/2025 1:05 PM * Dexter Espinoza - 05/09/2025 1:05 PM EDT Department of Pharmacy Admission Medication Reconciliation Note Patient: Tristin Powell Room/Bed: [facility]/A I have reviewed the patient's [...] further questions. Name: Dexter Espinoza Phone #: [phone] Date/Time: 05/09/2025 1:05 PM Time Spent: 45 minutes Cosigned by Sirena Carpenter RP at 05/09/2025 1:45 PM EDT Associated attestation - Sirena Carpenter RPH - 05/09/2025 1:45 PM EDT Department of Pharmacy Admission Medication Reconciliation Note Patient: Tristin Powell Room/Bed: [facility]/ Updated STAFF APPRAISER Med List: Prior to Admission Medications Prescriptions [...] reviewed the home medication list with the Billing And Quality Technician. The home medication list status is: complete and home med list marked as reviewed . All changes to the home medication list have been updated in IHIS. Please feel free to contact me with any further questions. Name: Sirena Carpenter [facility] Phone #: [phone] Date/Time: 05/09/2025 1:44 PM * Rafaela Garcia [...] Acute hypoxic resp failure - resolved At [facility] requiring o2. 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 a [...] Signed, Rafaela Garcia MD * Andreea Carpenter [employer] - 05/09/2025 12:12 PM EDT Discharge Planning [...] Yes Name and Contact information: Michael Marshall ([facility]) [phone] Would you like to add additional adult children?: Yes Name and Contact information: Amina Barr Name and Contact information: Richard Powell Advanced Care Planning Has the patient completed Advance Directives?: Completed, Available in Medical Record Reviewed for accuracy with patient?: Yes Advanced Directives on File: HealthCare Power of 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 Medication Management Does the patient have prescription insurance coverage? : Yes Is the patient on Anticoagulation? : Yes- [facility] [id number] [place] [address] - [address] [facility] [address] [facility] [address] Living Environment and Support System Is the patient from a facility or chcf?: No Living Environment: House Patient Caregiving Responsibilities: [...] at home? : No Alejandra Grey (Teresa), HEAT ENGINEERING TEACHER, CCM Clinical Explosives Engineer \ * Deena Jacobs OT - 05/09/2025 [...] Level of Function Details: 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 Denies recent falls. IADL History IADLs: independent Primary Language: [place] Objective/Observation: Vitals/Vitals Responses to Treatment: Vital signs [...] Intervention/Details: Pt dons soft boot (with non-slip sex therapist) on L foot for mobility despite education [...] performance Mobility Assessment: Supine to Sit Mobility [place] Level: Supine->Sit: contact guard assist Bed Features/Set-up: Supine->Sit: Head of bed elevated, Use of bed rail Skilled Rationale: Positioning, Verbal cues, Initiation and execution of task Skilled Intervention/Details: Supine->Sit: x1 to EOB with increased time Sit to Supine Mobility [place] Level: Sit->Supine: stand-by assist Bed Features/Set-up: Sit->Supine: Head of bed elevated Skilled Rationale: Verbal cues, Initiation and execution of task Skilled Intervention/Details: Sit->Supine: x1 from EOB Transfer Assessment: Sit to Stand Transfer [place] Level: Sit->Stand: contact guard assist Assistive Device: Sit->Stand: gait belt Skilled Rationale: Verbal cues, Initiation and execution of task, Cues for increased safety Skilled Intervention/Details: Sit->Stand: x1 from EOB impulsively and requires cues for line management/safety Stand to Sit Transfer [place] Level: Stand->Sit: contact guard assist Assistive Device: Stand->Sit: gait belt Skilled Rationale: Verbal cues, Controlled descent for sitting, Technique of activity, Positioning Skilled Intervention/Details: Stand->Sit: x1 to EOB with cues for positioning Functional Mobility: Functional Mobility [place] Level: Functional Mobility/Gait: contact guard assist Assistive [...] currently uses wheelchair?: No Outcome Score(s): CURRENT [facility] Daily Activity Inpatient Short Form Putting on/Taking Off Lower Body Clothin - A Little Assistance Bathin - A Little Assistance Toiletin - A Little Assistance Putting on/Taking Off Upper Body Clothin - A Little Assistance Groomin - A Little Assistance Eatin - No Assistance CURRENT [facility] Activity Raw Score: 19 CURRENT [facility] Activity Functional Limitation/Modifier: 42.80% Currently Impaired in Daily Activity- CK CURRENT [facility] Basic Mobility Inpatient Short Form Turning over [...] a railin - A Little Assistance CURRENT [facility] Mobility Raw Score: 18 CURRENT [facility] Mobility Functional Limitation: 46.58% Impaired in Basic [...] PERIPHERAL N/A 08/09/2018 Laterality: N/A; Surgeon: Isaias Vgot MD; Location: [facility] [...] Level of Function Details: 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 Denies [...] intact Mobility Assessment: Supine to Sit Mobility [place] Level: Supine->Sit: contact guard assist Bed Features/Set-up: Supine->Sit: Head of bed elevated, Use of bed rail Skilled Rationale: Verbal cues, Initiation and execution of task Skilled Intervention/Details: Supine->Sit: Increased time to complete Sit to Supine Mobility [place] Level: Sit->Supine: stand-by assist Bed Features/Set-up: Sit->Supine: [...] room Transfer Assessment: Sit to Stand Transfer [place] Level: Sit->Stand: contact guard assist Assistive Device: Sit->Stand: gait belt Skilled Rationale: Verbal cues, Initiation and execution of task Skilled Intervention/Details: Sit->Stand: Pt impulsively stands from EOB w/ repeat cueing for line safety Stand to Sit Transfer [place] Level: Stand->Sit: contact guard assist Assistive Device: Stand->Sit: gait belt Skilled Rationale: Sequencing, Verbal cues, Hand placement, Controlled descent for sitting, Technique of activity, Initiation and execution of task, Cues for increased safety Skilled Intervention/Details: Stand->Sit: X1 EOB Gait/Functional Mobility: Gait Assessment [place] Level: Gait: contact guard assist Assistive Device: [...] currently uses wheelchair?: No Outcome Score(s): CURRENT [facility] Basic Mobility Inpatient Short Form Turning over [...] a railin - A Little Assistance CURRENT [facility] Mobility Raw Score: 18 CURRENT [facility] Mobility Functional Limitation: 46.58% Impaired in Basic Mobility Assessment & Plan: Patient was admitted for 85 y.o. male with a past medical history of CAD x7 stents, PAD s/ SFA-peroneal bypass 02/2025, left metatarsal amputation, chronic R foot ulcer, HTN, HDL, BPH who presents as a transfer from [facility] due to hemoptysis. and seen for therapy [...] Physical Therapy [facility]. [facility] History of Present illness Narrative* Andreea Carpenter RCP - 05/13/2025 9:54 AM EDT Final Discharge Planning CM met with patient at bedside and patient was agreeable to [facility] and using [facility]. Final Discharge Planning Discharge Disposition: Home with Home Health Selected Continued Care - Admitted Since 05/09/2025 Home Medical Care Coordination complete. Service Provider Services Address Phone Fax Patient Preferred [facility] Home Rehabilitation [address] [place] [address] [phone] -- Community Agency Name(s) For Handoff: [facility] Phone For Handoff: [phone] Fax For Handoff: [phone] Plan Plan: Patient will discharge home with [facility]. Patient/Family In Agreement With Plan: yes Alejandra Grey (Teresa), HEAT ENGINEERING TEACHER, [facility] Clinical Explosives Engineer [facility] #[phone] * Sakshi Medina PTA - 05/13/2025 9:03 [...] Assessment/Intervention: Transfer Assessment/Intervention: Sit to Stand Transfer [place] Level: Sit->Stand: supervision Assistive Device: Sit->Stand: front-wheeled walker Skilled Rationale: Verbal cues, Initiation and execution of task Skilled Intervention/Details: Sit->Stand: Pt tolerates x2 from EOB and x1 from chair without LOBwith use of UEs. Stand to Sit Transfer [place] Level: Stand->Sit: supervision Assistive Device: Stand->Sit: front-wheeled walker Skilled Rationale: Verbal cues, Initiation and execution of task Skilled Intervention/Details: Stand->Sit: x1 to bed and x2 to chair Gait/Functional Mobility Assessment/Intervention: Gait Assessment [place] Level: Gait: supervision Assistive Device: Gait: front-wheeled [...] control of AD Stairs Assessment/Intervention: Stairs Assessment [place] Level: Stair Negotiation: stand-by assist Assistive Device: Stair Negotiation: jonathan walker Number of stairs: 1 (x2) Stairs Skilled Rationale: verbal, general safety Skilled Intervention/Details - Stairs: Pt declines stair training initially but with encouragement he performs stepping up on a curb step x2 with vc for stepping up with R and down with left (backed down) Outcome Score(s): CURRENT [facility] Basic Mobility Inpatient Short Form Turning over in bed: 4 - No Assistance Moving from lying on back to sittin - No Assistance Moving to and from bed to chair: 3 - A Little Assistance Sitting/standing from chair: 3 - A Little Assistance Walk in hospital room: 3 - A Little Assistance Climbing 3-5 steps with a railin - A Little Assistance CURRENT [facility] Mobility Raw Score: 20 CURRENT [facility] Mobility Functional Limitation: 35.83% Impaired in Basic [...] have readand agree with this note. Maggy Almaraz PT * Beena Nguyen MD - 05/12/2025 5:02 PM EDT Pulmonary Inpatient Consult Follow Up Note We saw Mr. Tristin Powell Sr. in follow-up on 05/12/2025. Impression: Hemoptysis PNA [...] call with questions. Beena Nguyen MD MPH [id number] * Rhonda Yoon, COMMUNITY SERVICE OFFICER COORDINATOR-PEOPLESOFT PROGRAMMER - 05/12/2025 3:00 PM EDT Images from [...] NEGATIVE 08/01/2018 BACTERIAURIN NEGATIVE 08/01/2018 [facility] - RVP - rhinovirus 05/02/25 - [...] ID ATTENDING: Dr Ching, AMELIA, MS, Adult CRUDE TESTER-C Infectious Diseases Pager [phone] Cosigned by Fidel Nguyen MD, PhD at 05/12/2025 4:46 PM EDT Associated attestation - Fidel Nguyen MD, PhD - 05/12/2025 4:46 PM EDT ID Staff: I have interviewed and examined patient independently (05-12-25) and have discussed case with the ID CRUDE TESTER. In addition, the chart, labs, micro, radiology, and vitals reviewed. I agree with thefindings and recommendations as documented above by Rhonda Yoon CNP which reflect our combined clinical decision making. Fidel Nguyen MD, PhD Division of Infectious Diseases [facility] * Rafaela Garcia MD - 05/12/2025 [...] Acute hypoxic resp failure - resolved At [facility] requiring o2. 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 Mobility Assessment/Intervention: Supine to Sit Mobility [place] Level: Supine->Sit: stand-by assist Bed Features/Set-up: Supine->Sit: Head of bed elevated, Use of bed rail Skilled Rationale: Verbal cues, Initiation and execution of task Skilled Intervention/Details: Supine->Sit: x1 to EOB Sit to Supine Mobility [place] Level: Sit->Supine: not tested Skilled Intervention/Details: Sit->Supine: pt in chair at end of session Transfer Assessment/Intervention: Sit to Stand Transfer [place] Level: Sit->Stand: contact guard assist Assistive Device: Sit->Stand: gait belt, front-wheeled walker Skilled Rationale: Verbal cues, Initiation and execution of task Skilled Intervention/Details: Sit->Stand: x2 from EOB and x1 from chair Stand to Sit Transfer [place] Level: Stand->Sit: contact guard assist Assistive Device: Stand->Sit: gait belt, front-wheeled walker, armed chair, rail Skilled Rationale: Verbal cues, Initiation and execution of task Skilled Intervention/Details: Stand->Sit: x1 to bed and x2 to chair with cues for safety Gait/Functional Mobility Assessment/Intervention: Gait Assessment [place] Level: Gait: contact guard assist Assistive Device: [...] turning with AD. Stairs Assessment/Intervention: Stairs Assessment [place] Level: Stair Negotiation: not tested Outcome Score(s): CURRENT [facility] Basic Mobility Inpatient Short Form Turning over [...] railin - A Lot of Assistance CURRENT -[facility] Mobility Raw Score: 18 CURRENT -[facility] Mobility Functional Limitation: 46.58% Impaired in Basic [...] Acute hypoxic resp failure - resolved At [facility] requiring o2. 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 toe per recent MRI (see care everywhere) - appreciate wound and podiatry - He will discuss with his outpatient suit attendant on Monday what he wants to do [...] 05/11/2025 Signed, Rafaela Garcia MD * Yris Martinez RCP - 05/11/2025 12:48 PM EDT 05/11/25 0828 [...] gross motor deficit. Lab Data: WBC/Hgb/Hct/Plts: 6.50/11.1/33.7/211 (09/14 0353) Na/K+/Phos/Mg/Ca: 138/3.6/--/--/-- (05/11 353) Bun/Creat/Cl/CO2/Glucose: 20/0.89/106/22/-- (05/11 353) I have personally reviewed and interpreted the following imaging studies with the pulmonary/critical care attending. Official reports included below: CT 05/06 Impression & Recommendations: Trsitin Powell Sr. is a 85 y.o. male [...] Critical Care Medicine Cosigned by BOLA Caceres [facility] at 05/11/2025 11:33 AM EDT Associated attestation - Carmel Rosales MB [facility] - 05/11/2025 11:33 AM EDT Pulmonary Attending [...] participate inMr. Powell's care. Carmel Rosales MD, [facility] Machine Skiver Of Clinical Medicine Pulmonary and Critical Care Pager #[phone] Attending Physician 05/11/2025 11:33 AM * Monica Martin, [facility] - 05/10/2025 6:34 PM EDT Department of Pharmacy Pharmacokinetics Progress Note Patient: Tristin Powell Room/Bed: 08/A Assessment and Plan: Based upon drug level [...] me with any further questions. Name: Monica Radha HILDA Martin Phone: [phone] Date/Time: 05/10/2025 6:35 PM * Rafaela Garcia [...] Acute hypoxic resp failure - resolved At [facility] requiring o2. 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 Powell's care. Carmel Rosales MD, [facility], [facility] Machine Skiver Of Clinical Medicine Pulmonary and Critical Care Pager #[phone] Attending Physician 05/10/2025 1:05 PM * Dexter Espinoza - 05/09/2025 1:05 PM EDT Department of Pharmacy Admission Medication Reconciliation Note Patient: Tristin Powell Room/Bed: [facility] I have reviewed the patient's home medication list with the following sources Patient recall with prompting, Patient recall without prompting, Dispense Report, and Pharmacy (Name [facility] ). I have also reviewed [...] further questions. Name: Dexter Espinoza Phone #: [phone] Date/Time: 05/09/2025 1:05 PM Time Spent: 45 minutes Cosigned by Sirena Carpenter RP at 05/09/2025 1:45 PM EDT Associated attestation - Sirena Carpenter RP - 05/09/2025 1:45 PM EDT Department of Pharmacy Admission Medication Reconciliation Note Patient: Tristin Powell Room/Bed: 0826/A Updated STAFF APPRAISER Med List: Prior to Admission Medications Prescriptions [...] reviewed the home medication list with the Billing And Quality Technician. The home medication list status is: complete and home med list marked as reviewed . All changes to the home medication list have been updated in IHIS. Please feel free to contact me with any further questions. Name: Sirena Carpenter Laura Phone #: [phone] Date/Time: 05/09/2025 1:44 PM * Rafaela Garcia [...] Acute hypoxic resp failure - resolved At [facility] requiring o2. 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 a [...] 05/09/2025 Signed, Rafaela Garcia MD * Andreea Carpenter, [employer] - 05/09/2025 12:12 PM EDT Discharge Planning [...] Yes Name and Contact information: Michael Marshall ([facility]) [phone] Would you like to add additional adult children?: Yes Name and Contact information: Amina Barr Name and Contact information: Richard Powell Advanced Care Planning Has the patient completed Advance Directives?: Completed, Available in Medical Record Reviewed for accuracy with patient?: Yes Advanced Directives on File: HealthCare Power of 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 Medication Management Does the patient have prescription insurance coverage? : Yes Is the patient [facility]? [facility] [id number] [place] [address] [facility] [address] [facility] [address] [address] [facility] [address] Living Environment and Support System Is the patient from a facility or chcf?: No Living Environment: House Patient Caregiving Responsibilities: [...] at home? : No Alejandra Grey (Teresa), HEAT ENGINEERING TEACHER, CCM Clinical Explosives Engineer \ * Deena Jacobs, OT - 05/09/2025 8:37 AM EDT Acute [...] Level of Function Details: Independent baseline. 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 Denies recent falls. IADL History IADLs: independent Primary Language: [place] Objective/Observation: Vitals/Vitals Responses to Treatment: Vital signs [...] Intervention/Details: Pt dons soft boot (with non-slip sex therapist) on L foot for mobility despite education [...] performance Mobility Assessment: Supine to Sit Mobility [place] Level: Supine->Sit: contact guard assist Bed Features/Set-up: Supine->Sit: Head of bed elevated, Use of bed rail Skilled Rationale: Positioning, Verbal cues, Initiation and execution of task Skilled Intervention/Details: Supine->Sit: x1 to EOB with increased time Sit to Supine Mobility [place] Level: Sit->Supine: stand-by assist Bed Features/Set-up: Sit->Supine: Head of bed elevated Skilled Rationale: Verbal cues, Initiation and execution of task Skilled Intervention/Details: Sit->Supine: x1 from EOB Transfer Assessment: Sit to Stand Transfer [place] Level: Sit->Stand: contact guard assist Assistive Device: Sit->Stand: gait belt Skilled Rationale: Verbal cues, Initiation and execution of task, Cues for increased safety Skilled Intervention/Details: Sit->Stand: x1 from EOB impulsively and requires cues for line management/safety Stand to Sit Transfer [place] Level: Stand->Sit: contact guard assist Assistive Device: Stand->Sit: gait belt Skilled Rationale: Verbal cues, Controlled descent for sitting, Technique of activity, Positioning Skilled Intervention/Details: Stand->Sit: x1 to EOB with cues for positioning Functional Mobility: Functional Mobility [place] Level: Functional Mobility/Gait: contact guard assist Assistive [...] currently uses wheelchair?: No Outcome Score(s): CURRENT [facility] Daily Activity Inpatient Short Form Putting on/Taking Off Lower Body Clothin - A Little Assistance Bathin - A Little Assistance Toiletin - A Little Assistance Putting on/Taking Off Upper Body Clothin - A Little Assistance Groomin - A Little Assistance Eatin - No Assistance CURRENT [facility] Activity Raw Score: 19 CURRENT [facility] Activity Functional Limitation/Modifier: 42.80% Currently Impaired in Daily Activity- CK CURRENT [facility] Basic Mobility Inpatient Short Form Turning over [...] a railin - A Little Assistance CURRENT [facility] Mobility Raw Score: 18 CURRENT [facility] Mobility Functional Limitation: 46.58% Impaired in Basic [...] Level of Function Details: 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 Denies [...] intact Mobility Assessment: Supine to Sit Mobility [place] Level: Supine->Sit: contact guard assist Bed Features/Set-up: Supine->Sit: Head of bed elevated, Use of bed rail Skilled Rationale: Verbal cues, Initiation and execution of task Skilled Intervention/Details: Supine->Sit: Increased time to complete Sit to Supine Mobility [place] Level: Sit->Supine: stand-by assist Bed Features/Set-up: Sit->Supine: [...] room Transfer Assessment: Sit to Stand Transfer [place] Level: Sit->Stand: contact guard assist Assistive Device: Sit->Stand: gait belt Skilled Rationale: Verbal cues, Initiation and execution of task Skilled Intervention/Details: Sit->Stand: Pt impulsively stands from EOB w/ repeat cueing for line safety Stand to Sit Transfer [place] Level: Stand->Sit: contact guard assist Assistive Device: Stand->Sit: gait belt Skilled Rationale: Sequencing, Verbal cues, Hand placement, Controlled descent for sitting, Technique of activity, Initiation and execution of task, Cues for increased safety Skilled Intervention/Details: Stand->Sit: X1 EOB Gait/Functional Mobility: Gait Assessment [place] Level: Gait: contact guard assist Assistive Device: [...] currently uses wheelchair?: No Outcome Score(s): CURRENT [facility] Basic Mobility Inpatient Short Form Turning over [...] a railin - A Little Assistance CURRENT [facility] Mobility Raw Score: 18 CURRENT [facility] Mobility Functional Limitation: 46.58% Impaired in Basic Mobility Assessment & Plan: Patient was admitted for 85 y.o. male with a past medical history of CAD x7 stents, PAD s/ SFA-peroneal bypass 02/2025, left metatarsal amputation, chronic R foot ulcer, HTN, HDL, BPH who presents as a transfer from [facility] due to hemoptysis. and seen for therapy [...] Physical Therapy Discharge Summary. documented in this [facility]09-16-2025 Miscellaneous Notes* Plan of Care - [...] Van fischer, Dr garcia and ID updated Meet Garcia Hospitalist Van [id number] * Nursing Notes - Rajiv Page RN [...] notified of assessment and plan. Please page #[phone] or reconsult with any further needs. * [...] 05/09/2025 2:00 AM EDT On admission to [facility], from outside facility a dual RN initial assessment of skin condition was performed by Valentino Olivares RN and Manohar Tolliver RN Skin Assessment: Skin not within defined limits. - Wound(s) identified: Yes - Photo taken and uploaded into notes in IHIS: Yes LDA Added:No Valentino Olivares RN [facility] Miscellaneous Notes* Plan of Care - Sakshi [...] and ID updated C Radha Hospitalist Van [id number] * Nursing Notes - Rajiv Page RN [...] No results found for: PREALBUMIN Wound Documentation: 05/09/25 0941 Wound Vascular Ulcer Arterial 05/09/25940 Anterior;Right Foot [...] notified of assessment and plan. Please page #[phone] or reconsult with any further needs. * [...] - Patient will transfer to/from toilet[facility] improved ability to safely complete ADLs. [...] 05/09/2025 2:00 AM EDT On admission to [facility], from outside facility a dual RN initial assessment of skin condition was performed by Valentino Olivares RN and Manohar Tolliver RN Skin Assessment: Skin not within defined limits. - Wound(s) identified: Yes - Photo taken and uploaded into notes in IHIS: Yes LDA Added:No Valentino Olivares RN [facility] Plan of care note* Plan of [...] Almaraz PT at 05/13/2025 3:15 PM EDT [facility]09-[facility] Plan of care note* Plan of Care [...] Gann PT at 05/12/2025 1:40 PM EDT [facility]09-[facility] Plan of care note* Plan of Care [...] Ineffective Goal: Effective Breathing Pattern Outcome: Progressing [facility]09-14-2025 Nurse Note* Nursing Notes - Solitario Gonzalez [...] it is not infusing. MD Nixon aware. [facility]09-14-2025 Plan of care note* Plan of Care - Tameak Wells RN - 05/11/2025 6:57 PM EDT Problem: Swallowing Impairment Goal: Optimal Eating/Swallowing without Aspiration Outcome: Progressing Problem: Adult Inpatient Plan of Care Goal: Plan of Care Review Outcome: Progressing Goal: Patient-Specific Goal (Individualized) Outcome: Progressing [facility]09[facility] Plan of care note* Plan of Care [...] Goal: Plan of Care Review Outcome: Progressing [facility]09-13[facility] Plan of care note* Plan of Care [...] Care Goal: Patient-Specific Goal (Individualized) Outcome: Progressing [facility]09-12[facility] Plan of care note* Plan of Care - Kate Garcia RN - 05/09/2025 3:58 PM EDT Patient came with packet of OSH records, which have already been sent on to medical records, and scanned into media tab, , culture results are on page 19, updated ID OSH disc imaging uploaded by hospitalist Van fischer, Dr garcia and ID updated C Radha Hospitalist Van [id number] [facility] Consult note* Obdulio Chapa MD - 05/09/2025 2:40 PM EDTAssociated Order(s): IP CONSULT TO PULMONOLOGY Pulmonary/Critical Care Medicine Inpatient Consultation Reason for Consultation: hemoptysis in setting of PNA/lung abscess Requesting Physician: RAFAELA GARCIA Outpatient Pulmonary Physician: None HPI: Tristin Powell Neftali is a 85 y.o. [...] treated for AECOPD exacerbation at OSH and [facility] but states that he felt that [...] Laterality: N/A; Surgeon: Isaias Vogt MD; Location: [facility]ATH[facility]EP LAB ATHERECTOMY PERIPHERAL N/A 08/09/2018 Laterality: N/A; Surgeon: Isaias Vogt MD; Location: [facility] CARDI[facility] CATH/EP LAB CORONARY STENT PLACEMENT [...] as outlined below Beena Nguyen MD MPH [facility]09-12-2025 Consult note* Obdulio Chapa MD - 05/09/2025 [...] for AECOPD exacerbation at OSH and [facility] but states that he felt that he [...] presented on 05/09/2025 as a transfer from [facility]. Patient presented to [facility] 05/02/25 with LAM, cough x10 days with blood streaked sputum. 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 At [facility], he was found tohave rhinovirus. CT chest (05/04/25) showed bilateral patchy infiltrates, 10 cm air-fluid collection LLL c/f infected bullae vs abscess. Started on abx (pip/tazo and doxycycline), prednisone, duonebs. Developed worsening hemoptysis and pulmonary recommended transfer [facility] for [facility]. Patient was admitted to [place] [address]. On RA, sputum pink tinged. Patient is afebile. Currently on cefepime and vancomycin. Has coughing fits that make him sob. Blood tinged sputum. Has fevers at [facility], but has since resolved. Of note, patient was admitted to [facility] 03/14/25 - 03/21/25 with acute RLE ischemia. S/p distal SFA-peroneal bypass 03/12/25. After he got home, his right great toe became black on the lateral side. Saw his suit attendant who took off the nail. Prescribed him amox/clav and TMP/SMX. Patient has known bone exposure and his suit attendant prepped him for the fact that it may need to come off. Review of Systems - all systems reviewed and negative unless stated in the HPI. 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 Family History Problem [...] 05/09/2025 BILIDIRECT 0.1 05/09/2025 Microbiology: (personally reviewed) [facility] - called micro to get [...] pneumo ag neg Imagin05/06/25 - CT chest ([facility]) - unable to see images - potential infected LLL bulla is once again noted. Impression: no significant chagne in lung findings compared to the prior study from 05/04/25. Bibasilar consolidations with potential infected bullae involving the LLL persists Impression: 85 y.o. male with CAD, PAD s/p SFA-peroneal bypass 02/2025, HTN, HLD, BPH, A fib, CKD3a transferred from [facility] with PNA and hemoptysis. Need full records and images brought over from [facility] to review. Initial sputum culture [...] System-Wide Infectious Disease - Paola Cordova MD [employer] [place] [employer] Division of Infectious Diseases Pager #[phone] [1] Past Medical History: Diagnosis Date Arthritis CAD (coronary artery disease) 3 stents placed COPD (chronic obstructive pulmonary disease) Essential hypertension, benign GERD (gastroesophageal reflux disease) Hyperlipidemia Prostate cancer Vascular disease [2] Past Surgical History: Procedure Laterality Date ARTHROPLASTY HIP TOTAL ANTERIOR APPROACH Right 07/15/2021 Laterality: Right; Surgeon: Dashawn Silvestre MD; Location: [facility] PERIPHERAL ANGIOPLASTY N/A 08/09/2018 Laterality: N/A; Surgeon: Isaias Vogt MD; Location: [facility]EP LAB PERIPHERAL STENT PLACEMENT N/A 08/09/2018 Laterality: N/A; Surgeon: Isaias Vogt MD; Location: [facility] CARDIAC CATH/EP LAB ATHERECTOMY PERIPHERAL N/A 08/09/2018 Laterality: N/A; Surgeon: Isaias Vogt MD; Location: [facility] CARDIAC CATH/EP LAB CORONARY STENT PLACEMENT 2007 x3 total of 7 AMPUTATION front of left toes ANKLE FRACTURE SURGERY Left plate placed in L ankle CORONARY ARTERY BYPASS GRAFT 3 vessel RADIOGRAPHIC/SURGICAL IMPLANT INDEX jul 2010-november 2010 radioactive seeds implanted prostate [3] Allergies Allergen Reactions Gabapentin [facility] Consult note* Obdulio Chapa MD - 05/09/2025 [...] for AECOPD exacerbation at OSH and [facility] but states that he felt that he [...] Data: +Rhinovirus at OSH CT chest on 9/7 showing bilateral patchy infiltrates, 10 cm air-fluid [...] Laterality: Right; Surgeon: Dashawn Silvestre MD; Location: [facility] PERIPHERAL ANGIOPLASTY N/A 08/09/2018 Laterality: N/A; Surgeon: Isaias Vogt MD; Location: [facility] CARDIAC CATH/EP LAB PERIPHERAL STENT PLACEMENT N/A 08/09/2018 Laterality: N/A; Surgeon: Isaias Vogt MD; Location: [facility] CATH/EP LAB ATHERECTOMY PERIPHERAL N/A 08/09/2018 Laterality: N/A; Surgeon: Isaias Vogt MD; Location: [facility] CARDIAC CATH/EP LAB CORONARY STENT PLACEMENT 2007 [...] presented on 05/09/2025 as a transfer from [facility]. Patient presented to [facility] 05/02/25 with LAM, cough x10 days with blood streaked sputum. 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 At [facility], he was found tohave rhinovirus. CT chest (05/04/25) showed bilateral patchy infiltrates, 10 cm air-fluid collection LLL c/f infected bullae vs abscess. Started on abx (pip/tazo and doxycycline), prednisone, duonebs. Developed worsening hemoptysis and pulmonary [facility]. Patient was admitted to [place] [address]. On RA, sputum pink tinged. Patient is afebile. Currently on cefepime and vancomycin. Has coughing fits that make him sob. Blood tinged sputum. Has fevers at [facility], but has since resolved. Of note, patient was admitted to [facility] 03/14/25 - 03/21/25 with acute RLE ischemia. S/p distal SFA-peroneal bypass 03/12/25. After he got home, his right great toe became black on the lateral side. Saw his suit attendant who took off the nail. Prescribed him amox/clav and TMP/SMX. Patient has known bone exposure and his suit attendant prepped him for the fact that it may need to come off. Review of Systems - all systems reviewed and negative unless stated in the HPI. 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 Family History Problem [...] 05/09/2025 BILIDIRECT 0.1 05/09/2025 Microbiology: (personally reviewed) [facility] - called micro to get [...] pneumo ag neg Imagin05/06/25 - CT chest ([facility]) - unable to see images - potential infected LLL bulla is once again noted. Impression: no significant chagne in lung findings compared to the prior study from 05/04/25. Bibasilar consolidations with potential infected bullae involving the LLL persists Impression: 85 y.o. male with CAD, PAD s/p SFA-peroneal bypass 02/2025, HTN, HLD, BPH, A fib, CKD3a transferred from [facility] with PNA and hemoptysis. Need full records and images brought over from [facility] to review. Initial sputum culture [...] on-call ID/1st call Fellow pager. [facility] - [facility] System-Wide Infectious Disease - Paola Cordova MD [employer] [place] [employer] Division of Infectious Diseases Pager #[phone] [1] Past Medical History: Diagnosis Date Arthritis [...] Allergies Allergen Reactions Gabapentin documented in this [facility]OS[facility]09-12-2025 Nurse Note* Nursing Notes - Valentino Olivares RN - 05/09/2025 2:00 AM EDT On admission to [facility], from outside facility a dual RN initial assessment of skin condition was performed by Valentino Olivares RN and Manohar Tolliver RN Skin Assessment: Skin not within defined limits. - Wound(s) identified: Yes - Photo taken and uploaded into notes in IHIS: Yes LDA Added:No Valentino Olivares RN [facility]09-12-2025 Consult note* Paola Cordova MD - 05/09/2025 [...] presented on 05/09/2025 as a transfer from [facility]. Patient presented to [facility] 05/02/25 with LAM, cough x10 days with blood streaked sputum. 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 At [facility], he was found tohave rhinovirus. CT chest (05/04/25) showed bilateral patchy infiltrates, 10 cm air-fluid collection LLL c/f infected bullae vs abscess. Started on abx (pip/tazo and doxycycline), prednisone, duonebs. Developed worsening hemoptysis and pulmonary recommended [facility] for [facility]. Patient was admitted to [place] [address]. On RA, sputum pink tinged. Patient is afebile. Currently on cefepime and vancomycin. Has coughing fits that make him sob. Blood tinged sputum. Has fevers at [facility], but has since resolved. Of note, patient was admitted to [facility] 03/14/25 - 03/21/25 with acute RLE ischemia. S/p distal SFA-peroneal bypass 03/12/25. After he got home, his right great toe became black on the lateral side. Saw his suit attendant who took off the nail. Prescribed him amox/clav and TMP/SMX. Patient has known bone exposure and his suit attendant prepped him for the fact that it may need to come off. Review of Systems - all systems reviewed and negative unless stated in the HPI. 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 Family History Problem [...] 05/09/2025 BILIDIRECT 0.1 05/09/2025 Microbiology: (personally reviewed) [facility] - called micro to get [...] pneumo ag neg Imagin05/06/25 - CT chest ([facility]) - unable to see images - potential infected LLL bulla is once again noted. Impression: no significant chagne in lung findings compared to the prior study from 05/04/25. Bibasilar consolidations with potential infected bullae involving the LLL persists Impression: 85 y.o. male with CAD, PAD s/p SFA-peroneal bypass 02/2025, HTN, HLD, BPH, A fib, CKD3a transferred from [place] with PNA and hemoptysis. Need full records and images brought over from [facility] to review. Initial sputum culture [...] System-Wide Infectious Disease - Paola Cordova MD [employer] [place] [employer] Division of Infectious Diseases Pager #[phone] [1] Past Medical History: Diagnosis Date Arthritis CAD (coronary artery disease) 3 stents placed COPD (chronic obstructive pulmonary disease) Essential hypertension, benign GERD (gastroesophageal reflux disease) Hyperlipidemia Prostate cancer Vascular disease [2] Past Surgical History: Procedure Laterality Date ARTHROPLASTY HIP TOTAL ANTERIOR APPROACH Right 07/15/2021 Laterality: Right; Surgeon: Dashawn Silvestre MD; Location: [facility] PERIPHERAL ANGIOPLASTY N/A 08/09/2018 Laterality: N/A; Surgeon: Isaias Vogt MD; Location: [facility] CATH/EP LAB PERIPHERAL STENT PLACEMENT N/A 08/09/2018 Laterality: N/A; Surgeon: Isaias Vogt MD; Location: [facility] CATH/EP LAB ATHERECTOMY PERIPHERAL N/A 08/09/2018 Laterality: N/A; Surgeon: Isaias Vogt MD; Location: [facility] CARDIAC CATH/EP LAB CORONARY STENT PLACEMENT 2007 x3 total of 7 AMPUTATION front of left toes ANKLE FRACTURE SURGERY Left plate placed in L ankle CORONARY ARTERY BYPASS GRAFT 3 vessel RADIOGRAPHIC/SURGICAL IMPLANT INDEX jul 2010-november 2010 radioactive seeds implanted prostate [3] Allergies Allergen Reactions Gabapentin [facility] Work Phone: 1(104) 932-362209-12-2025 Nurse Note* Nursing Notes - Rajiv Page [...] notified of assessment and plan. Please page #[phone] or reconsult with any further needs. [facility]09-12-2025 Hospital Discharge instructions* Discharge Instructions* Rafaela Garcia [...] the following: Please follow-up with your local salesperson pianos and organs in 4-6 weeks and get a repeat [...] your discharge, please call our office at [phone] or your floor and one of our nurses will call you back. Division of Hospital Medicine [phone] Patient Experience Survey Reminder You may receive a survey in the mail within a few weeks regarding your hospitalization. This helps us to improve the care and services we provide at [facility]. We truly appreciate you taking the time to fill this out. We particularly welcome any specific comments you may have (good or bad!) regarding your experience[facility] so that we may use them to continue to strive towards excellence for our patients. * Attachments The following attachments cannot be sent through Care Everywhere. * Blood Thinners: How to Prevent Bleeding ([facility]) ([place]) documented in this encounterOS[facility]09-[facility]25 Hospital Discharge instructions* Discharge Instructions* Rafaela Garcia [...] the following: Please follow-up with your local salesperson pianos and organs in 4-6 weeks and get a repeat [...] your discharge, please call our office at [phone] or your floor and one of our nurses will call you back. Division of Hospital Medicine [phone] Patient Experience Survey Reminder You may receive a survey in the mail within a few weeks regarding your hospitalization. This helps us to improve the care and services we provide at [facility]. We truly appreciate you taking the time to fill this out. We particularly welcome any specific comments you may have (good or bad!) regarding your experienceat [facility] so that we may use them to continue to strive towards excellence for our patients. * Attachments The following attachments cannot be sent through Care Everywhere. * Blood Thinners: How to Prevent Bleeding ([facility]) ([place]) [facility] Plan of care note* Plan of Care [...] with minimal cues for accuracy. Outcome: [facility]ngoing [facility]09-[facility] Plan of care note* Plan of Care - Amairani Anaya, PT [...] understanding of exercise program. Outcome: [facility]ing [facility]09-12[facility] History and physical note* Jose Manuel Pineda [...] non massive Requiring inhaled TXA TID at [facility]. On arrival to [facility] patient only producing pink-tinged sputum, no ileana blood. Remains stable on room air. Hgb at [facility] 10- 11. Stable on arrival to [facility] [...] Acute hypoxic resp failure - resolved At [facility] requiring o2. Weaned to room air prior [...] OSH due to hemoptysis. Patient presented to [facility] on 05/02 due to shortness of breath on exertion, chest congestion, nonproductive cough that had been ongoing for about 10 days. He had been diagnosed with bronchitis about 10 days prior to admission to [facility] and had been taking steroids and breathing [...] department by his PCP. On arrival to [facility] ED chest x-ray was notable for hilar vascular c ongestion, bibasilar linear atelectasis and hyperinflation and was admitted for further evaluation and management. Work up at [facility] was remarkable for (+) rhinovirus and a [...] TID. He was evaluated by Pulmonology at [facility] who recommended embolization for management of hemoptysis; [...] prostate [3] Allergies Allergen Reactions Gabapentin [facility]09-12-[facility] History and physical note* Jose Manuel Pineda MD - 05/09/2025 2:44 AM EDT Hospital Medicine Admission History & Physical Patient: Tristin Bazan Sherry Lima, : 1940, Date of face to face [...] non massive Requiring inhaled TXA TID at [facility]. On arrival to [facility] patient only producing pink-tinged sputum, no ileana blood. Remains stable on room air. Hgb at [facility] 10- 11. Stable [facility] to [facility] [...] Acute hypoxic resp failure - resolved At [facility] requiring o2. Weaned to room air prior [...] Hemoptysis History of Presenting Illness Tristin Powell is a 85 y.o. male with a past medical history of CAD x7 stents, PAD s/ SFA-peroneal bypass 02/2025, left metatarsal amputation, chronic R foot ulcer, HTN, HDL, BPH who [facility] due to [facility]sis. Patient presented to [facility] on 05/02 due to shortness of breath on exertion, chest congestion, nonproductive cough that had been ongoing for about 10 days. He had been diagnosed with bronchitis about 10 days prior to admission to [facility] and had been taking steroids and breathing [...] department by his PCP. On arrival to [facility] ED chest x-ray was notable for hilar vascular c ongestion, bibasilar linear atelectasis and hyperinflation and was admitted for further evaluation and management. Work up at [facility] was remarkable for (+) rhinovirus and a [...] TID. He was evaluated by Pulmonology at [facility] who recommended embolization for management of hemoptysis; [...] Allergies Allergen Reactions Gabapentin documented [facility] this [facility] History and physical note* Jose Manuel Pineda [...] non massive Requiring inhaled TXA TID at [facility]. On arrival to [facility] patient only producing pink-tinged sputum, no ileana blood. Remains stable on room air. Hgb at [facility] 10- 11. Stable on arrival to [facility] [...] Acute hypoxic resp failure - resolved At [facility] requiring o2. Weaned to room air prior [...] OSH due to hemoptysis. Patient presented to [facility] on 05/02 due to shortness of breath on exertion, chest congestion, nonproductive cough that had been ongoing for about 10 days. He had been diagnosed with bronchitis about 10 days prior to admission to [facility] and had been taking steroids and breathing [...] department by his PCP. On arrival to [facility] ED chest x-ray was notable for hilar vascular c ongestion, bibasilar linear atelectasis and hyperinflation and was admitted for further evaluation and management. Work up at [facility] was remarkable for (+) rhinovirus and a [...] TID. He was evaluated by Pulmonology at [facility] who recommended embolization for management of hemoptysis; [...] Laterality: Right; Surgeon: Dashawn Silvestre MD; Location: [facility] OR PERIPHERAL ANGIOPLASTY N/A 08/09/2018 Laterality: N/A; Surgeon: Isaias Vogt MD; Location: [facility] CARDIAC CATH/EP LAB PERIPHERAL STENT PLACEMENT N/A 08/09/2018 Laterality: N/A; Surgeon: Isaias Vogt MD; Location: [facility] CARDIAC CATH/EP LAB ATHERECTOMY PERIPHERAL N/A 08/09/2018 Laterality: N/A; Surgeon: Isaias Vogt MD; Location: [facility] CARDIAC CATH/EP LAB CORONARY STENT PLACEMENT 2007 x3 total of 7 AMPUTATION front of left toes ANKLE FRACTURE SURGERY Left plate placed in L ankle CORONARY ARTERY BYPASS GRAFT 3 vessel RADIOGRAPHIC/SURGICAL IMPLANT INDEX jul 2010-november 2010 radioactive seeds implanted prostate [3] Allergies Allergen Reactions Gabapentin [facility]U [facility] History of Present illness Narrative* LEONARDA Villavicencio - 05/02/2025 1:00 PM EDT Images from the original note were not included. Subjective Patient ID: Tristin Powell is a 85 y.o. male who presents for [facility] ER follow up. Flowsheet Row Patient Outreach from 05/01/2025 in [facility] with Elaine Saba CONSTRUCTION CRAFT LABORER [facility] Information ED, Hospital or Shelter Facility Discharge? ED Patient has been contacted within 2 days of being seen in the ED Yes Diagnosis Acute bronchitis, mild COPD exacerbation Discharge Date 04/30/25 Discharged To: Home Setting Discharge Hospital [facility] Engagement Call Start Time 1124 Admission [...] [facility] Cellulitis LLE Colon polyps 2011 Critical lower limb ischemia ([facility]) 09/04/2018 Last Assessment & Plan: Pt s/p LLE angiogram with Dr Hahn who feels that the pt has no further endovascular options. He has consulted Dr. Sarabia for a possible tibial bypass. 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 Failure - [facility] History of being hospitalized [place] [facility] 07/15/2021-07/16/2021 History of coronary angiogram [...] (HCC) 10/2016 Preinfarcation syndrome, CABGx3 Prostate cancer ([facility]) 2009 SOB (shortness of breath) Unstable angina ([facility]) 2014 XR 06/18/2019 XR shows impingement to [...] incomplete bowel prep Diverticulosis Dr. Rowe at [facility] COLONOSCOPY W/ POLYPECTOMY 2011 CORONARY ARTERY BYPASS [...] HISTORY 04/25/[address] LE [address]. Hahn IN MEDICATION MANAGEMENT 11/2020 Multi resistant Strep Pneumonia, [...] ahospital and agrees to go back to [facility] for further evaluation. His brother will take him directly. Follow up for ER follow up. documented in this encounterGolden Valley Memorial [id number] Telephone encounter Note* Telephone Encounter - ELONARDA Villavicencio - 04/29/2025 9:54 PM EDT Metoprolol sent. [facility] [id number] Miscellaneous Notes* Telephone Encounter - LEONARDA Villavicencio - 04/29/2025 9:54 PM EDT Metoprolol sent. [facility] NoteI saw Mr. Powell in office today [...] wound care under the care of a suit attendant. He is on his ASA, xarelto and [...] home. AUTHENTICATED BY MOHSEN SARABIA, ON 04/23/2025 15:06:32[facility]08-27-2025 History of Present illness Narrative* Mohsen Sarabia [...] wound care under the care of a suit attendant. He is on his ASA, xarelto and [...] done close to home. documented in this [id number] Telephone encounter Note* Telephone Encounter - Flash Lovelace MD - 04/21/2025 1:31 PM EDT Patient requests Zofran refilled [facility] [id number] Miscellaneous Notes* Telephone Encounter - Flash Lovelace MD - 04/21/2025 1:31 PM EDT Patient requests Zofran refilled documented in this encounterGolden Valley Memorial [id number] History of Present illness Narrative* Flash Lovelace [...] 2009 Avascular necrosis of bone of hip ([facility]) 09/04/2011 Right hip Right hip CAD (coronary artery disease) 2013 Carotid artery disease Cataract 2013 Cellulitis 01/19/2022 [facility] Cellulitis LLE Colon polyps 2011 Critical lower limb ischemia ([facility]) 09/04/2018 Last Assessment & Plan: Pt s/p LLE angiogram with Dr Hahn who feels that the pt has no further endovascular options. He has consulted Dr. Sarabia for a possible tibial bypass. Pt s/p LLE critical limb ischemia Deann class 4 rest pain with distal discoloration to histoes Gangrene of left foot (HCC) 10/04/2018 Groin hematoma 2013 RT Femoral groin Hematoma H/O myocardial perfusion scan 07/09/2019 LVEF 56% Myocardial perfusion imaging shows a defect in Apical wall Herpes zoster 09/04/2011 History of being hospitalized 12/06/2020 Strep Pneumonia, Resp. Failure - [facility] History of being hospitalized [place] [facility] 07/15/2021-07/16/2021 History of coronary angiogram [...] incomplete bowel prep Diverticulosis Dr. Rowe at [facility] COLONOSCOPY W/ POLYPECTOMY 2011 CORONARY ARTERY BYPASS [...] HISTORY 04/25/2022 Diagnostic LE catheterization Dr. Hahn IN MEDICATION MANAGEMENT 11/2020 Multi resistant Strep Pneumonia, [...] up with podiatry Osteomyelitis of right foot ([facility]) Relevant Orders MR foot right wo IV contrast No follow-ups on file. documented in this encounterGolden Valley Memorial [id number] Telephone encounter Note* Telephone Encounter - LEONARDA [...] in error. Spoke with Deena at [facility]. [facility] [id number] Miscellaneous Notes* Telephone Encounter - LEONARDA Villavicencio [...] in error. Spoke with Deena at [facility]. documented in this encounterGolden Valley Memorial [id number] History of Present illness Narrative* LEONARDA Villavicencio [...] Colon polyps 2012 Critical lower limb ischemia ([facility]) 09/04/2018 Last Assessment & Plan: Pt s/p LLE angiogram with Dr Hahn who feels that the pt has no further endovascular options. He has consulted Dr. Sarabia for a possible tibial bypass. Pt s/p LLE critical limb ischemia Marcus Hook class 4 rest pain with distal discoloration to histoes Gangrene of left foot ([facility]) 10/04/2018 Groin hematoma 2014 RT Femoral groin Hematoma H/O myocardial perfusion scan 07/09/2019 LVEF 56% Myocardial perfusion imaging shows a defect in Apical wall Herpes zoster 09/04/2011 History of being hospitalized 12/06/2020 Strep Pneumonia, Resp. Failure - [facility] History of being hospitalized [place] [facility] 07/15/2021-07/16/2021 History of coronary angiogram [...] (HCC) 10/2016 Preinfarcation syndrome, CABGx3 Prostate cancer ([facility]) 2009 SOB (shortness of breath) Unstable angina ([facility]) 2014 XR 06/18/2019 XR shows impingement to [...] incomplete bowel prep Diverticulosis Dr. Rowe at [facility] COLONOSCOPY W/ POLYPECTOMY 2011 CORONARY ARTERY BYPASS [...] HISTORY 04/25/[address] LE catheter[address]. Hahn IN MEDICATION MANAGEMENT 11/2020 Multi resistant Strep Pneumonia, [...] for Medication Follow Up. documented in this encounterGolden Valley Memorial [id number] NoteI saw Mr. Powell today in office [...] OMT. AUTHENTICATED BY MOHSEN SARABIA, ON 04/02/2025 12:15:56[facility]08-06-2025 History of Present illness Narrative* Mohsen Sarabia [...] foot care and OMT. documented in this [id number] History of Present illness Narrative* Flash Lovelace [...] getting better. Hospital Information ED, Hospital or Shelter Facility Discharge? Hospital Patient has been contacted within two business days of discharge Yes Diagnosis claudication, rightleg pain, PAD Discharge Date 03/21/25 Discharged To: Home Setting Discharge Hospital [facility] Engagement Call Start Time 1226 Admission [...] yes What is the home health agency? [facility] care Has home health visited the patient [...] 2009 Avascular necrosis of bone of hip ([facility]) 09/04/2011 Right hip Right hip CAD (coronary artery disease) 2013 Carotid artery disease Cataract 2014 Cellulitis 01/19/2022 [facility] Cellulitis LLE Colon polyps 2012 Critical lower limb ischemia ([facility]) 09/04/2018 Last Assessment & Plan: Pt s/p LLE angiogram with Dr Hahn who feels that the pt has no further endovascular options. He has consulted Dr. Sarabia for a possible tibial bypass. Pt s/p LLE critical limb ischemia Deann class 4 rest pain with distal discoloration to histoes Gangrene of left foot ([facility]) 10/04/2018 Groin hematoma 2013 RT Femoral groin Hematoma H/O myocardial perfusion scan 07/09/2019 LVEF 56% Myocardial perfusion imaging shows a defect in Apical wall Herpes zoster 09/04/2011 History of being hospitalized 12/06/2020 Strep Pneumonia, Resp. Failure - [facility] History of being hospitalized [place] [facility] 07/15/2021-07/16/2021 History of coronary angiogram [...] LENS IMPLANT 2014 CERVICAL SPINE SURGERY 11/29/2019 [facility] COLONOSCOPY 03/16/2018 incomplete bowel prep Diverticulosis Dr. Rowe at [facility] COLONOSCOPY W/ POLYPECTOMY 2011 CORONARY ARTERY BYPASS [...] HISTORY 04/25/[address] Hahn IN MEDICATION MANAGEMENT 11/2020 Multi resistant Strep Pneumonia, [...] reviewed for this patient. documented in this encounterGolden Valley Memorial [id number] History of Present illness Narrative* Forylan Higgins - 03/21/2025 4:00 PM EDT Spiritual Care Progress Note Completed by: Froylan Higgins Person(s) Present During this Visit: Patient Time Spent in Direct Patient Care: 30 Narrative: This Concrete Form Setter And Finisher visited Tristin while rounding. Pt identifies as moravian and finds hope/support in family. Concrete Form Setter And Finisher provided empathetic listening with supportive presence and compassionate care. Pt shared a narrative of illness and some life experiences. Pt expressed gratitude for fire control mechanic's support and visit. Pt was informed about 20/03 availability of the Chaplains, and how to contact. Pastoral Care Team will remain available to provide emotional and spiritual care support PRN. Patients Response to Pastoral Care: Expressed Gratitude for Visit, Appeared to be well-engaged Planning for Future Visits: PRN Patient's Spiritual Needs Assessment 03/21/25 1600 Visit Background Visit With Patient Visit By Staff Concrete Form Setter And Finisher Visit Progression Introduction Visit Requested By Concrete Form Setter And Finisher Initiated Visit Source Concrete Form Setter And Finisher Initiated Visit Type Inpatient;Rounding Visit Circumstances and Events Routine Visit Visit Length (minutes) 30 Patient's Response to Pastoral Care Expressed Gratitude for Visit;Appeared to be well-engaged Visit Planning PRN Spiritual Assessment Assessed during this visit Jew Assessment Assessed during this visit Family assessment provided? Unable to asess during this visit Patient Spiritual Needs Assessment Sources of Connection Son;Daughter;Other (see comment) (family) Belief Practices Attends Jew Services Image of the Divine Answers Prayer;Comforter;Creator;Healer;Guide;Love;Listens [...] of Care Focus on Wellness;Receive Comfort Patient Jew Needs Assessment Jew Connection Attends as Often as Able Jew Home Mormon Jain Connection Non-Jain Place of Restorationist - Name Life of Riky Jew Resources Hope/Trust in God;Prayer Jew Rituals [place];Prayer Expressed Outcome Expressed Gratitude;Expressed Hope Rev. Froylan Higgins MBA., Jenni Burton.Div Staff Concrete Form Setter And Finisher, Pastoral Care [address] [address] * Jagruti Mooney PTA - 03/21/2025 12:21 PM EDT Physical Therapy PHYSICAL THERAPY TREATMENT NOTE Skilled Therapy Needs After Discharge Anticipate Resolution of Current Assessment Limitations Including: Pain, Mechanical Barriers Are pattern maker Therapy Services Needed After Discharge: Yes Intensity of pattern maker Therapy: Up to 5 days per week Anticipated Duration of pattern maker Therapy: Duration 7 - 10 days PT [...] - Static: Contact guard assist, with device Supervisor Sewing Room - Standing Static: wheeled walker Standing Balance - Dynamic: Contact guard assist, with device Supervisor Sewing Room - Standing Dynamic: wheeled walker Skilled Intervention [...] (Seated EOB post session with nursing notified) Supervisor Sewing Room: bedrails, bed positioning mechanics Skilled Intervention Provided: [...] Lateral Transfers: Contact guard assist, Minimal assist Supervisor Sewing Room: wheeled walker Skilled Intervention Provided: verbal cues, [...] secondary impairment(s) Car Transfers: Contact guard assist Supervisor Sewing Room: wheeled walker Skilled Intervention Provided: verbal cues, [...] walker.) Prior Level of Function Level of [place] - Transfers/Ambulation/Mobility: Independent with functional transfers Level of [place] - ADLs: Independent Level of [place] - Homemaking: Independent Driving: Patient drives Vocational: [...] of : 1940 Discharge Plan: D/C Disposition: Shelter Facility Related to Current Admission?: Yes Plan A: Home Health Care Services Plan B: Home Discharging Transportation Plan: Transportation Type: Auto Discharge Plan Status: home vs SNF CM following for dc needs. Chart reviewed, patient last able to work with therapy 03/20, current recs are up to 5 with ampac of 19. Patient originally wanted to go home with [facility]. After discussion withattending physician, now open to snf placement. Patient walking 20 feet. Will obtain choices and send referrals. Patient will need precert once med ready. Patient nearing med readiness. If unable to secure SNF will plan for home going plan with [facility], will place hub order for therapy. Will continue to follow as patient progresses medically. Addendum 919: hub order placed for [facility] therapy. One accepted, likely plan for discharge later todayonce [facility] accepted. Addendum 1551: patient now wanting OP therapy. Order placed, and updated liaison to cancel [facility] order. Patient now med ready for discharge. Assessment and Background Information: * Darius Sultana - 03/20/2025 3:43 PM EDT Physical Therapy PHYSICAL THERAPY TREATMENT NOTE Skilled Therapy Needs After Discharge Anticipate Resolution of Current Assessment Limitations Including: Pain, Mechanical Barriers Are pattern maker Therapy Services Needed After Discharge: Yes Intensity of pattern maker Therapy: Up to 5 days per week Anticipated Duration of pattern maker Therapy: Duration 7 - 10 days PT [...] - Static: Contact guard assist, Minimal assist Supervisor Sewing Room - Standing Static: wheeled walker Standing Balance - Dynamic: Contact guard assist, Minimal assist Supervisor Sewing Room - Standing Dynamic: wheeled walker Skilled Intervention [...] to Supine: (Pt ended session in recliner) Supervisor Sewing Room: bedrails, bed positioning mechanics Transfers Sit to Stand: Moderate assist, 2 person assist (x1 from bed, x1 from toilet, x1 from recliner) Stand Pivot Transfers: Minimal assist Supervisor Sewing Room: wheeled walker Skilled Intervention Provided: verbal cues, [...] walker.) Prior Level of Function Level of [place] - Transfers/Ambulation/Mobility: Independent with functional transfers Level of [place] - ADLs: Independent Level of [place] - Homemaking: Independent Driving: Patient drives Vocational: [...] Lopez, PT at 03/21/2025 12:32 PM EDT * Uri Voss DO - 03/20/2025 8:03 AM EDT [facility] Inpatient Progress Note 03/20/2025 Tristin Powell 1940 [id number] Assessment/Plan: Tristin Powell is a 85 y.o. [...] ischemia: History of PAD. Follows Dr. Beaver ([facility]) and Dr. Sarabia (Vascular Surgery) [...] 03/20/25 ordered. [facility] followi amanda. Acute on Chronic Pain Syndrome: with opiate dependence. Continued home Percocet with increased dose. S/p IV pain meds. 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 Moving well withmild pain.: Decreased [...] RLE rest pain ASSESSMENT AND PLAN Tristin Poewll is a 85 y.o. male with history of arotic stenosis, HTN, dyslipidemia, HFpEF, ascending/thoracic aortic aneurysm (4.[address] dated 04/2024), CAD (NSTEMI; s/p 3v CABG), paroxysmal a.fib, aortic & mitral valve disease, COPD, CKD stage 3, PAD, s/p left fem to peroneal bypass (2018, [place]), left TMA who presented to [facility] on 03/14/2025 with worsening RLE pain [...] PGY-1 [facility] Please contact surgical international tax manager division merchandise manager 5PM-6AM and weekends - #[phone] VTS Pager - [phone] Subjective NAEO. Has been ambulating. New bruising [...] imaging and laboratory results reviewed * Uri Voss, - 03/19/2025 8:02 AM EDT [facility] Inpatient Progress Note 03/19/2025 Tristin Powell 1940 [id number] Assessment/Plan: Tristin Powell is a 85 y.o. [...] ischemia: History of PAD. Follows Dr. Beaver ([facility]) and Dr. Sarabia (Vascular Surgery) [...] timing TBD. [facility] fol lowing. Acute on Chronic Pain Syndrome: with opiate dependence. Continued home Percocet with increased dose. IV Dilaudid added, wean as able. 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 Moving well withmild pain.: Decreased [...] left TMA who presented to [facility] on 03/14/2025 with worsening RLE pain [...] PGY-1 [facility] Please contact surgical international tax manager division merchandise manager 5PM-6AM and weekends - #[phone] VTS Pager - #[phone] Subjective NAEO. Was able to get up [...] Limitations Including: Mechanical Barriers, Social Support Are pattern maker Therapy Services Needed After Discharge: Yes Intensity of pattern maker Therapy: Up to 5 days per week Anticipated Duration of pattern maker Therapy: Duration 10 - 30 days PT [...] Supine: Minimal assist, Head of bed flat Supervisor Sewing Room: bedrails, patient slide sheet / friction-reducing device, [...] walker.) Prior Level of Function Level of [place] - Transfers/Ambulation/Mobility: Independent with community ambulation, Independent with household ambulation, Independent with functional transfers Level of [place] - ADLs: Independent Level of [place] - Homemaking: Independent Driving: Patient drives Vocational: [...] (HCC) Claudication COPD (chronic obstructive pulmonary disease) ([facility]) Coronary artery disease Herpes zoster Hyperlipidemia Hypertension PAD (peripheral artery disease) ([facility]) 01/21/2022 Posterior tibial tendinitis of right leg 11/07/2022 Prostate cancer ([facility]) Vascular disease Past Surgical History: Procedure Laterality Date AMPUTATION TRANSMETATARSAL Left 10/08/2018 Procedure: LEFT MIDFOOT AMPUTATION; Surgeon: Flynn Mann DPM; Location: [facility] OR; Service: Podiatry ANKLE SURGERY Left BYPASS FEMOROTIBIAL REPAIR/GRAFT Right 03/17/2025 Procedure: RIGHT FEMORAL TO TIBIAL BYPASS WITH ARM VEIN. Angiogram; Surgeon: Mohsen Sarabia MD; Location: [facility] NEURO OR; Service: Gen-Vascular; Laterality: Right; BYPASS PERONEAL FEMORAL Right 09/07/2018 Procedure: BYPASS PERONEAL FEMORAL, RIGHT SAPHENOUS VEIN HARVEST, COMPLETION ANGIOGRAM; Surgeon: Mohsen Sarabia MD; Location: [facility] NEURO OR; Service: Cardiovascular CARDIAC CATHETERIZATION Left 09/05/2018 Procedure: Angio Lower Extremity; Surgeon: Ben Hahn MD; Location: [facility] INSPECTOR TESTER SORTER; Service: Cardiovascular CARDIAC SURGERY 2017 triple bypass [...] Voss DO - 03/18/2025 8:14 AM EDT [facility] Inpatient Progress Note 03/18/2025 Tristin Powell 1940 [id number] Assessment/Plan: Tristin Powell is a 85 y.o. [...] ischemia: History of PAD. Follows Dr. Beaver ([facility]) and Dr. Sarabia (Vascular Surgery) [...] dose. IV Dilaudid added. 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 Moving well withmild pain.: Decreased [...] left TMA who presented to [facility] on 03/14/2025 with worsening RLE pain and discoloration. Arterial Duplex (03/14/25): 50-99% stenosis in the right mid SFA YAMILE's (03/14/25): Right YAMILE is 0.50. Left YAMILE is 0.55. CTLI IV Aortic Stenosis -Admitted to medicine -s/p RLE distal SFA to peroneal bypass w/ reversed LUE cephalic vein, completion angio w/ diminutive runoff via peroneal (03/17, [facility]) -Diet as tolerated -Discontinue qureshieranne -UOOB, AAT, IS -Continue ASA 81 -Will discuss with Dr. Sarabia TREV COLEMAN MD General Surgery Resident, PGY-2 [facility] Please contact surgical international tax manager division merchandise manager 5PM-6AM and weekends - #[phone] VTS Pager - #[phone] Subjective NAEO. Feels good this morning. Wants [...] SURGERY PROGRESS NOTE [id number] ASSESSMENT AND PLAN Tristin Powell is a 85 y.o. male with history of arotic stenosis, HTN, dyslipidemia, HFpEF, ascending/thoracic aortic aneurysm (4.[address] dated 04/2024), CAD (NSTEMI; s/p 3v CABG), paroxysmal a.fib, aortic & mitral valve disease, COPD, CKD stage 3, PAD, s/p left fem to peroneal bypass (2019, [facility]), left TMA who presented to [facility] on 03/14/2025 with worsening RLE pain [...] Walker MD General Surgery Please contact surgical international tax manager division merchandise manager 5PM-6AM and weekends VTS Pager - #[phone] SUBJECTIVE Patient is resting in bed with [...] Murray MD - 03/17/2025 7:58 AM EDT [facility] 03/17/2025 Tristin Powell 1940 [id number] Assessment/Plan: Tristin Powell is a 85 y.o. [...] ischemia: History of PAD. Follows Dr. Beaver ([facility]) and Dr. Sarabia (Vascular Surgery) [...] dose. IV Dilaudid added. 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 Moving well withmild pain.: Decreased [...] left TMA who presented to [facility] on 03/14/2025 with worsening RLE pain [...] PGY-2 [facility] Please contact surgical international tax manager division merchandise manager 5PM-6AM and weekends - #[phone] VTS Pager - #[phone] Subjective NAEO. Is ready for surgery tomorrow, [...] and rubor. He had undergone angiography in [place], with chronic occlusion of an aneurysm/ectatic right [...] Murray MD - 03/16/2025 10:32 AM EDT [facility] 03/16/2025 Tristin Powell 1940 [id number] Assessment/Plan: Tristin Powell is a 85 y.o. [...] Peripheral Artery Disease: Followed by Dr. Beaver ([facility]) and Dr. Sarabia (Vascular Surgery) [...] additional for acute pain. 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 Moving well withmild pain.: Decreased [...] Murray MD - 03/15/2025 9:18 AM EDT [facility] Inpatient Progress Note 03/15/2025 Tristin Powell 1940 [id number] Assessment/Plan: Tristin Powell is a 85 y.o. [...] Peripheral Artery Disease: Followed by Dr. Beaver ([facility]) and Dr. Sarabia (Vascular Surgery) [...] additional for acute pain. 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 Moving well withmild pain.: Left [...] Vascular Cardiology Inpatient Follow-up Heart & Vascular [facility] 03/15/2025 Mirna Fenton CNP [facility] [...] artery disease involving coronary bypass graft of [place] heart without angina pectoris Assessment & Plan [...] Recently underwent RLE angio on 03/12/25 via [facility] in [place] Non-invasive Studies: RLE arterial duplex (03/14/25): 50-99% [...] RLE angiograms dated 03/12/25 and 10/12/23 from [facility]. Plan for RLE angio +/- intervention 03/17/25, with Dr. Mast Continue asa and Plavix therapies We will continue to monitor over the weekend * PAD (peripheral artery disease) ([facility]) Assessment & Plan Longstanding, significant atherosclerotic disease with history of multiple endovascular and surgical interventions as outlined in the body of this note, please reference Plan: Continue ASA and statin therapies as prescribed. Subjective No acute events noted overnight. He is resting in bed comfortably. His exam remains stable. Repeat EKG Final Result by Interface, Lab Results [facility] [place] (03/15/2025 0701) Echocardiogram complete w contrast Final [...] 2 puff 2 puff Inhalation Q4H PRN [place]una perez MD aluminum-magnesium hydroxide-simethicone (MAALOX PLUS) 200-200-20 mg/5 mL suspension 30 mL 30 mL Oral Q4H PRN Muna Otto MD aspirin EC tablet 81 mg 81 mg Oral Daily Demetrice Escobar, PEOPLESOFT PROGRAMMER 81 mg at 03/14/25 1705 atorvastatin (LIPITOR) tablet 80 mg 80 mg Oral Nightly [place] denise MD 80 mg at 03/14/252109 azelastine (ASTELIN) 137 mcg (0.1 %) nasal spray 1 spray 1 spray Each Nare Daily Muna Otto MD calcium carbonate (TUMS) chewable tablet 500 mg 500 mg Oral Daily PRN Muna Otto MD enoxaparin (LOVENOX) syringe 40 mg 40 mg Subcutaneous Daily [place] denise MD furosemide (LASIX) tablet 20 mg 20 mg Oral Every Other Day Muna Otto MD HYDROmorphone (DILAUDID) injection 0.5 mg 0.5 mg Intravenous Q3H PRN [place] perez MD 0.5 mg at 03/14/252109 losartan (COZAAR) tablet 50 mg 50 mg Oral Daily with lunch Muna Otto MD melatonin Tab 5 mg 5 mg Oral Nightly PRN [place]una perez MD metoprolol tartrate (LOPRESSOR) tablet 50 mg 50 mg Oral BID [place]una denise MD 50 mg at 07/18/25 2110 naloxone (NARCAN) injection 0.1 mg 0.1 mg [...] PRN Dashawn Stallings PA-C 5 mL at 03/14/252 And sodium chloride 0.9% (NS) 0-150 mL/hr Intravenous PRN Dashawn Stallings PA-C tamsulosin (FLOMAX) 24 hr capsule 0.4 mg 0.4 mg Oral After evening meal Muna Otto MD zolpidem (AMBIEN) tablet 10 mg 10 mg Oral Nightly Muna Otto MD 10 mg at 03/14/252235 documented in this [id number] NoteMEDONE DISCHARGE SUMMARY Tristin Powell Account: [id number] Admitted: 03/14/2025 Discharge Date/Time: 03/21/25 / 3:57 [...] ischemia: History of PAD. Follows Dr. Beaver ([facility]) and Dr. Sarabia (Vascular Surgery) [...] S/p IV pain meds. CAD: Followed by [facility] Cardiology s/p 3 vessel coronary artery bypass [...] Medications New Medications Details naloxone 4 mg/actuation [place] Commonly known as: NARCAN Administer 1 spray [...] Reasons: visible water re (more content not included)...[facility]07-25-2025 Hospital course Narrative* Uri Voss DO - 03/21/2025 3:45 PM EDT MEDONE DISCHARGE SUMMARY Tristin Powell Account: [id number] Admitted: 03/14/2025 Discharge Date/Time: 03/21/25 3:57 PM [...] ischemia: History of PAD. Follows Dr. Beaver ([facility]) and Dr. Sarabia (Vascular Surgery) [...] S/p IV pain meds. CAD: Followed by [facility] Cardiology s/p 3 vessel coronary artery bypass [...] Medications New Medications Details naloxone 4 mg/actuation [place] Commonly known as: NARCAN Administer 1 spray [...] Physician(s) Family: Flash Lovelace MD, , Address: [address] [place] [address] Follow Up: Physicians, [facility] [address] [place] [address] Follow up Thank you for allowing us to participate in your care. Please follow up with your vascular surgery team after discharge. Please call our office with any questions or concerns. OTHER - NOT IN LIST [place] [address] Additional Information: Patient seen and examined day of discharge. For more information regarding patient's care, including complete radiology reports, please contact [facility] at Patient instructions, including activity, were given to the patient/family at discharge. Please seethe After Visit Summary in the medical record for details. Time spent on discharge: > 30 minutes Completed by: Uri Voss DO on 03/21/25, 3:57 PM documented in this [id number] Hospital Discharge instructions * Discharge Instructions* Beena [...] if you need help quitting smoking: call [phone] ([phone]) or visit [email or web address] for more information. Who to Call: [facility] [place] [facility] Please call the office number at [phone] to confirm your follow-up appointment, or if you haveany questions or concerns. documented in this [id number] Consult note* Markel Dubose RN - 03/21/2025 9:32 AM EDTAssociated Order(s): IP CONSULT TO HOME HEALTH HUB HOME HEALTH CARE DISCHARGE PLAN Consulted for [facility] services: PT, OT Agency preference: [facility] If discharge needs change, please reach out to liaison assigned on treatment team as hub is not notified of new consults once team is following. Thank you. Patients needing wound care or infusions (IVs or enteral feeds) should not discharge until [facility] is completely set up. AddendUm 1688: Rec'd call from Sarah, referral accepted. AVS updated. Addendum 6391: Rec'd msg from Richie MARIO, pt elects outpt therapy. [facility] discontinued and updatesent to Larisa. Is [facility] plan complete or pending? Pt elects outpt tx Name of accepting [facility] - notified Referrals sent to: (names of agencies) Please be advised that agencies have 24 hours to respond to referrals. [facility] (did not send) [facility]? discontinued Verify demographics (discharge address) [address] [facility] [address] [place] What is the primary phone number? [phone] Who is your primary care physician? Flash [...] = Start of Care TCG = Teachable Operational Communication Chief [id number] Consult note* Markel Dubose RN - 03/21/2025 9:32 AM EDT Associated Order(s): IP CONSULT TO HOME HEALTH HUB HOME HEALTH CARE DISCHARGE PLAN Consulted for [facility] services: PT, OT Agency preference: [facility] If discharge needs change, please reach out to liaison assigned on treatment team as hub is not notified of new consults once team is following. Thank you. Patients needing wound care or infusions (IVs or enteral feeds) should not discharge until [facility] is completely set up. AddendUm 1056: Rec'd call from araceli Agarwal accepted. AVS updated. Addendum 7147: Rec'd msg from Richie MARIO, pt elects outpt therapy. [facility] discontinued and updatesent to Sarah. Is [facility] plan complete or pending? Pt elects outpt tx Name of accepting [facility] agency: [facility] - notified Referrals sent to: (names of agencies) Please be advised that agencies have 24 hours to respond to referrals. [facility] (did not send) Sarah Bat[facility] (orders) placed? discontinued Verify demographics (discharge address) [address] [facility] [address] [place] What is the primary phone number? [phone] Who is your primary care physician? Flash [...] = Start of Care TCG = Teachable Operational Communication Chief * Richie Harrison RN - 03/19/2025 8:58 [...] 5 with ampac of 10. Per previous [facility] note, patient was agreeable to [facility]services [...] intolerance. The patient's home setup is a delivery consultant for return to prior level of function. The patient's compliance is a barrier, awareness of own capacity and performance is a delivery consultant to return to prior level of function. [...] Attention: Attends to quiet environment Hearing Status: [facility] Social Interaction: Appropriate, Cooperative, Impulsive Comments: Pt [...] Supine: (Post-session Pt left in EOB position.) Supervisor Sewing Room: bedrails Functional Transfers Sit to Stand: Minimal assist, Moderate assist, 2 person assist Supervisor Sewing Room: wheeled walker Additional Functional Transfer Trial 2: Yes Sit to Stand Trial 2: Contact guard assist, Minimal assist Bed to Chair Trial 2: Contact guard assist, Minimal assist Supervisor Sewing Room Trial 2: wheeled walker Home Living Obtained [...] walker.) Prior Level of Function Level of [place] - Transfers/Ambulation/Mobility: Independent with functional transfers Level of [place] - ADLs: Independent Level of [place] - Homemaking: Independent Driving: Patient drives Vocational: [...] Arthritis Avascular necrosis of bone of hip ([facility]) Claudication COPD (chronic obstructive pulmonary disease) ([facility]) Coronary artery disease Herpes zoster Hyperlipidemia Hypertension PAD (peripheral artery disease) ([facility]) 01/21/2022 Posterior tibial tendinitis of right leg 11/07/2022 Prostate cancer (HCC) Vascular disease Past Surgical History: Procedure Laterality Date AMPUTATION TRANSMETATARSAL Left 10/08/2018 Procedure: LEFT MIDFOOT AMPUTATION; Surgeon: Flynn Mann DPM; Location: [facility] OR; Service: Podiatry ANKLE SURGERY Left BYPASS FEMOROTIBIAL REPAIR/GRAFT Right 03/17/2025 Procedure: RIGHT FEMORAL TO TIBIAL BYPASS WITH ARM VEIN. Angiogram; Surgeon: Mohsen Sarabia MD; Location: [facility] NEURO OR; Service: Gen-Vascular; Laterality: Right; BYPASS PERONEAL FEMORAL Right 09/07/2018 Procedure: BYPASS PERONEAL FEMORAL, RIGHT SAPHENOUS VEIN HARVEST, COMPLETION ANGIOGRAM; Surgeon: Mohsen Sarabia MD; Location: [facility]UR[facility] OR; Service: Cardiovascular CARDIAC CATHETERIZATION Left 09/05/2018 Procedure: Angio Lower Extremity; Surgeon: Ben Hahn MD; Location: [facility] INSPECTOR TESTER SORTER; Service: Cardiovascular CARDIAC SURGERY 2017 triple bypass [...] Plan: Transportation Type: Auto Discharge Plan Status: PACKING ROOM SUPERVISOR consulted for discharge needs. PT recommending therapy 2-3 days per week. OT pending. PACKING ROOM SUPERVISOR met with pt at bedside to discuss HHC level of care. Pt agreeable HHC. Pt with no [preference of agency. Pt's son will be primary caregiver upon discharge and will transport pt home when medically ready. PACKING ROOM SUPERVISOR confirmed pt demographics including address on file, [...] we deliver your care?: No * Nataly Shin PT - 03/15/2025 9:15 AM EDT Physical Therapy PHYSICAL THERAPY EVALUATION and TREATMENT NOTE PHYSICAL THERAPY EVALUATION Skilled Therapy Needs After Discharge Anticipate Resolution of Current Assessment Limitations Including: Mechanical Barriers, Pain Are pattern maker Therapy Services Needed After Discharge: Yes Intensity of pattern maker Therapy: 2-3 days per week Anticipated Duration of pattern maker Therapy: Duration 10 - 30 days PT [...] Standing Balance - Static: Contact guard assist Supervisor Sewing Room - Standing Static: wheeled walker Standing Balance - Dynamic: Contact guard assist Supervisor Sewing Room - Standing Dynamic: same disability aide used for static standing tasks Bed Mobility Rolling: Supervision Supine to Sit: Supervision Sit to Supine: (patient sitting EOB) Supervisor Sewing Room: bedrails Transfers Sit to Stand: Contact guard assist Supervisor Sewing Room: wheeled walker Gait/Locomotion Gait Assistance: Contact guard [...] walker.) Prior Level of Function Level of [place] - Transfers/Ambulation/Mobility: Independent with community ambulation, Independent with household ambulation, Independent with functional transfers Level of [place] - ADLs: Independent Level of [place] - Homemaking: Independent Driving: Patient drives Vocational: [...] Arthritis Avascular necrosis of bone of hip ([facility]) Claudication COPD (chronic obstructive pulmonary disease) ([facility]) Coronary artery disease Herpes zoster Hyperlipidemia Hypertension PAD (peripheral artery disease) ([facility]) 01/21/2022 Posterior tibial tendinitis of right leg 11/07/2022 Prostate cancer ([facility]) Vascular disease Past Surgical History: Procedure Laterality Date AMPUTATION TRANSMETATARSAL Left 10/08/2018 Procedure: LEFT MIDFOOT AMPUTATION; Surgeon: Flynn Mann DPM; Location: [facility] OR; Service: Podiatry ANKLE SURGERY Left BYPASS PERONEAL FEMORAL Right 09/07/2018 Procedure: BYPASS PERONEAL FEMORAL, RIGHT SAPHENOUS VEIN HARVEST, COMPLETION ANGIOGRAM; Surgeon: Mohsen Sarabia MD; Location: [facility] NEURO OR; Service: Cardiovascular CARDIAC CATHETERIZATION Left 09/05/2018 Procedure: Angio Lower Extremity; Surgeon: Ben Hahn MD; Location: [facility] INSPECTOR TESTER SORTER; Service: Cardiovascular CARDIAC SURGERY 2017 triple bypass [...] Vascular Cardiology Inpatient Consult Heart & Vascular [facility] 03/14/2025 Demetrice Escobar CNP [address] [facility] [address] Patient: Tristin Powell Date of : 1940 [...] Recently underwent RLE angio on 03/12/25 via [facility] in [place] Non-invasive Studies: RLE arterial duplex (03/14/25): 50-99% [...] RLE angiograms dated 03/12/25 and 10/12/23 from [facility]. Will review non-invasive studies as obtained earlier today as well as [facility] RLE angiograms with PV attending. Final [...] underwent formal LE angio on 03/12/25 via [facility]. Follows with Dr. Carvalho, cardiology, at [facility]. Last OV 11/2024. Son is [...] was drawn out. Relevant Vascular History: 06/2024: [facility] demonstrating stable coronary artery disease. Patent [...] SVG to PDA) via [facility] 10/2007: [facility] with MARIA ESTHER to LAD and LCx Objective Imaging: I independently reviewed the non-invasive vascular studies and agree with the interpretation(s) ECG 12 Lead Final Result by Interface, Lab Results In [place] [facility] (11/07/2022 1139) Echocardiogram complete w contrast [...] Arthritis Avascular necrosis of bone of hip ([facility]) Claudication COPD (chronic obstructive pulmonary disease) ([facility]) Coronary artery disease Herpes zoster Hyperlipidemia Hypertension PAD (peripheral artery disease) ([facility]) 01/21/2022 Posterior tibial tendinitis of right leg 11/07/2022 Prostate cancer ([facility]) Vascular disease Past Surgical History: Procedure Laterality Date AMPUTATION TRANSMETATARSAL Left 10/08/2018 Procedure: LEFT MIDFOOT AMPUTATION; Surgeon: Flynn Mann DPM; Location: [facility] OR; Service: Podiatry ANKLE SURGERY Left BYPASS PERONEAL FEMORAL Right 09/07/2018 Procedure: BYPASS PERONEAL FEMORAL, RIGHT SAPHENOUS VEIN HARVEST, COMPLETION ANGIOGRAM; Surgeon: Mohsen Sarabia MD; Location: [facility] NEUR[facility] OR; Service: Cardiovascular CARDIAC CATHETERIZATION Left 09/05/2018 Procedure: Angio Lower Extremity; Surgeon: Ben Hahn MD; Location: [facility] INSPECTOR TESTER SORTER; Service: Cardiovascular CARDIAC SURGERY 2017 triple bypass [...] to contact me, my mobile number is [phone]. Respectfully, Demetrice Martinez APRN [facility] Physicians [1] Social [...] He underwent angiography 2 days ago in [place] where hewas found to have progressive disease [...] Arthritis Avascular necrosis of bone of hip ([facility]) Claudication COPD (chronic obstructive pulmonary disease) ([facility]) Coronary artery disease Herpes zoster Hyperlipidemia Hypertension PAD (peripheral artery disease) ([facility]) 01/21/2022 Posterior tibial tendinitis of right leg 11/07/2022 Prostate cancer ([facility]) Vascular disease Allergies: Doxycycline and Gabapentin Current [...] artery as it enters the foot. Impression: [place] 4 critical limb threatening ischemia Advanced peripheral [...] vascular surgery colleagues I personally performed a [id number] diagnostic evaluation on this patient on the [...] 0.5 mg 0.5 mg Intravenous Q3H PRN [place] perez MD naloxone (NARCAN) injection 0.1 mg 0.1 mg Intravenous PRN [place]una denise MD And naloxone (NARCAN) injection 0.4 mg 0.4 mg Intravenous PRN [place] denise MD ondansetron (ZOFRAN) injection 4 mg 4 mg Intravenous Q6H PRN [place] perez MD oxyCODONE-acetaminophen (PERCOCET) 5-325 mg per tablet 1 tablet 1 tablet Oral Q6H PRN [place]una perez MD sodium chloride (PF) (NS) flush [...] 2 (two) timesa day 1/ tab . azelastine (ASTELIN) 137 mcg (0.1 [...] vaccine urea (CARMOL) 40 % Crea * Aime, Beena G, MD - 03/14/2025 11:56 AM EDT VASCULAR SURGERY CONSULT [id number] Reason for Consult: RLE rest pain ASSESSMENT [...] left TMA who presented to [facility] on 03/14/2025 with worsening RLE pain [...] PGY-2 [facility] Please contact surgical international tax manager division merchandise manager 5PM-6AM and weekends - #[phone] MAS Pager - #[phone] Admitted with these risk variables:None. Please see [...] Arthritis Avascular necrosis of bone of hip ([facility]) Claudication COPD (chronic obstructive pulmonary disease) ([facility]) Coronary artery disease Herpes zoster Hyperlipidemia Hypertension PAD (peripheral artery disease) ([facility]) 01/21/2022 Posterior tibial tendinitis of right leg 11/07/2022 Prostate cancer ([facility]) Vascular disease Past Surgical History: Procedure Laterality Date AMPUTATION TRANSMETATARSAL Left 10/08/2018 Procedure: LEFT MIDFOOT AMPUTATION; Surgeon: Flynn Mann DPM; Location: [facility] OR; Service: Podiatry ANKLE SURGERY Left BYPASS PERONEAL FEMORAL Right 09/07/2018 Procedure: BYPASS PERONEAL FEMORAL, RIGHT SAPHENOUS VEIN HARVEST, COMPLETION ANGIOGRAM; Surgeon: Mohsen Sarabia MD; Location: [facility]UR[facility] OR; Service: Cardiovascular CARDIAC CATHETERIZATION Left 09/05/2018 Procedure: Angio Lower Extremity; Surgeon: Ben Hahn MD; Location: [facility] INSPECTOR TESTER SORTER; Service: Cardiovascular CARDIAC SURGERY 2017 triple bypass [...] Resource Strain: Low Risk (06/21/2024) Received from [facility] Overall Financial Resource Strain (CARDIA) Difficulty of Paying Living Expenses: Not hard at all Food Insecurity: No Food Insecurity (06/21/2024) [facility] from [facility] [facility] Hunger Vital Sign Worried About Running Out of Food in the Last Year: Never true Ran Out of Food in the Last Year: Never true Transportation Needs: No Transportation Needs (06/21/2024) Received from [facility] PRAPARE - Transportation Lack of Transportation (Medical): No Lack of Transportation (Non-Medical): No Physical Activity: Insufficiently Active (06/21/2024) Received from [facility] Exercise Vital Sign Days of Exercise per Week: 7 days Minutes of Exercise per Session: 10 min Stress: No Stress Concern Present (06/21/2024) Received from [facility] [place] [facility] [employer] - Occupational Stress Questionnaire Feeling of Stress : Not at all Housing Stability: Low Risk (06/21/2024) Received from [facility] Housing Stability Vital Sign Unable [...] personally examined the patient and agree with resident/CRUDE TESTER/PA assessment and plan with the following additional findings. Pt known to me with CLTI of the RLE with rest pain and early ischemic skin changes. Plan for R fem tib bypass on Monday for limb salvage documented in this [id number] Plan of care note* Plan of Care [...] Absence of pressure injury Outcome: Partially Met [id number] Miscellaneous Notes* Plan of Care - [place] [...] Partially Met * Initial Assessments - Serenity Wilson, RD - 03/20/2025 2:48 PM EDT 03/20/2025: [...] (HCC) Claudication COPD (chronic obstructive pulmonary disease) ([facility]) Coronary artery disease Herpes zoster Hyperlipidemia Hypertension PAD (peripheral artery disease) ([facility]) 01/21/2022 Posterior tibial tendinitis of right leg 11/07/2022 Prostate cancer ([facility]) Vascular disease Past Surgical History: Procedure Laterality Date AMPUTATION TRANSMETATARSAL Left 10/08/2018 Procedure: LEFT MIDFOOT AMPUTATION; Surgeon: Flynn Mann DPM; Location: [facility] OR; Service: Podiatry ANKLE SURGERY Left BYPASS FEMOROTIBIAL REPAIR/GRAFT Right 03/17/2025 Procedure: RIGHT FEMORAL TO TIBIAL BYPASS WITH ARM VEIN. Angiogram; Surgeon: Mohsen Sarabia MD; Location: [facility] NEURO OR; Service: Gen-Vascular; Laterality: Right; BYPASS PERONEAL FEMORAL Right 09/07/2018 Procedure: BYPASS PERONEAL FEMORAL, RIGHT SAPHENOUS VEIN HARVEST, COMPLETION ANGIOGRAM; Surgeon: Mohsen Sarabia MD; Location: [facility]UR[facility] OR; Service: Cardiovascular CARDIAC CATHETERIZATION Left 09/05/2018 Procedure: Angio Lower Extremity; Surgeon: Ben Hahn MD; Location: [facility] INSPECTOR TESTER SORTER; Service: Cardiovascular CARDIAC SURGERY 2017 triple bypass [...] No Nutrition Related Allergies noted Cultural or Jew Dietary Needs :No Cultural or Jew Dietary needs noted Difficulty Chewing or Swallowing: [...] Nightly Continuous Infusions: sodium chloride Serenity Wilson RD,LD,[facility] or in EpicPledge Secure Chat * Plan of Care - [...] 1940 (85 y.o.) Date of Service: 03/17/2025 [facility]: [id number] Procedure(s): RIGHT FEMORAL TO TIBIAL BYPASS WITH ARM VEIN. Angiogram Pre-Operative Diagnoses: * PERIPHERAL ARTERY DISEASE Post-Operative Diagnoses: same Surgeons and Role: * Mohsen Sarabia MD - Primary * Karina Orozco MD - Resident - Assisting Anesthesiologist: Serjio Olivarez MD; Muna Gil MD TRACTOR ENGINE MECHANIC: Viviana Dhillon CRNA Plate Worker Helper: Lori Diaz RN Masticator: Jose C Ambrose, TECHNOLOGIST Plate Worker Helper Relief: Millicent Cedeño RN; Arlene Watson RN Scrub Person Relief: Izabel Bosch RN Plate Worker Helper Orientee: Kaylie Jason RN Plate Worker Helper Preceptor: Izabel Bosch RN Scrub Person Preceptor: [...] Implant Name Type Inv. Item Serial No. Assistant Coach Lot No. LRB No. Used Action HEMOSTAT 2 X 4IN SURGICEL FIBRILLAR - SNA HEMOSTAT 2 X 4IN SURGICEL FIBRILLAR NA ETHICON [id number] Right 1 Implanted SEALANT 10ML HEMOSTATIC MATRIX FAST PREP FLOSEAL W/RECOTHROM - [id number] SEALANT 10ML HEMOSTATIC MATRIX FAST PREP FLOSEAL W/RECOTHROM [employer] [id number] Right 1 Implanted Drain(s): Urethral Catheter Non-latex;Straight-tip [...] - 03/14/2025 4:35 PM EDT Added to dental laboratory technician apprentice schedule for 03/17/25, with Dr. Rohan for a RLE angio +/- intervention. Orders placed. 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 ASA and clopidogrel initiated. Again, no heparin gtt required unless needed in the setting of hx of paroxysmal a.fib (historicallyon Xarelto; however, has been held over the past week 2/2 RLE angio at [facility] as performed on 03/12/25). Additionally, please [...] RLE angiogram from March 12, 2025 from [facility] sent electronically. This was sent to Juana Escobar NP. She was able to open and view. Images sent to appropriate staff per Juana Escobar CNP. Called and notified the patient's daughter that she does not have to get the disc from [facility] to [facility]. * Assessment & Plan Note - Demetrice [...] artery disease involving coronary bypass graft of [place] heart without angina pectoris S/p 3v CABG [...] Recently underwent RLE angio on 03/12/25 via [facility] in [place] Non-invasive Studies: RLE arterial duplex (03/14/25): 50-99% [...] statin therapies as prescribed. documented in this [id number] Initial evaluation note* Initial Assessments - Serenity [...] Arthritis Avascular necrosis of bone of hip ([facility]) Claudication COPD (chronic obstructive pulmonary disease) ([facility]) Coronary artery disease Herpes zoster Hyperlipidemia Hypertension PAD (peripheral artery disease) ([facility]) 01/21/2022 Posterior tibial tendinitis of right leg 11/07/2022 Prostate cancer ([facility]) Vascular disease Past Surgical History: Procedure Laterality Date AMPUTATION TRANSMETATARSAL Left 10/08/2018 Procedure: LEFT MIDFOOT AMPUTATION; Surgeon: Flynn Mann DPM; Location: [facility]; Service: Podiatry ANKLE SURGERY Left BYPASS FEMOROTIBIAL REPAIR/GRAFT Right 03/17/2025 Procedure: RIGHT FEMORAL TO TIBIAL BYPASS WITH ARM VEIN. Angiogram; Surgeon: Mohsen Sarabia MD; Location: [facility] NEUR[facility] OR; Service: Gen-Vascular; Laterality: Right; BYPASS PERONEAL FEMORAL Right 09/07/2018 Procedure: BYPASS PERONEAL FEMORAL, RIGHT SAPHENOUS VEIN HARVEST, COMPLETION ANGIOGRAM; Surgeon: Mohsen Sarabia MD; Location: [facility] OR; Service: Cardiovascular CARDIAC CATHETERIZATION Left 09/05/2018 Procedure: Angio Lower Extremity; Surgeon: Ben Hahn MD; Location: [facility] INSPECTOR TESTER SORTER; Service: Cardiovascular CARDIAC SURGERY 2017 triple bypass [...] No Nutrition Related Allergies noted Cultural or Jew Dietary Needs :No Cultural or Jew Dietary needs noted Difficulty Chewing or Swallowing: [...] Oral Nightly Continuous Infusions: sodium chloride Serenity Wilson, RD,LD,[facility] or in EpicPledge Secure Chat [id number] NoteMedOne Inpatient Progress Note 03/20/2025 Tristin Powell 1940 [id number] Assessment/Plan: Tristin Powell is a 85 y.o. [...] ischemia: History of PAD. Follows Dr. Beaver ([facility]) and Dr. Sarabia (Vascular Surgery) [...] S/p IV pain meds. 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 Moving well with mild pain.: [...] 4.86 4.34* 5.05 HG (more content not included)...[facility]07-24-2025 Note VASCULAR SURGERY PROGRESS NOTE Patient Name: [...] left TMA who presented to [facility] on 03/14/2025 with worsening RLE pain [...] PGY-1 [facility] Please contact surgical international tax manager division merchandise manager 5PM-6AM and weekends - #[phone] VTS Pager - #[phone] Subjective NAEO. Has been ambulating. New bruising [...] reviewed AUTHENTICATED BY TREV COLEMAN, ON 03/20/2025 07:05:30[facility] 03-20-2025 Plan of care note* Plan of [...] Absence of pressure injury Outcome: Partially Met [id number] Consult note* Richie Harrison RN - 03/19/2025 [...] 5 with ampac of 10. Per previous [facility] note, patient was agreeable to hhcservices [...] ready for discharge. Assessment and Background Information: [id number] Consult note* Gina Anand - 03/19/2025 8:45 [...] intolerance. The patient's home setup is a delivery consultant for return to prior level of function. The patient's compliance is a barrier, awareness of own capacity and performance is a delivery consultant to return to prior level of function. [...] Supine: (Post-session Pt left in EOB position.) Supervisor Sewing Room: bedrails Functional Transfers Sit to Stand: Minimal assist, Moderate assist, 2 person assist Supervisor Sewing Room: wheeled walker Additional Functional Transfer Trial 2: Yes Sit to Stand Trial 2: Contact guard assist, Minimal assist Bed to Chair Trial 2: Contact guard assist, Minimal assist Supervisor Sewing Room Trial 2: wheeled walker Home Living Obtained [...] walker.) Prior Level of Function Level of [place] - Transfers/Ambulation/Mobility: Independent with functional transfers Level of [place] - ADLs: Independent Level of [place] - Homemaking: Independent Driving: Patient drives Vocational: [...] Arthritis Avascular necrosis of bone of hip ([facility]) Claudication COPD (chronic obstructive pulmonary disease) ([facility]) Coronary artery disease Herpes zoster Hyperlipidemia Hypertension PAD (peripheral artery disease) ([facility]) 01/21/2022 Posterior tibial tendinitis of right leg 11/07/2022 Prostate cancer ([facility]) Vascular disease Past Surgical History: Procedure Laterality Date AMPUTATION TRANSMETATARSAL Left 10/08/2018 Procedure: LEFT MIDFOOT AMPUTATION; Surgeon: Flynn Mann DPM; Location: [facility] OR; Service: Podiatry ANKLE SURGERY Left BYPASS FEMOROTIBIAL REPAIR/GRAFT Right 03/17/2025 Procedure: RIGHT FEMORAL TO TIBIAL BYPASS WITH ARM VEIN. Angiogram; Surgeon: Mohsen Sarabia MD; Location: [facility] OR; Service: Gen-Vascular; Laterality: Right; BYPASS PERONEAL FEMORAL Right 09/07/2018 Procedure: BYPASS PERONEAL FEMORAL, RIGHT SAPHENOUS VEIN HARVEST, COMPLETION ANGIOGRAM; Surgeon: Mohsen Sarabia MD; Location: [facility] OR; Service: Cardiovascular CARDIAC CATHETERIZATION Left 09/05/2018 Procedure: Angio Lower Extremity; Surgeon: Ben Hahn MD; Location: [facility] INSPECTOR TESTER SORTER; Service: Cardiovascular CARDIAC SURGERY 2017 triple bypass [...] Alcantara, OT at 03/19/2025 4:38 PM EDT [id number] NoteMedOne Inpatient Progress Note 03/19/2025 Tristin Powell 1940 [id number] Assessment/Plan: Tristin Powell is a 85 y.o. [...] ischemia: History of PAD. Follows Dr. Beaver ([facility]) and Dr. Sarabia (Vascular Surgery) [...] added, wean as able. 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 Moving well with mild pain.: [...] WBC K/mcL 4.34* 5 (more content not included)...[facility] 03-19-2025 NoteVASCULAR SURGERY PROGRESS NOTE Patient Name: [...] left TMA who presented to [facility] on 03/14/2025 with worsening RLE pain [...] PGY-1 [facility] Please contact surgical international tax manager division merchandise manager 5PM-6AM and weekends - #[phone] VTS Pager - #[phone] Subjective NAEO. Was able to get up [...] reviewed AUTHENTICATED BY TREV COLEMAN, ON 03/19/2025 07:06:48[facility] 03-18-2025 NoteMedOne Inpatient Progress Note 03/18/2025 Tristin Powell 1940 [id number] Assessment/Plan: Tristin Powell is a 85 y.o. [...] ischemia: History of PAD. Follows Dr. Beaver ([facility]) and Dr. Sarabia (Vascular Surgery) [...] dose. IV Dilaudid added. 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 Moving well with mild pain.: [...] Lab Units 03/18/25 04 (more content not included)...[facility]07-22-2025 Note VASCULAR SURGERY PROGRESS NOTE Patient Name: [...] left TMA who presented to [facility] on 03/14/2025 with worsening RLE pain [...] PGY-2 [facility] Please contact surgical international tax manager division merchandise manager 5PM-6AM and weekends - #[phone] VTS Pager - #[phone] Subjective NAEO. Feels good this morning. Wants [...] reviewed AUTHENTICATED BY TREV COLEMAN ON 03/18/2025 06:35:17[facility] 03-18-2025 History of Present illness Narrative* Brenna Galloway RN - 03/18/2025 5:36 AM EDT Pt seen by PV cardiology while at [facility]. Per Catina Calixto CNP, no PV cardiology follow up needed, ptto f/u with vascular surgery. documented in this [id number] Plan of care note* Plan of Care [...] Absence of pressure injury Outcome: Partially Met [id number] NoteVASCULAR SURGERY PROGRESS NOTE Patient Name: Tristin Powell [facility] #: [id number] ASSESSMENT AND PLAN Tristin Powell is a 85 y.o. male with history of arotic stenosis, HTN, dyslipidemia, HFpEF, ascending/thoracic aortic aneurysm (4.[address] dated 04/2024), CAD (NSTEMI; s/p 3v CABG), paroxysmal a.fib, aortic & mitral valve disease, COPD, CKD stage 3, PAD, s/p left fem to peroneal bypass ([facility], [facility]), left TMA who presented to [facility] on 03/14/2025 with worsening RLE pain [...] Walker MD General Surgery Please contact surgical international tax manager division merchandise manager 5PM-6AM and weekends VTS Pager - #[phone] SUBJECTIVE Patient is resting in bed with [...] reads. AUTHENTICATED BY ABI WALKER, ON 03/18/2025 03:54:39[facility] Procedure note* Brief Op Note - Karina Orozco MD - 03/17/2025 4:30 PM EDT Brief Post Operative Note Patient Name: Tristin Powell : 1940 (85 y.o.) Date of Service: 03/17/2025 CSN: [id number] Procedure(s): RIGHT FEMORAL TO TIBIAL BYPASS WITH ARM VEIN. Angiogram Pre-Operative Diagnoses: * PERIPHERAL ARTERY DISEASE Post-Operative Diagnoses: same Surgeons and Role: * Mohsen Sarabia MD - Primary * Karina Orozco MD - Resident - Assisting Anesthesiologist: Serjio Olivarez MD; Muna Gil MD TRACTOR ENGINE MECHANIC: Viviana Dhillon CRNA Plate Worker Helper: Lori Diaz RN Masticator: Jose C Ambrose, TECHNOLOGIST Plate Worker Helper Relief: Millicent Cedeño RN; Arlene Watson RN Scrub Person Relief: Izabel Bosch RN Plate Worker Helper Orientee: Kaylie Jason RN Plate Worker Helper Preceptor: Izabel Bosch RN Scrub Person Preceptor: [...] Implant Name Type Inv. Item Serial No. Assistant Coach Lot No. LRB No. Used Action HEMOSTAT 2 X 4IN SURGICEL FIBRILLAR - SNA HEMOSTAT 2 X 4IN SURGICEL FIBRILLAR NA ETHICON [id number] Right 1 Implanted SEALANT 10ML HEMOSTATIC MATRIX FAST PREP FLOSEAL W/RECOTHROM - [id number] SEALANT 10ML HEMOSTATIC MATRIX FAST PREP FLOSEAL W/RECOTHROM [place] [employer] [id number] Right 1 Implanted Drain(s): Urethral Catheter Non-latex;Straight-tip [...] NO Karina Orozco MD 03/17/2025 4:30 PM [facility] Work Phone: 1(712) 153-883307-21-2025 Attending History and physical note* Mohsen Sarabia MD - 03/17/2025 11:36 AM EDT INTERVAL HISTORY AND PHYSICAL Patient Name: Tristin Powell Admit Date: [id number] MR #: [id number] : 1940 The H&P has been reviewed [...] left TMA who presented to [facility] on 03/14/2025 with worsening RLE pain [...] PGY-2 [facility] Please contact surgical international tax manager division merchandise manager 5PM-6AM and weekends - #[phone] MAS Pager - #[phone] Admitted with these risk variables:None. Please see [...] Arthritis Avascular necrosis of bone of hip ([facility]) Claudication COPD (chronic obstructive pulmonary disease) ([facility]) Coronary artery disease Herpes zoster Hyperlipidemia Hypertension PAD (peripheral artery disease) ([facility]) 01/21/2022 Posterior tibial tendinitis of right leg 11/07/2022 Prostate cancer ([facility]) Vascular disease Past Surgical History: Procedure Laterality Date AMPUTATION TRANSMETATARSAL Left 10/08/2018 Procedure: LEFT MIDFOOT AMPUTATION; Surgeon: Flynn Mann DPM; Location: [facility] OR; Service: Podiatry ANKLE SURGERY Left BYPASS PERONEAL FEMORAL Right 09/07/2018 Procedure: BYPASS PERONEAL FEMORAL, RIGHT SAPHENOUS VEIN HARVEST, COMPLETION ANGIOGRAM; Surgeon: Mohsen Sarabia MD; Location: [facility]UR[facility] OR; Service: Cardiovascular CARDIAC CATHETERIZATION Left 09/05/2018 Procedure: Angio Lower Extremity; Surgeon: Ben Hahn MD; Location: [facility] INSPECTOR TESTER SORTER; Service: Cardiovascular CARDIAC SURGERY 2017 triple bypass [...] Resource Strain: Low Risk (06/21/2024) Received from [facility] Overall Financial Resource Strain (CARDIA) Difficulty of Paying Living Expenses: Not hard at all Food Insecurity: No Food Insecurity (06/21/2024) Received from [facility] Hunger Vital Sign Worried About Running Out of Food in the Last Year: Never true Ran Out of Food in the Last Year: Never true Transportation Needs: No Transportation Needs (06/21/2024) Received from [facility] PRAPARE - Transportation Lack of Transportation (Medical): No Lack of Transportation (Non-Medical): No Physical Activity: Insufficiently Active (06/21/2024) Received from [facility] Exercise Vital Sign Days of Exercise per Week: 7 days Minutes of Exercise per Session: 10 min Stress: No Stress Concern Present (06/21/2024) Received from [facility] [place] [facility] [employer] Health - Occupational Stress Questionnaire Feeling of Stress : Not at all Housing Stability: Low Risk (06/21/2024) Received from [facility] Housing Stability Vital Sign Unable to Pay for Housing in the Last Year: No Number of Times Moved in the Last Year: 0 Homeless in the Last Year: No Cosigned by Mohsen Sarabia MD at 03/16/2025 10:33 AM EDT [employer] Work Phone: 1(783) 409-630707-21-2025 History and physical note* Mohsen Sarabia MD - 03/17/2025 11:36 AM EDT INTERVAL HISTORY AND PHYSICAL Patient Name: Tristin Powell Admit Date: [id number] MR #: [id number] : 1940 The H&P has been reviewed [...] left TMA who presented to [facility] on 03/14/2025 with worsening RLE pain [...] PGY-2 [facility] Please contact surgical international tax manager division merchandise manager 5PM-6AM and weekends - #[phone] VTS Pager - #[phone] Admitted with these risk variables:None. Please see [...] (HCC) Claudication COPD (chronic obstructive pulmonary disease) ([facility]) Coronary artery disease Herpes zoster Hyperlipidemia Hypertension PAD (peripheral artery disease) ([facility]) 01/21/2022 Posterior tibial tendinitis of right leg 11/07/2022 Prostate cancer (HCC) Vascular disease Past Surgical History: Procedure Laterality Date AMPUTATION TRANSMETATARSAL Left 10/08/2018 Procedure: LEFT MIDFOOT AMPUTATION; Surgeon: Flynn Mann DPM; Location: [facility]; Service: Podiatry ANKLE SURGERY Left BYPASS PERONEAL FEMORAL Right 09/07/2018 Procedure: BYPASS PERONEAL FEMORAL, RIGHT SAPHENOUS VEIN HARVEST, COMPLETION ANGIOGRAM; Surgeon: Mohsen Sarabia MD; Location: [facility] OR; Service: Cardiovascular CARDIAC CATHETERIZATION Left 09/05/2018 Procedure: Angio Lower Extremity; Surgeon: Ben Hahn MD; Location: [facility] INSPECTOR TESTER SORTER; Service: Cardiovascular CARDIAC SURGERY 2017 triple bypass [...] Resource Strain: Low Risk (06/21/2024) Received from [facility] Overall Financial Resource Strain (CARDIA) Difficulty of Paying Living Expenses: Not hard at all Food Insecurity: No Food Insecurity (06/21/2024) Received from [facility] Hunger Vital Sign Worried About Running Out of Food in the Last Year: Never true Ran Out of Food in the Last Year: Never true Transportation Needs: No Transportation Needs (06/21/2024) Received from [facility] PRAPARE - Transportation Lack of Transportation (Medical): No Lack of Transportation (Non-Medical): No Physical Activity: Insufficiently Active (06/21/2024) Received from [facility] Exercise Vital Sign Days of Exercise per Week: 7 days Minutes of Exercise per Session: 10 min Stress: No Stress Concern Present (06/21/2024) Received from [facility] [place] [facility] [employer] [facility] - Occupational Stress Questionnaire Feeling of Stress : Not at all Housing Stability: Low Risk (06/21/2024) Received from [facility] Housing Stability Vital Sign Unable to Pay for Housing in the Last Year: No Number of Times Moved in the Last Year: 0 Homeless in the Last Year: No Cosigned by Mohsen Sarabia MD at 03/16/2025 10:33 AM EDT * Muna Otto MD - 03/14/2025 1:21 PM EDT [facility] History and Physical Note 03/14/25 Tristin Powell 1940 [id number] Assessment/Plan: Tristin Powell is a 85 y.o. [...] Peripheral Artery Disease: Followed by Dr. Beaver ([facility]) and Dr. Sarabia (Vascular Surgery) [...] additional for acute pain. CAD: Followed by [facility] Cardiology s/p 3 vessel coronary artery bypass grafting in 2017 and 7 stents. Chronic Diastolic Heart Failure: TTE 04/2024: LVEF 55% grade 1 diastolic dysfunction, moderate aortic regurgitation, moderate mitral regurgitation, mild tricuspid regurgitation. Appeared euvolemic on admission. Continued home losartan and lasix every other day. Paroxysmal Afib: [id number] of 5. Xarelto as above (no indication [...] lovenox. 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 Barraza (Vascular Surgery) - likely angiogram on Monday; no surgical intervention. ROS: 10 systems were reviewed and negative, except as noted above. Past Medical, Surgical, Social, Family History: Past Medical History: Diagnosis Date Arthritis Avascular necrosis of bone of hip ([facility]) Claudication COPD (chronic obstructive pulmonary disease) ([facility]) Coronary artery disease Herpes zoster Hyperlipidemia Hypertension PAD (peripheral artery disease) ([facility]) 01/21/2022 Posterior tibial tendinitis of right leg 11/07/2022 Prostate cancer ([facility]) Vascular disease Past Surgical History: Procedure Laterality Date AMPUTATION TRANSMETATARSAL Left 10/08/2018 Procedure: LEFT MIDFOOT AMPUTATION; Surgeon: Flynn Mann DPM; Location: [facility] OR; Service: Podiatry ANKLE SURGERY Left BYPASS PERONEAL FEMORAL Right 09/07/2018 Procedure: BYPASS PERONEAL FEMORAL, RIGHT SAPHENOUS VEIN HARVEST, COMPLETION ANGIOGRAM; Surgeon: Mohsen Sarabia MD; Location: [facility] NEURO OR; Service: Cardiovascular CARDIAC CATHETERIZATION Left 09/05/2018 Procedure: Angio Lower Extremity; Surgeon: Ben Hahn MD; Location: [facility] INSPECTOR TESTER SORTER; Service: Cardiovascular CARDIAC SURGERY 2017 triple bypass [...] 2 (two) timesa day 1/ tab . Calmoseptine 0.44-20.6 % Oint (Patient [...] to contact me via the [facility] Directory if any errorhas made critical portions of the note difficult to interpret. [1] Social History Socioeconomic History Marital status: Tobacco Use Smoking status: Never Smokeless tobacco: Never Vaping Use Vaping status: Never Used Substance and Sexual Activity Alcohol use: Not Currently Drug use: Never Sexual activity: Not Currently Social Drivers of Health Financial Resource Strain: Low Risk (06/21/2024) Received from [facility] Overall Financial Resource Strain (CARDIA) Difficulty of Paying Living Expenses: Not hard at all Food Insecurity: No Food Insecurity (06/21/2024) Received from [facility] Hunger Vital Sign Worried About Running Out of Food in the Last Year: Never true Ran Out of Food in the Last Year: Never true Transportation Needs: No Transportation Needs (06/21/2024) Received from [facility] PRAPARE - Transportation Lack of Transportation (Medical): No Lack of Transportation (Non-Medical): No Physical Activity: Insufficiently Active (06/21/2024) Received from [facility] Exercise Vital Sign Days of Exercise per Week: 7 days Minutes of Exercise per Session: 10 min Stress: No Stress Concern Present (06/21/2024) Received from [facility] [place] [employer] - Occupational Stress Questionnaire Feeling of Stress : Not at all Housing Stability: Low Risk (06/21/2024) Received from [facility] Housing Stability Vital Sign Unable to Pay for Housing in the Last Year: No Number of Times Moved in the Last Year: 0 Homeless in the Last Year: No documented in this [id number] Progress note* Quick Note - Catina Calixto CNP - [...] available as needed for any cardiac issues. [id number] Note[facility] Inpatient Progress Note 03/17/2025 Tristin Powell 1940 [id number] Assessment/Plan: Tristin Powell is a 85 y.o. [...] ischemia: History of PAD. Follows Dr. Beaver ([facility]) and Dr. Sarabia (Vascular Surgery) [...] dose. IV Dilaudid added. 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 Moving well with mild pain.: [...] mg Oral After evening (more content not included)...[facility]07-21-2025 Note* [facility] - Yolanda Mcgee, PT - 03/17/2025 7:25 AM EDT PHYSICAL THERAPY VISIT VARIANCE NOTE Attempted to see patient at this time, but unable secondary to: Awaiting Medical Clearance (comment) (scheduled for OR today). Will follow up as appropriate. [id number] Note* [facility] - Demetrice Rivera OT - 03/17/2025 7:22 AM EDT OCCUPATIONAL THERAPY VISIT VARIANCE NOTE Attempted to see patient at this time, but unable secondary to: Awaiting Medical Clearance (Pending OR today). Will follow up as appropriate. [id number] NoteVASCULAR SURGERY PROGRESS NOTE Patient Name: Tristin [...] left TMA who presented to [facility] on 03/14/2025 with worsening RLE pain [...] PGY-2 [facility] Please contact surgical international tax manager division merchandise manager 5PM-6AM and weekends - #[phone] VTS Pager - #[phone] Subjective NAEO. Is ready for surgery tomorrow, [...] reviewed AUTHENTICATED BY BEENA BARRAZA, ON 03/16/2025 11:03:23[facility]07-20-2025 NoteEndovascular team note: I have seen and [...] and rubor. He had undergone angiography in [place], with chronic occlusion of an aneurysm/ectatic right [...] option. AUTHENTICATED BY MARY MAST, ON 03/16/2025 10:52:[facility] Progress Note 03/16/2025 Tristin Powell 1940 [id number] Assessment/Plan: Tristin Powell is a 85 y.o. [...] Peripheral Artery Disease: Followed by Dr. Beaver ([facility]) and Dr. Sarabia (Vascular Surgery) [...] additional for acute pain. 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 Moving well with mild pain.: [...] K/mcL 159 -- 144* (more content not included)...[facility] 03-15-2025 Progress note* Quick Note - Yarely [...] Verified by note author and VAN Jean. [id number] Consult note* Joanna Prakash LSW - 03/15/2025 [...] Plan: Transportation Type: Auto Discharge Plan Status: PACKING ROOM SUPERVISOR consulted for discharge needs. PT recommending therapy 2-3 days per week. OT pending. PACKING ROOM SUPERVISOR met with pt at bedside to discuss HHC level of care. Pt agreeable HHC. Pt with no [preference of agency. Pt's son will be primary caregiver upon discharge and will transport pt home when medically ready. PACKING ROOM SUPERVISOR confirmed pt demographics including address on file, [...] impact how we deliver your care?: No [id number] [facility] Inpatient Progress Note 03/15/2025 Tristin Powell 1940 [id number] Assessment/Plan: Tristin Powell is a 85 y.o. [...] Peripheral Artery Disease: Followed by Dr. Beaver ([facility]) and Dr. Sarabia (Vascular Surgery) s/p left femoral to peroneal bypass using contralateral reverse greater saphenous vein and partial left foot amputation (09/07/2018 - Dr. Sarbaia). S/p angiogram 03/12/25 (Dr. Beaver) with balloon [...] additional for acute pain. 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 Moving well with mild pain.: [...] HGB g/dL 11.7* 13.2* (more content not included)...[facility]07-19-2025 Consult note* Nataly Shin, PT - 03/15/2025 9:15 AM EDT Physical Therapy PHYSICAL THERAPY EVALUATION and TREATMENT NOTE PHYSICAL THERAPY EVALUATION Skilled Therapy Needs After Discharge Anticipate Resolution of Current Assessment Limitations Including: Mechanical Barriers, Pain Are pattern maker Therapy Services Needed After Discharge: Yes Intensity of pattern maker Therapy: 2-3 days per week Anticipated Duration of pattern maker Therapy: Duration 10 - 30 days PT [...] Standing Balance - Static: Contact guard assist Supervisor Sewing Room - Standing Static: wheeled walker Standing Balance - Dynamic: Contact guard assist Supervisor Sewing Room - Standing Dynamic: same disability aide used for static standing tasks Bed Mobility Rolling: Supervision Supine to Sit: Supervision Sit to Supine: (patient sitting EOB) Supervisor Sewing Room: bedrails Transfers Sit to Stand: Contact guard assist Supervisor Sewing Room: wheeled walker Gait/Locomotion Gait Assistance: Contact guard [...] walker.) Prior Level of Function Level of [place] - Transfers/Ambulation/Mobility: Independent with community ambulation, Independent with household ambulation, Independent with functional transfers Level of [place] - ADLs: Independent Level of [place] - Homemaking: Independent Driving: Patient drives Vocational: [...] Arthritis Avascular necrosis of bone of hip ([facility]) Claudication COPD (chronic obstructive pulmonary disease) ([facility]) Coronary artery disease Herpes zoster Hyperlipidemia Hypertension PAD (peripheral artery disease) ([facility]) 01/21/2022 Posterior tibial tendinitis of right leg 11/07/2022 Prostate cancer ([facility]) Vascular disease Past Surgical History: Procedure Laterality Date AMPUTATION TRANSMETATARSAL Left 10/08/2018 Procedure: LEFT MIDFOOT AMPUTATION; Surgeon: Flynn Mann DPM; Location: [facility] OR; Service: Podiatry ANKLE SURGERY Left BYPASS PERONEAL FEMORAL Right 09/07/2018 Procedure: BYPASS PERONEAL FEMORAL, RIGHT SAPHENOUS VEIN HARVEST, COMPLETION ANGIOGRAM; Surgeon: Mohsen Sarabia MD; Location: [facility] NEURO OR; Service: Cardiovascular CARDIAC CATHETERIZATION Left 09/05/2018 Procedure: Angio Lower Extremity; Surgeon: Ben Hahn MD; Location: [facility] INSPECTOR TESTER SORTER; Service: Cardiovascular CARDIAC SURGERY 2017 triple bypass [...] hospital or completion of Physical Therapy Plan. [id number] NotePeripheral Vascular Cardiology Inpatient Follow-up Heart & Vascular [facility] 03/15/2025 Mirna Fenton CNP [facility] [...] artery disease involving coronary bypass graft of [place] heart without angina pectoris Assessment & Plan [...] Recently underwent RLE angio on 03/12/25 via [facility] in [place] Non-invasive Studies: RLE arterial duplex (03/14/25): 50-99% [...] RLE angiograms dated 03/12/25 and 10/12/23 from [facility]. Plan for RLE angio +/- [...] Final Result by Interface, Lab Results In [place] (03/15/2025 0701) Echocardiogram complete w contrast [...] Oral Q4H While a (more content not included)...[facility]07-18-2025 Emergency department Note* Tiburcio Damon RN - 03/14/2025 5:53 PM EDT Pt placed on 2L NC now [id number] Emergency department Note* Tiburcio Damon RN - 03/14/2025 5:53 PM EDT Pt placed on 2L NC now * Lorena Bethea - 03/14/2025 1:14 PM EDT MEDONE to write admission orders [id number] * Elaine Macdonald MD - 03/14/2025 12:26 PM EDT ED PROVIDER NOTE [facility] EMERGENCY DEPARTMENT Patient Name: Tristin Powell [...] User Index [EK] Elaine Macdonald MD [facility] Data: I saw and evaluated the [...] kg (250 lb) - Refer to [facility] section above for additional physical exam [...] Arthritis Avascular necrosis of bone of hip ([facility]) Claudication COPD (chronic obstructive pulmonary disease) ([facility]) Coronary artery disease Herpes zoster Hyperlipidemia Hypertension PAD (peripheral artery disease) ([facility]) 01/21/2022 Posterior tibial tendinitis of right leg 11/07/2022 Prostate cancer ([facility]) Vascular disease Past Surgical History: Procedure Laterality Date AMPUTATION TRANSMETATARSAL Left 10/08/2018 Procedure: LEFT MIDFOOT AMPUTATION; Surgeon: Flynn Mann DPM; Location: [facility] OR; Service: Podiatry ANKLE SURGERY Left BYPASS PERONEAL FEMORAL Right 09/07/2018 Procedure: BYPASS PERONEAL FEMORAL, RIGHT SAPHENOUS VEIN HARVEST, COMPLETION ANGIOGRAM; Surgeon: Mohsen Sarabia MD; Location: [facility] NEURO OR; Service: Cardiovascular CARDIAC CATHETERIZATION Left 09/05/2018 Procedure: Angio Lower Extremity; Surgeon: Ben Hahn MD; Location: [facility] INSPECTOR TESTER SORTER; Service: Cardiovascular CARDIAC SURGERY 2017 triple bypass [...] 2 (two) timesa day 1/ tab . CALMOSEPTINE 0.44-20.6 % [place]ONE [...] correspondence this note was partially generated by [employer] voice recognition software and is inherently subject [...] Resource Strain: Low Risk (06/21/2024) Received from [facility] Overall Financial Resource Strain (CARDIA) Difficulty of Paying Living Expenses: Not hard at all Food Insecurity: No Food Insecurity (06/21/2024) Received from [facility] Hunger Vital Sign Worried About Running Out of Food in the Last Year: Never true Ran Out of Food in the Last Year: Never true Transportation Needs: No Transportation Needs (06/21/2024) Received from [facility] PRAPARE - Transportation Lack of Transportation (Medical): No Lack of Transportation (Non-Medical): No Physical Activity: Insufficiently Active (06/21/2024) Received from [facility] Exercise Vital Sign Days of Exercise per Week: 7 days Minutes of Exercise per Session: 10 min Stress: No Stress Concern Present (06/21/2024) Received from [facility] [place] [employer] - Occupational Stress Questionnaire Feeling of Stress : Not at all Housing Stability: Low Risk (06/21/2024) Received from [facility] Housing Stability Vital Sign Unable [...] All Patient Name: Tristin Powell MR #: [id number] Subjective: office nurse received call from daughter who expressed concern about patient losing hisfoot- he is in dire pain and his toes on his right foot are turning purple. Dr. 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 Mast for a RLE angio +/- intervention. Orders placed. 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 ASA and clopidogrel initiated. Again, no heparin gtt required unless needed in the setting of hx of paroxysmal a.fib (historicallyon Xarelto; however, has been held over the past week 2/2 RLE angio at [facility] as performed on 03/12/25). Additionally, please [...] grossly insensate from toes to the ankle. [id number] Progress note* Quick Note - Iris Baxter RN - 03/14/2025 3:49 PM EDT This nurse was able to get RLE angiogram from March 12, 2025 from [facility] sent electronically. This was sent to Juana Escobar NP. She was able to open and view. Images sent to appropriate staff per Juana Escobar CNP. Called and notified the patient's daughter that she does not have to get the disc from [facility] to [facility]. [id number] Evaluation + Plan note* Assessment & Plan Note - Demetrice Escobar CNP - 03/14/2025 3:32 PM EDTAssociated Problem(s): Carotid stenosis, asymptomatic, bilateral Asymptomatic. No hx of CVA Non-invasive Studies: Carotid Duplex (04/2024): Left ICA with mild <50% stenosis of heterogenous plaque. Right ICA with moderate 50-69% stenosis of heterogenous plaque [id number] Evaluation + Plan note* Assessment & Plan Note - Demetrice Escobar CNP - 03/14/2025 3:30 PM EDTAssociated Problem(s): Coronary artery disease involving coronary bypass graft of [place] heart without angina pectoris S/p 3v CABG in 2017 Asymptomatic [id number] Evaluation + Plan note* Assessment & Plan [...] Recently underwent RLE angio on 03/12/25 via [facility] in [place] Non-invasive Studies: RLE arterial duplex (03/14/25): 50-99% [...] will continue to monitor over the weekend [id number] Evaluation + Plan note* Assessment & Plan Note - Demetrice Escobar CNP - 03/14/2025 3:18 PM EDTAssociated Problem(s): PAD (peripheral artery disease) (HCC) Longstanding, significant atherosclerotic disease with history of multiple endovascular and surgical interventions as outlined in the body of this note, please reference Plan: Continue ASA and statin therapies as prescribed. [id number] Consult note* Demetrice Escobar CNP - 03/14/2025 1:33 PM EDTAssociated Order(s): IP CONSULT TO CARDIOLOGY - PERIPHERAL VASC DISEASE Images from the original note were not included. Peripheral Vascular Cardiology Inpatient Consult Heart & Vascular [facility] 03/14/2025 Demetrice Escobar CNP [id number] [id number] Patient: Tristin Powell Date of : 1940 [...] Recently underwent RLE angio on 03/12/25 via [facility] in [place] Non-invasive Studies: RLE arterial duplex (03/14/25): 50-99% [...] RLE angiograms dated 03/12/25 and 10/12/23 from [facility]. Will review non-invasive studies as obtained earlier today as well as [facility] RLE angiograms with PV attending. Final [...] underwent formal LE angio on 03/12/25 via [facility]. Follows with Dr. Carvalho, cardiology, at [facility]. Last OV 11/2024. Son is [...] was drawn out. Relevant Vascular History: 06/2024: [facility] demonstrating stable coronary artery disease. Patent [...] SVG to PDA) via [facility] 10/2007: [facility] with MARIA ESTHER to LAD and LCx Objective Imaging: I independently reviewed the non-invasive vascular studies and agree with the interpretation(s) ECG 12 Lead Final Result by Interface, Lab Results In [place] (11/07/2022 1139) Echocardiogram complete w contrast [...] Arthritis Avascular necrosis of bone of hip ([facility]) Claudication COPD (chronic obstructive pulmonary disease) ([facility]) Coronary artery disease Herpes zoster Hyperlipidemia Hypertension PAD (peripheral artery disease) ([facility]) 01/21/2022 Posterior tibial tendinitis of right leg 11/07/2022 Prostate cancer ([facility]) Vascular disease Past Surgical History: Procedure Laterality Date AMPUTATION TRANSMETATARSAL Left 10/08/2018 Procedure: LEFT MIDFOOT AMPUTATION; Surgeon: Flynn Mann DPM; Location: [facility] OR; Service: Podiatry ANKLE SURGERY Left BYPASS PERONEAL FEMORAL Right 09/07/2018 Procedure: BYPASS PERONEAL FEMORAL, RIGHT SAPHENOUS VEIN HARVEST, COMPLETION ANGIOGRAM; Surgeon: Mohsen Sarabia MD; Location: [facility] OR; Service: Cardiovascular CARDIAC CATHETERIZATION Left 09/05/2018 Procedure: Angio Lower Extremity; Surgeon: Ben Hahn MD; Location: [facility] INSPECTOR TESTER SORTER; Service: Cardiovascular CARDIAC SURGERY 2017 triple bypass [...] to contact me, my mobile number is [phone]. Respectfully, Demetrice Martinez APRN [facility] [1] Social [...] fibrillation, and advanced PAD who presents with Marcus Hook 4 critical limb threatening ischemia of the [...] He underwent angiography 2 days ago in [place] where hewas found to have progressive disease [...] Arthritis Avascular necrosis of bone of hip ([facility]) Claudication COPD (chronic obstructive pulmonary disease) ([facility]) Coronary artery disease Herpes zoster Hyperlipidemia Hypertension PAD (peripheral artery disease) ([facility]) 01/21/2022 Posterior tibial tendinitis of right leg 11/07/2022 Prostate cancer ([facility]) Vascular disease Allergies: Doxycycline and Gabapentin Current [...] vascular surgery colleagues I personally performed a [id number] diagnostic evaluation on this patient on the [...] injection 0.1 mg 0.1 mg Intravenous PRN [place] denise MD And naloxone (NARCAN) injection 0.4 [...] mL vaccine urea (CARMOL) 40 % Crea [id number] History and physical note* Muna Otto MD - 03/14/2025 1:21 PM EDT [facility] History and Physical Note 03/14/25 Tristin Powell 1940 [id number] Assessment/Plan: Tristin Powell is a 85 y.o. [...] Peripheral Artery Disease: Followed by Dr. Beaver ([facility]) and Dr. Sarabia (Vascular Surgery) [...] additional for acute pain. CAD: Followed by [facility] Cardiology s/p 3 vessel coronary artery bypass grafting in 2017 and 7 stents. Chronic Diastolic Heart Failure: TTE 04/2024: LVEF 55% grade 1 diastolic dysfunction, moderate aortic regurgitation, moderate mitral regurgitation, mild tricuspid regurgitation. Appeared euvolemic on admission. Continued home losartan and lasix every other day. Paroxysmal Afib: [id number] of 5. Xarelto as above (no indication [...] lovenox. 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 Barraza (Vascular Surgery) - likely angiogram on Monday; no surgical intervention. ROS: 10 systems were reviewed and negative, except as noted above. Past Medical, Surgical, Social, Family History: Past Medical History: Diagnosis Date Arthritis Avascular necrosis of bone of hip ([facility]) Claudication COPD (chronic obstructive pulmonary disease) ([facility]) Coronary artery disease Herpes zoster Hyperlipidemia Hypertension PAD (peripheral artery disease) ([facility]) 01/21/2022 Posterior tibial tendinitis of right leg 11/07/2022 Prostate cancer ([facility]) Vascular disease Past Surgical History: Procedure Laterality Date AMPUTATION TRANSMETATARSAL Left 10/08/2018 Procedure: LEFT MIDFOOT AMPUTATION; Surgeon: Flynn Mann DPM; Location: [facility] OR; Service: Podiatry ANKLE SURGERY Left BYPASS PERONEAL FEMORAL Right 09/07/2018 Procedure: BYPASS PERONEAL FEMORAL, RIGHT SAPHENOUS VEIN HARVEST, COMPLETION ANGIOGRAM; Surgeon: Mohsen Sarabia MD; Location: [facility] OR; Service: Cardiovascular CARDIAC CATHETERIZATION Left 09/05/2018 Procedure: Angio Lower Extremity; Surgeon: Ben Hahn MD; Location: [facility] INSPECTOR TESTER SORTER; Service: Cardiovascular CARDIAC SURGERY 2017 triple bypass [...] to contact me via the [facility] Directory if any errorhas made critical portions of the note difficult to interpret. [1] Social History Socioeconomic History Marital status: Tobacco Use Smoking status: Never Smokeless tobacco: Never Vaping Use Vaping status: Never Used Substance and Sexual Activity Alcohol use: Not Currently Drug use: Never Sexual activity: Not Currently Social Drivers of Health Financial Resource Strain: Low Risk (06/21/2024) Received from [facility] Overall Financial Resource Strain (CARDIA) Difficulty of Paying Living Expenses: Not hard at all Food Insecurity: No Food Insecurity (06/21/2024) Received from [facility] Hunger Vital Sign Worried About Running Out of Food in the Last Year: Never true Ran Out of Food in the Last Year: Never true Transportation Needs: No Transportation Needs (06/21/2024) Received from [facility] PRAPARE - Transportation Lack of Transportation (Medical): No Lack of Transportation (Non-Medical): No Physical Activity: Insufficiently Active (06/21/2024) Received from [facility] Exercise Vital Sign Days of Exercise per Week: 7 days Minutes of Exercise per Session: 10 min Stress: No Stress Concern Present (06/21/2024) Received from [facility] [place] [facility] [employer]ational [facility] - Occupational Stress Questionnaire Feeling of Stress : Not at all Housing Stability: Low Risk (06/21/2024) Received from [facility] Housing Stability Vital Sign Unable to Pay for Housing in the Last Year: No Number of Times Moved in the Last Year: 0 Homeless in the Last Year: No [id number] NoteMedOne History and Physical Note 03/14/25 Tristin Powell 1940 [id number] Assessment/Plan: Tristin Powell is a 85 y.o. [...] Peripheral Artery Disease: Followed by Dr. Beaver ([facility]) and Dr. Sarabia (Vascular Surgery) [...] additional for acute pain. CAD: Followed by [facility] Cardiology s/p 3 vessel coronary artery bypass grafting in 2017 and 7 stents. Chronic Diastolic Heart Failure: TTE 04/2024: LVEF 55% grade 1 diastolic dysfunction, moderate aortic regurgitation, moderate mitral regurgitation, mild tricuspid regurgitation. Appeared euvolemic on admission. Continued home losartan and lasix every other day. Paroxysmal Afib: UAM1OE6-MITd of 5. Xarelto as above (no indication [...] lovenox. 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 Barraza (Vascular Surgery) - likely angiogram on Monday; no surgical intervention. ROS: 10 systems were reviewed and negative, (more content not included)...[facility]07-18-2025 Emergency department Note* Lorena Bethea - 03/14/2025 1:14 PM EDT Infrafone to write admission orders [id number] Physician Emergency department Note* Elaine Macdonald MD - 03/14/2025 12:26 PM EDT ED PROVIDER NOTE [facility] EMERGENCY DEPARTMENT Patient Name: Tristin Powell [...] User Index [EK] Elaine Macdonald MD [facility] Data: I saw and evaluated the [...] Arthritis Avascular necrosis of bone of hip ([facility]) Claudication COPD (chronic obstructive pulmonary disease) ([facility]) Coronary artery disease Herpes zoster Hyperlipidemia Hypertension PAD (peripheral artery disease) ([facility]) 01/21/2022 Posterior tibial tendinitis of right leg 11/07/2022 Prostate cancer ([facility]) Vascular disease Past Surgical History: Procedure Laterality Date AMPUTATION TRANSMETATARSAL Left 10/08/2018 Procedure: LEFT MIDFOOT AMPUTATION; Surgeon: Flynn Mann DPM; Location: [facility] OR; Service: Podiatry ANKLE SURGERY Left BYPASS PERONEAL FEMORAL Right 09/07/2018 Procedure: BYPASS PERONEAL FEMORAL, RIGHT SAPHENOUS VEIN HARVEST, COMPLETION ANGIOGRAM; Surgeon: Mohsen Sarabia MD; Location: [facility] NEURO OR; Service: Cardiovascular CARDIAC CATHETERIZATION Left 09/05/2018 Procedure: Angio Lower Extremity; Surgeon: Ben Hahn MD; Location: [facility] INSPECTOR TESTER SORTER; Service: Cardiovascular CARDIAC SURGERY 2017 triple bypass [...] correspondence this note was partially generated by [employer] voice recognition software and is inherently subject [...] Resource Strain: Low Risk (06/21/2024) Received from [facility] Overall Financial Resource Strain (CARDIA) Difficulty of Paying Living Expenses: Not hard at all Food Insecurity: No Food Insecurity (06/21/2024) Received from [facility] Hunger Vital Sign Worried About Running Out of Food in the Last Year: Never true Ran Out of Food in the Last Year: Never true Transportation Needs: No Transportation Needs (06/21/2024) Received from [facility] PRAPARE - Transportation Lack of Transportation (Medical): No Lack of Transportation (Non-Medical): No Physical Activity: Insufficiently Active (06/21/2024) Received from [facility] Exercise Vital Sign Days of Exercise per Week: 7 days Minutes of Exercise per Session: 10 min Stress: No Stress Concern Present (06/21/2024) Received from [facility] [place] [facility] [employer] - Occupational Stress Questionnaire Feeling of Stress : Not at all Housing Stability: Low Risk (06/21/2024) Received from [facility] Housing Stability Vital Sign Unable to Pay for Housing in the Last Year: No Number of Times Moved in the Last Year: 0 Homeless in the Last Year: No [2] Allergies Allergen Reactions Doxycycline Elevated blood pressure, GI intolerance/ nausea/vomiting Gabapentin GI Intolerance [id number] History of Present illness Narrative* Ludivina Garcia RN - 03/14/2025 12:05 PM EDT [facility] Medical Records Release form faxed to [phone]. Fax confirmation received. documented in this [id number] Consult note* Beena Barraza MD - 03/14/2025 [...] left TMA who presented to [facility] on 03/14/2025 with worsening RLE pain and discoloration. Arterial Duplex (03/14/25): 50-99% stenosis in the right mid SFA YAMIEL's (03/14/25): Right YAMILE is 0.50. Left YAMILE [...] PGY-2 [facility] Please contact surgical international tax manager division merchandise manager 5PM-6AM and weekends - #[phone] VTS Pager - #[phone] Admitted with these risk variables:None. Please see [...] (HCC) Claudication COPD (chronic obstructive pulmonary disease) ([facility]) Coronary artery disease Herpes zoster Hyperlipidemia Hypertension PAD (peripheral artery disease) ([facility]) 01/21/2022 Posterior tibial tendinitis of right leg 11/07/2022 Prostate cancer ([facility]) Vascular disease Past Surgical History: Procedure Laterality Date AMPUTATION TRANSMETATARSAL Left 10/08/2018 Procedure: LEFT MIDFOOT AMPUTATION; Surgeon: Flynn Mann DPM; Location: [facility] OR; Service: Podiatry ANKLE SURGERY Left BYPASS PERONEAL FEMORAL Right 09/07/2018 Procedure: BYPASS PERONEAL FEMORAL, RIGHT SAPHENOUS VEIN HARVEST, COMPLETION ANGIOGRAM; Surgeon: Mohsen Sarabia MD; Location: [facility] OR; Service: Cardiovascular CARDIAC CATHETERIZATION Left 09/05/2018 Procedure: Angio Lower Extremity; Surgeon: Ben Hahn MD; Location: [facility] INSPECTOR TESTER SORTER; Service: Cardiovascular CARDIAC SURGERY 2017 triple bypass [...] Resource Strain: Low Risk (06/21/2024) Received from [facility] Overall Financial Resource Strain (CARDIA) Difficulty of Paying Living Expenses: Not hard at all Food Insecurity: No Food Insecurity (06/21/2024) Received from [facility] Hunger Vital Sign Worried About Running Out of Food in the Last Year: Never true Ran Out of Food in the Last Year: Never true Transportation Needs: No Transportation Needs (06/21/2024) Received from [facility] PRAPARE - Transportation Lack of Transportation (Medical): No Lack of Transportation (Non-Medical): No Physical Activity: Insufficiently Active (06/21/2024) Received from [facility] Exercise Vital Sign Days of Exercise per Week: 7 days Minutes of Exercise per Session: 10 min Stress: No Stress Concern Present (06/21/2024) Received from [facility] [place] [employer] [facility] - Occupational Stress Questionnaire Feeling of Stress : Not at all Housing Stability: Low Risk (06/21/2024) Received from [facility] Housing Stability Vital Sign Unable to Pay [...] personally examined the patient and agree with resident/CRUDE TESTER/PA assessment and plan with the following additional findings. Pt known to me with CLTI of the RLE with rest pain and early ischemic skin changes. Plan for R fem tib bypass on Monday for limb salvage [id number] History of Present illness Narrative* Ludivina Garcia RN - 03/14/2025 11:12 AM EDT Spoke with Edwina from Medical Records from [facility] to obtain RLE Angiogram from 03/12/25. This Nurse was informed that for imaging if daughter is not POA that the patient would need to sign a release form and have the patient's sign it. She explained to this Nurse that the form will be faxed to [phone]. Edwina also informed this Nurse that they will fax the report for the RLE Angiogram once it is signed. This Nurse verbalized understanding and explained to Edwina that our office will reach out to the daughter to have her pecan picker the disc for the imaging of RLE Angiogram. Edwina verbalized understanding. All questions answered. documented in this [id number] Emergency department Triage note* Mikey Cadena RN [...] All Patient Name: Tristin Powell MR #: [id number] Subjective: office nurse received call from daughter who expressed concern about patient losing hisfoot- he is in dire pain and his toes on his right foot are turning purple. Dr. Sarabia requested USDuplex Arterial RLE and ABIs, and here for office visit today [id number] History of Present illness Narrative* Ken Johnson CNP - 03/14/2025 10:00 AM EDT Patient Name: Tristin Powell MR #: [id number] Subjective: office nurse received call from daughter [...] had a right angiogram attempted at the [facility] on Monday03/12/2025 but was told they could [...] this Will attempt to get angiogram from [facility] from 03/12/2025; may need to repeat angiogram [...] Ken Johnson CNP 03/14/2025 documented in this [id number] NotePatient Name: Tristin Powell MR #: [id number] Subjective: office nurse received call from daughter [...] had a right angiogram attempted at the [facility] on Monday03/12/2025 but was told they could [...] this Will attempt to get angiogram from [facility] from 03/12/2025; may need to repeat angiogram [...] 03/14/2025 AUTHENTICATED BY KEN JOHNSON, ON 03/14/2025 11:47:35[facility]07-17-2025 History of Present illness Narrative* Ludivina Garcia [...] [facility]. His ABIs will follow at 9 AM. Then his office visit with Ken Johnson CNP will be at 10 AM on the 5th floor of the [facility], [address]. Instructions provided for how to get to testing and office visit. Daughter verbalized understanding and expressed appreciation. All questions answered. documented in this [id number] Evaluation note* Diagnosis Onset Date Resolution Status Admit Date Peripheral vascular disease acuteJuly 2024 11:20am [facility] Work Phone: 1(259) 550-186807-15-2025 Evaluation note* Diagnosis Onset Date Resolution Status Admit Date Peripheral vascular disease acuteJuly 2024 11:20amChest painacuteSeptember 2024 4:42pmDyspnea acuteSeptember 2024 4:42pm [facility] Work Phone: 1(983) 656-660907-15-2025 Evaluation note* Diagnosis Onset Date Resolution Status Admit Date Peripheral vascular disease acuteJuly 2024 11:20amAcute respiratory failure with hypoxiaacuteSeptember 2024 11:19amChest painacuteSeptember 2024 11:19amCOPD exacerbation acuteSeptember 2024 11:19amDyspneaacuteSeptember 2024 11:19am HemoptysisacuteSeptember 2024 11:19amLung abscessacuteSeptember 2024 11:19amRhinovirus infectionacuteSeptember 2024 11:19am [facility] Work Phone: 1(785) 953-941706-19-2025 Telephone encounter Note* Telephone Encounter - Megan Douglass - 02/13/2025 3:28 PM EDT zolpidem (Ambien) 10 MG tablet Hydrocodone 5-352 [place] [facility] [id number] Miscellaneous Notes* Telephone Encounter - Megan Douglass - 02/13/2025 3:28 PM EDT zolpidem (Ambien) 10 MG tablet Hydrocodone 5-352 [place] documented in this encounterGolden Valley Memorial [id number] History of Present illness Narrative* Bhaskar Wilson [...] 2009 Avascular necrosis of bone of hip ([facility]) 09/04/2011 Right hip Right hip CAD (coronary artery disease) ([facility]) 2013 Carotid artery disease ([facility]) Cataract 2013 Cellulitis 01/19/2022 [facility] Cellulitis LLE Colon polyps 2011 Critical lower limb ischemia ([facility]) 09/04/2018 Last Assessment & Plan: Pt s/p LLE angiogram with Dr Hahn who feels that the pt has no further endovascular options. He has consulted Dr. Sarabia for a possible tibial bypass. Pt s/p LLE critical limb ischemia Marcus [place] class 4 rest pain with distal discoloration to histoes Gangrene of left foot ([facility]) 10/04/2018 Groin hematoma 2013 RT Femoral groin Hematoma H/O myocardial perfusion scan 07/09/2019 LVEF 56% Myocardial perfusion imaging shows a defect in Apical wall Herpes zoster 09/04/2011 History of being hospitalized 12/06/2020 Strep Pneumonia, Resp. Failure - [facility] History of being hospitalized [place] [facility] 07/15/2021-07/16/2021 History of coronary angiogram [...] incomplete bowel prep Diverticulosis Dr. Rowe at [facility] COLONOSCOPY W/ POLYPECTOMY 2011 CORONARY ARTERY BYPASS [...] HISTORY 04/25/[address] Hahn IN MEDICATION MANAGEMENT 11/2020 Multi resistant Strep Pneumonia, [...] No follow-ups on file. [facility] Telephone encounter Note* Telephone Encounter - Megan Douglass - 01/02/2025 10:43 AM EDT oxyCODONE-acetaminophen (Percocet) 5-325 MG tablet [ [place] in [place] [facility] HospitalVzxomjekse19-21-4592 Miscellaneous Notes* Telephone Encounter - Megan Douglass - 01/02/2025 10:43 AM EDT oxyCODONE-acetaminophen (Percocet) 5-325 MG tablet [ [place] [facility] NoteUT Cardiology - [facility] Subjective Tristin Powell is a 84 [...] artery disease involving coronary bypass graft of umkumi[place] heart without angina pectoris Coronary artery disease involving [place] coronary artery of [place] heart without angina pectoris Coronary atherosclerosis Critical lower limb ischemia ([facility]/H[facility]) Disorder of lipid metabolism Hypertensive disorder Herpes [...] nodule S/P transmetatarsal amputation of foot, left ([facility]) Snoring Thoracic aortic aneurysm without rupture Posterior [...] Paroxysmal atrial fibrillation (CMS/HCC) Phantom limb pain ([facility]) Polymyalgia rheumatica Primary osteoarthritis of right hip Routine general medical examination at health care facility Seasonal allergic rhinitis Sinusitis Stage 3a chronic kidney disease ([facility]) Acute cystitis without hematuria Benign essential hypertension Other thrombophilia NSTEMI (non-ST elevated myocardial infarction) ([facility]) Hx of CABG Coronary artery disease 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) Other complications of amputation stump (CMS/HCC) Pulmonary hypertension, unspecified (CMS/HCC) Secondary hypercoagulable state Bronchiectasis, uncomplicated (CMS/HCC) Chronic diastolic (congestive) heart failure ([facility]) Family History Problem Relation Name Age of [...] instent restenosis. He then underwent CABG at [facility] beds [facility] in 2017 (CHAVEZ to diagonal, [...] a yellow jacket and he went to [facility] for evaluation. He had mildly elevated [...] he feels good. Cuca (more content not included)...[facility] 11-26-2024 Telephone encounter Note* Telephone Encounter - LEONARDA Villavicencio - 11/26/2024 1:04 PM EDT OARRS reviewed, Rx sent into patient's pharmacy. Albuterol also sent. [facility] HospitalYzjowgsotk98-47-8543 Miscellaneous Notes* Telephone Encounter - LEONARDA Villavicencio - 11/26/2024 1:04 PM EDT OARRS reviewed, Rx sent into patient's pharmacy. Albuterol also sent. * Telephone Encounter - Megan Douglass - 11/26/2024 10:31 AM EDT oxyCODONE-acetaminophen (Percocet) 5-325 MG tablet [place] documented in this encounterGolden Valley Memorial HospitalZhhgahxjwc77-61-3447 Telephone encounter Note* Telephone Encounter - Megan Douglass - 11/26/2024 10:31 AM EDT oxyCODONE-acetaminophen (Percocet) 5-325 MG tablet [place] in [place] [facility] [id number] History of Present illness Narrative* Elaine Saab [...] prescription needs to go to [facility] in [place], [place]. States all other prescriptions go to [facility] pharmacy. Medications reconciled with pt. Pt also needs refill on albuterol HFA 90 mcg/act inhaler. This is to be sent to [facility]. * LEONARDA Villavicencio - 11/25/2024 9:54 AM EDT Will send meds in for pt. documented in this encounterGolden Valley Memorial HospitalPexhxnlomp82-06-7101 Telephone encounter Note* Telephone Encounter - Megan Douglass - 10/21/2024 9:32 AM EST Pt scheduled [facility] HospitalYzgqkzoppg51-62-6852 Miscellaneous Notes* Telephone Encounter - Megan Douglass - 10/21/2024 9:32 AM EST Pt scheduled * Telephone Encounter - LEONARDA Villavicencio - 10/18/2024 12:38 PM EST Please help pt get set up with Dr. Lovelace for medication follow up appointment in October. OARRS reviewed, Rx sent into patient's pharmacy. documented in this encounterGolden Valley Memorial HospitalQfvnvvdxsh25-61-8349 Telephone encounter Note* Telephone Encounter - LEONARDA Villavicencio - 10/18/2024 12:38 PM EST Please help pt get set up with Dr. Lovelace for medication follow up appointment in October. OARRS reviewed, Rx sent into patient's pharmacy. [facility] HospitalOiekczzhur43-00-4589 History of Present illness Narrative* Ludivina Garcia RN - 09/23/2024 1:09 PM EST Spoke with Nurse from Dr. Beaver's office with [facility] and requested reports for ABIs and US Duplex Bypass Graft LLE be faxed to [phone]. Staff verbalized understanding. All questions answered. documented in this [id number] Telephone encounter Note* Telephone Encounter - LEONARDA Villavicencio - 09/13/2024 12:11 PM EST OARRS reviewed, Rx sent into patient's pharmacy. [facility] HospitalCellznwhrv40-44-2759 Miscellaneous Notes* Telephone Encounter - LEONARDA Villavicencio - 09/13/2024 12:11 PM EST OARRS reviewed, Rx sent into patient's pharmacy. * Telephone Encounter - Cindi Oscar - 09/12/2024 1:32 PM EST oxyCODONE-acetaminophen (Percocet) 5-325 MG tablet to sebastien dougherty documented in this encounterNOSt. Joseph Medical CenterCywsclvsos49-50-5059 Telephone encounter Note* Telephone Encounter - Cindi Oscar - 09/12/2024 1:32 PM EST oxyCODONE-acetaminophen (Percocet) 5-325 MG tablet to sebastien dougherty [facility] [id number] History of Present illness Narrative* Ludivina Garcia, RN - 08/20/2024 12:50 PM EST Lvm for staff at [facility] with Dr. Beaver's office to clarify if patient already completed his ABIs and US Duplex Bypass Graft LLE. Left direct number for call back. documented in this [id number] History of Present illness Narrative* Flash Lovelace [...] includes PVD. There is no history of CAD/LA orCVA. There is no history of a [...] 2009 Avascular necrosis of bone of hip ([facility]) 09/04/2011 Right hip Right hip CAD (coronary artery disease) ([facility]) 2013 Carotid artery disease ([facility]) Cataract 2014 Cellulitis 01/19/2022 [facility] Cellulitis LLE Colon polyps 2011 Critical lower limb ischemia ([facility]) 09/04/2018 Last Assessment & Plan: Pt s/p LLE angiogram with Dr Hahn who feels that the pt has no further endovascular options. He has consulted Dr. Sarabia for a possible tibial bypass. Pt s/p LLE critical limb ischemia Deann class 4 rest pain with distal discoloration to histoes Gangrene of left foot ([facility]) 10/04/2018 Groin hematoma 2014 RT Femoral groin Hematoma H/O myocardial perfusion scan 07/09/2019 LVEF 56% Myocardial perfusion imaging shows a defect in Apical wall Herpes zoster 09/04/2011 History of being hospitalized 12/06/2020 Strep Pneumonia, Resp. Failure - [facility] History of being hospitalized [place] - [facility] 07/15/2021-07/16/2021 History of coronary angiogram [...] incomplete bowel prep Diverticulosis Dr. Rowe at [facility] COLONOSCOPY W/ POLYPECTOMY 2011 CORONARY ARTERY BYPASS [...] HISTORY 04/25/[address] Hahn IN MEDICATION MANAGEMENT 11/2020 Multi resistant Strep Pneumonia, [...] Relevant Orders Influenza, high-dose seasonal, quadrivalent, PF (QXJ072) (Fluzone High Dose Quad [place] 0.7mL dose) (Completed) No follow-ups on file. documented in this encounterGolden Valley Memorial HospitalDhwqocbdwy06-18-6533 Telephone encounter Note* Telephone Encounter - Megan Douglass - 08/06/2024 2:54 PM EST oxyCODONE-acetaminophen (Percocet) 5-325 MG tablet zolpidem (Ambien) 10 MG tablet Dio crowe [facility] HospitalRyabngnftg50-48-1605 Miscellaneous Notes* Telephone Encounter - Megan Douglass - 08/06/2024 2:54 PM EST oxyCODONE-acetaminophen (Percocet) 5-325 MG tablet zolpidem (Ambien) 10 MG tablet Blasogeradha crowe documented in this encounterGolden Valley Memorial HospitalVaknoqakxp56-76-8780 NoteUT Cardiology - [facility] Subjective Tristin Powell is a [...] artery disease involving coronary bypass graft of umkumiut heart without angina pectoris Coronary artery disease involving [place]kumiut coronary artery of [place] heart without angina pectoris Coronary atherosclerosis Critical [...] instent restenosis. He then underwent CABG at [facility] beds [facility] the [facility] in 2017 (CHAVEZ to diagonal, [...] a yellow jacket and he went to [facility] for evaluation. He had mildly elevated [...] joint pain, myalgias and (more content not included)...[facility]11-13-2024 Note Patient: Tristin Powell Procedure Information Date/Time: 07/10/24929 Procedure: Coronary angiography - PC APPROVED Location: [facility] INSPECTOR TESTER SORTER 3 / [facility] (Cath) Providers: Eliezer Carvalho MD Clinical information reviewed: Allergies Meds Physical Exam Airway Mallampati: III TM distance: >3 FB Neck ROM: full Cardiovascular Rhythm: regular Rate: normal Dental Pulmonary Abdominal Anesthesia Plan ASA 3 (Conscious sedation) Anesthetic plan and risks discussed with patient. Use of blood products discussed with patient who. Plan discussed with attending. Additional Equipment RequestsUnKettering Health [place]11-08-2024 Telephone encounter Note* Telephone Encounter - LEONARDA Villavicencio - 07/05/2024 9:35 AM EST OARRS reviewed, Rx sent into patient's pharmacy. [facility] [id number] Miscellaneous Notes* Telephone Encounter - LEONARDA Villavicencio - 07/05/2024 9:35 AM EST OARRS reviewed, Rx sent into patient's pharmacy. * Telephone Encounter - Cindi Oscar - 07/05/2024 9:18 AM EST oxyCODONE-acetaminophen (Percocet) 5-325 MG tablet to Sebastien Dougherty documented in this encounterNOSt. Joseph Medical [id number] Telephone encounter Note* Telephone Encounter - Cindi Oscar - 07/05/2024 9:18 AM EST oxyCODONE-acetaminophen (Percocet) 5-325 MG tablet to [place] [facility] [id number] Telephone encounter Note* Telephone Encounter - Megan Douglass - 06/17/2024 10:04 AM EDT Patient called requesting a zpack due to a cold. He asked [facility] be [facility] [place]. [facility] [id number] Miscellaneous Notes* Telephone Encounter - Megan Douglass - 06/17/2024 10:04 AM EDT Patient called requesting a zpack due to a cold. He asked something to be [facility] into [facility] [place]. documented in this encounterGolden Valley Memorial [id number] NoteUT Cardiology - [facility] Subjective Tristin Powell is a [...] artery disease involving coronary bypass graft of umkumiut heart without angina pectoris Coronary artery disease involving umkumiut coronary artery of umkumiut heart without angina pectoris Coronary atherosclerosis Critical [...] without hematuria Benign essential hypertension Other thrombophilia ([facility]/HCC) Family History Problem Relation Name Age of [...] instent restenosis. He then underwent CABG at [facility] beds at [facility] in 2017 (CHAVEZ to diagonal, [...] stress ECHO that could be done at [facility]. He has not had this done yet as he notes his vascular surgery is on hold at the moment and they are monitoring things. 05/28/2024 Since last seen, pt presented to [facility] with c/o chest pain. He was stung by a yellow jacket. 4 hours later he developed sharp stabbing chest pains that lasted seconds. This happened again 2 hours later. He went to [facility] for further evaluation. He has had no further episodes of chest pain. Review of Systems Cardiovascular (more content not included)...[facility] 05-28-2024 NotePt is here for a follow up after being in [facility]. Pt has HLD, HNT, and CAD. Pt denies chest pain, sob, dizziness. Review of Systems Cardiovascular: Positive for claudication and leg swelling. Respiratory: Positive for wheezing. Hematologic/Lymphatic: Bruises/bleeds easily. Musculoskeletal: Positive for arthritis, back pain, joint pain, myalgias and neck pain. All other systems reviewed and are negative.[facility] 05-21-2024 History of Present illness Narrative* LEONARDA Villavicencio - 05/21/2024 1:00 PM EDT HPI Med Refill Additional comments: Oxycodone Last edited by Wendy Tubbs LPN on 05/21/2024 1:07 PM. Subjective Patient ID: Tristni Powell is a 84 y.o. male who presents for hospital follow up. Flowsheet Row Patient Outreach from 05/16/2024 in [facility] with Mary Monday, [employer] Hospital Information Discharged To: Home Setting Discharge Hospital [facility] Diagnosis Chest pain, HTN, CAD, paroximal [...] went to a lung specialist down in [place] and after the repeat test was told [...] morning. [DISCONTINUED] ergocalciferol (Vitamin D-2) 1.25 MG (32825 UT) capsule Take 50,000 Units by mouth [...] 2008 Avascular necrosis of bone of hip ([facility]) 09/04/2011 Right hip Right hip CAD (coronary artery disease) ([facility]) 2013 Carotid artery disease ([facility]) Cataract 2014 Cellulitis 01/19/2022 [facility] Cellulitis LLE Colon polyps 2011 Critical lower limb ischemia ([facility]) 09/04/2018 Last Assessment & Plan: Pt s/p LLE angiogram with Dr Hahn who feels that the pt has no further endovascular options. He has consulted Dr. Sarabia for a possible tibial bypass. Pt s/p LLE critical limb ischemia [place] class 4 rest pain with distal discoloration to histoes Gangrene of left foot ([facility]) 10/04/2018 Groin hematoma 2013 RT Femoral groin Hematoma H/O myocardial perfusion scan 07/09/2019 LVEF 56% Myocardial perfusion imaging shows a defect in Apical wall Herpes zoster 09/04/2011 History of being hospitalized 12/06/2020 Strep Pneumonia, Resp. Failure - [facility] History of being hospitalized [place] - [facility] 07/15/2021-07/16/2021 History of coronary angiogram [...] incomplete bowel prep Diverticulosis Dr. [place]e at [facility] COLONOSCOPY W/ POLYPECTOMY 2011 CORONARY ARTERY BYPASS [...] HISTORY 04/25/20[address] LE catheterization Dr. Hahn IN [facility]NA[facility] 11/2020 Multi resistant Strep Pneumonia, [...] patient. 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[facility]) The patient is seeing a director of medical education for this condition, treatment is deferred to [...] for Appointment As Scheduled. documented in this encounterGolden Valley Memorial [id number] History of Present illness Narrative* LEONARDA Villavicencio [...] % ointment ergocalciferol (Vitamin D-2) 1.25 MG (87164 UT) capsule Take 50,000 Units by mouth [...] fracture, left 2009 CAD (coronary artery disease) (CMS/[facility]) 2013 Carotid artery disease ([facility]) Cataract 2014 Cellulitis 01/19/2022 [facility] Cellulitis LLE Colon polyps 2012 Groin hematoma 2013 RT Femoral groin Hematoma H/O myocardial perfusion scan 07/09/2019 LVEF 56% Myocardial perfusion imaging shows a defect in Apical wall History of being hospitalized 12/06/2020 Strep Pneumonia, Resp. Failure - [facility] History of being hospitalized [place] - [facility] 07/15/2021-07/16/2021 History of coronary angiogram [...] incomplete bowel prep Diverticulosis Dr. Rowe at [facility] COLONOSCOPY W/ POLYPECTOMY 2011 CORONARY ARTERY BYPASS [...] HISTORY 04/25/20[address] LE [address] Dr. Hahn IN [facility]ICATION [facility]NA[facility] 11/2020 Multi resistant Strep Pneumonia, [...] Do you have a medical power of personal injury attorney?: Yes Objective : BP 132/82 Pulse [...] on exertion The patient is seeing a director of medical education for this condition, treatment is deferred to that specialist. Correspondence from that specialist and any available testing were reviewed during today's visit. 12. Orthopnea The patient is seeing a director of medical education for this condition, treatment is deferred to [...] aneurysm (AAA) without rupture, unspecified part (CMS/HCC) The patient is seeing a director of medical education for this condition, treatment is deferred to that specialist. Correspondence from that specialist and any available testing were reviewed during today's visit. 16. Aortic valve insufficiency, etiology of cardiac valve disease unspecified The patient is seeing a director of medical education for this condition, treatment is deferred to that specialist. Correspondence from that specialist and any available testing were reviewed during today's visit. 17. Atherosclerosis of umkumiut coronary artery of umkumiut heart without angina pectoris ([facility]/HCC) The patient is seeing a director of medical education for this condition, treatment is deferred to that specialist. Correspondence from that specialist and any available testing were reviewed during today's visit. 18. Benign essential hypertension ([facility]) Patient's blood pressure is currently well controlled. Continue with current medications and I willcontinue to monitor. 19. Stenosis of right carotid artery The patient is seeing a director of medical education for this condition, treatment is deferred to that specialist. Correspondence from that specialist and any available testing were reviewed during today's visit. 20. Chronic heart failure with preserved ejection fraction ([facility]) The patient is seeing a director of medical education for this condition, treatment is deferred to that specialist. Correspondence from that specialist and any available testing were reviewed during today's visit. 21. Chronic ischemic heart disease ([facility]) The patient is seeing a director of medical education for this condition, treatment is deferred to that specialist. Correspondence from that specialist and any available testing were reviewed during today's visit. 22. Mitral valve insufficiency, unspecified etiology The patient is seeing a director of medical education for this condition, treatment is deferred to that specialist. Correspondence from that specialist and any available testing were reviewed during today's visit. 23. Paroxysmal atrial fibrillation ([facility]) The patient is seeing a director of medical education for this condition, treatment is deferred to that specialist. Correspondence from that specialist and any available testing were reviewed during today's visit. 24. Preinfarction syndrome ([facility]) The patient is seeing a director of medical education for this condition, treatment is deferred to that specialist. Correspondence from that specialist and any available testing were reviewed during today's visit. 25. PVD (peripheral vascular disease) with claudication ([facility]) The patient is seeing a director of medical education for this condition, treatment is deferred to that specialist. Correspondence from that specialist and any available testing were reviewed during today's visit. 26. Thoracic aortic aneurysm without rupture, unspecified part ([facility]) The patient is seeing a director of medical education for this condition, treatment is deferred to [...] 29. Chronic kidney disease due to hypertension ([facility]/HCC) This is a chronic medical condition that is stable since last assessment. No changes in treatment are suggested at this time. 30. Impotence of organic origin This is a chronic medical condition that is stable since last assessment. No changes in treatment are suggested at this time. 31. Malignant neoplasm of prostate (CMS/HCC) The patient is seeing a director of medical education for this condition, treatment is deferred to [...] time. 35. Claudication of right lower extremity ([facility]/HCC) The patient is seeing a director of medical education for this condition, treatment is deferred to [...] suggested at this time. 41. Other thrombophilia ([facility]/HCC) This is a chronic medical condition that is stable since last assessment. No changes in treatment are suggested at this time. 42. Abnormal radiographic examination The patient is seeing a director of medical education for this condition, treatment is deferred to that specialist. Correspondence from that specialist and any available testing were reviewed during today's visit. 43. Disorder of lipid metabolism (CMS/HCC) The patient is seeing a director of medical education for this condition, treatment is deferred to that specialist. Correspondence from that specialist and any available testing were reviewed during today's visit. 44. Left sciatic nerve pain This is a chronic medical condition that is stable since last assessment. No changes in treatment are suggested at this time. 45. Mixed hyperlipidemia (CMS/HCC) The patient is seeing a director of medical education for this condition, treatment is deferred to [...] 100 g; Refill: 3 48. Atherosclerosis of umkumiut arteries of extremities with rest pain, unspecified extremity (CMS/HCC) The patient is seeing a director of medical education for this condition, treatment is deferred to that specialist. Correspondence from that specialist and any available testing were reviewed during today's visit. 49. Pulmonary hypertension, unspecified (CMS/HCC) The patient is seeing a director of medical education for this condition, treatment is deferred to that specialist. Correspondence from that specialist and any available testing were reviewed during today's visit. Follow up in about 3 months (around 07/27/2024) for Medication Follow Up. Electronically signed by LEONARDA Villavicencio on April 26, 2024 documented in this encounterGolden Valley Memorial [id number] NotePt is here for a six month follow up. Pt has hyperlipidemia, hypertension, PAD. Pt denies sob, chest pain, palpitations Review of Systems Cardiovascular: Positive for claudication. Respiratory: Positive for wheezing. Hematologic/Lymphatic: Bruises/bleeds easily. Musculoskeletal: Positive for arthritis, back pain, joint pain, myalgias and neck pain. All other systems reviewed and are negative.[facility] 04-24-2024 NoteUT Cardiology - [facility] Subjective Tristin Powell is a 84 y.o. year old male patient being seen for 6 mo follow up CAD, PAD, AAA, HTN, and HLD. Had lipid panel Sep, 2023. He is now seeing vascular surgery in [place], Dr. Beaver. Patient Active Problem List Diagnosis Abdominal pain Chest pain Aortic valve regurgitation Mitral valve regurgitation Avascular necrosis of bone of hip (CMS/HCC) Community acquired pneumonia of left lower lobe of lung Contusion Hematoma of arm, left, initial encounter Coronary artery disease involving coronary bypass graft of umkumiut heart without angina pectoris Coronary artery disease involving umkumiut coronary artery of umkumiut heart without angina pectoris Coronary atherosclerosis Critical [...] instent restenosis. He then underwent CABG at [facility] beds at the [facility] in 2017 (CHAVEZ to diagonal, [...] stress ECHO that could be done at [facility]. He has not had this [...] (BP Location: Right arm (more content not included)...[facility]04-[facility]24 Hospital Discharge instructions Patient Education 12/26/2023 [...] under a microscope. This is called the [place] score and the total score can range [...] stress of having cancer. General instructions Take nefm-txn-juyefzx and prescription medicines only as told by your health care provider. If you have to go to the hospital, notify your cancer specialist (oncologist). Keep all follow-up visits. This is important. Where to find more information [place] [employer]: www.cancer.org [place] [employer] Oncology: www.cancer.net National Cancer [place]: www.cancer.gov Contact a health care provider if: [...] provider. Document Revised: 11/10/2021 Document Reviewed: 11/10/2021 [email or web address] Patient Education 2022 [employer]. Follow Up Care 12/20/2022 14:56:06 With:JAY CARRANZA, BRENNA Bazan, URL Address: [address] [place] [address] Business (1) When: only if needed [facility] 02-06-2024 Evaluation note* Encounter Date Diagnosis [...] understands and is agreement with that plan [facility] Other 12-14-2023 History of Present illness Narrative* Dahiana Coelho - 08/10/2023 11:40 AM EST Ortho Nurse - Established Patient Intake Room#: 4 Date: 08/10/2023 10:53 AM Patient: Tristin Powell MR#: [id number] : 1940 Age: 83 y.o. 2yr R [...] 10:53 AM Patient: Tristin Powell Sr. MR#: [id number] : 1940 Age: 83 y.o. 2yr R [...] has No Known Allergies. documented in this [facility]12[facility] History of Present illness Narrative* Mohsen [...] year with repeat testing. documented in this [id number] History of Present illness Narrative* Katie Anna [...] Duplex and had previous study done at [facility] in Apr [address] Maxim Beaver. This Nurse will obtain records and submit to Dr. Sarabia for review. documented in this [id number] Evaluation note* Encounter Date Diagnosis Assessment Notes [...] with speech that he should seek attention. [facility] Other 09-26-2023 Evaluation note* Encounter Date Diagnosis [...] to go over the results with him. [facility] Other 09-26-2023 Evaluation note* Encounter Date Diagnosis Assessment Notes Treatment Notes Treatment Clinical Notes Apr, Peripheral vascular disease, uns pecified (ICD-10 - I73.9) Apr,Other specified postprocedural states (ICD-10 - Z98.890) Apr,Left carotid bruit (ICD-10 - R09.89) [facility] Other 04-25-2023 Hospital Discharge instructions Patient Education [...] Follow these instructions at home: Medicines Take njdr-bzm-sentcmh and prescription medicines only as told by [...] provider. Document Revised: 11/10/2021 Document Reviewed: 11/10/2021 [email or web address] Patient Education 2022 [employer]. Follow Up Care 11/21/2022 15:38:53 With:BRENNA MOSQUERA PA-C, CHON Address: When:1 year [facility] 03-20-2023 Evaluation note* Encounter Date Diagnosis [...] meantime with any worsening symptoms or concerns. [facility] Other 03-14-2023 History of Present illness Narrative* Camila Bland, STAFF APPRAISER - 11/08/2022 12:08 PM EDT Physical Therapy [...] to Sit: Supervision, Head of bed elevated Supervisor Sewing Room: bed positioning mechanics, bedrails Skilled Intervention Provided: verbal cues, patient education, monitoring patient response with activity For: logroll technique, proper body mechanics, self-monitoring during activity Resulting in: improved functional independence Transfers Sit to Stand: Stand by assist Stand Pivot Transfers: Stand by assist Supervisor Sewing Room: BUE Skilled Intervention Provided: verbal cues, neuromuscular [...] recently Prior Level of Function Level of [place] - Transfers/Ambulation/Mobility: Independent with household ambulation, Independent with community ambulation Level of [place] - ADLs: Independent Level of [place] - Homemaking: Independent Driving: Patient drives For [...] Dawn MD - 11/08/2022 6:57 AM EDT [facility] Inpatient Progress Note 11/08/2022 Tristin Powell 1940 [id number] Assessment/Plan: Tristin Powell is an 82 year old male with a history of Prostate Cancer, CAD, PAD (left foot amputation 2018), Hypertension, HFpEF who presented to [facility] 11/03/2022 with persistent pneumonia despite #2 rounds of PO antibiotics, as well as diffuse bilateral LE edema and swelling. Troponin 117, BNP 429, CRP 36. CT-PE: no pulmonary embolism, dense LLL consolidation. Abnormal CT Chest: initially diagnosed ~10/19/22 and did not improve with #2 courses of PO antibiotics (initially on Azithromycin/Cefuroxime and then Levaquin since 3/5/23) Admit CT-PE: dense consolidation. MRSA swab, urine [...] to rubbing effect. Recommended to go to [facility] for adjustment to prevent valgus deformity [...] labs, diagnostics, vitals including pulse ox, and recruitment consultant/other provider recommendations. VSS. Troponin with negative [...] (PF) 5 mL Intravenous Q8H [facility] Labs, Imaging and Studies reviewed: Results from [...] Standing Balance - Static: Stand by assist Supervisor Sewing Room - Standing Static: (none) Standing Balance - Dynamic: Stand by assist, Contact guard assist Supervisor Sewing Room - Standing Dynamic: (none) Skilled Intervention Provided: verbal cues, patient education For: self-monitoring during activity, safe use of AD and/or equipment Resulting in: improved functional independence Bed Mobility Supine to Sit: (N/A Pt sitting edge of bed upon arrival) Sit to Supine: (N/A Pt sitting edge of bed at end of session) Transfers Sit to Stand: Stand by assist Supervisor Sewing Room: (none) Skilled Intervention Provided: verbal cues For: [...] recently Prior Level of Function Level of [place] - Transfers/Ambulation/Mobility: Independent with household ambulation, Independent with community ambulation Level of [place] - ADLs: Independent Level of [place] - Homemaking: Independent Driving: Patient drives For [...] of Physical Therapy Plan of Care. * Jsas Barboza MD - 11/07/2022 7:39 AM EDT [facility] Inpatient Progress Note 11/07/2022 Tristin Powell 1940 [id number] Assessment/Plan: Tristin Powell is an 82 year old male with a history of Prostate Cancer, CAD, PAD (left foot amputation 2018), Hypertension, HFpEF who presented to [facility] 11/03/2022 with persistent pneumonia despite #2 [...] to rubbing effect. Recommended to go to [facility] for adjustment to prevent valgus deformity in the heel from getting worse; arch support on the right. Follow up with Dr. Dashawn Orosco, DPM (closer to home). CAD: history of [...] 6' 1 Wt 113.4 kg (250 lb) JfM678% BMI 32.98 kg/m General: NAD Eyes: EOMI [...] (PF) 5 mL Intravenous Q8H [facility] Labs, Imaging and Studies reviewed: Results from [...] Barboza MD - 11/06/2022 10:11 AM EDT [facility] Inpatient Progress Note 11/06/2022 Tristin Powell 1940 [id number] Assessment/Plan: Tristin Powell is an 82 year old male with a history of Prostate Cancer, CAD, PAD (left foot amputation 2018), Hypertension, HFpEF who presented to [facility] 11/03/2022 with persistent pneumonia despite #2 [...] Podiatry 11/05/22. CAD: history of CABG x3 (2016). Left Buttock Pressure Injury: Stage unknown, present [...] Standing Balance - Static: Contact guard assist Supervisor Sewing Room - Standing Static: other (comment) (none) Standing Balance - Dynamic: Contact guard assist Supervisor Sewing Room - Standing Dynamic: (none) Loss of Balance- [...] assist Stand Pivot Transfers: Contact guard assist Supervisor Sewing Room: other (comment) (none) Skilled Intervention Provided: verbal [...] recently Prior Level of Function Level of [place] - Transfers/Ambulation/Mobility: Independent with household ambulation, Independent with community ambulation Level of [place] - ADLs: Independent Level of [place] - Homemaking: Independent Driving: Patient drives For [...] Barboza MD - 11/05/2022 9:53 AM EST [facility] Inpatient Progress Note 11/05/2022 Tristin Powell 1940 [id number] Assessment/Plan: Tristin Powell is an 82 year old male with a history of Prostate Cancer, CAD, PAD (left foot amputation 2018), Hypertension, HFpEF who presented to [facility] 11/03/2022 with persistent pneumonia despite #2 [...] Podiatry 11/05/22. CAD: history of CABG x3 (2016). Left Buttock Pressure Injury: Stage unknown, present [...] left foot area. Nasal irritation. ConsultedPodiatry. Prescribed [place] Saline nasal spray. Reviewed chart. Physical Exam: [...] (PF) 5 mL Intravenous Q8H [facility] Labs, Imaging and Studies reviewed: Results from [...] None Wound Bed Characteristics Scab Edna-wound Assessment Painful;[place] Treatments Skin barrier cream/paste Cleansed Soap and [...] recently Prior Level of Function Level of [place] - Transfers/Ambulation/Mobility: Independent with household ambulation, Independent with community ambulation Level of [place] - ADLs: Independent Level of [place] - Homemaking: Independent Driving: Patient drives Past Medical History: Diagnosis Date Arthritis Avascular necrosis of bone of hip (HCC) Claudication (HCC) Coronary artery disease Herpes zoster Hyperlipidemia Hypertension PAD (peripheral artery disease) (HCC) 01/21/2022 Prostate cancer (HCC) Vascular disease Past Surgical History: Procedure Laterality Date AMPUTATION TRANSMETATARSAL Left 10/08/2018 Procedure: LEFT MIDFOOT AMPUTATION; Surgeon: Flynn Mann DPM; Location: [facility] OR; Service: Podiatry ANKLE SURGERY Left BYPASS PERONEAL FEMORAL Right 09/07/2018 Procedure: BYPASS PERONEAL FEMORAL, RIGHT SAPHENOUS VEIN HARVEST, COMPLETION ANGIOGRAM; Surgeon: Mohsen Sarabia MD; Location: [facility] NEURO OR; Service: Cardiovascular CARDIAC CATHETERIZATION Left 09/05/2018 Procedure: Angio Lower Extremity; Surgeon: Ben Hahn MD; Location: [facility] INSPECTOR TESTER SORTER; Service: Cardiovascular CARDIAC SURGERY 2017 triple bypass [...] Barboza MD - 11/04/2022 10:58 AM EST [facility] Inpatient Progress Note 11/04/2022 Tristin oPwell 1940 [id number] Assessment/Plan: Tristin Powell is an 82 year old male with a history of Prostate Cancer, CAD, PAD (left foot amputation 2018), Hypertension, HFpEF who presented to [facility] 11/03/2022 with persistent pneumonia despite #2 [...] PHOSPHORUS mg/dL 3.9* -- * El Owen RP,PharmD - 11/03/2022 10:20 PM EST PHARMACOTHERAPY NOTE: [...] 1 Encounters: 11/03/22 113.4 kg (250 lb) Imperial body weight: 79.9 kg (176 lb 2.4 [...] Component Value Units Date/Time Sputum Aerobic Culture [[id number]] Order Status: Sent Specimen: Sputum, Expectorated S. pneumoniae Urine Antigen [[id number]] Order Status: Sent Specimen: Urine, Random Legionella Antigen, Urine [[id number]] Order Status: Sent Specimen: Urine, Random MRSA DNA Amplified Probe [[id number]] Order Status: Sent Specimen: Swab from Nasal Blood Culture Aerobic/Anaerobic [[id number]] (Normal) Collected: 11/03/22 135 Order Status: Completed Specimen: Blood, Peripheral Updated: 11/03/22 1559 Culture In Progress; No Growth to Date Blood Culture Aerobic/Anaerobic [[id number]] (Normal) Collected: 11/03/22 135 Order Status: Completed Specimen: Blood, Peripheral Updated: 11/03/22 1559 Culture In Progress; No Growth to Date Pharmacist: El Owen RPh,PharmD Contact Number: documented in this [id number] Hospital Discharge instructions * Discharge Instructions* Vickey [...] Care Everywhere. * Heart Failure: Avoiding Triggers ([facility]) * Heart Failure: Limiting Sodium ([facility]) * Heart Failure: Restricting Fluids: General Info ([facility]) * Low Sodium Diet ([facility]) documented in this [id number] Hospital course Narrative* Vickey Dawn MD - 11/08/2022 11:18 AM EDT Images from the original note were not included. [facility] DISCHARGE SUMMARY Tristin Powell Account: [id number] Admitted: 11/03/2022 Discharge Date/Time: 11/08/22 11:30 AM [...] Hypertension, HFpEF who presented to [facility] 11/03/2022 with persistent pneumonia despite #2 [...] to rubbing effect. Recommended to go to [facility] for adjustment to prevent valgus deformity [...] Trelegy Ellipta 100-62.5-25 mcg Dsdv Generic drug: ahzcusuwvhf-ociivxnrg-fortpito zolpidem 10 mg tablet Commonly known as: [...] Your Medications These medications were sent to [facility] [id number] [facility] [address] [facility] [address] [facility] [address] [place] [id number] furosemide 20 MG tablet levoFLOXacin 750 MG tablet Physician(s) Family: Flash Lovelace MD, , Address: [address] [place] [address] / [place] [address] Follow Up: Dashawn Orosco DPM [address] [facility] [address] [place] [id number] Schedule an appointment as soon as possible for a visit in 1 week(s) [facility] [address] [facility] [address] [place] [address] Follow up Thank you for allowing us to participate in your care. Schedule an appt with your established screw machine operator swiss type in [place]. Call us with any questions. Angela Guerra MD [address] [place] [address] [address] [facility] [address] Call in 4 week(s) Call in 4-6 weeks after follow up CT chest Additional Information: Patient seen and examined day of discharge. For more information regarding patient's care, including complete radiology reports, please contact [facility] at Patient instructions, including activity, were given to the patient/family at discharge. Please seethe After Visit Summary in the medical record for details. Time spent on discharge: > 30 minutes Completed by: Vickey Dawn on 11/08/22, 11:30 AM documented in this [id number] Consult note* Monica Vázquez RN - 11/07/2022 [...] of early recognition and report to their screw machine operator swiss type,PCP or health care provider. Daily weight monitoring [...] fluid and lifestyle changes. MATERIALS, RESOURCES GIVEN: [facility] Guide to Living with Heart Failure book, 5 day low sodium+ Diabetic sample menu. Clinical references attached to AVS. [id number] Consult note* Monica Vázquez RN - 11/07/2022 [...] of early recognition and report to their screw machine operator swiss type,PCP or health care provider. Daily weight monitoring [...] fluid and lifestyle changes. MATERIALS, RESOURCES GIVEN: [facility] Guide to Living with Heart Failure book, 5 day low sodium+ Diabetic sample menu. Clinical references attached to AVS. * Kory Mei CNP - 11/07/2022 10:11 AM EDTAssociated Order(s): IP CONSULT TO CARDIOLOGY General Cardiology Inpatient Consult Heart & Vascular [facility] 11/07/2022 Kory Mei CNP [facility] RN [phone] Patient: Tristin Powell Date of : 1940 (82 y.o.) Referring Provider: Refer to consult order in electronic medical record PCP: Flash Lovelace MD Printing Machine Operator Tape Rules: Follows with cardiology at [facility] Assessment/Plan: Atypical chest pain Elevated troponins [...] consulted. -Follow up with PCP or personal screw machine operator swiss type in 1-2 weeks Coronary artery disease History of multiple stents and subsequent coronary artery bypass graft x 3 (CHAVEZ to Diag, SVG to OM1, SVG to PDA) at [facility] in [place] 10/2016 Left heart catheterization prior to coronary [...] as outpatient for pneumonia and seen at [facility] ED on 10/30 for fever, persistent frequent cough with associated chest pain, n/v, decrease appetite, weakness, and mild dyspnea. Per patient was told by PCP that there was also Fluid on his lungs . Normal BNP at [facility] ED. Discharged on ATB. Since admit [...] bypass graft. Not following routinely with his screw machine operator swiss type. Imaging: I independently reviewed the EKG and agree with the interpretation(s) with the following comments. SR, isolated flat T wave lead III; ECG today with chest pain: Sr with occasional PVC, TWA lead III,aVF EKG 12-lead Final Result by Interface, Lab Results In [place] [facility] (11/03/2022 1658) Echocardiogram complete w contrast [...] zoster Hyperlipidemia Hypertension PAD (peripheral artery disease) ([facility]) 01/21/2022 Prostate cancer (HCC) Vascular disease Past Surgical History: Procedure Laterality Date AMPUTATION TRANSMETATARSAL Left 10/08/2018 Procedure: LEFT MIDFOOT AMPUTATION; Surgeon: Flynn Mann DPM; Location: [facility] OR; Service: Podiatry ANKLE SURGERY Left BYPASS PERONEAL FEMORAL Right 09/07/2018 Procedure: BYPASS PERONEAL FEMORAL, RIGHT SAPHENOUS VEIN HARVEST, COMPLETION ANGIOGRAM; Surgeon: Mohsen Sarabia MD; Location: [facility] NEURO OR; Service: Cardiovascular CARDIAC CATHETERIZATION Left 09/05/2018 Procedure: Angio Lower Extremity; Surgeon: Ben Hahn MD; Location: [facility] INSPECTOR TESTER SORTER; Service: Cardiovascular CARDIAC SURGERY 2017 triple bypass [...] spray 1 spray Each Nare PRN Jass Barboaz MD 1 sprayat 11/06/22 0835 sodium chloride [...] cardiac issues or concerns. Jaziel Jeffries MD, [facility] Inpatient Rounding [phone] Office [phone] * Aaron Fenton, DPM - 11/07/2022 7:07 AM EDTAssociated Order(s): IP CONSULT TO PODIATRY Critical Limb Care Consult Note Tristin Powell AGE: 82 y.o. GENDER: male : 1940 EPISODE DATE: 11/03/2022 Assessment/Plan: Tristin Powell is an 82 year old male with a history of Prostate Cancer, CAD, PAD (left foot amputation 2018), Hypertension, HFpEF who presented to [facility] 11/03/2022 with persistent pneumonia despite #2 [...] ankle. He will need to go to [facility] for an adjustment to help prevent [...] MIDFOOT AMPUTATION; Surgeon: Flynn Mann DPM; Location: [facility] OR; Service: Podiatry ANKLE SURGERY Left BYPASS PERONEAL FEMORAL Right 09/07/2018 Procedure: BYPASS PERONEAL FEMORAL, RIGHT SAPHENOUS VEIN HARVEST, COMPLETION ANGIOGRAM; Surgeon: Mohsen Sarabia MD; Location: [facility] NEURO OR; Service: Cardiovascular CARDIAC CATHETERIZATION Left 09/05/2018 Procedure: Angio Lower Extremity; Surgeon: Ben Hahn MD; Location: [facility] INSPECTOR TESTER SORTER; Service: Cardiovascular CARDIAC SURGERY 2017 triple bypass [...] Nare route daily . 16 g 12 hxywefspfnm-nkrckusqh-pmyxtscv (Trelegy Ellipta) 100-62.5-25 mcg DsDv 1 puff [...] 6' 1 Wt 113.4 kg (250 lb) BxU130% BMI 32.98 kg/m PHYSICAL EXAM General: The [...] intolerance. 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 The patient's awareness of own capacity and performance is a delivery consultant to return to prior level of function. [...] recently Prior Level of Function Level of [place] - Transfers/Ambulation/Mobility: Independent with household ambulation, Independent with community ambulation Level of [place] - ADLs: Independent Level of [place] - Homemaking: Independent Driving: Patient drives Past Medical History: Diagnosis Date Arthritis Avascular necrosis of bone of hip ([facility]) Claudication ([facility]) Coronary artery disease Herpes zoster Hyperlipidemia Hypertension PAD (peripheral artery disease) ([facility]) 01/21/2022 Prostate cancer ([facility]) Vascular disease Past Surgical History: Procedure Laterality Date AMPUTATION TRANSMETATARSAL Left 10/08/2018 Procedure: LEFT MIDFOOT AMPUTATION; Surgeon: Flynn Mann DPM; Location: [facility] OR; Service: Podiatry ANKLE SURGERY Left BYPASS PERONEAL FEMORAL Right 09/07/2018 Procedure: BYPASS PERONEAL FEMORAL, RIGHT SAPHENOUS VEIN HARVEST, COMPLETION ANGIOGRAM; Surgeon: Mohsen Sarabia MD; Location: [facility] NEURO OR; Service: Cardiovascular CARDIAC CATHETERIZATION Left 09/05/2018 Procedure: Angio Lower Extremity; Surgeon: Ben Hahn MD; Location: [facility] INSPECTOR TESTER SORTER; Service: Cardiovascular CARDIAC SURGERY 2017 triple bypass [...] Cardiology consult completed by Aminah Calixto CNP 3..23. See note for details. * Gustavo Macdonald CNP - 11/04/2022 6:50 AM ESTAssociated Order(s): IP CONSULT TO ORTHOPEDIC SURGERY CONSULT NOTE Patient Name: Tristin Powell Admit Date: [id number] MR #: [id number] : 1940 Physicians: Flash Lovelace MD (Family); [...] HTN, prostate cancer presenting to [facility] 11/03 with CAP. Patient also reports [...] Arthritis Avascular necrosis of bone of hip ([facility]) Claudication (HCC) Coronary artery disease Herpes zoster Hyperlipidemia Hypertension PAD (peripheral artery disease) ([facility]) 01/21/2022 Prostate cancer ([facility]) Vascular disease Past Surgical History: Procedure Laterality Date AMPUTATION TRANSMETATARSAL Left 10/08/2018 Procedure: LEFT MIDFOOT AMPUTATION; Surgeon: Flynn Mann DPM; Location: [facility] OR; Service: Podiatry ANKLE SURGERY Left BYPASS PERONEAL FEMORAL Right 09/07/2018 Procedure: BYPASS PERONEAL FEMORAL, RIGHT SAPHENOUS VEIN HARVEST, COMPLETION ANGIOGRAM; Surgeon: Mohsen Sarabia MD; Location: [facility] NEURO OR; Service: Cardiovascular CARDIAC CATHETERIZATION Left 09/05/2018 Procedure: Angio Lower Extremity; Surgeon: Ben Hahn MD; Location: [facility] INSPECTOR TESTER SORTER; Service: Cardiovascular CARDIAC SURGERY 2017 triple bypass [...] sprays by Each Nare route daily . jaubazljkyz-zizafnxjx-tfhhjjmi (Trelegy Ellipta) 100-62.5-25 mcg DsDv 1 puff [...] his primary care physician. documented in this [id number] Consult note* Kory Mei CNP - 11/07/2022 10:11 AM EDTAssociated Order(s): IP CONSULT TO CARDIOLOGY General Cardiology Inpatient Consult Heart & Vascular [facility] 11/07/2022 Kory Mei CNP [facility] RN [phone] Patient: Tristin Powell Date of : 1940 (82 y.o.) Referring Provider: Refer to consult order in electronic medical record PCP: Flash Lovelace MD Printing Machine Operator Tape Rules: Follows with cardiology at [facility] Assessment/Plan: Atypical chest pain Elevated troponins [...] 20mg BID x 8 doses Cr bump / from admit 1.13-->1.34 and now mildly hypotensive Loop diuretic naive Rec: -Diuretic: Stop IV Lasix; transition to PO Lasix 20mg daily starting 11/08 -2gm Na diet and 2L fluid restriction. HF nurse educator consulted. -Follow up with PCP or personal screw machine operator swiss type in 1-2 weeks Coronary artery disease History of multiple stents and subsequent coronary artery bypass graft x 3 (CHAVEZ to Diag, SVG to OM1, SVG to PDA) at [facility] in [place] 10/2016 Left heart catheterization prior to coronary [...] coronary artery bypass graft x 3 in 2017, and peripheral arterial disease s/p left fem-pop [...] as outpatient for pneumonia and seen at [facility] ED on 10/30 for fever, persistent frequent cough with associated chest pain, n/v, decrease appetite, weakness, and mild dyspnea. Per patient was told by PCP that there was also Fluid on his lungs . Normal BNP at [facility] ED. Discharged on ATB. Since admit [...] bypass graft. Not following routinely with his screw machine operator swiss type. Imaging: I independently reviewed the EKG and agree with the interpretation(s) with the following comments. SR, isolated flat T wave lead III; ECG today with chest pain: Sr with occasional PVC, TWA lead III,aVF EKG 12-lead Final Result by Interface, Lab Results In [facility] (11/03/2022 1658) Echocardiogram complete w contrast Final [...] zoster Hyperlipidemia Hypertension PAD (peripheral artery disease) ([facility]) 01/21/2022 Prostate cancer ([facility]) Vascular disease Past Surgical History: Procedure Laterality Date AMPUTATION TRANSMETATARSAL Left 10/08/2018 Procedure: LEFT MIDFOOT AMPUTATION; Surgeon: Flynn Mann DPM; Location: [facility] OR; Service: Podiatry ANKLE SURGERY Left BYPASS PERONEAL FEMORAL Right 09/07/2018 Procedure: BYPASS PERONEAL FEMORAL, RIGHT SAPHENOUS VEIN HARVEST, COMPLETION ANGIOGRAM; Surgeon: Mohsen Sarabia MD; Location: [facility] NEUR[facility] OR; Service: Cardiovascular CARDIAC CATHETERIZATION Left 09/05/2018 Procedure: Angio Lower Extremity; Surgeon: Ben Hahn MD; Location: [facility] INSPECTOR TESTER SORTER; Service: Cardiovascular CARDIAC SURGERY 2017 triple bypass [...] 1 tablet 1 tablet Oral Q4H PRN Jsas Barboza MD 1 tablet at 11/06/22 2242 [...] cardiac issues or concerns. Jaziel Jeffries MD, [facility] Inpatient Rounding [phone] Office [phone] [facility] Work Phone: 1(272) 831-781003-13-2023 Consult note* Aaron Fenton, SHIRLEY - 11/07/2022 7:07 AM EDTAssociated Order(s): IP CONSULT TO PODIATRY Critical Limb Care Consult Note Tristin Powell AGE: 82 y.o. GENDER: male : 1940 EPISODE DATE: 11/03/2022 Assessment/Plan: Tristin Powell is an 82 year old male with a history of Prostate Cancer, CAD, PAD (left foot amputation 2018), Hypertension, HFpEF who presented to [facility] 11/03/2022 with persistent pneumonia despite #2 [...] ankle. He will need to go to [facility] for an adjustment to help prevent [...] zoster Hyperlipidemia Hypertension PAD (peripheral artery disease) ([facility]) 01/21/2022 Prostate cancer ([facility]) Vascular disease PAST SURGICAL HISTORY Past Surgical History: Procedure Laterality Date AMPUTATION TRANSMETATARSAL Left 10/08/2018 Procedure: LEFT MIDFOOT AMPUTATION; Surgeon: Flynn Mann DPM; Location: [facility] OR; Service: Podiatry ANKLE SURGERY Left BYPASS PERONEAL FEMORAL Right 09/07/2018 Procedure: BYPASS PERONEAL FEMORAL, RIGHT SAPHENOUS VEIN HARVEST, COMPLETION ANGIOGRAM; Surgeon: Mohsen Sarabia MD; Location: [facility] NEUR[facility] OR; Service: Cardiovascular CARDIAC CATHETERIZATION Left 09/05/2018 Procedure: Angio Lower Extremity; Surgeon: Ben Hahn MD; Location: [facility] INSPECTOR TESTER SORTER; Service: Cardiovascular CARDIAC SURGERY 2017 triple bypass [...] Nare route daily . 16 g 12 fmbmshagrmv-gyclxqolu-qxnowrfo (Trelegy Ellipta) 100-62.5-25 mcg DsDv 1 puff [...] 6' 1 Wt 113.4 kg (250 lb) ZxI396% BMI 32.98 kg/m PHYSICAL EXAM General: The [...] Fenton DPM 11/07/2022 at 7:08 AM ote [facility] Work Phone: 1(618) 197-605603-11-2023 Note* Plan of Care - Alma Delia [...] Completed Goal: Knowledge of Enviroment Outcome: Completed [id number] Miscellaneous Notes* Plan of Care - Alma [...] upper arm hematoma - will D/W Dr. Goubeaux - XR reviewed; negative for fracture or [...] in both lower extremities to approximately the rlh-zz-dyhve calf area bilaterally, but there are no signs of infection. There is no redness. documented in this [id number] Consult note* Lyn Cerrato OT - 11/04/2022 [...] intolerance. 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 The patient's awareness of own capacity and performance is a delivery consultant to return to prior level of function. [...] recently Prior Level of Function Level of [place] - Transfers/Ambulation/Mobility: Independent with household ambulation, Independent with community ambulation Level of [place] - ADLs: Independent Level of [place] - Homemaking: Independent Driving: Patient drives Past Medical History: Diagnosis Date Arthritis Avascular necrosis of bone of hip (HCC) Claudication (HCC) Coronary artery disease Herpes zoster Hyperlipidemia Hypertension PAD (peripheral artery disease) (HCC) 01/21/2022 Prostate cancer (HCC) Vascular disease Past Surgical History: Procedure Laterality Date AMPUTATION TRANSMETATARSAL Left 10/08/2018 Procedure: LEFT MIDFOOT AMPUTATION; Surgeon: Flynn Mann DPM; Location: [facility] OR; Service: Podiatry ANKLE SURGERY Left BYPASS PERONEAL FEMORAL Right 09/07/2018 Procedure: BYPASS PERONEAL FEMORAL, RIGHT SAPHENOUS VEIN HARVEST, COMPLETION ANGIOGRAM; Surgeon: Mohsen Sarabia MD; Location: [facility] OR; Service: Cardiovascular CARDIAC CATHETERIZATION Left 09/05/2018 Procedure: Angio Lower Extremity; Surgeon: Ben Hahn MD; Location: [facility] INSPECTOR TESTER SORTER; Service: Cardiovascular CARDIAC SURGERY 2017 triple bypass [...] completion of Occupational Therapy Plan of Care. [id number] Consult note* Eliud Thompson RN - 11/04/2022 11:08 AM EST Associated Order(s): IP CONSULT TO CARDIOLOGY - PERIPHERAL VASC DISEASE Information only. Cardiology consult completed by Aminah Calixto CNP 3.10.23. See note for details. [id number] Note* Quick Note - Rojelio Mackenzie DO [...] follow-up Rojelio Mackenzie, PGY-4 Orthopedic Surgery Resident [employer] Work Phone: 1(476) 867-587403-10-2023 Note* Quick Note - Catina Calixto CNP - 11/04/2022 8:06 AM EST Received consult for patient with chronic PAD s/p L fem-peroneal (GSV) bypass per Dr. Sarabia in 2019. He has no acute issues or lower extremity wounds and denies BLE claudication. No indication for additional inpatient work up/resting. Patient can follow up with Dr. Sarabia as an outpatient. [id number] Evaluation + Plan note* Assessment & Plan [...] 2022 was known to be reduced (0.5) [id number] Evaluation + Plan note* Assessment & Plan [...] Dr. Messina as needed if symptoms persist [id number] Consult note* Gustavo Macdonald CNP - 11/04/2022 6:50 AM EST Associated Order(s): IP CONSULT TO ORTHOPEDIC SURGERY CONSULT NOTE Patient Name: Tristin Powell Admit Date: [id number] MR #: [id number] : 1940 Physicians: Flash Lovelace MD (Family); [...] HTN, prostate cancer presenting to [facility] 11/03 with CAP. Patient also reports [...] Arthritis Avascular necrosis of bone of hip ([facility]) Claudication ([facility]) Coronary artery disease Herpes zoster Hyperlipidemia Hypertension PAD (peripheral artery disease) ([facility]) 01/21/2022 Prostate cancer ([facility]) Vascular disease Past Surgical History: Procedure Laterality Date AMPUTATION TRANSMETATARSAL Left 10/08/2018 Procedure: LEFT MIDFOOT AMPUTATION; Surgeon: Flynn Mann DPM; Location: [facility] OR; Service: Podiatry ANKLE SURGERY Left BYPASS PERONEAL FEMORAL Right 09/07/2018 Procedure: BYPASS PERONEAL FEMORAL, RIGHT SAPHENOUS VEIN HARVEST, COMPLETION ANGIOGRAM; Surgeon: Mohsen Sarabia MD; Location: [facility] OR; Service: Cardiovascular CARDIAC CATHETERIZATION Left 09/05/2018 Procedure: Angio Lower Extremity; Surgeon: Ben Hahn MD; Location: [facility] INSPECTOR TESTER SORTER; Service: Cardiovascular CARDIAC SURGERY 2017 triple bypass [...] sprays by Each Nare route daily . rvsjtvtrztp-vatxzetsl-byafbyiz (Trelegy Ellipta) 100-62.5-25 mcg DsDv 1 puff [...] should follow-up with his primary care physician. [id number] Note* Plan of Care - Deisi Gimenez RN - 11/04/2022 3:01 AM EST Problem: Actual or potential alteration in health Goal: Absence of healthcare acquired conditions Outcome: Partially Met Goal: Knowledge of Interdisciplinary Plan of Care Outcome: Partially Met Goal: Knowledge of Enviroment Outcome: Partially Met Problem: Pressure Ulcer - Risk of Goal: Absence of pressure ulcer Outcome: Partially Met [id number] History and physical note* Duke Claros MD - 11/03/2022 9:58 PM EST [employer] History and Physical Note 11/03/22 Tristin Powell 1940 [id number] Assessment/Plan: Tristin Powell is a 82 y.o. male with a history of Prostate Cancer, CAD, PAD (left foot amputation 2018) HTN, HFpEF who presented to [facility] 11/03/2022 with persistent pneumonia despite #2 [...] HTN, HFpEF who presented to [facility] 11/03/2022 with persistent pneumonia despite #2 [...] MIDFOOT AMPUTATION; Surgeon: Flynn Mann DPM; Location: [facility] OR; Service: Podiatry ANKLE SURGERY Left BYPASS PERONEAL FEMORAL Right 09/07/2018 Procedure: BYPASS PERONEAL FEMORAL, RIGHT SAPHENOUS VEIN HARVEST, COMPLETION ANGIOGRAM; Surgeon: Mohsen Sarabia MD; Location: [facility] NEURO OR; Service: Cardiovascular CARDIAC CATHETERIZATION Left 09/05/2018 Procedure: Angio Lower Extremity; Surgeon: Ben Hahn MD; Location: [facility] INSPECTOR TESTER SORTER; Service: Cardiovascular CARDIAC SURGERY 2017 triple bypass [...] 64 GLUCOSE mg/dL 92 CALCIUM mg/dL 9.5 [id number] History and physical note* Duke Claros MD - 11/03/2022 9:58 PM EST [facility] 11/03/22 Tristin Powell 1940 [id number] Assessment/Plan: Tristin Powell is a 82 y.o. male with a history of Prostate Cancer, CAD, PAD (left foot amputation 2018) HTN, HFpEF who presented to [facility] 11/03/2022 with persistent pneumonia despite #2 [...] HTN, HFpEF who presented to [facility] 11/03/2022 with persistent pneumonia despite #2 [...] MIDFOOT AMPUTATION; Surgeon: Flynn Mann DPM; Location: [facility] OR; Service: Podiatry ANKLE SURGERY Left BYPASS PERONEAL FEMORAL Right 09/07/2018 Procedure: BYPASS PERONEAL FEMORAL, RIGHT SAPHENOUS VEIN HARVEST, COMPLETION ANGIOGRAM; Surgeon: Mohsen Sarabia MD; Location: [facility] NEURO OR; Service: Cardiovascular CARDIAC CATHETERIZATION Left 09/05/2018 Procedure: Angio Lower Extremity; Surgeon: Ben Hahn MD; Location: [facility] INSPECTOR TESTER SORTER; Service: Cardiovascular CARDIAC SURGERY 2017 triple bypass [...] 92 CALCIUM mg/dL 9.5 documented in this [id number] Emergency department Note* MIGUE Berumen - 11/03/2022 9:35 PM EST [facility] to write admission orders. [phone]. [id number] Emergency department Note* MIGUE Berumen - 11/03/2022 9:35 PM EST [facility] to write admission orders. [phone]. * Sharron Khan PA-C - 11/03/2022 5:46 [...] so he went to the ED in [facility]. He had a repeat chest x-ray [...] [facility] of breath [...] Normal BASIC METABOLIC PANEL - Normal Narrative: [facility] has implemented the eGFR calculation approach that does not have a coefficient for race that conforms to the NKF-ASN Task Force Recommendations. CBC AND DIFFERENTIAL Narrative: The following orders were created for panel order CBC w/ Diff. Procedure Abnormality Status --------- ------ CBC Auto Differential[[id number]] Abnormal Final result Please view results for [...] this documentation, there is a possibility of mezcl-o-qdlv errors inherent to this technology that may [...] foot amputation from 2019. documented in this [id number] Note* ED Attestation Note - Ronnie Montoya [...] in both lower extremities to approximately the eim-nm-pobnb calf area bilaterally, but there are no signs of infection. There is no redness. [employer] Work Phone: 1(928) 586-795203-09-2023 Physician Emergency department Note* Sharron Khan PA-C [...] so he went to the ED in [facility]. He had a repeat chest x-ray [...] with COPD and P[facility] with shortness of breath and [...] Normal BASIC METABOLIC PANEL - Normal Narrative: [facility] has implemented the eGFR calculation approach that does not have a coefficient for race that conforms to the NKF-ASN Task Force Recommendations. CBC AND DIFFERENTIAL Narrative: The following orders were created for panel order CBC w/ Diff. Procedure Abnormality Status --------- ------ CBC Auto Differential[[id number]] Abnormal Final result Please view results for [...] this documentation, there is a possibility of jkkcq-c-hrrd errors inherent to this technology that may be missed during proofreading.) Sharron Khan PA-C 11/03/222150 [facility] Work Phone: [phone] Emergency department Triage note* Aimee Owens RN - 11/03/2022 12:43 PM EST Pt arrives to the ED with multiple complaints. Per daughter patient has fluid on his lungs and there is concern for pneumonia. Daughter also states that there is concern for infection in his foot amputation from 2019. [id number] History of Present illness Narrative* Violetta Borjas MA - 09/20/2022 11:[address] Sarabia has ordered a carotid duplex. An attempt was made by phone and a letter was mailed with no response. Patient is due for testing for PAD 05/20. documented in this [id number] History of Present illness Narrative* Dahiana Coelho - 07/14/2022 11:00 AM EST Ortho Nurse - Established Patient Intake Room#: 5 Date: 07/14/2022 10:49 AM Patient: Tristin Powell Sr. MR#: [id number] : 1940 Age: 82 y.o. 1yr R SHANNON Pt stated he is still stiff and can't bend over to put his sock on and has pain when doing that.7-8/10 on the pain scale. Pt stated he doesn't having pain when walking and sitting. Referring Physician: Self, Self Insurance: Payor: MEDICARE [employer] PPO / Plan: MEDICARE [employer] HMO PPO [...] 10:49 AM Patient: Tristin Powell Sr. MR#: [id number] : 1940 Age: 82 y.o. 1yr R [...] Laterality: Right; Surgeon: Dashawn Silvestre MD; Location: [facility] OR PERIPHERAL ANGIOPLASTY N/A 08/09/2018 Laterality: N/A; Surgeon: Isaias Vogt MD; Location: [facility] CARDIAC CATH/EP LAB PERIPHERAL STENT PLACEMENT N/A 08/09/2018 Laterality: N/A; Surgeon: Isaias Vogt MD; Location: [facility]ARDI[facility] CATH/EP LAB ATHERECTOMY PERIPHERAL N/A 08/09/2018 Laterality: N/A; Surgeon: Isaias Vogt MD; Location: [facility]ARDIAC CATH/EP LAB CORONARY STENT PLACEMENT 2007 [...] has No Known Allergies. documented in this [facility]09-06-2022 Evaluation note* Encounter Date Diagnosis Assessment [...] will see him back in 6 months. [facility] Other 08-23-2022 Evaluation note* Encounter Date Diagnosis [...] He understands and agrees with that plan. [facility] Other 08-22-2022 History of Present illness Narrative* Aaron Fenton DPM - 04/18/2022 5:23 PM EDT Refer to note during admission documented in this [id number] Hospital course Narrative* Alexander Pascual MD - 04/15/2022 6:51 PM EDT Images from the original note were not included. [facility] DISCHARGE SUMMARY Tristin Powell Account: [id number] Admitted: 04/14/2022 Discharge Date/Time: 04/15/22 7:44 PM Clinical Summary Handoff to PCP Routine hospital follow up Tristin Powell is a 82 y.o. male with a history of HTN, HFpEF, PAD with bypass/stenting/amputation, CAD who recently discharged 01/21/22 after cellulitis L ankle who presented to [facility] Observation 04/14/2022 with worsening R leg [...] Physician(s) Family: Flash Lovelace MD, , Address: [address] [place] [address] / [facility] [address] Follow Up: Mohsen Sarabia MD [address] [facility] [address] [address] Follow up Call office to schedule followup appointment in ~2 weeks Flash Lovelace MD [address] [place] [id number] Follow up As needed Laboratory Follow Up by [facility]: None Additional Information: Patient seen and examined day of discharge. For more information regarding patient's care, including complete radiology reports, please contact [facility] at Patient instructions, including activity, were given to the patient/family at discharge. Please seethe After Visit Summary in the medical record for details. Completed by: Alexander Pascual on 04/15/22, 7:44 PM documented in this [id number] Note* Plan of Care - Lizz Damon [...] Goal: Absence of falls Outcome: Partially Met [id number] Miscellaneous Notes* Plan of Care - Lizz [...] falls Outcome: Partially Met documented in this [id number] History of Present illness Narrative* Rima Wu, - 04/15/2022 1:01 PM EDT [facility] Observation Progress Note 04/15/2022 Tristin Powell 1940 [id number] Assessment/Plan: Tristin Powell is a 82 y.o. male with a history of HTN, HFpEF, PAD with bypass/stenting/amputation, CAD who recently discharged 01/21/22 after cellulitis L ankle who presented to [facility] Observation 04/14/2022 with worsening R leg [...] Date INR 1.1 04/14/2022 documented in this [id number] Consult note* Darrick Calixto DO - 04/15/2022 [...] CABG x3 who presented to [facility] on 04/14/2022 with CLI of RLE. [...] DO General Surgery PGY-2 Please contact surgical international tax manager division merchandise manager 5PM-6AM and weekends - #[phone] VTS Pager - #[phone] HISTORY OF PRESENT ILLNESS Tristin Powell is a 82 y.o. male with history of PAD, s/p L transmetatarsal amputation (2019, Dr. Mann), s/p peroneal femoral bypass R saphenous vein harvest (2019, Dr. Sarabia), CAD s/p CABG x3 who presented to [facility] on 04/14/2022 with CLI of RLE. Patient presenting with 6 weeks of worsened right lower extremity pain. Patient is limited in his mobility due to his left-sided TMA. Patient reports increasing numbness and pain in his foot as well as claudication symptoms while ambulating. Patient was directed to [facility] by his PCP for evaluation. Per discussion with patient and his son, his lower extremity changes are chronic in nature and he does not have an acute surgical emergency. Patient given the option of outpatient follow-up given these nonacute changes however patient request to stay until the morning to see Dr. Sarabia for evaluation as he lives an hour and in a senior living and has difficulty getting here to see [...] zoster Hyperlipidemia Hypertension PAD (peripheral artery disease) ([facility]) 01/21/2022 Prostate cancer (HCC) Vascular disease Past Surgical History: Procedure Laterality Date AMPUTATION TRANSMETATARSAL Left 10/08/2018 Procedure: LEFT MIDFOOT AMPUTATION; Surgeon: Flynn Mann DPM; Location: [facility] OR; Service: Podiatry ANKLE SURGERY Left BYPASS PERONEAL FEMORAL Right 09/07/2018 Procedure: BYPASS PERONEAL FEMORAL, RIGHT SAPHENOUS VEIN HARVEST, COMPLETION ANGIOGRAM; Surgeon: Mohsen Sarabia MD; Location: [facility] NEURO OR; Service: Cardiovascular CARDIAC CATHETERIZATION Left 09/05/2018 Procedure: Angio Lower Extremity; Surgeon: Ben Hahn MD; Location: [facility] INSPECTOR TESTER SORTER; Service: Cardiovascular CARDIAC SURGERY 2017 triple bypass [...] personally examined the patient and agree with resident/CRUDE TESTER/PA assessment and plan with the following additional [...] it can be done as an outpatient. [employer] Work Phone: [phone]) 555-877908-19-2022 Consult note* Darrick Calixto, - 04/15/2022 2:37 [...] CABG x3 who presented to [facility] on 04/14/2022 with CLI of RLE. [...] Calixto, General Surgery PGY-2 Please contact surgical international tax manager division merchandise manager 5PM-6AM and weekends - #[phone] VTS Pager - #[phone] HISTORY OF PRESENT ILLNESS Tristin Powell is a 82 y.o. male with history of PAD, s/p L transmetatarsal amputation (2019, Dr. Mann), s/p peroneal femoral bypass R saphenous vein harvest (2019, Dr. Sarabia), CAD s/p CABG x3 who presented to [facility] on 04/14/2022 with CLI of RLE. Patient presenting with 6 weeks of worsened right lower extremity pain. Patient is limited in his mobility due to his left-sided TMA. Patient reports increasing numbness and pain in his foot as well as claudication symptoms while ambulating. Patient was directed to [facility] by his PCP for evaluation. Per discussion with patient and his son, his lower extremity changes are chronic in nature and he does not have an acute surgical emergency. Patient given the option of outpatient follow-up given these nonacute changes however patient request to stay until the morning to see Dr. Sarabia for evaluation as he lives an hour and in a senior living and has difficulty getting here to see [...] Arthritis Avascular necrosis of bone of hip ([facility]) Claudication ([facility]) Coronary artery disease Herpes zoster Hyperlipidemia Hypertension PAD (peripheral artery disease) ([facility]) 01/21/2022 Prostate cancer ([facility]) Vascular disease Past Surgical History: Procedure Laterality Date AMPUTATION TRANSMETATARSAL Left 10/08/2018 Procedure: LEFT MIDFOOT AMPUTATION; Surgeon: Flynn Mann DPM; Location: [facility] OR; Service: Podiatry ANKLE SURGERY Left BYPASS PERONEAL FEMORAL Right 09/07/2018 Procedure: BYPASS PERONEAL FEMORAL, RIGHT SAPHENOUS VEIN HARVEST, COMPLETION ANGIOGRAM; Surgeon: Mohsen Sarabia MD; Location: [facility] NEURO OR; Service: Cardiovascular CARDIAC CATHETERIZATION Left 09/05/2018 Procedure: Angio Lower Extremity; Surgeon: Ben Hahn MD; Location: [facility] INSPECTOR TESTER SORTER; Service: Cardiovascular CARDIAC SURGERY 2017 triple bypass EGD N/A 10/10/2018 Procedure: ESOPHAGOGASTRODUODENOSCOPY; Surgeon: Ben Jensen MD; Location: [facility]; Service: Gastroenterology EYE SURGERY Right 2015 FOOT [...] personally examined the patient and agree with resident/CRUDE TESTER/PA assessment and plan with the following additional [...] done as an outpatient. documented in this [id number] Emergency department Note* Rose Bautista RN - 04/15/2022 12:13 AM EDT Patient moved into hospital bed [id number] Emergency department Note* Rose Bautista RN - 04/15/2022 12:13 AM EDT Patient moved into hospital bed * MIGUE Berumen - 04/14/2022 11:24 PM EDT [facility] to write admission orders [id number]. * Carson Brock MD - 04/14/2022 8:24 PM EDT [facility] EMERGENCY DEPARTMENT PCP - Flash Lovelace MD Chief Complaint Patient presents with Leg Swelling HPI MEDICAL DECISION MAKING 82-year-old male presents to [facility] emergency department chief complaint of right [...] an ultrasound ordered by his doctor at [facility] with findings concerningfor stenosis to the superficial femoral artery as well as an occlusion of his popliteal artery. His primary doctor recommended he present here for evaluation from his vascular surgeon Dr. Sarabia and patient presents here via triage. Patient reports compliance with home medications including anticoagulation with Xarelto and aspirin. 82-year-old male presents to [facility] emergency department chief plaint of right [...] time. He will be admitted to the [facility] observation unit. CLINICAL IMPRESSION 1. PAD [...] limits BASIC METABOLIC PANEL - Normal Narrative: [facility] has implemented the [...] Procedure Abnormality Status --------- ------ CBC Auto Differential[[id number]] Abnormal Final result Please view results for [...] 5. Chronic findings including severe pancolonic diverticulosis. [facility] Workstation ID: [id number] Medications Ordered/Given During ED [...] Arthritis Avascular necrosis of bone of hip ([facility]) Claudication ([facility]) Herpes zoster Hyperlipidemia Hypertension PAD (peripheral artery disease) ([facility]) 01/21/2022 Prostate cancer ([facility]) Vascular disease Past Surgical History Past Surgical History: Procedure Laterality Date AMPUTATION TRANSMETATARSAL Left 10/08/2018 Procedure: LEFT MIDFOOT AMPUTATION; Surgeon: Flynn Mann DPM; Location: [facility] OR; Service: Podiatry ANKLE SURGERY Left BYPASS PERONEAL FEMORAL Right 09/07/2018 Procedure: BYPASS PERONEAL FEMORAL, RIGHT SAPHENOUS VEIN HARVEST, COMPLETION ANGIOGRAM; Surgeon: Mohsen Sarabia MD; Location: [facility] NEURO OR; Service: Cardiovascular CARDIAC CATHETERIZATION Left 09/05/2018 Procedure: Angio Lower Extremity; Surgeon: Ben Hahn MD; Location: [facility] INSPECTOR TESTER SORTER; Service: Cardiovascular CARDIAC SURGERY 2017 triple bypass [...] portions of this note were created using [employer] voice recognition software.* Carson Brock MD 04/14/222320 * Amairani Bucio RN - 04/14/2022 7:29 PM EDT Patient arrives in a wheelchair with a cc of right leg swelling. The patient was at [facility] and they told him he has a blood clot in the right leg and he needs to come down to [facility] to see hisvascular surgeon that he sees here. documented in this [id number] History and physical note* Jagruti Moore Jr., MD - 04/14/2022 11:51 PM EDT Images from the original note were not included. [facility] Obs History and Physical Note 04/15/22 Tristin Powell 1940 [id number] Assessment/Plan: Tristin Powell is a 82 y.o. male with a history of HTN, HFpEF, PAD with bypass/stenting/amputation, CAD who recently discharged 01/21/22 after cellulitis L ankle who presented to [facility] Observation 04/14/2022 with worsening R leg pain and outpatient u/s showing stenois of superficial femoral artery and occlusion of popliteal artery. Vascular surgery consulted and requested [facility] obs admission. Ct angiowith lower extrem with no change since 12/2021. PAD: R leg pain, known PAD. AYMILE 04/14/22 with 0.59 showing mild small vessel [...] MIDFOOT AMPUTATION; Surgeon: Flynn Mann DPM; Location: [facility] OR; Service: Podiatry ANKLE SURGERY Left BYPASS PERONEAL FEMORAL Right 09/07/2018 Procedure: BYPASS PERONEAL FEMORAL, RIGHT SAPHENOUS VEIN HARVEST, COMPLETION ANGIOGRAM; Surgeon: Mohsen Sarabia MD; Location: [facility] NEURO OR; Service: Cardiovascular CARDIAC CATHETERIZATION Left 09/05/2018 Procedure: Angio Lower Extremity; Surgeon: Ben Hahn MD; Location: [facility] INSPECTOR TESTER SORTER; Service: Cardiovascular CARDIAC SURGERY 2017 triple bypass [...] Results Component Value Date INR 1.1 04/14/2022 [id number] History and physical note* Jagruti Moore Jr., MD - 04/14/2022 11:51 PM EDT Images from the original note were not included. [facility] Obs History and Physical Note 04/15/22 Tristin Powell 1940 [id number] Assessment/Plan: Tristin Powell is a 82 y.o. male with a history of HTN, HFpEF, PAD with bypass/stenting/amputation, CAD who recently discharged 01/21/22 after cellulitis L ankle who presented to [facility] Observation 04/14/2022 with worsening R leg [...] MIDFOOT AMPUTATION; Surgeon: Flynn Mann DPM; Location: [facility] OR; Service: Podiatry ANKLE SURGERY Left BYPASS PERONEAL FEMORAL Right 09/07/2018 Procedure: BYPASS PERONEAL FEMORAL, RIGHT SAPHENOUS VEIN HARVEST, COMPLETION ANGIOGRAM; Surgeon: Mohsen Sarabia MD; Location: [facility] NEURO OR; Service: Cardiovascular CARDIAC CATHETERIZATION Left 09/05/2018 Procedure: Angio Lower Extremity; Surgeon: Ben Hahn MD; Location: [facility] INSPECTOR TESTER SORTER; Service: Cardiovascular CARDIAC SURGERY 2017 triple bypass [...] Date INR 1.1 04/14/2022 documented in this [id number] Emergency department Note* MIGUE Berumen - 04/14/2022 11:24 PM EDT [facility] to write admission orders [phone]. [id number] Physician Emergency department Note* Carson Brock MD - 04/14/2022 8:24 PM EDT [facility] EMERGENCY DEPARTMENT PCP - Flash Lovelace MD Chief Complaint Patient presents with Leg Swelling HPI MEDICAL DECISION MAKING 82-year-old male presents to [facility] emergency department chief complaint of right [...] an ultrasound ordered by his doctor at [facility] with findings concerningfor stenosis to the superficial femoral artery as well as an occlusion of his popliteal artery. His primary doctor recommended he present here for evaluation from his vascular surgeon Dr. Sarabia and patient presents here via triage. Patient reports compliance with home medications including anticoagulation with Xarelto and aspirin. 82-year-old male presents to [facility] emergency department chief plaint of right [...] time. He will be admitted to the [facility] observation unit. CLINICAL IMPRESSION 1. PAD [...] limits BASIC METABOLIC PANEL - Normal Narrative: [facility] has implemented the [...] Procedure Abnormality Status --------- ------ CBC Auto Differential[[id number]] Abnormal Final result Please view results for [...] 5. Chronic findings including severe pancolonic diverticulosis. [facility] Workstation ID: [id number] Medications Ordered/Given During ED [...] necrosis of bone of hip (HCC) Claudication ([facility]) Herpes zoster Hyperlipidemia Hypertension PAD (peripheral artery disease) ([facility]) 01/21/2022 Prostate cancer ([facility]) Vascular disease Past Surgical History Past Surgical History: Procedure Laterality Date AMPUTATION TRANSMETATARSAL Left 10/08/2018 Procedure: LEFT MIDFOOT AMPUTATION; Surgeon: Flynn Mann DPM; Location: [facility] OR; Service: Podiatry ANKLE SURGERY Left BYPASS PERONEAL FEMORAL Right 09/07/2018 Procedure: BYPASS PERONEAL FEMORAL, RIGHT SAPHENOUS VEIN HARVEST, COMPLETION ANGIOGRAM; Surgeon: Mohsen Sarabia MD; Location: [facility] NEURO OR; Service: Cardiovascular CARDIAC CATHETERIZATION Left 09/05/2018 Procedure: Angio Lower Extremity; Surgeon: Ben Hahn MD; Location: [facility] INSPECTOR TESTER SORTER; Service: Cardiovascular CARDIAC SURGERY 2017 triple bypass [...] portions of this note were created using [employer] voice recognition software.* Carson Brock MD [id number] [facility] Work Phone: 1(631) 797-363608-18-2022 Emergency department Triage note* Amairani Bucio RN - 04/14/2022 7:29 PM EDT Patient arrives in a wheelchair with a cc of right leg swelling. The patient was at [facility] and they told him he has a blood clot in the right leg and he needs to come down to [facility] to see hisvascular surgeon that he sees here. [id number] History of Present illness Narrative* Katie Anna RN - 04/14/2022 5:54 PM EDT Vascular Resident paged twice, awaiting response Dr. Sarabia notified that patient is coming to [facility] ED for further evaluation. documented in this [id number] NoteFINDINGS: ARTERIAL EVALUATION RIGHT LEFT VELOCITIES PHASICITY [...] [facility]07-01-2022 History of Present illness Narrative* Angela Guerra MD - 02/25/2022 10:00 AM EDT PULMONOLOGY CONSULT 02/25/2022 Patient: Tristin Powell Date of : 1940 Site: [facility] Referring Provider: Refer to consult order in electronic medical record Provider: Angela Guerra MD ASSESSMENT/PLAN: Tristin Powell 82 y.o. 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 He reports [...] MIDFOOT AMPUTATION; Surgeon: Flynn Mann DPM; Location: [facility] OR; Service: Podiatry ANKLE SURGERY Left BYPASS PERONEAL FEMORAL Right 09/07/2018 Procedure: BYPASS PERONEAL FEMORAL, RIGHT SAPHENOUS VEIN HARVEST, COMPLETION ANGIOGRAM; Surgeon: Mohsen Sarabia MD; Location: [facility] NEURO OR; Service: Cardiovascular CARDIAC CATHETERIZATION Left 09/05/2018 Procedure: Angio Lower Extremity; Surgeon: Ben Hahn MD; Location: [facility] INSPECTOR TESTER SORTER; Service: Cardiovascular CARDIAC SURGERY 2017 triple bypass [...] Radiology, Cardiology, and Medications documented in this [id number] History of Present illness Narrative* Alma Delia Page RN - 01/21/2022 2:58 PM EDT This RN went over discharge instructions and prescriptions with the patient. Pt verbalized understanding. All questions were answered. IV was removed. All personal belongings sent home with patient. PT was taken down by wheelchair to Red main entrance. * Gustavo Arteaga Lisa, - 01/21/2022 7:01 AM EDT [facility] 01/21/2022 Tristin Powell 1940 [id number] Assessment/Plan: Tristin Powell is a 82 y.o. male with a history of HTN, CAD, PVD who presented to [facility] 01/18/2022 with progressive left ankle pain, redness, swelling not improved with oral antibiotics. Admit XR non-acute, temp 100.7, CRP 63.5, WBC 6.76, ESR 18. Cultures with no growth to date. LLE Cellulitis: Per chart, hx MRSA in 2019. 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 Admit temp 100.7, has remained afebrile ever since. No leukocytosis. Admit blood cultures NGTD. Admit CTA/runoff with no evidence of deeper infection, LLE graft patent. Continue vancomycin, will plan to transition to PO Bactrim on 01/21.Continue pain control. Recommend outpatient follow-up with [facility] in [place]. Bilateral PAD: Per history. LLE angio w/ [...] (PF) 5 mL Intravenous Q8H [facility] tiotropium bromide 2 puff Inhalation Daily vancomycin 1,750 mg Intravenous Q18H Labs, Imaging and Studies reviewed: Results from last 7 days Lab Units 01/21/22 0604 01/20/22 0801/19/22 0336 WBC K/mcL 4.08* 4.76 5.34 HGB [...] pancreatic lesion.He will follow up with his suit attendant and [facility] in [place] to determine if his prothesis could be [...] calcified granulomas. -Solitary lung nodule malignancy risk ([place]) score: 17.6% -Recommend PET as an outpatient and follow up with [facility] closer to home. Possible biopsy iffindings persist. [...] Carson Banks MD 1:01 PM 01/20/22 Pager: [phone] Chief Complaint Chief Complaint Patient presents with [...] and recommend this to be done at [facility] with either Drs. Carson Gallagher [...] 1200. Pharmacist: Rossana Fernandez RP,PharmD Contact Number: [phone] ([place]) or secure chat * Gustavo Gonzalez DO - 01/20/2022 7:01 AM EDT [facility] [place] 01/20/2022 Tristin Powell 1940 [id number] Assessment/Plan: Tristin Powell is a 82 y.o. male with a history of HTN, CAD, PVD who presented to [facility] 01/18/2022 with progressive left ankle pain, redness, swelling not improved with oral antibiotics. Admit XR non-acute, temp 100.7, CRP 63.5, WBC 6.76, ESR 18. LLE Cellulitis: Per chart, hx MRSA in 2019. 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 Admit temp 100.7, has remained afebrile ever since. No leukocytosis. Admit blood cultures NGTD. Admit CTA/runoff with no evidence of deeper infection, LLE graft patent. Continue vancomycin, will plan to transition to PO Bactrim on 01/21.Continue pain control. Recommend outpatient follow-up with [facility] in [place]. Bilateral PAD: Per history. LLE angio w/ [...] Amputation, CAD who presented to [facility] on 01/18/22 with 3-4 days of [...] improving. Discussed he should follow up with [facility] in [place] to further explore if his stump prothesis [...] Rosas MD - 01/19/2022 6:43 AM EDT [facility] 01/19/2022 Tristin Bazan Sherry 1940 [id number] Assessment/Plan: Tristin Powell is a 82 y.o. male with a history of HTN, CAD, PVD who presented to [facility] 01/18/2022 with progressive left ankle pain, redness, swelling not improved with oral antibiotics. Admit XR non-acute, temp 100.7, CRP 63.5, WBC 6.76, ESR 18. LLE Cellulitis: Per chart, hx MRSA in 2019. 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 Admit temp 100.7. [...] mmol/L 108 -- 103 BICARB mmol/L -- BUN mg/dL 13 -- 14 POC BUN mg/dL -- 14 -- CREATININE mg/dL 1.08 -- 1.10 POC CREATININE (EPOC) mg/dL -- 1.35* -- EGFR mL/min/1.73 m2 63 -- 62 GLUCOSE mg/dL 90 -- 107* CALCIUM mg/dL 8.4 -- 9.2 Associated attestation - Fam, Muna Bhatti MD - 01/20/2022 6:38 AM EDT Attending Attestation (GC) Tristin Powell is a 82 y.o. male with a history of HTN, HFpEF, PAD complicated by Bypass, Stenting, and L Foot Amputation, CAD who presented to [facility] on 01/18/22 with 3-4 days of [...] urine output (if available) daily.vancomyicin / aminoglycoside recommendations:[id number]:s} Pharmacy will continue to follow, order levels, and make adjustments as needed. Please call pharmacy with questions. Current antibiotic regimen includes: ceftriaxone 2000mg q24h Objective: Ht Readings from Last 1 Encounters: 01/18/22 6' 2 (188 cm) Wt Readings from Last 1 Encounters: 01/18/22 113.4 kg (250 lb) Imperial body weight: 82.2 kg (181 lb 3.5 [...] Component Value Units Date/Time Blood Culture Aerobic/Anaerobic [[id number]] (Normal) Collected: 01/18/222104 Order Status: Completed Specimen: Blood, Peripheral Updated: 01/18/222357 Culture In Progress; No Growth to Date Blood Culture Aerobic/Anaerobic [[id number]] (Normal) Collected: 01/18/222104 Order Status: Completed Specimen: Blood, Peripheral Updated: 01/18/222357 Culture In Progress; No Growth to Date Pharmacist: El Owen RPh,PharmD Contact Number: documented in this [id number] Hospital course Narrative* Muna Otto MD - 01/21/2022 2:32 PM EDT Images from the original note were not included. MED[facility] DISCHARGE SUMMARY Tristin PowellN: [id number] Account: [id number] Admitted: 01/18/2022 PCP: Flash Lovelace MD Discharge [...] Amputation, CAD who presented to [facility] on 01/18/22 with 3-4 days of [...] lesion. He will follow up with his suit attendant (Dr. Mann) and [facility] in [place] to determine if his prothesis could be [...] Your Medications These medications were sent to [facility] [id number] [facility] [address] [facility] [address] [facility] [address] [facility] [address] albuterol 2.5 mg /3 mL (0.083 %) nebulizer solution sulfamethoxazole-trimethoprim 800-160 mg per tablet tiotropium bromide 2.5 mcg/actuation Mist Physician(s) Family: Flash Lovelace MD, , Address: [address] [place] [address] / [facility] [address] Follow Up: Flash Lovelace MD [address] [facility] [id number] Follow up Carson Gallagher MD [address] [place] [address] [address] [id number] Follow up Please call to set up appointment to follow up on your lung nodule and newly diagnosed COPD (chronic obstructive pulmonary disease) Flynn Mann DPM [address] [facility] [address] [facility] [address] Schedule an appointment as soon as possible for a visit Additional Information: Patient seen and examined day of discharge. For more information regarding patient's care, including complete radiology reports, please contact [facility] at Patient instructions, including activity, were given to the patient/family at discharge. Please seethe After Visit Summary in the medical record for details. Time spent on discharge: > 30 minutes Completed by: Muna Otto on 01/21/22, 2:32 PM documented in this [id number] Hospital Discharge instructions * Discharge Instr - [...] PCP to discuss further pancreatic workup - [facility] in [place], [place] to discuss your prosthetics. Thank you for letting us be a part of your care team, [facility] * Attachments The following attachments cannot be sent through Care Everywhere. * Cellulitis ([place]) * Pulmonary Nodules: General Info ([place]) documented in this [id number] Consult note* Leeanna Melgoza, OT - 01/21/2022 [...] deficit. The patient's home setup is a delivery consultant, family / caregiver support is a delivery consultant for return to prior level of function. The patient's compliance is a delivery consultant to return to prior level of function. [...] Lift chair ADL Equipment: (none; denied after HSANNON) Additional Objective Details - Home Living: Only occasionally uses walker and cane at baseline. Prior Level of Function Receives Help From: Family Level of [place] - Transfers/Ambulation/Mobility: Independent with functional transfers, Independent with household ambulation, Independent with community ambulation Level of [place] - ADLs: Independent Level of [place] - Homemaking: Independent Driving: Patient drives Vocational: [...] MIDFOOT AMPUTATION; Surgeon: Flynn Mann DPM; Location: [facility] OR; Service: Podiatry ANKLE SURGERY Left BYPASS PERONEAL FEMORAL Right 09/07/2018 Procedure: BYPASS PERONEAL FEMORAL, RIGHT SAPHENOUS VEIN HARVEST, COMPLETION ANGIOGRAM; Surgeon: Mohsen Sarabia MD; Location: [facility] NEURO OR; Service: Cardiovascular CARDIAC CATHETERIZATION Left 09/05/2018 Procedure: Angio Lower Extremity; Surgeon: Ben Hahn MD; Location: [facility] INSPECTOR TESTER SORTER; Service: Cardiovascular CARDIAC SURGERY 2017 triple bypass [...] completion of Occupational Therapy Plan of Care. [id number] Consult note* Leeanna Melgoza OT - 01/21/2022 [...] deficit. The patient's home setup is a delivery consultant, family / caregiver support is a delivery consultant for return to prior level of function. The patient's compliance is a delivery consultant to return to prior level of function. [...] Function Receives Help From: Family Level of [place] - Transfers/Ambulation/Mobility: Independent with functional transfers, Independent with household ambulation, Independent with community ambulation Level of [place] - ADLs: Independent Level of [place] - Homemaking: Independent Driving: Patient drives Vocational: [...] MIDFOOT AMPUTATION; Surgeon: Flynn Mann DPM; Location: [facility] OR; Service: Podiatry ANKLE SURGERY Left BYPASS PERONEAL FEMORAL Right 09/07/2018 Procedure: BYPASS PERONEAL FEMORAL, RIGHT SAPHENOUS VEIN HARVEST, COMPLETION ANGIOGRAM; Surgeon: Mohsen Sarabia MD; Location: [facility] NEURO OR; Service: Cardiovascular CARDIAC CATHETERIZATION Left 09/05/2018 Procedure: Angio Lower Extremity; Surgeon: Ben Hahn MD; Location: [facility] INSPECTOR TE[facility] SORTER; Service: Cardiovascular CARDIAC SURGERY 2017 triple bypass [...] Contact guard assist (when in stand-scoot posture.) Supervisor Sewing Room - Standing Dynamic: BUE (wheelchair; and NWB on LLE.) Loss of Balance- Standing Dynamic: intermittent Bed Mobility Rolling: Modified independent Supine to Sit: Modified independent Sit to Supine: Modified independent Supervisor Sewing Room: bedrails, bed positioning mechanics Transfers Squat Pivot Transfers: Stand by assist, Contact guard assist Supervisor Sewing Room: wheelchair Additional Transfer Trial 2: Yes Squat Pivot Transfers Trial 2: Stand by assist, Contact guard assist Supervisor Sewing Room Trial 2: wheeled walker Gait/Locomotion Wheelchair Mobility: [...] baseline. Prior Level of Function Level of [place] - Transfers/Ambulation/Mobility: Independent with functional transfers, Independent with household ambulation Level of [place] - ADLs: Independent Subjective Impression - Prior [...] MIDFOOT AMPUTATION; Surgeon: Flynn Mann DPM; Location: [facility] OR; Service: Podiatry ANKLE SURGERY Left BYPASS PERONEAL FEMORAL Right 09/07/2018 Procedure: BYPASS PERONEAL FEMORAL, RIGHT SAPHENOUS VEIN HARVEST, COMPLETION ANGIOGRAM; Surgeon: Mohsen Sarabia MD; Location: [facility]UR[facility] OR; Service: Cardiovascular CARDIAC CATHETERIZATION Left 09/05/2018 Procedure: Angio Lower Extremity; Surgeon: Ben Hahn MD; Location: [facility] INSPECTOR TE[facility]TER; Service: Cardiovascular CARDIAC SURGERY 2017 triple bypass [...] calcified granulomas. -Solitary lung nodule malignancy risk ([place]) score: 17.6% -Recommend PET as an outpatient and follow up with [facility] closer to home. Possible biopsy iffindings persist. [...] Ngoc Banks MD Preliminary Medicine PGY1 Pager: [phone] Reason for Consultation: Suspicious Pulm nodule with [...] dust over the years while working in [employer]. Denies recent weight loss. Notes a few [...] MIDFOOT AMPUTATION; Surgeon: Flynn Mann DPM; Location: [facility] OR; Service: Podiatry ANKLE SURGERY Left BYPASS PERONEAL FEMORAL Right 09/07/2018 Procedure: BYPASS PERONEAL FEMORAL, RIGHT SAPHENOUS VEIN HARVEST, COMPLETION ANGIOGRAM; Surgeon: Mohsen Sarabia MD; Location: [facility]UR[facility] OR; Service: Cardiovascular CARDIAC CATHETERIZATION Left 09/05/2018 Procedure: Angio Lower Extremity; Surgeon: Ben Hahn MD; Location: [facility] INSPECTOR TE[facility] SORTER; Service: Cardiovascular CARDIAC SURGERY 2017 triple bypass [...] data reviewed No results for input(s): PHART, CZK1MYB, PO2ART, Z9GKUDHA, RESPRATE, TIDALVOL, PEEP, L6JTXEQE in the last 72 hours. Recent Labs 01/18/22210401/19/22 0336 WBC 6.76 5.34 HGB 14.0 12.4* PLT 150 115* Recent Labs 01/18/22210401/18/22211622 0336 NA 138 -- 141 K 4.2 -- 4.1 CL 103 -- 108 BICARB -- 22 BUN 14 14 13 CREATININE [...] and recommend this to be done at [facility] with either Drs. Carson Gallagher [...] Medicine 5:26 PM 01/19/22 documented in this [id number] Consult note* Jay Tarango, PT - 01/20/2022 3:59 PM EDT Physical Therapy PHYSICAL THERAPY EVALUATION and TREATMENT NOTE PHYSICAL THERAPY EVALUATION Skilled Therapy Needs After Discharge Anticipate Resolution of Current Assessment Limitations Including: Mechanical Barriers, Social Support Are Skilled Therapy Services Needed After Discharge: Yes Intensity of Skilled Therapy: 2-3 days per week (Pt's current [facility] score is low mostly because he did [...] Contact guard assist (when in stand-scoot posture.) Supervisor Sewing Room - Standing Dynamic: BUE (wheelchair; and NWB on LLE.) Loss of Balance- Standing Dynamic: intermittent Bed Mobility Rolling: Modified independent Supine to Sit: Modified independent Sit to Supine: Modified independent Supervisor Sewing Room: bedrails, bed positioning mechanics Transfers Squat Pivot Transfers: Stand by assist, Contact guard assist Supervisor Sewing Room: wheelchair Additional Transfer Trial 2: Yes Squat Pivot Transfers Trial 2: Stand by assist, Contact guard assist Supervisor Sewing Room Trial 2: wheeled walker Gait/Locomotion Wheelchair Mobility: [...] baseline. Prior Level of Function Level of [place] - Transfers/Ambulation/Mobility: Independent with functional transfers, Independent with household ambulation Level of [place] - ADLs: Independent Subjective Impression - Prior [...] MIDFOOT AMPUTATION; Surgeon: Flynn Mann DPM; Location: [facility] OR; Service: Podiatry ANKLE SURGERY Left BYPASS PERONEAL FEMORAL Right 09/07/2018 Procedure: BYPASS PERONEAL FEMORAL, RIGHT SAPHENOUS VEIN HARVEST, COMPLETION ANGIOGRAM; Surgeon: Mohsen Sarabia MD; Location: [facility] NEURO OR; Service: Cardiovascular CARDIAC CATHETERIZATION Left 09/05/2018 Procedure: Angio Lower Extremity; Surgeon: Ben Hahn MD; Location: [facility] INSPECTOR TESTER SORTER; Service: Cardiovascular CARDIAC SURGERY 2017 triple bypass [...] hospital or completion of Physical Therapy Plan. [id number] Note* Sign Off Note - David Christy MD - 01/20/2022 12:38 PM EDT Pulmonary Medicine Sign-Off Medications: Bronchodilators: Recommend initiating Spiriva with PRN Albuterol on dsicharge Home Respiratory Equipment: N/A Follow-up: Imaging: Follow up PET/CT Scan KAJAL in outpatient setting. Please set up at [facility] with Dr Carson Cm or Angela Guerra with referral Pulmonary Function Testing: For diagnosis of COPD Patient with suspicious lung nodule and severe emphysema changes. Also uses Afrin, this should be limited to 2-3 days use at most at a time. Please call with questions David Christy M.D. Internal Medicine PGY-3 Pager: [phone] [facility] Work Phone: [phone] Miscellaneous Notes* Sign Off Note - David Christy MD - 01/20/2022 12:38 PM EDT Pulmonary Medicine Sign-Off Medications: Bronchodilators: Recommend initiating Spiriva with PRN Albuterol on dsicharge Home Respiratory Equipment: N/A Follow-up: Imaging: Follow up PET/CT Scan KAJAL in outpatient setting. Please set up at [facility] with Dr Carson Cm or Angela Guerra with referral Pulmonary Function Testing: For diagnosis of COPD Patient with suspicious lung nodule and severe emphysema changes. Also uses Afrin, this should be limited to 2-3 days use at most at a time. Please call with questions David Christy M.D. Internal Medicine PGY-3 Pager: [phone] * ED Procedure Note - Mikey Mcguire [...] and Critical Limb consultation. documented in this [id number] Consult note* Carson Banks MD - 01/19/2022 [...] calcified granulomas. -Solitary lung nodule malignancy risk ([place]) score: 17.6% -Recommend PET as an outpatient and follow up with [facility] closer to home. Possible biopsy iffindings persist. [...] Ngoc Banks MD Preliminary Medicine PGY1 Pager: [phone] Reason for Consultation: Suspicious Pulm nodule with [...] dust over the years while working in [employer]. Denies recent weight loss. Notes a few [...] MIDFOOT AMPUTATION; Surgeon: Flynn Mann DPM; Location: [facility] OR; Service: Podiatry ANKLE SURGERY Left BYPASS PERONEAL FEMORAL Right 09/07/2018 Procedure: BYPASS PERONEAL FEMORAL, RIGHT SAPHENOUS VEIN HARVEST, COMPLETION ANGIOGRAM; Surgeon: Mohsen Sarabia MD; Location: [facility] NEURO OR; Service: Cardiovascular CARDIAC CATHETERIZATION Left 09/05/2018 Procedure: Angio Lower Extremity; Surgeon: Ben Hahn MD; Location: [facility] INSPECTOR TESTER SORTER; Service: Cardiovascular CARDIAC SURGERY 2017 triple bypass [...] data reviewed No results for input(s): PHART, JVA0FTY, PO2ART, M9YVDILB, RESPRATE, TIDALVOL, PEEP, V6ZRREIY in the last 72 hours. Recent Labs [...] and recommend this to be done at [facility] with either Drs. Carson Gallagher [...] and Critical Care Medicine 5:26 PM 01/19/22 [id number] Emergency department Note* Violetta Stuart RN - 01/19/2022 2:35 PM EDT Patient provided with warm blanket and coffee. Denies any further needs at this time, visitor at bedside. [id number] Emergency department Note* Violetta Stuart RN - [...] Med one to write orders for admission [phone]...checkout complete * Amy Ojeda PA-C - 01/18/2022 11:14 PM EDT Images from the original note were not included. ED PROVIDER NOTE [facility] EMERGENCY DEPARTMENT NAME: Tristin Powell AGE: 82 y.o. : 1940 VISIT DATE: 01/18/2022 CSN: [id number] PCP: Flash Lovelace MD Chief Complaint Patient [...] MIDFOOT AMPUTATION; Surgeon: Flynn Mann DPM; Location: [facility] OR; Service: Podiatry ANKLE SURGERY Left BYPASS PERONEAL FEMORAL Right 09/07/2018 Procedure: BYPASS PERONEAL FEMORAL, RIGHT SAPHENOUS VEIN HARVEST, COMPLETION ANGIOGRAM; Surgeon: Mohsen Sarabia MD; Location: [facility] NEURO OR; Service: Cardiovascular CARDIAC CATHETERIZATION Left 09/05/2018 Procedure: Angio Lower Extremity; Surgeon: Ben Hahn MD; Location: [facility] INSPECTOR TESTER SORTER; Service: Cardiovascular CARDIAC SURGERY 2017 triple bypass [...] Oral 69 18 96 % -- -- 01/18/222246 -- -- -- -- 16 -- -- [...] states he's nauseous, chills documented in this [id number] Emergency department Note* Violetta Stuart RN - 01/19/2022 1:15 PM EDT Patient provided with lunch tray. [id number] Emergency department Note* Maude Vallejo RN - 01/19/2022 10:13 AM EDT patient visited at this time. comfort needs addressed. updated on plan of care. MEAL TRAY DELIVERED AT THIS TIME [id number] History and physical note* Rodri Back DO - 01/18/2022 11:54 PM EDT Images from the original note were not included. [facility] History and Physical Note 01/19/22 Tristin Powell 1940 [id number] Assessment/Plan: Tristin Powell is a 82 y.o. male with a history of HTN, CAD, PVD who presented to [facility] 01/18/2022 with progressive left ankle pain, redness, swelling not improved with oral antibiotics. Admit XR non-acute, temp 100.7, CRP 63.5, WBC 6.76, ESR 18. LLE Cellulitis: Per chart, hx MRSA in 2018. 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 Admit temp 100.7. [...] CAD, PVD who presented to [facility] 01/18/2022 with progressive left ankle pain, [...] MIDFOOT AMPUTATION; Surgeon: Flynn Mann DPM; Location: [facility] OR; Service: Podiatry ANKLE SURGERY Left BYPASS PERONEAL FEMORAL Right 09/07/2018 Procedure: BYPASS PERONEAL FEMORAL, RIGHT SAPHENOUS VEIN HARVEST, COMPLETION ANGIOGRAM; Surgeon: Mohsen Sarabia MD; Location: [facility] NEURO OR; Service: Cardiovascular CARDIAC CATHETERIZATION Left 09/05/2018 Procedure: Angio Lower Extremity; Surgeon: Ben Hahn MD; Location: [facility] INSPECTOR TESTER SORTER; Service: Cardiovascular CARDIAC SURGERY 2017 triple bypass [...] mg/dL -- 107* CALCIUM mg/dL -- 9.2 [id number] History and physical note* Rodri Back DO - 01/18/2022 11:54 PM EDT Images from the original note were not included. [facility] [facility] History and Physical Note 01/19/22 Tristin Powell 1940 [id number] Assessment/Plan: Tristin Powell is a 82 y.o. male with a history of HTN, CAD, PVD who presented to [facility] 01/18/2022 with progressive left ankle pain, redness, swelling not improved with oral antibiotics. Admit XR non-acute, temp 100.7, CRP 63.5, WBC 6.76, ESR 18. LLE Cellulitis: Per chart, hx MRSA in 2018. 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 Admit temp 100.7. [...] CAD, PVD who presented to [facility] 01/18/2022 with progressive left ankle pain, [...] MIDFOOT AMPUTATION; Surgeon: Flynn Mann DPM; Location: [facility] OR; Service: Podiatry ANKLE SURGERY Left BYPASS PERONEAL FEMORAL Right 09/07/2018 Procedure: BYPASS PERONEAL FEMORAL, RIGHT SAPHENOUS VEIN HARVEST, COMPLETION ANGIOGRAM; Surgeon: Mohsen Sarabia MD; Location: [facility] NEURO OR; Service: Cardiovascular CARDIAC CATHETERIZATION Left 09/05/2018 Procedure: Angio Lower Extremity; Surgeon: Ben Hahn MD; Location: [facility] INSPECTOR TESTER SORTER; Service: Cardiovascular CARDIAC SURGERY 2017 triple bypass [...] CALCIUM mg/dL -- 9.2 documented in this [id number] Emergency department Note* Richie Vallecillo - 01/18/2022 11:29 PM EDT Med one to write orders for admission [phone]...checkout complete [id number] Note* ED Procedure Note - Mikey Mcguire MD - 01/18/2022 11:27 PM EDTAssociated Order(s): ECG 12 Lead ECG 12 Lead Date/Time: 01/18/2022 11:27 PM Performed by: Mikey Mcguire MD Authorized by: Mikey Mcguire MD Interpreted by ED attending physician Rhythm: sinus rhythm BPM: 76 Ectopy: PVCs Conduction: conduction normal ST Segments: ST segments normal T Waves: T waves normal Clinical impression: non-specific ECG [facility] Work Phone: [phone] 249-162205-24-2022 Physician Emergency department Note* Amy Ojeda PA-C - 01/18/2022 11:14 PM EDT Images from the original note were not included. ED PROVIDER NOTE [facility] EMERGENCY DEPARTMENT NAME: Tristin Powell AGE: 82 y.o. : 1940 VISIT DATE: 01/18/2022 CSN: [id number] PCP: Flash Lovelace MD Chief Complaint Patient [...] MIDFOOT AMPUTATION; Surgeon: Flynn Mann DPM; Location: [facility] OR; Service: Podiatry ANKLE SURGERY Left BYPASS PERONEAL FEMORAL Right 09/07/2018 Procedure: BYPASS PERONEAL FEMORAL, RIGHT SAPHENOUS VEIN HARVEST, COMPLETION ANGIOGRAM; Surgeon: Mohsen Sarabia MD; Location: [facility] NEURO OR; Service: Cardiovascular CARDIAC CATHETERIZATION Left 09/05/2018 Procedure: Angio Lower Extremity; Surgeon: Ben Hahn MD; Location: [facility] INSPECTOR TESTER SORTER; Service: Cardiovascular CARDIAC SURGERY 2017 triple bypass [...] 79 18 96 % -- -- 01/18/22 210 -- -- -- -- -- 94 % [...] Historical Med Amy Ojeda PA-C 01/19/22 0028 [facility] Work Phone: [phone]) 870-289805-24-2022 Note* ED Attestation Note - Mikey Mcguire [...] for IV antibiotics and Critical Limb consultation. [id number] Emergency department Triage note* Gregory Alvarado LPN - 01/18/2022 8:37 PM EDT Pt arrives to the ED with c/o redness and swelling to left amputated foot. Redness and swelling noted a couple days ago. Pt states he's nauseous, chills [id number] History of Present illness Narrative* Katie Anna RN - 01/18/2022 4:21 PM EDT Received progress note and images of left lower extremity dated 01-18-[address] Flash Webb. See scanned document in Media. documented in this [id number] History of Present illness Narrative* Светлана Briones [...] 9:08 AM Patient: Tristin Powell . MR#: [id number] : 1940 Age: 82 y.o. Referring Physician: [...] Laterality: Right; Surgeon: Dashawn Silvestre MD; Location: [facility] OR PERIPHERAL ANGIOPLASTY N/A 08/09/2018 Laterality: N/A; Surgeon: Isaias Vogt MD; Location: [facility] CARDIAC CATH/EP LAB PERIPHERAL STENT PLACEMENT N/A 08/09/2018 Laterality: N/A; Surgeon: Isaias Vogt MD; Location: [facility] CARDIAC CATH/EP LAB ATHERECTOMY PERIPHERAL N/A 08/09/2018 Laterality: N/A; Surgeon: Isaias Vogt MD; Location: [facility] CARDIAC CATH/EP LAB CORONARY STENT PLACEMENT 2008 [...] 9:08 AM Patient: Tristin Powell Sr. MR#: [id number] : 1940 Age: 82 y.o. Referring Physician: [...] Right; Surgeon: Dashawn Silvestre MD; Location: [facility] PERIPHERAL ANGIOPLASTY N/A 08/09/2018 Laterality: N/A; Surgeon: Isaias Vogt MD; Location: [facility] CARDIAC CATH/EP LAB PERIPHERAL STENT PLACEMENT N/A 08/09/2018 Laterality: N/A; Surgeon: Isaias Vogt MD; Location: [facility] CARDIAC CATH/EP LAB ATHERECTOMY PERIPHERAL N/A 08/09/2018 Laterality: N/A; Surgeon: Isaias Vogt MD; Location: [facility] CARDIAC CATH/EP LAB CORONARY STENT PLACEMENT [...] has No Known Allergies. [facility] History of Present illness Narrative* Ileana [...] Arthritis Avascular necrosis of bone of hip ([facility]) Claudication ([facility]) Herpes zoster Hyperlipidemia Hypertension Prostate cancer ([facility]) Vascular disease Past Medical History Pertinent Negatives: Diagnosis Date Noted Anemia 10/08/2018 Angina pectoris ([facility]) 10/08/2018 Anxiety 10/08/2018 Arrhythmia 10/08/2018 Asthma 10/08/2018 Atrial fibrillation ([facility]) 10/08/2018 Back pain 10/08/2018 Bladder problem 10/08/2018 Bleeding disorder ([facility]) 10/08/2018 Cataract 10/08/2018 CHF (congestive heart failure) ([facility]) 10/08/2018 Cholelithiasis 10/08/2018 Chronic kidney disease (CKD) 10/08/2018 Chronic pain disorder 10/08/2018 Clostridium difficile infection 10/08/2018 Complication of anesthesia 10/08/2018 COPD (chronic obstructive pulmonary disease) ([facility]) 10/08/2018 Crohn's disease ([facility]) 10/08/2018 Deep vein thrombosis ([facility]) 10/08/2018 Dermatitis 10/08/2018 Diabetes mellitus type I ([facility]) 10/08/2018 Diabetes mellitus, type 2 ([facility]) 10/08/2018 Diverticulosis 10/08/2018 Emphysema of lung ([facility]) 10/08/2018 Fibromyalgia, primary 10/08/2018 Hard to intubate 10/08/2018 Headache 10/08/2018 HIV disease ([facility]) 10/08/2018 Infectious viral hepatitis 10/08/2018 MRSA (methicillin resistant Staphylococcus aureus) 10/08/2018 Neck pain 10/08/2018 Nephrolithiasis 10/08/2018 Osteoporosis 10/08/2018 Overactive bladder 10/08/2018 PAD (peripheral artery disease) ([facility]) 10/08/2018 Parkinson's disease ([facility]) 10/08/2018 Peripheral neuropathy 10/08/2018 Postoperative retention of urine 10/08/2018 Problem with Qureshi catheter ([facility]) 10/08/2018 Rheumatoid arthritis ([facility]) 10/08/2018 Seizures ([facility]) 10/08/2018 Sleep apnea, obstructive 10/08/2018 Stroke ([facility]) 10/08/2018 Thrombophlebitis 10/08/2018 TIA (transient ischemic attack) [...] Ileana Kang DO 12/28/2021 documented in this [id number] History of Present illness Narrative* Hill Marquez, ISABELLA - 11/24/2021 9:50 AM EDT Ortho Nurse - Established Patient Intake Room#: 2 4 month Right SHANNON D/A, about 10 days ago for no reason he started having radiating pain upto an 8, no pain when sitting, was doing fine before this Date: 11/24/2021 9:46 AM Patient: Tristin Baazn Sherry Lima MR#: [id number] : 1940 Age: 81 y.o. Referring Physician: Self, Self Insurance: Payor: MEDICARE [employer] PPO / Plan: MEDICARE [employer] HMO PPO [...] from increased radiating pain up to a 04/06. He states he had no pain prior [...] 9:46 AM Patient: Tristin Powell Sr. MR#: [id number] : 1940 Age: 81 y.o. Referring Physician: [...] has No Known Allergies. [facility] No data available for this section [facility] evaluation + Plan note Future Appointments Appointment Date:12/26/2023 01:00:00 PM Scheduled Provider:BRENNA MOSQUERA PA-C Location:[facility] Appointment Type:URO Office Visit Diagnostic Tests Pending * PSA Total 12/20/22 [facility] evaluation note* Diagnosis Bilateral carotid artery stenosis- Primary Occlusion and stenosis of carotid artery without mention of cerebral infarction PAD (peripheral artery disease) (HCC) Unspecified peripheral vascular disease [facility] Diagnosis PAD (peripheral artery disease) (HCC)- Primary Unspecified peripheral vascular disease [facility] Diagnosis Pain in prosthetic joint, subsequent encounter- Primary [facility] Diagnosis Actinic keratosis- Primary SK (seborrheic keratosis) Other seborrheic keratosis Inflamed seborrheic keratosis Skin tenderness Disturbance of skin sensation Xerosis cutis Other specified disease of sebaceous glands [facility]* Diagnosis Hx of total hip arthroplasty, right- Primary [facility] Diagnosis Cellulitis- Primary Cellulitis and [...] [facility] noteNo assessment information [facility]St[facility] Work Phone: Evaluation note* Diagnosis Bilateral carotid artery stenosis- Primary Occlusion and stenosis of carotid artery without mention of cerebral infarction [facility]* Diagnosis Hx of total hip arthroplasty, right- Primary [facility]* Diagnosis Chronic obstructive pulmonary disease, unspecified [...] peripheral vascular disease [facility]* Diagnosis Critical lower limb ischemia (HCC)- Primary Unspecified circulatory system disorder [facility]* Diagnosis Hx of total hip arthroplasty, right- Primary [facility] Diagnosis Phantom limb pain (CMS/HCC)- [...] unspecified type- Primary [facility] Diagnosis Phantom limb pain (CMS/HCC)- [...] spondylosis without myelopathy [facility]* Diagnosis Ischemic foot- Primary PAD (peripheral artery disease) (HCC) Unspecified peripheral vascular disease Critical lower limb ischemia (HCC) Unspecified circulatory system disorder Critical lower limb ischemia (HCC) Unspecified circulatory system disorder Coronary artery disease involving coronary bypass graft of [place] heart without angina pectoris Hypercholesteremia Pure hypercholesterolemia [...] peripheral vascular disease PVD (peripheral vascular disease) ([facility])- Primary Unspecified peripheral vascular disease [facility] Diagnosis Phantom limb pain (CMS/HCC)- [...] spondylosis without myelopathy [facility]* Diagnosis Community acquired pneumonia of left lung, unspecified part of lung- Primary COPD exacerbation (HCC) Obstructive chronic bronchitis with exacerbation documented in this encounter [employer] Phone: evaluation note* Diagnosis Community acquired pneumonia of left lung, unspecified part of lung- Primary COPD exacerbation (HCC) Obstructive chronic bronchitis with exacerbation documented in this encounter [employer] Phone: evaluation note* Diagnosis Phantom limb pain [...] Phantom limb (syndrome) [facility]* Diagnosis Medicare annual wellness visit, [...] of cardiac valve disease unspecified Atherosclerosis of [place] coronary artery of [place] heart without angina pectoris (CMS/HCC) Benign essential [...] amputation of left foot (CMS/HCC) Atherosclerosis of [place] arteries of extremities with rest pain, unspecified extremity (CMS/HCC) Pulmonary hypertension, unspecified (CMS/HCC) [facility]* Diagnosis Chest pain in adult- Primary Lumbosacral spondylosis 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) Seasonal allergic rhinitis due to pollen documented in this encounter [facility]* Diagnosis Phantom limb pain (CMS/HCC)- [...] spondylosis without myelopathy [facility]* Diagnosis Phantom limb pain [...] Chronic diastolic (congestive) heart failure Atherosclerosis of [place] arteries of extremities with rest pain, unspecified [...] disease (HCC) (CMS/HCC) documented in this encounter [facility]* Diagnosis Phantom limb pain (CMS/HCC)- [...] Chronic diastolic (congestive) heart failure Atherosclerosis of [place] arteries of extremities with rest pain, unspecified [...] spondylosis without myelopathy documented [facility]* Diagnosis Phantom limb pain [...] Chronic diastolic (congestive) heart failure Atherosclerosis of [place] arteries of extremities with rest pain, unspecified [...] spondylosis without myelopathy [facility]* Diagnosis Phantom limb pain [...] Chronic diastolic (congestive) heart failure Atherosclerosis of [place] arteries of extremities with rest pain, unspecified [...] diastolic (congestive) heart failure (HCC) Atherosclerosis of [place] arteries of extremities with rest pain, unspecified [...] spondylosis without myelopathy [facility]* Diagnosis Ischemic foot- Primary PAD (peripheral artery disease) (HCC) Unspecified peripheral vascular disease Critical lower limb ischemia (HCC) Unspecified circulatory system disorder Critical lower limb ischemia (HCC) Unspecified circulatory system disorder Coronary artery disease involving coronary bypass graft of [place] heart without angina pectoris Hypercholesteremia Pure hypercholesterolemia [...] peripheral vascular disease [facility]* Diagnosis Ischemic foot- Primary PAD (peripheral artery disease) (HCC) Unspecified peripheral vascular disease Critical lower limb ischemia (HCC) Unspecified circulatory system disorder Critical lower limb ischemia (HCC) Unspecified circulatory system disorder Coronary artery disease involving coronary bypass graft of [place] heart without angina pectoris Hypercholesteremia Pure hypercholesterolemia Class 1 obesity with body mass index (BMI) of 31.0 to 31.9 in adult Community acquired pneumonia of left lower lobe of lung- Primary Community acquired pneumonia of left lower lobe of lung Elevated troponin Other abnormal blood chemistry Peripheral edema Edema Hematoma of arm, left, initial encounter PAD (peripheral artery disease) ([facility]) Unspecified peripheral vascular disease Acute pain of right lower extremity- Primary [facility] [place] [facility]* Diagnosis Ischemic foot- Primary PAD (peripheral artery disease) ([facility]) Unspecified peripheral vascular disease Critical lower limb ischemia ([facility]) Unspecified circulatory system disorder Hypercholesteremia Pure hypercholesterolemia Class 1 obesity with body mass index (BMI) of 31.0 to 31.9 in adult Community acquired pneumonia of left lower lobe of lung- Primary Community acquired pneumonia of left lower lobe of lung Elevated troponin Other abnormal blood chemistry Peripheral edema Edema Hematoma of arm, left, initial encounter PAD (peripheral artery disease) ([facility])- Primary Unspecified peripheral vascular disease Claudication Unspecified peripheral vascular disease Right leg pain Pain in soft tissues of limb Peripheral artery disease PAD (peripheral artery disease) ([facility]) Unspecified peripheral vascular disease Carotid stenosis, asymptomatic, bilateral Posterior tibial tendinitis of right leg Hematoma of arm, left, initial encounter Community acquired pneumonia of left lower lobe of lung Pulmonary nodule Other diseases of lung, not elsewhere classified Gangrene of left foot ([facility]) Acute pain of right lower extremity Essential hypertension Unspecified essential hypertension Hypercholesteremia Pure hypercholesterolemia Coronary artery disease involving coronary bypass graft of [place] heart without angina pectoris Critical lower limb ischemia ([facility]) Unspecified circulatory system disorder Critical lower limb ischemia ([facility]) Unspecified circulatory system disorder Coronary artery disease involving coronary bypass graft of [place] heart without angina pectoris Carotid stenosis, asymptomatic, bilateral documented [facility] [place] [facility]* Diagnosis Phantom limb pain ([facility])- Primary Phantom limb (syndrome) Lumbosacral spondylosis without [...] diastolic (congestive) heart failure (HCC) Atherosclerosis of [place] arteries of extremities with rest pain, unspecified [...] prostate Urinary hesitancy documented in this encounter [facility]* Diagnosis Ischemic foot- Primary PAD [...] artery disease involving coronary bypass graft of [place] heart without angina pectoris Critical lower limb ischemia (HCC) Unspecified circulatory system disorder Critical lower limb ischemia (HCC) Unspecified circulatory system disorder Coronary artery disease involving coronary bypass graft of [place] heart without angina pectoris Carotid stenosis, asymptomatic, bilateral Critical lower limb ischemia (HCC)- Primary Unspecified circulatory system disorder documented in this encounter [facility] note* Diagnosis Phantom limb pain (HCC)- Primary [...] diastolic (congestive) heart failure (HCC) Atherosclerosis of [place] arteries of extremities with rest pain, unspecified [...] layer exposed (HCC) [facility]* Diagnosis Phantom limb pain [...] diastolic (congestive) heart failure (HCC) Atherosclerosis of [place] arteries of extremities with rest pain, unspecified [...] unspecified type (HCC) documented [facility]* Diagnosis Phantom limb pain [...] diastolic (congestive) heart failure (HCC) Atherosclerosis of [place] arteries of extremities with rest pain, unspecified [...] vomiting type- Primary [facility] Diagnosis Ischemic foot- Primary [...] artery disease involving coronary bypass graft of [place] heart without angina pectoris Critical lower limb ischemia (HCC) Unspecified circulatory system disorder Critical lower limb ischemia (HCC) Unspecified circulatory system disorder Coronary artery disease involving coronary bypass graft of [place] heart without angina pectoris Carotid stenosis, asymptomatic, bilateral Critical lower limb ischemia (HCC)- Primary Unspecified circulatory system disorder [facility]* Diagnosis Phantom limb pain (HCC)- Primary [...] diastolic (congestive) heart failure (HCC) Atherosclerosis of [place] arteries of extremities with rest pain, unspecified [...] unspecified location- Primary documented in this encounter [facility]* Diagnosis Phantom limb pain (HCC)- [...] diastolic (congestive) heart failure (HCC) Atherosclerosis of [place] arteries of extremities with rest pain, unspecified [...] diastolic (congestive) heart failure (HCC) Atherosclerosis of [place] arteries of extremities with rest pain, unspecified [...] Abnormal chest sounds documented [facility]* Diagnosis Claudication Peripheral vascular [...] acute or chronic [facility] Diagnosis Claudication Peripheral vascular [...] acute or chronic [facility]* Diagnosis Phantom limb pain (HCC)- Primary [...] diastolic (congestive) heart failure (HCC) Atherosclerosis of [place] arteries of extremities with rest pain, unspecified [...] bronchitis with exacerbation documented [facility]* Diagnosis Phantom limb pain [...] diastolic (congestive) heart failure (HCC) Atherosclerosis of [place] arteries of extremities with rest pain, unspecified [...] of lung- Primary documented in this encounter [facility]* Diagnosis Phantom limb pain (HCC)- [...] diastolic (congestive) heart failure (HCC) Atherosclerosis of [place] arteries of extremities with rest pain, unspecified [...] pneumonia (HCC)- Primary [facility] in [facility] encounter [facility] [...] diastolic (congestive) heart failure (HCC) Atherosclerosis of [place] arteries of extremities with rest pain, unspecified [...] peripheral vascular disease [facility]* Diagnosis Ischemic foot- Primary [...] artery disease involving coronary bypass graft of [place] heart without angina pectoris Critical lower limb ischemia (HCC) Unspecified circulatory system disorder Critical lower limb ischemia (HCC) Unspecified circulatory system disorder Coronary artery disease involving coronary bypass graft of [place] heart without angina pectoris Carotid stenosis, asymptomatic, bilateral PVD (peripheral vascular disease)- Primary Unspecified peripheral vascular disease [facility] Diagnosis Phantom limb pain (HCC)- [...] diastolic (congestive) heart failure (HCC) Atherosclerosis of [place] arteries of extremities with rest pain, unspecified [...] left leg and was initially treated in [place]. When he was offered left above-knee amputation he got a second opinion in [place] and had a bypass on his left [...] hip replacementSurgical HistoryLEFT METARSAL AMPUTATIONHospitalization HistorySee Above [facility] Other Hospital Discharge instructions No data available for this section [facility] Hospital Discharge instructions* Attachments The following attachments cannot be sent through Care Everywhere. * Pneumonia ([place]) [facility] Work [facility]: Hospital Discharge instructions* Attachments The following attachments cannot be sent through Care Everywhere. * Pneumonia ([place]) documented in this encounterWAunt Aggie's Foods Work Phone: Hospital Discharge instructions Additional Instructions [...] 24 hours. CALL [name at #] OR [facility] AT [phone]: -If excessive bleeding should occur from the [...] Metformin, PrandiMet, Riomet.] FOLLOW UP/OTHER INSTRUCTIONS [ ][facility] Work Phone: Hospital Discharge instructions Additional Instructions Full code Change dressing daily: *right great toe- allow vashe moistened gauze soak on wound bed for 5 min., wipe free loose debris, rinse with saline, apply Santyl to wound bed, top with 2x2s and secure with conforming [facility] Work Phone: Progress note No data available for this section [facility] reason for referral (narrative)No reason for referral information availableUk Healthcare Work Phone: Reason for visit Narrative* Auth/CertSpecialty Diagnoses / ProceduresReferred By ContactReferred To Contact Diagnoses Bronchitis HemopyVivienne Carr MD [address] [place] [address] Phone: tel: fax: [facility] [address] [place] [address] Referral IDStatReCelina DateExpiration DateVisits RequestedVisits [id number] [facility] Summary Purpose Family History No Family History [...] Code - Unverified10/04/2018 3:40 PMFull Code09/05/2018 3:43 10/04/2018 3:00 PMCode StatusDate ActivatedDate InactivatedCommentsFull Code - Unverified10/08/2018 8:41 AMFull Code - Unverified 10/04/2018 3:40 10/08/2018 8:41 AMFull Code09/05/2018 3:43 10/04/2018 3:00 PMCode [...] and Living Will03/13/2019 10:08 AMLW 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] InactivatedComments03/14/2025 5:44 PM 03/21/2025 8:44 PMTypeDate RecordedPatient RepresentativeExplanationHealthCare Power of Attorney10/08/2018Date ActivatedDate InactivatedComments05/09/2025 4:40 AMDate ActivatedDate MujmdkgcytjPbccyiek89/18/2021 2:40 PM05/09/2025 4:40 AMDate ActivatedDate InactivatedComments09/03/2018 11:29 AM07/15/2021 2:40 PMDate ActivatedDate InactivatedComments09/01/2011 7:48 AM09/04/2011 4:13 PMName RelationshipHealthcare Agent RelationshipCommunicationJudy Ann Bryan Health Care Agent* NameRelationshipHealthcare Agent RelationshipCommunicationJudy Ann Bryan Health Care Agent* Reason for Referral StatusReasonSpecialtyDiagnoses / ProceduresReferred By ContactReferred To [facility] Diagnoses Ischemic foot Critical lower limb ischemia Rojelio Woody MD [address] [place] [address] [address] [place] [address] StatusReasonSpecialtyDiagnoses / ProceduresReferred By ContactReferred To ContactPending ReviewCardiology Diagnoses 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) S/P bypass graft of extremity Procedures US Doppler ankle/brachial index Segmental doppler lower extremity arterial Mohsen Sarabia MD [address] [place] [address] [address] [place] [address] StatusReasonSpecialtyDiagnoses / ProceduresReferred By ContactReferred To ContactPending ReviewCardiology Diagnoses Bilateral carotid artery stenosis Procedures Carotid Duplex Mohsen Sarabia MD [address] [place] [address] [address] [place] [address] StatusReasonSpecialtyDiagnoses / ProceduresReferred By ContactReferred To ContactPending ReviewCardiology Diagnoses 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) S/P bypass graft of extremity Procedures Ultrasound ankle / brachial indices extremity complete Mohsen Sarabia MD [facility] [address] [place] [address] StatusReasonSpecialtyDiagnoses / ProceduresReferred By ContactReferred To ContactClosedRadiology Diagnoses S/P bypass graft of extremity PAD (peripheral artery disease) (HCC) 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) Procedures CT Angiogram Abdominal Aorta With Lower Extremity Mohsen Sarabia MD [address] [place] [address] [address] [place] [address] StatusReasonSpecialtyDiagnoses / ProceduresReferred By ContactReferred To ContactClosedCardiology Diagnoses Bilateral carotid artery stenosis Procedures Carotid Duplex Mohsen Sarabia MD [address] [place] [address] [address] [place] [address] StatusReasonSpecialtyDiagnoses / ProceduresReferred By ContactReferred To ContactClosedCardiology Diagnoses 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) Procedures Ultrasound ankle / brachial indices extremity complete Mohsen Sarabia MD [address] [place] [address] [address] [place] [address] StatusReasonSpecialtyDiagnoses / ProceduresReferred By ContactReferred To ContactPending ReviewCardiology Diagnoses Atherosclerosis of umkumiut artery of left lower extremity with rest pain (HCC) S/P bypass graft of extremity Procedures Ultrasound duplex arterial leg left Mohsen Sarabia MD [address] [place] [address] [address] [place] [address] StatusReasonSpecialtyDiagnoses / ProceduresReferred By ContactReferred To ContactAuthorizedCardiology Diagnoses Bilateral carotid artery stenosis Procedures Carotid Duplex Mohsen Sarabia MD [address] [place] [address] [address] [place] [address] StatusReasonSpecialtyDiagnoses / ProceduresReferred By ContactReferred To ContactAuthorizedCardiology Diagnoses PAD (peripheral artery disease) (HCC) Procedures Ultrasound ankle / brachial indices extremity complete Mohsen Sarabia MD [address] [place] [address] StatusReasonSpecialtyDiagnoses / ProceduresReferred By ContactReferred To ContactAuthorizedCardiology Diagnoses PAD (peripheral artery disease) ([facility]) Procedures Ultrasound duplex arterial leg left Mohsen Sarabia MD [address] [place] [address] SpecialtyDiagnoses / ProceduresReferred By ContactReferred To ContactPhysical Therapy Diagnoses Pain in prosthetic joint, subsequent encounter Dashawn Silvestre MD [address] [place] [address] [facility] [place] [address] Referral IDStatusReasonStart DateExpiration DateVisits RequestedVisits [id number] Request/[id number] / Procedures Referred By ContactReferred To Contact Diagnoses Pain in prosthetic joint, subsequent encounter Procedures XR HIP WITH PELVIS RIGHT Dashawn Silvsetre MD [address] [place] [address] Referral IDStatusReasonStart DateExpiration DateVisits RequestedVisits [id number] Request/[id number] / Procedures Referred By ContactReferred To Contact Diagnoses Hx of total hip arthroplasty, right Procedures XR HIP WITH PELVIS RIGHT Dashawn Silvestre MD [address] [place] [address] Referral IDStatusReasonStart DateExpiration DateVisits RequestedVisits [id number] Request/[id number] / Procedures Referred By ContactReferred To ContactPulmonary Disease / Pulmonology Diagnoses Pulmonary nodule Muna Otto MD [address] [facility] [address] [place] [address] Carson Gallagher MD [address] [place] [address] Referral IDStatusReasonStart DateExpiration DateVisits RequestedVisits [id number] Review Specialty Services Required/Patient's Best Interest /[id number] / ProceduresReferred By ContactReferred To ContactRadiology Diagnoses Pulmonary nodule Procedures CT Chest Without Contrast Angela Guerra MD [address] [place] [address] Referral IDStatusReasonStart DateExpiration DateVisits RequestedVisits [id number] Request/[id number] / Procedures Referred By ContactReferred To ContactCardiology Diagnoses Bilateral carotid artery stenosis Procedures Carotid Duplex Mohsen Sarabia MD [address] [facility] [address] [place] [address] Referral IDStatusReasonStart DateExpiration DateVisits RequestedVisits [id number]/28/20229/357610IivwfhqnpPvuteifwu / Procedures Referred By ContactReferred To Contact Diagnoses Hx of total hip arthroplasty, right Procedures XR HIP WITH PELVIS RIGHT Scar Ortega, COMMUNITY SERVICE OFFICER COORDINATOR-PEOPLESOFT PROGRAMMER [address] [id number] Referral IDStatusReasonStart DateExpiration DateVisits RequestedVisits [id number] Uqujzzn81/220904MdqliujvyOlnyurqpv / Procedures Referred By ContactReferred To ContactRadiology Diagnoses Community acquired pneumonia of left lower lobe of lung Procedures CT Chest Without Contrast Jose Escalona CNP [address] [place] [address] Referral IDStatusReasonStart DateExpiration DateVisits RequestedVisits [id number] Request/[id number] / Procedures Referred By ContactReferred To ContactCardiology Diagnoses PAD (peripheral artery disease) (HCC) Procedures US Duplex Bypass Graft Left Mohsen Kincaid MD [address] [facility] [address] [place] [address] Referral IDStatusReasonStart DateExpiration DateVisits RequestedVisits [id number]/19/20239/122032MtovrlptoEgpkgohlh / Procedures Referred By ContactReferred To ContactCardiology Diagnoses PAD (peripheral artery disease) (HCC) Procedures Ultrasound ankle / brachial indices extremity complete Mohsen Sarabia MD [address] [facility] [address] [place] [address] Referral IDStatusReasonStart DateExpiration DateVisits RequestedVisits [id number]/19/20239/349586Lllkipgw IDStatusReasonStart DateExpiration DateVisits RequestedVisits [id number] Belfhuq15/5/[id number] / ProceduresReferred By ContactReferred To Contact Diagnoses Seasonal allergic rhinitis due to pollen Zoë King PA [address] [facility] [address] [place] [address] Referral IDStatusReasonStart DateExpiration DateVisits RequestedVisits [id number] Review Hospital Course Note CLINICAL SUMMARY Please take this summary document to your follow up appointments. [facility] 11:09 [address] [place]. [address] PATIENT INFORMATION Name: TRISTIN POWELL Hortensia Address: [address] [address] Age: 79 Years Phone: [phone] : 1940 12:00 MRN: [id number] Sex: Male Race: White Ethnicity: Not Hispan/Lat Admitted From: Clinic or [facility] Medical Service: Orthopedic Surgery Nurse Unit/Bed: (TN) 2N 0208-01 Admit Date: 11/28/2019 05:01 PCP: Flash Lovelace MD PHYSICIANS INVOLVED WITH CARE Attending Physicians: Ramana Cason MD - Orthopaedic Surg Admitting Physician: Ramana Cason MD - Orthopaedic Surg Primary Care Physician:Flash Loevlace MD,[facility], - Consults: IWONA Wren - Internal Medicine Problems Active Neck pain PVD (peripheral vascula (more content not included)... Discharge Instructions * Discharge Instr - Other Orders* Catalina Woodson RN - 09/05/2018 4:17 PM EST 09-05-18 PROCEDURE(S) PERFORMED: Ultrasound- guided vascular access Aortogram: Abdominal with runoff-bilateral Peripheral Angiography Lower Extremity Angiogram - Left * Discharge Instr - Wound* Maxine Summesr RN - 09/10/2018 11:36 AM EST Cleanse the foot with soap and water, patting dry. Apply Adaptic guaze over the main wound and 4th toe. Wrap with a Guaze roll. Change every 2 days and PRN * Discharge [facility] - PHARMACY* Lydia Davis CPhT - 09/04/2018 [...] your doctor if you can take an rccl-nwb-aesxold medicine. If you think your pain medicine [...] Log into your personal health record on [email or web address] and enter H742 in the Education box to learn more about Femoral-Tibial Bypass Surgery: What to Expect at Home. Current as of: March 18, 2018 Content Version: 11.9 6098-2320 [employer]. Care instructions adapted under license by your healthcare professional. If you have questions about a medical condition or this instruction, always ask your healthcare professional. [employer] disclaims any warranty or liability for your use of this information. * Attachments The following attachments cannot be sent through Care Everywhere. * Angiogram: General: Post-op ([facility]) in this encounter* Discharge Instr - Other Orders* Kristi Grossman RN - 10/12/2018 6:09 PM EST Printed MAR sent to facility to show last admin times for lovenox and percocet. * Discharge Instr - Care Coordination* Rubi Dominguez LSW - 10/05/2018 6:46 AM EST [facility] P: [phone] F: [phone] * Additional Instructions* Gilbert Guerra DPM - [...] drive, operate heavy machinery, ride motorcycles or [employer] s, drink alcohol, or take other medication [...] through Care Everywhere. * Foot: Amputation: Post-op ([facility]) in this encounter History of Present Illness * Esau Alejandro MD - 09/13/2018 9:03 AM EST VASCULAR SURGERY PROGRESS NOTE 09/13/18 Patient Name: Tristin Powell : 1940 MR #: [id number] Admit Date: 1070905 Assessment and Plan: Tristin Powell is a 78 y.o. male with a PMH of PVD s/p LLE angio with stent placement 08/09, prostatecancer, PVD, CAD, HTN and a PSH of L ankle ORIF and thriple CABG in october 2016 with L saphenous vein harvested who presented to [facility] 09/04/2018 as a transfer from [place] for second opinion regarding left lower extremity [...] today - Discussed with Dr. Sarabia Subjective E. Having persistent foot pain Physical Examination: Vital [...] Final Result Stable chest. No acute disease. [facility] Workstation ID: [id number] Saphenous vein mapping, limited Final Result Cardiac Catheterization Final Result Ultrasound duplex arterial leg left Final Result XR Comparison Import Final Result Us Doppler Ankle/brachial Index Result Date: 09/10/2018 Non-Invasive Vascular Patient: SHERRY Bazan [facility] Rec#: [id number] (Age): 1940(78y) Study Date: 09/10/2018 Room#: 8506 Type: Inpatient Sex: M Reading: [place] Reading: Ben Hahn MD, RPVI Referring: Esau Alejandro her: Andre Madrid RDCS/RVT Procedure Info: [id number] Study Quality: Lower Arterial Doppler: adequate __ [...] Esau Alejandro MD General Surgery PGY-1 Pager [phone] *After 5pm, or on weekends, page [phone]* * Rojelio Woody MD - 09/13/2018 8:52 AM EST [facility] Inpatient Progress Note 09/13/2018 Tristin Powell 1940 [id number] Assessment/Plan: Tristin Powell is a 78 y.o. male with a history of PVD s/p LLE angio with stent placement 08/09, prostate cancer, PVD, CAD, HTN who presented to [facility] 09/04/2018 as a transfer from [place] for second opinion regarding left lower extremity pain and discoloration that was present two days prior to admit there on 08/30/18. On admit his exam was notable for cool mottled left foot. He was admitted for further work up. 1. Critical LLE Ischemia: Underwent LLE Popliteal stent 08/09/18 in [place], discharged on ASA and xarelto. Returned with [...] gabapentin 400 mg Oral Q8H [facility] heparin (porcine) 5,000 Units Subcutaneous Q8H [facility] metoprolol succinate 50 mg Oral Daily naloxegol [...] INR 1.2* 1.2* 1.2* * Jagruti Mooney, STAFF APPRAISER - 09/12/2018 1:57 PM EST Physical Therapy [...] Stand Pivot Transfers: Mod, Two person assist Supervisor Sewing Room: Wheeled walker, 2 people, Gait belt Skilled [...] to facilitate increased strength and progression to [facility] independence of fuctional activity. 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) Comments: planning to provide 24/ assist from [...] 1:41 PM EST Progress Note: [facility] PAIN SERVICE Date: 09/12/2018 Patient name: [...] call with questions -Presented to [facility] 09/04/2018 as a transfer from [place] for second opinion regarding left lower extremity [...] on hospital day 8 as transfer from [place] for second opinion for LLE pain and [...] artery disease involving coronary bypass graft of umkumiut heart without angina pectoris ARTERIOSCLEROSIS OF CORONARY [...] No Discharge Readiness Expected Discharge Date: 09/13/18 [facility] Disposition D/C Disposition: Home Health Care Services Related to Current Admission?: Yes Agency/Destination[facility] Needs : Home health care Met with pt's dtr to discuss dschg plan. They wish to have referral sent to [facility]. Sent order for [facility]HCfor RN, PT, OT. Sent referral to [facility]. Notified [facility] of referral. Updated AVS. * Rojelio Woody MD - 09/12/2018 11:37 AM EST [facility] Inpatient Progress Note 09/12/2018 Tristin Powell 1940 [id number] Assessment/Plan: Tristin Powell is a 78 y.o. male with a history of PVD s/p LLE angio with stent placement 08/09, prostate cancer, PVD, CAD, HTN who presented to [facility] 09/04/2018 as a transfer from [place] for second opinion regarding left lower extremity pain and discoloration that was present two days prior to admit there on 08/30/18. On admit his exam was notable for cool mottled left foot. He was admitted for further work up. 1. Critical LLE Ischemia: Underwent LLE Popliteal stent 08/09/18 in [place], discharged on ASA and xarelto. Returned with [...] 0609/09/18 0746 INR 1.2* 1.2* 1.2* * Viiv Gonzalez, RD - 09/12/2018 10:21 AM EST [...] Estimated Energy Needs Total Energy Estimated Needs: 3400-2719 kcal Method for Estimating Needs: MSJ + 20% Total Protein Estimated Needs: 88-106 g Method for Estimating Needs: 1-1.2 g/kg IBW (BMI 24.9) * Esau Alejandro MD - 09/12/2018 9:17 AM EST VASCULAR SURGERY PROGRESS NOTE 09/12/18 Patient Name: Tristin Powell : 1940 MR #: [id number] Admit Date: 1070905 Assessment and Plan: Tristin Powell is a 78 y.o. male with a PMH of PVD s/p LLE angio with stent placement 08/09, prostatecancer, PVD, CAD, HTN and a PSH of L ankle ORIF and thriple CABG in october 2016 with L saphenous vein harvested who presented to [facility] 09/04/2018 as a transfer from [place] for second opinion regarding left lower extremity [...] for d/c today - Discussed with Dr. Cronell DAVID. Having persistent foot pain Physical Examination: [...] Final Result Stable chest. No acute disease. [facility] Workstation ID: [id number] Saphenous vein mapping, limited Final Result Cardiac Catheterization Final Result Ultrasound duplex arterial leg left Final Result XR Comparison Import Final Result Us Doppler Ankle/brachial Index Result Date: 09/10/2018 Non-Invasive Vascular Patient: SHERRY Bazan [facility] Rec#: [id number] (Age): 1940(78y) Study Date: 09/10/2018 Room#: 8506 Type: Inpatient Sex: M Reading: [place] Reading: Ben Hahn MD, RPVI Referring: Esau Alejandro her: Andre Madrid RDCS/RVT Procedure Info: [id number] Study Quality: Lower Arterial Doppler: adequate __ [...] Esau Alejandro MD General Surgery PGY-1 Pager [phone] *After 5pm, or on weekends, page [phone]* * Maranda Meléndez, PEOPLESOFT PROGRAMMER - 09/11/2018 3:45 PM EST Progress Note: [facility] PAIN SERVICE Date: 09/11/2018 Patient name: [...] call with questions -Presented to [facility] 09/04/2018 as a transfer from [place] for second opinion regarding left lower extremity [...] on hospital day 7 as transfer from [place] for second opinion for LLE pain and [...] artery disease involving coronary bypass graft of umkumiut heart without angina pectoris ARTERIOSCLEROSIS OF CORONARY [...] Woody MD - 09/11/2018 1:53 PM EST [facility] 09/11/2018 Tristin Powell 1940 [id number] Assessment/Plan: Tristin Powell is a 78 y.o. male with a history of PVD s/p LLE angio with stent placement 08/09, prostate cancer, PVD, CAD, HTN who presented to [facility] 09/04/2018 as a transfer from [place] for second opinion regarding left lower extremity pain and discoloration that was present two days prior to admit there on 08/30/18. On admit his exam was notable for cool mottled left foot. He was admitted for further work up. Labs prior to transfer notable for Cr 0.7. 1. Critical LLE Ischemia: s/p LLE angiogram 08/09/18 with popliteal balooning and stent in [place], Discharged on ASA and xarelto. Returned to the [facility] with worsening pain and discoloration of [...] last 7 days Lab Units 09/11/18 0738 09/10/18200609/10/18609 WBC K/mcL 7.28 7.13 7.34 HGB g/dL [...] Name: Tristin Powell : 1940 MR #: [id number] Admit Date: 1070905 Assessment and Plan: Tristin Powell is a 78 y.o. male with a PMH of PVD s/p LLE angio with stent placement 08/09, prostatecancer, PVD, CAD, HTN and a PSH of L ankle ORIF and thriple CABG in october 2016 with L saphenous vein harvested who presented to [facility] 09/04/2018 as a transfer from [place] for second opinion regarding left lower extremity [...] Final Result Stable chest. No acute disease. [facility] Workstation ID: [id number] Saphenous vein mapping, limited Final Result Cardiac Catheterization Final Result Ultrasound duplex arterial leg left Final Result XR Comparison Import Final Result Us Doppler Ankle/brachial Index Result Date: 09/10/2018 Non-Invasive Vascular Patient: SHERRY Bazan [facility] Rec#: [id number] (Age): 1940(78y) Study Date: 09/10/2018 Room#: 8506 Type: Inpatient Sex: M Reading: [place] Reading: Ben Hahn MD, RPVI Referring: Esau Alejandro her: Andre Madrid RDCS/RVShahnaz Procedure Info: [id number] Study Quality: Lower Arterial Doppler: adequate __ [...] Esau Alejandro MD General Surgery PGY-1 Pager [phone] *After 5pm, or on weekends, page [phone]* Associated attestation - Mohsen Sarabia MD - 09/11/2018 5:05 PM EST Patient seen and examined. I have personally reviewed all pertinent labs, radiological studies and records. I have personally examined the patient and agree with resident/CRUDE TESTER/PA assessment and plan. * Flynn Mann DPM - 09/11/2018 8:09 AM EST Patient Name: Tristin Powell MR #: [id number] : 1940 Physicians: Flash Lovelace MD (Family); [...] PLT 246 09/10/2018 No results found for: [id number] results found for: SEDRATE No results found [...] artery disease involving coronary bypass graft of umkumiut heart without angina pectoris ARTERIOSCLEROSIS OF CORONARY [...] with Dr. Mann at [phone] 6th [facility]. Case discussed with Dr. Sarabia. Consider home going antibiotics for coverage of any residual cellulitis. Clinical area of warmth and erythema could be due to reperfusion, but cannot rule out of residual cellulitis as well. Flynn Mann DPM, FACFAS Electronically signed by the above physician 09/11/18 * Ronnie Warren MD - 09/10/2018 12:04 PM EST Progress Note: [facility] PAIN SERVICE Date: 09/10/2018 Patient name: [...] call with questions -Presented to [facility] 09/04/2018 as a transfer from [place] for second opinion regarding left lower extremity [...] on hospital day 6 as transfer from [place] for second opinion for LLE pain and [...] artery disease involving coronary bypass graft of umk[place] heart without angina pectoris ARTERIOSCLEROSIS OF CORONARY [...] Name: Tristin Powell : 1940 MR #: [id number] Admit Date: 1070905 Assessment and Plan: Tristin Powell is a 78 y.o. male with a PMH of PVD s/p LLE angio with stent placement 08/09, prostatecancer, PVD, CAD, HTN and a PSH of L ankle ORIF and thriple CABG in october 2016 with L saphenous vein harvested who presented to [facility] 09/04/2018 as a transfer from [place] for second opinion regarding left lower extremity pain and discoloration Chronic LLE ischemia S/p peroneal femoral bypass 09/07/18 - Regular diet - Rooke boot LLE - ET consult for skin blistering - Pain and N control - PT/OT, OOB, Encourage IS - D/C qureshi today - Discussed with Dr. Cornell RIBEIRO. No new complaints Physical Examination: Vital [...] Final Result Stable chest. No acute disease. [facility] Workstation ID: [id number] Saphenous vein mapping, [...] Esau Alejandro MD General Surgery PGY-1 Pager [phone] *After 5pm, or on weekends, page [phone]* * Vianca Franco DO - 09/10/2018 7:57 AM EST [facility] Inpatient Progress Note 09/10/2018 Tristin Powell 1940 [id number] Assessment/Plan: Tristin Powell is a 78 y.o. male with a history of PVD s/p LLE angio with stent placement 08/09, prostate cancer, PVD, CAD, HTN who presented to [facility] 09/04/2018 as a transfer from [place] for second opinion regarding left lower extremity pain and discoloration that was present two days prior to admit there on 08/30/18. On admit his exam was notable for cool mottled left foot. He was admitted for further work up. Labs prior to transfer notable for Cr 0.7. 1. Critical LLE Ischemia: s/p LLE angiogram 08/09/18 with popliteal balooning and stent in [place], Discharged on ASA and xarelto. Returned to the [facility] with worsening pain and discoloration of [...] Franco DO - 09/09/2018 9:18 AM EST [facility]2018 Tristin Baca/9/1940 [id number] Assessment/Plan: Tristin Powell is a 78 y.o. male with a history of PVD s/p LLE angio with stent placement 08/09, prostate cancer, PVD, CAD, HTN who presented to [facility] 09/04/2018 as a transfer from [place] for second opinion regarding left lower extremity pain and discoloration that was present two days prior to admit there on 08/30/18. On admit his exam was notable for cool mottled left foot. He was admitted for further work up. Labs prior to transfer notable for Cr 0.7. 1. Critical LLE Ischemia: s/p LLE angiogram 08/09/18 with popliteal balooning and stent in [place], Discharged on ASA and xarelto. Returned to the [facility] with worsening pain and discoloration of [...] 7 days Lab Units 09/09/18 0746 09/08/18 02509/07/18 0758 SODIUM mmol/L 135 133* 135 POTASSIUM mmol/L 4.3 4.5 4.0 CHLORIDE mmol/L 99 99 99 BICARB mmol/L 28 23 25 BUN mg/dL 13 8 9 CREATININE mg/dL 0.71* 0.56* 0.69* EGFR mL/min/1.73 m2 89 98 90 GLUCOSE mg/dL 111* 189* 110* CALCIUM mg/dL 8.9 9.0 9.4 Results from last 7 days Lab Units 09/09/18 0746 09/08/18 02509/07/18 0758 INR 1.2* 1.2* 1.2* * Miryam Rincon MD - 09/09/2018 8:40 AM EST VASCULAR SURGERY PROGRESS NOTE 09/09/18 Patient Name: Tristin Powell : 1940 MR #: [id number] Admit Date: 1070905 Assessment and Plan: Tristin Powell is a 78 y.o. male with a PMH of PVD s/p LLE angio with stent placement 08/09, prostatecancer, PVD, CAD, HTN and a PSH of L ankle ORIF and thriple CABG in october 2016 with L saphenous vein harvested who presented to [facility] 09/04/2018 as a transfer from [place] for second opinion regarding left lower extremity [...] Final Result Stable chest. No acute disease. [employer] Workstation ID: [id number] Saphenous vein mapping, limited Final Result Cardiac Catheterization Final Result Ultrasound duplex arterial leg left Final Result XR Comparison Import Final Result Xr Chest 1 View Result Date: 09/07/2018 EXAMINATION: AP CHEST HISTORY: Hypoxia. COMPARISON: 08/01/[address] [facility]. 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 Coronary artery stents are visualized. Minimal linear scarring at the lung bases, unchanged. No pneumothorax. No definite pleural ef fusion no new opacities. Stable chest. No acute disease. [employer] Workstation ID: [id number] Xr Fluoroscopy Time Result Date: 09/08/2018 This is an auto finalized result. Please refer to patient chart for further information. Saphenous Vein Mapping, Limited Result Date: 09/06/2018 Non-Invasive Vascular Patient: SHERRY TRISTIN Hortensia Robert Rec#: [id number] (Age): 1940(78y) Study Date: 09/06/2018 Room#: 3386 Type: Inpatient Sex: M Reading: Manuel Leonard MD, RPVI, RVT Referring: ARISTEO Assembler Body: Tom Jeffers, KIRILL, RVT Procedure Info: [id number] Study Quality: Lower Vein Map: limited Study [...] further information. Miryam Rincon MD PGY-2 Surgery [phone] After 5pm and on Weekends, please page [phone] (Surgery Screen And Cyclone Repairer fashion consultant sales) * Joi Vaughan, RN - 09/08/2018 10:53 [...] pressure offlaoding for now. * Vianca Franco - 09/08/2018 9:38 AM EST [facility] Inpatient Progress Note 09/08/2018 Tristin Powell 1940 [id number] Assessment/Plan: Tristin Powell is a 78 y.o. male with a history of PVD s/p LLE angio with stent placement 08/09, prostate cancer, PVD, CAD, HTN who presented to [facility] 09/04/2018 as a transfer from [place] for second opinion regarding left lower extremity pain and discoloration that was present two days prior to admit there on 08/30/18. On admit his exam was notable for cool mottled left foot. He was admitted for further work up. Labs prior to transfer notable for Cr 0.7. 1. Critical LLE Ischemia: s/p LLE angiogram 08/09/18 with popliteal balooning and stent in [place], Discharged on ASA and xarelto. Returned to the [facility] with worsening pain and discoloration of [...] Name: Tristin Powell : 1940 MR #: [id number] Admit Date: 1070905 Assessment and Plan: Tristin Powell is a 78 y.o. male with a PMH of PVD s/p LLE angio with stent placement 08/09, prostatecancer, PVD, CAD, HTN and a PSH of L ankle ORIF and thriple CABG in october 2016 with L saphenous vein harvested who presented to [facility] 09/04/2018 as a transfer from [place] for second opinion regarding left lower extremity pain and discoloration Chronic LLE ischemia S/p peroneal femoral bypass 09/07/18 - Patient underwent LLE angiogram with popliteal ballooning and stent 08/09/2018 in [place], sent onaspirin and xarelto - Angiography 09/05/18 showed Infrapopliteal Artery Stenosis Left , severe ASPVD with occluded stent.No reasonable endovascular options. - Diet as tolerated, HLIV - Rooke boot LLE - ET consult for skin blistering - Pain and N control - Continue P/O care - Discussed with Dr. Sarabia Subjective EO Physical Examination: Vital Signs: BP 133/62 (BP [...] Final Result Stable chest. No acute disease. [facility] Workstation ID: [id number] Saphenous vein mapping, limited Final Result Cardiac Catheterization Final Result Ultrasound duplex arterial leg left Final Result XR Comparison Import Final Result Cardiac Catheterization Result Date: 09/05/2018 Patient Name: TRISTIN POWELL Date of : 1940 Procedure Date: 09/05/2018 Physician(s): Ben Hahn MD Cath #: [id number] Ref. Physician: PROCEDURE(S) PERFORMED: Ultrasound- guided vascular access Aortogram: Abdominal with runoff-bilateral Peripheral Angiography Lower Extremity Angiogram - Left Clinical History: Prior CABG: Yes Peripheral Arterial Disease: Yes, , with prior peripheral STAFF APPRAISER. Dyslipidemia: Yes Hypertension: Yes Pre-OP Diagnosis/Indication: Deann [...] amputation COMMENTS: No Complications ____ Equipment: Sheath(s) [employer]umen 5F 10CM PINNACLE SHEATH [employer] 6F 45CM .038 FLEXOR CHECKFLO ANSEL1 SHEATH Wire(s) [employer] .035 X 150CM FIXED J WIRE Catheter(s) [employer] & SIGKAT 5F MP TEMPO AQUA CATHETER Other [employer] .035 CXI ANGLED SUPPORT CATHETERS SHER VASCULAR [...] AP CHEST HISTORY: Hypoxia. COMPARISON: 08/01/[address] [facility]. 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 Coronary artery stents are visualized. Minimal linear scarring at the lung bases, unchanged. No pneumothorax. No definite pleural ef fusion no new opacities. Stable chest. No acute disease. [facility] Workstation ID: [id number] Xr Fluoroscopy Time Result Date: 09/08/2018 This is an auto finalized result. Please refer to patient chart for further information. Saphenous Vein Mapping, Limited Result Date: 09/06/2018 Non-Invasive Vascular Patient: SHERRY Bazan Med Rec#: [id number] (Age): 1940(78y) Study Date: 09/06/2018 Room#: 3386 Type: Inpatient Sex: M Reading: Manuel Leonard MD, RPVI, RVT Referring: ARISTEO Assembler Body: Tom Jeffers, KIRILL, RVT Procedure Info: [id number] Study Quality: Lower Vein Map: limited Study [...] Esau Alejandro MD General Surgery PGY-1 Pager [phone] *After 5pm, or on weekends, page [phone]* * Sirisha Doshi, RD - 09/07/2018 2:26 [...] Estimated Energy Needs Total Energy Estimated Needs: 3941-9424 kcal Method for Estimating Needs: MSJ + 20% Total Protein Estimated Needs: 88-106 g Method for Estimating Needs: 1-1.2 g/kg IBW (BMI 24.9) Assessed By: Sirisha Doshi RD, LD * Maranda Meléndez CNP - 09/07/2018 1:15 PM EST Progress Note: [facility] PAIN SERVICE Date: 09/07/2018 Patient name: Tristin Powell Date Of : 1940 Assessment/Plan: Pain of left lower extremity Assessment & Plan -Presented to [facility] 09/04/2018 as a transfer from [place] for second opinion regarding left lower extremity [...] in pain -Reports pain is uncontrolled with FINANCE MGR Dilaudid pump, and pain does not decrease even after he presses his button -Bypass Peroneal femoral, right saphenous vein harvest, completion angiogram on right planned for today (09/07/18) with Dr. Sarabai, still pending -Discontinue IV Dilaudid- pt feels [...] on hospital day 3 as transfer from [place] for second opinion for LLE pain and discoloration. S/p LLE angio with stent placement 08/09/18. HPI: Patient found writhing in bed, holding his left leg; family members at bedside. He is alert and oriented, and appears extremely uncomfortable. Patient states he needs something for his pain now;FINANCE MGR Dilaudid drip still in place. Family asking [...] artery disease involving coronary bypass graft of [place] heart without angina pectoris ARTERIOSCLEROSIS OF CORONARY [...] Franco DO - 09/07/2018 10:15 AM EST [facility] Inpatient Progress Note 09/07/2018 Tristin Hortensia Sherry 1940 [id number] Assessment/Plan: Tristin Powell is a 78 y.o. male with a history of PVD s/p LLE angio with stent placement 08/09, prostate cancer, PVD, CAD, HTN who presented to [facility] 09/04/2018 as a transfer from [place] for second opinion regarding left lower extremity pain and discoloration that was present two days prior to admit there on 08/30. On admit his exam was notable for cool mottled left foot. He was admitted for further work up. Labs prior to transfer notable for Cr 0.7. 1. Critical LLE Ischemia: s/p LLE angio 08/09, Discharged on xeralto. Returned to the [facility] with worsening pain and discoloration of [...] the setting of acute limb ischemia.On dilaudid FINANCE MGR per pain management. 3. Opioid induced constipation: [...] has uncontrolled LLE pain. Currently on Dilaudid FINANCE MGR pump and pt is maxing his dose at 1.5mg q1h. Pt states he has continued pain in LLE. Instructed nursing staff tocontact pain management for updated pain plan/FINANCE MGR titration. Plan for bypass surgery today. Physical [...] Franco DO - 09/06/2018 11:35 AM EST [facility] Inpatient Progress Note 09/06/2018 Tristin Powell 1940 [id number] Assessment/Plan: Tristin Powell is a 78 y.o. male with a history of PVD s/p LLE angio with stent placement 08/09, prostate cancer, PVD, CAD, HTN who presented to [facility] 09/04/2018 as a transfer from [place] for second opinion regarding left lower extremity pain and discoloration that was present two days prior to admit there on 08/30. On admit his exam was notable for cool mottled left foot. He was admitted for further work up. Labs prior to transfer notable for Cr 0.7. 1. Critical LLE Ischemia: s/p LLE angio 08/09, Discharged on xeralto. Returned to the [facility] with worsening pain and discoloration of [...] Diaz CNP - 09/06/2018 7:37 AM EST [facility] Heart & Vascular Cardiology Daily Progress [...] at [facility] in [place], [place]. Ptwas placed on Xarelto and ASA. [...] artery disease involving coronary bypass graft of [place] heart without angina pectoris Assessment & Plan [...] Mirna Mckeon MD 162 mg at 09/05/18 4135 atorvastatin (LIPITOR) tablet 40 mg 40 mg [...] PRN Mirna Mckeon MD 4 mg at 09/05/182204 ondansetron (ZOFRAN-ODT) disintegrating tablet 4 mg 4 mg Oral Q6H PRN Bne Hahn MD 4 mg at 09/05/181904 Or ondansetron (ZOFRAN) injection 4 mg 4 [...] CKTOTAL, CKMB, TROPONINI, TROPONINT Yasmeen Diaz, MSN, CRUDE TESTER-C Nurse Practitioner 09/06/2018 * Vianca Franco DO - 09/05/2018 11:11 AM EST [facility] 09/05/2018 Tristin Powell 1940 [id number] Assessment/Plan: Tristin Powell is a 78 y.o. male with a history of PVD s/p LLE angio with stent placement 08/09, prostate cancer, PVD, CAD, HTN who presented to [facility] 09/04/2018 as a transfer from [place] for second opinion regarding left lower extremity [...] 08/09, Discharged on xeralto. Returned to the [facility] with worsening pain and discoloration of [...] EST Patient Name: Tristin Powell MR #: [id number] : 1940 Physicians: Flash Lovelace MD (Family); No ref. provider found (Referring) History of Present Illness: Tristin Powell is a 78 y.o. male Dictation on: 09/20/2018 5:58 PM by: FLYNN MANN [[id number]] History: The following portions of the patient's [...] None 09/20/2018 2:00 PM Wound Bed Characteristics Black;Yellow;Red;[place] 09/20/2018 2:00 PM Edna-wound Assessment Dry;Ecchymosis 09/20/2018 2:00 PM Treatments Not Applicable 09/20/2018 2:00 PM Hemostasis Not applicable 09/20/2018 2:00 PM Cleansed Sterile saline 09/20/2018 2:00 PM Primary Dressing Betadine;Impregnated gauze 09/20/2018 2:00 PM Secondary Dressing Dry gauze dressing;Gauze roll;Gauze pad 09/20/2018 2:00 PM Compression Dressing Not Applicable 09/20/2018 2:00 PM Dictation on: 09/20/2018 5:59 PM by: FLYNN MANN [[id number]] Assessment and Plan: SNOMED CT(R) 1. Critical lower limb ischemia CRITICAL LOWER LIMB ISCHEMIA Prealbumin Albumin Protein,Total XR Foot Left 3+ Views (Standard) XR Ankle Left 3+ Views (Standard) 2. Gangrene (HCC) GANGRENOUS DISORDER 3. PVD (peripheral vascular disease) (HCC) PERIPHERAL VASCULAR DISEASE 4. Left foot pain PAIN IN LEFT FOOT Dictation on: 09/20/2018 6:00 PM by: FLYNN MANN [[id number]] Flynn Mann DPM, FACFAS Electronically signed by [...] from pt's 09/20/18 clinic visit to pt's [facility] [place]. ADRIENNE previously faxed same on 09/20/18 but now signed by physician. in this encounter* Radha Parker RN - 10/04/2018 4:59 PM EST Patient was admitted to [facility] for surgery. * Flynn Mann DPM - 10/04/2018 4:50 PM EST Patient Name: Tristin Powell MR #: [id number] : 1940 Physicians: Flash Lovelace MD (Family); [...] will admit the patient to [facility] today, and he will receive [...] Canseco MD - 10/12/2018 9:44 AM EST [facility] DAILY PROGRESS NOTE Assessment and Plan 78 y.o. male patient of Flash Lovelace MD with history of PAD, CAD and HTN that presented to [place] with need for left foot partial amputation. [...] Qureshi Catheter: none Disposition Discharge Location: [facility] Estimated Discharge Date: Medically stable [...] 14.5-hour post-dose level Pharmacist: Edwina Browne RPh,PharmD, [facility] Contact Number: Vocera OR pharmacist [...] Independent Transfers Sit to Stand: Contact guard Supervisor Sewing Room: Wheeled walker Skilled Intervention: cont. to reinforce [...] Wheelchair-electric Prior Level of Function Level of [place]: Independent with ADLs and functional transfers, Independent [...] now s/p left midfoot amputation and DEREK (2/11/19). -Patient evaluated at bedside. -Afebrile, labs reviewed. -Empiric IV Vancomycin. -Radiographs reviewed. -[facility] c'sed for medical management. -WBAT to LLE -DVT ppx lovenox. -Patient discussed with Dr. Mann who agrees with assessment and plan. Patient had bypass surgery ofLLE at [place] in August. Pt now s/p left midfoot [...] articulations. Surgical drain present. [employer] Workstation ID: [id number] XR Chest 1 View Final Result 1. [...] PM EST VM from Jose Manuel @ [employer] requesting final Iv atb orders. Return call [...] Sit: Modified independence Sit to Supine: Modified [place] Functional Transfers Sit to Stand: Contact guard [...] Wheelchair-electric Prior Level of Function Level of [place]: Independent with ADLs and functional transfers, Independent [...] 36-hour post-dose level Pharmacist: Edwina Browne RPh,PharmD, [facility] Contact Number: Vocera OR pharmacist * Jeanette Ramirez RN - 10/11/2018 1:03 PM EST Call from daughter Monica Zaidi requesting update on pre-cert and possible transport needs. Advised Monica we do not yet have pre-cert and we plan to notify her of the same once we obtain it. She requests to transport her father to [facility]. She relates they have been transporting him STAFF APPRAISER and are aware of his limited gait and transferring capabilities. Monica plans to arrive here 10/12 after an AM meeting. Plan to contact Monica once pre-cert is obtained # [phone]. * Alice Delvalle, STAFF APPRAISER - 10/11/2018 11:33 AM EST Physical Therapy [...] to Chair: (x 2 for line management) Supervisor Sewing Room: Wheeled walker Skilled Intervention: cued to achieve [...] Wheelchair-electric Prior Level of Function Level of [place]: Independent with ADLs and functional transfers, Independent [...] Canseco MD - 10/11/2018 10:43 AM EST [facility] DAILY PROGRESS NOTE Assessment and Plan 78 y.o. male patient of Flash Lovelace MD with history of PAD, CAD and HTN that presented to [place] with need for left foot partial amputation. [...] Qureshi Catheter: none Disposition Discharge Location: [facility] Estimated Discharge Date: Pending Hgb [...] infection, now s/p left midfoot amputation and DERKE (10/08/18). -Patient evaluated at bedside. -Afebrile, labs reviewed. -Empiric IV Vancomycin. -Radiographs reviewed. -[facility] c'sed for medical management. -WBAT to LLE -DVT ppx lovenox. -Patient discussed with Dr. Mann who agrees with assessment and plan. Patient had bypass surgery ofLLE at [facility] in August. Pt now s/p left midfoot [...] articulations. Surgical drain present. [employer]K/mll Workstation ID: [id number] XR Foot Left 3+ Views (Standard) Final [...] PAD, CAD and HTN that presented to [place] with need for left foot partial amputation. Action: AUDREY met with pt who requests referral to [facility] [place]. SW educated pt on referral/PC process. Pt [...] labs reviewed. -Empiric IV Vancomycin. -Radiographs reviewed. -[facility] c'sed for medical management. -WBAT to LLE -DVT ppx lovenox. -Patient discussed with Dr. Mann who agrees with assessment and plan. Patient had bypass surgery ofLLE at [facility] in August. Pt now s/p left midfoot [...] articulations. Surgical drain present. VK/mll Workstation ID: [id number] XR Foot Left 3+ Views (Standard) Final [...] Canseco MD - 10/10/2018 9:37 AM EST [facility] DAILY PROGRESS NOTE Assessment and Plan 78 y.o. male patient of Flash Lovelace MD with history of PAD, CAD and HTN that presented to [place] with need for left foot partial amputation. [...] Information Primary Caregiver: Self Accompanied by/Relationship: none Jew/Cultural Factors: none Legal Documentation Advance Directives: (none) Resuscitation Status: Resuscitate Resources Financial Resources: Other (Comment)([employer] Medicare insurance confirmed) Community Resources: Other (Comment)(PCP Dr. Lovelace [phone]) Discharge Plan Shared UM/CC and RN Source of Information: Patient Contact Phone Number: emergency contact Amina Zaidi p:[phone] Living Arrangements: Children Support Systems: Children Functional Status: Independent Type of Residence: Private residence Prior to Admission Home Care Services: Yes Type of Current Home Care Services: Home health care Current Agency Name: [facility] Current Home Equipment: Walker, Wheeled walker, Toilet seat land surveyor manager, Tub/Shower chair Insurance Coverage for Prescriptions: [...] Estimated Energy Needs Total Energy Estimated Needs: 4718-2279 kcal Method for Estimating Needs: 25-30 kcal/kg Total Protein Estimated Needs: 95-144 gm Method for Estimating Needs: 1.0-1.2 gm/kg Assessed by: Gaye Carver RD,LD Phone #: [phone] Pager #: [phone] * Stan Canseco MD - 10/09/2018 11:01 AM EST [facility] DAILY PROGRESS NOTE Assessment and Plan 78 y.o. male patient of Flash Lovelace MD with history of PAD, CAD and HTN that presented to [place] with need for left foot partial amputation. [...] Qureshi Catheter: none Disposition Discharge Location: [facility] Estimated Discharge Date: Medically stable to pa home Outpatient Testing: none Subjective Resting comfortably. [...] labs reviewed. -Empiric IV Vancomycin. -Radiographs reviewed. -[facility] c'sed for medical management. -WBAT to LLE -DVT ppx lovenox. -Patient discussed with Dr. Mann who agrees with assessment and plan. Patient had bypass surgery ofLLE at [facility] in August. Pt now s/p left midfoot amputation and DEREK with closed suction drain. Will plan to pull drain today. PT/OT to evaluate, appreciate assistance. May need SNF upon discharge. Further plan per Dr. Lalitha SUBJECTIVE Pt seen and evaluated at bedside. [...] articulations. Surgical drain present. VK/mll Workstation ID: [id number] XR Foot Left 3+ Views (Standard) Final [...] Canseco MD - 10/08/2018 10:45 AM EST [facility] DAILY PROGRESS NOTE Assessment and Plan 78 y.o. male patient of Flash Lovelace MD with history of PAD, CAD and HTN that presented to [place] with need for left foot partial amputation. [...] patient had bypass surgery of LLE at [facility] in August. Pt with some local erythema [...] in this patient's care. Demetrice Lomeli, PharmD, [facility]: ED Pharmacy * Aaron Choi MD - 10/07/2018 11:56 AM EST [facility] DAILY PROGRESS NOTE Assessment and Plan 78 y.o. male patient of Flash Lovelace MD with history of PAD, CAD and HTN that presented to [place] with need for left foot partial amputation. [...] Podiatry Progress Note IMPRESSION & PLAN: Tristin oPwell is a 78 y.o. male with PMHx [...] reviewed: No acute abnormalities or ST gas -[facility] c'sed for medical management and preoperative clearance. -WBAT to LLE -DVT ppx lovenox. -Patient discussed with Dr. Mann who agrees with assessment and plan. Pt with mummification and drygangrene of left forefoot, patient had bypass surgery of LLE at [facility] in August. Pt with some local erythema will monitor response to Abx. Continue daily betadine dressing changes. Plan for OR on Monday (10/08/18) for left midfoot amputation (Open vs. Closed) at 7am. Consent obtained. [facility] consulted for medical management. Patient will require preoperative risk stratification. Appreciate [facility] assistance. Further plan per Dr. Mann SUBJECTIVE [...] is clinically warranted, consider MRI or CT. [facility] Workstation ID: [id number] Echocardiogram complete (Results Pending) * Aaron Choi MD - 10/06/2018 10:50 AM EST [facility] DAILY PROGRESS NOTE Assessment and Plan 78 y.o. male patient of Flash Lovelace MD with history of PAD, CAD and HTN that presented to [place] with need for left foot partial amputation. [...] reviewed: No acute abnormalities or ST gas -[facility] c'sed for medical management and preoperative clearance. -WBAT to LLE -DVT ppx lovenox. -Patient discussed with Dr. Mann who agrees with assessment and plan. Pt with mummification and drygangrene of left forefoot, patient had bypass surgery of LLE at [facility] in August. Pt with some local erythema will monitor response to Abx. Continue daily betadine dressing changes. Plan for OR on Monday (10/08/18) for left midfoot amputation (Open vs. Closed) at 7am. Consent to be obtained. [facility]. Patient will require preoperative risk stratification. [facility] assistance. Further plan per Dr. Mann [...] reviewed: No acute abnormalities or ST gas -[facility] c'sed for medical management and preoperative clearance. -WBAT to LLE -DVT ppx lovenox. -Patient discussed with Dr. Mann who agrees with assessment and plan. Pt with mummification and drygangrene of left forefoot, patient had bypass surgery of LLE at [facility] in August. Pt with some local erythema will monitor response to Abx. Continue daily betadine dressing changes. Plan for OR on Monday (10/08/18) for left midfoot amputation (Open vs. Closed). [facility] consulted for medical management. Patient will require preoperative risk stratification. Appreciate [facility] assistance. Further plan per Dr. Mann SUBJECTIVE [...] further evaluation is clinically warranted, consider MRI. [facility]/NavigatorMDg Workstation ID: [id number] Associated attestation - Flynn [...] EST Patient Name: Tristin Powell MR #: [id number] : 1940 Physicians: Flash Lovelace MD (Family); No ref. provider found (Referring) History of Present Illness: Tristin Powell is a 78 y.o. male Dictation on: 10/18/2018 6:12 PM by: FLYNN MANN [[id number]] History: The following portions of the patient's [...] on: 10/18/2018 6:13 PM by: FLYNN MANN [[id number]] Assessment and Plan: SNOMED CT(R) 1. Gangrene (HCC) GANGRENOUS DISORDER 2. 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 (HCC) HISTORY OF AMPUTATION OF FOOT 3. PVD (peripheral vascular disease) ([facility]) PERIPHERAL VASCULAR DISEASE Dictation on: 10/18/2018 6:14 PM by: FLYNN MANN [[id number]] Flynn Mann DPM, FACFAS Electronically signed by the above physician 10/18/18 * Maia Duvall RN - 10/18/2018 4:16 PM EST Dressing changed by Dr Mann. Betadine, 4x4's, ABD pad, specialist cast padding, splint, rio bandages * Maia Duvall RN - 10/18/2018 3:39 PM EST in this encounter* Mine Lew LISW - 10/19/2018 8:38 AM EST Pt was seen in clinic 10/18/18. [facility] fax[facility] signed d/c orders/instructions to pt's [facility], [facility]. in this encounter* Mine Lew LISW - 10/26/2018 9:19 AM EST Pt was seen in wound clinic 10/25/18. [facility] fax[facility] signed orders/instructions to pt's [facility], [facility]. in this encounter* Radha Parker RN - 10/31/2018 4:45 PM EST Opened in error. in this encounter* Eugene Barnett MD - 12/17/2018 9:57 PM EDT [facility] [address] [place] [address] [place] [address] FAX [phone] Tristin Powell 1940 male MD Flash Peña MD [phone] Chief Complaint Patient presents with Cerumen Impaction [...] MIDFOOT AMPUTATION; Surgeon: Flynn Mann DPM; Location: [facility] OR; Service: Podiatry ANKLE SURGERY Left BYPASS PERONEAL FEMORAL Right 09/07/2018 Procedure: BYPASS PERONEAL FEMORAL, RIGHT SAPHENOUS VEIN HARVEST, COMPLETION ANGIOGRAM; Surgeon: Mohsen Sarabia MD; Location: [facility] OR; Service: Cardiovascular CARDIAC CATHETERIZATION Left 09/05/2018 Procedure: Angio Lower Extremity; Surgeon: Ben Hahn MD; Location: [facility] INSPECTOR TE[facility] SORTER; Service: Cardiovascular CARDIAC SURGERY 2017 triple bypass [...] MD documented in this encounter* Rose Rosales, PEOPLESOFT PROGRAMMER - 10/09/2019 5:07 PM EST VASCULAR SURGERY CONSULT NOTE Patient Name: Tristin Powell Admit Date: MR #: [id number] : 1940 Assessment and Plan: cta with [...] MIDFOOT AMPUTATION; Surgeon: Flynn Mann DPM; Location: [facility] OR; Service: Podiatry ANKLE SURGERY Left BYPASS PERONEAL FEMORAL Right 09/07/2018 Procedure: BYPASS PERONEAL FEMORAL, RIGHT SAPHENOUS VEIN HARVEST, COMPLETION ANGIOGRAM; Surgeon: Mohsen Sarabia MD; Location: [facility] OR; Service: Cardiovascular CARDIAC CATHETERIZATION Left 09/05/2018 Procedure: Angio Lower Extremity; Surgeon: Ben Hahn MD; Location: [facility] INS[facility]OR TE[facility] SORTER; Service: Cardiovascular CARDIAC SURGERY 2017 triple bypass [...] file Gets together: Not on file Attends restoration service: Not on file Active member of [...] Instructions Prior to Surgery LOLA: Printed on:10/09/19 7178 Medication Information Take last dose on Take [...] the diagnosis & follow-upneeds. Rose Rosales CNP [phone] documented in this encounter* Flynn Mann DPM - 10/25/2018 6:03 PM EST Patient Name: Tirstin Powell MR #: [id number] : 1940 Physicians: Flash Lovelace MD (Family); No ref. provider found (Referring) History of Present Illness: Tristin Powell is a 78 y.o. male Dictation on: 10/25/2018 6:03 PM by: FLYNN MANN [[id number]] History: The following portions of the patient's [...] on: 10/25/2018 6:04 PM by: FLYNN MANN [[id number]] Assessment and Plan: SNOMED CT(R) 1. 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 Gangrene (HCC) GANGRENOUS DISORDER 3. PVD (peripheral vascular disease) (HCC) PERIPHERAL VASCULAR DISEASE 4. 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 Lower extremity edema EDEMA OF LOWER EXTREMITY Dictation on: 10/25/2018 6:04 PM by: FLYNN MANN [[id number]] Flynn Mann DPM, FACFAS Electronically signed by the above physician 10/25/18 * Lori Velez RN - 10/25/2018 3:46 PM EST in this encounter* Mine Lew LISW - 09/21/2018 8:27 AM EST Pt was seen in clinic 09/20/18. [facility] signed d/c orders/instructions to pt's [facility], [facility]. in this encounter* Mohsen Sarabia MD - [...] not included)... 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 Posterior cervical fusion. Dr. [...] Ischemic foot- Primary PAD (peripheral artery disease) ([facility]) Unspecified peripheral vascular disease Critical lower limb ischemia Unspecified circulatory system disorder Coronary artery disease involving coronary bypass graft of umkumiut heart without angina pectoris Hypercholesteremia Pure hypercholesterolemia Essential hypertension Unspecified essential hypertension Class 1 obesity with body mass index (BMI) of 31.0 to 31.9 in adult Pain of left lower extremity Diagnosis Critical lower limb ischemia- Primary Unspecified circulatory system disorder Gangrene (HCC) Gangrene PVD (peripheral vascular disease) ([facility]) Unspecified peripheral vascular disease Left foot pain Pain in soft tissues of limb Diagnosis Critical lower limb ischemia Unspecified circulatory system disorder Diagnosis Gangrene (HCC)- Primary Gangrene PVD (peripheral vascular disease) ([facility]) Unspecified peripheral vascular disease Left foot pain Pain in soft tissues of limb Critical lower limb ischemia Unspecified circulatory system disorder Ulcer of toe of left foot, with necrosis of bone ([facility]) Diagnosis Acute post-operative pain- Primary Gangrene of left foot ([facility]) Diagnosis Gangrene (HCC)- Primary Gangrene 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 (HCC) PVD (peripheral vascular disease) ([facility]) Unspecified peripheral vascular disease Lower extremity edema Edema 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, left Diagnosis 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 ([facility]) S/P bypass graft of extremity Diagnosis Referred otalgia of right ear- Primary Bilateral temporomandibular joint pain Diagnosis Bilateral carotid artery stenosis Occlusion and stenosis of carotid artery without mention of cerebral infarction Diagnosis 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 ([facility]) S/P bypass graft of extremity Diagnosis 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 ([facility]) S/P bypass graft of extremity Diagnosis Pain of left lower extremity Diagnosis S/P bypass graft of extremity PAD (peripheral artery disease) ([facility]) Unspecified peripheral vascular disease 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 ([facility]) Diagnosis Bilateral carotid artery stenosis Occlusion and stenosis of carotid artery without mention of cerebral infarction Diagnosis 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 ([facility]) Diagnosis 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 ([facility])- Primary Gangrene ([facility]) Gangrene PVD (peripheral vascular disease) ([facility]) Unspecified peripheral vascular disease 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, left Lower extremity edema Edema Diagnosis Gangrene of left foot ([facility])- Primary Critical lower limb ischemia Unspecified circulatory system disorder Diagnosis 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 Signs/Symptoms of infection: If you have any fever, chills, nausea, vomiting or increased odor, drainage, pain or redness to thewound, call [facility] at [phone]. If after hours, contactyour family physician or [...] regarding your home care instructions please contact [facility] at [phone]. If after hours, contact your primary care physician or go to the hospital emergency room. Please call 24 hours prior to your scheduled appointment if you need to cancel or reschedule. in this encounter* Patient Instructions* Radha Parker RN - 10/04/2018 1:14 PM EST You are being admitted to [facility] for surgery possibly Monday. Go to [facility]. in this encounter* Patient Instructions* Maia [...] the bleeding does not stop, call [facility] at [phone] or go to the Emergency Room. Signs/Symptoms of infection: If you have any fever, chills, nausea, vomiting or increased odor, drainage, pain or redness to thewound, call [facility] at [phone]. If after hours, contactyour family physician or [...] regarding your home care instructions please contact [facility] at [phone]. If after hours, contact your primary care [...] bleeding does not stop, call [facility] at [phone] or go to the Emergency Room. Signs/Symptoms of infection: If you have any fever, chills, nausea, vomiting or increased odor, drainage, pain or redness to thewound, call [facility] at [phone]. If after hours, contactyour family physician or [...] home care instructions please contact [facility] [place] at [phone]. If after hours, contact your primary care [...] for spinal fusion. SURGEON: Ramana Cason MD LOCAL COMPANY TRUCK DRIVER: LEONARDA Selby ANESTHESIA: General. SPECIMENS: There were no specimens removed. COMPLICA (more content not included)... Note CLINICAL SUMMARY Please take this summary document to your follow up appointments. [facility] 11/29/19 11:09 [address] [place]. [address] PATIENT INFORMATION Name: SHERRY TRISTIN Hortensia Address: [address] [address] Age: 79 Years Phone: [phone] : 1940 12:00 MRN: [id number] Sex: Male Race: White Ethnicity: Not Hispan/Lat Admitted From: Clinic or [facility] Medical Service: Orthopedic Surgery [...] MD DATE OF SERVICE: 11/12/2019 NAME: TRISTIN POWELLNeftali DATE OF : 1940 AMENDED TO CORRECT [...] not included)... Note Patient: TRISTIN POWELL MRN: [id number] Age: 79 years Sex: Male : 1940 Associated Diagnoses: None Author: Jose C Davis MD Assessment Assessment Diagnosis: Osteoarthritis (CJN39-WE M47.892, Working, Medical). Posterior cervical fusion. Dr. [...] 11:20am Acute respiratory failure with hypoxia S eptemb2024 11:19am Chest pain May 04, 2025 11:19am [...] section and content) DATE CREATED AUTHOR 02/16/2018 [facility] DATE CREATED AUTHOR AUTHOR'S ORGANIZ ATION 09/07/2018 [facility] DATE CREATED AUTHOR AUTHOR'S ORGANIZ ATION 11/01/2018 [facility] DATE CREATED AUTHOR AUTHOR'S ORGANIZ ATION 11/02/2018 [facility] DATE CREATED AUTHOR AUTHOR'S ORGANIZ ATION 11/12/2018 [facility] DATE CREATED AUTHOR AUTHOR'S ORGANIZ ATION 05/28/2020 [facility] DATE CREATED AUTHOR AUTHOR'S ORGANIZ ATION 07/21/2021 [facility] DATE CREATED AUTHOR AUTHOR'S ORGANIZ ATION 01/02/2022 [facility] DATE CREATED AUTHOR AUTHOR'S ORGANIZ ATION 10/29/2022 [facility] Exercise Science Instructor DATE CREATED AUTHOR AUTHOR'S ORGANIZ ATION 11/01/2022 [facility] DATE CREATED AUTHOR AUTHOR'S ORGANIZ ATION 12/08/2022 [facility] DATE CREATED AUTHOR AUTHOR'S ORGANIZ ATION 08/15/2023 [facility] DATE CREATED AUTHOR AUTHOR'S ORGANIZ ATION 12/31/2023 [facility] DATE CREATED AUTHOR AUTHOR'S ORGANIZ ATION 05/15/2024 [facility] DATE CREATED AUTHOR AUTHOR'S ORGANIZ ATION 12/22/2024 [facility] DATE CREATED AUTHOR AUTHOR'S ORGANIZ ATION 04/25/2025 [facility] DATE CREATED AUTHOR AUTHOR'S ORGANIZ ATION 05/09/2025 [facility] DATE CREATED AUTHOR AUTHOR'S ORGANIZ ATION 06/02/2025 [facility] DATE CREATED AUTHOR AUTHOR'S ORGANIZ ATION 06/10/2025 [facility] DATE CREATED AUTHOR AUTHOR'S ORGANIZ ATION 06/11/2025 [facility] DATE CREATED AUTHOR AUTHOR'S ORGANIZ ATION 06/19/2025 [facility] DATE CREATED AUTHOR AUTHOR'S ORGANIZ ATION 06/25/2025 [facility] Reason for Visit (unrecogniz ed section and content) ReasonCommentsBlood ClotStatusReasonSpecialtyDiagnoses / ProceduresReferred By ContactReferred To Contact Diagnoses LLE claudication Procedures Angio Lower Extremity ReasonCommentsWound CheckStatusReasonSpecialtyDiagnoses / ProceduresReferred By ContactReferred To Contact Diagnoses left foot gangrenous osteomyolitis StatusReasonSpecialtyDiagnoses / ProceduresReferred By ContactReferred To ContactPending ReviewCardiology Diagnoses 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) S/P bypass graft of extremity Procedures US Doppler ankle/brachial index Segmental doppler lower extremity arterial Mohsen Sarabia MD [address] [facility] [address] [place] [address] ReasonCommentsCerumen ImpactionStatusReasonSpecialtyDiagnoses / Procedures Referred By ContactReferred To ContactPending ReviewCardiology Diagnoses Bilateral carotid artery stenosis Procedures Carotid Duplex Mohsen Sarabia MD [address] [place] [address] [address] [place] [address] ReasonCommentsFollow-upS/P PERONEAL- FEMORAL BYPASS 09/07/18StatusReasonSpecialty Diagnoses / ProceduresReferred By ContactReferred To ContactClosedRadiology Diagnoses S/P bypass graft of extremity PAD (peripheral artery disease) (HCC) 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) Procedures CT Angiogram Abdominal Aorta With Lower Extremity Mohsen Sarabia MD [address] [place] [address] [address] [place] [address] StatusReasonSpecialtyDiagnoses / ProceduresReferred By ContactReferred To ContactClosedCardiology Diagnoses Bilateral carotid artery stenosis Procedures Carotid Duplex Mohsen Sarabia MD [address] [place] [address] [address] [place] [address] StatusReasonSpecialtyDiagnoses / ProceduresReferred By ContactReferred To ContactClosedCardiology Diagnoses 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 bypass graft 09/09ReasonCommentsFollow-up6mo per-fem bypass graftStatusReasonSpecialtyDiagnoses / ProceduresReferred By ContactReferred To ContactPending ReviewCardiology Diagnoses Atherosclerosis of umkumiut artery of left lower extremity with rest pain (HCC) S/P bypass graft of extremity Procedures Ultrasound duplex arterial leg left Mohsen Sarabia MD [address] [facility] [address] [place] [address] ReasonCommentsPost Op VisitSpecialtyDiagnoses / ProceduresReferred By Contact Referred To Contact Diagnoses Pain in prosthetic joint, subsequent encounter Procedures XR HIP WITH PELVIS RIGHT Dashawn Silvestre MD [address] [id number] Referral IDStatusReasonStart DateExpiration DateVisits RequestedVisits [id number] Request/[id number] [place] SpecialtyDiagnoses / ProceduresReferred By ContactReferred To Contact Diagnoses Hx of total hip arthroplasty, right Procedures XR HIP WITH PELVIS RIGHT Dashawn Silvestre MD [address] [place], [place] [id number] Referral IDStatusReasonStart DateExpiration DateVisits RequestedVisits [id number] Request/[id number]yev UpdateReasonCommentsLeg SwellingLeg PainNauseaSpecialtyDiagnoses / Procedures Referred By ContactReferred To Contact Diagnoses Cellulitis Referral IDStatusReasonStart DateExpiration DateVisits RequestedVisits [id number]r nodule and CT f/uSpecialtyDiagnoses / ProceduresReferred By ContactReferred To ContactPulmonary Disease / Pulmonology Diagnoses Pulmonary nodule Fam, Muna Bhatti MD [address] [facility] [place] iT[employer] [facility] [address] [place] [address] Carson Gallagher MD [facility] Estuardo Best [address] [address] Referral IDStatusReasonStart DateExpiration DateVisits RequestedVisits [id number] Review Specialty Services Required/Patient's Best Interest /[id number] SwellingSpecialtyDiagnoses / Procedures Referred By ContactReferred To Contact Diagnoses PAD (peripheral artery disease) (HCC) Referral IDStatusReasonSthugo DateExpiration DateVisits RequestedVisits [id number] / ProceduresReferred By ContactReferred To Contact Diagnoses Hx of total hip arthroplasty, right Procedures XR HIP WITH PELVIS RIGHT MelidaScar, COMMUNITY SERVICE OFFICER COORDINATOR-PEOPLESOFT PROGRAMMER [address] [place] [address] Referral IDStatusReasonVirgilina DateExpiration DateVisits RequestedVisits [id number] Jttukwv13/[id number]-loXnnujj Onset DateCommentsMedication Ukzybw0608/30/2022ReasonCommentsFoot InjuryShortness of BreathSpecialtyDiagnoses / ProceduresReferred By ContactReferred To Contact Diagnoses Peripheral edema Elevated troponin Community acquired pneumonia of left lower lobe of lung Referral IDStatusReasonVirgilina DateExpiration DateVisits RequestedVisits [id number]-pmNNP-JWHWAFMLPWRI-U/P LT FEM-PERONEAL BYPASS 09/07/18, (YAMILE AND DUPLEX BYPASS GRAFT PRIOR TODAY). Patient complains of bilateral leg pain.Referral IDStatusReasonVirgilina DateExpiration DateVisits RequestedVisits [id number] Iyffozp21/000799SlpzsbNsoow DateCommentsMed Gplmuc8908/06/2024easonCommentsCoughShortness of BreathEmesis FeverReasonCommentsHypertensionReasonCommentsMed RefillCalmoheptadine, Zolpidem ReasonCommentsMed RefillOxycodoneReasonOnset DateCommentsMed Iuvwxp8510/18/2024 ReasonOnset DateCommentsMed Fewcyr1811/26/2024ReasonOnset DateCommentsMed Refill 01/02/2025ReasonCommentsFollow-upPain and R Toe color Change,S/P Peroneal Femoral Bypass Graft 09/07/2018ReasonCommentsLeg PainSpecialtyDiagnoses / ProceduresReferred By ContactReferred To Contact Diagnoses Claudication Right leg pain PAD (peripheral artery disease) (HCC) Peripheral artery disease Referral IDStatusReasonStart DateExpiration DateVisits RequestedVisits [id number] Rpejnq-ldVygvlvTwqytdrwXprgdv-xjIU - WOUND CHECK - s/p R FEM-TIB BYPASS, 03/17 - APPT PER VAN ZELAYAReasonCommentsFoot UlcerReasonCommentsWound CheckPOST-OP - FU - WOUND CHECK - S/P R FEM-TIB BYPASS, 03/17 - BLE DUPLEX GRAFT, YAMILE'S PRIOR APPT TODAY - APPT PER VAN BOXReasonOnschris DateCommentsMedication Ocomzdot45/02/2025Has a terrible cold and runny nose wanted to know if you could zuly in a z-pack for him.ReasonCommentsMed Refill ReasonCommentsHospital Follow-up05/09 to 05/13 due to coughing bloodReasonOnset DateCommentsMed Rqyumc8705/29/2025ReasonMissouri Rehabilitation CenterMedicare Annual Wellness Visit Subsequent Ben Jiang MD - 09/07/2018 3:18 PM EST H&P Notes (unrecognized sect ion and content) INTERVAL HISTORY AND PHYSICAL Patient Name: Tristin Powell Admit Date: [id number] MR #: [id number] : 1940 The H&P has been reviewed and the patient has been examined. I concur with the findings of the H&P. There are no significant changes. It is appropriate to proceed with the planned procedure. Ben Jiang MD 09/07/2018 3:18 PM * Miryam Rincon MD - 09/06/2018 9:17 AM EST VASCULAR SURGERY CONSULT NOTE 09/06/18 Patient Name: Tristin Powell : 1940 MR #: [id number] Admit Date: [id number] Nicolas Addendum As below, 78 y.o. male with a h/o PAD, HTN, HLD, CAD s/p cardiac stent (x7, 9768-7945), CABG (x3vv,2017; L [facility]), L ankle ORIF who p/w acute on chronic critical limb ischemia and claudication. Patient states he has been having claudication symptoms in bilateral lower extremities for the past 2-3 years. Patient states that although he has been active the past several months, his symptoms have progressively worsened. In June, the patient visited a suit attendant to evaluate his left foot, in which [...] Dr. Sarabia. 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 male with a PMH of PVD s/p LLE angio with stent placement 08/09, prostatecancer, PVD, CAD, HTN and a PSH of L ankle ORIF and thriple CABG in october 2016 with L saphenous vein harvested who presented to [facility] 09/04/2018 as a transfer from [place] for second opinion regarding left lower extremity pain and discoloration Chronic LLE ischemia - Patient underwent LLE angiogram with popliteal ballooning and stent 08/09/2018 in [place], sent onaspirin and xarelto - Angiography 09/05/18 [...] prostate cancer presents as a transfer from [place] for concerns for left lower extremity pain and discoloration that has progressivley worsened. He has had pain and claudication symptoms for years which prompted him to to be seen 08/09 were he had ballooning and stent placement to left popliteal. He represented 1/3 with increased LLE pain that was never really helped by the stent. Pain doesn't allow him sleep. While at the [facility] he was planned to undego intervention the day of transfer but requested [facility] transfer for second opinion. Review of [...] heparin infusion (weight based dosing) Stopped (09/05/18 5915) sodium chloride 0.9 % 20 mL/hr (09/06/18 [...] 09/05/2018 Physician(s): Ben Hahn MD Cath #: [id number] Ref. Physician: PROCEDURE(S) PERFORMED: Ultrasound- guided vascular access Aortogram: Abdominal with runoff-bilateral Peripheral Angiography Lower Extremity Angiogram - Left Clinical History: Prior CABG: Yes Peripheral Arterial Disease: Yes, , with prior peripheral STAFF APPRAISER. Dyslipidemia: Yes Hypertension: Yes Pre-OP Diagnosis/Indication: Deann [...] amputation COMMENTS: No Complications ____ Equipment: Sheath(s) Acumen 5F 10CM PINNACLE SHEATH Q-Layer MEDICAL 6F 45CM .038 FLEXOR CHECKFLO ANSEL1 SHEATH Wire(s) [employer] .035 X 150CM FIXED J WIRE Catheter(s) MAURICIO & SIGKAT 5F MP TEMPO AQUA CATHETER Other E2E Networks .035 CXI ANGLED SUPPORT CATHETERS SHER VASCULAR [...] Non-Invasive Vascular Patient: SHERRY Bazan Med Rec#: [id number] (Age): 1940(78y) Study Date: 09/05/2018 Room#: G93 Type: Inpatient Sex: M Reading: Pierce Moreau DO, RPVI Referring: LEVY Assembler Body: Rima Celestin RD, RVT Assembler Body: Deena Pelayo RDCS RVT Procedure Info: 66866 Study Quality: Lower Arterial Duplex: adequate Diagnosis [...] PSV Name Value Units EIA 83.2 cm/sec HOUSETRAILER SERVICER 95.6 cm/sec Profunda 85.5 cm/sec SFA - prox -25 cm/sec SFA - mid -67.2 cm/sec SFA - dist 58.2 cm/sec Popliteal - dist 0 cm/sec STAFF APPRAISER 6.8 cm/sec Pre Stenosis #1 9.3 cm/sec [...] Esau Alejandro MD General Surgery PGY-1 Pager [phone] *After 5pm, or on weekends, page [phone]* Associated attestation - Mohsen Sarabia MD - 09/06/2018 4:46 PM EST Patient seen and examined. I have personally reviewed all pertinent labs, radiological studies and records. I have personally examined the patient and agree with resident/CRUDE TESTER/PA assessment and plan with the following additional [...] and Physical Note 09/04/18 Tristin Powell 1940 [id number] Assessment/Plan: Tristin Powell is a 78 y.o. male with a history of PVD s/p LLE angio with stent placement 08/09, prostate cancer, PVD, CAD, HTN who presented to [facility] 09/04/2018 as a transfer from [place] for second opinion regarding left lower extremity [...] 08/09, Discharged on xeralto. Returned to the [facility] with worsening pain and discoloration of [...] prostate cancer presents as a transfer from [place] for concerns for left lower extremity pain anddiscoloration that was worse for two days. HE has had pain since 08/09 were he had left foot pain and had angioplasty with stent placement to left popliteal . Noted from RN at [facility] to have no No DP pulses by palpation or doppler. Positive popliteal pulse noted.blue/reddish color for the past 2 days . Pain doesn't allow him sleep. While at the [facility] he was planned to undego intervention the day of transfer but requested [facility] transfer for second opinion. [facility] records reviewed as above Patient currently [...] Powell Home Medication Instructions Prior to Surgery LOLA:[id number] Printed on:09/04/18 8402 Medication Information Take last dose on Take [...] Tristin Powell Admit Date: 2060905 MR #: [id number] : 1940 The H&P has been reviewed [...] signed by the above physician 10/08/18 * Araon Choi MD - 10/07/2018 11:56 AM EST [facility] DAILY PROGRESS NOTE Assessment and Plan 78 y.o. male patient of Flash Lovelace MD with history of PAD, CAD and HTN that presented to [place] with need for left foot partial amputation. [...] IV Vancomycin. Monitor local erythema -Radiographs pending -[facility] c'sed for medical management and preoperative clearance. -WBAT to LLE -DVT ppx lovenox. -Patient discussed with Dr. Mann who agrees with assessment and plan. Pt with mummification and drygangrene of left forefoot, patient had bypass surgery of LLE at [facility] in August. Pt with some local erythema will monitor response to Abx. Plan for OR on Monday (10/08/18) for left midfoot amputation. [facility] consulted for medical management. Patient will require preoperative risk stratification. Appreciate [facility] assistance. Further plan per Dr. Mann HISTORY OF PRESENT ILLNESS Tristin Powell is a 78 y.o. 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 Pt was seen by Dr. Mann at the wound care clinic earlier and was admitted for IV antibiotics and surgical intervention. Pt recently underwent bypass surgery at [facility] and has had improved blood flow and demarcation of gangrene since then. Pt does state that he has a cardiac history of triple bypass and stenting but has had no recent cardiac events, does follow with a screw machine operator swiss type. Pt denies any active lung disease. Pt [...] Surgeon: Mohsen Sarabia MD; Location: [facility] NEURO OR; Service: Cardiovascular CARDIAC CATHETERIZATION Left 09/05/2018 Procedure: Angio Lower Extremity; Surgeon: Ben Hahn MD; Location: [facility] INSPECTOR TESTER SORTER; Service: Cardiovascular CARDIAC SURGERY STENT PLACEMENT Medications [...] agree with the findings and the plan. [facility] consulted for medical management and clearance for anticipated left foot TMA and DEREK on Monday. Patient known to Dr. Sarabia, vascular surgery at [facility], and will follow with her next [...] Powell Date of : 1940 Sex: Male PACKING ROOM SUPERVISOR met w/pt and daughter at bedside to discuss d/c recommendations. Daughter reports pt will be going home with 24 hour care from his 7 children. Pt requested a SNF list and will keep his options open. PACKING ROOM SUPERVISOR provided list and pt will notify PACKING ROOM SUPERVISOR with choice of SNF or home tomorrow. PACKING ROOM SUPERVISOR notified pt that she will not be [...] PODIATRY Patient Name: Tristin Powell MR #: [id number] : 1940 Physicians: Flash Lovelace MD (Family); [...] extremity. He eventually underwent intervention in the [place], [place] area in June and July of [...] Surgeon: Mohsen Sarabia MD; Location: [facility] NEURO OR; Service: Cardiovascular CARDIAC CATHETERIZATION Left 09/05/2018 Procedure: Angio Lower Extremity; Surgeon: Ben Hahn MD; Location: [facility] INSPECTOR TESTER SORTER; Service: Cardiovascular CARDIAC SURGERY STENT PLACEMENT Family [...] PLT 234 09/10/2018 No results found for: HCOZ0FSw results found for: SEDRATE No results found [...] artery disease involving coronary bypass graft of umkumiut heart without angina pectoris ARTERIOSCLEROSIS OF CORONARY [...] signed by the above physician 09/10/18 * DereckaliyahChrystal S - 09/10/2018 3:28 PM EST Physical [...] Mod, Two person assist(x2 trials with FWW) Supervisor Sewing Room: Wheeled walker, 2 people, Gait belt Gait/Locomotion [...] medications Prior Level of Function Level of [place]: Independent with ADLs and functional transfers, Independent with homemaking with ambulation Lives With: Alone 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) Comments: planning to provide 24/7 assist from 7 kids Past Medical History: Diagnosis Date Avascular necrosis of bone of hip (HCC) Claudication (HCC) Herpes zoster Hyperlipidemia Hypertension Prostate cancer (HCC) Vascular disease Past Surgical History: Procedure Laterality Date ANKLE SURGERY Left BYPASS PERONEAL FEMORAL Right 09/07/2018 Procedure: BYPASS PERONEAL FEMORAL, RIGHT SAPHENOUS VEIN HARVEST, COMPLETION ANGIOGRAM; Surgeon: Mohsen Sarabia MD; Location: [facility] NEURO OR; Service: Cardiovascular CARDIAC CATHETERIZATION Left 09/05/2018 Procedure: Angio Lower Extremity; Surgeon: Ben Hahn MD; Location: [facility] INSPECTOR TESTER SORTER; Service: Cardiovascular CARDIAC SURGERY STENT PLACEMENT For [...] roles. The patient's home setup is a delivery consultant and family/caregiver support is a delivery consultant for return to prior level of function. 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) Comments: planning to provide 20/03 assist from 7 kids Past Medical History: Diagnosis Date Avascular necrosis of bone of hip (HCC) Claudication (HCC) Herpes zoster Hyperlipidemia Hypertension Prostate cancer (HCC) Vascular disease Past Surgical History: Procedure Laterality Date ANKLE SURGERY Left BYPASS PERONEAL FEMORAL Right 09/07/2018 Procedure: BYPASS PERONEAL FEMORAL, RIGHT SAPHENOUS VEIN HARVEST, COMPLETION ANGIOGRAM; Surgeon: Mohsen Sarabia MD; Location: [facility] NEURO OR; Service: Cardiovascular CARDIAC CATHETERIZATION Left 09/05/2018 Procedure: Angio Lower Extremity; Surgeon: Ben Hahn MD; Location: [facility] INSPECTOR TESTER SORTER; Service: Cardiovascular CARDIAC SURGERY STENT PLACEMENT For [...] yesterday. Patient seen in follow up by PEOPLESOFT PROGRAMMER. See progress note. * Ben Pang, - 09/06/2018 4:26 PM EST Associated Order(s): IP CONSULT TO PAIN TEAM ANCILLARY CONSULT NOTE Patient Name: Tristin Powell Admit Date: 1070905 MR #: [id number] : 1940 Consulting Physicians: [facility] Pain Service Assessment and Plan: Pain of left lower extremity Assessment & Plan . The patient did note that he becomes somewhat fatigued after taking medication, but he has not really been sleeping well. At this point, I think would be appropriate, since he has a plan for the operating room tomorrow, to put him on an opioid naive FINANCE MGR. We will continue to monitor. I did talk extensively with the family about FINANCE MGR safety and only allowing him to push the button. He does have quite a doting family and they all seem to be on board, understanding the safety concerns that this might present in the event that the patient is to sleep and someone is to press the button for him. We would see how his pain syndrome develops after surgery, but FINANCE MGR is probably the appropriate treatment. I would [...] Name: Tristin Powell : 1940 MR #: [id number] Admit Date: 1070905 Nicolas Addendum As below, 78 y.o. male with a h/o PAD, HTN, HLD, CAD s/p cardiac stent (x7, 6663-1521), CABG (x3vv,2017; L [facility]), L ankle ORIF who p/w acute on chronic critical limb ischemia and claudication. Patient states he has been having claudication symptoms in bilateral lower extremities for the past 2-3 years. Patient states that although he has been active the past several months, his symptoms have progressively worsened. In June, the patient visited a suit attendant to evaluate his left foot, in which [...] Dr. Sarabia. Miryam Rincon MD PGY-2 Surgery [phone] After 5pm and on Weekends, please page [phone] (Surgery Screen And Cyclone Repairer division merchandise manager) Assessment and Plan: Tristin Powell is a 78 y.o. male with a PMH of PVD s/p LLE angio with stent placement 08/09, prostatecancer, PVD, CAD, HTN and a PSH of L ankle ORIF and thriple CABG in october 2016 with L saphenous vein harvested who presented to [facility] 09/04/2018 as a transfer from [place] for second opinion regarding left lower extremity pain and discoloration Chronic LLE ischemia - Patient underwent LLE angiogram with popliteal ballooning and stent 08/09/2018 in [place], sent onaspirin and xarelto - Angiography 09/05/18 [...] prostate cancer presents as a transfer from [place] for concerns for left lower extremity pain and discoloration that has progressivley worsened. He has had pain and claudication symptoms for years which prompted him to to be seen 08/09 were he had ballooning and stent placement to left popliteal. He represented 1/3 with increased LLE pain that was never really helped by the stent. Pain doesn't allow him sleep. While at the [facility] he was planned to undego intervention the day of transfer but requested [facility] transfer for second opinion. Review of [...] heparin infusion (weight based dosing) Stopped (09/05/18 154) sodium chloride 0.9 % 20 mL/hr (09/06/18 [...] 09/05/2018 Physician(s): Ben Hahn MD Cath #: [id number] Ref. Physician: PROCEDURE(S) PERFORMED: Ultrasound- guided vascular access Aortogram: Abdominal with runoff-bilateral Peripheral Angiography Lower Extremity Angiogram - Left Clinical History: Prior CABG: Yes Peripheral Arterial Disease: Yes, , with prior peripheral STAFF APPRAISER. Dyslipidemia: Yes Hypertension: Yes Pre-OP Diagnosis/Indication: Marcus Hook Class/Limb Ischemia: 4 - Ischemic rest pain [...] amputation COMMENTS: No Complications ____ Equipment: Sheath(s) Acumen 5F 10CM PINNACLE SHEATH COOK MEDICAL 6F 45CM .038 FLEXOR CHECKFLO ANSEL1 SHEATH Wire(s) [employer]Tol [employer] .035 X 150CM FIXED J WIRE Catheter(s) Syndevrx 5F MP TEMPO AQUA CATHETER Other E2E Networks .035 CXI ANGLED SUPPORT CATHETERS SHER VASCULAR [...] Non-Invasive Vascular Patient: SHERRY Bazan Med Rec#: [id number] (Age): 1940(78y) Study Date: 09/05/2018 Room#: G93 Type: Inpatient Sex: M Reading: Pierce Moreau DO, RPVI Referring: LEVY Assembler Body: Rima Celestin RD, RVT Assembler Body: Deena Pelayo RDCS RVT Procedure Info: [id number] Study Quality: Lower Arterial Duplex: adequate Diagnosis [...] PSV Name Value Units EIA 83.2 cm/sec HOUSETRAILER SERVICER 95.6 cm/sec Profunda 85.5 cm/sec SFA - prox -25 cm/sec SFA - mid -67.2 cm/sec SFA - dist 58.2 cm/sec Popliteal - dist 0 cm/sec STAFF APPRAISER 6.8 cm/sec Pre Stenosis #1 9.3 cm/sec [...] Esau Alejandro MD General Surgery PGY-1 Pager [phone] *After 5pm, or on weekends, page [phone]* Associated attestation - Mohsen Sarabia MD - 09/06/2018 4:46 PM EST Patient seen and examined. I have personally reviewed all pertinent labs, radiological studies and records. I have personally examined the patient and agree with resident/CRUDE TESTER/PA assessment and plan with the following additional [...] EST Associated Order(s): IP CONSULT TO CARDIOLOGY [facility] Physicians Name: Tristin Powell Age: 78 y.o. Date: September 05, 2018 ASSESSMENT & PLAN: Critical lower limb ischemia Assessment & Plan Pt s/p LLE critical limb ischemia Marcus Hook class 4 rest pain with distal discoloration to his toes. Pt is s/p L pop angioplasty with stent placement 08/09 at [facility] in [place], [place]. Ptwas placed on Xarelto and ASA. [...] artery disease involving coronary bypass graft of umkumiut heart without angina pectoris Assessment & Plan [...] ischemia. Pt s/p LLE critical limb ischemia Marcus Hook class 4 rest pain. Pt is s/p L pop angioplasty with stent placement 08/09 at [facility] in [facility] with Dr. Vogt. Pt was placed on Xarelto and ASA. Pt represented to [facility] 08/30 with increased LLE pain. Pt was scheduled to have a vascular surgical procedure at [facility] in [facility] and requested to be tx to [facility]. PAST MEDICAL HISTORY: Past Medical History: [...] to contact me. Respectfully, Yasmeen Diaz, MSN, CRUDE TESTER-C [facility] Physicians Associated attestation - Campos Guerra MD - 09/05/2018 11:01 AM EST [facility] Physicians Vascular Staff: I saw and evaluated the patient with vascular team during inpatient rounds. I discussed the harper findings and I agree with assessment and plan as documented by our vascular PEOPLESOFT PROGRAMMER. Mr. Tristin Powell is a 78 y.o. with male left lower extremity acute on chronic limb ischemia (Deann grade 1 viable limb): Patient is a [...] you for consulting vascular. Raulito Guerra MD [facility] RVPI Vascular Medicine [facility] 09/05/18 10:54 AM [...] assistance Transfers Sit to Stand: Contact guard Supervisor Sewing Room: Wheeled walker Gait/Locomotion Gait Assistance: Contact guard Assistive Device: Wheeled walker Distance: 5 Feet Pattern: L decreased step length Weight Bearing Status: Able to maintain, Non-weight bearing Home Living Type of Home: House Home Layout: One level Home Equipment: Walker, Wheeled Walker, Wheelchair-electric Prior Level of Function Level of [place]: Independent with ADLs and functional transfers, Independent with homemaking with ambulation Lives With: Alone Receives Help From: Family 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 Procedure: LEFT MIDFOOT AMPUTATION; Surgeon: Flynn Mann DPM; Location: [facility] OR; Service: Podiatry ANKLE SURGERY Left BYPASS PERONEAL FEMORAL Right 09/07/2018 Procedure: BYPASS PERONEAL FEMORAL, RIGHT SAPHENOUS VEIN HARVEST, COMPLETION ANGIOGRAM; Surgeon: Mohsen Sarabia MD; Location: [facility] NEURO OR; Service: Cardiovascular CARDIAC CATHETERIZATION Left 09/05/2018 Procedure: Angio Lower Extremity; Surgeon: Ben Hahn MD; Location: [facility] INSPECTOR TESTER SORTER; Service: Cardiovascular CARDIAC SURGERY 2017 triple bypass [...] roles. The patient's home setup is a delivery consultant and family/caregiver support is a delivery consultant for return to prior level of function. The patient's compliance is a delivery consultant and awareness of own capacity and performance is a delivery consultant to return to prior level of function. [...] Wheelchair-electric Prior Level of Function Level of [place]: Independent with ADLs and functional transfers, Independent with homemaking with ambulation Lives With: Alone Receives Help From: Family 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 Procedure: LEFT MIDFOOT AMPUTATION; Surgeon: Flynn Mann DPM; Location: [facility] OR; Service: Podiatry ANKLE SURGERY Left BYPASS PERONEAL FEMORAL Right 09/07/2018 Procedure: BYPASS PERONEAL FEMORAL, RIGHT SAPHENOUS VEIN HARVEST, COMPLETION ANGIOGRAM; Surgeon: Mohsen Sarabia MD; Location: [facility] NEURO OR; Service: Cardiovascular CARDIAC CATHETERIZATION Left 09/05/2018 Procedure: Angio Lower Extremity; Surgeon: Ben Hahn MD; Location: [facility] INSPECTOR TESTER SORTER; Service: Cardiovascular CARDIAC SURGERY 2017 triple bypass [...] completion of Occupational Therapy Plan of Care. Aurelia Webber CNP - 10/10/2018 6:49 AM EST Associated Order(s): IP CONSULT TO GASTROENTEROLOGY CONSULT NOTE Patient Name: Tristin Powell Admit Date: 2060905 MR #: [id number] : 1940 Physicians: Flash Lovelace MD (Family); [...] which time he was in [facility]. At that time he was found [...] MIDFOOT AMPUTATION; Surgeon: Flynn Mann DPM; Location: [facility] OR; Service: Podiatry ANKLE SURGERY Left BYPASS PERONEAL FEMORAL Right 09/07/2018 Procedure: BYPASS PERONEAL FEMORAL, RIGHT SAPHENOUS VEIN HARVEST, COMPLETION ANGIOGRAM; Surgeon: Mohsen Sarabia MD; Location: [facility] NEURO OR; Service: Cardiovascular CARDIAC CATHETERIZATION Left 09/05/2018 Procedure: Angio Lower Extremity; Surgeon: Ben Hahn MD; Location: [facility] INSPECTOR TESTER SORTER; Service: Cardiovascular CARDIAC SURGERY 2016 triple bypass [...] Result Date: 09/10/2018 Non-Invasive Vascular Patient: SHERRY TRISTIN Bazan [facility] Rec#: [id number] (Age): 1940(78y) Study Date: 09/10/2018 Room#: 8506 Type: Inpatient Sex: M Reading: [place] Reading: Ben Hahn MD, RPVI Referring: Esau Alejandro her: Andre Madrid RDCS/RVT Procedure Info: 28550 Study Quality: Lower Arterial Doppler: adequate __ [...] Date: 10/08/2018 REPORT Patient: SHERRY Carmona Rec#: [id number] (Age): 1940(78y) Height: 188(cm)/73(in) Study Date: 10/08/2018 Weight: 99(kg)/218(lbs) Room#: 2456 BSA: [id number] Type: Inpatient Loc: [facility] Echo Lab Sex: M Reading: Emmanuel Connor MD F Referring: AARON CHOI DANIEL Billing And Quality Technician: Geovani Matson RDCS, T History: Hyperlipidemia Hypertension. Valvular disease. Diagnosis: ICD-10-PCS Encounter for preprocedural cardiovascular examination (Z01.810) Cardiac Complications, not classified (997.1) CPT Code(s): ECHO COMPLETE W/ DOPPLER (45189) HCPCS Code C8923 Echo Full w/ contrast. [...] PV p eak gradient 3.23 mmHg none IN end-diastolic Vmax 1.41 m/sec none PA end- diastolic pressure 12.95 mmHg none PV acceleration time 77 msec none Electronically Signed at 10/08/2018 17:26:05 by: NicholasJ. Geeta MD [facility] Xr Ankle Left 3+ Views (standard) [...] of the distal fibula. Extensive vascular calcifications. [employer] Workstation ID: [id number] Xr Foot Left 2 [...] articulations. Surgical drain present. VK/mll Workstation ID: [id number] Xr Foot Left 3+ Views (standard) Result [...] EST Associated Order(s): IP CONSULT TO HOSPITALIST [facility] CONSULTATION NOTE Patient Name: Tristin Powell : 1940 MR #: [id number] Admit Date: 2060905 Physicians: Flash Lovelace MD (Family); Flynn Mann, Torres (Referring) Tristin Powell is a 78 y.o. male patient of Flash Lovelace MD with history of PAD, CAD and HTN that presented to [place] with need for left foot partial amputation. [...] primary Qureshi Catheter: none Disposition Discharge Location: [facility] Estimated Discharge Date: TBD Outpatient Testing: none Chief Complaint: [facility] consulted by Flynn Mann DPM for medical management History of Present Illness: This is a 78 y/o male with past medical history of PAD, CAD and HTN that presented to [place] with need for left foot partial amputation. [...] Surgeon: Mohsen Sarabia MD; Location: [facility] NEURO OR; Service: Cardiovascular CARDIAC CATHETERIZATION Left 09/05/2018 Procedure: Angio Lower Extremity; Surgeon: Ben Hahn MD; Location: [facility] INSPECTOR TESTER SORTER; Service: Cardiovascular CARDIAC SURGERY STENT PLACEMENT Family [...] date is: day after tomorrow (10/07/2018) * Anglea Thompson RN - 10/05/2018 6:48 AM EST COMPLEX DISCHARGE Date: 10/05/2018 Time: 6:48 AM Patient Name: Tristin Powell Date of : 1940 Sex: Male Patient Information Primary Caregiver: Self Accompanied by/Relationship: none Jew/Cultural Factors: none Legal Documentation Advance Directives: (none) Resuscitation Status: Resuscitate Resources Financial Resources: Other (Comment)([employer] Medicare insurance confirmed) Community Resources: Other (Comment)(PCP Dr. Lovelace [phone]) Discharge Plan Shared UM/CC and RN Source of Information: Patient Contact Phone Number: emergency contact Amina Zaidi p:[phone] Living Arrangements: Alone Support Systems: Family members Functional Status: Independent Type of Residence: Private residence(1 floor plan) Prior to Admission Home Care Services: Yes Type of Current Home Care Services: Home health care Current Agency Name: [facility] Current Home Equipment: Walker, Wheeled walker, Toilet seat land surveyor manager, Tub/Shower chair Insurance Coverage for Prescriptions: [...] Patient states that he is current with [facility] kristy Reid and would like to continue with the agency if he needs HH services for discharge. Interim kristy Reid ph# [phone] / fx# [phone] Called agency and left a message requesting a return phone call to [phone] to confirm services. Faxed HH bundle to [...] Associated Order(s): ECG 12-LEAD ED PROVIDER NOTE [facility] EM[facility] NAME: Tristin Powell AGE: 78 y.o. : 1940 VISIT DATE: 09/04/2018 CSN: [id number] PCP: Flash Lovelace MD Chief Complaint Patient presents with Blood Clot HPI Patient transferred from [facility] for left leg peripheral arterial [...] the family requested to be transferred to [facility] for a second opinion. Accepted by the [...] ST segments normal QRS axis: normal normal IN interval normal QRS interval QT Interval: 474 [...] No Tiana Em DO 09/04/182027 * Nasreen Pickett, RN - 09/04/2018 7:26 PM EST Patient [...] Referral note: Call from Dann Chairez MD [phone] Contact Role: Referring Provider Entered By: VAN Bailey Dr states patient admitted 08/30 for left claudication and threatened limb. States patient was seen 08/09 for left foot pain and had angioplasty with stent placement to left popliteal. Pt startedon Xarelto and ASA and discharged. Returned / for increased left foot and leg pain. No pulses. Ptwas to have gone for vascular procedure today, but patient and family are now requesting transfer to a larger hospital and are requesting [facility]. Call to VAN Reynolds [phone] Contact Role: Nurse Entered By: VAN Bailey [...] Sarabia MD - 09/09/2018 2:42 PM EST TRISTIN POWELL CONCHIS [id number] 1940 DATE 09/07/2018 OPERATIVE REPORT SURGEON MOHSEN SARABIA MD [employer] DRIVER BEN JIANG MD PREOPERATIVE DIAGNOSIS Subacute limb ischemia of the left lower extremity. POSTOPERATIVE DIAGNOSIS Subacute limb ischemia of the left lower extremity. PROCEDURE PERFORMED Left femoral to peroneal bypass using contralateral reverse greater saphenous vein. [employer]IVER There was no qualified resident available to [...] cc. MOHSEN SARABIA MD D 09/09/2018 10:46 [id number] T 09/09/2018 14:36 JPW/MODL * Brief Op Note - Mohsen Sarabia MD - 09/08/2018 1:11 AM EST Brief Post Operative Note Patient Name: Tristin Powell : 1940 (78 y.o.) Date of Service: 09/04/2018 - 09/08/2018 CSN: [id number] Procedure(s): BYPASS PERONEAL FEMORAL, RIGHT SAPHENOUS VEIN HARVEST, COMPLETION ANGIOGRAM Pre-Operative Diagnoses: * acute left lower extremity ischemia Post-Operative Diagnoses: * Same as Pre-Op Diagnosis Surgeon(s) and Role: * Mohsen Sarabia MD - Primary * Ben Jiang MD - Assisting Anesthesiologist: Natalie Vieira MD; Andrew Topete MD Plate Worker Helper: Megan Arguelles RN; Odessa Cuellar RN Plate Worker Helper Relief: Sakshi Silvestre RN; Ben Calvillo RN; [...] Implant Name Type Inv. Item Serial No. Assistant Coach Lot No. LRB No. Used Action HEMOSTAT 2 X 4IN SURGICEL FIBRILLAR - [id number] HEMOSTAT 2 X 4IN SURGICEL FIBRILLAR ETHICON [id number] Left 1 Implanted Drain(s): Urethral Catheter Non-latex;Straight-tip [...] nurse). * [facility] - Leeanna Melgoza, OT - 09/07/2018 9:28 AM EST OCCUPATIONAL [...] Assessment & Plan Note - Maranda Meléndez, [employer] PROGRAMMER - 09/06/2018 4:26 PM EST Associated Problem(s): Pain of left lower extremity -Presented to [facility] 09/04/2018 as a transfer from [place] for second opinion regarding left lower extremity [...] in pain -Reports pain is uncontrolled with FINANCE MGR Dilaudid pump, and pain does not decrease [...] CTS consult for tibial bypass Please call [phone] for questions (available 20/03) * Quick Note - Yasmeen Diaz CNP - 09/05/2018 9:46 AM EST Discussed pt with Dr. Guerra, set pt [...] artery disease involving coronary bypass graft of umkumiut heart without angina pectoris Patient with remote [...] bypass. Pt s/p LLE critical limb ischemia Marcus Hook class 4 rest pain with distal discoloration to his toes. Pt is s/p L pop angioplasty with stent placement 08/09 at [facility] in [place], [place]. Ptwas placed on Xarelto and ASA. [...] 10/12/2018 6:58 PM EST Reviewed AVS and [facility] opioid handout with patient and answered all questions. Provide paperwork packet including paper prescriptions for percocet, lovenox and doxcycline. Helped patient dress and packall belongings. Wheeled patient and all belongings to front entrance of [facility] to daughter's vehicle. [facility] * Quick Note - Kristi Grossman RN - 10/12/2018 6:33 PM EST Called report to Chelsea Salinas RN at the [facility]. * Plan of Care - Kristi Grossman [...] follow with Dr. Mann as out-patient at [facility] at [phone] next 10-18-18. Flynn Mann DPM, FACFAS Electronically signed by the above physician 10/09/18 * Plan of Care - Taco Stock RN - 10/08/2018 6:43 PM EST POC went over and updated, will continue to monitor. * Op Note - Flynn Mann DPM - 10/08/2018 9:20 AM TRISTIN GENAO [id number] 1940 DATE 10/08/2018 OPERATIVE REPORT SURGEON FLYNN MANN DPM [employer] TR[employer] DRIVER OFE WOOD DPM, RESIDENT ANESTHESIOLOGIST MACHELLE SARABIA MD PREOPERATIVE DIAGNOSIS Left foot gangrene. POSTOPERATIVE DIAGNOSIS Left foot gangrene. PROCEDURES 1. Left midfoot amputation at [facility] level 2. Left Tendo-Achilles lengthening [...] RESIDENT FLYNN MANN DPM D 10/08/2018 08:53 [id number] T 10/08/2018 09:15 /MODL * Brief Op Note - Ofe Wood DPM - 10/08/2018 8:37 AM EST Brief Post Operative Note Patient Name: Tristin Powell : 1940 (78 y.o.) Date of Service: 10/08/2018 CSN: [id number] Procedure(s): 1. TENDO ACHILLES LENGTHENING, LEFT 2. LEFT MIDFOOT AMPUTATION Pre-Operative Diagnoses: * LEFT FOOT GANGRENE Post-Operative Diagnoses: * SAME Surgeon(s) and Role: * Flynn Mann DPM - Primary * Ofe Wood DPM - Resident - Assisting Anesthesiologist: Machelle Sarabia MD TRACTOR ENGINE MECHANIC: Nikia Mcdermott CRNA Plate Worker Helper: Sussy Hoskins RN Relief Scrub: Angela Qureshi [...] MD Primary Care Provider Active Haven Malcolm NP-CAttending ProviderActiveTeam MemberRelationshipSpecialty Start DateEnd Date Flash Lovelace MD [address] [place] [address] PCP - GeneralFamily Awlqhbdx64/4/18Team MemberRelationshipSpecialtyStart DateEnd Date Flash Lovelace MD [address] [place] [address] PCP - GeneralFamily Tochpitr89/4/18Team MemberRelationshipSpecialtyStart DateEnd Date Flash Lovelace MD [address] [place] [address] PCP - GeneralFamily Medicine09/04/18Team MemberRelationshipSpecialtyStart DateEnd Date Flash Lovelace MD [address] [place] [address] PCP - GeneralFamily Agfgujmt55/4/18Team MemberRelationshipSpecialtyStart DateEnd Date Flash Lovelace MD [address] [place] [address] PCP - GeneralFamily Medicine09/04/18Team MemberRelationshipSpecialtyStart DateEnd Date Flash Lovelace MD [address] [place] [address] PCP - GeneralFamily Medicine09/04/18Team MemberRelationshipSpecialtyStart DateEnd Date Flash Lovelace MD [address] [place] [address] PCP - GeneralFamily Medicine09/04/18Team MemberRelationshipSpecialtyStart DateEnd Date Flash Lovelace MD [address] [place] [address] PCP - GeneralFamily Medicine09/04/18Team MemberRelationshipSpecialtyStart DateEnd Date Flash Lovelace MD [address] [place] [address] PCP - GeneralFamily Medicine09/04/18 Team Status: Inactive Member Role Status Dates Flash Lovelace MD Primary Care Provider Active Cristian Beaver MDAmike ProviderActiveTeam MemberRelationshipSpecialty Start DateEnd Date Flash Lovelace MD [address] [place] [address] PCP - GeneralFamily Medicine09/04/18Team MemberRelationshipSpecialtyStart DateEnd Date Flash Lovelace MD [address] [place] [address] PCP - GeneralFamily Aqfehwrq70/4/18Team MemberRelationshipSpecialtyStart DateEnd Date Flash Lovelace MD [address] [place] [address] PCP - GeneralFamily Czohowkz95/4/18Team MemberRelationshipSpecialtyStart DateEnd Date Flash Lovelace MD [address] [place] [address] PCP - GeneralFamily Medicine09/04/18Team MemberRelationshipSpecialtyStart DateEnd Date Flash Lovelace MD [address] [place] [address] PCP - GeneralFamily Medicine09/04/18Team MemberRelationshipSpecialtyStart DateEnd Date Flash Lovelace MD [address] [place] [address] PCP - GeneralFamily Medicine09/04/18 System, Provider Not In Cardiologist11/09/22Team MemberRelationshipSpecialtyStart DateEnd Date Flash Lovelace MD [address] [place] [address] PCP - [facility] Medicine09/04/18 System, Provider Not In Cardiologist11/09/22Team MemberRelationshipSpecialtyStart DateEnd Date Flash Lovelace MD [address] [place] [address] PCP - [facility]09/04/18 System, Provider Not In Cardiologist11/09/22Team MemberRelationshipSpecialtyStart DateEnd Date Flash Lovelace MD [address] [place] [address] PCP - [facility]07/31/18Team MemberRelationshipSpecialtyStart DateEnd Date Flash Lovelace MD [address] [place] [address] PCP - [facility]07/31/18 Team Status: Inactive Member Role Status Dates Flash Lovelace MD Primary Care Provider Active S tart: October 12, 2023 End: October 12, 2023Amari Fierro ProviderActiveStart: October 12, 2023 End: October 12, 2023 Team Status: Active Member Role Status Dates Flash Lovelace MD Primary Care Provider Active S tart: October 12, 2023 Cristian Beaver MDAttmike Provider, Other ProviderActiveStart: October 12, 2023 Team Status: Inactive Member Role Status Dates Flash Lovelace MD Primary Care Provider Active S tart: October 17, 2023 End: October 17, 2023Gechano Carvalho MDAttending ProviderActiveStart: October 17, 2023 End: October 17, 2023Duke Dunbar , MDReferring ProviderActive Start: October 17, 2023 End: October 17, 2023Team MemberRelationshipSpecialtyStart DateEnd Date Flash Lovelace MD [address] [place] [address] PCP - Humana1 Flash Lovelace MD [address] [place] [address] PCP - GeneralFamily Medicine03/09/23Team MemberRelationshipSpecialtyStart DateEnd Date Flash Lovelace MD [address] [place] [address] PCP - Humana1 Flash Lovelace MD [address] [place] [address] PCP - GeneralFamily Medicine03/09/23Monday, KYLE HernandezN [address] [place] [address] Licensed Practical NurseFamily Ktpsztfo83/25/24Team MemberRelationshipSpecialty Start DateEnd Date Flash Lovelace MD [address] [place] [address] PCP - Humana1 Flash Lovelace MD [address] [place] [address] PCP - GeneralFamily Medicine03/09/23Monday, Mary, CONSTRUCTION C[employer]FT [employer]ORER [address] [place] [address] Licensed Practical NurseFamily Pansyxoi82/25/24Team MemberRelationshipSpecialty Start DateEnd Date Flash Lovelace MD [address] [place] [address] PCP - GeneralFamily Medicine09/04/18 System, Provider Not In Cardiologist11/09/22Team MemberRelationshipSpecialtyStart DateEnd Date Flash Lovelace MD [address] [place] [address] PCP - Humana1 Flash Lovelace MD [address] [place] [address] PCP - GeneralFamily Medicine03/09/23Team MemberRelationshipSpecialtyStart DateEnd Date Flash Lovelace MD [address] [place] [address] PCP - Human08/28/17 Flash Lovelace MD [address] [place] [address] PCP - GeneralFamily Medicine03/09/23Team MemberRelationshipSpecialtyStart DateEnd Date Flash Lovelace MD [address] [place] [address] PCP - Humana1 Flash Lovelace MD [address] [place] [address] PCP - GeneralFamily Medicine03/09/23Monday, ISABELLA Hernandez [address] [place] [address] Licensed Practical NurseFamily Iswssyaf05/25/24Team MemberRelationshipSpecialty Start DateEnd Date Flash Lovelace MD [address] [place] [address] PCP - Pfxmuua93/19/13Team MemberRelationshipSpecialtyStart DateEnd Date Flash Lovelace MD [address] [place] [address] PCP - Flcnnub82/19/13Team MemberRelationshipSpecialtyStart DateEnd Date Flash Lovelace MD [address] [place] [address] PCP - Humana1 Flash Lovelace MD [address] [place] [address] PCP - Generalmily Medicine03/09/23Monday, ISABELLA Hernandez [address] [place] [address] Licensed Practical NurseForsyth [facility] Inf[facility] For [facility] Qtrivxcx87/25/24Team MemberRelationshipSpecialty Start DateEnd Date Flash Lovelace MD [address] [place] [address] PCP - Humana1 Flash Lovelace MD [address] [place] [address] PCP - Generalmily Medicine03/09/23Team MemberRelationshipSpecialtyStart DateEnd Date Flash Lovelace MD [address] [place] [address] PCP - Humana1 Flash Lovelace MD [address] [place] [address] PCP - GeneralFamily Medicine03/09/23Team MemberRelationshipSpecialtyStart DateEnd Date Flash Lovelace MD [address] [place] [address] PCP - Humana1 Flash Lovelace MD [address] [place] [address] PCP - GeneralFamily Medicine03/09/23Team MemberRelationshipSpecialtyStart DateEnd Date Flash Lovelace MD [address] [place] [address] PCP - GeneralFamily Medicine09/04/18 System, Provider Not In Cardiologist11/09/22Team MemberRelationshipSpecialtyStart DateEnd Date Flash Lovelace MD [address] [place] [address] PCP - Humana1 Flash Lovelace MD [address] [place] [address] PCP - GeneralFamily Medicine03/09/23Monday, ISABELLA Hernandez [address] [place] [address] Licensed Practical Nursemily Mdqonsmm77/25/24Team MemberRelationshipSpecialty Start DateEnd Date Flash Lovelace MD [address] [place] [address] PCP - Humana1 Flash Lovelace MD [address] [place] [address] PCP - GeneralFamily Medicine03/09/23 Lorraine Morgan, RN Licensed Practical NurseUnitypoint Health-Trinity Muscatinely Medicine10/04/24Team MemberRelationshipSpecialty Start DateEnd Date Flash Lovelace MD [address] [place] [address] PCP - Humana1/18 Flash Lovelace MD [address] [place] [address] PCP - Generalmily Medicine03/09/23 Elaine Saab [facility] 11/15/24Team MemberRelationshipSpecialtyStart DateEnd Date Flash Lovelace MD [address] [place] [address] PCP - Humana118 Flash Lovelace MD [address] [place] [address] PCP - Generalmily Medicine03/09/23 Elaine Saab [facility] 11/15/24Team MemberRelationshipSpecialtyStart DateEnd Date Flash Lovelace MD [address] [place] [address] PCP - Humana1/118 Flash Lovelace MD [address] [place] [address] PCP - GeneralFamily Medicine03/09/23 Elaine Saab [employer]ER 11/15/24Team MemberRelationshipSpecialtyStart DateEnd Date Flash Lovelace MD [address] [place] [address] PCP - Humana1/18 Flash Lovelace MD [address] [place] [address] PCP - GeneralForsy[facility] Medicine03/09/23 Elaine Saab [facility] 11/15/24Team MemberRelationshipSpecialtyStart DateEnd Date Flash Lovelace MD [address] [place] [address] PCP - Humana1 Flash Lovelace MD [address] [place] [address] PCP - [facility]03/09/23 Elaine Saab, [facility] 11/15/24Team MemberRelationshipSpecialtyStart DateEnd Date Flash Lovelace MD [address] [place] [address] PCP - Humana1 Flash Lovelace MD [address] [place] [address] PCP - [facility] Medicine03/09/23 Elaine Saab [facility] [address] [facility] [address] [place] [address] 11/15/24 Team Status: Inactive Member Role Status [...] 2025Team MemberRelationshipSpecialtyStart DateEnd Date Flash Lovelace MD [address] [place] [address] PCP - GeneralFamily Medicine09/04/18 System, Provider Not In Cardiologist11/09/22Team MemberRelationshipSpecialtyStart DateEnd Date Flash Lovelace MD [address] [place] [address] PCP - GeneralFamily Medicine09/04/18 System, Provider Not In Cardiologist11/09/22Team MemberRelationshipSpecialtyStart DateEnd Date Flash Lovelace MD [address] [place] [address] PCP - GeneralFamily Medicine09/04/18 System, Provider Not In Cardiologist11/09/22Team MemberRelationshipSpecialtyStart DateEnd Date Flash Lovelace MD [address] [place] [address] PCP - GeneralFamily Medicine09/04/18 System, Provider Not In Cardiologist11/09/22Team MemberRelationshipSpecialtyStart DateEnd Date Flash Lovelace MD [address] [place] [address] PCP - Human08/28/17 Flash Lovelace MD [address] [place] [address] PCP - GeneralFamily Medicine03/09/23 Elaine Saab LPN [address] [place] [address] 11/15/24Team MemberRelationshipSpecialtyStart DateEnd Date Flash Lovelace MD [address] [place] [address] PCP - GeneralFamily Medicine09/04/18 System, Provider Not In Cardiologist11/09/22Team MemberRelationshipSpecialtyStart DateEnd Date Flash Lovelace MD [address] [place] [address] PCP - Human08/28/17 Flash Lovelace MD [address] [place] [address] PCP - GeneralFamily Medicine03/09/23 Elaine Saab LPN [address] [place] [address] 11/15/24Team MemberRelationshipSpecialtyStart DateEnd Date Flash Lovelace MD [address] [place] [address] PCP - Humana1 Flash Lovelace MD [address] [place] [address] PCP - GeneralFamily Medicine03/09/23 Elaine Saab LPN [address] [place] [address] 11/15/24Team MemberRelationshipSpecialtyStart DateEnd Date Flash Lovelace MD [address] [place] [address] PCP - Humana1/09/14 Flash Lovelace MD [address] [place] [address] PCP - GeneralFamily Medicine03/09/23 Elaine Saab LPN [address] [place] [address] 11/15/24Team MemberRelationshipSpecialtyStart DateEnd Date Flash Lovelace MD [address] [place] [address] PCP - Humana1 Flash Lovelace MD [address] [place] [address] PCP - GeneralFamily Medicine03/09/23 Elaine Saab LPN [address] [place] [address] 11/15/24Team MemberRelationshipSpecialtyStart DateEnd Date Flash Lovelace MD [address] [place] [address] PCP - Humana1 Flash Lovelace MD [address] [place] [address] PCP - GeneralFamily Medicine03/09/23 Elaine Saab LPN [address] [place] [address] 11/15/24Team MemberRelationshipSpecialtyStart DateEnd Date Flash Lovelace MD [address] [place] [address] PCP - Humana1 Flash Lovelace MD [address] [place] [address] PCP - GeneralFamily Medicine03/09/23 Elaine Saab LPN [address] [place] [address] 11/15/24Team MemberRelationshipSpecialtyStart DateEnd Date Flash Lovelace MD [address] [place] [address] PCP - GeneralFamily Medicine09/04/18 System, Provider Not In Cardiologist11/09/22Team MemberRelationshipSpecialtyStart DateEnd Date Flash Lovelace MD [address] [place] [address] PCP - Humana1 Flash Lovelace MD [address] [place] [address] PCP - GeneralFamily Medicine03/09/23 Elaine Saab LPN [address] [place] [address] 11/15/24Team MemberRelationshipSpecialtyStart DateEnd Date Flash Lovelace MD [address] [place] [address] PCP - Humana1 Flash Lovelace MD [address] [place] [address] PCP - GeneralFamily Medicine03/09/23 Elaine Saab LPN [address] [place] [address] 11/15/24Team MemberRelationshipSpecialtyStart DateEnd Date Flash Lovelace MD [address] [facility] [address] [place] [address] PCP - Humana1 Flash Lovelace MD [address] [facility] [address] [place] [address] PCP - GeneralAt[facility]03/09/23 Elaine Saab LPN [address] [facility] [address] [place] [address] 11/15/24 Team Status: Active Member Role Status Dates Flash Lovelace MD Primary Care Provider Active S tart: March 12, 2025 Cristian Beaver MDOther ProviderActiveStart: March 12, 2025 Beena Negron , MDAttending ProviderActiveStart: March 12, 2025 Team Status: Active Member Role Status Dates Flash Lovelace MD Primary Care Provider Active S tart: May 02, 2025 Muna Greene , DOEmergency ProviderActiveStart: May 02, 2025 Adiel Mccollum , MDAdmit ProviderActiveStart: May 02, 2025 Adiel Mccollum , MDAttending ProviderActiveStart: May 02, 2025 Team Status: Active Member Role Status Dates Flash Lovelace MD Primary Care Provider Active S tart: May 04, 2025 Muna Greene , DOEmergency ProviderActiveStart: May 04, 2025 Adiel Mccollum , MDAdmit ProviderActiveStart: May 04, 2025 Milvia Vang APRN ACNP-BCOther ProviderActiveStart: May 04, 2025 Richie Woodward MDOther ProviderActiveStart: May 04, 2025 Jesse Barry MDOther ProviderActiveStart: May 04, 2025 Randall Valdez MDOther ProviderActiveStart: May 04, 2025 Ramana Gonzalez , DOOther ProviderActiveStart: May 04, 2025 Joyce Orourke MDOther ProviderActiveStart: May 04, 2025 Misael Quinn MDOther ProviderActiveStart: May 04, 2025 Yudelka Martines , MDAttending ProviderActiveStart: May 04, 2025 Yudelka Martines MDOther ProviderActiveStart: May 04, 2025 Ben Handarlyn , DOOther ProviderActiveStart: May 04, 2025 Team MemberRelationshipSpecialtyStart DateEnd Date Flash Lovelace MD [address] [place] [address] PCP - GeneralUnitypoint Health-[facility] Muscatin[facility] Zrmywkxy13/4/18Team MemberRelationshipSpecialtyStart DateEnd Date Flsah Lovelace MD [address] [place] [address] PCP - GeneralF[facility] Dxvrqbtg40/4/18Team MemberRelationshipSpecialtyStart DateEnd Date Flash Lovelace MD [address] [facility] [address] [place] [address] PCP - Humana1 Flash Lovelace MD [address] [facility] [address] [place] [address] PCP - GeneralFamily Medicine03/09/23 Elaine Saab LPN [address] [place] [address] 11/15/24Team MemberRelationshipSpecialtyStart DateEnd Date Flash Lovelace MD [address] [facility] [address] [place] [address] PCP - Humana1/09/14 Flash Lovelace MD [address] [place] [address] PCP - GeneralFamily Medicine03/09/23 Elaine Saab LPN [address] [place] [address] 11/15/24Team MemberRelationshipSpecialtyStart DateEnd Date Flash Lovelace MD [address] [place] [address] PCP - Humana1 Flash Lovelace MD [address] [place] [address] PCP - GeneralFamily Medicine03/09/23 Elaine Saab [employer]ER [address] [place] [address] 11/15/24Team MemberRelationshipSpecialtyStart DateEnd Date Flash Lovelace MD [address] [place] [address] PCP - Humana1 Flash Lovelace MD [address] [place] [address] PCP - GeneralFamily Medicine03/09/23 Elaine Saab LPN [address] [place] [address] 11/15/24Team MemberRelationshipSpecialtyStart DateEnd Date Flash Lovelace MD [address] [place] [address] PCP - GeneralFamily Medicine09/04/18 System, Provider Not In Cardiologist11/09/22Team MemberRelationshipSpecialtyStart DateEnd Date Flash Lovelace MD [address] [place] [address] PCP - Humana1 Flash Lovelace MD [address] [place] [address] PCP - GeneralFamily Medicine03/09/23 Elaine Saab LPN [address] [place] [address] 11/15/24Team MemberRelationshipSpecialtyStart DateEnd Date Flash Lovelace MD [address] [place] [address] PCP - Humana1 Flash Lovelace MD [address] [place] [address] PCP - GeneralFamily Medicine03/09/23 Elaine Saab LPN [address] [place] [address] 11/15/24Team MemberRelationshipSpecialtyStart DateEnd Date Flash Lovelace MD [address] [place] [address] PCP - Humana1 Flash Lovelace MD [address] [place] [address] PCP - GeneralFamily Medicine03/09/23MonMichaelMary goodman LPN [address] [place] [address] Licensed Practical NurseFamily Kfmgqgzi24/25/242/03/21 Lorraine Morgan, VAN [address] [place], [place] [address] Licensed Practical NurseFamily Medicine Elaine Saab LPN [address] [facility] [address] [place] [address] 11/15/24 Scheduled Active and Recently Administ ered Medications (unrecognized section and content) Medication Order// acetaminophen (TYLENOL) tablet 975 mg (COMPLETED) 975 mg, Oral, Once, On Mon01/18/22 at 2330, For 1 dose * 0026 (Given - Provider: Mary Robles RN) aspirin chewable tablet 81 mg 81 mg, Oral, Daily, First dose on Mon01/19/22 at 0900 * 0951 (Given - Provider: Maude Vallejo, VAN) * 0932 (Given - Provider: Rafaela Negron, VAN) * 0950 (Given - Provider: Alma Delia Page, VAN) atorvastatin (LIPITOR) tablet 40 mg 40 mg, Oral, Daily, First dose on Mon01/19/22 at 0900 * 0951 (Given - Provider: Maude Vallejo, VAN) * 0932 (Given - Provider: Rafaela Negron, VAN) * 0950 (Given - Provider: Alma Delia Page, VAN) docusate sodium (COLACE) capsule 100 mg 100 mg, Oral, 2 times daily, First dose on Mon01/19/22 at 0900, Hold for loose stools DO NOT CRUSH OR CHEW. * 0951 (Given - Provider: Maude Vallejo RN) * 2020 (Given - Provider: Kiesha Mosquera, RN) * 0932 (Given - Provider: Rafaela Negron, VAN) * 2030 (Given - Provider: Kiesha Mosquera, RN) * 0950 (Given - Provider: Alma [...] (Given - Provider: Alma Delia Page, VAN) gabapentin (NEURONTIN) capsule 100 mg 100 mg, Oral, Every 8 hours scheduled, First dose on Mon01/19/22 at 0600 * 0951 (Given - Provider: Maude Vallejo RN) * 1338 (Given - Provider: Violetta Stuart RN) * 2220 (Given - Provider: Kiesha Mosquera RN) * 0640 (Given - Provider: Kiesha Mosquera RN) * 1407 (Given - Provider: Rafaela Negron RN) * 2233 (Given - Provider: Kiesha Mosquera RN) * 0614 (Given - Provider: Kiesha Mosquera RN) * 1415 (Given - Provider: Alma Delia Page RN) losartan (COZAAR) tablet 50 mg 50 mg, Oral, Daily with lunch, First dose on Mon01/19/22 at 1200 * 1224 (Given - Provider: Violetta Stuart RN) * 1218 (Given - Provider: Rafaela Negron RN) * 1235 (Given - Provider: Alma Delia Page, VAN) metoprolol tartrate (LOPRESSOR) tablet 50 mg 50 mg, Oral, 2 times daily, First dose on Mon01/19/22 at 0900 * 0951 (Given - Provider: Maude Vallejo RN) * 2020 (Given - Provider: Kiesha Mosquera RN) * 0932 (Given - Provider: Rafaela Negron, VAN) * 2030 (Given - Provider: Kiesha Mosquera RN) * 0950 (Given - Provider: Alma [...] lock * 0010 (Given - Provider: Mary Robles RN) * 0600 (Not Given - Provider: Maude Vallejo RN - Reason: Order parameters not met) * 1340 (Given - Provider: Violetta Stuart, RN) * 2222 (Given - Provider: Kiesha Mosquera, VAN) * 0600 (Due) * 1400 (Canceled Entry - Provider: Rafaela Negron RN) * 2233 (Given - Provider: Kiesha Mosquera RN) * 0615 (Given - Provider: Kiesha Mosquera RN) * 1400 (Not Given - Provider: Alma Delia Page RN - Reason: Contraindicated) tiotropium bromide (SPIRIVA RESPIMAT) 2.5 mcg/actuation inhaler 2 puff 2 puff, Inhalation, Daily (RT), First dose on Mon01/19/22 at 1900 * 2220 (Given - Provider: Kiesha Mosquera RN) * 0932 (Given - Provider: Rafaela Negron RN) * 0951 (Given - Provider: Alma Delia Page RN) vancomycin (VANCOCIN) 1750 mg in sodium chloride 0.9% (NS) 500 mL IVPB 1,750 mg, Intravenous, at 250 mL/hr, Every 18 hours, First dose (after last modification) on Prerna 01/20/22 at 1215, Indication: Cellulitis Not Responding to Beta-lactams * 1223 (New Bag - Provider: Rafaela Negron, VAN) * 1430 (Stopped - Provider: Rafaela Negron RN) * 0726 (New Bag - Provider: Kiesha Mosquera RN) Medication Order// acetaminophen (TYLENOL) tablet 650 mg 650 mg, Oral, Every 4 hours PRN, mild pain, fever 100.4 F or greater, headaches, Starting on Mon01/19/22 at 0008 * 2020 (Given - Provider: Kiesha Mosquera [...] For 3 doses, Anginal pain, may repeat [id number] x3, then notify physician. DO NOT CRUSH [...] 0335 * 1646 (Given - Provider: Violetta Stuart RN) * 2220 (Given - Provider: Kiesha Mosquera RN) * 0658 (Given - Provider: Kiesha Mosquera RN) * 1218 (Given - Provider: Rafaela [...] mL, Intravenous, Once in imaging, contrast, Per refinish technician (Radiology) for line patency check prior to contrast administration, Starting on Mon01/19/22 at 0048, For 1 dose sodium chloride (PF) (NS) 0.9 % contrast line flush 80 mL(Linked Group 4) 80 mL, Intravenous, Once in imaging, contrast, Per refinish technician (Radiology), Starting on Mon01/19/22 at 0048, For [...] mL, Intravenous, Once in imaging, contrast, Per refinish technician (Radiology) for line patency check prior to contrast administration, Starting on Mon01/19/22 at 0048, For 1 dose And sodium chloride (PF) (NS) 0.9 % contrast line flush 80 mLJump to med 80 mL, Intravenous, Once in imaging, contrast, Per refinish technician (Radiology), Starting on Mon01/19/22 at 0048, For 1 dose
30 mL BEFORE contrast administration 50 mL AFTER contrast administration
Medication Order// aspirin EC tablet 81 mg 81 mg, [...] Akins RN - Reason: Patient/family refused) * 0614 (Given - Provider: Mane Akins RN) * 1419 (Given - Provider: Mirta Huerta, VAN) losartan (COZAAR) tablet 50 mg 50 mg, Oral, Daily, First dose on Mon04/15/22 at 0900 * 1014 (Given - Provider: Mirta Huerta RN) metoprolol tartrate (LOPRESSOR) tablet 50 mg 50 mg, Oral, 2 times daily, First dose on Mon04/15/22 at 0900 * 1015 (Given - Provider: Mirta Huerta RN) pantoprazole (PROTONIX) EC tablet 40 mg 40 mg, Oral, Daily, First dose on Mon04/15/22 at 0900, DO NOT CRUSH OR CHEW. * 1015 (Given - Provider: Mirta Huerta RN) polyethylene glycol (MIRALAX) powder 17 g 17 g, Oral, Daily, First dose on Mon04/15/22 at 0900 * 1014 (Given - Provider: Mirta Huerta, VAN) rivaroxaban (XARELTO) tablet 2.5 mg 2.5 [...] 0600 (Canceled Entry - Provider: Mane Akins, VAN) * 1014 (Given - Provider: Mirta Huerta [...] Prerna 04/14/22 at 2111, For 1 dose * 2130 (Contrast Administered - Provider: Beena Yates, TECHNOLOGIST) [...] * 0614 (See Alternative - Provider: Mane Akins, VAN) * 1422 (See Alternative - Provider: Mirta Huerta RN) * 1911 (See Alternative - Provider: Lizz Damon RN) ondansetron (ZOFRAN-ODT) disintegrating tablet 4 mg(Linked Group 3) 4 mg, Oral, Every 6 hours PRN, nausea, vomiting, Starting on Mon04/15/22 at 0101, Use oral route first, if tolerated. Formulation requires tablet remain in sealed package until immediately prior to dose being administered. * 0614 (Given - Provider: Mane Akins, RN) * 1422 (Given - Provider: Mirta Huerta, RN) * 1910 (Given - Provider: Lizz Damon, RN) oxyCODONE-acetaminophen (PERCOCET) 5-325 mg per tablet 1 tablet 1 tablet, Oral, Every 6 hours PRN, moderate to severe pain, Starting on Mon04/15/22 at 0101 * 0126 (Given - Provider: Mane Akins, VAN) sodium chloride (PF) (NS) 0.9 % contrast line flush 10 mL (COMPLETED) 10 mL, Intravenous, Once in imaging, contrast, Per refinish technician (Radiology) for line patency check prior to contrast administration, Starting on Mon04/14/22 at 2110, For 1 dose * 2131 (Given - Provider: Beena Yates, TECHNOLOGIST) sodium chloride (PF) (NS) 0.9 % contrast line flush 80 mL (COMPLETED) 80 mL, Intravenous, Once in imaging, contrast, Per refinish technician (Radiology), Starting on Mon04/14/22 at 2110, For [...] RN) * 1659 (Given - Provider: Terri Mackenzie, VAN) * 2019 (Given - Provider: Meir Nath RN) * 0859 (Given - Provider: Cara Dorado RN) * 1556 (Given - Provider: Cara Dorado, VAN) * 2022 (Given - Provider: Meir Nath RN) * 0928 (Given - Provider: Andree Agarwal, VAN) budesonide-formoteroL (SYMBICORT) 160-4.5 mcg/actuation inhaler 2 puff(Linked Group 1) 2 puff, Inhalation, 2 times daily (RT), First dose on Mon11/03/22 at 2230 * 0836 (Given - Provider: Terri Mackenzie RN) * 2019 (Given - Provider: Meir Nath RN) * 0904 (Given - Provider: Cara Dorado RN) * 2023 (Given - Provider: Meir Nath, VAN) * 0929 (Given - Provider: Andree Agarwal, VAN) cefePIMe-dextrose (MAXIPIME) 2 gram/50 mL IVPB 2,000 mg 2,000 mg, Intravenous, at 100 mL/hr, Every 12 hours, First dose on Mon11/04/22 at 1000, Indication:HAP/VAP * 1138 (New Bag - Provider: Terri Mackenzie RN) * 2247 (New Bag - Provider: Meir Nath, VAN) * 2252 (Paused - Provider: Meir Nath, VAN) * 2253 (Restarted - Provider: Meir Nath, VAN) * 2319 (Stopped - Provider: Meir Nath RN) * 1139 (New Bag - Provider: Cara Dorado, VAN) * 2138 (New Bag - Provider: Meir Nath, VAN) * 1037 (New Bag - Provider: Andree Agarwal, VAN) docusate sodium (COLACE) capsule 100 mg [...] * 0833 (Given - Provider: Terri Mackenzie, VAN) * 1659 (Given - Provider: Terri Mackenzie, VAN) * [...] * 0345 (Not Given - Provider: Gisella Pyle, HEAT ENGINEERING TEACHER - Reason: Patient/family refused - Comment: Patient doesn't want his treatment throughout the night) * 0800 (Not Given - Provider: Sussy Rocha, HEAT ENGINEERING TEACHER - Reason: Patient not available) * 1515 (Given - Provider: Andrew Milan, HIGH LEAD YARDER) * 2012 (Given - Provider: Claire Ireland, HEAT ENGINEERING TEACHER) * 0200 (Not Given - Provider: Claire Ireland HEAT ENGINEERING TEACHER - Reason: Patient/family refused) * 0828 (Given - Provider: Sussy Rocha HEAT ENGINEERING TEACHER) * 1400 (Given - Provider: Sussy Rocha HEAT ENGINEERING TEACHER) * 2024 (Given - Provider: Claire Ireland HEAT ENGINEERING TEACHER) * 0200 (Not Given - Provider: Claire Ireland HEAT ENGINEERING TEACHER - Reason: Patient/family refused) * 0800 (Not Given - Provider: Jesse Ferraro HEAT ENGINEERING TEACHER - Reason: Other - Comment: patient wanted to eat/wait till next round) * 1400 (Due) losartan (COZAAR) tablet 50 mg (CANCELED) 50 mg, Oral, Daily with lunch, First dose on Mon11/04/22 at 1200 * 1351 (Given - Provider: Terri Mackenzie, VAN) metoprolol tartrate (LOPRESSOR) tablet 50 mg 50 mg, Oral, 2 times daily, First dose on Mon11/03/22 at 2230 * 0833 (Given - Provider: Terri Mackenzie, VAN) * 2020 (Given - Provider: Meir Nath, RN) * 899 (Given - Provider: Cara Dorado, VAN) * 2022 (Given - Provider: Meir Nath, RN) * 0928 (Given - Provider: Andree Agarwal, VAN) pantoprazole (PROTONIX) EC tablet 40 mg 40 mg, Oral, 2 times daily, First dose on Prerna 11/03/22 at 2230, DO NOT CRUSH OR CHEW. * 0833 (Given - Provider: Terri Mackenzie RN) * 2019 (Given - Provider: Meir Nath RN) * 08 (Given - Provider: Cara Dorado, VAN) * 2022 (Given - Provider: Meir Nath RN) * 09 (Given - Provider: Andree Agarwal RN) [...] (Given - Provider: Terri Mackenzie RN) * 09 (Given - Provider: Cara Dorado RN) * [...] RN) * 0859 (Given - Provider: Cara Dorado, VAN) * 2022 (Given - Provider: Meir Nath, VAN) * 0928 (Given - Provider: Andree Agarwal, [...] * 0900 (Not Given - Provider: Andree Agarwal, VAN - Reason: Other - Comment: pt states he uses as needed) sodium chloride (PF) (NS) flush 5 mL(Linked Group 2) 5 mL, Intravenous, Every 8 hours scheduled, First dose on Mon11/03/22 at 2230, Saline lock * 0527 (Given - Provider: Misty Ponce, VAN) * 1659 (Given - Provider: Terri Mackenzie, VAN) * 2200 (Canceled Entry - Provider: Meir Nath RN) * 0625 (Given - Provider: Meir Nath, VAN) * 1400 (Canceled Entry - Provider: Cara [...] RN) * 0904 (Given - Provider: Cara Dorado, VAN) * 0929 (Given - Provider: Andree Agarwal, VAN) Medication Order///// aluminum-magnesium hydroxide-simethicone (MAALOX PLUS) 200-200-20 mg/5 mL [...] 1000 * 0525 (Given - Provider: Misty Ponce RN) * 1253 (Given - Provider: Terri Mackenzie RN) * 2242 (Given - Provider: Meir Nath, VAN) sodium chloride (OCEAN) 0.65 % nasal spray 1 spray (CANCELED) 1 spray, Each Nare, As needed, irritation, Starting on 11/05/22 at 1130, Upright delivers a spray; Horizontally a stream; Upside down a drop. * 0835 (Given - Provider: Terri Mackenzie RN) sodium chloride (PF) (NS) flush 5 mL(Linked Group 5) 5 mL, Intravenous, As needed, line care, Starting on Mon11/03/22 at 1326 sodium chloride (PF) (NS) flush [...] scheduled, First dose on Prerna 11/03/22 at 2230
Saline lock
And sodium chloride [...] DAILY, First dose on Mon10/30/22 at 1945 * 1940 (Given - Provider: Jose Panchal RN) Medication Order/ ipratropium-albuterol (DUONEB) nebulizer solution 1 ampule 1 [...] 1500 * 0614 (Given - Provider: Jeremy Merchant, VAN) * 1126 (Given - Provider: Dashawn Cano RN) * 1431 (Given - Provider: Dashawn Cano RN) * 1816 (Given - Provider: Dashawn Cano RN) * 2117 (Given - Provider: Zenobia Clay RN) * 0536 (Given - Provider: Zenobia Clay RN) * 1118 (Given - Provider: Kaylie Denny, VAN) * 1400 (Hold - Provider: Kaylie Denny RN - Reason: Other - Comment: patient sleeping) * 1751 (Given - Provider: Kaylie Denny, VAN) * 2157 (Given - Provider: China Negro, VAN) * 0550 (Given - Provider: China Negro RN) * 1111 (Given - Provider: Katie Pino RN) * 1400 (Not Given - Provider: Katie Pino RN - Reason: Order parameters not met) * 1800 (Due) aspirin EC tablet 81 mg 81 mg, Oral, Daily, First dose on Mon03/14/25 at 1635, DO NOT CRUSH OR CHEW. * 0837 (Given - Provider: Dashawn Cano RN) * 0815 (Given - Provider: Kaylie Denny, VAN) * 0831 (Given - Provider: Katie Pino, AVN) atorvastatin (LIPITOR) tablet 80 mg 80 mg, Oral, Nightly, First dose (after last modification) on Mon03/14/25 at 2130 * 2117 (Given - Provider: Zenobia Clay RN) * 2157 (Given - Provider: China Negro RN) azelastine (ASTELIN) 137 mcg (0.1 %) nasal spray 1 spray 1 spray, Each Nare, Daily, First dose on Mon03/15/25 at 0900 * 0839 (Given - Provider: Dashawn Cano RN) * 0813 (Given - Provider: Kaylie Denny RN) * 0832 (Given - Provider: Katie Pino RN) cyclobenzaprine (FLEXERIL) tablet 10 mg (CANCELED) 10 mg, Oral, Every 8 hours scheduled, First dose on Mon03/17/25 at 2200 * 0614 (Given - Provider: Jeremy Merchant RN) * 1431 (Given - Provider: Dashawn Cano, VAN) * 2117 (Given - Provider: Zenobia Clay, RN) * 0536 (Given - Provider: Zenobia Clay RN) * 1400 (Hold - Provider: Kaylie Denny [...] 64) * 1118 (Given - Provider: Kaylie Denny RN) * 1111 (Given - Provider: Katie Pino RN) metoprolol tartrate (LOPRESSOR) tablet 50 mg 50 mg, Oral, 2 times daily, First dose on Mon03/14/25 at 2200, Please hold if mean arterial pressure (MAP) is less than 65 and/or HR is less than 60 * 0837 (Given - Provider: Dashawn Cano RN) * 2117 (Given - Provider: Zenobia Clay RN - Comment: BP 134/44, MAP 67, HR 88) * 0812 (Given - Provider: Kaylie Denny RN) * 2157 (Given - Provider: China Negro RN) * 0831 (Given - Provider: Katie Pino RN) pantoprazole (PROTONIX) EC tablet 40 mg 40 mg, Oral, Daily, First dose on 03/15/25 at 0900, DO NOT CRUSH OR CHEW. * 0838 (Given - Provider: Dashawn Cano RN) * 0812 (Given - Provider: Kaylie Denny, VAN) * 0831 (Given - Provider: Katie Pino, VAN) polyethylene glycol (MIRALAX) powder 17 g 17 [...] CAD/PAD * 0839 (Given - Provider: Dashawn Cano RN) * 1919 (Given - Provider: Zenobia Clay, VAN) * 0812 (Given - Provider: Kaylie Denny, VAN) * 1938 (Given - Provider: China Negro, VAN) * 0831 (Given - Provider: Katie Pino, VAN) tamsulosin (FLOMAX) 24 hr capsule 0.4 mg 0.4 mg, Oral, After evening meal, First dose on Mon03/15/25 at 1800, DO NOT CRUSH OR CHEW. Give 30 minutes after the same meal daily. Monitor for orthostasis due to potential risk of syncope. * 1816 (Given - Provider: Dashawn Cano RN) * 1751 (Given - Provider: Kaylie Denny, VAN) * 1800 (Due) zolpidem (AMBIEN) tablet 10 mg 10 mg, Oral, Nightly, First dose on Mon03/14/25 at 2200 * 2117 (Given - Provider: Zenobia Clay, VAN) * 2156 (Given - Provider: China Negro, VAN) Medication Order// sodium chloride 0.9% for pressurized line 1,000 [...] at 1024 * 0631 (Given - Provider: eJremy Merchant RN) lidocaine HCL (UROJET/GLYDO) 2 % [...] * 1919 (Given - Provider: Zenobia Clay, VAN) * 0812 (Given - Provider: Kaylie Denny, [...] Primary IV. NOT intended for KVO. Medication Order05/11/// aspirin chewable tablet 81 mg 81 mg, Oral, DAILY, First dose on Mon05/09/25 at 0900, Until Discontinued * 0900 (Automatically Held) * 0808 (Unheld by provider - Provider: Rafaela Garcia MD) * 1044 (Given - Provider: Terrie Hunt RN) * 0921 (Given - Provider: Terrie Hunt, RN) Atorvastatin (LIPITOR) tablet 80 mg 80 mg, Oral, DAILY, First dose on Mon05/09/25 at 0900, Until Discontinued * 1002 (Given - Provider: Tameka Wells RN) * 1051 (Given - Provider: Terrie Hunt, RN) * 1119 (Given - Provider: Terrie Hunt, VAN) ceFEPIme (MAXIPIME) 2 g in dextrose 100 ml premix IVPB (CANCELED) 2 g, Intravenous, Administer over 4 Hours, EVERY 8 HOURS NON-STANDARD, First dose on Mon05/09/25 [id number], Until Discontinued, Infuse STAT doses over 30 minutes. Infuse other doses over 4 hours., On hold since Mon05/12/2025 at 0808 until manually unheld * 0055 ($$New Bag$$ - Provider: Heladio Sandra RN) * 0600 (Stopped - Provider: Heladio Sandra RN) * 1155 ($$New Bag$$ - Provider: Tameka Wells RN - Comment: no iv site) * 1807 ($$New Bag$$ - Provider: Tiana Storm RN - Comment: late on previous dose) * 1836 (Paused - Provider: Terrie Hunt RN) * 1839 (Restarted - Provider: Terrie Hunt RN) * 2018 (Paused - Provider: Terrie Hunt RN) * [...] (Given - Provider: Radha Bucio RCP) * 2006 (Given - Provider: Ben Stewart RCP) * [...] VAN) * 0920 (Given - Provider: Terrie Hunt, VAN) [...] MD) * 1044 (Given - Provider: Terrie Hunt, VAN) * 1737 (Given - Provider: Terrie Hunt, VAN) * 0921 (Given - Provider: Terrie Hunt, VAN) Senna (SENOKOT) tablet 8.6 mg 8.6 mg, [...] RN - Comment: no iv site) * 182 (Stopped - Provider: Tameka Wells RN) * [...] 2116 (Given - Provider: Tabby Thibodeaux RN) Ondansetron (ZOFRAN-ODT) disintegrating tablet 4 mg(Linked Group [...] hours. * 0120 (Given - Provider: Solitario Gonzalez, VAN) * 2116 (Given - Provider: Tabby Thibodeaux [...] RN) * 1430 (Stopped - Provider: Tameka Wells, VAN) Order Group 1: predniSONE (DELTASONE) tablet 40 [...] Mon05/13/25 at 1552, Nausea / Vomiting Medication Order05/11/// aspirin chewable tablet 81 mg 81 mg, [...] 8 HOURS NON-STANDARD, First dose on Mon05/09/25 [id number], Until Discontinued, Infuse STAT doses over 30 [...] refused) * 0759 (Given - Provider: Radha Bucoi RCP) * 1220 (Given - Provider: Radha [...] 0921 (Given - Provider: Terrie Hunt, VAN) Senna (SENOKOT) tablet 8.6 mg 8.6 mg, [...] HOURS NON-STANDARD, First dose (after lastmodification) on 05/10/25 at 1915, Until Discontinued, Indication [...] 1005, Until Mon05/13/25 at 1552, Anxiety * 211 (Given - Provider: Tabby Thibodeaux, VAN) Lactulose (CHRONULAC) oral solution 20 g 20 g, Oral, 2 TIMES DAILY NEEDED, Starting on Mon05/11/25 at 0916, Until Mon05/13/25 at 1552, Constipation 1st Line Melatonin tablet 6 mg 6 mg, Oral, DAILY AT BEDTIME NEEDED, Starting on Mon05/09/25 at 0220, Until Mon05/13/25 at 1552,Insomnia * 2155 (Given - Provider: Brenna Swain RN) * 2117 (Given - Provider: Tabby Thibodeaux, VAN) Ondansetron [...] mouth daily for 5 days 5 tablet rescriptionSigDispensedRefillsStart DateEnd Date benzonatate (TESSALON) 100 MG capsule Take 1 capsule by mouth 3 times daily as needed for Cough 15 capsule levoFLOXacin (LEVAQUIN) 750 MG tablet Take 1 tablet by mouth daily for 5 days 5 tablet Dialysis Access Sites (unrec ognized section and content) TypeStatusLocationPlacement DateRemoval DateSheath (CV Access Device) 08/09/18 1506 Arterial 6 Fr 11 cm Right femoral Label [id number] FOR RECORDS PERTAINING TO PATIENTS WHO ARE [...] BE BASED ON THE PRIMARY CLINICAL RECORDS. [email or web address] provides no warranty or guarantee of the accuracy or completeness of information in this document.
== END 2025-07-09 10:44 | disposition home or self-care (01) ==
LOC: WC 10:43
PROVIDERS: PCP Family Medicine; Visit Provider Podiatrist Foot & Ankle Surgery
DX: I70.261 Atherosclerosis of native arteries of extremities with gangrene, right leg (principal); L97.516 Non-pressure chronic ulcer of other part of right foot with bone involvement without evidence of necrosis
CPT/HCPCS: G0463

== ENCOUNTER 2025-08-13 09:57 | Outpatient (OUT) | payer MEDICARE, SELFPAY ==
--- OUTSIDE RECORDS SUMMARY | 2025-08-13 10:03 | XMS_ITS | Clinical Summary ---
Author Organization [facility] Address [id number] [place] [address] Care Team Providers Care Race Engine Builder Name Role Phone Nikko Bird MD Primary Care Provider [phone] Allergies Active AllergyReactionsCriticalityNoted DateCommentsOxycodoneAnaphylaxisHigh 11/24/2016 Medications MedicationSigDispense [...] Tobacco UseTypesPacks/DayYears UsedDateSmoking Tobacco: Never AssessedChildcare AnswerDate TkeprxkkTqfijoitxUzswgzk04/12/2019EmploymentAnswerDate Recorded MsetzhgdghEkrbbsx97/12/2019Purpose - LifeAnswerDate RecordedPurpose and direction in pvqsTjhutjl05/11/2021Sex and Gender InformationValueDate Recorded Sex Assigned at BirthNot on fileLegal QclWysg5304/02/2015 11:35 AM EDTGender IdentityNot on fileSexual OrientationNot on file Last Filed Vital Signs Vital SignReadingTime TakenCommentsBlood Wmantzvi161/68011/24/2016 10:29 AM EDT Mlwtq5849 10:29 AM QAOBgfwxxhzqjr53.7 ??C (98 ??F)11/24/2016 10:29 AM EDTRespiratory Vzqk816211/24/2016 10:29 AM EDTOxygen Saturation--Inhaled Oxygen Concentration--Lkwzfu960.6 kg (235 lb)11/24/2016 10:29 AM EDTHeight--Body Mass Index-- Plan of Treatment Health MaintenanceDue DateLast DoneCommentsDepression Rigkvksfj09/09/1951Tobacco Bzsaztxrt09/09/1951TaP,Tdap and Td Vaccines (1 - Tdap)1958Zoster (Shingles) Vaccine (1 of 2)1989Fall Risk Oawsvuwvg05/09/2004RSV ( or age 60+ yrs) (1 - 1-dose 75+ series)2014Influenza Cirywwc6404/28/2025 Medical Devices Not on file Insurance Care Teams Team MemberRelationshipSpecialtyStart DateEnd Nikko Bird MD [facility] [address] [place] [phone] [facility]11/16/16
--- OUTSIDE RECORDS SUMMARY | 2025-08-13 10:03 | XMS_ITS | Encounter Summary ---
Author Organization [facility] Address [address] [place] [address] Care Team Providers Care Magnetic Observer Name Role Phone Nikko Bird MD Unavailable Nikko Bird MD Primary Care Provider [phone] Elaine Saab LPN Unavailable Reason for Visit * ReasonCommentsMed Refill Encounter Details DateTypeDepartmentCare Team (Latest Contact Info)Qbsgrohpngf47/15/2025Refill [facility] [address] [place] [id number] Nikko Bird MD [address] [facility] [address] [place] [address] Benign essential hypertension Social History Tobacco UseTypesPacks/DayYears UsedDateSmoking Tobacco: NeverSmokeless Tobacco: NeverAlcohol UseStandard Drinks/WeekCommentsNot Currently0 (1 standard drink = 0.6 oz pure alcohol)Coffee 1-2 cups per [id number] Health LiteracyAnswerDate RecordedHow often do you need to have someone help you when you read instructions, pamphlets, or other written material from your doctor or pharmacy? Jzlgkh6206/21/2024Humiliation, Afraid, Rape, and Kick questionnaireAnswerDate RecordedWithin the [...] heating?Not hard at all06/21/2024HQ-2AnswerDate RecordedPatient Health Questionnaire-2 [id number] hospitals [place] [facility] - Occupational Stress QuestionnaireAnswerDate [...] InformationValueDate RecordedSex Assigned at BirthNot on fileLegal SilMfmz1011/09/2022 7:18 PM EDTGender IdentityNot on fileSexual OrientationNot [...] Date Nikko Bird MD [address] [facility] [address] [place] [address] PCP - Human08/28/17 Nikko Bird MD [address] [facility] [address] [place] [address] [facility] - [facility]23 Elaine Saab LPN [address] [facility] [address] [place] [address] 11/15/24documented as of this encounter
--- OUTSIDE RECORDS SUMMARY | 2025-08-13 10:03 | XMS_ITS | Clinical Summary ---
Author Organization [facility] [employer] [facility] Address [address] [place] [address] [place] [address] Care Team Providers Care Police Crime Scene Technician Name Role Phone Nikko Bird MD Primary Care Provider [phone] Allergies Active AllergyReactionsCriticalityNoted RwulYcjzdxpbRjwahrnyjw60/12/2025 Medications MedicationSigDispense QuantityRefillsLast FilledStart DateEnd DateStatus rivaroxaban [...] needed.5Active Active Problems ProblemNoted DateDiagnosed DateAnemia (Low HGB)05/09/20251571Ludtcxwban27/12/2025 Qmqwzrglhq10/12/2025oronary artery disease involving [place] coronary artery of [place] heart without angina /18/2021/P transmetatarsal amputation of foot, left07/15/2021Mixed tsyuylmjgftmdj15/18/2021eripheral arterial disease 07/15/2021/P total hip zjjizhdfctqm76/18/2021Obesity: body mass index of 30.0-34.9110/11/2017 Assessment & Plan (08/30/2018 3:40 PM EST): Diet and lifestyle modifications strongly encouraged Follow up after discharged with PCP for further treatment options Claudication of left lower uufxkogcn76/14/2018 Assessment & Plan (08/10/2018 11:36 AM EST): S/P Left Lower Extremity Angiogram with ballooning and stent 08/09/2018 Post op orders per surgeon DVT/GI prophylaxis Monitor labs, VS and telemetry as ordered Pain management Essential xngwizflegjs26/14/2018 Assessment & Plan (08/30/2018 3:39 PM EST): Resume home medications as ordered Follow up after discharged with PCP Labetalol PRN for SBP> 160 Monitor VS as ordered Assessment & Plan (08/10/2018 11:36 AM EST): Resume home medications as ordered Follow up after discharged with PCP Labetalol PRN for SBP> 160 Monitor VS as ordered Pure krglzwnzoxnythroklsw08/14/2018 Assessment & Plan (08/30/2018 3:39 PM EST): Resume home medications Follow up after discharged with PCP Assessment & Plan (08/10/2018 11:37 AM EST): Resume home medications Follow up after discharged with PCP Lipid panel ordered Vascular disease, gnuaqlwtpa24/14/2018 Assessment & Plan (08/10/2018 11:37 AM EST): S/P angiogram with Dr. Mayen Follow up after discharged as previously scheduled Dvjrofnojwvq53/12/2018 Overview (08/08/2018): Added automatically from request for surgery [id number] Assessment & Plan (08/30/2018 3:38 PM EST): Heparin drip initiated, pharmacy to manage per protocol ASA and Plavix started Cardiovascular surgeon consulted PT/OT evaluation and treatment Monitor labs, VS and telemetry as ordered Pain management Herpes zwhpha8709/04/2011Pain of left lower fyluvsdnu49/08/2012vascular necrosis of bone of hip09/04/2011 Overview (09/04/2011): Right hip Prostate klsozt6009/04/2011 Resolved Problems ProblemNoted DateDiagnosed DateResolved DateHip pain Family History Medical HistoryRelationNameCommentsProstate CancerBrotherNo known problems [...] InformationValueDate RecordedSex Assigned at BirthNot on fileLegal HetHzax7609/30/2012 7:06 PM ESTGender AisutsbwIupv58/19/2018 11:34 AM ESTSexual OrientationNot on file Last Filed Vital Signs Vital SignReadingTime TakenCommentsBlood Pfsmaedx434/68005/13/2025 7:29 AM EDT Cmbfq5478/16/2025 7:29 AM CKBYfeyzonqiwx47.4 ??C (97.5 ??F)05/13/2025 7:29 AM EDTRespiratory Peet967905/13/2025 7:29 AM EDTOxygen Hmanjtgycu09%05/13/2025 7:29 AM EDTInhaled Oxygen Concentration--Tfafkt552.9 kg (240 lb)05/09/2025 2:00 AM HRDBhacwl395 cm (6' 2 )05/09/2025 2:00 AM EDTBody Mass Index30.8105/09/2025 2:00 AM EDT Plan of Treatment Health MaintenanceDue DateLast DoneCommentsCOLORECTAL CANCER SCREENING DPRLYQNVMS80/09/1984ZOSTER (SHINGLES) VACCINE (1 of 2)1989RSV VACCINE (1 - 1-dose 75+ series)2014COVID-19 VACCINE (2024- season)2025 09/09/2021, 10/28/2020, 09/30/20200761QHYQNIZFM98/14/202609/, 05/09/2025, 06/17/2021, Additional history eowwyfGGIXYDX76TDAP (ADULT) Hwoguxlan50/03/2020PNEUMOCOCCAL VACCINE MZUVTRZyxbdulug16/11/2021, 05/28/2020, 05/18/2015INFLUENZA UIEDTMCVqyddfnzh30/14/2025, 08/12/2024, 06/06/2023, Additional history existsHEP B VACCINEAged OutNo longer eligible based on patient's age to complete this topic Medical Devices ImplantedTypeAreaManufacturerDevice IdentifierShelf Expiration DateModel / Serial / LotPinnacle Altrx Polyethylene Acetabular Liner Neutral 36mm Id 62mm Od Implanted:Qty: 1 on 07/15/2021 [facility]: Hip07/27/2025/ 1221-36-052 / [id number] Gription Acetabular Shell Sector 62mm Od Implanted:Qty: 1 on 07/15/2021 by [facility]: Hip09/27/2029/ 1217-32-062 / [id number] Delta Ceramic Femoral Head +1.5 36mm Jaki 08/10 Taper Implanted:Qty: 1 on 07/15/2021 by [facility]: Hip04/27/2026/ 1365-36-310 / [id number] Femoral Stem 08/10 Taper Size 7 Mi 133mm Implanted:Qty: 1 on 07/15/2021 by [facility]: Hip10/25/2025/ 1570-13-135 / [id number] Stem Centralizer 12.0mm Cemented Implanted:Qty: 1 on 07/15/2021 by [facility]: Hip09/27/2025/ 1376-21-000 / [id number] Flex [id number] - [id number] Implanted:Qty: 1 on 08/09/2018 [facility]: LegCORDIS/[id number] / / [id number] Flex [id number] - [id number] Implanted:Qty: 1 on 08/09/2018 [facility]: LegCORDIS/[id number] / / [id number]-Rgjz 6f Vip - [id number] Implanted:Qty: 1 on 08/09/2018 by [facility]ight: GroinTERO [id number] / / [id number] R 1 X 40 Us - [id number] Implanted:Qty: 1 on 07/15/2021 by Dashawn Silvestre MD at [facility] LOC Right: Hip/ / [id number] Lv 1x40 Single - [id number] Implanted:Qty: 2 on 07/15/2021 by Dashawn Silvestre MD at [facility] LOC Right: HipZIMMER BIOMET [id number] / / [id number] Procedures Procedure NamePriorityDate/TimeAssociated DiagnosisCommentsCHEM 6 (LYTES, BUN CREA)Xsymsda9705/11/2025 3:53 AM EDT from Last 3 Months or Most Recently Relevant to Health Maintenance Results * CHEM 6 (LYTES, BUN CREA) (05/11/2025 3:53 AM EDT)ComponentValueRef RangeTest MethodAnalysis TimePerformed AtPathologist ZdtouroduRUB093 - 25 mg/dL 05/11/2025 4:44 AM [facility] EAJUJJTQVPXbivtv277 135 - 145 mmol/L05/11/2025 4:44 AM [facility] LABORATORYPotassium3.63.5 - 5.0 mmol/L05/11/2025 4:44 AM [facility] UJFUZCKPFVZbudveyz92528 - 108 mmol/L05/11/2025 4:44 AM [facility] VALXQEWGKWIC39040 - 31 mmol/L05/11/2025 4:44 AM [facility] LABORATORYCreatinine0.890.70 - 1.30 mg/dL05/11/2025 4:44 AM [facility] Bun/Crea Drkme970305/11/2025 4:44 AM [facility] LABORATORYAnion Mgn986 - 17 mmol/L05/11/2025 4:44 AM [facility] LABORATORYeGFR, CKD-EPI, Male83>=60 mL/min/1.83b38205/11/2025 4:44 AM [facility] LABORATORYComment:Reported eGFR is based on the CKD-EPI 2020 equation using creatinine, age, and sex.Specimen (Source)Anatomical Location / LateralityCollection Method / VolumeCollection TimeReceived TimeBloodVenipuncture / Lnntxur8905/11/2025 3:53 AM EDT05/11/2025 4:16 AM EDT Narrative Authorizing ProviderResult TypeResult StatusMegarry Aguila MDCHEMISTRY ORDERABLES Final ResultPerforming OrganizationAddressCity/State/ZIP CodePhone Number [facility] [address] [place] [address] from Last 3 Months or Most Recently Relevant to Health Maintenance Insurance * Guarantor: Reji Powell Sr. TypeRelation to PatientDate of BirthPhone Billing AddressPersonal/IzcwrhHlbr1940 [address] [place] [id number] Advance Directives For more information, please contact: [phone] (7:30 AM - 6PM [facility], Monday-Monday) TypeDate RecordedPatient RepresentativeExplanationHealthCare Power of Economic Adviser 10/08/2018 * Full Code (Latest Code Status on File) Date ActivatedDate InactivatedComments05/09/2025 4:40 AM * Full Code Date ActivatedDate KcldiyyfwbiQaxmpiyv55/18/2021 2:40 PM05/09/2025 4:40 AM * Full Code Date ActivatedDate InactivatedComments09/03/2018 11:29 AM07/15/2021 2:40 PM * Full Code Date ActivatedDate InactivatedComments09/01/2011 7:48 AM09/04/2011 4:13 PM NameRelationshipHealthcare Agent RelationshipCommunicationJudy Ann MarshallPresbyterian Española Hospital Health Care Agent* Care Teams Team MemberRelationshipSpecialtyStart DateEnd Date Nikko Bird MD [address] [place] [address] PCP - GeneralFamily Kfpfzyxc21/4/18
--- OUTSIDE RECORDS SUMMARY | 2025-08-13 10:03 | XMS_ITS | Clinical Summary ---
Author Organization [facility] Address [address] [place] [address] Care Team Providers Care Hydrotechnical Specialist Name Role Phone Nikko Bird MD Primary Care Provider [phone] Allergies Active AllergyReactionsCriticalityNoted FyekGyyxeufdMdpatzkvouy82/28/2019 Elevated blood pressure, GI intolerance/ nausea/vomiting MmmksnyjjOvevjlpbscjAtpa78/30/2017 Medications MedicationSigDispense QuantityRefillsLast FilledStart DateEnd DateStatus albuterol [...] mg SL tablet Indications:Coronary artery disease involving [place] coronary artery of [place] heart without angina pectorisPlace 1 tablet (0.4 [...] tablet 5Active Active Problems ProblemNoted DateDiagnosed DateBronchiectasis, rcxmzbfupzhhw79/10/2025Acquired absence of left leg below knee07/22/2024Other complications of amputation stump 07/22/2024oronary artery kagzwzm0406/11/2024NSTEMI (non-ST elevated myocardial infarction)05/28/2024Hx of CABG05/28/2024Secondary hypercoagulable state 4Pulmonary hypertension, tonljprxorc06/30/2024Acute cystitis without scnxtsoly95/25/2024 Overview (04/22/2024): Last Assessment & Plan: Add Probiotic to help replenish the good bacteria that are destroyed by the Antibiotics Florastor Florajen Align or try Activia in Yogurt Probiotics reduce the risk of antibiotic induced diarrhea Other kzzjanrqtuspg32/25/2024 Overview (04/22/2024): Last Assessment & Plan: Has blood thinner Flu vaccine need4Routine general medical examination at health care lzttdkeq10 Overview (10/09/2023): Last Assessment & Plan: Colonoscopy [...] US Acute exacerbation of chronic obstructive pulmonary mhiotjx09 Abnormal radiographic wucrbzcldqk00cute on chronic heart failure with preserved ejection nckxaekp70rthritis04/09/2023 10/09/2023sthmatic fogqsmunny80arotid artery stenosis Overview (10/09/2023): Last Assessment & Plan: Getting Carotid dopplers Atdvfwzv05hronic kidney disease due to cwmkkschseuj66/13/2023 10/09/20235738Crstxtdgicud68Elevated erythrocyte sedimentation rateLeft sciatic nerve painNeuropathy Other chronic painaresthesia of skin aroxysmal atrial qbjctngebkos21hantom limb painolymyalgia licsgdpfmw42rimary osteoarthritis of right hip/07/2024Seasonal allergic rhinitis Sinusitis [...] any sugar elevations. Stage 3a chronic kidney vfbtxkf41hronic diastolic (congestive) heart ftcizwn0404/09/20230891Kjbtlbjr07/25/202308/03/2023Lumbosacral spondylosis without fbhsmgoyum19Mitral valve regurgitation 11/21/2022Inguinal pain11/21/20228936Kddvoyx98/27/2023osterior tibial tendinitis of right leg11/07/2022Hematoma of arm, [...] pneumonia of left lower lobe of lung11/03/2022ulmonary bmsoip1001/21/20228497Fsyjyuobvx36/24/2022Thoracic aortic aneurysm without rupture 01/12/2022oronary artery disease involving [place] coronary artery of [place] heart without angina tvmuonoo69/18/2021/P total hip jxzaskkguyfu87/18/2021S/P transmetatarsal amputation of foot, left1Aortic valve regurgitation 1Peripheral arterial occlusive vyqqnou8501/09/2019Gangrene of left foot 10/04/2018Coronary artery disease involving coronary bypass graft of [place] heart without angina ceqlwtzv53/09/2019 Overview (11/21/2022): Last Assessment & Plan: Patient with remote coronary artery bypass grafting to 3 vessels. Patient denies chest pain at thistime. Ixbhcqwwwgctfxsawk02/09/2019 Overview (11/21/2022): Last Assessment & Plan: Patient [...] a goal BMI <30. Critical lower limb utylohox81/08/2019 Overview (11/21/2022): Last Assessment & Plan: Pt s/p LLE angiogram with Dr Hahn who feels that the pt has no further endovascular options. He has consulted Dr. Millan for a possible tibial bypass. Pt s/p LLE critical limb ischemia [place] class 4 rest pain with distal discoloration to his toes. Pt is s/p L pop angioplasty with stent placement 08/[address] [facility] in [place], [place]. Ptwas placed on Xarelto and ASA. [...] medication. ?? Will sign off Peripheral arterial qibbxpe0908/10/2018 Overview (11/21/2022): Last Assessment & Plan: S/P [...] was known to be reduced (0.5) Pure wlksdcgarhdcmsnoaaah50/14/2018 Overview (11/21/2022): Last Assessment & Plan: Resume home medications Follow up after discharged with PCP Obesity (BMI 30.0-34.9)08/10/2018 Overview (11/21/2022): Last Assessment & Plan: Diet and lifestyle modifications strongly encouraged Follow up after discharged with PCP for further treatment options Intermittent goqpfsmcayeb90/12/2018 Overview (11/21/2022): Added automatically from request for surgery [id number] Last Assessment & Plan: Heparin drip initiated, pharmacy to manage per protocol ASA and Plavix started Cardiovascular surgeon consulted PT/OT evaluation and treatment Monitor labs, VS and telemetry as ordered Pain management Last Assessment & Plan: S/P Left Lower Extremity Angiogram with ballooning and stent 08/09/2018 Post op orders per surgeon DVT/GI prophylaxis Monitor labs, VS and telemetry as ordered Pain management Tnhjrzefo72/04/5018Csabdlryn62/18/2014bdominal pain07/11/2014Hypertensive /22/2014 Overview (11/21/2022): Last Assessment & Plan: Resume home medications as ordered Follow up after discharged with PCP Labetalol PRN for SBP> 160 Monitor VS as ordered Last Assessment & Plan: Patient with history of hypertension. Blood pressure at this time 132/62. Plan: ?? Continue medications as prescribed. Disorder of lipid ojrwdiqtbg27/27/6689Xwfapnhqj65/14/2014Chest pain08/30/2013 Coronary hzsuoalyevraogn61/03/2014Mixed shvhezeojddcuk78/03/2014Dyspnea 08/30/2013Preinfarction fxjsecux56/03/2014vascular necrosis of bone of hip 09/04/2011 Overview (11/21/2022): Right hip Herpes kifdne0909/04/2011Pain of left lower umqjhstfp77/08/2012 Overview (11/21/2022): Last Assessment & Plan: -Presented to [facility] 09/04/2018 as a transfer from [place] for second opinion regarding left lower extremity [...] in pain -Reports pain is uncontrolled with CHIEF JAILER Dilaudid pump, and pain does not decrease [...] Fernandez RN -Please call with questions Prostate wrbwby6609/04/2011Chronic ischemic heart fsknmyi26 Impotence of organic ufaqca854Benign essential hypertension 07/04/2008 Overview (04/22/2024): Last Assessment [...] Free06/21/2021,06/02/2020,06/06/2018,05/18/2015Influenza, High-dose Seasonal, Quadrivalent, Preservative Free05/31/2022Influenza, injectable, eqqhufwjrcdg07/25/2017Influenza, trivalent, mivuefwbue15/22/2019Moderna SARS-CoV-2 Plhachluxxu69/13/2022,10/28/2020,1Pneumococcal Conjugate PCV 131,05/18/2015Pneumococcal Polysaccharide EXU535710/08/2020Tdap09/30/2019 Family History Medical HistoryRelationNameCommentsCoronary artery diseaseOtherHyperlipidemia OtherHypertensionOtherRelationNameStatusCommentsOther Social History Tobacco UseTypesPacks/DayYears UsedDateSmoking Tobacco: NeverSmokeless Tobacco: Never Tobacco Cessation:Counseling Given: Not Answered Alcohol UseStandard Drinks/WeekCommentsNot Currently0 (1 standard drink = 0.6 oz pure alcohol)RI Safety & EnvironmentAnswerDate RecordedFear of Current or Ex-PartnerNot on file10/19/2023Emotionally AbusedNot on file10/19/2023hysically AbusedNot on file10/19/2023Sexually AbusedNot on file10/19/2023hysically or Sexually AbusedNot on file10/19/2023Sex and Gender InformationValueDate Recorded Sex Assigned at BirthNot on fileLegal GgzYcnr1402/23/2022 9:56 PM EDTGender IdentityNot on fileSexual OrientationNot on file Last Filed Vital Signs Vital SignReadingTime TakenCommentsBlood Yuzymylv886/7604 1:22 PM EDT Obnox8624 1:22 PM EDTTemperature--Respiratory Dseg813809/09/2023 12:15 PM ESTOxygen Aujbexddcb52%12/18/2024 1:22 PM EDTInhaled Oxygen Concentration-- Scejho691 kg (248 lb)12/18/2024 1:22 PM NGDJynyjy909 cm (6' 2 )12/18/2024 1:22 PM EDTBody Mass Index31.8404 1:22 PM EDT Plan of Treatment Health MaintenanceDue DateLast DoneCommentsMedicare Annual Wellness (AWV) 1939Depression Slcmoqtkq20/09/1951Zoster Vaccines (1 of 2)1989Fall Risk Cgmpvrums58/09/2004COVID-19 Vaccine ( season)2025 09/09/2021, 09/09/2021, 10/28/2020, Additional history existsInfluenza Vaccine (#1)512/, 06/06/2023, 05/31/2022, Additional history existsAdult Zbumunu18Pneumococcal Vaccine: 50+ YoynaFzixnvojd77/11/2021, 05/28/2020, 05/18/2015HIB VaccinesAged OutNo longer eligible based [...] Team MemberRelationshipSpecialtyStart DateEnd Date Nikko Bird MD [address] [place] [address] PCP - General11/21/22
--- OUTSIDE RECORDS SUMMARY | 2025-08-13 10:03 | XMS_ITS ---
Author Organization [facility] Address [address] [place] [address] Care Team Providers Care Alto Singer Name Role Phone Nikko Bird MD Primary Care Provider [phone] Active Problems ProblemNoted DateDiagnosed DateBronchiectasis, dmwrlatzrbwss93/10/2025Acquired absence of left leg below knee07/22/2024Other complications of amputation stump 4Coronary artery tlgobtl6706/11/2024NSTEMI (non-ST elevated myocardial infarction)05/28/2024Hx of CABG05/28/2024Secondary hypercoagulable state 4Pulmonary hypertension, sqsximngvfw73/30/2024Acute cystitis without /25/2024 Overview (04/22/2024): Last Assessment & Plan: Add Probiotic to help replenish the good bacteria that are destroyed by the Antibiotics Florastor Florajen Align or try Activia in Yogurt Probiotics reduce the risk of antibiotic induced diarrhea Other eceorfpzsarpl29/25/2024 Overview (04/22/2024): Last Assessment & Plan: Has blood thinner Flu vaccine need4Routine general medical examination at health care fyecaxeq91 Overview (10/09/2023): Last Assessment & Plan: Colonoscopy [...] US Acute exacerbation of chronic obstructive pulmonary qzyuzul89 Abnormal radiographic pjbtmmmcust64cute on chronic heart failure with preserved ejection slcdomtq44rthritis04/09/2023 10/09/2023sthmatic ibddvwdclw70arotid artery stenosis Overview (10/09/2023): Last Assessment & Plan: Getting Carotid dopplers Jaauqkae26hronic kidney disease due to rbkoyebwfxbl92/13/2023 10/09/20236312Vfpgoameyatu38Elevated erythrocyte sedimentation rateLeft sciatic nerve painNeuropathy Other chronic painaresthesia of skin aroxysmal atrial czxsdphuaxxt07hantom limb painolymyalgia uadrksitlt49rimary osteoarthritis of right hipSeasonal allergic rhinitis Sinusitis [...] any sugar elevations. Stage 3a chronic kidney jmzapxj58hronic diastolic (congestive) heart ymodlxq5604/09/20238563Dgnxauew08Lumbosacral spondylosis without xilluvmtwz83Mitral valve regurgitation 11/21/2022Inguinal pain11/21/20224371Anhufmi95/27/2023osterior tibial tendinitis of right leg11/07/2022Hematoma of arm, left, initial zqxdumetd05/10/2023 Overview (11/21/2022): Last Assessment & Plan: 82 [...] pneumonia of left lower lobe of lung11/03/2022ulmonary mhbjqr9601/21/20226787Zmnisbgzvf76/24/2022Thoracic aortic aneurysm without rupture 01/12/2022oronary artery disease involving [place] coronary artery of [place] heart without angina swjcieum75/18/2021/P total hip /18/2021/P transmetatarsal amputation of foot, left07/15/2021ortic valve regurgitation 05/07/2021Peripheral arterial occlusive ydhznaw7901/09/2019Gangrene of left foot 10/04/2018Coronary artery disease involving coronary bypass graft of [place] heart without angina dktnrynm89/09/2019 Overview (11/21/2022): Last Assessment & Plan: Patient with remote coronary artery bypass grafting to 3 vessels. Patient denies chest pain at thistime. Lsjgxkdiwzrtjfztzs90/09/2019 Overview (11/21/2022): Last Assessment & Plan: Patient [...] a goal BMI <30. Critical lower limb rgoasvee98/08/2019 Overview (11/21/2022): Last Assessment & Plan: Pt s/p LLE angiogram with Dr Hahn who feels that the pt has no further endovascular options. He has consulted Dr. Millan for a possible tibial bypass. Pt s/p LLE critical limb ischemia [place] class 4 rest pain with distal discoloration to his toes. Pt is s/p L pop angioplasty with stent placement 08/09 at [facility] in [place], [place]. Ptwas placed on Xarelto and ASA. [...] medication. ?? Will sign off Peripheral arterial mokzgig1408/10/2018 Overview (11/21/2022): Last Assessment & Plan: S/P [...] was known to be reduced (0.5) Pure zhdckqmvzefjpykvcquf27/14/2018 Overview (11/21/2022): Last Assessment & Plan: Resume home medications Follow up after discharged with PCP Obesity (BMI 30.0-34.9)08/10/2018 Overview (11/21/2022): Last Assessment & Plan: Diet and lifestyle modifications strongly encouraged Follow up after discharged with PCP for further treatment options Intermittent ymjpyrswkosn27/12/2018 Overview (11/21/2022): Added automatically from request for surgery [id number] Last Assessment & Plan: Heparin drip initiated, pharmacy to manage per protocol ASA and Plavix started Cardiovascular surgeon consulted PT/OT evaluation and treatment Monitor labs, VS and telemetry as ordered Pain management Last Assessment & Plan: S/P Left Lower Extremity Angiogram with ballooning and stent 08/09/2018 Post op orders per surgeon DVT/GI prophylaxis Monitor labs, VS and telemetry as ordered Pain management Fdhztvtkx24/04/9004Naacmlxfp97/18/2014bdominal pain07/11/2014Hypertensive dtxubrmp97/22/2014 Overview (11/21/2022): Last Assessment & Plan: Resume home medications as ordered Follow up after discharged with PCP Labetalol PRN for SBP> 160 Monitor VS as ordered Last Assessment & Plan: Patient with history of hypertension. Blood pressure at this time 132/62. Plan: ?? Continue medications as prescribed. Disorder of lipid bpwvlefxpe96/27/2181Gepmexoss60/14/2014Chest pain08/30/2013 Coronary gwurjbkjnyrxkpm03/03/2014Mixed wtmbamxnczfgwg04/03/2014Dyspnea 08/30/2013Preinfarction qhfabjdt88/03/2014vascular necrosis of bone of hip 09/04/2011 Overview (11/21/2022): Right hip Herpes invcix2509/04/2011Pain of left lower ymkxkzzee18/08/2012 Overview (11/21/2022): Last Assessment & Plan: -Presented to [facility] 09/04/2018 as a transfer from [place] for second opinion regarding left lower extremity [...] in pain -Reports pain is uncontrolled with CARBURIZER Dilaudid pump, and pain does not decrease [...] Fernandez RN -Please call with questions Prostate sliujb0009/04/2011Chronic ischemic heart omefney48 Impotence of organic suhhdy39enign essential hypertension 07/04/2008 Overview (04/22/2024): Last Assessment [...] * ChemicalLifetime DoseAutomatic EntryManual EntryFluoro Time18.04 minutes0 saiedba34.04 minutesAir Kerma1,177.89 mGy0 mGy1,177.89 mGyDose Area Product 111,633 mGy-cm20 mGy-lw2734,633 mGy-cm2
--- OUTSIDE RECORDS SUMMARY | 2025-08-13 10:03 | XMS_ITS | Patient Health Record ---
Author Organization [facility] Symptom R [facility] Address [address] [place] [address] Support Name Relationship Address Phone Tristin Gray Guarantor Unknown [phone] Reason For Referral No Information Problems Problem Type SNOMED Code ICD Code Onset Dates Problem Status W/U Status Risk Notes Problem Pain in limb (27234020) Pain of left lowe r extremity (M79.605) Activeconfirmed Plan Of Treatment No Information Insurance Providers Payer Name Payer Address Payer Phone Subscriber Number Group Number Insured Name Patient Relationship to Insured Coverage Start Date Coverage End Date [employer] Man[employer] Medicare [address] [address] [place] [address] [id number] Tristin Gray Self - patient is the insured
--- OUTSIDE RECORDS SUMMARY | 2025-08-13 10:04 | XMS_ITS | Clinical Summary ---
Author Organization [facility] Address [address] [place] [address] Phone Care Team Providers Care Bill Recapitulation Clerk Name Role Phone Unavailable Primary Care [...]
--- OUTSIDE RECORDS SUMMARY | 2025-08-13 10:04 | XMS_ITS | Clinical Summary ---
Author Organization [facility] Address [address], [address] [place] [address] Care Team Providers Care Automotive Parts Specialist Name Role Phone Nikko Bird MD Primary Care Provider [phone] Allergies No known active allergies Medications MedicationSigDispense [...] DateDiagnosed DateChest pain in adult05/13/2024rteriosclerosis of coronary jtmzwg1705/13/2024 Overview (05/13/2024): Dr. Cee [place], saw for clearance Triple bypass, 2017 [facility] Secondary hypercoagulable state4Paroxysmal atrial fibrillation 4Chronic kidney disease due to jxnmrmcqbche14/13/2023PVD (peripheral vascular disease) with vfxukfvkwvtx19/13/2023 Overview (05/13/2024): Last Assessment & Plan: Patient is complaining of worsening symptoms and has had 2 Vascular surgeons Coronary artery disease involving coronary bypass graft of [place] heart without angina ybvxoxdt88/09/2019 Overview (05/13/2024): Last Assessment & Plan: Patient with remote coronary artery bypass grafting to 3 vessels. Patient denies chest pain at thistime. Peripheral arterial ibquvyq1608/10/2018 Overview (05/13/2024): Last Assessment & Plan: S/P [...] to be reduced (0.5) Atherosclerosis of coronary lpspzz9808/30/2013enign essential hypertension 07/04/2008 Overview (05/13/2024): Last Assessment [...] (1 standard drink = 0.6 oz pure alcohol)[facility] UtilitiesAnswerDate RecordedIn the past 12 months [...] homeless or living in a usp (including now)?No05/13/2024 Food InsecurityAnswerDate RecordedWithin the past 12 months, you worried that your food would run out before you got the money to buymore.Within the past 12 months, the food you bought just didn't last and you didn't have money to get more.Interpersonal Safety Domain Source: IP Abuse ScreeningAnswerDate RecordedPhysical xjsdpIkolkg93/16/2024Verbal abuseDenies 05/13/2024Emotional wgrecNglnet82/16/2024Financial htomeRzpuiv54/16/2024Sexual zpxnxUpbfcw21/16/2024Sex and Gender InformationValueDate RecordedSex Assigned at BirthNot on fileLegal OesYpgx2410/07/2012 2:47 PM ESTGender IdentityNot on file Sexual OrientationNot on file Last Filed Vital Signs Vital SignReadingTime TakenCommentsBlood Sujkewlh332/54005/14/2024 8:46 AM EDT Fxqui811605/14/2024 6:45 AM NFQPyllwvbmsdi57.2 ??C (97.2 ??F)05/14/2024 6:45 AM EDTRespiratory Vhmp013605/14/2024 6:45 AM EDTOxygen Ctliqwqylo91%05/14/2024 6:45 AM EDTInhaled Oxygen Concentration--Fflzsj477.5 kg (236 lb 15.9 oz)05/14/2024 5:30 AM IVAHzqvsd156 cm (6' 2.02 )05/13/2024 10:33 AM EDTBody Mass Index30.42 05/13/2024 10:33 AM EDT Plan of Treatment Health MaintenanceDue DateLast DoneCommentsDepression Vvrutl301Prostate Specific Antigen (PSA) Screening or Rstcwkrdcs97/09/1979Shingles vaccine (1 of 2)1989Respiratory Syncytial Virus (RSV) or age 60 yrs+ (1 - 1- dose 75+ series)2014nnual Wellness Visit (Medicare Advantage)08/28/2024 Flu vaccine (#1)510/05/2023, 05/31/2022, 06/21/2021, Additional history existsCOVID-19 Vaccine (2024- season)501/, 10/28/2020, 8652Siveri78/17/128596/4DTaP/Tdap/Td vaccine (2 - Td or Tdap) /10/2019Pneumococcal 50+ years FsfatsfIvtxhqlyo90/11/2021, 05/28/2020, 05/18/2015Hepatitis A vaccineAged OutNo longer eligible [...] AM EDT)ComponentValueRef RangeTest MethodAnalysis TimePerformed AtPathologist SignatureCholesterol, Iimgu0098 - 199 mg/dL 05/14/2024 6:13 AM EDTMERCY LABORATORIESComment: Cholesterol Guidelines: <200 Desirable 200-240 ??Borderline >240 Undesirable HDL41>40 mg/dL05/14/2024 6:13 AM EDTMERCY LABORATORIESComment: HDL Guidelines: <40 Undesirable 40-59 ?Borderline >59 Desirable LDL Mgvvvzmbtcy436 - 100 mg/dL05/14/2024 6:13 AM EDTMERCY LABORATORIESComment: LDL Guidelines: <100 Desirable 100-129 ?? Near to/above Desirable 130-159 ?? Borderline >159 Undesirable Direct (measured) LDL and calculated LDL are not interchangeable tests. Chol/HDL Ratio3. 6:13 AM EDTMERCY GPFDHLKPPTQAOuaycrsdasvat32<150 mg/dL05/14/2024 6:13 AM EDTMERCY LABORATORIESComment: Triglyceride Guidelines: <150 Desirable 150-199 ??Borderline 200-499 ??High >499 Very high Based on AHA Guidelines for fasting triglyceride, May 2012. KSOT92yd/dL05/14/2024 6:13 AM EDTMERCY LABORATORIESSpecimen (Source)Anatomical Location / LateralityCollection Method / VolumeCollection TimeReceived TimeBlood BLOOD SPECIMEN / Royhafr7705/14/2024 6:13 AM EDT05/14/2024 6:29 AM EDT Narrative Authorizing ProviderResult TypeResult StatusDanica Rama Merritt DECAL TRANSFERRER - CNPCHEMISTRY ORDERABLESFinal ResultPerforming OrganizationAddressCity/State/ZIP CodePhone Number [facility] [address] [place] [address], [facility] [phone] [facility] [address] [place], [place] [address] [phone] from Last 3 Months or Most Recently Relevant to Health Maintenance Insurance Advance Directives * Full Code (Latest Code Status on File) Date ActivatedDate InactivatedComments05/13/2024 1:14 AM05/14/2024 5:07 PM NameRelationshipHealthcare Agent RelationshipCommunicationJudy IsaacChildPrimary Decision Maker* Care Teams Team MemberRelationshipSpecialtyStart DateEnd Date Nikko Bird MD PCP - Pfgdaij23/19/13
--- OUTSIDE RECORDS SUMMARY | 2025-08-13 10:04 | XMS_ITS | Clinical Summary ---
Author Organization [facility] Address [address] [place] [address] Care Team Providers Care Crib Attendant Name Role Phone Nikko Bird MD Primary Care Provider [phone] System, Provider Not In Unavailable Unavaila ble Allergies Active AllergyReactionsCriticalityNoted QmekXspdmlbhWhmiykhyytm23/28/2019 Elevated blood pressure, GI intolerance/ nausea/vomiting GabapentinGI Uesogjjyrqw35/18/2025 Medications MedicationSigDispense QuantityRefillsLast FilledStart DateEnd DateStatus metoprolol [...] 30 tablet 03/21/2025tive naloxone (NARCAN) 4 mg/actuation [place] Administer 1 spray into one nostril for [...] of right legHematoma of arm, left, initial pohsgotac73/10/2023 Assessment & Plan (11/04/2022 7:47 AM EST): [...] pneumonia of left lower lobe of lung3Pulmonary sbubpm782PAD (peripheral artery disease)01/21/2022 Assessment & Plan (03/14/2025 [...] 2022 was known to be reduced (0.5) Scnyfbgqmx52/24/2022Gangrene of left foot10/04/2018Acute pain of right lower cxbmnwsqu30/10/2019 Assessment & Plan (09/07/2018 2:48 PM EST): -Presented to [facility] 09/04/2018 as a transfer from [place] for second opinion regarding left lower extremity [...] in pain -Reports pain is uncontrolled with VICE CHANCELLOR Dilaudid pump, and pain does not decrease [...] artery disease involving coronary bypass graft of eek heart without angina icczjhre17/09/2019 Assessment & Plan (03/14/2025 3:30 PM EDT): S/p 3v CABG in 2017 Asymptomatic Assessment & Plan (09/05/2018 8:45 AM EST): Patient with remote coronary artery bypass grafting to 3 vessels. Patient denies chest pain at thistime. Icqsderapedxdzcwqm67/09/2019 Assessment & Plan (09/05/2018 8:46 AM EST): Patient with history of hypercholesteremia. Plan: ?? Continue high intensity statin medication ?? Risk factor modification. Essential reupjxzxjlsq71/09/2019 Assessment & Plan (09/05/2018 8:47 AM EST): [...] a goal BMI <30. Critical lower limb xlultvnf67/08/2019 Assessment & Plan (03/15/2025 9:12 AM EDT): Presents from Dr. 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 Pt s/p LLE critical limb ischemia [place] class 4 rest pain with distal discoloration to his toes. Pt is s/p L pop angioplasty with stent placement 08/09 at [facility] in [place], [place]. Ptwas placed on Xarelto and ASA. [...] medication. ?? Will sign off Encounters DateTypeDepartmentCare TwxaNqgwnezwfzo81/21/2025 1:06 PM EDT - 06/17/2025 11:59 PM EDTHospital Encounter [facility] [address] [place] [address] Gracy Millan MD Discharge Disposition: Home06/06/2025Orders Only [facility] [phone] Ludivina Garcia RN PVD (peripheral vascular disease) (Primary Dx)06/05/2025 12:51 PM EDT - 06/05/2025 11:59 PM EDTHospital Encounter [facility] [address], [address] [place] [address] [place] [address] Gracy Millan MD Discharge Disposition: Home06/02/2025Orders Only [facility] [phone] Ludivina Garcia RN PVD (peripheral vascular disease) (Primary Dx)from Last 3 Months Immunizations ImmunizationAdministration DatesNext DueINFLUENZA IIV3 65+YO FLUAD06/18/2019 Influenza, Injectable, Jjscgfyfrqie46/25/2017Influenza, high dose seasonal 06/06/2018,05/18/2015Pneumococcal Conjugate 13-Valent (Prevnar 13)05/18/2015 Family History Medical HistoryRelationCommentsProstate cancerBrotherHeart diseaseFatherNo Known ProblemsMotherCancerPaternal AuntRelationStatusCommentsBrotherFatherMother Paternal Aunt Social History Tobacco UseTypesPacks/DayYears UsedDateSmoking Tobacco: NeverSmokeless Tobacco: NeverAlcohol UseStandard Drinks/WeekCommentsNot Currently0 (1 standard drink = 0.6 oz pure alcohol)[facility] UtilitiesAnswerDate RecordedIn the past 12 months [...] Recorded Sex Assigned at BirthNot on fileLegal WrmSncw2312/21/2013 2:37 PM EDTGender IcktnojlPgyu9603/2019 8:23 PM ESTSexual IwbfjpwlhdqNhoqloih15/08/2019 8:23 PM EST Last Filed Vital Signs Vital SignReadingTime TakenCommentsBlood Auapvvhz674/72004/23/2025 2:36 PM EDT Nymob8142 2:36 PM HYGBbwjahhdoup13.7 ??C (98.1 ??F)03/21/2025 2:58 PM EDTRespiratory Qvuy9123 2:30 PM EDTOxygen Fibufersvc31%04/23/2025 2:30 PM EDTInhaled Oxygen Concentration--Ptlauy128.1 kg (245 lb)04/23/2025 2:30 PM CJVAnnnfk154 cm (6' 2 )04/23/2025 2:30 PM EDTBody Mass Index31.46004/23/2025 2:30 PM EDT Plan of Treatment Health MaintenanceDue DateLast DoneCommentsTetanus/Diphtheria/Pertussis (1 - Tdap)1958Zoster Vaccines (1 of 2)1989Falls Risk Jrgysgpptu40/09/2004 RSV Vaccines (1 - 1-dose 75+ series)2014Pneumococcal Vaccine: 50+ Years (2 of 2 - PPSV23, PCV20, or PCV21)Medicare Wellness Visit /3COVID-19 Vaccine ( - season)/, 10/28/2020, 1Depression Screening/Follow-Up (PHQ-2/9)03/15/2026 03/15/2025Influenza BatofevSqhzovxnq95/14/2025, 06/18/2019, 06/06/2018, Additional history existsHIB VaccinesAged OutNo [...] LotHemostat 2 X 4in Surgicel Fibrillar - [id number] Implanted:Qty: 1 [facility] 09/07/[facility]: AmiAVIDJSG98/30/[id number] / / [id number] 2 X 4in Surgicel Fibrillar - Sna Implanted:Qty: 1 on 03/17/2025 by [facility]ETHICON05/27/[id number] / NA / 105KURSealant 10ml Hemostatic Matrix Fast Prep Floseal W/Recothrom - [id number] Implanted:Qty: 1 on 03/17/2025 by [facility]Right: ArterialBAXTER [id number]/12/2026 [id number] / / [id number] Procedures Procedure NamePriorityDate/TimeAssociated DiagnosisCommentsUS DUPLEX BYPASS GRAFT LE LIMITED WDIATMnjpjfd55/21/2025 2:15 PM EDT PVD (peripheral vascular disease) US ANKLE/BRACHIAL INDICES EXTREMITY WZDIUSLFuoymbq21/09/2025 1:29 PM EDT PVD (peripheral vascular disease) from Last 3 Months Results * US Duplex Bypass Graft Right LE (06/17/2025 2:15 PM EDT)Specimen (Source) Anatomical Location / LateralityCollection Method / VolumeCollection Time Received Time06/17/2025 1:26 PM EDT Narrative FUJI SYNAPSE CV - 06/17/2025 2:54 PM EDT Patient Info Name: ? Tristin Gray Age: ? 85 years : ? 1940 Gender: ? Male Accession #: ? [id number] Exam Date: ? 06/17/2025 1:26 PM Patient Status: ? OUTPATIENT Site Location: ? Indications ?I73.9 - Peripheral vascular disease, ??unspecified Procedure Description ??[id number] Duplex scan of lower extremity arteries or arterial bypass grafts using B-mode, color and spectral Doppler; unilateral or limited study. Helmet Coverer: ? Gail Foy BS, RVS Staff Ordering Provider: ? Gracy Millan MD, RPVI Conclusions ??* Difficult exam [...] MD - 06/17/2025 Patient Info Name: Tristin Gary Age: 85 years : 1940 Gender: Male Exam Date: 06/17/2025 1:26 PM Patient Status: OUTPATIENT Site Location: Indications I73.9 - Peripheral vascular disease, unspecified Procedure Description [id number] Duplex scan of lower extremity arteries or arterial bypassgrafts using B-mode, color and spectral Doppler; unilateral or limited study. Helmet Coverer: Gail Foy BS, RVS Staff Ordering Provider: [...] MDCV VASCULAR ORDERABLESFinal ResultPerforming OrganizationAddressCity/State/ZIP CodePhone Number [facility] CV * Ultrasound ankle / brachial indices extremity complete (06/05/2025 1:29 PM EDT)Specimen (Source)Anatomical Location / LateralityCollection Method / VolumeCollection TimeReceived Time06/05/2025 1:16 PM EDT Narrative [facility] CV - 06/05/2025 2:48 PM EDT Patient Info Name: ? Tristin Gray Age: ? 85 years : ? 1940 Gender: ? Male Accession #: ? [id number] Exam Date: ? 06/05/2025 1:16 PM Patient Status: ? OUTPATIENT Site Location: ? Indications ?I73.9 - PVD (peripheral vascular disease) Procedure Description ??59857 Limited bilateral noninvasive physiologic studies of upper or lower extremity arteries with bidirectional Doppler/PVR waveform analysis at 1-2 levels. Helmet Coverer: ? Ginette Gonzalez RDMS, RVS Staff Ordering Provider: ? Gracy Millan MD, [facility] Conclusions ??* Right. ??* Right ankle brachial [...] to amputation. ??* Previous YAMILE done at [place]- Right: 0.96 Left: 0.57. Recommendations ??* This [...] Segmental BP RIGHT Brachial A mmH RIGHT ACTING INSTRUCTOR mmH RIGHT ACTING INSTRUCTOR Index: 0.90 RIGHT DPA mmH RIGHT DPA Index: 0.80 RIGHT YAMILE Index: 0.90 LEFT Brachial A mmH LEFT ACTING INSTRUCTOR Index: 0.65 LEFT ACTING INSTRUCTOR mmH LEFT DPA Index: 0.80 LEFT DPA mmH LEFT YAMILE Index: 0.80 Doppler RIGHT ACTING INSTRUCTOR Waveform: Multiphasic RIGHT DPA Waveform: Multiphasic LEFT ACTING INSTRUCTOR Waveform: Multiphasic LEFT DPA Waveform: Multiphasic , PVR RIGHT Ankle Grade: Abnormal RIGHT Transmetarsal Grade: Abnormal RIGHT Digit (PPG) Grade: Abnormal LEFT Ankle Grade: Abnormal Prior Interventions ??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 Report Signatures Finalized by Neetu De La Rosa ??MD on 06/05/2025 02:48 PM Procedure Note Neetu De La Rosa MD - 06/05/2025 Patient Info Name: Tristin Gray Age: 85 years : 1940 Gender: Male Exam Date: 06/05/2025 1:16 PM Patient Status: OUTPATIENT Site Location: Indications I73.9 - PVD (peripheral vascular disease) Procedure Description 79388 Limited bilateral noninvasive physiologic studies of upper orlower extremity arteries with bidirectional Doppler/PVR waveform analysis at1-2 levels. Helmet Coverer: Ginette Gonzalez RDMS, RVS Staff Ordering Provider: [...] to amputation. * Previous YAMILE done at [facility]- Right: 0.96 Left: 0.57. Recommendations * This [...] Segmental BP RIGHT Brachial A mmH RIGHT ACTING INSTRUCTOR mmH RIGHT ACTING INSTRUCTOR Index: 0.90 RIGHT DPA mmH RIGHT DPA Index: 0.80 RIGHT YAMILE Index: 0.90 LEFT Brachial A mmH LEFT ACTING INSTRUCTOR Index: 0.65 LEFT ACTING INSTRUCTOR mmH LEFT DPA Index: 0.80 LEFT DPA mmH LEFT YAMILE Index: 0.80 Doppler RIGHT ACTING INSTRUCTOR Waveform: Multiphasic RIGHT DPA Waveform: Multiphasic LEFT ACTING INSTRUCTOR Waveform: Multiphasic LEFT DPA Waveform: Multiphasic , [...] Advance Directives For more information, please contact: [phone] TypeDate RecordedPatient RepresentativeExplanationPower of Attorney10/13/2018 9:03 PMRECEIVED [...] Team MemberRelationshipSpecialtyStart DateEnd Date Nikko Bird MD [address] [place] [address] PCP - GeneralFamily Medicine09/04/18 System, Provider Not In Cardiologist11/09/22
--- OUTSIDE RECORDS SUMMARY | 2025-08-13 10:04 | XMS_ITS | Clinical Summary ---
Author Organization [facility] Healthcare Address [address] [place] [address] Care Team Providers Care Domestic Travel Consultant Name Role Phone Nikko Bird MD Unavailable Nikko Bird MD Primary Care Provider [phone] Elaine Saab LPN Unavailable Allergies Active AllergyReactionsCriticalityNoted XcyiOjdwcyjvIgakgibudhhXxxycce68/13/2023 GabapentinGI hpkqzkxdybu90/18/4762Cqxiquzzww56/05/2025 Other Reaction(s): Weakness Medications MedicationSigDispense QuantityRefillsLast FilledStart DateEnd DateStatus aspirin 81 MG EC tablet Take 81 mg by mouth in the morning.Active atorvastatin (Lipitor) 80 MG tablet 4Active fluticasone (Flonase) 50 MCG/ACT nasal spray Indications:Seasonal [...] needed for chest pain 90 tablet 5Active rivaroxaban (Xarelto) 2.5 MG tablet Indications:Paroxysmal atrial [...] 17 g by mouth in the morning.5Active Abrgqsh-Yyhuxvurucj-Tprterfrrs (Breztri Aerosphere) 160-9-4.8 MCG/ACT aerosol Indications:Pneumonia due to infectious organism, unspecified laterality, unspecified part of lungInhale 1 puff in the morning and at noon 18 g 5Active tamsulosin (Flomax) 0.4 MG 24 hr capsule Indications:History of prostate cancer,Urinary hesitancyTAKE 1 CAPSULE BY MOUTH EVERY MORNING AND TAKE 1 CAPSULE BY MOUTH AT BEDTIME 180 capsule 5Active oxyCODONE-acetaminophen (Percocet) 5-325 MG tablet Indications:PVD (peripheral vascular disease) with claudicationTake 1 tablet by mouth every 6 (six) hours if needed for severe pain or moderate pain 120 tablet 5Active losartan (Cozaar) 50 MG tablet Indications:Benign essential hypertensionTAKE 1 TABLET BY MOUTH DAILY 100 tablet 311/5Active Menthol-Zinc Oxide (Calmoseptine) 0.44-20.6 % ointment Indications: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HCC)APPLY TO AFFECTED AREA(S) TOPICALLY EVERY 6 HOURS IF NEEDED ( BARRIER CREAM) 113 g 5Active furosemide (Lasix) 20 MG tablet Indications:Benign essential hypertensionTAKE 1 TABLET EVERY MORNING 90 tablet 5Active losartan (Cozaar) 50 MG tablet Indications:Benign essential hypertensionTake 1 tablet (50 mg) by mouth Daily 100 tablet 312//[id number]/Discontinued furosemide (Lasix) 20 MG tablet Indications:Benign essential hypertensionTAKE 1 TABLET EVERY MORNING 90 tablet //[id number]/Discontinued Menthol-Zinc Oxide (Calmoseptine) 0.44-20.6 % ointment Indications: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HCC)Apply 1 Application topically every 6 (six) hours if needed (Barrier Cream) 100 g 310/98740909/28/2024Discontinued Active Problems ProblemNoted DateDiagnosed DateAcute eczematoid otitis externa of right ear 06/10/2025Rhinovirus jksupoava79/23/1559Acrtyq02/12/7388Bldawupbta08/12/2025 Opioid dependence, awzvrdmprttkp61/05/2025 Overview (05/02/2025): Noted by [facility] last documented on [id number] Assessment & Plan [...] Ischemic toe ulcer, right, with fat layer xvtyvoz0704/14/2025 Assessment & Plan (04/14/2025 1:37 PM EDT): Needs to finish antibiotic and needs follow up with podiatry Osteomyelitis of right foot04/14/2025 Assessment & Plan (04/14/2025 1:45 PM EDT): Will get stat MRI Will do stat Podiatry referral If worsens go to ER Currently no drainage Carotid stenosis, asymptomatic, rwomtjaes64/18/2025Unspecified chronic rtpepqjnvv14/10/2025Acquired absence of left foot11/04/2024 Assessment & Plan [...] EDT): resolved Hx of CABG05/28/2024Secondary hypercoagulable state ([facility])4Pulmonary hypertension, ldlewlbighm34/30/2024 Assessment & Plan (11/04/2024 11:25 AM EDT): Has water pills From COPD Other thrombophilia ([facility])03/21/2024 Assessment & Plan (03/21/2024 3:10 PM EDT): Has blood thinner Medicare annual wellness visit, bmjivdzcdf21/10/2023 Assessment & Plan (06/10/2025 10:25 AM EDT): [...] do 6 month regular US Abnormal radiographic rbggaqvdwzi18/13/2023hronic obstructive pulmonary disease, fbjksdytmmh81/13/2023 Assessment & Plan (11/04/2024 11:25 AM EDT): From second hand smoke Chronic diastolic (congestive) heart hnzbknd4904/09/2023 Assessment & Plan (11/04/2024 11:25 AM EDT): Foot swells Oenxljcft88/13/2023sthmatic plfntxewad63/13/2023therosclerotic heart disease of mi'kmaq coronary artery without angina ukybjvyg69/13/2023arotid artery eayydmnv92/13/2023 Assessment & Plan (06/06/2023 11:20 AM EDT): Getting Carotid dopplers Chronic kidney disease due to fxioldexifzi18/13/2023Slow transit constipation 04/09/2023Elevated erythrocyte sedimentation rate04/09/2023Left sciatic nerve pain04/09/20236034Gyculjtiws91/13/2023Other chronic pain04/09/2023 Assessment & Plan (08/12/2024 1:41 [...] for this patient. Paresthesia of skin04/09/2023aroxysmal atrial cfwyomepvzcq63/13/2023VD (peripheral vascular disease) with xefxrvecihyl29/13/2023 Assessment & Plan (04/14/2025 1:37 PM EDT): [...] Pain meds effective Pneumonia due to infectious lujvihvc13/13/2023 Assessment & Plan (05/20/2025 1:21 PM EDT): Rinse out mouth with water after use Needs CT scan after a month Polymyalgia rheumatica ([facility])04/09/2023rimary osteoarthritis of right hip 04/09/2023Seasonal allergic /13/2023 Assessment & Plan (11/04/2024 11:23 AM EDT): [...] watch for any sugar elevations. Solitary pulmonary xkuhkw6304/09/2023Stage 3a chronic kidney yqrqfan1704/09/2023 Acquired absence of unspecified foot04/09/2023 Assessment & Plan (11/04/2024 11:22 AM EDT): S/p amputation but has prosthesis Assessment & Plan (02/05/2024 3:03 PM EDT): Se[place] Vascular doctor this [place] in [place] Rdccpunc67/25/2023Lumbosacral spondylosis without ytczjrsacd97/25/2023 Assessment & Plan (04/11/2023 11:31 AM EDT): [...] was reviewed for this patient. Mitral valve mczrsalvtgfon52/27/4665Lqmxbgw62/27/2023osterior tibial tendinitis of right leg11/07/2022Thoracic aortic aneurysm without lbkekxv1101/12/2022/P total hip bqsmrjdrsmau37/18/2021ortic valve lzsyadrvciwjg23/07/2021lass 1 obesity with body mass index (BMI) [...] for a goal BMI <30. 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 He has consulted Dr. Millan for a possible tibial bypass. Pt s/p LLE critical limb ischemia Deann class 4 rest pain with distal discoloration to histoes. Pt is s/p L pop angioplasty with stent placement 08/09 at [facility] in [place], [place]. Pt was placed on Xarelto and [...] pop angioplasty with stent placement 08/09 at [facility] in [place], [place]. Pt was placed on Xarelto and [...] long as possible Claudication of right lower zuclcbymh47/12/2018 Overview (06/05/2023): Added automatically from request for surgery [id number] Last Assessment & Plan: Heparin drip initiated, [...] management Added automatically from request for surgery [id number] Last Assessment & Plan: Heparin drip initiated, pharmacy to manage per protocol ASA and Plavix started Cardiovascular surgeon consulted PT/OT evaluation and treatment Monitor labs, VS and telemetry as ordered Pain management Last Assessment & Plan: S/P Left Lower Extremity Angiogram with ballooning and stent 08/09/2018 Post op orders per surgeon DVT/GI prophylaxis Monitor labs, VS and telemetry as ordered Pain management Viaazviip94/04/2016Disorder of lipid nunbhkoajl28/27/9738Igeompcqt16/14/2014 Chest pain in adult08/30/2013Mixed xlyxtsvsrzseju53/03/9527Lqxflnh32/03/2014 Preinfarction veyyeque30/03/2014Malignant neoplasm of nhynqmjd01/25/2011 Assessment & Plan (11/04/2024 11:24 AM EDT): No longer sees urology. S/p seeds implant in 2009 Assessment & Plan (03/21/2024 3:10 PM EDT): Seen in November by Urologist and released from Care Benign essential jfupopdohraj66/07/2008 Assessment & Plan (03/21/2024 3:04 PM EDT): [...] the importance of taking them as prescribed. [employer] handouts Assessment & Plan (09/19/2023 10:45 AM [...] the importance of taking them as prescribed. [employer] handouts Assessment & Plan (06/06/2023 11:20 AM [...] the importance of taking them as prescribed. [employer] handouts Assessment & Plan (04/11/2023 11:30 AM [...] prescribed. DASH diet handouts Chronic ischemic heart ihlnxpa6807/04/2008Impotence of organic rsmrvc5107/04/2008 Resolved Problems ProblemNoted DateDiagnosed DateResolved DateAcute cystitis without hematuria Assessment & Plan (03/21/2024 3:09 PM EDT): Add Probiotic to help replenish the good bacteria that are destroyed by the Antibiotics Florastor Florajen Align or try Activia in Yogurt Probiotics reduce the risk of antibiotic induced diarrhea Flu vaccine needNausea1cute exacerbation of chronic obstructive pulmonary zpnvedi37ataract04/09/2023 04/26/20248692Vogzzbllppvr63Sinusitis Assessment & Plan (09/19/2023 10:53 AM EST): [...] Dr. Messina as needed if symptoms persist Tanorwnugh03Gangrene of left foot Cemrtvakmeeuuqbwap78/09/201908/30/2024 Overview (06/05/2023): Last Assessment & Plan: Patient [...] with PCP for further treatment options Pure nanyfvjvfrruxwwordlo53/14/201808/30/2024 Overview (06/05/2023): Last Assessment & Plan: Resume home medications Follow up after discharged with PCP Last Assessment & Plan: Resume home medications Follow up after discharged with PCP Dajmmvklu634Abdominal pain4Avascular necrosis of bone of hip Overview (06/05/2023): Right hip Right hip Herpes pakpps254Pain of left lower mascprldf06/08/2012 04/26/2024 Overview (06/05/2023): Last Assessment & Plan: -Presented to [facility] 09/04/2018 as a transfer from [place] for second opinion regarding left lower extremity pain and discoloration that was present two days prior to admit there on 08/30. s/p LLE angio with stent placement 08/09 -[facility]ARx reviewed, patient prescribed Gabapentin 200 mg TID (last filled #540 tabs for 90 days 07/12/18) and Percocet 5/325 mg (#28 tabs for 7 days 08/23/18) written by Dr. Nikko Bird - Patient found lying in bed, writhing in pain -Reports pain is uncontrolled with INSTRUMENT ROOM TECHNICIAN Dilaudid pump, and pain does not decrease [...] Assessment & Plan: -Presented to [facility] 09/04/2018 as a transfer from [place] for second opinion regarding left lower extremity [...] in pain -Reports pain is uncontrolled with INSTRUMENT ROOM TECHNICIAN Dilaudid pump, and pain does not decrease [...] RN -Please call with questions Encounters DateTypeDepartmentCare SousTjqmdfnbgtm46/15/2025Refill [facility] [address] [facility] [address] [place] [address] Nikko Bird MD Benign essential outkohppzibb26/26/2025Refill [facility] [address] [facility] [address] [place] [address] Zoë King PA 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HCC)07/22/2025Refill [facility] [address] [facility] [address] [place] [address] Nikko Bird MD Benign essential airieckyjhky14/17/2025Refill [facility] [address] [facility] [address] [place] [address] Nikko Bird MD PVD (peripheral vascular disease) with eobuggzcqerd87/30/2025[facility] [address] [facility] [address] [place] [address] Nikko Bird MD History of prostate cancer; Urinary fsoiawmbi59/27/2025Patient Outreach [facility] [address] [place] [address] Elaine Saab LPN 06/18/2025linisync Result Encounter [facility] External Department Unsolicited Provider, Generic External Data 06/12/2025bstract [facility] [address] [facility] [address] [place] [address] Nikko Bird MD 06/12/2025bstract [facility] [address] [facility] [address] [place] [address] Nikko Bird MD 06/11/2025Patient Outreach [facility] [address] [place] [address] Elaine Saab LPN 06/10/2025 10:30 AM EDTOffice Visit [facility] [address] [facility] [address] [place] [address] Nikko Bird MD Routine general medical examination at health care facility (Primary Dx); Screening for lipid disorders; Medicare annual wellness visit, subsequent; 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HCC); Encounter for immunization; Opioid dependence, uncomplicated (HCC); Acute eczematoid otitis externa of right ear06/10/2025amboo flowsheet [facility] [address] [facility] [address] [place] [address] Nikko Bird MD 06/10/20256795Ehcywc92/07/2025Patient Outreach [facility] [address] [place] [address] Elaine Saab ACCOUNT SERVICES COORDINATOR 05/29/2025Refill [facility] [address] [facility] [address] [place] [address] Nikko Bird MD PVD (peripheral vascular disease) with ywgiwyfsjtxz89/29/2025Telephone [facility] [address] [place] [address] AlmaElaine ACCOUNT SERVICES COORDINATOR 05/26/2025Patient Outreach [facility] [address] [place] [address] SaabElaine ACCOUNT SERVICES COORDINATOR 05/21/2025Patient Outreach [facility] [address] [place] [address] AlmaElaine ACCOUNT SERVICES COORDINATOR 05/20/2025 1:00 PM EDTOffice Visit [facility] [address] [facility] [address] [place] [address] Nikko Bird MD Pneumonia due to infectious organism, unspecified laterality, unspecified part of lung (Primary Dx)05/20/20257903Kfitjv22/17/2025Patient Outreach [facility] [address] [place] [address] SaabElaine [facility] 05/14/2025bstract [facility] [address] [facility] [address] [place] [address] Nikko Bird MD from Last 3 Months Immunizations ImmunizationAdministration DatesNext DueInfluenza, High Dose Seasonal, Preservative Free06/10/2025,06/21/2021,06/02/2020,06/06/2018,05/18/2015 Influenza, High-dose Seasonal, Quadrivalent, Preservative Free08/12/2024, 06/06/2023,05/31/2022,06/06/2018Influenza, injectable, ycteemrupifk82/25/2017 Influenza, injectable, quadrivalent, preservative free07/11/2016Influenza, seasonal, /01/2020Influenza, trivalent, vumawdpmbd02/22/2019 Pneumococcal Conjugate PCV 131,05/18/2015Pneumococcal Polysaccharide QDHU50097828Mhsd13/03/2020 Family History Medical HistoryRelationNameCommentsStrokeOtherFamily historyRelationNameStatus CommentsFatherDeceasedMotherDeceasedOtherFamily historySiblingDeceasedSister Deceaseddeceased from covid Social History Tobacco UseTypesPacks/DayYears UsedDateSmoking Tobacco: NeverSmokeless Tobacco: Never Tobacco Cessation:Counseling Given: Yes Alcohol UseStandard Drinks/WeekCommentsNot Currently0 (1 standard drink = 0.6 oz pure alcohol)Coffee 1-2 cups per cquL8649 Health LiteracyAnswerDate RecordedHow often do you need [...] at all 06/21/2024HQ-2AnswerDate RecordedPatient Health Questionnaire-2 Score0 06/10/2025[facility] - Occupational Stress QuestionnaireAnswerDate [...] homeless or living in a fdc (including now)?No06/21/2024Sex and Gender InformationValueDate RecordedSex Assigned at BirthNot on fileLegal TiqSjzu3611/09/2022 7:18 PM EDT Gender IdentityNot on fileSexual OrientationNot on file Last Filed Vital Signs Vital SignReadingTime TakenCommentsBlood Bfawuaxb943/6806/10/2025 10:17 AM EDT Whcvm863906/10/2025 10:17 AM VMLGahnhuheqyz48 ??C (98.6 ??F)05/02/2025 1:04 PM EDT Respiratory Btrv880205/02/2025 1:04 PM EDTOxygen Yhotnutqpe20%06/10/2025 10:17 AM EDTInhaled Oxygen Concentration--Fxhiwo384 kg (243 lb)06/10/2025 10:17 AM EDT Ekhfgl194 cm (6' 2 )06/10/2025 10:17 AM EDTBody Mass Index31. 10:17 AM EDT Plan of Treatment Health MaintenanceDue DateLast DoneCommentsCOVID-19 Vaccine ( season) 5009/09/2021, 09/09/2021, 10/28/2020, Additional history existsMedicare Annual Wellness (AWV), 04/26/2024, 06/06/2023neumococcal Vaccine: 65+ FzvcgBsjtnzftd19/11/2021, 05/28/2020, 05/18/2015Influenza Vaccine Zkcdfalwb20/14/2025, 08/12/2024, 06/06/2023, Additional history exists Procedures Procedure NamePriorityDate/TimeAssociated DiagnosisCommentsLIPID PANELRoutine 06/23/2025 8:46 AM EDT Screening for lipid disorders Medicare annual wellness visit, subsequent ANAEROBIC CWUVMUERgtjzcu32/22/2025 11:10 AM EDT FUNGUS VWZPQRjirwxy58/22/2025 11:10 AM EDT FUNGUS (MYCOLOGY) VWLVPYLZsjvusu41/22/2025 11:10 AM EDT GRAM STAIN RHLJJKHbyfovg00/22/2025 11:10 AM EDT AEROBIC HUUVFYAYxrfoob75/22/2025 11:10 AM EDT ACID FAST PECIZYMMeuxfjv94/22/2025 11:10 AM EDT ACID FAST IGYATMiskhqs83/22/2025 11:10 AM EDT AFB SPECIMEN TNVWTCDMKSRydlsxm33/22/2025 11:10 AM EDT from Last 3 Months Results * Lipid panel (06/23/2025 8:46 AM EDT)ComponentValueRef RangeTest MethodAnalysis TimePerformed AtPathologist SignatureCHOLESTEROL, OUGAN692<200 mg/dLQUESTHDL ALRVGJGCKUO89> OR = 40 mg/hOFDMAABSOVYBVVPVHLH94<150 mg/dLQUESTLDL CHOLESTEROL 61mg/dL (calc)QUESTComment: Reference range: <100 Desirable range <100 mg/dL for primary prevention; <70 mg/dL for patients with CHD or diabetic patients with > or = 2 CHD risk factors. LDL-C is now calculated using the José Manuel-More calculation, which is a validated novel method providing better accuracy than the Friedewald equation in the estimation of LDL-C. José Manuel JOSEPH et al. SHANTAL. 2013;310(19): 3397-6477 (http://education.[employer].DocLogix/faq/AEN725) CHOL/HDLC RATIO2.9<5.0 (calc)QUESTNON HDL HQNOIIHAVZM56<130 mg/dL (calc)QUEST Comment: For patients with diabetes plus 1 major ASCVD risk factor, treating to a non-HDL-C goal of <100 mg/dL (LDL-C of <70 mg/dL) is considered a therapeutic option. Specimen (Source)Anatomical Location / LateralityCollection Method / Volume Collection TimeReceived TimeBloodVenous blood specimen / Fzfwytu2306/23/2025 8:46 AM EDT1 3:23 PM EDT Narrative [facility] - 06/23/2025 10:42 PM EDT FASTING:YES FASTING: YES Resulting Agency Comment Performing Organization Information ?Site ID: [id number] ?Name: [facility] ?Address: [address] [place] [address], [address] [place] [id number] ?Director: Gene Liang MD Authorizing ProviderResult TypeResult StatusNikko Moraa IDLAB BLOOD ORDERABLES Final ResultPerforming OrganizationAddressCity/State/ZIP CodePhone Number [facility] * ANAEROBIC CULTURE (06/18/2025 [...] 11:10 AM EDT1 1:19 PM EDT Narrative [facility] - 06/25/2025 1:08 PM EDT Authorizing ProviderResult TypeResult StatusGeneric External Data ProviderLAB BLOOD ORDERABLESFinal ResultPerforming OrganizationAddressty/State/ZIP Code Phone Number [facility] * GRAM STAIN RESULT (06/18/2025 11:10 AM EDT)ComponentValueRef RangeTest Method Analysis TimePerformed AtPathologist SignatureGRAM STAIN RESULT ??Gram Stain Result TBHGRAM STAIN RESULTFew white blood cells.TBHGRAM STAIN RESULTTBHGRAM STAIN RESULTRare gram negative rods.TBHGRAM STAIN RESULTPerformed at: - [facility] DenvilleTBHGRAM STAIN [id number] [place], [place] [id number] STAIN RESULTLab Director: Jasper Jean Baptiste PhD, Phone: [phone] (Source) Anatomical Location / LateralityCollection Method / VolumeCollection Time Received Time06/18/2025 11:10 AM EDT1 1:19 PM EDT Narrative [facility] - 06/25/2025 1:08 PM EDT Authorizing ProviderResult TypeResult StatusGeneric External Data ProviderM[facility] BLOOD ORDERABLESFinal ResultPerforming OrganizationAddressty/State/ZIP Code Phone Number [facility] * FUNGUS STAIN (06/18/2025 11:10 AM EDT)ComponentValueRef RangeTest Method Analysis TimePerformed AtPathologist SignatureFUNGUS STAIN ??Fungus Stain TBHFUNGUS STAINKOH/Calcofluor preparation: no fungus observed.TBHSpecimen (Source)Anatomical Location / LateralityCollection Method / VolumeCollection TimeReceived Time06/18/2025 11:10 AM EDT1 1:19 PM EDT Narrative [facility] - 07/17/2025 10:12 AM EST Authorizing ProviderResult TypeResult StatusGeneric External Data ProviderLAB BLOOD ORDERABLESFinal ResultPerforming OrganizationAddressCity/State/ZIP Code Phone Number [facility] * ACID FAST CULTURE (06/18/2025 11:10 AM EDT)ComponentValueRef RangeTest Method Analysis TimePerformed AtPathologist SignatureACID FAST CULTURE ??Acid Fast Culture ?Specimen has been received and testing has been initiated. TBHACID FAST CULTURENegativeTBHACID FAST CULTURENo acid fast bacilli isolated after 6 weeks.TBHACID FAST CULTUREPerformed at: [facility] ArborTBHACID FAST [id number] [place], [place] [id number] FAST CULTURELab Director: Jasper Jean Baptiste PhD, Phone: [phone] (Source)Anatomical Location / LateralityCollection Method / VolumeCollection TimeReceived Time06/18/2025 11:10 AM EDT1 1:19 PM EDT Narrative [facility] - 08/01/2025 1:09 PM EST Authorizing ProviderResult TypeResult StatusGeneric External Data ProviderLAB BLOOD ORDERABLESFinal ResultPerforming OrganizationAddressCity/State/ZIP Code Phone Number [facility] * FUNGUS (MYCOLOGY) CULTURE (06/18/2025 11:10 AM EDT)ComponentValueRef RangeTest MethodAnalysis TimePerformed AtPathologist SignatureFUNGUS (MYCOLOGY) CULTURE ??Fungus (Mycology) Culture TBHFUNGUS (MYCOLOGY) CULTURECulture Report:TBHFUNGUS (MYCOLOGY) CULTUREThe specimen submitted for fungus culture has been received andTBHFUNGUS (MYCOLOGY) CULTUREculture has been initiated.TBHFUNGUS (MYCOLOGY) CULTURENo yeast or mold isolated after 4 weeks.TBHFUNGUS (MYCOLOGY) CULTUREPerformed at: [facility] ArborTBHFUNGUS (MYCOLOGY) [id number] [place], [place] [id number] FUNGUS (MYCOLOGY) CULTURELab Director: Jasper Jean Baptiste PhD, Phone: [phone] TBHSpecimen (Source)Anatomical Location / LateralityCollection Method / Volume Collection TimeReceived Time06/18/2025 11:10 AM EDT1 1:19 PM EDT Narrative [facility] - 07/17/2025 10:12 AM EST Authorizing ProviderResult TypeResult StatusGeneric External Data ProviderLAB BLOOD ORDERABLESFinal ResultPerforming OrganizationAddressty/State/ZIP Code Phone Number [facility] * ACID FAST SMEAR (06/18/2025 11:10 AM EDT)ComponentValueRef RangeTest Method Analysis TimePerformed AtPathologist SignatureACID FAST SMEAR ??Acid Fast Smear ?Negative TBHSpecimen (Source)Anatomical Location / LateralityCollection Method / Volume Collection TimeReceived Time06/18/2025 11:10 AM EDT1 1:19 PM EDT Narrative [facility] - 08/01/2025 1:09 PM EST Authorizing ProviderResult TypeResult StatusGeneric External Data ProviderLAB BLOOD ORDERABLESFinal ResultPerforming OrganizationAddressty/State/ZIP Code Phone Number [facility] * AFB SPECIMEN PROCESSING (06/18/2025 11:10 AM EDT)ComponentValueRef RangeTest MethodAnalysis TimePerformed AtPathologist SignatureAFB SPECIMEN PROCESSING ??AFB Specimen Processing TBHAFB SPECIMEN PROCESSINGTissue GrindingTBHSpecimen (Source)Anatomical Location / LateralityCollection Method / VolumeCollection TimeReceived Time06/18/2025 11:10 AM EDT1 1:19 PM EDT Narrative [facility] - 08/01/2025 1:09 PM EST Authorizing ProviderResult TypeResult StatusGeneric External Data ProviderLAB BLOOD ORDERABLESFinal ResultPerforming OrganizationAddressty/State/ZIP Code Phone Number [facility] from Last 3 [place] [address] Care Teams Team MemberRelationshipSpecialtyStart DateEnd Date Nikko Bird MD [address] [facility] [address] [place] [address] PCP - [facility]08/28/17 Nikko Bird MD [address] [facility] [address] [place] [address] PCP - [facility]03/09/23 Elaine Saab LPN [address] [facility] [address] [place] [address] 11/15/24
--- OUTSIDE RECORDS SUMMARY | 2025-08-13 10:04 | XMS_ITS | Patient Health Record ---
Author Organization [facility] Address [address] [place] [address] Care Team Providers Care Refrigerating Technician Name Role Phone Nikko Bird MD Primary Care Provider Dashawn Mendoza [facility] [phone] Allergies No Known Allergies Reason For Referral [...] Risk Notes Problem Peripheral vascular disease (400 279776) Peripheral vascular disease (I73.9) ActiveconfirmedProblemDisorder of amputation stump (798226471)Other complications of amputation stump (T87.89)ActiveconfirmedProblemAmputated below knee (479596961)Acquired absence of left leg below knee (Z89.512)Activeconfirmed Plan Of Treatment No Information Insurance Providers Payer Name Payer Address Payer Phone Subscriber Number Group Number Insured Name Patient Relationship to Insured Coverage Start Date Coverage End Date Medicare [employer] [address] [address] [place] [address] [id number] Deion POWELL - patient is the insured Medical (General) History Medical History History ICD Code Asthma/COPD Yes Cancer Type YesHeart problems: YesHigh Blood Pressure: YesSleep apnea: Yes Surgical History Surgery Date(Month/Year) Ankle ProstateFootNeckTriple bypass
== END 2025-08-13 09:58 | disposition home or self-care (01) ==
LOC: WC 10:00
PROVIDERS: PCP Family Medicine; Visit Provider Podiatrist Foot & Ankle Surgery
DX: I70.261 Atherosclerosis of native arteries of extremities with gangrene, right leg (principal); L97.516 Non-pressure chronic ulcer of other part of right foot with bone involvement without evidence of necrosis; L84 Corns and callosities
CPT/HCPCS: 97597